=== PATIENT | female | born 2000 | race Caucasian/White ===

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

== ENCOUNTER 2020-01-10 16:52 | Inpatient (IN) | payer MEDICAID ==
[~2020-01-10] VITALS: Ht 167.6 cm; Wt 104.5 kg
[~2020-01-10 16:52] MED LIST changes: -ALL10TAB29 PO; +CETI-24 PO; +OLAN5TAB PO
[2020-01-10 17:39] LABS: HEMATOCRIT 36.8 % (36.0-47.0); MEAN CORPUSCULAR HEMOGLOBIN 29.4 pg (27.0-33.0); MEAN CORPUSCULAR HGB CONC 32.6 g/dl (32.0-36.5); MEAN CORPUSCULAR VOLUME 90.2 fl (80.0-96.0); PLATELET COUNT, AUTOMATED 231 10^3/uL (150-450); RED BLOOD COUNT 4.08 10^6/uL (4.00-5.40); WHITE BLOOD COUNT 7.1 10^3/uL (4.0-10.0)
[2020-01-10 18:03] LABS: AMPHETAMINES LEVEL URINE NEGATIVE (NEGATIVE); BARBITURATES URINE NEGATIVE (NEGATIVE); BENZODIAZEPINES URINE NEGATIVE (NEGATIVE); CANNABINOIDS URINE NEGATIVE (NEGATIVE); COCAINE METABOLITE URINE NEGATIVE (NEGATIVE); METHADONE URINE NEGATIVE (NEGATIVE); OPIATES URINE NEGATIVE (NEGATIVE); PHENCYCLIDINE URINE NEGATIVE (NEGATIVE)
[2020-01-10 18:12] LABS: HCG, SERUM QUALITATIVE NEGATIVE (NEGATIVE)
[2020-01-10 18:23] LABS: ACETAMINOPHEN LEVEL < 2.0 UG/ML (10.0-30.0); ALBUMIN 3.8 GM/DL (3.2-5.2); ALT/SGPT 61 U/L (12-78); BILIRUBIN,DIRECT 0.1 MG/DL (0.0-0.2); BILIRUBIN,TOTAL 0.4 MG/DL (0.2-1.0); BLOOD UREA NITROGEN 13 MG/DL (7-18); CALCIUM LEVEL 8.6 MG/DL (8.5-10.1); CARBON DIOXIDE LEVEL 26 MEQ/L (21-32); CHLORIDE LEVEL 108 MEQ/L (98-107); CREATININE FOR GFR 0.56 MG/DL (0.55-1.30); ETHYL ALCOHOL (ETHANOL) 0.004 % (0.000-0.010); GLUCOSE, FASTING 103 MG/DL (70-100); POTASSIUM SERUM 3.9 MEQ/L (3.5-5.1); SALICYLATE LEVEL < 1.7 MG/DL (5.0-30.0); SODIUM LEVEL 137 MEQ/L (136-145); THYROID STIMULATING HORMONE 0.842 uIU/ML (0.463-3.98); TOTAL PROTEIN 7.2 GM/DL (6.4-8.2)
[2020-01-10] MEDS ORDERED: OLAN5TAB PO (18:49)
[2020-01-10] MEDS ORDERED: LORazepam 2 MG TAB PO STA (19:38)
[2020-01-10] MEDS ORDERED: MOM 30ML SUSPENSION UDC PO PRN (20:45)
[2020-01-10] MEDS: ACETAMINOPHEN TAB 650MG DOSE (2X325MG) PO PRN (21:14)
[2020-01-10] MEDS: OLANZapine 5 MG TAB PO SCH (22:33)
[2020-01-10 22:35] VITALS: BP 124/58
[2020-01-10] MEDS: traZODone 50 MG TAB PO PRN (23:19)
[2020-01-10] MEDS: OLANZapine ORAL DISINTEGRATING TAB 5MG PO PRN (23:21)
[2020-01-11 06:22] VITALS: BP 132/72
[2020-01-11] MEDS: OLANZapine 5 MG TAB PO SCH (09:00)
--- NOTE | 2020-01-11 15:43 | HPEPDOC ---
[facility] Medical History & Physical Date of Admission Jan 11, 2020 Date of Service: Jan 11, 2020 History and Physical CHIEF COMPLAINT: Depression. HISTORY OF PRESENTING ILLNESS: 19-year-old female with history of bipolar, depression, antisocial personality, ineffective coping, malingering, multiple psychiatric admissions, ingestion of various chemicals and medications, morbid obesity, suicidal attempts admitted to inpatient mental health unit due to severe depression and suicidal ideation. she was just discharged from the hospital recently. Hospitalist was asked to assess for any medical issues. Currently denies any fever or chills, shortness of breath, chest pain, pressure or tightness, lightheadedness, dizziness. Denies any nausea or vomiting, abdominal pain, diarrhea, constipation, bright red blood per rectum, melena, black tarry stools. Denies dysuria, urgency, frequency, fever, chills, flank pain. PAST MEDICAL HISTORY: 1. Suicide attempts with ingestion of various chemicals and medications. 2. Borderline personality disorder. 3. Bipolar disorder. 4. Depression. 5. Morbid obesity. 6. Antisocial personality disorder. 7. Malingering. PAST SURGICAL HISTORY: None. ALLERGIES: To HALDOL and RISPERIDONE. HOME MEDICATIONS: Please see the chart. FAMILY HISTORY: Parents alive and well. SOCIAL HISTORY: Denies recreational drug use, alcohol, and smoking. REVIEW OF SYSTEMS: Per HPI. 12-point system otherwise negative. PHYSICAL EXAMINATION: Temperature 98, pulse 63, respiratory rate 16, blood pressure 122/58, 98% on room air. Generally awake, alert, and oriented times three, answering questions appropriately. No jugular venous distention (JVD). No thyromegaly. No cervical lymphadenopathy. Lungs are clear to auscultation. No wheezing, rales, or rhonchi. Heart: S1, S2, sinus rhythm. No murmurs, rubs, or gallops. Abdomen: Obese, soft, nontender, nondistended. Positive bowel sounds. Extremities: No cyanosis, clubbing, or pitting edema. ASSESSMENT AND PLAN: 19-year-old female with history of bipolar disorder, depression, suicide attempts by various ingestion of chemicals and substances admitted to the inpatient mental suicidal ideation and depression IMPRESSION: 1. Bipolar disorder. 2. Depression. 3. Antisocial personality. 4. Inappropriate coping with history of malingering. 5. History of suicide attempts by various chemical ingestions. 6. Morbid obesity. PLAN: Resumed on home meds managed by psychiatrist. No acute medical issues Thank you for the consult Vital Signs Vital Signs Date Time Temp Pulse Resp B/P (MAP) Pulse Ox O2 Delivery O2 Flow Rate FiO2 01/11/20 06:22 97.8 70 12 132/72 (92) Room Air 01/10/20 22:35 98 Laboratory Data Labs 24H Laboratory Tests 2 01/10/20 17:26: Nucleated Red Blood Cells % (auto) 0.0, Anion Gap 3L, Calcium Level 8.6, Total Bilirubin 0.4, Direct Bilirubin 0.1, Aspartate Amino Transf (AST/SGOT) 38H, Alanine Aminotransferase (ALT/SGPT) 61, Alkaline Phosphatase 108, Total Protein 7.2, Albumin 3.8, Albumin/Globulin Ratio 1.1L, Thyroid Stimulating Hormone (TSH) 0.842, Human Chorionic Gonadotropin, Qual NEGATIVE, Salicylates Level < 1.7L, Urine Opiates Screen NEGATIVE, Urine Methadone Screen NEGATIVE, Acetaminophen Level < 2.0L, Urine Barbiturates Screen NEGATIVE, Urine Phencyclidine Screen NEGATIVE, Urine Amphetamines Screen NEGATIVE, Urine Benzodiazepines Screen NEGATIVE, Urine Cocaine Metabolite Screen NEGATIVE, Urine Cannabinoids Screen NEGATIVE, Ethyl Alcohol Level 0.004 CBC/BMP Laboratory Tests 01/10/20 17:26 Home Medications Scheduled Olanzapine (Olanzapine) 5 Mg Tablet, 5 MG PO TID Allergies Coded Allergies: haloperidol (Verified Adverse Reaction, Intermediate, LOCKJAW, 01/03/20) Has required & received this med many time without EPS noted risperidone (Verified Adverse Reaction, Mild, PSORIASIS, 11/26/19) A-FIB/CHADSVASC A-FIB History Current/History of A-Fib/PAF?: No Current PO Anticoag Therapy: No ANABELLA العراقي MD Jan 11, 2020 15:43
[2020-01-11] MEDS: DIVALPROEX 250 MG TAB PO SCH ×3 (16:00→20:22)
[2020-01-11] MEDS: OLANZapine ORAL DISINTEGRATING TAB 5MG PO PRN ×2 (16:52→22:11)
--- NOTE | 2020-01-11 18:21 | MHHPEPDOC ---
General Legal Status: 9.39 Chief Complaint ". History of Present Illness HISTORY OF THE PRESENT ILLNESS: Patient is a 19 -year-old , female, valeria Ibarra was seen today for a psychiatric evaluation--the patient has had numerous psychiatric hospitalizations and in fact was just discharged from the inpatient psychiatric unit yesterday only to be readmitted within hours This visit was performed as a telehealth visit utilizing an interactive a/v telecommunications system or telephone that permitted real time communication between myself and the patient--permission/consent from patient/guardian was obtained Patient states that after her discharge from the unit yesterday which she felt was too precipitous she went to [facility] and was placed temporarily in a small apartment and she was very uncomfortable in being in--at that point she started to hear voices and became acutely suicidal--she then returned to our emergency room to be evaluated and it was decided upon consultation with the on-call psychiatrist that she be readmitted Today when I met with her we decided after talking about what brought her back to the hospital that we would start a mood stabilizing medication specifically Depakote--she stated that she had been on Depakote in the past but was unsure as to how long she had been on it and whether or not it was helpful--she does not remember any kind of allergic reaction to it She stated that she does not want any kind of neuroleptic cord dopamine blocking agent at this point and in that regard the order of Zyprexa was discontinued Her mental status today was that she was alert and oriented although she was agitated and emotionally labile irritable and angry She denied any immediate auditory or visual hallucinations She did not appear to have any delusional thinking Her speech was pressured Her mood was depressed and agitated Her affect was consistent with her mood We will start with Depakote 250 mg twice daily morning and night Diagnosis bipolar disorder and borderline personality disorder 30 minutes was spent with the patient and the evaluation Psychiatric Review of Systems Depression (2 or more weeks): depressed mood, feelings of worthlesness, difficulty concentrating, suicidal thoughts Cecile (4 or more days of): irritable/elevated mood, expansive mood, flight of ideas PTSD: history of trauma Anxiety: situational anxiety, stressor related anxiety Past Psychiatric History Previous Psychiatric Diagnosis: . Previous Psychiatric Admissions: . Suicide Attempts: . Psychiatric Follow-up: . Psychiatric medications: . Past Medical History Head Injury: No Seizures: No Hospitalizations: No Surgeries: No Family Medical/Psychiatric HX Psychiatric Disorders: No Addiction: No Suicide Attemps/Completions: No Social History Childhood: . Abuse/Trauma:. Current Living Situation: . Education: . Employment: . Social Support: . Legal: . Marital: . A-FIB/CHADSVASC A-FIB History Current/History of A-Fib/PAF?: No Current PO Anticoag Therapy: No Initial Treatment Plan 1. Patient was admitted on a [9.39] status. 2. Complete history was obtained. 3. With patients permission, family will be contacted and database will be expanded. 4. Patients medication regimen will be reviewed and changed accordingly. 5. Patient will be provided with protected environment. 6. Patient will be treated with individual, group, and milieu therapies. 7. Patient will receive supportive psych-education. 8. Discharge planning will commence immediately. 9. Outpatient follow-up treatment will be strongly recommended. 10. The initial treatment plan will focus initially on: * Depression. * Risk for suicide. ESTIMATED LENGTH OF STAY: - DAYS. TIME SPENT COUNSELING AND COORDINATING INITIAL CARE: minutes. Vital Signs Vital Signs Date Time Temp Pulse Resp B/P (MAP) Pulse Ox O2 Delivery O2 Flow Rate FiO2 01/11/20 06:22 97.8 70 12 132/72 (92) Room Air 01/10/20 22:35 98 Medications Scheduled Olanzapine (Olanzapine) 5 Mg Tablet, 5 MG PO TID, (Reported) Allergies Coded Allergies: haloperidol (Verified Adverse Reaction, Intermediate, LOCKJAW, 01/03/20) Has required & received this med many time without EPS noted risperidone (Verified Adverse Reaction, Mild, PSORIASIS, 11/26/19) Rigo Smith MD Jan 11, 2020 18:21
[2020-01-11] MEDS ORDERED: diphenhydrAMINE 50MG/ML VIAL (J1200) IM ONE (20:15)
[2020-01-11] MEDS ORDERED: OLANZapine INTRAMUSCULAR 10MG VIAL IM ONE (20:15)
[2020-01-11] MEDS: ACETAMINOPHEN TAB 650MG DOSE (2X325MG) PO PRN (20:52)
[2020-01-11] MEDS ORDERED: HALOPERIDOL 5MG/ML VIAL (J1630 PER 1) IM ONE (23:00)
[2020-01-11 23:44] VITALS: BP 128/76
[2020-01-12] MEDS: DIVALPROEX 250 MG TAB PO SCH (11:18)
[2020-01-12] MEDS: ACETAMINOPHEN TAB 650MG DOSE (2X325MG) PO PRN (12:50)
[2020-01-12] MEDS: DIVALPROEX 500MG *ER* TAB PO SCH ×3 (14:15→21:40)
--- NOTE | 2020-01-12 14:31 | MHIPNPDOC ---
[facility] Progress Note Progress Note DATE OF SERVICE: 01/12/20 roldan was seen today for her medical psychotherapy Patient was seen for a medical psychotherapy session in which the patient's treatment plan was reviewed, mental status exam performed, vital signs reviewed, current medical conditions reviewed, and treatment goals were reviewed This visit was performed as a telehealth visit utilizing an interactive a/v telecommunications system or telephone that permitted real time communication between myself and the patient--permission/consent from patient/guardian was obtained The patient had a difficult evening yesterday requiring additional as needed medication in order to remain in control and diminish or aggression Today she came into the session primarily to convey her unhappiness with the treatment setting here We talked about the importance of compliance with medication and decided together to increase the dose of the Depakote which is going to hopefully help her with her anger response--the medication will be increased to 500 mg extended release twice a day MENTAL STATUS EXAM Level of consciousness--patient was alert and oriented to time place person Appearance-normal posture, normal dress, no prominent physical abnormalities, alert, cooperative Behavior--like to good, no psychomotor agitation or retardation, no abnormal movements, no tremor Speech--normal rate and rhythm--normal volume Mood--euthymic Affect--normal range and consistent with mood--stable Thought processes--logical and linear , goal directed and coherent--no thought blocking or flight of ideas, no loose associations, no tangential thinking, no word salad, no thought blocking, no circumstantiality Thought content--no ideas of reference no auditory or visual hallucinations, no delusional thinking, no thoughts of derealization or depersonalization, no obsessive thinking, no expressed phobias, Cognition--patient was alert and able to focus-sustained appropriate mental attention-memory immediate and short-term memory intact-abstract thinking present, Insight---fair Judgment or the ability to anticipate consequences of behavior intact Patient denied any suicidal ideation or impulses Patient denied any homicidal impulses or ideation 20 minutes was spent with the patient and documentation No other changes in treatment plan Vital Signs Vital Signs Date Time Temp Pulse Resp B/P (MAP) Pulse Ox O2 Delivery O2 Flow Rate FiO2 01/11/20 23:44 98.2 90 16 128/76 (93) 100 Room Air Current Medications Current Medications Medications (Trade) Dose Ordered Sig/Brielle Route PRN Reason Start Time Stop Time Status Last Admin Dose Admin Acetaminophen (Tylenol Tab) 650 mg Q6HP PRN PO HEADACHE or DISCOMFORT 01/10/20 20:45 01/12/20 12:50 Al Hydrox/Mg Hydrox/Simethicone (Mylanta) 30 ml Q4HP PRN PO HEARTBURN/INDIGESTION 01/10/20 20:45 Divalproex Sodium (Depakote Er) 500 mg BID PO 01/12/20 09:00 01/12/20 14:22 Divalproex Sodium (Depakote) 250 mg TID PO 01/11/20 16:00 01/12/20 13:52 DC 01/11/20 20:22 Home Med (Med Rec Complete!) ASDIRECTED XX 01/10/20 19:00 01/10/20 18:51 DC Lorazepam (Ativan) 2 mg STAT STAT PO 01/10/20 19:38 01/10/20 19:39 DC 01/10/20 19:49 Magnesium Hydroxide (Milk Of Magnesia) 30 ml DAILYPRN PRN PO CONSTIPATION 01/10/20 20:45 Olanzapine (ZyPREXA ZYDIS) 5 mg Q4HP PRN PO AGITATION 01/10/20 20:45 01/11/20 22:11 Olanzapine (ZyPREXA) 5 mg TID PO 01/10/20 21:00 01/11/20 16:31 DC 01/10/20 22:33 Trazodone HCl (Desyrel) 50 mg QHSP PRN PO INSOMNIA 01/10/20 20:45 01/10/20 23:19 Allergies Coded Allergies: haloperidol (Verified Adverse Reaction, Intermediate, LOCKJAW, 01/03/20) Has required & received this med many time without EPS noted risperidone (Verified Adverse Reaction, Mild, PSORIASIS, 11/26/19) Rigo Smith MD Jan 12, 2020 14:31
[2020-01-12 18:09] VITALS: BP 143/80
[2020-01-12] MEDS ORDERED: LORazepam 2 MG/ML VIAL IM STA (20:07)
[2020-01-12] MEDS ORDERED: diphenhydrAMINE 50MG/ML VIAL (J1200) IM STA (20:07)
[2020-01-12] MEDS ORDERED: HALOPERIDOL 5MG/ML VIAL (J1630 PER 1) IM STA (20:07)
--- NOTE | 2020-01-12 20:18 | IPNPDOC ---
Text Note Date of Service The patient was seen on 01/12/20. NOTE TIME OF SERVICE approx 800PM PSYCH CERTIFICATION FACE TO FACE: yes PHYSICIAN ASSESSMENT: The patient was angry, yelling and swearing at staff and not following verbal instructions GEN: agitated / yelling REASON FOR RESTRAINT: The patient was a danger to the staff. DE-ESCALATION INTERVENTIONS ATTEMPTED BEFORE USE OF RESTRAINTS: verbal redirection MECHANICAL AND/OR CHEMICAL] RESTRAINTS USED: Both LENGTH OF TIME ORDERED IN RESTRAINTS: 4 hours WHEN TO DISCONTINUE RESTRAINTS: When the patient is no longer a threat to to herself or others Post evaluation of restraint due in 24 hours. VS,Fishbone, I+O VS, Fishbone, I+O Vital Signs Date Time Temp Pulse Resp B/P (MAP) Pulse Ox O2 Delivery O2 Flow Rate FiO2 01/12/20 18:09 98.3 96 18 143/80 (101) 01/11/20 23:44 100 Room Air STEFANY CONLEY MD Jan 12, 2020 20:18
[2020-01-12 21:00] VITALS: BP 138/55
[2020-01-12 21:15] VITALS: BP 133/63
[2020-01-12] MEDS: MAALOX 30 ML SUSP *UDC PO PRN (23:51)
[2020-01-12] MEDS: traZODone 50 MG TAB PO PRN (23:52)
[2020-01-13] MEDS: DIVALPROEX 500MG *ER* TAB PO SCH ×2 (09:00→21:00)
[2020-01-13 15:49] VITALS: BP 124/71
[2020-01-13] MEDS ORDERED: diphenhydrAMINE 50MG CAP PO ONE (20:30)
[2020-01-13] MEDS ORDERED: LORazepam 2 MG TAB PO ONE (20:30)
[2020-01-13] MEDS: OLANZapine ORAL DISINTEGRATING TAB 5MG PO PRN (22:11)
[2020-01-14] MEDS: DIVALPROEX 500MG *ER* TAB PO SCH ×2 (09:00→21:00)
--- NOTE | 2020-01-14 09:14 | MHIPN ---
DATE: 01/13/2020 The patient was not seen today because she actually refused to see me. (DICTATION ENDED HERE)
[2020-01-14] MEDS: OLANZapine ORAL DISINTEGRATING TAB 5MG PO PRN (16:42)
[2020-01-14] MEDS ORDERED: LORazepam 2 MG TAB PO ONE (19:45)
[2020-01-14] MEDS ORDERED: diphenhydrAMINE 50MG CAP PO ONE (19:45)
[2020-01-14] MEDS ORDERED: diphenhydrAMINE 50MG/ML VIAL (J1200) IM ONE (20:30)
[2020-01-14] MEDS ORDERED: HALOPERIDOL 5MG/ML VIAL (J1630 PER 1) IM ONE (20:30)
[2020-01-14] MEDS ORDERED: LORazepam 2 MG/ML VIAL IM ONE (20:30)
[2020-01-14 21:00] VITALS: BP_SYST 122; BP_SYST 134; BP_DIAS 61
[2020-01-14 21:15] VITALS: BP 124/61
--- NOTE | 2020-01-14 21:23 | IPNPDOC ---
Text Note Date of Service The patient was seen on 01/14/20. NOTE TIME OF SERVICE approx 758PM PSYCH CERTIFICATION FACE TO FACE: yes PHYSICIAN ASSESSMENT: The patient was angry, yelling at staff and not following verbal instructions REASON FOR RESTRAINT: The patient was a danger to the staff. DE-ESCALATION INTERVENTIONS ATTEMPTED BEFORE USE OF RESTRAINTS: verbal redirection MECHANICAL AND/OR CHEMICAL] RESTRAINTS USED: Both LENGTH OF TIME ORDERED IN RESTRAINTS: 4 hours WHEN TO DISCONTINUE RESTRAINTS: When the patient is no longer a threat to to herself or others Post evaluation of restraint due in 24 hours. VS,Fishbone, I+O VS, Fishbone, I+O Vital Signs Date Time Temp Pulse Resp B/P (MAP) Pulse Ox O2 Delivery O2 Flow Rate FiO2 01/14/20 21:15 98.4 83 14 124/61 (82) 97 Room Air STEFANY CONLEY MD Jan 14, 2020 21:23
[2020-01-14 21:35] VITALS: BP 134/61
[2020-01-14] MEDS: ACETAMINOPHEN TAB 650MG DOSE (2X325MG) PO PRN (23:23)
[2020-01-15] VITALS (7 sets, daily range): BP systolic 114–183; BP diastolic 57–115
[2020-01-15] MEDS ORDERED: LORazepam 2 MG/ML VIAL IM STA (01:13)
[2020-01-15] MEDS ORDERED: diphenhydrAMINE 50MG/ML VIAL (J1200) IM STA (01:13)
[2020-01-15] MEDS ORDERED: HALOPERIDOL 5MG/ML VIAL (J1630 PER 1) IM STA (01:13)
--- NOTE | 2020-01-15 01:21 | IPNPDOC ---
Text Note Date of Service The patient was seen on 01/15/20. NOTE TIME OF SERVICE approx 115AM PSYCH CERTIFICATION FACE TO FACE: yes PHYSICIAN ASSESSMENT: The patient was angry, yelling & swearing at staff and not following verbal instructions. REASON FOR RESTRAINT: The patient was a danger to the staff. DE-ESCALATION INTERVENTIONS ATTEMPTED BEFORE USE OF RESTRAINTS: verbal redirection MECHANICAL AND/OR CHEMICAL] RESTRAINTS USED: Both LENGTH OF TIME ORDERED IN RESTRAINTS: 4 hours WHEN TO DISCONTINUE RESTRAINTS: When the patient is no longer a threat to to herself or others Post evaluation of restraint due in 24 hours. VS,Fishbone, I+O VS, Fishbone, I+O Vital Signs Date Time Temp Pulse Resp B/P (MAP) Pulse Ox O2 Delivery O2 Flow Rate FiO2 01/14/20 21:35 98.5 74 14 134/61 100 Room Air STEFANY CONLEY MD Jan 15, 2020 01:21
[2020-01-15] MEDS: DIVALPROEX 500MG *ER* TAB PO SCH ×2 (09:00→19:58)
--- NOTE | 2020-01-15 09:28 | MHIPNPDOC ---
[facility] Progress Note Progress Note DATE OF SERVICE: 01/15/20 HPI: patient is attempted to be seen.However, She was asleep for a majority of the day and is generally unable to engage in any meaningful discussions. She gen altay has been behaviorally problematic and had shown disinterest in engaging. MEDICATIONS: Drug assessment could not be completed due to her being asleep and being uninterested. Objective Patient asleep Assessment F60.3 Borderline personality disorder F32.9 Major depressive disorder, single episode, unspecified Plan Consider alternatives and attempt to figure out a plan that will continue however difficult. Patient continues to refuse, her options at this time are quite grim as she has exhausted all forms of social support, and we are generally unable to create a significant plan for her. Continue to attempt to determine the most effective option. Vital Signs Vital Signs Date Time Temp Pulse Resp B/P (MAP) Pulse Ox O2 Delivery O2 Flow Rate FiO2 01/15/20 03:00 97.3 72 16 114/68 98 Room Air Current Medications Current Medications Medications (Trade) Dose Ordered Sig/Brielle Route PRN Reason Start Time Stop Time Status Last Admin Dose Admin Acetaminophen (Tylenol Tab) 650 mg Q6HP PRN PO HEADACHE or DISCOMFORT 01/10/20 20:45 01/14/20 23:23 Al Hydrox/Mg Hydrox/Simethicone (Mylanta) 30 ml Q4HP PRN PO HEARTBURN/INDIGESTION 01/10/20 20:45 01/12/20 23:51 Diphenhydramine HCl (Benadryl) 50 mg STAT STAT IM 01/12/20 20:07 01/12/20 20:09 DC 01/12/20 20:16 Diphenhydramine HCl (Benadryl) 50 mg STAT STAT IM 01/15/20 01:13 01/15/20 01:15 DC 01/15/20 01:18 Divalproex Sodium (Depakote Er) 500 mg BID PO 01/12/20 09:00 01/12/20 21:40 Divalproex Sodium (Depakote) 250 mg TID PO 01/11/20 16:00 01/12/20 13:52 DC 01/11/20 20:22 Haloperidol (Haldol) 10 mg STAT STAT IM 01/12/20 20:07 01/12/20 20:09 DC 01/12/20 20:16 Haloperidol (Haldol) 10 mg STAT STAT IM 01/15/20 01:13 01/15/20 01:14 DC 01/15/20 01:18 Home Med (Med Rec Complete!) ASDIRECTED XX 01/10/20 19:00 01/10/20 18:51 DC Lorazepam (Ativan) 2 mg STAT STAT IM 01/12/20 20:07 01/12/20 20:09 DC 01/12/20 20:16 Lorazepam (Ativan) 2 mg STAT STAT IM 01/15/20 01:13 01/15/20 01:15 DC 01/15/20 01:19 Lorazepam (Ativan) 2 mg STAT STAT PO 01/10/20 19:38 01/10/20 19:39 DC 01/10/20 19:49 Magnesium Hydroxide (Milk Of Magnesia) 30 ml DAILYPRN PRN PO CONSTIPATION 01/10/20 20:45 Olanzapine (ZyPREXA ZYDIS) 5 mg Q4HP PRN PO AGITATION 01/10/20 20:45 01/14/20 16:42 Olanzapine (ZyPREXA) 5 mg TID PO 01/10/20 21:00 01/11/20 16:31 DC 01/10/20 22:33 Trazodone HCl (Desyrel) 50 mg QHSP PRN PO INSOMNIA 01/10/20 20:45 01/12/20 23:52 Allergies Coded Allergies: haloperidol (Verified Adverse Reaction, Intermediate, LOCKJAW, 01/03/20) Has required & received this med many time without EPS noted risperidone (Verified Adverse Reaction, Mild, PSORIASIS, 11/26/19) FELIX BUTCHER DO Jan 15, 2020 09:28
--- NOTE | 2020-01-15 09:31 | MHIPNPDOC ---
[facility] Progress Note Progress Note DATE OF SERVICE: 01/15/20 HISTORY: . VITAL SIGNS: See below. NEW TEST RESULTS: . CURRENT MEDICATIONS: See below. MENTAL STATUS EXAMINATION: Patient is a -year old female, who is . Speech: Is . Language skills are . Thought processes including: . Thought content: . Abstract reasoning, and computation: . Description of assoc iations: . Description of abnormal or psychotic thoughts: . Judgment: . Insight: [very limited, good, fair. poor]. Orientation: . Recent and remote memory: . Attention span and concentration: . Language: . Fund of knowledge: . Mood: . Affect: . DIAGNOSES: 1. . 2. . 3. . ASSESSMENT: MANAGEMENT PLAN: . TIME SPENT: minutes. Vital Signs Vital Signs Date Time Temp Pulse Resp B/P (MAP) Pulse Ox O2 Delivery O2 Flow Rate FiO2 01/15/20 03:00 97.3 72 16 114/68 98 Room Air Current Medications Current Medications Medications (Trade) Dose Ordered Sig/Brielle Route PRN Reason Start Time Stop Time Status Last Admin Dose Admin Acetaminophen (Tylenol Tab) 650 mg Q6HP PRN PO HEADACHE or DISCOMFORT 01/10/20 20:45 01/14/20 23:23 Al Hydrox/Mg Hydrox/Simethicone (Mylanta) 30 ml Q4HP PRN PO HEARTBURN/INDIGESTION 01/10/20 20:45 01/12/20 23:51 Diphenhydramine HCl (Benadryl) 50 mg STAT STAT IM 01/12/20 20:07 01/12/20 20:09 DC 01/12/20 20:16 Diphenhydramine HCl (Benadryl) 50 mg STAT STAT IM 01/15/20 01:13 01/15/20 01:15 DC 01/15/20 01:18 Divalproex Sodium (Depakote Er) 500 mg BID PO 01/12/20 09:00 01/12/20 21:40 Divalproex Sodium (Depakote) 250 mg TID PO 01/11/20 16:00 01/12/20 13:52 DC 01/11/20 20:22 Haloperidol (Haldol) 10 mg STAT STAT IM 01/12/20 20:07 01/12/20 20:09 DC 01/12/20 20:16 Haloperidol (Haldol) 10 mg STAT STAT IM 01/15/20 01:13 01/15/20 01:14 DC 01/15/20 01:18 Home Med (Med Rec Complete!) ASDIRECTED XX 01/10/20 19:00 01/10/20 18:51 DC Lorazepam (Ativan) 2 mg STAT STAT IM 01/12/20 20:07 01/12/20 20:09 DC 01/12/20 20:16 Lorazepam (Ativan) 2 mg STAT STAT IM 01/15/20 01:13 01/15/20 01:15 DC 01/15/20 01:19 Lorazepam (Ativan) 2 mg STAT STAT PO 01/10/20 19:38 01/10/20 19:39 DC 01/10/20 19:49 Magnesium Hydroxide (Milk Of Magnesia) 30 ml DAILYPRN PRN PO CONSTIPATION 01/10/20 20:45 Olanzapine (ZyPREXA ZYDIS) 5 mg Q4HP PRN PO AGITATION 01/10/20 20:45 01/14/20 16:42 Olanzapine (ZyPREXA) 5 mg TID PO 01/10/20 21:00 01/11/20 16:31 DC 01/10/20 22:33 Trazodone HCl (Desyrel) 50 mg QHSP PRN PO INSOMNIA 01/10/20 20:45 01/12/20 23:52 Allergies Coded Allergies: haloperidol (Verified Adverse Reaction, Intermediate, LOCKJAW, 01/03/20) Has required & received this med many time without EPS noted risperidone (Verified Adverse Reaction, Mild, PSORIASIS, 11/26/19) FELIX BUTCHER DO Jan 15, 2020 09:31
--- NOTE | 2020-01-15 10:59 | MHIPN ---
DATE OF SERVICE: 01/14/2020 The patient is seen via telepsychiatry due to the current Coronavirus crisis. The patient basically tells me that "I just woke up and I want to get off one-to-one". She became upset because I told her that I was not prepared to take her off of stage I and so she just basically stated that she was not going to "waste my time" and she got up and left. MENTAL STATUS EXAMINATION: I am not able to really do a whole mental status exam on this patient because she just basically got up and left. DIAGNOSIS: Bipolar disorder. Borderline personality disorder. TREATMENT PLAN: We will continue to monitor the patient for continued elevation and stabilization of her mood and behavior.
[2020-01-15] MEDS: OLANZapine ORAL DISINTEGRATING TAB 5MG PO PRN (19:58)
[2020-01-15] MEDS: ACETAMINOPHEN TAB 650MG DOSE (2X325MG) PO PRN (19:59)
--- NOTE | 2020-01-15 20:38 | IPNPDOC ---
Text Note Date of Service The patient was seen on 01/15/20. NOTE Pt was c/o of ankle pain and inability to walk. On PE ankle is swollen and she c/o pain with passive flexion. #Right ankle pain r/o fx Plan: f/u xray of right ankle / ibuprofen PRN VS,Fishbone, I+O VS, Fishbone, I+O Vital Signs Date Time Temp Pulse Resp B/P (MAP) Pulse Ox O2 Delivery O2 Flow Rate FiO2 01/15/20 12:52 Room Air 01/15/20 03:00 97.3 72 16 114/68 98 STEFANY CONLEY MD Jan 15, 2020 20:37
[2020-01-15] MEDS: IBUPROFEN 800 MG TAB PO PRN (21:38)
[2020-01-16] MEDS: DIVALPROEX 500MG *ER* TAB PO SCH ×2 (09:10→21:00)
[2020-01-16] MEDS: IBUPROFEN 800 MG TAB PO PRN ×2 (09:15→23:33)
[2020-01-16] MEDS: ACETAMINOPHEN TAB 650MG DOSE (2X325MG) PO PRN ×2 (13:45→23:33)
[2020-01-16] MEDS ORDERED: PERCOCET 5MG/325MG TAB PO ONE (14:30)
[2020-01-16 16:40] VITALS: BP 134/82
--- NOTE | 2020-01-16 17:14 | IPNPDOC ---
Subjective Date Seen The patient was seen on 01/16/20. Subjective Chief Complaint/HPI patient was psychotic last night and was jumping from bed to bed and twisted her right ankle. Xray of the right ankle showed lateral malleolar fracture and longitudinal fracture of the distal fibula nondisplaced. Patient with severe pain . Ortho consulted. started on percocet for pain control. Objective Physical Examination General Exam: Positive: Alert, Cooperative, Moderate Distress (screaming, crying , using foul language) Eye Exam: Positive: PERRLA, Conjunctiva & lids normal, EOMI; Negative: Sclera icteric ENT Exam: Positive: Atraumatic, Mucous membr. moist/pink, Pharynx Normal Neck Exam: Positive: Supple; Negative: JVD, thyromegaly Chest Exam: Positive: Clear to auscultation, Normal air movement Heart Exam: Positive: Rate Normal, Regular Rhythm, Normal S1, Normal S2; Negative: Murmurs, Rubs Abdomen Exam: Positive: Normal bowel sounds, Soft; Negative: Tenderness, Hepatospenomegaly Extremity Exam: Positive: Tenderness (right ankle and fot), Swelling (right ankle and foot) Skin Exam: Positive: Nl turgor and temperature; Negative: Rash, Breakdown Neuro Exam: Positive: Normal Speech, Strength at 5/5 X4 ext, Normal Tone Assessment /Plan Assessment 19-year-old female with history of bipolar disorder, depression, suicide attempts by various ingestion of chemicals and substances, antisocial personality behavior, obesity, inappropriate coping, h/o malingering was admitted to the inpatient mental suicidal ideation and depression. She was having a psychotic episode last night jumping from bed to bed when she twisted her right ankle and sustained fracture. Right ankle fracture involving the lateral malleolus and distal fibula consulted Orthopedics No surgical intervention needed. will give Percocet for pain control. further management as per ortho. DVT prophylaxis if needed as per ortho Psych problems as per psychiatry. We will continue to follow this patient. Plan/VTE VTE Prophylaxis Ordered?: No VS, I&O, 24H, Fishbone Vital Signs/I&O Vital Signs Date Time Temp Pulse Resp B/P (MAP) Pulse Ox O2 Delivery O2 Flow Rate FiO2 01/16/20 16:40 98.5 93 20 134/82 (99) 01/15/20 19:20 98 Room Air AYALA DE LA CRUZ MD Jan 16, 2020 17:14
--- NOTE | 2020-01-16 18:55 | CR ---
DATE OF CONSULTATION: 01/16/2020 CHIEF COMPLAINT: Right ankle pain. HISTORY OF PRESENT ILLNESS: Yareli was admitted due to mental health issues last night, 01/15/2020. Upon admission, was complaining of ankle pain and x-ray was taken showing a nondisplaced distal fibula fracture. Orthopedics was consulted to apply a splint. Health survey was reviewed. Pertinent positives and negatives were noted. Physical exam revealed a well-developed, well-nourished in no acute distress, alert female. Inspection of the leg revealed fusiform edema about the ankle on the right, tenderness to palpation laterally, no medial ankle tenderness. The patient reported intact sensation to light touch through the foot with palpable distal pulses and brisk capillary refill. Calf was soft and nontender. There were no palpable cords. Images nondisplaced right distal fibula fracture. IMPRESSION: Nondisplaced right distal fibula fracture in an inpatient mental health patient. PLAN: The plan was to go ahead and apply a splint so that was accomplished using Ortho-Glass cast padding and Matthias wrap. The patient tolerated the application well and there were no complications. She is going to go to physical therapy for evaluation and training for crutch use. She is non-weightbearing to the right lower extremity and she is going to followup at the [facility] this week for application of the cast. Recommended pain control is 1000 mg of Tylenol up to three times a day as well as elevation above the level of the heart. For further details please see the medical record.
--- NOTE | 2020-01-16 20:35 | MHIPN ---
DATE: 01/16/2020 The patient today was very angry and agitated at me because she wanted to be discharged today. However, the patient continues to be very agitated and had to be given more medication of Haldol 10 mg, Ativan 2 mg, Benadryl 50 mg. Actually she has been doing this almost every night, and she has had to be placed in restraints at times, also. Therefore, I discussed with the patient that I do not think that she is stable, and I also discussed with her that every time we discharge her, she keeps coming back to the emergency room and so I feel that we really need to see stabilization from her, at least for a few days. MENTAL STATUS EXAM: This patient was alert and oriented times three. She was verbally spontaneous; actually she was pretty angry and yelling and mood is angry, affect is labile. She did not say anything that made me think she was psychotic. She did not voice any actual suicidal or homicidal thoughts today. Her concentration is poor. Insight and judgment poor. DIAGNOSES: Bipolar disorder. Borderline personality disorder. TREATMENT PLAN: At this point, we will continue to monitor the patient for her continued episodes of agitation and aggressive behavior and voicing of self-harm thoughts. The plan will be to discharge her when she does show that she is able to remain in control and exhibit some degree of mood stabilization and is no longer felt to be a danger to herself or others.
[2020-01-16] MEDS ORDERED: LORazepam 1 MG TAB PO ONE (21:30)
[2020-01-16] MEDS ORDERED: LORazepam 2 MG/ML VIAL IM STA (21:58)
[2020-01-16] MEDS ORDERED: HALOPERIDOL 5MG/ML VIAL (J1630 PER 1) IM STA (21:58)
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
[2020-01-16 23:00] VITALS: BP 131/65
[2020-01-17 06:49] VITALS: BP 132/75
[2020-01-17] MEDS: haloperidoL 5 MG TAB PO SCH ×2 (09:00→21:03)
[2020-01-17] MEDS: DIVALPROEX 500MG *ER* TAB PO SCH ×2 (09:00→21:04)
--- NOTE | 2020-01-17 09:36 | MHPR ---
General Date: Jan 17, 2020 Time: 10:30 Post-Restraint Evaluation THE OUTCOME OF THE RESTRAINT: positive EFFECTIVENESS OF THE RESTRAINT: Mechanical and/or chemical: [Positive]. ANY EVIDENCE THAT THE PATIENT WAS AFFECTED EMOTIONALLY: no ANY NEED FOR COUNSELING/ASSISTANCE: no CHANGES IN TREATMENT PLAN: change to haldol scheduled RECOMMENDATIONS FOR FUTURE INCIDENTS: attention seeking behavior should not be endulged FELIX BUTCHER DO Jan 17, 2020 09:36
--- NOTE | 2020-01-17 09:36 | MHIPNPDOC ---
[facility] Progress Note Progress Note DATE OF SERVICE: 01/17/20 Subjective Patient still resistant and having behavioral issues, doesn't want to engage in any meaningful discussion today and is highly attention seeking. Objective Behavior: Disshoveled. Uninterested. Laying in bed generally does not want ot speak. Affect: Irritable. Dysphoric. Speech: Normal rate. Normal volume. Cognition: Alert, Attentive, and Oriented to person, place, time. Judgement: Limited. Insight: Limited. Assessment F33.40 Major depressive disorder, recurrent, in remission, unspecified F60.3 Borderline personality disorder F60.2 Antisocial personality disorder Plan Continue to focus on behavioral disengagement to uncouple patients behavioral problems primarily focusing on negative reinforcement. Continue one-to-one sitter Patients allergy to Haldol is not likely an allergy Attempted to change medications due to previous restraint ordered. Vital Signs Vital Signs Date Time Temp Pulse Resp B/P (MAP) Pulse Ox O2 Delivery O2 Flow Rate FiO2 01/17/20 06:49 98.3 75 12 132/75 (94) Room Air 01/16/20 23:00 100 Current Medications Current Medications Medications (Trade) Dose Ordered Sig/Brielle Route PRN Reason Start Time Stop Time Status Last Admin Dose Admin Acetaminophen (Tylenol Tab) 650 mg Q6HP PRN PO HEADACHE or DISCOMFORT 01/10/20 20:45 01/16/20 23:33 Al Hydrox/Mg Hydrox/Simethicone (Mylanta) 30 ml Q4HP PRN PO HEARTBURN/INDIGESTION 01/10/20 20:45 01/12/20 23:51 Diphenhydramine HCl (Benadryl) 50 mg STAT STAT IM 01/12/20 20:07 01/12/20 20:09 DC 01/12/20 20:16 Diphenhydramine HCl (Benadryl) 50 mg STAT STAT IM 01/15/20 01:13 01/15/20 01:15 DC 01/15/20 01:18 Divalproex Sodium (Depakote Er) 500 mg BID PO 01/12/20 09:00 01/16/20 09:10 Divalproex Sodium (Depakote) 250 mg TID PO 01/11/20 16:00 01/12/20 13:52 DC 01/11/20 20:22 Haloperidol (Haldol) 7.5 mg STAT STAT IM 01/16/20 21:58 01/16/20 22:00 DC 01/16/20 22:06 Haloperidol (Haldol) 10 mg STAT STAT IM 01/12/20 20:07 01/12/20 20:09 DC 01/12/20 20:16 Haloperidol (Haldol) 10 mg STAT STAT IM 01/15/20 01:13 01/15/20 01:14 DC 01/15/20 01:18 Home Med (Med Rec Complete!) ASDIRECTED XX 01/10/20 19:00 01/10/20 18:51 DC Ibuprofen (Advil) 800 mg Q6HP PRN PO MODERATE PAIN (PS 5-7) 01/15/20 20:45 01/16/20 23:33 Lorazepam (Ativan) 1 mg STAT STAT IM 01/16/20 21:58 01/16/20 22:00 DC 01/16/20 22:06 Lorazepam (Ativan) 2 mg STAT STAT IM 01/12/20 20:07 01/12/20 20:09 DC 01/12/20 20:16 Lorazepam (Ativan) 2 mg STAT STAT IM 01/15/20 01:13 01/15/20 01:15 DC 01/15/20 01:19 Lorazepam (Ativan) 2 mg STAT STAT PO 01/10/20 19:38 01/10/20 19:39 DC 01/10/20 19:49 Magnesium Hydroxide (Milk Of Magnesia) 30 ml DAILYPRN PRN PO CONSTIPATION 01/10/20 20:45 Olanzapine (ZyPREXA ZYDIS) 5 mg Q4HP PRN PO AGITATION 01/10/20 20:45 01/15/20 19:58 Olanzapine (ZyPREXA) 5 mg TID PO 01/10/20 21:00 01/11/20 16:31 DC 01/10/20 22:33 Trazodone HCl (Desyrel) 50 mg QHSP PRN PO INSOMNIA 01/10/20 20:45 01/12/20 23:52 Allergies Coded Allergies: haloperidol (Verified Adverse Reaction, Intermediate, LOCKJAW, 01/03/20) Has required & received this med many time without EPS noted risperidone (Verified Adverse Reaction, Mild, PSORIASIS, 11/26/19) FELIX BUTCHER DO Jan 17, 2020 09:36
[2020-01-17] MEDS ORDERED: chlorproMAZINE INJ 50MG/2ML AMP (J3230) IM ONE (11:15)
[2020-01-17] MEDS ORDERED: chlorproMAZINE INJ 50MG/2ML AMP (J3230) IM STA (16:01)
[2020-01-17 16:10] VITALS: BP 135/77
[2020-01-17 16:25] VITALS: BP 159/70
[2020-01-17 16:40] VITALS: BP 148/67
[2020-01-17 16:55] VITALS: BP 142/83
[2020-01-17 17:10] VITALS: BP 152/90
[2020-01-17] MEDS: traZODone 50 MG TAB PO PRN (21:03)
[2020-01-17] MEDS: IBUPROFEN 800 MG TAB PO PRN (21:04)
[2020-01-17] MEDS ORDERED: zolPIDEM TARTRATE 5 MG TAB PO ONE (23:30)
[2020-01-17] MEDS: ACETAMINOPHEN TAB 650MG DOSE (2X325MG) PO PRN (23:39)
[2020-01-18] MEDS: haloperidoL 5 MG TAB PO SCH ×2 (09:00→20:36)
[2020-01-18] MEDS: DIVALPROEX 500MG *ER* TAB PO SCH ×2 (09:00→20:37)
[2020-01-18] MEDS: amLODIPine 5 MG TAB PO SCH (09:00)
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
--- NOTE | 2020-01-18 12:57 | IPNPDOC ---
Text Note Date of Service The patient was seen on 01/18/20. NOTE No acute medical issues at this point. Her ankle fracture has been casted by orthopedics. Razo control with ibuprofen and tylenol. Her blood pressure mildly elevated from yesterday possibly due to pain and her psych issues will make amlodipine 5 mg available if needed. Hospitalist will sign off. Please reconsult if needed. VS,Fishbone, I+O VS, Fishbone, I+O Vital Signs Date Time Temp Pulse Resp B/P (MAP) Pulse Ox O2 Delivery O2 Flow Rate FiO2 01/17/20 17:10 96.7 94 20 152/90 100 01/17/20 06:49 Room Air AYALA DE LA CRUZ MD Jan 18, 2020 12:57
[2020-01-18] MEDS: OLANZapine ORAL DISINTEGRATING TAB 5MG PO PRN (19:46)
[2020-01-18] MEDS ORDERED: LORazepam 2 MG TAB PO ONE (21:45)
[2020-01-18] MEDS ORDERED: diphenhydrAMINE 50MG CAP PO ONE (21:45)
[2020-01-18] MEDS: traZODone 50 MG TAB PO PRN (23:13)
[2020-01-19] MEDS: DIVALPROEX 500MG *ER* TAB PO SCH ×2 (09:00→21:00)
[2020-01-19] MEDS: haloperidoL 5 MG TAB PO SCH ×2 (09:00→21:00)
[2020-01-19] MEDS: amLODIPine 5 MG TAB PO SCH (09:00)
[2020-01-19] MEDS: IBUPROFEN 800 MG TAB PO PRN (11:29)
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
[2020-01-19] MEDS: ACETAMINOPHEN TAB 650MG DOSE (2X325MG) PO PRN (18:59)
[2020-01-19] MEDS ORDERED: chlorproMAZINE 25 MG TABLET PO ONE (20:30)
[2020-01-19 21:00] VITALS: BP 125/66
[2020-01-19 21:30] VITALS: BP 143/67
--- NOTE | 2020-01-20 06:54 | IPNPDOC ---
Text Note Date of Service The patient was seen on 01/19/20. NOTE PSYCH CERTIFICATION FACE TO FACE: yes PHYSICIAN ASSESSMENT: The patient was threatening staff and not following verbal instructions. REASON FOR RESTRAINT: The patient was a danger to the staff. DE-ESCALATION INTERVENTIONS ATTEMPTED BEFORE USE OF RESTRAINTS: verbal redirection MECHANICAL AND/OR CHEMICAL] RESTRAINTS USED: mechanical LENGTH OF TIME ORDERED IN RESTRAINTS: 4 hours WHEN TO DISCONTINUE RESTRAINTS: When the patient is no longer a threat to to herself or others Post evaluation of restraint due in 24 hours. VS,Fishbone, I+O VS, Fishbone, I+O Vital Signs Date Time Temp Pulse Resp B/P (MAP) Pulse Ox O2 Delivery O2 Flow Rate FiO2 01/19/20 21:30 98.6 83 18 143/67 98 Room Air STEFANY CONLEY MD Jan 20, 2020 06:54
[2020-01-20] MEDS: DIVALPROEX 500MG *ER* TAB PO SCH ×2 (09:00→20:40)
[2020-01-20] MEDS: amLODIPine 5 MG TAB PO SCH (09:00)
[2020-01-20] MEDS: haloperidoL 5 MG TAB PO SCH ×2 (09:00→20:40)
--- NOTE | 2020-01-20 12:22 | MHPR ---
General Date: Jan 20, 2020 Time: 12:21 Post-Restraint Evaluation THE OUTCOME OF THE RESTRAINT: patient was able to return to control. EFFECTIVENESS OF THE RESTRAINT: Mechanical and/or chemical: [Positive]. ANY EVIDENCE THAT THE PATIENT WAS AFFECTED EMOTIONALLY: no ANY NEED FOR COUNSELING/ASSISTANCE: no CHANGES IN TREATMENT PLAN: will continue to advocate consistent behavioral plan RECOMMENDATIONS FOR FUTURE INCIDENTS: premedication earlier in agitation to perhaps avoid her needing to be restrained FELIX BUTCHER DO Jan 20, 2020 12:22
[2020-01-20] MEDS: IBUPROFEN 800 MG TAB PO PRN ×2 (12:40→13:25)
[2020-01-20 16:29] VITALS: BP 140/70
[2020-01-20] MEDS: ACETAMINOPHEN TAB 650MG DOSE (2X325MG) PO PRN (16:55)
[2020-01-20] MEDS: chlorproMAZINE 25 MG TABLET PO PRN (19:37)
[2020-01-20] MEDS: traZODone 50 MG TAB PO PRN (21:48)
[2020-01-21] MEDS: amLODIPine 5 MG TAB PO SCH (09:00)
[2020-01-21] MEDS: haloperidoL 5 MG TAB PO SCH ×2 (10:58→20:59)
[2020-01-21] MEDS: DIVALPROEX 500MG *ER* TAB PO SCH ×2 (10:58→20:59)
[2020-01-21] MEDS ORDERED: chlorproMAZINE 25 MG TABLET PO SCH ×2 (15:00→21:00)
[2020-01-21] MEDS: chlorproMAZINE 25 MG TABLET PO PRN (15:08)
[2020-01-21 16:32] VITALS: BP 130/67
--- NOTE | 2020-01-21 19:37 | IPNPDOC ---
Text Note Date of Service The patient was seen on 01/21/20. NOTE PSYCH CERTIFICATION FACE TO FACE: yes PHYSICIAN ASSESSMENT: The patient was fighting with other residents and swinging her wheel chair at staff members REASON FOR RESTRAINT: The patient was a danger to the staff. DE-ESCALATION INTERVENTIONS ATTEMPTED BEFORE USE OF RESTRAINTS: verbal redirection MECHANICAL AND/OR CHEMICAL] RESTRAINTS USED: mechanical LENGTH OF TIME ORDERED IN RESTRAINTS: 4 hours WHEN TO DISCONTINUE RESTRAINTS: When the patient is no longer a threat to to herself or others Post evaluation of restraint due in 24 hours. VS,Fishbone, I+O VS, Fishbone, I+O Vital Signs Date Time Temp Pulse Resp B/P (MAP) Pulse Ox O2 Delivery O2 Flow Rate FiO2 01/21/20 16:32 98.1 94 20 130/67 (88) 01/19/20 21:30 98 Room Air STEFANY CONLEY MD Jan 21, 2020 19:37
[2020-01-21] MEDS ORDERED: HALOPERIDOL 5MG/ML VIAL (J1630 PER 1) IM STA ×2 (19:42→22:01)
[2020-01-21 20:30] VITALS: BP 132/70
[2020-01-21 20:45] VITALS: BP 130/79
[2020-01-21] MEDS: chlorproMAZINE 25 MG TABLET PO SCH (20:59)
--- NOTE | 2020-01-21 22:07 | IPNPDOC ---
Text Note Date of Service The patient was seen on 01/21/20. NOTE TIME OF SERVICE 0958PM PSYCH CERTIFICATION FACE TO FACE: yes PHYSICIAN ASSESSMENT: The patient was using utensils to cut herself. REASON FOR RESTRAINT: The patient was a danger to herself DE-ESCALATION INTERVENTIONS ATTEMPTED BEFORE USE OF RESTRAINTS: verbal redirection MECHANICAL AND/OR CHEMICAL] RESTRAINTS USED: mechanical & chemical LENGTH OF TIME ORDERED IN RESTRAINTS: 4 hours WHEN TO DISCONTINUE RESTRAINTS: When the patient is no longer a threat to to herself or others Post evaluation of restraint due in 24 hours. VS,Fishbone, I+O VS, Fishbone, I+O Vital Signs Date Time Temp Pulse Resp B/P (MAP) Pulse Ox O2 Delivery O2 Flow Rate FiO2 01/21/20 20:45 80 14 130/79 01/21/20 16:32 98.1 01/19/20 21:30 98 Room Air STEFANY CONLEY MD Jan 21, 2020 22:07
[2020-01-22] MEDS: DIVALPROEX 500MG *ER* TAB PO SCH ×2 (08:34→21:00)
[2020-01-22] MEDS: amLODIPine 5 MG TAB PO SCH (08:35)
[2020-01-22] MEDS: haloperidoL 5 MG TAB PO SCH ×2 (08:35→21:00)
[2020-01-22] MEDS: chlorproMAZINE 25 MG TABLET PO SCH (19:36)
--- NOTE | 2020-01-22 19:55 | MHIPNPDOC ---
[facility] Progress Note Progress Note DATE OF SERVICE: 01/22/20 HISTORY: As per ED records: "Reason for Referral Pt was brought to the ED by [facility] after she contacted them stating she was suicidal with plan to OD on her psych medications. Pt was just discharged from [facility] 3 hours ago... Chief Complaint pt states, "I just want to be heard." Pt reports being discharged from [facility] earlier today and is "feeling overwhelmed with her life." States she continues to struggle with her Father not wanting a relationship with her any more and feels other family members are "disowning me as well." Pt states, "I just want to end it all." Pt has a long hx of [facility] hospitalization and ED visits. Apparently, she was supposed to be discharged from [facility] yesterday, however she requested her discharge be delayed "because I wasn't ready." She continues to voice SI with plan to OD". VITAL SIGNS: See below. NEW TEST RESULTS: See below CURRENT MEDICATIONS: See below. MENTAL STATUS EXAMINATION: Patient is a 19 year old female, who is alert, dressed in hospital clothes, disheveled, ambulating through the Unit in a wheelchair Speech: slurred, slow, normal tone and volume Language skills are intact. Thought processes including: linear but not necessarily coherent Thought content: She reports angry and anxious thoughts, reports depressed thoughts, denies passive/active suicidal ideation at this time Description of abnormal or psychotic thoughts: Denies bizarre and grandiose delusions. He denies TAV hallucinations, she is not responding to internal stimuli Judgment: poor. Insight: poor. Orientation: x 3. Recent and remote memory: intact. Attention span and concentration: good. Language: no abnormalities observed. Fund of knowledge: below average. Mood: angry,sad, depressed. Affect: congruent with mood, labile. DIAGNOSES: F33.9 Major depressive disorder, recurrent, unspecified F60.3 Borderline personality disorder F60.2 Antisocial personality disorder ASSESSMENT: she was angry this afternoon because she is not able to leave [facility], because she is not being discharged. However, when I attempt to discuss with her that doing things that keep putting her at risk, like trying to tie a strap from her mask around the neck ( last night) or injure herself with a fork is just going to delay her discharge or make it quite impossible because she is not safe. This evening the Nursing staff contacted me to let me know that she is throwing things at staff and other patients, she is being dangerous to others too and for that reason she had to receive Thorazine 150 mgs IM because she kept refusing to take it PO MANAGEMENT PLAN: Will continue with current treatment plan TIME SPENT: 25 minutes. Vital Signs Vital Signs Date Time Temp Pulse Resp B/P (MAP) Pulse Ox O2 Delivery O2 Flow Rate FiO2 01/21/20 20:45 80 14 130/79 01/21/20 16:32 98.1 01/19/20 21:30 98 Room Air Current Medications Current Medications Medications (Trade) Dose Ordered Sig/Brielle Route PRN Reason Start Time Stop Time Status Last Admin Dose Admin Acetaminophen (Tylenol Tab) 650 mg Q6HP PRN PO HEADACHE or DISCOMFORT 01/10/20 20:45 01/20/20 16:55 Al Hydrox/Mg Hydrox/Simethicone (Mylanta) 30 ml Q4HP PRN PO HEARTBURN/INDIGESTION 01/10/20 20:45 01/12/20 23:51 Amlodipine Besylate (Norvasc) 5 mg DAILY PO 01/18/20 09:00 Chlorpromazine HCl (Thorazine) 100 mg STAT STAT IM 01/17/20 16:01 01/17/20 16:05 DC 01/17/20 16:08 Chlorpromazine HCl (Thorazine) 150 mg BID PO 01/21/20 21:00 01/21/20 15:00 DC Chlorpromazine HCl (Thorazine) 150 mg Q3H PRN PO AGITATION 01/20/20 19:30 01/21/20 15:08 Chlorpromazine HCl (Thorazine) 150 mg QHS PO 01/21/20 15:00 01/21/20 15:06 DC Chlorpromazine HCl (Thorazine) 150 mg QHS PO 01/21/20 21:00 01/21/20 20:59 Diphenhydramine HCl (Benadryl) 50 mg STAT STAT IM 01/12/20 20:07 01/12/20 20:09 DC 01/12/20 20:16 Diphenhydramine HCl (Benadryl) 50 mg STAT STAT IM 01/15/20 01:13 01/15/20 01:15 DC 01/15/20 01:18 Divalproex Sodium (Depakote Er) 500 mg BID PO 01/12/20 09:00 01/21/20 20:59 Divalproex Sodium (Depakote) 250 mg TID PO 01/11/20 16:00 01/12/20 13:52 DC 01/11/20 20:22 Haloperidol (Haldol) 5 mg BID PO 01/17/20 09:00 01/21/20 10:58 Haloperidol (Haldol) 7.5 mg STAT STAT IM 01/16/20 21:58 01/16/20 22:00 DC 01/16/20 22:06 Haloperidol (Haldol) 10 mg STAT STAT IM 01/21/20 19:42 01/21/20 19:44 DC 01/21/20 19:48 Haloperidol (Haldol) 10 mg STAT STAT IM 01/21/20 22:01 01/21/20 22:03 DC 01/21/20 22:08 Haloperidol (Haldol) 10 mg STAT STAT IM 01/12/20 20:07 01/12/20 20:09 DC 01/12/20 20:16 Haloperidol (Haldol) 10 mg STAT STAT IM 01/15/20 01:13 01/15/20 01:14 DC 01/15/20 01:18 Home Med (Med Rec Complete!) ASDIRECTED XX 01/10/20 19:00 01/10/20 18:51 DC Ibuprofen (Advil) 800 mg Q6HP PRN PO MODERATE PAIN (PS 5-7) 01/15/20 20:45 01/20/20 13:25 Lorazepam (Ativan) 1 mg STAT STAT IM 01/16/20 21:58 01/16/20 22:00 DC 01/16/20 22:06 Lorazepam (Ativan) 2 mg STAT STAT IM 01/12/20 20:07 01/12/20 20:09 DC 01/12/20 20:16 Lorazepam (Ativan) 2 mg STAT STAT IM 01/15/20 01:13 01/15/20 01:15 DC 01/15/20 01:19 Lorazepam (Ativan) 2 mg STAT STAT PO 01/10/20 19:38 01/10/20 19:39 DC 01/10/20 19:49 Magnesium Hydroxide (Milk Of Magnesia) 30 ml DAILYPRN PRN PO CONSTIPATION 01/10/20 20:45 Olanzapine (ZyPREXA ZYDIS) 5 mg Q4HP PRN PO AGITATION 01/10/20 20:45 01/21/20 14:58 DC 01/18/20 19:46 Olanzapine (ZyPREXA) 5 mg TID PO 01/10/20 21:00 01/11/20 16:31 DC 01/10/20 22:33 Trazodone HCl (Desyrel) 50 mg QHSP PRN PO INSOMNIA 01/10/20 20:45 01/20/20 21:48 Allergies Coded Allergies: haloperidol (Verified Adverse Reaction, Intermediate, LOCKJAW, 01/03/20) Has required & received this med many time without EPS noted risperidone (Verified Adverse Reaction, Mild, PSORIASIS, 11/26/19) DAVONTE OLIVEROS MD Jan 22, 2020 17:29
[2020-01-22] MEDS ORDERED: chlorproMAZINE INJ 50MG/2ML AMP (J3230) IM ONE (20:00)
[2020-01-22] MEDS ORDERED: diphenhydrAMINE 50MG/ML VIAL (J1200) IM ONE (21:26)
[2020-01-22] MEDS ORDERED: LORazepam 2 MG/ML VIAL IM ONE (21:26)
[2020-01-23] MEDS: amLODIPine 5 MG TAB PO SCH (09:00)
[2020-01-23] MEDS: haloperidoL 5 MG TAB PO SCH ×2 (09:00→21:00)
[2020-01-23] MEDS: DIVALPROEX 500MG *ER* TAB PO SCH ×2 (09:00→21:00)
[2020-01-23] MEDS: ACETAMINOPHEN TAB 650MG DOSE (2X325MG) PO PRN (16:28)
[2020-01-23] MEDS ORDERED: HALOPERIDOL 5MG/ML VIAL (J1630 PER 1) IM STA ×2 (19:38→20:13)
[2020-01-23] MEDS ORDERED: diphenhydrAMINE 50MG/ML VIAL (J1200) IM STA ×2 (19:38→20:13)
[2020-01-23] MEDS ORDERED: LORazepam 2 MG/ML VIAL IM STA ×2 (19:38→20:13)
--- NOTE | 2020-01-23 19:40 | MHIPNPDOC ---
[facility] Progress Note Progress Note DATE OF SERVICE: 01/23/20 HISTORY: As per ED records: "Reason for Referral Pt was brought to the ED by [facility] after she contacted them stating she was suicidal with plan to OD on her psych medications. Pt was just discharged from [facility] 3 hours ago... Chief Complaint pt states, "I just want to be heard." Pt reports being discharged from [facility] earlier today and is "feeling overwhelmed with her life." States she continues to struggle with her Father not wanting a relationship with her any more and feels other family members are "disowning me as well." Pt states, "I just want to end it all." Pt has a long hx of [facility] hospitalization and ED visits. Apparently, she was supposed to be discharged from [facility] yesterday, however she requested her discharge be delayed "because I wasn't ready." She continues to voice SI with plan to OD". VITAL SIGNS: See below. NEW TEST RESULTS: See below CURRENT MEDICATIONS: See below. MENTAL STATUS EXAMINATION: Patient is a 19 year old female, who is alert, dressed in hospital clothes, disheveled, ambulating through the Unit in a wheelchair Speech: slow, normal tone and volume, clear, spontaneous Language skills are intact. Thought processes including: linear but not necessarily coherent Thought content: Positive for cognitive distortions, anxious and depressive t houghts. She denies passive/active suicidal ideation at this time Description of abnormal or psychotic thoughts: Denies thought delusions, denies TAV hallucinations, she is not responding to internal stimuli. Judgment: poor. Insight: poor. Orientation: x 3. Recent and remote memory: intact. Attention span and concentration: good at times Language: no abnormalities observed. Fund of knowledge: below average. Mood: sad. Affect: congruent with mood, labile. DIAGNOSES: F33.9 Major depressive disorder, recurrent, unspecified F60.3 Borderline personality disorder F60.2 Antisocial personality disorder ASSESSMENT: She is less angry, less irritable today. she says she would like to be w/o a sitter and I explained that unfortunately due to her most recent behaviors like for example: Jumping on beds and falling injuring her foot, trying to tie a mask strap around her neck, trying to swallow a [employer] cap, injuring her arm with a fork only proves that she is unsafe to be left alone. She says she doesn't like to take Thorazine 150 mgs at night but I asked her if less amount of medication would calm her down. She said yes but I really doubt if because last night she still required an extra dose of Ativan and 50 mgs of Benadryl to calm down. Her insight, judgment and impusive behavior are still poor. Her mood is still labile, fluctuating, unstable. MANAGEMENT PLAN: Will continue with current treatment plan TIME SPENT: 25 minutes. Vital Signs Vital Signs Date Time Temp Pulse Resp B/P (MAP) Pulse Ox O2 Delivery O2 Flow Rate FiO2 01/21/20 20:45 80 14 130/79 01/21/20 16:32 98.1 01/19/20 21:30 98 Room Air Current Medications Current Medications Medications (Trade) Dose Ordered Sig/Brielle Route PRN Reason Start Time Stop Time Status Last Admin Dose Admin Acetaminophen (Tylenol Tab) 650 mg Q6HP PRN PO HEADACHE or DISCOMFORT 01/10/20 20:45 01/23/20 16:28 Al Hydrox/Mg Hydrox/Simethicone (Mylanta) 30 ml Q4HP PRN PO HEARTBURN/INDIGESTION 01/10/20 20:45 01/12/20 23:51 Amlodipine Besylate (Norvasc) 5 mg DAILY PO 01/18/20 09:00 Chlorpromazine HCl (Thorazine) 100 mg STAT STAT IM 01/17/20 16:01 01/17/20 16:05 DC 01/17/20 16:08 Chlorpromazine HCl (Thorazine) 150 mg BID PO 01/21/20 21:00 01/21/20 15:00 DC Chlorpromazine HCl (Thorazine) 150 mg Q3H PRN PO AGITATION 01/20/20 19:30 01/21/20 15:08 Chlorpromazine HCl (Thorazine) 150 mg QHS PO 01/21/20 15:00 01/21/20 15:06 DC Chlorpromazine HCl (Thorazine) 150 mg QHS PO 01/21/20 21:00 01/22/20 19:36 Diphenhydramine HCl (Benadryl) 50 mg STAT STAT IM 01/12/20 20:07 01/12/20 20:09 DC 01/12/20 20:16 Diphenhydramine HCl (Benadryl) 50 mg STAT STAT IM 01/15/20 01:13 01/15/20 01:15 DC 01/15/20 01:18 Divalproex Sodium (Depakote Er) 500 mg BID PO 01/12/20 09:00 01/21/20 20:59 Divalproex Sodium (Depakote) 250 mg TID PO 01/11/20 16:00 01/12/20 13:52 DC 01/11/20 20:22 Haloperidol (Haldol) 5 mg BID PO 01/17/20 09:00 01/21/20 10:58 Haloperidol (Haldol) 7.5 mg STAT STAT IM 01/16/20 21:58 01/16/20 22:00 DC 01/16/20 22:06 Haloperidol (Haldol) 10 mg STAT STAT IM 01/21/20 19:42 01/21/20 19:44 DC 01/21/20 19:48 Haloperidol (Haldol) 10 mg STAT STAT IM 01/21/20 22:01 01/21/20 22:03 DC 01/21/20 22:08 Haloperidol (Haldol) 10 mg STAT STAT IM 01/12/20 20:07 01/12/20 20:09 DC 01/12/20 20:16 Haloperidol (Haldol) 10 mg STAT STAT IM 01/15/20 01:13 01/15/20 01:14 DC 01/15/20 01:18 Home Med (Med Rec Complete!) ASDIRECTED XX 01/10/20 19:00 01/10/20 18:51 DC Ibuprofen (Advil) 800 mg Q6HP PRN PO MODERATE PAIN (PS 5-7) 01/15/20 20:45 01/20/20 13:25 Lorazepam (Ativan) 1 mg STAT STAT IM 01/16/20 21:58 01/16/20 22:00 DC 01/16/20 22:06 Lorazepam (Ativan) 2 mg STAT STAT IM 01/12/20 20:07 01/12/20 20:09 DC 01/12/20 20:16 Lorazepam (Ativan) 2 mg STAT STAT IM 01/15/20 01:13 01/15/20 01:15 DC 01/15/20 01:19 Lorazepam (Ativan) 2 mg STAT STAT PO 01/10/20 19:38 01/10/20 19:39 DC 01/10/20 19:49 Magnesium Hydroxide (Milk Of Magnesia) 30 ml DAILYPRN PRN PO CONSTIPATION 01/10/20 20:45 Olanzapine (ZyPREXA ZYDIS) 5 mg Q4HP PRN PO AGITATION 01/10/20 20:45 01/21/20 14:58 DC 01/18/20 19:46 Olanzapine (ZyPREXA) 5 mg TID PO 01/10/20 21:00 01/11/20 16:31 DC 01/10/20 22:33 Trazodone HCl (Desyrel) 50 mg QHSP PRN PO INSOMNIA 01/10/20 20:45 01/20/20 21:48 Allergies Coded Allergies: haloperidol (Verified Adverse Reaction, Intermediate, LOCKJAW, 01/03/20) Has required & received this med many time without EPS noted risperidone (Verified Adverse Reaction, Mild, PSORIASIS, 11/26/19) DAVONTE OLIVEROS MD Jan 23, 2020 19:40
[2020-01-23] MEDS: chlorproMAZINE 25 MG TABLET PO SCH (21:00)
--- NOTE | 2020-01-23 21:06 | IPNPDOC ---
Text Note Date of Service The patient was seen on 01/23/20. NOTE Code 25: Code 25 was called at approximately 7:40 this evening. I come down to evaluate patient and she was sitting on the floor and staff was talking her into sitting and to a wheelchair. After discussion, patient reported that she would be compl iant with taking medications and avoiding restraints. She willingly sat into wheelchair and was being wheeled to medication room. Psychiatry has provided medications; haloperidol 5 mg IM, diphenhydramine 50 mg IM, and lorazepam 2 mg IM. VS,Fishbone, I+O VS, Fishbone, I+O Vital Signs Date Time Temp Pulse Resp B/P (MAP) Pulse Ox O2 Delivery O2 Flow Rate FiO2 01/21/20 20:45 80 14 130/79 01/21/20 16:32 98.1 01/19/20 21:30 98 Room Air DANI HART MD Jan 23, 2020 21:06
[2020-01-23] MEDS ORDERED: chlorproMAZINE INJ 50MG/2ML AMP (J3230) IM STA (21:11)
[2020-01-24] MEDS: DIVALPROEX 500MG *ER* TAB PO SCH ×2 (09:00→21:44)
[2020-01-24] MEDS: amLODIPine 5 MG TAB PO SCH (09:00)
[2020-01-24] MEDS: haloperidoL 5 MG TAB PO SCH ×2 (09:00→21:44)
[2020-01-24 17:18] VITALS: BP 149/79
--- NOTE | 2020-01-24 21:08 | MHIPNPDOC ---
[facility] Progress Note Progress Note DATE OF SERVICE: 01/24/20 HISTORY: As per ED records: "Reason for Referral Pt was brought to the ED by [facility] after she contacted them stating she was suicidal with plan to OD on her psych medications. Pt was just discharged from [facility] 3 hours ago... Chief Complaint pt states, "I just want to be heard." Pt reports being discharged from [facility] earlier today and is "feeling overwhelmed with her life." States she continues to struggle with her Father not wanting a relationship with her any more and feels other family members are "disowning me as well." Pt states, "I just want to end it all." Pt has a long hx of [facility] hospitalization and ED visits. Apparently, she was supposed to be discharged from [facility] yesterday, however she requested her discharge be delayed "because I wasn't ready." She continues to voice SI with plan to OD". VITAL SIGNS: See below. NEW TEST RESULTS: See below CURRENT MEDICATIONS: See below. MENTAL STATUS EXAMINATION: Patient is a 19 year old female, who is alert, dressed in hospital clothes, disheveled, ambulating through the Unit in a wheelchair Speech: slow, normal tone and volume, clear, spontaneous Language skills are intact. Thought processes including: linear Thought content: Positive for depressive and angry thoughts. She denies passive/active suicidal ideation at this time Description of abnormal or psychotic thoughts: Denies thought delusions, denies TAV hallucinations, she is not responding to internal stimuli. Judgment: poor. Insight: poor. Orientation: x 3. Recent and remote memory: intact. Attention span and concentration: good at times, depending on the subject. If she is interested in a conversation she will be able to focus Language: no abnormalities observed. Fund of knowledge: below average. Mood: sad, mildly irritable. Affect: congruent with mood, labile. DIAGNOSES: F33.9 Major depressive disorder, recurrent, unspecified F60.3 Borderline personality disorder F60.2 Antisocial personality disorder ASSESSMENT: She told me today that she has been trying to apply her coping skills. She has continued to exhibit behavioral problems in the unit even when she has been told multiple times that if she doesn't want to go long-term she should try to modify her behavior but she continues to engage in impulsive, aggressive and dangerous acts against herself and against other people. Her insight and judgment are poor MANAGEMENT PLAN: Will continue with current treatment plan TIME SPENT: 25 minutes. Vital Signs Vital Signs Date Time Temp Pulse Resp B/P (MAP) Pulse Ox O2 Delivery O2 Flow Rate FiO2 01/24/20 17:18 97.4 93 18 149/79 (102) 01/19/20 21:30 98 Room Air Current Medications Current Medications Medications (Trade) Dose Ordered Sig/Brielle Route PRN Reason Start Time Stop Time Status Last Admin Dose Admin Acetaminophen (Tylenol Tab) 650 mg Q6HP PRN PO HEADACHE or DISCOMFORT 01/10/20 20:45 01/23/20 16:28 Al Hydrox/Mg Hydrox/Simethicone (Mylanta) 30 ml Q4HP PRN PO HEARTBURN/INDIGESTION 01/10/20 20:45 01/12/20 23:51 Amlodipine Besylate (Norvasc) 5 mg DAILY PO 01/18/20 09:00 Chlorpromazine HCl (Thorazine) 100 mg STAT STAT IM 01/17/20 16:01 01/17/20 16:05 DC 01/17/20 16:08 Chlorpromazine HCl (Thorazine) 150 mg BID PO 01/21/20 21:00 01/21/20 15:00 DC Chlorpromazine HCl (Thorazine) 150 mg Q3H PRN PO AGITATION 01/20/20 19:30 01/21/20 15:08 Chlorpromazine HCl (Thorazine) 150 mg QHS PO 01/21/20 15:00 01/21/20 15:06 DC Chlorpromazine HCl (Thorazine) 150 mg QHS PO 01/21/20 21:00 01/22/20 19:36 Chlorpromazine HCl (Thorazine) 150 mg STAT STAT IM 01/23/20 21:11 01/23/20 21:13 DC 01/23/20 21:36 Diphenhydramine HCl (Benadryl) 50 mg STAT STAT IM 01/23/20 19:38 01/23/20 19:41 DC 01/23/20 19:50 Diphenhydramine HCl (Benadryl) 50 mg STAT STAT IM 01/23/20 20:13 01/23/20 20:17 DC 01/23/20 20:29 Diphenhydramine HCl (Benadryl) 50 mg STAT STAT IM 01/12/20 20:07 01/12/20 20:09 DC 01/12/20 20:16 Diphenhydramine HCl (Benadryl) 50 mg STAT STAT IM 01/15/20 01:13 01/15/20 01:15 DC 01/15/20 01:18 Divalproex Sodium (Depakote Er) 500 mg BID PO 01/12/20 09:00 01/21/20 20:59 Divalproex Sodium (Depakote) 250 mg TID PO 01/11/20 16:00 01/12/20 13:52 DC 01/11/20 20:22 Haloperidol (Haldol) 5 mg BID PO 01/17/20 09:00 01/21/20 10:58 Haloperidol (Haldol) 5 mg STAT STAT IM 01/23/20 20:13 01/23/20 20:17 DC 01/23/20 20:45 Haloperidol (Haldol) 7.5 mg STAT STAT IM 01/16/20 21:58 01/16/20 22:00 DC 01/16/20 22:06 Haloperidol (Haldol) 10 mg STAT STAT IM 01/21/20 19:42 01/21/20 19:44 DC 01/21/20 19:48 Haloperidol (Haldol) 10 mg STAT STAT IM 01/21/20 22:01 01/21/20 22:03 DC 01/21/20 22:08 Haloperidol (Haldol) 10 mg STAT STAT IM 01/23/20 19:38 01/23/20 19:41 DC 01/23/20 19:49 Haloperidol (Haldol) 10 mg STAT STAT IM 01/12/20 20:07 01/12/20 20:09 DC 01/12/20 20:16 Haloperidol (Haldol) 10 mg STAT STAT IM 01/15/20 01:13 01/15/20 01:14 DC 01/15/20 01:18 Home Med (Med Rec Complete!) ASDIRECTED XX 01/10/20 19:00 01/10/20 18:51 DC Ibuprofen (Advil) 800 mg Q6HP PRN PO MODERATE PAIN (PS 5-7) 01/15/20 20:45 01/20/20 13:25 Lorazepam (Ativan) 1 mg STAT STAT IM 01/16/20 21:58 01/16/20 22:00 DC 01/16/20 22:06 Lorazepam (Ativan) 2 mg STAT STAT IM 01/23/20 19:38 01/23/20 19:41 DC 01/23/20 19:50 Lorazepam (Ativan) 2 mg STAT STAT IM 01/23/20 20:13 01/23/20 20:17 DC 01/23/20 20:31 Lorazepam (Ativan) 2 mg STAT STAT IM 01/12/20 20:07 01/12/20 20:09 DC 01/12/20 20:16 Lorazepam (Ativan) 2 mg STAT STAT IM 01/15/20 01:13 01/15/20 01:15 DC 01/15/20 01:19 Lorazepam (Ativan) 2 mg STAT STAT PO 01/10/20 19:38 01/10/20 19:39 DC 01/10/20 19:49 Magnesium Hydroxide (Milk Of Magnesia) 30 ml DAILYPRN PRN PO CONSTIPATION 01/10/20 20:45 Olanzapine (ZyPREXA ZYDIS) 5 mg Q4HP PRN PO AGITATION 01/10/20 20:45 01/21/20 14:58 DC 01/18/20 19:46 Olanzapine (ZyPREXA) 5 mg TID PO 01/10/20 21:00 01/11/20 16:31 DC 01/10/20 22:33 Trazodone HCl (Desyrel) 50 mg QHSP PRN PO INSOMNIA 01/10/20 20:45 01/20/20 21:48 Allergies Coded Allergies: haloperidol (Verified Adverse Reaction, Intermediate, LOCKJAW, 01/03/20) Has required & received this med many time without EPS noted risperidone (Verified Adverse Reaction, Mild, PSORIASIS, 11/26/19) DAVONTE OLIVEROS MD Jan 24, 2020 21:08
[2020-01-24] MEDS: chlorproMAZINE 25 MG TABLET PO SCH (21:44)
[2020-01-24] MEDS ORDERED: LORazepam 2 MG/ML VIAL IM STA (21:54)
--- NOTE | 2020-01-24 21:59 | IPNPDOC ---
Text Note Date of Service The patient was seen on 01/24/20. NOTE Code 25: Code 25 was called at approximately 9:45PM this evening. I came down to evaluate patient and she was in a wheelchair and about to be moved into bed with restraints. Patient was agitated but got into bed and was put into restraints by staff. Orders for restraints and medications have been provided by psychiatry. VS,Fishbone, I+O VS, Fishbone, I+O Vital Signs Date Time Temp Pulse Resp B/P (MAP) Pulse Ox O2 Delivery O2 Flow Rate FiO2 01/24/20 17:18 97.4 93 18 149/79 (102) 01/19/20 21:30 98 Room Air DANI HART MD Jan 24, 2020 21:59
[2020-01-24] MEDS ORDERED: HALOPERIDOL 5MG/ML VIAL (J1630 PER 1) IM STA (22:40)
[2020-01-25] MEDS: haloperidoL 5 MG TAB PO SCH ×2 (09:00→21:20)
[2020-01-25] MEDS: DIVALPROEX 500MG *ER* TAB PO SCH ×3 (09:00→23:05)
[2020-01-25] MEDS: amLODIPine 5 MG TAB PO SCH (09:00)
[2020-01-25] MEDS ORDERED: TUBERCULIN PPD 5 UNITS/0.1 ML ID ONE (15:30)
[2020-01-25 18:28] VITALS: BP 153/67
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
[2020-01-25] MEDS: DIVALPROEX 250MG *ER* TAB PO SCH (21:00)
[2020-01-25] MEDS: chlorproMAZINE 25 MG TABLET PO SCH ×2 (21:00→23:09)
[2020-01-26] MEDS: traZODone 50 MG TAB PO PRN (00:37)
[2020-01-26] MEDS: amLODIPine 5 MG TAB PO SCH (08:20)
[2020-01-26] MEDS: haloperidoL 5 MG TAB PO SCH ×3 (08:24→21:32)
[2020-01-26 18:07] VITALS: BP 135/83
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
[2020-01-26] MEDS: DIVALPROEX 500MG *ER* TAB PO SCH (21:32)
[2020-01-26] MEDS: DIVALPROEX 250MG *ER* TAB PO SCH (21:32)
[2020-01-26] MEDS: chlorproMAZINE 25 MG TABLET PO SCH (21:42)
[2020-01-27] MEDS ORDERED: diphenhydrAMINE 50MG/ML VIAL (J1200) IM ONE (00:30)
[2020-01-27] MEDS ORDERED: chlorproMAZINE INJ 50MG/2ML AMP (J3230) IM ONE (00:30)
[2020-01-27] MEDS: haloperidoL 5 MG TAB PO SCH ×2 (09:00→21:00)
[2020-01-27] MEDS: DIVALPROEX 500MG *ER* TAB PO SCH ×3 (09:00→22:28)
[2020-01-27] MEDS: amLODIPine 5 MG TAB PO SCH (09:00)
[2020-01-27 15:42] VITALS: BP 163/64
[2020-01-27] MEDS ORDERED: PPD DOCUMENTATION ENTRY MISC XX ONE (15:45)
[2020-01-27] MEDS ORDERED: HALOPERIDOL 5MG/ML VIAL (J1630 PER 1) IM STA (19:42)
[2020-01-27] MEDS ORDERED: LORazepam 2 MG/ML VIAL IM STA (19:42)
[2020-01-27] MEDS ORDERED: diphenhydrAMINE 50MG/ML VIAL (J1200) IM STA (19:42)
[2020-01-27 21:00] VITALS: BP 138/79
[2020-01-27] MEDS: DIVALPROEX 250MG *ER* TAB PO SCH ×2 (21:00→22:28)
[2020-01-27] MEDS: chlorproMAZINE 25 MG TABLET PO SCH (22:29)
[2020-01-28] MEDS: DIVALPROEX 500MG *ER* TAB PO SCH ×2 (08:56→21:00)
[2020-01-28] MEDS: haloperidoL 5 MG TAB PO SCH ×2 (08:57→21:00)
[2020-01-28] MEDS: amLODIPine 5 MG TAB PO SCH (08:57)
[2020-01-28 16:23] VITALS: BP 147/63
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
[2020-01-28] MEDS: chlorproMAZINE 25 MG TABLET PO SCH (21:00)
[2020-01-28] MEDS: DIVALPROEX 250MG *ER* TAB PO SCH (21:00)
[2020-01-28] MEDS ORDERED: diphenhydrAMINE 50MG/ML VIAL (J1200) IM STA (21:23)
[2020-01-28] MEDS ORDERED: LORazepam 2 MG/ML VIAL IM STA (21:23)
[2020-01-28] MEDS ORDERED: HALOPERIDOL 5MG/ML VIAL (J1630 PER 1) IM STA (21:23)
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
[2020-01-29] MEDS: amLODIPine 5 MG TAB PO SCH (09:00)
[2020-01-29] MEDS: haloperidoL 5 MG TAB PO SCH ×2 (09:00→20:30)
[2020-01-29] MEDS: DIVALPROEX 500MG *ER* TAB PO SCH ×2 (09:00→20:30)
--- NOTE | 2020-01-29 09:10 | MHPR ---
General Date: Jan 29, 2020 Time: 09:09 Post-Restraint Evaluation THE OUTCOME OF THE RESTRAINT: positive EFFECTIVENESS OF THE RESTRAINT: Mechanical and/or chemical: [Positive]. ANY EVIDENCE THAT THE PATIENT WAS AFFECTED EMOTIONALLY: no ANY NEED FOR COUNSELING/ASSISTANCE: no CHANGES IN TREATMENT PLAN: increase meds RECOMMENDATIONS FOR FUTURE INCIDENTS: n/a FELIX BUTCHER DO Jan 29, 2020 09:10
[2020-01-29] MEDS: MAALOX 30 ML SUSP *UDC PO PRN ×2 (14:50→22:47)
[2020-01-29 16:11] VITALS: BP 137/75
[2020-01-29 17:18] VITALS: BP 122/76
[2020-01-29] MEDS: DIVALPROEX 250MG *ER* TAB PO SCH (20:30)
[2020-01-29] MEDS: chlorproMAZINE 25 MG TABLET PO SCH (20:31)
--- NOTE | 2020-01-30 07:54 | MHIPNPDOC ---
[facility] Progress Note Progress Note DATE OF SERVICE: 01/30/20 HPI: Yareli presents today for status report after changing medication. After taking the medication, she did not code. Yareli does not want to use the whee lchair anymore, but wants to start walking. Additionally, an active area of checking is seeking placement for Yareli. MEDICATIONS: She is doing better on the medication Thorazine, however she does not notice anything different. Objective Behavior: Unengaged. Generally unmotivated. Talks very little. Judgement: Poor judgement. Insight: Poor insight. Assessment F33.9 Major depressive disorder, recurrent, unspecified F60.2 Antisocial personality disorder Plan Continue to seek placement, however, she is still behaviorally problematic. Continue Thorazine 150 mg, twice a day as it appears to have some benefits since the patient did not code. Increase dosage of Thorazine as she tolerates it. Vital Signs Vital Signs Date Time Temp Pulse Resp B/P (MAP) Pulse Ox O2 Delivery O2 Flow Rate FiO2 01/29/20 17:18 102 16 122/76 (91) 01/29/20 16:11 97.3 01/27/20 21:00 98 Room Air Current Medications Current Medications Medications (Trade) Dose Ordered Sig/Brielle Route PRN Reason Start Time Stop Time Status Last Admin Dose Admin Acetaminophen (Tylenol Tab) 650 mg Q6HP PRN PO HEADACHE or DISCOMFORT 01/10/20 20:45 01/23/20 16:28 Al Hydrox/Mg Hydrox/Simethicone (Mylanta) 30 ml Q4HP PRN PO HEARTBURN/INDIGESTION 01/10/20 20:45 01/29/20 22:47 Amlodipine Besylate (Norvasc) 5 mg DAILY PO 01/18/20 09:00 Chlorpromazine HCl (Thorazine) 100 mg STAT STAT IM 01/17/20 16:01 01/17/20 16:05 DC 01/17/20 16:08 Chlorpromazine HCl (Thorazine) 150 mg BID PO 01/21/20 21:00 01/21/20 15:00 DC Chlorpromazine HCl (Thorazine) 150 mg BID PO 01/29/20 21:00 01/29/20 20:31 Chlorpromazine HCl (Thorazine) 150 mg Q3H PRN PO AGITATION 01/20/20 19:30 01/21/20 15:08 Chlorpromazine HCl (Thorazine) 150 mg QHS PO 01/21/20 15:00 01/21/20 15:06 DC Chlorpromazine HCl (Thorazine) 150 mg QHS PO 01/21/20 21:00 01/29/20 09:11 DC 01/27/20 22:29 Chlorpromazine HCl (Thorazine) 150 mg STAT STAT IM 01/23/20 21:11 01/23/20 21:13 DC 01/23/20 21:36 Diphenhydramine HCl (Benadryl) 50 mg STAT STAT IM 01/23/20 19:38 01/23/20 19:41 DC 01/23/20 19:50 Diphenhydramine HCl (Benadryl) 50 mg STAT STAT IM 01/23/20 20:13 01/23/20 20:17 DC 01/23/20 20:29 Diphenhydramine HCl (Benadryl) 50 mg STAT STAT IM 01/27/20 19:42 01/27/20 19:45 DC 01/27/20 19:55 Diphenhydramine HCl (Benadryl) 50 mg STAT STAT IM 01/28/20 21:23 01/28/20 21:38 DC 01/28/20 21:41 Diphenhydramine HCl (Benadryl) 50 mg STAT STAT IM 01/12/20 20:07 01/12/20 20:09 DC 01/12/20 20:16 Diphenhydramine HCl (Benadryl) 50 mg STAT STAT IM 01/15/20 01:13 01/15/20 01:15 DC 01/15/20 01:18 Divalproex Sodium (Depakote Er) 250 mg QHS PO 01/25/20 21:00 01/29/20 20:30 Divalproex Sodium (Depakote Er) 500 mg BID PO 01/12/20 09:00 01/29/20 20:30 Divalproex Sodium (Depakote) 250 mg TID PO 01/11/20 16:00 01/12/20 13:52 DC 01/11/20 20:22 Haloperidol (Haldol) 5 mg BID PO 01/17/20 09:00 01/29/20 20:30 Haloperidol (Haldol) 5 mg STAT STAT IM 01/23/20 20:13 01/23/20 20:17 DC 01/23/20 20:45 Haloperidol (Haldol) 5 mg STAT STAT IM 01/24/20 22:40 01/24/20 22:42 DC 01/24/20 22:45 Haloperidol (Haldol) 7.5 mg STAT STAT IM 01/16/20 21:58 01/16/20 22:00 DC 01/16/20 22:06 Haloperidol (Haldol) 10 mg STAT STAT IM 01/21/20 19:42 01/21/20 19:44 DC 01/21/20 19:48 Haloperidol (Haldol) 10 mg STAT STAT IM 01/21/20 22:01 01/21/20 22:03 DC 01/21/20 22:08 Haloperidol (Haldol) 10 mg STAT STAT IM 01/23/20 19:38 01/23/20 19:41 DC 01/23/20 19:49 Haloperidol (Haldol) 10 mg STAT STAT IM 01/27/20 19:42 01/27/20 19:45 DC 01/27/20 19:55 Haloperidol (Haldol) 10 mg STAT STAT IM 01/28/20 21:23 01/28/20 21:38 DC 01/28/20 21:42 Haloperidol (Haldol) 10 mg STAT STAT IM 01/12/20 20:07 01/12/20 20:09 DC 01/12/20 20:16 Haloperidol (Haldol) 10 mg STAT STAT IM 01/15/20 01:13 01/15/20 01:14 DC 01/15/20 01:18 Home Med (Med Rec Complete!) ASDIRECTED XX 01/10/20 19:00 01/10/20 18:51 DC Ibuprofen (Advil) 800 mg Q6HP PRN PO MODERATE PAIN (PS 5-7) 01/15/20 20:45 01/20/20 13:25 Lorazepam (Ativan) 1 mg STAT STAT IM 01/16/20 21:58 01/16/20 22:00 DC 01/16/20 22:06 Lorazepam (Ativan) 2 mg STAT STAT IM 01/23/20 19:38 01/23/20 19:41 DC 01/23/20 19:50 Lorazepam (Ativan) 2 mg STAT STAT IM 01/23/20 20:13 01/23/20 20:17 DC 01/23/20 20:31 Lorazepam (Ativan) 2 mg STAT STAT IM 01/24/20 21:54 01/24/20 21:56 DC 01/24/20 21:58 Lorazepam (Ativan) 2 mg STAT STAT IM 01/27/20 19:42 01/27/20 19:45 DC 01/27/20 19:55 Lorazepam (Ativan) 2 mg STAT STAT IM 01/28/20 21:23 01/28/20 21:38 DC 01/28/20 21:41 Lorazepam (Ativan) 2 mg STAT STAT IM 01/12/20 20:07 01/12/20 20:09 DC 01/12/20 20:16 Lorazepam (Ativan) 2 mg STAT STAT IM 01/15/20 01:13 01/15/20 01:15 DC 01/15/20 01:19 Lorazepam (Ativan) 2 mg STAT STAT PO 01/10/20 19:38 01/10/20 19:39 DC 01/10/20 19:49 Magnesium Hydroxide (Milk Of Magnesia) 30 ml DAILYPRN PRN PO CONSTIPATION 01/10/20 20:45 Olanzapine (ZyPREXA ZYDIS) 5 mg Q4HP PRN PO AGITATION 01/10/20 20:45 01/21/20 14:58 DC 01/18/20 19:46 Olanzapine (ZyPREXA) 5 mg TID PO 01/10/20 21:00 01/11/20 16:31 DC 01/10/20 22:33 Trazodone HCl (Desyrel) 50 mg QHSP PRN PO INSOMNIA 01/10/20 20:45 01/26/20 00:37 Allergies Coded Allergies: haloperidol (Verified Adverse Reaction, Intermediate, LOCKJAW, 01/03/20) Has required & received this med many time without EPS noted risperidone (Verified Adverse Reaction, Mild, PSORIASIS, 11/26/19) FELIX BUTCHER DO Jan 30, 2020 07:54
[2020-01-30] MEDS: haloperidoL 5 MG TAB PO SCH ×2 (09:00→19:38)
[2020-01-30] MEDS: amLODIPine 5 MG TAB PO SCH (09:00)
[2020-01-30] MEDS: DIVALPROEX 500MG *ER* TAB PO SCH ×2 (09:00→19:37)
[2020-01-30] MEDS: chlorproMAZINE 25 MG TABLET PO SCH ×2 (09:00→19:38)
[2020-01-30 16:12] VITALS: BP 123/69
[2020-01-30] MEDS: DIVALPROEX 250MG *ER* TAB PO SCH (19:37)
[2020-01-30] MEDS ORDERED: LORazepam 2 MG/ML VIAL IM STA (20:44)
[2020-01-30 21:15] VITALS: BP 140/62
[2020-01-30] MEDS: traZODone 50 MG TAB PO PRN (21:33)
[2020-01-31] MEDS: haloperidoL 5 MG TAB PO SCH ×2 (09:00→22:13)
[2020-01-31] MEDS: DIVALPROEX 500MG *ER* TAB PO SCH ×2 (09:00→22:13)
[2020-01-31] MEDS: chlorproMAZINE 25 MG TABLET PO SCH ×2 (09:00→22:13)
[2020-01-31] MEDS: amLODIPine 5 MG TAB PO SCH (09:00)
--- NOTE | 2020-01-31 09:12 | MHIPNPDOC ---
[facility] Progress Note Progress Note DATE OF SERVICE: 01/31/20 Yareli presents today for mental health evaluation. She did not want to talk, and remained silent throughout the evaluation. Objective Behavior: Refused to talk. Simply stated I am not going to talk. Assessment F33.9 Major depressive disorder, recurrent, unspecified F60.2 Antisocial personality disorder Plan Continue Thorazine 150 mg, twice a day. Start Cogentin 0.5 mg, twice a day. Nursing staff reported EPS. Continue to seek placement. Vital Signs Vital Signs Date Time Temp Pulse Resp B/P (MAP) Pulse Ox O2 Delivery O2 Flow Rate FiO2 01/31/20 08:45 Room Air 01/30/20 21:15 98.5 78 15 140/62 99 Current Medications Current Medications Medications (Trade) Dose Ordered Sig/Brielle Route PRN Reason Start Time Stop Time Status Last Admin Dose Admin Acetaminophen (Tylenol Tab) 650 mg Q6HP PRN PO HEADACHE or DISCOMFORT 01/10/20 20:45 01/23/20 16:28 Al Hydrox/Mg Hydrox/Simethicone (Mylanta) 30 ml Q4HP PRN PO HEARTBURN/INDIGESTION 01/10/20 20:45 01/29/20 22:47 Amlodipine Besylate (Norvasc) 5 mg DAILY PO 01/18/20 09:00 Chlorpromazine HCl (Thorazine) 100 mg STAT STAT IM 01/17/20 16:01 01/17/20 16:05 DC 01/17/20 16:08 Chlorpromazine HCl (Thorazine) 150 mg BID PO 01/21/20 21:00 01/21/20 15:00 DC Chlorpromazine HCl (Thorazine) 150 mg BID PO 01/29/20 21:00 01/30/20 19:38 Chlorpromazine HCl (Thorazine) 150 mg Q3H PRN PO AGITATION 01/20/20 19:30 01/21/20 15:08 Chlorpromazine HCl (Thorazine) 150 mg QHS PO 01/21/20 15:00 01/21/20 15:06 DC Chlorpromazine HCl (Thorazine) 150 mg QHS PO 01/21/20 21:00 01/29/20 09:11 DC 01/27/20 22:29 Chlorpromazine HCl (Thorazine) 150 mg STAT STAT IM 01/23/20 21:11 01/23/20 21:13 DC 01/23/20 21:36 Diphenhydramine HCl (Benadryl) 50 mg STAT STAT IM 01/23/20 19:38 01/23/20 19:41 DC 01/23/20 19:50 Diphenhydramine HCl (Benadryl) 50 mg STAT STAT IM 01/23/20 20:13 01/23/20 20:17 DC 01/23/20 20:29 Diphenhydramine HCl (Benadryl) 50 mg STAT STAT IM 01/27/20 19:42 01/27/20 19:45 DC 01/27/20 19:55 Diphenhydramine HCl (Benadryl) 50 mg STAT STAT IM 01/28/20 21:23 01/28/20 21:38 DC 01/28/20 21:41 Diphenhydramine HCl (Benadryl) 50 mg STAT STAT IM 01/12/20 20:07 01/12/20 20:09 DC 01/12/20 20:16 Diphenhydramine HCl (Benadryl) 50 mg STAT STAT IM 01/15/20 01:13 01/15/20 01:15 DC 01/15/20 01:18 Divalproex Sodium (Depakote Er) 250 mg QHS PO 01/25/20 21:00 01/30/20 19:37 Divalproex Sodium (Depakote Er) 500 mg BID PO 01/12/20 09:00 01/30/20 19:37 Divalproex Sodium (Depakote) 250 mg TID PO 01/11/20 16:00 01/12/20 13:52 DC 01/11/20 20:22 Haloperidol (Haldol) 5 mg BID PO 01/17/20 09:00 01/30/20 19:38 Haloperidol (Haldol) 5 mg STAT STAT IM 01/23/20 20:13 01/23/20 20:17 DC 01/23/20 20:45 Haloperidol (Haldol) 5 mg STAT STAT IM 01/24/20 22:40 01/24/20 22:42 DC 01/24/20 22:45 Haloperidol (Haldol) 7.5 mg STAT STAT IM 01/16/20 21:58 01/16/20 22:00 DC 01/16/20 22:06 Haloperidol (Haldol) 10 mg STAT STAT IM 01/21/20 19:42 01/21/20 19:44 DC 01/21/20 19:48 Haloperidol (Haldol) 10 mg STAT STAT IM 01/21/20 22:01 01/21/20 22:03 DC 01/21/20 22:08 Haloperidol (Haldol) 10 mg STAT STAT IM 01/23/20 19:38 01/23/20 19:41 DC 01/23/20 19:49 Haloperidol (Haldol) 10 mg STAT STAT IM 01/27/20 19:42 01/27/20 19:45 DC 01/27/20 19:55 Haloperidol (Haldol) 10 mg STAT STAT IM 01/28/20 21:23 01/28/20 21:38 DC 01/28/20 21:42 Haloperidol (Haldol) 10 mg STAT STAT IM 01/12/20 20:07 01/12/20 20:09 DC 01/12/20 20:16 Haloperidol (Haldol) 10 mg STAT STAT IM 01/15/20 01:13 01/15/20 01:14 DC 01/15/20 01:18 Home Med (Med Rec Complete!) ASDIRECTED XX 01/10/20 19:00 01/10/20 18:51 DC Ibuprofen (Advil) 800 mg Q6HP PRN PO MODERATE PAIN (PS 5-7) 01/15/20 20:45 01/20/20 13:25 Lorazepam (Ativan) 1 mg STAT STAT IM 01/30/20 20:44 01/30/20 20:47 DC 01/30/20 21:03 Lorazepam (Ativan) 1 mg STAT STAT IM 01/16/20 21:58 01/16/20 22:00 DC 01/16/20 22:06 Lorazepam (Ativan) 2 mg STAT STAT IM 01/23/20 19:38 01/23/20 19:41 DC 01/23/20 19:50 Lorazepam (Ativan) 2 mg STAT STAT IM 01/23/20 20:13 01/23/20 20:17 DC 01/23/20 20:31 Lorazepam (Ativan) 2 mg STAT STAT IM 01/24/20 21:54 01/24/20 21:56 DC 01/24/20 21:58 Lorazepam (Ativan) 2 mg STAT STAT IM 01/27/20 19:42 01/27/20 19:45 DC 01/27/20 19:55 Lorazepam (Ativan) 2 mg STAT STAT IM 01/28/20 21:23 01/28/20 21:38 DC 01/28/20 21:41 Lorazepam (Ativan) 2 mg STAT STAT IM 01/12/20 20:07 01/12/20 20:09 DC 01/12/20 20:16 Lorazepam (Ativan) 2 mg STAT STAT IM 01/15/20 01:13 01/15/20 01:15 DC 01/15/20 01:19 Lorazepam (Ativan) 2 mg STAT STAT PO 01/10/20 19:38 01/10/20 19:39 DC 01/10/20 19:49 Magnesium Hydroxide (Milk Of Magnesia) 30 ml DAILYPRN PRN PO CONSTIPATION 01/10/20 20:45 Olanzapine (ZyPREXA ZYDIS) 5 mg Q4HP PRN PO AGITATION 01/10/20 20:45 01/21/20 14:58 DC 01/18/20 19:46 Olanzapine (ZyPREXA) 5 mg TID PO 01/10/20 21:00 01/11/20 16:31 DC 01/10/20 22:33 Trazodone HCl (Desyrel) 50 mg QHSP PRN PO INSOMNIA 01/10/20 20:45 01/30/20 21:33 Allergies Coded Allergies: haloperidol (Verified Adverse Reaction, Intermediate, LOCKJAW, 01/03/20) Has required & received this med many time without EPS noted risperidone (Verified Adverse Reaction, Mild, PSORIASIS, 11/26/19) FELIX BUTCHER DO Jan 31, 2020 09:12
[2020-01-31] MEDS ORDERED: BENZTROPINE 0.5 MG TAB PO PRN (11:00)
[2020-01-31] MEDS ORDERED: ONDANSETRON 4 MG TAB PO ONE (14:45)
[2020-01-31 15:27] LABS: HEMATOCRIT 38.2 % (36.0-47.0); HEMOGLOBIN 12.5 g/dl (12.0-15.5); MEAN CORPUSCULAR HEMOGLOBIN 29.5 pg (27.0-33.0); MEAN CORPUSCULAR HGB CONC 32.7 g/dl (32.0-36.5); MEAN CORPUSCULAR VOLUME 90.1 fl (80.0-96.0); PLATELET COUNT, AUTOMATED 222 10^3/uL (150-450); RED BLOOD COUNT 4.24 10^6/uL (4.00-5.40); WHITE BLOOD COUNT 5.7 10^3/uL (4.0-10.0)
[2020-01-31 15:59] LABS: ALBUMIN 3.9 GM/DL (3.2-5.2); ALT/SGPT 30 U/L (12-78); AMYLASE 37 U/L (25-115); BILIRUBIN,TOTAL 0.2 MG/DL (0.2-1.0); BLOOD UREA NITROGEN 14 MG/DL (7-18); CALCIUM LEVEL 8.9 MG/DL (8.5-10.1); CARBON DIOXIDE LEVEL 30 MEQ/L (21-32); CHLORIDE LEVEL 107 MEQ/L (98-107); CREATININE FOR GFR 0.63 MG/DL (0.55-1.30); GLUCOSE, FASTING 79 MG/DL (70-100); LIPASE 94 U/L (73-393); POTASSIUM SERUM 4.1 MEQ/L (3.5-5.1); SODIUM LEVEL 141 MEQ/L (136-145); TOTAL PROTEIN 7.5 GM/DL (6.4-8.2)
[2020-01-31] MEDS ORDERED: HALOPERIDOL 5MG/ML VIAL (J1630 PER 1) IM STA ×3 (19:55→21:01)
[2020-01-31] MEDS ORDERED: diphenhydrAMINE 50MG/ML VIAL (J1200) IM STA ×3 (19:55→21:01)
[2020-01-31] MEDS ORDERED: LORazepam 2 MG/ML VIAL IM STA ×3 (19:55→21:01)
[2020-01-31 21:30] VITALS: BP 128/69
[2020-01-31] MEDS: DIVALPROEX 250MG *ER* TAB PO SCH (22:13)
--- NOTE | 2020-02-01 07:59 | MHIPNPDOC ---
[facility] Progress Note Progress Note DATE OF SERVICE: 02/01/20 HPI: Yareli presents today for a follow up regarding her depression, reactive attachment disorder, and borderline/antisocial personality disorder. Received information from Addie and Dr. Domingo. Regarding particular feelings and suicidal thoughts, Yareli did not show much response. Patient interaction minimal - No ROS. MEDICATIONS: Years ago, Yareli did well with Abilify and Clonazepam. Objective Behavior: Patient makes little effort to engage, opens eyes and then turns over again. 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 Domingo at [place] suggests that a combination of Abilify and Clonazepam had performed superiorly when she was much younger, especially given their conceptualization was that she has reactive attachment disorder likely with some borderline antisocial features. Will ion exchange operator to 0.25 mg BID of Clonazepam and start Abilify 5 mg nightly. . She had coded yesterday and post restraint documentation is completed. Vital Signs Vital Signs Date Time Temp Pulse Resp B/P (MAP) Pulse Ox O2 Delivery O2 Flow Rate FiO2 01/31/20 21:30 97.5 72 18 128/69 100 Room Air Laboratory Data 24H Labs Laboratory Tests 2 01/31/20 15:12: Nucleated Red Blood Cells % (auto) 0.0, Anion Gap 4L, Calcium Level 8.9, Total Bilirubin 0.2, Aspartate Amino Transf (AST/SGOT) 17, Alanine Aminotransferase (ALT/SGPT) 30, Alkaline Phosphatase 121H, Total Protein 7.5, Albumin 3.9, Albumin/Globulin Ratio 1.1L, Amylase Level 37, Lipase 94 CBC/BMP Laboratory Tests 01/31/20 15:12 Current Medications Current Medications Medications (Trade) Dose Ordered Sig/Brielle Route PRN Reason Start Time Stop Time Status Last Admin Dose Admin Acetaminophen (Tylenol Tab) 650 mg Q6HP PRN PO HEADACHE or DISCOMFORT 01/10/20 20:45 01/23/20 16:28 Al Hydrox/Mg Hydrox/Simethicone (Mylanta) 30 ml Q4HP PRN PO HEARTBURN/INDIGESTION 01/10/20 20:45 01/29/20 22:47 Amlodipine Besylate (Norvasc) 5 mg DAILY PO 01/18/20 09:00 Benztropine Mesylate (Cogentin) 0.5 mg BIDP PRN PO EPS 01/31/20 11:00 Chlorpromazine HCl (Thorazine) 100 mg STAT STAT IM 01/17/20 16:01 01/17/20 16:05 DC 01/17/20 16:08 Chlorpromazine HCl (Thorazine) 150 mg BID PO 01/21/20 21:00 01/21/20 15:00 DC Chlorpromazine HCl (Thorazine) 150 mg BID PO 01/29/20 21:00 01/30/20 19:38 Chlorpromazine HCl (Thorazine) 150 mg Q3H PRN PO AGITATION 01/20/20 19:30 01/21/20 15:08 Chlorpromazine HCl (Thorazine) 150 mg QHS PO 01/21/20 15:00 01/21/20 15:06 DC Chlorpromazine HCl (Thorazine) 150 mg QHS PO 01/21/20 21:00 01/29/20 09:11 DC 01/27/20 22:29 Chlorpromazine HCl (Thorazine) 150 mg STAT STAT IM 01/23/20 21:11 01/23/20 21:13 DC 01/23/20 21:36 Diphenhydramine HCl (Benadryl) 50 mg STAT STAT IM 01/23/20 19:38 01/23/20 19:41 DC 01/23/20 19:50 Diphenhydramine HCl (Benadryl) 50 mg STAT STAT IM 01/23/20 20:13 01/23/20 20:17 DC 01/23/20 20:29 Diphenhydramine HCl (Benadryl) 50 mg STAT STAT IM 01/27/20 19:42 01/27/20 19:45 DC 01/27/20 19:55 Diphenhydramine HCl (Benadryl) 50 mg STAT STAT IM 01/28/20 21:23 01/28/20 21:38 DC 01/28/20 21:41 Diphenhydramine HCl (Benadryl) 50 mg STAT STAT IM 01/31/20 19:55 01/31/20 19:57 DC 01/31/20 20:15 Diphenhydramine HCl (Benadryl) 50 mg STAT STAT IM 01/31/20 20:26 01/31/20 20:28 DC 01/31/20 20:35 Diphenhydramine HCl (Benadryl) 50 mg STAT STAT IM 01/31/20 21:01 01/31/20 21:03 DC 01/31/20 21:18 Diphenhydramine HCl (Benadryl) 50 mg STAT STAT IM 01/12/20 20:07 01/12/20 20:09 DC 01/12/20 20:16 Diphenhydramine HCl (Benadryl) 50 mg STAT STAT IM 01/15/20 01:13 01/15/20 01:15 DC 01/15/20 01:18 Divalproex Sodium (Depakote Er) 250 mg QHS PO 01/25/20 21:00 01/30/20 19:37 Divalproex Sodium (Depakote Er) 500 mg BID PO 01/12/20 09:00 01/30/20 19:37 Divalproex Sodium (Depakote) 250 mg TID PO 01/11/20 16:00 01/12/20 13:52 DC 01/11/20 20:22 Haloperidol (Haldol) 5 mg BID PO 01/17/20 09:00 01/30/20 19:38 Haloperidol (Haldol) 5 mg STAT STAT IM 01/23/20 20:13 01/23/20 20:17 DC 01/23/20 20:45 Haloperidol (Haldol) 5 mg STAT STAT IM 01/24/20 22:40 01/24/20 22:42 DC 01/24/20 22:45 Haloperidol (Haldol) 5 mg STAT STAT IM 01/31/20 20:26 01/31/20 20:28 DC 01/31/20 20:36 Haloperidol (Haldol) 7.5 mg STAT STAT IM 01/16/20 21:58 01/16/20 22:00 DC 01/16/20 22:06 Haloperidol (Haldol) 10 mg STAT STAT IM 01/21/20 19:42 01/21/20 19:44 DC 01/21/20 19:48 Haloperidol (Haldol) 10 mg STAT STAT IM 01/21/20 22:01 01/21/20 22:03 DC 01/21/20 22:08 Haloperidol (Haldol) 10 mg STAT STAT IM 01/23/20 19:38 01/23/20 19:41 DC 01/23/20 19:49 Haloperidol (Haldol) 10 mg STAT STAT IM 01/27/20 19:42 01/27/20 19:45 DC 01/27/20 19:55 Haloperidol (Haldol) 10 mg STAT STAT IM 01/28/20 21:23 01/28/20 21:38 DC 01/28/20 21:42 Haloperidol (Haldol) 10 mg STAT STAT IM 01/31/20 19:55 01/31/20 19:57 DC 01/31/20 20:15 Haloperidol (Haldol) 10 mg STAT STAT IM 01/31/20 21:01 01/31/20 21:03 DC 01/31/20 21:17 Haloperidol (Haldol) 10 mg STAT STAT IM 01/12/20 20:07 01/12/20 20:09 DC 01/12/20 20:16 Haloperidol (Haldol) 10 mg STAT STAT IM 01/15/20 01:13 01/15/20 01:14 DC 01/15/20 01:18 Home Med (Med Rec Complete!) ASDIRECTED XX 01/10/20 19:00 01/10/20 18:51 DC Ibuprofen (Advil) 800 mg Q6HP PRN PO MODERATE PAIN (PS 5-7) 01/15/20 20:45 01/20/20 13:25 Lorazepam (Ativan) 1 mg STAT STAT IM 01/30/20 20:44 01/30/20 20:47 DC 01/30/20 21:03 Lorazepam (Ativan) 1 mg STAT STAT IM 01/16/20 21:58 01/16/20 22:00 DC 01/16/20 22:06 Lorazepam (Ativan) 2 mg STAT STAT IM 01/23/20 19:38 01/23/20 19:41 DC 01/23/20 19:50 Lorazepam (Ativan) 2 mg STAT STAT IM 01/23/20 20:13 01/23/20 20:17 DC 01/23/20 20:31 Lorazepam (Ativan) 2 mg STAT STAT IM 01/24/20 21:54 01/24/20 21:56 DC 01/24/20 21:58 Lorazepam (Ativan) 2 mg STAT STAT IM 01/27/20 19:42 01/27/20 19:45 DC 01/27/20 19:55 Lorazepam (Ativan) 2 mg STAT STAT IM 01/28/20 21:23 01/28/20 21:38 DC 01/28/20 21:41 Lorazepam (Ativan) 2 mg STAT STAT IM 01/31/20 19:55 01/31/20 19:57 DC 01/31/20 20:16 Lorazepam (Ativan) 2 mg STAT STAT IM 01/31/20 20:26 01/31/20 20:28 DC 01/31/20 20:36 Lorazepam (Ativan) 2 mg STAT STAT IM 01/31/20 21:01 01/31/20 21:03 DC 01/31/20 21:17 Lorazepam (Ativan) 2 mg STAT STAT IM 01/12/20 20:07 01/12/20 20:09 DC 01/12/20 20:16 Lorazepam (Ativan) 2 mg STAT STAT IM 01/15/20 01:13 01/15/20 01:15 DC 01/15/20 01:19 Lorazepam (Ativan) 2 mg STAT STAT PO 01/10/20 19:38 01/10/20 19:39 DC 01/10/20 19:49 Magnesium Hydroxide (Milk Of Magnesia) 30 ml DAILYPRN PRN PO CONSTIPATION 01/10/20 20:45 Olanzapine (ZyPREXA ZYDIS) 5 mg Q4HP PRN PO AGITATION 01/10/20 20:45 01/21/20 14:58 DC 01/18/20 19:46 Olanzapine (ZyPREXA) 5 mg TID PO 01/10/20 21:00 01/11/20 16:31 DC 01/10/20 22:33 Trazodone HCl (Desyrel) 50 mg QHSP PRN PO INSOMNIA 01/10/20 20:45 01/30/20 21:33 Allergies Coded Allergies: haloperidol (Verified Adverse Reaction, Intermediate, LOCKJAW, 01/03/20) Has required & received this med many time without EPS noted risperidone (Verified Adverse Reaction, Mild, PSORIASIS, 11/26/19) FELIX BUTCHER DO Feb 01, 2020 07:59
[2020-02-01] MEDS ORDERED: clonazePAM 0.5 MG TAB PO SCH (09:00)
[2020-02-01] MEDS: amLODIPine 5 MG TAB PO SCH (09:00)
[2020-02-01] MEDS: haloperidoL 5 MG TAB PO SCH (09:00)
[2020-02-01] MEDS ORDERED: PILL CUTTER 1 EACH XX PRN (10:00)
--- NOTE | 2020-02-01 11:33 | MHPR ---
General Date: Feb 01, 2020 Time: 11:33 Post-Restraint Evaluation THE OUTCOME OF THE RESTRAINT: positive EFFECTIVENESS OF THE RESTRAINT: Mechanical and/or chemical: [Positive]. ANY EVIDENCE THAT THE PATIENT WAS AFFECTED EMOTIONALLY: no ANY NEED FOR COUNSELING/ASSISTANCE: no CHANGES IN TREATMENT PLAN: coordinate with night staff RECOMMENDATIONS FOR FUTURE INCIDENTS: n/a FELIX BUTCHER DO Feb 01, 2020 11:33
[2020-02-03] MEDS ORDERED: chlorproMAZINE 25 MG TABLET ONE (11:00)
[2020-02-03] MEDS ORDERED: traZODone 50 MG TAB ONE (11:00)
[2020-02-03] MEDS ORDERED: clonazePAM 0.5 MG TAB ONE ×4 (11:00)
[2020-02-03] MEDS ORDERED: haloperidoL 5 MG TAB ONE (11:00)
[2020-02-04] MEDS ORDERED: clonazePAM 0.5 MG TAB ONE ×4 (08:24→10:10)
[2020-02-04] MEDS ORDERED: haloperidoL 5 MG TAB ONE ×2 (10:07→10:10)
[2020-02-04] MEDS ORDERED: OLANZapine ORAL DISINTEGRATING TAB 5MG ONE (10:10)
[2020-02-04] MEDS ORDERED: chlorproMAZINE 25 MG TABLET ONE (10:10)
[2020-02-04] MEDS ORDERED: OLANZapine ORAL DISINTEGRATING TAB 5MG As Ordered ONE (18:21)
[2020-02-05] MEDS ORDERED: clonazePAM 0.5 MG TAB ONE (01:32)
[2020-02-05] MEDS ORDERED: haloperidoL 5 MG TAB ONE (01:32)
[2020-02-05] MEDS ORDERED: MAALOX 30 ML SUSP *UDC ONE (01:32)
[2020-02-05] MEDS ORDERED: chlorproMAZINE 25 MG TABLET ONE ×2 (01:32→08:27)
[2020-02-05] MEDS ORDERED: diphenhydrAMINE 50MG/ML VIAL (J1200) ONE ×2 (08:27→11:46)
[2020-02-05] MEDS ORDERED: chlorproMAZINE INJ 50MG/2ML AMP (J3230) ONE (08:27)
[2020-02-05] MEDS ORDERED: traZODone 50 MG TAB ONE (08:27)
[2020-02-05] MEDS ORDERED: OLANZapine INTRAMUSCULAR 10MG VIAL ONE (11:46)
[2020-02-05] MEDS ORDERED: chlorproMAZINE INJ 50MG/2ML AMP (J3230) As Ordered ONE (21:07)
[2020-02-05] MEDS ORDERED: diphenhydrAMINE 50MG/ML VIAL (J1200) As Ordered ONE ×2 (23:45→23:57)
[2020-02-05] MEDS ORDERED: OLANZapine INTRAMUSCULAR 10MG VIAL As Ordered ONE (23:46)
[2020-02-06] MEDS ORDERED: clonazePAM 0.5 MG TAB ONE ×2 (10:39→20:51)
[2020-02-06] MEDS ORDERED: LORazepam 2 MG/ML VIAL As Ordered ONE (19:38)
[2020-02-06] MEDS ORDERED: chlorproMAZINE INJ 50MG/2ML AMP (J3230) As Ordered ONE (19:38)
[2020-02-06] MEDS ORDERED: BENZTROPINE 0.5 MG TAB ONE (20:51)
[2020-02-07] MEDS ORDERED: clonazePAM 0.5 MG TAB ONE (10:07)
[2020-02-07] MEDS ORDERED: haloperidoL 5 MG TAB ONE ×2 (10:07→22:11)
[2020-02-07] MEDS ORDERED: clonazePAM 0.5 MG TAB As Ordered ONE ×2 (10:07→22:11)
[2020-02-07] MEDS ORDERED: MAALOX 30 ML SUSP *UDC ONE ×2 (16:10→22:11)
[2020-02-07] MEDS ORDERED: traZODone 50 MG TAB ONE (22:11)
[2020-02-08] MEDS ORDERED: clonazePAM 0.5 MG TAB As Ordered ONE ×2 (16:04→22:35)
[2020-02-08] MEDS ORDERED: OLANZapine ORAL DISINTEGRATING TAB 5MG As Ordered ONE (22:35)
[2020-02-08] MEDS ORDERED: haloperidoL 5 MG TAB ONE (22:35)
[2020-02-09] MEDS ORDERED: haloperidoL 5 MG TAB ONE ×2 (10:25→20:00)
[2020-02-09] MEDS ORDERED: clonazePAM 0.5 MG TAB ONE ×2 (10:25→20:00)
[2020-02-09] MEDS ORDERED: traZODone 50 MG TAB ONE (20:00)
[2020-02-09] MEDS ORDERED: OLANZapine ORAL DISINTEGRATING TAB 5MG As Ordered ONE (20:05)
[2020-02-09] MEDS ORDERED: MAALOX 30 ML SUSP *UDC ONE (21:15)
[2020-02-09] MEDS ORDERED: chlorproMAZINE 25 MG TABLET ONE (21:15)
[2020-02-10] MEDS ORDERED: haloperidoL 5 MG TAB ONE ×3 (09:49→20:47)
[2020-02-10] MEDS ORDERED: clonazePAM 0.5 MG TAB ONE ×4 (09:49→20:47)
[2020-02-10] MEDS ORDERED: HALOPERIDOL 5MG/ML VIAL (J1630 PER 1) As Ordered ONE (19:16)
[2020-02-10] MEDS ORDERED: LORazepam 2 MG/ML VIAL As Ordered ONE (19:17)
[2020-02-10] MEDS ORDERED: diphenhydrAMINE 50MG/ML VIAL (J1200) As Ordered ONE (19:17)
[2020-02-10] MEDS ORDERED: traZODone 50 MG TAB ONE (20:38)
[2020-02-10] MEDS ORDERED: chlorproMAZINE 25 MG TABLET ONE ×2 (20:38→20:47)
[2020-02-11] MEDS ORDERED: MAALOX 30 ML SUSP *UDC ONE (21:57)
[2020-02-12] MEDS ORDERED: clonazePAM 0.5 MG TAB ONE ×2 (08:23→19:20)
[2020-02-12] MEDS ORDERED: haloperidoL 5 MG TAB ONE ×2 (08:23→19:20)
[2020-02-12] MEDS ORDERED: chlorproMAZINE 25 MG TABLET ONE (19:20)
[2020-02-12] MEDS ORDERED: traZODone 50 MG TAB ONE (21:47)
[2020-02-12] MEDS ORDERED: MAALOX 30 ML SUSP *UDC ONE (21:47)
[2020-02-13] MEDS ORDERED: OLANZapine ORAL DISINTEGRATING TAB 5MG As Ordered ONE (16:44)
[2020-02-13] MEDS ORDERED: haloperidoL 5 MG TAB ONE (22:27)
[2020-02-13] MEDS ORDERED: traZODone 50 MG TAB ONE (22:27)
[2020-02-13] MEDS ORDERED: clonazePAM 0.5 MG TAB ONE (22:27)
--- NOTE | 2020-04-17 07:38 | MHPR ---
DATE: 02/11/2020 Yesterday, the patient became very aggressive and she had to be both chemically restrained with Haldol 10 mg, Ativan 2 mg, Benadryl 50 mg intramuscular (IM), and she was also physically restrained. OUTCOME OF RESTRAINT: Good. EFFECTIVENESS OF RESTRAINT BOTH MECHANICAL AND CHEMICAL: Good. The patient was no longer aggressive and was cooperative once removed from restraint. EVIDENCE PATIENT WAS AFFECTIVE EMOTIONALLY: The patient was sleeping and refused to talk to me, but there was no evidence that there were any negative effects. CHANGES TO TREATMENT PLAN: There are no changes recommended. MTDD
--- NOTE | 2020-05-09 20:46 | MHDSPDOC ---
[facility] Discharge Summary Discharge Summary DATE OF ADMISSION: Jan 10, 2020 at 20:39 DATE OF DISCHARGE: Feb 14, 2020 at 10:10 DISCHARGE DIAGNOSES: F33.8 Other recurrent depressive disorders F60.2 Antisocial personality disorder F60.3 Borderline personality disorder CONSULTANTS INVOLVED:[ None (basic hospitalist screening)] REASON FOR ADMISSION & TREATMENT AND PROGRESS ON THE UNIT : Yareli presented to inpatient mental health unit after reporting suicidal tho ughts. She has primary issue of chronically behave problematic and would because agitated at night around specific staff members if not given attention. Yareli generally did well in the unit during the daytime. Multiple options including all terminal carman TLS and other related options were explored, and she was declined from all those. It became clear that her continuous stay was only harming her as she would code nearly every evening at the same time. After consideration for quite some time, she was discharged back to home as continued state was likely to result in further agitation needing further injections and other harm. MEDICATIONS: She was trying a number of different medications including Haldol and Thorazine which were ineffective. Yareli was eventually started on Klonopin 0.25 mg BID and Abilify 5 mg nightly. This had done well for her in the past per [facility]. Discharge patient with Abilify 5 mg nightly and Klonopin 0.25 mg BID small supply is given with several refills in order to prevent overdoses. Patient has a chronic risk factor of overdose, but she is denying suicidality at this time and generally is returned to her baseline. She was able to be stabilized enough that she would be able to not be an imminent risk and does not meet involuntary criteria at this time. She was upset about her housing situation. MEDICAL HISTORY: She has a long history of being admitted. DISCHARGE ASSESSMENT[improved] Legal status considerations: The patient at the time of discharge did not meet criteria for involuntary admission/extension due to having a baseline mental status exam, baseline insight into the situation, They are engaged in the discharge process, as well as being friendly and amenable in behavioral control and havent been engaging in any observed concerning behavior or ideation recently. They decline voluntary extension/admission at this time and must be discharged in good sid, as Im unable to make a case for holding the patient against their will. They may have historical risk factors of admissions and other interactions with psychiatry however, those are not modifiable from a clinical perspective. The patient will need to be discharged in good sid. MENTAL STATUS EXAMINATION ON DISCHARGE: Appearance: Well nourished. Appears to be stated age. Well groomed. Behavior: Engaged. Pleasant. Cooperative with good eye contact. Affect: Full range. Appropriate to context. Speech: Normal rate. Spontaneous and Fluid. Normal volume. Thought Content: No evidence of suicidal ideation. No evidence of delusions. No thoughts of self harm. No evidence of aggressive or homicidal ideation. Judgement: Limited. Insight: Limited. PLAN/FOLLOWUP ARRANGEMENTS: Follow up appointments made (PCP and MH in 5 days of D/C date) and safety plan completed. Safety Planning aspects completed prior to discharge [Medication supplies limited to 7 days with 4 refills to prevent accumulation to OD] [RN reviewed crisis hotline information and other aspects to empower patient to access care in interim before next appointment.] The amount of time spent in the coordination of care for this patient was approximately 30 minutes. Medications Scheduled Olanzapine (Olanzapine) 5 Mg Tablet, 5 MG PO TID, (Reported) Allergies Coded Allergies: haloperidol (Verified Adverse Reaction, Intermediate, LOCKJAW, 01/03/20) Has required & received this med many time without EPS noted risperidone (Verified Adverse Reaction, Mild, PSORIASIS, 11/26/19) FELIX BUTCHER DO May 09, 2020 20:46
== END 2020-02-14 10:10 | disposition home or self-care (01) | DRG 753 ==
LOC: M ED 16:52 → M ED INP 20:39 → M PSY 22:04
PROVIDERS: ADMIT Psychiatry & Neurology Psychiatry; ATTEND Psychiatry & Neurology Addiction Medicine
DX: F33.8 Other recurrent depressive disorders (principal); R45.851 Suicidal ideations; F60.2 Antisocial personality disorder; F60.3 Borderline personality disorder; S82.451A Displaced comminuted fracture of shaft of right fibula, initial encounter for closed fracture; Z88.8 Allergy status to other drugs, medicaments and biological substances; W17.89XA Other fall from one level to another, initial encounter; Y92.230 Patient room in hospital as the place of occurrence of the external cause

== ENCOUNTER 2020-02-14 18:55 | Inpatient (IN) | payer MEDICAID ==
[2020-03-15 12:46] LABS: BASO % 0.2 % (0.0-1.0); EOS % 0.2 % (0.0-3.0); HEMATOCRIT 39.7 % (36.0-47.0); LYMPH # 1.3 10^3/uL (1.5-5.0); MEAN CORPUSCULAR HEMOGLOBIN 29.5 pg (27.0-33.0); MEAN CORPUSCULAR HGB CONC 32.7 g/dl (32.0-36.5); MONO # 0.4 10^3/uL (0.0-0.8); MONO % 4.8 % (0.0-5.0); NEUTROPHILS # 6.5 10^3/uL (1.5-8.5); NEUTROPHILS % 78.6 % (36.0-66.0); PLATELET COUNT, AUTOMATED 224 10^3/uL (150-450); RED BLOOD COUNT 4.41 10^6/uL (4.00-5.40); WHITE BLOOD COUNT 8.3 10^3/uL (4.0-10.0)
[2020-03-30 11:31] LABS: HCG, SERUM QUALITATIVE NEGATIVE (NEGATIVE)
[2020-03-30 12:41] LABS: ACETAMINOPHEN LEVEL < 2.0 UG/ML (10.0-30.0); ALBUMIN 4.1 GM/DL (3.2-5.2); ALT/SGPT 50 U/L (12-78); AMPHETAMINES LEVEL URINE NEGATIVE (NEGATIVE); BARBITURATES URINE NEGATIVE (NEGATIVE); BENZODIAZEPINES URINE NEGATIVE (NEGATIVE); BILIRUBIN,DIRECT 0.1 MG/DL (0.0-0.2); BILIRUBIN,TOTAL 0.3 MG/DL (0.2-1.0); BLOOD UREA NITROGEN 15 MG/DL (7-18); CANNABINOIDS URINE NEGATIVE (NEGATIVE); CARBON DIOXIDE LEVEL 27 MEQ/L (21-32); CHLORIDE LEVEL 108 MEQ/L (98-107); COCAINE METABOLITE URINE NEGATIVE (NEGATIVE); CREATININE FOR GFR 0.74 MG/DL (0.55-1.30); ETHYL ALCOHOL (ETHANOL) < 0.003 % (0.000-0.010); GLUCOSE, FASTING 108 MG/DL (70-100); METHADONE URINE NEGATIVE (NEGATIVE); OPIATES URINE NEGATIVE (NEGATIVE); PHENCYCLIDINE URINE NEGATIVE (NEGATIVE); POTASSIUM SERUM 3.9 MEQ/L (3.5-5.1); SALICYLATE LEVEL < 1.7 MG/DL (5.0-30.0); SODIUM LEVEL 141 MEQ/L (136-145); TOTAL PROTEIN 7.6 GM/DL (6.4-8.2)
--- NOTE | 2020-05-09 20:46 | MHDSPDOC ---
[facility] Discharge Summary Discharge Summary DATE OF ADMISSION: Feb 14, 2020 at 23:55 DATE OF DISCHARGE: Feb 15, 2020 at 13:45 please see H&P for same-day discharge Medications Scheduled Olanzapine (Olanzapine) 5 Mg Tablet, 5 MG PO TID, (Reported) Allergies Coded Allergies: haloperidol (Verified Adverse Reaction, Intermediate, LOCKJAW, 01/03/20) Has required & received this med many time without EPS noted risperidone (Verified Adverse Reaction, Mild, PSORIASIS, 11/26/19) FELIX BUTCHER DO May 09, 2020 20:46
== END 2020-02-15 13:45 | disposition home or self-care (01) | DRG 753 ==
LOC: M ED 18:55 → M PSY 23:55
PROVIDERS: ADMIT Psychiatry & Neurology Addiction Medicine; ATTEND Psychiatry & Neurology Addiction Medicine
DX: F31.9 Bipolar disorder, unspecified (principal); F60.3 Borderline personality disorder; F43.10 Post-traumatic stress disorder, unspecified; F90.9 Attention-deficit hyperactivity disorder, unspecified type; Z88.8 Allergy status to other drugs, medicaments and biological substances

== ENCOUNTER 2020-06-17 14:37 | Inpatient (IN) | payer MEDICAID, OTHER ==
[~2020-06-17] VITALS: Ht 167.6 cm; Wt 125.9 kg
[~2020-06-17 14:37] MED LIST changes: +ESCI10TA16 PO; -ESCI10TA2 PO; -FLUP5TA PO; +FLUP5TAB13 PO; -LORA-436 PO; +LORA-930 PO
[2020-06-17] MEDS ORDERED: CHARCOAL ACTIVATED LIQUID 25 GM/120 ML BTL PO ONE (14:45)
[2020-06-17] MEDS ORDERED: NS 1,000 ML IV ONE (15:30)
[2020-06-17 15:42] LABS: BASO % 0.3 % (0.0-1.0); EOS % 0.3 % (0.0-3.0); HEMATOCRIT 38.4 % (36.0-47.0); HEMOGLOBIN 12.3 g/dl (12.0-15.5); LYMPH # 1.4 10^3/uL (1.5-5.0); LYMPH % 21.7 % (24.0-44.0); MEAN CORPUSCULAR HEMOGLOBIN 28.9 pg (27.0-33.0); MEAN CORPUSCULAR VOLUME 90.4 fl (80.0-96.0); MONO # 0.4 10^3/uL (0.0-0.8); NEUTROPHILS # 4.7 10^3/uL (1.5-8.5); NEUTROPHILS % 71.4 % (36.0-66.0); PLATELET COUNT, AUTOMATED 246 10^3/uL (150-450); RED BLOOD COUNT 4.25 10^6/uL (4.00-5.40); WHITE BLOOD COUNT 6.6 10^3/uL (4.0-10.0)
[2020-06-17 16:21] LABS: ACETAMINOPHEN LEVEL < 2.0 UG/ML (10.0-30.0); ALT/SGPT 57 U/L (12-78); BILIRUBIN,DIRECT 0.1 MG/DL (0.0-0.2); BILIRUBIN,TOTAL 0.3 MG/DL (0.2-1.0); BLOOD UREA NITROGEN 19 MG/DL (7-18); CALCIUM LEVEL 8.9 MG/DL (8.5-10.1); CARBON DIOXIDE LEVEL 26 MEQ/L (21-32); CHLORIDE LEVEL 109 MEQ/L (98-107); CPK CREATINE PHOSPHOKINASE 144 U/L (26-192); CREATININE FOR GFR 0.78 MG/DL (0.55-1.30); ETHYL ALCOHOL (ETHANOL) < 0.003 % (0.000-0.010); GLUCOSE, FASTING 87 MG/DL (70-100); HCG, SERUM QUALITATIVE NEGATIVE (NEGATIVE); POTASSIUM SERUM 3.8 MEQ/L (3.5-5.1); SALICYLATE LEVEL < 1.7 MG/DL (5.0-30.0); SODIUM LEVEL 139 MEQ/L (136-145); THYROID STIMULATING HORMONE 0.247 uIU/ML (0.463-3.98); TOTAL PROTEIN 7.2 GM/DL (6.4-8.2)
[2020-06-17] MEDS ORDERED: DIAZ5TAB PO (18:12)
[2020-06-17] MEDS ORDERED: TOPI100T9 PO (18:12)
[2020-06-17] MEDS ORDERED: FLUO40CA PO (18:12)
[2020-06-17] MEDS ORDERED: MIRT1TAB16 PO (18:12)
[2020-06-17] MEDS ORDERED: ARIP1TAB4 PO (18:12)
[2020-06-17] MEDS ORDERED: HYDR50TA70 PO (18:12)
[2020-06-17 19:10] LABS: AMPHETAMINES LEVEL URINE NEGATIVE (NEGATIVE); BARBITURATES URINE NEGATIVE (NEGATIVE); BENZODIAZEPINES URINE POSITIVE (NEGATIVE); CANNABINOIDS URINE NEGATIVE (NEGATIVE); COCAINE METABOLITE URINE NEGATIVE (NEGATIVE); METHADONE URINE NEGATIVE (NEGATIVE); OPIATES URINE NEGATIVE (NEGATIVE); PHENCYCLIDINE URINE NEGATIVE (NEGATIVE)
[2020-06-17 19:22] LABS: FREE T4 0.89 NG/DL (0.78-1.33)
[2020-06-17] MEDS ORDERED: MIRT-60 PO (21:17)
[2020-06-17 21:45] LABS: RSV AMPLIFICATION NEGATIVE (NEGATIVE)
[2020-06-17] MEDS ORDERED: MOM 30ML SUSPENSION UDC PO PRN (23:00)
[2020-06-18 00:12] VITALS: BP 134/59
--- NOTE | 2020-06-18 00:46 | ECGEPIP ---
[facility] - ED Test Date: 2020-06-17 Pat Name: SCOTTY OCAMPO Department: Room: - Gender: Female Parachute Crown Sewer: smooth : 2000 Requested By: BENJAMIN Cohen Order Number: [id number] Reading MD: Rell Herrera Measurements Intervals Mora Rate: 55 P: 48 MI: 165 QRS: 1 QRSD: 93 T: 31 QT: 394 QTc: 377 Interpretive Statements SINUS BRADYCARDIA WITH MARKED SINUS ARRHYTHMIA MINIMAL VOLTAGE CRITERIA FOR LVH, CONSIDER NORMAL VARIANT SIMILAR TO 12/23/19 Electronically Signed on 06-18-2020 0:45:41 EST by Rell Herrera
[2020-06-18] MEDS ORDERED: INFLUENZA QUADRIVALENT PF VACCINE 0.5ML SYRINGE IM ONE (09:00)
[2020-06-18] MEDS: FLUoxetine 20 MG CAP PO SCH (09:00)
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
--- NOTE | 2020-06-18 18:56 | IPNPDOC ---
Text Note Date of Service The patient was seen on 06/18/20. NOTE Patient refused to talk to me and she refused a physical examination. Please contact hospitalist service when patient will be willing to talk. VS,Fishbone, I+O VS, Fishbone, I+O Vital Signs Date Time Temp Pulse Resp B/P (MAP) Pulse Ox O2 Delivery O2 Flow Rate FiO2 06/18/20 00:12 97.9 71 17 134/59 (84) 99 Room Air I&O- Last 24 Hours up to 6 AM 06/18/20 06:00 Intake Total 1000 ml Balance 1000 ml REID MALCOLM DO Jun 18, 2020 18:56
[2020-06-18] MEDS ORDERED: ARIPiprazole 2 MG TAB PO SCH (21:00)
[2020-06-18] MEDS: TOPIRAMATE (TopAMAX) 100 MG TAB PO SCH (22:53)
[2020-06-19] MEDS: ACETAMINOPHEN TAB 650MG DOSE (2X325MG) PO PRN ×2 (00:26→14:54)
[2020-06-19 06:29] VITALS: BP 145/79
[2020-06-19] MEDS: MAALOX 30 ML SUSP *UDC PO PRN (07:40)
[2020-06-19] MEDS: TOPIRAMATE (TopAMAX) 100 MG TAB PO SCH ×2 (10:04→20:43)
[2020-06-19] MEDS: FLUoxetine 20 MG CAP PO SCH (10:04)
[2020-06-19] MEDS: OLANZapine ORAL DISINTEGRATING TAB 5MG PO PRN ×2 (10:05→16:37)
--- NOTE | 2020-06-19 12:48 | MHIPNPDOC ---
[facility] Progress Note Progress Note DATE OF SERVICE: 06/19/20 HISTORY: The patient is met with today, he has generally been quite intrusive and had difficulty being redirected at times, he continues to state that he "wa nts to work with us", he has notably had no agitation episodes today. He reports feeling upset that others refer to the name as their previous name. He reports no other issues and has been going to group, open to going to a residential facility VITAL SIGNS: See below. NEW TEST RESULTS: None. CURRENT MEDICATIONS: See below. MENTAL STATUS EXAMINATION: General: [Well dressed with good hygiene] Speech: [Spontaneous and fluid] Thought processes: [Linear and logical] Thought content: [Future orientated] Abstract reasoning, and computation: [Intact] Description of associations: [Intact] Description of abnormal or psychotic thoughts: Reports contention suicidal thoughts if he is to be discharged Judgment: Poor/limited Insight: Poor/limited Orientation: [Alert and orientated 3] Recent and remote memory: [Intact] Attention span and concentration: [Intact] Fund of knowledge: [Adequate] Mood: ["okay"] Affect: Elated mildly DIAGNOSES: 1. Unspecified impulse/conduct disorder. 2. Antisocial personality disorder/borderline personality disorder. 3. Bipolar disorder?. ASSESSMENT: The patient, who prefers to be called Rigo could do best at a residential facility, will need to likely appeal to the insurance plan, as it is rare that he is ever interested in this MANAGEMENT PLAN: We will discontinue Abilify as likely unhelpful continue Prozac, will consider Vraylar if the elation continues. TIME SPENT: 15 minutes. Vital Signs Vital Signs Date Time Temp Pulse Resp B/P (MAP) Pulse Ox O2 Delivery O2 Flow Rate FiO2 06/19/20 06:29 97.2 85 18 145/79 (101) 99 Room Air Current Medications Current Medications Medications (Trade) Dose Ordered Sig/Brielle Route PRN Reason Start Time Stop Time Status Last Admin Dose Admin Acetaminophen (Tylenol Tab) 650 mg Q6HP PRN PO HEADACHE or DISCOMFORT 06/17/20 23:00 06/19/20 00:26 Al Hydrox/Mg Hydrox/Simethicone (Mylanta) 30 ml Q4HP PRN PO HEARTBURN/INDIGESTION 06/17/20 23:00 12/9/20 07:40 Aripiprazole (AbiLIFY) 2 mg QHS PO 06/18/20 21:00 06/18/20 22:52 Fluoxetine HCl (PROzac) 40 mg QAM PO 06/18/20 09:00 06/19/20 10:04 Home Med (Med Rec Complete!) ASDIRECTED XX 06/17/20 21:30 06/17/20 21:18 DC Magnesium Hydroxide (Milk Of Magnesia) 30 ml DAILYPRN PRN PO CONSTIPATION 06/17/20 23:00 Olanzapine (ZyPREXA ZYDIS) 5 mg Q4HP PRN PO AGITATION 06/17/20 23:00 06/19/20 10:05 Topiramate (TopAMAX) 100 mg BID PO 06/18/20 21:00 06/19/20 10:04 Trazodone HCl (Desyrel) 50 mg QHSP PRN PO INSOMNIA 06/17/20 23:00 Allergies Coded Allergies: haloperidol (Verified Adverse Reaction, Intermediate, LOCKJAW, 01/03/20) Has required & received this med many time without EPS noted risperidone (Verified Adverse Reaction, Mild, PSORIASIS, 11/26/19) FELIX BUTCHER DO Jun 19, 2020 12:48
[2020-06-19] MEDS ORDERED: ChlorproMAZINE 100 MG TABLET PO ONE (21:00)
[2020-06-20 07:00] VITALS: BP 118/71
[2020-06-20] MEDS: TOPIRAMATE (TopAMAX) 100 MG TAB PO SCH ×2 (09:25→21:00)
[2020-06-20] MEDS: FLUoxetine 20 MG CAP PO SCH (09:25)
--- NOTE | 2020-06-20 15:35 | MHIPNPDOC ---
[facility] Progress Note Progress Note DATE OF SERVICE: 06/20/20 HISTORY: Patient is a 19 -year-old Single, Unemployed, Undomiciled, , Transgender who prefers the pronoun he/him, who reportedly had taken 62 Valium 5 mg pills as a suicidal attempt. The patient is well-known to this facility with 7 admissions to [facility] this year, including he had just been discharged from [facility] after a reported 3-month hospitalization. It was also reported that he had been discharged from that facility at 11:30 yesterday and he was in [facility] ED by 1400. She had been living in [place], [place] at [facility] residence but he signed himself out citing "they were either going to kick me out or I was going to sign myself out." Patient appears to have a history of Malingering, Bipolar d/o, Dpression, Anxiety, & Borderline PD with multiple admissions to [facility] & other facilities. Pt reports a hx of suicide attempts via hanging & OD and hx of cutting. On this occasion, his biggest concern is that he wants to be addressed as Buck "Thomas with an I", he states. He states, "I want to address this with you, because I am afraid of telling the staff because I get so much resistance from them." VITAL SIGNS: See below. NEW TEST RESULTS: CURRENT MEDICATIONS: See below. MENTAL STATUS EXAMINATION: Patient is a 19-year old female, who is admitted to [facility] on a 9.39 after taking a reported overdose of 60+ tablets of Valium General Appearance: unkempt, appears stated age, hospital scubs/clothing Build: overweight Demeanor: other (expansive, tangential and hyperverbal) Eye Contact: average Activity: other (mildly restless) Behavior: other Speech: rapid, reg/rate,rhythm,volume Mood: hypomanic Affect: full Thought Process: logical/linear, racing (mildly) Thought Content (Delusions): grandiose Thought Content (Other): none reported Thought Content (Aggressive): none reported Perception (Hallucinations): none reported Perception (Other): none reported Cognition (Impairment of): none reported Cognition(Intelligence Est.): borderline Oriented: Awake, Alert, Oriented times three Insight: fair Judgment: Fair Psychosis: Denies DIAGNOSES: Borderline personality disorder. Bipolar disorder. Obesity. Antisocial personality disorder ASSESSMENT: Patient states that he is "doing better" but reports that she is on a 1:1 sitter because he tied a shirt around his neck yesterday. He continues to be focused on staff not calling him by his proper bame and that this is increasing his gender dysphoria. He reports his depression 4/10 and anxiety is 4/10. He reports fleeting suicidal thoughts and states that he has "poor impulse control and therefore this is why he is admitted to psychiatry." MANAGEMENT PLAN: Continue all medications as ordered. Due to his level of impulsivity and impulsive behaviors, patient is on a 1:1 sitter to reduce his level of self-harm. Patient has very strong Borderline Traits and his impulsive and constant attention-seeking behaviors should be closely watched as patient demonstrates that she can be impetuous and reckless. TIME SPENT: 15 minutes. Vital Signs Vital Signs Date Time Temp Pulse Resp B/P (MAP) Pulse Ox O2 Delivery O2 Flow Rate FiO2 06/20/20 07:00 97.1 69 18 118/71 (87) 98 Room Air Current Medications Current Medications Medications (Trade) Dose Ordered Sig/Brielle Route PRN Reason Start Time Stop Time Status Last Admin Dose Admin Acetaminophen (Tylenol Tab) 650 mg Q6HP PRN PO HEADACHE or DISCOMFORT 06/17/20 23:00 06/19/20 14:54 Al Hydrox/Mg Hydrox/Simethicone (Mylanta) 30 ml Q4HP PRN PO HEARTBURN/INDIGESTION 06/17/20 23:00 06/19/20 07:40 Aripiprazole (AbiLIFY) 2 mg QHS PO 06/18/20 21:00 06/19/20 15:03 DC 06/18/20 22:52 Fluoxetine HCl (PROzac) 40 mg QAM PO 06/18/20 09:00 06/20/20 09:25 Home Med (Med Rec Complete!) ASDIRECTED XX 06/17/20 21:30 06/17/20 21:18 DC Magnesium Hydroxide (Milk Of Magnesia) 30 ml DAILYPRN PRN PO CONSTIPATION 06/17/20 23:00 Olanzapine (ZyPREXA ZYDIS) 5 mg Q4HP PRN PO AGITATION 06/17/20 23:00 06/19/20 16:37 Topiramate (TopAMAX) 100 mg BID PO 06/18/20 21:00 06/20/20 09:25 Trazodone HCl (Desyrel) 50 mg QHSP PRN PO INSOMNIA 06/17/20 23:00 Allergies Coded Allergies: haloperidol (Verified Adverse Reaction, Intermediate, LOCKJAW, 01/03/20) Has required & received this med many time without EPS noted risperidone (Verified Adverse Reaction, Mild, PSORIASIS, 11/26/19) DECLAN SAENZ NP Jun 20, 2020 15:35
[2020-06-20 16:30] VITALS: BP 140/65
[2020-06-21 06:36] VITALS: BP 131/60
[2020-06-21] MEDS: FLUoxetine 20 MG CAP PO SCH (09:00)
[2020-06-21] MEDS: TOPIRAMATE (TopAMAX) 100 MG TAB PO SCH ×2 (09:00→21:00)
--- NOTE | 2020-06-21 14:10 | MHIPNPDOC ---
[facility] Progress Note Progress Note DATE OF SERVICE: 06/21/20 HISTORY: Patient is a 19 -year-old Single, Unemployed, Undomiciled, , Transgender who prefers the pronoun he/him, who reportedly had taken 62 Valium 5 mg pills as a suicidal attempt. The patient is well-known to this facility with 7 admissions to [facility] this year, including he had just been discharged from [facility] after a reported 3-month hospitalization. It was also reported that he had been discharged from that facility at 11:30 yesterday and he was in [facility] ED by 1400. She had been living in [place], [place] at [facility] residence but he signed himself out citing "they were either going to kick me out or I was going to sign myself out." Patient appears to have a history of Malingering, Bipolar d/o, Dpression, Anxiety, & Borderline PD with multiple admissions to [facility] & other facilities. Pt reports a hx of suicide attempts via hanging & OD and hx of cutting. On this occasion, his biggest concern is that he wants to be addressed as Buck "Thomas with an I", he states. He states, "I want to address this with you, because I am afraid of telling the staff because I get so much resistance from them." VITAL SIGNS: See below. NEW TEST RESULTS: CURRENT MEDICATIONS: See below. MENTAL STATUS EXAMINATION: Patient is a 19-year old female, who is admitted to [facility] on a 9.39 after taking a reported overdose of 60+ tablets of Valium General Appearance: unkempt, appears stated age, hospital scrubs/clothing Build: overweight Demeanor: impulsive, hostile, demeaning Eye Contact: average Activity: (mildly restless) Behavior: child-like at times. Speech: rapid, reg/rate,rhythm,volume Mood: euthymic Affect: full Thought Process: logical/linear, racing (mildly) Thought Content (Delusions): grandiose Thought Content (Other): none reported Thought Content (Aggressive): none reported Perception (Hallucinations): none reported Perception (Other): none reported Cognition (Impairment of): none reported Cognition(Intelligence Est.): borderline Oriented: Awake, Alert, Oriented times three Insight: fair Judgment: Fair Psychosis: Denies DIAGNOSES: Borderline personality disorder. Bipolar disorder. Obesity. Antisocial personality disorder ASSESSMENT: Patient states that he is does not want to be interviewed today, "because I did all the talking and she didn't ask me anything" Staff reports that she is engaged in the milieu and attending groups. Behavior is in control today. No issues. MANAGEMENT PLAN: Continue all medications as ordered. Due to his level of impulsivity and impulsive behaviors, patient is on a 1:1 sitter to reduce his level of self-harm. Patient has very strong Borderline Traits and his impulsive and constant attention-seeking behaviors. TIME SPENT: 25 minutes. Vital Signs Vital Signs Date Time Temp Pulse Resp B/P (MAP) Pulse Ox O2 Delivery O2 Flow Rate FiO2 06/21/20 06:36 96.8 69 16 131/60 (83) 100 Room Air Current Medications Current Medications Medications (Trade) Dose Ordered Sig/Brielle Route PRN Reason Start Time Stop Time Status Last Admin Dose Admin Acetaminophen (Tylenol Tab) 650 mg Q6HP PRN PO HEADACHE or DISCOMFORT 06/17/20 23:00 06/19/20 14:54 Al Hydrox/Mg Hydrox/Simethicone (Mylanta) 30 ml Q4HP PRN PO HEARTBURN/INDIGESTION 06/17/20 23:00 06/19/20 07:40 Aripiprazole (AbiLIFY) 2 mg QHS PO 06/18/20 21:00 06/19/20 15:03 DC 06/18/20 22:52 Fluoxetine HCl (PROzac) 40 mg QAM PO 06/18/20 09:00 06/20/20 09:25 Home Med (Med Rec Complete!) ASDIRECTED XX 06/17/20 21:30 06/17/20 21:18 DC Magnesium Hydroxide (Milk Of Magnesia) 30 ml DAILYPRN PRN PO CONSTIPATION 06/17/20 23:00 Olanzapine (ZyPREXA ZYDIS) 5 mg Q4HP PRN PO AGITATION 06/17/20 23:00 06/19/20 16:37 Topiramate (TopAMAX) 100 mg BID PO 06/18/20 21:00 06/20/20 09:25 Trazodone HCl (Desyrel) 50 mg QHSP PRN PO INSOMNIA 06/17/20 23:00 Allergies Coded Allergies: haloperidol (Verified Adverse Reaction, Intermediate, LOCKJAW, 01/03/20) Has required & received this med many time without EPS noted risperidone (Verified Adverse Reaction, Mild, PSORIASIS, 11/26/19) DECLAN SAENZ NP Jun 21, 2020 14:10
[2020-06-22] MEDS: FLUoxetine 20 MG CAP PO SCH (08:58)
[2020-06-22] MEDS: TOPIRAMATE (TopAMAX) 100 MG TAB PO SCH ×2 (08:58→21:00)
[2020-06-22] MEDS: OLANZapine ORAL DISINTEGRATING TAB 5MG PO PRN (14:48)
[2020-06-23] MEDS: OLANZapine ORAL DISINTEGRATING TAB 5MG PO PRN ×3 (00:24→19:43)
[2020-06-23] MEDS: TOPIRAMATE (TopAMAX) 100 MG TAB PO SCH ×3 (09:00→21:00)
[2020-06-23] MEDS: FLUoxetine 20 MG CAP PO SCH ×2 (09:00→11:44)
--- NOTE | 2020-06-24 07:59 | MHIPN ---
[facility] PROGRESS NOTE DATE: 06/22/2020 The patient refused to see me and so I am not able to evaluate her.
--- NOTE | 2020-06-24 08:10 | MHIPNPDOC ---
[facility] Progress Note Progress Note DATE OF SERVICE: 06/24/20 HISTORY: Patient's met with today, still appears quite elated and generally giddy and a very strange way, he reports that he is still trying to cope with the aggressive patient on the unit is yelling, reassured patient that behavioral control is indicated. Discussed with patient about suicidal thoughts, reports he still has them and had tried to detach a shirt around his neck. The patient has been going to groups but generally remains fairly intrusive and fairly bizarre. VITAL SIGNS: See below. NEW TEST RESULTS: None. CURRENT MEDICATIONS: See below. MENTAL STATUS EXAMINATION: General: [Well dressed with good hygiene] Speech: [Spontaneous and fluid] Thought processes: [Linear and logical] Thought content: Focused on small issues Abstract reasoning, and computation: [Intact] Description of associations: [Intact] Description of abnormal or psychotic thoughts: Reports continued suicidal thoughts Judgment: Poor/limited Insight: Poor/limited Orientation: [Alert and orientated 3] Recent and remote memory: [Intact] Attention span and concentration: [Intact] Fund of knowledge: [Adequate] Mood: ["okay"] Affect: Elated and mildly giddy DIAGNOSES: 1. Unspecified impulse/conduct disorder. 2. Antisocial personality disorder/borderline personality disorder. 3. Bipolar disorder?. ASSESSMENT: The patient may be suffering from overall bipolar disorder unclear, however his presentation this time is consistent with a fairly unusual affect and some lability, will need to try an alternative agent has been tried on a vast multitude of medications MANAGEMENT PLAN: Start cariprazine 1.5 mg daily, continue Zyprexa as needed for agitation and anxiety TIME SPENT: 15 minutes. Vital Signs Vital Signs Date Time Temp Pulse Resp B/P (MAP) Pulse Ox O2 Delivery O2 Flow Rate FiO2 06/23/20 17:43 97.9 90 16 98 Room Air 06/21/20 06:36 131/60 (83) Current Medications Current Medications Medications (Trade) Dose Ordered Sig/Brielle Route PRN Reason Start Time Stop Time Status Last Admin Dose Admin Acetaminophen (Tylenol Tab) 650 mg Q6HP PRN PO HEADACHE or DISCOMFORT 06/17/20 23:00 06/19/20 14:54 Al Hydrox/Mg Hydrox/Simethicone (Mylanta) 30 ml Q4HP PRN PO HEARTBURN/INDIGESTION 06/17/20 23:00 06/19/20 07:40 Aripiprazole (AbiLIFY) 2 mg QHS PO 06/18/20 21:00 06/19/20 15:03 DC 06/18/20 22:52 Fluoxetine HCl (PROzac) 40 mg QAM PO 06/18/20 09:00 06/23/20 11:44 Home Med (Med Rec Complete!) ASDIRECTED XX 06/17/20 21:30 06/17/20 21:18 DC Magnesium Hydroxide (Milk Of Magnesia) 30 ml DAILYPRN PRN PO CONSTIPATION 06/17/20 23:00 06/21/20 23:03 Olanzapine (ZyPREXA ZYDIS) 5 mg Q4HP PRN PO AGITATION 06/17/20 23:00 06/23/20 19:43 Topiramate (TopAMAX) 100 mg BID PO 06/18/20 21:00 06/23/20 11:44 Trazodone HCl (Desyrel) 50 mg QHSP PRN PO INSOMNIA 06/17/20 23:00 Allergies Coded Allergies: haloperidol (Verified Adverse Reaction, Intermediate, LOCKJAW, 01/03/20) Has required & received this med many time without EPS noted risperidone (Verified Adverse Reaction, Mild, PSORIASIS, 11/26/19) FELIX BUTCHER DO Jun 24, 2020 08:10
--- NOTE | 2020-06-24 08:44 | MHIPN ---
[facility] PROGRESS NOTE DATE: 06/23/2020 The patient today tells me, "I could be better. I am very anxious today." The patient had pressured speech today. She says that she was up until 3:00 in the morning "and then I crashed." She says that she used to be on trazodone and that that helped her sleep so she wants me to start it up again. MENTAL STATUS EXAMINATION: This patient is alert and oriented times three, pleasant and cooperative, verbally spontaneous, actually speech is pressured today. There is no formal thought disorder noted. She says her mood is "anxious." Affect appropriate to mood. She is not psychotic. She does continue to have vague suicidal thoughts. Concentration is fair. Memory intact. Insight and judgment poor. DIAGNOSES: Bipolar disorder. Borderline personality disorder. Antisocial personality disorder. TREATMENT PLAN: At this point, the patient will continue to be monitored for her affective instability today, as I said her speech was pressured. We will continue one-to-one observation because she continues to have vague suicidal thoughts.
[2020-06-24] MEDS: FLUoxetine 20 MG CAP PO SCH (09:43)
[2020-06-24] MEDS: OLANZapine ORAL DISINTEGRATING TAB 5MG PO PRN ×2 (09:43→15:26)
[2020-06-24] MEDS: TOPIRAMATE (TopAMAX) 100 MG TAB PO SCH ×2 (09:43→22:54)
[2020-06-24] MEDS ORDERED: CARIPRAZINE 1.5MG CAPSULE (VRAYLAR) PO ONE (11:00)
--- NOTE | 2020-06-25 09:15 | MHIPNPDOC ---
[facility] Progress Note Progress Note DATE OF SERVICE: 06/25/20 HISTORY:The patient is met with today, he reports that he still has difficulty with mood variation and some depression, but although no agitation episodes. T here are some difficulty today as he asked for increased portions, and that there had been in order denying this, after extensive discussion it is decided that this is not appropriate at this time as there is not sufficient justification to continue it. The patient reports that they feel increasingly hungry, Thus making them more irritable. VITAL SIGNS: See below. NEW TEST RESULTS: None. CURRENT MEDICATIONS: See below. MENTAL STATUS EXAMINATION: General: [Well dressed with good hygiene] Speech: [Spontaneous and fluid] Thought processes: [Linear and logical] Thought content: Focused on small issues Abstract reasoning, and computation: [Intact] Description of associations: [Intact] Description of abnormal or psychotic thoughts: Reports continued suicidal thoughts Judgment: Poor/limited Insight: Poor/limited Orientation: [Alert and orientated 3] Recent and remote memory: [Intact] Attention span and concentration: [Intact] Fund of knowledge: [Adequate] Mood: ["okay"] Affect: Elated and mildly giddy DIAGNOSES: 1. Unspecified impulse/conduct disorder. 2. Antisocial personality disorder/borderline personality disorder. 3. Bipolar disorder?. ASSESSMENT: The patient is likely still having mood variation we will slowly titrate up the Vraylar, will continue to look for residential at this is likely a much better option and given the difficulties continue one-to-one sitter to prevent self-injurious behavior MANAGEMENT PLAN: continue cariprazine 1.5 mg daily TIME SPENT: 15 minutes. Vital Signs Vital Signs Date Time Temp Pulse Resp B/P (MAP) Pulse Ox O2 Delivery O2 Flow Rate FiO2 06/23/20 17:43 97.9 90 16 98 Room Air 06/21/20 06:36 131/60 (83) Current Medications Current Medications Medications (Trade) Dose Ordered Sig/Brielle Route PRN Reason Start Time Stop Time Status Last Admin Dose Admin Acetaminophen (Tylenol Tab) 650 mg Q6HP PRN PO HEADACHE or DISCOMFORT 06/17/20 23:00 06/19/20 14:54 Al Hydrox/Mg Hydrox/Simethicone (Mylanta) 30 ml Q4HP PRN PO HEARTBURN/INDIGESTION 06/17/20 23:00 06/19/20 07:40 Aripiprazole (AbiLIFY) 2 mg QHS PO 06/18/20 21:00 06/19/20 15:03 DC 06/18/20 22:52 Cariprazine (Vraylar) 1.5 mg DAILY PO 06/25/20 09:00 Fluoxetine HCl (PROzac) 40 mg QAM PO 06/18/20 09:00 06/24/20 09:50 DC 06/24/20 09:43 Home Med (Med Rec Complete!) ASDIRECTED XX 06/17/20 21:30 06/17/20 21:18 DC Magnesium Hydroxide (Milk Of Magnesia) 30 ml DAILYPRN PRN PO CONSTIPATION 06/17/20 23:00 06/21/20 23:03 Olanzapine (ZyPREXA ZYDIS) 5 mg Q4HP PRN PO AGITATION 06/17/20 23:00 06/24/20 15:26 Topiramate (TopAMAX) 100 mg BID PO 06/18/20 21:00 06/24/20 09:43 Trazodone HCl (Desyrel) 50 mg QHSP PRN PO INSOMNIA 06/17/20 23:00 Allergies Coded Allergies: haloperidol (Verified Adverse Reaction, Intermediate, LOCKJAW, 01/03/20) Has required & received this med many time without EPS noted risperidone (Verified Adverse Reaction, Mild, PSORIASIS, 11/26/19) FELIX BUTCHER DO Jun 25, 2020 09:15
[2020-06-25] MEDS: TOPIRAMATE (TopAMAX) 100 MG TAB PO SCH ×2 (10:22→21:00)
[2020-06-25] MEDS: CARIPRAZINE 1.5MG CAPSULE (VRAYLAR) PO SCH (10:22)
[2020-06-25] MEDS: OLANZapine ORAL DISINTEGRATING TAB 5MG PO PRN (16:51)
[2020-06-26] MEDS: OLANZapine ORAL DISINTEGRATING TAB 5MG PO PRN ×3 (00:49→20:06)
[2020-06-26] MEDS ORDERED: ChlorproMAZINE 100 MG TABLET PO ONE (01:15)
[2020-06-26] MEDS: CARIPRAZINE 1.5MG CAPSULE (VRAYLAR) PO SCH (10:14)
[2020-06-26] MEDS: TOPIRAMATE (TopAMAX) 100 MG TAB PO SCH ×2 (10:14→21:15)
--- NOTE | 2020-06-26 11:19 | MHIPNPDOC ---
[facility] Progress Note Progress Note DATE OF SERVICE: 06/26/20 HISTORY:The patient is met with, he reports that he is still feeling depressed at times and otherwise has little else to report, still intrusive has difficulty being redirected but no overt agitation and remains on a one-to-one sitter. He reports he still has difficulty coping but has been noticeably more pleasant and engaged, less agitated but still reports suicidal thoughts although quite vague at this time. VITAL SIGNS: See below. NEW TEST RESULTS: None. CURRENT MEDICATIONS: See below. MENTAL STATUS EXAMINATION: General: [Well dressed with good hygiene] Speech: [Spontaneous and fluid] Thought processes: [Linear and logical] Thought content: Focused on small issues Abstract reasoning, and computation: [Intact] Description of associations: [Intact] Description of abnormal or psychotic thoughts: Reports continued suicidal thoughts Judgment: Poor/limited Insight: Poor/limited Orientation: [Alert and orientated 3] Recent and remote memory: [Intact] Attention span and concentration: [Intact] Fund of knowledge: [Adequate] Mood: ["okay"] Affect: Elated and mildly giddy DIAGNOSES: 1. Unspecified impulse/conduct disorder. 2. Antisocial personality disorder/borderline personality disorder. 3. Bipolar disorder?. ASSESSMENT: The patient will still need increased Vraylar, residential is the most ideal will take some time to ascertain we will continue one-to-one sitter as self-injurious behavior continues MANAGEMENT PLAN: Increase Vraylar to 3 mg daily TIME SPENT: 15 minutes. Vital Signs Vital Signs Date Time Temp Pulse Resp B/P (MAP) Pulse Ox O2 Delivery O2 Flow Rate FiO2 06/23/20 17:43 97.9 90 16 98 Room Air 06/21/20 06:36 131/60 (83) Current Medications Current Medications Medications (Trade) Dose Ordered Sig/Brielle Route PRN Reason Start Time Stop Time Status Last Admin Dose Admin Acetaminophen (Tylenol Tab) 650 mg Q6HP PRN PO HEADACHE or DISCOMFORT 06/17/20 23:00 06/19/20 14:54 Al Hydrox/Mg Hydrox/Simethicone (Mylanta) 30 ml Q4HP PRN PO HEARTBURN/INDIGESTION 06/17/20 23:00 06/19/20 07:40 Aripiprazole (AbiLIFY) 2 mg QHS PO 06/18/20 21:00 06/19/20 15:03 DC 06/18/20 22:52 Cariprazine (Vraylar) 1.5 mg DAILY PO 06/25/20 09:00 06/26/20 10:14 Fluoxetine HCl (PROzac) 40 mg QAM PO 06/18/20 09:00 06/24/20 09:50 DC 06/24/20 09:43 Home Med (Med Rec Complete!) ASDIRECTED XX 06/17/20 21:30 06/17/20 21:18 DC Magnesium Hydroxide (Milk Of Magnesia) 30 ml DAILYPRN PRN PO CONSTIPATION 06/17/20 23:00 06/21/20 23:03 Olanzapine (ZyPREXA ZYDIS) 5 mg Q4HP PRN PO AGITATION 06/17/20 23:00 06/26/20 10:14 Topiramate (TopAMAX) 100 mg BID PO 06/18/20 21:00 06/26/20 10:14 Trazodone HCl (Desyrel) 50 mg QHSP PRN PO INSOMNIA 06/17/20 23:00 Allergies Coded Allergies: haloperidol (Verified Adverse Reaction, Intermediate, LOCKJAW, 01/03/20) Has required & received this med many time without EPS noted risperidone (Verified Adverse Reaction, Mild, PSORIASIS, 11/26/19) FELIX BUTCHER DO Jun 26, 2020 11:19
[2020-06-27] MEDS: TOPIRAMATE (TopAMAX) 100 MG TAB PO SCH ×2 (09:36→21:00)
[2020-06-27] MEDS: CARIPRAZINE 3MG CAPSULE (VRAYLAR) PO SCH (09:37)
--- NOTE | 2020-06-27 14:27 | MHIPNPDOC ---
[facility] Progress Note Progress Note DATE OF SERVICE: 06/27/20 HISTORY: The patient is met with today, he reports no changes on the medications, he describes that he doesn't seem to notice whether he is taking and are not. Still reports feeling depressed and suicidal nearly consistently. Still having difficulty with intrusive thoughts and actions, needing frequent redirection by nurses and frequently asking for multiple wheels of paper to the point of needing large amounts. The patient interacts at times but is frequently group restricted due to behavior but has not overtly coded or become aggressive. NEW TEST RESULTS: None. CURRENT MEDICATIONS: See below. MENTAL STATUS EXAMINATION: General: [Well dressed with good hygiene] Speech: [Spontaneous and fluid] Thought processes: [Linear and logical] Thought content: Focused on small issues, such as paper Abstract reasoning, and computation: [Intact] Description of associations: [Intact] Description of abnormal or psychotic thoughts: Reports continued suicidal thoughts Judgment: Poor/limited Insight: Poor/limited Orientation: [Alert and orientated 3] Recent and remote memory: [Intact] Attention span and concentration: [Intact] Fund of knowledge: [Adequate] Mood: ["okay"] Affect: Somewhat more flat DIAGNOSES: 1. Unspecified impulse/conduct disorder. 2. Antisocial personality disorder/borderline personality disorder. 3. Bipolar disorder?. ASSESSMENT: Will need continued increase on medication since not clear whether this will improve the situation, although residential still the ideal able take some time to ascertain whether the insurance company is open to this, the patient does not have the funds to pay for treatment by himself and will likely need help. MANAGEMENT PLAN: Continue Vraylar at 3 mg daily TIME SPENT: 15 minutes. Vital Signs Vital Signs Date Time Temp Pulse Resp B/P (MAP) Pulse Ox O2 Delivery O2 Flow Rate FiO2 06/23/20 17:43 97.9 90 16 98 Room Air 06/21/20 06:36 131/60 (83) Current Medications Current Medications Medications (Trade) Dose Ordered Sig/Brielle Route PRN Reason Start Time Stop Time Status Last Admin Dose Admin Acetaminophen (Tylenol Tab) 650 mg Q6HP PRN PO HEADACHE or DISCOMFORT 06/17/20 23:00 06/19/20 14:54 Al Hydrox/Mg Hydrox/Simethicone (Mylanta) 30 ml Q4HP PRN PO HEARTBURN/INDIGESTION 06/17/20 23:00 06/19/20 07:40 Aripiprazole (AbiLIFY) 2 mg QHS PO 06/18/20 21:00 06/19/20 15:03 DC 06/18/20 22:52 Cariprazine (Vraylar) 1.5 mg DAILY PO 06/25/20 09:00 06/26/20 14:08 DC 06/26/20 10:14 Cariprazine (Vraylar) 3 mg DAILY PO 06/27/20 09:00 06/27/20 09:37 Fluoxetine HCl (PROzac) 40 mg QAM PO 06/18/20 09:00 06/24/20 09:50 DC 06/24/20 09:43 Home Med (Med Rec Complete!) ASDIRECTED XX 06/17/20 21:30 06/17/20 21:18 DC Magnesium Hydroxide (Milk Of Magnesia) 30 ml DAILYPRN PRN PO CONSTIPATION 06/17/20 23:00 06/21/20 23:03 Olanzapine (ZyPREXA ZYDIS) 5 mg Q4HP PRN PO AGITATION 06/17/20 23:00 06/26/20 20:06 Topiramate (TopAMAX) 100 mg BID PO 06/18/20 21:00 06/27/20 09:36 Trazodone HCl (Desyrel) 50 mg QHSP PRN PO INSOMNIA 06/17/20 23:00 Allergies Coded Allergies: haloperidol (Verified Adverse Reaction, Intermediate, LOCKJAW, 01/03/20) Has required & received this med many time without EPS noted risperidone (Verified Adverse Reaction, Mild, PSORIASIS, 11/26/19) FELIX BUTCHER DO Jun 27, 2020 14:27
[2020-06-27] MEDS: OLANZapine ORAL DISINTEGRATING TAB 5MG PO PRN (17:42)
[2020-06-27] MEDS: MAALOX 30 ML SUSP *UDC PO PRN (21:43)
[2020-06-28 07:04] VITALS: BP 124/74
[2020-06-28] MEDS: CARIPRAZINE 3MG CAPSULE (VRAYLAR) PO SCH (08:54)
[2020-06-28] MEDS: OLANZapine ORAL DISINTEGRATING TAB 5MG PO PRN ×2 (08:54→21:49)
[2020-06-28] MEDS: TOPIRAMATE (TopAMAX) 100 MG TAB PO SCH ×2 (08:54→20:43)
--- NOTE | 2020-06-28 12:16 | MHIPNPDOC ---
[facility] Progress Note Progress Note DATE OF SERVICE: 06/28/20 HISTORY: The patient is met with today, he reports that he does not notice any effect from the Vraylar. Otherwise the describes that he is using his coping s kills, still has difficulty splitting with various staff members and requesting an extraordinary amount of paper. The difficulties remain on a one-to-one, but no self harming behavior recently, still describes suicidal thoughts without change NEW TEST RESULTS: None. CURRENT MEDICATIONS: See below. MENTAL STATUS EXAMINATION: General: [Well dressed with good hygiene] Speech: [Spontaneous and fluid] Thought processes: [Linear and logical] Thought content: Focused on small issues, such as paper Abstract reasoning, and computation: [Intact] Description of associations: [Intact] Description of abnormal or psychotic thoughts: Reports continued suicidal thoughts Judgment: Poor/limited Insight: Poor/limited Orientation: [Alert and orientated 3] Recent and remote memory: [Intact] Attention span and concentration: [Intact] Fund of knowledge: [Adequate] Mood: ["okay"] Affect: Somewhat more flat DIAGNOSES: 1. Unspecified impulse/conduct disorder. 2. Antisocial personality disorder/borderline personality disorder. 3. Bipolar disorder?. ASSESSMENT: Will need continued increase on medication since not clear whether this will improve the situation, although residential still the ideal able take some time to ascertain whether the insurance company is open to this, the patient does not have the funds to pay for treatment by himself and will likely need help. MANAGEMENT PLAN: Continue Vraylar at 3 mg daily TIME SPENT: 15 minutes. Vital Signs Vital Signs Date Time Temp Pulse Resp B/P (MAP) Pulse Ox O2 Delivery O2 Flow Rate FiO2 06/28/20 07:04 97.6 80 18 124/74 (91) 100 Room Air Current Medications Current Medications Medications (Trade) Dose Ordered Sig/Brielle Route PRN Reason Start Time Stop Time Status Last Admin Dose Admin Acetaminophen (Tylenol Tab) 650 mg Q6HP PRN PO HEADACHE or DISCOMFORT 06/17/20 23:00 06/19/20 14:54 Al Hydrox/Mg Hydrox/Simethicone (Mylanta) 30 ml Q4HP PRN PO HEARTBURN/INDIGESTION 06/17/20 23:00 06/27/20 21:43 Aripiprazole (AbiLIFY) 2 mg QHS PO 06/18/20 21:00 06/19/20 15:03 DC 06/18/20 22:52 Cariprazine (Vraylar) 1.5 mg DAILY PO 06/25/20 09:00 06/26/20 14:08 DC 06/26/20 10:14 Cariprazine (Vraylar) 3 mg DAILY PO 06/27/20 09:00 06/28/20 08:54 Fluoxetine HCl (PROzac) 40 mg QAM PO 06/18/20 09:00 06/24/20 09:50 DC 06/24/20 09:43 Home Med (Med Rec Complete!) ASDIRECTED XX 06/17/20 21:30 06/17/20 21:18 DC Magnesium Hydroxide (Milk Of Magnesia) 30 ml DAILYPRN PRN PO CONSTIPATION 06/17/20 23:00 06/21/20 23:03 Olanzapine (ZyPREXA ZYDIS) 5 mg Q4HP PRN PO AGITATION 06/17/20 23:00 06/27/20 16:36 DC 06/26/20 20:06 Olanzapine (ZyPREXA ZYDIS) 10 mg Q4HP PRN PO AGITATION 06/27/20 16:45 06/28/20 08:54 Topiramate (TopAMAX) 100 mg BID PO 06/18/20 21:00 06/28/20 08:54 Trazodone HCl (Desyrel) 50 mg QHSP PRN PO INSOMNIA 06/17/20 23:00 Allergies Coded Allergies: haloperidol (Verified Adverse Reaction, Intermediate, LOCKJAW, 01/03/20) Has required & received this med many time without EPS noted risperidone (Verified Adverse Reaction, Mild, PSORIASIS, 11/26/19) FELIX BUTCHER DO Jun 28, 2020 12:16
[2020-06-28] MEDS: MAALOX 30 ML SUSP *UDC PO PRN (21:09)
[2020-06-28] MEDS ORDERED: ChlorproMAZINE 100 MG TABLET PO ONE (22:15)
[2020-06-28] MEDS ORDERED: chlorproMAZINE 25 MG TABLET PO ONE (22:15)
[2020-06-29] MEDS: CETIRIZINE (ZyrTEC) 10 MG TAB PO SCH (12:35)
[2020-06-29] MEDS: CARIPRAZINE 3MG CAPSULE (VRAYLAR) PO SCH (12:36)
[2020-06-29] MEDS: TOPIRAMATE (TopAMAX) 100 MG TAB PO SCH ×2 (12:36→20:55)
[2020-06-29] MEDS: chlorproMAZINE 25 MG TABLET PO PRN (17:05)
[2020-06-29] MEDS: MAALOX 30 ML SUSP *UDC PO PRN (19:38)
[2020-06-29] MEDS: traZODone 50 MG TAB PO PRN (23:34)
[2020-06-30 06:46] VITALS: BP 137/98
[2020-06-30] MEDS: CETIRIZINE (ZyrTEC) 10 MG TAB PO SCH (09:33)
[2020-06-30] MEDS: TOPIRAMATE (TopAMAX) 100 MG TAB PO SCH ×2 (09:33→21:00)
[2020-06-30] MEDS: CARIPRAZINE 3MG CAPSULE (VRAYLAR) PO SCH (09:33)
[2020-06-30] MEDS: MAALOX 30 ML SUSP *UDC PO PRN (17:21)
[2020-07-01] MEDS: CARIPRAZINE 3MG CAPSULE (VRAYLAR) PO SCH (09:02)
[2020-07-01] MEDS: CETIRIZINE (ZyrTEC) 10 MG TAB PO SCH (09:02)
[2020-07-01] MEDS: TOPIRAMATE (TopAMAX) 100 MG TAB PO SCH ×2 (09:02→21:20)
--- NOTE | 2020-07-01 10:04 | MHIPNPDOC ---
[facility] Progress Note Progress Note DATE OF SERVICE: 07/01/20 HISTORY: The patient has met with today he had initially wanted to see about being discharged with a another patient that was leaving that day who had offered for him to stay with her. When discussed at that that the patient would need to stay for at least 24 hours and be off the sitter, the patient lasted less than 45 minutes before writing a note saying that he would kill himself within the next few hours. The patient was placed back on a one-to-one sitter and the discharge plan was discontinued. The patient still reports continued suicidal thoughts, but is very disruptive and has difficulty with going to staff up to 10 times a day for minor and medial things NEW TEST RESULTS: None. CURRENT MEDICATIONS: See below. MENTAL STATUS EXAMINATION: General: [Well dressed with good hygiene] Speech: [Spontaneous and fluid] Thought processes: [Linear and logical] Thought content: Focused on small issues, such as paper Abstract reasoning, and computation: [Intact] Description of associations: [Intact] Description of abnormal or psychotic thoughts: Reports continued suicidal thoughts Judgment: Poor/limited Insight: Poor/limited Orientation: [Alert and orientated 3] Recent and remote memory: [Intact] Attention span and concentration: [Intact] Fund of knowledge: [Adequate] Mood: ["okay"] Affect: Somewhat more flat DIAGNOSES: 1. Unspecified impulse/conduct disorder. 2. Antisocial personality disorder/borderline personality disorder. 3. Bipolar disorder?. ASSESSMENT: Will attempt to see if residential placement is an option, given the patient's multiple readmissions and incredible number of presentations I feel that I have a good case to make for residential, the medication does not appear to have made much of a improvement other than a lack of coding which appears to be more on the side of the patient MANAGEMENT PLAN: Continue Vraylar at 3 mg daily TIME SPENT: 15 minutes. Vital Signs Vital Signs Date Time Temp Pulse Resp B/P (MAP) Pulse Ox O2 Delivery O2 Flow Rate FiO2 06/30/20 06:46 98.2 92 20 137/98 (111) 99 Room Air Current Medications Current Medications Medications (Trade) Dose Ordered Sig/Brielle Route PRN Reason Start Time Stop Time Status Last Admin Dose Admin Acetaminophen (Tylenol Tab) 650 mg Q6HP PRN PO HEADACHE or DISCOMFORT 06/17/20 23:00 06/19/20 14:54 Al Hydrox/Mg Hydrox/Simethicone (Mylanta) 30 ml Q4HP PRN PO HEARTBURN/INDIGESTION 06/17/20 23:00 06/30/20 17:21 Aripiprazole (AbiLIFY) 2 mg QHS PO 06/18/20 21:00 06/19/20 15:03 DC 06/18/20 22:52 Cariprazine (Vraylar) 1.5 mg DAILY PO 06/25/20 09:00 06/26/20 14:08 DC 06/26/20 10:14 Cariprazine (Vraylar) 3 mg DAILY PO 06/27/20 09:00 07/01/20 09:02 Cetirizine HCl (ZyrTEC) 10 mg DAILY PO 06/29/20 09:00 07/01/20 09:02 Chlorpromazine HCl (Thorazine) 50 mg Q6HP PRN PO AGITATION/Anxiety 06/29/20 16:00 06/29/20 17:05 Fluoxetine HCl (PROzac) 40 mg QAM PO 06/18/20 09:00 06/24/20 09:50 DC 06/24/20 09:43 Home Med (Med Rec Complete!) ASDIRECTED XX 06/17/20 21:30 06/17/20 21:18 DC Magnesium Hydroxide (Milk Of Magnesia) 30 ml DAILYPRN PRN PO CONSTIPATION 06/17/20 23:00 06/21/20 23:03 Olanzapine (ZyPREXA ZYDIS) 5 mg Q4HP PRN PO AGITATION 06/17/20 23:00 06/27/20 16:36 DC 06/26/20 20:06 Olanzapine (ZyPREXA ZYDIS) 10 mg Q4HP PRN PO AGITATION 06/27/20 16:45 06/29/20 15:55 DC 06/28/20 21:49 Topiramate (TopAMAX) 100 mg BID PO 06/18/20 21:00 07/01/20 09:02 Trazodone HCl (Desyrel) 50 mg QHSP PRN PO INSOMNIA 06/17/20 23:00 06/29/20 23:34 Allergies Coded Allergies: haloperidol (Verified Adverse Reaction, Intermediate, LOCKJAW, 01/03/20) Has required & received this med many time without EPS noted risperidone (Verified Adverse Reaction, Mild, PSORIASIS, 11/26/19) FELIX BUTCHER DO Jul 01, 2020 10:04
[2020-07-02] MEDS: CARIPRAZINE 3MG CAPSULE (VRAYLAR) PO SCH (09:41)
[2020-07-02] MEDS: CETIRIZINE (ZyrTEC) 10 MG TAB PO SCH (09:41)
[2020-07-02] MEDS: TOPIRAMATE (TopAMAX) 100 MG TAB PO SCH ×3 (09:41→22:20)
--- NOTE | 2020-07-02 10:33 | MHIPNPDOC ---
[facility] Progress Note Progress Note DATE OF SERVICE: 07/02/20 HISTORY: The patient is met with today, highly disruptive and difficult to redirect, the patient primarily focuses on getting attention due to the lack of other patients in the low senses. The patient has talked with about the difficulty of his situation and need to reengage with treatment, as the patient does not follow with behavioral plans and generally threatened suicide if attention is not given, difficult to redirect generally stressing staff out to the maximum, the patient continues to have little insight into his situation. NEW TEST RESULTS: None. CURRENT MEDICATIONS: See below. MENTAL STATUS EXAMINATION: General: [Well dressed with good hygiene] Speech: [Spontaneous and fluid] Thought processes: [Linear and logical] Thought content: focused on small things Abstract reasoning, and computation: [Intact] Description of associations: [Intact] Description of abnormal or psychotic thoughts: Reports continued suicidal thoughts Judgment: Poor/limited Insight: Poor/limited Orientation: [Alert and orientated 3] Recent and remote memory: [Intact] Attention span and concentration: [Intact] Fund of knowledge: [Adequate] Mood: ["okay"] Affect: elated DIAGNOSES: 1. Unspecified impulse/conduct disorder. 2. Antisocial personality disorder/borderline personality disorder. 3. Bipolar disorder?. ASSESSMENT: Will attempt to impress upon the patient the need to continue to reengage treatment and take responsibility for his safety MANAGEMENT PLAN: Continue Vraylar at 3 mg daily TIME SPENT: 15 minutes. Vital Signs Vital Signs Date Time Temp Pulse Resp B/P (MAP) Pulse Ox O2 Delivery O2 Flow Rate FiO2 06/30/20 06:46 98.2 92 20 137/98 (111) 99 Room Air Current Medications Current Medications Medications (Trade) Dose Ordered Sig/Brielle Route PRN Reason Start Time Stop Time Status Last Admin Dose Admin Acetaminophen (Tylenol Tab) 650 mg Q6HP PRN PO HEADACHE or DISCOMFORT 06/17/20 23:00 06/19/20 14:54 Al Hydrox/Mg Hydrox/Simethicone (Mylanta) 30 ml Q4HP PRN PO HEARTBURN/INDIGESTION 06/17/20 23:00 06/30/20 17:21 Aripiprazole (AbiLIFY) 2 mg QHS PO 06/18/20 21:00 06/19/20 15:03 DC 06/18/20 22:52 Cariprazine (Vraylar) 1.5 mg DAILY PO 06/25/20 09:00 06/26/20 14:08 DC 06/26/20 10:14 Cariprazine (Vraylar) 3 mg DAILY PO 06/27/20 09:00 07/02/20 09:41 Cetirizine HCl (ZyrTEC) 10 mg DAILY PO 06/29/20 09:00 07/02/20 09:41 Chlorpromazine HCl (Thorazine) 50 mg Q6HP PRN PO AGITATION/Anxiety 06/29/20 16:00 06/29/20 17:05 Fluoxetine HCl (PROzac) 40 mg QAM PO 06/18/20 09:00 06/24/20 09:50 DC 06/24/20 09:43 Home Med (Med Rec Complete!) ASDIRECTED XX 06/17/20 21:30 06/17/20 21:18 DC Magnesium Hydroxide (Milk Of Magnesia) 30 ml DAILYPRN PRN PO CONSTIPATION 06/17/20 23:00 06/21/20 23:03 Olanzapine (ZyPREXA ZYDIS) 5 mg Q4HP PRN PO AGITATION 06/17/20 23:00 06/27/20 16:36 DC 06/26/20 20:06 Olanzapine (ZyPREXA ZYDIS) 10 mg Q4HP PRN PO AGITATION 06/27/20 16:45 06/29/20 15:55 DC 06/28/20 21:49 Topiramate (TopAMAX) 100 mg BID PO 06/18/20 21:00 07/02/20 09:41 Trazodone HCl (Desyrel) 50 mg QHSP PRN PO INSOMNIA 06/17/20 23:00 06/29/20 23:34 Allergies Coded Allergies: haloperidol (Verified Adverse Reaction, Intermediate, LOCKJAW, 01/03/20) Has required & received this med many time without EPS noted risperidone (Verified Adverse Reaction, Mild, PSORIASIS, 11/26/19) FELIX BUTCHER DO Jul 02, 2020 10:33
[2020-07-02] MEDS: chlorproMAZINE 25 MG TABLET PO PRN (13:09)
--- NOTE | 2020-07-03 09:29 | MHIPNPDOC ---
[facility] Progress Note Progress Note DATE OF SERVICE: 07/03/20 HISTORY: Attempted to be with patient mobile times, however has appeared to get into a game of yelping and running away from, and smiling then subsequently re questing to meet and repeating multiple times. The patient has had difficulty being redirected, with difficulty with behaviors. NEW TEST RESULTS: None. CURRENT MEDICATIONS: See below. MENTAL STATUS EXAMINATION: General: [Well dressed with good hygiene] Speech: [Spontaneous and fluid] Thought processes: [Linear and logical] Thought content: focused on small things Abstract reasoning, and computation: [Intact] Description of associations: [Intact] Description of abnormal or psychotic thoughts: Reports continued suicidal thoughts Judgment: Poor/limited Insight: Poor/limited Orientation: [Alert and orientated 3] Recent and remote memory: [Intact] Attention span and concentration: [Intact] Fund of knowledge: [Adequate] Mood: Elated Affect: elated DIAGNOSES: 1. Unspecified impulse/conduct disorder. 2. Antisocial personality disorder/borderline personality disorder. 3. Bipolar disorder?. ASSESSMENT: We'll continue observation, potential sending to long-term [facility] psychiatric MANAGEMENT PLAN: Continue Vraylar at 3 mg daily TIME SPENT: 15 minutes. Vital Signs Vital Signs Date Time Temp Pulse Resp B/P (MAP) Pulse Ox O2 Delivery O2 Flow Rate FiO2 06/30/20 06:46 98.2 92 20 137/98 (111) 99 Room Air Current Medications Current Medications Medications (Trade) Dose Ordered Sig/Brielle Route PRN Reason Start Time Stop Time Status Last Admin Dose Admin Acetaminophen (Tylenol Tab) 650 mg Q6HP PRN PO HEADACHE or DISCOMFORT 06/17/20 23:00 06/19/20 14:54 Al Hydrox/Mg Hydrox/Simethicone (Mylanta) 30 ml Q4HP PRN PO HEARTBURN/INDIGESTION 06/17/20 23:00 06/30/20 17:21 Aripiprazole (AbiLIFY) 2 mg QHS PO 06/18/20 21:00 06/19/20 15:03 DC 06/18/20 22:52 Cariprazine (Vraylar) 1.5 mg DAILY PO 06/25/20 09:00 06/26/20 14:08 DC 06/26/20 10:14 Cariprazine (Vraylar) 3 mg DAILY PO 06/27/20 09:00 07/02/20 09:41 Cetirizine HCl (ZyrTEC) 10 mg DAILY PO 06/29/20 09:00 07/02/20 09:41 Chlorpromazine HCl (Thorazine) 50 mg Q6HP PRN PO AGITATION/Anxiety 06/29/20 16:00 07/02/20 13:09 Fluoxetine HCl (PROzac) 40 mg QAM PO 06/18/20 09:00 06/24/20 09:50 DC 06/24/20 09:43 Home Med (Med Rec Complete!) ASDIRECTED XX 06/17/20 21:30 06/17/20 21:18 DC Magnesium Hydroxide (Milk Of Magnesia) 30 ml DAILYPRN PRN PO CONSTIPATION 06/17/20 23:00 06/21/20 23:03 Olanzapine (ZyPREXA ZYDIS) 5 mg Q4HP PRN PO AGITATION 06/17/20 23:00 06/27/20 16:36 DC 06/26/20 20:06 Olanzapine (ZyPREXA ZYDIS) 10 mg Q4HP PRN PO AGITATION 06/27/20 16:45 06/29/20 15:55 DC 06/28/20 21:49 Topiramate (TopAMAX) 100 mg BID PO 06/18/20 21:00 07/02/20 22:20 Trazodone HCl (Desyrel) 50 mg QHSP PRN PO INSOMNIA 06/17/20 23:00 06/29/20 23:34 Allergies Coded Allergies: haloperidol (Verified Adverse Reaction, Intermediate, LOCKJAW, 01/03/20) Has required & received this med many time without EPS noted risperidone (Verified Adverse Reaction, Mild, PSORIASIS, 11/26/19) FELIX BUTCHER DO Jul 03, 2020 09:29
[2020-07-03] MEDS: TOPIRAMATE (TopAMAX) 100 MG TAB PO SCH ×2 (10:50→20:16)
[2020-07-03] MEDS: CETIRIZINE (ZyrTEC) 10 MG TAB PO SCH (10:50)
[2020-07-03] MEDS: CARIPRAZINE 3MG CAPSULE (VRAYLAR) PO SCH (10:50)
[2020-07-03 16:30] VITALS: BP 133/60
[2020-07-04] MEDS: TOPIRAMATE (TopAMAX) 100 MG TAB PO SCH ×2 (08:27→20:58)
[2020-07-04] MEDS: CETIRIZINE (ZyrTEC) 10 MG TAB PO SCH (08:27)
[2020-07-04] MEDS: CARIPRAZINE 3MG CAPSULE (VRAYLAR) PO SCH (08:27)
--- NOTE | 2020-07-04 10:38 | MHIPNPDOC ---
[facility] Progress Note Progress Note DATE OF SERVICE: 07/04/20 HISTORY: Attempted to meet with patient today, however became agitated and behaviorally problematic, patient was warned that continued problematic behavior constituted her visit for today, she became upset and had to be redirected multiple times. She attempted some self-harm with very subjects and have her room strip, given the behavioral plan the patient had requested to meet however met with the nurse, patient otherwise didn't engage afterwards. NEW TEST RESULTS: None. CURRENT MEDICATIONS: See below. MENTAL STATUS EXAMINATION: General: Poor hygiene Speech: [Spontaneous and fluid] Thought processes: [Linear and logical] Thought content: focused on small things Abstract reasoning, and computation: [Intact] Description of associations: [Intact] Description of abnormal or psychotic thoughts: Reports continued suicidal thoughts Judgment: Poor/limited Insight: Poor/limited Orientation: [Alert and orientated 3] Recent and remote memory: [Intact] Attention span and concentration: [Intact] Fund of knowledge: [Adequate] Mood: Labile Affect: elated DIAGNOSES: 1. Unspecified impulse/conduct disorder. 2. Antisocial personality disorder/borderline personality disorder. 3. Bipolar disorder?. ASSESSMENT: We'll continue observation, behavioral plan is not to feed into patient's behaviors such as becoming upset and him getting more attention, the patient will likely do well at [facility] and will need to coordinate this potentially complex transfer MANAGEMENT PLAN: Continue Vraylar at 3 mg daily TIME SPENT: 15 minutes. Vital Signs Vital Signs Date Time Temp Pulse Resp B/P (MAP) Pulse Ox O2 Delivery O2 Flow Rate FiO2 07/03/20 16:30 98.0 83 15 133/60 (84) 100 Room Air Current Medications Current Medications Medications (Trade) Dose Ordered Sig/Brielle Route PRN Reason Start Time Stop Time Status Last Admin Dose Admin Acetaminophen (Tylenol Tab) 650 mg Q6HP PRN PO HEADACHE or DISCOMFORT 06/17/20 23:00 06/19/20 14:54 Al Hydrox/Mg Hydrox/Simethicone (Mylanta) 30 ml Q4HP PRN PO HEARTBURN/INDIGESTION 06/17/20 23:00 06/30/20 17:21 Aripiprazole (AbiLIFY) 2 mg QHS PO 06/18/20 21:00 06/19/20 15:03 DC 06/18/20 22:52 Cariprazine (Vraylar) 1.5 mg DAILY PO 06/25/20 09:00 06/26/20 14:08 DC 06/26/20 10:14 Cariprazine (Vraylar) 3 mg DAILY PO 06/27/20 09:00 07/04/20 08:27 Cetirizine HCl (ZyrTEC) 10 mg DAILY PO 06/29/20 09:00 07/04/20 08:27 Chlorpromazine HCl (Thorazine) 50 mg Q6HP PRN PO AGITATION/Anxiety 06/29/20 16:00 07/02/20 13:09 Fluoxetine HCl (PROzac) 40 mg QAM PO 06/18/20 09:00 06/24/20 09:50 DC 06/24/20 09:43 Home Med (Med Rec Complete!) ASDIRECTED XX 06/17/20 21:30 06/17/20 21:18 DC Magnesium Hydroxide (Milk Of Magnesia) 30 ml DAILYPRN PRN PO CONSTIPATION 06/17/20 23:00 06/21/20 23:03 Olanzapine (ZyPREXA ZYDIS) 5 mg Q4HP PRN PO AGITATION 06/17/20 23:00 06/27/20 16:36 DC 06/26/20 20:06 Olanzapine (ZyPREXA ZYDIS) 10 mg Q4HP PRN PO AGITATION 06/27/20 16:45 06/29/20 15:55 DC 06/28/20 21:49 Topiramate (TopAMAX) 100 mg BID PO 06/18/20 21:00 07/04/20 08:27 Trazodone HCl (Desyrel) 50 mg QHSP PRN PO INSOMNIA 06/17/20 23:00 06/29/20 23:34 Allergies Coded Allergies: haloperidol (Verified Adverse Reaction, Intermediate, LOCKJAW, 01/03/20) Has required & received this med many time without EPS noted risperidone (Verified Adverse Reaction, Mild, PSORIASIS, 11/26/19) FELIX BUTCHER DO Jul 04, 2020 10:37
[2020-07-04] MEDS: chlorproMAZINE 25 MG TABLET PO PRN ×2 (11:52→21:52)
[2020-07-05] MEDS: CETIRIZINE (ZyrTEC) 10 MG TAB PO SCH (09:25)
[2020-07-05] MEDS: CARIPRAZINE 3MG CAPSULE (VRAYLAR) PO SCH (09:25)
[2020-07-05] MEDS: TOPIRAMATE (TopAMAX) 100 MG TAB PO SCH ×2 (09:25→21:00)
[2020-07-06] MEDS: CARIPRAZINE 3MG CAPSULE (VRAYLAR) PO SCH (08:48)
[2020-07-06] MEDS: TOPIRAMATE (TopAMAX) 100 MG TAB PO SCH ×3 (08:48→21:56)
[2020-07-06] MEDS: CETIRIZINE (ZyrTEC) 10 MG TAB PO SCH (08:48)
--- NOTE | 2020-07-06 12:12 | IPN ---
PROGRESS NOTE DATE: 07/05/2020 I was asked to see the patient. She is on a one-on-one observation. She initially agreed, was irritable, and then declined to see me. She was also waiting for lunch at the time. She said she did not intend seeing the doctor on . Has had periods of agitation, as detailed in the staff notes. We will continue with current observation, including one-on-one observation.
--- NOTE | 2020-07-06 12:34 | IPN ---
PROGRESS NOTE DATE: 07/06/2020 SUBJECTIVE: Due to see her today, this is in the morning and she is, I am informed, fast asleep. Given that there has been visual disturbances, but less prominent, less acutely last evening and this morning, I will opt not wake her up to be seen. PLAN: Will continue with current observations including one-on-one observations and further recommendations will be made depending on the clinical picture. Will see her later if possible.
[2020-07-06] MEDS: MAALOX 30 ML SUSP *UDC PO PRN (20:22)
[2020-07-06] MEDS ORDERED: OLANZapine ORAL DISINTEGRATING TAB 5MG PO ONE (21:45)
[2020-07-07] MEDS: CARIPRAZINE 3MG CAPSULE (VRAYLAR) PO SCH (09:25)
[2020-07-07] MEDS: CETIRIZINE (ZyrTEC) 10 MG TAB PO SCH (09:25)
[2020-07-07] MEDS: TOPIRAMATE (TopAMAX) 100 MG TAB PO SCH ×2 (09:26→21:00)
--- NOTE | 2020-07-07 20:02 | MHIPN ---
[facility] PROGRESS NOTE DATE: 07/07/2020 VITAL SIGNS: Blood pressure 133/60, pulse 83, temperature 98. CHIEF COMPLAINT: Says feels okay. SUBJECTIVE: Seen for followup, in the presence of staff. Says feels okay, had been somewhat agitated last night. Says this morning has been okay. She is also a bit upset as to why there were staff members with me, when seeing her. The purpose of their presence was explained. Says had slept well last night, has been eating okay, was attending the activity group just before she was seeing me. She says she was made aware of an incident from the past, says that has impacted her here, she did not go into details, and suggests that she would wish to be transferred to another hospital. She also indicated that somebody here may be trying to obtain an order of protection against her. She says she feels uncomfortable, as a result. MENTAL STATUS EXAMINATION: She is neat, guarded, somewhat superficially cooperative. No agitation, no psychomotor retardation, but when walking down the corridor, towards her room, when I saw her with the other staff members, somewhat loud, inquiring as to why everything has to be "so dramatic." No thought disorder, denied any thoughts of harming herself or anyone else at present, no evidence of any psychosis. Cognition grossly intact. Judgment and insight remain compromised. ASSESSMENT: Bipolar disorder by history. Borderline personality disorder, with antisocial personality traits. There is the further complication of an impulsive conduct disorder. PLAN: Continue current care, including one-on-one observations. Given the patient's request, I would suggest that the transfer to another facility is explored, when feasible. Today is Wednesday, it is unlikely this will happen today, and staff is made aware of the patient's request, so relevant staff, as well as discharge planning, may be able to initiate this as soon as it is feasible. Further recommendations will be made depending on the clinical picture, when she sees the assigned clinician tomorrow.
[2020-07-07] MEDS ORDERED: OLANZapine ORAL DISINTEGRATING TAB 5MG PO ONE (22:00)
[2020-07-08] MEDS: TOPIRAMATE (TopAMAX) 100 MG TAB PO SCH ×3 (09:37→20:58)
[2020-07-08] MEDS: CETIRIZINE (ZyrTEC) 10 MG TAB PO SCH (09:37)
[2020-07-08] MEDS: CARIPRAZINE 3MG CAPSULE (VRAYLAR) PO SCH (09:37)
[2020-07-08] MEDS: MAALOX 30 ML SUSP *UDC PO PRN ×2 (10:13→22:19)
--- NOTE | 2020-07-08 10:24 | MHIPNPDOC ---
[facility] Progress Note Progress Note DATE OF SERVICE: 07/08/20 HISTORY: The patient is met with today, the patient continues to be fairly intrusive and generally bothersome throughout the day, through a barrage of continual questions, redirection appears ineffective. The patient generally continues to play games with the staff and generally engages in behavior in order to get attention. She generally hasn't been able to be redirected effectively and when met with she spends the majority of the time asking personal questions resisting redirection. The patient generally continues to ask about when she is being met with, and then when she is attempting that when she continues to ask about these questions of which have been deemed an appropriate and she continues to ask. She generally has been difficult to work with and interrupts the staff frequently, with very small questions framing them as "emergencies". NEW TEST RESULTS: None. CURRENT MEDICATIONS: See below. MENTAL STATUS EXAMINATION: General: Poor hygiene Speech: [Spontaneous and fluid] Thought processes: [Linear and logical] Thought content: focused on small things Abstract reasoning, and computation: [Intact] Description of associations: [Intact] Description of abnormal or psychotic thoughts: Inconsistent suicidal thoughts communicated to staff Judgment: Poor/limited Insight: Poor/limited Orientation: [Alert and orientated 3] Recent and remote memory: [Intact] Attention span and concentration: [Intact] Fund of knowledge: [Adequate] Mood: Labile Affect: elated DIAGNOSES: 1. Unspecified impulse/conduct disorder. 2. Antisocial personality disorder/borderline personality disorder. 3. Bipolar disorder?. ASSESSMENT: We'll continue with transfer to [facility] if able to, as this is one the few facilities that would accept them, the behavioral problems continue without much redirection in the one-to-one sitter will continue to be need to be present due to the self-harm behavior although moderate there likely more at risk to cause damage themselves accidentally MANAGEMENT PLAN: Continue Vraylar at 3 mg daily TIME SPENT: 15 minutes. Vital Signs Vital Signs Date Time Temp Pulse Resp B/P (MAP) Pulse Ox O2 Delivery O2 Flow Rate FiO2 07/03/20 16:30 98.0 83 15 133/60 (84) 100 Room Air Current Medications Current Medications Medications (Trade) Dose Ordered Sig/Brielle Route PRN Reason Start Time Stop Time Status Last Admin Dose Admin Acetaminophen (Tylenol Tab) 650 mg Q6HP PRN PO HEADACHE or DISCOMFORT 06/17/20 23:00 06/19/20 14:54 Al Hydrox/Mg Hydrox/Simethicone (Mylanta) 30 ml Q4HP PRN PO HEARTBURN/INDIGESTION 06/17/20 23:00 07/08/20 10:13 Aripiprazole (AbiLIFY) 2 mg QHS PO 06/18/20 21:00 06/19/20 15:03 DC 06/18/20 22:52 Cariprazine (Vraylar) 1.5 mg DAILY PO 06/25/20 09:00 06/26/20 14:08 DC 06/26/20 10:14 Cariprazine (Vraylar) 3 mg DAILY PO 06/27/20 09:00 07/08/20 09:37 Cetirizine HCl (ZyrTEC) 10 mg DAILY PO 06/29/20 09:00 07/08/20 09:37 Chlorpromazine HCl (Thorazine) 50 mg Q6HP PRN PO AGITATION/Anxiety 06/29/20 16:00 07/04/20 21:52 Fluoxetine HCl (PROzac) 40 mg QAM PO 06/18/20 09:00 06/24/20 09:50 DC 06/24/20 09:43 Home Med (Med Rec Complete!) ASDIRECTED XX 06/17/20 21:30 06/17/20 21:18 DC Magnesium Hydroxide (Milk Of Magnesia) 30 ml DAILYPRN PRN PO CONSTIPATION 06/17/20 23:00 06/21/20 23:03 Olanzapine (ZyPREXA ZYDIS) 5 mg Q4HP PRN PO AGITATION 06/17/20 23:00 06/27/20 16:36 DC 06/26/20 20:06 Olanzapine (ZyPREXA ZYDIS) 10 mg Q4HP PRN PO AGITATION 06/27/20 16:45 06/29/20 15:55 DC 06/28/20 21:49 Topiramate (TopAMAX) 100 mg BID PO 06/18/20 21:00 07/08/20 09:37 Trazodone HCl (Desyrel) 50 mg QHSP PRN PO INSOMNIA 06/17/20 23:00 06/29/20 23:34 Allergies Coded Allergies: haloperidol (Verified Adverse Reaction, Intermediate, LOCKJAW, 01/03/20) Has required & received this med many time without EPS noted risperidone (Verified Adverse Reaction, Mild, PSORIASIS, 11/26/19) FELIX BUTCHER DO Jul 08, 2020 10:24
[2020-07-08] MEDS ORDERED: ONDANSETRON 4 MG ORAL DISINTEGRATING TAB PO ONE (12:30)
[2020-07-08] MEDS ORDERED: OLANZapine ORAL DISINTEGRATING TAB 5MG PO ONE (13:00)
[2020-07-08 18:05] VITALS: BP 124/84
[2020-07-08] MEDS: chlorproMAZINE 25 MG TABLET PO PRN (20:45)
[2020-07-08] MEDS ORDERED: chlorproMAZINE 25 MG TABLET PO ONE (21:15)
--- NOTE | 2020-07-09 10:29 | MHIPNPDOC ---
[facility] Progress Note Progress Note DATE OF SERVICE: 07/09/20 HISTORY: The patient's met with multiple times a day, generally the patient is quite derogatory and insulting to her nurse, when met with the patient reported that they didn't want take the medication and would only take it from time to time, generally yelling and swearing for most part during the day whenever confronted about any difficulties. The patient is made little progress, they report that there is no specific reason why they don't take medication other than it want to. The patient still is on a one-to-one sitter and has difficulty maintaining safety, reporting suicidal thoughts to various individuals all denying them to others. The patient requires an extraordinary amount of redirection continually threatening staff to either report them or attack them whenever their needs are not immediately met NEW TEST RESULTS: None. CURRENT MEDICATIONS: See below. MENTAL STATUS EXAMINATION: General: Poor hygiene Speech: [Spontaneous and fluid] Thought processes: [Linear and logical] Thought content: focused on small things Abstract reasoning, and computation: [Intact] Description of associations: [Intact] Description of abnormal or psychotic thoughts: Inconsistent suicidal thoughts communicated to staff Judgment: Poor/limited Insight: Poor/limited Orientation: [Alert and orientated 3] Recent and remote memory: [Intact] Attention span and concentration: [Intact] Fund of knowledge: [Adequate] Mood: Labile Affect: elated DIAGNOSES: 1. Unspecified impulse/conduct disorder. 2. Antisocial personality disorder/borderline personality disorder. 3. Bipolar disorder?. ASSESSMENT: We'll continue with referral for [facility] psychiatric, but transfer will be complicated a sign on the left parietal be leaving the system after this week MANAGEMENT PLAN: Continue Vraylar at 3 mg daily, continue to offer although patient is pre-contemplative about change, we'll continue the one-to-one sitter for safety both for the patient and others TIME SPENT: 15 minutes. Vital Signs Vital Signs Date Time Temp Pulse Resp B/P (MAP) Pulse Ox O2 Delivery O2 Flow Rate FiO2 07/08/20 18:05 98.0 98 18 124/84 (97) 99 07/03/20 16:30 Room Air Current Medications Current Medications Medications (Trade) Dose Ordered Sig/Brielle Route PRN Reason Start Time Stop Time Status Last Admin Dose Admin Acetaminophen (Tylenol Tab) 650 mg Q6HP PRN PO HEADACHE or DISCOMFORT 12/7/20 23:00 06/19/20 14:54 Al Hydrox/Mg Hydrox/Simethicone (Mylanta) 30 ml Q4HP PRN PO HEARTBURN/INDIGESTION 06/17/20 23:00 07/08/20 22:19 Aripiprazole (AbiLIFY) 2 mg QHS PO 06/18/20 21:00 06/19/20 15:03 DC 06/18/20 22:52 Cariprazine (Vraylar) 1.5 mg DAILY PO 06/25/20 09:00 06/26/20 14:08 DC 06/26/20 10:14 Cariprazine (Vraylar) 3 mg DAILY PO 06/27/20 09:00 07/08/20 09:37 Cetirizine HCl (ZyrTEC) 10 mg DAILY PO 06/29/20 09:00 07/08/20 09:37 Chlorpromazine HCl (Thorazine) 50 mg Q6HP PRN PO AGITATION/Anxiety 06/29/20 16:00 07/08/20 20:45 Fluoxetine HCl (PROzac) 40 mg QAM PO 06/18/20 09:00 06/24/20 09:50 DC 06/24/20 09:43 Home Med (Med Rec Complete!) ASDIRECTED XX 06/17/20 21:30 06/17/20 21:18 DC Magnesium Hydroxide (Milk Of Magnesia) 30 ml DAILYPRN PRN PO CONSTIPATION 06/17/20 23:00 06/21/20 23:03 Olanzapine (ZyPREXA ZYDIS) 5 mg Q4HP PRN PO AGITATION 06/17/20 23:00 06/27/20 16:36 DC 06/26/20 20:06 Olanzapine (ZyPREXA ZYDIS) 10 mg Q4HP PRN PO AGITATION 06/27/20 16:45 06/29/20 15:55 DC 06/28/20 21:49 Topiramate (TopAMAX) 100 mg BID PO 06/18/20 21:00 07/08/20 20:58 Trazodone HCl (Desyrel) 50 mg QHSP PRN PO INSOMNIA 06/17/20 23:00 12/19/20 23:34 Allergies Coded Allergies: haloperidol (Verified Adverse Reaction, Intermediate, LOCKJAW, 01/03/20) Has required & received this med many time without EPS noted risperidone (Verified Adverse Reaction, Mild, PSORIASIS, 11/26/19) FELIX BUTCHER DO Jul 09, 2020 10:29
[2020-07-09] MEDS: TOPIRAMATE (TopAMAX) 100 MG TAB PO SCH ×2 (11:45→21:07)
[2020-07-09] MEDS: CETIRIZINE (ZyrTEC) 10 MG TAB PO SCH (11:45)
[2020-07-09] MEDS: CARIPRAZINE 3MG CAPSULE (VRAYLAR) PO SCH (11:45)
[2020-07-09] MEDS: ACETAMINOPHEN TAB 650MG DOSE (2X325MG) PO PRN ×2 (14:05→23:26)
[2020-07-09] MEDS ORDERED: OLANZapine ORAL DISINTEGRATING TAB 5MG PO ONE (23:15)
[2020-07-10] MEDS: TOPIRAMATE (TopAMAX) 100 MG TAB PO SCH ×2 (09:14→21:00)
[2020-07-10] MEDS: CARIPRAZINE 3MG CAPSULE (VRAYLAR) PO SCH (09:14)
[2020-07-10] MEDS: CETIRIZINE (ZyrTEC) 10 MG TAB PO SCH (09:14)
[2020-07-10] MEDS: chlorproMAZINE 25 MG TABLET PO PRN ×2 (10:13→19:13)
[2020-07-10] MEDS: ACETAMINOPHEN TAB 650MG DOSE (2X325MG) PO PRN ×2 (10:49→22:59)
--- NOTE | 2020-07-10 11:35 | MHIPNPDOC ---
[facility] Progress Note Progress Note DATE OF SERVICE: 07/10/20 HISTORY: The patient is met with multiple times throughout the day, still has fairly poor insight, with behavioral problems being upset whenever her straight even mildly. The patient takes multiple episodes to redirect, but did try some when necessary Thorazine which had been quite helpful, the patient felt improved in was more able to engage. Patient reports difficulty with stomach cramps and some protein with pain, she was thankful for some medications but generally becomes upset and irritable if she is not given a fairly extensive amount of attention and time. NEW TEST RESULTS: None. CURRENT MEDICATIONS: See below. MENTAL STATUS EXAMINATION: General: Poor hygiene Speech: [Spontaneous and fluid] Thought processes: [Linear and logical] Thought content: focused on small things Abstract reasoning, and computation: [Intact] Description of associations: [Intact] Description of abnormal or psychotic thoughts: Inconsistent suicidal thoughts communicated to staff Judgment: Poor/limited Insight: Poor/limited Orientation: [Alert and orientated 3] Recent and remote memory: [Intact] Attention span and concentration: [Intact] Fund of knowledge: [Adequate] Mood: Labile Affect: elated DIAGNOSES: 1. Unspecified impulse/conduct disorder. 2. Antisocial personality disorder/borderline personality disorder. 3. Bipolar disorder?. ASSESSMENT: We will continue to look at long-term, however there appears to been a opinion serve to us relating to a charge levied against her by reportedly a staff member, we'll see about lateral transfer as it creates a significant conflict interest MANAGEMENT PLAN: Continue Vraylar at 3 mg daily, encouraged the use of when necessary Thorazine as it appears to still have quite a bit of an affect on her grieving her greatly. TIME SPENT: 15 minutes. Vital Signs Vital Signs Date Time Temp Pulse Resp B/P (MAP) Pulse Ox O2 Delivery O2 Flow Rate FiO2 07/08/20 18:05 98.0 98 18 124/84 (97) 99 Current Medications Current Medications Medications (Trade) Dose Ordered Sig/Brielle Route PRN Reason Start Time Stop Time Status Last Admin Dose Admin Acetaminophen (Tylenol Tab) 650 mg Q6HP PRN PO HEADACHE or DISCOMFORT 06/17/20 23:00 07/10/20 10:49 Al Hydrox/Mg Hydrox/Simethicone (Mylanta) 30 ml Q4HP PRN PO HEARTBURN/INDIGESTION 06/17/20 23:00 12/28/20 22:19 Aripiprazole (AbiLIFY) 2 mg QHS PO 06/18/20 21:00 06/19/20 15:03 DC 06/18/20 22:52 Cariprazine (Vraylar) 1.5 mg DAILY PO 06/25/20 09:00 06/26/20 14:08 DC 06/26/20 10:14 Cariprazine (Vraylar) 3 mg DAILY PO 06/27/20 09:00 07/10/20 09:14 Cetirizine HCl (ZyrTEC) 10 mg DAILY PO 06/29/20 09:00 07/10/20 09:14 Chlorpromazine HCl (Thorazine) 50 mg Q6HP PRN PO AGITATION/Anxiety 06/29/20 16:00 07/10/20 10:13 Fluoxetine HCl (PROzac) 40 mg QAM PO 06/18/20 09:00 06/24/20 09:50 DC 06/24/20 09:43 Home Med (Med Rec Complete!) ASDIRECTED XX 06/17/20 21:30 06/17/20 21:18 DC Magnesium Hydroxide (Milk Of Magnesia) 30 ml DAILYPRN PRN PO CONSTIPATION 06/17/20 23:00 06/21/20 23:03 Olanzapine (ZyPREXA ZYDIS) 5 mg Q4HP PRN PO AGITATION 06/17/20 23:00 06/27/20 16:36 DC 06/26/20 20:06 Olanzapine (ZyPREXA ZYDIS) 10 mg Q4HP PRN PO AGITATION 06/27/20 16:45 06/29/20 15:55 DC 06/28/20 21:49 Topiramate (TopAMAX) 100 mg BID PO 06/18/20 21:00 07/10/20 09:14 Trazodone HCl (Desyrel) 50 mg QHSP PRN PO INSOMNIA 06/17/20 23:00 06/29/20 23:34 Allergies Coded Allergies: haloperidol (Verified Adverse Reaction, Intermediate, LOCKJAW, 01/03/20) Has required & received this med many time without EPS noted risperidone (Verified Adverse Reaction, Mild, PSORIASIS, 11/26/19) FELIX BUTCHER DO Jul 10, 2020 11:35
[2020-07-10] MEDS ORDERED: NAPROXEN 250 MG TAB PO PRN (14:00)
[2020-07-10] MEDS ORDERED: TUBERCULIN PPD 5 UNITS/0.1 ML ID ONE (14:00)
[2020-07-10] MEDS ORDERED: PPD DOCUMENTATION ENTRY MISC XX ONE (14:00)
--- NOTE | 2020-07-10 17:20 | REP ---
INDICATION: R foot pain COMPARISON: None. TECHNIQUE: AP, lateral, bilateral oblique views right foot. FINDINGS: The osseous structures and joint spaces are intact and normal. There is no evidence for acute fracture or dislocation. Surrounding soft tissues are unremarkable. No subcutaneous emphysema or radiodense foreign body. IMPRESSION: Normal right foot series. <Electronically signed by Al Manriquez > 07/10/20 [id number]
[2020-07-10 18:10] VITALS: BP 138/84
[2020-07-11] MEDS: CETIRIZINE (ZyrTEC) 10 MG TAB PO SCH (10:25)
[2020-07-11] MEDS: CARIPRAZINE 3MG CAPSULE (VRAYLAR) PO SCH (10:25)
[2020-07-11] MEDS: TOPIRAMATE (TopAMAX) 100 MG TAB PO SCH ×2 (10:25→19:35)
[2020-07-11] MEDS: chlorproMAZINE 25 MG TABLET PO PRN ×2 (10:28→19:36)
--- NOTE | 2020-07-11 10:58 | MHIPNPDOC ---
[facility] Progress Note Progress Note DATE OF SERVICE: 07/11/20 HISTORY:The patient is met with multiple times, primarily fixates on this provider, reports that they have tried the Thorazine and its helpful, with much less agitation. Earlier in the day the patient came much agitated and upset, at various small frustrations. As the evening went on the patient was more patient, it appears more common that the patient after taking some Thorazine becomes much more calm. The patient still has behavioral issues but they are much less intense and more controllable after they take the Thorazine, discussed this with them stating that medicine may be useful. The patient was rejected from [facility] for a lateral transfer as the patient requested due to the reported concerns of a charge against them. NEW TEST RESULTS: None. CURRENT MEDICATIONS: See below. MENTAL STATUS EXAMINATION: General: Poor hygiene Speech: [Spontaneous and fluid] Thought processes: [Linear and logical] Thought content: focused on small things Abstract reasoning, and computation: [Intact] Description of associations: [Intact] Description of abnormal or psychotic thoughts: Inconsistent suicidal thoughts communicated to staff Judgment: Poor/limited Insight: Poor/limited Orientation: [Alert and orientated 3] Recent and remote memory: [Intact] Attention span and concentration: [Intact] Fund of knowledge: [Adequate] Mood: Labile Affect: elated DIAGNOSES: 1. Unspecified impulse/conduct disorder. 2. Antisocial personality disorder/borderline personality disorder. 3. Bipolar disorder?. ASSESSMENT:Recommend to continue looked long-term treatment as readmission risk is fairly high MANAGEMENT PLAN: Continue Vraylar at 3 mg daily, Continuing to advocate the use of Thorazine as needed's TIME SPENT: 15 minutes. Vital Signs Vital Signs Date Time Temp Pulse Resp B/P (MAP) Pulse Ox O2 Delivery O2 Flow Rate FiO2 07/10/20 18:10 98.1 85 16 138/84 (102) 95 Room Air Current Medications Current Medications Medications (Trade) Dose Ordered Sig/Brielle Route PRN Reason Start Time Stop Time Status Last Admin Dose Admin Acetaminophen (Tylenol Tab) 650 mg Q6HP PRN PO HEADACHE or DISCOMFORT 06/17/20 23:00 07/10/20 22:59 Al Hydrox/Mg Hydrox/Simethicone (Mylanta) 30 ml Q4HP PRN PO HEARTBURN/INDIGESTION 06/17/20 23:00 07/08/20 22:19 Aripiprazole (AbiLIFY) 2 mg QHS PO 06/18/20 21:00 06/19/20 15:03 DC 06/18/20 22:52 Cariprazine (Vraylar) 1.5 mg DAILY PO 06/25/20 09:00 06/26/20 14:08 DC 06/26/20 10:14 Cariprazine (Vraylar) 3 mg DAILY PO 06/27/20 09:00 07/11/20 10:25 Cetirizine HCl (ZyrTEC) 10 mg DAILY PO 06/29/20 09:00 07/11/20 10:25 Chlorpromazine HCl (Thorazine) 50 mg Q6HP PRN PO AGITATION/Anxiety 06/29/20 16:00 07/11/20 10:28 Fluoxetine HCl (PROzac) 40 mg QAM PO 06/18/20 09:00 06/24/20 09:50 DC 06/24/20 09:43 Home Med (Med Rec Complete!) ASDIRECTED XX 06/17/20 21:30 06/17/20 21:18 DC Magnesium Hydroxide (Milk Of Magnesia) 30 ml DAILYPRN PRN PO CONSTIPATION 06/17/20 23:00 06/21/20 23:03 Naproxen (Naprosyn) 250 mg Q12HP PRN PO PAIN OR DISCOMFORT 07/10/20 14:00 07/10/20 14:12 Olanzapine (ZyPREXA ZYDIS) 5 mg Q4HP PRN PO AGITATION 06/17/20 23:00 06/27/20 16:36 DC 06/26/20 20:06 Olanzapine (ZyPREXA ZYDIS) 10 mg Q4HP PRN PO AGITATION 06/27/20 16:45 06/29/20 15:55 DC 06/28/20 21:49 Topiramate (TopAMAX) 100 mg BID PO 06/18/20 21:00 07/11/20 10:25 Trazodone HCl (Desyrel) 50 mg QHSP PRN PO INSOMNIA 06/17/20 23:00 06/29/20 23:34 Allergies Coded Allergies: haloperidol (Verified Adverse Reaction, Intermediate, LOCKJAW, 01/03/20) Has required & received this med many time without EPS noted risperidone (Verified Adverse Reaction, Mild, PSORIASIS, 11/26/19) FELIX BUTCHER DO Jul 11, 2020 10:58
--- NOTE | 2020-07-11 15:39 | HPEPDOC ---
[facility] Medical History & Physical Date of Admission Jun 17, 2020 Date of Service: Jul 11, 2020 History and Physical Chief complaint: Who presented to [facility] after experiencing suicidal thoughts History of present illness: Patient is 19-year-old female with no significant past medical history who presented to the emergency room after experiencing suicidal thoughts. Patient was admitted to the inpatient mental health unit under the care of psychiatry. Hospital services consulted initially, however, patient had refused to talk with the initial hospitalist. Patient was noted to experience right foot numbness and tingling on 07/10 and hospitalist service was called again for reevaluation. She reports that they have been able to ambulate without any difficulty. Of note, patient has been ambulating without any socks and walking around barefoot throughout the halls. Currently patient denies any chest pain, short of breath, palpitations, nausea, vomiting, abdominal pain consultation, diarrhea, or urinary discomfort. She has not experienced any fevers or chills. Reports her appetite is fairly normal. Past Medical History: Multiple suicidal attempts with chemicals and medications Borderline personality disorder Antisocial personality disorder Depression Bipolar disorder Morbid obesity Past Surgical History: No prior surgeries Allergies: See below Medications: See below Family History: - No history of malignancies Social History: - Denies the use of alcohol, tobacco or illicit drugs - Denies recent travel or sick contacts - Patient reports that she lives alone and is homeless - Occupation; on disability Review of Systems: 10 point review of systems complete, all negative otherwise stated in HPI Physical exam: - Vitals: BP [138/84], HR [85], RR [16], Sat [95%RA], Temp [98.1F] - General: Lying in bed, Speaking in full sentences, AAOx3 - HEENT: NC, AT, PERRLA - CVS: RRR, +S1S2 - Lungs: Fair air entry bilaterally, No appreciable wheezing / rales / rhonchi - Abdomen: Soft, Non-distended, Non-tender - Extremities: No lower extremity edema, No calf tenderness - Neuro: No focal motor or sensory deficit - Skin: Bilateral feet with multiple calluses on bases; no evidence of erythema / warmth / discharge / tenderness; capillary refill intact bilaterally, strength normal / sensation intact Labs: See below Imaging: XR Foot 07/10: Normal right foot series. EKG: See below Assessment and Plan: Foot pain / sensation change - Patient reported her foot felt weird - Patient has been hemodynamically stable and afebrile - Physical exam does not reveal any focal neurologic deficits; range of motion intact of right foot. Sensation intact - Physical without any evidence of cellulitis or infection - Imaging noted above - Patient has been advised to continue appropriate hygiene of her foot and to avoid walking around barefoot in the hallways Multiple suicidal attempts with chemicals and medications - Borderline personality disorder / Antisocial personality disorder / Depression / Bipolar disorder - Currently admitted to [facility], managed by psychiatry Morbid obesity - BMI of 44 - Complicating medical care DVT prophylaxis - Will c/w early ambulation Female cat breeder was present at the duration of his history and physical examination Thank you for this consultation; hospital service will now sign off; please re- consult as needed Vital Signs Vital Signs Date Time Temp Pulse Resp B/P (MAP) Pulse Ox O2 Delivery O2 Flow Rate FiO2 07/10/20 18:10 98.1 85 16 138/84 (102) 95 Room Air Home Medications Scheduled Aripiprazole (Aripiprazole) 2 Mg Tablet, 2 MG PO DAILY Diazepam (Diazepam) 5 Mg Tablet, 5 MG PO BID Fluoxetine Hcl (Fluoxetine HCl) 40 Mg Capsule, 40 MG PO DAILY Mirtazapine (Remeron) 30 Mg Tablet, 30 MG PO QHS Topiramate (Topiramate) 100 Mg Tablet, 100 MG PO BID Scheduled PRN Hydroxyzine HCl (Hydroxyzine HCl) 50 Mg Tablet, 50 MG PO BID PRN for ANXIETY Allergies Coded Allergies: haloperidol (Verified Adverse Reaction, Intermediate, LOCKJAW, 01/03/20) Has required & received this med many time without EPS noted risperidone (Verified Adverse Reaction, Mild, PSORIASIS, 11/26/19) DANI HART MD Jul 11, 2020 15:39
[2020-07-11 17:30] VITALS: BP 140/71
[2020-07-11] MEDS: OLANZapine ORAL DISINTEGRATING TAB 5MG PO PRN (23:14)
[2020-07-12] MEDS: TOPIRAMATE (TopAMAX) 100 MG TAB PO SCH ×2 (09:40→21:14)
[2020-07-12] MEDS: CETIRIZINE (ZyrTEC) 10 MG TAB PO SCH (09:40)
[2020-07-12] MEDS: CARIPRAZINE 3MG CAPSULE (VRAYLAR) PO SCH (09:40)
[2020-07-12] MEDS: ACETAMINOPHEN TAB 650MG DOSE (2X325MG) PO PRN (17:51)
[2020-07-12] MEDS: traZODone 50 MG TAB PO PRN (21:14)
[2020-07-13] MEDS: TOPIRAMATE (TopAMAX) 100 MG TAB PO SCH ×2 (09:02→20:44)
[2020-07-13] MEDS: CETIRIZINE (ZyrTEC) 10 MG TAB PO SCH (09:02)
[2020-07-13] MEDS: CARIPRAZINE 3MG CAPSULE (VRAYLAR) PO SCH (09:02)
[2020-07-13] MEDS: chlorproMAZINE 25 MG TABLET PO PRN (11:46)
[2020-07-13 18:00] VITALS: BP 154/87
[2020-07-14] MEDS: CARIPRAZINE 3MG CAPSULE (VRAYLAR) PO SCH (08:04)
[2020-07-14] MEDS: TOPIRAMATE (TopAMAX) 100 MG TAB PO SCH ×3 (08:04→21:34)
[2020-07-14] MEDS: CETIRIZINE (ZyrTEC) 10 MG TAB PO SCH (08:04)
[2020-07-14] MEDS: OLANZapine ORAL DISINTEGRATING TAB 5MG PO PRN ×2 (10:24→18:15)
[2020-07-14] MEDS: chlorproMAZINE 25 MG TABLET PO PRN ×2 (12:47→18:51)
--- NOTE | 2020-07-14 19:02 | MHIPNPDOC ---
[facility] Progress Note Progress Note DATE OF SERVICE: 07/14/20 HISTORY:As per Dr. Anguiano: "The patient is met with multiple times, primarily fixates on this provider, reports that they have tried the Thorazine and its he lpful, with much less agitation. Earlier in the day the patient came much agitated and upset, at various small frustrations. As the evening went on the patient was more patient, it appears more common that the patient after taking some Thorazine becomes much more calm. The patient still has behavioral issues but they are much less intense and more controllable after they take the Thorazine, discussed this with them stating that medicine may be useful. The patient was rejected from [facility] for a lateral transfer as the patient requested due to the reported concerns of a charge against them." NEW TEST RESULTS: None. CURRENT MEDICATIONS: See below. MENTAL STATUS EXAMINATION: General: Poor hygiene, disheveled Speech: Spontaneous and fluid Thought processes: Linear and coherent Thought content: focused on a problem she had with another patient Abstract reasoning, and computation: Intact Description of associations: Intact Description of abnormal or psychotic thoughts: She reports sh has not had suicidal thoughts for 5 days Judgment: Poor/limited Insight: Poor/limited Orientation: Alert and orientated 3 Recent and remote memory: Intact Attention span and concentration: Intact Fund of knowledge: Adequate Mood: Anxious, irritable Affect: congruent with mood DIAGNOSES: 1. Unspecified impulse/conduct disorder. 2. Antisocial personality disorder/borderline personality disorder. 3. Bipolar disorder?. ASSESSMENT:The patient got into an argument with another patient. She has reported to me that she feels OK, she is saying that she doesn't know why her peer reacted the way she did, she thinks she ( the other patient) was having a bad day. She says that she feels a little less depressed since she was started on Vraylar. MANAGEMENT PLAN: Continue with current treatment plan TIME SPENT: 15 minutes. Vital Signs Vital Signs Date Time Temp Pulse Resp B/P (MAP) Pulse Ox O2 Delivery O2 Flow Rate FiO2 07/14/20 07:57 Room Air 07/13/20 18:00 98.4 89 16 154/87 (109) 95 Current Medications Current Medications Medications (Trade) Dose Ordered Sig/Brielle Route PRN Reason Start Time Stop Time Status Last Admin Dose Admin Acetaminophen (Tylenol Tab) 650 mg Q6HP PRN PO HEADACHE or DISCOMFORT 06/17/20 23:00 07/12/20 17:51 Al Hydrox/Mg Hydrox/Simethicone (Mylanta) 30 ml Q4HP PRN PO HEARTBURN/INDIGESTION 06/17/20 23:00 07/08/20 22:19 Aripiprazole (AbiLIFY) 2 mg QHS PO 06/18/20 21:00 06/19/20 15:03 DC 06/18/20 22:52 Cariprazine (Vraylar) 1.5 mg DAILY PO 06/25/20 09:00 06/26/20 14:08 DC 06/26/20 10:14 Cariprazine (Vraylar) 3 mg DAILY PO 06/27/20 09:00 07/14/20 08:04 Cetirizine HCl (ZyrTEC) 10 mg DAILY PO 06/29/20 09:00 07/14/20 08:04 Chlorpromazine HCl (Thorazine) 50 mg Q6HP PRN PO AGITATION/Anxiety 06/29/20 16:00 07/14/20 12:47 Fluoxetine HCl (PROzac) 40 mg QAM PO 06/18/20 09:00 06/24/20 09:50 DC 06/24/20 09:43 Home Med (Med Rec Complete!) ASDIRECTED XX 06/17/20 21:30 06/17/20 21:18 DC Magnesium Hydroxide (Milk Of Magnesia) 30 ml DAILYPRN PRN PO CONSTIPATION 06/17/20 23:00 06/21/20 23:03 Naproxen (Naprosyn) 250 mg Q12HP PRN PO PAIN OR DISCOMFORT 07/10/20 14:00 07/10/20 14:12 Olanzapine (ZyPREXA ZYDIS) 5 mg Q4HP PRN PO AGITATION 06/17/20 23:00 06/27/20 16:36 DC 06/26/20 20:06 Olanzapine (ZyPREXA ZYDIS) 5 mg Q6HP PRN PO ANXIETY/AGITATION 07/11/20 12:00 07/14/20 18:15 Olanzapine (ZyPREXA ZYDIS) 10 mg Q4HP PRN PO AGITATION 06/27/20 16:45 06/29/20 15:55 DC 06/28/20 21:49 Topiramate (TopAMAX) 100 mg BID PO 06/18/20 21:00 07/14/20 08:04 Trazodone HCl (Desyrel) 50 mg QHSP PRN PO INSOMNIA 06/17/20 23:00 07/12/20 21:14 Allergies Coded Allergies: haloperidol (Verified Adverse Reaction, Intermediate, LOCKJAW, 01/03/20) Has required & received this med many time without EPS noted risperidone (Verified Adverse Reaction, Mild, PSORIASIS, 11/26/19) DAVONTE OLIVEROS MD Jul 14, 2020 19:02
[2020-07-15] MEDS: CETIRIZINE (ZyrTEC) 10 MG TAB PO SCH (08:13)
[2020-07-15] MEDS: CARIPRAZINE 3MG CAPSULE (VRAYLAR) PO SCH (08:13)
[2020-07-15] MEDS: TOPIRAMATE (TopAMAX) 100 MG TAB PO SCH ×2 (08:13→21:25)
[2020-07-15] MEDS: OLANZapine ORAL DISINTEGRATING TAB 5MG PO PRN (15:54)
[2020-07-15 17:57] VITALS: BP 158/90
[2020-07-16 06:06] VITALS: BP 135/80
[2020-07-16] MEDS: MAALOX 30 ML SUSP *UDC PO PRN ×2 (06:45→13:07)
[2020-07-16] MEDS: TOPIRAMATE (TopAMAX) 100 MG TAB PO SCH ×3 (09:00→21:33)
[2020-07-16] MEDS: CETIRIZINE (ZyrTEC) 10 MG TAB PO SCH (09:00)
[2020-07-16] MEDS: CARIPRAZINE 3MG CAPSULE (VRAYLAR) PO SCH (09:00)
--- NOTE | 2020-07-16 14:46 | MHIPNPDOC ---
[facility] Progress Note Progress Note DATE OF SERVICE: 07/15/20 CHIEF COMPLAINT: "I have issues with my behavior" HISTORY: This is a 19-year-old female who was invited to this meeting, she accepted the invitation. Chart was reviewed. Patient hasn't been very cooperative. She indicates that the her problems started since she was 4-year-old and went to a foster care at age 7, has been on and off homeless since 2019. Patient denies auditory and visual hallucination. She denies suicidal and homicidal ideation. Patient reports that she has been on the following medications: Topamax 100 mg twice a day. Vraylar 3 mg by mouth all daily. Zyrtec 10 mg by mouth or daily. Trazodone 50 mg by mouth at bedtime. Thorazine 50 mg by mouth for agitation has been given recently. As patient was in the interview, she did not want to continue the interview. OBJECTIVE: VITAL SIGNS: See below. NEW TEST RESULTS: See below. CURRENT MEDICATIONS: See below. MENTAL STATUS EXAMINATION: Patient is a 19-year old female, who is partially cooperative, she is overweight and disheveled. Speech: Is clear with normal tone and volume. Patient made good eye contact. Motor activity: No Psychomotor agitation. No psychomotor retardation. Mood: "I am not good." Affect: Blunted, irritable. Thought processes : Linear, logical , but circumstantial and tangential. Thought content: appropriate denies suicidal thoughts. Denies homicidal thoughts. No persecutory delusion, no paranoia. Perception: Denies auditory and visual hallucination. She does not appear to be responding to internal stimuli. Judgment: Poor. Insight:. poor. Orientation: Patient is oriented to time, place, person and situation. Immediate recall, Recent, and remote memory: are grossly intact . Attention span and concentration: Patient is able to attend and concentrate. ASSESSMENT: Assess 19-year-old or female with the signs and symptoms consistent with Posttraumatic Stress Disorder in partial remission DIAGNOSES: 1. Posttraumatic Stress Disorder in partial remission. 2. Borderline personality disorder. 3. Somatic complaints. TREATMENT PLAN: Continue the following medications: Topamax 100 mg twice a day. Vraylar 3 mg by mouth all daily. Zyrtec 10 mg by mouth or daily. Trazodone 50 mg by mouth at bedtime. Thorazine 50 mg by mouth for agitation has been given recently.. TIME SPENT: 30 minutes. Vital Signs Vital Signs Label Value Date Time Patient Temperature 98.3 degrees F 07/15/201756 Temperature Source Temporal 07/15/201756 Pulse 85 07/15/201756 Respiratory Rate 15 bpm 07/15/201756 Blood Pressure Assessment 158/90 (112) 07/15/201756 Bedside Pulse Oximetry 97 % 07/15/201756 Item Value Date Time Oxygen Delivery Method Room Air 07/15/20 175 Laboratory Data Microbiology Current Medications Medications (Trade) Dose Ordered Sig/Brielle Route PRN Reason Start Time Stop Time Status Last Admin Dose Admin Acetaminophen (Tylenol Tab) 650 mg Q6HP PRN PO HEADACHE or DISCOMFORT 06/17/20 23:00 07/17/20 08:58 650 MG Al Hydrox/Mg Hydrox/Simethicone (Mylanta) 30 ml Q4HP PRN PO HEARTBURN/INDIGESTION 06/17/20 23:00 07/16/20 13:07 30 ML Cariprazine (Vraylar) 3 mg DAILY PO 06/27/20 09:00 07/17/20 08:50 3 MG Cetirizine HCl (ZyrTEC) 10 mg DAILY PO 06/29/20 09:00 07/17/20 08:50 10 MG Chlorpromazine HCl (Thorazine) 50 mg Q6HP PRN PO AGITATION/Anxiety 06/29/20 16:00 07/14/20 18:51 50 MG Magnesium Hydroxide (Milk Of Magnesia) 30 ml DAILYPRN PRN PO CONSTIPATION 06/17/20 23:00 06/21/20 23:03 30 ML Naproxen (Naprosyn) 250 mg Q12HP PRN PO PAIN OR DISCOMFORT 07/10/20 14:00 07/10/20 14:12 250 MG Olanzapine (ZyPREXA ZYDIS) 5 mg Q6HP PRN PO ANXIETY/AGITATION 07/11/20 12:00 07/15/20 15:54 5 MG Topiramate (TopAMAX) 100 mg BID PO 06/18/20 21:00 07/17/20 08:57 100 MG Trazodone HCl (Desyrel) 50 mg QHSP PRN PO INSOMNIA 06/17/20 23:00 07/16/20 21:16 50 MG Current Medications Current Medications Medications (Trade) Dose Ordered Sig/Brielle Route PRN Reason Start Time Stop Time Status Last Admin Dose Admin Acetaminophen (Tylenol Tab) 650 mg Q6HP PRN PO HEADACHE or DISCOMFORT 06/17/20 23:00 07/12/20 17:51 Al Hydrox/Mg Hydrox/Simethicone (Mylanta) 30 ml Q4HP PRN PO HEARTBURN/INDIGESTION 06/17/20 23:00 07/16/20 13:07 Aripiprazole (AbiLIFY) 2 mg QHS PO 06/18/20 21:00 06/19/20 15:03 DC 06/18/20 22:52 Cariprazine (Vraylar) 1.5 mg DAILY PO 06/25/20 09:00 06/26/20 14:08 DC 06/26/20 10:14 Cariprazine (Vraylar) 3 mg DAILY PO 06/27/20 09:00 07/15/20 08:13 Cetirizine HCl (ZyrTEC) 10 mg DAILY PO 06/29/20 09:00 07/15/20 08:13 Chlorpromazine HCl (Thorazine) 50 mg Q6HP PRN PO AGITATION/Anxiety 06/29/20 16:00 07/14/20 18:51 Fluoxetine HCl (PROzac) 40 mg QAM PO 06/18/20 09:00 06/24/20 09:50 DC 06/24/20 09:43 Home Med (Med Rec Complete!) ASDIRECTED XX 06/17/20 21:30 06/17/20 21:18 DC Magnesium Hydroxide (Milk Of Magnesia) 30 ml DAILYPRN PRN PO CONSTIPATION 06/17/20 23:00 06/21/20 23:03 Naproxen (Naprosyn) 250 mg Q12HP PRN PO PAIN OR DISCOMFORT 07/10/20 14:00 07/10/20 14:12 Olanzapine (ZyPREXA ZYDIS) 5 mg Q4HP PRN PO AGITATION 06/17/20 23:00 06/27/20 16:36 DC 06/26/20 20:06 Olanzapine (ZyPREXA ZYDIS) 5 mg Q6HP PRN PO ANXIETY/AGITATION 07/11/20 12:00 07/15/20 15:54 Olanzapine (ZyPREXA ZYDIS) 10 mg Q4HP PRN PO AGITATION 06/27/20 16:45 06/29/20 15:55 DC 06/28/20 21:49 Topiramate (TopAMAX) 100 mg BID PO 06/18/20 21:00 07/15/20 21:25 Trazodone HCl (Desyrel) 50 mg QHSP PRN PO INSOMNIA 06/17/20 23:00 07/12/20 21:14 Allergies Coded Allergies: haloperidol (Verified Adverse Reaction, Intermediate, LOCKJAW, 01/03/20) Has required & received this med many time without EPS noted risperidone (Verified Adverse Reaction, Mild, PSORIASIS, 11/26/19) JAYLON CHRISTINE MD Jul 16, 2020 14:46
[2020-07-16] MEDS: traZODone 50 MG TAB PO PRN (21:16)
[2020-07-17] MEDS: CETIRIZINE (ZyrTEC) 10 MG TAB PO SCH (08:50)
[2020-07-17] MEDS: CARIPRAZINE 3MG CAPSULE (VRAYLAR) PO SCH (08:50)
[2020-07-17] MEDS: TOPIRAMATE (TopAMAX) 100 MG TAB PO SCH ×2 (08:57→20:38)
[2020-07-17] MEDS: ACETAMINOPHEN TAB 650MG DOSE (2X325MG) PO PRN (08:58)
[2020-07-17] MEDS: OLANZapine ORAL DISINTEGRATING TAB 5MG PO PRN (20:39)
[2020-07-17] MEDS: chlorproMAZINE 25 MG TABLET PO PRN (20:39)
[2020-07-18] MEDS: TOPIRAMATE (TopAMAX) 100 MG TAB PO SCH ×2 (09:00→21:19)
[2020-07-18] MEDS: CETIRIZINE (ZyrTEC) 10 MG TAB PO SCH (09:00)
[2020-07-18] MEDS: CARIPRAZINE 3MG CAPSULE (VRAYLAR) PO SCH (09:00)
[2020-07-18] MEDS: chlorproMAZINE 25 MG TABLET PO PRN (09:38)
[2020-07-18] MEDS: MAALOX 30 ML SUSP *UDC PO PRN (13:32)
[2020-07-19] MEDS: CARIPRAZINE 3MG CAPSULE (VRAYLAR) PO SCH (08:41)
[2020-07-19] MEDS: CETIRIZINE (ZyrTEC) 10 MG TAB PO SCH (08:41)
[2020-07-19] MEDS: TOPIRAMATE (TopAMAX) 100 MG TAB PO SCH ×2 (08:41→20:30)
[2020-07-19 17:51] VITALS: BP 145/95
[2020-07-19] MEDS: MAALOX 30 ML SUSP *UDC PO PRN (23:20)
[2020-07-20] MEDS: CETIRIZINE (ZyrTEC) 10 MG TAB PO SCH (08:18)
[2020-07-20] MEDS: CARIPRAZINE 3MG CAPSULE (VRAYLAR) PO SCH (08:18)
[2020-07-20] MEDS: TOPIRAMATE (TopAMAX) 100 MG TAB PO SCH ×2 (08:18→21:00)
[2020-07-20] MEDS: ACETAMINOPHEN TAB 650MG DOSE (2X325MG) PO PRN (10:29)
[2020-07-20] MEDS: OLANZapine ORAL DISINTEGRATING TAB 5MG PO PRN ×2 (10:29→18:28)
[2020-07-20 16:30] VITALS: BP 118/78
[2020-07-20 18:51] VITALS: BP 140/88
[2020-07-20] MEDS ORDERED: diphenhydrAMINE 50MG/ML VIAL (J1200) IM STA ×2 (20:45→22:56)
[2020-07-20] MEDS ORDERED: LORazepam 2 MG/ML VIAL IM STA ×2 (20:45→22:56)
[2020-07-20] MEDS ORDERED: HALOPERIDOL 5MG/ML VIAL (J1630 PER 1) IM STA ×2 (20:45→22:56)
[2020-07-20 21:30] VITALS: BP 138/85
[2020-07-20 23:45] VITALS: BP 135/76
[2020-07-21] MEDS: CARIPRAZINE 3MG CAPSULE (VRAYLAR) PO SCH (12:42)
[2020-07-21] MEDS: TOPIRAMATE (TopAMAX) 100 MG TAB PO SCH ×2 (12:42→21:05)
[2020-07-21] MEDS: OLANZapine ORAL DISINTEGRATING TAB 5MG PO PRN ×2 (12:42→18:15)
[2020-07-21] MEDS: CETIRIZINE (ZyrTEC) 10 MG TAB PO SCH (12:42)
[2020-07-21 16:12] VITALS: BP 135/85
[2020-07-22] MEDS: TOPIRAMATE (TopAMAX) 100 MG TAB PO SCH ×2 (09:22→21:32)
[2020-07-22] MEDS: CETIRIZINE (ZyrTEC) 10 MG TAB PO SCH (09:22)
[2020-07-22] MEDS: CARIPRAZINE 3MG CAPSULE (VRAYLAR) PO SCH (09:22)
--- NOTE | 2020-07-22 09:50 | REPVR ---
PROCEDURE INFORMATION: Exam: CT Head Without Contrast Exam date and time: 07/20/2020 2:04 AM Age: 19 years old Clinical indication: Injury or trauma; Fall; Concussion/head injury; Consciousness not specified TECHNIQUE: Imaging protocol: Computed tomography of the head without contrast. Radiation optimization: All CT scans at this facility use at least one of these dose optimization techniques: automated exposure control; mA and/or kV adjustment per patient size (includes targeted exams where dose is matched to clinical indication); or iterative reconstruction. COMPARISON: No relevant prior studies available. FINDINGS: Brain: Normal. No hemorrhage. Unremarkable white matter. No mass effect. Cerebral ventricles: No ventriculomegaly. Bones/joints: Unremarkable. No acute fracture. Paranasal sinuses: Visualized sinuses are unremarkable. No fluid levels. Mastoid air cells: Visualized mastoid air cells are well aerated. Soft tissues: Left parietal scalp soft tissue swelling. IMPRESSION: No acute intracranial abnormality. Electronically signed by: Juan Ryder On 07/20/2020 03:05:43 AM
--- NOTE | 2020-07-22 10:02 | MHIPN ---
[facility] PROGRESS NOTE DATE: 07/20/2020 The patient today tells me "I fell." She states that at 3 o'clock in the morning she fell, she is not sure how that happened, she does have a significant hematoma on the left side of her head and I was called at that time and we ordered a CT scan, the results are pending, and we did neurologic evaluations after that and they were all normal and she tells me she is doing okay physically today, has no complaints, and she actually tells me today she does not have any thoughts of harming herself. MENTAL STATUS EXAMINATION: She is alert and oriented times three. Eye contact is fair. Psychomotor activity is normal. There is no formal thought disorder. She says her mood today is "better." Affect is appropriate to mood. She is not psychotic, says has no thoughts of harming herself today and denies homicidal ideations. Concentration is fair. Memory is intact. Insight and judgment poor. DIAGNOSES: Unspecified impulse control disorder. Borderline personality disorder. Rule out bipolar disorder. TREATMENT PLAN: At this point, we will continue to monitor the patient for mood symptoms and frequent voicing of thoughts to harm herself. Today, she says she does not want to harm herself, but she has consistently been threatening self-harm which is why she is on a one-to-one observation level which we will continue. ROSSY
--- NOTE | 2020-07-22 11:41 | MHIPN ---
[facility] PROGRESS NOTE - POST RESTRAINT NOTE DATE: 07/21/2020 The patient became very aggressive and agitated, to the point where she was a danger to self and others. The patient did not respond to any re-direction by staff, so she was sedated with chemical restraints with Haldol 10 mg, Ativan 2 mg, Benadryl 50, and the dose had to be repeated one more time because she continued to be agitated. Also, the patient was placed in physical restraints. Today, the patient is evaluated and it seems that the restraint was effective. At this point, she seems to be in good behavioral control.
[2020-07-22] MEDS: OLANZapine ORAL DISINTEGRATING TAB 5MG PO PRN ×2 (14:28→23:24)
--- NOTE | 2020-07-22 19:27 | MHIPNPDOC ---
[facility] Progress Note Progress Note DATE OF SERVICE: 07/22/20 HISTORY:As per Dr. Anguiano: "The patient is met with multiple times, primarily fixates on this provider, reports that they have tried the Thorazine and its h elpful, with much less agitation. Earlier in the day the patient came much agitated and upset, at various small frustrations. As the evening went on the patient was more patient, it appears more common that the patient after taking some Thorazine becomes much more calm. The patient still has behavioral issues but they are much less intense and more controllable after they take the Thorazine, discussed this with them stating that medicine may be useful. The patient [facility] for [facility] transfer as the patient requested due to the reported concerns of a charge against them." Interval History: The patient reports feeling depressed and angry. She blames everybody for her mood. NEW TEST RESULTS: None. CURRENT MEDICATIONS: See below. MENTAL STATUS EXAMINATION: General: Poor hygiene, disheveled Speech: Spontaneous and fluid, rapid, loud, with normal tone Thought processes: Linear and coherent Thought content: angry/depressive thoughts. She admits suicidal thoughts and tells me she is going to tie her shirt around her neck. Grabs her shirt while she is telling me this and then, she let it go, once her Nurse and myself told her she had to let it go. Abstract reasoning, and computation: Intact Description of associations: Intact Description of abnormal or psychotic thoughts: She reports she continues to have suicidal ideation without a plan. she reported suicidal ideation at the time of the interview Judgment: Poor Insight: Poor Orientation: Alert and orientated 3 Recent and remote memory: Intact Attention span and concentration: Intact Fund of knowledge: Adequate Mood: Anxious, irritable, depressed Affect: congruent with mood DIAGNOSES: 1. Unspecified impulse/conduct disorder. 2. Antisocial personality disorder/borderline personality disorder. 3. Bipolar disorder?. ASSESSMENT: She is very irritable, she is angry and frustrated. She is not using her coping skills. She is still seeking attention and when she said she was going to tie her shirt around her neck, she got that piece of attention she is always seeking. She desperately want people to tell her not to do it. Yareli has been doing this for a long time. Unfortunately, even when she can be manipulative, she also could end up hurting herself because she is very impulsive. Will continue to monitor very closely, will take away anything in her room that could be used to hurt herself. Will continue on 1:1 MANAGEMENT PLAN: Continue with current treatment plan TIME SPENT: 15 minutes. Vital Signs Vital Signs Date Time Temp Pulse Resp B/P (MAP) Pulse Ox O2 Delivery O2 Flow Rate FiO2 07/21/20 16:12 98.3 94 18 135/85 (102) 07/20/20 23:45 Room Air 07/20/20 18:51 98 Current Medications Current Medications Medications (Trade) Dose Ordered Sig/Brielle Route PRN Reason Start Time Stop Time Status Last Admin Dose Admin Acetaminophen (Tylenol Tab) 650 mg Q6HP PRN PO HEADACHE or DISCOMFORT 06/17/20 23:00 07/20/20 10:29 Al Hydrox/Mg Hydrox/Simethicone (Mylanta) 30 ml Q4HP PRN PO HEARTBURN/INDIGESTION 06/17/20 23:00 07/19/20 23:20 Aripiprazole (AbiLIFY) 2 mg QHS PO 06/18/20 21:00 06/19/20 15:03 DC 06/18/20 22:52 Cariprazine (Vraylar) 1.5 mg DAILY PO 06/25/20 09:00 06/26/20 14:08 DC 06/26/20 10:14 Cariprazine (Vraylar) 3 mg DAILY PO 06/27/20 09:00 07/22/20 09:22 Cetirizine HCl (ZyrTEC) 10 mg DAILY PO 06/29/20 09:00 07/22/20 09:22 Chlorpromazine HCl (Thorazine) 50 mg Q6HP PRN PO AGITATION/Anxiety 06/29/20 16:00 07/18/20 09:38 Diphenhydramine HCl (Benadryl) 50 mg STAT STAT IM 07/20/20 20:45 07/20/20 20:48 DC 07/20/20 20:53 Diphenhydramine HCl (Benadryl) 50 mg STAT STAT IM 07/20/20 22:56 07/20/20 22:59 DC 07/20/20 23:10 Fluoxetine HCl (PROzac) 40 mg QAM PO 06/18/20 09:00 06/24/20 09:50 DC 06/24/20 09:43 Haloperidol (Haldol) 10 mg STAT STAT IM 07/20/20 20:45 07/20/20 20:48 DC 07/20/20 20:53 Haloperidol (Haldol) 10 mg STAT STAT IM 07/20/20 22:56 07/20/20 22:59 DC 07/20/20 23:10 Home Med (Med Rec Complete!) ASDIRECTED XX 06/17/20 21:30 06/17/20 21:18 DC Lorazepam (Ativan) 2 mg STAT STAT IM 07/20/20 20:45 07/20/20 20:48 DC 07/20/20 20:53 Lorazepam (Ativan) 2 mg STAT STAT IM 07/20/20 22:56 07/20/20 22:59 DC 07/20/20 23:11 Magnesium Hydroxide (Milk Of Magnesia) 30 ml DAILYPRN PRN PO CONSTIPATION 06/17/20 23:00 06/21/20 23:03 Naproxen (Naprosyn) 250 mg Q12HP PRN PO PAIN OR DISCOMFORT 07/10/20 14:00 07/10/20 14:12 Olanzapine (ZyPREXA ZYDIS) 5 mg Q4HP PRN PO AGITATION 06/17/20 23:00 06/27/20 16:36 DC 06/26/20 20:06 Olanzapine (ZyPREXA ZYDIS) 5 mg Q6HP PRN PO ANXIETY/AGITATION 07/11/20 12:00 07/22/20 14:28 Olanzapine (ZyPREXA ZYDIS) 10 mg Q4HP PRN PO AGITATION 06/27/20 16:45 06/29/20 15:55 DC 06/28/20 21:49 Topiramate (TopAMAX) 100 mg BID PO 06/18/20 21:00 07/22/20 09:22 Trazodone HCl (Desyrel) 50 mg QHSP PRN PO INSOMNIA 06/17/20 23:00 07/16/20 21:16 Allergies Coded Allergies: haloperidol (Verified Adverse Reaction, Intermediate, LOCKJAW, 01/03/20) Has required & received this med many time without EPS noted risperidone (Verified Adverse Reaction, Mild, PSORIASIS, 11/26/19) DAVONTE OLIVEROS MD Jul 22, 2020 18:03
[2020-07-22] MEDS: chlorproMAZINE 25 MG TABLET PO PRN (23:27)
[2020-07-22] MEDS: ACETAMINOPHEN TAB 650MG DOSE (2X325MG) PO PRN (23:56)
[2020-07-23] MEDS ORDERED: ChlorproMAZINE 100 MG TABLET PO ONE
[2020-07-23] MEDS: TOPIRAMATE (TopAMAX) 100 MG TAB PO SCH ×3 (09:00→19:56)
[2020-07-23] MEDS: CARIPRAZINE 3MG CAPSULE (VRAYLAR) PO SCH ×2 (09:00→12:08)
[2020-07-23] MEDS: CETIRIZINE (ZyrTEC) 10 MG TAB PO SCH ×2 (09:00→12:08)
--- NOTE | 2020-07-23 19:29 | MHIPNPDOC ---
[facility] Progress Note Progress Note DATE OF SERVICE: 07/23/20 HISTORY:As per Dr. Anguiano: "The patient is met with multiple times, primarily fixates on this provider, reports that they have tried the Thorazine and its h elpful, with much less agitation. Earlier in the day the patient came much agitated and upset, at various small frustrations. As the evening went on the patient was more patient, it appears more common that the patient after taking some Thorazine becomes much more calm. The patient still has behavioral issues but they are much less intense and more controllable after they take the Thorazine, discussed this with them stating that medicine may be useful. The patient was rejected from [facility] for a lateral transfer as the patient requested due to the reported concerns of a charge against them." Interval History: The patient reports feeling depressed and angry. She blames everybody for her mood. NEW TEST RESULTS: None. CURRENT MEDICATIONS: See below. MENTAL STATUS EXAMINATION: General: Poor hygiene, disheveled Speech: Spontaneous and fluid, rapid, loud, with normal tone Thought processes: Linear and coherent Thought content: angry/depressive thoughts. She denies suicidal ideation, denies homicidal ideation, denies thought delusions Abstract reasoning, and computation: Intact Description of associations: Intact Description of abnormal or psychotic thoughts: She is not delusional, she does not have any TAV hallucinations, she is not responding to internal stimuli Judgment: Poor Insight: Poor Orientation: Alert and orientated 3 Recent and remote memory: Intact Attention span and concentration: Intact Fund of knowledge: Adequate Mood: irritable, very angry Affect: congruent with mood DIAGNOSES: 1. Unspecified impulse/conduct disorder. 2. Antisocial personality disorder/borderline personality disorder. 3. Bipolar disorder?. ASSESSMENT: She is not engaging in any meaningful conversation. She tries to invalidate anything I say because she wants to be right all the time. She becomes loud and verbally abusive. She continues to be defiant about [facility] rules. MANAGEMENT PLAN: Continue with current treatment plan TIME SPENT: 15 minutes. Vital Signs Vital Signs Date Time Temp Pulse Resp B/P (MAP) Pulse Ox O2 Delivery O2 Flow Rate FiO2 07/21/20 16:12 98.3 94 18 135/85 (102) 07/20/20 23:45 Room Air 07/20/20 18:51 98 Current Medications Current Medications Medications (Trade) Dose Ordered Sig/Brielle Route PRN Reason Start Time Stop Time Status Last Admin Dose Admin Acetaminophen (Tylenol Tab) 650 mg Q6HP PRN PO HEADACHE or DISCOMFORT 06/17/20 23:00 07/22/20 23:56 Al Hydrox/Mg Hydrox/Simethicone (Mylanta) 30 ml Q4HP PRN PO HEARTBURN/INDIGESTION 06/17/20 23:00 07/19/20 23:20 Aripiprazole (AbiLIFY) 2 mg QHS PO 06/18/20 21:00 06/19/20 15:03 DC 06/18/20 22:52 Cariprazine (Vraylar) 1.5 mg DAILY PO 06/25/20 09:00 06/26/20 14:08 DC 06/26/20 10:14 Cariprazine (Vraylar) 3 mg DAILY PO 06/27/20 09:00 07/23/20 12:08 Cetirizine HCl (ZyrTEC) 10 mg DAILY PO 06/29/20 09:00 07/23/20 12:08 Chlorpromazine HCl (Thorazine) 50 mg Q6HP PRN PO AGITATION/Anxiety 06/29/20 16:00 07/22/20 23:27 Diphenhydramine HCl (Benadryl) 50 mg STAT STAT IM 07/20/20 20:45 07/20/20 20:48 DC 07/20/20 20:53 Diphenhydramine HCl (Benadryl) 50 mg STAT STAT IM 07/20/20 22:56 07/20/20 22:59 DC 07/20/20 23:10 Fluoxetine HCl (PROzac) 40 mg QAM PO 06/18/20 09:00 06/24/20 09:50 DC 06/24/20 09:43 Haloperidol (Haldol) 10 mg STAT STAT IM 07/20/20 20:45 07/20/20 20:48 DC 07/20/20 20:53 Haloperidol (Haldol) 10 mg STAT STAT IM 07/20/20 22:56 07/20/20 22:59 DC 07/20/20 23:10 Home Med (Med Rec Complete!) ASDIRECTED XX 06/17/20 21:30 06/17/20 21:18 DC Lorazepam (Ativan) 2 mg STAT STAT IM 07/20/20 20:45 07/20/20 20:48 DC 07/20/20 20:53 Lorazepam (Ativan) 2 mg STAT STAT IM 07/20/20 22:56 07/20/20 22:59 DC 07/20/20 23:11 Magnesium Hydroxide (Milk Of Magnesia) 30 ml DAILYPRN PRN PO CONSTIPATION 06/17/20 23:00 06/21/20 23:03 Naproxen (Naprosyn) 250 mg Q12HP PRN PO PAIN OR DISCOMFORT 07/10/20 14:00 07/10/20 14:12 Olanzapine (ZyPREXA ZYDIS) 5 mg Q4HP PRN PO AGITATION 06/17/20 23:00 06/27/20 16:36 DC 06/26/20 20:06 Olanzapine (ZyPREXA ZYDIS) 5 mg Q6HP PRN PO ANXIETY/AGITATION 07/11/20 12:00 07/22/20 23:24 Olanzapine (ZyPREXA ZYDIS) 10 mg Q4HP PRN PO AGITATION 06/27/20 16:45 06/29/20 15:55 DC 06/28/20 21:49 Topiramate (TopAMAX) 100 mg BID PO 06/18/20 21:00 07/23/20 12:08 Trazodone HCl (Desyrel) 50 mg QHSP PRN PO INSOMNIA 06/17/20 23:00 07/16/20 21:16 Allergies Coded Allergies: haloperidol (Verified Adverse Reaction, Intermediate, LOCKJAW, 01/03/20) Has required & received this med many time without EPS noted risperidone (Verified Adverse Reaction, Mild, PSORIASIS, 11/26/19) DAVONTE OLIVEROS MD Jul 23, 2020 18:15
[2020-07-23] MEDS: OLANZapine ORAL DISINTEGRATING TAB 5MG PO PRN (19:56)
[2020-07-24] MEDS: CETIRIZINE (ZyrTEC) 10 MG TAB PO SCH (09:58)
[2020-07-24] MEDS: TOPIRAMATE (TopAMAX) 100 MG TAB PO SCH ×2 (11:51→21:31)
[2020-07-24] MEDS: CARIPRAZINE 3MG CAPSULE (VRAYLAR) PO SCH (11:51)
--- NOTE | 2020-07-24 12:10 | MHIPN ---
[facility] PROGRESS NOTE DATE: 07/21/20 HISTORY OF PRESENT ILLNESS: The patient today is noted to be upset. She states that the reason why she was restrained yesterday was because people kept asking her if she wanted any medications to calm down and that that is why she became aggressive to the point where she needed to be physically and chemically restrained. She does continue to have self harm thoughts. MENTAL STATUS EXAM: This patient is alert and oriented times 3. Eye contact is fair. Psychomotor activity is normal. There is no formal thought disorder noted. Mood is angry. Affect is appropriate to mood. She is not psychotic. She is saying that she is still having self harm thoughts. She is not homicidal. Concentration is fair. Memory intact. Insight and judgment is poor. DIAGNOSES: 1. Unspecified impulse control disorder. 2. Borderline personality disorder. 3. Rule out bipolar disorder. TREATMENT PLAN: We will continue to monitor this patient for continued thoughts of self mutilating behavior and for continued episodes of aggressiveness, and we will continue to titrate medications as indicated.
--- NOTE | 2020-07-24 16:54 | MHIPNPDOC ---
[facility] Progress Note Progress Note DATE OF SERVICE: 07/24/20 DATE OF SERVICE: 07/23/20 HISTORY:As per Dr. Anguiano: "The patient is met with multiple times, primarily fixates on this provider, reports that they have tried the Thorazine and its helpful, with much less agitation. Earlier in the day the patient came much agitated and upset, at various small frustrations. As the evening went on the patient was more patient, it appears more common that the patient after taking some Thorazine becomes much more calm. The patient still has behavioral issues but they are much less intense and more controllable after they take the Thorazine, discussed this with them stating that medicine may be useful. The patient was rejected from [facility] for a lateral transfer as the patient requested due to the reported concerns of a charge against them." Interval History: The patient reports feeling depressed and angry. She blames everybody for her mood. NEW TEST RESULTS: None. CURRENT MEDICATIONS: See below. MENTAL STATUS EXAMINATION: General: Poor hygiene, disheveled Speech: Spontaneous and fluent, normal in r/t/v Thought processes: Linear and coherent Thought content: She denies suicidal ideation at this time, denies homicidal ideation at this time, denies thought delusions at this time Abstract reasoning, and computation: Intact Description of associations: Intact Description of abnormal or psychotic thoughts: She is not delusional, she does not have any TAV hallucinations, she is not responding to internal stimuli Judgment: limited Insight: Poor Orientation: Alert and orientated 3 Recent and remote memory: Intact Attention span and concentration: Intact Fund of knowledge: Adequate Mood: euthymic today Affect: congruent with mood DIAGNOSES: 1. Unspecified impulse/conduct disorder. 2. Antisocial personality disorder/borderline personality disorder. 3. Bipolar disorder?. ASSESSMENT: she is more stable today, she was not agitated, not suicidal, not homicidal at this time but unfortunately her mood shifts very fast. tomorrow, she says, she will have a response tomorrow, whether they accept her or not in there. TIME SPENT: 15 minutes. Vital Signs Vital Signs Date Time Temp Pulse Resp B/P (MAP) Pulse Ox O2 Delivery O2 Flow Rate FiO2 07/21/20 16:12 98.3 94 18 135/85 (102) 07/20/20 23:45 Room Air 07/20/20 18:51 98 Current Medications Current Medications Medications (Trade) Dose Ordered Sig/Brielle Route PRN Reason Start Time Stop Time Status Last Admin Dose Admin Acetaminophen (Tylenol Tab) 650 mg Q6HP PRN PO HEADACHE or DISCOMFORT 06/17/20 23:00 07/22/20 23:56 Al Hydrox/Mg Hydrox/Simethicone (Mylanta) 30 ml Q4HP PRN PO HEARTBURN/INDIGESTION 06/17/20 23:00 07/19/20 23:20 Aripiprazole (AbiLIFY) 2 mg QHS PO 06/18/20 21:00 06/19/20 15:03 DC 06/18/20 22:52 Cariprazine (Vraylar) 1.5 mg DAILY PO 06/25/20 09:00 06/26/20 14:08 DC 06/26/20 10:14 Cariprazine (Vraylar) 3 mg DAILY PO 06/27/20 09:00 07/24/20 11:51 Cetirizine HCl (ZyrTEC) 10 mg DAILY PO 06/29/20 09:00 07/24/20 09:58 Chlorpromazine HCl (Thorazine) 50 mg Q6HP PRN PO AGITATION/Anxiety 06/29/20 16:00 07/22/20 23:27 Diphenhydramine HCl (Benadryl) 50 mg STAT STAT IM 07/20/20 20:45 07/20/20 20:48 DC 07/20/20 20:53 Diphenhydramine HCl (Benadryl) 50 mg STAT STAT IM 07/20/20 22:56 07/20/20 22:59 DC 07/20/20 23:10 Fluoxetine HCl (PROzac) 40 mg QAM PO 06/18/20 09:00 06/24/20 09:50 DC 06/24/20 09:43 Haloperidol (Haldol) 10 mg STAT STAT IM 07/20/20 20:45 07/20/20 20:48 DC 07/20/20 20:53 Haloperidol (Haldol) 10 mg STAT STAT IM 07/20/20 22:56 07/20/20 22:59 DC 07/20/20 23:10 Home Med (Med Rec Complete!) ASDIRECTED XX 06/17/20 21:30 12/7/20 21:18 DC Lorazepam (Ativan) 2 mg STAT STAT IM 07/20/20 20:45 07/20/20 20:48 DC 07/20/20 20:53 Lorazepam (Ativan) 2 mg STAT STAT IM 07/20/20 22:56 07/20/20 22:59 DC 07/20/20 23:11 Magnesium Hydroxide (Milk Of Magnesia) 30 ml DAILYPRN PRN PO CONSTIPATION 06/17/20 23:00 06/21/20 23:03 Naproxen (Naprosyn) 250 mg Q12HP PRN PO PAIN OR DISCOMFORT 07/10/20 14:00 07/10/20 14:12 Olanzapine (ZyPREXA ZYDIS) 5 mg Q4HP PRN PO AGITATION 06/17/20 23:00 06/27/20 16:36 DC 06/26/20 20:06 Olanzapine (ZyPREXA ZYDIS) 5 mg Q6HP PRN PO ANXIETY/AGITATION 07/11/20 12:00 07/23/20 19:56 Olanzapine (ZyPREXA ZYDIS) 10 mg Q4HP PRN PO AGITATION 06/27/20 16:45 06/29/20 15:55 DC 06/28/20 21:49 Topiramate (TopAMAX) 100 mg BID PO 06/18/20 21:00 07/24/20 11:51 Trazodone HCl (Desyrel) 50 mg QHSP PRN PO INSOMNIA 06/17/20 23:00 07/16/20 21:16 Allergies Coded Allergies: haloperidol (Verified Adverse Reaction, Intermediate, LOCKJAW, 01/03/20) Has required & received this med many time without EPS noted risperidone (Verified Adverse Reaction, Mild, PSORIASIS, 11/26/19) DAVONTE OLIVEROS MD Jul 24, 2020 16:54
[2020-07-24] MEDS: OLANZapine ORAL DISINTEGRATING TAB 5MG PO PRN (18:16)
[2020-07-24] MEDS: MAALOX 30 ML SUSP *UDC PO PRN (23:46)
[2020-07-25] MEDS: CARIPRAZINE 3MG CAPSULE (VRAYLAR) PO SCH (09:48)
[2020-07-25] MEDS: TOPIRAMATE (TopAMAX) 100 MG TAB PO SCH ×3 (09:48→21:04)
[2020-07-25] MEDS: CETIRIZINE (ZyrTEC) 10 MG TAB PO SCH (09:48)
[2020-07-25] MEDS: ACETAMINOPHEN TAB 650MG DOSE (2X325MG) PO PRN (12:16)
[2020-07-25] MEDS: OLANZapine ORAL DISINTEGRATING TAB 5MG PO PRN ×2 (15:31→20:57)
--- NOTE | 2020-07-25 17:20 | MHIPNPDOC ---
[facility] Progress Note Progress Note DATE OF SERVICE: 07/25/20 HISTORY:As per Dr. Anguiano: "The patient is met with multiple times, primarily fixates on this provider, reports that they have tried the Thorazine and its h elpful, with much less agitation. Earlier in the day the patient came much agitated and upset, at various small frustrations. As the evening went on the patient was more patient, it appears more common that the patient after taking some Thorazine becomes much more calm. The patient still has behavioral issues but they are much less intense and more controllable after they take the Thorazine, discussed this with them stating that medicine may be useful. The patient was rejected from [facility] for a lateral transfer as the patient requested due to the reported concerns of a charge against them." Interval History: The patient continues to report feeling angry. She says she doesn't know what [facility] has decided regarding if she is accepted or not. She continues to report feeling upset for multiple reasons including as of why this teletypewriter operator doesn't evaluate her at 8:00 in the morning, so, that I won't interrupt her afternoon, to which I repplied that unfortunately I can't meet with her early in the morning because I have to be at the Outpatient clinic early in the morning. NEW TEST RESULTS: None. CURRENT MEDICATIONS: See below. MENTAL STATUS EXAMINATION: General: Poor hygiene, disheveled Speech: Spontaneous and fluent, normal in r/t/v most of the time but she can be loud when she gets upset. Thought processes: Linear and coherent Thought content: She denies suicidal ideation at this time, denies homicidal ideation at this time, denies thought delusions at this time Abstract reasoning, and computation: Intact Description of associations: Intact Description of abnormal or psychotic thoughts: She is not delusional, she does not have any TAV hallucinations, she is not responding to internal stimuli Judgment: Poor Insight: Poor Orientation: Alert and orientated 3 Recent and remote memory: Intact Attention span and concentration: Intact Fund of knowledge: Adequate Mood: labile, irritable Affect: congruent with mood DIAGNOSES: 1. Unspecified impulse/conduct disorder. 2. Antisocial personality disorder/borderline personality disorder. 3. Bipolar disorder?. ASSESSMENT:the patient continues to show no tolerance to frustration, she wants everything to be on her terms. she says that she feels frustrated because she is not moving from [facility], however, she doesn't want to accept that she is not applying her coping skills. She likes to think of herself as the victim of every type of situation because she learned the "leaned helplessness" since she was a very young girl without noticing that the time has gone by and that she is not the young girl that was helpless, she is a young woman that can contribute to change her life. Garth's thought process is immature for her age, she has a concrete type of thinking and she thinks that people are against her and that is rooted on the difficult childhood she had to endure,. no medication changes at this time. will discuss with [employer] if there's any possibility for her to be accepted at [facility]. TIME SPENT: 15 minutes. Vital Signs Vital Signs Date Time Temp Pulse Resp B/P (MAP) Pulse Ox O2 Delivery O2 Flow Rate FiO2 07/21/20 16:12 98.3 94 18 135/85 (102) 07/20/20 23:45 Room Air 07/20/20 18:51 98 Current Medications Current Medications Medications (Trade) Dose Ordered Sig/Brielle Route PRN Reason Start Time Stop Time Status Last Admin Dose Admin Acetaminophen (Tylenol Tab) 650 mg Q6HP PRN PO HEADACHE or DISCOMFORT 06/17/20 23:00 07/25/20 12:16 Al Hydrox/Mg Hydrox/Simethicone (Mylanta) 30 ml Q4HP PRN PO HEARTBURN/INDIGESTION 06/17/20 23:00 07/24/20 23:46 Aripiprazole (AbiLIFY) 2 mg QHS PO 06/18/20 21:00 06/19/20 15:03 DC 06/18/20 22:52 Cariprazine (Vraylar) 1.5 mg DAILY PO 06/25/20 09:00 06/26/20 14:08 DC 06/26/20 10:14 Cariprazine (Vraylar) 3 mg DAILY PO 06/27/20 09:00 07/25/20 09:48 Cetirizine HCl (ZyrTEC) 10 mg DAILY PO 06/29/20 09:00 07/25/20 09:48 Chlorpromazine HCl (Thorazine) 50 mg Q6HP PRN PO AGITATION/Anxiety 06/29/20 16:00 07/22/20 23:27 Diphenhydramine HCl (Benadryl) 50 mg STAT STAT IM 07/20/20 20:45 07/20/20 20:48 DC 07/20/20 20:53 Diphenhydramine HCl (Benadryl) 50 mg STAT STAT IM 07/20/20 22:56 07/20/20 22:59 DC 07/20/20 23:10 Fluoxetine HCl (PROzac) 40 mg QAM PO 06/18/20 09:00 06/24/20 09:50 DC 06/24/20 09:43 Haloperidol (Haldol) 10 mg STAT STAT IM 07/20/20 20:45 07/20/20 20:48 DC 07/20/20 20:53 Haloperidol (Haldol) 10 mg STAT STAT IM 07/20/20 22:56 07/20/20 22:59 DC 07/20/20 23:10 Home Med (Med Rec Complete!) ASDIRECTED XX 06/17/20 21:30 06/17/20 21:18 DC Lorazepam (Ativan) 2 mg STAT STAT IM 07/20/20 20:45 07/20/20 20:48 DC 07/20/20 20:53 Lorazepam (Ativan) 2 mg STAT STAT IM 07/20/20 22:56 07/20/20 22:59 DC 07/20/20 23:11 Magnesium Hydroxide (Milk Of Magnesia) 30 ml DAILYPRN PRN PO CONSTIPATION 06/17/20 23:00 06/21/20 23:03 Naproxen (Naprosyn) 250 mg Q12HP PRN PO PAIN OR DISCOMFORT 07/10/20 14:00 07/10/20 14:12 Olanzapine (ZyPREXA ZYDIS) 5 mg Q4HP PRN PO AGITATION 06/17/20 23:00 06/27/20 16:36 DC 06/26/20 20:06 Olanzapine (ZyPREXA ZYDIS) 5 mg Q6HP PRN PO ANXIETY/AGITATION 07/11/20 12:00 07/25/20 15:31 Olanzapine (ZyPREXA ZYDIS) 10 mg Q4HP PRN PO AGITATION 06/27/20 16:45 06/29/20 15:55 DC 06/28/20 21:49 Topiramate (TopAMAX) 100 mg BID PO 06/18/20 21:00 07/25/20 09:48 Trazodone HCl (Desyrel) 50 mg QHSP PRN PO INSOMNIA 06/17/20 23:00 07/16/20 21:16 Allergies Coded Allergies: haloperidol (Verified Adverse Reaction, Intermediate, LOCKJAW, 01/03/20) Has required & received this med many time without EPS noted risperidone (Verified Adverse Reaction, Mild, PSORIASIS, 11/26/19) DAVONTE OLIVEROS MD Jul 25, 2020 17:20
[2020-07-26] MEDS: TOPIRAMATE (TopAMAX) 100 MG TAB PO SCH ×2 (09:43→20:04)
[2020-07-26] MEDS: CARIPRAZINE 3MG CAPSULE (VRAYLAR) PO SCH (09:43)
[2020-07-26] MEDS: CETIRIZINE (ZyrTEC) 10 MG TAB PO SCH (09:43)
[2020-07-26] MEDS: OLANZapine ORAL DISINTEGRATING TAB 5MG PO PRN (19:41)
[2020-07-26] MEDS: chlorproMAZINE 25 MG TABLET PO PRN (20:02)
--- NOTE | 2020-07-26 20:08 | MHIPNPDOC ---
[facility] Progress Note Progress Note DATE OF SERVICE: 07/26/20 HISTORY: HISTORY:As per Dr. Anguiano: "The patient is met with multiple times, primarily fixates on this provider, reports that they have tried the Thorazine and its helpful, with much less agitation. Earlier in the day the patient came much agitated and upset, at various small frustrations. As the evening went on the patient was more patient, it appears more common that the patient after taking some Thorazine becomes much more calm. The patient still has behavioral issues but they are much less intense and more controllable after they take the Thorazine, discussed this with them stating that medicine may be useful. The patient was rejected from [facility] for a lateral transfer as the patient requested due to the reported concerns of a charge against them." INTERVAL HISTORY: This afternoon I requested Nurse Ruth Gomez to ask Yareli to join [facility] for her zoom meeting but she refused twice to come and meet with me. As I heard from staff members, she had been more calm today, interacting with peers and staff. She has remained on a 1:1 due to her constant suicidal threats tend to happen when she is extremely angry or frustrated. TIME SPENT: 0 minutes. Vital Signs Vital Signs Date Time Temp Pulse Resp B/P (MAP) Pulse Ox O2 Delivery O2 Flow Rate FiO2 07/21/20 16:12 98.3 94 18 135/85 (102) 07/20/20 23:45 Room Air 07/20/20 18:51 98 Current Medications Current Medications Medications (Trade) Dose Ordered Sig/Brielle Route PRN Reason Start Time Stop Time Status Last Admin Dose Admin Acetaminophen (Tylenol Tab) 650 mg Q6HP PRN PO HEADACHE or DISCOMFORT 06/17/20 23:00 07/25/20 12:16 Al Hydrox/Mg Hydrox/Simethicone (Mylanta) 30 ml Q4HP PRN PO HEARTBURN/INDIGESTION 06/17/20 23:00 07/24/20 23:46 Aripiprazole (AbiLIFY) 2 mg QHS PO 06/18/20 21:00 06/19/20 15:03 DC 06/18/20 22:52 Cariprazine (Vraylar) 1.5 mg DAILY PO 06/25/20 09:00 06/26/20 14:08 DC 06/26/20 10:14 Cariprazine (Vraylar) 3 mg DAILY PO 06/27/20 09:00 07/26/20 09:43 Cetirizine HCl (ZyrTEC) 10 mg DAILY PO 06/29/20 09:00 07/26/20 09:43 Chlorpromazine HCl (Thorazine) 50 mg Q6HP PRN PO AGITATION/Anxiety 06/29/20 16:00 07/22/20 23:27 Diphenhydramine HCl (Benadryl) 50 mg STAT STAT IM 07/20/20 20:45 07/20/20 20:48 DC 07/20/20 20:53 Diphenhydramine HCl (Benadryl) 50 mg STAT STAT IM 07/20/20 22:56 07/20/20 22:59 DC 07/20/20 23:10 Fluoxetine HCl (PROzac) 40 mg QAM PO 06/18/20 09:00 06/24/20 09:50 DC 06/24/20 09:43 Haloperidol (Haldol) 10 mg STAT STAT IM 07/20/20 20:45 07/20/20 20:48 DC 07/20/20 20:53 Haloperidol (Haldol) 10 mg STAT STAT IM 07/20/20 22:56 07/20/20 22:59 DC 07/20/20 23:10 Home Med (Med Rec Complete!) ASDIRECTED XX 06/17/20 21:30 06/17/20 21:18 DC Lorazepam (Ativan) 2 mg STAT STAT IM 07/20/20 20:45 07/20/20 20:48 DC 07/20/20 20:53 Lorazepam (Ativan) 2 mg STAT STAT IM 07/20/20 22:56 07/20/20 22:59 DC 07/20/20 23:11 Magnesium Hydroxide (Milk Of Magnesia) 30 ml DAILYPRN PRN PO CONSTIPATION 06/17/20 23:00 06/21/20 23:03 Naproxen (Naprosyn) 250 mg Q12HP PRN PO PAIN OR DISCOMFORT 07/10/20 14:00 07/10/20 14:12 Olanzapine (ZyPREXA ZYDIS) 5 mg Q4HP PRN PO AGITATION 06/17/20 23:00 06/27/20 16:36 DC 06/26/20 20:06 Olanzapine (ZyPREXA ZYDIS) 5 mg Q6HP PRN PO ANXIETY/AGITATION 07/11/20 12:00 07/26/20 19:41 Olanzapine (ZyPREXA ZYDIS) 10 mg Q4HP PRN PO AGITATION 06/27/20 16:45 06/29/20 15:55 DC 06/28/20 21:49 Topiramate (TopAMAX) 100 mg BID PO 06/18/20 21:00 07/26/20 09:43 Trazodone HCl (Desyrel) 50 mg QHSP PRN PO INSOMNIA 06/17/20 23:00 07/16/20 21:16 Allergies Coded Allergies: haloperidol (Verified Adverse Reaction, Intermediate, LOCKJAW, 01/03/20) Has required & received this med many time without EPS noted risperidone (Verified Adverse Reaction, Mild, PSORIASIS, 11/26/19) DAVONTE OLIVEROS MD Jul 26, 2020 20:08
[2020-07-27] MEDS: CETIRIZINE (ZyrTEC) 10 MG TAB PO SCH (09:00)
[2020-07-27] MEDS: TOPIRAMATE (TopAMAX) 100 MG TAB PO SCH ×2 (09:00→21:21)
[2020-07-27] MEDS: CARIPRAZINE 3MG CAPSULE (VRAYLAR) PO SCH (09:00)
[2020-07-27] MEDS: OLANZapine ORAL DISINTEGRATING TAB 5MG PO PRN (23:30)
[2020-07-28] MEDS: chlorproMAZINE 25 MG TABLET PO PRN (00:39)
[2020-07-28] MEDS: TOPIRAMATE (TopAMAX) 100 MG TAB PO SCH ×3 (09:00→21:10)
[2020-07-28] MEDS: CARIPRAZINE 3MG CAPSULE (VRAYLAR) PO SCH ×2 (09:00→12:09)
[2020-07-28] MEDS: CETIRIZINE (ZyrTEC) 10 MG TAB PO SCH ×2 (09:00→12:09)
[2020-07-28] MEDS: OLANZapine ORAL DISINTEGRATING TAB 5MG PO PRN ×2 (12:49→22:40)
--- NOTE | 2020-07-28 20:37 | WAPSY-ES ---
PSYCHIATRIC PSYCH OFFICE NOTE DATE: 07/27/2020 VITAL SIGNS: 165/85, pulse 94, temperature 98.3. This is a video assessment. She is seen in the presence of staff. CHIEF COMPLAINT: Says feels okay today. SUBJECTIVE: Seen for follow up. Indicates feels okay today and that things have been good for the most part. Denies feeling down pervasively, denies suicidal thoughts. Does say has refused her medicines, Vraylar, Zyrtec and Topamax. Initially indicated that she refused it because of she did not think that they were of any use, says has been requiring medicines as needed when agitated or upset and therefore did not feel that these ones worked. MENTAL STATUS EXAMINATION: She is neat, cooperative, though somewhat superficially so. She is coherent. There is no agitation. No psychomotor retardation. Affect reactive. Denies any thoughts of harming herself or anyone else. Currently, no evidence of psychosis. Cognition is grossly intact. Judgment and insight remain compromised. ASSESSMENT: There is some question of bipolar disorder, as well as antisocial/borderline personality disorder. PLAN: Continue current care and observation. She is aware that the medicines that has been offered, we suggest that she rethink her decision to stop taking them. Further recommendations will be made depending on the clinical picture. She has declined to see assigned psychiatrist yesterday.
[2020-07-29] MEDS: CETIRIZINE (ZyrTEC) 10 MG TAB PO SCH (09:52)
[2020-07-29] MEDS: TOPIRAMATE (TopAMAX) 100 MG TAB PO SCH ×2 (09:52→21:44)
[2020-07-29] MEDS: CARIPRAZINE 3MG CAPSULE (VRAYLAR) PO SCH (09:52)
[2020-07-29] MEDS: OLANZapine ORAL DISINTEGRATING TAB 5MG PO PRN ×2 (11:21→22:53)
--- NOTE | 2020-07-29 20:45 | MHIPNPDOC ---
[facility] Progress Note Progress Note DATE OF SERVICE: 07/29/20 HISTORY:As per Dr. Anguiano: "The patient is met with multiple times, primarily fixates on this provider, reports that they have tried the Thorazine and its h elpful, with much less agitation. Earlier in the day the patient came much agitated and upset, at various small frustrations. As the evening went on the patient was more patient, it appears more common that the patient after taking some Thorazine becomes much more calm. The patient still has behavioral issues but they are much less intense and more controllable after they take the Thorazine, discussed this with them stating that medicine may be useful. The patient was rejected from [facility] for a lateral transfer as the patient requested due to the reported concerns of a charge against them." Interval History: She says she got restrained from going to groups, she got her things taken away on Wednesday night. She reports she was feeling very frustrated because her brother is having serious substance abuse problems and their father is not helping him and then, because she was upset she decided to wrap her shrt around her neck and her things were taken away from her and group restricted too. She says she wants to know what to do and that other staff members have tld her she has to go by the behavioral plan. She says she will take her PRN medications if feeling frustrated and immediately after she will go to her room where she will try to apply her coping skills in order to remain in behavioral control NEW TEST RESULTS: None. CURRENT MEDICATIONS: See below. MENTAL STATUS EXAMINATION: General: Poor hygiene, disheveled Speech: Spontaneous and fluent, normal in r/t/v most of the time. It was rapid and pressured when we started talking but it went back to normal as we advanced in the interview Thought processes: Linear and coherent Thought content: She denies suicidal ideation at this time, denies homicidal ideation at this time, denies thought delusions at this time Abstract reasoning, and computation: Intact Description of associations: Intact Description of abnormal or psychotic thoughts: She is not delusional, she does not have any TAV hallucinations, she is not responding to internal stimuli Judgment: Poor Insight: Poor Orientation: Alert and orientated 3 Recent and remote memory: Intact Attention span and concentration: Intact Fund of knowledge: Adequate Mood: labile ( sad, tearful, anxious, irritable) Affect: congruent with mood DIAGNOSES: 1. Unspecified impulse/conduct disorder. 2. Antisocial personality disorder/borderline personality disorder. 3. Bipolar disorder?. ASSESSMENT: Please see above in Interval History. She has compromised to take her PRN medications as soon as she feels frustrated and immediately she will go to her room where she will try to apply her coping skills to calm down and remain in behavioral control. She will have to do this several times if she wants to be off the sitter and if she wants her things to be returned to her or if she wants to be able to participate in groups. TIME SPENT: 15 minutes. Current Medications Current Medications Medications (Trade) Dose Ordered Sig/Brielle Route PRN Reason Start Time Stop Time Status Last Admin Dose Admin Acetaminophen (Tylenol Tab) 650 mg Q6HP PRN PO HEADACHE or DISCOMFORT 06/17/20 23:00 07/25/20 12:16 Al Hydrox/Mg Hydrox/Simethicone (Mylanta) 30 ml Q4HP PRN PO HEARTBURN/INDIGESTION 06/17/20 23:00 07/24/20 23:46 Aripiprazole (AbiLIFY) 2 mg QHS PO 06/18/20 21:00 06/19/20 15:03 DC 06/18/20 22:52 Cariprazine (Vraylar) 1.5 mg DAILY PO 06/25/20 09:00 06/26/20 14:08 DC 06/26/20 10:14 Cariprazine (Vraylar) 3 mg DAILY PO 06/27/20 09:00 07/29/20 09:52 Cetirizine HCl (ZyrTEC) 10 mg DAILY PO 06/29/20 09:00 07/29/20 09:52 Chlorpromazine HCl (Thorazine) 50 mg Q6HP PRN PO AGITATION/Anxiety 06/29/20 16:00 07/28/20 00:39 Diphenhydramine HCl (Benadryl) 50 mg STAT STAT IM 07/20/20 20:45 07/20/20 20:48 DC 07/20/20 20:53 Diphenhydramine HCl (Benadryl) 50 mg STAT STAT IM 07/20/20 22:56 07/20/20 22:59 DC 07/20/20 23:10 Fluoxetine HCl (PROzac) 40 mg QAM PO 06/18/20 09:00 06/24/20 09:50 DC 06/24/20 09:43 Haloperidol (Haldol) 10 mg STAT STAT IM 07/20/20 20:45 07/20/20 20:48 DC 07/20/20 20:53 Haloperidol (Haldol) 10 mg STAT STAT IM 07/20/20 22:56 07/20/20 22:59 DC 07/20/20 23:10 Home Med (Med Rec Complete!) ASDIRECTED XX 06/17/20 21:30 06/17/20 21:18 DC Lorazepam (Ativan) 2 mg STAT STAT IM 07/20/20 20:45 07/20/20 20:48 DC 07/20/20 20:53 Lorazepam (Ativan) 2 mg STAT STAT IM 07/20/20 22:56 07/20/20 22:59 DC 07/20/20 23:11 Magnesium Hydroxide (Milk Of Magnesia) 30 ml DAILYPRN PRN PO CONSTIPATION 06/17/20 23:00 06/21/20 23:03 Miscellaneous (Unresolved Clarification Entry) SEE LABEL COMMENTS DAILY XX 07/28/20 09:00 07/28/20 15:45 DC Naproxen (Naprosyn) 250 mg Q12HP PRN PO PAIN OR DISCOMFORT 07/10/20 14:00 07/10/20 14:12 Olanzapine (ZyPREXA ZYDIS) 5 mg Q4HP PRN PO AGITATION 06/17/20 23:00 06/27/20 16:36 DC 06/26/20 20:06 Olanzapine (ZyPREXA ZYDIS) 5 mg Q6HP PRN PO ANXIETY/AGITATION 07/11/20 12:00 07/29/20 11:21 Olanzapine (ZyPREXA ZYDIS) 10 mg Q4HP PRN PO AGITATION 06/27/20 16:45 06/29/20 15:55 DC 06/28/20 21:49 Topiramate (TopAMAX) 100 mg BID PO 06/18/20 21:00 07/29/20 09:52 Trazodone HCl (Desyrel) 50 mg QHSP PRN PO INSOMNIA 06/17/20 23:00 07/16/20 21:16 Allergies Coded Allergies: haloperidol (Verified Adverse Reaction, Intermediate, LOCKJAW, 01/03/20) Has required & received this med many time without EPS noted risperidone (Verified Adverse Reaction, Mild, PSORIASIS, 11/26/19) DAVONTE OLIVEROS MD Jul 29, 2020 16:07
[2020-07-29] MEDS: chlorproMAZINE 25 MG TABLET PO PRN (22:53)
[2020-07-30] MEDS: CARIPRAZINE 3MG CAPSULE (VRAYLAR) PO SCH (09:00)
[2020-07-30] MEDS: TOPIRAMATE (TopAMAX) 100 MG TAB PO SCH ×2 (09:00→20:43)
[2020-07-30] MEDS: CETIRIZINE (ZyrTEC) 10 MG TAB PO SCH (09:00)
[2020-07-30] MEDS: chlorproMAZINE 25 MG TABLET PO PRN (15:26)
--- NOTE | 2020-07-30 16:51 | MHIPNPDOC ---
[facility] Progress Note Progress Note DATE OF SERVICE: 07/30/20 HISTORY:As per Dr. Anguiano: "The patient is met with multiple times, primarily fixates on this provider, reports that they have tried the Thorazine and its h elpful, with much less agitation. Earlier in the day the patient came much agitated and upset, at various small frustrations. As the evening went on the patient was more patient, it appears more common that the patient after taking some Thorazine becomes much more calm. The patient still has behavioral issues but they are much less intense and more controllable after they take the Thorazine, discussed this with them stating that medicine may be useful. The patient was rejected from [facility] for a lateral transfer as the patient requested due to the reported concerns of a charge against them." Interval History: she says she's tired of being at the Hospital, she says ( yells) that she wants to leave, she doesn't care if she goes out and has nowhere to go, she can always try to go to her father's house. She says she doesn't want to hear anything about her not being safe. She continues yelling. NEW TEST RESULTS: None. CURRENT MEDICATIONS: See below. MENTAL STATUS EXAMINATION: General: Poor hygiene, disheveled Speech: Extremely loud, rapid, at times pressured. Thought processes: Not rational, immature, concrete Thought content: She denies suicidal ideation at this time, denies homicidal ideation at this time, denies thought delusions at this time but she seems paranoid, she is extremely guarded, she is distrustful regarding staff members. Abstract reasoning, and computation: Unable to assess, she is extremely difficult to engage this afternoon, she is extremely agitated and angry Description of associations: Intact Description of abnormal or psychotic thoughts: She is not delusional, she does not have any TAV hallucinations, she is not responding to internal stimuli Judgment: Poor Insight: Poor Orientation: Alert and orientated 3 Recent and remote memory: Intact Attention span and concentration: Intact Fund of knowledge: Adequate Mood: very irritable, labile, angry Affect: congruent with mood DIAGNOSES: 1. Unspecified impulse/conduct disorder. 2. Antisocial personality disorder/borderline personality disorder. 3. Bipolar disorder?. ASSESSMENT: She wants to leave but she doesn't have control of her impulses, she continues to threaten suicide, she continues to yell at people, she has no tolerance to frustration. she can't be discharged like this but she doesn't want to hear this. She will continue on a 1:1 sitter due to her poor impulse control and her mood instability. TIME SPENT: 15 minutes. Current Medications Current Medications Medications (Trade) Dose Ordered Sig/Brielle Route PRN Reason Start Time Stop Time Status Last Admin Dose Admin Acetaminophen (Tylenol Tab) 650 mg Q6HP PRN PO HEADACHE or DISCOMFORT 06/17/20 23:00 07/25/20 12:16 Al Hydrox/Mg Hydrox/Simethicone (Mylanta) 30 ml Q4HP PRN PO HEARTBURN/INDIGESTION 06/17/20 23:00 07/24/20 23:46 Aripiprazole (AbiLIFY) 2 mg QHS PO 06/18/20 21:00 06/19/20 15:03 DC 06/18/20 22:52 Cariprazine (Vraylar) 1.5 mg DAILY PO 06/25/20 09:00 06/26/20 14:08 DC 06/26/20 10:14 Cariprazine (Vraylar) 3 mg DAILY PO 06/27/20 09:00 07/29/20 09:52 Cetirizine HCl (ZyrTEC) 10 mg DAILY PO 06/29/20 09:00 07/29/20 09:52 Chlorpromazine HCl (Thorazine) 50 mg Q6HP PRN PO AGITATION/Anxiety 06/29/20 16:00 07/29/20 22:53 Diphenhydramine HCl (Benadryl) 50 mg STAT STAT IM 07/20/20 20:45 07/20/20 20:48 DC 07/20/20 20:53 Diphenhydramine HCl (Benadryl) 50 mg STAT STAT IM 07/20/20 22:56 07/20/20 22:59 DC 07/20/20 23:10 Fluoxetine HCl (PROzac) 40 mg QAM PO 06/18/20 09:00 06/24/20 09:50 DC 06/24/20 09:43 Haloperidol (Haldol) 10 mg STAT STAT IM 07/20/20 20:45 07/20/20 20:48 DC 07/20/20 20:53 Haloperidol (Haldol) 10 mg STAT STAT IM 07/20/20 22:56 07/20/20 22:59 DC 07/20/20 23:10 Home Med (Med Rec Complete!) ASDIRECTED XX 06/17/20 21:30 06/17/20 21:18 DC Lorazepam (Ativan) 2 mg STAT STAT IM 07/20/20 20:45 07/20/20 20:48 DC 07/20/20 20:53 Lorazepam (Ativan) 2 mg STAT STAT IM 07/20/20 22:56 07/20/20 22:59 DC 07/20/20 23:11 Magnesium Hydroxide (Milk Of Magnesia) 30 ml DAILYPRN PRN PO CONSTIPATION 06/17/20 23:00 06/21/20 23:03 Miscellaneous (Unresolved Clarification Entry) SEE LABEL COMMENTS DAILY XX 07/28/20 09:00 07/28/20 15:45 DC Naproxen (Naprosyn) 250 mg Q12HP PRN PO PAIN OR DISCOMFORT 07/10/20 14:00 07/10/20 14:12 Olanzapine (ZyPREXA ZYDIS) 5 mg Q4HP PRN PO AGITATION 06/17/20 23:00 06/27/20 16:36 DC 06/26/20 20:06 Olanzapine (ZyPREXA ZYDIS) 5 mg Q6HP PRN PO ANXIETY/AGITATION 07/11/20 12:00 07/29/20 22:53 Olanzapine (ZyPREXA ZYDIS) 10 mg Q4HP PRN PO AGITATION 06/27/20 16:45 06/29/20 15:55 DC 06/28/20 21:49 Topiramate (TopAMAX) 100 mg BID PO 06/18/20 21:00 07/29/20 21:44 Trazodone HCl (Desyrel) 50 mg QHSP PRN PO INSOMNIA 06/17/20 23:00 07/16/20 21:16 Allergies Coded Allergies: haloperidol (Verified Adverse Reaction, Intermediate, LOCKJAW, 01/03/20) Has required & received this med many time without EPS noted risperidone (Verified Adverse Reaction, Mild, PSORIASIS, 11/26/19) DAVONTE OLIVEROS MD Jul 30, 2020 15:32
[2020-07-30] MEDS: OLANZapine ORAL DISINTEGRATING TAB 5MG PO PRN (19:57)
[2020-07-30] MEDS ORDERED: ChlorproMAZINE 100 MG TABLET PO STA (20:37)
[2020-07-31] MEDS: TOPIRAMATE (TopAMAX) 100 MG TAB PO SCH ×3 (09:00→20:23)
[2020-07-31] MEDS: CARIPRAZINE 3MG CAPSULE (VRAYLAR) PO SCH ×2 (09:00→10:21)
[2020-07-31] MEDS: CETIRIZINE (ZyrTEC) 10 MG TAB PO SCH ×2 (09:00→10:21)
[2020-07-31] MEDS ORDERED: LORazepam 2 MG/ML VIAL IM STA (14:16)
[2020-07-31] MEDS ORDERED: OLANZapine INTRAMUSCULAR 10MG VIAL IM ONE (14:30)
[2020-07-31 16:27] VITALS: BP 122/79
--- NOTE | 2020-07-31 18:46 | MHIPNPDOC ---
[facility] Progress Note Progress Note Subjective: Yareli is a 19 year old single, unemployed, undomiciled female with an extensive psychiatric history in terms of inpatient hospitalizations and self- injurious behavior, previously diagnosed with Borderline Personality disorder, Anxiety disorder and unspecified mood disorder who was brought back to the [facility] ED after reportedly ingesting 72 Valium 5 mg tablets. Ms. Hatch continues to present with very poor insight, judgement and impulse control while on the inpatient unit. Today, she had numerous labile outbursts at staff and at peers. She threatened to physically attack staff if she wasnt immediately discharged. Get me the f### out of here or I will f### you up!! Due to being an imminent danger to others, she received Zyprexa 10 mg IM stat and Ativan 2 mg IM stat, no manual hold required, with fair effect. She continues to remain on 1:1. She submitted a 72 hour letter earlier today, then rescinded and then later, impulsively, submitted another. Go to hell! Objective: Seen and evaluated, alert and oriented times three, very psychomotor agitated, intense eye contact, appears stated age, obese, gait WNL, very disheveled/poor hygiene; Speech is loud in volume, increased in production, fast in rate; Mood: Go to hell! Affect: labile, increased intensity; She denies any current passive or active suicidal ideation, intent or plan but she is very verbally/physically aggressive, endorsing homicidal ideation with intent and plan towards staff members; denies AH/VH/TH, insight, impulse control and judgment are very poor. A/P: Yareli is a 19 year old single, unemployed, undomiciled female with an extensive psychiatric history in terms of inpatient hospitalizations and self- injurious behavior, previously diagnosed with Borderline Personality disorder, Anxiety disorder and unspecified mood disorder who was brought back to the [facility] ED after reportedly ingesting 72 Valium 5 mg tablets. 1) Topamax was continued at 100 mg po twice daily for mood stabilization; Thorazine was added at 100 mg po twice daily for severe mood dysregulation and aggression. 2) Continue on 1:1 observation for safety of self/others 3) Continue to be followed up by Senior Marketing Specialist on unit to be optimize patients medical comorbidities and BMI. 4) Continue to work with discharge planners and treatment team for safest discharge plan available. 5) Due to her submitting 72 hour letter, unless she rescinds this letter, will very likely have to attend court for involuntary retention due to the level of her symptomatology and being a grave danger to self and others. 6) Continue to participate in community milieu and group programming on the unit. Vital Signs Vital Signs Date Time Temp Pulse Resp B/P (MAP) Pulse Ox O2 Delivery O2 Flow Rate FiO2 07/31/20 16:27 98.8 76 18 122/79 (93) 99 Room Air Current Medications Current Medications Medications (Trade) Dose Ordered Sig/Brielle Route PRN Reason Start Time Stop Time Status Last Admin Dose Admin Acetaminophen (Tylenol Tab) 650 mg Q6HP PRN PO HEADACHE or DISCOMFORT 06/17/20 23:00 07/25/20 12:16 Al Hydrox/Mg Hydrox/Simethicone (Mylanta) 30 ml Q4HP PRN PO HEARTBURN/INDIGESTION 06/17/20 23:00 07/24/20 23:46 Aripiprazole (AbiLIFY) 2 mg QHS PO 06/18/20 21:00 06/19/20 15:03 DC 06/18/20 22:52 Cariprazine (Vraylar) 1.5 mg DAILY PO 06/25/20 09:00 06/26/20 14:08 DC 06/26/20 10:14 Cariprazine (Vraylar) 3 mg DAILY PO 06/27/20 09:00 07/31/20 10:21 Cetirizine HCl (ZyrTEC) 10 mg DAILY PO 06/29/20 09:00 07/31/20 10:21 Chlorpromazine HCl (Thorazine) 50 mg Q6HP PRN PO AGITATION/Anxiety 06/29/20 16:00 07/30/20 15:26 Chlorpromazine HCl (Thorazine) 100 mg BID PO 07/31/20 21:00 Chlorpromazine HCl (Thorazine) 100 mg STAT STAT PO 07/30/20 20:37 07/30/20 20:39 DC 07/30/20 20:43 Diphenhydramine HCl (Benadryl) 50 mg STAT STAT IM 07/20/20 20:45 07/20/20 20:48 DC 07/20/20 20:53 Diphenhydramine HCl (Benadryl) 50 mg STAT STAT IM 07/20/20 22:56 07/20/20 22:59 DC 07/20/20 23:10 Fluoxetine HCl (PROzac) 40 mg QAM PO 06/18/20 09:00 06/24/20 09:50 DC 06/24/20 09:43 Haloperidol (Haldol) 10 mg STAT STAT IM 07/20/20 20:45 07/20/20 20:48 DC 07/20/20 20:53 Haloperidol (Haldol) 10 mg STAT STAT IM 07/20/20 22:56 07/20/20 22:59 DC 07/20/20 23:10 Home Med (Med Rec Complete!) ASDIRECTED XX 06/17/20 21:30 06/17/20 21:18 DC Lorazepam (Ativan) 2 mg STAT STAT IM 07/31/20 14:16 07/31/20 14:20 DC 07/31/20 14:27 Lorazepam (Ativan) 2 mg STAT STAT IM 07/20/20 20:45 07/20/20 20:48 DC 07/20/20 20:53 Lorazepam (Ativan) 2 mg STAT STAT IM 07/20/20 22:56 07/20/20 22:59 DC 07/20/20 23:11 Magnesium Hydroxide (Milk Of Magnesia) 30 ml DAILYPRN PRN PO CONSTIPATION 06/17/20 23:00 06/21/20 23:03 Miscellaneous (Unresolved Clarification Entry) SEE LABEL COMMENTS DAILY XX 07/28/20 09:00 07/28/20 15:45 DC Naproxen (Naprosyn) 250 mg Q12HP PRN PO PAIN OR DISCOMFORT 07/10/20 14:00 07/10/20 14:12 Olanzapine (ZyPREXA ZYDIS) 5 mg Q4HP PRN PO AGITATION 06/17/20 23:00 06/27/20 16:36 DC 06/26/20 20:06 Olanzapine (ZyPREXA ZYDIS) 5 mg Q6HP PRN PO ANXIETY/AGITATION 07/11/20 12:00 07/30/20 19:57 Olanzapine (ZyPREXA ZYDIS) 10 mg Q4HP PRN PO AGITATION 06/27/20 16:45 06/29/20 15:55 DC 06/28/20 21:49 Topiramate (TopAMAX) 100 mg BID PO 06/18/20 21:00 07/31/20 10:20 Trazodone HCl (Desyrel) 50 mg QHSP PRN PO INSOMNIA 06/17/20 23:00 07/16/20 21:16 Allergies Coded Allergies: haloperidol (Verified Adverse Reaction, Intermediate, LOCKJAW, 01/03/20) Has required & received this med many time without EPS noted risperidone (Verified Adverse Reaction, Mild, PSORIASIS, 11/26/19) SEA PEREZ MD Jul 31, 2020 18:46
[2020-07-31] MEDS: OLANZapine ORAL DISINTEGRATING TAB 5MG PO PRN (20:23)
[2020-07-31] MEDS: ChlorproMAZINE 100 MG TABLET PO SCH (20:23)
[2020-07-31] MEDS: traZODone 50 MG TAB PO PRN (20:23)
[2020-07-31] MEDS: chlorproMAZINE 25 MG TABLET PO PRN (20:23)
--- NOTE | 2020-08-01 09:16 | MHIPN ---
[facility] PROGRESS NOTE DATE: 07/28/2020 I am informed by staff that she is asleep, and did not wish to be woken up to see me. I understand from staff that she has been doing relatively well. We will continue current observations and care, and she will see the clinician tomorrow.
[2020-08-01] MEDS: CARIPRAZINE 3MG CAPSULE (VRAYLAR) PO SCH (14:24)
[2020-08-01] MEDS: CETIRIZINE (ZyrTEC) 10 MG TAB PO SCH (14:24)
[2020-08-01] MEDS: ChlorproMAZINE 100 MG TABLET PO SCH ×2 (14:24→21:00)
[2020-08-01] MEDS: TOPIRAMATE (TopAMAX) 100 MG TAB PO SCH ×2 (14:24→20:25)
[2020-08-01 17:58] VITALS: BP 140/69
--- NOTE | 2020-08-01 19:20 | MHIPNPDOC ---
[facility] Progress Note Progress Note Subjective: Yareli is a 19 year old single, unemployed, undomiciled female with an extensive psychiatric history in terms of inpatient hospitalizations and self- injurious behavior, previously diagnosed with Borderline Personality disorder, Anxiety disorder and unspecified mood disorder who was brought back to the [facility] ED after reportedly ingesting 72 Valium 5 mg tablets. Yareli continued to demonstrate very poor impulse dysregulation and judgment, today, while on 1:1, as she attempted to throw a chair at the 1:1, unprovoked and was very verbally aggressive. After some time, she did respond to some verbal de- escalation techniques and then did receive a Thorazine 50 mg tablet PO prn with fair/poor relief of symptoms. She remains unpredictable and hostile. Objective: Seen and evaluated, alert and oriented times three, very psychomotor agitated, intense eye contact, appears stated age, obese, gait WNL, very disheveled/poor hygiene; Speech is loud in volume, increased in production, fast in rate; Mood: F### all of you!! Affect: labile, increased intensity and range; She denies any current passive or active suicidal ideation, intent or plan but she is very verbally/physically aggressive, endorsing homicidal ideation with intent and plan towards staff members; denies AH/VH/TH, insight, impulse control and judgment are very poor. A/P: Yareli is a 19 year old single, unemployed, undomiciled female with an extensive psychiatric history in terms of inpatient hospitalizations and self- injurious behavior, previously diagnosed with Borderline Personality disorder, Anxiety disorder and unspecified mood disorder who was brought back to the [facility] ED after reportedly ingesting 72 Valium 5 mg tablets. 1) Topamax was continued at 100 mg po twice daily for mood stabilization; Thorazine was continued at 100 mg po twice daily for severe mood dysregulation and aggression, and will titrate further upwards tomorrow. 2) Continue on 1:1 observation for safety of self/others 3) Continue to be followed up by [employer] Sales Consultant on unit to be optimize patients medical comorbidities and BMI. 4) Continue to work with discharge planners and treatment team for safest discharge plan available. 5) Due to her submitting 72 hour letter, unless she rescinds this letter, will very likely have to attend court for involuntary retention due to the level of her symptomatology and being a grave danger to self and others. 6) Continue to participate in community milieu and group programming on the unit. Vital Signs Vital Signs Date Time Temp Pulse Resp B/P (MAP) Pulse Ox O2 Delivery O2 Flow Rate FiO2 08/01/20 17:58 98.2 94 16 140/69 (92) 100 07/31/20 16:27 Room Air Current Medications Current Medications Medications (Trade) Dose Ordered Sig/Brielle Route PRN Reason Start Time Stop Time Status Last Admin Dose Admin Acetaminophen (Tylenol Tab) 650 mg Q6HP PRN PO HEADACHE or DISCOMFORT 06/17/20 23:00 07/25/20 12:16 Al Hydrox/Mg Hydrox/Simethicone (Mylanta) 30 ml Q4HP PRN PO HEARTBURN/INDIGESTION 06/17/20 23:00 07/24/20 23:46 Aripiprazole (AbiLIFY) 2 mg QHS PO 06/18/20 21:00 06/19/20 15:03 DC 06/18/20 22:52 Cariprazine (Vraylar) 1.5 mg DAILY PO 06/25/20 09:00 06/26/20 14:08 DC 06/26/20 10:14 Cariprazine (Vraylar) 3 mg DAILY PO 06/27/20 09:00 08/01/20 14:24 Cetirizine HCl (ZyrTEC) 10 mg DAILY PO 06/29/20 09:00 08/01/20 14:24 Chlorpromazine HCl (Thorazine) 50 mg Q6HP PRN PO AGITATION/Anxiety 06/29/20 16:00 07/31/20 20:23 Chlorpromazine HCl (Thorazine) 100 mg BID PO 07/31/20 21:00 08/01/20 14:24 Chlorpromazine HCl (Thorazine) 100 mg STAT STAT PO 07/30/20 20:37 07/30/20 20:39 DC 07/30/20 20:43 Diphenhydramine HCl (Benadryl) 50 mg STAT STAT IM 07/20/20 20:45 07/20/20 20:48 DC 07/20/20 20:53 Diphenhydramine HCl (Benadryl) 50 mg STAT STAT IM 07/20/20 22:56 07/20/20 22:59 DC 07/20/20 23:10 Fluoxetine HCl (PROzac) 40 mg QAM PO 06/18/20 09:00 06/24/20 09:50 DC 06/24/20 09:43 Haloperidol (Haldol) 10 mg STAT STAT IM 07/20/20 20:45 07/20/20 20:48 DC 07/20/20 20:53 Haloperidol (Haldol) 10 mg STAT STAT IM 07/20/20 22:56 07/20/20 22:59 DC 07/20/20 23:10 Home Med (Med Rec Complete!) ASDIRECTED XX 06/17/20 21:30 06/17/20 21:18 DC Lorazepam (Ativan) 2 mg STAT STAT IM 07/31/20 14:16 07/31/20 14:20 DC 07/31/20 14:27 Lorazepam (Ativan) 2 mg STAT STAT IM 07/20/20 20:45 07/20/20 20:48 DC 07/20/20 20:53 Lorazepam (Ativan) 2 mg STAT STAT IM 07/20/20 22:56 07/20/20 22:59 DC 07/20/20 23:11 Magnesium Hydroxide (Milk Of Magnesia) 30 ml DAILYPRN PRN PO CONSTIPATION 06/17/20 23:00 06/21/20 23:03 Miscellaneous (Unresolved Clarification Entry) SEE LABEL COMMENTS DAILY XX 07/28/20 09:00 07/28/20 15:45 DC Naproxen (Naprosyn) 250 mg Q12HP PRN PO PAIN OR DISCOMFORT 07/10/20 14:00 07/10/20 14:12 Olanzapine (ZyPREXA ZYDIS) 5 mg Q4HP PRN PO AGITATION 06/17/20 23:00 06/27/20 16:36 DC 06/26/20 20:06 Olanzapine (ZyPREXA ZYDIS) 5 mg Q6HP PRN PO ANXIETY/AGITATION 07/11/20 12:00 07/31/20 20:23 Olanzapine (ZyPREXA ZYDIS) 10 mg Q4HP PRN PO AGITATION 06/27/20 16:45 06/29/20 15:55 DC 06/28/20 21:49 Topiramate (TopAMAX) 100 mg BID PO 06/18/20 21:00 08/01/20 14:24 Trazodone HCl (Desyrel) 50 mg QHSP PRN PO INSOMNIA 06/17/20 23:00 07/31/20 20:23 Allergies Coded Allergies: haloperidol (Verified Adverse Reaction, Intermediate, LOCKJAW, 01/03/20) Has required & received this med many time without EPS noted risperidone (Verified Adverse Reaction, Mild, PSORIASIS, 11/26/19) SEA PEREZ MD Aug 01, 2020 19:20
[2020-08-01] MEDS: OLANZapine ORAL DISINTEGRATING TAB 5MG PO PRN (19:27)
[2020-08-02 06:00] VITALS: BP 139/67
[2020-08-02] MEDS: ChlorproMAZINE 100 MG TABLET PO SCH ×3 (09:00→23:32)
[2020-08-02] MEDS: CARIPRAZINE 3MG CAPSULE (VRAYLAR) PO SCH (09:00)
[2020-08-02] MEDS: TOPIRAMATE (TopAMAX) 100 MG TAB PO SCH ×4 (09:00→23:32)
[2020-08-02] MEDS: CETIRIZINE (ZyrTEC) 10 MG TAB PO SCH (09:00)
--- NOTE | 2020-08-02 16:15 | MHIPNPDOC ---
[facility] Progress Note Progress Note Subjective: Yareli is a 19 year old single, unemployed, undomiciled female with an extensive psychiatric history in terms of inpatient hospitalizations and self- injurious behavior, previously diagnosed with Borderline Personality disorder, Anxiety disorder and unspecified mood disorder who was brought back to the [facility] ED after reportedly ingesting 72 Valium 5 mg tablets. Again, throughout today, she showed very poor frustration tolerance, throwing several plastic chairs around the community room. She attempted to blockade herself in her bedroom and was very verbally aggressive, again to her 1:1 staff and peers. She does not respond well to verbal redirection. She did agree to take a Thorazine 50 mg PO tablet prn with mild response. You all can burn in hell! Objective: Seen and evaluated, alert and oriented times three, very psychomotor agitated, intense eye contact, appears stated age, obese, gait WNL, very disheveled/poor hygiene; Speech is loud in volume, increased in production, fast in rate; Mood: Go to hell, jerk! Affect: labile, increased intensity and range; She denies any current passive or active suicidal ideation, intent or plan but she is very verbally/physically aggressive, endorsing homicidal ideation with intent and plan towards staff members; denies AH/VH/TH, insight, impulse control and judgment are very poor. A/P: Yareli is a 19 year old single, unemployed, undomiciled female with an extensive psychiatric history in terms of inpatient hospitalizations and self- injurious behavior, previously diagnosed with Borderline Personality disorder, Anxiety disorder and unspecified mood disorder who was brought back to the [facility] ED after reportedly ingesting 72 Valium 5 mg tablets. 1)Topamax was increased today to 200 mg po twice daily to better help alleviate symptoms of mood dysregulation; Thorazine was continued at 100 mg po twice daily for severe mood dysregulation and aggression, and will titrate further upwards tomorrow. 2) Continue on 1:1 observation for safety of self/others 3) Continue to be followed up by Ornamental Metal Fabricator Apprentice on unit to be optimize patients medical comorbidities and BMI. 4) Continue to work with discharge planners and treatment team for safest discharge plan available. 5) Due to her submitting 72 hour letter, unless she rescinds this letter, will very likely have to attend court for involuntary retention due to the level of her symptomatology and being a grave danger to self and others. 6) Continue to participate in community milieu and group programming on the unit. Total time spent: 45 minutes Vital Signs Vital Signs Date Time Temp Pulse Resp B/P (MAP) Pulse Ox O2 Delivery O2 Flow Rate FiO2 08/02/20 06:00 98.3 86 16 139/67 (91) 99 Room Air Current Medications Current Medications Medications (Trade) Dose Ordered Sig/Brielle Route PRN Reason Start Time Stop Time Status Last Admin Dose Admin Acetaminophen (Tylenol Tab) 650 mg Q6HP PRN PO HEADACHE or DISCOMFORT 06/17/20 23:00 07/25/20 12:16 Al Hydrox/Mg Hydrox/Simethicone (Mylanta) 30 ml Q4HP PRN PO HEARTBURN/INDIGESTION 06/17/20 23:00 07/24/20 23:46 Aripiprazole (AbiLIFY) 2 mg QHS PO 06/18/20 21:00 06/19/20 15:03 DC 06/18/20 22:52 Cariprazine (Vraylar) 1.5 mg DAILY PO 06/25/20 09:00 06/26/20 14:08 DC 06/26/20 10:14 Cariprazine (Vraylar) 3 mg DAILY PO 06/27/20 09:00 08/01/20 14:24 Cetirizine HCl (ZyrTEC) 10 mg DAILY PO 06/29/20 09:00 08/01/20 14:24 Chlorpromazine HCl (Thorazine) 50 mg Q6HP PRN PO AGITATION/Anxiety 06/29/20 16:00 07/31/20 20:23 Chlorpromazine HCl (Thorazine) 100 mg BID PO 07/31/20 21:00 08/01/20 14:24 Chlorpromazine HCl (Thorazine) 100 mg STAT STAT PO 07/30/20 20:37 07/30/20 20:39 DC 07/30/20 20:43 Diphenhydramine HCl (Benadryl) 50 mg STAT STAT IM 07/20/20 20:45 07/20/20 20:48 DC 07/20/20 20:53 Diphenhydramine HCl (Benadryl) 50 mg STAT STAT IM 07/20/20 22:56 07/20/20 22:59 DC 07/20/20 23:10 Fluoxetine HCl (PROzac) 40 mg QAM PO 06/18/20 09:00 06/24/20 09:50 DC 06/24/20 09:43 Haloperidol (Haldol) 10 mg STAT STAT IM 07/20/20 20:45 07/20/20 20:48 DC 07/20/20 20:53 Haloperidol (Haldol) 10 mg STAT STAT IM 07/20/20 22:56 07/20/20 22:59 DC 07/20/20 23:10 Home Med (Med Rec Complete!) ASDIRECTED XX 06/17/20 21:30 06/17/20 21:18 DC Lorazepam (Ativan) 2 mg STAT STAT IM 07/31/20 14:16 07/31/20 14:20 DC 07/31/20 14:27 Lorazepam (Ativan) 2 mg STAT STAT IM 07/20/20 20:45 07/20/20 20:48 DC 07/20/20 20:53 Lorazepam (Ativan) 2 mg STAT STAT IM 07/20/20 22:56 07/20/20 22:59 DC 07/20/20 23:11 Magnesium Hydroxide (Milk Of Magnesia) 30 ml DAILYPRN PRN PO CONSTIPATION 06/17/20 23:00 06/21/20 23:03 Miscellaneous (Unresolved Clarification Entry) SEE LABEL COMMENTS DAILY XX 07/28/20 09:00 07/28/20 15:45 DC Naproxen (Naprosyn) 250 mg Q12HP PRN PO PAIN OR DISCOMFORT 07/10/20 14:00 07/10/20 14:12 Olanzapine (ZyPREXA ZYDIS) 5 mg Q4HP PRN PO AGITATION 06/17/20 23:00 06/27/20 16:36 DC 06/26/20 20:06 Olanzapine (ZyPREXA ZYDIS) 5 mg Q6HP PRN PO ANXIETY/AGITATION 07/11/20 12:00 08/01/20 19:27 Olanzapine (ZyPREXA ZYDIS) 10 mg Q4HP PRN PO AGITATION 06/27/20 16:45 06/29/20 15:55 DC 06/28/20 21:49 Topiramate (TopAMAX) 100 mg BID PO 06/18/20 21:00 08/02/20 10:34 DC 08/01/20 20:25 Topiramate (TopAMAX) 200 mg BID PO 08/02/20 09:00 Trazodone HCl (Desyrel) 50 mg QHSP PRN PO INSOMNIA 06/17/20 23:00 07/31/20 20:23 Allergies Coded Allergies: haloperidol (Verified Adverse Reaction, Intermediate, LOCKJAW, 01/03/20) Has required & received this med many time without EPS noted risperidone (Verified Adverse Reaction, Mild, PSORIASIS, 11/26/19) SEA PEREZ MD Aug 02, 2020 16:15
[2020-08-03] MEDS: ChlorproMAZINE 100 MG TABLET PO SCH ×3 (09:00→20:38)
[2020-08-03] MEDS: CARIPRAZINE 3MG CAPSULE (VRAYLAR) PO SCH ×2 (09:00→10:02)
[2020-08-03] MEDS: TOPIRAMATE (TopAMAX) 100 MG TAB PO SCH ×3 (09:00→20:37)
[2020-08-03] MEDS: CETIRIZINE (ZyrTEC) 10 MG TAB PO SCH ×2 (09:00→10:02)
[2020-08-03] MEDS: OLANZapine ORAL DISINTEGRATING TAB 5MG PO PRN (19:41)
--- NOTE | 2020-08-03 22:30 | MHIPNPDOC ---
[facility] Progress Note Progress Note Subjective: Yareli is a 19 year old single, unemployed, undomiciled female with an extensive psychiatric history in terms of inpatient hospitalizations and self- injurious behavior, previously diagnosed with Borderline Personality disorder, Anxiety disorder and unspecified mood disorder who was brought back to the [facility] ED after reportedly ingesting 72 Valium 5 mg tablets. She displayed very poor impulse dysregulation again today, shouting at staff throughout the day, cursing very loudly, banging on doors and punching martin. All of you go to hell!! She continues to be very aggressive with her 1:1 sitter. She denies any side effects from med regimen. She does not wish to engage in the therapeutic milieu for the majority of the day. Objective: Seen and evaluated, alert and oriented times three, very psychomotor agitated, intense eye contact, appears stated age, obese, gait WNL, very disheveled/poor hygiene; Speech is loud in volume, increased in production, fast in rate; Mood: shut up bit##! Affect: labile/hostile, increased intensity and range; She denies any current passive or active suicidal ideation, intent or plan but she is very verbally/physically aggressive, endorsing homicidal ideation with intent and plan towards staff members; denies AH/VH/TH, insight, impulse control and judgment are very poor. Diagnoses: Unspecified mood disorder Unspecified anxiety disorder Borderline Personality disorder A/P: Yareli is a 19 year old single, unemployed, undomiciled female with an extensive psychiatric history in terms of inpatient hospitalizations and self- injurious behavior, previously diagnosed with Borderline Personality disorder, Anxiety disorder and unspecified mood disorder who was brought back to the [facility] ED after reportedly ingesting 72 Valium 5 mg tablets. 1)Topamax was continued at 200 mg po twice daily to better help alleviate symptoms of mood dysregulation; Thorazine was continued at 100 mg po twice daily for severe mood dysregulation and aggression, and will titrate further upwards tomorrow. 2) Continue on 1:1 observation for safety of self/others 3) Continue to be followed up by Neurology Manager on unit to be optimize patients medical comorbidities and BMI. 4) Continue to work with discharge planners and treatment team for safest discharge plan available. 5) Continue to participate in community milieu and group programming on the unit. Total time spent: 30 minutes Vital Signs Vital Signs Date Time Temp Pulse Resp B/P (MAP) Pulse Ox O2 Delivery O2 Flow Rate FiO2 08/02/20 06:00 98.3 86 16 139/67 (91) 99 Room Air Current Medications Current Medications Medications (Trade) Dose Ordered Sig/Brielle Route PRN Reason Start Time Stop Time Status Last Admin Dose Admin Acetaminophen (Tylenol Tab) 650 mg Q6HP PRN PO HEADACHE or DISCOMFORT 06/17/20 23:00 07/25/20 12:16 Al Hydrox/Mg Hydrox/Simethicone (Mylanta) 30 ml Q4HP PRN PO HEARTBURN/INDIGESTION 06/17/20 23:00 07/24/20 23:46 Aripiprazole (AbiLIFY) 2 mg QHS PO 06/18/20 21:00 06/19/20 15:03 DC 06/18/20 22:52 Cariprazine (Vraylar) 1.5 mg DAILY PO 06/25/20 09:00 06/26/20 14:08 DC 06/26/20 10:14 Cariprazine (Vraylar) 3 mg DAILY PO 06/27/20 09:00 08/03/20 10:02 Cetirizine HCl (ZyrTEC) 10 mg DAILY PO 06/29/20 09:00 08/03/20 10:02 Chlorpromazine HCl (Thorazine) 50 mg Q6HP PRN PO AGITATION/Anxiety 06/29/20 16:00 07/31/20 20:23 Chlorpromazine HCl (Thorazine) 100 mg BID PO 07/31/20 21:00 08/03/20 20:38 Chlorpromazine HCl (Thorazine) 100 mg STAT STAT PO 07/30/20 20:37 07/30/20 20:39 DC 07/30/20 20:43 Diphenhydramine HCl (Benadryl) 50 mg STAT STAT IM 07/20/20 20:45 07/20/20 20:48 DC 07/20/20 20:53 Diphenhydramine HCl (Benadryl) 50 mg STAT STAT IM 07/20/20 22:56 07/20/20 22:59 DC 07/20/20 23:10 Fluoxetine HCl (PROzac) 40 mg QAM PO 06/18/20 09:00 06/24/20 09:50 DC 06/24/20 09:43 Haloperidol (Haldol) 10 mg STAT STAT IM 07/20/20 20:45 07/20/20 20:48 DC 07/20/20 20:53 Haloperidol (Haldol) 10 mg STAT STAT IM 07/20/20 22:56 07/20/20 22:59 DC 07/20/20 23:10 Home Med (Med Rec Complete!) ASDIRECTED XX 06/17/20 21:30 06/17/20 21:18 DC Lorazepam (Ativan) 2 mg STAT STAT IM 07/31/20 14:16 07/31/20 14:20 DC 07/31/20 14:27 Lorazepam (Ativan) 2 mg STAT STAT IM 07/20/20 20:45 07/20/20 20:48 DC 07/20/20 20:53 Lorazepam (Ativan) 2 mg STAT STAT IM 07/20/20 22:56 07/20/20 22:59 DC 07/20/20 23:11 Magnesium Hydroxide (Milk Of Magnesia) 30 ml DAILYPRN PRN PO CONSTIPATION 06/17/20 23:00 06/21/20 23:03 Miscellaneous (Unresolved Clarification Entry) SEE LABEL COMMENTS DAILY XX 07/28/20 09:00 07/28/20 15:45 DC Naproxen (Naprosyn) 250 mg Q12HP PRN PO PAIN OR DISCOMFORT 07/10/20 14:00 07/10/20 14:12 Olanzapine (ZyPREXA ZYDIS) 5 mg Q4HP PRN PO AGITATION 06/17/20 23:00 06/27/20 16:36 DC 06/26/20 20:06 Olanzapine (ZyPREXA ZYDIS) 5 mg Q6HP PRN PO ANXIETY/AGITATION 07/11/20 12:00 08/03/20 19:41 Olanzapine (ZyPREXA ZYDIS) 10 mg Q4HP PRN PO AGITATION 06/27/20 16:45 06/29/20 15:55 DC 06/28/20 21:49 Topiramate (TopAMAX) 100 mg BID PO 06/18/20 21:00 08/02/20 10:34 DC 08/01/20 20:25 Topiramate (TopAMAX) 200 mg BID PO 08/02/20 09:00 08/03/20 20:37 Trazodone HCl (Desyrel) 50 mg QHSP PRN PO INSOMNIA 06/17/20 23:00 07/31/20 20:23 Allergies Coded Allergies: haloperidol (Verified Adverse Reaction, Intermediate, LOCKJAW, 01/03/20) Has required & received this med many time without EPS noted risperidone (Verified Adverse Reaction, Mild, PSORIASIS, 11/26/19) SEA PEREZ MD Aug 03, 2020 22:30
[2020-08-04] MEDS: CARIPRAZINE 3MG CAPSULE (VRAYLAR) PO SCH (10:13)
[2020-08-04] MEDS: ChlorproMAZINE 100 MG TABLET PO SCH ×2 (10:13→19:58)
[2020-08-04] MEDS: CETIRIZINE (ZyrTEC) 10 MG TAB PO SCH (10:13)
[2020-08-04] MEDS: TOPIRAMATE (TopAMAX) 100 MG TAB PO SCH ×2 (10:14→19:59)
[2020-08-04] MEDS: MAALOX 30 ML SUSP *UDC PO PRN (11:08)
--- NOTE | 2020-08-04 14:26 | MHIPNPDOC ---
[facility] Progress Note Progress Note Subjective: Yareli is a 19 year old single, unemployed, undomiciled female with an extensive psychiatric history in terms of inpatient hospitalizations and self- injurious behavior, previously diagnosed with Borderline Personality disorder, Anxiety disorder and unspecified mood disorder who was brought back to the [facility] ED after reportedly ingesting 72 Valium 5 mg tablets. Yesterday, she continued to display very poor impulse regulation; She continues to verbally castigate staff and peers. She used a plastic knife at lunch to cut herself superficially on her arm; No significant injury sustained; I just want to , I dont have to deal with any of you people! Sleep is poor with initial and middle insomnia. Endorsing passive SI. All of you can ! Objective: Seen and evaluated, alert and oriented times three, very psychomotor agitated, intense eye contact, appears stated age, obese, gait WNL, very disheveled/poor hygiene; Speech is loud in volume, increased in production, fast in rate; Mood: Bite me! Affect: labile, increased intensity and range; She denies any current passive or active suicidal ideation, intent or plan but she is very verbally/physically aggressive, endorsing homicidal ideation with intent and plan towards staff members; denies AH/VH/TH, insight, impulse control and judgment are very poor. Diagnosis: Borderline personality disorder Unspecified mood disorder A/P: Yareli is a 19 year old single, unemployed, undomiciled female with an extensive psychiatric history in terms of inpatient hospitalizations and self- injurious behavior, previously diagnosed with Borderline Personality disorder, Anxiety disorder and unspecified mood disorder who was brought back to the [facility] ED after reportedly ingesting 72 Valium 5 mg tablets. 1)Topamax was continued at 200 mg po twice daily to alleviate symptoms of mood dysregulation; Thorazine was increased to 200 mg po twice daily for severe mood dysregulation and aggression. 2) Continue on 1:1 observation for safety of self/others 3) Continue to be followed up by Filer Finish on unit to be optimize patients medical comorbidities and BMI. 4) Continue to work with discharge planners and treatment team for safest discharge plan available. 5) Continue to participate in community milieu and group programming on the unit. Total time spent: 30 minutes Vital Signs Vital Signs Date Time Temp Pulse Resp B/P (MAP) Pulse Ox O2 Delivery O2 Flow Rate FiO2 08/02/20 06:00 98.3 86 16 139/67 (91) 99 Room Air Current Medications Current Medications Medications (Trade) Dose Ordered Sig/Brielle Route PRN Reason Start Time Stop Time Status Last Admin Dose Admin Acetaminophen (Tylenol Tab) 650 mg Q6HP PRN PO HEADACHE or DISCOMFORT 06/17/20 23:00 07/25/20 12:16 Al Hydrox/Mg Hydrox/Simethicone (Mylanta) 30 ml Q4HP PRN PO HEARTBURN/INDIGESTION 06/17/20 23:00 08/04/20 11:08 Aripiprazole (AbiLIFY) 2 mg QHS PO 06/18/20 21:00 06/19/20 15:03 DC 06/18/20 22:52 Cariprazine (Vraylar) 1.5 mg DAILY PO 06/25/20 09:00 06/26/20 14:08 DC 06/26/20 10:14 Cariprazine (Vraylar) 3 mg DAILY PO 06/27/20 09:00 08/04/20 10:13 Cetirizine HCl (ZyrTEC) 10 mg DAILY PO 06/29/20 09:00 08/04/20 10:13 Chlorpromazine HCl (Thorazine) 50 mg Q6HP PRN PO AGITATION/Anxiety 06/29/20 16:00 07/31/20 20:23 Chlorpromazine HCl (Thorazine) 100 mg BID PO 07/31/20 21:00 08/04/20 12:12 DC 08/04/20 10:13 Chlorpromazine HCl (Thorazine) 100 mg STAT STAT PO 07/30/20 20:37 07/30/20 20:39 DC 07/30/20 20:43 Chlorpromazine HCl (Thorazine) 200 mg BID PO 08/04/20 21:00 Diphenhydramine HCl (Benadryl) 50 mg STAT STAT IM 07/20/20 20:45 07/20/20 20:48 DC 07/20/20 20:53 Diphenhydramine HCl (Benadryl) 50 mg STAT STAT IM 07/20/20 22:56 07/20/20 22:59 DC 07/20/20 23:10 Fluoxetine HCl (PROzac) 40 mg QAM PO 06/18/20 09:00 06/24/20 09:50 DC 06/24/20 09:43 Haloperidol (Haldol) 10 mg STAT STAT IM 07/20/20 20:45 07/20/20 20:48 DC 07/20/20 20:53 Haloperidol (Haldol) 10 mg STAT STAT IM 07/20/20 22:56 07/20/20 22:59 DC 07/20/20 23:10 Home Med (Med Rec Complete!) ASDIRECTED XX 06/17/20 21:30 06/17/20 21:18 DC Lorazepam (Ativan) 2 mg STAT STAT IM 07/31/20 14:16 07/31/20 14:20 DC 07/31/20 14:27 Lorazepam (Ativan) 2 mg STAT STAT IM 07/20/20 20:45 07/20/20 20:48 DC 07/20/20 20:53 Lorazepam (Ativan) 2 mg STAT STAT IM 07/20/20 22:56 07/20/20 22:59 DC 07/20/20 23:11 Magnesium Hydroxide (Milk Of Magnesia) 30 ml DAILYPRN PRN PO CONSTIPATION 06/17/20 23:00 06/21/20 23:03 Miscellaneous (Unresolved Clarification Entry) SEE LABEL COMMENTS DAILY XX 07/28/20 09:00 07/28/20 15:45 DC Naproxen (Naprosyn) 250 mg Q12HP PRN PO PAIN OR DISCOMFORT 07/10/20 14:00 07/10/20 14:12 Olanzapine (ZyPREXA ZYDIS) 5 mg Q4HP PRN PO AGITATION 06/17/20 23:00 06/27/20 16:36 DC 06/26/20 20:06 Olanzapine (ZyPREXA ZYDIS) 5 mg Q6HP PRN PO ANXIETY/AGITATION 07/11/20 12:00 08/03/20 19:41 Olanzapine (ZyPREXA ZYDIS) 10 mg Q4HP PRN PO AGITATION 06/27/20 16:45 06/29/20 15:55 DC 06/28/20 21:49 Topiramate (TopAMAX) 100 mg BID PO 06/18/20 21:00 08/02/20 10:34 DC 08/01/20 20:25 Topiramate (TopAMAX) 200 mg BID PO 08/02/20 09:00 08/04/20 10:14 Trazodone HCl (Desyrel) 50 mg QHSP PRN PO INSOMNIA 06/17/20 23:00 07/31/20 20:23 Allergies Coded Allergies: haloperidol (Verified Adverse Reaction, Intermediate, LOCKJAW, 01/03/20) Has required & received this med many time without EPS noted risperidone (Verified Adverse Reaction, Mild, PSORIASIS, 11/26/19) SEA PEREZ MD Aug 04, 2020 14:26
[2020-08-04] MEDS ORDERED: OLANZapine INTRAMUSCULAR 10MG VIAL IM STA (21:28)
[2020-08-04] MEDS ORDERED: LORazepam 2 MG/ML VIAL IM STA (21:28)
[2020-08-05] MEDS: CETIRIZINE (ZyrTEC) 10 MG TAB PO SCH (09:00)
[2020-08-05] MEDS: ChlorproMAZINE 100 MG TABLET PO SCH ×3 (09:00→22:14)
[2020-08-05] MEDS: CARIPRAZINE 3MG CAPSULE (VRAYLAR) PO SCH (09:00)
[2020-08-05] MEDS: TOPIRAMATE (TopAMAX) 100 MG TAB PO SCH ×2 (09:00→22:13)
[2020-08-05] MEDS: OLANZapine ORAL DISINTEGRATING TAB 5MG PO PRN ×2 (12:08→22:13)
--- NOTE | 2020-08-05 16:16 | MHIPNPDOC ---
[facility] Progress Note Progress Note DATE OF SERVICE: 08/05/20 Subjective: Yareli is a 19 year old single, unemployed, undomiciled female with an extensive psychiatric history in terms of inpatient hospitalizations and self- injurious behavior, previously diagnosed with Borderline Personality disorder, Anxiety disorder and unspecified mood disorder who was brought back to the [facility] ED after reportedly ingesting 72 Valium 5 mg tablets. She had a b mckinley day today, in terms of not having any severe episodes of behavioral dysregulation. She still was somewhat verbally aggressive but less so, compared to prior days. She is still endorsing racing thoughts and depressed/irritable mood. States that sleep is fair with initial insomnia. Appetite is good; she is attempting to participate in group programming on the unit; she did not have any episodes of self-injurious behavior. She remains on 1:1. Objective: Seen and evaluated, alert and oriented times three, very psychomotor agitated, intense eye contact, appears stated age, obese, gait WNL, very disheveled/poor hygiene; Speech is loud in volume, increased in production, fast in rate; Mood: feeling pissed off! Affect: labile, increased intensity and range; She denies any current passive or active suicidal ideation, intent or plan but she is very verbally/physically aggressive, endorsing homicidal ideation with intent and plan towards staff members; denies AH/VH/TH, insight, impulse control and judgment are very poor. Diagnosis: Borderline personality disorder Unspecified mood disorder A/P: Yareli is a 19 year old single, unemployed, undomiciled female with an extensive psychiatric history in terms of inpatient hospitalizations and self-in jurious behavior, previously diagnosed with Borderline Personality disorder, Anxiety disorder and unspecified mood disorder who was brought back to the [facility] ED after reportedly ingesting 72 Valium 5 mg tablets. 1)Topamax was continued at 200 mg po twice daily to alleviate symptoms of mood dysregulation; Thorazine was continued at 200 mg po twice daily for severe mood dysregulation and aggression. 2) Continue on 1:1 observation for safety of self/others 3) Continue to be followed up by Chief Resource Officer on unit to be optimize patients medical comorbidities and BMI. 4) Continue to work with discharge planners and treatment team for safest discharge plan available. 5) Continue to participate in community milieu and group programming on the unit. Vital Signs Vital Signs Date Time Temp Pulse Resp B/P (MAP) Pulse Ox O2 Delivery O2 Flow Rate FiO2 08/02/20 06:00 98.3 86 16 139/67 (91) 99 Room Air Current Medications Current Medications Medications (Trade) Dose Ordered Sig/Brielle Route PRN Reason Start Time Stop Time Status Last Admin Dose Admin Acetaminophen (Tylenol Tab) 650 mg Q6HP PRN PO HEADACHE or DISCOMFORT 06/17/20 23:00 07/25/20 12:16 Al Hydrox/Mg Hydrox/Simethicone (Mylanta) 30 ml Q4HP PRN PO HEARTBURN/INDIGESTION 06/17/20 23:00 08/04/20 11:08 Aripiprazole (AbiLIFY) 2 mg QHS PO 06/18/20 21:00 06/19/20 15:03 DC 06/18/20 22:52 Cariprazine (Vraylar) 1.5 mg DAILY PO 06/25/20 09:00 06/26/20 14:08 DC 06/26/20 10:14 Cariprazine (Vraylar) 3 mg DAILY PO 06/27/20 09:00 08/04/20 10:13 Cetirizine HCl (ZyrTEC) 10 mg DAILY PO 06/29/20 09:00 08/04/20 10:13 Chlorpromazine HCl (Thorazine) 50 mg Q6HP PRN PO AGITATION/Anxiety 06/29/20 16:00 07/31/20 20:23 Chlorpromazine HCl (Thorazine) 100 mg BID PO 07/31/20 21:00 08/04/20 12:12 DC 08/04/20 10:13 Chlorpromazine HCl (Thorazine) 100 mg STAT STAT PO 07/30/20 20:37 07/30/20 20:39 DC 07/30/20 20:43 Chlorpromazine HCl (Thorazine) 200 mg BID PO 08/04/20 21:00 08/04/20 19:58 Diphenhydramine HCl (Benadryl) 50 mg STAT STAT IM 07/20/20 20:45 07/20/20 20:48 DC 07/20/20 20:53 Diphenhydramine HCl (Benadryl) 50 mg STAT STAT IM 07/20/20 22:56 07/20/20 22:59 DC 07/20/20 23:10 Fluoxetine HCl (PROzac) 40 mg QAM PO 06/18/20 09:00 06/24/20 09:50 DC 06/24/20 09:43 Haloperidol (Haldol) 10 mg STAT STAT IM 07/20/20 20:45 07/20/20 20:48 DC 07/20/20 20:53 Haloperidol (Haldol) 10 mg STAT STAT IM 07/20/20 22:56 07/20/20 22:59 DC 07/20/20 23:10 Home Med (Med Rec Complete!) ASDIRECTED XX 06/17/20 21:30 06/17/20 21:18 DC Lorazepam (Ativan) 2 mg STAT STAT IM 07/31/20 14:16 07/31/20 14:20 DC 07/31/20 14:27 Lorazepam (Ativan) 2 mg STAT STAT IM 08/04/20 21:28 08/04/20 21:32 DC 08/04/20 21:59 Lorazepam (Ativan) 2 mg STAT STAT IM 07/20/20 20:45 07/20/20 20:48 DC 07/20/20 20:53 Lorazepam (Ativan) 2 mg STAT STAT IM 07/20/20 22:56 07/20/20 22:59 DC 07/20/20 23:11 Magnesium Hydroxide (Milk Of Magnesia) 30 ml DAILYPRN PRN PO CONSTIPATION 06/17/20 23:00 06/21/20 23:03 Miscellaneous (Unresolved Clarification Entry) SEE LABEL COMMENTS DAILY XX 07/28/20 09:00 07/28/20 15:45 DC Naproxen (Naprosyn) 250 mg Q12HP PRN PO PAIN OR DISCOMFORT 07/10/20 14:00 07/10/20 14:12 Olanzapine (ZyPREXA ZYDIS) 5 mg Q4HP PRN PO AGITATION 06/17/20 23:00 06/27/20 16:36 DC 06/26/20 20:06 Olanzapine (ZyPREXA ZYDIS) 5 mg Q6HP PRN PO ANXIETY/AGITATION 07/11/20 12:00 08/05/20 12:08 Olanzapine (ZyPREXA ZYDIS) 10 mg Q4HP PRN PO AGITATION 06/27/20 16:45 06/29/20 15:55 DC 06/28/20 21:49 Olanzapine (Zyprexa Intramuscular) 10 mg STAT STAT IM 08/04/20 21:28 08/04/20 21:31 DC 08/04/20 21:59 Topiramate (TopAMAX) 100 mg BID PO 06/18/20 21:00 08/02/20 10:34 DC 08/01/20 20:25 Topiramate (TopAMAX) 200 mg BID PO 08/02/20 09:00 08/04/20 19:59 Trazodone HCl (Desyrel) 50 mg QHSP PRN PO INSOMNIA 06/17/20 23:00 07/31/20 20:23 Allergies Coded Allergies: haloperidol (Verified Adverse Reaction, Intermediate, LOCKJAW, 01/03/20) Has required & received this med many time without EPS noted risperidone (Verified Adverse Reaction, Mild, PSORIASIS, 11/26/19) SEA PEREZ MD Aug 05, 2020 16:16
[2020-08-06] MEDS: TOPIRAMATE (TopAMAX) 100 MG TAB PO SCH ×2 (09:00→20:12)
[2020-08-06] MEDS: CARIPRAZINE 3MG CAPSULE (VRAYLAR) PO SCH (09:00)
[2020-08-06] MEDS: CETIRIZINE (ZyrTEC) 10 MG TAB PO SCH (09:00)
[2020-08-06] MEDS: ChlorproMAZINE 100 MG TABLET PO SCH ×2 (09:00→20:12)
[2020-08-06] MEDS: ACETAMINOPHEN TAB 650MG DOSE (2X325MG) PO PRN (21:40)
[2020-08-07] MEDS: TOPIRAMATE (TopAMAX) 100 MG TAB PO SCH ×2 (10:12→20:32)
[2020-08-07] MEDS: CARIPRAZINE 3MG CAPSULE (VRAYLAR) PO SCH (10:12)
[2020-08-07] MEDS: ChlorproMAZINE 100 MG TABLET PO SCH ×2 (10:12→20:32)
[2020-08-07] MEDS: CETIRIZINE (ZyrTEC) 10 MG TAB PO SCH (10:13)
[2020-08-07] MEDS ORDERED: chlorproMAZINE INJ 50MG/2ML AMP (J3230) IM STA (15:18)
[2020-08-07] MEDS ORDERED: diphenhydrAMINE 50MG/ML VIAL (J1200) IM STA (15:20)
[2020-08-07] MEDS ORDERED: LORazepam 2 MG/ML VIAL IM STA (15:21)
[2020-08-07 15:30] VITALS: BP 150/73
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
[2020-08-07] MEDS: ACETAMINOPHEN TAB 650MG DOSE (2X325MG) PO PRN (20:32)
[2020-08-08] MEDS: ChlorproMAZINE 100 MG TABLET PO SCH ×2 (09:00→21:00)
[2020-08-08] MEDS: CETIRIZINE (ZyrTEC) 10 MG TAB PO SCH (09:00)
[2020-08-08] MEDS: CARIPRAZINE 3MG CAPSULE (VRAYLAR) PO SCH (09:00)
[2020-08-08] MEDS: TOPIRAMATE (TopAMAX) 100 MG TAB PO SCH ×2 (09:00→21:00)
[2020-08-08] MEDS ORDERED: PILL CUTTER 1 EACH XX PRN (11:15)
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
[2020-08-08 16:20] VITALS: BP 122/70
[2020-08-08] MEDS ORDERED: LOPERAMIDE 2 MG CAPLET PO ONE (17:45)
[2020-08-08] MEDS ORDERED: LOPERAMIDE 2 MG CAPLET PO PRN (17:45)
[2020-08-08] MEDS ORDERED: ChlorproMAZINE 100 MG TABLET PO SCH (21:00)
[2020-08-09] MEDS: CETIRIZINE (ZyrTEC) 10 MG TAB PO SCH (09:00)
[2020-08-09] MEDS: ChlorproMAZINE 100 MG TABLET PO SCH ×2 (09:00→21:00)
[2020-08-09] MEDS: CARIPRAZINE 3MG CAPSULE (VRAYLAR) PO SCH (09:00)
[2020-08-09] MEDS: TOPIRAMATE (TopAMAX) 100 MG TAB PO SCH ×2 (09:00→21:55)
--- NOTE | 2020-08-09 19:15 | MHIPNPDOC ---
[facility] Progress Note Progress Note DATE OF SERVICE: 08/09/20 HISTORY: As per ED report: "Pt well known from prior psych admissions and incessant ED visits, reports she was at [facility] today and ingested Valium pills "in the bathroom" with intention of killing self. PT states "I was at my breaking point", adds that she was just discharged from [facility] earlier today and returned to [facility]. Pt states she had been staying in a Transitional living residence in [facility] "but I signed myself out", pt vague about why, states "I don't like rules and they were disrespecting me there". Pt states she is now homeless, appears disheveled/unkempt, states she is still feeling suicidal, denies HI/AH/VH, has outpt tx at [facility] but unknown if she has been compliant." VITAL SIGNS: See below. NEW TEST RESULTS: See below CURRENT MEDICATIONS: See below. MENTAL STATUS EXAMINATION: Patient is a 19-year old female, who is alert, disheveled, with poor hygiene, dressed in hospital clothes. Speech: Is normal in r/t/v, spontaneous and fluent. Language skills are intact. Thought processes including: linear and coherent at this time. Thought content: negative for suicidal or homicidal ideation, denies thought delusions at this time. Description of associations: intact Description of abnormal or psychotic thoughts: The patient denies feeling paranoid today, bizarre or grandiose delusions. She denies suicidal ideation at this time but report s she has SI "here and there", without a plan, without intent. Judgment: poor. Insight: poor. Orientation: x 3. Recent and remote memory: intact. Attention span and concentration: fair. Language: adequate. Fund of knowledge: average. Mood: euthymic at this time. Affect: congruent with mood. DIAGNOSES: 1. Unspecified impulse/conduct disorder. 2. Antisocial personality disorder/borderline personality disorder. 3. Unspecified mood disorder ASSESSMENT: Yareli was calm today when I assessed her using zoom due to coronavirus pandemic. She said that she is Ok even when she "apparently will have to be here for the next 60 days". She says that she "saw the papers" and by that, she means the Court documents that allow the [facility] to keep Yareli for other 60 days. She says she doesn't feel bad about that, she sort of expected it and she better adjusts to the idea. She mentions that she was not accepted by [facility] and she is not surprised, she says. Mentions that has been talking to her brother who, sometimes can be angry and make "nasty" comments to her. When he acts this way, she becomes upset and is more difficult for her to deal with her own problems. She mentions that now, she is opening up a lot, like she never di before, but she feels forced to do that because she had to remain at the Unit all this time. She says that today she is not feeling angry or irritable. She was able to CFS and she said that she will let her Nurse know if she feles unsafe but at this moment, she says, she feels safe at [facility]. She is not in danger to self or others at this time. MANAGEMENT PLAN: Will continue with current treatment plan TIME SPENT: 20 minutes. Vital Signs Vital Signs Date Time Temp Pulse Resp B/P (MAP) Pulse Ox O2 Delivery O2 Flow Rate FiO2 08/08/20 16:20 98.1 100 18 122/70 (87) 100 Room Air Current Medications Current Medications Medications (Trade) Dose Ordered Sig/Brielle Route PRN Reason Start Time Stop Time Status Last Admin Dose Admin Acetaminophen (Tylenol Tab) 650 mg Q6HP PRN PO HEADACHE or DISCOMFORT 06/17/20 23:00 08/07/20 20:32 Al Hydrox/Mg Hydrox/Simethicone (Mylanta) 30 ml Q4HP PRN PO HEARTBURN/INDIGESTION 06/17/20 23:00 08/04/20 11:08 Aripiprazole (AbiLIFY) 2 mg QHS PO 06/18/20 21:00 06/19/20 15:03 DC 06/18/20 22:52 Cariprazine (Vraylar) 1.5 mg DAILY PO 06/25/20 09:00 06/26/20 14:08 DC 06/26/20 10:14 Cariprazine (Vraylar) 3 mg DAILY PO 06/27/20 09:00 08/04/20 10:13 Cetirizine HCl (ZyrTEC) 10 mg DAILY PO 06/29/20 09:00 08/04/20 10:13 Chlorpromazine HCl (Thorazine) 50 mg Q6HP PRN PO AGITATION/Anxiety 06/29/20 16:00 07/31/20 20:23 Chlorpromazine HCl (Thorazine) 50 mg STAT STAT IM 08/07/20 15:18 08/07/20 15:21 DC 08/07/20 15:28 Chlorpromazine HCl (Thorazine) 100 mg BID PO 07/31/20 21:00 08/04/20 12:12 DC 08/04/20 10:13 Chlorpromazine HCl (Thorazine) 100 mg STAT STAT PO 07/30/20 20:37 07/30/20 20:39 DC 07/30/20 20:43 Chlorpromazine HCl (Thorazine) 200 mg BID PO 08/04/20 21:00 08/08/20 11:01 DC 08/07/20 20:32 Chlorpromazine HCl (Thorazine) 250 mg BID PO 08/08/20 21:00 Chlorpromazine HCl (Thorazine) 300 mg BID PO 08/08/20 21:00 08/08/20 11:04 DC Diphenhydramine HCl (Benadryl) 50 mg STAT STAT IM 08/07/20 15:20 08/07/20 15:22 DC 08/07/20 15:28 Diphenhydramine HCl (Benadryl) 50 mg STAT STAT IM 07/20/20 20:45 07/20/20 20:48 DC 07/20/20 20:53 Diphenhydramine HCl (Benadryl) 50 mg STAT STAT IM 07/20/20 22:56 07/20/20 22:59 DC 07/20/20 23:10 Fluoxetine HCl (PROzac) 40 mg QAM PO 06/18/20 09:00 06/24/20 09:50 DC 06/24/20 09:43 Haloperidol (Haldol) 10 mg STAT STAT IM 07/20/20 20:45 07/20/20 20:48 DC 07/20/20 20:53 Haloperidol (Haldol) 10 mg STAT STAT IM 07/20/20 22:56 07/20/20 22:59 DC 07/20/20 23:10 Home Med (Med Rec Complete!) ASDIRECTED XX 06/17/20 21:30 06/17/20 21:18 DC Loperamide HCl (Imodium) 2 mg ASDIRECTED PRN PO DIARRHEA 08/08/20 17:45 Lorazepam (Ativan) 2 mg STAT STAT IM 07/31/20 14:16 07/31/20 14:20 DC 07/31/20 14:27 Lorazepam (Ativan) 2 mg STAT STAT IM 08/04/20 21:28 08/04/20 21:32 DC 08/04/20 21:59 Lorazepam (Ativan) 2 mg STAT STAT IM 08/07/20 15:21 08/07/20 15:23 DC 08/07/20 15:28 Lorazepam (Ativan) 2 mg STAT STAT IM 07/20/20 20:45 07/20/20 20:48 DC 07/20/20 20:53 Lorazepam (Ativan) 2 mg STAT STAT IM 07/20/20 22:56 07/20/20 22:59 DC 07/20/20 23:11 Magnesium Hydroxide (Milk Of Magnesia) 30 ml DAILYPRN PRN PO CONSTIPATION 06/17/20 23:00 06/21/20 23:03 Miscellaneous (Unresolved Clarification Entry) SEE LABEL COMMENTS DAILY XX 07/28/20 09:00 07/28/20 15:45 DC Naproxen (Naprosyn) 250 mg Q12HP PRN PO PAIN OR DISCOMFORT 07/10/20 14:00 07/10/20 14:12 Olanzapine (ZyPREXA ZYDIS) 5 mg Q4HP PRN PO AGITATION 06/17/20 23:00 06/27/20 16:36 DC 06/26/20 20:06 Olanzapine (ZyPREXA ZYDIS) 5 mg Q6HP PRN PO ANXIETY/AGITATION 07/11/20 12:00 08/05/20 12:08 Olanzapine (ZyPREXA ZYDIS) 10 mg Q4HP PRN PO AGITATION 06/27/20 16:45 06/29/20 15:55 DC 06/28/20 21:49 Olanzapine (Zyprexa Intramuscular) 10 mg STAT STAT IM 08/04/20 21:28 08/04/20 21:31 DC 08/04/20 21:59 Topiramate (TopAMAX) 100 mg BID PO 06/18/20 21:00 08/02/20 10:34 DC 08/01/20 20:25 Topiramate (TopAMAX) 200 mg BID PO 08/02/20 09:00 08/08/20 21:00 Trazodone HCl (Desyrel) 50 mg QHSP PRN PO INSOMNIA 06/17/20 23:00 07/31/20 20:23 Allergies Coded Allergies: haloperidol (Verified Adverse Reaction, Intermediate, LOCKJAW, 01/03/20) Has required & received this med many time without EPS noted risperidone (Verified Adverse Reaction, Mild, PSORIASIS, 11/26/19) DAVONTE OLIVEROS MD Aug 09, 2020 19:06
[2020-08-10] MEDS: CARIPRAZINE 3MG CAPSULE (VRAYLAR) PO SCH (09:00)
[2020-08-10] MEDS: CETIRIZINE (ZyrTEC) 10 MG TAB PO SCH (09:00)
[2020-08-10] MEDS: ChlorproMAZINE 100 MG TABLET PO SCH ×2 (09:00→21:00)
[2020-08-10] MEDS: TOPIRAMATE (TopAMAX) 100 MG TAB PO SCH ×2 (09:00→21:00)
[2020-08-10] MEDS: OLANZapine ORAL DISINTEGRATING TAB 5MG PO PRN (12:31)
[2020-08-10] MEDS: LORazepam 1 MG TAB PO PRN (15:39)
--- NOTE | 2020-08-10 18:08 | MHIPNPDOC ---
[facility] Progress Note Progress Note DATE OF SERVICE: 08/10/20--- Patient was assessed using ZOOM due to Coronavirus pandemic HISTORY: As per ED report: "Pt well known from prior psych admissions and incessant ED visits, reports she was at [facility] today and ingested Valium pills "in the bathroom" with intention of killing self. PT states "I was at my breaking point", adds that she was just discharged from [facility] earlier today and returned to [facility] Pt sta marvin she had been staying in a Transitional living residence in [facility] "but I signed myself out", pt vague about why, states "I don't like rules and they were disrespecting me there". Pt states she is now homeless, appears disheveled/unkempt, states she is still feeling suicidal, denies HI/AH/VH, has outpt tx at [facility] but unknown if she has been compliant." VITAL SIGNS: See below. NEW TEST RESULTS: See below CURRENT MEDICATIONS: See below. MENTAL STATUS EXAMINATION: Patient is a 19-year old female, who is alert, disheveled, with poor hygiene, dressed in hospital clothes. Speech: Is normal in r/t/v, spontaneous and fluent. Language skills are intact. Thought processes including: linear and coherent at this time. Thought content: negative for suicidal or homicidal ideation, denies thought delusions at this time. Description of associations: intact Description of abnormal or psychotic thoughts: The patient reports feeling very anxious today and she admits that she was trying to put her shirt around her neck as she usually does, when she attempts to kill herself. Judgment: poor. Insight: poor. Orientation: x 3. Recent and remote memory: intact. Attention span and concentration: fair. Language: adequate. Fund of knowledge: average. Mood: anxious/sad/depressed. Affect: congruent with mood. DIAGNOSES: 1. Unspecified impulse/conduct disorder. 2. Antisocial personality disorder/borderline personality disorder. 3. Unspecified mood disorder ASSESSMENT: She says she thinks she is depressed, she says she fell asleep around midnight and woke up around 10 a.m. She felt nauseous this morning, she thinks she is anxious. She says she remembered about a past experience that made her feel anxious. Initially, she said she would talk about it and then she said she wouldn't, she said it was too painful. Her Nurse, Varsha Link said they had found her with a shirt wrapped around her neck, she says the trigger were the thoughts about the past experience. She received counseling about communicating with staff when she feels unsafe, this technical writer and editor provided support telling her that she is worthy and that we care about her and don't want her to hurt herself. Tried to give her hope. Yareli says that she has felt overwhelmed lately, she has reported talking to her brother (who has a substance abuse problem and anger problems) and feeling affected by it. MANAGEMENT PLAN: Will continue with current treatment plan TIME SPENT: 20 minutes. Vital Signs Vital Signs Date Time Temp Pulse Resp B/P (MAP) Pulse Ox O2 Delivery O2 Flow Rate FiO2 08/10/20 10:17 Room Air 08/10/20 06:45 14 08/08/20 16:20 98.1 100 122/70 (87) 100 Current Medications Current Medications Medications (Trade) Dose Ordered Sig/Brielle Route PRN Reason Start Time Stop Time Status Last Admin Dose Admin Acetaminophen (Tylenol Tab) 650 mg Q6HP PRN PO HEADACHE or DISCOMFORT 06/17/20 23:00 08/07/20 20:32 Al Hydrox/Mg Hydrox/Simethicone (Mylanta) 30 ml Q4HP PRN PO HEARTBURN/INDIGESTION 06/17/20 23:00 08/04/20 11:08 Aripiprazole (AbiLIFY) 2 mg QHS PO 06/18/20 21:00 06/19/20 15:03 DC 06/18/20 22:52 Cariprazine (Vraylar) 1.5 mg DAILY PO 06/25/20 09:00 06/26/20 14:08 DC 06/26/20 10:14 Cariprazine (Vraylar) 3 mg DAILY PO 06/27/20 09:00 08/04/20 10:13 Cetirizine HCl (ZyrTEC) 10 mg DAILY PO 06/29/20 09:00 08/04/20 10:13 Chlorpromazine HCl (Thorazine) 50 mg Q6HP PRN PO AGITATION/Anxiety 06/29/20 16:00 07/31/20 20:23 Chlorpromazine HCl (Thorazine) 50 mg STAT STAT IM 08/07/20 15:18 08/07/20 15:21 DC 08/07/20 15:28 Chlorpromazine HCl (Thorazine) 100 mg BID PO 07/31/20 21:00 08/04/20 12:12 DC 08/04/20 10:13 Chlorpromazine HCl (Thorazine) 100 mg STAT STAT PO 07/30/20 20:37 07/30/20 20:39 DC 07/30/20 20:43 Chlorpromazine HCl (Thorazine) 200 mg BID PO 08/04/20 21:00 08/08/20 11:01 DC 08/07/20 20:32 Chlorpromazine HCl (Thorazine) 250 mg BID PO 08/08/20 21:00 Chlorpromazine HCl (Thorazine) 300 mg BID PO 08/08/20 21:00 08/08/20 11:04 DC Diphenhydramine HCl (Benadryl) 50 mg STAT STAT IM 08/07/20 15:20 08/07/20 15:22 DC 08/07/20 15:28 Diphenhydramine HCl (Benadryl) 50 mg STAT STAT IM 07/20/20 20:45 07/20/20 20:48 DC 07/20/20 20:53 Diphenhydramine HCl (Benadryl) 50 mg STAT STAT IM 07/20/20 22:56 07/20/20 22:59 DC 07/20/20 23:10 Fluoxetine HCl (PROzac) 40 mg QAM PO 06/18/20 09:00 06/24/20 09:50 DC 06/24/20 09:43 Haloperidol (Haldol) 10 mg STAT STAT IM 07/20/20 20:45 07/20/20 20:48 DC 07/20/20 20:53 Haloperidol (Haldol) 10 mg STAT STAT IM 07/20/20 22:56 07/20/20 22:59 DC 07/20/20 23:10 Home Med (Med Rec Complete!) ASDIRECTED XX 06/17/20 21:30 06/17/20 21:18 DC Loperamide HCl (Imodium) 2 mg ASDIRECTED PRN PO DIARRHEA 08/08/20 17:45 Lorazepam (Ativan) 1 mg BIDP PRN PO ANXIETY 08/10/20 12:00 Lorazepam (Ativan) 2 mg STAT STAT IM 07/31/20 14:16 07/31/20 14:20 DC 07/31/20 14:27 Lorazepam (Ativan) 2 mg STAT STAT IM 08/04/20 21:28 08/04/20 21:32 DC 08/04/20 21:59 Lorazepam (Ativan) 2 mg STAT STAT IM 08/07/20 15:21 08/07/20 15:23 DC 08/07/20 15:28 Lorazepam (Ativan) 2 mg STAT STAT IM 07/20/20 20:45 07/20/20 20:48 DC 07/20/20 20:53 Lorazepam (Ativan) 2 mg STAT STAT IM 07/20/20 22:56 07/20/20 22:59 DC 07/20/20 23:11 Magnesium Hydroxide (Milk Of Magnesia) 30 ml DAILYPRN PRN PO CONSTIPATION 06/17/20 23:00 06/21/20 23:03 Miscellaneous (Unresolved Clarification Entry) SEE LABEL COMMENTS DAILY XX 07/28/20 09:00 07/28/20 15:45 DC Naproxen (Naprosyn) 250 mg Q12HP PRN PO PAIN OR DISCOMFORT 07/10/20 14:00 07/10/20 14:12 Olanzapine (ZyPREXA ZYDIS) 5 mg Q4HP PRN PO AGITATION 06/17/20 23:00 06/27/20 16:36 DC 06/26/20 20:06 Olanzapine (ZyPREXA ZYDIS) 5 mg Q6HP PRN PO ANXIETY/AGITATION 07/11/20 12:00 08/10/20 12:31 Olanzapine (ZyPREXA ZYDIS) 10 mg Q4HP PRN PO AGITATION 06/27/20 16:45 06/29/20 15:55 DC 06/28/20 21:49 Olanzapine (Zyprexa Intramuscular) 10 mg STAT STAT IM 08/04/20 21:28 08/04/20 21:31 DC 08/04/20 21:59 Topiramate (TopAMAX) 100 mg BID PO 06/18/20 21:00 08/02/20 10:34 DC 08/01/20 20:25 Topiramate (TopAMAX) 200 mg BID PO 08/02/20 09:00 08/09/20 21:55 Trazodone HCl (Desyrel) 50 mg QHSP PRN PO INSOMNIA 06/17/20 23:00 07/31/20 20:23 Allergies Coded Allergies: haloperidol (Verified Adverse Reaction, Intermediate, LOCKJAW, 01/03/20) Has required & received this med many time without EPS noted risperidone (Verified Adverse Reaction, Mild, PSORIASIS, 11/26/19) DAVONTE OLIVEROS MD Aug 10, 2020 13:37
[2020-08-10] MEDS ORDERED: HALOPERIDOL 5MG/ML VIAL (J1630 PER 1) IM STA (21:01)
[2020-08-10] MEDS ORDERED: diphenhydrAMINE 50MG/ML VIAL (J1200) IM STA (21:01)
[2020-08-10] MEDS ORDERED: LORazepam 2 MG/ML VIAL IM STA (21:01)
[2020-08-10 21:45] VITALS: BP 152/67
[2020-08-10 22:00] VITALS: BP 120/82
--- NOTE | 2020-08-10 22:02 | IPNPDOC ---
Text Note Date of Service The patient was seen on 08/10/20. NOTE TIME OF SERVICE 920PM PSYCH CERTIFICATION FACE TO FACE: yes PHYSICIAN ASSESSMENT: The patient was being verbally abusive to wards staff and threatened to hang herself with bedsheets Vital Signs Date Time Temp Pulse Resp B/P (MAP) Pulse Ox O2 Delivery O2 Flow Rate FiO2 08/10/20 21:45 96 18 152/67 100 Room Air 08/10/20 10:17 Room Air 08/10/20 06:45 14 GEN: irritable / yelling MSK: extremities in restraints REASON FOR RESTRAINT: The patient was a danger to the staff. DE-ESCALATION INTERVENTIONS ATTEMPTED BEFORE USE OF RESTRAINTS: verbal redirection [MECHANICAL AND/OR CHEMICAL] RESTRAINTS USED: Both LENGTH OF TIME ORDERED IN RESTRAINTS: 4 hours WHEN TO DISCONTINUE RESTRAINTS: When the patient is no longer a threat to herself or others Post evaluation of restraint due in 24 hours. VS,Fishbone, I+O VS, Fishbone, I+O Vital Signs Date Time Temp Pulse Resp B/P (MAP) Pulse Ox O2 Delivery O2 Flow Rate FiO2 08/10/20 21:45 96 18 152/67 100 Room Air 08/08/20 16:20 98.1 STEFANY CONLEY MD Aug 10, 2020 22:02
[2020-08-10 22:15] VITALS: BP 123/59
[2020-08-10 22:30] VITALS: BP 126/56
[2020-08-11] MEDS: CARIPRAZINE 3MG CAPSULE (VRAYLAR) PO SCH (09:00)
[2020-08-11] MEDS: ChlorproMAZINE 100 MG TABLET PO SCH ×2 (09:00→21:13)
[2020-08-11] MEDS: CETIRIZINE (ZyrTEC) 10 MG TAB PO SCH (09:00)
[2020-08-11] MEDS: TOPIRAMATE (TopAMAX) 100 MG TAB PO SCH ×2 (09:00→21:00)
--- NOTE | 2020-08-11 17:47 | MHIPNPDOC ---
[facility] Progress Note Progress Note DATE OF SERVICE: 08/11/20--- Patient was assessed using ZOOM due to Coronavirus pandemic HISTORY: As per ED report: "Pt well known from prior psych admissions and incessant ED visits, reports she was at [facility] today and ingested Valium pills "in the bathroom" with intention of killing self. PT states "I was at my breaking point", adds that she was just discharged from [facility] earlier today and returned to [facility]. Pt sta marvin she had been staying in a Transitional living residence in [facility] "but I signed myself out", pt vague about why, states "I don't like rules and they were disrespecting me there". Pt states she is now homeless, appears disheveled/unkempt, states she is still feeling suicidal, denies HI/AH/VH, has outpt tx at [facility] but unknown if she has been compliant." VITAL SIGNS: See below. NEW TEST RESULTS: See below CURRENT MEDICATIONS: See below. MENTAL STATUS EXAMINATION: Patient is a 19-year old female, who is alert, disheveled, with poor hygiene, dressed in hospital clothes. Speech: Is normal in r/t/v, spontaneous and fluent. Language skills are intact. Thought processes including: linear and coherent Thought content: negative for ac suicidal or homicidal ideation, denies thought delusions at this time but admits to have depressive thoughts Description of associations: intact Description of abnormal or psychotic thoughts: She says she is feeling depressed, denies SI/HI but reports attempting suicide last night Judgment: poor. Insight: poor. Orientation: x 3. Recent and remote memory: intact. Attention span and concentration: fair. Language: adequate. Fund of knowledge: average. Mood: sad/depressed. Affect: congruent with mood. DIAGNOSES: 1. Unspecified impulse/conduct disorder. 2. Antisocial personality disorder/borderline personality disorder. 3. Unspecified mood disorder ASSESSMENT: The patient was coded last night after she was trying to kill herself, apparently with her shirt, as she has threatened doing it in the past. She says she went "really deep into her dark thoughts" and that's why she did it,b ut she says she never planned on doing it, it was an impulsive action. Reports she is tired of taking medications, says she feels liek a drug addict, "popping pills". discussed with her medication compliance, encouraged her to take her pills and to apply her coping skills. She was not suicidal/homicidal or psychotic at this time. MANAGEMENT PLAN: Will continue with current treatment plan TIME SPENT: 20 minutes. Vital Signs Vital Signs Date Time Temp Pulse Resp B/P (MAP) Pulse Ox O2 Delivery O2 Flow Rate FiO2 08/11/20 08:01 Room Air 08/10/20 22:30 97.8 96 16 126/56 100 Current Medications Current Medications Medications (Trade) Dose Ordered Sig/Brielle Route PRN Reason Start Time Stop Time Status Last Admin Dose Admin Acetaminophen (Tylenol Tab) 650 mg Q6HP PRN PO HEADACHE or DISCOMFORT 06/17/20 23:00 08/07/20 20:32 Al Hydrox/Mg Hydrox/Simethicone (Mylanta) 30 ml Q4HP PRN PO HEARTBURN/INDIGESTION 06/17/20 23:00 08/04/20 11:08 Aripiprazole (AbiLIFY) 2 mg QHS PO 06/18/20 21:00 06/19/20 15:03 DC 06/18/20 22:52 Cariprazine (Vraylar) 1.5 mg DAILY PO 06/25/20 09:00 06/26/20 14:08 DC 06/26/20 10:14 Cariprazine (Vraylar) 3 mg DAILY PO 06/27/20 09:00 08/04/20 10:13 Cetirizine HCl (ZyrTEC) 10 mg DAILY PO 06/29/20 09:00 08/04/20 10:13 Chlorpromazine HCl (Thorazine) 50 mg Q6HP PRN PO AGITATION/Anxiety 06/29/20 16:00 07/31/20 20:23 Chlorpromazine HCl (Thorazine) 50 mg STAT STAT IM 08/07/20 15:18 08/07/20 15:21 DC 08/07/20 15:28 Chlorpromazine HCl (Thorazine) 100 mg BID PO 07/31/20 21:00 08/04/20 12:12 DC 08/04/20 10:13 Chlorpromazine HCl (Thorazine) 100 mg STAT STAT PO 07/30/20 20:37 07/30/20 20:39 DC 07/30/20 20:43 Chlorpromazine HCl (Thorazine) 200 mg BID PO 08/04/20 21:00 08/08/20 11:01 DC 08/07/20 20:32 Chlorpromazine HCl (Thorazine) 250 mg BID PO 08/08/20 21:00 Chlorpromazine HCl (Thorazine) 300 mg BID PO 08/08/20 21:00 08/08/20 11:04 DC Diphenhydramine HCl (Benadryl) 50 mg STAT STAT IM 08/07/20 15:20 08/07/20 15:22 DC 08/07/20 15:28 Diphenhydramine HCl (Benadryl) 50 mg STAT STAT IM 08/10/20 21:01 08/10/20 21:05 DC 08/10/20 21:20 Diphenhydramine HCl (Benadryl) 50 mg STAT STAT IM 07/20/20 20:45 07/20/20 20:48 DC 07/20/20 20:53 Diphenhydramine HCl (Benadryl) 50 mg STAT STAT IM 07/20/20 22:56 07/20/20 22:59 DC 07/20/20 23:10 Fluoxetine HCl (PROzac) 40 mg QAM PO 06/18/20 09:00 06/24/20 09:50 DC 06/24/20 09:43 Haloperidol (Haldol) 10 mg STAT STAT IM 08/10/20 21:01 08/10/20 21:05 DC 08/10/20 21:20 Haloperidol (Haldol) 10 mg STAT STAT IM 07/20/20 20:45 07/20/20 20:48 DC 07/20/20 20:53 Haloperidol (Haldol) 10 mg STAT STAT IM 07/20/20 22:56 07/20/20 22:59 DC 07/20/20 23:10 Home Med (Med Rec Complete!) ASDIRECTED XX 06/17/20 21:30 06/17/20 21:18 DC Loperamide HCl (Imodium) 2 mg ASDIRECTED PRN PO DIARRHEA 08/08/20 17:45 Lorazepam (Ativan) 1 mg BIDP PRN PO ANXIETY 08/10/20 12:00 08/10/20 15:39 Lorazepam (Ativan) 2 mg STAT STAT IM 07/31/20 14:16 07/31/20 14:20 DC 07/31/20 14:27 Lorazepam (Ativan) 2 mg STAT STAT IM 08/04/20 21:28 08/04/20 21:32 DC 08/04/20 21:59 Lorazepam (Ativan) 2 mg STAT STAT IM 08/07/20 15:21 08/07/20 15:23 DC 08/07/20 15:28 Lorazepam (Ativan) 2 mg STAT STAT IM 08/10/20 21:01 08/10/20 21:05 DC 08/10/20 21:21 Lorazepam (Ativan) 2 mg STAT STAT IM 07/20/20 20:45 07/20/20 20:48 DC 07/20/20 20:53 Lorazepam (Ativan) 2 mg STAT STAT IM 07/20/20 22:56 07/20/20 22:59 DC 07/20/20 23:11 Magnesium Hydroxide (Milk Of Magnesia) 30 ml DAILYPRN PRN PO CONSTIPATION 06/17/20 23:00 06/21/20 23:03 Miscellaneous (Unresolved Clarification Entry) SEE LABEL COMMENTS DAILY XX 07/28/20 09:00 07/28/20 15:45 DC Naproxen (Naprosyn) 250 mg Q12HP PRN PO PAIN OR DISCOMFORT 07/10/20 14:00 07/10/20 14:12 Olanzapine (ZyPREXA ZYDIS) 5 mg Q4HP PRN PO AGITATION 06/17/20 23:00 06/27/20 16:36 DC 06/26/20 20:06 Olanzapine (ZyPREXA ZYDIS) 5 mg Q6HP PRN PO ANXIETY/AGITATION 07/11/20 12:00 08/10/20 12:31 Olanzapine (ZyPREXA ZYDIS) 10 mg Q4HP PRN PO AGITATION 06/27/20 16:45 06/29/20 15:55 DC 06/28/20 21:49 Olanzapine (Zyprexa Intramuscular) 10 mg STAT STAT IM 08/04/20 21:28 08/04/20 21:31 DC 08/04/20 21:59 Topiramate (TopAMAX) 100 mg BID PO 06/18/20 21:00 08/02/20 10:34 DC 08/01/20 20:25 Topiramate (TopAMAX) 200 mg BID PO 08/02/20 09:00 08/09/20 21:55 Trazodone HCl (Desyrel) 50 mg QHSP PRN PO INSOMNIA 06/17/20 23:00 07/31/20 20:23 Allergies Coded Allergies: haloperidol (Verified Adverse Reaction, Intermediate, LOCKJAW, 01/03/20) Has required & received this med many time without EPS noted risperidone (Verified Adverse Reaction, Mild, PSORIASIS, 11/26/19) DAVONTE OLIVEROS MD Aug 11, 2020 15:16
[2020-08-11] MEDS: OLANZapine ORAL DISINTEGRATING TAB 5MG PO PRN (19:19)
[2020-08-11] MEDS: LORazepam 1 MG TAB PO PRN (21:14)
[2020-08-11] MEDS ORDERED: LORazepam 2 MG/ML VIAL IM STA ×2 (21:21→21:58)
[2020-08-11] MEDS ORDERED: diphenhydrAMINE 50MG/ML VIAL (J1200) IM STA ×2 (21:21→21:58)
[2020-08-11] MEDS ORDERED: HALOPERIDOL 5MG/ML VIAL (J1630 PER 1) IM STA ×2 (21:21→21:58)
[2020-08-11] MEDS ORDERED: HALOPERIDOL 5MG/ML VIAL (J1630 PER 1) As Ordered ONE (21:23)
[2020-08-11] MEDS ORDERED: diphenhydrAMINE 50MG/ML VIAL (J1200) As Ordered ONE (21:23)
[2020-08-11] MEDS ORDERED: LORazepam 2 MG/ML VIAL As Ordered ONE (21:24)
--- NOTE | 2020-08-11 21:45 | IPNPDOC ---
Text Note Date of Service The patient was seen on 08/11/20. NOTE TIME OF SERVICE 930PM PSYCH CERTIFICATION FACE TO FACE: yes PHYSICIAN ASSESSMENT: Per d/w nursing staff the patient was using forks to harm herself, was not following instructions and was yelling at and threatening staff therefore a code 25 was called. At the time of my encounter the patient yelled at me and said "I don't want to speak to you." Vitals pending patient's cooperation GEN: irritable / yelling MSK: extremities in restraints REASON FOR RESTRAINT: The patient was a danger to herself and staff. DE-ESCALATION INTERVENTIONS ATTEMPTED BEFORE USE OF RESTRAINTS: verbal redirection [MECHANICAL AND/OR CHEMICAL] RESTRAINTS USED: Both LENGTH OF TIME ORDERED IN RESTRAINTS: 4 hours WHEN TO DISCONTINUE RESTRAINTS: When the patient is no longer a threat to herself or others Post evaluation of restraint due in 24 hours. VS,Fishbone, I+O VS, Fishbone, I+O Vital Signs Date Time Temp Pulse Resp B/P (MAP) Pulse Ox O2 Delivery O2 Flow Rate FiO2 08/11/20 08:01 Room Air 08/10/20 22:30 97.8 96 16 126/56 100 STEFANY CONLEY MD Aug 11, 2020 21:45
[2020-08-12] MEDS: TOPIRAMATE (TopAMAX) 100 MG TAB PO SCH ×2 (12:27→20:29)
[2020-08-12] MEDS: CARIPRAZINE 3MG CAPSULE (VRAYLAR) PO SCH (12:27)
[2020-08-12] MEDS: CETIRIZINE (ZyrTEC) 10 MG TAB PO SCH (12:27)
[2020-08-12] MEDS: ChlorproMAZINE 100 MG TABLET PO SCH ×2 (12:27→20:29)
[2020-08-12] MEDS: OLANZapine ORAL DISINTEGRATING TAB 5MG PO PRN (20:11)
[2020-08-13] MEDS: CETIRIZINE (ZyrTEC) 10 MG TAB PO SCH ×2 (09:00→12:05)
[2020-08-13] MEDS: ChlorproMAZINE 100 MG TABLET PO SCH ×4 (09:00→20:38)
[2020-08-13] MEDS: TOPIRAMATE (TopAMAX) 100 MG TAB PO SCH ×3 (09:00→20:43)
[2020-08-13] MEDS ORDERED: ChlorproMAZINE 100 MG TABLET PO SCH ×2 (09:00→12:11)
[2020-08-13] MEDS: CARIPRAZINE 3MG CAPSULE (VRAYLAR) PO SCH ×2 (09:00→12:04)
[2020-08-13] MEDS: chlorproMAZINE 25 MG TABLET PO SCH ×2 (12:18→20:38)
[2020-08-14] MEDS: chlorproMAZINE 25 MG TABLET PO SCH ×3 (09:30→22:56)
[2020-08-14] MEDS: TOPIRAMATE (TopAMAX) 100 MG TAB PO SCH ×3 (09:30→22:56)
[2020-08-14] MEDS: CARIPRAZINE 3MG CAPSULE (VRAYLAR) PO SCH (09:30)
[2020-08-14] MEDS: CETIRIZINE (ZyrTEC) 10 MG TAB PO SCH (09:30)
[2020-08-14] MEDS: ChlorproMAZINE 100 MG TABLET PO SCH ×3 (09:30→22:56)
--- NOTE | 2020-08-14 21:18 | MHIPNPDOC ---
[facility] Progress Note Progress Note DATE OF SERVICE: 08/14/20 HISTORY: As per ED report: "Pt well known from prior psych admissions and incessant ED visits, reports she was at [facility] today and ingested Valium pills "in the bathroom" with intention of killing self. PT states "I was at my breaking point", adds that she was just discharged from [facility] earlier today and returned to [facility]. Pt states she had been staying in a Transitional living residence in [facility] "but I signed myself out", pt vague about why, states "I don't like rules and they were disrespecting me there". Pt states she is now homeless, appears disheveled/unkempt, states she is still feeling suicidal, denies HI/AH/VH, has outpt tx at [facility] but unknown if she has been compliant." VITAL SIGNS: See below. NEW TEST RESULTS: See below CURRENT MEDICATIONS: See below. MENTAL STATUS EXAMINATION: Patient is a 19-year old female, who is alert, disheveled, with poor hygiene, dressed in hospital clothes. Speech: Is normal in r/t/v, spontaneous and fluent. Language skills are intact. Thought processes including: linear and coherent Thought content: negative for ac suicidal or homicidal ideation, denies thought delusions at this time but admits to have depressive thoughts because she wants to be discharged or let out of being on a 1:1 sitter Description of associations: intact Description of abnormal or psychotic thoughts: She says she is feeling depressed, denies SI/HI , reports anxious thoughts Judgment: poor. Insight: poor. Orientation: x 3. Recent and remote memory: intact. Attention span and concentration: fair. Language: adequate. Fund of knowledge: average. Mood: sad, depressed, anxious Affect: congruent with mood. DIAGNOSES: 1. Unspecified impulse/conduct disorder. 2. Antisocial personality disorder/borderline personality disorder. 3. Unspecified mood disorder ASSESSMENT: the patient wants to be discharged, she says, but is not able to tell me how is she going to stay away from trying to hurt herself. She doesn't want to be on a 1:1 but just a couple of nights ago, she had to be restrained ( over the weekend0 because she kept wrapping her shirt around her neck. Is not possible to keep her without a sitter because she keeps making impulsive decisions and put herself at risk MANAGEMENT PLAN: Will continue with current treatment plan TIME SPENT: 20 minutes. Vital Signs Vital Signs Date Time Temp Pulse Resp B/P (MAP) Pulse Ox O2 Delivery O2 Flow Rate FiO2 08/11/20 22:00 08/10/20 22:30 97.8 96 16 126/56 100 Current Medications Current Medications Medications (Trade) Dose Ordered Sig/Brielle Route PRN Reason Start Time Stop Time Status Last Admin Dose Admin Acetaminophen (Tylenol Tab) 650 mg Q6HP PRN PO HEADACHE or DISCOMFORT 06/17/20 23:00 08/07/20 20:32 Al Hydrox/Mg Hydrox/Simethicone (Mylanta) 30 ml Q4HP PRN PO HEARTBURN/INDIGESTION 06/17/20 23:00 08/04/20 11:08 Aripiprazole (AbiLIFY) 2 mg QHS PO 06/18/20 21:00 06/19/20 15:03 DC 06/18/20 22:52 Cariprazine (Vraylar) 1.5 mg DAILY PO 06/25/20 09:00 06/26/20 14:08 DC 06/26/20 10:14 Cariprazine (Vraylar) 3 mg DAILY PO 06/27/20 09:00 08/14/20 09:30 Cetirizine HCl (ZyrTEC) 10 mg DAILY PO 06/29/20 09:00 08/14/20 09:30 Chlorpromazine HCl (Thorazine) 50 mg BID PO 08/13/20 09:00 08/14/20 09:30 Chlorpromazine HCl (Thorazine) 50 mg Q6HP PRN PO AGITATION/Anxiety 06/29/20 16:00 07/31/20 20:23 Chlorpromazine HCl (Thorazine) 50 mg STAT STAT IM 08/07/20 15:18 08/07/20 15:21 DC 08/07/20 15:28 Chlorpromazine HCl (Thorazine) 100 mg BID PO 07/31/20 21:00 08/04/20 12:12 DC 08/04/20 10:13 Chlorpromazine HCl (Thorazine) 100 mg STAT STAT PO 07/30/20 20:37 07/30/20 20:39 DC 07/30/20 20:43 Chlorpromazine HCl (Thorazine) 200 mg BID PO 08/04/20 21:00 08/08/20 11:01 DC 08/07/20 20:32 Chlorpromazine HCl (Thorazine) 200 mg BID PO 08/13/20 09:00 08/14/20 09:30 Chlorpromazine HCl (Thorazine) 200 mg BID PO 08/13/20 12:11 Cancel Chlorpromazine HCl (Thorazine) 250 mg BID PO 08/08/20 21:00 08/13/20 12:10 DC 08/11/20 21:13 Chlorpromazine HCl (Thorazine) 250 mg BID PO 08/13/20 09:00 Cancel Chlorpromazine HCl (Thorazine) 300 mg BID PO 08/08/20 21:00 08/08/20 11:04 DC Diphenhydramine HCl (Benadryl) 50 mg STAT STAT IM 08/07/20 15:20 08/07/20 15:22 DC 08/07/20 15:28 Diphenhydramine HCl (Benadryl) 50 mg STAT STAT IM 08/10/20 21:01 08/10/20 21:05 DC 08/10/20 21:20 Diphenhydramine HCl (Benadryl) 50 mg STAT STAT IM 08/11/20 21:21 08/11/20 21:25 DC 08/11/20 21:37 Diphenhydramine HCl (Benadryl) 50 mg STAT STAT IM 08/11/20 21:58 08/11/20 22:00 DC 08/11/20 22:04 Diphenhydramine HCl (Benadryl) 50 mg STAT STAT IM 07/20/20 20:45 07/20/20 20:48 DC 07/20/20 20:53 Diphenhydramine HCl (Benadryl) 50 mg STAT STAT IM 07/20/20 22:56 07/20/20 22:59 DC 07/20/20 23:10 Fluoxetine HCl (PROzac) 40 mg QAM PO 06/18/20 09:00 06/24/20 09:50 DC 06/24/20 09:43 Haloperidol (Haldol) 10 mg STAT STAT IM 08/10/20 21:01 08/10/20 21:05 DC 08/10/20 21:20 Haloperidol (Haldol) 10 mg STAT STAT IM 08/11/20 21:21 08/11/20 21:25 DC 08/11/20 21:37 Haloperidol (Haldol) 10 mg STAT STAT IM 08/11/20 21:58 08/11/20 22:00 DC 08/11/20 22:03 Haloperidol (Haldol) 10 mg STAT STAT IM 07/20/20 20:45 07/20/20 20:48 DC 07/20/20 20:53 Haloperidol (Haldol) 10 mg STAT STAT IM 07/20/20 22:56 07/20/20 22:59 DC 07/20/20 23:10 Home Med (Med Rec Complete!) ASDIRECTED XX 06/17/20 21:30 06/17/20 21:18 DC Loperamide HCl (Imodium) 2 mg ASDIRECTED PRN PO DIARRHEA 08/08/20 17:45 Lorazepam (Ativan) 1 mg BIDP PRN PO ANXIETY 08/10/20 12:00 08/11/20 21:14 Lorazepam (Ativan) 2 mg STAT STAT IM 07/31/20 14:16 07/31/20 14:20 DC 07/31/20 14:27 Lorazepam (Ativan) 2 mg STAT STAT IM 08/04/20 21:28 08/04/20 21:32 DC 08/04/20 21:59 Lorazepam (Ativan) 2 mg STAT STAT IM 08/07/20 15:21 08/07/20 15:23 DC 08/07/20 15:28 Lorazepam (Ativan) 2 mg STAT STAT IM 08/10/20 21:01 08/10/20 21:05 DC 08/10/20 21:21 Lorazepam (Ativan) 2 mg STAT STAT IM 08/11/20 21:21 08/11/20 21:25 DC 08/11/20 21:37 Lorazepam (Ativan) 2 mg STAT STAT IM 08/11/20 21:58 08/11/20 22:00 DC 08/11/20 22:04 Lorazepam (Ativan) 2 mg STAT STAT IM 07/20/20 20:45 07/20/20 20:48 DC 07/20/20 20:53 Lorazepam (Ativan) 2 mg STAT STAT IM 07/20/20 22:56 07/20/20 22:59 DC 07/20/20 23:11 Magnesium Hydroxide (Milk Of Magnesia) 30 ml DAILYPRN PRN PO CONSTIPATION 06/17/20 23:00 06/21/20 23:03 Miscellaneous (Unresolved Clarification Entry) SEE LABEL COMMENTS DAILY XX 07/28/20 09:00 07/28/20 15:45 DC Naproxen (Naprosyn) 250 mg Q12HP PRN PO PAIN OR DISCOMFORT 07/10/20 14:00 07/10/20 14:12 Olanzapine (ZyPREXA ZYDIS) 5 mg Q4HP PRN PO AGITATION 06/17/20 23:00 06/27/20 16:36 DC 06/26/20 20:06 Olanzapine (ZyPREXA ZYDIS) 5 mg Q6HP PRN PO ANXIETY/AGITATION 07/11/20 12:00 08/12/20 20:11 Olanzapine (ZyPREXA ZYDIS) 10 mg Q4HP PRN PO AGITATION 06/27/20 16:45 06/29/20 15:55 DC 06/28/20 21:49 Olanzapine (Zyprexa Intramuscular) 10 mg STAT STAT IM 08/04/20 21:28 08/04/20 21:31 DC 08/04/20 21:59 Topiramate (TopAMAX) 100 mg BID PO 06/18/20 21:00 08/02/20 10:34 DC 08/01/20 20:25 Topiramate (TopAMAX) 200 mg BID PO 08/02/20 09:00 08/14/20 09:30 Trazodone HCl (Desyrel) 50 mg QHSP PRN PO INSOMNIA 06/17/20 23:00 07/31/20 20:23 Allergies Coded Allergies: haloperidol (Verified Adverse Reaction, Intermediate, LOCKJAW, 01/03/20) Has required & received this med many time without EPS noted risperidone (Verified Adverse Reaction, Mild, PSORIASIS, 11/26/19) DAVONTE OLIVEROS MD Aug 14, 2020 21:18
[2020-08-14] MEDS ORDERED: LORazepam 2 MG/ML VIAL IM STA (21:19)
[2020-08-14] MEDS ORDERED: diphenhydrAMINE 50MG/ML VIAL (J1200) IM STA (21:19)
[2020-08-14] MEDS ORDERED: HALOPERIDOL 5MG/ML VIAL (J1630 PER 1) IM STA (21:19)
[2020-08-14 21:45] VITALS: BP 138/77
[2020-08-14 22:00] VITALS: BP 139/78
[2020-08-14 22:15] VITALS: BP 148/91
[2020-08-14 22:45] VITALS: BP 144/82
--- NOTE | 2020-08-15 08:19 | MHIPN ---
[facility] PROGRESS NOTE DATE: 08/12/2020 VITAL SIGNS: Blood pressure is 126/56, pulse is 96, temperature is 97.8. This is a meeting from a couple of days ago. I am assigned to her care for today, as the inpatient clinician is away. This is a video assessment, she is in seen in the presence of staff. CHIEF COMPLAINT: She says she feels okay. SUBJECTIVE: She is seen for follow-up. She indicates she feels okay, suggests has been sleeping all day today, says has just woken up, had dinner. She indicated she had been agitated the last couple of days, but she did not want to discuss it. MENTAL STATUS EXAM: Neat, superficially cooperative, somewhat guarded, no agitation. No psychomotor retardation, mild irritability. Affect is restrictive but reactive. No overt thoughts of harming herself or anyone else. Judgment and insight remain compromised. ASSESSMENT: Bipolar disorder by history. Borderline personality disorder with antisocial personality traits. An impulse control disorder is also suspected, although it may be amalgamated in the other features. PLAN: Continue current care, observations. Maintain current precautions. Further recommendations to be made depending on the clinical picture.
[2020-08-15] MEDS: TOPIRAMATE (TopAMAX) 100 MG TAB PO SCH ×2 (09:00→21:00)
[2020-08-15] MEDS: chlorproMAZINE 25 MG TABLET PO SCH ×2 (09:00→20:57)
[2020-08-15] MEDS: CETIRIZINE (ZyrTEC) 10 MG TAB PO SCH (09:00)
[2020-08-15] MEDS: CARIPRAZINE 3MG CAPSULE (VRAYLAR) PO SCH (09:00)
[2020-08-15] MEDS: ChlorproMAZINE 100 MG TABLET PO SCH ×2 (09:00→20:57)
[2020-08-15] MEDS: ACETAMINOPHEN TAB 650MG DOSE (2X325MG) PO PRN (19:33)
[2020-08-15] MEDS: MAALOX 30 ML SUSP *UDC PO PRN (22:28)
[2020-08-16] MEDS: TOPIRAMATE (TopAMAX) 100 MG TAB PO SCH ×2 (11:26→20:40)
[2020-08-16] MEDS: ChlorproMAZINE 100 MG TABLET PO SCH ×2 (11:26→20:39)
[2020-08-16] MEDS: CARIPRAZINE 3MG CAPSULE (VRAYLAR) PO SCH (11:26)
[2020-08-16] MEDS: chlorproMAZINE 25 MG TABLET PO SCH ×2 (11:26→20:39)
[2020-08-16] MEDS: CETIRIZINE (ZyrTEC) 10 MG TAB PO SCH (11:27)
[2020-08-16] MEDS: ACETAMINOPHEN TAB 650MG DOSE (2X325MG) PO PRN (19:32)
[2020-08-17] MEDS: ChlorproMAZINE 100 MG TABLET PO SCH ×2 (08:03→19:43)
[2020-08-17] MEDS: CETIRIZINE (ZyrTEC) 10 MG TAB PO SCH (08:03)
[2020-08-17] MEDS: chlorproMAZINE 25 MG TABLET PO SCH ×2 (08:03→19:42)
[2020-08-17] MEDS: CARIPRAZINE 3MG CAPSULE (VRAYLAR) PO SCH (08:04)
[2020-08-17] MEDS: TOPIRAMATE (TopAMAX) 100 MG TAB PO SCH ×2 (08:04→19:43)
[2020-08-17] MEDS: MAALOX 30 ML SUSP *UDC PO PRN (10:03)
[2020-08-17 16:38] VITALS: BP 132/74
[2020-08-17] MEDS: traZODone 50 MG TAB PO PRN (21:10)
[2020-08-18] MEDS: ChlorproMAZINE 100 MG TABLET PO SCH ×2 (09:31→20:40)
[2020-08-18] MEDS: chlorproMAZINE 25 MG TABLET PO SCH ×2 (09:31→20:40)
[2020-08-18] MEDS: CARIPRAZINE 3MG CAPSULE (VRAYLAR) PO SCH (09:32)
[2020-08-18] MEDS: TOPIRAMATE (TopAMAX) 100 MG TAB PO SCH ×2 (09:32→20:40)
[2020-08-18] MEDS: CETIRIZINE (ZyrTEC) 10 MG TAB PO SCH (09:32)
--- NOTE | 2020-08-18 09:32 | MHIPN ---
[facility] PROGRESS NOTE DATE: 08/17/2020 The patient today tells me that she is feeling pretty good. She has apparently not been voiding any self-harm thoughts and she has been keeping her room clean and behaving appropriately for the last 48 hours. MENTAL STATUS EXAMINATION: She is alert and oriented times three. Eye contact is fairly good. She is verbally spontaneous. There is no formal thought disorder noted. She says her mood is okay. Affect is appropriate though constricted. There is no suicidal or homicidal thoughts, she says she is having no self-harm thoughts. There do not appear to be any psychotic thoughts. Insight and judgment is fair. Concentration is good. Memory is intact. DIAGNOSES: Bipolar disorder by history. Borderline personality disorder with antisocial personality traits. Rule out impulse control disorder. TREATMENT PLAN: At this point, I have been advised by Dr. Sung, who had been seeing her for the past few days, that he had advised the patient that if she did well for 48 hours that he would recommend that she be taken off the one-to-one observation level. However, I am continuing to be concerned because the patient does not seem to be able to last off of a one-to-one observation level, she is always doing something and getting put back on a one-to-one right away, so I did advise the patient today that we will see how she behaves in another 24 hours and if she continues to remain in control that I will definitely take her off of the one-to-one tomorrow and she seemed to be accepting of that.
[2020-08-18] MEDS ORDERED: LORazepam 2 MG TAB PO STA (20:56)
[2020-08-18] MEDS ORDERED: diphenhydrAMINE 50MG CAP PO STA (20:56)
[2020-08-18] MEDS: MAALOX 30 ML SUSP *UDC PO PRN (21:45)
[2020-08-19] MEDS: CETIRIZINE (ZyrTEC) 10 MG TAB PO SCH (09:00)
[2020-08-19] MEDS: CARIPRAZINE 3MG CAPSULE (VRAYLAR) PO SCH (11:05)
[2020-08-19] MEDS: TOPIRAMATE (TopAMAX) 100 MG TAB PO SCH ×2 (11:05→21:09)
[2020-08-19] MEDS: chlorproMAZINE 25 MG TABLET PO SCH ×2 (11:05→21:09)
[2020-08-19] MEDS: ChlorproMAZINE 100 MG TABLET PO SCH ×2 (11:05→21:09)
--- NOTE | 2020-08-19 11:15 | CR ---
CONSULTATION DATE: 08/17/2020 CONSULTATION REQUESTED BY: Emily Kearns MD CHIEF COMPLAINT: Chest pain. HISTORY OF PRESENT ILLNESS: I was called by the nurse cancer registry manager for Yareli Hatch on mental health unit. She was having chest pain. I was called for evaluation. I ordered a stat EKG, the patient declined this. PHYSICAL EXAMINATION: Blood pressure 153/74, pulse 90, respiratory rate 14. She is resting comfortably, in no distress whatsoever. Lungs are clear. Heart regular rhythm. Chest wall is discretely tender to palpate along the left sternal border. Elevation of her arm above her head or palpation of the left sternal border reproduces her pain. IMPRESSION: Chest wall pain. PLAN: I would recommend a heating pad, but they are not available on the mental health unit. Reassurance and gentle stretching advised. Non-cardiac nature of pain discussed with patient to her reassurance.
--- NOTE | 2020-08-19 13:15 | MHIPN ---
[facility]IENT PROGRESS NOTE DATE: 08/18/20 HISTORY OF PRESENT ILLNESS: The patient today states that she has continued to do good. She has no complaints. She said her mood is better. She is denying any thoughts of harming herself or anybody else. MENTAL STATUS EXAM: Patient is alert and oriented times 3. Eye contact is fairly good. She is verbally spontaneous. There is no formal thought disorder noted. She says her mood is "better." Affect constricted, but appropriate to mood. She is not psychotic. She is denying suicidal or homicidal thoughts. She is denying any thoughts of wanting to harm herself. Concentration is fair. Memory is intact. Insight and judgment is poor. DIAGNOSES: 1. Bipolar disorder by history. 2. Borderline personality disorder with antisocial traits. 3. Rule out impulse control disorder. TREATMENT PLAN: This patient has now been free of any self harm thoughts for 3 days and so we will discontinue the 1:1 observation level and we will continue to monitor her for continued elevation and stabilization of her mood and resolution of any self harm or suicidal or homicidal thoughts. ROSSY
[2020-08-19] MEDS: traZODone 50 MG TAB PO PRN (21:41)
[2020-08-19] MEDS: LORazepam 1 MG TAB PO PRN (21:41)
[2020-08-20] MEDS: CETIRIZINE (ZyrTEC) 10 MG TAB PO SCH (09:21)
[2020-08-20] MEDS: CARIPRAZINE 3MG CAPSULE (VRAYLAR) PO SCH (09:21)
[2020-08-20] MEDS: ChlorproMAZINE 100 MG TABLET PO SCH (09:22)
[2020-08-20] MEDS: chlorproMAZINE 25 MG TABLET PO SCH (09:22)
[2020-08-20] MEDS: TOPIRAMATE (TopAMAX) 100 MG TAB PO SCH (09:22)
[2020-08-20] MEDS ORDERED: NAPR250T4 PO (12:34)
[2020-08-20] MEDS ORDERED: CHLO100T30 PO (12:34)
[2020-08-20] MEDS ORDERED: TOPA100T12 PO (12:34)
[2020-08-20] MEDS ORDERED: CHLOR25TA PO (12:34)
[2020-08-20] MEDS ORDERED: CETI10TA PO (12:34)
[2020-08-20] MEDS ORDERED: VRAY3CAP PO (12:34)
[2020-08-20] MEDS ORDERED: ATIV1TAB7 PO ×2 (12:34→13:28)
[2020-08-20] MEDS ORDERED: TRAZ-252 PO (12:34)
--- NOTE | 2020-08-20 20:58 | MHIPNPDOC ---
[facility] Progress Note Progress Note DATE OF SERVICE: 08/19/20 HISTORY: As per ED report: "Pt well known from prior psych admissions and incessant ED visits, reports [facility] and ingested Valium pills "in the bathroom" with intention of killing self. PT states "I was at my breaking point", adds that she was just discharged from [facility] earlier today and returned to [facility]. Pt states she had been staying in a Transitional living residence in [facility] "but I signed myself out", pt vague about why, states "I don't like rules and they were disrespecting me there". Pt states she is now homeless, appears disheveled/unkempt, states she is still feeling suicidal, denies HI/AH/VH, has outpt tx at [facility] but unknown if she has been compliant." VITAL SIGNS: See below. NEW TEST RESULTS: See below CURRENT MEDICATIONS: See below. MENTAL STATUS EXAMINATION: Patient is a 19-year old female, who is alert, disheveled, with poor hygiene, dressed in hospital clothes. Speech: Is normal in r/t/v, spontaneous and fluent. Language skills are intact. Thought processes including: linear and coherent Thought content: negative for suicidal or homicidal ideation. She denies thought delusions, she says she wants to be able to leave the Hospital but at the same time she says she feels anxious about that. Denies TAV hallucinations Description of associations: intact Description of abnormal or psychotic thoughts: She denies feeling depressed, denies SI/HI , reports anxious thoughts about leaving the Hospital Judgment: limited Insight: limited Orientation: x 3. Recent and remote memory: intact. Attention span and concentration: fair. Language: adequate. Fund of knowledge: average. Mood: anxious Affect: congruent with mood. DIAGNOSES: 1. Unspecified impulse/conduct disorder. 2. Antisocial personality disorder/borderline personality disorder. 3. Unspecified mood disorder ASSESSMENT: she's excited about the possibility of being discharged to [facility], if she continues to be in behavioral control. She has not had any incidents for 4 days and at this time she is future orientated, she wants to leave, she doesn't mind if she goes to a Hotel because she knows her needs, will be covered (food, room, medications and she will have a [employer] Eng[employer]ver). She says she is excited but at the same time she fears what she might find in the real world. I hope Yareli is able to keep in behavioral control because she has sabotaged discharges and referrals in the past. MANAGEMENT PLAN: She will be discharged tomorrow if she continues to be in behavioral control, not suicidal, not homicidal and not psychotic TIME SPENT: 20 minutes. Vital Signs Vital Signs Date Time Temp Pulse Resp B/P (MAP) Pulse Ox O2 Delivery O2 Flow Rate FiO2 08/17/20 16:38 97.7 98 14 132/74 (93) 98 Room Air Current Medications Current Medications Medications (Trade) Dose Ordered Sig/Brielle Route PRN Reason Start Time Stop Time Status Last Admin Dose Admin Acetaminophen (Tylenol Tab) 650 mg Q6HP PRN PO HEADACHE or DISCOMFORT 06/17/20 23:00 08/16/20 19:32 Al Hydrox/Mg Hydrox/Simethicone (Mylanta) 30 ml Q4HP PRN PO HEARTBURN/INDIGESTION 06/17/20 23:00 08/18/20 21:45 Aripiprazole (AbiLIFY) 2 mg QHS PO 06/18/20 21:00 06/19/20 15:03 DC 06/18/20 22:52 Cariprazine (Vraylar) 1.5 mg DAILY PO 06/25/20 09:00 06/26/20 14:08 DC 06/26/20 10:14 Cariprazine (Vraylar) 3 mg DAILY PO 06/27/20 09:00 08/19/20 11:05 Cetirizine HCl (ZyrTEC) 10 mg DAILY PO 06/29/20 09:00 08/18/20 09:32 Chlorpromazine HCl (Thorazine) 50 mg BID PO 08/13/20 09:00 08/19/20 11:05 Chlorpromazine HCl (Thorazine) 50 mg Q6HP PRN PO AGITATION/Anxiety 06/29/20 16:00 07/31/20 20:23 Chlorpromazine HCl (Thorazine) 50 mg STAT STAT IM 08/07/20 15:18 08/07/20 15:21 DC 08/07/20 15:28 Chlorpromazine HCl (Thorazine) 100 mg BID PO 07/31/20 21:00 08/04/20 12:12 DC 08/04/20 10:13 Chlorpromazine HCl (Thorazine) 100 mg STAT STAT PO 07/30/20 20:37 07/30/20 20:39 DC 07/30/20 20:43 Chlorpromazine HCl (Thorazine) 200 mg BID PO 08/04/20 21:00 08/08/20 11:01 DC 08/07/20 20:32 Chlorpromazine HCl (Thorazine) 200 mg BID PO 08/13/20 09:00 08/19/20 11:05 Chlorpromazine HCl (Thorazine) 200 mg BID PO 08/13/20 12:11 Cancel Chlorpromazine HCl (Thorazine) 250 mg BID PO 08/08/20 21:00 08/13/20 12:10 DC 08/11/20 21:13 Chlorpromazine HCl (Thorazine) 250 mg BID PO 08/13/20 09:00 Cancel Chlorpromazine HCl (Thorazine) 300 mg BID PO 08/08/20 21:00 08/08/20 11:04 DC Diphenhydramine HCl (Benadryl) 50 mg STAT STAT IM 08/07/20 15:20 08/07/20 15:22 DC 08/07/20 15:28 Diphenhydramine HCl (Benadryl) 50 mg STAT STAT IM 08/10/20 21:01 08/10/20 21:05 DC 08/10/20 21:20 Diphenhydramine HCl (Benadryl) 50 mg STAT STAT IM 08/11/20 21:21 08/11/20 21:25 DC 08/11/20 21:37 Diphenhydramine HCl (Benadryl) 50 mg STAT STAT IM 08/11/20 21:58 08/11/20 22:00 DC 08/11/20 22:04 Diphenhydramine HCl (Benadryl) 50 mg STAT STAT IM 07/20/20 20:45 07/20/20 20:48 DC 07/20/20 20:53 Diphenhydramine HCl (Benadryl) 50 mg STAT STAT IM 07/20/20 22:56 07/20/20 22:59 DC 07/20/20 23:10 Diphenhydramine HCl (Benadryl) 50 mg STAT STAT IM 08/14/20 21:19 08/14/20 21:22 DC 08/14/20 21:37 Diphenhydramine HCl (Benadryl) 50 mg STAT STAT PO 08/18/20 20:56 08/18/20 20:59 DC 08/18/20 21:02 Fluoxetine HCl (PROzac) 40 mg QAM PO 06/18/20 09:00 06/24/20 09:50 DC 06/24/20 09:43 Haloperidol (Haldol) 10 mg STAT STAT IM 08/10/20 21:01 08/10/20 21:05 DC 08/10/20 21:20 Haloperidol (Haldol) 10 mg STAT STAT IM 08/11/20 21:21 08/11/20 21:25 DC 08/11/20 21:37 Haloperidol (Haldol) 10 mg STAT STAT IM 08/11/20 21:58 08/11/20 22:00 DC 08/11/20 22:03 Haloperidol (Haldol) 10 mg STAT STAT IM 07/20/20 20:45 07/20/20 20:48 DC 07/20/20 20:53 Haloperidol (Haldol) 10 mg STAT STAT IM 07/20/20 22:56 07/20/20 22:59 DC 07/20/20 23:10 Haloperidol (Haldol) 10 mg STAT STAT IM 08/14/20 21:19 08/14/20 21:22 DC 08/14/20 21:36 Haloperidol (Haldol) 10 mg STAT STAT PO 08/18/20 20:56 08/18/20 20:59 DC 08/18/20 21:03 Home Med (Med Rec Complete!) ASDIRECTED XX 06/17/20 21:30 06/17/20 21:18 DC Loperamide HCl (Imodium) 2 mg ASDIRECTED PRN PO DIARRHEA 08/08/20 17:45 Lorazepam (Ativan) 1 mg BIDP PRN PO ANXIETY 08/10/20 12:00 08/11/20 21:14 Lorazepam (Ativan) 2 mg STAT STAT IM 07/31/20 14:16 07/31/20 14:20 DC 07/31/20 14:27 Lorazepam (Ativan) 2 mg STAT STAT IM 08/04/20 21:28 08/04/20 21:32 DC 08/04/20 21:59 Lorazepam (Ativan) 2 mg STAT STAT IM 08/07/20 15:21 08/07/20 15:23 DC 08/07/20 15:28 Lorazepam (Ativan) 2 mg STAT STAT IM 08/10/20 21:01 08/10/20 21:05 DC 08/10/20 21:21 Lorazepam (Ativan) 2 mg STAT STAT IM 08/11/20 21:21 08/11/20 21:25 DC 08/11/20 21:37 Lorazepam (Ativan) 2 mg STAT STAT IM 08/11/20 21:58 08/11/20 22:00 DC 08/11/20 22:04 Lorazepam (Ativan) 2 mg STAT STAT IM 07/20/20 20:45 07/20/20 20:48 DC 07/20/20 20:53 Lorazepam (Ativan) 2 mg STAT STAT IM 07/20/20 22:56 07/20/20 22:59 DC 07/20/20 23:11 Lorazepam (Ativan) 2 mg STAT STAT IM 08/14/20 21:19 08/14/20 21:22 DC 08/14/20 21:37 Lorazepam (Ativan) 2 mg STAT STAT PO 08/18/20 20:56 08/18/20 20:59 DC 08/18/20 21:02 Magnesium Hydroxide (Milk Of Magnesia) 30 ml DAILYPRN PRN PO CONSTIPATION 06/17/20 23:00 06/21/20 23:03 Miscellaneous (Unresolved Clarification Entry) SEE LABEL COMMENTS DAILY XX 07/28/20 09:00 07/28/20 15:45 DC Naproxen (Naprosyn) 250 mg Q12HP PRN PO PAIN OR DISCOMFORT 07/10/20 14:00 07/10/20 14:12 Olanzapine (ZyPREXA ZYDIS) 5 mg Q4HP PRN PO AGITATION 06/17/20 23:00 06/27/20 16:36 DC 06/26/20 20:06 Olanzapine (ZyPREXA ZYDIS) 5 mg Q6HP PRN PO ANXIETY/AGITATION 07/11/20 12:00 08/12/20 20:11 Olanzapine (ZyPREXA ZYDIS) 10 mg Q4HP PRN PO AGITATION 06/27/20 16:45 06/29/20 15:55 DC 06/28/20 21:49 Olanzapine (Zyprexa Intramuscular) 10 mg STAT STAT IM 08/04/20 21:28 08/04/20 21:31 DC 08/04/20 21:59 Topiramate (TopAMAX) 100 mg BID PO 06/18/20 21:00 08/02/20 10:34 DC 08/01/20 20:25 Topiramate (TopAMAX) 200 mg BID PO 08/02/20 09:00 08/19/20 11:05 Trazodone HCl (Desyrel) 50 mg QHSP PRN PO INSOMNIA 06/17/20 23:00 08/17/20 21:10 Allergies Coded Allergies: haloperidol (Verified Adverse Reaction, Intermediate, LOCKJAW, 01/03/20) Has required & received this med many time without EPS noted risperidone (Verified Adverse Reaction, Mild, PSORIASIS, 11/26/19) DAVONTE OLIVEROS MD Aug 19, 2020 14:46
--- NOTE | 2020-08-20 21:58 | MHDSPDOC ---
[facility] Discharge Summary Discharge Summary DATE OF ADMISSION: Jun 17, 2020 at 22:48 DATE OF DISCHARGE: 08/20/2020 DISCHARGE DIAGNOSES: 1. Unspecified impulse/conduct disorder. 2. Antisocial personality disorder/borderline personality disorder. 3. Unspecified mood disorder REASON FOR ADMISSION: As per ED report: "Reason for Referral Pt with intentional ingestion today of a reported 62 Valium pills. Chief Complaint Pt well known from prior psych admissions and incessant ED visits, reports she was at [facility] today and ingested Valium pills "in the bathroom" with intention of killing self. PT states "I was at my breaking point", adds that she was just discharged from [facility] earlier today and returned to [facility]. Pt states she had been staying in a Transitional living residence in [facility] "but I signed myself out", pt vague about why, states "I don't like rules and they were disrespecting me there". Pt states she is now homeless, appears disheveled/unkempt, states she is still feeling suicidal, denies HI/AH/VH, has outpt tx at [facility] but unknown if she has been compliant" CONSULTANTS INVOLVED: None TREATMENT AND PROGRESS ON THE UNIT : The patient has had multiple admissions to our hospital, always with very similar presentation. Yareli has been coded several times, almost always for the same reason, because when things don't go her way, she gets extremely upset and what she immediately thinks is about hurting herself. For that purpose, the tries to wrap her shirt around her neck, mostly, trying to manipulate the staff. she knows about coping skills but she doesn't apply them because when she acts this ways is mostly out of poor impulse control and poor judgement. She has been compliant with medications mostly all the time but there are days when she deides she's not going to take some of her medications. Unfortunately, she thinks that medications are sort of magical and she expects them to solve all her problems and take away all her negative emotions and when it doesn't happen, she decides she's going to stop taking them. At this time, Yareli has the possibility to leave [facility], she will get a Religious Leader, she will go to [facility] and from there, their staff will pick her up to take her to a Hotel. [facility]. She has been in behavioral control for 4 days, she has consistently denied SI/HI, she has taken her medications and has requested them when she has felt on edge. HOSPITAL COURSE: As above DISCHARGE ASSESSMENT: She is not suicidal, not homicidal, she is not psychotic at this time. She is goal directed, she's optimistic about leaving. She says she will apply her coping skills, she will color ( the Religious Leader will give her coloring books and crayons) and will listen to music, which is relaxing for her. MENTAL STATUS EXAMINATION ON DISCHARGE: Patient is a 19-year old female, who is alert, disheveled, with poor hygiene, dressed in hospital clothes. Speech: Is normal in r/t/v, spontaneous and fluent. Language skills are intact. Thought processes including: linear and coherent Thought content: negative for suicidal or homicidal ideation. She denies thought delusions, she says she wants to be able to leave the Hospital but at the same time she says she feels anxious about that. Denies TAV hallucinations Description of associations: intact Description of abnormal or psychotic thoughts: She denies feeling depressed, denies SI/HI , reports anxious thoughts about leaving the Hospital Judgment: limited Insight: limited Orientation: x 3. Recent and remote memory: intact. Attention span and concentration: fair. Language: adequate. Fund of knowledge: average. Mood: anxious Affect: congruent with mood. DIAGNOSES: 1. Unspecified impulse/conduct disorder. 2. Antisocial personality disorder/borderline personality disorder. 3. Unspecified mood disorder MEDICATIONS ON DISCHARGE: the patient was discharged on Vraylar 3 mgs PO daily, Chlorpromazine 200 mgs PO BID, Chlorpromazine 50 mgs PO BID, Trazodone 50 mgs PO QHS, Ativan 1 mg PO BID PRN for anxiety, Chlorpromazine 25 mgs PO Q6H PRN for anxiety. PLAN/FOLLOWUP ARRANGEMENTS: Follow Up Care Education Label * Mental Health Appt 1 * [facility] * Established With This Provider Yes * Therapist NANCI * Date Aug 23, 2020 * Time 10:00 * Address of Clinic or Practice [address] [place] [address] * Follow Up Care Education Label * Mental Health Appt 2 * [facility] * Established With This Provider Yes * Therapist AILYN * Date Sep 11, 2020 * Time 14:30 * Address of Clinic or Practice [address] * Follow Up Care Education Label * Medical * Additional information PATIENT REFUSED MEDICAL FOLLOW UP. The amount of time spent in the coordination of care for this patient was approximately minutes. Vital Signs/I&Os Vital Signs Date Time Temp Pulse Resp B/P (MAP) Pulse Ox O2 Delivery O2 Flow Rate FiO2 08/17/20 16:38 97.7 98 14 132/74 (93) 98 Room Air Medications Scheduled PRN Lorazepam (Ativan) 1 Mg Tablet, 1 MG PO BIDP PRN for ANXIETY, #14 Allergies Coded Allergies: haloperidol (Verified Adverse Reaction, Intermediate, LOCKJAW, 01/03/20) Has required & received this med many time without EPS noted risperidone (Verified Adverse Reaction, Mild, PSORIASIS, 11/26/19) DAVONTE OLIVEROS MD Aug 20, 2020 12:36
[2020-08-21] MEDS ORDERED: PATIENT COMMENT (05:29)
[2020-08-21] MEDS ORDERED: TOPI100T9 PO (05:29)
[2020-08-21] MEDS ORDERED: LORA1TAB4 PO (05:29)
[2020-08-21] MEDS ORDERED: CHLO100T30 PO (05:29)
[2020-08-21] MEDS ORDERED: CETI-24 PO (05:29)
[2020-08-21] MEDS ORDERED: NAPR250T4 PO (05:29)
[2020-08-21] MEDS ORDERED: TRAZ1TAB10 PO (05:29)
[2020-08-21] MEDS ORDERED: CHLO25TA38 PO (05:29)
[2020-08-21] MEDS ORDERED: VRAY3CAP PO (05:29)
--- NOTE | 2020-08-21 09:28 | MHIPN ---
[facility] PROGRESS NOTE DATE: 08/15/2020 This is a video assessment, she is seen in the presence of staff. CHIEF COMPLAINT: Says feels okay. SUBJECTIVE: Seen for followup, I am assigned to her care today. Says today has been a relatively good day, has not felt overly anxious, slept for about an hour or two, rather than most of the day, appetite has been fair. Denies that she has had thoughts of harming herself. Says was disappointed she was not taken off of a one-on-one observation, says was under the impression that that was what would be done if she remained on a "distant" one-on-one. Has remained on it, and got upset about it yesterday, and says was "coded." MENTAL STATUS EXAMINATION: She is neat, a bit more engaged today, no agitation, no psychomotor retardation. Affect is broader than when I saw her a couple of days ago (I was not assigned to her care yesterday). At present, denies any suicidal thoughts or intents, denies any homicidal ideas or intents, and there is no evidence of any psychosis. Cognition grossly intact, judgment possibly improved, insight fair, but compromised. PLAN: I would suggest continuing with current one-on-one observations, but that if she can maintain behavioral control for about 48 hours, without any "coding," or need for extra direction, would suggest considering a trial of her being off one-on-one observation. Staff is aware of this. Patient is made aware as well. Further recommendations will be made depending on the clinical picture. VITAL SIGNS: Blood pressure 144/82, pulse 68, temperature 98.
--- NOTE | 2020-08-21 15:18 | MHIPN ---
[facility] PROGRESS NOTE DATE: 08/16/2020 VITAL SIGNS: Blood pressure 144/82, pulse 68, temperature 98. CHIEF COMPLAINT: Says feels okay. SUBJECTIVE: Seen for followup, she is seen in the presence of staff, this is a video assessment, we are doing this because of the virus pandemic. Says had a good evening yesterday, and that she generally slept well, no major agitation. Says has had a relatively good day today, felt a bit anxious during the day when she says she tried reaching her family but nobody answered. Says the anxiety tended to settle down. MENTAL STATUS EXAMINATION: She is neat, she is cooperative, affect broader, no agitation, no psychomotor retardation, she is coherent. At present, denies any suicidal thoughts or intents, no homicidal ideas or intents, no overt psychotic features elicited. Cognition grossly intact. Judgment and insight remain compromised, though possibly somewhat improved. ASSESSMENT: Bipolar disorder versus "unspecified mood disorder." Borderline personality disorder. Has been doing better the last over 24 hours or so, almost 48, and there has been better behavioral control, has been on "distant" one-on-one observation. I would suggest continuing current care, and if behavioral control is maintained, would suggest that one-on-one observation is discontinued tomorrow, after consultation with the psychiatrist oracle drm consultant, Dr. Martin. The patient and staff are aware of this. Further recommendations will be made depending on the clinical picture.
== END 2020-08-20 14:02 | disposition home or self-care (01) | DRG 758 ==
LOC: M ED 14:37 → M ED INP 22:48 → M PSY 23:45
PROVIDERS: ADMIT Psychiatry & Neurology Addiction Medicine; ATTEND Psychiatry & Neurology Psychiatry
DX: F63.9 Impulse disorder, unspecified (principal); E66.01 Morbid (severe) obesity due to excess calories; Z78.1 Physical restraint status; F60.2 Antisocial personality disorder; Z20.822 Contact with and (suspected) exposure to COVID-19; Z79.899 Other long term (current) drug therapy; R07.89 Other chest pain; T42.4X2A Poisoning by benzodiazepines, intentional self-harm, initial encounter; F64.9 Gender identity disorder, unspecified; F60.3 Borderline personality disorder; Z88.8 Allergy status to other drugs, medicaments and biological substances; Z62.811 Personal history of psychological abuse in childhood; Z62.810 Personal history of physical and sexual abuse in childhood

== ENCOUNTER 2020-08-20 21:18 | Inpatient (IN) | payer OTHER ==
[~2020-08-20] VITALS: Ht 167.6 cm; Wt 268.0 kg
[~2020-08-20 21:18] MED LIST changes: +ARIP1TAB4 PO; +ATIV1TAB7 PO; +CETI10TA PO; +CHLO100T30 PO; +CHLOR25TA PO; +DIAZ5TAB PO; +FLUO40CA PO; +MIRT-60 PO; +MIRT1TAB16 PO; +NAPR250T4 PO; +TOPA100T12 PO; +TOPI100T9 PO; +VRAY3CAP PO
--- OUTSIDE RECORDS SUMMARY | 2020-08-20 21:31 | CCD | Summary of Care ---
Author Author [facility] Address Unknown Phone Unavailable Care Team Providers Care Wireworker Name Role Phone Cornelia Cifuentes NP PCP Encounter Details Care Team Description Date Type Department 07/11/2020 [facility] TRANSFER CE NTER Encounter [address] [place] [address] Allergies Comments Active Allergy Reactions Severity Noted Date "lock jaw" Haloperidol Other (See Medium 01/25/2019 Comments) Lock Jaw Risperidone And Related Other (See Medium 2018 Comments) documented as of this encounter (statuses as of 07/26/2020) Medications End Date Status Medication Sig Dispensed Refills Start Date 12/26/2020 Active DULoxetine HCl 30 MG Oral Take 1 7 capsule 3 Capsule Delayed Release capsule by 0 Particles (CYMBALTA) mouth daily documented as of this encounter (statuses as of 07/26/2020) Active Problems Problem Noted Date Homeless single person 12/26/2019 Non compliance with medical treatment 12/26/2019 PTSD (post-traumatic stress disorder) 09/25/2019 Gender identity disorder 09/05/2019 Overview: Female to male Borderline personality disorder 09/04/2019 Overview: 12/26/2019-consented to Abilify by mouth and Abilify Maintena Depression with suicidal ideation 06/19/2019 Suicidal ideation 06/19/2019 documented as of this encounter (statuses as of 07/26/2020) Resolved Problems Problem Noted Date Resolved Date Suicide attempt by drug ingestion 09/02/201912/10 documented as of this encounter (statuses as of 07/26/2020) Social History Date Tobacco Use Types Packs/Day Years Used Never Assessed Sex Assigned at Date Recorded Not on file Date Recorded COVID-19 Exposure Response 07/11/2020 2:51 PM EST In the last month, have you been in contact with No / Unsure someone who was confirmed or suspected to have Coronavirus / COVID-19? documented as of this encounter Last Filed Vital Signs Not on filedocumented in this encounter Plan of Treatment Health Maintenance Due Date Last Done Comments HPV Vaccines (1 - 2-dose 10/07/2011 series) HIV Screening 2013 Chlamydia Screening 2016 Influenza Vaccine 04/11/2020 09/17/2017, 03/30/2007, 06/04/2006, Additional history exists DTaP,Tdap,and Td Vaccines 05/06/2029 05/06/2019, (5 - Td) 02/10/2012, 03/21/2004, Additional history exists Pneumococcal Vaccine: 65+ 2065 Years (1 of 1 - PPSV23) HIB Vaccines Completed 09/05/2003, 03/30/2001, 2000 Hepatitis B Vaccines Completed 09/05/2003, 03/30/2001, 2000 IPV Vaccines Completed 06/16/2005, 09/05/2003, 03/30/2001, Additional history exists MMR Vaccines Completed 06/16/2005, 09/13/2003 Varicella Vaccines Completed 06/16/2005, 09/13/2003 Hepatitis A Vaccines Aged Out No longer eligibl e based on patient's age to complete this topic Pneumococcal Vaccine: Aged Out No longer eligib le based on patient's age to Pediatrics (0 to 5 Years) complete this topic and At-Risk Patients (6 to 64 Years) documented as of this encounter Results Not on filedocumented in this encounter Additional Health Concerns Last Indicated Resolved Time Infection Onset Date 07/11/2020 07/18/2020 9:56 PM EST COVID-19 Rule-Out 07/11/2020 documented as of this encounter
--- OUTSIDE RECORDS SUMMARY | 2020-08-20 21:31 | CCD ---
Author Author Yareli Sotomayor Organization Unknown Address [address] [address] Phone Care Team Providers Care Machinist General Name Role Phone Fariba Sotomayor PCP Allergies, Adverse Reactions, Alerts Concept Allergy Name Reaction Severity Onset Date Status Documentation Date Phone Number Npid Taxonomy Code Taxonomy Desc Author Last Name Author Fi rst Name Concept Type 169354 Risperdal unspecified Active 03/03/2019 RXNORM Problem List No Data in Section Medications Rx Norm Medication Route Route Concept Start Date Stop Date Dosage Aldair quency Duration Formula Strength Dosage Form Dosage Form Code Dosage Description Medication Id Account Npid Author First Name Author Last Name Taxonomy Code Taxonomy Desc Phone Number [id number] Celexa by mouth [id number] 10/02/2019 once a day 40 mg tablet [id number] Tammie Kent [id number] Psychiatric/Mental Health [id number] Social History Social History Element Description Concept Effective Date Smoking Status Unknown if ever smoked [id number] Immunizations No Data in Section Vital Signs No Data in Section Procedures Date Concept Id Description Targeted Site Concept Targeted Site Concept Type 06/24/2020 34952 Extended Individual Psychotherapy - 45 min CPT Patient has no history of implantable de vices Encounters Encounter Start Date End Date Encounter Type Description Diagnosis Di agnosis Desc Location Author First Name Author Last Name Npid Taxonomy Cod e Taxonomy Desc Phone Number Location Addr1 Location Addr2 Location City Location Sta te Location Zip [id number] 06/24/2020 06/24/2020 25235 Extended Individual Psych otherapy - [address] [facility] Fariba [phone] [id number] Actuarial Director [phone] [address] [place], [place] [address] [facility] [address] Plan of Treatment No Data in Section Lab Results No Data in Section Instructions No Data in Section Insurance Providers Insurance Id Policy Effective Date Policy Thru Date Company N sue [id number] 2020 [place] - MEDICA ID MANAGED
[2020-08-20] MEDS ORDERED: NS 1,000 ML IV ONE (22:00)
[2020-08-20 22:15] LABS: HEMATOCRIT 39.5 % (36.0-47.0); HEMOGLOBIN 12.7 g/dl (12.0-15.5); MEAN CORPUSCULAR HEMOGLOBIN 29.3 pg (27.0-33.0); MEAN CORPUSCULAR HGB CONC 32.2 g/dl (32.0-36.5); MEAN CORPUSCULAR VOLUME 91.2 fl (80.0-96.0); PLATELET COUNT, AUTOMATED 210 10^3/uL (150-450); RED BLOOD COUNT 4.33 10^6/uL (4.00-5.40); WHITE BLOOD COUNT 7.4 10^3/uL (4.0-10.0)
[2020-08-20 22:30] LABS: HCG, SERUM QUALITATIVE NEGATIVE (NEGATIVE)
[2020-08-20] MEDS ORDERED: CHARCOAL ACTIVATED LIQUID 25 GM/120 ML BTL PO ONE (22:30)
[2020-08-20 22:41] LABS: ACETAMINOPHEN LEVEL < 2.0 UG/ML (10.0-30.0); ALBUMIN 3.8 GM/DL (3.2-5.2); ALT/SGPT 51 U/L (12-78); BILIRUBIN,DIRECT 0.1 MG/DL (0.0-0.2); BILIRUBIN,TOTAL 0.2 MG/DL (0.2-1.0); BLOOD UREA NITROGEN 14 MG/DL (7-18); CALCIUM LEVEL 8.8 MG/DL (8.5-10.1); CARBON DIOXIDE LEVEL 24 MEQ/L (21-32); CHLORIDE LEVEL 109 MEQ/L (98-107); CREATININE FOR GFR 0.93 MG/DL (0.55-1.30); ETHYL ALCOHOL (ETHANOL) < 0.003 % (0.000-0.010); GLUCOSE, FASTING 95 MG/DL (70-100); POTASSIUM SERUM 4.1 MEQ/L (3.5-5.1); SALICYLATE LEVEL < 1.7 MG/DL (5.0-30.0); SODIUM LEVEL 141 MEQ/L (136-145); TOTAL PROTEIN 7.2 GM/DL (6.4-8.2)
[2020-08-20 22:44] LABS: RSV AMPLIFICATION NEGATIVE (NEGATIVE)
[2020-08-20 22:48] LABS: AMPHETAMINES LEVEL URINE NEGATIVE (NEGATIVE); BARBITURATES URINE NEGATIVE (NEGATIVE); BENZODIAZEPINES URINE NEGATIVE (NEGATIVE); CANNABINOIDS URINE NEGATIVE (NEGATIVE); COCAINE METABOLITE URINE NEGATIVE (NEGATIVE); METHADONE URINE NEGATIVE (NEGATIVE); OPIATES URINE NEGATIVE (NEGATIVE); PHENCYCLIDINE URINE NEGATIVE (NEGATIVE)
[2020-08-21] MEDS ORDERED: TOPI100T9 PO (05:29)
[2020-08-21] MEDS ORDERED: CHLO25TA38 PO (05:29)
[2020-08-21] MEDS ORDERED: PATIENT COMMENT (05:29)
[2020-08-21] MEDS ORDERED: NAPR250T4 PO (05:29)
[2020-08-21] MEDS ORDERED: TRAZ1TAB10 PO (05:29)
[2020-08-21] MEDS ORDERED: VRAY3CAP PO (05:29)
[2020-08-21] MEDS ORDERED: CHLO100T30 PO (05:29)
[2020-08-21] MEDS ORDERED: CETI-24 PO (05:29)
[2020-08-21] MEDS ORDERED: LORA1TAB4 PO (05:29)
[2020-08-21] MEDS ORDERED: MAALOX 30 ML SUSP *UDC PO PRN (06:45)
[2020-08-21] MEDS ORDERED: ACETAMINOPHEN TAB 650MG DOSE (2X325MG) PO PRN (06:45)
[2020-08-21] MEDS ORDERED: LORazepam 1 MG TAB PO PRN (06:45)
[2020-08-21] MEDS ORDERED: NAPROXEN 250 MG TAB PO PRN (06:45)
[2020-08-21] MEDS ORDERED: OLANZapine ORAL DISINTEGRATING TAB 5MG PO PRN (06:45)
[2020-08-21] MEDS ORDERED: MOM 30ML SUSPENSION UDC PO PRN (06:45)
[2020-08-21] MEDS ORDERED: traZODone 50 MG TAB PO PRN (06:45)
--- NOTE | 2020-08-21 07:16 | ECGEPIP ---
[facility] - ED Test Date: 2020-08-20 Pat Name: SCOTTY OCAMPO Department: Room: - Gender: Female Nozzleman: : 2000 Requested By: THERESA Sánchez Order Number: [id number] Reading MD: Rell Herrera Measurements Intervals [place] Rate: 97 P: 48 IL: 148 QRS: -11 QRSD: 100 T: 65 QT: 333 QTc: 424 Interpretive Statements SINUS RHYTHM POSSIBLE INCOMPLETE RIGHT BUNDLE BRANCH BLOCK MODERATE VOLTAGE CRITERIA FOR LVH, CONSIDER NORMAL VARIANT SIMILAR TO 06/17/20 Electronically Signed on 08-21-2020 7:15:33 EST by Rell Herrera
[2020-08-21] MEDS: CETIRIZINE (ZyrTEC) 10 MG TAB PO SCH (09:00)
[2020-08-21] MEDS: TOPIRAMATE (TopAMAX) 100 MG TAB PO SCH ×2 (09:00→22:00)
[2020-08-21] MEDS: CARIPRAZINE 3MG CAPSULE (VRAYLAR) PO SCH (09:00)
[2020-08-21] MEDS: chlorproMAZINE 25 MG TABLET PO SCH ×4 (09:00→22:00)
[2020-08-21 10:26] VITALS: BP 136/96
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
[2020-08-22 06:16] VITALS: BP 128/57
[2020-08-22] MEDS: chlorproMAZINE 25 MG TABLET PO SCH (07:49)
[2020-08-22] MEDS: TOPIRAMATE (TopAMAX) 100 MG TAB PO SCH (07:49)
[2020-08-22] MEDS: CARIPRAZINE 3MG CAPSULE (VRAYLAR) PO SCH (07:50)
[2020-08-22] MEDS: CETIRIZINE (ZyrTEC) 10 MG TAB PO SCH (07:50)
[2020-08-22] MEDS ORDERED: ChlorproMAZINE 100 MG TABLET PO SCH (09:00)
[2020-08-22] MEDS ORDERED: TRAZ1TAB10 PO (12:13)
[2020-08-22] MEDS ORDERED: CHLO25TA38 PO (12:13)
[2020-08-22] MEDS ORDERED: NAPR250T4 PO (12:13)
[2020-08-22] MEDS ORDERED: VRAY3CAP PO (12:13)
[2020-08-22] MEDS ORDERED: LORA1TAB4 PO (12:13)
[2020-08-22] MEDS ORDERED: TOPI100T9 PO (12:13)
[2020-08-22] MEDS ORDERED: CHLO100T30 PO (12:13)
--- NOTE | 2020-08-22 20:49 | MHDSPDOC ---
[facility] Discharge Summary Discharge Summary DATE OF ADMISSION: Aug 21, 2020 at 06:38 DATE OF DISCHARGE: Aug 21, 2020 DISCHARGE DIAGNOSES: 1. Unspecified impulse/conduct disorder. 2. Antisocial personality disorder/borderline personality disorder. 3. Unspecified mood disorder REASON FOR ADMISSION: As per ED report: " CHIEF COMPLAINT: she reported an overdose but her urine toxicology was negative. HISTORY OF PRESENT ILLNESS: Reason for Referral Pt was brought to the ED by police on a 9.41 after pt called crisis hotline & reported that she took an OD of her meds. Chief Complaint Pt states that she was hospitalized at [facility] from 06/17/20 until 08/20/20. She was DC to an apartment in [place], which was set up by her clinical case manager. She states that she took an OD of Ativan, Topamax, & Thorazine but does not know how many she took. She states that she immediately started "panicking & flipping out" & called the crisis hotline, who in turn called police & EMS. Pt states that the OD was a suicide attempt. She states that she was scared to be alone, but did not mention this to [facility] providers before DC because "I just wanted to get the hell out of there." Pt denies SI at this time, however, appears to be minimizing in order to be DC. Pt denies HI. Pt reports a hx of multiple suicide attempts via hanging & OD. Her last suicide attempt was 06/17/20. She has a hx of self-harm via cutting. When asked about depression & anxiety she states "yes & no." She has had multiple admissions to [facility] & various other facilities. She has OP tx at [facility] but has not been there in several months due to multiple bvey-no-duix admissions. Pt states that she was DC on Ativan, Vraylar, Topamax, Thorazine, & one other med that she cannot remember the name of. Pt denies any drug or alcohol use & her tox screen was negative." CONSULTANTS INVOLVED: None TREATMENT AND PROGRESS ON THE UNIT : Jhonatan has been in behavioral control since she was readmitted to [facility]. she has been compliant with taking her medications and has said, repeatedly that she wants to leave the Unit. This is the first thing she told me yesterday when I re assessed her, "I guess I came back because I screwed up". she said at the ED that she had overdosed on Thorazine, Topamax and Ativan but her urine toxicology was negative for benzodiazepines and she stated she had taken all her Ativan. She has constance denying SI, consistently. she has not exhibited any dangerous behavior while at [facility], she has not tried to hurt herself or kill herself. she has not attempted to kill or hurt other people. She has not been responding to internal stimuli and has denied TAV hallucinations. She has been observed to be anxious but she is not overwhelmed by anxiety, she is able to cope with it. she has denied panic attacks. Yareli has been admitted multiple times to [facility], she has sabotaged the opportunities she has had before, for example, when she was living at [facility]. 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 HOSPITAL COURSE: As above DISCHARGE ASSESSMENT: Yareli was not in danger to self or others at the time of her discharge. She was not psychotic, she was goal orientated, she wanted to leave the Unit, she wanted to go to her apartment and she knew that she was not going to able to get there today because the gomez was still lost. She was aware she had to go to a Hotel but it was only for tonight. MENTAL STATUS EXAMINATION ON DISCHARGE: General appearance: Patient is a 19-year old female, who is alert, dressed in personal clothes, cooperative Speech: Normal tone, volume, rhythm and rate. Spontaneous and fluent Thought processes: Linear and coherent. Thought content: Denies SI, denies HI, denies paranoid, grandiose, bizarre delu sions at this time Description of associations: intact Description of abnormal or psychotic thoughts: Denies TAV hallucinations, she is not responding to internal stimuli, denies bizarre, paranoid, grandiose thoughts. Judgment: improvin Insight: limited Orientation: x 3. Recent and remote memory: Intact Attention span and concentration: good. Fund of knowledge: below average. Mood: "I feel good" Affect: A little bit anxious, constricted MEDICATIONS ON DISCHARGE: Scheduled Cariprazine HCl (Vraylar) 3 Mg Capsule, 3 MG PO DAILY for mood, #7 Cetirizine HCl (Cetirizine HCl) 10 Mg Tablet, 10 MG PO DAILY, (Reported) Chlorpromazine HCl (Chlorpromazine HCl) 25 Mg Tablet, 50 MG PO BID for mood/psychosis, #14 TAKES WITH 200MG FOR 250MG TOTAL BID Chlorpromazine HCl (Chlorpromazine HCl) 100 Mg Tablet, 200 MG PO BID for mood/psychosis, #28 TAKES WITH 50MG FOR 250MG TOTAL BID Topiramate (Topiramate) 100 Mg Tablet, 200 MG PO BID for mood/migraines, #28 Scheduled PRN Lorazepam (Lorazepam) 1 Mg Tablet, 1 MG PO BID PRN for ANXIETY, #14 Naproxen (Naproxen) 250 Mg Tablet, 250 MG PO Q12H PRN for PAIN OR DISCOMFORT, #14 Trazodone HCl (Trazodone HCl) 50 Mg Tablet, 50 MG PO QHS PRN for INSOMNIA, #7 Miscellaneous Medications [Patient Comment] , (Reported) MED REC COMPLETED VIA PREVIOUS DISCHARGE PAPERWORK (08/20/20) Allergies Coded Allergies: haloperidol (Verified Adverse Reaction, Intermediate, LOCKJAW, 01/03/20) Has required & received this med many time without EPS noted risperidone (Verified Adverse Reaction, Mild, PSORIASIS, 11/26/19) PLAN/FOLLOWUP ARRANGEMENTS: Follow Up Care Education Label * Mental Health Appt 1 * [facility] * Established With This Provider Yes * Therapist NANCI * Date Aug 23, 2020 * Time 10:00 * Address of Clinic or Practice [address] * Follow Up Care Education Label * Mental Health Appt 2 * [facility] * Established With This Provider Yes * Therapist AILYN * Date Sep 11, 2020 * Time 14:30 * Address of Clinic or [facility] [address] * Follow Up Care Education Label * Medical * Additional information PATIENT REFUSED MEDICAL FOLLOW UP. The amount of time spent in the coordination of care for this patient was approximately 30 minutes. Vital Signs/I&Os Vital Signs Date Time Temp Pulse Resp B/P (MAP) Pulse Ox O2 Delivery O2 Flow Rate FiO2 08/22/20 06:16 98.1 115 20 128/57 (80) 100 Room Air Medications Scheduled Cariprazine HCl (Vraylar) 3 Mg Capsule, 3 MG PO DAILY for mood, #7 Cetirizine HCl (Cetirizine HCl) 10 Mg Tablet, 10 MG PO DAILY, (Reported) Chlorpromazine HCl (Chlorpromazine HCl) 25 Mg Tablet, 50 MG PO BID for mood/psychosis, #14 TAKES WITH 200MG FOR 250MG TOTAL BID Chlorpromazine HCl (Chlorpromazine HCl) 100 Mg Tablet, 200 MG PO BID for mood/psychosis, #28 TAKES WITH 50MG FOR 250MG TOTAL BID Topiramate (Topiramate) 100 Mg Tablet, 200 MG PO BID for mood/migraines, #28 Scheduled PRN Lorazepam (Lorazepam) 1 Mg Tablet, 1 MG PO BID PRN for ANXIETY, #14 Naproxen (Naproxen) 250 Mg Tablet, 250 MG PO Q12H PRN for PAIN OR DISCOMFORT, # 14 Trazodone HCl (Trazodone HCl) 50 Mg Tablet, 50 MG PO QHS PRN for INSOMNIA, #7 Miscellaneous Medications [Patient Comment] , (Reported) MED REC COMPLETED VIA PREVIOUS DISCHARGE PAPERWORK (08/20/20) Allergies Coded Allergies: haloperidol (Verified Adverse Reaction, Intermediate, LOCKJAW, 01/03/20) Has required & received this med many time without EPS noted risperidone (Verified Adverse Reaction, Mild, PSORIASIS, 11/26/19) DAVONTE OLIVEROS MD Aug 22, 2020 12:05
--- NOTE | 2020-08-24 00:23 | HPEPDOC ---
General Date of Admission Aug 21, 2020 at 06:38 Date of Service: Aug 22, 2020 Chief Complaint The patient is a 19-year-old female admitted with a reason for visit of PTSD. History of Present Illness 19-year-old female with history of bipolar, depression, antisocial personality, ineffective coping, malingering, multiple psychiatric admissions, ingestion of various chemicals and medications, morbid obesity, suicidal attempts, PTSD admitted to inpatient mental health unit for self reported an overdose but her urine toxicology was negative on arrival. She was discharged the day prior after a 2 month long stay and housing was set up by her case resolution specialist.She repo rted that she was feeling lonely and afraid at her new apartment and Overdosed on her prescription meds. I am seeing the patient for medical history and physical. SOes not have any physical complaints today. Home Medications Scheduled Cariprazine HCl (Vraylar) 3 Mg Capsule, 3 MG PO DAILY for mood Cetirizine HCl (Cetirizine HCl) 10 Mg Tablet, 10 MG PO DAILY, (Reported) Chlorpromazine HCl (Chlorpromazine HCl) 25 Mg Tablet, 50 MG PO BID for mood/psychosis TAKES WITH 200MG FOR 250MG TOTAL BID Chlorpromazine HCl (Chlorpromazine HCl) 100 Mg Tablet, 200 MG PO BID for mood/psychosis TAKES WITH 50MG FOR 250MG TOTAL BID Topiramate (Topiramate) 100 Mg Tablet, 200 MG PO BID for mood/migraines Scheduled PRN Lorazepam (Lorazepam) 1 Mg Tablet, 1 MG PO BID PRN for ANXIETY Naproxen (Naproxen) 250 Mg Tablet, 250 MG PO Q12H PRN for PAIN OR DISCOMFORT Trazodone HCl (Trazodone HCl) 50 Mg Tablet, 50 MG PO QHS PRN for INSOMNIA Miscellaneous Medications [Patient Comment] , (Reported) MED REC COMPLETED VIA PREVIOUS DISCHARGE PAPERWORK (08/20/20) Allergies Coded Allergies: haloperidol (Verified Adverse Reaction, Intermediate, LOCKJAW, 01/03/20) Has required & received this med many time without EPS noted risperidone (Verified Adverse Reaction, Mild, PSORIASIS, 11/26/19) Past Medical History Medical History PTSD Suicide attempts with ingestion of various chemicals and medications, hanging Borderline personality disorder. Bipolar disorder. Depression. Morbid obesity. Antisocial personality disorder. Malingering. ADHD Surgical History No surgeries Family History father and mother alive and well Social History * Smoker: Denies Alcohol: Denies Drugs: denies A-FIB/CHADSVASC A-FIB History Current/History of A-Fib/PAF?: No Age/Risk Factor Scoring CHADSVASC: CHADSVASC Response (Comments) Value Age Risk Factor Age < 65 years old 0 Gender Risk Factor Female 1 Hx of CHF No 0 Hx of HTN No 0 Hx of Stroke/TIA/or VTE No 0 Hx of Diabetes No 0 Hx of Vascular Disease No 0 Total 1 Review of Systems Constitutional: Denies: Chills, Fever, Night Sweats Eyes: Denies: Pain, Vision change ENT: Denies: Head Aches, Ear Pain, Dysphagia Skin: Denies: Rash, Lesions, Breakdown Pulmonary: Denies: Dyspnea, Cough Cardiovascular: Denies: Chest Pain, Palpitations, Orthopnea, Paroxysmal Noc. Dyspnea, Lt Headedness Gastrointestinal: Denies: Nausea, Vomiting, Abdominal Pain, Diarrhea Genitourinary: Denies: Dysuria, Frequency, Incontinence, Retention Hematologic: Denies: Bruising, Bleeding Excessively Musculoskeletal: Denies: Neck Pain, Back Pain, Joint Pain, Muscle Pain, Spasms Neurological: Denies: Weakness, Numbness, Change in speech, Confusion Psych: Reports: Mood Normal; Denies: Depression, Memory Issues Physical Examination General Exam: Positive: Alert, No Acute Distress Eye Exam: Positive: PERRLA, Conjunctiva & lids normal, EOMI; Negative: Sclera icteric ENT Exam: Positive: Atraumatic, Mucous membr. moist/pink, Pharynx Normal Neck Exam: Positive: Supple; Negative: JVD, thyromegaly Chest Exam: Positive: Clear to auscultation, Normal air movement Heart Exam: Positive: Rate Normal, Regular Rhythm, Normal S1, Normal S2; Negative: Murmurs, Rubs Telemetry: Positive: No significant arrhythmia Abdomen Exam: Positive: Normal bowel sounds, Soft; Negative: Tenderness, Hepatospenomegaly Extremity Exam: Positive: Normal pulses; Negative: Clubbing, Cyanosis, Edema Skin Exam: Positive: Nl turgor and temperature; Negative: Breakdown, Lesion Neuro Exam: Positive: Normal Gait, Normal Speech, Cranial Nerves 3-12 NL, Reflexes 2+ Psych Exam: Positive: Mental status NL, Mood NL, Oriented x 3 Vital Signs Vital Signs Date Time Temp Pulse Resp B/P (MAP) Pulse Ox O2 Delivery O2 Flow Rate FiO2 08/22/20 06:16 98.1 115 20 128/57 (80) 100 Room Air Assessment/Plan 19 year old female admitted to [facility] for PTSD and self reported OD on her prescription meds. Psychiatric issues as per [facility] No active medical issues at this time. Plan / VTE VTE Prophylaxis Ordered?: No AYALA DE LA CRUZ MD Aug 22, 2020 14:08
== END 2020-08-22 13:22 | disposition home or self-care (01) | DRG 758 ==
LOC: M ED 21:18 → M ED INP 08-21 06:38 → M PSY 08-21 10:18
PROVIDERS: ADMIT Family Medicine; ATTEND Psychiatry & Neurology Psychiatry
DX: F63.9 Impulse disorder, unspecified (principal); E66.01 Morbid (severe) obesity due to excess calories; F39 Unspecified mood [affective] disorder; F60.3 Borderline personality disorder; F60.2 Antisocial personality disorder; Z20.822 Contact with and (suspected) exposure to COVID-19; Z79.899 Other long term (current) drug therapy; Z88.8 Allergy status to other drugs, medicaments and biological substances; Z62.810 Personal history of physical and sexual abuse in childhood; Z62.811 Personal history of psychological abuse in childhood; Z91.5 Personal history of self-harm

== ENCOUNTER 2020-08-23 20:42 | Emergency (ER) | payer OTHER ==
[~2020-08-23] VITALS: Ht 167.6 cm; Wt 104.5 kg
[~2020-08-23 20:42] MED LIST changes: +CHLO25TA38 PO; +LORA1TAB4 PO; +PATIENT COMMENT
[2020-08-23 20:54] VITALS: BP 165/76
[2020-08-23 21:22] LABS: HEMATOCRIT 41.1 % (36.0-47.0); HEMOGLOBIN 13.5 g/dl (12.0-15.5); MEAN CORPUSCULAR HEMOGLOBIN 29.3 pg (27.0-33.0); MEAN CORPUSCULAR HGB CONC 32.8 g/dl (32.0-36.5); MEAN CORPUSCULAR VOLUME 89.3 fl (80.0-96.0); PLATELET COUNT, AUTOMATED 235 10^3/uL (150-450); WHITE BLOOD COUNT 7.7 10^3/uL (4.0-10.0)
[2020-08-23 21:44] LABS: HCG, SERUM QUALITATIVE NEGATIVE (NEGATIVE)
[2020-08-23 21:45] LABS: AMPHETAMINES LEVEL URINE NEGATIVE (NEGATIVE); BARBITURATES URINE NEGATIVE (NEGATIVE); BENZODIAZEPINES URINE NEGATIVE (NEGATIVE); CANNABINOIDS URINE NEGATIVE (NEGATIVE); COCAINE METABOLITE URINE NEGATIVE (NEGATIVE); METHADONE URINE NEGATIVE (NEGATIVE); OPIATES URINE NEGATIVE (NEGATIVE); PHENCYCLIDINE URINE NEGATIVE (NEGATIVE)
[2020-08-23 21:58] LABS: RSV AMPLIFICATION NEGATIVE (NEGATIVE)
[2020-08-23 22:02] LABS: ACETAMINOPHEN LEVEL < 2.0 UG/ML (10.0-30.0); ALBUMIN 4.1 GM/DL (3.2-5.2); ALT/SGPT 48 U/L (12-78); BILIRUBIN,DIRECT 0.1 MG/DL (0.0-0.2); BILIRUBIN,TOTAL 0.3 MG/DL (0.2-1.0); BLOOD UREA NITROGEN 14 MG/DL (7-18); CALCIUM LEVEL 8.7 MG/DL (8.5-10.1); CARBON DIOXIDE LEVEL 23 MEQ/L (21-32); CHLORIDE LEVEL 111 MEQ/L (98-107); CREATININE FOR GFR 0.74 MG/DL (0.55-1.30); ETHYL ALCOHOL (ETHANOL) < 0.003 % (0.000-0.010); GLUCOSE, FASTING 103 MG/DL (70-100); POTASSIUM SERUM 3.6 MEQ/L (3.5-5.1); SALICYLATE LEVEL < 1.7 MG/DL (5.0-30.0); SODIUM LEVEL 144 MEQ/L (136-145); TOTAL PROTEIN 7.9 GM/DL (6.4-8.2)
[2020-08-24] MEDS ORDERED: VRAY3CAP PO (19:50)
[2020-08-24] MEDS ORDERED: TOPI100T9 PO (19:50)
[2020-08-24] MEDS ORDERED: TRAZ-252 PO (19:50)
[2020-08-24] MEDS ORDERED: NAPR250T4 PO (19:50)
[2020-08-24] MEDS ORDERED: CHLO100T30 PO (19:50)
[2020-08-24] MEDS ORDERED: LORA1TAB4 PO (19:50)
[2020-08-24] MEDS ORDERED: CHLO25TA38 PO (19:50)
== END 2020-08-24 00:30 | disposition home or self-care (01) ==
LOC: M ED 20:42
DX: F60.3 Borderline personality disorder (principal); Z79.899 Other long term (current) drug therapy; Z88.8 Allergy status to other drugs, medicaments and biological substances

== ENCOUNTER 2020-08-24 15:52 | Inpatient (IN) | payer OTHER ==
[~2020-08-24] VITALS: Ht 167.6 cm; Wt 128.0 kg
[~2020-08-24 15:52] MED LIST changes: +NAPR-849 PO; -NAPR250T4 PO
--- OUTSIDE RECORDS SUMMARY | 2020-08-24 15:59 | CCD ---
Author Author Yareli Farley Organization Unknown Address [address] [place] [phone] Phone Care Team Providers Care Yam Curer Name Role Phone Zeyad Farley PCP Allergies, Adverse Reactions, Alerts Concept Allergy Name Reaction Severity Onset Date Status Documentation Date Phone Number Npid Taxonomy Code Taxonomy Desc Author Last Name Author Kassie rst Name Concept Type [id number] Risperdal unspecified Active 03/03/2019 RXNORM Problem List Concept Problem Description Status Start Date Created Date Resolv ed Date Snomed Code F60.3 Borderline Personality Disorder Active 08/23/19 21 F32.1 Major Depressive Disorder, Single episode, Moderate Active 08/23/2020 Medications Rx Norm Medication Route Route Concept Start Date Stop Date Dosage Aldair quency Duration Formula Strength Dosage Form Dosage Form Code Dosage Description Medication Id Account Npid Author First Name Author Last Name Taxonomy Code Taxonomy Desc Phone Number [id number] Celexa by mouth [id number] 10/02/2019 once a day 40 mg tablet [id number] Tammie Kent [id number] Psychiatric/Mental Health [id number] Social History Social History Element Description Concept Effective Date Smoking Status Unknown if ever smoked [id number] Immunizations No Data in Section Vital Signs No Data in Section Procedures Date Concept Id Description Targeted Site Concept Targeted Site Concept Type 08/23/2020 [id number] Psychiatric Diagnostic Evaluation (Non-Medical) CPT Patient has no history of implantable de vices Encounters Encounter Start Date End Date Encounter Type Description Diagnosis Di agnosis Desc Location Author First Name Author Last Name Npid Taxonomy Cod e Taxonomy Desc Phone Number Location Addr1 Location Addr2 Location [facility] Location [facility] [id number] 08/23/2020 08/23/2020 [id number] Psychiatric Pauly gnostic Evaluation (Non-Medical) F60.3 Borderline personality disorder [facility] Zeyad [phone] [id number] Practice Performance Manager [id number] [phone] [phone] Plan of Treatment No Data in Section Lab Results No Data in Section Instructions No Data in Section Insurance Providers Insurance Id Policy Effective Date Policy Thru Date [employer] Liliam rogers [id number] 2020 NESHA - MEDICA ID MANAGED
[2020-08-24 17:11] LABS: HEMOGLOBIN 14.4 g/dl (12.0-15.5); MEAN CORPUSCULAR HEMOGLOBIN 29.4 pg (27.0-33.0); MEAN CORPUSCULAR HGB CONC 32.7 g/dl (32.0-36.5); MEAN CORPUSCULAR VOLUME 89.8 fl (80.0-96.0); PLATELET COUNT, AUTOMATED 211 10^3/uL (150-450); WHITE BLOOD COUNT 9.3 10^3/uL (4.0-10.0)
[2020-08-24 17:35] LABS: AMPHETAMINES LEVEL URINE NEGATIVE (NEGATIVE); BARBITURATES URINE NEGATIVE (NEGATIVE); BENZODIAZEPINES URINE NEGATIVE (NEGATIVE); CANNABINOIDS URINE NEGATIVE (NEGATIVE); COCAINE METABOLITE URINE NEGATIVE (NEGATIVE); METHADONE URINE NEGATIVE (NEGATIVE); OPIATES URINE NEGATIVE (NEGATIVE); PHENCYCLIDINE URINE NEGATIVE (NEGATIVE)
[2020-08-24 17:53] LABS: ACETAMINOPHEN LEVEL < 2.0 UG/ML (10.0-30.0); ALBUMIN 4.3 GM/DL (3.2-5.2); ALT/SGPT 55 U/L (12-78); BILIRUBIN,DIRECT < 0.1 MG/DL (0.0-0.2); BILIRUBIN,TOTAL 0.3 MG/DL (0.2-1.0); BLOOD UREA NITROGEN 15 MG/DL (7-18); CALCIUM LEVEL 8.3 MG/DL (8.5-10.1); CARBON DIOXIDE LEVEL 19 MEQ/L (21-32); CHLORIDE LEVEL 112 MEQ/L (98-107); CREATININE FOR GFR 0.75 MG/DL (0.55-1.30); ETHYL ALCOHOL (ETHANOL) < 0.003 % (0.000-0.010); GLUCOSE, FASTING 94 MG/DL (70-100); POTASSIUM SERUM 4.1 MEQ/L (3.5-5.1); SALICYLATE LEVEL < 1.7 MG/DL (5.0-30.0); SODIUM LEVEL 143 MEQ/L (136-145); TOTAL PROTEIN 7.8 GM/DL (6.4-8.2)
[2020-08-24 18:11] LABS: HCG, SERUM QUALITATIVE NEGATIVE (NEGATIVE)
[2020-08-24] MEDS ORDERED: NITROFURANTOIN (MACROBID) 100 MG CAP PO ONE (18:30)
[2020-08-24] MEDS ORDERED: MOM 30ML SUSPENSION UDC PO PRN (19:15)
[2020-08-24] MEDS ORDERED: traZODone 50 MG TAB PO PRN (19:15)
[2020-08-24] MEDS ORDERED: CHLO100T30 PO (19:50)
[2020-08-24] MEDS ORDERED: LORA1TAB4 PO (19:50)
[2020-08-24] MEDS ORDERED: TOPI100T9 PO (19:50)
[2020-08-24] MEDS ORDERED: CHLO25TA38 PO (19:50)
[2020-08-24] MEDS ORDERED: VRAY3CAP PO (19:50)
[2020-08-24] MEDS ORDERED: TRAZ-252 PO (19:50)
[2020-08-24] MEDS ORDERED: NAPR-849 PO (19:50)
[2020-08-24 21:17] VITALS: BP 133/88
[2020-08-24] MEDS: ACETAMINOPHEN TAB 650MG DOSE (2X325MG) PO PRN (22:17)
[2020-08-25] MEDS: ACETAMINOPHEN TAB 650MG DOSE (2X325MG) PO PRN ×2 (13:04→19:19)
[2020-08-25 17:07] VITALS: BP 166/98
--- NOTE | 2020-08-25 17:20 | MHHPE ---
[facility] HISTORY AND PHYSICAL DATE OF ADMISSION: 08/24/2020 This is an assessment. It is being done on video initially, in the presence of staff. CHIEF COMPLAINT: Feels suicidal. SUBJECTIVE: She is 19 years old. She is single, has had several inpatient hospitalizations and was discharged from the inpatient unit about four days ago, this was after less than a day's stay and that itself was after she had been discharged earlier in the week after a lengthy stay. Please refer to previous summaries for details related to circumstances of recent hospitalizations, hospital course and recommendations. Says feels depressed and suicidal, was thinking of overdosing on her medicines or running in front of a car, says has been trying to consider doing that as she has been stressed, various factors, suggests it has something to do with her housing recently and that she would be in temporary accommodations, could stay at her father's place until about Wednesday (today is Wednesday) and after that, there is some uncertainty as to where she could go. Suggests would be homeless, but not quite sure if that is accurate. Says eventually wants to move in with her boyfriend together. He stays in a residential facility in [place]. She says they would wish to seek and apartment on their own. PAST PSYCHIATRIC HISTORY: Please refer to previous summaries. MENTAL STATUS EXAMINATION: She is neat, cooperative. No agitation. No psychomotor retardation. Coherent. No abnormal movements noted. Affect is reactive. Has suicidal thoughts with confirmed plans. No homicidal ideas or intents. No evidence of any psychosis at present. Cognition grossly intact. Judgment and insight impaired. ASSESSMENT: 1. Other specified bipolar related disorders. 2. Currently depressed. 3. History of borderline personality disorder, though it may be too early to diagnose her with that, given her age. 4. Poor social support. 5. Housing difficulties. PLAN: She is admitted to the inpatient psychiatry unit, placed on relevant precautions. She is to be seen by medicine. We will call them if consultation if needed, but she will get a routine evaluation from them. I would suggest that this evening the patient's current medication regimen, including the Thorazine ("promazine") 125 mg twice a day. Encourage participation in activities in the unit. Would suggest starting discharge planning as soon as possible to explore further, more stable housing. Further recommendations will be made depending on the clinical picture. I will see her later today in the unit to complete the assessment and further discuss the plan. She will be discharged with follow up when stable. I would anticipate a 3-5 day stay. Seen in the farooq a little later, the history, assessment and plan are discussed, mental status done, is a bit more anxious than when seen a little earlier. ROSSY
[2020-08-25] MEDS: chlorproMAZINE 25 MG TABLET PO SCH (19:51)
[2020-08-25] MEDS: TOPIRAMATE (TopAMAX) 100 MG TAB PO SCH (19:52)
[2020-08-25] MEDS: ChlorproMAZINE 100 MG TABLET PO SCH (19:52)
[2020-08-25] MEDS ORDERED: chlorproMAZINE INJ 50MG/2ML AMP (J3230) IM STA (23:13)
[2020-08-25] MEDS ORDERED: LORazepam 2 MG/ML VIAL IM STA (23:13)
[2020-08-25] MEDS ORDERED: LORazepam 2 MG/ML VIAL As Ordered ONE (23:19)
[2020-08-25] MEDS ORDERED: chlorproMAZINE INJ 50MG/2ML AMP (J3230) As Ordered ONE (23:19)
--- NOTE | 2020-08-25 23:19 | MHIR ---
General Date: Aug 25, 2020 Time Initiated: 22:55 Restraint Documentation Order/Evaluation FACE TO FACE: Yes. PHYSICIAN ASSESSMENT: Patient was walking down keith, kicking doors, threatening staff. REASON FOR RESTRAINT: Patient poses imminent danger of harming self or others: Aggressive physically and verbally. Self harm DE-ESCALATION INTERVENTIONS ATTEMPTED BEFORE USE OF RESTRAINTS: Verbal de- escalation, redirection, staff support. [MECHANICAL AND/OR CHEMICAL] RESTRAINTS USED: 4 point mechanical restraints. Thorazine 50mg IMand Ativan 1mg IM LENGTH OF TIME ORDERED IN RESTRAINTS: 240 minutes. WHEN TO DISCONTINUE RESTRAINTS: When the patient is no longer a threat to themselves or others. Post evaluation of restraint due in 24 hours. CHICA BOBBY DO Aug 25, 2020 23:19
--- NOTE | 2020-08-26 | HPEPDOC ---
General Date of Admission Aug 24, 2020 at 19:13 Date of Service: Aug 25, 2020 Chief Complaint The patient is a 19-year-old female admitted with a reason for visit of Bipolar Do. Source: Patient, RN/MD History of Present Illness 19 year old female was admitted for suicidal ideas. She has PMH of bipolar, depression, antisocial personality, ineffective coping, malingering, multiple psychiatric admissions, ingestion of various chemicals and medications, morbid obesity, suicidal attempts and PTSD. She has repeated admissions and is more in the hospital in the last year than outside. I last saw her 2 days ago. Today she denies any complaints. She is anxious about her housing situation. She complained of left ankle pain about 5/10 in intensity dull aching in nature no radiation. Home Medications Scheduled Cetirizine HCl (Cetirizine HCl) 10 Mg Tablet, 10 MG PO DAILY, (Reported) Chlorpromazine HCl (Chlorpromazine HCl) 25 Mg Tablet, 50 MG PO BID, (Reported) TAKE WITH 200MG FOR A TOTAL OF 250MG BID Chlorpromazine HCl (Chlorpromazine HCl) 100 Mg Tablet, 200 MG PO BID, (Reported) TAKE WITH 50MG FOR A TOTAL OF 250MG BID Topiramate (Topiramate) 100 Mg Tablet, 200 MG PO BID, (Reported) Trazodone HCl (Trazodone HCl) 50 Mg Tablet, 50 MG PO QHS, (Reported) Scheduled PRN Lorazepam (Lorazepam) 1 Mg Tablet, 1 MG PO BID PRN for ANXIETY/AGITATION, (Reported) Naproxen (Naproxen) 250 Mg Tablet, 250 MG PO BID PRN for PAIN, (Reported) Allergies Coded Allergies: haloperidol (Verified Adverse Reaction, Intermediate, LOCKJAW, 01/03/20) Has required & received this med many time without EPS noted risperidone (Verified Adverse Reaction, Mild, PSORIASIS, 11/26/19) Past Medical History Medical History PTSD Suicide attempts with ingestion of various chemicals and medications, hanging Borderline personality disorder. Bipolar disorder. Depression. Morbid obesity. Antisocial personality disorder. Malingering. ADHD Surgical History No surgical history Family History Father and mother alive and well Social History * Smoker: Denies Alcohol: Denies Drugs: denies A-FIB/CHADSVASC A-FIB History Current/History of A-Fib/PAF?: No Review of Systems Constitutional: Denies: Chills, Fever, Night Sweats Eyes: Denies: Pain, Vision change ENT: Denies: Head Aches, Ear Pain, Dysphagia Skin: Denies: Rash, Lesions, Breakdown Pulmonary: Denies: Dyspnea, Cough Cardiovascular: Denies: Chest Pain, Palpitations, Orthopnea, Paroxysmal Noc. Dyspnea, Lt Headedness Gastrointestinal: Denies: Nausea, Vomiting, Abdominal Pain, Diarrhea Genitourinary: Denies: Dysuria, Frequency, Incontinence, Retention Hematologic: Denies: Bruising, Bleeding Excessively Musculoskeletal: Reports: Foot Pain, Joint Pain; Denies: Neck Pain, Back Pain, Muscle Pain, Spasms Neurological: Denies: Weakness, Numbness, Change in speech, Confusion Psych: Reports: Mood Normal; Denies: Depression, Memory Issues Physical Examination General Exam: Positive: Alert, No Acute Distress Eye Exam: Positive: PERRLA, Conjunctiva & lids normal, EOMI; Negative: Sclera icteric ENT Exam: Positive: Atraumatic, Mucous membr. moist/pink, Pharynx Normal Neck Exam: Positive: Supple; Negative: JVD, thyromegaly Chest Exam: Positive: Clear to auscultation, Normal air movement Heart Exam: Positive: Rate Normal, Regular Rhythm, Normal S1, Normal S2; Negative: Murmurs, Rubs Telemetry: Positive: No significant arrhythmia Abdomen Exam: Positive: Normal bowel sounds, Soft; Negative: Tenderness, Hepatospenomegaly Extremity Exam: Positive: Tenderness (of the left foot); Negative: Clubbing, Cyanosis, Edema Skin Exam: Positive: Nl turgor and temperature; Negative: Breakdown, Lesion Neuro Exam: Positive: Normal Gait, Normal Speech, Cranial Nerves 3-12 NL, Reflexes 2+ Psych Exam: Positive: Mental status NL, Mood NL, Oriented x 3 Vital Signs Vital Signs Date Time Temp Pulse Resp B/P (MAP) Pulse Ox O2 Delivery O2 Flow Rate FiO2 08/25/20 17:07 98.3 98 18 166/98 (120) 99 Room Air Laboratory Data Microbiology Microbiology 08/24/20 Urine Culture, Received Pending Assessment/Plan 19 year old female was admitted for suicidal ideas. She has PMH of bipolar, depression, antisocial personality, ineffective coping, malingering, multiple psychiatric admissions, ingestion of various chemicals and medications, morbid obesity, suicidal attempts and PTSD. She complained of Left ankle pain. Left ankle pain she is able to bear weight though shows some preference to the right leg while walking. No swelling or redness, able to passively move the ankle. Will continue tylenol. If needed will add ibuprofen If continues to have trouble with weight bearing will get xray. UTI UA with WBC numerous. culture sent. Psychiatric issues continue as per psychiatry. Plan / VTE VTE Prophylaxis Ordered?: No (freely ambulatory) AYALA DE LA CRUZ MD Aug 26, 2020 00:00
[2020-08-26] MEDS: ChlorproMAZINE 100 MG TABLET PO SCH ×2 (09:33→20:37)
[2020-08-26] MEDS: chlorproMAZINE 25 MG TABLET PO SCH ×2 (09:33→20:37)
[2020-08-26] MEDS: TOPIRAMATE (TopAMAX) 100 MG TAB PO SCH ×2 (09:33→20:38)
--- NOTE | 2020-08-26 16:29 | MHPR ---
General Date: Aug 26, 2020 Time: 15:00 Post-Restraint Evaluation THE OUTCOME OF THE RESTRAINT: Posiitve, effective, patient was able to calm down last night after she came off from the restraints EFFECTIVENESS OF THE RESTRAINT: Mechanical and/or chemical: Positive ANY EVIDENCE THAT THE PATIENT WAS AFFECTED EMOTIONALLY: The patient receive support and guidance, she was not affected negatively by the restraints ANY NEED FOR COUNSELING/ASSISTANCE: She received support, re direction and guidance from staff members while she was on restraints and once she came off the restraints CHANGES IN TREATMENT PLAN: She will continue to receive her PRN's, she will continue to receive support, she will be encouraged to attend groups and apply coping skills, medication adjustments will be done if needed, she will be enc ouraged to speak to staff if feeling unsafe RECOMMENDATIONS FOR FUTURE INCIDENTS: Please read above. DAVONTE OLIVEROS MD Aug 26, 2020 16:29
--- NOTE | 2020-08-26 16:36 | MHIPNPDOC ---
[facility] Progress Note Progress Note DATE OF SERVICE: 08/26/20 HISTORY: As per ED report: "PT was admitted to [facility] from 06/2020 until 08/2020. She had a temporary apartment and within just a few hours she returned to ED alleging that she had overdosed (labs did not support). She was admitted and then d/c the next day but she had lost the apartment g[place] and it was decided she would not be allowed to stay at that apartment. PT returned to ED with SI (last night) but then she was able to work out with her father that she could stay with him over the weekend until she met with her nurse case manager in regards to an apartment they had been working on. Today PT was at her father's and she bagen to evaluate her life, the traumas daphne has experienced and her confusion as to what she will do with her life. She began to think of overdosing to kill herself so she came to ED requesting admission. On the way to ED PT stated that she struggled with not stepping in front of moving cars. PT cannot CFS at this time and states she does not care where she is admitted as long as she is admitted." VITAL SIGNS: See below. NEW TEST RESULTS: See below CURRENT MEDICATIONS: See below. MENTAL STATUS EXAMINATION: Patient is a 19 year old female, who is alert, dressed in hospital clothes, with good hygiene, poor eye contact Speech: Is loud, rambling at times, normal tone. Language skills are intact. Thought processes including: linear but not necessarily coherent. Thought content: positive for suicidal ideation, anxious, depressed and frustrating thoughts, denies homicidal ideation. Abstract reasoning, and computation: fair. Description of associations: not loose . Description of abnormal or psychotic thoughts: she denies TAV hallucinations, she is no responding to internal stimuli Judgment: poor Insight: poor. Orientation: x 3. Recent and remote memory: intact Attention span and concentration: fair. Language: adequate. Fund of knowledge: Mood: irritable/angry. Affect: congruent with mood. DIAGNOSES: 1. Other specified bipolar related disorders. 2. Currently depressed. 3. History of borderline personality disorder, though it may be too early to diagnose her with that, given her age. 4. Poor social support. 5. Housing difficulties. ASSESSMENT: Very irritable, frustrated, she says she feels suicidal, but she still thinks she can be discharged. This is an ongoing topic with Yareli, where she doesn't want to realize that if she says she is suicidal or shows any dangerous behavior, she can't be discharged. then, there's the issue about self sabotage, where she gets dischrged and she comes back to the [facility] Room a couple of hours later. At this tpoint, we will continue with the current treatment plan, I have requested her to go to her room and rest, if she can. She is very irritable and I'm trying to keep her from coding. She has been told that to, many of the [facility] are closed and we won't be able to do anything about her housing/living situation until tomorrow. MANAGEMENT PLAN: . TIME SPENT: 20 minutes. Vital Signs Vital Signs Date Time Temp Pulse Resp B/P (MAP) Pulse Ox O2 Delivery O2 Flow Rate FiO2 08/25/20 17:07 98.3 98 18 166/98 (120) 99 Room Air Current Medications Current Medications Medications (Trade) Dose Ordered Sig/Brielle Route PRN Reason Start Time Stop Time Status Last Admin Dose Admin Acetaminophen (Tylenol Tab) 650 mg Q6HP PRN PO HEADACHE or DISCOMFORT 08/24/20 19:15 08/25/20 19:19 Al Hydrox/Mg Hydrox/Simethicone (Mylanta) 30 ml Q4HP PRN PO HEARTBURN/INDIGESTION 08/24/20 19:15 Chlorpromazine HCl (Thorazine) 25 mg BID PO 08/25/20 21:00 08/26/20 09:33 Chlorpromazine HCl (Thorazine) 25 mg TID PRN PO anxiety/agitation 08/25/20 17:45 Chlorpromazine HCl (Thorazine) 50 mg STAT STAT IM 08/25/20 23:13 08/25/20 23:17 DC 08/25/20 23:26 Chlorpromazine HCl (Thorazine) 100 mg BID PO 08/25/20 21:00 08/26/20 09:33 Home Med (Med Rec Complete!) ASDIRECTED XX 08/24/20 20:00 08/24/20 19:54 DC Lorazepam (Ativan) 1 mg STAT STAT IM 08/25/20 23:13 2/14/21 23:17 DC 08/25/20 23:26 Magnesium Hydroxide (Milk Of Magnesia) 30 ml DAILYPRN PRN PO CONSTIPATION 08/24/20 19:15 Topiramate (TopAMAX) 200 mg BID PO 08/25/20 21:00 08/26/20 09:33 Trazodone HCl (Desyrel) 50 mg QHSP PRN PO INSOMNIA 08/24/20 19:15 Allergies Coded Allergies: haloperidol (Verified Adverse Reaction, Intermediate, LOCKJAW, 01/03/20) Has required & received this med many time without EPS noted risperidone (Verified Adverse Reaction, Mild, PSORIASIS, 11/26/19) DAVONTE OLIVEROS MD Aug 26, 2020 15:42
[2020-08-26] MEDS: CEFDINIR 300 MG CAP (OMNICEF) PO SCH (20:38)
[2020-08-26] MEDS ORDERED: chlorproMAZINE INJ 50MG/2ML AMP (J3230) IM STA (21:32)
[2020-08-26] MEDS ORDERED: LORazepam 2 MG/ML VIAL IM STA (21:32)
--- NOTE | 2020-08-26 21:41 | MHIR ---
General Date: Aug 26, 2020 Time Initiated: 21:30 Restraint Documentation Order/Evaluation FACE TO FACE: Yes. PHYSICIAN ASSESSMENT: Patient aggressive and was banging head against wall. REASON FOR RESTRAINT: Patient poses imminent danger of harming self or others: Self harm and disruptive. DE-ESCALATION INTERVENTIONS ATTEMPTED BEFORE USE OF RESTRAINTS: Verbal de- escalation and redirection [MECHANICAL AND/OR CHEMICAL] RESTRAINTS USED: Chemical restraints. Thorazine 50 mg IM and Lorazepam 1 mg IM LENGTH OF TIME ORDERED IN RESTRAINTS: No mechanical restraint used, N/A. WHEN TO DISCONTINUE RESTRAINTS: No mechanical restraint used, N/A. Post evaluation of restraint due in 24 hours. CHICA BOBBY DO Aug 26, 2020 21:41
[2020-08-27] MEDS: TOPIRAMATE (TopAMAX) 100 MG TAB PO SCH ×2 (09:00→20:38)
[2020-08-27] MEDS: ChlorproMAZINE 100 MG TABLET PO SCH ×2 (09:00→20:38)
[2020-08-27] MEDS: chlorproMAZINE 25 MG TABLET PO SCH ×2 (09:00→20:39)
[2020-08-27] MEDS: CEFDINIR 300 MG CAP (OMNICEF) PO SCH ×2 (09:16→20:38)
--- NOTE | 2020-08-27 13:49 | MHIPNPDOC ---
[facility] Progress Note Progress Note DATE OF SERVICE: 08/27/20 HISTORY: As per ED report: "PT was admitted to [facility] from 06/2020 until 08/2020. She had a temporary apartment and within just a few hours she returned to ED alleging that she had overdosed (labs did not support). She was admitted and then d/c the next day but she had lost the apartment [place] and it was decided she would not be allowed to stay at that apartment. PT returned to ED with SI (last night) but then she was able to work out with her father that she could stay with him over the weekend until she met with her manager of case management in regards to an apartment they had been working on. Today PT was at her father's and she bagen to evaluate her life, the traumas daphne has experienced and her confusion as to what she will do with her life. She began to think of overdosing to kill herself so she came to ED requesting admission. On the way to ED PT stated that she struggled with not stepping in front of moving cars. PT cannot CFS at this time and states she does not care where she is admitted as long as she is admitted." VITAL SIGNS: See below. NEW TEST RESULTS: See below CURRENT MEDICATIONS: See below. MENTAL STATUS EXAMINATION: Patient is a 19 year old female, who is alert, dressed in hospital clothes, with good hygiene, poor eye contact Speech: normal rate tone and volume Language skills are intact. Thought processes including: linear and goal oriented Thought content: denies suicidal ideation, denies homicidal ideation. feels depressed and anxious Abstract reasoning, and computation: fair. Description of associations: not loose . Description of abnormal or psychotic thoughts: she denies TAV hallucinations, she is no responding to internal stimuli Judgment: fair Insight: fair Orientation: x 3. Recent and remote memory: intact Attention span and concentration: fair. Language: adequate. Fund of knowledge: Mood: Euthymic. Affect: congruent with mood. DIAGNOSES: 1. Other specified bipolar related disorders. 2. Currently depressed. 3. History of borderline personality disorder, though it may be too early to diagnose her with that, given her age. 4. Poor social support. 5. Housing difficulties. ASSESSMENT: Patient states that she feels that she may be addicted to her drugs because she reports that she is often trying to take her medications at home, it is her coping. It was reported that yesterday she was trying to increase her behaviors possibly to be on 1:1 observation per Staff report. In today's session we explored her desire for wanting to be independent in her own apartment but that she has never been alone in an apartment more than a week. She states that she cannot cook and would probably not use a stove, can only use a microwave to prepare her meals. The patient has been in and out of children's home and RTFs most of her childhood and adolescent life. Patient is often child- like on the unit. At times, she is trying to annoy other patients, or disregarding their personal crises and making fun of the peer. At this time, she is observed to be staff splitting. We explored that being discharged, while she does not want to be in the hospital, she often feels scared to live on her own, never having been on her own and never having to rely on herself for a schedule or regimen that has been dependent on her to make without the structure of a children's home or residential treatment facility or inpatient psychiatric unit. MANAGEMENT PLAN: Continue all medications as ordered TIME SPENT:25 minutes. Vital Signs Vital Signs Date Time Temp Pulse Resp B/P (MAP) Pulse Ox O2 Delivery O2 Flow Rate FiO2 08/25/20 17:07 98.3 98 18 166/98 (120) 99 Room Air Current Medications Current Medications Medications (Trade) Dose Ordered Sig/Brielle Route PRN Reason Start Time Stop Time Status Last Admin Dose Admin Acetaminophen (Tylenol Tab) 650 mg Q6HP PRN PO HEADACHE or DISCOMFORT 08/24/20 19:15 08/25/20 19:19 Al Hydrox/Mg Hydrox/Simethicone (Mylanta) 30 ml Q4HP PRN PO HEARTBURN/INDIGESTION 08/24/20 19:15 Cefdinir (Omnicef) 300 mg BID PO 08/26/20 21:00 08/27/20 09:16 Chlorpromazine HCl (Thorazine) 25 mg BID PO 08/25/20 21:00 08/26/20 20:37 Chlorpromazine HCl (Thorazine) 25 mg TID PRN PO anxiety/agitation 08/25/20 17:45 Chlorpromazine HCl (Thorazine) 50 mg STAT STAT IM 08/25/20 23:13 08/25/20 23:17 DC 08/25/20 23:26 Chlorpromazine HCl (Thorazine) 50 mg STAT STAT IM 08/26/20 21:32 08/26/20 21:34 DC 08/26/20 21:51 Chlorpromazine HCl (Thorazine) 100 mg BID PO 08/25/20 21:00 08/26/20 20:37 Home Med (Med Rec Complete!) ASDIRECTED XX 08/24/20 20:00 08/24/20 19:54 DC Ibuprofen (Advil) 600 mg Q8HP PRN PO PAIN 08/26/20 19:00 Lorazepam (Ativan) 1 mg STAT STAT IM 08/25/20 23:13 08/25/20 23:17 DC 08/25/20 23:26 Lorazepam (Ativan) 1 mg STAT STAT IM 08/26/20 21:32 08/26/20 21:34 DC 08/26/20 21:51 Magnesium Hydroxide (Milk Of Magnesia) 30 ml DAILYPRN PRN PO CONSTIPATION 08/24/20 19:15 Topiramate (TopAMAX) 200 mg BID PO 08/25/20 21:00 08/26/20 20:38 Trazodone HCl (Desyrel) 50 mg QHSP PRN PO INSOMNIA 08/24/20 19:15 Allergies Coded Allergies: haloperidol (Verified Adverse Reaction, Intermediate, LOCKJAW, 01/03/20) Has required & received this med many time without EPS noted risperidone (Verified Adverse Reaction, Mild, PSORIASIS, 11/26/19) DECLAN SAENZ NP Aug 27, 2020 13:49
[2020-08-27 14:00] VITALS: BP 131/75
[2020-08-27] MEDS: MAALOX 30 ML SUSP *UDC PO PRN (19:29)
[2020-08-27] MEDS: chlorproMAZINE 25 MG TABLET PO PRN (20:40)
[2020-08-27] MEDS ORDERED: LORazepam 2 MG/ML VIAL IM STA ×2 (22:08→23:04)
[2020-08-27] MEDS ORDERED: HALOPERIDOL 5MG/ML VIAL (J1630 PER 1) IM STA ×2 (22:08→23:00)
[2020-08-27] MEDS ORDERED: diphenhydrAMINE 50MG/ML VIAL (J1200) IM STA ×2 (22:08→23:04)
[2020-08-27] MEDS ORDERED: HALOPERIDOL 5MG/ML VIAL (J1630 PER 1) As Ordered ONE (22:14)
[2020-08-27] MEDS ORDERED: diphenhydrAMINE 50MG/ML VIAL (J1200) As Ordered ONE (22:14)
[2020-08-27] MEDS ORDERED: LORazepam 2 MG/ML VIAL As Ordered ONE (22:15)
--- NOTE | 2020-08-27 22:27 | MHIR ---
General Date: Aug 27, 2020 Time Initiated: 22:20 Restraint Documentation Order/Evaluation FACE TO FACE: Yes PHYSICIAN ASSESSMENT: Patient was verbally aggressive, threatening staff and punching wall. She was also drink soap REASON FOR RESTRAINT: Patient poses imminent danger of harming self or others: Verbally aggressive and causing self harm. DE-ESCALATION INTERVENTIONS ATTEMPTED BEFORE USE OF RESTRAINTS: Verbal de- escalation and redirection [MECHANICAL AND/OR CHEMICAL] RESTRAINTS USED: Chemical restraint, Benadryl, Haldol, Ativan LENGTH OF TIME ORDERED IN RESTRAINTS: No mechanical restraint. N/A WHEN TO DISCONTINUE RESTRAINTS: No mechanical restraint. N/A Post evaluation of restraint due in 24 hours. CHICA BOBBY DO Aug 27, 2020 22:27
[2020-08-27] MEDS ORDERED: LORazepam 2 MG/ML VIAL IV STA (23:00)
[2020-08-27] MEDS ORDERED: diphenhydrAMINE 50MG/ML VIAL (J1200) IV STA (23:00)
[2020-08-27 23:05] VITALS: BP 143/75
[2020-08-27 23:15] VITALS: BP 139/69
--- NOTE | 2020-08-27 23:18 | MHIR ---
General Date: Aug 27, 2020 Time Initiated: 23:05 Restraint Documentation Order/Evaluation FACE TO FACE: Yes. PHYSICIAN ASSESSMENT: Would not follow instructions, ran around and threatened to hit staff REASON FOR RESTRAINT: Patient poses imminent danger of harming self or others: Imminent danger to staff and self DE-ESCALATION INTERVENTIONS ATTEMPTED BEFORE USE OF RESTRAINTS: Verbal de- escalation and redirection [MECHANICAL AND/OR CHEMICAL] RESTRAINTS USED: Mechanical restraint with 4 point and chemical restraint with Benadryl, Haldol, and Ativan LENGTH OF TIME ORDERED IN RESTRAINTS: 240 minutes. WHEN TO DISCONTINUE RESTRAINTS: When the patient is no longer a threat to themselves or others. Post evaluation of restraint due in 24 hours. CHICA BOBBY DO Aug 27, 2020 23:18
[2020-08-27 23:45] VITALS: BP 139/66
[2020-08-28] VITALS: BP 149/78
[2020-08-28 00:15] VITALS: BP 139/66
[2020-08-28 00:30] VITALS: BP 148/67
[2020-08-28] MEDS: chlorproMAZINE 25 MG TABLET PO SCH ×2 (12:23→20:16)
[2020-08-28] MEDS: ChlorproMAZINE 100 MG TABLET PO SCH ×2 (12:23→20:16)
[2020-08-28] MEDS: CEFDINIR 300 MG CAP (OMNICEF) PO SCH ×2 (12:23→20:16)
[2020-08-28] MEDS: TOPIRAMATE (TopAMAX) 100 MG TAB PO SCH ×2 (12:24→20:15)
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
[2020-08-28] MEDS: MAALOX 30 ML SUSP *UDC PO PRN (21:00)
[2020-08-29] MEDS: CEFDINIR 300 MG CAP (OMNICEF) PO SCH ×2 (08:52→20:09)
--- NOTE | 2020-08-29 09:37 | MHIPNPDOC ---
[facility] Progress Note Progress Note DATE OF SERVICE: 08/29/20 HISTORY: Marilu Sanchez was discussed with [employer] today. Her significant history of numerous placements and sabotage of those placements, has left her with few choices for living. The patient continues to say she wants to be discharged today, but her countless number of attempts by organizations to place her have all failed. The patient states that she gets nervous when she achieves these placements and sabotages them. He is clearly used to suffering and anxiety and ends up placing herself in those situations which she is more comfortable with. From a medication point of view. She has requested perhaps to change from Thorazine to Abilify, which we did today. It appears that her attempts at placement and therapy will continue to be met with destructive and self-destructive behaviors by this patient.. VITAL SIGNS: See below. NEW TEST RESULTS: None. CURRENT MEDICATIONS: See below. MENTAL STATUS EXAMINATION: Patient is a [age]-year old female, who is mood unstable and has developed personality style which has caused her to be unable to function in an unstructured atmosphere of any sort. She has apparently been rejected by numerous organizations who have tried to place her.. Speech: Is normal. Language skills are normal. Thought processes including: Focused on discharge. Thought content: Focused on discharge. Abstract reasoning, and computation: Able to abstract. Description of associations: A loose associations. Description of abnormal or psychotic thoughts:, No psychotic thoughts. Judgment: Poor Insight: Fair. Orientation: 3. Recent and remote memory: Intact. Attention span and concentration: Poor. Language:. No abnormalities. Fund of knowledge: Full. Mood: Irritable. Affect:, Anxious. DIAGNOSES: 1., Atypical mood disorder. 2.. Developing personality disorder. 3., Obesity. ASSESSMENT:, 19-year-old female who was enormously unstable MANAGEMENT PLAN:.Continued attempts at placement. Placement and changed to Abilify TIME SPENT: 45 minutes. Vital Signs Vital Signs Date Time Temp Pulse Resp B/P (MAP) Pulse Ox O2 Delivery O2 Flow Rate FiO2 08/28/20 00:30 98.0 80 17 148/67 98 Room Air Current Medications Current Medications Medications (Trade) Dose Ordered Sig/Brielle Route PRN Reason Start Time Stop Time Status Last Admin Dose Admin Acetaminophen (Tylenol Tab) 650 mg Q6HP PRN PO HEADACHE or DISCOMFORT 08/24/20 19:15 08/25/20 19:19 Al Hydrox/Mg Hydrox/Simethicone (Mylanta) 30 ml Q4HP PRN PO HEARTBURN/INDIGESTION 08/24/20 19:15 08/28/20 21:00 Aripiprazole (AbiLIFY) 10 mg BID PO 08/29/20 21:00 UNV Cefdinir (Omnicef) 300 mg BID PO 08/26/20 21:00 08/29/20 08:52 Chlorpromazine HCl (Thorazine) 25 mg BID PO 08/25/20 21:00 08/29/20 09:28 DC 08/28/20 20:16 Chlorpromazine HCl (Thorazine) 25 mg TID PRN PO anxiety/agitation 08/25/20 17:45 08/27/20 20:40 Chlorpromazine HCl (Thorazine) 50 mg STAT STAT IM 08/25/20 23:13 08/25/20 23:17 DC 08/25/20 23:26 Chlorpromazine HCl (Thorazine) 50 mg STAT STAT IM 08/26/20 21:32 08/26/20 21:34 DC 08/26/20 21:51 Chlorpromazine HCl (Thorazine) 100 mg BID PO 08/25/20 21:00 08/29/20 09:28 DC 08/28/20 20:16 Diphenhydramine HCl (Benadryl) 50 mg STAT STAT IM 08/27/20 22:08 08/27/20 22:13 DC 08/27/20 22:24 Diphenhydramine HCl (Benadryl) 50 mg STAT STAT IM 08/27/20 23:04 08/27/20 23:09 DC 08/27/20 23:14 Diphenhydramine HCl (Benadryl) 50 mg STAT STAT IV 08/27/20 23:00 08/27/20 23:09 DC Haloperidol (Haldol) 5 mg STAT STAT IM 08/27/20 23:00 08/27/20 23:03 DC 08/27/20 23:14 Haloperidol (Haldol) 10 mg STAT STAT IM 08/27/20 22:08 08/27/20 22:13 DC 08/27/20 22:25 Home Med (Med Rec Complete!) ASDIRECTED XX 08/24/20 20:00 08/24/20 19:54 DC Ibuprofen (Advil) 600 mg Q8HP PRN PO PAIN 08/26/20 19:00 Lorazepam (Ativan) 1 mg STAT STAT IM 08/25/20 23:13 08/25/20 23:17 DC 08/25/20 23:26 Lorazepam (Ativan) 1 mg STAT STAT IM 08/26/20 21:32 08/26/20 21:34 DC 08/26/20 21:51 Lorazepam (Ativan) 2 mg STAT STAT IM 08/27/20 22:08 08/27/20 22:13 DC 08/27/20 22:24 Lorazepam (Ativan) 2 mg STAT STAT IM 08/27/20 23:04 08/27/20 23:09 DC 08/27/20 23:14 Lorazepam (Ativan) 2 mg STAT STAT IV 08/27/20 23:00 08/27/20 23:09 DC Magnesium Hydroxide (Milk Of Magnesia) 30 ml DAILYPRN PRN PO CONSTIPATION 08/24/20 19:15 Topiramate (TopAMAX) 200 mg BID PO 08/25/20 21:00 08/28/20 20:15 Trazodone HCl (Desyrel) 50 mg QHSP PRN PO INSOMNIA 08/24/20 19:15 Allergies Coded Allergies: haloperidol (Verified Adverse Reaction, Intermediate, LOCKJAW, 01/03/20) Has required & received this med many time without EPS noted risperidone (Verified Adverse Reaction, Mild, PSORIASIS, 11/26/19) REBECA MAHONEY MD Aug 29, 2020 09:37
[2020-08-29] MEDS: TOPIRAMATE (TopAMAX) 100 MG TAB PO SCH ×2 (09:38→20:09)
[2020-08-29] MEDS: ARIPiprazole 10 MG TAB PO SCH ×2 (09:38→20:09)
[2020-08-29] MEDS: ACETAMINOPHEN TAB 650MG DOSE (2X325MG) PO PRN (15:19)
[2020-08-29 19:13] VITALS: BP 138/80
[2020-08-29] MEDS: IBUPROFEN 600MG TAB PO PRN (21:17)
[2020-08-29] MEDS ORDERED: diphenhydrAMINE 50MG CAP PO ONE (23:45)
[2020-08-30] MEDS: ARIPiprazole 10 MG TAB PO SCH ×2 (07:41→20:00)
[2020-08-30] MEDS: TOPIRAMATE (TopAMAX) 100 MG TAB PO SCH ×2 (07:41→20:00)
[2020-08-30] MEDS: CEFDINIR 300 MG CAP (OMNICEF) PO SCH ×2 (07:42→20:00)
[2020-08-30] MEDS: MAALOX 30 ML SUSP *UDC PO PRN (09:16)
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
[2020-08-31 06:53] VITALS: BP 128/58
[2020-08-31] MEDS: CEFDINIR 300 MG CAP (OMNICEF) PO SCH ×2 (08:18→21:11)
[2020-08-31] MEDS: ARIPiprazole 10 MG TAB PO SCH ×2 (08:18→21:13)
[2020-08-31] MEDS: TOPIRAMATE (TopAMAX) 100 MG TAB PO SCH ×2 (08:18→21:11)
[2020-08-31] MEDS: ACETAMINOPHEN TAB 650MG DOSE (2X325MG) PO PRN (22:01)
[2020-09-01] MEDS: TOPIRAMATE (TopAMAX) 100 MG TAB PO SCH ×2 (08:48→20:04)
[2020-09-01] MEDS: CEFDINIR 300 MG CAP (OMNICEF) PO SCH ×2 (08:48→20:03)
[2020-09-01] MEDS: ARIPiprazole 10 MG TAB PO SCH ×2 (08:48→20:03)
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
[2020-09-01] MEDS: CETIRIZINE (ZyrTEC) 10 MG TAB PO SCH (12:21)
[2020-09-01] MEDS: IBUPROFEN 600MG TAB PO PRN (12:23)
[2020-09-01 16:12] VITALS: BP 137/87
[2020-09-02 06:44] VITALS: BP 136/60
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
[2020-09-02] MEDS: CETIRIZINE (ZyrTEC) 10 MG TAB PO SCH (08:00)
[2020-09-02] MEDS: CEFDINIR 300 MG CAP (OMNICEF) PO SCH ×2 (08:00→19:41)
[2020-09-02] MEDS: TOPIRAMATE (TopAMAX) 100 MG TAB PO SCH ×2 (08:01→20:33)
[2020-09-02] MEDS: ARIPiprazole 10 MG TAB PO SCH ×2 (08:01→20:33)
[2020-09-02 18:01] VITALS: BP 128/61
[2020-09-02] MEDS: ACETAMINOPHEN TAB 650MG DOSE (2X325MG) PO PRN (19:42)
[2020-09-02] MEDS: MAALOX 30 ML SUSP *UDC PO PRN (23:32)
[2020-09-03 06:00] VITALS: BP 148/94
[2020-09-03] MEDS: ACETAMINOPHEN TAB 650MG DOSE (2X325MG) PO PRN (06:43)
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
[2020-09-03] MEDS: ARIPiprazole 10 MG TAB PO SCH ×2 (08:39→21:17)
[2020-09-03] MEDS: CEFDINIR 300 MG CAP (OMNICEF) PO SCH (08:39)
[2020-09-03] MEDS: TOPIRAMATE (TopAMAX) 100 MG TAB PO SCH ×2 (08:40→21:17)
[2020-09-03] MEDS: CETIRIZINE (ZyrTEC) 10 MG TAB PO SCH (08:40)
[2020-09-03 18:44] VITALS: BP 139/75
[2020-09-04] MEDS: ARIPiprazole 10 MG TAB PO SCH ×2 (07:56→20:02)
[2020-09-04] MEDS: CETIRIZINE (ZyrTEC) 10 MG TAB PO SCH (07:56)
[2020-09-04] MEDS: TOPIRAMATE (TopAMAX) 100 MG TAB PO SCH ×2 (07:56→20:02)
[2020-09-04] MEDS: ACETAMINOPHEN TAB 650MG DOSE (2X325MG) PO PRN (09:14)
[2020-09-04] MEDS: IBUPROFEN 600MG TAB PO PRN ×2 (14:05→22:24)
[2020-09-04 17:43] VITALS: BP 138/86
[2020-09-05 06:54] VITALS: BP 141/71
[2020-09-05] MEDS: TOPIRAMATE (TopAMAX) 100 MG TAB PO SCH ×2 (08:00→21:17)
[2020-09-05] MEDS: CETIRIZINE (ZyrTEC) 10 MG TAB PO SCH (08:00)
[2020-09-05] MEDS: ARIPiprazole 10 MG TAB PO SCH ×2 (08:00→21:17)
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
[2020-09-05] MEDS: ACETAMINOPHEN TAB 650MG DOSE (2X325MG) PO PRN (09:21)
[2020-09-05] MEDS: hydrOXYzine 25 MG TAB PO SCH ×2 (15:38→21:17)
[2020-09-05 19:02] VITALS: BP 145/73
[2020-09-06] MEDS: ACETAMINOPHEN TAB 650MG DOSE (2X325MG) PO PRN (06:13)
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
[2020-09-06] MEDS: CETIRIZINE (ZyrTEC) 10 MG TAB PO SCH (08:08)
[2020-09-06] MEDS: ARIPiprazole 10 MG TAB PO SCH ×2 (08:08→20:12)
[2020-09-06] MEDS: hydrOXYzine 25 MG TAB PO SCH ×3 (08:08→21:00)
[2020-09-06] MEDS: TOPIRAMATE (TopAMAX) 100 MG TAB PO SCH ×2 (08:09→20:12)
[2020-09-06] MEDS: IBUPROFEN 600MG TAB PO PRN (13:45)
[2020-09-06] MEDS: MAALOX 30 ML SUSP *UDC PO PRN (14:25)
[2020-09-06 17:21] VITALS: BP 144/86
[2020-09-06] MEDS ORDERED: ChlorproMAZINE 100 MG TABLET PO ONE (23:00)
[2020-09-07] MEDS: CETIRIZINE (ZyrTEC) 10 MG TAB PO SCH (09:02)
[2020-09-07] MEDS: TOPIRAMATE (TopAMAX) 100 MG TAB PO SCH ×2 (09:03→20:41)
[2020-09-07] MEDS: hydrOXYzine 50 MG TAB PO SCH ×3 (09:04→20:40)
[2020-09-07] MEDS: ARIPiprazole 10 MG TAB PO SCH ×5 (09:04→21:18)
--- NOTE | 2020-09-07 09:23 | MHIPNPDOC ---
[facility] Progress Note Progress Note DATE OF SERVICE: 09/07/20 HISTORY: 19-year-old female, numerous placement problems. Personality disorder and significant mood swings. Patient had interview yesterday, which was apparen tly successful and she is on a waiting list for placement. However, patient is unable to control her outbursts and moods and last night required prns in the middle of the night prognosis continues quite poorly for her to be able to stay in a placement that is slightly less restrictive than ours I increased her medication, specifically Abilify, but I am not impressed with its results. Patient continued explosiveness and inability to manage her moods and outbursts continues. VITAL SIGNS: See below. NEW TEST RESULTS: None. CURRENT MEDICATIONS: See below. MENTAL STATUS EXAMINATION: Patient is a. 19-year old female, who is explosive and unable to contain her outbursts and suicidal statements. Speech: Is. Normal Language skills are intact. Thought processes including: Swings between friendliness and explosiveness and irritability contain her frustrations. Thought content: As above. Abstract reasoning, and computation:, Can abstract but unable to use it. Description of associations:. No loose associations. Description of abnormal or psychotic thoughts:. No psychotic thought but unable to express any judgment and any conflictual situation. Judgment:, Poor. Insight:, Poor. Orientation: 3. Recent and remote memory: Intact. Attention span and concentration:. Poor. Language: Above. Fund of knowledge:. Full. Mood: Labile. Affect:, Changeable. DIAGNOSES: 1. Cyclothymic disorder. 2., Personality disorder. 3.P)TSD. ASSESSMENT: Patient has not been able to demonstrate any control over her outbursts for even half a day. Prognosis poor for placement MANAGEMENT PLAN: On the waiting list for placement continued to try to get patient to show some self-control. TIME SPENT:, 30 minutes. Vital Signs Vital Signs Date Time Temp Pulse Resp B/P (MAP) Pulse Ox O2 Delivery O2 Flow Rate FiO2 09/06/20 17:21 98.7 89 20 144/86 (105) 09/05/20 06:54 100 Room Air Current Medications Current Medications Medications (Trade) Dose Ordered Sig/Brielle Route PRN Reason Start Time Stop Time Status Last Admin Dose Admin Acetaminophen (Tylenol Tab) 650 mg Q6HP PRN PO HEADACHE or DISCOMFORT 08/24/20 19:15 09/06/20 06:13 Al Hydrox/Mg Hydrox/Simethicone (Mylanta) 30 ml Q4HP PRN PO HEARTBURN/INDIGESTION 08/24/20 19:15 09/06/20 14:25 Aripiprazole (AbiLIFY) 10 mg BID PO 08/29/20 09:00 09/07/20 06:57 DC 09/06/20 20:12 Aripiprazole (AbiLIFY) 10 mg TID PO 09/07/20 09:00 09/07/20 09:04 Cefdinir (Omnicef) 300 mg BID PO 08/26/20 21:00 09/03/20 13:13 DC 09/03/20 08:39 Cetirizine HCl (ZyrTEC) 10 mg DAILY PO 09/01/20 09:00 09/07/20 09:02 Chlorpromazine HCl (Thorazine) 25 mg BID PO 08/25/20 21:00 08/29/20 09:28 DC 08/28/20 20:16 Chlorpromazine HCl (Thorazine) 25 mg TID PRN PO anxiety/agitation 08/25/20 17:45 08/27/20 20:40 Chlorpromazine HCl (Thorazine) 50 mg STAT STAT IM 08/25/20 23:13 08/25/20 23:17 DC 08/25/20 23:26 Chlorpromazine HCl (Thorazine) 50 mg STAT STAT IM 08/26/20 21:32 08/26/20 21:34 DC 08/26/20 21:51 Chlorpromazine HCl (Thorazine) 100 mg BID PO 08/25/20 21:00 08/29/20 09:28 DC 08/28/20 20:16 Diphenhydramine HCl (Benadryl) 50 mg STAT STAT IM 08/27/20 22:08 08/27/20 22:13 DC 08/27/20 22:24 Diphenhydramine HCl (Benadryl) 50 mg STAT STAT IM 08/27/20 23:04 08/27/20 23:09 DC 08/27/20 23:14 Diphenhydramine HCl (Benadryl) 50 mg STAT STAT IV 08/27/20 23:00 08/27/20 23:09 DC Haloperidol (Haldol) 5 mg STAT STAT IM 08/27/20 23:00 08/27/20 23:03 DC 08/27/20 23:14 Haloperidol (Haldol) 10 mg STAT STAT IM 08/27/20 22:08 08/27/20 22:13 DC 08/27/20 22:25 Home Med (Med Rec Complete!) ASDIRECTED XX 08/24/20 20:00 08/24/20 19:54 DC Hydroxyzine HCl (Atarax) 25 mg TID PO 09/05/20 16:00 09/07/20 06:57 DC 09/06/20 08:08 Hydroxyzine HCl (Atarax) 50 mg TID PO 09/07/20 09:00 09/07/20 09:04 Ibuprofen (Advil) 600 mg Q8HP PRN PO PAIN 08/26/20 19:00 09/06/20 13:45 Lorazepam (Ativan) 1 mg STAT STAT IM 08/25/20 23:13 08/25/20 23:17 DC 08/25/20 23:26 Lorazepam (Ativan) 1 mg STAT STAT IM 08/26/20 21:32 08/26/20 21:34 DC 08/26/20 21:51 Lorazepam (Ativan) 2 mg STAT STAT IM 08/27/20 22:08 08/27/20 22:13 DC 08/27/20 22:24 Lorazepam (Ativan) 2 mg STAT STAT IM 08/27/20 23:04 08/27/20 23:09 DC 08/27/20 23:14 Lorazepam (Ativan) 2 mg STAT STAT IV 08/27/20 23:00 08/27/20 23:09 DC Magnesium Hydroxide (Milk Of Magnesia) 30 ml DAILYPRN PRN PO CONSTIPATION 08/24/20 19:15 Topiramate (TopAMAX) 200 mg BID PO 08/25/20 21:00 09/07/20 09:03 Trazodone HCl (Desyrel) 50 mg QHSP PRN PO INSOMNIA 08/24/20 19:15 08/31/20 21:59 Allergies Coded Allergies: haloperidol (Verified Adverse Reaction, Intermediate, EPIJAW, 01/03/20) Has required & received this med many time without EPS noted risperidone (Verified Adverse Reaction, Mild, PSORIASIS, 11/26/19) REBECA MAHONEY MD Sep 07, 2020 09:23
[2020-09-07] MEDS: ACETAMINOPHEN TAB 650MG DOSE (2X325MG) PO PRN (15:15)
[2020-09-07 16:34] VITALS: BP 122/64
[2020-09-08] MEDS: ACETAMINOPHEN TAB 650MG DOSE (2X325MG) PO PRN ×2 (05:36→12:08)
[2020-09-08 06:00] VITALS: BP 149/80
--- NOTE | 2020-09-08 08:21 | MHIPNPDOC ---
[facility] Progress Note Progress Note DATE OF SERVICE: 09/08/20 HISTORY: 19-year-old numerous admissions numerous placements, explosive, irritable, aggressive. VITAL SIGNS: See below. NEW TEST RESULTS: None. CURRENT MEDICATIONS: See below. MENTAL STATUS EXAMINATION: Patient is a 19-year old female, who is behaving on the unit without explosiven ess conflict or aggression. Second day in a row. Speech: Is, normal. Language skills are unremarkable. Thought processes including: In good mood and has not had any explosiveness si nce night before last. Thought content:, More reasonable. Abstract reasoning, and computation: Able to Abstract. Description of associations: No loose association. Description of abnormal or psychotic thoughts: No psychotic thought Judgment: Improved as of yesterday. Insight:. Very limited. Orientation: 3. Recent and remote memory: Intact. Attention span and concentration: Intact. Language:. No disturbance. Fund of knowledge: Reasonable. Mood: Improved. Affect:, Congruent. DIAGNOSES: 1. Atypical mood disorder. 2., Conduct and borderline traits. 3. None. ASSESSMENT: 2 days of improved control over her emotions MANAGEMENT PLAN: Continue medications. Continue behavioral management. TIME SPENT:, 30 minutes. Vital Signs Vital Signs Date Time Temp Pulse Resp B/P (MAP) Pulse Ox O2 Delivery O2 Flow Rate FiO2 09/07/20 16:34 98.1 92 20 122/64 (83) 09/05/20 06:54 100 Room Air Current Medications Current Medications Medications (Trade) Dose Ordered Sig/Brielle Route PRN Reason Start Time Stop Time Status Last Admin Dose Admin Acetaminophen (Tylenol Tab) 650 mg Q6HP PRN PO HEADACHE or DISCOMFORT 08/24/20 19:15 09/08/20 05:36 Al Hydrox/Mg Hydrox/Simethicone (Mylanta) 30 ml Q4HP PRN PO HEARTBURN/INDIGESTION 08/24/20 19:15 09/06/20 14:25 Aripiprazole (AbiLIFY) 10 mg BID PO 08/29/20 09:00 09/07/20 06:57 DC 09/06/20 20:12 Aripiprazole (AbiLIFY) 10 mg TID PO 09/07/20 09:00 09/07/20 21:18 Cefdinir (Omnicef) 300 mg BID PO 08/26/20 21:00 09/03/20 13:13 DC 09/03/20 08:39 Cetirizine HCl (ZyrTEC) 10 mg DAILY PO 09/01/20 09:00 09/07/20 09:02 Chlorpromazine HCl (Thorazine) 25 mg BID PO 08/25/20 21:00 08/29/20 09:28 DC 08/28/20 20:16 Chlorpromazine HCl (Thorazine) 25 mg TID PRN PO anxiety/agitation 08/25/20 17:45 08/27/20 20:40 Chlorpromazine HCl (Thorazine) 50 mg STAT STAT IM 08/25/20 23:13 08/25/20 23:17 DC 08/25/20 23:26 Chlorpromazine HCl (Thorazine) 50 mg STAT STAT IM 08/26/20 21:32 08/26/20 21:34 DC 08/26/20 21:51 Chlorpromazine HCl (Thorazine) 100 mg BID PO 08/25/20 21:00 08/29/20 09:28 DC 08/28/20 20:16 Diphenhydramine HCl (Benadryl) 50 mg STAT STAT IM 08/27/20 22:08 08/27/20 22:13 DC 08/27/20 22:24 Diphenhydramine HCl (Benadryl) 50 mg STAT STAT IM 08/27/20 23:04 08/27/20 23:09 DC 08/27/20 23:14 Diphenhydramine HCl (Benadryl) 50 mg STAT STAT IV 08/27/20 23:00 08/27/20 23:09 DC Haloperidol (Haldol) 5 mg STAT STAT IM 08/27/20 23:00 08/27/20 23:03 DC 08/27/20 23:14 Haloperidol (Haldol) 10 mg STAT STAT IM 08/27/20 22:08 08/27/20 22:13 DC 08/27/20 22:25 Home Med (Med Rec Complete!) ASDIRECTED XX 08/24/20 20:00 08/24/20 19:54 DC Hydroxyzine HCl (Atarax) 25 mg TID PO 09/05/20 16:00 09/07/20 06:57 DC 09/06/20 08:08 Hydroxyzine HCl (Atarax) 50 mg TID PO 09/07/20 09:00 09/07/20 20:40 Ibuprofen (Advil) 600 mg Q8HP PRN PO PAIN 08/26/20 19:00 09/06/20 13:45 Lorazepam (Ativan) 1 mg STAT STAT IM 08/25/20 23:13 08/25/20 23:17 DC 08/25/20 23:26 Lorazepam (Ativan) 1 mg STAT STAT IM 08/26/20 21:32 08/26/20 21:34 DC 08/26/20 21:51 Lorazepam (Ativan) 2 mg STAT STAT IM 08/27/20 22:08 08/27/20 22:13 DC 08/27/20 22:24 Lorazepam (Ativan) 2 mg STAT STAT IM 08/27/20 23:04 08/27/20 23:09 DC 08/27/20 23:14 Lorazepam (Ativan) 2 mg STAT STAT IV 08/27/20 23:00 08/27/20 23:09 DC Magnesium Hydroxide (Milk Of Magnesia) 30 ml DAILYPRN PRN PO CONSTIPATION 08/24/20 19:15 Topiramate (TopAMAX) 200 mg BID PO 08/25/20 21:00 09/07/20 20:41 Trazodone HCl (Desyrel) 50 mg QHSP PRN PO INSOMNIA 08/24/20 19:15 08/31/20 21:59 Allergies Coded Allergies: haloperidol (Verified Adverse Reaction, Intermediate, LOCKJAW, 01/03/20) Has required & received this med many time without EPS noted risperidone (Verified Adverse Reaction, Mild, PSORIASIS, 11/26/19) REBECA MAHONEY MD Sep 08, 2020 08:21
[2020-09-08] MEDS: ARIPiprazole 10 MG TAB PO SCH ×3 (08:45→20:07)
[2020-09-08] MEDS: hydrOXYzine 50 MG TAB PO SCH ×3 (08:45→20:07)
[2020-09-08] MEDS: CETIRIZINE (ZyrTEC) 10 MG TAB PO SCH (08:45)
[2020-09-08] MEDS: TOPIRAMATE (TopAMAX) 100 MG TAB PO SCH ×2 (08:46→20:08)
--- NOTE | 2020-09-08 12:18 | MHIPNPDOC ---
[facility] Progress Note Progress Note DATE OF SERVICE: 09/04/20 HISTORY: Note from 09/04/2020 19-year-old female awaiting placement. With continued explosiveness and emotional dysregulation. VITAL SIGNS: See below. NEW TEST RESULTS: None. CURRENT MEDICATIONS: See below. MENTAL STATUS EXAMINATION: Patient is a. 19-year old female, who is. Uncooperative, angry and disruptive awaiting interview. Speech: Is. Normal. Language skills are adequate. Thought processes including:. Explosively unable to moderate her emotions Thought content: Discharge and placement. Abstract reasoning, and computation: Minimal. Description of associations:. No loose association. Description of abnormal or psychotic thoughts:. No abnormal or psychotic thought but unable to modulate. Judgment: Poor. Insight:, Poor. Orientation: 3. Recent and remote memory: Intact. Attention span and concentration: Intact. Language: No disturbance. Fund of knowledge: Adequate. Mood: Labile. Affect:, Congruent. DIAGNOSES: 1. Atypical Mood disorder. 2., PTSD. 3.. Developing personality disorder. ASSESSMENT: As above MANAGEMENT PLAN: Concerns whether patient will be able to succeed in placement. TIME SPENT:, 30 minutes. Vital Signs Vital Signs Date Time Temp Pulse Resp B/P (MAP) Pulse Ox O2 Delivery O2 Flow Rate FiO2 09/08/20 06:00 09/05/20 06:54 Room Air Current Medications Current Medications Medications (Trade) Dose Ordered Sig/Brielle Route PRN Reason Start Time Stop Time Status Last Admin Dose Admin Acetaminophen (Tylenol Tab) 650 mg Q6HP PRN PO HEADACHE or DISCOMFORT 08/24/20 19:15 09/08/20 12:08 Al Hydrox/Mg Hydrox/Simethicone (Mylanta) 30 ml Q4HP PRN PO HEARTBURN/INDIGESTION 08/24/20 19:15 09/06/20 14:25 Aripiprazole (AbiLIFY) 10 mg BID PO 08/29/20 09:00 09/07/20 06:57 DC 09/06/20 20:12 Aripiprazole (AbiLIFY) 10 mg TID PO 09/07/20 09:00 09/08/20 08:45 Cefdinir (Omnicef) 300 mg BID PO 08/26/20 21:00 09/03/20 13:13 DC 09/03/20 08:39 Cetirizine HCl (ZyrTEC) 10 mg DAILY PO 09/01/20 09:00 09/08/20 08:45 Chlorpromazine HCl (Thorazine) 25 mg BID PO 08/25/20 21:00 08/29/20 09:28 DC 08/28/20 20:16 Chlorpromazine HCl (Thorazine) 25 mg TID PRN PO anxiety/agitation 08/25/20 17:45 08/27/20 20:40 Chlorpromazine HCl (Thorazine) 50 mg STAT STAT IM 08/25/20 23:13 08/25/20 23:17 DC 08/25/20 23:26 Chlorpromazine HCl (Thorazine) 50 mg STAT STAT IM 08/26/20 21:32 08/26/20 21:34 DC 08/26/20 21:51 Chlorpromazine HCl (Thorazine) 100 mg BID PO 08/25/20 21:00 08/29/20 09:28 DC 08/28/20 20:16 Diphenhydramine HCl (Benadryl) 50 mg STAT STAT IM 08/27/20 22:08 08/27/20 22:13 DC 08/27/20 22:24 Diphenhydramine HCl (Benadryl) 50 mg STAT STAT IM 08/27/20 23:04 08/27/20 23:09 DC 08/27/20 23:14 Diphenhydramine HCl (Benadryl) 50 mg STAT STAT IV 08/27/20 23:00 08/27/20 23:09 DC Haloperidol (Haldol) 5 mg STAT STAT IM 08/27/20 23:00 08/27/20 23:03 DC 08/27/20 23:14 Haloperidol (Haldol) 10 mg STAT STAT IM 08/27/20 22:08 08/27/20 22:13 DC 08/27/20 22:25 Home Med (Med Rec Complete!) ASDIRECTED XX 08/24/20 20:00 08/24/20 19:54 DC Hydroxyzine HCl (Atarax) 25 mg TID PO 09/05/20 16:00 09/07/20 06:57 DC 09/06/20 08:08 Hydroxyzine HCl (Atarax) 50 mg TID PO 09/07/20 09:00 09/08/20 08:45 Ibuprofen (Advil) 600 mg Q8HP PRN PO PAIN 08/26/20 19:00 09/06/20 13:45 Lorazepam (Ativan) 1 mg STAT STAT IM 08/25/20 23:13 08/25/20 23:17 DC 08/25/20 23:26 Lorazepam (Ativan) 1 mg STAT STAT IM 08/26/20 21:32 08/26/20 21:34 DC 08/26/20 21:51 Lorazepam (Ativan) 2 mg STAT STAT IM 08/27/20 22:08 08/27/20 22:13 DC 08/27/20 22:24 Lorazepam (Ativan) 2 mg STAT STAT IM 08/27/20 23:04 08/27/20 23:09 DC 08/27/20 23:14 Lorazepam (Ativan) 2 mg STAT STAT IV 08/27/20 23:00 08/27/20 23:09 DC Magnesium Hydroxide (Milk Of Magnesia) 30 ml DAILYPRN PRN PO CONSTIPATION 08/24/20 19:15 Topiramate (TopAMAX) 200 mg BID PO 08/25/20 21:00 09/08/20 08:46 Trazodone HCl (Desyrel) 50 mg QHSP PRN PO INSOMNIA 08/24/20 19:15 08/31/20 21:59 Allergies Coded Allergies: haloperidol (Verified Adverse Reaction, Intermediate, LOCKJAW, 01/03/20) Has required & received this med many time without EPS noted risperidone (Verified Adverse Reaction, Mild, PSORIASIS, 11/26/19) REBECA MAHONEY MD Sep 08, 2020 12:18
[2020-09-08] MEDS: chlorproMAZINE 25 MG TABLET PO PRN (21:39)
[2020-09-08] MEDS: MAALOX 30 ML SUSP *UDC PO PRN (23:02)
[2020-09-09] MEDS: hydrOXYzine 50 MG TAB PO SCH ×3 (10:04→20:56)
[2020-09-09] MEDS: CETIRIZINE (ZyrTEC) 10 MG TAB PO SCH (10:04)
[2020-09-09] MEDS: TOPIRAMATE (TopAMAX) 100 MG TAB PO SCH ×2 (10:04→20:55)
[2020-09-09] MEDS: ARIPiprazole 10 MG TAB PO SCH ×3 (10:04→20:56)
[2020-09-09] MEDS: MAALOX 30 ML SUSP *UDC PO PRN ×2 (12:52→19:46)
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
[2020-09-09] MEDS: ACETAMINOPHEN TAB 650MG DOSE (2X325MG) PO PRN (14:15)
[2020-09-09] MEDS: chlorproMAZINE 25 MG TABLET PO PRN (14:27)
[2020-09-09 16:17] VITALS: BP 133/70
[2020-09-10] MEDS: CETIRIZINE (ZyrTEC) 10 MG TAB PO SCH (09:49)
[2020-09-10] MEDS: hydrOXYzine 50 MG TAB PO SCH ×3 (09:49→21:23)
[2020-09-10] MEDS: TOPIRAMATE (TopAMAX) 100 MG TAB PO SCH ×2 (09:49→21:23)
[2020-09-10] MEDS: ARIPiprazole 10 MG TAB PO SCH ×3 (09:50→21:23)
[2020-09-10] MEDS: chlorproMAZINE 25 MG TABLET PO PRN (13:04)
--- NOTE | 2020-09-10 13:04 | MHIPNPDOC ---
[facility] Progress Note Progress Note DATE OF SERVICE: 09/10/20 HISTORY: 19-year-old female. Numerous placements, emotional dysregulation, presently well-behaved and in good mood. Awaiting continued more interviews for placement. No difficulties with medication. Decreased anxiety. VITAL SIGNS: See below. NEW TEST RESULTS: None. CURRENT MEDICATIONS: See below. MENTAL STATUS EXAMINATION: Patient is a 19-year old female, who is improved in mood and behavior. Speech: Is normal. Language skills are intact. Thought processes including: Looking forward to discharge. Thought content: As above. Abstract reasoning, and computation:. Poor abstract reasoning. Description of associations:, No loose association. Description of abnormal or psychotic thoughts:. No present psychotic thought. Judgment: Improved. Insight: Very limited. Orientation: 3. Recent and remote memory: Intact. Attention span and concentration: Intact. Language:. No disturbance. Fund of knowledge: full. Mood: Good. Affect: Bright. DIAGNOSES: 1. Cyclothymic disorder. 2., Borderline personality traits. 3., PTSD. ASSESSMENT:, As above MANAGEMENT PLAN:. Awaiting placement. No change in meds. TIME SPENT: 35 minutes. Vital Signs Vital Signs Date Time Temp Pulse Resp B/P (MAP) Pulse Ox O2 Delivery O2 Flow Rate FiO2 09/09/20 16:17 97.7 84 18 133/70 (91) 94 Room Air Current Medications Current Medications Medications (Trade) Dose Ordered Sig/Brielle Route PRN Reason Start Time Stop Time Status Last Admin Dose Admin Acetaminophen (Tylenol Tab) 650 mg Q6HP PRN PO HEADACHE or DISCOMFORT 08/24/20 19:15 09/09/20 14:15 Al Hydrox/Mg Hydrox/Simethicone (Mylanta) 30 ml Q4HP PRN PO HEARTBURN/INDIGESTION 08/24/20 19:15 09/09/20 19:46 Aripiprazole (AbiLIFY) 10 mg BID PO 08/29/20 09:00 09/07/20 06:57 DC 09/06/20 20:12 Aripiprazole (AbiLIFY) 10 mg TID PO 09/07/20 09:00 09/10/20 09:50 Cefdinir (Omnicef) 300 mg BID PO 08/26/20 21:00 09/03/20 13:13 DC 09/03/20 08:39 Cetirizine HCl (ZyrTEC) 10 mg DAILY PO 09/01/20 09:00 09/10/20 09:49 Chlorpromazine HCl (Thorazine) 25 mg BID PO 08/25/20 21:00 08/29/20 09:28 DC 08/28/20 20:16 Chlorpromazine HCl (Thorazine) 25 mg TID PRN PO anxiety/agitation 08/25/20 17:45 09/09/20 14:27 Chlorpromazine HCl (Thorazine) 50 mg STAT STAT IM 08/25/20 23:13 08/25/20 23:17 DC 08/25/20 23:26 Chlorpromazine HCl (Thorazine) 50 mg STAT STAT IM 08/26/20 21:32 08/26/20 21:34 DC 08/26/20 21:51 Chlorpromazine HCl (Thorazine) 100 mg BID PO 08/25/20 21:00 08/29/20 09:28 DC 08/28/20 20:16 Diphenhydramine HCl (Benadryl) 50 mg STAT STAT IM 08/27/20 22:08 08/27/20 22:13 DC 08/27/20 22:24 Diphenhydramine HCl (Benadryl) 50 mg STAT STAT IM 08/27/20 23:04 08/27/20 23:09 DC 08/27/20 23:14 Diphenhydramine HCl (Benadryl) 50 mg STAT STAT IV 08/27/20 23:00 08/27/20 23:09 DC Haloperidol (Haldol) 5 mg STAT STAT IM 08/27/20 23:00 08/27/20 23:03 DC 08/27/20 23:14 Haloperidol (Haldol) 10 mg STAT STAT IM 08/27/20 22:08 08/27/20 22:13 DC 08/27/20 22:25 Home Med (Med Rec Complete!) ASDIRECTED XX 08/24/20 20:00 08/24/20 19:54 DC Hydroxyzine HCl (Atarax) 25 mg TID PO 09/05/20 16:00 09/07/20 06:57 DC 09/06/20 08:08 Hydroxyzine HCl (Atarax) 50 mg TID PO 09/07/20 09:00 09/10/20 09:49 Ibuprofen (Advil) 600 mg Q8HP PRN PO PAIN 08/26/20 19:00 09/06/20 13:45 Lorazepam (Ativan) 1 mg STAT STAT IM 08/25/20 23:13 08/25/20 23:17 DC 08/25/20 23:26 Lorazepam (Ativan) 1 mg STAT STAT IM 08/26/20 21:32 08/26/20 21:34 DC 08/26/20 21:51 Lorazepam (Ativan) 2 mg STAT STAT IM 08/27/20 22:08 08/27/20 22:13 DC 08/27/20 22:24 Lorazepam (Ativan) 2 mg STAT STAT IM 08/27/20 23:04 08/27/20 23:09 DC 08/27/20 23:14 Lorazepam (Ativan) 2 mg STAT STAT IV 08/27/20 23:00 08/27/20 23:09 DC Magnesium Hydroxide (Milk Of Magnesia) 30 ml DAILYPRN PRN PO CONSTIPATION 08/24/20 19:15 Topiramate (TopAMAX) 200 mg BID PO 08/25/20 21:00 09/10/20 09:49 Trazodone HCl (Desyrel) 50 mg QHSP PRN PO INSOMNIA 08/24/20 19:15 08/31/20 21:59 Allergies Coded Allergies: haloperidol (Verified Adverse Reaction, Intermediate, LOCKJAW, 01/03/20) Has required & received this med many time without EPS noted risperidone (Verified Adverse Reaction, Mild, PSORIASIS, 11/26/19) REBECA MAHONEY MD Sep 10, 2020 13:04
[2020-09-10 16:41] VITALS: BP 132/76
[2020-09-11 06:21] VITALS: BP 161/75
[2020-09-11] MEDS: hydrOXYzine 50 MG TAB PO SCH ×3 (09:00→19:47)
[2020-09-11] MEDS: ARIPiprazole 10 MG TAB PO SCH ×3 (09:00→19:46)
[2020-09-11] MEDS: TOPIRAMATE (TopAMAX) 100 MG TAB PO SCH ×3 (09:00→19:46)
[2020-09-11] MEDS: CETIRIZINE (ZyrTEC) 10 MG TAB PO SCH ×2 (09:00→11:36)
[2020-09-11] MEDS ORDERED: PILL CUTTER 1 EACH XX PRN (10:30)
--- NOTE | 2020-09-11 13:18 | MHIPNPDOC ---
[facility] Progress Note Progress Note DATE OF SERVICE: 09/11/20 HISTORY: 19-year-old with numerous placements with explosive temper tantrums and poor problem solving skills. For 4 days. She has been well behaved and in good mood, but as of last night, she began again throwing tantrums, and locking herself in her room. I am increasing Vistaril to decrease anxiety VITAL SIGNS: See below. NEW TEST RESULTS:. none CURRENT MEDICATIONS: See below. MENTAL STATUS EXAMINATION: Patient is a-year old female, who is 19 years old with significant inability to manage any type of conflict with severe anxiety and numerous past placement failures. Speech: Is. No gross disturbance. Language skills no gross disturbance. Thought processes including: Inability to spend time with people, severe a nxiety. Thought content:. As above. Abstract reasoning, and computation: [place]. Description of associations:. No loose association. Description of abnormal or psychotic thoughts:. No psychotic thought. Judgment: Poor. Insight: Poor. Orientation: 3. Recent and remote memory: Intact. Attention span and concentration: Intact. Language:. No gross disturbance. Fund of knowledge: Reasonable. Mood: Labile. Affect: Variable. DIAGNOSES: 1. Anxiety. 2., Personality disorder. 3. None. ASSESSMENT: As above MANAGEMENT PLAN: Prognosis poor for placement, but placement efforts still being made. TIME SPENT: 45 minutes. Vital Signs Vital Signs Date Time Temp Pulse Resp B/P (MAP) Pulse Ox O2 Delivery O2 Flow Rate FiO2 09/11/20 06:21 97.5 113 18 161/75 (103) 100 Room Air Current Medications Current Medications Medications (Trade) Dose Ordered Sig/Brielle Route PRN Reason Start Time Stop Time Status Last Admin Dose Admin Acetaminophen (Tylenol Tab) 650 mg Q6HP PRN PO HEADACHE or DISCOMFORT 08/24/20 19:15 09/09/20 14:15 Al Hydrox/Mg Hydrox/Simethicone (Mylanta) 30 ml Q4HP PRN PO HEARTBURN/INDIGESTION 08/24/20 19:15 09/09/20 19:46 Aripiprazole (AbiLIFY) 10 mg BID PO 08/29/20 09:00 09/07/20 06:57 DC 09/06/20 20:12 Aripiprazole (AbiLIFY) 10 mg TID PO 09/07/20 09:00 09/10/20 21:23 Cefdinir (Omnicef) 300 mg BID PO 08/26/20 21:00 09/03/20 13:13 DC 09/03/20 08:39 Cetirizine HCl (ZyrTEC) 10 mg DAILY PO 09/01/20 09:00 09/11/20 11:36 Chlorpromazine HCl (Thorazine) 25 mg BID PO 08/25/20 21:00 08/29/20 09:28 DC 08/28/20 20:16 Chlorpromazine HCl (Thorazine) 25 mg TID PRN PO anxiety/agitation 08/25/20 17:45 09/10/20 13:04 Chlorpromazine HCl (Thorazine) 50 mg STAT STAT IM 08/25/20 23:13 08/25/20 23:17 DC 08/25/20 23:26 Chlorpromazine HCl (Thorazine) 50 mg STAT STAT IM 08/26/20 21:32 08/26/20 21:34 DC 08/26/20 21:51 Chlorpromazine HCl (Thorazine) 100 mg BID PO 08/25/20 21:00 08/29/20 09:28 DC 08/28/20 20:16 Diphenhydramine HCl (Benadryl) 50 mg STAT STAT IM 08/27/20 22:08 08/27/20 22:13 DC 08/27/20 22:24 Diphenhydramine HCl (Benadryl) 50 mg STAT STAT IM 08/27/20 23:04 08/27/20 23:09 DC 08/27/20 23:14 Diphenhydramine HCl (Benadryl) 50 mg STAT STAT IV 08/27/20 23:00 08/27/20 23:09 DC Haloperidol (Haldol) 5 mg STAT STAT IM 08/27/20 23:00 08/27/20 23:03 DC 08/27/20 23:14 Haloperidol (Haldol) 10 mg STAT STAT IM 08/27/20 22:08 08/27/20 22:13 DC 08/27/20 22:25 Home Med (Med Rec Complete!) ASDIRECTED XX 08/24/20 20:00 08/24/20 19:54 DC Hydroxyzine HCl (Atarax) 25 mg TID PO 09/05/20 16:00 09/07/20 06:57 DC 09/06/20 08:08 Hydroxyzine HCl (Atarax) 50 mg TID PO 09/07/20 09:00 09/11/20 10:26 DC 09/10/20 21:23 Hydroxyzine HCl (Atarax) 75 mg TID PO 09/11/20 16:00 Ibuprofen (Advil) 600 mg Q8HP PRN PO PAIN 08/26/20 19:00 09/06/20 13:45 Lorazepam (Ativan) 1 mg STAT STAT IM 08/25/20 23:13 08/25/20 23:17 DC 08/25/20 23:26 Lorazepam (Ativan) 1 mg STAT STAT IM 08/26/20 21:32 08/26/20 21:34 DC 08/26/20 21:51 Lorazepam (Ativan) 2 mg STAT STAT IM 08/27/20 22:08 08/27/20 22:13 DC 08/27/20 22:24 Lorazepam (Ativan) 2 mg STAT STAT IM 08/27/20 23:04 08/27/20 23:09 DC 08/27/20 23:14 Lorazepam (Ativan) 2 mg STAT STAT IV 08/27/20 23:00 08/27/20 23:09 DC Magnesium Hydroxide (Milk Of Magnesia) 30 ml DAILYPRN PRN PO CONSTIPATION 08/24/20 19:15 Topiramate (TopAMAX) 200 mg BID PO 08/25/20 21:00 09/11/20 11:36 Trazodone HCl (Desyrel) 50 mg QHSP PRN PO INSOMNIA 08/24/20 19:15 08/31/20 21:59 Allergies Coded Allergies: haloperidol (Verified Adverse Reaction, Intermediate, LOCKJAW, 01/03/20) Has required & received this med many time without EPS noted risperidone (Verified Adverse Reaction, Mild, PSORIASIS, 11/26/19) REBECA MAHONEY MD Sep 11, 2020 13:18
[2020-09-11] MEDS: chlorproMAZINE 25 MG TABLET PO PRN (21:24)
[2020-09-11] MEDS ORDERED: ChlorproMAZINE 100 MG TABLET PO ONE (21:40)
--- NOTE | 2020-09-12 08:13 | MHIPNPDOC ---
[facility] Progress Note Progress Note DATE OF SERVICE: 09/12/20 HISTORY: 19-year-old explosive mood unstable patient with poor to no relationship skills and inability to handle any conflictual situation or any situation where patient doesn't get what she asks for permission. Has been on Zyprexa and Depakote before, and I will start her again and try to see if I can achieve therapeutic doses, Abilify has been ineffective. We had 3-4 days. When patient was well behaved and in good mood, but they have disappeared. VITAL SIGNS: See below. NEW TEST RESULTS: None CURRENT MEDICATIONS: See below. MENTAL STATUS EXAMINATION: Patient is a. 19-year old female, who is. Disruptive explosive uncooperative. Speech: Is normal. Language skills are. No gross disturbance. Thought processes including: Continually changes. Patient is awaiting interviews for placements which have been extremely difficult to get an or fear is will fail based on patient's behavior. Thought content: Not getting her way. Abstract reasoning, and computation:. Poor abstraction. Description of associations:. No loose associations. Description of abnormal or psychotic thoughts: Thinking is abnormal and the patient is unable to control her moods or her behavior, but no psychosis is noted. Judgment: Poor Insight: Poor. Orientation: 3. Recent and remote memory:, Apparently intact. Attention span and concentration: Poor. Attention span. Language:. No gross disturbance. Fund of knowledge: Limited. Mood: Labile. Affect:, Congruent with lability. DIAGNOSES: 1. Cyclothymic disorder. 2., Personality disorder. 3. None. ASSESSMENT: As above MANAGEMENT PLAN:. Plan to change patient to Depakote and Zyprexa and achieve some type of therapeutic improvement. Abilify has failed. TIME SPENT: 35 minutes. Vital Signs Vital Signs Date Time Temp Pulse Resp B/P (MAP) Pulse Ox O2 Delivery O2 Flow Rate FiO2 09/11/20 06:21 97.5 113 18 161/75 (103) 100 Room Air Current Medications Current Medications Medications (Trade) Dose Ordered Sig/Brielle Route PRN Reason Start Time Stop Time Status Last Admin Dose Admin Acetaminophen (Tylenol Tab) 650 mg Q6HP PRN PO HEADACHE or DISCOMFORT 08/24/20 19:15 09/09/20 14:15 Al Hydrox/Mg Hydrox/Simethicone (Mylanta) 30 ml Q4HP PRN PO HEARTBURN/INDIGESTION 08/24/20 19:15 09/09/20 19:46 Aripiprazole (AbiLIFY) 10 mg BID PO 08/29/20 09:00 09/07/20 06:57 DC 09/06/20 20:12 Aripiprazole (AbiLIFY) 10 mg TID PO 09/07/20 09:00 09/11/20 19:46 Cefdinir (Omnicef) 300 mg BID PO 08/26/20 21:00 09/03/20 13:13 DC 09/03/20 08:39 Cetirizine HCl (ZyrTEC) 10 mg DAILY PO 09/01/20 09:00 09/11/20 11:36 Chlorpromazine HCl (Thorazine) 25 mg BID PO 08/25/20 21:00 08/29/20 09:28 DC 08/28/20 20:16 Chlorpromazine HCl (Thorazine) 25 mg TID PRN PO anxiety/agitation 08/25/20 17:45 09/11/20 21:24 Chlorpromazine HCl (Thorazine) 50 mg STAT STAT IM 08/25/20 23:13 08/25/20 23:17 DC 08/25/20 23:26 Chlorpromazine HCl (Thorazine) 50 mg STAT STAT IM 08/26/20 21:32 08/26/20 21:34 DC 08/26/20 21:51 Chlorpromazine HCl (Thorazine) 100 mg BID PO 08/25/20 21:00 08/29/20 09:28 DC 08/28/20 20:16 Diphenhydramine HCl (Benadryl) 50 mg STAT STAT IM 08/27/20 22:08 08/27/20 22:13 DC 08/27/20 22:24 Diphenhydramine HCl (Benadryl) 50 mg STAT STAT IM 08/27/20 23:04 08/27/20 23:09 DC 08/27/20 23:14 Diphenhydramine HCl (Benadryl) 50 mg STAT STAT IV 08/27/20 23:00 08/27/20 23:09 DC Haloperidol (Haldol) 5 mg STAT STAT IM 08/27/20 23:00 08/27/20 23:03 DC 08/27/20 23:14 Haloperidol (Haldol) 10 mg STAT STAT IM 08/27/20 22:08 08/27/20 22:13 DC 08/27/20 22:25 Home Med (Med Rec Complete!) ASDIRECTED XX 08/24/20 20:00 08/24/20 19:54 DC Hydroxyzine HCl (Atarax) 25 mg TID PO 09/05/20 16:00 09/07/20 06:57 DC 09/06/20 08:08 Hydroxyzine HCl (Atarax) 50 mg TID PO 09/07/20 09:00 09/11/20 10:26 DC 09/10/20 21:23 Hydroxyzine HCl (Atarax) 75 mg TID PO 09/11/20 16:00 09/11/20 19:47 Ibuprofen (Advil) 600 mg Q8HP PRN PO PAIN 08/26/20 19:00 09/06/20 13:45 Lorazepam (Ativan) 1 mg STAT STAT IM 08/25/20 23:13 08/25/20 23:17 DC 08/25/20 23:26 Lorazepam (Ativan) 1 mg STAT STAT IM 08/26/20 21:32 08/26/20 21:34 DC 08/26/20 21:51 Lorazepam (Ativan) 2 mg STAT STAT IM 08/27/20 22:08 08/27/20 22:13 DC 08/27/20 22:24 Lorazepam (Ativan) 2 mg STAT STAT IM 08/27/20 23:04 08/27/20 23:09 DC 08/27/20 23:14 Lorazepam (Ativan) 2 mg STAT STAT IV 08/27/20 23:00 08/27/20 23:09 DC Magnesium Hydroxide (Milk Of Magnesia) 30 ml DAILYPRN PRN PO CONSTIPATION 08/24/20 19:15 Topiramate (TopAMAX) 200 mg BID PO 08/25/20 21:00 09/11/20 19:46 Trazodone HCl (Desyrel) 50 mg QHSP PRN PO INSOMNIA 08/24/20 19:15 08/31/20 21:59 Allergies Coded Allergies: haloperidol (Verified Adverse Reaction, Intermediate, NEGRITA, 01/03/20) Has required & received this med many time without EPS noted risperidone (Verified Adverse Reaction, Mild, PSORIASIS, 11/26/19) REBECA MAHONEY MD Sep 12, 2020 08:13
[2020-09-12] MEDS: OLANZapine 10 MG TAB PO SCH ×3 (09:00→20:38)
[2020-09-12] MEDS: ARIPiprazole 10 MG TAB PO SCH ×3 (09:00→20:21)
[2020-09-12] MEDS: TOPIRAMATE (TopAMAX) 100 MG TAB PO SCH ×2 (09:00→20:22)
[2020-09-12] MEDS ORDERED: OLANZapine 2.5MG TABLET PO SCH (09:00)
[2020-09-12] MEDS: DIVALPROEX 250 MG TAB PO SCH ×3 (09:00→20:39)
[2020-09-12] MEDS: hydrOXYzine 50 MG TAB PO SCH ×3 (09:00→20:21)
[2020-09-12] MEDS: CETIRIZINE (ZyrTEC) 10 MG TAB PO SCH (09:00)
[2020-09-12 17:10] VITALS: BP 137/65
[2020-09-12] MEDS: ACETAMINOPHEN TAB 650MG DOSE (2X325MG) PO PRN (19:19)
[2020-09-12] MEDS: chlorproMAZINE 25 MG TABLET PO PRN (21:33)
[2020-09-12] MEDS: IBUPROFEN 600MG TAB PO PRN (23:04)
[2020-09-13] MEDS ORDERED: hydrOXYzine 25 MG TAB PO SCH (09:00)
[2020-09-13] MEDS: hydrOXYzine 25 MG TAB PO SCH ×2 (11:23→22:01)
[2020-09-13] MEDS: OLANZapine 10 MG TAB PO SCH ×2 (11:23→22:01)
[2020-09-13] MEDS: CETIRIZINE (ZyrTEC) 10 MG TAB PO SCH (11:23)
[2020-09-13] MEDS: DIVALPROEX 250 MG TAB PO SCH (11:24)
[2020-09-13] MEDS: TOPIRAMATE (TopAMAX) 100 MG TAB PO SCH ×2 (11:24→22:04)
--- NOTE | 2020-09-13 12:00 | MHIPNPDOC ---
[facility] Progress Note Progress Note DATE OF SERVICE: 09/13/20 HISTORY: 19-year-old with numerous outbursts numerous placements, personality disorder, with significant management problems. Patient today asked if her 3 farheen es a day doses could be reduced to twice a day VITAL SIGNS: See below. NEW TEST RESULTS:, None. CURRENT MEDICATIONS: See below. MENTAL STATUS EXAMINATION: Patient is a 19-year old female, who is. Presently, pleasant. Speech: Is, normal. Language skills are presently. Today normal. Thought processes including: Mostly concerned with requests that she makes and how she is being treated. Thought content: As above. Abstract reasoning, and computation:, Poor. Description of associations:, No loose association. Description of abnormal or psychotic thoughts:. No present psychotic thought. Judgment: Poor. Insight:, Poor. Orientation: 3. Recent and remote memory: Intact. Attention span and concentration: Intact. Language: No disturbance. Fund of knowledge: Reasonable. Mood: Euthymic. At the moment. Affect:, Pleasant at the moment. DIAGNOSES: 1. Cyclothymia. 2. Personality disorder. 3., PTSD. ASSESSMENT: As above MANAGEMENT PLAN:. Waiting for placement. TIME SPENT: 35 minutes. Vital Signs Vital Signs Date Time Temp Pulse Resp B/P (MAP) Pulse Ox O2 Delivery O2 Flow Rate FiO2 09/12/20 17:10 97.3 63 20 137/65 (89) 09/11/20 06:21 100 Room Air Current Medications Current Medications Medications (Trade) Dose Ordered Sig/Brielle Route PRN Reason Start Time Stop Time Status Last Admin Dose Admin Acetaminophen (Tylenol Tab) 650 mg Q6HP PRN PO HEADACHE or DISCOMFORT 08/24/20 19:15 09/12/20 19:19 Al Hydrox/Mg Hydrox/Simethicone (Mylanta) 30 ml Q4HP PRN PO HEARTBURN/INDIGESTION 08/24/20 19:15 09/09/20 19:46 Aripiprazole (AbiLIFY) 10 mg BID PO 08/29/20 09:00 09/07/20 06:57 DC 09/06/20 20:12 Aripiprazole (AbiLIFY) 10 mg TID PO 09/07/20 09:00 09/13/20 11:15 DC 09/12/20 20:21 Cefdinir (Omnicef) 300 mg BID PO 08/26/20 21:00 09/03/20 13:13 DC 09/03/20 08:39 Cetirizine HCl (ZyrTEC) 10 mg DAILY PO 09/01/20 09:00 09/11/20 11:36 Chlorpromazine HCl (Thorazine) 25 mg BID PO 08/25/20 21:00 08/29/20 09:28 DC 08/28/20 20:16 Chlorpromazine HCl (Thorazine) 25 mg TID PRN PO anxiety/agitation 08/25/20 17:45 09/12/20 21:33 Chlorpromazine HCl (Thorazine) 50 mg STAT STAT IM 08/25/20 23:13 08/25/20 23:17 DC 08/25/20 23:26 Chlorpromazine HCl (Thorazine) 50 mg STAT STAT IM 08/26/20 21:32 08/26/20 21:34 DC 08/26/20 21:51 Chlorpromazine HCl (Thorazine) 100 mg BID PO 08/25/20 21:00 08/29/20 09:28 DC 08/28/20 20:16 Diphenhydramine HCl (Benadryl) 50 mg STAT STAT IM 08/27/20 22:08 08/27/20 22:13 DC 08/27/20 22:24 Diphenhydramine HCl (Benadryl) 50 mg STAT STAT IM 08/27/20 23:04 08/27/20 23:09 DC 08/27/20 23:14 Diphenhydramine HCl (Benadryl) 50 mg STAT STAT IV 08/27/20 23:00 08/27/20 23:09 DC Divalproex Sodium (Depakote) 250 mg BID PO 09/12/20 09:00 09/12/20 20:39 Haloperidol (Haldol) 5 mg STAT STAT IM 08/27/20 23:00 08/27/20 23:03 DC 08/27/20 23:14 Haloperidol (Haldol) 10 mg STAT STAT IM 08/27/20 22:08 08/27/20 22:13 DC 08/27/20 22:25 Home Med (Med Rec Complete!) ASDIRECTED XX 08/24/20 20:00 08/24/20 19:54 DC Hydroxyzine HCl (Atarax) 25 mg TID PO 09/05/20 16:00 09/07/20 06:57 DC 09/06/20 08:08 Hydroxyzine HCl (Atarax) 50 mg TID PO 09/07/20 09:00 09/11/20 10:26 DC 09/10/20 21:23 Hydroxyzine HCl (Atarax) 75 mg BID PO 09/13/20 09:00 Hydroxyzine HCl (Atarax) 75 mg TID PO 09/11/20 16:00 09/13/20 11:11 DC 09/12/20 20:21 Hydroxyzine HCl (Atarax) 75 mg TID PO 09/13/20 09:00 09/13/20 11:16 DC Ibuprofen (Advil) 600 mg Q8HP PRN PO PAIN 08/26/20 19:00 09/12/20 23:04 Lorazepam (Ativan) 1 mg STAT STAT IM 08/25/20 23:13 08/25/20 23:17 DC 08/25/20 23:26 Lorazepam (Ativan) 1 mg STAT STAT IM 08/26/20 21:32 08/26/20 21:34 DC 08/26/20 21:51 Lorazepam (Ativan) 2 mg STAT STAT IM 08/27/20 22:08 08/27/20 22:13 DC 08/27/20 22:24 Lorazepam (Ativan) 2 mg STAT STAT IM 08/27/20 23:04 08/27/20 23:09 DC 08/27/20 23:14 Lorazepam (Ativan) 2 mg STAT STAT IV 08/27/20 23:00 08/27/20 23:09 DC Magnesium Hydroxide (Milk Of Magnesia) 30 ml DAILYPRN PRN PO CONSTIPATION 08/24/20 19:15 Olanzapine (ZyPREXA) 7.5 mg BID PO 09/12/20 09:00 09/12/20 08:05 DC Olanzapine (ZyPREXA) 10 mg BID PO 09/12/20 09:00 09/12/20 20:38 Topiramate (TopAMAX) 200 mg BID PO 08/25/20 21:00 09/12/20 20:22 Trazodone HCl (Desyrel) 50 mg QHSP PRN PO INSOMNIA 08/24/20 19:15 08/31/20 21:59 Allergies Coded Allergies: haloperidol (Verified Adverse Reaction, Intermediate, LOCKJAW, 01/03/20) Has required & received this med many time without EPS noted risperidone (Verified Adverse Reaction, Mild, PSORIASIS, 11/26/19) REBECA MAHONEY MD Sep 13, 2020 12:00
[2020-09-13] MEDS: ACETAMINOPHEN TAB 650MG DOSE (2X325MG) PO PRN (14:18)
[2020-09-13 16:37] VITALS: BP 134/75
[2020-09-13] MEDS: DIVALPROEX 500 MG TAB PO SCH (22:02)
[2020-09-14] MEDS: TOPIRAMATE (TopAMAX) 100 MG TAB PO SCH (08:03)
[2020-09-14] MEDS: hydrOXYzine 25 MG TAB PO SCH (08:03)
[2020-09-14] MEDS: OLANZapine 10 MG TAB PO SCH (08:03)
[2020-09-14] MEDS: DIVALPROEX 250 MG TAB PO SCH (08:04)
[2020-09-14] MEDS: CETIRIZINE (ZyrTEC) 10 MG TAB PO SCH (08:04)
[2020-09-14] MEDS: ACETAMINOPHEN TAB 650MG DOSE (2X325MG) PO PRN (15:43)
[2020-09-14] MEDS: IBUPROFEN 600MG TAB PO PRN (19:42)
[2020-09-15] MEDS: hydrOXYzine 25 MG TAB PO SCH ×3 (00:42→21:23)
[2020-09-15] MEDS: OLANZapine 10 MG TAB PO SCH ×3 (00:42→21:23)
[2020-09-15] MEDS: TOPIRAMATE (TopAMAX) 100 MG TAB PO SCH ×3 (00:42→21:24)
[2020-09-15] MEDS: ACETAMINOPHEN TAB 650MG DOSE (2X325MG) PO PRN ×2 (00:42→22:58)
[2020-09-15] MEDS: DIVALPROEX 500 MG TAB PO SCH ×2 (00:43→21:24)
[2020-09-15] MEDS: CETIRIZINE (ZyrTEC) 10 MG TAB PO SCH (07:40)
[2020-09-15] MEDS: DIVALPROEX 250 MG TAB PO SCH (07:41)
[2020-09-15] MEDS: chlorproMAZINE 25 MG TABLET PO PRN (19:27)
[2020-09-16] MEDS: DIVALPROEX 250 MG TAB PO SCH (07:36)
[2020-09-16] MEDS: OLANZapine 10 MG TAB PO SCH ×2 (07:36→21:06)
[2020-09-16] MEDS: hydrOXYzine 25 MG TAB PO SCH ×2 (07:36→21:05)
[2020-09-16] MEDS: CETIRIZINE (ZyrTEC) 10 MG TAB PO SCH (07:36)
[2020-09-16] MEDS: TOPIRAMATE (TopAMAX) 100 MG TAB PO SCH ×2 (07:37→21:06)
--- NOTE | 2020-09-16 14:14 | MHIPNPDOC ---
[facility] Progress Note Progress Note DATE OF SERVICE: 09/16/20 HISTORY: 19-year-old female, long history of admissions and failed placement. Behavioral issues and emotional dysregulation have dominated her case. VITAL SIGNS: See below. NEW TEST RESULTS: None. CURRENT MEDICATIONS: See below. MENTAL STATUS EXAMINATION: Patient is a. 19-year old female, who is. Behaving reasonably well today and during the weekend. Speech: Is. No gross disturbance. Language skills are. No gross disturbance. Thought processes including:. No gross disturbance. Thought content: Generally concerned with her privileges and conflict with staff. Abstract reasoning, and computation:. Poor abstract reasoning. Description of associations:, No loose association. Description of abnormal or psychotic thoughts:. No psychotic thought. Judgment: Poor. Insight:, Very limited. Orientation: 3. Recent and remote memory: Intact. Attention span and concentration: no disturbance. Language:. No gross disturbance. Fund of knowledge: Reasonable. Mood: Euthymic. Affect:, Congruent. DIAGNOSES: 1. Cyclothymic disorder. 2..Borderline Personality traits. . ASSESSMENT: As above MANAGEMENT PLAN:. Continue behavioral management. Continue use of mood stabilizers. TIME SPENT: 35 minutes. Vital Signs Vital Signs Date Time Temp Pulse Resp B/P (MAP) Pulse Ox O2 Delivery O2 Flow Rate FiO2 09/13/20 16:37 97.5 88 18 134/75 (94) 96 Room Air Current Medications Current Medications Medications (Trade) Dose Ordered Sig/Brielle Route PRN Reason Start Time Stop Time Status Last Admin Dose Admin Acetaminophen (Tylenol Tab) 650 mg Q6HP PRN PO HEADACHE or DISCOMFORT 08/24/20 19:15 09/15/20 22:58 Al Hydrox/Mg Hydrox/Simethicone (Mylanta) 30 ml Q4HP PRN PO HEARTBURN/INDIGESTION 08/24/20 19:15 09/09/20 19:46 Aripiprazole (AbiLIFY) 10 mg BID PO 08/29/20 09:00 09/07/20 06:57 DC 09/06/20 20:12 Aripiprazole (AbiLIFY) 10 mg TID PO 09/07/20 09:00 09/13/20 11:15 DC 09/12/20 20:21 Cefdinir (Omnicef) 300 mg BID PO 08/26/20 21:00 09/03/20 13:13 DC 09/03/20 08:39 Cetirizine HCl (ZyrTEC) 10 mg DAILY PO 09/01/20 09:00 09/16/20 07:36 Chlorpromazine HCl (Thorazine) 25 mg BID PO 08/25/20 21:00 08/29/20 09:28 DC 08/28/20 20:16 Chlorpromazine HCl (Thorazine) 25 mg TID PRN PO anxiety/agitation 08/25/20 17:45 09/15/20 19:27 Chlorpromazine HCl (Thorazine) 50 mg STAT STAT IM 08/25/20 23:13 08/25/20 23:17 DC 08/25/20 23:26 Chlorpromazine HCl (Thorazine) 50 mg STAT STAT IM 08/26/20 21:32 08/26/20 21:34 DC 08/26/20 21:51 Chlorpromazine HCl (Thorazine) 100 mg BID PO 08/25/20 21:00 08/29/20 09:28 DC 08/28/20 20:16 Diphenhydramine HCl (Benadryl) 50 mg STAT STAT IM 08/27/20 22:08 08/27/20 22:13 DC 08/27/20 22:24 Diphenhydramine HCl (Benadryl) 50 mg STAT STAT IM 08/27/20 23:04 08/27/20 23:09 DC 08/27/20 23:14 Diphenhydramine HCl (Benadryl) 50 mg STAT STAT IV 08/27/20 23:00 08/27/20 23:09 DC Divalproex Sodium (Depakote) 250 mg BID PO 09/12/20 09:00 09/13/20 12:00 DC 09/13/20 11:24 Divalproex Sodium (Depakote) 250 mg DAILY PO 09/14/20 09:00 09/16/20 07:36 Divalproex Sodium (Depakote) 500 mg QHS PO 09/13/20 21:00 09/15/20 21:24 Haloperidol (Haldol) 5 mg STAT STAT IM 08/27/20 23:00 08/27/20 23:03 DC 08/27/20 23:14 Haloperidol (Haldol) 10 mg STAT STAT IM 08/27/20 22:08 08/27/20 22:13 DC 08/27/20 22:25 Home Med (Med Rec Complete!) ASDIRECTED XX 08/24/20 20:00 08/24/20 19:54 DC Hydroxyzine HCl (Atarax) 25 mg TID PO 09/05/20 16:00 09/07/20 06:57 DC 09/06/20 08:08 Hydroxyzine HCl (Atarax) 50 mg TID PO 09/07/20 09:00 09/11/20 10:26 DC 09/10/20 21:23 Hydroxyzine HCl (Atarax) 75 mg BID PO 09/13/20 09:00 09/16/20 07:36 Hydroxyzine HCl (Atarax) 75 mg TID PO 09/11/20 16:00 09/13/20 11:11 DC 09/12/20 20:21 Hydroxyzine HCl (Atarax) 75 mg TID PO 09/13/20 09:00 09/13/20 11:16 DC Ibuprofen (Advil) 600 mg Q8HP PRN PO PAIN 08/26/20 19:00 09/14/20 19:42 Lorazepam (Ativan) 1 mg STAT STAT IM 08/25/20 23:13 08/25/20 23:17 DC 08/25/20 23:26 Lorazepam (Ativan) 1 mg STAT STAT IM 08/26/20 21:32 08/26/20 21:34 DC 08/26/20 21:51 Lorazepam (Ativan) 2 mg STAT STAT IM 08/27/20 22:08 08/27/20 22:13 DC 08/27/20 22:24 Lorazepam (Ativan) 2 mg STAT STAT IM 08/27/20 23:04 08/27/20 23:09 DC 08/27/20 23:14 Lorazepam (Ativan) 2 mg STAT STAT IV 08/27/20 23:00 08/27/20 23:09 DC Magnesium Hydroxide (Milk Of Magnesia) 30 ml DAILYPRN PRN PO CONSTIPATION 08/24/20 19:15 Olanzapine (ZyPREXA) 7.5 mg BID PO 09/12/20 09:00 09/12/20 08:05 DC Olanzapine (ZyPREXA) 10 mg BID PO 09/12/20 09:00 09/16/20 07:36 Topiramate (TopAMAX) 200 mg BID PO 08/25/20 21:00 09/16/20 07:37 Trazodone HCl (Desyrel) 50 mg QHSP PRN PO INSOMNIA 08/24/20 19:15 08/31/20 21:59 Allergies Coded Allergies: haloperidol (Verified Adverse Reaction, Intermediate, LOCKJAW, 01/03/20) Has required & received this med many time without EPS noted risperidone (Verified Adverse Reaction, Mild, PSORIASIS, 11/26/19) REBECA MAHONEY MD Sep 16, 2020 14:14
[2020-09-16] MEDS: DIVALPROEX 500 MG TAB PO SCH (21:06)
[2020-09-17] MEDS: OLANZapine 10 MG TAB PO SCH ×2 (09:26→20:31)
[2020-09-17] MEDS: CETIRIZINE (ZyrTEC) 10 MG TAB PO SCH (09:26)
[2020-09-17] MEDS: hydrOXYzine 25 MG TAB PO SCH ×2 (09:26→20:31)
[2020-09-17] MEDS: DIVALPROEX 250 MG TAB PO SCH (09:26)
[2020-09-17] MEDS: TOPIRAMATE (TopAMAX) 100 MG TAB PO SCH ×2 (09:26→20:31)
--- NOTE | 2020-09-17 11:48 | MHIPNPDOC ---
[facility] Progress Note Progress Note DATE OF SERVICE: 09/17/20 HISTORY: 19-year-old female, numerous admissions numerous discharges numerous placements. Placed a small mask cord around her neck last night and then went to sleep VITAL SIGNS: See below. NEW TEST RESULTS: None. CURRENT MEDICATIONS: See below. MENTAL STATUS EXAMINATION: Patient is a. 19-year old female, who is. Reasonably calm with no explosive episodes. Speech: Is, normal. Language skills are. No gross disturbance. Thought processes including:. No gross disturbance. Thought content: Continued focus on placement interviews. Abstract reasoning, and computation: Poor. Abstraction. Description of associations:. No loose associations. Description of abnormal or psychotic thoughts:. No psychotic thought. Judgment: Poor. Insight:, Poor. Orientation: 3. Recent and remote memory: Intact. Attention span and concentration: Intact. Language: No gross disturbance. Fund of knowledge: Reasonable. Mood:,Calm. Affect: Congruent. DIAGNOSES: 1. Cyclothymic disorder. 2.. Borderline personality traits . . ASSESSMENT: Continue patient on mood stabilizers and neuroleptics in attempt to get her to calm her outbursts MANAGEMENT PLAN: As above. TIME SPENT: 35 minutes. Vital Signs Vital Signs Date Time Temp Pulse Resp B/P (MAP) Pulse Ox O2 Delivery O2 Flow Rate FiO2 09/13/20 16:37 97.5 88 18 134/75 (94) 96 Room Air Current Medications Current Medications Medications (Trade) Dose Ordered Sig/Brielle Route PRN Reason Start Time Stop Time Status Last Admin Dose Admin Acetaminophen (Tylenol Tab) 650 mg Q6HP PRN PO HEADACHE or DISCOMFORT 08/24/20 19:15 09/15/20 22:58 Al Hydrox/Mg Hydrox/Simethicone (Mylanta) 30 ml Q4HP PRN PO HEARTBURN/INDIGESTION 08/24/20 19:15 09/09/20 19:46 Aripiprazole (AbiLIFY) 10 mg BID PO 08/29/20 09:00 09/07/20 06:57 DC 09/06/20 20:12 Aripiprazole (AbiLIFY) 10 mg TID PO 09/07/20 09:00 09/13/20 11:15 DC 09/12/20 20:21 Cefdinir (Omnicef) 300 mg BID PO 08/26/20 21:00 09/03/20 13:13 DC 09/03/20 08:39 Cetirizine HCl (ZyrTEC) 10 mg DAILY PO 09/01/20 09:00 09/17/20 09:26 Chlorpromazine HCl (Thorazine) 25 mg BID PO 08/25/20 21:00 08/29/20 09:28 DC 08/28/20 20:16 Chlorpromazine HCl (Thorazine) 25 mg TID PRN PO anxiety/agitation 08/25/20 17:45 09/15/20 19:27 Chlorpromazine HCl (Thorazine) 50 mg STAT STAT IM 08/25/20 23:13 08/25/20 23:17 DC 08/25/20 23:26 Chlorpromazine HCl (Thorazine) 50 mg STAT STAT IM 08/26/20 21:32 08/26/20 21:34 DC 08/26/20 21:51 Chlorpromazine HCl (Thorazine) 100 mg BID PO 08/25/20 21:00 08/29/20 09:28 DC 08/28/20 20:16 Diphenhydramine HCl (Benadryl) 50 mg STAT STAT IM 08/27/20 22:08 08/27/20 22:13 DC 08/27/20 22:24 Diphenhydramine HCl (Benadryl) 50 mg STAT STAT IM 08/27/20 23:04 08/27/20 23:09 DC 08/27/20 23:14 Diphenhydramine HCl (Benadryl) 50 mg STAT STAT IV 08/27/20 23:00 08/27/20 23:09 DC Divalproex Sodium (Depakote) 250 mg BID PO 09/12/20 09:00 09/13/20 12:00 DC 09/13/20 11:24 Divalproex Sodium (Depakote) 250 mg DAILY PO 09/14/20 09:00 09/17/20 09:26 Divalproex Sodium (Depakote) 500 mg QHS PO 09/13/20 21:00 09/16/20 21:06 Haloperidol (Haldol) 5 mg STAT STAT IM 08/27/20 23:00 08/27/20 23:03 DC 08/27/20 23:14 Haloperidol (Haldol) 10 mg STAT STAT IM 08/27/20 22:08 08/27/20 22:13 DC 08/27/20 22:25 Home Med (Med Rec Complete!) ASDIRECTED XX 08/24/20 20:00 08/24/20 19:54 DC Hydroxyzine HCl (Atarax) 25 mg TID PO 09/05/20 16:00 09/07/20 06:57 DC 09/06/20 08:08 Hydroxyzine HCl (Atarax) 50 mg TID PO 09/07/20 09:00 09/11/20 10:26 DC 09/10/20 21:23 Hydroxyzine HCl (Atarax) 75 mg BID PO 09/13/20 09:00 09/17/20 09:26 Hydroxyzine HCl (Atarax) 75 mg TID PO 09/11/20 16:00 09/13/20 11:11 DC 09/12/20 20:21 Hydroxyzine HCl (Atarax) 75 mg TID PO 09/13/20 09:00 09/13/20 11:16 DC Ibuprofen (Advil) 600 mg Q8HP PRN PO PAIN 08/26/20 19:00 09/14/20 19:42 Lorazepam (Ativan) 1 mg STAT STAT IM 08/25/20 23:13 08/25/20 23:17 DC 08/25/20 23:26 Lorazepam (Ativan) 1 mg STAT STAT IM 08/26/20 21:32 08/26/20 21:34 DC 08/26/20 21:51 Lorazepam (Ativan) 2 mg STAT STAT IM 08/27/20 22:08 08/27/20 22:13 DC 08/27/20 22:24 Lorazepam (Ativan) 2 mg STAT STAT IM 08/27/20 23:04 08/27/20 23:09 DC 08/27/20 23:14 Lorazepam (Ativan) 2 mg STAT STAT IV 08/27/20 23:00 08/27/20 23:09 DC Magnesium Hydroxide (Milk Of Magnesia) 30 ml DAILYPRN PRN PO CONSTIPATION 08/24/20 19:15 Olanzapine (ZyPREXA) 7.5 mg BID PO 09/12/20 09:00 09/12/20 08:05 DC Olanzapine (ZyPREXA) 10 mg BID PO 09/12/20 09:00 09/17/20 09:26 Topiramate (TopAMAX) 200 mg BID PO 08/25/20 21:00 09/17/20 09:26 Trazodone HCl (Desyrel) 50 mg QHSP PRN PO INSOMNIA 08/24/20 19:15 08/31/20 21:59 Allergies Coded Allergies: haloperidol (Verified Adverse Reaction, Intermediate, LOCKJAW, 01/03/20) Has required & received this med many time without EPS noted risperidone (Verified Adverse Reaction, Mild, PSORIASIS, 11/26/19) REBECA MAHONEY MD Sep 17, 2020 11:48
[2020-09-17 17:48] VITALS: BP 132/64
[2020-09-17] MEDS: ACETAMINOPHEN TAB 650MG DOSE (2X325MG) PO PRN (17:54)
[2020-09-17] MEDS: DIVALPROEX 500 MG TAB PO SCH (20:31)
[2020-09-18] MEDS: OLANZapine 10 MG TAB PO SCH ×2 (10:14→20:40)
[2020-09-18] MEDS: CETIRIZINE (ZyrTEC) 10 MG TAB PO SCH (10:14)
[2020-09-18] MEDS: DIVALPROEX 250 MG TAB PO SCH (10:14)
[2020-09-18] MEDS: TOPIRAMATE (TopAMAX) 100 MG TAB PO SCH ×2 (10:14→20:40)
[2020-09-18] MEDS: hydrOXYzine 25 MG TAB PO SCH ×2 (10:15→20:40)
--- NOTE | 2020-09-18 16:07 | MHIPNPDOC ---
[facility] Progress Note Progress Note DATE OF SERVICE: 09/18/20 HISTORY: Apparently misbehaved last night. It was not reported to me we are waiting for her placement. She is having no significant side effects to medication and her outbursts have decreased. VITAL SIGNS: See below. NEW TEST RESULTS: We will get Depakote level. CURRENT MEDICATIONS: See below. MENTAL STATUS EXAMINATION: Patient is a 19-year old female, who is, admitted after numerous admissions and placements failures. Speech: Is. No gross disturbance. Language skills are. No gross disturbance. Thought processes including:. No gross disturbance. Thought content:. No gross disturbance. Abstract reasoning, and computation: Poor. Abstraction poor. Reasoning. Description of associations: No loose associations. Description of abnormal or psychotic thoughts: Abnormal only in her inability to control her emotions and and to engage in rational thinking. Judgment:, Poor. Insight:, Poor. Orientation: 3. Recent and remote memory: Intact. Attention span and concentration: Intact. Language:. No gross disturbance. Fund of knowledge: Reasonable. Mood: Variable. Affect:, Generally bright. DIAGNOSES: 1. Conduct disorder, personality disorder. 2., Cyclothymic disorder. 3. None. ASSESSMENT: As above MANAGEMENT PLAN:, Awaiting placement. Prognosis continues guarded. TIME SPENT: 35 minutes. Vital Signs Vital Signs Date Time Temp Pulse Resp B/P (MAP) Pulse Ox O2 Delivery O2 Flow Rate FiO2 09/17/20 17:48 98.4 76 18 132/64 (86) 09/13/20 16:37 96 Room Air Current Medications Current Medications Medications (Trade) Dose Ordered Sig/Brielle Route PRN Reason Start Time Stop Time Status Last Admin Dose Admin Acetaminophen (Tylenol Tab) 650 mg Q6HP PRN PO HEADACHE or DISCOMFORT 08/24/20 19:15 09/17/20 17:54 Al Hydrox/Mg Hydrox/Simethicone (Mylanta) 30 ml Q4HP PRN PO HEARTBURN/INDIGESTION 08/24/20 19:15 09/09/20 19:46 Aripiprazole (AbiLIFY) 10 mg BID PO 08/29/20 09:00 09/07/20 06:57 DC 09/06/20 20:12 Aripiprazole (AbiLIFY) 10 mg TID PO 09/07/20 09:00 09/13/20 11:15 DC 09/12/20 20:21 Cefdinir (Omnicef) 300 mg BID PO 08/26/20 21:00 09/03/20 13:13 DC 09/03/20 08:39 Cetirizine HCl (ZyrTEC) 10 mg DAILY PO 09/01/20 09:00 09/18/20 10:14 Chlorpromazine HCl (Thorazine) 25 mg BID PO 08/25/20 21:00 08/29/20 09:28 DC 08/28/20 20:16 Chlorpromazine HCl (Thorazine) 25 mg TID PRN PO anxiety/agitation 08/25/20 17:45 09/15/20 19:27 Chlorpromazine HCl (Thorazine) 50 mg STAT STAT IM 08/25/20 23:13 08/25/20 23:17 DC 08/25/20 23:26 Chlorpromazine HCl (Thorazine) 50 mg STAT STAT IM 08/26/20 21:32 08/26/20 21:34 DC 08/26/20 21:51 Chlorpromazine HCl (Thorazine) 100 mg BID PO 08/25/20 21:00 08/29/20 09:28 DC 08/28/20 20:16 Diphenhydramine HCl (Benadryl) 50 mg STAT STAT IM 08/27/20 22:08 08/27/20 22:13 DC 08/27/20 22:24 Diphenhydramine HCl (Benadryl) 50 mg STAT STAT IM 08/27/20 23:04 08/27/20 23:09 DC 08/27/20 23:14 Diphenhydramine HCl (Benadryl) 50 mg STAT STAT IV 08/27/20 23:00 08/27/20 23:09 DC Divalproex Sodium (Depakote) 250 mg BID PO 09/12/20 09:00 09/13/20 12:00 DC 09/13/20 11:24 Divalproex Sodium (Depakote) 250 mg DAILY PO 09/14/20 09:00 09/18/20 10:14 Divalproex Sodium (Depakote) 500 mg QHS PO 09/13/20 21:00 09/17/20 20:31 Haloperidol (Haldol) 5 mg STAT STAT IM 08/27/20 23:00 08/27/20 23:03 DC 08/27/20 23:14 Haloperidol (Haldol) 10 mg STAT STAT IM 08/27/20 22:08 08/27/20 22:13 DC 08/27/20 22:25 Home Med (Med Rec Complete!) ASDIRECTED XX 08/24/20 20:00 08/24/20 19:54 DC Hydroxyzine HCl (Atarax) 25 mg TID PO 09/05/20 16:00 09/07/20 06:57 DC 09/06/20 08:08 Hydroxyzine HCl (Atarax) 50 mg TID PO 09/07/20 09:00 09/11/20 10:26 DC 09/10/20 21:23 Hydroxyzine HCl (Atarax) 75 mg BID PO 09/13/20 09:00 09/18/20 10:15 Hydroxyzine HCl (Atarax) 75 mg TID PO 09/11/20 16:00 09/13/20 11:11 DC 09/12/20 20:21 Hydroxyzine HCl (Atarax) 75 mg TID PO 09/13/20 09:00 09/13/20 11:16 DC Ibuprofen (Advil) 600 mg Q8HP PRN PO PAIN 08/26/20 19:00 09/14/20 19:42 Lorazepam (Ativan) 1 mg STAT STAT IM 08/25/20 23:13 08/25/20 23:17 DC 08/25/20 23:26 Lorazepam (Ativan) 1 mg STAT STAT IM 08/26/20 21:32 08/26/20 21:34 DC 08/26/20 21:51 Lorazepam (Ativan) 2 mg STAT STAT IM 08/27/20 22:08 08/27/20 22:13 DC 08/27/20 22:24 Lorazepam (Ativan) 2 mg STAT STAT IM 08/27/20 23:04 08/27/20 23:09 DC 08/27/20 23:14 Lorazepam (Ativan) 2 mg STAT STAT IV 08/27/20 23:00 08/27/20 23:09 DC Magnesium Hydroxide (Milk Of Magnesia) 30 ml DAILYPRN PRN PO CONSTIPATION 08/24/20 19:15 Olanzapine (ZyPREXA) 7.5 mg BID PO 09/12/20 09:00 09/12/20 08:05 DC Olanzapine (ZyPREXA) 10 mg BID PO 09/12/20 09:00 09/18/20 10:14 Topiramate (TopAMAX) 200 mg BID PO 08/25/20 21:00 09/18/20 10:14 Trazodone HCl (Desyrel) 50 mg QHSP PRN PO INSOMNIA 08/24/20 19:15 08/31/20 21:59 Allergies Coded Allergies: haloperidol (Verified Adverse Reaction, Intermediate, LOCKJAW, 01/03/20) Has required & received this med many time without EPS noted risperidone (Verified Adverse Reaction, Mild, PSORIASIS, 11/26/19) REBECA MAHONEY MD Sep 18, 2020 16:07
[2020-09-18 18:01] VITALS: BP 141/71
[2020-09-18] MEDS: MAALOX 30 ML SUSP *UDC PO PRN (19:21)
[2020-09-18] MEDS: DIVALPROEX 500 MG TAB PO SCH (20:40)
[2020-09-19] MEDS: CETIRIZINE (ZyrTEC) 10 MG TAB PO SCH (08:32)
[2020-09-19] MEDS: hydrOXYzine 25 MG TAB PO SCH ×2 (08:33→20:30)
[2020-09-19] MEDS: TOPIRAMATE (TopAMAX) 100 MG TAB PO SCH ×2 (08:33→20:30)
[2020-09-19] MEDS: DIVALPROEX 250 MG TAB PO SCH (08:33)
[2020-09-19] MEDS: OLANZapine 10 MG TAB PO SCH ×2 (08:34→20:30)
--- NOTE | 2020-09-19 10:27 | MHIPNPDOC ---
[facility] Progress Note Progress Note DATE OF SERVICE: 09/19/20 HISTORY: 19-year-old female, numerous admissions numerous placements numerous living situations consistently failed. VITAL SIGNS: See below. NEW TEST RESULTS: None. CURRENT MEDICATIONS: See below. MENTAL STATUS EXAMINATION: Patient is a. 19-year old female, who is. Anxious to hear about her placement. Speech: Is. No gross disturbance. Language skills are gross disturbance. Thought processes including:. No gross disturbance. Thought content:. No gross disturbance. Abstract reasoning, and computation:. Abstraction is poor. Description of associations:. No loose association. Description of abnormal or psychotic thoughts:. No psychotic thought. Judgment:poor Insight: Poor. Orientation: 3. No disturbance. Recent and remote memory:. No disturbance. Attention span and concentration: No disturbance. Language:no Disturbance. Fund of knowledge: Limited. Mood: Euthymic. Affect:, Congruent. DIAGNOSES: 1. Conduct disorder. 2., Borderline personality traits. 3.. Cyclothymia. ASSESSMENT: As above MANAGEMENT PLAN:. We wait for her placement based on her past history, Prognosis poor. TIME SPENT: 35 minutes. Vital Signs Vital Signs Date Time Temp Pulse Resp B/P (MAP) Pulse Ox O2 Delivery O2 Flow Rate FiO2 09/18/20 18:01 97.6 107 18 141/71 (94) 09/13/20 16:37 96 Room Air Current Medications Current Medications Medications (Trade) Dose Ordered Sig/Brielle Route PRN Reason Start Time Stop Time Status Last Admin Dose Admin Acetaminophen (Tylenol Tab) 650 mg Q6HP PRN PO HEADACHE or DISCOMFORT 08/24/20 19:15 09/17/20 17:54 Al Hydrox/Mg Hydrox/Simethicone (Mylanta) 30 ml Q4HP PRN PO HEARTBURN/INDIGESTION 08/24/20 19:15 09/18/20 19:21 Aripiprazole (AbiLIFY) 10 mg BID PO 08/29/20 09:00 09/07/20 06:57 DC 09/06/20 20:12 Aripiprazole (AbiLIFY) 10 mg TID PO 09/07/20 09:00 09/13/20 11:15 DC 09/12/20 20:21 Cefdinir (Omnicef) 300 mg BID PO 08/26/20 21:00 09/03/20 13:13 DC 09/03/20 08:39 Cetirizine HCl (ZyrTEC) 10 mg DAILY PO 09/01/20 09:00 09/19/20 08:32 Chlorpromazine HCl (Thorazine) 25 mg BID PO 08/25/20 21:00 08/29/20 09:28 DC 08/28/20 20:16 Chlorpromazine HCl (Thorazine) 25 mg TID PRN PO anxiety/agitation 08/25/20 17:45 09/15/20 19:27 Chlorpromazine HCl (Thorazine) 50 mg STAT STAT IM 08/25/20 23:13 08/25/20 23:17 DC 08/25/20 23:26 Chlorpromazine HCl (Thorazine) 50 mg STAT STAT IM 08/26/20 21:32 08/26/20 21:34 DC 08/26/20 21:51 Chlorpromazine HCl (Thorazine) 100 mg BID PO 08/25/20 21:00 08/29/20 09:28 DC 08/28/20 20:16 Diphenhydramine HCl (Benadryl) 50 mg STAT STAT IM 08/27/20 22:08 08/27/20 22:13 DC 08/27/20 22:24 Diphenhydramine HCl (Benadryl) 50 mg STAT STAT IM 08/27/20 23:04 08/27/20 23:09 DC 08/27/20 23:14 Diphenhydramine HCl (Benadryl) 50 mg STAT STAT IV 08/27/20 23:00 08/27/20 23:09 DC Divalproex Sodium (Depakote) 250 mg BID PO 09/12/20 09:00 09/13/20 12:00 DC 09/13/20 11:24 Divalproex Sodium (Depakote) 250 mg DAILY PO 09/14/20 09:00 09/19/20 08:33 Divalproex Sodium (Depakote) 500 mg QHS PO 09/13/20 21:00 09/18/20 20:40 Haloperidol (Haldol) 5 mg STAT STAT IM 08/27/20 23:00 08/27/20 23:03 DC 08/27/20 23:14 Haloperidol (Haldol) 10 mg STAT STAT IM 08/27/20 22:08 08/27/20 22:13 DC 08/27/20 22:25 Home Med (Med Rec Complete!) ASDIRECTED XX 08/24/20 20:00 08/24/20 19:54 DC Hydroxyzine HCl (Atarax) 25 mg TID PO 09/05/20 16:00 09/07/20 06:57 DC 09/06/20 08:08 Hydroxyzine HCl (Atarax) 50 mg TID PO 09/07/20 09:00 09/11/20 10:26 DC 09/10/20 21:23 Hydroxyzine HCl (Atarax) 75 mg BID PO 09/13/20 09:00 09/19/20 08:33 Hydroxyzine HCl (Atarax) 75 mg TID PO 09/11/20 16:00 09/13/20 11:11 DC 09/12/20 20:21 Hydroxyzine HCl (Atarax) 75 mg TID PO 09/13/20 09:00 09/13/20 11:16 DC Ibuprofen (Advil) 600 mg Q8HP PRN PO PAIN 08/26/20 19:00 09/14/20 19:42 Lorazepam (Ativan) 1 mg STAT STAT IM 08/25/20 23:13 08/25/20 23:17 DC 08/25/20 23:26 Lorazepam (Ativan) 1 mg STAT STAT IM 08/26/20 21:32 08/26/20 21:34 DC 08/26/20 21:51 Lorazepam (Ativan) 2 mg STAT STAT IM 08/27/20 22:08 08/27/20 22:13 DC 08/27/20 22:24 Lorazepam (Ativan) 2 mg STAT STAT IM 08/27/20 23:04 08/27/20 23:09 DC 08/27/20 23:14 Lorazepam (Ativan) 2 mg STAT STAT IV 08/27/20 23:00 08/27/20 23:09 DC Magnesium Hydroxide (Milk Of Magnesia) 30 ml DAILYPRN PRN PO CONSTIPATION 08/24/20 19:15 Olanzapine (ZyPREXA) 7.5 mg BID PO 09/12/20 09:00 09/12/20 08:05 DC Olanzapine (ZyPREXA) 10 mg BID PO 09/12/20 09:00 09/19/20 08:34 Topiramate (TopAMAX) 200 mg BID PO 08/25/20 21:00 09/19/20 08:33 Trazodone HCl (Desyrel) 50 mg QHSP PRN PO INSOMNIA 08/24/20 19:15 08/31/20 21:59 Allergies Coded Allergies: haloperidol (Verified Adverse Reaction, Intermediate, LOCKJAW, 01/03/20) Has required & received this med many time without EPS noted risperidone (Verified Adverse Reaction, Mild, PSORIASIS, 11/26/19) REBECA MAHONEY MD Sep 19, 2020 10:27
[2020-09-19 18:53] VITALS: BP 139/58
[2020-09-19] MEDS: DIVALPROEX 500 MG TAB PO SCH (20:30)
[2020-09-20] MEDS: hydrOXYzine 25 MG TAB PO SCH ×2 (08:30→20:56)
[2020-09-20] MEDS: CETIRIZINE (ZyrTEC) 10 MG TAB PO SCH (08:30)
[2020-09-20] MEDS: TOPIRAMATE (TopAMAX) 100 MG TAB PO SCH ×2 (08:31→20:56)
[2020-09-20] MEDS: DIVALPROEX 250 MG TAB PO SCH (08:31)
[2020-09-20] MEDS: OLANZapine 10 MG TAB PO SCH ×2 (08:31→20:55)
--- NOTE | 2020-09-20 16:27 | MHIPNPDOC ---
[facility] Progress Note Progress Note DATE OF SERVICE: 09/20/20 HISTORY: Behavior continues moderately good. The patient has abused various privileges and intermittently angry about her placement. VITAL SIGNS: See below. NEW TEST RESULTS:. Patient refused Depakote level and also didn't take her medication at certain times. CURRENT MEDICATIONS: See below. MENTAL STATUS EXAMINATION: Patient is a 19-year old female, who is continuing erratic behavior disturbed relationships, explosiveness at times and at times,. Speech: Is no gross disturbed. Language skills are. No gross disturbance. Thought processes including:. No gross disturbance but of course involves splitting. Thought content:. No gross disturbance. Abstract reasoning, and computation:, Poor reasoning. Description of associations: no loose associations. Description of abnormal or psychotic thoughts: Abnormal thinking is only in the patient's inability to be reasonable. Judgment:, Poor. Insight:, Poor. Orientation: 3. Recent and remote memory: Intact. Attention span and concentration:. Poor. Language:. No gross disturbance. Fund of knowledge: Reasonable Mood: Labile. Affect:, Variable. DIAGNOSES: 1. Conduct disorder. 2..Borderline Personality traits. 3. None. ASSESSMENT: As above MANAGEMENT PLAN: Treated patient with Depakote and Zyprexa. Patient takes it intermittently. TIME SPENT: 35 minutes. Vital Signs Vital Signs Date Time Temp Pulse Resp B/P (MAP) Pulse Ox O2 Delivery O2 Flow Rate FiO2 09/19/20 18:53 97.9 75 20 139/58 (85) Current Medications Current Medications Medications (Trade) Dose Ordered Sig/Brielle Route PRN Reason Start Time Stop Time Status Last Admin Dose Admin Acetaminophen (Tylenol Tab) 650 mg Q6HP PRN PO HEADACHE or DISCOMFORT 08/24/20 19:15 09/17/20 17:54 Al Hydrox/Mg Hydrox/Simethicone (Mylanta) 30 ml Q4HP PRN PO HEARTBURN/INDIGESTION 08/24/20 19:15 09/18/20 19:21 Aripiprazole (AbiLIFY) 10 mg BID PO 08/29/20 09:00 09/07/20 06:57 DC 09/06/20 20:12 Aripiprazole (AbiLIFY) 10 mg TID PO 09/07/20 09:00 09/13/20 11:15 DC 09/12/20 20:21 Cefdinir (Omnicef) 300 mg BID PO 08/26/20 21:00 09/03/20 13:13 DC 09/03/20 08:39 Cetirizine HCl (ZyrTEC) 10 mg DAILY PO 09/01/20 09:00 09/20/20 08:30 Chlorpromazine HCl (Thorazine) 25 mg BID PO 08/25/20 21:00 08/29/20 09:28 DC 08/28/20 20:16 Chlorpromazine HCl (Thorazine) 25 mg TID PRN PO anxiety/agitation 08/25/20 17:45 09/15/20 19:27 Chlorpromazine HCl (Thorazine) 50 mg STAT STAT IM 08/25/20 23:13 08/25/20 23:17 DC 08/25/20 23:26 Chlorpromazine HCl (Thorazine) 50 mg STAT STAT IM 08/26/20 21:32 08/26/20 21:34 DC 08/26/20 21:51 Chlorpromazine HCl (Thorazine) 100 mg BID PO 08/25/20 21:00 08/29/20 09:28 DC 08/28/20 20:16 Diphenhydramine HCl (Benadryl) 50 mg STAT STAT IM 08/27/20 22:08 08/27/20 22:13 DC 08/27/20 22:24 Diphenhydramine HCl (Benadryl) 50 mg STAT STAT IM 08/27/20 23:04 08/27/20 23:09 DC 08/27/20 23:14 Diphenhydramine HCl (Benadryl) 50 mg STAT STAT IV 08/27/20 23:00 08/27/20 23:09 DC Divalproex Sodium (Depakote) 250 mg BID PO 09/12/20 09:00 09/13/20 12:00 DC 09/13/20 11:24 Divalproex Sodium (Depakote) 250 mg DAILY PO 09/14/20 09:00 09/20/20 08:31 Divalproex Sodium (Depakote) 500 mg QHS PO 09/13/20 21:00 09/18/20 20:40 Haloperidol (Haldol) 5 mg STAT STAT IM 08/27/20 23:00 08/27/20 23:03 DC 08/27/20 23:14 Haloperidol (Haldol) 10 mg STAT STAT IM 08/27/20 22:08 08/27/20 22:13 DC 08/27/20 22:25 Home Med (Med Rec Complete!) ASDIRECTED XX 08/24/20 20:00 08/24/20 19:54 DC Hydroxyzine HCl (Atarax) 25 mg TID PO 09/05/20 16:00 09/07/20 06:57 DC 09/06/20 08:08 Hydroxyzine HCl (Atarax) 50 mg TID PO 09/07/20 09:00 09/11/20 10:26 DC 09/10/20 21:23 Hydroxyzine HCl (Atarax) 75 mg BID PO 09/13/20 09:00 09/20/20 08:30 Hydroxyzine HCl (Atarax) 75 mg TID PO 09/11/20 16:00 09/13/20 11:11 DC 09/12/20 20:21 Hydroxyzine HCl (Atarax) 75 mg TID PO 09/13/20 09:00 09/13/20 11:16 DC Ibuprofen (Advil) 600 mg Q8HP PRN PO PAIN 08/26/20 19:00 09/14/20 19:42 Lorazepam (Ativan) 1 mg STAT STAT IM 08/25/20 23:13 08/25/20 23:17 DC 08/25/20 23:26 Lorazepam (Ativan) 1 mg STAT STAT IM 08/26/20 21:32 08/26/20 21:34 DC 08/26/20 21:51 Lorazepam (Ativan) 2 mg STAT STAT IM 08/27/20 22:08 08/27/20 22:13 DC 08/27/20 22:24 Lorazepam (Ativan) 2 mg STAT STAT IM 08/27/20 23:04 08/27/20 23:09 DC 08/27/20 23:14 Lorazepam (Ativan) 2 mg STAT STAT IV 08/27/20 23:00 08/27/20 23:09 DC Magnesium Hydroxide (Milk Of Magnesia) 30 ml DAILYPRN PRN PO CONSTIPATION 08/24/20 19:15 Olanzapine (ZyPREXA) 7.5 mg BID PO 09/12/20 09:00 09/12/20 08:05 DC Olanzapine (ZyPREXA) 10 mg BID PO 09/12/20 09:00 09/20/20 08:31 Topiramate (TopAMAX) 200 mg BID PO 08/25/20 21:00 09/20/20 08:31 Trazodone HCl (Desyrel) 50 mg QHSP PRN PO INSOMNIA 08/24/20 19:15 08/31/20 21:59 Allergies Coded Allergies: haloperidol (Verified Adverse Reaction, Intermediate, LOCKJAW, 01/03/20) Has required & received this med many time without EPS noted risperidone (Verified Adverse Reaction, Mild, PSORIASIS, 11/26/19) REBECA MAHONEY MD Sep 20, 2020 16:27
[2020-09-20] MEDS: DIVALPROEX 500 MG TAB PO SCH (20:56)
[2020-09-21] MEDS: MAALOX 30 ML SUSP *UDC PO PRN (05:28)
[2020-09-21] MEDS: hydrOXYzine 25 MG TAB PO SCH ×2 (09:58→21:00)
[2020-09-21] MEDS: CETIRIZINE (ZyrTEC) 10 MG TAB PO SCH (09:58)
[2020-09-21] MEDS: TOPIRAMATE (TopAMAX) 100 MG TAB PO SCH ×2 (09:59→21:00)
[2020-09-21] MEDS: OLANZapine 10 MG TAB PO SCH ×2 (09:59→21:00)
[2020-09-21] MEDS: DIVALPROEX 250 MG TAB PO SCH (10:00)
--- NOTE | 2020-09-21 10:16 | MHIPNPDOC ---
[facility] Progress Note Progress Note DATE OF SERVICE: 09/21/20 HISTORY: 19-year-old with numerous admissions numerous discharges numerous placements. VITAL SIGNS: See below. NEW TEST RESULTS:. Awaiting Depakote level. Patient refused last Depakote level. CURRENT MEDICATIONS: See below. MENTAL STATUS EXAMINATION: Patient is a 19-year old female, who is. Somewhat less disruptive but still making destructive gestures. Speech: Is no gross disturbance. Language skills are. No gross disturbance. Thought processes including: Contradictory lack of accountability. Thought content: Blames others. No reasonable thinking. Abstract reasoning, and computation:, Poor reasoning. Description of associations:. No loose association. Description of abnormal or psychotic thoughts:. Normal thinking in that she lacks reasonable reasoned thinking. Judgment: Poor. Insight:, Poor. Orientation: 3. Recent and remote memory:. Intact. Attention span and concentration: Intact. Language:. No gross disturbance. Fund of knowledge: Reasonable. Mood: Labile. Affect: Variable. DIAGNOSES: 1. Conduct disorder. 2.Borderline. Personality traits. 3.. Cyclothymia. ASSESSMENT: As above MANAGEMENT PLAN:. Waiting placement. Patient will continue on Depakote, though sometimes she refuses doses. TIME SPENT: 30 minutes. Vital Signs Vital Signs Date Time Temp Pulse Resp B/P (MAP) Pulse Ox O2 Delivery O2 Flow Rate FiO2 09/19/20 18:53 97.9 75 20 139/58 (85) Current Medications Current Medications Medications (Trade) Dose Ordered Sig/Brielle Route PRN Reason Start Time Stop Time Status Last Admin Dose Admin Acetaminophen (Tylenol Tab) 650 mg Q6HP PRN PO HEADACHE or DISCOMFORT 08/24/20 19:15 09/17/20 17:54 Al Hydrox/Mg Hydrox/Simethicone (Mylanta) 30 ml Q4HP PRN PO HEARTBURN/INDIGESTION 08/24/20 19:15 09/21/20 05:28 Aripiprazole (AbiLIFY) 10 mg BID PO 08/29/20 09:00 09/07/20 06:57 DC 09/06/20 20:12 Aripiprazole (AbiLIFY) 10 mg TID PO 09/07/20 09:00 09/13/20 11:15 DC 09/12/20 20:21 Cefdinir (Omnicef) 300 mg BID PO 08/26/20 21:00 09/03/20 13:13 DC 09/03/20 08:39 Cetirizine HCl (ZyrTEC) 10 mg DAILY PO 09/01/20 09:00 09/20/20 08:30 Chlorpromazine HCl (Thorazine) 25 mg BID PO 08/25/20 21:00 08/29/20 09:28 DC 08/28/20 20:16 Chlorpromazine HCl (Thorazine) 25 mg TID PRN PO anxiety/agitation 08/25/20 17:45 09/15/20 19:27 Chlorpromazine HCl (Thorazine) 50 mg STAT STAT IM 08/25/20 23:13 08/25/20 23:17 DC 08/25/20 23:26 Chlorpromazine HCl (Thorazine) 50 mg STAT STAT IM 08/26/20 21:32 08/26/20 21:34 DC 08/26/20 21:51 Chlorpromazine HCl (Thorazine) 100 mg BID PO 08/25/20 21:00 08/29/20 09:28 DC 08/28/20 20:16 Diphenhydramine HCl (Benadryl) 50 mg STAT STAT IM 08/27/20 22:08 08/27/20 22:13 DC 08/27/20 22:24 Diphenhydramine HCl (Benadryl) 50 mg STAT STAT IM 08/27/20 23:04 08/27/20 23:09 DC 08/27/20 23:14 Diphenhydramine HCl (Benadryl) 50 mg STAT STAT IV 08/27/20 23:00 08/27/20 23:09 DC Divalproex Sodium (Depakote) 250 mg BID PO 09/12/20 09:00 09/13/20 12:00 DC 09/13/20 11:24 Divalproex Sodium (Depakote) 250 mg DAILY PO 09/14/20 09:00 09/20/20 08:31 Divalproex Sodium (Depakote) 500 mg QHS PO 09/13/20 21:00 09/20/20 20:56 Haloperidol (Haldol) 5 mg STAT STAT IM 08/27/20 23:00 08/27/20 23:03 DC 08/27/20 23:14 Haloperidol (Haldol) 10 mg STAT STAT IM 08/27/20 22:08 08/27/20 22:13 DC 08/27/20 22:25 Home Med (Med Rec Complete!) ASDIRECTED XX 08/24/20 20:00 08/24/20 19:54 DC Hydroxyzine HCl (Atarax) 25 mg TID PO 09/05/20 16:00 09/07/20 06:57 DC 09/06/20 08:08 Hydroxyzine HCl (Atarax) 50 mg TID PO 09/07/20 09:00 09/11/20 10:26 DC 09/10/20 21:23 Hydroxyzine HCl (Atarax) 75 mg BID PO 09/13/20 09:00 09/20/20 20:56 Hydroxyzine HCl (Atarax) 75 mg TID PO 09/11/20 16:00 09/13/20 11:11 DC 09/12/20 20:21 Hydroxyzine HCl (Atarax) 75 mg TID PO 09/13/20 09:00 09/13/20 11:16 DC Ibuprofen (Advil) 600 mg Q8HP PRN PO PAIN 08/26/20 19:00 09/14/20 19:42 Lorazepam (Ativan) 1 mg STAT STAT IM 08/25/20 23:13 08/25/20 23:17 DC 08/25/20 23:26 Lorazepam (Ativan) 1 mg STAT STAT IM 08/26/20 21:32 08/26/20 21:34 DC 08/26/20 21:51 Lorazepam (Ativan) 2 mg STAT STAT IM 08/27/20 22:08 08/27/20 22:13 DC 08/27/20 22:24 Lorazepam (Ativan) 2 mg STAT STAT IM 08/27/20 23:04 08/27/20 23:09 DC 08/27/20 23:14 Lorazepam (Ativan) 2 mg STAT STAT IV 08/27/20 23:00 08/27/20 23:09 DC Magnesium Hydroxide (Milk Of Magnesia) 30 ml DAILYPRN PRN PO CONSTIPATION 08/24/20 19:15 Olanzapine (ZyPREXA) 7.5 mg BID PO 09/12/20 09:00 09/12/20 08:05 DC Olanzapine (ZyPREXA) 10 mg BID PO 09/12/20 09:00 09/20/20 20:55 Topiramate (TopAMAX) 200 mg BID PO 08/25/20 21:00 09/20/20 20:56 Trazodone HCl (Desyrel) 50 mg QHSP PRN PO INSOMNIA 08/24/20 19:15 08/31/20 21:59 Allergies Coded Allergies: haloperidol (Verified Adverse Reaction, Intermediate, LOCKJAW, 01/03/20) Has required & received this med many time without EPS noted risperidone (Verified Adverse Reaction, Mild, PSORIASIS, 11/26/19) REBECA MAHONEY MD Sep 21, 2020 10:16
[2020-09-21] MEDS: DIVALPROEX 500 MG TAB PO SCH (21:00)
[2020-09-21] MEDS: ACETAMINOPHEN TAB 650MG DOSE (2X325MG) PO PRN (21:49)
[2020-09-21] MEDS: IBUPROFEN 600MG TAB PO PRN (23:53)
[2020-09-22 06:00] VITALS: BP 135/74
[2020-09-22] MEDS: TOPIRAMATE (TopAMAX) 100 MG TAB PO SCH ×2 (09:00→20:27)
[2020-09-22] MEDS: hydrOXYzine 25 MG TAB PO SCH ×2 (09:00→20:27)
[2020-09-22] MEDS: DIVALPROEX 250 MG TAB PO SCH (09:00)
[2020-09-22] MEDS: OLANZapine 10 MG TAB PO SCH ×2 (09:00→20:27)
[2020-09-22] MEDS: CETIRIZINE (ZyrTEC) 10 MG TAB PO SCH (09:00)
[2020-09-22] MEDS: IBUPROFEN 600MG TAB PO PRN (17:25)
[2020-09-22 18:07] VITALS: BP 141/82
[2020-09-22] MEDS: DIVALPROEX 500 MG TAB PO SCH (20:27)
[2020-09-22] MEDS: ACETAMINOPHEN TAB 650MG DOSE (2X325MG) PO PRN (21:37)
[2020-09-22] MEDS: MAALOX 30 ML SUSP *UDC PO PRN (21:55)
[2020-09-23] MEDS: OLANZapine 10 MG TAB PO SCH ×2 (09:20→22:16)
[2020-09-23] MEDS: hydrOXYzine 25 MG TAB PO SCH ×2 (09:20→22:16)
[2020-09-23] MEDS: CETIRIZINE (ZyrTEC) 10 MG TAB PO SCH (09:20)
[2020-09-23] MEDS: DIVALPROEX 250 MG TAB PO SCH (09:20)
[2020-09-23] MEDS: TOPIRAMATE (TopAMAX) 100 MG TAB PO SCH ×2 (09:21→22:17)
--- NOTE | 2020-09-23 14:14 | MHIPNPDOC ---
[facility] Progress Note Progress Note DATE OF SERVICE: 09/23/20 HISTORY: 19-year-old female, numerous placements numerous placement failures numerous admissions presently erratically taking her medications and refusing lab tests. Patient making numerous superficial self harm gestures which brings her into conflictual situations with staff. We are awaiting her placement. VITAL SIGNS: See below. NEW TEST RESULTS:. None. CURRENT MEDICATIONS: See below. MENTAL STATUS EXAMINATION: Patient is a 19-year old female, who is. Generally better behaved generally better mood, still makes superficial self-destructive gesture that don't seem very serious, but allow her to get involved in occasional conflicts, which she enjoys. Speech: Is. No gross disturbance. Language skills are. No gross disturbance. Thought processes including:. No gross disturbance. Thought content: Discharge ,her privileges. Abstract reasoning, and computation: Has ambulated abstract but poor reasoning. Description of associations: No loose association. Description of abnormal or psychotic thoughts:. No psychotic thought. Judgment: poor Insight: Limited. Orientation: 3. Recent and remote memory:. Intact. Attention span and concentration: Intact. Language: No gross disturbance. Fund of knowledge: Reasonable. Mood: Euthymic. Affect:, Bright. DIAGNOSES: 1. Borderline personality traits. 2.. Cyclothymia. 3. None. ASSESSMENT: As above MANAGEMENT PLAN:. Continue to encourage medication, which seems to have calmed her temper enormously despite her disagreement and await placement. TIME SPENT:, 30 minutes. Vital Signs Vital Signs Date Time Temp Pulse Resp B/P (MAP) Pulse Ox O2 Delivery O2 Flow Rate FiO2 09/22/20 18:07 97.8 88 16 141/82 (101) 97 Current Medications Current Medications Medications (Trade) Dose Ordered Sig/Brielle Route PRN Reason Start Time Stop Time Status Last Admin Dose Admin Acetaminophen (Tylenol Tab) 650 mg Q6HP PRN PO HEADACHE or DISCOMFORT 08/24/20 19:15 09/22/20 21:37 Al Hydrox/Mg Hydrox/Simethicone (Mylanta) 30 ml Q4HP PRN PO HEARTBURN/INDIGESTION 08/24/20 19:15 09/22/20 21:55 Aripiprazole (AbiLIFY) 10 mg BID PO 08/29/20 09:00 09/07/20 06:57 DC 09/06/20 20:12 Aripiprazole (AbiLIFY) 10 mg TID PO 09/07/20 09:00 09/13/20 11:15 DC 09/12/20 20:21 Cefdinir (Omnicef) 300 mg BID PO 08/26/20 21:00 09/03/20 13:13 DC 09/03/20 08:39 Cetirizine HCl (ZyrTEC) 10 mg DAILY PO 09/01/20 09:00 09/23/20 09:20 Chlorpromazine HCl (Thorazine) 25 mg BID PO 08/25/20 21:00 08/29/20 09:28 DC 08/28/20 20:16 Chlorpromazine HCl (Thorazine) 25 mg TID PRN PO anxiety/agitation 08/25/20 17:45 09/15/20 19:27 Chlorpromazine HCl (Thorazine) 50 mg STAT STAT IM 08/25/20 23:13 08/25/20 23:17 DC 08/25/20 23:26 Chlorpromazine HCl (Thorazine) 50 mg STAT STAT IM 08/26/20 21:32 08/26/20 21:34 DC 08/26/20 21:51 Chlorpromazine HCl (Thorazine) 100 mg BID PO 08/25/20 21:00 08/29/20 09:28 DC 08/28/20 20:16 Diphenhydramine HCl (Benadryl) 50 mg STAT STAT IM 08/27/20 22:08 08/27/20 22:13 DC 08/27/20 22:24 Diphenhydramine HCl (Benadryl) 50 mg STAT STAT IM 08/27/20 23:04 08/27/20 23:09 DC 08/27/20 23:14 Diphenhydramine HCl (Benadryl) 50 mg STAT STAT IV 08/27/20 23:00 08/27/20 23:09 DC Divalproex Sodium (Depakote) 250 mg BID PO 09/12/20 09:00 09/13/20 12:00 DC 09/13/20 11:24 Divalproex Sodium (Depakote) 250 mg DAILY PO 09/14/20 09:00 09/23/20 09:20 Divalproex Sodium (Depakote) 500 mg QHS PO 09/13/20 21:00 09/22/20 20:27 Haloperidol (Haldol) 5 mg STAT STAT IM 08/27/20 23:00 08/27/20 23:03 DC 08/27/20 23:14 Haloperidol (Haldol) 10 mg STAT STAT IM 08/27/20 22:08 08/27/20 22:13 DC 08/27/20 22:25 Home Med (Med Rec Complete!) ASDIRECTED XX 08/24/20 20:00 08/24/20 19:54 DC Hydroxyzine HCl (Atarax) 25 mg TID PO 09/05/20 16:00 09/07/20 06:57 DC 09/06/20 08:08 Hydroxyzine HCl (Atarax) 50 mg TID PO 09/07/20 09:00 09/11/20 10:26 DC 09/10/20 21:23 Hydroxyzine HCl (Atarax) 75 mg BID PO 09/13/20 09:00 09/23/20 09:20 Hydroxyzine HCl (Atarax) 75 mg TID PO 09/11/20 16:00 09/13/20 11:11 DC 09/12/20 20:21 Hydroxyzine HCl (Atarax) 75 mg TID PO 09/13/20 09:00 09/13/20 11:16 DC Ibuprofen (Advil) 600 mg Q8HP PRN PO PAIN 08/26/20 19:00 09/22/20 17:25 Lorazepam (Ativan) 1 mg STAT STAT IM 08/25/20 23:13 08/25/20 23:17 DC 08/25/20 23:26 Lorazepam (Ativan) 1 mg STAT STAT IM 08/26/20 21:32 08/26/20 21:34 DC 08/26/20 21:51 Lorazepam (Ativan) 2 mg STAT STAT IM 08/27/20 22:08 08/27/20 22:13 DC 08/27/20 22:24 Lorazepam (Ativan) 2 mg STAT STAT IM 08/27/20 23:04 08/27/20 23:09 DC 08/27/20 23:14 Lorazepam (Ativan) 2 mg STAT STAT IV 08/27/20 23:00 08/27/20 23:09 DC Magnesium Hydroxide (Milk Of Magnesia) 30 ml DAILYPRN PRN PO CONSTIPATION 08/24/20 19:15 Olanzapine (ZyPREXA) 7.5 mg BID PO 09/12/20 09:00 09/12/20 08:05 DC Olanzapine (ZyPREXA) 10 mg BID PO 09/12/20 09:00 09/23/20 09:20 Topiramate (TopAMAX) 200 mg BID PO 08/25/20 21:00 09/23/20 09:21 Trazodone HCl (Desyrel) 50 mg QHSP PRN PO INSOMNIA 08/24/20 19:15 08/31/20 21:59 Allergies Coded Allergies: haloperidol (Verified Adverse Reaction, Intermediate, LOCKJAW, 01/03/20) Has required & received this med many time without EPS noted risperidone (Verified Adverse Reaction, Mild, PSORIASIS, 11/26/19) REBECA MAHONEY MD Sep 23, 2020 14:14
[2020-09-23] MEDS: DIVALPROEX 500 MG TAB PO SCH (22:16)
[2020-09-24 06:41] VITALS: BP 98/51
[2020-09-24] MEDS: OLANZapine 10 MG TAB PO SCH ×2 (09:00→22:30)
[2020-09-24] MEDS: TOPIRAMATE (TopAMAX) 100 MG TAB PO SCH ×2 (09:00→22:30)
[2020-09-24] MEDS: DIVALPROEX 250 MG TAB PO SCH (09:00)
[2020-09-24] MEDS: hydrOXYzine 25 MG TAB PO SCH ×2 (09:00→22:30)
[2020-09-24] MEDS: CETIRIZINE (ZyrTEC) 10 MG TAB PO SCH (09:00)
--- NOTE | 2020-09-24 15:09 | MHIPNPDOC ---
[facility] Progress Note Progress Note DATE OF SERVICE: 09/24/20 HISTORY: 19-year-old and numerous placements, numerous hospitalizations, numerous placement failures, but behavioral outbursts have diminished significantly. VITAL SIGNS: See below. NEW TEST RESULTS:. Depakote level LXVII.2, patient has not been compliant with all doses. CURRENT MEDICATIONS: See below. MENTAL STATUS EXAMINATION: Patient is a 19-year old female, who is, awaiting placement with occasional sup erficial self-harm gestures. Speech: Is no gross disturbance. Language skills are. No gross disturbance. Thought processes including:, Easily offended easily upset. Thought content:, Waiting for placement. Abstract reasoning, and computation: Able to compute with poor reasoning skills. Description of associations:. No loose association. Description of abnormal or psychotic thoughts: No psychotic thought. Judgment: Poor. Insight:, Limited. Orientation: 3. Recent and remote memory: Intact. Attention span and concentration: Limited. Language:. No disturbance. Fund of knowledge: Reasonable. Mood: Labile. Affect:, Congruent. DIAGNOSES: 1. Cyclothymic disorder. 2. Borderline Personality traits. 3. None. ASSESSMENT: As above MANAGEMENT PLAN:. We continue to wait for placement. TIME SPENT: 20 minutes. Vital Signs Vital Signs Date Time Temp Pulse Resp B/P (MAP) Pulse Ox O2 Delivery O2 Flow Rate FiO2 09/24/20 06:41 96.1 87 18 98/51 (67) 100 Laboratory Data 24H Labs Laboratory Tests 2 09/24/20 06:50: Valproic Acid (Depakene) Level 67.2 Current Medications Current Medications Medications (Trade) Dose Ordered Sig/Brielle Route PRN Reason Start Time Stop Time Status Last Admin Dose Admin Acetaminophen (Tylenol Tab) 650 mg Q6HP PRN PO HEADACHE or DISCOMFORT 08/24/20 19:15 09/22/20 21:37 Al Hydrox/Mg Hydrox/Simethicone (Mylanta) 30 ml Q4HP PRN PO HEARTBURN/INDIGESTION 08/24/20 19:15 09/22/20 21:55 Aripiprazole (AbiLIFY) 10 mg BID PO 08/29/20 09:00 09/07/20 06:57 DC 09/06/20 20:12 Aripiprazole (AbiLIFY) 10 mg TID PO 09/07/20 09:00 09/13/20 11:15 DC 09/12/20 20:21 Cefdinir (Omnicef) 300 mg BID PO 08/26/20 21:00 09/03/20 13:13 DC 09/03/20 08:39 Cetirizine HCl (ZyrTEC) 10 mg DAILY PO 09/01/20 09:00 09/23/20 09:20 Chlorpromazine HCl (Thorazine) 25 mg BID PO 08/25/20 21:00 08/29/20 09:28 DC 08/28/20 20:16 Chlorpromazine HCl (Thorazine) 25 mg TID PRN PO anxiety/agitation 08/25/20 17:45 09/15/20 19:27 Chlorpromazine HCl (Thorazine) 50 mg STAT STAT IM 08/25/20 23:13 08/25/20 23:17 DC 08/25/20 23:26 Chlorpromazine HCl (Thorazine) 50 mg STAT STAT IM 08/26/20 21:32 08/26/20 21:34 DC 08/26/20 21:51 Chlorpromazine HCl (Thorazine) 100 mg BID PO 08/25/20 21:00 08/29/20 09:28 DC 08/28/20 20:16 Diphenhydramine HCl (Benadryl) 50 mg STAT STAT IM 08/27/20 22:08 08/27/20 22:13 DC 08/27/20 22:24 Diphenhydramine HCl (Benadryl) 50 mg STAT STAT IM 08/27/20 23:04 08/27/20 23:09 DC 08/27/20 23:14 Diphenhydramine HCl (Benadryl) 50 mg STAT STAT IV 08/27/20 23:00 08/27/20 23:09 DC Divalproex Sodium (Depakote) 250 mg BID PO 09/12/20 09:00 09/13/20 12:00 DC 09/13/20 11:24 Divalproex Sodium (Depakote) 250 mg DAILY PO 09/14/20 09:00 09/23/20 09:20 Divalproex Sodium (Depakote) 500 mg QHS PO 09/13/20 21:00 09/23/20 22:16 Haloperidol (Haldol) 5 mg STAT STAT IM 08/27/20 23:00 08/27/20 23:03 DC 08/27/20 23:14 Haloperidol (Haldol) 10 mg STAT STAT IM 08/27/20 22:08 08/27/20 22:13 DC 08/27/20 22:25 Home Med (Med Rec Complete!) ASDIRECTED XX 08/24/20 20:00 08/24/20 19:54 DC Hydroxyzine HCl (Atarax) 25 mg TID PO 09/05/20 16:00 09/07/20 06:57 DC 09/06/20 08:08 Hydroxyzine HCl (Atarax) 50 mg TID PO 09/07/20 09:00 09/11/20 10:26 DC 09/10/20 21:23 Hydroxyzine HCl (Atarax) 75 mg BID PO 09/13/20 09:00 09/23/20 22:16 Hydroxyzine HCl (Atarax) 75 mg TID PO 09/11/20 16:00 09/13/20 11:11 DC 09/12/20 20:21 Hydroxyzine HCl (Atarax) 75 mg TID PO 09/13/20 09:00 09/13/20 11:16 DC Ibuprofen (Advil) 600 mg Q8HP PRN PO PAIN 08/26/20 19:00 09/22/20 17:25 Lorazepam (Ativan) 1 mg STAT STAT IM 08/25/20 23:13 08/25/20 23:17 DC 08/25/20 23:26 Lorazepam (Ativan) 1 mg STAT STAT IM 08/26/20 21:32 08/26/20 21:34 DC 08/26/20 21:51 Lorazepam (Ativan) 2 mg STAT STAT IM 08/27/20 22:08 08/27/20 22:13 DC 08/27/20 22:24 Lorazepam (Ativan) 2 mg STAT STAT IM 08/27/20 23:04 08/27/20 23:09 DC 08/27/20 23:14 Lorazepam (Ativan) 2 mg STAT STAT IV 08/27/20 23:00 08/27/20 23:09 DC Magnesium Hydroxide (Milk Of Magnesia) 30 ml DAILYPRN PRN PO CONSTIPATION 08/24/20 19:15 Olanzapine (ZyPREXA) 7.5 mg BID PO 09/12/20 09:00 09/12/20 08:05 DC Olanzapine (ZyPREXA) 10 mg BID PO 09/12/20 09:00 09/23/20 22:16 Topiramate (TopAMAX) 200 mg BID PO 08/25/20 21:00 09/23/20 22:17 Trazodone HCl (Desyrel) 50 mg QHSP PRN PO INSOMNIA 08/24/20 19:15 08/31/20 21:59 Allergies Coded Allergies: haloperidol (Verified Adverse Reaction, Intermediate, LOCKJAW, 01/03/20) Has required & received this med many time without EPS noted risperidone (Verified Adverse Reaction, Mild, PSORIASIS, 11/26/19) REBECA MAHONEY MD Sep 24, 2020 15:09
[2020-09-24] MEDS: DIVALPROEX 500 MG TAB PO SCH (22:30)
[2020-09-25] MEDS: DIVALPROEX 250 MG TAB PO SCH (09:00)
[2020-09-25] MEDS: hydrOXYzine 25 MG TAB PO SCH ×2 (09:00→21:00)
[2020-09-25] MEDS: CETIRIZINE (ZyrTEC) 10 MG TAB PO SCH (09:00)
[2020-09-25] MEDS: TOPIRAMATE (TopAMAX) 100 MG TAB PO SCH ×2 (09:00→21:00)
[2020-09-25] MEDS: OLANZapine 10 MG TAB PO SCH ×2 (09:00→21:00)
--- NOTE | 2020-09-25 12:48 | MHIPNPDOC ---
[facility] Progress Note Progress Note DATE OF SERVICE: 09/25/20 HISTORY: 19-year-old female, numerous admissions numerous placements numerous failed placements continues self-harm acts. VITAL SIGNS: See below. NEW TEST RESULTS: None. CURRENT MEDICATIONS: See below. MENTAL STATUS EXAMINATION: Patient is a 19-year old female, who is, staying in her room all morning was not able to be examined, but by 12:30, was out in the ke[place] yelling at staff. Speech: Is. No gross disturbance. Language skills are. No gross disturbance. Thought processes including: Conflictual argumentative, poor reasoning. No self- control of emotion, poor relationships. Thought content: As above. Abstract reasoning, and computation:. Poor abstraction and poor computation. Description of associations:. No loose association. Description of abnormal or psychotic thoughts:. No psychotic thought much abnormal thought Judgment: Poor. Insight:poor. Orientation: 3. Recent and remote memory:, In tact. Attention span and concentration:, Poor. Language:. No gross disturbance. Fund of knowledge: Reasonable. Mood: Labile. Affect:, Congruent with lability. DIAGNOSES: 1. Cyclothymic disorder. 2., Borderline personality traits. 3. None. ASSESSMENT: As above. Patient continues noncompliant or at least erratically compliant with taking mood stabilizers MANAGEMENT PLAN: Waiting for placement. Continued behavioral management. TIME SPENT: 20 minutes. Vital Signs Vital Signs Date Time Temp Pulse Resp B/P (MAP) Pulse Ox O2 Delivery O2 Flow Rate FiO2 09/24/20 06:41 96.1 87 18 98/51 (67) 100 Current Medications Current Medications Medications (Trade) Dose Ordered Sig/Brielle Route PRN Reason Start Time Stop Time Status Last Admin Dose Admin Acetaminophen (Tylenol Tab) 650 mg Q6HP PRN PO HEADACHE or DISCOMFORT 08/24/20 19:15 09/22/20 21:37 Al Hydrox/Mg Hydrox/Simethicone (Mylanta) 30 ml Q4HP PRN PO HEARTBURN/INDIGESTION 08/24/20 19:15 09/22/20 21:55 Aripiprazole (AbiLIFY) 10 mg BID PO 08/29/20 09:00 09/07/20 06:57 DC 09/06/20 20:12 Aripiprazole (AbiLIFY) 10 mg TID PO 09/07/20 09:00 09/13/20 11:15 DC 09/12/20 20:21 Cefdinir (Omnicef) 300 mg BID PO 08/26/20 21:00 09/03/20 13:13 DC 09/03/20 08:39 Cetirizine HCl (ZyrTEC) 10 mg DAILY PO 09/01/20 09:00 09/23/20 09:20 Chlorpromazine HCl (Thorazine) 25 mg BID PO 08/25/20 21:00 08/29/20 09:28 DC 08/28/20 20:16 Chlorpromazine HCl (Thorazine) 25 mg TID PRN PO anxiety/agitation 08/25/20 17:45 09/15/20 19:27 Chlorpromazine HCl (Thorazine) 50 mg STAT STAT IM 08/25/20 23:13 08/25/20 23:17 DC 08/25/20 23:26 Chlorpromazine HCl (Thorazine) 50 mg STAT STAT IM 08/26/20 21:32 08/26/20 21:34 DC 08/26/20 21:51 Chlorpromazine HCl (Thorazine) 100 mg BID PO 08/25/20 21:00 08/29/20 09:28 DC 08/28/20 20:16 Diphenhydramine HCl (Benadryl) 50 mg STAT STAT IM 08/27/20 22:08 08/27/20 22:13 DC 08/27/20 22:24 Diphenhydramine HCl (Benadryl) 50 mg STAT STAT IM 08/27/20 23:04 08/27/20 23:09 DC 08/27/20 23:14 Diphenhydramine HCl (Benadryl) 50 mg STAT STAT IV 08/27/20 23:00 08/27/20 23:09 DC Divalproex Sodium (Depakote) 250 mg BID PO 09/12/20 09:00 09/13/20 12:00 DC 09/13/20 11:24 Divalproex Sodium (Depakote) 250 mg DAILY PO 09/14/20 09:00 09/23/20 09:20 Divalproex Sodium (Depakote) 500 mg QHS PO 09/13/20 21:00 09/23/20 22:16 Haloperidol (Haldol) 5 mg STAT STAT IM 08/27/20 23:00 08/27/20 23:03 DC 08/27/20 23:14 Haloperidol (Haldol) 10 mg STAT STAT IM 08/27/20 22:08 08/27/20 22:13 DC 08/27/20 22:25 Home Med (Med Rec Complete!) ASDIRECTED XX 08/24/20 20:00 08/24/20 19:54 DC Hydroxyzine HCl (Atarax) 25 mg TID PO 09/05/20 16:00 09/07/20 06:57 DC 09/06/20 08:08 Hydroxyzine HCl (Atarax) 50 mg TID PO 09/07/20 09:00 09/11/20 10:26 DC 09/10/20 21:23 Hydroxyzine HCl (Atarax) 75 mg BID PO 09/13/20 09:00 09/23/20 22:16 Hydroxyzine HCl (Atarax) 75 mg TID PO 09/11/20 16:00 09/13/20 11:11 DC 09/12/20 20:21 Hydroxyzine HCl (Atarax) 75 mg TID PO 09/13/20 09:00 09/13/20 11:16 DC Ibuprofen (Advil) 600 mg Q8HP PRN PO PAIN 08/26/20 19:00 09/22/20 17:25 Lorazepam (Ativan) 1 mg STAT STAT IM 08/25/20 23:13 08/25/20 23:17 DC 08/25/20 23:26 Lorazepam (Ativan) 1 mg STAT STAT IM 08/26/20 21:32 08/26/20 21:34 DC 08/26/20 21:51 Lorazepam (Ativan) 2 mg STAT STAT IM 08/27/20 22:08 08/27/20 22:13 DC 08/27/20 22:24 Lorazepam (Ativan) 2 mg STAT STAT IM 08/27/20 23:04 08/27/20 23:09 DC 08/27/20 23:14 Lorazepam (Ativan) 2 mg STAT STAT IV 08/27/20 23:00 08/27/20 23:09 DC Magnesium Hydroxide (Milk Of Magnesia) 30 ml DAILYPRN PRN PO CONSTIPATION 08/24/20 19:15 Olanzapine (ZyPREXA) 7.5 mg BID PO 09/12/20 09:00 09/12/20 08:05 DC Olanzapine (ZyPREXA) 10 mg BID PO 09/12/20 09:00 09/23/20 22:16 Topiramate (TopAMAX) 200 mg BID PO 08/25/20 21:00 09/23/20 22:17 Trazodone HCl (Desyrel) 50 mg QHSP PRN PO INSOMNIA 08/24/20 19:15 08/31/20 21:59 Allergies Coded Allergies: haloperidol (Verified Adverse Reaction, Intermediate, LOCKJAW, 01/03/20) Has required & received this med many time without EPS noted risperidone (Verified Adverse Reaction, Mild, PSORIASIS, 11/26/19) REBECA MAHONEY MD Sep 25, 2020 12:48
[2020-09-25] MEDS: DIVALPROEX 500 MG TAB PO SCH (21:00)
[2020-09-25] MEDS ORDERED: ChlorproMAZINE 100 MG TABLET PO ONE (22:20)
[2020-09-25] MEDS: chlorproMAZINE 25 MG TABLET PO PRN (22:25)
[2020-09-26] MEDS: CETIRIZINE (ZyrTEC) 10 MG TAB PO SCH (09:00)
[2020-09-26] MEDS: DIVALPROEX 250 MG TAB PO SCH (09:00)
[2020-09-26] MEDS: hydrOXYzine 25 MG TAB PO SCH ×2 (09:00→21:00)
[2020-09-26] MEDS: OLANZapine 5 MG TAB PO SCH ×2 (09:00→21:00)
[2020-09-26] MEDS: TOPIRAMATE (TopAMAX) 100 MG TAB PO SCH ×2 (09:00→21:00)
--- NOTE | 2020-09-26 09:18 | MHIPNPDOC ---
[facility] [place] Progress Note Progress Note DATE OF SERVICE: 09/26/20 HISTORY: 19-year-old female frequent admissions, frequent treatment failures, frequent placement failures, aggressive and self harming personality disorder do es profit from mood stabilizers and major tranquilizers, but noncompliant. VITAL SIGNS: See below. NEW TEST RESULTS: None. Previous Depakote level was of course low. CURRENT MEDICATIONS: See below. MENTAL STATUS EXAMINATION: Patient is a 19-year old female, who is. Continuing to be disruptive aggressive and loud on the unit, attempt to give her privileges while we're awaiting p lacement have again failed as patient behaves in a manner that always results in readmission. Speech: Is no gross disturbance. Language skills are. No gross disturbance. Thought processes including: Irrational with no lability at controlling her moods or behavior, some improvement was seen with mood stabilizers. The patient is noncompliant. Thought content: As above. Abstract reasoning, and computation:, Irrational thinking. Description of associations:, No loose associations. Description of abnormal or psychotic thoughts:. Abnormal thoughts as above. No psychotic thought. Judgment: Poor. Insight:, Limited. Orientation: 3. Recent and remote memory: Intact. Attention span and concentration:. Apparently intact. Language:. No gross disturbance. Fund of knowledge: Reasonable. Mood: Labile. Affect: Variable DIAGNOSES: 1. Cyclothymic disorder. 2., Borderline personality disorder. 3., Conduct disorder. ASSESSMENT:. As above MANAGEMENT PLAN: Placement being sought but prognosis continues poor. TIME SPENT: 20 minutes. Vital Signs Vital Signs Date Time Temp Pulse Resp B/P (MAP) Pulse Ox O2 Delivery O2 Flow Rate FiO2 09/24/20 06:41 96.1 87 18 98/51 (67) 100 Current Medications Current Medications Medications (Trade) Dose Ordered Sig/Brielle Route PRN Reason Start Time Stop Time Status Last Admin Dose Admin Acetaminophen (Tylenol Tab) 650 mg Q6HP PRN PO HEADACHE or DISCOMFORT 08/24/20 19:15 09/22/20 21:37 Al Hydrox/Mg Hydrox/Simethicone (Mylanta) 30 ml Q4HP PRN PO HEARTBURN/INDIGESTION 08/24/20 19:15 09/22/20 21:55 Aripiprazole (AbiLIFY) 10 mg BID PO 08/29/20 09:00 09/07/20 06:57 DC 2/26/21 20:12 Aripiprazole (AbiLIFY) 10 mg TID PO 09/07/20 09:00 09/13/20 11:15 DC 09/12/20 20:21 Cefdinir (Omnicef) 300 mg BID PO 08/26/20 21:00 09/03/20 13:13 DC 09/03/20 08:39 Cetirizine HCl (ZyrTEC) 10 mg DAILY PO 09/01/20 09:00 09/23/20 09:20 Chlorpromazine HCl (Thorazine) 25 mg BID PO 08/25/20 21:00 08/29/20 09:28 DC 08/28/20 20:16 Chlorpromazine HCl (Thorazine) 25 mg TID PRN PO anxiety/agitation 08/25/20 17:45 09/25/20 22:25 Chlorpromazine HCl (Thorazine) 50 mg STAT STAT IM 08/25/20 23:13 08/25/20 23:17 DC 08/25/20 23:26 Chlorpromazine HCl (Thorazine) 50 mg STAT STAT IM 08/26/20 21:32 08/26/20 21:34 DC 08/26/20 21:51 Chlorpromazine HCl (Thorazine) 100 mg BID PO 08/25/20 21:00 08/29/20 09:28 DC 08/28/20 20:16 Diphenhydramine HCl (Benadryl) 50 mg STAT STAT IM 08/27/20 22:08 08/27/20 22:13 DC 08/27/20 22:24 Diphenhydramine HCl (Benadryl) 50 mg STAT STAT IM 08/27/20 23:04 08/27/20 23:09 DC 08/27/20 23:14 Diphenhydramine HCl (Benadryl) 50 mg STAT STAT IV 08/27/20 23:00 08/27/20 23:09 DC Divalproex Sodium (Depakote) 250 mg BID PO 09/12/20 09:00 09/13/20 12:00 DC 09/13/20 11:24 Divalproex Sodium (Depakote) 250 mg DAILY PO 09/14/20 09:00 09/23/20 09:20 Divalproex Sodium (Depakote) 500 mg QHS PO 09/13/20 21:00 09/23/20 22:16 Haloperidol (Haldol) 5 mg STAT STAT IM 08/27/20 23:00 08/27/20 23:03 DC 08/27/20 23:14 Haloperidol (Haldol) 10 mg STAT STAT IM 08/27/20 22:08 08/27/20 22:13 DC 08/27/20 22:25 Home Med (Med Rec Complete!) ASDIRECTED XX 08/24/20 20:00 08/24/20 19:54 DC Hydroxyzine HCl (Atarax) 25 mg TID PO 09/05/20 16:00 09/07/20 06:57 DC 09/06/20 08:08 Hydroxyzine HCl (Atarax) 50 mg TID PO 09/07/20 09:00 09/11/20 10:26 DC 09/10/20 21:23 Hydroxyzine HCl (Atarax) 75 mg BID PO 09/13/20 09:00 09/23/20 22:16 Hydroxyzine HCl (Atarax) 75 mg TID PO 09/11/20 16:00 09/13/20 11:11 DC 09/12/20 20:21 Hydroxyzine HCl (Atarax) 75 mg TID PO 09/13/20 09:00 09/13/20 11:16 DC Ibuprofen (Advil) 600 mg Q8HP PRN PO PAIN 08/26/20 19:00 09/25/20 18:59 DC 09/22/20 17:25 Lorazepam (Ativan) 1 mg STAT STAT IM 08/25/20 23:13 08/25/20 23:17 DC 08/25/20 23:26 Lorazepam (Ativan) 1 mg STAT STAT IM 08/26/20 21:32 08/26/20 21:34 DC 08/26/20 21:51 Lorazepam (Ativan) 2 mg STAT STAT IM 08/27/20 22:08 08/27/20 22:13 DC 08/27/20 22:24 Lorazepam (Ativan) 2 mg STAT STAT IM 08/27/20 23:04 08/27/20 23:09 DC 08/27/20 23:14 Lorazepam (Ativan) 2 mg STAT STAT IV 08/27/20 23:00 08/27/20 23:09 DC Magnesium Hydroxide (Milk Of Magnesia) 30 ml DAILYPRN PRN PO CONSTIPATION 08/24/20 19:15 Olanzapine (ZyPREXA) 7.5 mg BID PO 09/12/20 09:00 09/12/20 08:05 DC Olanzapine (ZyPREXA) 10 mg BID PO 09/12/20 09:00 09/26/20 06:46 DC 09/23/20 22:16 Olanzapine (ZyPREXA) 15 mg BID PO 09/26/20 09:00 Topiramate (TopAMAX) 200 mg BID PO 08/25/20 21:00 09/23/20 22:17 Trazodone HCl (Desyrel) 50 mg QHSP PRN PO INSOMNIA 08/24/20 19:15 08/31/20 21:59 Allergies Coded Allergies: haloperidol (Verified Adverse Reaction, Intermediate, LOCKJAW, 01/03/20) Has required & received this med many time without EPS noted risperidone (Verified Adverse Reaction, Mild, PSORIASIS, 11/26/19) REBECA MAHONEY MD Sep 26, 2020 09:17
[2020-09-26] MEDS: DIVALPROEX 500 MG TAB PO SCH (21:00)
[2020-09-27] MEDS: chlorproMAZINE 25 MG TABLET PO PRN (00:28)
--- NOTE | 2020-09-27 08:33 | MHIPNPDOC ---
[facility] Progress Note Progress Note DATE OF SERVICE: 09/27/20 HISTORY: 19-year-old female with numerous admissions numerous placement failures numerous suicidal gestures, explosive, irritable, last night. Patient after t aking showers swallowed lotion and immediately told the nurse she was put on one-to-one. I have open discussion with mental health clinical pharmacy manager of possibility of treatment over objection. Placement of this patient seems a task that is bound to failure. Since patient has not been able to go a day without some self-harm activity. Despite her saying she wants to go to placement. She did a bit better and previous week with the Depakote added to her major tranquilizer, but patient was noncompliant with those meds VITAL SIGNS: See below. NEW TEST RESULTS: None. CURRENT MEDICATIONS: See below. MENTAL STATUS EXAMINATION: Patient is a. 19-year old female, who is. Mood labile and continually making gestures of self-harm., As well as, yelling and having other conflicts with staff and occasionally patients Language skills are. No gross disturbance. Thought processes including: Contradictory with poor reasoning and inability to control emotions. Thought content: As above. Abstract reasoning, and computation:. Poor abstract reasoning. Description of associations:, No loose associations. Description of abnormal or psychotic thoughts: No psychotic thought. Judgment: Poor. Insight:, Poor. Orientation: 3. Recent and remote memory: Intact. Attention span and concentration: Intact. Language:. No gross disturbance. Fund of knowledge: Reasonable. Mood: Labile. Affect:, Variable. DIAGNOSES: 1. Cyclothymic disorder. 2., Borderline personality. 3., Conduct disorder. ASSESSMENT: Patient seems unable to function on an inpatient basis or residential basis. Staff, discussion is considered treatment over objection, if patient continues to refuse medications MANAGEMENT PLAN: As above. TIME SPENT: 25 minutes. Vital Signs Vital Signs Date Time Temp Pulse Resp B/P (MAP) Pulse Ox O2 Delivery O2 Flow Rate FiO2 09/24/20 06:41 96.1 87 18 98/51 (67) 100 Current Medications Current Medications Medications (Trade) Dose Ordered Sig/Brielle Route PRN Reason Start Time Stop Time Status Last Admin Dose Admin Acetaminophen (Tylenol Tab) 650 mg Q6HP PRN PO HEADACHE or DISCOMFORT 08/24/20 19:15 09/22/20 21:37 Al Hydrox/Mg Hydrox/Simethicone (Mylanta) 30 ml Q4HP PRN PO HEARTBURN/INDIGESTION 08/24/20 19:15 09/22/20 21:55 Aripiprazole (AbiLIFY) 10 mg BID PO 08/29/20 09:00 09/07/20 06:57 DC 09/06/20 20:12 Aripiprazole (AbiLIFY) 10 mg TID PO 09/07/20 09:00 09/13/20 11:15 DC 09/12/20 20:21 Cefdinir (Omnicef) 300 mg BID PO 08/26/20 21:00 09/03/20 13:13 DC 09/03/20 08:39 Cetirizine HCl (ZyrTEC) 10 mg DAILY PO 09/01/20 09:00 09/23/20 09:20 Chlorpromazine HCl (Thorazine) 25 mg BID PO 08/25/20 21:00 08/29/20 09:28 DC 08/28/20 20:16 Chlorpromazine HCl (Thorazine) 25 mg TID PRN PO anxiety/agitation 08/25/20 17:45 09/27/20 00:28 Chlorpromazine HCl (Thorazine) 50 mg STAT STAT IM 08/25/20 23:13 08/25/20 23:17 DC 08/25/20 23:26 Chlorpromazine HCl (Thorazine) 50 mg STAT STAT IM 08/26/20 21:32 08/26/20 21:34 DC 08/26/20 21:51 Chlorpromazine HCl (Thorazine) 100 mg BID PO 08/25/20 21:00 08/29/20 09:28 DC 08/28/20 20:16 Diphenhydramine HCl (Benadryl) 50 mg STAT STAT IM 08/27/20 22:08 08/27/20 22:13 DC 08/27/20 22:24 Diphenhydramine HCl (Benadryl) 50 mg STAT STAT IM 08/27/20 23:04 08/27/20 23:09 DC 08/27/20 23:14 Diphenhydramine HCl (Benadryl) 50 mg STAT STAT IV 08/27/20 23:00 08/27/20 23:09 DC Divalproex Sodium (Depakote) 250 mg BID PO 09/12/20 09:00 09/13/20 12:00 DC 09/13/20 11:24 Divalproex Sodium (Depakote) 250 mg DAILY PO 09/14/20 09:00 09/23/20 09:20 Divalproex Sodium (Depakote) 500 mg QHS PO 09/13/20 21:00 09/23/20 22:16 Haloperidol (Haldol) 5 mg STAT STAT IM 08/27/20 23:00 08/27/20 23:03 DC 08/27/20 23:14 Haloperidol (Haldol) 10 mg STAT STAT IM 08/27/20 22:08 08/27/20 22:13 DC 08/27/20 22:25 Home Med (Med Rec Complete!) ASDIRECTED XX 08/24/20 20:00 08/24/20 19:54 DC Hydroxyzine HCl (Atarax) 25 mg TID PO 09/05/20 16:00 09/07/20 06:57 DC 09/06/20 08:08 Hydroxyzine HCl (Atarax) 50 mg TID PO 09/07/20 09:00 09/11/20 10:26 DC 09/10/20 21:23 Hydroxyzine HCl (Atarax) 75 mg BID PO 09/13/20 09:00 09/23/20 22:16 Hydroxyzine HCl (Atarax) 75 mg TID PO 09/11/20 16:00 09/13/20 11:11 DC 09/12/20 20:21 Hydroxyzine HCl (Atarax) 75 mg TID PO 09/13/20 09:00 09/13/20 11:16 DC Ibuprofen (Advil) 600 mg Q8HP PRN PO PAIN 08/26/20 19:00 09/25/20 18:59 DC 09/22/20 17:25 Lorazepam (Ativan) 1 mg STAT STAT IM 08/25/20 23:13 08/25/20 23:17 DC 08/25/20 23:26 Lorazepam (Ativan) 1 mg STAT STAT IM 08/26/20 21:32 08/26/20 21:34 DC 08/26/20 21:51 Lorazepam (Ativan) 2 mg STAT STAT IM 08/27/20 22:08 08/27/20 22:13 DC 08/27/20 22:24 Lorazepam (Ativan) 2 mg STAT STAT IM 08/27/20 23:04 08/27/20 23:09 DC 08/27/20 23:14 Lorazepam (Ativan) 2 mg STAT STAT IV 08/27/20 23:00 08/27/20 23:09 DC Magnesium Hydroxide (Milk Of Magnesia) 30 ml DAILYPRN PRN PO CONSTIPATION 08/24/20 19:15 Olanzapine (ZyPREXA) 7.5 mg BID PO 09/12/20 09:00 09/12/20 08:05 DC Olanzapine (ZyPREXA) 10 mg BID PO 09/12/20 09:00 09/26/20 06:46 DC 09/23/20 22:16 Olanzapine (ZyPREXA) 15 mg BID PO 09/26/20 09:00 Topiramate (TopAMAX) 200 mg BID PO 08/25/20 21:00 09/23/20 22:17 Trazodone HCl (Desyrel) 50 mg QHSP PRN PO INSOMNIA 08/24/20 19:15 08/31/20 21:59 Allergies Coded Allergies: haloperidol (Verified Adverse Reaction, Intermediate, LOCKJAW, 01/03/20) Has required & received this med many time without EPS noted risperidone (Verified Adverse Reaction, Mild, PSORIASIS, 11/26/19) REBECA MAHONEY MD Sep 27, 2020 08:33
[2020-09-27] MEDS: OLANZapine 5 MG TAB PO SCH ×2 (09:00→21:00)
[2020-09-27] MEDS: TOPIRAMATE (TopAMAX) 100 MG TAB PO SCH ×2 (09:00→21:00)
[2020-09-27] MEDS: hydrOXYzine 25 MG TAB PO SCH ×2 (09:00→21:00)
[2020-09-27] MEDS: DIVALPROEX 250 MG TAB PO SCH (09:00)
[2020-09-27] MEDS: CETIRIZINE (ZyrTEC) 10 MG TAB PO SCH (09:00)
[2020-09-27] MEDS: ACETAMINOPHEN TAB 650MG DOSE (2X325MG) PO PRN ×2 (13:51→23:59)
[2020-09-27 16:21] VITALS: BP 134/73
[2020-09-27] MEDS: DIVALPROEX 500 MG TAB PO SCH (21:00)
[2020-09-28] MEDS: hydrOXYzine 25 MG TAB PO SCH ×3 (00:26→19:40)
[2020-09-28] MEDS: TOPIRAMATE (TopAMAX) 100 MG TAB PO SCH ×3 (00:26→19:40)
[2020-09-28] MEDS: DIVALPROEX 500 MG TAB PO SCH ×2 (00:27→19:40)
[2020-09-28] MEDS: OLANZapine 5 MG TAB PO SCH ×3 (00:27→19:40)
[2020-09-28] MEDS: CETIRIZINE (ZyrTEC) 10 MG TAB PO SCH (09:00)
[2020-09-28] MEDS: DIVALPROEX 250 MG TAB PO SCH (09:00)
[2020-09-28 16:13] VITALS: BP 121/78
[2020-09-28] MEDS: chlorproMAZINE 25 MG TABLET PO PRN (19:41)
[2020-09-29] MEDS: hydrOXYzine 25 MG TAB PO SCH ×2 (09:00→20:07)
[2020-09-29] MEDS: OLANZapine 5 MG TAB PO SCH ×2 (09:00→21:00)
[2020-09-29] MEDS: TOPIRAMATE (TopAMAX) 100 MG TAB PO SCH ×2 (09:00→21:00)
[2020-09-29] MEDS: DIVALPROEX 250 MG TAB PO SCH (09:00)
[2020-09-29] MEDS: CETIRIZINE (ZyrTEC) 10 MG TAB PO SCH (09:00)
--- NOTE | 2020-09-29 11:53 | MHIPNPDOC ---
[facility] Progress Note Progress Note DATE OF SERVICE: 09/28/2020 HISTORY: 19-year-old numerous admissions numerous placements numerous failed placements numerous suicide gestures numerous explosive episodes with staff and patients. VITAL SIGNS: See below. NEW TEST RESULTS: None. CURRENT MEDICATIONS: See below. MENTAL STATUS EXAMINATION: Patient is a 19-year old female, who is daily episodes of explosiveness, argumentativeness, and frequent self harming gestures. Noncompliant with medication Erratically. Speech: Is no gross disturbance. Language skills are. No gross disturbance. Thought processes including: States she does not want to take medication because she feels she will always overdose on. Thought content: As above. Abstract reasoning, and computation:, Poor reasoning. Description of associations:. No loose association. Description of abnormal or psychotic thoughts:. No psychotic thoughts. Judgment:, Poor. Insight:, Poor. Orientation: 3. Recent and remote memory:. Intact. Attention span and concentration: Intact. Language:. No gross disturbance. Fund of knowledge: Reasonable. Mood: Labile. Affect: And variable. DIAGNOSES: 1. Cyclothymic disorder. 2., Borderline personality traits. 3.. Conduct disorder. ASSESSMENT:. As above MANAGEMENT PLAN: Although placement is planned. Prognosis based on patient's behavior is poor. TIME SPENT:, 25 minutes. Vital Signs Vital Signs Date Time Temp Pulse Resp B/P (MAP) Pulse Ox O2 Delivery O2 Flow Rate FiO2 09/28/20 16:13 97.5 92 18 121/78 (92) 100 Room Air Current Medications Current Medications Medications (Trade) Dose Ordered Sig/Brielle Route PRN Reason Start Time Stop Time Status Last Admin Dose Admin Acetaminophen (Tylenol Tab) 650 mg Q6HP PRN PO HEADACHE or DISCOMFORT 08/24/20 19:15 09/27/20 23:59 Al Hydrox/Mg Hydrox/Simethicone (Mylanta) 30 ml Q4HP PRN PO HEARTBURN/INDIGESTION 08/24/20 19:15 09/22/20 21:55 Aripiprazole (AbiLIFY) 10 mg BID PO 08/29/20 09:00 09/07/20 06:57 DC 09/06/20 20:12 Aripiprazole (AbiLIFY) 10 mg TID PO 09/07/20 09:00 09/13/20 11:15 DC 09/12/20 20:21 Cefdinir (Omnicef) 300 mg BID PO 08/26/20 21:00 09/03/20 13:13 DC 09/03/20 08:39 Cetirizine HCl (ZyrTEC) 10 mg DAILY PO 09/01/20 09:00 09/23/20 09:20 Chlorpromazine HCl (Thorazine) 25 mg BID PO 08/25/20 21:00 08/29/20 09:28 DC 08/28/20 20:16 Chlorpromazine HCl (Thorazine) 25 mg TID PRN PO anxiety/agitation 08/25/20 17:45 09/28/20 19:41 Chlorpromazine HCl (Thorazine) 50 mg STAT STAT IM 08/25/20 23:13 08/25/20 23:17 DC 08/25/20 23:26 Chlorpromazine HCl (Thorazine) 50 mg STAT STAT IM 08/26/20 21:32 08/26/20 21:34 DC 08/26/20 21:51 Chlorpromazine HCl (Thorazine) 100 mg BID PO 08/25/20 21:00 08/29/20 09:28 DC 08/28/20 20:16 Diphenhydramine HCl (Benadryl) 50 mg STAT STAT IM 08/27/20 22:08 08/27/20 22:13 DC 08/27/20 22:24 Diphenhydramine HCl (Benadryl) 50 mg STAT STAT IM 08/27/20 23:04 08/27/20 23:09 DC 08/27/20 23:14 Diphenhydramine HCl (Benadryl) 50 mg STAT STAT IV 08/27/20 23:00 08/27/20 23:09 DC Divalproex Sodium (Depakote) 250 mg BID PO 09/12/20 09:00 09/13/20 12:00 DC 09/13/20 11:24 Divalproex Sodium (Depakote) 250 mg DAILY PO 09/14/20 09:00 09/23/20 09:20 Divalproex Sodium (Depakote) 500 mg QHS PO 09/13/20 21:00 09/28/20 19:40 Haloperidol (Haldol) 5 mg STAT STAT IM 08/27/20 23:00 08/27/20 23:03 DC 08/27/20 23:14 Haloperidol (Haldol) 10 mg STAT STAT IM 08/27/20 22:08 08/27/20 22:13 DC 08/27/20 22:25 Home Med (Med Rec Complete!) ASDIRECTED XX 08/24/20 20:00 08/24/20 19:54 DC Hydroxyzine HCl (Atarax) 25 mg TID PO 09/05/20 16:00 09/07/20 06:57 DC 09/06/20 08:08 Hydroxyzine HCl (Atarax) 50 mg TID PO 09/07/20 09:00 09/11/20 10:26 DC 09/10/20 21:23 Hydroxyzine HCl (Atarax) 75 mg BID PO 09/13/20 09:00 09/28/20 19:40 Hydroxyzine HCl (Atarax) 75 mg TID PO 09/11/20 16:00 09/13/20 11:11 DC 09/12/20 20:21 Hydroxyzine HCl (Atarax) 75 mg TID PO 09/13/20 09:00 09/13/20 11:16 DC Ibuprofen (Advil) 600 mg Q8HP PRN PO PAIN 08/26/20 19:00 09/25/20 18:59 DC 09/22/20 17:25 Lorazepam (Ativan) 1 mg STAT STAT IM 08/25/20 23:13 08/25/20 23:17 DC 08/25/20 23:26 Lorazepam (Ativan) 1 mg STAT STAT IM 08/26/20 21:32 08/26/20 21:34 DC 08/26/20 21:51 Lorazepam (Ativan) 2 mg STAT STAT IM 08/27/20 22:08 08/27/20 22:13 DC 08/27/20 22:24 Lorazepam (Ativan) 2 mg STAT STAT IM 08/27/20 23:04 08/27/20 23:09 DC 08/27/20 23:14 Lorazepam (Ativan) 2 mg STAT STAT IV 08/27/20 23:00 08/27/20 23:09 DC Magnesium Hydroxide (Milk Of Magnesia) 30 ml DAILYPRN PRN PO CONSTIPATION 08/24/20 19:15 Olanzapine (ZyPREXA) 7.5 mg BID PO 09/12/20 09:00 09/12/20 08:05 DC Olanzapine (ZyPREXA) 10 mg BID PO 09/12/20 09:00 09/26/20 06:46 DC 09/23/20 22:16 Olanzapine (ZyPREXA) 15 mg BID PO 09/26/20 09:00 09/28/20 19:40 Topiramate (TopAMAX) 200 mg BID PO 08/25/20 21:00 09/28/20 19:40 Trazodone HCl (Desyrel) 50 mg QHSP PRN PO INSOMNIA 08/24/20 19:15 08/31/20 21:59 Allergies Coded Allergies: haloperidol (Verified Adverse Reaction, Intermediate, LOCKJAW, 01/03/20) Has required & received this med many time without EPS noted risperidone (Verified Adverse Reaction, Mild, PSORIASIS, 11/26/19) REBECA MAHONEY MD Sep 29, 2020 09:58
[2020-09-29] MEDS ORDERED: ChlorproMAZINE 100 MG TABLET PO ONE (20:00)
[2020-09-29] MEDS: chlorproMAZINE 25 MG TABLET PO PRN (20:07)
[2020-09-29] MEDS: DIVALPROEX 500 MG TAB PO SCH (21:00)
[2020-09-29] MEDS ORDERED: LORazepam 2 MG/ML VIAL IM STA (21:43)
[2020-09-29] MEDS ORDERED: diphenhydrAMINE 50MG/ML VIAL (J1200) IM STA (21:43)
[2020-09-29] MEDS ORDERED: HALOPERIDOL 5MG/ML VIAL (J1630 PER 1) IM STA (21:43)
--- NOTE | 2020-09-29 22:15 | IPNPDOC ---
Text Note Date of Service The patient was seen on 09/29/20. NOTE Time of service 9:41pm PSYCH CERTIFICATION FACE TO FACE: yes PHYSICIAN ASSESSMENT: The patient was agitated, swearing and yelling at staff and not following verbal instructions REASON FOR RESTRAINT: The patient was a danger to the staff. DE-ESCALATION INTERVENTIONS ATTEMPTED BEFORE USE OF RESTRAINTS: verbal redirection [MECHANICAL AND/OR CHEMICAL] RESTRAINTS USED: Both LENGTH OF TIME ORDERED IN RESTRAINTS: 4 hours WHEN TO DISCONTINUE RESTRAINTS: When the patient is no longer a threat to herself or others Post evaluation of restraint due in 24 hours. VS,Fishbone, I+O VS, Fishbone, I+O Vital Signs Date Time Temp Pulse Resp B/P (MAP) Pulse Ox O2 Delivery O2 Flow Rate FiO2 09/28/20 16:13 97.5 92 18 121/78 (92) 100 Room Air STEFANY CONLEY MD Sep 29, 2020 22:15
[2020-09-30] MEDS ORDERED: HALOPERIDOL DECANOATE 100 MG/ML VIAL (J1631) IM ONE (07:30)
[2020-09-30] MEDS: CETIRIZINE (ZyrTEC) 10 MG TAB PO SCH (09:00)
[2020-09-30] MEDS: TOPIRAMATE (TopAMAX) 100 MG TAB PO SCH ×2 (09:00→21:00)
[2020-09-30] MEDS: hydrOXYzine 25 MG TAB PO SCH ×2 (09:00→21:00)
--- NOTE | 2020-09-30 10:41 | MHIPNPDOC ---
[facility] Progress Note Progress Note DATE OF SERVICE: 09/30/20 HISTORY: Numerous overdose attempts, including soap toothpaste despite staff attempts to remove items last night. Patient required intramuscular injection for explosive behavior. Patient agreed last night to long-acting injection, and I have ordered Haldol to [place]. Weight 100 mg. VITAL SIGNS: See below. NEW TEST RESULTS: CURRENT MEDICATIONS: See below. MENTAL STATUS EXAMINATION: Patient is a 19-year old female, who is continuing to have frequent outbursts, and suicide gestures. Patient has a history of unsuccessful treatment frequent hospitalizations, frequent placement failures. Speech: Is no gross disturbance. Language skills are Yoly disturbance. Thought processes including: Unable to engage in consistent relationship easily offended and angered when not getting what she wants, even the smallest of situations. Thought content: As above. Abstract reasoning, and computation:. Poor abstraction. Description of associations:. No loose association. Description of abnormal or psychotic thoughts:. Thoughts are abnormal, but not psychotic. Judgment:, Poor. Insight:, Poor. Orientation: 3. Recent and remote memory: Intact. Attention span and concentration: Intact. Language:. No disturbance. Fund of knowledge: Reasonable. Mood: Labile. Affect:, Variable. DIAGNOSES: 1. Cyclothymic disorder. 2., Conduct disorder. 3..Borderline Personality traits. ASSESSMENT: Solution for this young lady may end up treatment over objection, b ut even if she is discharged and placed that will again resulted in recurrence when she stops her medication. At times the use of mood stabilizers and neuroleptics were shown to be of some use in decreasing her outbursts. The patient was noncompliant with medication. Patient was discussed with staff during the night and this morning and throughout the weekend MANAGEMENT PLAN: As above. TIME SPENT:, 30 minutes. Vital Signs Vital Signs Date Time Temp Pulse Resp B/P (MAP) Pulse Ox O2 Delivery O2 Flow Rate FiO2 09/28/20 16:13 97.5 92 18 121/78 (92) 100 Room Air Current Medications Current Medications Medications (Trade) Dose Ordered Sig/Brielle Route PRN Reason Start Time Stop Time Status Last Admin Dose Admin Acetaminophen (Tylenol Tab) 650 mg Q6HP PRN PO HEADACHE or DISCOMFORT 08/24/20 19:15 09/27/20 23:59 Al Hydrox/Mg Hydrox/Simethicone (Mylanta) 30 ml Q4HP PRN PO HEARTBURN/INDIGESTION 08/24/20 19:15 09/22/20 21:55 Aripiprazole (AbiLIFY) 10 mg BID PO 08/29/20 09:00 09/07/20 06:57 DC 09/06/20 20:12 Aripiprazole (AbiLIFY) 10 mg TID PO 09/07/20 09:00 09/13/20 11:15 DC 09/12/20 20:21 Cefdinir (Omnicef) 300 mg BID PO 08/26/20 21:00 09/03/20 13:13 DC 09/03/20 08:39 Cetirizine HCl (ZyrTEC) 10 mg DAILY PO 09/01/20 09:00 09/23/20 09:20 Chlorpromazine HCl (Thorazine) 25 mg BID PO 08/25/20 21:00 08/29/20 09:28 DC 08/28/20 20:16 Chlorpromazine HCl (Thorazine) 25 mg TID PRN PO anxiety/agitation 08/25/20 17:45 09/29/20 20:07 Chlorpromazine HCl (Thorazine) 50 mg STAT STAT IM 08/25/20 23:13 08/25/20 23:17 DC 08/25/20 23:26 Chlorpromazine HCl (Thorazine) 50 mg STAT STAT IM 08/26/20 21:32 08/26/20 21:34 DC 08/26/20 21:51 Chlorpromazine HCl (Thorazine) 100 mg BID PO 08/25/20 21:00 08/29/20 09:28 DC 08/28/20 20:16 Diphenhydramine HCl (Benadryl) 50 mg STAT STAT IM 08/27/20 22:08 08/27/20 22:13 DC 08/27/20 22:24 Diphenhydramine HCl (Benadryl) 50 mg STAT STAT IM 08/27/20 23:04 08/27/20 23:09 DC 08/27/20 23:14 Diphenhydramine HCl (Benadryl) 50 mg STAT STAT IV 08/27/20 23:00 08/27/20 23:09 DC Diphenhydramine HCl (Benadryl) 100 mg STAT STAT IM 3/21/21 21:43 09/29/20 21:46 DC 09/29/20 22:00 Divalproex Sodium (Depakote) 250 mg BID PO 09/12/20 09:00 09/13/20 12:00 DC 09/13/20 11:24 Divalproex Sodium (Depakote) 250 mg DAILY PO 09/14/20 09:00 09/30/20 07:25 DC 09/23/20 09:20 Divalproex Sodium (Depakote) 500 mg QHS PO 09/13/20 21:00 09/28/20 19:40 Haloperidol (Haldol) 5 mg STAT STAT IM 08/27/20 23:00 08/27/20 23:03 DC 08/27/20 23:14 Haloperidol (Haldol) 10 mg STAT STAT IM 08/27/20 22:08 08/27/20 22:13 DC 08/27/20 22:25 Haloperidol (Haldol) 15 mg STAT STAT IM 09/29/20 21:43 09/29/20 21:46 DC 09/29/20 22:00 Home Med (Med Rec Complete!) ASDIRECTED XX 08/24/20 20:00 08/24/20 19:54 DC Hydroxyzine HCl (Atarax) 25 mg TID PO 09/05/20 16:00 09/07/20 06:57 DC 09/06/20 08:08 Hydroxyzine HCl (Atarax) 50 mg TID PO 09/07/20 09:00 09/11/20 10:26 DC 09/10/20 21:23 Hydroxyzine HCl (Atarax) 75 mg BID PO 09/13/20 09:00 09/29/20 20:07 Hydroxyzine HCl (Atarax) 75 mg TID PO 09/11/20 16:00 09/13/20 11:11 DC 09/12/20 20:21 Hydroxyzine HCl (Atarax) 75 mg TID PO 09/13/20 09:00 09/13/20 11:16 DC Ibuprofen (Advil) 600 mg Q8HP PRN PO PAIN 08/26/20 19:00 09/25/20 18:59 DC 09/22/20 17:25 Lorazepam (Ativan) 1 mg STAT STAT IM 08/25/20 23:13 08/25/20 23:17 DC 08/25/20 23:26 Lorazepam (Ativan) 1 mg STAT STAT IM 08/26/20 21:32 08/26/20 21:34 DC 08/26/20 21:51 Lorazepam (Ativan) 2 mg STAT STAT IM 08/27/20 22:08 08/27/20 22:13 DC 08/27/20 22:24 Lorazepam (Ativan) 2 mg STAT STAT IM 08/27/20 23:04 08/27/20 23:09 DC 08/27/20 23:14 Lorazepam (Ativan) 2 mg STAT STAT IM 09/29/20 21:43 09/29/20 21:46 DC 09/29/20 22:00 Lorazepam (Ativan) 2 mg STAT STAT IV 08/27/20 23:00 08/27/20 23:09 DC Magnesium Hydroxide (Milk Of Magnesia) 30 ml DAILYPRN PRN PO CONSTIPATION 08/24/20 19:15 Olanzapine (ZyPREXA) 7.5 mg BID PO 09/12/20 09:00 09/12/20 08:05 DC Olanzapine (ZyPREXA) 10 mg BID PO 09/12/20 09:00 09/26/20 06:46 DC 09/23/20 22:16 Olanzapine (ZyPREXA) 15 mg BID PO 09/26/20 09:00 09/30/20 07:25 DC 09/28/20 19:40 Topiramate (TopAMAX) 200 mg BID PO 08/25/20 21:00 09/28/20 19:40 Trazodone HCl (Desyrel) 50 mg QHSP PRN PO INSOMNIA 08/24/20 19:15 08/31/20 21:59 Allergies Coded Allergies: haloperidol (Verified Adverse Reaction, Intermediate, LOCKJAW, 01/03/20) Has required & received this med many time without EPS noted risperidone (Verified Adverse Reaction, Mild, PSORIASIS, 11/26/19) REBECA MAHONEY MD Sep 30, 2020 10:41
[2020-09-30] MEDS ORDERED: QUEtiapine FUMARATE 50MG TAB PO SCH (17:15)
[2020-09-30] MEDS: DIVALPROEX 500 MG TAB PO SCH (21:00)
[2020-10-01] MEDS: CETIRIZINE (ZyrTEC) 10 MG TAB PO SCH (08:48)
--- NOTE | 2020-10-01 15:08 | MHIPNPDOC ---
[facility] Progress Note Progress Note DATE OF SERVICE: 10/01/20 HISTORY: Numerous overdose attempts, including soap toothpaste despite staff attempts to remove items last night. Patient required intramuscular injection fo r explosive behavior. Patient agreed last night to long-acting injection, and I have ordered Haldol Decanoate 100 mg. Patient has refused all oral and IM Medications. They have been discontinued. Patient continues to blame staff for her outbursts despite fact that she has collected forks to scratch herself, swallow soap, swallow toothpaste. VITAL SIGNS: See below. NEW TEST RESULTS: CURRENT MEDICATIONS: See below. MENTAL STATUS EXAMINATION: Patient is a 19-year old female, who is continuing to have frequent outbursts, and suicide gestures. Patient has a history of unsuccessful treatment frequent hospitalizations, frequent placement failures. Speech: Is no gross disturbance. Language skills are Yoly disturbance. Thought processes including: Unable to engage in consistent relationship easily offended and angered when not getting what she wants, even the smallest of situations. Thought content: As above. Abstract reasoning, and computation:. Poor abstraction. Description of associations:. No loose association. Description of abnormal or psychotic thoughts:. Thoughts are abnormal, but not psychotic. Judgment:, Poor. Insight:, Poor. Orientation: 3. Recent and remote memory: Intact. Attention span and concentration: Intact. Language:. No disturbance. Fund of knowledge: Reasonable. Mood: Labile. Affect:, Variable. DIAGNOSES: 1. Cyclothymic disorder. 2., Conduct disorder. 3..Borderline Personality traits. ASSESSMENT: Solution for this young lady may end up treatment over objection, but even if she is discharged and placed that will again resulted in recurrence when she stops her medication. At times the use of mood stabilizers and neuroleptics were shown to be of some use in decreasing her outbursts. The patient was noncompliant with medication. Patient was discussed with staff during the night and this morning and throughout the weekend MANAGEMENT PLAN: As above. TIME SPENT:, 30 minutes. Vital Signs Vital Signs Date Time Temp Pulse Resp B/P (MAP) Pulse Ox O2 Delivery O2 Flow Rate FiO2 09/28/20 16:13 97.5 92 18 121/78 (92) 100 Room Air Current Medications Current Medications Medications (Trade) Dose Ordered Sig/Brielle Route PRN Reason Start Time Stop Time Status Last Admin Dose Admin Acetaminophen (Tylenol Tab) 650 mg Q6HP PRN PO HEADACHE or DISCOMFORT 08/24/20 19:15 09/27/20 23:59 Al Hydrox/Mg Hydrox/Simethicone (Mylanta) 30 ml Q4HP PRN PO HEARTBURN/INDIGESTION 08/24/20 19:15 09/22/20 21:55 Aripiprazole (AbiLIFY) 10 mg BID PO 08/29/20 09:00 09/07/20 06:57 DC 09/06/20 20:12 Aripiprazole (AbiLIFY) 10 mg TID PO 09/07/20 09:00 09/13/20 11:15 DC 09/12/20 20:21 Cefdinir (Omnicef) 300 mg BID PO 08/26/20 21:00 09/03/20 13:13 DC 09/03/20 08:39 Cetirizine HCl (ZyrTEC) 10 mg DAILY PO 09/01/20 09:00 10/01/20 08:48 Chlorpromazine HCl (Thorazine) 25 mg BID PO 08/25/20 21:00 08/29/20 09:28 DC 08/28/20 20:16 Chlorpromazine HCl (Thorazine) 25 mg TID PRN PO anxiety/agitation 08/25/20 17:45 10/01/20 08:39 DC 09/29/20 20:07 Chlorpromazine HCl (Thorazine) 50 mg STAT STAT IM 08/25/20 23:13 08/25/20 23:17 DC 08/25/20 23:26 Chlorpromazine HCl (Thorazine) 50 mg STAT STAT IM 08/26/20 21:32 08/26/20 21:34 DC 08/26/20 21:51 Chlorpromazine HCl (Thorazine) 100 mg BID PO 08/25/20 21:00 08/29/20 09:28 DC 08/28/20 20:16 Diphenhydramine HCl (Benadryl) 50 mg STAT STAT IM 08/27/20 22:08 08/27/20 22:13 DC 08/27/20 22:24 Diphenhydramine HCl (Benadryl) 50 mg STAT STAT IM 08/27/20 23:04 08/27/20 23:09 DC 08/27/20 23:14 Diphenhydramine HCl (Benadryl) 50 mg STAT STAT IV 08/27/20 23:00 08/27/20 23:09 DC Diphenhydramine HCl (Benadryl) 100 mg STAT STAT IM 09/29/20 21:43 09/29/20 21:46 DC 09/29/20 22:00 Divalproex Sodium (Depakote) 250 mg BID PO 09/12/20 09:00 09/13/20 12:00 DC 09/13/20 11:24 Divalproex Sodium (Depakote) 250 mg DAILY PO 09/14/20 09:00 09/30/20 07:25 DC 09/23/20 09:20 Divalproex Sodium (Depakote) 500 mg QHS PO 09/13/20 21:00 10/01/20 08:39 DC 09/28/20 19:40 Haloperidol (Haldol) 5 mg STAT STAT IM 08/27/20 23:00 08/27/20 23:03 DC 08/27/20 23:14 Haloperidol (Haldol) 10 mg STAT STAT IM 08/27/20 22:08 08/27/20 22:13 DC 08/27/20 22:25 Haloperidol (Haldol) 15 mg STAT STAT IM 09/29/20 21:43 09/29/20 21:46 DC 09/29/20 22:00 Home Med (Med Rec Complete!) ASDIRECTED XX 08/24/20 20:00 08/24/20 19:54 DC Hydroxyzine HCl (Atarax) 25 mg TID PO 09/05/20 16:00 09/07/20 06:57 DC 09/06/20 08:08 Hydroxyzine HCl (Atarax) 50 mg TID PO 09/07/20 09:00 09/11/20 10:26 DC 09/10/20 21:23 Hydroxyzine HCl (Atarax) 75 mg BID PO 09/13/20 09:00 10/01/20 08:39 DC 09/29/20 20:07 Hydroxyzine HCl (Atarax) 75 mg TID PO 09/11/20 16:00 09/13/20 11:11 DC 09/12/20 20:21 Hydroxyzine HCl (Atarax) 75 mg TID PO 09/13/20 09:00 09/13/20 11:16 DC Ibuprofen (Advil) 600 mg Q8HP PRN PO PAIN 08/26/20 19:00 09/25/20 18:59 DC 09/22/20 17:25 Lorazepam (Ativan) 1 mg STAT STAT IM 08/25/20 23:13 08/25/20 23:17 DC 08/25/20 23:26 Lorazepam (Ativan) 1 mg STAT STAT IM 08/26/20 21:32 08/26/20 21:34 DC 08/26/20 21:51 Lorazepam (Ativan) 2 mg STAT STAT IM 08/27/20 22:08 08/27/20 22:13 DC 08/27/20 22:24 Lorazepam (Ativan) 2 mg STAT STAT IM 08/27/20 23:04 08/27/20 23:09 DC 08/27/20 23:14 Lorazepam (Ativan) 2 mg STAT STAT IM 09/29/20 21:43 09/29/20 21:46 DC 09/29/20 22:00 Lorazepam (Ativan) 2 mg STAT STAT IV 08/27/20 23:00 08/27/20 23:09 DC Magnesium Hydroxide (Milk Of Magnesia) 30 ml DAILYPRN PRN PO CONSTIPATION 08/24/20 19:15 Olanzapine (ZyPREXA) 7.5 mg BID PO 09/12/20 09:00 09/12/20 08:05 DC Olanzapine (ZyPREXA) 10 mg BID PO 09/12/20 09:00 09/26/20 06:46 DC 09/23/20 22:16 Olanzapine (ZyPREXA) 15 mg BID PO 09/26/20 09:00 09/30/20 07:25 DC 09/28/20 19:40 Quetiapine Fumarate (SEROquel) 50 mg BIDP PO 09/30/20 17:15 09/30/20 17:43 DC Quetiapine Fumarate (SEROquel) 50 mg BIDP PRN PO anxiety 09/30/20 17:40 Topiramate (TopAMAX) 200 mg BID PO 08/25/20 21:00 10/01/20 08:39 DC 09/28/20 19:40 Trazodone HCl (Desyrel) 50 mg QHSP PRN PO INSOMNIA 08/24/20 19:15 10/01/20 08:39 DC 08/31/20 21:59 Allergies Coded Allergies: haloperidol (Verified Adverse Reaction, Intermediate, LOCKJAW, 01/03/20) Has required & received this med many time without EPS noted risperidone (Verified Adverse Reaction, Mild, PSORIASIS, 11/26/19) REBECA MAHONEY MD Oct 01, 2020 15:08
[2020-10-02 00:04] VITALS: BP 135/75
--- NOTE | 2020-10-02 07:15 | MHIPNPDOC ---
[facility] Progress Note Progress Note DATE OF SERVICE: 10/02/20 HISTORY: Numerous overdose attempts, including soap toothpaste despite staff attempts to remove items last night. Patient required intramuscular injection for explosive behavior. Patient agreed last night to long-acting injection, and I have ordered Haldol Decanoate 100 mg. Patient has refused all oral and IM Medications. They have been discontinued. Patient continues to blame staff for her outbursts despite fact that she has collected forks to scratch herself, swallow soap, swallow toothpaste. Again swallowed lotion last night. Patient refusing all medications. The use of treatment over objection has been suggested. But if she is placed even that treatment would be of little to no use. VITAL SIGNS: See below. NEW TEST RESULTS: CURRENT MEDICATIONS: See below. MENTAL STATUS EXAMINATION: Patient is a 19-year old female, who is continuing to have frequent outbursts, and suicide gestures. Patient has a history of unsuccessful treatment frequent hospitalizations, frequent placement failures. Speech: Is no gross disturbance. Language skills are Yoly disturbance. Thought processes including: Unable to engage in consistent relationship easily offended and angered when not getting what she wants, even the smallest of situations. Thought content: As above. Abstract reasoning, and computation:. Poor abstraction. Description of associations:. No loose association. Description of abnormal or psychotic thoughts:. Thoughts are abnormal, but not psychotic. Judgment:, Poor. Insight:, Poor. Orientation: 3. Recent and remote memory: Intact. Attention span and concentration: Intact. Language:. No disturbance. Fund of knowledge: Reasonable. Mood: Labile. Affect:, Variable. DIAGNOSES: 1. Cyclothymic disorder. 2., Conduct disorder. 3..Borderline Personality traits. ASSESSMENT: Solution for this young lady may end up treatment over objection, but even if she is discharged and placed that will again resulted in recurrence when she stops her medication. At times the use of mood stabilizers and neuroleptics were shown to be of some use in decreasing her outbursts. The patient was noncompliant with medication. Patient was discussed with staff during the night and this morning and throughout the weekend and once again this morning. MANAGEMENT PLAN: As above. TIME SPENT:, 30 minutes. VITAL SIGNS: See below. NEW TEST RESULTS: none Vital Signs Vital Signs Date Time Temp Pulse Resp B/P (MAP) Pulse Ox O2 Delivery O2 Flow Rate FiO2 10/02/20 00:04 97.8 91 18 135/75 (95) 100 Room Air Current Medications Current Medications Medications (Trade) Dose Ordered Sig/Brielle Route PRN Reason Start Time Stop Time Status Last Admin Dose Admin Acetaminophen (Tylenol Tab) 650 mg Q6HP PRN PO HEADACHE or DISCOMFORT 08/24/20 19:15 09/27/20 23:59 Al Hydrox/Mg Hydrox/Simethicone (Mylanta) 30 ml Q4HP PRN PO HEARTBURN/INDIGESTION 08/24/20 19:15 09/22/20 21:55 Aripiprazole (AbiLIFY) 10 mg BID PO 08/29/20 09:00 09/07/20 06:57 DC 09/06/20 20:12 Aripiprazole (AbiLIFY) 10 mg TID PO 09/07/20 09:00 09/13/20 11:15 DC 09/12/20 20:21 Cefdinir (Omnicef) 300 mg BID PO 08/26/20 21:00 09/03/20 13:13 DC 09/03/20 08:39 Cetirizine HCl (ZyrTEC) 10 mg DAILY PO 09/01/20 09:00 10/01/20 08:48 Chlorpromazine HCl (Thorazine) 25 mg BID PO 08/25/20 21:00 08/29/20 09:28 DC 08/28/20 20:16 Chlorpromazine HCl (Thorazine) 25 mg TID PRN PO anxiety/agitation 08/25/20 17:45 10/01/20 08:39 DC 09/29/20 20:07 Chlorpromazine HCl (Thorazine) 50 mg STAT STAT IM 08/25/20 23:13 08/25/20 23:17 DC 08/25/20 23:26 Chlorpromazine HCl (Thorazine) 50 mg STAT STAT IM 08/26/20 21:32 08/26/20 21:34 DC 08/26/20 21:51 Chlorpromazine HCl (Thorazine) 100 mg BID PO 08/25/20 21:00 08/29/20 09:28 DC 08/28/20 20:16 Diphenhydramine HCl (Benadryl) 50 mg STAT STAT IM 08/27/20 22:08 08/27/20 22:13 DC 08/27/20 22:24 Diphenhydramine HCl (Benadryl) 50 mg STAT STAT IM 08/27/20 23:04 08/27/20 23:09 DC 08/27/20 23:14 Diphenhydramine HCl (Benadryl) 50 mg STAT STAT IV 08/27/20 23:00 08/27/20 23:09 DC Diphenhydramine HCl (Benadryl) 100 mg STAT STAT IM 09/29/20 21:43 09/29/20 21:46 DC 09/29/20 22:00 Divalproex Sodium (Depakote) 250 mg BID PO 09/12/20 09:00 09/13/20 12:00 DC 09/13/20 11:24 Divalproex Sodium (Depakote) 250 mg DAILY PO 09/14/20 09:00 09/30/20 07:25 DC 09/23/20 09:20 Divalproex Sodium (Depakote) 500 mg QHS PO 09/13/20 21:00 10/01/20 08:39 DC 09/28/20 19:40 Haloperidol (Haldol) 5 mg STAT STAT IM 08/27/20 23:00 08/27/20 23:03 DC 08/27/20 23:14 Haloperidol (Haldol) 10 mg STAT STAT IM 08/27/20 22:08 08/27/20 22:13 DC 08/27/20 22:25 Haloperidol (Haldol) 15 mg STAT STAT IM 09/29/20 21:43 09/29/20 21:46 DC 09/29/20 22:00 Home Med (Med Rec Complete!) ASDIRECTED XX 08/24/20 20:00 08/24/20 19:54 DC Hydroxyzine HCl (Atarax) 25 mg TID PO 09/05/20 16:00 09/07/20 06:57 DC 09/06/20 08:08 Hydroxyzine HCl (Atarax) 50 mg TID PO 09/07/20 09:00 09/11/20 10:26 DC 09/10/20 21:23 Hydroxyzine HCl (Atarax) 75 mg BID PO 09/13/20 09:00 10/01/20 08:39 DC 09/29/20 20:07 Hydroxyzine HCl (Atarax) 75 mg TID PO 09/11/20 16:00 09/13/20 11:11 DC 09/12/20 20:21 Hydroxyzine HCl (Atarax) 75 mg TID PO 09/13/20 09:00 09/13/20 11:16 DC Ibuprofen (Advil) 600 mg Q8HP PRN PO PAIN 08/26/20 19:00 09/25/20 18:59 DC 09/22/20 17:25 Lorazepam (Ativan) 1 mg STAT STAT IM 08/25/20 23:13 08/25/20 23:17 DC 08/25/20 23:26 Lorazepam (Ativan) 1 mg STAT STAT IM 08/26/20 21:32 08/26/20 21:34 DC 08/26/20 21:51 Lorazepam (Ativan) 2 mg STAT STAT IM 08/27/20 22:08 08/27/20 22:13 DC 08/27/20 22:24 Lorazepam (Ativan) 2 mg STAT STAT IM 08/27/20 23:04 08/27/20 23:09 DC 08/27/20 23:14 Lorazepam (Ativan) 2 mg STAT STAT IM 09/29/20 21:43 09/29/20 21:46 DC 09/29/20 22:00 Lorazepam (Ativan) 2 mg STAT STAT IV 08/27/20 23:00 08/27/20 23:09 DC Magnesium Hydroxide (Milk Of Magnesia) 30 ml DAILYPRN PRN PO CONSTIPATION 08/24/20 19:15 Olanzapine (ZyPREXA) 7.5 mg BID PO 09/12/20 09:00 09/12/20 08:05 DC Olanzapine (ZyPREXA) 10 mg BID PO 09/12/20 09:00 09/26/20 06:46 DC 09/23/20 22:16 Olanzapine (ZyPREXA) 15 mg BID PO 09/26/20 09:00 09/30/20 07:25 DC 09/28/20 19:40 Quetiapine Fumarate (SEROquel) 50 mg BIDP PO 09/30/20 17:15 09/30/20 17:43 DC Quetiapine Fumarate (SEROquel) 50 mg BIDP PRN PO anxiety 09/30/20 17:40 Topiramate (TopAMAX) 200 mg BID PO 08/25/20 21:00 10/01/20 08:39 DC 09/28/20 19:40 Trazodone HCl (Desyrel) 50 mg QHSP PRN PO INSOMNIA 08/24/20 19:15 10/01/20 08:39 DC 08/31/20 21:59 Allergies Coded Allergies: haloperidol (Verified Adverse Reaction, Intermediate, LOCKJAW, 01/03/20) Has required & received this med many time without EPS noted risperidone (Verified Adverse Reaction, Mild, PSORIASIS, 11/26/19) REBECA MAHONEY MD Oct 02, 2020 07:15
[2020-10-02] MEDS: CETIRIZINE (ZyrTEC) 10 MG TAB PO SCH (09:00)
[2020-10-02 13:00] VITALS: BP 129/76
--- NOTE | 2020-10-02 14:37 | IPNPDOC ---
Subjective Date Seen The patient was seen on 10/02/20. Subjective Chief Complaint/HPI I was notified by nurse that patient had ingested body lotion and shampoo. Patient currently has dyspepsia, but otherwise vitals have been stable. Contacted poison control. . Body lotion acts as a laxative. Main concern would be diarrhea and dehydration. Shampoo acts as an emetic. Main concern would be nausea/vomiting and dehydration. No need to monitor on telemetry at this time. Will order BMP to look for electrolyte abnormality or dehydration. Assessment /Plan Plan/VTE VTE Prophylaxis Ordered?: No (ambulation in [facility]) VS, I&O, 24H, Fishbone Vital Signs/I&O Vital Signs Date Time Temp Pulse Resp B/P (MAP) Pulse Ox O2 Delivery O2 Flow Rate FiO2 10/02/20 00:04 97.8 91 18 135/75 (95) 100 Room Air CHICA BOBBY DO Oct 02, 2020 14:37
[2020-10-02] MEDS ORDERED: ChlorproMAZINE 100 MG TABLET PO STA (14:54)
[2020-10-02 17:38] VITALS: BP 162/84
[2020-10-02 18:45] LABS: BLOOD UREA NITROGEN 15 MG/DL (7-18); CALCIUM LEVEL 9.1 MG/DL (8.5-10.1); CARBON DIOXIDE LEVEL 22 MEQ/L (21-32); CHLORIDE LEVEL 108 MEQ/L (98-107); CREATININE FOR GFR 0.62 MG/DL (0.55-1.30); GLUCOSE, FASTING 130 MG/DL (70-100); SODIUM LEVEL 140 MEQ/L (136-145)
--- NOTE | 2020-10-03 07:20 | MHIPNPDOC ---
[facility] Progress Note Progress Note DATE OF SERVICE: 10/03/20 HISTORY: Numerous overdose attempts, including soap toothpaste despite staff attempts to remove items last night. Patient required intramuscular injection for explosive behavior. Patient coded again yesterday required oral Thorazine. Spent rest of the afternoon telling staff. She would hurt herself. Placed on a one to one while awake. There were no episodes during the night Patient has refused all oral and IM Medications. They have been discontinued. Patient continues to blame staff for her outbursts despite fact that she has collected forks to scratch herself, swallow soap, swallow toothpaste. Patientrefusing all medications. They have been discontinued. The use of treatment over objection has been suggested. But if she is placed even that treatment would be of little to no use. VITAL SIGNS: See below. NEW TEST RESULTS: CURRENT MEDICATIONS: See below. MENTAL STATUS EXAMINATION: Patient is a 19-year old female, who is continuing to have frequent outbursts, and suicide gestures. Patient has a history of unsuccessful treatment frequent hospitalizations, frequent placement failures. Speech: Is no gross disturbance. Language skills are Yoly disturbance. Thought processes including: Unable to engage in consistent relationship easily offended and angered when not getting what she wants, even the smallest of situations. Thought content: As above. Abstract reasoning, and computation:. Poor abstraction. Description of associations:. No loose association. Description of abnormal or psychotic thoughts:. Thoughts are abnormal, but not psychotic. Judgment:, Poor. Insight:, Poor. Orientation: 3. Recent and remote memory: Intact. Attention span and concentration: Intact. Language:. No disturbance. Fund of knowledge: Reasonable. Mood: Labile. Affect:, Variable. DIAGNOSES: 1. Cyclothymic disorder. 2., Conduct disorder. 3..Borderline Personality traits. ASSESSMENT: Solution for this young lady may end up treatment over objection, but even if she is discharged and placed that will again resulted in recurrence when she stops her medication. At times the use of mood stabilizers and neuroleptics were shown to be of some use in decreasing her outbursts. The patient was noncompliant with medication. Patient was discussed with staff during the night and this morning and throughout the weekend and once again this morning. MANAGEMENT PLAN: As above. TIME SPENT:, 30 minutes. Vital Signs Vital Signs Date Time Temp Pulse Resp B/P (MAP) Pulse Ox O2 Delivery O2 Flow Rate FiO2 10/02/20 17:38 97.6 97 20 162/84 (110) 96 Room Air Laboratory Data 24H Labs Laboratory Tests 2 10/02/20 17:55: Anion Gap 10, Calcium Level 9.1 CBC/BMP Laboratory Tests 10/02/20 17:55 Current Medications Current Medications Medications (Trade) Dose Ordered Sig/Brielle Route PRN Reason Start Time Stop Time Status Last Admin Dose Admin Acetaminophen (Tylenol Tab) 650 mg Q6HP PRN PO HEADACHE or DISCOMFORT 08/24/20 19:15 09/27/20 23:59 Al Hydrox/Mg Hydrox/Simethicone (Mylanta) 30 ml Q4HP PRN PO HEARTBURN/INDIGESTION 08/24/20 19:15 09/22/20 21:55 Aripiprazole (AbiLIFY) 10 mg BID PO 08/29/20 09:00 09/07/20 06:57 DC 09/06/20 20:12 Aripiprazole (AbiLIFY) 10 mg TID PO 09/07/20 09:00 09/13/20 11:15 DC 09/12/20 20:21 Cefdinir (Omnicef) 300 mg BID PO 08/26/20 21:00 09/03/20 13:13 DC 09/03/20 08:39 Cetirizine HCl (ZyrTEC) 10 mg DAILY PO 09/01/20 09:00 10/01/20 08:48 Chlorpromazine HCl (Thorazine) 25 mg BID PO 08/25/20 21:00 08/29/20 09:28 DC 08/28/20 20:16 Chlorpromazine HCl (Thorazine) 25 mg TID PRN PO anxiety/agitation 08/25/20 17:45 10/01/20 08:39 DC 09/29/20 20:07 Chlorpromazine HCl (Thorazine) 50 mg STAT STAT IM 08/25/20 23:13 08/25/20 23:17 DC 08/25/20 23:26 Chlorpromazine HCl (Thorazine) 50 mg STAT STAT IM 08/26/20 21:32 08/26/20 21:34 DC 08/26/20 21:51 Chlorpromazine HCl (Thorazine) 100 mg BID PO 08/25/20 21:00 08/29/20 09:28 DC 08/28/20 20:16 Chlorpromazine HCl (Thorazine) 200 mg STAT STAT PO 10/02/20 14:54 10/02/20 14:56 DC 10/02/20 15:00 Diphenhydramine HCl (Benadryl) 50 mg STAT STAT IM 08/27/20 22:08 08/27/20 22:13 DC 08/27/20 22:24 Diphenhydramine HCl (Benadryl) 50 mg STAT STAT IM 08/27/20 23:04 08/27/20 23:09 DC 08/27/20 23:14 Diphenhydramine HCl (Benadryl) 50 mg STAT STAT IV 08/27/20 23:00 08/27/20 23:09 DC Diphenhydramine HCl (Benadryl) 100 mg STAT STAT IM 09/29/20 21:43 09/29/20 21:46 DC 09/29/20 22:00 Divalproex Sodium (Depakote) 250 mg BID PO 09/12/20 09:00 09/13/20 12:00 DC 09/13/20 11:24 Divalproex Sodium (Depakote) 250 mg DAILY PO 09/14/20 09:00 09/30/20 07:25 DC 09/23/20 09:20 Divalproex Sodium (Depakote) 500 mg QHS PO 09/13/20 21:00 10/01/20 08:39 DC 09/28/20 19:40 Haloperidol (Haldol) 5 mg STAT STAT IM 08/27/20 23:00 08/27/20 23:03 DC 08/27/20 23:14 Haloperidol (Haldol) 10 mg STAT STAT IM 08/27/20 22:08 08/27/20 22:13 DC 08/27/20 22:25 Haloperidol (Haldol) 15 mg STAT STAT IM 09/29/20 21:43 09/29/20 21:46 DC 09/29/20 22:00 Home Med (Med Rec Complete!) ASDIRECTED XX 08/24/20 20:00 08/24/20 19:54 DC Hydroxyzine HCl (Atarax) 25 mg TID PO 09/05/20 16:00 09/07/20 06:57 DC 09/06/20 08:08 Hydroxyzine HCl (Atarax) 50 mg TID PO 09/07/20 09:00 09/11/20 10:26 DC 09/10/20 21:23 Hydroxyzine HCl (Atarax) 75 mg BID PO 09/13/20 09:00 10/01/20 08:39 DC 09/29/20 20:07 Hydroxyzine HCl (Atarax) 75 mg TID PO 09/11/20 16:00 09/13/20 11:11 DC 09/12/20 20:21 Hydroxyzine HCl (Atarax) 75 mg TID PO 09/13/20 09:00 09/13/20 11:16 DC Ibuprofen (Advil) 600 mg Q8HP PRN PO PAIN 08/26/20 19:00 09/25/20 18:59 DC 09/22/20 17:25 Lorazepam (Ativan) 1 mg STAT STAT IM 08/25/20 23:13 08/25/20 23:17 DC 08/25/20 23:26 Lorazepam (Ativan) 1 mg STAT STAT IM 08/26/20 21:32 08/26/20 21:34 DC 08/26/20 21:51 Lorazepam (Ativan) 2 mg STAT STAT IM 08/27/20 22:08 08/27/20 22:13 DC 08/27/20 22:24 Lorazepam (Ativan) 2 mg STAT STAT IM 08/27/20 23:04 08/27/20 23:09 DC 08/27/20 23:14 Lorazepam (Ativan) 2 mg STAT STAT IM 09/29/20 21:43 09/29/20 21:46 DC 09/29/20 22:00 Lorazepam (Ativan) 2 mg STAT STAT IV 08/27/20 23:00 08/27/20 23:09 DC Magnesium Hydroxide (Milk Of Magnesia) 30 ml DAILYPRN PRN PO CONSTIPATION 08/24/20 19:15 Olanzapine (ZyPREXA) 7.5 mg BID PO 09/12/20 09:00 09/12/20 08:05 DC Olanzapine (ZyPREXA) 10 mg BID PO 09/12/20 09:00 09/26/20 06:46 DC 09/23/20 22:16 Olanzapine (ZyPREXA) 15 mg BID PO 09/26/20 09:00 09/30/20 07:25 DC 09/28/20 19:40 Quetiapine Fumarate (SEROquel) 50 mg BIDP PO 09/30/20 17:15 09/30/20 17:43 DC Quetiapine Fumarate (SEROquel) 50 mg BIDP PRN PO anxiety 09/30/20 17:40 Topiramate (TopAMAX) 200 mg BID PO 08/25/20 21:00 10/01/20 08:39 DC 09/28/20 19:40 Trazodone HCl (Desyrel) 50 mg QHSP PRN PO INSOMNIA 08/24/20 19:15 10/01/20 08:39 DC 08/31/20 21:59 Allergies Coded Allergies: haloperidol (Verified Adverse Reaction, Intermediate, LOCKJAW, 01/03/20) Has required & received this med many time without EPS noted risperidone (Verified Adverse Reaction, Mild, PSORIASIS, 11/26/19) REBECA MAHONEY MD Oct 03, 2020 07:20
[2020-10-03] MEDS: CETIRIZINE (ZyrTEC) 10 MG TAB PO SCH (09:00)
[2020-10-03] MEDS: MAALOX 30 ML SUSP *UDC PO PRN (13:13)
[2020-10-03 18:17] VITALS: BP 137/87
[2020-10-03] MEDS ORDERED: diphenhydrAMINE 50MG CAP PO STA ×2 (20:07→20:45)
[2020-10-03] MEDS ORDERED: LORazepam 2 MG TAB PO STA (20:07)
[2020-10-03] MEDS ORDERED: LORazepam 1 MG TAB PO STA (20:45)
[2020-10-03] MEDS ORDERED: diphenhydrAMINE 50MG/ML VIAL (J1200) IM STA (20:49)
[2020-10-03] MEDS ORDERED: LORazepam 2 MG/ML VIAL IM STA (20:49)
[2020-10-03] MEDS ORDERED: HALOPERIDOL 5MG/ML VIAL (J1630 PER 1) IM STA (20:49)
[2020-10-03] MEDS ORDERED: HALOPERIDOL 5MG/ML VIAL (J1630 PER 1) As Ordered ONE (20:53)
[2020-10-03] MEDS ORDERED: diphenhydrAMINE 50MG/ML VIAL (J1200) As Ordered ONE (20:54)
[2020-10-03] MEDS ORDERED: LORazepam 2 MG/ML VIAL As Ordered ONE (20:54)
--- NOTE | 2020-10-04 06:20 | MHIPNPDOC ---
[facility] Progress Note Progress Note DATE OF SERVICE: 10/04/20 HISTORY: Numerous overdose attempts, including soap toothpaste despite staff attempts to remove items last night. Patient required intramuscular injection for explosive behavior. Patient coded again yesterday required oral Thorazine. Spent rest of the afternoon telling staff. She would hurt herself. Placed on a one to one while awake. There were no episodes during the night Patient has refused all oral and IM Medications. They have been discontinued. Patient continues to blame staff for her outbursts despite fact that she has collected forks to scratch herself, swallow soap, swallow toothpaste. Patientrefusing all medications. They have been discontinued. Due to continued suicide gestures and outbursts pt was placed on room restriction. Despite this she found bottle tops she threatened to swallow and papers etc. She required prn medications. VITAL SIGNS: See below. NEW TEST RESULTS: CURRENT MEDICATIONS: See below. MENTAL STATUS EXAMINATION: Patient is a 19-year old female, who is continuing to have frequent outbursts, and suicide gestures. Patient has a history of unsuccessful treatment frequent hospitalizations, frequent placement failures. Speech: Is no gross disturbance. Language skills are Yoly disturbance. Thought processes including: Unable to engage in consistent relationship easily offended and angered when not getting what she wants, even the smallest of situations. Thought content: As above. Abstract reasoning, and computation:. Poor abstraction. Description of associations:. No loose association. Description of abnormal or psychotic thoughts:. Thoughts are abnormal, but not psychotic. Judgment:, Poor. Insight:, Poor. Orientation: 3. Recent and remote memory: Intact. Attention span and concentration: Intact. Language:. No disturbance. Fund of knowledge: Reasonable. Mood: Labile. Affect:, Variable. DIAGNOSES: 1. Cyclothymic disorder. 2., Conduct disorder. 3..Borderline Personality traits. ASSESSMENT: Solution for this young lady may end up treatment over objection, but even if she is discharged and placed that will again resulted in recurrence when she stops her medication. At times the use of mood stabilizers and neuroleptics were shown to be of some use in decreasing her outbursts. The patient was noncompliant with medication. Patient was discussed with staff during the night and this morning and throughout the weekend and once again this morning. Once again discussed this morning with staff. ASSESSMENT:as above MANAGEMENT PLAN:Consistent treatment to prevent pt from harming self. TIME SPENT: 25 minutes. Vital Signs Vital Signs Date Time Temp Pulse Resp B/P (MAP) Pulse Ox O2 Delivery O2 Flow Rate FiO2 10/03/20 18:17 98.3 85 16 137/87 (104) Room Air 10/02/20 17:38 96 Current Medications Current Medications Medications (Trade) Dose Ordered Sig/Brielle Route PRN Reason Start Time Stop Time Status Last Admin Dose Admin Acetaminophen (Tylenol Tab) 650 mg Q6HP PRN PO HEADACHE or DISCOMFORT 08/24/20 19:15 09/27/20 23:59 Al Hydrox/Mg Hydrox/Simethicone (Mylanta) 30 ml Q4HP PRN PO HEARTBURN/INDIGESTION 08/24/20 19:15 10/03/20 13:13 Aripiprazole (AbiLIFY) 10 mg BID PO 08/29/20 09:00 09/07/20 06:57 DC 09/06/20 20:12 Aripiprazole (AbiLIFY) 10 mg TID PO 09/07/20 09:00 09/13/20 11:15 DC 09/12/20 20:21 Cefdinir (Omnicef) 300 mg BID PO 08/26/20 21:00 09/03/20 13:13 DC 09/03/20 08:39 Cetirizine HCl (ZyrTEC) 10 mg DAILY PO 09/01/20 09:00 10/01/20 08:48 Chlorpromazine HCl (Thorazine) 25 mg BID PO 08/25/20 21:00 08/29/20 09:28 DC 08/28/20 20:16 Chlorpromazine HCl (Thorazine) 25 mg TID PRN PO anxiety/agitation 08/25/20 17:45 10/01/20 08:39 DC 09/29/20 20:07 Chlorpromazine HCl (Thorazine) 50 mg STAT STAT IM 08/25/20 23:13 08/25/20 23:17 DC 08/25/20 23:26 Chlorpromazine HCl (Thorazine) 50 mg STAT STAT IM 08/26/20 21:32 08/26/20 21:34 DC 08/26/20 21:51 Chlorpromazine HCl (Thorazine) 100 mg BID PO 08/25/20 21:00 08/29/20 09:28 DC 08/28/20 20:16 Chlorpromazine HCl (Thorazine) 200 mg STAT STAT PO 10/02/20 14:54 10/02/20 14:56 DC 10/02/20 15:00 Diphenhydramine HCl (Benadryl) 50 mg STAT STAT IM 08/27/20 22:08 08/27/20 22:13 DC 08/27/20 22:24 Diphenhydramine HCl (Benadryl) 50 mg STAT STAT IM 08/27/20 23:04 08/27/20 23:09 DC 08/27/20 23:14 Diphenhydramine HCl (Benadryl) 50 mg STAT STAT IM 10/03/20 20:49 10/03/20 20:52 DC 10/03/20 20:56 Diphenhydramine HCl (Benadryl) 50 mg STAT STAT IV 08/27/20 23:00 08/27/20 23:09 DC Diphenhydramine HCl (Benadryl) 50 mg STAT STAT PO 10/03/20 20:07 10/03/20 20:53 DC 10/03/20 20:13 Diphenhydramine HCl (Benadryl) 50 mg STAT STAT PO 10/03/20 20:45 10/03/20 20:46 Cancel Diphenhydramine HCl (Benadryl) 100 mg STAT STAT IM 09/29/20 21:43 09/29/20 21:46 DC 09/29/20 22:00 Divalproex Sodium (Depakote) 250 mg BID PO 09/12/20 09:00 09/13/20 12:00 DC 09/13/20 11:24 Divalproex Sodium (Depakote) 250 mg DAILY PO 09/14/20 09:00 09/30/20 07:25 DC 09/23/20 09:20 Divalproex Sodium (Depakote) 500 mg QHS PO 09/13/20 21:00 10/01/20 08:39 DC 09/28/20 19:40 Haloperidol (Haldol) 5 mg STAT STAT IM 08/27/20 23:00 08/27/20 23:03 DC 08/27/20 23:14 Haloperidol (Haldol) 10 mg STAT STAT IM 08/27/20 22:08 08/27/20 22:13 DC 08/27/20 22:25 Haloperidol (Haldol) 10 mg STAT STAT IM 10/03/20 20:49 10/03/20 20:52 DC 10/03/20 20:57 Haloperidol (Haldol) 10 mg STAT STAT PO 10/03/20 20:07 10/03/20 20:53 DC 10/03/20 20:12 Haloperidol (Haldol) 10 mg STAT STAT PO 10/03/20 20:45 10/03/20 20:46 Cancel Haloperidol (Haldol) 15 mg STAT STAT IM 09/29/20 21:43 09/29/20 21:46 DC 09/29/20 22:00 Home Med (Med Rec Complete!) ASDIRECTED XX 08/24/20 20:00 08/24/20 19:54 DC Hydroxyzine HCl (Atarax) 25 mg TID PO 09/05/20 16:00 09/07/20 06:57 DC 09/06/20 08:08 Hydroxyzine HCl (Atarax) 50 mg TID PO 09/07/20 09:00 09/11/20 10:26 DC 09/10/20 21:23 Hydroxyzine HCl (Atarax) 75 mg BID PO 09/13/20 09:00 10/01/20 08:39 DC 09/29/20 20:07 Hydroxyzine HCl (Atarax) 75 mg TID PO 09/11/20 16:00 09/13/20 11:11 DC 09/12/20 20:21 Hydroxyzine HCl (Atarax) 75 mg TID PO 09/13/20 09:00 09/13/20 11:16 DC Ibuprofen (Advil) 600 mg Q8HP PRN PO PAIN 08/26/20 19:00 09/25/20 18:59 DC 09/22/20 17:25 Lorazepam (Ativan) 1 mg STAT STAT IM 08/25/20 23:13 08/25/20 23:17 DC 08/25/20 23:26 Lorazepam (Ativan) 1 mg STAT STAT IM 08/26/20 21:32 08/26/20 21:34 DC 08/26/20 21:51 Lorazepam (Ativan) 1 mg STAT STAT IM 10/03/20 20:49 10/03/20 20:52 DC 10/03/20 20:56 Lorazepam (Ativan) 1 mg STAT STAT PO 10/03/20 20:45 10/03/20 20:46 Cancel Lorazepam (Ativan) 2 mg STAT STAT IM 08/27/20 22:08 08/27/20 22:13 DC 08/27/20 22:24 Lorazepam (Ativan) 2 mg STAT STAT IM 08/27/20 23:04 08/27/20 23:09 DC 08/27/20 23:14 Lorazepam (Ativan) 2 mg STAT STAT IM 09/29/20 21:43 09/29/20 21:46 DC 09/29/20 22:00 Lorazepam (Ativan) 2 mg STAT STAT IV 08/27/20 23:00 08/27/20 23:09 DC Lorazepam (Ativan) 2 mg STAT STAT PO 10/03/20 20:07 10/03/20 20:09 DC 10/03/20 20:12 Magnesium Hydroxide (Milk Of Magnesia) 30 ml DAILYPRN PRN PO CONSTIPATION 08/24/20 19:15 Olanzapine (ZyPREXA) 7.5 mg BID PO 09/12/20 09:00 09/12/20 08:05 DC Olanzapine (ZyPREXA) 10 mg BID PO 09/12/20 09:00 09/26/20 06:46 DC 09/23/20 22:16 Olanzapine (ZyPREXA) 15 mg BID PO 09/26/20 09:00 09/30/20 07:25 DC 09/28/20 19:40 Quetiapine Fumarate (SEROquel) 50 mg BIDP PO 09/30/20 17:15 09/30/20 17:43 DC Quetiapine Fumarate (SEROquel) 50 mg BIDP PRN PO anxiety 09/30/20 17:40 Topiramate (TopAMAX) 200 mg BID PO 08/25/20 21:00 10/01/20 08:39 DC 09/28/20 19:40 Trazodone HCl (Desyrel) 50 mg QHSP PRN PO INSOMNIA 08/24/20 19:15 10/01/20 08:39 DC 08/31/20 21:59 Allergies Coded Allergies: haloperidol (Verified Adverse Reaction, Intermediate, LOCKJAW, 01/03/20) Has required & received this med many time without EPS noted risperidone (Verified Adverse Reaction, Mild, PSORIASIS, 11/26/19) REBECA MAHONEY MD Oct 04, 2020 06:20
[2020-10-04] MEDS: CETIRIZINE (ZyrTEC) 10 MG TAB PO SCH (09:00)
[2020-10-04] MEDS ORDERED: HALOPERIDOL 5MG/ML VIAL (J1630 PER 1) IM STA ×2 (19:55→20:33)
[2020-10-04] MEDS ORDERED: LORazepam 2 MG/ML VIAL IM STA ×2 (19:55→20:33)
[2020-10-04] MEDS ORDERED: diphenhydrAMINE 50MG/ML VIAL (J1200) IM STA ×2 (19:55→20:33)
[2020-10-04 20:15] VITALS: BP 147/66
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
[2020-10-04 22:00] VITALS: BP 120/67
[2020-10-04 22:30] VITALS: BP 136/88
[2020-10-04 22:45] VITALS: BP 146/83
[2020-10-05] VITALS (11 sets, daily range): BP systolic 102–176; BP diastolic 52–85
[2020-10-05] MEDS: CETIRIZINE (ZyrTEC) 10 MG TAB PO SCH (09:00)
[2020-10-05] MEDS ORDERED: diphenhydrAMINE 50MG/ML VIAL (J1200) IM STA ×3 (17:07→21:19)
[2020-10-05] MEDS ORDERED: LORazepam 2 MG/ML VIAL IM STA ×3 (17:07→21:19)
[2020-10-05] MEDS ORDERED: HALOPERIDOL 5MG/ML VIAL (J1630 PER 1) IM STA ×3 (17:07→21:19)
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
[2020-10-06] VITALS: BP 149/73
[2020-10-06 00:15] VITALS: BP 120/53
[2020-10-06 00:30] VITALS: BP 117/56
[2020-10-06 00:45] VITALS: BP_SYST 120; BP_SYST 145; BP_DIAS 53; BP_DIAS 64
[2020-10-06 01:00] VITALS: BP 112/55
[2020-10-06 01:15] VITALS: BP 112/53
[2020-10-06] MEDS: CETIRIZINE (ZyrTEC) 10 MG TAB PO SCH (09:00)
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
[2020-10-06] MEDS: QUEtiapine FUMARATE 50MG TAB PO PRN (16:09)
[2020-10-06] MEDS ORDERED: QUEtiapine FUMARATE 50MG TAB PO ONE (20:00)
[2020-10-07] MEDS: CETIRIZINE (ZyrTEC) 10 MG TAB PO SCH (09:05)
[2020-10-07 16:31] VITALS: BP 132/60
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
[2020-10-07] MEDS: QUEtiapine FUMARATE 50MG TAB PO PRN (22:07)
[2020-10-07] MEDS ORDERED: chlorproMAZINE 25 MG TABLET PO ONE (22:40)
[2020-10-07] MEDS ORDERED: diphenhydrAMINE 25MG CAP PO ONE (22:40)
[2020-10-08] MEDS: CETIRIZINE (ZyrTEC) 10 MG TAB PO SCH ×2 (09:00→20:14)
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
[2020-10-08] MEDS: QUEtiapine FUMARATE 50MG TAB PO SCH ×2 (12:53→20:14)
[2020-10-08] MEDS: PROPRANOLOL 10 MG TAB PO SCH ×2 (12:55→20:14)
[2020-10-08 12:56] VITALS: BP 140/76
[2020-10-08] MEDS ORDERED: VANICREAM MOISTURIZING SKIN CREAM 113GM TUBE TOP PRN (19:40)
--- NOTE | 2020-10-08 19:49 | IPNPDOC ---
Date Seen The patient was seen on 10/08/20. Progress Note Called by RN for a pruritic and burning rash after showing. Patient was seen and examined at bedside. Patient states that she has had a pruritic and burning rash on her legs for the past 3 days, that worsens after showering. She does report a hx of seasonal allergies and take cetirizine once daily at this time. She has no hx of eczema, or asthma. She denies chest pain, shortness of breath, wheezing, cough, fevers or chills. Vitals reviewed, stable. BMP available from 10/02/20, BG 130, otherwise no acute abnormalities. CMP from 08/24/20, showing mild ALP elevation. 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 There is no sharp erythematous demarcation, or otherwise ulceration. Given association with showering, possibly cholinergic urticaria vs eczema. Will increase cetirizine dosing to 10 mg BID, add eucerin lotion. Option to add loratidine if additional cetirizine dosing is not helping. No CBC since 08/24/20. Will order CBC and CMP for AM. VS, I&O, 24H, Fishbone Vital Signs/I&O Vital Signs Date Time Temp Pulse Resp B/P (MAP) Pulse Ox O2 Delivery O2 Flow Rate FiO2 10/08/20 12:56 97.8 100 18 140/76 (97) 96 Room Air JASMYNE CONNOR MD Oct 08, 2020 19:49
[2020-10-09] MEDS: CETIRIZINE (ZyrTEC) 10 MG TAB PO SCH ×2 (09:00→21:14)
[2020-10-09] MEDS: QUEtiapine FUMARATE 50MG TAB PO SCH ×2 (09:00→21:14)
[2020-10-09] MEDS: PROPRANOLOL 10 MG TAB PO SCH ×2 (09:00→21:14)
--- NOTE | 2020-10-09 09:06 | MHIPN ---
[facility] PROGRESS NOTE DATE: 10/08/2020 SUBJECTIVE: "I feel better, and I want to be allowed to go to groups." OBJECTIVE: Patient has a long history of mental illness with multiple temper tantrums, behavioral problems, and several suicide attempts. Has been in and out of the hospitals, being refused by most hospitals. Has been in seclusion several times on the unit during this admission. Currently somewhat calmer. Her coping skills are helping her to some extent. MENTAL STATUS EXAMINATION: Casually dressed with clean clothes, cooperative. Makes good eye contact. Speech, rate, rhythm, volume are good. Mood is anxious. Affect is full range. Thought process linear, goal directed. Thought content: Denied any suicidal or homicidal ideas. Denied any delusions. Denied auditory or visual hallucinations. She is oriented to time, place, and person. Memory is intact. Insight and judgment are poor. VITAL SIGNS: Temperature 97.8, pulse 100, respirations 18, blood pressure is 140/76, pulse oximetry 96. MEDICATIONS: - quetiapine 50 mg twice a day - propranolol 10 mg twice a day for akathisia DIAGNOSES: 1. Bipolar 1 disorder, rule out cyclothymia. 2. Borderline personality disorder. PLAN: Continue current medications. Consider taking off one-to-one observation if patient complies with the direction. TIME SPENT: 25 minutes. ROSSY
--- NOTE | 2020-10-09 13:58 | MHIPNPDOC ---
[facility] Progress Note Progress Note DATE OF SERVICE: 10/09/20 SUBJECTIVE: "I feel better, and I want to be allowed to go to groups." OBJECTIVE: Patient has a long history of mental illness with multiple temper tantrums, behavioral problems, and several suicide attempts. Has been in and out of the hospitals, being refused by most hospitals. Has been in seclusion several times on the unit during this admission. Currently somewhat calmer. The coping skills are helping to some extent. Her 1:1 observation is taken off She is attending groups.Started taking medications. MENTAL STATUS EXAMINATION: Casually dressed with clean clothes, cooperative. Makes good eye contact. Speech, rate, rhythm, volume are good. Mood is anxious. Affect is full range. Thought process linear, goal directed. Thought content: Denied any suicidal or homicidal ideas. Denied any delusions. Denied auditory or visual hallucinations. She is oriented to time, place, and person. Memory is intact. Insight and judgment are poor. VITAL SIGNS: Temperature 97.8, pulse 100, respirations 18, blood pressure is 140/76, pulse oximetry 96. MEDICATIONS: - quetiapine 50 mg twice a day - propranolol 10 mg twice a day for akathisia DIAGNOSES: 1. Cyclothymia. 2. Borderline personality disorder. PLAN: Continue current medications. Consider taking off one-to-one observation if patient complies with the direction. TIME SPENT: 25 minutes. Vital Signs Vital Signs Date Time Temp Pulse Resp B/P (MAP) Pulse Ox O2 Delivery O2 Flow Rate FiO2 10/09/20 08:06 Room Air 10/08/20 12:56 97.8 100 18 140/76 (97) 96 Current Medications Current Medications Medications (Trade) Dose Ordered Sig/Brielle Route PRN Reason Start Time Stop Time Status Last Admin Dose Admin Acetaminophen (Tylenol Tab) 650 mg Q6HP PRN PO HEADACHE or DISCOMFORT 08/24/20 19:15 09/27/20 23:59 Al Hydrox/Mg Hydrox/Simethicone (Mylanta) 30 ml Q4HP PRN PO HEARTBURN/INDIGESTION 08/24/20 19:15 10/03/20 13:13 Aripiprazole (AbiLIFY) 10 mg BID PO 08/29/20 09:00 09/07/20 06:57 DC 09/06/20 20:12 Aripiprazole (AbiLIFY) 10 mg TID PO 09/07/20 09:00 09/13/20 11:15 DC 09/12/20 20:21 Cefdinir (Omnicef) 300 mg BID PO 08/26/20 21:00 09/03/20 13:13 DC 09/03/20 08:39 Cetirizine HCl (ZyrTEC) 10 mg BID PO 10/08/20 21:00 10/08/20 20:14 Cetirizine HCl (ZyrTEC) 10 mg DAILY PO 09/01/20 09:00 10/08/20 19:39 DC 10/07/20 09:05 Chlorpromazine HCl (Thorazine) 25 mg BID PO 08/25/20 21:00 08/29/20 09:28 DC 08/28/20 20:16 Chlorpromazine HCl (Thorazine) 25 mg TID PRN PO anxiety/agitation 08/25/20 17:45 10/01/20 08:39 DC 09/29/20 20:07 Chlorpromazine HCl (Thorazine) 50 mg STAT STAT IM 08/25/20 23:13 08/25/20 23:17 DC 08/25/20 23:26 Chlorpromazine HCl (Thorazine) 50 mg STAT STAT IM 08/26/20 21:32 08/26/20 21:34 DC 08/26/20 21:51 Chlorpromazine HCl (Thorazine) 100 mg BID PO 08/25/20 21:00 08/29/20 09:28 DC 08/28/20 20:16 Chlorpromazine HCl (Thorazine) 200 mg STAT STAT PO 10/02/20 14:54 10/02/20 14:56 DC 10/02/20 15:00 Diphenhydramine HCl (Benadryl) 50 mg STAT STAT IM 08/27/20 22:08 08/27/20 22:13 DC 08/27/20 22:24 Diphenhydramine HCl (Benadryl) 50 mg STAT STAT IM 08/27/20 23:04 08/27/20 23:09 DC 08/27/20 23:14 Diphenhydramine HCl (Benadryl) 50 mg STAT STAT IM 10/03/20 20:49 10/03/20 20:52 DC 10/03/20 20:56 Diphenhydramine HCl (Benadryl) 50 mg STAT STAT IM 10/04/20 19:55 10/04/20 19:57 DC 10/04/20 20:02 Diphenhydramine HCl (Benadryl) 50 mg STAT STAT IM 10/04/20 20:33 10/04/20 20:34 DC 10/04/20 20:40 Diphenhydramine HCl (Benadryl) 50 mg STAT STAT IM 10/05/20 17:07 10/05/20 17:13 DC 10/05/20 17:27 Diphenhydramine HCl (Benadryl) 50 mg STAT STAT IM 10/05/20 17:56 10/05/20 18:01 DC 10/05/20 18:18 Diphenhydramine HCl (Benadryl) 50 mg STAT STAT IM 10/05/20 21:19 10/05/20 21:21 DC 10/05/20 21:31 Diphenhydramine HCl (Benadryl) 50 mg STAT STAT IV 08/27/20 23:00 08/27/20 23:09 DC Diphenhydramine HCl (Benadryl) 50 mg STAT STAT PO 10/03/20 20:07 10/03/20 20:53 DC 10/03/20 20:13 Diphenhydramine HCl (Benadryl) 50 mg STAT STAT PO 10/03/20 20:45 10/03/20 20:46 Cancel Diphenhydramine HCl (Benadryl) 100 mg STAT STAT IM 09/29/20 21:43 09/29/20 21:46 DC 09/29/20 22:00 Divalproex Sodium (Depakote) 250 mg BID PO 09/12/20 09:00 09/13/20 12:00 DC 09/13/20 11:24 Divalproex Sodium (Depakote) 250 mg DAILY PO 09/14/20 09:00 09/30/20 07:25 DC 09/23/20 09:20 Divalproex Sodium (Depakote) 500 mg QHS PO 09/13/20 21:00 10/01/20 08:39 DC 09/28/20 19:40 Emollient Cream (Vanicream) PLEASE APPLY TO BOTH L... BIDP PRN TOP ITCHING/SWELLING 10/08/20 19:40 Haloperidol (Haldol) 5 mg STAT STAT IM 08/27/20 23:00 08/27/20 23:03 DC 08/27/20 23:14 Haloperidol (Haldol) 10 mg STAT STAT IM 08/27/20 22:08 08/27/20 22:13 DC 08/27/20 22:25 Haloperidol (Haldol) 10 mg STAT STAT IM 10/03/20 20:49 10/03/20 20:52 DC 10/03/20 20:57 Haloperidol (Haldol) 10 mg STAT STAT IM 10/04/20 19:55 10/04/20 19:57 DC 10/04/20 20:02 Haloperidol (Haldol) 10 mg STAT STAT IM 10/04/20 20:33 10/04/20 20:34 DC 10/04/20 20:40 Haloperidol (Haldol) 10 mg STAT STAT IM 10/05/20 17:07 10/05/20 17:13 DC 10/05/20 17:27 Haloperidol (Haldol) 10 mg STAT STAT IM 10/05/20 17:56 10/05/20 18:01 DC 10/05/20 18:18 Haloperidol (Haldol) 10 mg STAT STAT IM 10/05/20 21:19 10/05/20 21:21 DC 10/05/20 21:31 Haloperidol (Haldol) 10 mg STAT STAT PO 10/03/20 20:07 10/03/20 20:53 DC 10/03/20 20:12 Haloperidol (Haldol) 10 mg STAT STAT PO 10/03/20 20:45 10/03/20 20:46 Cancel Haloperidol (Haldol) 15 mg STAT STAT IM 09/29/20 21:43 09/29/20 21:46 DC 09/29/20 22:00 Home Med (Med Rec Complete!) ASDIRECTED XX 08/24/20 20:00 08/24/20 19:54 DC Hydroxyzine HCl (Atarax) 25 mg TID PO 09/05/20 16:00 09/07/20 06:57 DC 09/06/20 08:08 Hydroxyzine HCl (Atarax) 50 mg TID PO 09/07/20 09:00 09/11/20 10:26 DC 09/10/20 21:23 Hydroxyzine HCl (Atarax) 75 mg BID PO 09/13/20 09:00 10/01/20 08:39 DC 09/29/20 20:07 Hydroxyzine HCl (Atarax) 75 mg TID PO 09/11/20 16:00 09/13/20 11:11 DC 09/12/20 20:21 Hydroxyzine HCl (Atarax) 75 mg TID PO 09/13/20 09:00 09/13/20 11:16 DC Ibuprofen (Advil) 600 mg Q8HP PRN PO PAIN 08/26/20 19:00 09/25/20 18:59 DC 09/22/20 17:25 Lorazepam (Ativan) 1 mg STAT STAT IM 08/25/20 23:13 08/25/20 23:17 DC 08/25/20 23:26 Lorazepam (Ativan) 1 mg STAT STAT IM 08/26/20 21:32 08/26/20 21:34 DC 08/26/20 21:51 Lorazepam (Ativan) 1 mg STAT STAT IM 10/03/20 20:49 10/03/20 20:52 DC 10/03/20 20:56 Lorazepam (Ativan) 1 mg STAT STAT PO 10/03/20 20:45 10/03/20 20:46 Cancel Lorazepam (Ativan) 2 mg STAT STAT IM 08/27/20 22:08 08/27/20 22:13 DC 08/27/20 22:24 Lorazepam (Ativan) 2 mg STAT STAT IM 08/27/20 23:04 08/27/20 23:09 DC 08/27/20 23:14 Lorazepam (Ativan) 2 mg STAT STAT IM 09/29/20 21:43 09/29/20 21:46 DC 09/29/20 22:00 Lorazepam (Ativan) 2 mg STAT STAT IM 10/04/20 19:55 10/04/20 19:57 DC 10/04/20 20:02 Lorazepam (Ativan) 2 mg STAT STAT IM 10/04/20 20:33 10/04/20 20:34 DC 10/04/20 20:40 Lorazepam (Ativan) 2 mg STAT STAT IM 10/05/20 17:07 10/05/20 17:13 DC 10/05/20 17:27 Lorazepam (Ativan) 2 mg STAT STAT IM 10/05/20 17:56 10/05/20 18:01 DC 10/05/20 18:18 Lorazepam (Ativan) 2 mg STAT STAT IM 10/05/20 21:19 10/05/20 21:21 DC 10/05/20 21:31 Lorazepam (Ativan) 2 mg STAT STAT IV 08/27/20 23:00 08/27/20 23:09 DC Lorazepam (Ativan) 2 mg STAT STAT PO 10/03/20 20:07 10/03/20 20:09 DC 10/03/20 20:12 Magnesium Hydroxide (Milk Of Magnesia) 30 ml DAILYPRN PRN PO CONSTIPATION 08/24/20 19:15 Olanzapine (ZyPREXA) 7.5 mg BID PO 09/12/20 09:00 09/12/20 08:05 DC Olanzapine (ZyPREXA) 10 mg BID PO 09/12/20 09:00 09/26/20 06:46 DC 09/23/20 22:16 Olanzapine (ZyPREXA) 15 mg BID PO 09/26/20 09:00 09/30/20 07:25 DC 09/28/20 19:40 Propranolol HCl (Inderal) 10 mg BID PO 10/08/20 09:00 10/08/20 20:14 Quetiapine Fumarate (SEROquel) 50 mg BID PO 10/08/20 09:00 10/08/20 20:14 Quetiapine Fumarate (SEROquel) 50 mg BIDP PO 09/30/20 17:15 09/30/20 17:43 DC Quetiapine Fumarate (SEROquel) 50 mg BIDP PRN PO anxiety 09/30/20 17:40 10/08/20 12:19 DC 10/07/20 22:07 Topiramate (TopAMAX) 200 mg BID PO 08/25/20 21:00 10/01/20 08:39 DC 09/28/20 19:40 Trazodone HCl (Desyrel) 50 mg QHSP PRN PO INSOMNIA 08/24/20 19:15 10/01/20 08:39 DC 08/31/20 21:59 Allergies Coded Allergies: haloperidol (Verified Adverse Reaction, Intermediate, LOCKJAW, 01/03/20) Has required & received this med many time without EPS noted risperidone (Verified Adverse Reaction, Mild, PSORIASIS, 11/26/19) IVIS HOPPER MD Oct 09, 2020 13:58
[2020-10-09] MEDS: ACETAMINOPHEN TAB 650MG DOSE (2X325MG) PO PRN (15:24)
[2020-10-09 16:20] VITALS: BP 127/73
[2020-10-09 23:15] VITALS: BP 129/68
[2020-10-09] MEDS ORDERED: diphenhydrAMINE 25MG CAP PO ONE (23:30)
[2020-10-10 00:26] LABS: CK-MB VALUE MASS 2.3 NG/ML (<3.6); CPK CREATINE PHOSPHOKINASE 213 U/L (26-192); MB/CK RELATIVE INDEX 1.08 (< OR =4); TROPONIN I < 0.02 NG/ML (< 0.10)
[2020-10-10] MEDS: CETIRIZINE (ZyrTEC) 10 MG TAB PO SCH ×2 (08:00→21:22)
[2020-10-10] MEDS: PROPRANOLOL 10 MG TAB PO SCH ×2 (08:00→21:23)
[2020-10-10] MEDS: QUEtiapine FUMARATE 50MG TAB PO SCH ×2 (08:00→21:22)
[2020-10-10] MEDS ORDERED: NICOTINE 14 MG/24 HR TRANSDERMAL TD STA (11:31)
--- NOTE | 2020-10-10 11:51 | MHIPNPDOC ---
[facility] Progress Note Progress Note DATE OF SERVICE: 10/10/20 SUBJECTIVE: Pt reports she is doing better, Complained of chest pain yesterday, OBJECTIVE: Patient has a long history of mental illness with multiple temper tantrums, behavioral problems, and several suicide attempts. Has been in and out of the hospitals, being refused by most hospitals. Has been in seclusion several times on the unit during this admission. Currently somewhat calmer. The coping skills are helping to some extent. Her 1:1 observation is taken off She is attending groups.Started taking medications.Labs are normal Troponin I was in normal limits. MENTAL STATUS EXAMINATION: Casually dressed with clean clothes, cooperative. Makes good eye contact. Speech, rate, rhythm, volume are good. Mood is anxious. Affect is full range. Thought process linear, goal directed. Thought content: Denied any suicidal or homicidal ideas. Denied any delusions. Denied auditory or visual hallucinations. She is oriented to time, place, and person. Memory is intact. Insight and judgment are poor. VITAL SIGNS: Temperature 97.8, pulse 100, respirations 18, blood pressure is 140/76, pulse oximetry 96. MEDICATIONS: - quetiapine 50 mg twice a day - propranolol 10 mg twice a day for akathisia DIAGNOSES: 1. Cyclothymia. 2. Borderline personality disorder. PLAN: Continue current medications.Pt doing well, no restrictions necessary.Will be closely monitored. TIME SPENT: 25 minutes. VITAL SIGNS: See below. Vital Signs Vital Signs Date Time Temp Pulse Resp B/P (MAP) Pulse Ox O2 Delivery O2 Flow Rate FiO2 10/10/20 10:06 Room Air 10/10/20 08:00 71 124/79 10/09/20 23:15 98.1 18 97 Laboratory Data 24H Labs Laboratory Tests 2 10/09/20 23:48: Total Creatine Kinase 213H, Creatine Kinase MB 2.3, Creatine Kinase MB Relative Index 1.08, Troponin I < 0.02 Current Medications Current Medications Medications (Trade) Dose Ordered Sig/Brielle Route PRN Reason Start Time Stop Time Status Last Admin Dose Admin Acetaminophen (Tylenol Tab) 650 mg Q6HP PRN PO HEADACHE or DISCOMFORT 08/24/20 19:15 10/09/20 15:24 Al Hydrox/Mg Hydrox/Simethicone (Mylanta) 30 ml Q4HP PRN PO HEARTBURN/INDIGESTION 08/24/20 19:15 10/03/20 13:13 Aripiprazole (AbiLIFY) 10 mg BID PO 08/29/20 09:00 09/07/20 06:57 DC 09/06/20 20:12 Aripiprazole (AbiLIFY) 10 mg TID PO 09/07/20 09:00 09/13/20 11:15 DC 09/12/20 20:21 Cefdinir (Omnicef) 300 mg BID PO 08/26/20 21:00 09/03/20 13:13 DC 09/03/20 08:39 Cetirizine HCl (ZyrTEC) 10 mg BID PO 10/08/20 21:00 10/10/20 08:00 Cetirizine HCl (ZyrTEC) 10 mg DAILY PO 09/01/20 09:00 10/08/20 19:39 DC 10/07/20 09:05 Chlorpromazine HCl (Thorazine) 25 mg BID PO 08/25/20 21:00 08/29/20 09:28 DC 08/28/20 20:16 Chlorpromazine HCl (Thorazine) 25 mg TID PRN PO anxiety/agitation 08/25/20 17:45 10/01/20 08:39 DC 09/29/20 20:07 Chlorpromazine HCl (Thorazine) 50 mg STAT STAT IM 08/25/20 23:13 08/25/20 23:17 DC 08/25/20 23:26 Chlorpromazine HCl (Thorazine) 50 mg STAT STAT IM 08/26/20 21:32 08/26/20 21:34 DC 08/26/20 21:51 Chlorpromazine HCl (Thorazine) 100 mg BID PO 08/25/20 21:00 08/29/20 09:28 DC 08/28/20 20:16 Chlorpromazine HCl (Thorazine) 200 mg STAT STAT PO 10/02/20 14:54 10/02/20 14:56 DC 10/02/20 15:00 Diphenhydramine HCl (Benadryl) 50 mg STAT STAT IM 08/27/20 22:08 08/27/20 22:13 DC 08/27/20 22:24 Diphenhydramine HCl (Benadryl) 50 mg STAT STAT IM 08/27/20 23:04 08/27/20 23:09 DC 08/27/20 23:14 Diphenhydramine HCl (Benadryl) 50 mg STAT STAT IM 10/03/20 20:49 10/03/20 20:52 DC 10/03/20 20:56 Diphenhydramine HCl (Benadryl) 50 mg STAT STAT IM 10/04/20 19:55 10/04/20 19:57 DC 10/04/20 20:02 Diphenhydramine HCl (Benadryl) 50 mg STAT STAT IM 10/04/20 20:33 10/04/20 20:34 DC 10/04/20 20:40 Diphenhydramine HCl (Benadryl) 50 mg STAT STAT IM 10/05/20 17:07 10/05/20 17:13 DC 10/05/20 17:27 Diphenhydramine HCl (Benadryl) 50 mg STAT STAT IM 10/05/20 17:56 10/05/20 18:01 DC 10/05/20 18:18 Diphenhydramine HCl (Benadryl) 50 mg STAT STAT IM 10/05/20 21:19 10/05/20 21:21 DC 10/05/20 21:31 Diphenhydramine HCl (Benadryl) 50 mg STAT STAT IV 08/27/20 23:00 08/27/20 23:09 DC Diphenhydramine HCl (Benadryl) 50 mg STAT STAT PO 10/03/20 20:07 10/03/20 20:53 DC 10/03/20 20:13 Diphenhydramine HCl (Benadryl) 50 mg STAT STAT PO 10/03/20 20:45 10/03/20 20:46 Cancel Diphenhydramine HCl (Benadryl) 100 mg STAT STAT IM 09/29/20 21:43 09/29/20 21:46 DC 09/29/20 22:00 Divalproex Sodium (Depakote) 250 mg BID PO 09/12/20 09:00 09/13/20 12:00 DC 09/13/20 11:24 Divalproex Sodium (Depakote) 250 mg DAILY PO 09/14/20 09:00 09/30/20 07:25 DC 09/23/20 09:20 Divalproex Sodium (Depakote) 500 mg QHS PO 09/13/20 21:00 10/01/20 08:39 DC 09/28/20 19:40 Emollient Cream (Vanicream) PLEASE APPLY TO BOTH L... BIDP PRN TOP ITCHING/SWELLING 10/08/20 19:40 Haloperidol (Haldol) 5 mg STAT STAT IM 08/27/20 23:00 08/27/20 23:03 DC 08/27/20 23:14 Haloperidol (Haldol) 10 mg STAT STAT IM 08/27/20 22:08 08/27/20 22:13 DC 08/27/20 22:25 Haloperidol (Haldol) 10 mg STAT STAT IM 10/03/20 20:49 10/03/20 20:52 DC 10/03/20 20:57 Haloperidol (Haldol) 10 mg STAT STAT IM 10/04/20 19:55 10/04/20 19:57 DC 10/04/20 20:02 Haloperidol (Haldol) 10 mg STAT STAT IM 10/04/20 20:33 10/04/20 20:34 DC 10/04/20 20:40 Haloperidol (Haldol) 10 mg STAT STAT IM 10/05/20 17:07 10/05/20 17:13 DC 10/05/20 17:27 Haloperidol (Haldol) 10 mg STAT STAT IM 10/05/20 17:56 10/05/20 18:01 DC 10/05/20 18:18 Haloperidol (Haldol) 10 mg STAT STAT IM 10/05/20 21:19 10/05/20 21:21 DC 10/05/20 21:31 Haloperidol (Haldol) 10 mg STAT STAT PO 10/03/20 20:07 10/03/20 20:53 DC 10/03/20 20:12 Haloperidol (Haldol) 10 mg STAT STAT PO 10/03/20 20:45 10/03/20 20:46 Cancel Haloperidol (Haldol) 15 mg STAT STAT IM 09/29/20 21:43 09/29/20 21:46 DC 09/29/20 22:00 Home Med (Med Rec Complete!) ASDIRECTED XX 08/24/20 20:00 08/24/20 19:54 DC Hydroxyzine HCl (Atarax) 25 mg TID PO 09/05/20 16:00 09/07/20 06:57 DC 09/06/20 08:08 Hydroxyzine HCl (Atarax) 50 mg TID PO 09/07/20 09:00 09/11/20 10:26 DC 09/10/20 21:23 Hydroxyzine HCl (Atarax) 75 mg BID PO 09/13/20 09:00 10/01/20 08:39 DC 09/29/20 20:07 Hydroxyzine HCl (Atarax) 75 mg TID PO 09/11/20 16:00 09/13/20 11:11 DC 09/12/20 20:21 Hydroxyzine HCl (Atarax) 75 mg TID PO 09/13/20 09:00 09/13/20 11:16 DC Ibuprofen (Advil) 600 mg Q8HP PRN PO PAIN 08/26/20 19:00 09/25/20 18:59 DC 09/22/20 17:25 Lorazepam (Ativan) 1 mg STAT STAT IM 08/25/20 23:13 08/25/20 23:17 DC 08/25/20 23:26 Lorazepam (Ativan) 1 mg STAT STAT IM 08/26/20 21:32 08/26/20 21:34 DC 08/26/20 21:51 Lorazepam (Ativan) 1 mg STAT STAT IM 10/03/20 20:49 10/03/20 20:52 DC 10/03/20 20:56 Lorazepam (Ativan) 1 mg STAT STAT PO 10/03/20 20:45 10/03/20 20:46 Cancel Lorazepam (Ativan) 2 mg STAT STAT IM 08/27/20 22:08 08/27/20 22:13 DC 08/27/20 22:24 Lorazepam (Ativan) 2 mg STAT STAT IM 08/27/20 23:04 08/27/20 23:09 DC 08/27/20 23:14 Lorazepam (Ativan) 2 mg STAT STAT IM 09/29/20 21:43 09/29/20 21:46 DC 09/29/20 22:00 Lorazepam (Ativan) 2 mg STAT STAT IM 10/04/20 19:55 10/04/20 19:57 DC 10/04/20 20:02 Lorazepam (Ativan) 2 mg STAT STAT IM 10/04/20 20:33 10/04/20 20:34 DC 10/04/20 20:40 Lorazepam (Ativan) 2 mg STAT STAT IM 10/05/20 17:07 10/05/20 17:13 DC 10/05/20 17:27 Lorazepam (Ativan) 2 mg STAT STAT IM 10/05/20 17:56 10/05/20 18:01 DC 10/05/20 18:18 Lorazepam (Ativan) 2 mg STAT STAT IM 10/05/20 21:19 10/05/20 21:21 DC 10/05/20 21:31 Lorazepam (Ativan) 2 mg STAT STAT IV 08/27/20 23:00 08/27/20 23:09 DC Lorazepam (Ativan) 2 mg STAT STAT PO 10/03/20 20:07 10/03/20 20:09 DC 10/03/20 20:12 Magnesium Hydroxide (Milk Of Magnesia) 30 ml DAILYPRN PRN PO CONSTIPATION 08/24/20 19:15 Nicotine (Nicoderm Cq 14mg) 1 patch DAILY STAT TD 10/10/20 11:31 10/10/20 11:34 DC Olanzapine (ZyPREXA) 7.5 mg BID PO 09/12/20 09:00 09/12/20 08:05 DC Olanzapine (ZyPREXA) 10 mg BID PO 09/12/20 09:00 09/26/20 06:46 DC 09/23/20 22:16 Olanzapine (ZyPREXA) 15 mg BID PO 09/26/20 09:00 09/30/20 07:25 DC 09/28/20 19:40 Propranolol HCl (Inderal) 10 mg BID PO 10/08/20 09:00 10/10/20 08:00 Quetiapine Fumarate (SEROquel) 50 mg BID PO 10/08/20 09:00 10/10/20 08:00 Quetiapine Fumarate (SEROquel) 50 mg BIDP PO 09/30/20 17:15 09/30/20 17:43 DC Quetiapine Fumarate (SEROquel) 50 mg BIDP PRN PO anxiety 09/30/20 17:40 10/08/20 12:19 DC 10/07/20 22:07 Topiramate (TopAMAX) 200 mg BID PO 08/25/20 21:00 10/01/20 08:39 DC 09/28/20 19:40 Trazodone HCl (Desyrel) 50 mg QHSP PRN PO INSOMNIA 08/24/20 19:15 10/01/20 08:39 DC 08/31/20 21:59 Allergies Coded Allergies: haloperidol (Verified Adverse Reaction, Intermediate, LOCKJAW, 01/03/20) Has required & received this med many time without EPS noted risperidone (Verified Adverse Reaction, Mild, PSORIASIS, 11/26/19) IVIS HOPPER MD Oct 10, 2020 11:51
[2020-10-10] MEDS ORDERED: chlorproMAZINE INJ 50MG/2ML AMP (J3230) IM STA (23:54)
[2020-10-11] VITALS (10 sets, daily range): BP systolic 118–144; BP diastolic 56–73
--- NOTE | 2020-10-11 00:23 | MHIR ---
General Date: Oct 11, 2020 Time Initiated: 12:05 Restraint Documentation Order/Evaluation FACE TO FACE: [Yes]. PHYSICIAN ASSESSMENT: [Patient verbally and physically agressive towards staff and others.]. REASON FOR RESTRAINT: Patient poses imminent danger of harming self or others: [yelling profanities at staff, physically agrsesive]. DE-ESCALATION INTERVENTIONS ATTEMPTED BEFORE USE OF RESTRAINTS: [verbal redirection] [MECHANICAL AND/OR CHEMICAL] RESTRAINTS USED: [4 point physical restraints, 100mg im thorazine]. LENGTH OF TIME ORDERED IN RESTRAINTS: [240] minutes. WHEN TO DISCONTINUE RESTRAINTS: When the patient is no longer a threat to themselves or others]. Post evaluation of restraint due in 24 hours. LAURA CARROLL Oct 11, 2020 00:23
[2020-10-11] MEDS: QUEtiapine FUMARATE 50MG TAB PO SCH ×2 (10:03→21:00)
[2020-10-11] MEDS: PROPRANOLOL 10 MG TAB PO SCH ×2 (10:03→21:00)
[2020-10-11] MEDS: CETIRIZINE (ZyrTEC) 10 MG TAB PO SCH ×2 (10:03→21:00)
--- NOTE | 2020-10-11 14:01 | MHIPNPDOC ---
[facility] Progress Note Progress Note DATE OF SERVICE: 10/11/20 SUBJECTIVE: Pt showed again acting out behavior,She was coded yesterday night. OBJECTIVE: Patient has a long history of mental illness with multiple temper tantrums, behavioral problems, and several suicide attempts. Has been in and out of the hospitals, being refused by most hospitals. Has been in seclusion several times on the unit during this admission. Currently somewhat calmer. The coping skills are helping to some extent. Her 1:1 observation is taken off She is attending groups.Started taking medications.Labs are normal Troponin I was in normal limits. Today calmer and some what apologetic. MENTAL STATUS EXAMINATION: Casually dressed with clean clothes, cooperative. Makes good eye contact. Speech, rate, rhythm, volume are good. Mood is anxious. Affect is full range. Thought process linear, goal directed. Thought content: Denied any suicidal or homicidal ideas. Denied any delusions. Denied auditory or visual hallucinations. She is oriented to time, place, and person. Memory is intact. Insight and judgment are poor. MEDICATIONS: - quetiapine 50 mg twice a day - propranolol 10 mg twice a day for akathisia DIAGNOSES: 1. Cyclothymia. 2. Borderline personality disorder. PLAN: Continue current medications.Pt doing well, no restrictions necessary.Will be closely monitored. TIME SPENT: 25 minutes. Vital Signs Vital Signs Date Time Temp Pulse Resp B/P (MAP) Pulse Ox O2 Delivery O2 Flow Rate FiO2 10/11/20 10:03 98 122/77 10/11/20 01:45 14 100 Room Air 10/11/20 00:15 97.8 Current Medications Current Medications Medications (Trade) Dose Ordered Sig/Brielle Route PRN Reason Start Time Stop Time Status Last Admin Dose Admin Acetaminophen (Tylenol Tab) 650 mg Q6HP PRN PO HEADACHE or DISCOMFORT 08/24/20 19:15 10/09/20 15:24 Al Hydrox/Mg Hydrox/Simethicone (Mylanta) 30 ml Q4HP PRN PO HEARTBURN/INDIGESTION 08/24/20 19:15 10/03/20 13:13 Aripiprazole (AbiLIFY) 10 mg BID PO 08/29/20 09:00 09/07/20 06:57 DC 09/06/20 20:12 Aripiprazole (AbiLIFY) 10 mg TID PO 09/07/20 09:00 09/13/20 11:15 DC 09/12/20 20:21 Cefdinir (Omnicef) 300 mg BID PO 08/26/20 21:00 09/03/20 13:13 DC 09/03/20 08:39 Cetirizine HCl (ZyrTEC) 10 mg BID PO 10/08/20 21:00 10/11/20 10:03 Cetirizine HCl (ZyrTEC) 10 mg DAILY PO 09/01/20 09:00 10/08/20 19:39 DC 10/07/20 09:05 Chlorpromazine HCl (Thorazine) 25 mg BID PO 08/25/20 21:00 08/29/20 09:28 DC 08/28/20 20:16 Chlorpromazine HCl (Thorazine) 25 mg TID PRN PO anxiety/agitation 08/25/20 17:45 10/01/20 08:39 DC 09/29/20 20:07 Chlorpromazine HCl (Thorazine) 50 mg STAT STAT IM 08/25/20 23:13 08/25/20 23:17 DC 08/25/20 23:26 Chlorpromazine HCl (Thorazine) 50 mg STAT STAT IM 08/26/20 21:32 08/26/20 21:34 DC 08/26/20 21:51 Chlorpromazine HCl (Thorazine) 100 mg BID PO 08/25/20 21:00 08/29/20 09:28 DC 08/28/20 20:16 Chlorpromazine HCl (Thorazine) 100 mg STAT STAT IM 10/10/20 23:54 10/10/20 23:56 DC 10/11/20 00:01 Chlorpromazine HCl (Thorazine) 200 mg STAT STAT PO 10/02/20 14:54 10/02/20 14:56 DC 10/02/20 15:00 Diphenhydramine HCl (Benadryl) 50 mg STAT STAT IM 08/27/20 22:08 08/27/20 22:13 DC 08/27/20 22:24 Diphenhydramine HCl (Benadryl) 50 mg STAT STAT IM 08/27/20 23:04 08/27/20 23:09 DC 08/27/20 23:14 Diphenhydramine HCl (Benadryl) 50 mg STAT STAT IM 10/03/20 20:49 10/03/20 20:52 DC 10/03/20 20:56 Diphenhydramine HCl (Benadryl) 50 mg STAT STAT IM 10/04/20 19:55 10/04/20 19:57 DC 10/04/20 20:02 Diphenhydramine HCl (Benadryl) 50 mg STAT STAT IM 10/04/20 20:33 10/04/20 20:34 DC 10/04/20 20:40 Diphenhydramine HCl (Benadryl) 50 mg STAT STAT IM 10/05/20 17:07 10/05/20 17:13 DC 10/05/20 17:27 Diphenhydramine HCl (Benadryl) 50 mg STAT STAT IM 10/05/20 17:56 10/05/20 18:01 DC 10/05/20 18:18 Diphenhydramine HCl (Benadryl) 50 mg STAT STAT IM 10/05/20 21:19 10/05/20 21:21 DC 10/05/20 21:31 Diphenhydramine HCl (Benadryl) 50 mg STAT STAT IV 08/27/20 23:00 08/27/20 23:09 DC Diphenhydramine HCl (Benadryl) 50 mg STAT STAT PO 10/03/20 20:07 10/03/20 20:53 DC 10/03/20 20:13 Diphenhydramine HCl (Benadryl) 50 mg STAT STAT PO 10/03/20 20:45 10/03/20 20:46 Cancel Diphenhydramine HCl (Benadryl) 100 mg STAT STAT IM 09/29/20 21:43 09/29/20 21:46 DC 09/29/20 22:00 Divalproex Sodium (Depakote) 250 mg BID PO 09/12/20 09:00 09/13/20 12:00 DC 09/13/20 11:24 Divalproex Sodium (Depakote) 250 mg DAILY PO 09/14/20 09:00 09/30/20 07:25 DC 09/23/20 09:20 Divalproex Sodium (Depakote) 500 mg QHS PO 09/13/20 21:00 10/01/20 08:39 DC 09/28/20 19:40 Emollient Cream (Vanicream) PLEASE APPLY TO BOTH L... BIDP PRN TOP ITCHING/SWELLING 10/08/20 19:40 Haloperidol (Haldol) 5 mg STAT STAT IM 08/27/20 23:00 08/27/20 23:03 DC 08/27/20 23:14 Haloperidol (Haldol) 10 mg STAT STAT IM 08/27/20 22:08 08/27/20 22:13 DC 08/27/20 22:25 Haloperidol (Haldol) 10 mg STAT STAT IM 10/03/20 20:49 10/03/20 20:52 DC 10/03/20 20:57 Haloperidol (Haldol) 10 mg STAT STAT IM 10/04/20 19:55 10/04/20 19:57 DC 10/04/20 20:02 Haloperidol (Haldol) 10 mg STAT STAT IM 10/04/20 20:33 10/04/20 20:34 DC 10/04/20 20:40 Haloperidol (Haldol) 10 mg STAT STAT IM 10/05/20 17:07 10/05/20 17:13 DC 10/05/20 17:27 Haloperidol (Haldol) 10 mg STAT STAT IM 10/05/20 17:56 10/05/20 18:01 DC 10/05/20 18:18 Haloperidol (Haldol) 10 mg STAT STAT IM 10/05/20 21:19 10/05/20 21:21 DC 10/05/20 21:31 Haloperidol (Haldol) 10 mg STAT STAT PO 10/03/20 20:07 10/03/20 20:53 DC 10/03/20 20:12 Haloperidol (Haldol) 10 mg STAT STAT PO 10/03/20 20:45 10/03/20 20:46 Cancel Haloperidol (Haldol) 15 mg STAT STAT IM 09/29/20 21:43 09/29/20 21:46 DC 09/29/20 22:00 Home Med (Med Rec Complete!) ASDIRECTED XX 08/24/20 20:00 08/24/20 19:54 DC Hydroxyzine HCl (Atarax) 25 mg TID PO 09/05/20 16:00 09/07/20 06:57 DC 09/06/20 08:08 Hydroxyzine HCl (Atarax) 50 mg TID PO 09/07/20 09:00 09/11/20 10:26 DC 09/10/20 21:23 Hydroxyzine HCl (Atarax) 75 mg BID PO 09/13/20 09:00 10/01/20 08:39 DC 09/29/20 20:07 Hydroxyzine HCl (Atarax) 75 mg TID PO 09/11/20 16:00 09/13/20 11:11 DC 09/12/20 20:21 Hydroxyzine HCl (Atarax) 75 mg TID PO 09/13/20 09:00 09/13/20 11:16 DC Ibuprofen (Advil) 600 mg Q8HP PRN PO PAIN 08/26/20 19:00 09/25/20 18:59 DC 09/22/20 17:25 Lorazepam (Ativan) 1 mg STAT STAT IM 08/25/20 23:13 08/25/20 23:17 DC 08/25/20 23:26 Lorazepam (Ativan) 1 mg STAT STAT IM 08/26/20 21:32 08/26/20 21:34 DC 08/26/20 21:51 Lorazepam (Ativan) 1 mg STAT STAT IM 10/03/20 20:49 10/03/20 20:52 DC 10/03/20 20:56 Lorazepam (Ativan) 1 mg STAT STAT PO 10/03/20 20:45 10/03/20 20:46 Cancel Lorazepam (Ativan) 2 mg STAT STAT IM 08/27/20 22:08 08/27/20 22:13 DC 08/27/20 22:24 Lorazepam (Ativan) 2 mg STAT STAT IM 08/27/20 23:04 08/27/20 23:09 DC 08/27/20 23:14 Lorazepam (Ativan) 2 mg STAT STAT IM 09/29/20 21:43 09/29/20 21:46 DC 09/29/20 22:00 Lorazepam (Ativan) 2 mg STAT STAT IM 10/04/20 19:55 10/04/20 19:57 DC 10/04/20 20:02 Lorazepam (Ativan) 2 mg STAT STAT IM 10/04/20 20:33 10/04/20 20:34 DC 10/04/20 20:40 Lorazepam (Ativan) 2 mg STAT STAT IM 10/05/20 17:07 10/05/20 17:13 DC 10/05/20 17:27 Lorazepam (Ativan) 2 mg STAT STAT IM 10/05/20 17:56 10/05/20 18:01 DC 10/05/20 18:18 Lorazepam (Ativan) 2 mg STAT STAT IM 10/05/20 21:19 10/05/20 21:21 DC 10/05/20 21:31 Lorazepam (Ativan) 2 mg STAT STAT IV 08/27/20 23:00 08/27/20 23:09 DC Lorazepam (Ativan) 2 mg STAT STAT PO 10/03/20 20:07 10/03/20 20:09 DC 10/03/20 20:12 Magnesium Hydroxide (Milk Of Magnesia) 30 ml DAILYPRN PRN PO CONSTIPATION 08/24/20 19:15 Nicotine (Nicoderm Cq 14mg) 1 patch DAILY STAT TD 10/10/20 11:31 10/10/20 11:32 Cancel Olanzapine (ZyPREXA) 7.5 mg BID PO 09/12/20 09:00 09/12/20 08:05 DC Olanzapine (ZyPREXA) 10 mg BID PO 09/12/20 09:00 09/26/20 06:46 DC 09/23/20 22:16 Olanzapine (ZyPREXA) 15 mg BID PO 09/26/20 09:00 09/30/20 07:25 DC 09/28/20 19:40 Propranolol HCl (Inderal) 10 mg BID PO 10/08/20 09:00 10/11/20 10:03 Quetiapine Fumarate (SEROquel) 50 mg BID PO 10/08/20 09:00 10/11/20 10:03 Quetiapine Fumarate (SEROquel) 50 mg BIDP PO 09/30/20 17:15 09/30/20 17:43 DC Quetiapine Fumarate (SEROquel) 50 mg BIDP PRN PO anxiety 09/30/20 17:40 10/08/20 12:19 DC 10/07/20 22:07 Topiramate (TopAMAX) 200 mg BID PO 08/25/20 21:00 10/01/20 08:39 DC 09/28/20 19:40 Trazodone HCl (Desyrel) 50 mg QHSP PRN PO INSOMNIA 08/24/20 19:15 10/01/20 08:39 DC 08/31/20 21:59 Allergies Coded Allergies: haloperidol (Verified Adverse Reaction, Intermediate, LOCKJAW, 01/03/20) Has required & received this med many time without EPS noted risperidone (Verified Adverse Reaction, Mild, PSORIASIS, 11/26/19) IVIS HOPPER MD Oct 11, 2020 14:01
[2020-10-11] MEDS: MAALOX 30 ML SUSP *UDC PO PRN (21:45)
[2020-10-11] MEDS ORDERED: chlorproMAZINE INJ 50MG/2ML AMP (J3230) IM STA (23:22)
--- NOTE | 2020-10-11 23:30 | MHIR ---
General Date: Oct 11, 2020 Restraint Documentation Order/Evaluation FACE TO FACE: [Yes]. PHYSICIAN ASSESSMENT: [Patient physically and verbally aggressive. Threatening to drink hand soap.]. REASON FOR RESTRAINT: Patient poses imminent danger of harming self or others: [Yelling, screaming, trying to hit staff]. DE-ESCALATION INTERVENTIONS ATTEMPTED BEFORE USE OF RESTRAINTS: [Verbal redirection] [MECHANICAL AND/OR CHEMICAL] RESTRAINTS USED: [Both]. LENGTH OF TIME ORDERED IN RESTRAINTS: [240] minutes. WHEN TO DISCONTINUE RESTRAINTS: [When the patient is no longer a threat to themselves or others]. Post evaluation of restraint due in 24 hours. LAURA CARROLL Oct 11, 2020 23:30
--- NOTE | 2020-10-11 23:41 | IPNPDOC ---
Date Seen The patient was seen on 10/11/20. Progress Note Called by RN, concerned that patient ingest one and a half 4 oz bottles of hand lotion. Patient feels mild abdominal discomfort but otherwise feels well. I spoke to Poison Control, they are recommending adequate PO hydration and to expect possible diarrhea and abdominal cramping. They did not recommend lab work or tele monitoring. [facility] staff aware to keep lotions, shampoos and other chemicals out of patient's reach. Requested new set of vitals. VS, I&O, 24H, Fishbone Vital Signs/I&O Vital Signs Date Time Temp Pulse Resp B/P (MAP) Pulse Ox O2 Delivery O2 Flow Rate FiO2 10/11/20 21:00 80 10/11/20 10:03 122/77 10/11/20 01:45 14 100 Room Air 10/11/20 00:15 97.8 JASMYNE CONNOR MD Oct 11, 2020 23:41
[2020-10-12] VITALS: BP 135/66
[2020-10-12 00:15] VITALS: BP 116/58
[2020-10-12 00:30] VITALS: BP 127/59
[2020-10-12] MEDS ORDERED: LORazepam 2 MG/ML VIAL IM STA (00:51)
[2020-10-12 01:30] VITALS: BP 124/59
[2020-10-12] MEDS: CETIRIZINE (ZyrTEC) 10 MG TAB PO SCH ×2 (09:00→20:07)
[2020-10-12] MEDS: QUEtiapine FUMARATE 50MG TAB PO SCH ×2 (09:00→20:07)
[2020-10-12] MEDS: PROPRANOLOL 10 MG TAB PO SCH ×2 (09:00→20:07)
[2020-10-12 16:14] VITALS: BP 134/73
[2020-10-12] MEDS ORDERED: chlorproMAZINE 25 MG TABLET PO ONE (21:25)
[2020-10-13] MEDS: QUEtiapine FUMARATE 50MG TAB PO SCH ×2 (09:00→21:00)
[2020-10-13] MEDS: CETIRIZINE (ZyrTEC) 10 MG TAB PO SCH ×2 (09:00→21:00)
[2020-10-13] MEDS: PROPRANOLOL 10 MG TAB PO SCH ×2 (09:00→21:00)
[2020-10-13 16:15] VITALS: BP 138/80
[2020-10-13] MEDS: ACETAMINOPHEN TAB 650MG DOSE (2X325MG) PO PRN (16:46)
[2020-10-14] MEDS: PROPRANOLOL 10 MG TAB PO SCH ×3 (09:00→21:09)
[2020-10-14] MEDS: CETIRIZINE (ZyrTEC) 10 MG TAB PO SCH ×3 (09:00→21:07)
[2020-10-14] MEDS: QUEtiapine FUMARATE 50MG TAB PO SCH ×2 (12:51→21:09)
[2020-10-14 12:54] VITALS: BP 138/82
--- NOTE | 2020-10-14 16:45 | MHIPNPDOC ---
[facility] Progress Note Progress Note DATE OF SERVICE: 10/14/20 SUBJECTIVE: Pt showed again acting out behavior,She was coded three days ago .Now she is calmer,interacting well with the staff attending groups, She wanted her medication timings to be changed which is agreeable. OBJECTIVE: Patient has a long history of mental illness with multiple temper tantrums, behavioral problems, and several suicide attempts. Has been in and out of the hospitals, being refused by most hospitals. Has been in seclusion several times on the unit during this admission. Currently somewhat calmer. The coping skills are helping to some extent. Her 1:1 observation is taken off She is attending groups.Started taking medications.Labs are normal Troponin I was in normal limits. Today calmer and some what apologetic.Slept well MENTAL STATUS EXAMINATION: Casually dressed with clean clothes, cooperative. Makes good eye contact. Speech, rate, rhythm, volume are good. Mood is anxious. Affect is full range. Thought process linear, goal directed. Thought content: Denied any suicidal or homicidal ideas. Denied any delusions. Denied auditory or visual hallucinations. She is oriented to time, place, and person. Memory is intact. Insight and judgment are poor. MEDICATIONS: - quetiapine 50 mg twice a day - propranolol 10 mg twice a day for akathisia DIAGNOSES: 1. Cyclothymia. 2. Borderline personality disorder. PLAN: Continue current medications.Pt doing well, no restrictions necessary.Will be closely monitored. TIME SPENT: 25 minutes. Vital Signs Vital Signs Date Time Temp Pulse Resp B/P (MAP) Pulse Ox O2 Delivery O2 Flow Rate FiO2 10/14/20 12:54 97.1 106 18 138/82 (100) 94 Room Air Current Medications Current Medications Medications (Trade) Dose Ordered Sig/Brielle Route PRN Reason Start Time Stop Time Status Last Admin Dose Admin Acetaminophen (Tylenol Tab) 650 mg Q6HP PRN PO HEADACHE or DISCOMFORT 08/24/20 19:15 10/13/20 16:46 Al Hydrox/Mg Hydrox/Simethicone (Mylanta) 30 ml Q4HP PRN PO HEARTBURN/INDIGESTION 08/24/20 19:15 10/11/20 21:45 Aripiprazole (AbiLIFY) 10 mg BID PO 08/29/20 09:00 09/07/20 06:57 DC 09/06/20 20:12 Aripiprazole (AbiLIFY) 10 mg TID PO 09/07/20 09:00 09/13/20 11:15 DC 09/12/20 20:21 Cefdinir (Omnicef) 300 mg BID PO 08/26/20 21:00 09/03/20 13:13 DC 09/03/20 08:39 Cetirizine HCl (ZyrTEC) 10 mg BID PO 10/08/20 21:00 10/14/20 16:19 DC 10/14/20 12:52 Cetirizine HCl (ZyrTEC) 10 mg BID@1200,2100 PO 10/14/20 21:00 Cetirizine HCl (ZyrTEC) 10 mg DAILY PO 09/01/20 09:00 10/08/20 19:39 DC 10/07/20 09:05 Chlorpromazine HCl (Thorazine) 25 mg BID PO 08/25/20 21:00 08/29/20 09:28 DC 08/28/20 20:16 Chlorpromazine HCl (Thorazine) 25 mg TID PRN PO anxiety/agitation 08/25/20 17:45 10/01/20 08:39 DC 09/29/20 20:07 Chlorpromazine HCl (Thorazine) 50 mg STAT STAT IM 08/25/20 23:13 08/25/20 23:17 DC 08/25/20 23:26 Chlorpromazine HCl (Thorazine) 50 mg STAT STAT IM 08/26/20 21:32 08/26/20 21:34 DC 08/26/20 21:51 Chlorpromazine HCl (Thorazine) 100 mg BID PO 08/25/20 21:00 08/29/20 09:28 DC 08/28/20 20:16 Chlorpromazine HCl (Thorazine) 100 mg STAT STAT IM 10/10/20 23:54 10/10/20 23:56 DC 10/11/20 00:01 Chlorpromazine HCl (Thorazine) 100 mg STAT STAT IM 10/11/20 23:22 10/11/20 23:23 DC 10/11/20 23:27 Chlorpromazine HCl (Thorazine) 200 mg STAT STAT PO 10/02/20 14:54 10/02/20 14:56 DC 10/02/20 15:00 Diphenhydramine HCl (Benadryl) 50 mg STAT STAT IM 08/27/20 22:08 08/27/20 22:13 DC 08/27/20 22:24 Diphenhydramine HCl (Benadryl) 50 mg STAT STAT IM 08/27/20 23:04 08/27/20 23:09 DC 08/27/20 23:14 Diphenhydramine HCl (Benadryl) 50 mg STAT STAT IM 10/03/20 20:49 10/03/20 20:52 DC 10/03/20 20:56 Diphenhydramine HCl (Benadryl) 50 mg STAT STAT IM 10/04/20 19:55 10/04/20 19:57 DC 10/04/20 20:02 Diphenhydramine HCl (Benadryl) 50 mg STAT STAT IM 10/04/20 20:33 10/04/20 20:34 DC 10/04/20 20:40 Diphenhydramine HCl (Benadryl) 50 mg STAT STAT IM 10/05/20 17:07 10/05/20 17:13 DC 10/05/20 17:27 Diphenhydramine HCl (Benadryl) 50 mg STAT STAT IM 10/05/20 17:56 10/05/20 18:01 DC 10/05/20 18:18 Diphenhydramine HCl (Benadryl) 50 mg STAT STAT IM 10/05/20 21:19 10/05/20 21:21 DC 10/05/20 21:31 Diphenhydramine HCl (Benadryl) 50 mg STAT STAT IV 08/27/20 23:00 08/27/20 23:09 DC Diphenhydramine HCl (Benadryl) 50 mg STAT STAT PO 10/03/20 20:07 10/03/20 20:53 DC 10/03/20 20:13 Diphenhydramine HCl (Benadryl) 50 mg STAT STAT PO 10/03/20 20:45 10/03/20 20:46 Cancel Diphenhydramine HCl (Benadryl) 100 mg STAT STAT IM 09/29/20 21:43 09/29/20 21:46 DC 09/29/20 22:00 Divalproex Sodium (Depakote) 250 mg BID PO 09/12/20 09:00 09/13/20 12:00 DC 09/13/20 11:24 Divalproex Sodium (Depakote) 250 mg DAILY PO 09/14/20 09:00 09/30/20 07:25 DC 09/23/20 09:20 Divalproex Sodium (Depakote) 500 mg QHS PO 09/13/20 21:00 10/01/20 08:39 DC 09/28/20 19:40 Emollient Cream (Vanicream) PLEASE APPLY TO BOTH L... BIDP PRN TOP ITCHING/SWELLING 10/08/20 19:40 Haloperidol (Haldol) 5 mg STAT STAT IM 08/27/20 23:00 08/27/20 23:03 DC 08/27/20 23:14 Haloperidol (Haldol) 10 mg STAT STAT IM 08/27/20 22:08 08/27/20 22:13 DC 08/27/20 22:25 Haloperidol (Haldol) 10 mg STAT STAT IM 10/03/20 20:49 10/03/20 20:52 DC 10/03/20 20:57 Haloperidol (Haldol) 10 mg STAT STAT IM 10/04/20 19:55 10/04/20 19:57 DC 10/04/20 20:02 Haloperidol (Haldol) 10 mg STAT STAT IM 10/04/20 20:33 10/04/20 20:34 DC 10/04/20 20:40 Haloperidol (Haldol) 10 mg STAT STAT IM 10/05/20 17:07 10/05/20 17:13 DC 10/05/20 17:27 Haloperidol (Haldol) 10 mg STAT STAT IM 10/05/20 17:56 10/05/20 18:01 DC 10/05/20 18:18 Haloperidol (Haldol) 10 mg STAT STAT IM 10/05/20 21:19 10/05/20 21:21 DC 10/05/20 21:31 Haloperidol (Haldol) 10 mg STAT STAT PO 10/03/20 20:07 10/03/20 20:53 DC 10/03/20 20:12 Haloperidol (Haldol) 10 mg STAT STAT PO 10/03/20 20:45 10/03/20 20:46 Cancel Haloperidol (Haldol) 15 mg STAT STAT IM 09/29/20 21:43 09/29/20 21:46 DC 09/29/20 22:00 Home Med (Med Rec Complete!) ASDIRECTED XX 08/24/20 20:00 08/24/20 19:54 DC Hydroxyzine HCl (Atarax) 25 mg TID PO 09/05/20 16:00 09/07/20 06:57 DC 09/06/20 08:08 Hydroxyzine HCl (Atarax) 50 mg TID PO 09/07/20 09:00 09/11/20 10:26 DC 09/10/20 21:23 Hydroxyzine HCl (Atarax) 75 mg BID PO 09/13/20 09:00 10/01/20 08:39 DC 09/29/20 20:07 Hydroxyzine HCl (Atarax) 75 mg TID PO 09/11/20 16:00 09/13/20 11:11 DC 09/12/20 20:21 Hydroxyzine HCl (Atarax) 75 mg TID PO 09/13/20 09:00 09/13/20 11:16 DC Ibuprofen (Advil) 600 mg Q8HP PRN PO PAIN 08/26/20 19:00 09/25/20 18:59 DC 09/22/20 17:25 Lorazepam (Ativan) 1 mg STAT STAT IM 08/25/20 23:13 08/25/20 23:17 DC 08/25/20 23:26 Lorazepam (Ativan) 1 mg STAT STAT IM 08/26/20 21:32 08/26/20 21:34 DC 08/26/20 21:51 Lorazepam (Ativan) 1 mg STAT STAT IM 10/03/20 20:49 10/03/20 20:52 DC 10/03/20 20:56 Lorazepam (Ativan) 1 mg STAT STAT IM 10/12/20 00:51 10/12/20 00:53 DC 10/12/20 01:01 Lorazepam (Ativan) 1 mg STAT STAT PO 10/03/20 20:45 10/03/20 20:46 Cancel Lorazepam (Ativan) 2 mg STAT STAT IM 08/27/20 22:08 08/27/20 22:13 DC 08/27/20 22:24 Lorazepam (Ativan) 2 mg STAT STAT IM 08/27/20 23:04 08/27/20 23:09 DC 08/27/20 23:14 Lorazepam (Ativan) 2 mg STAT STAT IM 09/29/20 21:43 09/29/20 21:46 DC 09/29/20 22:00 Lorazepam (Ativan) 2 mg STAT STAT IM 10/04/20 19:55 10/04/20 19:57 DC 10/04/20 20:02 Lorazepam (Ativan) 2 mg STAT STAT IM 10/04/20 20:33 10/04/20 20:34 DC 10/04/20 20:40 Lorazepam (Ativan) 2 mg STAT STAT IM 10/05/20 17:07 10/05/20 17:13 DC 10/05/20 17:27 Lorazepam (Ativan) 2 mg STAT STAT IM 10/05/20 17:56 10/05/20 18:01 DC 10/05/20 18:18 Lorazepam (Ativan) 2 mg STAT STAT IM 10/05/20 21:19 10/05/20 21:21 DC 10/05/20 21:31 Lorazepam (Ativan) 2 mg STAT STAT IV 08/27/20 23:00 08/27/20 23:09 DC Lorazepam (Ativan) 2 mg STAT STAT PO 10/03/20 20:07 10/03/20 20:09 DC 10/03/20 20:12 Magnesium Hydroxide (Milk Of Magnesia) 30 ml DAILYPRN PRN PO CONSTIPATION 08/24/20 19:15 Nicotine (Nicoderm Cq 14mg) 1 patch DAILY STAT TD 10/10/20 11:31 10/10/20 11:32 Cancel Olanzapine (ZyPREXA) 7.5 mg BID PO 09/12/20 09:00 09/12/20 08:05 DC Olanzapine (ZyPREXA) 10 mg BID PO 09/12/20 09:00 09/26/20 06:46 DC 09/23/20 22:16 Olanzapine (ZyPREXA) 15 mg BID PO 09/26/20 09:00 09/30/20 07:25 DC 09/28/20 19:40 Propranolol HCl (Inderal) 10 mg BID PO 10/08/20 09:00 10/14/20 16:23 DC 10/14/20 12:49 Propranolol HCl (Inderal) 10 mg BID@1200,2100 PO 10/14/20 21:00 Quetiapine Fumarate (SEROquel) 50 mg BID PO 10/08/20 09:00 10/14/20 16:22 DC 10/14/20 12:51 Quetiapine Fumarate (SEROquel) 50 mg BID@1200,2100 PO 10/14/20 21:00 Quetiapine Fumarate (SEROquel) 50 mg BIDP PO 09/30/20 17:15 09/30/20 17:43 DC Quetiapine Fumarate (SEROquel) 50 mg BIDP PRN PO anxiety 09/30/20 17:40 10/08/20 12:19 DC 10/07/20 22:07 Topiramate (TopAMAX) 200 mg BID PO 08/25/20 21:00 10/01/20 08:39 DC 09/28/20 19:40 Trazodone HCl (Desyrel) 50 mg QHSP PRN PO INSOMNIA 08/24/20 19:15 10/01/20 08:39 DC 08/31/20 21:59 Allergies Coded Allergies: haloperidol (Verified Adverse Reaction, Intermediate, LOCKJAW, 01/03/20) Has required & received this med many time without EPS noted risperidone (Verified Adverse Reaction, Mild, PSORIASIS, 11/26/19) IVIS HOPPER MD Oct 14, 2020 16:45
[2020-10-14 18:45] VITALS: BP 128/66
[2020-10-15] MEDS ORDERED: QUEtiapine FUMARATE 50MG TAB PO ONE (00:35)
[2020-10-15] MEDS: ACETAMINOPHEN TAB 650MG DOSE (2X325MG) PO PRN ×2 (01:35→12:25)
[2020-10-15] MEDS ORDERED: ChlorproMAZINE 100 MG TABLET PO ONE ×2 (02:45→22:45)
[2020-10-15] MEDS: PROPRANOLOL 10 MG TAB PO SCH ×2 (12:26→21:28)
[2020-10-15] MEDS: CETIRIZINE (ZyrTEC) 10 MG TAB PO SCH ×2 (12:26→21:28)
[2020-10-15] MEDS: QUEtiapine FUMARATE 50MG TAB PO SCH ×2 (12:26→21:28)
--- NOTE | 2020-10-15 16:52 | MHIPNPDOC ---
[facility] Progress Note Progress Note DATE OF SERVICE: 10/15/20 SUBJECTIVE: Pt showed again acting out behavior,She was coded three days ago .Now she is calmer,interacting well with the staff attending groups, She wanted her medication timings to be changed which is agreeable.he reports she is doing well. OBJECTIVE: Patient has a long history of mental illness with multiple temper tantrums, behavioral problems, and several suicide attempts. Has been in and out of the hospitals, being refused by most hospitals. Has been in seclusion several times on the unit during this admission. Currently somewhat calmer. The coping skills are helping to some extent. Her 1:1 observation is taken off She is attending groups.Started taking medications.Labs are normal Troponin I was in normal limits. Today calmer and some what apologetic.Slept well . interacting well with the staff. MENTAL STATUS EXAMINATION: Casually dressed with clean clothes, cooperative. Makes good eye contact. Speech, rate, rhythm, volume are good. Mood is anxious. Affect is full range. Thought process linear, goal directed. Thought content: Denied any suicidal or homicidal ideas. Denied any delusions. Denied auditory or visual hallucinations. She is oriented to time, place, and person. Memory is intact. Insight and judgment are poor. MEDICATIONS: - quetiapine 50 mg twice a day - propranolol 10 mg twice a day for akathisia DIAGNOSES: 1. Cyclothymia. 2. Borderline personality disorder. PLAN: Continue current medications.Pt doing well, no restrictions necessary.Will be closely monitored. TIME SPENT: 25 minutes. HISTORY: . Vital Signs Vital Signs Date Time Temp Pulse Resp B/P (MAP) Pulse Ox O2 Delivery O2 Flow Rate FiO2 10/15/20 12:26 88 122/84 10/14/20 18:45 98.1 18 10/14/20 12:54 94 Room Air Current Medications Current Medications Medications (Trade) Dose Ordered Sig/Brielle Route PRN Reason Start Time Stop Time Status Last Admin Dose Admin Acetaminophen (Tylenol Tab) 650 mg Q6HP PRN PO HEADACHE or DISCOMFORT 08/24/20 19:15 10/15/20 12:25 Al Hydrox/Mg Hydrox/Simethicone (Mylanta) 30 ml Q4HP PRN PO HEARTBURN/INDIGESTION 08/24/20 19:15 10/11/20 21:45 Aripiprazole (AbiLIFY) 10 mg BID PO 08/29/20 09:00 09/07/20 06:57 DC 09/06/20 20:12 Aripiprazole (AbiLIFY) 10 mg TID PO 09/07/20 09:00 09/13/20 11:15 DC 09/12/20 20:21 Cefdinir (Omnicef) 300 mg BID PO 08/26/20 21:00 09/03/20 13:13 DC 09/03/20 08:39 Cetirizine HCl (ZyrTEC) 10 mg BID PO 10/08/20 21:00 10/14/20 16:19 DC 10/14/20 12:52 Cetirizine HCl (ZyrTEC) 10 mg BID@1200,2100 PO 10/14/20 21:00 10/15/20 12:26 Cetirizine HCl (ZyrTEC) 10 mg DAILY PO 09/01/20 09:00 10/08/20 19:39 DC 10/07/20 09:05 Chlorpromazine HCl (Thorazine) 25 mg BID PO 08/25/20 21:00 08/29/20 09:28 DC 08/28/20 20:16 Chlorpromazine HCl (Thorazine) 25 mg TID PRN PO anxiety/agitation 08/25/20 17:45 10/01/20 08:39 DC 09/29/20 20:07 Chlorpromazine HCl (Thorazine) 50 mg STAT STAT IM 08/25/20 23:13 08/25/20 23:17 DC 08/25/20 23:26 Chlorpromazine HCl (Thorazine) 50 mg STAT STAT IM 08/26/20 21:32 08/26/20 21:34 DC 08/26/20 21:51 Chlorpromazine HCl (Thorazine) 100 mg BID PO 08/25/20 21:00 08/29/20 09:28 DC 08/28/20 20:16 Chlorpromazine HCl (Thorazine) 100 mg STAT STAT IM 10/10/20 23:54 10/10/20 23:56 DC 10/11/20 00:01 Chlorpromazine HCl (Thorazine) 100 mg STAT STAT IM 10/11/20 23:22 10/11/20 23:23 DC 10/11/20 23:27 Chlorpromazine HCl (Thorazine) 200 mg STAT STAT PO 10/02/20 14:54 10/02/20 14:56 DC 10/02/20 15:00 Diphenhydramine HCl (Benadryl) 50 mg STAT STAT IM 08/27/20 22:08 08/27/20 22:13 DC 08/27/20 22:24 Diphenhydramine HCl (Benadryl) 50 mg STAT STAT IM 08/27/20 23:04 08/27/20 23:09 DC 08/27/20 23:14 Diphenhydramine HCl (Benadryl) 50 mg STAT STAT IM 10/03/20 20:49 10/03/20 20:52 DC 10/03/20 20:56 Diphenhydramine HCl (Benadryl) 50 mg STAT STAT IM 10/04/20 19:55 10/04/20 19:57 DC 10/04/20 20:02 Diphenhydramine HCl (Benadryl) 50 mg STAT STAT IM 10/04/20 20:33 10/04/20 20:34 DC 10/04/20 20:40 Diphenhydramine HCl (Benadryl) 50 mg STAT STAT IM 10/05/20 17:07 10/05/20 17:13 DC 10/05/20 17:27 Diphenhydramine HCl (Benadryl) 50 mg STAT STAT IM 10/05/20 17:56 10/05/20 18:01 DC 10/05/20 18:18 Diphenhydramine HCl (Benadryl) 50 mg STAT STAT IM 10/05/20 21:19 10/05/20 21:21 DC 10/05/20 21:31 Diphenhydramine HCl (Benadryl) 50 mg STAT STAT IV 08/27/20 23:00 08/27/20 23:09 DC Diphenhydramine HCl (Benadryl) 50 mg STAT STAT PO 10/03/20 20:07 10/03/20 20:53 DC 10/03/20 20:13 Diphenhydramine HCl (Benadryl) 50 mg STAT STAT PO 10/03/20 20:45 10/03/20 20:46 Cancel Diphenhydramine HCl (Benadryl) 100 mg STAT STAT IM 09/29/20 21:43 09/29/20 21:46 DC 09/29/20 22:00 Divalproex Sodium (Depakote) 250 mg BID PO 09/12/20 09:00 09/13/20 12:00 DC 09/13/20 11:24 Divalproex Sodium (Depakote) 250 mg DAILY PO 09/14/20 09:00 09/30/20 07:25 DC 09/23/20 09:20 Divalproex Sodium (Depakote) 500 mg QHS PO 09/13/20 21:00 10/01/20 08:39 DC 09/28/20 19:40 Emollient Cream (Vanicream) PLEASE APPLY TO BOTH L... BIDP PRN TOP ITCHING/SWELLING 10/08/20 19:40 Haloperidol (Haldol) 5 mg STAT STAT IM 08/27/20 23:00 08/27/20 23:03 DC 08/27/20 23:14 Haloperidol (Haldol) 10 mg STAT STAT IM 08/27/20 22:08 08/27/20 22:13 DC 08/27/20 22:25 Haloperidol (Haldol) 10 mg STAT STAT IM 10/03/20 20:49 10/03/20 20:52 DC 10/03/20 20:57 Haloperidol (Haldol) 10 mg STAT STAT IM 10/04/20 19:55 10/04/20 19:57 DC 10/04/20 20:02 Haloperidol (Haldol) 10 mg STAT STAT IM 10/04/20 20:33 10/04/20 20:34 DC 10/04/20 20:40 Haloperidol (Haldol) 10 mg STAT STAT IM 10/05/20 17:07 10/05/20 17:13 DC 10/05/20 17:27 Haloperidol (Haldol) 10 mg STAT STAT IM 10/05/20 17:56 10/05/20 18:01 DC 10/05/20 18:18 Haloperidol (Haldol) 10 mg STAT STAT IM 10/05/20 21:19 10/05/20 21:21 DC 10/05/20 21:31 Haloperidol (Haldol) 10 mg STAT STAT PO 10/03/20 20:07 10/03/20 20:53 DC 10/03/20 20:12 Haloperidol (Haldol) 10 mg STAT STAT PO 10/03/20 20:45 10/03/20 20:46 Cancel Haloperidol (Haldol) 15 mg STAT STAT IM 09/29/20 21:43 09/29/20 21:46 DC 09/29/20 22:00 Home Med (Med Rec Complete!) ASDIRECTED XX 08/24/20 20:00 08/24/20 19:54 DC Hydroxyzine HCl (Atarax) 25 mg TID PO 09/05/20 16:00 09/07/20 06:57 DC 09/06/20 08:08 Hydroxyzine HCl (Atarax) 50 mg TID PO 09/07/20 09:00 09/11/20 10:26 DC 09/10/20 21:23 Hydroxyzine HCl (Atarax) 75 mg BID PO 09/13/20 09:00 10/01/20 08:39 DC 09/29/20 20:07 Hydroxyzine HCl (Atarax) 75 mg TID PO 09/11/20 16:00 09/13/20 11:11 DC 09/12/20 20:21 Hydroxyzine HCl (Atarax) 75 mg TID PO 09/13/20 09:00 09/13/20 11:16 DC Ibuprofen (Advil) 600 mg Q8HP PRN PO PAIN 08/26/20 19:00 09/25/20 18:59 DC 09/22/20 17:25 Lorazepam (Ativan) 1 mg STAT STAT IM 08/25/20 23:13 08/25/20 23:17 DC 08/25/20 23:26 Lorazepam (Ativan) 1 mg STAT STAT IM 08/26/20 21:32 08/26/20 21:34 DC 08/26/20 21:51 Lorazepam (Ativan) 1 mg STAT STAT IM 10/03/20 20:49 10/03/20 20:52 DC 10/03/20 20:56 Lorazepam (Ativan) 1 mg STAT STAT IM 10/12/20 00:51 10/12/20 00:53 DC 10/12/20 01:01 Lorazepam (Ativan) 1 mg STAT STAT PO 10/03/20 20:45 10/03/20 20:46 Cancel Lorazepam (Ativan) 2 mg STAT STAT IM 08/27/20 22:08 08/27/20 22:13 DC 08/27/20 22:24 Lorazepam (Ativan) 2 mg STAT STAT IM 08/27/20 23:04 08/27/20 23:09 DC 08/27/20 23:14 Lorazepam (Ativan) 2 mg STAT STAT IM 09/29/20 21:43 09/29/20 21:46 DC 09/29/20 22:00 Lorazepam (Ativan) 2 mg STAT STAT IM 10/04/20 19:55 10/04/20 19:57 DC 10/04/20 20:02 Lorazepam (Ativan) 2 mg STAT STAT IM 10/04/20 20:33 10/04/20 20:34 DC 10/04/20 20:40 Lorazepam (Ativan) 2 mg STAT STAT IM 10/05/20 17:07 10/05/20 17:13 DC 10/05/20 17:27 Lorazepam (Ativan) 2 mg STAT STAT IM 10/05/20 17:56 10/05/20 18:01 DC 10/05/20 18:18 Lorazepam (Ativan) 2 mg STAT STAT IM 10/05/20 21:19 10/05/20 21:21 DC 10/05/20 21:31 Lorazepam (Ativan) 2 mg STAT STAT IV 08/27/20 23:00 08/27/20 23:09 DC Lorazepam (Ativan) 2 mg STAT STAT PO 10/03/20 20:07 10/03/20 20:09 DC 10/03/20 20:12 Magnesium Hydroxide (Milk Of Magnesia) 30 ml DAILYPRN PRN PO CONSTIPATION 08/24/20 19:15 Nicotine (Nicoderm Cq 14mg) 1 patch DAILY STAT TD 10/10/20 11:31 10/10/20 11:32 Cancel Olanzapine (ZyPREXA) 7.5 mg BID PO 09/12/20 09:00 09/12/20 08:05 DC Olanzapine (ZyPREXA) 10 mg BID PO 09/12/20 09:00 09/26/20 06:46 DC 09/23/20 22:16 Olanzapine (ZyPREXA) 15 mg BID PO 09/26/20 09:00 09/30/20 07:25 DC 09/28/20 19:40 Propranolol HCl (Inderal) 10 mg BID PO 10/08/20 09:00 10/14/20 16:23 DC 10/14/20 12:49 Propranolol HCl (Inderal) 10 mg BID@1200,2100 PO 10/14/20 21:00 10/15/20 12:26 Quetiapine Fumarate (SEROquel) 50 mg BID PO 10/08/20 09:00 10/14/20 16:22 DC 10/14/20 12:51 Quetiapine Fumarate (SEROquel) 50 mg BID@1200,2100 PO 10/14/20 21:00 10/15/20 12:26 Quetiapine Fumarate (SEROquel) 50 mg BIDP PO 09/30/20 17:15 09/30/20 17:43 DC Quetiapine Fumarate (SEROquel) 50 mg BIDP PRN PO anxiety 09/30/20 17:40 10/08/20 12:19 DC 10/07/20 22:07 Topiramate (TopAMAX) 200 mg BID PO 08/25/20 21:00 10/01/20 08:39 DC 09/28/20 19:40 Trazodone HCl (Desyrel) 50 mg QHSP PRN PO INSOMNIA 08/24/20 19:15 10/01/20 08:39 DC 08/31/20 21:59 Allergies Coded Allergies: haloperidol (Verified Adverse Reaction, Intermediate, LOCKJAW, 01/03/20) Has required & received this med many time without EPS noted risperidone (Verified Adverse Reaction, Mild, PSORIASIS, 11/26/19) IVIS HOPPER MD Oct 15, 2020 16:52
[2020-10-15 17:50] VITALS: BP 126/60
[2020-10-15] MEDS ORDERED: LORazepam 2 MG/ML VIAL IM STA (23:03)
[2020-10-15 23:30] VITALS: BP 131/63
[2020-10-15 23:45] VITALS: BP 133/60
[2020-10-16] VITALS (7 sets, daily range): BP systolic 114–132; BP diastolic 57–67
--- NOTE | 2020-10-16 04:20 | MHIR ---
General Date: Oct 15, 2020 Restraint Documentation Order/Evaluation PSYCH CERTIFICATION FACE TO FACE: yes PHYSICIAN ASSESSMENT: The patient was agitated, violent towards staff and not following verbal instructions GEN: irritable / yelling REASON FOR RESTRAINT: The patient was a danger to the staff. DE-ESCALATION INTERVENTIONS ATTEMPTED BEFORE USE OF RESTRAINTS: verbal redirection [MECHANICAL AND/OR CHEMICAL] RESTRAINTS USED: Both LENGTH OF TIME ORDERED IN RESTRAINTS: 4 hours WHEN TO DISCONTINUE RESTRAINTS: When the patient is no longer a threat to to herself or others Post evaluation of restraint due in 24 hours. SAMI HILARIO D.O. Oct 16, 2020 04:20
[2020-10-16] MEDS: CETIRIZINE (ZyrTEC) 10 MG TAB PO SCH ×2 (12:44→20:47)
[2020-10-16] MEDS: QUEtiapine FUMARATE 50MG TAB PO SCH ×2 (12:44→20:47)
[2020-10-16] MEDS: PROPRANOLOL 10 MG TAB PO SCH ×2 (12:44→20:48)
--- NOTE | 2020-10-16 14:59 | MHIPNPDOC ---
[facility] Progress Note Progress Note DATE OF SERVICE: 10/16/20 SUBJECTIVE: Pt showed again acting out behavior,She was coded and restrained yesterday .Now she is calmer,interacting well with the staff attending groups, She wanted her medication timings to be changed which is agreeable.Now she wants music privileges, which was denied. OBJECTIVE: Patient has a long history of mental illness with multiple temper tantrums, behavioral problems, and several suicide attempts. Has been in and out of the hospitals, being refused by most hospitals. Has been in seclusion several times on the unit during this admission. Currently somewhat calmer. The coping skills are helping to some extent. Her 1:1 observation is taken off She is attending groups.Started taking medications.Labs are normal Troponin I was in normal limits. Today calmer and some what apologetic.Slept well MENTAL STATUS EXAMINATION: Casually dressed with clean clothes, cooperative. Makes good eye contact. Speech, rate, rhythm, volume are good. Mood is anxious. Affect is full range. Thought process linear, goal directed. Thought content: Denied any suicidal or homicidal ideas. Denied any delusions. Denied auditory or visual hallucinations. She is oriented to time, place, and person. Memory is intact. Insight and judgment are poor. MEDICATIONS: - quetiapine 50 mg twice a day - propranolol 10 mg twice a day for akathisia DIAGNOSES: 1. Cyclothymia. 2. Borderline personality disorder. PLAN: Continue current medications.Pt doing well, no restrictions necessary.Will be closely monitored. TIME SPENT: 25 minutes. Vital Signs Vital Signs Date Time Temp Pulse Resp B/P (MAP) Pulse Ox O2 Delivery O2 Flow Rate FiO2 10/16/20 12:44 72 128/82 10/16/20 01:00 96.8 16 100 Room Air Current Medications Current Medications Medications (Trade) Dose Ordered Sig/Brielle Route PRN Reason Start Time Stop Time Status Last Admin Dose Admin Acetaminophen (Tylenol Tab) 650 mg Q6HP PRN PO HEADACHE or DISCOMFORT 08/24/20 19:15 10/15/20 12:25 Al Hydrox/Mg Hydrox/Simethicone (Mylanta) 30 ml Q4HP PRN PO HEARTBURN/INDIGESTION 08/24/20 19:15 10/11/20 21:45 Aripiprazole (AbiLIFY) 10 mg BID PO 08/29/20 09:00 09/07/20 06:57 DC 09/06/20 20:12 Aripiprazole (AbiLIFY) 10 mg TID PO 09/07/20 09:00 09/13/20 11:15 DC 09/12/20 20:21 Cefdinir (Omnicef) 300 mg BID PO 08/26/20 21:00 09/03/20 13:13 DC 09/03/20 08:39 Cetirizine HCl (ZyrTEC) 10 mg BID PO 10/08/20 21:00 10/14/20 16:19 DC 10/14/20 12:52 Cetirizine HCl (ZyrTEC) 10 mg BID@1200,2100 PO 10/14/20 21:00 10/16/20 12:44 Cetirizine HCl (ZyrTEC) 10 mg DAILY PO 09/01/20 09:00 10/08/20 19:39 DC 10/07/20 09:05 Chlorpromazine HCl (Thorazine) 25 mg BID PO 08/25/20 21:00 08/29/20 09:28 DC 08/28/20 20:16 Chlorpromazine HCl (Thorazine) 25 mg TID PRN PO anxiety/agitation 08/25/20 17:45 10/01/20 08:39 DC 09/29/20 20:07 Chlorpromazine HCl (Thorazine) 50 mg STAT STAT IM 08/25/20 23:13 08/25/20 23:17 DC 08/25/20 23:26 Chlorpromazine HCl (Thorazine) 50 mg STAT STAT IM 08/26/20 21:32 08/26/20 21:34 DC 08/26/20 21:51 Chlorpromazine HCl (Thorazine) 100 mg BID PO 08/25/20 21:00 08/29/20 09:28 DC 08/28/20 20:16 Chlorpromazine HCl (Thorazine) 100 mg STAT STAT IM 10/10/20 23:54 10/10/20 23:56 DC 10/11/20 00:01 Chlorpromazine HCl (Thorazine) 100 mg STAT STAT IM 10/11/20 23:22 10/11/20 23:23 DC 10/11/20 23:27 Chlorpromazine HCl (Thorazine) 200 mg STAT STAT PO 10/02/20 14:54 10/02/20 14:56 DC 10/02/20 15:00 Diphenhydramine HCl (Benadryl) 50 mg STAT STAT IM 08/27/20 22:08 08/27/20 22:13 DC 08/27/20 22:24 Diphenhydramine HCl (Benadryl) 50 mg STAT STAT IM 08/27/20 23:04 08/27/20 23:09 DC 08/27/20 23:14 Diphenhydramine HCl (Benadryl) 50 mg STAT STAT IM 10/03/20 20:49 10/03/20 20:52 DC 10/03/20 20:56 Diphenhydramine HCl (Benadryl) 50 mg STAT STAT IM 10/04/20 19:55 10/04/20 19:57 DC 10/04/20 20:02 Diphenhydramine HCl (Benadryl) 50 mg STAT STAT IM 10/04/20 20:33 10/04/20 20:34 DC 10/04/20 20:40 Diphenhydramine HCl (Benadryl) 50 mg STAT STAT IM 10/05/20 17:07 10/05/20 17:13 DC 10/05/20 17:27 Diphenhydramine HCl (Benadryl) 50 mg STAT STAT IM 10/05/20 17:56 10/05/20 18:01 DC 10/05/20 18:18 Diphenhydramine HCl (Benadryl) 50 mg STAT STAT IM 10/05/20 21:19 10/05/20 21:21 DC 10/05/20 21:31 Diphenhydramine HCl (Benadryl) 50 mg STAT STAT IV 08/27/20 23:00 08/27/20 23:09 DC Diphenhydramine HCl (Benadryl) 50 mg STAT STAT PO 10/03/20 20:07 10/03/20 20:53 DC 10/03/20 20:13 Diphenhydramine HCl (Benadryl) 50 mg STAT STAT PO 10/03/20 20:45 10/03/20 20:46 Cancel Diphenhydramine HCl (Benadryl) 100 mg STAT STAT IM 09/29/20 21:43 09/29/20 21:46 DC 09/29/20 22:00 Divalproex Sodium (Depakote) 250 mg BID PO 09/12/20 09:00 09/13/20 12:00 DC 09/13/20 11:24 Divalproex Sodium (Depakote) 250 mg DAILY PO 09/14/20 09:00 09/30/20 07:25 DC 09/23/20 09:20 Divalproex Sodium (Depakote) 500 mg QHS PO 09/13/20 21:00 10/01/20 08:39 DC 09/28/20 19:40 Emollient Cream (Vanicream) PLEASE APPLY TO BOTH L... BIDP PRN TOP ITCHING/SWELLING 10/08/20 19:40 Haloperidol (Haldol) 5 mg STAT STAT IM 08/27/20 23:00 08/27/20 23:03 DC 08/27/20 23:14 Haloperidol (Haldol) 10 mg STAT STAT IM 08/27/20 22:08 08/27/20 22:13 DC 08/27/20 22:25 Haloperidol (Haldol) 10 mg STAT STAT IM 10/03/20 20:49 10/03/20 20:52 DC 10/03/20 20:57 Haloperidol (Haldol) 10 mg STAT STAT IM 10/04/20 19:55 10/04/20 19:57 DC 10/04/20 20:02 Haloperidol (Haldol) 10 mg STAT STAT IM 10/04/20 20:33 10/04/20 20:34 DC 10/04/20 20:40 Haloperidol (Haldol) 10 mg STAT STAT IM 10/05/20 17:07 10/05/20 17:13 DC 10/05/20 17:27 Haloperidol (Haldol) 10 mg STAT STAT IM 10/05/20 17:56 10/05/20 18:01 DC 10/05/20 18:18 Haloperidol (Haldol) 10 mg STAT STAT IM 10/05/20 21:19 10/05/20 21:21 DC 10/05/20 21:31 Haloperidol (Haldol) 10 mg STAT STAT PO 10/03/20 20:07 10/03/20 20:53 DC 10/03/20 20:12 Haloperidol (Haldol) 10 mg STAT STAT PO 10/03/20 20:45 10/03/20 20:46 Cancel Haloperidol (Haldol) 15 mg STAT STAT IM 09/29/20 21:43 09/29/20 21:46 DC 09/29/20 22:00 Home Med (Med Rec Complete!) ASDIRECTED XX 08/24/20 20:00 08/24/20 19:54 DC Hydroxyzine HCl (Atarax) 25 mg TID PO 09/05/20 16:00 09/07/20 06:57 DC 09/06/20 08:08 Hydroxyzine HCl (Atarax) 50 mg TID PO 09/07/20 09:00 09/11/20 10:26 DC 09/10/20 21:23 Hydroxyzine HCl (Atarax) 75 mg BID PO 09/13/20 09:00 10/01/20 08:39 DC 09/29/20 20:07 Hydroxyzine HCl (Atarax) 75 mg TID PO 09/11/20 16:00 09/13/20 11:11 DC 09/12/20 20:21 Hydroxyzine HCl (Atarax) 75 mg TID PO 09/13/20 09:00 09/13/20 11:16 DC Ibuprofen (Advil) 600 mg Q8HP PRN PO PAIN 08/26/20 19:00 09/25/20 18:59 DC 09/22/20 17:25 Lorazepam (Ativan) 1 mg STAT STAT IM 08/25/20 23:13 08/25/20 23:17 DC 08/25/20 23:26 Lorazepam (Ativan) 1 mg STAT STAT IM 08/26/20 21:32 08/26/20 21:34 DC 08/26/20 21:51 Lorazepam (Ativan) 1 mg STAT STAT IM 10/03/20 20:49 10/03/20 20:52 DC 10/03/20 20:56 Lorazepam (Ativan) 1 mg STAT STAT IM 10/12/20 00:51 10/12/20 00:53 DC 10/12/20 01:01 Lorazepam (Ativan) 1 mg STAT STAT IM 10/15/20 23:03 10/15/20 23:06 DC 10/15/20 23:16 Lorazepam (Ativan) 1 mg STAT STAT PO 10/03/20 20:45 10/03/20 20:46 Cancel Lorazepam (Ativan) 2 mg STAT STAT IM 08/27/20 22:08 08/27/20 22:13 DC 08/27/20 22:24 Lorazepam (Ativan) 2 mg STAT STAT IM 08/27/20 23:04 08/27/20 23:09 DC 08/27/20 23:14 Lorazepam (Ativan) 2 mg STAT STAT IM 09/29/20 21:43 09/29/20 21:46 DC 09/29/20 22:00 Lorazepam (Ativan) 2 mg STAT STAT IM 10/04/20 19:55 10/04/20 19:57 DC 10/04/20 20:02 Lorazepam (Ativan) 2 mg STAT STAT IM 10/04/20 20:33 10/04/20 20:34 DC 10/04/20 20:40 Lorazepam (Ativan) 2 mg STAT STAT IM 10/05/20 17:07 10/05/20 17:13 DC 10/05/20 17:27 Lorazepam (Ativan) 2 mg STAT STAT IM 10/05/20 17:56 10/05/20 18:01 DC 10/05/20 18:18 Lorazepam (Ativan) 2 mg STAT STAT IM 10/05/20 21:19 10/05/20 21:21 DC 10/05/20 21:31 Lorazepam (Ativan) 2 mg STAT STAT IV 08/27/20 23:00 08/27/20 23:09 DC Lorazepam (Ativan) 2 mg STAT STAT PO 10/03/20 20:07 10/03/20 20:09 DC 10/03/20 20:12 Magnesium Hydroxide (Milk Of Magnesia) 30 ml DAILYPRN PRN PO CONSTIPATION 08/24/20 19:15 Nicotine (Nicoderm Cq 14mg) 1 patch DAILY STAT TD 10/10/20 11:31 10/10/20 11:32 Cancel Olanzapine (ZyPREXA) 7.5 mg BID PO 09/12/20 09:00 09/12/20 08:05 DC Olanzapine (ZyPREXA) 10 mg BID PO 09/12/20 09:00 09/26/20 06:46 DC 09/23/20 22:16 Olanzapine (ZyPREXA) 15 mg BID PO 09/26/20 09:00 09/30/20 07:25 DC 09/28/20 19:40 Propranolol HCl (Inderal) 10 mg BID PO 10/08/20 09:00 10/14/20 16:23 DC 10/14/20 12:49 Propranolol HCl (Inderal) 10 mg BID@1200,2100 PO 10/14/20 21:00 10/16/20 12:44 Quetiapine Fumarate (SEROquel) 50 mg BID PO 10/08/20 09:00 10/14/20 16:22 DC 10/14/20 12:51 Quetiapine Fumarate (SEROquel) 50 mg BID@1200,2100 PO 10/14/20 21:00 10/16/20 12:44 Quetiapine Fumarate (SEROquel) 50 mg BIDP PO 09/30/20 17:15 09/30/20 17:43 DC Quetiapine Fumarate (SEROquel) 50 mg BIDP PRN PO anxiety 09/30/20 17:40 10/08/20 12:19 DC 10/07/20 22:07 Topiramate (TopAMAX) 200 mg BID PO 08/25/20 21:00 10/01/20 08:39 DC 09/28/20 19:40 Trazodone HCl (Desyrel) 50 mg QHSP PRN PO INSOMNIA 08/24/20 19:15 10/01/20 08:39 DC 08/31/20 21:59 Allergies Coded Allergies: haloperidol (Verified Adverse Reaction, Intermediate, LOCKJAW, 01/03/20) Has required & received this med many time without EPS noted risperidone (Verified Adverse Reaction, Mild, PSORIASIS, 11/26/19) IVIS HOPPER MD Oct 16, 2020 14:58
[2020-10-16] MEDS: ACETAMINOPHEN TAB 650MG DOSE (2X325MG) PO PRN (20:48)
[2020-10-16] MEDS: IBUPROFEN 600MG TAB PO PRN (23:45)
[2020-10-17] MEDS: MAALOX 30 ML SUSP *UDC PO PRN (02:09)
[2020-10-17] MEDS ORDERED: OLANZapine ORAL DISINTEGRATING TAB 5MG PO ONE (03:20)
[2020-10-17] MEDS: ACETAMINOPHEN TAB 650MG DOSE (2X325MG) PO PRN ×3 (09:04→23:29)
[2020-10-17] MEDS: CETIRIZINE (ZyrTEC) 10 MG TAB PO SCH ×2 (10:52→22:23)
[2020-10-17] MEDS: QUEtiapine FUMARATE 50MG TAB PO SCH ×2 (10:52→22:20)
[2020-10-17] MEDS: PROPRANOLOL 10 MG TAB PO SCH ×2 (10:53→22:23)
--- NOTE | 2020-10-17 15:49 | MHIPNPDOC ---
[facility] Progress Note Progress Note DATE OF SERVICE: 10/17/20 SUBJECTIVE: Pt showed again acting out behavior,She was coded yesterday and was kept on physical restraints.Today was acting out ,using profanity. OBJECTIVE: Patient has a long history of mental illness with multiple temper tantrums, behavioral problems, and several suicide attempts. Has been in and out of the hospitals, being refused by most hospitals. Has been in seclusion several times on the unit during this admission. Has been acting out, and had to be medicated and restrained. MENTAL STATUS EXAMINATION: Casually dressed with clean clothes, uncooperative. Makes poor eye contact. Speech, rate, rhythm, volume are good. Mood is anxious. Affect is full range. Thought process linear, goal directed. . Insight and judgment are poor. MEDICATIONS: - quetiapine 50 mg twice a day - propranolol 10 mg twice a day for akathisia DIAGNOSES: 1. Cyclothymia. 2. Borderline personality disorder. PLAN: Continue current medications..Will be closely monitored. TIME SPENT: 25 minutes. HISTORY: . Vital Signs Vital Signs Date Time Temp Pulse Resp B/P (MAP) Pulse Ox O2 Delivery O2 Flow Rate FiO2 10/16/20 20:48 90 130/78 10/16/20 17:49 97.0 18 99 10/16/20 17:13 Room Air Current Medications Current Medications Medications (Trade) Dose Ordered Sig/Brielle Route PRN Reason Start Time Stop Time Status Last Admin Dose Admin Acetaminophen (Tylenol Tab) 650 mg Q6HP PRN PO HEADACHE or DISCOMFORT 08/24/20 19:15 10/17/20 09:04 Al Hydrox/Mg Hydrox/Simethicone (Mylanta) 30 ml Q4HP PRN PO HEARTBURN/INDIGESTION 08/24/20 19:15 10/17/20 02:09 Aripiprazole (AbiLIFY) 10 mg BID PO 08/29/20 09:00 09/07/20 06:57 DC 09/06/20 20:12 Aripiprazole (AbiLIFY) 10 mg TID PO 09/07/20 09:00 09/13/20 11:15 DC 09/12/20 20:21 Cefdinir (Omnicef) 300 mg BID PO 08/26/20 21:00 09/03/20 13:13 DC 09/03/20 08:39 Cetirizine HCl (ZyrTEC) 10 mg BID PO 10/08/20 21:00 10/14/20 16:19 DC 10/14/20 12:52 Cetirizine HCl (ZyrTEC) 10 mg BID@1200,2100 PO 10/14/20 21:00 10/17/20 10:52 Cetirizine HCl (ZyrTEC) 10 mg DAILY PO 09/01/20 09:00 10/08/20 19:39 DC 10/07/20 09:05 Chlorpromazine HCl (Thorazine) 25 mg BID PO 08/25/20 21:00 08/29/20 09:28 DC 08/28/20 20:16 Chlorpromazine HCl (Thorazine) 25 mg TID PRN PO anxiety/agitation 08/25/20 17:45 10/01/20 08:39 DC 09/29/20 20:07 Chlorpromazine HCl (Thorazine) 50 mg STAT STAT IM 08/25/20 23:13 08/25/20 23:17 DC 08/25/20 23:26 Chlorpromazine HCl (Thorazine) 50 mg STAT STAT IM 08/26/20 21:32 08/26/20 21:34 DC 08/26/20 21:51 Chlorpromazine HCl (Thorazine) 100 mg BID PO 08/25/20 21:00 08/29/20 09:28 DC 08/28/20 20:16 Chlorpromazine HCl (Thorazine) 100 mg STAT STAT IM 10/10/20 23:54 10/10/20 23:56 DC 10/11/20 00:01 Chlorpromazine HCl (Thorazine) 100 mg STAT STAT IM 10/11/20 23:22 10/11/20 23:23 DC 10/11/20 23:27 Chlorpromazine HCl (Thorazine) 200 mg STAT STAT PO 10/02/20 14:54 10/02/20 14:56 DC 10/02/20 15:00 Diphenhydramine HCl (Benadryl) 50 mg STAT STAT IM 08/27/20 22:08 08/27/20 22:13 DC 08/27/20 22:24 Diphenhydramine HCl (Benadryl) 50 mg STAT STAT IM 08/27/20 23:04 08/27/20 23:09 DC 08/27/20 23:14 Diphenhydramine HCl (Benadryl) 50 mg STAT STAT IM 10/03/20 20:49 10/03/20 20:52 DC 10/03/20 20:56 Diphenhydramine HCl (Benadryl) 50 mg STAT STAT IM 10/04/20 19:55 10/04/20 19:57 DC 10/04/20 20:02 Diphenhydramine HCl (Benadryl) 50 mg STAT STAT IM 10/04/20 20:33 10/04/20 20:34 DC 10/04/20 20:40 Diphenhydramine HCl (Benadryl) 50 mg STAT STAT IM 10/05/20 17:07 10/05/20 17:13 DC 10/05/20 17:27 Diphenhydramine HCl (Benadryl) 50 mg STAT STAT IM 10/05/20 17:56 10/05/20 18:01 DC 10/05/20 18:18 Diphenhydramine HCl (Benadryl) 50 mg STAT STAT IM 10/05/20 21:19 10/05/20 21:21 DC 10/05/20 21:31 Diphenhydramine HCl (Benadryl) 50 mg STAT STAT IV 08/27/20 23:00 08/27/20 23:09 DC Diphenhydramine HCl (Benadryl) 50 mg STAT STAT PO 10/03/20 20:07 10/03/20 20:53 DC 10/03/20 20:13 Diphenhydramine HCl (Benadryl) 50 mg STAT STAT PO 10/03/20 20:45 10/03/20 20:46 Cancel Diphenhydramine HCl (Benadryl) 100 mg STAT STAT IM 09/29/20 21:43 09/29/20 21:46 DC 09/29/20 22:00 Divalproex Sodium (Depakote) 250 mg BID PO 09/12/20 09:00 09/13/20 12:00 DC 09/13/20 11:24 Divalproex Sodium (Depakote) 250 mg DAILY PO 09/14/20 09:00 09/30/20 07:25 DC 09/23/20 09:20 Divalproex Sodium (Depakote) 500 mg QHS PO 09/13/20 21:00 10/01/20 08:39 DC 09/28/20 19:40 Emollient Cream (Vanicream) PLEASE APPLY TO BOTH L... BIDP PRN TOP ITCHING/SWELLING 10/08/20 19:40 Haloperidol (Haldol) 5 mg STAT STAT IM 08/27/20 23:00 08/27/20 23:03 DC 08/27/20 23:14 Haloperidol (Haldol) 10 mg STAT STAT IM 08/27/20 22:08 08/27/20 22:13 DC 08/27/20 22:25 Haloperidol (Haldol) 10 mg STAT STAT IM 10/03/20 20:49 10/03/20 20:52 DC 10/03/20 20:57 Haloperidol (Haldol) 10 mg STAT STAT IM 10/04/20 19:55 10/04/20 19:57 DC 10/04/20 20:02 Haloperidol (Haldol) 10 mg STAT STAT IM 10/04/20 20:33 10/04/20 20:34 DC 10/04/20 20:40 Haloperidol (Haldol) 10 mg STAT STAT IM 10/05/20 17:07 10/05/20 17:13 DC 10/05/20 17:27 Haloperidol (Haldol) 10 mg STAT STAT IM 10/05/20 17:56 10/05/20 18:01 DC 10/05/20 18:18 Haloperidol (Haldol) 10 mg STAT STAT IM 10/05/20 21:19 10/05/20 21:21 DC 10/05/20 21:31 Haloperidol (Haldol) 10 mg STAT STAT PO 10/03/20 20:07 10/03/20 20:53 DC 10/03/20 20:12 Haloperidol (Haldol) 10 mg STAT STAT PO 10/03/20 20:45 10/03/20 20:46 Cancel Haloperidol (Haldol) 15 mg STAT STAT IM 09/29/20 21:43 09/29/20 21:46 DC 09/29/20 22:00 Home Med (Med Rec Complete!) ASDIRECTED XX 08/24/20 20:00 08/24/20 19:54 DC Hydroxyzine HCl (Atarax) 25 mg TID PO 09/05/20 16:00 09/07/20 06:57 DC 09/06/20 08:08 Hydroxyzine HCl (Atarax) 50 mg TID PO 09/07/20 09:00 09/11/20 10:26 DC 09/10/20 21:23 Hydroxyzine HCl (Atarax) 75 mg BID PO 09/13/20 09:00 10/01/20 08:39 DC 09/29/20 20:07 Hydroxyzine HCl (Atarax) 75 mg TID PO 09/11/20 16:00 09/13/20 11:11 DC 09/12/20 20:21 Hydroxyzine HCl (Atarax) 75 mg TID PO 09/13/20 09:00 09/13/20 11:16 DC Ibuprofen (Advil) 600 mg Q6HP PRN PO MODERATE PAIN (PS 5-7) 10/16/20 23:40 10/16/20 23:45 Ibuprofen (Advil) 600 mg Q8HP PRN PO PAIN 08/26/20 19:00 09/25/20 18:59 DC 09/22/20 17:25 Lorazepam (Ativan) 1 mg STAT STAT IM 08/25/20 23:13 08/25/20 23:17 DC 08/25/20 23:26 Lorazepam (Ativan) 1 mg STAT STAT IM 08/26/20 21:32 08/26/20 21:34 DC 08/26/20 21:51 Lorazepam (Ativan) 1 mg STAT STAT IM 10/03/20 20:49 10/03/20 20:52 DC 10/03/20 20:56 Lorazepam (Ativan) 1 mg STAT STAT IM 10/12/20 00:51 10/12/20 00:53 DC 10/12/20 01:01 Lorazepam (Ativan) 1 mg STAT STAT IM 10/15/20 23:03 10/15/20 23:06 DC 10/15/20 23:16 Lorazepam (Ativan) 1 mg STAT STAT PO 10/03/20 20:45 10/03/20 20:46 Cancel Lorazepam (Ativan) 2 mg STAT STAT IM 08/27/20 22:08 08/27/20 22:13 DC 08/27/20 22:24 Lorazepam (Ativan) 2 mg STAT STAT IM 08/27/20 23:04 08/27/20 23:09 DC 08/27/20 23:14 Lorazepam (Ativan) 2 mg STAT STAT IM 09/29/20 21:43 09/29/20 21:46 DC 09/29/20 22:00 Lorazepam (Ativan) 2 mg STAT STAT IM 10/04/20 19:55 10/04/20 19:57 DC 10/04/20 20:02 Lorazepam (Ativan) 2 mg STAT STAT IM 10/04/20 20:33 10/04/20 20:34 DC 10/04/20 20:40 Lorazepam (Ativan) 2 mg STAT STAT IM 10/05/20 17:07 10/05/20 17:13 DC 10/05/20 17:27 Lorazepam (Ativan) 2 mg STAT STAT IM 10/05/20 17:56 10/05/20 18:01 DC 10/05/20 18:18 Lorazepam (Ativan) 2 mg STAT STAT IM 10/05/20 21:19 10/05/20 21:21 DC 10/05/20 21:31 Lorazepam (Ativan) 2 mg STAT STAT IV 08/27/20 23:00 08/27/20 23:09 DC Lorazepam (Ativan) 2 mg STAT STAT PO 10/03/20 20:07 10/03/20 20:09 DC 10/03/20 20:12 Magnesium Hydroxide (Milk Of Magnesia) 30 ml DAILYPRN PRN PO CONSTIPATION 08/24/20 19:15 Nicotine (Nicoderm Cq 14mg) 1 patch DAILY STAT TD 10/10/20 11:31 10/10/20 11:32 Cancel Olanzapine (ZyPREXA) 7.5 mg BID PO 09/12/20 09:00 09/12/20 08:05 DC Olanzapine (ZyPREXA) 10 mg BID PO 09/12/20 09:00 09/26/20 06:46 DC 09/23/20 22:16 Olanzapine (ZyPREXA) 15 mg BID PO 09/26/20 09:00 09/30/20 07:25 DC 09/28/20 19:40 Propranolol HCl (Inderal) 10 mg BID PO 10/08/20 09:00 10/14/20 16:23 DC 10/14/20 12:49 Propranolol HCl (Inderal) 10 mg BID@1200,2100 PO 10/14/20 21:00 10/17/20 10:53 Quetiapine Fumarate (SEROquel) 50 mg BID PO 10/08/20 09:00 10/14/20 16:22 DC 10/14/20 12:51 Quetiapine Fumarate (SEROquel) 50 mg BID@1200,2100 PO 10/14/20 21:00 10/17/20 10:52 Quetiapine Fumarate (SEROquel) 50 mg BIDP PO 09/30/20 17:15 09/30/20 17:43 DC Quetiapine Fumarate (SEROquel) 50 mg BIDP PRN PO anxiety 09/30/20 17:40 10/08/20 12:19 DC 10/07/20 22:07 Topiramate (TopAMAX) 200 mg BID PO 08/25/20 21:00 10/01/20 08:39 DC 09/28/20 19:40 Trazodone HCl (Desyrel) 50 mg QHSP PRN PO INSOMNIA 08/24/20 19:15 10/01/20 08:39 DC 08/31/20 21:59 Allergies Coded Allergies: haloperidol (Verified Adverse Reaction, Intermediate, LOCKJAW, 01/03/20) Has required & received this med many time without EPS noted risperidone (Verified Adverse Reaction, Mild, PSORIASIS, 11/26/19) IVIS HOPPER MD Oct 17, 2020 15:49
[2020-10-18] MEDS: ACETAMINOPHEN TAB 650MG DOSE (2X325MG) PO PRN ×2 (10:19→21:50)
[2020-10-18] MEDS: QUEtiapine FUMARATE 50MG TAB PO SCH ×2 (12:12→21:27)
[2020-10-18] MEDS: CETIRIZINE (ZyrTEC) 10 MG TAB PO SCH ×2 (12:12→21:27)
[2020-10-18] MEDS: PROPRANOLOL 10 MG TAB PO SCH ×2 (12:13→21:27)
--- NOTE | 2020-10-18 15:41 | MHIPNPDOC ---
[facility] Progress Note Progress Note DATE OF SERVICE: 10/18/20 SUBJECTIVE: Pt showed again acting out behavior,She was coded yesterday and was kept on physical restraints.Today was acting out ,using profanity. Continues to show acting out behavior. OBJECTIVE: Patient has a long history of mental illness with multiple temper tantrums, behavioral problems, and several suicide attempts. Has been in and out of the hospitals, being refused by most hospitals. Has been in seclusion several times on the unit during this admission. Has been acting out, and had to be medicated and restrained yesterday. MENTAL STATUS EXAMINATION: Casually dressed with clean clothes, uncooperative. Makes poor eye contact. Speech, rate, rhythm, volume are good. Mood is anxious. Affect is full range. Thought process linear, goal directed. . Insight and judgment are poor. MEDICATIONS: - quetiapine 50 mg twice a day - propranolol 10 mg twice a day for akathisia DIAGNOSES: 1. Cyclothymia. 2. Borderline personality disorder. PLAN: Continue current medications..Will be closely monitored. TIME SPENT: 25 minutes.HISTORY: . Vital Signs Vital Signs Date Time Temp Pulse Resp B/P (MAP) Pulse Ox O2 Delivery O2 Flow Rate FiO2 10/18/20 12:13 69 168/80 10/16/20 17:49 97.0 18 99 10/16/20 17:13 Room Air Current Medications Current Medications Medications (Trade) Dose Ordered Sig/Brielle Route PRN Reason Start Time Stop Time Status Last Admin Dose Admin Acetaminophen (Tylenol Tab) 650 mg Q6HP PRN PO HEADACHE or DISCOMFORT 08/24/20 19:15 10/18/20 10:19 Al Hydrox/Mg Hydrox/Simethicone (Mylanta) 30 ml Q4HP PRN PO HEARTBURN/INDIGESTION 08/24/20 19:15 10/17/20 02:09 Aripiprazole (AbiLIFY) 10 mg BID PO 08/29/20 09:00 09/07/20 06:57 DC 09/06/20 20:12 Aripiprazole (AbiLIFY) 10 mg TID PO 09/07/20 09:00 09/13/20 11:15 DC 09/12/20 20:21 Cefdinir (Omnicef) 300 mg BID PO 08/26/20 21:00 09/03/20 13:13 DC 09/03/20 08:39 Cetirizine HCl (ZyrTEC) 10 mg BID PO 10/08/20 21:00 10/14/20 16:19 DC 10/14/20 12:52 Cetirizine HCl (ZyrTEC) 10 mg BID@1200,2100 PO 10/14/20 21:00 10/18/20 12:12 Cetirizine HCl (ZyrTEC) 10 mg DAILY PO 09/01/20 09:00 10/08/20 19:39 DC 10/07/20 09:05 Chlorpromazine HCl (Thorazine) 25 mg BID PO 08/25/20 21:00 08/29/20 09:28 DC 08/28/20 20:16 Chlorpromazine HCl (Thorazine) 25 mg TID PRN PO anxiety/agitation 08/25/20 17:45 10/01/20 08:39 DC 09/29/20 20:07 Chlorpromazine HCl (Thorazine) 50 mg STAT STAT IM 08/25/20 23:13 08/25/20 23:17 DC 08/25/20 23:26 Chlorpromazine HCl (Thorazine) 50 mg STAT STAT IM 08/26/20 21:32 08/26/20 21:34 DC 08/26/20 21:51 Chlorpromazine HCl (Thorazine) 100 mg BID PO 08/25/20 21:00 08/29/20 09:28 DC 08/28/20 20:16 Chlorpromazine HCl (Thorazine) 100 mg STAT STAT IM 10/10/20 23:54 10/10/20 23:56 DC 10/11/20 00:01 Chlorpromazine HCl (Thorazine) 100 mg STAT STAT IM 10/11/20 23:22 10/11/20 23:23 DC 10/11/20 23:27 Chlorpromazine HCl (Thorazine) 200 mg STAT STAT PO 10/02/20 14:54 10/02/20 14:56 DC 10/02/20 15:00 Diphenhydramine HCl (Benadryl) 50 mg STAT STAT IM 08/27/20 22:08 08/27/20 22:13 DC 08/27/20 22:24 Diphenhydramine HCl (Benadryl) 50 mg STAT STAT IM 08/27/20 23:04 08/27/20 23:09 DC 08/27/20 23:14 Diphenhydramine HCl (Benadryl) 50 mg STAT STAT IM 10/03/20 20:49 10/03/20 20:52 DC 10/03/20 20:56 Diphenhydramine HCl (Benadryl) 50 mg STAT STAT IM 10/04/20 19:55 10/04/20 19:57 DC 10/04/20 20:02 Diphenhydramine HCl (Benadryl) 50 mg STAT STAT IM 10/04/20 20:33 10/04/20 20:34 DC 10/04/20 20:40 Diphenhydramine HCl (Benadryl) 50 mg STAT STAT IM 10/05/20 17:07 10/05/20 17:13 DC 10/05/20 17:27 Diphenhydramine HCl (Benadryl) 50 mg STAT STAT IM 10/05/20 17:56 10/05/20 18:01 DC 10/05/20 18:18 Diphenhydramine HCl (Benadryl) 50 mg STAT STAT IM 10/05/20 21:19 10/05/20 21:21 DC 10/05/20 21:31 Diphenhydramine HCl (Benadryl) 50 mg STAT STAT IV 08/27/20 23:00 08/27/20 23:09 DC Diphenhydramine HCl (Benadryl) 50 mg STAT STAT PO 10/03/20 20:07 10/03/20 20:53 DC 10/03/20 20:13 Diphenhydramine HCl (Benadryl) 50 mg STAT STAT PO 10/03/20 20:45 10/03/20 20:46 Cancel Diphenhydramine HCl (Benadryl) 100 mg STAT STAT IM 09/29/20 21:43 09/29/20 21:46 DC 09/29/20 22:00 Divalproex Sodium (Depakote) 250 mg BID PO 09/12/20 09:00 09/13/20 12:00 DC 09/13/20 11:24 Divalproex Sodium (Depakote) 250 mg DAILY PO 09/14/20 09:00 09/30/20 07:25 DC 09/23/20 09:20 Divalproex Sodium (Depakote) 500 mg QHS PO 09/13/20 21:00 10/01/20 08:39 DC 09/28/20 19:40 Emollient Cream (Vanicream) PLEASE APPLY TO BOTH L... BIDP PRN TOP ITCHING/SWELLING 10/08/20 19:40 Haloperidol (Haldol) 5 mg STAT STAT IM 08/27/20 23:00 08/27/20 23:03 DC 08/27/20 23:14 Haloperidol (Haldol) 10 mg STAT STAT IM 08/27/20 22:08 08/27/20 22:13 DC 08/27/20 22:25 Haloperidol (Haldol) 10 mg STAT STAT IM 10/03/20 20:49 10/03/20 20:52 DC 10/03/20 20:57 Haloperidol (Haldol) 10 mg STAT STAT IM 10/04/20 19:55 10/04/20 19:57 DC 10/04/20 20:02 Haloperidol (Haldol) 10 mg STAT STAT IM 10/04/20 20:33 10/04/20 20:34 DC 10/04/20 20:40 Haloperidol (Haldol) 10 mg STAT STAT IM 10/05/20 17:07 10/05/20 17:13 DC 10/05/20 17:27 Haloperidol (Haldol) 10 mg STAT STAT IM 10/05/20 17:56 10/05/20 18:01 DC 10/05/20 18:18 Haloperidol (Haldol) 10 mg STAT STAT IM 10/05/20 21:19 10/05/20 21:21 DC 10/05/20 21:31 Haloperidol (Haldol) 10 mg STAT STAT PO 10/03/20 20:07 10/03/20 20:53 DC 10/03/20 20:12 Haloperidol (Haldol) 10 mg STAT STAT PO 10/03/20 20:45 10/03/20 20:46 Cancel Haloperidol (Haldol) 15 mg STAT STAT IM 09/29/20 21:43 09/29/20 21:46 DC 09/29/20 22:00 Home Med (Med Rec Complete!) ASDIRECTED XX 08/24/20 20:00 08/24/20 19:54 DC Hydroxyzine HCl (Atarax) 25 mg TID PO 09/05/20 16:00 09/07/20 06:57 DC 09/06/20 08:08 Hydroxyzine HCl (Atarax) 50 mg TID PO 09/07/20 09:00 09/11/20 10:26 DC 09/10/20 21:23 Hydroxyzine HCl (Atarax) 75 mg BID PO 09/13/20 09:00 10/01/20 08:39 DC 09/29/20 20:07 Hydroxyzine HCl (Atarax) 75 mg TID PO 09/11/20 16:00 09/13/20 11:11 DC 09/12/20 20:21 Hydroxyzine HCl (Atarax) 75 mg TID PO 09/13/20 09:00 09/13/20 11:16 DC Ibuprofen (Advil) 600 mg Q6HP PRN PO MODERATE PAIN (PS 5-7) 10/16/20 23:40 10/16/20 23:45 Ibuprofen (Advil) 600 mg Q8HP PRN PO PAIN 08/26/20 19:00 09/25/20 18:59 DC 09/22/20 17:25 Lorazepam (Ativan) 1 mg STAT STAT IM 08/25/20 23:13 08/25/20 23:17 DC 08/25/20 23:26 Lorazepam (Ativan) 1 mg STAT STAT IM 08/26/20 21:32 08/26/20 21:34 DC 08/26/20 21:51 Lorazepam (Ativan) 1 mg STAT STAT IM 10/03/20 20:49 10/03/20 20:52 DC 10/03/20 20:56 Lorazepam (Ativan) 1 mg STAT STAT IM 10/12/20 00:51 10/12/20 00:53 DC 10/12/20 01:01 Lorazepam (Ativan) 1 mg STAT STAT IM 10/15/20 23:03 10/15/20 23:06 DC 10/15/20 23:16 Lorazepam (Ativan) 1 mg STAT STAT PO 10/03/20 20:45 10/03/20 20:46 Cancel Lorazepam (Ativan) 2 mg STAT STAT IM 08/27/20 22:08 08/27/20 22:13 DC 08/27/20 22:24 Lorazepam (Ativan) 2 mg STAT STAT IM 08/27/20 23:04 08/27/20 23:09 DC 08/27/20 23:14 Lorazepam (Ativan) 2 mg STAT STAT IM 09/29/20 21:43 09/29/20 21:46 DC 09/29/20 22:00 Lorazepam (Ativan) 2 mg STAT STAT IM 10/04/20 19:55 10/04/20 19:57 DC 10/04/20 20:02 Lorazepam (Ativan) 2 mg STAT STAT IM 10/04/20 20:33 10/04/20 20:34 DC 10/04/20 20:40 Lorazepam (Ativan) 2 mg STAT STAT IM 10/05/20 17:07 10/05/20 17:13 DC 10/05/20 17:27 Lorazepam (Ativan) 2 mg STAT STAT IM 10/05/20 17:56 10/05/20 18:01 DC 10/05/20 18:18 Lorazepam (Ativan) 2 mg STAT STAT IM 10/05/20 21:19 10/05/20 21:21 DC 10/05/20 21:31 Lorazepam (Ativan) 2 mg STAT STAT IV 08/27/20 23:00 08/27/20 23:09 DC Lorazepam (Ativan) 2 mg STAT STAT PO 10/03/20 20:07 10/03/20 20:09 DC 10/03/20 20:12 Magnesium Hydroxide (Milk Of Magnesia) 30 ml DAILYPRN PRN PO CONSTIPATION 08/24/20 19:15 Nicotine (Nicoderm Cq 14mg) 1 patch DAILY STAT TD 10/10/20 11:31 10/10/20 11:32 Cancel Olanzapine (ZyPREXA) 7.5 mg BID PO 09/12/20 09:00 09/12/20 08:05 DC Olanzapine (ZyPREXA) 10 mg BID PO 09/12/20 09:00 09/26/20 06:46 DC 09/23/20 22:16 Olanzapine (ZyPREXA) 15 mg BID PO 09/26/20 09:00 09/30/20 07:25 DC 09/28/20 19:40 Propranolol HCl (Inderal) 10 mg BID PO 10/08/20 09:00 10/14/20 16:23 DC 10/14/20 12:49 Propranolol HCl (Inderal) 10 mg BID@1200,2100 PO 10/14/20 21:00 10/18/20 12:13 Quetiapine Fumarate (SEROquel) 50 mg BID PO 10/08/20 09:00 10/14/20 16:22 DC 10/14/20 12:51 Quetiapine Fumarate (SEROquel) 50 mg BID@1200,2100 PO 10/14/20 21:00 10/18/20 12:12 Quetiapine Fumarate (SEROquel) 50 mg BIDP PO 09/30/20 17:15 09/30/20 17:43 DC Quetiapine Fumarate (SEROquel) 50 mg BIDP PRN PO anxiety 09/30/20 17:40 10/08/20 12:19 DC 10/07/20 22:07 Topiramate (TopAMAX) 200 mg BID PO 08/25/20 21:00 10/01/20 08:39 DC 09/28/20 19:40 Trazodone HCl (Desyrel) 50 mg QHSP PRN PO INSOMNIA 08/24/20 19:15 10/01/20 08:39 DC 08/31/20 21:59 Allergies Coded Allergies: haloperidol (Verified Adverse Reaction, Intermediate, LOCKJAW, 01/03/20) Has required & received this med many time without EPS noted risperidone (Verified Adverse Reaction, Mild, PSORIASIS, 11/26/19) IVIS HOPPER MD Oct 18, 2020 15:41
[2020-10-18 19:34] VITALS: BP 145/64
[2020-10-18] MEDS: OLANZapine ORAL DISINTEGRATING TAB 5MG PO PRN (23:19)
[2020-10-19] MEDS ORDERED: chlorproMAZINE 25 MG TABLET PO ONE (00:45)
[2020-10-19] MEDS: ACETAMINOPHEN TAB 650MG DOSE (2X325MG) PO PRN ×2 (04:39→15:13)
[2020-10-19 08:14] VITALS: BP 115/56
[2020-10-19] MEDS: CETIRIZINE (ZyrTEC) 10 MG TAB PO SCH ×2 (11:56→22:08)
[2020-10-19] MEDS: QUEtiapine FUMARATE 50MG TAB PO SCH ×2 (11:57→21:00)
[2020-10-19] MEDS: PROPRANOLOL 10 MG TAB PO SCH ×2 (11:57→22:11)
[2020-10-19 16:44] VITALS: BP 121/64
[2020-10-19] MEDS: OLANZapine ORAL DISINTEGRATING TAB 5MG PO PRN (19:50)
[2020-10-19] MEDS: ChlorproMAZINE 100 MG TABLET PO PRN (22:33)
[2020-10-20] MEDS: QUEtiapine FUMARATE 50MG TAB PO SCH ×2 (11:55→21:15)
[2020-10-20] MEDS: CETIRIZINE (ZyrTEC) 10 MG TAB PO SCH ×2 (11:55→21:15)
[2020-10-20] MEDS: PROPRANOLOL 10 MG TAB PO SCH ×2 (11:56→21:15)
[2020-10-20 19:04] VITALS: BP 146/74
[2020-10-20] MEDS: OLANZapine ORAL DISINTEGRATING TAB 5MG PO PRN (23:05)
[2020-10-21] MEDS: IBUPROFEN 600MG TAB PO PRN (09:33)
[2020-10-21] MEDS: QUEtiapine FUMARATE 50MG TAB PO SCH (11:34)
[2020-10-21] MEDS: CETIRIZINE (ZyrTEC) 10 MG TAB PO SCH ×2 (11:34→22:28)
[2020-10-21] MEDS: PROPRANOLOL 10 MG TAB PO SCH ×2 (11:34→22:28)
[2020-10-21 11:35] VITALS: BP 129/61
--- NOTE | 2020-10-21 13:57 | MHIPNPDOC ---
[facility] Progress Note Progress Note DATE OF SERVICE: 10/21/20 SUBJECTIVE: Pt showed again acting out behavior,She was coded yesterday and was kept on physical restraints.Today was acting out ,using profanity. Continues to show acting out behavior.Seen screaming,shouting, hostile attitude OBJECTIVE: Patient has a long history of mental illness with multiple temper tantrums, behavioral problems, and several suicide attempts. Has been in and out of the hospitals, being refused by most hospitals. Has been in seclusion several times on the unit during this admission. Has been acting out, and had to be medicated and restrained yesterday. Reported suicide attempt by tieing cloth around her neck.intermittently taking her medications MENTAL STATUS EXAMINATION: Casually dressed with clean clothes, uncooperative. Makes poor eye contact. Speech, rate, rhythm, volume are good. Mood is anxious. Affect is full range. Thought process linear, goal directed. . Insight and judgm ent are poor. MEDICATIONS: - quetiapine 50 mg twice a day - propranolol 10 mg twice a day for akathisia DIAGNOSES: 1. Cyclothymia. 2. Borderline personality disorder. PLAN: Continue current medications..Will be closely monitored. TIME SPENT: 25 minutes.HISTORY: . Vital Signs Vital Signs Date Time Temp Pulse Resp B/P (MAP) Pulse Ox O2 Delivery O2 Flow Rate FiO2 10/21/20 11:35 98.1 60 16 129/61 (83) 98 Room Air Current Medications Current Medications Medications (Trade) Dose Ordered Sig/Brielle Route PRN Reason Start Time Stop Time Status Last Admin Dose Admin Acetaminophen (Tylenol Tab) 650 mg Q6HP PRN PO HEADACHE or DISCOMFORT 08/24/20 19:15 10/19/20 15:13 Al Hydrox/Mg Hydrox/Simethicone (Mylanta) 30 ml Q4HP PRN PO HEARTBURN/INDIGESTION 08/24/20 19:15 10/17/20 02:09 Aripiprazole (AbiLIFY) 10 mg BID PO 08/29/20 09:00 09/07/20 06:57 DC 09/06/20 20:12 Aripiprazole (AbiLIFY) 10 mg TID PO 09/07/20 09:00 09/13/20 11:15 DC 09/12/20 20:21 Cefdinir (Omnicef) 300 mg BID PO 08/26/20 21:00 09/03/20 13:13 DC 09/03/20 08:39 Cetirizine HCl (ZyrTEC) 10 mg BID PO 10/08/20 21:00 10/14/20 16:19 DC 10/14/20 12:52 Cetirizine HCl (ZyrTEC) 10 mg BID@1200,2100 PO 10/14/20 21:00 10/21/20 11:34 Cetirizine HCl (ZyrTEC) 10 mg DAILY PO 09/01/20 09:00 10/08/20 19:39 DC 10/07/20 09:05 Chlorpromazine HCl (Thorazine) 25 mg BID PO 08/25/20 21:00 08/29/20 09:28 DC 08/28/20 20:16 Chlorpromazine HCl (Thorazine) 25 mg TID PRN PO anxiety/agitation 08/25/20 17:45 10/01/20 08:39 DC 09/29/20 20:07 Chlorpromazine HCl (Thorazine) 50 mg STAT STAT IM 08/25/20 23:13 08/25/20 23:17 DC 08/25/20 23:26 Chlorpromazine HCl (Thorazine) 50 mg STAT STAT IM 08/26/20 21:32 08/26/20 21:34 DC 08/26/20 21:51 Chlorpromazine HCl (Thorazine) 100 mg BID PO 08/25/20 21:00 08/29/20 09:28 DC 08/28/20 20:16 Chlorpromazine HCl (Thorazine) 100 mg QHSP PRN PO SLEEP 10/19/20 22:15 10/19/20 22:33 Chlorpromazine HCl (Thorazine) 100 mg STAT STAT IM 10/10/20 23:54 10/10/20 23:56 DC 10/11/20 00:01 Chlorpromazine HCl (Thorazine) 100 mg STAT STAT IM 10/11/20 23:22 10/11/20 23:23 DC 10/11/20 23:27 Chlorpromazine HCl (Thorazine) 200 mg STAT STAT PO 10/02/20 14:54 10/02/20 14:56 DC 10/02/20 15:00 Diphenhydramine HCl (Benadryl) 50 mg STAT STAT IM 08/27/20 22:08 08/27/20 22:13 DC 08/27/20 22:24 Diphenhydramine HCl (Benadryl) 50 mg STAT STAT IM 08/27/20 23:04 08/27/20 23:09 DC 08/27/20 23:14 Diphenhydramine HCl (Benadryl) 50 mg STAT STAT IM 10/03/20 20:49 10/03/20 20:52 DC 10/03/20 20:56 Diphenhydramine HCl (Benadryl) 50 mg STAT STAT IM 10/04/20 19:55 10/04/20 19:57 DC 10/04/20 20:02 Diphenhydramine HCl (Benadryl) 50 mg STAT STAT IM 10/04/20 20:33 10/04/20 20:34 DC 10/04/20 20:40 Diphenhydramine HCl (Benadryl) 50 mg STAT STAT IM 10/05/20 17:07 10/05/20 17:13 DC 10/05/20 17:27 Diphenhydramine HCl (Benadryl) 50 mg STAT STAT IM 10/05/20 17:56 10/05/20 18:01 DC 10/05/20 18:18 Diphenhydramine HCl (Benadryl) 50 mg STAT STAT IM 10/05/20 21:19 10/05/20 21:21 DC 10/05/20 21:31 Diphenhydramine HCl (Benadryl) 50 mg STAT STAT IV 08/27/20 23:00 08/27/20 23:09 DC Diphenhydramine HCl (Benadryl) 50 mg STAT STAT PO 10/03/20 20:07 10/03/20 20:53 DC 10/03/20 20:13 Diphenhydramine HCl (Benadryl) 50 mg STAT STAT PO 10/03/20 20:45 10/03/20 20:46 Cancel Diphenhydramine HCl (Benadryl) 100 mg STAT STAT IM 09/29/20 21:43 09/29/20 21:46 DC 09/29/20 22:00 Divalproex Sodium (Depakote) 250 mg BID PO 09/12/20 09:00 09/13/20 12:00 DC 09/13/20 11:24 Divalproex Sodium (Depakote) 250 mg DAILY PO 09/14/20 09:00 09/30/20 07:25 DC 09/23/20 09:20 Divalproex Sodium (Depakote) 500 mg QHS PO 09/13/20 21:00 10/01/20 08:39 DC 09/28/20 19:40 Emollient Cream (Vanicream) PLEASE APPLY TO BOTH L... BIDP PRN TOP ITCHING/SWELLING 10/08/20 19:40 Haloperidol (Haldol) 5 mg STAT STAT IM 08/27/20 23:00 08/27/20 23:03 DC 08/27/20 23:14 Haloperidol (Haldol) 10 mg STAT STAT IM 08/27/20 22:08 08/27/20 22:13 DC 08/27/20 22:25 Haloperidol (Haldol) 10 mg STAT STAT IM 10/03/20 20:49 10/03/20 20:52 DC 10/03/20 20:57 Haloperidol (Haldol) 10 mg STAT STAT IM 10/04/20 19:55 10/04/20 19:57 DC 10/04/20 20:02 Haloperidol (Haldol) 10 mg STAT STAT IM 10/04/20 20:33 10/04/20 20:34 DC 10/04/20 20:40 Haloperidol (Haldol) 10 mg STAT STAT IM 10/05/20 17:07 10/05/20 17:13 DC 10/05/20 17:27 Haloperidol (Haldol) 10 mg STAT STAT IM 10/05/20 17:56 10/05/20 18:01 DC 10/05/20 18:18 Haloperidol (Haldol) 10 mg STAT STAT IM 10/05/20 21:19 10/05/20 21:21 DC 10/05/20 21:31 Haloperidol (Haldol) 10 mg STAT STAT PO 10/03/20 20:07 10/03/20 20:53 DC 10/03/20 20:12 Haloperidol (Haldol) 10 mg STAT STAT PO 10/03/20 20:45 10/03/20 20:46 Cancel Haloperidol (Haldol) 15 mg STAT STAT IM 09/29/20 21:43 09/29/20 21:46 DC 09/29/20 22:00 Home Med (Med Rec Complete!) ASDIRECTED XX 08/24/20 20:00 08/24/20 19:54 DC Hydroxyzine HCl (Atarax) 25 mg TID PO 09/05/20 16:00 09/07/20 06:57 DC 09/06/20 08:08 Hydroxyzine HCl (Atarax) 50 mg TID PO 09/07/20 09:00 09/11/20 10:26 DC 09/10/20 21:23 Hydroxyzine HCl (Atarax) 75 mg BID PO 09/13/20 09:00 10/01/20 08:39 DC 09/29/20 20:07 Hydroxyzine HCl (Atarax) 75 mg TID PO 09/11/20 16:00 09/13/20 11:11 DC 09/12/20 20:21 Hydroxyzine HCl (Atarax) 75 mg TID PO 09/13/20 09:00 09/13/20 11:16 DC Ibuprofen (Advil) 600 mg Q6HP PRN PO MODERATE PAIN (PS 5-7) 10/16/20 23:40 10/21/20 09:33 Ibuprofen (Advil) 600 mg Q8HP PRN PO PAIN 08/26/20 19:00 09/25/20 18:59 DC 09/22/20 17:25 Lorazepam (Ativan) 1 mg STAT STAT IM 08/25/20 23:13 08/25/20 23:17 DC 08/25/20 23:26 Lorazepam (Ativan) 1 mg STAT STAT IM 08/26/20 21:32 08/26/20 21:34 DC 08/26/20 21:51 Lorazepam (Ativan) 1 mg STAT STAT IM 10/03/20 20:49 10/03/20 20:52 DC 10/03/20 20:56 Lorazepam (Ativan) 1 mg STAT STAT IM 10/12/20 00:51 10/12/20 00:53 DC 10/12/20 01:01 Lorazepam (Ativan) 1 mg STAT STAT IM 10/15/20 23:03 10/15/20 23:06 DC 10/15/20 23:16 Lorazepam (Ativan) 1 mg STAT STAT PO 10/03/20 20:45 10/03/20 20:46 Cancel Lorazepam (Ativan) 2 mg STAT STAT IM 08/27/20 22:08 08/27/20 22:13 DC 08/27/20 22:24 Lorazepam (Ativan) 2 mg STAT STAT IM 08/27/20 23:04 08/27/20 23:09 DC 08/27/20 23:14 Lorazepam (Ativan) 2 mg STAT STAT IM 09/29/20 21:43 09/29/20 21:46 DC 09/29/20 22:00 Lorazepam (Ativan) 2 mg STAT STAT IM 10/04/20 19:55 10/04/20 19:57 DC 10/04/20 20:02 Lorazepam (Ativan) 2 mg STAT STAT IM 10/04/20 20:33 10/04/20 20:34 DC 10/04/20 20:40 Lorazepam (Ativan) 2 mg STAT STAT IM 10/05/20 17:07 10/05/20 17:13 DC 10/05/20 17:27 Lorazepam (Ativan) 2 mg STAT STAT IM 10/05/20 17:56 10/05/20 18:01 DC 10/05/20 18:18 Lorazepam (Ativan) 2 mg STAT STAT IM 10/05/20 21:19 10/05/20 21:21 DC 10/05/20 21:31 Lorazepam (Ativan) 2 mg STAT STAT IV 08/27/20 23:00 08/27/20 23:09 DC Lorazepam (Ativan) 2 mg STAT STAT PO 10/03/20 20:07 10/03/20 20:09 DC 10/03/20 20:12 Magnesium Hydroxide (Milk Of Magnesia) 30 ml DAILYPRN PRN PO CONSTIPATION 08/24/20 19:15 Miscellaneous (Unresolved Clarification Entry) SEE LABEL COMMENTS DAILY XX 10/20/20 09:00 10/21/20 08:48 DC Nicotine (Nicoderm Cq 14mg) 1 patch DAILY STAT TD 10/10/20 11:31 10/10/20 11:32 Cancel Olanzapine (ZyPREXA ZYDIS) 5 mg Q6HP PRN PO ANXIETY/AGITATION 10/18/20 23:05 10/20/20 23:05 Olanzapine (ZyPREXA) 7.5 mg BID PO 09/12/20 09:00 09/12/20 08:05 DC Olanzapine (ZyPREXA) 10 mg BID PO 09/12/20 09:00 09/26/20 06:46 DC 09/23/20 22:16 Olanzapine (ZyPREXA) 15 mg BID PO 09/26/20 09:00 09/30/20 07:25 DC 09/28/20 19:40 Propranolol HCl (Inderal) 10 mg BID PO 10/08/20 09:00 10/14/20 16:23 DC 10/14/20 12:49 Propranolol HCl (Inderal) 10 mg BID@1200,2100 PO 10/14/20 21:00 10/21/20 11:34 Quetiapine Fumarate (SEROquel) 50 mg BID PO 10/08/20 09:00 10/14/20 16:22 DC 10/14/20 12:51 Quetiapine Fumarate (SEROquel) 50 mg BID@1200,2100 PO 10/14/20 21:00 10/21/20 11:34 Quetiapine Fumarate (SEROquel) 50 mg BIDP PO 09/30/20 17:15 09/30/20 17:43 DC Quetiapine Fumarate (SEROquel) 50 mg BIDP PRN PO anxiety 09/30/20 17:40 10/08/20 12:19 DC 10/07/20 22:07 Topiramate (TopAMAX) 200 mg BID PO 08/25/20 21:00 10/01/20 08:39 DC 09/28/20 19:40 Trazodone HCl (Desyrel) 50 mg QHSP PRN PO INSOMNIA 08/24/20 19:15 10/01/20 08:39 DC 08/31/20 21:59 Allergies Coded Allergies: haloperidol (Verified Adverse Reaction, Intermediate, LOCKJAW, 01/03/20) Has required & received this med many time without EPS noted risperidone (Verified Adverse Reaction, Mild, PSORIASIS, 11/26/19) IVIS HOPPER MD Oct 21, 2020 13:57
[2020-10-21] MEDS: OLANZapine ORAL DISINTEGRATING TAB 5MG PO PRN (19:42)
[2020-10-21] MEDS ORDERED: QUEtiapine FUMARATE 25 MG TAB PO SCH (21:00)
[2020-10-21] MEDS: ChlorproMAZINE 100 MG TABLET PO PRN (23:41)
[2020-10-22] MEDS ORDERED: QUEtiapine FUMARATE 50MG TAB PO SCH (09:00)
[2020-10-22] MEDS ORDERED: CETI10TA PO (11:17)
[2020-10-22] MEDS ORDERED: QUET25TA3 PO (11:17)
[2020-10-22] MEDS ORDERED: PROP10TA56 PO (11:17)
[2020-10-22] MEDS ORDERED: QUET50TA3 PO (11:17)
[2020-10-22 12:05] VITALS: BP 134/84
[2020-10-22] MEDS: PROPRANOLOL 10 MG TAB PO SCH (12:05)
[2020-10-22] MEDS: CETIRIZINE (ZyrTEC) 10 MG TAB PO SCH (12:05)
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
== END 2020-10-22 12:30 | disposition home or self-care (01) | DRG 753 ==
LOC: M ED 15:52 → M ED INP 19:13 → M PSY 21:10
PROVIDERS: ADMIT Psychiatry & Neurology Psychiatry; ATTEND Psychiatry & Neurology Psychiatry
DX: F34.0 Cyclothymic disorder (principal); Z78.1 Physical restraint status; R45.851 Suicidal ideations; F31.9 Bipolar disorder, unspecified; F60.2 Antisocial personality disorder; F60.3 Borderline personality disorder; F63.9 Impulse disorder, unspecified; F41.9 Anxiety disorder, unspecified; F43.10 Post-traumatic stress disorder, unspecified; F90.9 Attention-deficit hyperactivity disorder, unspecified type; E66.9 Obesity, unspecified; N39.0 Urinary tract infection, site not specified; M25.572 Pain in left ankle and joints of left foot; R10.13 Epigastric pain; Z62.810 Personal history of physical and sexual abuse in childhood; Z62.811 Personal history of psychological abuse in childhood; Z63.8 Other specified problems related to primary support group; Z79.899 Other long term (current) drug therapy; Z88.8 Allergy status to other drugs, medicaments and biological substances; Z68.53 Body mass index [BMI] pediatric, 85th percentile to less than 95th percentile for age; Z91.5 Personal history of self-harm; Z91.19 Patient's noncompliance with other medical treatment and regimen

== ENCOUNTER 2020-10-22 21:40 | Emergency (ER) | payer OTHER ==
[~2020-10-22] VITALS: Ht 167.6 cm; Wt 125.0 kg
[~2020-10-22 21:40] MED LIST changes: +PROP10TA56 PO; +QUET25TA3 PO; +QUET50TA3 PO
[2020-10-22] MEDS ORDERED: CHARCOAL ACTIVATED LIQUID 25 GM/120 ML BTL PO ONE ×2 (21:50)
[2020-10-22 22:49] LABS: AMPHETAMINES LEVEL URINE NEGATIVE (NEGATIVE); BARBITURATES URINE NEGATIVE (NEGATIVE); BENZODIAZEPINES URINE NEGATIVE (NEGATIVE); CANNABINOIDS URINE NEGATIVE (NEGATIVE); COCAINE METABOLITE URINE NEGATIVE (NEGATIVE); METHADONE URINE NEGATIVE (NEGATIVE); OPIATES URINE NEGATIVE (NEGATIVE); PHENCYCLIDINE URINE NEGATIVE (NEGATIVE)
[2020-10-22 23:03] LABS: HEMATOCRIT 39.1 % (36.0-47.0); HEMOGLOBIN 12.9 g/dl (12.0-15.5); MEAN CORPUSCULAR HEMOGLOBIN 29.9 pg (27.0-33.0); MEAN CORPUSCULAR VOLUME 90.5 fl (80.0-96.0); PLATELET COUNT, AUTOMATED 216 10^3/uL (150-450); RED BLOOD COUNT 4.32 10^6/uL (4.00-5.40); WHITE BLOOD COUNT 7.7 10^3/uL (4.0-10.0)
[2020-10-22 23:20] LABS: HCG, SERUM QUALITATIVE NEGATIVE (NEGATIVE)
[2020-10-22 23:34] LABS: ACETAMINOPHEN LEVEL < 2.0 UG/ML (10.0-30.0); ALBUMIN 4.1 GM/DL (3.2-5.2); ALT/SGPT 39 U/L (12-78); BILIRUBIN,DIRECT 0.2 MG/DL (0.0-0.2); BILIRUBIN,TOTAL 0.5 MG/DL (0.2-1.0); BLOOD UREA NITROGEN 12 MG/DL (7-18); CALCIUM LEVEL 9.2 MG/DL (8.5-10.1); CARBON DIOXIDE LEVEL 24 MEQ/L (21-32); CHLORIDE LEVEL 106 MEQ/L (98-107); CREATININE FOR GFR 0.59 MG/DL (0.55-1.30); ETHYL ALCOHOL (ETHANOL) < 0.003 % (0.000-0.010); GLUCOSE, FASTING 107 MG/DL (70-100); POTASSIUM SERUM 3.3 MEQ/L (3.5-5.1); SALICYLATE LEVEL < 1.7 MG/DL (5.0-30.0); SODIUM LEVEL 140 MEQ/L (136-145); TOTAL PROTEIN 7.3 GM/DL (6.4-8.2)
--- NOTE | 2020-10-23 08:08 | ECGEPIP ---
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
[2020-10-23 12:00] VITALS: BP 142/92
--- NOTE | 2020-10-23 12:18 | MHCR ---
[facility] CONSULTATION DATE: 10/23/2020 IDENTIFYING DATA: She is a 20-year-old female, homeless, who was discharged yesterday from inpatient mental health unit ([facility]). She was in the emergency room (ER) reporting that she overdosed on medications which were prescribed to her yesterday as a suicidal gesture. MENTAL STATUS EXAMINATION: Laying in her bed sleeping, though cooperative. Reluctant to talk. Reported, "I don't want to talk about anything." Patient has an appointment with the therapist today at 1:00 p.m. Patient currently is not willing to talk. Pharmacy reported that she has not filled her medication, so it is unlikely that she overdosed on the medication that she was prescribed. DIAGNOSES: 1. Cyclothymia. 2. Borderline personality disorder. PLAN: Discharge her back and send her to her therapist for followup. It was decided in the team, which consisted of the social media assistant from the unit, social media assistant in the ER, doctor in the ER and Ms. Maria Elena Mitchell, the director of inpatient service of psychiatry and all of us agreed that patient can be safely discharged home, because this is the pattern; multiple times comes to the emergency room trying to get into the inpatient unit and this is not a proper setting for her to stay and the best treatment option for her would be outpatient treatment with dialectical behavior therapy (DBT) or cognitive behavioral, which she will have as an outpatient, which was explained to her and patient was discharged.
== END 2020-10-23 12:00 | disposition home or self-care (01) ==
LOC: M ED 21:40
DX: F43.0 Acute stress reaction (principal); T50.902A Poisoning by unspecified drugs, medicaments and biological substances, intentional self-harm, initial encounter; F34.0 Cyclothymic disorder; F43.10 Post-traumatic stress disorder, unspecified; Z79.899 Other long term (current) drug therapy; Z88.8 Allergy status to other drugs, medicaments and biological substances

== ENCOUNTER 2020-10-23 16:48 | Emergency (ER) | payer OTHER ==
[~2020-10-23] VITALS: Ht 167.6 cm; Wt 100.0 kg
[2020-10-23 18:06] LABS: HEMATOCRIT 42.4 % (36.0-47.0); HEMOGLOBIN 13.8 g/dl (12.0-15.5); MEAN CORPUSCULAR HEMOGLOBIN 30.3 pg (27.0-33.0); MEAN CORPUSCULAR HGB CONC 32.5 g/dl (32.0-36.5); PLATELET COUNT, AUTOMATED 236 10^3/uL (150-450); RED BLOOD COUNT 4.56 10^6/uL (4.00-5.40); WHITE BLOOD COUNT 5.6 10^3/uL (4.0-10.0)
[2020-10-23 18:31] LABS: HCG, SERUM QUALITATIVE NEGATIVE (NEGATIVE)
[2020-10-23 18:48] LABS: ACETAMINOPHEN LEVEL < 2.0 UG/ML (10.0-30.0); ALBUMIN 4.2 GM/DL (3.2-5.2); ALT/SGPT 44 U/L (12-78); BILIRUBIN,DIRECT 0.2 MG/DL (0.0-0.2); BILIRUBIN,TOTAL 0.5 MG/DL (0.2-1.0); BLOOD UREA NITROGEN 15 MG/DL (7-18); CALCIUM LEVEL 9.9 MG/DL (8.5-10.1); CARBON DIOXIDE LEVEL 23 MEQ/L (21-32); CHLORIDE LEVEL 108 MEQ/L (98-107); CREATININE FOR GFR 0.71 MG/DL (0.55-1.30); ETHYL ALCOHOL (ETHANOL) < 0.003 % (0.000-0.010); GLUCOSE, FASTING 87 MG/DL (70-100); POTASSIUM SERUM 4.1 MEQ/L (3.5-5.1); SALICYLATE LEVEL < 1.7 MG/DL (5.0-30.0); SODIUM LEVEL 140 MEQ/L (136-145); THYROID STIMULATING HORMONE 0.747 uIU/ML (0.463-3.98); TOTAL PROTEIN 7.6 GM/DL (6.4-8.2)
[2020-10-23 19:34] LABS: AMPHETAMINES LEVEL URINE NEGATIVE (NEGATIVE); BARBITURATES URINE NEGATIVE (NEGATIVE); BENZODIAZEPINES URINE NEGATIVE (NEGATIVE); CANNABINOIDS URINE NEGATIVE (NEGATIVE); COCAINE METABOLITE URINE NEGATIVE (NEGATIVE); METHADONE URINE NEGATIVE (NEGATIVE); OPIATES URINE NEGATIVE (NEGATIVE); PHENCYCLIDINE URINE NEGATIVE (NEGATIVE)
--- NOTE | 2020-10-23 21:19 | MHCR ---
CONSULTATION DATE: 10/23/2020 SUBJECTIVE: She is in the E.R. Reportedly she overdosed on seven tablets of Trazodone 50 mg. She was discharged yesterday. Trazodone was not prescribed to her. She reports that it is her old medication left with her. However she reports she is fine now. She wants to go back home. The team of social workers, nurses and Liliane Mitchell the director, we all have decided on a treatment plan. She will be going to a residential facility for further treatment, possibly a DBT treatment. She was told about that today and she agreed to wait until then. MENTAL STATUS EXAMINATION: Casually dressed, cooperative. She is not agitated. Mood is anxious. Denied any auditory or visual hallucinations. Did not mention about any suicidal or homicidal ideas. Her insight and judgment are limited. DIAGNOSIS: 1. Cyclothymia. 2. Borderline personality disorder. PLAN: The plan is to discharge her home and inform her when accepted by the facility. The patient reports she is going to see her therapist next week. She wants to be complaint with her medications. VITAL SIGNS: Her vital signs are good. REVIEW OF SYSTEMS: She denied any chest pain, palpitations, denied any abdominal pain, dysuria. Denied any cough or shortness of breath. DISPOSITION: The patient will be discharged home ,she is not a danger to self or others. ROSSY
[2020-10-23 21:30] VITALS: BP 120/57
--- NOTE | 2020-10-24 10:15 | ECGEPIP ---
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
== END 2020-10-23 21:32 | disposition home or self-care (01) ==
LOC: EDBD 16:48 → M ED 16:48
DX: R45.851 Suicidal ideations (principal); F60.3 Borderline personality disorder; Z79.899 Other long term (current) drug therapy; Z88.8 Allergy status to other drugs, medicaments and biological substances

== ENCOUNTER 2020-10-23 23:54 | Emergency (ER) | payer OTHER ==
[~2020-10-23] VITALS: Ht 167.6 cm; Wt 100.0 kg
[2020-10-24 02:04] LABS: HEMATOCRIT 39.5 % (36.0-47.0); HEMOGLOBIN 12.8 g/dl (12.0-15.5); MEAN CORPUSCULAR HGB CONC 32.4 g/dl (32.0-36.5); MEAN CORPUSCULAR VOLUME 92.5 fl (80.0-96.0); PLATELET COUNT, AUTOMATED 236 10^3/uL (150-450); RED BLOOD COUNT 4.27 10^6/uL (4.00-5.40); WHITE BLOOD COUNT 7.5 10^3/uL (4.0-10.0)
[2020-10-24 02:38] LABS: HCG, SERUM QUALITATIVE NEGATIVE (NEGATIVE)
[2020-10-24 02:44] LABS: AMPHETAMINES LEVEL URINE NEGATIVE (NEGATIVE); BARBITURATES URINE NEGATIVE (NEGATIVE); BENZODIAZEPINES URINE NEGATIVE (NEGATIVE); CANNABINOIDS URINE NEGATIVE (NEGATIVE); COCAINE METABOLITE URINE NEGATIVE (NEGATIVE); METHADONE URINE NEGATIVE (NEGATIVE); OPIATES URINE NEGATIVE (NEGATIVE); PHENCYCLIDINE URINE NEGATIVE (NEGATIVE)
[2020-10-24 02:53] LABS: ACETAMINOPHEN LEVEL < 2.0 UG/ML (10.0-30.0); ALBUMIN 3.9 GM/DL (3.2-5.2); ALT/SGPT 41 U/L (12-78); BILIRUBIN,DIRECT 0.2 MG/DL (0.0-0.2); BILIRUBIN,TOTAL 0.4 MG/DL (0.2-1.0); BLOOD UREA NITROGEN 17 MG/DL (7-18); CALCIUM LEVEL 9.3 MG/DL (8.5-10.1); CARBON DIOXIDE LEVEL 22 MEQ/L (21-32); CHLORIDE LEVEL 108 MEQ/L (98-107); CREATININE FOR GFR 0.68 MG/DL (0.55-1.30); ETHYL ALCOHOL (ETHANOL) 0.003 % (0.000-0.010); GLUCOSE, FASTING 85 MG/DL (70-100); POTASSIUM SERUM 3.9 MEQ/L (3.5-5.1); SALICYLATE LEVEL < 1.7 MG/DL (5.0-30.0); SODIUM LEVEL 139 MEQ/L (136-145); TOTAL PROTEIN 7.1 GM/DL (6.4-8.2)
[2020-10-24] MEDS ORDERED: ACETAMINOPHEN TAB 650MG DOSE (2X325MG) PO ONE (12:10)
--- NOTE | 2020-10-24 17:37 | MHCR ---
[facility] CONSULTATION DATE: 10/24/2020 IDENTIFYING DATA: She is a 20-year-old female, recently discharged from inpatient mental health unit ([facility]). Has come back to the emergency room (ER) looking for admission. It is her pattern for the last several years. She has been kicked out of her hotel, and a vp digital marketing social media and crm is looking for a different place. Patient is agreeable to go.Pt has outpatient therapist reports she will be going to see the therapist next week. MENTAL STATUS EXAMINATION: She is in hospital gown, cooperative. Made good eye contact. Speech rate, rhythm, volume are good. Mood is somewhat anxious. Denied any suicidal or homicidal ideas. Perception: Denied any auditory or visual hallucinations. Insight and judgment are limited to fair. DIAGNOSES: 1. Cyclothymia. 2. Borderline personality disorder. PLAN: Discharge her to the hotel or long-term home when vp digital marketing social media and crm finds one. ROSSY
[2020-10-25] MEDS ORDERED: CETIRIZINE (ZyrTEC) 10 MG TAB PO ONE (13:35)
[2020-10-25 22:47] VITALS: BP 148/94
== END 2020-10-25 22:49 | disposition home or self-care (01) ==
LOC: M ED 23:54
DX: F60.3 Borderline personality disorder (principal); F34.0 Cyclothymic disorder; F43.10 Post-traumatic stress disorder, unspecified; F33.9 Major depressive disorder, recurrent, unspecified; F90.9 Attention-deficit hyperactivity disorder, unspecified type; Z88.8 Allergy status to other drugs, medicaments and biological substances; Z79.899 Other long term (current) drug therapy

== ENCOUNTER 2021-03-11 14:11 | Emergency (ER) | payer OTHER ==
[~2021-03-11] VITALS: Ht 167.6 cm; Wt 137.9 kg
[~2021-03-11 14:11] MED LIST changes: +OLAN1TAB16 PO; -OLAN5TAB PO; +QUET1TAB17 PO; -QUET25TA3 PO; -QUET50TA3 PO; +QUET50TA4 PO
[2021-03-11 15:56] LABS: HEMATOCRIT 37.9 % (36.0-47.0); HEMOGLOBIN 12.8 g/dl (12.0-15.5); MEAN CORPUSCULAR HEMOGLOBIN 30.3 pg (27.0-33.0); MEAN CORPUSCULAR HGB CONC 33.8 g/dl (32.0-36.5); MEAN CORPUSCULAR VOLUME 89.8 fl (80.0-96.0); PLATELET COUNT, AUTOMATED 267 10^3/uL (150-450); RED BLOOD COUNT 4.22 10^6/uL (4.00-5.40); WHITE BLOOD COUNT 6.9 10^3/uL (4.0-10.0)
[2021-03-11 16:04] LABS: AMPHETAMINES LEVEL URINE NEGATIVE (NEGATIVE); BARBITURATES URINE NEGATIVE (NEGATIVE); BENZODIAZEPINES URINE NEGATIVE (NEGATIVE); CANNABINOIDS URINE NEGATIVE (NEGATIVE); COCAINE METABOLITE URINE NEGATIVE (NEGATIVE); METHADONE URINE NEGATIVE (NEGATIVE); OPIATES URINE NEGATIVE (NEGATIVE); PHENCYCLIDINE URINE NEGATIVE (NEGATIVE)
[2021-03-11 16:12] LABS: HCG, SERUM QUALITATIVE NEGATIVE (NEGATIVE)
[2021-03-11 16:20] LABS: ACETAMINOPHEN LEVEL < 2.0 UG/ML (10.0-30.0); ALBUMIN 3.7 GM/DL (3.2-5.2); ALT/SGPT 49 U/L (12-78); BILIRUBIN,DIRECT < 0.1 MG/DL (0.0-0.2); BILIRUBIN,TOTAL 0.3 MG/DL (0.2-1.0); BLOOD UREA NITROGEN 13 MG/DL (7-18); CALCIUM LEVEL 8.8 MG/DL (8.5-10.1); CARBON DIOXIDE LEVEL 23 MEQ/L (21-32); CHLORIDE LEVEL 111 MEQ/L (98-107); CREATININE FOR GFR 0.66 MG/DL (0.55-1.30); ETHYL ALCOHOL (ETHANOL) < 0.003 % (0.000-0.010); GLUCOSE, FASTING 87 MG/DL (70-100); POTASSIUM SERUM 3.8 MEQ/L (3.5-5.1); SALICYLATE LEVEL 1.9 MG/DL (5.0-30.0); SODIUM LEVEL 140 MEQ/L (136-145)
[2021-03-11] MEDS ORDERED: MONT10TA10 PO (16:21)
[2021-03-11] MEDS ORDERED: PRAV20TA2 PO (16:21)
[2021-03-11] MEDS ORDERED: LORA-674 PO (16:21)
[2021-03-11] MEDS ORDERED: PRAZ2CAP PO (19:46)
[2021-03-11] MEDS ORDERED: SERT50TA29 PO (19:46)
[2021-03-11] MEDS ORDERED: LATU80TA PO (19:46)
[2021-03-11] MEDS ORDERED: PROP10TA56 PO (19:46)
[2021-03-11] MEDS ORDERED: NICO2GUM42 MT (22:06)
[2021-03-11] MEDS ORDERED: TOPI25TA10 PO (22:08)
[2021-03-11] MEDS ORDERED: HOME MED LIST COMPLETE! XX SCH ×2 (22:10)
[2021-03-11 22:43] LABS: RSV AMPLIFICATION NEGATIVE (NEGATIVE)
[2021-03-12] MEDS ORDERED: TOPIRAMATE (TopAMAX) 25 MG TAB PO ONE (08:20)
[2021-03-12] MEDS ORDERED: SERTRALINE HCL 50 MG TAB PO ONE (08:20)
[2021-03-12] MEDS ORDERED: LORATADINE 10 MG TAB PO ONE (08:20)
[2021-03-12] MEDS: PROPRANOLOL 10 MG TAB PO SCH ×2 (10:01→21:15)
[2021-03-12] MEDS: LURASIDONE HCL 40 MG TAB (LATUDA) PO SCH (10:01)
[2021-03-12] MEDS: MONTELUKAST 10 MG TAB PO SCH (10:01)
[2021-03-12] MEDS: PRAVASTATIN 20 MG TAB PO SCH (10:02)
[2021-03-12] MEDS ORDERED: NICOTINE POLACRILEX 2 MG GUM PO ONE ×2 (13:30→18:25)
--- NOTE | 2021-03-12 19:21 | ECGEPIP ---
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
[2021-03-12] MEDS ORDERED: PROPRANOLOL 10 MG TAB PO ONE (21:00)
[2021-03-13 08:41] VITALS: BP 137/77
[2021-03-13 08:57] VITALS: BP 137/77
[2021-03-13] MEDS: LURASIDONE HCL 40 MG TAB (LATUDA) PO SCH (08:57)
[2021-03-13] MEDS: MONTELUKAST 10 MG TAB PO SCH (08:57)
[2021-03-13] MEDS: PROPRANOLOL 10 MG TAB PO SCH (08:57)
[2021-03-13] MEDS: PRAVASTATIN 20 MG TAB PO SCH (08:57)
== END 2021-03-13 08:59 ==
LOC: M ED 14:11
DX: R45.851 Suicidal ideations (principal); F60.3 Borderline personality disorder; R00.1 Bradycardia, unspecified; F32.9 Major depressive disorder, single episode, unspecified; Z76.5 Malingerer [conscious simulation]; E66.9 Obesity, unspecified; Z79.899 Other long term (current) drug therapy

== ENCOUNTER 2021-03-20 14:21 | Emergency (ER) | payer OTHER ==
[~2021-03-20] VITALS: Ht 167.6 cm; Wt 104.5 kg
[~2021-03-20 14:21] MED LIST changes: +LATU80TA PO; +MONT10TA10 PO; +NICO2GUM42 MT; +PRAV20TA2 PO; +PRAZ2CAP PO; +SERT50TA29 PO; +TOPI25TA10 PO
[2021-03-20 17:12] LABS: HEMATOCRIT 38.3 % (36.0-47.0); HEMOGLOBIN 12.8 g/dl (12.0-15.5); MEAN CORPUSCULAR HEMOGLOBIN 29.9 pg (27.0-33.0); MEAN CORPUSCULAR HGB CONC 33.4 g/dl (32.0-36.5); MEAN CORPUSCULAR VOLUME 89.5 fl (80.0-96.0); PLATELET COUNT, AUTOMATED 264 10^3/uL (150-450); RED BLOOD COUNT 4.28 10^6/uL (4.00-5.40); WHITE BLOOD COUNT 9.2 10^3/uL (4.0-10.0)
[2021-03-20 17:24] LABS: AMPHETAMINES LEVEL URINE NEGATIVE (NEGATIVE); BARBITURATES URINE NEGATIVE (NEGATIVE); BENZODIAZEPINES URINE NEGATIVE (NEGATIVE); CANNABINOIDS URINE NEGATIVE (NEGATIVE); COCAINE METABOLITE URINE NEGATIVE (NEGATIVE); METHADONE URINE NEGATIVE (NEGATIVE); OPIATES URINE NEGATIVE (NEGATIVE); PHENCYCLIDINE URINE NEGATIVE (NEGATIVE)
[2021-03-20 17:27] LABS: HCG, SERUM QUALITATIVE NEGATIVE (NEGATIVE)
[2021-03-20 17:43] LABS: ACETAMINOPHEN LEVEL < 2.0 UG/ML (10.0-30.0); ALBUMIN 3.9 GM/DL (3.2-5.2); ALT/SGPT 59 U/L (12-78); BILIRUBIN,DIRECT 0.2 MG/DL (0.0-0.2); BILIRUBIN,TOTAL 0.5 MG/DL (0.2-1.0); BLOOD UREA NITROGEN 13 MG/DL (7-18); CARBON DIOXIDE LEVEL 24 MEQ/L (21-32); CHLORIDE LEVEL 106 MEQ/L (98-107); CREATININE FOR GFR 0.62 MG/DL (0.55-1.30); ETHYL ALCOHOL (ETHANOL) 0.003 % (0.000-0.010); GLUCOSE, FASTING 93 MG/DL (70-100); POTASSIUM SERUM 4.1 MEQ/L (3.5-5.1); SALICYLATE LEVEL < 1.7 MG/DL (5.0-30.0); SODIUM LEVEL 137 MEQ/L (136-145); TOTAL PROTEIN 7.5 GM/DL (6.4-8.2)
--- NOTE | 2021-03-20 20:56 | MHIPNPDOC ---
[facility] Progress Note Progress Note DATE OF SERVICE: 03/20/21 HISTORY: 20F, presented by [facility] for admission. Was brought to ER by police after walking out of her outpatient therapy session (first since discharge at previous hospitalization) with intent to kill herself by jumping from a bridge. Long history of suicide attempts, recent hospital discharge. Refuses to safety plan and continues to endorse SI while in the ER. Recommend admission to an inpatient mental health unit for safety and stabilization at this time. Vital Signs Vital Signs Date Time Temp Pulse Resp B/P (MAP) Pulse Ox O2 Delivery O2 Flow Rate FiO2 03/20/21 14:30 99.1 102 18 135/74 (94) 97 Room Air Laboratory Data 24H Labs Laboratory Tests 2 03/20/21 16:50: Nucleated Red Blood Cells % (auto) 0.0, Anion Gap 7L, Calcium Level 9.0, Total Bilirubin 0.5, Direct Bilirubin 0.2, Aspartate Amino Transf (AST/SGOT) 31, Alanine Aminotransferase (ALT/SGPT) 59, Alkaline Phosphatase 123H, Total Protein 7.5, Albumin 3.9, Albumin/Globulin Ratio 1.1L, Thyroid Stimulating Hormone (TSH) 1.160, Human Chorionic Gonadotropin, Qual NEGATIVE, Salicylates Level < 1.7L, Urine Opiates Screen NEGATIVE, Urine Methadone Screen NEGATIVE, Acetaminophen Level < 2.0L, Urine Barbiturates Screen NEGATIVE, Urine Phencyclidine Screen NEGATIVE, Urine Amphetamines Screen NEGATIVE, Urine Benzodiazepines Screen NEGA TIVE, Urine Cocaine Metabolite Screen NEGATIVE, Urine Cannabinoids Screen NEGATIVE, Ethyl Alcohol Level 0.003 03/20/21 20:10: CBC/BMP Laboratory Tests 03/20/21 16:50 Allergies Coded Allergies: haloperidol (Verified Adverse Reaction, Intermediate, LOCKJAW, 01/03/20) Has required & received this med many time without EPS noted risperidone (Verified Adverse Reaction, Mild, PSORIASIS, 11/26/19) REBECA NATION MD Mar 20, 2021 20:56
[2021-03-20 21:19] LABS: RSV AMPLIFICATION NEGATIVE (NEGATIVE)
[2021-03-20] MEDS ORDERED: LEXA5TAB13 PO (21:43)
[2021-03-20] MEDS ORDERED: TRAZ-186 PO (21:43)
[2021-03-20] MEDS ORDERED: ZYPR5TAB2 PO (21:43)
[2021-03-20] MEDS ORDERED: PATIENT COMMENT (21:44)
[2021-03-20] MEDS ORDERED: HOME MED LIST COMPLETE! XX SCH (21:45)
[2021-03-21 01:28] VITALS: BP 111/45
--- NOTE | 2021-03-21 07:13 | ECGEPIP ---
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
== END 2021-03-21 01:30 ==
LOC: M ED 14:21
DX: R45.851 Suicidal ideations (principal); F31.9 Bipolar disorder, unspecified; F43.10 Post-traumatic stress disorder, unspecified; F90.9 Attention-deficit hyperactivity disorder, unspecified type; F60.3 Borderline personality disorder; Z88.8 Allergy status to other drugs, medicaments and biological substances; Z79.899 Other long term (current) drug therapy

== ENCOUNTER 2021-03-30 07:07 | Emergency (ER) | payer OTHER ==
[~2021-03-30 07:07] MED LIST changes: -CITA10TA5; -CITA10TA5 PO; +CITA10TA7; +CITA10TA7 PO; -HALO5TA PO; +HALO5TAB33 PO; -LATU80TA PO; +LATU80TA2 PO; +LEXA5TAB13 PO; -MONT10TA10 PO; +MONT10TA97 PO; +ZYPR5TAB2 PO
[2021-03-30] MEDS ORDERED: ARIP10TA32 (07:34)
[2021-03-30 14:19] VITALS: BP 134/78
[2021-05-17] MEDS ORDERED: MONT10TA97 PO (19:16)
== END 2021-03-30 14:45 | disposition home or self-care (01) ==
LOC: M ED 07:07
DX: F43.21 Adjustment disorder with depressed mood (principal); F17.200 Nicotine dependence, unspecified, uncomplicated; F32.9 Major depressive disorder, single episode, unspecified; Z88.8 Allergy status to other drugs, medicaments and biological substances

== ENCOUNTER 2021-04-19 22:19 | Emergency (ER) | payer OTHER ==
[~2021-04-19] VITALS: Ht 167.6 cm; Wt 104.5 kg
[~2021-04-19 22:19] MED LIST changes: +ARIP10TA32; +CITA10TA5; +CITA10TA5 PO; -CITA10TA7; -CITA10TA7 PO; +HALO5TA PO; -HALO5TAB33 PO; +LATU80TA PO; -LATU80TA2 PO; +MONT10TA10 PO; -MONT10TA97 PO
[2021-04-19] MEDS ORDERED: HALOPERIDOL 5MG/ML VIAL (J1630 PER 1) IM ONE (23:05)
[2021-04-19] MEDS ORDERED: LORazepam 2 MG/ML VIAL IM ONE (23:05)
[2021-04-19] MEDS ORDERED: diphenhydrAMINE 50MG/ML VIAL (J1200) IM ONE (23:05)
[2021-04-19 23:43] LABS: HEMATOCRIT 34.7 % (36.0-47.0); HEMOGLOBIN 11.2 g/dl (12.0-15.5); MEAN CORPUSCULAR HEMOGLOBIN 29.3 pg (27.0-33.0); MEAN CORPUSCULAR HGB CONC 32.3 g/dl (32.0-36.5); MEAN CORPUSCULAR VOLUME 90.8 fl (80.0-96.0); PLATELET COUNT, AUTOMATED 256 10^3/uL (150-450); RED BLOOD COUNT 3.82 10^6/uL (4.00-5.40); WHITE BLOOD COUNT 8.5 10^3/uL (4.0-10.0)
[2021-04-20 00:20] LABS: AMPHETAMINES LEVEL URINE NEGATIVE (NEGATIVE); BARBITURATES URINE NEGATIVE (NEGATIVE); BENZODIAZEPINES URINE NEGATIVE (NEGATIVE); CANNABINOIDS URINE NEGATIVE (NEGATIVE); COCAINE METABOLITE URINE NEGATIVE (NEGATIVE); METHADONE URINE NEGATIVE (NEGATIVE); OPIATES URINE NEGATIVE (NEGATIVE); PHENCYCLIDINE URINE NEGATIVE (NEGATIVE)
[2021-04-20 00:20] LABS: HCG, SERUM QUALITATIVE NEGATIVE (NEGATIVE)
[2021-04-20 00:28] LABS: ACETAMINOPHEN LEVEL < 2.0 UG/ML (10.0-30.0); ALBUMIN 3.2 GM/DL (3.2-5.2); ALT/SGPT 40 U/L (12-78); BILIRUBIN,DIRECT < 0.1 MG/DL (0.0-0.2); BILIRUBIN,TOTAL 0.2 MG/DL (0.2-1.0); BLOOD UREA NITROGEN 15 MG/DL (7-18); CALCIUM LEVEL 8.1 MG/DL (8.5-10.1); CARBON DIOXIDE LEVEL 24 MEQ/L (21-32); CHLORIDE LEVEL 110 MEQ/L (98-107); CREATININE FOR GFR 0.78 MG/DL (0.55-1.30); GLUCOSE, FASTING 96 MG/DL (70-100); POTASSIUM SERUM 3.8 MEQ/L (3.5-5.1); SALICYLATE LEVEL < 1.7 MG/DL (5.0-30.0); SODIUM LEVEL 142 MEQ/L (136-145); TOTAL PROTEIN 7.1 GM/DL (6.4-8.2)
[2021-04-20 00:29] LABS: ETHYL ALCOHOL (ETHANOL) < 0.003 % (0.000-0.010)
[2021-04-20 13:17] VITALS: BP 115/61
== END 2021-04-20 14:41 | disposition home or self-care (01) ==
LOC: M ED 22:19
DX: F60.3 Borderline personality disorder (principal); Z88.8 Allergy status to other drugs, medicaments and biological substances; Z79.899 Other long term (current) drug therapy
CPT/HCPCS: 36415; 80048; 80076; 80143; 80307; 82077; 84443; 84703; 85027; 96372; 99285; J1200; J1630; J2060

== ENCOUNTER 2021-05-09 23:31 | Emergency (ER) | payer OTHER ==
[~2021-05-09] VITALS: Ht 167.6 cm; Wt 136.8 kg
--- OUTSIDE RECORDS SUMMARY | 2021-05-09 23:41 | CCD | Summary of Care ---
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 Name Role Phone Gilberto Castillo MD PCP Reason for Visit * Reason Comments Psychiatric Evaluation suicidal for 4 weeks * Auth/Cert Referred By Contact Referred To Contact Status Reason Specialty Diagnoses / Procedures Diagnoses Suicidal ideation Borderline personality disorder Encounter Details Care Team Description Date Type Department JakeogrecLeeroy hall MD [address] [place], [place] [id number] Gilberto Victor MD [address] [place] [id number] Deejay Pearson MD [address] [place] [phone] Suicidal ideation (Primary Dx) 04/05/[address] PSYCHIATRY INPA TIENT - Encounter 04/07/2021 [address] [place] [address] Allergies Comments Active Allergy Reactions Severity Noted Date "lock jaw" Haloperidol Other (See Medium 01/25/2019 Comments) Lock Jaw Risperidone And Related Other (See Medium 2018 Comments) documented as of this encounter (statuses as of 04/07/2021) Medications End Date Status Medication Sig Dispensed Refills Start Date 02/25/2022 Active Loratadine 10 MG Oral Take 1 tablet 30 tablet 0 Tablet (CLARITIN) by mouth 1 daily 02/24/2022 Active Montelukast Sodium 10 MG Take 1 tablet 30 tablet 0 Oral Tablet (SINGULAIR) by mouth 1 nightly 02/24/2022 Active Prazosin HCl 2 MG Oral Take 1 14 capsule 1 Capsule (MINIPRESS) capsule by 1 mouth nightly 02/24/2022 Active Propranolol HCl 10 MG Take 1 tablet 14 tablet 2 Oral Tablet (INDERAL) by mouth Two 1 Times Daily 02/25/2022 Active Topiramate 25 MG Oral Take 3 21 tablet 2 02/09 Tablet (TOPAMAX) tablets by 1 mouth daily Active Nicotine Polacrilex 2 MG Take 2 mg by 0 Mouth/Throat Gum mouth every 2 (NICORETTE) (two) hours as needed for Smoking cessation 04/24/2021 Active ARIPiprazole 10 MG Oral Take 1 tablet 30 tablet 0 Tablet (ABILIFY) by mouth 1 daily Active Abilify Maintena 400 MG INJECT 1 0 Intramuscular Prefilled APPLICATION 0 Syringe INTO THE MUSCLE ONCE A MONTH Active Sertraline HCl 50 MG Oral Take 50 mg 71 tablet 0 Tablet (ZOLOFT) for 2 days, 1 then increase to 100 mg on 04/10, and increase to 150 mg on 04/13. 04/07/2021 Discontinued (Reorder) Sertraline HCl 50 MG Oral Take 3 21 tablet 2 Tablet (ZOLOFT) tablets by 1 mouth daily documented as of this encounter (statuses as of 04/07/2021) Active Problems Problem Noted Date Major depressive disorder, recurrent 03/21/2021 Class 3 severe obesity due to excess calories without serious comorbidity 03/21/2021 with body mass index (BMI) of 45.0 to 4 9.9 in adult Homeless single person 12/26/2019 Non compliance with medical treatment 12/26/2019 PTSD (post-traumatic stress disorder) 09/25/2019 Gender identity disorder 09/05/2019 Overview: Formatting of this note might be differ ent from the original. Female to male Borderline personality disorder 09/04/2019 Overview: Formatting of this note might be differ ent from the original. 12/26/2019-consented to Abilify by mouth and Abilify Maintena Depression with suicidal ideation 06/19/2019 Suicidal ideation 06/19/2019 documented as of this encounter (statuses as of 04/07/2021) Resolved Problems Problem Noted Date Resolved Date Suicide attempt by drug ingestion 09/02/201912/10 documented as of this encounter (statuses as of 04/07/2021) Immunizations Name Administration Dates Next Due documented as of this encounter Social History Date Tobacco Use Types Packs/Day Years Used Started: 12/22/2020 Current Every Day Smoker Cigarettes 0.5 0.5 Smokeless Tobacco: Never Used Tobacco Cessation: Ready to Quit: Yes Comments Alcohol Use Standard Drinks/Week Not Currently 0 (1 standard drink = 0.6 o z pure alcohol) Alcohol Habits Answer Date Recorded How often do you have a drink containing alcohol? Never 04/05/2021 How many drinks containing alcohol do you have on No t asked a typical day when you are drinking? How often do you have six or more drinks on one Not asked occasion? Social Isolation Answer Date Recorded In a typical week, how many times do you talk on More than three times a week 04/05/2021 the phone with family, friends, or neig hbors? How often do you get together with friends or Never 04/05/2021 relatives? How often do you attend jewish or taoism Never 04/05/2021 services? Do you belong to any clubs or organizations such No 04/05/2021 as jewish groups, unions, fraternal or athletic groups, or school groups? How often do you attend meetings of the clubs or Never 04/05/2021 organizations you belong to? Are you now , , , , Separat ed 09/24/2019 never or living with a partner? Physical Activity Answer Date Recorded On average, how many days per week do you engage 7 days 04/05/2021 in moderate to strenuous exercise (like walking fast, running, jogging, dancing, swimmi ng, biking, or other activities that cause a light or heavy sweat)? On average, how many minutes do you engage in 60 min 04/05/2021 exercise at this level? Stress Answer Date Recorded Do you feel stress - tense, restless, nervous, or Very muc h 04/05/2021 anxious, or unable to sleep at night be cause your mind is troubled all the time - these d ays? Education Answer Date Recorded What is the highest level of school you have 11th grade 06/19/2019 completed or the highest degree you hav e received? Financial Resource Strain Answer Date Recorde d How hard is it for you to pay for the very basics Somewhat hard 04/05/2021 like food, housing, medical care, and h eating? Intimate Partner Violence Answer Date Recorde d Within the last year, have you been afraid of your No 04/05/2021 partner or ex-partner? Within the last year, have you been humiliated or No 04/05/2021 emotionally abused in other ways by you r partner or ex-partner? Within the last year, have you been kicked, hit, No 04/05/2021 slapped, or otherwise physically hurt b y your partner or ex-partner? Within the last year, have you been raped or No 04/05/2021 forced to have any kind of sexual activ ity by your partner or ex-partner? Food Insecurity Answer Date Recorded Within the past 12 months, you worried that your Sometimes true 04/05/2021 food would run out before you got money to buy more. Within the past 12 months, the food you bought Patient ref used 09/24/2019 just didn't last and you didn't have mo aimee to get more. Transportation Needs Answer Date Recorded In the past 12 months, has lack of transportation No 09/24/2019 kept you from medical appointments or f rom getting medications? In the past 12 months, has lack of transportation No 09/24/2019 kept you from meetings, work, or gettin g things needed for daily living? Sex Assigned at Date Recorded Not on file Date Recorded COVID-19 Exposure Response 04/05/2021 4:27 AM EDT In the last month, have you been in contact with No / Unsure someone who was confirmed or suspected to have Coronavirus / COVID-19? documented as of this encounter Last Filed Vital Signs Reading Time Taken Comments Vital Sign 121/78 04/05/2021 5:00 AM EDT Blood Pressure 80 04/05/2021 5:00 AM EDT Pulse 36.8 C (98.2 F) 04/05/2021 4:15 AM EDT Temperature 16 04/05/2021 4:15 AM EDT Respiratory Rate 98% 04/05/2021 5:00 AM EDT Oxygen Saturation - - Inhaled Oxygen Concentration 104.3 kg (230 lb) 04/05/2021 4:44 AM EDT verbalized Weight 167.6 cm (5' 6") 04/05/2021 4:44 AM EDT verbalized Height 37.12 04/05/2021 4:44 AM EDT Body Mass Index documented in this encounter Discharge Instructions * Appointments* Olivia Roca LMSW - 04/07/2021 9:57 AM EDT Replaced By [facility] [address] [phone] APPOINTMENT: April 08 at 2:00 PM * Discharge Instr - Outside Referral* Olivia Roca LMSW - 04/07/2021 10:04 AM EDT National Suicide Prevention Lifeline Phone: or 2 [phone]) [phone] | www.suicidepreventionlifeline.org Hours: 24 hours, 7 days a week National Suicide Hopeline Phone: 2-478-667-HOPE (8099) | 01/02 | www.[employer] [facility] 1. CPEP AVAILABLE 24 HOURS EVERY DAY [address] [place] [address] 2. CONTACT AVAILABLE 24 HOURS EVERY DAY Telephone Crisis Counseling Services 3. [facility] Helpline AVAILABLE 24 HOURS EVERY DAY Referral Services 4. Dial 2-1-1 for 24-hour information on community, social, or government servic es. CRISIS TEXTLINE 169205 Depression and Bipolar Support [place] ADULT SUPPORT GROUP MEETS EVERY Wednesday FROM 6:15PM TO 8:00PM The group meets at: [facility]? ([facility]) [address] [place] [address] Entrance and free parking at the rear of the building at [facility] | [email or web address]/ Depressive Disorders Support Group - [facility] [address] [place] [place], [place] Meets , 4:30 PM - 6 PM in the "Teen Room" [facility] (for community/group activities) [address] [place] [address] | | [email or web address] Walk-in. No membership required. [employer] / [facility] [place] [facility] Illness ([facility]) [address] [place] [address] or 3-605-858-CAITLINB (3168) | www.caitlin.org/ Hours: M F, 8 AM 4:30 PM Email: [facility] | Kentrell Avila, Library Services Assistant for Mental Health | [email or web address] [facility] | | Email: [email or web address] [address] | 1. [facility] [employer] [address] [place] [address] | 2. [facility] [address] [place] [address] | 3. Bridge Services [facility] works with individuals receiving other [facility] assist ance to: ? Provide community-based supports to adults who are struggling to manage or hitesh e progress in their pursuit of the quality of life they desire, and seek greater levels of wellness, independence, and personal satisfaction and success in their lives. ? Support people in the development of their recovery goals focusing on physical health, independence and coordination/instruction related to accessing transpor tation. ? Contact: Kentrell Avila, Associate Blankbook Forwarder-Mental Health Services | | Email: [email or web address] * Additional Instructions* Maria G Brandon MD - 04/07/2021 11:17 AM EDT Take Zoloft 50 mg for 2 days, and then increase to 100 mg on 04/10, and increase to 150 mg on 04/13. Continue to take other outpatient medications as prescribed. documented in this encounter Progress Notes * Katie Bird GN - 04/07/2021 12:10 PM EDT valve repairer reclamation Note: Pt to be discharged home via Medicaid cab. Pt received, jere d, and verbalized understanding of discharge paperwork, medication regimen, and follow up appointments. Pt belongings returned and accounted for and pt belongin gs retrieved from safe. Pt denied suicidal ideation prior to discharge. Pt to be escorted off unit by staff and pt safety maintained. * Katie Bird GN - 04/07/2021 12:08 PM EDT RN Shift Note: Pt irritable and aggressive at start of shift, swearing and confr ontational with MASTICATOR. Pt initially refused AM medications, but after a short time , emerged from room apologetic and requesting to take AM medications. Pt visible in the milieu throughout the morning, structuring time coloring. Pt not attendi ng groups. Pt looking forward to discharge today, stating "I don't benefit from being here." Pt needs some reminders to wear mask appropriately in the milieu. P t safety maintained through frequent fifteen minute checks. Will continue to mon itor. * Robyn Macias RN - 04/07/2021 3:43 AM EDT RN Shift Note: Pt appeared to sleep throughout the night. No safety concerns not ed. Safety maintained through 15 min checks. Will continue to monitor. * Scooby Grimes GN - 04/06/2021 11:15 PM EDT Psychiatric Inpatient Unit Post Restraint or Post Seclusion Debriefing Names of Staff present at this debriefing: Vicky Aldana, Noel Snow S. Pffeifer Patient included in debriefing:yes Family included in debriefing: no If not involved, why not? What led to the incident? Pt became agitated at peer R.T. for asking the television to be turned off. She was also agitated that the peer was listening to the headphones because she want ed to. Also, pt was agitated that peer Davon.W. was trying to explain the situation to a staff member. Interventions used prior to incident: Offered choices; offered to decrease stimulation; offered medication. If patient and/or family participated in the debriefing, what recommendations do they have? What was the patients response to the use of restraints or seclusion? Pt able to regain control of emotions and behavior and return to room without an y further incidents. Has the treatment plan been modified since the incident?yes Date of Seclusion or restraint: 04/06/2021 * Scooby Grimes GN - 04/06/2021 4:07 PM EDT RN note [id number]: Pt is agitated upon approach. He asked to speak with fiction and nonfiction writer prose because he was still experiencing thoughts of self-harm/SI. Pt attended group today and informed klever albert that it helped distract him from his thoughts. He can be seen in the milieu listening to music. Safety checks maintained q15 minutes. Will continue to monit or. 1650 - Pt was banging his head on the wall and scratching his arm. PRN Zyprexa a nd Atarax were offered, pt refused and began to scream and verbally assault othe r staff members. Public safety was called and pt continued to verbally assault a nd threaten staff members and security. He agreed to take PRN Atarax and Zyprexa PO at 1643. He agreed he would stop banging his head on the wall and scratching his arm. Security left. Safety checks maintained q15 minutes. Will continue to monitor. 1942: pt approached staff asking if he could go back to his room. He denied SI/H I/AVH at this time. Pt contracted for safety at this time as well. His room was unlocked at 1939. 2144: pt refused his nightly minipress. He can be seen in the dayroom coloring. 2251: Pt began to argue with peers and threaten to physically harm them, attempt ing to lunge himself at others. Staff was able to intervene but pt continued to yell and make threats to staff and patients. Security called. Pt was taken to [facility] room and began to yell and hit/scratch security and staff. The patient w as in seclusion at 2231 where he began banging on the door and yelling. The pt w as then told he would be restrained. He attempted to spit at security and nursin g staff while still flailing. He was placed on twice as tough restraints at 223 2 without seclusion. NPOD was notified and Zyprexa 10 mg IM was administered. Sa fety checks maintained q15 minutes. 2303: pt contracted not to harm others and stop his behavior. He was removed fro m twice as tough restraints at 2303. [id number]: pt slept in his room. * Candida Love RN - 04/06/2021 2:12 PM EDT RN Note [id number]: Remained in DR sarah. Took a snack. He banged his head on his door when he was first locked out per charge nurse.States he vomits every ti me he eats. Vomited x 1 about 1445. He was checked every 15 minute rounds. I nazia l continue to monitor. * Beth Rader NP - 04/06/2021 12:30 PM EDT Psychiatric Brief Inpatient Note Patient Yareli Hatch [address] PCP Gilberto Castillo MD History Chief Complaint: "I want to stay in my room" this is stupid". Associated Signs/Sxs: CABLE ASSEMBLER, depression, agitation, irritable, passive suicidal id eation without intent or plan. Interval: Initially upon arriving on unit Mak was noted to be sitting in day ro om coloring. This fiction and nonfiction writer prose was informed by staff that Mak had returned to his ro om and was refusing to come out. Mak was not able to safely de-escalate and se xiomara was called to facilitate him exiting his room. He went back to the day r oom and then again was found at the door of his room banging on the door and scr eaming. (See significant event note). After Mak took oral Zyprexa as needed agitation he was able to interact appropr iately with this fiction and nonfiction writer prose. He continues to endorse passive suicidal ideation but states that he feels he would be able to come to staff if feelings worsen. Reas onable safety plan reviewed that Mak would remain with lockout order for safety ; he expressed understanding. He was able to express insight that his previous outburst in the moment was absolutely inappropriate and states that he was react ing to his dissatisfaction about being locked out of his room. He was able to v oice that the lockout is required for safety purposes and he will make a better effort to comply. He denies HI/AVH when asked directly and again was able to vo ice a reasonable safety plan for passive SI. He endorses his sleep is fair and his appetite is good and denies any side effects from current medication regimen . Medical Review of Systems: 1. Constitutional Positive [] Negative [x] 2. Cardiovascular Positive [] Negative [x] 3. Respiratory Positive [] Negative [x] 4. Gastrointestinal Positive [] Negative [x] 5. Genitourinary Positive [] Negative [x] 6. Muscular Positive [] Negative [x] 7. Neurological Positive [] Negative [x] 8. Endocrine Positive [] Negative [x] 9. Allergies/Immune Positive [] Negative [x] Psychiatric Review of Systems: Psychosis: Patient does not have visual hallucinations, auditory hallucinations, olfactory hallucinations or tactile hallucinations. Depression: Patient has depressed mood, irritable mood, anhedonia, guilt/feeling s of worthlessness, decreased energy, decreased concentration, passive suicidal ideation (Without intent or plan when asked directly) and suicidal ideation. Melissa salazar exhibits psychomotor agitation. Patient does not have suicidal plan, suicid al intent, homicidal ideation, homicidal intent or homicidal target. Enoc: No symptoms of enoc. Post Traumatic Stress Disorder: Patient has PTSD. Patient reports a history of t rauma. Patient exhibits hypervigilance/increased arousal. Generalized Anxiety Disorder: Patient has muscle tension, fatigue and concentrat ion problems. Patient exhibits restlessness and irritability. Borderline Personality Disorder: Patient has chronic feelings of emptiness, diff iculty controlling anger and a pattern of unstable and intense interpersonal rel ationships. Patient exhibits recurrent suicidal behaviors, gestures or threats, transient, stress-related paranoid ideation, impulsivity that is potentially benjie f-damaging and inappropriate, intense rage. Patient makes efforts to avoid real or imagined abandonment. These symptoms have been present since early adulthood. Psychiatric Speciality Examination Medications/Side Effects: Denies side effects no outward obvious signs of side e ffects noted Results: Comments: Labs [x] Reviewed [] N/A not actionable General Appearance: Patient is a obese 20 y.o. adult who appears the stated age . He has fair hygiene. He is sitting in a chair.He is dressed in a hospital gown . Behavior: Attitude: Patient is uncooperative and hostile. Psychomotor: Patient has psychomotor agitation. Patient exhibits agitation and restlessness. Speech: Patient's speech is spontaneous. Speech quantity: voluble. Rate is petr l. Volume is loud. Mood: "Aggravated". Affect: Affect is dysphoric, angry, anxious, irritable, labile and congruent wit h stated mood. Patient appears to have full range. Thought Process: Thought process is coherent and preoccupied. Thought Content: Patient has active suicidal ideation passive suicidal ideation (Without intent or plan when asked directly). Patient does not express active ho micidal ideation and passive homicidal ideation. Perceptions: Patient is not internally preoccupied. Patient does not have audito ry hallucinations or visual hallucinations. Cognition: Patient is awake and alert. He is oriented to time, place and person. Insight: Poor Judgement: Poor Medical Decision Making Medications: Scheduled: multivitamin 1 tablet Oral Daily prazosin 1 mg Oral Nightly PRN: acetaminophen (TYLENOL) tablet, aluminum & magnesium hydroxide-simethicone, hydrOXYzine, ibuprofen, magnesium hydroxide, melatonin, nicotine, OLANZapine, OLANZapine, ondansetron Problem List Hospital * (Principal) Suicidal ideation Borderline personality disorder Non-Hospital Gender identity disorder Class 3 severe obesity due to excess calories without serious comorbidity with body mass index (BMI) of 45.0 to 49.9 in adult Relevant Medications aluminum & magnesium hydroxide-simethicone (MAALOX PLUS) 200-200-20 MG/5ML oral suspension 30 mL Depression with suicidal ideation Relevant Medications hydrOXYzine (ATARAX) tablet 50 mg PTSD (post-traumatic stress disorder) Relevant Medications hydrOXYzine (ATARAX) tablet 50 mg Homeless single person Non compliance with medical treatment Major depressive disorder, recurrent Relevant Medications hydrOXYzine (ATARAX) tablet 50 mg DSM: Borderline personality disorder MDD with Suicidal Ideation PTSD Gender Identity Disorder Plan: No medication changes, continue room lockout order for safety. * Zoe Elliott RN - 04/06/2021 11:18 AM EDT [id number] RN shift note: Pt is in the working phase of the nurse-pt relationship . Pt was in the dayroom coloring with this fiction and nonfiction writer prose. Pt came to the nurses's stati on to give her journal to this fiction and nonfiction writer prose and insisted staff should read her journal . The statement confirmed Pt was suicidal. Pt went to his room. Public safety wa s called and Pt's room was locked Per MD order. Pt received PO PRN Zyprexa 10 mg . Frequent checks maintained, will continue to monitor. * Olivia Nina RN - 04/06/2021 6:09 AM EDT [id number] Patient appears to be sleeping well throughout entirety of shift. Marina ent visible at intervals. No DTS/DTO behaviors observed or expressed. No PRN med ications given. No reported or observed issues or concerns. Patient safety maint ained with 15 minute safety checks, will continue to monitor, and will report an y changes. * Olivia Nina RN - 04/05/2021 11:18 PM EDT [id number] Patient pleasant and cooperative upon approach. Patient is visible in the milieu and is isolative to self. Patient engages with staff when approached. Patient i s visible at intervals. Patient denies SI/HI/AVH and contracts for safety. The p atient expressed no DTS/DTO behaviors. Patient identified listening to music, co domonique, and journaling as a coping strategy. The patient expressed comfort comin g to nurse with any issues or concerns. Patient is compliant with medications. T he patient received PRN ibuprofen 400mg at 1937 for headache rated At 6/10, whi ch was reduced to 5/10 on reassessment. He also received Zyprexa 10mg at 1943 santos huff MD orders for events described in previous RNs note. Patient is independent wi th ADL's and ambulation, and is on standard fall precautions. Patient safety jayde ntained with 15 minute safety checks, will continue to monitor. The patient was educated and encouraged to wear mask, and was not compliant. At 2100, the patien t addresses this RN and expresses SI without plan or intent. Patient continues t o contract for safety, however asks this RN to be placed on constant observation . After education and communication, the patient decided that journaling was an adequate method of reducing suicidal thoughts. * Candida Juan LPN - 04/05/2021 9:43 PM EDT Twistable crayons were taken out of patients belongings and given to patient as per RN Twistable crayons were removed from patients room. * Breonna Tate GN - 04/05/2021 12:42 PM EDT RN shift note : Pt is guarded and irritable upon approach. Pt refused AM medication, stating "I' m not taking that," and then rolled over in bed towards the wall. Pt educated an d encouraged to take medications as ordered. Pt became agitated when asked about doing blood work, with pt refusing and stating "I'm not doing more blood work! They took like 10 tubes yesterday!" Pt compliant with wearing a mask in the adalberto eu. Pt eating adequate amounts. Pt is attending groups and socializing with peer s in the milieu. Pt states he is experiencing suicidal ideation without intent w hile hospitalized, but states he would jump in front of a moving car. Pt utilizi ng music and art as coping mechanisms. Pt maintained on 15 minute safety checks. Will continue to monitor. 1899 - During safety rounds, pt was found sitting in front of his door banging h is head on the wall. Pt also had a sheet loosely around his neck. T/w went to se e pt, who was arguing with staff, stating "Get the fuck out of my room!" Pt's ro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 Enterovirus [facility] Influenza A Not Detected [facility] Clin Pathology Influenza B Not Detected [facility] Clin Pathology Parainfluenza Not Detected [facility] virus 1 [facility] Parainfluenza Not Detected [facility] virus 2 [facility] Parainfluenza Not Detected [facility] virus 3 [facility] Parainfluenza Not Detected [facility] virus 4 [facility] RSV Not Detected [facility] Clin Pathology Bordetella Not Detected [facility] pertussis [facility] Chlamydia Not Detected [facility] pneumoniae [facility] Mycoplasma Not Detected [facility] pneumoniae [facility] Bordetella Not Detected [facility] parapertussis [facility] Clin Pathology Specimen Nasopharyngeal Swab Performing Organization Address City/State/ZIP Code P yuri Number [facility] CLINICAL [address] [place], [place] 132[address] PATHOLOGY [facility] [address] [place], [place] [address] Clin Pathology * COVID-19 PCR (04/05/2021 1:30 AM EDT) Specimen Nasopharyngeal Swab [facility] Description CLINICAL PATHOLOGY SARS CoV-2 2019 nCoV Real-Time RT-PCR: 2019 nCoV Real-Messi e [facility] NOT DETECTED RT-PCR: NOT DETECTED [facility] Assay performed Test performed using [facility]. [facility] First COVID-19 UNKNOWN [facility] Test? CLINICAL PATHOLOGY Employed in UNKNOWN [facility] CLINICAL setting? PATHOLOGY Symptomatic for UNKNOWN [facility] COVID-19 as CLINICAL defined by CDC? PATHOLOGY Date of symptom UNKNOWN [facility] onset? CLINICAL ([id number]) PATHOLOGY Hospitalized UNKNOWN [facility] for COVID-19? CLINICAL PATHOLOGY Admitted to ICU UNKNOWN [facility] for COVID-19? CLINICAL PATHOLOGY Resident in a UNKNOWN [facility] CLINICAL (group) care PATHOLOGY setting? ? 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 aluminum & magnesium hydroxide-simethicone (MAALOX PLUS) 200-200-20 MG/5ML oral suspension 30 mL 30 mL, Oral, Every 4 hours PRN, Heartburn, Indigestion, Starting on 04/05/21 at 0625, For 30 days, MDD 4 04/07/2021 10:50 AM EDT 10 mg ARIPiprazole (ABILIFY) tablet 10 mg Given 10 mg, Oral, Daily Standard, First dos e on 04/07/21 at 1045, For 30 days 04/06/2021 4:43 PM EDT 50 mg hydrOXYzine (ATARAX) tablet 50 mg Given 50 mg, Oral, Every 6 hours PRN, Anxiety, Sleep, Starting on 04/05/21 at 0625, For 30 days 04/05/2021 7:38 PM EDT 400 mg ibuprofen (MOTRIN) tablet 400 mg Given 400 mg, Oral, Every 6 hours PRN, Moderate Pain (Pain Scale Score 4-6), Headaches, Starting on 04/05/21 at 1934, For 30 days, Take with food. magnesium hydroxide (MILK OF MAGNESIA) 400 MG/5ML oral suspension 30 mL 30 mL, Oral, Daily PRN, Constipation, Starting on 04/05/21 at 0625, For 30 days, If serum creatinine > 2 notify provider before administering. melatonin tablet 5 mg 5 mg, Oral, Nightly PRN, Sleep, Starting on 04/05/21 at 0625, For 30 days 04/07/2021 8:38 AM EDT 1 tablet multivitamin tablet 1 tablet Given 1 tablet, Oral, Daily Standard, First dose on 04/05/21 at 0800, For 30 day s 04/06/2021 2:31 PM EDT 2 mg nicotine (NICORETTE) lozenge 2 mg Given 2 mg, Mouth/Throat, Every 2 hours PRN , Smoking cessation, Starting on 04/05/21 at 0625, For 30 days, Should no t be chewed or swallowed; allow to dissolve slowly (~20-30 minutes) 2 mg Given 04/05/2021 10:22 AM EDT 04/06/2021 4:44 PM EDT 10 mg OLANZapine (ZYPREXA) tablet 10 mg Given 10 mg, Oral, Every 2 hours PRN, Agitation, MDD 20 mg, Starting on 04/05/21 at 1940, For 30 days 10 mg Given 04/06/2021 10:56 AM EDT 10 mg Given 04/05/2021 7:44 PM EDT ondansetron (ZOFRAN-ODT) disintegrating tablet 4 mg 4 mg, Oral, Every 6 hours PRN, Nausea , Starting on 04/05/21 at 0625, For 30 days, Dissolve on tongue. prazosin (MINIPRESS) capsule 1 mg 1 mg, Oral, Nightly, First dose on 04/05/21 at 2200, For 30 days, Check vital signs before administering 04/07/2021 10:50 AM EDT 50 mg sertraline (ZOLOFT) tablet 50 mg Given 50 mg, Oral, Daily Standard, First dos e on 04/07/21 at 1045, For 30 days Action Date Dose Rate Site Medication Order MAR Action 04/06/2021 10:43 PM EDT 10 mg OLANZapine (ZYPREXA) injection 10 mg Given 10 mg, Intramuscular, Once, On 04/06/21 at 2245, For 1 dose, Reconstitute 10 mg vial with 2.1 mL SWFI; resulting solution is ~5 mg/mL; Use within 1 hour following reconstitution. documented in this encounter Active and Recently Administered Medications Times are shown in EDT. 04/06/2021 04/07/2021 Medication Order 04/05/2021 1050 (Given - Provider: Cornelia Newell LPN) ARIPiprazole (ABILIFY) tablet 10 mg 10 mg, Oral, Daily Standard, First dos e on 04/07/21 at 1045, For 30 days 1046 (Not Given - Provider: Zoe jones RN - Reason: Patient/family refused) 0838 (Given - Provider: Cornelia Newell LPN) multivitamin tablet 1 tablet 0922 (Not Given - 1 tablet, Oral, Daily Standard, First Provider: Daniel Patel dose on 04/05/21 at 0800, For 30 days DARRON Tate - Reason: Patient/family refused) 2242 (Given - Provider: DARRON Weiss) OLANZapine (ZYPREXA) injection 10 mg (COMPLETED) 10 mg, Intramuscular, Once, On 04/06/21 at 2245, For 1 dose, Reconstitute 10 mg vial with 2.1 mL SWFI; resulting solution is ~5 mg/mL; Use within 1 hour following reconstitution. 2142 (Not Given - Provider: DARRON Weiss - Reason: Patient/family refused) 2199 (Due) prazosin (MINIPRESS) capsule 1 mg 2054 (Not Given - 1 mg, Oral, Nightly, First dose on Sat Provider: Erin Mays 04/05/21 at 2200, For 30 days, Check JOSE LUIS Nina - vital signs before administering Reason: Patient/family refused) 1050 (Given - Provider: Cornelia Newell LPN) sertraline (ZOLOFT) tablet 50 mg 50 mg, Oral, Daily Standard, First dos e on 04/07/21 at 1045, For 30 days 04/06/2021 04/07/2021 Medication Order 04/05/2021 acetaminophen (TYLENOL) tablet 650 mg 1022 (Given - 650 mg, Oral, Every 6 hours PRN, All Provider: Daniel Patel Levels of Pain (Pain Scale Score 1-10), DARRON Tate) Starting on 04/05/21 at 0625, For 30 days, Maximum daily dose of acetaminophen is 3,000 mg from all sources in 24 hrs. aluminum & magnesium hydroxide-simethicone (MAALOX PLUS) 200-200-20 MG/5ML oral suspension 30 mL 30 mL, Oral, Every 4 hours PRN, Heartburn, Indigestion, Starting on 04/05/21 at 0625, For 30 days, MDD 4 1643 (Given - Provider: DARRON Weiss) hydrOXYzine (ATARAX) tablet 50 mg 50 mg, Oral, Every 6 hours PRN, Anxiety, Sleep, Starting on 04/05/21 at 0625, For 30 days ibuprofen (MOTRIN) tablet 400 mg 1937 (Given - 400 mg, Oral, Every 6 hours PRN, Provider: Breonna Patel Moderate Pain (Pain Scale Score 4-6), DARRON Tate) Headaches, Starting on 04/05/21 at 1934, For 30 days, Take with food. magnesium hydroxide (MILK OF MAGNESIA) 400 MG/5ML oral suspension 30 mL 30 mL, Oral, Daily PRN, Constipation, Starting on 04/05/21 at 0625, For 30 days, If serum creatinine > 2 notify provider before administering. melatonin tablet 5 mg 5 mg, Oral, Nightly PRN, Sleep, Starting on 04/05/21 at 0625, For 30 days 1431 (Given - Provider: DARRON Stacy) nicotine (NICORETTE) lozenge 2 mg 1022 (Given - 2 mg, Mouth/Throat, Every 2 hours PRN, Provider: Davon Patel Smoking cessation, Starting on DARRON Park) 04/05/21 at 0625, For 30 days, Should no t be chewed or swallowed; allow to dissolve slowly (~20-30 minutes) 1056 (Given - Provider: Zoe Elliott RN)1644 (Given - Provider: DARRON Weiss) OLANZapine (ZYPREXA) tablet 10 mg 1943 (Given - 10 mg, Oral, Every 2 hours PRN, Provider: Olivia Coker, MDD 20 mg, Starting on Sat JOSE LUIS Nina) 04/05/21 at 1940, For 30 days ondansetron (ZOFRAN-ODT) disintegrating tablet 4 mg 4 mg, Oral, Every 6 hours PRN, Nausea , Starting on 04/05/21 at 0625, For 30 days, Dissolve on tongue. documented in this encounter Additional Health Concerns Last Indicated Resolved Time Infection Onset Date 04/05/2021 04/05/2021 2:50 AM EDT COVID-19 Rule-Out 04/05/2021 04/05/2021 04/05/2021 2:51 AM EDT Respiratory Rule-Out 04/05/2021 documented as of this encounter
--- OUTSIDE RECORDS SUMMARY | 2021-05-09 23:41 | CCD ---
Author Author Micheal Hernandez (Anthony) Organization [facility] Address Unknown Phone Unavailable Care Team Providers Care Meat Specialist Name Role Phone Shalini Hernandez PCP Unavailable Allergies, Adverse Reactions, Alerts Allergy Substance Code C odeSystem Reaction Severity Critic ality Status Start Date Moderate Medications Medication Medication Code Medication CodeSystem Start Date Stop Date Route Dose Status Fill Instructions RxNorm Problems Problem Name Code CodeSy stem Alternate Code Alternate CodeSystem Start Date End Date Status Narrative Depressive episode, unspecified [id number] SNOMED-CT 2017-05-17 Active Reactive attachment disorder of childhood 07620148 SNOMED-CT 2017-05-17 Active Recurrent depressive disorder, current episode severe without psychotic symptoms 58617248 SNOMED-CT 2019-11-08 Active Obesity, unspecified 423276231 SNOMED-CT 2017-05-17 Active Depressive episode, unspecified 14906186 SNOMED-CT 2017-05-17 Active Depressive episode, unspecified 71445207 SNOMED-CT 2017-05-17 Active Emotionally unstable personality disorder 51613647 SNOMED-CT 2019-11-09 Active Depressive episode, unspecified 36398427 SNOMED-CT 2017-05-17 Active Obesity, unspecified 251781861 SNOMED-CT 2017-05-17 Active Bipolar II disorder 09300022 SNOMED-CT 2019-11-09 Active Recurrent depressive disorder, current episode severe without psychotic symptoms 10919338 SNOMED-CT 2019-11-08 Active Bipolar II disorder 79998205 SNOMED-CT 2019-11-09 Active Reactive attachment disorder of childhood 95704803 SNOMED-CT 2017-05-17 Active Bipolar disorder, in partial remission, most recent episode depressed 83143399 SNOMED-CT 2017-05-17 Active Homelessness 574796966 SNOMED-CT 2021-01-02 Active Depressive episode, unspecified 99475954 SNOMED-CT 2017-05-17 Active Obesity, unspecified 508744426 SNOMED-CT 2017-05-17 Active Recurrent depressive disorder, current episode severe without psychotic symptoms 59433093 SNOMED-CT 2019-11-08 Active Emotionally unstable personality disorder SNOMED-CT 2019-11-09 Active Reactive attachment disorder of childhood 54081492 SNOMED-CT 2017-05-17 Active Homelessness 530919481 SNOMED-CT 2021-01-02 Active Obesity, unspecified 014379754 SNOMED-CT 2017-05-17 Active Bipolar disorder, in partial remission, most recent episode depressed 02842191 SNOMED-CT 2017-05-17 Active Reactive attachment disorder of childhood 15444799 SNOMED-CT 2017-05-17 Active Reactive attachment disorder of childhood 82422389 SNOMED-CT 2017-05-17 Active Bipolar disorder, in partial remission, most recent episode depressed 32970300 SNOMED-CT 2017-05-17 Active Reactive attachment disorder of childhood 10065555 SNOMED-CT 2017-05-17 Active Bipolar disorder, in partial remission, most recent episode depressed 66599408 SNOMED-CT 2017-05-17 Active Bipolar disorder, in partial remission, most recent episode depressed 03134991 SNOMED-CT 2017-05-17 Active Emotionally unstable personality disorder SNOMED-CT 2019-11-09 Active Bipolar II disorder 10835414 SNOMED-CT 2019-11-09 Active Bipolar disorder, in partial remission, most recent episode depressed 33196101 SNOMED-CT 2017-05-17 Active Obesity, unspecified 228606285 SNOMED-CT 2017-05-17 Active Obesity, unspecified 970672035 SNOMED-CT 2017-05-17 Active Emotionally unstable personality disorder SNOMED-CT 2019-11-09 Active Reactive attachment disorder of childhood 08178706 SNOMED-CT 2017-05-17 Active Recurrent depressive disorder, current episode severe without psychotic symptoms 27256574 SNOMED-CT 2019-11-08 Active Bipolar II disorder 52481372 SNOMED-CT 2019-11-09 Active Bipolar disorder, in partial remission, most recent episode depressed 65589061 SNOMED-CT 2017-05-17 Active Obesity, unspecified 226262221 SNOMED-CT 2017-05-17 Active Relevant diagnostic tests/laboratory data Narrative No Information Procedures Procedure Name Code Code System Target Site Date of Procedure Status Service Delivery Location Device Cod e Device Name Device UID SNOMED-CT () 2017-07-23 completed [address] [place] [address], [id number] SNOMED-CT () 2017-07-[address] [facility] [place], [place], [id number] SNOMED-CT () 2017-08-[address], [id number] SNOMED-CT () 2017-08-[address], [id number] SNOMED-CT () 2017-08-[address], [id number] SNOMED-CT () 2017-08-[address], [id number] SNOMED-CT () 2017-11-[address], [id number] [id number] SNOMED-CT () 2017-11-[address], [id number] SNOMED-CT () 2017-08-[address], [id number] SNOMED-CT () 2017-10-[address], [id number] SNOMED-CT () 2018-01-[address], [id number] SNOMED-CT () 2017-07-[address], [id number] SNOMED-CT () 2017-08-[address], [id number] SNOMED-CT () 2017-12-[address], [id number] SNOMED-CT () 2017-07-12 completed [address] [place] [address], [id number] SNOMED-CT () 2017-08-29 completed [facility] [address] [place], [place], [id number] SNOMED-CT () 2017-12-[address], [id number] SNOMED-CT () 2018-01-08 completed [address] [place] [address], [id number] SNOMED-CT () 2017-12-[address], [id number] SNOMED-CT () 2017-12-[address], [id number] SNOMED-CT () 2017-11-[address], [id number] SNOMED-CT () 2017-11-[address], [id number] SNOMED-CT () 2017-12-[address], [id number] SNOMED-CT () 2017-12-[address], [id number] SNOMED-CT () 2017-12-[address], [id number] SNOMED-CT () [address], [id number] SNOMED-CT () 2017-12-[address], [id number] SNOMED-CT () 2017-12-[address], [id number] [id number] SNOMED-CT () 2017-11-[address], [id number] SNOMED-CT () 2017-11-[address], [id number] SNOMED-CT () 2017-11-[address], [id number] SNOMED-CT () 2017-11-[address], [id number] SNOMED-CT () 2017-09-[address], [id number] SNOMED-CT () 2017-09-[address], [id number] SNOMED-CT () 2017-09-[address], [id number] SNOMED-CT () 2017-09-[address], [id number] SNOMED-CT () 2017-10-[address], [id number] SNOMED-CT () 2017-10-[address], [id number] SNOMED-CT () 2017-10-[address], [id number] SNOMED-CT () 2017-10-[address], [id number] [id number] SNOMED-CT () 2017-10-[address], [id number] SNOMED-CT () 2017-11-[address], [id number] SNOMED-CT () 2017-11-[address], [id number] [id number] SNOMED-CT () 2017-08-[address], [id number] [id number] SNOMED-CT () 2017-08-[address], [id number] [id number] SNOMED-CT () 2017-08-[address], [id number] [id number] SNOMED-CT () 2017-08-[address], [id number] SNOMED-CT () 2017-09-[address], [id number] SNOMED-CT () 2017-09-[address], [id number] [id number] SNOMED-CT () 2019-08-13 completed [address] [place], [place], [id number] SNOMED-CT () 2019-10-11 completed [address] [place], [place], [id number] SNOMED-CT () 2019-09-10 completed [address] [place], [place], [id number] SNOMED-CT () 2019-05-13 completed [address] [place], [place], [id number] SNOMED-CT () 2019-06-11 completed [address] [place], [place], [id number] SNOMED-CT () 2019-08-13 completed [address] [place], [place], [id number] SNOMED-CT () 2019-09-10 completed [address] [place], [place], [id number] [id number] SNOMED-CT () 2019-10-11 completed [address] [place], [place], [id number] [id number] SNOMED-CT () 2019-12-[address] [facility] [facility] [address] [place], [place], [id number] [id number] SNOMED-CT () 2021-03-13 completed [facility] [address] [place], [place], [id number] [id number] SNOMED-CT () 2021-04-12 completed [facility] [address] [place], [place], [id number] [id number] SNOMED-CT () 2019-05-12 completed [address] [place], [place], [id number] [id number] SNOMED-CT () 2019-12-[address] [facility] [address] [place], [place], [id number] [id number] SNOMED-CT () 2019-05-13 completed [address] [place], [place], [id number] SNOMED-CT () 2019-06-11 completed [address] [place], [place], [id number] [id number] SNOMED-CT () 2019-08-13 completed [address] [place], [place], [id number] [id number] SNOMED-CT () 2019-09-10 completed [address] [place], [place], [id number] [phone] SNOMED-CT () 2019-10-11 completed [address] [place], [place], [id number] [id number] SNOMED-CT () 2021-03-13 completed [facility] [address] [place], [place], [id number] [id number] SNOMED-CT () 2021-04-12 completed [facility] [address] [place], [place], [id number] SNOMED-CT () 2021-02-13 completed [facility] [address] [place], [place], [id number] [phone] SNOMED-CT () 2019-11-10 [address] [facility] [facility] [address] [place] [address], [id number] [phone] SNOMED-CT () 2019-07-12 completed [address] [place], [place], [id number] [phone] Encounters/Encounter Diagnoses Encounter Name Encounter Code Diagnosis Code Diagnosis Name Diagnosis CodeSystem Date of Diagnosis Service Delivery L ocation non-billable [id number] Depressive episode, unspecified SNOMED-CT 2021-[facility]-14 [facility] , , Vital Signs No Information Social History Element Description Description Start Date End Date Code CodeSystem AdditionalInfo SexAssignedAtBirth Female 2000 F AdministrativeGender Hospital Discharge Instructions * Reason For Referral Medical Equipment * FDA Assessments *
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
--- OUTSIDE RECORDS SUMMARY | 2021-05-09 23:41 | CCD ---
Author Author Yareli Farley Zeyad Organization Unknown Address [address] [address] Phone Care Team Providers Care Weatherization Coordinator Name Role Phone Zeyad Farley PCP Allergies, Adverse Reactions, Alerts Concept Allergy Name Reaction Severity Onset Date Status Documentation Date Phone Number Npid Taxonomy Code Taxonomy Desc Author Last Name Author Kassie rst Name Concept Type 914105 Risperdal unspecified Active 03/03/2019 RXNORM Problem List Concept Problem Description Status Start Date Created Date Resolv ed Date Snomed Code F32.1 Major Depressive Disorder, Single episode, Moderate Active 03/20/2021 F60.3 Borderline Personality Disorder Active 03/20/20 21 Medications Rx Norm Medication Route Route Concept Start Date Stop Date Dosage Aldair quency Duration Formula Strength Dosage Form Dosage Form Code Dosage Description Medication Id Account Npid Author First Name Author Last Name Taxonomy Code Taxonomy Desc Phone Number [id number] Celexa by mouth [id number] 10/02/2019 once a day 40 mg tablet [id number] Tammie Kent [id number] Psychiatric/Mental Health [id number] Social History Social History Element Description Concept Effective Date Smoking Status Unknown if ever smoked [id number] Immunizations No Data in Section Vital Signs No Data in Section Procedures Date Concept Id Description Targeted Site Concept Targeted Site Concept Type 03/20/2021 21800 Psychiatric Diagnostic Evaluation (Non-Medical) CPT Patient has no history of implantable de vices Encounters Encounter Start Date End Date Encounter Type Description Diagnosis Di agnosis Desc Location Author First Name Author Last Name Npid Taxonomy Cod e Taxonomy Desc Phone Number Location Addr1 Location Addr2 Location City Location [place] Location Zip [id number] 03/20/2021 03/20/2021 75136 Psychiatric Pauly gnostic Evaluation (Non-Medical) F32.1 Major depressive disorder, single episod e, moderate 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
--- OUTSIDE RECORDS SUMMARY | 2021-05-09 23:41 | CCD ---
Author Author Micheal Hernandez (Anthony) Organization [facility] Address Unknown Phone Unavailable Care Team Providers Care Security Tech Name Role Phone Shalini Hernandez PCP Unavailable Allergies, Adverse Reactions, Alerts Allergy Substance Code C odeSystem Reaction Severity Critic ality Status Start Date Moderate Medications Medication Medication Code Medication CodeSystem Start Date Stop Date Route Dose Status Fill Instructions RxNorm Problems Problem Name Code CodeSy stem Alternate Code Alternate CodeSystem Start Date End Date Status Narrative Depressive episode, unspecified [id number] [facility] 2017-05-17 Active Bipolar disorder, in partial remission, most recent episode depressed [id number] [facility] 2017-05-17 Active Reactive attachment disorder of childhood 09353849 [facility] 2017-05-17 Active Obesity, unspecified [id number] [facility] 2017-05-17 Active Bipolar II disorder 98726441 [facility] 2019-11-09 Active Bipolar disorder, in partial remission, most recent episode depressed 75000668 [facility] 2017-05-17 Active Bipolar II disorder 19505750 [facility] 2019-11-09 Active Bipolar disorder, in partial remission, most recent episode depressed 42327760 [facility] 2017-05-17 Active Recurrent depressive disorder, current episode severe without psychotic symptoms 12515463 [facility] 2019-11-08 Active Emotionally unstable personality disorder [facility] 2019-11-09 Active Depressive episode, unspecified 37876484 [facility] 2017-05-17 Active Bipolar II disorder 91360296 [facility] 2019-11-09 Active Emotionally unstable personality disorder [facility] 2019-11-09 Active Emotionally unstable personality disorder [facility] 2019-11-09 Active Reactive attachment disorder of childhood 17345833 [facility] 2017-05-17 Active Depressive episode, unspecified 67059464 [facility] 2017-05-17 Active Recurrent depressive disorder, current episode severe without psychotic symptoms 47344356 [facility] 2019-11-08 Active Bipolar disorder, in partial remission, most recent episode depressed 28443086 [facility] 2017-05-17 Active Reactive attachment disorder of childhood 62490163 [facility] 2017-05-17 Active Reactive attachment disorder of childhood 97269133 [facility] 2017-05-17 Active Obesity, unspecified 244786699 [facility] 2017-05-17 Active Bipolar disorder, in partial remission, most recent episode depressed 47943836 [facility] 2017-05-17 Active Homelessness 903133241 [facility] 2021-01-02 Active Obesity, unspecified 909807452 [facility] 2017-05-17 Active Reactive attachment disorder of childhood 99764023 [facility] 2017-05-17 Active Bipolar II disorder 16770208 [facility] 2019-11-09 Active Emotionally unstable personality disorder 79832653 [facility] 2019-11-09 Active Reactive attachment disorder of childhood 20327297 [facility] 2017-05-17 Active Obesity, unspecified 922061668 [facility] 2017-05-17 Active Depressive episode, unspecified 30914064 [facility] 2017-05-17 Active Obesity, unspecified 909751129 [facility] 2017-05-17 Active Bipolar disorder, in partial remission, most recent episode depressed 64611210 [facility] 2017-05-17 Active Reactive attachment disorder of childhood 58677711 [facility] 2017-05-17 Active Obesity, unspecified 427195925 [facility] 2017-05-17 Active Obesity, unspecified 967265937 [facility] 2017-05-17 Active Homelessness 460350927 [facility] 2021-01-02 Active Recurrent depressive disorder, current episode severe without psychotic symptoms 31011282 [facility] 2019-11-08 Active Recurrent depressive disorder, current episode severe without psychotic symptoms 39731119 [facility] 2019-11-08 Active Bipolar disorder, in partial remission, most recent episode depressed 72266232 [facility] 2017-05-17 Active Depressive episode, unspecified 91454345 [facility] 2017-05-17 Active Relevant diagnostic tests/laboratory data Narrative No Information Procedures Procedure Name Code Code System Target Site Date of Procedure Status Service Delivery Location Device Cod e Device Name Device UID SNOMED-CT () 2017-07-23 completed [address] [address] [place] [address], [id number] [facility] () 2017-07-30 completed [facility] [place], [place], [id number] [facility] () 2017-08-[address], [id number] [facility] () 2017-08-[address], [id number] [facility] () 2017-08-[address], [id number] [facility] () 2017-08-[address], [id number] [facility] () 2017-11-[address], [id number] [facility] () 2017-11-[address], [id number] [facility] () 2017-08-[address], [id number] [id number] [facility] () 2017-10-[address], [id number] [facility] () 2018-01-[address], [id number] [facility] () 2017-07-[address], 564857960 [id number] [facility] () 2017-08-[address], [id number] [facility]OM[facility] () 2017-12-[address], [id number] [id number] [facility]OM[facility] () 2017-07-12 completed [address] [address] [place] [address], [id number] SNOM[facility]-CT () 2017-08-29 completed [facility] [address] [place], [place], [id number] [facility]OM[facility] () 2017-12-[address], [id number] [facility]OM[facility] () 2018-01-08 completed [address] [address] [place] [address], [id number] [facility]OM[facility] () 2017-12-[address], [id number] [facility]OM[facility] () 2017-12-[address], [id number] [facility] () 2017-11-[address], [id number] [facility] () 2017-11-[address], [id number] [facility] () 2017-12-[address], [id number] [facility] () 2017-12-[address], [id number] [facility]OM[facility] () 2017-12-[address], [id number] SNOMED-CT () [address], [id number] [facility]OM[facility] () 2017-12-[address], [id number] [facility]OM[facility] () 2017-12-[address], [id number] [facility] () 2017-11-[address], [id number] [id number] [facility] () 2017-11-[address], [id number] [facility] () 2017-11-[address], [id number] [facility]OM[facility] () 2017-11-[address], [id number] [id number] [facility]OM[facility] () 2017-09-[address], [id number] [facility]OM[facility] () 2017-09-[address], [id number] [facility]OM[facility]-CT () 2017-09-[address], [id number] [id number] [facility]OM[facility] () 2017-09-[address], [id number] [facility]OM[facility] () 2017-10-[address], [id number] [facility]OM[facility] () 2017-10-[address], [id number] [facility]OM[facility] () 2017-10-[address], [id number] [facility]OM[facility]-CT () 2017-10-[address], [id number] [facility]OM[facility] () 2017-10-[address], [id number] [facility]OM[facility]-CT () 2017-11-[address], [id number] [facility]OM[facility] () 2017-11-[address], 299369591 [id number] [facility]OM[facility] () 2017-08-[address], [id number] [id number] [facility]OM[facility] () 2017-08-[address], 302190473 [id number] [facility]OM[facility] () 2017-08-[address], [id number] [id number] [facility]OM[facility] () 2017-08-[address], [id number] [id number] [facility]OM[facility]-CT () 2017-09-[address], [id number] SNOMED-CT () 2017-09-[address], [id number] SNOMED-CT () 2019-08-13 completed [address] [place], [place], [id number] SNOMED-CT () 2019-10-11 completed [address] [place], [place], [id number] [id number] SNOMED-CT () 2019-09-10 completed [address] [place], [place], [id number] SNOMED-CT () 2019-05-13 completed [address] [place], [id number] SNOMED-CT () 2019-06-11 completed [address] [place], [place], 579938[address] [id number] SNOMED-CT () 2019-08-13 completed [address] [place], [id number] SNOMED-CT () 2019-09-10 completed [address] [place], [id number] SNOMED-CT () 2019-10-11 completed [address] [place], [address] [id number] SNOMED-CT () 2019-12-[address] [facility] [facility] [address] [place], [place], [id number] SNOMED-CT () 2021-03-13 completed [facility] [address] [place], [place], [id number] SNOMED-CT () 2019-05-12 completed [address] [place], [place], [id number] [id number] SNOMED-CT () 2019-12-[address] [facility] [facility] [address] [place], [place], [id number] [id number] SNOMED-CT () 2019-05-13 completed [address] [place], 9[address] [id number] SNOM[facility]-CT () 2019-06-11 completed [address] [place], [address] [id number] SNOMED-CT () 2019-08-13 completed [address] [place], 3[address] [id number] SNOMED-CT () 2019-09-10 completed [address] [place], [id number] [id number] SNOMED-CT () 2019-10-11 completed [address] [place], [address] [id number] SNOMED-CT () 2021-03-13 completed [facility] [address] [place], [place], [id number] SNOMED-CT () 2021-02-13 completed [facility] [address] [place], [place], [id number] [id number] SNOMED-CT () 2019-11-10 [address] [facility] [address] [place] [address], [id number] [id number] SNOMED-CT () 2019-07-12 completed [address] [place], [place], [id number] [id number] Encounters/Encounter Diagnoses Encounter Name Encounter Code Diagnosis Code Diagnosis Name Diagnosis CodeSystem Date of Diagnosis Service Delivery L ocation non-billable 68970 13338 [id number] Depressive episode, unspecified [facility] , , Vital Signs No Information Social History Element Description Description Start Date End Date Code CodeSystem AdditionalInfo SexAssignedAtBirth Female 2000 [facility] Discharge Instructions * Reason For Referral Medical Equipment * FDA Assessments *
--- OUTSIDE RECORDS SUMMARY | 2021-05-09 23:41 | CCD | Summary of Care ---
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 GFRNONAA in the last 168 hours. No results found for: CKTOTAL, CKMB, CKMBINDEX, TROPONINI No results found for: LIPASE No results found for: AMYLASE No results found for: PTTNo results found for: INR, PROTIME Lab Results Component Value Date TSH 1.150 09/02/2019 ASSESSMENT: Mr. Yareli Hatch is a 20 y.o. year old adult who is here for Principal Problem: Suicidal ideation PLAN Suicidal ideation with worsening depression - Continue inpatient evaluation on 5W. Patient currently has no acute medical co ncerns or questions at this time. Obesity - BMI 48.55, diet and exercise modifications recommended. DVT Prophylaxis with ambulation. Dietary Orders (From admission, onward) Start Ordered 02/21/212017 Diet Adult; Regular DIET EFFECTIVE NOW Question Answer Comment Age Adult Diet Regular 02/21/212021 Code status: full code. ~~~ Ramirez Colby PA [facility] Medicine/Psychiatry [facility] 02/22/2021 Counseling and Coordination of Care: Time was a significant factor with this pat ient encounter. Total time spent with patient was 45 minutes. Magy Diop MD Associated attestation - Magy Diop MD - 02/23/2021 4:37 PM EDT I agree with the plan and course of action documented in this encounter Miscellaneous Notes * Safety Plan - Katerine Tao LCSW - 02/25/2021 11:39 AM EDT Images from the original note were not included. PATIENT SAFETY PLAN Preferred Name: Mak Hatch Legal Name: Yareli Hatch ( ) Level of Risk: Step 1. Warning Signs (thoughts, images, mood, situation, behavior) that a crisi s may be developin. Pacing (speed walking) 2. Talking faster 3. Swearing 4. Yelling 5. Slam doors Step 2. Internal Coping Strategies - Things that I can do to take my mind off my problems without contacting another person (relaxation technique, physical acti vity): 1. Music 2. Coloring 3. Journaling 4. Reading 5. Drawing Step 3. People and social settings that provide distraction: 1. Name: Ramila Pretty CM Place: community clinic Step 4. People whom I can ask for help: 1. Name: Regine Hinkle Phone #: [phone] Step 5. Professionals or agencies I can contact during a crisis: 1. Clinician Name: Grayson Zavala Phone #: 2. Clinician Name: Wendy Kent Phone #: 3. Local Urgent Care/ED: go to nearest emergency room or call 911 in an emergenc y 4. Suicide Prevention Lifeline Phone: [phone] ([phone]) - Available 24 hours everyday 5. Contact Hotline 01/02 in [facility]: - Available 24 hours everyday 6. Crisis Text Line: Provides free, 01/02 support by text. Text Cwd6 to 430368 7. Mobile Crisis Line, [employer], Step 6. Make the environment safe: 1. Keep anything I can harm myself with away from me The one thing that is most important to me and worth living for is: My support system and my future, and my biological father PLANNING FOR SPECIFIC CHANGES OR EVENTS (FORSEEABLE CHANGES) As I take the next steps toward feeling better, what are two events or changes t hat could make me feel overwhelmed, suicidal, or put me into crisis? 1. Being abandoned. What can you or someone else do if this happens? Support me, get the possible help Patient/Parent Signature: Print Name: Date: (parent signature only under 18) Safety Plan developed, reviewed, and copy given to the patient. Provider Signature: Print Name/Title: Date/Time: * Plan of Care - Katerine Tao LCSW - 02/25/2021 8:07 AM EDT Problem: Discharge Planing Goal: Inpatient or Outpatient Follow-up Outcome: Progressing Goal: Patient will identify current and/or prospective inpatient/outpatient pro viders Outcome: Progressing Note: Yareli identified psychiatrist and therapist as current inpatient/outpat ient providers and psychiatrist and therapist as prospective inpatient/outpatien t providers. * Assessment - Katerine Tao LCSW - 02/25/2021 7:57 AM EDT Social Work Psychosocial Assessment - Initial Patient Name: Mak Armas he/him/his Date of : 2000 County of Residence: [place] Admitting Dx: Suicidal ideation [R45.851] Admitting Provider: Magy Diop MD Referral Type: Psych Referral Source: 5W Admission Reason for Referral: Mental Health Issues Mental Health Issues; suicidal ideation Date: February 25, 2021 Emergency Contacts Name: patrick Prater Relationship: Other Address: Home: Work: Mobile: Primary Caregiver: self Informant(s): Patient Authorized to Consent: unknown Patient's Description of the Problem Patient reports wanting to get away from his housing program as he is unhappy th ere and this was his escape. Family's/Guardian's Description of the Problem Not assessed Precipitating Events Moving into his [facility] apartment where he did not feel he was getting enough servic es Family Constellation and Support System Yareli is Single. 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 Yes Currently in [facility] Housing Socioeconomic History Financial Resource Strain: Unknown Difficulty of Paying Living Expenses: Patient refused Food Insecurity: Unknown Worried About Running Out of Food in the Last Year: Patient refused Ran Out of Food in the Last Year: Patient refused Transportation Needs: No Transportation Needs Lack of Transportation (Medical): No Lack of Transportation (Non-Medical): No Education Not currently in school/taking classes Educational Assistance Special Services Barriers to Learning Learns Best By Doing, Hearing, Seeing Highest Level of Education Completed Communication 10th grade Employment Disability Financial Health Insurance: Payor: [employer]) / Plan: [employer]) MEDICAID MANAGED CARE / Product Type: *No [...] to music, coloring and reading Spiritual, Cultural, Nondenominational Patient denies Multidisciplinary Cultural Assessment 1. Where were you born?: [facility] 2. What languages are spoken in your home?: Canadian 3. What other languages do you speak?: Canadian 4. Are you able to read and write in Canadian?: Yes 6. Who do you rely on when you're ill?: Other 7. Would you like us to contact someone from your place of rastafarian or sid?: N o 8. Describe your usual diet: Regular 9. Are there times during the year when you change your diet in celebration of or other ethnic holidays?: No 10. Are [...] Substance Use Disorder or Dependency Patient denies Current Mental Health Symptoms (last two weeks) Mental Health History Yes, patient reports mental health history Psych treatment compliant? Yes Psych Diagnoses Diagnosis Age/Date of Dx Diagnosed By Treatment Setting Treatment History/Comme nts BPD/Depression Multiple admissions Patient is currently getting services from [facility] Yareli currently receives services from outpatient mental health. 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 Individual Strengths Individual Opportunities Stable income, insurance, good supports Medication compliance Family Strengths Family Opportunities No family ties Not assessed Clinical Impression/Assessment/Summary (addressing DSM-5 and CPT codes) SW met with patient with the treatment team to complete a psychosocial assessmen t. Patient is calm but suspicious of the treatment team and states that he might as well go home if we are not going to treat him. The team assured patient that we could help, medications were adjusted and patient was allowed to change from his paper gown to his own clothing. Patient is asking to be moved to a housing program in [facility] and SW will follow up with that request. Treatment Plan Stabilize on medications and group therapy Goals and Objectives Develop a plan to stay stable in the community Interventions Completed psychosocial assessment. Assessed for SW needs. Length of visit with patient: 40 minutes Signature: Katerine Tao Date: February 25, 2021 * Plan of Care - Darlene Burnham RN - 02/24/2021 5:50 PM EDT RN Shift Report: Report received at 0700 from previous RN. Patient has been visi ble throughout the shift though isolated to themself. He has approached the nurs e's station multiple times and begins to act out if they feel their needs are no t met immediately or are not getting enough attention. He wrote a letter stating that he was going to cheek their medications and overdose "within the next 72 h ours" - was told that mouth checks would be performed. He is hoping to be discha rged on Wednesday. Accepted all scheduled medications and remains on 15 minute c hecks per protocol. Educated and encouraged to wear a face mask and denies S/S C OVID-19. Will continue to monitor and provide for safety. Problem: Borderline Personality Disorder (BPD) Goal: Reduce or eliminate acting out behaviors Description: Patient will be free from anger outbursts, self-harm, sucidal threa ts, property destruction, and harm to others throughout hospitalization Outcome: Not Progressing Goal: Patient will comply with medication regimen Description: Patient will work with staff to learn about his medications; Outcome: Progressing Goal: Patient will verbalize 2 positive coping skills to help deal with negative thoughts and feelings Description: As evidenced by coping strategies, distraction techniques, relaxati on techniques, socialization, and skill acquisition Outcome: Not Progressing Goal: Patient will refrain from self-harm Description: Patient will complete a contract for safety and approach staff if f eeling unsafe Outcome: Progressing * Plan of Care - Christel Maria RN - 02/23/2021 3:56 PM EDT RN SHIFT NOTE: [phone] received report. Pt in dayroom. States preferred name a s "Mak". States mood as "fine". Affect labile. Thought process malingering. Den ies SI/ HI/ AVH. Denies pain. Around 1900 pt in dayroom yelling at peer and thre w a marker at her. Pt easily redirected, walked to room, security present. Pt co mmenting that she enjoys male presence and will "act up again, just to have secu rity called". Reinforced safety rules and expectations. This RN spoke with pt in depth re: safety, coping strategies, lifestyle, etc. Pt denies SI but states " I don't want to say that and be discharged too early" pt refused scheduled medic ations and vs. Safety maintained at all times, 15 min checks. Report will be gi geovany to oncoming RN. Problem: Borderline Personality Disorder (BPD) Goal: Reduce or eliminate acting out behaviors Description: Patient will be free from anger outbursts, self-harm, sucidal threa ts, property destruction, and harm to others throughout hospitalization Outcome: Progressing Goal: Patient will comply with medication regimen Description: Patient will work with staff to learn about his medications; Outcome: Progressing Goal: Patient will verbalize 2 positive coping skills to help deal with negative thoughts and feelings Description: As evidenced by coping strategies, distraction techniques, relaxati on techniques, socialization, and skill acquisition Outcome: Progressing Goal: Patient will refrain from self-harm Description: Patient will complete a contract for safety and approach staff if f eeling unsafe Outcome: Progressing * Plan of Care - Mildred Armando RN - 02/23/2021 11:18 AM EDT Problem: Psych Acuity Scoring Goal: Acuity Scoring Description: Acuity Scoring for Psych 02/23/2021 1115 by Mildred Armando RN Outcome: Not Progressing Flowsheets (Taken 02/23/2021 111) Medications: 11- Psychosocial Behavior and Safety Precautions: SI/HI without plan or intent History of psychosis, sexually acting out,impulsivity, hallucinations, or delus ions History of aggression, suicidality or self harm Frequent (15 min) checks Difficult to redirect Verbal or physical aggression/threats demonstrated in the last 24 hours Elopement risk Complicated Meds and IV's: IM meds over objection in the last 24 hours 02/23/2021 1114 by Mildred Armando RN Outcome: Not Progressing Problem: Borderline Personality Disorder (BPD) Goal: Reduce or eliminate acting out behaviors Description: Patient will be free from anger outbursts, self-harm, sucidal threa ts, property destruction, and harm to others throughout hospitalization 02/23/2021 1115 by Mildred Armando RN Outcome: Not Progressing 02/23/2021 1114 by Mildred Armando RN Outcome: Not Progressing Goal: Patient will comply with medication regimen Description: Patient will work with staff to learn about his medications; 02/23/2021 1115 by Mildred Armando RN Outcome: Not Progressing 02/23/2021 1114 by Mildred Armando RN Outcome: Not Progressing Goal: Patient will verbalize 2 positive coping skills to help deal with negative thoughts and feelings Description: As evidenced by coping strategies, distraction techniques, relaxati on techniques, socialization, and skill acquisition 02/23/2021 1115 by Mildred Armando RN Outcome: Not Progressing 02/23/2021 1114 by Mildred Armando RN Outcome: Not Progressing Goal: Patient will refrain from self-harm Description: Patient will complete a contract for safety and approach staff if f eeling unsafe 02/23/2021 111 by Mildred Armando RN Outcome: Not Progressing 02/23/2021 1114 by Mildred Armando RN Outcome: Not Progressing Goal: Patient will refrain from harming others or destroying property during hos pitalization Description: Patient will control urges and impulsive behviors 02/23/2021 1115 by Mildred Armando RN Outcome: Not Progressing 02/23/2021 1114 by Mildred Armando RN Outcome: Not Progressing * Plan of Care - Thi Sarah RN - 02/22/2021 4:23 PM EDT Problem: Borderline Personality Disorder (BPD) Goal: Patient will comply with medication regimen Description: Patient will work with staff to learn about his medications; Outcome: Progressing * Plan of Care - Ina Martinez RN - 02/22/2021 11:00 AM EDT Pt visible in the dayroom dressed in paper gowns. Would only respond to assessme nt questions by shrugging his shoulders. Pt did say tht he used to be "Romel" bu t now he is Mak. When asked about meds, pt responded, "I don't plan on taking m eds." Later pt approached window requesting meds. Did not want meds reviewed. Mo uth checks performed. Pt appears irritable, insolent, and oppositional defiant s tating, "I'm a stubborn bitch." He laughs and jokes at times and at other times banging noises coming from his room. Pt refused Atarax. Pt did try to hold door close later in shift. Responded to redirection and came out of room to dayroom. Pt says he is not suicidal and only said it because he does not want to be disc harged to [facility] or [place]. He can be rude, dismissive and at times talks down to staff but is redirectable. Remains in paper gowns without linen in the room a s pt has demonstrated impulsive behavior and fears discharge. Continue to monito r pt closely. * Plan of Care - Ruth Summers GN - 02/21/2021 8:08 PM EDT Psychiatric Treatment Plan Patient Yareli Hatch 2000 Admit Date 02/21/2021 Treatment Plan Treatment Plan (Active) Problem: Borderline Personality Disorder (BPD) Dates: Start: 02/21/21 Description: As evidenced by impulsivity, self-harm, attention seeking behavior s, ineffective coping skills, negative thoughts, and labile mood Goal: Reduce or eliminate acting out behaviors Dates: Start: 02/21/21 Expected End: 02/28/21 Description: Patient will be free from anger outbursts, self-harm, sucidal thre ats, property destruction, and harm to others throughout hospitalization Goal: Patient will comply with medication regimen Dates: Start: 02/21/21 Expected End: 02/28/21 Description: Patient will work with staff to learn about his medications; Intervention: Staff will offer medications as scheduled Frequency: Q Shift Dates: Start: 02/21/21 Description: Nurse on shift will document patient's acceptance and response to medications Intervention: Staff will identify the need for PRN medication Frequency: PRN Dates: Start: 02/21/21 Description: RN on shift will encourage patient to identify symptoms of increas ed agitation/irritability requiring medications Goal: Patient will verbalize 2 positive coping skills to help deal with negativ e thoughts and feelings Dates: Start: 02/21/21 Expected End: 02/28/21 Description: As evidenced by coping strategies, distraction techniques, relaxat ion techniques, socialization, and skill acquisition Intervention: Staff will provide 1:1 therapeutic communication and assess patie nts mood Frequency: Daily Dates: Start: 02/21/21 Description: RN, RT, or OT will monitor and record mood/behavior Intervention: Staff will encourage patient to attend groups Frequency: Daily Dates: Start: 02/21/21 Description: Patient should attend stress management group, relaxation group, c ommunication group, social work group, therapy group, and nursing group Goal: Patient will refrain from self-harm Dates: Start: 02/21/21 Expected End: 02/28/21 Description: Patient will complete a contract for safety and approach staff if feeling unsafe Intervention: Staff will encourage patient to verbalize feelings Frequency: Q Shift Dates: Start: 02/21/21 Description: RN will meet with patient to assess patient's safety and engage pa tient in a verbal contract for safety Intervention: Staff will maintain a safe and therapeutic milieu Frequency: Q Shift Dates: Start: 02/21/21 Description: Frequent or routine checks to maintain safety and monitor behavior Goal: Patient will refrain from harming others or destroying property during ho spitalization Dates: Start: 02/21/21 Expected End: 02/28/21 Description: Patient will control urges and impulsive behviors Intervention: Staff will encourage patient to verbalize feelings Frequency: Q Shift Dates: Start: 02/21/21 Description: RN will meet with patient to assess patient's safety and engage pa tient in a verbal contract for safety Intervention: Staff will be consistent with the patient and set limits regardin g acceptable behaviors, rules and responsibilities Frequency: Q Shift Dates: Start: 02/21/21 Intervention: Staff will assist patient with utilizing non-destructive ways to defuse anger Frequency: Q Shift Dates: Start: 02/21/21 Description: Staff will work with patient to learn how to verbally communicate feelings of anger, assist patient with identifying stressors, other techniques t o decrease agitation, and when PRN medications may be helpful Problem: Psych Acuity Scoring Dates: Start: 02/21/21 Goal: Acuity Scoring Dates: Start: 02/21/21 Description: Acuity Scoring for Psych Treatment Plan (Resolved) There are no resolved problems. Treatment Team: Attending Provider: Velasquez Keith MD; Registered Nurse: DARRON Solomon I have reviewed and agree that the above treatment plan is appropriate for Guille Hatch. Signature: Ruth Summers Date: February 21, 2021 8:08 PM documented in this encounter Plan of Treatment Order Schedule Name Type Priority Associated Diag noses Continuous for 30 Days for 30 Days start ing 02/21/2021 until 02/21/2021 Consult to Assisted PET Rehab Routine Therapy-Rehab/Psych Health Maintenance Due Date Last Done Comments [...] this topic documented as of this encounter Results Not on filedocumented in this encounter Visit Diagnoses Diagnosis Suicidal ideation - Primary documented in this encounter Administered Medications Action Date Dose Rate Site Medication Order MAR Action 02/25/2021 5:23 AM EDT 650 mg acetaminophen (TYLENOL) tablet 650 mg Given 650 mg, Oral, Every 6 hours PRN, All Levels of Pain (Pain Scale Score 1-10), Starting on Wed02/21/21 at 2018, For 30 days, Maximum daily dose of acetaminophen is 3,000 mg from all sources in 24 hrs. 650 mg Given 02/24/2021 7:58 PM EDT 650 mg Given 02/23/2021 11:37 PM EDT 02/25/2021 9:27 AM EDT 10 mg loratadine (CLARITIN) tablet 10 mg Given 10 mg, Oral, Daily Standard, First dos e on 02/22/21 at 0900, For 30 days 10 mg Given 02/24/2021 7:51 AM EDT 10 mg Given 02/23/2021 7:54 AM EDT 02/25/2021 9:27 AM EDT 80 mg lurasidone HCl (LATUDA) tablet 80 mg Given 80 mg, Oral, Daily Standard, First dos e on Wed02/22/21 at 0900, For 30 days, Administer with food. 80 mg Given 02/24/2021 7:51 AM EDT 80 mg Given 02/23/2021 7:54 AM EDT 02/24/2021 10:13 PM EDT 10 mg montelukast (SINGULAIR) tablet 10 mg Given 10 mg, Oral, Nightly, First dose on Wed02/21/21 at 2200, For 30 days 02/24/2021 10:54 AM EDT 2 mg nicotine (NICORETTE) lozenge 2 mg Given 2 mg, Mouth/Throat, Every 2 hours PRN , Smoking cessation, Starting on Wed02/21/21 at 2018, For 30 days, Should no t be chewed or swallowed; allow to dissolve slowly (~20-30 minutes) 2 mg Given 02/24/2021 6:35 AM EDT 2 mg Given 02/23/2021 6:25 PM EDT 02/24/2021 10:13 PM EDT 20 mg pravastatin (PRAVACHOL) tablet 20 mg Given 20 mg, Oral, Every evening, First dose on Wed02/21/21 at 2100, For 30 days 02/24/2021 10:13 PM EDT 2 mg prazosin (MINIPRESS) capsule 2 mg Given 2 mg, Oral, Nightly, First dose (after last modification) on Wed02/24/21 at 2200, For 27 doses, Check vital signs before administering 02/25/2021 9:27 AM EDT 10 mg propranolol (INDERAL) tablet 10 mg Given 10 mg, Oral, 2 Times Daily, First dose on Wed02/21/21 at 2100, For 30 days, Check vital signs before administering 10 mg Given 02/24/2021 10:13 PM EDT 10 mg Given 02/24/2021 7:51 AM EDT 02/25/2021 9:27 AM EDT 150 mg sertraline (ZOLOFT) tablet 150 mg Given 150 mg, Oral, Daily Standard, First dose on Wed02/22/21 at 0900, For 30 day s 150 mg Given 02/24/2021 7:51 AM EDT 150 mg Given 02/23/2021 7:54 AM EDT 02/25/2021 9:27 AM EDT 75 mg topiramate (TOPAMAX) tablet 75 mg Given 75 mg, Oral, Daily Standard, First dos e on Wed02/22/21 at 0900, For 30 days 75 mg Given 02/24/2021 7:51 AM EDT 75 mg Given 02/23/2021 7:54 AM EDT 02/23/2021 11:38 PM EDT 50 mg trazodone (DESYREL) tablet 50 mg Given 50 mg, Oral, Nightly PRN, Sleep, Starting on Wed02/21/21 at 2020, For 30 days Action Date Dose Rate Site Medication Order MAR Action 02/22/2021 4:53 PM EDT 400 mg ARIPiprazole ER (KATTY MAINTENA) Given extended-release injectable suspension 400 mg 400 mg, Intramuscular, Once, On Wed02/22/21 at 1545, For 1 dose chlorproMAZINE (THORAZINE) 50 MG/2ML injection Starting on Wed02/22/21 at 1723, For 1 dose, Chelsey Flores: stefany override 02/22/2021 5:30 PM EDT 50 mg chlorproMAZINE (THORAZINE) injection 50 Given mg 50 mg, Intramuscular, Once, On 02/22/21 at 1730, For 1 dose 02/23/2021 9:01 AM EDT 50 mg Right De ltoid chlorproMAZINE (THORAZINE) injection 50 Given mg 50 mg, Intramuscular, Once, On 02/23/21 at 0900, For 1 dose diphenhydrAMINE (BENADRYL) 50 MG/ML injection Starting on 02/22/21 at 1723, For 1 dose, Chelsey Flores: cabinet override 02/22/2021 5:29 PM EDT 50 mg diphenhydrAMINE (BENADRYL) injection 50 Given mg 50 mg, Intramuscular, Once, On 02/22/21 at 1730, For 1 dose 02/23/2021 9:01 AM EDT 50 mg Left Del toid diphenhydrAMINE (BENADRYL) injection 50 Given mg 50 mg, Intramuscular, Once, On 02/23/21 at 0900, For 1 dose documented in this encounter Active and Recently Administered Medications Times are shown in EDT. 02/24/2021 02/25/2021 Medication Order 02/23/2021 chlorproMAZINE (THORAZINE) injection 50 0901 (Given - mg (COMPLETED) Provider: Mildred 50 mg, Intramuscular, Once, On Sun Prabha, RN) 02/23/21 at 0900, For 1 dose diphenhydrAMINE (BENADRYL) injection 50 0901 (Given - mg (COMPLETED) Provider: Mildred 50 mg, Intramuscular, Once, On Sun Prabha, RN) 02/23/21 at 0900, For 1 dose 0751 (Given - Provider: Darlene Burnham , JOSE LUIS) 0927 (Given - Provider: Darlene Burnham , RN) loratadine (CLARITIN) tablet 10 mg 0754 (Given - 10 mg, Oral, Daily Standard, First dose Provider: Jorge nievesmimik on 02/22/21 at 0900, For 30 days Prabha, RN) 0751 (Given - Provider: Darlene Burnham , JOSE LUIS) 0927 (Given - Provider: Darlene Burnham , RN) lurasidone HCl (LATUDA) tablet 80 mg 0754 (Given - 80 mg, Oral, Daily Standard, First dose Provider: Jorge nievesmila on 02/22/21 at 0900, For 30 days, Prabha, RN) Administer with food. 2212 (Given - Provider: Ramiro Khalil) 2199 (Due) montelukast (SINGULAIR) tablet 10 mg 2035 (Not Given - 10 mg, Oral, Nightly, First dose on Wed Provider: Lorraine tharine 02/21/21 at 2200, For 30 days Jorge Maria RN - Reason: Patient/family refused) 2212 (Given - Provider: Ramiro Khalil) 2099 (Due) pravastatin (PRAVACHOL) tablet 20 mg 2035 (Not Given - 20 mg, Oral, Every evening, First dose Provider: Mai dixon on Wed02/21/21 at 2100, For 30 days Jorge Maria RN - Reason: Patient/family refused) 2212 (Given - Provider: Ramiro Khalil) 2199 (Due) prazosin (MINIPRESS) capsule 2 mg 2 mg, Oral, Nightly, First dose (after last modification) on Wed02/24/21 at 2200, For 27 doses, Check vital signs before administering 0751 (Given - Provider: Darlene Burnham RN)2212 (Given - Provider: Leeroy Dorantes RN) 926 (Given - Provider: Darlene Burnham RN)2099 (Due) propranolol (INDERAL) tablet 10 mg 757 (Given - 10 mg, Oral, 2 Times Daily, First dose Provider: Joey damon on Wed02/21/21 at 2100, For 30 days, Prabha, RN)2036 ( Not Check vital signs before administering Given - Provi víctor: Christel Maria RN - Reason: Patient/family refused) 075 (Given - Provider: Darlene Burnham RN) 09 (Given - Provider: Darlene Burnham RN) sertraline (ZOLOFT) tablet 150 mg 0754 (Given - 150 mg, Oral, Daily Standard, First Provider: Sean la dose on Wed02/22/21 at 0900, For 30 days Prabha, RN) 075 (Given - Provider: Darlene Burnham RN) 09 (Given - Provider: Darlene Burnham RN) topiramate (TOPAMAX) tablet 75 mg 0754 (Given - 75 mg, Oral, Daily Standard, First dose Provider: Jorge burt on Wed02/22/21 at 0900, For 30 days Prabha, RN) 02/24/2021 02/25/2021 Medication Order 02/23/2021 1958 (Given - Provider: Francia Carmen LPN) 0523 (Given - Provider: DARRON Solomon - Comment: headache) acetaminophen (TYLENOL) tablet 650 mg 1531 (Given - 650 mg, Oral, Every 6 hours PRN, All Provider: Mai dixon Levels of Pain (Pain Scale Score 1-10), Jorge Maria RN )2337 Starting on Wed02/21/21 at 2017, For 30 (Given - Pro vider: days, Maximum daily dose of Lorraine Peña, acetaminophen is 3,000 mg from all RN) sources in 24 hrs. hydrOXYzine (ATARAX) tablet 50 mg 50 mg, Oral, Every 6 hours PRN, Anxiety, Sleep, Starting on Wed02/21/21 at 2017, For 30 days magnesium hydroxide (MILK OF MAGNESIA) 400 MG/5ML oral suspension 30 mL 30 mL, Oral, Daily PRN, Constipation, Starting on Wed02/21/21 at 2017, For 30 days, If serum creatinine > 2 notify provider before administering. 0635 (Given - Provider: Kacie Ravi, JOSE LUIS )1054 (Given - Provider: Darlene Burnham, JOSE LUIS) nicotine (NICORETTE) lozenge 2 mg 1825 (Given - 2 mg, Mouth/Throat, Every 2 hours PRN, Provider: Nicole sood Smoking cessation, Starting on Wed Jorge Maria RN) 02/21/21 at 2017, For 30 days, Should no t be chewed or swallowed; allow to dissolve slowly (~20-30 minutes) trazodone (DESYREL) tablet 50 mg 2338 (Given - 50 mg, Oral, Nightly PRN, Sleep, Provider: Lorraine Bonilla Starting on Wed02/21/21 at 2020, For 30 JOSE LUIS Peña) days documented in this encounter
--- OUTSIDE RECORDS SUMMARY | 2021-05-09 23:48 | CCD ---
Author Author [facility] Organization [facility] Address Unknown Phone Unavailable Support Name Relationship Address Phone TULIO HUTCHISON Next Of Kin [address] [facility] [address] [place] [address] LIVING, TRANSITIONAL Next Of Kin [address] [place] [address] Unavailable N, PER PT ONE Next Of Kin [address] [facility] [address], [place] [address] WILMAR LOZA Next Of Kin [address] [place] [address] NO ONE, PATIENT PER Next Of Kin [address] [place] [address] JOAN WOODWARD Next Of Kin Unknown Unavailable Yamileth Aleman Next Of Kin [address] [place] [address] CONTACT, NO Next Of Kin Unknown NO, CONTACT Next Of Kin Unknown U Next Of Kin Unknown Unavailable TLS, RESIDENTS [facility] Next Of Kin [address] [place] [address] Camelia Martinez Next Of Kin [address] [place] [address] UN Next Of Kin Unknown Unavailable none to, list Next Of Kin [address] [facility] [address] [place] [address] ALIZA HATCH Next Of Kin [address] [place] [address] KAREN GODFREY Next Of Kin [address] [place] [address] TL, S Next Of Kin [address] [place] [address] PEPPER TORIBIO Next Of Kin Unknown UE Next Of Kin Unknown Unavailable STEPH PEPPER Next Of Kin [address] [place] [address] S Next Of Kin Unknown Unavailable Mainor HATCH Next Of Kin [address] [place] [address] ST Next Of Kin Unknown Unavailable Jorge HATCH Next Of Kin [address] [place] [address] Care Team Providers Care Brass Molder Name Role Phone LaBarge, Zeyad Unavailable SYSTEM IN, NOT IN PROVIDER Unavailable Unavailable William Bro Unavailable KYLIE العلي MD Unavailable Unavailable KYLIE العلي MD Unavailable Unavailable TARA CANELA MD Unavailable Unavailable TARA CANELA MD Unavailable Unavailable Fariba Sotomayor Unavailable WINNIE, A KENRICK PA Unavailable Unavailable WINNIE, A KENRICK PA Unavailable Unavailable WINNIE, A KENRICK PA Unavailable Unavailable WINNIE, A KENRICK PA Unavailable Unavailable WINNIE, A KENRICK PA Unavailable Unavailable WINNIE, A KENRICK PA Unavailable Unavailable WINNIE, A KENRICK PA Unavailable Unavailable WINNIE, A KENRICK PA Unavailable Unavailable WINNIE, A KENRICK PA Unavailable Unavailable WINNIE, A KENRICK PA Unavailable Unavailable WINNIE, A KENRICK PA Unavailable Unavailable WINNIE, A KENRICK PA Unavailable Unavailable WINNIE, A KENRICK PA Unavailable Unavailable WADE KELLEY MD Unavailable Unavailable WADE KELLEY MD Unavailable Unavailable WADE KELLEY MD Unavailable Unavailable WADE KELLEY MD Unavailable Unavailable WADE KELLEY MD Unavailable Unavailable WADE KELLEY MD Unavailable Unavailable WADE KELLEY MD Unavailable Unavailable WADE KELLEY MD Unavailable Unavailable WADE KELLEY MD Unavailable Unavailable WADE KELLEY MD Unavailable Unavailable WADE KELLEY MD Unavailable Unavailable WADE KELLEY MD Unavailable Unavailable AWDE KELLEY MD Unavailable Unavailable WADE KELLEY MD Unavailable Unavailable WADE KELLEY MD Unavailable Unavailable WADE KELLEY MD Unavailable Unavailable WADE KELLEY MD Unavailable Unavailable WADE KELLEY MD Unavailable Unavailable WADE KELLEY MD Unavailable Unavailable WADE KELLEY MD Unavailable Unavailable WADE KELLEY MD Unavailable Unavailable WADE KELLEY MD Unavailable Unavailable WADE KELLEY MD Unavailable Unavailable WADE KELLEY MD Unavailable Unavailable WADE KELLEY MD Unavailable Unavailable Dawn, R Leeroy PA Unavailable Dawn, R Leeroy PA Unavailable Dawn, R Leeroy PA Unavailable Dawn, R Leeroy PA Unavailable Dawn, R Leeroy PA Unavailable Dawn, R Leeroy PA Unavailable Dawn, R Leeroy PA Unavailable Dawn, R Leeroy PA Unavailable Dawn, R Leeroy PA Unavailable Dawn, R Leeroy PA Unavailable Dawn, R Leeroy PA Unavailable ALFREDMartita MD Unavailable Unavailable ALFRED, Martita YBARRA MD Unavailable Unavailable ALFRED, Martita YBARRA MD Unavailable Unavailable ALFRED, Martita YBARRA MD Unavailable Unavailable ALFRED, Martita YBARRA MD Unavailable Unavailable ALFRED, Martita YBARRA MD Unavailable Unavailable ALFRED, Martita YBARRA MD Unavailable Unavailable ALFRED, Martita YBARRA MD Unavailable Unavailable COLLEENBOGDAN MD Unavailable Unavailable COLLEENBOGDAN MD Unavailable Unavailable COLLEEN, BOGDAN SMITH Unavailable Unavailable COLLEEN, BOGDAN SMITH Unavailable Unavailable COLLEEN, BOGDAN SMITH Unavailable Unavailable Feuga, Santiago Unavailable Feuga, Santiago Unavailable Feuga, Santiago Unavailable Feuga, Santiago Unavailable Sohail GROVER MD Unavailable Unavailable ANSHUL STRAUSS MD Unavailable Unavailable ANSHUL STRAUSS MD Unavailable Unavailable ANSHUL STRAUSS MD Unavailable Unavailable ANSHUL STRAUSS MD Unavailable Unavailable ANSHUL STRAUSS MD Unavailable Unavailable ANSHUL STRAUSS MD Unavailable Unavailable NILOOEDUARDO CARTER MD Unavailable Unavailable EDUARDO JERRY MD Unavailable Unavailable NILOOEDUARDO CARTER MD Unavailable Unavailable NILOOBANEDUARDO MD Unavailable Unavailable NILEDUARDO PANDYA MD Unavailable Unavailable NIZARRamiro MD Unavailable Unavailable NIZARamiro Rubio MD Unavailable Unavailable NIZARamiro Rubio MD Unavailable Unavailable NIZARamiro Rubio MD Unavailable Unavailable NIZAR R AYAN SMITH Unavailable Unavailable NIZAR R AYAN SMITH Unavailable Unavailable NIZAR R AYAN SMITH Unavailable Unavailable NIZARamiro R AYAN SMITH Unavailable Unavailable NIZAR R YAAN SMITH Unavailable Unavailable NIZARamiro R AYAN SMITH Unavailable Unavailable NIZARamiro R AYAN MSITH Unavailable Unavailable ALBINZARamiro Rubio MD Unavailable Unavailable ALBINZARamiro Rubio MD Unavailable Unavailable Ramiro DIAMOND MD Unavailable Unavailable Ramiro DIAMOND MD Unavailable Unavailable Raimro DIAMOND MD Unavailable Unavailable Ramiro DIAMOND MD Unavailable Unavailable Ramiro DIAMOND MD Unavailable Unavailable Ramiro DIAMOND MD Unavailable Unavailable Sohail GROVER MD Unavailable Unavailable Sohail GROVER MD Unavailable Unavailable ManDivya baldwin SENIOR COMPUTER SPECIALIST Unavailable Unavailable Cortney, Vish SENIOR COMPUTER SPECIALIST Unavailable Cortney, Vish SENIOR COMPUTER SPECIALIST Unavailable Cortney, Vish SENIOR COMPUTER SPECIALIST Unavailable Mariam HICKS MD Unavailable Unavailable Mariam HICKS MD Unavailable Unavailable Mariam HICKS MD Unavailable Unavailable Mariam HICKS MD Unavailable Unavailable Mariam HICKS MD Unavailable Unavailable Mariam HICKS MD Unavailable Unavailable Mariam HICKS MD Unavailable Unavailable Mariam HICKS MD Unavailable Unavailable Mariam HICKS MD Unavailable Unavailable Mariam HICKS MD Unavailable Unavailable Mariam HICKS MD Unavailable Unavailable Mariam HICKS MD Unavailable Unavailable Mariam HICKS MD Unavailable Unavailable Mariam HICKS MD Unavailable Unavailable Mariam HICKS MD Unavailable Unavailable Mariam HICKS MD Unavailable Unavailable Gonzalo Hameed Unavailable CapogrGonzalo morejon Unavailable CapogrecGonzalo hall Unavailable Capogreco, D Eleroy Unavailable Capogreco, D Leeroy Unavailable Capogreco, D Leeroy Unavailable Capogreco, D Leeroy Unavailable WILLIAM BRO MD Unavailable Unavailable COLBY, BUDDHIST Unavailable Unavailable COLBY, BUDDHIST Unavailable Unavailable BOWMAN, BUDDHIST MD Unavailable Unavailable BOWMAN, BUDDHIST MD Unavailable Unavailable BOWMAN, BUDDHIST MD Unavailable Unavailable BOWMAN, BUDDHIST MD Unavailable Unavailable BOWMAN, BUDDHIST MD Unavailable Unavailable BOWMAN, BUDDHIST MD Unavailable Unavailable Pedro Keith Unavailable Pedro Keith Unavailable Janette Martinez MD Unavailable Unavailable Nicole Grant MD Unavailable Unavailable Rudy K Marky MD Unavailable Unavailable Rudy K Marky MD Unavailable Unavailable Rudy K Marky MD Unavailable Unavailable Rudy K Marky MD Unavailable Unavailable Rudy K Marky MD Unavailable Unavailable Grant K Marky MD Unavailable Unavailable Rudy K Marky MD Unavailable Unavailable Rudy K Marky MD Unavailable Unavailable Rudy K Marky MD Unavailable Unavailable Rudy K Marky MD Unavailable Unavailable Rudy K Marky MD Unavailable Unavailable Grant K Marky MD Unavailable Unavailable Rudy K Marky MD Unavailable Unavailable Rudy K Marky MD Unavailable Unavailable Rudy K Marky MD Unavailable Unavailable Rudy K Marky MD Unavailable Unavailable Nicole Kent PMH-SENIOR COMPUTER SPECIALIST Unavailable Unavailable Nicole Kent Tammie PMH-SENIOR COMPUTER SPECIALIST Unavailable Unavailable Nicole Kent Tammie PMH-SENIOR COMPUTER SPECIALIST Unavailable Unavailable Nicole Kent Tammie PMH-SENIOR COMPUTER SPECIALIST Unavailable Unavailable Nicole Kent PMH-SENIOR COMPUTER SPECIALIST Unavailable Unavailable Nicole Kent Tammie PMH-SENIOR COMPUTER SPECIALIST Unavailable Unavailable Donte, K Tammie PMH-SENIOR COMPUTER SPECIALIST Unavailable Unavailable Nicole Kent Tammie PMH-SENIOR COMPUTER SPECIALIST Unavailable Unavailable Maria De Jesus CABRERA Unavailable Unavailable NILS ARGUETA MD Unavailable Unavailable Ramiro Argueta MD Unavailable Unavailable Ramiro Argueta MD Unavailable Unavailable Ramiro Argueta MD Unavailable Unavailable Ramiro Argueta MD Unavailable Unavailable Ramiro Argueta MD Unavailable Unavailable Ramiro Argueta MD Unavailable Unavailable Ramiro Argueta MD Unavailable Unavailable Ramiro Argueta MD Unavailable Unavailable Ramiro Argueta MD Unavailable Unavailable Ramiro Argueta MD Unavailable Unavailable Gonzalo HAMEED . Unavailable Unavailable Liliam Negron NP Unavailable Unavailable MIO, YOLANDE MD Unavailable Unavailable MIO, YOLANDE MD Unavailable Unavailable MIO, YOLANDE MD Unavailable Unavailable MIO, YOLANDE MD Unavailable Unavailable MIO, YOLANDE MD Unavailable Unavailable MIO, YOLANDE MD Unavailable Unavailable MIO, YOLANDE MD Unavailable Unavailable MIO, YOLANDE MD Unavailable Unavailable MIO, YOLANDE MD Unavailable Unavailable MIO, YOLANDE MD Unavailable Unavailable MIO, YOLANDE MD Unavailable Unavailable MIO, YOLANDE MD Unavailable Unavailable MIO, YOLANDE MD Unavailable Unavailable MIO, YOLANDE MD Unavailable Unavailable MIO, YOLANDE MD Unavailable Unavailable MIO, YOLANDE MD Unavailable Unavailable MIO, YOLANDE MD Unavailable Unavailable MIO, YOLANDE MD Unavailable Unavailable MIO, YOLANDE MD Unavailable Unavailable MIO, YOLANDE MD Unavailable Unavailable MIO, YOLANDE MD Unavailable Unavailable MIO, YOLANDE MD Unavailable Unavailable MIO, YOLANDE MD Unavailable Unavailable MIO, YOLANDE MD Unavailable Unavailable MIO, YOLANDE MD Unavailable Unavailable Sohail Muñoz MD Unavailable Unavailable Sohail Muñoz MD Unavailable Unavailable Sohail Muñoz MD Unavailable Unavailable LULEJIAN, G FORTUNATO DO Unavailable Unavailable LULEJIAN, G FORTUNATO DO Unavailable Unavailable LULEJIAN, G FORTUNATO DO Unavailable Unavailable LULEJIAN, G FORTUNATO DO Unavailable Unavailable LULEJIAN, G FORTUNATO DO Unavailable Unavailable LULEJIAN, G FORTUNATO DO Unavailable Unavailable LULEJIAN, G FORTUNATO DO Unavailable Unavailable LULEJIAN, G FORTUNATO DO Unavailable Unavailable LULEJIAN, G FORTUNATO DO Unavailable Unavailable LULEJIAN, G FORTUNATO DO Unavailable Unavailable LULEJIAN, G FORTUNATO DO Unavailable Unavailable Colby, Anoop Unavailable Unavailable Colby, Anoop Unavailable Unavailable Colby, Anoop Unavailable Unavailable Megna, L Deejay PA-C Unavailable Unavailable Megna, L Deejay PA-C Unavailable Unavailable Megna, L Deejay PA-C Unavailable Unavailable Megna, L Deejay PA-C Unavailable Unavailable Megna, L Deejay PA-C Unavailable Unavailable Megna, L Deejay PA-C Unavailable Unavailable Megna, L Deejay PA-C Unavailable Unavailable Megna, L Deejay PA-C Unavailable Unavailable Megna, L Deejay PA-C Unavailable Unavailable Megna, L Deejay PA-C Unavailable Unavailable Megna, L Deejay PA-C Unavailable Unavailable Macario, F Zaki PA Unavailable Unavailable [place], F Zaki PA Unavailable Unavailable Macario, F Zaki PA Unavailable Unavailable [place], F Zaki PA Unavailable Unavailable Macario, F Zaki PA Unavailable Unavailable [place], F Zaki PA Unavailable Unavailable Macario, F Zaki PA Unavailable Unavailable [place], F Zaki PA Unavailable Unavailable Macario, F Zaki PA Unavailable Unavailable [place], F Zaki PA Unavailable Unavailable ZEGIL, D THERESA ASSOCIATE CHIEF NURSE Unavailable Unavailable ZEGIL, D THERESA ASSOCIATE CHIEF NURSE Unavailable Unavailable ZEGIL, D THERESA ASSOCIATE CHIEF NURSE Unavailable Unavailable AL-Silvio, Ramón MD Unavailable Unavailable AL-Silvio, Ramón MD Unavailable Unavailable AL-Silvio, Ramón MD Unavailable Unavailable AL-Silvio, Ramón MD Unavailable Unavailable AL-Silvio, Ramón MD Unavailable Unavailable AL-Silvio, Ramón MD Unavailable Unavailable AL-Silvio, Ramón MD Unavailable Unavailable RAJASEKARAN, PAKKAM MD Unavailable Unavailable RAJASEKARAN, PAKKAM MD Unavailable Unavailable RAJASEKARAN, PAKKAM MD Unavailable Unavailable RAJASEKARAN, PAKKAM MD Unavailable Unavailable RAJASEKARAN, PAKKAM MD Unavailable Unavailable RAJASEKARAN, PAKKAM MD Unavailable Unavailable RAJASEKARAN, PAKKAM MD Unavailable Unavailable NATALIE, P VELASQUEZ Unavailable Unavailable Janette Martinez MD Unavailable Unavailable Janette Martinez MD Unavailable Unavailable Ramiro Dawn Unavailable Unavailable LAUREEN LUIS Unavailable Unavailable Re-disclosure Warning The records that you are about to access may contain information from federally-assisted alcohol or drug abuse programs. If such information is present, then the following federally mandated warning applies: This information has been disclosed to you from records protected by federal confidentiality rules (42 CFR part 2). The federal rules prohibit you from making any further disclosure of this information unless further disclosure is expressly permitted by the written consent of the person to whom it pertains or as otherwise permitted by 42 CFR part 2. A general authorization for the release of medical or other information is NOT sufficient for this purpose. The Federal rules restrict any use of the information to criminally investigate or prosecute any alcohol or drug abuse patient.The records that you are about to access may contain highly sensitive health information, the redisclosure of which is protected by Article 27-F of the [facility] Public Health law. If you continue you may have access to information: Regarding HIV / AIDS; Provided by facilities licensed or operated by the [facility] Office of Mental Health; or Provided by the [facility] Office for People With Developmental Disabilities. If such information is present, then the following [facility] mandated warning applies: This information has been disclosed to you from confidential records which are protected by state law. State law prohibits you from making any further disclosure of this information without the specific written consent of the person to whom it pertains, or as otherwise permitted by law. Any unauthorized further disclosure in violation of state law may result in a fine or usp sentence or both. A general authorization for the release of medical or other information is NOT sufficient authorization for further disc losure. Allergies and Adverse Reactions Type Description Substance Reaction Status Data Source(s ) Drug allergy Drug allergy risperidone Unknown Reaction [facility] Drug allergy Drug allergy haloperidol (From Haldol) Unknown Reaction [facility] Propensity to adverse reactions to substance Risperdal Risperidone 1 MG Oral Tablet [Risperdal] Active [facility] ([facility]) Drug allergy risperidone risperidone [facility]AL [facility] haloperidol haloperidol AD[facility]AL [facility] SEASONAL ALLERGIES SEASONAL ALLERGIES [facility] ([facility]) No Allergies No Allergies [facility] ([facility]) No allergies to food No allergies to food [facility] ([facility]) NKDA NKDA [facility] ([facility]) Drug allergy haloperidol haloperidol [facility] Family History Family Member Name Family Member Gender Family Member Status Date o f Status Description Data Source(s) Unknown Male Condition Family Member ADD / ADHD S [facility] Encounters Encounter Providers Location Date Indications Data Source(s ) Inpatient Attender: BROOKLYN ONEILL MDAttender: ZEESHAN GROVER MDAdmitter: BROOKLYN ONEILL MD ER-3RD 05/06/2021 02:17:00 PM EDT - 05/08/2021 04:22:00 PM EDT [facility] Patient discharged. Emergency Attender: THERESA MERCHANTP ED-ED 04/12 07:56:00 PM EDT - 05/05/2021 11:21:[address] [facility] suicidal ideation Patient discharged. Inpatient Attender: BOGDAN ALMAGUER MDAtten víctor: DYLAN CABRERAAttender: BROOKLYN ONEILL MDAttender: KYLIE العلي MDAdmitter: BROOKLYN ONEILL MD ER-3RD 05/01/2021 04:51:00 PM EDT - 05/05/2021 11:59:00 AM EDT [facility] Patient discharged. Emergency Attender: Zaki OWENS ED-ED 01:54:00 AM EDT - 05/01/2021 09:45:[address] [facility] PSYCHIATRIC Patient discharged. Emergency Attender: Zaki OWENS ED-ED 11:28:00 PM EDT - 05/01/2021 01:25:[address] [facility] DEPRESSION Patient discharged. Emergency Attender: Angelica Martinez MDAttender: Angelica Martinez MD ED-ED 04/30/2021 07:03:00 PM EDT - 04/30/2021 10:30:00 PM EDT [facility] DEPRESSION Patient discharged. Inpatient Attender: BOGDAN ALMAGUER MDAtten víctor: BROOKLYN ONEILL MDAttender: Ramón Levy MDAdmitter: BROOKLYN ONEILL MD ER-3RD 04/27/20 04:51:00 AM EDT - 04/30/2021 02:30:00 PM EDT [facility] Patient discharged. Inpatient Attender: BROOKLYN ONEILL MDAttender: Ramón Levy MDAdmitter: BROOKLYN ONEILL MD ER-3RD 04/26/2021 02:30:00 AM EDT - 04/26/2021 03:15:00 PM EDT [facility] Patient discharged. Emergency Attender: LAUREEN LUIS ES1-CP2 021 01:05:00 PM EDT - 04/24/2021 04:29:00 PM EDT [facility] Patient discharged. Emergency Attender: Zaki OWENS ED-ED 08:53:00 PM EDT - 04/24/2021 11:08:00 AM EDT SUICIDAL THOUGHTS,ANXIETY [facility] SUICIDAL THOUGHTS,ANXIETY Patient discharged. Emergency Attender: Ramón Levy MD ER-ER 1 10:29:00 PM EDT - 04/21/2021 03:43:00 PM EDT [facility] Patient discharged. Emergency Attender: ZEESHAN GROVER MD ER-ER 03/2021 01:17:00 AM EDT - 04/19/2021 02:55:00 PM EDT [facility] Patient discharged. Emergency Attender: KENRICK ZHOU PAAttender: Zaki OWENS ED-ED 04/17/2021 01:21:00 AM EDT - 04/17/2021 01:48:00 PM EDT CONSUMED CLEANING AGENT [facility] CONSUMED CLEANING AGENT Patient discharged. [facility]billable [facility] 04/14/2021 12:00:00 AM EDT [facility]) Emergency Attender: Nils Argueta MD ER-ER 2020 08:28:00 PM EDT - 04/14/2021 04:43:00 PM EDT [facility] Patient discharged. Emergency Attender: [facility]ERESA BARAHONA [facility] ED-ED 08/2020 03:11:00 AM EDT - 04/13/2021 06:45:00 PM EDT THINKING OF SELF HARM [facility] THINKING OF SELF HARM Patient discharged. Inpatient Attender: BOGDAN ALMAGUER MDAtten víctor: ZEESHAN GROVER MDAdmitter: BOGDAN ALMAGUER MD ER-3RD 04/09/2021 12:50:00 PM EDT - 04/11/2021 10:46:00 AM EDT [facility] Patient discharged. Inpatient Attender: Deejay Pearson PA-cage tender: JOSE HICKS MDAttender: Leeroy Sharpttender: LEEROY HAMEED .Admitter: JOSE HICKS MDReferrer: JOSE HICKS MD [id number] 04/05/2021 12:00:00 AM EDT - 04/07/2021 12:21:00 PM EDT suicidal [facility] suicidal Patient discharged. Emergency Attender: LAUREEN LUIS ES1-CP2 021 11:17:00 PM EDT - 04/04/2021 01:56:00 PM EDT [facility] Patient discharged. Inpatient Attender: BOGDAN ALMAGUER MDAttjef víctor: BROOKLYN ONEILL MDAttender: Nils Argueta MDAdmitter: BROOKLYN ONEILL MD ER-3RD 04/01/2021 0 6:08:00 PM EDT - 04/03/2021 10:22:00 AM EDT [facility] Patient discharged. Emergency Attender: KENRICK ZHOU PAAttender: Zaki OWENS ED-ED 03/27/2021 10:08:00 PM EDT - 03/30/2021 06:15:00 AM EDT SUICIDAL THOUGHTS,ANXIETY [facility] SUICIDAL THOUGHTS,ANXIETY Patient discharged. Emergency Attender: Leeroy RUIZttender: Leeroy OWENS ED-ED 03/25/2021 08:09:00 PM EDT - 03/25/2021 11:25:00 PM EDT MENTAL HEALTH ISSUES [facility] MENTAL HEALTH ISSUES Patient discharged. Inpatient Attender: Velasquez Lemos er: VELASQUEZ KEITHAttender: TARAH BOWMAN MDAdmitter: TARAH BOWMAN MD [id number] 03/21/2021 02:54:00 AM EDT - 03/24/2021 12:21:00 PM EDT [facility] Patient discharged. Psychiatric Diagnostic Evaluation (Non-Medical) [facility] 03/20/2021 01:00:00 AM EDT - 03/20/2021 01:00:00 AM EDT [facility] Emergency Attender: THERESA BARAHONA [facility] ED-ED 03/2021 12:32:00 AM EDT - 03/20/2021 01:00:00 AM EDT MENTAL HEALTH ISSUES [facility] MENTAL HEALTH ISSUES Patient discharged. Attender: Zeyad LaBarge 03/20/2021 12:00:00 AM EDT [facility] Outpatient Attender: Darren Negron SENIOR COMPUTER SPECIALIST 03/17/2021 09:0 7:00 PM EDT Amb Documentation [facility] Amb Documentation Outpatient Attender: Darren Negron NPAdm itter: Divya Orozco NPConsultant: Divya Orozco NP 03/16/2021 09:50:00 PM EDT [facility] In[facility] Attender: Divya Orozco NPAdmitter: Divya gonzales SENIOR COMPUTER SPECIALIST 03/16/2021 09:50:00 PM EDT - 03/19/2021 11:43:00 AM EDT [facility] Patient discharged. Outpatient Attender: Vish Barr NPAd mitter: Divya Orozco NPConsultant: Divya Orozco NP 03/16/2021 09:50:00 PM EDT [facility] Out[facility] Attender: Divya Orozco NPA dmitter: Divya Orozco NPConsultant: Divya Orozco SENIOR COMPUTER SPECIALIST 03/16/2021 09:50:00 PM EDT Suicidal Ideations [facility] Suicidal Ideations Emergency Attender: Anoop Bowman ER-ER 03/16/20 05:07:00 AM EDT - 03/16/2021 07:30:00 PM EDT [facility] Patient discharged. Emergency Attender: Leeroy OEWNS ED-ED 021 11:49:00 PM EDT - 03/16/2021 01:34:00 AM EDT MEDICATION SWITCH FOR MENTAL HEALTH [facility] MEDICATION SWITCH FOR MENTAL HEALTH Patient discharged. IP PSYCH Attender: WADE KELLEY MD Attender: YOLANDE LIEBERMAN MDAttender: Marky Grant MDAdmitter: YOLANDE LIEBERMAN MDConsultant: William Gillonsultant: WILLIAM BRO MD [id number] 03/13/2021 11:02:00 AM EDT - 03/15/2021 01:22:00 PM EDT [facility] Patient discharged. non-billable [facility] 03/12/2021 12:00:00 AM EDT [facility] Emergency Attender: Leeroy Sykesender: KENRICK OWENS ED-ED 03/05/2021 06:28:00 PM EDT - 03/06/2021 01:47:00 PM EDT MENTAL HEALTH ISSUES [facility] MENTAL HEALTH ISSUES Patient discharged. Emergency Attender: Ramirez Muñoz MD ED-ED 03/03/20 12:40:00 AM EDT - 03/03/2021 09:59:[address] [facility] MENTAL HEALTH Patient discharged. Emergency Attender: Nils Argueta MD ER-ER 2020 02:30:00 AM EDT - 03/02/2021 11:27:00 AM EDT [facility] Patient discharged. Emergency Attender: Nisl Argueta MD ER-ER 2020 09:08:00 PM EDT - 03/01/2021 12:39:00 PM EDT [facility] Patient discharged. Outpatient [address] [id number]-Mobile Integration Team 02/27/2021 02:45:00 PM EDT [facility] ([facility]) Patient admitted. Inpatient Attender: AYAN Clifton nder: Velasquez KeithAttender: VELASQUEZ KEITHAdmitter: AYAN DIAMOND MDReferrer: [facility] SYSTEM IN [facility] 02/21/2021 12:14:00 PM EDT - 02/25/2021 11:39:00 AM EDT [facility] Patient discharged. Emergency Attender: Ramón Levy MD ER-ER 0 02/20/2021 10:45:00 PM EDT - 02/21/2021 11:44:00 PM EDT [facility] Patient discharged. Emergency Attender: Ramón Levy MD ER-ER 0 02/19/2021 02:28:00 AM EDT - 02/19/2021 10:15:00 AM EDT [facility] Patient discharged. Emergency Attender: Anoop Bowman ER-ER 02/18/20 03:10:00 AM EDT - 02/17/2021 01:54:00 PM EDT [facility] Patient discharged. Emergency Attender: Santiago RajanAttender: Anoop Hayward R-ER 02/15/2021 08:00:00 PM EDT - 02/16/2021 01:02:00 PM EDT [facility] Patient discharged. Emergency Attender: KENRICK OWENS ED-ED 02/14 09:21:00 PM EDT - 02/14/2021 11:01:00 PM EDT VOMITING,DIARRHEA [facility] VOMITING,DIARRHEA Patient discharged. Inpatient Attender: DYLAN Michelle er: BROOKLYN ONEILL MDAttender: AMADA MCLEAN MDAttender: KYLIE العلي MDAdmitter: AMADA MCLEAN MD ER-3RD 01/03/2021 11:03:00 AM EDT - 02/13/2021 11:40:00 AM EDT [facility] Patient discharged. Outpatient Attender: Tammie Kent [facility] 11/13/2020 09:30:00 AM EDT - 11/13/2020 09:30:00 AM EDT [facility] ([facility]) Attender: Tammie Kent [facility] 11/13/2020 12: 00:00 AM EDT [facility] ([facility]) Inpatient Attender: BROOKLYN ONEILL MDAttender: BOGDAN ALMAGUER MDAttender: KYLIE العلي MDAdmitter: BOGDAN ALMAGUER MD ER-3RD 10/31/2020 0 8:49:00 AM EDT - 01/01/2021 01:05:00 PM EDT [facility] Patient discharged. Outpatient [id number] 10/29/2020 09:35:00 PM EDT [facility] Inpatient Attender: ZEESHAN GROVER MD Attender: BROOKLYN ONEILL MDAttender: ANSHUL STRAUSS MDAdmitter: BROOKLYN ONEILL MD ER-3RD 10:58:00 AM EDT - 10/29/2020 12:50:00 PM EDT [facility] Patient discharged. Extended Individual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 oral tablet 1 tab daily5. prazosin 2 mg Oral cap 1 cap every day at bedtime6. propranolol 10 mg Oral tablet 1 tab 2 times per day7. sertraline 50 mg oral tablet 1 tab daily8. topiramate 75mg oral tablet daily- PMHx: ADHD; ANXIETY; BIPOLAR DISORDER; Depressive disorder; ptsd;- Immunization history: Flu vaccine is not up to date.- Social history: Smoking status: Patient states was never smoker of tobacco.ETOHstatus Denies use of ETOH.- Advance Directives:: None.ROS:06:43 Psych: Positive for suicide gesture. All other systems are negative.brExam:06:44 Psych: Behavior/mood is aggressive, uncooperative, Affect is animated,Oriented to brperson, place, Patient having thoughts of suicide. Megestrol drinking shampooisattempt for prxbnut55:44 Unable to obtain exam due to patient being uncooperative.Vital Signs:00:37 BP 137 / 84; Pulse 84; Resp 16; Temp 97.7; Pulse Ox 99% ; Weight 104.33kg; Height 5 tp2ft. 6 in. ; Pain 0/10;16:31 BP 122 / 83 (auto/); Pulse 77 MON; Resp 18; Pulse Ox 96% ;ef100:37 Body Mass Index 37.12 (104.33 kg, 167.64 cm)tp200:37 Pain Scale: Wydenpv0YDU:00:47 Patient medically screened.br06:44 Data reviewed: vital signs, nurses notes, EMS record, old medicalrecords, lab test brresult(s).11:37 ED course: Patient has refused to comply with staff, is verbally abusiveand sedisruptive, and is being physically restrained at this time. She has mejhjmay02 mg ofIM Geodon and will get 2 mg of IM Ativan..04/2600:38 Order name: Acetaminophen Level; Complete Time: 10:90ie016/2610:32 Interpretation: Within normal limits.se04/2600:38 Order name: CBC with diff; Complete Time: 10:74mi550/2610:32 Interpretation: Within normal limits.se04/2600:38 Order name: CMP; Complete Time: 10:43gk962/2610:33 Interpretation: Normal except: TP 8.0; ALTI 58.se04/2600:38 Order name: COVID-19 PROFILE+LAB; Complete Time: 10:96su890/2610:33 Interpretation: Within normal limits.se04/2600:38 Order name: ETOH; Complete Time: 10:33hv960/2610:33 Interpretation: Within normal limits.se04/2600:38 Order name: Wljtgxmlu749/2600:38 Order name: Salicylate Level; Complete Time: 10:08dq496/2610:33 Interpretation: Within normal limits.se04/2600:38 Order name: Triage - Drug Screen; Complete Time: 10:45hg815/2610:33 Interpretation: Normal except: BENZODIAZEPINES POS.se04/2600:38 Order name: UA; Complete Time: 10:77le123/2610:33 Interpretation: Within normal limits.:38 Order name: Urine HCG Qualitative; Complete Time: 10:97gi041/2610:33 Interpretation: Within normal limits.se04/2600:38 Order name: Diet - Mental Health Tray (call dietary); Complete Time:00:42 tp0:38 Order name: Belongings List; Complete Time: 13:57oy5850:38 Order name: Document Weight and Height for BMI; Complete Time: 00:22hz639:38 Order name: Mental Health Evaluation; Complete Time: 13::38 Order name: Mental Health Level 3; Complete Time: 13::38 Order name: VS q shift; Complete Time: 00:18ru3Uupzvwmrv Medications:09:23 Drug: Ondansetron 8 mg Route: PO;jl11:41 Fol low up: Response: Nausea is ijaerlyfrur981:29 Drug: Geodon 20 mg Route: IM; Site: left deltoid;ef113:48 Follow up: Response: Anxiety vyvlcddwlhz819:38 Drug: LORazepam 2 mg Route: IM; Site: right vastus lateralis;ef113:48 Follow up: Response: Anxiety relyrdrmucz4Dxsnnjoxzf:Dispatcher [employer] Kylie Fishman MD MD seHilborne, Erica, RN RN uc1OaAhtwiBertha Collier RN RN jlPutney, Taylor, RN RN uo7AyfsyutZeeshan browne MD MD br Name Value Range Interpretation Code Description Data Stephanie rce(s) Supporting Document(s) ID Date Data Source [id number] 05/06/2021 04:51:00 PM EDT [facility] [place] Nurse's NotesClaxton-Oron[facility] Medical Tootie terName: Yareli DuvallAge: 20 yrsSex: FemaleDOB: 2000MRN: [id number] Date: 05/06/2021Time: 00:32Account#: [id number] MD:Diagnosis: Major depressive disorder, recurrent, unspecified;Borderlinepersonality disorderPresentation:04/2600:34 Presenting complaint: Patient states: discharged from mental health floor05/05/21. zz2Whduh a bottle of shampoo. Went to [facility], [facility], police brought umesh. Ptstates she was not comfortable w/ her discharge from our MHU, she states shedidn'tfeel safe going home and isnt sure why she was discharged because she was stillactively suicidal. She states she was supposed stick w/ Dr Almaguer as her providerbutthey switched it to someone else. International Travel Fever No. CoronavirusScreening:Have you been diagnosed with COVID-19 in the past 30 days? no Are you currentlyonquarantine by Public Health? no Flu-like symptoms reported in the last 14 days:no.Have you had close contact with confirmed or suspected COVID-19 case? no Do youlive kaley setting where a large of amount of people live, such as residential, familycare,usp, etc? no. Have you traveled to a location with widespread or ongoingCOVID-19community spread or outside of [facility]? no Have you traveled internationallyor hadcontact with someone that has traveled and has been ill in the past 3 weeks? noHaveyou received the COVID vaccine? No. Communicable Disease Screen: Negative forfever>/=100 degrees Fahrenheit. Communicable disease screen is negative. CommunicationSpeaksEnglish? Yes, is preferred language.00:34 Acuity: Triage 8sa617:34 Acuity Assignment: Triage 3ey100:34 Method Of Arrival: Gapklzrn8Yhiyod Assessment:00:36 General: Appears in no apparent distress, Behavior is appropri ate forage, cooperative. ry4Ymeqkd Screening: (1)Signs/symptoms infection No. Pain: Denies pain. PSS-3 NowI'mgoing to ask you some questions that we ask everyone treated here, no matterwhatproblem they are here for. It is part of the hospital's policy and it helps usto makesure we are not missing anything important. Over the past 2 weeks, have youfelt down,depressed, or hopeless? Yes. Exhibiting depressed mood. Positive screen fordepression,MD provider aware of positive screening. Education provided. Over the past 2weeks,have had thoughts of killing yourself? Yes, with current ideation. ActiveSuicidalIdeation (SI). Positive screen for suicide risk. MD provider aware of positivescreening, suicide precautions implemented. ESS-6 ordered. In your lifetime,have youever attempted to kill yourself? Yes, Within the past 24 hours (includingtoday).Exhibits Lifetime Suicide Attempt (SA). Positive screen for suicide risk. MDprovideraware of positive screening, suicide precautions implemented. ESS-6 ordered.Derm: Skinis intact, Skin is pink, warm & dry. Neuro: Level of Consciousness is awake,alert,Oriented to person, place, time. Respiratory: Airway is patent Trachea midlineRespiratory effort is even, unlabored, Respiratory pattern is regular,symmetrical. GI:Denies diarrhea, nausea, vomiting.Historical:- Allergies: Haldol; Risperdal;- Home Meds:1. aripiprazole 400 mg intramuscular suspension,extended release syringe 400 fouxktb70 days2. ibuprofen 400 mg Oral tablet 1 tab every 6 hours as needed3. loratadine 10 mg oral tablet 1 tab daily4. montelukast 10 mg oral tablet 1 tab daily5. prazosin 2 mg Oral cap 1 cap every day at bedtime6. propranolol 10 mg Oral tablet 1 tab 2 times per day7. sertraline 50 mg oral tablet 1 tab daily8. topiramate 75mg oral tablet daily- PMHx: ADHD; ANXIETY; BIPOLAR DISORDER; Depressive disorder; ptsd;- Immunization history: Flu vaccine is not up to date.- Social history: Smoking status: Patient states was never smoker of tobacco.ETOHstatus Denies use of ETOH.- Advance Directives:: None.Screenin:42 Abuse screen: Denies threats or abuse. Denies injuries from another.Nutritional um4gzfwokxnu: No deficits noted. Offer of HIV testing: patient was previouslyofferedscreening. Fall Risk None identified.Assessment:00:42 Reassessment: No changes from previously documented assessment.tp211:05 General: pt repeatedly walking out of unit to doorway. does not walk outand easily klpredirected back in. PSA aware.11:29 Reassessment: attempted to elope; uncooperative and attempting to assaultstaff; code bl2cagodp called.11:39 Reassessment: screaming continuing to assault staff; placed in restrains.ef112:30 Reassessment: Patient states feeling better. Patient states symptoms haveimproved. klpreleased from restraints and walked to without incident.13:47 Reassessment: Patient appears in no apparent distress at this time.gv6Yzfqicluzsey:09:59 SAFE Act Report Not Completed. Intervention: Observation Level 3. Mentalhealth consult nhis initiated at 09:59.10:46 Referral Information: Evaluation referral is generated by a policeagency: [facility]. The patient was referred for evaluation because Pt states she drank abottle ofshampoo last night and that she was [facility] where she elopedand wasbrought here on a pickup order.11:02 Subjective: The patients chief complaint is Pt presents to the ED withState Police on ila pickup order due to the [facility], pt states she currently lives at [facility] and does not know if they will accept her back there. Pt states her"maybe"not being let back there is stressing her out. Pt admits at 1845 PM last nightshedrank a regular bottle of shampoo and conditioner (V05 Brand). Pt states shedrank someof each and washed it down with water. Pt states she didn't feel good and thathermouth was burning after she drank both the shampoo and conditioner. Pt statesshe didit as both an impulse and to kill herself. Pt states she was transported [facility] where she eloped three times. Pt states on the third time, [facility] and [place] to her apartment where the State Police had a pickup [facility]. Pt states she willingly went withpolice.Pt states she can not confirm or deny if she is having thoughts of self harm atthistime. Pt admits to SI, but is scared to admit to it fully because she does notwant era placed on a 1:1 on the mental health unit. Pt denies HI. Pt denieshallucinations.Pt she has not been sleeping well the last fe w days. Pt reports a history ofinpatienttreatment, last 04/2021. Pt states [facility] [place] [facility] and has herfirstintake appointment with them on Wednesday (05/09). Pt denies legal issues. Ptdeniesaccess to guns. Delusions are denied, Hallucinations are denied. Patient's moodisdepressed, Having thoughts of suicide. Denies suicidal plan.11:49 Patient reports history of anxiety, Bipolar Disorder, Depression, panicattacks, nhpost-traumatic stress disorder, self -mutilation, sleep disturbance, suicideattempt:Overdose in February 2020 Mental Health Admissions: multiple admissions, jasqIFWM49/2021 Current Outpatient Mental Health Services: Therapist / Agency:[facility]. Living Environment: Family / Home Support: Fair The patientcurrentlylives in a [facility] residence. The patient is single. Detox / Rehab Admissions:None.Current Outpt Alcohol or Substance Abuse Services: None.11:56 Patient presents to E mergency Department with the following symptomswithin the past 2 nhweeks: depressed mood, poor impulse control, suicidal ideation with attempt bydrinkingshampoo and conditioner. Objective: Patient is cooperative, Speech is normal.Affect isappropriate. Mental status exam: Patients appearance is unkempt, Patient'sbehavior isnormal, Speech is normal. Affect is appropriate. Mood is depressed. Perceptionisnormal. Appetite is normal. Memory is fair. Energy level is normal. Content ofthoughtis normal. Thought Process is intact. Cognitive level is Oriented toperson,place andtime. Insight / Judgment is poor. Rapport with interviewer is good. SuicidalIdeation:Vague. Homicidal Ideation: Denies.11:58 Narrative Pt was agitated with ED staff by screaming at them, andthreatening to elope il(which the pt did a few times prior). Pt was brought to an ED room where shecontinuedto be aggressive towards staff. Vanesa Ramos was called at approximately 1122AM. Pt wasoffered medication to calm down, the pt took the medication willingly. Pt thentook thedrapes in the ED room and started wrapping them around her neck. Pt alsowrapped otheritems around her neck (blankets). All other items were removed at this time. Ptbcecelia yell at staff again, even with much redirection from staff. Pt attempted toescapeher room. Pt went into restraints at this time. Pt received more medication tocalmdown. Staff tried reassuring her but she stated "I want to , just let medie. Ishould of jumped off the bridge when I eloped [facility]." Pt isstill inrestraints and calmed down at this time. Pt is being monitored by staff andvitals arebeing taken every 15 minutes.15:39 Notification to family of patient status is not currently needed orappropriate. nhConsultation: Psych MD informed of patient's status at 13:10, ED MD notified ofpatients status at 13:30, Mental Health CLINICAL EDUCATION ASSISTANT made aware of pt status at 13:15.Disposition: Medically cleared for disposition by Dr العلي. PsychiatricConsult isperformed by phone with Dr Oneill The patient is admitted to [facility].LegalStatus: Patient's legal status will be Emergency: 9.39. Commitment papers arecompleted. Pt has been provided with their legal status and rights. DSM-V DXAxis Idiagnosis: Major Depressive D/O [place] II diagnosis: Deferred [place] III diagnosis:None.[place] IV diagnosis: poor coping skills/poor impulse control. InsurancePre-Certification: Not Required. [facility] Admission Criteria: The patient has had asuicideattempt in the recent past. drinking shampoo and conditioner. The patient isexperiencing suicidal ideation. The patient requires continuous o bservationand/orcontrol to protect self, others or property. The patient's care requires amulti-modaltreatment plan under close supervision and coordination due to the complexityandseverity of the patient's symptoms. The patient requires administration andmonitoringof psychoactive medications by skilled medical providers due to the sideeffects of thepsychoactive medications or significant dosage adjustments. Transition of careto Ptwill be transported to [facility] with PSA and [facility].16:22 [place] Suicide Severity Rating Scale: Suicidal Ideation Rating 5;Intensity of oh3Iddgsgiof Rating 25; Suicidal Behavior Rating 0.Psych:00:37 Subjective: Patient's mood is sad, Delusions are denied, Hallucinationsare denied wf0Hhdzcq thoughts of suicide. Denies suicidal plan. Objective: Patient iscooperative,Speech is normal, Affect is flat. Interventions: Removed personal items andplaced inbag. Patient placed in hospital gown. Searched person for dangerous items.Urinecollected and sent for urine drug test. Belonging list filled out. ObservationLevelLevel 3 Sitter needed. Provider notified. Zeeshan Grover Charge nursenotified. Jovana Level 3 order placed.Vital Signs:00:37 BP 137 / 84; Pulse 84; Resp 16; Temp 97.7; Pulse Ox 99% ; Weight 104.33kg; Height 5 tp2ft. 6 in. ; Pain 0/10;16:31 BP 122 / 83 (auto/); Pulse 77 MON; Resp 18; Pulse Ox 96% ;ef100:37 Body Mass Index 37.12 (104.33 kg, 167.64 cm)tp200:37 Pain Scale: Xdtzchl1DI Course:00:33 Patient arrived in ED.tp200:34 Triage completed.tp200:42 Patient has correct armband on for positive identification. Placed ingown. Bed in low cj6okirbivc. Call light in reach. Sitter at bedside.00:42 No Physician assisted procedures completed.tp200:46 Zeeshan Grover MD is Attending Physician.br00:47 Breonna Marie RN is Primary Nurse.tp210:32 Attending Physician role handed off by Zeeshan Grover MDse10:32 Kylie العلي MD is Attending Physician.se13:47 Appears to be sleeping.ef113:57 Brooklyn Oneill MD is Hospitalizing Provider.seAdministered Medications:09:23 Drug: Ondansetron 8 mg Route: PO;jl11:41 Follow up: Response: Nausea is tumqlwjzldt868:29 Drug: Geodon 20 mg Route: IM; Site: left deltoid;ef113:48 Follow up: Response: Anxiety lskcbhkoubt996:38 Drug: LORazepam 2 mg Route: IM; Site: right vastus lateralis;ef113:48 Follow up: Response: Anxiety oqloyunojjv3Jkuqjrj:13:58 Decision to Hospitalize by Provider.se16:09 Disposition: Admitted to Mkdxrma287:09 Condition: stable, Provider notified of abnormal vital signs.16:09 Discharge instructions given to patient, Instructed on need for admit,Demonstratedunderstanding of instructions.16:09 Discharge Assessment: Patient verbalized understanding of dispositioninstructions.Patient has no functional deficits.16:51 Patient left the ED.ao2Dxxkbzzbcw:Елена Hugo, Kylie Sands RN, MD MD seHilborne, Erica RN JOSE LUIS wp3VuSqilsBertha Collier RN RN jlPutney, Taylor, RN RN tp2RZeeshan browne MD MD brHolmes, Marianna Brown, Pearl wa7Lhtctuwpsic: (The following items were deleted from the chart)00:49 00:34 Presenting complaint: Patient states: discharged from [facility] tp21. Drank a bottle of shampoo. Went to [facility]. tp211:05 10:46 Referral Information: Evaluation referral is generated by a policeagency: [facility]. The patient was referred for evaluation because Pt states she drank abottle ofshampoo last night and that [facility] where she elopedand wasbrought here on a pickup order nh11:48 11:02 Subjective: The patients chief complaint is Pt presents to the EDwith [facility] on a pickup order due to the pt drinking a bottle of shampoo and [facility]. During MHE, pt states she currently lives at [facility] in [place] and does not know if they will accept her back there. Ptstatesher "maybe" not being let back there is stressing her out. Pt admits at 1845 PMlastnight she drank a regular bottle of shampoo and conditioner. nh11:56 11:02 Subjective: The patients chief complaint is Pt presents to the EDwith [facility] on a pickup order due to the pt drinking a bottle of shampoo and [facility] [facility]. During MHE, pt states she currently lives at [facility] in [place] and does not know if they will accept her back there. Ptstatesher "maybe" not being let back there is stressing her out. Pt admits at 1845 PMlastnight she drank a regular bottle of shampoo and conditioner (V05 Brand). Ptstates shedrank some of each and washed it down with water. Pt states she didn't feelgood andthat her mouth was burning after she drank both the shampoo and conditioner. Ptstatesshe did it as both an impulse and to kill herself. Pt [facility] she [facility] times. Pt states on the third time,sheeloped back to [facility] and made it to her apartment where the [facility] Police had apickuporder to bring the pt to [facility] for a psych evaluation. Pt states shewillingly went with police. Pt states she can not confirm or deny if she ishavingthoughts of self harm at this time. Pt admits to SI, but is scared to admit toit fullybecause she does not want to be placed on a 1:1 on the mental health unit. PtdeniesHI. Pt denies hallucinations. Pt has a . nh Name Value Range Interpretation Code Description Data Stephanie rce(s) Supporting Document(s) ID Date Data Source [id number] 05/05/2021 10:14:[address] [facility] Name Value Range Interpretation Code Description Data Stephanie rce(s) Supporting Document(s) Ethanol Less than 10.0 Normal (applies to non-numeric r esults) [facility] ID Date Data Source [id number] 05/05/2021 09:47:[address] [facility] Name Value Range Interpretation Code Description Data Stephanie rce(s) Supporting Document(s) White Blood Count 3.5-10.5 Normal (applies to non-numeri c results) [facility] Red Blood Count 3.90-5.00 Normal (applies to non-numeric results) [facility] Hemoglobin 12.0-15.5 Normal (applies to non-numeric resul ts) [facility] Hematocrit 34.9-44.5 Normal (applies to non-numeric resul ts) [facility] Mean Corpuscular Volume 81.2-95.1 Normal (applies to non- numeric results) [facility] Mean Corpuscular Hgb 25.6-32.2 Normal (applies to non-num deena results) [facility] Mean Corpuscular Hgb Conc 32.0-36.0 Normal (applies to no n-numeric results) [facility] Red Cell Distribution Width 11.9-15.5 Normal (appli es to non-numeric results) [facility] Platelet Count 271 x10 3/uL 150-450 Normal (applies to non-numeric results) [facility] Mean Platelet Volume 9.4-12.4 Normal (applies to non-num deena results) [facility] Neutrophils% (Auto) 31.0-71.0 Normal (applies to non-nume frank results) [facility] Lymphocytes% (Auto) 20.0-55.0 Normal (applies to non-nume frank results) [facility] Monocytes% (Auto) 4.0-12.0 Normal (applies to non-numeri c results) [facility] Eosinophils% (Auto) 1.0-8.0 Below low normal [facility] Basophils% (Auto) 0.0-2.0 Normal (applies to non-numeri c results) [facility] Immature Granulocytes% (Auto) 0.0-2.0 Normal (alexander lies to non-numeric results) [facility] Neutrophils# (Auto) 1.50-6.20 Normal (applies to non-nume frank results) [facility] Lymphocytes# (Auto) 1.20-4.00 Normal (applies to non-nume frank results) [facility] Monocytes# (Auto) 0.00-0.90 Normal (applies to non-numeri c results) [facility] Eosinophils# (Auto) 0.00-0.50 Normal (applies to non-nume frank results) [facility] Basophils# (Auto) 0.00-0.20 Normal (applies to non-numeri c results) [facility] Immature Granulocytes# (Auto) 0.00-7.00 No rmal (applies to non-numeric results) [facility] ID Date Data Source [id number] 05/05/2021 10:17:[address] [facility] Name Value Range Interpretation Code Description Data Stephanie rce(s) Supporting Document(s) Sodium 138 mmol/L 136-145 Normal (applies to non-numeric resul ts) [facility] Potassium 3.5-5.1 Normal (applies to non-numeric resul ts) [facility] Chloride 102 mmol/L 98-107 Normal (applies to non-numeric resul ts) [facility] Carbon Dioxide CO2 21-32 Normal (applies to non-numer ic results) [facility] Anion Gap 5.0-16.0 Normal (applies to non-numeric resul ts) [facility] BUN 14 mg/dL 7-18 Normal (applies to non-numeric results) [facility] Creatinine,Serum 0.7-1.2 Normal (applies to non-numeric results) [facility] GFR >60 Normal (applies to non-numeric results) [facility] Glucose Level 97 mg/dL 60-99 Normal (applies to non-numeric re sults) [facility] Reference range is only applicable when patient is fasting Note the following drug interference: Sulfasalazine Sulfapyridine Can see falsely depressed Can see falsely elevated result with up to 17% results with up to 11% decrease in measurement increase in measurement Recommend patients be collected for this test prior to administration of either drug. Calcium 8.5-10.1 Normal (applies to non-numeric resul ts) [facility] Bilirubin,Total 0.1-1.9 Normal (applies to non-numeric results) [facility] SGOT(AST) 32 U/L 15-37 Normal (applies to non-numeric resul ts) [facility] Note the following drug interference: Sulfasalazine Sulfapyridine Can see falsely depressed Can see falsely elevated result with up to 10% results with up to 10% decrease in measurement increase in measurement Recommend patients be collected for this test prior to administration of either drug. SGPT(ALT) 62 U/L 12-78 Normal (applies to non-numeric resul ts) [facility] Note the following drug interference: Sulfasalazine Sulfapyridine Can see falsely depressed Can see falsely elevated result with up to 29% results with up to 10% decrease in measurement increase in measurement Recommend patients be collected for this test prior to administration of either drug. Alkaline Phosphatase 108 U/L 38-126 Normal (applies to non-num deena results) [facility] can increase Alkaline Phosp le vels up to 2 times the normal adult value. Normal values for children and adolescents are 2 to 3 times the normal adult value. Total Protein 6.0-8.2 Normal (applies to non-numeric re sults) [facility] Albumin Level 3.4-5.0 Normal (applies to non-numeric re sults) [facility] ID Date Data Source [id number] 05/05/2021 10:17:[address] [facility] Name Value Range Interpretation Code Description Data Stephanie rce(s) Supporting Document(s) Troponin I 0.000-0.056 Normal (applies to non-numeric resu lts) [facility] ID Date Data Source [id number] 05/05/2021 10:17:[address] [facility] Name Value Range Interpretation Code Description Data Stephanie rce(s) Supporting Document(s) Magnesium 1.8-2.4 Normal (applies to non-numeric resul ts) [facility] ID Date Data Source [id number] 05/05/2021 10:17:[address] [facility] Name Value Range Interpretation Code Description Data Stephanie rce(s) Supporting Document(s) Salicylate 2.8-20.0 Below low normal [facility] ID Date Data Source [id number] 05/05/2021 10:17:[address] [facility] Name Value Range Interpretation Code Description Data Stephanie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 syndrome coronavirus 2 (SARS-CoV-2) RNA Negative (qualifier value) [facility] This lab was ordered by [facility] and reported by . ID Date Data Source [id number] 04/23/2021 11:18:[address] [facility] Name Value Range Interpretation Code Description Data Stephanie rce(s) Supporting Document(s) SARS-CoV-2 RNA Negative Normal (applies to non-numeric r esults) [facility] Negative results should be treated as pr esumptive and, if inconsistent with clinical signs and symptoms or necessary for patient management, should be tested with different authorized or cleared molecular tests. Negative results do not preclude SARS-CoV-2 infection and should not be used as the sole basis for patient management decisions. Negative results should be considered in the context of a patient???s recent exposures, history and the presence of clinical signs and symptoms consistent with COVID-19. This test has not been FDA cleared or approved; this test has been authorized by FDA under an Emergency Use Authorization for use by laboratories certified under the Clinical Laboratory Improvement Amendments of 1988 (CLIA), 42 U.S.C. ???263a, to perform moderate complexity/high complexity tests and at the Point of Care (POC), i.e., in patient care settings operating under a CLIA Certificate of Waiver, Certificate of Compliance, or Certificate of Accreditation. Factsheets for healthcare providers: https://www.fda.gov/media/967744/download Factsheets for patients: https://www.fda.gov/media/650560/download The ID NOW Instrument is a rapid molecular in vitro diagnostic test utilizing an isothermal nucleic acid amplification technology intended for the qualitative detection of nucleic acid from the SARS-CoV-2 viral RNA. THIS IS A STATE REPORTABLE COMMUNICABLE DISEASE. Manual entry verified by Megan Murphy 04/23/21 1920 ID Date Data Source [id number] 04/23/2021 10:16:[address] [facility] Name Value Range Interpretation Code Description Data Stephanie rce(s) Supporting Document(s) Troponin I 0.000-0.056 Normal (applies to non-numeric resu lts) [facility] ID Date Data Source [id number] 04/23/2021 10:16:[address] [facility] Name Value Range Interpretation Code Description Data Stephanie rce(s) Supporting Document(s) Sodium 141 mmol/L 136-145 Normal (applies to non-numeric resul ts) [facility] Potassium 3.5-5.1 Normal (applies to non-numeric resul ts) [facility] Chloride 106 mmol/L 98-107 Normal (applies to non-numeric resul ts) [facility] Carbon Dioxide CO2 21-32 Normal (applies to non-numer ic results) [facility] Anion Gap 5.0-16.0 Normal (applies to non-numeric resul ts) [facility] BUN 18 mg/dL 7-18 Normal (applies to non-numeric results) [facility] Creatinine,Serum 0.7-1.2 Normal (applies to non-numeric results) [facility] GFR >60 Normal (applies to non-numeric results) [facility] Glucose Level 108 mg/dL 60-99 Above high normal [facility] Reference range is only applicable when patient is fasting Note the following drug interference: Sulfasalazine Sulfapyridine Can see falsely depressed Can see falsely elevated result with up to 17% results with up to 11% decrease in measurement increase in measurement Recommend patients be collected for this test prior to administration of either drug. Calcium 8.5-10.1 Normal (applies to non-numeric resul ts) [facility] Bilirubin,Total 0.1-1.9 Normal (applies to non-numeric results) [facility] SGOT(AST) 34 U/L 15-37 Normal (applies to non-numeric resul ts) [facility] Note the following drug interference: Sulfasalazine Sulfapyridine Can see falsely depressed Can see falsely elevated result with up to 10% results with up to 10% decrease in measurement increase in measurement Recommend patients be collected for this test prior to administration of either drug. SGPT(ALT) 57 U/L 12-78 Normal (applies to non-numeric resul ts) [facility] Note the following drug interference: Sulfasalazine Sulfapyridine Can see falsely depressed Can see falsely elevated result with up to 29% results with up to 10% decrease in measurement increase in measurement Recommend patients be collected for this test prior to administration of either drug. Alkaline Phosphatase 125 U/L 38-126 Normal (applies to non-num deena results) [facility] can increase Alkaline Phosp le vels up to 2 times the normal adult value. Normal values for children and adolescents are 2 to 3 times the normal adult value. Total Protein 6.0-8.2 Normal (applies to non-numeric re sults) [facility] Albumin Level 3.4-5.0 Normal (applies to non-numeric re sults) [facility] ID Date Data Source [id number] 04/23/2021 10:16:[address] [facility] Name Value Range Interpretation Code Description Data Stephanie rce(s) Supporting Document(s) Magnesium 1.8-2.4 Normal (applies to non-numeric resul ts) [facility] ID Date Data Source [id number] 04/23/2021 10:16:00 PM [facility] Name Value Range Interpretation Code Description Data Stephanie rce(s) Supporting Document(s) Salicylate 2.8-20.0 Below low normal [facility] ID Date Data Source [id number] 04/23/2021 10:16:00 PM [facility] Name Value Range Interpretation Code Description Data Stephanie rce(s) Supporting Document(s) Acetaminophen 10.0-30.0 Below low normal [facility] ID Date Data Source [id number] 04/23/2021 10:13:00 PM [facility] Name Value Range Interpretation Code Description Data Stephanie rce(s) Supporting Document(s) Ethanol Less than 10.0 Normal (applies to non-numeric r esults) [facility] ID Date Data Source [id number] 04/23/2021 09:42:[address] [facility] Name Value Range Interpretation Code Description Data Stephanie rce(s) Supporting Document(s) White Blood Count 3.5-10.5 Normal (applies to non-numeri c results) [facility] Red Blood Count 3.90-5.00 Normal (applies to non-numeric results) [facility] Hemoglobin 12.0-15.5 Normal (applies to non-numeric resul ts) [facility] Hematocrit 34.9-44.5 Normal (applies to non-numeric resul ts) [facility] Mean Corpuscular Volume 81.2-95.1 Normal (applies to non- numeric results) [facility] Mean Corpuscular Hgb 25.6-32.2 Normal (applies to non-num deena results) [facility] Mean Corpuscular Hgb Conc 32.0-36.0 Normal (applies to no n-numeric results) [facility] Red Cell Distribution Width 11.9-15.5 Normal (appli es to non-numeric results) [facility] Platelet Count 288 x10 3/uL 150-450 Normal (applies to non-numeric results) [facility] Mean Platelet Volume 9.4-12.4 Normal (applies to non-num deena results) [facility] Neutrophils% (Auto) 31.0-71.0 Normal (applies to non-nume frank results) [facility] Lymphocytes% (Auto) 20.0-55.0 Normal (applies to non-nume frank results) [facility] Monocytes% (Auto) 4.0-12.0 Normal (applies to non-numeri c results) [facility] Eosinophils% (Auto) 1.0-8.0 Normal (applies to non-nume frank results) [facility] Basophils% (Auto) 0.0-2.0 Normal (applies to non-numeri c results) [facility] Immature Granulocytes% (Auto) 0.0-2.0 Normal (alexander lies to non-numeric results) [facility] Neutrophils# (Auto) 1.50-6.20 Normal (applies to non-nume frank results) [facility] Lymphocytes# (Auto) 1.20-4.00 Normal (applies to non-nume frank results) [facility] Monocytes# (Auto) 0.00-0.90 Normal (applies to non-numeri c results) [facility] Eosinophils# (Auto) 0.00-0.50 Normal (applies to non-nume frank results) [facility] Basophils# (Auto) 0.00-0.20 Normal (applies to non-numeri c results) [facility] Immature Granulocytes# (Auto) 0.00-7.00 No rmal (applies to non-numeric results) [facility] ID Date Data Source [id number] 04/23/2021 09:58:[address] [facility] Name Value Range Interpretation Code Description Data Stephanie rce(s) Supporting Document(s) UDS Benzodiazepines Screen Negative Normal (applies to n on-numeric results) [facility] UDS Cocaine Screen Negative Normal (applies to non-numer ic results) [facility] UDS Ampetamine Screen Negative Normal (applies to non-nu meric results) [facility] UDS Cannabinoids Screen Negative Normal (applies to non- numeric results) [facility] UDS Opiates Screen Negative Normal (applies to non-numer ic results) [facility] UDS Barbiturates Screen Negative Normal (applies to non- numeric results) [facility] Threshold Levels Benzodiazepine 200 ng/mL Cocaine 300 ng/mL Amphetamines 1000 ng/mL Cannabinoids (THC) 50 ng/mL Opiates 300 ng/mL Barbiturates 200 ng/mL All positive findings are presumptive and unconfirmed. Confirmation of positive results are performed only at request of provider. Unconfirmed results must not be used for non-medical purposes (i.e. preemployment and legal purposes) ID Date Data Source [id number] 04/23/2021 09:52:[address] [facility] Collected By: Nurse Initials: LAKIA Time Collected: 2115 Collected By: Nurse Initials: JT Time Collected: 2115 Collected By: Nurse Initials: JT Time Collected: 2115 Name Value Range Interpretation Code Description Data [facility] rce(s) Supporting Document(s) Color,Urine Colorl-Dk Y Normal (applies to non-numeric res ults) [facility] Clarity,Urine Clear Normal (applies to non-numeric re sults) [facility] Specific [place],Urine 1.005-1.030 Normal (applies to non- numeric results) [facility] pH,Urine 5.0-8.0 Normal (applies to non-numeric resul ts) [facility] Protein,Urine Negative [facility] Glucose,Urine Negative Normal (applies to non-numeric re sults) [facility] Ketones,Urine Negative Normal (applies to non-numeric re sults) [facility] Blood,Urine Negative [facility] l Bilirubin,Urine Negative Normal (applies to non-numeric results) [facility] Urobilinogen,Urine 0.2-1.0 Normal (applies to non-numer ic results) [facility] Leukocyte Esterase,Urine Negative Normal (applies to non -numeric results) [facility] Nitrite,Urine Negative Normal (applies to non-numeric re sults) [facility] ID Date Data Source [id number] 04/23/2021 09:52:[address] [facility] Collected By: Nurse Initials: JT Time Collected: 2115 Collected By: Nurse Initials: JT Time Collected: 2115 Collected By: Nurse Initials: JT Time Collected: 2115 Name Value Range Interpretation Code Description Data [facility] rce(s) Supporting Document(s) RBC,Urine None Seen [facility] WBC,Urine None Seen [facility] Casts,Urine None Seen Normal (applies to non-numeric resu lts) [facility] Squamous Cells,Urine None Seen [facility] Amorphous Sediment,Urine None Seen [facility] Bacteria,Urine None [facility] ID Date Data Source [id number] 04/23/2021 09:52:[address] [facility] Collected By: Nurse Initials: JT Time Collected: 2115 Collected By: Nurse Initials: JT Time Collected: 2115 Collected By: Nurse Initials: JT Time Collected: 2115 Name Value Range Interpretation Code Description Data Stephanie rce(s) Supporting Document(s) HCG,Ur Negative Normal (applies to non-numeric results) [facility] ID Date Data Source [id number] 04/21/2021 02:53:00 PM EDT [address] CONSULTPATIENT NAME: YARELI HATCH MR#: [id number] PHYSICIAN:AUTHOR: Colleen SMITH,Bogdan DATE: #: ERPATIENT : 00See AddendumHistoryHistory of Presenting IllnessPatient is 20-year-old female, currently lives in [facility], single, pastpsych history of borderline personality disorder, bipolar disorderChief complaint: Suicidal ideationHistory of present illness: Patient was seen along with PA students. Accordingto information from PSA patient was presented last night. She was banging herhead and expressing suicidal ideation while she was at [facility] and that is when shewas brought into the hospital. During this course of assessment, patient waspleasant, expressing that she was upset and frustrated about her livingarrangement but she stated that she is open to go back there and stayed thereand she has couple of staff members that she can reach out to and she does notfeel suicidal at this point as well. She was also open to come back into thehospital if needed as well. She denied having any suicidal, homicidalideations, she was also reporting that she likes to use her coping skills suchas journaling, coloring, also she was talking about that if she needed help shewill reach out to a couple of staff member that she feels comfortable talkingto her as well. Patient had been admitted multiple times in the past, and thisis the behavior that patient has been exhibiting for quite some time as well.We also get a call from ER physician stating and getting upset regardingpatient recurrent coming to the emergency room as she was here during thisweekend and was discharged and then she came back as well. Discussed with themregarding patient current treatment plan and current AOT treatment as well.Mental status examination: Patient was alert, oriented with a place, person,appeared somewhat pleasant, her speech remains excited, mood was good, affectwas mostly mood congruent, thought process was mostly organized, thoughtcontent denied having any suicidal, homicidal ideations, denied having anyauditory visual hallucinations, denied delusions, attention concentrationlimited, insight and judgment appeared improved, stable gaitDiagnosis: Adjustment disorder with depressed mood, history of bipolar diso rder, borderline personality disorderPlan: Patient had been admitted multiple times into inpatient mental healthunit as well as being presented to emergency room for similar presentation aswell. However patient is denying having any recent suicidal thoughts, did notshow any aggressive or violent behavior during this assessment as well astalking about her coping skills and maintaining her safety outside with havingsupport such as reaching out to staff member at [facility] if she does not feel safe.ER physician seems to be frustrated with patient recurrent emergency room visitbut upon discussion with the patient patient denied having any such behaviorpertaining to her safety prior to coming to the hospital or any intent to harmherself prior to the hospital. She was also requesting to have her clotheschanged and going back to [facility] as she was under order of AOT. One of thefrustration we have seen with the patient at times patient does not like TLSliving arrangement and for that we consider to discuss with AOT treatmentcoordinator to find a suitable place for the patient and case managementservices to be involved as well. We did not find any criteria for inpatientmental health hospitalization based on the current assessment at this point.Past Psych/Medical HistoryAllergiesCoded Allergies:risperidone (08/04/19)ADDENDUM: Colleen SMITH,Bogdan on 04/21/21 at 1504Patient was also offered a voluntary admission to inpatient mental health unitfor further treatment or if she does not feel safe to return back to [facility].However patient declined and also recommended case management services toprovide her help to find a suitable place that patient likes.DATE SIGNED: 04/21/21 Electronically SignedTIME SIGNED: [id number] BOGDAN ALMAGUER MD Name Value Range Interpretation Code Description Data Stephanie rce(s) Supporting Document(s) ID Date Data Source [id number] 04/20/2021 11:19:00 PM EDT [facility] Name Value Range Interpretation Code Description Data Stephanie rce(s) Supporting Document(s) SALICYLATE < 1.7 mg/dL 0.0-20.0 [facility] ID Date Data Source [id number] 04/20/2021 11:19:00 PM [facility]T [facility] Name Value Range Interpretation Code Description Data Stephanie rce(s) Supporting Document(s) ACETAMINOPHEN < 2.0 ug/mL 0-30 [facility] ID Date Data Source [id number] 04/20/2021 11:19:00 PM EDT [facility] Name Value Range Interpretation Code Description Data Stephanie rce(s) Supporting Document(s) ETOH NONE DETECTED [facility] NONE DETECTED ID Date Data Source [id number] 04/20/2021 11:19:00 PM EDT [facility] Name Value Range Interpretation Code Description Data Stephanie rce(s) Supporting Document(s) GLU 100 mg/dL 70-110 [facility] Patients taking Sulfasalazine may have f alsely depressedGlucose levels. Patients taking Sulfapyridine may havefalsely elevated Glucose levels. Patients should be drawnfor Glucose before the initial administration of eitherdrug. BUN 16 mg/dL 7-23 [facility] CRE 0.657 mg/dL 0.500-1.300 [facility] GFR > 60 mL/min [facility] CHLORIDE 111 mmol/L 99-110 [facility] NA 142 mmol/L 136-147 [facility] POTASSIUM 3.9 mmol/L 3.5-5.1 [facility] TCO2 24 mmol/L 20-33 [facility] ANION GAP 10.9 10.0-20.0 [facility] CA 8.6 mg/dL 8.3-10.7 [facility] ALKALINE PHOS 118 U/L 45-117 [facility] TP 7.4 g/dL 6.0-7.8 [facility] ALB 3.4 g/dL 3.5-5.0 [facility] ESRD Dialysis patient Albumin reference range: 2.9-4.4 g/dL GL 4.0 g/dL 2.3-3.5 [facility] A/G 0.9 1.0-2.5 [facility] T. BILIRUBIN 0.3 mg/dL 0.1-1.1 [facility] [place] Total Bilirubin is n ot recommended forpatients undergoing treatment with eltrombopag (Promacta)due to the potential for falsely elevated results. ALTI 46 U/L 6-54 [facility] Patients taking Sulfasalazine and/or Sul fapyridine may havefalsely depressed ALT levels. Patients should be drawn forALT before the initial administration of either drug. AST 33 U/L 6-38 [facility] Patients taking Sulfasalazine and/or Sul fapyridine may havefalsely depressed AST levels. Patients should be drawn forAST before the initial administration of either drug. ID Date Data Source [id number] 04/20/2021 11:01:00 PM EDT [facility] [place] Name Value Range Interpretation Code Description Data Stephanie rce(s) Supporting Document(s) WBC 7.79 x10E3/uL 4.0-10.5 [facility] RBC 3.99 x10E6/uL 4.20-5.40 [facility] Hemoglobin 11.7 g/dL 12.0-16.0 [facility] Hematocrit 35.3 % 37.0-47.0 [facility] MCV 88.5 fL 81.0-99.0 [facility] MCH 29.3 pg 27.0-31.0 [facility] MCHC 33.1 g/dL 32.7-35.6 [facility] RDW 12.2 % 11.5-14.0 [facility] Platelet count 264 x10E3/uL 150-450 [facility] ital MPV 9.5 fl 6.9-9.5 [facility] Neutrophils 65.2 % 34-64 [facility] Lymphocytes 27.2 % 25-45 [facility] Monocytes 6.0 % 1.7-10.6 [facility] Eosinophils 1.0 % 0.4-7.0 [facility] Basophils 0.3 % 0.1-2.0 [facility] Imm. Gran. 0.3 % 0.1-2.0 [facility] Abs. Neutro. 5.08 x10E3/uL 1.2-7.6 [facility] Abs. Lymph. 2.12 x10E3/uL 1.0-3.5 [facility] Abs. Bryan. 0.47 x10E3/uL 0.1-1.0 N [facility] l Abs. Eosin. 0.08 x10E3/uL 0.1-0.7 [facility] Abs. Baso. 0.02 x10E3/uL 0.0-0.1 [facility] l Abs. Imm. Gran. 0.02 x10E3/uL 0.0-0.1 N [facility] spital ANRBC% 0 % 0 [facility] ID Date Data Source [id number] 04/20/2021 10:40:00 PM EDT [facility] Name Value Range Interpretation Code Description Data Stephanie rce(s) Supporting Document(s) LCOVID-19, [facility] NEGATIVE [facility] lab was ordered by [facility] and reported by [facility]. ID Date Data Source [id number] 04/20/2021 11:16:00 PM EDT [facility] [place] Name Value Range Interpretation Code Description Data Stephanie rce(s) Supporting Document(s) COVID-19, CORDELL NEGATIVE NEGATIVE [facility] Methodology: Isothermal Nucleic Acid Amp lification for thetargeted qualitative detection of SARS-CoV-2 viral nucleicacids. Negative results should be treated as presumptive and, ifinconsistent with clinical signs and symptoms or necessaryfor patient management, should be tested with differentauthorized or cleared molecular tests. Negative results donot preclude SARS-CoV-2 infection and should not be used asthe sole basis for patient management decisions. Negativeresults should be considered in the context of a patient'srecent exposures history and the presence of clinical signsand symptoms consistent with COVID-19.The ID NOW COVID-19 test is only for use under the Food andDrug Administration's Emergency Use Authorization. ID Date Data Source [id number] 04/21/2021 03:43:00 PM EDT [facility] Physician DocumentationClaxlexy-Naveen Hinkle edical CenterName: Yareli Domingo: 20 yrsSex: FemaleDOB: 2000MRN: [id number] Date: 04/20/2021Time: 22:29Account#: [id number] MD: NONE, - Per PatientED Physician Ab Pires Summary:04/21/21 15:00Discharge OrderedLocation: Home Self CareafProblem: an ongoing problemafSymptoms: are unchangedafCondition: StableafDiagnosis- Adjustment disorder, unspecifiedafFollowup:af- With: Private Physician- When: 1 week- Reason: Recheck today's complaintsDischarge Instructions:- ADJUSTMENT DISORDERaf- Discharge Summary [id number]:- Medication Reconciliationaf- Medication Reconciliation Form - 2nd CopyafHPI:04/1104:45 This 20 yrs old White Female presents to ER via Police with complaints ofPsych Problem.na104:45 The patient presents to the emergency department with depression, PT.BROUGHT TO ED BY zx3CSFU FOR MHE. APPARENTLY SHE WAS HITTING HER HEAD INTO A WALL & WAS THREATENINGTO TIESOMETHING AROUND HER NECK PER PATIENT .DENIES HI OR HALLUCINATIONS. Onset:Thesymptoms/episode began/occurred just prior to arrival. Associated signs andsymptoms:The patient has no apparent associated signs or symptoms. Severity of symptoms:Attheir worst the symptoms were moderate.Historical:- Allergies: Haldol; Risperdal;- Home Meds:1. aripiprazole 10 mg oral tablet 1 tab daily2. aripiprazole 400 mg intramuscular suspension,extended release syringe 400 teagywd28 days3. ibuprofen 400 mg Oral tablet 1 tab every 6 hours as needed4. loratadine 10 mg oral tablet 1 tab daily5. montelukast 10 mg oral tablet 1 tab daily6. prazosin 2 mg Oral ca p 1 cap every day at bedtime7. propranolol 10 mg Oral tablet 1 tab 2 times per day8. sertraline 50 mg oral tablet 1 tab take for 2 days9. topiramate 75mg oral tablet daily10. Zyprexa 5 mg Oral tablet 1 tab nightly- PMHx: ADHD; ANXIETY; BIPOLAR DISORDER; Depressive disorder; ptsd;- Immunization history: Flu vaccine is not up to date.- Social history: Smoking status: Vaping ETOH status Denies use of ETOH.- Advance Directives:: None.ROS:04:48 Psych: Negative for drug dependence, alcohol dependence, auditoryhallucinations, by4olkcpk hallucinations, homicidal ideation. All other systems are negative.Exam:04:49 Head/Face: Normocephalic, atraumatic. Eyes: Pupils equal round andreactive to light, [id number]-[id number] motions intact. Lids and lashes normal. Conjunctiva and scleraarenon-icteric and not injected. Cornea within normal limits. Periorbital areaswith noswelling, redness, or edema.04:49 Neck: Trachea midline, no thyromegaly or masses palpated, and nocervicallymphadenopathy. Supple, full range of motion without nuchal rigidity, orvertebralpoint tenderness. No Meningismus. Chest/axilla: Normal chest wall appearanceandmotion. Nontender with no deformity. No lesions are appreciated.C ardiovascular:Regular rate and rhythm with a normal S1 and S2. No gallops, murmurs, or rubs.NormalPMI, no JVD. No pulse deficits. Respiratory: Lungs have equal breath soundsbilaterally, clear to auscultation and percussion. No rales, rhonchi orwheezes noted.No increased work of breathing, no retractions or nasal flaring. Abdomen/GI:Soft,non-tender, with normal bowel sounds. No distension or tympany. No guardingorrebound. No evidence of tenderness throughout. Back: No spinal tenderness.Nocostovertebral tenderness. Full range of motion. Skin: Warm, dry with normalturgor.Normal color with no rashes, no lesions, and no evidence of cellulitis. MS/Extremity:Pulses equal, no cyanosis. Neurovascular intact. Full, normal range ofmotion. Neuro:Awake and alert, GCS 15, oriented to person, place, time, and situation.Cranialnerves II-XII grossly intact. Motor strength 5/5 in all extremities. Sensorygrosslyintact. Cerebellar exam normal.04:49 Constitutional: The patient appears alert, awake, non-diaphoretic,non-toxic.04:49 ENT: External ear(s): are unremarkable, Posterior pharynx: is normal.04:49 Psych: Behavior/mood is aggressive, angry, Oriented to person, place,time, Patienthaving thoughts of suicide. Delusions/hallucinations are not present.Vital Signs:04/1022:32 BP 128 / 84; Pulse 88; Resp 14; Temp 98.9; Pulse Ox 97% ; Weight 104.33kg; Height 5 ef1ft. 6 in. ;04/1115:40 BP 128 / 74; Pulse 75; Resp 16; Temp 97.7(T); Pulse Ox 95% on R/A; Pain0/10; jl15:81qf344/2:32 Body Mass Index 37.12 (104.33 kg, 167.64 cm)ef110/1115:40 Pain Scale: Jmcdwqk87:43 bxsumgsbkq8VPL:03:21 Patient medically screened.na104:50 Data reviewed: vital signs, nurses notes, lab test result(s).na1102:31 Order name: Acetaminophen Level; Complete Time: 03:92sw3152:31 Order name: CBC with diff; Complete Time: 03:57ss2242:32 Order name: CMP; Complete Time: 03:55ga2472:32 Order name: COVID-19 PROFILE+LAB; Complete Time: 03:68iv0972:32 Order name: ETOH; Complete Time: 03:88jt432/1022:32 Order name: Cizxhexcc1932:32 Order name: Salicylate Level; Complete Time: 03:35fi0882:32 Order name: Triage - Drug Oshtxeew519/1022:32 Order name: YXdm121/2:32 Order name: Urine HCG Qualitat oamay413/2:32 Order name: Diet - Mental Health Tray (call dietary); Complete Time:22:43 ef110/1022:32 Order name: Belongings List; Complete Time: 15:70jq2652:32 Order name: Document Weight and Height for BMI; Complete Time: 15:21yj4152:32 Order name: Mental Health Evaluation; Complete Time: 15:39zw757/1103:24 Order name: Medically Cleared for Eval by- Psychosocial, Ios Architect (.JAN)xj2Ihwxrwhzw Medications:15:42 Not Given (Patient Refused): ARIPiprazole 10 mg PO chlseh807:42 Not Given (Patient Refused): Loratadine 10 mg PO eskmbn213:42 Not Given (Patient Refused): Singulair Chewable Tablet 10 mg PO :42 Not Given (Patient Refused): Propranolol 10 mg PO :42 Not Given (Patient Refused): sertraline 50 mg PO fdkxix363:42 Not Given (Physician Discretion): Topiramate 75 mg PO vescif3Bzkgfuhmsu:Dispatcher [employer] Anshul Loving MD MD afAl-Hussein, Nabeel, MD MD na1Hilborne, Erica RN RN ef1 Name Value Range Interpretation Code Description Data Stephanie rce(s) Supporting Document(s) ID Date Data Source [id number] 04/21/2021 03:43:00 PM EDT [facility] Nurse's NotesClaxMount [facility] terName: Yareli DuvallAge: 20 yrsSex: FemaleDOB: 2000MRN: [id number] Date: 04/20/2021Time: 22:29Account#: [id number] MD: NONE, - Per PatientDiagnosis: Adjustment disorder, unspecifiedPresentation:04/1022:30 Presenting complaint: Patient states: the gallery assistant got me because i wasbanging my head and oo4aiernfgntf to tie something around my neck. International Travel Fever No.CoronavirusScreening: Have you received the COVID vaccine? Yes. Communicable DiseaseScreen:Negative for fever>/= 100 degrees Fahrenheit. Communicable disease screen isnegative.(-) rash or unusual skin lesion (-) travel/contact with traveler (-)respiratorysymptoms. Communication Speaks Cymro? Yes, is preferred language.22:30 Acuity: Triage 1yh085:30 Acuity Assignment: Triage 5tc696:30 Method Of Arrival: Gdbytwnf5Afdnrq Assessment:22:31 General: Appears in no apparent distress, Behavior is cooperative. SepsisScreening: ef1(1)Signs/symptoms infection Sepsis is not suspected. Pain: Denies pain. PSS-3Now I'mgoing to ask you some questions that we ask everyone treated here, no matterwhatproblem they are here for. It is part of the hospital's policy and it helps usto makesure we are not missing anything important. Over the past 2 weeks, have youfelt down,depressed, or hopeless? Yes. Exhibiting depressed mood. Positive screen fordepression,MD provider aware of positive screening. Education provided. Over the past 2weeks,have had thoughts of killing yourself? Yes, with current ideation. ActiveSuicidalIdeation (SI). Positive screen for suicide risk. MD provider aware of positivescreening, suicide precautions implemented. ESS-6 ordered. In your lifetime,have youever attempted to kill yourself? No.Historical:- Allergies: Haldol; Risperdal;- Home Meds:1. aripiprazole 10 mg oral tablet 1 tab daily2. aripiprazole 400 mg intramuscular suspension,extended release syringe 400 yqvhvgn70 days3. ibuprofen 400 mg Oral tablet 1 tab every 6 hours as needed4. loratadine 10 mg oral tablet 1 tab daily5. montelukast 10 mg oral tablet 1 tab daily6. prazosin 2 mg Oral cap 1 cap every day at bedtime7. propranolol 10 mg Oral tablet 1 tab 2 times per day8. sertraline 50 mg oral tablet 1 tab take for 2 days9. topiramate 75mg oral tablet daily10. Zyprexa 5 mg Oral tablet 1 tab nightly- PMHx: ADHD; ANXIETY; BIPOLAR DISORDER; Depressive disorder; ptsd;- Immunization history: Flu vaccine is not up to date.- Social history: Smoking status: Vaping ETOH status Denies use of ETOH.- Advance Directives:: None.Screenin:35 Abuse screen: Denies threats or abuse. Denies injuries from another.Nutritional ph1zisirfqgp: No deficits noted. Offer of HIV testing: patient was previouslyofferedscreening. Fall Risk None identified.Assessment:22:35 General: Appears in no apparent distress, obese, unkempt, Behavior isagitated. Neuro: lk9Yjmlv of Consciousness is awake, alert, obeys commands. Respiratory: Nodeficits noted.04/1100:40 Reassessment: Reassessment: pt continually yelling and arguing andthrowing chairs OPD fwmade aware - MD aware - pt has attempted to elope x3 pt continues to expressfeelingsof not being helped and that there is nothing that we can do for her here andthatthere is nothing that can make her happy here and that she needs to leave -safetymaintained and sitter present .06:52 Reassessment: Patient states symptoms have improved.fw10:17 Reassessment: Patient appears in no apparent distress at this time.ef111:50 Reassessment: Patient appears in no apparent distress at this time.patient is sleeping.jl13:07 Reassessment: Patient appears in no apparent distress at this time.patient is sleeping.jlPsychosocia l:13:46 SAFE Act Report Not Completed. Intervention: Observation Level 3. Mentalhealth consult em2is initiated at 13:46.13:54 Referral Information: Evaluation referral is generated by a policeagency: Police. The ou1xktqzus was referred for evaluation because Pt states "the gallery assistant got me becauseI wasbanging my head and threatened to tie something around my neck.".14:14 Subjective: The patients chief complaint is Pt presents to the ED withPolice due to em2the pt banging her head against the wall and threatening to tie somethingaround herneck at the [facility] facility. During MHE, pt denies SI/HI/ Pt denieshallucinations. Ptdenies self harm. Pt states she was just mad at [facility] facility due to being"pissed off"because she hates her current [facility] housing. Pt denies being verbally abusivetowardsstaff at [facility]. [facility] Pt states she would like to be discharged home as she is not suicidalandhomicidal. Pt has outpatient services at [facility]. Pt denies legal issues. Pt denies access toguns. PSAspoke with Nikky at [facility]. Nikky states the pt was banging her head in her roomand inthe hallway there at her residence. Nikky states the pt was verbally abusivetowardsstaff. Nikky states there needs to be a better plan for the pt as there seemsto be apattern of her going to the ED since she has been at [facility] since February 13 2021.Delusions are denied, Hallucinations are denied. Patient's mood is euthymic.14:22 Patient reports history of anxiety, Bipolar Disorder, Depression, Other:Borderline zi1Sdnpbkdggxm Disorder. Mental Health Admissions: [facility], [facility] Environment: Family / Home Support: Fair The patient currentlylives kaley [facility] residence. The patient is single. Detox / Rehab Admissions: None. CurrentOutptAlcohol or Substance Abuse Services: None.14:24 Patient presents to Emergency Department with the following symptomswithin the past 2 ps4gqllk: self-mutilation, suicidal statements/threats. Objective: Patient iscooperative,Speech is normal. Affect is appropriate. Patient has mutilated themselves bycuttingright arm and left arm Cuts on arms from wire in face mask at [facility] facility twodaysago. Mental status exam: Patients appearance is obese, Patient's behavior isnormal,Speech is normal. Affect is appropriate. Mood is euthymic. Perception isnormal.Appetite is normal. Memory is fair. Energy level is normal. Content of thoughtisnormal. Thought Process is intact. Cognitive level is Oriented to person,placeandtime. Insight / Judgment is poor. Rapport with interviewer is good. SuicidalIdeation:Denies. Homicidal Ideation: Denies. Notification to family of patient status isnotcurrently needed or appropriate. Consultation: Psych informed of patient'sstatus at14:15. Disposition: Medically cleared for disposition by Dr Elizabeth Anguiano.PsychiatricConsult is performed by phone with Dr Almaguer. DSM-V DX [place] I diagnosis:Adjustment D/OUnspecified [place] II diagnosis: Deferred [place] III diagnosis: None. [place] IVdiagnosis:poor coping skills. [place] Suicide Severity Rating Scale: Suicidal IdeationRating 0;Intensity of Ideations Rating 0; Suicidal Behavior Rating 0.14:35 Narrative Pt will be discharged back to [facility] per Dr. Almaguer with a diagnosisof Adjustment ow5Coafxswn. Pt can contract for safety. Pt denies SI/HI. Pt will follow up withtheiroutpatient provider, the [facility] and upcomingappointmentswill be verified and expedited. Pt has been provided with the PSA and Reachoutphonenumbers. Pt has been instructed to take medications as prescribed and return [facility] ED should problems continue or worsen. Per Dr. Almaguer, pt will complete 5copingskills/5 goals[address]15:[address] Almaguer spoke with ED Dr. Strauss. Dr. Almaguer states the ptcapable of ju7hjcibh to the ED whenever she feels suicidal and that she needs to. Dr. Alvarezuggestsinvolving Case Management and having [facility] make requests for other housingservices ifthe pt wishes not to live at [facility]. Dr. Almaguer states if the pt is suicidal andwants tostay, then the pt can be admitted voluntarily if she should choose to be..Psych:04/1022:35 Subjective: Patient's mood is.ef122:38 Subjective: Patient's mood is irritable, Having thoughts of suicide.Objective: Patient ef1is using poor eye contact, Speech is loud, Affect is flat. Interventions:Removedpersonal items and placed in bag. Patient placed in hospital gown. Searchedperson fordangerous items. Urine collected and sent for urine drug test. Belonging listfilledout. Observation Level Level 3 Sitter needed. Provider notified. Elton SMITHLevel 3 order placed.Vital Signs:22:32 BP 128 / 84; Pulse 88; Resp 14; Temp 98.9; Pulse Ox 97% ; Weight 104.33kg; Height 5 ef1ft. 6 in. ;04/1115:40 BP 128 / 74; Pulse 75; Resp 16; Temp 97.7(T); Pulse Ox 95% on R/A; Pain0/10; jl15:10us123/1022:32 Body Mass Index 37.12 (104.33 kg, 167.64 cm)ef110/1115:40 Pain Scale: Yxlnsqu03:43 jblegkujbo1QD Course:04/1022:29 Patient arrived in ED.ef122:29 NONE, - Per Patient is Private Physician.ef122:30 Triage completed.ef122:35 Patient has correct armband on for positive identification. Bed in lowposition. Sitter ef1at bedside. Verbal reassurance given. Pillow given.22:35 Labs drawn. Collected by lab. Nasal Swab.ef110/1103:21 Ramón Levy MD is Attending Physician.na106:52 Resting quietly.fw10:17 Appears to be sleeping.ef115:43 No Physician assisted procedures completed.jm0Ujwoychcjnus Medications:15:42 Not Given (Patient Refused): ARIPiprazole 10 mg PO bekrxc797:42 Not Given (Patient Refused): Loratadine 10 mg PO ctiowk097:42 Not Given (Patient Refused): Singulair Chewable Tablet 10 mg PO keclzi247:42 Not Given (Patient Refused): Propranolol 10 mg PO ambysc194:42 Not Given (Patient Refused): sertraline 50 mg PO komgce215:42 Not Given (Physician Discretion): Topiramate 75 mg PO jmhbal9Qyhtxfq:15:00 Discharge ordered by .af15:43 Disposition: Discharged to home ambulatory.ef115:43 Condition: stable, Provider notified of abnormal vital signs.15:43 Discharge instructions given to patient, Instructed on dischargeinstructions, followup and referral plans. Demonstrated understanding of instructions.15:43 Discharge Assessment: Patient verbalized understanding of dispositioninstructions.Patient able15:43 Patient left the ED.e d8Lpawkzzhdt:Anshul Strauss MD MD afAl-Hussein, Nabeel, MD MD na1Hilborne, Erica RN RN kv9KeGlrguBertha Collier RN RN jlWest, Fayeanne, RN RN fwMoyer, Elissa hw0Ibueeilpims: (The following items were deleted from the chart)00:50 00:40 Reassessment: fwfw14:22 13:54 Referral Information: Evaluation referral is generated by ox4gy459:41 14:35 Narrative Pt will be discharged back to [facility] per Dr. Almaguer. Pt cancontract for fw4dmzgfh. Pt denies SI/HI. Pt [facility] and upcoming appointments will be verifiedandexpedited. Pt has been provided with the PSA and Reachout phone numbers. Pt hasbeeninstructed to take medications as prescribed and return to the nearest EDshouldproblems continue or worsen. Per Dr. Almaguer, pt will complete 5 coping skills/5goals. em214:52 14:14 Subjective: The patients ch ief complaint is Pt presents to the EDwith Police due em2to the pt banging her head against the wall and threatening to tie somethingaround herneck at the [facility] facility. During MHE, pt denies SI/HI/ Pt denieshallucinations. Ptdenies self harm. Pt states she was just mad at [facility] facility due to being"pissed off"because she hates her current [facility] housing. Pt denies being verbally abusivetowardsstaff at [facility]. Pt denies threatening to tie something around her neck at [facility]. Pt states she would like to be discharged home as she is not suicidalandhomicidal. Pt [facility]. Pt denies legal issues. Pt denies access toguns..Delusions are denied, Hallucinations are denied. Patient's mood is euthymic.em2 Name Value Range Interpretation Code Description Data [facility](s) Supporting Document(s) ID Date Data Source [id number] 04/19/2021 03:01:00 AM EDT [facility] Name Value Range Interpretation Code Description Data [facility](s) Supporting Document(s) SALICYLATE < 1.7 mg/dL 0.0-20.0 [facility] ID Date Data Source [id number] 04/19/2021 03:01:00 AM [facility] Name Value Range Interpretation Code Description Data Stephanie rce(s) Supporting Document(s) ACETAMINOPHEN < 2.0 ug/mL 0-30 [facility] Data Source [id number] 04/19/2021 03:01:00 AM EDT [facility] Name Value Range Interpretation Code Description Data Stephanie rce(s) Supporting Document(s) ETOH NONE DETECTED [facility] NONE DETECTED ID Date Data Source [id number] 04/19/2021 03:01:00 AM EDT [facility] Name Value Range Interpretation Code Description Data Stephanie rce(s) Supporting Document(s) GLU 86 mg/dL 70-110 [facility] Patients taking Sulfasalazine may have f alsely depressedGlucose levels. Patients taking Sulfapyridine may havefalsely elevated Glucose levels. Patients should be drawnfor Glucose before the initial administration of eitherdrug. BUN 13 mg/dL 7-23 [facility] CRE 0.615 mg/dL 0.500-1.300 [facility] GFR > 60 mL/min [facility] CHLORIDE 113 mmol/L 99-110 [facility] NA 142 mmol/L 136-147 [facility] POTASSIUM 3.9 mmol/L 3.5-5.1 [facility] TCO2 24 mmol/L 20-33 [facility] ANION GAP 8.9 10.0-20.0 [facility] CA 8.6 mg/dL 8.3-10.7 [facility] ALKALINE PHOS 112 U/L 45-117 [facility] TP 7.3 g/dL 6.0-7.8 [facility] ALB 3.3 g/dL 3.5-5.0 [facility] ESRD Dialysis patient Albumin reference range: 2.9-4.4 g/dL GL 4.0 g/dL 2.3-3.5 [facility] A/G 0.8 1.0-2.5 [facility] T. BILIRUBIN 0.2 mg/dL 0.1-1.1 [facility] [place] Total Bilirubin is n ot recommended forpatients undergoing treatment with eltrombopag (Promacta)due to the potential for falsely elevated results. ALTI 41 U/L 6-54 [facility] Patients taking Sulfasalazine and/or Sul fapyridine may havefalsely depressed ALT levels. Patients should be drawn forALT before the initial administration of either drug. AST 26 U/L 6-38 [facility] Patients taking Sulfasalazine and/or Sul fapyridine may havefalsely depressed AST levels. Patients should be drawn forAST before the initial administration of either drug. ID Date Data Source [id number] 04/19/2021 02:32:00 AM EDT [facility] Name Value Range Interpretation Code Description Data Stephanie rce(s) Supporting Document(s) WBC 7.86 x10E3/uL 4.0-10.5 [facility] RBC 3.92 x10E6/uL 4.20-5.40 [facility] Hemoglobin 11.6 g/dL 12.0-16.0 [facility] Hematocrit 35.0 % 37.0-47.0 [facility] MCV 89.3 fL 81.0-99.0 [facility] MCH 29.6 pg 27.0-31.0 [facility] MCHC 33.1 g/dL 32.7-35.6 [facility] RDW 12.1 % 11.5-14.0 [facility] Platelet count 276 x10E3/uL 150-450 [facility] ital MPV 9.4 fl 6.9-9.5 [facility] Neutrophils 60.4 % 34-64 [facility] Lymphocytes 30.8 % 25-45 [facility] Monocytes 6.9 % 1.7-10.6 [facility] Eosinophils 1.1 % 0.4-7.0 [facility] Basophils 0.3 % 0.1-2.0 [facility] Imm. Gran. 0.5 % 0.1-2.0 [facility] Abs. Neutro. 4.75 x10E3/uL 1.2-7.6 [facility] Abs. Lymph. 2.42 x10E3/uL 1.0-3.5 [facility] Abs. Bryan. 0.54 x10E3/uL 0.1-1.0 [facility] Abs. Eosin. 0.09 x10E3/uL 0.1-0.7 [facility] Abs. Baso. 0.02 x10E3/uL 0.0-0.1 [facility] Abs. Imm. Gran. 0.04 x10E3/uL 0.0-0.1 [facility] spital ANRBC% 0 % 0 [facility] ID Date Data Source [id number] 04/19/2021 02:36:00 AM EDT [facility] Name Value Range Interpretation Code Description Data Stephanie rce(s) Supporting Document(s) PCP VISTA NEG NEGATIVE [facility] MINIMUM LEVEL OF DETECTION IS 25 ng/ml BENZODIAZEPINES NEG NEGATIVE [facility] MINIMUM LEVEL OF DETECTION IS 200 ng/ml COCAINE VISTA NEG NEGATIVE [facility] MINIMUM LEVEL OF DETECTION IS 300 ng/ml AMPHETAMINES NEG NEGATIVE [facility] MINIMUM LEVEL OF DETECTION IS 1000 ng/ml BARBITURATES NEG NEGATIVE [facility] CUTOFF CONCENTRATION IS 200 ng/ml CANNABINOIDS NEG NEGATIVE [facility] CUTOFF CONCENTRATION IS 50 ng/ml METHADONE VISTA NEG NEGATIVE [facility] MINIMUM LEVEL OF DETECTION IS 300 ng/ml OPIATE VISTA NEG NEGATIVE [facility] MINIMUM DETECTION LEVEL IS 300 ng/ml ID Date Data Source [id number] 04/19/2021 02:16:00 AM EDT [facility] Name Value Range Interpretation Code Description Data Stephanie rce(s) Supporting Document(s) HCG QUAL URINE Negative Negative [facility] ID Date Data Source [id number] 04/19/2021 02:16:00 AM EDT [facility] Name Value Range Interpretation Code Description Data Stephanie rce(s) Supporting Document(s) URINE COLOR Yellow [facility] UAPR Cloudy [facility] UGLU Negative NEGATIVE [facility] URINE BILIRUBIN Negative NEGATIVE [facility] UKET Negative NEGATIVE [facility] USG 1.029 1.010-1.025 [facility] UBLO Negative NEGATIVE [facility] UpH 5.5 5.0-8.0 [facility] UPRO Negative Negative [facility] UUB 1.0 mg/dL 0.2-1.0 [facility] UNIT Negative Negative [facility] ULEU Negative Negative [facility] ID Date Data Source [id number] 04/19/2021 01:30:00 AM EDT [facility] Name Value Range Interpretation Code Description Data Stephanie rce(s) Supporting Document(s) LCOVID-19, CORDELL NEGATIVE [facility] This lab was ordered by [facility] and reported by [facility]. ID Date Data Source [id number] 04/19/2021 02:30:00 AM EDT [facility] Name Value Range Interpretation Code Description Data Stephanie rce(s) Supporting Document(s) COVID-19, CORDELL NEGATIVE NEGATIVE [facility] Methodology: Isothermal Nucleic Acid Amp lification for thetargeted qualitative detection of SARS-CoV-2 viral nucleicacids. Negative results should be treated as presumptive and, ifinconsistent with clinical signs and symptoms or necessaryfor patient management, should be tested with differentauthorized or cleared molecular tests. Negative results donot preclude SARS-CoV-2 infection and should not be used asthe sole basis for patient management decisions. Negativeresults should be considered in the context of a patient'srecent exposures history and the presence of clinical signsand symptoms consistent with COVID-19.The ID NOW COVID-19 test is only for use under the Food andDrug Administration's Emergency Use Authorization. ID Date Data Source [id number] 04/19/2021 02:55:00 PM EDT [facility] Physician DocumentationClaxton-Naveen edical CenterName: Yareli DuvallAge: 20 yrsSex: FemaleDOB: 2000MRN: [id number] Date: 04/19/2021Time: 01:17Account#: [id number] MD: NONE, - Per PatientED Physician Rebekah Groverposition Summary:04/19/21 14:31Discharge OrderedLocation: Home Self CareafProblem: an ongoing problemafSymptoms: are unchangedafCondition: StableafDiagnosis- Bipolar disorder, unspecifiedafFollowup:af- With: Private Physician- When: 1 week- Reason: Recheck today's complaintsDischarge Instructions:- BIPOLAR DISORDERaf- Discharge Summary Lmucnta32Peeef:- Medication Reconciliationaf- Medication Reconciliation Form - 2nd CopyafHPI:04/907:14 This 20 yrs old White Female presents to ER via Police with complaints ofPsych Problem.br07:14 Obese 20-year-old female brought by PD for evaluation of self- harm.Please call to seen brpatient where she was seen slamming her head against the wall after attemptingto cutwrists w wire from [employer]. self endorses having [facility].Historical:- Allergies: Haldol; Risperdal;- Home Meds:1. aripiprazole 10 mg oral tablet 1 tab daily2. aripiprazole 400 mg intramuscular suspension,extended release syringe 400 xyutnfm75 days3. ibuprofen 400 mg Oral tablet 1 tab every 6 hours as needed4. loratadine 10 mg oral tablet 1 tab daily5. montelukast 10 mg oral tablet 1 tab daily6. prazosin 2 mg Oral capsule 1 cap every day at bedtime7. propranolol 10 mg Oral tablet 1 tab 2 times per day8. sertraline 50 mg oral tablet 1 tab take for 2 days9. topiramate 75mg oral tablet daily10. Zyprexa 5 mg Oral tablet 1 tab nightly- PMHx: ADHD; ANXIETY; BIPOLAR DISORDER; Depressive disorder; ptsd;- PSHx: None;- Immunization history: Flu vaccine is not up to date. Patient has never beenvaccinated.- Social history: Smoking status: Patient states former smoker of tobacco.Patient/guardian denies using street drugs, IV drugs, ETOH status Denies use ofETOH.- Advance Directives:: None.ROS:07:16 Skin: Positive for abrasion(s). Psych: Positive for anxiety, depression,suicide brgesture. All other systems are negative.Exam:07:16 Head/Face: Normocephalic, atraumatic. Eyes: Pupils equal round andreactive to light, brextra-ocular motions intact. Lids and lashes normal. Conjunctiva and scleraarenon-icteric and not injected. Cornea within normal limits. Periorbital areaswith noswelling, redness, or edema. ENT: Nares patent. No nasal discharge, no septalabnormalities noted. Tympanic membranes are normal and external auditorycanals areclear. Oropharynx with no redness, swelling, or masses, exudates, or evidenceofobstruction, uvula midline. Mucous membranes moist. Chest/axilla: Normalchest wallappearance and motion. Nontender with no deformity. No lesions areappreciated.Cardiovascular: Regular rate and rhythm with a normal S1 and S2. No gallops,murmurs,or rubs. Normal PMI, no JVD. No pulse deficits. Respiratory: Lungs haveequal breathsounds bilaterally, clear to auscultation and percussion. No rales, rhonchi orwheezesnoted. No increased work of breathing, no retractions or nasal flaring.Abdomen/GI:Soft, non-tender, with normal bowel sounds. No distension. No guarding orrebound.No evidence of tenderness throughout. MS/ Extremity: Pulses equal, nocyanosis.Neurovascular intact. Full, normal range of motion. Neuro: Awake and alert,GCS 15,oriented to person, place, time, and situation. Cranial nerves iii-XII grosslyintact.07:16 Skin: injury, abrasion(s), small abrasion noted.07:16 Psych: Behavior/mood is aggressive, Affect is animated, Oriented toperson, place,time, Patient having thoughts of suicide. Denies suicidal plan. Judgement /Insight isnormal. Delusions/hallucinations are not present.Vital Signs:01:24 BP 132 / 107; Pulse 91; Resp 20; Temp 98.3; Pulse Ox 98% on R/A; Jyfjxe358.33 kg; ha6Vrfkzb 5 ft. 6 in. ; Pain 0/10;14:44 BP 119 / 88; Pulse 88; Resp 16; Temp 98; Pulse Ox 98% ;kk201:24 Body Mass Index 37.12 (104.33 kg, 167.64 cm)kk301:24 Pain Scale: Tpffycb9STO:01:33 Patient medically screened.br07:17 Data reviewed: vital signs, nurses notes, old medical records, lab testresult(s). brTransition of care: After a detail discussion of the patient's case, care istransferred to Anshul Strauss MD. ED course: Obese 28-year-old withextensivepsychiatric history brought by PD for evaluation of intent for self-harm.Patient wasfound slamming hitting his wall and attempted to cut wrists with piece of wirefrommask. In ED patient seemed to be very verbally aggressive threatening physicalviolenceto staff and attempted to elope twice. Patient was restrained she becameextremelyviolent which necessitated use of chemical sedation that was unsuccessful giventheescalating physicality of the situation patient was placed in restraints.Patient wasthen placed in a monitored one-on-one setting and after time reached restraintswereremoved and patient has remained cooperative. Patient medically cleared waitingto beseen by PSA.04/901:37 Order name: Acetaminophen Level; Complete Time: 03::37 Order name: CBC with diff; Complete Time: 03::37 Order name: CMP; Complete Time: 03::37 Order name: COVID-19 PROFILE+LAB; Complete Time: 03::37 Order name: ETOH; Complete Time: 03::37 Order name: Oumeuvuam016/0901:37 Order name: Salicylate Level; Complete Time: 03::37 Order name: Triage - Drug Screen; Complete Time: 03::37 Order name: UA; Complete Time: 03::37 Order name: Urine HCG Qualitative; Complete Time: 03::37 Order name: Diet - Mental Health Tray (call dietary)kk:37 Order name: Belongings Forhdd152:37 Order name: Document Weight and Height for JEMnd772:37 Order name: Mental Health Mwkvcedkdome315/0901:37 Order name: Mental Health Level 0ye60604/901:37 Order name: VS q /0903:17 Order name: Consult Orders-Psychosocial, Ios Architect (.PSA)brDispensed Medications:03:37 Drug: B52 IM - (LORazepam 2 mg, diphenhydrAMINE 50 mg, HaloperidolLactate 5 mg) Route: cm4IM; Site: left vastus lateralis;Signatures:Dispatcher [employer] Anshul Loving MD MD afRoberts, Brandon, MD MD brKelly, Krista, RN RN gx4TpshdqdhkWnedy Severino RN RN cm4 Name Value Range Interpretation Code Description Data Stephanie rce(s) Supporting Document(s) ID Date Data Source [id number] 04/19/2021 02:55:00 PM EDT [facility] terName: Yareli DuvallAge: 20 yrsSex: FemaleDOB: 2000MRN: [id number] Date: 04/19/2021Time: 01:17Account#: [id number] MD: NONE, - Per PatientDiagnosis: Bipolar disorder, unspecifiedPresentation:04/901:18 Presenting complaint: Patient states: "Well, the gallery assistant came because I wasbanging my uh3rdak on the wall and I wasn't being suicidal.". Coronavirus Screening: Have youbeendiagnosed with COVID-19 in the past 30 days? no Are you currently on quarantinebyPublic Health? no Flu-like symptoms reported in the last 14 days: no. Have youhadclose contact with confirmed or suspected COVID-19 case? no Do you live in asettingwhere a large of amount of people live, such as residential, family care,usp, etc?yes. Have you traveled to a location with widespread or ongoing COVID-19communityspread or outside of [facility]? no Have you traveled internationally or hadcontact withsomeone that has traveled and has been ill in the past 3 weeks? no Have youreceivedthe COVID vaccine? Yes Sophia unknown. Communication Speaks Cymro? Yes, ispreferredlanguage. Language Line Services needed? No Are TDD needed? No. Best learningmethod:discussion. Learning barriers: none identified.01:18 Acuity: Triage 1ts620:18 Method Of Arrival: Gyuetmnu053:19 Acuity Assignment: Triage 1ne753:21 International Travel Fever No. Communicable Disease Screen: Negative forfever>/= 100 mu0csiblfx Fahrenheit. Communicable disease screen is negative. (-) rash orunusual skinlesion (-) travel/contact with traveler (-) respiratory symptoms.Triage Assessment:01:24 General: Appears unkempt, well nourished, Behavior is appropriate forage, cooperative, wv2Hytejs fever, chills. Sepsis Screening: (1)Signs/symptoms infection Sepsis isnotsuspected. Pain: Denies pain. PSS-3 Now I'm going to ask you some questionsthat we askeveryone treated here, no matter what problem they are here for. [facility] and it helps us to make sure we are not missing anythingimportant.Over the past 2 weeks, have you felt down, depressed, or hopeless? Yes.Exhibitingdepressed mood. Positive screen for depression, MD provider aware of positivescreening. Education provided. Over the past 2 weeks, have had thoughts ofkillingyourself? Yes, with no current ideation. Exhibiting Active Suicidal Ideation(SI).Positive screen for suicide risk. MD provider aware of positive screening,suicideprecautions implemented. ESS-6 ordered. In your lifetime, have you everattempted tokill yourself? Yes, Within the last month (but not today). Exhibits LifetimeSuicideAttempt (SA). Positive screen for suici de risk. MD provider aware of positivescreen,suicide precautions implemented. ESS-6 ordered. Derm: superficial scratchesnoted onright and left forearm. Neuro: Level of Consciousness is awake, alert, Orientedtoperson, place, time, Denies weakness dizziness. Respiratory: Airway is patentRespiratory effort is even, unlabored, Respiratory pattern is regular,symmetrical,Denies cough, shortness of breath labored breathing. GI: Reports normal bowelhabits,tolerance of fluids, tolerance of food, Denies nausea, pain, vomiting. :Deniesburning with urination, cramping discharge, inability to void, incontinence,painurinary frequency, urgency. Musculoskeletal: Circulation, motion, and sensationintact.Injury Description: superficial scratches noted on right and left forearm frompatientfrom metal wire and patient was banging head against wall.Historical:- Allergies: Haldol; Risperdal;- Home Meds:1. aripiprazole 10 mg oral tablet 1 tab daily2. aripiprazole 400 mg intramuscular suspension,extended release syringe 400 imxfnok55 days3. ibuprofen 400 mg Oral tablet 1 tab every 6 hours as needed4. loratadine 10 mg oral tablet 1 tab daily5. montelukast 10 mg oral tablet 1 tab daily6. prazosin 2 mg Oral capsule 1 cap every day at bedtime7. propranolol 10 mg Oral tablet 1 tab 2 times per day8. sertraline 50 mg oral tablet 1 tab take for 2 days9. topiramate 75mg oral tablet daily10. Zyprexa 5 mg Oral tablet 1 tab nightly- PMHx: ADHD; ANXIETY; BIPOLAR DISORDER; Depressive disorder; ptsd;- PSHx: None;- Immunization history: Flu vaccine is not up to date. Patient has never beenvaccinated.- Social history: Smoking st atus: Patient states former smoker of tobacco.Patient/guardian denies using street drugs, IV drugs, ETOH status Denies use ofETOH.- Advance Directives:: None.Screenin:40 Abuse screen: Denies threats or abuse. Denies injuries from another.Nutritional bm7xwydtvsdo: No deficits noted. Offer of HIV testing: patient was previouslyofferedscreening. Fall Risk None identified.Assessment:01:35 Reassessment: No changes from previously documented assessment.kk301:54 Reassessment: Patient refused to have labs drawn, explained mental healthprocess and kk3the steps necessary to be medically cleared, patient still refused, PSA and EDprovidermade aware.02:22 Reassessment: patient starts refusing blood work and screaming at staff.[employer]D called to [place] patient is known to be aggressive. Patient gets aggitated when thepolice gethere and continues to scream at staff, code carmen called. Patient agrees toget bloodwork done. .03:38 Reassessment: patient tries to elope twice, walking out to the ramp.Patient was wl8mmptqbigsm and followed out to the ramp, patient did come back inside bothtimes.Patient begins hitting her head off the wall and not cooperating with staff andyelling/ calling staff vulgar names. Patient has no self control at this timescreamingin the ER. Vanesa ramos called..03:52 Reassessment: Patient placed in 4 point restraints at 0342 due tocontinued lack of wq0ywva control.04:33 Reassessment: patient released from restraints at 0433.cm404:46 Reassessment: Patient appears in no apparent distress at this time.cm407:30 Reassessment: Patient appears in no apparent distress at this time. Nochanges from wm1ludpiaeqnu documented assessment. Patient sleeping.09:57 Reassessment: Patient appears in no apparent distress at this time. Nochanges from hx9relnbgzasi documented assessment. Patient sleeping. .Psychosocial:07:26 SAFE Act Report Not Completed. Intervention: Observation Level 3. Mentalhealth consult 8is initiated at 07:26. Referral Information: Evaluation referral is generatedby apolice agency: [facility]. The patient was referred for evaluation because hittinghead offthe wall.11:33 Subjective: The patients chief complaint is hitting head off wall. Ptpresents to the am11ED with [employer] after hitting her head off the wall at [facility]. Pt reports she waslightlyhitting her head off the wall. Pt reports that she had her headphones in so shedid nothear staff when they were asking her to stop. Pt states that because she didnot stopstaff at [facility] called the police on her to be brought in. Pt denies SI/HI. Ptdeniesaccess to guns. Pt reports suicide attempts in the past. Pt has been inpatientbeforenumerous times at numerous facilities last being three days ago at [facility]. Ptreportsthat she has been and eating and sleeping well. Pt reports [facility] Pt states that she does not feelshe needsinpatient services at this time. Pt reports she feels she would be safe to bedischarged home at this time back to [facility]. Delusions are denied, Hallucinationsaredenied. Patient's mood is depressed.12:00 Patient reports history of anxiety, Bipolar Disorder, Depression, self-mutilation, ri23Tepkny Health Admissions: multiple last yash ng at [facility] two days ago CurrentOutpatient Mental Health Services: Psychiatrist / Agency[facility].LivingEnvironment: Family / Home Support: good The patient currently lives in a [facility].12:04 Patient presents to Emergency Department with the following symptomswithin the past 2 ed76qwkye: Anger, anxiety, depressed mood, poor concentration, poor impulsecontrol,suicidal ideation with no plan.12:06 Objective: Patient is cooperative, Speech is normal. Affect isappropriate. Mental ny48imnont exam: Patients appearance is appropriate, Patient's behavior is normal,Speechis normal. Affect is appropriate. Mood is depressed. Perception is normal.Appetite isnormal. Memory is good. Energy level is normal. Content of thought is normal.ThoughtProcess is intact. Cognitive level is Oriented to person,place and time.Insight /Judgment is good. Rapport with interviewer is good. Suicidal Ideation: Denies.Homicidal Ideation: Denies.13:32 Consultation: Psych MD informed of patient's status at 13:33, ED MDnotified of ao04fwlmmiae status at 13:33. Disposition: Medically cleared for disposition by [facility].Psychiatric Consult is performed by phone with Dr Strauss The patient has asafedestination which is Pt will be discharged to [facility] per Dr. Canela. Pt cancontract forsafety and denies SI/HI. Pt will follow up with outpatient next week. Pt willtakemedications as prescribed. Pt provided contact information for JAN Mazariegos. Ptwill come to the ED if problems continue or worsen. DSM-V DX [place] I diagnosis:BipolarD/O, Unspecified [place] II diagnosis: Deferred [place] III diagnosis: None. [place] IVdiagnosis: poor impulse control. The patient is not a cashier self service gasoline ormilitarydependent. [place] Suicide Severity Rating Scale: Suicidal Ideation Rating 0;Intensity of Ideations Rating 0; Suici reji Behavior Rating 0.Psych:01:28 Subjective: Patient's mood is euphoric, Delusions are denied,Hallucinations are denied qt2Bzoytd thoughts of suicide. Denies suicidal plan. Objective: Patient iscooperative,Speech is normal, Affect is appropriate, Patient has mutilated themselves byscratchingself using a metal wire on right and left forearm. Interventions: Removedpersonalitems and placed in bag. Patient placed in hospital gown. Searched person fordangerousitems. Urine collected and sent for urine drug test. Belonging list filled out.Observation Level Level 3 Sitter needed. Provider notified. Zeeshan Grover MDCday [facility] hospital[facility] notified. Wendy Toby Level 3 order placed.Vital Signs:01:24 BP 132 / 107; Pulse 91; Resp 20; Temp 98.3; Pulse Ox 98% on R/A; Pihesv192.33 kg; gn8Yrubys 5 ft. 6 in. ; Pain 0/10;14:44 BP 119 / 88; Pulse 88; Resp 16; Temp 98; Pulse Ox 98% ;kk201:24 Body Mass Index 37.12 (104.33 kg, 167.64 cm)kk301:24 Pain Scale: Qsopgju0CH Course:01:17 Patient arrived in ED.kk301:18 NONE, - Per Patient is Private Physician.kk301:19 Triage completed.kk301:30 Ratna Barbosa, RN is Primary Nurse.kk301:33 Zeeshan Grover MD is Attending Physician.br01:35 Urine collected. Clean catch specimen. Nasal Swab Collected by Nurse.kk301:40 Patient has correct armband on for positive identification. Placed ingown. Bed in low hq0tishliam. Call light in reach. Side rails up X 1. Sitter at bedside.01:40 Verbal reassurance given. Pillow given. Head of bed elevated.kk304:46 No apparent distress. Resting quietly.cm407:32 Primary Nurse role handed off by Ratna Barbosa RNkk3Administered Medications:03:37 Drug: B52 IM - (LORazepam 2 mg, diphenhydrAMINE 50 mg, HaloperidolLactate 5 mg) Route: cm4IM; Site: left vastus lateralis;Outcome:14:31 Discharge ordered by .af14:54 Condition: stable.kk214:54 Discharge instructions given to patient, Instructed on dischargeinstructions, followup and referral plans. Demonstrated understanding of instructions.14:54 Discharge Assessment: Patient verbalized understanding of dispositioninstructions.Patient has no functional deficits.14:55 Patient left the ED.dp2Fbrtowdmmb:Anshul Strauss MD MD afKnight, Zakia, RN RN kr2Aptw, Zeeshan Kennedy MD MD brKelly, Krista, RN RN [id number], Usha carrollhg1BaoveynmtWendy quintana, RN RN kk5Ntlb, Olivia, RN RN sw2 Name Value Range Interpretation Code Description Data Stephanie rce(s) Supporting Document(s) ID Date Data Source [id number] 04/17/2021 10:05:00 AM EDT [facility] Name Value Range Interpretation Code Description Data Stephanie rce(s) Supporting Document(s) Respiratory specimen severe acute respir atory syndrome coronavirus 2 (SARS-CoV-2) RNA Negative (qualifier value) [facility] This lab was ordered by [facility] and reported by . ID Date Data Source [id number] 04/17/2021 10:35:[address] [facility] Name Value Range Interpretation Code Description Data Stephanie rce(s) Supporting Document(s) SARS-CoV-2 RNA Negative Normal (applies to non-numeric r esults) [facility] Negative results should be treated as pr esumptive and, if inconsistent with clinical signs and symptoms or necessary for patient management, should be tested with different authorized or cleared molecular tests. Negative results do not preclude SARS-CoV-2 infection and should not be used as the sole basis for patient management decisions. Negative results should be considered in the context of a patient???s recent exposures, history and the presence of clinical signs and symptoms consistent with COVID-19. This test has not been FDA cleared or approved; this test has been authorized by FDA under an Emergency Use Authorization for use by laboratories certified under the Clinical Laboratory Improvement Amendments of 1988 (CLIA), 42 U.S.C. ???263a, to perform moderate complexity/high complexity tests and at the Point of Care (POC), i.e., in patient care settings operating under a CLIA Certificate of Waiver, Certificate of Compliance, or Certificate of Accreditation. Factsheets for healthcare providers: https://www.fda.gov/media/938294/download Factsheets for patients: https://www.fda.gov/media/507824/download The ID NOW Instrument is a rapid molecular in vitro diagnostic test utilizing an isothermal nucleic acid amplification technology intended for the qualitative detection of nucleic acid from the SARS-CoV-2 viral RNA. THIS IS A STATE REPORTABLE COMMUNICABLE DISEASE. Manual entry verified by Megan Murphy 04/17/21 1034 ID Date Data Source [id number] 04/17/2021 10:56:[address] [facility] Name Value Range Interpretation Code Description Data Stephanie rce(s) Supporting Document(s) HCG,Ur Negative Normal (applies to non-numeric results) [facility] ID Date Data Source [id number] 04/17/2021 02:47:00 AM [facility] Name Value Range Interpretation Code Description Data Stephanie rce(s) Supporting Document(s) UDS Benzodiazepines Screen Negative Normal (applies to n on-numeric results) [facility] UDS Cocaine Screen Negative Normal (applies to non-numer ic results) [facility] UDS Ampetamine Screen Negative Normal (applies to non-nu meric results) [facility] UDS Cannabinoids Screen Negative Normal (applies to non- numeric results) [facility] UDS Opiates Screen Negative Normal (applies to non-numer ic results) [facility] UDS Barbiturates Screen Negative Normal (applies to non- numeric results) [facility] Threshold Levels Benzodiazepine 200 ng/mL Cocaine 300 ng/mL Amphetamines 1000 ng/mL Cannabinoids (THC) 50 ng/mL Opiates 300 ng/mL Barbiturates 200 ng/mL All positive findings are presumptive and unconfirmed. Confirmation of positive results are performed only at request of provider. Unconfirmed results must not be used for non-medical purposes (i.e. preemployment and legal purposes) ID Date Data Source [id number] 04/17/2021 02:46:00 AM [facility] Collected By: Nurse Initials: JT Time Collected: 214 Collected By: Nurse Initials: JT Time Collected: 214 Name Value Range Interpretation Code Description Data Stephanie rce(s) Supporting Document(s) Color,Urine Colorl-Dk Y Normal (applies to non-numeric res ults) [facility] Clarity,Urine Clear Normal (applies to non-numeric re sults) [facility] Specific [place],Urine 1.005-1.030 [facility] pH,Urine 5.0-8.0 Normal (applies to non-numeric resul ts) [facility] Protein,Urine Negative Normal (applies to non-numeric re sults) [facility] Glucose,Urine Negative Normal (applies to non-numeric re sults) [facility] Ketones,Urine Negative Normal (applies to non-numeric re sults) [facility] Blood,Urine Negative [facility] Bil[facility],Urine Negative [facility] pital Urobilinogen,Urine 0.2-1.0 Normal (applies to non-numer ic results) [facility] Leukocyte Esterase,Urine Negative [facility] Nitrite,Urine Negative Normal (applies to non-numeric re sults) [facility] ID Date Data Source [id number] 04/17/2021 02:46:00 AM [facility] Collected By: Nurse Initials: JT Time Collected: 214 Collected By: Nurse Initials: JT Time Collected: 214 Name Value Range Interpretation Code Description Data Stephanie rce(s) Supporting Document(s) RBC,Urine None Seen [facility] WBC,Urine None Seen [facility] Casts,Urine None Seen Normal (applies to non-numeric resu lts) [facility] Squamous Cells,Urine None Seen [facility] Amorphous Sediment,Urine None Seen [facility] Bacteria,Urine None Seen [facility] ID Date Data Source [id number] 04/17/2021 02:29:[address] [facility] Name Value Range Interpretation Code Description Data Stephanie rce(s) Supporting Document(s) Sodium 139 mmol/L 136-145 Normal (applies to non-numeric resul ts) [facility] Potassium 3.5-5.[address] [facility] spital Chloride 102 mmol/L 98-107 Normal (applies to non-numeric resul ts) [facility] Carbon Dioxide CO2 21-32 Normal (applies to non-numer ic results) [facility] Anion Gap 5.0-16.0 Normal (applies to non-numeric resul ts) [facility] BUN 12 mg/dL 7-18 Normal (applies to non-numeric results) [facility] Creatinine,Serum 0.7-1.2 Normal (applies to non-numeric results) [facility] GFR >60 Normal (applies to non-numeric results) [facility] Glucose Level 99 mg/dL 60-99 Normal (applies to non-numeric re sults) [facility] Reference range is only applicable when patient is fasting Note the following drug interference: Sulfasalazine Sulfapyridine Can see falsely depressed Can see falsely elevated result with up to 17% results with up to 11% decrease in measurement increase in measurement Recommend patients be collected for this test prior to administration of either drug. Calcium 8.5-10.1 Normal (applies to non-numeric resul ts) [facility] Bilirubin,Total 0.1-1.9 Normal (applies to non-numeric results) [facility] SGOT(AST) 26 U/L 15-37 Normal (applies to non-numeric resul ts) [facility] Note the following drug interference: Sulfasalazine Sulfapyridine Can see falsely depressed Can see falsely elevated result with up to 10% results with up to 10% decrease in measurement increase in measurement Recommend patients be collected for this test prior to administration of either drug. SGPT(ALT) 45 U/L 12-78 Normal (applies to non-numeric resul ts) [facility] Note the following drug interference: Sulfasalazine Sulfapyridine Can see falsely depressed Can see falsely elevated result with up to 29% results with up to 10% decrease in measurement increase in measurement Recommend patients be collected for this test prior to administration of either drug. Alkaline Phosphatase 133 U/L 38-126 Above high normal [facility] can increase Alkaline Phosp le vels up to 2 times the normal adult value. Normal values for children and adolescents are 2 to 3 times the normal adult value. Total Protein 6.0-8.2 Normal (applies to non-numeric re sults) [facility] Albumin Level 3.4-5.0 Normal (applies to non-numeric re sults) [facility] ID Date Data Source [id number] 04/17/2021 02:29:[address] [facility] Name Value Range Interpretation Code Description Data Stephanie rce(s) Supporting Document(s) Salicylate 2.8-20.0 Below low normal [facility] ID Date Data Source [id number] 04/17/2021 02:29:00 AM [facility] Name Value Range Interpretation Code Description Data Stephanie rce(s) Supporting Document(s) Troponin I 0.000-0.056 Normal (applies to non-numeric resu lts) [facility] ID Date Data Source [id number] 04/17/2021 02:29:00 AM [facility] Name Value Range Interpretation Code Description Data Stephanie rce(s) Supporting Document(s) Acetaminophen 10.0-30.0 Below low normal [facility] ID Date Data Source [id number] 04/17/2021 02:29:00 AM [facility] Name Value Range Interpretation Code Description Data Stephanie rce(s) Supporting Document(s) Magnesium 1.8-2.4 Normal (applies to non-numeric resul ts) [facility] ID Date Data Source [id number] 04/17/2021 02:28:[address] [facility] Name Value Range Interpretation Code Description Data Stephanie rce(s) Supporting Document(s) Ethanol Less than 10.0 Normal (applies to non-numeric r esults) [facility] ID Date Data Source [id number] 04/17/2021 02:07:[address] [facility] Name Value Range Interpretation Code Description Data Stephanie rce(s) Supporting Document(s) White Blood Count 3.5-10.5 Normal (applies to non-numeri c results) [facility] Red Blood Count 3.90-5.00 Normal (applies to non-numeric results) [facility] Hemoglobin 12.0-15.5 Normal (applies to non-numeric resul ts) [facility] Hematocrit 34.9-44.5 Normal (applies to non-numeric resul ts) [facility] Mean Corpuscular Volume 81.2-95.1 Normal (applies to non- numeric results) [facility] Mean Corpuscular Hgb 25.6-32.2 Normal (applies to non-num deena results) [facility] Mean Corpuscular Hgb Conc 32.0-36.0 Normal (applies to no n-numeric results) [facility] Red Cell Distribution Width 11.9-15.5 Normal (appli es to non-numeric results) [facility] Platelet Count 285 x10 3/uL 150-450 Normal (applies to non-numeric results) [facility] Mean Platelet Volume 9.4-12.4 Normal (applies to non-num deena results) [facility] Neutrophils% (Auto) 31.0-71.0 Normal (applies to non-nume frank results) [facility] Lymphocytes% (Auto) 20.0-55.0 Normal (applies to non-nume frank results) [facility] Monocytes% (Auto) 4.0-12.0 Normal (applies to non-numeri c results) [facility] Eosinophils% (Auto) 1.0-8.0 Normal (applies to non-nume frank results) [facility] Basophils% (Auto) 0.0-2.0 Normal (applies to non-numeri c results) [facility] Immature Granulocytes% (Auto) 0.0-2.0 Normal (alexander lies to non-numeric results) [facility] Neutrophils# (Auto) 1.50-6.20 Above high normal [facility] Lymphocytes# (Auto) 1.20-4.00 Normal (applies to non-nume frank results) [facility] Monocytes# (Auto) 0.00-0.90 Normal (applies to non-numeri c results) [facility] Eosinophils# (Auto) 0.00-0.50 Normal (applies to non-nume frank results) [facility] Basophils# (Auto) 0.00-0.20 Normal (applies to non-numeri c results) [facility] Immature Granulocytes# (Auto) 0.00-7.00 No rmal (applies to non-numeric results) [facility] ID Date Data Source [id number] 04/14/2021 03:02:00 PM EDT [address] CONSULTPATIENT NAME: YARELI HATCH MR#: [id number] PHYSICIAN:AUTHOR: Mai SMITH,P. DATE: RM#: ERPATIENT : 00HistoryAdditional NotesYareli is a 20-year-old single white female with the long history of mentalillness and multiple hospitalization pretty much in most of the psych hospitalin this area. She was recently discharged on Wednesday of last week from here andshe was sent to [facility] she claims she became suicidal after talking to her mother.Patient claims she is transgender. She is in process of becoming a man and shewants to change her name to a male's name such as Myron. Her mother did notlike that because it is the name of someone else in the family. They startedhaving argument back and forth. She started getting angry and became homicidaltowards her mother but denied any plan. She also claims this made her suicidal.So, then she was taken to [facility] in [facility]. While she was in the [facility],she claims she escaped from the hospital at which point a pickup order wasissued then she was brought to [facility] yesterday. I saw her today int ER.In my evaluation today which I conducted with Gloria, practice coordinator and2 students from [facility] I found her to be not hostile, which sheusually is. She gave me the story which I narrated as above. Then I asked herabout whether she has suicidal ideations she stated yes. Regarding the activeplan she stated she does not have an active plan right now, but they aresubject to change, such as she will hang herself, jump in front of the car, oroverdose. Those are the three means she suggested.Diagnosis:Bipolar disorder.Severe borderline personality disorder.Plan:Yareli is the frequent visitor to all the ER and the mental health unit int area demanding to be admitted for her chronic suicidal ideations.Unfortunately, this has been ongoing for her for many years. Currently shestates she is suicidal. We do not have a bed at our unit at this time so, willtransfer her to a comparable facility outside.Portions of this section were scribed by Shell Ariza on 04/14/21 at 1511Past Psych/Medical HistoryAllergiesCoded Allergies:risperidone (08/04/19)Portions of this section were scribed by Shell Ariza on 04/14/21 at 1511DATE SIGNED: 04/14/21 Electronically SignedTIME SIGNED: 1519 BROOK[place] ONEILL MD Name Value Range Interpretation Code Description Data Stephanie rce(s) Supporting Document(s) ID Date Data Source [id number] 04/13/2021 10:06:00 PM EDT [facility] Name Value Range Interpretation Code Description Data Stephanie rce(s) Supporting Document(s) WBC 11.79 x10E3/uL 4.0-10.5 [facility] RBC 4.27 x10E6/uL 4.20-5.40 [facility] Hemoglobin 12.5 g/dL 12.0-16.0 [facility] Hematocrit 37.7 % 37.0-47.0 [facility] MCV 88.3 fL 81.0-99.0 [facility] MCH 29.3 pg 27.0-31.0 [facility] MCHC 33.2 g/dL 32.7-35.6 [facility] RDW 12.4 % 11.5-14.0 [facility] Platelet count 262 x10E3/uL 150-450 [facility] ital MPV 10.3 fl 6.9-9.5 [facility] Neutrophils 75.6 % 34-64 [facility] Lymphocytes 17.2 % 25-45 [facility] Monocytes 5.9 % 1.7-10.6 [facility] Eosinophils 0.6 % 0.4-7.0 [facility] Basophils 0.3 % 0.1-2.0 [facility] Imm. Gran. 0.4 % 0.1-2.0 [facility] Abs. Neutro. 8.92 x10E3/uL 1.2-7.6 [facility] Abs. Lymph. 2.03 x10E3/uL 1.0-3.5 [facility] Abs. Bryan. 0.69 x10E3/uL 0.1-1.0 N [facility] Abs. Eosin. 0.07 x10E3/uL 0.1-0.7 [facility] Abs. Baso. 0.03 x10E3/uL 0.0-0.1 [facility] l Abs. Imm. Gran. 0.05 x10E3/uL 0.0-0.1 [facility] spital ANRBC% 0 % 0 [facility] ID Date Data Source [id number] 04/13/2021 09:38:00 PM EDT [facility] Name Value Range Interpretation Code Description Data Stephanie rce(s) Supporting Document(s) GLU 95 mg/dL 70-110 [facility] Patients taking Sulfasalazine may have f alsely depressedGlucose levels. Patients taking Sulfapyridine may havefalsely elevated Glucose levels. Patients should be drawnfor Glucose before the initial administration of eitherdrug. BUN 14 mg/dL 7-23 [facility] CRE 0.672 mg/dL 0.500-1.300 [facility] GFR > 60 mL/min [facility] CHLORIDE 110 mmol/L 99-110 [facility] NA 141 mmol/L 136-147 [facility] POTASSIUM 4.5 mmol/L 3.5-5.1 [facility] TCO2 23 mmol/L 20-33 [facility] ANION GAP 12.5 10.0-20.0 [facility] CA 8.6 mg/dL 8.3-10.7 [facility] ALKALINE PHOS 125 U/L 45-117 [facility] TP 8.0 g/dL 6.0-7.8 [facility] ALB 3.6 g/dL 3.5-5.0 [facility] ESRD Dialysis patient Albumin reference range: 2.9-4.4 g/dL GL 4.4 g/dL 2.3-3.5 [facility] A/G 0.8 1.0-2.5 [facility] T. BILIRUBIN 0.3 mg/dL 0.1-1.1 [facility] [place] Total Bilirubin is n ot recommended forpatients undergoing treatment with eltrombopag (Promacta)due to the potential for falsely elevated results. ALTI 51 U/L 6-54 [facility] Patients taking Sulfasalazine and/or Sul fapyridine may havefalsely depressed ALT levels. Patients should be drawn forALT before the initial administration of either drug. AST 32 U/L 6-38 [facility] Patients taking Sulfasalazine and/or Sul fapyridine may havefalsely depressed AST levels. Patients should be drawn forAST before the initial administration of either drug. ID Date Data Source [id number] 04/13/2021 09:38:00 PM EDT [facility] Name Value Range Interpretation Code Description Data Stephanie rce(s) Supporting Document(s) SALICYLATE < 1.7 mg/dL 0.0-20.0 [facility] ID Date Data Source [id number] 04/13/2021 09:38:00 PM EDT [facility] Name Value Range Interpretation Code Description Data Stephanie rce(s) Supporting Document(s) ACETAMINOPHEN < 2.0 ug/mL 0-30 [facility] ID Date Data Source [id number] 04/13/2021 09:38:00 PM EDT [facility] Name Value Range Interpretation Code Description Data Stephanie rce(s) Supporting Document(s) ETOH 0.007 g/dL NONE DETECTED [facility] ID Date Data Source [id number] 04/13/2021 08:47:00 PM EDT [facility] Name Value Range Interpretation Code Description Data Stephanie rce(s) Supporting Document(s) LCOVID-19, CORDELL NEGATIVE [facility] This lab was ordered by [facility] and reported by [facility]. ID Date Data Source [id number] 04/13/2021 09:21:00 PM EDT [facility] Name Value Range Interpretation Code Description Data Stephanie rce(s) Supporting Document(s) COVID-19, CORDELL NEGATIVE NEGATIVE [facility] Methodology: Isothermal Nucleic Acid Amp lification for thetargeted qualitative detection of SARS-CoV-2 viral nucleicacids. Negative results should be treated as presumptive and, ifinconsistent with clinical signs and symptoms or necessaryfor patient management, should be tested with differentauthorized or cleared molecular tests. Negative results donot preclude SARS-CoV-2 infection and should not be used asthe sole basis for patient management decisions. Negativeresults should be considered in the context of a patient'srecent exposures history and the presence of clinical signsand symptoms consistent with COVID-19.The ID NOW COVID-19 test is only for use under the Food andDrug Administration's Emergency Use Authorization. ID Date Data Source [id number] 04/13/2021 09:48:00 PM EDT [facility] Name Value Range Interpretation Code Description Data Stephanie rce(s) Supporting Document(s) PCP VISTA NEG NEGATIVE [facility] MINIMUM LEVEL OF DETECTION IS 25 ng/ml BENZODIAZEPINES NEG NEGATIVE [facility] MINIMUM LEVEL OF DETECTION IS 200 ng/ml COCAINE VISTA NEG NEGATIVE [facility] MINIMUM LEVEL OF DETECTION IS 300 ng/ml AMPHETAMINES NEG NEGATIVE [facility] MINIMUM LEVEL OF DETECTION IS 1000 ng/ml BARBITURATES NEG NEGATIVE [facility] CUTOFF CONCENTRATION IS 200 ng/ml CANNABINOIDS NEG NEGATIVE [facility] CUTOFF CONCENTRATION IS 50 ng/ml METHADONE VISTA NEG NEGATIVE N [facility] MINIMUM LEVEL OF DETECTION IS 300 ng/ml OPIATE VISTA NEG NEGATIVE [facility] MINIMUM DETECTION LEVEL IS 300 ng/ml ID Date Data Source [id number] 04/13/2021 09:38:00 PM EDT [facility] Name Value Range Interpretation Code Description Data Stephanie rce(s) Supporting Document(s) URINE COLOR Yellow [facility] UAPR Turbid [facility] UGLU Negative NEGATIVE [facility] URINE BILIRUBIN Negative NEGATIVE [facility] UKET Negative NEGATIVE [facility] USG 1.017 1.010-1.025 [facility] UBLO Negative NEGATIVE [facility] UpH 7.5 5.0-8.0 [facility] UPRO Negative Negative [facility] UUB 1.0 mg/dL 0.2-1.0 [facility] UNIT Negative Negative [facility] ULEU Trace Negative [facility] ID Date Data Source [id number] 04/13/2021 09:38:00 PM EDT [facility] Name Value Range Interpretation Code Description Data Stephanie rce(s) Supporting Document(s) URINE RBC 0-2 RBCs/HPF NONE SEEN [facility] URINE WBC 0-2 WBCs/HPF NONE SEEN [facility] URINE BACTERIA Few NONE SEEN [facility] URINE EPI. Many NONE SEEN [facility] URINE CRYSTAL MANY AMORPHOUS NONE SEEN [facility] pital ID Date Data Source [id number] 04/13/2021 09:38:00 PM EDT [facility] Name Value Range Interpretation Code Description Data Stephanie rce(s) Supporting Document(s) HCG QUAL URINE Negative Negative [facility] ID Date Data Source [id number] 04/14/2021 04:43:00 PM EDT [facility] Physician DocumentationClaxlexy-Naveen Hinkle edical CenterName: Yareli DuvallAge: 20 yrsSex: FemaleDOB: 2000MRN: [id number] Date: 04/13/2021Time: 20:28Account#: [id number] 1Private MD: NONE, - Per PatientED Physician Santiago RajanDisposition Summary:04/14/21 16:06Discharge OrderedLocation: Home Self Kjgrxg1Jxuwbah: auhsnfjin7Fjmjydsx: are yaitvlqjkxv1Tbiefgyrw: Jtfqirvq8Rddsfvcrn- Major depressive disorder, recurrent, oalbgwaafmjoc1Fbggzmqb:rf2- With: Private Physician- When: 2 - 3 days- Reason: Recheck today's complaints, Continuance of careDischarge Instructions:- Discharge Summary Mvnssbb64- XDNLWJOVPSix2Guukj:- Medication Reconciliationrf2- Medication Reconciliation Form - [address] [place], [place] [address]HPI:04/320:42 This 20 yrs old White Female presents to ER via Police with complaints ofPsych Problem.th420:42 Associated signs and symptoms: Pertinent negatives: abdominal pain, chestpain, fever, zg3yabueyym, nausea, shortness of breath, vomiting. [facility] Patient is well-known to the ER. She has been seenmany timesin the past for the same. She was last here on April 09 and was admitted atthattime. Patient [facility] last[facility] ideation. She reports that she escaped today and the policebrought herhere. She has no plan. She has attempted suicide in the past by overdose. Sheisfeeling depressed and anxious. Denies any homicidal ideation or hallucinations.She hasnot been taking her medications regularly. She denies any other problems or anyothercomplaints..Historical:- Allergies: Haldol; RISPERIDONE;- Home Meds:1. aripiprazole 10 mg oral tablet 1 tab daily2. aripiprazole 400 mg intramuscular suspension,extended release syringe 400 sxjawlf01 days3. ibuprofen 400 mg Oral tablet 1 tab every 6 hours as needed4. loratadine 10 mg oral tablet 1 tab daily5. montelukast 10 mg oral tablet 1 tab daily6. prazosin 2 mg Oral capsule 1 cap every day at bedtime7. propranolol 10 mg Oral tablet 1 tab 2 times per day8. sertraline 50 mg oral tablet 1 tab take for 2 days9. topiramate 75mg oral tablet daily10. Zyprexa 5 mg Oral tablet 1 tab nightly- PMHx: ADHD; ANXIETY; BIPOLAR DISORDER; Depressive d isorder; ptsd;- PSHx: None;- Immunization history: Flu vaccine is not up to date.- Social history: Smoking status: Patient uses tobacco products, current everydaysmoker. Patient/guardian denies using street drugs, IV drugs, ETOH statusDenies useof ETOH.- Advance Directives:: None.ROS:20:44 Constitutional: Negative for fever. Eyes: Negative for acute changes.ENT: Negative for wz8nrqpt discharge, rhinorrhea, sinus congestion. Neck: Negative for acutechanges.Cardiovascular: Negative for chest pain. Respiratory: Negative for shortness ofbreath.Abdomen/GI: Negative for abdominal pain, nausea, vomiting, d iarrhea. Back:Negative foracute changes. : Negative for acute changes. MS/extremity: Negative for acutechanges. Skin: Negative for acute changes. Neuro: Negative for headache,weakness.Psych: Positive for anxiety, depression, suicidal ideation, Negative forauditoryhallucinations, visual hallucinations, homicidal ideation, suicide gesture.Exam:20:44 Constitutional: This is a well developed, well nourished patient who isawake, alert, th4and in no acute distress. Head/Face: Normocephalic, atraumatic.20:44 Eyes: Periorbital structures: appear normal, Pupils: equal, round, andreactive tolight, Extrao cular movements: intact throughout.20:44 ENT: Mouth: Oral mucosa: moist, Voice: is normal.20:44 Neck: External neck: is normal, ROM/movement: is normal, is supple.20:44 Cardiovascular: Rate: normal, Rhythm: regular, Heart sounds: normal,normal S1and S2,no murmur.20:44 Respiratory: the patient does not display signs of respiratory distress,Respirations:normal, Breath sounds: are normal, clear throughout.20:44 Abdomen/GI: Bowel sounds: normal, Palpation: abdomen is soft andnon-tender, in allquadrants.20:44 Back: pain, is absent, ROM is normal.20:44 Musculoskeletal/extremity: Extremities: no acute changes.20:44 Skin: Appearance: Color: normal in color, Temperature: warm, Moisture:dry.20:44 Neuro: Orientation: is normal, Mentation: is normal.20:44 Psych: Behavior/mood is pleasant, cooperative, suicidal, depressed,Affect is calm,Oriented to person, place, time, Patient having thoughts of suicide. Deniessuicidalplan. Judgement / Insight is impaired. Delusions/hallucinations are notpresent.Vital Signs:20:32 BP 117 / 87; Pulse 84; Resp 18; Temp 98.1; Pulse Ox 97% ;kk223:48 Pain 3/10;jw523:50 Weight 149.69 kg; Height 5 ft. 6 in. ;jw510/0411:45 Pain 0/10;ef116:43 BP 132 / 57; Pulse 80; Resp 18; Temp 98.4; Pulse Ox 97% ; Pain 0/10;tlm10/0323:50 Body Mass Index 53.26 (149.69 kg, 167.64 cm)jw523:48 Pain Scale: Zjqbwyj564/0411:45 Pain Scale: Llesalq053:43 Pain Scale: AdulttlmMDM:04/320:34 Patient medically screened.th410/0406:41 Data reviewed: vital signs, nurses notes, lab test result(s). ED course:Patient ym0wwckzozh stable in the ER. Patient here for mental health evaluation as above.Case isendorsed to Dr. Rajan at change of shift pending PSA evaluation disposition.Patient ismedically clear and has been cooperative..07:32 Data reviewed: lab test result(s), CBC, drug level(s), acetaminophen,alcohol, pv5zthikfxmpe, electrolytes, hepatic panel, urinalysis, urine drug screen,COVID-19.Transition of care: Care assumed from Nils Argueta MD.16:06 ED course: Patient being recommended for discharge home by Dr. Patten with adiagnosis of ka8yvcwgkozuc.04/320:39 Order name: Acetaminophen Level; Complete Time: :13ho568:39 Order name: CBC with diff; Complete Time: 07:39ne995/0407:33 Interpretation: Abnormal: WBC 11.79; Mild leukocytosis.:39 Order name: CMP; Complete Time: 21:39fo0350:39 Order name: COVID-19 PROFILE+LAB; Complete Time: 21:89bv279/0320:39 Order name: ETOH; Complete Time: ::39 Order name: Glucose; Complete Time: 07:45fj168/0407:32 Interpretation: Within normal limits.rf0:39 Order name: Salicylate Level; Complete Time: 21:94wq4330:39 Order name: Triage - Drug Screen; Complete Time: 21:65fi005/0320:39 Order name: UA; Complete Time: 21:85sy185/0320:39 Order name: Urine HCG Qualitative; Complete Time: 21:45fw696:39 Order name: Diet - Mental Health Tray (call dietary); Complete Time:23:49 0:39 Order name: Belongings List; Complete Time: 05:91ea7120:39 Order name: Document Weight and Height for BMI; Complete Time: 23:0:39 Order name: Mental Health Evaluation; Complete Time: 23:0:39 Order name: Mental Health Level 3; Complete Time: 23:0:39 Order name: VS q shift; Complete Time: 23:1:49 Order name: Medically Cleared for Eval by-Psychosocial, Ios Architect (YE)ry5Nxcfmcebj Medications:04/322:16 Drug: Ibuprofen 600 mg [ibuprofen 600 mg tablet (1 tabs)] Route: PO;kk223:48 Follow up: Pain 09/18 Hbdqkzb747/0410:16 Drug: Propranolol 10 mg Route: PO;ef110:46 Follow up: Response: No adverse zljxlinfhu573:16 Drug: sertraline 50 mg Route: PO;ef110:46 Follow up: Response: No adverse bxqwknumwm707:16 Drug: Topiramate 75 mg Route: PO;ef110:45 Follow up: Response: No adverse kcxavjjcvw648:16 Drug: Loratadine 10 mg Route: PO;ef110:45 Follow up: Response: No adverse htgbvgyjwc725:17 Drug: ARIPiprazole 10 mg Route: PO;ef110:46 Follow up: Response: No adverse ogdkqcahtp386:45 Drug: Acetaminophen Tablet 650 mg Route: PO;ef111:45 Follow up: Pain 0/10 Tbklrxp1Vnzyoebsuh:Disp Zakia Buchanan RN RN py7WopzkglNils Argueta MD MD xq4JkbukFortunato humphrey RN RN mk2UaqtzyfyAmi arthur RN RN xq3Upahb, MD SARAH Henderson rf2 Name Value Range Interpretation Code Description Data Stephanie rce(s) Supporting Document(s) ID Date Data Source [id number] 04/14/2021 04:43:00 PM EDT [facility]ClGr[facility] terName: Yareli DuvallAge: 20 yrsSex: FemaleDOB: 2000MRN: [id number] Date: 04/13/2021Time: 20:28Account#: [id number] 1Priash MD: NONE, - Per PatientDiagnosis: Major depressive disorder, recurrent, unspecifiedPresentation:04/320:29 Presenting complaint: Patient states: Was at [facility] ideation. pn7Dbmteaw to this ED by [facility]. Patient reports that she escaped from the [facility]. International Travel Fever No. Coronavirus Screening: Have you beendiagnosed with COVID-19 in the past 30 days? no Are you currently on quarantinebyPublic Health? no Flu-like symptoms reported in the last 14 days: no. Have youhadclose contact with confirmed or suspected COVID-19 case? no Do you live in asettingwhere a large of amount of people live, such as residential, family care,usp, etc?yes. Have you traveled to a location with widespread or ongoing COVID-19communityspread or outside of [facility]? no Have you traveled internationally or hadcontact withsomeone that has traveled and has been ill in the past 3 weeks? no Have youreceivedthe COVID vaccine? Yes Sophia x 1 dose. Communicable Disease Screen: Negativeforfever>/= 100 degrees Fahrenheit. Communicable disease screen is negative. (-)rash orunusual skin lesion (-) travel/contact with traveler (-) respiratory symptoms.Communication Speaks Cymro? Yes, is preferred language.20:29 Acuity: Triage 8pk820:29 Method Of Arrival: Jkjdecjl360:30 Acuity Assignment: Triage 9lr2Buvucx Assessment:20:31 General: Appears in no apparent distress, Behavior is cooperative. Sepsi sScreening: kk2(1)Signs/symptoms infection No. Pain: Denies pain. PSS-3 Now I'm going to askyou somequestions that we ask everyone treated here, no matter what problem they arehere for.It is part of the hospital's policy and it helps us to make sure we are notmissinganything important. Over the past 2 weeks, have you felt down, depressed, orhopeless?Yes. Exhibiting depressed mood. Positive screen for depression, MD provideraware ofpositive screening. Education provided. Over the past 2 weeks, have hadthoughts ofkilling yourself? Yes, with current ideation. Active Suicidal Ideation (SI).Positivescreen for suicide risk. MD provider aware of positive screening, suicideprecautionsimplemented. ESS-6 ordered. In your lifetime, have you ever attempted to killyourself?Yes, Between 1 and 6 months ago. Exhibits Lifetime Suicide Attempt (SA).Positivescreen for suicide risk. MD provider aware, suicide precautions implemented.ESS-6ordered. Neuro: Level of Consciousness is awake, alert, Oriented to person,place,time. Cardiovascular: Chest pain is denied. Respiratory: No deficits noted.Historical:- Allergies: Haldol; RISPERIDONE;- Home Meds:1. aripiprazole 10 mg oral tablet 1 tab daily2. aripiprazole 400 mg intramuscular suspension,extended release syringe 400 dlqerso22 days3. ibuprofen 400 mg Oral tablet 1 tab every 6 hours as needed4. loratadine 10 mg oral tablet 1 tab daily5. montelukast 10 mg oral tablet 1 tab daily6. prazosin 2 mg Oral capsule 1 cap every day at bedtime7. propranolol 10 mg Oral tablet 1 tab 2 times per day8. sertraline 50 mg oral tablet 1 tab take for 2 days9. topiramate 75mg oral tablet daily10. Zyprexa 5 mg Oral tablet 1 tab nightly- PMHx: ADHD; ANXIETY; BIPOLAR DISORDER; Depressive disorder; ptsd;- PSHx: None;- Immunization history: Flu vaccine is not up to date.- Social history: Smoking status: Patient uses tobacco products, current everydaysmoker. Patient/guardian denies using street drugs, IV drugs, ETOH statusDenies useof ETOH.- Advance Directives:: None.Screenin:50 Abuse screen: Denies threats or abuse. Denies injuries from another.Nutritional bn8xvcwlqxjc: No deficits noted. Offer of HIV testing: patient was previouslyofferedscreening. Fall Risk None identified.Assessment:20:49 General: see triage assessment.kk222:23 Reassessment: patient hitting head on wall, states that we can't doanything to help kk2her because she can't cope without her music. Patient states she already triedcoloring, declined medication, declined any other help with coping. c/o pain inleftleg with no hx of injury. aware, ibuprofen ordered and given. .23:48 Reassessment: Patient appears in no apparent distress at this time.jw510/0401:37 Reassessment: Patient appears in no apparent distress at this time.jw503:19 Reassessment: Patient appears in no apparent distress at this time.jw505:09 Reassessment: Patient appears in no apparent distress at this time.jw507:21 Reassessment: No changes from previously documented assessment.ef108:16 Reassessment: Patient appears in no apparent distress at this time.ef110:17 Reassessment: Patient appears in no apparent distress at this time.xi3Epvrszprmhvg:04/322:01 Mental health consult is initiated at 22:01.sm822:12 SAFE Act Report Not Completed. Intervention: Observation Level 3.Referral Information: sz4Tttbllbohq referral is generated by a police agency: [facility]. The patient wasreferred forevaluation because suicidal ideations.22:23 Subjective: The patients chief complaint is Pt [facility] co8ggxggyskt. As PSA was going into her room pt was tapping her head off the wall.Pt wasdischarged from our unit on Wednesday (04/11), [facility]. [facility]. Patient remainssuicidalideations with no plan. Pt reports that she is also homicidal towards hermother. Shestates that she has no direct plan but states that if she could get her handson hershe would kill her anyway. Pt reports that she was going by the name Rigobutchanged it to Daisy Sanches. She states that she changed it on her facebook andher mothergot mad at her. She states that her mother got mad because two of her familymembersnames are Myron and the mother had told her that she is too immature whichcaused thept to feel homicidal towards her. Pt has a [facility]. She has a history of Anxiety, Bipolar, Depression, andBPD. Pt hasa history of reported suicide attempts by overdosing. Pt denies hallucinations.Pt doesnot present with any delusional thoughts. Delusions are denied, Hallucinationsaredenied. Patient's mood is depressed, Having thoughts of suicide. Deniessuicidal plan.homicide: denies plan. Homicidal thoughts directed towards mother.22:30 Narrative PSA spoke to Dulce at [facility] ([phone]). She states that itis "the same sm8old thing" as to why the pt is in the ED. She states that the pt was dischargedfromour unit then went to [facility] for suicidal ideations. She states that thept madeit back to them in scrubs and stated that she asked [facility] what wouldhappen if shewalked out which they told her that they would have to call the police. Policethenshowed up at [facility] and brought her to us.22:33 Patient reports history of anxiety, Bipolar Disorder, Depression, self-mutilation, pc6atalycm attempt: pt reports multiple by overdosing Mental Health Admissions:multipletimes at multiple facilities Current Outpatient Mental Health Services[facility] [place] Living Environment: Family / HomeSupport[facility]. The patient is single. Detox /RehabAdmissions: None. Current Outpt Alcohol or Substance Abuse Services: None.22:34 Patient presents to Emergency Department with the following symptomswithin the past 2 fs6zvosp: suicidal ideation with no plan. Patient presents to Emergency Departmentwiththe following symptoms within the past 2 weeks: Homicidal ideation towardmother.Objective: Objective: Patient is using poor eye contact, Speech is normal.Affect isflat. Mental status exam: Patients appearance is unkempt, Patient's behavior isSpeechis normal. Affect is flat. Mood is appropriate. Perception is normal. Appetiteisnormal. Memory is good. Energy level is normal. Content of thought is normal.ThoughtProcess is intact. Cognitive level is Oriented to person,place and time.Insight /Judgment is poor. Rapport with interviewer is good. Suicidal Ideation: Vague.HomicidalIdeation: Vague. towards her mother.22:44 Notification to family of patient status is not currently needed orappropriate. by8Xetiemlggpzw: Psych MD informed of patient's status at 22:30, ED MD notified ofpatients status at 22:46. Disposition: Medically cleared for disposition by Meet.Psychiatric Consult is performed by phone with Dr David Little The patientis to betransferred to bed availability facility. Legal Status: Patient's legal statuswi beDirectory of [facility] Services: 9.37. Commitment papers are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 swelling, or masses, exudates, or evidenceofobstruction, uvula midline. Mucous membranes moist. Cardiovascular: Regularrate andrhythm with a normal S1 and S2. No gallops, murmurs, or rubs. Normal PMI, noJVD. Nopulse deficits. Respiratory: Lungs have equal breath sounds bilaterally, cleartoauscultation and percussion. No rales, rhonchi or wheezes noted. No increasedwork ofbreathing, no retractions or nasal flaring. Abdomen/GI: Soft, non-tender, withnormalbowel sounds. No distension. No guarding or rebound. No evidence oftendernessthroughout. Skin: Warm, dry with normal turgor. Normal color with no rashes,nolesions, and no evidence of cellulitis. MS/ Extremity: Pulses equal, nocyanosis.Neurovascular intact. Full, normal range of motion. Neuro: Awake and alert,GCS 15,oriented to person, place, time, and situation. Cranial nerves iii-XII grosslyintact.07:20 Psych: Behavior/mood is pleasant, cooperative, Affect is calm, Orientedto person,place, time, Patient having thoughts of suicide. Plan for suicide is HangingVital Signs:03/2822:31 BP 128 / 73; Pulse 77; Resp 18; Temp 97.3; Pulse Ox 98% on R/A; Scovfv199.33 kg (R); sz6Hrbaai 5 ft. 6 in. ; Pain 0/10;03/2908:38 BP 123 / 77; Pulse 66; Resp 18; Temp 97(TE); Pulse Ox 98% on R/A;sw215:20 BP 126 / 70 (auto/); Pulse 70 MON; Pul se Ox 97% ;ef109/2821:31 Body Mass Index 37.12 (104.33 kg, 167.64 cm)kk309/2821:31 Pain Scale: Dtawrlc6CXP:03/2822:45 Patient medically screened.br6:53 Transition of care: Care assumed from Zeeshan Grover MD.rf206:54 Data reviewed: vital signs, nurses notes, lab test result(s), CBC, druglevel(s), fw6dtvwwgkvmxpjs, alcohol, salicylate, electrolytes, hepatic panel, urinalysis,urine drugscreen. ED course: Patient is medically cleared and pending PSA evaluation.03/2822:38 Order name: Acetaminophen Level; Complete Time: 06:00gl383:38 Order name: CBC with diff; Complete Time: 06:12hb7022821:38 Order name: CMP; Complete Time: 06::38 Order name: COVID-19 PROFILE+LAB; Complete Time: 08::38 Order name: ETOH; Complete Time: 06:36jk175:38 Order name: Glucose; Complete Time: ::53 Interpretation: Within normal limits.rf/2822:38 Order name: Salicylate Level; Complete Time: 06::38 Order name: Triage - Drug Screen; Complete Time: 06::38 Order name: UA; Complete Time: ::38 Order name: Urine HCG Qualitative; Complete Time: 06::38 Order name: Diet - Mental Health Tray (call dietary); Complete Time:00::38 Order name: Belongings List; Complete Time: 15::38 Order name: Document Weight and Height for BMI; Complete Time: 00::38 Order name: Mental Health Evaluation; Complete Time: ::38 Order name: Mental Health Level 3; Complete Time: ::38 Order name: VS q shift; Complete Time: 00::54 Order name: Medically Cleared for Eval by-Psychosocial, Ios Architect (.PSA);Complete Time: rf213:27Dispensed Medications:08:37 Drug: sertraline 50 mg [sertraline 50 mg tablet (1 tabs)] Route: PO;215:21 Follow up: Response: No adverse hjkdluqnzj458:37 Drug: Topiramate 75 mg [topiramate 25 mg tablet (3 tabs)] Route: PO;215:21 Follow up: Response: No adverse ytgxclbnxj538:38 Drug: ARIPiprazole 10 mg [aripiprazole 10 mg tablet (1 tabs)] Route: PO;215:22 Follow up: Response: No adverse :38 Drug: Loratadine 10 mg [loratadine 10 mg tablet (1 tabs)] Route: PO;215:21 Follow up: Response: No adverse itcijnpqyg688:38 Drug: Montelukast 10 mg Route: PO;215:21 Follow up: Response: No adverse :38 Drug: Propranolol 10 mg [propranolol 10 mg tablet (1 tabs)] Route: PO;215:21 Follow up: Response: No adverse roman asftrml8Exsjbohngn:Dispatcher Fortunato Stanley RN RN ii7IrnotonZeeshan Grover MD MD brKelly, Krista RN RN mp2BncfOlivia Barros RN RN zc0OdfutSantiago Rajan MD MD zd2RbovftecAmi arthur RN es3Kjfftgydilu: (The following items were deleted from the chart)01:16 04/08 22:33 Home Meds: Lexapro 10 mg Oral tablet 1 tab nightly; kk3kk3 Name Value Range Interpretation Code Description Data Stephanie rce(s) Supporting Document(s) ID Date Data Source [id number] 04/09/2021 04:09:00 PM EDT [facility]Name: Yareli DuvallAge: 20 yrsSex: FemaleDOB: 2000MRN: [id number] Date: 04/08/2021Time: 22:26Account#: [id number] Jitendra SMITH: NONE, - Per PatientDiagnosis: Major depressive disorder, recurrent, unspecifiedPresentation:03/2822:28 Presenting complaint: Patient states: "I am having suicidal thoughts andanxiety.". yg8Mjxctnflxyg Screening: Have you been diagnosed with COVID-19 in the past 30days? noAre you currently on quarantine by Public Health? no Flu-like symptoms reportedin thelast 14 days: no. Have you had close contact with confirmed or suspectedCOVID-19 case?no Do you live in a setting where a large of amount of people live, such [place], family care, usp, etc? no. Have you traveled to a location withwidespread orongoing COVID-19 community spread or outside of [facility]? no Have you traveledinternationally or had contact with someone that has traveled and has been illin thepast 3 weeks? no Have you received the COVID vaccine? Yes. Communication SpeaksEnglish? Yes, is preferred language. Language Line Services needed? No Are TDDneeded?No. Best learning method: discussion. Learning barriers: none identified.22:28 Acuity: Triage 4lu845:28 Method Of Arrival: Ctozamnx118:29 Presenting complaint: [facility][id number] from [facility] states patient madesuicidal cb9ihwyfmclcf and called police to be brought in.22:30 Acuity Assignment: Triage 4nw123:50 International Travel Fever No. Communicable Disease Screen: Negative forfever>/= 100 bl6loplxog Fahrenheit. Communicable disease screen is negative. (-) rash orunusual skinlesion (-) travel/contact with traveler (-) respiratory symptoms.Triage Assessment:22:34 General: Appears in no apparent distress, well nourished, well groomed,Behavior is xa9kpffmba, appropriate for age, cooperative, Denies fever, chills. General:patientstates she plans on commiting suicide by either jumping in front of a car orhangingherself. Sepsis Screening: (1)Signs/symptoms infection Sepsis is not suspected.Pain:Denies pain. PSS-3 Now I'm going to ask you some questions that we ask everyonetreatedhere, no matter what problem they are here for. It is part of the hospital'spolicy andit helps us to make sure we are not missing anything important. Over the past 2weeks,have you felt down, depressed, or hopeless? Yes. Exhibiting depressed mood.Positivescreen for depression, MD provider aware of positive screening. Educationprovided.Over the past 2 weeks, have had thoughts of killing yourself? Yes, with currentideation. Active Suicidal Ideation (SI). Positive screen for suicide risk. MDprovideraware of positive screening, suicide precautions implemented. ESS-6 ordered. Inyourlifetime, have you ever attempted to kill yourself? Yes, More than 6 monthsago.Provider notified. Derm: Skin is pink, warm & dry. Neuro: Level ofConsciousness isawake, alert, Oriented to person, place, time, Denies weakness blurred visiondizziness. Respiratory: Airway is patent Respiratory effort is even, unlabored,Respiratory pattern is regular, symmetrical, Denies cough, shortness of breathlaboredbreathing. GI: Reports normal bowel habits, tolerance of fluids, tolerance offood,Denies diarrhea, nausea, pain, vomiting. : Denies burning with urination,crampingdischarge, inability to void, incontinence, pain urinary frequency, urgency.Musculoskeletal: Circulation, motion, and sensation intact.ARNP:22:31 LMP 02/20212656gv3Gcvzzhfwlp:- Allergies: Haldol; Risperdal;- Home Meds:1. prazosin 2 mg Oral capsule 1 cap every day at bedtime2. Zyprexa 5 mg Oral tablet 1 tab nightly3. montelukast 10 mg oral tablet 1 tab daily4. topiramate 75mg oral tablet daily5. aripiprazole 10 mg oral tablet 1 tab daily6. aripiprazole 400 mg intramuscular suspension,extended release syringe 400 ycqlwbd13 days7. sertraline 50 mg oral tablet 1 tab take for 2 days8. sertraline 50 mg oral tablet 2 tabs take for 3 days9. propranolol 10 mg Oral tablet 1 tab 2 times per day10. loratadine 10 mg oral tablet 1 tab daily11. ibuprofen 400 mg Oral tablet 1 tab every 6 hours as needed- PMHx: ADHD; ANXIETY; BIPOLAR DISORDER; Depressive disorder; ptsd;- PSHx: None;- Immunization history: Flu vaccine is not up to date. Patient has never beenvaccinated.- Social history: Smoking status: Patient uses tobacco products, current everydaysmoker. Patient/guardian denies using street drugs, IV drugs, ETOH statusDenies useof ETOH.- Advance Directives:: None.Screenin03/2900:00 Abuse screen: Denies threats or abuse. Denies injuries from another.Nutritional xm0hvjgpvnzw: No deficits noted. Offer of HIV testing: patient was previouslyofferedscreening. Fall Risk None identified.Assessment:03/2822:37 Reassessment: see triage assessment by this insurance writer.kk323:59 Reassessment: Patient appears in no apparent distress at this time.jw509/2900:52 Reassessment: Patient appears in no apparent distress at this time.kk302:19 Reassessment: No changes from previously documented assessment.jw503:49 Reassessment: No changes from previously documented assessment.jw505:06 Reassessment: No changes from previously documented assessment.jw506:34 Reassessment: No changes from previously documented assessment.jw508:29 Reassessment: Patient appears in no apparent distress at this time. Nochanges from rh5wpfecpvgpe documented assessment. Sitter at bedside. .09:59 Reassessment: Patient appears in no apparent distress at this time. Nochanges from nu3rrpoxzokst documented assessment. Patient sleeping in bed. Sitter at bedside. .10:57 Reassessment: Patient appears in no apparent distress at this time. Nochanges from tv9kwxmabohmc documented assessment. Patient sleeping. Sitter at bedside. .Psychosocial:04:52 Narrative PSA spoke to Dulce at [facility] ([phone]) who states that thepatient was fd9yuop all day. She states that she was in the office hanging out like sheusually doeswhen she suddenly got up and went outside. Another staff went to check on herand askedwhat she was doing. Patient said that she called police and was waiting for aride. Shestates when the police arrived, she told the officers that she was suicidalwith theplan to jump in front of a car.05:01 Mental health consult is initiated at 05:01.sm805:08 SAFE Act Report Not Completed. Interventi on: Observation Level 3.Referral Information: gq5Tpzntrhxkz referral is generated by a police agency: [employer]. The patient wasreferred forevaluation because patient had voiced suicidal ideations.05:09 Subjective: The patients chief complaint is Pt presents to the ED by [employer].Patient jt9ynqqzqu feeling suicidal for "a while" now and had called the police herself.Shestates that she is still currently suicidal with the plan to jump in front of acar. Ptwas just discharged from out mental health unit on the . She has anexcessiveamounts of admissions for mental health at several facilities. She has ahistory ofAnxiety, Bipolar, Depression, and Borderline Personality Disorder. She reportsthatsometimes she misses her medications. Pt reports multiple suicide attempts byoverdose.Pt denies HI and hallucinations. Pt does not present with any delusionalthoughts.Delusions are denied, Hallucinations are denied. Patient's mood is depressed,Havingthoughts of suicide. Plan for suicide is to jump in front of a car.05:14 Patient reports history of anxiety, Bipolar Disorder, Depression, self-mutilation, vx1Glyfa: [employer]. Mental Health Admissions: several. pt was last at [facility] 04/01/21 anddischarged 04/03 Current Outpatient Mental Health Services[facility] [place] Living Environment: Family / Home Support: poorThepatient currently lives in a [facility] residence. The patient is single. Detox /RehabAdmissions: None. Current Outpt Alcohol or Substance Abuse Services: None.05:16 Patient presents to Emergency Department with the following symptomswithin the past 2 wg4lnkgy: suicidal ideation with plan for jump in front of a car. Objective:Patient iscooperative, Speech is normal. Affect is flat. Mental status exam: Patientsappearanceis unkempt, Patient's behavior is normal, Speech is normal. Affect is flat.Mood isdepressed. Perception is normal. Appetite is normal. Memory is good. Energylevel isnormal. Content of thought is normal. Thought Process is intact. Cognitivelevel isOriented to person,place and time. Insight / Judgment is poor. Rapport withintervieweris good. Suicidal Ideation: Plan is jump in front of a car. Homicidal Ideation:Denies.06:34 Notification to family of patient status is not currently needed orappropriate. yk4Fefvuevajquz: Psych MD informed of patient's status at 06:00, ED MD notified ofpatients status at 06:34. Disposition: Medically cleared for disposition by [facility].Psychiatric Consult is performed by phone with Dr David STEVENS. DSM-V DX [place] Idiagnosis:Depression, Unspecified. Insurance Pre-Certification: Not Required. IMHUAdmissionCriteria: The patient has had a suicide attempt in the recent past. The patientrequires continuous observation and/or control to protect self, others orproperty. Thepatient's care requires a multi-modal dieudonne tment plan under close supervisionandcoordination due to the complexity and severity of the patient's symptoms. Thepatientrequires administration and monitoring of psychoactive medications by skilledmedicalproviders due to the side effects of the psychoactive medications orsignificant dosageadjustments. Awaiting. The patient is not a cashier self service gasoline or militarydependent.[place] Suicide Severity Rating Scale: Suicidal Ideation Rating 5; IntensityofIdeations Rating 25; Suicidal Behavior Rating 0.Psych:00:00 Subjective: Patient's mood is elevated, Delusions are denied,Hallucinations are denied gt1Sqoujn thoughts of suicide. Denies suicidal plan. Objective: Patient iscooperative,Speech is normal, Affect is flat. Interventions: Removed personal items andplaced inbag. Patient placed in hospital gown. Searched person for dangerous items.Urinecollected and sent for urine drug test. Observation Level Level 3 Sitterneeded.Provider notified. Zeeshan Grover MD Charge nurse notified. Fortunato Mark RNLevel 3order placed.Vital Signs:03/2822:31 BP 128 / 73; Pulse 77; Resp 18; Temp 97.3; Pulse Ox 98% on R/A; Szxqvk008.33 kg (R); yo0Xiulle 5 ft. 6 in. ; Pain 0/10;03/2908:38 BP 123 / 77; Pulse 66; Resp 18; Temp 97(TE); Pulse Ox 98% on R/A;sw215:20 BP 126 / 70 (auto/); Pulse 70 MON; Pulse Ox 97% ;ef109/2822:31 Body Mass Index 37.12 (104.33 kg, 167.64 cm)kk309/2822:31 Pain Scale: Hsiduqk5OM Course:03/2822:27 Patient arrived in ED.kk322:27 NONE, - Per Patient is Private Physician.kk322:30 Triage completed.kk322:39 Ratna Barbosa, RN is Primary Nurse.kk322:45 Zeeshan Grover MD is Attending Physician.br23:59 Primary Nurse role handed off by Ratna Barbosa, NWwy042:59 Fortunato Mark, JOSE LUIS is Primary Nurse.jw509/2900:00 Patient has correct armband on for positive identification. Bed in lowposition. Sitter jw5at bedside.00:00 No Physician assisted procedures completed.jw502:19 Sitter at bedside.jw503:49 Sitter at bedside.jw505:06 Sitter at bedside.jw506:34 Sitter at bedside.jw506:50 Attending Physician role handed off by Zeeshan Grover, SRdd605:50 Santiago Rajan MD is Attending Physician.rf206:59 Attending Physician role handed off by Santiago Rajan MDbr06:59 Zeeshan Grover MD is Attending Physician.br07:22 Attending Physician role handed off by Zeeshan Grover, UTsa750:22 Santiago Rajan MD is Attending Physician.rf212:48 Brooklyn Oneill MD is Hospitalizing Provider.rf214:54 Primary Nurse role handed off by Fortunato Mark RNDGgt0Ttxyufhzsmlb Medications:08:37 Drug: sertraline 50 mg [sertraline 50 mg tablet (1 tabs)] Route: PO;sw215:21 Follow up: Response: No adverse nzwaerdejm839:37 Drug: Topiramate 75 mg [topiramate 25 mg tablet (3 tabs)] Route: PO;sw215:21 Follow up: Response: No adverse fezpdturqq275:38 Drug: ARIPiprazole 10 mg [aripiprazole 10 mg tablet (1 tabs)] Route: PO;sw215:22 Follow up: Response: No adverse :38 Drug: Loratadine 10 mg [loratadine 10 mg tablet (1 tabs)] Route: PO;sw215:21 Follow up: Response: No adverse omzjpkcsax139:38 Drug: Montelukast 10 mg Route: PO;sw215:21 Follow up: Response: No adverse fzsbkoqdit416:38 Drug: Propranolol 10 mg [propranolol 10 mg tablet (1 tabs)] Route: PO;sw215:21 Follow up: Response: No adverse sjacrhsyzd1Nfwqyab:12:49 Decision to Hospitalize by Provider.rf215:22 Disposition: Admitted to Psych accompanied by nurse, with chart.ef115:22 Condition: stable, Provider notified of abnormal vital signs.15:22 Discharge instructions given to patient, Instructed on need for admit,Demonstratedunderstanding of instructions.15:22 Discharge Assessment: Patient verbalized understanding of dispositioninstructions.Patient able16:09 Patient left the ED.ba2Mrtwiioynv:Fortunato Mark RN RN vy4FwohcjstAmi dang RN RN nq6JqkpzxcgzAgatha chapa RN RN rh7DsvhpwuZeeshan Grover MD MD brKelly, Krista RN RN zk8ApfhwjsdUsha8WeOlivia jurado RN JOSE LUIS oz9Ymqwk, MD SARAH Henderson vo5Qtgtaaxdmyv: (The following items were deleted from the chart)01:16 04/08 22:33 Home Meds: Lexapro 10 mg Oral tablet 1 tab nightly; co3ob868/2905:17 05:14 Patient reports history of anxiety, Bipolar Disorder, Depression,self sm8-mutilation, Other: [employer]. Mental Health Admissions: several. pt was last at [facility]04/[facility]21and discharged 04/03 Current Outpatient Mental Health Services: Psychiatrist /Agency:[facility]. Living Environment: Family / Home Support: poor [facility]. [facility] is [facility]. Detox / Rehab Admissions: None. CurrentOutptAlcohol or Substance Abuse S ervices: None. sm8 Name Value Range Interpretation Code Description Data Stephanie rce(s) Supporting Document(s) ID Date Data Source [id number] 04/08/2021 08:32:18 AM EDT [facility] Name Value Range Interpretation Code Description Data Stephanie rce(s) Supporting Document(s) ED Provider Note [facility] FLTXEe6oDpHWUfIe62/FYNsnEBEvu6FtPUclCHy7KChdTDBrO4RyJDW1aW0xFHO7QVpJScIjFsBiZKC2 [facility] [file] == ID Date Data Source [id number] 04/08/2021 08:24:44 AM EDT [facility] Name Value Range Interpretation Code Description Data Stephanie rce(s) Supporting Document(s) Discharge Summary [facility] KULAMh6uWbHVGeZg50/GNLsxQVGot5RrIGvtRCh5SRuyIMYbZ8VtLYB0eQ6iHRL8WFkTTqDqVcJfFDS6 lbm [file] xpjxIHR3Qx/peñaloza/EepMIgnxA5tRT3cO5v7bniLU4IF76UO3PrbRDSzkcqUxweMc2N89RgjBq6uwPiKbV4 [file] AgICAgICAgICAgICAgICAgICAgICAgICAgICAgICAgICAgICAgICAgICAgICAgICAgICAgICAgICAgIC AgICAgICAgICAgICAgICAgICAgICAgICAgICAgDQogICAgICAgICAgICAgICAgICAgICAgICAgICAgIC AgICAgICAgICAgICAgICAgICAgICAgICAgICAgICAg ICAgICAgICAgICAgICAgICAgICAgICAgICAgICAgICAgICAgICAgDQogICAgICAgICAgICAgICAgICAg ICAgICAgICAgICAgICAgICAgICAgICAgICAgICAgICAgICAgICAgICAgICAgICAgICAgICAgICAgICAg ICAgICAgICAgICAgICAgICAgICAgDQogICAgICAgIC AgICAgICAgICAgICAgICAgICAgICAgICAgICAgICAgICAgICAgICAgICAgICAgICAgICAgICAgICAgIC AgICAgICAgICAgICAgICAgICAgICAgICAgICAgICAgDQogICAgICAgICAgICAgICAgICAgICAgICAgIC AgICAgICAgICAgICAgICAgICAgICAgICAgICAgICAg ICAgICAgICAgICAgICAgICAgICAgICAgICAgICAgICAgICAgICAgICAgDQogICAgICAgICAgICAgICAg ICAgICAgICAgICAgICAgICAgICAgICAgICAgICAgICAgICAgICAgICAgICAgICAgICAgICAgICAgICAg ICAgICAgICAgICAgICAgICAgICAgICAgDQogICAgIC AgICAgICAgICAgICAgICAgICAgICAgICAgICAgICAgICAgICAgICAgICAgICAgICAgICAgICAgICAgIC AgICAgICAgICAgICAgICAgICAgICAgICAgICAgICAgICAgDQogICAgICAgICAgICAgICAgICAgICAgIC AgICAgICAgICAgICAgICAgICAgICAgICAgICAgICAg ICAgICAgICAgICAgICAgICAgICAgICAgICAgICAgICAgICAgICAgICAgICAgDQogICAgICAgICAgICAg ICAgICAgICAgICAgICAgICAgICAgICAgICAgICAgICAgICAgICAgICAgICAgICAgICAgICAgICAgICAg ICAgICAgICAgICAgICAgICAgICAgICAgICAgDQogIC AgICAgICAgICAgICAgICAgICAgICAgICAgICAgICAgICAgICAgICAgICAgICAgICAgICAgICAgICAgIC WtVQOsDIQsZFGjZNJeIZGtUECdMOLaZZEcDZFhVDNaSUBwUFNxKBw2N5phKOVmYMGvSG1dHLh2Yw2+DQ pOOnYzGYF0fuGaoS5JNH0xc7AcAAeiPJAoh5EjNIv5 VQ5ZLSIqTGmuJA0TKMcdqj5CCXWuSCBazNOUy9ijVhArJMK1JEAyFgbhPM7RVYMeH1ycxsZsEZTgHFAC YEyeCSGRHEppMLOREWVmVTHkNqNmZnHmJHVtQPSqYYVYMIM8WSAmEeKlZRUjNWZkSbPpGQGDPWTuWJDd NaDlURScFBGpKbgdVQWDPFF2NSYeEkZdPULqUUHzKA 1NFBBoY947heGkWXHLLw9+LNotqwTuHjcYFfZkCWOsl9ZfQWd4WO9HNMJrMaahz6QiDxCsGDAXDToeHD 1FJHO8OVKbMWPjNz8NOTSkK717uuOcFA8YFp7KAuNcUB0olu3TTvYyVBMvPjfHVxe7GDxnML3CtSLoOJ sKlUCjpCXrN9SrP8HcqRYlxLSrwCNJZH1bwqZSSL6j L30tORLZVURblUI4PmS4OiKnPwBwBXM5AoDoUP5jKSqmOK2LWJW9QDnyRUYaNBViP2rWMfErIVXhHFSc fZqmSE6BUqZoR5JwyyUefQM9VdTtZYIHMe4+SIqdboTnOikOWcD8GEGmc9JcMKo7NS7LALRoQBhcFI3L LQHmqO1xEHbkEW5GLcC0MPVwFYDJGsIoN41qpPXtTW j3B1FsVlJuXEKnAgjlWQIdICuiFjGmDBDkAeWeEEllSZ0+ID4+AIiwUB6IIZdxnlHaYJPwHz4GJFQpGH BzEQ4pRGHkYIIpQ4Q2bZrpPNLISfMdA2wsoohlEG6zZIGoI532wLczlcOfRWJdJDQnOy9WBLWgROO6YB OynBUtLvGwQJCYNYytWX5QyMYvUAH6oK2oHNaiSPAs RBDcN9iRNpOkjRenZP81gKggfkIcxHWpZLc+Ql1BIO2si5ZuZUe2fwLbENzgZLS9ANwuXOAaUPUnWPUq QIA0DYI1IHLTByGvIOXkSQMvJSqvVCVtVHOsjn8FHGHdDZO0QIucRAScRQLxKDOpHGpdMKTrALuxBrWr TMSjJJEkTG6JQwGnFLRpFOHoFPlbKJTyHJHvbu1PUG UoGTDdZFFaEpJfRIZtZKSbDAptCFKwCGS4OMLwYMWfRYXeXQ4NDmMiKFYrPPk6NBSfWZStPXJsjq3SPW OpMPSxThksYCXaIWAkXMIeUHxbUIIhQFQiVUK1QRJaICUzRH0QXsLtERYsISAgPTLpOLHxPPTtul4KGC HqJRMrRtM3EnYnCRXiJTGaEGokKZIlRSZnQJu0NIPm BHBvZX4SDpJnCQDtLVB1NkDvGUHxBXLuyv9STIBcHIKcGfQoSvFfQTGrHMAnEQqiVZZvKQJ8CaE9KQIf ETGjGR7UXxAwJMKuAFg9MsRaWMAhOUSjng1ECBZyWXDhKJF0XLAeLQQpZITaZGtgJKNcGNPvWRL3QPTl SOVmQK8ZJkXbGSRtRuBpYSBwQWNhRGQrwd6EGZEoEP DwIOF0HgZcSXAxKDAjMPgkVVVtZED3NsN6WGZvZPAdWH1ESaQyZYRjLxg4UKTzREHaBZRwbc9SJYNeHO XeFiWnAoEsCZOeWYUnUJlpNTHdGNPoWyJ8XWHiMUTzGO5RTvZnALJgGmN5KjNkSMDvDDJoze6LDXUbHQ LsBqJ9HvKdQMJaTCXxLDnkOFZqNMZkLxGsGSGvQZUk NK7EIsExTSNnEAI1DyocALNuQLNlmd7EDYIqBJO0PkE5FhWjYAAfWHIlLGqnAREfHPXlYyE5FISyCTPi KZ7SUkSsJRCmFKA3URrmJEQcZSUswr4GKDBuPQD5TLS0FQQlEZQlRXCiKOxwCSCoKGU4XpP0QCAbWINu BZ9NSxQqKXQyVAT2BNHdCTQhMYYuza9PTPJzYMB0BF h3EEHqOSOoWZJbKDwoRLZtJKP5IXPrOHUbSKZrJD5BLuBqKZClSTftMVOwSIDrXUXpya8FUOAtTQY1Wh U0CbQmMOQxGWAqJPihIWDpZCS7MkZdJSYzFQSyZW6PFsXgOSYyKHm5AYYsQMQtWYPzdq8EFYQuRBC4TS L2HvGqMYCdGKPiWLbfQRFjSYP0GlYaWTYzJIIqYY2S CrAoUECoEDv8RRsxBZKzLYMown3TOVOiXKH3JCZoGuAmAJWkLXHtYAyuXRQbZAFuAWluOUUsTBFiQU7O SdUjAEHqYEUbHMZoEKXqBSVefi4HAVMaYEY4PQO4EbZfXXWrLZVcONyhYDCdDPZvChI9LEWqKUPeLL8H LyLaWBFtYFO6ZOUnVPNyQRYzmi2JJSNxYJP1Wvz9DX FkIHHnDRUqLAmeHFIyTTU5MSy6YVUsRZQvYU1EEhNeXEZlBnM3KIWtUNXiOOFrpj7RHAMvAEN1YUllIK IsPBDcPASfJEjaTFLjODP6NSglGVVxLWLqSC0VTuHgTXPaNlFkTNQuVIAmCHMpsd7DIPPjYLI8VCw9Js FfVQZhKASdWOnrTWUxCXaaGpinVRPdBOEeUL4WXpVz YGFgVoZ0FEUnLWMvFEIchp5CMREiZWR4WBh2FdGeDOJgIIUvYVksAXLbIRzgSWk0IJMlWMMqYM9QZiGc CPXcIcCwMnSpGKGpSTAgyu9FIMMzLTR4Ojg7WWAsGDKrHICkPBsfKBJwKSpjJDI2TOYeQTMmAU4SMhLl LMIdZbJvAbBaDROgUQTeki0JtKRsnJbzrv0UCUwBFr 6PlMynCKJ6JUqwZy4xxBQ7PZAuRFRMFi0QzhVeXWYaFHHIRRtoRLGbVWHtVkN2PvPzZXKwXaMmQfe9KX Y0MCD3LNxgNTo6ZCzyKrU8DCHvGmgbCiC5AGUqCGChDapsUUTwQRe7RZHuHsYfAnK+DK9dIDw+Pg0Kc3 FoojP4isJfODg6SlL7MT2SNGHMX3QJTy== ID Date Data Source [id number] 04/08/2021 08:11:12 AM EDT [facility] Name Value Range Interpretation Code Description Data Stephanie rce(s) Supporting Document(s) Consultation [facility] KNDSLk1wTsIFMrVj33/XNKwoDKRog6MyRLqyXVe0TDveCGGgS1AgTIU8fP5yQLQ6RBbKOgDnEuYsCOF9 lbm [file] scKVwnsZ3/FbCMat0nZVnvAXccGwrPWOXRMMnE01NbDkUqNnqeCs15VcX8cjLlBgPIdayZ7wqTZk/KILN PACKER [file] ICAgICAgICAgICAgICAgICAgICAgICAgICAgICAgICAgICAgICAgICAgICAgICAgICAgICAgICAgICAg ICAgICAgICAgICAgICAgICAgDQogICAgICAgICAgIC AgICAgICAgICAgICAgICAgICAgICAgICAgICAgICAgICAgICAgICAgICAgICAgICAgICAgICAgICAgIC AgICAgICAgICAgICAgICAgICAgICAgICAgICAgDQogICAgICAgICAgICAgICAgICAgICAgICAgICAgIC AgICAgICAgICAgICAgICAgICAgICAgICAgICAgICAg ICAgICAgICAgICAgICAgICAgICAgICAgICAgICAgICAgICAgICAgDQogICAgICAgICAgICAgICAgICAg ICAgICAgICAgICAgICAgICAgICAgICAgICAgICAgICAgICAgICAgICAgICAgICAgICAgICAgICAgICAg ICAgICAgICAgICAgICAgICAgICAgDQogICAgICAgIC AgICAgICAgICAgICAgICAgICAgICAgICAgICAgICAgICAgICAgICAgICAgICAgICAgICAgICAgICAgIC AgICAgICAgICAgICAgICAgICAgICAgICAgICAgICAgDQogICAgICAgICAgICAgICAgICAgICAgICAgIC AgICAgICAgICAgICAgICAgICAgICAgICAgICAgICAg ICAgICAgICAgICAgICAgICAgICAgICAgICAgICAgICAgICAgICAgICAgDQogICAgICAgICAgICAgICAg ICAgICAgICAgICAgICAgICAgICAgICAgICAgICAgICAgICAgICAgICAgICAgICAgICAgICAgICAgICAg ICAgICAgICAgICAgICAgICAgICAgICAgDQogICAgIC AgICAgICAgICAgICAgICAgICAgICAgICAgICAgICAgICAgICAgICAgICAgICAgICAgICAgICAgICAgIC AgICAgICAgICAgICAgICAgICAgICAgICAgICAgICAgICAgDQogICAgICAgICAgICAgICAgICAgICAgIC AgICAgICAgICAgICAgICAgICAgICAgICAgICAgICAg ICAgICAgICAgICAgICAgICAgICAgICAgICAgICAgICAgICAgICAgICAgICAgDQogICAgICAgICAgICAg ICAgICAgICAgICAgICAgICAgICAgICAgICAgICAgICAgICAgICAgICAgICAgICAgICAgICAgICAgICAg BUFfXSFwZMXoOKTuKGXbVFNgGDAxUVDjINCbBJp7W3 ajRLStRBFyZA9wYWr3Xu6+MCtKIxVeFTP5vvGobP3JVR6sq4BxWStkJCJfk4ViBUz5OE2QSDVnVIggPT 0TFMvanz1LEPAqVMQwsYSUd4acKhFyKYW1ACUkOaasVO2KFSAzT1vnnfCcTHCzHBNAAIvlOKMDCKggIK XMATPjAHDfJoDbHoQbOFTkIQJjREENIBS1DUPvIhDo ZJAdRFFeQdTpUFQRZSGkNWRvYjAiWWItFZBhRhzwKLKPVH2ALhPkU3QsyD90RFIrMFl+Al4LSB3fg1Uh FUq3AyLeEY3rer8ECRsSSbIgQ2YdniT4SFY2ACNkAk3MIJPyVIMclJG9TRZoPLDDMoFxP3CtaI82XKNW Cj4+HCckmtEmTddVXwS6CLIhi0XkMZb1LR3ROGFqEA p8yEYbQ50bh2VwfQSbTknaN8kooPP0o7ZfPUEwEaAZRK8rUH9eIHKKOoCpdOF5WmQ4MdEkNvItUCQ7DO vmXA3fAKxqPN3TKPH8GFjhCGOqJIUeI2nUYaBgSZSgOVQjrHkgDK3SHoTcB1TcttGekFV3LzDlQAQITc 4+FEnhieVsTydZPwV9SWIlx6SuNGp8ER3RVTFzRTss IU6AXKIjiV8wLFrlET2DXaG6RPFwQOEUOkCdQ01rlQHiTJr8U4SiDgIjQRIbDbxnXINgGXjkUcMoBOKo WyBdDQogID4+ID4+TLegXV9KFVgbwnLrTTZaPc5VWTPxIALePX7wUPGwUCPeQ9R3qQgnBYNZKiReS5ou wlemMB1sZLWrC203uIrdpnEwBGQpLDKlIw5XRWIgMI B1YYFlzTGlTxWoAWQDIJuqXW7OzFNaTAA7rT5gILotDTPxXBChQ8gCOmDpfNnaIM80iFfdfpIiiIVxCZ o+Za6LBX6wu1YxSNk0vdYhKCeaEDA2IOhvZQTcGUEkFSCrXMZ5QPC6TRYTBmIcYFLjNUZaBQbzXEJgXN Zxfk1IKDJjQNB7BXHlRFUvCRMmYYTuUDqsCPEbXVc9 GBR8DPJzBMAiCK0OQgQxAXAtQSZfOComWNCbQBZqbj5DCWSxWPArFbuvWlSqPYAtYGEzIXiyWPBcCCG2 QRR7SSXzPVCsDH4ZMaSiFZOjOLd7YGVeFMOtNNHiqn9KABRgORUoAyzvKWMyACYmWUTkGNblSLLjEHWi OWr8NUPpSZObHV9MOfJlSFCuQSShKMBgQKUzMOJedd 0IMOFhEDTnIIJ2HKHfICPoVEPuIFuyTSStUQR4QrE8CCIhIADzAG4LGdBxJPGiUTKwDDRvDYXyULTowl 9XKGXoIYIvRmKuXuEfQKZlHWTjWPskADQgHUI2KmJ6FLFvFXBjWL6WLeCtWWLaLVo6RjVuQTMnZXVvzq 9VVYRzCOEhAYg5YyQlFFVlMSYsSKtdKZGlJQFnBBd4 APBuCYWbPE4SYlHeTNMlJhK1MwVrBXTkOSGpja6GROCsGPAtOWR9BuGoFVNpUYEvDTgkKEStMNY4IyR2 RKLqCRNqKM2SGgYkMCClQay8RoNxUWFbIFKffx8KYMNgZOCuMNdyHJKmJDOkZEUpUAgiLMXhPXLxOED9 KKHgLZWbCZ8XFhDeGEYlKbLvKrggTRWsRRIszy8KUO ThFKZqRsVfCFSpTQGvXIRdUOaaQXJxJXW7Gqx6NWCpAGCnDS9HUpEkQMClEii9OAJoOBZiJTIsrs6YOG PpSHSdGHg2NiPuVXRhYNAwJTirGVVpRTE5ZXDhQTSsGZLeEH7NJaHcNSXhEfxnVoGcZXPpCBObzn4DEA TqGBJ9FGK9HyVaDKLvMZOaLCwpWIKbLSYbYSi4WMPw IUUeCK8FKkZsZPAbVPN4HLJfGOOsFHHnww2CTTKjBUY9EON7ElOtSAToWSQoGEugKXCoLYBjRUN3FUTv HQScZA7WBeJjBTQlAZPqDeXrOFJmHNRycp5AGJQbRPS2Isb1ZJLjNXPxBRTfQKnkLPJbMDPsLCblFZDb TLFeBU0JYsCyKBToIEEsZPNtFKJtATVhfv1FBUOcDT U3KSY5LNYxBCCzNWDcUTxiVKSnVVU1SNM2YFHoJMZyAM9VLlDmREWgBBI8BclpQDKjVLJlbq8ZKYNjKY S6AZTvKNXzLAMoYXWePPtiWPVjZLA0JRC4MKUpQJHuVU3ZBqTxEUJyIct3DTTrYXAkQOPfyr8ZCAVmCY H4BINiEGSfPYThQZMaLFmpIJIrKDuwGNcrVHIeJORz XF5MCoCfFGInWuZtUdWcRKOvMTQnio1UYUSnENC3GVT2EVYcHRFfSUGiANpuQTMpPMx6EBs2ONJbYPJk VL0DZfYiYDViExHyOrEoWADnZCBjoj1ZJUAqYMG4ZeU1DmPaSKLlELQfSJloCDIzUXf0VOx5BXUaSQTw CN2WVeXxOGCgSxM7MsPlVAZkTIXuml0VHLAjFGW2Zv t7VOVeZMNjGVByGZfiXQGeDDf0PUR4DADfXKLcWG4FXzFuHFJvCWU9PtQgYOZxVPFdup1NIVRkPZX6FF u5KvCsPDSsDHYvUHgsCJMeNJv8ARM4VDUeJENyIH7LOmMiAQUvZAN7ZVfrANNtYGXguf4KJYGhBBL0Xf BoZTFaLBCxBRIhDWpgJHBdUAp3LyZ7VRLdYSGmIF3P EuVdGBLiEEc3WRfwLWWfQUCicu5ZOIQcPUI0Lvl6GUEhUNWkWXYqNYl5flKnuNKkCDp1ZP0YN1HiryXa CeAHLi6Bn715XHB1JOUaTs1OD0bkYm5aYAPbOMYBNy7FKVa3XTSdUBU2BMI8IECqWwNjHugpUTK8EAv8 MTVlODRmZjE+QSa7UEM8OBGmBdw2YtPaXtDkOPTdOU m5CUDkZYL3IBOrYJ6cECCFUo6+YJxndNBnbAezRQUIDgb0WPnuBSsfQJSNCb1C ID Date Data Source [id number] 04/07/2021 10:13:17 AM EDT [facility] Name Value Range Interpretation Code Description Data Stephanie rce(s) Supporting Document(s) Consultation [facility] WXPQCd0oVkHHFlIb56/EFQfrSENdq7MzUTcnGQg9CDiiLTJtY5EbSVR3sN5cAYE7TJfCWtNiQyHjCZD0 lbm [file] JPL1LoW2ZBG0VDg9D6TtUDUiOHKxIwCfHF5BMp8SEoX6CQV8nVTpZv3TIhA2CPuKQzHoFL7VIHm= ID Date Data Source [id number] 04/07/2021 08:19:33 AM EDT [facility] Name Value Range Interpretation Code Description Data Stephanie rce(s) Supporting Document(s) History and Physical [facility] RKVIEy4gQmJIXlXo35/ZGSfvNCTet3GqNBjwHYm0UGntJHAxI7FjGPR0tV4mKMC4PPjGJzPoEmPdKRK0 lbm NeXapOXvWlOYRqElgKLuAoWLshEiucdEFoRF1FpJA3EITwI25mXJLvANWsR7BfRIA7UGm+Zm4XQXBsqC EtDK6TWdpB2O2ca2jKRf9+wP2HRQ/otUFic/m2pL+ajaV5nFCROfRUnDcWsb53ipCjvbbgh0asozD4ME VT+uPEParftI7Qh9WnzXuxgP+TDPe138i9HpVL96Nv 3+ymUJ41PnK//IpcGkr70IJCJ5PNoyY7Qm0IU0P/A/5zG27gaP9VaykllrREJforxadAq5ErMgTLSuq/ qsEvSodhNpKBdwWodQH+KbQ4Stg3eWWFLOriJqRHCQNXPgJBjPqvhU5CLgqR75FbU4dWPD9jYXQjAU/7 pO270CNWLJsdxZf4y9n2HDSQkqAhtXGXHZPOvdTQA/ 2Yw92B+nlj/pWdsLdXOC2avnNm6sLTD7sIMaZamSpSjMfVeloi7+uvcGu/KeadNDB+aO1jimvErvt2ii pkw0f24R7TlVs+CUlhEfXJtnaOOUj4gC3L5ZHBy/1x0VfZNmOmANexQ5LPlId1tB7tkYyuq+SArf3QNH CYKjUutnCx6wz2zFieMxhitYpOgInU2RuE52JglbC2 p39wENCiP5WKUf2IM0zHCxuOfHxMkI/+Z02lRLcrseW/Hk+HV0L6+SSqnubSKyJriEniXbzZ8jyn0PNX Ui9YH16t7KxCf4omSRPqcG71QeAw7VqG74y3JkN7LT58EiT1mw3a/pLyzlDU96gbGDljzfvywwW/c/L+ Q/es131/plmxrI0xkUC9kojkbMrKHvQiZ8cIkz0uEg gwxQH3q+z/ggu1w4sVzShJeVwjfJ6IYhfcv0QzTve0LbFFvlt6+EgJrEyFqbmzTtwqex14pGFTOT6Fpd G5ZeE3vuNbtUabzEH4W12YSSCxePUHJNNkPO9D4soPLWDK2+B8aDCmRHUIRym+XFxF26wtsf1winprUJ YyY3abek0y5z1GecjddoQybdY3jdeoCtDYhiJkwgk0 [file] ICAgICAgICAgICAgICAgICAgICAgICAgICAgICAgICAgICAgICAgICAgICAgICAgICAgICAgICAgICAg ICAgICAgICAgICAgICAgICAgICAgICAgICAgICAgICAgICAgICANCiAgICAgICAgICAgICAgICAgICAg ICAgICAgICAgICAgICAgICAgICAgICAgICAgICAgIC AgICAgICAgICAgICAgICAgICAgICAgICAgICAgICAgICAgICAgICAgICAgICAgICANCiAgICAgICAgIC AgICAgICAgICAgICAgICAgICAgICAgICAgICAgICAgICAgICAgICAgICAgICAgICAgICAgICAgICAgIC AgICAgICAgICAgICAgICAgICAgICAgICAgICAgICAN CiAgICAgICAgICAgICAgICAgICAgICAgICAgICAgICAgICAgICAgICAgICAgICAgICAgICAgICAgICAg ICAgICAgICAgICAgICAgICAgICAgICAgICAgICAgICAgICAgICAgICANCiAgICAgICAgICAgICAgICAg ICAgICAgICAgICAgICAgICAgICAgICAgICAgICAgIC AgICAgICAgICAgICAgICAgICAgICAgICAgICAgICAgICAgICAgICAgICAgICAgICAgICANCiAgICAgIC AgICAgICAgICAgICAgICAgICAgICAgICAgICAgICAgICAgICAgICAgICAgICAgICAgICAgICAgICAgIC AgICAgICAgICAgICAgICAgICAgICAgICAgICAgICAg ICANCiAgICAgICAgICAgICAgICAgICAgICAgICAgICAgICAgICAgICAgICAgICAgICAgICAgICAgICAg ICAgICAgICAgICAgICAgICAgICAgICAgICAgICAgICAgICAgICAgICAgICANCiAgICAgICAgICAgICAg ICAgICAgICAgICAgICAgICAgICAgICAgICAgICAgIC AgICAgICAgICAgICAgICAgICAgICAgICAgICAgICAgICAgICAgICAgICAgICAgICAgICAgICANCiAgIC AgICAgICAgICAgICAgICAgICAgICAgICAgICAgICAgICAgICAgICAgICAgICAgICAgICAgICAgICAgIC AgICAgICAgICAgICAgICAgICAgICAgICAgICAgICAg ICAgICANCiAgICAgICAgICAgICAgICAgICAgICAgICAgICAgICAgICAgICAgICAgICAgICAgICAgICAg ICAgICAgICAgICAgICAgICAgICAgICAgICAgICAgICAgICAgICAgICAgICAgICANCjw/gCUpF3vrlGYe blZ5C7ebSw7ADk0TIZ5ld5ByLMCgEHocrzKhFknZDz HcTARfEcuWJqf4BRkpBH8JpFWtU2KxL7SlXXaeSH4NKTSfWKPlyQMmKHVlDTQxSkI2XRVmKFgyXG9VvY DfDZfwBWOmXJFqKhHpKLSgGLAwTZJkAHYoZMFZLRCqQNCoWaKfABEfVNXnEHyeQSNVDSR3CLMpZxRnJS KgXAToNiNpEFCUTEU5JIAwXeGnNqJxNIYmTN6GBFPt P981woQkWZKEVc4+BGhhhhKmZhpAGyEvHAJys4CyFIw6FX7RLXUhErdgt9WgGaVkZRAHLOcyXE8RKUD1 WPZ1JYEgDu7ITBAqN634lgJiGC4MQo5UGoJqIF4pbt1YTvKiQNOpLkqBXuq6MDrgIQ0CtGYrLTbBEdKe FpcpI3vjdUV7n7VmUWByAtFTYN5aLA7dTANJNdFfzM P8NfR1RoWsSmVrODI7XgqpWH8iUKipXU9DYFD3KTdpHAKwYIEeK9uWLmJkOCCvNZQqaQutQA4BTgWjO8 NwheWglPZ9SjXqNEDGWi8+PXetrvWvSdaMSfS4VSNqj4WvVYk3CZ6OOIUvJLgrEB8SVGMmiI5fUTxpYL 3BCpF7LOEmWYMLVeGlM12xtSIwDXv4H3LrPuLxFZXt RmlsZXMgPDwvTmFtZXMgWyBdDQogID4+ID4+EEhbDS0LXVezywMmREYhPm9UUESqBQHqMD0sETXiAMGa F5K5eIfcFKZJNoXyR0tlkoslMM5wBGHmR879vKnwxxXzAFSqWEZaMh3CNIYzAZA0QUBtiLBzFqOzKNCS LBvoJS8DwLFmJBX0gV6gIVoiSASrNZKfV7zRNaSqdO dxYB23dDrapkGytVUvIDz+Om8NCK2ow9HuVLr3blRyGCkvGFG7STciSFEsJAEjQZDgBBV3AVF4FTDZAg HvYIBcSYTiNKflOJBoPJJbki0DGNLkLTB1CxcuDzAeFNMaTDSmIFnfWRIuCCr8CME7IYEaYYAtIK3SCv JgJAGjJVMiCGhmWOHdGRMaut7YWSVlVDIjDuz9HiTk AJRvILYyQDwgTFKjUOS0SYjtCWInGHScTF0UYfTdWUVxKMh3FFZlDIVeBAKmuz6EDFAoIBUwJhlkVOCm AGVyMFDoJQyfQSOkZKVoCuBeLEUlRHIqKQ8EIyWpNXLwSVK6OUFmVGRtYCDaxl6OGGVxSCIqILA2CIHt PRCxFLJvRQyrOCNbIMR8OiZ0KAYsOFMgHD8LDlAeJN SyPRbeAnptVSPyTIQakr6GWHXaXNCoPvW1KIMiVNVqCPZaEYpaKTNjZRS0Mgk6LJUqSWGfLR7HUbYaNG UeNFb0BXBjVZZuUMBpmp5ZQOJbOFRaKqMwWTHzJEZwZZFaKKopERYfEZJxIcGsSSFwGGBlSL3EWnSnCI BrMxZ9RHWiLVZkNNEpoc3GYTBdWUZeTXZ2FdWnFKZz OQVoEBsmTHGdYTB7ZGO5LFOsLIInUI1BNzXuNOLdSovtRFYbJSVhUTDsbx6KAUNxQCFyYvV4VIRcWAPd WDYyRBkiYGTgRFSvEVGuXKIaCNZmZT7CSmDgIYHlPhR6HQAtRIOaVKFxaj2TSEFpWCChXgNnGFYjCDCw AUBkABsbUZGdZKI5Ekg3BWFnIHKzRI7DQfSsOJDpQo p3CFTeDGPbXUCqlz2ARNDuCJF2SNk5AMTjVRFfRFEgUZzlTOZqXKPfTIHxOYDqBDVqWS8VIvYkJCVyZC YvYGIbKQKfVVCmon9TRYSkNHU6InAtDeXyVXTkWJLrBKolKCBxVCKvZDK6ZGPxLTIsEY0IHqMjCOUzQB P8ZKFkINPnRDTfme3RQDHiZLY5PlK9FpQvLBHyKXQn CCjcEBUcSUUaVtMkUCDuFCAjMB4IPyAoWNLgGSG6MkGeCJSpEUBalb6HJLAaHIC4QUm1NmTjUZZaPSLw DTtfHOTvTBH6VNSfAMDtPSXvPC0ARxTwVPWwKCHyPMZlMZXgTGVdxq9KYDHlWXA4XqW1OuGwIJQnUGXz CEqaHZMkGAD1CLQzHSOzRIVfHU6KEkCcMPNbSJQ7AB GqBWYjKHOruh9MKTBqPGZ0TQO1NFLqEOYfDIYaINezRLDpSPQ2CROkMBCvDBTbOQ2ILmToMBMmVKf6Og DwLPHyBRFovp0BCSNmAEN9LZv5GLJlYGVpLVYlMUisDWSoJQS3PPD5OXXeQQMbLD2TIwYmXKVaMgR5If JgWHDvUVPopj5IYSUdCWG2MJH2IUHaQELfMNEhBEzn NAVoWQS1ARXqAKLhHIQlZC9PPnQiZJQgZzE4VRRzSSDwVEQshh0PWSJcPQC8VUw8NBTrGAUbVTDqYJyb NXQmJNZ2OYV6OOXeAWTzVP1FQgAiYNPfKfJwKCYhSLEiJNFhau6PSDVnKSX8QWInBECiBETwRUAvICyx NCWbCGe3Oml5QHRuWIXbNF2FIaXiICGuJaxkFVIiYS SkMATlyr1JLPPdNCJ9NxAcRPMkSRPbMDVsGXqjKHDbTHv4CMP5INMsMIMuDX3KZxWrNSUlWsp9JYRgEZ EvAHIcnt7KKARqZEC4MYT3AlDfOWXmUDHrYOggGUVhZOa2LoUfNPXePIKnAL4CPkCaYLXaRiv0DLOyVN UwHTBsey0IUBEfIRX1UIlcOhXhCYCyQQOlVXt1gfLy tZNkZFd9MS1WH9IxylFbGpXYWr7Ug994ZVH5WAMxYz3IF9mjAt0mNRCcOFHKZt9VACu3MxJzNIPkCkWp SqZxPZClLrg8ZhofOTY1MiM7CcS6ZNQ+CPc0J5S7YmWeIGEuT4T7YTMuCjnuUcF5FwatZEmoZcHwTq3m XSANCj4+KEersGTanBbiRKGRSvezYVjbVJifQOATWp0B ID Date Data Source [id number] 04/05/2021 08:52:29 AM EDT [facility] Name Value Range Interpretation Code Description Data Stephanie rce(s) Supporting Document(s) [facility] AMRVBm7wFeGYDyGam3JjLsGoCXNcYP7gjra8C0F2mANnM1MpyYMns1esT9NaJ5JiKDEvFGWGRJ7WvOIj jb2 [file] RwonxZJ725cao4Yv20s1jm5jO9Pp70IIhFXliZf+Elijah HxScHY77g5khyHqf0pSJhQb4jqkEmB5AXC8RT/JjakNx0BNLq+aY53K2lxId0SVDec3rmY/1wbvVuG+s ev4O5GgQnQpG9URPiicIduf15tDmj1I7VPW7LTL+p1Nh403H86Oj1O/Mua8Sdme84fg4A20rk1z14Vfk tqqH76N2i+cDt5SdPk9uMHlYHdb7E9uR1A8G1zd73c 0Yfc7hIqF2ma30fHbfsx/h8fAQm3h9xBeJW7y5zoIhjE0qkto/ODg3UsQnRbvuo79iLjTY6q/or5d5PO 0r0fPTudel1xgL4rLmIQzk+M3yXodG2c9TNv00juPF8x1oa0Avmis6npcjvD2d0kNifauoZoDSz1+1C1 acjKH0aJzx9xCASa6V8Uv2zGONmOhUCc/Yhgs8pkes lCbWZFh1fUeYKr61fHrZP2fKMpo2qfS+0eUNXz/SSavE9Y9l2d+4t6lc26J1VUCQhxpzWH/RBf80wGIk 8/Ld2y6jt6v0jHXdqkDZ0i1k6nCOE497VB9ct2+hYaB45zWu9uu/ftzOsMn9iVa/uriR5Qe1HtsPOkj3 8/RLZgdF7IvJj1jE2pDP1yKdWW7c8Lgzxk2NwjtDR0 7SBr+dEI4SzTyeoy+1p3mk4COkXBJ2kWzDRX4b1xkxxnIcqchVIh13miCPEm55ZJ291JidpeA0yI2gi6 NmcgupMtGG1kM7eDDcSLiwMfK66/SYD28+7TtzdEG8aEv6emGoMYmt1dVz2kS+dc63k00Bbqk70uS58r H54cSl5BQcxS7g+O7vBw0u1nHraVnxGfk8lPS4XCse 33p4i+XW41+e+G7N+M767ZOi1hoQyxw7s4b+HnXNyxu+Ei1+L2NoCE9sPe70SEZql9o5Kh/8Nf7kYQlF D5k85xxU2b2pm7XuIsHWug0l7VQy1Des6tDmsV543iPzYp01dkvuLkw/5TpsviXe/KCZN962DrppObbk Xaq0GGy3R9F6y0G2e6ulZtknjwIYzXmfsuibOfuvin JvHv4aEvDxBvFHDsGJEg6imN4l1m09AC+axcOLpy/j6ct4+dWGtNh5s5ejeKlYIr+91MJylXHvVhmXap Oug4KNF0x5zXeaGM4Z5whY3n4w8qStx0v+1BlPe/W1svaRGteUd26E2E+7zvzbx45kyAT307XFo51vO1 zL/SkU6pSxYfr0W0+1GvG1yGhMnShg6BlCu8egOZ50 2HWr9MIThfpuVtrWyjG9kk8k+YxhK49snfuo7mx/dQ9u5jtK1102yFk0rXe7yVw1kUnxeUtVrBxxZ8+4 vciP8oTLoM7Gqyv2qL8ec+2Z47Kcpbhi+G501fclyz+2J77b/YK6gMY5hgvtv4J2d+F/aX9bdS0VEJ7h OWel6hd9/S2IBxp6phg2jZ+4V2liaT/wfuL9/Lx3tb sKnu/0y1Yq09fJjyWtI12ZqH0783GJvra8lTIZ/QgHrghmpdIHChYy5wklnku/E/p3QL8mQv//uLq6g4 dLCJmEZRQcG5UHw5FkXcj/1/bHebS28lypYSKXcVSDs8+pvXbbO/Pzbe/BLro22oz/7u4yDRTOkf1v9/ Tp9wrx140x7/Cpn5nbi60ke6iaH3+fnb53+f9S78qX 2VT+zi9fl2c+/pJ3xhjK6m+2Nz+v1ujz+/549d9C5I9k2022202F1aknvIwck8P6+R77T00cr2c37D+L 6tazj4e7+X/K505yIp7Z6rfufhH+7c3Y2+3Fz+4v3nZ/8bYHfT/o9/AT53U07azzi+3Vc/uLk+3Pb5ue 72/EvUF9YMg+Plt+fn7b5/l50/AvDL76GqgiiebB5N v+fn/68/PVqB1F08P+n/V55sw10yK2YgqPe/zt31vQgt50d89xgn+/VvH3JT7RsD+ztFbYd0QxNCW/9Q mK56D+G+P5J+wLx8zkTAw5sfx6xqzWg+/5aVGgLcgA56SiV2jqi87oA/i9z3VQen/noO/j+/4fGSdkc3 IfbfS0pd5d6I7ferqNR+l7o++Hjxn79yp43kZiGtdB 22+eBPjnpkmAP2+XgXt44996A1J9/U5endNd+s922gn8DiF4ujF2s15xCE1vsdv+N/i23181MUFz96GM QTmcgUlImSjWLf3Ex1/vj9/EX73sn3wxr/nWALI1DJLz2WRAWP+0oECTvkpYyyg2fW92G7ERcJrw1193 VDD1M72k+/5I+/vsX51/eJ12mu3Tze/o+03lvPHqZj 5LE2hYU567SfCS3yobn1/mPKRoAxWhE17+mC9r2OESVMwh6N6b5pmij7E8y/69+H0uKAzf9AcvpRlH4/ k93/jms3L0EqnYoe8HtxaQx67Srua79l+T/Gp+JU6unjla3mO72txY0q/6PT1fe/HyMO6Z54kwb09x+e H2nXhp4b89O1/3Mp2Ui9/+WNb9fJ/ffMpr21Ltdyts 67O/39zxGdf+4wosn5MaN/Lp6vwda8/x+rpcg05JGIblb71qp9tzX3cewi/gu7t57nonz/748/HHn48v +n6/+PHHJ0/fy8uIjc4zmEp+lTGQ/Oc75YloMzGqtQ55jqiapppA8kf60peaxfc6+QIYphIVYw4hrn/0 ndQ3f94x0Vo4EeJyOKdGww/rrRcO+FX+Jl58gl+d/P mXj2f92hf9EjK/Ol+TiiVhx7ZyHsX4Zv/j1hEfyhes1X5ws9cP4//lj1Sye12Qqj3//Yz3AJ7c+v7Q90 Hfx/v+8qvvs3/2gzhCqyv5FsU0/Xu2SH5L+v2k8n/yZV6Ax99v+2quL8F3/Ps+++jqM3W3awlOLRQ1c0 seObo80RpNM1uuQ0/n3/sad5Fwf/BU2QmUV0EoC8Kh 4I9f/T3v/LpF6c65Jb++H/l5/L7P/vjjV3+fb2z8+NVu2R9//Lh6oRY36v+47Xh6vqU3c23e2A1h7x/V 71V2k6Vp9/ubbeDvs+Pwv34pp3+qgb/P+g2dp5hmm2hhus8/v900A9/n+9auc5Xr8487b7NBvX/0/Donald 7/O9z+pfG1GjmSfV4GurxfZPqv5huOa3mUR+Yqnn5y /xqrVAfTP4T77Vu/03kl/cHx2Bosvse/EoeO4Yj/pGgF/gP02x4V8E96z+X/T9pu/4Z81bJQYmV42r3G 0qA9G315AstlNBv2P8Drcy5pbJv50t8D48v8X0G2I0WY1hxp04Bf/8ugY7v17j2U4p2a40M/T4kVkXbx /ib5oe506rtlnnt7t8/9Ln5O3t511bv9q2W//GfPw5 Ur/BkLeNQ5X+pt9vqj+1l/KwRA4hDU8Ix+tRhJ6U74Yprqwdo735Q6hsG61I+eboQ2p3V9/Ii24Mf9g9 os2sS6Pzn93IqR4w/2h7Prps8fc8rsaMcp/3+5MyVA3dLJk4v/hVJL/K8eryq+S3NwfA+/zx+CS9QoRv pR+SX6FMp/Lp+gqAh1Hn+Sa/wudD3x/0Upi1x7jVac g5VmTjRw4fms9o1LjZ0Nh9/yApMyfdoocV7iuympUp1enls+QL0nm42TvJrnX+ZT9Ua7Rzi641FARqEW r6fO7gw/WMoIdkuaDn73y0sbedAN6wHr/9708g66g6kqsdYS+bxqtN4/Xh29qtMnoe8mtv+vce56/Peñaloza/ [file] 9fmJ/SczTRzusg1IesMu+1B9hif6L02vA5t+Brionna/J2iVo6VjsJuHcYCKeduBY/gZHdYND1myiRo87y3b Y/4zqc5QAvwXimctwXHsDu8qrUD71y3tR28f1m4Daj Uiec6MdhJjf5nr2a6EvKXitSQsA4Fx3CpoXR1QuH894hiwZ+b0+Dw/uK9O5pE7ay/k76iI23IlcGgJzS nz11TOnkdLv6uLdp/YdkH3MP6np6J4RY9dW6IzFn92bn51HxHL0pro2LbB7D5E/BfwLkcZhIs4nWjBdP VzA4eUkAUkq0bAJ9MmvwnEntfLirBUJ+C7pNb3NN0C d7u3niHpNy5TtShllwrJ0QmLCHwlJm32BDoSBMoCNyNrmAY+G2fyqz594b4iVKS2hoD+B0CzhuRLho5Q xARBUMo46dRnZ1w8ybaqxVQfFiX0t+i70/n2fKDVL/p8uHFOikY7O9WjFANT5f4wK6yhMit7Zz+maría/O [file] E6w9IKJlMIqcRN9pdqFdPBQaZwbiOb3umCB4WILrKvqLMk9Ll8UxlrK0nfCjJuX8WAR4MzQbPJ8O ID Date Data Source [id number] 04/05/2021 08:52:16 AM EDT [facility] Name Value Range Interpretation Code Description Data Stephanie rce(s) Supporting Document(s) [facility] IUTOQc4tCcNUKySbw3ZrFnLkLZFnCM1hwze6H3Y7cIWvU9OcdOWeg2qsT0VyO9RuXYUwTJMPYU8GaMWs jb2 [file] /u7//fg30n0Ur6g0lhpyQes6/X506i+tj8/ QWP9utmRwa+QdqKOfP+moHPrvPVvCfP+xskx5RIN8apJL2L0W7sTdCzBzmw55/g4jeQv6pveJQ50k/jK eai+p+ne90S4CaPwK7x8bhktezlGd41/K6GdWoLe/E9gqsalmWPttNgos8g7isD/1d7zw091s9i2l/u9 r3O/ppBC45t/ncbc51KglD4C0PxXO0LmnrbxU1o3eq nfer/0PnyACgt58HI/K53qv/U76HrQ/hIyos2pJX5t6iGhwSyTS7N3+bgzy7P25eQH6TpAc6/2ll77Y5 uQvc7fqq7vpoGeSuLi23yNvD/Em9mkTR7Hd6/BG6sNOlJzooMemiWWCBa3XP8MQIm/J12fdP+idNbXH2 /Wt3/EowP5zaMJ+yTvvi5Rd6u22xZh129lXF/8zvri nvaVQ3MibU/p+iIdf46Dii7sxISawc+ezp80hNlySnrd/P1ei68YhWTWwP/TPBme55GWR876mg0b173F wz/Zq19inu6O/cYBHzAVobqu35/9fCdIZERP72AQaazJ2Yv0RpC/gE9x7078p76CjF+uT/t+A76bh729 00f2wyDMe41/ja7b7/qo+89Dv/N63eO/67Ou++969p [file] dtQh6pRiNnJOQSN1Xko9ZnHIZwNBBQOa3+IsF1CIS1yLXlNal2UYUhYOokSLFUNd== ID Date Data Source [id number] 04/05/2021 02:07:06 AM EDT [facility] Name Value Range Interpretation Code Description Data Stephanie rce(s) Supporting Document(s) Color of Urine [facility] Clarity of Urine [facility] Specific gravity of Urine by Refractometry automated 1.016 1.003 -1.030 [facility] pH of Urine by Automated test strip 6.0 5.0-8.0 [facility] Protein [Mass/volume] in Urine by Automated test strip Neg [facility] Glucose [Mass/volume] in Urine by Automated test strip Neg [facility] Ketones [Mass/volume] in Urine by Automated test strip Neg [facility] Bilirubin.total [Presence] in Urine by Automated test strip Negative [facility] Hemoglobin [Presence] in Urine by Automated test strip Neg [facility] Leukocyte esterase [Presence] in Urine by Automated test strip Negative [facility] Nitrite [Presence] in Urine by Automated test strip [facility] Leukocytes [#/area] in Urine sediment by Automated count 2 /HPF 0 -5 [facility] Erythrocytes [#/area] in Urine sediment by Automated count 0-3 [facility] Bacteria [#/area] in Urine sediment by Automated count Non e [facility] Epithelial cells.squamous [#/area] in Urine sediment by Auto mated count 4 /HPF None [facility] Mucus [#/area] in Urine sediment by Microscopy low power field None [facility] ID Date Data Source [id number] 04/05/2021 02:27:17 AM EDT [facility] Name Value Range Interpretation Code Description Data Stephanie rce(s) Supporting Document(s) Amphetamine [Presence] in Urine by Screen method Negative [facility] Benzodiazepines [Presence] in Urine by Screen method Negat [facility] Cannabinoids [Presence] in Urine by Screen method Negative [facility] Benzoylecgonine [Presence] in Urine by Screen method Negat [facility] Methadone [Presence] in Urine by Screen method Negative [facility] Opiates [Presence] in Urine by Screen method Negative [facility] Oxycodone [Presence] in Urine by Screen method Negative [facility] Fentanyl+Norfentanyl [Presence] in Urine by Screen method Negative [facility] Service comment [facility] Results below the indicated cutoff (ng/m L), are reported as"Negative." Note: for medical purposes only; not valid for legalor employment testing. ID Date Data Source [id number] 04/05/2021 01:30:00 AM EDT [facility] Name Value Range Interpretation Code Description Data Stephanie rce(s) Supporting Document(s) SARS-CoV-2 RNA 2019 nCoV Real-Time RT-PCR: NOT DETECTED [facility] This lab was ordered by [facility] and reported by [facility]. ID Date Data Source [id number] 04/05/2021 09:15:34 AM EDT [facility] Name Value Range Interpretation Code Description Data Stephanie rce(s) Supporting Document(s) Hemoglobin A1c/Hemoglobin.total in Blood by HPLC 4.7 % 4.0-6.0 [facility] (NOTE)<5.7% Average risk of diabetes (ADA)5.7-6.4% Increased risk of diabetes(ADA)>/= 6.5% Diagnostic for diabetes(ADA) Glucose mean value [Mass/volume] in Blood Estimated fr om glycated hemoglobin 88 mg/dL <126 [facility] ID Date Data Source [id number] 04/05/2021 01:49:12 AM EDT [facility] Name Value Range Interpretation Code Description Data Stephanie rce(s) Supporting Document(s) Leukocytes [#/volume] in Blood by Automated count 7.5 10*3/uL 4.5-13 [facility] Erythrocytes [#/volume] in Blood by Automated count 4.28 10*6/uL 4.1- 5.3 [facility] Hemoglobin [Mass/volume] in Blood 12.6 g/dL 11.5-15.5 [facility] Hematocrit [Volume Fraction] of Blood by Automated count 37.6 % 3 6-45 [facility] Erythrocyte mean corpuscular volume [Entitic volume] by Auto mated count 87.8 fL 80-96 [facility] Erythrocyte mean corpuscular hemoglobin [Entitic mass] by Automated count 29.5 pg 27-33 [facility] Erythrocyte mean corpuscular hemoglobin concentration [Mass/volume] by Automated count 33.5 g/dL 32.0-36.0 [facility] distribution width [Ratio] by Automated count 12.9 % 11.5-14.5 [facility] Platelets [#/volume] in Blood by Automated count 245 10*3/uL 150-400 [facility] Differential cell count method - Blood [facility] Neutrophils/100 leukocytes in Blood by Automated count 55 % [facility] Lymphocytes/100 leukocytes in Blood by Automated count 36 % [facility] Monocytes/100 leukocytes in Blood by Automated count 7 % [facility] Eosinophils/100 leukocytes in Blood by Automated count 2 % [facility] Basophils/100 leukocytes in Blood by Automated count 0 % [facility] Neutrophils [#/volume] in Blood by Automated count 4.13 10*3/uL 1.8-7 .0 [facility] Lymphocytes [#/volume] in Blood by Automated count 2.70 10*3/uL 1.2-4 .0 [facility] Monocytes [#/volume] in Blood by Automated count 0.51 10*3/uL 0-0.8 [facility] Eosinophils [#/volume] in Blood by Automated count 0.11 10*3/uL 0-0.5 [facility] Basophils [#/volume] in Blood by Automated count 0.01 10*3/uL 0-0.2 [facility] Nucleated erythrocytes/100 leukocytes [Ratio] in Blood by Automated count 0 /100{WBCs} 0-0 [facility] ID Date Data Source [id number] 04/05/2021 01:58:23 AM EDT [facility] Name Value Range Interpretation Code Description Data Stephanie rce(s) Supporting Document(s) Prothrombin time (PT) 13.6 s 11.6-14.0 [facility] INR in Platelet poor plasma by Coagulation assay 1.09 [facility] Routine intensity oral anticoagulation I NR is typically 2.0-3.0. Target INR must be clinically individualized. ID Date Data Source [id number] 04/05/2021 02:22:57 AM [facility] Name Value Range Interpretation Code Description Data Stephanie rce(s) Supporting Document(s) Acetaminophen [Mass/volume] in Serum or Plasma 10.0-30.0 L [facility] ID Date Data Source [id number] 04/05/2021 02:22:57 AM [facility] Value Range Interpretation Code Description Data Stephanie rce(s) Supporting Document(s) Thyrotropin [Units/volume] in Serum or Plasma 2.870 u[IU]/mL 0.270-4. 200 [facility] ID Date Data Source [id number] 04/05/2021 02:22:57 AM [facility] Value Range Interpretation Code Description Data Stephanie rce(s) Supporting Document(s) Albumin [Mass/volume] in Serum or Plasma by Bromocresol green (BCG) dye binding method 4.2 g/dL 3.5-5.2 [facility] Bilirubin.total [Mass/volume] in Serum or Plasma 0.2 mg/dL <1.2 [facility] Calcium [Mass/volume] in Serum or Plasma 8.8 mg/dL 8.6-10.0 [facility] Chloride [Moles/volume] in Serum or Plasma 107 mmol/L 98-107 [facility] Creatinine [Mass/volume] in Serum or Plasma 0.59 mg/dL 0.50-0.90 [facility] Glucose [Mass/volume] in Serum or Plasma 91 mg/dL 70-140 [facility] Alkaline phosphatase [Enzymatic activity/volume] in Serum or Plasma 113 U/L 35-104 H [facility] Potassium [Moles/volume] in Serum or Plasma 4.0 mmol/L 3.4-5.1 [facility] Protein [Mass/volume] in Serum or Plasma 7.3 g/dL 6.4-8.3 [facility] Sodium [Moles/volume] in Serum or Plasma 140 mmol/L 136-145 [facility] Aspartate aminotransferase [Enzymatic activity/volume] in Serum or Plasma 29 U/L <32 [facility] Urea nitrogen [Mass/volume] in Serum or Plasma 13 mg/dL 6-20 [facility] Osmolality of Serum or Plasma by calculation 290 mosm/kg 275-300 [facility] Creatinine/Urea nitrogen [Mass Ratio] in Serum or Plasma 22 [facility] Bicarbonate [Moles/volume] in Serum 23 mmol/L 22-29 [facility] Alanine aminotransferase [Enzymatic activity/volume] in Seru m or Plasma 40 U/L <33 H [facility] Anion gap 3 in Serum or Plasma 10 mmol/L 8-15 [facility] Glomerular filtration rate/1.73 sq M pre dicted among non-blacks [Volume Rate/Area] in Serum or Plasma by Creatinine-based formula (MDRD) >6 0 [facility] Glomerular filtration rate/1.73 sq M pre dicted among blacks [Volume Rate/Area] in Serum or Plasma by Creatinine-based formula (MDRD) >60 [facility] ID Date Data Source [id number] 04/05/2021 02:22:57 AM EDT [facility] Value Range Interpretation Code Description Data Stephanie rce(s) Supporting Document(s) Ethanol [Mass/volume] in Serum or Plasma Negative [facility] ID Date Data Source [id number] 04/05/2021 02:22:57 AM [facility] Value Range Interpretation Code Description Data Stephanie rce(s) Supporting Document(s) Salicylates [Mass/volume] in Serum or Plasma 3.0-30.0 L [facility] ID Date Data Source [id number] 04/05/2021 08:42:04 AM [facility] Value Range Interpretation Code Description Data Stephanie rce(s) Supporting Document(s) Choriogonadotropin.beta subunit [Moles/volume] in Serum or Plasma <5 [facility] ID Date Data Source [id number] 04/05/2021 08:53:54 AM [facility] Value Range Interpretation Code Description Data Stephanie rce(s) Supporting Document(s) Cholesterol [Mass/volume] in Serum or Plasma 155 mg/dL <200 [facility] Triglyceride [Mass/volume] in Serum or Plasma 118 mg/dL <150 [facility] Cholesterol in HDL [Mass/volume] in Serum or Plasma 40 mg/dL >50 L [facility] Cholesterol in LDL [Mass/volume] in Serum or Plasma by calcu lation 91 mg/dL <100 [facility] Cholesterol in VLDL [Mass/volume] in Serum or Plasma by calc ulation 24 mg/dl 16-42 [facility] Cholesterol non HDL [Mass/volume] in Serum or Plasma 115 mg/dL <130 [facility] ID Date Data Source [id number] 04/05/2021 02:51:14 AM EDT [facility] Service Cmnt XXX-Imp : NoneRespiratory P CR Panel : PCR ResultsMicroorganism XXX Cult : See Labs Tab for 2019 nCoV RT-PCR resultsHAdV DNA QI CORDELL+non-probe : Not DetectedHCoV 229ERNA Nph QI CORDELL+non-probe : Not DetectedHCoV NIA4LKD Nph QI CORDELL+non-probe : Not GlbazsczHKgCFA28 RNA Nph QI CORDELL+non-probe : Not QobullhzVPsHVP52 RNA Upper resp QI CORDELL+probe : Not DetectedhMPV RNA Nph QINAA+non-probe : Not DetectedRV+EV RNA Nph QI CORDELL+non-probe : Not DetectedFLUAV RNA Nph QI CRODELL+ non-probe : Not DetectedFLUBV RNA Nph QI CORDELL+non-probe :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 -increased,depressed mood, non-compliance, poor impulse control, sleep disturbance -insomnia,suicidal ideation with plan for hanging, jumping off a structure, pills.Objective:Patient is cooperative, Speech is normal. Affect is appropriate. Mental statusexam: Patients appearance is unkempt, Patient's behavior is normal, Speech is rapid.Affectis appropriate. Mood is depressed. Perception is normal. Appetite ischaracterized bybinges. Memory is good. Energy level is normal. Content of thought isdepressive. .Thought Process is intact. Cognitive level is Oriented to person,place andtime.Insight / Judgment is poor. Rapport with interviewer is good. SuicidalIdeation: Planis hanging. jumping off a structure. pills. Homicidal Ideation: Denies.02:56 Narrative This insurance writer spoke with Dr. Mclean, Dr. Mclean recommendskeeping Pt in the ED hfat this time and presenting Pt to the psychiatrist on during the day.Consultation:Psych MD informed of patient's status at 02:56, ED MD notified of patientsstatus at02:56. Disposition: Medically cleared for disposition by Dr Argueta.PsychiatricConsult is performed by phone with Dr Mclean. The patient is not a servicemember ormilitary dependent. [place] Suicide Severity Rating Scale: Suicidal IdeationRating 3;Intensity of Ideations Rating 15; Suicidal Behavior Rating 0.07:39 Narrative PSA role handed off to this insurance writer at 0730 AM.hf07:53 Narrative PSA role handed off to this insurance writer at 0730 AM.em210:49 Narrative Pt is sleeping. Sitter is present. Safety is maintained .em212:43 Narrative Pt is sleeping. Sitter is present. Safety is maintained.em217:17 Legal Status: Patient's legal status will be Emergency: 9.39. DSM-V DXAxis I ml3emjdvidpt: Other Borderline Personality Disorder [place] II diagnosis: DeferredAxis IIIdiagnosis: None. [place] IV diagnosis: poor coping skills. InsurancePre-Certification:Not Required. [facility] dmission Criteria: The patient is experiencing suicidalideation.The patient requires continuous observation and/or control to protect self,others orproperty. The patient's care requires a multi-modal treatment plan under closesupervision and coordination due to the complexity and severity of thepatient'ssymptoms. The patient requires administration and monitoring of psychoactivemedications by skilled medical providers due to the side effects of thepsychoactivemedications or significant dosage adjustments.20:38 Narrative Pt eloped to the ED ramp outside prior to 1755 PM. Pt wasbrought back into em2the ED by ED Security. ED Staff and PSA attempted to talk with pt but she wouldnotreason and started yelling at the ED Doctor, Dr. Strauss. Pt states "I wantto killthat physician for wanting to medicate me." Pt repeated this multiple times.Staff heldher down. Pt willingly took a shot of medicine to calm down. Pt was laying downfor afew minutes and started to run over to the ED door again. Staff stopped her andbroughther to the hallway bed. Pt continued to elevate her voice at staff. Pt wasrestrainedand medicated.03/2118:11 Legal Status: Patient's legal status will be Emergency: 9.39. Commitmentpapers are pv9hodxtdvdg. Pt has been provided a copy of their legal status and rights. DSM- VDX AxisI diagnosis: Bipolar D/O, depressed Post Traumatic Stress Disorder. Transitionof careto Pt will be transported to [facility] with [facility] and [facility].Psych:03/1923:37 Subjective: Patient's mood is elevated, Delusions are denied,Hallucinations are denied us7Jjjsnl thoughts of suicide. Plan for suicide is to hang self or overdose.Objective:Patient is restless, Speech is rambling, Affect is appropriate. Interventions:Removedpersonal items and placed in bag. Patient placed in hospital gown. Searchedperson fordangerous items. Observation Level Level 3.Vital Signs:23:34 BP 104 / 79; Pulse 77; Resp 18; Temp 98.7; Pulse Ox 96% ; Weight 136.53kg; Height 5 jw5ft. 6 in. ;03/2118:40 BP 122 / 69; Pulse 79; Resp 17; Temp 98.4(TE); Pulse Ox 98% on R/A; Pain0/10; jl03/1923:34 Body Mass Index 48.58 (136.53 kg, 167.64 cm)jw5003/2118:40 Pain Scale: AdultjlED Course:03/1923:27 Patient arrived in ED.jw523:28 NONE, - Per Patient is Private Physician.jw523:30 Triage completed.jw523:42 Nils Argueta MD is Attending Physician.th423:44 Patient has correct armband on for positive identification. Bed in lowposition. Sitter jw5at bedside.23:45 No Physician assisted procedures completed.jw523:45 Labs drawn. (by ED staff). Nasal Swab Collected by Nurse.jw523:55 Fortunato Mark, RN is Primary Nurse.jw509:55 S itter at bedside.jw503:37 Sitter at bedside.jw505:23 Sitter at bedside.jw506:53 Sitter at bedside.jw519:17 Primary Nurse role handed off by Fortunato Mark RNjw5003/2100:29 Fortunato Mark RN is Primary Nurse.jw502:27 Sitter at bedside.jw504:17 Sitter at bedside.jw505:48 Sitter at bedside.jw507:17 Primary Nurse role handed off by Fortunato Mark, RNfbg07:33 Diet tray given.ef109:10 Attending Physician role handed off by Nils Argueta MDse09:10 Kylie العلي MD is Attending Physician.se10:33 Appears to be sleeping.ef118:32 Brooklyn Oneill MD is Hospitalizing Provider.seAdministered Medications::48 Drug: OLANZapine 10 mg [olanzapine 10 mg tablet (1 tabs)] Route: PO;jw504:30 Follow up: Response: No adverse reaction; No change in xqoxepwsawh461:08 Drug: Geodon 20 mg [ziprasidone 20 mg/mL (final concentration)intramuscular solution jw5(1 mL)] Route: IM; Site: left deltoid;07:13 Follow up: Response: No adverse vzkhovtiue602/2100:00 Drug: Geodon 20 mg [ziprasidone 20 mg/mL (final concentration)intramuscular solution tp2(1 mL)] Route: IM; Site: left deltoid;00:30 Follow up: Response: No adverse :00 Drug: LORazepam 2 mg [lorazepam 2 mg/mL injection solution (1 mL)] Route:IM; Site: vz1yezlr deltoid;00:30 Follow up: Response: No adverse bybhzbeadd540:00 Drug: diphenhydrAMINE 50 mg [diphenhydramine 50 mg/mL injection solution(1 mL)] Route: tp2IM; Site: right deltoid;00:30 Follow up: Response: No adverse lbwofuohhz196:22 Drug: LORazepam 2 mg [lorazepam 2 mg/mL injection solution (1 mL)] Route:IM; Site: jlright vastus lateralis;10:33 Follow up: Response: Anxiety pwzxyxlqmkb332:23 Drug: diphenhydrAMINE 50 mg [diphenhydramine 50 mg/mL injection solution(1 mL)] Route: jlIM; Site: right vastus lateralis;10:33 Follow up: Response: Anxiety prtuduxbcqb549:24 Drug: Geodon 20 mg [ziprasidone 20 mg/mL (final concentration)intramuscular solution jl(1 mL)] Route: IM; Site: right vastus lateralis;10:33 Follow up: Response: Anxiety rnwywfnvcju1Xttftkb:18:06 Disposition: Admitted to Ynhxfjp594:06 Condition: stable, Provider notified of abnormal vital signs.18:06 Discharge instructions given to patient, Instructed on need for admit,Demonstratedunderstanding of instructions.18:06 Discharge Assessment: Patient verbalized understanding of dispositioninstructions.Patient has no functional deficits.18:33 Decision to Hospitalize by Provider.se18:53 Patient left the ED.jlSignatures:Vincenzo Luis RN JOSE LUIS fbgGeneva General Hospitaldivina, MD MD Ladan Espinal Todd, MD MD no1Mbdme, JOSE LUIS Bucio RN ad4CitykijtAmi Medrano RN JOSE LUIS ju3CoWsqwpBertha Collier RN RN jlBreonna Marie, RN JOSE LUIS gt3RifouDanae dodd RN RN xl9LslfxPearl GruberVani Levine hfCorrections: (The following items were deleted from the chart)03/1923:42 23:34 BP 104 / 79; Pulse 77bpm; Resp 18bpm; Pulse Ox 96%; Temp 98.7F;104.33 kg; Height jw55 ft. 6 in.; BMI: 37.1; jw509/2003:50 03:24 Reassessment: after PSA informed patient that she would have towait till morning jw5and have the morning psychiatrist dec jacques if she would need to be admittedpatientbecame escalated pushing her way to the door, patient was able to be redirectedwithoutmuch effort. Patient very angry yelling "I know that Dylan is the one going tocomedown and see me and going to just discharge me like she always does! I justwant helpbecause I am suicidal and need help I should not have to fight this hard justbecauseof my history." . jw509/2105:46 05:42 Reassessment: Patient tried hanging herself off of the bed bysticking her head lr4dufffeo the guard rail, very aggressive and tried to hurt staff, called staff"dumbsluts" and told us to "go kill ourselves". MD Notified, placed in 4 pointrestraints.tp2 Name Value Range Interpretation Code Description [facility] Supporting Document(s) ID Date Data Source [id number] 03/28/2021 12:00:[address] [facility] Name Value Range Interpretation Code Description Data [facility] rce(s) Supporting Document(s) Sodium 139 mmol/L 136-145 Normal (applies to non-numeric resul ts) [facility] Potassium 3.5-5.[address] [facility] spital Chloride 105 mmol/L 98-107 Normal (applies to non-numeric resul ts) [facility] Carbon Dioxide CO2 21-32 Normal (applies to non-numer ic results) [facility] Anion Gap 5.0-16.0 Normal (applies to non-numeric resul ts) [facility] BUN 21 mg/dL 7-18 Above high normal [facility] ospital Creatinine,Serum 0.7-1.2 Normal (applies to non-numeric results) [facility] GFR >60 Normal (applies to non-numeric results) [facility] Glucose Level 137 mg/dL 60-99 Above high normal [facility] Reference range is only applicable when patient is fasting Note the following drug interference: Sulfasalazine Sulfapyridine Can see falsely depressed Can see falsely elevated result with up to 17% results with up to 11% decrease in measurement increase in measurement Recommend patients be collected for this test prior to administration of either drug. Calcium 8.5-10.[address] [facility] spital Bilirubin,Total 0.1-1.9 Normal (applies to non-numeric results) [facility] SGOT(AST) 20 U/L 15-37 Normal (applies to non-numeric resul ts) [facility] Note the following drug interference: Sulfasalazine Sulfapyridine Can see falsely depressed Can see falsely elevated result with up to 10% results with up to 10% decrease in measurement increase in measurement Recommend patients be collected for this test prior to administration of either drug. SGPT(ALT) 48 U/L 12-78 Normal (applies to non-numeric resul ts) [facility] Note the following drug interference: Sulfasalazine Sulfapyridine Can see falsely depressed Can see falsely elevated result with up to 29% results with up to 10% decrease in measurement increase in measurement Recommend patients be collected for this test prior to administration of either drug. Alkaline Phosphatase 114 U/L 38-126 Normal (applies to non-num deena results) [facility] can increase Alkaline Phosp le vels up to 2 times the normal adult value. Normal values for children and adolescents are 2 to 3 times the normal adult value. Total Protein 6.0-8.2 Normal (applies to non-numeric re sults) [facility] Albumin Level 3.4-5.0 Normal (applies to non-numeric re sults) [facility] ID Date Data Source [id number] 03/28/2021 12:00:[address] [facility] Name Value Range Interpretation Code Description Data Stephanie rce(s) Supporting Document(s) Troponin I 0.000-0.056 Normal (applies to non-numeric resu lts) [facility] ID Date Data Source [id number] 03/28/2021 12:00:[address] [facility] Name Value Range Interpretation Code Description Data Stephanie rce(s) Supporting Document(s) Magnesium 1.8-2.4 Normal (applies to non-numeric resul ts) [facility] ID Date Data Source [id number] 03/28/2021 12:00:[address] [facility] Name Value Range Interpretation Code Description Data Stephanie rce(s) Supporting Document(s) Salicylate 2.8-20.0 Below low normal [facility] ID Date Data Source [id number] 03/28/2021 12:00:[address] [facility] Name Value Range Interpretation Code Description Data Stephanie rce(s) Supporting Document(s) Acetaminophen 10.0-30.0 Below low normal [facility] ID Date Data Source [id number] [facility] Range Interpretation Code Description Data Stephanie rce(s) Supporting Document(s) Ethanol Less than 10.0 Normal (applies to non-numeric r esults) [facility] ID Date Data Source [id number] 03/27/2021 11:36:[address] [facility] Name Value Range Interpretation Code Description Data Stephanie rce(s) Supporting Document(s) White Blood Count 3.5-10.5 Normal (applies to non-numeri c results) [facility] Red Blood Count 3.90-5.00 Normal (applies to non-numeric results) [facility] Hemoglobin 12.0-15.5 Normal (applies to non-numeric resul ts) [facility] Hematocrit 34.9-44.5 Normal (applies to non-numeric resul ts) [facility] Mean Corpuscular Volume 81.2-95.1 Normal (applies to non- numeric results) [facility] Mean Corpuscular Hgb 25.6-32.2 Normal (applies to non-num deena results) [facility] Mean Corpuscular Hgb Conc 32.0-36.0 Normal (applies to no n-numeric results) [facility] Red Cell Distribution Width 11.9-15.5 Normal (appli es to non-numeric results) [facility] Platelet Count 254 x10 3/uL 150-450 Normal (applies to non-numeric results) [facility] Mean Platelet Volume 9.4-12.4 Normal (applies to non-num deena results) [facility] Neutrophils% (Auto) 31.0-71.0 Normal (applies to non-nume frank results) [facility] Lymphocytes% (Auto) 20.0-55.0 Normal (applies to non-nume frank results) [facility] Monocytes% (Auto) 4.0-12.0 Normal (applies to non-numeri c results) [facility] Eosinophils% (Auto) 1.0-8.0 Normal (applies to non-nume frank results) [facility] Basophils% (Auto) 0.0-2.0 Normal (applies to non-numeri c results) [facility] Immature Granulocytes% (Auto) 0.0-2.0 Normal (alexander lies to non-numeric results) [facility] Neutrophils# (Auto) 1.50-6.20 Normal (applies to non-nume frank results) [facility] Lymphocytes# (Auto) 1.20-4.00 Normal (applies to non-nume frank results) [facility] Monocytes# (Auto) 0.00-0.90 Normal (applies to non-numeri c results) [facility] Eosinophils# (Auto) 0.00-0.50 Normal (applies to non-nume frank results) [facility] Basophils# (Auto) 0.00-0.20 Normal (applies to non-numeri c results) [facility] Immature Granulocytes# (Auto) 0.00-7.00 No rmal (applies to non-numeric results) [facility] ID Date Data Source [id number] 03/28/2021 12:21:[address] [facility] First test? UNKNOWNEmployed in [facility]? UNKNOWNSymptomatic per CDC? UNKNOWNIf yes date of onset? 03/27/21Hospitalized? UNKNOWNICU? UNKNOWNResident in congregated care? ex residential, [facility] UNKNOWN? UNKNOWN Name Value Range Interpretation Code Description Data Stephanie rce(s) Supporting Document(s) SARS-CoV-2 RNA Negative Normal (applies to non-numeric r esults) [facility] Negative results should be treated as pr esumptive and, if inconsistent with clinical signs and symptoms or necessary for patient management, should be tested with different authorized or cleared molecular tests. Negative results do not preclude SARS-CoV-2 infection and should not be used as the sole basis for patient management decisions. Negative results should be considered in the context of a patient???s recent exposures, history and the presence of clinical signs and symptoms consistent with COVID-19. This test has not been FDA cleared or approved; this test has been authorized by FDA under an Emergency Use Authorization for use by laboratories certified under the Clinical Laboratory Improvement Amendments of 1988 (CLIA), 42 U.S.C. ???263a, to perform moderate complexity/high complexity tests and at the Point of Care (POC), i.e., in patient care settings operating under a CLIA Certificate of Waiver, Certificate of Compliance, or Certificate of Accreditation. Factsheets for healthcare providers: https://www.fda.gov/media/017859/download Factsheets for patients: https://www.fda.gov/media/027761/download The ID NOW Instrument is a rapid molecular in vitro diagnostic test utilizing an isothermal nucleic acid amplification technology intended for the qualitative detection of nucleic acid from the SARS-CoV-2 viral RNA. THIS IS A STATE REPORTABLE COMMUNICABLE DISEASE. Manual entry verified by Aysha Andrade 03/28/21 0020 ID Date Data Source [id number] 03/28/2021 12:05:[address] [facility] Name Value Range Interpretation Code Description Data Stephanie rce(s) Supporting Document(s) HCG,Ur Negative Normal (applies to non-numeric results) [facility] ID Date Data Source [id number] 03/27/2021 11:58:[address] [facility] Name Value Range Interpretation Code Description Data Stephanie rce(s) Supporting Document(s) UDS Benzodiazepines Screen Negative Normal (applies to n on-numeric results) [facility] UDS Cocaine Screen Negative Normal (applies to non-numer ic results) [facility] UDS Ampetamine Screen Negative Normal (applies to non-nu meric results) [facility] UDS Cannabinoids Screen Negative Normal (applies to non- numeric results) [facility] UDS Opiates Screen Negative Normal (applies to non-numer ic results) [facility] UDS Barbiturates Screen Negative Normal (applies to non- numeric results) [facility] Threshold Levels Benzodiazepine 200 ng/mL Cocaine 300 ng/mL Amphetamines 1000 ng/mL Cannabinoids (THC) 50 ng/mL Opiates 300 ng/mL Barbiturates 200 ng/mL All positive findings are presumptive and unconfirmed. Confirmation of positive results are performed only at request of provider. Unconfirmed results must not be used for non-medical purposes (i.e. preemployment and legal purposes) ID Date Data Source [id number] 03/27/2021 11:37:[address] [facility] Collected By: Nurse Name Value Range Interpretation Code Description Data Stephanie rce(s) Supporting Document(s) Color,Urine Colorl-Dk Y Normal (applies to non-numeric res ults) [facility] Clarity,Urine Clear Normal (applies to non-numeric re sults) [facility] Specific [place],Urine 1.005-1.030 Fritz [facility] pH,Urine 5.0-8.0 Normal (applies to non-numeric resul ts) [facility] Protein,Urine Negative Normal (applies to non-numeric re sults) [facility] Glucose,Urine Negative Normal (applies to non-numeric re sults) [facility] Ketones,Urine Negative Normal (applies to non-numeric re sults) [facility] Blood,Urine Negative Normal (applies to non-numeric resu lts) [facility] Bilirubin,Urine Negative Normal (applies to non-numeric results) [facility] Urobilinogen,Urine 0.2-1.0 Normal (applies to non-numer ic results) [facility] Leukocyte Esterase,Urine Negative Normal (applies to non -numeric results) [facility] Nitrite,Urine Negative Normal (applies to non-numeric re sults) [facility] ID Date Data Source [id number] 03/27/2021 10:35:00 [facility] Name Value Range Interpretation Code Description Data Stephanie rce(s) Supporting Document(s) Respiratory specimen severe acute respir atory syndrome coronavirus 2 (SARS-CoV-2) RNA Negative (qualifier value) [facility] and reported by . ID Date Data Source [id number] 03/25/2021 09:40:00 PM EDT [facility] Name Value Range Interpretation Code Description Data Stephanie rce(s) Supporting Document(s) Respiratory specimen severe acute respir atory syndrome coronavirus 2 (SARS-CoV-2) RNA Negative (qualifier value) [facility] and reported by . ID Date Data Source [id number] 03/25/2021 10:10:[address] [facility] Collected By: Nurse Initials: cs Time Collected: 2142 Collected By: Nurse Initials: cs Time Collected: 2142 Collected By: Nurse Initials: cs Time Collected: 2142 Name Value Range Interpretation Code Description Data Stephanie rce(s) Supporting Document(s) Color,Urine Colorl-Dk Y Normal (applies to non-numeric res ults) [facility] Clarity,Urine Clear Normal (applies to non-numeric re sults) [facility] Specific [place],Urine 1.005-1.030 [facility] pH,Urine 5.0-8.0 Normal (applies to non-numeric resul ts) [facility] Protein,Urine Negative [facility] Glucose,Urine Negative Normal (applies to non-numeric re sults) [facility] Ketones,Urine Negative Normal (applies to non-numeric re sults) [facility] Blood,Urine Negative Normal (applies to non-numeric resu lts) [facility] Bilirubin,Urine Negative [facility] pital Urobilinogen,Urine 0.2-1.0 Normal (applies to non-numer ic results) [facility] Leukocyte Esterase,Urine Negative Normal (applies to non -numeric results) [facility] Nitrite,Urine Negative Normal (applies to non-numeric re sults) [facility] ID Date Data Source [id number] 03/25/2021 10:10:[address] [facility] Collected By: Nurse Initials: cs Time Collected: 2142 Collected By: Nurse Initials: cs Time Collected: 2142 Collected By: Nurse Initials: cs Time Collected: 2142 Name Value Range Interpretation Code Description Data Stephanie rce(s) Supporting Document(s) RBC,Urine None Seen [facility] WBC,Urine None Seen [facility] Casts,Urine None Seen Normal (applies to non-numeric resu lts) [facility] Epithelial Cells,Urine None - Few Normal (applies to non-n umeric results) [facility] Squamous Cells,Urine None Seen [facility] Bacteria,Urine None [facility] ID Date Data Source [id number] [facility]: Nurse Initials: cs Time Collected: 2142 Collected By: Nurse Initials: cs Time Collected: 2142 Collected By: Nurse Initials: cs Time Collected: 2142 Name Value Range Interpretation Code Description Data Stephanie rce(s) Supporting Document(s) HCG,Ur Negative Normal (applies to non-numeric results) [facility] This is a Corrected Result --- 03/25/212206 --- Ur HCG previously reported as: Negative ID Date Data Source [id number] 03/25/2021 10:04:[address] [facility] Name Value Range Interpretation Code Description Data Stephanie rce(s) Supporting Document(s) SARS-CoV-2 RNA Negative Normal (applies to non-numeric r esults) [facility] Negative results should be treated as pr esumptive and, if inconsistent with clinical signs and symptoms or necessary for patient management, should be tested with different authorized or cleared molecular tests. Negative results do not preclude SARS-CoV-2 infection and should not be used as the sole basis for patient management decisions. Negative results should be considered in the context of a patient???s recent exposures, history and the presence of clinical signs and symptoms consistent with COVID-19. This test has not been FDA cleared or approved; this test has been authorized by FDA under an Emergency Use Authorization for use by laboratories certified under the Clinical Laboratory Improvement Amendments of 1988 (CLIA), 42 U.S.C. ???263a, to perform moderate complexity/high complexity tests and at the Point of Care (POC), i.e., in patient care settings operating under a CLIA Certificate of Waiver, Certificate of Compliance, or Certificate of Accreditation. Factsheets for healthcare providers: https://www.fda.gov/media/289876/download Factsheets for patients: https://www.fda.gov/media/187691/download The ID NOW Instrument is a rapid molecular in vitro diagnostic test utilizing an isothermal nucleic acid amplification technology intended for the qualitative detection of nucleic acid from the SARS-CoV-2 viral RNA. THIS IS A STATE REPORTABLE COMMUNICABLE DISEASE. Manual entry verified by Rachel Leslie 03/25/212202 ID Date Data Source [id number] 03/25/2021 10:04:[address] [facility] Name Value Range Interpretation Code Description Data Stephanie rce(s) Supporting Document(s) UDS Benzodiazepines Screen Negative Normal (applies to n on-numeric results) [facility] UDS Cocaine Screen Negative Normal (applies to non-numer ic results) [facility] UDS Ampetamine Screen Negative Normal (applies to non-nu meric results) [facility] UDS Cannabinoids Screen Negative Normal (applies to non- numeric results) [facility] UDS Opiates Screen Negative Normal (applies to non-numer ic results) [facility] UDS Barbiturates Screen Negative Normal (applies to non- numeric results) [facility] Threshold Levels Benzodiazepine 200 ng/mL Cocaine 300 ng/mL Amphetamines 1000 ng/mL Cannabinoids (THC) 50 ng/mL Opiates 300 ng/mL Barbiturates 200 ng/mL All positive findings are presumptive and unconfirmed. Confirmation of positive results are performed only at request of provider. Unconfirmed results must not be used for non-medical purposes (i.e. preemployment and legal purposes) ID Date Data Source [id number] 03/25/2021 09:47:[address] [facility] Name Value Range Interpretation Code Description Data Stephanie rce(s) Supporting Document(s) Ethanol Less than 10.0 Normal (applies to non-numeric r esults) [facility] ID Date Data Source [id number] 03/25/2021 09:17:[address] [facility] Name Value Range Interpretation Code Description Data Stephanie rce(s) Supporting Document(s) White Blood Count 3.5-10.5 Normal (applies to non-numeri c results) [facility] Red Blood Count 3.90-5.00 Normal (applies to non-numeric results) [facility] Hemoglobin 12.0-15.5 Normal (applies to non-numeric resul ts) [facility] Hematocrit 34.9-44.5 Normal (applies to non-numeric resul ts) [facility] Mean Corpuscular Volume 81.2-95.1 Normal (applies to non- numeric results) [facility] Mean Corpuscular Hgb 25.6-32.2 Normal (applies to non-num deena results) [facility] Mean Corpuscular Hgb Conc 32.0-36.0 Normal (applies to no n-numeric results) [facility] Red Cell Distribution Width 11.9-15.5 Normal (appli es to non-numeric results) [facility] Platelet Count 264 x10 3/uL 150-450 Normal (applies to non-numeric results) [facility] Mean Platelet Volume 9.4-12.4 Normal (applies to non-num deena results) [facility] Neutrophils% (Auto) 31.0-71.0 Normal (applies to non-nume frank results) [facility] Lymphocytes% (Auto) 20.0-55.0 Normal (applies to non-nume frank results) [facility] Monocytes% (Auto) 4.0-12.0 Normal (applies to non-numeri c results) [facility] Eosinophils% (Auto) 1.0-8.0 Normal (applies to non-nume frank results) [facility] Basophils% (Auto) 0.0-2.0 Normal (applies to non-numeri c results) [facility] Immature Granulocytes% (Auto) 0.0-2.0 Normal (alexander lies to non-numeric results) [facility] Neutrophils# (Auto) 1.50-6.20 Normal (applies to non-nume frank results) [facility] Lymphocytes# (Auto) 1.20-4.00 Normal (applies to non-nume frank results) [facility] Monocytes# (Auto) 0.00-0.90 Normal (applies to non-numeri c results) [facility] Eosinophils# (Auto) 0.00-0.50 Normal (applies to non-nume frank results) [facility] Basophils# (Auto) 0.00-0.20 Normal (applies to non-numeri c results) [facility] Immature Granulocytes# (Auto) 0.00-7.00 No rmal (applies to non-numeric results) [facility] ID Date Data Source [id number] 03/25/2021 09:55:[address] [facility] Name Value Range Interpretation Code Description Data Stephanie rce(s) Supporting Document(s) Sodium 141 mmol/L 136-145 Normal (applies to non-numeric resul ts) [facility] Potassium 3.5-5.1 Normal (applies to non-numeric resul ts) [facility] Chloride 106 mmol/L 98-107 Normal (applies to non-numeric resul ts) [facility] Carbon Dioxide CO2 21-32 Normal (applies to non-numer ic results) [facility] Anion Gap 5.0-16.0 Normal (applies to non-numeric resul ts) [facility] BUN 12 mg/dL 7-18 Normal (applies to non-numeric results) [facility] Creatinine,Serum 0.7-1.2 Normal (applies to non-numeric results) [facility] GFR >60 Normal (applies to non-numeric results) [facility] Glucose Level 96 mg/dL 60-99 Normal (applies to non-numeric re sults) [facility] Reference range is only applicable when patient is fasting Note the following drug interference: Sulfasalazine Sulfapyridine Can see falsely depressed Can see falsely elevated result with up to 17% results with up to 11% decrease in measurement increase in measurement Recommend patients be collected for this test prior to administration of either drug. Calcium 8.5-10.1 Normal (applies to non-numeric resul ts) [facility] Bilirubin,Total 0.1-1.9 Normal (applies to non-numeric results) [facility] SGOT(AST) 27 U/L 15-37 Normal (applies to non-numeric resul ts) [facility] Note the following drug interference: Sulfasalazine Sulfapyridine Can see falsely depressed Can see falsely elevated result with up to 10% results with up to 10% decrease in measurement increase in measurement Recommend patients be collected for this test prior to administration of either drug. SGPT(ALT) 52 U/L 12-78 Normal (applies to non-numeric resul ts) [facility] Note the following drug interference: Sulfasalazine Sulfapyridine Can see falsely depressed Can see falsely elevated result with up to 29% results with up to 10% decrease in measurement increase in measurement Recommend patients be collected for this test prior to administration of either drug. Alkaline Phosphatase 126 U/L 38-126 Normal (applies to non-num deena results) [facility] can increase Alkaline Phosp le vels up to 2 times the normal adult value. Normal values for children and adolescents are 2 to 3 times the normal adult value. Total Protein 6.0-8.2 Normal (applies to non-numeric re sults) [facility] Albumin Level 3.4-5.0 Normal (applies to non-numeric re sults) [facility] ID Date Data Source [id number] 03/25/2021 09:55:[address] [facility] Name Value Range Interpretation Code Description Data Stephanie rce(s) Supporting Document(s) Troponin I 0.000-0.056 Normal (applies to non-numeric resu lts) [facility] ID Date Data Source [id number] 03/25/2021 09:55:[address] [facility] Name Value Range Interpretation Code Description Data Stephanie rce(s) Supporting Document(s) Magnesium 1.8-2.4 Normal (applies to non-numeric resul ts) [facility] ID Date Data Source [id number] 03/25/2021 09:55:[address] [facility] Name Value Range Interpretation Code Description Data Stephanie rce(s) Supporting Document(s) Salicylate 2.8-20.0 Below low normal [facility] ID Date Data Source [id number] 03/25/2021 09:55:[address] [facility] Name Value Range Interpretation Code Description Data Stephanie rce(s) Supporting Document(s) Acetaminophen 10.0-30.0 Below low normal [facility] ID Date Data Source [id number] 03/25/2021 07:15:08 AM EDT [facility] Name Value Range Interpretation Code Description Data Stephanie rce(s) Supporting Document(s) Discharge Summary [facility] VTXQBr9gYcVSRpHz32/JBPvwOZVch8PuMIptDEr4OLjvOZKzY2WpUNR2hV8oXXF6DXkTPrWpVhHoSCY5 lbm [file] plFT1J8vofiPJlTEkSDUj++/senior materials scientist//pz0MepqUlCyyrXmLRqrYdi/hV3WI3Ire8CBZ/WOIEjGslPHMFZG6 [file] WGN1wPYySs0BBgKzGMGFQqHiOQ2CXSx= ID Date Data Source [id number] 03/24/2021 09:16:00 AM [facility]T [facility] Ex[facility] Number: [id number] Reported By: - SHIVAM OSCAR MD Signed By: SHIVAM OSCAR MD Name Value Range Interpretation Code Description Data Stephanie rce(s) Supporting Document(s) ID Date Data Source [id number] 03/21/2021 04:51:30 PM EDT [facility] Name Value Range Interpretation Code Description Data Stephanie rce(s) Supporting Document(s) History and Physical [facility] GCWHXv6vRpXWNjKf69/GIHhyHOWws1UrGWggRWm2NFobVVUlS5CnLZV1eK8zOPW7FHbCGeDoPlZdQQTo lbm [file] AgICAgICAgICAgICAgICAgICAgICAgICAgICAgICAgICAgICAgICAgICAgICAgICAgICAgICAgICAgIC GoVCCiTU0SREKoCFOiWGRnOMQzQYZkAEPeJRGbNFNc ICAgICAgICAgICAgICAgICAgICAgICAgICAgICAgICAgICAgICAgICAgICAgICAgICAgICAgICAgICAg SROpGSUjOVEzCMYnXOOgCX2KLWNxNIPtQMIeUTVtGUKkMJXnEVNlZRYsZFXwMQFePEPyUVJpGUWiLDSx ICAgICAgICAgICAgICAgICAgICAgICAgICAgICAgIC YcKTVhEUIkQSMdQODfBNGvMJSiSIGlSGDrJZ2BDHTbAKRhQCKwZRPuWVRkNWLfOAGoUVOkCNLyJSSmIV AgICAgICAgICAgICAgICAgICAgICAgICAgICAgICAgICAgICAgICAgICAgICAgICAgICAgICAgICAgIC UlHOPiLODcQF1RXISgXLXrGVPeANHlMQDmBGDfFBHx ICAgICAgICAgICAgICAgICAgICAgICAgICAgICAgICAgICAgICAgICAgICAgICAgICAgICAgICAgICAg NTYpGHLsRECdPHPmQYJtTWMiJX5OVNQwQBMnZPYrQFRsJHJeZDXiMKTgJZVeGPSjCUHeGUGyXUPzYDUf ICAgICAgICAgICAgICAgICAgICAgICAgICAgICAgIC KmFHObVTRlSSIiLIHqNBNzEXKwHGLeNZOiUJRcIF7XKOZaSPOlNAReLQEtYSPdGLKbVLCeEUPaOTYgHK AgICAgICAgICAgICAgICAgICAgICAgICAgICAgICAgICAgICAgICAgICAgICAgICAgICAgICAgICAgIC SiNLDgXZZcGWPbWJ3TCGYdOQVxUYXwIYWaDWVtAZMp ICAgICAgICAgICAgICAgICAgICAgICAgICAgICAgICAgICAgICAgICAgICAgICAgICAgICAgICAgICAg APKzIAMwNQTpZKScPOXpFGCfSKYyBM9OTXLgQTSeIFKpDHOlEFWnEVIfHFBcZHLdPRPvGECtDUHhKUYc ICAgICAgICAgICAgICAgICAgICAgICAgICAgICAgIC ZwUXNkSQBxKDCeSURtYKWcZZIrUQSoIROwMXVyIBPzBR8BTGWtENTaDVJiRPWaTCEiWPDoJKHvIVClDP AgICAgICAgICAgICAgICAgICAgICAgICAgICAgICAgICAgICAgICAgICAgICAgICAgICAgICAgICAgIC HoZWMjRMYpEKXwKNPxRO3PXG06eWLtm9P0HNOgQN4s dyc/Ce6GDIekogBgoAZeIP7WYbHbTL0pga9QZiBzYQ8iav9OUJyBShNpR6J4hRIcLBRyJCFAArQaF70s YVwtRr76YNlrISVmItJuKNv1Ov2BWzHrL8gbLLJhHyI1MCLiFxY6WQDfWeP3JBYxCwQnBPQzQJMdJEZo CFSFXG4QUcHiX1RwuB34PTOACh5+DQplbmRvYmoNCj I7XABhu6EcICn3UT4NVBWeOxrrb5AuQuggVQGSKQucWD5XOLN7UJE4ECHoKc2JWNDtV905acArIY1ZPt 7HYtVzYB4yil0ALvjbVBVhVxxWRrj5HLdmUG5ZvYFaXWeHYzViXgoqLMRtwTMVCPTiXQWngTzkROKvKI InDB6dZR2zTNMnGTSvBpI6PXWPLS0UEEReGEKjpJXh LYVmGILATT7TLZtdAXK5XQUrnjVvmBCjJIcvKN7NCOJdymZsZpWmCUGSDUh+Rt5LVF6ly3OlGUwkNQLd QI5wsi7DGGcQDgIrT1L7yECmA0M6KAhiXs1XBHXvZBZfRaYnPHVZOTdiWQ3GFP8uipR2OD8OvEWnMBYm HOCeoKAbWBl3X75rlWLuCJijIF5ZDHH+Dillon+Pg0KIC AgFEAvUIWrWjWuLACOHvPhV1BuY5GUk8JwL6ElYK85rGuhfzSuIXtvGD6TCD0wIJUjJMKEXO6JaLVhaI 7dvgEsWjCpSFIIKzSlX17xxRMbINYhABP0IGOnMc5PTPEnA7LbddWaiHgdkrAxLPWdXXQADV3ANXnwpe MyfQUlhZnpVE70rIwaCT0KCl8NCfYbTR5ppg0FtNJc Ol4PAVYkRZ2QFGVxSBMfZXYiPFV7RGKvDxEqDHgxSMHwUXHgFIY5MXLrSMNcTK9OUqInRAKiSjMsYEio MLZkLJSgwn9LJCQnPPEpKxZ3QYDcJLSwSXUyCRqgUHPiEHLdAVD8XZQaHKMtNN0DQwZsAVRxOAHtPTox HQAoUSJswc4FYRSuDFKxKfQyFTGdQZHnTHDhTGqeFQ RqWGJ6NVo6HGTyPHHyAF9RMiUuDFYnGGD0DZFxXZRyEXDihw6ZFPSnBUBxUNEsADInHDUcGAUfFPqlIC EqMAD8FbV9COHjBJZaYL1KCiMzBOCmRQR6HGGxMIIcHQZocy6IIXRlIYAtKdrfTORuRMSgFEFrPXazCD AjJEC6XDH4KOGvZGAiFV8ALnHnQHYmQMGbYFJwQASb NZIpbl6VNWDjZWSuSaRrLGFzTUBjYQBnDRtgUHFfEIN1CXg8MMMwKVMxOW9DXvGmQVRhDXU9QRNyGVSh WNInfp6KUKTxQUAzXqVhEGQgAOIwSMVpLSdmMCNnSWC3QALqPHPhUNGiLV1XOuYcXWLsJBufLyxaSLBg QGElxb5AJKHgDAYaDGj8BSQvPNDxQVQpNGtdRTRuRV J5MVz5GFVjVPFqEN1ETeCdEBAeLQofBxklMIWjCGSqce9GVAWbOXZaCSf9UTEiOKUqYLGoGMqiPFJnRG NqFLtlCNYeXXOmNY1CEpTbZGCaEeBdZEAqNPPoUSJpyh3HVEYnYYJsXQOkFTKcEYHiGBMcOGiqVWFzSF MsMvO5OGCmDHCzMY0BPcRtSQUiWoP6NBZnCNUdTKUu ly7JNKNyYGCyNzt9LSFnMIKpKJMhXAlnVXGjPTTyWTi0UUZgQXFhSE5RYvQgRQQkYtF1YOeqQQRqLOKm zc9FOHQqELJrVYYbMwOqJQOjNHYgDKzwBCQiWHA8Lsy0YDFyLEIrXZ7LCqRmWWSpOtJ4GABwIAXkMXYx sd6MIJUqQGYvEqWlQPLlUSJdVAHaIOivJXBkMZI8Kd j8ORVnANBmTZ9HEkCmGGGvYgV7HBBwGOEaAICrsz4PmRUnePmxps3MGRxWNs6BoAxhBTW3WFdkAy5fdB VpACDgTLZBEa9VrvWfCKDgYWTVECbcFSYwLUyaCdakBQFfStJ7EYTgLHBhQVQ6YbY4AutsPAC3KKZuMf N1UJLsHgDwRBQ8OjH3GvC4JeZvCnIjBpY5FXCzCYDu NWE+TR7rUYi+Lv4Ne1MfgcC5boOsFLlqZnK5IR7NUXFDG3ZRFi== ID Date Data Source [id number] 03/21/2021 04:41:32 PM EDT [facility] Name Value Range Interpretation Code Description Data Stephanie rce(s) Supporting Document(s) History and Physical [facility] TXIBIo2zYxSQDkKc41/NEDcjBELhk8HoQDfeWIs0YMurYNOaJ9TsLTK1lL6qDFY9PAhQAmMxYxIjYZYe lbm [file] thu5ZT/G28GexxoeVSF33SKjZ/ODV+powder hand+jPN8zaRXQ [file] JfRCY4DTjtNPRaE3G0M2A1LI9wFZJWBp4+RTjtdZGfqEjsFFRTFrK6IJW0RMxeKPAOJv5C ID Date Data Source [id number] 03/20/2021 08:10:00 PM EDT [facility] Name Value Range Interpretation Code Description Data Stephanie rce(s) Supporting Document(s) SARS coronavirus 2 RNA [Presence] in Res piratory specimen by [facility] with probe detection NEGATIVE [facility] This lab was ordered by [facility] a nd reported by [facility]. ID Date Data Source [id number] 03/19/2021 10:46:48 AM EDT [facility] Name Value Range Interpretation Code Description Data Stephanie rce(s) Supporting Document(s) Consults [facility] XMSNWk2iVjDGYwHq04/LSLskRAVsd6XtJOzuLNe4LUclGOZcK2FjIKG3jJ2cTMY3JDuIBeDgVsJqNQT6 lbm [file] ICAgICAgICAgICAgICAgICAgICAgICAgICAgICAgIC AgICAgICAgICAgICAgICAgICAgICAgICAgICAgICAgICAgICAgICAgICAgICAgICAgICAgDQogICAgIC AgICAgICAgICAgICAgICAgICAgICAgICAgICAgICAgICAgICAgICAgICAgICAgICAgICAgICAgICAgIC AgICAgICAgICAgICAgICAgICAgICAgICAgICAgICAg ICAgDQogICAgICAgICAgICAgICAgICAgICAgICAgICAgICAgICAgICAgICAgICAgICAgICAgICAgICAg ICAgICAgICAgICAgICAgICAgICAgICAgICAgICAgICAgICAgICAgICAgICAgDQogICAgICAgICAgICAg ICAgICAgICAgICAgICAgICAgICAgICAgICAgICAgIC AgICAgICAgICAgICAgICAgICAgICAgICAgICAgICAgICAgICAgICAgICAgICAgICAgICAgICAgDQogIC AgICAgICAgICAgICAgICAgICAgICAgICAgICAgICAgICAgICAgICAgICAgICAgICAgICAgICAgICAgIC AgICAgICAgICAgICAgICAgICAgICAgICAgICAgICAg ICAgICAgDQogICAgICAgICAgICAgICAgICAgICAgICAgICAgICAgICAgICAgICAgICAgICAgICAgICAg ICAgICAgICAgICAgICAgICAgICAgICAgICAgICAgICAgICAgICAgICAgICAgICAgDQogICAgICAgICAg ICAgICAgICAgICAgICAgICAgICAgICAgICAgICAgIC AgICAgICAgICAgICAgICAgICAgICAgICAgICAgICAgICAgICAgICAgICAgICAgICAgICAgICAgICAgDQ ogICAgICAgICAgICAgICAgICAgICAgICAgICAgICAgICAgICAgICAgICAgICAgICAgICAgICAgICAgIC AgICAgICAgICAgICAgICAgICAgICAgICAgICAgICAg ICAgICAgICAgDQogICAgICAgICAgICAgICAgICAgICAgICAgICAgICAgICAgICAgICAgICAgICAgICAg ICAgICAgICAgICAgICAgICAgICAgICAgICAgICAgICAgICAgICAgICAgICAgICAgICAgDQogICAgICAg ICAgICAgICAgICAgICAgICAgICAgICAgICAgICAgIC AgICAgICAgICAgICAgICAgICAgICAgICAgICAgICAgICAgICAgICAgICAgICAgICAgICAgICAgICAgIC BjSLk2Y9uzKCIsVKAlMZ1lGRt1Ih4+AEjPDoEaFSN1vrKkuE6IJX3wc1SfVChgWBIev4AhWFd6DW4WYE UlJAdtUM1ULRlwkv1JQDAuFBZuiHFZh9elTjNhSNS9 ODQiWroqES5ZTQOeL7wbzkKsWZQyRGMFVU8KYrPwX5WbkW54EZTXZp2+UIygmhXwFptPJiN3XQHbh4Qb APh5PC8OCAJsRuwov6UfEAnfACATVZdaVO3TPDK0TQB0WFAcOa4IZGGxX868mhClRT9PCz2ADtHkEJ8u ux3UNSusEKJkWayIYpe6YGjlIM3YvLEeEJeHm23kdJ m7wvIyrVWHEVvwVPMBPVFdtE0Pb7FeJLWWTLPMYGR6CYuuRz1qGYUpYRRwIcYmHSQCFW1NBCClPNVqdP CeVDVpNILMDV0XRGmfNRI3TyvjrpGtjHGcBNfcXR2KGHTzahSgUNaiHTMUZMu+Lb7GAO7vx5NkXYtkJF WcWI7adx2XFLiCHePpF9K2cPAeY9B3XUjlDp5OUEGy EJJgEXMtAPPUSOrjMQ3LLX2cwaP3DI6MoRWcWFTtYUIebIBbUIe9V44btGRyWKdnTS6HOKZ+Dillon+Pg0K PVBzYCXbOQSxNfPtMCHTIsGsA4VgO6RFk2BlN4MaGN94mFhqnsKyMYvcTQ2GJU7vHJCwKUZKLL2NbZNk wC3wsvNrPkAhALISJxCxJ22mzBToWXQrEEP4SZJoDe 9GKGTrF2QlkyWugUouiyZsHEXwTICGDZ7ZUHjvknJdrSOvlXtkAI43iZwfUZ4TVl7CEvPySG2nsq4EfK DnRh5XPNBqIN4RCQXoVBBzFJUcZDX2IMZmGsVaTCvaTHRfYVElALL2MFYwHECiCU2HCfXmKSTnIPOhPQ PzIIDcJHDqyz8PTYIkSZOwQvdvElIcZRDqDNMtCLil HSMjTYDkZXS3LXDnAEHjPS2DMxNpYXCjTJC6YQBxLIIoEWOwml9UJGBbDLZlUaM1SBHaHFTtQLKcTFle AWAbVMGsCBEuWIVqFFVlBY5AJqWdGFYsNEArEHVuKRHaVAWmdi0MAVBvSBRqGdY3XAXnBJInDQFyNSgs XQYsHVF0XqY1JGQeDYKmBO7MDiBrTRXzPAH0CUKjYQ AlKGWkng5OCZOiGMXhIJkmKgRaQZIiSVUoWPwyFQLfQDV4Tlo3DSCcEWKlAG4DPyQpJLBlIWI4HLWaVR AtSSAbjp4EULZbKZXqTdZ3JQXlMGRpSEAyUIflTEEcCAF9DPxcNSLwPCEcGG1OSvFnQDBuPIf2XaBmGO QbDUDtny7BDJMaDRIcTRUwOBDjWQZiFVJxDKxtHYOt DJJ3FNE1UUXxFWAgFQ1LGiIhYDsaOSHSIpc2BTmqV6y6JQSiZA3VP7Aqz6FqKKsfPCJHZPocKB0ellIr JGLbEs4QJ0mBObl8UcAwJhK5SLr9MNWdKQawRte4MqU5FLAqFGE5YDNdCI5iBZByUhPnDcj9CVj9SXJ5 A1WgJYf1FJSvQdHjCrX0INIjTmJmDB6JQl9XRvF5JJE5zEWqZf4VUND1LT8TZLZSW9HRXx== ID Date Data Source [id number] 03/16/2021 05:01:00 PM EDT [facility] Exam Number: [id number] OF EXAMINATIO N: 03/16/2021 15:29 EDTHISTORY: InjuryTECHNIQUE: Fall views of the left tib-fib were obtained.FINDINGS:There is no acute fracture or dislocation. The joint spaces are normalin appearance.IMPRESSION:There is no acute fracture or dislocation.Electronically signed in PS360 by: Cj Quiroga M.D. 03/16/2021 16:49EDT Reported By: Maria De Jesus QUIROGA M.D. Signed By: Noel QUIROGA M.D. Name Value Range Interpretation Code Description Data Stephanie rce(s) Supporting Document(s) ID Date Data Source [id number] 03/16/2021 07:16:00 AM EDT [facility] Name Value Range Interpretation Code Description Data Stephanie rce(s) Supporting Document(s) LCOVID-19, [facility]LL NEGATIVE [facility] was ordered by [facility] and reported by [facility]. ID Date Data Source [id number] 03/16/2021 08:04:00 AM EDT [facility] Name Value Range Interpretation Code Description Data Stephanie rce(s) Supporting Document(s) COVID-19, CORDELL NEGATIVE NEGATIVE N [facility] Methodology: Isothermal Nucleic Acid Amp lification for thetargeted qualitative detection of SARS-CoV-2 viral nucleicacids. Negative results should be treated as presumptive and, ifinconsistent with clinical signs and symptoms or necessaryfor patient management, should be tested with differentauthorized or cleared molecular tests. Negative results donot preclude SARS-CoV-2 infection and should not be used asthe sole basis for patient management decisions. Negativeresults should be considered in the context of a patient'srecent exposures history and the presence of clinical signsand symptoms consistent with COVID-19.The ID NOW COVID-19 test is only for use under the Food andDrug Administration's Emergency Use Authorization. ID Date Data Source [id number] 03/16/2021 07:54:00 AM EDT [facility] [place] Name Value Range Interpretation Code Description Data Stephanie rce(s) Supporting Document(s) ETOH NONE DETECTED [facility] NONE DETECTED ID Date Data Source [id number] 03/16/2021 07:54:00 AM EDT [facility] Name Value Range Interpretation Code Description Data [facility] rce(s) Supporting Document(s) GLU 98 mg/dL 70-110 [facility] Patients taking Sulfasalazine may have f alsely depressedGlucose levels. Patients taking Sulfapyridine may havefalsely elevated Glucose levels. Patients should be drawnfor Glucose before the initial administration of eitherdrug. BUN 15 mg/dL 7-23 [facility] CRE 0.644 mg/dL 0.500-1.300 [facility] GFR > 60 mL/min [facility] CHLORIDE 109 mmol/L 99-110 [facility] NA 137 mmol/L 136-147 [facility] POTASSIUM 3.7 mmol/L 3.5-5.1 [facility] TCO2 23 mmol/L 20-33 [facility] ANION GAP 8.7 10.0-20.0 L [facility] CA 8.5 mg/dL 8.3-10.7 [facility] ALKALINE PHOS 120 U/L 45-117 H [facility] TP 7.2 g/dL 6.0-7.8 [facility] ALB 3.6 g/dL 3.5-5.0 [facility] ESRD Dialysis patient Albumin reference range: 2.9-4.4 g/dL GL 3.6 g/dL 2.3-3.5 H [facility] A/G 1.0 1.0-2.5 [facility] T. BILIRUBIN 0.3 mg/dL 0.1-1.1 [facility] [place] Total Bilirubin is n ot recommended forpatients undergoing treatment with eltrombopag (Promacta)due to the potential for falsely elevated results. ALTI 51 U/L 6-54 [facility] Patients taking Sulfasalazine and/or Sul fapyridine may havefalsely depressed ALT levels. Patients should be drawn forALT before the initial administration of either drug. AST 27 U/L 6-38 [facility] Patients taking Sulfasalazine and/or Sul fapyridine may havefalsely depressed AST levels. Patients should be drawn forAST before the initial administration of either drug. ID Date Data Source [id number] 03/16/2021 07:30:00 AM EDT [facility] [place] Name Value Range Interpretation Code Description Data Stephanie rce(s) Supporting Document(s) WBC 9.75 x10E3/uL 4.0-10.5 [facility] RBC 4.13 x10E6/uL 4.20-5.40 [facility] Hemoglobin 12.2 g/dL 12.0-16.0 [facility] Hematocrit 36.4 % 37.0-47.0 [facility] MCV 88.1 fL 81.0-99.0 [facility] MCH 29.5 pg 27.0-31.0 [facility] MCHC 33.5 g/dL 32.7-35.6 [facility] RDW 12.1 % 11.5-14.0 [facility] Platelet count 263 x10E3/uL 150-450 [facility] ital MPV 9.9 fl 6.9-9.5 [facility] Neutrophils 70.3 % 34-64 H [facility] Lymphocytes 23.7 % 25-45 [facility] Monocytes 5.2 % 1.7-10.6 [facility] Eosinophils 0.3 % 0.4-7.0 [facility] Basophils 0.2 % 0.1-2.0 [facility] Imm. Gran. 0.3 % 0.1-2.0 [facility] Abs. Neutro. 6.85 x10E3/uL 1.2-7.6 [facility] Abs. Lymph. 2.31 x10E3/uL 1.0-3.5 [facility] Abs. [place]. 0.51 x10E3/uL 0.1-1.0 [facility] Abs. Eosin. 0.03 x10E3/uL 0.1-0.7 [facility] Abs. Baso. 0.02 x10E3/uL 0.0-0.1 [facility] Abs. Imm. Gran. 0.03 x10E3/uL 0.0-0.1 [facility] ANRBC% 0 % 0 [facility] ID Date Data Source [id number] 03/16/2021 07:54:00 AM EDT [facility] Name Value Range Interpretation Code Description Data Stephanie rce(s) Supporting Document(s) ACETAMINOPHEN < 2.0 ug/mL 0-30 [facility] ID Date Data Source [id number] 03/18/2021 09:43:00 AM EDT [facility] MIXED VIC GROWN NO PATHOGENS ISOLATED Name Value Range Interpretation Code Description Data Stephanie rce(s) Supporting Document(s) ID Date Data Source [id number] 03/16/2021 06:30:00 AM EDT [facility] Name Value Range Interpretation Code Description Data Stephanie rce(s) Supporting Document(s) PCP VISTA NEG NEGATIVE [facility] MINIMUM LEVEL OF DETECTION IS 25 ng/ml BENZODIAZEPINES NEG NEGATIVE [facility] MINIMUM LEVEL OF DETECTION IS 200 ng/ml COCAINE VISTA NEG NEGATIVE [facility] MINIMUM LEVEL OF DETECTION IS 300 ng/ml AMPHETAMINES NEG NEGATIVE [facility] MINIMUM LEVEL OF DETECTION IS 1000 ng/ml BARBITURATES NEG NEGATIVE [facility] CUTOFF CONCENTRATION IS 200 ng/ml CANNABINOIDS NEG NEGATIVE [facility] CUTOFF CONCENTRATION IS 50 ng/ml METHADONE VISTA NEG NEGATIVE [facility] MINIMUM LEVEL OF DETECTION IS 300 ng/ml OPIATE VISTA NEG NEGATIVE [facility] MINIMUM DETECTION LEVEL IS 300 ng/ml ID Date Data Source [id number] 03/16/2021 06:11:00 AM EDT [facility] [place] Name Value Range Interpretation Code Description Data Stephanie rce(s) Supporting Document(s) HCG QUAL URINE Negative Negative [facility] l ID Date Data Source [id number] 03/16/2021 06:11:00 AM EDT [facility] Name Value Range Interpretation Code Description Data Stephanie rce(s) Supporting Document(s) URINE COLOR Yellow [facility] UAPR Cloudy [facility] UGLU Negative NEGATIVE [facility] URINE BILIRUBIN Negative [facility]GATIVE [facility] UKET Negative NEGATIVE [facility] USG 1.028 1.010-1.025 [facility] UBLO Negative NEGATIVE [facility] UpH 5.0 5.0-8.0 [facility] UPRO 1+ Negative [facility] UUB 1.0 mg/dL 0.2-1.0 [facility] UNIT Negative Negative [facility] ULEU Negative Negative [facility] ID Date Data Source [id number] 03/16/2021 06:11:00 AM EDT [facility] Name Value Range Interpretation Code Description Data Stephanie rce(s) Supporting Document(s) URINE RBC 3-5 RBCs/HPF NONE SEEN [facility] URINE WBC 3-5 WBCs/HPF NONE SEEN [facility] URINE BACTERIA Moderate NONE SEEN [facility] l A URINE CULTURE HAS BEEN ADDED TO THIS S [facility] EPI. Moderate NONE SEEN [facility] UMUCUS Moderate NONE SEEN [facility] URINE CRYSTAL MOD. CALCIUM OXALATE NONE SEEN [facility] ID Date Data Source [id number] 03/16/2021 07:30:00 PM EDT [facility] Physician DocumentationClaxton-Naveen M edical CenterName: Yareli DuvallAge: 20 yrsSex: FemaleDOB: 2000MRN: [id number] Date: 03/16/2021Time: 05:07Account#: [id number] [id number] MD: NONE, - Per PatientED Physician Juan Bowmanposition Summary:03/16/21 17:35Transfer OrderedTransfer Location: Other Acute Care FacilityafReason: CapacityafCondition: StableafProblem: an ongoing problemafSymptoms: are unchangedafAccepting Physician: DR. SOFIA(03/16/21 19:30)cu6Wlmkihkqz- Major depressive disorder, recurrent, unspecifiedafForms:- Medication Reconciliationaf- Medication Reconciliation Form - 2nd CopyafHPI:03/506:55 This 20 yrs old White Female presents to ER via Police with complaints ofPsych Problem.dk206:55 Patient presents here stating she is upset because she got a call fromher boyfriend he vk1anho that he was dying and then that he was puking up blood. This apparentlywas a callfrom [employer]. No other history provided. Patient denies any acute pain orconstitutional sick symptoms. Patient denies active suicidal or homicidalideation.Patient denies currently hearing voices..Historical:- Allergies: Haldol; Risperdal;- Home Meds:1. prazosin 2 mg oral capsule every day at bedtime2. Lexapro 10 mg Oral tablet nightly3. Zyprexa 5 mg Oral tablet 1 tab nightly- PMHx: ADHD; ANXIETY; BIPOLAR DISORDER; Depressive disorder; ptsd;- PSHx: None;- Immunization history: Flu vaccine is not up to date.- Social history: Smoking status: Patient uses tobacco products, current everydaysmoker. Patient/guardian denies using street drugs, IV drugs, ETOH statusDenies useof ETOH.- Advance Directives:: None.ROS:06:52 Constitutional: Negative for fatigue, fever. Eyes: Negative forphotophobia, vision sd6edzl. ENT: Negative for difficulty swallowing, difficulty handling secretions.Neck:Negative for stiffn ess, bony tenderness. Cardiovascular: Negative for chestpain,palpitations. Respiratory: Negative for cough, shortness of breath. Abdomen/GI:Negative for vomiting, diarrhea. Back: Negative for decreased range of motion,acutechanges. MS/extremity: Negative for decreased range of motion, tenderness.Skin:Negative for hematoma, jaundice. Neuro: Negative for headache, loss ofconsciousness,seizure activity, syncope. Psych: Positive for anxiety, Negative for auditoryhallucinations, visual hallucinations.Exam:06:53 Constitutional: The patient appears in no acute distress, alert, awake,comfortable, dk2non- diaphoretic, non-toxic, well developed, agitated, anxious.06:53 Head/face: Exam is negative for contusion, deformity.06:53 Eyes: Exam is negative for hyphema, abnormalities of symmetry, size,shape and reactionof the pupils.06:53 ENT: Exam is negative for epistaxis, abnormal voice.06:53 Neck: Exam negative for meningismus, nuchal rigidity.06:53 Chest/axilla: Exam negative for crepitus, flail chest.06:53 Cardiovascular: Exam negative for JVD, tachycardia.06:53 Respiratory: Exam negative for respiratory distress, stridor, tachypnea.06:53 Abdomen/GI: Exam negative for distension, guarding.06:53 Back: Exam negative for CVA tenderness, vertebral tenderness.06:53 Musculoskeletal/extremity: Exam is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 ICAgICAgICAgICAgICAgICAgICAgICAgICAgICAgICAgICAgICAgICAgICAgICAgICAgICAgICAgICAg ICAgICAgICAgICAgICAgDQogICAgICAgICAgICAgICAgICAgICAgICAgICAgICAgICAgICAgICAgICAg ICAgICAgICAgICAgICAgICAgICAgICAgICAgICAgIC AgICAgICAgICAgICAgICAgICAgICAgICAgDQogICAgICAgICAgICAgICAgICAgICAgICAgICAgICAgIC AgICAgICAgICAgICAgICAgICAgICAgICAgICAgICAgICAgICAgICAgICAgICAgICAgICAgICAgICAgIC AgICAgICAgDQogICAgICAgICAgICAgICAgICAgICAg ICAgICAgICAgICAgICAgICAgICAgICAgICAgICAgICAgICAgICAgICAgICAgICAgICAgICAgICAgICAg ICAgICAgICAgICAgICAgICAgDQogICAgICAgICAgICAgICAgICAgICAgICAgICAgICAgICAgICAgICAg ICAgICAgICAgICAgICAgICAgICAgICAgICAgICAgIC AgICAgICAgICAgICAgICAgICAgICAgICAgICAgDQogICAgICAgICAgICAgICAgICAgICAgICAgICAgIC AgICAgICAgICAgICAgICAgICAgICAgICAgICAgICAgICAgICAgICAgICAgICAgICAgICAgICAgICAgIC AgICAgICAgICAgDQogICAgICAgICAgICAgICAgICAg ICAgICAgICAgICAgICAgICAgICAgICAgICAgICAgICAgICAgICAgICAgICAgICAgICAgICAgICAgICAg ICAgICAgICAgICAgICAgICAgICAgDQogICAgICAgICAgICAgICAgICAgICAgICAgICAgICAgICAgICAg ICAgICAgICAgICAgICAgICAgICAgICAgICAgICAgIC KsVHIgNWWaTVXoVPMaBYRhFHTaUVCwPCZoSCAcGORuKPa0R4tlHKFsHTVyZG4rJLw0Zi5+DQoNCmVuZH X1npQvsN9RGA4op9SaZBmoBTXao2FyQBh1JH1CBOTyMObnEI6FIOqajl8TGTImNDHysLPAu5llCwCuXH L2BBZyQlqyZZ4LJPTpQ7ayghPhCMSxCZBSYJ9TIyPu Q3JksV88YIRCSy2+DLgrkvJrMwzVHvV1KJVzp6VcXUb7EG9LRJVfZilbm5XoNZrxGQJWSDzyMV9ZWUX3 UZB5JVOwAr4HMDIjD954giFdVN5VLj7YVnHsPD7zsh8WAUduUMZrKizHNuw7FUuaLL7OhMCcPCwXw75j oQf0ifCyvEIBLRRvUO4sJ33hEUgfWU9NCII5RFtcVD 9fSLTyLGJuLpUqVJPZBQ3ZXQCjZUWpgZBzLGFvRLRMZP1WPIrdKMR7WtazasQitVFbKXsxIR9NXXHrxg QgMTcgMCBSDQo+Kp3XXN2yi1QlZUgvLTOeMU7cdm9LEEnCFcSrR9V9bZVuL5X3NTnkJl9SDYZiPAOzLG FsKVRHYNftPQ5CDO3zzbN5OY0VxHAcVGJwRLOpsWHq NHk1N61wwOPcIQvwNA5DVFV+Dillon+It2UEMZkBGRmQXXiBeYlGPISYcTmB9TaJ9DXn8RpH0BoGQ82pMrc kkMiHLhpMO3JVL3dNCQfVUNIPI7RkOThpF6hcyQhBgIxRKLFHmLgD03ekEIuCYJxYPE9ZNAzBj3WPXFw E3MmhyXdrHckxpJdATZwGXODHM3CSAtoyfAjyJLodZ doGQ39zYedRO6TBw6EUdXzIS6dyn8BcTFiRv4XYOXeSF5RZRVvSCWkAKDlMJD1MTBcTpJiOKunAFIfUJ TgVQY4OOXmVLReEE7WLzUwWMVtKPO5EUpwOPAbCQMcxr0HXXWnQEEjNcZ3IzPlMRXaBNNyLIsgYVCiJA UlTBX0TZRkTELhZC5YHeWrXXBbHQZxMDCnAQTnTVBe ec8ALVJfLOVaUSIjUQLmDEXxTYAjGFbgGKHsGMPfHgS2TDZpRCHqOK0VLdJjHAWePRP4PvcdHNJvBPFd sl0LTSYbPUTwWsh8HqWrZOQrHXJgLIthWDBrOHRhHiRaGWTyIMOcFA4EXiWdFCUfQJP7KLocMPAyMUEk oh5KDFUeNXTgAHO4XBEiBYHlJQIcZIhbYEAvMXW4VK Z9TVAiMIOtOI1HMzReWGQxZZMdYTnuTGPqGBPyfb6KVEPmRFBtBNHyZWJxCXZrQERqSJwxEVWkRZO0YL Y3HOUpFBCfLF4LNyTzZPSsWUicYCRaDIGiJDYbrr6BALOiDFMnSiW5WKVfUPXpIZXnBIqzBOJnDOW8FQ L9FYMaNQHhCI2WQfYqZVzwQRRSUbi4ZVnsV4x5VIJs IG0NN4Oie3XpRJigUQQCQOtmGR9qalTqQBWvJb1VS4aQWhx5LHPkYMMyGTT3XhfuMASaFhQzRomoNOEx DJM3J9XwZD6oLCD5W8W5HOOvVbjpU3L3VcMuU2UyGASkHIG1QYk6KUFkLnHnHS7QNm5DPwG7QHH7hORw Xz4MYjk7SC8GQSJCY6SMZx== ID Date Data Source [id number] 03/15/2021 10:14:33 AM EDT [facility] Name Value Range Interpretation Code Description Data Stephanie rce(s) Supporting Document(s) Care Plan [facility] PCRFMd2mWbNHGzGg95/PZMunRCVzp0AeSItyRBj2OBfbJKUcC3OvYGL3pZ1bNKS0XYlDEcJoNhZmFTK5 lbm RhYwwLZmJrPCUsXreHYkHxHOowLvsbwUYtWU2OfNQ9GBUgM96sXIKiKNTyI3RoOSFnNGj+Mf9GVKYhrL BqAC5WIfaZ8Ftnvrv7VF3nJC3Xc28vVdjZTIBNtVpLVsTyvsVsqV8enu9GDcGl8qNMlvq67BTJSmSc4U PLE0xsWZfOPYNwFtto2lhUPKZah5/HGPaHNHO0c/s1 tJS2nXeywvA3xyq6bUf3gE3EHcEhgoN+QvrVU1+/rKu3sE0Vr9UdSlOYq9RXhaWamYoDhKpfXkswjac+ jTL5lz0uZOTsvsSyYQhANdN6PFNk37jqkuHP+HyP8nLXO44J18LNnf+XtHo0oHSeqLiCWSBepbA6Z5wx gclbv+rznqo8Y6GSMVpJv3vEEUHYU0/wcyotiz1Tx5 [file] ICAgICAgICAgICAgICAgICAgICAgICAgICAgICAgIC AgICAgICAgICAgICAgICAgICAgICAgICAgICAgICAgICAgICAgICAgICAgICAgICAgDQogICAgICAgIC AgICAgICAgICAgICAgICAgICAgICAgICAgICAgICAgICAgICAgICAgICAgICAgICAgICAgICAgICAgIC AgICAgICAgICAgICAgICAgICAgICAgICAgICAgICAg DQogICAgICAgICAgICAgICAgICAgICAgICAgICAgICAgICAgICAgICAgICAgICAgICAgICAgICAgICAg ICAgICAgICAgICAgICAgICAgICAgICAgICAgICAgICAgICAgICAgICAgDQogICAgICAgICAgICAgICAg ICAgICAgICAgICAgICAgICAgICAgICAgICAgICAgIC AgICAgICAgICAgICAgICAgICAgICAgICAgICAgICAgICAgICAgICAgICAgICAgICAgICAgDQogICAgIC AgICAgICAgICAgICAgICAgICAgICAgICAgICAgICAgICAgICAgICAgICAgICAgICAgICAgICAgICAgIC AgICAgICAgICAgICAgICAgICAgICAgICAgICAgICAg ICAgDQogICAgICAgICAgICAgICAgICAgICAgICAgICAgICAgICAgICAgICAgICAgICAgICAgICAgICAg ICAgICAgICAgICAgICAgICAgICAgICAgICAgICAgICAgICAgICAgICAgICAgDQogICAgICAgICAgICAg ICAgICAgICAgICAgICAgICAgICAgICAgICAgICAgIC AgICAgICAgICAgICAgICAgICAgICAgICAgICAgICAgICAgICAgICAgICAgICAgICAgICAgICAgDQogIC AgICAgICAgICAgICAgICAgICAgICAgICAgICAgICAgICAgICAgICAgICAgICAgICAgICAgICAgICAgIC AgICAgICAgICAgICAgICAgICAgICAgICAgICAgICAg ICAgICAgDQogICAgICAgICAgICAgICAgICAgICAgICAgICAgICAgICAgICAgICAgICAgICAgICAgICAg ICAgICAgICAgICAgICAgICAgICAgICAgICAgICAgICAgICAgICAgICAgICAgICAgDQogICAgICAgICAg ICAgICAgICAgICAgICAgICAgICAgICAgICAgICAgIC AgICAgICAgICAgICAgICAgICAgICAgICAgICAgICAgICAgICAgICAgICAgICAgICAgICAgICAgICAgDQ w7R1qpJZOsQFAwPN7aSNd0Xq8+PLnPHnNmGNV0jhPdkJ5CVO0ij3UuYQgmDRKow4CsQEk1FQ3GPIZmLV nmMD9TMCrwkw3XQRGtNKHooBWJd5kiZfWrZWX2FLPl TktvJV6TIPRnR6jsylXaRHUfLSKLWC0LEtBmM7UpkX31QQMTVc6+QJktwwRyJakNCsB3RZArx1NqWYl2 MQ3IAMSsIckac0TlGdAvWUWLIZrkTJ1IDCV3HML4HDDlEl9XLGRyS416pcJbJD2EQm7SQnEwTR4msj8J IwCmPOTmUulGMtz4RRefCZ4MmVVbATnAFMEpBXQrNR 5rGwfzWTSxbVSeDRSVa5T0NNQhXJCEJZO1ZSotJM6zARCrBGIwBaO3CXXEFH5ZARVbBYYsxDVeKODhBS DICC0LYViyWCQ5PaghhwUpqHClWOheUE0AWZOrudVrJwIoAUIXJXk+Pi4UKP6ef2VtLHgsCoZaEV8dcp 8CGNjOXuLsP8T3vOQbW9N3XTvqLu7IXNSuYXPoZtYh QOLFVFksUL0GWC8tawL7CO1ZpEStTJUdDQJvvPKaKWp4M33pbPHoNGlvUZ6LGQS+Dillon+Bp7NKSLuJTTq WJPiGeDfHCZKJaTzT9AcU1FFz3EvM3KlKX84iHlsawPuMUytWO9PID0lDPQqMMVLBT9KsVTeeU4dblCb KMLxWLYWVmBfX11pxHNzDPWjBSD8PYCyBr9RTGUuF0 ImppMnmOziykIyCWSrKBUAHN0LAOpcscTxtNKinRgtQR41aWrtZG6NAk1DUgLuIR3uuh2ZzGKbWo7ZRS WbMY1EXVTiCIBkHBEfJVN3VYUgTjGpKMnzPDEbEMXvTUS2GITiGJJxQV2WSfScEARwBiSjWypnSRSvCB Onkr5KLAErPPBaIgc7BPOgXPByRUSkSZihFFNjQIFd XRP8QRKrKVUcWT4TVjEaPULcIGD4QtLfLOTgFAFwja8JCQNrFFHzZxLwZVBzCKFjGZAgQFgnNYZjIMVk JNq8ZKEzNXZdTG0DIlRtXSYbSDK7VQizPVNpYLIobc0BMYJaEWDaUws6BpRiWWTfWROkYHftOPOlAVX8 AJDgCMYaRCUjJK1AJmObDFOfFRPrNurmYQGbDAEvib 7UXONoGUNnSWCqJUOnVHLqESBwRNawETScXYE9VvceWFPsGJZiRK1KZmNbZZCtKIh1LBOvIIWbHIMjom 1IBTCyXNDwIYC6CGJmURGrZUTtWAjsIWExNTM0GJX1HCBpXPWjQS1PTiJhKXUzFNc2ZJXiIKYlEJMirv 8GBEEpUIJiBGShMxMbMSXuUUPsIQejIYLrYCE3RdZe GFEtMMXfZU0PLhPtYQMhPIk0XCzfRISvEZBfoe4UNXImZROnHCb2QEUgHAJaQEIjXSmnZJHcIDAaUNI1 UXJzQBHgVR9KBfAdQCUgXxZfQPgoLHYgTWDjiz8KAJZaODXqUBUdAEYzCPFpKQQnUEqpXVPrSEYvNAe4 UUJaFLNgFJ2IBgPaTJXsUzZcASehRITvEYXygs8LYG WzZZFzMdN0PNYoOBXaPHNdQEy9pgEvaNUdHAn1XU0BL4NtiaOsAurGNq9Yq790POM4KJFhPq7ZB4cfSk 7eHXOoYIHJDq6RHZo5RBB7AGGoQSlzQGE1ZUg2HYGeAuKcGEJsQyk0BBTlWbC+JArwCQY0YhM8GUMsDV AxTcfrX5C2LUOhJ3Y0XMF9LDClEN2cFRSTCn8+MTmrfBXmwTchZYLILoLoFZO3HSwwGVDOBb1Z ID Date Data Source [id number] 03/15/2021 05:49:27 AM EDT [facility] Name Value Range Interpretation Code Description Data Stephanie rce(s) Supporting Document(s) Nursing Note [facility] VQRZCx9lSyMZUgLa87/VBIfzNTBev3YrBOuhLSh3OUtnDGMxW9PgLFV0hF4xSKF4WMkMSbFyVyEbTAQ3 lbm [file] UAU6ATG3LlDjFZ9ZVt5XAfG6GEI8mXCwHe3GYeO4ZdAEZzOjAD9UPHh= ID Date Data Source [id number] 03/15/2021 12:37:56 AM EDT [facility] Name Value Range Interpretation Code Description Data Stephanie rce(s) Supporting Document(s) Nursing Note [facility] LDPBXy8lRiRDFkKl56/NIWkoLOWif1BhHOhlTAr6DZkuTCUmG0RzLLB2sG0cZHT0TPfZVjVsDfUkFUZ4 lbm [file] ICAgICAgICAgICAgICAgICAgICAgICAgICAgICAgIC AgICAgICAgICAgICAgICAgICAgICAgICAgICAgICAgICAgICAgICAgICAgICAgICANCiAgICAgICAgIC AgICAgICAgICAgICAgICAgICAgICAgICAgICAgICAgICAgICAgICAgICAgICAgICAgICAgICAgICAgIC AgICAgICAgICAgICAgICAgICAgICAgICAgICAgICAN CiAgICAgICAgICAgICAgICAgICAgICAgICAgICAgICAgICAgICAgICAgICAgICAgICAgICAgICAgICAg ICAgICAgICAgICAgICAgICAgICAgICAgICAgICAgICAgICAgICAgICANCiAgICAgICAgICAgICAgICAg ICAgICAgICAgICAgICAgICAgICAgICAgICAgICAgIC AgICAgICAgICAgICAgICAgICAgICAgICAgICAgICAgICAgICAgICAgICAgICAgICAgICANCiAgICAgIC AgICAgICAgICAgICAgICAgICAgICAgICAgICAgICAgICAgICAgICAgICAgICAgICAgICAgICAgICAgIC AgICAgICAgICAgICAgICAgICAgICAgICAgICAgICAg ICANCiAgICAgICAgICAgICAgICAgICAgICAgICAgICAgICAgICAgICAgICAgICAgICAgICAgICAgICAg ICAgICAgICAgICAgICAgICAgICAgICAgICAgICAgICAgICAgICAgICAgICANCiAgICAgICAgICAgICAg ICAgICAgICAgICAgICAgICAgICAgICAgICAgICAgIC AgICAgICAgICAgICAgICAgICAgICAgICAgICAgICAgICAgICAgICAgICAgICAgICAgICAgICANCiAgIC AgICAgICAgICAgICAgICAgICAgICAgICAgICAgICAgICAgICAgICAgICAgICAgICAgICAgICAgICAgIC AgICAgICAgICAgICAgICAgICAgICAgICAgICAgICAg ICAgICANCiAgICAgICAgICAgICAgICAgICAgICAgICAgICAgICAgICAgICAgICAgICAgICAgICAgICAg ICAgICAgICAgICAgICAgICAgICAgICAgICAgICAgICAgICAgICAgICAgICAgICANCiAgICAgICAgICAg ICAgICAgICAgICAgICAgICAgICAgICAgICAgICAgIC AgICAgICAgICAgICAgICAgICAgICAgICAgICAgICAgICAgICAgICAgICAgICAgICAgICAgICAgICANCj w/tFCwT7wunYNzfzD2R1qbHl2EVw8XYN3qo1KuZMBkPTqujpAvUlmDPmEzQFGmKyqGVgq3REzrTV9IaD GcB1IbM0OwSUqvXN5QRTXvPMPedVMhVUSnAFMbWgS7 EEQfKWhiHK2SdELkOApvVNWfEZPyZZ3WMDNdE836kaBpWO6FLm3BUwGmTL2boq1HRuYvVBWmBatSMox3 SIqgWJ6UbTAadMNaBZHqGYIDElOgJ4tlw9NaCvPiTMZKXKjoKK6Jv1DpxTPuALy+Yh0JVL3qi1DeZHqz XIXbMH9thz9BNDpZXkSwG7VhjVhgCR28poPvwdryVs 56HZRtwZBUBMVazkVFFTMkq9EtWSDGZEH7CLsvRj7yGWYsSNZlEuRjMDRMJW9VLPFgGWHykULjDVGzNX VDVM5XSEjrRVK5AtwhulMvlYLcIKxoMX6DRABrwxNrVqRqHPMSSTc+Lg2MES9si8GmVFypFaSpQC6fxw 7NYTeLCuBzK8V5hHVmD5M4FGqaRm0NBLFkDZWhXdAm AUKNEPyoZS5IVW1ewgB3TJ3XjGKpEKNmOXEewJKeETt2A90paXCoURvvZJ0KDBM+Dillon+Xx7ZNSCwNYAl YKCbYdBwPFLZZqRtU5YcR5HEq3XnW1TbDI94jJfbmkZeZUboGA6HBT8wOMKkWZXBOR0MwCIwpM1clhBw RZWuTEFBEaMdV65fjFUgLPAwBTMaAPNjNv3MPTQuQ8 XxhtVwyOwaxzJsXDVcCJYWYP3SSPmpplFuzCQnbVwtIP65wTlbVK4KVy6HWhWfUZ5eko0ZrLThOl1NCJ EtFh4SSYXrJQJxWQEvAKR9QZSpOaVtLDnbCIMyELKqQGB0HVOaHQWcSN6DIxMeIMJsMzH0LCHyDEIxYT Wkyx9MJENrUFTlHzF5FNUyRLAhZITrFHhqEGGbHTHn OIX9JAHpSEPgTX8HNvWgPGNtOWD6UisqTTXcWKNkgt2JSWUcUFDjQkR9NzGoROJlFVFhQFwnYPXeXYD7 VLMlVYJpBQYwXW9BBjQrZWKiCIEtADTzUSVwRJKlad0MYPLxEJUcEWJtAnMtJHHiBSVpZRmvQOIbTFY7 Fxi9OISaBWXwPC0BFlUzSETjPKN3FZVfVYDzDMQwhw 2UQPHgKNLwCMq6VXRoWUDiGALwWCseERLrFCV9DJF0OTVwZHAmXR7EEhDgMRNrGQv7LvQaGXAhNJBmbh 1NPYWtYPLpICDqTYEjNLGlCQIhYMmyZCJdAMZ4OMr5CGUwWLRtQG3KWlEgJRIvGHrfAnLcQUDvHCOock 6DATVqDPPuREh3HuSdEZRqHCJtQMspKPFdADXvMCYf NNGaAMBbDI7QJdTwXWZaJqSuElYyWHYhNRHikt4VBPQgXTHvNDOoEKIbMCOwSRYgBUthFRYiIFSaKFe4 TTLgKLDfZG8HUiDrGENpPkSaWhHdZNGdBVHoem8XKYRwKJIvDyy8PfIvZOQhQBRkKTfoMOEzGZCgJCZ0 KJVoNLPlWY5JKuDhVOKbQiU2RFhbNQAvOTOqed5FhJ QjwAqdgq8PQScUOj4SnHeeWIE9NQhqSi7afTKuTuPgJKCKSz8ZnlExUGEnWSNJUEllSPNgJBC2AoS9XB g9HSQiVAu6VrJ5RvZqHXYvVORdYWd6YaetDgV6ZuEiUSm0AOtrMIH3RRk0Ghy0CaLcLXUqReK8CjX4K8 M+MA1mYCz+Qq4Gj4XuoyT3fjRqQMimAeAjFe6BRMAIP5TAOc== ID Date Data Source [id number] 03/15/2021 12:37:46 AM EDT [facility] Name Value Range Interpretation Code Description Data Stephanie rce(s) Supporting Document(s) Care Plan [facility] ICMPWc8nUkPJOnCw11/OWGfnJSBik3ViFEbiECe7HBorCUJuM6YaUKY0nW7vLFQ3MYfSFyNzQrYvXEH2 lbm [file] ID Date Data Source [id number] 03/15/2021 12:36:31 AM EDT [facility] Name Value Range Interpretation Code Description Data Stephanie rce(s) Supporting Document(s) Nursing Note [facility] JGFTFw1cJuSMGwZx12/SDPspJZYne2UxXRnkCVd1NCugBPZxR1VfFEN1hR2oAMK3OLtTHvQzYuGrKBY0 lbm [file] 54Vuz/dPKdwFM/1rTjLd4W0zOZW1eNTxz2vsXY7Rzt7oarxOOvXc+cU/wYeh80/J83FowZge93zv+journeyman pipe welder dOaXV18SVEYQOUIeyw1oYwlf1OK5tsm18DTEg+mquIs7pUSdZOYhr/PsTwFPSoriaVlJ+xXP/paVzBMa jNtLngNENxvuFHnPYEdFzGZRGh6wZIoCcfnmdFRYeH uENNl9J1WGEe+Tw+BJ+2In8wb0ZKL9DEXzqQzdJM5jITobKK5zsXrGxUBuCW+/urSII/xxLtF9CvqIab IptfUXbEqkTJTstq0u4YWQKba1FFX9wxljNKwtljCuy87ESVtPJwpRFed+uJbXzF8e95i3su5ae3dBnj DbK3FAK/ucJroPRw/vpxidSO83mQXBjarcUeP7hEL8 f8ZBpauo3PaPKOpZbpxzdIunFqfIVBfWX5cVnMfdL0hGhsYxeOoTRQVOrpFnQNhA5YPtKFKLFoRQzViJ qQA0fGHE6CTkOpIZ8PjMJCjecSKIfVUBCtap/njIY1TXV+QBm06bVMt9VR6pDCoUhghVsWqcrf1Flli6 efQk61VcTWkt4G0Iu0Dxm0uppcx5M2C/UsJ6ieLZZ5 heXQRN35n0r5OKm/MweICGlAjWqaZuTSBqqWE8QcJ4fyYGnKoHbBG7ISocAqNIxHkMNNeZ4lgimC0FQa prvB2gHb0nuLu6YNvMPdLOUFsRGj/fgivlk9SVMqsYzDgXIks59s3Z9ijqjUwdnG3Ve3ScmGLv8pP2NA 8m+/htbV46zmStbO4t1+jnNiWAhcJxjxga7ccYYAki +UK31Ek4cxIa0Y6lKV8DYdQE0wake6vwEHoYo3Br1N6E2xS/JJc49OxS2zdCCp1PAgDH/Z3Cnq2EecW4 X5WBRtg+39t6koaqqVi7+t9wkHPSHJpuioodOcZZXVjHBYxzaPxQy9+MWYvpIenA0e/p0QAyFgPQ9e94 3Aqi3pi83xnZb75Cx2MnNK81yN2F8r41B4+mlCD5vw [file] Rufads4ImGWFqr0DBuLHx4oC37HmH+V94TnwmZ9Z1fwc9N+j9MgcNk2OQn58PSIMRnAq73ag74Y7+popcorn attendant [file] XyVOB4Zns4Ri3mRNPXLs3+MNjwaGGfeLmcWYNNWjS5AHV8NWibQDDWVk5V ID Date Data Source [id number] 03/14/2021 04:35:03 PM EDT [facility] Name Value Range Interpretation Code Description Data Stephanie rce(s) Supporting Document(s) Nursing Note [facility] NWAHIm6pWaOONbBg28/SQEwlTKMoh2DyCHbiFBf8CRcdEWGsP7ZaMCY3uU2qAJP4OTdGJdWzDfFoMEQt lbm [file] y0CA2ADFR0ZOBsUp7WTXRkIY9SIKGlPDTeFBFVWuGe MOYpDcEmSCGbGXLQFKfbLXEpH0BoSRS3CGWrEk6+VGwmLC4SH3FdTEE5BJy7PR0+STznOG6XdTZIX8Gr wLJwOBczM8ZMQA4FLGA5XY8UpWNjYQ1EcMJIP9AzvXGoJc0sEMXnl5NmGl9bX4JFJDIZDZJeNDkzZDec BRBgCYf4W5O1YRTuS9XCW279eSTdbXg3Lv3uN1LPEJ nIGwXjFFxoRQmxLXGfXJw3C0C8CNSqJ8OPE8YbOvKwynNuF5V+CuAlKDVYUA3GYQNWABv6T8B5fKPuR0 H4jTrJhJJ5XI7MPD2QvIDyjEJyb67+AgYHCyMvW8VGO4TSDS5NUKi5P5C8vWQmD5O5nVoJdEM4PL2KCH 6VnCpomXQdSv6wFSygOQP+Re5ZSx7NDaVyID6dci5Q YcKuILMaOawBNqg1Y3bunqx3rDYkHkV0L9M7IhE0nBVeRN6PY0U4tPLaOCD2GPPnmDR+Vy7Ge0MzSKIp IKs2E2pjMVRjIETsJcBdmK97W++8hmjxdHH2T3f4NKICuNGjpDhVobKfT2zZQLD5g2L2ZBm/Kv1QRNN1 wIj5nSSqHBVaWXq5fP1adTg8RxFnKO51WRZxGXsgoF 7eHji9O6Rra3FmYu3uBv7nnLNrFw6OOpEeQTR2svFaAkJYDwR2vHahkufuFTH9X7o1lUA7Ra51f5kfpv Kzc9MpUgC5GWwlXWBwVcLehbNxAIT4xhXleL1poqFyXp6UETEeGPkcsuKrFqPUPj9WThUkBT03JdswpM 1ldGE+DQogICAgICAgICAgICAgICAgICAgICAgICAg ICAgICAgICAgICAgICAgICAgICAgICAgICAgICAgICAgICAgICAgICAgICAgICAgICAgICAgICAgICAg ICAgICAgICAgICAgICAgDQogICAgICAgICAgICAgICAgICAgICAgICAgICAgICAgICAgICAgICAgICAg ICAgICAgICAgICAgICAgICAgICAgICAgICAgICAgIC AgICAgICAgICAgICAgICAgICAgICAgICAgDQogICAgICAgICAgICAgICAgICAgICAgICAgICAgICAgIC AgICAgICAgICAgICAgICAgICAgICAgICAgICAgICAgICAgICAgICAgICAgICAgICAgICAgICAgICAgIC AgICAgICAgDQogICAgICAgICAgICAgICAgICAgICAg ICAgICAgICAgICAgICAgICAgICAgICAgICAgICAgICAgICAgICAgICAgICAgICAgICAgICAgICAgICAg ICAgICAgICAgICAgICAgICAgDQogICAgICAgICAgICAgICAgICAgICAgICAgICAgICAgICAgICAgICAg ICAgICAgICAgICAgICAgICAgICAgICAgICAgICAgIC AgICAgICAgICAgICAgICAgICAgICAgICAgICAgDQogICAgICAgICAgICAgICAgICAgICAgICAgICAgIC AgICAgICAgICAgICAgICAgICAgICAgICAgICAgICAgICAgICAgICAgICAgICAgICAgICAgICAgICAgIC AgICAgICAgICAgDQogICAgICAgICAgICAgICAgICAg ICAgICAgICAgICAgICAgICAgICAgICAgICAgICAgICAgICAgICAgICAgICAgICAgICAgICAgICAgICAg ICAgICAgICAgICAgICAgICAgICAgDQogICAgICAgICAgICAgICAgICAgICAgICAgICAgICAgICAgICAg ICAgICAgICAgICAgICAgICAgICAgICAgICAgICAgIC AgICAgICAgICAgICAgICAgICAgICAgICAgICAgICAgDQogICAgICAgICAgICAgICAgICAgICAgICAgIC AgICAgICAgICAgICAgICAgICAgICAgICAgICAgICAgICAgICAgICAgICAgICAgICAgICAgICAgICAgIC AgICAgICAgICAgICAgDQogICAgICAgICAgICAgICAg ICAgICAgICAgICAgICAgICAgICAgICAgICAgICAgICAgICAgICAgICAgICAgICAgICAgICAgICAgICAg SNCoQIKxNJReJLQwPGSxGRFcKYNvTVRhEJj6W3liNHKkNNMyAQ7rGYo4Nz1+CMwSRzSyDSP1yyXqzQ9S FH4ar6SzGYujJXCqh2AnRMg3FQ8FODNrHRtzUW2NGO tykp4AJVCvDMGmaHNYr4eeLoJdSCA1MKYjUkpfTA9JAWMmX9eurgEnCQZgPGMREU3QIxDrX7SryJ98CD ENCj4+OYhfdsXjBdnBEoWrDAWal9LzKRu0ZG3LQRXePjuou8AgIdJgMKEVBHzqTL0IBMW8MRBjPWJaDa 6TLOXtJ077taCaAB7ZNn2SKdHvUW0pho4FBjUuMBNp FnhQRyi7FRebVH9AuLPhCMgMcGCdoO3nWN5xrFGkXjzxTKgxsxPjHdhngBAkq8tod1ccEUCKFMC4BWrv Zf9wZHEkMAL2BnP3PMIRVN9PWCGpIOVimOPbBSXwMAHPBQ1BDYqlDPQ0QfthmbSdoBPjDUxoHE3YAQLi bnQgMjIgMCBSDQo+Zx8MEV9rd5LsYAqaHYCzAB6wwd 1KNOkDUiEbD4K7sRRbY8Z3HPqhLo8ETWClREKiYmDdHTOOXQipCV1NIZ3khgV3FX7RmQLjITOxMZCtoF TfSMf4E77bvTZlNUixDS6DCNX+Dillon+Bm2STDCcHAXuTROiAvAnJXPPRpAnE9NbA8MWd1NgO9TiBI02iI ttxwXmCKzmLT0LWX9eSUYjZCMRTQ4JzWOquL7qcaSa DlQvBIISEaDjB67luNWbPSJxXWWoASSnDj3ZOFUnA7BbzeUumOvvunEvVXAuWYXERX8GIOqaqhRokYSn yDosBM60fAlnSE4FAf3LGxYuEU5gho9MiMDuGh8KPQPsWL1JIQZeJCLlSACrSKT5HQAaTiImFWqlQMLp XCYcOIP9ARCcQTThYN9CUwQhJODuTAn0OIxqWPPlKW Yhck5ORYXzOYNjMLhlYuFuBCBpKYRtQBmlFOIsXTZjNOZ6PIEbDGTlWP5WXaLgULPsWNP5PtRfLVBkFI Euxp0ZYLGkPZQmPVjtREJgLXOzZNZwGMzsHWZcAAEgVnbqOHHrQHBaBJ2XHoPuIPDxKZU5SJEgVSLeVY Kggt1GBSBrLNAtLqW6ICSnGIHmOKXbHGkbVTPxMQA3 MTH5GSExOAPuRU9STuUhSDTjFIBzWjBaUDRpXSHocp8TXGHnMUNbZDOeTxAfNAKcPXSxKXfgNTXlDBM6 UdU7AYGmSIRiNB6PWuToCPVwJBpwXRBcHCAwUZIwfo4BPGNrTINnVxL1NCBkGPRvXNTrPRxxAYNdGLF5 UHCcSLMiFWAvRT2LZfUrZPTnRPt8XfHmELGsCFJinj 8GKEFqYZPnHPCyBGWiUIAqLALkTGlkKSIeFJT9CLOwBBOvFAQnVN2GJoTiLHWmUSu5CsMdPFPpIDRrph 6MWUVcWHKoOND2SyLiWANiBOHcWJlzNQUvUKTuEIObJCEuFZVbSW4LXtNgOIRbOkE4XZQiJZWsSOLxit 8ONQWtIARmBET0UNVkIUEjVHZeNAu9vtDwjNHaTCe8 NA2QR2IaayEhRfLWGo3Hp524DLM2VIUxFn1KN7sqMz3xXGIoQEZWJx1KVTq4TcF1GzE5ROP0QiftRuf5 YThiZTRiMDMzYTNjYjUwYmI+AJjaOrEnTPl3NoCwASJjRhdbHOHtZECxXkAlA6EaYCNbHm7zWELZSn4+ QPdbeGOzdXgeNORHUfOyCwg9ZTqyZMSXVd3L ID Date Data Source [id number] 03/14/2021 11:53:06 AM EDT [facility] Name Value Range Interpretation Code Description Data Stephanie rce(s) Supporting Document(s) Nursing Note [facility] DMKUZm6dKmNWOsXz63/UBOvdTOSgs8OwCWojDJk9ZHwhSCTvB8MeXVO3cV1xXBH0RTrQJbXfAjEkLPYe lbm [file] E0RWQeQjN6ClSjBhDsYzVmRlGzWD6KQd3YHoY0CEJ4jPFqMm6JNvTlFNpFMbAhRX2SWRi= ID Date Data Source [id number] 03/14/2021 11:44:44 AM EDT [facility] Name Value Range Interpretation Code Description Data Stephanie rce(s) Supporting Document(s) Care Plan [facility] QLGYWh0iMfBCCmFi22/IACzfSDOwe4DbMFzxYQg4YPglZMSwV9DxEHI2dG6rMUY3BGsHBjQrOyLqSZHb lbm EtVggZXmBvTKJrLmqFPlTlGOihYlfxxVXzRN2XhVV3IPOpE44qCPYqHJUbB9FxXXo4NB1+TAvsWNA7bb AsxX0QXRQsYNti8jQIwj+w/6ZZMybIKYpaGwuG3mDZwrqEz4TKxaT4IM9xz2SW/kvSs7Ja24kT4hDGcP DDEdhaRobojpGB5l9skFBnASR/2oA6TeaVzDxMVnWm FmLVKxFCCwQzLCwWuFfJ/8lSesBPEMicGRhuNTmYOFvNwGFXJDDY8HzECuUqQnq1oTDzGXghl+4xAxcO uLyhUVu7sIwdfKnfUo4x2hD1rT8HQ8vqepKeTOpvsQLuY7VZVOPBZje2wJ8SuzYCsSVdLPauXNYfWM1f 9xCUIvfqo9noN1fC9bRiSUwfpsd7gIhVP30vmWzkOp ysPOK5btTqMwJ3ckid/KLOcirfqXanoK3moX0CPnQcrUH+gdAXmyxJ8u789J4ZBNU3brdj81jFW4Ngk7 rn4GtJrzxHSBszuQpcTJe9u0wArW2AOTjim77c++Qf0YoCo+mPcbrXEGbmDDeaV/rudy++HKzWI5DlZD6 [file] ICAgICAgICAgICAgICAgICAgICAgICAgICAgICAgIC AgICAgICAgICAgICAgICAgICAgICAgICAgICAgICAgICAgICAgICAgICAgICAgICAgICAgICAgICAgDQ ogICAgICAgICAgICAgICAgICAgICAgICAgICAgICAgICAgICAgICAgICAgICAgICAgICAgICAgICAgIC AgICAgICAgICAgICAgICAgICAgICAgICAgICAgICAg ICAgICAgICAgDQogICAgICAgICAgICAgICAgICAgICAgICAgICAgICAgICAgICAgICAgICAgICAgICAg ICAgICAgICAgICAgICAgICAgICAgICAgICAgICAgICAgICAgICAgICAgICAgICAgICAgDQogICAgICAg ICAgICAgICAgICAgICAgICAgICAgICAgICAgICAgIC AgICAgICAgICAgICAgICAgICAgICAgICAgICAgICAgICAgICAgICAgICAgICAgICAgICAgICAgICAgIC AgDQogICAgICAgICAgICAgICAgICAgICAgICAgICAgICAgICAgICAgICAgICAgICAgICAgICAgICAgIC AgICAgICAgICAgICAgICAgICAgICAgICAgICAgICAg ICAgICAgICAgICAgDQogICAgICAgICAgICAgICAgICAgICAgICAgICAgICAgICAgICAgICAgICAgICAg ICAgICAgICAgICAgICAgICAgICAgICAgICAgICAgICAgICAgICAgICAgICAgICAgICAgICAgDQogICAg ICAgICAgICAgICAgICAgICAgICAgICAgICAgICAgIC AgICAgICAgICAgICAgICAgICAgICAgICAgICAgICAgICAgICAgICAgICAgICAgICAgICAgICAgICAgIC AgICAgDQogICAgICAgICAgICAgICAgICAgICAgICAgICAgICAgICAgICAgICAgICAgICAgICAgICAgIC AgICAgICAgICAgICAgICAgICAgICAgICAgICAgICAg ICAgICAgICAgICAgICAgDQogICAgICAgICAgICAgICAgICAgICAgICAgICAgICAgICAgICAgICAgICAg ICAgICAgICAgICAgICAgICAgICAgICAgICAgICAgICAgICAgICAgICAgICAgICAgICAgICAgICAgDQog ICAgICAgICAgICAgICAgICAgICAgICAgICAgICAgIC AgICAgICAgICAgICAgICAgICAgICAgICAgICAgICAgICAgICAgICAgICAgICAgICAgICAgICAgICAgIC TlNGDvFNPkVEc0I0edYYChZECxFB0vXBa9Ap1+YSrEVhWqDHV5mnUcgC0YVC7ct9NhONyoBTXqj4RsPD w2IH2YEGYbFWtyWC2CAToyhm8MLAMjQDZiqGBNj5do KuTaSRM9DSVeRbjiFJ9YOYKzY6wxjiHjPEZdGROMXX0QTcDpG1GklN54FWTPZf2+DQplbmRvYmoNCjI1 QLSsr5SeHFt7AL8SIZQdUeooi7BnIyPsQVEVEBtpKW6XTSQ7GRL7LSOoRf2QQFMqU519vmHsZW5XDp9P HlAaLU5txg9VPxSyVXCdRuuYXir5YSmsLL9NwKQhBX eDTKNsNENsVX6jKgohFWxmjjEuYlrlpSQhs8fmh8cdIPTWGHA4IUpyGe2dYGLdOGNhZhG1WSVLOQ7QDV VzCVLdcYSkFGHhTETEHX6ILUdtMHD1MentdtPamJVjSBvvKQ7PDLNmkfDhWlLwXIOFEKf+Pe6IBF1mw1 AzLEvrIaHdFF1tzo1CASlIMnPaD8D3wJCxY1K9MJqr Ot7SCFQzNPAlEaLfFHQYDNqfXU9NUS6rpvJ6ZZ1ZoUWeFAUwXFRdeSOkEVt2Q67caKWsKFjvLJ1YHEY+ Dillon+Eq6YHWTfPROqIYEfTbIcJCJIHwHqW2OmG3ZUv9DbR2WiAT11kZdhayByDJybLE4CVP0jBHKiVARN GP1AaGBtkP0gyeDcRMDiZBBUMuAnA82raCKjAOMcUR Y2UQGkDk9AZNYcK4ZnyhXezYftdsQsQTVpCWOWSG8OSJvlxsIgxFNhaFesYT61uCmtEQ6VBu3NHrDdUF 2kvd2NrDCxSq7YBVSkPG1RHEUzBMFvYLQnYXS1MEUlLpJxMZraYMKyBZLsXWT4XLOaUCGqHU9JBoExJY LaQaNdEvUrOBEaHOYziw0MXGBuJUNlONl3PnOeGOAm WBSjZIucAASbNXWfKMR6KMUkFVXgLU8HMpMiVFVqDNYdYbQxJNFaAXAhpf9VLKFiQBRzJFTfNwSeZESt SGNuEQuwBLTjOUCoCih6VXEgYDDiWR9LCuHvEMYkYVZ2TEMpNSAmDHHgjy2GTRNsXYOuKlq5FGBtGQOu DYSjUYtcSQYhBIGpUnZ2GCAuFMZiTK4ETnYgQCFyOW P5NnPmSQRrRXHhpf2ODAPuNNXgXXSwBEAoROQrWLYeLEufMMAeIJX6XMQ5LGErBDCgCA3DNyCvJHIjQU T2YRGzZCUiTHFiiw8YGCGjMOGdStm6JjZrKWTmTMIsEFgoSJGkXUJ7OhRvAJNkBYLaZN4ASrTyOSCdVQ qnBoeuQMMsKLDwmp1KPZSaQZGwMAWsWDHrYJRaRJEj NKpsXCTvQBC8LUZ2XFEsFDZyGH4GEzUaENRuSOn5IMLiEMXlILCban4FCQJuNBCwYSA4TjMyJTDlZYBy DAhyUSYwRGA0HGEtGTQdOOCbWA6TAyExMMFqAjZwLBDnFIGnKNQjqq3SCMFyPBHaAWJjZtFpJKClYDVm OMxtDYQbTUBnTSe9VLXuUJItHI4PDlFoDDToIqP9DK QgTXWwRVPjno5BNSBvUSJqRlC4EJHkKXZuTGCdHHj5cqBwwYMmOSk7KO1FO5HetgOdKetVVa0Um317JK D3LDGhDo2QO8blXw0mWMSqNWFCAz4ROGi7FHS1OCVzOQG8PpI0HsEsTDkmYmX8GvynZnUxSRRhLjW+ID ppPPt3QMN3GFw6QoE3PDYjUQX4NykvDXJxGWNeVSWa PY7mHOCXXy3+FUexwFQuwBvgIHKOHjGtLiV2FArlWDFDDf1U ID Date Data Source [id number] 03/14/2021 11:35:44 AM EDT [facility] Name Value Range Interpretation Code Description Data Stephanie rce(s) Supporting Document(s) Nursing Note [facility] GPDEFa6pTwPPQiDx88/ONNkyXPYyk3TkUTkbQSz0LXhnJYFrP4PfHVF5jI4pXQK4PSxGOjIeGvKvAJJz lbm [file] PUhvXn0LKMOTD3VIBi== ID Date Data Source [id number] 03/14/2021 11:12:00 AM EDT [facility] Exam Number: [id number] Reported By: Maria De Jesus BARAJAS M.D. Signed By: Valeri BARAJAS M.D. Name Value Range Interpretation Code Description Data Stephanie rce(s) Supporting Document(s) ID Date Data Source [id number] 03/14/2021 10:21:29 AM EDT [facility] Name Value Range Interpretation Code Description Data Stephanie rce(s) Supporting Document(s) H&P [facility] ILRZDy1aScESBfLl86/IDNwaOLOop3MvBHggIIb9QDnhQHAyC7AaVWI1vB5xQNY2EHwAJoZsEtEhQKVv lbm [file] dLFyAa5YOXM7TlVUXfNaCU0VMVp= ID Date Data Source [id number] 03/14/2021 05:34:50 AM EDT [facility] Name Value Range Interpretation Code Description Data Stephanie rce(s) Supporting Document(s) Nursing Note [facility] GYYBJw4gGuAWCfJz24/BWBnsYYHun2RbGJukWCv0XDhcTOInW6FsYZD8pQ8oGQG4JFyKPxIjTeCiYRHo lbm [file] o= ID Date Data Source [id number] 03/14/2021 01:22:47 AM EDT [facility] Name Value Range Interpretation Code Description Data Stephanie rce(s) Supporting Document(s) Nursing Note [facility] MHLQNs5qXyCBAmBw27/KSKbwHKSwy8XcWYfnNIt2TDxcLAMtE3GiFMX2dU8iYLI3BZxTYgXyScQeWPYa lbm [file] Wa3MDgD0RIC4jWChRl4QJaNuDjIQLgMgID7XKIk= ID Date Data Source [id number] 03/13/2021 10:37:10 PM EDT [facility] Name Value Range Interpretation Code Description Data Stephanie rce(s) Supporting Document(s) Nursing Note [facility] PDFLDp3gWoCYLkDt85/FGXdjDJRoz0CcEXjxOBk1AOvyUBLxX3QoKPE4sB6bUTL6LEbQNfRtVjYhJFXh lbm [file] Im7LLfL4OLL9hLOmYm7JSlAfLEBPYaWxOP3SRJq= ID Date Data Source [id number] 03/13/2021 07:24:52 PM EDT [facility] Name Value Range Interpretation Code Description Data Stephanie rce(s) Supporting Document(s) Care Plan [facility] AISENd5oBiQKWlWn73/PTLamAYGgk3NsIMclFSy5OSrtVSWkN0FrLUR9zB8lYRQ7YJeLVyFtSsQqSDDk lbm [file] 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 acid 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 operator+9D9OT7//+ANXXxel8KYsnSoxzNL6gV3Z4y0noBttJvv+e8gLzAxPXUjdgMh3UQRkBThh06k5PIcf [file] RdNW90imwzpeeL9EbdjPiafAuoGSgszOOR5mUS41hOLb2uJhouMXrlL33g+WIrJ8shmuKUXM8M1T/Mohsen hDObZ5WRQMcGBtjVH8UT1sMcRqVPD3/tBniAMGBSTAtvVqqBvdlwucujuxGveLdSvcLEnXyBV88TqPMw 4fZBhPzVExxZ/LBZXnSN67ZBVKaLV8KNCjWRvhkOiN nG6ExxThutkeqVUvXwFwrYxLMCYZoixcxOTEbNhY2xjdqiRYTO9sb4iPVysHcgEnfHpJ5VHqV1n1mq3l QqcEuY0kNSxmvH2ePWUtGmIrWZyrSBP5hJN9gs8OQqBtpKFEfv9x+QD101UjlwqUageJUYgXfQ1Gvsjx kFO4IB4vRoIIEPRFVaWATffTpsE5uhjrHeBSh7VAnM GLokNJsCmJoCvDsEDkJJdt46XrL/tQl7JlhctMSwtXtSMjGSvqWikf6e+xGsa8vpSQvMes5W1s5aAdwO rF97aaYg8XFBZg5BLJ6kIsijBzQ9D4Ko8+oH8p5kRlcomeHrSOLIRjJLed0JHn2eQKNA/XJV0ZsruqvY GvoSVyXsOtIZXk9SqaXV3KpNMgnQnNAOqWA2xJH+[place] [file] DQo= ID Date Data Source [id number] 03/13/2021 06:53:54 PM EDT [facility] Name Value Range Interpretation Code Description Data Stephanie rce(s) Supporting Document(s) Nursing Note [facility] YHSEOw8dCiYWMoMc25/TPKouQFLwb8AaPCymAWi0PTvzEUDmH9UwEVO2fR0tNBH4TGbLUoSkGhZxMUXt lbm [file] AgICAgICAgICAgICAgICAgICAgICAgICAgICAgICAg ICAgICAgICAgICAgICAgICAgICAgICAgICAgICAgICAgICAgICAgICAgICAgICAgICAgICAgICAgICAg ICAgICAgICANCiAgICAgICAgICAgICAgICAgICAgICAgICAgICAgICAgICAgICAgICAgICAgICAgICAg ICAgICAgICAgICAgICAgICAgICAgICAgICAgICAgIC AgICAgICAgICAgICAgICAgICANCiAgICAgICAgICAgICAgICAgICAgICAgICAgICAgICAgICAgICAgIC AgICAgICAgICAgICAgICAgICAgICAgICAgICAgICAgICAgICAgICAgICAgICAgICAgICAgICAgICAgIC ANCiAgICAgICAgICAgICAgICAgICAgICAgICAgICAg ICAgICAgICAgICAgICAgICAgICAgICAgICAgICAgICAgICAgICAgICAgICAgICAgICAgICAgICAgICAg ICAgICAgICAgICANCiAgICAgICAgICAgICAgICAgICAgICAgICAgICAgICAgICAgICAgICAgICAgICAg ICAgICAgICAgICAgICAgICAgICAgICAgICAgICAgIC AgICAgICAgICAgICAgICAgICAgICANCiAgICAgICAgICAgICAgICAgICAgICAgICAgICAgICAgICAgIC AgICAgICAgICAgICAgICAgICAgICAgICAgICAgICAgICAgICAgICAgICAgICAgICAgICAgICAgICAgIC AgICANCiAgICAgICAgICAgICAgICAgICAgICAgICAg ICAgICAgICAgICAgICAgICAgICAgICAgICAgICAgICAgICAgICAgICAgICAgICAgICAgICAgICAgICAg ICAgICAgICAgICAgICANCiAgICAgICAgICAgICAgICAgICAgICAgICAgICAgICAgICAgICAgICAgICAg ICAgICAgICAgICAgICAgICAgICAgICAgICAgICAgIC AgICAgICAgICAgICAgICAgICAgICAgICANCiAgICAgICAgICAgICAgICAgICAgICAgICAgICAgICAgIC AgICAgICAgICAgICAgICAgICAgICAgICAgICAgICAgICAgICAgICAgICAgICAgICAgICAgICAgICAgIC AgICAgICANCiAgICAgICAgICAgICAgICAgICAgICAg ICAgICAgICAgICAgICAgICAgICAgICAgICAgICAgICAgICAgICAgICAgICAgICAgICAgICAgICAgICAg ICAgICAgICAgICAgICAgICANCjw/eCPeV5hedEXmndF3R2gwIq3ERu0HYS9sm3AvWUGqJXbmduZnGpcB BiWaITSwHvnNXhd9FIeqPR6ViLTvJ6UkE2JmOUdyRS 3JWXVlLNWzaMVkLGUkCUHeHdP5QAYoISvyFL3WvSUmKLliITHdYCLzHS8RMZLyH815oeOcUR2AGk8PJz CfFP3fxo9QOvQdXGGeGtoYSwf7CYjnJS7ScYHxeGFbZcPsXTTVUfFpX2aiu1KgWqGkFBQLFTvcWK9Sb3 VudCAxDQo+Ks9FRV5xf3WpGEaqHfDaQF4fbj6CUHfT TpFvS3OmrEolJK52afZhtdlzYm02PEZndNCAj4ZaYlVCC2O6PX2jHXTYTFX7TCycBa6uJNDjTCL0NcN6 LMDSQW4EFIDwXCYgnZEtFFKpEYNQGC7MQWqeRDU9WmlxktAieNKwPBkkNP7JOGKjxdZnPrBvPXJJXTz+ Dq1PGM0yb5ZmQXmjTAGnWM9cek3SYQuDNqBpN4B5aD NoX2O0JLasNw3YLHHtQWMsAbZoRMKBVKjqDK4CCO7okxB0NC0YkCVnTTQrDTNlsUHxITz4L41jeAOoNL mqKQ2OOXZ+Dillon+Cr8CJRFwTAMzMJThXgZvFLSWSlPxG3HrR4VPq3HvP0QnLR59dHouxxCfSNgoBN7HJU 7bVFAhSKODSX7RpFBwyI9qliDuTrVoOWJSQgWnQ44y gRAiATSkJEQpOWUkYv2YTZBaF1SoanUfkLnyxiAhJQJwRICRPW6DJVrlgiYdtLGkvHxiKW77dQlmVC9J Lw9SRsCaHK9qbz4QpGLpUc7BAHBqRI4PZSXdDZUiGTUnAGR6IOGdDuDhDGasSVQcLRBqWBS1ENZgSPCq EN2UOoDxVTNyNTe4PTnvVKPpQQIiqk3DHVYkZZGpWR KnRNZbTXJaXWNeEYizSVQcRBLrHCX9MBApGFFmWC6SLgIsFKWlPKBwMpcvKXHeLQSddx1TMEVrRUEcKj ZvUmHcDRGjUJNkUZnkXWCwDPSfKiecOPGkZWVpUH6LDfYuMPLpURB5GVVnPPDcBXLcbv8PJPLyJZIuUu V1McHoVPHgNINcHFxfIXMnRHB8ErA2YWYuOTKxKC2O RfQiVKEeVIQ8McRuJLMjOHAglv2SFVReNYYoKSHiAEIdAYWbXHXsELalEMElHUS0EtG4PPXjYFFkTR0W ThRdDEJaRCq3IPPdLMRmYWFlvl0EKLVfUVOsCwr6YVBnBXZvESMfDDvrNWCrCPQ1ZII3JJDiILVrVQ1D PqLmNLQkNEotIrKcXXPpZPHrit4MPNPuYRIbTXJpYa JgRYXfIZBtEKceEWZqZEZ9ERIhOYVvYXOhBG7BSvRdTZKeVGm3OfDrSOPpLWEqda9EJOFjYYYlDRq7KL PhEYFoYTFaVYsjFGSiTENsVVE8DBKvMINyWA1GFzTwHMPdXzS9JAVmMMAcJTHcsp1CMMPhXFRkXXR5TM IaZNXdQXZwDQo4jpCvnAGvDAd9WZ5RW2BrptOjRlTM Xb8Vp418SUB0ZMGhKd2JH9tjZm1bWQSsWNYKWp4LFNp1MicrAOXcB6B6WeQsQITqXIB4AyPbDeI3WOrz NTNlODk+MSlmVGP7EeNdVGlzJ3F4DtJ4IWP1DSBoDHCjY7H4V1B4NO2hDMXSNp6+DQpzdGFydHhyZWYN VfStHWl9QKzvBMVHMh9L ID Date Data Source [id number] 03/13/2021 05:56:16 PM EDT [facility] Name Value Range Interpretation Code Description Data Stephanie rce(s) Supporting Document(s) Nursing Note [facility] OQJXYm4fDjQTIsUi99/AKPdzEHPfb0ToXTcmDVz3NAbuSGPvC7HcEIW9pH3yFBB4CCtAEzGiUkKpVKUw lbm [file] breaker up/VbYra/24YrVW9ekqh5dyMMLiBHU5NNiUvh5h5q [file] BtLTbqTWK5M7QyYuS1HuXtVUQmJoJ+JP6qFNl+Sq1It6YibhH9nmOuZLizVUJ0Od6QVIDOU8UKOc== ID Date Data Source [id number] 03/13/2021 05:15:24 PM EDT [facility] Name Value Range Interpretation Code Description Data Stephanie rce(s) Supporting Document(s) Nursing Note [facility] MZMWJs3iWiLVWnNg74/SIEluWHUlm8CiCVxqMCy5QCccLQMkC5OjPKQ2cJ5uCVQ7BQcLEaAwDuBoHBZa lbm [file] BBW8JZQ4EbDyDI3YPu0MOeU1YTR8mKOoAp4RQiBmApsCXbXzZC4ERZa= ID Date Data Source [id number] 03/13/2021 05:01:36 PM EDT [facility] Name Value Range Interpretation Code Description Data Stephanie rce(s) Supporting Document(s) Nursing Note [facility] DHOMEe5gMaNQCyOj04/SSIvlCESvm2PkFUsbHRy6XYumTNEuS9SwZKD8aM7wXRV4BNiTZsFpDoScMNCb lbm [file] WyTW8ZQDf= ID Date Data Source [id number] 03/13/2021 02:53:46 PM EDT [facility] Name Value Range Interpretation Code Description Data Stephanie rce(s) Supporting Document(s) Nursing Note [facility] JWVDGf5rBoWJDeMj39/RJRzwBPNsd2TlNBglBCe8WTzyMFNdJ4EnEZG3kL9aCWF8UUrCYmAjVwXpLJGe lbm FdMlmAGhEnHIXxWjkURpXvOCguLdfopWEvWX4KyQM0GWCgY79vVFDfYVLsG3OkINX6FUH+Zj0ZDBZcrC ZwKA7DDzjO5A2Fsqd9Bk1uqa0Atk+lOYkJWBbb1fkmX4NyveKLvwp0oS9HFOX0Hjx2+Tzmn79Hsbmpmm V/ngYxopRNfKAQYNCNfqPRMzCm+e+aOFbjWJdX2r/1 l6Inzjf907wpbM4QLf+H7f4Ug+OWU2WY4IxM/5aAds58yoRTBiUeRFFbqsuSuI8GMV1Rxzz7UzvQSQjb M26nwltg56tSN0HnR8bcb1YvnGKJvnb7EUTTvP0CBLcg7qhXi2rjwAn2xyYbQf2RK6cO63reuzk5e9Wp PVpRSA6zV9cmsifiC2lmqg1MWuGSWI4xsCe98uMkCI KoDcCnw0huVOuGoi+RydERAvmOH8aUwQpJ+cmbZVCJPRCbeOGM4yGWFFRAbmsPfBFbOXJBn4t8gak8Ms B31MtbyS6lUdUhyb26aF6/6eOghQYceZnXolLpf8XokMRSJ/SYvP8saeA9c74MFYZ2NuuQ0goenWYcJS wQAjPdy0ucsv7lGM1Rq+d3voS5zSt4Wgex7xgsn5Vu Z8ODsbnSRA0e9Md3gSd9zPeQiptBzjE5eLcaq1QrU/P8ejX/+XsUndp//Nec/Dgc/Xlm58H1fPiIl3hW NtyOgRhOaDBOSvxIm6BmqY5pO5ySxCy/cR9tz4vte6hIeq8Insuom4G9sMLcJ4HjIVt1QKKN+Vfco1Cf xWQ2gzMGUijMdYMhQTF0K9Qe5E3DsiAon64MR9+hardy [file] ICAgICAgICAgICAgICAgICAgICAgICAgICAgICAgICAgICAgICAgICAgICAgICAgICAgICAgICAgICAg ICAgICAgICAgICAgICAgICAgICANCiAgICAgICAgIC AgICAgICAgICAgICAgICAgICAgICAgICAgICAgICAgICAgICAgICAgICAgICAgICAgICAgICAgICAgIC AgICAgICAgICAgICAgICAgICAgICAgICAgICAgICANCiAgICAgICAgICAgICAgICAgICAgICAgICAgIC AgICAgICAgICAgICAgICAgICAgICAgICAgICAgICAg ICAgICAgICAgICAgICAgICAgICAgICAgICAgICAgICAgICAgICAgICANCiAgICAgICAgICAgICAgICAg ICAgICAgICAgICAgICAgICAgICAgICAgICAgICAgICAgICAgICAgICAgICAgICAgICAgICAgICAgICAg ICAgICAgICAgICAgICAgICAgICAgICANCiAgICAgIC AgICAgICAgICAgICAgICAgICAgICAgICAgICAgICAgICAgICAgICAgICAgICAgICAgICAgICAgICAgIC AgICAgICAgICAgICAgICAgICAgICAgICAgICAgICAgICANCiAgICAgICAgICAgICAgICAgICAgICAgIC AgICAgICAgICAgICAgICAgICAgICAgICAgICAgICAg ICAgICAgICAgICAgICAgICAgICAgICAgICAgICAgICAgICAgICAgICAgICANCiAgICAgICAgICAgICAg ICAgICAgICAgICAgICAgICAgICAgICAgICAgICAgICAgICAgICAgICAgICAgICAgICAgICAgICAgICAg ICAgICAgICAgICAgICAgICAgICAgICAgICANCiAgIC AgICAgICAgICAgICAgICAgICAgICAgICAgICAgICAgICAgICAgICAgICAgICAgICAgICAgICAgICAgIC AgICAgICAgICAgICAgICAgICAgICAgICAgICAgICAgICAgICANCiAgICAgICAgICAgICAgICAgICAgIC AgICAgICAgICAgICAgICAgICAgICAgICAgICAgICAg ICAgICAgICAgICAgICAgICAgICAgICAgICAgICAgICAgICAgICAgICAgICAgICANCiAgICAgICAgICAg ICAgICAgICAgICAgICAgICAgICAgICAgICAgICAgICAgICAgICAgICAgICAgICAgICAgICAgICAgICAg ICAgICAgICAgICAgICAgICAgICAgICAgICAgICANCj w/qWMbI1ymiWUtkwF8S6abXx6DJh8STC7ls4UfLNPyBJgbqiAfVveLWaWnCTIbLjkPUgn3PLnqVW5FhT EiU4DbG5YyJPsfYW5RDVYdMEIuqOGtFRAsAHTuKyO9SGYvGZedWC3OsGYcSWhaKTKrHAXbCX2HBEFjB3 93mcBiTL6HLy8FIzPiCG3fbn5ZCzMzBEBfCocGOoq8 LYuqFP7WjOYfyUXfDJMoNTVRCzVlB4wwj7TzVeIcPACKMFvsCL8Sa6KgpIMeDQo+Fc2ZJI1fl1HgVXjy SPBuSY9tem8QVUvQEeFxQ2DsgUuhZD88jjBifrvzCw53UYLhaGRTg4QzLiSGE9D2SL2oTFCKFLF1ZWpa Xd3lOVCaHMDgKfN4XLYEXV0MEDKbRNFlmWXyIWEkTP SDFU3KLMlfNVT7VnondkNbsJUsNEdyJV6TYRBwumYdJuXjSHUSHNz+Lq5XAZ9ob2MqYSzxFhAaIC6dfw 7IMGtUJpAkM2Q6mHMkP7Y1MCnwKi9GVDTnTJPkRhEoXFOYPBogBT5TJF0masJ8WG9JdTGbGJDaTTMauX KyTYf0F92tjTUgHZavQU2YTGQ+Dillon+Rb2VELHoMILk TWNuNuWkWRHNMqCwM8VtK6MJy4KvA7GlAP88tUxlqpSnNMbbID9NRH5jVWLnJDAEHE4HcDCvxG7jaeDu OOHkBSKAIwZkA63dfXIgIWAdTSGfDDXmNd3FQLTgZ1JgxtGymRejtjDdDRDjGPWPNQ7ZPUrbnyVzoMQi rNnpIK33rXqpFN8OLx9RWfQxAW7kho5DdOXkXx1MBJ PlKt5TOQXoCFPhGGIwQST1PGSoTeAlDFmtFDQuXTOmTQI9XPCmYUTxUY0JGiUzXFOtPjHsVJLrOFJaGZ Urhu8WIQUnVKVuHnbkLAVoDGZjFQPiMTlrGCTtYOCvRVN8LUYiNZIlSH0DPcMzJYPdIUTkBfGsUSNuDI Ssxl4PHGRzDPNsQcCtTgDfESGiLVFfAYkkJZVlDER8 Bdi0OOWbFVZnPG8IAcMfNADnFYJ1ARUxYRXpTQEtvn0LUJEvJBLtNET8RRZrXMQoQHUhTMajFBFmWVF8 CmU3QFOkSQOsYY1ADkCfYDOqYGW8NsTqPFGzVVDrvz0BUTLuAGXjXuFsFOXrQOKwGIVuEZjmPRHfJEQ2 RkV8OBUjVXZrOU4QIrYnSLBhVTg5YlQeXWMgDKEeqo 7CLVSyTUHfLXh5TrFqQMQvOBBhKYhfQLNuDBZ1UACyXABiHVVjXQ6WVxRiPIZrFVwpJbicXQZlFBBpgy 9EGDCcAWRfLXLkHZKwMWUdBWLjSCkuGSYwCDZjDvb9IBMeFQPzGL1RYoTcZDLdHeN4PplwAQWhSGPddc 5LZUXdEFCuLMn2RsErNDHxCWLdNNdoCBJxAHFzWBRw OPMcMCHlCE4RTkNeDPSvUxG0VvkbLQAmUUPntr1KEOMaRSAlLzRkMzBoSFJbDIRlEZkiXXWbHLYwAUp5 AQTeDXDzSA9MVuQvRQPfYxUuDnNsZCIyFKUisr6BjOSwtZcuhc6DJDmKHh3LvHbfONR6XQkuWp8xzNZg ArXuMDWJOu5LpmHiMBDyVJLFTWxlRGWlENNjTUZqRK VwZeIzDvQvSlIhUwBmGUUdATDhZZC0OHD8XiO9ADFeIoLzHIGhDZPsH6LzNvU2HYS9KKJdJWHgKfunBV Y+EB5tAKn+An5Iq4TggbQ2dhEjQVulEuB2LK8NUYHPJ1FVLi== ID Date Data Source [id number] 03/13/2021 02:24:18 PM EDT [facility] Name Value Range Interpretation Code Description Data Stephanie rce(s) Supporting Document(s) Care Plan [facility] IGMYDs0bLwBUQqEv50/BYQbfGGZas9NzWKjaZUm8NIwwZGNfX4NhDSR5aW7sNMC0WQeFDvAcYeXlISEb m [file] o+3liHPKPuvZWi3I3xw+microwave technician/HIvLLltdtVtdirlIpEr2+4g8ap59onvOLUMTWgTfSdWnIDfogVcZeD5x [file] Fruit Harvester+jZW1zlJy4GCtbYp3Uuv1pUkj0r7qT/QcE2cle5b [file] AgICAgICAgICAgICAgICAgICAgICAgICAgICAgICAg ICAgICAgICAgICAgICAgICAgICAgICAgICAgICAgICAgICAgICAgICAgICANCiAgICAgICAgICAgICAg ICAgICAgICAgICAgICAgICAgICAgICAgICAgICAgICAgICAgICAgICAgICAgICAgICAgICAgICAgICAg ICAgICAgICAgICAgICAgICAgICAgICAgICANCiAgIC AgICAgICAgICAgICAgICAgICAgICAgICAgICAgICAgICAgICAgICAgICAgICAgICAgICAgICAgICAgIC AgICAgICAgICAgICAgICAgICAgICAgICAgICAgICAgICAgICANCiAgICAgICAgICAgICAgICAgICAgIC AgICAgICAgICAgICAgICAgICAgICAgICAgICAgICAg ICAgICAgICAgICAgICAgICAgICAgICAgICAgICAgICAgICAgICAgICAgICAgICANCiAgICAgICAgICAg ICAgICAgICAgICAgICAgICAgICAgICAgICAgICAgICAgICAgICAgICAgICAgICAgICAgICAgICAgICAg ICAgICAgICAgICAgICAgICAgICAgICAgICAgICANCi AgICAgICAgICAgICAgICAgICAgICAgICAgICAgICAgICAgICAgICAgICAgICAgICAgICAgICAgICAgIC AgICAgICAgICAgICAgICAgICAgICAgICAgICAgICAgICAgICAgICANCiAgICAgICAgICAgICAgICAgIC AgICAgICAgICAgICAgICAgICAgICAgICAgICAgICAg ICAgICAgICAgICAgICAgICAgICAgICAgICAgICAgICAgICAgICAgICAgICAgICAgICANCiAgICAgICAg ICAgICAgICAgICAgICAgICAgICAgICAgICAgICAgICAgICAgICAgICAgICAgICAgICAgICAgICAgICAg ICAgICAgICAgICAgICAgICAgICAgICAgICAgICAgIC ANCiAgICAgICAgICAgICAgICAgICAgICAgICAgICAgICAgICAgICAgICAgICAgICAgICAgICAgICAgIC AgICAgICAgICAgICAgICAgICAgICAgICAgICAgICAgICAgICAgICAgICANCiAgICAgICAgICAgICAgIC AgICAgICAgICAgICAgICAgICAgICAgICAgICAgICAg ICAgICAgICAgICAgICAgICAgICAgICAgICAgICAgICAgICAgICAgICAgICAgICAgICAgICANCjw/eHBh N3fheZVjjfL4Z3bkWa2VZi2NWM3ws8ZaLSWaARwlhaOpBymSJdJwETFpEldJAvx7IPpzLP5RfJJkP2Zv N6CxDUrnNR1WHDWjSRKpiJSsKRMsJGRhLrP1YGFhDI wqSH4SkBIaKRumTDPrOKJxXpQvIVFtHU3KHBInI533rhDcTb4YJc5GGjLzII4bfg2WLbcrFDIlSkoTQj u9YEtnDP5LpKXlzWQeKDMxGJRMRrWyK7wza4JrUygsPPBQWDorAG8Oc2EihGOdLHe+Yc3QKR3nr5FaGG qbFCYhCV6txj8OORoPMbBiY4CjpQpuGUBczwFjYZxa opEowZTKj5NtWkAPI4U7EC7uWHHNVHC0CAyqUg2nHTBmBOYcIcZwYIEBOK7CKMHuNGLkmWJfBEBpSGDG RY0WZJboHAE2LvwnotPxbEFgKHgpWB4OSYWcmsLyJqwpPEYTFDp+Ps4UUP6bx5DhTUejOTRuYF9vev7R FQuGRqYxO2X3tSYzQ3M0QFdkJl9OCYCdGPFsWpVzYW VRBMpyHP2GES0jpeO7QC4UlJXgNGPsTLRtgMOmTNd4D55reBKpDZqcSK2CXQT+Dillon+Hw7VETTlEHKlSR QlFiXvESSNTvOmN8ZdX7HDi9FtU1BvCF58qEmvhqRxOAmlMQ1YDR0bAHYiPKRCLP0LkNBwoH3lkpBlUx TfOPBIGxZdI31yxNVnHQVgJRE4YKMbSp4JBERvN6Uz irIdqZspbnRrWKNnSLACMV6YEXcilqUrfCLhnZegVX49zKtcIO2DSp9VYsNnWJ8ykt8JqHSqIy5KMNPq OI3DBTQqJEYtODVhEVF6MQXfVqVyWNfzHQUlUPIdTFE3QEWaWNIqGP7ENmBpCSNcTwV7YMgyVZRcYEAz ai1ITUVfLZImKUS7PCWtAEKtMYVyTGpyVLBcMVLbDT A3OBRjRYGyAQ2OXwPxQHNtPFL2JSvoRNQnBNFjno0EDSIvXKSnExmaJeWjHFVdRJItIYvkHEQmIQE4OL yaEAZiKAFgXU4TKlOxTFEhFEAuCTFbVTZcVRGpmx2QUUBnZHOtFHL5JRDrDJVoZRXqCZmdNXCkKCP3YR C8GBQbVHTeZC6IItEhWOQcERC0MMNvXPZjFFUdae3N IAKxCABvTtVaOFAyRBTsUNHsPVzmULBpHPC4Zzn6QPCmNDWwFH5HLvHtUBDbFFK1VRFoUYQrUQSbsa5R URHkPQKsXOUnBKHpEAPcLJPnTMrzPJUtPKQ8JsF8RATcESGbZS6WCgApUKIxNKy3XQIcFLKvKOIlav6G XMOdRMAxURC9YNDnNKHuMLQbTUpmFRSnXUEtUvRmRD AoKXJjVS3QDpWoDRScZpToOYErQBTuVFIddt1WGXKeEHJjFPC3HPCaPZVcXXRnYLdcBQTaIUEaUZF5UD FcQQDhGF0VSsEpJPEoCbG9BIicSTCnYQLrcz5IYFItVJCoJeV1ONOlWZPlAUReZWfkYOTzHOSxHUE0KJ LtTZUkJU5WZeBkCMNeSyLiMVWwQVAoMUXxzp3TWODn OOSzRAw8XZFaHXDlYPKmVJulPSXoVNZ0PMR9DAWvHXOeHJ8MXgLgMLRvWxU8ANFySGAeDVZypi8RbQMv cBjkip1KOLuTBk9SzRmlCYMmZZbjRb5mvSGxLBJmXBLYIt8IejOkLCFpVPJGQAexFHGuJCDfMnAlDJbc LrVyV6I9RNc9VBXmOlt8KuMlUye0Y4K4PdL6DGWtBD A8SEQgUHOjQYHePSdbSGKtSeP7WmFoADFuGnM+BY5yKYv+Za9Ql1JpnhH8wwOfDAxrCIUdMQ9FIIBFK4 YNCg== ID Date Data Source [id number] 03/13/2021 02:22:43 PM EDT [facility] Name Value Range Interpretation Code Description Data Stephanie rce(s) Supporting Document(s) Nursing Note [facility] IMERCe2nKuOZJqTx55/IOXtoCNQus7GdMOcjHQk9NGilMPUvS1UwFUQ3hA6pXIB4VPtMLoWeZlOcQGCj lbm [file] ID Date Data Source [id number] 03/13/2021 11:15:10 AM EDT [facility] Name Value Range Interpretation Code Description Data Stephanie rce(s) Supporting Document(s) ED Triage Notes [facility] YGOZWi0tTcPCFmJe55/BWNvvPFVbm7NtAEqkLWf0EXixFLHiS9KsZCV1xH9mRYA6LBwGLgEkLtAoIPPj lbm [file] AgICAgICAgICAgICAgICAgICAgICAgICAgICAgICAgICAgICAgICAgICAgICAgICAgICAgICAgICAgIC GiHLJjCEDyTWAiZTNrTCNgVPAjDPLeGDLcCFCsNMPjGYKyPO8FDUAoTLXrUWQzGSPnDOEiNDApQAOaVJ AgICAgICAgICAgICAgICAgICAgICAgICAgICAgICAg DPLbUJHnRFHiHNAhMHXqLFYxYWKfUUUeUZGyIGGjOZQoRSZjTKCrFFMtCCAbQP2RXTGtHTOfHBWhQAWv ICAgICAgICAgICAgICAgICAgICAgICAgICAgICAgICAgICAgICAgICAgICAgICAgICAgICAgICAgICAg CNByNOZpQJBdZFTpYSLdPTMiUSGwKJIzHZMcCG2TWE AgICAgICAgICAgICAgICAgICAgICAgICAgICAgICAgICAgICAgICAgICAgICAgICAgICAgICAgICAgIC QvNKRvAXWhMGQlUZByPIQmYVNaBJJjLBEkTHHbWWRcFWImWJZmPV5OWMYkDFJvPXFnXAIiUDTaHHOfAX AgICAgICAgICAgICAgICAgICAgICAgICAgICAgICAg OXBbZVFbNRObMEFtHURjSAHwCILhKAFwRJFmPWFgKYGwTYSvHAMjZHAsDUGkXJVdGB2DQUVfSBUkHBVf ICAgICAgICAgICAgICAgICAgICAgICAgICAgICAgICAgICAgICAgICAgICAgICAgICAgICAgICAgICAg ICAgICAgICAgICAgICAgICAgICAgICAgICAgICAgIA 0KICAgICAgICAgICAgICAgICAgICAgICAgICAgICAgICAgICAgICAgICAgICAgICAgICAgICAgICAgIC UbEEWwTHGbXGLeNTOuBLUvKTCoEHGhFAGoZAOcDXTrPZZuPVMyEPNaQW1IFWNiAREfQLXrWSGrIGVjBQ AgICAgICAgICAgICAgICAgICAgICAgICAgICAgICAg OONhKVOxFVMmNOLoOHDyGWNvTHZlNCUdBAHsWNXlWAQxHZYaMDRzZARmOTSvDFIoPKExMZ2HCXZtXBXe ICAgICAgICAgICAgICAgICAgICAgICAgICAgICAgICAgICAgICAgICAgICAgICAgICAgICAgICAgICAg ICAgICAgICAgICAgICAgICAgICAgICAgICAgICAgIC PlNV7GJEErPHTaZHItOLPjBVWbZZYlPKLlZAJaPRPsQEGuPHRhBPTdBNGbJMEePKToIBHlLPChOILeTZ CbWWTdESMcTTWqDCIzZQViWBNfLLTtEBVeAVXqHJXuNNFgVCPkAAJhEDEkYI1XTQ13yWQri7Q6GNMnBE 0ndyc/Hh1OAVwmxbYhoAZxNP5JFbOmMD8hme9EQdUf PL4ske3CDByUUlPlO6S3gDOlUIKeBYXFUxObB54zAFphAz65OKjpGWPfMyEuCCf0Qk4TIaTpN3cgQJHg NtY8RAYdGmCdQZcqZA0Pg6NxvULaEMf+Vb3RET0ch4ZnRYbbUyNdAA9wrv5FGYgHSyEcQ6BoebW5RQVs NRJqEp5BOBElNPLukXHwGaZzVRSGMaHdU3RnnJ33NU ENCj4+HTalfgBdMqgHFyNeVAAwl3NnKOs3SV2PIBEaYHu0xPZsRGJdFCOqVOhvPN6epKSpURH3EUHrqJ WlNQTlojS6vD64rOAiJHRGBCF4TUmcNm8aWUBoRIOoUvFhSMSTMV9XZCGwCOUvyPSiOXWhEVKIQW9VFP zlTSC5CyftvjLerAWzOBmtSG4TVEJbhbVbKlLqOEBT DQo+Yg6SIJ3ib0NsLHlvJSCuKU6hlx6SLLfMWrLzX3W2nSKsC0O7EVblCu0CCJRxMTQlSwSvQYGNVLgd AT7VWY0jirQ4FG5IbRPfWZYgLQXntYWgWXa5B19zrLOgSUhkHN9JOCO+Dillon+Yy7FSMWwUISdBQSyGoNe GDMBLvYqS8LaR2VGw4SjZ8XlPW35xYcxkgHrSDjuCX 9MPA7yJYVoDWKYZO0DiLHleY9navLrIbNcDJSSFiTiV72qiDEmQQXwYDOsCMUuTz5MSGHsO2OpouWujT kpbrBqGEUgMTDYXT1RSDfqqfLznAMibAbuDP18rUibGG1JUq4JKpBqXT3kuw6HcINzSk7QOQIuND2ESH GiGMEyHFYbIKN2NPMbOfVzNCxvUJOgNCBqDCZ4DEZf FABbWD2GJbStNNKzIMh7DsicOYVaSEEqob5OUNHmASPhFIWeDQEsLOEwYSJoBAknIZZdLRUmJOV8ZLZf JHMrWV3FVcUvTXMwEJSuCPijMYJfLCQxmg6WLEVfXBFsSTYhBnXsLHQqZBMjKWpeBJRyNDJbNJFdTYKm WFYnYE7HNpVqYEFyFHS3JkRpXRDvBPZeig1AVBZlNM UjIzw3JtYdNADdAYGeHMhwNEPgMNFvPUO6DLGiWIArFB4JFyAxWQMxZHXzPKVdVRRsPHEbyp4UMTGwJP IsEXI0HHQzGPXdVDEvXEveFWAkGIV4FiF6PRBxPABnWT0AByIfJHOdSZA2CDRiPGPnTDTbdy7FIXKvIK AlZjV2DNDtDLBrWEOmBJgrPJVvOKN3Naz7PWLkCOPg IC6LXzYjKZJkTHn4CXDuTRSwHBQrwj8GSDMsJSNmZYM1GcLoCSCnPZXeFTucFYTpJYI6ChyuIWAsKIPk YN1QIaZvAJZyVAt5KKQiHWIbAIRtii7DLZWmDOFlZZF7USRaKVKdGSFxEWpxTCUqETBhPpf2ATNyFUQq LR1XTpQkSXWpKeB3KuCsTRVkBAFrhz9UFGYnTJHhDA fvHWJaQEHgFOYjLDf9ppRnoRYbRJz9YS0EQ9SrcvVeQpCBCx6Vp532EZX9LFVdAf4NL4dpNh1uBZPlAN YDTd0UGTv2EkbzFHEwBSNjFkZoKRDsL8L4JtO9PHO9VAFwUXR0EyF+HNm5WXG2BzCgAMPxGeSvNTGzAF ulVKm1BzdeUZJdRMM4Eq4vGGPGRv4+DHzdiAHafZqmKVHSSgZsACJ3DEdcXAWTKs1H ID Date Data Source [id number] 03/11/2021 08:16:00 PM EDT [facility] Name Value Range Interpretation Code Description Data Stephanie rce(s) Supporting Document(s) SARS coronavirus 2 RNA [Presence] in Res piratory specimen by CORDELL with probe detection NEGATIVE [facility] This lab was ordered by [facility] a nd reported by [facility]. ID Date Data Source [id number] 03/05/2021 09:30:00 PM EDT [facility] Name Value Range Interpretation Code Description Data Stephanie rce(s) Supporting Document(s) Respiratory specimen severe acute respir atory syndrome coronavirus 2 (SARS-CoV-2) RNA Negative (qualifier value) [facility] This lab was ordered by [facility] and reported by . ID Date Data Source [id number] 03/05/2021 10:26:[address] [facility] First test? UNKNOWNEmployed in healthca re? UNKNOWNSymptomatic per [facility]? UNKNOWNIf yes date of onset? 03/05/21Hospitalized? UNKNOWNICU? UNKNOWNResident in congregated care? ex residential, [facility] YES? UNKNOWN Name Value Range Interpretation Code Description Data Stephanie rce(s) Supporting Document(s) SARS-CoV-2 RNA Negative Normal (applies to non-numeric r esults) [facility] Negative results should be treated as pr esumptive and, if inconsistent with clinical signs and symptoms or necessary for patient management, should be tested with different authorized or cleared molecular tests. Negative results do not preclude SARS-CoV-2 infection and should not be used as the sole basis for patient management decisions. Negative results should be considered in the context of a patient???s recent exposures, history and the presence of clinical signs and symptoms consistent with COVID-19. This test has not been FDA cleared or approved; this test has been authorized by FDA under an Emergency Use Authorization for use by laboratories certified under the Clinical Laboratory Improvement Amendments of 1988 (CLIA), 42 U.S.C. ???263a, to perform moderate complexity/high complexity tests and at the Point of Care (POC), i.e., in patient care settings operating under a CLIA Certificate of Waiver, Certificate of Compliance, or Certificate of Accreditation. Factsheets for healthcare providers: https://www.fda.gov/media/849723/download Factsheets for patients: https://www.fda.gov/media/185454/download The ID NOW Instrument is a rapid molecular in vitro diagnostic test utilizing an isothermal nucleic acid amplification technology intended for the qualitative detection of nucleic acid from the SARS-CoV-2 viral RNA. THIS IS A STATE REPORTABLE COMMUNICABLE DISEASE. Manual entry verified by Aysha Andrade 03/05/212224 ID Date Data Source [id number] 03/05/2021 10:15:[address] [facility] Name Value Range Interpretation Code Description Data Stephanie rce(s) Supporting Document(s) Troponin I 0.000-0.056 Normal (applies to non-numeric resu lts) [facility] ID Date Data Source [id number] 03/05/2021 10:15:[address] [facility] Name Value Range Interpretation Code Description Data Stephanie rce(s) Supporting Document(s) Acetaminophen 10.0-30.0 Below low normal [facility] ID Date Data Source [id number] 03/05/2021 10:15:[address] [facility] Name Value Range Interpretation Code Description Data Stephanie rce(s) Supporting Document(s) Magnesium 1.8-2.4 Normal (applies to non-numeric resul ts) [facility] ID Date Data Source [id number] 03/05/2021 10:15:[address] [facility] Name Value Range Interpretation Code Description Data Stephanie rce(s) Supporting Document(s) Sodium 142 mmol/L 136-145 Normal (applies to non-numeric resul ts) [facility] Potassium 3.5-5.1 Normal (applies to non-numeric resul ts) [facility] Chloride 107 mmol/L 98-107 Normal (applies to non-numeric resul ts) [facility] Carbon Dioxide CO2 21-32 Normal (applies to non-numer ic results) [facility] Anion Gap 5.0-16.0 Normal (applies to non-numeric resul ts) [facility] BUN 17 mg/dL 7-18 Normal (applies to non-numeric results) [facility] Creatinine,Serum 0.7-1.2 Normal (applies to non-numeric results) [facility] GFR >60 Normal (applies to non-numeric results) [facility] Glucose Level 93 mg/dL 60-99 Normal (applies to non-numeric re sults) [facility] Reference range is only applicable when patient is fasting Note the following drug interference: Sulfasalazine Sulfapyridine Can see falsely depressed Can see falsely elevated result with up to 17% results with up to 11% decrease in measurement increase in measurement Recommend patients be collected for this test prior to administration of either drug. Calcium 8.5-10.1 Normal (applies to non-numeric resul ts) [facility] Bilirubin,Total 0.1-1.9 Normal (applies to non-numeric results) [facility] SGOT(AST) 21 U/L 15-37 Normal (applies to non-numeric resul ts) [facility] Note the following drug interference: Sulfasalazine Sulfapyridine Can see falsely depressed Can see falsely elevated result with up to 10% results with up to 10% decrease in measurement increase in measurement Recommend patients be collected for this test prior to administration of either drug. SGPT(ALT) 43 U/L 12-78 Normal (applies to non-numeric resul ts) [facility] Note the following drug interference: Sulfasalazine Sulfapyridine Can see falsely depressed Can see falsely elevated result with up to 29% results with up to 10% decrease in measurement increase in measurement Recommend patients be collected for this test prior to administration of either drug. Alkaline Phosphatase 113 U/L 38-126 Normal (applies to non-num deena results) [facility] can increase Alkaline Phosp le vels up to 2 times the normal adult value. Normal values for children and adolescents are 2 to 3 times the normal adult value. Total Protein 6.0-8.2 Normal (applies to non-numeric re sults) [facility] Albumin Level 3.4-5.0 Normal (applies to non-numeric re sults) [facility] ID Date Data Source [id number] 03/05/2021 10:15:00 PM [facility] Name Value Range Interpretation Code Description Data Stephanie rce(s) Supporting Document(s) Salicylate 2.8-20.0 Below low normal [facility] ID Date Data Source [id number] 03/05/2021 10:14:[address] [facility] Name Value Range Interpretation Code Description Data Stephanie rce(s) Supporting Document(s) Ethanol Less than 10.0 Normal (applies to non-numeric r esults) [facility] ID Date Data Source [id number] 03/05/2021 09:36:00 PM [facility] Name Value Range Interpretation Code Description Data Stephanie rce(s) Supporting Document(s) White Blood Count 3.5-10.5 Above high normal [facility] Red Blood Count 3.90-5.00 Normal (applies to non-numeric results) [facility] Hemoglobin 12.0-15.5 Normal (applies to non-numeric resul ts) [facility] Hematocrit 34.9-44.5 Normal (applies to non-numeric resul ts) [facility] Mean Corpuscular Volume 81.2-95.1 Normal (applies to non- numeric results) [facility] Mean Corpuscular Hgb 25.6-32.2 Normal (applies to non-num deena results) [facility] Mean Corpuscular Hgb Conc 32.0-36.0 Normal (applies to no n-numeric results) [facility] Red Cell Distribution Width 11.9-15.5 Normal (appli es to non-numeric results) [facility] Platelet Count 258 x10 3/uL 150-450 Normal (applies to non-numeric results) [facility] Mean Platelet Volume 9.4-12.4 Normal (applies to non-num deena results) [facility] Neutrophils% (Auto) 31.0-71.0 Normal (applies to non-nume frank results) [facility] Lymphocytes% (Auto) 20.0-55.0 Normal (applies to non-nume frank results) [facility] Monocytes% (Auto) 4.0-12.0 Normal (applies to non-numeri c results) [facility] Eosinophils% (Auto) 1.0-8.0 Below low normal [facility] Basophils% (Auto) 0.0-2.0 Normal (applies to non-numeri c results) [facility] Immature Granulocytes% (Auto) 0.0-2.0 Normal (alexander lies to non-numeric results) [facility] Neutrophils# (Auto) 1.50-6.20 Above high normal [facility] Lymphocytes# (Auto) 1.20-4.00 Normal (applies to non-nume frank results) [facility] Monocytes# (Auto) 0.00-0.90 Normal (applies to non-numeri c results) [facility] Eosinophils# (Auto) 0.00-0.50 Normal (applies to non-nume frank results) [facility] Basophils# (Auto) 0.00-0.20 Normal (applies to non-numeri c results) [facility] Immature Granulocytes# (Auto) 0.00-7.00 No rmal (applies to non-numeric results) [facility] ID Date Data Source [id number] 03/05/2021 10:00:00 PM [facility] Collected By: Nurse Initials: ayleen Barry me Collected: 1999 Collected By: Nurse Initials: ayleen Barry me Collected: 1999 Collected By: Nurse Initials: ayleen Barry me Collected: 1999 Name Value Range Interpretation Code Description Data [facility] rce(s) Supporting Document(s) RBC,Urine None Seen [facility] WBC,Urine None Seen [facility] Squamous Cells,Urine None Seen [facility] Amorphous Sediment,Urine None Seen [facility] Bacteria,Urine None [facility] ID Date Data Source [id number] 03/05/2021 10:00:00 PM [facility] Collected By: Nurse Initials: ayleen Barry me Collected: 1999 Collected By: Nurse Initials: ayleen Barry me Collected: 1999 Collected By: Nurse Initials: ayleen Barry me Collected: 1999 Name Value Range Interpretation Code Description Data Stephanie rce(s) Supporting Document(s) Color,Urine Colorl-Dk Y Normal (applies to non-numeric res ults) [facility] Clarity,Urine Clear Normal (applies to non-numeric re sults) [facility] Specific [place],Urine 1.005-1.030 [facility] pH,Urine 5.0-8.0 Normal (applies to non-numeric resul ts) [facility] Protein,Urine Negative [facility] Glucose,Urine Negative Normal (applies to non-numeric re sults) [facility] Ketones,Urine Negative Normal (applies to non-numeric re sults) [facility] Blood,Urine Negative Normal (applies to non-numeric resu lts) [facility] Bilirubin,Urine Negative Normal (applies to non-numeric results) [facility] Urobilinogen,Urine 0.2-1.0 Normal (applies to non-numer ic results) [facility] Leukocyte Esterase,Urine Negative Normal (applies to non -numeric results) [facility] Nitrite,Urine Negative Normal (applies to non-numeric re sults) [facility] ID Date Data Source [id number] 03/05/2021 10:00:[address] [facility] Collected By: Nurse Initials: ayleen Barry me Collected: 1999 Collected By: Nurse Initials: ayleen Barry me Collected: 1999 Collected By: Nurse Initials: ayleen Barry me Collected: 1999 Name Value Range Interpretation Code Description Data Stephanie rce(s) Supporting Document(s) HCG,Ur Negative Normal (applies to non-numeric results) [facility] ID Date Data Source [id number] 03/05/2021 08:25:[address] [facility] Name Value Range Interpretation Code Description Data Stephanie rce(s) Supporting Document(s) UDS Benzodiazepines Screen Negative Normal (applies to n on-numeric results) [facility] UDS Cocaine Screen Negative Normal (applies to non-numer ic results) [facility] UDS Ampetamine Screen Negative Normal (applies to non-nu meric results) [facility] UDS Cannabinoids Screen Negative Normal (applies to non- numeric results) [facility] UDS Opiates Screen Negative Normal (applies to non-numer ic results) [facility] UDS Barbiturates Screen Negative Normal (applies to non- numeric results) [facility] Threshold Levels Benzodiazepine 200 ng/mL Cocaine 300 ng/mL Amphetamines 1000 ng/mL Cannabinoids (THC) 50 ng/mL Opiates 300 ng/mL Barbiturates 200 ng/mL All positive findings are presumptive and unconfirmed. Confirmation of positive results are performed only at request of provider. Unconfirmed results must not be used for non-medical purposes (i.e. preemployment and legal purposes) ID Date Data Source [id number] 03/04/2021 03:33:00 PM EDT [facility] Exam Number: [id number] Reported By: - JEREMIAH PEOPLES MD Signed By: JEREMIAH PEOPLES MD Name Value Range Interpretation Code Description Data Stephanie rce(s) Supporting Document(s) ID Date Data Source [id number] 03/03/2021 08:53:00 PM [facility] Name Value Range Interpretation Code Description Data Stephanie rce(s) Supporting Document(s) XQUV-GlM-1-result [employer] XPERT XPRESS SARS-CO V-2 REALTIME PCR ASSAY HAS EMERGENCY USE AUTHORIZATION (EUA) FROM THE FDA. [facility] This lab was ordered by [facility] and reported by [facility]. ID Date Data Source [id number] 03/03/2021 02:50:00 AM EDT [facility] Name Value Range Interpretation Code Description Data Stephanie rce(s) Supporting Document(s) Respiratory specimen severe acute respir atory syndrome coronavirus 2 (SARS-CoV-2) RNA Negative (qualifier value) [facility] This lab was ordered by [facility] and reported by . ID Date Data Source [id number] 03/03/2021 03:11:[address] [facility] First test? UNKNOWNEmployed in healthca re? UNKNOWNSymptomatic per CDC? UNKNOWNHospitalized? UNKNOWNICU? UNKNOWNResident in congregated care? ex residential, [facility] UNKNOWN? UNKNOWN Name Value Range Interpretation Code Description Data Stephanie rce(s) Supporting Document(s) SARS-CoV-2 RNA Negative Normal (applies to non-numeric r esults) [facility] Negative results should be treated as pr esumptive and, if inconsistent with clinical signs and symptoms or necessary for patient management, should be tested with different authorized or cleared molecular tests. Negative results do not preclude SARS-CoV-2 infection and should not be used as the sole basis for patient management decisions. Negative results should be considered in the context of a patient???s recent exposures, history and the presence of clinical signs and symptoms consistent with COVID-19. This test has not been FDA cleared or approved; this test has been authorized by FDA under an Emergency Use Authorization for use by laboratories certified under the Clinical Laboratory Improvement Amendments of 1988 (CLIA), 42 U.S.C. ???263a, to perform moderate complexity/high complexity tests and at the Point of Care (POC), i.e., in patient care settings operating under a CLIA Certificate of Waiver, Certificate of Compliance, or Certificate of Accreditation. Factsheets for healthcare providers: https://www.fda.gov/media/338107/download Factsheets for patients: https://www.fda.gov/media/546720/download The ID NOW Instrument is a rapid molecular in vitro diagnostic test utilizing an isothermal nucleic acid amplification technology intended for the qualitative detection of nucleic acid from the SARS-CoV-2 viral RNA. THIS IS A STATE REPORTABLE COMMUNICABLE DISEASE. Manual entry verified by Marion Thompson 03/03/21310 ID Date Data Source [id number] 03/03/2021 02:26:[address] [facility] Name Value Range Interpretation Code Description Data Stephanie rce(s) Supporting Document(s) UDS Benzodiazepines Screen Negative Normal (applies to n on-numeric results) [facility] UDS Cocaine Screen Negative Normal (applies to non-numer ic results) [facility] UDS Ampetamine Screen Negative Normal (applies to non-nu meric results) [facility] UDS Cannabinoids Screen Negative Normal (applies to non- numeric results) [facility] UDS Opiates Screen Negative Normal (applies to non-numer ic results) [facility] UDS Barbiturates Screen Negative Normal (applies to non- numeric results) [facility] Threshold Levels Benzodiazepine 200 ng/mL Cocaine 300 ng/mL Amphetamines 1000 ng/mL Cannabinoids (THC) 50 ng/mL Opiates 300 ng/mL Barbiturates 200 ng/mL All positive findings are presumptive and unconfirmed. Confirmation of positive results are performed only at request of provider. Unconfirmed results must not be used for non-medical purposes (i.e. preemployment and legal purposes) ID Date Data Source [id number] 03/03/2021 02:21:[address] [facility] Collected By: Nurse Initials: [place] Time Collected: 157 Collected By: Nurse Initials: [place] Time Collected: 157 Name Value Range Interpretation Code Description Data Stephanie rce(s) Supporting Document(s) Color,Urine Colorl-Dk Y Normal (applies to non-numeric res ults) [facility] Clarity,Urine Clear Normal (applies to non-numeric re sults) [facility] Specific [place],Urine 1.005-1.030 [facility] pH,Urine 5.0-8.0 Normal (applies to non-numeric resul ts) [facility] Protein,Urine Negative Normal (applies to non-numeric re sults) [facility] Glucose,Urine Negative Normal (applies to non-numeric re sults) [facility] Ketones,Urine Negative Normal (applies to non-numeric re sults) [facility] Blood,Urine Negative Normal (applies to non-numeric resu lts) [facility] Bilirubin,Urine Negative Normal (applies to non-numeric results) [facility] Urobilinogen,Urine 0.2-1.0 Normal (applies to non-numer ic results) [facility] Leukocyte Esterase,Urine Negative Normal (applies to non -numeric results) [facility] Nitrite,Urine Negative Normal (applies to non-numeric re sults) [facility] ID Date Data Source [id number] 03/03/2021 02:21:[address] [facility] Collected By: Nurse Initials: NH Time Collected: 157 Collected By: Nurse Initials: NH Time Collected: 157 Name Value Range Interpretation Code Description Data Stephanie rce(s) Supporting Document(s) HCG,Ur Negative Normal (applies to non-numeric results) [facility] ID Date Data Source [id number] 03/03[facility]21 [facility] Name Value Range Interpretation Code Description Data Stephanie rce(s) Supporting Document(s) D-Dimer,Quant 0.19-0.50 Normal (applies to non-numeric re sults) [facility] The negative predictive value for DVT or PE is at 98% when the result is below the cut off value of 0.50 mg/L FEU. Increases in D-Dimer concentration observed with thromboembolic events can be variable due to localization, size, and age of thrombus. Therefore, a thromboembolic event cannot be diagnosed with certainty on the basis of the reference range. D-Dimers may also be elevated for a variety of disorders including: advanced age, , coronary disease, cancer, liver disease, infection, inflammation, hematoma, DIC, trauma, post surgery, diabetes, thrombolytic therapy, stress, and general hospitialization. D-Dimer levels may be decreased in patients on anticoagulant therapy. ID Date Data Source [id number] 03/03/2021 01:55:[address] [facility] Name Value Range Interpretation Code Description Data Stephanie rce(s) Supporting Document(s) Ethanol Less than 10.0 Normal (applies to non-numeric r esults) [facility] ID Date Data Source [id number] 03/03/2021 01:55:00 AM [facility] Name Value Range Interpretation Code Description Data Stephanie rce(s) Supporting Document(s) Acetaminophen 10.0-30.0 Below low normal [facility] ID Date Data Source [id number] 03/03/2021 01:55:00 AM [facility] Name Value Range Interpretation Code Description Data Stephanie rce(s) Supporting Document(s) Sodium 143 mmol/L 136-145 Normal (applies to non-numeric resul ts) [facility] Potassium 3.5-5.1 Normal (applies to non-numeric resul ts) [facility] Chloride 107 mmol/L 98-107 Normal (applies to non-numeric resul ts) [facility] Carbon Dioxide CO2 21-32 Normal (applies to non-numer ic results) [facility] Anion Gap 5.0-16.0 Normal (applies to non-numeric resul ts) [facility] BUN 20 mg/dL 7-18 Above high normal [facility] Creatinine,Serum 0.7-1.2 Normal (applies to non-numeric results) [facility] GFR >60 Normal (applies to non-numeric results) [facility] Glucose Level 101 mg/dL 60-99 Above high normal [facility] Reference range is only applicable when patient is fasting Note the following drug interference: Sulfasalazine Sulfapyridine Can see falsely depressed Can see falsely elevated result with up to 17% results with up to 11% decrease in measurement increase in measurement Recommend patients be collected for this test prior to administration of either drug. Calcium 8.5-10.1 Normal (applies to non-numeric resul ts) [facility] Bilirubin,Total 0.1-1.9 Normal (applies to non-numeric results) [facility] SGOT(AST) 22 U/L 15-37 Normal (applies to non-numeric resul ts) [facility] Note the following drug interference: Sulfasalazine Sulfapyridine Can see falsely depressed Can see falsely elevated result with up to 10% results with up to 10% decrease in measurement increase in measurement Recommend patients be collected for this test prior to administration of either drug. SGPT(ALT) 44 U/L 12-78 Normal (applies to non-numeric resul ts) [facility] Note the following drug interference: Sulfasalazine Sulfapyridine Can see falsely depressed Can see falsely elevated result with up to 29% results with up to 10% decrease in measurement increase in measurement Recommend patients be collected for this test prior to administration of either drug. Alkaline Phosphatase 116 U/L 38-126 Normal (applies to non-num deena results) [facility] can increase Alkaline Phosp le vels up to 2 times the normal adult value. Normal values for children and adolescents are 2 to 3 times the normal adult value. Total Protein 6.0-8.2 Normal (applies to non-numeric re sults) [facility] Albumin Level 3.4-5.0 Normal (applies to non-numeric re sults) [facility] ID Date Data Source [id number] 03/03/2021 01:55:[address] [facility] Name Value Range Interpretation Code Description Data Stephanie rce(s) Supporting Document(s) Salicylate 2.8-20.0 Below low normal [facility] ID Date Data Source [id number] 03/03/2021 01:55:[address] [facility] Name Value Range Interpretation Code Description Data Stephanie rce(s) Supporting Document(s) Magnesium 1.8-2.4 Normal (applies to non-numeric resul ts) [facility] ID Date Data Source [id number] 03/03/2021 01:55:[address] [facility] Name Value Range Interpretation Code Description Data Stephanie rce(s) Supporting Document(s) Troponin I 0.000-0.056 Normal (applies to non-numeric resu lts) [facility] ID Date Data Source [id number] 03/03/2021 01:19:[address] [facility] Name Value Range Interpretation Code Description Data Stephanie rce(s) Supporting Document(s) White Blood Count 3.5-10.5 Above high normal [facility] Red Blood Count 3.90-5.00 Normal (applies to non-numeric results) [facility] Hemoglobin 12.0-15.5 Normal (applies to non-numeric resul ts) [facility] Hematocrit 34.9-44.5 Normal (applies to non-numeric resul ts) [facility] Mean Corpuscular Volume 81.2-95.1 Normal (applies to non- numeric results) [facility] Mean Corpuscular Hgb 25.6-32.2 Normal (applies to non-num deena results) [facility] Mean Corpuscular Hgb Conc 32.0-36.0 Normal (applies to no n-numeric results) [facility] Red Cell Distribution Width 11.9-15.5 Normal (appli es to non-numeric results) [facility] Platelet Count 274 x10 3/uL 150-450 Normal (applies to non-numeric results) [facility] Mean Platelet Volume 9.4-12.4 Below low normal [facility] Neutrophils% (Auto) 31.0-71.0 Normal (applies to non-nume frank results) [facility] Lymphocytes% (Auto) 20.0-55.0 Normal (applies to non-nume frank results) [facility] Monocytes% (Auto) 4.0-12.0 Normal (applies to non-numeri c results) [facility] Eosinophils% (Auto) 1.0-8.0 Below low normal [facility] Basophils% (Auto) 0.0-2.0 Normal (applies to non-numeri c results) [facility] Immature Granulocytes% (Auto) 0.0-2.0 Normal (alexander lies to non-numeric results) [facility] Neutrophils# (Auto) 1.50-6.20 Above high normal [facility] Lymphocytes# (Auto) 1.20-4.00 Normal (applies to non-nume frank results) [facility] Monocytes# (Auto) 0.00-0.90 Normal (applies to non-numeri c results) [facility] Eosinophils# (Auto) 0.00-0.50 Normal (applies to non-nume frank results) [facility] Basophils# (Auto) 0.00-0.20 Normal (applies to non-numeri c results) [facility] Immature Granulocytes# (Auto) 0.00-7.00 No rmal (applies to non-numeric results) [facility] ID Date Data Source [id number] 03/02/2021 11:08:00 AM EDT [address] CONSULTPATIENT NAME: YARELI HATCH MR#: [id number] PHYSICIAN:AUTHOR: Colleen SMITHBogdan DATE: #: ERPATIENT : 00HistoryHistory of Presenting IllnessPatient is 20-year-old female, currently single, lives at [facility], pastpsych history of borderline personality disorder, depression disorder andschizoaffective disorderChief complaint: Patient presented with suicidal ideationHistory of present illness: Patient was seen along with nurse practitionerduring this course of assessment. Patient was expressing that she came intohospital because [facility] people they do not know how to do their job and to calmher down. She was somewhat upset and that is the reason she said that she wassuicidal but she is no longer suicidal. And she wanted to be discharged backto [facility]. However upon asking how she is going to deal with the situationoutside where patient stated that she feels comfortable talking and having ameeting with [facility] staff tomorrow and try to solve the situation as well. Shestated that she was not suicidal, she wants to go back to [facility] and get some rest, she was also stating that she will do her coping skills try to use skillssuch as walking, coloring. Patient denied having any medical issues, she wasalso expressed that she knows that she was just discharged from the hospitaland she would only come back into the hospital if needed. She also stated thatshe does not feel inpatient mental health unit admission would be helpful toher and she does not feel comfortable going to any other place as well. Shewas also denying having any homicidal ideations or any auditory visualhallucinations. She was also behaving in the emergency room as well.Mental status examination: Patient was alert, oriented with time place person,cooperative, somewhat anxious, her speech remains soft, mood is okay, affectwas constricted, thought process was mostly organized, thought content deniedhaving any suicidal, homicidal ideations, denied having any auditory visualhallucinations, denied delusions, attention concentration fair, insight andjudgment appeared fair.Diagnosis: Borderline personality disorder, adjustment disorder, depressiondisorder, schizoaffective disorderPlan: After evaluating patient back to back in emergency room, this timepatient expressed that she was here because she did not go along with [facility] staffand that is the reason she came back into hospital. However she is statingthat she does not feel suicidal, she denied having any plan and she stated thatshe is said certain things in order to be admitted into the hospital but she nolonger feel that she needs to stay into the inpatient mental health unit atthis point. Patient was also talking about her coping skills, open to write 5goals 5 coping skills as well as stating that she is currently activelyinvolved in her care with talking to [facility] staff tomorrow for working out certainsituation among them as well. We no longer had criteria for inpatient mentalhealth hospitalization at this point and patient does not feel comfortablestaying voluntarily into inpatient mental hea patient not th unit. Patient hashistory of impulsive behavior in the past however patient is not posing anythreat to harm herself or others. To take her medication outside and willingto see therapist and psychiatrist outside.Past Psych/Medical HistoryAllergiesCoded Allergies:haloperidol (From HALDOL) (06/15/20)risperidone (08/04/19)DATE SIGNED: 03/02/21 Electronically SignedTIME SIGNED: 1113 BOGDAN ALMAGUER MD Name Value Range Interpretation Code Description Data Stephanie rce(s) Supporting Document(s) ID Date Data Source [id number] 03/02/2021 04:06:00 AM EDT [facility] Name Value Range Interpretation Code Description Data Stephanie rce(s) Supporting Document(s) SALICYLATE < 1.7 mg/dL 0.0-20.0 [facility] ID Date Data Source [id number] 03/02/2021 04:06:00 AM EDT [facility] Name Value Range Interpretation Code Description Data Stephanie rce(s) Supporting Document(s) ACETAMINOPHEN < 2.0 ug/mL 0-30 [facility] Data Source [id number] 03/02/2021 04:06:00 AM EDT [facility] Name Value Range Interpretation Code Description Data Stephanie rce(s) Supporting Document(s) ETOH NONE DETECTED N [facility] NONE DETECTED ID Date Data Source [id number] 03/02/2021 04:06:00 AM EDT [facility] Name Value Range Interpretation Code Description Data Stephanie rce(s) Supporting Document(s) GLU 120 mg/dL 70-110 [facility] Patients taking Sulfasalazine may have f alsely depressedGlucose levels. Patients taking Sulfapyridine may havefalsely elevated Glucose levels. Patients should be drawnfor Glucose before the initial administration of eitherdrug. BUN 16 mg/dL 7-23 [facility] CRE 0.685 mg/dL 0.500-1.300 [facility] GFR > 60 mL/min [facility] CHLORIDE 111 mmol/L 99-110 [facility] NA 141 mmol/L 136-147 [facility] POTASSIUM 3.6 mmol/L 3.5-5.1 [facility] TCO2 18 mmol/L 20-33 [facility] ANION GAP 15.6 10.0-20.0 [facility] CA 8.5 mg/dL 8.3-10.7 [facility] ALKALINE PHOS 118 U/L 45-117 [facility] TP 7.5 g/dL 6.0-7.8 [facility] ALB 3.7 g/dL 3.5-5.0 [facility] ESRD Dialysis patient Albumin reference range: 2.9-4.4 g/dL GL 3.8 g/dL 2.3-3.5 [facility] A/G 1.0 1.0-2.5 [facility] T. BILIRUBIN 0.2 mg/dL 0.1-1.1 [facility] [place] Total Bilirubin is n ot recommended forpatients undergoing treatment with eltrombopag (Promacta)due to the potential for falsely elevated results. ALTI 43 U/L 6-54 [facility] Patients taking Sulfasalazine and/or Sul fapyridine may havefalsely depressed ALT levels. Patients should be drawn forALT before the initial administration of either drug. AST 21 U/L 6-38 [facility] Patients taking Sulfasalazine and/or Sul fapyridine may havefalsely depressed AST levels. Patients should be drawn forAST before the initial administration of either drug. ID Date Data Source [id number] 03/02/2021 03:12:00 AM EDT [facility] Name Value Range Interpretation Code Description Data Stephanie rce(s) Supporting Document(s) WBC 9.90 x10E3/uL 4.0-10.5 [facility] RBC 4.15 x10E6/uL 4.20-5.40 [facility] Hemoglobin 12.4 g/dL 12.0-16.0 [facility] Hematocrit 37.0 % 37.0-47.0 [facility] MCV 89.2 fL 81.0-99.0 [facility] MCH 29.9 pg 27.0-31.0 [facility] MCHC 33.5 g/dL 32.7-35.6 [facility] RDW 12.4 % 11.5-14.0 [facility] Platelet count 243 x10E3/uL 150-450 [facility] ital MPV 9.9 fl 6.9-9.5 [facility] Neutrophils 61.6 % 34-64 [facility] Lymphocytes 29.1 % 25-45 [facility] Monocytes 7.2 % 1.7-10.6 [facility] Eosinophils 1.3 % 0.4-7.0 [facility] Basophils 0.3 % 0.1-2.0 [facility] Imm. Gran. 0.5 % 0.1-2.0 [facility] Abs. Neutro. 6.10 x10E3/uL 1.2-7.6 [facility] Abs. Lymph. 2.88 x10E3/uL 1.0-3.5 [facility] al Abs. Bryan. 0.71 x10E3/uL 0.1-1.0 [facility] l Abs. Eosin. 0.13 x10E3/uL 0.1-0.7 [facility] al Abs. Baso. 0.03 x10E3/uL 0.0-0.1 N [facility] l Abs. Imm. Gran. 0.05 x10E3/uL 0.0-0.1 [facility] ANRBC% 0 % 0 [facility] ID Date Data Source [id number] 03/02/2021 03:28:00 AM EDT [facility] Name Value Range Interpretation Code Description Data Stephanie rce(s) Supporting Document(s) PCP VISTA NEG NEGATIVE [facility] MINIMUM LEVEL OF DETECTION IS 25 ng/ml BENZODIAZEPINES NEG NEGATIVE [facility] al MINIMUM LEVEL OF DETECTION IS 200 ng/ml COCAINE VISTA NEG NEGATIVE [facility] MINIMUM LEVEL OF DETECTION IS 300 ng/ml AMPHETAMINES NEG NEGATIVE [facility] al MINIMUM LEVEL OF DETECTION IS 1000 ng/ml BARBITURATES NEG NEGATIVE [facility] al CUTOFF CONCENTRATION IS 200 ng/ml CANNABINOIDS NEG NEGATIVE [facility] al CUTOFF CONCENTRATION IS 50 ng/ml METHADONE VISTA NEG NEGATIVE [facility] al MINIMUM LEVEL OF DETECTION IS 300 ng/ml OPIATE VISTA NEG NEGATIVE [facility] MINIMUM DETECTION LEVEL IS 300 ng/ml ID Date Data Source [id number] 03/02/2021 03:15:00 AM EDT [facility] Name Value Range Interpretation Code Description Data Stephanie rce(s) Supporting Document(s) HCG QUAL URINE [facility] ID Date Data Source [id number] 03/02/2021 03:15:00 AM EDT [facility] Name Value Range Interpretation Code Description Data Stephanie rce(s) Supporting Document(s) URINE COLOR Yellow [facility] UAPR Cloudy [facility] UGLU Negative NEGATIVE [facility] URINE BILIRUBIN [facility] UKET Trace NEGATIVE [facility] USG 1.028 1.010-1.025 [facility] UBLO Negative NEGATIVE [facility] UpH 5.0 5.0-8.0 [facility] UPRO Negative Negative [facility] UUB 1.0 mg/dL 0.2-1.0 [facility] UNIT Negative Negative [facility] ULEU Negative Negative [facility] ID Date Data Source [id number] 03/02/2021 11:27:00 AM EDT [facility] Physician DocumentationClaxSaud Hinkle edical CenterName: Yareli DuvallAge: 20 yrsSex: FemaleDOB: 2000MRN: [id number] Date: 03/02/2021Time: 02:30Account#: [id number] MD: NONE, - Per PatientED Physician Nils ArguetaDiszach Summary:03/02/21 11:12Discharge OrderedLocation: Home Self Care afProblem: an ongoing problem afSymptoms: are unchanged afCondition: Stable afDiagnosis- Adjustment disorder, unspecified afFollowup: af- With: Private Physician- When: 1 week- Reason: Recheck today's complaintsDischarge Instructions:- ADJUSTMENT DISORDER af- Discharge Summary Sheet [id number]:- Medication Reconciliation af- Medication Reconciliation Form - 2nd Copy afHPI:02/2202:50 This 20 yrs old White Female presents to ER via Police with [id number] of Psych Problem.02:50 Associated signs and symptoms: Pertinent negatives: abdominal pain, xe5qrwas pain, fever, headache, nausea, shortness of breath, vomiting.Patient returns to the ER for mental he alth evaluation. Patient waslast in the ER for mental health yesterday and was discharged.Patient planes of PTSD tonight. Reports suicidal ideation but deniesany specific plan. She has attempted suicide in the past by overdose.She is feeling depressed and anxious. Denies any homicidal ideationor hallucination. She reports that she has been taking hermedications. She denies any other problems or any other complaints..ARNP:02:35 LMP N/A - Irregular menses [id number]:- Allergies: Haldol; Risperdal;- Home Meds:1. ibuprofen 400 mg Oral tab 1 tab prn for headaches2. Latuda 80 mg oral tab 1 tab once daily3. loratadine 10 mg oral TbDi once daily4. lurasidone 80 mg oral tab 20:005. montelukast 10 mg oral tab 1 tab once daily6. pravastatin 20 mg oral tab 1 tab nightly7. prazosin 1 mg Oral cap nightly8. propranolol 10 mg Oral tab 1 tab twice per day9. sertraline 150mg oral tab once daily10. topiramate 75mg oral tab once daily11. trazodone 50 mg Oral tab 1 tab prn insomnia- PMHx: ADHD; ANXIETY; BIPOLAR DISORDER; Depressive disorder; PsychHx; ptsd;- Immunization history: Flu vaccine is not up to date.- Social history: Smoking status: Patient uses tobacco products,current every day smoker. ETOH status Denies use of ETOH.- Advance Directives:: None.ROS:02:51 Constitutional: Negative for fever. Eyes: Negative for acute changes. th4ENT: Negative for nasal discharge, rhinorrhea, sinus congestion.Neck: Negative for acute changes. Cardiovascular: Negative for chestpain. Respiratory: Negative for shortness of breath. Abdomen/GI:Negative for abdominal pain, nausea, vomiting, diarrhea. Back:Negative for acute changes. : Negative for acute changes.MS/extremity: Negative for acute changes. Skin: Negative for acutechanges. Neuro: Negative for headache, weakness. Psych: Positive foranxiety, depression, suicidal ideation, Negative for auditoryhallucinations, visual hallucinations, homicidal ideation, suicidegesture.Exam:02:52 Constitutional: This is a well developed, well nourished patient who th4is awake, alert, and in no acute distress. Head/Face: Normocephalic,atraumatic.02:52 Eyes: Periorbital structures: appear normal, Pupils: equal, round,and reactive to light, Extraocular movements: intact throughout.02:52 ENT: Mouth: Oral mucosa: moist, Voice: is normal.02:52 Neck: External neck: is normal, ROM/movement: is normal, is supple.02:52 Cardiovascular: Rate: normal, Rhythm: regular, Heart sounds: normal,normal S1and S2, no murmur.02:52 Respiratory: the patient does not display signs of respiratorydistress, Respirations: normal, Breath sounds: are normal, clearthroughout.02:52 Abdomen/GI: Bowel sounds: normal, Palpation: abdomen is soft andnon-tender, in all quadrants.02:52 Back: pain, is absent, ROM is normal.02:52 Musculoskeletal/extremity: Extremities: no acute changes.02:52 Skin: Appearance: Color: normal in color, Temperature: warm,Moisture: dry.02:52 Neuro: Orientation: is normal, Mentation: is normal, Cranial nerves:CN II- XII are normal as tested, Gait: is steady, at a normal pace,without difficulty.02:52 Psych: Behavior/mood is cooperative, depressed, Affect is calm,Oriented to person, place, time, Patient having thoughts of suicide.Denies suicidal plan. Judgement / Insight is impaired.Delusions/hallucinations are not present.Vital Signs:02:35 BP 117 / 59; Pulse 92; Resp 18; Temp 97.7; Pulse Ox 96% ; Weight yd6470.33 kg; Height 5 ft. 7 in. (170.18 cm);11:27 BP 124 / 76; Pulse 88; Resp 20; Temp 98; Pulse Ox 98% on R/A; fbg02:35 Body Mass Index 36.02 (104.33 kg, 170.18 cm) jw5MDM:02:40 Patient medically screened. th406:41 Data reviewed: vital signs, nurses notes, lab test result(s). ED [id number]: Patient remained stable in the ER. Patient here for mentalhealth evaluation as above. Case is endorsed to Dr. Rica oliver of shift pending PSA evaluation and disposition. Patient ismedically clear and has been cooperative..02/2202: Order name: Acetaminophen Level; Complete Time: : Order name: CBC with diff; Complete Time: : Order name: CMP; Complete Time: Order name: ETOH; Complete Time: Order name: Glucose : Order name: Salicylate Level; Complete Time: : Order name: Triage - Drug Screen; Complete Time: Order name: UA; Complete Time: Order name: Urine HCG Qualitative; Complete Time: : Order name: Diet - Mental Health Tray (call dietary); Complete Time: [id number]:[id number] Order name: Belongings List :38 Order name: Document Weight and Height for BMI; Complete Time: :: Order name: Mental Health Evaluation : Order name: Mental Health Level 3; Complete Time: : Order name: VS q shift; Complete Time: :28 Order name: Medically Cleared for Eval by-Psychosocial, [employer] th4(.PSA); Complete Time: 07:27Dispensed Medications:No medications were administeredSignatures:Dispatcher [employer] Anshul Loving MD MD afHowland, Todd, MD MD [id number] Mark RN RN [id number] mccallum RN RN [id number] Name Value Range Interpretation Code Description Data Stephanie rce(s) Supporting Document(s) ID Date Data Source [id number] 03/02/2021 11:27:00 AM EDT [facility] Nurse's NotesClaxRockland Psychiatric Center Medical Tootie terName: Yareli Mejiage: 20 yrsSex: FemaleDOB: 2000MRN: [id number] Date: 03/02/2021Time: 02:30Account#: [id number] MD: NONE, - Per PatientDiagnosis: Adjustment disorder, unspecifiedPresentation:02/2202:32 Presenting complaint: Patient brought in by [employer] officer Noel Huerta for [address] health evaluation for suicidal thoughts. International TravelFever No. Coronavirus Screening: Have you been diagnosed withCOVID-19 in the past 30 days? no Are [facility]? no Flu-like symptoms reported in the last 14 days: no.Have you had close contact with confirmed or suspected COVID-19 case?no Do you live in a setting where a large of amount of people live,such as residential, family care, usp, etc? no. Have you traveledto a location with widespread or ongoing COVID-19 community spread [facility]? no Have you traveled internationally or hadcontact with someone that has traveled and has been ill in the past 3weeks? no Have you received the COVID vaccine? Yes. CommunicableDisease Screen: Negative for fever>/= 100 degrees Fahrenheit.Communicable disease screen is negative. (-) rash or unusual skinlesion (-) travel/contact with traveler (-) respiratory symptoms.Communication Speaks Cymro? Yes, is preferred language.02:32 Acuity: Triage 2 jw502:32 Method Of Arrival: Police jw502:34 Acuity Assignment: Triage 2 zk8Qsdour Assessment:02:34 Sepsis Screening: (1)Signs/symptoms infection Sepsis is not fm9azjobvduo. Pain: Denies pain. PSS-3 Now I'm going to ask you somequestions that we ask everyone treated here, no matter what problemthey are here for. It is part of the hospital's policy and it helpsus to make sure we are not missing anything important. Over the past2 weeks, have you felt down, depressed, or hopeless? Yes. Exhibitingdepressed mood. Positive sc reen for depression, MD provider aware ofpositive screening. Education provided. Over the past 2 weeks, havehad thoughts of killing yourself? Yes, with no current ideation.Exhibiting Active Suicidal Ideation (SI). Positive screen for suiciderisk. MD provider aware of positive screening, suicide precautionsimplemented. ESS-6 ordered. In your lifetime, have you ever attemptedto kill yourself? Yes, Between 1 and 6 months ago. Exhibits LifetimeSuicide Attempt (SA). Positive screen for suicide risk. MD provideraware, suicide precautions implemented. ESS-6 ordered. Derm: Nodeficits noted. EENT: No deficits noted. Neuro: Level ofConsciousness is awake, alert, Oriented to person, place, time.Cardiovascular: No deficits noted. Respiratory: No deficits noted.GI: No deficits noted. : No deficits noted. Musculoskeletal: Nodeficits noted.ARNP:02:35 LMP N/A - Irregular menses uh7Wamjhxyftt:- Allergies: Haldol; Risperdal;- Home Meds:1. ibuprofen 400 mg Oral tab 1 tab prn for headaches2. Latuda 80 mg oral tab 1 tab once daily3. loratadine 10 mg oral TbDi once daily4. lurasidone 80 mg oral tab 20:005. montelukast 10 mg oral tab 1 tab once daily6. pravastatin 20 mg oral tab 1 tab nightly7. prazosin 1 mg Oral cap nightly8. propranolol 10 mg Oral tab 1 tab twice per day9. sertraline 150mg oral tab once daily10. topiramate 75mg oral tab once daily11. trazodone 50 mg Oral tab 1 tab prn insomnia- PMHx: ADHD; ANXIETY; BIPOLAR DISORDER; Depressive disorder; PsychHx; ptsd;- Immunization history: Flu vaccine is not up to date.- Social history: Smoking status: Patient uses tobacco products,current every day smoker. ETOH status Denies use of ETOH.- Advance Directives:: None.Screenin:50 Abuse screen: Denies threats or abuse. Denies injuries from another. iv4Pjkrvozqfls screening: No deficits noted. Offer of HIV testing:patient was previously offered screening. Fall Risk None identified.Assessment:02:50 Derm: Skin is pink, warm & dry. kk302:50 Pain: Denies pain. General: Appears unkempt, well nourished, Behavior kk3is cooperative. Neuro: Level of Consciousness is awake, alert,Oriented to person, place, time, Denies weakness dizziness.Respiratory: Airway is patent Respiratory effort is even, unlabored,Respiratory pattern is regular, symmetrical. GI: Denies nausea, pain,vomiting. Musculoskeletal: Circulation, motion, and sensation intact.04:49 Reassessment: Patient appears in no apparent distress at this time. jk4Htiuthf is asleep.06:12 Reassessment: Patient appears in no apparent distress at this time. ok2Iidxsvrqsuhi:10:54 SAFE Act Report Not Completed. Intervention: Observation Level 3. dy7Ypgqhr health consult is initiated at 10:10. Referral Information:Evaluation referral is generated by the patient himself / herself.The patient was referred for evaluation because Suicidal Ideation.10:57 Subjective: The patients chief complaint is SI. Patient is a 20 y/o sl8cpguw female who was discharged from the inpatient MHU within 10hours of returning to the ED with SI complaints. Pt. was re-evaluatedby Dr. Almaguer in the ed was was able to contract for safety. Pt isbeing discharged per Dr. Almaguer who believes patient is not a danger toself or others at this time.. Patient reports history of anxiety,Bipolar Disorder, Depression, Mental Health Admissions: multiple.Current Outpatient Mental Health Services: Psychiatrist / Agency: [facility] Walk-In appointment in [place] on Wednesday.. LivingEnvironment:. Patient presents to Emergency Department with thefollowing symptoms within the past 2 weeks: Agitation. Objective:Patient is agitated, Speech is pressured, Affect is labile. Mentalstatus exam: Patients appearance is obese, Patient's behavior isagitated, Speech is pressured. Affect is labile. Mood is irritable.Perception is normal. Appetite is normal. Memory is good. Energylevel is normal. Content of thought is normal. Thought Process isintact. Cognitive level is Oriented to person,place and time. Insight/ Judgment is good. Rapport with interviewer is good. SuicidalIdeation: Denies. Homicidal Ideation: Denies. Notification to familyof patient status is not currently needed or appropriate.Consultation: Psych MD informed of patient's status at 10:10, ED MDnotified of patients status at 11:05, Mental Health CLINICAL EDUCATION ASSISTANT made awareof pt status at 11:05. Disposition: The patient has a safedestination which is Patient is being discharged back to [facility]. DSM-V DX [place] I diagnosis: Adjustment D/O w mixedemotion, conduct. The patient is not a cashier self service gasoline or militarydependent. [place] Suicide Severity Rating Scale: Suicidal IdeationRating 0; Intensity of Ideations Rating 0; Suicidal Behavior Rating 0.Psych:02:37 Subjective: Patient's mood is sad, Delusions are denied, es1Exzfuctmhfpwnr are denied Having thoughts of suicide. Denies suicidalplan. Objective: Patient is cooperative, Speech is normal, Affect isappropriate. Interventions: Removed personal items and placed in bag.Patient placed in hospital gown. Observation Level Level 3 Sitterneeded. Provider notified. Nils Argueta MD Charge nurse notified.Fortunato Mark RN Level 3 order placed.Vital Signs:02:35 BP 117 / 59; Pulse 92; Resp 18; Temp 97.7; Pulse Ox 96% ; Weight lb8445.33 kg; Height 5 ft. 7 in. (170.18 cm);11:27 BP 124 / 76; Pulse 88; Resp 20; Temp 98; Pulse Ox 98% on R/A; fbg02:35 Body Mass Index 36.02 (104.33 kg, 170.18 cm) jw5ED Course:02:31 Patient arrived in ED. jw502:32 NONE, - Per Patient is Private Physician. jw502:34 Triage completed. jw502:40 Nils Argueta MD is Attending Physician. th402:50 No apparent distress. Pt. is pacing. kk302:50 Patient has correct armband on for positive identification. Placed in uo7jmdx. Bed in low position. Side rails up X 1. Sitter at bedside.Verbal reassurance given. Pillow given. Head of bed elevated.02:55 Labs drawn. Collected by lab. kk303:45 No apparent distress. Resting quietly. kk303:45 Sitter at bedside. kk303:56 Ratna Barbosa, RN is Primary Nurse. kk304:49 No apparent distress. Appears to be sleeping. kk304:49 Sitter at bedside. kk305:47 No apparent distress. Appears to be sleeping. kk305:47 Sitter at bedside. kk307:20 Report given to Vincenzo Luis RN. kk307:25 Primary Nurse role handed off by Ratna Barbosa RN kk307:45 Diet: Patient given regular meal. fbg09:36 Appears to be sleeping. fbg10:33 Appears angry. Awaiting disposition. fbg11:27 No Physician assisted procedures completed. fbgAdministered Medications:No medications were administeredOutcome:11:12 Discharge ordered by MD. af11:27 Disposition: Discharged to home ambulatory. fbg11:27 Condition: posuiindl28:27 Discharge instructions given to patient, Instructed on dischargeinstructions, follow up and referral plans. medication usage.11:27 Discharge Assessment: Patient awake, alert and oriented x 3. Nocognitive and/or functional deficits noted. Patient verbalizedunderstanding of disposition instructions. Patient verbalizedunderstanding of disposition instructions. Patient has no functionaldeficits.11:27 Patient left the ED. fbgSignatures:Vincenzo Luis, JOSE LUIS RN fbgFedoroAnshul casillas MD MD afStickles, Robert, PSA PSA [id number] Argueta MD MD [id number] humphrey RN RN [id number] Barbosa, JOSE LUIS RN [id number]: (The following items were deleted from the chart)11:06 10:54 Referral Information: Evaluation referral is generated by the fv6wyzfeyq himself / herself. rs2 Name Value Range Interpretation Code Description Data Stephanie rce(s) Supporting Document(s) ID Date Data Source [id number] 03/01/2021 11:36:00 AM EDT [address] CONSULTPATIENT NAME: YARELI HATCH MR#: [id number] PHYSICIAN:AUTHOR: Kary Gray NP DATE: RM#: ERPATIENT : 00HistoryHistory of Presenting IllnessPatient is 20-year-old female, currently lives at [facility], past psychhistory of mood disorder, borderline personality disorderChief complaint: Patient was brought into the hospital after reporting havingsuicidal ideationHistory of present illness: Patient was seen along with nurse practitionerduring this course of assessment. Patient was sitting outside emergency roomdoor, stating that she has been feeling fine and she wants to be discharged,she is no longer feeling suicidal and she was also stating that she wassomewhat upset yesterday after talking to her brother and he was not treatingher well so that is the reason she became suicidal but she does not feelsuicidal now, she stated that her plan when she goes out she is not going totalk to her brother, she stated that she has a friend from [place] that she talksand that friend treats her really well at this point. She [facility] to go back [facility], stating that she wants to enjoy beautiful weather outside and she alsolikes to eat good food as well. She denied having any concern about her safetyor others, she is open to write 5 goals 5 coping skills and also expressed thatif she feels suicidal outside she will come back into the hospital for furtherhelp if needed.Mental status examination: Patient was alert, oriented with time place person,cooperative, somewhat pleasant, her speech remain normal in rate rhythm andtone, mood is good, affect was mood congruent, thought process was mostlyorganized, thought content denied having any suicidal, homicidal ideations,denied having any auditory visual hallucinations, denied delusions, attentionconcentration improved, insight and judgment appeared fairDiagnosis: Depression disorder unspecified, borderline personality disorder,history of schizoaffective disorder and major depressive disorderPlan: Since patient denied having any suicidal ideation, she also talked abouther goals outside, she expressed to maintain her safety outside by beingwilling to reaching out for further help for coming back into the hospital. Wedo not have any further criteria for inpatient hospitalization and we aredischarging the patient at this point. Continue current psychotropicmedication as well as recommended to follow-up with her outpatient providers.Past Psych/Medical HistoryAllergiesCoded Allergies:haloperidol (From HALDOL) (06/15/20)risperidone (08/04/19)DATE SIGNED: 03/01/21 Electronically SignedTIME SIGNED: 1139 KARY CHRISTOPHER GRAY Name Value Range Interpretation Code Description Data Stephanie rce(s) Supporting Document(s) ID Date Data Source [id number] 03/01/2021 08:18:00 AM EDT [facility] Name Value Range Interpretation Code Description Data Stephanie rce(s) Supporting Document(s) LCOVID-19, CORDELL NEGATIVE [facility] This lab was ordered by [facility] and reported by [facility]. ID Date Data Source [id number] 03/01/2021 08:55:00 AM EDT [facility] Name Value Range Interpretation Code Description Data Stephanie rce(s) Supporting Document(s) COVID-19, CORDELL NEGATIVE NEGATIVE [facility] Methodology: Isothermal Nucleic Acid Amp lification for thetargeted qualitative detection of SARS-CoV-2 viral nucleicacids. Negative results should be treated as presumptive and, ifinconsistent with clinical signs and symptoms or necessaryfor patient management, should be tested with differentauthorized or cleared molecular tests. Negative results donot preclude SARS-CoV-2 infection and should not be used asthe sole basis for patient management decisions. Negativeresults should be considered in the context of a patient'srecent exposures history and the presence of clinical signsand symptoms consistent with COVID-19.The ID NOW COVID-19 test is only for use under the Food andDrug Administration's Emergency Use Authorization. ID Date Data Source [id number] 02/28/2021 10:15:00 PM EDT [facility] Name Value Range Interpretation Code Description Data Stephanie rce(s) Supporting Document(s) PCP VISTA NEG NEGATIVE [facility] MINIMUM LEVEL OF DETECTION IS 25 ng/ml BENZODIAZEPINES [facility] LEV[facility] OF DETECTION IS 200 ng/ml COCAINE VISTA NEG NEGATIVE [facility] MINIMUM LEVEL OF DETECTION IS 300 ng/ml AMPHETAMINES [facility]G [facility]GAT[facility] MINIMUM LEVEL OF DETECTION IS 1000 ng/ml BARBITURATES NEG NEGATIVE [facility] CUTOFF CONCENTRATION IS 200 ng/ml CANNABINOIDS NEG NEGATIVE [facility] CUTOFF CONCENTRATION IS 50 ng/ml METHADONE VISTA NEG NEGATIVE [facility] MINIMUM LEVEL OF DETECTION IS 300 ng/ml OPIATE VISTA NEG NEGATIVE [facility] MINIMUM DETECTION LEVEL IS 300 ng/ml ID Date Data Source [id number] 02/28/2021 09:59:00 PM EDT [facility] Name Value Range Interpretation Code Description Data Stephanie rce(s) Supporting Document(s) URINE COLOR Yellow [facility] UAPR Clear [facility] UGLU Negative NEGATIVE [facility] URINE BILIRUBIN [facility] UKET Trace NEGATIVE [facility] USG 1.028 1.010-1.025 [facility] UBLO Negative NEGATIVE [facility] UpH 6.0 5.0-8.0 [facility] UPRO Negative Negative [facility] UUB 1.0 mg/dL 0.2-1.0 [facility] UNIT Negative Negative [facility] ULEU Negative Negative [facility] ID Date Data Source [id number] 02/28/2021 09:59:00 PM EDT [facility] Name Value Range Interpretation Code Description Data Stephanie rce(s) Supporting Document(s) HCG QUAL [facility]INE Negative [facility] ID Date Data Source [id number] 02/28/2021 10:15:00 PM EDT [facility] Name Value Range Interpretation Code Description Data Stephanie rce(s) Supporting Document(s) SALICYLATE < 1.7 mg/dL 0.0-20.0 [facility] ID Date Data Source [id number] 02/28/2021 10:15:00 PM EDT [facility] Name Value Range Interpretation Code Description Data Stephanie rce(s) Supporting Document(s) ACETAMINOPHEN < 2.0 ug/mL 0-30 [facility] ID Date Data Source [id number] 02/28/2021 10:15:00 PM EDT [facility] Name Value Range Interpretation Code Description Data Stephanie rce(s) Supporting Document(s) ETOH NONE DETECTED [facility] NONE DETECTED ID Date Data Source [id number] 02/28/2021 10:15:00 PM EDT [facility] Name Value Range Interpretation Code Description Data Stephanie rce(s) Supporting Document(s) GLU 98 mg/dL 70-110 [facility] Patients taking Sulfasalazine may have f alsely depressedGlucose levels. Patients taking Sulfapyridine may havefalsely elevated Glucose levels. Patients should be drawnfor Glucose before the initial administration of eitherdrug. BUN 14 mg/dL 7-23 [facility] CRE 0.645 mg/dL 0.500-1.300 [facility] GFR > 60 mL/min [facility] CHLORIDE 109 mmol/L 99-110 [facility] NA 140 mmol/L 136-147 [facility] POTASSIUM 3.6 mmol/L 3.5-5.1 [facility] TCO2 22 mmol/L 20-33 [facility] ANION GAP 12.6 10.0-20.0 [facility] CA 8.6 mg/dL 8.3-10.7 [facility] ALKALINE PHOS 114 U/L 45-117 [facility] TP 7.3 g/dL 6.0-7.8 [facility] ALB 3.6 g/dL 3.5-5.0 [facility] ESRD Dialysis patient Albumin reference range: 2.9-4.4 g/dL GL 3.7 g/dL 2.3-3.5 [facility] A/G 1.0 1.0-2.5 [facility] T. BILIRUBIN 0.3 mg/dL 0.1-1.1 [facility] [place] Total Bilirubin is n ot recommended forpatients undergoing treatment with eltrombopag (Promacta)due to the potential for falsely elevated results. ALTI 44 U/L 6-54 [facility] Patients taking Sulfasalazine and/or Sul fapyridine may havefalsely depressed ALT levels. Patients should be drawn forALT before the initial administration of either drug. AST 18 U/L 6-38 [facility] Patients taking Sulfasalazine and/or Sul fapyridine may havefalsely depressed AST levels. Patients should be drawn forAST before the initial administration of either drug. ID Date Data Source [id number] 02/28/2021 10:03:00 PM EDT [facility] Name Value Range Interpretation Code Description Data Stephanie rce(s) Supporting Document(s) WBC 10.31 x10E3/uL 4.0-10.5 N [facility] l RBC 4.19 x10E6/uL 4.20-5.40 L [facility] Hemoglobin 12.3 g/dL 12.0-16.0 [facility] Hematocrit 37.1 % 37.0-47.0 [facility] MCV 88.5 fL 81.0-99.0 N [facility] MCH 29.4 pg 27.0-31.0 [facility] MCHC 33.2 g/dL 32.7-35.6 [facility] RDW 12.2 % 11.5-14.0 [facility] Platelet count 274 x10E3/uL 150-450 N [facility] ital MPV 9.7 fl 6.9-9.5 H [facility] Neutrophils 60.8 % 34-64 N [facility] Lymphocytes 29.1 % 25-45 N [facility] Monocytes 8.0 % 1.7-10.6 N [facility] Eosinophils 1.4 % 0.4-7.0 [facility] Basophils 0.2 % 0.1-2.0 [facility] Imm. Gran. 0.5 % 0.1-2.0 [facility] Abs. Neutro. 6.28 x10E3/uL 1.2-7.6 [facility] Abs. Lymph. 3.00 x10E3/uL 1.0-3.5 [facility] Abs. [place]. 0.82 x10E3/uL 0.1-1.0 [facility] Abs. Eosin. 0.14 x10E3/uL 0.1-0.7 [facility] Abs. Baso. 0.02 x10E3/uL 0.0-0.1 [facility] Abs. Imm. Gran. 0.05 x10E3/uL 0.0-0.1 N [facility] car[facility]% 0 % 0 N [facility] ID Date Data Source [id number] 03/01/2021 12:39:00 PM EDT [facility] Physician DocumentationClaxlexy-Naveen Hinkle edical CenterName: Yareli AdamelAge: 20 yrsSex: FemaleDOB: 2000MRN: [id number] Date: 02/28/2021Time: 21:08Account#: [id number] MD: NONE, - Per PatientED Physician Nils ArguetaDiszach Summary:03/01/21 11:57Discharge OrderedLocation: Home Self Care afProblem: an ongoing problem afSymptoms: are unchanged afCondition: Stable afDiagnosis- Bipolar disorder, unspecified afFollowup: af- With: Private Physician- When: 1 week- Reason: Recheck today's complaintsDischarge Instructions:- BIPOLAR DISORDER af- Discharge Summary Sheet [id number]:- Medication Reconciliation af- Medication Reconciliation Form - 2nd Copy afHPI:02/2021:26 This 20 yrs old White Female presents to ER via Police with qo9eslhzgjcki of Psych Problem.21:26 Associated signs and symptoms: Pertinent negatives: abdominal pain, en8wklko pain, fever, headache, nausea, shortness of breath, vomiting.Patient is brought in by police for mental health evaluation. Patientreports suicidal ideation with a plan to jump into traffic. She hasattempted suicide in the past by overdose. She is feeling anxious anddepressed. Denies any homicidal ideation or hallucinations. Shereports that she has been taking her medications. She was last in the for mental health evaluation on February 21 and was transferred forinpatient care at that time. She denies any other problems or anyother complaints..Historical:- Allergies: Haldol; Risperdal;- Home Meds:1. ibuprofen 400 mg Oral tab 1 tab prn for headaches2. Latuda 80 mg oral tab 1 tab once daily3. loratadine 10 mg oral TbDi once daily4. lurasidone 80 mg oral tab 20:005. montelukast 10 mg oral tab 1 tab once daily6. pravastatin 20 mg oral tab 1 tab nightly7. prazosin 1 mg Oral cap nightly8. propranolol 10 mg Oral tab 1 tab twice per day9. sertraline 150mg oral tab once daily10. topiramate 75mg oral tab once daily11. trazodone 50 mg Oral tab 1 tab prn insomnia- PMHx: ADHD; ANXIETY; BIPOLAR DISORDER; Depressive disorder; PsychHx; ptsd;- Immunization history: Flu vaccine is not up to date.- Social history: Smoking status: Patient uses tobacco products,current every day smoker. ETOH status Denies use of ETOH.- Advance Directives:: None.ROS:21:27 Constitutional: Negative for fever. Eyes: Negative for acute changes. th4ENT: Negative for nasal discharge, rhinorrhea, sinus congestion.Neck: Negative for a cute changes. Cardiovascular: Negative for chestpain. Respiratory: Negative for shortness of breath. Abdomen/GI:Negative for abdominal pain, nausea, vomiting, diarrhea. Back:Negative for acute changes. : Negative for acute changes.MS/extremity: Negative for acute changes. Skin: Negative for acutechanges. Neuro: Negative for headache, weakness. Psych: Positive foranxiety, depression, suicidal ideation, Negative for auditoryhallucinations, visual hallucinations, homicidal ideation, suicidegesture.Exam:21:28 Constitutional: This is a well developed, well nourished patient who th4is awake, alert, and in no acute distress. Head/Face: Normocephalic,atraumatic.21:28 Eyes: Periorbital structures: appear normal, Pupils: equal, round,and reactive to light, Extraocular movements: intact throughout.21:28 ENT: Mouth: Oral mucosa: moist, Voice: is normal.21:28 Neck: External neck: is normal, ROM/movement: is normal, is supple.21:28 Cardiovascular: Rate: normal, Rhythm: regular, Heart sounds: normal,normal S1and S2, no murmur.21:28 Respiratory: the patient does not display signs of respiratorydistress, Respirations: normal, Breath sounds: are normal, clearthroughout.21:28 Abdomen/GI: Bowel sounds: normal, Palpation: abdomen is soft andnon-tender, in all quadrants.21:28 Back: pain, is absent, ROM is normal.21:28 Musculoskeletal/extremity: Extremities: no acute changes.21:28 Skin: Appearance: Color: normal in color, Temperature: warm,Moisture: dry.21:28 Neuro: Orientation: is normal, Mentation: is normal, Cranial nerves:CN II- XII are normal as tested.21:28 Psych: Behavior/mood is pleasant, cooperative, suicidal, depressed,Affect is flat, Oriented to person, place, time, Patient havingthoughts of suicide. Plan for suicide is Jump into traffic Judgement/ Insight is impaired. Delusions/hallucinations are not present.Vital Signs:21:15 BP 126 / 70; Pulse 85; Resp 18; Temp 97.8; Pulse Ox 97% ; Weight mw2626.95 kg; Height 5 ft. 6 in. (167.64 cm);22:59 BP 120 / 64; Pulse 75; Resp 16; Pulse Ox 97% ; jw508/2111:37 ml:15 Body Mass Index 38.41 (107.95 kg, 167.64 cm) jw512:37 refused vitals ml4MDM:02/2021:11 Patient medically screened. th:53 Data reviewed: vital signs, nurses notes, lab test result(s). ED ux7wtajbh: Patient remained stable in the ER. Patient here for mentalhealth evaluation as above. Case is endorsed to Dr. Rica oliver of shift pending PSA evaluation disposition. Patient ismedically clear and has been cooperative..02/2021:18 Order name: Acetaminophen Level; Complete Time: 22:15 :18 Order name: CBC with diff; Complete Time: 22:15 jw:18 Order name: CMP; Complete Time: 22:15 jw:18 Order name: ETOH; Complete Time: 22:15 jw508:18 Order name: Glucose jw:18 Order name: Salicylate Level; Complete Time: 22:15 jw508:18 Order name: Triage - Drug Screen; Complete Time: 22:15 jw:18 Order name: UA; Complete Time: 22:15 jw:18 Order name: Urine HCG Qualitative; Complete Time: 22:15 jw:17 Order name: COVID-19 PROFILE+LAB; Complete Time: 12:00 :18 Order name: Diet - Mental Health Tray (call dietary); Complete Time: jw523::18 Order name: Belongings List :18 Order name: Document Weight and Height for BMI; Complete Time: 23:00 :18 Order name: Mental Health Evaluation; Complete Time: 00:43 :18 Order name: Mental Health Level 3; Complete Time: 23::18 Order name: VS q shift; Complete Time: 23::16 Order name: Medically Cleared for Eval by- Psychosocial, Ios Architect th4(.PSA); Complete Time: ::17 Order name: EKG in Patient's Room; Complete Time: ::17 Order name: EKG.; Complete Time: : fbgDispensed Medications:02/2023:22 Drug: Latuda 80 mg Route: PO; sc308:22 Follow up: Response: No adverse reaction sc:22 Drug: Prazosin 1 mg Route: PO; sc308:43 Follow up: Response: No adverse reaction sc:22 Drug: Propranolol 10 mg Route: PO; sc308:22 Follow up: Response: No adverse reaction sc:22 Drug: pravastatin Sodium 20 mg Route: PO; sc308:32 Follow up: Response: No adverse reaction sc307:06 Drug: Acetaminophen 650 mg [acetaminophen 325 mg tablet (2 tabs)] bk0Wssvk: PO;09:45 Drug: Propranolol 10 mg [propranolol 10 mg tablet (1 tabs)] Route: PO;fbg09:46 Drug: sertraline 150 mg [sertraline 50 mg tablet (3 tabs)] Route: PO; fbg09:46 Drug: Topiramate 75 mg [topiramate 25 mg tablet (3 tabs)] Route: PO; fbgSignatures:Dispatcher [employer] Vincenzo Acosta RN RN fbgFedorowiAnshul bull MD MD afHowland, Todd, MD MD [id number] humphrey RN RN [id number] RN RN sc3 Name Value Range Interpretation Code Description Data Stephanie rce(s) Supporting Document(s) ID Date Data Source [id number] 03/01/2021 12:39:00 PM EDT [facility] Tootie terName: Yareli AdamelAge: 20 yrsSex: FemaleDOB: 2000MRN: [id number] Date: 02/28/2021Time: 21:08Account#: [id number] 3Private MD: NONE, - Per PatientDiagnosis: Bipolar disorder, unspecifiedPresentation:02/2021:09 Presenting complaint: Patient brought in by [employer] Noel Huerta after doing jw5a wellness check and patient reporting to be suicidal wanting to jumpinto traffic. International Travel Fever No. Coronavirus Screening:Have you been diagnosed with COVID-19 in the past 30 days? no Are youcurrently on quarantine by Public Health? no Flu-like symptomsreported in the last 14 days: no. Have you had close contact withconfirmed or suspected COVID-19 case? no Do you live in a settingwhere a large of amount of people live, such as residential, familycare, usp, etc? no. Have you traveled to a location with widespreador ongoing COVID-19 community spread or outside of [facility]? no Haveyou traveled internationally or had contact with someone that hastraveled and has been ill in the past 3 weeks? no Have you receivedthe COVID vaccine? Yes. Communicable Disease Screen: Negative forfever>/= 100 degrees Fahrenheit. Communicable disease screen isnegative. (-) rash or unusual skin lesion (-) travel/contact withtraveler (-) respiratory symptoms. Communication Speaks Cymro? Yes,is preferred language.21:09 Acuity: Triage 2 jw521:09 Method Of Arrival: Police jw521:11 Acuity Assignment: Triage 2 [id number] Assessment:21:14 General: Appears in no apparent distress, Behavior is cooperative. [id number] Screening: (1)Signs/symptoms infection Sepsis is notsuspected. Pain: Denies pain. PSS-3 Now I'm going to ask you somequestions that we ask everyone treated here, no matter what problemthey are here for. It is part of the hospital's policy and it helpsus to make sure we are not missing anything important. Over the past2 weeks, have you felt down, depressed, or hopeless? Yes. Exhibitingdepressed mood. Positive screen for depression, MD provider aware ofpositive screening. Education provided. Over the past 2 weeks, havehad thoughts of killing yourself? Yes, with current ideation. ActiveSuicidal Ideation (SI). Positive screen for suicide risk. MD provideraware of positive screening, suicide precautions implemented. ESS-6ordered. In your lifetime, have you ever attempted to kill yourself?Yes, Within the last month (but not today). Exhibits Lifetime SuicideAttempt (SA). Positive screen for suicide risk. MD provider aware ofpositive screen, suicide precautions implemented. ESS-6 ordered.Derm: No deficits noted.Historical:- Allergies: Haldol; Risperdal;- Home Meds:1. ibuprofen 400 mg Oral tab 1 tab prn for headaches2. Latuda 80 mg oral tab 1 tab once daily3. loratadine 10 mg oral TbDi once daily4. lurasidone 80 mg oral tab 20:005. montelukast 10 mg oral tab 1 tab once daily6. pravastatin 20 mg oral tab 1 tab nightly7. prazosin 1 mg Oral cap nightly8. propranolol 10 mg Oral tab 1 tab twice per day9. sertraline 150mg oral tab once daily10. topiramate 75mg oral tab once daily11. trazodone 50 mg Oral tab 1 tab prn insomnia- PMHx: ADHD; ANXIETY; BIPOLAR DISORDER; Depressive disorder; PsychHx; ptsd;- Immunization history: Flu vaccine is not up to date.- Social history: Smoking status: Patient uses tobacco products,current every day smoker. ETOH status Denies use of ETOH.- Advance Directives:: None.Screenin:59 Abuse screen: Denies threats or abuse. Denies injuries from another. [id number] screening: No deficits noted. Offer of HIV testing:patient was previously offered screening. Fall Risk None identified.Assessment:22:58 Reassessment: Patient appears in no apparent distress at this time. jw508/2111:36 Reassessment: No changes from previously documented assessment. im0Pmcztiwtvvid:02/2022:21 SAFE Act Report Not Completed. Intervention: Observation Level 3. nhReferral Information: Evaluation referral is generated by a policeagency: [employer]. The patient was referred for evaluation because suicidalideations.02/2104:34 Mental health consult is initiated at 04:34. nh04:53 Subjective: The patients chief complaint is Pt reports to the ED by [place] with suicidal ideations with a plan to jump into traffic. Ptstates that she has continuously felt suicidal for as long as she canremember. Pt denies HI. Pt has an unknown amount of suicide attempts.Pt has a history of self harm but states that she has not done sorecently. Pt states that she was inpatient at [facility] from02/21/21-02/25/21. Pt states that she is [facility] to [facility] and she has anappointment next week but doesn't know who it is with yet. Pt has ahistory of anxiety, depression, and bipolar disorder. Pt states thatshe is taking her medications as prescribed. Pt denies using drugs oralcohol. Pt denies past rehab treatment. Pt reports a family historyof mental health illness. Pt states that she doesn't currently have ajob. Pt denies hallucinations. Pt denies access to guns. Pt statesthat she has court in [place] 18. Pt does not presentwith delusional thoughts. Delusions are denied, Hallucinations aredenied. Patient's mood is depressed, Having thoughts of suicide. Planfor suicide is jumping into trffic. Patient reports history ofanxiety, Bipolar Disorder, Depression, self - mutilation, suicideattempt: many Mental Health Admissions: 02/21-02/25/2021 [facility] Outpatient Mental Health Services: Psychiatrist / Agency:[facility]. Living Environment: Family /Home Support: poor The patient currently lives in a [place] residence.The patient is single. Detox / Rehab Admissions: None. Current OutptAlcohol or Substance Abuse Services: None. Family History, Mentalillness. Patient presents to Emergency Department with the followingsymptoms within the past 2 weeks: anxiety, depressed mood, feelingsof helplessness/hopelessness, poor concentration, poor impulsecontrol, self-mutilation, sleep disturbance - insomnia, suicidalideation with plan for jumping into traffic. Objective: Patient iscooperative, Speech is normal. Affect is flat. Mental status exam:Patients appearance is obese, unkempt, Patient's behavior is normal,Speech is normal. Affect is flat. Mood is depressed. Perception isnormal. Appetite is normal. Memory is fair. Energy level is : tireseasily. Content of thought is depressive. . Thought Process isintact. Cognitive level is Oriented to person,place and time. Insight/ Judgment is poor. Rapport with interviewer is good. SuicidalIdeation: Plan is jumping into traffic. Homicidal Ideation: Denies.11:53 Consultation: Psych MD informed of patient's status at 11:53, ED [id number] of patients status at 11:53. Disposition: Medically clearedfor disposition by Dr Argueta. Psychiatric Consult is performed byphone with Dr Almaguer The patient has a safe destination which is Ptwill be discharged home per Dr. Almaguer. Pt can contract for safety anddenies SI/HI. Pt will follow up with [facility]. Pt provided contactinformation for PSA and [employer]. Pt will come to the ED if problemscontinue or worsen. DSM-V DX [place] I diagnosis: Bipolar D/O, depressedAxis II diagnosis: Deferred [place] III diagnosis: None. [place] IVdiagnosis: poor impulse control. The patient is not a service memberor dependent. [place] Suicide Severity Rating Scale:Suicidal Ideation Rating 0; Intensity of Ideations Rating 0; SuicidalBehavior Rating 0.Psych:02/2021:18 Subjective: Patient's mood is irritable, Delusions are denied, sw9Vjhucmdsmipohy are denied Having thoughts of suicide. Plan forsuicide is to jump into traffic. Objective: Patient is irritable,using poor eye contact, Speech is normal, Affect is. Interventions:Removed personal items and placed in bag. Patient placed in hospitalgown. Searched person for dangerous items. Observation Level Level 3Sitter needed. Provider notified. Nils Argueta MD Charge nursenotified. Fortunato Mark RN Level 3 order placed.Vital Signs:21:15 BP 126 / 70; Pulse 85; Resp 18; Temp 97.8; Pulse Ox 97% ; Weight il4140.95 kg; Height 5 ft. 6 in. (167.64 cm);22:59 BP 120 / 64; Pulse 75; Resp 16; Pulse Ox 97% ; jw508/2112:37 ml408/2020:15 Body Mass Index 38.41 (107.95 kg, 167.64 cm) jw512:37 refused vitals ml4ED Course:02/2021:09 Patient arrived in ED. jw521:09 NONE, - Per Patient is Private Physician. jw521:11 Triage completed. jw521:11 Nils Argueta MD is Attending Physician. th422:59 Patient has correct armband on for positive identification. Bed in jw5low position. Sitter at bedside.22:59 No Physician assisted procedures completed. jw523:21 Geno Meléndez, JOSE LUIS is Primary Nurse. sc308/2101:00 Sitter at bedside. sc302:00 No apparent distress. Appears to be sleeping. sc303:00 Sitter at bedside. sc304:00 No apparent distress. Appears to be sleeping. sc305:00 No apparent distress. Appears to be sleeping. sc305:00 Sitter at bedside. sc306:51 Sitter at bedside. sc306:52 No apparent distress. Appears to be sleeping. sc307:45 Diet: Patient given regular meal. fbg08:25 EKG done. (by ED staff). Reviewed by Anshul Strauss MD. jab10:19 Verbal reassurance given. Pillow given. Head of bed elevated. fbgAdministered Medications:02/2023:22 Drug: Latuda 80 mg Route: PO; sc308:22 Follow up: Response: No adverse reaction sc: Drug: Prazosin 1 mg Route: PO; sc308:43 Follow up: Response: No adverse reaction sc: Drug: Propranolol 10 mg Route: PO; sc:22 Follow up: Response: No adverse reaction sc:22 Drug: pravastatin Sodium 20 mg Route: PO; sc308/2100:32 Follow up: Response: No adverse reaction sc307:06 Drug: Acetaminophen 650 mg [acetaminophen 325 mg tablet (2 tabs)] hc2Zzltq: PO;09:45 Drug: Propranolol 10 mg [propranolol 10 mg tablet (1 tabs)] Route: PO;fbg09:46 Drug: sertraline 150 mg [sertraline 50 mg tablet (3 tabs)] Route: PO; fbg09:46 Drug: Topiramate 75 mg [topiramate 25 mg tablet (3 tabs)] Route: PO; fbgOutcome:11:57 Discharge ordered by . af12:37 Condition: stable. ml412:37 Discharge instructions given to patient, Instructed on dischargeinstructions, follow up and referral plans. Demonstratedunderstanding of instructions.12:37 Demonstrated understanding of after discussing with Dr Almaguer patientwas able to write out five goals and five coping skills, pt deniescurrent suicidal ideation and felt ready to go home12:37 Discharge Assessment: Patient verbalized understanding of dispositioninstructions. Patient has no functional deficits.12:39 Patient left the ED. yx2Vufuknfivn:Vincenzo Luis, RN RN fbgBrown, QUIN Bucio Arthur, MD MD afHowland, Todd, MD MD [id number] humphrey, RN RN yc6Yzvz, Marianna Osullivan McKenzie, RN RN [id number], Geno RN RN sc3 Name Value Range Interpretation Code Description Data Stephanie e(s) Supporting Document(s) ID Date Data Source [id number] 02/26/2021 08:59:13 AM EDT [facility] Name Value Range Interpretation Code Description Data [facility] Document(s) Discharge Summary [facility] SIVNXr6vLbYAMrAf35/RCXzpOFLbx2SwDFheSIu3ZXmdWNEmA1WbYJZ8hT1tVTJ8EZxUJcSxThRfLLK2 lbm [file] ICAgICAgICAgICAgICAgICAgICAgICAgICAgICAgIC AgICAgICAgICAgICAgICAgICAgICAgICAgICAgICAgDQogICAgICAgICAgICAgICAgICAgICAgICAgIC AgICAgICAgICAgICAgICAgICAgICAgICAgICAgICAgICAgICAgICAgICAgICAgICAgICAgICAgICAgIC AgICAgICAgICAgICAgDQogICAgICAgICAgICAgICAg ICAgICAgICAgICAgICAgICAgICAgICAgICAgICAgICAgICAgICAgICAgICAgICAgICAgICAgICAgICAg ICAgICAgICAgICAgICAgICAgICAgICAgDQogICAgICAgICAgICAgICAgICAgICAgICAgICAgICAgICAg ICAgICAgICAgICAgICAgICAgICAgICAgICAgICAgIC AgICAgICAgICAgICAgICAgICAgICAgICAgICAgICAgICAgDQogICAgICAgICAgICAgICAgICAgICAgIC AgICAgICAgICAgICAgICAgICAgICAgICAgICAgICAgICAgICAgICAgICAgICAgICAgICAgICAgICAgIC AgICAgICAgICAgICAgICAgDQogICAgICAgICAgICAg ICAgICAgICAgICAgICAgICAgICAgICAgICAgICAgICAgICAgICAgICAgICAgICAgICAgICAgICAgICAg ICAgICAgICAgICAgICAgICAgICAgICAgICAgDQogICAgICAgICAgICAgICAgICAgICAgICAgICAgICAg ICAgICAgICAgICAgICAgICAgICAgICAgICAgICAgIC AgICAgICAgICAgICAgICAgICAgICAgICAgICAgICAgICAgICAgDQogICAgICAgICAgICAgICAgICAgIC AgICAgICAgICAgICAgICAgICAgICAgICAgICAgICAgICAgICAgICAgICAgICAgICAgICAgICAgICAgIC AgICAgICAgICAgICAgICAgICAgDQogICAgICAgICAg ICAgICAgICAgICAgICAgICAgICAgICAgICAgICAgICAgICAgICAgICAgICAgICAgICAgICAgICAgICAg ICAgICAgICAgICAgICAgICAgICAgICAgICAgICAgDQogICAgICAgICAgICAgICAgICAgICAgICAgICAg ICAgICAgICAgICAgICAgICAgICAgICAgICAgICAgIC TpLOMbZZZrGCJdGCWdUENqEOJqUOUxIFIrLKEqYXOzIVUsEOLkPLOyWMg9X8ckAYSqLFLgKG3cFDf3Ct 8+NNaTCiRkKFI1vfTueP8CEA6ck2YnGXtdPUVva7TtTAz7BN5VDMFhKRkyLZ2LCShqzf4PQPJxHFBvmV IKb7mkDeJfVNF9KUIuTzlxNI1UEPDmX1blkiUqMMMw ADCINSjsKVMMUCleUFKKXQLcUZRgJlIgNnEvAXVqHDMhYHFLMLH0PMRqPmEmBRLrKBNuJgPiRBODJTZm PQWuJtUjWWslBZ0Jx8IytDZhJS7QIo2AIoVyNF2lxg8WVFUfMKJpYehLFwd3KLyhZN7JmWBqzXR4VVXi SVMTPpLuC3wfw0KuLRTkXDCVTGfaVU5Tl2UklJNxLL o+Gj3GSS2zi6DbEHr3KZVkHN6yxt7FXJcDCvOlH1BoaYicYXLoz1VxLUSeUHGIfW8yTLC6ETY9RMuicI SzjiYqMQOYFRSrpBeiptadZCNlJOYuDT9oNd2wOJQgZWPtErH7IDZBND4DZIRmWLHdiBQvPSLuSJDNSW 8ZBYczSEV8ACCcrvZhrHMdNDdgHF4OCAEuxnRxFAJq MCBSDQo+My2PZL2hs0BgCAv7PdRdXS3xek9ZLGfCKmTjO4Z4nMMuT7R8PUgiTj4PVPLlUHHaWXLrRJAZ ODwkFK5TBB4bscA2HX1KfFSrVQVgFFAgrSLwMZu7A01kaERaAMotNM9DJGH+Dillon+Tk6UFGSsMJKkMPQi IlIvWZEWVaFxI6XeD6LXw8AkX1PcUS23tLurfdZtOV odIU5KUV6aOIWkGBSXHO4OiYHtfP9loqZ6SNEpVVPHKeZsR27edZNqHRNqYCJrZQZtGn0MRYQxV1Ffus CmvNwqejFhOKUgWCIIWW3DMZbfzjUqmVSxfXlxAA30zCrzDX7AHk3CXzSjNA1hrp9GiVZdDc2VQNQ9Ip 4VZDZzRPTfGCTqERU4YFQlPgNcUXqyQQMiRJKhZFL6 XPZmADYfOW7IFuBdMUHzQzRdXqhhWDQqKMOypw9UBBZsONZ5Qev9DvBsKYXvBUAtUVrcUEZgZANjKQN2 XILzRSGbXL9GZxLkQZKvICP4BqemLGQsRUZowo7UOVPuLVVcHJp3ACOmJJGgTFOnRFwdYDDzVJC9Tnt6 GCHfOVTpWS4FUhWrICBwNLq4OTWbOZPyYREuca9TCD BwMUXuWnj3WBZxQPYeFLZdNUlkCMIxSRZhNUXwVSNkRZKhQK0CPwSbKWCyUEZ5HZaaPKLhNISsur3YLQ EoGCYvLRxtKgTgVVNkIQDwMZvbYDEcMUPdUKP6UCJgSYUfVR6DCrUlUYApVxLoLJQkOCIoRHAaer6UTE AhIJCyHeqcSYGpSJPkMRFgABphEBBnPNL8UNR3DBMn JXLhMJ8KCrSdCUMqUtm9RETdWLZdZYIpkv9FYWDwLTYjRsj5GOQpXGLfXNEnYTvfMPMfRNAgVKmkQKPc SEVtGP1JPqEfMHLfAvT3WKKlCLMhLIRlvu6NOXTmYRQwUGMbKYXkHZDmOOEpVEnbOGGhWND8LPF9JFBl MWOpHS2RPqVnJOJbKdC5LZTmMQNgFSYhht1LTSImJK EyZmRgNYGkLQBxEISgTKbuWUVcWGJ7PLwuXKFrFQAtHR0QUqFoTITvEdl2IxyqTSObYBTlob1GLJAkYO HiPwi2IMBeEVQiXXNcZAjzSTWaKOI7NJAxLAHjGFIqDC3EXvYcJWOtWvrmRBMrQEIfGMHavn4UUYLgHQ AzOTMwMCAwMDAwMCBuDQowMDAwMDQwMjYwIDAwMDAw DQ5GXxWbUDRoXFX9PWtlFXCpENRhcf9ZFWFwEUL0WLO9LZWhUZEhWAVoTDuyNSAgQTTnNoNvTWZnGKMz YY3JUiIsYKWyYDV3XVFfAFFyRGMptu2KGKOqBQI6YAq4BPHvAAOxVDOuBRsmFLHcFGUjUGCnCDGgOVXe TI8JNaCbDWWtMTWgLgEaYLUeKCCtwd2TKIFdPBD9Al P3NyYbWGCgGXXzRXghMPJjBHW3HrBgUWWsLGQfCY1VWiUqCFWoZVAcUrPaMKCeMOAzbh2SZCClFGU8OO V3JLLfHMJvQQStYWoyIFUdMNO6FEU4KVVbGHKrXZ9BRgNfUFBhVIV6YYGmWXDmAJAhxd3ICCImMDN8IC GjKWYqJCEvPGMrZZuaMJBuWCGdNRRbJFQyHIWyBR4V HfSnRYWcEdPiGFxqNXTtKOYbnx5WOUKlPFE5HKW1HLFaYQJxXFPaOSptMYUmGBHbHEN5ESUvCMGhGZ8X RiWyJHNlSaZ5UTbdUDVlGHUpjn2JBNIbQUG4PBd6MVEzLMAwSOIiTOmoUFJaDEWbFSC4CQPfHDGzVW2L CzBvEXFmXzA0YeKcCKDxKATpbe6FGLFsRUM6ZTNrKp FlONSiYLPlSYzkFFPsGCY4LIr8JWNpVTJtGH2YArAyPZYvZrMbINQjBULmSNBhbu3AfRLwxFhldt9AIZ uFJq3DrNxlUQZ1SNpyHv8wvWL5UaGkJBLKFi5IbhGyYPCzFQMUWHdjLDIfEWT4TdErEbKdJIYtPpR5D8 WsBWqlKqFmBAZmAHWxObNwPoS3Qax8E0YlDaX7OHJp CZTkTDIyLJTzDbZ1FHSzHRSqPWB+QO0jXXr+Dt0Dm6HzztH9cuIuYCr8MOV4Op2QHJEIK5QKEw== ID Date Data Source [id number] 02/23/2021 04:37:10 PM EDT [facility] Name Value Range Interpretation Code Description Data Stephanie [facility](s) Supporting Document(s) History and Physical [facility] UBEKNu5tYiBWPpYj58/VQOfoKSTwe0IhEFppNXv4YYcfQMIrP2AyRAG2qT1gVFX5RKfVTjKxSeFxAQY2 lbm [file] JO6Dv+mq1etZsOGvO0AAfbxECUhlGBB+4ODkCev/[place] [file] AgICAgICAgICAgICAgICAgICAgICAgICAgICAgICAgICAgICAgICAgICAgICAgICAgICAgICAgICAgIC AgICAgICAgICAgICAgICAgICAgICAgICAgICAgICAg DQogICAgICAgICAgICAgICAgICAgICAgICAgICAgICAgICAgICAgICAgICAgICAgICAgICAgICAgICAg ICAgICAgICAgICAgICAgICAgICAgICAgICAgICAgICAgICAgICAgICAgDQogICAgICAgICAgICAgICAg ICAgICAgICAgICAgICAgICAgICAgICAgICAgICAgIC AgICAgICAgICAgICAgICAgICAgICAgICAgICAgICAgICAgICAgICAgICAgICAgICAgICAgDQogICAgIC AgICAgICAgICAgICAgICAgICAgICAgICAgICAgICAgICAgICAgICAgICAgICAgICAgICAgICAgICAgIC AgICAgICAgICAgICAgICAgICAgICAgICAgICAgICAg ICAgDQogICAgICAgICAgICAgICAgICAgICAgICAgICAgICAgICAgICAgICAgICAgICAgICAgICAgICAg ICAgICAgICAgICAgICAgICAgICAgICAgICAgICAgICAgICAgICAgICAgICAgDQogICAgICAgICAgICAg ICAgICAgICAgICAgICAgICAgICAgICAgICAgICAgIC AgICAgICAgICAgICAgICAgICAgICAgICAgICAgICAgICAgICAgICAgICAgICAgICAgICAgICAgDQogIC AgICAgICAgICAgICAgICAgICAgICAgICAgICAgICAgICAgICAgICAgICAgICAgICAgICAgICAgICAgIC AgICAgICAgICAgICAgICAgICAgICAgICAgICAgICAg ICAgICAgDQogICAgICAgICAgICAgICAgICAgICAgICAgICAgICAgICAgICAgICAgICAgICAgICAgICAg ICAgICAgICAgICAgICAgICAgICAgICAgICAgICAgICAgICAgICAgICAgICAgICAgDQogICAgICAgICAg ICAgICAgICAgICAgICAgICAgICAgICAgICAgICAgIC AgICAgICAgICAgICAgICAgICAgICAgICAgICAgICAgICAgICAgICAgICAgICAgICAgICAgICAgICAgDQ ogICAgICAgICAgICAgICAgICAgICAgICAgICAgICAgICAgICAgICAgICAgICAgICAgICAgICAgICAgIC AgICAgICAgICAgICAgICAgICAgICAgICAgICAgICAg EQVrYSMoLWBaMPl3V8kvLSXgDNZyCN0tPEp6Hs9+TJeATbFtBRV3gvQvvD2BAP7fm4WwZLodHRLkh1Nk LTi3PG6OCWHqMFiaCG7WDLkdag6FKIXgMPSsaQIYl4clLwEyGQS6XYYtAqijKV0WZLXbE8qzklVjRANp KTTJPBekRWGTZRiiMSXSHWXoQSZkBaEvAFzrYT5Gi6 QvwLC7MPe+Au7JSC7xk3ChUYinQYVmAT4thx6CWMfMTrCwY9AkjbK9CSI5EQUgTu2GUXVsSBWsbRVnGJ LkJUFHDaFwB1FnoB20YORNNk1+TLrwvpCaUtdVFxB8BZKyl2SvVAg4JC1TRBIkVUw3zVVbIKGZZNE6AI PpWQ9kTCFVrQDfTCIbAPESBFF5IMgmEKWaJeHiBPHd OKhvLfOCDUcROiWfN1Msx1DfHaM0CMElPkLpJSzaXOHxLrG5CP30eIyyZQ0UNSEtSMHqSV60HAZ8CRHy Ed8YBf5NSeUgPR5wno5IXhKaOXIzWhlCHny8WVnsLJ1KmSNvJ0WffSBlz3dFGjSxE1EWCNUaMEPqJh3B OFPqSfQmQFBwMCsnLA1dSSYgDKDKfZfdgkS0YT9YKE 2bwiJmHR3ZBqJnKz5lLq3TBdByW9BuD5GpDWTwEDBDPGnyNG2CFFhtCF7aTT8Nm7UAwNBjgQ5ogx0EYQ YbCPFgTbysug6UJszbS8K1iOlxWHRzCgBzWILBBRjkRM6RYTFwLAB3VWDeKtXgHQPJKsNrN32xTS6VA9 Nce01cIgP1WHJnRcCkFRjrIP12dDmoomEjrPRqdDju XW5VXd1+ZObnmeVgLleFTixuLWTWBtOaZegXMoIuMLArIFNkYXVvYoB8VzBrHx8JQKYnDXJkAQCfKqAo WMSzBKVjDZnjYSPsTCOxEWTiKTGdDENqFW5XRdVcNZLoDsK4TqrqQUGdHVQpyg1MOOVkUUQeOSU3SwZq DWUyPIVsMOwtQATtAKFzBZraMHLlOMFnWF0LUmZdIM NnJZNqKNmxVHAiCMYcno0MQAAhHLOaMFu9JSNuWXPhLWEsRWdpBUEnLAF8EPkyLFNlTSUgSJ1CIfLbUX XvFZo6UpVxIOJcRVGjtz7ZINJdVWPjZNf6KKZkDFCnICLfZZhlJEPkKNOjXIT6JZBiHDPzFA4CVyIaEQ TxQOYsRwNkCPMgDGPayo8ECDGxGROsGkV7DXJdIXQh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 Detox / Rehab Admissions:None. Current Outpt Alcohol or Substance Abuse Services: None.09:21 Patient presents to Emergency Department with the following symptoms kfwithin the past 2 weeks: Agitation, Anger, anxiety, depressed mood,labile mood, poor impulse control, sleep disturbance - insomnia,suicidal ideation with no plan.09:21 Objective: Patient is cooperative, Speech is normal. Affect is kfappropriate. Mental status exam: Patients appearance is appropriate,Patient's behavior is normal, Speech is normal. Affect isappropriate. Mood is appropriate. Perception is normal. Appetite isnormal. Memory is good. Energy level is normal. Content of thought isnormal. Thought Process is intact. Cognitive level is Oriented toperson,place and time. Insight / Judgment is fair. Rapport withinterviewer is good. Suicidal Ideation: Vague. Homicidal Ideation:Denies.09:50 Consultation: Psych MD informed of patient's status at 09:45, ED MD kfnotified of patients status at 09:53. Disposition: Medically clearedfor disposition by Dr Levy. Psychiatric Consult is performed byphone with Dr Oneill\\ The patient is admitted to [facility] once abed becomes available or to transfer to another facility.09:53 Legal Status: Patient's legal status will be Director of [facility] kfServices: 9.37. DSM-V DX [place] I diagnosis: Bipolar D/O, depressedAxis II diagnosis: Deferred [place] III diagnosis: None. [place] IVdiagnosis: poor coping. [facility] Admission Criteria: The patient requirescontinuous observation and/or control to protect self, others orproperty. The patient's care requires a multi-modal treatment planunder close supervision and coordination due to the complexity andseverity of the patient's symptoms. The patient requiresadministration and monitoring of psychoactive medications by skilledmedical providers due to the side effects of the psychoactivemedications or significant dosage adjustments. Awaiting referralhospital acceptance. The patient is not a cashier self service gasoline or militarydependent. [place] Suicide Severity Rating Scale: Suicidal IdeationRating 5; Intensity of Ideations Rating 25; Suicidal Behavior Rating1.16:43 Narrative Pt has been accepted for transfer to [facility]. kfDoctor to doctor have been completed by transferring physician and receiving physician Dr. Keith. RN to RN completed priorto transfer. Transportation arranged through [employer] for 17:00.Psych:02/1222:52 Subjective: Delusions are denied, Hallucinations are denied Having fr8yakurccl of suicide. Denies suicidal plan. Objective: Patient iscooperative, Speech is normal, Affect is appropriate, Patient hasmutilated themselves by pat ient has scabbed over self inflicted wouldon left wrist states she did that 3 days ago. Interventions: Removedpersonal items and placed in bag. Patient placed in hospital gown.Searched person for dangerous items. Urine collected and sent forurine drug test. Observation Level Level 3 Sitter needed. Providernotified. Fortunato Bhat [facility] Level 3 order placed.22:59 Interventions: Belonging list filled out. aj5Ufyir Signs:22:48 BP 123 / 67; Pulse 80; Resp 18; Temp 97.5; Pulse Ox 97% on R/A; qe1Yrpoao 104.33 kg (R); Height 5 ft. 6 in. (167.64 cm) (R); Pain 0/10;02/1309:40 BP 124 / 56; Pulse 74; Resp 18; Temp 97.8; Pulse Ox 97% ; Pain 0/10; wd117:22 BP 137 / 64; Pulse 67; Resp 16; Temp 98; Pulse Ox 97% ; ef108/1222:48 Body Mass Index 37.12 (104.33 kg, 167.64 cm) cm4ED Course:02/1222:45 Patient arrived in ED. cm422:46 Triage completed. cm422:54 Patient has correct armband on for positive identification. Placed in bq7wuir. Bed in low position. Sitter at bedside. Verbal reassurancegiven. Pillow given.02/1300:52 No apparent distress. Resting quietly. kk300:52 Sitter at bedside. kk301:11 Loida Hansen, JOSE LUIS is Primary Nurse. fw01:35 No apparent distress. Appears to be sleeping. kk301:45 Sitter at bedside. kk302:25 Ramón Levy MD is Attending Physician. na102:30 No apparent distress. Appears to be sleeping. kk302:30 Sitter at bedside. kk303:26 Sitter at bedside. kk303:27 No apparent distress. Appears to be sleeping. kk304:39 No apparent distress. Resting quietly. kk304:39 Sitter at bedside. kk305:55 No apparent distress. Appears to be sleeping. kk305:55 Sitter at bedside. kk306:31 No apparent distress. Appears to be sleeping. cm408:02 No apparent distress. Resting quietly. wd108:02 Sitter at bedside. Diet tray given. wd109:41 No apparent distress. Resting quietly. wd109:41 Sitter at bedside. wd111:06 No apparent distress. Resting quietly. wd111:06 Sitter at bedside. Diet tray ordered. wd111:57 Diet tray given. ef112:59 Attending Physician role handed off by Ramón Levy MD se12:59 Kylie العلي MD is Attending Physician. se13:19 EKG done. (by ED staff). Reviewed by Kylie العلي MD. c13:54 No Physician assisted procedures completed. ef1 Administered Medications:09:41 Drug: Loratadine 10 mg Route: PO; wd109:41 Drug: Singulair 10 mg Route: PO; wd112:05 Follow up: Response: No adverse reaction ef109:41 Drug: Propranolol 10 mg Route: PO; wd112:05 Follow up: Response: No adverse reaction ef109:41 Drug: sertraline 150 mg Route: PO; wd112:04 Follow up: Response: No adverse reaction ef109:41 Drug: Topiramate 75 mg Route: PO; wd112:04 Follow up: Response: No adverse reaction ef109:42 Drug: Latuda 80 mg Route: PO; sq0Iixunya:13:10 ER care complete transfer ordered by . se13:54 Disposition: Transferred by ambulance: to [facility] ef113:54 Condition: stable, Provider notified of abnormal vital signs.13:54 Discharge instructions given to patient, Instructed on need christopher, Demonstrated understanding of instructions.13:54 Discharge Assessment: Patient verbalized understanding of dispositioninstructions. Patient has no functional deficits.16:27 Disposition: Report called to Chelsey AMAYA ef117:23 Patient left the ED. bb3Hwaqonoljd:Kylie العلي MD MD seDow, Wendy, RN RN ud7Jo-VchtnbwRamón Anguiano MD MD na1Zakia [place], PSA PSA Ami Sow, RN RN sz1RoxafRatna mccallum, RN RN gi3EfvkahvkUsha vp8ZmdjujhyiWendy Severino RN RN or9VmaoLoida Hansen RN JOSE LUIS fwEdd Sotomayor cCorrections: (The following items were deleted from the chart)03:07 02:42 Mental health consult is initiated at 02:42. sm8 sm809:20 09:10 Subjective: The patients chief complaint is SI; Depression. PT kfpresents to the ED with [employer] police due to the pt verbalizingthat she was experiencing SI. Pt continues to express having thoughtsof suicide with no current plant. kf Name Value Range Interpretation Code Description Data Stephanie rce(s) Supporting Document(s) ID Date Data Source [id number] 02/19/2021 09:17:00 AM EDT [address] HEALTH CONSULTPATIENT NAME: YARELI HATCH MR#: [id number] PHYSICIAN:AUTHOR: Dylan Aquino DATE: #: ERPATIENT : 00HistoryReason for consultTo determine possible psychiatric inpatient admissionPast Psych/Medical HistoryAllergiesCoded Allergies:haloperidol (From HALDOL) (06/15/20)risperidone (08/04/19)ExamVital EwypeYerh-lo-cgpn consult:Patient was seen by myself and the clinical coordinator Alexa Whitley in theemergency department this a.m. Patient presented as happy and content.Patient stated that she came to the emergency department as she was having somesuicidal thoughts, denied having a plan, and was having some vague homicidalideations towards her mother. While speaking with Alexa and myself patientwas smiling and giggling. Patient however was malodorous which sheacknowledges and did request to have a shower. Patient stated that she justrecently burned herself and upon examination of her arms after she pointed outwhere she said she burned herself there appeared to be no evidence of mccloud,s uch as blistering of the skin broken skin etc. Patient was asked as to whatshe would like to do. She then said it depends on what you guys are going todo. She was explained that we cannot give her our plan of action unless weknow what she is feeling, thinking, and her intentions. After discussing bothadmission and discharge potential/plan patient stated she was not suicidal andwished to be discharged back to [facility] where her home is. Patient did inquire atone point during the consult if [facility] was going to discharge her from theirservices. Patient was reassured this was not going to occur and that in factthe staff stated to us that she has been in the hospital more than she has beenat the residence. Staff from [facility] informed Alexa salesisabel that Yareli spendsmost of her time in her room and does not engage with the staff or peers withinthe home. It was also reported that Yareli is usually in her room and thenceciy will see her as she is walking out the door and getting into a police carwhich she has called to bring her to the hospital. This information obtainedfrom staff at [facility] was reiterated to Marilu and she agreed with thisstatement. She agreed that she would go back to [facility] and try to engage withstaff and get to know them and allow them to get to know her. Patient didstate that she was nervous of doing this and that is why she keeps coming backto the hospital.Patient denies having any active homicidal ideations at the time of the consulttowards her mother or anybody else. Patient denies having any active suicidalideations, denies having any active plans of suicide, and denies any intent orurge to harm herself or end her life. Patient stated [facility] and attempt to work with the staff and be more open to accepting theirhelp. Patient denies feeling depressed or hopeless. Patient presented as goaloriented and ready to go back to the [facility] environment.Plan:Patient will be discharged back to her residential setting of [facility]. [facility] hasbeen made aware of this and there is staff along with staff from mental healthdiscussed and agreed with this discharge plan. Patient has been encouragedthat if she was to become suicidal again or having thoughts or urges to harmothers that she is to come back to the emergency department for evaluation;patient agreed with this discharge plan. No medication adjustments areindicated at this time.Mental Status ExaminationSpeech normalThought Process no impairment, logicalThought Content normal, DENIES SUICIDAL/HOMICIDAL IDEATIONSAssociations intactAbnormal or Psychotic Thoughts no impairmentPatient's Judgement fairInsight fairReality Testing intactDecision Making Capacity intactMental StatusOrientation time, place, personConcentration normalFund of Knowledge: awareness of current eventsMood calmAffect appropriateData ReviewLaboratory DataRecent LabsTest Result Date TimeChemistrySodium (136 - 147 mmol/L) 142 02/19 0241Potassium (3.5 - 5.1 mmol/L) 4.1 02/19 0241Chloride (99 - 110 mmol/L) 110 02/19 0241Serum Bicarbonate (20 - 33 mmol/L) 24 02/19 0241Anion Gap (10.0 - 20.0) 12.1 02/19 0241BUN (7 - 23 mg/dL) 18 02/19 0241Creatinine (0.500 - 1.300 mg/dL) 0.698 02/19 0241Estimated GFR/1.73 m2 (mL/min) > 60 02/19 0241Glucose (70 - 110 mg/dL) 108 / 0241Calcium (8.3 - 10.7 mg/dL) 8.4 02/19 0241Total Bilirubin (0.1 - 1.1 mg/dL) 0.3 / 0241AST (6 - 38 U/L) 19 02/19 0241ALT (6 - 54 U/L) 41 02/19 0241Alkaline Phosphatase (45 - 117 U/L) 118 H 02/19 0241Total Protein (6.0 - 7.8 g/dL) 7.4 08/ 0241Albumin (3.5 - 5.0 g/dL) 3.6 08/ 0241Globulin (2.3 - 3.5 g/dL) 3.8 H 08/ 0241Albumin/Globulin Ratio (1.0 - 2.5) 0.9 L / 0241HematologyWBC (4.0 - 10.5 x10E3/uL) 8.83 08/ 0241RBC (4.20 - 5.40 x10E6/uL) 4.16 L 08/ 0241Hgb (12.0 - 16.0 g/dL) 12.4 08/ 0241Hct (37.0 - 47.0 %) 37.6 08/ 0241MCV (81.0 - 99.0 fL) 90.4 08/ 0241MCH (27.0 - 31.0 pg) 29.8 08/ 0241MCHC (32.7 - 35.6 g/dL) 33.0 08/ 0241RDW (11.5 - 14.0 %) 12.2 08/ 0241Plt Count (150 - 450 x10E3/uL) 227 08/ 0241MPV (6.9 - 9.5 fl) 9.3 / 0241Immature Gran % (Auto) (0.1 - 2.0 %) 0.3 / 0241Neut % (Auto) (34 - 64 %) 58.2 / 0241Lymph % (Auto) (25 - 45 %) 32.5 08/ 0241Mono % (Auto) (1.7 - 10.6 %) 6.9 08/ 0241Eos % (Auto) (0.4 - 7.0 %) 1.9 / 0241Baso % (Auto) (0.1 - 2.0 %) 0.2 / 0241Abs Immat Gran (auto) (0.0 - 0.1 x10E3/uL) 0.03 08/ 0241Absolute Neuts (auto) (1.2 - 7.6 x10E3/uL) 5.13 / 0241Absolute Lymphs (auto) (1.0 - 3.5 x10E3/uL) 2.87 02/19 0241Absolute Monos (auto) (0.1 - 1.0 x10E3/uL) 0.61 02/19 0241Absolute Eos (auto) (0.1 - 0.7 x10E3/uL) 0.17 02/19 0241Absolute Basos (auto) (0.0 - 0.1 x10E3/uL) 0.02 02/19 0241Nucleated RBC % (auto) (0 %) 0 02/19 241ToxicologySalicylates (0.0 - 20.0 mg/dL) < 1.7 02/19 241Opiates Screen (NEGATIVE) NEG 02/19 0455Methadone Screen (NEGATIVE) NEG 02/195Acetaminophen (0 - 30 ug/mL) < 2.0 02/19arbiturate Screen (NEGATIVE) NEG 02/19 0455Phencyclidine Screen (NEGATIVE) NEG 02/19 0455Amphetamines Screen (NEGATIVE) NEG 02/19 0455Benzodiazepines (NEGATIVE) NEG 02/19 0455Cocaine Screen (NEGATIVE) NEG 02/19 0455Cannabinoids (NEGATIVE) NEG 02/19 455Ethyl Alcohol (NONE DETECTED g/dL) 02/19 241UrinesUrine Color Yellow 02/19 455Urine Appearance Turbid 02/19 455Urine pH (5.0 - 8.0) 5.5 02/19 455Ur Specific [place] (1.010 - 1.025) 1.030 H 02/19 455Urine Protein (Negative) Negative 02/19 455Urine Ketones (NEGATIVE) Negative 02/19 455Urine Blood (NEGATIVE) Non-hemolyzed Trace 02/19 455Urine Nitrite (Negative) Negative 02/19 455Ur Bilirubin Confirm (NEGATIVE) Negative 02/19 455Urine Urobilinogen (0.2 - 1.0 mg/dL) 1.0 02/19 455Urine Leukocytes (Negative) Negative 02/19 455Urine Glucose (NEGATIVE) Negative 02/19 455Urine HCG, Qual (Negative) Negative 02/19ssessment/PlanDiagnosis1. Bipolar disorderCoordination of care provided with nursing staff, treatment team, social work,physician'sDATE SIGNED: 02/19/21 Electronically SignedTIME SIGNED: 1157 DYLAN CABRERA Name Value Range Interpretation Code Description Data Stephanie rce(s) Supporting Document(s) ID Date Data Source [id number] 02/19/2021 05:49:00 AM EDT [facility] Name Value Range Interpretation Code Description Data Stephanie rce(s) Supporting Document(s) PCP VISTA NEG NEGATIVE [facility] MINIMUM LEVEL OF DETECTION IS 25 ng/ml BENZODIAZEPINES NEG NEGATIVE [facility] MINIMUM LEVEL OF DETECTION IS 200 ng/ml COCAINE VISTA NEG NEGATIVE [facility] MINIMUM LEVEL OF DETECTION IS 300 ng/ml AMPHETAMINES NEG NEGATIVE [facility] MINIMUM LEVEL OF DETECTION IS 1000 ng/ml BARBITURATES NEG NEGATIVE [facility] CUTOFF CONCENTRATION IS 200 ng/ml CANNABINOIDS NEG NEGATIVE [facility] CUTOFF CONCENTRATION IS 50 ng/ml METHADONE VISTA NEG NEGATIVE [facility] MINIMUM LEVEL OF DETECTION IS 300 ng/ml OPIATE VISTA NEG NEGATIVE [facility] MINIMUM DETECTION LEVEL IS 300 ng/ml ID Date Data Source [id number] 02/19/2021 05:07:00 AM EDT [facility] Name Value Range Interpretation Code Description Data Stephanie rce(s) Supporting Document(s) HCG QUAL [facility]INE [facility] Date Data Source [id number] 02/19/2021 05:07:00 AM EDT [facility] Name Value Range Interpretation Code Description Data Stephanie rce(s) Supporting Document(s) URINE COLOR Yellow [facility] UAPR Turbid [facility] UGLU Negative NEGATIVE [facility] URINE BILIRUBIN Negative NEGATIVE [facility] UKET Negative NEGATIVE [facility] USG 1.030 1.010-1.025 [facility] UBLO Non-hemolyzed Trace NEGATIVE [facility] spital UpH 5.5 5.0-8.0 [facility] UPRO Negative Negative [facility] UUB 1.0 mg/dL 0.2-1.0 [facility] UNIT Negative Negative [facility] ULEU Negative Negative [facility] ID Date Data Source [id number] 02/19/2021 03:08:00 AM EDT [facility] Name Value Range Interpretation Code Description Data Stephanie rce(s) Supporting Document(s) SALICYLATE < 1.7 mg/dL 0.0-20.0 [facility] ID Date Data Source [id number] 02/19/2021 03:08:00 AM EDT [facility] Name Value Range Interpretation Code Description Data Stephanie rce(s) Supporting Document(s) ACETAMINOPHEN < 2.0 ug/mL 0-30 [facility] ID Date Data Source [id number] 02/19/2021 03:08:00 AM EDT [facility] Name Value Range Interpretation Code Description Data Stephanie rce(s) Supporting Document(s) ETOH NONE DETECTED [facility] NONE DETECTED ID Date Data Source [id number] 02/19/2021 03:08:00 AM EDT [facility] Name Value Range Interpretation Code Description Data Stephanie rce(s) Supporting Document(s) GLU 108 mg/dL 70-110 [facility] Patients taking Sulfasalazine may have f alsely depressedGlucose levels. Patients taking Sulfapyridine may havefalsely elevated Glucose levels. Patients should be drawnfor Glucose before the initial administration of eitherdrug. BUN 18 mg/dL 7-23 [facility] CRE 0.698 mg/dL 0.500-1.300 [facility] GFR > 60 mL/min [facility] CHLORIDE 110 mmol/L 99-110 [facility] NA 142 mmol/L 136-147 [facility] POTASSIUM 4.1 mmol/L 3.5-5.1 [facility] TCO2 24 mmol/L 20-33 [facility] ANION GAP 12.1 10.0-20.0 [facility] CA 8.4 mg/dL 8.3-10.7 [facility] ALKALINE PHOS 118 U/L 45-117 [facility] TP 7.4 g/dL 6.0-7.8 [facility] ALB 3.6 g/dL 3.5-5.0 [facility] ESRD Dialysis patient Albumin reference range: 2.9-4.4 g/dL GL 3.8 g/dL 2.3-3.5 [facility] A/G 0.9 1.0-2.5 [facility] T. BILIRUBIN 0.3 mg/dL 0.1-1.1 [facility] [place] Total Bilirubin is n ot recommended forpatients undergoing treatment with eltrombopag (Promacta)due to the potential for falsely elevated results. ALTI 41 U/L 6-54 [facility] Patients taking Sulfasalazine and/or Sul fapyridine may havefalsely depressed ALT levels. Patients should be drawn forALT before the initial administration of either drug. AST 19 U/L 6-38 [facility] Patients taking Sulfasalazine and/or Sul fapyridine may havefalsely depressed AST levels. Patients should be drawn forAST before the initial administration of either drug. ID Date Data Source [id number] 02/19/2021 02:51:00 AM [facility] Name Value Range Interpretation Code Description Data Stephanie rce(s) Supporting Document(s) WBC 8.83 x10E3/uL 4.0-10.5 [facility] RBC 4.16 x10E6/uL 4.20-5.40 [facility] Hemoglobin 12.4 g/dL 12.0-16.0 [facility] Hematocrit 37.6 % 37.0-47.0 [facility] MCV 90.4 fL 81.0-99.0 [facility] MCH 29.8 pg 27.0-31.0 [facility] MCHC 33.0 g/dL 32.7-35.6 [facility] RDW 12.2 % 11.5-14.0 [facility] Platelet count 227 x10E3/uL 150-450 [facility] ital MPV 9.3 fl 6.9-9.5 [facility] Neutrophils 58.2 % 34-64 [facility] Lymphocytes 32.5 % 25-45 [facility] Monocytes 6.9 % 1.7-10.6 [facility] Eosinophils 1.9 % 0.4-7.0 [facility] Basophils 0.2 % 0.1-2.0 [facility] Imm. Gran. 0.3 % 0.1-2.0 [facility] Abs. Neutro. 5.13 x10E3/uL 1.2-7.6 [facility] Abs. Lymph. 2.87 x10E3/uL 1.0-3.5 [facility] Abs. [place]. 0.61 x10E3/uL 0.1-1.0 [facility] Abs. Eosin. 0.17 x10E3/uL 0.1-0.7 [facility] Abs. Baso. 0.02 x10E3/uL 0.0-0.1 [facility] Abs. Imm. Gran. 0.03 x10E3/uL 0.0-0.1 N [facility] spital ANRBC% 0 % 0 [facility] ID Date Data Source [id number] 02/19/2021 10:15:00 AM EDT [facility] Physician DocumentationClaxlexy-Naveen Hinkle edical CenterName: Yareli DuvallAge: 20 yrsSex: FemaleDOB: 2000MRN: [id number] Date: 02/19/2021Time: 02:28Account#: [id number] MD: NONE, - Per PatientED Physician Richie العليposition Summary:02/19/21 09:20Discharge OrderedLocation: Home Self Care seProblem: an ongoing problem seSymptoms: are unchanged seCondition: Stable seDiagnosis- Bipolar disorder, unspecified seFollowup: se- With: Private Physician- When: as instructed- Reason: Recheck today's complaints, Continuance of careDischarge Instructions:- BIPOLAR DISORDER se- Discharge Summary Sheet [id number]:- Medication Reconciliation se- Medication Reconciliation Form - 2nd Copy seHPI:02/1104:51 This 20 yrs old White Female presents to ER via Police with bl6kybofeizte of Psych Problem.04:51 The patient presents to the emergency department with PT[facility]. PT. HAS BEEN DEPRESSED & HAS SI WITH PLAN TO SELFHARM OR DROWN SELF, SHE HAS SMALL SUPERFICIAL SKIN BURN LT. 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 Onset: The symptoms/episode began/occurred just priorto arrival. Past psychiatric history: Prior diagnosis: bipolardisorder. Associated signs and symptoms: The patient has no apparentassociated signs or symptoms. Severity of symptoms: At their worstthe symptoms were moderate.ARNP:02:34 LMP N/A - Irregular menses ki9Rspnkwzpkq:- Allergies: Haldol; Risperdal;- Home Meds:1. ibuprofen 400 mg Oral tab 1 tab prn for headaches2. Latuda 80 mg oral tab 1 tab once daily3. lurasidone 80 mg oral tab 20:004. montelukast 10 mg oral tab 1 tab once daily5. pravastatin 20 mg oral tab 1 tab nightly6. prazosin 1 mg Oral cap nightly7. propranolol 10 mg Oral tab 1 tab twice per day8. sertraline 150mg oral tab once daily9. topiramate 75mg oral tab once daily10. trazodone 50 mg Oral tab 1 tab prn insomnia- PMHx: ADHD; ANXIETY; BIPOLAR DISORDER; Depressive disorder; PsychHx; ptsd;- PSHx: None;- Immunization history: Flu vaccine is not up to date.- Social history: Smoking status: Patient uses tobacco products,current every day smoker. ETOH status Denies use of ETOH.- Advance Directives:: None.ROS:04:54 Psych: Positive for depression, homicidal ideation, suicidal rn3zbcxoptq, Negative for drug dependence, alcohol dependence, auditoryhallucinations, visual hallucinations. All other systems are negative.Exam:04:55 Constitutional: This is a well developed, well nourished patient who na1is awake, alert, and in no acute distress. Head/Face: Normocephalic,atraumatic. Eyes: Pupils equal round and reactive to light,extra- ocular motions intact. Lids and lashes normal. Conjunctivaand sclera are non- icteric and not injected. Cornea within normallimits. Periorbital areas with no swelling, redness, or edema. Neck:Trachea midline, no thyromegaly or masses palpated, and no cervicallymphadenopathy. Supple, full range of motion without nuchalrigidity, or vertebral point tenderness. No Meningismus.Chest/axilla: Normal chest wall appearance and motion. Nontenderwith no deformity. No lesions are appreciated. Cardiovascular:Regular rate and rhythm with a normal S1 and S2. No gallops,murmurs, or rubs. Normal PMI, no JVD. No pulse deficits.Respiratory: Lungs have equal breath sounds bilaterally, clear toauscultation and percussion. No rales, rhonchi or wheezes noted. Noincreased work of breathing, no retractions or nasal flaring.Abdomen/GI: Soft, non- tender, with normal bowel sounds. Nodistension or tympany. No guarding or rebound. No evidence oftenderness throughout. Back: No spinal tenderness. Nocostovertebral tenderness. Full range of motion. MS/ Extremity:Pulses equal, no cyanosis. Neurovascular intact. Full, normal rangeof motion. Neuro: Awake and alert, GCS 15, oriented to person,place, time, and situation. Cranial nerves II-XII grossly intact.Motor strength 5/5 in all extremities. Sensory gr ossly intact.Cerebellar exam normal.04:55 Skin: SUPERFICIAL 4 X 2 CM FIRST DEGREE SKIN BURN WITH NO BLISTERS OROPENED WOUNDS, NO CELLULITIS..04:55 Psych: Behavior/mood is cooperative, depressed, Affect is flat,Oriented to person, place, time, Patient having thoughts of suicide.Patient having thoughts of homicide. Delusions/hallucinations are notpresent.Vital Signs:02:34 BP 115 / 75; Pulse 72; Resp 18; Temp 97.8; Pulse Ox 98% ; Weight ct6121.33 kg; Height 5 ft. 6 in. (167.64 cm);09:45 BP 131 / 84; Pulse 72; Resp 20; Temp 97.9; Pulse Ox 97% ; Pain 0/10; ef102:34 Body Mass Index 37.12 (104.33 kg, 167.64 cm) jw5GAM:02/1004:54 Data reviewed: vital signs, nurses notes, lab test result(s). na108/1103:30 Patient medically screened. na108/1102:37 Order name: Acetaminophen Level; Complete Time: 04:50 jw508/2:37 Order name: CBC with diff; Complete Time: 04:50 jw5082:37 Order name: CMP; Complete Time: 04:50 :37 Order name: ETOH; Complete Time: 04:50 :37 Order name: Glucose :37 Order name: Salicylate Level; Complete Time: 04:50 :37 Order name: Triage - Drug Screen; Complete Time: 09:20 :20 Interpretation: Within normal limits. :37 Order name: UA; Complete Time: 09:21 :21 Interpretation: Normal except: USG 1.030. :37 Order name: Urine HCG Qualitative; Complete Time: 09:: Interpretation: Within normal limits. :37 Order name: Diet - Mental Health Tray (call dietary); Complete Time: jw507::37 Order name: Belongings List; Complete Time: 09:45 :37 Order name: Document Weight and Height for BMI; Complete Time: 07::37 Order name: Mental Health Evaluation; Complete Time: 09:45 :37 Order name: Mental Health Level 3; Complete Time: 07::37 Order name: VS q shift; Complete Time: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 has traveled and has been ill in the past 3weeks? no Have you received the COVID vaccine? Yes. Ebola ScreeningInternational Travel No. Communicable Disease Screen: Negative forfever>/= 100 degrees Fahrenheit. Communicable disease screen isnegative. (-) rash or unusual skin lesion (-) travel/contact withtraveler (-) respiratory symptoms. Communication Speaks Cymro? Yes,is preferred language.03:14 Acuity: Triage 2 cm403:14 Method Of Arrival: Private Vehicle cm403:15 Acuity Assignment: Triage 2 tp0Xsjgkd Assessment:03:15 General: Appears in no apparent distress, Behavior is cooperative. ry2Lejnvw Screening: (1)Signs/symptoms infection No. Pain: Denies pain.PSS-3 Now I'm going to ask you some questions that we ask everyonetreated here, no matter what problem they are here for. It is part ofthe hospital's policy and it helps us to make sure we are not missinganything important. Over the past 2 weeks, have you felt down,depressed, or hopeless? Yes. Exhibiting depressed mood. Positivescreen for depression, provider aware of positive screening.Education provided. Over the past 2 weeks, have had thoughts ofkilling yourself? Yes, with current ideation. Active SuicidalIdeation (SI). Positive screen for suicide risk. MD provider aware ofpositive screening, suicide precautions implemented. ESS-6 ordered.In your lifetime, have you ever attempted to kill yourself? Yes,Between 1 and 6 months ago. Exhibits Lifetime Suicide Attempt (SA).Positive screen for suicide risk. MD provider aware, suicideprecautions implemented. ESS-6 ordered. Neuro: Level of Consciousnessis awake, alert. Respiratory: Airway is patent Respiratory effort iseven, Respiratory pattern is regular. Musculoskeletal: No deficitsnoted.Historical:- Allergies: Haldol; Risperdal;- Home Meds:1. ibuprofen 400 mg Oral tab 1 tab prn for headaches2. loratadine 10 mg oral TbDi once daily3. lurasidone 80 mg oral tab 20:004. prazosin 1 mg Oral cap nightly5. montelukast 10 mg oral tab 1 tab once daily6. pravastatin 20 mg oral tab 1 tab nightly7. propranolol 10 mg Oral tab 1 tab twice per day8. sertraline 150mg oral tab once daily9. topiramate 75mg oral tab once daily10. trazodone 50 mg Oral tab 1 tab prn gkkfvmge06. Latuda 80 mg oral tab 1 tab once daily- PMHx: ADHD; ANXIETY; BIPOLAR DISORDER; Depressive disorder; PsychHx; ptsd;- PSHx: None;- Immunization history: Flu vaccine is up to date.- Social history: Smoking status: Patient uses tobacco products,current every day smoker. ETOH status Denies use of ETOH.- Advance Directives:: None.Screenin:17 Abuse screen: Denies threats or abuse. Denies injuries from another. ei8Rrbjmxgrxel screening: No deficits noted. Offer of HIV testing:patient was previously offered screening. Fall Risk None identified.Assessment:03:17 Reassessment: No changes from previously documented assessment. cm405:30 Reassessment: Patient appears in no apparent distress at this time. kk306:18 Reassessment: Patient appears in no apparent distress at this time. kk307:34 Reassessment: Appears manic with conversation and behavior, Ativan elissa hanna at bedside.Psychosocial:12:17 SAFE Act Report Not Completed. Intervention: Observation Level 3. kfMental health consult is initiated at 11:45. Referral Information:Evaluation referral is generated by a police agency: [place].The patient was referred for evaluation because pt had SI at thattime.12:18 Subjective: The patients chief complaint is SI; depression. Pt kfpresents to the ED with police. Pt called police herself as she hadbeen experiencing SI. Pt states that she initially called reachout,and they encouraged her to go to talk to [facility] staff with theseconcerns. Pt states that she could not find staff, so she calledpolice instead. Upon arrival, pt voiced having SI with the plan todrown herself. Pt now denies any suicidal ideations. PT states thatshe felt that she was having SI because her brother was bullying herover the phone. Pt states that because of this, she now has domesticviolence consult arranged for Wednesday. PT also expresses having anappointment with the [facility] on the as well. Pt describes utilizingcoping skills such as listening to music, coloring, and journalingwhen she is feeling depressed and suicidal. PT denies HI. Pt denieshallucinations and does not express delusional thoughts. PT deniesaccess to guns. Delusions are denied, Hallucinations are denied.Patient's mood is depressed.12:24 Patient reports history of anxiety, Bipolar Disorder, Depression, kfsuicide attempt: several attempts, most recently as an overdose on12/2020 Mental Health Admissions: several psychiatric admissions, ptwas [facility] in February 2021 CurrentOutpatient Mental Health Services: [facility]. Living Environment: Family /Home Support: Good The patient currently lives in a [facility] residence.The patient is single.12:26 Patient presents to Emergency Department with the following symptoms kfwithin the past 2 weeks: anxiety, depressed mood, labile mood, poorimpulse control, suicidal ideation with no plan.12:32 Objective: Patient is cooperative, Speech is normal. Affect is kfappropriate. Mental status exam: Patients appearance is obese,Patient's behavior is normal, Speech is normal. Affect isappropriate. Mood is appropriate. Perception is normal. Appetite isnormal. Memory is good. Energy level is normal. Content of thought isnormal. Thought Process is intact. Cognitive level is Oriented toperson,place and time. Insight / Judgment is fair. Rapport withinterviewer is good. Suicidal Ideation: None present. Denies.Homicidal Ideation: Denies.12:32 Notification to family of patient status is not currently needed or kfappropriate. Consultation: Psych MD informed of patient's status at11:50, ED MD notified of patients status at 12:33. Disposition:Medically cleared for disposition by Dr Bowman. Psychiatric Consultis performed by phone with Dr Almaguer The patient has a safe destinationwhich is PT will be discharged home to [facility]. [facility] Pt denies SI/HI. Pt will continue treatment through [facility] andupcoming appointments will be verified and expedited as needed. Pthas been provided with PSA and Reachout numbers and has beeninstructed to return to the nearest ED should problems continue orworsen.12:34 DSM-V DX [place] I diagnosis: Adjustment D/O Unspecified [place] II kfdiagnosis: Deferred [place] III diagnosis: None. [place] IV diagnosis: poorcoping. [place] Suicide Severity Rating Scale: Suicidal IdeationRating 3; Intensity of Ideations Rating 13; Suicidal Behavior Rating1.Psych:03:18 Subjective: Delusions are denied, Hallucinations are denied Having hj5mfemxlgv of suicide. Plan for suicide is to drown herself. Objective:Patient is cooperative, Speech is normal, Affect is appropriate.13:54 Interventions: Observation Level Level 2. fbgVital Signs:03:16 BP 117 / 96; Pulse 76; Resp 18; Temp 97.6; Pulse Ox 98% on R/A; px0Raadri 104.33 kg (R); Height 5 ft. 6 in. (167.64 cm) (R); Pain 0/10;10:26 BP 119 / 73; Pulse 74; Resp 17; Temp 98.0(O); Pulse Ox 97% on R/A; jlPain 0/10;13:53 BP 130 / 77; Pulse 76; Resp 16; Temp 97.8; Pulse Ox 96% on R/A; fbg03:16 Body Mass Index 37.12 (104.33 kg, 167.64 cm) kp6Qptxugv Coma Score:03:47 Eye Response: spontaneous(4). Verbal Response: oriented(5). Motor oi7Iguquzpm: obeys commands(6). Total: 15.ED Course:03:11 Patient arrived in ED. cm403:12 Anoop Bowman MD is Attending Physician. dk203:15 Triage completed. cm403:18 Patient has correct armband on for positive identification. Placed in sz4gebn. Bed in low position. Verbal reassurance given. Pillow given.03:20 Sitter at bedside. kk303:55 No apparent distress. Resting quietly. kk304:18 Valuables inventory done. mf304:18 Warm blanke t given. mf304:45 Sitter at bedside. kk304:49 No apparent distress. Appears to be sleeping. kk305:30 No apparent distress. Resting quietly. kk305:30 Sitter at bedside. kk306:18 No apparent distress. Appears to be sleeping. kk306:18 Sitter at bedside. kk307:35 No Physician assisted procedures completed. zs10:25 Bertha Garrison RN is Primary Nurse. jlAdministered Medications:07:32 Drug: Acetaminophen 975 mg [acetaminophen 325 mg tablet (3 tabs)] zsRoute: PO;10:27 Drug: sertraline 150 mg [sertraline 50 mg tablet (3 tabs)] Route: PO; jl10:27 Drug: Topiramate 75 mg Route: PO; jl10:27 Drug: Latuda 80 mg Route: PO; jl10:29 Drug: Propranolol 10 mg [propranolol 10 mg tablet (1 tabs)] Route: PO;jlOutcome:12:48 Discharge ordered by . af13:53 Disposition: Discharged to home ambulatory. fbg13:53 Condition: zzwbmeci83:53 Discharge instructions given to patient, Instructed on dischargeinstructions, follow up and referral plans. medication usage,Demonstrated understanding of instructions, medications.13:53 Discharge Assessment: Patient awake, alert and oriented x 3. Nocognitive and/or functional deficits noted. Patient verbalizedunderstanding of disposition instructions. Patient verbalizedunderstanding of disposition instructions. Patient has no functionaldeficits.13:54 Patient left the ED. fbgSignatures:Vincenzo Luis RN RN fbgFedorowicz, Arthur, MD MD afShantie, Zachary, RN RN zsZakia Cleveland, PSA PSA kfBertha Garrison RN RN jlKennedy, Derek, MD MD dk2Kelly, Ratna, RN RN gd6ImhdibtqqWendy Severino RN RN xt9EaqrbiMarilu Franklin ESA ESA dz8Gpwtjegqqpg: (The following items were deleted from the chart)10:15 03:16 Home Meds: Latuda 60 mg oral tab 1 tab Twice Daily; cm4 jl10:15 10:12 Home Meds: Zoloft 150MG Oral tab once daily; jl jl12:24 12:18 Subjective: The patients chief complaint is SI; depression. Pt kfpresents to the ED with police. Pt called police herself as she hadbeen experiencing SI. Pt states that she initially called reachout,and they encouraged her to go to talk to [facility] staff with theseconcerns. Pt states that she could not find staff, so she calledpolice instead. Upon arrival, pt voiced having SI with the plan todrown herself. Pt now denies any suicidal ideations. PT states thatshe felt that she was having SI because her brother was bullying herover the phone. Pt states that because of this, she now has domesticviolence consult arranged. She. kf12:26 12:24 Patient reports history of anxiety, Bipolar Disorder, kfDepression, kf Name Value Range Interpretation Code Description Data Stephanie rce(s) Supporting Document(s) ID Date Data Source [id number] 02/15/2021 09:17:00 PM EDT [facility] Name Value Range Interpretation Code Description Data Stephanie rce(s) Supporting Document(s) SALICYLATE < 1.7 mg/dL 0.0-20.0 [facility] ID Date Data Source [id number] 02/15/2021 09:17:00 PM EDT [facility] Name Value Range Interpretation Code Description Data Stephanie rce(s) Supporting Document(s) ETOH NONE DETECTED [facility] NONE DETECTED ID Date Data Source [id number] 02/15/2021 09:17:00 PM EDT [facility] [place] Name Value Range Interpretation Code Description Data Stephanie rce(s) Supporting Document(s) ACETAMINOPHEN < 2.0 ug/mL 0-30 [facility] Data Source [id number] 02/15/2021 09:17:00 PM [facility] Name Value Range Interpretation Code Description Data Stephanie rce(s) Supporting Document(s) GLU 91 mg/dL 70-110 [facility] Patients taking Sulfasalazine may have f alsely depressedGlucose levels. Patients taking Sulfapyridine may havefalsely elevated Glucose levels. Patients should be drawnfor Glucose before the initial administration of eitherdrug. BUN 17 mg/dL 7-23 [facility] CRE 0.697 mg/dL 0.500-1.300 [facility] GFR > 60 mL/min [facility] CHLORIDE 110 mmol/L 99-110 [facility] NA 144 mmol/L 136-147 [facility] POTASSIUM 4.2 mmol/L 3.5-5.1 [facility] TCO2 26 mmol/L 20-33 [facility] ANION GAP 12.2 10.0-20.0 [facility] CA 8.8 mg/dL 8.3-10.7 [facility] ALKALINE PHOS 124 U/L 45-117 [facility] TP 7.3 g/dL 6.0-7.8 [facility] ALB 3.8 g/dL 3.5-5.0 [facility] ESRD Dialysis patient Albumin reference range: 2.9-4.4 g/dL GL 3.5 g/dL 2.3-3.5 [facility] A/G 1.1 1.0-2.5 [facility] T. BILIRUBIN 0.3 mg/dL 0.1-1.1 [facility] [place] Total Bilirubin is n ot recommended forpatients undergoing treatment with eltrombopag (Promacta)due to the potential for falsely elevated results. ALTI 48 U/L 6-54 [facility] Patients taking Sulfasalazine and/or Sul fapyridine may havefalsely depressed ALT levels. Patients should be drawn forALT before the initial administration of either drug. AST 25 U/L 6-38 [facility] Patients taking Sulfasalazine and/or Sul fapyridine may havefalsely depressed AST levels. Patients should be drawn forAST before the initial administration of either drug. ID Date Data Source [id number] 02/15/2021 09:00:00 PM EDT [facility] Name Value Range Interpretation Code Description Data Stephanie rce(s) Supporting Document(s) WBC 11.28 x10E3/uL 4.0-10.5 [facility] RBC 4.17 x10E6/uL 4.20-5.40 [facility] Hemoglobin 12.4 g/dL 12.0-16.0 [facility] Hematocrit 37.9 % 37.0-47.0 [facility] MCV 90.9 fL 81.0-99.0 [facility] MCH 29.7 pg 27.0-31.0 [facility] MCHC 32.7 g/dL 32.7-35.6 [facility] RDW 12.4 % 11.5-14.0 [facility] Platelet count 258 x10E3/uL 150-450 [facility] ital MPV 9.8 fl 6.9-9.5 [facility] Neutrophils 56.1 % 34-64 [facility] Lymphocytes 33.3 % 25-45 [facility] Monocytes 8.0 % 1.7-10.6 [facility] Eosinophils 1.7 % 0.4-7.0 [facility] Basophils 0.5 % 0.1-2.0 [facility] Imm. Gran. 0.4 % 0.1-2.0 [facility] Abs. Neutro. 6.32 x10E3/uL 1.2-7.6 [facility] Abs. Lymph. 3.76 x10E3/uL 1.0-3.5 [facility] Abs. [place]. 0.90 x10E3/uL 0.1-1.0 [facility] Abs. Eosin. 0.19 x10E3/uL 0.1-0.7 [facility] Abs. Baso. 0.06 x10E3/uL 0.0-0.1 [facility] Abs. Imm. Gran. 0.05 x10E3/uL 0.0-0.1 [facility] spital ANRBC% 0 % 0 [facility] ID Date Data Source [id number] 02/15/2021 09:30:00 PM EDT [facility] Name Value Range Interpretation Code Description Data Stephanie rce(s) Supporting Document(s) PCP VISTA NEG NEGATIVE [facility] MINIMUM LEVEL OF DETECTION IS 25 ng/ml BENZODIAZEPINES NEG NEGATIVE [facility] al MINIMUM LEVEL OF DETECTION IS 200 ng/ml COCAINE VISTA NEG NEGATIVE [facility] MINIMUM LEVEL OF DETECTION IS 300 ng/ml AMPHETAMINES NEG NEGATIVE [facility] al MINIMUM LEVEL OF DETECTION IS 1000 ng/ml BARBITURATES NEG NEGATIVE [facility] CUTOFF CONCENTRATION IS 200 ng/ml CANNABINOIDS NEG NEGATIVE [facility] CUTOFF CONCENTRATION IS 50 ng/ml METHADONE VISTA [facility]G [facility]GAT[facility] MINIMUM LEVEL OF DETECTION IS 300 ng/ml OPIATE VISTA NEG NEGATIVE [facility] MINIMUM DETECTION LEVEL IS 300 ng/ml ID Date Data Source [id number] 02/15/2021 09:21:00 PM EDT [facility] [place] Name Value Range Interpretation Code Description Data Stephanie rce(s) Supporting Document(s) URINE COLOR Yellow [facility] UAPR Turbid [facility] UGLU Negative NEGATIVE [facility] URINE BILIRUBIN [facility] UKET Negative NEGATIVE [facility] USG 1.022 1.010-1.025 [facility] UBLO Negative NEGATIVE [facility] UpH 7.5 5.0-8.0 [facility] UPRO Negative Negative [facility] UUB 1.0 mg/dL 0.2-1.0 [facility] UNIT Negative Negative [facility] ULEU Trace Negative [facility] ID Date Data Source [id number] 02/15/2021 09:21:00 PM EDT [facility] [place] Name Value Range Interpretation Code Description Data Stephanie rce(s) Supporting Document(s) URINE RBC 0-2 RBCs/HPF NONE SEEN [facility] URINE WBC 3-5 WBCs/HPF NONE SEEN N [facility] URINE BACTERIA Few NONE [facility]EN [facility] URINE EPI. Few NONE SEEN [facility] URINE CRYSTAL MANY AMORPHOUS NONE SEEN N [facility] pital ID Date Data Source [id number] 02/16/2021 01:02:00 PM EDT [facility] Physician DocumentationClaxton-Naveen Hinkle edical CenterName: Yareli PatelvallAge: 20 yrsSex: FemaleDOB: 2000MRN: [id number] Date: 02/15/2021Time: 20:00Account#: [id number] MD:ED Physician Zhao Rajan Summary:02/16/21 12:01Discharge OrderedLocation: Home Self Care ws9Lepdqni: chronic og1Gcopuzps: are unchanged ch9Oajgezrjy: Stable ob3Xjcqeqssp- Major depressive disorder, recurrent, unspecified nx4Ibgnlfyl: rf2- With: Emergency Department- When: As needed- Reason: Staple/Suture removalFollowup: rf2- With: Private Physician- When: 2 - 3 days- Reason: Recheck today's complaints, Continuance of careDischarge Instructions:- Discharge Summary Sheet am11- DEPRESSION yk6Pvfof:- Medication Reconciliation rf2- Medication Reconciliation Form - 2nd Copy rf2HPI:02/721:27 This 20 yrs old White Female presents to ER via Police with aw6mwrjubelcd of Psych Problem.21:27 Patient brought in for mental health evaluation. Apparently the qn2prfegda made concerning commentary about suicidal ideation includingplan to drown herself in her bathtub. Patient initially in pleasantdisposition upon arrival, actually notes multiple members of staff byname. She becomes frustrated within 15 minutes of being here andbegins banging on the wall, will not answer many of my questionsdirectly, continually yelling at other members of staff to payattention to her. She denies any acute pain or trauma, deniesconstitutional sick symptoms. As I continue to asked more questions,she begins to ask members of staff if they can fight tonight. Again,she is initially in pleasant disposition and then becomes immediatelyupset if members of staff did not answer her right away, continuallysaying that she wants to fight everybody.Historical:- Allergies: Haldol; Risperdal;- Home Meds:1. propranolol 10 mg Oral tab 1 tab twice per day2. sertraline 150mg oral tab once daily3. topiramate 75mg oral tab once daily4. trazodone 50 mg Oral tab 1 tab prn insomnia5. prazosin 1 mg Oral cap nightly6. Latuda 60 mg oral tab 1 tab twice daily7. loratadine 10 mg oral TbDi once daily8. montelukast 10 mg oral tab 1 tab once daily9. pravastatin 20 mg oral tab 1 tab luzmgbg19. ibuprofen 400 mg Oral tab 1 tab prn for nolgrnayx05. lurasidone 80 mg oral tab 20:00- PMHx: ANXIETY; ADHD; BIPOLAR DISORDER; Depressive disorder; PsychHx; ptsd;- PSHx: None;- Immunization history: Flu vaccine is not up to date.- Social history: Smoking status: Patient uses tobacco products,current every day smoker. ETOH status Denies use of ETOH.- Advance Directives:: None.ROS:21:22 Constitutional: Negative for chills, fever. Eyes: Negative for hh8sahjxizrpja, vision loss. ENT: Negative for difficulty swallowing,difficulty handling secretions. Neck: Negative for stiffness, bonytenderness. Cardiovascular: Negative for chest pain, palpitations.Respiratory: Negative for cough, shortness of breath. Abdomen/GI:Negative for vomiting, diarrhea. Back: Negative for decreased rangeof motion, acute changes. MS/extremity: Negative for decreased rangeof motion, tenderness. Skin: Negative for hematoma, jaundice. Neuro:Negative for headache, loss of consciousness, seizure activity,syncope. Psych: Positive for anxiety, depression.Exam:21:23 Constitutional: The patient appears in no acute distress, alert, kd0tlmri, comfortable, non-diaphoretic, non-toxic, well developed,restless.21:23 Head/face: Exam is negative for contusion, deformity.21:23 Eyes: Exam is negative for hyphema, abnormalities of symmetry, size,shape and reaction of the pupils.21:23 ENT: Exam is negative for epistaxis, abnormal voice.21:23 Neck: Exam negative for meningismus, nuchal rigidity.21:23 Chest/axilla: Exam negative for crepitus, flail chest.21:23 Cardiovascular: Exam negative for JVD, tachycardia.21:23 Respiratory: Exam negative for respiratory distress, stridor,tachypnea.21:23 Abdomen/GI: Exam negative for distension, guarding.21:23 Back: Exam negative for CVA tenderness, vertebral tenderness.21:23 Musculoskeletal/extremity: Exam is negative for pelvic instability,perfusion abnormalities.21:23 Skin: Exam negative for cyanosis, pallor.21:23 Neuro: Exam negative for focal neuro deficits, confusion, dysarthria,weakness.21:23 Psych: Behavior/mood is anxious, aggressive, uncooperative, Affect isanimated, Oriented to person, place, Denies active suicidal orhomicidal ideation but does continually state that she is crazy andbecomes despondent and sad and yelling making threatening comments tostaff.Vital Signs:20:04 BP 126 / 84; Pulse 74; Resp 18; Temp 98.3; Pulse Ox 96 % on R/A; aa9Bdrlxw 104.33 kg (R); Height 5 ft. 6 in. (167.64 cm) (R); Pain 0/10;02/808:54 BP 119 / 82; Pulse 74; Resp 16; Temp 97.7(TE); Pulse Ox 97% ; pj13:00 BP 119 / 76; Pulse 90; Resp 18; Temp 98.8; Pulse Ox 96% on R/A; Pain blk0/10;02/720:04 Body Mass Index 37.12 (104.33 kg, 167.64 cm) dx2Xusoxnc Coma Score:02/721:23 Eye Response: spontaneous(4). Verbal Response: oriented(5). Motor eb4Ygpmxmtj: obeys commands(6). Total: 15.MDM:20:12 Patient medically screened. dk221:29 Data reviewed: nurses notes. ED course: Patient resented for bd5bylzcarcf evaluation with stated suicidal commentary, does not appearto need acute medical intervention but the patient soon upon arrivalis becoming impending threat to self or others with concerningcommentary and agitation episodes. Geodon was ordered and patienttook voluntarily as we are awaiting laboratory studies to becompleted and mental health evaluation.02/16 01:05 ED course: Patient was noted to make any concerning gesture, pulling dk2a sheet around her neck. Staff was able to enter the room immediatelyand no damage occurred but this clearly was concerning so the patientwas observed in a direct one-to-one fashion until medications allowthe patient to rest comfortably.07:12 Data reviewed: lab test result(s), CBC, drug level(s), acetaminophen, fg6cfioblh , salicylate, electrolytes, hepatic panel, urinalysis, urinedrug screen.07:13 Transition of care: Care assumed from Anoop Bowman MD. ED course: tb9Fzqximd signed out by Dr. Bowman. Briefly, she is a 20-year-old withPMH of bipolar disorder, ADHD, anxiety, and depression who presentedfor SI. Patient became agitated and had to be medically sedated withGeodon. Labs are unremarkable; patient is medically cleared at thistime and pending PSA evaluation.12:01 ED course: Patient being recommended for discharge home to [facility] per rf2DrRoge Canela with a diagnosis of depression.02/720:05 Order name: Acetaminophen Level; Complete Time: 21:30 cm408/0720:05 Order name: CBC with diff; Complete Time: 21:30 cm408/0720:05 Order name: CMP; Complete Time: 21:30 cm408/0720:05 Order name: ETOH; Complete Time: 21:30 cm408/0720:05 Order name: Glucose; Complete Time: 07:11 cm408/0807:11 Interpretation: Within normal limits. rf/20:05 Order name: Salicylate Level; Complete Time: 21:30 cm408/0720:05 Order name: Triage - Drug Screen; Complete Time: 21:30 cm408/0720:05 Order name: UA; Complete Time: 21:30 cm408/0720:05 Order name: Diet - Mental Health Tray (call dietary); Complete Time: cm412:210/0720:05 Order name: Belongings List; Complete Time: 12:21 cm408/0720:05 Order name: Document Weight and Height for BMI; Complete Time: 12:21 cm408/0720:05 Order name: Mental Health Evaluation; Complete Time: 12:21 cm40820:05 Order name: Mental Health Level 4; Complete Time: 12:20 cm20:05 Order name: VS q shift; Complete Time: 12:21 cm:31 Order name: Medically Cleared for Eval by-Psychosocial, Ios Architect Raisa); Complete Time: 11:17Dispensed Medications:02/721:38 Drug: Geodon 20 mg [ziprasidone 20 m g/mL (final concentration) my7okidfsmajngzj solution (1 mL)] Route: IM; Site: left deltoid;22:08 Follow up: Response: No adverse reaction; Anxiety decreased cm06:02 Drug: Acetaminophen 650 mg [acetaminophen 325 mg tablet (2 tabs)] tt5Jsjdi: PO;09:24 Not Given (Other Intervention Used): Nicotine 2 mg Buccal once jl09:34 Drug: Nicotine 1 patches [nicotine 21 mg/24 hr daily transdermal jlpatch (1 patches)] Route: Transdermal; Site: left upper arm;10:52 Not Given (Patient Refused): sertraline 150 mg PO once jl10:52 Not Given (Patient Refused): Topiramate 75 mg PO once jlSignatures:Dispatcher [employer] Bertha Huertas RN RN jlJudware, Peggy, RN Anoop Rodriguez MD MD wk8TnuvincebWendy Severino RN JOSE LUIS [id number] Barros RN JOSE LUIS to6TcvuzSantiago betts MD MD [id number]: (The following items were deleted from the chart)10:12 02/15 20:04 Home Meds: Inderal LA 10 mg Oral once daily; 4 :02/15 20:04 Home Meds: loratadine 10 mg oral tab 1 tab once daily; li6cp94:02/15 20:04 Home Meds: lurasidone 60 mg oral tab twice a day; 4 :02/15 20:04 Home Meds: sertraline 50 mg oral tab 1 tab once daily; fl6fa29/0810: 10:00 Allergies: Propranolol; jl jl10:18 10:16 Allergies: lurasidone; jl jl12:22 07:13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 she becameexplosive. At no point did she accept responsibility for her behavior and lorraine is the one that is in control of her behavior. Patient was then asked ifshe does this in an attempt to avoid meeting with a new intensive case managerin which she does not now and when asked this to look at the floor it began togiggle. Was explained to Umm that it has been noted by the treatment teamthat when she feels uncomfortable talking about something or seems to not feelthat she is in control she attempts to derail the conversation and startsgiggling or trying to avoid the topic. After talking about this she did agreethat this is what she does and that she is nervous about meeting somebody newand it was explained to her that this is a normal feeling and that staff arewilling to sit with her to give her a sense of security when meeting thisperson. After explaining this to her she seemed more at ease and was morereceptive to what was being said in the meeting. She did ask about her lifeskills and if she was able to do them due to yesterday and it was explained toher that due to being able to bring herself under control and utilize hercoping skills that engaging in life skills today would be an option. She wasprovided with 2 options and she was excited that cooking was one of them whichshe chose. Patient denies having any current suicidal/homicidal ideations.Patient denies having any medical/physical complaints at this time.Mental status exam: Patient is alert and oriented to person, place, time.Patient is easily distracted when engaging in a topic of conversation that shefeels uncomfortable with. Patient's concentration varies depending on topicand environment. Patient speech is pressured and loud at times. Patient'smood and affect are labile, thought process is circumstantial and superficiallyorganized with some illogic thinking. Patient's thought content is free ofhomicidal and suicidal ideations. Patient does not appear to be experiencingany internal stimulation, does not appear to be experiencing any type ofhallucinations, does not project any paranoia or delusions. Patient denieshearing any voices or seeing things others do not. Patient's insight andjudgment are poor and decision-making capacity is questionable.Plan: Continue with current treatment plan and medication regimen. Continue towork with staff and Yareli on behavior plan and make adjustments asindicated. Nursing and staff will continue to provide a safe environment andmonitor for unsafe behaviors. Continue to monitor for side effects frommedication use. Continue to encourage patient to use coping skills and toreach out to staff when having difficulty. Continue to await bed availabilityat [facility].ObjectiveVital SignsVital Signs-LastResult Date TimeB/P 118/74 02/07 0818Pulse Ox 98 02/06 1154Temp 97.0 02/06 1154Pulse 81 02/06 1154Resp 15 02/06 1154Current MedicationsTopiramate (Topamax) 75 MG DAILY PONicotine (Nicorette) 2 MG Q2HPRN PRN POLoratadine (Claritin) 10 MG DAILY POAl Hydrox/Mg Hydrox/Simethicone (Maalox) 15 ML QIDPRN PRN POPropranolol HCl (Inderal) 10 MG BID POAcetaminophen (Tylenol) 650 MG Q4HPRN PRN POAcetaminophen (Tylenol) 650 MG Q4HPRN PRN POHydroxyzine (Atarax, Vistaril) 25 MG Q4HPRN PRN POMagnesium Hydroxide (Mom) 10 ML QHSPRN PRN POTrazodone HCl (Desyrel) 50 MG QHSPRN PRN POMontelukast Sodium (Singulair) 10 MG DAILY POSertraline HCl (Zoloft) 150 MG DAILY POIbuprofen (Motrin) 600 MG TIDPRN PRN POLurasidone HCl (Latuda) 80 MG 2000 POLurasidone HCl (Latuda) 80 MG DAILY POExaminationMusculoskeletalMuscle Strength & Tone normalGait normalStation normalAssessment/PlanDiagnosis1. Suicide attemptStatus Acute2. Major depressive disorderStatus Chronic3. Bipolar affective disorderStatus Chronic4. Borderline personality disorderStatus Chronic5. Obesity, morbidStatus Chronic6. Suicidal ideationCoordination of care provided with nursing staff, treatment teamRisk/benefits discussed expected therapeutic effe, side effectsJustification for continued stay danger to self/others, behavior intolerableAdditional NotesPatient continues to be impulsive and act unpredictable which can place herselfand others in danger.DATE SIGNED: 02/07/21 Electronically SignedTIME SIGNED: 1254 DYLAN CABRERA Name Value Range Interpretation Code Description Data Stephanie rce(s) Supporting Document(s) ID Date Data Source [id number] 02/06/2021 01:15:00 PM EDT [facility] HEALTH PROGRESS NOTEPATIENT NAME: YARELI HATCH CATSALVADOR PHYSICIAN: BROOKLYN ONEILL MDAUTHOR: Lana Aquino. DATE: 01/03/21 MR#: [id number] NOTE DATE: 02/06/21 RM#: [id number] TIME: 1323 is a 20-year-old white female.CC/Hx Present Illness"I overdosed"Events Since Last EntryPatient presented to teaming this a.m. as bright and cheerful. Present for themeeting was this insurance writer, the charge nurse, and her treatment coordinatorAlicia. Patient was very talkative today and in and up be mood. Conversationtoday focused on her life skills and as the conversation moved forward sheinquired as to what life skills truly were; this was explained to her but whiledoing so she appeared to be very intimidated. She was provided with 2 lifeskills to choose from today and she chose to focus on her hygiene. Patient didstates she has been taking her medications and that the increase in Topamax hasnot caused any ill side effect that she can tell. Patient states that shecontinues to toss and turn during the night and it was mentioned to her thatthis is not usually been brought up by staff but that she has been documentedto be sleeping well throughout the night. Patient's appetite remains good.When asked if she was having any thoughts of suicide today she stated "not yet" and that she was not currently thinking of harming others. Patient deniesexperiencing any physical/medical problems at this time. Patient states she isattending activities, has been on the phone several times in the last 24 hourswhich has not caused any appropriate behaviors, and that she is engaging withher peers with no conflicts. When topics of uncomfortable nature were broughtup such as her hygiene or womanhood needs she began to giggle inappropriatelyand stated that this topic makes her feel uncomfortable because she does notknow much about it. It was explained to her that this is generally taughtwhile children are adolescents and that she did not have a normal upbringingdue to being in and out of psychiatric hospitals throughout her childhood. Heaccepted this explanation and did appear to be engaged when talking with her ontopics that she says made her feel uncomfortable.Mental status exam: Patient is alert and oriented to person, place, time.Patient was easily distracted today when a change of topics came about and herability to concentrate fluctuated throughout the meeting. Patient's mood wasokay and affect was overly bright. Patient's thoughts were superficiallyorganized and circumstantial. Patient does not appear to be responding tointernal stimuli, does not appear to be experiencing any types ofhallucinations, does not express any paranoia or delusions. Patient's insight,judgment, and decision-making capacity remain impaired.Plan: Continue with current medication regimen and treatment plan. Continue tomake alterations to behavior plan as indicated. Continue to follow behaviorplanned that is outlined for her. Continue to monitor for side effects ofmedications. Continue to provide a safe environment and monitor for unsafebehaviors in conjunction with nursing staff. Continue to [facility] at [facility].ObjectiveVital SignsVital Signs-LastResult Date TimePulse Ox 98 02/06 1154B/P 119/78 02/06 1154Temp 97.0 02/06 1154Pulse 81 02/06 1154Resp 15 02/06 1154ExaminationMusculoskeletalMuscle Strength & Tone normalGait normalStation normalAssessment/PlanDiagnosis1. Suicide attemptStatus Acute2. Major depressive disorderStatus Chronic3. Bipolar affective disorderStatus Chronic4. Borderline personality disorderStatus Chronic5. Obesity, morbidStatus Chronic6. Suicidal ideationCoordination of care provided with nursing staff, treatment teamRisk/benefits discussed expected therapeutic effe, side effectsJustification for continued stay danger to self/others, unpredictable &impulsivity in regards to her behaviorDATE SIGNED: 02/06/21 Electronically SignedTIME SIGNED: 1323 DYLAN CABRERA Name Value Range Interpretation Code Description Data Stephanie rce(s) Supporting Document(s) ID Date Data Source [id number] 02/05/2021 01:16:00 PM EDT [place] [id number] HEALTH PROGRESS NOTEPATIENT NAME: YARELI HATCH PHYSICIAN: BROOKLYN ONEILL MDAUTHOR: Gema WHITE,DylanADM. DATE: 01/03/21 MR#: [id number] NOTE DATE: 02/05/21 RM#: 308EVALUATION TIME: 1325 is a 20-year-old white female.CC/Hx Present Illness"I overdosed"Events Since Last EntryMickayla presented today as unkempt and somewhat disheveled. Patient enteredas irritable and angry. Present for the meeting was this insurance writer, Madelin hertreatment coordinator, and the charge nurse. Patient stated she did not wishto talk to us as to why. Patient was given her behavior plan and asked to readaloud which she did. When asked if she had a full understanding of it deedee stated "I don't care". After review of the behavior plan with herand explanation to areas of question by her she signed the behavior plan. Mary voiced complaints that people focus especially staff on her negativebehavior and not her positive and when we apologized for this behavior sheappeared confused but accepted the apology. Continue to attempt to instigatean argument between the treatment team and herself however she was unsuccessfulin doing so but she was able to remain calm and not act out. Patient did stateone point that she was becoming frustrated and wanted to stand up and slammedthe door but knew if she did she would not be able to have her one-on-one timewith her practice coordinator today and that she would lose all herprivileges. The treatment team did agree with her statement and said that mandie was in control of her behaviors and that if she wished to stand up andslammed the door that she was in control and she was in charge. Patientultimately turned the meeting around and was brighter and more engageable atthe end of the meeting. Patient did bring up the topic of her medication andstated she would like to see her Topamax increased. Patient deniesexperiencing any ill side effects from her other medications. Patient statesthat she is sleeping okay and that her appetite has been good. Patient denieshaving any thoughts of suicide currently and also denies having any thoughts/urges to harm others. Does also deny experiencing any physical/medicalproblems/complaints at this time.Mental status exam: She was alert and oriented to person, place, time. Patientwas engageable but was easily distracted at times. Patient speech was loud andpressured at times. Patient's mood was labile as was her affect. Patient'sthought process was superficially organized and loose. Patient does not appearto be responding to internal stimuli, does not appear to be experiencing anyform of hallucinations, does not express any paranoia or delusions. Patient'sinsight/judgment remain impaired and decision-making capacity is also impaired.Plan: Continue with current treatment regimen. Increase Topamax to 75 mgdaily. Continue to monitor for any ill side effects from medication use.Continue to provide a safe environment and monitor for unsafe behaviors inconjunction with nursing staff. Continue to work with her on her behavior planand make durations as indicated. Continue to await bed availability at [facility].ObjectiveVital SignsVital Signs-LastResult Date TimePulse Ox 98 02/05 1046B/P 127/79 02/05 1046Temp 97.3 02/05 1046Pulse 75 02/05 1046Resp 16 02/05 1046Current MedicationsTopiramate (Topamax) 75 MG DAILY PONicotine (Nicorette) 2 MG Q2HPRN PRN POLoratadine (Claritin) 10 MG DAILY POAl Hydrox/Mg Hydrox/Simethicone (Maalox) 15 ML QIDPRN PRN POPropranolol HCl (Inderal) 10 MG BID POAcetaminophen (Tylenol) 650 MG Q4HPRN PRN POAcetaminophen (Tylenol) 650 MG Q4HPRN PRN POHydroxyzine (Atarax, Vistaril) 25 MG Q4HPRN PRN POMagnesium Hydroxide (Mom) 10 ML QHSPRN PRN POTrazodone HCl (Desyrel) 50 MG QHSPRN PRN POMontelukast Sodium (Singulair) 10 MG DAILY POSertraline HCl (Zoloft) 150 MG DAILY POIbuprofen (Motrin) 600 MG TIDPRN PRN POLurasidone HCl (Latuda) 80 MG 2000 POLurasidone HCl (Latuda) 80 MG DAILY POExaminationMusculoskeletalMuscle Strength & Tone normalGait normalStation normalAssessment/PlanDiagnosis1. Suicide attemptStatus Acute2. Major depressive disorderStatus Chronic3. Bipolar affective disorderStatus Chronic4. Borderline personality disorderStatus Chronic5. Obesity, morbidStatus Chronic6. Suicidal ideationCoordination of care provided w radha nursing staff, treatment teamRisk/benefits discussed expected therapeutic effe, side effectsJustification for continued stay danger to self/others, behavior intolerableDATE SIGNED: 02/05/21 Electronically SignedTIME SIGNED: 1325 DYLAN CABRERA Name Value Range Interpretation Code Description Data Stephanie rce(s) Supporting Document(s) ID Date Data Source [id number] 02/04/2021 10:40:00 AM EDT [address] HEALTH PROGRESS NOTEPATIENT NAME: YARELI HATCH PHYSICIAN: BROOKLYN ONEILL MDAUTHOR: Gema WHITE,Lana. DATE: 01/03/21 MR#: [id number] NOTE DATE: 02/04/21 RM#: [id number] TIME: 1058 is a 20-year-old white female.CC/Hx Present Illness"I overdosed"Events Since Last EntryPatient met with her treatment team today, present for the meeting was myself,the charge nurse, and her practice coordinator Madelin. Patient presented verybright and cheerful. Patient was asked what she would like to do today.Patient stated she would like to come off a one-to-one observation and was ableto list the reasons why such as no longer being suicidal and no longer wantingto harm herself. As per her treatment plan and behavior plan it was explainedto her that after coming off the one-to-one observation on day 1 she was ableto attend activities and groups, day 2 she would gain her phone privileges back, and on the third day as long as all behaviors have been appropriate and freeof self-harm or aggressive behavior she would be able to obtain all herprivileges back such as her life skills training. Patient verbalizes completeunderstanding and agreed to these terms. Throughout the meeting patient wasvery cooperative and polite. Patient yesterday did ask for an increase in herLatuda, this was looked into and currently she is receiving the maximum dailydose of 160 milligrams daily. She then inquired if her Topamax was able to beincreased as this seems to have been improving her headaches which she stillcontinues to get once in a while and also she believes it has been helping withher reduced diet and calorie intake as well since her weight has remainedrelatively unchanged since beginning the medication. He was informed thiscould be possible but then she stated she wants to think about it and she wasgiven this opportunity to do so as well. Patient states she is notexperiencing any ill side effects at this time from her medications. Patientdenies having any suicidal ideations, urges to harm herself, or plan to hurtherself. Patient also denies having any urges to harm others. She was notedto be more agreeable and cooperative throughout the meeting.Mental status exam: Patient was alert and oriented to person, place, time.Patient was fully engaged and better able to concentrate today. Patient's moodappeared to be somewhat euphoric and affect was bright. Eye contact was fa ir.Patient's thoughts were superficially organized and circumstantial at times.Patient does not appear to be responding to internal stimuli, does not appearto be experiencing any form of hallucinations, does not express any paranoia ordelusions. Patient's insight and judgment are fair and decision- makingcapacity is intact.Plan: Continue with current treatment plan, behavioral plan, and medicationregimen. Continue to monitor for any ill side effects from medication use.Continue to provide a safe environment monitoring of unsafe behaviors bystaffing. Continue to work closely with the charge nurse to provide continuityof care with the patient. Continue to await bed availability at [facility]. Possiblyincrease her Topamax to 75 mg daily but this will be decided tomorrow. Patientcurrently denies any physical/medical problems/complaints at this time.ObjectiveExaminationMusculoskeletalMuscle Strength & Tone normalGait normalStation normalResultsResults Ordered/ReviewedLab Tests reviewedAssessment/PlanDiagnosis1. Suicide attemptStatus Acute2. Major depressive disorderStatus Chronic3. Bipolar affective disorderStatus Chronic4. Borderline personality disorderStatus Chronic5. Obesity, morbidStatus Chronic6. Suicidal ideationCoordination of care provided with nursing staff, treatment teamRisk/benefits discussed expected therapeutic effe, side effectsDATE SIGNED: 02/04/21 Electronically SignedTIME SIGNED: 1058 DYLAN CABRERA Name Value Range Interpretation Code Description Data Stephanie rce(s) Supporting Document(s) ID Date Data Source [id number] 02/03/2021 10:04:00 AM EDT [place] [id number] HEALTH PROGRESS NOTEPATIENT NAME: DAMARIS,YARELI YA PHYSICIAN: BROOKLYN ONEILL MDAUTHOR: Lana Aquino. DATE: 01/03/21 MR#: [id number] NOTE DATE: 02/03/21 RM#: [id number] TIME: 1013 is a 20-year-old white female.CC/Hx Present Illness"I overdosed"Events Since Last EntryPatient presented this a.m. for teaming as angry, irritable and slumped in achair with her head arms crossed across her chest while looking at the floorwith this insurance writer, her practice coordinator, and the charge nurse present. Itwas asked what she would like to talk about and she stated "nobody listens tome anyways". The patient was given a moment to begin the conversation howevershe sat there slumped over in her chair with her arms crossed looking at thefloor therefore she was asked about this weekend and she became upset andargumentative stating "why do you always bring up the bad stuff". Patientbegan to raise her voice and become extremely argumentative and when she wasredirected stating that this was not going to be accepted she then was able tocalm herself and began talking in an appropriate voice and was more engageable.Patient stated she apologizes for her outburst as she has not slept well overthe course of the past few nights dating that each time she turned she wakesup. Patient also in quired about having her Latuda increased in dosage.Patient states her Topamax appears to be working as she has not had anyheadaches the last few days. As the meeting went on she became moreargumentative again and stated that again nobody listens to her. When askedabout what she means by that she stated "I am suicidal and you are doingnothing about it". She was asked what she would like to do and she sat quietfor several minutes and she was pressed again for an answer and she said "Iwant to be on a one-to-one". It was explained to the patient as what was goingto happen while she was on a one-to-one such as sitting in the dining areawhere she can be visually monitored by staff and her one-to-one at all timesduring the day. She would not be able to participate in activities, she wouldnot be able to use the telephone, she would lose all of her privileges such asmeeting with her practice coordinator for one-on-one activity in the afternoonand she verbalized an understanding to this. It was also explained to her thatat no point can she come back on the treatment team stating that we are doingthis as a punishment and again she verbalized an understanding of this. Inteaming it was noted the patient's hygiene was poor, she was disheveled, andunkempt. She was extremely labile and disorganized.Mental status exam: Patient was alert and oriented to person, place, time.Patient was easily distracted and not fully engaged. Patient speech waspressured and rapid at times. Patient's mood was labile and affect wasblunted. Patient's thought process was superficially organized andcircumstantial. Patient does not appear to be responding to internal stimuli,patient does not appear to be experiencing any type of hallucination, patientdoes not exhibit any paranoia and the patient does not stress any delusions.Patient's insight is poor, judgment is impaired, and decision-making capacityis not intact.Plan: Patient's medications are going to be reviewed and if possible revisionsare going to be made with patient's approval. Is now currently on a level forobservation due to suicidal ideations and patient's inability to contract forsafety and verbalizing intent to harm self. Continue with current behaviorplan and implementation of any revisions to improve continuity of care.Continue to await bed availability at [facility] for appropriate housing.ObjectiveVital SignsVital Signs-LastResult Date TimeB/P 115/60 02/03 0908Temp 96.0 02/03 0631Pulse Ox 98 02/02 1109Pulse 94 02/02 1109Resp 16 02/02 1109ExaminationMusculoskeletalMuscle Strength & Tone normalGait normalStation normalResultsResults Ordered/ReviewedLab Tests orderedAssessment/PlanDiagnosis1. Suicide attemptStatus Acute2. Major depressive disorderStatus Chronic3. Bipolar affective disorderStatus Chronic4. Borderline personality disorderStatus Chronic5. Obesity, morbidStatus Chronic6. Suicidal ideationCoordination of care provided with nursing staff, treatment teamRisk/benefits discussed expected therapeutic effe, side effectsJustification for continued stay danger to self/others, behavior intolerableDATE SIGNED: 02/03/21 Electronically SignedTIME SIGNED: 1013 DYLAN CABRERA Name Value Range Interpretation Code Description Data Stephanie rce(s) Supporting Document(s) ID Date Data Source [id number] 01/31/2021 10:20:00 AM EDT [address] HEALTH PROGRESS NOTEPATIENT NAME: YARELI HATCH PHYSICIAN: BROOKLYN ONEILL MDAUTHOR: Lana Aquino. DATE: 01/03/21 MR#: [id number] NOTE DATE: 01/31/21 RM#: [id number] TIME: 1033 is a 20-year-old white female.CC/Hx Present Illness"I overdosed"Events Since Last EntryEntered the room for treatment team this a.m. angry and irritable stating "I donot want to fing see you (referring to this insurance writer) or anyone for thatmatter. I do not want to talk about what happened yesterday, you put me in magdalena mood yesterday, and you are the reason why I went into restraints".Patient then stated she will give the team 5 minutes to discuss what they wantbut that she does not wish to listen nor will she be cooperative. The momentthe team attempted to debrief from yest erday's events the patient stood upstormed towards the door and then very quietly shut the door. A few momentslater patient knocked on the door and opened and asked if she could come in andtalk. She came in and apologized for her actions. Stating that she is just kaley bad mood and that she was sorry for her words and actions. Patient did admitto having a bad phone call last evening, the charge nurse who was present didstate that she was able to approach staff and appropriately ask for as neededand use her coping skills to calm herself with no further episodes. Patientstates that she called the police on her brother last evening reporting that heis harassing her and she states she no longer will be calling or talking tomnm.Patient was seen yesterday by Renan Spangler the [facility] for complaints of a sorethroat and other related symptoms. Patient did have a culture done to test forstrep throat which was negative. Renan Spangler believes her symptoms are relatedto allergies and recommended montelukast to her medication regimen. Todaypatient denies having any symptoms that she was experiencing in previous days.Patient denies experiencing any ill side effects from her current medicationregimen and denies any other physical/medical complaints at this time.Patient states she slept fine last evening and that her appetite has been good.Patient stated she does have thoughts of suicide and if given the opportunityshe would engage in self-harm. The treatment team and charge nurse providedher with support and alternatives that she could implement when feeling theurge to self-harm. Patient did state that she was able to come to staff if shefelt the urge to engage and self harming behaviors. She currently states thatshe does not have the urge to self- harm or any intentions on doing so. Patientdenies any suicidal ideations.During the meeting patient did present as disheveled, unkempt and verymalodorous. Personal hygiene was discussed and she would like this to be ascale that she learns so she can better care for her hygiene. Her behaviorplan was also discussed with her and she was very quiet and nonreactive duringthis discussion.Mental status exam: Patient was alert and oriented to person, place, time.Patient was disengaged at the start of the meeting but at the end of themeeting was more engaged and amendable to her treatment plan and behavior plan.Patient's thoughts were superficially organized, coherent, but random attimes. Patient's thought content is logical, positive for fleeting thoughts ofsuicide and free of homicidal ideation. Patient does not appear to beexperiencing any internal stimulation, does not appear to be experiencing anytype of hallucination, does not appear to be paranoid and does not demonstrateany delusions. Patient's mood and affect are labile and eye contact isintermittent. Patient's ability to concentrate is impaired, her insight andjudgment are also impaired, and decision-making capacity is impaired.Plan: Continue with current medication regimen and recommendation from Krys. Continue with current treatment plan and behavior plan. Continue towork with nursing staff to provide a safe environment and monitoring of unsafebehaviors. Continue to work on life skills, encouragement of appropriatebehaviors, and consistency of behavior plan. Continue to await bedavailability at [facility].ObjectiveExaminationMusculoskeletalMuscle Strength & Tone normalGait norm alStation normalResultsResults Ordered/ReviewedLab Tests orderedAssessment/PlanDiagnosis1. Suicide attemptStatus Acute2. Major depressive disorderStatus Chronic3. Bipolar affective disorderStatus Chronic4. Borderline personality disorderStatus Chronic5. Obesity, morbidStatus ChronicCoordination of care provided with nursing staff, treatment teamRisk/benefits discussed contraindictions, expected therapeutic effe, sideeffects, weight gain/lossDATE SIGNED: 01/31/21 Electronically SignedTIME SIGNED: 1033 DYLAN CABRERA Name Value Range Interpretation Code Description Data Stephanie rce(s) Supporting Document(s) ID Date Data Source [id number] 01/30/2021 04:15:00 PM EDT [facility] [address] [id number] NOTE FOLLOW UPPATIENT NAME: YARELI HATCH PHYSICIAN: BROOKLYN ONEILL MDAUTHOR: Jacque Chowdhury. DATE: 01/03/21 MR#: [id number] NOTE DATE: 01/30/21 RM#: [id number] TIME: 1620 : 00Progress Note Follow UpSummaryPatient had complaints of some congestion, sore throat, FRITZ. This going on forfour days. Strep test pending.PEA+Ox3, cooperativeENT: Ear, small cerumen, TM pearly B/LNose pink muc ous membranes, no discharge.pharynx, pink, no exudates, no erythemaLCTA B/LRRR? allergic Rhinitis?Add montelukast. Monitor.Any questions or concerns please contact our service.Total time spent 10mDATE SIGNED: 01/30/21 Electronically SignedTIME SIGNED: 1620 THERESA PARSAD SPANGLER Name Value Range Interpretation Code Description Data Stephanie rce(s) Supporting Document(s) ID Date Data Source [id number] 01/30/2021 10:42:00 AM EDT [address] HEALTH PROGRESS NOTEPATIENT NAME: YARELI HATCH PHYSICIAN: BROOKLYN ONEILL MDAUTHOR: Lana Aquino. DATE: 01/03/21 MR#: [id number] NOTE DATE: 01/30/21 RM#: [id number] TIME: 1121 is a 20-year-old white female.CC/Hx Present Illness"I overdosed"Events Since Last EntryPatient presented today to teaming as irritable and angry. Present for teamingtoday was the charge nurse, myself, and the practice coordinator. Patientstated she was not feeling well and that staff were not doing anything about itand then in the next sentence stated that the hospitalist was taking his "sweettime "to come and see me even though I am sick. Patient was informed that sheneeded to respect others personal space. Patient was informed that she needsto maintain a distance of 6 feet from others due to policy and regulations.After this was informed to her she said "go on" while moving her hands forwardand rolling her eyes. Patient was also asked why she engaged in asked thattrigger her behaviors, such as calling her father last night. Patient becameargumentative and stated "oh great now uretic my phone privileges away", shewas informed this was not what was going to be said and that she needs to stopinterrupting before others can complete what they are saying. Patient thenrolled her eyes and said "go on". As the meeting continued patient became moreand more argumentative and defensive. Patient was informed if she continued toescalate that she would be asked to leave. She was able to collect herself andwhen her behavior plans were discussed with her she began rolling her eyes,saying "what ever ", and then continue to interrupt. The meeting was goingnowhere quickly and her level of agitation and aggression were beginning toescalate, so she was asked to leave the room but that if she had any furtherquestions or concerns that she could bring them to the attention of the chargenurse as that is her salesperson toy trains and accessories as outlined by her behavior plan. Patientstated "then I guess I will just build everything up inside and just explode".At that point she stood from her chair aggressively walked towards the door andstated "I guess I will flip out" and slammed the door very hard. Patient wasthen approached by staff and she continued to be aggressive and assaultive inher posturing and words. As we have discussed before with her she knows thatif she is to engage in aggressive acts that she will be placed in four-pointrestraints until she is able to maintain control. Patient at that point wasthen placed into four-point restraints, a vanesa ramos was called, and patientafter placement into four-point restraints and at this current time is yelling,screaming obscene comments to staff, and attempting to bite the r estraints off.She is currently being monitored as per policy by staff and her safety isbeing maintained.Mental status exam: Patient is alert and oriented to person, place, time.Patient is easily distracted, unable to focus and concentrate, and isdeflecting her behavior. His thoughts are illogical, disorganized, and loose.Content is free of suicidal/homicidal ideations. Patient does not appear to beresponding to internal stimuli, does not appear to be experiencing any type ofhallucination, does not project any paranoia and does not express anydelusions. Patient's insight and judgment are lacking. Decision-makingcapacity is impaired.Plan: Continue with current treatment plan and medication regimen. Monitorvital signs and for any ill side effects from medications. Continue to workwith behavior plan and implementation. Continue with life skills training.Continue to provide a safe environment, monitor for safety, and await bedavailability at [facility] as per her AOT.ObjectiveExaminationMusculoskeletalMuscle Strength & Tone normalGait normalStation normalResultsLaboratory DataRecent Labs-72 hours01/2009342684BjfglccuxCvovcu (136 - 147 mmol/L) 141Potassium (3.5 - 5.1 mmol/L) 3.9Chloride (99 - 110 mmol/L) 109Serum Bicarbonate (20 - 33 mmol/L) 24Anion Gap (10.0 - 20.0) 11.9BUN (7 - 23 mg/dL) 22Creatinine (0.500 - 1.300 mg/dL) 0.589Estimated GFR/1.73 m2 (mL/min) > 60Glucose (70 - 110 mg/dL) 103Calcium (8.3 - 10.7 mg/dL) 8.9Total Bilirubin (0.1 - 1.1 mg/dL) 0.6AST (6 - 38 U/L) 22ALT (6 - 54 U/L) 43Alkaline Phosphatase (45 - 117 U/L) 113Creatine Kinase (17 - 150 U/L) 139Total Protein (6.0 - 7.8 g/dL) 7.6Albumin (3.5 - 5.0 g/dL) 3.8Globulin (2.3 - 3.5 g/dL) 3.8 HAlbumin/Globulin Ratio (1.0 - 2.5) 1.0HematologyWBC (4.0 - 10.5 x10E3/uL) 5.96RBC (4.20 - 5.40 x10E6/uL) 4.47Hgb (12.0 - 16.0 g/dL) 13.4Hct (37.0 - 47.0 %) 39.5MCV (81.0 - 99.0 fL) 88.4MCH (27.0 - 31.0 pg) 30.0MCHC (32.7 - 35.6 g/dL) 33.9RDW (11.5 - 14.0 %) 12.0Plt Count (150 - 450 x10E3/uL) 256MPV (6.9 - 9.5 fl) 9.5Immature Gran % (Auto) (0.1 - 2.0 %) 0.5Neut % (Auto) (34 - 64 %) 55.0Lymph % (Auto) (25 - 45 %) 35.9Mono % (Auto) (1.7 - 10.6 %) 6.5Eos % (Auto) (0.4 - 7.0 %) 1.8Baso % (Auto) (0.1 - 2.0 %) 0.3Abs Immat Gran (auto) (0.0 - 0.1 x10E3/uL) 0.03Absolute Neuts (auto) (1.2 - 7.6 x10E3/uL) 3.27Absolute Lymphs (auto ) (1.0 - 3.5 x10E3/uL) 2.14Absolute Monos (auto) (0.1 - 1.0 x10E3/uL) 0.39Absolute Eos (auto) (0.1 - 0.7 x10E3/uL) 0.11Absolute Basos (auto) (0.0 - 0.1 x10E3/uL) 0.02Nucleated RBC % (auto) (0 %) 0Results Ordered/ReviewedLab Tests orderedAssessment/PlanDiagnosis1. Suicide attemptStatus Acute2. Major depressive disorderStatus Chronic3. Bipolar affective disorderStatus Chronic4. Borderline personality disorderStatus Chronic5. Obesity, morbidStatus ChronicCoordination of care provided with nursing staff, treatment teamRisk/benefits discussed contraindictions, expected therapeutic effe, sideeffects, weight gain/lossJustification for continued stay danger to self/others, behavior intolerableDATE SIGNED: 01/30/21 Electronically SignedTIME SIGNED: 1121 DYLAN CABRERA Name Value Range Interpretation Code Description Data Stephanie rce(s) Supporting Document(s) ID Date Data Source [id number] 01/30/2021 10:48:00 PM EDT [facility] [address] [id number] NAME: YARELI HATCH.#: [id number] PHYSICIAN: BROOKLYN ONEILL MD ADM. DATE: 01/03/21PROGRESS NOTE DATE: 01/30/21 .#: 308ACCOUNT #: [id number] NOTEIDENTIFICATION: A 20-year-old female with borderline personality disorder.VITAL SIGNS: Temperature of 96.9, pulse of 58, respirations 16, bloodpressure 122/77.SUBJECTIVE: This is a note for a 4-point restraint. The patient was in ameeting and started yelling and screaming and slammed the door, threateningthe staff. She was not able to be redirected. The patient became moreaggressive to the staff and required 4-point restraint.At the time of this dictation, she is in 4-point restraint. She is stable butstill yelling and screaming. She did not require medication at this point.MENTAL STATUS EXAMINATION: The patient was aggressive, violent, did notanswer any of my questions. She yelled at me. Judgment and insight arequestionable at this point.DIAGNOSIS: Borderline personality disorder.PLAN: She will be in 4 points for an hour.Date Dictated: 01/30/2021 10:21:59Date Transcribed: 01/30/2021 21:48:49JJose/Arti #: [id number]: 01/30/21 1021 Electronically SignedTRANS:01/30/21 2248 FILI CANELA MDTRANS BY:IATDATE SIGNED:01/31/21REPORT COPY TO: Name Value Range Interpretation Code Description Data Stephanie rce(s) Supporting Document(s) ID Date Data Source [id number] 01/31/2021 12:29:00 PM EDT [facility] Does the pt. have a limb restriction? NR estricted limb verified YNO BETA HEMOLYTIC STREPTOCOCCUS ISOLATEDNO PATHOGENS ISOLATED Name Value Range Interpretation Code Description Data Stephanie rce(s) Supporting Document(s) ID Date Data Source [id number] 01/29/2021 10:54:00 AM EDT [facility] [address] HEALTH PROGRESS NOTEPATIENT NAME: YARELI HATCH PHYSICIAN: BROOKLYN ONEILL MDAUTHOR: Colleen SMITH,DhruvADM. DATE: 01/03/21 MR#: [id number] NOTE DATE: 01/29/21 RM#: 308EVALUATION TIME: 1058 is a 20-year-old white female.CC/Hx Present Illness"I overdosed"Events Since Last EntryPatient reported feeling somewhat upset and stating that people outside such jenn family were not treating well and this time when she goes outside she wouldnot talk to them. She was also focused on DSS however when we discussed withher about her coping skill and concern about previous recurrent hospitalizationpatient was upset and focused on her providers as well. Patient was updatedabout t AOT treatment plan with possible opening in [facility] for safedischarge plan. Patient also shows poor impulsivity and for that we considerto further increase Zoloft medication. Earlier patient was seen somewhatpleasant in activities room.Mental status examination: Patient was alert, oriented with a place, person,appeared distracted, still remain anxious, poor impulsivity, attentionconcentration limited, affect was somewhat elevated, mood was upset, thoughtprocess was circumstantial, thought content denied having any suicidal,homicidal ideations, denied having any auditory visual hallucinations,attention concentration limited, insight and judgment appear limitedPlan: Consider to continue current treatment plan with monitoring for patientsafety and we will further increase Zoloft medication 150 mg for underlyingimpulsivity and mood symptoms as well. However patient was discharged numerousoccasion and needing further stabilization through AOT treatment at this pointand we are waiting for [facility] opening outside as well. Patient has poor oral lackof family support outside.ObjectiveVital SignsVital Signs-LastResult Date TimeB/P 136/77 01/29 0909Temp 98.1 01/29 0702Pulse Ox 99 01/28 1140Pulse 71 01/28 1140Resp 16 01/28 1140Current MedicationsSertraline HCl (Zoloft) 150 MG DAILY POTopiramate (Topamax) 50 MG DAILY POIbuprofen (Motrin) 600 MG TIDPRN PRN POLurasidone HCl (Latuda) 80 MG 2000 POLurasidone HCl (Latuda) 80 MG DAILY PONicotine (Nicorette) 2 MG Q2HPRN PRN POPropranolol HCl (Inderal) 10 MG BID POAcetaminophen (Tylenol) 650 MG Q4HPRN PRN POAcetaminophen (Tylenol) 650 MG Q4HPRN PRN POAl Hydrox/Mg Hydrox/Simethicone (Maalox) 15 ML QIDPRN PRN POHydroxyzine (Atarax) 50 MG Q4HPRN PRN POMagnesium Hydroxide (Mom) 10 ML QHSPRN PRN POTrazodone HCl (Desyrel) 50 MG QHSPRN PRN POTuberculin PPD (Mantoux) 5 UNIT ONCE PRN IDLoratadine (Claritin) 10 MG DAILY POExaminationMusculoskeletalMuscle Strength & Tone normalGait normalStation normalResultsResults Ordered/ReviewedLab Tests ordered, patient refused am labs; has agreed to have themcompleted. Awaiting for lab to come and draw her labs at time of this dictationAssessment/PlanDiagnosis1. Suicide attemptStatus Acute2. Major depressive disorderStatus Chronic3. Bipolar affective disorderStatus Chronic4. Borderline personality disorderStatus Chronic5. Obesity, morbidStatus ChronicCoordination of care provided with nursing staff, treatment teamRisk/benefits discussed contraindictions, expected therapeutic effe, sideeffects, weight gain/lossJustification for continued stay danger to self/othersDATE SIGNED: 01/29/21 Electronically SignedTIME SIGNED: 1058 BOGDAN ALMAGUER MD Name Value Range Interpretation Code Description Data Stephanie rce(s) Supporting Document(s) ID Date Data Source [id number] 01/28/2021 10:27:00 AM EDT [facility] REFUSED Name Value Range Interpretation Code Description Data Stephanie rce(s) Supporting Document(s) CKI 139 U/L 17-150 [facility] ID Date Data Source [id number] 01/28/2021 10:27:00 AM EDT [facility] RE[facility] Name Value Range Interpretation Code Description Data Stephanie rce(s) Supporting Document(s) GLU 103 mg/dL 70-110 [facility] Patients taking Sulfasalazine may have f alsely depressedGlucose levels. Patients taking Sulfapyridine may havefalsely elevated Glucose levels. Patients should be drawnfor Glucose before the initial administration of eitherdrug. BUN 22 mg/dL 7-23 [facility] CRE 0.589 mg/dL 0.500-1.300 [facility] GFR > 60 mL/min [facility] CHLORIDE 109 mmol/L 99-110 [facility] NA 141 mmol/L 136-147 [facility] POTASSIUM 3.9 mmol/L 3.5-5.1 [facility] TCO2 24 mmol/L 20-33 [facility] ANION GAP 11.9 10.0-20.0 [facility] CA 8.9 mg/dL 8.3-10.7 [facility] ALKALINE PHOS 113 U/L 45-117 [facility] TP 7.6 g/dL 6.0-7.8 [facility] ALB 3.8 g/dL 3.5-5.0 [facility] ESRD Dialysis patient Albumin reference range: 2.9-4.4 g/dL GL 3.8 g/dL 2.3-3.5 [facility] A/G 1.0 1.0-2.5 [facility] T. BILIRUBIN 0.6 mg/dL 0.1-1.1 [facility] [place] Total Bilirubin is n ot recommended forpatients undergoing treatment with eltrombopag (Promacta)due to the potential for falsely elevated results. ALTI 43 U/L 6-54 [facility] Patients taking Sulfasalazine and/or Sul fapyridine may havefalsely depressed ALT levels. Patients should be drawn forALT before the initial administration of either drug. AST 22 U/L 6-38 [facility] Patients taking Sulfasalazine and/or Sul fapyridine may havefalsely depressed AST levels. Patients should be drawn forAST before the initial administration of either drug. ID Date Data Source [id number] 01/28/2021 10:22:00 AM EDT [facility] Name Value Range Interpretation Code Description Data Stephanie rce(s) Supporting Document(s) WBC 5.96 x10E3/uL 4.0-10.5 [facility] RBC 4.47 x10E6/uL 4.20-5.40 [facility] Hemoglobin 13.4 g/dL 12.0-16.0 [facility] Hematocrit 39.5 % 37.0-47.0 [facility] MCV 88.4 fL 81.0-99.0 [facility] MCH 30.0 pg 27.0-31.0 [facility] MCHC 33.9 g/dL 32.7-35.6 [facility] RDW 12.0 % 11.5-14.0 [facility] Platelet count 256 x10E3/uL 150-450 [facility] ital MPV 9.5 fl 6.9-9.5 [facility] Neutrophils 55.0 % 34-64 [facility] Lymphocytes 35.9 % 25-45 [facility] Monocytes 6.5 % 1.7-10.6 [facility] Eosinophils 1.8 % 0.4-7.0 [facility] Basophils 0.3 % 0.1-2.0 [facility] Imm. Gran. 0.5 % 0.1-2.0 [facility] Abs. Neutro. 3.27 x10E3/uL 1.2-7.6 [facility] Abs. Lymph. 2.14 x10E3/uL 1.0-3.5 [facility] Abs. Bryan. 0.39 x10E3/uL 0.1-1.0 [facility] Abs. Eosin. 0.11 x10E3/uL 0.1-0.7 [facility] Abs. Baso. 0.02 x10E3/uL 0.0-0.1 [facility] Abs. Imm. Gran. 0.03 x10E3/uL 0.0-0.1 [facility] spital ANRBC% 0 % 0 [facility] ID Date Data Source [id number] 01/28/2021 09:45:00 AM EDT [facility] [address] HEALTH PROGRESS NOTEPATIENT NAME: YARELI HATCH PHYSICIAN: BROOKLYN ONEILL MDAUTHOR: Lana Aquino. DATE: 01/03/21 MR#: [id number] NOTE DATE: 01/28/21 RM#: 308EVALUATION TIME: 954 is a 20-year-old white female.CC/Hx Present Illness"I overdosed"Events Since Last EntryPatient met with team today as unkempt and malodorous despite her claim to haveshowered this a.m. Patient presented overly bright and euphoric. She statedher mood was related to no longer wanting to feel how she did this weekendleading up to her restraints. Patient stated she had a good day yesterday butthat she did sleep most of the day. Patient stated her night was "okay" andthat she did wake up many times throughout the night but just remained in bed.Patient stated she is trying to st ay out of the "drama" on the unit. She wasverbally praised by staff regarding her appropriate behavior yesterday and thisa.m. We discussed attempting to learn some life skills today. Patient statedcecil was embarrassed to say what she wished to learn; with prompting andencouragement she informed staff she would like to learn how to cook somesimple items. She was told this could be arranged but only if she coulddemonstrate she was in control of her behavior and focused on the task at handand not acting out or demonstrating unsafe behaviors. Patient stated she wasexcited to learn how to cook something simple like easy Mac. Patient statedcecil was eating well. Patient did refuse to have her lab work done this a.m.and when this was discussed she stated "I am fine" in the clinical reasons whythe lab work has been ordered was again explained to her. Patient didreluctantly agreed to have her lab work completed. The charge nurse who waspresent during the meeting said she would call the lab and have them come backup to draw her labs. Patient states she has been compliant with hermedications but did state the last few mornings she has been experiencing someintense headaches. We discussed the benefits of increasing her Topamax and sheagreed to this. She denies experiencing any ill side effects from hermedications. She currently denies any thoughts of suicide and/or thoughts ofwanting to harm others.Mental status exam: Patient was alert and oriented to person, place, time.Patient was engaged and better able to concentrate today. Patient's speech wasrapid and pressured. Patient's mood was euphoric and affect was overly bright.Patient's thoughts were superficially organized and loose. She did not appearto be responding to internal stimuli, does not appear to be experiencing anyform of hallucinations, and does not demonstrate any paranoia or delusions.Patient's insight and judgment continue to be poor. Decision-making capacityis also impaired.Plan: Continue with current medication regimen with an increase in Topamax to50 mg from 25 mg daily. Continue with current treatment plan. Provide a safeenvironment and monitor for unsafe behaviors. Continue to engage patient andlife skills training. Monitor for side effects of medications. Patient deniesany physical/medical problems at this time. Continue to await bed availabilityat [facility] for housing.ObjectiveVital SignsVital Signs-LastResult Date TimeB/P 97/53 01/28 0939Temp 98.1 01/27 1100Pulse Ox 98 01/26 1100Pulse 77 01/26 1100Resp 16 01/26 1100ExaminationMusculoskeletalMuscle Strength & Tone normalGait normalStation normalResultsResults Ordered/ReviewedLab Tests ordered, patient refused am labs; has agreed to have themcompleted. Awaiting for lab to come and draw her labs at time of this dictationAssessment/PlanDiagnosis1. Suicide attemptStatus Acute2. Major depressive disorderStatus Chronic3. Bipolar affective disorderStatus Chronic4. Borderline personality disorderStatus Chronic5. Obesity, morbidStatus ChronicCoordination of care provided with nursing staff, treatment teamRisk/benefits discussed contraindictions, expected therapeutic effe, sideeffects, weight gain/lossJustification for continued stay danger to self/others, behavior intolerableDATE SIGNED: 01/28/21 Electronically SignedTIME SIGNED: 954 DYLAN CABRERA Name Value Range Interpretation Code Description Data Stephanie rce(s) Supporting Document(s) ID Date Data Source [id number] 01/27/2021 10:15:00 AM EDT [place] [id number] HEALTH PROGRESS NOTEPATIENT NAME: DAMARISYARELI YA PHYSICIAN: BROOKLYN ONEILL MDAUTHOR: Lana Aquino. DATE: 01/03/21 MR#: [id number] NOTE DATE: 01/27/21 RM#: [id number] TIME: 1114 is a 20-year-old white female.CC/Hx Present Illness"I overdosed"Events Since Last EntryPatient met with team today and presented as disheveled, unkempt, andmalodorous. Present were myself, practice coordinator, and charge nurse.Weekend events were discussed. Patient stated she had a good day on Wednesdayand that on Wednesday "not so good". Patient was in four-point restraints 4 timesyesterday for aggressive and self-injurious behaviors. When this was broughtto her attention to be discussed she dismissed this topic and focused herattention on being "tired". When we attempted to discuss her behaviors, eachtime she avoided the topic and would not comment or discuss it. Patient statesthat she is suicidal and because of this she cannot be discharged anywhere. Asnight patient went to her roommate and took her bed linen and attempted tostrangle herself again with this however staff were present and she was notable to follow through. She became aggressive and assaul tive and was placed infour-point restraints. Patient continues to have in order to not have her ownpersonal bed sheets due to this impulsive behavior. And this was brought up toher she avoided the topic and refused to discuss it any further. Patient didnot have good eye contact during the meeting. Patient was focused on havingmore one-on-one attention with her practice coordinator. She was told due toher behaviors over the weekend and this morning, which were her refusing to getout of bed and cooperate with the mornings routine, she was told that as perher discussed behavior plan her 30 minutes would be pushed back to 15 minutes.Patient appeared agitated and angry at this. She was reminded that herbehaviors, which she is in control of, predict her privileges. She was not asengaged in the meeting as she has been previously. She was resistive todiscussing her behaviors and [facility] planning [facility]Mental status exam: Patient was alert and oriented to person, place, time.Patient was easily distracted and unengaged. Her speech was pressured and loudat times. Her mood was angry and affect was anxious. Thought process wasdisorganized and circumstantial. There was no note of internal stimulation, noevidence of hallucinations, and she did not project any paranoia or delusions.Patient states that she has suicidal thoughts but would not divulge a plan orif she had any intent. Patient denies having any homicidal ideations. Herinsight and judgment are poor. Decision-making capacity is impaired.Plan:Continue with current treatment plan and medication regimen. Continue toprovide a safe environment, monitored for side effects from medications andmanage behaviors associated with inappropriate acts. Continue with behaviorplan, teaching life skills, and encouragement of appropriate behaviors. Labswill be ordered to compare her prior labs due to the multiple PRN s she hasbeen receiving. Still awaiting bed availability at [facility] for housing as per [facility]. She currently denies any physical/medical complaints.ObjectiveVital SignsVital Signs-LastResult Date TimeB/P 119/67 01/27 0938Pulse Ox 98 01/26 1100Temp 97.4 01/26 1100Pulse 77 01/26 1100Resp 16 01/26 1100ExaminationMusculoskeletalMuscle Strength & Tone normalGait normalStation normalResultsResults Ordered/ReviewedLab Tests orderedAssessment/PlanDiagnosis1. Suicide attemptStatus Acute2. Major depressive disorderStatus Chronic3. Bipolar affective disorderStatus Chronic4. Borderline personality disorderStatus Chronic5. Obesity, morbidStatus ChronicCoordination of care provided with nursing staff, treatment teamRisk/benefits discussed contraindictions, expected therapeutic effe, sideeffectsJustification for continued stay danger to self/others, behavior intolerableDATE SIGNED: 01/27/21 Electronically SignedTIME SIGNED: 1114 DYLAN CABRERA Name Value Range Interpretation Code Description Data Stephanie rce(s) Supporting Document(s) ID Date Data Source [id number] 02/03/2021 11:47:00 AM EDT [address] HEALTH PROGRESS NOTEPATIENT NAME: YARELI HATCH CATTENGIOVANNY PHYSICIAN: BROOKLYN ONEILL MDAUTHOR: Ana Win. DATE: 01/03/21 MR#: [id number] NOTE DATE: 01/26/21 RM#: [id number] TIME: 1154 is a 20-year-old white female.CC/Hx Present Illness"I overdosed"Events Since Last EntryDuring this course, Yareli asked if she could be seen to talk. She is in agood mood. She complains that staff isn't listening to her, even when sheshould them the keisha she made on her right forearm. She said this was fromharming herself with a puzzle piece. She asks to be on a 1:1 because she doesn't no how to use coping skills but instead is reminded of coping skills she hasused in the past and she agrees to try these. Yareli said she has been upsetbecause her brother has been mean to her on the phone. She also states herboyfriend broke up with her but it was only a prank. She is calm andappropriate during this meeting.Review of SystemsSkinReports: abrasion (applied ointment/dressing).ObjectiveVital SignsVital Signs-LastResult Date TimePulse Ox 98 02/03 1020B/P 112/80 02/03 1020Temp 97.1 02/03 1020Pulse 75 02/03 1020Resp 15 02/03 1020Current MedicationsNicotine (Nicorette) 2 MG Q2HPRN PRN POLoratadine (Claritin) 10 MG DAILY POAl Hydrox/Mg Hydrox/Simethicone (Maalox) 15 ML QIDPRN PRN POPropranolol HCl (Inderal) 10 MG BID POAcetaminophen (Tylenol) 650 MG Q4HPRN PRN POAcetaminophen (Tylenol) 650 MG Q4HPRN PRN POHydroxyzine (Atarax, Vistaril) 25 MG Q4HPRN PRN POMagnesium Hydroxide (Mom) 10 ML QHSPRN PRN POTrazodone HCl (Desyrel) 50 MG QHSPRN PRN POMontelukast Sodium (Singulair) 10 MG DAILY POSertraline HCl (Zoloft) 150 MG DAILY POTopiramate (Topamax) 50 MG DAILY POIbuprofen (Motrin) 600 MG TIDPRN PRN POLurasidone HCl (Latuda) 80 MG 2000 POLurasidone HCl (Latuda) 80 MG DAILY PONicotine (Nicorette) 2 MG Q2HPRN PRN POExaminationMusculoskeletalMuscle Strength & Tone normalGait normalStation normalMental Status ExaminationSpeech normalThought Process illogicalThought Content abnormalAssociations tangentialAbnormal or Psychotic Thoughts somaticPatient's Judgement poorInsight poorReality Testing compromisedDecision Making Capacity compromisedMental StatusOrientation time, place, person, nameRecent & Remote Memory intactMood calmAffect appropriateResultsResults Ordered/ReviewedLab Tests reviewedAssessment/PlanDiagnosis1. Suicide attemptStatus Acute2. Major depressive disorderStatus Chronic3. Bipolar affective disorderStatus Chronic4. Borderline personality disorderStatus Chronic5. Obesity, morbidStatus Chronic6. Suicidal ideationCoordination of care provided with nursing staff, treatment teamRisk/benefits discussed expected therapeutic effe, side effectsJustification for continued stay danger to self/othersDATE SIGNED: 02/03/21 Electronically SignedTIME SIGNED: 1154 FRANTZ GIORDANO Name Value Range Interpretation Code Description Data Stephanie rce(s) Supporting Document(s) ID Date Data Source [id number] 01/24/2021 09:36:00 AM EDT [place] [id number] HEALTH PROGRESS NOTEPATIENT NAME: YARELI HATCH PHYSICIAN: BROOKLYN ONEILL MDAUTHOR: Lana Aquino. DATE: 01/03/21 MR#: [id number] NOTE DATE: 01/24/21 #: 308EVALUATION TIME: 951 is a 20-year-old white female.CC/Hx Present Illness"I overdosed"Events Since Last EntryPatient presented as unkempt, disheveled and malodorous today. We discussedMarilu's good behaviors from yesterday and we also discussed boundaries todayin regards to staff and her practice coordinator. Patient became upset whenwe discussed boundaries and limits that need to be put into place on theexcessive amount of interruptions she provides daily to both staffing and hertreatment coordinator. She became argumentative and admits read andmisinterpreted what was being said to her and turned what ever was said aroundto make her the victim. These behaviors have been pointed out to her and whenthey were her irritability increased as did her aggressive tone in her voice.Adrienne did receive a as needed this a.m. prior to meeting with team. She statedit was because given "I am sick of being bullied and nobody doing anythingabout it". Charge nurse was present for the meeting and corrected herstatement by stating that every time yesterday and this morning she broughtbullying to her attention she addressed this concern. At 1 point during themeeting patient interrupted what ever the other person was saying to interjecther objections and distorted interpretations of what was actually being said.Behavior plan was discussed with her again and she says that she does not agreewith having a behavior plan nor does she believe she needs one. Brought up herhousing [facility] and states that she refuses to go there and that she will only gothere if made to and that as soon as she gets there she will fail and return.Was unable to concentrate and stay focused. Her mood continued to escalateduring the meeting to the point where she was asked to leave as it was nolonger therapeutic for her to engage in this behavior. She stood up and leftthe meeting saying something under her breath that was not audible to myself,the practice coordinator or the charge nurse.Mental status exam: Patient was alert and oriented to person, place, time. Shewas easily distracted throughout the meeting and unable to focus andconcentrate on one topic. Her thought process was highly disorganized andcircumstantial. There is no note of internal stimulation, hallucinations orparanoia. Content is free of suicidal and homicidal ideations. Insight andjudgment are poor. Decision making capacity is impaired.Plan: Continue with current medication regimen. Monitor for side effects tomedications. Provide a safe environment in coordination with nursing staff.Continue to await bed availability at [facility]. Patient currently d enies anymedical/physical complaints.ObjectiveVital SignsVital Signs-LastResult Date TimeB/P 112/78 01/24 0813Temp 96.1 01/24 0714Pulse Ox 98 01/23 1124Pulse 93 01/23 1124Resp 16 01/23 1124ExaminationMusculoskeletalMuscle Strength & Tone normalGait normalStation normalResultsResults Ordered/ReviewedLab Tests patient continues to refuse her lab workAssessment/PlanDiagnosis1. Suicide attemptStatus Acute2. Major depressive disorderStatus Chronic3. Bipolar affective disorderStatus Chronic4. Borderline personality disorderStatus Chronic5. Obesity, morbidStatus ChronicCoordination of care provided with nursing staff, treatment teamRisk/benefits discussed contraindictions, expected therapeutic effe, sideeffectsJustification for continued stay danger to self/others, behavior intolerableDATE SIGNED: 01/24/21 Electronically SignedTIME SIGNED: 951 DYLAN CABRERA Name Value Range Interpretation Code Description Data Stephanie rce(s) Supporting Document(s) ID Date Data Source [id number] 01/23/2021 09:20:00 AM EDT [address] HEALTH PROGRESS NOTEPATIENT NAME: YARELI HATCH PHYSICIAN: BROOKLYN ONEILL MDAUTHOR: Dylan AquinoADM. DATE: 01/03/21 MR#: [id number] NOTE DATE: 01/23/21 RM#: 308EVALUATION TIME: 935 is a 20-year-old white female.CC/Hx Present Illness"I overdosed"Events Since Last EntryPresented today as cooperative and pleasant. In the meeting today the chargenurse was present, myself, and her practice coordinator Madelin. We discussedthe events yesterday that led her to asking for a as needed of medication.Patient stated the stimuli on the unit contributed to her and the frictionbetween her and several of her peers is what she states led to her asking for aas needed. Patient stated she asked for the as needed before she "flipped out". Patient also wrote a letter inputted underneath the practice coordinator'sdoor and inquired about this. This was discussed with her and she was informedthis was a good demonstration of how to use her coping skills. We discussedher behavior plan, how it was going to be developed, and what things she canexpect in it. We continue to discuss life skills. Yesterday she approachedstaff and inquired on how to use a sanitary napkin appropriately. She iscurrently on her menses and was noted to be bleeding through her clothing andassessing as to why it was determined it was due to her lack of knowledge onhow to properly care for herself in that manner. She was taught on how toproperly cleanse herself, how to properly manage her menses. And how toproperly use sanitary napkins. We discussed this today during teaming andaside from being embarrassed she did express gratitude. States she is nervousto accept the help into engage in the various life skills we talked about butthat she did state she is willing to try. She states she s lept well last nightand that she is eating appropriately and properly to maintain her diet. We diddiscuss how to overcome her feelings of anger and frustration she has towards afew of her peers and the different coping skills that she can use. He statesshe has been taking her medications and that she is not experiencing any illside effects from them. She denies any physical and/or medical complaints.Mental status exam: Patient was alert and oriented to person, place, time.Patient appeared to be engaged but was easily distracted when focusing oncoping skills and life skills. Patient's speech was pressured and loud. Hermood was euphoric and affect was overly bright. Her thoughts weresuperficially organized and circumstantial. There is no note of hallucinations, paranoia, or responding to internal stimuli. Patient denies any suicidal and/or homicidal ideations. Patient's insight and judgment are questionable.Decision-making capacity is compromised.Plan: Continue with current medication regimen. Monitor for side effects ofpsychotropic medication use. Monitor weight. Continue working on behaviorplan and working with staff to implement and coordinate her plan of care.Continuing to await bed availability at [facility].ObjectiveVital SignsVital Signs-LastResult Date TimeB/P 118/78 01/23 0818Temp 96.5 01/23 0641Pulse Ox 98 01/22 1139Pulse 73 01/22 1139Resp 16 01/22 1139ExaminationMusculoskeletalMuscle Strength & Tone normalGait normalStation normalResultsResults Ordered/ReviewedLab Tests patient continues to refuse her lab workAssessment/PlanDiagnosis1. Suicide attemptStatus Acute2. Major depressive disorderStatus Chronic3. Bipolar affective disorderStatus Chronic4. Borderline personality disorderStatus Chronic5. Obesity, morbidStatus ChronicCoordination of care provided with nursing staff, treatment teamRisk/benefits discussed contraindictions, expected therapeutic effe, sideeffects, weight gain/lossJustification for continued stay danger to self/others, behavior intolerableDATE SIGNED: 01/23/21 Electronically SignedTIME SIGNED: 935 DYLAN CABRERA Name Value Range Interpretation Code Description Data Stephanie rce(s) Supporting Document(s) ID Date Data Source [id number] 01/22/2021 11:07:00 AM EDT [address] HEALTH PROGRESS NOTEPATIENT NAME: YARELI HATCH PHYSICIAN: BROOKLYN ONEILL MDAUTHOR: Dylan AquinoADM. DATE: 01/03/21 MR#: [id number] NOTE DATE: 01/22/21 RM#: 308EVALUATION TIME: 1116 is a 20-year-old white female.CC/Hx Present Illness"I overdosed"Events Since Last EntryWith patient on the unit today as it was not safe to meet with her in a closesetting due to her impulsive and dangerous behaviors from earlier this morning.Patient was in four-point restraints this a.m. due to violent acts towardsstaff, herself, and verbal threats to harm others. Discussed the use of four-point restraints with her and she was unable to accept responsibility for herown behaviors stating "it was not my fault I why I went into restraints. It isbecause it is my brothers birthday." Patient was tearful at times whenspeaking during the meeting again deflecting any responsibility for her ownactions. Charge nurse sat in on this meeting as well in an attempt to promoteconsistency. Behavior plan was discussed with patient as well and she appearedto be on board with it. Patient took all a.m. medications as well as lastnight's medications. Patient also had 2 phone calls last night which ended inher acting out and being placed into four-point restraints. This was alsodiscussed with her and she again did not accept responsibility for her actions,rather, she said it was "staff's fault".Mental status exam: She was alert and oriented to person place and time.Patient's concentration is poor and she is easily distracted. Patient's moodand affect is labile, thought process is superficially disorganized and thereis some circumstantiality. Patient is not experiencing any form ofhallucinations, is not responding to internal stimuli, and denies hearing anyvoices. Thought content is free of homicidal and suicidal ideations. Patient's insight and judgment is poor. Decision making capacityi is impairedPlan: Continue with current medication regimen. Work with the treatment teamand nursing staff in the development of a behavior plan. Monitor for safetyfor both patient and staff. Continue to await for bed availability at [facility].Patient denies any physical and/or medical concerns at this time.ObjectiveVital SignsVital Signs-LastResult Date TimeB/P 118/78 01/22 0947Temp 97.3 01/22 0631Pulse Ox 98 01/21 1214Pulse 82 01/21 1214Resp 16 01/21 1214ExaminationMusculoskeletalMuscle Strength & Tone normalGait normalStation normalResultsResults Ordered/ReviewedLab Tests patient continues to refuse her lab workAssessment/PlanDiagnosis1. Suicide attemptStatus Acute2. Major depressive disorderStatus Chronic3. Bipolar affective disorderStatus Chronic4. Borderline personality disorderStatus Chronic5. Obesity, morbidStatus ChronicCoordination of care provided with nursing staff, treatment teamRisk/benefits discussed contraindictions, expected therapeutic effe, sideeffectsJustification for continued stay danger to self/othersDATE SIGNED: 01/22/21 Electronically SignedTIME SIGNED: 1116 DYLAN CABRERA Name Value Range Interpretation Code Description Data Stephanie rce(s) Supporting Document(s) ID Date Data Source [id number] 01/21/2021 08:25:00 AM EDT [address] HEALTH PROGRESS NOTEPATIENT NAME: YARELI HACTH CATSALVADOR PHYSICIAN: BROOKLYN ONEILL MDAUTHOR: Lana Aquino. DATE: 01/03/21 MR#: [id number] NOTE DATE: 01/21/21 RM#: [id number] TIME: 1000 is a 20-year-old white female.CC/Hx Present Illness"I overdosed"Events Since Last EntryLast night patient became upset after two phone calls with her brother. Patientrequested an injection and received geodon and ativan. She then, shortlythereafter, barricaded herself in her room and engaged in self injurious actsagainst herself. She had concealed a sport on her person and reopened anabrasion on her forearm from a previous day. This was discussed with her thismorning and she accepted no responsibility for her actions rather she skirtedaround the topic to avoid discussion. Talked about talking with her brotherlast evening and how this upset her despite her anger and feelings offrustration she continued to reach out to him which fueled her drama. Hecontinued to derail the conversation focused on her behaviors last evening butafter several attempts we were able to discuss last evening's events. Sheadmits to acting impulsively but states it was because of her brother. Shesaid that if her brother was not "mean" then she would have been "fine". Shetalked nonstop for several minutes regarding contacting her adoptive parentsand seeking out a relationship with them. We discussed the pros and cons ofdoing so told her it was ultimately her decision however she was asked to thinkabout how she would react if the outcome she was looking for was not to happen.She was informed of being placed on finger foods only and she accepted thispropria and stated she understood the rationale. She was cooperative andpleasant during the meeting. She was appropriately dressed and hygiene wasadequate. During the entire meeting she was focused on establishing arelationship with her adoptive parents.Mental status exam: Patient was alert and oriented to person place and time.Concentration is fair, speech is pressured and hyperverbal, mood is elatedaffect is overly bright, thought process is logical and circumstantial. Thereis no note of hallucinations, delusions, and s he does not appear to beresponding to internal stimuli. She denies any suicidal ideations and/or urgesto harm others. Patient's insight is limited judgment is poor, decision makingcapacity is compromised.Plan: Continue with current medications, development of life skills, monitoringof side effects from medications, and maintaining safety. Patient is now onfinger foods and if she continues to obtain objects during mealtime that canimpede her safety she may need to be placed on a level 1 observation duringmealtimes. Continue to wait for an open bed at [facility] for housing.ObjectiveVital SignsVital Signs-LastResult Date TimeB/P 126/80 01/21 0821Pulse Ox 97 01/20 1100Temp 97.5 01/20 1100Pulse 81 01/20 1100Resp 15 01/20 1100ExaminationMusculoskeletalMuscle Strength & Tone normalGait normalStation normalResultsResults Ordered/ReviewedLab Tests patient continues to refuse her lab workAssessment/PlanDiagnosis1. Suicide attemptStatus Acute2. Major depressive disorderStatus Chronic3. Bipolar affective disorderStatus Chronic4. Borderline personality disorderStatus Chronic5. Obesity, morbidStatus ChronicCoordination of care provided with nursing staff, treatment teamRisk/benefits discussed contraindictions, expected therapeutic effe, sideeffectsJustification for continued stay danger to self/others, behavior intolerableDATE SIGNED: 01/21/21 Electronically SignedTIME SIGNED: 1000 DYLAN CABRERA Name Value Range Interpretation Code Description Data Stephanie rce(s) Supporting Document(s) ID Date Data Source [id number] 01/20/2021 11:20:00 AM EDT [address] [id number] [facility] PROGRESS NOTEPATIENT NAME: YARELI HATCH PHYSICIAN: BROOKLYN ONEILL MDAUTHOR: Gema WHITE,DylanADM. DATE: 01/03/21 MR#: [id number] NOTE DATE: 01/20/21 RM#: 3RDOVERFLEVALUATION TIME: 1255 is a 20-year-old white female.CC/Hx Present Illness"I overdosed"Events Since Last EntryMet with team today and was cooperative and alert. During the meeting patientwas giggling and laughing when asked questions. Patient does admit toreceiving a PRN yesterday but states it was due to her request but would not goon as to why she requested the PRN. Patient stated she had a spork on herperson as a joke to see if anybody would notice. [facility] barge done and found her with this itemshe said she had no intent to use it as a means to harm herself but thisremains questionable due to her impulsivity. She does admit to using a pieceof a puzzle against her skin to a brace that but states she did this becauseshe was frustrated and when asked what she was frustrated about she said shedid not wish to get into it. She was asked about her relationship with a malepeer on the unit and she said they were friends anymore and that she no longerwanted to talk about it. During the meeting she was nonchalant, would notdirectly answer questions and less repeatedly asked and then asked why she wasnot answering the question. Asked about her medications she said that shewishes to keep them as they are. She denies experiencing any side effects tothese medications. He says she is sleeping and eating well. When asked if shehad any thoughts of harming herself she laughed and giggled and stated I do notknow. He was asked if she had any plans or intent on hurting herself and shesaid she did not. She denies hearing any voices. [facility] bed [facility].Mental status exam: Patient was alert and oriented to person, place, time.Patient was cooperative but reluctant with her responses to questions. Patientwas not able to demonstrate any insight into the reasons why she acted in self-injurious behaviors this weekend and she continues to demonstrate poorjudgment. She was easily distracted during the meeting, her speech waspressured and rapid. Her mood was anxious and her affect was overly brightwith intense eye contact. Her thoughts were superficially organized a ndcircumstantial. Unsure of thought content due to her impulsivity self-harm andsuicidal ideations should be suspected. She does not appear to be respondingto any internal stimulation, does not appear to be experiencing any form ofhallucinations, and is free of paranoia and delusions. Her ability to makedecisions is impaired.Plan: Continue with current treatment plan and instillation of life skills.Continue with current medications, monitoring for side effects, and monitoringfor safety. Continue to await bed [facility]. Lab work will again be ordered and patient will be encouraged toparticipate in the lab work with education provided as to why the order for labwork. Patient currently denies any physical or medical problems at this time.ObjectiveVital SignsVital Signs-LastResult Date TimePulse Ox 97 01/20 1100B/P 118/56 01/20 1100Temp 97.5 01/20 1100Pulse 81 01/20 1100Resp 15 01/20 1100ExaminationMusculoskeletalMuscle Strength & Tone normalGait normalStation normalResultsResults Ordered/ReviewedLab Tests ordered, patient continues to refuse her lab workAssessment/PlanDiagnosis1. Suicide attemptStatus Acute2. Major depressive disorderStatus Chronic3. Bipolar affective disorderStatus Chronic4. Borderline personality disorderStatus Chronic5. Obesity, morbidStatus ChronicCoordination of care provided with nursing staff, treatment teamRisk/benefits discussed contraindictions, expected therapeutic effe, sideeffects, weight gain/lossJustification for continued stay danger to self/others, behavior intolerableDATE SIGNED: 01/20/21 Electronically SignedTIME SIGNED: 4045 DYLAN CABRERA Name Value Range Interpretation Code Description Data Stephanie rce(s) Supporting Document(s) ID Date Data Source [id number] 01/18/2021 09:57:00 AM EDT [facility] Name Value Range Interpretation Code Description Data Stephanie rce(s) Supporting Document(s) CHOL 182 mg/dL 100-200 [facility] TRIG 118 mg/dL 30-190 [facility] HDL 52 mg/dL 35-80 [facility] LDL DIRECT 111 mg/dL 0-100 [facility] VLDL 19 mg/dL 0-100 [facility] ID Date Data Source [id number] 01/18/2021 09:57:00 AM EDT [facility] Name Value Range Interpretation Code Description Data Stephanie rce(s) Supporting Document(s) GLU 113 mg/dL 70-110 [facility] Patients taking Sulfasalazine may have f alsely depressedGlucose levels. Patients taking Sulfapyridine may havefalsely elevated Glucose levels. Patients should be drawnfor Glucose before the initial administration of eitherdrug. BUN 17 mg/dL 7-23 [facility] CRE 0.741 mg/dL 0.500-1.300 [facility] GFR > 60 mL/min [facility] CHLORIDE 107 mmol/L 99-110 [facility] NA 142 mmol/L 136-147 [facility] POTASSIUM 4.4 mmol/L 3.5-5.1 [facility] TCO2 30 mmol/L 20-33 [facility] ANION GAP 9.4 10.0-20.0 [facility] CA 9.2 mg/dL 8.3-10.7 [facility] ALKALINE PHOS 111 U/L 45-117 [facility] TP 7.3 g/dL 6.0-7.8 [facility] ALB 3.9 g/dL 3.5-5.0 [facility] ESRD Dialysis patient Albumin reference range: 2.9-4.4 g/dL GL 3.4 g/dL 2.3-3.5 [facility] A/G 1.1 1.0-2.5 [facility] T. BILIRUBIN 0.5 mg/dL 0.1-1.1 [facility] Total Bilirubin is n ot recommended forpatients undergoing treatment with eltrombopag (Promacta)due to the potential for falsely elevated results. ALTI 57 U/L 6-54 [facility] Patients taking Sulfasalazine and/or Sul fapyridine may havefalsely depressed ALT levels. Patients should be drawn forALT before the initial administration of either drug. AST 31 U/L 6-38 [facility] Patients taking Sulfasalazine and/or Sul fapyridine may havefalsely depressed AST levels. Patients should be drawn forAST before the initial administration of either drug. ID Date Data Source [id number] 01/17/2021 10:24:00 AM EDT [address] PROGRESS NOTEPATIENT NAME: YARELI HATCH [facility] PHYSICIAN: BROOKLYN ONEILL MDAUTHOR: Gema WHITE,Lana. DATE: 01/03/21 MR#: [id number] NOTE DATE: 01/17/21 RM#: [id number] TIME: 1036 is a 20-year-old white female.CC/Hx Present Illness"I overdosed"Events Since Last EntryAgain today the patient presented upon entering treatment team meeting with dayton stanley. He states she feels good today and that she hada good night sleep and a good day yesterday as well. She brought up changingher medications from Latuda to Abilify and when asked why she said she is notsure but that thought may be it would be better for her. The pros and cons ofa medication change were discussed with her and she was given the choice toeither stay on her Latuda or to change to Abilify. After further discussion hevoluntarily made the choice to stay on her Latuda. She denies having aheadache yesterday. She denies experiencing any ill side effects from herpsychotropic medications and she also denies having any physical complaints.He said she spoke with her intensive case management assistant yesterday, Eve and theycompleted the enrollment paperwork required the intensive case managementprogram. She also said she spoke with Lorraine [facility] bed [facility] andaccording to the director of the [facility] program there is still no open beds.Marilu reacted appropriately when she was informed that she needs to attendto her hygiene; she agreed with team she was in need of a shower. She didbecome upset but was redirectable when asking about lab work. It was explainedto her the rationale for the lab work however with a smirk on her face she saidshe will again refuse; she was told it was well within her right to refuse labwork however will still be ordered so she can be properly monitored by hertreatment team.Mental status examPatient was oriented to person place and time, she was engaged throughout themeeting, her speech remains pressured and rapid at times. Her mood waseuphoric and her affect was bright, eye contact was good, her thoughts weresuperficially organized and circumstantial. There was no evidence ofhallucinations of any type and there was no evidence of delusions. She denieshaving any suicidal thoughts at this time and she also denies having anythoughts or urges to harm others. Her insight and judgment remain impaired asdoes her ability to make appropriate decisions for her wellbeing.PlanContinue with treatment plan and with skills training. Continue with creationof behavior plan with staff's input. Liver function test will be ordered.Continue with current Magic medication regimen monitor for side effects ofpsychotropic medications, purpuric effective medication and continue withmaintaining a safe and appropriate environment. She denies any medicalcomplaints at this current time.ObjectiveVital SignsVital Signs-LastResult Date TimeB/P 135/90 01/17 0936Pulse Ox 99 01/16 1100Temp 97.5 01/16 1100Pulse 76 01/16 1100Resp 18 01/16 1100ExaminationMusculoskeletalMuscle Strength & Tone normalGait normalStation normalResultsResults Ordered/ReviewedLab Tests orderedAssessment/PlanDiagnosis1. Suicide attemptStatus Acute2. Major depressive disorderStatus Chronic3. Bipolar affective disorderStatus Chronic4. Borderline personality disorderStatus Chronic5. Obesity, morbidStatus ChronicCoordination of care provided with nursing staff, treatment teamRisk/benefits discussed contraindictions, expected therapeutic effe, sideeffects, weight gain/lossJustification for continued stay danger to self/others, behavior intolerableDATE SIGNED: 01/17/21 Electronically SignedTIME SIGNED: 1036 DYLAN CABRERA Name Value Range Interpretation Code Description Data Stephanie rce(s) Supporting Document(s) ID Date Data Source [id number] 01/16/2021 01:40:00 PM EDT [address] HEALTH PROGRESS NOTEPATIENT NAME: YARELI HATCH PHYSICIAN: BROOKLYN ONEILL MDAUTHOR: Lana Aquino. DATE: 01/03/21 MR#: [id number] NOTE DATE: 01/16/21 RM#: 3RDOVERFLEVALUATION TIME: 1413 is a 20-year-old white female.CC/Hx Present Illness"I overdosed"Events Since Last EntryPatient presented to teaming today in hospital scrubs, unkempt in appearance,and extremely malodorous. Patient was overly bright and cheerful and whenasked about her mood she shrugged her shoulders and related to sleeping welllast night. Occasions were discussed and she said she was not currentlyexperiencing any ill side effects from her medications nor did she offer orhave any physical complaints or medical problems. She was informed of abehavior plan that is currently in the planning stages and she said when thisis done she has no intentions on reading, signing it, or knowing what it says.He then said she does not feel her medications are doing any good for her toher mood behaviors are not good. She was then directed back to her initialpresentation upon entering teaming which was bright and cheerful and thisirritated her. She was also told it was okay that if she did not wish to signor be aware of the contents in her treatment plan but that it was still goingto be developed and implemented as this will address her complaint of staffinconsistencies on how all staff react differently to her behaviors. Patientbecame argumentative, anxious and irritable and left the meeting. Shortly afterthe meeting she approached Gloira her practice coordinator asking to be put onthe Abilify injection because she does not feel the Latuda is working for her.ObjectiveVital SignsVital Signs-LastResult Date TimePulse Ox 99 01/16 1100B/P 116/79 01/16 1100Temp 97.5 01/16 1100Pulse 76 01/16 1100Resp 18 01/16 1100Current MedicationsLurasidone HCl (Latuda) 80 MG QHS POTopiramate (Topamax) 25 MG DAILY POLurasidone HCl (Latuda) 80 MG DAILY PONicotine (Nicorette) 2 MG Q2HPRN PRN POPropranolol HCl (Inderal) 10 MG BID POAcetaminophen (Tylenol) 650 MG Q4HPRN PRN POAcetaminophen (Tylenol) 650 MG Q4HPRN PRN POAl Hydrox/Mg Hydrox/Simethicone (Maalox) 15 ML QIDPRN PRN POHydroxyzine (Atarax) 50 MG Q4HPRN PRN POMagnesium Hydroxide (Mom) 10 ML QHSPRN PRN POTrazodone HCl (Desyrel) 50 MG QHSPRN PRN POTuberculin PPD (Mantoux) 5 UNIT ONCE PRN IDSertraline HCl (Zoloft) 100 MG DAILY POLoratadine (Claritin) 10 MG DAILY POExaminationMusculoskeletalMuscle Strength & Tone normalGait normalStation normalMental Status ExaminationSpeech pressured, loudThought Process superficially organizedThought Content normalAssociations circumstantialAbnormal or Psychotic Thoughts no impairmentPatient's Judgement limitedInsight limitedReality Testing intactDecision Making Capacity compromisedMental StatusOrientation time, place, personRecent & Remote Memory intactConcentration poorFund of Knowledge: awareness of current eventsMood irritable, anxiousAffect labileAdditional notesPlan: Continue with current treatment plan, continue with skills development,development of a behavioral plan, and coordination of staff and treatment teamto ensure and maintain safety. Await bed availability at [facility] as in accordancewith her AOT. Monitor for side-effects of medications and explore futher withpatient regarding her request of Abilify.ResultsResults Ordered/ReviewedLab Tests patient refused am lab work (pt continues to refuse labs)Assessment/PlanDiagnosis1. Suicide attemptStatus Acute2. Major depressive disorderStatus Chronic3. Bipolar affective disorderStatus Chronic4. Borderline personality disorderStatus Chronic5. Obesity, morbidStatus ChronicCoordination of care provided with nursing staff, treatment teamRisk/benefits discussed side effects, weight gain/lossJustification for continued stay danger to self/others, behavior intolerable,unable to care for self independently in unsupervised setting/environmentDATE SIGNED: 01/16/21 Electronically SignedTIME SIGNED: 1413 DYLAN CABRERA Name Value Range Interpretation Code Description Data Stephanie rce(s) Supporting Document(s) ID Date Data Source [id number] 01/16/2021 10:03:00 AM EDT [facility] Exam Number: [id number] Reported By: - JEREMIAH PEOPLES MD Signed By: JEREMIAH PEOPLES MD Name Value Range Interpretation Code Description Data Stephanie rce(s) Supporting Document(s) ID Date Data Source [id number] 01/15/2021 11:23:00 AM EDT [address] HEALTH PROGRESS NOTEPATIENT NAME: YARELI HATCH PHYSICIAN: BROOKLYN ONEILL MDAUTHOR: Lana Aquino. DATE: 01/03/21 MR#: [id number] NOTE DATE: 01/15/21 RM#: 3RDOVERFLEVALUATION TIME: 1136 is a 20-year-old white female.CC/Hx Present Illness"I overdosed"Events Since Last EntryYareli met with her treatment team today and as she walked in, before eveningclosing the door, she said what do you want now with a smirk on her face. Shesaid she refused to have her lab work this am stating I can refuse, I willrefuse and you can t make me ; this statement the team verbally agreed with.The rational for the lab work was explained to her and she said she understoodboth the risks and benefits of having the lab work done and again she wasencouraged to have her lab work done. She also said she did not take hermedications this am as of that time when asked but did say she was not sure ifshe was going to take them or not depends on how I feel at that moment becauseI don t think I need any medications. They are what make me unstable ; sincethis she has taken her medications as scheduled/prescribed including her newlyprescribed Topamax. She said she knows if she refuses the medications that willkeep her from being discharged however it was explained to her that her recentacts of aggression, impulsivity, and violence are the behaviors that are notconducive of discharge however she would not accept this as being the case.When asked about her episode of restraints last night why do you have to bringthat up? Every time I go into restraints or act out you have to bring it up?The rational for this was given to her however she again did not have a verbalresponse to this but rather a smirk and eye roll. She was asked about beingsuicidal and at that moment she began to giggle I have to take a moment beforeI respond . She said being suicidal will depend on how you treat me, what yousay to me and how I feel after I leave this meeting . She was informed that shehas control over her thoughts and her behaviors and how she responds to theseurges and thoughts is up to her and that if something is said to her that isupsetting that she needs to communicate this to us because if she does not thanhow would we know.. She was asked about the incident of wrapping a sheet aroundher neck last night I don t want to talk about it . It was explained to herthat her behaviors are what triggers the response she gets from other people.She was told it was our duty to look at her behaviors and to find a way to keepher safe and that by only allowing blankets to be used by her and not sheet,this may be more difficult for her to tie it around her neck. She expressedthis was an act of punishment and that no one else has taken the sheets awayfrom her and that we are just taking everything away as a means to punish her.She again was asked about thoughts of suicide and/or urges to harm herself butcecil did not provide a verbal response; sat in the chair with her arms foldedacross her chest with a smirk on her face. She denies having any medicalproblems at this time and also denied having any other physical complaint.ObjectiveVital SignsVital Signs-LastResult Date TimeB/P 139/87 01/15 0915Pulse Ox 97 01/14 1206Temp 97.6 01/14 1206Pulse 85 01/14 1206Resp 16 01/14 1206Current MedicationsLurasidone HCl (Latuda) 80 MG QHS POTopiramate (Topamax) 25 MG DAILY POLurasidone HCl (Latuda) 80 MG DAILY PONicotine (Nicorette) 2 MG Q2HPRN PRN POPropranolol HCl (Inderal) 10 MG BID POAcetaminophen (Tylenol) 650 MG Q4HPRN PRN POAcetaminophen (Tylenol) 650 MG Q4HPRN PRN POAl Hydrox/Mg Hydrox/Simethicone (Maalox) 15 ML QIDPRN PRN POHydroxyzine (Atarax) 50 MG Q4HPRN PRN POMagnesium Hydroxide (Mom) 10 ML QHSPRN PRN POTrazodone HCl (Desyrel) 50 MG QHSPRN PRN POTuberculin PPD (Mantoux) 5 UNIT ONCE PRN IDSertraline HCl (Zoloft) 100 MG DAILY POLoratadine (Claritin) 10 MG DAILY POExaminationMusculoskeletalMuscle Strength & Tone normalGait normalStation normalMental Status ExaminationSpeech hyperverbal, pressured, loudThought Process illogical, disorganizedThought Content normal (ideas of influence)Associations tangential, circumstantialAbnormal or Psychotic Thoughts suicidal urgesPatient's Judgement poorInsight poorReality Testing intactDecision Making Capacity compromisedMental StatusOrientation time, place, person, nameRecent & Remote Memory intactConcentration impairedFund of Knowledge: awareness of current eventsMood irritable, anxiousAffect inappropriateResultsResults Ordered/ReviewedLab Tests patient refused am lab workAssessment/PlanDiagnosis1. Suicide attemptStatus Acute2. Major depressive disorderStatus Chronic3. Bipolar affective disorderStatus Chronic4. Borderline personality disorderStatus Chronic5. Obesity, morbidStatus ChronicCoordination of care provided with nursing staffRisk/benefits discussed side effectsJustification for continued stay danger to self/others, behavior intolerableAdditional NotesPlan: continue with current treatment plan, medication management, attempts atskills training, and monitoring of side- effects. Continue to [facility] as per her AOTDATE SIGNED: 01/15/21 Electronically SignedTIME SIGNED: 1136 DYLAN CABRERA Name Value Range Interpretation Code Description Data Stephanie rce(s) Supporting Document(s) ID Date Data Source [id number] 01/14/2021 03:17:00 PM EDT [address] HEALTH PROGRESS NOTEPATIENT NAME: YARELI HATCH PHYSICIAN: BROOKLYN ONEILL MDAUTHOR: Lana Aquino. DATE: 01/03/21 MR#: [id number] NOTE DATE: 01/14/21 RM#: 320EVALUATION TIME: 1523 is a 20-year-old white female.CC/Hx Present Illness"I overdosed"Events Since Last EntryYareli met with team today as unkempt and malodorous. When this was broughtto her attention she became defensive and attempted to blame her peers andstaff for her inadequate hygiene they do not let me shower in the morning .She did not accept responsibility for her acting out behaviors this weekend,the need for multiple PRN s and being placed into restraints. She said it wasdue to her peers and due to staff being mean why she was placed in restraintsand given a chemical restraint. Her medications were reviewed and it was notedthat she was started on Geodon and Benadryl this weekend and that she has notbeen taking it. She said she does not like the way Benadryl makes her feel andthat in the past Geodon has had no effect on her and that she does not want totake it. She then asked what we can do to help her mood swings and so it wassuggested and she agreed to an increase in dose of her Latuda at [facility]. She alsocomplained of having a headache on and off for the last month and that she wascurrently experiencing one while we were talking. She denied these headachescausing her any other physical symptoms. During the meeting she wasargumentative, defensive and easily agitated. She did deny having any thoughtsof suicide and thoughts of wanting to harm others. She is sleeping and eatingwell.ObjectiveVital SignsVital Signs-LastResult Date TimePulse Ox 97 01/14 1206B/P 103/66 01/14 1206Temp 97.6 01/14 1206Pulse 85 01/14 1206Resp 16 01/14 1206Mental Status ExaminationSpeech hyperverbal, pressured, loudThought Process illogical, disorganizedThought Content abnormalAssociations circumstantialAbnormal or Psychotic Thoughts somaticPatient's Judgement poorInsight poorReality Testing compromisedDecision Making Capacity compromisedMental StatusOrientation time, place, person, nameRecent & Remote Memory intactConcentration poorFund of Knowledge: awareness of current eventsMood irritableAffect labileResultsResults Ordered/ReviewedLab Tests ordered, Hepatic profile, CMPAssessment/PlanDiagnosis1. Suicide attemptStatus Acute2. Major depressive disorderStatus Chronic3. Bipolar affective disorderStatus Chronic4. Borderline personality disorderStatus Chronic5. Obesity, morbidStatus ChronicCoordination of care provided with nursing staffRisk/benefits discussed side effectsJustification for continued stay danger to self/others, unable to care for selfindependently in the communityAdditional NotesPlan: continue with current treatment plan; increase Latuda to 80mg at nightand start topamax 25mg daily as an attempt to lessen frequency of headaches.Working housing with accordance to her AOT and with safe discharge planningDATE SIGNED: 01/14/21 Electronically SignedTIME SIGNED: 1523 DYLAN CABRERA Name Value Range Interpretation Code Description Data Stephanie rce(s) Supporting Document(s) ID Date Data Source [id number] 01/11/2021 10:27:00 AM EDT [place] [address] [place] [address]LQMBPG HEALTH PROGRESS NOTEPATIENT NAME: YARELI HATCH PHYSICIAN: BROOKLYN ONEILL MDAUTHOR: Alfred SMITH,[facility]. DATE: 01/03/21 MR#: [id number] NOTE DATE: 01/11/21 RM#: 320EVALUATION TIME: 1038 is a 20-year-old white female.CC/Hx Present Illness"I overdosed"Events Since Last EntryPatient asked to meet with Dr. Mclean. Patient stated that she was havingsuicidal ideations this morning, after having an altercation with anotherpatient on the unit. Patient states that herself and other patient argued, andpatient was told to go kill herself, which made her SI worse. Patient givenZydis 10mg to treat agitation. Patient states her sleep and appetite arenormal.ObjectiveVital SignsVital Signs- LastResult Date TimeB/P 122/90 01/11 1008Temp 98.1 01/11 0729Pulse Ox 96 01/09 1239Pulse 65 01/09 1239Resp 16 01/09 1239Mental Status ExaminationSpeech pressuredThought Process illogicalThought Content abnormalAssociations tangentialAbnormal or Psychotic Thoughts suicidalPatient's Judgement poorInsight poorReality Testing compromisedDecision Making Capacity compromisedMental StatusOrientation time, place, personRecent & Remote Memory intactConcentration impairedFund of Knowledge: awareness of current eventsMood depressed, anxiousAffect labileAssessment/PlanDiagnosis1. Suicide attemptStatus Acute2. Major depressive disorderStatus Chronic3. Bipolar affective disorderStatus ChronicA&PPlan: Patient is not showing any significant improvement. She becomesagitated and angry easily, and has impulse control problems. She has someparanoid ideations, she states she is having suicidal ideations, but nohomicidal ideations. She will continue to recieve individual counseling, andgroup therapy. She will participate in unit acitivites when offered. Nochanges in medications at this time. Staff will closely monitor patientsprogress.4. Borderline personality disorderStatus Chronic5. Obesity, morbidStatus ChronicCoordination of care provided with nursing staffRisk/benefits discussed side effectsJustification for continued stay danger to self/othersDATE SIGNED: 01/11/21 Electronically SignedTIME SIGNED: 1038 AMADA MCLEAN MD Name Value Range Interpretation Code Description Data Stephanie rce(s) Supporting Document(s) ID Date Data Source [id number] 01/10/2021 11:17:00 AM EDT [address] HEALTH PROGRESS NOTEPATIENT NAME: DENISSE HATCHYLA [facility] PHYSICIAN: BROOKLYN ONEILL MDAUTHOR: Lana Aquino. DATE: 01/03/21 MR#: [id number] NOTE DATE: 01/10/21 RM#: 320EVALUATION TIME: 1121 is a 20-year-old white female.CC/Hx Present Illness"I overdosed"Events Since Last EntryYareli met with her treatment team today and we discussed the events of lastevening. She said I don t know when asked what happened and why she put apillowcase around her neck. She began to be tearful and would not provide aresponse when asked if it was because we spoke about discharge and the lifeskills she needs to acquire in order to maintain community living. She did notengage much in teaming today as the questions were asked about her behaviors oflast night nor did she accept responsibility for them. She did state she wasthinking about her family just prior to engaging in this act and eluded this tobeing the trigger. She was asked if she put the pillowcase around her neck inan attempt to end her life but she did not response and kept her eyes downwhile she fidgeted with her fingers. She presented malodorous and personalhygiene was discussed with her which evoked more of response and where sheengaged in eye contact. She admitted to not showering this am and said sheplanned to this evening. She was asked why she did not come to her treatmentcoordinators door this am like she usually does each morning and at that timeshe looked at the floor and gave a shrug of the shoulders for a response. Shedid not appear to be motivated for treatment this am as she did not activelyengage. She did admit to waking up a lot last night but would not elaborate asto why when asked. She did take her am medications and denies experiencing anyside effects from the increase in dose of her Latuda.ObjectiveVi florina SignsVital Signs-LastResult Date TimeB/P 128/76 01/10 0844Temp 97.3 01/10 0744Pulse Ox 96 01/09 1239Pulse 65 01/09 1239Resp 16 01/09 1239Mental Status ExaminationSpeech slow, soft spokenThought Process blockingThought Content normalAssociations looseAbnormal or Psychotic Thoughts no impairmentPatient's Judgement poorInsight poorReality Testing intactDecision Making Capacity compromisedMental StatusOrientation time, place, personRecent & Remote Memory intactConcentration poorFund of Knowledge: awareness of current eventsMood depressedAffect flatAdditional notesPlan:Continue with use of psychotropic medications, AOT and housing placementAssessment/PlanDiagnosis1. Suicide attemptStatus Acute2. Major depressive disorderStatus Chronic3. Bipolar affective disorderStatus Chronic4. Borderline personality disorderStatus Chronic5. Obesity, morbidStatus ChronicCoordination of care provided with nursing staffRisk/benefits discussed side effectsDATE SIGNED: 01/10/21 Electronically SignedTIME SIGNED: 1121 DYLAN CABRERA Name Value Range Interpretation Code Description Data Stephanie rce(s) Supporting Document(s) ID Date Data Source [id number] 01/09/2021 03:23:00 PM EDT [place] [id number] HEALTH PROGRESS NOTEPATIENT NAME: YARELI HATCH PHYSICIAN: BROOKLYN ONEILL MDAUTHOR: Gema WHITE,DylanADM. DATE: 01/03/21 MR#: [id number] NOTE DATE: 01/09/21 RM#: 320EVALUATION TIME: 1527 is a 20-year-old white female.CC/Hx Present Illness"I overdosed"Events Since Last EntryMickayla met with treatment team today and she presented overly bright. Shetalked about her bath last night that she took with staff in the [facility]pool[facility]. She expressed excitement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 negative. Judgment and insight remains impaired. She is unwilling toengage in any form of therapy today.Portions of this section were scribed by Shell Ariza on 12/05/20 at 1638Assessment/PlanDiagnosis1. Suicide attemptStatus Acute2. Obesity, morbid3. Bipolar affective disorder4. Borderline personality disorderCoordination of care provided with nursing staff, treatment teamRisk/benefits discussed side effectsAdditional NotesPlan:Patient needs further hospitalization. With her negative mood as well as herhostility she certainly is not save for discharge. Her meeting with [facility] hasbeen postponed until next week. At this point we do not have any viabledischarge options. She has no where to go. Pretty much all the supportivehousing options have told us no to her placement.Portions of this section were scribed by Shell Ariza on 12/05/20 at 1638DATE SIGNED: 12/05/20 Electronically SignedTIME SIGNED: 1645 BROOKLYN ONEILL MD Name Value Range Interpretation Code Description Data Stephanie rce(s) Supporting Document(s) ID Date Data Source [id number] 12/04/2020 03:07:00 PM EDT [address] HEALTH PROGRESS NOTEPATIENT NAME: YARELI HATCH PHYSICIAN: BROOKLYN ONEILL MDAUTHOR: Mai SMITH,P.ADM. DATE: 10/31/20 MR#: [id number] NOTE DATE: 12/04/20 RM#: 310EVALUATION TIME: 1508 is 20-year-old female, currently single, past psych historyof bipolar disorder, poor impulse control and borderline personality disorderChief complaint concern about her ability to maintain safety and possiblesuicidal thoughtsEvents Since Last EntryYareli was seen today along with the practice coordinator, Gloria, and a PAstudent from [facility]. She refused to see me today. I was informedthat she was lying on the floor and refused to get up and come to the office.Portions of this section were scribed by Shell Ariza on 12/04/20 at 1528ObjectiveVital SignsVital Signs-LastResult Date TimePulse Ox 100 12/04 1124B/P 122/84 12/04 1124Temp 97.6 12/04 1124Pulse 89 12/04 1124Resp 16 12/04 1124Current MedicationsLoratadine (Claritin) 10 MG DAILY PONicotine (Nicorette) 2 MG Q2HPRN PRN POAcetaminophen (Tylenol) 650 MG Q6HPRN PRN POAcetaminophen (Tylenol) 650 MG Q6HPRN PRN POAl Hydrox/Mg Hydrox/Simethicone (Maalox) 30 ML QIDPRN PRN POHydroxyzine (Atarax) 50 MG Q4HPRN PRN POMagnesium Hydroxide (Mom) 10 ML QHSPRN PRN POTrazodone HCl (Desyrel) 50 MG QHSPRN PRN POOlanzapine (Zydis (Zyprexa)) 15 MG DAILY SLPropranolol HCl (Inderal) 10 MG BID POArtificial Tears (Artificial Tears) INSTILL 1 DROP IN BOTH EYESTIDPRN PRN BOTHEYESChlorpromazine HCl (Chlorpromazine HCl) 300 MG 1300,2000 POBenztropine Mesylate (Cogentin) 1 MG DAILY POBenzocaine/Pectin/Carboxymethylcell (Cepastat) 1 JHOAN Q2HPRN PRN POExaminationMusculoskeletalGait normalAdditional notesMental status:I could not do a complete mental status as she refused to come to the office. Iwas not able to complete the mental status evaluation.Portions of this section were scribed by Shell Ariza on 12/04/20 at 1528Assessment/PlanDiagnosis1. Suicide attemptStatus Acute2. Obesity, morbid3. Bipolar affective disorder4. Borderline personality disorderCoordination of care provided with nursing staff, treatment teamRisk/benefits discussed side effectsAdditional NotesPlan:We are still planning on meeting with [facility] regarding her.Portions of this section were scribed by hSell Ariza on 12/04/20 at 1528DATE SIGNED: 12/04/20 Electronically SignedTIME SIGNED: 1531 BROOKLYN ONEILL MD Name Value Range Interpretation Code Description Data Stephanie rce(s) Supporting Document(s) ID Date Data Source [id number] 12/03/2020 01:41:00 PM EDT [place] [id number] HEALTH PROGRESS NOTEPATIENT NAME: YARELI HATCH PHYSICIAN: BROOKLYN ONEILL MDAUTHOR: Mai SMITH,P.ADM. DATE: 10/31/20 MR#: [id number] NOTE DATE: 12/03/20 RM#: [id number] TIME: 1346 is 20-year-old female, currently single, past psych historyof bipolar disorder, poor impulse control and borderline personality disorderChief complaint concern about her ability to maintain safety and possiblesuicidal thoughtsEvents Since Last EntryYareli was seen today along with the practice coordinator, Gloria. She isvery angry and agitated. I was reported by the staff members that she wasasking for more chicken nuggets in lunch. When I asked the patient about it,she got angry and stated that she does not want to talk about it. I advised thepatient that Zyprexa has a side effect of weight gain and that could be thereason that she is feeling more hungry. Therefore, we can switch her to Invega.Patient continued saying "I have told you I do not want to talk about it, andyou are still bringing it up". Patient refuses to be switched on Invega. Shestated she was stress eating. Patient was not cooperative during the session.Portions of this section were scribed by Shell Ariza on 12/03/20 at 1449ObjectiveVital SignsVital Signs-LastResult Date TimePulse Ox 98 12/03 1106B/P 126/85 12/03 1106Temp 97.4 12/03 1106Pulse 85 12/03 1106Resp 16 12/03 1106Current MedicationsLoratadine (Claritin) 10 MG DAILY PONicotine (Nicorette) 2 MG Q2HPRN PRN POAcetaminophen (Tylenol) 650 MG Q6HPRN PRN POAcetaminophen (Tylenol) 650 MG Q6HPRN PRN POAl Hydrox/Mg Hydrox/Simethicone (Maalox) 30 ML QIDPRN PRN POHydroxyzine (Atarax) 50 MG Q4HPRN PRN POMagnesium Hydroxide (Mom) 10 ML QHSPRN PRN POTrazodone HCl (Desyrel) 50 MG QHSPRN PRN POOlanzapine (Zydis (Zyprexa)) 15 MG DAILY SLPropranolol HCl (Inderal) 10 MG BID POArtificial Tears (Artificial Tears) INSTILL 1 DROP IN BOTH EYESTIDPRN PRN BOTHEYESChlorpromazine HCl (Chlorpromazine HCl) 300 MG 1300,2000 POBenztropine Mesylate (Cogentin) 1 MG DAILY POBenzocaine/Pectin/Carboxymethylcell (Cepastat) 1 JHOAN Q2HPRN PRN POExami nationMusculoskeletalGait normalAdditional notesMental status:Yareli is not cooperative. She appeared angry. She is irritable. She did notwant to talk about anything particularly about her eating or anything relatedto her medications. Judgment and insight is impaired. Continues to haveproblems with impulsiveness. She remains hostile, angry. She is not at allcooperative today to proceed with the rest of the mental status.Portions of this section were scribed by Shell Ariza on 12/03/20 at 1451Assessment/PlanDiagnosis1. Suicide attemptStatus Acute2. Obesity, morbid3. Bipolar affective disorder4. Borderline personality disorderCoordination of care provided with nursing staff, treatment teamRisk/benefits discussed side effectsAdditional NotesPlan:I wanted to talk to her about switching her from Zyprexa to Invega Sustena,specifically because she has gained a lot of weight on Zyprexa. I have beengetting reports that she has been eating a lot, but she was not willing toengage in the conversation. So, I am unable to switch her medication.Portions of this section were scribed by Shell Ariza on 12/03/20 at 1451DATE SIGNED: 12/03/20 Electronically SignedTIME SIGNED: 1458 BROOKLYN ONEILL MD Name Value Range Interpretation Code Description Data Stephanie rce(s) Supporting Document(s) ID Date Data Source [id number] 12/03/2020 02:56:[address] [facility] [place], [place] [address] [facility] PROGRESS NOTEPATIENT NAME: YARELI HATCH PHYSICIAN: BROOKLYN ONEILL MDAUTHOR: Mai SMITH,P.ADM. DATE: 10/31/20 MR#: [id number] NOTE DATE: 12/02/20 RM#: 310EVALUATION TIME: 1458 is 20-year-old female, currently single, past psych historyof bipolar disorder, poor impulse control and borderline personality disorderChief complaint concern about her ability to maintain safety and possiblesuicidal thoughtsEvents Since Last EntryYareli Was seen today along with the practice coordinator, Gloria, and a PAstudent from [facility]. She was in better mood. She was spontaneous.She was not expressing any hostility or anger. We talked about differentmedication option, reviewed her medications and side effects, benefits v/srisks.Portions of this section were scribed by Shell Ariza on 12/03/20 at 1456ObjectiveVital SignsVital Signs-LastResult Date TimePulse Ox 98 12/03 1106B/P 126/85 12/03 1106Temp 97.4 12/03 1106Pulse 85 12/03 1106Resp 16 12/03 1106Current MedicationsLoratadine (Claritin) 10 MG DAILY PONicotine (Nicorette) 2 MG Q2HPRN PRN POAcetaminophen (Tylenol) 650 MG Q6HPRN PRN POAcetaminophen (Tylenol) 650 MG Q6HPRN PRN POAl Hydrox/Mg Hydrox/Simethicone (Maalox) 30 ML QIDPRN PRN POHydroxyzine (Atarax) 50 MG Q4HPRN PRN POMagnesium Hydroxide (Mom) 10 ML QHSPRN PRN POTrazodone HCl (Desyrel) 50 MG QHSPRN PRN POOlanzapine (Zydis (Zyprexa)) 15 MG DAILY SLPropranolol HCl (Inderal) 10 MG BID POArtificial Tears (Artificial Tears) INSTILL 1 DROP IN BOTH EYESTIDPRN PRN BOTHEYESChlorpromazine HCl (Chlorpromazine HCl) 300 MG 1300,2000 POBenztropine Mesylate (Cogentin) 1 MG DAILY POBenzocaine/Pectin/Carboxymethylcell (Cepastat) 1 JHOAN Q2HPRN PRN POExaminationMusculoskeletalGait normalAdditional notesMental status:Yareli is more spontaneous, pleasant, and cooperative. The patient denies anySI/HI ideation. Judgment and insight is fair. Denied hallucinations ordelusional thinking.Portions of this section were scribed by Shell Ariza on 12/03/20 at 1456Assessment/PlanDiagnosis1. Suicide attemptStatus Acute2. Obesity, morbid3. Bipolar affective disorder4. Borderline personality disorderCoordination of care provided with nursing staff, treatment teamRisk/benefits discussed side effectsAdditional NotesPlan:We have a meeting schedule for her to meet with [facility] as well as Lorraine Hoganregarding her as the placement continues to be a problem.Portions of this section were scribed by Shell Ariza on 12/03/20 at 1456DATE SIGNED: 12/04/20 Electronically SignedTIME SIGNED: 1533 BROOKLYN ONEILL MD Name Value Range Interpretation Code Description Data Stephanie rce(s) Supporting Document(s) ID Date Data Source [id number] 11/29/2020 04:02:00 PM EDT [place] [id number] HEALTH PROGRESS NOTEPATIENT NAME: YARELI HATCH CATTENGIOVANNY PHYSICIAN: BROOKLYN ONEILL MDAUTHOR: Mai SMITH,P.ADM. DATE: 10/31/20 MR#: [id number] NOTE DATE: 11/29/20 RM#: 310EVALUATION TIME: 1602 is 20-year-old female, currently single, past psych historyof bipolar disorder, poor impulse control and borderline personality disorderChief complaint concern about her ability to maintain safety and possiblesuicidal thoughtsEvents Since Last EntryYareli was seen today along with the practice coordinator, Gloria. She didnot allow the students to be present during the session. She seems depressed.She handed a suicide note to Gloria stating that "she is going to end it all".When asked about the note patient stated she is feeling that she has beendealing with the same cycle again and again and it is pointless so, it isbetter to end it all. As precaution treatment team told her that she needs tosit in front of the nurse station and will not be allowed to attend activitiesfor the time being. Patient got angry and refused to agree on the plan. Shestates, "If you are going to tell me to sit in front of the nurse station forwhole weekend and will not allow me to attend activities I will be pissed".Patient also states, "if you are going to make me sit there, I will flip outthe chairs". She states she does not feel that she can share her feelings.Patient continues to be irritated. She continues to use foul language duringthe session to express her irritation and anger. Patient did not show anyinsight. She refuses to agree to any treatment plan. Medications were discussedduring the session. She is not on any anti- depressants. When patient was askedwhether she was on any antidepressants in the past she stated, "I do not careabout on which medications I was on or I am currently on". When asked whethershe is willing to be started on any antidepressant she states, "my opinion doesnot matter, you are always going to shut down". She then refuses to add anymedication in her treatment regimen. Patient states the medications does nothelp her. Patient continues to be argumentative during the session. Patientrefuses to sit in front of the nurse station for whole weekend. She states "youcannot stop me for anything I want to do. I am not going to listen to anybody".She states, "I am suicidal but can contract for my safety". Patient wascounseled that she needs to give this in writing and need to show in heractions. Patient was agitated and said, "this place is ridiculous", and leftthe room followed by slamming the door.Portions of this section were scribed by Shell Ariza on 11/29/20 at 1602ObjectiveExaminationMusculoskeletalGait normalAdditional notesMental status:Yareli was agitated and became confrontational. She was focused on escalatingthe situation so that I will end up on one to one. I did not put her on one toone as I felt it is not necessary. She does not show any good judgment orinsight. She contracts for safety for now. Overall, she is not making progress.She continues to remain to be a danger to herself. Her mood is irritable anddepressed, and affect is flat.Portions of this section were scribed by Shell Ariza on 11/29/20 at 1606Assessment/PlanDiagnosis1. Suicide attemptStatus Acute2. Obesity, morbid3. Bipolar affective disorder4. Borderline personality disorderCoordination of care provided with nursing staff, treatment teamRisk/benefits discussed side effectsAdditional NotesPlan:Will keep her on current medications. She did not want to be onantidepressants. I did not put her on one-to-one precaution as that tends to becounter productive for her as she tends to enjoy the attention of one to one.So, I have made some arrangements like she will spend some time in the hospitaland then some time at home. We are still experiencing placement problem for herbecause of her complicated history.Portions of this section were scribed by Shell Ariza on 11/29/20 at 1606DATE SIGNED: 11/29/20 Electronically SignedTIME SIGNED: 1611 BROOKLYN ONEILL MD Name Value Range Interpretation Code Description Data Stephanie rce(s) Supporting Document(s) ID Date Data Source [id number] 11/28/2020 04:08:00 PM EDT [facility] [id number] NOTEPATIENT NAME: YARELI HATCH CATTENDING PHYSICIAN: BROOKLYN ONEILL MDAUTHOR: Mai SMITH,P.ADM. DATE: 10/31/20 MR#: [id number] NOTE DATE: 11/28/20 RM#: 310EVALUATION TIME: 1624 is 20-year-old female, currently single, past psych historyof bipolar disorder, poor impulse control and borderline personality disorderChief complaint concern about her ability to maintain safety and possiblesuicidal thoughtsEvents Since Last EntryYareli was seen today along with the practice coordinator, Gloria, she didnot allow the student to present today. I have addressed her with several thing; 1st one was about recommendations of managed care reviewers. They made threerecommendation to start her on either Latuda or Depakote or Lamictal. Iexplained to her about each one of them individually, reasons for themedication; what are the possible benefits and risk of medications,particularly about Depakote and Lamictal since both can cause adverse sideeffects to a young woman of a childbearing age. Yareli became verballyabusive and started telling me that I am not a medical doctor and I do not haveto talk to her about these things. I explained to her that any psychiatrist hasto be a medical doctor 1st before they became a psychiatrist and it is my legaland ethical duty to inform her of all the available options for mood stabilizeras well as benefits and risks of those medi cations, specifically as it appliedto young women. I have also informed her that Ji Ng declined her forfamily care. As Ji felt she would not be a good fit to family care. Sheproceeded to tell us that she knew what is going to happen and that we wastedher time. She claims that we are not moving fast enough to find a right placefor her. Gloria also told her about the number of referrals she has made.Additionally, patient told me she did not want to be on Latuda because she hasbeen on it before and that did not help her. Also, she said the same thingabout Depakote. She also refused to consider Lamictal. So, I am not able tostart her on any of the 3 medications mentioned above.Portions of this section were scribed by Shell Ariza on 11/28/20 at 1622ObjectiveVital SignsVital Signs-LastResult Date TimePulse Ox 97 11/28 1037B/P 118/78 11/28 1037Temp 95.6 11/28 1037Pulse 109 11/28 1037Resp 16 11/28 1037Current MedicationsOlanzapine (Zydis (Zyprexa)) 15 MG DAILY SLPropranolol HCl (Inderal) 10 MG BID POArtificial Tears (Artificial Tears) INSTILL 1 DROP IN BOTH EYESTIDPRN PRN BOTHEYESChlorpromazine HCl (Chlorpromazine HCl) 300 MG 1300,2000 POBenztropine Mesylate (Cogentin) 1 MG DAILY POBenzocaine/Pectin/Carboxymethylcell (Cepastat) 1 JHOAN Q2HPRN PRN PONicotine (Nicorette) 2 MG Q2HPRN PRN POLoratadine (Claritin) 10 MG DAILY POAcetaminophen (Tylenol) 650 MG Q4HPRN PRN POAcetaminophen (Tylenol) 650 MG Q4HPRN PRN POAl Hydrox/Mg Hydrox/Simethicone (Maalox) 15 ML QIDPRN PRN POHydroxyzine (Atarax) 50 MG Q4HPRN PRN POMagnesium Hydroxide (Mom) 10 ML QHSPRN PRN POTrazodone HCl (Desyrel) 50 MG QHSPRN PRN POExaminationMusculoskeletalGait normalAdditional notesMicadrienne continues to be hostile. She takes on very self-defeating attitude.She also unconsciously wants us to feel the same disappointment she is feeling.No change in her depression of hostility, or verbal aggression, or verbalabusiveness. Given her mental status I do not think she is considered safe,potential for suicidal attempt present.Portions of this section were scribed by Shell Ariza on 11/28/20 at 1622Assessment/PlanDiagnosis1. Suicide attemptStatus Acute2. Obesity, morbid3. Bipolar affective disorder4. Borderline personality disorderCoordination of care provided with nursing staff, treatment teamRisk/benefits discussed side effectsAdditional NotesPlan:We are continuing to pursue all the options such as sending out more referrals.Will also ask Regine and Lorraine to arrange a meeting with [facility] to discuss aboutany other option available for her. patient has refused for any medicationchanges.Portions of this section were scribed by Shell Ariza on 11/28/20 at 1622DATE SIGNED: 11/28/20 Electronically SignedTIME SIGNED: 3356 BROOKLYN ONEILL MD Name Value Range Interpretation Code Description Data Stephanie rce(s) Supporting Document(s) ID Date Data Source [id number] 11/27/2020 03:38:[address] [facility] [place], [place] [address]WPDBUW HEALTH PROGRESS NOTEPATIENT NAME: YARELI HATCH CATTENDING PHYSICIAN: BROOKLYN ONEILL MDAUTHOR: Mai SMITH,P.ADM. DATE: 10/31/20 MR#: [id number] NOTE DATE: 11/27/20 RM#: 310EVALUATION TIME: 1539 is 20-year-old female, currently single, past psych historyof bipolar disorder, poor impulse control and borderline personality disorderChief complaint concern about her ability to maintain safety and possiblesuicidal thoughtsEvents Since Last EntryYareli was seen today along with the practice coordinator, Gloria, and a PAstudent from [facility]. She is doing well. I was informed by thestaff members that she is not taking shower every day as a result having bodyodor. Patient stated she does not have any problem with routine, and she statedpeople are "asshole" and that is why they are complaining about such stuff. Perpatient, her screening for family care went well, but I was informed that shedid her best in her behavior to get rejected. The patient gets agitated whenthe discussion about any discharge plan comes up. She is still the same. Therehas been no improvement in her insight or self-esteem. She still feels helplessand states, "I do not care". The patient continues to be irritated and usesfoul language during the session. Yareli go on misinterpreting whatever I sayto her and sabotage every treatment plan. Patient made a statement "I do notlisten to my mother or father why should I listen to any stupid psychiatrist".There is no improvement.Portions of this section were scribed by Shell Ariza on 11/27/20 at 1538ObjectiveVital SignsVital Signs-LastResult Date TimePulse Ox 99 11/27 1134B/P 121/81 11/27 1134Temp 97.8 11/27 1134Pulse 98 11/27 1134Resp 15 11/27 1134Current MedicationsOlanzapine (Zydis (Zyprexa)) 15 MG DAILY SLPropranolol HCl (Inderal) 10 MG BID POArtificial Tears (Artificial Tears) INSTILL 1 DROP IN BOTH EYESTIDPRN PRN BOTHEYESChlorpromazine HCl (Chlorpromazine HCl) 300 MG 1300,2000 POBenztropine Mesylate (Cogentin) 1 MG DAILY POBenzocaine/Pectin/Carboxymethylcell (Cepastat) 1 JHOAN Q2HPRN PRN PONicotine (Nicorette) 2 MG Q2HPRN PRN POLoratadine (Claritin) 10 MG DAILY POAcetaminophen (Tylenol) 650 MG Q4HPRN PRN POAcetaminophen (Tylenol) 650 MG Q4HPRN PRN POAl Hydrox/Mg Hydrox/Simethicone (Maalox) 15 ML QIDPRN PRN POHydroxyzine (Atarax) 50 MG Q4HPRN PRN POMagnesium Hydroxide (Mom) 10 ML QHSPRN PRN POTrazodone HCl (Desyrel) 50 MG QHSPRN PRN POExaminationMusculoskeletalGait normalAdditional notesMental status:Yareli gets agitated easily. She continues to sabotage any discharge effortsdue to lack of judgment and insight. She appears depressed. Suicidal ideationscannot be ruled out. No evidence of hallucinations or delusions.Portions of this section were scribed by Shell Ariza on 11/27/20 at 1648Assessment/PlanDiagnosis1. Suicide attemptStatus Acute2. Obesity, morbid3. Bipolar affective disorder4. Borderline personality disorderCoordination of care provided with nursing staff, treatment teamRisk/benefits discussed side effectsAdditional NotesPlan:She is not making progress. She has been referred to every single institutionfor supportive housing in 5 or 6 counites nearby. Unfortunately, they all haveexperience with her. It is unlikely they will accept her. Patient insists thatI need to refer her to [facility]. But my concern is such things do not work becauseshe ends up coming back here day or 2 later. Will continue to work with OMSuerding her and look for more resources.Portions of t his section were scribed by Shell Ariza on 11/27/20 at 1648DATE SIGNED: 11/27/20 Electronically SignedTIME SIGNED: 1650 BROOKLYN ONEILL MD Name Value Range Interpretation Code Description Data Stephanie rce(s) Supporting Document(s) ID Date Data Source [id number] 11/26/2020 02:11:00 PM EDT [address] [address]FUBTEB HEALTH PROGRESS NOTEPATIENT NAME: YARELI HATCH PHYSICIAN: BROOKLYN ONEILL MDAUTHOR: Mai SMITH,P.ADM. DATE: 10/31/20 MR#: [id number] NOTE DATE: 11/26/20 RM#: 310EVALUATION TIME: 1411 is 20-year-old female, currently single, past psych historyof bipolar disorder, poor impulse control and borderline personality disorderChief complaint concern about her ability to maintain safety and possiblesuicidal thoughtsEvents Since Last EntryYareli was seen today along with the practice coordinator, Gloria, and a PAstudent from [facility]. She was irritated and angry today. She statedthat she is irritated because the nurses do not know how to give medications,and no one is giving answers to her questions which she has been asking for amonth. The patient was argumentative and was expressing her anger for beinghospitalized for so long. She stated, "I have been asking for the discharge fora month now, but you guys are too lazy to do the paperwork". The patient showedher irritation during the whole session. She used foul languages and statedthat we are "monsters". She also made a statement, "I came here with lesssuicidal ideations, but as long as I stay here, I am becoming more suicidal,and I am forced to live". The patient does not show any improvement. She doesnot show any self- esteem. She continues to state that it is pointless to carefor her because she does not care about anything and we are just wasting hertime. She was counselled that she has a difficulty looking at herself and shehas a habit of sabotaging any improvement or a treatment plan. The patient getagitated and stated, "you can assume what you want to, but you are wrong, asyou do not know anything about me". When patient was asked to talk aboutherself and her life, she refused to answer. Patient was recommended anincrease in her medications. She refused and stated that we just want toincrease the dose of her medications so that we do not have to listen to her.She states she does not need any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 (Chlorpromazine HCl) 300 MG 1300,2000 POBenztropine Mesylate (Cogentin) 1 MG DAILY POBenzocaine/Pectin/Carboxymethylcell (Cepastat) 1 JHOAN Q2HPRN PRN PONicotine (Nicorette) 2 MG Q2HPRN PRN POLoratadine (Claritin) 10 MG DAILY POAcetaminophen (Tylenol) 650 MG Q4HPRN PRN POAcetaminophen (Tylenol) 650 MG Q4HPRN PRN POAl Hydrox/Mg Hydrox/Simethicone (Maalox) 15 ML QIDPRN PRN POHydroxyzine (Atarax) 50 MG Q4HPRN PRN POMagnesium Hydroxide (Mom) 10 ML QHSPRN PRN POTrazodone HCl (Desyrel) 50 MG QHSPRN PRN POExaminationMusculoskeletalGait normalAdditional notesMental status:She was seen today. She denied suicidal ideations, but unfortunately, hermental status is so unpredictable that it can change from moment to moment. Inthe morning she stated she is not suicidal, but then when she gets upset, sheput in a court hearing to be discharge because she got upset about something.Portions of this section were scribed by Shell Ariza on 11/18/20 at 1626Assessment/PlanDiagnosis1. Suicide attemptStatus Acute2. Obesity, morbid3. Bipolar affective disorder4. Borderline personality disorderAdditional NotesPlan:I am not in an agreement with discharge. First reason for that is she has noplace to go. She has been declined by every agency [facility] with opening to[facility]. I am in the process of working with the AOT coordinator to arrange forgetting the AOT done for her. We really do not have anywhere to send here.Given the fact she was on restraints over the weekend and is on aor-cq-juwmaajocxudtu because she put a pillow over her neck to strangle herself. I donot recommend discharge for her. I will explain to her my reasons for notdischarging her. We do not have a safe discharge plan for her. Neither does shehas place to live. Her Zydus has been increased to 10 mg daily.Portions of this section were scribed by Shell Ariza on 11/18/20 at 1626DATE SIGNED: 11/18/20 Electronically SignedTIME SIGNED: 173 BROOKLYN ONEILL MD Name Value Range Interpretation Code Description Data Stephanie rce(s) Supporting Document(s) ID Date Data Source [id number] 11/17/2020 11:21:00 PM EDT [facility] [address]IEKOETAK NOTE FOLLOW UPPATIENT NAME: YARELI HATCH CATSALVADOR PHYSICIAN: BROOKLYN ONEILL MDAUTHOR: Dori SMITH,[facility] DATE: 10/31/20 MR#: [id number] NOTE DATE: 11/17/20 RM#: 310EVALUATION TIME: 2324 : 00Progress Note Follow UpSummaryI was called to evaluate patient as patient while sleeping put her sheetsaround her neck. I came to evaluate patient, patient refusing to be examinedby me. She is also refusing to get vitals taken. Patient was sleepingcomfortably in bed. I urged her to let me examine her but upon several trialspatient still refused. Mental health staff already completed an incidentreport. Patient has a one-to-one sitter with her at the moment for continualobservation.DATE SIGNED: 11/17/20 Electronically SignedTIME SIGNED: 2323 NEIL YUSUF MD Name Value Range Interpretation Code Description Data Stephanie rce(s) Supporting Document(s) ID Date Data Source [id number] 11/15/2020 02:15:00 PM EDT [place] [id number] HEALTH PROGRESS NOTEPATIENT NAME: DAMARISYARELI CAPELLAN PHYSICIAN: BROOKLYN OENILL, MDAUTHOR: Mai SMITH,P.ADM. DATE: 10/31/20 MR#: [id number] NOTE DATE: 11/15/20 RM#: 310EVALUATION TIME: 1416 is 20-year-old female, currently single, past psych historyof bipolar disorder, poor impulse control and borderline personality disorderChief complaint concern about her ability to maintain safety and possiblesuicidal thoughtsEvents Since Last EntryYareli was seen today along with the practice coordinator, [facility]. She is in a better mood today. She was smiling. Shebrought a notebook with her. She wanted me and Cata to read the contents. Shesaid she wrote about her feelings; how staff and other patients are reacting toher "coming out". What she meant was in 2019 she expressed her desire to be atransgender meaning she wanted to be a male. She also talked about herbiological mother disowning her because she told her she wants to be a male .She felt very rejected by the mother, but not by others.Portions of this section were scribed by Shell Ariza on 11/15/20 at 1415ObjectiveVital SignsVital Signs-LastResult Date TimePulse Ox 98 11/15 1114B/P 119/81 11/15 1114Temp 97.8 11/15 1114Pulse 89 11/15 1114Resp 18 11/15 1114Current MedicationsPropranolol HCl (Inderal) 10 MG 2000 POChlorpromazine HCl (Chlorpromazine HCl) 300 MG 1300,2000 POOlanzapine (Zydis (Zyprexa)) 5 MG DAILY SLBenztropine Mesylate (Cogentin) 1 MG DAILY POBenzocaine/Pectin/Carboxymethylcell (Cepastat) 1 JHOAN Q2HPRN PRN PONicotine (Nicorette) 2 MG Q2HPRN PRN POLoratadine (Claritin) 10 MG DAILY POAcetaminophen (Tylenol) 650 MG Q4HPRN PRN POAcetaminophen (Tylenol) 650 MG Q4HPRN PRN POAl Hydrox/Mg Hydrox/Simethicone (Maalox) 15 ML QIDPRN PRN POHydroxyzine (Atarax) 50 MG Q4HPRN PRN POMagnesium Hydroxide (Mom) 10 ML QHSPRN PRN POTrazodone HCl (Desyrel) 50 MG QHSPRN PRN POExaminationMusculoskeletalGait normalAdditional notesMental status:Yareli is in a better mood today, not showing any agitation, hostility, oranimosity. Judgment is still poor, but the insight is fair. She also statedlast time she put a pillow cover around her neck.Portions of this section were scribed by Shell Ariza on 11/15/20 at 1415Assessment/PlanDiagnosis1. Suicide attemptStatus Acute2. Obesity, morbid3. Bipolar affective disorder4. Borderline personality disorderAdditional NotesPlan:Continue present treatment plan. we are awaiting information from [facility] for placement effortsPortions of this section were scribed by Shell Ariza on 11/15/20 at 1415DATE SIGNED: 11/15/20 Electronically SignedTIME SIGNED: 1417 BROOKLYN ONEILL MD Name Value Range Interpretation Code Description Data Stephanie rce(s) Supporting Document(s) ID Date Data Source [id number] 11/14/2020 07:41:00 PM EDT [address] HEALTH PROGRESS NOTEPATIENT NAME: YARELI HATCH CATSALVADOR PHYSICIAN: BROOKLYN ONEILL MDAUTHOR: Mai SMITH,P.ADM. DATE: 10/31/20 MR#: [id number] NOTE DATE: 11/14/20 RM#: 310EVALUATION TIME: 1948 is 20-year-old female, currently single, past psych historyof bipolar disorder, poor impulse control and borderline personality disorderChief complaint concern about her ability to maintain safety and possiblesuicidal thoughtsEvents Since Last EntryYareli was seen today with practice coordinator Cata and a PA student. Sheseems to be in better mood today without any hostility or irritableness. Sheasked the same question, what is happening to her AOT. We advised her that theAOT is being pursued and Lorraine is checking with [facility] and she will get back tous. Ever since Zyprexa has been added her mood has improved. She wants to gothe community residence in [place]. The problem remains the uncertainty aboutwhen the bed will become available and whether she can go through the AOTprocess. She seems to be satisfied with the answer.Portions of this section were scribed by Shell Ariza on 11/14/20 at 194ObjectiveVital SignsVital Signs-LastResult Date TimeB/P 121/81 11/14 1849Pulse Ox 100 11/14 1115Temp 97.2 11/14 1115Pulse 80 11/14 1115Resp 16 11/14 1115Current MedicationsPropranolol HCl (Inderal) 10 MG 2000 POChlorpromazine HCl (Chlorpromazine HCl) 300 MG 1300,1999 POOlanzapine (Zydis (Zyprexa)) 5 MG DAILY SLBenztropine Mesylate (Cogentin) 1 MG DAILY POBenzocaine/Pectin/Carboxymethylcell (Cepastat) 1 JHOAN Q2HPRN PRN PONicotine (Nicorette) 2 MG Q2HPRN PRN POLoratadine (Claritin) 10 MG DAILY POAcetaminophen (Tylenol) 650 MG Q4HPRN PRN POAcetaminophen (Tylenol) 650 MG Q4HPRN PRN POAl Hydrox/Mg Hydrox/Simethicone (Maalox) 15 ML QIDPRN PRN POHydroxyzine (Atarax) 50 MG Q4HPRN PRN POMagnesium Hydroxide (Mom) 10 ML QHSPRN PRN POTrazodone HCl (Desyrel) 50 MG QHSPRN PRN POExaminationMusculoskeletalGait normalAdditional notesMental status:She is in a better mood. Affect appropriate. The patient denies any SI/HIideation. Insight is poor and judgment is fair. Reality testing is intact.Portions of this section were scribed by Shell Ariza on 11/14/20 at 1941Assessment/PlanDiagnosis1. Suicide attemptStatus Acute2. Obesity, morbid3. Bipolar affective disorder4. Borderline personality disorderAdditional NotesPlan:Will continue to pursue AOT as well as with [facility].Portions of this section were scribed by Shell Ariza on 11/14/20 at 1941DATE SIGNED: 11/14/20 Electronically SignedTIME SIGNED: 1948 BROOKLYN ONEILL MD Name Value Range Interpretation Code Description Data Stephanie rce(s) Supporting Document(s) ID Date Data Source [id number] 11/13/2020 04:22:00 PM EDT [place] [address]MENTAL HEALTH PROGRESS NOTEPATIENT NAME: YARELI HATCH CATTENGIOVANNY PHYSICIAN: BROOKLYN ONEILL MDAUTHOR: Mai SMITH,P.ADM. DATE: 10/31/20 MR#: [id number] NOTE DATE: 11/13/20 RM#: 310EVALUATION TIME: 1625 is 20-year-old female, currently single, past psych historyof bipolar disorder, poor impulse control and borderline personality disorderChief complaint concern about her ability to maintain safety and possiblesuicidal thoughtsEvents Since Last EntryMicadrienne was seen today with the practice coordinator. She continues to notshow any insight. For example, she was focused on staff not calling herAnthony. It appears she is looking for verbal conflict. She wants to escalatethem to a major conflict. She tries very hard in more chaos and confusion,tries hard not to show any insight or to look into her behaviors, tends toblame others, does not want to take responsibility for her actions. She tendsto sabotage all improvement and remains self-destructive.Portions of this section were scribed by Shell Ariza on 11/13/20 at 1622ObjectiveExaminationMusculoskeletalGait normalAdditional notesMental status:She continues to show verbal aggression as well as verbal abuse. Shows noinsight or impulse control. Judgment and insight is poor. The patient deniesany SI/HI ideation.Portions of this section were scribed by Shell Ariza on 11/13/20 at 1622Assessment/PlanDiagnosis1. Suicide attemptStatus Acute2. Obesity, morbid3. Bipolar affective disorder4. Borderline personality disorderAdditional NotesPlan:She is awaiting an opening in a community residence in [place]. Her Thorazinehas been changed to 300 mg 1PM and 8PM. She was in restrains last evening. Willwork on behavioral modification treatment plan. She is not cognizing well whatshe needs to do.Portions of this section were scribed by Shell Ariza on 11/13/20 at 1622DATE SIGNED: 11/13/20 Electronically SignedTIME SIGNED: 1624 BROOKLYN ONEILL MD Name Value Range Interpretation Code Description Data Stephanie rce(s) Supporting Document(s) ID Date Data Source [id number] 11/12/2020 08:02:00 PM EDT [facility] [place] [place] [address] PROGRESS NOTEPATIENT NAME: YARELI HATCH PHYSICIAN: BROOKLYN ONEILL MDAUTHOR: Mai SMITH,P.ADM. DATE: 10/31/20 MR#: [id number] NOTE DATE: 11/12/20 RM#: [id number] TIME: 2007 is 20-year-old female, currently single, past psych historyof bipolar disorder, poor impulse control and borderline personality disorderChief complaint concern about her ability to maintain safety and possiblesuicidal thoughtsEvents Since Last EntryMickayla told me that she is transitioning to a male, so she wants to be calledAnthony. She was seen with Gloria. She continued to express concerned that thenurses are not called her Rigo as per her concern and address her Yareli.She continued to express her frustration and anger. I explained to her that mary needs to express her intention to people whenever they address Ardenaymik and that she needs to tell them they need to call her Rigo and notrespond to people when they call her Yareli. She continued to expressfrustration in not getting things done in her way. Her coping skills are poor.Her impulse control is poor.Portions of this section were scribed by Shell Ariza on 11/12/20 at 2002ObjectiveVital SignsVital Signs-LastResult Date TimeB/P 125/79 11/12 1915Pulse Ox 99 11/12 1658Temp 97.7 11/12 1658Pulse 86 11/12 1658Resp 17 11/12 1658Current MedicationsChlorpromazine HCl (C hlorpromazine HCl) 200 MG TID POOlanzapine (Zydis (Zyprexa)) 5 MG DAILY SLBenztropine Mesylate (Cogentin) 1 MG DAILY POBenzocaine/Pectin/Carboxymethylcell (Cepastat) 1 JHOAN Q2HPRN PRN POChlorpromazine HCl (Chlorpromazine HCl) 200 MG QHS POPropranolol HCl (Inderal) 10 MG QHS PONicotine (Nicorette) 2 MG Q2HPRN PRN POLoratadine (Claritin) 10 MG DAILY POAcetaminophen (Tylenol) 650 MG Q4HPRN PRN POAcetaminophen (Tylenol) 650 MG Q4HPRN PRN POAl Hydrox/Mg Hydrox/Simethicone (Maalox) 15 ML QIDPRN PRN POHydroxyzine (Atarax) 50 MG Q4HPRN PRN POMagnesium Hydroxide (Mom) 10 ML QHSPRN PRN POTrazodone HCl (Desyrel) 50 MG QHSPRN PRN POExaminationMusculoskeletalGait normalAdditional notesMental status:Yareli Sierra continues to show continues to show poor impulse control.Has no insight. Shows poor judgment. frequently loses control and engagesherself in self-destructive behaviors. Her introspective skill are poor.Continues to post a threat herself and on others by throwing a chair.Portions of this section were scribed by Shell Ariza on 11/12/20 at 2002Assessment/PlanDiagnosis1. Suicide attemptStatus Acute2. Obesity, morbid3. Bipolar affective disorder4. Borderline personality disorderAdditional NotesPlan:Continues to need further hospitalization. We are also working with Lorraine hayKARLA about the benefits of AOT for her. [facility] [place] Will also work on her coping skill building.Portions of this section were scribed by Shell Ariza on 11/12/20 at 2002DATE SIGNED: 11/12/20 Electronically SignedTIME SIGNED: 2008 BROOKLYN ONEILL MD Name Value Range Interpretation Code Description Data Stephanie rce(s) Supporting Document(s) ID Date Data Source [id number] 11/12/2020 04:37:00 PM EDT [facility] [address] [id number] NOTE FOLLOW UPPATIENT NAME: YARELI HATCH PHYSICIAN: BROOKLYN ONEILL MDAUTHOR: Jacque Chowdhury. DATE: 10/31/20 MR#: [id number] NOTE DATE: 11/12/20 RM#: 310EVALUATION TIME: 1641 : 00Progress Note Follow UpSummaryWas asked to evaluate the patient by nursing staff as the patient had asubjective complaint of swallowing trouble as well as shortness of breath. Shereports this started after COVID vaccination. On physical exam the patient isclearly not short of breath and speaking in full sentences with no difficultywhatsoever. Examination of the oropharynx shows no swelling and the airway isentirely patent and the uvula is midline. The patient has no evidence of rashor itching. At this point the patient has no physical evidence of allergicreaction. She should be monitored closely for any wheezing, shortness ofbreath, itching, or rash. Certainly allergic reactions can take place aftervaccination. She may have the beginning of symptoms of an allergic reactionhowever physical exam reveals no evidence at this time. She is known formalingering, however, her subjective complaint should not be dismissed at thistime. Should any serious allergic reaction be evident at any time she shoul dgo to the emergency department for evaluation and treatment.Physical examOropharynx patent mucous membranes pink no swellingNo wheezing or stridor evidentNo rash or lesions.No itching or scratching notedSpeaks in full sentences.PlanMonitor. ED for any significant allergic reaction signs. Otherwise for anyitching or mild reaction Benadryl can be given and I will order this.DATE SIGNED: 11/12/20 Electronically SignedTIME SIGNED: 1642 THERESA SPANGLER Name Value Range Interpretation Code Description Data Stephanie e(s) Supporting Document(s) ID Date Data Source [id number] 11/11/2020 07:43:00 AM EDT [facility] Exam Number: [id number] Reported By: Maria De Jesus KIM M.D. Signed By: Rakan KIM M.D. Name Value Range Interpretation Code Description Data Stephanie rce(s) Supporting Document(s) ID Date Data Source [id number] 11/10/2020 11:20:00 AM EDT [facility] [address] HEALTH PROGRESS NOTEPATIENT NAME: YARELI HATCH PHYSICIAN: BROOKLYN ONEILL MDAUTHOR: Colleen SMITH,DhruvADM. DATE: 10/31/20 MR#: [id number] NOTE DATE: 11/10/20 RM#: 310EVALUATION TIME: 1121 is 20-year-old female, currently single, past psych historyof bipolar disorder, poor impulse control and borderline personality disorderChief complaint concern about her ability to maintain safety and possiblesuicidal thoughtsEvents Since Last EntryPatient refused to come for evaluation, mostly observed sleeping in her room,patient was seen with mental health worker, patient stated that she has beenfine and she does not want to talk to us at this point, denied having anyconcern about her safety and others and denied having any medical issues.Mental status examination: Patient was alert, arousable, her speech remainedloud, poor eye contact, appeared oriented with a place, person, mood was okay,affect was constricted, thought process was unable to assess much due toprovided limited information, thought content denied having any suicidal,homicidal ideations, unable to assess further information, insight and judgmentappeared impaired, and attention concentration unable to assessPlan: Consider to continue current treatment plan, patient was continuing oncurrent psychotropic medication as recommended by primary team, at this pointwe recommended avoiding as needed medication to medication side effect, nomedical issues reported at this point. Patient was encouraged to talk to uslater on if she feels so.ObjectiveVital SignsVital Signs-LastResult Date TimeTemp 96.6 11/10 0732B/P 123/76 11/09 1917Pulse 89 11/09 1223Pulse Ox 98 11/09 1102Resp 16 11/09 1102Current MedicationsChlorpromazine HCl (Chlorpromazine HCl) 200 MG QHS POPropranolol HCl (Inderal) 10 MG QHS PONicotine (Nicorette) 2 MG Q2HPRN PRN POLoratadine (Claritin) 10 MG DAILY POChlorpromazine HCl (Chlorpromazine HCl) 200 MG BID POAcetaminophen (Tylenol) 650 MG Q4HPRN PRN POAcetaminophen (Tylenol) 650 MG Q4HPRN PRN POAl Hydrox/Mg Hydrox/Simethicone (Maalox) 15 ML QIDPRN PRN POHydroxyzine (Atarax) 50 MG Q4HPRN PRN POMagnesium Hydroxide (Mom) 10 ML QHSPRN PRN POTrazodone HCl (Desyrel) 50 MG QHSPRN PRN POExaminationMusculoskeletalGait normalAssessment/PlanDiagnosis1. Suicide attemptStatus Acute2. Obesity, morbid3. Bipolar affective disorder4. Borderline personality disorderDATE SIGNED: 11/10/20 Electronically SignedTIME SIGNED: 112 BOGDAN ALMAGUER MD Name Value Range Interpretation Code Description Data Stephanie rce(s) Supporting Document(s) ID Date Data Source [id number] 11/09/2020 11:20:00 AM EDT [address] HEALTH PROGRESS NOTEPATIENT NAME: YARELI HATCH PHYSICIAN: BROOKLYN ONEILL MDAUTHOR: Colleen SMITH,DhruvADM. DATE: 10/31/20 MR#: [id number] NOTE DATE: 11/09/20 RM#: 310EVALUATION TIME: 1121 Since Last EntryPatient is 20-year-old female, currently single, past psych historyof bipolar disorder, poor impulse control and borderline personality disorderChief complaint concern about her ability to maintain safety and possiblesuicidal thoughtsHistory of present illness: Patient was seen in the day room where she washallucinating using and playing cards, denied having any concern at this pointand reporting feeling better, unable to assess much information due to limitedcooperation at this point.Mental status examination: Patient was alert, oriented with a place, person,appeared somewhat inattentive, her speech remain slightly loud, mood was okay,affect was constricted, thought process was mostly superficially organized,thought content unable to assess much information, attention concentrationlimited, insight and judgment appear limitedPlan: Consider to continue current treatment plan, no medication changes,currently working on safe discharge plan. No physical distress notedObjectiveVital SignsVital Signs- LastResult Date TimePulse Ox 98 11/09 1102B/P 112/68 11/09 1102Temp 97.3 05/01 1102Pulse 119 11/09 1102Resp 16 11/09 1102Current MedicationsChlorpromazine HCl (Chlorpromazine HCl) 200 MG QHS POPropranolol HCl (Inderal) 10 MG QHS PONicotine (Nicorette) 2 MG Q2HPRN PRN POLoratadine (Claritin) 10 MG DAILY POChlorpromazine HCl (C hlorpromazine HCl) 200 MG BID POAcetaminophen (Tylenol) 650 MG Q4HPRN PRN POAcetaminophen (Tylenol) 650 MG Q4HPRN PRN POAl Hydrox/Mg Hydrox/Simethicone (Maalox) 15 ML QIDPRN PRN POHydroxyzine (Atarax) 50 MG Q4HPRN PRN POMagnesium Hydroxide (Mom) 10 ML QHSPRN PRN POTrazodone HCl (Desyrel) 50 MG QHSPRN PRN POExaminationMusculoskeletalGait normalAssessment/PlanDiagnosis1. Major depressive disorderStatus Acute2. Suicide attemptStatus Acute3. Obesity, morbidDATE SIGNED: 11/09/20 Electronically SignedTIME SIGNED: 1122 BOGDAN ALMAGUER MD Name Value Range Interpretation Code Description Data Stephanie rce(s) Supporting Document(s) ID Date Data Source [id number] 11/08/2020 01:30:00 PM EDT [address] HEALTH PROGRESS NOTEPATIENT NAME: YARELI HATCH CATTENGIOVANNY PHYSICIAN: BROOKLYN ONEILL MDAUTHOR: Mai SMITH,P.ADM. DATE: 10/31/20 MR#: [id number] NOTE DATE: 11/08/20 RM#: 310EVALUATION TIME: 1334 Since Last EntryYareli was seen today along with the practice coordinator, Gloria, and a [facility]student [facility]. She apologized for not coming to the officefor session yesterday. She inquired about her discharge. Umm states she isdoing well and thinks she is ready for the discharge with DSS. I informed thepatient that we are working on AOT for her. She was not cooperative. Isuggested that patient that she is not ready for the discharge yet. Patient gotupset. She denies any suicidal thoughts or delusions. She states, My insuranceis not going to pay for my hospitalization, and you are keeping me here evenwhen I am not suicidal . Umm was focused on the discharge during thesession. She refused to understand that discharging her with DSS is not a gooddischarge plan. Patient was resistant to leave the office when told that thesession is over. She was then escorted out of the office.I explained to Yareli that we do not have safe discharge plan for her, hence,I cannot consider discharging her.Portions of this section were scribed by Shell Ariza on 11/08/20 at 1558ObjectiveVital SignsVital Signs-LastResult Date TimePulse Ox 96 11/08 1100B/P 123/80 11/08 1100Temp 97.0 11/08 1100Pulse 98 11/08 1100Resp 16 11/08 1100Current MedicationsChlorpromazine HCl (Chlorpromazine HCl) 200 MG QHS POPropranolol HCl (Inderal) 10 MG QHS PONicotine (Nicorette) 2 MG Q2HPRN PRN POLoratadine (Claritin) 10 MG DAILY POChlorpromazine HCl (Chlorpromazine HCl) 200 MG BID POAcetaminophen (Tylenol) 650 MG Q4HPRN PRN POAcetaminophen (Tylenol) 650 MG Q4HPRN PRN POAl Hydrox/Mg Hydrox/Simethicone (Maalox) 15 ML QIDPRN PRN POHydroxyzine (Atarax) 50 MG Q4HPRN PRN POMagnesium Hydroxide (Mom) 10 ML QHSPRN PRN POTrazodone HCl (Desyrel) 50 MG QHSPRN PRN POExaminationMusculoskeletalGait normalMental Status ExaminationSpeech productiveThought Process superficially organizedThought Content abnormalAssociations intactAbnormal or Psychotic Thoughts no impairmentPatient's Judgement poorInsight poorReality Testing intactDecision Making Capacity poorMental StatusOrientation time (x3)Recent & Remote Memory intactConcentration normalMood irritableAffect bluntedPortions of this section were scribed by Shell Ariza on 11/08/20 at 1558Assessment/PlanDiagnosis1. Major depressive disorderStatus Acute2. Suicide a ttemptStatus Acute3. Obesity, morbidAdditional NotesPlan:Patient was quite agitated today. I authorized PRN injection for her. Herbehavior clearly indicates she lacks any impulse control and not thinkingcompletely. Lorraine was discussing with [facility] about further treatment options forher as Lorraine is not sure she meets the criteria for AOT. Since we do not havea safe discharge plan for her, I cannot consider discharging her.Portions of this section were scribed by Shell Ariza on 11/08/20 at 1558DATE SIGNED: 11/08/20 Electronically SignedTIME SIGNED: 1602 BROOKLYN ONEILL MD Name Value Range Interpretation Code Description Data Stephanie rce(s) Supporting Document(s) ID Date Data Source [id number] 11/07/2020 03:12:00 PM EDT [address] HEALTH PROGRESS NOTEPATIENT NAME: YARELI HATCH CATTENGIOVANNY PHYSICIAN: BROOKLYN ONEILL MDAUTHOR: Mai SMITH,P.ADM. DATE: 10/31/20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 ng/ml COCAINE VISTA NEG NEGATIVE [facility] MINIMUM LEVEL OF DETECTION IS 300 ng/ml AMPHETAMINES NEG NEGATIVE [facility] MINIMUM LEVEL OF DETECTION IS 1000 ng/ml BARBITURATES NEG NEGATIVE [facility] CUTOFF CONCENTRATION IS 200 ng/ml CANNABINOIDS NEG NEGATIVE [facility] CUTOFF CONCENTRATION IS 50 ng/ml METHADONE VISTA NEG NEGATIVE [facility] MINIMUM LEVEL OF DETECTION IS 300 ng/ml OPIATE VISTA NEG NEGATIVE [facility] MINIMUM DETECTION LEVEL IS 300 ng/ml ID Date Data Source [id number] 10/29/2020 05:57:00 PM EDT [facility] Name Value Range Interpretation Code Description Data Stephanie rce(s) Supporting Document(s) URINE COLOR Yellow [facility] UAPR Turbid [facility] UGLU Negative NEGATIVE [facility] URINE BILIRUBIN [facility]GATIVE [facility] UKET Negative NEGATIVE [facility] USG 1.024 1.010-1.025 [facility] UBLO Negative NEGATIVE [facility] UpH 7.0 5.0-8.0 [facility] UPRO Negative Negative [facility] UUB 1.0 mg/dL 0.2-1.0 [facility] UNIT Negative Negative [facility] ULEU Negative Negative [facility] ID Date Data Source [id number] 10/31/2020 10:31:00 AM EDT [facility] Physician DocumentationClaxlexy-Naveen Hinkle edical CenterName: Yareli DuvallAge: 20 yrsSex: FemaleDOB: 2000MRN: [id number] Date: 10/29/2020Time: 17:31Account#: [id number] MD:ED Physician Alissa العلي Summary:10/31/20 08:52Hospitalization OrderedHospitalization Status: Inpatient Admission seProvider: Colleen, Bogdan seLocation: Mental Health Unit seCondition: Stable seProblem: an acute exacerbation seSymptoms: have worsened seRoom Assignment: seDiagnosis- Major depressive disorder, recurrent, unspecified seAdditional Information- Admission Type: Inpatient Status. seForms:- Medication Reconciliation se- SBAR se- Medication Reconciliation Form - 2nd Copy seHPI:10/2018:29 This 20 yrs old White Female presents to ER via [facility] mp9qast complaints of Psych Problem.19:29 Patient comes the ER today for mental health evaluation. Patient was hc1dxbp in the ER for mental health on October 26. She was admitted atthat time. Patient reports she is feeling depressed and anxious. Sheis feeling suicidal with a plan to overdose or hang herself. She hasattempted suicide in the past by overdose. No homicidal lesion orhallucinations. She has not been taking her medications. She deniesany other problems or any other complaints..Historical:- Allergies: Haldol; Risperdal;- Home Meds:1. chlorpromazine 100 mg Oral tab 2 tabs twice a day as needed2. Desyrel 50 mg Oral tab nightly3. naproxen 500 mg Oral tab twice a day as needed4. inderal 10mg twice a day5. cetirizine 10 mg oral tab 1 tab once daily6. quetiapine 50 mg oral Tb24 twice a day7. Seroquel 25 mg Oral tab nightly- PMHx: ADHD; ANXIETY; BIPOLAR DISORDER; Depressive disorder; PsychHx; ptsd;- Immunization history: Flu vaccine is not up to date.- Social history: Smoking status: Patient states was never smoker oftobaAeroposto. ETOH status Denies use of ETOH.- Advance Directives:: None.ROS:19:30 Constitutional: Negative for fever. Eyes: Negative for acute changes. th4ENT: Negative for nasal discharge, rhinorrhea, sinus congestion.Neck: Negative for acute changes. Cardiovascular: Negative for chestpain. Respiratory: Negative for shortness of breath. Abdomen/GI:Negative for abdominal pain, nausea, vomiting, diarrhea. Back:Negative for acute changes. : Negative for urinary symptoms.MS/extremity: Negative for acute changes. Skin: Negative for rash.Neuro: Negative for headache, weakness. Psych: Positive for anxiety,depression, suicidal ideation, Negative for auditory hallucinations,visual hallucinations, homicidal ideation, suicide gesture.Exam:19:30 Constitutional: This is a well developed, well nourished patient who th4is awake, alert, and in no acute distress. Head/Face: Normocephalic,atraumatic.19:30 Eyes: Periorbital structures: appear normal, Pupils: equal, round,and reactive to light, Extraocular movements: intact throughout.19:30 ENT: Mouth: Oral mucosa: moist, Voice: is normal.19:30 Neck: External neck: is normal, ROM/movement: is normal, is supple.19:30 Cardiovascular: Rate: normal, Rhythm: regular, Heart sounds: normal,normal S1and S2, no murmur.19:30 Respiratory: the patient does not display signs of respiratorydistress, Respirations: normal, Breath sounds: are normal, clearthroughout.19:30 Abdomen/GI: Bowel sounds: normal, Palpation: abdomen is soft andnon-tender, in all quadrants.19:30 Back: pain, is absent, ROM is normal .19:30 Musculoskeletal/extremity: Extremities: no acute changes.19:30 Skin: Appearance: Color: normal in color, Temperature: warm,Moisture: dry.19:30 Neuro: Orientation: is normal, Mentation: is normal, Cranial nerves:CN II- XII are normal as tested.19:30 Psych: Behavior/mood is pleasant, cooperative, suicidal, depressed,Affect is calm, Oriented to person, place, time, Patient havingthoughts of suicide. Plan for suicide is Overdose or hangingJudgement / Insight is impaired. Delusions/hallucinations are notpresent.Vital Signs:17:33 BP 135 / 86; Pulse 100; Resp 18; Temp 98.5; Pulse Ox 97% ; Pain 0/10; tlm23:02 BP 130 / 89; Pulse 86; Resp 17; Temp 98.6; Pulse Ox 94% ; tp204/2104:39 BP 134 / 67 (auto/); Pulse 82 MON; Pulse Ox 99% ; tp204:46 BP 127 / 71 (auto/); Pulse 73 MON; Pulse Ox 100% ; tp205:01 BP 145 / 84 (auto/); Pulse 89 MON; Pulse Ox 98% ; tp205:25 BP 114 / 56 (auto/); Pulse 89 MON; Pulse Ox 98% ; tp205:31 BP 118 / 61 (auto/); Pulse 83 MON; Pulse Ox 97% ; tp208:48 BP 121 / 78; Pulse 94; Resp 14; Temp 98.0; Pulse Ox 97% ; Pain 0/10; tlm19:26 BP 144 / 79; Pulse 84; Resp 17; Temp 98.3; Pulse Ox 96% ; kk204/2210:30 klp10:30 pt refused admission vitals klpMDM:10/2018:22 Patient medically screened. th422:27 ECG:. th404/2104:46 ED course: Patient exhibiting self-injurious behavior in the ER not lu5jgqyowzcvq to verbal de-escalation requiring chemical sedation. Averbal order was given for B-52 while I was busy with another issue.When I went to put the order in the computer, Haldol allergy poppedup however the medication was already given by the nurse. Patientclosely monitored for any evidence of allergic reaction..06:46 Data reviewed: vital signs, nurses notes, lab test result(s). ED yx8yagznl: Care is endorsed to Dr. العلي at change of shift pendingPSA evaluation and disposition. Patient is medically clear..20:46 ED course: Patient with some noted agitation to the point where she dk2was causing self injury, manually scratching herself. No injuries tothe point of requiring sutures or other repair but patient isbecoming a danger to herself. We initially attempted intramuscularAtivan and Benadryl with minimal effect. An additional dose of Ativan4 mg was given after 1 hour with the patient continuing to showagitation, will be monitored for need for further restraints or ifmedications provide some relief.10/2203:38 ED course: Patient continued to note aggressive behavior and started zx2bdnwfz verbal threats to staff including threatening to elope andhurt members of staff. After initial mechanical restraints wereremained as the patient did not improve, she regressed to this pointof concerned so the restraints were once again required. Roman meade Geodon 20 mg by IM this time with better effect, seen restingcomfortably on most recent assessment.10/2016:35 Order name: Acetaminophen Level; Complete Time: 19:28 :35 Order name: CBC with diff; Complete Time: 19:28 :35 Order name: CMP; Complete Time: 19:28 :35 Order name: ETOH; Complete Time: 19:28 :35 Order name: Salicylate Level; Complete Time: 19:28 :35 Order name: Serum HCG Qualitative; Complete Time: 19:28 :35 Order name: Triage - Drug Screen; Complete Time: 19:28 :35 Order name: UA; Complete Time: 19:28 :02 Order name: EKG in Patient's Room tp:26 Order name: COVID-19 PROF; Complete Time: 04:79JKEX51:35 Order name: Diet - Mental Health Tray (call dietary); Complete Time: tl::35 Order name: Belongings List; Complete Time: 09:37 :35 Order name: Document Weight and Height for BMI; Complete Time: 09:37 :35 Order name: Mental Health Level 3; Complete Time: 09:37 :35 Order name: VS q shift; Complete Time: 21:08 :29 Order name: Medically Cleared for Eval by-Psychosocial, Ios Architect th4(.PSA); Complete Time: 20::02 Order name: EKG.; Complete Time: 22:08 :24 Order name: Mental Health Level 4; Complete Time: 09:2 9 :54 Order name: Restrain Patient; Complete Time: 21:54 ve5Kytgamthn Medications:10/2018:54 Drug: Seroquel - QUEtiapine 25 mg [quetiapine 25 mg tablet (1 tabs)] uq0Jpifi: PO;22:08 Follow up: Response: No adverse reaction tp204/2104:38 Drug: B52 IM - (LORazepam 2 mg, diphenhydrAMINE 50 mg, Haloperidol sv2Pxwgnvz 5 mg) Route: IM; Site: right vastus lateralis;05:25 Follow up: Response: No adverse reaction; No change in condition tp208:18 Drug: Ondansetron 8 mg [ondansetron HCl 4 mg tablet (2 tabs)] Route: tlmPO;12:41 Not Given (Patient Refused): Propranolol 10 mg PO once wd112:41 Not Given (Patient Refused): cetirizine 10 mg PO once wd112:41 Not Given (Patient Refused): SEROquel 50 mg PO once wd119:50 Drug: LORazepam 2 mg [lorazepam 2 mg/mL injection solution (1 mL)] jw5{Note: given for severe anxiety.} Route: IM; Site: right deltoid;20:24 Follow up: Response: No adverse reaction; No change in condition jw519:50 Drug: diphenhydrAMINE 50 mg [diphenhydramine 50 mg/mL injection tl9ckjzngrd (1 mL)] {Note: given for severe anxiety.} Route: IM; Site:right deltoid;20:25 Follow up: Response: No adverse reaction; No change in condition jw520:41 Drug: LORazepam 4 mg [lorazepam 2 mg/mL injection solution (2 mL)] jw5{Note: given for severe anxiety.} Route: IM; Site: left deltoid;21:14 Follow up: Response: No adverse reaction; Anxiety decreased jw504/2200:32 CANCELLED (Duplicate Order): LORazepam 4 mg IM once dk200:40 Drug: Geodon 20 mg [ziprasidone 20 mg/mL (final concentration) oa5hlzidovooxaad solution (1 mL)] Route: IM; Site: right deltoid;01:10 Follow up: Response: No adverse reaction; Anxiety decreased jw508:59 Not Given (Patient Refused): cetirizine 10 mg PO once klp08:59 Not Given (Patient Refused): SEROquel 50 mg PO once klp09:00 Not Given (Patient Refused): chlorproMAZINE 200 mg PO once klp09:00 Not Given (Patient Refused): Propranolol 10 mg PO once klpEC10/2021:27 Rate is 75 beats/min. Rhythm is regular, Normal Sinus Rhythm. QRS gs1Ugyu is Normal. NV interval is normal. QRS interval is normal. QTinterval is normal. No Q waves. T waves are Normal. No ST changesnoted. Clinical impression: Normal ECG. Interpreted by me.Signatures:Dispatcher [employer] Елена Boogie RN RN klpMartin, Tisa, RN RN tlmElliott, Suzanne, MD MD seHowland, Todd, MD MD ea2HrwjyFortunato Mark RN RN xh6NnkirqBreonna Marie RN RN bx8JnvschcAnoop Bowman MD MD dk2Dow, Wendy RN ef8Tdwxxpwxpkk: (The following items were deleted from the chart)10/2110:57 11:56 COVID-19 PROFILE+LAB ordered. UBLQBVLH91/2200:32 00:10 LORazepam 4 mg IM once ordered. dk2 dk2 Name Value Range Interpretation Code Description Data Stephanie rce(s) Supporting Document(s) ID Date Data Source [id number] 10/31/2020 10:31:00 AM EDT [facility] terName: Yareli DuvallAge: 20 yrsSex: FemaleDOB: 2000MRN: [id number] Date: 10/29/2020Time: 17:31Account#: [id number] Willow SMITH:Diagnosis: Major depressive disorder, recurrent, unspecifiedPresentation:10/2016:31 Presenting complaint: Patient states: "suicidal thought with plan and tlmanxiety:". Coronavirus Screening: Have you been diagnosed withCOVID-19 in the past 30 days? no [facility]? no Flu-like symptoms reported in the last 14 days: no.Have you had close contact with confirmed or suspected COVID-19 case?no Do you live in a setting where a large of amount of people live,such as residential, family care, usp, etc? no. Have you traveledto a location with widespread or ongoing COVID-19 community spread [facility]? no Have you traveled internationally or hadcontact with someone that has traveled and has been ill in the past 3weeks? no Have you received the COVID vaccine? No. CommunicationSpeaks Cymro? Yes, is preferred language. Communicable DiseaseScreen: Negative for fever>/= 100 degrees Fahrenheit. Communicabledisease screen is negative. (-) rash or unusual skin lesion (-)travel/contact with traveler (-) respiratory symptoms.17:31 Acuity: Triage 2 tlm17:31 Method Of Arrival: Walked to Hospital tlm17:32 Acuity Assignment: Triage 2 tlmTriage Assessment:17:33 General: Appears in no apparent distress, well nourished, well tlmgroomed, Behavior is cooperative. Sepsis Screening: (1)Signs/symptomsinfection No. Pain: Denies pain. PSS-3 Now I'm going to ask you somequestions that we ask everyone treated here, no matter what problemthey are here for. It is part of the hospital's policy and it helpsus to make sure we are not missing anything important. Over the past2 weeks, have you felt down, depressed, or hopeless? Yes. Exhibitingdepressed mood. Positive screen for depression, MD provider aware ofpositive screening. Education provided. Over the past 2 weeks, havehad thoughts of killing yourself? Yes, with current ideation. ActiveSuicidal Ideation (SI). Positive screen for suicide risk. MD provideraware of positive screening, suicide precautions implemented. ESS-6ordered.Historical:- Allergies: Haldol; Risperdal;- Home Meds:1. chlorproma zine 100 mg Oral tab 2 tabs twice a day as needed2. Desyrel 50 mg Oral tab nightly3. naproxen 500 mg Oral tab twice a day as needed4. inderal 10mg twice a day5. cetirizine 10 mg oral tab 1 tab once daily6. quetiapine 50 mg oral Tb24 twice a day7. Seroquel 25 mg Oral tab nightly- PMHx: ADHD; ANXIETY; BIPOLAR DISORDER; Depressive disorder; PsychHx; ptsd;- Immunization history: Flu vaccine is not up to date.- Social history: Smoking status: Patient states was never smoker oftobaAeroposto. ETOH status Denies use of ETOH.- Advance Directives:: None.Screenin:00 Abuse screen: Denies threats or abuse. Denies injuries from another. tlmNutritional screening: No deficits noted. Offer of HIV testing:patient was previously offered screening. Fall Risk No fall in past12 months (0 pts).Assessment:18:00 Pain: Denies pain. Sepsis Screening: Sepsis is not suspected at this tlmtime. Derm: Skin is normal. General: Appears in no apparent distress,obese, well nourished, well groomed, Behavior is crying. Neuro: Levelof Consciousness is awake, alert. Respiratory: Airway is patentRespiratory effort is even, Respiratory pattern is regular.Musculoskeletal: Range of motion intact in all extremities.21:53 Reassessment: Patient appears in no apparent distress at this time. tp204/2100:03 Reassessment: Patient appears in no apparent distress at this time. tp202:10 Reassessment: Patient appears in no apparent distress at this time. tp202:37 Reassessment: MHW reported that the patient found a paper clip xr4anlzdgdnmy on a "window"- she would not give it to the sitter- hetook it from her hand. She then got up from her bed and is pacing inhallway. MHW and PSA w/ patient keeping her in her room. She ismd jerry made aware. PSA and I stripped room and removed allbelongings and looked under bed and mattress to ensure there were nomore items that pt was hiding from us.04:09 Reassessment: Patient appears in no apparent distress at this time. tp204:48 Reassessment: MHW and PSA reported that patient had been "digging and lx3iwfixydldc herself" and despite constant redirection, MHW had tomanually hold wrists down to prevent her from doing this. She doeshave bilateral superficial scratches to her wrists w/o bleeding. R17tequjqvz ordered and given.05:26 Reassessment: insurance writer was called back to room by psa- pt was still ag8hwhitqxiut to dig at herself. She was verbally redirected. I spoke w/her also and she's currently resting with hands visible. MHW atbedside.06:06 Reassessment: Patient appears in no apparent distress at this time. tp208:19 Reassessment: Patient appears in no apparent d istress at this time. tlm08:43 General: attempted to give patient her daily medications she refused tlmat this time.10:32 Reassessment: Patient appears in no apparent distress at this time. tlm19:45 General: Called to patients room due to patient harming self by rm2klwlubdfar self with her fingernails several attempts made to getpatient to stop, patient asked why she was doing this and she replied"because I'm depressed and anxious" patient offered medication tohelp with her severe anxiety and she accepted MD made aware ofsituation and order recieved..20:39 Reassessment: Patient continues to try to hurt self and report severe ax6gznmcvx MD called to bedside to assess the situation and additionalmedications ordered..21:55 Reassessment: Despite all other interventions patient continues to jw5try to harm self MD notified and order received to place patient intorestraints at this time for safety.22:48 Reassessment: Patient appears in no apparent distress at this time. yz4Pusrfjq released from restraints at 2245, patient reports that theyunderstand that self harm is not permitted and that they will not beallowed to harm themselves or others while here..23:51 Reassessment: Patient appears in no apparent distress at this time. jw504/2200:20 Reassessment: Patient has started to again try to cause self harm now jw5not only trying to use her fingernails but also trying to find thingson the bed to take off, so at this time the bed has been removed fromthe room and the mattress placed on the floor for safety, patientalso has stepped toward the door gesturing and saying that "I amleaving" patient did not go as far as moving towards staff and diddecide to lay back down after several minutes of staring and sizingup staff..00:43 Reassessment: Patient continued to escalate and did try to force her jw5way past staff to leave became aggressive yelling and threatening MDwas continually updated on the situation and order was received tomedicate and restrain patient.01:28 Reassessment: Patient appears in no apparent distress at this time. jw503:12 Reassessment: Patient appears in no apparent distress at this time. jw504:57 Reassessment: Patient appears in no apparent distress at this time. jw506:24 Reassessment: Patient appears in no apparent distress at this time. jw509:19 General: Appears uncomfortable, irritable. . Behavior is cooperative. klp09:26 Reassessment: Patient states feeling better. Patient states symptoms klphave improved. resting on stretcher. quieter.Psychosocial:10/2019:56 SAFE Act Report Not Completed. Intervention: Observation Level 3. [address] consult is initiated at 20:30. Referral Information:Evaluation referral is generated by the patient himself / herself.The patient was referred for evaluation because expresses suici dalideations with the plan to hang her self or to overdose.20:57 Subjective: The patients chief complaint is Pt presents to the ED as sm8a walk in due to suicidal ideations. Pt was discharged from [facility] three hours before arriving to the ED. She was admitted10/26/20. She states that she had expressed suicidal ideations beforebeing discharged. Pt was tearful. She states that she has a plan toeither hang her self or to overdose. Pt reports a history of suicideattempts, she has attempted by overdosing multiple times. Last timeshe had overdosed was about two weeks ago. Pt reports not being ableto contract for safety at this time and wishes for inpatient mentalhealth treatment. Pt has a long history of inpatient mental health.She has been admitted at [facility], [facility], [facility], and [facility].Pt has a history of Bipolar, Major Depressive, Anxiety. She statesthat she does not take her medications constantly which continuedwhile she was inpatient. Pt reports that she is set up [facility]. She will be seeing [facility] for a counselor andshe has not been yet up with a psychiatrist yet. Pt maintains SIwhile in the ED. Pt denies HI. Pt denies hallucinations. Pt does notpresent with any delusional thoughts. Delusions are denied,Hallucinations are denied. Patient's mood is depressed, Havingthoughts of suicide. Plan for suicide is to overdose or hang her self.21:03 Patient reports history of anxiety, Bipolar Disorder, Depression, ty7uhwihfh attempt: multiple by overdose Other: Borderline PersonalityDisorder. Mental Health Admissions: multiple admissions. Last was [facility] [place] 10/26/20 and was discharged today Current Outpatient MentalHealth Services: Therapist / Agency: [facility]. Living Environment:Family / Home Support: poor The patient currently lives with his /her significant other, Wilmar Loza. The patient is single. Detox /Rehab Admissions: None. Current Outpt Alcohol or Substance AbuseServices: None. Patient presents to Emergency Department with thefollowing symptoms within the past 2 weeks: depressed mood,non-compliance, suicidal ideation with plan for hanging, pills.Objective: Patient is cooperative, using poor eye contact, Speech isnormal. Affect is Tearful. Mental status exam: Patients appearance isappropriate, Patient's behavior is normal, Speech is normal. Affectis flat. Mood is depressed. Perception is normal. Appetite is normal.Memory is good. Energy level is normal. Content of thought is normal.Thought Process is intact. Cognitive level is Oriented toperson,place and time. Insight / Judgment is poor. Rapport withinterviewer is good. Suicidal Idea tion: Plan is hanging. pills.Homicidal Ideation: Denies.21:17 Notification to family of patient status is not currently needed or td4svuhdwuiljj. Consultation: Psych MD informed of patient's status at21:00, ED MD notified of patients status at 21:17. Disposition:Medically cleared for disposition by Dr Argueta. Psychiatric Consultis performed by phone with Dr Almaguer The patient is to be transferredto bed available facility. Legal Status: Patient's legal status [facility]: . Commitment papers arecompleted. DSM-V DX [place] diagnosis: Depression, Unspecified.Insurance Pre-Certification: Not Required. [facility] Admission Criteria:The patient is experiencing suicidal ideation. The patient requirescontinuous observation and/or control to protect self, others orproperty. The patient's care requires a multi-modal treatment planunder close supervision and coordination due to the complexity andseverity of the patient's symptoms. The patient requiresadministration and monitoring of psychoactive medications by skilledmedical providers due to the side effects of the psychoactivemedications or significant dosage adjustments. Awaiting referralhospital acceptance. The patient is not a cashier self service gasoline or militarydependent. [place] Suicide Severity Rating Scale: Suicidal IdeationRating 5; Intensity of Ideations Rating 25; Suicidal Behavior Rating1.10/2100:37 Narrative Pt was using her sheet and pillow case to wrap around her tk4qalc. Blankets and pillow case were removed. Pt was spoken to aboutthis which she laughed. Pt threatened to leave but was redirected. Ptis currently sitting in the chair in her room watching TV. Sitter andPSA are present. Safety is maintained.02:41 Narrative Pt is awake. Socks have been removed due to pt taking them sm8off and trying them together to wrap around her neck.03:09 Narrative Pt digging at left arm. She has been redirected multiple qq6zdwur by PSA and sitter. Security is present. Pt is now currentlywaiting TV with both hands visible.03:58 Narrative Pt is laying down, watching TV. Sitter is present. Safety sm8is maintained.04:43 Narrative Pt started digging at her arm again. PSA and sitter had dn8mjzgbgoae to redirect the pt with no success. Nurse and MD was madeberry. B52 was given. Pt has a keisha on her left wrist and a smallermark on her right wrist. Both have been looked at by nurse.19:21 Narrative PSA role handed off to this insurance writer at 1900. sm804/2201:04 Narrative Since shift change at 1930 pt has been digging herself, eu1lkbbscmvzou to leave, yelling and swearing, she has kicked the wallsand door. Pt was put in restraints twice. While in restraints ptwould threaten staff members and kept trying to get out of them. Pthas been very difficult to redirect. PSA, 3 ED sitters, Nurse as allbe in the room at tempting to talk to the pt and redirect. MD hasattempted to speak to her with no success. Pt has been givenmedications to help relax. Pt is currently sleeping. Sitter ispresent, taking vitals. Safety is maintained.04:06 Narrative PSA is sleeping. Sitter is present. Safety maintained. sm807:23 Narrative PSA role handed off to this insurance writer at 7:30 AM. kf09:33 Disposition: The patient is admitted to [facility] Patient report is kfgiven to Dylan Cabrera RN. Legal Status: Patient's legal status willbe Emergency: 9.39. Commitment papers are completed. PT has beenprovided with a copy of her legal status and rights.Psych:10/2017:02 Subjective: Patient's mood is euphoric, Delusions are denied, tlmHallucinations are denied Having thoughts of suicide. Plan forsuicide is to overdose on drugs, pt just discharged hours ago fromupstairs she reports she told them she didn't feel ready to go home.Objective: Patient is cooperative, Speech is normal, Affect isappropriate. Interventions: Removed personal items and placed in bag.Patient placed in hospital gown. Searched person for dangerous items.Urine collected and sent for urine drug test. Belonging list filledout. Observation Level Level 3 Charge nurse notified. Genie Glez Level 3 order placed.10/2103:38 Interventions: Observation Level Level 4 Sitter needed. Provider jh7Pdmoymtv Nils Argueta MD Charge Nurse notified Breonna Marie Level 4order placed.Vital Signs:10/2016:33 BP 135 / 86; Pulse 100; Resp 18; Temp 98.5; Pulse Ox 97% ; Pain 0/10; tlm23:02 BP 130 / 89; Pulse 86; Resp 17; Temp 98.6; Pulse Ox 94% ; tp204/2104:39 BP 134 / 67 (auto/); Pulse 82 MON; Pulse Ox 99% ; tp204:46 BP 127 / 71 (auto/); Pulse 73 MON; Pulse Ox 100% ; tp205:01 BP 145 / 84 (auto/); Pulse 89 MON; Pulse Ox 98% ; tp205:25 BP 114 / 56 (auto/); Pulse 89 MON; Pulse Ox 98% ; tp205:31 BP 118 / 61 (auto/); Pulse 83 MON; Pulse Ox 97% ; tp208:48 BP 121 / 78; Pulse 94; Resp 14; Temp 98.0; Pulse Ox 97% ; Pain 0/10; tlm19:26 BP 144 / 79; Pulse 84; Resp 17; Temp 98.3; Pulse Ox 96% ; kk204/2210:30 klp10:30 pt refused admission vitals klpED Course:10/2016:31 Patient arrived in ED. tlm17:32 Triage completed. tlm18:01 Patient has correct armband on for positive identification. [facility] Bed in low position. Call light in reach.18:01 No Physician assisted procedures completed. Labs drawn. Collected by tlmlab. Urine collected. Clean catch specimen.19:13 No apparent distress. Psychosocial Ios Architect. tlm19:13 Sitter at bedside. tlm19:22 Nils Argueta MD is Attending Physician. :18 Notified ED physician of other sea captain pt vomited would like tlmsomething, new orders received.08:19 No apparent distress. Awaiting disposition. tlm08:19 Sitter at bedside. Diet: Patient given regular meal. Vomited tlmfood/fluids.10:32 Appears to be sleeping. Awaiting disposition. tlm10:32 Sitter at bedside. tlm12:15 pt irritable refused offered am meds. wd112:15 Sitter at bedside. Diet tray given. wd112:43 Sitter at bedside. wd113:30 Sitter at bedside. wd114:41 No apparent distress. Resting quietly. wd119:00 Sitter at bedside. jw520:57 Fortunato Mark, RN is Primary Nurse. jw520:58 Sitter at bedside. jw522:49 Sitter at bedside. jw523:55 Sitter at bedside. jw504/2201:29 Sitter at bedside. jw503:12 Sitter at bedside. jw504:57 Sitter at bedside. jw506:24 Sitter at bedside. jw507:08 Primary Nurse role handed off by Fortunato Mark, JOSE LUIS klp07:08 Елена Hugo, JOSE LUIS is Primary Nurse. klp07:08 No apparent distress. Appears to be sleeping. klp07:08 Report received from Fortunato Mark RN. klp07:54 No apparent distress. Appears to be sleeping. klp07:54 Diet: Patient given regular meal. klp08:41 No apparent distress. Appears to be sleeping. klp08:51 Attending Physician role handed off by Nils Argueta MD se08:51 Kylie العلي MD is Attending Physician. se08:52 Bogdan Almaguer MD is Hospitalizing Provider. se09:01 Appears agitated. Pt. is pacing. klp09:14 Notified ED physician of other pt's refusal of morning meds. no new klporders at present.Administered Medications:10/2018:54 Drug: Seroquel - QUEtiapine 25 mg [quetiapine 25 mg tablet (1 tabs)] ce8Czryz: PO;22:08 Follow up: Response: No adverse reaction tp204/2104:38 Drug: B52 IM - (LORazepam 2 mg, diphenhydrAMINE 50 mg, Haloperidol bt6Ualowvh 5 mg) Route: IM; Site: right vastus lateralis;05:25 Follow up: Response: No adverse reaction; No change in condition tp208:18 Drug: Ondansetron 8 mg [ondansetron HCl 4 mg tablet (2 tabs)] Route: tlmPO;12:41 Not Given (Patient Refused): Propranolol 10 mg PO once wd112:41 Not Given (Patient Refused): cetirizine 10 mg PO once wd112:41 Not Given (Patient Refused): SEROquel 50 mg PO once wd119:50 Drug: LORazepam 2 mg [lorazepam 2 mg/mL injection solution (1 mL)] jw5{Note: given for severe anxiety.} Route: IM; Site: right deltoid;20:24 Follow up: Response: No adverse reaction; No change in condition jw519:50 Drug: diphenhydrAMINE 50 mg [diphenhydramine 50 mg/mL injection ce1lejahail (1 mL)] {Note: given for severe anxiety.} Route: IM; Site:right deltoid;20:25 Follow up: Response: No adverse reaction; No change in condition jw520:41 Drug: LORazepam 4 mg [lorazepam 2 mg/mL injection solution (2 mL)] jw5{Note: given for severe anxiety.} Route: IM; Site: left deltoid;21:14 Follow up: Response: No adverse reaction; Anxiety decreased jw504/2200:32 CANCELLED (Duplicate Order): LORazepam 4 mg IM once dk200:40 Drug: Geodon 20 mg [ziprasidone 20 mg/mL (final concentration) of9vlhrnstcrpjsh solution (1 mL)] Route: IM; Site: right deltoid;01:10 Follow up: Response: No adverse reaction; Anxiety decreased jw508:59 Not Given (Patient Refused): cet irizine 10 mg PO once klp08:59 Not Given (Patient Refused): SEROquel 50 mg PO once klp09:00 Not Given (Patient Refused): chlorproMAZINE 200 mg PO once klp09:00 Not Given (Patient Refused): Propranolol 10 mg PO once klpOutcome:08:52 Decision to Hospitalize by Provider. se10:30 Disposition: Admitted to Psych accompanied by dena, with chart, Other klpand [employer] officers x 210:30 Condition: stable.10:30 Instructed on need for admit.10:30 Discharge Assessment: Patient awake, alert and oriented x 3. Nocognitive and/or functional deficits noted. Patient verbalizedunderstanding of disposition instructions. Patient angry andinitially uncooperative Patient has no functional deficits.10:31 Patient left the ED. klpSignatures:Елена Hugo, RN Magaly Groves RN RN tlmElliott, Suzanne, MD MD seDow, Wendy, RN RN wd1Zakia Cortez, RN Zakia Moreno PSA PSA kfHowland, Todd, MD MD bm2KtzoxFortunato Mark RN RN zu9HfwngfBreonna Marie RN RN tp2Usha Adams8Anoop Bowman MD mx4Kmdwftoejma: (The following items were deleted from the chart)10/2101:44 01:37 Narrative Pt was using her sheet and pillow case to wrap around sm8her neck. Blankets and pillow case were removed. Pt was spoken toabout this which she laughed. Pt threatened to leave but wasredirected. Pt is currently sitting in the chair in her room watchingTV. Sitter is present. Safety is maintained. sm803:54 10/29 21:03 Patient reports history of anxiety, Bipolar Disorder, nv7Iwxofjsmcl, suicide attempt: multiple by overdose Mental HealthAdmissions: multiple admissions. Last was at [facility] 10/26/20 and wasdischarged today Current Outpati ent Mental Health Services: Therapist/ Agency: [facility]. Living Environment: Family / Home Support:poor The patient currently lives with his / her significant other,Wilmar Loza. The patient is single. Detox / Rehab Admissions: None.Current Outpt Alcohol or Substance Abuse Services: None. sm804/2104:55 04:48 Reassessment: MHW and PSA reported that patient had been tp2"digging and scratching herself" and despite constant intervention,MHW had to manually hold wrists down to prevent her from doing this.She does have bilateral superficial scratches to her wrists w/obleeding. B52 verbally ordered and given. tp223:55 22:48 Reassessment: Patient appears in no apparent distress at this sc6eadm. jw5 Name Value Range Interpretation Code Description Data Stephanie rce(s) Supporting Document(s) ID Date Data Source [id number] 10/28/2020 08:29:00 PM [place]T [place] [address]PATIENT NAME: YARELI HATCH#: [id number] PHYSICIAN: BROOKLYN ONEILL MDACCOUNT #: [id number] ADM. DATE: 10/26/20PATIENT : 00 DISCH. DATE: [50}DISCHARGE SUMMARYMHU discharge planNicotine Replacement TherapySmoking Status Never smokerPrescribed at discharge Rx not offered at DCReason not offered not a smokerAlcohol/Drug DisorderAlcohol or Drug Disorder neither disorderPersonal Care InstructionsDischarge Activity: Resume normal activityDi scharge diet: RegulariStopEND ENDDICT: 10/28/202028 Electronically SignedTRANS:10/28/202028 BROOKLYN ONEILL MDTRANS BY:DATE SIGNED:10/28/20TIME SIGNED: 2030REPORT COPY TO: Name Value Range Interpretation Code Description Data Stephanie rce(s) Supporting Document(s) ID Date Data Source [id number] 10/28/2020 06:30:00 PM EDT [place] [id number] HEALTH PROGRESS NOTEPATIENT NAME: YARELI HATCH PHYSICIAN: BROOKLYN ONEILL MDAUTHOR: Mai SMITH,P.ADM. DATE: 10/26/20 MR#: [id number] NOTE DATE: 10/28/20 RM#: [id number] TIME: 183 , , female patient.CC/Hx Present IllnessPt states, "I was and I am feeling suicidal since last week". [facility] and [facility]'t [facility] her so she came to [facility] with a friend and walked herself to the ED for an evaluation.Events Since Last EntryPatient was seen today to assess her improvement. The patient denies any SI/HI.She talked about her friend in [place] with whom she wants to live withuntil residence in [facility] opens .Portions of this section were scribed by Shell Ariza on 10/28/20 at 1832ObjectiveVital SignsVital Signs-LastResult Date TimePulse Ox 98 10/28 1140B/P 122/83 10/28 1140Temp 97.5 10/28 1140Pulse 65 10/28 1140Resp 14 10/28 1140Current MedicationsMiscellaneous Read OWLA27G NAQuetiapine Fumarate (Seroquel) 25 MG 2000 POChlorpromazine HCl (Chlorpromazine HCl) 100 MG BIDPRN PRN PONaproxen (Naprosyn) 500 MG BIDPRN PRN POQuetiapine Fumarate (Seroquel XR) 50 MG BID POLoratadine (Claritin) 10 MG DAILY POPropranolol HCl (Inderal) 10 MG BID POAcetaminophen (Tylenol) 650 MG Q4HPRN PRN POAcetaminophen (Tylenol) 650 MG Q4HPRN PRN POAl Hydrox/Mg Hydrox/Simethicone (Maalox) 15 ML QIDPRN PRN POHydroxyzine (Atarax) 50 MG Q4HPRN PRN POMagnesium Hydroxide (Mom) 10 ML QHSPRN PRN POTrazodone HCl (Desyrel) 50 MG QHSPRN PRN POExaminationMusculoskeletalMuscle Strength & Tone normalGait normalStation normalAdditional notesPatient was seen today. She is cooperative. She answered all my questions.Showed some insight. She denied any suicidal ideations or homicidal ideations.No acute psychotic symptoms. No evidence of hallucinations or delusionalthinking. Judgment and insight fair. She is oriented to time place and person.Portions of this section were scribed by Shell Ariza on 10/28/20 at 1830Assessment/PlanDiagnosis1. Major depressive disorderStatus Acute2. Suicide attemptStatus Acute3. Bipolar affective disorder4. Borderline personality disorder5. Suicidal ideationCoordination of care provided with nursing staff, treatment team, social work,physician's, familyRisk/benefits discussed expected therapeutic effe, side effectsAdditional NotesPlan:Patient will be discharged tomorrow with services in [place].Portions of this section were scribed by Shell Ariza on 10/28/20 at 1830DATE SIGNED: 10/28/20 Electronically SignedTIME SIGNED: 1831 BROOKLYN ONEILL MD Name Value Range Interpretation Code Description Data Stephanie rce(s) Supporting Document(s) ID Date Data Source [id number] 10/28/2020 05:10:00 PM EDT [address] DISCHARGE SUMMARYPATIENT NAME: YARELI HATCH MR#: [id number] PHYSICIAN: BROOKLYN ONEILL MDAUTHOR: Mai SMITH,P. DATE: 10/26/20 #: [id number] DATE:CsopqcbQcvllogxmztkrb64-ssvb-bym, , female patient.Chief ComplaintPt states, "I was and I am feeling suicidal since last week". [facility] and [facility]'t admit her so she came to [place] tosta with a friend and walked herself to the ED for an evaluation.Reason for AdmissionIncreased depression and feeling suicidal. SIB, by scratching forearms with apencil when in-patient at [facility] in Aug.History of Presenting IllnessYareli is friendly, polite and cooperative today. Reports she feels saferwhen she is here in-patient. Has not been taking medications since her d/c from in October. She didn't f/u with her out-patient services and didn'tpick up her prescribed meds from the pharmacy. She reports she notices nodifference on or off her medications.Portions of this section were scribed by Shell Ariza on 10/28/20 at 1710Pa Psych/Medical HistoryPsychiatric HistoryLong history with diagnosis of bipolar disorder, Schizoaffective disorder, andcluster B personality disorder. The patient has a history of overdosing andhistory of poor impulse control with aggression. The patient has the criteriafor borderline personality.Medical HistoryDeniesDrugs/Alcohol/Tobacco HistoryDeniesHome MedicationsSee Home Med ication ListAllergiesCoded Allergies:haloperidol (From HALDOL) (06/15/20)risperidone (08/04/19)Family HistoryFamily history of mental health and substance use.Social HistoryHas been staying with a friend in [place] that she met while in the [facility].Abuse HistoryAdmits but doesn't discuss today.Legal HistoryCharged for disorderly conduct and harrassement but hasn't been to court yet.This involved staff during a restraint at [facility].Portions of this section were scribed by Shell Ariza on 10/28/20 at 1710[facility] and then today. She talked about her multiple overdosesand that [facility] did not want to hospitalize her. So, [facility] and showed up to our ER. Subsequently, admitted here. It also appears shehas a friend whom she met while she was here. I don t think her insight andjudgment has improved. She has the tendency for behavioral disturbances as wellas acting out due to her personality disorder. This hospitalization will focuson stabilizing her, so that she can be discharged to appropriate outpatientcommunity resources.Portions of this section were scribed by Shell Ariza on 10/28/20 at 1803Patient's Discharge ConditionVital SignsVital Signs-LastResult Date TimePulse Ox 98 10/28 1140B/P 122/83 10/28 1140Temp 97.5 10/28 1140Pulse 65 10/28 1140Resp 14 10/28 1140Patient's Discharge ConditionDischarge Date 10/29/20Discharge Conditon stableDischarge DispositionTo her home.ExaminationMusculoskeletalMuscle Strength & Tone normalGait normalStation normalAdditional NotesPatient was seen today. She is cooperative. She answered all my questions.Showed some insight. She denied any suicidal ideations or homicidal ideations.No acute psychotic symptoms. No evidence of hallucinations or delusionalthinking. Judgment and insight fair. She is oriented to time place and person.Portions of this section were scribed by Shell Ariza on 10/28/20 at 1803Patient/Family InstructionsAdditonal NotesDischarge diagnosis:Bipolar disorderCluster B personality disorderBorderline personality disorder.Plan:Yareli is very well known to us. She has a long history of dependency ofinstitutions and mostly behavioral disturbances, lot of acting out and creatingattention seeking drama to focus on herself. She has a history of not willingto look at herself and her behaviors or willingness to change. I don t believekeeping her here more than a few days will be any therapeutic for her. Shestates she has a friend in [place] and then wait until residence [facility].Portions of this section were scribed by Shell Ariza on 10/28/20 at 1803DATE SIGNED: 10/28/20 Electronically SignedTIME SIGNED: 1808 BROOKLYN ONEILL MD Name Value Range Interpretation Code Description Data Stephanie rce(s) Supporting Document(s) ID Date Data Source [id number] 10/27/2020 10:23:00 AM EDT [address] PSYCHIATRIC ASSESSMENTPATIENT NAME: YARELI HATCH MR#: [id number] PHYSICIAN: BROOKLYN ONEILL MDAUTHOR: Frantz Win DATE: 10/26/20 RM#: [id number], , female patient.Chief ComplaintPt states, "I was and I am feeling suicidal since last week". Reports she went[facility] last week and they didn't admit her so she came to [place] tosta with a friend and walked herself to the ED for an evaluation.Reason for AdmissionIncreased depression and feeling suicidal. SIB, by scratching forearms with apencil when in-patient at [facility] in Aug.History of Presenting IllnessYareli is friendly, polite and cooperative today. Reports she feels saferwhen she is here in-patient. [facility] She didn't f/u with her out-patient services and didn'tpick up her prescribed meds from the pharmacy. She reports she notices nodifference on or off her medications.Past Psych/Medical HistoryPsychiatric HistorySignificant psych historyMedical HistoryDeniesDrugs/Alcohol/Tobacco HistoryDeniesHome MedicationsSee Home Medication ListAllergiesCoded Allergies:haloperidol (From HALDOL) (06/15/20)risperidone (08/04/19)Family HistoryFamily history of mental health and substance use.Social HistoryHas been staying with a friend in [place] that she met while in the [facility].Abuse HistoryAdmits but doesn't discuss today.Legal HistoryCharged for disorderly conduct and harrassement but hasn't been to court yet.This involved staff during a restraint at [facility].ExamVital SignsVital Signs-LastResult Date TimePulse Ox 100 10/27 1017B/P 133/82 10/27 1017Temp 97.7 10/27 1017Pulse 90 10/27 1017Resp 17 10/27 1017ExaminationMusculoskeletalMuscle Strength & Tone normalGait normalStation normalMental Status ExaminationSpeech normalThought Process logicalThought Content normalAssociations tangentialAbnormal or Psychotic Thoughts suicidalPatient's Judgement poorInsight fairReality Testing intactDecision Making Capacity compromisedMental StatusOrientation time, place, person, name, situationRecent & Remote Memory intactConcentration impaired ("All over the place")Fund of Knowledge: awareness of current events, past history, vocabularyMood calmAffect appropriateData ReviewLaboratory DataRecent LabsTest Result Date TimeChemistrySodium (136 - 147 mmol/L) 143 10/26 0723Potassium (3.5 - 5.1 mmol/L) 3.6 10/26 0723Chloride (99 - 110 mmol/L) 111 H 10/26 0723Serum Bicarbonate (20 - 33 mmol/L) 23 10/26 0723Anion Gap (10.0 - 20.0) 12.6 10/26 0723BUN (7 - 23 mg/dL) 19 10/26 0723Creatinine (0.500 - 1.300 mg/dL) 0.729 10/26 0723Estimated GFR/1.73 m2 (mL/min) > 60 10/26 0723Glucose (70 - 110 mg/dL) 106 10/26 0723Calcium (8.3 - 10.7 mg/dL) 8.9 10/26 0723Total Bilirubin (0.1 - 1.1 mg/dL) 0.3 10/26 0723AST (6 - 38 U/L) 15 10/26 0723ALT (6 - 54 U/L) 41 10/26 0723Alkaline Phosphatase (45 - 117 U/L) 112 10/26 0723Total Protein (6.0 - 7.8 g/dL) 7.4 10/26 0723Albumin (3.5 - 5.0 g/dL) 4.0 10/26 0723Globulin (2.3 - 3.5 g/dL) 3.4 10/26 0723Albumin/Globulin Ratio (1.0 - 2.5) 1.2 10/26 0723HematologyWBC (4.0 - 10.5 x10E3/uL) 8.10 10/26 0732RBC (4.20 - 5.40 x10E6/uL) 4.37 10/26 0732Hgb (12.0 - 16.0 g/dL) 13.2 10/26 0732Hct (37.0 - 47.0 %) 39.2 10/26 0732MCV (81.0 - 99.0 fL) 89.7 10/26 0732MCH (27.0 - 31.0 pg) 30.2 10/26 0732MCHC (32.7 - 35.6 g/dL) 33.7 10/26 0732RDW (11.5 - 14.0 %) 11.9 10/26 0732Plt Count (150 - 450 x10E3/uL) 204 10/26 0732MPV (6.9 - 9.5 fl) 9.6 H 10/26 0732Immature Gran % (Auto) (0.1 - 2.0 %) 0.5 10/26 0732Neut % (Auto) (34 - 64 %) 67.3 H 10/26 0732Lymph % (Auto) (25 - 45 %) 23.3 L 10/26 0732Mono % (Auto) (1.7 - 10.6 %) 7.3 10/26 0732Eos % (Auto) (0.4 - 7.0 %) 1.5 10/26 0732Baso % (Auto) (0.1 - 2.0 %) 0.1 10/26 0732Abs Immat Gran (auto) (0.0 - 0.1 x10E3/uL) 0.04 10/26 0732Absolute Neuts (auto) (1.2 - 7.6 x10E3/uL) 5.45 10/26 0732Absolute Lymphs (auto) (1.0 - 3.5 x10E3/uL) 1.89 10/26 0732Absolute Monos (auto) (0.1 - 1.0 x10E3/uL) 0.59 10/26 0732Absolute Eos (auto) (0.1 - 0.7 x10E3/uL) 0.12 10/26 0732Absolute Basos (auto) (0.0 - 0.1 x10E3/uL) 0.01 10/26 0732Nucleated RBC % (auto) (0 %) 0 10/26 0732SerologyCOVID-19 (CORDELL) (NEGATIVE) NEGATIVE 10/26 1040ToxicologySalicylates (0.0 - 20.0 mg/dL) < 1.7 10/26 0723Opiates Screen (NEGATIVE) NEG 10/26 0708Methadone Screen (NEGATIVE) NEG 10/26 0708Acetaminophen (0 - 30 ug/mL) < 2.0 10/26 722Barbiturate Screen (NEGATIVE) NEG 10/26 0708Phencyclidine Screen (NEGATIVE) NEG 10/26 0708Amphetamines Screen (NEGATIVE) NEG 10/26 0708Benzodiazepines (NEGATIVE) NEG 10/26 0708Cocaine Screen (NEGATIVE) NEG 10/26 0708Cannabinoids (NEGATIVE) NEG 10/26 0708Ethyl Alcohol (NONE DETECTED g/dL) 0.004 H 10/26 0723UrinesUrine Color Yellow 10/26 07Urine Appearance Cloudy 10/26 07Urine pH (5.0 - 8.0) 6.0 10/26 07Ur Specific [place] (1.010 - 1.025) 1.027 H 10/26 07Urine Protein (Negative) Negative 10/26 07Urine Ketones (NEGATIVE) Negative 10/26 07Urine Blood (NEGATIVE) Negative 10/26 07Urine Nitrite (Negative) Negative 10/26 07Ur Bilirubin Confirm (NEGATIVE) Negative 10/26 07Urine Urobilinogen (0.2 - 1.0 mg/dL) 0.2 10/27 707Urine Leukocytes (Negative) Negative 10/26 07Urine Glucose (NEGATIVE) Negative 10/27 707Urine HCG, Qual (Negative) Negative 10/27 707Assessment/PlanDiagnosis1. Major depressive disorderStatus Acute2. Suicide attemptStatus Acute3. Bipolar affective disorder4. Borderline personality disorder5. Suicidal ideationCoordination of care provided with nursing staff, treatment team, social work,physician's, familyRisk/benefits discussed expected therapeutic effe, side effectsJustification for continued stay danger to self/othersDATE SIGNED: 10/27/20 Electronically SignedTIME SIGNED: Alexandria GIORDANO Name Value Range Interpretation Code Description Data Stephanie rce(s) Supporting Document(s) ID Date Data Source [id number] 10/26/2020 05:21:00 PM EDT [address] [id number] AND PHYSICALPATIENT NAME: YARELI HATCH MR#: [id number] PHYSICIAN: BROOKLYN ONEILL MDAUTHOR: Eliana Ruelas DO DATE: 10/26/20 RM#: [id number] & PHYSICAL DATE: 10/26/20 : 00EVALUATION TIME: 1731HistoryChief Complaint/Admit ReasonSuicidal ideationHistory of Presenting IllnessPatient is a 20 years old [facility]. According to the patient, patient doesnot have any medical conditions appear patient is not on any medication athome. Patient has a suicidal ideation of overdosing medication. Howeverpatient is not sure what medication she wanted to use. Patient denies any acutecomplaints.Past Medical/Surgical HistoryPast Medical/Surgical HistoryMedical ProblemsAbdominal painAllergic rhinitisBipolar affective disorderBipolar disorderBipolar disorder, manicBorderline personality disorderMajor depressive disorder (Acute)Right ankle painSuicidal ideationSuicide attempt (Acute)URI (upper respiratory infection)Reconciled Home Med ListSee Reconciled Home Medication ListAllergiesCoded Allergies:haloperidol (From HALDOL) (06/15/20)risperidone (08/04/19)Family history Patient was Adopted. Patient does not know much about herbiological parents.Social History no tobacco use, no alcohol use, no recreational drug useReview of SystemsConstitutionalDenies: Pain, Fever, Chills, Generalized weakness.SkinReports: laceration (Superficial. B distal UE. ).RespiratoryDenies: dyspnea, non-productive cough, wheezing.CardiovascularDenies: chest pain, edema, palpitations.GenitorurinaryDenies: dysuria, flank pain, frequency, urgency.MusculoskeletalDenies: extremity pain, extremity swelling, joint pain, joint swelling.EndocrineDenies: diabetic.NeurologicalDenies: dizziness, focal weakness, gait problem, headache, numbness.PsychReports: stress, suicidal ideation.ExamVital SignsVital Signs-24 HRS04/17 04/267637 1245Temp 97.8Pulse 116Resp 22B/P 131/82 134/79B/P MeanPulse Ox 96O2 DeliveryO2 Flow VhzhGhB7Nemnglri ExaminationGeneral Appearance no acute distress, afebrile, alert, awake, conversant, facesymmetricalHead atraumatic, normocephalicNeck no swelling, suppleCardiovascular regular rate, no murmur, normal capillary refill, Positive S1and L9Lmqelzafheu clear to auscultation, no distress, aerating well, symmetricexpansionAbdomen soft, non-tender, normal bowel sounds, no guarding, no reboundUrinary no bladder distention, no flank painExtremities no cyanosis, no edemaMuscoskeletal full range of motion, normal inspection, no veronica arthritis, nojoint erythemaNeurological alert, normal cerebellar functio, normal gait, normal speech, nomotor deficits, no sensory deficits, CNII-XXII grossly intactSkin AssessmentSkin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 sent to different [facility] such [facility], [facility] as well. Later on patient was accepted for [facility] which patientagreed and willing to go for that as well. Patient denied having any suicidal,homicidal ideation lately, expressing and maintaining safe behavior and she wasalso open for her discharge plan as well. She reported being excited aboutbeing discharged from here after long time, she also stated that she likes tolisten to music outside, we have educated about her diet and recent weight gainbut patient stated that she would like to eat some fast food outside and alsolike to drink some energy drinks as well. She also stated that she is alsolooking forward to fill out some paperwork at [facility] as well. She alsoappreciated the service that she received here, also open to come back into thehospital if needed if she is not feeling safe outside. Patient willing to seetherapist and psychiatrist as well as primary care physician outside as well.We no longer have criteria for inpatient hospitalization at this point andconsidering discharging patient today. Patient denied having any substancesissues at this point.Mental status examination: Patient was alert, oriented with time place person,cooperative, slightly anxious, her speech remained soft, stable gait, her moodis slight anxious, affect was slightly constricted but mood loosely moodcongruent, thought process was mostly organized, thought content denied havingany suicidal, homicidal ideations, denied having any auditory visualhallucinations, denied delusions, attention concentration limited, insight andjudgment appeared improvedDiagnosis: Bipolar type I disorder, rule out borderline personality disorder,poor impulse control disorderPatient's Discharge ConditionVital SignsVital Signs-LastResult Date TimePulse Ox 98 05/16 1231B/P 109/70 05/16 1231Temp 97.1 05/16 1231Pulse 68 05/16 1231Resp 16 05/16 1231ExaminationMusculoskeletalGait normalStation normalPatient/Family InstructionsPrescriptionsStop taking the following medications:ARIPIPRAZOLE* (Aripiprazole*) 5MG TABLET5 MILLIGRAM Orally DAILYStart taking the following new medications:Loratadine* (Claritin*) 10 MG [id number] MILLIGRAM Orally DAILYQty = 14Refills = 1TOPIRAMATE (TOPAMAX) 25 MG [id number] MILLIGRAM Orally TWICE DAILYQty = 20Refills = 1Fluoxetine* (Prozac*) 20 MG GDYJYUT00 MILLIGRAM Orally DAILYQty = 20Refills = 1HydrOXYzine (Atarax*) 50 MG CMEWCRD86 MILLIGRAM Orally TWICE DAILY as needed for AnxietyQty = 20Refills = 1ARIPIPRAZOLE (ABILIFY MAINTENA) 400 MG SUSER.SOZV273 MILLIGRAM Intramuscularly F28IVkg = 1No RefillsInstruction s:Last IM injection received on May 03, 2020Discharge Activity: As toleratedDischarge diet: Low Fat/Low CholesterolFollow-upFollow up with your Primary care physicianFollow-up with therapist and psychiatrist as recommendedAlso recommended outpatient chemical dependencyReferralsOrdered ReferralsOphthalmology 07/23/20[facility] ([phone])located at [address] in [place] July 23 at 11:30 am.Internal Medicine 06/03/20[facility][phone][facility] located at [address] [place] [address] in [place] on June 03 at 2:00 pm with Liliana Nunez.[facility] [place] [address] In person appointment at [facility] ([phone]) locatedat [address] in [place] on May 23 at 2:00 pm with Marshal will need to attend thisappointment in order to receive herAbilify Maintenna injection on 05/31.[facility] [place] [address] In person appointment at [facility] ([phone])located at [address] in [place] onMay 29 at 11:00 amwith Ruth. Downs will need to attendthis appointment in order to receive herAbilify Maintenna injection on 05/31.DATE SIGNED: 05/16/20 Electronically SignedTIME SIGNED: 1326 BOGDAN ALMAGUER MD Name Value Range Interpretation Code Description Data Stephanie rce(s) Supporting Document(s) ID Date Data Source [id number] 05/16/2020 09:41:00 AM EST Joe heaton [facility] [place] [address] [id number] NAME: DAMARISYARELI#: [id number] PHYSICIAN: BOGDAN ALMAGUER MDACOXHEALTH #: [id number] ADM. DATE: 02/15/20PATIENT : 00 DISCH. DATE: [50}DISCHARGE SUMMARYMHU discharge planNicotine Replacement TherapySmoking Status Never smokerPrescribed at discharge Rx not offered at [facility]lcohol/Drug DisorderAlcohol or Drug Disorder counseling prescribedPersonal Care InstructionsDischarge Activity: As toleratedDischarge diet: Low Fat/Low CholesterolFollow Up CareFollow Up:Follow up with your Primary care physicianFollow-up with therapist and psychiatrist as recommendedAlso recommended outpatient chemical dependencyPriority ItemsUrgent/Important items t hat need to be addressed at primary care follow-upappointmentDischarge InformationDISCHARGE INFORMATION* Thank you for [facility] and allowing us toserve you* Our Goal is to provide the highest quality of care.* This discharge information is to help you better understand your diagnosisand medication* Avoid taking vmlt-uch-wgqnnqg medicines unless approved by your physician.* Take your medications as prescribed. DO NOT stop any medications unlessapproved first* Weigh yourself daily. Report any gain of 5 lbs in a week* 24 Hour Crisis HOTLINE available: Call Reachout at * Chem. Dependency: Walk in Clinics [place] ([phone]) and [place] ([phone]) anytime Wednesday thru Wednesday 8 to 10am. [place] ([phone]) anytimeMond thru Wednesday 8 to 10am. [place] ([phone]) Wednesday or Wednesday from 8to 10am (Bring $30 to First Appt) SMOKIN G CESSATION* Smoking is dangerous to your health. It delays the healing process, andworks against your medications. Not smoking will improve your health* Our hospital participates with the Opt-to-Quit program. You will be contactedafter discharge by the [facility] Smoker's Quitline for support with tobaccocessation. You have the option once contacted to refuse this service.* You can also go online to www.[employer]. Free nicotine replacementsare available ___Attention* You should contact your follow up Physician as it is important that you lethim or her check you and report any new or remaining problems. If yourcondition worsens, follow up with your provider or visit our EmergencyDepartment. If you received pain medication, anxiety medications, musclerelaxants, or any medication that causes drowsiness, you cannot operatemachinery, power tools, or drive.Safe ActSafe Act Completed NoiStopiStop completed NoEND ENDDICT: 05/16/20940 Electronically SignedTRANS:05/16/20940 BOGDAN ALMAGUER MDTRANS BY:DATE SIGNED:05/16/20TIME SIGNED: 941REPORT COPY TO: Name Value Range Interpretation Code Description Data Stephanie rce(s) Supporting Document(s) ID Date Data Source [id number] 05/15/2020 01:17:[address] HEALTH PROGRESS NOTEPATIENT NAME: YARELI HATCH [facility] PHYSICIAN: BOGDAN ALMAGUER MDAUTHOR: Colleen SMITH,DhruvADM. DATE: 02/15/20 MR#: [id number] NOTE DATE: 05/15/20 RM#: [id number] TIME: 1319 is 19-year-old female, currently single, lives in a motel,past psych history of bipolar disorderCC/Hx Present IllnessThe patient was referred for evaluation because pt having suicidal ideations.Events Since Last EntryPatient reporting having better mood, she was also stating that she wassomewhat upset regarding another patient calling her that she was stinking andthat has hurt her feeling as well. Patient was otherwise stating that she hasbeen optimistic about her discharge plan, denied having any suicidal, homicidalideations and she was also focused on drinking some energy drink outside thatshe has been craving.Mental status examination: Patient was alert, oriented with time place person,cooperative, appears slightly pressured speech, her mood is okay, affect was smostly mood congruent, thought process was mostly organized somewhatcircumstantial at times, thought content denied having any suicidal, homicidalideations, denied having any auditory visual hallucinations, attentionconcentration limited, insight and judgment appeared improvedPlan: Consider to continue current treatment plan, patient shows improvement inher mood and behavior at this point possible working on safe discharge plan onFriday.ObjectiveVital SignsVital Signs-LastResult Date TimePulse Ox 98 05/15 1148B/P 119/57 05/15 1148Temp 97.7 05/15 1148Pulse 65 05/15 1148Resp 16 05/15 1148Current MedicationsAcetaminophen (Tylenol) 650 MG Q4HPRN PRN POAl Hydrox/Mg Hydrox/Simethicone (Maalox) 30 ML Q4HPRN PRN POHydroxyzine (Atarax) 50 MG Q4HPRN PRN POMagnesium Hydroxide (Mom) 10 ML QHSPRN PRN POTrazodone HCl (Desyrel) 50 MG QHSPRN PRN POLoratadine (Claritin) 10 MG DAILY POTopiramate (Topamax) 50 MG BID POIbuprofen (Motrin) 600 MG Q6HPRN PRN POFluoxetine HCl (Prozac) 20 MG DAILY POLoperamide HCl (Imodium) 2 MG Q2HPRN PRN POSimethicone (Mylicon) 120 MG QIDPRN PRN POExaminationMusculoskeletalGait normalStation normalResultsResults Ordered/ReviewedLab Tests reviewedAssessment/PlanDiagnosis1. Major depressive disorderStatus Acute2. Bipolar affective disorder3. Borderline personality disorderCoordination of care provided with nursing staff, treatment team, social work,physician's, familyRisk/benefits discussed side effectsJustification for continued stay danger to self/othersDATE SIGNED: 05/15/20 Electronically SignedTIME SIGNED: 1319 BOGDAN ALMAGUER MD Name Value Range Interpretation Code Description Data Stephanie rce(s) Supporting Document(s) ID Date Data Source [id number] 05/14/2020 11:49:[address] HEALTH PROGRESS NOTEPATIENT NAME: YARELI HATCH PHYSICIAN: BOGDAN ALMAGUER MDAUTHOR: Colleen SMITH,DhruvADM. DATE: 02/15/20 MR#: [id number] NOTE DATE: 05/14/20 RM#: [id number] TIME: 1151 is 19-year-old female, currently single, lives in a motel,past psych history of bipolar disorderCC/Hx Present IllnessThe patient was referred for evaluation because pt having suicidal ideations.Events Since Last EntryPatient reporting feeling somewhat better, she is mostly focused on herdischarge plan and she is about to be discharged this prior to going to [facility]. Patient denied having any suicidal, homicidal ideation, discussed withthe patient about maintaining her safety which patient agreed and alsodiscussed about healthy diet as well as exercise as well.Mental status examination: Patient was alert, oriented with a place, person,appeared less anxious, less distracted, somewhat excited, her speech remainedslightly pressured, mood was better, affect was constricted, thought processwas mostly organized, thought content denied having any suicidal, homicidalideations, denied having any auditory visual hallucinations, denied delusions,attention concentration fair, insight and judgment appeared limited/improvedPlan: Consider to continue current treatment plan, monitoring for patientsafety, discussed with the patient about safe discharge plan and possibledischarge soon.ObjectiveVital SignsVital Signs- LastResult Date TimeTemp 96.9 05/14 0634Pulse Ox 98 05/13 1254B/P 147/91 05/13 1254Pulse 77 05/13 1254Resp 14 05/13 1254Current MedicationsAcetaminophen (Tylenol) 650 MG Q4HPRN PRN POAl Hydrox/Mg Hydrox/Simethicone (Maalox) 30 ML Q4HPRN PRN POHydroxyzine (Atarax) 50 MG Q4HPRN PRN POMagnesium Hydroxide (Mom) 10 ML QHSPRN PRN POTrazodone HCl (Desyrel) 50 MG QHSPRN PRN POLoratadine (Claritin) 10 MG DAILY POTopiramate (Topamax) 50 MG BID POIbuprofen (Motrin) 600 MG Q6HPRN PRN POFluoxetine HCl (Prozac) 20 MG DAILY POLoperamide HCl (Imodium) 2 MG Q2HPRN PRN POSimethicone (Mylicon) 120 MG QIDPRN PRN POExaminationMusculoskeletalGait normalStation normalResultsResults Ordered/ReviewedLab Tests reviewedAssessment/PlanDiagnosis1. Major depressive disorderStatus Acute2. Bipolar affective disorder3. Borderline personality disorderCoordination of care provided with nursing staff, treatment team, social work,physician's, familyRisk/benefits discussed side effectsJustification for continued stay danger to self/othersDATE SIGNED: 05/14/20 Electronically SignedTIME SIGNED: 1151 BOGDAN ALMAGUER MD Name Value Range Interpretation Code Description Data Stephanie rce(s) Supporting Document(s) ID Date Data Source [id number] 05/13/2020 01:19:[address] HEALTH PROGRESS NOTEPATIENT NAME: YARELI HATCH [facility] PH[facility]ICIAN: BOGDAN ALMAGUER MDAUTHOR: Colleen SMITH,DhruvADM. DATE: 02/15/20 MR#: [id number] NOTE DATE: 05/13/20 RM#: [id number] TIME: 1322 is 19-year-old female, currently single, lives in a motel,past psych history of bipolar disorderCC/Hx Present IllnessThe patient was referred for evaluation because pt having suicidal ideations.Events Since Last EntryPatient reporting feeling okay initially but later on, patient was educatedabout recent weight gain as well as educated about diet changes and cuttingdown double portion diet due to health concerns, patient was somewhat upset andlater on getting irritable as well. Patient denied having any suicidal,homicidal ideations, denied having any psychotic symptoms as well.Mental status exami nation: Patient was alert, oriented with a place, person,appeared somewhat irritable, pressured rapid speech, affect was somewhatelevated, thought process was somewhat circumstantial, thought content deniedhaving any suicidal, homicidal ideations, denied having any auditory visualhallucinations, denied delusions, attention concentration limited, insight andjudgment appear limitedPlan: Consider to continue current treatment plan, no medication changes,discussed with the patient about healthy diet as well as exercise and relatedhealth benefits as well. Discussed with the patient about working on sa fedischarge plan which patient agreed at this point, and also patient expressedto maintain her safety on the unit as well.ObjectiveVital SignsVital Signs-LastResult Date TimePulse Ox 98 05/13 1254B/P 147/91 05/13 1254Temp 97.5 05/13 1254Pulse 77 05/13 1254Resp 14 05/13 1254Current MedicationsLoratadine (Claritin) 10 MG DAILY POTopiramate (Topamax) 50 MG BID POIbuprofen (Motrin) 600 MG Q6HPRN PRN POFluoxetine HCl (Prozac) 20 MG DAILY POLoperamide HCl (Imodium) 2 MG Q2HPRN PRN POSimethicone (Mylicon) 120 MG QIDPRN PRN POAcetami nophen (Tylenol) 650 MG Q4HPRN PRN POAcetaminophen (Tylenol) 650 MG Q4HPRN PRN POAl Hydrox/Mg Hydrox/Simethicone (Maalox) 15 ML QIDPRN PRN POHydroxyzine (Atarax) 50 MG Q4HPRN PRN POMagnesium Hydroxide (Mom) 10 ML QHSPRN PRN POTrazodone HCl (Desyrel) 50 MG QHSPRN PRN POExaminationMusculoskeletalGait normalStation normalResultsLaboratory DataRecent Labs-24 hours11/[id number]-91 (CORDELL) PendingResults Ordered/ReviewedLab Tests reviewedAssessment/PlanDiagnosis1. Major depressive disorderStatus Acute2. Bipolar affective disorder3. Borderline personality disor derCoordination of care provided with nursing staff, treatment team, social work,physician's, familyRisk/benefits discussed side effectsJustification for continued stay danger to self/othersDATE SIGNED: 05/13/20 Electronically SignedTIME SIGNED: 1322 BOGDAN ALMAGUER MD Name Value Range Interpretation Code Description Data Stephanie rce(s) Supporting Document(s) ID Date Data Source [id number] 05/13/2020 11:14:00 AM EST [facility] Name Value Range Interpretation Code Description Data Stephanie rce(s) Supporting Document(s) SARS coronavirus 2 RNA [facility] This lab was ordered by [place] [facility] [facility] and reported by [facility]. ID Date Data Source [id number] 05/14/2020 04:07:00 PM EST [facility] [place] Performed at: RN - [facility] [address] [id number] Director: Samira Cortez MD, Phone: [phone] Name Value Range Interpretation Code Description Data Stephanie rce(s) Supporting Document(s) SARS-CoV-2, [facility] Not Detected Not Detected [facility] This nucleic acid amplification test was developed and itsperformance characteristics determined by [facility]. Nucleic acid amplification tests include PCRand TMA. This test has not been FDA cleared or approved.This test has been authorized by FDA under an Emergency UseAuthorization (EUA). This test is only authorized forthe duration of time the declaration that circumstancesexist justifying the authorization of the emergency use ofin vitro diagnostic tests for detection of SARS-CoV-2 virusand/or diagnosis of COVID-19 infection under cuwbqdl580(b)(1) of the Act, 21 U.S.C. 360bbb-3(b) (1), unless theauthorization is terminated or revoked sooner.When diagnostic testing is negative, the possibility of afalse negative result should be considered in the contextof a patient's recent exposures and the presence ofclinical signs and symptoms consistent with COVID-19. Anindividual without symptoms of COVID-19 and who is notshedding SARS-CoV-2 virus would expect to have a negative(not detected) result in this assay.Methodology: Nucleic Acid Amplification (CORDELL) ID Date Data Source [id number] 05/10/2020 11:10:00 AM EDT [address] PROGRESS NOTEPATIENT NAME: [facility]ATCH [facility] PH[facility]ICIAN: BOGDAN ALMAGUER MDAUTHOR: Colleen SMITH,Sarahy. DATE: 02/15/20 MR#: [id number] NOTE DATE: 05/10/20 RM#: [id number] TIME: 1113 is 19-year-old female, currently single, lives in a motel,past psych history of bipolar disorderCC/Hx Present IllnessThe patient was referred for evaluation because pt having suicidal ideations.Events Since Last EntryPatient reporting feeling somewhat better, expressing that she did not have anyconcern about her safety or others at this point, patient also stated that shemaintain safe behavior on the unit, she was also talking about her anxiety andcoping skills which we discussed with the patient and patient stated that sheis open to use her coping skills as well. Denied having any medical issues andpatient was also educated about her lab results as well.Mental status examination: Patient was alert, oriented with a place, person,appeared less anxious, less distracted, her speech remained somewhat pressured,mood is okay, affect was constricted, thought process was mostly superficiallyorganized, thought content denied having any suicidal, homicidal ideations,denied having any auditory visual h allucinations, denied delusions, attentionconcentration limited, insight and judgment appeared limited as wellPlan: Consider to continue current treatment plan, no medication changes, atthis point discussed with the patient about healthy diet and patient expressedmaintain safe behavior on the unit as well.ObjectiveVital SignsVital Signs-LastResult Date TimeTemp 97.5 05/10 0723Pulse Ox 99 05/09 1233B/P 121/78 05/09 1233Pulse 77 05/09 1233Resp 17 05/09 1233Current MedicationsLoratadine (Claritin) 10 MG DAILY POTopiramate (Topamax) 50 MG BID POIbuprofen (Motrin) 600 MG Q6HPRN PRN POFluoxetine HCl (Prozac) 20 MG DAILY POLoperamide HCl (Imodium) 2 MG Q2HPRN PRN POSimethicone (Mylicon) 120 MG QIDPRN PRN POAcetaminophen (Tylenol) 650 MG Q4HPRN PRN POAcetaminophen (Tylenol) 650 MG Q4HPRN PRN POAl Hydrox/Mg Hydrox/Simethicone (Maalox) 15 ML QIDPRN PRN POHydroxyzine (Atarax) 50 MG Q4HPRN PRN POMagnesium Hydroxide (Mom) 10 ML QHSPRN PRN POTrazodone HCl (Desyrel) 50 MG QHSPRN PRN POExaminationMusculoskeletalGait normalStation normalResultsLaboratory DataRecent Labs-24 hours10/349518AhkhkbwshSrplao (136 - 147 mmol/L) 141Potassium (3.5 - 5.1 mmol/L) 4.5Chloride (99 - 110 mmol/L) 109Serum Bicarbonate (20 - 33 mmol/L) 26Anion Gap (10.0 - 20.0) 10.5BUN (7 - 23 mg/dL) 12Creatinine (0.500 - 1.300 mg/dL) 0.502Glucose (70 - 110 mg/dL) 80Calcium (8.3 - 10.7 mg/dL) 9.1Total Bilirubin (0.1 - 1.1 mg/dL) 0.4AST (6 - 38 U/L) 30ALT (6 - 54 U/L) 57 HAlkaline Phosphatase (82 - 169 U/L) 142Total Protein (6.0 - 7.8 g/dL) 7.7Albumin (3.5 - 5.0 g/dL) 4.0Globulin (2.3 - 3.5 g/dL) 3.7 HAlbumin/Globulin Ratio (1.0 - 2.5) 1.1HematologyWBC (4.0 - 10.5 x10E3/uL) 7.62RBC (4.20 - 5.40 x10E6/uL) 4.40Hgb (12.0 - 16.0 g/dL) 12.7Hct (37.0 - 47.0 %) 38.7MCV (81.0 - 99.0 fL) 88.0MCH (27.0 - 31.0 pg) 28.9MCHC (32.7 - 35.6 g/dL) 32.8RDW (11.5 - 14.0 %) 12.7Plt Count (150 - 450 x10E3/uL) 254MPV (6.9 - 9.5 fl) 9.9 HImmature Gran % (Auto) (0.1 - 2.0 %) 0.4Neut % (Auto) (34 - 64 %) 58.1Lymph % (Auto) (25 - 45 %) 34.1Mono % (Auto) (1.7 - 10.6 %) 6.4Eos % (Auto) (0.4 - 7.0 %) 0.9Baso % (Auto) (0.1 - 2.0 %) 0.1Abs Immat Gran (auto) (0.0 - 0.1 x10E3/uL) 0.03Absolute Neuts (auto) (1.2 - 7.6 x10E3/uL) 4.42Absolute Lymphs (auto) (1.0 - 3.5 x10E3/uL) 2.60Absolute Monos (auto) (0.1 - 1.0 x10E3/uL) 0.49Absolute Eos (auto) (0.1 - 0.7 x10E3/uL) 0.07 LAbsolute Basos (auto) (0.0 - 0.1 x10E3/uL) 0.01Nucleated RBC % (auto) (0 %) 0Results Ordered/ReviewedLab Tests reviewedAssessment/PlanDiagnosis1. Major depressive disorderStatus Acute2. Bipolar affective disorder3. Borderline personality disorderCoordination of care provided with nursing staff, treatment team, social work,physician's, familyRisk/benefits discussed side effectsJustification for continued stay danger to self/othersDATE SIGNED: 05/10/20 Electronically SignedTIME SIGNED: 1112 BOGDAN ALMAGUER MD Name Value Range Interpretation Code Description Data Stephanie rce(s) Supporting Document(s) ID Date Data Source [id number] 05/09/2020 05:28:00 PM EDT [facility] Name Value Range Interpretation Code Description Data Stephanie rce(s) Supporting Document(s) GLU 80 mg/dL 70-110 [facility] Patients taking Sulfasalazine may have f alsely depressedGlucose levels. Patients taking Sulfapyridine may havefalsely elevated Glucose levels. Patients should be drawnfor Glucose before the initial administration of eitherdrug. BUN 12 mg/dL 7-23 [facility] CRE 0.502 mg/dL 0.500-1.300 [facility] CHLORIDE 109 mmol/L 99-110 [facility] NA 141 mmol/L 136-147 [facility] POTASSIUM 4.5 mmol/L 3.5-5.1 [facility] TCO2 26 mmol/L 20-33 [facility] ANION GAP 10.5 10.0-20.0 [facility] CA 9.1 mg/dL 8.3-10.7 [facility] ALKALINE PHOS 142 U/L 82-169 [facility] TP 7.7 g/dL 6.0-7.8 [facility] ALB 4.0 g/dL 3.5-5.0 [facility] ESRD Dialysis patient Albumin reference range: 2.9-4.4 g/dL GL 3.7 g/dL 2.3-3.5 [facility] A/G 1.1 1.0-2.5 [facility] T. BILIRUBIN 0.4 mg/dL 0.1-1.1 [facility] [place] Total Bilirubin is n ot recommended forpatients undergoing treatment with eltrombopag (Promacta)due to the potential for falsely elevated results. ALTI 57 U/L 6-54 [facility] Patients taking Sulfasalazine and/or Sul fapyridine may havefalsely depressed ALT levels. Patients should be drawn forALT before the initial administration of either drug. AST 30 U/L 6-38 [facility] Patients taking Sulfasalazine and/or Sul fapyridine may havefalsely depressed AST levels. Patients should be drawn forAST before the initial administration of either drug. ID Date Data Source [id number] 05/09/2020 05:00:00 PM EDT [facility] Name Value Range Interpretation Code Description Data Stephanie rce(s) Supporting Document(s) WBC 7.62 x10E3/uL 4.0-10.5 [facility] RBC 4.40 x10E6/uL 4.20-5.40 [facility] Hemoglobin 12.7 g/dL 12.0-16.0 [facility] Hematocrit 38.7 % 37.0-47.0 [facility] MCV 88.0 fL 81.0-99.0 [facility] MCH 28.9 pg 27.0-31.0 [facility] MCHC 32.8 g/dL 32.7-35.6 [facility] RDW 12.7 % 11.5-14.0 [facility] Platelet count 254 x10E3/uL 150-450 [facility] ital MPV 9.9 fl 6.9-9.5 [facility] Neutrophils 58.1 % 34-64 [facility] Lymphocytes 34.1 % 25-45 [facility] Monocytes 6.4 % 1.7-10.6 [facility] Eosinophils 0.9 % 0.4-7.0 [facility] Basophils 0.1 % 0.1-2.0 [facility] Imm. Gran. 0.4 % 0.1-2.0 [facility] Abs. Neutro. 4.42 x10E3/uL 1.2-7.6 [facility] [place] Abs. Lymph. 2.60 x10E3/uL 1.0-3.5 [facility] Abs. Bryan. 0.49 x10E3/uL 0.1-1.0 [facility] Abs. Eosin. 0.07 x10E3/uL 0.1-0.7 [facility] Abs. Baso. 0.01 x10E3/uL 0.0-0.1 [facility] Abs. Imm. Gran. 0.03 x10E3/uL 0.0-0.1 [facility] ANRBC% 0 % 0 [facility] ID Date Data Source [id number] 05/09/2020 01:04:00 PM EDT [facility] [address] HEALTH PROGRESS NOTEPATIENT NAME: YARELI HATCH PHYSICIAN: BOGDAN ALMAGUER, MDAUTHOR: Colleen SMITH,DhruvADM. DATE: 02/15/20 MR#: [id number] NOTE DATE: 05/09/20 RM#: [id number] TIME: 1307 is 19-year-old female, currently single, lives in a motel,past psych history of bipolar disorderCC/Hx Present IllnessThe patient was referred for evaluation because pt having suicidal ideations.Events Since Last EntryPatient reporting that she was feeling anxious, and according to the reportinformation that patient drank some shampoo yesterday as well. Patient waseducated about maintaining her safety and others, upon asking the reasonpatient stated that she was anxious and she was kind of very overwhelmed andworried about that as well. Discussed with the patient about poison controlrecommendation about clear diet for the next day or so as well as having somelabs work done as well which patient does not feel comfortable at this pointand refused as well. Patient was also stating that she was kind of anxiousregarding her discharge plan and discharge placement as well. Patient deniedhaving any direct suicidal, homicidal ideation and expressed to maintain safebehavior on the unit. Discussed with the patient regarding clear dietrecommendation which patient seems to be somewhat upset later on as well.Mental status examination: Patient was alert, oriented with a place, person,appeared anxious, distracted, her speech remain somewhat pressured, mood isanxious, affect was constricted, thought process was mostly organized, thoughtcontent denied having any current suicidal, homicidal ideation, denied havingany auditory visual hallucination, denied having any delusions, attentionconcentration limited, insight and judgment appeared limited/impaired, stablegaitPlan: Consider to continue current treatment plan and will follow therecommendation from poison control regarding clear diet as well as checkingpatient lab results as well. Also continuing current psychotropic medicationand also recommended with staff regarding restricting certain contraband thatpatient would have access to due to concern about her impulsive behavior attimes.ObjectiveVital SignsVital Signs-LastResult Date TimePulse Ox 99 05/09 1233B/P 121/78 05/09 1233Temp 97.7 05/09 1233Pulse 77 05/09 1233Resp 17 05/09 1233Current MedicationsLoratadine (Claritin) 10 MG DAILY POTopiramate (Topamax) 50 MG BID POIbuprofen (Motrin) 600 MG Q6HPRN PRN POFluoxetine HCl (Prozac) 20 MG DAILY POLoperamide HCl (Imodium) 2 MG Q2HPRN PRN POSimethicone (Mylicon) 120 MG QIDPRN PRN POAcetaminophen (Tylenol) 650 MG Q4HPRN PRN POAcetaminophen (Tylenol) 650 MG Q4HPRN PRN POAl Hydrox/Mg Hydrox/Simethicone (Maalox) 15 ML QIDPRN PRN POHydroxyzine (Atarax) 50 MG Q4HPRN PRN POMagnesium Hydroxide (Mom) 10 ML QHSPRN PRN POTrazodone HCl (Desyrel) 50 MG QHSPRN PRN POExaminationMusculoskeletalGait normalStation normalResultsResults Ordered/Rev iewedLab Tests reviewedAssessment/PlanDiagnosis1. Major depressive disorderStatus Acute2. Bipolar affective disorder3. Borderline personality disorderCoordination of care provided with nursing staff, treatment team, social work,physician's, familyRisk/benefits discussed side effectsJustification for continued stay danger to self/othersDATE SIGNED: 05/09/20 Electronically SignedTIME SIGNED: 5706 BOGDAN ALMAGUER MD Name Value Range Interpretation Code Description Data Stephanie rce(s) Supporting Document(s) ID Date Data Source [id number] 05/08/2020 12:46:00 PM EDT [place] [address]MENT[facility] PROGRESS NOTEPATIENT NAME: YARELI HATCH PHYSICIAN: BOGDAN ALMAGUER MDAUTHOR: Colleen SMITH,DhruvADM. DATE: 02/15/20 MR#: [id number] NOTE DATE: 05/08/20 RM#: [id number] TIME: 1248 is 19-year-old female, currently single, lives in a motel,past psych history of bipolar disorderCC/Hx Present IllnessThe patient was referred for evaluation because pt having suicidal ideations.Events Since Last EntryPatient reporting feeling somewhat better, denies having any medical issues,also compliant with her treatment plan, she stated that she is somewhat anxiousregarding being discharged outside to [facility] where she does not know anyoneas well. But she would do wanted to get discharged from here as well. Deniedhaving any suicidal, homicidal ideations.Mental status examination: Patie nt was alert, oriented with a place, person,appeared somewhat distracted, anxious slightly labile, her speech remainsomewhat softer, mood is anxious, affect was slightly labile, thought processwas somewhat circumstantial, thought content denied having any suicidal,homicidal ideations, denied having any auditory visual hallucinations, denieddelusions, attention concentration limited, insight and judgment appearedimprovedPlan: Consider to continue current treatment plan, monitoring for patientsafety, discussed with the patient regarding safe discharge plan and possibledischarge to [facility], patient seems com pliant with her treatment plan.ObjectiveVital SignsVital Signs-LastResult Date TimeTemp 95.2 05/08 0740Pulse Ox 99 05/07 1302B/P 120/69 05/07 1302Pulse 83 05/07 1302Resp 19 05/07 1302Current MedicationsLoratadine (Claritin) 10 MG DAILY POTopiramate (Topamax) 50 MG BID POIbuprofen (Motrin) 600 MG Q6HPRN PRN POFluoxetine HCl (Prozac) 20 MG DAILY POLoperamide HCl (Imodium) 2 MG Q2HPRN PRN POSimethicone (Mylicon) 120 MG QIDPRN PRN POAcetaminophen (Tylenol) 650 MG Q4HPRN PRN POAcetaminophen (Tylenol) 650 MG Q4HPRN PRN POAl Hydrox/Mg Hydrox/Simethicone (Maalox) 15 ML QIDPRN PRN POHydroxyzine (Atarax) 50 MG Q4HPRN PRN POMagnesium Hydroxide (Mom) 10 ML QHSPRN PRN POTrazodone HCl (Desyrel) 50 MG QHSPRN PRN POExaminationMusculoskeletalGait normalStation normalResultsResults Ordered/ReviewedLab Tests reviewedAssessment/PlanDiagnosis1. Major depressive disorderStatus Acute2. Bipolar affective disorder3. Borderline personality disorderCoordination of care provided with nursing staff, treatment team, social work,physician's, familyRisk/benefits discussed side effectsJustification for continued stay danger to self/othersDATE SIGNED: 05/08/20 Electronically SignedTIME SIGNED: 1248 BOGDAN ALMAGUER MD Name Value Range Interpretation Code Description Data Stephanie rce(s) Supporting Document(s) ID Date Data Source [id number] 05/07/2020 01:49:00 PM EDT [address] HEALTH PROGRESS NOTEPATIENT NAME: YARELI HATCH PHYSICIAN: BOGDAN ALMAGUER MDAUTHOR: Colleen SMITH,DhruvADM. DATE: 02/15/20 MR#: [id number] NOTE DATE: 05/07/20 RM#: [id number] TIME: 1351 is 19-year-old female, currently single, lives in a motel,past psych history of bipolar disorderCC/Hx Present IllnessThe patient was referred for evaluation because pt having suicidal ideations.Events Since Last EntryPatient reporting feeling better, expressing that she feels much moreoptimistic and comfortable about her discharge plan leaving next week as well.She also expressed to maintain safe behavior on the unit and stating that sheis excited so that she will continue taking her medication and denied havingany medical issues as well.Mental status examination: Patient was alert, oriented with place and person,appeared less anxious, less distracted, somewhat pleasant, her speech remainslightly pressured, mood is better, affect was less constricted, thoughtprocess was mostly organized superficially, thought content denied having anysuicidal, homicidal ideations, denied having any auditory visual hallucinations, denied delusions, attention concentration limited, insight and judgmentappeared somewhat improved, limited impulse control activityPlan: Consider to continue current treatment plan, patient will be safelydischarged to [facility] next week as patient appears at her baseline, denies havingany concern about medication side effect interaction, shows improvement withher mood and behavior at this point as well.ObjectiveVital SignsVital Signs-LastResult Date TimePulse Ox 99 05/07 1302B/P 120/69 05/07 1302Temp 98.1 05/07 1302Pulse 83 05/07 1302Resp 19 05/07 1302Current MedicationsLoratadine (Claritin) 10 MG DAILY POTopiramate (Topamax) 50 MG BID POIbuprofen (Motrin) 600 MG Q6HPRN PRN POFluoxetine HCl (Prozac) 20 MG DAILY POLoperamide HCl (Imodium) 2 MG Q2HPRN PRN POSimethicone (Mylicon) 120 MG QIDPRN PRN POAcetaminophen (Tylenol) 650 MG Q4HPRN PRN POAcetaminophen (Tylenol) 650 MG Q4HPRN PRN POAl Hydrox/Mg Hydrox/Simethicone (Maalox) 15 ML QIDPRN PRN POHydroxyzine (Atarax) 50 MG Q4HPRN PRN POMagnesium Hydroxide (Mom) 10 ML QHSPRN PRN POTrazodone HCl (Desyrel) 50 MG QHSPRN PRN POExaminationMusculoskeletalGait normalStation normalResultsResults Ordered/ReviewedLab Tests reviewedAssessment/PlanDiagnosis1. Major depressive disorderStatus Acute2. Bipolar affective disorder3. Borderline personality disorderCoordination of care provided with nursing staff, treatment team, social work,physician's, familyRisk/benefits discussed side effectsJustification for continued stay danger to self/othersDATE SIGNED: 05/07/20 Electronically SignedTIME SIGNED: 1351 BOGDAN ALMAGUER MD Name Value Range Interpretation Code Description Data Stephanie rce(s) Supporting Document(s) ID Date Data Source [id number] 05/06/2020 01:32:00 PM EDT [place] [id number] HEALTH PROGRESS NOTEPATIENT NAME: DAMARISYARELI CAPELLAN PHYSICIAN: BOGDAN ALMAGUER MDAUTHOR: Colleen SMITH,DhruvADM. DATE: 02/15/20 MR#: [id number] NOTE DATE: 05/06/20 RM#: [id number] TIME: 1335 is 19-year-old female, currently single, lives in a motel,past psych history of bipolar disorderCC/Hx Present IllnessThe patient was referred for evaluation because pt having suicidal ideations.Events Since Last EntryPatient was seen along with sitter as well as practice coordinator on otherside, patient was resting comfortable, discussed with the patient regardingrecent incident which patient stated that she was feeling okay but she was kindof getting bored and feeling depressed by staying at this place as well. Shealso expressed to maintain safe behavior on the unit however we discussed withthe patient about recent suicidal ideation where she reported and showed someunsafe behavior which patient stated that she was just upset due to being hereas well. Discussed with the patient about safe discharge plan that patientwill be accepted ATLS which patient open to go as well. Patient also statedthat she will reach out to the staff if needed and at this point discussed withthe patient about still monitoring for her safety continuing one-to-one whichpatient agreed as well.Mental status examination: Patient was alert, oriented with a place, person,appeared somewhat distracted, anxious, her speech remained pressured., Moodwas irritable, affect was constricted, thought process was superficiallyorganized, thought content denied having any suicidal, homicidal ideations atthis point, denied having any auditory visual hallucinations, attentionconcentration limited, insight and judgment appeared limited as wellPlan: Consider to continue current treatment plan, working on safe dischargeplan, at this point we discussed with the patient about continuing Topamaxmedication which patient agreed for for mood stabilization that she was on itbefore but did not want to continue taking it as well. Patient is currentlyplaced on one-to-one due to recent suicidal ideation but patient expressed tomaintain safe behavior and the patient does so we will continue to monitor herleast restrictive way and possible taken off from one-to-one.ObjectiveVital SignsVital Signs-LastResult Date TimeTemp 97.3 05/06 0636Pulse Ox 96 05/06 0012B/P 114/74 05/06 0012Pulse 66 05/06 0012Resp 17 05/06 0012Current MedicationsLoratadine (Claritin) 10 MG DAILY POIbuprofen (Motrin) 600 MG Q6HPRN PRN POFluoxetine HCl (Prozac) 20 MG DAILY POLoperamide HCl (Imodium) 2 MG Q2HPRN PRN POSimethicone (Mylicon) 120 MG QIDPRN PRN POAcetaminophen (Tylenol) 650 MG Q4HPRN PRN POAcetaminophen (Tylenol) 650 MG Q4HPRN PRN POAl Hydrox/Mg Hydrox/Simethicone (Maalox) 15 ML QIDPRN PRN POHydroxyzine (Atarax) 50 MG Q4HPRN PRN POMagnesium Hydroxide (Mom) 10 ML QHSPRN PRN POTrazodone HCl (Desyrel) 50 MG QHSPRN PRN POExaminationMusculoskeletalGait normalStation normalResultsResults Ordered/ReviewedLab Tests reviewedAssessment/PlanDiagnosis1. Major depressive disorderStatus Acute2. Bipolar affective disorder3. Borderline personality disorderCoordination of care provided with nursing staff, treatment team, social work,physician's, familyRisk/benefits discussed side effectsJustification for continued stay danger to self/othersDATE SIGNED: 05/06/20 Electronically SignedTIME SIGNED: 1335 BOGDAN ALMAGUER MD Name Value Range Interpretation Code Description Data Stephanie rce(s) Supporting Document(s) ID Date Data Source [id number] 05/05/2020 11:49:00 PM EDT Joe Stella heaton [facility] [place], [place] [id number] NOTE FOLLOW UPPATIENT NAME: YARELI HATCH PHYSICIAN: BOGDAN ALMAGUER MDAUTHOR: Lea Yusuf MD. DATE: 02/15/20 MR#: [id number] NOTE DATE: 05/05/20 RM#: [id number] TIME: 13 : 00Progress Note Follow UpSummaryNurse called to report the patient has mixed baby powder with water in an 8ounce cup and drank it. I went to evaluate patient at the mental health unitpatient denies any abdominal pain, nausea vomiting or diarrhea. Poison controlwas called and they recommended observation. Patient denies any chest painshortness of breath, dizziness or lightheadedness.Vitals: BP: 114/74, HR: 66, RR: 17, Temp: 97.7, o2 sat: 96% on room airPhysical exam:General: No acute distress resting comfortably in bed.HEENT: Neck is supple no JVD.Lungs: Clear to auscultation bilaterally no wheezes rales or rhonchi.Abdomen is soft, nontender, nondistende, positive bowel sounds, no guarding orrebound tenderness.Heart: Normal S1-S2, regular rate rhythm, no murmurs rubs or gallops.Extremities: No cyanosis no clubbing no edema.Plan:Per poison control recommendations patient should be observed. She does nothave any abdominal pain, nausea or vomiting. We will continue to observepatient at the mental health unit. If patient's condition deteriorates patientwill be transferred to the inpatient [facility] for further management.DATE SIGNED: 05/06/20 Electronically SignedTIME SIGNED: 13 NEIL YUSUF MD Name Value Range Interpretation Code Description Data Stephanie rce(s) Supporting Document(s) ID Date Data Source [id number] 05/05/2020 02:12:00 AM EDT Joereal heaton Name Value Range Interpretation Code Description Data Stephanie rce(s) Supporting Document(s) MAGNESIUM 2.2 mg/dL 1.6-2.6 [facility] ID Date Data Source [id number] 05/05/2020 02:12:00 AM EDT [facility] [place] Name Value Range Interpretation Code Description Data Stephanie rce(s) Supporting Document(s) ALLEN 4.5 mg/dL 2.5-4.5 [facility] ID Date Data Source [id number] 05/05/2020 02:12:00 AM EDT [facility] [place] Name Value Range Interpretation Code Description Data Stephanie rce(s) Supporting Document(s) GLU 97 mg/dL 70-110 [facility] Patients taking Sulfasalazine may have f alsely depressedGlucose levels. Patients taking Sulfapyridine may havefalsely elevated Glucose levels. Patients should be drawnfor Glucose before the initial administration of eitherdrug. BUN 18 mg/dL 7-23 [facility] CRE 0.571 mg/dL 0.500-1.300 [facility] CHLORIDE 109 mmol/L 99-110 [facility] NA 142 mmol/L 136-147 [facility] POTASSIUM 4.3 mmol/L 3.5-5.1 [facility] TCO2 27 mmol/L 20-33 [facility] ANION GAP 10.3 10.0-20.0 [facility] CA 8.7 mg/dL 8.3-10.7 [facility] ALKALINE PHOS 126 U/L 82-169 [facility] TP 7.1 g/dL 6.0-7.8 [facility] ALB 3.6 g/dL 3.5-5.0 [facility] ESRD Dialysis patient Albumin reference range: 2.9-4.4 g/dL GL 3.5 g/dL 2.3-3.5 [facility] A/G 1.0 1.0-2.5 [facility] T. BILIRUBIN 0.3 mg/dL 0.1-1.1 [facility] [place] Total Bilirubin is n ot recommended forpatients undergoing treatment with eltrombopag (Promacta)due to the potential for falsely elevated results. ALTI 47 U/L 6-54 [facility] Patients taking Sulfasalazine and/or Sul fapyridine may havefalsely depressed ALT levels. Patients should be drawn forALT before the initial administration of either drug. AST 18 U/L 6-38 [facility] Patients taking Sulfasalazine and/or Sul fapyridine may havefalsely depressed AST levels. Patients should be drawn forAST before the initial administration of either drug. ID Date Data Source [id number] 05/05/2020 01:52:00 AM EDT [facility] [place] Name Value Range Interpretation Code Description Data Stephanie rce(s) Supporting Document(s) WBC 8.06 x10E3/uL 4.0-10.5 [facility] RBC 4.09 x10E6/uL 4.20-5.40 [facility] Hemoglobin 11.8 g/dL 12.0-16.0 [facility] Hematocrit 36.6 % 37.0-47.0 [facility] MCV 89.5 fL 81.0-99.0 [facility] MCH 28.9 pg 27.0-31.0 [facility] MCHC 32.2 g/dL 32.7-35.6 [facility] RDW 12.6 % 11.5-14.0 [facility] Platelet count 226 x10E3/uL 150-450 [facility] ital MPV 9.6 fl 6.9-9.5 [facility] Neutrophils 51.7 % 34-64 [facility] Lymphocytes 38.1 % 25-45 [facility] Monocytes 8.4 % 1.7-10.6 [facility] Eosinophils 1.1 % 0.4-7.0 [facility] Basophils 0.2 % 0.1-2.0 [facility] Imm. Gran. 0.5 % 0.1-2.0 [facility] Abs. Neutro. 4.16 x10E3/uL 1.2-7.6 [facility] [place] Abs. Lymph. 3.07 x10E3/uL 1.0-3.5 [facility] Abs. [place]. 0.68 x10E3/uL 0.1-1.0 [facility] Abs. Eosin. 0.09 x10E3/uL 0.1-0.7 [facility] Abs. Baso. 0.02 x10E3/uL 0.0-0.1 [facility] Abs. Imm. Gran. 0.04 x10E3/uL 0.0-0.1 [facility] ANRBC% 0 % 0 [facility] ID Date Data Source [id number] 05/05/2020 12:57:00 AM EDT [address] [id number] NOTE FOLLOW UPPATIENT NAME: YARELI HATCH PHYSICIAN: BOGDAN ALMAGUER MDAUTHOR: Dori SMITH,[facility] DATE: 02/15/20 MR#: [id number] NOTE DATE: 05/05/20 RM#: [id number] TIME: 0117 : 00Progress Note Follow UpSummaryMHU nurse called to evaluate patient as patient has strong hair conditioner. Ptis being treated for bipolar disorder in the mental health unit. Nurses reportpatient has been suicidal. Patient drank about 2/3 of the 59 cc bottle of hairconditioner. Patient reports she immediately vomited mostly if not all of thecondition immediately after drinking it. Patient has some nausea and vomitingafterwards. Poison control was contacted by the mental health unit. Perpoison control recommendations patient should be observed at the mental healthunit and there might be some nausea, vomiting and stomach upset as the mainside effects. Patient denied any chest pain, shortness of breath, dizziness orlightheadedness. She endorses some mild abdominal discomfort otherwise has noother symptomsVital signsBP: 118/82Heart rate: 79Temperature: 97.6Respiratory rate: 17O2 saturation: 100% on room air.Physical exam:General: Patient resting comfortably in bed, alert and oriented x3.HEENT: Head is normocephalic atraumatic.Lungs: Clear to auscultation bilaterally no wheezes rales or rhonchi.Heart: Normal S1-S2 regular rate rhythm no murmurs rubs or gallopsAbdomen: Soft, very mildly diffusely tender, nondi stended, positive bowelsoundsPlan:-We will observe patient in the mental health unit. Advised patient andnursing staff to report and notify us of any worsening abdominal pain, nauseaor vomiting or deterioration of patient's condition. Patient is currentlyalert and oriented x3, in no acute distress. Resting comfortably.-We will check CBC, CMP, mag and phosphorus.DATE SIGNED: 05/05/20 Electronically SignedTIME SIGNED: 0117 NEIL YUSUF MD Name Value Range Interpretation Code Description Data Stephanie rce(s) Supporting Document(s) ID Date Data Source [id number] 05/03/2020 01:24:00 PM EDT [place] [id number] HEALTH PROGRESS NOTEPATIENT NAME: YARELI HATCH PHYSICIAN: BOGDAN ALMAGUER MDAUTHOR: Colleen SMITH,DhruvADM. DATE: 02/15/20 MR#: [id number] NOTE DATE: 05/03/20 RM#: [id number] TIME: 1325 is 19-year-old female, currently single, lives in a motel,past psych history of bipolar disorderCC/Hx Present IllnessThe patient was referred for evaluation because pt having suicidal ideations.Events Since Last EntryPatient reporting feeling somewhat better, stating that she is somewhat doesnot want to take Topamax medication that does not seem to be working well andwe educated her about medication risk, alternatives and benefits as well.Patient denies having any suicidal, homicidal ideation, expressing to maintainsafe behavior on the unit, denies having any medical issues as well.Mental status examination: Patient was alert, oriented with time place person,cooperative, her speech remain somewhat louder, mood is better, affect was moodcongruent, thought process was mostly organized, thought content denied havingany suicidal, homicidal ideation, denied having any auditory visualhallucination, denied delusions, attention concentration limited, insight andjudgment appear limited as wellPlan: Consider to continue current treatment plan, discussed with the patientabout current medication treatment plan as well patient does not want to takeher Topamax medication which we will consider to discontinue at this point aswell patient is also due for Abilify Maintena which patient willing to try andcontinue with the medication and no concern about her safety reported at thispoint.ObjectiveVital SignsVital Signs-LastResult Date TimeTemp 98.1 05/03 0615Pulse Ox 99 05/01 1104B/P 123/63 05/01 1104Pulse 58 05/01 1104Resp 15 05/01 1104Current MedicationsIbuprofen (Motrin) 600 MG Q6HPRN PRN POFluoxetine HCl (Prozac) 20 MG DAILY POLoperamide HCl (Imodium) 2 MG Q2HPRN PRN POSimethicone (Mylicon) 120 MG QIDPRN PRN POAcetaminophen (Tylenol) 650 MG Q4HPRN PRN POAcetaminophen (Tylenol) 650 MG Q4HPRN PRN POAl Hydrox/Mg Hydrox/Simethicone (Maalox) 15 ML QIDPRN PRN POHydroxyzine (Atarax) 50 MG Q4HPRN PRN POMagnesium Hydroxide (Mom) 10 ML QHSPRN PRN POTrazodone HCl (Desyrel) 50 MG QHSPRN PRN POLoratadine (Claritin) 10 MG DAILY POPatient Own Medication (PT'S OWN MED) 400 DOSE Q28D IMExaminationMuscu loskeletalGait normalStation normalResultsResults Ordered/ReviewedLab Tests reviewedAssessment/PlanDiagnosis1. Major depressive disorderStatus Acute2. Bipolar affective disorder3. Borderline personality disorderCoordination of care provided with nursing staff, treatment team, social work,physician's, familyRisk/benefits discussed side effectsDATE SIGNED: 05/03/20 Electronically SignedTIME SIGNED: 1325 BOGDAN ALMAGUER MD Name Value Range Interpretation Code Description Data Stephanie rce(s) Supporting Document(s) ID Date Data Source [id number] 05/02/2020 01:53:00 PM EDT [place] [id number] HEALTH PROGRESS NOTEPATIENT NAME: YARELI HATCH PHYSICIAN: BOGDAN ALMAGUER MDAUTHOR: Colleen SMITH,DhdaphnievAPUJA. DATE: 02/15/20 MR#: [id number] NOTE DATE: 05/02/20 RM#: [id number] TIME: 1355 is 19-year-old female, currently single, lives in a motel,past psych history of bipolar disorderCC/Hx Present IllnessThe patient was referred for evaluation because pt having suicidal ideations.Events Since Last EntryPatient reporting feeling somewhat depressed, stating that she feelsoverwhelmed and she is still having difficulty with her mood as well. Statingthat her medication seems to be working well, discussed with the patient aboutincreasing Topamax medication which patient agreed, patient denies having anyhomicidal ideations, denies having any medical issues as well.Mental status examination: Patient was alert, oriented with a place, person,still appear distracted, somewhat overwhelmed, her speech remain somewhatpressured, mood was depressed, affect was mood noncongruent, thought processwas circumstantial, thought content denied having any direct suicidal,homicidal ideations, denied having any auditory visual hallucinations,attention concentration limited, insight and judgment appear limitedPlan: Consider to continue current treatment plan, discussed with the [facility]reg[facility] as well as increasing further Topamax medication 100 mgtwice daily for underlying mood stabilization as well. Monitoring for hersafety and working on safe discharge plan. Patient expressed willingness toreach out for further help.ObjectiveVital SignsVital Signs- LastResult Date TimeTemp 97.5 05/02 1138Pulse Ox 99 05/01 1104B/P 123/63 05/01 1104Pulse 58 05/01 1104Resp 15 05/01 1104Current MedicationsTopiramate (Topamax) 100 MG BID POIbuprofen (Motr in) 600 MG Q6HPRN PRN POFluoxetine HCl (Prozac) 20 MG DAILY POLoperamide HCl (Imodium) 2 MG Q2HPRN PRN POSimethicone (Mylicon) 120 MG QIDPRN PRN POAcetaminophen (Tylenol) 650 MG Q4HPRN PRN POAcetaminophen (Tylenol) 650 MG Q4HPRN PRN POAl Hydrox/Mg Hydrox/Simethicone (Maalox) 15 ML QIDPRN PRN POHydroxyzine (Atarax) 50 MG Q4HPRN PRN POMagnesium Hydroxide (Mom) 10 ML QHSPRN PRN POTrazodone HCl (Desyrel) 50 MG QHSPRN PRN POLoratadine (Claritin) 10 MG DAILY POPatient Own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 time.ObjectiveVital SignsVital Signs-LastResult Date TimeTemp 98.2 04/22 0616Pulse Ox 99 04/20 1737B/P 124/80 04/20 1737Pulse 41 04/20 1737Resp 16 04/20 1737Current MedicationsLoperamide HCl (Imodium) 2 MG Q2HPRN PRN POSimethicone (Mylicon) 120 MG QIDPRN PRN POAcetaminophen (Tylenol) 650 MG Q4HPRN PRN POAcetaminophen (Tylenol) 650 MG Q4HPRN PRN POAl Hydrox/Mg Hydrox/Simethicone (Maalox) 15 ML QIDPRN PRN POHydroxyzine (Atarax) 50 MG Q4HPRN PRN POMagnesium Hydroxide (Mom) 10 ML QHSPRN PRN POTrazodone HCl (Desyrel) 50 MG QHSPRN PRN POFluoxetine HCl (Prozac) 20 MG DAILY POTopiramate (Topamax) 50 MG BID POLoratadine (Claritin) 10 MG DAILY POPatient Own Medication (PT'S OWN MED) 400 DOSE Q28D IMBenzocaine/Pectin/Carboxymethylcell (Cepastat) 1 JHOAN Q2HPRN PRN POClotrimazole (Clotrimazole) 0 DIRECTED TOPNasal Lubricant (Saline Nasal [place]) 0 Q3HPRN PRN NASALExaminationMusculoskeletalGait normalStation normalMental Status ExaminationSpeech hyperverbal, loudThought Process illogicalThought Content abnormalAssociations tangentialAbnormal or Psychotic Thoughts suicidal, homocidalPatient's Judgement poorInsight poorReality Testing compromisedDecision Making Capacity compromisedMental StatusOrientation time, place, person, name, situationRecent & Remote Memory intactConcentration impairedFund of Knowledge: awareness of current events, past history, vocabularyMood euphoric, elated, irritable, anxious, Labile mood, laughing and smilingone minute, then irritable and angry.Affect broad, expansive, labileResultsResults Ordered/ReviewedLab Tests reviewedAssessment/PlanDiagnosis1. Major depressive disorderStatus Acute2. Bipolar affective disorder3. Borderline personality disorderCoordination of care provided with nursing staff, treatment team, social work,physician's, familyRisk/benefits discussed side effectsJustification for continued stay danger to self/others, behavior intolerableDATE SIGNED: 04/22/20 Electronically SignedTIME SIGNED: 1310 FRANTZ GIORDANO Name Value Range Interpretation Code Description Data Stephanie rce(s) Supporting Document(s) ID Date Data Source [id number] 04/19/2020 01:13:00 PM EDT [address] HEALTH PROGRESS NOTEPATIENT NAME: YARELI HATCH PHYSICIAN: BOGDAN ALMAGUER, MDAUTHOR: Colleen SMITH,DhruvAPUJA. DATE: 02/15/20 MR#: [id number] NOTE DATE: 04/19/20 RM#: [id number] TIME: 1315 is 19-year-old female, currently single, lives in a motel,past psych history of bipolar disorderCC/Hx Present IllnessThe patient was referred for evaluation because pt having suicidal ideations.Events Since Last EntryPatient reporting feeling okay, she stated that she has a borderlinepersonality disorder, she is somewhat upset and depressed about being here butshe stated that she does not have any other place outside and she does not feelcomfortable going to the motel place, she is not suicidal, and she will do muchbetter when she get discharged from here. She expressed to maintain safebehavior and willing to continue taking her medication at this point as well.Mental status examination: Patient was alert, oriented with a place, person,appeared somewhat distracted, somewhat elevated mood, speech was pressured,affect was mood non- congruent, thought process was circumstantial, thoughtcontent denied having any suicidal, homicidal ideations, denied having anyauditory visual hallucinations, denied delusions, attention concentrationlimited, insight and judgment appeared limited, stable gaitPlan: Consider to continue current treatment plan, no medication changes,working on safe discharge plan if needed we will consider to AOT for furthertreatment and safe discharge plan.ObjectiveVital SignsVital Signs-LastResult Date TimeTemp 97.4 04/19 0719Pulse Ox 99 04/18 1153B/P 112/71 04/18 1153Pulse 75 04/18 1153Resp 20 04/18 1153Current MedicationsLoperamide HCl (Imodium) 2 MG Q2HPRN PRN POSimethicone (Mylicon) 120 MG QIDPRN PRN POAcetaminophen (Tylenol) 650 MG Q4HPRN PRN POAcetaminophen (Tylenol) 650 MG Q4HPRN PRN POAl Hydrox/Mg Hydrox/Simethicone (Maalox) 15 ML QIDPRN PRN POHydroxyzine (Atarax) 50 MG Q4HPRN PRN POMagnesium Hydroxide (Mom) 10 ML QHSPRN PRN POTrazodone HCl (Desyrel) 50 MG QHSPRN PRN POFluoxetine HCl (Prozac) 20 MG DAILY POTopiramate (Topamax) 50 MG BID POLoratadine (Claritin) 10 MG DAILY POPatient Own Medication (PT'S OWN MED) 400 DOSE Q28D IMBenzocaine/Pectin/Carboxymethylcell (Cepastat) 1 JHOAN Q2HPRN PRN POClotrimazole (Clotrimazole) 0 DIRECTED TOPNasal Lubricant (Saline Nasal [place]) 0 Q3HPRN PRN NASALExaminationMusculoskeletalGait normalStation normalResultsResults Ordered/ReviewedLab Tests reviewedAssessment/PlanDiagnosis1. Major depressive disorderStatus Acute2. Suicide attemptStatus Acute3. Bipolar affective disorderCoordination of care provided with nursing staff, treatment teamRisk/benefits discussed side effectsDATE SIGNED: 04/19/20 Electronically SignedTIME SIGNED: 1315 BOGDAN ALMAGUER MD Name Value Range Interpretation Code Description Data Stephanie rce(s) Supporting Document(s) ID Date Data Source [id number] 04/18/2020 12:59:00 PM EDT [address] HEALTH PROGRESS NOTEPATIENT NAME: YARELI HATCHDING PHYSICIAN: BOGDAN ALMAGUER MDAUTHOR: Colleen SMITH,DhruvADM. DATE: 02/15/20 MR#: [id number] NOTE DATE: 04/18/20 RM#: [id number] TIME: 1301 is 19-year-old female, currently single, lives in a motel,past psych history of bipolar disorderCC/Hx Present IllnessThe patient was referred for evaluation because pt having suicidal ideations.Events Since Last EntryPatient reporting having better mood, stating that she has been taking hermedication, she was also stating that the friend that she has been staying intouch with he is also homeless so she does not have any safe plan for dischargeat this point as well. She stated that she has been currently working on herdischarge plan as well. Denied having any concern about his safety or othersand expressed to maintain safe behavior on the unit as well. Patient was alsoobserved pleasant somewhat during this course of assessment.Mental status examination: Patient was alert, oriented with a place, person,appeared somewhat pleasant, excited, her speech remained slightly pressured,mood is better, affect was elevated, thought process was somewhatcircumstantial, thought content denied having any suicidal, homicidal ideations, denied having any auditory visual hallucinations, denied delusions, attentionconcentration limited, insight and judgment appear limited, stable gaitPlan: Consider to continue current treatment plan, no concern about her safetyreported, currently working on safe discharge plan, TLS referral being sent atthis point as well.ObjectiveVital SignsVital Signs-LastResult Date Ti mePulse Ox 99 04/18 1153B/P 112/71 04/18 1153Temp 97.5 04/18 1153Pulse 75 04/18 1153Resp 20 04/18 1153Current MedicationsLoperamide HCl (Imodium) 2 MG Q2HPRN PRN POSimethicone (Mylicon) 120 MG QIDPRN PRN POAcetaminophen (Tylenol) 650 MG Q4HPRN PRN POAcetaminophen (Tylenol) 650 MG Q4HPRN PRN POAl Hydrox/Mg Hydrox/Simethicone (Maalox) 15 ML QIDPRN PRN POHydroxyzine (Atarax) 50 MG Q4HPRN PRN POMagnesium Hydroxide (Mom) 10 ML QHSPRN PRN POTrazodone HCl (Desyrel) 50 MG QHSPRN PRN POFluoxetine HCl (Prozac) 20 MG DAILY POTopiramate (Topamax) 50 MG BID POLoratadine (Claritin) 10 MG DAILY POPatient Own Medication (PT'S OWN MED) 400 DOSE Q28D IMBenzocaine/Pectin/Carboxymethylcell (Cepastat) 1 JHOAN Q2HPRN PRN POClotrimazole (Clotrimazole) 0 DIRECTED TOPNasal Lubricant (Saline Nasal [place]) 0 Q3HPRN PRN NASALExaminationMusculoskeletalGait normalStation normalResultsLaboratory DataRecent Labs-24 hours04/17 1822ChemistrySodium (136 - 147 mmol/L) 141Potassium (3.5 - 5.1 mmol/L) 3.9Chloride (99 - 110 mmol/L) 109Serum Bicarbonate (20 - 33 mmol/L) 24Anion Gap (10.0 - 20.0) 11.9BUN (7 - 23 mg/dL) 17Creatinine (0.500 - 1.300 mg/dL) 0.692Glucose (70 - 110 mg/dL) 113 HHemoglobin A1c (3.8 - 5.6 %) 4.70Calcium (8.3 - 10.7 mg/dL) 9.1Total Bilirubin (0.1 - 1.1 mg/dL) 0.3AST (6 - 38 U/L) 26ALT (6 - 54 U/L) 45Alkaline Phosphatase (82 - 169 U/L) 148Total Protein (6.0 - 7.8 g/dL) 8.0 HAlbumin (3.5 - 5.0 g/dL) 4.3Globulin (2.3 - 3.5 g/dL) 3.7 HAlbumin/Globulin Ratio (1.0 - 2.5) 1.2Lipase (73 - 393 U/L) 60.0 LHematologyWBC (4.0 - 10.5 x10E3/uL) 6.99RBC (4.20 - 5.40 x10E6/uL) 4.51Hgb (12.0 - 16.0 g/dL) 13.0Hct (37.0 - 47.0 %) 39.4MCV (81.0 - 99.0 fL) 87.4MCH (27.0 - 31.0 pg) 28.8MCHC (32.7 - 35.6 g/dL) 33.0RDW (11.5 - 14.0 %) 12.7Plt Count (150 - 450 x10E3/uL) 260MPV (6.9 - 9.5 fl) 9.5Immature Gran % (Auto) (0.1 - 2.0 %) 0.3Neut % (Auto) (34 - 64 %) 53.5Lymph % (Auto) (25 - 45 %) 38.1Mono % (Auto) (1.7 - 10.6 %) 6.9Eos % (Auto) (0.4 - 7.0 %) 0.9Baso % (Auto) (0.1 - 2.0 %) 0.3Abs Immat Gran (auto) (0.0 - 0.1 x10E3/uL) 0.02Absolute Neuts (auto) (1.2 - 7.6 x10E3/uL) 3.75Absolute Lymphs (auto) (1.0 - 3.5 x10E3/uL) 2.66Absolute Monos (auto) (0.1 - 1.0 x10E3/uL) 0.48Absolute Eos (auto) (0.1 - 0.7 x10E3/uL) 0.06 LAbsolute Basos (auto) (0.0 - 0.1 x10E3/uL) 0.02Nucleated RBC % (auto) (0 %) 0Results Ordered/ReviewedLab Tests reviewedAssessment/PlanDiagnosis1. Major depressive disorderStatus Acute2. Suicide attemptStatus Acute3. Bipolar affective disorderCoordination of care provided with nursing staff, treatment teamRisk/benefits discussed side effectsJustification for continued stay behavior intolerableDATE SIGNED: 04/18/20 Electronically SignedTIME SIGNED: 1300 BOGDAN ALMAGUER MD Name Value Range Interpretation Code Description Data Stephanie rce(s) Supporting Document(s) ID Date Data Source [id number] 04/17/2020 07:50:00 PM [facility]T [facility] [place] Name Value Range Interpretation Code Description Data Stephanie rce(s) Supporting Document(s) LIP 60.0 U/L 73-393 L [facility] ID Date Data Source [id number] 04/17/2020 07:50:00 PM EDT [facility] Name Value Range Interpretation Code Description Data Stephanie rce(s) Supporting Document(s) GLU 113 mg/dL 70-110 H [facility] Patients taking Sulfasalazine may have f alsely depressedGlucose levels. Patients taking Sulfapyridine may havefalsely elevated Glucose levels. Patients should be drawnfor Glucose before the initial administration of eitherdrug. BUN 17 mg/dL 7-23 [facility] CRE 0.692 mg/dL 0.500-1.300 [facility] CHLORIDE 109 mmol/L 99-110 [facility] NA 141 mmol/L 136-147 [facility] POTASSIUM 3.9 mmol/L 3.5-5.1 [facility] TCO2 24 mmol/L 20-33 [facility] ANION GAP 11.9 10.0-20.0 [facility] CA 9.1 mg/dL 8.3-10.7 [facility] ALKALINE PHOS 148 U/L 82-169 [facility] TP 8.0 g/dL 6.0-7.8 H [facility] ALB 4.3 g/dL 3.5-5.0 [facility] ESRD Dialysis patient Albumin reference range: 2.9-4.4 g/dL GL 3.7 g/dL 2.3-3.5 H [facility] A/G 1.2 1.0-2.5 [facility] T. BILIRUBIN 0.3 mg/dL 0.1-1.1 [facility] [place] Total Bilirubin is n ot recommended forpatients undergoing treatment with eltrombopag (Promacta)due to the potential for falsely elevated results. ALTI 45 U/L 6-54 [facility] Patients taking Sulfasalazine and/or Sul fapyridine may havefalsely depressed ALT levels. Patients should be drawn forALT before the initial administration of either drug. AST 26 U/L 6-38 [facility] Patients taking Sulfasalazine and/or Sul fapyridine may havefalsely depressed AST levels. Patients should be drawn forAST before the initial administration of either drug. ID Date Data Source [id number] 04/17/2020 07:17:00 PM EDT [facility] [place] Name Value Range Interpretation Code Description Data Stephanie rce(s) Supporting Document(s) HbA1C 4.70 % 3.8-5.6 [facility] Suggested Diagnosis HbA1c% Diabet ic >/= 6.5Prediabetes 5.7%-6.4%Normal < 5.7% ID Date Data Source [id number] 04/17/2020 06:39:00 PM EDT [facility] Name Value Range Interpretation Code Description Data Stephanie e(s) Supporting Document(s) WBC 6.99 x10E3/uL 4.0-10.5 [facility] RBC 4.51 x10E6/uL 4.20-5.40 [facility] Hemoglobin 13.0 g/dL 12.0-16.0 [facility] Hematocrit 39.4 % 37.0-47.0 [facility] MCV 87.4 fL 81.0-99.0 [facility] MCH 28.8 pg 27.0-31.0 [facility] MCHC 33.0 g/dL 32.7-35.6 [facility] RDW 12.7 % 11.5-14.0 [facility] Platelet count 260 x10E3/uL 150-450 [facility] ital MPV 9.5 fl 6.9-9.5 [facility] Neutrophils 53.5 % 34-64 [facility] Lymphocytes 38.1 % 25-45 [facility] Monocytes 6.9 % 1.7-10.6 [facility] Eosinophils 0.9 % 0.4-7.0 [facility] Basophils 0.3 % 0.1-2.0 [facility] Imm. Gran. 0.3 % 0.1-2.0 [facility] Abs. Neutro. 3.75 x10E3/uL 1.2-7.6 [facility] [place] Abs. Lymph. 2.66 x10E3/uL 1.0-3.5 [facility] Abs. Bryan. 0.48 x10E3/uL 0.1-1.0 [facility] Abs. Eosin. 0.06 x10E3/uL 0.1-0.7 [facility] Abs. Baso. 0.02 x10E3/uL 0.0-0.1 [facility] Abs. Imm. Gran. 0.02 x10E3/uL 0.0-0.1 [facility] ANRBC% 0 % 0 [facility] ID Date Data Source [id number] 04/17/2020 05:59:00 PM EDT [facility] [place] [address] [address] [id number] REPORTPATIENT NAME: YARELI HATCH MR#: [id number] PHYSICIAN: ANGELA VELAZQUEZONSULTING PHYSICIAN: Theresa Chowdhury DATE: 02/15/20 RM#: [id number] DATE: 04/17/20 : 00EVALUATION TIME: 1803HistoryReason for consultABD PainRequested byDr. ModiChief Complaint/Admit ReasonSuicidial thoughts, anxiety and depressionHistory of Presenting IllnessConsult for abdominal pain. Patient reports daily abdominal pain going on "forsome time". She reports N/V but not witnessed by nursing. She reports no feveror chills or focal pain in her abdomen. No history of IBS or functional GIillness. U/S was done yesterday showing FLD but no acute disease. She is quiteobese and has been eating extremely large portions per nursing staff. I willget basic lab work including a1c (gastroparesis), CBC, CMP, lipase. Her abdomenexam is very benign. This seems to be more eating habit related then a organicproblem but will wait for lab results.ROS difficult given her personality and anxiety, as above o/w negative.Past Medical/Surgical HistoryPast Medical/Surgical HistoryMedical ProblemsAbdominal painAllergic rhinitisBipolar affective disorderBipolar disorderBipolar disorder, manicBorderline personality disorderMajor depressive disorder (Acute)Right ankle painSuicide attempt (Acute)URI (upper respiratory infection)Reconciled Home Med ListPSH denies.AllergiesCoded Allergies:risperidone (08/04/19)Family history " no problems" limited by mental statusSocial History no tobacco use, no alcohol use, no recreational drug useReview of SystemsSystems reviewed and negative Constitutional, Integumentary, Eyes, ENT,Respiratory, Cardiovascular, , Musculoskeletal, Mario, Endocrine, Neurology,Psych, Allergy/ImmunologyGastrointestinalReports: abdominal pain.ExamVital SignsVital Signs-LastResult Date TimeTemp 97.4 04/17 0723Pulse Ox 98 04/16 1100B/P 121/82 04/16 1100Pulse 81 04/16 1100Resp 18 04/16 1100Physical ExaminationGeneral Appearance no acute distress, afebrile, alert, awakeHead atraumatic, normocephalicENT moist mucosal membranesCardiovascular regular rate, no murmurRespiratory clear to auscultation, no distressAbdomen soft, non-tender, no distention, obese. no rebound no gaurding duringdeep palpation.Abdominal quadrantsall normal bowel soundsExtremities no clubbing, no cyanosis, no edema, normal pulsesMuscoskeletal full range of motion, normal inspectionNeurological alert, oriented x 3, normal cerebellar functio, normal gait,normal speech, no motor deficits, no sensory deficitsSkin AssessmentSkin dry, intactLymphatic no lymphadenopathyPsych/Mental Status abnormal judgement, abnormal insight, anxiousData ReviewLaboratory Datapending.ImagingEXAM# TYPE/EXAM [id number] US/U/S COMPLETE UPPER ABDOMENDATE OF EXAMINATION: 04/17/2020 8:00 EDTU/S COMPLETE UPPER ABDOMENCOMPARED TO: No priorsHISTORY: PainReal-time ultrasound imaging was performed utilizing B-mode/busch scaleand color Doppler imaging where applicable.Mild fatty infiltration of liver with mild hepatomegaly at 17.4 cm isnoted. There is no intra or extrahepatic biliary dilation. Thegallbladder appears normal, revealing no signs of gallstones orgallbladder wall thickening. The common bile duct measures 2 mm. Theright kidney measures 12 cm and the left kidney measures 13 cmlongitudinally. Both kidneys display normal homogeneous echotexturethroughout and show no hydronephrosis. The visualized portions of thepancreas, the abdominal aorta and IVC are normal in appearance.IMPRESSION:Splenomegaly with spleen measuring 15 cm in its craniocaudaddimension.Mild fatty infiltration of liver.Asse ssment/PlanDiagnosis/Problem1. Major depressive disorderStatus Acute2. Suicide attemptStatus Acute3. Bipolar affective disorderA&Pabove to behest of psychiatry.4. Abdominal painA&PLikely habit related over eating w/ bloating and discomfort. Awaiting labs. U/Sunrevealing save FLD expected for her size and weight.Additional NotesTotal time spent 25mWill follow up results in am. Abnormals will be called to night service d/wnursing staff.Resuscitation status Full codePlan discussed with patientCase discussed with case management assistant, nursing staffDATE SIGNED: 04/17/20 Electronically SignedTIME SIGNED: 1806 THERESA PRASAD SPANGLER Name Value Range Interpretation Code Description Data Stephanie rce(s) Supporting Document(s) ID Date Data Source [id number] 04/17/2020 01:29:00 PM EDT [address] HEALTH PROGRESS NOTEPATIENT NAME: YARELI HATCH PHYSICIAN: BOGDAN ALMAGUER MDAUTHOR: Colleen SMITH,Sarahy. DATE: 02/15/20 MR#: [id number] NOTE DATE: 04/17/20 RM#: [id number] TIME: 1331 is 19-year-old female, currently single, lives in a motel,past psych history of bipolar disorderCC/Hx Present IllnessThe patient was referred for evaluation because pt having suicidal ideations.Events Since Last EntryPatient reporting having better mood, stating that she feels comfortable aboutcontinuing current medication, she stated that she continue Prozac medicationas well as Topamax medication as well. She denied having any suicidal,homicidal ideation, stating that she is in pleasant mood and expressed andwanting to maintain her safety as well. Later on patient stated that she isopen to go to her friend's place and she just wanted to have his number from[place] which we discussed with the patient about providing the resources toget that number as well.Mental status examination: Patient was alert, oriented with a place, person,appeared somewhat pleasant, speech remains slightly elevated, mood was better,affect was slightly elevated, thought process was mostly organized, thoughtcontent denied having any suicidal, homicidal ideations, denied having anyauditory visual hallucinations, denied delusions, attention concentrationlimited, insight and judgment appeared limited/improved as wellPlan: Consider to continue current treatment plan, monitoring for patientsafety, discussed with the patient regarding safe discharge plan and continuingcurrent medication which patient agreed as well. Denied having any suicidalthoughts.ObjectiveVital SignsVital Signs-LastResult Date TimeTemp 97.4 04/17 0723Pulse Ox 98 04/16 1100B/P 121/82 04/16 1100Pulse 81 04/16 1100Resp 18 04/16 1100Current MedicationsLoperamide HCl (Imodium) 2 MG Q2HPRN PRN POSimethicone (Mylicon) 120 MG QIDPRN PRN POAcetaminophen (Tylenol) 650 MG Q4HPRN PRN POAcetaminophen (Tylenol) 650 MG Q4HPRN PRN POAl Hydrox/Mg Hydrox/Simethicone (Maalox) 15 ML QIDPRN PRN POHydroxyzine (Atarax) 50 MG Q4HPRN PRN POMagnesium Hydroxide (Mom) 10 ML QHSPRN PRN POTrazodone HCl (Desyrel) 50 MG QHSPRN PRN POFluoxetine HCl (Prozac) 20 MG DAILY POTopiramate (Topamax) 50 MG BID POLoratadine (Claritin) 10 MG DAILY POPatient Own Medication (PT'S OWN MED) 400 DOSE Q28D IMBenzocaine/Pectin/Carboxymethylcell (Cepastat) 1 JHOAN Q2HPRN PRN POClotrimazole (Clotrimazole) 0 DIRECTED TOPNasal Lubricant (Saline Nasal [place]) 0 Q3HPRN PRN NASALExaminationMusculoskeletalGait normalStation normalResultsResults Ordered/ReviewedLab Tests reviewedAssessment/PlanDiagnosis1. Bipolar disorder, manicCoordination of care provided with nursing staff, treatment teamRisk/benefits discussed side effectsJustification for continued stay danger to self/others, behavior intolerableDATE SIGNED: 04/17/20 Electronically SignedTIME SIGNED: 1330 BOGDAN ALMAGUER MD Name Value Range Interpretation Code Description Data Stephanie rce(s) Supporting Document(s) ID Date Data Source [id number] 04/17/2020 01:00:00 PM EDT [facility] Exam Number: [id number] OF EXAMINATIO N: 04/17/2020 8:00 EDTU/S COMPLETE UPPER ABDOMENCOMPARED TO: No priorsHISTORY: PainReal-time ultrasound imaging was performed utilizing B-mode/busch scaleand color Doppler imaging where applicable.Mild fatty infiltration of liver with mild hepatomegaly at 17.4 cm isnoted. There is no intra or extrahepatic biliary dilation. Thegallbladder appears normal, revealing no signs of gallstones orgallbladder wall thickening. The common bile duct measures 2 mm. Theright kidney measures 12 cm and the left kidney measures 13 cmlongitudinally. Both kidneys display normal homogeneous echotexturethroughout and show no hydronephrosis. The visualized portions of thepancreas, the abdominal aorta and IVC are normal in appearance.IMPRESSION:Splenomegaly with spleen measuring 15 cm in its craniocaudaddimension.Mild fatty infiltration of liver.Electronically signed in PS360 by: Brennan Christian M.D. 04/17/202012:53 EDT Reported By: Maria De Jesus CHRISTIAN M.D. Signed By: Corrie CHRISTIAN M.D. Name Value Range Interpretation Code Description Data Stephanie rce(s) Supporting Document(s) ID Date Data Source [id number] 04/16/2020 01:31:00 PM EDT [facility] [address] HEALTH PROGRESS NOTEPATIENT NAME: YARELI HATCH CATTENGIOVANNY PHYSICIAN: BOGDAN ALMAGUER MDAUTHOR: Colleen SMITH,DhruvADM. DATE: 02/15/20 MR#: [id number] NOTE DATE: 04/16/20 RM#: [id number] TIME: 1336 is 19-year-old female, currently single, lives in a motel,past psych history of bipolar disorderCC/Hx Present IllnessThe patient was referred for evaluation because pt having suicidal ideations.Events Since Last EntryPatient reporting that her mood is still down, still experiencing somedepression, reporting that she has been doing okay otherwise, she alsoexpressed to maintain safe behavior on the unit and she also open to continuetaking her medication as well. Discussed with the patient about needed recentProzac medication and related effect on her mood as well. Patient denieshaving any medical issues as well.Mental status examination: Patient was alert, oriented with a place, person,appeared somewhat distracted, slightly anxious, her speech remained softer,mood is okay, affect was constricted, thought process was superficiallyorganized, thought content denied having any suicidal, homicidal ideations,denied having any auditory disease, denied having any delusions, attentionconcentration limited, insight and judgment appeared limited as well, stablegaitPlan: Consider to continue current treatment plan, no medication changes, atthis point we are monitoring for her safety, also working on safe dischargeplan and we have also sent a referral to a [facility] for further stabilization if incase patient not doing well down the road.ObjectiveVital SignsVital Signs-LastResult Date TimePulse Ox 98 04/16 1100B/P 121/82 04/16 1100Temp 97.3 04/16 1100Pulse 81 04/16 1100Resp 18 04/16 1100Current MedicationsLoperamide HCl (Imodium) 2 MG Q2HPRN PRN POSimethicone (Mylicon) 120 MG QIDPRN PRN POAcetaminophen (Tylenol) 650 MG Q4HPRN PRN POAcetaminophen (Tylenol) 650 MG Q4HPRN PRN POAl Hydrox/Mg Hydrox/Simethicone (Maalox) 15 ML QIDPRN PRN POHydroxyzine (Atarax) 50 MG Q4HPRN PRN POMagnesium Hydroxide (Mom) 10 ML QHSPRN PRN POTrazodone HCl (Desyrel) 50 MG QHSPRN PRN POFluoxetine HCl (Prozac) 20 MG DAILY POTopiramate (Topamax) 50 MG BID POLoratadine (Claritin) 10 MG DAILY POPatient Own Medication (PT'S OWN MED) 400 DOSE Q28D IMBenzocaine/Pectin/Carboxymethylcell (Cepastat) 1 JHOAN Q2HPRN PRN POClotrimazole (Clotrimazole) 0 DIRECTED TOPNasal Lubricant (Saline Nasal [place]) 0 Q3HPRN PRN NASALIbuprofen (Motrin) 600 MG Q6HPRN PRN POExaminationMusculoskeletalGait normalStation normalResultsResults Ordered/ReviewedLab Tests reviewedAssessment/PlanDiagnosis1. Bipolar disorder, manicCoordination of care provided with nursing staff, treatment teamRisk/benefits discussed side eff ectsJustification for continued stay danger to self/othersDATE SIGNED: 04/16/20 Electronically SignedTIME SIGNED: 1336 BOGDAN ALMAGUER MD Name Value Range Interpretation Code Description Data Stephanie rce(s) Supporting Document(s) ID Date Data Source [id number] 04/15/2020 11:11:00 AM EDT [address] HEALTH PROGRESS NOTEPATIENT NAME: YARELI HATCH PHYSICIAN: BOGDAN ALMAGUER MDAUTHOR: Colleen SMITH,DhruvADM. DATE: 02/15/20 MR#: [id number] NOTE DATE: 04/15/20 RM#: [id number] TIME: 1114 is 19-year-old female, currently single, lives in a motel,past psych history of bipolar disorderCC/Hx Present IllnessThe patient was referred for evaluation because pt having suicidal ideations.Events Since Last EntryPatient reporting feeling somewhat okay, she was also apologizing for herreaction and behavior which we discussed with the patient about continueworking on her coping skills as well. Patient talked about some of her copingskills such as painting, journaling and listening music u as well. Patientalso talked about p continuing current medication as well. She also expressedthat she will maintain safe behavior on the unit which we encouraged thepatient as well. Patient denies having any medical issues at this point,working on safe discharge plan as well.Mental status examination: Patient was alert, oriented with a place, person,appeared somewhat anxious, somewhat emotional, her speech remain slightlypressured, mood is okay, affect was constricted, thought process wassuperficially organized, thought content denied having any suicidal, homicidalideations, denied having any auditory visual hallucinations, attentionconcentration limited, insight and judgment appear limited, stable gaitPlan: Consider to continue current treatment plan, at this point we took heroff from one-to-one close observation as patient denies having any currentsuicidal thoughts and expressing to maintain safe behavior on the unit as well.Patient also discussed regarding using her coping skills and reaching out tot nurses and staff as well. Encouraged her to take current psychotropicmedication and strongly recommended Prozac medication for underlying impulsecontrol as well as mood symptoms as well.ObjectiveVital SignsVital Signs-LastResult Date TimeTemp 97.1 04/15 0647Pulse Ox 100 04/13 1 100B/P 129/62 04/13 1100Pulse 91 04/13 1100Resp 15 04/13 1100Current MedicationsAcetaminophen (Tylenol) 650 MG Q4HPRN PRN POAcetaminophen (Tylenol) 650 MG Q4HPRN PRN POAl Hydrox/Mg Hydrox/Simethicone (Maalox) 15 ML QIDPRN PRN POHydroxyzine (Atarax) 50 MG Q4HPRN PRN POMagnesium Hydroxide (Mom) 10 ML QHSPRN PRN POTrazodone HCl (Desyrel) 50 MG QHSPRN PRN POFluoxetine HCl (Prozac) 20 MG DAILY POTopiramate (Topamax) 50 MG BID POLoratadine (Claritin) 10 MG DAILY POPatient Own Medication (PT'S OWN MED) 400 DOSE Q28D IMBen zocaine/Pectin/Carboxymethylcell (Cepastat) 1 JHOAN Q2HPRN PRN POClotrimazole (Clotrimazole) 0 DIRECTED TOPNasal Lubricant (Saline Nasal [place]) 0 Q3HPRN PRN NASALIbuprofen (Motrin) 600 MG Q6HPRN PRN POExaminationMusculoskeletalGait normalStation normalResultsResults Ordered/ReviewedLab Tests reviewedAssessment/PlanDiagnosis1. Bipolar disorder, manicCoordination of care provided with nursing staff, treatment teamRisk/benefits discussed side effectsDATE SIGNED: 04/15/20 Electronically SignedTIME SIGNED: 1114 BOGDAN ALMAGUER MD Name Value Range Interpretation Code Description Data Stephanie rce(s) Supporting Document(s) ID Date Data Source [id number] 04/14/2020 12:01:00 PM EDT [address] HEALTH PROGRESS NOTEPATIENT NAME: YARELI HATCH PHYSICIAN: BOGDAN ALMAGUER MDAUTHOR: Colleen SMITH,DhruvADM. DATE: 02/15/20 MR#: [id number] NOTE DATE: 04/14/20 RM#: [id number] TIME: 1203 is 19-year-old female, currently single, lives in a motel,past psych history of bipolar disorderCC/Hx Present IllnessThe patient was referred for evaluation because pt having suicidal ideations.Events Since Last EntryPatient was seen on other side where she was sleeping, currently she is on one-to-one due to recent suicidal ideation and unsafe gesture reported yesterdayand patient's ability to maintain her safety and others as well. Patient alsowoke up later on reporting feeling okay, she understands maintaining her safetyat this point, discussed with the patient about current treatment plan as welland discussed with the nurses and staff regarding monitoring her safety due torecent concern about her ability to maintain safety. Denied having anyauditory visual hallucinations.Mental status examination: Patient was alert, oriented with a place, person,she was sleeping but later on arousable, denied having any direct suicidal,homicidal ideations, attention concentration limited, insight and maximo gmentappeared impaired, poor impulse control, denied having any auditory visualhallucination, affect was constrictedPlan: Consider to continue current treatment plan, patient received AbilifyMaintena injection for better compliance, currently monitoring for her safety,continue one-to-one due to recent safety concern due to patient unsafe gestureand suicidal ideation reported.ObjectiveVital SignsVital Signs-LastResult Date TimePulse Ox 100 04/13 1100B/P 129/62 04/13 1100Temp 97.7 04/13 1100Pulse 91 04/13 1100Resp 15 04/13 1100Current MedicationsAcetaminophen (T ylenol) 650 MG Q4HPRN PRN POAcetaminophen (Tylenol) 650 MG Q4HPRN PRN POAl Hydrox/Mg Hydrox/Simethicone (Maalox) 15 ML QIDPRN PRN POHydroxyzine (Atarax) 50 MG Q4HPRN PRN POMagnesium Hydroxide (Mom) 10 ML QHSPRN PRN POTrazodone HCl (Desyrel) 50 MG QHSPRN PRN POFluoxetine HCl (Prozac) 20 MG DAILY POTopiramate (Topamax) 50 MG BID POLoratadine (Claritin) 10 MG DAILY POPatient Own Medication (PT'S OWN MED) 400 DOSE Q28D IMBenzocaine/Pectin/Carboxymethylcell (Cepastat) 1 JHOAN Q2HPRN PRN POClotrimazole (Clotrimazole) 0 DIRECTED TOPNasal Lubricant (Saline Nasal [place]) 0 Q3HPRN PRN NASALIbuprofen (Motrin) 600 MG Q6HPRN PRN POAcetaminophen (Tylenol) 650 MG Q4HPRN PRN POAcetaminophen (Tylenol) 650 MG Q4HPRN PRN POAl Hydrox/Mg Hydrox/Simethicone (Maalox) 15 ML QIDPRN PRN POHydroxyzine (Atarax) 50 MG Q4HPRN PRN POMagnesium Hydroxide (Mom) 10 ML QHSPRN PRN POTrazodone HCl (Desyrel) 50 MG QHSPRN PRN POExaminationMusculoskeletalGait normalStation normalResultsResults Ordered/ReviewedLab Tests reviewedAssessment/PlanDiagnosis1. Bipolar disorder, manicCoordination of care provided with nursing staff, treatment teamRisk/benefits discussed side effectsDATE SIGNED: 04/14/20 Electronically SignedTIME SIGNED: 1203 BOGDAN ALMAGUER MD Name Value Range Interpretation Code Description Data Stephanie rce(s) Supporting Document(s) ID Date Data Source [id number] 04/12/2020 11:39:00 AM EDT [place] [id number] HEALTH PROGRESS NOTEPATIENT NAME: YARELI HATCH CATTENGIOVANNY PHYSICIAN: BOGDAN ALMAGUER MDAUTHOR: Colleen SMITH,DhruvADM. DATE: 02/15/20 MR#: [id number] NOTE DATE: 04/12/20 RM#: [id number] TIME: 1141 is 19-year-old female, currently single, lives in a motel,past psych history of bipolar disorderCC/Hx Present IllnessThe patient was referred for evaluation because pt having suicidal ideations.Events Since Last EntryPatient reporting feeling somewhat okay, she stated that at this point shefeels comfortable [facility] back [facility] as well as, discussed with the patientabout [facility] as well due to ongoing mood symptoms as well as recentsuicidal and unsafe behavior as well. Discussed with the patient aboutmedication risk, alternatives and benefits, patient stated that she does notfeel comfortable taking Topamax medication and we discontinued or lowered downat this point as well. Patient expressed to maintain safe behavior on theunit.Mental status examination: Patient was alert, oriented with a place, person,appeared somewhat distracted, poor impulse control, her speech remainedsomewhat pressured rapid, mood was okay, affect was elevated, thought processwas mostly circumstantial, thought content denied having any suicidal,homicidal ideations, denied having any auditory visual hallucinations, denieddelusions, attention concentration limited, insight and judgment appearedlimited as wellPlan: Consider to continue current treatment plan, monitoring for patientsafety, discussed with the patient regarding her ability to maintain her safetyand others as well, discussed with the behavioral plan as well and also patientwanting to have her Topamax medication to be cut down or discontinued which wediscussed about withdrawal potential and cutting down medication from 100 mg to50 mg twice a day at this point as well. Patient has received Abilify Maintenainjection as well.ObjectiveVital SignsVital Signs-LastResult Date TimeTemp 97.3 04/12 0630Pulse Ox 98 04/11 1100B/P 133/77 04/11 1100Pulse 79 04/11 1100Resp 18 04/11 1100Current MedicationsTopiramate (Topamax) 50 MG BID POLoratadine (Claritin) 10 MG DAILY POPatient Own Medication (PT'S OWN MED) 400 DOSE Q28D IMBenzocaine/Pectin/Carboxymethylcell (Cepastat) 1 JHOAN Q2HPRN PRN POClotrimazole (Clotrimazole) 0 DIRECTED TOPNasal Lubricant (Saline Nasal [place]) 0 Q3HPRN PRN NASALIbuprofen (Motrin) 600 MG Q6HPRN PRN POAcetaminophen (Tylenol) 650 MG Q4HPRN PRN POAcetaminophen (Tylenol) 650 MG Q4HPRN PRN POAl Hydrox/Mg Hydrox/Simethicone (Maalox) 15 ML Q IDPRN PRN POHydroxyzine (Atarax) 50 MG Q4HPRN PRN POMagnesium Hydroxide (Mom) 10 ML QHSPRN PRN POTrazodone HCl (Desyrel) 50 MG QHSPRN PRN POExaminationMusculoskeletalGait normalStation normalResultsResults Ordered/ReviewedLab Tests reviewedAssessment/PlanDiagnosis1. Bipolar disorder, manicCoordination of care provided with nursing staff, treatment teamRisk/benefits discussed side effectsDATE SIGNED: 04/12/20 Electronically SignedTIME SIGNED: 1141 BOGDAN ALMAGUER MD Name Value Range Interpretation Code Description Data Stephanie rce(s) Supporting Document(s) ID Date Data Source [id number] 04/11/2020 01:20:00 PM EDT [address] HEALTH PROGRESS NOTEPATIENT NAME: YARELI HATCH PHYSICIAN: BOGDAN ALMAGUER MDAUTHOR: Colleen SMITH,DhruvADM. DATE: 02/15/20 MR#: [id number] NOTE DATE: 04/11/20 RM#: [id number] TIME: 1323 is 19-year-old female, currently single, lives in a motel,past psych history of bipolar disorderCC/Hx Present IllnessThe patient was referred for evaluation because pt having suicidal ideations.Events Since Last EntryPatient still appeared somewhat irritable and at times expressing labile moodas well. There was also concern reported by staff regarding patient recentaggravating behavior on the unit but she was trying to take away stuff fromother patients such as food and there activities book as well. There weretimes patient has been involved in verbal altercation along with at timesobserved threatening as well as showing unsafe behavior towards other patientas well. We discussed with the patient about behavioral contract that shewould be encourage to maintain safe behavior and limiting her stimulation onthe unit which has been a major problem as well. We also discussed with thepatient about long-term psychiatric care due to significant ongoing mentalhealth issues which patient appeared upset regarding that as well. No medicalissues reported. Discussed with the patient about expressing safe behavior onthe unit.Mental status examination: Patient was alert, oriented with a place, person,appeared irritable, somewhat upset, her speech remained pressured rapid, attimes using cursing words, affect was elevated, thought process wascircumstantial, thought content denied direct suicidal, homicidal ideations,somewhat delusional thoughts observed, attention concentration limited, deniedhaving any auditory visual hallucinations, insight and judgment appearedimpairedPlan: Consider to continue current treatment plan at this point we discussedwith the patient regarding [facility] transfer for further stabilization due tosignificant ongoing mental health symptoms as well as patient's ability tomaintain her safety and others. Also working on safe discharge plan outside,educated her about behavioral contract and expressed to maintain her safety aswell. Recommended continuing Topamax medication and p atient also receivedAbilify Maintena injection as well.ObjectiveVital SignsVital Signs-LastResult Date TimePulse Ox 98 04/11 1100B/P 133/77 04/11 1100Temp 97.4 04/11 1100Pulse 79 04/11 1100Resp 18 04/11 1100Current MedicationsTopiramate (Topamax) 100 MG BID POLoratadine (Claritin) 10 MG DAILY POPatient Own Medication (PT'S OWN MED) 400 DOSE Q28D IMBenzocaine/Pectin/Carboxymethylcell (Cepastat) 1 JHOAN Q2HPRN PRN POClotrimazole (Clotrimazole) 0 DIRECTED TOPNasal Lubricant (Saline Nasal [place]) 0 Q3HPRN PRN NASALIbuprofen (Motrin) 600 MG Q6HPRN PRN POAcetaminophen (Tylenol) 650 MG Q4HPRN PRN POAcetaminophen (Tylenol) 650 MG Q4HPRN PRN POAl Hydrox/Mg Hydrox/Simethicone (Maalox) 15 ML QIDPRN PRN POHydroxyzine (Atarax) 50 MG Q4HPRN PRN POMagnesium Hydroxide (Mom) 10 ML QHSPRN PRN POTrazodone HCl (Desyrel) 50 MG QHSPRN PRN POExaminationMusculoskeletalGait normalStation normalResultsResults Ordered/ReviewedLab Tests reviewedAssessment/PlanDiagnosis1. Bipolar disorder, manicCoordination of care provided with nursing staff, treatment teamRisk/benefits discussed side effectsDATE SIGNED: 04/11/20 Electronically SignedTIME SIGNED: 1323 BOGDAN ALMAGUER MD Name Value Range Interpretation Code Description Data Stephanie rce(s) Supporting Document(s) ID Date Data Source [id number] 04/10/2020 01:13:00 PM EDT [place] [id number] HEALTH PROGRESS NOTEPATIENT NAME: YARELI HATCH PHYSICIAN: BOGDAN ALMAGUER MDAUTHOR: Colleen SMITH,DhruvADM. DATE: 02/15/20 MR#: [id number] NOTE DATE: 04/10/20 RM#: [id number] TIME: 1317 is 19-year-old female, currently single, lives in a motel,past psych history of bipolar disorderCC/Hx Present IllnessThe patient was referred for evaluation because pt having suicidal ideations.Events Since Last EntryPatient reporting emotionally upset, and also showing poor insight regardingher treatment plan as well. Information from yesterday evening noted thatpatient was significantly irritable, agitated and i also tried to break thewindow and needing as needed medication for her safety as well. Lately patientbehavior has been going up and down with her ability to maintain safety aswell. Patient still expressing unstable mood with reporting some suicidalideation and does not feel comfortable about her discharge plan at this pointas well. We will try to discuss with the patient about behavioral contract aswell as 6-month retention for safe discharge plan as well.Mental status examination: Patient was alert, oriented with a place, person,still appeared irritable, elevated mood, her spee ch remained pressured rapid,thought process was mostly circumstantial and loose, thought content deniedhaving any homicidal ideation, still concerned about her ability to maintainsafety, denied having any auditory visual hallucinations, attentionconcentration limited, insight and judgment appeared impaired and poor impulsecontrol as well. Also observed borderline but below averageintellectualization.Plan: Consider to continue current treatment plan, patient is recommended [facility] in 6 months retention due to ongoing concern about her ability to maintainsafety, at the same time for a safe discharge plan we will also monitor herclosely and discussed with her regarding behavioral contract. No medicationchanges as patient is received Abilify Maintena injection and also gettingTopamax medication as well.ObjectiveVital SignsVital Signs-LastResult Date TimeTemp 97.0 04/10 0632B/P 124/83 04/08 1044Pulse 99 04/08 1044Resp 18 04/08 1044Pulse Ox 99 04/07 1500Current MedicationsLoratadine (Claritin) 10 MG DAILY POTopiramate (Topamax) 50 MG BID POPatient Own Medication (PT'S OWN MED) 400 DOSE Q28D IMBenzocaine/Pectin/Carboxymethylcell (Cepastat) 1 JHOAN Q2HPRN PRN POClotrimazole (Clotrimazole) 0 DIRECTED TOPNasal Lubricant (Saline Nasal [place]) 0 Q3HPRN PRN NASALIbuprofen (Motrin) 600 MG Q6HPRN PRN POAcetaminophen (Tylenol) 650 MG Q4HPRN PRN POAcetaminophen (Tylenol) 650 MG Q4HPRN PRN POAl Hydrox/Mg Hydrox/Simethicone (Maalox) 15 ML QIDPRN PRN POHydroxyzine (Atarax) 50 MG Q4HPRN PRN POMagnesium Hydroxide (Mom) 10 ML QHSPRN PRN POTrazodone HCl (Desyrel) 50 MG QHSPRN PRN POExaminationMusculoskeletalGait normalStation normalResultsResults Ordered/ReviewedLab Tests reviewedAssessment /PlanDiagnosis1. Bipolar disorder, manicCoordination of care provided with nursing staff, treatment teamRisk/benefits discussed side effectsDATE SIGNED: 04/10/20 Electronically SignedTIME SIGNED: 1317 BOGDAN ALMAGUER MD Name Value Range Interpretation Code Description Data Stephanie rce(s) Supporting Document(s) ID Date Data Source [id number] 04/09/2020 01:48:00 PM EDT [address] HEALTH PROGRESS NOTEPATIENT NAME: YARELI HATCH PHYSICIAN: BOGDAN ALMAGUER MDAUTHOR: Colleen SMITH,DhruvADM. DATE: 02/15/20 MR#: [id number] NOTE DATE: 04/09/20 RM#: [id number] TIME: 1353 is 19-year-old female, currently single, lives in a [facility],past psych history of bipolar disorderCC/Hx Present IllnessThe patient was referred for evaluation because pt having suicidal ideations.Events Since Last EntryPatient was somewhat upset later on expressing that she wanted to stay here andshe does not feel comfortable going to [facility] she came from as well. Wediscussed with the patient about other options and other possibility regardinga different place to stay and also discussed with the patient about thereferral being sent and so far she has not been accepted to any other place aswell. Patient was also offered DSS option as well as other motives whichpatient does not feel comfortable going to, patient was also stating that shewould like to stay here as she is currently suicidal and and not doing well.Some of the patient concerns appear to be behavioral and needing chronic long-term behavioral treatment which would be beneficial which we will try todiscuss with the patient as well. Patient later on worked out from theevaluation getting upset and irritable as well. Currently denying having anymedical issues.Mental status examination: Patient was alert, oriented with a place, person,appeared irritable, somewhat impulsive, her speech remained pressured and rapid, mood was irritable, affect was elevated, thought process was mostly organized, thought content some questionable suicidal ideation reported without any plan, homicidal ideations, denied delusions, attention and concentration limited,insight and judgment appeared limited as wellPlan: Consider to continue current treatment plan, at this point patient willbe offered voluntary hospitalization and some of the patient behavior and thesymptoms related to underlying chronic personality disorder and needing furtherlong-term behavioral treatment as well. Offered all available options as wellas patient seems to have some sort [facility] Offered patient all available options which [facility] seems to be refusingand some of other places patient was not accepted due to prior history as well.At this point [facility] also involved, also planning to add voluntaryhospitalization and providing all [facility] Discussed with the patient about maintaining her safety and controllingher behavior and try to assess her every possible way.ObjectiveVital SignsVital Signs-LastResult Date TimeTemp 96.5 04/09 0745B/P 124/83 04/08 1044Pulse 99 04/08 1044Resp 18 04/08 1044Pulse Ox 99 04/07 1500Current MedicationsLoratadine (Claritin) 10 MG DAILY POTopiramate (Topamax) 50 MG BID POPatient Own Medication (PT'S OWN MED) 400 DOSE Q28D IMBenzocaine/Pectin/Carboxymethylcell (Cepastat) 1 JHOAN Q2HPRN PRN POClotrimazole (Clotrimazole) 0 DIRECTED TOPNasal Lubricant (Saline Nasal [place]) 0 Q3HPRN PRN NASALIbuprofen (Motrin) 600 MG Q6HPRN PRN POAcetaminophen (Tylenol) 650 MG Q4HPRN PRN PO Acetaminophen (Tylenol) 650 MG Q4HPRN PRN POAl Hydrox/Mg Hydrox/Simethicone (Maalox) 15 ML QIDPRN PRN POHydroxyzine (Atarax) 50 MG Q4HPRN PRN POMagnesium Hydroxide (Mom) 10 ML QHSPRN PRN POTrazodone HCl (Desyrel) 50 MG QHSPRN PRN POExaminationMusculoskeletalGait normalStation normalResultsResults Ordered/ReviewedLab Tests reviewedAssessment/PlanDiagnosis1. Bipolar disorder, manicCoordination of care provided with nursing staff, treatment teamRisk/benefits discussed side effectsDATE SIGNED: 04/09/20 Electronically SignedTIME SIGNED: 1353 BOGDAN ALMAGUER MD Name Value Range Interpretation Code Description Data Stephanie rce(s) Supporting Document(s) ID Date Data Source [id number] 04/08/2020 03:04:00 PM EDT [address] HEALTH PROGRESS NOTEPATIENT NAME: YARELI HATCH PHYSICIAN: BOGDAN ALMAGUER MDAUTHOR: Colleen SMITH,DhruvADM. DATE: 02/15/20 MR#: [id number] NOTE DATE: 04/08/20 RM#: [id number] TIME: 1506 is 19-year-old female, currently single, lives in a motel,past psych history of bipolar disorderCC/Hx Present IllnessThe patient was referred for evaluation because pt having suicidal ideations.Events Since Last EntryAccording to information obtained, patient remained significantly irritable,agitated, also threatening on the unit as well as there was concern about herability to maintain safety and others as well. There was chemical restraint aswell as mechanical restraint issued due to patient ability to maintain safetyas well. Discussed with the patient about maintaining safe behavior whichpatient did not feel comfortable providing us answer regarding as well.Patient denied having any physical distress while patient was seen in restraint, and patient was mostly focused on other people as well as other patients andthe staff member as well.Mental status examination: Patient was alert, oriented with a place, person,appeared irritable, somewhat agitated, her speech remained pressured rapid,mood was irritable, affect was elevated, thought process was somewhatcircumstantial, thought content denied having any auditory visualhallucinations, concerned about patient's ability to maintain her safety andothers, attention concentration poor, insight and judgment appeared impairedPlan: Consider to continue current treatment plan, at this point patient isplaced on Abilify Maintena injection and discontinued most of all othermedications due to concern about patient compliance issue as well as mostly thepatient symptoms associated with her underlying behavioral disorder as well.Recommended working on safe discharge planning possible safe discharge soon.ObjectiveVital SignsVital Signs-LastResult Date TimeB/P 124/83 04/08 1044Temp 98.7 04/08 1044Pulse 99 04/08 1044Resp 18 04/08 1044Pulse Ox 99 04/07 1500Current MedicationsLoratadine (Claritin) 10 MG DAILY POTopiramate (Topamax) 50 MG BID POPatient Own Medication (PT'S OWN MED) 400 DOSE Q28D IMBenzocaine/Pectin/Carboxymethylcell (Cepastat) 1 JHOAN Q2HPRN PRN POClotrimazole (Clotrimazole) 0 DIRECTED TOPNasal Lubricant (Saline Nasal [place]) 0 Q3HPRN PRN NASALIbuprofen (Motrin) 600 MG Q6HPRN PRN POAcetaminophen (Tylenol) 650 MG Q4HPRN PRN POAcetaminophen (Tylenol) 650 MG Q4HPRN PRN POAl Hydrox/Mg Hydrox/Simethicone (Maalox) 15 ML QIDPRN PRN POHydroxyzine (Atarax) 50 MG Q4HPRN PRN POMagnesium Hydroxide (Mom) 10 ML QHSPRN PRN POTrazodone HCl (Desyrel) 50 MG QHSPRN PRN POExaminationMusculoskeletalGait normalStation normalResultsResults Ordered/ReviewedLab Tests reviewedAssessment/PlanDiagnosis1. Bipolar disorder, manicCoordination of care provided with nursing staff, treatment teamRisk/benefits discussed side effectsDATE SIGNED: 04/08/20 Electronically SignedTIME SIGNED: 1506 BOGDAN ALMAGUER MD Name Value Range Interpretation Code Description Data Stephanie rce(s) Supporting Document(s) ID Date Data Source [id number] 04/05/2020 02:20:00 PM EDT [address] HEALTH PROGRESS NOTEPATIENT NAME: YARELI HATCH [facility] PH[facility]ICIAN: BOGDAN ALMAGUER MDAUTHOR: Pasquale WHITE,Ana. DATE: 02/15/20 MR#: [id number] NOTE DATE: 04/05/20 RM#: [id number] TIME: 1427 is 19-year-old female, currently single, lives in a motel,past psych history of bipolar disorderCC/Hx Present IllnessThe patient was referred for evaluation because pt having suicidal ideations.Events Since Last EntryI saw Ely on the day unit this morning. Was talking to a peer when sheinterrupted. I told her I would be with her shortly and she responded you aremad at me aren't you. I asked her why I would be mad at her and she saidbecause of her negative behaviors. I told her I would meet with her later shewas accepting of same. A few moments later as I was speaking to another peerYareli interrupted. The peer asked Yareli if she would wait until herconversation was finished. Yareli responded "fine you don't have to bebitchy about it." Yareli is smiling, loud, and intrusive with staff andpeers. I did not end up seeing her again during the shift as she was on thenight unit.ObjectiveVital SignsVital Signs-LastResult Date TimeTemp 97.1 04/05 0649Pulse Ox 98 04/04 1100B/P 130/88 04/04 1100Pulse 98 04/04 1100Resp 16 04/04 1100Current MedicationsTopiramate (Topamax) 50 MG BID POPatient Own Medication (PT'S OWN MED) 400 DOSE Q28D IMBenzocaine/Pectin/Carboxymethylcell (Cepastat) 1 JHOAN Q2HPRN PRN POClotrimazole (Clotrimazole) 0 DIRECTED TOPNasal Lubricant (Saline Nasal [place]) 0 Q3HPRN PRN NASALIbuprofen (Motrin) 600 MG Q6HPRN PRN POAcetaminophen (Tylenol) 650 MG Q4HPRN PRN POAcetaminophen (Tylenol) 650 MG Q4HPRN PRN POAl Hydrox/Mg Hydrox/Simethicone (Maalox) 15 ML QIDPRN PRN POHydroxyzine (Atarax) 50 MG Q4HPRN PRN POMagnesium Hydroxide (Mom) 10 ML QHSPRN PRN POTrazodone HCl (Desyrel) 50 MG QHSPRN PRN POExaminationMusculoskeletalGait normalSta tion normalMental Status ExaminationSpeech loudThought Process illogicalThought Content abnormalAssociations circumstantialAbnormal or Psychotic Thoughts no impairmentPatient's Judgement poorInsight poorReality Testing compromisedDecision Making Capacity compromisedMental StatusOrientation time, place, personRecent & Remote Memory intactFund of Knowledge: awareness of current events, past historyMood euphoric (inappropriately happy)Affect broad, expansiveResultsResults Ordered/ReviewedLab Tests reviewedAssessment/PlanDiagnosis1. Bipolar disorder, manicCoordination of care provided with nursing staff, treatment teamRisk/benefits discussed side effectsJustification for continued stay behavior intolerableDATE SIGNED: 04/05/20 Electronically SignedTIME SIGNED: 1427 FRANTZ GIORDANO Name Value Range Interpretation Code Description Data Stephanie rce(s) Supporting Document(s) ID Date Data Source [id number] 04/05/2020 01:38:00 PM EDT [address] [address] PROGRESS NOTEPATIENT NAME: YARELI HATCH PHYSICIAN: BOGDAN ALMAGUER MDAUTHOR: Colleen SMITH,Sarahy. DATE: 02/15/20 MR#: [id number] NOTE DATE: 04/05/20 RM#: [id number] TIME: 1342 is 19-year-old female, currently single, lives in a motel,past psych history of bipolar disorderCC/Hx Present IllnessThe patient was referred for evaluation because pt having suicidal ideations.Events Since Last EntryPatient remains significantly irritable, and also threatening to distrupt theunit as well as appeared significantly agitated and irritable later on as well.She was also observed threatening staff as well most of the patient behaviorappeared underlying behavioral issues as well as threatening to fulfill herdemands which were tried to addressed with verbal and nonescalating way butdoes attempt failed. According to information obtained while patient wasplaced under seclusion for her safety or others patient was also banging herhead and mechanical restraint was issued due to concern about patient's abilityto maintain safety. Patient was updated about the treatment plan and earlierwhen patient was feeling better we discussed with the patient about importanceof long-term compliance with injectable medication which patient agreed andpatient received Abilify Maintena injection today and discontinued all othermedication during this course of treatment.Mental status examination: Patient was alert, oriented with a place, person,significantly irritability and agitated behavior observed, her speech remainedloud and pressured, mood remained irritable, affect was elevated, thoughtprocess was somewhat circumstantial and loose, thought content concern abouther ability to maintain safety and others, insight and judgment appearedimpaired, did not report any auditory visual hallucination.Radha n: Consider to continue current treatment plan, at this point AbilifyMaintena injection that patient was on it before for better compliance wasinitiated and we are also working on safe discharge plan as well.ObjectiveVital SignsVital Signs-LastResult Date TimeTemp 97.1 04/05 0649Pulse Ox 98 04/04 1100B/P 130/88 04/04 1100Pulse 98 04/04 1100Resp 16 04/04 1100Current MedicationsTopiramate (Topamax) 50 MG BID POPatient Own Medication (PT'S OWN MED) 400 DOSE Q28D IMBenzocaine/Pectin/Carboxymethylcell (Cepastat) 1 JHOAN Q2HPRN PRN POClotrimazole (Clotrimazole) 0 DIRECTED TOPNasal Lubricant (Saline Nasal [place]) 0 Q3HPRN PRN NASALIbuprofen (Motrin) 600 MG Q6HPRN PRN POAcetaminophen (Tylenol) 650 MG Q4HPRN PRN POAcetaminophen (Tylenol) 650 MG Q4HPRN PRN POAl Hydrox/Mg Hydrox/Simethicone (Maalox) 15 ML QIDPRN PRN POHydroxyzine (Atarax) 50 MG Q4HPRN PRN POMagnesium Hydroxide (Mom) 10 ML QHSPRN PRN POTrazodone HCl (Desyrel) 50 MG QHSPRN PRN POExaminationMusculoskeletalGait normalAssessment/PlanDiagnosis1. Bipolar disorder, manicCoordination of care provided with nursing staff, treatment teamR isk/benefits discussed side effectsDATE SIGNED: 04/05/20 Electronically SignedTIME SIGNED: 1342 BOGDAN ALMAGUER MD Name Value Range Interpretation Code Description Data Stephanie rce(s) Supporting Document(s) ID Date Data Source [id number] 04/04/2020 01:16:00 PM EDT [address] HEALTH PROGRESS NOTEPATIENT NAME: DAMARISYARELI CAPELLAN PHYSICIAN: BOGDAN ALMAGUER MDAUTHOR: Colleen SMITH,DhruvADM. DATE: 02/15/20 MR#: [id number] NOTE DATE: 04/04/20 RM#: [id number] TIME: 1321 is 19-year-old female, currently single, lives in a motel,past psych history of bipolar disorderCC/Hx Present IllnessThe patient was referred for evaluation because pt having suicidal ideations.Events Since Last EntryPatient reported earlier to the practice coordinator regarding that she haddifficulty with her mood and yesterday she was trying to self-harm and she wasalso observed by 1 of the staff member and he did not interrupt her or didanything to prevent her to self-harm and that something she was upset about.Due to patient concern regarding her ability to maintain her safety, wediscussed with the patient and try to increase the level of observation tolevel 3 for her safety which patient was upset later on. Patient startedgetting aggressive, as well as verbally and physical as well as threateninggesture as well. There was concern about patient ability to maintain hersafety and others and code orange was issued. Try to redirect verbally butthat attempt was felt and chemical restraint was initiated after discussingwith the patient but avoided any physical restraint or any seclusion. Later ondiscussed with the patient about her ability to maintain safety and otherswhich patient stated that she would never attempt to harm herself and she justwanted to let us inform over the staff member but she is not serious in threatto harm herself or others as well. She expressed to maintain safe behavior onthe unit and willing to reach out for further help as well.Mental status examination: Patient was alert, oriented with place and person,appeared aggressive, irritable, her speech remained loud and pressured andusing cursing and threatening words, her mood remain elevated significantly,thought process loose and tangential, thought content concern about her abilityto maintain safety and others, and later on denied direct suicidal, homicidalideations, denied having any auditory visual hallucinations, still remainssomewhat delusional, attention concentration limited, insight and judgmentappeared limited, poor impulsivity.Plan: Consider to continue current treatment plan at this point discussed withthe patient about her ability to maintain safety and others which patientassured and try to continue close observation, at the same time we willconsider to have [facility] for better compliance and plan to discontinueall other medication as well. Also working on safe discharge plan in place aswell. It appears that the patient needs appear to be more long-term due to herbehavioral issue and needing long- term psychotherapy as well.ObjectiveVital SignsVital Signs-LastResult Date Time Pulse Ox 98 04/04 1100B/P 130/88 04/04 1100Temp 97.7 04/04 1100Pulse 98 04/04 1100Resp 16 04/04 1100Current MedicationsSertraline HCl (Zoloft) 25 MG DAILY POAripiprazole (Aripiprazole) 5 MG DAILY POBenzocaine/Pectin/Carboxymethylcell (Cepastat) 1 JHOAN Q2HPRN PRN POClotrimazole (Clotrimazole) 0 DIRECTED TOPNasal Lubricant (Saline Nasal [place]) 0 Q3HPRN PRN NASALClonidine (Catapres) 0.1 MG QHS POTopiramate (Topamax) 100 MG BID POIbuprofen (Motrin) 600 MG Q6HPRN PRN POAcetaminophen (Tylenol) 650 MG Q4HPRN PRN POAcetaminophen (Tylenol) 650 MG Q4HPRN PRN POAl Hydrox/Mg Hydrox/Simethicone (Maalox) 15 ML QIDPRN PRN POHydroxyzine (Atarax) 50 MG Q4HPRN PRN POMagnesium Hydroxide (Mom) 10 ML QHSPRN PRN POTrazodone HCl (Desyrel) 50 MG QHSPRN PRN POOlanzapine (Zydis (Zyprexa)) 10 MG BID PRN SLPrazosin HCl (Minipress) 1 MG QHS POLoratadine (Claritin) 10 MG DAILY POExaminationMusculoskeletalGait normalAssessment/PlanDiagnosis1. Bipolar disorder, manicCoordination of care provided with nursing staff, treatment teamRisk/benefits discussed side effectsDATE SIGNED: 04/04/20 Electronically SignedTIME SIGNED: 1321 BOGDAN ALMAGUER MD Name Value Range Interpretation Code Description Data Stephanie rce(s) Supporting Document(s) ID Date Data Source [id number] 04/04/2020 11:16:00 AM EDT [address] HEALTH PROGRESS NOTEPATIENT NAME: YARELI HATCH PHYSICIAN: BOGDAN ALMAGUER MDAUTHOR: Ana Win. DATE: 02/15/20 MR#: [id number] NOTE DATE: 04/04/20 RM#: [id number] TIME: 1120 AddendumSubjectiveIdentificationPatient is 19-year-old female, currently single, lives in a [facility],past psych history of bipolar disorderCC/Hx Present IllnessThe patient was referred for evaluation because pt having joshi icidal ideations.Events Since Last EntryI spoke to Marilu this morning as I was walking through the day unit. Shewas loud and smiling asking when I would meet with her today. I told her Iwould meet with her as soon as Arin was available to sit with us. She washappy with the same.ObjectiveVital SignsVital Signs-LastResult Date TimeTemp 96.0 04/04 0707Pulse Ox 98 04/03 1100B/P 129/67 04/03 1100Pulse 93 04/03 1100Resp 16 04/03 1100Current MedicationsSertraline HCl (Zoloft) 25 MG DAILY POAripiprazole (Aripiprazole) 5 MG DAILY POBenzocaine/Pe ctin/Carboxymethylcell (Cepastat) 1 JHOAN Q2HPRN PRN POClotrimazole (Clotrimazole) 0 DIRECTED TOPNasal Lubricant (Saline Nasal [place]) 0 Q3HPRN PRN NASALClonidine (Catapres) 0.1 MG QHS POTopiramate (Topamax) 100 MG BID POIbuprofen (Motrin) 600 MG Q6HPRN PRN POAcetaminophen (Tylenol) 650 MG Q4HPRN PRN POAcetaminophen (Tylenol) 650 MG Q4HPRN PRN POAl Hydrox/Mg Hydrox/Simethicone (Maalox) 15 ML QIDPRN PRN POHydroxyzine (Atarax) 50 MG Q4HPRN PRN POMagnesium Hydroxide (Mom) 10 ML QHSPRN PRN POTrazodone HCl (Desyrel) 50 MG QHSPRN PRN POOlanzapine (Zydis (Zyprexa)) 10 MG BID PRN SLPrazosin HCl (Minipress) 1 MG QHS POLoratadine (Claritin) 10 MG DAILY POExaminationMusculoskeletalGait normalMental Status ExaminationSpeech loudPatient's Judgement poorInsight poorReality Testing compromisedDecision Making Capacity compromisedMental StatusFund of Knowledge: awareness of current events, past historyMood euphoric, elatedAffect broad, expansiveAssessment/PlanDiagnosis1. Bipolar disorder, manicCoordination of care provided with nursing staff, treatment teamRisk/benefits discussed side effectsADDENDUM: Pasquale WHITE,Frantz on 04/04/20 at 1120Shortly after seeing Yareli on the day unit, she began yelling for unknownreason. There was a code orange called and we responded on the night unit infront of Yareli's room. She reported feeling angry, was yelling a staff, butwas also smirking. She accepted a prn for aggitation and she began to calm. Fausto meet with her later today if she consents and her behavior is safe andappropriate.DATE SIGNED: 04/04/20 Electronically SignedTIME SIGNED: 1120 FRANTZ - MAXIMILIAN-C GIORDANO Name Value Range Interpretation Code Description Data Stephanie rce(s) Supporting Document(s) ID Date Data Source [id number] 04/03/2020 01:35:00 PM EDT [address] HEALTH PROGRESS NOTEPATIENT NAME: YARELI HATCH PHYSICIAN: BOGDAN ALMAGUER, MDAUTHOR: Colleen SMITH,DhruvADM. DATE: 02/15/20 MR#: [id number] NOTE DATE: 04/03/20 RM#: [id number] TIME: 1338 is 19-year-old female, currently single, lives in a motel,past psych history of bipolar disorderCC/Hx Present IllnessThe patient was referred for evaluation because pt having suicidal ideations.Events Since Last EntryPatient reporting that she is not compliant with current treatment plan, shefeels that current medication does not seem to be working well, discussed withthe patient about injectable medication option as well. Currently patient isalso waiting for safe place for her discharge as well, at times patient stillshowing limited or poor insight about her safe discharge plan as well. Patientalso stating that she does not feel comfortable [facility] addict[facility] and she would prefer to stay here for furthertreatment as well.Mental status examination: Patient was alert, oriented with a place, person,appeared distracted, somewhat elevated mood, affect was possible euphoric,thought process was superficially organized, some circumstantiality there,thought pressured speech, attention concentration limited, insight and judgmentappeared limited: Denied having any direct suicidal, homicidal ideations aswell.Plan: Consider to continue current treatment plan, monitoring for patientsafety, discussed with the patient regarding Abilify Maintena injection forbetter compliance which patient later on agreed with, but will initiate hisdose of Abilify medication at this point as well and working on safe dischargeplan.ObjectiveVital SignsVital Signs-LastResult Date TimePulse Ox 98 04/03 1100B/P 129/67 04/03 1100Temp 97.4 04/03 1100Pulse 93 04/03 1100Resp 16 04/03 1100Current MedicationsSertraline HCl (Zoloft) 25 MG DAILY POSertraline HCl (Zoloft) 75 MG DAILY POBenzocaine/Pectin/Carboxymethylcell (Cepastat) 1 JHOAN Q2HPRN PRN POClotrimazole (Clotrimazole) 0 DIRECTED TOPNasal Lubricant (Saline Nasal [place]) 0 Q3HPRN PRN NASALClonidine (Catapres) 0.1 MG QHS POTopiramate (Topamax) 100 MG BID POIbuprofen (Motrin) 600 MG Q6HPRN PRN POAcetaminophen (Tylenol) 650 MG Q4HPRN PRN POAcetaminophen (Tylenol) 650 MG Q4HPRN PRN POAl Hydrox/Mg Hydrox/Simethicone (Maalox) 15 ML QIDPRN PRN POHydroxyzine (Atarax) 50 MG Q4HPRN PRN POMagnesium Hydroxide (Mom) 10 ML QHSPRN PRN POTrazodone HCl (Desyrel) 50 MG QHSPRN PRN POOlanzapine (Zydis (Zyprexa)) 10 MG BID PRN SLPrazosin HCl (Minipress) 1 MG QHS POLoratadine (Claritin) 10 MG DAILY POAssessment/PlanDiagnosis1. Bipolar disorder, manicCoordination of care provided with nursing staff, treatment teamRisk/benefits discussed side effectsDATE SIGNED: 04/03/20 Electronically SignedTIME SIGNED: 1337 BOGADN ALMAGUER MD Name Value Range Interpretation Code Description Data Stephanie rce(s) Supporting Document(s) ID Date Data Source [id number] 04/02/2020 11:54:00 AM EDT [address] PROGRESS NOTEPATIENT NAME: YARELI HATCH PHYSICIAN: BOGDAN ALMAGUER MDAUTHOR: Ana Win. DATE: 02/15/20 MR#: [id number] NOTE DATE: 04/02/20 #: [id number] TIME: 1637 is 19-year-old female, currently single, lives in a motel,past psych history of bipolar disorderCC/Hx Present IllnessThe patient was referred for evaluation because pt having suicidal ideations.Events Since Last EntryYareli met with me in Cata s office this morning and Dylan RN was alsopresent. Yareli came into the office and stood with arms crossed stating Ihave a problem with her as gestured toward Dylan. Yareli didn t want toaccept that we discovered she didn t tell the truth about staff waking her upand making her leave her room yesterday when the new admission was put in thesame room. She admitted to walking out of the room on her own accord. Wediscussed that Yareli has a problem with any staff when they don t give her 1:1 time and attempt to set boundaries with her. We told her we wanted to workwith her to help her develop an appropriate treatment plan and to that Jazlyn she was leaving and walked out, slamming the door.MSE: Yareli walters affect is blunted and her mood is irritable. She appearsunkempt and unshowered with dandruff or dry skin flakes on her shirt. She ismalodorous as well. Yareli s tone is angry and her volume is loud. Sheoften interrupts and her mannerisms suggest she is tense and unhappy. Nahun insight and judgment are poor as she refuses to speak with us in regards toher future.PLAN: Yareli will continue with inpatient hospitalization until anappropriate discharge placement has been determined. [facility] [place] [facility] [place] Continue to educate and encourage her to comply with medicationsdespite her refusal. Staff will continue to set boundaries and limits withYareli and give her opportunities to practice her coping skills.Assessment/PlanDiagnosis1. Bipolar disorder, manicCoordination of care provided with nursing staff, treatment teamRisk/benefits discussed side effectsDATE SIGNED: 04/02/20 Electronically SignedTIME SIGNED: 1637 FRANTZ GIORDANO Name Value Range Interpretation Code Description Data Stephanie rce(s) Supporting Document(s) ID Date Data Source [id number] 04/03/2020 07:41:00 AM EDT [place], [place] [address]PATIENT NAME: DAMARIS,YARELI Jensen#: [id number] PHYSICIAN: BOGDAN ALMAGUER MD ADM. DATE: 02/15/20PROGRESS NOTE DATE: 04/02/20 RM.#: [id number] #: [id number] NOTEIDENTIFICATION: A 19-year-old female with schizoaffective disorder,borderline personality disorder.VITAL SIGNS: Temperature of 97, pulse of 105, respirations 16, blood /83.SUBJECTIVE: The patient came to the interview room. She does not want totalk to me. She answered yes/no. When I asked if she has anything to discusswith me, she did not answer and she requests discharge from the office andstates she wants to go, she can go, she left the office.MENTAL STATUS EXAMINATION: The patient was uncooperative, guarded, behaviorproblems. Denies suicidal or homicidal ideations at this point, but she isunpredictable. Cognitive part of the test unable to explore.DIAGNOSES: Schizoaffective disorder, borderline personality disorder.PLAN: Continue with the supervision and medication.Date Dictated: 04/02/2020 11:24:04Date Transcribed: 04/03/2020 06:41:37JV/RAVJob #: [id number]: 04/02/20 1124 Electronically SignedTRANS:04/03/20 0741 FILI CANELA MDTRANS BY:IATDATE SIGNED:04/03/20REPORT COPY TO: Name Value Range Interpretation Code Description Data Stephanie rce(s) Supporting Document(s) ID Date Data Source [id number] 04/01/2020 02:07:00 PM EDT [place] [id number] PROGRESS NOTEPATIENT NAME: YARELI HATCH CATTENGIOVANNY PHYSICIAN: BOGDAN ALMAGUER MDAUTHOR: Frantz WinADM. DATE: 02/15/20 MR#: [id number] NOTE DATE: 04/01/20 RM#: [id number] TIME: 1410 is 19-year-old female, currently single, lives in a motel,past psych history of bipolar disorderCC/Hx Present IllnessThe patient was referred for evaluation because pt having suicidal ideations.Events Since Last EntryCata and I met with Yareli today. I wanted to introduce myself to her anddevelop a rapport. During the visit, she mentioned she remembered me from aprior hospitalization at another facility. Yareli stated she is notinterested in taking her medications. She stated she refused her morningmedications and most of her bedtime medications last night. She said she hadno further questions or comments at this time but did state she would like aroom of her own. She later asked many staff members if she could have her ownroom and that roommates give her PTSD. After discussing the options, it wasdecided Yareli would stay in the room she is in with a roommate. She wasoffered an increase in Prazosin from 1mg to 2mg but refused. Marilu said herrights were being violated, and that she would notify the staff attorney because sheis transgender. Yareli disclosed that she was bullied on Facebook due to hercoming out about being transgender. Yareli was allowed to vent about herfrustrations, and encouraged to use coping skills to deal with her emotions.Landy then left Cata's office, stating we would be hearing from someone.MSE: Patient was alert, oriented with person, place, and time. She appearedirritated, and anxious. Yareli denied having suicidal ideations and statedshe felt safe.Plan: Continue current treatment plan, working on safe discharge plan, possiblyto [facility].Assessment/PlanDiagnosis1. Bipolar disorder, manicCoordination of care provided with nursing staff, treatment teamRisk/benefits discussed side effectsDATE SIGNED: 04/01/20 Electronically SignedTIME SIGNED: 1409 FRANTZ GIORDANO Name Value Range Interpretation Code Description Data Stephanie rce(s) Supporting Document(s) ID Date Data Source [id number] 04/02/2020 03:13:00 AM EDT [place] [id number] NAME: YARELI HATCH#: [id number] PHYSICIAN: BOGDAN ALMAGUER MD ADM. DATE: 02/15/20PROGRESS NOTE DATE: 04/01/20 .#: 318ACCOUNT #: [id number] NOTEIDENTIFICATION: A 19-year-old female with schizoaffective disorder, cluster Bpersonality disorder.VITAL SIGNS: Temperature of 97.3, pulse of 98, blood pressure 96/61.SUBJECTIVE: The patient came to the interview room. She stated that she doesnot want to talk to me, that she wants to talk with the nurse and she becamemore agitated. The patient does not want to give us any information. Shestated that if she talks to me, I am going to put her on one-on-one, so wehave to be careful and maybe that she means she has suicidal ideation. Thepatient walked out of the office and slammed the door.MENTAL STATUS EXAMINATION: Patient is uncooperative. Denies any suicidalideation, but we have to be careful as she did not answer all the questions.Judgment and insight are poor. Reality testing is compromised.DIAGNOSES: Schizoaffective disorder and borderline personality disorder.PLAN: Continue with the medication. Continue with safety precautions.Date Dictated: 04/01/2020 10:44:46Date Transcribed: 04/02/2020 02:13:19JV/GBJob #: [id number]: 04/01/20 1044 Electronically SignedTRANS:04/02/20 0313 FILI CANELA MDTRANS BY:IATDATE SIGNED:04/02/20REPORT COPY TO: Name Value Range Interpretation Code Description Data Stephanie rce(s) Supporting Document(s) ID Date Data Source [id number] 03/29/2020 11:29:00 AM EDT [address] [address] PROGRESS NOTEPATIENT NAME: YARELI HATCH CATTENDING PHYSICIAN: BOGDAN ALMAGUER MDAUTHOR: Colleen SMITH,DhruvADM. DATE: 02/15/20 MR#: [id number] NOTE DATE: 03/29/20 RM#: [id number] TIME: 1131 is 19-year-old female, currently [place], [facility], past psych history of bipolar disorderCC/Hx Present IllnessThe patient was referred for evaluation because pt having suicidal ideations.Events Since Last EntryPatient reporting feeling somewhat emotionally upset regarding stating that shewas thinking about her father and the way that he treated her as well. She wassomewhat emotionally upset regarding that as well. But she stated that shedoes not think that she needed medication she thinks that she can able to yaneli by using her coping skills such as listening to music, coloring and journaling as well.Mental status examination: Patient was alert, oriented with a place, person,appeared somewhat anxious, distracted, her speech remained somewhat soft in ahesitant manner, mood was anxious, affect was constricted, thought process wassuperficially organized, thought content denied having any suicidal, homicidalideations, denied having any auditory visual hallucinations, attentionconcentration limited, insight and judgment appeared limited as well.Plan: Consider to continue current treatment plan, working on safe dischargeplan, currently waiting on supportive environment, [facility] been involved aswell.ObjectiveVital SignsVital Signs-LastResult Date TimeTemp 98.9 03/29 0647Pulse Ox 99 03/28 1100B/P 96/61 03/28 1100Pulse 98 03/28 1100Resp 16 03/28 1100Current MedicationsSertraline HCl (Zoloft) 75 MG DAILY POBenzocaine/Pectin/Carboxymethylcell (Cepastat) 1 JHOAN Q2HPRN PRN POClotrimazole (Clotrimazole) 0 DIRECTED TOPNasal Lubricant (Saline Nasal [place]) 0 Q3HPRN PRN NASALClonidine (Catapres) 0.1 MG QHS POTopiramate (Topamax) 100 MG BID POIbuprofen (Motrin) 600 MG Q6HPRN PRN POAcetaminophen (Tylenol) 650 MG Q4HPRN PRN POAcetaminophen (Tylenol) 650 MG Q4HPRN PRN POAl Hydrox/Mg Hydrox/Simethicone (Maalox) 15 ML QIDPRN PRN POHydroxyzine (Atarax) 50 MG Q4HPRN PRN POMagnesium Hydroxide (Mom) 10 ML QHSPRN PRN POTrazodone HCl (Desyrel) 50 MG QHSPRN PRN POOlanzapine (Zydis (Zyprexa)) 10 MG BID PRN SLPrazosin HCl (Minipress) 1 MG QHS POLoratadine (Claritin) 10 MG DAILY POAssessment/PlanDiagnosis1. Bipolar disorder, manicCoordination of care provided with nursing staff, treatment teamRisk/benefits discussed side effectsDATE SIGNED: 03/29/20 Electronically SignedTIME SIGNED: 1131 BOGDAN ALMAGUER MD Name Value Range Interpretation Code Description Data Stephanie rce(s) Supporting Document(s) ID Date Data Source [id number] 03/28/2020 12:37:00 PM EDT [address] PROGRESS NOTEPATIENT NAME: YARELI HATCH PHYSICIAN: BOGDAN ALMAGUER MDAUTHOR: Colleen SMITH,DhruvADM. DATE: 02/15/20 MR#: [id number] NOTE DATE: 03/28/20 RM#: [id number] TIME: 1238 is 19-year-old female, currently single, well [facility], past psych history of bipolar disorderCC/Hx Present IllnessThe patient was referred for evaluation because pt having suicidal ideations.Events Since Last EntryPatient reporting feeling okay, she is still somewhat anxious and worried abouther safe discharge plan of placement outside, she was also stating that she iscurrently trying to reach out to some friends but she would not have luck withgoing or finding a place for herself as well. Denied having any suicidal,homicidal ideations as well.Mental status examination: Patient was barrett rt, oriented with a place, person,appeared distracted, somewhat less anxious, less irritable, her speech remainedslightly pressured, mood was okay, affect was constricted, thought process wassuperficially organized, thought content denied having any suicidal, homicidalideations, denied having any auditory visual hallucinations, attentionconcentration limited, insight and judgment appeared limitedPlan: Consider to continue current treatment plan at this point, monitoring forpatient safety, no medication changes and working on safe discharge plan.ObjectiveVital SignsVital Signs-LastResult Date TimePulse Ox 99 03/28 1100B/P 96/61 03/28 1100Temp 96.6 03/28 1100Pulse 98 03/28 1100Resp 16 03/28 1100Current MedicationsSertraline HCl (Zoloft) 75 MG DAILY POBenzocaine/Pectin/Carboxymethylcell (Cepastat) 1 JHOAN Q2HPRN PRN POClotrimazole (Clotrimazole) 0 DIRECTED TOPNasal Lubricant (Saline Nasal [place]) 0 Q3HPRN PRN NASALClonidine (Catapres) 0.1 MG QHS POTopiramate (Topamax) 100 MG BID POIbuprofen (Motrin) 600 MG Q6HPRN PRN POAcetaminophen (Tylenol) 650 MG Q4HPRN PRN POAcetaminophen (Tylenol) 650 MG Q4HPRN PRN POAl Hydrox/Mg Hydrox/Simethicone (Maalox) 15 ML QIDPRN PRN POHydroxyzine (Atarax) 50 MG Q4HPRN PRN POMagnesium Hydroxide (Mom) 10 ML QHSPRN PRN POTrazodone HCl (Desyrel) 50 MG QHSPRN PRN POOlanzapine (Zydis (Zyprexa)) 10 MG BID PRN SLPrazosin HCl (Minipress) 1 MG QHS POLoratadine (Claritin) 10 MG DAILY POAssessment/PlanDiagnosis1. Bipolar disorder, manicCoordination of care provided with nursing staff, treatment teamRisk/benefits discussed side effectsDATE SIGNED: 03/28/20 Electronically SignedTIME SIGNED: 1238 BOGDAN ALMAGUER MD Name Value Range Interpretation Code Description Data Stephanie rce(s) Supporting Document(s) ID Date Data Source [id number] 03/27/2020 01:16:[address] [facility] [place], [place] [address] PROGRESS NOTEPATIENT NAME: YARELI HATCH PHYSICIAN: BOGDAN ALMAGUER, MDAUTHOR: Colleen SMITH,Sarahy. DATE: 02/15/20 MR#: [id number] NOTE DATE: 03/27/20 RM#: [id number] TIME: 1318 is 19-year-old female, currently single, well lives in [facility], past psych history of bipolar disorderCC/Hx Present IllnessThe patient was referred for evaluation because pt having suicidal ideations.Events Since Last EntryPatient reporting that she has been feeling depressed and she was not sureabout her safety earlier, discussed with the patient about maintaining hersafety and increasing level of observation to level 3 which patient laterstating that now her mind has been much more clear and she feels comfortableabout maintaining her safety and willing to reach out for further help ifneeded as well. Mostly patient mood remains somewhat pleasant even thoughwhile talking about feeling depressed, and denied having any homicidalideations or any auditory visual hallucinations. Patient does not fe elcomfortable having any medication changes any further at this point as well.Mental status examination: Patient was alert, oriented with a place, person,appeared distracted, somewhat pleasant, her speech remain somewhat pressuredand loud, mood was depressed, affect was mood incongruent, thought process wassomewhat circumstantial, thought content denied having any homicidal ideations,earlier reported nonspecific suicidal ideation, denied having any plan, deniedhaving any auditory visual hallucinations, attention concentration limited,insight and judgment appeared limited,Plan: Consider to continue current treatment plan, discussed with the patientabout medication changes which patient does not feel comfortable, continuingcurrent medication as recommended, we increase level of observation due torecent concern about her safety which patient expressed that she will maintainher safety and willing to reach out for further help as well. We alsodiscussed with the nurses about the treatment plan as well and monitoring forher safety at this point as well.ObjectiveVital SignsVital Signs-LastResult Date TimeTemp 98.1 03/27 0656B/P 119/72 03/25 2048Pulse 86 09/14 2048Pulse Ox 100 03/25 1200Resp 20 03/25 1200Current MedicationsSertraline HCl (Zoloft) 75 MG DAILY POBenzocaine/Pectin/Carboxymethylcell (Cepastat) 1 JHOAN Q2HPRN PRN POClotrimazole (Clotrimazole) 0 DIRECTED TOPNasal Lubricant (Saline Nasal [place]) 0 Q3HPRN PRN NASALClonidine (Catapres) 0.1 MG QHS POTopiramate (Topamax) 100 MG BID POIbuprofen (Motrin) 600 MG Q6HPRN PRN POAcetaminophen (Tylenol) 650 MG Q4HPRN PRN POAcetaminophen (Tylenol) 650 MG Q4HPRN PRN POAl Hydrox/Mg Hydrox/Simethicone (Maalox) 15 ML QIDPRN PRN POHydroxyzine (Atarax) 50 MG Q4HPRN PRN POMagnesium Hydroxide (Mom) 10 ML QHSPRN PRN POTrazodone HCl (Desyrel) 50 MG QHSPRN PRN POOlanzapine (Zydis (Zyprexa)) 10 MG BID PRN SLPrazosin HCl (Minipress) 1 MG QHS POLoratadine (Claritin) 10 MG DAILY POAssessment/PlanDiagnosis1. Bipolar disorder, manicCoordination of care provided with nursing staff, treatment teamRisk/benefits discussed side effe ctsDATE SIGNED: 03/27/20 Electronically SignedTIME SIGNED: 1318 BOGDAN ALMAGUER MD Name Value Range Interpretation Code Description Data Stephanie rce(s) Supporting Document(s) ID Date Data Source [id number] 03/26/2020 02:18:00 PM EDT [address] PROGRESS NOTEPATIENT NAME: YARELI HATCH PHYSICIAN: BOGDAN ALMAGUER MDAUTHOR: Colleen SMITH,DhruvADM. DATE: 02/15/20 MR#: [id number] NOTE DATE: 03/26/20 RM#: [id number] TIME: 1419 is 19-year-old female, currently single, well lives in [facility], past psych history of bipolar disorderCC/Hx Present IllnessThe patient was referred for evaluation because pt having suicidal ideations.Events Since Last EntryPatient reported feeling okay but she stated that she wrote it down somethingthat she would like to be under the ground, discussed with the patient aboutwhether she wanted to hurt herself which patient denied and patient expressedwilling to reach out to the nurses and staff if needed as well. She alsostating that current medication that she has been continuing as well. Alsod iscussed with the patient about working on safe discharge plan as well.Mental status examination: Patient was alert, oriented with a place, person,appeared distracted, somewhat anxious, slightly irritable, her speech remainedpressured rapid mood was okay, affect was constricted, thought process wascircumstantial, thought content denied having any suicidal, homicidal ideations, denied having any auditory visual hallucinations, attention concentrationlimited, insight and judgment appeared limited as wellPlan: Consider to continue current treatment plan, monitoring for patientsafety, working on safe discharge plan.ObjectiveVital SignsVital Signs-LastResult Date TimeTemp 98.3 03/26 0642B/P 119/72 03/25 2048Pulse 86 03/25 2048Pulse Ox 100 03/25 1200Resp 20 03/25 1200Current MedicationsBenzocaine/Pectin/Carboxymethylcell (Cepastat) 1 JHOAN Q2HPRN PRN POClotrimazole (Clotrimazole) 0 DIRECTED TOPNasal Lubricant (Saline Nasal [place]) 0 Q3HPRN PRN NASALClonidine (Catapres) 0.1 MG QHS POTopiramate (Topamax) 100 MG BID POIbuprofen (Motrin) 600 MG Q6HPRN PRN POAcetaminophen (Tylenol) 650 MG Q4HPRN PRN POAcetaminophen (Tylenol ) 650 MG Q4HPRN PRN POAl Hydrox/Mg Hydrox/Simethicone (Maalox) 15 ML QIDPRN PRN POHydroxyzine (Atarax) 50 MG Q4HPRN PRN POMagnesium Hydroxide (Mom) 10 ML QHSPRN PRN POTrazodone HCl (Desyrel) 50 MG QHSPRN PRN POOlanzapine (Zydis (Zyprexa)) 10 MG BID PRN SLPrazosin HCl (Minipress) 1 MG QHS POLoratadine (Claritin) 10 MG DAILY POSertraline HCl (Zoloft) 50 MG DAILY POAssessment/PlanDiagnosis1. Bipolar disorder, manicCoordination of care provided with nursing staff, treatment teamRisk/benefits discussed side effectsDATE SIGNED: 03/26/20 Electronically SignedTIME SIGNED: 141 BOGDAN ALMAGUER MD Name Value Range Interpretation Code Description Data Stephanie rce(s) Supporting Document(s) ID Date Data Source [id number] 03/25/2020 01:50:00 PM EDT [address] HEALTH PROGRESS NOTEPATIENT NAME: YARELI HATCH PHYSICIAN: BOGDAN ALMAGUER MDAUTHOR: Colleen SMITH,DhruvADM. DATE: 02/15/20 MR#: [id number] NOTE DATE: 03/25/20 RM#: [id number] TIME: 1352 is 19-year-old female, currently single, well lives in [facility], past psych history of bipolar disorderCC/Hx Present IllnessThe patient was referred for evaluation because pt having suicidal ideations.Events Since Last EntryPatient reporting feeling somewhat okay, expressing that she has been feelingfine and she is open to continue taking her medication as well. Still waitingfor safe discharge plan as well, [facility] is involved, denied having any medicationside effect at this point as well.Mental status examination: Patient was alert, oriented with a place, person,appeared somewhat less anxious, less d istracted, her speech remained somewhatpressured, mood was okay, affect was slightly elevated, thought process wassomewhat circumstantial, thought content denied having any suicidal, homicidalideation, denied having any auditory visual hallucinations, attentionconcentration limited, insight and judgment appeared limited as well.Plan: Consider to continue current treatment plan, no medication changes,patient shows some improvement at this point, plan for discharge soon.ObjectiveVital SignsVital Signs-LastResult Date TimePulse Ox 100 03/25 1200B/P 109/55 03/25 1200Temp 96.3 03/25 1200Pulse 71 03/25 1200Resp 20 03/25 1200Current MedicationsClotrimazole (Clotrimazole) 0 DIRECTED TOPNasal Lubricant (Saline Nasal [place]) 0 Q3HPRN PRN NASALClonidine (Catapres) 0.1 MG QHS POTopiramate (Topamax) 100 MG BID POIbuprofen (Motrin) 600 MG Q6HPRN PRN POAcetaminophen (Tylenol) 650 MG Q4HPRN PRN POAcetaminophen (Tylenol) 650 MG Q4HPRN PRN POAl Hydrox/Mg Hydrox/Simethicone (Maalox) 15 ML QIDPRN PRN POHydroxyzine (Atarax) 50 MG Q4HPRN PRN POMagnesium Hydroxide (Mom) 10 ML QHSPRN PRN POTrazodone HCl (Desyrel) 50 MG QHSPRN PRN POOlanzapine (Zydis (Zyprexa)) 10 MG BID PRN SLPrazosin HCl (Minipress) 1 MG QHS POLoratadine (Claritin) 10 MG DAILY POSertraline HCl (Zoloft) 50 MG DAILY POBenzocaine/Pectin/Carboxymethylcell (Cepastat) 1 JHOAN Q2HPRN PRN POAssessment/PlanDiagnosis1. Bipolar disorder, manicCoordination of care provided with nursing staff, treatment teamRisk/benefits discussed side effectsDATE SIGNED: 03/25/20 Electronically SignedTIME SIGNED: 1352 BOGDAN ALMAGUER MD Name Value Range Interpretation Code Description Data Stephanie rce(s) Supporting Document(s) ID Date Data Source [id number] 03/22/2020 01:42:00 PM EDT [address] HEALTH PROGRESS NOTEPATIENT NAME: YARELI HATCH PHYSICIAN: BOGDAN ALMAGUER MDAUTHOR: Colleen SMITH,DhruvADM. DATE: 02/15/20 MR#: [id number] NOTE DATE: 03/22/20 #: [id number] TIME: 1344 is 19-year-old female, currently single, well lives in [facility], past psych history of bipolar disorderCC/Hx Present IllnessThe patient was referred for evaluation because pt having suicidal ideations.Events Since Last EntryPatient reported feeling okay, she also stated that she will behave with otherpeople as well, still currently waiting for a safe discharge plan, deniedhaving any medical issues, she stated that she would try to take clonidinemedication as well. Denied having any medication side effect as well.Mental status examination: Patient was alert, oriented with a place, person,appeared somewhat distracted, somewhat elevated mood, her speech remainedpressured and rapid, thought process was somewhat circumstantial, thoughtcontent denied having any suicidal, homicidal ideations, denied having anyauditory visual hallucinations, attention concentration limited, insight andjudgment appeared limited as wellPlan: Consider to continue current treatment plan, monitoring for patientsafety at this point, discussed with the patient regarding continuing currentmedication and working on safe discharge plan, according to informationobtained omh involved about safe discharge plan as well.ObjectiveVital SignsVital Signs-LastResult Date TimeTemp 97.4 03/22 0739Pulse Ox 98 03/20 1726B/P 120/71 03/20 1726Pulse 86 03/20 1726Resp 16 03/20 1726Current MedicationsClonidine (Catapres) 0.1 MG QHS POTopiramate (Topamax) 100 MG BID POIbuprofen (Motrin) 600 MG Q6HPRN PRN POAcetaminophen (Tylenol) 650 MG Q4HPRN PRN POAcetaminophen (Tylenol) 650 MG Q4HPRN PRN POAl Hydrox/Mg Hydrox/Simethicone (Maalox) 15 ML QIDPRN PRN POHydroxyzine (Atarax) 50 MG Q4HPRN PRN POMagnesium Hydroxide (Mom) 10 ML QHSPRN PRN POTrazodone HCl (Desyrel) 50 MG QHSPRN PRN POOlanzapine (Zydis (Zyprexa)) 10 MG BID PRN SLPrazosin HCl (Minipress) 1 MG QHS POLoratadine (Claritin) 10 MG DAILY POSertraline HCl (Zoloft) 50 MG DAILY POBenzocaine/Pectin/Carboxymethylcell (Cepastat) 1 JHOAN Q2HPRN PRN POAssessment/PlanDiagnosis1. Bipolar disorder, manicCoordination of care provided with nursing staff, treatment teamRisk/benefits discussed side effectsDATE SIGNED: 03/22/20 Electronically SignedTIME SIGNED: 1344 BOGDAN ALMAGUER MD Name Value Range Interpretation Code Description Data Stephanie rce(s) Supporting Document(s) ID Date Data Source [id number] 03/21/2020 01:39:00 PM EDT [address] HEALTH PROGRESS NOTEPATIENT NAME: YARELI HATCH PHYSICIAN: BOGDAN ALMAGUER MDAUTHOR: Colleen SMITH,DhruvADM. DATE: 02/15/20 MR#: [id number] NOTE DATE: 03/21/20 RM#: [id number] TIME: 1341 is 19-year-old female, currently single, well lives in [facility], past psych history of bipolar disorderCC/Hx Present IllnessThe patient was referred for evaluation because pt having suicidal ideations.Events Since Last EntryPatient was seen on other side with practice coordinator, patient reportedfeeling okay, but she stated that she would be okay but she was also statingthat there are people sometimes annoys her and causes problem on the unit forher as well. She denied having any medical issues, expressed to maintain safebehavior on the unit as well.Mental status examination: Patient was alert, oriented with a place, person,appeared less irritable, less distracted, speech remained somewhat pressuredrapid, mood was okay, affect was constricted, thought process was superficiallyorganized, thought content denied having any suicidal, homicidal ideation,denied having any auditory visual hallucinations, attention concentrationlimited, insight and judgment appeared limited as wellPlan: Consider to continue current treatment plan, discussed with the patientabout adding clonidine medication for underlying impulse control behavior aswell. At this point we are adding only at the nighttime for medication sideeffects such as sedation and drowsiness which we discussed with the patient aswell. Monitoring for her safety and working on safe discharge plan.ObjectiveVital SignsVital Signs-LastResult Date TimeTemp 98.2 03/21 0657Pulse Ox 98 03/20 1726B/P 120/71 03/20 1726Pulse 86 03/20 1726Resp 16 03/20 1726Current MedicationsTopiramate (Topamax) 100 MG BID POIbuprofen (Motrin) 600 MG Q6HPRN PRN POAcetaminophen (Tylenol) 650 MG Q4HPRN PRN POAcetaminophen (Tylenol) 650 MG Q4HPRN PRN POAl Hydrox/Mg Hydrox/Simethicone (Maalox) 15 ML QIDPRN PRN POHydroxyzine (Atarax) 50 MG Q4HPRN PRN POMagnesium Hydroxide (Mom) 10 ML QHSPRN PRN POTrazodone HCl (Desyrel) 50 MG QHSPRN PRN POOlanzapine (Zydis (Zyprexa)) 10 MG BID PRN SLPrazosin HCl (Minipress) 1 MG QHS POLoratadine (Claritin) 10 MG DAILY POSertraline HCl (Zoloft) 50 MG DAILY POBenzocaine/Pectin/Carboxymethylcell (Cepastat) 1 JHOAN Q2HPRN PRN POAssessment/PlanDiagnosis1. Bipolar disorder, manicCoordination of care provided with nursing staff, treatment teamRisk/benefits discussed side effectsDATE SIGNED: 03/21/20 Electronically SignedTIME SIGNED: 1341 BOGDAN ALMAGUER MD Name Value Range Interpretation Code Description Data Stephanie rce(s) Supporting Document(s) ID Date Data Source [id number] 03/20/2020 01:45:00 PM EDT [place] [id number] PROGRESS NOTEPATIENT NAME: YARELI HATCH PHYSICIAN: BOGDAN ALMAGUER MDAUTHOR: Colleen SMITH,DhdahpnievAPUJA. DATE: 02/15/20 MR#: [id number] NOTE DATE: 03/20/20 RM#: [id number] TIME: 1348 is 19-year-old female, currently single, well lives in [facility], past psych history of bipolar disorderCC/Hx Present IllnessThe patient was referred for evaluation because pt having suicidal ideations.Events Since Last EntryPatient remained irritable, patient also stated that she does not feelcomfortable taking any psychotropic medication. She was also stating that shedoes not feel comfortable returning back to [facility] or any DSS place or any otherplace other than the place that she was screaming and even though if it takesvery bit longer for her as well. Later on patient was observed irritable,r egarding issue with staff member and appeared irritable, agitated, also usingabusive and threatening words with later on observed patient trying to flip orthrows the chairs over and concern regarding patient's ability to maintain hersafety and others. Try to verbally redirect the patient but later on patientneeded medication as well.Mental status examination: Patient was alert, oriented with a place, person,appeared irritable, somewhat agitated, speech remained pressured and rapid,mood was irritable, affect was elevated, thought process was l circumstantial,thought content denied having any direct suicidal or homicidal ideation butconcern about her ability to maintain safety and others due to recent impulsiveas well as agitated behavior, attention concentration limited, denied havingany auditory visual hallucinations or delusions, insight and judgment appearedimpairedPlan: Consider to continue current treatment plan, we recommended patientcontinuing psychotropic medication which patient seems to be refusing at timesand not compliant at times as well. Currently monitoring for her safety,working on safe discharge plan.ObjectiveVital SignsVital Signs- LastResult Date TimeTemp 96.2 03/20 0752Pulse Ox 99 03/18 1100B/P 126/71 03/18 1100Pulse 82 03/18 1100Resp 17 03/18 1100Current MedicationsTopiramate (Topamax) 100 MG BID POIbuprofen (Motrin) 600 MG Q6HPRN PRN POAcetaminophen (Tylenol) 650 MG Q4HPRN PRN POAcetaminophen (Tylenol) 650 MG Q4HPRN PRN POAl Hydrox/Mg Hydrox/Simethicone (Maalox) 15 ML QIDPRN PRN POHydroxyzine (Atarax) 50 MG Q4HPRN PRN POMagnesium Hydroxide (Mom) 10 ML QHSPRN PRN POTrazodone HCl (Desyrel) 50 MG QHSPRN PRN POOlanzapine (Zydis (Zyprexa)) 10 MG BID PRN SLPrazosin HCl (Minipress) 1 MG QHS POLoratadine (Claritin) 10 MG DAILY POSertraline HCl (Zoloft) 50 MG DAILY POBenzocaine/Pectin/Carboxymethylcell (Cepastat) 1 JHOAN Q2HPRN PRN POAssessment/PlanDiagnosis1. Bipolar disorder, manicCoordination of care provided with nursing staff, treatment teamRisk/benefits discussed side effectsDATE SIGNED: 03/20/20 Electronically SignedTIME SIGNED: 1348 BOGDAN ALMAGUER MD Name Value Range Interpretation Code Description Data Stephanie rce(s) Supporting Document(s) ID Date Data Source [id number] 03/20/2020 02:30:00 AM EDT [place], [place] [address]PATIENT NAME: YARELI HATCH#: [id number] PHYSICIAN: BOGDAN ALMAGUER MD ADM. DATE: 02/15/20PROGRESS NOTE DATE: 03/19/20 .#: 318ACCOUNT #: [id number] NOTEIDENTIFICATION: A 19-year-old female with schizoaffective disorder.VITAL SIGNS: Temperature of 98.4, pulse of 82, respirations 17, bloodpressure 126/71.SUBJECTIVE: The patient is in seclusion. This morning, she started gettingagitated and aggressive. She had a chair, trying to throw the chair to wardsanother client. She needs a lot of redirection and she was in restraints. Attime of this dictation, she is more calm and cooperative. She cannot explainwhy she was acting that way.DIAGNOSES: Schizoaffective disorder.PLAN: Continue with the medication.Date Dictated: 03/19/2020 10:55:33Date Transcribed: 03/20/2020 01:30:40LEIGH/Shena #: [id number]: 03/19/20 1055 Electronically SignedTRANS:03/20/20 0230 FILI CANELA MDTRANS BY:KIERRA SIGNED:03/20/20REPORT COPY TO: Name Value Range Interpretation Code Description Data Stephanie rce(s) Supporting Document(s) ID Date Data Source [id number] 03/18/2020 02:02:00 PM EDT [place] [id number] PROGRESS NOTEPATIENT NAME: DENISSE HATCHYLA FELTON PHYSICIAN: BOGDAN ALMAGUER MDAUTHOR: Mai SMITH,P.ADM. DATE: 02/15/20 MR#: [id number] NOTE DATE: 03/18/20 RM#: [id number] TIME: 1407 is 19-year-old female, currently single, well lives in [facility], past psych history of bipolar disorderCC/Hx Present IllnessThe patient was referred for evaluation because pt having suicidal ideations.Additional notesMicadrienne was seen today. She appears to be smiling and in a good mood butinsisted she is not in a good mood. She doesn't seem to be taking care ofherself well. Her hair was not taken care of. She is irritable and labile andhas been receiving chemical restraints almost on a daily basis. She was also in4 point restraints.Portions of this section were scribed by Colby Arroyo on 03/18/20 at 1402Assessment/PlanDiagnosis1. Bipolar disorder, manicCoordination of care provided with nursing staff, treatment teamRisk/benefits discussed side effectsAdditional NotesPlan: Continue hospitali zation and treatment plan per Dr. Almaguer.Portions of this section were scribed by Colby Arroyo on 03/18/20 at 1402DATE SIGNED: 03/20/20 Electronically SignedTIME SIGNED: 1111 BROOKLYN ONEILL MD Name Value Range Interpretation Code Description Data Stpehanie rce(s) Supporting Document(s) ID Date Data Source [id number] 03/15/2020 12:49:[address] [facility] [place] [id number] PROGRESS NOTEPATIENT NAME: YARELI HATCH F[place] PHYSICIAN: BOGDAN ALMAGUER, MDAUTHOR: Colleen SMITH,DhruvAPUJA. DATE: 02/15/20 MR#: [id number] NOTE DATE: 03/15/20 RM#: [id number] TIME: 1250 is 19-year-old female, currently single, well lives in [facility], past psych history of bipolar disorderCC/Hx Present IllnessThe patient was referred for evaluation because pt having suicidal ideations.Events Since Last EntryPatient reporting feeling okay, she was stating that she likes that she refusedto take medications as well. Patient still remains somewhat elevated mood,still focused on her safe discharge plan which we discussed with the patientabout couple of other options which patient does not feel comfortable goingwith at this point as well. Denied having any suicidal, homicidal ideatio ns,educated about maintaining her safety as well. Patient still shows significantpoor insight and poor impulse control as well.Mental status examination: Patient was alert, oriented with a place, person,appeared somewhat irritable, affect was elevated, thought process was mostlytangential, poor impulse control, thought content denied having any directsuicidal, homicidal ideation, denied having any auditory visual hallucination,denied delusions, attention concentration poor, insight and judgment appearedimpairedPlan: Consider to continue current treatment plan, currently working on safedischarge plan at this point monitoring for patient safety as well.ObjectiveVital SignsVital Signs-LastResult Date TimeTemp 96.5 03/15 0634Pulse Ox 99 03/14 1756B/P 90/60 03/14 1756Pulse 97 03/14 1756Resp 15 03/14 1756Current MedicationsTopiramate (Topamax) 75 MG BID POOlanzapine (Zydis (Zyprexa)) 10 MG BID PRN SLPrazosin HCl (Minipress) 1 MG QHS POLoratadine (Claritin) 10 MG DAILY POSertraline HCl (Zoloft) 50 MG DAILY POBenzocaine/Pectin/Carboxymethylcell (Cepastat) 1 JHOAN Q2HPRN PRN POIbuprofen (Motrin) 600 MG Q6HPRN PRN POAcetaminophen (Tylenol) 650 MG Q4HPRN PRN POAcetaminophen (Tylenol) 650 MG Q4HPRN PRN POAl Hydrox/Mg Hydrox/Simethicone (Maalox) 15 ML QIDPRN PRN POHydroxyzine (Atarax) 50 MG Q4HPRN PRN POMagnesium Hydroxide (Mom) 10 ML QHSPRN PRN POTrazodone HCl (Desyrel) 50 MG QHSPRN PRN POTuberculin PPD (Mantoux) 5 UNIT ONCE PRN IDAssessment/PlanDiagnosis1. Bipolar disorder, manicCoordination of care provided with nursing staff, treatment teamRisk/benefits discussed side effectsDATE SIGNED: 03/15/20 Electronically SignedTIME SIGNED: 1250 BOGDAN ALMAGUER MD Name Value Range Interpretation Code Description Data Stephanie rce(s) Supporting Document(s) ID Date Data Source [id number] 03/14/2020 01:23:00 PM EDT [address] PROGRESS NOTEPATIENT NAME: YARELI HATCH PHYSICIAN: BOGDAN ALMAGUER MDAUTHOR: Colleen SMITH,DhruvADM. DATE: 02/15/20 MR#: [id number] NOTE DATE: 03/14/20 RM#: [id number] TIME: 1325 is 19-year-old female, currently single, well lives in [facility], past psych history of bipolar disorderCC/Hx Present IllnessThe patient was referred for evaluation because pt having suicidal ideations.Events Since Last EntryPatient still remains somewhat irritable, mostly focused on her discharge koko well, patient was offered all other options regarding returning back [place] or DSS which patient does not feel comfortable as well. At times patientstated that she takes her medication but she needed something more that couldhelp as well. She also does not feel well student to be present during t hisconversation as well and we stopped student to be part of her examination aswell. Still working on safe discharge plan, denied having any direct suicidal,homicidal ideations.Mental status examination: Patient was alert, oriented with a place, person,still appeared somewhat irritable, distracted, elevated mood, her speechremained pressured rapid, mood was somewhat euphoric, affect was elevated,thought process was circumstantial and loose, thought content denied having anysuicidal, homicidal ideation, still remained somewhat delusional, attentionconcentration poor, denied auditory visual hallucination, also shows poorimpulse control, insight and judgment appeared impairedPlan: Consider to continue current treatment plan, discussed with the patientabout continuing current medication and further increasing Topamax medicationfor underlying mood stabilization as well. Still having some difficulty withcontrolling her mood as well. Patient shows irritability and agitation attimes as well, monitoring for her safety and working on safe discharge plan.No medical issues reported.ObjectiveVital SignsVital Signs-LastResult Date TimeTemp 96.3 03/14 0651Pulse Ox 98 03/13 194B/P 129/77 03/13 1949Pulse 86 03/13 194Resp 17 03/13 1949Assessment/PlanDiagnosis1. Bipolar disorder, manicCoordination of care provided with nursing staff, treatment teamRisk/benefits discussed side effectsDATE SIGNED: 03/14/20 Electronically SignedTIME SIGNED: 1325 BOGDAN ALMAGUER MD Name Value Range Interpretation Code Description Data Stephanie rce(s) Supporting Document(s) ID Date Data Source [id number] 03/13/2020 01:28:00 PM EDT [address] HEALTH PROGRESS NOTEPATIENT NAME: YARELI HATCH PHYSICIAN: BOGDAN ALMAGUER MDAUTHOR: Colleen SMITH,DhruvADM. DATE: 02/15/20 MR#: [id number] NOTE DATE: 03/13/20 RM#: [id number] TIME: 1329 is 19-year-old female, currently single, well lives in [facility], past psych history of bipolar disorderCC/Hx Present IllnessThe patient was referred for evaluation because pt having suicidal ideations.Events Since Last EntryPatient was seen on other side with medical staff as well, patient was sleeping, did not make much eye contact, does not feel comfortable talking to us andunable to assess much information during this assessment.Mental status examination: Patient was sleeping, unable to assess muchinformation due to lack of cooperation even though we try to talk to her aswell. Patient seems to be ignoring upon asking her name as well. Insight andjudgment appeared impairedPlan: Consider to continue current treatment plan, monitoring for her safety,discussed with the staff regarding reaching us out to patient wanted to be seenagain or have any question as well. Still working on safe discharge plan.ObjectiveVital SignsVital Signs-LastResult Date TimeTemp 98.1 03/13 0635Pulse Ox 98 03/11 1532B/P 130/74 03/11 1532Pulse 88 03/11 1532Resp 20 03/11 1532Current MedicationsPrazosin HCl (Minipress) 1 MG QHS POOlanzapine (Zydis (Zyprexa)) 10 MG BID SLTopiramate (Topamax) 50 MG BID POLoratadine (Claritin) 10 MG DAILY POSertraline HCl (Zoloft) 50 MG DAILY POBenzocaine/Pectin/Carboxymethylcell (Cepastat) 1 JHOAN Q2HPRN PRN PO Ibuprofen (Motrin) 600 MG Q6HPRN PRN POAcetaminophen (Tylenol) 650 MG Q4HPRN PRN POAcetaminophen (Tylenol) 650 MG Q4HPRN PRN POAl Hydrox/Mg Hydrox/Simethicone (Maalox) 15 ML QIDPRN PRN POHydroxyzine (Atarax) 50 MG Q4HPRN PRN POMagnesium Hydroxide (Mom) 10 ML QHSPRN PRN POTrazodone HCl (Desyrel) 50 MG QHSPRN PRN POTuberculin PPD (Mantoux) 5 UNIT ONCE PRN IDAssessment/PlanDiagnosis1. Bipolar disorder, manicCoordination of care provided with nursing staff, treatment teamRisk/benefits discussed side effectsDATE SIGNED: 03/13/20 Electronically SignedTIME SIGNED: 1329 BOGDAN ALMAGUER MD Name Value Range Interpretation Code Description Data Stephanie rce(s) Supporting Document(s) ID Date Data Source [id number] 03/12/2020 01:51:00 PM EDT [address] [id number] [facility] PROGRESS NOTEPATIENT NAME: YARELI HATCH PHYSICIAN: BOGDAN ALMAGUER, MDAUTHOR: Colleen SMITH,Sarahy. DATE: 02/15/20 MR#: [id number] NOTE DATE: 03/12/20 RM#: [id number] TIME: 1356 is 19-year-old female, currently single, well lives in [facility], past psych history of bipolar disorderCC/Hx Present IllnessThe patient was referred for evaluation because pt having suicidal ideations.Events Since Last EntryPatient remained somewhat paranoid about student as well, she stated that shehas been doing okay, she still does not feel comfortable taking certainmedication as well. Patient is also focused on her discharge plan which weeducated her about possible being accepted in supportive environment whichpatient agreed as well. Denied having any medication side effect, patientexpressed to maintain safe behavior on the unit.Mental status examination: Patient was alert, oriented with a place, person,appeared distracted, still limited impulse control, her speech remainedpressured and rap id, mood was okay, affect was slightly elevated, thoughtprocess was circumstantial, thought content denied having any suicidal,homicidal ideations, denied having any auditory visual hallucinations, denieddelusions, attention concentration limited, insight and judgment appearedimpairedPlan: Consider to continue current treatment plan, currently waiting for a safedischarge plan, expressed maintain safe behavior on the unit. And working onsafe discharge plan.ObjectiveVital SignsVital Signs-LastResult Date TimeTemp 97.8 03/12 0652Pulse Ox 98 03/11 1532B/P 130/74 03/11 1532Pulse 88 03/11 1532Resp 20 03/11 1532Current MedicationsPrazosin HCl (Minipress) 1 MG QHS POQuetiapine Fumarate (Seroquel) 150 MG QHS POTopiramate (Topamax) 50 MG BID POLoratadine (Claritin) 10 MG DAILY POSertraline HCl (Zoloft) 50 MG DAILY POBenzocaine/Pectin/Carboxymethylcell (Cepastat) 1 JHOAN Q2HPRN PRN POIbuprofen (Motrin) 600 MG Q6HPRN PRN POAcetaminophen (Tylenol) 650 MG Q4HPRN PRN POAcetaminophen (Tylenol) 650 MG Q4HPRN PRN POAl Hydrox/Mg Hydrox/Simethicone (Maalox) 15 ML QIDPRN PRN POHydroxyzine (Atarax) 50 MG Q4HPRN PRN POMagnesium Hydroxide (Mom) 10 ML QHSPRN PRN POTrazodone HCl (Desyrel) 50 MG QHSPRN PRN POTuberculin PPD (Mantoux) 5 UNIT ONCE PRN IDAssessment/PlanDiagnosis1. Bipolar disorder, manicCoordination of care provided with nursing staff, treatment teamRisk/benefits discussed side effectsDATE SIGNED: 03/12/20 Electronically SignedTIME SIGNED: 135 BOGDAN ALMAGUER MD Name Value Range Interpretation Code Description Data Stephanie rce(s) Supporting Document(s) ID Date Data Source [id number] 03/11/2020 01:30:00 PM EDT [address] PROGRESS NOTEPATIENT NAME: YARELI HATCH PHYSICIAN: BOGDAN ALMAGUER MDAUTHOR: Colleen SMITH,DhruvADM. DATE: 02/15/20 MR#: [id number] NOTE DATE: 03/11/20 RM#: [id number] TIME: 1332 is 19-year-old female, currently single, [facility], past psych history of bipolar disorderCC/Hx Present IllnessThe patient was referred for evaluation because pt having suicidal ideations.Events Since Last EntryPatient remain somewhat optimistic regarding her discharge plan as well. Butpatient stated that she does not feel comfortable taking Seroquel medicationeven though she was also having racing thoughts and at times appeared elevatedmood as well. She denied having any other medication side effect, reportingthat she has been doing fine, expressed to maintain safe behavior on the unitat times patient shows poor impulse control as well.Mental status examination: Patient was alert, oriented with a place, person,appeared elevated mood, her speech remained pressured and rapid, affect wassomewhat euphoric, thought process was mostly circumstantial, at times alsoobserved, thought content denied having any suicidal, homicidal ideations,denied having any auditory visual hallucinations, denied delusions, attentionconcentration limited, insight and judgment appeared limited, poor impulsecontrol at timesPlan: Consider to continue current treatment plan, monitoring for patientsafety, we discussed with the patient about continuing Seroquel medicationwhich patient does not feel comfortable taking the medication at this point,currently working on safe discharge plan.ObjectiveVital SignsVital Signs- LastResult Date TimeTemp 97.5 03/11 0713Pulse Ox 98 03/10 1859B/P 101/71 03/10 1859Pulse 91 03/10 1859Resp 17 03/10 1859Assessment/PlanDiagnosis1. Bipolar disorder, manicCoordination of care provided with nursing staff, treatment teamRisk/benefits discussed side effectsDATE SIGNED: 03/11/20 Electronically SignedTIME SIGNED: 1332 BOGDAN ALMAGUER MD Name Value Range Interpretation Code Description Data Stephanie rce(s) Supporting Document(s) ID Date Data Source [id number] 03/10/2020 11:31:00 AM EDT [address] HEALTH PROGRESS NOTEPATIENT NAME: YARELI HATCH PHYSICIAN: BOGDAN ALMAGUER MDAUTHOR: Alfred SMITH,MuhammadADM. DATE: 02/15/20 MR#: [id number] NOTE DATE: 03/10/20 RM#: [id number] TIME: 1135 is 19-year-old female, currently single, well lives in [facility], past psych history of bipolar disorderCC/Hx Present IllnessThe patient was referred for evaluation because pt having suicidal ideations.Events Since Last EntryPatient states that she is doing okay today. She states her sleep was okay andher appetite is good. Patient discussed her difficulty with anger management,and she was encouraged to let the staff know when she is finding it difficultto control her anger. She reports some suicidal ideations at this time butstated she does not have any plans at this time. She denies any HI at thistime.Portions of this section were scribed by Colby Arroyo on 03/10/20 at 1131ObjectiveVital SignsVital Signs-LastResult Date TimeTemp 99.2 03/10 1006Pulse Ox 97 03/09 1857B/P 133/72 03/09 1857Pulse 101 03/09 1857Resp 16 03/09 1857Mental Status ExaminationSpeech normalThought Process superficially organizedThought Content normalAssociations circumstantialAbnormal or Psychotic Thoughts no impairmentPatient's Judgement poorInsight poorReality Testing intactDecision Making Capacity compromisedMental StatusOrientation time, place, person, name, situationRecent & Remote Memory intactConcentration normalFund of Knowledge: awareness of current events, past history, vocabularyMood irritable, depressedAffect dysphoricPortions of this section were scribed by Colby Arroyo on 03/10/20 at 1131Assessment/PlanDiagnosis1. Bipolar disorder, manicCoordination of care provided with nursing staff, treatment teamRisk/benefits discussed side effectsJustification for continued stay danger to self/othersAdditional NotesPlan: No changes in medications at this time. Patient is showing improvements.Portions of this section were scribed by Colby Arroyo on 03/10/20 at 1131DATE SIGNED: 03/10/20 Electronically SignedTIME SIGNED: 1155 AMADA MCLEAN MD Name Value Range Interpretation Code Description Data Stephanie rce(s) Supporting Document(s) Procedure Social History Code Duration Value Status Description Data Source(s ) Alcohol intake 04/05/2021 12:00:00 AM EDT Ex-drinker (finding) comp leted Ex- drinker (finding) [facility] Tobacco use and exposure 04/05/2021 12:00:00 AM EDT Never used co mpleted Never used [facility] Cigarette pack-years 04/05/2021 12:00:00 AM EDT UNK completed [facility] Cigarettes smoked current (pack per day) - Reported 04/05/20 12:00:00 AM EDT UNK completed [facility] Smoking 04/05/2021 12:00:00 AM EDT Current every day smoker co mpleted Current every day smoker [facility] Smoking 03/20/2021 12:00:00 AM EDT Unknown if ever smoked comp leted Unknown if ever smoked [facility] Alcohol intake 03/13/2021 12:00:00 AM EDT Ex-drinker (finding) comp leted Ex- drinker (finding) [facility] Tobacco use and exposure 03/13/2021 12:00:00 AM EDT Never used co mpleted Never used [facility] Cigarettes smoked current (pack per day) - Reported 03/13/20 12:00:00 AM EDT UNK completed [facility] Smoking 03/13/2021 12:00:00 AM EDT Current every day smoker co mpleted Current every day smoker [facility] Alcohol intake 02/21/2021 12:00:00 AM EDT Ex-drinker (finding) comp leted Ex- drinker (finding) [facility] 12/22/2020 12:00:00 AM EDT Cigarette Smoker completed Cig arette Smoker [facility] 12/22/2020 12:00:00 AM EDT Current every day smoker co mpleted Current every day smoker [facility] Smoking 11/13/2020 12:00:00 AM EDT Unknown if ever smoked comp leted Unknown if ever smoked [facility] Smoking 08/27/2020 12:00:00 AM EST Unknown if ever smoked comp leted Unknown if ever smoked [facility] Smoking 08/23/2020 12:00:00 AM EST Unknown if ever smoked comp leted Unknown if ever smoked [facility] Smoking 06/24/2020 12:00:00 AM EST Unknown if ever smoked comp leted Unknown if ever smoked [facility] ([facility] Vital Signs ID Date Data Source UNK Name Value Range Interpretation Code Description Data Source(s) Systolic blood pressure 129 mm[Hg] 129 mm[Hg] [facility] Diastolic blood pressure 90 mm[Hg] 90 mm[Hg] [facility] Heart rate 72 /min 72 /min [facility] Respiratory rate 16 /min 16 /min [facility] Oxygen saturation in Arterial blood by Pulse oximetry 95 % 95 % [facility] Body temperature 36.89 Patricia 36.89 Patricia [facility] Body weight 137.077 kg 137.077 kg [facility] Body mass index (BMI) [Ratio] 48.78 kg/m2 48.78 kg/m2 [facility] Body height 167.6 cm 167.6 cm [facility] ID Date Data Source [id number] 05/08/2021 04:22:00 PM [facility]T [facility] Name Value Range Interpretation Code Description Data Source(s) WEIGHT 104.545 kilos 104.545 kilos [facility] HEIGHT 167.64 centimeters 167.64 centimeter [facility] ID Date Data Source [id number] 05/05/2021 08:15:[address] [facility] Name Value Range Interpretation Code Description Data Source(s) Weight Measurement Method [address] [facility] Weight 3680 3680 [facility] Temperature Source 7 7 [facility] Temperature [address] [facility] Respiratory Effort 1 1 [facility] Respiratory Rate 18 18 [facility] Pulse Assessment Method 4 4 G [facility] Pulse Rate 66 66 [facility] pital Height 66 66 [facility] Blood Pressure 128/55 128/55 [facility] ID Date Data Source [id number] 05/07/2021 09:44:00 AM EDT [facility] Name Value Range Interpretation Code Description Data Source(s) WEIGHT 104 kilos 104 [facility]ilos [facility] HEIGHT 167.64 centimeters 167.64 centimeter [facility] ID Date Data Source [id number] 05/01/2021 09:46:[address] [facility] Name Value Range Interpretation Code Description Data Source(s) Weight Measurement Method [address] [facility] Weight 3668.492 3668.492 [facility] pital Temperature 98.[address] [facility] Respiratory Rate 16 16 [facility] Pulse Assessment Method 4 4 [facility] P[facility] 68 68 [facility] pital Height 66 66 [facility] pital Blood Pressure 113/59 113/59 [facility] Weight Measurement Method [address] [facility] Weight 3668.492 3668.492 [facility] pital Height 66 66 [facility] pital ID Date Data Source [id number] 05/01/2021 01:52:[address] [facility] Name Value Range Interpretation Code Description Data Source(s) Weight Measurement Method [address] [facility] Weight 3679.991 3679.991 [facility] pital Respiratory Effort 1 1 [facility] Respiratory Rate 18 18 [facility] Height 66 66 [facility] pital Weight Measurement Method [address] [facility] Weight 3679.991 3679.991 [facility] pital Respiratory Effort 1 1 [facility] Respiratory Rate 18 18 [facility] Height 66 66 [facility] pital ID Date Data Source [id number] 05/07/2021 10:54:[address] [facility] Name Value Range Interpretation Code Description Data Source(s) Weight Measurement Method [address] [facility] Weight 3680 3680 [facility] pital Temperature Source 7 7 [facility] Temperature 98.[address] [facility] Respiratory Effort 1 1 [facility] Respiratory Rate 18 18 [facility] Pulse Assessment Method 4 4 G [facility] Pulse Rate 103 103 [facility] pital Height 66 66 [facility] pital Blood Pressure 162/60 162/60 [facility] ID Date Data Source [id number] 05/02/2021 08:03:00 AM EDT [facility] Name Value Range Interpretation Code Description Data Source(s) WEIGHT 150 kilos 150 kilos [facility] HEIGHT 172.72 centimeters 172.72 centimeter [facility] ID Date Data Source [id number] 05/01/2021 11:21:00 AM EDT [facility] Name Value Range Interpretation Code Description Data Source(s) WEIGHT 136.6 kilos 136.6 kilos [facility] HEIGHT 167.64 centimeters 167.64 centimeter [facility] WEIGHT 303 kilos 303 [facility]ilos [facility] 167.64 centimeters 167.64 centimeter [facility] ID Date Data Source [id number] 04/24/2021 11:09:[address] [facility] Name Value Range Interpretation Code Description Data Source(s) Weight Measurement Method [address] [facility] Weight 3680 3680 [facility] pital Temperature Source 7 7 [facility] Temperature [address] [facility] Respiratory Effort 1 1 [facility] Respiratory Rate 18 18 [facility] Pulse Assessment Method 4 4 G [facility] Pulse Rate 88 88 [facility] pital Height 66 66 [facility] pital Blood Pressure 147/57 147/57 [facility] ID Date Data Source [id number] 04/28/2021 04:53:[address] [facility] Name Value Range Interpretation Code Description Data Source(s) Weight Measurement Method [address] [facility] Weight 3679.074 3679.074 [facility] pital Temperature Source 7 7 [facility] Temperature 98.[address] [facility] Respiratory Effort 1 1 [facility] Respiratory Rate 16 16 [facility] Pulse Assessment Method 4 4 G [facility] Pulse Rate 80 80 [facility] pital Height 66 66 [facility] pital Blood Pressure 132/72 132/72 [facility] ID Date Data Source [id number] 04/16/2021 12:24:[address] [facility] Name Value Range Interpretation Code Description Data Source(s) Weight Measurement Method [address] [facility] Weight 3680 3680 [facility] pital Temperature Source 7 7 [facility] Temperature 98.1 98.1 [facility] Respiratory Effort 1 1 [facility] Respiratory Rate 16 16 [facility] Pulse Assessment Method 4 4 G [facility] Pulse Rate 98 98 [facility] pital Height 66 66 [facility] pital Blood Pressure 111/58 111/58 [facility] Weight Measurement Method [address] [facility] Weight 3680 3680 [facility] pital Temperature Source 7 7 [facility] Temperature [address] [facility] spital Respiratory Effort 1 1 [facility] Respiratory Rate 16 16 [facility] Pulse Assessment Method 4 4 G [facility] Pulse Rate 98 98 [facility] pital Height 66 66 [facility] pital Blood Pressure 111/58 111/58 [facility] ID Date Data Source [id number] 04/19/2021 01:44:00 AM EDT [facility] Name Value Range Interpretation Code Description Data Source(s) WEIGHT 105 kilos 105 kilos [facility] HEIGHT 167.64 centimeters 167.64 centimeter [facility] ID Date Data Source [id number] 04/19/2021 01:44:00 AM EDT [facility] Name Value Range Interpretation Code Description Data Source(s) WEIGHT 131 kilos 131 kilos [facility] HEIGHT 170.18 centimeters 170.18 centimeter [facility] ID Date Data Source [id number] 04/02/2021 02:35:00 PM [facility] Name Value Range Interpretation Code Description Data Source(s) Weight Measurement Method [address] [facility] Weight 3520 3520 [facility] pital Temperature Source 7 7 [facility] Temperature 97.4 97.4 [facility] Res[facility] Effort 1 1 [facility] Respiratory Rate 18 18 [facility] Pulse Assessment Method 4 4 G [facility] Pulse Rate 94 94 [facility] pital Height 66 66 [facility] pital Blood Pressure 136/75 136/75 [facility] Weight Measurement Method [address] [facility] Weight 3520 3520 [facility] pital Temperature Source 1 1 [facility] 98.5 98.5 [facility] Respiratory Effort 1 1 [facility] Respiratory Rate 16 16 [facility] Pulse Assessment Method 4 4 G [facility] Pulse Rate 86 86 [facility] pital Height 66 66 [facility] pital Blood Pressure 131/98 131/98 [facility] Weight Measurement Method [address] [facility] Weight 3520 3520 [facility] pital Temperature Source 1 1 [facility] Temperature 98.5 98.5 [facility] Res[facility] Effort 1 1 [facility] Respiratory Rate 18 18 [facility] Pulse Assessment Method 4 4 G [facility] Pulse Rate 108 108 [facility] pital Height 66 66 [facility] pital Blood Pressure 131/92 131/92 [facility] ID Date Data Source [id number] 05/09/2021 04:32:00 PM EDT [place] [facility] Name Value Range Interpretation Code Description Data Source(s) Weight Measurement Method [address] [facility] Weight 3680 3680 [facility] pital Temperature Source 7 7 [facility] Temperature [address] [facility] spital Respiratory Effort 1 1 [facility] Respiratory Rate 18 18 [facility] Pulse Assessment Method 4 4 G [facility]ulse Rate 102 102 [facility] pital Height 66 66 [facility] pital Blood Pressure 141/79 141/79 [facility] Weight Measurement Method [address] [facility] Weight 3680 3680 [facility] pital Temperature Source 7 7 [facility] Temperature 98 [facility]ort 1 1 [facility] Respiratory Rate 16 16 [facility] Pulse Assessment Method 4 4 G [facility] Pulse Rate 122 122 [facility] pital Height 66 66 [facility] pital Blood Pressure 149/85 149/85 [facility] ID Date Data Source [id number] 03/25/2021 07:15:08 AM EDT [facility] Name Value Range Interpretation Code Description Data Source(s) TRANSFER FROM [facility] ID Date Data Source [id number] 05/09/2021 04:49:00 PM EDT [place] [facility] Name Value Range Interpretation Code Description Data Source(s) Weight Measurement Method [address] [facility] Weight 3680 3680 [facility] pital Temperature Source 7 7 [facility] Temperature 97.3 97.3 [facility] Respiratory Rate 18 18 [facility] Pulse Rate 106 106 [facility] Height 66 66 [facility] pital Blood Pressure 122/83 122/83 [facility] Weight Measurement Method [address] [facility] Weight 3680 3680 [facility] pital Temperature Source 7 7 [facility] Temperature 97.3 97.3 [facility] Respiratory Rate 18 18 [facility] Pulse Rate 106 106 [facility] pital Height 66 66 [facility] Blood Pressure 122/83 122/83 [facility] ID Date Data Source [id number] 03/19/2021 08:59:00 AM EDT [facility] Name Value Range Interpretation Code Description Data Source(s) Weight Measurement Method [address] [facility] Weight 3680 3680 [facility] pital Temperature Source 7 7 [facility] Temperature 99.8 99.8 [facility] Respiratory Effort 1 1 [facility] Respiratory Rate 18 18 [facility] Pulse Rate 117 117 [facility] Height 66 66 [facility] pital Blood Pressure 142/72 142/72 [facility] Weight Measurement Method [address] [facility] Weight 3680 3680 [facility] pital Temperature Source 7 7 [facility] Temperature 99.8 99.8 [facility] Respiratory Effort 1 1 [facility] Respiratory Rate 18 18 [facility] Pulse Rate 117 [facility] Height 66 66 [facility] pital Blood Pressure 142/72 142/72 [facility] ID Date Data Source [id number] 05/09/2021 02:14:00 PM EDT [facility] Name Value Range Interpretation Code Description Data Source(s) Weight Measurement Method [address] [facility] Weight 3680 3680 [facility] pital Temperature Source 7 7 [facility] Temperature [address] [facility] spital Respiratory Rate 16 16 [facility] Pulse Assessment Method 4 4 G [facility] Pulse Rate 68 68 [facility] pital Height 66 66 [facility] pital Blood Pressure 113/59 113/59 [facility] Weight Measurement Method [address] [facility] Weight 3680 3680 [facility] pital Temperature Source 7 7 [facility] Temperature [address] [facility] spital Respiratory Rate 20 20 [facility] Pulse Rate 110 110 [facility] pital Height 66 66 [facility] pital Blood Pressure 135/70 135/70 [facility] ID Date Data Source [id number] 03/06/2021 10:34:00 PM EDT [facility] Name Value Range Interpretation Code Description Data Source(s) Weight Measurement Method [address] [facility] Weight 3680 3680 [facility] pital Temperature Source 7 7 [facility] Temperature 98.4 98.4 [facility] Respiratory Effort 1 1 [facility] Respiratory Rate 16 16 [facility] Pulse Assessment Method 4 4 G [facility] Pulse Rate 78 78 [facility] pital Height 66 66 [facility] pital Blood Pressure 129/88 129/88 [facility] Weight Measurement Method [address] [facility] Weight 8113.011 8113.011 [facility] pital Temperature Source 7 7 [facility] Temperature 98.4 98.4 [facility] Respiratory Effort 1 1 [facility] Respiratory Rate 18 18 [facility] Pulse Assessment Method 4 4 G [facility] Pulse Rate 109 109 [facility] pital Height 66 66 [facility] pital Blood Pressure 145/74 145/74 [facility] ID Date Data Source [id number] 02/26/2021 08:59:13 AM EDT [facility] Name Value Range Interpretation Code Description Data Source(s) TRANSFER FROM [facility] ID Date Data Source [id number] 05/09/2021 08:17:[address] [facility] spital Name Value Range Interpretation Code Description Data Source(s) Weight Measurement Method [address] [facility] Weight 3680 3680 [facility] pital Temperature Source 7 7 [facility] Temperature [address] [facility] spital Respiratory Effort 1 1 [facility] Respiratory Rate 20 20 [facility] Pulse Assessment Method 4 4 G [facility] Pulse Rate 108 108 [facility] pital Height 66 66 [facility] pital Blood Pressure 124/58 124/58 [facility] Weight Measurement Method [address] [facility] Weight 3680 3680 [facility] pital Temperature Source 7 7 [facility] Temperature [address] [facility] spital Respiratory Effort 1 1 [facility] Respiratory Rate 18 18 [facility] Pulse Assessment Method 4 4 G [facility] Pulse Rate 94 94 [facility] pital Height 66 66 [facility] pital Blood Pressure 126/81 126/81 [facility] Weight Measurement Method [address] [facility] Weight 3680 3680 [facility] pital Temperature Source 7 7 [facility] Temperature [address] [facility] spital Respiratory Effort 1 1 [facility] Respiratory Rate 18 18 [facility] Pulse Assessment Method 4 4 G [facility] Pulse Rate 94 94 [facility] pital Height 66 66 [facility] pital Blood Pressure 126/81 126/81 [facility] ID Date Data Source [id number] 04/19/2021 01:44:00 AM EDT [facility] Name Value Range Interpretation Code Description Data Source(s) WEIGHT 136.6 kilos 136.6 kilos [facility] HEIGHT 170.18 centimeters 170.18 centimeter s [facility] WEIGHT 137.7 kilos 137.7 kilos [facility] HEIGHT 170.18 centimeters 170.18 centimeter s [facility] WEIGHT 137.2 kilos 137.2 kilos [facility] HEIGHT 170.18 centimeters 170.18 centimeter s [facility] WEIGHT 137.2 kilos 137.2 kilos [facility] HEIGHT 152.4 centimeters 152.4 centimeters [facility] WEIGHT 137.2 kilos 137.2 kilos [facility] HEIGHT 170.18 centimeters 170.18 centimeter s [facility] WEIGHT 134.5 kilos 134.5 kilos [facility] HEIGHT 170.18 centimeters 170.18 centimeter s [facility] ID Date Data Source [id number] 04/19/2021 01:44:00 AM EDT [facility] Name Value Range Interpretation Code Description Data Source(s) WEIGHT 136.3 kilos 136.3 kilos [facility] HEIGHT 152.4 centimeters 152.4 centimeters [facility] WEIGHT 136.3 kilos 136.3 kilos [facility] HEIGHT 170.18 centimeters 170.18 centimeter s [facility] WEIGHT 136.8 kilos 136.8 kilos [facility] HEIGHT 170.18 centimeters 170.18 centimeter s [facility] WEIGHT 131.5 kilos 131.5 kilos [facility] HEIGHT 170.18 centimeters 170.18 centimeter s [facility] WEIGHT 128.8 kilos 128.8 kilos [facility] HEIGHT 170.18 centimeters 170.18 centimeter s [facility] WEIGHT 126.8 kilos 126.8 kilos [facility] HEIGHT 170.18 centimeters 170.18 centimeter s [facility] WEIGHT 124 kilos 124 kilos [facility] HEIGHT 170.18 centimeters 170.18 [facility]imeter [facility] ID Date Data Source [id number] 10/29/2020 09:38:25 PM EDT [facility] Name Value Range Interpretation Code Description Data Source(s) PREFERRED NAME Romel Urena [facility] TRANSFER FROM [facility] ID Date Data Source [id number] 04/19/2021 01:44:00 AM EDT [facility] Name Value Range Interpretation Code Description Data Source(s) WEIGHT 124 kilos 124 kilos [facility] HEIGHT 167.64 centimeters 167.64 centimeter s [facility] ID Date Data Source [id number] 07/18/2020 09:56:40 PM EST [facility] Name Value Range Interpretation Code Description Data Source(s) PREFERRED NAME Romel Romel [facility] Hospital TRANSFER FROM [facility] ID Date Data Source [id number] 04/19/2021 01:43:00 AM EDT [facility] Name Value Range Interpretation Code Description Data Source(s) WEIGHT 122.8 kilos 122.8 kilos [facility] HEIGHT 167.64 centimeters 167.64 centimeter [facility] WEIGHT 100 kilos 100 kilos [facility] HEIGHT 167.64 centimeters 167.64 centimeter s [facility] ID Date Data Source [id number] 04/19/2021 01:43:00 AM EDT [facility] Name Value Range Interpretation Code Description Data Source(s) WEIGHT 124.2 kilos 124.2 kilos [facility] HEIGHT 167.64 centimeters 167.64 centimeter [facility] WEIGHT 123.4 kilos 123.4 kilos [facility] HEIGHT 167.64 centimeters 167.64 centimeter [facility] WEIGHT 123.9 kilos 123.9 kilos [facility] HEIGHT 167.64 centimeters 167.64 centimeter [facility] WEIGHT 123.9 kilos 123.9 kilos [facility] HEIGHT 152.4 centimeters 152.4 centimeters [facility] WEIGHT 119.6 kilos 119.6 kilos [facility] HEIGHT 167.64 centimeters 167.64 centimeter s [facility] WEIGHT 118.2 kilos 118.2 kilos [facility] HEIGHT 167.64 centimeters 167.64 centimeter [facility] WEIGHT 112.6 kilos 112.6 kilos [facility] HEIGHT 167.64 centimeters 167.64 centimeter s [facility] WEIGHT 100 kilos 100 kilos [facility] HEIGHT 167.64 centimeters 167.64 centimeter [facility] ID Date Data Source [id number] 04/19/2021 01:43:00 AM EDT [facility] Name Value Range Interpretation Code Description Data Source(s) WEIGHT 100 kilos 100 kilos [facility] HEIGHT 167.64 centimeters 167.64 centimeter [facility] ID Date Data Source [id number] 04/19/2021 01:43:00 AM EDT [facility] Name Value Range Interpretation Code Description Data Source(s) WEIGHT 110 kilos 110 kilos [facility] HEIGHT 167.64 centimeters 167.64 centimeter [facility] WEIGHT 100 kilos 100 kilos [facility] HEIGHT 167.64 centimeters 167.64 centimeter [facility] ID Date Data Source [id number] 04/19/2021 01:43:00 AM EDT [facility] Name Value Range Interpretation Code Description Data Source(s) WEIGHT 104.4 kilos 104.4 kilos [facility] HEIGHT 152.4 centimeters 152.4 centimeters [facility] WEIGHT 100 kilos 100 kilos [facility] HEIGHT 167.64 centimeters 167.64 centimeter [facility] Patient Treatment Plan of Care Planned Activity Planned Date Details Description Data Source (s) Sertraline 50 MG Oral Tablet 04/07/2021 12:00:00 AM [facility] Prazosin 1 MG Oral Capsule 04/05/2021 10:00:00 PM [facility] Ondansetron 4 MG Disintegrating Oral Tablet 04/05/2021 06:25:36 AM [facility] Magnesium Hydroxide 80 MG/ML Oral Suspension 04/05/2021 06:25:35 AM [facility] Aluminum Hydroxide 40 MG/ML / Magnesium Hydroxide 40 MG/ML / Simethicone 4 MG/ML Oral Suspension 04/05/2021 06:25:35 AM EDT [facility] Melatonin 5 MG Oral Tablet 04/05/2021 06:25:23 AM [facility] aripiprazole 10 MG Oral Tablet 03/25/2021 12:00:00 AM [facility] Escitalopram 5 MG Oral Tablet 03/15/2021 12:00:00 AM [facility] Prazosin 2 MG Oral Capsule 03/15/2021 12:00:00 AM [facility] topiramate 25 MG Oral Tablet 02/26/2021 12:00:00 AM [facility] Sertraline 50 MG Oral Tablet 02/26/2021 12:00:00 AM [facility] Loratadine 10 MG Oral Tablet 02/26/2021 12:00:00 AM [facility] Lurasidone Hydrochloride 80 MG Oral Tablet 02/26/2021 12:00:00 AM [facility] topiramate 25 MG Oral Tablet 02/26/2021 12:00:00 AM [facility] Sertraline 50 MG Oral Tablet 02/26/2021 12:00:00 AM [facility] Lurasidone Hydrochloride 80 MG Oral Tablet 02/26/2021 12:00:00 AM [facility] Loratadine 10 MG Oral Tablet 02/26/2021 12:00:00 AM [facility] Propranolol Hydrochloride 10 MG Oral Tablet 02/25/2021 12:00:00 AM [facility] Prazosin 2 MG Oral Capsule 02/25/2021 12:00:00 AM [facility] montelukast 10 MG Oral Tablet 02/25/2021 12:00:00 AM [facility] Trazodone Hydrochloride 50 MG Oral Tablet 02/25/2021 12:00:00 AM [facility] Pravastatin Sodium 20 MG Oral Tablet 02/25/2021 12:00:00 AM [facility] Trazodone Hydrochloride 50 MG Oral Tablet 02/25/2021 12:00:00 AM [facility] Propranolol Hydrochloride 10 MG Oral Tablet 02/25/2021 12:00:00 AM [facility] Prazosin 2 MG Oral Capsule 02/25/2021 12:00:00 AM [facility] Pravastatin Sodium 20 MG Oral Tablet 02/25/2021 12:00:00 AM [facility] montelukast 10 MG Oral Tablet 02/25/2021 12:00:00 AM [facility] chlorproMAZINE (THORAZINE) 50 MG/2ML injection 02/22/2021 05:23:23 PM [facility] diphenhydrAMINE (BENADRYL) 50 MG/ML injection 02/22/2021 05:23:16 P M [facility] Hydroxyzine Hydrochloride 50 MG Oral Tablet 02/21/2021 08:18:25 PM [facility] Magnesium Hydroxide 80 MG/ML Oral Suspension 02/21/2021 08:18:18 PM [facility] 2 ML aripiprazole 200 MG/ML Prefilled Syringe [Abilify ] 06/18/2020 12:00:00 AM [facility] duloxetine 30 MG Delayed Release Oral Capsule 12/28/2019 12:00:00 A M [facility] Sertraline 50 MG Oral Tablet [facility] Propranolol Hydrochloride 10 MG Oral Tablet [facility] Prazosin 1 MG Oral Capsule [facility] Ondansetron 4 MG Oral Tablet [facility] Citalopram 20 MG Oral Tablet [facility]
[2021-05-10 01:14] LABS: HEMATOCRIT 36.1 % (36.0-47.0); HEMOGLOBIN 11.7 g/dl (12.0-15.5); MEAN CORPUSCULAR HEMOGLOBIN 29.3 pg (27.0-33.0); MEAN CORPUSCULAR HGB CONC 32.4 g/dl (32.0-36.5); MEAN CORPUSCULAR VOLUME 90.3 fl (80.0-96.0); PLATELET COUNT, AUTOMATED 245 10^3/uL (150-450); WHITE BLOOD COUNT 8.7 10^3/uL (4.0-10.0)
[2021-05-10 01:38] LABS: AMPHETAMINES LEVEL URINE NEGATIVE (NEGATIVE); BARBITURATES URINE NEGATIVE (NEGATIVE); BENZODIAZEPINES URINE POSITIVE (NEGATIVE); CANNABINOIDS URINE NEGATIVE (NEGATIVE); COCAINE METABOLITE URINE NEGATIVE (NEGATIVE); METHADONE URINE NEGATIVE (NEGATIVE); OPIATES URINE NEGATIVE (NEGATIVE); PHENCYCLIDINE URINE NEGATIVE (NEGATIVE)
[2021-05-10 01:45] LABS: HCG, SERUM QUALITATIVE NEGATIVE (NEGATIVE)
[2021-05-10 01:46] LABS: ACETAMINOPHEN LEVEL < 2.0 UG/ML (10.0-30.0); ALBUMIN 3.7 GM/DL (3.2-5.2); ALT/SGPT 47 U/L (12-78); BILIRUBIN,DIRECT < 0.1 MG/DL (0.0-0.2); BILIRUBIN,TOTAL 0.3 MG/DL (0.2-1.0); BLOOD UREA NITROGEN 17 MG/DL (7-18); CALCIUM LEVEL 8.8 MG/DL (8.5-10.1); CARBON DIOXIDE LEVEL 25 MEQ/L (21-32); CHLORIDE LEVEL 110 MEQ/L (98-107); CREATININE FOR GFR 0.84 MG/DL (0.55-1.30); ETHYL ALCOHOL (ETHANOL) < 0.003 % (0.000-0.010); GLUCOSE, FASTING 97 MG/DL (70-100); POTASSIUM SERUM 3.9 MEQ/L (3.5-5.1); SALICYLATE LEVEL < 1.7 MG/DL (5.0-30.0); SODIUM LEVEL 139 MEQ/L (136-145); THYROID STIMULATING HORMONE 0.942 uIU/ML (0.463-3.98)
[2021-05-10 12:21] VITALS: BP 135/63
== END 2021-05-10 13:08 | disposition home or self-care (01) ==
LOC: M ED 23:31
DX: F43.0 Acute stress reaction (principal); F31.9 Bipolar disorder, unspecified; Z88.8 Allergy status to other drugs, medicaments and biological substances; Z79.899 Other long term (current) drug therapy

== ENCOUNTER 2021-05-12 02:26 | Emergency (ER) | payer OTHER ==
[~2021-05-12] VITALS: Ht 167.6 cm; Wt 137.8 kg
[2021-05-12 02:27] VITALS: BP 135/95
--- OUTSIDE RECORDS SUMMARY | 2021-05-12 02:40 | CCD ---
Author Author [facility] Address Unknown Phone Unavailable Support Name Relationship Address Phone TULIO HUTCHISON Next Of Kin [address] [facility] [address] [place] [address] LIVING, TRANSITIONAL Next Of Kin [address] [place] [address] Unavailable N, PER PT ONE Next Of Kin 18 [facility] [address] [address] WILMAR LOZA Next Of Kin [address] [place] [address] NO ONE, PATIENT PER Next Of Kin [address] [place] [address] JOAN WOODWARD Next Of Kin Unknown Unavailable Yamileth Aleman Next Of Kin [address] [place] [address] CONTACT, NO Next Of Kin Unknown NO, CONTACT Next Of Kin Unknown U Next Of Kin Unknown Unavailable TLS, RESIDENTS [facility] Next Of Kin [address] [place] [address] Camelia Martinez Next Of Kin [address] [place] [address] UN Next Of Kin Unknown Unavailable none to, list Next Of Kin [address] [facility] [address] [place] [address] ALIZA HATCH Next Of Kin [address] [place] [address] KAREN GODFREY Next Of Kin [address] [place] [address] TL, S Next Of Kin [address] [place] [address] PEPPER TORIBIO Next Of Kin Unknown UE Next Of Kin Unknown Unavailable STEPH PEPPER Next Of Kin [address] [place] [address] S Next Of Kin Unknown Unavailable Mainor HATCH Next Of Kin [address] [place] [address] ST Next Of Kin Unknown Unavailable Jorge HATCH Next Of Kin [address] [place] [address] Care Team Providers Care Forestry Foreman Name Role Phone LaBarge, Zeyad Unavailable SYSTEM [...] Unavailable WADE KELLEY MD Unavailable Unavailable WADE KELLYE MD Unavailable Unavailable WADE KELLEY MD Unavailable [...] Unavailable Unavailable COLLEEN, BOGDAN SMITH Unavailable Unavailable COLLEENBOGDAN MD Unavailable Unavailable COLLEEN, BOGDAN SMITH Unavailable Unavailable Feuga, Santiago Unavailable Feuga, Santiago Unavailable Feuga, Santiago Unavailable Feuga, Santiago Unavailable Sohail GROVER MD Unavailable Unavailable ANSHUL STRAUSS MD Unavailable Unavailable ANSHUL STRAUSS MD Unavailable Unavailable ANSHUL STRAUSS MD Unavailable Unavailable ANSHUL STRAUSS MD Unavailable Unavailable ANSHUL STRAUSS MD Unavailable Unavailable ANSHUL STRAUSS MD Unavailable Unavailable NILEDUARDO PANDYA MD Unavailable Unavailable EDUARDO JERRY MD Unavailable Unavailable EDUARDO JERRY MD Unavailable Unavailable EDUARDO JERRY MD Unavailable Unavailable EDUARDO JERRY MD Unavailable Unavailable NIZARRamiro MD Unavailable Unavailable NIZARamiro Rubio MD Unavailable Unavailable NIZARamiro Rubio MD Unavailable Unavailable NIZARamiro Rubio MD Unavailable Unavailable NIZARamiro R AYAN SMITH Unavailable Unavailable NIZARamiro R AYAN SMITH Unavailable Unavailable NIZAR R AYAN SMITH Unavailable Unavailable NIZARamiro R AYAN SMITH Unavailable Unavailable NIZAR R AYAN SMITH Unavailable Unavailable NIZARamiro R AYAN SMITH Unavailable Unavailable NIZARamiro R AYAN SMITH Unavailable Unavailable ALBINZARamiro Rubio MD Unavailable Unavailable ALBINZARamiro Rubio MD Unavailable Unavailable Ramiro DIAMOND MD Unavailable Unavailable Ramiro DIAMOND MD Unavailable Unavailable Ramiro DIAMOND MD Unavailable Unavailable Ramiro DIAMOND MD Unavailable Unavailable Ramiro DIAMOND MD Unavailable Unavailable Ramiro DIAMOND MD Unavailable Unavailable Sohail GROVER MD Unavailable Unavailable Sohail GROVER MD Unavailable Unavailable Divya Orozco STREET LIGHT SERVICER SUPERVISOR Unavailable Unavailable Cortney, Vish STREET LIGHT SERVICER SUPERVISOR Unavailable Cortney, Vish STREET LIGHT SERVICER SUPERVISOR Unavailable Cortney, Vish STREET LIGHT SERVICER SUPERVISOR Unavailable Mariam HICKS MD Unavailable Unavailable Mariam [...] HICKS MD Unavailable Unavailable Gonzalo Hameed Unavailable Gonzalo Hameed Unavailable Gonzalo Hameed Unavailable Capogreco, D Leeroy Unavailable Capogreco, D Leeroy Unavailable Capogreco, D Leeroy Unavailable Capogreco, D Leeroy Unavailable WILLIAM BRO MD Unavailable Unavailable COLBY, PROTESTANT Unavailable Unavailable BOWMAN, PROTESTANT MD Unavailable Unavailable BOWMAN, PROTESTANT MD Unavailable Unavailable BOWMAN, PROTESTANT MD Unavailable Unavailable BOWMAN, PROTESTANT MD Unavailable Unavailable BOWMAN, PROTESTANT MD Unavailable Unavailable BOWMAN, PROTESTANT MD Unavailable Unavailable BOWMAN, PROTESTANT MD Unavailable Unavailable Pedro Keith Unavailable Pedro Keith Unavailable Janette Martinez MD Unavailable Unavailable Nicole Grant MD Unavailable Unavailable Nicole Grant MD Unavailable [...] K Marky MD Unavailable Unavailable Nicole Kent [facility]-ST[facility] LIGHT SERVICER SUPERVISOR Unavailable Unavailable Nicole Kent [facility] LIGHT SERVICER SUPERVISOR Unavailable Unavailable Nicole Kent Tammie [facility]RE[address] LIGHT SERVICER SUPERVISOR Unavailable Unavailable Nicole Kent [facility] LIGHT SERVICER SUPERVISOR Unavailable Unavailable Nicole Kent [facility] LIGHT SERVICER SUPERVISOR Unavailable Unavailable DonteNicole rai PMH-STREET LIGHT SERVICER SUPERVISOR Unavailable Unavailable Nicole Kent Tammie PMH-STRE[address] LIGHT SERVICER SUPERVISOR Unavailable Unavailable Nicole Kent Tammie [facility]RE[facility] LIGHT SERVICER SUPERVISOR Unavailable Unavailable Maria De Jesus CABRERA Unavailable [...] Gonzalo HAMEED . Unavailable Unavailable Liliam Negron STREET LIGHT SERVICER SUPERVISOR Unavailable Unavailable Sohail Muñoz MD Unavailable Unavailable Sohail Muñoz MD Unavailable Unavailable Sohail Muñoz MD Unavailable Unavailable MIO, YOLANDE MD Unavailable [...] Unavailable Unavailable MIO, YOLANDE MD Unavailable Unavailable LULEJIAN, G FORTUNATO DO [...] Unavailable Megna, L Deejay PA-C Unavailable Unavailable [place], F Zaki PA Unavailable Unavailable Macario, F Zaki PA Unavailable Unavailable [place], F Zaki PA Unavailable Unavailable Macario, F Zaki PA Unavailable Unavailable Macario, F Zaki PA Unavailable Unavailable Macario, F Zaki PA Unavailable Unavailable [place], F Zaki PA Unavailable Unavailable [place], F Zaki PA Unavailable Unavailable [place], F Zaki PA Unavailable Unavailable [place], F Zaki PA Unavailable Unavailable ZEGIL, D THERESA CONSTRUCTION CONTROLLER Unavailable Unavailable ZEGIL, D THERESA CONSTRUCTION CONTROLLER Unavailable Unavailable ZEGIL, D THERESA CONSTRUCTION CONTROLLER Unavailable Unavailable AL-Silvio, Ramón MD Unavailable Unavailable [...] Unavailable Unavailable RAJASEKARAN, PAKKAM MD Unavailable Unavailable Pedro KEITHIN Unavailable Unavailable Janette Martinez MD Unavailable Unavailable [...] is protected by Article 27-F of the [facility] Public Health law. If you continue you may have access to information: Regarding HIV / AIDS; Provided by facilities licensed or operated by the [facility] Office of Mental Health; or Provided by the [facility] Office for People With Developmental Disabilities. If such information is present, then the following [facility] mandated warning applies: This information has been [...] law may result in a fine or fci sentence or both. A general authorization for the release of medical or other information is NOT sufficient authorization for further disc losure. Allergies and Adverse Reactions Type Description Substance Reaction Status Data Source(s ) Drug allergy Drug allergy risperidone Unknown Reaction [facility] Drug allergy Drug allergy haloperidol (From Haldol) Unknown Reaction [facility] Propensity to adverse reactions to substance Risperdal Risperidone 1 MG Oral Tablet [Risperdal] Active [facility] Drug allergy risperidone risperidone ADDITIONAL [facility]PECIFIED [facility] Drug allergy haloperidol haloperidol ADDITIONAL UNSPECIFIED [facility] SEASONAL ALLERGIES SEASONAL ALLERGIES [facility] ([facility]) No Allergies No Allergies [facility] ([facility]) No allergies to food No allergies to food [facility] ([facility]) NKDA NKDA [facility] ([facility]) Drug allergy haloperidol [facility]ol [facility] Family History Family Member Name Family Member Gender Family Member Status Date o f Status Description Data Source(s) Unknown Male Condition Family Member ADD / ADHD S [facility] Encounters Encounter Providers Location Date Indications Data Source(s ) Inpatient Attender: BROOKLYN ONEILL MDAttender: ZEESHAN GROVER MDAdmitter: BROOKLYN ONEILL MD ER-3RD 05/06/2021 02:17:00 PM EDT - 05/08/2021 04:22:00 PM EDT [facility] Patient discharged. Emergency Attender: THERESA BARAHONA [facility] ED-ED 04/12 07:56:00 PM EDT - 05/05/2021 11:21:00 PM EDT suicidal ideation [facility] suicidal ideation Patient discharged. Inpatient Attender: BOGDAN ALMAGUER MDAtten víctor: DYLAN CABRERAAttender: BROOKLYN ONEILL MDAttender: KYLIE العلي MDAdmitter: BROOKLYN ONEILL MD ER-3RD 05/01/2021 04:51:00 PM EDT - 05/05/2021 11:59:00 AM EDT [facility] Patient discharged. Emergency Attender: Zaki OWENS ED-ED 01:54:00 AM EDT - 05/01/2021 09:45:00 AM EDT PSYCHIATRIC [facility] PSYCHIATRIC Patient discharged. Emergency Attender: Zaki OWENS ED-ED 11:28:00 PM EDT - 05/01/2021 01:25:00 AM EDT DEPRESSION [facility] DEPRESSION Patient discharged. Emergency Attender: Angelica Martinez MDAttender: Angelica Martinez MD ED-ED 04/30/2021 07:03:00 PM EDT - 04/30/2021 10:30:00 PM EDT [facility] DEPRESSION Patient discharged. Inpatient Attender: BOGDAN ALMAGUER MDAtten víctor: BROOKLYN ONEILL MDAttender: Ramón Levy MDAdmitter: BROOKLYN ONEILL MD ER-3RD 04/27/20 04:51:00 AM EDT - 04/30/2021 02:30:00 PM EDT [facility] Patient discharged. Inpatient Attender: BROOKLYN ONEILL MDAttender: Ramón Levy MDAdmitter: BROOKLYN ONEILL MD ER-3RD 04/26/2021 02:30:00 AM EDT - 04/26/2021 03:15:00 PM EDT [facility] Patient discharged. Emergency Attender: LAUREEN LUIS [id number] 021 01:05:00 PM EDT - 04/24/2021 04:29:00 PM EDT [facility] Patient discharged. Emergency Attender: Zaki OWENS ED-ED 08:53:00 PM EDT - 04/24/2021 11:08:00 AM EDT SUICIDAL THOUGHTS,ANXIETY [facility] SUICIDAL THOUGHTS,ANXIETY Patient discharged. Emergency Attender: Ramón Levy MD ER-ER 1 10:29:00 PM EDT - 04/21/2021 03:43:00 PM EDT [facility] Patient discharged. Emergency Attender: ZEESHAN GROVER MD ER-ER 03/2021 01:17:00 AM EDT - 04/19/2021 02:55:00 PM EDT [facility] Patient discharged. Emergency Attender: KENRICK ZHOU PAAttender: Zaki OWENS ED-ED 04/17/2021 01:21:00 AM EDT - 04/17/2021 01:48:00 PM EDT CONSUMED CLEANING AGENT [facility] CONSUMED CLEANING AGENT Patient discharged. [facility]-billable [facility] 04/14/2021 12:00:00 AM EDT [facility]) Emergency Attender: Nils Argueta MD ER-ER 2020 08:28:00 PM EDT - 04/14/2021 04:43:00 PM EDT [facility] Patient discharged. Emergency Attender: THERESA [facility] ED-ED 08/2020 03:11:00 AM EDT - 04/13/2021 06:45:00 PM EDT THINKING OF SELF HARM [facility] THINKING OF SELF HARM Patient discharged. Inpatient Attender: BOGDAN ALMAGUER MDAtten víctor: ZEESHAN GROVER MDAdmitter: BOGDAN ALMAGUER MD ER-3RD 04/09/2021 12:50:00 PM EDT - 04/11/2021 10:46:00 AM EDT [facility] Patient discharged. Inpatient Attender: Deejay OWENS-stitch bonding machine tender helper: JOSE HICKS MDAttender: Leeroy Sharpttender: LEEROY HAMEED .Admitter: JOSE HICKS MDReferrer: JOSE HICKS MD [id number] 04/05/2021 12:00:00 AM EDT - 04/07/2021 12:21:00 PM EDT [facility] suicidal Patient discharged. Emergency Attender: LAUREENDeann LUIS ES1-CP2 021 11:17:00 PM EDT - 04/04/2021 01:56:00 PM EDT [facility] Patient discharged. Inpatient Attender: BOGDAN Hassan víctor: BROOKLYN ONEILL MDAttender: Nils Argueta MDAdmitter: BROOKLYN ONEILL MD ER-3RD 04/01/2021 0 6:08:00 PM EDT - 04/03/2021 10:22:00 AM EDT [facility] Patient discharged. Emergency Attender: KENRICK ZHOU PAAttender: Zaki OWENS ED-ED 03/27/2021 10:08:00 PM EDT - 03/30/2021 06:15:00 AM EDT SUICIDAL THOUGHTS,ANXIETY [facility] SUICIDAL THOUGHTS,ANXIETY Patient discharged. Emergency Attender: Leeroy RUIZttender: Leeroy OWENS ED-ED 03/25/2021 08:09:00 PM EDT - 03/25/2021 11:25:00 PM EDT MENTAL HEALTH ISSUES [facility] MENTAL HEALTH ISSUES Patient discharged. Inpatient Attender: Velasquez Lemos er: VELASQUEZ Richmondender: TARAH BOWMAN MDAdmitter: TARAH BOWMAN MD [id number] 03/21/2021 02:54:00 AM EDT - 03/24/2021 12:21:00 PM EDT [facility] Patient discharged. Psychiatric Diagnostic Evaluation (Non-Medical) [facility] 03/20/2021 01:00:00 AM EDT - 03/20/2021 01:00:00 AM EDT [facility] ([facility]) Emergency Attender: THERESA BARHAONA [facility] ED-ED 03/2021 12:32:00 AM EDT - 03/20/2021 01:00:00 AM EDT MENTAL HEALTH ISSUES [facility] MENTAL HEALTH ISSUES Patient discharged. Attender: Zeyad LaBarge 03/20/2021 12:00:00 AM EDT [facility] ([facility] Outpatient Attender: Darren Negron STREET LIGHT SERVICER SUPERVISOR 03/17/2021 09:0 7:00 PM EDT [facility] Outpatient Attender: Darren Negron NPAdm itter: Divya Orozco NPConsultant: Divya Orozco NP 03/16/2021 09:50:00 PM EDT [facility] Su[facility] Ideations Inpatient Attender: Divya Orozco NPAdmitter: Divya gonzales STREET LIGHT SERVICER SUPERVISOR 03/16/2021 09:50:00 PM EDT - 03/19/2021 11:43:00 AM EDT [facility] Patient discharged. Outpatient Attender: Vish Barr NPAd mitter: Divya Orozco NPConsultant: Divya Orozco NP 03/16/2021 09:50:00 PM EDT Suicidal Ideations [facility] Suicidal Ideations Outpatient Attender: Divya Orozco NPA dmitter: Divya Orozco NPConsultant: Divya Orozco NP 03/16/2021 09:50:00 PM EDT Suicidal Ideations [facility] Suicidal Ideations Emergency Attender: Anoop Bowman ER-ER 03/16/20 05:07:00 AM EDT - 03/16/2021 07:30:00 PM EDT [facility] Patient discharged. Emergency Attender: Leeroy OWENS ED-ED 021 11:49:00 PM EDT - 03/16/2021 01:34:00 AM EDT MEDICATION SWITCH FOR MENTAL HEALTH [facility] MEDICATION SWITCH FOR MENTAL HEALTH Patient discharged. IP PSYCH Attender: WADE KELLEY MD Attender: YOLANDE LIEBERMAN MDAttender: Marky Grant MDAdmitter: YOLANDE LIEBERMAN MDConsultant: William CoeirConsultant: WILLIAM BRO MD 2E-2A 03/13/2021 11:02:00 AM EDT - 03/15/2021 01:22:00 PM EDT [facility] Patient discharged. non-billable [facility] 03/12/2021 12:00:00 AM EDT [facility] ([facility]) Emergency Attender: Leeroy Sykesender: KENRICK OWENS ED-ED 03/05/2021 06:28:00 PM EDT - 03/06/2021 01:47:00 PM EDT MENTAL HEALTH ISSUES [facility] MENTAL HEALTH ISSUES Patient discharged. Emergency Attender: Ramirez Muñoz MD ED-ED 03/03/20 12:40:00 AM EDT - 03/03/2021 09:59:00 AM EDT MENTAL HEALTH [facility] MENTAL HEALTH Patient discharged. Emergency Attender: Nils Argueta MD ER-ER 2020 02:30:00 AM EDT - 03/02/2021 11:27:00 AM EDT [facility] Patient discharged. Emergency Attender: Nils Argueta MD ER-ER 2020 09:08:00 PM EDT - 03/01/2021 12:39:00 PM EDT [facility] Patient discharged. Outpatient [address] [id number] Integration Team 02/27/2021 02:45:00 PM EDT [facility] ([facility]) Patient admitted. Inpatient Attender: AYAN Clifton nder: Velasquez KeithAttender: VELASQUEZ KEITHAdmitter: AYAN DIAMOND MDReferrer: PROVIDER SYSTEM IN [facility] 02/21/2021 12:14:00 PM EDT - 02/25/2021 11:39:00 AM EDT [facility] Patient discharged. Emergency Attender: Ramón Levy MD ER-ER 0 02/20/2021 10:45:00 PM EDT - 02/21/2021 11:44:00 PM EDT [facility] Patient discharged. Emergency Attender: Ramón Levy MD ER-ER 0 02/19/2021 02:28:00 AM EDT - 02/19/2021 10:15:00 AM EDT [facility] Patient discharged. Emergency Attender: Anoop Bowman ER-ER 08/09/20 21 03:10:00 AM EDT - 02/17/2021 01:54:00 PM EDT [facility] Patient discharged. Emergency Attender: Santiago RajanAttender: Anoop Hayward R-ER 02/15/2021 08:00:00 PM EDT - 02/16/2021 01:02:00 PM EDT [facility] Patient discharged. Emergency Attender: KENRICK ZHOU IN ED-ED 02/14 09:21:00 PM EDT - 02/14/2021 11:01:00 PM EDT VOMITING,DIARRHEA [facility] VOMITING,DIARRHEA Patient discharged. Inpatient Attender: DYLAN Michelle er: BROOKLYN ONEILL MDAttender: AMADA MCLEAN MDAttender: KYLIE العلي MDAdmitter: AMADA MCLEAN MD ER-3RD 01/03/2021 11:03:00 AM EDT - 02/13/2021 11:40:00 AM EDT [facility] Patient discharged. Outpatient Attender: Tammie Kent [facility] LIGHT SERVICER SUPERVISOR [facility] deann [facility] 11/13/2020 09:30:00 AM EDT - 11/13/2020 09:30:00 AM EDT [facility] ([facility]) Attender: Tammie Kent [facility] LIGHT SERVICER SUPERVISOR 11/13/2020 12: 00:00 AM EDT [facility] Inpatient Attender: BROOKLYN ONEILL MDAttender: BOGDAN ALMAGUER MDAttender: KYLIE العلي MDAdmitter: BOGDAN ALMAGUER MD ER-3RD 10/31/2020 0 8:49:00 AM EDT - 01/01/2021 01:05:00 PM EDT [facility] Patient discharged. Outpatient [id number] 10/29/2020 09:35:00 PM EDT [facility] Psych Inpatient Attender: EZESHAN GROVER MD Attender: BROOKLYN ONEILL MDAttender: ANSHUL STRAUSS MDAdmitter: BROOKLYN ONEILL MD ER-3RD 10:58:00 AM EDT - 10/29/2020 12:50:00 PM EDT [facility] Patient discharged. Extended Individual Psychotherapy - 45 min Attender: Ingrid salazar [facility] 08/27/2020 11:00:00 AM EST - 08/27/2020 11:00:00 AM EST [facility] ([facility]) Attender: [facility] 08/27/2020 12:00:00 AM EST [facility] ([facility]) Psychiatric Diagnostic Evaluation (Non-Medical) Attender: Rosa larios [facility] 08/23/2020 10:00:00 AM EST - 08/23/2020 10:00:00 AM EST [facility] ([facility]) Attender: [facility] 08/23/2020 12:00:00 AM EST [facility] ([facility]) Outpatient Referrer: FORTUNATO BUTCHER DO 07/11/2020 02 :52:00 PM EST suicide attempt, borderline personality disorder, depression [facility] suicide attempt, borderline personality disorder, depression Extended Individual Psychotherapy - 45 min Attender: Jessica Sotomayor [facility] 06/24/2020 11:00:00 AM EST - 06/24/2020 11:00:00 AM EST [facility] ([facility]) Attender: Fariba Sotomayor 06/24/2020 12:00:00 AM EST [facility] ([facility]) Inpatient Attender: FILI CANELA MDAt tender: Nils Argueta MDAttender: NILS ARGUETA MDAdmitter: FILI CANELA MD ER-3RD 06/15/2020 04:05: 00 AM EST - 06/17/2020 01:23:00 [facility] Patient [facility] Inpatient Attender: BOGDAN ALMAGUER MDAtten víctor: BROOKLYN ONEILL MDAttender: KYLIE العلي MDAdmitter: BROOKLYN ONEILL MD ER-3RD 12/2019 09:22:00 PM EDT - 05/17/2020 08:58:00 AM [facility] Patient discharged. Inpatient Attender: EDUARDO Salazar MDAttender: BOGDAN ALMAGUER MDAttender: AMADA MCLEAN MDAdmitter: AMADA MCLEAN MD ER-3RD 020 10:06:00 PM EDT - 12/13/2019 10:30:00 AM EDT [facility] Patient discharged. Inpatient Attender: BOGDAN ALMAGUER MDAtten víctor: FILI CANELA MDAttender: Ramón CHARLESMaria De Jesus Silvio MDAdmitter: BOGDAN ALMAGUER MD ER-3RD 11/02/2019 10:24:00 AM EDT - 11/08/2019 12:07:00 PM EDT [facility] Patient discharged. Inpatient Attender: BOGDAN ALMAGUER MDAtten víctor: BROOKLYN ONEILL MDAttender: AMADA MCLEAN MDAttender: ANSHUL STRAUSS MDAdmitter: AMADA MCLEAN MD ER-3RD 08/04/2019 06:28:00 PM EST - 08/11/2019 11:25:00 AM [facility] Patient [facility] Emergency Attender: ANSHUL STRAUSS MD ER-ER 1 07/13/2017 06:59:00 PM EDT - 05/18/2018 06:04:00 PM [facility] Emergency Attender: EDUARDO JERRY MD ER-ER 04/12/2018 05:21:00 PM EDT - 04/16/2018 06:48:00 PM EDT [facility] Immunizations Vaccine Date Status Description Data Source(s) COVID-19 VACCINE Sophia 11/12/2020 12:00:00 AM EDT completed DESIIS Vaccine Series Complete: YESThis Data wa s Submitted to [facility] Via [employer]. Medications Medication Brand Name Start Date Product Form Dose Route Admi nistrative Instructions Pharmacy Instructions Status Indications Reaction Description Data Source(s) Sertraline 50 MG Oral Tablet sertraline (ZOLOFT) table t 50 mg sertraline (ZOLOFT) tablet 50 mg 04/07/2021 10:45:00 AM EDT 50 mg Oral active 50 mg, Oral, Daily Standard, First dose on Wed04/07/21 at 1045, For 30 days [facility] Medication administered onsite aripiprazole 5 MG Oral Tablet ARIPiprazole (ABILIFY) t ablet 10 mg ARIPiprazole (ABILIFY) tablet 10 mg 04/07/2021 10:45:00 AM EDT 10 mg Oral active 10 mg, Oral, Daily Standard, First dose on 04/07/21 at 1045, For 30 days [facility] Medication administered onsite Sertraline 50 MG Oral Tablet Sertraline HCl 50 MG Oral Tablet (ZOLOFT) Sertraline HCl 50 MG Oral Tablet (ZOLOFT) 04/07/2021 12:00:00 AM EDT active Take 50 mg for 2 day s, then increase to 100 mg on 04/10, and increase to 150 mg on 04/13. [facility] olanzapine 5 MG/ML Injectable Solution OLANZapine (ZYP REXA) injection 10 mg OLANZapine (ZYPREXA) injection 10 mg 04/06/2021 10:45:00 PM EDT 10 mg Intramuscular completed 10 mg, Intr amuscular, Once, On 04/06/21 at 2245, For 1 dose
Reconstitute 10 mg vial with 2.1 mL SWFI; resulting solution is ~5 mg/mL; Use within 1 hour following reconstitution.
[facility] Medication administered onsite Prazosin 1 MG Oral Capsule prazosin (MINIPRESS) capsul e 1 mg prazosin (MINIPRESS) capsule 1 mg 04/05/2021 10:00:00 PM EDT 1 mg Oral active 1 mg, Oral, Nightly, First dose on 04/05/21 at 2200, For 30 days
Check vital signs before administering
[facility] Medication administered onsite olanzapine 10 MG Oral Tablet OLANZapine (ZYPREXA) tabl et 10 mg OLANZapine (ZYPREXA) tablet 10 mg 04/05/2021 07:40:57 PM EDT 10 mg Oral active 10 mg, Oral, Every 2 hours PRN, Agitation, MDD 20 mg, Starting on 04/05/21 at 1940, For 30 days [facility] Medication administered onsite Ibuprofen 400 MG Oral Tablet ibuprofen (MOTRIN) tablet 400 mg ibuprofen (MOTRIN) tablet 400 mg 04/05/2021 07:34:02 PM EDT 400 mg Oral act shea 400 mg, Oral, Every 6 hours PRN, Moderate Pain (Pain Scale Score 4-6), Headaches, Starting on 04/05/21 at 1934, For 30 days
Take with food.
[facility] Medication administered onsite multivitamin tablet 1 tablet [id number] 04/05/2021 08:00:00 AM EDT 1 {tbl} Oral active 1 tablet, Oral , Daily Standard, First dose on 04/05/21 at 0800, For 30 days [facility] Medication administered onsite Nicotine 2 MG Oral Lozenge nicotine (NICORETTE) lozeng e 2 mg nicotine (NICORETTE) lozenge 2 mg 04/05/2021 06:25:36 AM EDT 2 mg Mouth/Th roat active 2 mg, Mouth/Throat, Every 2 hours PRN, Smoking cessation, Starting on 04/05/21 at 0625, For 30 days
Should not be chewed or swallowed; allow to dissolve slowly (~20-30 minutes)
[facility] Medication administered onsite Ondansetron 4 MG Disintegrating Oral Tab let ondansetron (ZOFRAN-ODT) disintegrating tablet 4 mg ondansetron (ZOFRAN-ODT) disintegrating tablet 4 mg 04/05/2021 06:25:36 AM EDT 4 mg Oral active 4 mg, Oral, Every 6 hours PRN, Nausea, Starting on 04/05/21 at 0625, For 30 days
Dissolve on tongue.
[facility] Medication administered onsite Magnesium Hydroxide 80 [...] creatinine > 2 notify provider before administering.
[facility] Medication administered onsite Acetaminophen 325 MG [...] mg from all sources in 24 hrs.
[facility] Medication administered onsite Hydroxyzine Hydrochloride 50 MG Oral Tablet hydrOXYzin e (ATARAX) tablet 50 mg hydrOXYzine (ATARAX) tablet 50 mg 04/05/2021 06:25:35 AM EDT 50 mg Oral active 50 mg, Oral, Every 6 hours PRN, Anxiety, Sleep, Starting on 04/05/21 at 0625, For 30 days [facility] Medication administered onsite Aluminum Hydroxide 40 [...] at 0625, For 30 days
MDD 4
[facility] Medication administered onsite Melatonin 5 MG Oral Tablet melatonin tablet 5 mg melatonin t ablet 5 mg 04/05/2021 06:25:23 AM EDT 5 mg Oral active 5 mg, Oral, Nightly PRN, Sleep, Starting on 04/05/21 at 0625, For 30 days [facility] Medication administered onsite aripiprazole 10 MG Oral Tablet ARIPiprazole 10 MG Oral Tablet (ABILIFY) ARIPiprazole 10 MG Oral Tablet (ABILIFY) 03/25/2021 12:00:00 AM EDT 10 mg Oral active Take 1 tablet by mary kay th daily [facility] Escitalopram 5 MG Oral Tablet escitalopram oxalate (LE XAPRO) 5 mg tablet escitalopram oxalate (LEXAPRO) 5 mg tablet 03/15/2021 12:00:00 AM EDT 5 mg oral active anxiety with depression T carmela 1 tablet (5 mg total) by mouth 1 (one) time each day with dinner. [facility] anxiety with depression Prazosin 2 MG Oral Capsule prazosin (MINIPRESS) 2 mg c apsule prazosin (MINIPRESS) 2 mg capsule 03/15/2021 12:00:00 AM EDT 2 mg oral active post traumatic stress disorder Take 1 capsule (2 mg total) by mouth 1 (one) time each day at night. [facility] post traumatic stress disorder Lurasidone Hydrochloride 80 MG Oral Tabl et Lurasidone HCl 80 MG Oral Tablet (LATUDA) Lurasidone HCl 80 MG Oral Tablet (LATUDA) 02/26/2021 12:00:00 AM EDT 80 mg Oral active Take 1 tablet by mouth [facility] Loratadine 10 MG Oral Tablet Loratadine 10 MG Oral Tab let (CLARITIN) Loratadine 10 MG Oral Tablet (CLARITIN) 02/26/2021 12:00:00 AM EDT 10 mg Oral active Take 1 tablet by mouth daily [facility] Lurasidone Hydrochloride 80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 3:03 AM EDT</td><td></td><td></td> 04/05/2021 03:03:00 AM [facility] EKG 12-LEAD - CMAXX REPORT <td>EKG 12-LEAD - CMAXX REPORT</td><td></td><td>04/05/2021 3:02 AM EDT</td><td></td><td></td> 04/05/2021 03:02:26 AM [facility] EKG 12-LEAD - CMAXX REPORT <td>EKG 12-LEAD - CMAXX REPORT</td><td></td><td>04/05/2021 3:02 AM EDT</td><td></td><td></td> 04/05/2021 03:02:26 AM [facility] EKG 12-LEAD <td>EKG 12-LEAD</td><td>STAT </td><td>04/05/2021 3:02 AM EDT</td><td></td><td> </td> 04/05/2021 03:02:26 AM [facility] DRUGS OF ABUSE, URINE <td>DRUGS OF ABUSE, URINE</t d><td>STAT</td><td>04/05/2021 1:32 AM EDT</td><td></td><td> </td> 04/05/2021 01:32:00 AM [facility] URNLS DIP STICK/TABLET REAGENT AUTO MICROSCOPY <td>URI NALYSIS WITH MICROSCOPIC</td><td>STAT</td><td>04/05/2021 1:32 AM EDT</td><td></td><td> </td> 04/05/2021 01:32:00 AM [facility] RESPIRATORY PATHOGEN PANEL <td>RESPIRATORY PATHOGEN PANEL</td><td>Routine</td><td>04/05/2021 1:30 AM EDT</td><td></td><td> </td> 04/05/2021 01:30:00 AM [facility] COVID-19 PCR <td>COVID-19 PCR</td><td>Rou talat</td><td>04/05/2021 1:30 AM EDT</td><td></td><td> </td> 04/05/2021 01:30:00 AM [facility] GONADOTROPIN CHORIONIC QUANTITATIVE <td>BETA HCG, QUANT</td><td>Routine</td><td>04/05/2021 1:30 AM EDT</td><td></td><td> </td> 04/05/2021 01:30:00 AM [facility] ACETAMINOPHEN, RANDOM <td>ACETAMINOPHEN, RANDOM</t d><td>STAT</td><td>04/05/2021 1:30 AM EDT</td><td></td><td> </td> 04/05/2021 01:30:00 AM [facility] ETHYL ALCOHOL LEVEL <td>ETHYL ALCOHOL LEVEL</td> <td>STAT</td><td>04/05/2021 1:30 AM EDT</td><td></td><td> </td> 04/05/2021 01:30:00 AM [facility] PROTHROMBIN TIME <td>PROTIME INR</td><td>STAT </td><td>04/05/2021 1:30 AM EDT</td><td></td><td> </td> 04/05/2021 01:30:00 AM [facility] BLOOD COUNT COMPLETE AUTO&AUTO DIFRNTL WBC COUNT <td>C BC AND DIFFERENTIAL</td><td>Routine</td><td>04/05/2021 1:30 AM EDT</td><td></td><td> </td> 04/05/2021 01:30:00 AM [facility] THYROID STIMULATING HORMONE TSH <td>TSH</td><td>Routin e</td><td>04/05/2021 1:30 AM EDT</td><td></td><td> </td> 04/05/2021 01:30:00 AM [facility] HEMOGLOBIN GLYCOSYLATED A1C <td>HEMOGLOBIN A1C</td><td>Routine</td><td>04/05/2021 1:30 AM EDT</td><td></td><td> </td> 04/05/2021 01:30:00 AM [facility] SALICYLATE LEVEL <td>SALICYLATE LEVEL</td><td >STAT</td><td>04/05/2021 1:30 AM EDT</td><td></td><td> </td> 04/05/2021 01:30:00 AM [facility] LIPID PANEL <td>LIPID PANEL</td><td>Rout ine</td><td>04/05/2021 1:30 AM EDT</td><td></td><td> </td> 04/05/2021 01:30:00 AM [facility] COMPREHENSIVE METABOLIC PANEL <td>COMPREHENSIVE METABO LIC PANEL</td><td>STAT</td><td>04/05/2021 1:30 AM EDT</td><td></td><td> </td> 04/05/2021 01:30:00 AM [facility] Non-covered item or service NON-COVERED ITEM OR SERVICE 03/12 12:00:00 AM [facility] ECG ROUTINE ECG W/LEAST 12 LDS TRCG ONLY W/O I&R ELECTROCARD IOGRAM TRACING 03/27/2021 12:00:00 AM [facility] [address]64 SARS-COV-2 COVID-19 AMP PRB 03/27/2021 12:00:00 AM [facility] URNLS DIP STICK/TABLET RGNT AUTO W/O MICROSCOPY URINALYSIS A UTO W/O SCOPE 03/27/2021 12:00:00 AM [facility] COLLECTION VENOUS BLOOD VENIPUNCTURE ROUTINE VENIPUNCTURE 12:00:00 AM [facility] BLOOD COUNT COMPLETE AUTO&AUTO DIFRNTL WBC COUNT COMPLETE CB C W/AUTO DIFF WBC 03/27/2021 12:00:00 AM [facility] 09135 DRUG SCREEN QUANTALCOHOLS 03/27/2021 12:00:00 AM [facility] 30260 DRUG TEST PRSMV DIR OPT OBS 03/27/2021 12:00:00 AM [facility] MAGNESIUM ASSAY OF MAGNESIUM 03/27/2021 12:00:00 AM [facility] 11863 ANALGESICS NON-OPIOID 1 OR 2 03/27/2021 12:00:00 AM ED [facility] URINE TEST VISUAL COLOR CMPRSN METHS URINE PREGNAN CY TEST 03/27/2021 12:00:00 AM [facility] TROPONIN QUANTITATIVE ASSAY OF TROPONIN QUANT 03/27/2021 12:00:00 A M [facility] COMPREHENSIVE METABOLIC PANEL COMPREHEN METABOLIC PANEL 03/12 12:00:00 AM [facility] Infusion, normal saline solution , 1000 cc 03/27[facility] HIGH SEVERITY&THREAT FUNCJ EMERGENCY DE PT VISIT 03/27/2021 12:00:00 AM [facility] URINALYSIS MICROSCOPIC ONLY MICROSCOPIC EXAM OF URINE 2020 12:00:00 AM [facility] EMERGENCY DEPARTMENT VISIT LOW/MODER SEVERITY EMERGENCY DEPT VISIT 03/20/2021 12:00:00 AM [facility] Psychiatric Diagnostic Evaluation (Non-Medical) 03/20/2021 12:00:00 AM EDT - 03/20/2021 12:00:00 AM EDT [facility] ([facility]) Psychiatric Diagnostic Evaluation (Non-Medical) 2020 12:00:00 AM EDT [facility] ([facility]) EMERGENCY DEPARTMENT VISIT MODERATE SEVERITY EMERGENCY DEPT VISIT 03/15/2021 12:00:00 AM [facility] Injection, ketorolac tromethamine, per 15 mg 12:00:00 AM [facility] THERAPEUTIC PROPHYLACTIC/DX INJECTION SUBQ/IM THER/PROPH/PAULY G INJ SC/IM 03/06/2021 12:00:00 AM [facility] FIBRIN DGRADJ PRODUCTS D-DIMER QUANTITATIVE FIBRIN DEGRADATI ON QUANT 03/03/2021 12:00:00 AM [facility] AMYLASE ASSAY OF AMYLASE 02/14/2021 12:00:00 AM [facility] LIPASE ASSAY OF LIPASE 02/14/2021 12:00:00 AM EDT [facility] OFFICE OUTPATIENT VISIT 15 MINUTES 11/13 12:00:00 AM EDT - 11/13/2020 12:00:00 AM EDT [facility] ([facility]) OFFICE OUTPATIENT VISIT 15 MINUTES 11/13/2020 12:00:00 AM EDT [facility] ([facility]) INTRODUCE COVID19 VACC IN MUSCLE, PERC, NEW TECH 6 11/12/2020 12:00:00 AM EDT [facility] Extended Individual Psychotherapy - 45 min 08/27/2020 12:00:00 AM EST - 08/27/2020 12:00:00 AM EST [facility] ([facility]) Extended Individual Psychotherapy - 45 min 12:00:00 AM EST [facility] ([facility]) Psychiatric Diagnostic Evaluation (Non-Medical) 08/23/2020 12:00:00 AM EST - 08/23/2020 12:00:00 AM EST [facility] ([facility]) Psychiatric Diagnostic Evaluation (Non-Medical) 2020 12:00:00 AM EST [facility] ([facility]) Extended Individual Psychotherapy - 45 min 06/24/2020 12:00:00 AM EST - 06/24/2020 12:00:00 AM EST [facility] ([facility]) Extended Individual Psychotherapy - 45 min 0 12:00:00 AM EST [facility] ([facility]) Results ID Date Data Source [id number] 05/08/2021 12:28:00 PM EDT [facility] [address] [id number] NAME: YARELI HATCH#: [id number] PHYSICIAN: HUBER MEDINA #: [id number] ADM. DATE: 05/06/21PATIENT : 00 DISCH. DATE: [50}DISCHARGE SUMMARYMHU discharge planNicotine Replacement TherapySmoking Status Current some day smokeriStopEND ENDDICT: 05/08/21 1228 Electronically SignedTRANS:05/08/21 1228 DYLAN CABRERATRANS BY:DATE SIGNED:05/08/21TIME SIGNED: 1228REPORT COPY TO: Name Value Range Interpretation Code Description Data Stephanie rce(s) Supporting Document(s) ID Date Data Source [id number] 05/08/2021 12:14:00 PM EDT [facility] DISCHARGE SUMMARYPATIENT NAME: YARELI HATCH MR#: [id number] PHYSICIAN: BROOKLYN ONEILL MDAUTHOR: Dylan Aquino DATE: 05/06/21 RM#: [id number] DATE:BjwwdugCltcedrkcthkgm96-wtbw-mhu single white femaleChief Complaint"I was impulsive and did something stupid"Reason for AdmissionUnsafe behaviors with a history of poor impulse control and suicidal ideations.Patient was unable to contract for safety prior to admissionHistory of Presenting Ozwkjfb91-kgzc-erz female who was admitted to mental health on an involuntary statusafter ingesting a bottle of shampoo. Patient was brought here by police aftershe eloped numerous times from [facility]. [facility] patient stated she was discharged [...] to her that she is on an [facility] list [facility] as her place of residence. Patient was also again reminded ofthe vast amount of services she has available to her in the community such asthe [facility], case management, counselors and therapists. When [...] female who lives in a supportive housing facility,[facility]. Patient was never graduated from high school [...] second degree and chargesof disorderly conductHospital CourseHospital Aalmuc81-zjva-vnh female was admitted to mental health on [...] not experience any ill side effects from medications.[facility] staff did reach out to the treatment team requesting a meeting prior todischarge with Marilu regarding her frequent hospitalizations and what safetyplans can be put into place to prevent her from coming back. The safety planwas worked out with Madelin Michel the wastewater treatment plant instructor, and [facility]. At time of discharge patient continues to [...] by opening up to the staff at [facility] shefeels this would be an effective plan [...] is also confirmed by the staff from [facility].Patient's Discharge ConditionVital SignsVital Signs-LastResult Date TimeB/P 132/78 05/08 0822Pulse Ox 99 05/07 1234Temp 97.7 05/07 1234Pulse 63 05/07 1234Resp 16 05/07 1234Patient's Discharge ConditionDischarge Date 05/08/21Discharge Conditon stableDischarge DispositionPatient is to be discharged back to her [facility]ExaminationMusculoskeletalMuscle Strength & Tone normalGait normalStation normalMental Status [...] rce(s) Supporting Document(s) ID Date Data Source [id number] 05/07/2021 05:08:00 PM EDT [address] [id number] HEALTH HISTORY AND PHYSICALPATIENT NAME: YARELI HATCH MR#: [id number] PHYSICIAN: BROOKLYN ONEILL MDAUTHOR: Ericka Dean MD DATE: 05/06/21 RM#: [id number] Complaint/Admit ReasonIngested shampoo/conditioner to end her lifeHistory of Presenting IllnessHISTORY IS LIMITED THE PT REFUSED TO BE SEEN BY THE MEDICINE 41 yo F who presents to the hospital with police because she ingested shampooand conditoner in an effort to end her life. [facility] and told staff she did [...] seen by the medicine serviceExamVital SignsVital Signs-24 [id number] [id number] 1234Temp 97.5 97.7Pulse 77 63Resp 16 16B/P 128/83 123/78 136/84 115/75B/P MeanPulse Ox 96 99O2 DeliveryO2 Flow OycwByT1Wkgi ReviewLaboratory DataRecent Labs-48 hours05/[id number] 0051ChemistrySodium (136 - 147 mmol/L) 139Potassium (3.5 [...] TurbidUrine pH (5.0 - 8.0) 8.0Ur Specific [place] (1.010 - 1.025) 1.022Urine Protein (Negative) TraceUrine [...] psych serviceDATE SIGNED: 05/07/21 Electronically SignedTIME SIGNED: [id number] ERICKA DEAN MD Name Value Range Interpretation Code Description Data Stephanie rce(s) Supporting Document(s) ID Date Data Source [id number] 05/07/2021 12:49:00 PM EDT [address] PSYCHIATRIC ASSESSMENTPATIENT NAME: YARELI HATCH MR#: [id number] PHYSICIAN: BROOKLYN ONEILL MDAUTHOR: Dylan Aquino DATE: 05/06/21 RM#: [id number] single white femaleChief Complaint"I was impulsive and did something stupid"Reason for AdmissionUnsafe behaviors with a history of poor impulse control and suicidal ideations.Patient was unable to contract for safety prior to admissionHistory of Presenting Qespxgv27-rbuz-mly female who was admitted to mental health on an involuntary statusafter ingesting a bottle of shampoo. Patient was brought here by police aftershe eloped numerous times from [facility]. Upon arrival [facility] patient stated she was discharged [...] time of the ingestion of the substances andshe stated "I do not know&quot ;. When [...] to her that she is on an [facility] list [facility] as her place of [...] female who lives in a supportive housing facility,[facility]. Patient was never graduated from high school [...] 05/07 1234Pulse 63 05/07 1234Resp 16 05/07 1234ExaminationMu sculoskeletalMuscle Strength & Tone normalGait normalStation normalMental [...] 0051Creatinine (0.500 - 1.300 mg/dL) 0.661 05/06 005stimated GFR/1.73 m2 (mL/min) > 60 05/06 005Glucose (70 - 110 mg/dL) 99 05/06 005alcium (8.3 - 10.7 mg/dL) 9.3 05/06 005Total Bilirubin (0.1 - 1.1 mg/dL) 0.4 05/06 0051AST (6 - 38 U/L) 32 05/06 0051ALT (6 - 54 U/L) 58 H 05/06 0051Alkaline Phosphatase (45 - 117 U/L) 110 05/06 005Total Protein (6.0 - 7.8 g/dL) 8.0 H 05/06 0051Albumin (3.5 - 5.0 g/dL) 4.0 05/06 005Globulin (2.3 - 3.5 g/dL) 4.0 H 05/06 0051Albumin/Globulin Ratio (1.0 - 2.5) 1.0 05/06 005HematologyWBC (4.0 - 10.5 x10E3/uL) 8.31 05/06 0051RBC (4.20 - 5.40 x10E6/uL) 4.31 05/06 005Hgb (12.0 - 16.0 g/dL) 12.7 05/06 51Hct (37.0 - 47.0 %) 38.3 05/06 51MCV (81.0 - 99.0 fL) 88.9 05/06 005MCH (27.0 - 31.0 pg) 29.5 05/06 005MCHC (32.7 - 35.6 g/dL) 33.2 05/06 0051RDW (11.5 - 14.0 %) 12.5 05/06 0051Plt Count ( 150 - 450 x10E3/uL) 274 05/06 005MPV (6.9 - 9.5 fl) 9.8 H 05/06 005Immature Gran % (Auto) (0.1 - 2.0 %) 0.4 05/06 0051Neut % (Auto) (34 - 64 %) 69.5 H 05/06 0051Lymph % (Auto) (25 - 45 %) 23.2 L 05/06 0051Mono % (Auto) (1.7 - 10.6 %) 6.0 05/06 0051Eos % (Auto) (0.4 - 7.0 %) 0.5 05/06 0051Baso % (Auto) (0.1 - 2.0 %) 0.4 05/06 0051Abs Immat Gran (auto) (0.0 - 0.1 x10E3/uL) 0.03 05/06 005bsolute Neuts (auto) (1.2 - 7.6 x10E3/uL) 5.78 05/06 005bsolute Lymphs (auto) (1.0 - 3.5 x10E3/uL) 1.93 05/06 005bsolute Monos (auto) (0.1 - 1.0 x10E3/uL) 0.50 05/06 005bsolute Eos (auto) (0.1 - 0.7 x10E3/uL) 0.04 L 05/06 005bsolute Basos (auto) (0.0 - 0.1 x10E3/uL) 0.03 05/06 005Nucleated RBC % (auto) (0 %) 0 05/06 005erologyCOVID-19 ([facility]) (NEGATIVE) NEGATIVE 05/06 41ToxicologySalicylates (0.0 - 20.0 mg/dL) < 1.7 05/06 51Opiates Screen (NEGATIVE) NEG 05/06 0041Methadone Screen (NEGATIVE) NEG 05/06 004cetaminophen (0 - 30 ug/mL) < 2.0 05/06arbiturate Screen (NEGATIVE) NEG 05/06 0041Phencyclidine Screen (NEGATIVE) NEG 05/06 0041Amphetamines Screen (NEGATIVE) NEG 05/06 004enzodiazepines (NEGATIVE) POS H 05/06 0041Cocaine Screen (NEGATIVE) NEG 05/06 0041Cannabinoids (NEGATIVE) NEG 05/06 004thyl Alcohol (NONE DETECTED g/dL) 05/06 51UrinesUrine Color Y ellow 05/06 41Urine Appearance Turbid 05/06 41Urine pH (5.0 - 8.0) 8.0 05/06 41Ur Specific [place] (1.010 - 1.025) 1.022 05/06 41Urine Protein (Negative) Trace 05/06 41Urine Ketones (NEGATIVE) Negative 05/06 Blood (NEGATIVE) Negative 05/06 41Urine Nitrite (Negative) Negative 05/06 Bilirubin Confirm (NEGATIVE) Negative 05/06 41Urine Urobilinogen (0.2 - 1.0 mg/dL) 1.0 05/06 Leukocytes (Negative) Negative 05/06 41Urine Glucose (NEGATIVE) Negative 05/06 41Urine HCG, Qual (Negative) Negative 05/06dditional NotesPlan:Patient will be placed on a level 3 observation for continued monitoring forsafety as she recently said she has no thoughts of wanting to harm herself andwas able to state she felt safe. [facility] next [...] medicationuse and the medications efficacy. Madelin, the wastewater treatment plant instructor will be incontact with [facility] and [facility] team Assessment/PlanDiagnosis1. Major depressive disorderStatus [...] renner(s) Supporting Document(s) ID Date Data Source [id number] 05/06/2021 01:31:00 AM EDT [facility] [place] Name Value Range Interpretation Code Description Data Stephanie rce(s) Supporting Document(s) ACETAMINOPHEN < 2.0 ug/mL 0-30 [facility] Data Source [id number] 05/06/2021 01:31:00 AM EDT [facility] Name Value Range Interpretation Code Description Data Stephanie rce(s) Supporting Document(s) SALICYLATE < 1.7 mg/dL 0.0-20.0 [facility] ID Date Data Source [id number] 05/06/2021 01:31:00 AM EDT [facility] Name Value Range Interpretation Code Description Data Stephanie rce(s) Supporting Document(s) ETOH NONE DETECTED [facility] NONE DETECTED ID Date Data Source [id number] 05/06/2021 01:31:00 AM EDT [facility] Name Value Range Interpretation Code Description Data Stephanie rce(s) Supporting Document(s) GLU 99 mg/dL 70-110 [facility] Patients taking Sulfasalazine may have f alsely depressedGlucose levels. Patients taking Sulfapyridine may havefalsely elevated Glucose levels. Patients should be drawnfor Glucose before the initial administration of eitherdrug. BUN 13 mg/dL 7-23 [facility] CRE 0.661 mg/dL 0.500-1.300 [facility] GFR > 60 mL/min [facility] CHLORIDE 109 mmol/L 99-110 [facility] NA 139 mmol/L 136-147 [facility] POTASSIUM 3.9 mmol/L 3.5-5.1 [facility] TCO2 25 mmol/L 20-33 [facility] ANION GAP 8.9 10.0-20.0 L [facility] CA 9.3 mg/dL 8.3-10.7 [facility] ALKALINE PHOS 110 U/L 45-117 [facility] TP 8.0 g/dL 6.0-7.8 H [facility] ALB 4.0 g/dL 3.5-5.0 [facility] ESRD Dialysis patient Albumin reference range: 2.9-4.4 g/dL GL 4.0 g/dL 2.3-3.5 H [facility] A/G 1.0 1.0-2.5 [facility] T. BILIRUBIN 0.4 mg/dL 0.1-1.1 [facility] [employer] Total Bilirubin is n ot recommended forpatients undergoing treatment with eltrombopag (Promacta)due to the potential for falsely elevated results. ALTI 58 U/L 6-54 H [facility] Patients taking Sulfasalazine and/or Sul fapyridine may havefalsely depressed ALT levels. Patients should be drawn forALT before the initial administration of either drug. AST 32 U/L 6-38 N [facility] Patients taking Sulfasalazine and/or Sul fapyridine may havefalsely depressed AST levels. Patients should be drawn forAST before the initial administration of either drug. ID Date Data Source [id number] 05/06/2021 01:10:00 AM EDT [facility] [place] Name Value Range Interpretation Code Description Data Stephanie rce(s) Supporting Document(s) WBC 8.31 x10E3/uL 4.0-10.5 [facility] RBC 4.31 x10E6/uL 4.20-5.40 [facility] Hemoglobin 12.7 g/dL 12.0-16.0 [facility] Hematocrit 38.3 % 37.0-47.0 [facility] MCV 88.9 fL 81.0-99.0 [facility] MCH 29.5 pg 27.0-31.0 [facility] MCHC 33.2 g/dL 32.7-35.6 [facility] RDW 12.5 % 11.5-14.0 [facility] Platelet count 274 x10E3/uL 150-450 [facility] ital MPV 9.8 fl 6.9-9.5 H [facility] Neutrophils 69.5 % 34-64 H [facility] Lymphocytes 23.2 % 25-45 L [facility] Monocytes 6.0 % 1.7-10.6 [facility] Eosinophils 0.5 % 0.4-7.0 [facility] Basophils 0.4 % 0.1-2.0 [facility] Imm. Gran. 0.4 % 0.1-2.0 [facility] Abs. Neutro. 5.78 x10E3/uL 1.2-7.6 N [facility] [place] Abs. Lymph. 1.93 x10E3/uL 1.0-3.5 N [facility] Abs. Levy. 0.50 x10E3/uL 0.1-1.0 [facility] Abs. Eosin. 0.04 x10E3/uL 0.1-0.7 [facility] Abs. Baso. 0.03 x10E3/uL 0.0-0.1 [facility] Abs. Imm. Gran. 0.03 x10E3/uL 0.0-0.1 N [facility] ANRBC% 0 % 0 [facility] ID Date Data Source [id number] 05/06/2021 12:41:00 AM EDT [facility] Name Value Range Interpretation Code Description Data Stephanie rce(s) Supporting Document(s) LCOVID-19, [facility] NEGATIVE [facility] This lab was ordered by [facility] and reported by [facility]. ID Date Data Source [id number] 05/06/2021 01:27:00 AM EDT [facility] Name Value Range Interpretation Code Description Data Stephanie rce(s) Supporting Document(s) PCP VISTA NEG NEGATIVE [facility] MINIMUM LEVEL OF DETECTION IS 25 ng/ml BENZODIAZEPINES POS NEGATIVE [facility] POSITIVE RESULTS UNCONFIRMEDMINIMUM LEVE L OF DETECTION IS 200 ng/ml COCAINE VISTA NEG NEGATIVE [facility] MINIMUM LEVEL OF DETECTION IS 300 ng/ml AMPHETAMINES NEG NEGATIVE [facility] MINIMUM LEVEL OF DETECTION IS 1000 ng/ml BARBITURATES NEG NEGATIVE [facility] CUTOFF CONCENTRATION IS 200 ng/ml CANNABINOIDS NEG NEGATIVE [facility] CUTOFF CONCENTRATION IS 50 ng/ml METHADONE [facility]IST[facility] MINIMUM LEVEL OF DETECTION IS 300 ng/ml OPIATE VISTA NEG NEGATIVE [facility] MINIMUM DETECTION LEVEL IS 300 ng/ml ID Date Data Source [id number] 05/06/2021 01:25:00 AM EDT [facility] [place] Name Value Range Interpretation Code Description Data Stephanie rce(s) Supporting Document(s) COVID-19, CORDELL NEGATIVE NEGATIVE [facility] Methodology: Isothermal Nucleic Acid Amp lification for [...] Emergency Use Authorization. ID Date Data Source [id number] 05/06/2021 01:11:00 AM EDT [facility] Name Value Range Interpretation Code Description Data Stephanie rce(s) Supporting Document(s) HCG QUAL URINE Negative Negative [facility] ID Date Data Source [id number] 05/06/2021 01:11:00 AM EDT [facility] Name Value Range Interpretation Code Description Data Stephanie rce(s) Supporting Document(s) URINE COLOR Yellow [facility] UAPR Turbid [facility] UGLU Negative NEGATIVE [facility] URINE BILIRUBIN [facility] Negative NEGAT[facility] USG 1.022 1.010-1.025 [facility] UBLO Negative NEGATIVE [facility] UpH 8.0 5.0-8.0 [facility] UPRO Trace Negative [facility] UUB 1.0 mg/dL 0.2-1.0 [facility] UNIT Negative Negative [facility] ULEU Negative Negative [facility] ID Date Data Source [id number] 05/06/2021 04:51:00 PM EDT [facility] [place] Physician DocumentationClLeticia Hinkle edical CenterName: Yareli DuvallAge: 20 yrsSex: FemaleDOB: 2000MRN: [id number] Date: 05/06/2021Time: 00:32Account#: [id number] 5BPrivate MD:ED Physician Richie العليposition Summary:05/06/21 13:58Hospitalization OrderedHospitalization Status: Inpatient AdmissionseProvider: Anitra [...] 400 mg intramuscular suspension,extended release syringe 400 wjvarwx13 days2. ibuprofen 400 mg Oral tablet 1 [...] thoughts of suicide. Megestrol drinking shampooisattempt for iahoeat88:44 Unable to obtain exam due to patient being uncooperative.Vital Signs:00:37 BP 137 / 84; Pulse 84; Resp 16; Temp 97.7; Pulse Ox 99% ; Weight 104.33kg; Height 5 tp2ft. 6 in. ; Pain 0/10;16:31 BP 122 / 83 (auto/); Pulse 77 MON; Resp 18; Pulse Ox 96% ;ef100:37 Body Mass Index 37.12 (104.33 kg, 167.64 cm)tp200:37 Pain Scale: Flimcbx2PYX:00:47 Patient medically screened.br06:44 Data reviewed: vital signs, nurses notes, EMS record, old medicalrecords, lab test brresult(s).11:37 ED course: Patient has refused to comply with staff, is verbally abusiveand sedisruptive, and is being physically restrained at this time. She has glqrljdy37 mg ofIM Geodon and will get 2 mg of IM Ativan..04/2600:38 Order name: Acetaminophen Level; Complete Time: 10:88mv809/2610:32 Interpretation: Within normal limits.se04/2600:38 Order name: CBC with diff; Complete Time: 10:47pt7540:32 Interpretation: Within normal limits.se04/2600:38 Order name: CMP; Complete Time: 10:88ro491/0:33 Interpretation: Normal except: TP 8.0; ALTI 58.se0:38 Order name: COVID-19 PROFILE+LAB; Complete Time: 10:32fg7170:33 Interpretation: Within normal limits.se04/2600:38 Order name: ETOH; Complete Time: 10:94ut641/2610:33 Interpretation: Within normal limits.se0:38 Order name: Khtzsiuqg748/2600:38 Order name: Salicylate Level; Complete Time: 10:92bz435/2610:33 Interpretation: Within normal limits.se0:38 Order name: Triage - Drug Screen; Complete Time: 10:50sm980/2610:33 Interpretation: Normal except: BENZODIAZEPINES POS.se0:38 Order name: UA; Complete Time: 10:45rz206/0:33 Interpretation: Within normal limits.se10/2600:38 Order name: Urine HCG Qualitative; Complete Time: 10:84yv641/2610:33 Interpretation: Within normal limits.se0:38 Order name: Diet - Mental Health Tray (call dietary); Complete Time:00:42 tp0:38 Order name: Belongings List; Complete Time: 13:37kh461/2600:38 Order name: Document Weight and Height for BMI; Complete Time: 00:19mn484:38 Order name: Mental Health Evaluation; Complete Time: 13:34vv539:38 Order name: Mental Health Level 3; Complete Time: 13:79uf075:38 Order name: VS q shift; Complete Time: 00:63bh8Qwdgklxup Medications:09:23 Drug: Ondansetron 8 mg Route: PO;jl11:41 Fol low up: Response: Nausea is hrpxunskqyc557:29 Drug: Geodon 20 mg Route: IM; Site: left deltoid;ef113:48 Follow up: Response: Anxiety ltcviqydgfj196:38 Drug: LORazepam 2 mg Route: IM; Site: right vastus lateralis;ef113:48 Follow up: Response: Anxiety vxwqfavakcc6Pcuiuutgbb:Dispatcher [employer] Kylie Fishman MD MD seHilborne, Erica, RN RN dn8IeBvisiBertha Collier RN RN jlPutney, Taylor, RN RN ki1AubppvbZeeshan browne MD MD br Name Value Range Interpretation Code Description Data Stephanie rce(s) Supporting Document(s) ID Date Data Source [id number] 05/06/2021 04:51:00 PM EDT [facility] [place] Nurse's NotesClaxton-Cristina Medical Tootie terName: Yareli DuvallAge: 20 yrsSex: FemaleDOB: 2000MRN: [id number] Date: 05/06/2021Time: 00:32Account#: [id number] 5BPrivate SMITH:Diagnosis: Major depressive disorder, recurrent, unspecified;Borderlinepersonality disorderPresentation:04/2600:34 Presenting complaint: Patient states: discharged from mental health floor05/05/21. fb1Eyvpq a bottle of shampoo. Went to [facility], police brought pthere. Ptstates she was not comfortable w/ her [...] of amount of people live, such as care home, familycare,fci, etc? no. Have you traveled to a location with widespread or ongoingCOVID-19community spread or outside of [facility]? no Have you traveled internationallyor hadcontact with someone that has traveled and has been ill in the past 3 weeks? noHaveyou received the COVID vaccine? No. Communicable Disease Screen: Negative forfever>/=100 degrees Fahrenheit. Communicable disease screen is negative. CommunicationSpeaksEnglish? Yes, is preferred language.00:34 Acuity: Triage 5nc535:34 Acuity Assignment: Triage 9bc901:34 Method Of Arrival: Dafgcgms3Zknfdg Assessment:00:36 General: Appears in no apparent distress, Behavior is appropri ate forage,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 changed:Old:Aripiprazole (Abilify Maintena) 400 MG SUSER.DEV688 MILLIGRAM Intramuscularly F32RCqh = 1New:Aripiprazole (Abilify Maintena) 400 MG SUSER.IWC335 MILLIGRAM Intramuscularly H67MSyu = 1Instructions:last im inj received 04/30/21Discharge Activity: As toleratedDischarge diet: RegularFollow- upFollow up with your Primary care physicianFollow-up with therapist and psychiatrist as recommendedAlso recommended outpatient chemical dependencyReferralsOrdered ReferralsSELECT [facility] [place] [address] Video appointment through [facility] (#[phone]) onTMay 01 at 4:00 pm withAustin.[facility] [place] [address] Video appointment through [facility] (#[phone]) May 27 at 9:30 [address] Giles.DATE SIGNED: 05/01/21 Electronically SignedTIME SIGNED: 150 BOGDAN ALMAGUER MD Name Value Range Interpretation Code Description Data Stephanie rce(s) Supporting Document(s) ID Date Data Source [id number] 05/01/2021 02:17:00 PM EDT [address] PSYCHIATRIC ASSESSMENTPATIENT NAME: YARELI HATCH MR#: [id number] PHYSICIAN: BROOKLYN ONEILL MDAUTHOR: Surendra SMITH,P. 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 Patient reported that shewas discharged from [facility] on 04/30[facility]21 and found out that her cousin hadpassed away from an overdose. Patient reported she brought herself [facility] for suicidal ideations. She [facility]. She also stated she was [...] 04/30/2021. Patient spent most of her childhood [facility]. She has a history of suicide attemptsthrough [...] her GED. Patient has never worked in [employer]. Patient currently lives at [facility] living facility and is on an AOT.Patient [...] rce(s) Supporting Document(s) ID Date Data Source [id number] 05/01/2021 06:20:00 PM EDT [facility] Physician DocumentationClaxton-Cristina M edical CenterName: Yareli DuvallAge: 20 yrsSex: FemaleDOB: 2000MRN: [id number] Date: 05/01/2021Time: 10:40Account#: [id number] [id number] MD: NONE, - Per PatientED Physician Misti العليisposition Summary:05/01/21 16:49Hospitalization OrderedHospitalization Status: Inpatient AdmissionseProvider: Raffi OneillMyrnaocation: Mental [...] suicidal ideation. Justrecentlydischarged and evidently went into [facility] with a chief complaint ofsuicidalideation. She evidently [...] 400 mg intramuscular suspension,extended release syringe 400 rdjwizz66 days8. sertraline 50 mg oral tablet 1 [...] Temp 96.7(T); Pulse Ox 98% on R/A; Sbbhjm301.33 kg; klpHeight 5 ft. 6 in. ; Pain 0/10;18:19 BP 145 / 91; Pulse 96; Resp 17; Temp 97.3; Pulse Ox 96% ; Pain 0/10;wd110:42 Body Mass Index 37.12 (104.33 kg, 167.64 cm)klp10:42 Pain Scale: Ukpggehi06:19 Pain Scale: Goabcmn7RFC:11:28 Patient medically screened.se15:35 Data reviewed: vital signs, nurses notes, diagnostic data from outsidefacility, old semedical records. ED course: Outside studies were reviewed. The case wasdiscussed withJAN Buckley as well as Dr. Patten..04/2110:48 Order name: VS q shift; Complete Time: 16:91osv97/2110:48 Order name: Observation Level 3; Complete Time: 12:40mte91/2111:28 Order name: Medically Cleared for Eval by- Psychosocial, Sub Prior (YE);Complete Time: se17::40 Order name: Observation Level 4; Complete Time: 12:40klpDispensed Medications:No medications were administeredSignatures:Елена Hugo RN RN klpElliott, Suzanne, MD MD seCorrections: (The following items were deleted from the chart)11:01 10:59 Home Meds: inderal 10 mg twice a day; ykhazo97:58 11:30 Musculoskeletal/extremity: AT, PITT. sese Name Value Range Interpretation Code Description Data Stephanie rce(s) Supporting Document(s) ID Date Data Source [id number] 05/01/2021 06:20:00 PM EDT [facility] terName: Yareli DuvallAge: 20 yrsSex: FemaleDOB: 2000MRN: [id number] Date: 05/01/2021Time: 10:40Account#: [id number] MD: NONE, - Per PatientDiagnosis: Major depressive disorder, recurrent, unspecifiedPresentation:04/2110:40 Presenting complaint: EMS states: transferred from [facility] for psycheval suicidal klpideations. International Travel Fever No. Coronavirus Screening: Have you beendiagnosed with COVID-19 in the past 30 days? no Are you currently on quarantinebyPublic Health? no Flu-like symptoms reported in the last 14 days: no. Have youhadclose contact with confirmed or suspected COVID-19 case? no Do you live in asettingwhere a large of amount of people live, such as care home, family care,fci, etc?no. Have you traveled to a location with widespread or ongoing COVID-19communityspread or outside of [facility]? no Have you traveled internationally or hadcontact withsomeone that has traveled and has been ill in the past 3 weeks? no Have youreceivedthe COVID vaccine? Yes. Communicable Disease Screen: Negative for fever>/= 100degreesFahrenheit. Communicable disease screen is negative. (-) rash or unusual skinlesion.Communication Speaks Indian? Yes, is preferred language.10:40 Acuity: Triage 2klp10:40 Method Of Arrival: Ambulance: [place] Fuazwadcr56:41 Acuity Assignment: Triage 2klpTriage Assessment:10:42 General: Appears [...] 400 mg intramuscular suspension,extended release syringe 400 ijpjkaj24 days8. sertraline 50 mg oral tablet 1 tab daily- PMHx: ADHD; ANXIETY; BIPOLAR DISORDER; Depressive disorder; ptsd;- Immunization history: Flu vaccine is not up to date.- Social history: Smoking status: Vaping ETOH status Denies use of ETOH.- Advance Directives:: None.Screenin:52 Abuse screen: Denies threats or abuse. Nutritional screening: No deficitsnoted. [facility]: patient was previously offered screening. [...] around her neck. upset afterspeaking to father klThreatMetrix phone. sheet removed and pt placed on 1:1.15:37 Reassessment: Patient appears in no apparent distress at this time.kg1Ovjtoifkiopm:11:03 SAFE Act Report Not Completed. Intervention: Observation Level 3. Mentalhealth consult am11is initiated at 11:03. Referral Information: Evaluation referral is [facility]. The patient was referred for evaluation because suicidalideationswith a plan to strange self or overdose.11:25 Subjective: The patients chief complaint is suicidal ideations. Ptpresents to the ED am11as a transfer from [facility] for suicidal ideations. Pt reports [facility] and found out that her cousin had passedaway froman overdose. Pt reports she brought herself to [facility] for suicidalideations. Pt states she eloped [...] being yesterday. [facility] Pt reports she is currently suicidal with a plan tooverdose orstrangle herself. Pt denies drug or alcohol use. Pt reports pending harassmentanddisorderly conduct charges. Pt denies access to guns. . Delusions are denied,Hallucinations are denied. Patient's mood is depressed, Having thoughts ofsuicide.Plan for suicide is strangle self or overdose.11:37 Patient reports history of anxiety, Bipolar Disorder, Depression, panicattacks, xn06unrb-odkdrdqdi stress disorder, self -mutilation, sleep disturbance, suicideattempt:overdose in February 2020 Mental Health Admissions: multiple last discharged DEHKFGM64/20/21 Current Outpatient Mental Health Services: Therapist / Agency: [facility]. Living Environment: Family / Home Support:poor Thepatient currently lives in a [facility].11:57 Patient presents to Emergency Department with the following symptomswithin the past 2 nd25fkqtp: anxiety, depressed mood.12:11 Patient presents to Emergency Department with the following symptomswithin the past 2 ox57xbgvs: excessive guilt, feelings of helplessness/hopelessness, poor impulsecontrol,self-mutilation, sleep disturbance - insomnia, suicidal ideation with plan forpills,strangling se lf.12:12 Objective: Patient is cooperative, Speech is normal. Affect is Tearful.Mental status me04ozuv: Patients appearance is appropriate, Patient's behavior is [...] patient's status at 13:12, ED MDnotified of pm49vdnqfaiw status at 13:12. Disposition: Medically cleared for disposition by Rajiv.Psychiatric Consult is performed by phone with Dr Beckham The [facility]admittedto [facility] but pt would prefer to be inpatient at a different facility at thistime. LegalStatus: Patient's legal status will be [facility] Services: 37.DSM-V DXAxis I diagnosis: Bipolar D/O, depressed [place] II diagnosis: Deferred [place] IIIdiagnosis: None. [place] IV diagnosis: poor impulse control. 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 [place] SuicideSeverityRating Scale: Suicidal Ideation Rating 5; Intensity [...] Temp 96.7(T); Pulse Ox 98% on R/A; Iqpbwa830.33 kg; klpHeight 5 ft. 6 in. ; Pain 0/10;18:19 BP 145 / 91; Pulse 96; Resp 17; Temp 97.3; Pulse Ox 96% ; Pain 0/10;wd110:42 Body Mass Index 37.12 (104.33 kg, 167.64 cm)klp10:42 Pain Scale: Tzooroni94:19 Pain Scale: Tdafftz4EW Course:10:40 Patient arrived in ED.klp10:40 NONE, - [...] to Hospitalize by Provider.se17:13 Disposition: Admitted to Cvxcdeg751:13 Condition: stable, Provider notified of abnormal vital signs.17:13 Discharge instructions given to patient, Instructed on need for admit.17:13 Discharge Assessment: Patient verbalized understanding of dispositioninstructions.Patient has no functional deficits.18:20 Patient left the ED.mj1Qynyowmigu:Елена Hugo, RN Kylie Sands MD MD seDow, Wendy RN RN en8FnfdhlyfAmi Medrano RN JOSE LUIS jeromekn9KjesIna Jack pw95Eqeydyhoska: (The following items were deleted from the chart)11:01 10:59 Home Meds: inderal 10 mg twice a day; dafhnr45:12 11:57 Patient presents to Emergency Department with the followingsymptoms within the sy13qsrp 2 weeks: anxiety, depressed mood, am11 Name Value Range Interpretation Code Description Data Stephanie rce(s) Supporting Document(s) ID Date Data Source [id number] 05/01/2021 02:32:00 AM EDT [facility] Name Value Range Interpretation Code Description Data Stephanie rce(s) Supporting Document(s) UDS Benzodiazepines Screen Negative Normal (applies to n on-numeric results) [facility] UDS Cocaine Screen Negative Normal (applies to non-numer ic results) [facility] UDS Ampetamine Screen Negative Normal (applies to non-nu meric results) [facility] UDS Cannabinoids Screen Negative Normal (applies to non- numeric results) [facility] UDS Opiates Screen Negative Normal (applies to non-numer ic results) [facility] UDS Barbiturates Screen Negative Normal (applies to non- numeric results) [facility] Threshold Levels Benzodiazepine 200 ng/mL Cocaine 300 ng/mL Amphetamines 1000 ng/mL Cannabinoids (THC) 50 ng/mL Opiates 300 ng/mL Barbiturates 200 ng/mL All positive findings are presumptive and unconfirmed. Confirmation of positive results are performed only at request of provider. Unconfirmed results must not be used for non-medical purposes (i.e. preemployment and legal purposes) ID Date Data Source [id number] 05/01/2021 02:40:00 AM EDT [facility] Name Value Range Interpretation Code Description Data Stephanie rce(s) Supporting Document(s) Salicylate 2.8-20.0 Below low normal [facility] ID Date Data Source [id number] 05/01/2021 02:40:00 AM EDT [facility] Name Value Range Interpretation Code Description Data Stephanie rce(s) Supporting Document(s) Acetaminophen 10.0-30.0 Below low normal [facility] ID Date Data Source [id number] 05/01/2021 02:40:00 AM EDT [facility] Name Value Range Interpretation Code Description Data Stephanie rce(s) Supporting Document(s) Ethanol Less than 10.0 Normal (applies to non-numeric r esults) [facility] ID Date Data Source [id number] 05/01/2021 12:44:00 AM EDT [facility] Name Value Range Interpretation Code Description Data Stephanie rce(s) Supporting Document(s) UDS Benzodiazepines Screen Negative Normal (applies to n on-numeric results) [facility] UDS Cocaine Screen Negative Normal (applies to non-numer ic results) [facility] UDS Ampetamine Screen Negative Normal (applies to non-nu meric results) [facility] UDS Cannabinoids Screen Negative Normal (applies to non- numeric results) [facility] UDS Opiates Screen Negative Normal (applies to non-numer ic results) [facility] UDS Barbiturates Screen Negative Normal (applies to non- numeric results) [facility] Threshold Levels Benzodiazepine 200 ng/mL Cocaine 300 ng/mL Amphetamines 1000 ng/mL Cannabinoids (THC) 50 ng/mL Opiates 300 ng/mL Barbiturates 200 ng/mL All positive findings are presumptive and unconfirmed. Confirmation of positive results are performed only at request of provider. Unconfirmed results must not be used for non-medical purposes (i.e. preemployment and legal purposes) ID Date Data Source [id number] 05/01/2021 12:54:00 AM T [facility] Name Value Range Interpretation Code Description Data Stephanie rce(s) Supporting Document(s) Ethanol Less than 10.0 Normal (applies to non-numeric r esults) [facility] ID Date Data Source [id number] 05/01/2021 12:56:00 AM [facility] Name Value Range Interpretation Code Description Data Stephanie rce(s) Supporting Document(s) Salicylate 2.8-20.0 Below low normal [facility] ID Date Data Source [id number] 05/01/2021 12:56:00 AM [facility] Name Value Range Interpretation Code Description Data Stephanie rce(s) Supporting Document(s) Acetaminophen 10.0-30.0 Below low normal [facility] ID Date Data Source [id number] [facility]21 [facility]:38[facility] Value Range Interpretation Code Description Data Stephanie rce(s) Supporting Document(s) UDS Benzodiazepines Screen Negative Normal (applies to n on-numeric results) [facility] UDS Cocaine Screen Negative Normal (applies to non-numer ic results) [facility] UDS Ampetamine Screen Negative Normal (applies to non-nu meric results) [facility] UDS Cannabinoids Screen Negative Normal (applies to non- numeric results) [facility] UDS Opiates Screen Negative Normal (applies to non-numer ic results) [facility] UDS Barbiturates Screen Negative Normal (applies to non- numeric results) [facility] [facility] Threshold Levels Benzodiazepine 200 ng/mL Cocaine 300 ng/mL Amphetamines 1000 ng/mL Cannabinoids (THC) 50 ng/mL Opiates 300 ng/mL Barbiturates 200 ng/mL All positive findings are presumptive and unconfirmed. Confirmation of positive results are performed only at request of provider. Unconfirmed results must not be used for non-medical purposes (i.e. preemployment and legal purposes) ID Date Data Source [id number] 04/30/2021 09:22:00 PM EDT [facility] Collected By: Nurse Initials: LAKIA Time Collected: 2039 Name Value Range Interpretation Code Description Data Stephanie rce(s) Supporting Document(s) Color,Urine Colorl-Dk Y Normal (applies to non-numeric res ults) [facility] Clarity,Urine Clear Normal (applies to non-numeric re sults) [facility] Specific [place],Urine 1.005-1.030 Normal (applies to non- numeric results) [facility] pH,Urine 5.0-8.0 Normal (applies to non-numeric resul ts) [facility] Protein,Urine Negative Normal (applies to non-numeric re sults) [facility] Glucose,Urine Negative Normal (applies to non-numeric re sults) [facility] Ketones,Urine Negative Normal (applies to non-numeric re sults) [facility] Blood,Urine Negative Normal (applies to non-numeric resu lts) [facility] Bilirubin,Urine Negative Normal (applies to non-numeric results) [facility] Urobilinogen,Urine 0.2-1.0 Normal (applies to non-numer ic results) [facility] Leukocyte Esterase,Urine Negative Normal (applies to non -numeric results) [facility] Nitrite,Urine Negative Normal (applies to non-numeric re sults) [facility] ID Date Data Source [id number] 04/30/2021 09:16:00 PM EDT [facility] Name Value Range Interpretation Code Description Data Stephanie rce(s) Supporting Document(s) Sodium 138 mmol/L 136-145 Normal (applies to non-numeric resul ts) [facility] Potassium 3.5-5.1 Normal (applies to non-numeric resul ts) [facility] Chloride 101 mmol/L 98-107 Normal (applies to non-numeric resul ts) [facility] Carbon Dioxide CO2 21-32 Normal (applies to non-numer ic results) [facility] Anion Gap 5.0-16.0 Normal (applies to non-numeric resul ts) [facility] BUN 18 mg/dL 7-18 Normal (applies to non-numeric results) [facility] Creatinine,Serum 0.7-1.2 Below low normal [facility] GFR >60 Normal (applies to non-numeric results) [facility] Glucose Level 93 mg/dL 60-99 Normal (applies to non-numeric re sults) [facility] Reference range is only applicable when patient is fasting Note the following drug interference: Sulfasalazine Sulfapyridine Can see falsely depressed Can see falsely elevated result with up to 17% results with up to 11% decrease in measurement increase in measurement Recommend patients be collected for this test prior to administration of either drug. Calcium 8.5-10.1 Normal (applies to non-numeric resul ts) [facility] Bilirubin,Total 0.1-1.9 Normal (applies to non-numeric results) [facility] SGOT(AST) 33 U/L 15-37 Normal (applies to non-numeric resul ts) [facility] Note the following drug interference: Sulfasalazine Sulfapyridine Can see falsely depressed Can see falsely elevated result with up to 10% results with up to 10% decrease in measurement increase in measurement Recommend patients be collected for this test prior to administration of either drug. SGPT(ALT) 61 U/L 12-78 Normal (applies to non-numeric resul ts) [facility] Note the following drug interference: Sulfasalazine Sulfapyridine Can see falsely depressed Can see falsely elevated result with up to 29% results with up to 10% decrease in measurement increase in measurement Recommend patients be collected for this test prior to administration of either drug. Alkaline Phosphatase 121 U/L 38-126 Normal (applies to non-num deena results) [facility] can increase Alkaline Phosp le vels up to 2 times the normal adult value. Normal values for children and adolescents are 2 to 3 times the normal adult value. Total Protein 6.0-8.2 Normal (applies to non-numeric re sults) [facility] Albumin Level 3.4-5.0 Normal (applies to non-numeric re sults) [facility] ID Date Data Source [id number] 04/30/2021 09:16:00 PM [facility] Value Range Interpretation Code Description Data Stephanie rce(s) Supporting Document(s) Acetaminophen 10.0-30.0 Below low normal [facility] ID Date Data Source [id number] 04/30/2021 09:16:00 PM [facility] Name Value Range Interpretation Code Description Data Stephanie rce(s) Supporting Document(s) Salicylate 2.8-20.0 Below low normal [facility] ID Date Data Source [id number] 04/30/2021 09:16:00 PM [facility] Value Range Interpretation Code Description Data Stephanie rce(s) Supporting Document(s) Troponin I 0.000-0.056 Normal (applies to non-numeric resu lts) [facility] ID Date Data Source [id number] 04/30/2021 09:16:00 PM [facility] Name Value Range Interpretation Code Description Data Stephanie rce(s) Supporting Document(s) Magnesium 1.8-2.4 Normal (applies to non-numeric resul ts) [facility] ID Date Data Source [id number] 04/30/2021 09:07:00 PM [facility] Name Value Range Interpretation Code Description Data Stephanie rce(s) Supporting Document(s) Ethanol Less than 10.0 Normal (applies to non-numeric r esults) [facility] ID Date Data Source [id number] 04/30/2021 09:06:[address] [facility] Name Value Range Interpretation Code Description Data Stephanie rce(s) Supporting Document(s) Beta HCG,Screen Negative Normal (applies to non-numeric results) [facility] ID Date Data Source [id number] 04/30/2021 08:40:00 PM EDT [facility] Name Value Range Interpretation Code Description Data Stephanie rce(s) Supporting Document(s) White Blood Count 3.5-10.5 Normal (applies to non-numeri c results) [facility] Red Blood Count 3.90-5.00 Normal (applies to non-numeric results) [facility] Hemoglobin 12.0-15.5 Normal (applies to non-numeric resul ts) [facility] Hematocrit 34.9-44.5 Normal (applies to non-numeric resul ts) [facility] Mean Corpuscular Volume 81.2-95.1 Normal (applies to non- numeric results) [facility] Mean Corpuscular Hgb 25.6-32.2 Normal (applies to non-num deena results) [facility] Mean Corpuscular Hgb Conc 32.0-36.0 Normal (applies to no n-numeric results) [facility] Red Cell Distribution Width 11.9-15.5 Normal (appli es to non-numeric results) [facility] Platelet Count 282 x10 3/uL 150-450 Normal (applies to non-numeric results) [facility] Mean Platelet Volume 9.4-12.4 Normal (applies to non-num deena results) [facility] Neutrophils% (Auto) 31.0-71.0 Normal (applies to non-nume frank results) [facility] Lymphocytes% (Auto) 20.0-55.0 Normal (applies to non-nume frank results) [facility] Monocytes% (Auto) 4.0-12.0 Normal (applies to non-numeri c results) [facility] Eosinophils% (Auto) 1.0-8.0 Normal (applies to non-nume frank results) [facility] Basophils% (Auto) 0.0-2.0 Normal (applies to non-numeri c results) [facility] Immature Granulocytes% (Auto) 0.0-2.0 Normal (alexander lies to non-numeric results) [facility] Neutrophils# (Auto) 1.50-6.20 Above high normal [facility] Lymphocytes# (Auto) 1.20-4.00 Normal (applies to non-nume frank results) [facility] Monocytes# (Auto) 0.00-0.90 Normal (applies to non-numeri c results) [facility] Eosinophils# (Auto) 0.00-0.50 Normal (applies to non-nume frank results) [facility] Basophils# (Auto) 0.00-0.20 Normal (applies to non-numeri c results) [facility] Immature Granulocytes# (Auto) 0.00-7.00 No rmal (applies to non-numeric results) [facility] ID Date Data Source [id number] 04/30/2021 08:25:00 PM EDT [facility] Name Value Range Interpretation Code Description Data Stephanie rce(s) Supporting Document(s) Respiratory specimen severe acute respir atory syndrome coronavirus 2 (SARS-CoV-2) RNA Negative (qualifier value) [facility] This lab was ordered by [facility] [place] and reported by . ID Date Data Source [id number] 04/30/2021 08:58:00 PM EDT [facility] First test? UNKNOWNEmployed in healthca re? UNKNOWNSymptomatic per CDC? UNKNOWNHospitalized? UNKNOWNICU? UNKNOWNResident in congregated care? ex care home, [facility] UNKNOWN? UNKNOWN Name Value Range Interpretation Code Description Data Stephanie rce(s) Supporting Document(s) SARS-CoV-2 RNA Negative Normal (applies to non-numeric r esults) [facility] Negative results should be treated as [...] Certificate of Accreditation. Factsheets for healthcare providers: https://www.fda.gov/media/064356/download Factsheets for patients: https://www.fda.gov/media/316593/download The ID NOW Instrument is a rapid molecular in vitro diagnostic test utilizing an isothermal nucleic acid amplification technology intended for the qualitative detection of nucleic acid from the SARS-CoV-2 viral RNA. THIS IS A STATE REPORTABLE COMMUNICABLE DISEASE. Manual entry verified by Marion Thompson 04/30/212056 ID Date Data Source [id number] 04/30/2021 11:10:00 AM EDT [place] [id number] HEALTH PROGRESS NOTEPATIENT NAME: [facility] PH[facility]IAN: BOGDAN ALMAGUER MDAUTHOR: Lana Aquino. 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 [...] her mental health, be more open about howshmainor is feeling regarding her emotions, to stay [...] SIGNED: 04/30/21 Electronically SignedTIME SIGNED: 1116 DYLAN CABRERA Name Value Range Interpretation Code Description Data Stephanie rce(s) Supporting Document(s) ID Date Data Source [id number] 04/29/2021 03:34:00 PM EDT [address] [id number] NAME: YARELI HATCH#: [id number] PHYSICIAN: BOGDAN ALMAGUER MDACHICO #: [id number] ADM. DATE: 04/27/21PATIENT : 00 DISCH. DATE: [...] follow-upappointmentDischarge InformationDISCHARGE INFORMATION* Thank you [facility] and allowing us toserve you* Our Goal is to provide the highest quality of care.* This discharge information is to help you better understand your diagnosisand medication*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 DAILYDays = 30 Qty = 30Aripiprazole* (Abilify*) 10 MG IXPUBK07 MILLIGRAM Orally DAILYPRAZOSIN HCL (PRAZOSIN HCL) 2 MG CAPSULE2 MILLIGRAM Orally AT BEDTIMEAripiprazole (Abilify Maintena) 400 MG SUSER.LEV014 MILLIGRAM Intramuscularly J23NHry = 1Instructions:last im inj received 04/03/21Olanzapine* (Zyprexa*) 5 MG TABLET5 MILLIGRAM Orally 2100Qty = 30Discharge Activity: Resume normal activityDischarge diet: RegularAdditonal NotesDischarge summary:Major depressive disorderBorderline personality disorderObesity, morbidBipolar disorderPortions of this section were scribed by Shell Ariza on 04/26/21 at 1505DATE SIGNED: 04/26/21 Electronically SignedTIME SIGNED: 152 BROOKLYN ONEILL MD Name Value Range Interpretation Code Description Data Stephanie rce(s) Supporting Document(s) ID Date Data Source [id number] 04/26/2021 02:33:00 PM EDT [address] [id number] NAME: YARELI HATCH#: [id number] PHYSICIAN: BROOKLYN ONEILL MDACHICO #: [id number] ADM. DATE: 04/26/21PATIENT : 00 DISCH. DATE: [...] rce(s) Supporting Document(s) ID Date Data Source [id number] 04/26/2021 11:55:00 AM EDT [address] PSYCHIATRIC ASSESSMENTPATIENT NAME: YARELI HATCH MR#: [id number] PHYSICIAN: BROOKLYN ONEILL MDAUTHOR: Dylan Aquino DATE: 04/26/21 RM#: [id number]-nme morbidly obese femaleChief Complaint"I was suicidal"Reason for [...] recent of her aunt who lives in [place]. Patientstates she was currently feeling helpless and [...] to not being at her apartment at [facility] much and admits is due tohaving lack of relationships with her peers there and states that staff do nothelp or interact with her. Patient does admit to not following up with [facility] health appointment stating it was reasons related [...] her GED. Patient has never worked in [employer]. Patient currently lives at [facility] living facility [...] 04/25 2345Glucose (70 - 110 mg/dL) 89 10/ 2345Calcium (8.3 - 10.7 mg/dL) 9.5 10/15 2345Total Bilirubin (0.1 - 1.1 mg/dL) 0.3 10/ 2345AST (6 - 38 U/L) 38 / 234 5ALT (6 - 54 U/L) 64 H / 2345Alkaline Phosphatase (45 - 117 U/L) 118 H 10/ 2345Total Protein (6.0 - 7.8 g/dL) 8.7 H 10/ 2345Albumin (3.5 - 5.0 g/dL) 4.0 10/15 2345Globulin (2.3 - 3.5 g/dL) 4.7 H 10/ 2345Albumin/Globulin Ratio (1.0 - 2.5) 0.9 L 04/25 2345HematologyWBC (4.0 - 10.5 x10E3/uL) 9.84 04/25 2345RBC (4.20 - 5.40 x10E6/uL) 4.48 / 2345Hgb (12.0 - 16.0 g/dL) 13.0 / 2345Hct (37.0 - 47.0 %) 40.4 04/25 2345MCV (81.0 - 99.0 fL) 90.2 04/25 2345MCH (27.0 - 31.0 pg) 29.0 04/25 2345MCHC (32.7 - 35.6 g/dL) 32.2 L 04/25 2345RDW (11.5 - 14.0 %) 12.3 04/25 2345Plt Count (150 - 450 x10E3/uL) 291 / 2345MPV (6.9 - 9.5 fl) 10.1 H 04/25 2345Immature Gran % (Auto) (0.1 - 2.0 %) 0.4 / 2345Neut % (Auto) (34 - 64 %) 59.9 / 2345Lymph % (Auto) (25 - 45 %) 31.9 04/25 2345Mono % (Auto) (1.7 - 10.6 %) 6.6 04/255Eos % (Auto) (0.4 - 7.0 %) 1.0 04/25 234aso % (Auto) (0.1 - 2.0 %) 0.2 04/25 234bs Immat Gran (auto) (0.0 - 0.1 x10E3/uL) 0.04 04/25 234bsolute Neuts (auto) (1.2 - 7.6 x10E3/uL) 5.89 04/25 234bsolute Lymphs (auto) (1.0 - 3.5 x10E3/uL) 3.14 04/25 234bsolute Monos (auto) (0.1 - 1.0 x10E3/uL) 0.65 04/25 234bsolute Eos (auto) (0.1 - 0.7 x10E3/uL) 0.10 04/25bsolute Basos (auto) (0.0 - 0.1 x10E3/uL) 0.02 04/25 2345Nucleated RBC % (auto) (0 %) 0 04/25 2345SerologyCOVID-19 (CORDELL) (NEGATIVE) NEGATIVE 04/25 2305ToxicologySalicylates (0.0 - 20.0 mg/dL) < 1.7 04/25 2345Opiates Screen (NEGATIVE) NEG 04/26 0000Methadone Screen (NEGATIVE) NEG 04/26 0000Acetaminophen (0 - 30 ug/mL) < 2.0 04/25arbiturate Screen (NEGATIVE) NEG 04/26 0000Phencyclidine Screen (NEGATIVE) NEG 04/26 0000Amphetamines Screen (NEGATIVE) NEG 04/26 0000B enzodiazepines (NEGATIVE) NEG 04/26 0000Cocaine Screen (NEGATIVE) NEG 04/26 0000Cannabinoids (NEGATIVE) NEG 04/26 0000Ethyl Alcohol (NONE DETECTED g/dL) 04/25 2345UrinesUrine Color Yellow 04/26Urine Appearance Cloudy 04/26Urine pH (5.0 - 8.0) 6.0 04/26 0000Ur Specific [place] (1.010 - 1.025) 1.027 H 04/26 0000Urine Protein (Negative) Trace 04/26 0000Urine Ketones (NEGATIVE) Negative 10/16 0000Urine Blood (NEGATIVE) 2+ /16 0000Urine Nitrite (Negative) Negative /16 0000Ur Bilirubin Confirm (NEGATIVE) Negative 04/26 0000Urine Urobilinogen (0.2 - 1.0 mg/dL) 1.0 /16 0000Urine Leukocytes (Negative) Trace / 0000Urine RBC (NONE SEEN) 3-5 RBCs/HPF 10/16 0000Urine WBC (NONE SEEN) 3-5 WBCs/HPF /16 0000Urine Crystals (NONE SEEN) FEW AMORPHOUS /16 0000Urine Bacteria (NONE SEEN) Few 10/16 0000Urine Mucus (NONE SEEN) Few /16 0000Urine Glucose (NEGATIVE) Negative / 0000Urine HCG, Qual (Negative) Negative 04/26 0000Additional NotesPlan:Patient will be evaluated by Dr. Oneill. If patient is able to maintainsafety and exhibit safe and appropriate behavior she can be discharged back toT. If it is determined that she is [...] rce(s) Supporting Document(s) ID Date Data Source [id number] 04/26/2021 01:09:00 AM EDT [facility] Name Value Range Interpretation Code Description Data Stephanie rce(s) Supporting Document(s) PCP VISTA NEG NEGATIVE [facility] MINIMUM LEVEL OF DETECTION IS 25 ng/ml BENZODIAZEPINES [facility] LEVEL OF DETECTION IS 200 ng/ml COCAINE VISTA NEG NEGATIVE [facility] MINIMUM LEVEL OF DETECTION IS 300 ng/ml AMPHETAMINES NEG NEGATIVE [facility] MINIMUM LEVEL OF DETECTION IS 1000 ng/ml BARBITURATES NEG [facility]GATIVE [facility] CUTOFF CONCENTRATION IS 200 ng/ml CANNABINOIDS NEG NEGATIVE [facility] CUTOFF CONCENTRATION IS 50 ng/ml METHADONE VISTA NEG NEGATIVE [facility] al MINIMUM LEVEL OF DETECTION IS 300 ng/ml OPIATE VISTA NEG NEGATIVE [facility] MINIMUM DETECTION LEVEL IS 300 ng/ml ID Date Data Source [id number] 04/26/2021 12:51:00 AM EDT [facility] Name Value Range Interpretation Code Description Data Stephanie rce(s) Supporting Document(s) HCG QUAL URINE Negative Negative [facility] l ID Date Data Source [id number] 04/26/2021 12:51:00 AM EDT [facility] Name Value Range Interpretation Code Description Data Stephanie rce(s) Supporting Document(s) URINE COLOR Yellow [facility] UAPR Cloudy [facility] UGLU Negative NEGATIVE [facility] URINE BILIRUBIN Negative NEGATIVE [facility] al UKET Negative NEGATIVE [facility] USG 1.027 1.010-1.025 [facility] UBLO 2+ NEGATIVE [facility] UpH 6.0 5.0-8.0 [facility] UPRO Trace Negative [facility] UUB 1.0 mg/dL 0.2-1.0 [facility] UNIT Negative Negative [facility] ULEU Trace Negative [facility] ID Date Data Source [id number] 04/26/2021 12:51:00 AM EDT [facility] Name Value Range Interpretation Code Description Data Stephanie rce(s) Supporting Document(s) URINE RBC 3-5 RBCs/HPF NONE SEEN [facility] URINE WBC 3-5 WBCs/HPF NONE SEEN [facility] URINE BACTERIA Few NONE SEEN [facility] l URINE EPI. Moderate NONE SEEN [facility] UMUCUS Few NONE SEEN [facility] URINE CRYSTAL FEW AMORPHOUS NONE SEEN [facility] ital ID Date Data Source [id number] 04/26/2021 12:22:00 AM EDT [facility] Name Value Range Interpretation Code Description Data Stephanie rce(s) Supporting Document(s) SALICYLATE < 1.7 mg/dL 0.0-20.0 [facility] ID Date Data Source [id number] 04/26/2021 12:22:00 AM EDT [facility] Name Value Range Interpretation Code Description Data Stephanie rce(s) Supporting Document(s) ACETAMINOPHEN < 2.0 ug/mL 0-30 [facility] Data Source [id number] 04/26/2021 12:22:00 AM EDT [facility] Name Value Range Interpretation Code Description Data Stephanie rce(s) Supporting Document(s) ETOH NONE DETECTED [facility] NONE DETECTED ID Date Data Source [id number] 04/26/2021 12:22:00 AM EDT [facility] Name Value Range Interpretation Code Description Data Stephanie rce(s) Supporting Document(s) GLU 89 mg/dL 70-110 [facility] Patients taking Sulfasalazine may have f alsely depressedGlucose levels. Patients taking Sulfapyridine may havefalsely elevated Glucose levels. Patients should be drawnfor Glucose before the initial administration of eitherdrug. BUN 16 mg/dL 7-23 [facility] CRE 0.660 mg/dL 0.500-1.300 [facility] GFR > 60 mL/min [facility] CHLORIDE 107 mmol/L 99-110 [facility] NA 138 mmol/L 136-147 [facility] POTASSIUM 4.0 mmol/L 3.5-5.1 [facility] TCO2 25 mmol/L 20-33 [facility] ANION GAP 10.0 10.0-20.0 [facility] CA 9.5 mg/dL 8.3-10.7 [facility] ALKALINE PHOS 118 U/L 45-117 [facility] TP 8.7 g/dL 6.0-7.8 [facility] ALB 4.0 g/dL 3.5-5.0 [facility] ESRD Dialysis patient Albumin reference range: 2.9-4.4 g/dL GL 4.7 g/dL 2.3-3.5 [facility] A/G 0.9 1.0-2.5 [facility] T. BILIRUBIN 0.3 mg/dL 0.1-1.1 [facility] [employer] [place] Total Bilirubin is n ot recommended forpatients undergoing treatment with eltrombopag (Promacta)due to the potential for falsely elevated results. ALTI 64 U/L 6-54 [facility] Patients taking Sulfasalazine and/or Sul fapyridine may havefalsely depressed ALT levels. Patients should be drawn forALT before the initial administration of either drug. AST 38 U/L 6-38 [facility] Patients taking Sulfasalazine and/or Sul fapyridine may havefalsely depressed AST levels. Patients should be drawn forAST before the initial administration of either drug. ID Date Data Source [id number] 04/26/2021 12:07:00 AM EDT [facility] [place] Name Value Range Interpretation Code Description Data Stephanie rce(s) Supporting Document(s) WBC 9.84 x10E3/uL 4.0-10.5 [facility] RBC 4.48 x10E6/uL 4.20-5.40 [facility] Hemoglobin 13.0 g/dL 12.0-16.0 [facility] Hematocrit 40.4 % 37.0-47.0 [facility] MCV 90.2 fL 81.0-99.0 [facility] MCH 29.0 pg 27.0-31.0 [facility] MCHC 32.2 g/dL 32.7-35.6 [facility] RDW 12.3 % 11.5-14.0 [facility] Platelet count 291 x10E3/uL 150-450 [facility] ital MPV 10.1 fl 6.9-9.5 [facility] Neutrophils 59.9 % 34-64 [facility] Lymphocytes 31.9 % 25-45 [facility] Monocytes 6.6 % 1.7-10.6 [facility] Eosinophils 1.0 % 0.4-7.0 N [facility] Basophils 0.2 % 0.1-2.0 [facility] Imm. Gran. 0.4 % 0.1-2.0 [facility] Abs. Neutro. 5.89 x10E3/uL 1.2-7.6 [facility] Abs. Lymph. 3.14 x10E3/uL 1.0-3.5 [facility] Abs. Levy. 0.65 x10E3/uL 0.1-1.0 [facility] Abs. Eosin. 0.10 x10E3/uL 0.1-0.7 [facility] Abs. Baso. 0.02 x10E3/uL 0.0-0.1 [facility] Abs. Imm. Gran. 0.04 x10E3/uL 0.0-0.1 [facility] spital ANRBC% 0 % 0 [facility] ID Date Data Source [id number] 04/26/2021 05:06:00 AM EDT [facility] Physician DocumentationClaxton-Cristina Hinkle edical CenterName: Yareli DuvallAge: 20 yrsSex: FemaleDOB: 2000MRN: [id number] Date: 04/25/2021Time: 23:15Account#: [id number] MD: NONE, - Per PatientED Physician Catalino Piresposition Summary:04/26/21 03:21Hospitalization OrderedHospitalization Status: Inpatient Yadrpjaubsq7Yobypujo: Wisam Oneilla1Location: Mental Health Vcvfxv0Slacurtzw: Eleswetr9Dcndgyw: an ongoing opdpvztxo4Oxqfgwao: are mqshdhszofy3Qoks Assignment:yn6Vyyhhrnly- Schizoaffective disorder, msjsexwtmyvyr3Lqxaiebkug Information- Admission Type: Inpatient Status.xh0Glgdc:- Medication Reconciliationna1- SBARna1- Medication Reconciliation Form - 2nd Copyna1- Psych. GZFYmo8ICV:04/1603:21 This 20 yrs old White Female presents [...] 400 mg intramuscular suspension,extended release syringe 400 fsujfga24 days3. ibuprofen 400 mg Oral tablet 1 [...] for drug dependence, alcohol de pendence, auditoryhallucinations, ac9elkvtn hallucinations, homicidal ideation. All other systems are negative.Exam:03:22 Head/Face: Normocephalic, atraumatic. Eyes: Pupils equal round andreactive to light, nc9thitj-qncdwz motions intact. Lids and lashes normal. Conjunctiva [...] ATION & CHF, RESP. FAILURE WITHHYPOXEMIA & cg5LNLDJMOFLLP. PT. HAD 500 ML. 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 IN ED, SOLUMDEROL 80 MG IV, HE IS FEELING BETTER, IN MILD RESP.DISTRESS.PLAN TO ADMIT TO HOSPITALIST SERVICE--DR. SERRANO. PT. AGREABLE WITHADMISSION..04/1523: Order name: Acetaminophen Level; Complete Time: ::33 Order name: C BC with diff; Complete Time: ::33 Order name: CMP; Complete Time: :: Order name: COVID-19 PROFILE+LAB; Complete Time: :: Order name: ETOH; Complete Time: :: Order name: Etzutvdea725/1523: Order name: Salicylate Level; Complete Time: :: Order name: Triage - Drug Screen; Complete Time: ::33 Order name: UA; Complete Time: :: Order name: Urine HCG Qualitative; Complete Time: ::33 Order name: Diet - Mental Health Tray (call dietary); Complete Time:::33 Order name: Belongings Rzkkuh083:33 Order name: Document Weight and Height for BMI; Complete Time: 02::33 Order name: Mental Health Evaluation; Complete Time: 02::33 Order name: Mental Health Level 3; Complete Time: 02::33 Order name: VS q shift; Complete Time: 02:1:12 Order name: Medically Cleared for Eval by-Psychosocial, Sub Prior (.PSA);Complete Time: :42Dispensed Medications:No medications were administeredSignatures:Dispatcher [employer] Ramón Beverly MD MD lt4ZcfmgFortunato humphrey RN RN jw5 Name Value Range Interpretation Code Description Data Stephanie rce(s) Supporting Document(s) ID Date Data Source [id number] 04/26/2021 05:06:00 AM EDT [facility] Tootie terName: Yareli Mejiage: 20 yrsSex: FemaleDOB: 2000MRN: [id number] Date: 04/25/2021Time: 23:15Account#: [id number] [id number] MD: NONE, - Per PatientDiagnosis: Schizoaffective disorder, unspecifiedPresentation:04/1523:17 Presenting complaint: Patient brought by [employer] officer [facility]5evaluation due to suicidal threats brought on by [...] a large of amount ofpeoplelive, such as care home, family care, fci, etc? no. Have you traveled to [facility] widespread or ongoing COVID-19 community spread or outside of [facility]? noHaveyou traveled internationally or had contact with someone that has traveled andhas beenill in the past 3 weeks? no Have you received the COVID vaccine? Yes.CommunicableDisease Screen: Negative for fever>/= 100 degrees Fahrenheit. Communicablediseasescreen is negative. (-) rash or unusual skin lesion (-) travel/contact withtraveler(-) respiratory symptoms. Communication Speaks Indian? Yes, is preferredlanguage.23:17 Acuity: Triage 5wt478:17 Method Of Arrival: Zbuizsap002:19 Acuity Assignment: Triage 2bj2Znogpq Assessment:23:21 General: Appears in no apparent distress, Behavior is anxious,cooperative. Sepsis ak8Zycstvoyk: (1)Signs/symptoms infection No. Pain: Denies pain. PSS-3 [...] 400 mg intramuscular suspension,extended release syringe 400 zoixarw12 days3. ibuprofen 400 mg Oral tablet 1 [...] threats or abuse. Denies injuries from another.Nutritional vt5bvkwahaib: No deficits noted. Offer of HIV testing: patient was previouslyofferedscreening. Fall Risk None identified.Assessment:00:59 Reassessment: see triage.jw501:05 Reassessment: Patient went to bathroom then walked out the ER doors andonto the ER ha7mknq refused to come inside, [employer] called and patient walked back in with patientplacedin restraints as per MD order without incident Patient remained in site at alltimes..02:00 Reassessment: Patient appears in no apparent distress at this time.Patient calm and bw5qlgtprglfrn at this time.02:15 Reassessment: Patient removed from restraints without incident.jw504:32 Reassessment: Patient appears in no apparent distress at this time.za0Efynfzkgzwrx:00:54 SAFE Act Report Not Completed. Intervention: Observation [...] removed. Pt reports that her aunt in [place] just .Shestarted crying saying that she is suicidal and wants help but feels no one willhelpher. Pt reports that she has the plans to either overdose or hang herself. Ptreportsthat she feels that she needs extermination inspector treatment because she feels nothingelse isworking. Pt has a long history of [facility] Pt was last inpatient at [facility] was April 09, 2021. Pthas adiagnosis of Anxiety, Depression, Borderline Personality Disorder. Pt denies HIandhallucinations. Delusions are denied, Hallucinations are denied. Patient's moodisdepressed, Having thoughts of suicide. Plan for suicide is overdose or hangself.01:05 Narrative PSA spoke to Zohra at [facility] [phone] who states that the pttells them oe2scmj she is suicidal every day and she does not understand what is going on.She statesthat this is an every day thing with going to a hospital and gets gettingdischarged.She states that they are lost of what to do at this point and feel that [facility]treatment center.01:13 Patient reports history of anxiety, Bipolar Disorder, Depression, self-mutilation, pw7Bdfbq: BPD. Mental Health Admissions: multiple at multiple facilities last [facility] was04/09/21 Current Outpatient Mental Health Ser vices: Therapist / Agency:Grayson/Zev at [facility]. Living Environment: Family / Home Support: fair Thepatientcurrently lives in a [facility] apartment. The patient is single. Detox / [...] from mask, staff took it from pt. Shewent to the xe8myklvkin then left the ED on the ramp, refusing to come inside. [employer]PD was called.Pt wasput in 4 point restraints.02:40 Transfer plan is communicated to Zohra at [facility]. Consultation: Psych MDinformed of wq7kolkicf's status at 02:00, ED MD notified of patients status at 02:40, MentalHealth ERRN made aware of pt status at 02:15. Disposition: Medically cleared fordisposition byDr Levy. Psychiatric Consult is performed by phone with Dr Dylan Clark NPThepatient is admitted to [facility] M[facility] Patient report is given to Comfort AMAYA. LegalStatus:Patient's legal status will be Emergency: 9.39. Commitment papers arecompleted. pt hasbeen provided with the copy of her legal status and rights. DSM-V DX [place] Idiagnosis:Schizoaffective D/O. Insurance Pre-Certification: Not Required. [facility] AdmissionCriteria: The patient is experiencing suicidal ideation. The patient requirescontinuous observation and/or control to protect self, others or property. Thepatient's care requires a multi-modal treatment plan under close supervisionandcoordination due to the complexity and severity of the patient's symptoms. Thepatientrequires administration and monitoring of psychoactive medications by skilledmedicalproviders due to the side effects of the psychoactive medications orsignificant dosageadjustments. Awaiting transfer to [facility]. Transition of care to pt will beescorted byPSA and security. 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 Plan for suicide is hang self or OD. Objective:Patient iscooperative, Speech is normal, Affect is appropriate. Interventions: Removedpersonalitems and placed in bag. Patient placed in hospital gown. Searched person fordangerousitems. Observation Level Level 3 Sitter needed. Provider notified. [facility] [place] [facility] [place] nurse notified. Fortunato Mark RN Level 3 order placed.Vital Signs:23:21 Pulse 72; Resp 18; Temp 97.8; Pulse Ox 97% ; Weight 104.33 kg; Height 5ft. 6 in. ; jw510/1605:05 BP 128 / 78; Pulse 72; Resp 18; Temp 97.1; Pulse Ox 97% ;jw51/1523:21 Body Mass Index 37.12 (104.33 kg, 167.64 cm)jw5ED Course:04/1523:16 Patient arrived in ED.jw523:17 NONE, - Per Patient is Private Physician.jw523:19 Triage completed.jw51/1600:59 Fortunato Mark, RN is Primary Nurse.jw501:00 Patient has correct armband on for positive identification. Placed ingown. Sitter at mo0rnwqqga.01:00 No Physician assisted procedures completed.jw501:09 Ramón Levy MD is Attending Physician.na102:00 Sitter at bedside.jw503:20 Brooklyn Oneill MD is Hospitalizing Provider.na104:33 Sitter at bedside.am0Kcvfgaxjusxk Medications:No medications were administeredOutcome:03:21 Decision to Hospitalize by Provider.na105:05 Disposition: Admitted to Psych with chart.jw505:05 Condition: ywwbypnvk84:05 Instructed on need for admit.05:05 Discharge Assessment: Patient verbalized understanding of dispositioninstructions.Patient has no functional deficits.05:06 Patient left the ED.gv5Zfdzdugiwl:Ramón Levy MD MD nv4ElfshFortunato humphrey RN RN hu0UxvepsuqUsha Adams ex9Izsderiegjl: (The following items were deleted from the chart)01:01 00:54 Subjective: The patients chief complaint is Pt presents to the EDas a walk in rb4iqoi [employer] for suicidal ideations. Pt had left ED and went on ramp. OPD wascalled tohelp talk to the pt. Pt did agree to come back inside. Pt took her sheet andwrapped itaround her neck. Sheet was removed. Pt reports that her aunt in [place] justpassedaway. She started crying saying that she is suicidal and wants help but feelsno onewill help her. Pt reports that she has the plans to either overdose or hangherself. Ptreports that she feels that she needs extermination inspector treatment because she feelsnothingelse is wo rking. Pt has a long history of being inpatient for mental health atmultipledifferent facilities. Pt was last inpatient at [facility] . sm802:44 01:15 Narrative Pt walked to bathroom then left ED on ramp. [place]. [place] [id number] Name Value Range Interpretation Code Description Data Stephanie rce(s) Supporting Document(s) ID Date Data Source [id number] 04/25/2021 11:05:00 PM EDT [facility] Name Value Range Interpretation Code Description Data Stephanie rce(s) Supporting Document(s) LCOVID-19, CORDELL NEGATIVE [facility] This lab was ordered by [facility] and reported by [facility]. ID Date Data Source [id number] 04/26/2021 12:17:00 AM EDT [facility] Name Value Range Interpretation Code Description Data Stephanie rce(s) Supporting Document(s) COVID-19, CORDELL NEGATIVE NEGATIVE [facility] Methodology: Isothermal Nucleic Acid Amp [...] Emergency Use Authorization. ID Date Data Source [id number] 04/24/2021 03:18:28 PM EDT [facility] NT INFORMATIONPatient MRN Name Date of Age Gend*PT [id number] [place] dwyera 00 20 years M CPEPPT Location Admission Date/Time Visit ID Attending ProviderNONE 04/24/21 1315 --- Laureen Luis MD([id number]) EPI ID CSN Admitting Provider [id number] Attestation signed by Laureen Luis MD at 04/24/2021 3:18 PMInitial time of commencing Psychiatrist uwta-ul-azef encounter with patient:04/24/21 1440 : Laureen Luis MDI have examined the patient, xqhw-ko-nuqf, and have personally participated inperforming a psychiatric [...] treatment plan with the patient and team [facility] PSYCHIATRIC ASSESSMENTPatient Name: Yareli Galindo at [facility]: 04/24/[address] 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 [place]/o [place]. Lives in transitional living. Was [facility] ago. Presents often to [place] for SI per ED staff.Current StressorsCurrent Stressors: Pyschiatric SymptomsHistory of Present IllnessThe patient is a 20-year-old transgender individual (biological female,identifies as male gender, prefers he/him pronouns, preferred name "Daisy"). Thepatient was transferred to [facility] reports of vague suicidal ideation/passive wish [...] back to the ER until they place margarette an new custodial". Thus, these "suicidal statements" appear to be made huyen conditional basis if new housing is secured. Patient is fully connected withoutpatient mental health treatment providers, and an AOT order in [facility] (AOT coordinator is Laureen Alarcon ([phone]) and case folder Taye ([phone]). [facility] also [facility], Mr. Grayson Farley. Has a psychiatricprescriber but patient cannot recall the prescribers name, reports compliancewith medication. Patient resides in a supervised housing program, staffadministers medications at scheduled intervals. Patient denies use of illicitdrugs and does not drink alcohol (UDS obtained at [facility] EDn egative). Patient does add that there is another stressor of pending legalcharges from reportedly assaulting a nurse, resulting in harassment charge, [facility]. Patient has been calm and cooperative at [facility],exhibits strong features of personality disorder [...] to be approved by patient's AOT coordinator, HAMIDA consultordered. However, it has been thoroughly explained to the patient that if a bedis not available at a respite facility today, [facility] as he does not currently meet criteria forinpatient psychiatric hospitalization. [facility] that he will likely represent to another ED (not for any acuteproblem, cites housing as primary stressor). Social work consult has beenordered, case discussed with CPEP team including RN, social services and .Treatment plan goals to be addressed and resolved with social services, see notes.Addendum: I spoke with patient's AOT coordinator Ms. Lorraine Alarcon. Susanxplains that patient is a former [facility] resident, now she is a [facility] resident as she lives in this transitional living facilitywith 01/02 staff in this [facility]. [facility]. [facility] ([place] [place]) [facility] ([place], [place]). Laureen is aware that [facility] is [facility], Lorraine states that this is fine if the respite facility is [facility], Medicaid transportation will bring her back to her communityresidence in [facility] when needed. Ms. Alarcon would like to beupdated when a final disposition is made, she can be reached at [phone].Patient InfoHistory provided by: patient, medical recordsLanguage route carrier used?: NoHPI: Mental Health ProblemPresenting Symptoms: anxiety (Made vague suicidal statements conditional on ifshe is discharged back to her community residence or not, states she would notbe suicidal if she stays in the hospital or goes to a respite facility, no planor intent to harm self or others, no psychosis)Patient accompanied by: (Sent from [facility] ED)Degree of incapacity (severity) : mildTiming: rareProgression: improvingChronicity: chronicContext : Current interpersonal stressorTreatment compliance: all of the timeRelieved by: antipsychotics, mood stabilizersIneffective Treatments: none triedAssociated symptoms: irritabilityRisk factors: (borderline personality disorder)Care Coordination/CollateralObtained, see above.HistoryPast Psychiatric HistoryOutside Treatment HistoryTreatment History Location Date of Last Tx Type of Tx Tx Reason/Dx Tx Length of Stay Tx helpful?Drug/Alcohol Rehab? Records Requested? Comments [facility] March 2019 Inpatient Suicidal thoughts 24 hours No [facility] 2017 Inpatient Suicidal thoughts 1 year [facility] 2007 Inpatient SI a few months [facility] April [...] Memory: IntactInsight: GoodJudgment: Good (Adequate)Orientation: Appropriately Oriented h7Jcvsidin Toward Examiner: CooperativeAssociations: No loosening evidentFund of [...] end yourlife)? 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 reported to security chief museum that she "drank some mouthwash" 3weeks ago [...] to the hospital because he dislikes his custodial, wants usto get a new custodial for him, future and goal oriented, no [...] plan goals to beaddressed and resolved with social services, see notesPlan/Assessment #2: No medication changes, c ontinue home medication regimen asprescribedPlan/Assessment #3: Chart reviewed, outpatient treatment team to be contacted byEP social services (social work consult ordered)General Treatment Plan - GOAL: The patient will have stabilization of presentingsymptoms in order to progress towards discharge from [facility] and have identifiedthe resources available until outpatient follow up.OBJECTIVE: The patient will be assisted with support resources post discharge:While at [facility], the RN or transfer worker will have a one on one conversation withthe patient to verbally identify their individual supports post discharge.,While at [facility], the RN or Solid Waste Disposal Manager will have a one on one conversation withthe patient to verbally identify whom to contact for collateral information andobtain patient consent in writing., While at [facility], the RN or Solid Waste Disposal Manager willhave a one on one conversation with the patient to verbally identify what followup resources will be most beneficial to the patient., While at [facility], the RN orSocial Worker will have a one on one conversation with the patient to verballyidentify any of their perceived and/or actual barriers to post discharge care.,While at [facility], the RN or Solid Waste Disposal Manager will have a one on one conversation withthe patient to verbally explain the Mobile Crisis Outreach Team and encouragepatient to follow up with an appointment.Anxiety Treatment Plan - GOAL: The patient will have stabilization ofpresenting symptoms in order to progress towards discharge from [facility] and haveidentified the resources available until outpatient follow up.OBJECTIVE: The patient will have reduced overall frequency, intensity, andduration of anxiety so that activities of daily living are not impaired while atCP.: While at [facility], the RN or transfer worker will have a one on oneconversation with the patient to verbally identify their triggers for anxiety.,While at [facility], the RN or Solid Waste Disposal Manager will have a one on one conversation [...] No changes [] No side effectsBilling Code: [id number] signed byLonnie Villegas Dlckjhjbjsvw36/14/21 1459Lonnie Villegas Snaskzvcrrnt02/14/21 1500 Name Value Range Interpretation Code Description Data Stephanie rce(s) Supporting Document(s) ID Date Data Source [id number] 04/23/2021 10:55:00 PM EDT [facility] Name Value Range Interpretation Code Description Data Stephanie rce(s) Supporting Document(s) Respiratory specimen severe acute respir atory syndrome coronavirus 2 (SARS-CoV-2) RNA Negative (qualifier value) [facility] This lab was ordered by [facility] and reported by . ID Date Data Source [id number] 04/23/2021 11:18:00 PM EDT [facility] Name Value Range Interpretation Code Description Data Stephanie rce(s) Supporting Document(s) SARS-CoV-2 RNA Negative Normal (applies to non-numeric r esults) [facility] Negative results should be treated as [...] Certificate of Accreditation. Factsheets for healthcare providers: https://www.fda.gov/media/947982/download Factsheets for patients: https://www.fda.gov/media/031533/download The ID NOW Instrument is a rapid molecular in vitro diagnostic test utilizing an isothermal nucleic acid amplification technology intended for the qualitative detection of nucleic acid from the SARS-CoV-2 viral RNA. THIS IS A STATE REPORTABLE COMMUNICABLE DISEASE. Manual entry verified by Megan Murphy 04/23/21 2317 ID Date Data Source [id number] 04/23/2021 10:16:00 PM EDT [facility] Name Value Range Interpretation Code Description Data Stephanie rce(s) Supporting Document(s) Troponin I 0.000-0.056 Normal (applies to non-numeric resu lts) [facility] ID Date Data Source [id number] 04/23/2021 10:16:00 PM EDT [facility] Name Value Range Interpretation Code Description Data Stephanie rce(s) Supporting Document(s) Sodium 141 mmol/L 136-145 Normal (applies to non-numeric resul ts) [facility] Potassium 3.5-5.1 Normal (applies to non-numeric resul ts) [facility] Chloride 106 mmol/L 98-107 Normal (applies to non-numeric resul ts) [facility] Carbon Dioxide CO2 21-32 Normal (applies to non-numer ic results) [facility] Anion Gap 5.0-16.0 Normal (applies to non-numeric resul ts) [facility] BUN 18 mg/dL 7-18 Normal (applies to non-numeric results) [facility] Creatinine,Serum 0.7-1.2 Normal (applies to non-numeric results) [facility] GFR >60 Normal (applies to non-numeric results) [facility] Glucose Level 108 mg/dL 60-99 Above high normal [facility] Reference range is only applicable when patient is fasting Note the following drug interference: Sulfasalazine Sulfapyridine Can see falsely depressed Can see falsely elevated result with up to 17% results with up to 11% decrease in measurement increase in measurement Recommend patients be collected for this test prior to administration of either drug. Calcium 8.5-10.1 Normal (applies to non-numeric resul ts) [facility] Bilirubin,Total 0.1-1.9 Normal (applies to non-numeric results) [facility] SGOT(AST) 34 U/L 15-37 Normal (applies to non-numeric resul ts) [facility] Note the following drug interference: Sulfasalazine Sulfapyridine Can see falsely depressed Can see falsely elevated result with up to 10% results with up to 10% decrease in measurement increase in measurement Recommend patients be collected for this test prior to administration of either drug. SGPT(ALT) 57 U/L 12-78 Normal (applies to non-numeric resul ts) [facility] Note the following drug interference: Sulfasalazine Sulfapyridine Can see falsely depressed Can see falsely elevated result with up to 29% results with up to 10% decrease in measurement increase in measurement Recommend patients be collected for this test prior to administration of either drug. Alkaline Phosphatase 125 U/L 38-126 Normal (applies to non-num deena results) [facility] can increase Alkaline Phosp le vels up to 2 times the normal adult value. Normal values for children and adolescents are 2 to 3 times the normal adult value. Total Protein 6.0-8.2 Normal (applies to non-numeric re sults) [facility] Albumin Level 3.4-5.0 Normal (applies to non-numeric re sults) [facility] ID Date Data Source [id number] 04/23/2021 10:16:00 PM EDT [facility] Name Value Range Interpretation Code Description Data Stephanie rce(s) Supporting Document(s) Magnesium 1.8-2.4 Normal (applies to non-numeric resul ts) [facility] ID Date Data Source [id number] 04/23/2021 10:16:00 PM EDT [facility] Name Value Range Interpretation Code Description Data Stephanie rce(s) Supporting Document(s) Salicylate 2.8-20.0 Below low normal [facility] ospital ID Date Data Source [id number] 04/23/2021 10:16:00 PM EDT [facility] Name Value Range Interpretation Code Description Data Stephanie rce(s) Supporting Document(s) Acetaminophen 10.0-30.0 Below low normal [facility] ID Date Data Source [id number] 04/23/2021 10:13:00 PM EDT [facility] Name Value Range Interpretation Code Description Data Stephanie rce(s) Supporting Document(s) Ethanol Less than 10.0 Normal (applies to non-numeric r esults) [facility] ID Date Data Source [id number] 04/23/2021 09:42:00 PM EDT [facility] Name Value Range Interpretation Code Description Data Stephanie rce(s) Supporting Document(s) White Blood Count 3.5-10.5 Normal (applies to non-numeri c results) [facility] Red Blood Count 3.90-5.00 Normal (applies to non-numeric results) [facility] Hemoglobin 12.0-15.5 Normal (applies to non-numeric resul ts) [facility] Hematocrit 34.9-44.5 Normal (applies to non-numeric resul ts) [facility] Mean Corpuscular Volume 81.2-95.1 Normal (applies to non- numeric results) [facility] Mean Corpuscular Hgb 25.6-32.2 Normal (applies to non-num deena results) [facility] Mean Corpuscular Hgb Conc 32.0-36.0 Normal (applies to no n-numeric results) [facility] Red Cell Distribution Width 11.9-15.5 Normal (appli es to non-numeric results) [facility] Platelet Count 288 x10 3/uL 150-450 Normal (applies to non-numeric results) [facility] Mean Platelet Volume 9.4-12.4 Normal (applies to non-num deena results) [facility] Neutrophils% (Auto) 31.0-71.0 Normal (applies to non-nume frank results) [facility] Lymphocytes% (Auto) 20.0-55.0 Normal (applies to non-nume frank results) [facility] Monocytes% (Auto) 4.0-12.0 Normal (applies to non-numeri c results) [facility] Eosinophils% (Auto) 1.0-8.0 Normal (applies to non-nume frank results) [facility] Basophils% (Auto) 0.0-2.0 Normal (applies to non-numeri c results) [facility] Immature Granulocytes% (Auto) 0.0-2.0 Normal (alexander lies to non-numeric results) [facility] Neutrophils# (Auto) 1.50-6.20 Normal (applies to non-nume frank results) [facility] Lymphocytes# (Auto) 1.20-4.00 Normal (applies to non-nume frank results) [facility] Monocytes# (Auto) 0.00-0.90 Normal (applies to non-numeri c results) [facility] Eosinophils# (Auto) 0.00-0.50 Normal (applies to non-nume frank results) [facility] Basophils# (Auto) 0.00-0.20 Normal (applies to non-numeri c results) [facility] Immature Granulocytes# (Auto) 0.00-7.00 No rmal (applies to non-numeric results) [facility] ID Date Data Source [id number] 04/23/2021 09:58:00 PM EDT [facility] Name Value Range Interpretation Code Description Data Stephanie rce(s) Supporting Document(s) UDS Benzodiazepines Screen Negative Normal (applies to n on-numeric results) [facility] UDS Cocaine Screen Negative Normal (applies to non-numer ic results) [facility] UDS Ampetamine Screen Negative Normal (applies to non-nu meric results) [facility] UDS Cannabinoids Screen Negative Normal (applies to non- numeric results) [facility] UDS Opiates Screen Negative Normal (applies to non-numer ic results) [facility] UDS Barbiturates Screen Negative Normal (applies to non- numeric results) [facility] Threshold Levels Benzodiazepine 200 ng/mL Cocaine 300 ng/mL Amphetamines 1000 ng/mL Cannabinoids (THC) 50 ng/mL Opiates 300 ng/mL Barbiturates 200 ng/mL All positive findings are presumptive and unconfirmed. Confirmation of positive results are performed only at request of provider. Unconfirmed results must not be used for non-medical purposes (i.e. preemployment and legal purposes) ID Date Data Source [id number] 04/23/2021 09:52:00 PM [facility] Collected By: Nurse Initials: JT Time Collected: 2115 Collected By: Nurse Initials: JT Time Collected: 2115 Collected By: Nurse Initials: JT Time Collected: 2115 Name Value Range Interpretation Code Description Data Stephanie rce(s) Supporting Document(s) Color,Urine Colorl-Dk Y Normal (applies to non-numeric res ults) [facility] Clarity,Urine Clear Normal (applies to non-numeric re sults) [facility] Specific [place],Urine 1.005-1.030 Normal (applies to non- numeric results) [facility] pH,Urine 5.0-8.0 Normal (applies to non-numeric resul ts) [facility] Protein,Urine Negative [facility] [place] Glucose,Urine Negative Normal (applies to non-numeric re sults) [facility] Ketones,Urine Negative Normal (applies to non-numeric re sults) [facility] Blood,Urine Negative [facility] l Bilirubin,Urine Negative Normal (applies to non-numeric results) [facility] Urobilinogen,Urine 0.2-1.0 Normal (applies to non-numer ic results) [facility] Leukocyte Esterase,Urine Negative Normal (applies to non -numeric results) [facility] Nitrite,Urine Negative Normal (applies to non-numeric re sults) [facility] ID Date Data Source [id number] 04/23/2021 09:52:00 PM [facility] Collected By: Nurse Initials: JT Time Collected: 2115 Collected By: Nurse Initials: JT Time Collected: 2115 Collected By: Nurse Initials: JT Time Collected: 2115 Name Value Range Interpretation Code Description Data Stephanie rce(s) Supporting Document(s) RBC,Urine None Seen [facility] WBC,Urine None Seen [facility] Casts,Urine None Seen Normal (applies to non-numeric resu lts) [facility] Squamous Cells,Urine None Seen [facility] Amorphous Sediment,Urine None Seen [facility] Bacteria,Urine None Seen [facility] ital ID Date Data Source [id number] 04/23/2021 09:52:00 PM EDT [facility] Collected By: Nurse Initials: JT Time Collected: 2115 Collected By: Nurse Initials: JT Time Collected: 2115 Collected By: Nurse Initials: JT Time Collected: 2115 Name Value Range Interpretation Code Description Data Stephanie rce(s) Supporting Document(s) HCG,Ur Negative Normal (applies to non-numeric results) [facility] ID Date Data Source [id number] 04/21/2021 02:53:00 PM EDT [address] CONSULTPATIENT NAME: YARELI HATCH MR#: [id number] PHYSICIAN:[facility] DATE: #: ERPATIENT : 00See AddendumHistoryHistory of Presenting IllnessPatient is 20-year-old female, currently lives in [facility], single, pastpsych history of borderline personality disorder, bipolar disorderChief complaint: Suicidal ideationHistory of present illness: Patient was seen along with PA students. Accordingto information from PSA patient was presented last night. She was banging herhead and expressing suicidal ideation while she was at [facility] and that is when shewas brought into [...] as reaching out to staff member at [facility] if she does not feel safe.ER physician seems to be frustrated with patient recurrent emergency room visitbut upon discussion with the patient patient denied having any such behaviorpertaining to her safety prior to coming to the hospital or any intent to harmherself prior to the hospital. She was also requesting to have her clotheschanged and going back to [facility] as she was under order of [facility]. [...] this point.Past Psych/Medical HistoryAllergiesCoded Allergies:risperidone (08/04/19)ADDENDUM: Colleen SMITH,[facility] on 04/21/21 at 1504Patient was also offered a voluntary admission to inpatient mental health unitfor further treatment or if she does not feel safe to return back to [facility].However patient declined and also recommended case management services toprovide her help to find a suitable place that patient likes.DATE SIGNED: 04/21/21 Electronically SignedTIME SIGNED: [id number] BOGDAN ALMAGUER MD Name Value Range Interpretation Code Description Data Stephanie rce(s) Supporting Document(s) ID Date Data Source [id number] 04/20/2021 11:19:00 PM EDT [facility] [place] Name Value Range Interpretation Code Description Data Stephanie rce(s) Supporting Document(s) SALICYLATE < 1.7 mg/dL 0.0-20.0 [facility] ID Date Data Source [id number] 04/20/2021 11:19:00 PM EDT [facility] [place] Name Value Range Interpretation Code Description Data Stephanie rce(s) Supporting Document(s) ACETAMINOPHEN < 2.0 ug/mL 0-30 [facility] Date Data Source [id number] 04/20/2021 11:19:00 PM EDT [facility] [place] Name Value Range Interpretation Code Description Data Stephanie rce(s) Supporting Document(s) ETOH NONE DETECTED N [facility] NONE DETECTED ID Date Data Source [id number] 04/20/2021 11:19:00 PM EDT [facility] [place] Name Value Range Interpretation Code Description Data Stephanie rce(s) Supporting Document(s) GLU 100 mg/dL 70-110 [facility] Patients taking Sulfasalazine may have f alsely depressedGlucose levels. Patients taking Sulfapyridine may havefalsely elevated Glucose levels. Patients should be drawnfor Glucose before the initial administration of eitherdrug. BUN 16 mg/dL 7-23 [facility] CRE 0.657 mg/dL 0.500-1.300 [facility] GFR > 60 mL/min [facility] CHLORIDE 111 mmol/L 99-110 [facility] NA 142 mmol/L 136-147 [facility] POTASSIUM 3.9 mmol/L 3.5-5.1 [facility] TCO2 24 mmol/L 20-33 [facility] ANION GAP 10.9 10.0-20.0 [facility] CA 8.6 mg/dL 8.3-10.7 [facility] ALKALINE PHOS 118 U/L 45-117 [facility] TP 7.4 g/dL 6.0-7.8 [facility] ALB 3.4 g/dL 3.5-5.0 [facility] ESRD Dialysis patient Albumin reference range: 2.9-4.4 g/dL GL 4.0 g/dL 2.3-3.5 H [facility] A/G 0.9 1.0-2.5 [facility] T. BILIRUBIN 0.3 mg/dL 0.1-1.1 [facility] The [employer] [place] Total Bilirubin is n ot recommended forpatients undergoing treatment with eltrombopag (Promacta)due to the potential for falsely elevated results. ALTI 46 U/L 6-54 [facility] Patients taking Sulfasalazine and/or Sul fapyridine may havefalsely depressed ALT levels. Patients should be drawn forALT before the initial administration of either drug. AST 33 U/L 6-38 [facility] Patients taking Sulfasalazine and/or Sul fapyridine may havefalsely depressed AST levels. Patients should be drawn forAST before the initial administration of either drug. ID Date Data Source [id number] 04/20/2021 11:01:00 PM EDT [facility] [place] Name Value Range Interpretation Code Description Data Stephanie rce(s) Supporting Document(s) WBC 7.79 x10E3/uL 4.0-10.5 [facility] RBC 3.99 x10E6/uL 4.20-5.40 [facility] Hemoglobin 11.7 g/dL 12.0-16.0 [facility] Hematocrit 35.3 % 37.0-47.0 [facility] MCV 88.5 fL 81.0-99.0 [facility] MCH 29.3 pg 27.0-31.0 [facility] MCHC 33.1 g/dL 32.7-35.6 [facility] RDW 12.2 % 11.5-14.0 [facility] Platelet count 264 x10E3/uL 150-450 [facility] ital MPV 9.5 fl 6.9-9.5 [facility] Neutrophils 65.2 % 34-64 [facility] Lymphocytes 27.2 % 25-45 [facility] Monocytes 6.0 % 1.7-10.6 N [facility] Eosinophils 1.0 % 0.4-7.0 [facility] Basophils 0.3 % 0.1-2.0 [facility] Imm. Gran. 0.3 % 0.1-2.0 [facility] Abs. Neutro. 5.08 x10E3/uL 1.2-7.6 [facility] [place] Abs. Lymph. 2.12 x10E3/uL 1.0-3.5 [facility] Abs. Levy. 0.47 x10E3/uL 0.1-1.0 [facility] Abs. Eosin. 0.08 x10E3/uL 0.1-0.7 [facility] Abs. Baso. 0.02 x10E3/uL 0.0-0.1 N [facility] l Abs. Imm. Gran. 0.02 x10E3/uL 0.0-0.1 [facility] spital ANRBC% 0 % 0 [facility] ID Date Data Source [id number] 04/20/2021 10:40:00 PM EDT [facility] Name Value Range Interpretation Code Description Data Stephanie rce(s) Supporting Document(s) LCOVID-19, CORDELL NEGATIVE [facility] This lab was ordered by [facility] and reported by [facility]. ID Date Data Source [id number] 04/20/2021 11:16:00 PM EDT [facility] Name Value Range Interpretation Code Description Data Stephanie rce(s) Supporting Document(s) COVID-19, CORDELL NEGATIVE NEGATIVE [facility] Methodology: Isothermal Nucleic Acid Amp lification for [...] Emergency Use Authorization. ID Date Data Source [id number] 04/21/2021 03:43:00 PM EDT [facility] [place] Physician DocumentationClaxlexy-Cristina Hinkle edical CenterName: Yareli AdamelAge: 20 yrsSex: FemaleDOB: 2000MRN: [id number] Date: 04/20/2021Time: 22:29Account#: [id number] MD: NONE, - Per PatientED Physician Ab Pires Summary:04/21/21 15:00Discharge OrderedLocation: Home Self CareafProblem: an ongoing problemafSymptoms: are unchangedafCondition: StableafDiagnosis- Adjustment disorder, unspecifiedafFollowup:af- With: Private Physician- When: 1 week- Reason: Recheck today's complaintsDischarge Instructions:- ADJUSTMENT DISORDERaf- Discharge Summary Xeqciol2Jovgi:- Medication Reconciliationaf- Medication Reconciliation Form - 2nd CopyafHPI:04/1104:45 This 20 yrs old White Female presents to ER via Police with complaints ofPsych Problem.na104:45 The patient presents to the emergency department with depression, PT.BROUGHT TO ED BY ni3LQBD FOR MHE. APPARENTLY SHE WAS HITTING HER [...] 400 mg intramuscular suspension,extended release syringe 400 wwitvos71 days3. ibuprofen 400 mg Oral tablet 1 [...] Negative for drug dependence, alcohol dependence, auditoryhallucinations, as8euqxop hallucinations, homicidal ideation. All other systems are negative.Exam:04:49 Head/Face: Normocephalic, atraumatic. Eyes: Pupils equal round andreactive to light, bw7uibyz-hqvwok motions intact. Lids and lashes normal. Conjunctiva [...] 97.7(T); Pulse Ox 95% on R/A; Pain0/10; jl15:41lh323/2:32 Body Mass Index 37.12 (104.33 kg, 167.64 cm)ef110/1115:40 Pain Scale: Hvnhstv99:43 pzfpadgeol3YWV:03:21 Patient medically screened.na104:50 Data reviewed: vital signs, nurses notes, lab test result(s).na1102:31 Order name: Acetaminophen Level; Complete Time: 03:2:31 Order name: CBC with diff; Complete Time: 03::32 Order name: CMP; Complete Time: 03:2:32 Order name: COVID-19 PROFILE+LAB; Complete Time: 03:2:32 Order name: ETOH; Complete Time: 03:73ts305/1022:32 Order name: Puiobjjzm5762:32 Order name: Salicylate Level; Complete Time: 03:2:32 Order name: Triage - Drug Xsklpoul616/1022:32 Order name: ENfv3702:32 Order name: Urine HCG [place] drexz642/1022:32 Order name: Diet - Mental Health Tray (call dietary); Complete Time:22:43 2:32 Order name: Belongings List; Complete Time: 15::32 Order name: Document Weight and Height for BMI; Complete Time: 15:2:32 Order name: Mental Health Evaluation; Complete Time: 15:3:24 Order name: Medically Cleared for Eval by- Psychosocial, Sub Prior (YE)zi3Trokwdokw Medications:15:42 Not Given (Patient Refused): ARIPiprazole 10 mg PO vatapt028:42 Not Given (Patient Refused): Loratadine 10 mg PO nfryan203:42 Not Given (Patient Refused): Singulair Chewable Tablet 10 mg PO ngcevf959:42 Not Given (Patient Refused): Propranolol 10 mg PO byypwr009:42 Not Given (Patient Refused): sertraline 50 mg PO vukjtw155:42 Not Given (Physician Discretion): Topiramate 75 mg PO jsxezt2Oexmtvpita:Dispatcher [employer] Anshul Loving MD MD afAl-Hussein, Nabeel, MD MD na1Hilborne, Erica, RN RN ef1 Name Value Range Interpretation Code Description Data Stephanie rce(s) Supporting Document(s) ID Date Data Source [id number] 04/21/2021 03:43:00 PM EDT [facility] [place] Nurse's NotesClaxton-Washtucna Medical Tootie terName: Yareli DuvallAge: 20 yrsSex: FemaleDOB: 2000MRN: [id number] Date: 04/20/2021Time: 22:29Account#: [id number] MD: NONE, - Per PatientDiagnosis: Adjustment disorder, unspecifiedPresentation:04/1022:30 Presenting complaint: Patient states: the molder machine got me because i wasbanging my head and ub0yadckguglj to tie something around my neck. International Travel Fever No.CoronavirusScreening: Have you received the COVID vaccine? Yes. Communicable DiseaseScreen:Negative for fever>/= 100 degrees Fahrenheit. Communicable disease screen isnegative.(-) rash or unusual skin lesion (-) travel/contact with traveler (-)respiratorysymptoms. Communication Speaks Indian? Yes, is preferred language.22:30 Acuity: Triage 4od254:30 Acuity Assignment: Triage 2au245:30 Method Of Arrival: Jkklecjf2Bkutyu Assessment:22:31 General: Appears in no apparent distress, [...] threats or abuse. Denies injuries from another.Nutritional yb2vqtkmlqgt: No deficits noted. Offer of HIV testing: patient was previouslyofferedscreening. Fall Risk None identified.Assessment:22:35 General: Appears in no apparent distress, obese, unkempt, Behavior isagitated. Neuro: be0Kstmp of Consciousness is awake, alert, obeys commands. Respiratory: Nodeficits noted.04/1100:40 Reassessment: Reassessment: pt continually yelling and arguing andthrowing chairs [employer] fwmagisella aware - MD aware - pt has [...] is generated by a policeagency: Police. The on8djqaeby was referred for evaluation because Pt states "the molder machine got me becauseI wasbanging my head and threatened to tie something around my neck.".14:14 Subjective: The patients chief complaint is Pt presents to the ED withPolice due to em2the pt banging her head against the wall and threatening to tie somethingaround herneck at the [facility] facility. During MHE, pt denies SI/HI/ Pt denieshallucinations. Ptdenies self harm. Pt states she was just mad at [facility] facility due to being"pissed off"because she hates her current [facility] housing. Pt denies being verbally abusivetowardsstaff at [facility]. Pt denies threatening to tie something around her neck at [facility]. Pt states she would like to be discharged home as she is not suicidalandhomicidal. Pt has outpatient services at [facility] counselor [place]. Pt denies legal issues. Pt denies access toguns. PSAspoke with Nikky at [facility]. Nikky states the pt was banging her head in her roomand inthe hallway there at her residence. Nikky states the pt was verbally abusivetowardsstaff. Nikky states there needs to be a better plan for the pt as there seemsto be apattern of her going to the ED since she has been at [facility] since February 13 2021.Delusions are denied, Hallucinations are denied. Patient's mood is euthymic.14:22 Patient reports history of anxiety, Bipolar Disorder, Depression, Other:Borderline ty3Fvjlkhzeaud Disorder. Mental Health Admissions: [facility], [facility]ist / Agency: [facility] Living Environment: Family / Home Support: Fair The patient currentlylives kaley [facility] residence. The patient is single. Detox / Rehab Admissions: None. CurrentOutptAlcohol or Substance Abuse Services: None.14:24 Patient presents to Emergency Department with the following symptomswithin the past 2 tq9mciqo: self-mutilation, suicidal statements/threats. Objective: Patient iscooperative,Speech is normal. Affect is appropriate. Patient has mutilated themselves bycuttingright arm and left arm Cuts on arms from wire in face mask at [facility] facility tw[place]ago. Mental status exam: Patients appearance [...] by phone with Dr Almaguer. DSM-V DX [place] I diagnosis:Adjustment D/OUnspecified [place] II diagnosis: Deferred [place] III diagnosis: None. [place] IVdiagnosis:poor coping skills. [place] Suicide Severity Rating Scale: Suicidal IdeationRating 0;Intensity of Ideations Rating 0; Suicidal Behavior Rating 0.14:35 Narrative Pt will be discharged back to [facility] per Dr. Almaguer with a diagnosisof Adjustment lh2Mogfcxmn. Pt can contract for safety. Pt denies SI/HI. Pt will follow up [facility]theiroutpatient provider, [facility] and upcomingappointmentswill be verified and expedited. Pt has been provided with the PSA and [employer]. Pt has been instructed to take medications as prescribed and return [facility] ED should problems continue or worsen. Per Dr. Almaguer, pt will complete 5copingskills/5 goals[address]15:[address] Almaguer spoke with ED Dr. Strauss. Dr. Almaguer states the ptcapable of wz4qgirgz to the ED whenever she feels suicidal and that she needs to. Dr. Alvarezuggestsinvolving Case Management and having [facility] make requests for other housingservices ifthe pt wishes not to live at [facility]. Dr. Almaguer states if the pt is [...] 97.7(T); Pulse Ox 95% on R/A; Pain0/10; jl15:95ej236/1022:32 Body Mass Index 37.12 (104.33 kg, 167.64 cm)ef110/1115:40 Pain Scale: Wcooecp76:43 njfxruhbay6SU Course:04/1022:29 Patient arrived in ED.ef122:29 NONE, - Per Patient is Private Physician.ef122:30 Triage completed.ef122:35 Patient has correct armband on for positive identification. Bed in lowposition. Sitter ef1at bedside. Verbal reassurance given. Pillow given.22:35 Labs drawn. Collected by lab. Nasal Swab.ef1101103:21 Ramón Levy MD is Attending Physician.na106:52 Resting quietly.fw10:17 Appears to be sleeping.ef115:43 No Physician assisted procedures completed.lh3Hzyduxyfaufg Medications:15:42 Not Given (Patient Refused): ARIPiprazole 10 mg PO sdwywf688:42 Not Given (Patient Refused): Loratadine 10 mg PO :42 Not Given (Patient Refused): Singulair Chewable Tablet 10 mg PO mnikpv830:42 Not Given (Patient Refused): Propranolol 10 mg PO qxclav086:42 Not Given (Patient Refused): sertraline 50 mg PO :42 Not Given (Physician Discretion): Topiramate 75 mg PO eayelk9Ifubovb:15:00 Discharge ordered by .af15:43 Disposition: Discharged to home ambulatory.ef115:43 Condition: stable, Provider notified of abnormal vital signs.15:43 Discharge instructions given to patient, Instructed on dischargeinstructions, followup and referral plans. Demonstrated understanding of instructions.15:43 Discharge Assessment: Patient verbalized understanding of dispositioninstructions.Patient able15:43 Patient left the ED.e i5Utqevwoohi:Anshul Strauss MD MD afAl-Hussein, Nabeel, MD MD na1Hilborne, Erica RN RN wv1EhXtmvo, BerthaJOSE LUIS RN, Fayeanne, RN RN fwMoyer, Elissa wc3Gnvczdswyqn: (The following items were deleted from the chart)00:50 00:40 [facility] 13:54 Referral Information: Evaluation referral is generated by ga7pe245:41 14:35 Narrative Pt will be discharged back to [facility] per Dr. Almaguer. Pt cancontract for ry0aqqmow. Pt denies SI/HI. [facility] and upcoming appointments will be verifiedandexpedited. Pt [...] threatening to tie somethingaround herneck at the [facility] facility. During MHE, pt denies SI/HI/ Pt denieshallucinations. Ptdenies self harm. Pt states she was just mad at [facility] facility due to being"pissed off"because she hates her current [facility] housing. Pt denies being verbally abusivetowardsstaff at [facility]. [facility]. Pt states she would like to be discharged home as she is not suicidalandhomicidal. Pt has outpatient services at [facility] health counselor [place]. Pt denies legal issues. Pt denies access toguns..Delusions are denied, Hallucinations are denied. Patient's mood is euthymic.em2 Name Value Range Interpretation Code Description Data Stephanie rce(s) Supporting Document(s) ID Date Data Source [id number] 04/19/2021 03:01:00 AM EDT [facility] Name Value Range Interpretation Code Description Data Stephanie rce(s) Supporting Document(s) SALICYLATE < 1.7 mg/dL 0.0-20.0 [facility] ID Date Data Source [id number] 04/19/2021 03:01:00 AM EDT [facility] Name Value Range Interpretation Code Description Data Stephanie rce(s) Supporting Document(s) ACETAMINOPHEN < 2.0 ug/mL 0-[facility] Data Source [id number] 04/19/2021 03:01:00 AM EDT [facility] Name Value Range Interpretation Code Description Data Stephanie rce(s) Supporting Document(s) ETOH NONE DETECTED [facility] NONE DETECTED ID Date Data Source [id number] 04/19/2021 03:01:00 AM EDT [facility] Name Value Range Interpretation Code Description Data Stephanie rce(s) Supporting Document(s) GLU 86 mg/dL 70-110 [facility] Patients taking Sulfasalazine may have f alsely depressedGlucose levels. Patients taking Sulfapyridine may havefalsely elevated Glucose levels. Patients should be drawnfor Glucose before the initial administration of eitherdrug. BUN 13 mg/dL 7-23 [facility] CRE 0.615 mg/dL 0.500-1.300 [facility] GFR > 60 mL/min [facility] CHLORIDE 113 mmol/L 99-110 [facility] NA 142 mmol/L 136-147 [facility] POTASSIUM 3.9 mmol/L 3.5-5.1 [facility] TCO2 24 mmol/L 20-33 [facility] ANION GAP 8.9 10.0-20.0 [facility] CA 8.6 mg/dL 8.3-10.7 [facility] ALKALINE PHOS 112 U/L 45-117 [facility] TP 7.3 g/dL 6.0-7.8 [facility] ALB 3.3 g/dL 3.5-5.0 [facility] ESRD Dialysis patient Albumin reference range: 2.9-4.4 g/dL GL 4.0 g/dL 2.3-3.5 H [facility] A/G 0.8 1.0-2.5 L [facility] T. BILIRUBIN 0.2 mg/dL 0.1-1.1 [facility] The [employer] [place] Total Bilirubin is n ot recommended forpatients undergoing treatment with eltrombopag (Promacta)due to the potential for falsely elevated results. ALTI 41 U/L 6-54 [facility] Patients taking Sulfasalazine and/or Sul fapyridine may havefalsely depressed ALT levels. Patients should be drawn forALT before the initial administration of either drug. AST 26 U/L 6-38 [facility] Patients taking Sulfasalazine and/or Sul fapyridine may havefalsely depressed AST levels. Patients should be drawn forAST before the initial administration of either drug. ID Date Data Source [id number] 04/19/2021 02:32:00 AM EDT [facility] [place] Name Value Range Interpretation Code Description Data Stephanie rce(s) Supporting Document(s) WBC 7.86 x10E3/uL 4.0-10.5 [facility] RBC 3.92 x10E6/uL 4.20-5.40 L [facility] Hemoglobin 11.6 g/dL 12.0-16.0 [facility] Hematocrit 35.0 % 37.0-47.0 [facility] MCV 89.3 fL 81.0-99.0 [facility] MCH 29.6 pg 27.0-31.0 [facility] MCHC 33.1 g/dL 32.7-35.6 [facility] RDW 12.1 % 11.5-14.0 [facility] Platelet count 276 x10E3/uL 150-450 [facility] ital MPV 9.4 fl 6.9-9.5 [facility] Neutrophils 60.4 % 34-64 [facility] Lymphocytes 30.8 % 25-45 [facility] Monocytes 6.9 % 1.7-10.6 [facility] Eosinophils 1.1 % 0.4-7.0 [facility] Basophils 0.3 % 0.1-2.0 [facility] Imm. Gran. 0.5 % 0.1-2.0 N [facility] Abs. Neutro. 4.75 x10E3/uL 1.2-7.6 [facility] Abs. Lymph. 2.42 x10E3/uL 1.0-3.5 [facility] Abs. Levy. 0.54 x10E3/uL 0.1-1.0 [facility] Abs. Eosin. 0.09 x10E3/uL 0.1-0.7 [facility] Abs. Baso. 0.02 x10E3/uL 0.0-0.1 [facility] Abs. Imm. Gran. 0.04 x10E3/uL 0.0-0.1 N [facility] spital ANRBC% 0 % 0 [facility] ID Date Data Source [id number] 04/19/2021 02:36:00 AM EDT [facility] Name Value Range Interpretation Code Description Data Stephanie rce(s) Supporting Document(s) PCP VISTA NEG NEGATIVE [facility] MINIMUM LEVEL OF DETECTION IS 25 ng/ml BENZODIAZEPINES NEG NEGATIVE [facility] MINIMUM LEVEL OF DETECTION IS 200 ng/ml COCAINE VISTA NEG NEGATIVE [facility] MINIMUM LEVEL OF DETECTION IS 300 ng/ml AMPHETAMINES NEG NEGATIVE [facility] MINIMUM LEVEL OF DETECTION IS 1000 ng/ml [facility]BITUR[facility]IVE [facility] CUTOFF CONCENTRATION IS 200 ng/ml CANNABINOIDS NEG NEGATIVE [facility] CUTOFF CONCENTRATION IS 50 ng/ml METHADONE VISTA NEG NEGATIVE [facility] MINIMUM LEVEL OF DETECTION IS 300 ng/ml OPIATE VISTA NEG NEGATIVE [facility] MINIMUM DETECTION LEVEL IS 300 ng/ml ID Date Data Source [id number] 04/19/2021 02:16:00 AM EDT [facility] Name Value Range Interpretation Code Description Data Stephanie rce(s) Supporting Document(s) HCG QUAL URINE Negative Negative [facility] ID Date Data Source [id number] 04/19/2021 02:16:00 AM EDT [facility] Name Value Range Interpretation Code Description Data Stephanie rce(s) Supporting Document(s) URINE COLOR Yellow N [facility] UAPR Cloudy N [facility] UGLU Negative NEGATIVE N [facility] URINE BILIRUBIN Negative NEGATIVE N [facility] UKET Negative NEGATIVE [facility] USG 1.029 1.010-1.025 H [facility] UBLO Negative NEGATIVE [facility] UpH 5.5 5.0-8.0 [facility] UPRO Negative Negative [facility] UUB 1.0 mg/dL 0.2-1.0 [facility] UNIT Negative Negative [facility] ULEU Negative Negative [facility] ID Date Data Source [id number] 04/19/2021 01:30:00 AM EDT [facility] Name Value Range Interpretation Code Description Data Stephanie rce(s) Supporting Document(s) LCOVID-19, CORDELL NEGATIVE [facility] This lab was ordered by [facility] and reported by [facility]. ID Date Data Source [id number] 04/19/2021 02:30:00 AM EDT [facility] Name Value Range Interpretation Code Description Data Stephanie rce(s) Supporting Document(s) COVID-19, CORDELL NEGATIVE NEGATIVE [facility] Methodology: Isothermal Nucleic Acid Amp lification for [...] Emergency Use Authorization. ID Date Data Source [id number] 04/19/2021 02:55:00 PM EDT [facility] Physician DocumentationClLeticia edical CenterName: Yareli DuvallAge: 20 yrsSex: FemaleDOB: 2000MRN: [id number] Date: 04/19/2021Time: 01:17Account#: [id number] MD: NONE, - Per PatientED Physician Chetan Grover Summary:04/19/21 14:31Discharge OrderedLocation: Home Self CareafProblem: an ongoing problemafSymptoms: are unchangedafCondition: StableafDiagnosis- Bipolar disorder, unspecifiedafFollowup:af- With: Private Physician- When: 1 week- Reason: Recheck today's complaintsDischarge Instructions:- BIPOLAR DISORDERaf- Discharge Summary Ukoqlyd99Zfieu:- Medication Reconciliationaf- Medication Reconciliation Form - 2nd CopyafHPI:04/907:14 This 20 yrs old White Female presents to ER via Police with complaints ofPsych Problem.br07:14 Obese 20-year-old female brought by PD for evaluation of self- harm.Please call to seen brpatient where she was seen slamming her head against the wall after attemptingto cutwrists w wire from [employer] mask. [facility]Historical:- Allergies: Haldol; Risperdal;- Home Meds:1. aripiprazole 10 mg oral tablet 1 tab daily2. aripiprazole 400 mg intramuscular suspension,extended release syringe 400 oqszfng92 days3. ibuprofen 400 mg Oral tablet 1 [...] Temp 98.3; Pulse Ox 98% on R/A; Ptxmwc437.33 kg; jw7Ayfotj 5 ft. 6 in. ; Pain 0/10;14:44 BP 119 / 88; Pulse 88; Resp 16; Temp 98; Pulse Ox 98% ;kk201:24 Body Mass Index 37.12 (104.33 kg, 167.64 cm)kk301:24 Pain Scale: Ldijobf5BNL:01:33 Patient medically screened.br07:17 Data reviewed: vital signs, [...] name: ETOH; Complete Time: 03::37 Order name: Qmxaphqcl764/0901:37 Order name: Salicylate Level; Complete Time: 03::37 Order name: Triage - Drug Screen; Complete Time: 03::37 Order name: UA; Complete Time: 03::37 Order name: Urine HCG Qualitative; Complete Time: 03::37 Order name: Diet - Mental Health Tray (call dietary):37 Order name: Belongings Jnixub449:37 Order name: Document Weight and Height for QGNur859/0901:37 Order name: Mental Health Zxooupooczzk869/0901:37 Order name: Mental Health Level 7si806:37 Order name: VS q bvqomwj092/0903:17 Order name: Consult Orders-Psychosocial, Sub Prior (.PSA)brDispensed Medications:03:37 Drug: B52 IM - (LORazepam 2 mg, diphenhydrAMINE 50 mg, HaloperidolLactate 5 mg) Route: cm4IM; Site: left vastus lateralis;Signatures:Dispatcher [employer] Anshul Loving MD MD afRoberts, Brandon, MD MD brKelly, Krista RN RN zv5WvpofrzbwWendy quintana RN RN cm4 Name Value Range Interpretation Code Description Data Stephanie rce(s) Supporting Document(s) ID Date Data Source [id number] 04/19/2021 02:55:00 PM EDT [facility] Nurse's NotesClaxMaria [facility] terName: Yareli DuvallAge: 20 yrsSex: FemaleDOB: 2000MRN: [id number] Date: 04/19/2021Time: 01:17Account#: [id number] 1Private MD: NONE, - Per PatientDiagnosis: Bipolar disorder, unspecifiedPresentation:04/901:18 Presenting complaint: Patient states: "Well, the molder machine came because I wasbanging my kx7zmvj on the wall and I wasn't being suicidal.". Coronavirus Screening: Have youbeendiagnosed with COVID-19 in the past 30 days? no Are you currently on quarantinebyPublic Health? no Flu-like symptoms reported in the last 14 days: no. Have youhadclose contact with confirmed or suspected COVID-19 case? no Do you live in asettingwhere a large of amount of people live, such as care home, family care,fci, etc?yes. Have you traveled to a location with widespread or ongoing COVID-19communityspread or outside of [facility]? no Have you traveled internationally or hadcontact withsomeone that has traveled and has been ill in the past 3 weeks? no Have youreceivedthe COVID vaccine? Yes Sophia unknown. Communication Speaks Indian? Yes, ispreferredlanguage. Language Line Services needed? No Are TDD needed? No. Best learningmethod:discussion. Learning barriers: none identified.01:18 Acuity: Triage 8ma263:18 Method Of Arrival: Zktoouds095:19 Acuity Assignment: Triage 5es271:21 International Travel Fever No. Communicable Disease Screen: Negative forfever>/= 100 wp7dwybcto Fahrenheit. Communicable disease screen is negative. (-) rash orunusual skinlesion (-) travel/contact with traveler (-) respiratory symptoms.Triage Assessment:01:24 General: Appears unkempt, well nourished, Behavior is appropriate forage, cooperative, du6Yecyvh fever, chills. Sepsis Screening: (1)Signs/symptoms infection Sepsis isnotsuspected. Pain: Denies pain. PSS-3 Now I'm going to ask you some questionsthat we askeveryone treated here, no matter what problem they are here for. [facility] is [facility] and it helps us to [...] 400 mg intramuscular suspension,extended release syringe 400 usyklhz27 days3. ibuprofen 400 mg Oral tablet 1 [...] threats or abuse. Denies injuries from another.Nutritional qr1jnllxafxv: No deficits noted. Offer of HIV testing: patient was previouslyofferedscreening. Fall Risk None identified.Assessment:01:35 Reassessment: No changes from previously documented assessment.kk301:54 Reassessment: Patient refused to have labs drawn, explained mental healthprocess and kk3the steps necessary to be medically cleared, patient still refused, PSA and EDprovidermade aware.02:22 Reassessment: patient starts refusing blood work and screaming at staff.OPD called to rp7mgcjscm, patient is known to be aggressive. Patient gets aggitated when thepolice gethere and continues to scream at staff, code orange called. Patient agrees toget bloodwork done. .03:38 Reassessment: patient tries to elope twice, walking out to the ramp.Patient was as3xviwbofleo and followed out to the ramp, patient did come back inside bothtimes.Patient begins hitting her head off the wall and not cooperating with staff andyelling/ calling staff vulgar names. Patient has no self control at this timescreamingin the ER. Vanesa ramos called..03:52 Reassessment: Patient placed in 4 point restraints at 0342 due tocontinued lack of gv5qxgp control.04:33 Reassessment: patient released from restraints at 0433.cm404:46 Reassessment: Patient appears in no apparent distress at this time.cm407:30 Reassessment: Patient appears in no apparent distress at this time. Nochanges from pz9hszictqjbh documented assessment. Patient sleeping.09:57 Reassessment: Patient appears in no apparent distress at this time. Nochanges from lr6yeuluvxqlf documented assessment. Patient sleeping. .Psychosocial:07:26 SAFE Act [...] facilities last being three days ago at [facility]. Ptreportsthat she has been and eating and sleeping well. Pt [facility] Pt states that she does not feelshe needsinpatient services at this time. Pt reports she feels she would be safe to bedischarged home at this time back to [facility]. Delusions are denied, Hallucinationsaredenied. Patient's mood is depressed.12:00 Patient reports history of anxiety, Bipolar Disorder, Depression, self-mutilation, uw74Pxwbmb Health Admissions: multiple last yash ng at [facility] two days ago CurrentOutpatient Mental Health Services: [facility]iatrist / [facility].LivingEnvironment: Family / Home Support: good The patient currently lives in a TLSapartment.12:04 Patient presents to Emergency Department with the following symptomswithin the past 2 to68lpmxe: Anger, anxiety, depressed mood, poor concentration, poor impulsecontrol,suicidal ideation with no plan.12:06 Objective: Patient is cooperative, Speech is normal. Affect isappropriate. Mental ok31gmseor exam: Patients appearance is appropriate, Patient's behavior [...] patient's status at 13:33, ED MDnotified of ch32qdbugppv status at 13:33. Disposition: Medically cleared for disposition by [facility].Psychiatric Consult is performed by phone with Dr Strauss The patient has asafedestination which is Pt will be discharged to [facility] per Dr. Canela. Pt cancontract forsafety and denies SI/HI. Pt will follow up with outpatient next week. Pt willtakemedications as prescribed. Pt provided contact information for JAN Delilah. Ptwill come to the ED if problems continue or worsen. DSM-V DX [place] I diagnosis:BipolarD/O, Unspecified [place] II diagnosis: Deferred [place] III diagnosis: None. [place] IVdiagnosis: poor impulse control. The patient is not a dining service worker ormilitarydependent. [place] Suicide Severity Rating Scale: Suicidal Ideation Rating 0;Intensity of Ideations Rating 0; Suici reji Behavior Rating 0.Psych:01:28 Subjective: Patient's mood is euphoric, Delusions are denied,Hallucinations are denied pd8Accewh thoughts of suicide. Denies suicidal plan. Objective: Patient iscooperative,Speech is normal, Affect is appropriate, Patient has mutilated themselves byscratchingself using a metal wire on right and left forearm. Interventions: Removedpersonalitems and placed in bag. Patient placed in hospital gown. Searched person fordangerousitems. Urine collected and sent for urine drug test. Belonging list filled out.Observation Level Level 3 Sitter needed. Provider notified. Zeeshan Grover MDChargenurse notified. Wendy Luis Level 3 order placed.Vital Signs:01:24 BP 132 / 107; Pulse 91; Resp 20; Temp 98.3; Pulse Ox 98% on R/A; Gwzaxv741.33 kg; jo1Hzomee 5 ft. 6 in. ; Pain 0/10;14:44 BP 119 / 88; Pulse 88; Resp 16; Temp 98; Pulse Ox 98% ;kk201:24 Body Mass Index 37.12 (104.33 kg, 167.64 cm)kk301:24 Pain Scale: Xgulxgd1UM Course:01:17 Patient arrived in ED.kk301:18 NONE, - Per Patient is Private Physician.kk301:19 Triage completed.kk301:30 Ratna Barbosa RN is Primary Nurse.kk301:33 Zeeshan Grover MD is Attending Physician.br01:35 Urine collected. Clean catch specimen. Nasal Swab Collected by Nurse.kk301:40 Patient has correct armband on for positive identification. Placed ingown. Bed in low ek8dlbeztlh. Call light in reach. Side rails up [...] has no functional deficits.14:55 Patient left the ED.zm8Cycrfizhun:Anshul Strauss MD MD afKnight, Zakia, RN RN ii7Jory, Zeeshan Kennedy MD MD brKelly, Krista, RN RN ue6Zmiquzqy, Usha carrollcd7TkkinvltqWendy quintana, RN RN pb0Xswl, Olivia, RN RN sw2 Name Value Range Interpretation Code Description Data Stephanie rce(s) Supporting Document(s) ID Date Data Source [id number] 04/17/2021 10:05:00 AM EDT [facility] Name Value Range Interpretation Code Description Data Stephanie rce(s) Supporting Document(s) Respiratory specimen severe acute respir atory syndrome coronavirus 2 (SARS-CoV-2) RNA Negative (qualifier value) [facility] This lab was ordered by [facility] and reported by . ID Date Data Source [id number] 04/17/2021 10:35:00 AM EDT [facility] Name Value Range Interpretation Code Description Data Stephanie rce(s) Supporting Document(s) SARS-CoV-2 RNA Negative Normal (applies to non-numeric r esults) [facility] Negative results should be treated as [...] Certificate of Accreditation. Factsheets for healthcare providers: https://www.fda.gov/media/818168/download Factsheets for patients: https://www.fda.gov/media/915806/download The ID NOW Instrument is a rapid molecular in vitro diagnostic test utilizing an isothermal nucleic acid amplification technology intended for the qualitative detection of nucleic acid from the SARS-CoV-2 viral RNA. THIS IS A STATE REPORTABLE COMMUNICABLE DISEASE. Manual entry verified by Megan Murphy 04/17/21 1034 ID Date Data Source [id number] 04/17/2021 10:56:00 AM EDT [facility] Name Value Range Interpretation Code Description Data Stephanie rce(s) Supporting Document(s) HCG,Ur Negative Normal (applies to non-numeric results) [facility] ID Date Data Source [id number] 04/17/2021 02:47:00 AM EDT [facility] Name Value Range Interpretation Code Description Data Stephanie rce(s) Supporting Document(s) UDS Benzodiazepines Screen Negative Normal (applies to n on-numeric results) [facility] UDS Cocaine Screen Negative Normal (applies to non-numer ic results) [facility] UDS Ampetamine Screen Negative Normal (applies to non-nu meric results) [facility] UDS Cannabinoids Screen Negative Normal (applies to non- numeric results) [facility] UDS Opiates Screen Negative Normal (applies to non-numer ic results) [facility] UDS Barbiturates Screen Negative Normal (applies to non- numeric results) [facility] Threshold Levels Benzodiazepine 200 ng/mL Cocaine 300 ng/mL Amphetamines 1000 ng/mL Cannabinoids (THC) 50 ng/mL Opiates 300 ng/mL Barbiturates 200 ng/mL All positive findings are presumptive and unconfirmed. Confirmation of positive results are performed only at request of provider. Unconfirmed results must not be used for non-medical purposes (i.e. preemployment and legal purposes) ID Date Data Source [id number] 04/17/2021 02:46:00 AM EDT [facility] Collected By: Nurse Initials: JT Time Collected: 214 Collected By: Nurse Initials: JT Time Collected: 214 Name Value Range Interpretation Code Description Data Stephanie rce(s) Supporting Document(s) Color,Urine Colorl-Dk Y Normal (applies to non-numeric res ults) [facility] Clarity,Urine Clear Normal (applies to non-numeric re sults) [facility] Specific [place],Urine 1.005-1.030 [facility] pH,Urine 5.0-8.0 Normal (applies to non-numeric resul ts) [facility] Protein,Urine Negative Normal (applies to non-numeric re sults) [facility] Glucose,Urine Negative Normal (applies to non-numeric re sults) [facility] Ketones,Urine Negative Normal (applies to non-numeric re sults) [facility] Blood,Urine Negative [facility] Bilirubin,Urine Negative [facility] pital Urobilinogen,Urine 0.2-1.0 Normal (applies to non-numer ic results) [facility] Leukocyte Esterase,Urine Negative [facility] Nitrite,Urine Negative Normal (applies to non-numeric re sults) [facility] ID Date Data Source [id number] [facility] By: Nurse Initials: JT Time Collected: 214 Collected By: Nurse Initials: JT Time Collected: 214 Name Value Range Interpretation Code Description Data Stephanie rce(s) Supporting Document(s) RBC,Urine None Seen [facility] WBC,Urine None Seen [facility] Casts,Urine None Seen Normal (applies to non-numeric resu lts) [facility] Squamous Cells,Urine None Seen [facility] Amorphous Sediment,Urine None Seen [facility] Bacteria,Urine None Seen [facility] ital ID Date Data Source [id number] 04/17/2021 02:29:00 AM EDT [facility] Name Value Range Interpretation Code Description Data Stephanie rce(s) Supporting Document(s) Sodium 139 mmol/L 136-145 Normal (applies to non-numeric resul ts) [facility] Potassium 3.5-5.1 Below low normal [facility] spital Chloride 102 mmol/L 98-107 Normal (applies to non-numeric resul ts) [facility] Carbon Dioxide CO2 21-32 Normal (applies to non-numer ic results) [facility] Anion Gap 5.0-16.0 Normal (applies to non-numeric resul ts) [facility] BUN 12 mg/dL 7-18 Normal (applies to non-numeric results) [facility] Creatinine,Serum 0.7-1.2 Normal (applies to non-numeric results) [facility] GFR >60 Normal (applies to non-numeric results) [facility] Glucose Level 99 mg/dL 60-99 Normal (applies to non-numeric re sults) [facility] Reference range is only applicable when patient is fasting Note the following drug interference: Sulfasalazine Sulfapyridine Can see falsely depressed Can see falsely elevated result with up to 17% results with up to 11% decrease in measurement increase in measurement Recommend patients be collected for this test prior to administration of either drug. Calcium 8.5-10.1 Normal (applies to non-numeric resul ts) [facility] Bilirubin,Total 0.1-1.9 Normal (applies to non-numeric results) [facility] SGOT(AST) 26 U/L 15-37 Normal (applies to non-numeric resul ts) [facility] Note the following drug interference: Sulfasalazine Sulfapyridine Can see falsely depressed Can see falsely elevated result with up to 10% results with up to 10% decrease in measurement increase in measurement Recommend patients be collected for this test prior to administration of either drug. SGPT(ALT) 45 U/L 12-78 Normal (applies to non-numeric resul ts) [facility] Note the following drug interference: Sulfasalazine Sulfapyridine Can see falsely depressed Can see falsely elevated result with up to 29% results with up to 10% decrease in measurement increase in measurement Recommend patients be collected for this test prior to administration of either drug. Alkaline Phosphatase 133 U/L 38-126 Above high normal [facility] can increase Alkaline Phosp le vels up to 2 times the normal adult value. Normal values for children and adolescents are 2 to 3 times the normal adult value. Total Protein 6.0-8.2 Normal (applies to non-numeric re sults) [facility] Albumin Level 3.4-5.0 Normal (applies to non-numeric re sults) [facility] ID Date Data Source [id number] 04/17/2021 02:29:00 AM EDT [facility] Name Value Range Interpretation Code Description Data Stephanie rce(s) Supporting Document(s) Salicylate 2.8-20.0 Below low normal [facility] ID Date Data Source [id number] 04/17/2021 02:29:00 AM EDT [facility] Name Value Range Interpretation Code Description Data Stephanie rce(s) Supporting Document(s) Troponin I 0.000-0.056 Normal (applies to non-numeric resu lts) [facility] ID Date Data Source [id number] 04/17/2021 02:29:00 AM EDT [facility] Name Value Range Interpretation Code Description Data Stephanie rce(s) Supporting Document(s) Acetaminophen 10.0-30.0 Below low normal [facility] ID Date Data Source [id number] 04/17/2021 02:29:00 AM EDT [facility] Name Value Range Interpretation Code Description Data Stephanie rce(s) Supporting Document(s) Magnesium 1.8-2.4 Normal (applies to non-numeric resul ts) [facility] ID Date Data Source [id number] 04/17/2021 02:28:00 AM EDT [facility] Name Value Range Interpretation Code Description Data Stephanie rce(s) Supporting Document(s) Ethanol Less than 10.0 Normal (applies to non-numeric r esults) [facility] ID Date Data Source [id number] 04/17/2021 02:07:00 AM EDT [facility] Name Value Range Interpretation Code Description Data Stephanie rce(s) Supporting Document(s) White Blood Count 3.5-10.5 Normal (applies to non-numeri c results) [facility] Red Blood Count 3.90-5.00 Normal (applies to non-numeric results) [facility] Hemoglobin 12.0-15.5 Normal (applies to non-numeric resul ts) [facility] Hematocrit 34.9-44.5 Normal (applies to non-numeric resul ts) [facility] Mean Corpuscular Volume 81.2-95.1 Normal (applies to non- numeric results) [facility] Mean Corpuscular Hgb 25.6-32.2 Normal (applies to non-num deena results) [facility] Mean Corpuscular Hgb Conc 32.0-36.0 Normal (applies to no n-numeric results) [facility] Red Cell Distribution Width 11.9-15.5 Normal (appli es to non-numeric results) [facility] Platelet Count 285 x10 3/uL 150-450 Normal (applies to non-numeric results) [facility] Mean Platelet Volume 9.4-12.4 Normal (applies to non-num deena results) [facility] Neutrophils% (Auto) 31.0-71.0 Normal (applies to non-nume frank results) [facility] Lymphocytes% (Auto) 20.0-55.0 Normal (applies to non-nume frank results) [facility] Monocytes% (Auto) 4.0-12.0 Normal (applies to non-numeri c results) [facility] Eosinophils% (Auto) 1.0-8.0 Normal (applies to non-nume frank results) [facility] Basophils% (Auto) 0.0-2.0 Normal (applies to non-numeri c results) [facility] Immature Granulocytes% (Auto) 0.0-2.0 Normal (alexander lies to non-numeric results) [facility] Neutrophils# (Auto) 1.50-6.20 Above high normal [facility] Lymphocytes# (Auto) 1.20-4.00 Normal (applies to non-nume frank results) [facility] Monocytes# (Auto) 0.00-0.90 Normal (applies to non-numeri c results) [facility] Eosinophils# (Auto) 0.00-0.50 Normal (applies to non-nume frank results) [facility] Basophils# (Auto) 0.00-0.20 Normal (applies to non-numeri c results) [facility] Immature Granulocytes# (Auto) 0.00-7.00 No rmal (applies to non-numeric results) [facility] ID Date Data Source [id number] 04/14/2021 03:02:00 PM EDT [address] CONSULTPATIENT NAME: YARELI HATCH MR#: [id number] PHYSICIAN:AUTHOR: Surendra SMITH,P. DATE: RM#: ERPATIENT : 00HistoryAdditional NotesYareli [...] her suicidal.So, then she was taken to [facility] in [facility]. While she was in the [facility],she claims she escaped from the hospital at which point a pickup order wasissued then she was brought to [facility] yesterday. I saw her today int ER.In my evaluation today which I conducted with Gloria, wastewater treatment plant instructor and2 students from [employer] I found her to be not hostile, [...] at 1511DATE SIGNED: 04/14/21 Electronically SignedTIME SIGNED: [address] MD Name Value Range Interpretation Code Description Data Stephanie rce(s) Supporting Document(s) ID Date Data Source [id number] 04/13/2021 10:06:00 PM EDT [facility] Name Value Range Interpretation Code Description Data Stephanie rce(s) Supporting Document(s) WBC 11.79 x10E3/uL 4.0-10.5 [facility] RBC 4.27 x10E6/uL 4.20-5.40 [facility] Hemoglobin 12.5 g/dL 12.0-16.0 [facility] Hematocrit 37.7 % 37.0-47.0 [facility] MCV 88.3 fL 81.0-99.0 [facility] MCH 29.3 pg 27.0-31.0 [facility] MCHC 33.2 g/dL 32.7-35.6 [facility] RDW 12.4 % 11.5-14.0 [facility] Platelet count 262 x10E3/uL 150-450 N [facility] ital MPV 10.3 fl 6.9-9.5 [facility] Neutrophils 75.6 % 34-64 [facility] Lymphocytes 17.2 % 25-45 [facility] Monocytes 5.9 % 1.7-10.6 [facility] Eosinophils 0.6 % 0.4-7.0 [facility] Basophils 0.3 % 0.1-2.0 [facility] Imm. Gran. 0.4 % 0.1-2.0 [facility] Abs. Neutro. 8.92 x10E3/uL 1.2-7.6 [facility] Abs. Lymph. 2.03 x10E3/uL 1.0-3.5 [facility] Abs. Levy. 0.69 x10E3/uL 0.1-1.0 [facility] Abs. Eosin. 0.07 x10E3/uL 0.1-0.7 [facility] Abs. Baso. 0.03 x10E3/uL 0.0-0.1 [facility] Abs. Imm. Gran. 0.05 x10E3/uL 0.0-0.1 [facility] spital ANRBC% 0 % 0 [facility] ID Date Data Source [id number] 04/13/2021 09:38:00 PM EDT [facility] Name Value Range Interpretation Code Description Data Stephanie rce(s) Supporting Document(s) GLU 95 mg/dL 70-110 [facility] Patients taking Sulfasalazine may have f alsely depressedGlucose levels. Patients taking Sulfapyridine may havefalsely elevated Glucose levels. Patients should be drawnfor Glucose before the initial administration of eitherdrug. BUN 14 mg/dL 7-23 [facility] CRE 0.672 mg/dL 0.500-1.300 [facility] GFR > 60 mL/min [facility] CHLORIDE 110 mmol/L 99-110 [facility] NA 141 mmol/L 136-147 [facility] POTASSIUM 4.5 mmol/L 3.5-5.1 [facility] TCO2 23 mmol/L 20-33 [facility] ANION GAP 12.5 10.0-20.0 [facility] CA 8.6 mg/dL 8.3-10.7 [facility] ALKALINE PHOS 125 U/L 45-117 [facility] TP 8.0 g/dL 6.0-7.8 [facility] ALB 3.6 g/dL 3.5-5.0 [facility] ESRD Dialysis patient Albumin reference range: 2.9-4.4 g/dL GL 4.4 g/dL 2.3-3.5 H [facility] A/G 0.8 1.0-2.5 [facility] T. BILIRUBIN 0.3 mg/dL 0.1-1.1 [facility] The [employer] [place] Total Bilirubin is n ot recommended forpatients undergoing treatment with eltrombopag (Promacta)due to the potential for falsely elevated results. ALTI 51 U/L 6-54 [facility] Patients taking Sulfasalazine and/or Sul fapyridine may havefalsely depressed ALT levels. Patients should be drawn forALT before the initial administration of either drug. AST 32 U/L 6-38 [facility] Patients taking Sulfasalazine and/or Sul fapyridine may havefalsely depressed AST levels. Patients should be drawn forAST before the initial administration of either drug. ID Date Data Source [id number] 04/13/2021 09:38:00 PM EDT [facility] Name Value Range Interpretation Code Description Data Stephanie rce(s) Supporting Document(s) SALICYLATE < 1.7 mg/dL 0.0-20.0 [facility] ID Date Data Source [id number] 04/13/2021 09:38:00 PM EDT [facility] Name Value Range Interpretation Code Description Data Stephanie rce(s) Supporting Document(s) ACETAMINOPHEN < 2.0 ug/mL 0-30 [facility] Date Data Source [id number] 04/13/2021 09:38:00 PM EDT [facility] Name Value Range Interpretation Code Description Data Stephanie rce(s) Supporting Document(s) ETOH 0.007 g/dL NONE DETECTED [facility] ID Date Data Source [id number] 04/13/2021 08:47:00 PM EDT [facility] Name Value Range Interpretation Code Description Data Stephanie rce(s) Supporting Document(s) LCOVID-19, CORDELL NEGATIVE [facility] This lab was ordered by [facility] and reported by [facility]. ID Date Data Source [id number] 04/13/2021 09:21:00 PM EDT [facility] Name Value Range Interpretation Code Description Data Stephanie rce(s) Supporting Document(s) COVID-19, CORDELL NEGATIVE NEGATIVE [facility] Methodology: Isothermal Nucleic Acid Amp lification for [...] Emergency Use Authorization. ID Date Data Source [id number] 04/13/2021 09:48:00 PM EDT [facility] Name Value Range Interpretation Code Description Data Stephanie rce(s) Supporting Document(s) PCP VISTA NEG NEGATIVE [facility] MINIMUM LEVEL OF DETECTION IS 25 ng/ml BENZODIAZEPINES NEG NEGATIVE [facility] al MINIMUM LEVEL OF DETECTION IS 200 ng/ml COCAINE VISTA NEG NEGATIVE [facility] MINIMUM LEVEL OF DETECTION IS 300 ng/ml AMPHETAMINES NEG NEGATIVE [facility] al MINIMUM LEVEL OF DETECTION IS 1000 ng/ml BARBITURATES NEG NEGATIVE [facility] al CUTOFF CONCENTRATION IS 200 ng/ml CANNABINOIDS NEG NEGATIVE [facility] al CUTOFF CONCENTRATION IS 50 ng/ml METHADONE VISTA NEG NEGATIVE [facility] al MINIMUM LEVEL OF DETECTION IS 300 ng/ml OPIATE VISTA NEG NEGATIVE [facility] MINIMUM DETECTION LEVEL IS 300 ng/ml ID Date Data Source [id number] 04/13/2021 09:38:00 PM EDT [facility] Name Value Range Interpretation Code Description Data Stephanie rce(s) Supporting Document(s) URINE COLOR Yellow [facility] UAPR Turbid [facility] UGLU Negative NEGATIVE [facility] URINE BILIRUBIN Negative NEGATIVE [facility] al UKET Negative NEGATIVE [facility] USG 1.017 1.010-1.025 [facility] UBLO Negative NEGATIVE [facility] UpH 7.5 5.0-8.0 [facility] UPRO Negative Negative [facility] UUB 1.0 mg/dL 0.2-1.0 [facility] UNIT Negative Negative [facility] ULEU Trace Negative [facility] ID Date Data Source [id number] 04/13/2021 09:38:00 PM EDT [facility] Name Value Range Interpretation Code Description Data Stephanie rce(s) Supporting Document(s) URINE RBC 0-2 RBCs/HPF NONE SEEN [facility] URINE WBC 0-2 WBCs/HPF NONE SEEN [facility] URINE BACTERIA Few NONE SEEN [facility] URINE EPI. Many NONE SEEN [facility] URINE CRYSTAL MANY AMORPHOUS NONE SEEN [facility] pital ID Date Data Source [id number] 04/13/2021 09:38:00 PM EDT [facility] Name Value Range Interpretation Code Description Data Stephanie rce(s) Supporting Document(s) HCG QUAL URINE Negative Negative [facility] l ID Date Data Source [id number] 04/14/2021 04:43:00 PM EDT [facility] Physician DocumentationClaxlexy-Cristina Arin edical CenterName: Yareli Mejiage: 20 yrsSex: FemaleDOB: 2000MRN: [id number] Date: 04/13/2021Time: 20:28Account#: [id number] 1Private MD: NONE, - Per PatientED Physician Santiago RajanDisposition Summary:04/14/21 16:06Discharge OrderedLocation: Home Self Zfgies7Ligsina: kywowkrpq0Lycixrfo: are drhomnybxgx4Myvkaaxmr: Krzsbxdd8Wgohegobw- Major depressive disorder, recurrent, ztzgcbeymbzsz7Alouqbwf:rf2- With: Private Physician- When: 2 - 3 days- Reason: Recheck today's complaints, Continuance of careDischarge Instructions:- Discharge Summary Theqqzl60- JQQUHAQQGCww8Qxorm:- Medication Reconciliationrf2- Medication Reconciliation Form - [address] [place], [place] [address]HPI:04/320:42 This 20 yrs old White Female presents to ER via Police with complaints ofPsych Problem.th420:42 Associated signs and symptoms: Pertinent negatives: abdominal pain, chestpain, fever, wq1fbcloiol, nausea, shortness of breath, vomiting. Patient is [facility]. Patient is well-known to the ER. She has been seenmany timesin the past for the same. She was last here on April 09 and was admitted atthattime. Patient reports that [facility] ideation. She [...] 400 mg intramuscular suspension,extended release syringe 400 xvwsocs66 days3. ibuprofen 400 mg Oral tablet 1 [...] Eyes: Negative for acute changes.ENT: Negative for eg7ggbvr discharge, rhinorrhea, sinus congestion. Neck: Negative for [...] 53.26 (149.69 kg, 167.64 cm)jw523:48 Pain Scale: Fcsocue184/0411:45 Pain Scale: Pjgnhcq409:43 Pain Scale: AdulttlmMDM:04/320:34 Patient medically screened.th410/0406:41 Data reviewed: vital signs, nurses notes, lab test result(s). ED course:Patient wy0emkjznau stable in the ER. Patient here for mental health evaluation as above.Case isendorsed to Dr. Rajan at change of shift pending PSA evaluation disposition.Patient ismedically clear and has been cooperative..07:32 Data reviewed: lab test result(s), CBC, drug level(s), acetaminophen,alcohol, rd3zasebwbysb, electrolytes, hepatic panel, urinalysis, urine drug screen,COVID-19.Transition of care: Care assumed from Nils Argueta MD.16:06 ED course: Patient being recommended for discharge home by Dr. Patten with adiagnosis of su8eskbgrkmps.04/320:39 Order name: Acetaminophen Level; Complete Time: 21:49hz628/0320:39 Order name: CBC with diff; Complete Time: 07:87qr037/0407:33 Interpretation: Abnormal: WBC 11.79; Mild leukocytosis.rf0:39 Order name: CMP; Complete Time: 21:62zu4930:39 Order name: COVID-19 PROFILE+LAB; Complete Time: 21:71lw462:39 Order name: ETOH; Complete Time: 21:55de419:39 Order name: Glucose; Complete Time: 07:41dq586/0407:32 Interpretation: Within normal limits.rf0:39 Order name: Salicylate Level; Complete Time: ::39 Order name: Triage - Drug Screen; Complete Time: ::39 Order name: UA; Complete Time: 21:33nz3160:39 Order name: Urine HCG Qualitative; Complete Time: :47ix932:39 Order name: Diet - Mental Health Tray (call dietary); Complete Time:23:49 0:39 Order name: Belongings List; Complete Time: 05:15yh530:39 Order name: Document Weight and Height for BMI; Complete Time: 23:67xx4730:39 Order name: Mental Health Evaluation; Complete Time: 23:09kd1860:39 Order name: Mental Health Level 3; Complete Time: 23:0:39 Order name: VS q shift; Complete Time: 23:1:49 Order name: Medically Cleared for Eval by-Psychosocial, Sub Prior (.PSA)lp5Jbmutjttq Medications:04/322:16 Drug: Ibuprofen 600 mg [ibuprofen 600 mg tablet (1 tabs)] Route: PO;kk223:48 Follow up: Pain 09/18 Kjxleil384/0410:16 Drug: Propranolol 10 mg Route: PO;ef110:46 Follow up: Response: No adverse jrwpzixawo457:16 Drug: sertraline 50 mg Route: PO;ef110:46 Follow up: Response: No adverse gpxilxamgy333:16 Drug: Topiramate 75 mg Route: PO;ef110:45 Follow up: Response: No adverse vdhkpizkgv601:16 Drug: Loratadine 10 mg Route: PO;ef110:45 Follow up: Response: No adverse kixthencok190:17 Drug: ARIPiprazole 10 mg Route: PO;ef110:46 Follow up: Response: No adverse kbvittqytr559:45 Drug: Acetaminophen Tablet 650 mg Route: PO;ef111:45 Follow up: Pain 0/10 Jgubrwn9Xcbaetvthw:Disp Zakia Buchanan RN RN pb6YhukwxyNils bnasal MD MD ay5SiybvFortunato RN RN qf1CvbnszoeAmi dang RN RN ze5Vjlxd, MD SARAH Henderson rf2 Name Value Range Interpretation Code Description Data Stephanie rce(s) Supporting Document(s) ID Date Data Source [id number] 04/14/2021 04:43:00 PM EDT [facility] Nurse's NotesClaxMaria [facility] terName: Yareli DuvallAge: 20 yrsSex: FemaleDOB: 2000MRN: [id number] Date: 04/13/2021Time: 20:28Account#: [id number] 1Private MD: NONE, - Per PatientDiagnosis: Major depressive disorder, recurrent, unspecifiedPresentation:04/320:29 Presenting complaint: Patient states: Was at [facility]. gy7Hykdimt to this ED by [facility]. Patient reports that she escaped from the [facility]. International Travel Fever No. Coronavirus Screening: Have you beendiagnosed with COVID-19 in the past 30 days? no Are you currently on [facility]? no Flu-like symptoms reported in the last 14 days: no. Have youhadclose contact with confirmed or suspected COVID-19 case? no Do you live in asettingwhere a large of amount of people live, such as care home, family care,fci, etc?yes. Have you traveled to a location with widespread or ongoing COVID-19communityspread or outside of [facility]? no Have you traveled internationally or hadcontact withsomeone that has traveled and has been ill in the past 3 weeks? no Have youreceivedthe COVID vaccine? Yes Sophia x 1 dose. Communicable Disease Screen: Negativeforfever>/= 100 degrees Fahrenheit. Communicable disease screen is negative. (-)rash orunusual skin lesion (-) travel/contact with traveler (-) respiratory symptoms.Communication Speaks Indian? Yes, is preferred language.20:29 Acuity: Triage 2bs902:29 Method Of Arrival: Doscxrca148:30 Acuity Assignment: Triage 2yw7Hbpvqz Assessment:20:31 General: Appears in no apparent distress, [...] 400 mg intramuscular suspension,extended release syringe 400 hpggxzu97 days3. ibuprofen 400 mg Oral tablet 1 [...] threats or abuse. Denies injuries from another.Nutritional ay8tiwqnazla: No deficits noted. Offer of HIV testing: [...] appears in no apparent distress at this time.zm6Qlnjwmqmnfmv:04/322:01 Mental health consult is initiated at 22:01.sm822:12 SAFE Act Report Not Completed. Intervention: Observation Level 3.Referral Information: nv3Ixvcrvsfzr referral is generated by a police agency: [employer]. The patient wasreferred forevaluation because suicidal ideations.22:23 Subjective: The patients chief complaint is [place] cz[place]. As PSA was going into her room pt was tapping her head off the wall.Pt wasdischarged from our unit on Wednesday (04/11), she then went to [facility] late Wednesday night. Pt had walked out of [facility] and made [facility]back [facility] and [facility] [...] has a long history of mental healthtreatment [facility] facilities. She has a history of Anxiety, Bipolar, Depression, andBPD. Pt hasa history of reported suicide attempts by overdosing. Pt denies hallucinations.Pt doesnot present with any delusional thoughts. Delusions are denied, Hallucinationsaredenied. Patient's mood is depressed, Having thoughts of suicide. Deniessuicidal plan.homicide: denies plan. Homicidal thoughts directed towards mother.22:30 Narrative PSA spoke to Dulce at [facility] ([phone]). She states that itis "the same sm8old thing" as to why the pt is in the ED. She states that the pt was dischargedfromour unit then went to [facility] for suicidal ideations. She states that thept madeit back to them in scrubs and stated that she asked [facility] what wouldhappen if shewalked out which they told her that they would have to call the police. Policethenshowed up at [facility] and brought her to us.22:33 Patient reports history of anxiety, Bipolar Disorder, Depression, self-mutilation, hj2jjdfhzz attempt: pt reports multiple by overdosing Mental Health Admissions:multipletimes at multiple facilities Current Outpatient Mental Health Services:[facility]iat[facility] [place]. Living Environment: Family / HomeSupport: [facility]The patient currently lives in a [facility] apartment. The patient is single. Detox /RehabAdmissions: None. Current Outpt Alcohol or Substance Abuse Services: None.22:34 Patient presents to Emergency Department with the following symptomswithin the past 2 pw5wqfvx: suicidal ideation with no plan. Patient presents [...] patient status is not currently needed orappropriate. ud2Relpggskkwhk: Psych MD informed of patient's status at 22:30, ED MD notified ofpatients status at 22:46. Disposition: Medically cleared for disposition by Meet.Psychiatric Consult is performed by phone with Dr David Little The patientis to betransferred to bed availability facility. Legal Status: Patient's legal statuswi beDirectory of Community Services: 37. Commitment papers are completed. DSM-VDX [place] Idiagnosis: Depression, Unspecified. Insurance Pre-Certification: Not Required.IMHUAdmission [...] Awaiting referral hospitalacceptance.The patient is not a dining service worker or dependent. [place]elle SuicideSeverityRating Scale: Suicidal Ideation Rating 2; Intensity of Ideations Rating 23;SuicidalBehavior Rating 0.04/416:02 Narrative Pt will be discharged home per Dr. Patten. Pt can [facility] and denies am11SI/HI. Pt will follow up with outpatient services. Pt provided contactinformation forPSA and [employer]. Pt will come to the ED if problems continue or worsen.Psych:04/320:50 Subjective: Delusions are denied, Hallucinations are denied Havingthoughts of suicide. fu1Guahya suicidal plan. Objective: Patient is cooperative, Speech [...] 53.26 (149.69 kg, 167.64 cm)jw523:48 Pain Scale: Shceghr308/0411:45 Pain Scale: Rydmqfd294:43 Pain Scale: AdulttlmED Course:04/320:29 Patient arrived in ED.kk220:29 NONE, - Per Patient is Private Physician.kk220:30 Triage completed.kk220:33 Arm band placed on Patient placed in exam room Patient notified of waittime. kk220:34 Nils Argueta MD is Attending Physician.th420:50 Patient has correct armband on for positive identification. Bed in lowposition. Sitter kk2at bedside.20:50 No Physician ass isted procedures completed.kk223:48 Fortunato Mark, RN is Primary Nurse.jw523:48 Sitter at bedside.jw510/0401:38 Sitter at bedside.jw503:19 Sitter at bedside.jw505:10 Sitter at bedside.jw507:09 Primary Nurse role handed off by Fortunato Mrak, RNtlm07:21 Verbal reassurance given. Pillow given.ef107:32 Attending Physician role handed off by Nils Argueta, CZab613:32 Santiago Rajan MD is Attending Physician.rf208:16 Diet tray given.cn1Xlibynavkxxv Medications:04/322:16 Drug: Ibuprofen 600 mg [ibuprofen 600 mg tablet (1 tabs)] Route: PO;kk223:48 Follow up: Pain 3/10 Zpwkzrw061/0410:16 Drug: Propranolol 10 mg Route: PO;ef110:46 Follow up: Response: No adverse :16 Drug: sertraline 50 mg Route: PO;ef110:46 Follow up: Response: No adverse acovuoksai679:16 Drug: Topiramate 75 mg Route: PO;ef110:45 Follow up: Response: No adverse wtdwqbyhha143:16 Drug: Loratadine 10 mg Route: PO;ef110:45 Follow up: Response: No adverse koyqvexiws053:17 Drug: ARIPiprazole 10 mg Route: PO;ef110:46 Follow up: Response: No adverse hiueaoaqvn778:45 Drug: Acetaminophen Tablet 650 mg Route: PO;ef111:45 Follow up: Pain 0/10 Azsuwqn6Qgeymli:16:06 Discharge ordered by .rf216:43 Condition: stable.tlm16:43 Discharge inst ructions given to patient, Instructed on dischargeinstructions, followup and referral plans. Demonstrated understanding of instructions.16:43 Discharge Assessment: Patient awake, alert and oriented x 3. Nocognitive and/orfunctional deficits noted. Patient verbalized understanding of dispositioninstructions. Patient verbalized understanding of disposition instructions.Patient hasno functional deficits.16:43 Patient left the ED.tlmSignatures:Magaly Gray RN RN tlZakia Brito RN RN eo3JktlogyNils bansal MD MD gt7KjwhhFortunato humphrey RN RN pf2MvlvtmlaAmi dang, RN JOSE LUIS nx1TvdeIna Jack am11Measheaw, Usha oj9PuradSantiago MD MD nx6Jgjdtoaryqi: (The following items were deleted from the chart)04/322:23 22:12 Referral Information: Evaluation referral is generated by a policeagency: [employer]. sm8The patient was r eferred for evaluation because Pt presents to the ED sm822:36 22:33 Patient reports history of anxiety, Bipolar Disorder, Depression,self sm8- mutilation, suicide attempt: pt reports multiple by overdosing Mental HealthAdmissions: multiple times at multiple facilities Current Outpatient MentalHealthServices: sm822:50 22:12 Referral Information: Evaluation referral is generated by a policeagency: [employer]. sm8The patient was referred for evaluation because suicidal ideations sm822:50 22:23 Subjective: The patients chief complaint is Pt presents to the EDby [employer] for og2mlqjfpbw ideations. A s PSA was going into her room pt was tapping her head offthewall. Pt was discharged from our unit on Wednesday (04/11), [facility]. Pt had [facility] out of [facility] back to [facility] where the police picked her up and [...] Name Value Range Interpretation Code Description Data [facility] Supporting Document(s) ID Date Data Source [id number] 04/12/2021 04:52:00 AM EDT [facility] Name Value Range Interpretation Code Description Data Stephanie rce(s) Supporting Document(s) Sodium 138 mmol/L 136-145 Normal (applies to non-numeric resul ts) [facility] Potassium 3.5-5.1 Normal (applies to non-numeric resul ts) [facility] Chloride 102 mmol/L 98-107 Normal (applies to non-numeric resul ts) [facility] Carbon Dioxide CO2 21-32 Normal (applies to non-numer ic results) [facility] Anion Gap 5.0-16.0 Normal (applies to non-numeric resul ts) [facility] BUN 13 mg/dL 7-18 Normal (applies to non-numeric results) [facility] Creatinine,Serum 0.7-1.2 Normal (applies to non-numeric results) [facility] GFR >60 Normal (applies to non-numeric results) [facility] Glucose Level 97 mg/dL 60-99 Normal (applies to non-numeric re sults) [facility] Reference range is only applicable when patient is fasting Note the following drug interference: Sulfasalazine Sulfapyridine Can see falsely depressed Can see falsely elevated result with up to 17% results with up to 11% decrease in measurement increase in measurement Recommend patients be collected for this test prior to administration of either drug. Calcium 8.5-10.1 Normal (applies to non-numeric resul ts) [facility] Bilirubin,Total 0.1-1.9 Normal (applies to non-numeric results) [facility] SGOT(AST) 30 U/L 15-37 Normal (applies to non-numeric resul ts) [facility] Note the following drug interference: Sulfasalazine Sulfapyridine Can see falsely depressed Can see falsely elevated result with up to 10% results with up to 10% decrease in measurement increase in measurement Recommend patients be collected for this test prior to administration of either drug. SGPT(ALT) 54 U/L 12-78 Normal (applies to non-numeric resul ts) [facility] Note the following drug interference: Sulfasalazine Sulfapyridine Can see falsely depressed Can see falsely elevated result with up to 29% results with up to 10% decrease in measurement increase in measurement Recommend patients be collected for this test prior to administration of either drug. Alkaline Phosphatase 130 U/L 38-126 Above high normal [facility] can increase Alkaline Phosp le vels up to 2 times the normal adult value. Normal values for children and adolescents are 2 to 3 times the normal adult value. Total Protein 6.0-8.2 Above high normal [facility] Albumin Level 3.4-5.0 Normal (applies to non-numeric re sults) [facility] ID Date Data Source [id number] 04/12/2021 04:52:00 AM EDT [facility] Name Value Range Interpretation Code Description Data Stephanie rce(s) Supporting Document(s) Acetaminophen 10.0-30.0 Below low normal [facility] ID Date Data Source [id number] 04/12/2021 04:52:00 AM EDT [facility] Name Value Range Interpretation Code Description Data Stephanie rce(s) Supporting Document(s) Magnesium 1.8-2.4 Normal (applies to non-numeric resul ts) [facility] ID Date Data Source [id number] 04/12/2021 04:52:00 AM EDT [facility] Name Value Range Interpretation Code Description Data Stephanie rce(s) Supporting Document(s) Troponin I 0.000-0.056 Normal (applies to non-numeric resu lts) [facility] ID Date Data Source [id number] 04/12/2021 04:52:00 AM EDT [facility] Name Value Range Interpretation Code Description Data Stephanie rce(s) Supporting Document(s) Salicylate 2.8-20.0 Below low normal [facility] ID Date Data Source [id number] 04/12/2021 04:51:00 AM EDT [facility] Name Value Range Interpretation Code Description Data Stephanie rce(s) Supporting Document(s) Ethanol Less than 10.0 Normal (applies to non-numeric r esults) [facility] ID Date Data Source [id number] 04/12/2021 04:23:00 AM EDT [facility] Name Value Range Interpretation Code Description Data Stephanie rce(s) Supporting Document(s) White Blood Count 3.5-10.5 Normal (applies to non-numeri c results) [facility] Red Blood Count 3.90-5.00 Normal (applies to non-numeric results) [facility] Hemoglobin 12.0-15.5 Normal (applies to non-numeric resul ts) [facility] Hematocrit 34.9-44.5 Normal (applies to non-numeric resul ts) [facility] Mean Corpuscular Volume 81.2-95.1 Normal (applies to non- numeric results) [facility] Mean Corpuscular Hgb 25.6-32.2 Normal (applies to non-num deena results) [facility] Mean Corpuscular Hgb Conc 32.0-36.0 Normal (applies to no n-numeric results) [facility] Red Cell Distribution Width 11.9-15.5 Normal (appli es to non-numeric results) [facility] Platelet Count 306 x10 3/uL 150-450 Normal (applies to non-numeric results) [facility] Mean Platelet Volume 9.4-12.4 Normal (applies to non-num deena results) [facility] Neutrophils% (Auto) 31.0-71.0 Normal (applies to non-nume frank results) [facility] Lymphocytes% (Auto) 20.0-55.0 Normal (applies to non-nume frank results) [facility] Monocytes% (Auto) 4.0-12.0 Normal (applies to non-numeri c results) [facility] Eosinophils% (Auto) 1.0-8.0 Normal (applies to non-nume frank results) [facility] Basophils% (Auto) 0.0-2.0 Normal (applies to non-numeri c results) [facility] Immature Granulocytes% (Auto) 0.0-2.0 Normal (alexander lies to non-numeric results) [facility] Neutrophils# (Auto) 1.50-6.20 Above high normal [facility] Lymphocytes# (Auto) 1.20-4.00 Normal (applies to non-nume frank results) [facility] Monocytes# (Auto) 0.00-0.90 Normal (applies to non-numeri c results) [facility] Eosinophils# (Auto) 0.00-0.50 Normal (applies to non-nume frank results) [facility] Basophils# (Auto) 0.00-0.20 Normal (applies to non-numeri c results) [facility] Immature Granulocytes# (Auto) 0.00-7.00 No rmal (applies to non-numeric results) [facility] ID Date Data Source [id number] 04/12/2021 03:50:00 AM EDT [facility] Name Value Range Interpretation Code Description Data Stephanie rce(s) Supporting Document(s) Respiratory specimen severe acute respir atory syndrome coronavirus 2 (SARS-CoV-2) RNA Not Detected [facility] This lab was ordered by [facility] [place] and reported by . ID Date Data Source [id number] 04/12/2021 05:08:00 AM EDT [facility] Name Value Range Interpretation Code Description Data Stephanie rce(s) Supporting Document(s) RP Internal Control Passed Normal (applies to non-nume frank results) [facility] Adenovirus None Detect Normal (applies to non-numeric resu lts) [facility] Coronavirus 229E None Detect Normal (applies to non-numeri c results) [facility] Coronavirus HKU1 None Detect Normal (applies to non-numeri c results) [facility] Coronavirus NL63 None Detect Normal (applies to non-numeri c results) [facility] Coronavirus OC43 None Detect Normal (applies to non-numeri c results) [facility] SARS-CoV-2 Not Detect Normal (applies to non-numeric resul ts) [facility] Negative results do not preclude SARS-Co V-2 infection and should not be used as the sole basis for treatment or other patient management decisions. Negative results must be combined with clinical observations, patient history, and epidemiological information. Testing was performed using the [employer] real-time nested multiplexed PCR Respiratory Panel 2.1 [...] Detect Normal (applies to non-n umeric results) [facility] Rhino/Enterovirus None Detect Normal (applies to non-numer ic results) [facility] Influenza A None Detect Normal (applies to non-numeric res ults) [facility] Influenza B None Detect Normal (applies to non-numeric res ults) [facility] Parainfluenza Virus 1 None Detect Normal (applies to non-n umeric results) [facility] Parainfluenza Virus 2 None Detect Normal (applies to non-n umeric results) [facility] Parainfluenza Virus 3 None Detect Normal (applies to non-n umeric results) [facility] Parainfluenza Virus 4 None Detect Normal (applies to non-n umeric results) [facility] Respiratory Syncytial Virus None Detect Norm al (applies to non-numeric results) [facility] Bordetella Parapertussis None Detect Normal (applies to non-numeric results) [facility] Bordetella Pertussis None Detect Normal (applies to non-nu meric results) [facility] Chlamydia Pneumoniae None Detect Normal (applies to non-nu meric results) [facility] Mycoplasma Pneumoniae None Detect Normal (applies to non-n umeric results) [facility] Methodology: Multiplexed PCR Refer ence Range: None detected ID Date Data Source [id number] 04/12/2021 04:42:00 AM EDT [facility] Collected By: Nurse Initials: cs Time Collected: 324 Collected By: Nurse Initials: cs Time Collected: 324 Name Value Range Interpretation Code Description Data Stephanie rce(s) Supporting Document(s) Color,Urine Colorl-Dk Y Normal (applies to non-numeric res ults) [facility] Clarity,Urine Clear [facility] Specific [place],Urine 1.005-1.030 Normal (applies to non- numeric results) [facility] pH,Urine 5.0-8.0 Normal (applies to non-numeric resul ts) [facility] Protein,Urine Negative [facility] [place] Glucose,Urine Negative Normal (applies to non-numeric re sults) [facility] Ketones,Urine Negative [facility] [place] Blood,Urine Negative Normal (applies to non-numeric resu lts) [facility] Bilirubin,Urine Negative Normal (applies to non-numeric results) [facility] Urobilinogen,Urine 0.2-1.0 Normal (applies to non-numer ic results) [facility] Leukocyte Esterase,Urine Negative Normal (applies to non -numeric results) [facility] Nitrite,Urine Negative Normal (applies to non-numeric re sults) [facility] ID Date Data Source [id number] 04/12/2021 04:42:00 AM EDT [facility] Collected By: Nurse Initials: cs Time Collected: 324 Collected By: Nurse Initials: cs Time Collected: 324 Name Value Range Interpretation Code Description Data Stephanie rce(s) Supporting Document(s) RBC,Urine None Seen Normal (applies to non-numeric resul ts) [facility] WBC,Urine None Seen [facility] Casts,Urine None Seen Normal (applies to non-numeric resu lts) [facility] Squamous Cells,Urine None Seen [facility] Amorphous Sediment,Urine None Seen [facility] Bacteria,Urine None Seen [facility] ital ID Date Data Source [id number] 04/12/2021 04:32:00 AM EDT [facility] Name Value Range Interpretation Code Description Data Stephanie rce(s) Supporting Document(s) UDS Benzodiazepines Screen Negative Normal (applies to n on-numeric results) [facility] UDS Cocaine Screen Negative Normal (applies to non-numer ic results) [facility] UDS Ampetamine Screen Negative Normal (applies to non-nu meric results) [facility] UDS Cannabinoids Screen Negative Normal (applies to non- numeric results) [facility] UDS Opiates Screen Negative Normal (applies to non-numer ic results) [facility] UDS Barbiturates Screen Negative Normal (applies to non- numeric results) [facility] Threshold Levels Benzodiazepine 200 ng/mL Cocaine 300 ng/mL Amphetamines 1000 ng/mL Cannabinoids (THC) 50 ng/mL Opiates 300 ng/mL Barbiturates 200 ng/mL All positive findings are presumptive and unconfirmed. Confirmation of positive results are performed only at request of provider. Unconfirmed results must not be used for non-medical purposes (i.e. preemployment and legal purposes) ID Date Data Source [id number] 04/11/2021 01:49:00 PM EDT [address] DISCHARGE SUMMARYPATIENT NAME: YARELI HATCH MR#: [id number] PHYSICIAN: BOGDAN ALMAGUER MDAUTHOR: Colleen SMITH,Bogdan DATE: 04/09/21 #: [id number] DATE: 04/11/21HistoryIdentificationThis is a 16-ndnib-kzk white female.Chief Complaint"I am having suicidal thoughts and anxiety."Reason for AdmissionPatient is well known to us. She presented to the ER with the complaint ofincreased suicidal ideations after an argument with her significant other. Shehas a history of suicidal ideations and multiple inpatient treatment. Patientcannot contract for safety. Hence, she was hospitalized.History of Presenting IllnessPatient was seen today along with the wastewater treatment plant instructor, Gloria, and a PAstudent from [employer]. She presented to the ER with [facility] due to patient contacting them stating [...] hasn't beensleeping for 3 weeks.Patient was at [facility] since and transferred to [facility] and discharged. She states that [place] [facility] [place] and has been trying to be admitted to several hospitalsthere. Stated she cannot contract for safety and thus requested an inpatienttreatment. She reported increased stress due to not feeling safe at her [place]residence due to another resident, increased family conflict due to beingtransgender and ex being in [facility]. She also reported that she was notfollowing the rule of [facility]. She is not diligent with medications.Past Psych/Medical HistoryPsychiatric HistoryShe has long history of psychiatric problem including bipolar disorder, ADHD,anxiety, and depression with numerous hospitalizations. She has attemptedsuicide multiple times by overdose and by cutting herself. She was dischargedjust one day before her last hospitalization. [facility] [place]. She is on AOT since 01/09/21.Medical HistoryDenies [...] she would prefer to bedischarged back to [facility] as she is no longer feeling suicidal. [...] phone she has to phone someone is Yo and 1 is iPhone, she is talking about coloring as well as eating foodand to start her coping skill as well. She also stated [facility] and she would come back into thehospital if needed as well. She also denies [...] 240Continue taking these medications:IBUPROFEN (IBUPROFEN) 400 MG [id number] MILLIGRAM Orally EVERY 6 HOURS NEEDED as needed for HeadacheQty = 21Loratadine* (Claritin*) 10 MG EXWLJZ70 MILLIGRAM Orally DAILYDays = 30 Qty = 30PROPRANOLOL HCL (Inderal*) 10 MG NLQTYY15 MILLIGRAM Orally TWICE DAILYDays = 30 Qty = 60TOPIRAMATE (TOPAMAX) 25 MG EGWNPZ52 MILLIGRAM Orally DAILYDays = 60 Qty = 30SERTRALINE (Zoloft*) 50 MG [id number] MILLIGRAM Orally DAILYDays = 30 Qty = 30MONTELUKAST SODIUM (MONTELUKAST) 10 MG HIXEIQ67 MILLIGRAM Orally DAILYDays = 30 Qty = 30Aripiprazole* (Abilify*) 10 MG SKBCOV94 MILLIGRAM Orally DAILYPRAZOSIN HCL (PRAZOSIN HCL) 2 MG CAPSULE2 MILLIGRAM Orally AT BEDTIMEOlanzapine* (Zyprexa*) 5 MG TABLET5 MILLIGRAM Orally AT BEDTIMEAripiprazole (Abilify Maintena) 400 MG SUSER.AKT740 MILLIGRAM Intramuscularly U67VOki = 1Instructions:last im inj received 04/03/21Discharge Activity: As toleratedDischarge diet: RegularFollow-upFollow up with your Primary care physicianFollow up with therapiest and psychiatristrecommended outpt chemical dependencyReferralsOrdered ReferralsM[facility] [place] [address] [phone]) on April 15 at9:[address] Giles.[facility] [place] [address] [facility](#[phone][facility] on April 18 at2:00 pm with Grayson.DATE SIGNED: 04/11/21 Electronically Melania dTIME SIGNED: 1353 BOGDAN ALMAGUER MD Name Value Range Interpretation Code Description Data Stephanie rce(s) Supporting Document(s) ID Date Data Source [id number] 04/11/2021 09:25:00 AM EDT [facility] [id number] NAME: YARELI HATCH#: [id number] PHYSICIAN: HUBER VELAZQUEZ #: [id number] ADM. DATE: 04/09/21PATIENT : 00 DISCH. DATE: [50}DISCHARGE SUMMARYMHU discharge planNicotine Replacement TherapySmoking Status Current some day smokerPrescribed at discharge Rx offered, pt refusedAlcohol/Drug DisorderAlcohol or Drug Disorder counseling prescribedPersonal Care InstructionsDischarge Activity: As toleratedDischarge diet: RegularFollow Up CareFollow Up:Follow up with your Primary care physicianFollow up with therapiest and psychiatristrecommended outpt chemical dependencyPriority ItemsUrgent/Important items that need to be addressed at [facility] care follow-upappointmentDischarge InformationDISCHARGE INFORMATION* Thank you for choosing [facility] and allowing us toserve you* Our Goal is to provide the highest quality of care.* This discharge information is to help you better understand your diagnosisand medication* Avoid taking udcd-tng-yxmiyjj medicines unless approved by your physician.* Take your medications as prescribed. DO NOT stop any medications unlessapproved first* Weigh yourself daily. Report any gain of 5 lbs in a week* 24 Hour Crisis HOTLINE available: Call Reachout at [phone]* Chem. Dependency: Walk in Clinics [place] ([phone]) and [place] ([phone]) anytime Wednesday thru Wednesday 8 to 10am. [place] ([phone]) anytimeWednesday thru Wednesday 8 to 10am. [facility] ([phone]) Wednesday or Wednesday from 8to 10am (Bring $30 to [facility]) SMOKIN G CESSATION* Smoking is dangerous to your health. It delays the healing process, andworks against your medications. Not smoking will improve your health* Our hospital participates with the Opt-to-Quit program. You will be contactedafter discharge by the [facility] Smoker's Quitline for support with tobaccocessation. You have the option once contacted to refuse this service.* You can also go online to www.[employer]. Free nicotine replacementsare available Attention* You should [...] rce(s) Supporting Document(s) ID Date Data Source [id number] 04/10/2021 01:59:00 PM EDT [address] HEALTH PROGRESS NOTEPATIENT NAME: YARELI HATCH PHYSICIAN: BOGDAN ALMAGUER MDAUTHOR: Colleen SMITH,DhruvADM. DATE: 04/09/21 MR#: [id number] NOTE DATE: 04/10/21 RM#: [id number] TIME: 1402 is a 08-cognd-srw white female.CC/Hx Present Illness"I am having suicidal thoughts and anxiety."Events Since Last EntryPatient reported that she has been feeling better, she stated that she wouldlike to go back to [facility], she stated that she was dealing with [...] rce(s) Supporting Document(s) ID Date Data Source [id number] 04/10/2021 07:18:00 AM EDT [address] HEALTH HISTORY AND PHYSICALPATIENT NAME: YARELI HATCH MR#: [id number] PHYSICIAN: BOGDAN ALMAGUER MDAUTHOR: Evi SMITH,S. DATE: 04/09/21 #: 3RDHistoryChief Complaint/Admit Reason"I am having suicidal thoughts [...] Home Medication ListAllergiesCoded Allergies:risperidone (08/04/19)ExamVital SignsVital Signs-24 HRS09/123295Mtyb 98.8Pulse 80Resp 18B/P 122/65B/P MeanPulse Ox 99O2 DeliveryO2 Flow LfqcFjO5Hvruclyxoj/PlanDiagnosis/Problem1. Major depressive disorderStatus Chronic2. Suicide attemptStatus Acute3. Bipolar affective disorderStatus Chronic4. Bipolar disorder5. Borderline personality disorderStatus Chronic6. Obesity, morbidStatus ChronicDATE SIGNED: 04/10/21 Deann garcia SignedTIME SIGNED: 0732 DORI KENNEDY MD Name Value Range Interpretation Code Description Data Stephanie rce(s) Supporting Document(s) ID Date Data Source [id number] 04/09/2021 04:05:00 PM EDT [facility] PSYCHIATRIC ASSESSMENTPATIENT NAME: YARELI HATCH MR#: [id number] PHYSICIAN: BOGDAN ALMAGUER MDAUTHOR: Surendra SMITHP. DATE: 04/09/21 #: 3RDHistoryIdentificationThis is a 89-tvfgr-bsc white female.Chief Complaint"I am having suicidal thoughts and anxiety."Reason for AdmissionPatient is well known to us. She presented to the ER with the complaint ofincreased suicidal ideations after an argument with her significant other. Shehas a history of suicidal ideations and multiple inpatient treatment. Patientcannot contract for safety. Hence, she was hospitalized.History of Presenting IllnessPatient was seen today along with the wastewater treatment plant instructor, Gloria, and a PAstudent from [employer]. She presented to the ER with [facility] due to patient contacting them stating [...] hasn't beensleeping for 3 weeks.Patient was at [facility] since and transferred to [facility] and discharged. She states that she was [place] and[place] and has been trying to be admitted to several hospitalsthere. Stated she cannot contract for safety and thus requested an inpatienttreatment. She reported increased stress due to not feeling safe at her [place]residence due to another resident, increased family conflict due to beingtransgender and ex being in [facility]. She also reported that she was notfollowing the rule of [facility]. She is not diligent with medications.Portions of this section were scribed by Shell Ariza on 04/09/21 at 1638Past Psych/Medical HistoryPsychiatric HistoryShe has long history of psychiatric problem including bipolar disorder, ADHD,anxiety, and depression with numerous hospitalizations. She has attemptedsuicide multiple times by overdose and by cutting herself. She was dischargedjust one day before her last hospitalization. [facility] [place]. She is on AOT since 01/09/21.Medical HistoryDenies [...] rce(s) Supporting Document(s) ID Date Data Source [id number] 04/09/2021 07:55:00 AM EDT [facility] Name Value Range Interpretation Code Description Data Stephanie rce(s) Supporting Document(s) LCOVID-19, CORDELL NEGATIVE [facility] This lab was ordered by [facility] and reported by [facility]. ID Date Data Source [id number] 04/09/2021 08:19:00 AM EDT [facility] Name Value Range Interpretation Code Description Data Stephanie rce(s) Supporting Document(s) COVID-19, CORDELL NEGATIVE NEGATIVE [facility] Methodology: Isothermal Nucleic Acid Amp [...] Emergency Use Authorization. ID Date Data Source [id number] 04/08/2021 11:32:00 PM EDT [facility] Name Value Range Interpretation Code Description Data Stephanie rce(s) Supporting Document(s) SALICYLATE < 1.7 mg/dL 0.0-20.0 N [facility] ID Date Data Source [id number] 04/08/2021 11:32:00 PM EDT [facility] Name Value Range Interpretation Code Description Data Stephanie rce(s) Supporting Document(s) ACETAMINOPHEN < 2.0 ug/mL 0-30 [facility] Date Data Source [id number] 04/08/2021 11:32:00 PM EDT [facility] Name Value Range Interpretation Code Description Data Stephanie rce(s) Supporting Document(s) ETOH 0.004 g/dL NONE DETECTED H [facility] ID Date Data Source [id number] 04/08/2021 11:32:00 PM EDT [facility] [place] Name Value Range Interpretation Code Description Data Stephanie rce(s) Supporting Document(s) GLU 100 mg/dL 70-110 [facility] Patients taking Sulfasalazine may have f alsely depressedGlucose levels. Patients taking Sulfapyridine may havefalsely elevated Glucose levels. Patients should be drawnfor Glucose before the initial administration of eitherdrug. BUN 12 mg/dL 7-23 [facility] CRE 0.644 mg/dL 0.500-1.300 [facility] GFR > 60 mL/min [facility] CHLORIDE 111 mmol/L 99-110 [facility] NA 142 mmol/L 136-147 [facility] POTASSIUM 3.9 mmol/L 3.5-5.1 [facility] TCO2 28 mmol/L 20-33 [facility] ANION GAP 6.9 10.0-20.0 [facility] CA 8.4 mg/dL 8.3-10.7 [facility] ALKALINE PHOS 124 U/L 45-117 [facility] TP 7.4 g/dL 6.0-7.8 [facility] ALB 3.5 g/dL 3.5-5.0 [facility] ESRD Dialysis patient Albumin reference range: 2.9-4.4 g/dL GL 3.9 g/dL 2.3-3.5 [facility] A/G 0.9 1.0-2.5 [facility] T. BILIRUBIN 0.2 mg/dL 0.1-1.1 [facility] The [employer] [place] Total Bilirubin is n ot recommended forpatients undergoing treatment with eltrombopag (Promacta)due to the potential for falsely elevated results. ALTI 55 U/L 6-54 [facility] Patients taking Sulfasalazine and/or Sul fapyridine may havefalsely depressed ALT levels. Patients should be drawn forALT before the initial administration of either drug. AST 31 U/L 6-38 [facility] Patients taking Sulfasalazine and/or Sul fapyridine may havefalsely depressed AST levels. Patients should be drawn forAST before the initial administration of either drug. ID Date Data Source [id number] 04/08/2021 11:05:00 PM EDT [facility] Name Value Range Interpretation Code Description Data Stephanie rce(s) Supporting Document(s) WBC 8.86 x10E3/uL 4.0-10.5 [facility] RBC 4.27 x10E6/uL 4.20-5.40 [facility] Hemoglobin 12.5 g/dL 12.0-16.0 [facility] Hematocrit 38.3 % 37.0-47.0 [facility] MCV 89.7 fL 81.0-99.0 [facility] MCH 29.3 pg 27.0-31.0 [facility] MCHC 32.6 g/dL 32.7-35.6 [facility] RDW 12.1 % 11.5-14.0 [facility] Platelet count 266 x10E3/uL 150-450 [facility] ital MPV 9.6 fl 6.9-9.5 [facility] Neutrophils 57.4 % 34-64 [facility] Lymphocytes 32.3 % 25-45 [facility] Monocytes 7.8 % 1.7-10.6 [facility] Eosinophils 1.7 % 0.4-7.0 [facility] Basophils 0.3 % 0.1-2.0 [facility] Imm. Gran. 0.5 % 0.1-2.0 [facility] Abs. Neutro. 5.09 x10E3/uL 1.2-7.6 [facility] Lymph. 2.86 x10E3/uL 1.0-3.5 [facility] Abs. Levy. 0.69 x10E3/uL 0.1-1.0 [facility] Abs. Eosin. 0.15 x10E3/uL 0.1-0.7 [facility] Baso. 0.03 x10E3/uL 0.0-0.1 [facility] Abs. Imm. Gran. 0.04 x10E3/uL 0.0-0.1 [facility] spital ANRBC% 0 % 0 [facility] ID Date Data Source [id number] 04/08/2021 11:56:00 PM EDT [facility] [place] Name Value Range Interpretation Code Description Data Stephanie rce(s) Supporting Document(s) PCP VISTA NEG NEGATIVE [facility] MINIMUM LEVEL OF DETECTION IS 25 ng/ml BENZODIAZEPINES NEG NEGATIVE [facility] al MINIMUM LEVEL OF DETECTION IS 200 ng/ml COCAINE VISTA NEG NEGATIVE [facility] MINIMUM LEVEL OF DETECTION IS 300 ng/ml AMPHETAMINES NEG NEGATIVE [facility] al MINIMUM LEVEL OF DETECTION IS 1000 ng/ml BARBITURATES NEG NEGATIVE [facility] al CUTOFF CONCENTRATION IS 200 ng/ml CANNABINOIDS NEG NEGATIVE [facility] al CUTOFF CONCENTRATION IS 50 ng/ml METHADONE VISTA NEG NEGATIVE [facility] al MINIMUM LEVEL OF DETECTION IS 300 ng/ml OPIATE VISTA NEG NEGATIVE [facility] MINIMUM DETECTION LEVEL IS 300 ng/ml ID Date Data Source [id number] 04/08/2021 11:30:00 PM EDT [facility] Name Value Range Interpretation Code Description Data Stephanie rce(s) Supporting Document(s) URINE COLOR Yellow [facility] UAPR Turbid [facility] UGLU Negative NEGATIVE [facility] URINE BILIRUBIN Negative [facility] UKET Negative NEGATIVE [facility] USG 1.021 1.010-1.025 [facility] UBLO Negative NEGATIVE [facility] UpH 8.5 5.0-8.0 [facility] UPRO Trace Negative [facility] UUB 1.0 mg/dL 0.2-1.0 [facility] UNIT Negative Negative [facility] ULEU Trace Negative [facility] ID Date Data Source [id number] 04/08/2021 11:30:00 PM EDT [facility] [place] Name Value Range Interpretation Code Description Data Stephanie rce(s) Supporting Document(s) URINE RBC 0-2 RBCs/HPF NONE SEEN [facility] URINE WBC 3-5 WBCs/HPF NONE SEEN [facility] URINE BACTERIA Few N[facility] URINE EPI. Many NONE SEEN N [facility] URINE CRYSTAL MANY AMORPHOUS NONE SEEN [facility] ID Date Data Source [id number] 04/08/2021 11:30:00 PM EDT [facility] [place] Name Value Range Interpretation Code Description Data Stephanie rce(s) Supporting Document(s) HCG QUAL URINE Negative Negative [facility] ID Date Data Source [id number] 04/09/2021 04:09:00 PM EDT [facility] [place] Physician DocumentationClaxton-Cristina Hinkle edical CenterName: Yareli DuvallAge: 20 yrsSex: FemaleDOB: 2000MRN: [id number] Date: 04/08/2021Time: 22:26Account#: [id number] Kasx2Qblmgnn MD: NONE, - Per PatientED Physician Zhao Rajan Summary:04/09/21 12:49Hospitalization OrderedHospitalization Status: Inpatient Oqkevdtwore2Ipyziooi: Anjel Oneillmrf2Location: Mental Health Nqtere4Cxueblart: Cirxnrfa3Iksshky: an acute wsoppezfjvmwcp2Eimxyaoz: are hiaedjplggw2Olty Assignment:fu5Nushygjep- Major depressive disorder, recurrent, erwpvolqvplwh4Fzjhftonij Information- Admission Type: Inpatient Status.ik5Zivnv:- Medication Reconciliationrf2- SBARrf2- Medication Reconciliation Form - 2nd Copyrf2- Psych. PFAJou5DUV:03/2906:59 This 20 yrs old White Female presents to ER via Police with complaints ofPsych Problem.br07:19 20-year-old female with extensive psychiatric history of bipolar ADHDanxiety brdepression presents complaints of increasing suicidal ideation after argumentwithsignificant other. Patient states that she has plan to harm herself by hanging.In EDpatient seemed to be comfortable and cooperative.IT ARCHITECT:03/2822:31 LMP 02/[id number]:- Allergies: Haldol; Risperdal;- Home Meds:1. prazosin 2 mg Oral capsule 1 cap every day at bedtime2. Zyprexa 5 mg Oral tablet 1 tab nightly3. montelukast 10 mg oral tablet 1 tab daily4. topiramate 75mg oral tablet daily5. aripiprazole 10 mg oral tablet 1 tab daily6. aripiprazole 400 mg intramuscular suspension,extended release syringe 400 glssniz98 days7. sertraline 50 mg oral tablet 1 [...] Temp 97.3; Pulse Ox 98% on R/A; Zinmcs594.33 kg (R); kx7Cpxhai 5 ft. 6 in. ; Pain 0/10;03/2908:38 BP 123 / 77; Pulse 66; Resp 18; Temp 97(TE); Pulse Ox 98% on R/A;sw215:20 BP 126 / 70 (auto/); Pulse 70 MON; Pul se Ox 97% ;ef109/2:31 Body Mass Index 37.12 (104.33 kg, 167.64 cm)kk309/2:31 Pain Scale: Ncopicp9PWU:03/2822:45 Patient medically screened.br09/2906:53 Transition of care: Care assumed from Zeeshan Grover MD.rf206:54 Data reviewed: vital signs, nurses notes, lab test result(s), CBC, druglevel(s), kd2cdoognivsczpu, alcohol, salicylate, electrolytes, hepatic panel, urinalysis,urine drugscreen. ED course: Patient is medically cleared and pending PSA evaluation.03/2822:38 Order name: Acetaminophen Level; Complete Time: 06::38 Order name: CBC with diff; Complete Time: :2821:38 Order name: CMP; Complete Time: ::38 Order name: COVID-19 PROFILE+LAB; Complete Time: 08::38 Order name: ETOH; Complete Time: 06::38 Order name: Glucose; Complete Time: 06::53 Interpretation: Within normal limits.rf:38 Order name: Salicylate Level; Complete Time: 06::38 Order name: Triage - Drug Screen; Complete Time: 06::38 Order name: UA; Complete Time: 06::38 Order name: Urine HCG Qualitative; Complete Time: 06::38 Order name: Diet - Mental Health Tray (call dietary); Complete Time:00::38 Order name: Belongings List; Complete Time: 15::38 Order name: Document Weight and Height for BMI; Complete Time: 00::38 Order name: Mental Health Evaluation; Complete Time: 06::38 Order name: Mental Health Level 3; Complete Time: 00::38 Order name: VS q shift; Complete Time: 00::54 Order name: Medically Cleared for Eval by-Psychosocial, Sub Prior (.PSA);Complete Time: rf213:27Dispensed Medications:08:37 Drug: sertraline 50 mg [sertraline 50 mg tablet (1 tabs)] Route: PO;sw215:21 Follow up: Response: No adverse xtgfxrbmfy700:37 Drug: Topiramate 75 mg [topiramate 25 mg tablet (3 tabs)] Route: PO;sw215:21 Follow up: Response: No adverse :38 Drug: ARIPiprazole 10 mg [aripiprazole 10 mg tablet (1 tabs)] Route: PO;215:22 Follow up: Response: No adverse aezixrsraj619:38 Drug: Loratadine 10 mg [loratadine 10 mg tablet (1 tabs)] Route: PO;sw215:21 Follow up: Response: No adverse wkihjdxsfu752:38 Drug: Montelukast 10 mg Route: PO;215:21 Follow up: Response: No adverse iujcrbtdbu591:38 Drug: Propranolol 10 mg [propranolol 10 mg tablet (1 tabs)] Route: PO;sw215:21 Follow up: Response: No adverse roman qsvzbov4Tlroslzlio:Dispatcher [employer] Fortunato Burrell RN RN ve4BlkcafoZeeshan armstrong MD MD brKelly, Krista RN RN gs4Cskr, JOSE LUIS Baker RN on2SnzflSantiago betts MD MD zv6NsdrlyroAmi dang RN gy4Gtyexqilsep: (The following items were deleted from the chart)01:16 04/08 22:33 Home Meds: Lexapro 10 mg Oral tablet 1 tab nightly; kk3kk3 Name Value Range Interpretation Code Description Data Stephanie rce(s) Supporting Document(s) ID Date Data Source [id number] 04/09/2021 04:09:00 PM EDT [facility] [place] Nurse's NotesClaxMaria [facility] terName: Yareli DuvallAge: 20 yrsSex: FemaleDOB: 2000MRN: [id number] Date: 04/08/2021Time: 22:26Account#: [id number] Jitendra MD: NONE, - Per PatientDiagnosis: Major depressive disorder, recurrent, unspecifiedPresentation:03/2822:28 Presenting complaint: Patient states: "I am having suicidal thoughts andanxiety.". fh1Ilrrbdzlpgm Screening: Have you been diagnosed with COVID-19 in the past 30days? noAre you currently on quarantine by Public Health? no Flu-like symptoms reportedin thelast 14 days: no. Have you had close contact with confirmed or suspectedCOVID-19 case?no Do you live in a setting where a large of amount of people live, such [facility], family care, [facility], etc? no. Have you traveled to a location withwidespread orongoing COVID-19 community spread or outside of [facility]? no Have you traveledinternationally or had contact with someone that has traveled and has been illin thepast 3 weeks? no Have you received the COVID vaccine? Yes. Communication SpeaksEnglish? Yes, is preferred language. Language Line Services needed? No Are TDDneeded?No. Best learning method: discussion. Learning barriers: none identified.22:28 Acuity: Triage 0gt508:28 Method Of Arrival: Pxlszajk284:29 Presenting complaint: Badge #[id number] from [facility] states patient madesuicidal se2dhthqkkaaf and called police to be brought in.22:30 Acuity Assignment: Triage 7al377:50 International Travel Fever No. Communicable Disease Screen: Negative forfever>/= 100 yk2xopcsdx Fahrenheit. Communicable disease screen is negative. (-) rash orunusual skinlesion (-) travel/contact with traveler (-) respiratory symptoms.Triage Assessment:22:34 General: Appears in no apparent distress, well nourished, well groomed,Behavior is rg6iqblcqk, appropriate for age, cooperative, Denies fever, chills. [...] urinary frequency, urgency.Musculoskeletal: Circulation, motion, and sensation intact.IT ARCHITECT:22:31 LMP 02/20218965zk8Vwopxmhhxh:- Allergies: Haldol; Risperdal;- Home Meds:1. prazosin 2 mg Oral capsule 1 cap every day at bedtime2. Zyprexa 5 mg Oral tablet 1 tab nightly3. montelukast 10 mg oral tablet 1 tab daily4. topiramate 75mg oral tablet daily5. aripiprazole 10 mg oral tablet 1 tab daily6. aripiprazole 400 mg intramuscular suspension,extended release syringe 400 tpunsia06 days7. sertraline 50 mg oral tablet 1 [...] threats or abuse. Denies injuries from another.Nutritional yn3uopfgrewa: No deficits noted. Offer of HIV testing: patient was previouslyofferedscreening. Fall Risk None identified.Assessment:03/2822:37 Reassessment: see triage assessment by this policy writer.kk323:59 Reassessment: Patient appears in no apparent distress at this time.jw509/2900:52 Reassessment: Patient appears in no apparent distress at this time.kk302:19 Reassessment: No changes from previously documented assessment.jw503:49 Reassessment: No changes from previously documented assessment.jw505:06 Reassessment: No changes from previously documented assessment.jw506:34 Reassessment: No changes from previously documented assessment.jw508:29 Reassessment: Patient appears in no apparent distress at this time. Nochanges from ob9npgzcpukkt documented assessment. Sitter at bedside. .09:59 Reassessment: Patient appears in no apparent distress at this time. Nochanges from qx9qxbvoltxyq documented assessment. Patient sleeping in bed. Sitter at bedside. .10:57 Reassessment: Patient appears in no apparent distress at this time. Nochanges from kb3xfuhhycnjp documented assessment. Patient sleeping. Sitter at bedside. .Psychosocial:04:52 Narrative PSA spoke to Dulce at [facility] ([phone]) who states that thepatient was ph2ugql all day. She states that she was [...] Completed. Interventi on: Observation Level 3.Referral Information: qy9Dacgvqzjjy referral is generated by a police agency: [employer]. The patient wasreferred forevaluation because patient had voiced suicidal ideations.05:09 Subjective: The patients chief complaint is Pt presents to the ED by [employer].Patient xd0fwkctad feeling suicidal for "a while" now and [...] history of anxiety, Bipolar Disorder, Depression, self-mutilation, cy6Wqxnm: [employer]. Mental Health Admissions: several. pt was last at [facility] 04/01/21 anddischarged 04/03 Current Outpatient Mental Health Services: [facility] [place] Living Environment: Family / Home Support: poorThepatient currently lives in a [facility] residence. The patient is single. Detox /RehabAdmissions: None. Current Outpt Alcohol or Substance Abuse Services: None.05:16 Patient presents to Emergency Department with the following symptomswithin the past 2 yw5cfgwv: suicidal ideation with plan for jump in [...] patient status is not currently needed orappropriate. yq4Qvisgzsnmkkh: Psych MD informed of patient's status at 06:00, ED MD notified ofpatients status at 06:34. Disposition: Medically cleared for disposition by [facility].Psychiatric Consult is performed by phone with Dr David STEVENS. DSM-V DX [place] Idiagnosis:Depression, Unspecified. Insurance Pre-Certification: Not Required. IMHUAdmissionCriteria: [...] dosageadjustments. Awaiting. The patient is not a dining service worker or militarydependent.[place] Suicide Severity Rating Scale: Suicidal Ideation Rating 5; IntensityofIdeations Rating 25; Suicidal Behavior Rating 0.Psych:00:00 Subjective: Patient's mood is elevated, Delusions are denied,Hallucinations are denied fa4Mpfifm thoughts of suicide. Denies suicidal plan. Objective: [...] Temp 97.3; Pulse Ox 98% on R/A; Zyurpq151.33 kg (R); ev3Hgufrv 5 ft. 6 in. ; Pain 0/10;03/2908:38 BP 123 / 77; Pulse 66; Resp 18; Temp 97(TE); Pulse Ox 98% on R/A;sw215:20 BP 126 / 70 (auto/); Pulse 70 MON; Pulse Ox 97% ;ef109/2822:31 Body Mass Index 37.12 (104.33 kg, 167.64 cm)kk309/2822:31 Pain Scale: Humgflh2VO Course:03/2822:27 Patient arrived in ED.kk322:27 NONE, - Per Patient is Private Physician.kk322:30 Triage completed.kk322:39 Ratna Barbosa, JOSE LUIS is Primary Nurse.kk322:45 Zeeshan Grover MD is Attending Physician.br23:59 Primary Nurse role handed off by Ratna Barbosa RNjw523:59 Fortunato Mark RN is Primary Nurse.jw509/2900:00 Patient has correct armband on for positive identification. Bed in lowposition. Sitter jw5at bedside.00:00 No Physician assisted procedures completed.jw502:19 Sitter at bedside.jw503:49 Sitter at bedside.jw505:06 Sitter at bedside.jw506:34 Sitter at bedside.jw506:50 Attending Physician role handed off by Zeesahn Grover, DGme339:50 Santiago Rajan MD is Attending Physician.rf206:59 Attending Physician role handed off by Santiago Rajan MDbr06:59 Zeeshan Grover MD is Attending Physician.br07:22 Attending Physician role handed off by Zeeshan Grover MDrf207:22 Santiago Rajan MD is Attending Physician.rf212:48 Brooklyn Oneill MD is Hospitalizing Provider.rf214:54 Primary Nurse role handed off by Fortunato Mark RNOSjv3Nowonvjuiiee Medications:08:37 Drug: sertraline 50 mg [sertraline 50 mg tablet (1 tabs)] Route: PO;sw215:21 Follow up: Response: No adverse :37 Drug: Topiramate 75 mg [topiramate 25 mg tablet (3 tabs)] Route: PO;sw215:21 Follow up: Response: No adverse koeqroddol566:38 Drug: ARIPiprazole 10 mg [aripiprazole 10 mg tablet (1 tabs)] Route: PO;sw215:22 Follow up: Response: No adverse snzorlpimx369:38 Drug: Loratadine 10 mg [loratadine 10 mg tablet (1 tabs)] Route: PO;sw215:21 Follow up: Response: No adverse drfcciopsb892:38 Drug: Montelukast 10 mg Route: PO;sw215:21 Follow up: Response: No adverse esbqgkfynk786:38 Drug: Propranolol 10 mg [propranolol 10 mg tablet (1 tabs)] Route: PO;sw215:21 Follow up: Response: No adverse ormctmkeow0Jpepboq:12:49 Decision to Hospitalize by Provider.rf215:22 Disposition: Admitted to Psych accompanied by nurse, with chart.ef115:22 Condition: stable, Provider notified of abnormal vital signs.15:22 Discharge instructions given to patient, Instructed on need for admit,Demonstratedunderstanding of instructions.15:22 Discharge Assessment: Patient verbalized understanding of dispositioninstructions.Patient able16:09 Patient left the ED.dx0Hllqlghdon:Fortunato Mark, RN RN cn7QxqushsfAmi arthur RN RN jt1IwekmhjpqAgatha chapa RN RN gs0AazunzkZeeshan Grover MD MD brKelly, Krista, RN RN nc3LidsxqtzUsha alberto8WeOlivia jurado RN RN ig7XsiisSantiago betts MD MD yk4Tujgmcqhmzh: (The following items were deleted from the chart)01:16 04/08 22:33 Home Meds: Lexapro 10 mg Oral tablet 1 tab nightly; li8mh079/2905:17 05:14 Patient reports history of anxiety, Bipolar Disorder, Depression,self sm8-mutilation, Other: [employer]. Mental Health Admissions: several. pt was last at [facility]04/01/21and discharged 04/03 Current Outpatient Mental Health Services: Psychiatrist /Agency:[facility]. Living Environment: Family / Home Support: poor [facility]. The [facility] is [facility]. Detox / Rehab Admissions: None. CurrentOutptAlcohol or Substance Abuse S ervices: None. sm8 Name Value Range Interpretation Code Description [facility] Document(s) ID Date Data Source [id number] 04/08/2021 08:32:18 AM EDT [facility] Name Value Range Interpretation Code Description Data Stephanie rce(s) Supporting Document(s) ED Provider Note [facility] STYEXn7iSiUEGaRm10/LKRssJWAwg8EoJJgvDXe9JIdfSELkE6RlHXX0yA6yIEV6JNqDLyMxJtMfXTI4 [facility] [file] == ID Date Data Source [id number] 04/08/2021 08:24:44 AM EDT [facility] Name Value Range Interpretation Code Description Data Stephanie rce(s) Supporting Document(s) Discharge Summary [facility] BHTCUd8oShFSLvDk09/OVNwbLLVsv9VnURgsUAp0KQhwIBKsR8ZlTYE7dE9mYCF3EPvQKzLcHdHvOFD9 lbm [file] irwwWTI4Ut/peñaloza/UzhIAmyeQ8fEB0jP8a6pdgSA2EE45HK8LpmQKOcfysNhqjSh9N93TeiBt3qwIqRmB2 [file] AgICAgICAgICAgICAgICAgICAgICAgICAgICAgICAgICAgICAgICAgICAgICAgICAgICAgICAgICAgIC AgICAgICAgICAgICAgICAgICAgICAgICAgICAgDQogICAgICAgICAgICAgICAgICAgICAgICAgICAgIC AgICAgICAgICAgICAgICAgICAgICAgICAgICAgICAg ICAgICAgICAgICAgICAgICAgICAgICAgICAgICAgICAgICAgICAgDQogICAgICAgICAgICAgICAgICAg ICAgICAgICAgICAgICAgICAgICAgICAgICAgICAgICAgICAgICAgICAgICAgICAgICAgICAgICAgICAg ICAgICAgICAgICAgICAgICAgICAgDQogICAgICAgIC AgICAgICAgICAgICAgICAgICAgICAgICAgICAgICAgICAgICAgICAgICAgICAgICAgICAgICAgICAgIC AgICAgICAgICAgICAgICAgICAgICAgICAgICAgICAgDQogICAgICAgICAgICAgICAgICAgICAgICAgIC AgICAgICAgICAgICAgICAgICAgICAgICAgICAgICAg ICAgICAgICAgICAgICAgICAgICAgICAgICAgICAgICAgICAgICAgICAgDQogICAgICAgICAgICAgICAg ICAgICAgICAgICAgICAgICAgICAgICAgICAgICAgICAgICAgICAgICAgICAgICAgICAgICAgICAgICAg ICAgICAgICAgICAgICAgICAgICAgICAgDQogICAgIC AgICAgICAgICAgICAgICAgICAgICAgICAgICAgICAgICAgICAgICAgICAgICAgICAgICAgICAgICAgIC AgICAgICAgICAgICAgICAgICAgICAgICAgICAgICAgICAgDQogICAgICAgICAgICAgICAgICAgICAgIC AgICAgICAgICAgICAgICAgICAgICAgICAgICAgICAg ICAgICAgICAgICAgICAgICAgICAgICAgICAgICAgICAgICAgICAgICAgICAgDQogICAgICAgICAgICAg ICAgICAgICAgICAgICAgICAgICAgICAgICAgICAgICAgICAgICAgICAgICAgICAgICAgICAgICAgICAg ICAgICAgICAgICAgICAgICAgICAgICAgICAgDQogIC AgICAgICAgICAgICAgICAgICAgICAgICAgICAgICAgICAgICAgICAgICAgICAgICAgICAgICAgICAgIC NqYNWkZEAzIKTcZRSvYFTjAKFuQLHdGBJpRXCgHLCqFYYcVMWgXVo2V7xzVPFnPPIvKG5iCUv4Kj6+DQ ySFxIhRFL8ejOcdM7GTO7ep0CvTJbtQLKum5GcAPo6 NC3SUHWpRNerPV6YUImxmq9LAMEkDFHdcNWHj9mfQyByIEM3QCLuHvlqNV4IZKZeH5xifkRdRIVmJWHQ GKvnBCMFXGdsLRUMPQGsBBKwHfMiWeAlJFPoNZNgPIYOXPL6QBGrUbXaYWEeALTgWeWfSFTOZDVeKPHw EhXuDTSoUPPkOysqIGAUFGV7KLErLcLuKWLoCVNcIA 7XVHIeR045apGnVPSWDq2+DBosbiObTdqGEqCxGPNqu5ZlCQe5ZF4GRUYzAouwa5DaGhSfFNFXRWvsWT 5WCLH0XMUcVVUtHv1RWGXqM072ioYbEY1IEb2LLdXtOG8ihc6DGeYmAFToFvbFDix2QPzjET5HaWKqMH pKeYNimQJuA6SqX0EurNEbtCUueGYCIB6fgcATUQ6x S40aIVZBYXYapRZ0NhT7UdSwBqVaUBM5GeBiHH6iHCllJG0VRDX3GTqqROZzDAKmY0qDKtCgONUyGQWn lPmrIG4VRlPkL3JrarQlrUO9WxBnPITKZc8+BHznjkLmSjuTTdI6QVQwv6XgZGp3QU1FPIHpEJpvJA1T IBAjdM1dGAnuGT0ULkM3OMVdEGJZZyFsB69ddDFqGU g3P7ZcLjGpCJMuLhnrCGDmZSnwTiLgTVKnZpFgYRrsDP5+ID4+OUhgNT8WCLucjyAwYVBgXu7YWSJjIE JrCF1wIBUnRWEeN2C4rQjpTBNPSwYdX0clmfgfGB7xGHQtP900hHitxlCtWSCjNQNkVc3RMJEfUCA6GO NzcFMxHvUkFMLJGTbwYL8ObODrETU1xD5qIQthHZPc AZKfM2yZYkGkaQchHY17wDjlvdEjdHSaYSv+Bn8LLW5zx0RtBTt4bgIlESfoHIA5SOrrASRdXEGdBPAj BLI8WFE1XGBXIiJsBWGeFPExGFmgYBSqUYXijq9HWAMtUAH4ENqzASWaEPJqAGDpJXneOSWhMAhbZyOh ZZHiGPDlVS2GOlVtZLRxDTVdGBdyCOVbQOSkdi5VDT SzJMZvAHKjGfBvJGDtJWMxULqjSVOzQIX0OUYjQPTiNURaSY8PAaNvBGLeNSq4BQVxVOTmZWGenm8RZX JoUULwYqkcDHIuRGXmDMYhNHqcGOIjKKDhQYE9JCRqIMQdGJ6RZvQfSAEhGKXxGTSfKPUvWHKdpv3RVV MaRLZkObL1XoXoRLNaSQEzGJezHGMlGVRxDWs6TGDi SCXmLD4SImKhXPOkJAP9LfGiMSUuTBUrar1RQLEhBTFxWmThMtNqLUQmVCPhTSvvMDLbVQL3WvB5ZDGw EEJvOB2GByVrGKFxVJf7QlWbKFBkNWMxyr6DTRPpQZPjPEH5YDMbNBTwVKAmNKfaROYwKSAzWRW8MRHp JCZqMP8SZcPoFNEnTbMgKPViLRKcIWAfag8IJFSsTJ VdBDO5TpKfMTDtBBFiGNebYHZyUZQ1CaP6LCWeOTKbGX3NKuMkRKXySze9HOBfEOBiBCWeed0DPEGmWH OeCpQmFgUnSYTnKQWxGVbnAGZvOHOcYvC0OSWeSQSlKX8JRsXuKNUfNoV0OlEmNBYtNDZtkk1XRTDrET XhCwY7EcEoDTCgHSXcDGyfAILaDCJnVlPrFHNkYKUe PE1DJwZsYVIrORS6EbdsULEhJDQtco4RWLHoOBQ3EtZ5NuJkHRBvKDPvHSwvXIJgGEXvSzW1OTZqBUYc PO0BBjSyZSDzFKT2YHhxKNPmVVRilq6OECXyCPB4ZCY3GYRrTUEjTFOuOEfwUTYgUMK3NxQ0XQRpLUUq NL5BJaEuFTVeEEK6UUSyQQKyARRfgg1DTGHmPGE3BW v5DNZiBLXdGOEiEAwcUXUjTLH6VPGhFSIxOSGnJC5DMmEdZKJjFPecSVOgIDMqILHdyt0FVMMzNYY7Ip X1FtImRCGnRPOhHBbrQKOuNSX1SeNvNGQkQKGsUD7RAuRuTYKxUJj4FFDnUSMgCPLlvk4UDDRyLXB0MB U4EkAgWNJbFYHgFEhoEQTiVLW2RmSlBQHfMVEbRM1F MvRsNFHmZKg0NTqlOCVoDBWbro9JLGXnSHW9EKCkCiPlGMGkMJNxULceTZLjRBYpFKmrPIRlEUZtYV0F YrRnCCWbILFyLTYvMIDfTLXewj9ERLFaYPM0HOQ3KpFeCEZnSMGfAMiaEHWbABPoZpD3DJWtDXRdXL2M BlFlKJPxHWR6PYSqHOVlSJUqno5BATLaGUL3Ejo7XY KhYAPlDPSdPPexZXRdPIX1SSa8STVuVQKkXG3ZHjZrUDNzZjN8OHIhHEAqBXWzyj4HIJErYXV7AKeqZZ ZeYGQyKAFfJIgiHLSlFWQ4JCgjOFIxLBDyPE8LEeCcIKQeJfHtXQCpZFNbQOJwcs8CVRMxMZC1QCv6Ao ZxRNZdWHJmJQoxGRLxJWqsNyscPVVqCZJbRS8AJhOe RLPlVfU7CDTpWFEnEIMcvg0TZDGvQES3IKu3HqEbSBCeFMMyNBaxPBYgGBxmDNe9QFXeRDZeBT4JGtFw RBJzKlKtHpTfPRHaTIHydg5DZXNeYGD5Ifv9ZHLkTGCsRQIzCQloKRJaPCazJCT8QVQmXGTdJS1TSfJo NJHoKoTiQjGhWVZkVUBzqp3SyRKrgCpxst6GPNzLJw 6HsNapCZB4GOjoIf1nqCD7ZCStLRTJGr9XiiWqTAIgSNEOHHyiPTCiWQNeGjF4GdEnYJSnAqLbBya1IK J5XWJ8CIqqYZk9EBxtZaC9WZDgHlocSqR8QSMoZIYwDfjvHTXtFVn6LBEjNzDxYtG+GM1dHXk+Pg0Kc3 GlsiI7goSwPVl5YiF5CE3BZNHVM6CAQm== ID Date Data Source [id number] 04/08/2021 08:11:12 AM EDT [facility] Name Value Range Interpretation Code Description Data Stephanie rce(s) Supporting Document(s) Consultation [place] 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 [file] ICAgICAgICAgICAgICAgICAgICAgICAgICAgICAgICAgICAgICAgICAgICAgICAgICAgICAgICAgICAg ICAgICAgICAgICAgICAgICAgDQogICAgICAgICAgIC AgICAgICAgICAgICAgICAgICAgICAgICAgICAgICAgICAgICAgICAgICAgICAgICAgICAgICAgICAgIC AgICAgICAgICAgICAgICAgICAgICAgICAgICAgDQogICAgICAgICAgICAgICAgICAgICAgICAgICAgIC AgICAgICAgICAgICAgICAgICAgICAgICAgICAgICAg ICAgICAgICAgICAgICAgICAgICAgICAgICAgICAgICAgICAgICAgDQogICAgICAgICAgICAgICAgICAg ICAgICAgICAgICAgICAgICAgICAgICAgICAgICAgICAgICAgICAgICAgICAgICAgICAgICAgICAgICAg ICAgICAgICAgICAgICAgICAgICAgDQogICAgICAgIC AgICAgICAgICAgICAgICAgICAgICAgICAgICAgICAgICAgICAgICAgICAgICAgICAgICAgICAgICAgIC AgICAgICAgICAgICAgICAgICAgICAgICAgICAgICAgDQogICAgICAgICAgICAgICAgICAgICAgICAgIC AgICAgICAgICAgICAgICAgICAgICAgICAgICAgICAg ICAgICAgICAgICAgICAgICAgICAgICAgICAgICAgICAgICAgICAgICAgDQogICAgICAgICAgICAgICAg ICAgICAgICAgICAgICAgICAgICAgICAgICAgICAgICAgICAgICAgICAgICAgICAgICAgICAgICAgICAg ICAgICAgICAgICAgICAgICAgICAgICAgDQogICAgIC AgICAgICAgICAgICAgICAgICAgICAgICAgICAgICAgICAgICAgICAgICAgICAgICAgICAgICAgICAgIC AgICAgICAgICAgICAgICAgICAgICAgICAgICAgICAgICAgDQogICAgICAgICAgICAgICAgICAgICAgIC AgICAgICAgICAgICAgICAgICAgICAgICAgICAgICAg ICAgICAgICAgICAgICAgICAgICAgICAgICAgICAgICAgICAgICAgICAgICAgDQogICAgICAgICAgICAg ICAgICAgICAgICAgICAgICAgICAgICAgICAgICAgICAgICAgICAgICAgICAgICAgICAgICAgICAgICAg ZBOcLTKlDKXxVMVfIZIvUSBjFWHsPCRwEMGjPPp7X4 hfBHDnLKAwHR3kWTz4Ph4+LAhOMtVtIID6daYgnL6IZI0fm1TmLVlmKIBbi1FnRPs9PU3JDMTqVWzcTW 3JMMrrjt7DKFOpXGEsfHUAy4eiDfJpIRM9INWfMwfkUE1TCUZjK7hepxYnYHCwJAZXRGvnRGLVICzxRY XQADSdSGWfHlFpTfFjKYAxUHTwCFNANEY8UZLmCeWq DCBgAAFaAlWvEXEBZOZpPHSxFeRiGQTcXKXbFlbbRZOVCH7JAoBnM4OsrR60LMTqRTi+Qw2FZK7vw4Jo QDv0JpRsAZ8lvf4FQEnQBrUwK2ZiucW8LSC7ZPOkWm8YINBtBZNcjQP6AJVzGTGYOtZeE1WzwS04KTFM Cj4+UUwmbvHvUbkVEuZ6BLRci3RvIWw7JP9ZVRTrKK u8aVXmK47ex1KihQMaBnkqS0vavVA6a2RqZARmGoTZIT2bEG0lFKCZAhJzpTS1LvV8DzCpEyOxMAS8CD avDS7vUFycLO3PFKU3XTzdUVBtQUBsQ2iRPaSrKPYzOBVrlNnmGT6KIkHlP7BpjxQhdUA6XaKcEQBDCl 4+SCncoiBkMbzAUbN3KYPnv0DiTNz5PV9XKINeLSvb LX1CEYLqsA5xIMbxEG8QUpP6HAXtWRCZObHpF45dsXPtDDr1F1XaIyLwQNEnNtpsVPEqZYeeJiIvIOVv WyBdDQogID4+ID4+VMstZW7UXFszqhHpEFGkEo0FPOCpKXEyKA3jVCBhIMJxY6W9jIawNPZROxRyZ3wi anbpVU0kJKKjM374hQllanToZWIuGLAhJu8QLPArIE Q3RLUeqONtWgZzNDGWANkcBU8SzFBfZDL1lF4yBKnsEHGrIKNqL5nYLhIcyGhdEO18mWcwpqKmbYKrNZ o+Bs0IOM0ik5WgTJj1jdQqUYgpMWJ1LMlwNXWeOYNpZMSbJHO2ISB2CMZZYgWxICAfTHVeFMwbCCOmDH Udtg6EYGDrBHP3HMIoEFEaKGMuUUWgSRdiKUXtZQr4 RRT0HPPmBVNgGR7CUsPmVPUnSIEtZAclPJKjQJSwim0YMPVvABHtLpbvAaGyNLDpJCCxVRkuPDAbKTY3 CVF5IROkHMWmAS5WLkJkKYFaGXl8KTEgJDDfLDDjue4MPVEcZFEpXjrqJVBoXMYwRZMpLIqnJMZeEHXu WAh5FPDpKYUnZU7SWkRnPDVtHEBoNYFyNYNbNRAtrm 0LORKwMLOeKCP2ZHWiUNWrZIYlPNdsLVRqYWY1PcB8GQRvCXMkPU5WFwKpMYPeVGJgSVSySXDgMUGuvg 9AICVsAFNiPgEwKwTrGSKyHAUgMRyiHLTlGBG7NbF7NKTvZVUfGA6TDwLtMZJmIVq2KmKjPYSsNHEgoa 6LEKDkRBAeJXp8NzDyCQLcGUTkGOinEJLnHPSmRRv8 ZTOcZKOzVB4HDdByASWxZkN8FmBqXTTtLSWmqf2SDUDtMOOgXUV4GjLyXMGdPZOdPPkePISpEBJ5EzY4 SYJqPDXuWQ4BUdAqXCRrBml4XiFgLEAqDDPhco9GPMCrIAPxZIyaJRQuFEZpAGVtDZxqHXIlFWJmQJJ1 VUDyMVHgZC2XBrLmRTCePsPiGxiyPBLqXHNygz7TIP TdFRWeBqKrILKuRGVpYQTrIOysEXNkHQO4Mwz1UPKlMPEnFU2FPzMaEBQqXpp6QLLfYYMfXCMbaz5IDB KvLGYvDXy9YfNnZBIbUHIqHPgvUHStIPV5YSZcBLYcAVOqWE9GHbBcAQRoKikcCzCaCEUuVPJyxl5NXF HeWAY9MAK4TlJnLREuUIOoMGlvJCQcODEmCNc9JBIa TBGgGJ0RJfWdSIGtQOC0GUKjBFTiXXVefs2MRAUmIVT7IRJ9BgRjZOAkSUPnYUauRJDiZXZcUJH7TXSk CPPeUZ1FIoNdKJToBMWgXpVtDKMiZNOitk4HHDXtITM1Jvk3OVOuFHVkXLGsGOqdNYBdEMGzXBcuGBYx QDNzMH3YNzSjEZTlRONmILZhRCIjVKUdbb3HDGBdNY V2IOA6CBHuIUJhZXEeJQqyQGTrEXX9AOH5HQUqSTKcSW6PVbJoSQAvFHP6VwrbMLQiVYHqqz5LRQMtEM K6KOKqXHNkGDUaJINcQMifDFQdKCP8NEF2DCNpIYBpNR2NIeIbCQEvIyh5ELSqJGUbWOEpvm2KGEJpET V9IRUeUHJoUCMcKHMlDRqgRLDyGOmcWImiMRViSMNw PK7COmRvTOTbClXfEdOhLAZiNTTypp1GUGYgKTV5DTT1NSOtLAKcGUUjYHnoHGLpWWy7HYw4UCLqVBUs VN3XEyNgIDAxYfRsTeRfBVQmPQPmay6BPGKbRGW1HkM6FiSmLPVxRPCmRAnzRHIoZHi4EDh3OKFqVWRi NN4AItRmXGQfXwI2ClPqOLXrDLBemt7MNAEwMCF9Jb s0BGGzKQQxMPNdQHopPVDuDAy2UVX5OVIaFMSiIR5BJhXjIDBwHXL9VdVcMQKwDUXxdz2XEHByLWA8VF v6PeYtOBFfJBXbBPddAGYaYZh7JJR9WTCdJEEhOS3TYhDmMLQtPHA3IZseQREsMFJxrg5RHSPlWDM7Tw IdWWNtQRHrIJSzPHqxRBGmSAr1BoP9WQKnYZAoSM5P FcOzCUSiPWi2ZLbuCTXwEEDftb7WEQGhRRE2Dxf5KOGpUBTwQAMjRMv8vcFqgNCzONd2NJ3UP0PafoHh MgCLSg7Xj367VAF1VNZiLh7XJ5bzWm1pLPByRVJPJn7FUAm1LSTmFUQ4DQH7BWJiVqHhAdoiVHV3AIz4 MTVlODRmZjE+XBw7VBJ7DRReTof9GhWfMaWjBUSaDX f7STNcGBC1DCKxXQ6oFKEYRl9+LSqwvDPfcMgmTFTFKbl4BJbzDAmgUQMODq3Q ID Date Data Source [id number] 04/07/2021 10:13:17 AM EDT [facility] Name Value Range Interpretation Code Description Data Stephanie rce(s) Supporting Document(s) Consultation [facility] KBVMOf1tGqYMMgSr90/VSToyCAFwi6SrVLdzTUs3EKjpFCIyD2RvHDR4zD9vXDZ6MLrOLpSsMrEmSFK8 lbm [file] MYJ3VrI2BGQ1FJh0U5CyYECdMFFhQeFlPG6UIs9FMhG4RVE6mHYuVr7DFaW7PEyFLiDwKA7CTDt= ID Date Data Source [id number] 04/07/2021 08:19:33 AM EDT [facility] Name Value Range Interpretation Code Description Data Stephanie rce(s) Supporting Document(s) History and Physical [facility] UITOLk3tWdYTTaZx74/FHErzOXUkc9EfYGxrWPv3GKixSQQuZ2IsRTZ4hL4xOYE8QGjMKgEnFwWdOGJ3 lbm PyMqlODkSaTVEbRioZPpLpHGntDbhnnJVbUK8VcLO3SJDsL64nKTMsYAIfF4VmNTV5ILp+Xr0NDBPmmC FpFT7TIfeJ8S2am6nVOn0+wP2HRQ/otUFic/m2pL+gbaO0zJJZHiAZhRhFgr33dwFdznnph8tkxpB8XM VT+eWQToaaoX7Iz2PpaHoakY+BGDa750t0ExJF68Lq 3+nxMA25WhV//CvhFei33UEWM2ZGieI6Wo0CM4L/A/1hB50yjH9IknukbkWIQyhtcwpLg0AcLkYROle/ qsEvSodhNpKBdwWodQH+QuN3Fvr3dBRJWXuyLlHRHGDKDoYCmWsuuP0NKnhF23RgK1pZYW7mDESjPT/7 rF271SNREFdsjPi9p0e1ZPGNsnHwpGVSGSHBuvRDG/ 2Yw92B+nlj/zCdsAfOZE4aauIa1cZJY3fQNlTqnWeWxMaEynrp9+uvcGu/KeadNDB+tJ7spqpPuer7xe zgr5c23K6VaPp+OZpmWaSRvxzUBUu7cT1N1SCUc/6b3GpGEmEpGAwbY1WJnCj1qL4rqVojp+HTda4MSV QTAdHzwqOe7ba6hVfdZdtswVtWnZbB4IaZ26AxvpK7 t70gWZGlM0ITSq4PL0aGDzpQmZtRiH/+V97yZWwuaaL/Hk+HV0L6+CXfbxgZZuPqvHxsQxnX3oal9ZBQ Mt2MJ12k1UvVt8bwIOLgwZ34VdGa4QoU44x3OeP5QM60ZrO8ij3w/yRvrfJS77aaBTuvhpdxnjY/c/L+ Q/es131/bwcjyV3lyTB4baqrmBtONxGhP3mAcg3tPg gvpFO5p+z/vav4d7uEwSgLnVbrnE1QQxuau0IuXbl0DaBEoar3+CoDkIuGxbkmJpjfkf50mOPMJX7Ftw N4PyF0ovGllOxxsNY4U37YSSGgwSVVUFIgCJ0I0rcRLBTW1+I0lSEnNXMFDuo+WYkH63zavz5igsjsWV KgK2agys1x8x8CbjtlwqKtahE9yrjjNzLYcfCfnxu0 [file] ICAgICAgICAgICAgICAgICAgICAgICAgICAgICAgICAgICAgICAgICAgICAgICAgICAgICAgICAgICAg ICAgICAgICAgICAgICAgICAgICAgICAgICAgICAgICAgICAgICANCiAgICAgICAgICAgICAgICAgICAg ICAgICAgICAgICAgICAgICAgICAgICAgICAgICAgIC AgICAgICAgICAgICAgICAgICAgICAgICAgICAgICAgICAgICAgICAgICAgICAgICANCiAgICAgICAgIC AgICAgICAgICAgICAgICAgICAgICAgICAgICAgICAgICAgICAgICAgICAgICAgICAgICAgICAgICAgIC AgICAgICAgICAgICAgICAgICAgICAgICAgICAgICAN CiAgICAgICAgICAgICAgICAgICAgICAgICAgICAgICAgICAgICAgICAgICAgICAgICAgICAgICAgICAg ICAgICAgICAgICAgICAgICAgICAgICAgICAgICAgICAgICAgICAgICANCiAgICAgICAgICAgICAgICAg ICAgICAgICAgICAgICAgICAgICAgICAgICAgICAgIC AgICAgICAgICAgICAgICAgICAgICAgICAgICAgICAgICAgICAgICAgICAgICAgICAgICANCiAgICAgIC AgICAgICAgICAgICAgICAgICAgICAgICAgICAgICAgICAgICAgICAgICAgICAgICAgICAgICAgICAgIC AgICAgICAgICAgICAgICAgICAgICAgICAgICAgICAg ICANCiAgICAgICAgICAgICAgICAgICAgICAgICAgICAgICAgICAgICAgICAgICAgICAgICAgICAgICAg ICAgICAgICAgICAgICAgICAgICAgICAgICAgICAgICAgICAgICAgICAgICANCiAgICAgICAgICAgICAg ICAgICAgICAgICAgICAgICAgICAgICAgICAgICAgIC AgICAgICAgICAgICAgICAgICAgICAgICAgICAgICAgICAgICAgICAgICAgICAgICAgICAgICANCiAgIC AgICAgICAgICAgICAgICAgICAgICAgICAgICAgICAgICAgICAgICAgICAgICAgICAgICAgICAgICAgIC AgICAgICAgICAgICAgICAgICAgICAgICAgICAgICAg ICAgICANCiAgICAgICAgICAgICAgICAgICAgICAgICAgICAgICAgICAgICAgICAgICAgICAgICAgICAg ICAgICAgICAgICAgICAgICAgICAgICAgICAgICAgICAgICAgICAgICAgICAgICANCjw/kPAfE0cdnATq zbE2W9svTz5SGo8LAB0rm3OaHLLgQQnhckUwEgeRPp KlQGCbEpmGZom6STinIY1PaKEqQ0GiI9IuRFdvBR1RUNQtOMVbmWWbANLnHGLiCcS4LNHjXOpySA5KeX PvCByxMBKlCYTmAiPzMJOdDKFnQEQyDAUaLXUPVQElLKCnTfLiJLVjASJxQKtnWDVHUWE4AVCbWvAlHE GeZESgXpBoBHPPEIZ8TLZvRwGbEyNiGJEnGQ9QCDDm Y926waMdKYRJEe3+ZOosfmFxMvuSZyAkGMYbj0BxHRd6VU7DXSGhPfrpy9BlOhTtURZOIFhpPU2TSNP7 BET5IEBmPa4MOTLwT973chZqPN7AFi2AGoEwXC1zpr5GFtJaPCXtJelZXwi1YXqySK9JjYRwQNsSCqBc SrkqK1yhaRL6h1CsTFRlRfDFUF5oZN4wBLFIHfRyhO W0UfD1VoRgKaQcPSO7LmhgQS4rQSgzLD9QSSF2IVxjIYSkVYCeO3tWVtViNYUxCQPkuFdaXW9NOrZjD6 LnmoCpzDG1LgZgPZBVQu0+LOeyhbYfNkjFUkQ5QTVrj5EoYEx2XO9XNMOnVTskJU3RJLLwlI7hNOagFV 4BOkW5STAzAWOUYoFsB66ynMFuZZy2D9DrCaTkNUUe RmlsZXMgPDwvTmFtZXMgWyBdDQogID4+ID4+VWmhCT8QRXkirkFkSOIeJb2KKXVhFKMtKF5nUWSbTBTw W2X7hIxmJFNBJxDaY6pdyhsqAY1yZWEeN292kDvkcqZtFNMvTDIxBi5FIPTvYXR9JGBwlXHrRpTnOXFU EFcvIP2ZiCTvXZS8eC0uNRdhFWJzNFJuA2qQAtYsaI rgCO58oCnyzrBhvIOpBPu+Sl3XUE0ca4KeIUq4bcQoYSbiARQ2ADgdBOJaISWlYMLaEUL6HZP0EMYJNo OuVPQwAHKiBUbqBNLyEHFypr6PQUQnIYW8OffsAmGgSJYvOHAkRJciHLEaFSz9BLH3VQXsUHOcMJ2NTf ArJUNeWDZhXZgrHNOjWQYkaf7CMTDpELLqRah3VfWo MNZmEKZiWPyvLREvAAH5LRxnYKEoKDAeBP9UFtYwHZDuAHj0JLCuXIRlTOFsfv5BRRYzSZTkLhabVERt XPRxFFZcGBfwDUOoIOStKjIxXQZvJQHnAS1AKeTxBSYiSZN0FSBoWGNzCVJacv0DFUMcEGJwRNV5EGPw YVRaHLWmLOgcVQItIKS1OlR2QAVcIAEmGX0ACjVxZO HxBEqvSfreMGDjTBNsjw4STLNxKENaQaW9TNUoZTBlBQAwCUlwDJIhPVB3Sag2ZFQgJFCdEL1ZJlBaQQ HbOPu6EOUgFREzLUTywr1QHEHwTAUxPjIoEMEdAWSxJSTcCPzaKTFcZNIwIjQuJRMfCSHmMF7HByNyKW LgDaM7EIOpRPHeKQSwys2WRWIuFULtPGO5GqWsONRe CCQoNCvpNHWqWYO9XBM3LSYrCWJzML6QQmHoYYVaLxlkLTRuVMLjXMYaqu6ZZJXuVFFjCnE5JICnAJZa PJOzEKqrUSHiPDUsQLJxOUKoZJEbND7OCiMrDWPmZgE1EQFbXGErOMYraw3GDGYgNUUvWrAbLPIeRPIf OMQbJRikNQQyZWF6Xbi7FAZiHCLtOR0PJxVtBZKkKp r0BVLsTIBeJRBdnx6IDNSbLFF3FAw8EOHuFTRjQWGjBZlmZPSsGACmOLNnSAPfXUYvTZ3GFkSwVXQtJO RgXZPfIAZzOYGlrw0PTCLbIQH1CcWfSzViTWGwBEEtJCtnQQTpMFJwBWU5RHFwGVSkAN7RYfZmGTAeOJ V1AVRjWLExAFLnca9REVXwEMT8CiL1FfGsVCAkKCOl HLytVHDrVAQfJjIdQSIoTXXhUN5HDrLgSZOeMBO9TkUlBJPcZBTqjd1TEOSoQFS5VEp7ItNtHEMzBKXw LUtsTWWiRYA3YBVxDNMnEUCgBF5LCfWmPAPoUWYlRXCzJLHfTBHkqk5ISKHnOKD8MgK0NuKxVZVnBYZz QUkuVGVnQCU2ZOAeQVHyZBIrBQ1OPkBlMUTkXYU9ZX CeLYLtYLMvor5SNOJxDWC3LGS4HXTfTWFpCBJzNJrgLDDkPPP1BTDbDXTaXHUtAZ8GXcVmVSRwKDl7Bo HsTRViUWPuyl7BKIYvUTG8ZMs1AJNjBKZkTKMhUOveCDBqKSL9DBZ6LABbPMKaZF0CHlLsSJVuZpR4Dv VfJIOkIXZlpm4QONIeQXU9NLD1KVNtBNArZZGlHXwh AXViEWA7CDFqHUIaNUEjNX5LFaSeJNAyGeO7AEEuCNZbDDFocm6DACFzLKK1ZJc7XCWiHMOzVUAxGGav TWZaIDK7DGS9CAMiVVJhPW7SVqRxWCNdOmDnQBOjRYZxVKIhzk8ZQJQsJIP6NQAwUATvFPDxCMJrGYiq KHOcVDn6Yje4KNClPJRlTL0NUaUbKGPbYpubYOLgNH KnYETixo9OSCLeBGR6GsJfCLWzDPOoCVHxLXtoIKBkAYa9VUC2PZPbJMEsHG6ETyEjNWCpDls4QJMmJI XvYILazj5XOWEeLJJ3WWG8VxTlNFXaPNGtHMbmHRSgYKo3FsKpOPAtUFDwTB3MQeQpJFQlLav8ZPJvBY QkPMRjvw4ELEMaTXY8EXgcRcYuVVWxRAMrVZy6ztDi ePIxXCw0OU4MG7MksoYfGgCFXv6Ft847LXV7TCHqYb4GR9qoDw2cKOLcERAWQt4GGWk7SuKvBFYqZzJo VbCsSAIxHyt2ZjnkEQF4NsM7YaB2QSB+YJg1A8J9WyHcOVFzV9O3YICnEmcrAjB3YblgKXuzHmNzBu5w XSANCj4+TAyfcSXxwNziOTHHRuzrWQyoZGcgDQPAAg8U ID Date Data Source [id number] 04/05/2021 08:52:29 AM EDT [facility] Name Value Range Interpretation Code Description Data Stephanie rce(s) Supporting Document(s) [facility] HPTMBw5lDkSNNtJck3UmWsDxENRkSB2sxpi8O2K1uFQkA4RerWEgd1niI6DhN7QkLTPzDJJVHL4SiCZp jb2 [file] LftwcIZ113prd9Fm07w7qz7oF3Rp13IRnQBccGt+Elijah GkLkTK39e8jjzVqa0iXZtMk9adfFqL4GLL2XM/RvadZv1LXKv+xN35X4odMi4MXYjr3bfA/1wbvVuG+s uh3R1EqIoDqG8HGVzdyJbjb21eUbw7J5BVQ6AIN+q3Xr418A06Ux0Q/Btd5Hrxd17ds3V65ez4i67Xyt bmpM97Q4i+gBk0OpNo2iJGlTYqy3X2zI8N8L2co73l 0Fdd9bDkB2bo01dUylum/a5iUXm8g9xNcNB5v6jvIfxN5csdp/EWv7JmWmFakyg20eYiPL2p/eq5s6UY 6t1qORvhdm8zjU0jGkVBwl+W4bGdqE6n6QDd11wpNI1t7rq9Ddvlq3kllurC0e2xTteklnXwCWe2+1C1 oafNK8xIsr5uMDCh9E4Xg5hKYNcKuNIr/Pqds7fhfx sTrFJDf0gAhMVu01vPwTX8qFXcy1kiO+0eUNXz/PWahB9G4l1x+7m6yu91P7TUPNnyppZX/KPg89sGFt 8/Zb8l4mx1x4lYQpnaGG1d5u5hRHI560JM9yy6+aSpR84gPo4dn/suxPyIa6zAp/lbmS3Pq3GvrTBoz3 8/FQEypF3IpXg7pN6uYN2oOgWS4a1Cqapp2BzqcWK1 7SBr+vPD0PtLworr+3k7dn8VSfUXF4gXtVDX3j3bpsjnCsjsuMKz00skSFCn63GG074UxcqvN1sL9mr6 LveojiVzVF2pP8sOYfLXvjAlB39/SYD28+4BctaBQ6bWq0bsSqJObm0uCj0nB+ib46f39Mure74wW96a M99hHa2QGqyN4m+R2yXv1x0kHunQghEul2lDB0DWsr 33p4i+XW41+e+G7N+P727VXs0kqYouj7c1k+HnXNyxu+Ei1+D2AqZB5mHu68XJZux4m0Eb/5Gk4oMFjO R9r28mzS2s6kd5MtUrWBag1x6CHc6Jii1wHywF327xPpDa70munzKeq/5TpsviXe/QSQV820OhelWctq Adz7KHg2T2H0v2N1n2ffQbrcynMXoJnydshkXqcfrb MwZc9nZoLnChKHEwPXZn2xmF3c9e03IV+axcOLpy/j6ct4+mPQkRu2e6nbnLkDGw+91MJylXHvVhmXap Yco2GWQ1a9cOogIQ8K5xwH4m7m9wWhd3s+1BlPe/L9vbmMBgnLx21H3L+8nijpv39gdTD815DQo23bU7 zL/NvS3hRqZvg9O5+7BvX4tIkUsCtl3LzIq5orVI47 9RWi8MQLouybMryFarR2vl1u+RelW21htjpj4vl/kZ9v9llG7503mUa6tFg6cIw3bPtogQtUiChlI3+4 foiR3sLCqN1Cljl6pF3qc+1N63Jmqxgh+G264blnru+2J77b/GT5oXN0aqkon7A0z+F/rX9tnJ2USF2n YKmb5qk8/I1HVtv2ony2wL+1Y0zhiB/wfuL9/Lx3tb sKnu/5o9Fx97gIkcKdW91FvJ3668AYnpx0vGAY/CuYqjvbwrAKImMb7wexzou/E/f4VX6cZd//uLq6g4 zTSKgPTAJzY2PNg3DuKnd/1/zManW77iiuCLIUwIDFn0+pvXbbO/Pzbe/PFyg07rc/1r0yYBWVrm3a0/ Ij8bba225f4/Mko0fwq35ia9bxN1+fnb53+j2N81mU 2VT+dl5ig8t+/qQ8rhzK7b+2Nz+v1ujz+/519m0Q8C9u7875606O3nuqeJhlk7V0+A80Y35kt2x32C+L 9mixf2f9+X/C909eGk1O1iflygB+7c3Y2+3Fz+4v3nZ/8bYHfT/o9/PT45D91njfk+3Vc/uLk+3Pb5ue 72/OdKJ1UJm+Plt+fn7b5/l50/XkPP14EewiizvL7X v+fn/68/WWrS7M57Z+n/M34tt96bV4YqyGg/ra62cAqb16x91atk+/QdT8CI7JhW+xzBmVc2XcBYC/9Q mK56D+G+P5J+sNb3zmLAs8dkl9bihZm+/2sJRpSroJ52ZsX0sbr46kZ/i6z7MMgp/noO/j+/1uVXypz5 OnvqU0sy7y4H7xhfmSO+l7o++Zfzh21rn74qSpNviG 22+eBPjnpkmAP2+MpEj76836X8N7/S0dugHp+s535kc8FwV8aqM9j51vFC6uruy+N/r15870HKDt07TF JUxnnUgQbKfGMr3Wn4/vj9/WZ25og2acu/pZQSL5WYRb7WMTXC+4lWGYybuJbvk2kT42A5RKrBmy7541 GWE1S45u+/5I+/vsX51/iJ17ur4Vfh/o+03lvPHqZj 2TZ3wJZ090HeEY5dsog3/sTGHoDaErS06+sO4x1XRNSEja2M7s8mfou9X4q/69+B7lPSis3MboaTyG0/ k93/dqk3Y7FhzQgk9CnjcXe48Pgmk51q+T/Gp+YK6sjieh9gS69kaC1a/6PT1fe/FcZY5T37vmj74u+e M4wDyo4g00U6/3Aj4Za6/+WNb9fJ/tlYmj00Czdslk 67O/39zxGdf+4ilzp3TeV/Wi0zanc5/x+hyog18CSAgfs65rj8qvW4jjvv/wa4l43lmge/748/HHn48v +n6/+PHHJ0/lq7mCsv8lwLm+lTGQ/Nr40TfhZkOjxQ12doejsozC7qu37garrca4+TXDvyRLUl9lme/0 zbT8y39y3Hz6GrGrYXzOeq/rrRcO+FX+Jl58gl+d/P eVd5f73wu7DdR/Ol+YagRmw9UiCkN3Dp/v4mIgxrom5G3br4eB9//ib8Fda50Mjp5//Zi4NA1k+v7Q90 Hfx/v+8qvvs3/7wtyRncw1YdF8/Cx6HY5A+v2k8n/cIG0Zk71h+8igK9H9/Ps+++deG3Q4ngnSOXY8d6 wvWrs46IeSZ0nbQ5/n3/ghm9Obw/KZ1QrWE3OmT6Xt 4I9f/T3v/XvJ5t93Tz++H/l5/L7P/vjjV3+fb2z8+NVu2R9//Sn4lEF35b+07Fv6rhL3o69e7G2c7q/V 84J3d6Hl8/ubbeDvs+Suh07jk0+qgb/P+o2kl1acw6okyt6/v900A9/n+8dss8Lw3401w1YSdV/0/Donald 7/O9z+nzV9NhkYqP0LpgpmQJsy0mqSq2gRE+Yqnn5y /kkzBPqWO5A28Ua/03kl/xWc9Thtion/YwyJ9Lv/pGgF/pG08r6F6U30r+X/T9pu/0I97vYMZzF63a5D 9oI1G311WshtUUn9C1Yvmr2sbFe49v5P70o3S9D1O4KO8wkn18Js/6qsA9k36u7Z1a0j60Z/X2wQkFdx /sh9do894uhpuij2n2/6Vw3B2x704hl8p4B//GfPw5 Ur/JsAmOC3K+pt9vqj+1l/AnZT6rXX3Xb+gCpC1H50Ikjgqxn657X7qgY82H+vjmA2r1F7/Gt81Ae6z8 hd7cJ3Qmx65ObK4v/6b9Ykir3vn5lfvChf/3+8PkEW2kNHh7b/hVJL/K8eryq+S3NwfA+/zx+SY3YvBx pR+SX6FMp/Lp+ikEg6Ox+Sa/wudD3x/3Jyl0g6qOih n0ZeGjVv6zqd4i5ToK5Mr4/kUaIovwavfV6jiiccHb6hbfk+AP2cg51LmDshL+TY9Np6Ggy898FEKwPT m8xF9pv/QAcMsqglZg45h6ceozDB3xDq/6092k95j0fjbiNN+bxqtN4/In24thCagy9npj+vce56/Peñaloza/ [file] 9fmJ/RozPMcjrz9RglZw+0L1doq8J87sU6k+Brionna/B2zYo1OmlLmHhBZYzvjON/rKHiXRR5daxZw94t5v Y/7mbg9JUxrUwkfisGElRe3fhTH77t8rN40d4l5Ywj Njsp7LmuAtp9df9f4AgLMiySRkY3Gp1GmyTG0IyP272ynwL+b0+Dw/oU4U7sC9iq/c42zG27AnoYcCdZ jp68CNyirEo3oJuj/TzsB1PX6zz8S2LL1lB7RdIl20zc79EzKD0ijh6CgA1N3Z/SibIvqXrYu7gToLrE ZjL5xJnPDvg8aGR4XqvijKlgkTijHPB+N1cGm7UX2O m1h7nyQeBe1OhOcgzbmK1JvTCTadRt27VLwIPTtTDfVteAB+X0ghxi113l3pUTL2wyO+A1DfnmHVec3Q uTMSEYz36gUkV8u9riojrHXzUkJ8b+i70/a1bUCAQ/g8oIFMwqD6M2JdETMU1w6uN8tmPsp5Wg+maría/O [file] A4c3SGGuTFtyKY7xsqOkZGYwWhwzWr7kfNC0CNWuUptKDj3Fn9ZoirG9ngZwZtA6MTW2LpDhUI0E ID Date Data Source [id number] 04/05/2021 08:52:16 AM EDT [facility] Name Value Range Interpretation Code Description Data Stephanie rce(s) Supporting Document(s) [facility] ZWGCCv4aXdQNPjJue6EyOdKnXAKjQB4ttff4N3N5rJJxE9WglGNtn1riW5WoB0ThJGDlADUCTE7DzLYj jb2 [file] /u7//lh55z4Sl3w8bvvcVel4/X506i+tj8/ VCG8esnEze+QdqKOfP+moHPrvPVvCfP+flyq1OPD8uoXT9S6C3oIxIwPwoa92/y6fyKt0cwoGD09c/jK eai+p+aq85A5GxLiG8g0mlckpssIf89/S6DdDiOx/G5xxxwhcLKlmOegl5t2wkV/9c9vv306a8l9v/u9 r3O/vbKV02r/sjuz91EsbP3J8OoPE2FgxuczM0r1iu nfer/6QvpOWeu31SB/K53qv/U76HrQ/wYkic4dIH4w3kQdaOhME4Z5+nohw6Q14zXP8LqPa0/7bb53U7 bFsh6tcr0vqmOsLlLu81hUaY/Py1clKD4Bh1/FX3bFChCrcyVottJDZVh0TB7PGNe/J12fdP+idNbXH2 /Wt3/PrjW7fxAV+hOihx5Zx7g80zPv676eXT/8zvri uiuTE7JbyW/p+zSmf48Ery8hkLJkag+sdq10gQhbCprq/B3dl29BmGFWcC/ILZvf51GFM790ec7d922Q wz/Sg70xwa1R/mAJXoSOuady75/2tOuVPLHK83BEwtiL4To5JqB/aA5d7301u47CvC+uT/t+M66ts315 03f9plGUl28/ja7b7/qo+89Dv/N63eO/67Ou++969p [file] ttTa2tFzKcEDCCB6Ujg2NzFKIxTMBBCi1+ZmZ9NBB0cNVtLxv7JGEsBFiiVMNMRm== ID Date Data Source [id number] 04/05/2021 02:07:06 AM EDT [facility] Name Value Range Interpretation Code Description Data Stephanie rce(s) Supporting Document(s) Color of Urine [facility] Clarity of Urine [facility] Specific gravity of Urine by Refractometry automated 1.016 1.003 -1.030 [facility] pH of Urine by Automated test strip 6.0 5.0-8.0 [facility] Protein [Mass/volume] in Urine by Automated test strip Neg [facility] Glucose [Mass/volume] in Urine by Automated test strip Neg [facility] Ketones [Mass/volume] in Urine by Automated test strip Neg [facility] Bilirubin.total [Presence] in Urine by Automated test strip Negative [facility] Hemoglobin [Presence] in Urine by Automated test strip Neg [facility] Leukocyte esterase [Presence] in Urine by Automated test strip Negative A [facility] Nitrite [Presence] in Urine by Automated test strip Negati ve [facility] Leukocytes [#/area] in Urine sediment by Automated count 2 /HPF 0 -5 [facility] Erythrocytes [#/area] in Urine sediment by Automated count 0-3 [facility] Bacteria [#/area] in Urine sediment by Automated count Non e [facility] Epithelial cells.squamous [#/area] in Urine sediment by Auto mated count 4 /HPF None [facility] Mucus [#/area] in Urine sediment by Microscopy low power field None [facility] ID Date Data Source [id number] 04/05/2021 02:27:17 AM EDT [facility] Name Value Range Interpretation Code Description Data Stephanie rce(s) Supporting Document(s) Amphetamine [Presence] in Urine by Screen method Negative [facility] Benzodiazepines [Presence] in Urine by Screen method Negat [facility] Cannabinoids [Presence] in Urine by Screen method Negative [facility] Benzoylecgonine [Presence] in Urine by Screen method [facility] Methadone [Presence] in Urine by Screen method Negative [facility] Opiates [Presence] in Urine by Screen method Negative [facility] Oxycodone [Presence] in Urine by Screen method Negative [facility] Fentanyl+Norfentanyl [Presence] in Urine by Screen method [facility] Service comment [facility] Results below the indicated cutoff (ng/m L), are reported as"Negative." Note: for medical purposes only; not valid for legalor employment testing. ID Date Data Source [id number] 04/05/2021 01:30:00 AM EDT [facility] Name Value Range Interpretation Code Description Data Stephanie rce(s) Supporting Document(s) SARS-CoV-2 RNA 2019 nCoV Real-Time RT-PCR: NOT DETECTED [facility] This lab was ordered by [facility] and reported by [facility]. ID Date Data Source [id number] 04/05/2021 09:15:34 AM EDT [facility] Name Value Range Interpretation Code Description Data Stephanie rce(s) Supporting Document(s) Hemoglobin A1c/Hemoglobin.total in Blood by HPLC 4.7 % 4.0-6.0 [facility] (NOTE)<5.7% Average risk of diabetes (ADA)5.7-6.4% Increased risk of diabetes(ADA)>/= 6.5% Diagnostic for diabetes(ADA) Glucose mean value [Mass/volume] in Blood Estimated fr om glycated hemoglobin 88 mg/dL <126 [facility] ID Date Data Source [id number] 04/05/2021 01:49:12 AM EDT [facility] Name Value Range Interpretation Code Description Data Stephanie rce(s) Supporting Document(s) Leukocytes [#/volume] in Blood by Automated count 7.5 10*3/uL 4.5-13 [facility] Erythrocytes [#/volume] in Blood by Automated count 4.28 10*6/uL 4.1- 5.3 [facility] Hemoglobin [Mass/volume] in Blood 12.6 g/dL 11.5-15.5 [facility] Hematocrit [Volume Fraction] of Blood by Automated count 37.6 % 3 6-45 [facility] Erythrocyte mean corpuscular volume [Entitic volume] by Auto mated count 87.8 fL 80-96 [facility] Erythrocyte mean corpuscular hemoglobin [Entitic mass] by Automated count 29.5 pg 27-33 [facility] Erythrocyte mean corpuscular hemoglobin concentration [Mass/volume] [facility] 33.5 g/dL [facility].0[facility] distribution width [Ratio] by Automated count 12.9 % 11.5-14.5 [facility] Platelets [#/volume] in Blood by Automated count 245 10*3/uL 150-400 [facility] Differential cell count method - Blood [facility] Neutrophils/100 leukocytes in Blood by Automated count 55 % [facility] Lymphocytes/100 leukocytes in Blood by Automated count 36 % [facility] Monocytes/100 leukocytes in Blood by Automated count 7 % [facility] Eosinophils/100 leukocytes in Blood by Automated count 2 % [facility] Basophils/100 leukocytes in Blood by Automated count 0 % [facility] Neutrophils [#/volume] in Blood by Automated count 4.13 10*3/uL 1.8-7 .0 [facility] Lymphocytes [#/volume] in Blood by Automated count 2.70 10*3/uL 1.2-4 .0 [facility] Monocytes [#/volume] in Blood by Automated count 0.51 10*3/uL 0-0.8 [facility] Eosinophils [#/volume] in Blood by Automated count 0.11 10*3/uL 0-0.5 [facility] Basophils [#/volume] in Blood by Automated count 0.01 10*3/uL 0-0.2 [facility] Nucleated erythrocytes/100 leukocytes [Ratio] in Blood by Automated count 0 /100{WBCs} 0-0 [facility] ID Date Data Source [id number] 04/05/2021 01:58:23 AM [facility] Value Range Interpretation Code Description Data Stephanie rce(s) Supporting Document(s) Prothrombin time (PT) 13.6 s 11.6-14.0 [facility] INR in Platelet poor plasma by Coagulation assay 1.09 [facility] Routine intensity oral anticoagulation I NR is typically 2.0-3.0. Target INR must be clinically individualized. ID Date Data Source [id number] 04/05/2021 02:22:57 AM [facility] Value Range Interpretation Code Description Data Stephanie rce(s) Supporting Document(s) Acetaminophen [Mass/volume] in Serum or Plasma 10.0-30.0 L [facility] ID Date Data Source [id number] 04/05/2021 02:22:57 AM [facility] Value Range Interpretation Code Description Data Stephanie rce(s) Supporting Document(s) Thyrotropin [Units/volume] in Serum or Plasma 2.870 u[IU]/mL 0.270-4. 200 [facility] ID Date Data Source [id number] 04/05/2021 02:22:57 AM [facility] Value Range Interpretation Code Description Data Stephanie rce(s) Supporting Document(s) Albumin [Mass/volume] in Serum or Plasma by Bromocresol green (BCG) dye binding method 4.2 g/dL 3.5[facility]5.2 [facility] Bilirubin.total [Mass/volume] in Serum or Plasma 0.2 mg/dL <1.2 [facility] Calcium [Mass/volume] in Serum or Plasma 8.8 mg/dL 8.6-10.0 [facility] Chloride [Moles/volume] in Serum or Plasma 107 mmol/L 98-107 [facility] Creatinine [Mass/volume] in Serum or Plasma 0.59 mg/dL 0.50-0.90 [facility] Glucose [Mass/volume] in Serum or Plasma 91 mg/dL 70-140 [facility] Alkaline phosphatase [Enzymatic activity/volume] in Serum or Plasma 113 U/L 35-104 H [facility] Potassium [Moles/volume] in Serum or Plasma 4.0 mmol/L 3.4-5.1 [facility] Protein [Mass/volume] in Serum or Plasma 7.3 g/dL 6.4-8.3 [facility] Sodium [Moles/volume] in Serum or Plasma 140 mmol/L 136-145 [facility] Aspartate aminotransferase [Enzymatic activity/volume] in Serum or Plasma 29 U/L <32 [facility] Urea nitrogen [Mass/volume] in Serum or Plasma 13 mg/dL 6-20 [facility] Osmolality of Serum or Plasma by calculation 290 mosm/kg 275-300 [facility] Creatinine/Urea nitrogen [Mass Ratio] in Serum or Plasma 22 [facility] Bicarbonate [Moles/volume] in Serum 23 mmol/L 22-29 [facility] Alanine aminotransferase [Enzymatic activity/volume] in Seru m or Plasma 40 U/L <33 H [facility] Anion gap 3 in Serum or Plasma 10 mmol/L 8-15 [facility] Glomerular filtration rate/1.73 sq M pre dicted among non-blacks [Volume Rate/Area] in Serum or Plasma by Creatinine-based formula (MDRD) >6 0 [facility] Glomerular filtration rate/1.73 sq M pre dicted among blacks [Volume Rate/Area] in Serum or Plasma by Creatinine-based formula (MDRD) >60 [facility] ID Date Data Source [id number] 04/05/2021 02:22:57 AM EDT [facility] Value Range Interpretation Code Description Data Stephanie rce(s) Supporting Document(s) Ethanol [Mass/volume] in Serum or Plasma Negative [facility] ID Date Data Source [id number] 04/05/2021 02:22:57 AM EDT [facility] Value Range Interpretation Code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 [facility] and reported by [facility]. ID Date Data Source [id number] 03/31/2021 12:12:00 AM EDT [facility] Name Value Range Interpretation Code Description Data Stephanie rce(s) Supporting Document(s) COVID-19, CORDELL NEGATIVE NEGATIVE [facility] Methodology: Isothermal Nucleic Acid Amp lification for [...] Emergency Use Authorization. ID Date Data Source [id number] 03/31/2021 12:33:00 AM EDT [facility] Name Value Range Interpretation Code Description Data Stephanie rce(s) Supporting Document(s) PCP VISTA NEG NEGATIVE [facility] MINIMUM LEVEL OF DETECTION IS 25 ng/ml BENZODIAZEPINES NEG NEGATIVE [facility] MINIMUM LEVEL OF DETECTION IS 200 ng/ml COCAINE VISTA NEG NEGATIVE [facility] MINIMUM LEVEL OF DETECTION IS 300 ng/ml AMPHETAMINES NEG NEGATIVE [facility] al MINIMUM LEVEL OF DETECTION IS 1000 ng/ml BARBITURATES NEG NEGATIVE [facility] CUTOFF CONCENTRATION IS 200 ng/ml CANNABINOIDS NEG NEGATIVE [facility] al CUTOFF CONCENTRATION IS 50 ng/ml METHADONE VISTA NEG NEGATIVE [facility] MINIMUM LEVEL OF DETECTION IS 300 ng/ml OPIATE VISTA NEG NEGATIVE [facility] MINIMUM DETECTION LEVEL IS 300 ng/ml ID Date Data Source [id number] 03/31/2021 12:13:00 AM EDT [facility] [place] Name Value Range Interpretation Code Description Data Stephanie rce(s) Supporting Document(s) URINE RBC None Seen NONE SEEN [facility] URINE WBC 0-2 WBCs/HPF NONE SEEN [facility] URINE BACTERIA Few NONE SEEN [facility] URINE EPI. Moderate NONE SEEN [facility] ID Date Data Source [id number] 03/31/2021 12:13:00 AM EDT [facility] Name Value Range Interpretation Code Description Data Stephanie rce(s) Supporting Document(s) URINE COLOR Yellow [facility] UAPR Cloudy [facility] UGLU Negative NEGATIVE [facility] URINE BILIRUBIN [facility] UK[facility] Negative NEGATIVE [facility] USG 1.031 1.010-1.025 [facility] UBLO Negative NEGATIVE [facility] UpH 6.0 5.0-8.0 [facility] UPRO Trace Negative [facility] UUB 1.0 mg/dL 0.2-1.0 [facility] UNIT Negative Negative [facility] ULEU Trace Negative [facility] ID Date Data Source [id number] 03/31/2021 12:13:00 AM EDT [facility] Name Value Range Interpretation Code Description Data Stephanie rce(s) Supporting Document(s) HCG QUAL URINE Negative [facility] ID Date Data Source [id number] 04/01/2021 06:53:00 PM EDT [facility] Physician DocumentationClaxton-Washtucna M edical CenterName: Yareli DuvallAge: 20 yrsSex: FemaleDOB: 2000MRN: [id number] Date: 03/30/2021Time: 23:26Account#: [id number] 1Private MD: NONE, - Per PatientED Physician Richie العليposition Summary:04/01/21 18:33Hospitalization OrderedHospitalization Status: Inpatient AdmissionseProvider: Anitra Oneillocation: Mental [...] symptoms: Pertinent negatives: abdominal pain, chestpain, fever, ke1vbgwbjxj, nausea, shortness of breath, vomiting. Patient is brought in [facility] evaluation. Patient reports suicidal ideation with a [...] Eyes: Negative for acute changes.ENT: Negative for nj1qicgp discharge, rhinorrhea, sinus congestion. Neck: Negative for [...] 98.4(TE); Pulse Ox 98% on R/A; Pain0/10; :34 Body Mass Index 48.58 (136.53 kg, 167.64 cm)jw50/8:40 Pain Scale: AdultjlMDM:03/1923:42 Patient medically screened.:57 Data reviewed: vital signs, nurses notes, lab test result(s). ED course:Patient here th4for mental health evaluation as above. Care is endorsed to Dr. Rica flores pending PSA evaluation disposition. Patient is medically [...] name: ETOH; Complete Time: 00::38 Order name: Pysgyrbwr775/1923:38 Order name: Salicylate Level; Complete Time: 00::38 Order name: Triage - Drug Screen; Complete Time: ::12 Interpretation: Within normal limits.:38 Order name: UA; [...] Order name: Medically Cleared for Eval by-Psychosocial, Sub Prior (.PSA):02 Order name: Mental Health Level 4; Complete Time: 05:0 5ej4Rrhvanssu Medications:03/2003:48 Drug: OLANZapine 10 mg [olanzapine 10 mg tablet (1 tabs)] Route: PO;jw504:30 Follow up: Response: No adverse reaction; No change in ypeiqiwgpgg562:08 Drug: Geodon 20 mg [ziprasidone 20 mg/mL (final concentration)intramuscular solution jw5(1 mL)] Route: IM; Site: left deltoid;07:13 Follow up: Response: No adverse mimrvedjcg708/2100:00 Drug: Geodon 20 mg [ziprasidone 20 mg/mL (final concentration)intramuscular solution tp2(1 mL)] Route: IM; Site: left deltoid;00:30 Follow up: Response: No adverse vnuwxmebcq501:00 Drug: LORazepam 2 mg [lorazepam 2 mg/mL injection solution (1 mL)] Route:IM; Site: qd7ulcad deltoid;00:30 Follow up: Response: No adverse espmzkfbnq104:00 Drug: diphenhydrAMINE 50 mg [diphenhydramine 50 mg/mL injection solution(1 mL)] Route: tp2IM; Site: right deltoid;00:30 Follow up: Response: No adverse pntzcxnmyl260:22 Drug: LORazepam 2 mg [lorazepam 2 mg/mL injection solution (1 mL)] Route:IM; Site: jlright vastus lateralis;10:33 Follow up: Response: Anxiety rxlymnunvuh951:23 Drug: diphenhydrAMINE 50 mg [diphenhydramine 50 mg/mL injection solution(1 mL)] Route: jlIM; Site: right vastus lateralis;10:33 Follow up: Response: Anxiety utrinlitivy385:24 Drug: Geodon 20 mg [ziprasidone 20 mg/mL (final concentration)intramuscular solution jl(1 mL)] Route: IM; Site: right vastus lateralis;10:33 Follow up: Response: Anxiety iqyijlbcqii4Jqftzelwmh:Dispatcher [employer] Kylie Fishman MD MD seHowland, Todd, MD MD rn2TxhlbFortunato humphrey RN RN gz7LgQfiuzBertha Garrison RN RN jlBreonna Marie RN RN nm9VfwjtscwAmi dang RN ef1 Name Value Range Interpretation Code Description Data Stephanie rce(s) Supporting Document(s) ID Date Data Source [id number] 04/01/2021 06:53:00 PM EDT [facility] Nurse's NotesClaxNYC [facility] Tootie terName: Yareli Mejiage: 20 yrsSex: FemaleDOB: 2000MRN: [id number] Date: 03/30/2021Time: 23:26Account#: [id number] 1Polga SMITH: NONE, - Per PatientDiagnosis: Free text-PTSD, bipolar with depressionPresentation:03/1923:28 Presenting complaint: Patient brought in by [employer] officer [facility]5evaluation due to patient calling reporting suicidal thoughts with plan to hangself oroverdose. International Travel Fever No. Coronavirus Screening: Have you beendiagnosedwith COVID-19 in the past 30 days? no Are you currently [facility]no Flu-like symptoms reported in the last 14 days: no. Have you had closecontact withconfirmed or suspected COVID-19 case? no Do you live in a setting where a largeofamount of people live, such as care home, family care, fci, etc? no. Haveyoutraveled to a location with widespread or ongoing COVID-19 community spread [facility]? no Have you traveled internationally or h ad contact with someonethat hastraveled and has been ill in the past 3 weeks? no Have you received the COVIDvaccine?Yes. Communicable Disease Screen: Negative for fever>/= 100 degrees Fahrenheit.Communicable disease screen is negative. (-) rash or unusual skin lesion (-)travel/contact with traveler (-) respiratory symptoms. Communication SpeaksEnglish?Yes, is preferred language.23:28 Acuity: Triage 5fx468:28 Method Of Arrival: Mmrwsadh887:30 Acuity Assignment: Triage 0lj7Iwebsz Assessment:23:33 General: Appears in no apparent distress, [...] threats or abuse. Denies injuries from another.Nutritional ap7yxjyqaimf: No deficits noted. Offer of HIV testing: patient was previouslyofferedscreening. Fall Risk None identified.Assessment:23:44 Reassessment: see triage.jw509/2000:54 Reassessment: No changes from previously documented assessment.jw503:24 Reassessment: after PSA informed patient that she would have to wait tillmorning and sy9zist the morning psychiatrist decide if she would [...] 10 mg po to helpwith anxiety MD stricklandrc5oiiejjdh and order received and medication given .05:02 Reassessment: Patient was using a marker to color as a coping strategyand took marker qn3nvucr and cut left forearm with part of [...] try to push way throughER door several sb2vsesrvzr made to keep patient turned around, patient [...] and joking with staff in a bright mood.aq2Umtdcsygqckm:03/2002:34 SAFE Act Report Not Completed. Intervention: Observation Level 3. Mentalhealth consult hfis initiated at 01:50. Referral Information: Evaluation referral is generatedby apolice agency: [facility]. The patient was referred for evaluationbecausesuicidal i deation with a plan. Subjective: The patients chief complaint is Ptpresentsto the ED with [place] [employer] due to Pt contacting them stating that she issuicidalwith a plan. Pt reports increased depression and being suicidal with a plan tohangself, overdose or jump off a bridge. Pt reports that she was at [facility] and transferred to [facility] yesterday and discharged. Ptreports reyshmainor is still feeling suicidal and was unable to contract for safety so doesn'tknow whythey discharged her. Pt reports increased stress due to; not feeling safe ather TLSresidence due to another resident, increased family conflict due to beingtransgenderand an ex being in [place]. Pt states that she has not been following the rulesat TLS.Pt denies HI. Pt denies any recent suicide attempts, last being February 2020 byoverdose. Pt does have an extensive history of suicide attempts, reporting 10+.Ptreports self harm by scraping her arm with a knife three weeks ago. [facility] [place]. Pt reportsthat cecilhas been eating more due to increased stress [...] overdose 02/2020 Mental HealthAdmissions:multiple, last being at [place] 03/16/21 Current Outpatient Mental HealthServices:Psychiatrist / Agency: eulalia ([facility] in [place]). Therapist /Agency:Grayson Farley ([facility] in [place]). Living Environment: The patientcurrently lives in a [facility] residence. Patient presents to Emergency Departmentwith thefollowing [...] structure. pills. Homicidal Ideation: Denies.02:56 Narrative This policy writer spoke with Dr. Mclean, Dr. Mclean recommendskeeping Pt in the ED hfat this time and presenting Pt to the psychiatrist on during the day.Consultation:Psych MD informed of patient's status at 02:56, ED MD notified of patientsstatus at02:56. Disposition: Medically cleared for disposition by Dr Argueta.PsychiatricConsult is performed by phone with Dr Mclean. The patient is not a servicemember ormilitary dependent. [place] Suicide Severity Rating Scale: Suicidal IdeationRating 3;Intensity of Ideations Rating 15; Suicidal Behavior Rating 0.07:39 Narrative PSA role handed off to this policy writer at 0730 AM.hf07:53 Narrative PSA role handed off to this policy writer at 0730 AM.em210:49 Narrative Pt is sleeping. Sitter is present. Safety is maintained .em212:43 Narrative Pt is sleeping. Sitter is present. Safety is maintained.em217:17 Legal Status: Patient's legal status will be Emergency: 9.39. DSM-V DXAxis I cl6isgcwluuo: Other Borderline Personality Disorder [place] II diagnosis: DeferredAxis IIIdiagnosis: None. [place] IV diagnosis: poor coping skills. InsurancePre-Certification:Not Required. [facility] A dmission Criteria: The patient is experiencing suicidalideation.The [...] status will be Emergency: 9.39. Commitmentpapers are gz3jnvtwgtpl. Pt has been provided a copy of their legal status and rights. DSM- VDX AxisI diagnosis: Bipolar D/O, depressed Post Traumatic Stress Disorder. Transitionof careto Pt will be [facility] to [facility] with PSA and [facility].Psych:03/1923:37 Subjective: Patient's mood is elevated, Delusions are denied,Hallucinations are denied sa4Llxhvx thoughts of suicide. Plan for suicide is [...] 98.4(TE); Pulse Ox 98% on R/A; Pain0/10; :34 Body Mass Index 48.58 (136.53 kg, 167.64 cm)jw509/2118:40 Pain Scale: AdultjlED Course:03/1923:27 Patient arrived in ED.jw523:28 NONE, - Per Patient is Private Physician.jw523:30 Triage completed.jw523:42 Nils Argueta MD is Attending Physician.th423:44 Patient has correct armband on for positive identification. Bed in lowposition. Sitter jw5at bedside.23:45 No Physician assisted procedures completed.jw523:45 Labs drawn. (by ED staff). Nasal Swab Collected by Nurse.jw523:55 Fortunato Mark, RN is Primary Nurse.jw509/2000:55 S itter at bedside.jw503:37 Sitter at bedside.jw505:23 Sitter at bedside.jw506:53 Sitter at bedside.jw519:17 Primary Nurse role handed off by Fortunato Mark RNjw509/2099:29 Fortunato Mark, RN is Primary Nurse.jw502:27 Sitter at bedside.jw504:17 [...] Response: No adverse reaction; No change in engwplpjajo800:08 Drug: Geodon 20 mg [ziprasidone 20 mg/mL (final concentration)intramuscular solution jw5(1 mL)] Route: IM; Site: left deltoid;07:13 Follow up: Response: No adverse tvipvjvzfz948/2100:00 Drug: Geodon 20 mg [ziprasidone 20 mg/mL (final concentration)intramuscular solution tp2(1 mL)] Route: IM; Site: left deltoid;00:30 Follow up: Response: No adverse xiyddlxjqj343:00 Drug: LORazepam 2 mg [lorazepam 2 mg/mL injection solution (1 mL)] Route:IM; Site: xh1bhatz deltoid;00:30 Follow up: Response: No adverse xvnmdhvfil876:00 Drug: diphenhydrAMINE 50 mg [diphenhydramine 50 mg/mL injection solution(1 mL)] Route: tp2IM; Site: right deltoid;00:30 Follow up: Response: No adverse ntdhxlurct045:22 Drug: LORazepam 2 mg [lorazepam 2 mg/mL injection solution (1 mL)] Route:IM; Site: jlright vastus lateralis;10:33 Follow up: Response: Anxiety zkkyiezivje900:23 Drug: diphenhydrAMINE 50 mg [diphenhydramine 50 mg/mL injection solution(1 mL)] Route: jlIM; Site: right vastus lateralis;10:33 Follow up: Response: Anxiety kxfwekvyrnd046:24 Drug: Geodon 20 mg [ziprasidone 20 mg/mL (final concentration)intramuscular solution jl(1 mL)] Route: IM; Site: right vastus lateralis;10:33 Follow up: Response: Anxiety txycetzhggp0Ltjcjot:18:06 Disposition: Admitted to Mjhinvu366:06 Condition: stable, Provider notified of abnormal vital signs.18:06 Discharge instructions given to patient, Instructed on need for admit,Demonstratedunderstanding of instructions.18:06 Discharge Assessment: Patient verbalized understanding of dispositioninstructions.Patient has no functional deficits.18:33 Decision to Hospitalize by Provider.se18:53 Patient left the ED.jlSignatures:Vincenzo Luis RN RN fbgElliott, Suzanne, MD MD seHowland, Todd, MD MD xb5VmisvFortunato Mark RN RN el8NkpaclwoAmi Medrano RN RN us1EkQsqzdBertha Collier RN RN jlPutney, Taylor, RN JOSE LUIS zg2DiwnzDanae Ordoñez RN RN ml4Moyer, Elissa em2Fye, Hayley hfCorrections: (The following items were deleted from the chart)03/1923:42 23:34 BP 104 / 79; Pulse 77bpm; Resp 18bpm; Pulse Ox 96%; Temp 98.7F;104.33 kg; Height jw55 ft. 6 in.; BMI: 37.1; jw509:50 03:24 Reassessment: after PSA informed patient that [...] off of the bed bysticking her head ab6tbueloz the guard rail, very aggressive and tried to hurt staff, called staff"dumbsluts" and told us to "go kill ourselves". MD Notified, placed in 4 pointrestraints.tp2 Name Value Range Interpretation Code Description Data [facility](s) Supporting Document(s) ID Date Data Source [id number] 03/28/2021 12:00:00 AM EDT [facility] Name Value Range Interpretation Code Description Data [facility]s) Sodium 139 mmol/L 136-145 Normal (applies to non-numeric resul ts) [facility] Potassium 3.5-5.1 Below low normal [facility] spital Chloride 105 mmol/L 98-107 Normal (applies to non-numeric resul ts) [facility] Carbon Dioxide CO2 21-32 Normal (applies to non-numer ic results) [facility] Anion Gap 5.0-16.0 Normal (applies to non-numeric resul ts) [facility] BUN 21 mg/dL 7-18 Above high normal [facility] ospital Creatinine,Serum 0.7-1.2 Normal (applies to non-numeric results) [facility] GFR >60 Normal (applies to non-numeric results) [facility] Glucose Level 137 mg/dL 60-99 Above high normal [facility] Reference range is only applicable when patient is fasting Note the following drug interference: Sulfasalazine Sulfapyridine Can see falsely depressed Can see falsely elevated result with up to 17% results with up to 11% decrease in measurement increase in measurement Recommend patients be collected for this test prior to administration of either drug. Calcium 8.5-10.1 Below low normal [facility] spital Bilirubin,Total 0.1-1.9 Normal (applies to non-numeric results) [facility] SGOT(AST) 20 U/L 15-37 Normal (applies to non-numeric resul ts) [facility] Note the following drug interference: Sulfasalazine Sulfapyridine Can see falsely depressed Can see falsely elevated result with up to 10% results with up to 10% decrease in measurement increase in measurement Recommend patients be collected for this test prior to administration of either drug. SGPT(ALT) 48 U/L 12-78 Normal (applies to non-numeric resul ts) [facility] Note the following drug interference: Sulfasalazine Sulfapyridine Can see falsely depressed Can see falsely elevated result with up to 29% results with up to 10% decrease in measurement increase in measurement Recommend patients be collected for this test prior to administration of either drug. Alkaline Phosphatase 114 U/L 38-126 Normal (applies to non-num deena results) [facility] can increase Alkaline Phosp le vels up to 2 times the normal adult value. Normal values for children and adolescents are 2 to 3 times the normal adult value. Total Protein 6.0-8.2 Normal (applies to non-numeric re sults) [facility] Albumin Level 3.4-5.0 Normal (applies to non-numeric re sults) [facility] ID Date Data Source [id number] 03/28/2021 12:00:00 AM EDT [facility] Name Value Range Interpretation Code Description Data Stephanie rce(s) Supporting Document(s) Troponin I 0.000-0.056 Normal (applies to non-numeric resu lts) [facility] ID Date Data Source [id number] 03/28/2021 12:00:00 AM EDT [facility] Name Value Range Interpretation Code Description Data Stephanie rce(s) Supporting Document(s) Magnesium 1.8-2.4 Normal (applies to non-numeric resul ts) [facility] ID Date Data Source [id number] 03/28/2021 12:00:00 AM EDT [facility] Name Value Range Interpretation Code Description Data Stephanie rce(s) Supporting Document(s) Salicylate 2.8-20.0 Below low normal [facility] ID Date Data Source [id number] 03/28/2021 12:00:00 AM EDT [facility] Name Value Range Interpretation Code Description Data Stephanie rce(s) Supporting Document(s) Acetaminophen 10.0-30.0 Below low normal [facility] ID Date Data Source [id number] 03/27/2021 11:58:00 PM EDT [facility] Name Value Range Interpretation Code Description Data Stephanie rce(s) Supporting Document(s) Ethanol Less than 10.0 Normal (applies to non-numeric r esults) [facility] ID Date Data Source [id number] 03/27/2021 11:36:00 PM EDT [facility] Name Value Range Interpretation Code Description Data Stephanie rce(s) Supporting Document(s) White Blood Count 3.5-10.5 Normal (applies to non-numeri c results) [facility] Red Blood Count 3.90-5.00 Normal (applies to non-numeric results) [facility] Hemoglobin 12.0-15.5 Normal (applies to non-numeric resul ts) [facility] Hematocrit 34.9-44.5 Normal (applies to non-numeric resul ts) [facility] Mean Corpuscular Volume 81.2-95.1 Normal (applies to non- numeric results) [facility] Mean Corpuscular Hgb 25.6-32.2 Normal (applies to non-num deena results) [facility] Mean Corpuscular Hgb Conc 32.0-36.0 Normal (applies to no n-numeric results) [facility] Red Cell Distribution Width 11.9-15.5 Normal (appli es to non-numeric results) [facility] Platelet Count 254 x10 3/uL 150-450 Normal (applies to non-numeric results) [facility] Mean Platelet Volume 9.4-12.4 Normal (applies to non-num deena results) [facility] Neutrophils% (Auto) 31.0-71.0 Normal (applies to non-nume frank results) [facility] Lymphocytes% (Auto) 20.0-55.0 Normal (applies to non-nume frank results) [facility] Monocytes% (Auto) 4.0-12.0 Normal (applies to non-numeri c results) [facility] Eosinophils% (Auto) 1.0-8.0 Normal (applies to non-nume frank results) [facility] Basophils% (Auto) 0.0-2.0 Normal (applies to non-numeri c results) [facility] Immature Granulocytes% (Auto) 0.0-2.0 Normal (alexander lies to non-numeric results) [facility] Neutrophils# (Auto) 1.50-6.20 Normal (applies to non-nume frank results) [facility] Lymphocytes# (Auto) 1.20-4.00 Normal (applies to non-nume frank results) [facility] Monocytes# (Auto) 0.00-0.90 Normal (applies to non-numeri c results) [facility] Eosinophils# (Auto) 0.00-0.50 Normal (applies to non-nume frank results) [facility] Basophils# (Auto) 0.00-0.20 Normal (applies to non-numeri c results) [facility] Immature Granulocytes# (Auto) 0.00-7.00 No rmal (applies to non-numeric results) [facility] ID Date Data Source [id number] 03/28/2021 12:21:00 AM EDT [facility] First test? UNKNOWNEmployed in [facility] re? UNKNOWNSymptomatic per CDC? UNKNOWNIf yes date of onset? 03/27/21Hospitalized? UNKNOWNICU? UNKNOWNResident in congregated care? ex care home, [facility] UNKNOWN? UNKNOWN Name Value Range Interpretation Code Description Data Stephanie rce(s) Supporting Document(s) SARS-CoV-2 RNA Negative Normal (applies to non-numeric r esults) [facility] Negative results should be treated as [...] Certificate of Accreditation. Factsheets for healthcare providers: https://www.fda.gov/media/403941/download Factsheets for patients: https://www.fda.gov/media/188412/download The ID NOW Instrument is a rapid molecular in vitro diagnostic test utilizing an isothermal nucleic acid amplification technology intended for the qualitative detection of nucleic acid from the SARS-CoV-2 viral RNA. THIS IS A STATE REPORTABLE COMMUNICABLE DISEASE. Manual entry verified by Aysha Andrade 03/28/21 0020 ID Date Data Source [id number] 03/28/2021 12:05:00 AM EDT [facility] Name Value Range Interpretation Code Description Data Stephanie rce(s) Supporting Document(s) HCG,Ur Negative Normal (applies to non-numeric results) [facility] ID Date Data Source [id number] 03/27/2021 11:58:00 PM EDT [facility] Name Value Range Interpretation Code Description Data Stephanie rce(s) Supporting Document(s) UDS Benzodiazepines Screen Negative Normal (applies to n on-numeric results) [facility] UDS Cocaine Screen Negative Normal (applies to non-numer ic results) [facility] UDS Ampetamine Screen Negative Normal (applies to non-nu meric results) [facility] UDS Cannabinoids Screen Negative Normal (applies to non- numeric results) [facility] UDS Opiates Screen Negative Normal (applies to non-numer ic results) [facility] UDS Barbiturates Screen Negative Normal (applies to non- numeric results) [facility] Threshold Levels Benzodiazepine 200 ng/mL Cocaine 300 ng/mL Amphetamines 1000 ng/mL Cannabinoids (THC) 50 ng/mL Opiates 300 ng/mL Barbiturates 200 ng/mL All positive findings are presumptive and unconfirmed. Confirmation of positive results are performed only at request of provider. Unconfirmed results must not be used for non-medical purposes (i.e. preemployment and legal purposes) ID Date Data Source [id number] 03/27/2021 11:37:00 PM [facility] Collected By: Nurse Name Value Range Interpretation Code Description Data Stephanie rce(s) Supporting Document(s) Color,Urine Colorl-Dk Y Normal (applies to non-numeric res ults) [facility] Clarity,Urine Clear Normal (applies to non-numeric re sults) [facility] Specific [place],Urine 1.005-1.030 [facility] pH,Urine 5.0-8.0 Normal (applies to non-numeric resul ts) [facility] Protein,Urine Negative Normal (applies to non-numeric re sults) [facility] Glucose,Urine Negative Normal (applies to non-numeric re sults) [facility] Ketones,Urine Negative Normal (applies to non-numeric re sults) [facility] Blood,Urine Negative Normal (applies to non-numeric resu lts) [facility] Bilirubin,Urine Negative Normal (applies to non-numeric results) [facility] Urobilinogen,Urine 0.2-1.0 Normal (applies to non-numer ic results) [facility] Leukocyte Esterase,Urine Negative Normal (applies to non -numeric results) [facility] Nitrite,Urine Negative Normal (applies to non-numeric re sults) [facility] ID Date Data Source [id number] 03/27/2021 10:35:00 PM EDT [facility] Name Value Range Interpretation Code Description Data Stephanie rce(s) Supporting Document(s) Respiratory specimen severe acute respir atory syndrome coronavirus 2 (SARS-CoV-2) RNA Negative (qualifier value) [facility] This lab [facility] and reported by . ID Date Data Source [id number] 03/25/2021 09:40:00 PM EDT [facility] Name Value Range Interpretation Code Description Data Stephaine rce(s) Supporting Document(s) Respiratory specimen severe acute respir atory syndrome coronavirus 2 (SARS-CoV-2) RNA Negative (qualifier value) [facility] This lab was ordered by Cholo heaton and reported by . ID Date Data Source [id number] 03/25/2021 10:10:00 PM EDT [facility] Collected By: Nurse Initials: cs Time Collected: 2142 Collected By: Nurse Initials: cs Time Collected: 2142 Collected By: Nurse Initials: cs Time Collected: 2142 Name Value Range Interpretation Code Description Data Stephanie rce(s) Supporting Document(s) Color,Urine Colorl-Dk Y Normal (applies to non-numeric res ults) [facility] Clarity,Urine Clear Normal (applies to non-numeric re sults) [facility] Specific [place],Urine 1.005-1.030 [facility] pH,Urine 5.0-8.0 Normal (applies to non-numeric resul ts) [facility] Protein,Urine Negative [facility] Glucose,Urine Negative Normal (applies to non-numeric re sults) [facility] Ketones,Urine Negative Normal (applies to non-numeric re sults) [facility] Blood,Urine Negative Normal (applies to non-numeric resu lts) [facility] Bilirubin,Urine Negative [facility] pital Urobilinogen,Urine 0.2-1.0 Normal (applies to non-numer ic results) [facility] Leukocyte Esterase,Urine Negative Normal (applies to non -numeric results) [facility] Nitrite,Urine Negative Normal (applies to non-numeric re sults) [facility] ID Date Data Source [id number] [facility]: [facility] Initials: cs Time Collected: 2142 Collected By: Nurse Initials: cs Time Collected: 2142 Collected By: Nurse Initials: cs Time Collected: 2142 Name Value Range Interpretation Code Description Data Stephanie rce(s) Supporting Document(s) RBC,Urine None Seen [facility] WBC,Urine None Seen [facility] Casts,Urine None Seen Normal (applies to non-numeric resu lts) [facility] Epithelial Cells,Urine None - Few Normal (applies to non-n umeric results) [facility] Squamous Cells,Urine None Seen [facility] Bacteria,Urine None Seen [facility] ital ID Date Data Source [id number] 03/[facility]21 [facility]10[facility]lected By: Nurse Initials: cs Time Collected: 2142 Collected By: Nurse Initials: cs Time Collected: 2142 Collected By: Nurse Initials: cs Time Collected: 2142 Name Value Range Interpretation Code Description Data Stephanie rce(s) Supporting Document(s) HCG,Ur Negative Normal (applies to non-numeric results) [facility] This is a Corrected Result --- 03/25/212206 --- Ur HCG previously reported as: Negative ID Date Data Source [id number] 03/25/2021 10:04:00 PM EDT [facility] Name Value Range Interpretation Code Description Data Stephanie rce(s) Supporting Document(s) SARS-CoV-2 RNA Negative Normal (applies to non-numeric r esults) [facility] Negative results should be treated as [...] Certificate of Accreditation. Factsheets for healthcare providers: https://www.fda.gov/media/631124/download Factsheets for patients: https://www.fda.gov/media/624558/download The ID NOW Instrument is a rapid molecular in vitro diagnostic test utilizing an isothermal nucleic acid amplification technology intended for the qualitative detection of nucleic acid from the SARS-CoV-2 viral RNA. THIS IS A STATE REPORTABLE COMMUNICABLE DISEASE. Manual entry verified by Rachel Leslie 03/25/212202 ID Date Data Source [id number] 03/25/2021 10:04:00 PM EDT [facility] Name Value Range Interpretation Code Description Data Stephanie rce(s) Supporting Document(s) UDS Benzodiazepines Screen Negative Normal (applies to n on-numeric results) [facility] UDS Cocaine Screen Negative Normal (applies to non-numer ic results) [facility] UDS Ampetamine Screen Negative Normal (applies to non-nu meric results) [facility] UDS Cannabinoids Screen Negative Normal (applies to non- numeric results) [facility] UDS Opiates Screen Negative Normal (applies to non-numer ic results) [facility] UDS Barbiturates Screen Negative Normal (applies to non- numeric results) [facility] Threshold Levels Benzodiazepine 200 ng/mL Cocaine 300 ng/mL Amphetamines 1000 ng/mL Cannabinoids (THC) 50 ng/mL Opiates 300 ng/mL Barbiturates 200 ng/mL All positive findings are presumptive and unconfirmed. Confirmation of positive results are performed only at request of provider. Unconfirmed results must not be used for non-medical purposes (i.e. preemployment and legal purposes) ID Date Data Source [id number] 03/25/2021 09:47:00 PM EDT [facility] Name Value Range Interpretation Code Description Data Stephanie rce(s) Supporting Document(s) Ethanol Less than 10.0 Normal (applies to non-numeric r esults) [facility] ID Date Data Source [id number] 03/25/2021 09:17:00 PM EDT [facility] Name Value Range Interpretation Code Description Data Stephanie rce(s) Supporting Document(s) White Blood Count 3.5-10.5 Normal (applies to non-numeri c results) [facility] Red Blood Count 3.90-5.00 Normal (applies to non-numeric results) [facility] Hemoglobin 12.0-15.5 Normal (applies to non-numeric resul ts) [facility] Hematocrit 34.9-44.5 Normal (applies to non-numeric resul ts) [facility] Mean Corpuscular Volume 81.2-95.1 Normal (applies to non- numeric results) [facility] Mean Corpuscular Hgb 25.6-32.2 Normal (applies to non-num deena results) [facility] Mean Corpuscular Hgb Conc 32.0-36.0 Normal (applies to no n-numeric results) [facility] Red Cell Distribution Width 11.9-15.5 Normal (appli es to non-numeric results) [facility] Platelet Count 264 x10 3/uL 150-450 Normal (applies to non-numeric results) [facility] Mean Platelet Volume 9.4-12.4 Normal (applies to non-num deena results) [facility] Neutrophils% (Auto) 31.0-71.0 Normal (applies to non-nume frank results) [facility] Lymphocytes% (Auto) 20.0-55.0 Normal (applies to non-nume frank results) [facility] Monocytes% (Auto) 4.0-12.0 Normal (applies to non-numeri c results) [facility] Eosinophils% (Auto) 1.0-8.0 Normal (applies to non-nume frank results) [facility] Basophils% (Auto) 0.0-2.0 Normal (applies to non-numeri c results) [facility] Immature Granulocytes% (Auto) 0.0-2.0 Normal (alexander lies to non-numeric results) [facility] Neutrophils# (Auto) 1.50-6.20 Normal (applies to non-nume frank results) [facility] Lymphocytes# (Auto) 1.20-4.00 Normal (applies to non-nume frank results) [facility] Monocytes# (Auto) 0.00-0.90 Normal (applies to non-numeri c results) [facility] Eosinophils# (Auto) 0.00-0.50 Normal (applies to non-nume frank results) [facility] Basophils# (Auto) 0.00-0.20 Normal (applies to non-numeri c results) [facility] Immature Granulocytes# (Auto) 0.00-7.00 No rmal (applies to non-numeric results) [facility] ID Date Data Source [id number] 03/25/2021 09:55:00 PM EDT [facility] Name Value Range Interpretation Code Description Data Stephanie rce(s) Supporting Document(s) Sodium 141 mmol/L 136-145 Normal (applies to non-numeric resul ts) [facility] Potassium 3.5-5.1 Normal (applies to non-numeric resul ts) [facility] Chloride 106 mmol/L 98-107 Normal (applies to non-numeric resul ts) [facility] Carbon Dioxide CO2 21-32 Normal (applies to non-numer ic results) [facility] Anion Gap 5.0-16.0 Normal (applies to non-numeric resul ts) [facility] BUN 12 mg/dL 7-18 Normal (applies to non-numeric results) [facility] Creatinine,Serum 0.7-1.2 Normal (applies to non-numeric results) [facility] GFR >60 Normal (applies to non-numeric results) [facility] Glucose Level 96 mg/dL 60-99 Normal (applies to non-numeric re sults) [facility] Reference range is only applicable when patient is fasting Note the following drug interference: Sulfasalazine Sulfapyridine Can see falsely depressed Can see falsely elevated result with up to 17% results with up to 11% decrease in measurement increase in measurement Recommend patients be collected for this test prior to administration of either drug. Calcium 8.5-10.1 Normal (applies to non-numeric resul ts) [facility] Bilirubin,Total 0.1-1.9 Normal (applies to non-numeric results) [facility] SGOT(AST) 27 U/L 15-37 Normal (applies to non-numeric resul ts) [facility] Note the following drug interference: Sulfasalazine Sulfapyridine Can see falsely depressed Can see falsely elevated result with up to 10% results with up to 10% decrease in measurement increase in measurement Recommend patients be collected for this test prior to administration of either drug. SGPT(ALT) 52 U/L 12-78 Normal (applies to non-numeric resul ts) [facility] Note the following drug interference: Sulfasalazine Sulfapyridine Can see falsely depressed Can see falsely elevated result with up to 29% results with up to 10% decrease in measurement increase in measurement Recommend patients be collected for this test prior to administration of either drug. Alkaline Phosphatase 126 U/L 38-126 Normal (applies to non-num deena results) [facility] can increase Alkaline Phosp le vels up to 2 times the normal adult value. Normal values for children and adolescents are 2 to 3 times the normal adult value. Total Protein 6.0-8.2 Normal (applies to non-numeric re sults) [facility] Albumin Level 3.4-5.0 Normal (applies to non-numeric re sults) [facility] ID Date Data Source [id number] 03/25/2021 09:55:00 PM EDT [facility] Name Value Range Interpretation Code Description Data Stephanie rce(s) Supporting Document(s) Troponin I 0.000-0.056 Normal (applies to non-numeric resu lts) [facility] ID Date Data Source [id number] 03/25/2021 09:55:00 PM EDT [facility] Name Value Range Interpretation Code Description Data Stephanie rce(s) Supporting Document(s) Magnesium 1.8-2.4 Normal (applies to non-numeric resul ts) [facility] ID Date Data Source [id number] 03/25/2021 09:55:00 PM EDT [facility] Name Value Range Interpretation Code Description Data Stephanie rce(s) Supporting Document(s) Salicylate 2.8-20.0 Below low normal [facility] ID Date Data Source [id number] 03/25/2021 09:55:00 PM EDT [facility] Name Value Range Interpretation Code Description Data Stephanie rce(s) Supporting Document(s) Acetaminophen 10.0-30.[address] [facility] ID Date Data Source [id number] 03/25/2021 07:15:08 AM EDT [facility] Name Value Range Interpretation Code Description Data Stephanie rce(s) Supporting Document(s) Discharge Summary [facility] BBIQOp8kQzDTGuJw47/MUOxtPLXtb0ZmLQvbOSu0MKerWTVlW0AgVOE5pF7iWCL4WHbMFiDdUaEbSZX6 lbm [file] uoQF2U1jevgONiJCtTMIn++/stringed instrument tuner//vp7CazmTbGoihEeFZdeGsh/rI2GK9Zsq9PPN/WOIEjGslPHMFZG6 [file] ICAgICAgICAgICAgICAgICAgICAgICAgICAgICAgICAgICAgICAgICAgICAgICAgICAgICAgICAgICAg SYLdKXKuTSRvYLXaUG1OYHKaJDMqVIVoPHTwBISlCE AgICAgICAgICAgICAgICAgICAgICAgICAgICAgICAgICAgICAgICAgICAgICAgICAgICAgICAgICAgIC JcCICbPWPyZHKlKUWvIJKnXBXbLSArXB3XARIwICLjHQWuVDHrZANbFZBaIEYrBUDeSUEhJOYuAXBsDZ AgICAgICAgICAgICAgICAgICAgICAgICAgICAgICAg SXCjOHHyYODdTEXvLPBpJGQvVDRcDYObSQLyUYCrPFZgND3PWKJsONNjLVEcBWRpTOHfNSVcDSSwOFAq ICAgICAgICAgICAgICAgICAgICAgICAgICAgICAgICAgICAgICAgICAgICAgICAgICAgICAgICAgICAg WCNcIHPoQLWiWAStNRKbJA1ICYVbTVXkMBJmYNYhRX AgICAgICAgICAgICAgICAgICAgICAgICAgICAgICAgICAgICAgICAgICAgICAgICAgICAgICAgICAgIC XdGUAoBMBuNIGzCREmISXwFIIcMOIrLOVoPF3MITNrAVUgBHYzJOScFHBxIAKoOIPkJHUuUIDjJLIbVY AgICAgICAgICAgICAgICAgICAgICAgICAgICAgICAg JQVaPKKtZZKeRGUkRVByWTYtUDLjMQKyVERjFUEaTYQdYXXwPD7DKOVaVTYbPEDgJPNkCOAwYXQiJMAe ICAgICAgICAgICAgICAgICAgICAgICAgICAgICAgICAgICAgICAgICAgICAgICAgICAgICAgICAgICAg AIGtYTGnPPNmDTMiNMArWUYmUY7ODOCuGNDfVWHhMD AgICAgICAgICAgICAgICAgICAgICAgICAgICAgICAgICAgICAgICAgICAgICAgICAgICAgICAgICAgIC MqSTRhMZYwGTGfNBOnMWOvMPBpWRYwDTWtMCKkPL0RSHEgMILoGAPaCUTtPFUeRZQuBZPdNGWwBHKsMX AgICAgICAgICAgICAgICAgICAgICAgICAgICAgICAg FPHgXKTvRZXrENUmAFZzJTSyNSFcKMLbBARtCVNqPQRlMNWzRAFgSY5VQHNtTCUzRHNlUPCdCNLbWPPk ICAgICAgICAgICAgICAgICAgICAgICAgICAgICAgICAgICAgICAgICAgICAgICAgICAgICAgICAgICAg OXSaEVRiYYRkXHRsBLUlNOEqSIGvAS8VBY02bIApw1 N5UKHxYY2nhfq/Hg2FTZtcxcJrlSJuTC0AJeVaRC3xdg1WRtDlUN4xgr3SECzERjUaG8L0gLKvFRWkHY CRXmSzW30yGLtsMi42BXdzTEQhXtJzSIp2Su6GTtCeN6zkBICfByE1SWYwTnF4MVNzKyW7LITgUkQkUS GmGHIhRCNvBPFSCXV4IZHxBqZvGuUjQFWaRGjmKZAI VUIvGOGtSwWzNaYdNFTaAoMeKAFWJHC4CRYdKeMtGBOtJEAdLC0UZGKvP792wsNyUBEEAr5+DQplbmRv VpiHCdOfAMIac5BrMLk7JR1NHSOcFhgiw7WgEvTeGTHETAxiYE0NQMV4ITYaFQPfLh8WQMSaX390knJy IM6IZs0BZeEiLP9sru7CBkUvDKSyWkjQRnm4TOmrWO 7SvIRzTMzGkZCqgVAfQ3YdP4VkxJVvpRDsjJDJLNFrNBagZ2CxCFtbFS9zWS6KDSY6VHcfWGTsFuCnTP CcHBs3WLYTWLeMMmNkM2Jkt5UmXiE0PBYlYcGiTBqmIDQyFhD2AJ82pVdwGS4DLNWeMERbPA91UIBrIS HtZh6NUp8HGnTqHQ6vuj6LRxQlJOVdGvxYEyy1PJyf EW8VhTNvY3SftJMuz6tDIgJfB5LNNQV9ZYOoEq3OCHHoCgAcPKZzSRgpLL1oPIQaYODVuRdwhbE2EQ5C EZ6proVgFP3QEiPgWx6lKs4DAhYxN6JlP2RnJOKoAUQDDAhhVE4HNPmlUK2wMQ1Ch2CZtDYjtX4twf1W IHCtTNTjThaczf0LWavaA6G9qYwxESUzUvKaZYRQAG jiEM9WHVChAVX2LXL9OJRfMBOMQpGrQ52gDR0LR9Ucs07bRdO2DDFnOyEoWXxwFI26aOjucoHdiFAwtO nuEZ4KRk1+ERonouIoOgjBHwqhFRKMRwBsWwXRKvVjKGKsBPMuHAPqLtG4XjMfFd5YNNWfMKSfLKVsHa FhHMDoNDTxDAdxDJZhETbqOLH9KCNlKYAmID7MUvKl VUDqOcF3IvGgLEYhNGMhfn4ZRILlSCSpXWJ2XaLlDVCxBMVlEZtbATGbRJV7OaM6EWVrAOQbSI7ZReXr BKUaWXZ0SuzgAEKrGZYxzd9FXMUrFUTxCHB7ImWzYGZqWCFkPYqgUUJwSDX1MhI6SKPdZVTqIE3HNbSt AACjIUP4KSarVDYbJPXxkg6SMFFaMLJuJgpqUvHlAX JcZMCqWEvqRYLpKMO1MCxfELHvNTOoWQ9VUeIaKHSzPUarJBfpPBZfXJUlvx9JZIOiBPBkGNHfYdAmFN CfMBFsROwrDFSiDJIxWiHpSDCqZWDbJR3NKbNdIUFwQuS9BiYgHRYmIGEped8UEPByMBIfSRV2OpUtOW GiMMGoKReuDAYtHJI9Mab3CRAxKNVnBC8UGwCsSWSh Upl9NEFmWCPaDSFmvj1UBDQtAEMxZJc7OmLqAHBiQQCeZOiyBCMsWASaCOk0YMLzFKJlET7HMuIhFHGd XaR5DlZtPHAsACGycb2AKWDjDAQnHUa6XLWoJPTiKOYoVThpBURjNXW6Fuu5DXCvGREhXG5VSwBkZTVr Zup1DRQuMMIaQTCzwq6NGXFjVEG2Bgm8ZRRsJHHlBL NtWQsiVFJxYMXgWXA9GMXpIGVfZZ5EDeXlRYZzGUM4XgXaBZReRWGxqe4HZYYiFLJ5SnTnXaIxWQDmJY MsDSvgMBRvUNB4NCwoZVJhYVVaBA6VTaKhGMLaVLhaOejsEFJtKNAadw4ZAIGvHII9QOKdTEAwGLEuUY OpOUvaOGDfIXX5PHL7LRMbQSOcVD8PCiYxUIBkNAl6 GIalDBViGMQufg3JPDHlPDD0SUW9CjRgTNTeJWWdXFakAHHxDUHiJVv7DNTqRQWoBY6LXqSjLQLxWGTp TdwkZNThEOXumx6QLAHvOBP1JpWbGaDsZPMeFHUtAEjiNRFdQSWaPiG5XBOzHCQxUA7YAuLeLHVpMEC2 YRwaDHCbDLBpgj5EDXCvXOG7WvO0WwBpNVNpLDSqGX fmDACmOJJxVIq5GHMkPBFkSC4BRfGmUJStNHU8OsCuZNTwKDDxvq0MGCZmCUP3LOzxNJCwMGYjHYGmAO hfIBMwQKO5QGO3RUWlFRGsTV8VBtLyVRAgNNGmXlTgKIVsJOWiwm0FJDXbLJB8SnEuOPQsDONbGVVdFK wbTOCzWOK0ZQE9XNDiQRXtXU9HFuLmMYLkAgddNpXx IYVeSDRuov7BHWZlWOM0LfI0DHDnLSZzYMAxNRngWCSyZOA3MSYyDHHlNPIiQR6TQtQkKRYfUjOlIoft CCQfRUWzsj0MCDYvMEF6KnH9MATfJQWcCQEoQShdTHDlFDkxNDL9LKVvDRBmXF5XDcWqMFKxViThPiJf TUUgBXTbvn0CDHIeLEA1BqVyByVuNXXbJGMhRMlwKB ZkIUunHNZ2UJArSFTmIU7HIxSiTWWaPeF2QdYnZFMhOAHkly7RGRKtELB2SodjHoRbLGUjVIGlMMimMZ RwTFt8AecaXXIeLQDwEY3OMtErXUBqDtH6YFUwDHRuXOYyqz9INMShWWW5YPq0XLDzAAFtODBiFOtyNB ZjECm1TCG4GGQuFTJsNH1IXqBtEObsRFEJZhv8KUil A1t7CDT9Oy9WT8Rzj3YbNyWzEYJPSYtwIM9hxtPgCSNlZp5VW8kAMuejDTNgDmooGhg6SsXwEkYgAcY2 BUoxSZCaTbT9YsGjBa7rNMMbOGXfGPCyPXH5I2EoZXVpPpp2MIR4KdDrWDfrIUV7LsIzNR8JWt1GNuU1 WQK4nUNvBp8YAgKhWXSDNrDkHG2MTTt= ID Date Data Source [id number] 03/24/2021 09:16:00 AM EDT [facility]: [id number] Reported By: - SHIVAM OSCAR MD Signed By: SHIVAM OSCAR MD Name Value Range Interpretation Code Description Data Stephanie rce(s) Supporting Document(s) ID Date Data Source [id number] 03/21/2021 04:51:30 PM EDT [facility] Name Value Range Interpretation Code Description Data Stephanie rce(s) Supporting Document(s) History and Physical [facility] TVDAUo8xJsKCJnUt21/TPZyqCCGzy3YdCHqhQIu6AXjsXDCgS6JcYSH8xM3kTIA3XKtRCtAyUoVaMISw lbm [file] AgICAgICAgICAgICAgICAgICAgICAgICAgICAgICAgICAgICAgICAgICAgICAgICAgICAgICAgICAgIC TzZBIjOT7CBQCtRTLdKRLtRIHcGLDiHJIwICVvGCSt ICAgICAgICAgICAgICAgICAgICAgICAgICAgICAgICAgICAgICAgICAgICAgICAgICAgICAgICAgICAg KWJwTQYwDVGkNFNeHUCaDL0GCCMuVGPuXGKbFVNaFGJpINQoAUWaAPEtEHMrYJMyTZJgVERlPXMeCOMe ICAgICAgICAgICAgICAgICAgICAgICAgICAgICAgIC MmYQFkMBZnUSBnCLAeODMzHJJfGTQvOOBbGC1BRVJhELKcOQWhWZTuBYHqUCAjQWGeNMTuEXFzWWZtIA AgICAgICAgICAgICAgICAgICAgICAgICAgICAgICAgICAgICAgICAgICAgICAgICAgICAgICAgICAgIC DrMCXyRTQdLG8SLIPbMRByMJJuEHLkCWRtTGKzTTEx ICAgICAgICAgICAgICAgICAgICAgICAgICAgICAgICAgICAgICAgICAgICAgICAgICAgICAgICAgICAg QBSyKVMeVIGcNSAdGZZuAOOlQE7YRMDuWIYgJHEwNCKjSNDuRYShHCMwENLdAMUtBECkDJIwOHDsRXEm ICAgICAgICAgICAgICAgICAgICAgICAgICAgICAgIC YtIDFcANFoVCRaLNOiPYRiWXTuPSBfUTMhEMXhGN5OZMHcCDSqOTFpTTShOZWqKNVwUYIbVFWsQAIoWL AgICAgICAgICAgICAgICAgICAgICAgICAgICAgICAgICAgICAgICAgICAgICAgICAgICAgICAgICAgIC QjVSHnKKQlMZKwSJ7MTAKtEBTlVXFmCRYpQXFgOVWr ICAgICAgICAgICAgICAgICAgICAgICAgICAgICAgICAgICAgICAgICAgICAgICAgICAgICAgICAgICAg MIRcPYVeDSFrKFWzZJZyJMMiPRUyVI3VMFWwDGMdNYVnPQEgKVJkWCUlFERvIKEpRNJpAKAeOFEkJNQm ICAgICAgICAgICAgICAgICAgICAgICAgICAgICAgIC KcPTSmBPQuEAFsMNBhEXMmJUVqEFXuCZHuDMUpUPAnZI4GMKHkIFXwVUYfUMRdUODrOLZjEPIrSFQwEH AgICAgICAgICAgICAgICAgICAgICAgICAgICAgICAgICAgICAgICAgICAgICAgICAgICAgICAgICAgIC QyWJOwRLBiRDSqZBOjDB5HIA90xAYlh6X9YWHoFO0w dyc/On4DEByatsDjxQFnGE4ABmSbRZ2lvi9YSsWxEW3kwo7XYAzHDeMeY4B1gSIlRMNvAAJLRfHxV53a STayYg48LDcyHKCbIcWfVCh3Wq6TVhOkI0mgYUWzXwD0JBFpFdW5LFDfMqB6FXTcTnSbDGQvUULdBZJc NTGOCC4PCtRxB2OwkB63ZTJJEq9+DQplbmRvYmoNCj N1AGVfp4FpLCr0GY6ZHXWaYvpzt1QtCrciHDZJVMabUJ4PKWT1PBO4DUDiIh8JWFQdZ638gsMkSA8VAq 3BRmMxLL4zjq8KHcnyRAOrDapIAab0JHpwCQ8KsTHeNGxEIuImKwnkJBQarCBTHAMzZRAaqWwuIRJvLH GjRU0zYW6kDDWyGPKdVfL6ADTUXV4MOSUoJAJxbLDh AMZzIPXOQT5JICggLGN2JHWbkmHbjUWdJKysDH1EESMynwYvLaIbPLDNFRt+Mr7QFF2wf5XsJJkiUWFo CE6ngd4DNStEDtVpB5A1iNVbY1Z3MDjlTv3ZSNTzJBEwEhFtLCRGGPgwBF8SGL6qpnH0WY5IpWNqNZSt VLSttQDyVYs5A58tiLZjUFogNN5EGFS+Dillon+Pg0KIC CzRPIcYJKwMkJiSMXJRqMbY1ToS8JFq4UyY5MqLU83jVadqiQsSOktZQ4DNF5zFFMuSOUZEI8IwHGpkA 0tinPoVfYoJKYUUvOhY62jeXTnHUHrZYH8PAXyXw6NJMKlM5IoreNbmTtwvjBgKADtXVBVDF3IFWwvbm GcwPYqgRcmBL76xYutVZ9HEc4PKiQlUQ5mex8VjTJr Gv4OWDGmXO9YXXGfFHLySAKiIDO0GVWiOyGkAIppMJQkSWAxDPY2HXFvHRLjQQ4IXxHxVUPtAtHaRUnz JPYeHUBfvv7UEMQxOVLpQwQ0COHtDPOaCGJhHScyLJQsDIVgLQT5UOJrNENpCT1SZoPrCIUzDSTkGBwl VEXsCCLhux8LAAKtEUMyRkMyYPLvIPQfQCHqPXqtKH XqICD3AMx1IHGbKHIfNY1COrOuOGIwLNE5SHNgOXTuEOWqhe4CXNYuZYGmSUUaUUWpWCYhTWPgXVwqWX LjNJM0YbJ5NGLfMCTyZO5AKjNnCHTrEIU3HAGwRQQzECCval7POYVzOAVzIwjyGEMlHOVvCQKfDWdiTF UjYBK1NCN2NHAaBFOzCJ9KFmBtVLYoAMJzTPExKEBr YWQica6RJNHaVIHeIxMeLSRnWRYpHUQsZLgdYVPyISR8WPn2GJRuJNYdGI4JEhTwPHJaUHU2HYQnOBWi WURdxt5BWTUbWWKpPnSmSXNwFURiTNIwFYfgIBAnQEH5CTAbKRRxDQYzIZ8LSrIyZFZqBXltRlupNCMi EYUvfo1FWDPxEMXvRDn5YTWjXVLvVRZvTNngQHNjTH N9JIr9AENrABGdQW4OZwFyRJBfCBbhOshqPCCuYBIhuc4XTJDeXTSrZOd2XZNtKYTmYAZaLAwuQGRfOD UdFXwtDENaQWOoZT4WSnOlPMNnLpOtFCYoKIAyKVHbpp0LBMYbENLbCZNfTAVxWPBuAGPbCDxcAUPkMA NgSfX6HKEnFYPcSR0QIjQyNYUrFaR2IKPjGMMdIIGa kb7OFEHpQBKhMkq6WLGkLLCpWMYbKFkuNGSyHSSmCLe8DAHhQQTzRM8YBmNbVKRmPbF8LUbaXJWoMAJr sw1CTQScBEWsFWMnTaDlXNAjRFIjGGaiUDNaIGS2Pzu3OBGiYTGaIX7NXsRjURXhEwQ1DIAnYONlGFWb vw9EIGJcGYBxIxXuKIMiDSXiNMLlVJkeGOTjEAH1Bq c7WXIwRBCnWF1YCgQbAXVoMoN0MXUzOVVbQEPpmk9CsXVzkXsusc4YUAkGAf0QiEziHEG4YIpzIo9syI GbIWTrZSTRCb5KbcPdSJQzVLCUFUptJDLfQZpmFezvBRBmBgP1RVUaBLEtBNT7TbK1RhspNAR4XZSuYm Q6BHQfRnXeSCN7DqN8BdQ0TuUlAnDfOlU9OVWcSAZt NWE+ZY6fUEq+Ps6Ek3MgviL0wkFnSNifOoC9EE5IWCRJU8SDXh== ID Date Data Source [id number] 03/21/2021 04:41:32 PM EDT [facility] Name Value Range Interpretation Code Description Data Stephanie e(s) Supporting Document(s) History and Physical [facility] OAXXWj4pIrVWBiYy34/ZYUhjZXUdz4TsWWgrFZj6WIscUEBeI2JeBEL8nW7sRGR4HCmJJtYjVrBrDCXv lbm [file] thu5ZT/C25OpzmxpVPO84QRzB/ODV+parlor chaperone+mDK5jyDJI [file] E+DQogICAgICAgICAgICAgICAgICAgICAgICAgICAgICAgICAgICAgICAgICAgICAgICAgICAgICAgIC AgICAgICAgICAgICAgICAgICAgICAgICAgICAgICAg ICAgICAgICAgICAgDQogICAgICAgICAgICAgICAgICAgICAgICAgICAgICAgICAgICAgICAgICAgICAg ICAgICAgICAgICAgICAgICAgICAgICAgICAgICAgICAgICAgICAgICAgICAgICAgICAgICAgDQogICAg ICAgICAgICAgICAgICAgICAgICAgICAgICAgICAgIC AgICAgICAgICAgICAgICAgICAgICAgICAgICAgICAgICAgICAgICAgICAgICAgICAgICAgICAgICAgIC AgICAgDQogICAgICAgICAgICAgICAgICAgICAgICAgICAgICAgICAgICAgICAgICAgICAgICAgICAgIC AgICAgICAgICAgICAgICAgICAgICAgICAgICAgICAg ICAgICAgICAgICAgICAgDQogICAgICAgICAgICAgICAgICAgICAgICAgICAgICAgICAgICAgICAgICAg ICAgICAgICAgICAgICAgICAgICAgICAgICAgICAgICAgICAgICAgICAgICAgICAgICAgICAgICAgDQog ICAgICAgICAgICAgICAgICAgICAgICAgICAgICAgIC AgICAgICAgICAgICAgICAgICAgICAgICAgICAgICAgICAgICAgICAgICAgICAgICAgICAgICAgICAgIC AgICAgICAgDQogICAgICAgICAgICAgICAgICAgICAgICAgICAgICAgICAgICAgICAgICAgICAgICAgIC AgICAgICAgICAgICAgICAgICAgICAgICAgICAgICAg ICAgICAgICAgICAgICAgICAgDQogICAgICAgICAgICAgICAgICAgICAgICAgICAgICAgICAgICAgICAg ICAgICAgICAgICAgICAgICAgICAgICAgICAgICAgICAgICAgICAgICAgICAgICAgICAgICAgICAgICAg DQogICAgICAgICAgICAgICAgICAgICAgICAgICAgIC AgICAgICAgICAgICAgICAgICAgICAgICAgICAgICAgICAgICAgICAgICAgICAgICAgICAgICAgICAgIC AgICAgICAgICAgDQogICAgICAgICAgICAgICAgICAgICAgICAgICAgICAgICAgICAgICAgICAgICAgIC AgICAgICAgICAgICAgICAgICAgICAgICAgICAgICAg QBNfQULoEHUvMBXdTPKiRSPnCMGvKBf8M0kdHMQsKQDdMZ9hFEw7Xr3+YFlDXzZePIU0rnYmoI0HOJ4o m8NtHOrtTFVif1MtGJo3JK6GRWNeYPauOQ5LNWhoaz1NFOMwFOPckUWPs3anYwDvYNL3MCCkWfuvXY5T MUSqY8runaUaZRKoOUSJGGgqWUDBKHjuIDKIEVArKV NcYwNjZjMvVMAvZFHkVGXSKIY5COGlLiKxKGHnKGYtBjWpJSKGMEE1LAWgMbYkXEqwIM3Vn0DamIAjTT 3TGn2TYmJnXI3aus3YSTNrXVRaPzsAEif5QEehXS8XvVOevYI4DKMzOTVOKbBmI8umf9NiYWYjNNILOW lxVK3Kw2RhsRYtOVw+Nd5UZY9za2LtQDc3TZJoSE5i ge4NJRlHLxVqT1KjoVbtEVfhMWOnlVUZq4gmswKZOM5psHJdUJB0ZKroWEDuPaUaBCTgEaiyUANMWWgY OgTwY5Shw8TzPvY2HUTiQsIoWUkjIPQaWcB2HW68pHrcAA3YMDQoCKHoBY00CNWlPLPuXb8FMb8AIpRz SQ3ebg8EKsCeXRDoAjgKSsl5INzcSP4SePArPM2Yke 7ekKJfE8CyqThcCSUrVCerpzYeJm8wRIDjPQjhWEZmHN3zK8ojG3tqT2MiVBZTVtOlH1JxH5ZcVmLwIC QcKsDfGAZrDDG1AOLZXgQeP7EcXUniVgIaSCRDGX8YNegjARAlG7YSHKuRMY4UU2ySZ3GPIV3GQBnKHu rWPoSKC5BOU5WRR21GImVgSP4+QQ2EZj7REeWaDL4v rv2AVFDeFNCsPrkGEqv8IIqlRK6KrUUgA0EuhEXdo0xOZnCfG4HYIFK9BERdBc2HKEAyJgCqTKXhHYqg GR0uHDVaDMMZjGcxbeE8SR5DHO2rekJqIL9HIxGcCl7wKz4YAiZcJ7JcZ1GdIAUyASHRYXkgCS5XWUus SD9tTQ4No0NPcRDofP9ikd9LEQKdXLUaBcnsuw7SAw udJ3R8uYszKCDsDQPmKFTSOMtvYK6MBNAuMFU3RWI1HXVaGUIHOsPlF37uDZ1XS4Jma22nBiA0YGFfYr UzMAjyGD36cJpcllWxcYXfgNezFS8ZVy6+DQplbmRvYmoNCnhyZWYNCjAgNTMNCjAwMDAwMDAwMDAgNj C7UiUhEg8UAWTnAMPfVBMdYmCaXWFhRTJbUWrlXZUn XRP6VhU8FXIoEVHtTU0CFfPyDIGhYObeWYZrCCDnPUHrri2PVFNnNVTzEIN6JzYzHDJmHIMzTRdeCOYr CIV5WwO7JIAsHSLhUJ1ZJtOsDTIsFHY6YYKjGAWbMMXncd0OJIHvDBEhJla0VYTjVCHkLDCpBVreLEIr MDK1FUe5FCAlROPeCW9GBgIvJEWhRTM1RayvCPHiAB Atab6ARDYfZGZpRKf1REGcHVDlIASlGOkoPPOjXGQ0FjG5FRTySQDoPY6RNfMqVJZgQBU1DbTsGERiUC Utls7QQGVnLUArNjB1UlXtUBInCBHpDTbbOWFyUXX9NpT9OARzNXOdZJ3JNrNuKEWqTvK1BbFxKTJlLN Mvlx5NNAKpUDFeIJO6WOMfEXKzTPDjJAmnMUVoDUC0 NcT5WMLnHICxGV9MSvGiUZXuJiU1YpOxGAJbQCZmqx7BXJDoMFPqTCIyUjFlJQKvBLPkHQugJDWnKDT9 CrW0TPGgLOBzYG5ZMpKdIOOwBxI3DvVqPUMuVQPpwo1XCHPvYQM7VFQsWPWiMACqGDWxIBviVRDkEZDq SFr4CDJzFOCjTG7EXiGlKGPaSiVuSUVfYMMnFMGvmj 0OCQBvYOLfDWYnUNGnADLeRMCxTLerUEKmXVM2GKL9XIAtXOPbEV3UIlDrNFDiSzYkBpOlEMIvRRHmmi 5SLFDzWRKuHYV2DEJkGAHuWXSrZSgxFAYiRET5VNO5FLTgATXlUL7PLzBjNRCnJlC2WYLsMRBvAKNccf 6LJLRvGPGgVpg0ULGeBCRsAQGhQXwqUDKuVVE0TBR6 AIWzKJDbKA5NHiXqGZByFrecCLJgEFCyQKPucj0XKYQlXCQtNQJrLLFvDVMwUCLxXNziIVHgFCT4ZAk7 LCVoPUFeQI2GIsXaRBGsSqf7ZAYlSCYyVPLfdu0CSNZmNCUeBKS8PzXcANKmQYFaRZnpXVJwLLKtDHEv VTGdHRHwJX2BFxIjXWRlCNW0RxOuKWRaPMDpcd8LJI KlUCT5XUc1CDApBKKbNKQzWGqcVVVxSNQ2RDDrASLjUBQuFI4UOiRvPYIfULMiNoFnZGTtCJXapg2SAQ FcBQV5HuJ8UWTaBPYuVQMsNVhrTFHgHAQ8EHx4XJAwOOMfMD9ZZqEoXLKvLOJ9SLmiQHKsQAJgir0RHV AnFAD0Uyf4XCEeORPsCYGnZLwoLNIpBFM3UPy0VWQa VIBuOH0JBjQmFBNzNYlbNYLpVZStHCPqyc8WELQqWZF4UslzIRXrUOSsHLFpDLupLRJiYUC3FeUlDGNa EPKtRE5MWiHpUGHjPInhWWWqNUJyNLKuqm2YJOTlQKK6KZU4IKIbUNOaNSDjUHy8btGzjLJbJIh5OV5H X2RohxDiDRNZXc8Kp745WGFwEKFsOb0XG1qlRx6zYJ PdQXLJDf2GCBy8B0IcSPPqDsQiIMmgMVYfTTguOaw6TsN5WymfJIzlQSV+AJp9JIT1BdD7LHYtCCUvJV LyPPC2QHruVFTkG6Y3N9Q2AB4xNGKZHb1+GFxaaOBijJwmBMVCEmL5OHY7SXmgACLDPe2U ID Date Data Source [id number] 03/20/2021 08:10:00 PM EDT [facility] Name Value Range Interpretation Code Description Data Stephanie rce(s) Supporting Document(s) SARS coronavirus 2 RNA [Presence] in Res piratory specimen by CORDELL with probe detection NEGATIVE [facility] This lab was ordered by [facility] a nd reported by [facility]. ID Date Data Source [id number] 03/19/2021 10:46:48 AM EDT [facility] Name Value Range Interpretation Code Description Data Stephanie rce(s) Supporting Document(s) Consults [facility] USKLDz9nEsECYeNs58/WDOreRXZuf0MmNJeeCKu0CFnvHZScS1YeDRX2xB1wAZO4HOrTDzXxAyNaFBC2 lbm [file] ICAgICAgICAgICAgICAgICAgICAgICAgICAgICAgIC AgICAgICAgICAgICAgICAgICAgICAgICAgICAgICAgICAgICAgICAgICAgICAgICAgICAgDQogICAgIC AgICAgICAgICAgICAgICAgICAgICAgICAgICAgICAgICAgICAgICAgICAgICAgICAgICAgICAgICAgIC AgICAgICAgICAgICAgICAgICAgICAgICAgICAgICAg ICAgDQogICAgICAgICAgICAgICAgICAgICAgICAgICAgICAgICAgICAgICAgICAgICAgICAgICAgICAg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 OKMxVCLfTFZjNWFlAZReQQWvILPrDUOnGGIuEMXqEW7OLMViBVEnFEDpWDBhLDJhBLXxLHRdFZMeSUFs ICAgICAgICAgICAgICAgICAgICAgICAgICAgICAgICAgICAgICAgICAgICAgICAgICAgICAgICAgICAg IPUlJLBoLMRoIRAbBI7UNLAzGHOhXNAxZWFjUSErFM AgICAgICAgICAgICAgICAgICAgICAgICAgICAgICAgICAgICAgICAgICAgICAgICAgICAgICAgICAgIC SaKVFdUFOmTMVbFWZqMOUrGFQyBUMxGB4PEUWmVPKpXDXvQFBsKRHcNITfAIQpRBTwRMIySLFjWPSxXO AgICAgICAgICAgICAgICAgICAgICAgICAgICAgICAg GGIhARZlYTQzIAAzCGUcBBOtZDYaNIVvDTEpNJAwAMQqKU2DIKUaQJRiBUGqMBEhMNGeTVZbSCHaHIMs ICAgICAgICAgICAgICAgICAgICAgICAgICAgICAgICAgICAgICAgICAgICAgICAgICAgICAgICAgICAg LWWaPCRdOOMqBYXwLYYqBI0TTKDwOFPqETSmNPUwSM AgICAgICAgICAgICAgICAgICAgICAgICAgICAgICAgICAgICAgICAgICAgICAgICAgICAgICAgICAgIC OkAFRcGBQlDMOcRIBcDOOoHKIpBOCxBTMnSO9CHSIsNQAiHGJvCCTbPNCoYOFsJVCmFRZwSIZxDGMvEX AgICAgICAgICAgICAgICAgICAgICAgICAgICAgICAg FAWfLFEiKXSrBTRrYQJwUFWhMUXbUFMhYTFgSWGdZOTqWFWsKT5KZWKuJTWlWZBhTVGwMYIkKFMrCVXk ICAgICAgICAgICAgICAgICAgICAgICAgICAgICAgICAgICAgICAgICAgICAgICAgICAgICAgICAgICAg ACWcHJRkXROuATRuSRZgGGYwDX5HRRTdXFVbJRKeEA AgICAgICAgICAgICAgICAgICAgICAgICAgICAgICAgICAgICAgICAgICAgICAgICAgICAgICAgICAgIC YyVDQkQPChVBQzEASjRZOnZFKlWAChRXFsEJHyCL4AMV91yTWxj2O6AKUoVI4vocb/Vm6TUDhbvfZpgB LjWD6QAgLaTK8dxb3NLnWbXE0krb2EHUiNBoSwY1M2 oQHoHWPjZPUXRpRdJ51qASmvMj23EYboMKYqQfJqNQr8On8DGhCoF9vxDBMjFgM3DMHnLzOnHNwoDC5J d2HtjAGaTZm+Zf4VGQ1gl8FuDCtkTPCsAP1fxi7ZBYfGBiKfZ8XwhxV3DIZ2JFZiIb6JXDUmKBJekUSy ONZwESNVRtRkJ3NipB26KSTWJn5+DQplbmRvYmoNCj S6DBNxx4AoZPu4WQ8JMIKkKNo8bTTrQzNqb7zbTaWMy9CwCJI1KHUlYzwsKYGbbEjvgA3gKVKFIZY7WQ ejVE5tFNOiUFViEtZcBQMKPU5SGPRaMHDzoLLyAYIdQLUOFP0CAGzkKIZ7KrshkhWksUEqHGbjJV8XLM JlbnQgMjQgMCBSDQo+Zj5GWK5eb1IiBVxuUqCsOL9f jt0RRNeBQsRvJ8T3yWKsN9E2SCzbIl7GKQHkGNXePhMgMQZXQPiwBQ1DFN0txlW4KV8PxTKgWEJuPEZo iYNiQQm0D79dfQHnEWvdND5EJRQ+Dillon+Ko8PYJBjBEKjGWLbNkEmCSWYLqYvE6UxH2CHx7PcG9PlSE37 vDqwmdRkWXwvWX0XPA1pTXQyDMHXND1YtNSshD6tbh LhBUXqTDEEOlBoJ43ixSPsQQYvWWEuZQMoYb3XCFIeT9OwpkXasUycphMkRTNnXCMDYY5MNSfcniVejM XutBrjME75xYsbKZ6YFq5BMuJnDX8xoi5VlVVoOy0ZCACeYy1KDJOePHXlQIVeDHW9RJTwHaObTUkhYW QcUGUwEUV9CAAlHHMrKN0DGuTzGBGeLlVfVdFhXZPw GKLjqm6HKAYrFOObKHr8QJObFNWrUVJaWKefQJBzMPTgHAO9HDOtSFZqEK3MDdOuSZKyBIUjQZOvEQBq PZLmma0HFWXkSORhJaCpCqZwWBPoLVLsBWdeCQYuUMUwUYW4NDXrSQQeYE6TYdVuHGGnVDOdWaJjVNEz ZZLbgr6FENYzLPQuEhQ9VFVjNICqVZElHLxcKVAeIS Z7YTE2XOJnEICxIH1WTvWnFYAxDPF4PXAfHYMgXKEdab3QRCGjTREiPSp1DHVsGHQzZCJkPEjrDFEfJE O1HuA1RHXzPEKtPU3DFiJcWJIeUIl8VZPeFDQgHNTuuw0EOIZlMPPtClv0YuMxHLVuZRYhZIgeKGFiNU Z8NQLdRKGjYCCoAC0ZEiBfCCRpLQejVKrkJYMaYVFt ai3UZCBzQVTtXLX7GDRgZHMqSYNmJCnbQWRrJIQ1Eyn0HKFzOCFlLQ4LLwOuISJnLWr5FHppCKLeDVVz ys8URTKjTTCyPRr5KmGbIZDqTXBhOQkhSPSzLKUkDDQiMALmMWPcZB0NIvCwLHNjUpI9REheKVBjWUXw nz6RKRWcOGFyDPx5LlJhVQUdRPBrITxfZOSgVHIyQX P0BNDhMGKrQC1JEsIeSFUkQhMgPVPtZHAuFHBlsi1OaRBeaCebtb7ICZyHGv0CoNubYIV5KOrxJc8fuA IkCtLuAUVSJh6YtuBuIHWoLGKLONsaKKSyYEM5CDJqVOA3WvJuD0HvTlLfF5XoPdNyJFOjNVX2HKT9Mb A9Vog0DyZnWZM0SaZ6SsRfIYLyYoFtDAPcAAB9Hua2 NDg+YM3gVXo+Ou4Ti7RzqhW1tvHgXXavBeY6Bd8ZKQREY9ZWHq== ID Date Data Source [id number] 03/15/2021 12:37:15 PM EDT [facility] Name Value Range Interpretation Code Description Data Stephanie rce(s) Supporting Document(s) Care Plan [facility] JRQFTd2gMuPOWyPc30/MNLcuQZGrj0ReWSlzUWc2OTdhHTGhH2BcTOW2eP6vHDT5PYnREuEtCbHxYYQ2 lbm [file] QWjkORS5KpFvGELoJZM4Y8Q8Lr9yEIQETj3+QLpuoPYffEtiTZBLDaL6DtW9XRenATNHMr1F ID Date Data Source [id number] 03/15/2021 12:11:43 PM EDT [facility] Name Value Range Interpretation Code Description Data Stephanie rce(s) Supporting Document(s) Consults [facility] IVTVMy3eGtOCJjPb78/ZNBneQENtl9IxMTihAGk3DVnsATWxE9AmVRE3zH3iRAQ5EPaUKtXmNvIbYMA2 lbm [file] ICAgICAgICAgICAgICAgICAgICAgICAgICAgICAgIC AgICAgICAgICAgICAgICAgICAgICAgDQogICAgICAgICAgICAgICAgICAgICAgICAgICAgICAgICAgIC AgICAgICAgICAgICAgICAgICAgICAgICAgICAgICAgICAgICAgICAgICAgICAgICAgICAgICAgICAgIC AgICAgDQogICAgICAgICAgICAgICAgICAgICAgICAg ICAgICAgICAgICAgICAgICAgICAgICAgICAgICAgICAgICAgICAgICAgICAgICAgICAgICAgICAgICAg ICAgICAgICAgICAgICAgDQogICAgICAgICAgICAgICAgICAgICAgICAgICAgICAgICAgICAgICAgICAg ICAgICAgICAgICAgICAgICAgICAgICAgICAgICAgIC AgICAgICAgICAgICAgICAgICAgICAgICAgDQogICAgICAgICAgICAgICAgICAgICAgICAgICAgICAgIC AgICAgICAgICAgICAgICAgICAgICAgICAgICAgICAgICAgICAgICAgICAgICAgICAgICAgICAgICAgIC AgICAgICAgDQogICAgICAgICAgICAgICAgICAgICAg ICAgICAgICAgICAgICAgICAgICAgICAgICAgICAgICAgICAgICAgICAgICAgICAgICAgICAgICAgICAg ICAgICAgICAgICAgICAgICAgDQogICAgICAgICAgICAgICAgICAgICAgICAgICAgICAgICAgICAgICAg ICAgICAgICAgICAgICAgICAgICAgICAgICAgICAgIC AgICAgICAgICAgICAgICAgICAgICAgICAgICAgDQogICAgICAgICAgICAgICAgICAgICAgICAgICAgIC AgICAgICAgICAgICAgICAgICAgICAgICAgICAgICAgICAgICAgICAgICAgICAgICAgICAgICAgICAgIC AgICAgICAgICAgDQogICAgICAgICAgICAgICAgICAg ICAgICAgICAgICAgICAgICAgICAgICAgICAgICAgICAgICAgICAgICAgICAgICAgICAgICAgICAgICAg ICAgICAgICAgICAgICAgICAgICAgDQogICAgICAgICAgICAgICAgICAgICAgICAgICAgICAgICAgICAg ICAgICAgICAgICAgICAgICAgICAgICAgICAgICAgIC VoNGWaCVJlPUSuSNVuWSCqOWKaRPOwKOBhSIRxDTSoNLd9T6chBRJfNGWhRO5zCDn9Qg2+DQoNCmVuZH M5ckAcsV4DUM6ms2WdMKkmSFBjp9VzGQb7EB5SMAMhMBndOU0JDJtjkm4GKSKqSYJxkJINh7juLlNyCW H3SXQdMocdOT3KWYZdT6etrpQyWJDgAOUTYB1IIvKd X5BkvQ70JPQKAj9+EIvmsaQcHrfQMoR5VJSvk1CeBHr5LA2FJJIdRfmrg3RbXPnjRTONPJtqCV1EMTW1 EOQ3GLFrEg8BCMUkC088agWjOA8NIj2MUaAvHW2qad8RUPbsDLQlMvyMVxh4MSakTO6SjJUkOLxFi06v hSv1ziHitKTYGRQiNB7aG18gVCujXD3GEJF8UJzdQD 3iVUAbCJCiErXfAOFYRZ8CFLTuKPPdiICrULBuGDKVJW3EFBhqZZT9OjtvpqDihBDkAAfdSZ8NDQWije QgMTcgMCBSDQo+Es5EHW8ke9MbGQcyTAKrWJ7yte8NTPmESuKnY3C8uURaD1A0RTxqTb9ADBQrXSOnJP KfUJCAZCgtPB8CTD7ralV9SK1YwSPmPNKvAZTclTSd RBw7R90ukWFbUMgxNV6KRVP+Dillon+Em7YBMEtNPMhALYoDuScRRRZWfCbB9RlE1ACt2FoL7NoWV47xDud vxIwKWhiNV3VZE2gUXWiQSHADF7IoUYjoU8oqpFpPvPcCQNHOwSgI24tsTFqDFUjDKH0IPZyEh8CBHQm T9HatnHyeBghyjLtLIXhCSZWUK0BVZsjpeFyaVMefU brBF69yXckCP1EAq4RSqUiCV6wac8PcIKsZy0MXFRfTF9HJGEwZIKnAXUnURP9SVWqCxIfAKgrNKPzXV EnMBS9LLGrREZkXG3EVsKsQSRqKFV6HCbrFYFnLZIlwj4HQKIwKGRkOjK2ErTbDEDdPQAkVMjzKPFhAW EgQAH5PQQkLMDrWS6IYzEtIQUpJTXsACOeDSYyDISm fv1GPQQlMOAcMVSbDVBrFAHePKRrZGejSKEeUFDxDjZ9WUTuYXXkZO4KIhGiINQqJOT2PsnkSHByQBRy wv7ORSGcDHGkHit9UwIxQXCkOLZmDLapQRNwQZYmNoUkBDRnMWYvRI9WCdBzOCIpEFY6NLjiWEOvXAVj mg5QIZGtVNTdEZS9EXBdRMZlCIQgLLbbJUVpWFK0GI J3JFGeOXPuRI0SUqAaEQGuNTHaQTxbBLDlXNBwrc1KZIVuKIGeVVUvEIOoDCRdXKRxPFxgOGExHCF5ZD Y6NSOmQCZsVA2TGpMrVGCmMNrxNYDrCXUkHCVojk0XSGJdSVIqWmT8SKGmUQYgXESrEUrjWWCeRLY3IE T0PCHsQSHrUR0GEtKlJSlhUPCPQqb9SHbpZ4b8QTYu ED5DH9Hwv3VgEYqeWKMHFZnjUZ2lpvQtMVSnGa7RC9oSQrv6SHPcJZOaPLQ4OitwZTQoNeWdZmtrFCIx BIT2A5JxPS8cWJZ9F4N3TVOlZyjoV9Y2LvPuJ0CqXJOlNJD4USd4HBRkSfGbLD8WRp3ZIrZ8TTV6jPKf Fe2NYfa0BT7CJBUJE8JDZg== ID Date Data Source [id number] 03/15/2021 10:14:33 AM EDT [facility] Name Value Range Interpretation Code Description Data Stephanie rce(s) Supporting Document(s) Care Plan [facility] AITYTx3zKdHMXkAh59/BYKuqNOJij3FgLUcfXWm4BOtsNXVrI8XeYKJ7wM7eWAX9IXzEGxFzDnZdKQV9 lbm BsSqzDNcEnIGCnVofCNyLnGRjwNpcrjGOtCD9ZcBW0XDGuP45nRJMjRDVqR6IgBUOyZOw+Bu1DRGJxyZ YeAW3UVduU8Mzbqid4OB6hKN3Ao49fIcdJRKZKaMmBRgEskyHqeR2uqu7GTqMe3gLOgsp91KGJIpId6M JJZ5hoJKiVRGTmHyei2cmEOHLdy2/VCIrXPAF9p/s1 uFC3lYifrwM3stv2xMx5aR8SSvKzykB+QvrVU1+/fZn6fX5Vf1PoWtBEv4FPzqJmqCmPlFglXulnbop+ sEN1uh0cTIBonsSvQIwLIaY9FTPj19cpmoZF+HiA8cKID36E28MDej+UfXs4fSSnrVxAXQBijpG2L0av gclbv+qejwm6N6CFIJcDu3zMIEHZD5/oztlyig2Jj9 [file] ICAgICAgICAgICAgICAgICAgICAgICAgICAgICAgIC AgICAgICAgICAgICAgICAgICAgICAgICAgICAgICAgICAgICAgICAgICAgICAgICAgDQogICAgICAgIC AgICAgICAgICAgICAgICAgICAgICAgICAgICAgICAgICAgICAgICAgICAgICAgICAgICAgICAgICAgIC AgICAgICAgICAgICAgICAgICAgICAgICAgICAgICAg DQogICAgICAgICAgICAgICAgICAgICAgICAgICAgICAgICAgICAgICAgICAgICAgICAgICAgICAgICAg ICAgICAgICAgICAgICAgICAgICAgICAgICAgICAgICAgICAgICAgICAgDQogICAgICAgICAgICAgICAg ICAgICAgICAgICAgICAgICAgICAgICAgICAgICAgIC AgICAgICAgICAgICAgICAgICAgICAgICAgICAgICAgICAgICAgICAgICAgICAgICAgICAgDQogICAgIC AgICAgICAgICAgICAgICAgICAgICAgICAgICAgICAgICAgICAgICAgICAgICAgICAgICAgICAgICAgIC AgICAgICAgICAgICAgICAgICAgICAgICAgICAgICAg ICAgDQogICAgICAgICAgICAgICAgICAgICAgICAgICAgICAgICAgICAgICAgICAgICAgICAgICAgICAg ICAgICAgICAgICAgICAgICAgICAgICAgICAgICAgICAgICAgICAgICAgICAgDQogICAgICAgICAgICAg ICAgICAgICAgICAgICAgICAgICAgICAgICAgICAgIC AgICAgICAgICAgICAgICAgICAgICAgICAgICAgICAgICAgICAgICAgICAgICAgICAgICAgICAgDQogIC AgICAgICAgICAgICAgICAgICAgICAgICAgICAgICAgICAgICAgICAgICAgICAgICAgICAgICAgICAgIC AgICAgICAgICAgICAgICAgICAgICAgICAgICAgICAg ICAgICAgDQogICAgICAgICAgICAgICAgICAgICAgICAgICAgICAgICAgICAgICAgICAgICAgICAgICAg ICAgICAgICAgICAgICAgICAgICAgICAgICAgICAgICAgICAgICAgICAgICAgICAgDQogICAgICAgICAg ICAgICAgICAgICAgICAgICAgICAgICAgICAgICAgIC AgICAgICAgICAgICAgICAgICAgICAgICAgICAgICAgICAgICAgICAgICAgICAgICAgICAgICAgICAgDQ k3I1zxKZExPPPmWC7iFNn1Qq3+VWtMPxFqQTC8pxQxlV1VZZ2xt9DgDCmaGAFck4YnYKx7UG4VFUDhXL qtQF5ZGIukkp7FDUXnZLFkjQXOr6nwZfAmTSL6UTPh BilgIK7HISTdC3milkEtIFXsFYOQTM3RDnZfI5UmjC60GSQABc1+PXreouIrAbsEBcH5UDDsj5QiSHe0 TX3XQDReZeyfs0WtDmPaYCXVUBcwAH1GSOT4ZBS6TYWmFs7OPXVdP477rcBmAY9ESi0RPzYnCV3udw3M JxSrDEWhWylJPez5IFwyRR6XzJKkTQuCVSReLXCpMP 5mTgqyYVHvhPMaDGAMy9A3QZUoIWRYKCL7VGuzPZ3rZHVcBOZqIpV9HMSGDU5QDFVsMVFyiTTfEOIjLR CFBW9GZNxzEOY3AzxvnlOjiRFwJRebOG1KPTJfboVhTlSwQYFKRId+Of5TGA0ur2XwSHdrNhKbND2msi 8FLEeWRfRlL5P3gAQoD3T0YGdlBw8OZUJqDPTrFmYh JNGLSTdjDG3RME7omsW1LN1DpGSmAEZzETVroZCmCNq6Q50uvMAeMYyhPH0BLQA+Dillon+Td8QFSFwGXTf ZNMbQjOjMQCCChNbW9MrV1LRu7CrF0KrLQ79pJpjfzHiFLqlYH6RSZ1mIOLrDDDMVT6JlKHkyW7ezcFd NUUoWBQEQwMdP92siHQhKWYaDRK0PZEsQv5JXQYkY5 YbvdVdzCidryRnQSNrPGUUII4TLDqgdsPpgSFtsGzhWP90bZkoVM8GWm9AWfNhPF0mri1WgYRfDh8AZA WfFD8HIJJoHBOgYPEyALN2MGWzMvIiGThfPEYdIVMnTUR8KKMcXASiPI4HTdTiLQHiGqVoJrzgSFKtJN Kwhb5MVVUjLLPhJcl4VJGvIXQhOAAvZIckFLZrFIWy ABF6DNIfMITyIW9SJaKaHQDsSKE4PyRiRLLhDHMheq4IYAPjAXAtJvSfIJSlIALgABCzIPoiOYFiSNRq JZs6NGIlEHDhCJ6IGjQnPOVqUKD8FZysTAPcYDLabs9TWNEzDPMpWhy1OvKuAKBhRAMlAUrlMHKdQFJ3 DTNbOKKxDNCjMB1BNtYvTEQqZWRwDeyxQZUdNKHmls 6UCAHbGZHgMGVvPOPqJCFnECWuOOqlVXMsUTA0ElinESFhUORoEK8NLxEsJQIoUPm9DNEbPJLeLCJzvg 9FZUHeSGBpAHY4VJNqWEWxOFUwUKvbXNKrQUW7OSU0ZAKzIQZuPZ9ESyJuSJJhTOq1AJKbVXMuHOMnhk 7GZLGlHDViEQHpIoBjONEpAUKvHGowLDAuCUC2VgYp HBXqRQZhSJ8JIjZdTGRmFLf7ZJvyDWFnUCHsev7HQIPmUTDwQHm5WVAwKZXiMCBrAJvcNPHxFTSyPDF8 QHNeJREvWI8CYkXrRMYiRwVbXJziVUHcKOOgvp4KMSBoEUZbQGZmKEGgPFLdIIPdVZwcVLAdOJGcHXl7 MGNfNTPwDU1THdYkCBVkUiKoSWzmEZTuHJXlmx3MDL EpMBMhImP4KHNgBNUtBECxVKb0ihSkxBGcWVn5PS2VT9MccvThZgsTBf7Zn241UJN6IQKhTo6RG0foVj 3bTYUeCIDGSj8XCSd9UWL3NKCeIHtnLLZ0QRu8QXDqCbPhGNQsGjj4XQRnLqI+IQolOQR3FrR3QCPuXZ FeVaheU1S1QTOaR0M6FOS2CEQhVC8rOKHTLa1+YFqbqDOsxLadSAFCIaQyGSW1EHogEJHPUv1C ID Date Data Source [id number] 03/15/2021 05:49:27 AM EDT [facility] Name Value Range Interpretation Code Description Data Stephanie rce(s) Supporting Document(s) Nursing Note [facility] JQVEDw0cVjNBMgKp60/YMFvpKETwe8UcAEnxCOz3ZSoeZVIzP6GdWJD5yK0zLGA2LEsNIoQxFnXsGPF0 lbm [file] QWK1ZAK4CzSaSX6RVl5FDxT7QMM3hAAqMh4XZwU6LeHZDrYtXM1FXOj= ID Date Data Source [id number] 03/15/2021 12:37:56 AM EDT [facility] Name Value Range Interpretation Code Description Data Stephanie rce(s) Supporting Document(s) Nursing Note [facility] ODJOJl4fLaIOQeWl74/ANIyzBUOyk9EzIQihTJc7DEueDUUgS2SnJUQ9kI0zAAO8AYvLEhFmBkFtMVY6 lbm [file] ICAgICAgICAgICAgICAgICAgICAgICAgICAgICAgIC AgICAgICAgICAgICAgICAgICAgICAgICAgICAgICAgICAgICAgICAgICAgICAgICANCiAgICAgICAgIC AgICAgICAgICAgICAgICAgICAgICAgICAgICAgICAgICAgICAgICAgICAgICAgICAgICAgICAgICAgIC AgICAgICAgICAgICAgICAgICAgICAgICAgICAgICAN CiAgICAgICAgICAgICAgICAgICAgICAgICAgICAgICAgICAgICAgICAgICAgICAgICAgICAgICAgICAg ICAgICAgICAgICAgICAgICAgICAgICAgICAgICAgICAgICAgICAgICANCiAgICAgICAgICAgICAgICAg ICAgICAgICAgICAgICAgICAgICAgICAgICAgICAgIC AgICAgICAgICAgICAgICAgICAgICAgICAgICAgICAgICAgICAgICAgICAgICAgICAgICANCiAgICAgIC AgICAgICAgICAgICAgICAgICAgICAgICAgICAgICAgICAgICAgICAgICAgICAgICAgICAgICAgICAgIC AgICAgICAgICAgICAgICAgICAgICAgICAgICAgICAg ICANCiAgICAgICAgICAgICAgICAgICAgICAgICAgICAgICAgICAgICAgICAgICAgICAgICAgICAgICAg ICAgICAgICAgICAgICAgICAgICAgICAgICAgICAgICAgICAgICAgICAgICANCiAgICAgICAgICAgICAg ICAgICAgICAgICAgICAgICAgICAgICAgICAgICAgIC AgICAgICAgICAgICAgICAgICAgICAgICAgICAgICAgICAgICAgICAgICAgICAgICAgICAgICANCiAgIC AgICAgICAgICAgICAgICAgICAgICAgICAgICAgICAgICAgICAgICAgICAgICAgICAgICAgICAgICAgIC AgICAgICAgICAgICAgICAgICAgICAgICAgICAgICAg ICAgICANCiAgICAgICAgICAgICAgICAgICAgICAgICAgICAgICAgICAgICAgICAgICAgICAgICAgICAg ICAgICAgICAgICAgICAgICAgICAgICAgICAgICAgICAgICAgICAgICAgICAgICANCiAgICAgICAgICAg ICAgICAgICAgICAgICAgICAgICAgICAgICAgICAgIC AgICAgICAgICAgICAgICAgICAgICAgICAgICAgICAgICAgICAgICAgICAgICAgICAgICAgICAgICANCj w/bDRbP0jjcNTwdhR6L1cnHo8OMg7AOX7em9LsKDOoOCcehsInLmzNKhJcIINdMzrPJvg1OEdwOV4JlG JrX5RuO6OaOHxaCB9NAMMfOFTxxBFiZSZuSXBaUrR1 EOOcOKbhSN0VkZAgYLssZSLsZLKgYW2KCKAmH933xmCnRH3EJb5UJfNlFC0ocj1NYnWvVOYoVvrNSfn6 AYhsAP8XoJFkcJHyGRKhLAXOXiZuL2smh4DpOgYhYMLSCOzjWO3In8BwiZCwIAh+Fz4CVA8gk5CnXKja FZWxBD2yda1PXNhMTdEnQ1BfoLemQL21zsKyprogHe 36LCOljVQAIDXoexWIZHEsg5UyTLJHULO7YDvrWj0lIIJnPNVeVvSeNHVQYV3PHLNvTDMzaMVoECZmNE WCHA8WRFlgSMA8TmkiduZmqIYuJSrjCA2DGXVlleLrKcSiJFBERWo+Nq8XDX3mj8FgSAaiBqLzXB0pyp 5OJPoVIiIlW7Q2bCXhA8I9GEvgRy8SJSGhFZAkSrRn RFFSUQsxFX8BMS5wgfU1CW6CmFErOGKlENQisGMlNLf2O96bfKFjNBwtMV9GSEZ+Dillon+Xp6ELYXgKTPl YUYuHxQxTOZJJgQnY7WbD8PCy3SwB9UqBI67qBcuwoQeYWtnXA9ULB1jRBOzJKYTAC4AfQUpkY9iwmWy RUXkBTBJXyGmV52vqJUzBZYyIBNjQYVcMq1CVFViS9 LdvrJflNifvbHaLPHvAJAOQL5TNOcucyGqoFRyyWaqJU49nVgmFW8HJs7KIqXcWT0ekn5IqXLkCh9AOV KxKi6ORRWcRKKfFWWrRGT3FFJiZjQrUImlCKYvDWCaAKP9AIHiMRQgAU7JFtDiFAFhGjL7MAAfBKIcGQ Jcow0DNMXnMXQqMeO1GJZrPJSwRRDkRXijKFYaUENx ZFT1XRYnXDYpGW5EAzEqBHBlXAP3WbodYPAyHBKbio5WFNRsNXPqUnI9PySlXJZhMSQaWMevWVGxJKB8 ZDCiYPAkPLVrQT4SMnVeHDTeKOWkTJTgWWVoTCDhrj1PGMAuTHNyBEFwEfIoKWBwZIQyWFhlSSDuBDP2 Wyk4LNCqMFSkVB1MXeVcLQPnUTY8YDEzEOCxQIOpxs 0ZEZBqSZTuTSm9IKZyKNUtOKKfMEalNUGdJSH9IGP7GGBpNFLdEN4YXcLkIOEaGHn5XzMvZDBvVTUrdd 2KTBXbVQUyHCZpSUHaQTTlQLQuKXddWMEiQGH7PYz0TZKoCOLiQF8DVxFxGZUiEYduCpMjTKOvQQKfuf 3NIACfMQTpJXt4CzZrYLDrPVEiFLxeZNGtJDVgBUZs MEJxCBDvOU4SNuPbEKRgSdBwVtVuAVDkGMTsiq5XRVVeWTEkFCUuRVJoJSJcIYAcEUmvPGSaAHOsMQz1 IFRxOCUzOG1XWqZrOJOfGrLrBvBgPTCrXAGkzs2LIAQvQMAfLdj5McUjUCLsVXIiVVtjKDZlHSGeOZZ0 AOUaOZLkIU1YUkRcBWPuXfX1JSbdCBFjOCJwsg9HbL GdaThdzw3AKGfLUa6VxZuwSJC5KHlpZb7ubVEsVaZrMYQFSd6AetEyREOkRBZYFEirMEUbKZA4WqL0BO o7XGCxWMb1HyG9JhNuEAZdLZCoTAo0NeoiSrU9QsKeCEo6ANisJOP2MGa1Isk3GwEdDLAqQkX5UgG4L5 M+YD3bHJk+Xu7Ma2UdyaU2jkKpLEidElQiHz3ZLBNKR7DFNo== ID Date Data Source [id number] 03/15/2021 12:37:46 AM EDT [facility] Name Value Range Interpretation Code Description Data Stephanie rce(s) Supporting Document(s) Care Plan [facility] JKHOVp8wAsOQUhZd07/HWHjxQVEbr8ZmJPjgUSy1EScfTWVtF9MbSOX1uG0uBYT6KRdBYzWnCbWqKRE8 lbm [file] ID Date Data Source [id number] 03/15/2021 12:36:31 AM EDT [facility] Name Value Range Interpretation Code Description Data Stephanie rce(s) Supporting Document(s) Nursing Note [facility] HUBALl1bNuXSAlFj17/OLRrdPOHuf0NmWCzhZZl6NHzeGABbT4LpPKX0wZ7uYWL8YLrUMzYcEmBnEZN1 lbm [file] 6 dealer qPzAT59WYNYFKBVtok0nNfmw2KB6aob98OOZy+lvrQz0qQSgONLfp/PsTwFPSoriaVlJ+xXP/paVzBMa wYdJkhCWYmqvVEuFZHnTnTLTDk2bXKbJlcfwuWMJsF vRLUe9L9DLXj+Tw+BJ+2Ft3ry0VOR2SLLmdXvsKO9jUXrkBD8xtEnIqEViYM+/urSII/saSiN0CcaZbm AkwoMExZcyVTHuck3u0FKSRfi4GKE7dcktFRolqnCpy69JNAvKEliVIct+gNlWaS1j75q1rz8nk8mDbr DlF5RIO/ucJroPRw/wpiuqDC21fIWPtxjhSxL8qUT0 v3OTuzjh7KmEFNiIiixaeUnfYteLSNmCQ1lNcWeuR1bHowUggTqHVBFSrdUrYZzK7OReSIVZZrHDsRhD nEG5hZBI9UHpKbVA8OqWVMutmDISzFRSLvoj/csYI8KNO+TCt80aXIc7MZ3qAGdQkdhAsMqeeg8Srrn8 jfEs19WnDTad7F1Zo0Wbv4gocdj5X0F/DpX7pvRPA2 rdVDRF70j5w8MNy/XbgGAOpOwOxyXpZBBjxEZ2DhR9xiVPpBaFdCE6SSmqZeOCrPyVHBqV9utqlB3GDk ydlG7nEy8zbCt5UHaPKvUECVaQHl/vcomtl0QRExwFqIcBLan31w7R9zqxiJlqnL3Zx8ThvIKk6hF6TQ 8m+/xfsH47bgUnmQ9q1+tuRcMKcwCwqcvl7pqVFZcb +GD19Fa6ygSs9R6hDX9CHhCZ9vogq4sjGMdEj3Us1K9P8gG/ZPd03RcZ7bbOJi3LDeRJ/K0Rti9PzaD9 Y7SBHcl+87k1ocfnmHb8+a7rvLTPAEuziqsmJwVCSQnTOPaaqEaOj6+KUXtuFbnW8j/n0NEtVwQL6f56 5Cpm5id15fhBj45Lo2BgUU91vO4K1m96A7+uoWH3yk [file] Xwzedz1CzWQZpp6JAsERu6xN78YjK+A17ShksN3X2ztq5X+n3NepMx6ZBx17UCYJGpVc46cb16M2+jewelry polisher [file] BhSZV4Zfo6Jc0pZNUACq7+KVswkOEvoWqcJTCVDdU4TFP3MPzwRAEVJv6N ID Date Data Source [id number] 03/14/2021 04:35:03 PM EDT [facility] Name Value Range Interpretation Code Description Data Stephanie rce(s) Supporting Document(s) Nursing Note [facility] KOJJGl7jEfKOMfBp11/TLHlvBBStb0CoUKzlGOf4QUspBEWsV0MbLPC3sA7wGXJ7UOpGGzXuYtNqLDKs lbm [file] i3VC6JGCM4CRYsJf2VHKQgUT2SYSIlHGHsZXEVTbWt EIWeKtEePQYuYRLSWCayMOJfW6CnRRK0KFTfWz0+FVjrRW2FK8YhEPQ5SZm4QF0+TAwzYS9OiWURK0Mq jMYzQNsyH6NYKP8VFHU3TE2AxXXcAH7ImHSUO1MapQYvIq2hCBDey1SoUu6tK2QJIGLMECVuJLlfEDdo ANWzYQc0K3M6VPUrB4IAC290yWVigLy8Cu1mE0VYVW qBDgUkIEytWMpmEWGoZTl4C4Y3ZDJuS6STU5YsXiJccnDxW2J+UzSiTLEGCF4PKMEFGTe3Y3E3tASnH7 H3sChJmUE9BC9LBY4WcHRreOIrl91+KzJUJaDeY3NVT9PDYN7KMBa4K0M4oPFtB8R1oFzWwEG1ES7VAP 0BrHmxqOIjHn3mFIfkGHM+Av9FPt4HEyMmAQ8fky6T QyTeNHHuEvtMRqc2Y0mxcna1sIQnLgW0R6A1AuS9eDFcPN4HJ6A2sCOnEDB9TVGusDL+De6La4VjBJVd PJa4D8mxMNVuBLDbBdIpwE62E++6mgoqmLD5X9u0NNCRzXWmdYhPloQhF2uMMAN5y4F3PEe/Rc5RRAN3 mGn7aZOfPIZwFCe9iG7fgRw9PmZnPW15QWVxAXvjsQ 7qXus4C9Izk4OnOg8wTm4zmOIkOv3OTfJdRAH3aiXzDtKRIwH0sUdmcllvAAI6F4p9kKA8Qy19s2vcfe Qdb8IzFfX5LMxxEOMyRdOlzkOlWSW7qmAjtN0hytEyOe6UXXWtCVvoqjWuCoXXMb2BLlSsZS34HgunjU 1ldGE+DQogICAgICAgICAgICAgICAgICAgICAgICAg ICAgICAgICAgICAgICAgICAgICAgICAgICAgICAgICAgICAgICAgICAgICAgICAgICAgICAgICAgICAg ICAgICAgICAgICAgICAgDQogICAgICAgICAgICAgICAgICAgICAgICAgICAgICAgICAgICAgICAgICAg ICAgICAgICAgICAgICAgICAgICAgICAgICAgICAgIC AgICAgICAgICAgICAgICAgICAgICAgICAgDQogICAgICAgICAgICAgICAgICAgICAgICAgICAgICAgIC AgICAgICAgICAgICAgICAgICAgICAgICAgICAgICAgICAgICAgICAgICAgICAgICAgICAgICAgICAgIC AgICAgICAgDQogICAgICAgICAgICAgICAgICAgICAg ICAgICAgICAgICAgICAgICAgICAgICAgICAgICAgICAgICAgICAgICAgICAgICAgICAgICAgICAgICAg ICAgICAgICAgICAgICAgICAgDQogICAgICAgICAgICAgICAgICAgICAgICAgICAgICAgICAgICAgICAg ICAgICAgICAgICAgICAgICAgICAgICAgICAgICAgIC AgICAgICAgICAgICAgICAgICAgICAgICAgICAgDQogICAgICAgICAgICAgICAgICAgICAgICAgICAgIC AgICAgICAgICAgICAgICAgICAgICAgICAgICAgICAgICAgICAgICAgICAgICAgICAgICAgICAgICAgIC AgICAgICAgICAgDQogICAgICAgICAgICAgICAgICAg ICAgICAgICAgICAgICAgICAgICAgICAgICAgICAgICAgICAgICAgICAgICAgICAgICAgICAgICAgICAg ICAgICAgICAgICAgICAgICAgICAgDQogICAgICAgICAgICAgICAgICAgICAgICAgICAgICAgICAgICAg ICAgICAgICAgICAgICAgICAgICAgICAgICAgICAgIC AgICAgICAgICAgICAgICAgICAgICAgICAgICAgICAgDQogICAgICAgICAgICAgICAgICAgICAgICAgIC AgICAgICAgICAgICAgICAgICAgICAgICAgICAgICAgICAgICAgICAgICAgICAgICAgICAgICAgICAgIC AgICAgICAgICAgICAgDQogICAgICAgICAgICAgICAg ICAgICAgICAgICAgICAgICAgICAgICAgICAgICAgICAgICAgICAgICAgICAgICAgICAgICAgICAgICAg DVLiWVOcKWPgIHKnHKRvWAJbKFSeTQDaOQv0Z4riVPIhESAzTY9aYBf1Vt8+TOmQNmRaFHO9teUqoY4M EO8sf8MuQDnjOAVoz7EcQKt4RN2YTQYhOQfdVA2SSW kddr1ESYSpQGHrpZPLt6baXtOiKSY0ONLdDimaCP9GLVJwY7kghhEzKXDaGBFUPU9VLhUzU2LpjM65PB ENCj4+QEeblkCvLadRPpApUCGyr6KiCRn8LA2MJWAuShnjz4IjMsVxQRMISVelKW5UTHQ7ETTuLHFjTh 4FBXCvK851zjOaIM3YCv8VXmKbBX6txl9NMpGcXILq GdbYDuq5LXsgAE3TmEAjYQlIqEIvpF9ePN2ymAIfQcedCVctuxMrEichePNzl1qnw4luBZRPQBK4IXrz Pe0yENZdPZV7IwU9GWYBLB0YTJXzLHLqyGIxIZRhRGGBXU5VNFuhUKL3GvpbkxYiiELxNXulAU0JNHZt bnQgMjIgMCBSDQo+Ep8MLH5nz5ZgGGbrZZIgLZ0eik 7VVBrSNyFzH6R9rOVkA9N8HJtvIv2QBBCdTXIqPpQnUPSICCbbKR1CNA4reiN9UI0TiNUiPMJvNUGbmG AuONg6T10wzBQdYQacQH4ZORV+Dillon+Fi5RXGYpZCUcILFdMvYcQDWECoOpX9FhX4RKp9UcJ2RyFD32hL rfnhLnKDgwCC0SJL4pEQSwZJJKHM8EgOShvK1sncJy PeMnEBZPKgJhN94tdQEfYPSfHIKdDJUmQg4KVKAeS1WhnuWflGnsfqXqSFNlFFXKNZ1DEWkrehEwmEIb qGuxIP35mDfvJJ4LNu4LYrXiYI3qty6QoQNtXo4XHHDyES8BZGRtUEQnGZBmVIJ6EFHvWkOdQBnwNLOm IXZoGSZ8JQNyPKMkNT2TZaOiVESfBGn2ELpyIPEoVZ Muxp0GCMBoIUCoGBxrZqTsKKTsRFJkZDeiNVGoNBMySME9WXOfBLBwHB6TLtKcSAJiDFW1DyEbDQQxTL Ynbr4DXIXtBTVcAWzzFJGnBTLgQAPmNIfcDXAiIPSrUccbRUStWIMuSY4UIbQvDNHmUMB9MAFnYRHvBT Puak6TFUHrJJUcIxB4XSXlPELkUELiKTdeDKPrSCE6 ANB9YYZmRNObCO7CTsFoNIMiJCSdJpRkYNReZLMndo3OPYMzWFGnQLAeMxIsFJUeVZMkVXrgKZWlDDK7 UlV9RTBqLADmLD3VNtLiLRNtISohVTHxSHJmHYKgna9IGOMePRIlLgH3PXZeDAEqNGUcSTjzWNGsUUN2 YXWaQRQwMOYhSR5SOsPkFIIvMXi6LaNoWAStQXBavn 5XRRXfQYBcGWZnOYApXQOcRGVjUSsvBHLwYVJ1ZKLuZZUeKYExBD1TKvXuITVdJPn3AvWfNYLbATBuky 0MWJKhXYGoSVE4IjWeUASmLRCiZJcoCDHwJLBzBTNeNBGwLBWuCV9MGfMlSZUfLwN0XFGlGFScYXAadq 4QQTIwHPOaZBN1DZMyOBDhGOBkTEj7xyFfoZAtDVi1 SP8SF0MxewVdKqHUXw3Ke437VJE1QGYnFv5TA2eeIk1aJLUyWGSKOd9ABPo1AfW0EdF0CSZ9TokcJwb5 YThiZTRiMDMzYTNjYjUwYmI+GRdiShMlRFb9YoEbGFGhSfjwBMFyZKVoHhLgJ4WlHEGfIy1iZONYWk7+ LAfiwRIwiHukUMAAKuPePpc2QUyjCAAXEl1H ID Date Data Source [id number] 03/14/2021 11:53:06 AM EDT [facility] Name Value Range Interpretation Code Description Data Stephanie rce(s) Supporting Document(s) Nursing Note [facility] XQZIXz4jEsQSAiAs54/FEDftMOWzb0WzIKemOOr3NOetHPInF4UiPOF7qJ1mBLL4ZZfICfEyBnQsCDTb lbm [file] X9JBMdAwC2WsGnVxJqBgFbKlFuZV7OZw7NMmJ8FWR9mTDjUu0GOeQiRJoSJgCxMK1WOZv= ID Date Data Source [id number] 03/14/2021 11:44:44 AM EDT [facility] Name Value Range Interpretation Code Description Data Stephanie rce(s) Supporting Document(s) Care Plan [facility] SBGIAq5gQeTFCiHr87/RFNitBKNzl2DtVLfbJEt5MUtcZFLgB3KiUXI9sE1iVLZ7AWuZKkOfZoRkZFTf lbm JqHveEKdXsLUTdApdSXuAuIFyoKrkicMNxPL4FuUX2LSRmF26aCLFwVRXdL8HzNTl1PL8+HIxaWZN8ks BwmP1WLDBoJRdy3wEXhv+w/6RGSdkYCTktPvoE2zXMtveKg6LOijG2YT0uo2CH/slIj5Ni41xR9nPVfP FMMoizHoxhhmWV0g9bcXVsEJB/8yB1ErvUnUyKXdXt FmLVKxFCCwQzLCwWuFfJ/6cGjxIVUPfhVVwfNIqBCJpZrGAJYPGO0QnTWjBkAyd1iNGhOWdcb+4xAxcO pImgHQk7kEficEadCv8g1qE5hM6BY7iteiTuZLioiUAaO6BCSNQGYmb3gS2WwmPDtLDzZBxsCPKtLS1w 9zVXLcghl4gpL2wD7fZyQXslugr8nHrCI39abXbuUg hzNND1nfIhUvR7vvms/MPWtkjlnItiaP2haN1ILxXzdXQ+kfURypdE5s844K3ZZLN3yqks12oIB2Nmd8 fg8AyVryyQSUtpvAgbEZb3g2pSwW9CNTwhv57h++Mk6BkSy+mPcbrXEGbmDDeaV/rudy++DDwVK1HqCF2 [file] ICAgICAgICAgICAgICAgICAgICAgICAgICAgICAgIC AgICAgICAgICAgICAgICAgICAgICAgICAgICAgICAgICAgICAgICAgICAgICAgICAgICAgICAgICAgDQ ogICAgICAgICAgICAgICAgICAgICAgICAgICAgICAgICAgICAgICAgICAgICAgICAgICAgICAgICAgIC AgICAgICAgICAgICAgICAgICAgICAgICAgICAgICAg ICAgICAgICAgDQogICAgICAgICAgICAgICAgICAgICAgICAgICAgICAgICAgICAgICAgICAgICAgICAg ICAgICAgICAgICAgICAgICAgICAgICAgICAgICAgICAgICAgICAgICAgICAgICAgICAgDQogICAgICAg ICAgICAgICAgICAgICAgICAgICAgICAgICAgICAgIC AgICAgICAgICAgICAgICAgICAgICAgICAgICAgICAgICAgICAgICAgICAgICAgICAgICAgICAgICAgIC AgDQogICAgICAgICAgICAgICAgICAgICAgICAgICAgICAgICAgICAgICAgICAgICAgICAgICAgICAgIC AgICAgICAgICAgICAgICAgICAgICAgICAgICAgICAg ICAgICAgICAgICAgDQogICAgICAgICAgICAgICAgICAgICAgICAgICAgICAgICAgICAgICAgICAgICAg ICAgICAgICAgICAgICAgICAgICAgICAgICAgICAgICAgICAgICAgICAgICAgICAgICAgICAgDQogICAg ICAgICAgICAgICAgICAgICAgICAgICAgICAgICAgIC AgICAgICAgICAgICAgICAgICAgICAgICAgICAgICAgICAgICAgICAgICAgICAgICAgICAgICAgICAgIC AgICAgDQogICAgICAgICAgICAgICAgICAgICAgICAgICAgICAgICAgICAgICAgICAgICAgICAgICAgIC AgICAgICAgICAgICAgICAgICAgICAgICAgICAgICAg ICAgICAgICAgICAgICAgDQogICAgICAgICAgICAgICAgICAgICAgICAgICAgICAgICAgICAgICAgICAg ICAgICAgICAgICAgICAgICAgICAgICAgICAgICAgICAgICAgICAgICAgICAgICAgICAgICAgICAgDQog ICAgICAgICAgICAgICAgICAgICAgICAgICAgICAgIC AgICAgICAgICAgICAgICAgICAgICAgICAgICAgICAgICAgICAgICAgICAgICAgICAgICAgICAgICAgIC EpKEXhLAJrULa8T0woSUIvKRIbTZ8bCOx4Nr4+HNvYTvZgONE4zjEwxH4YUF7dq6LbYSczDTMdk4MqBB h4QG0KDQKsPBwxNV8ZBXojew8UAGXnMASavXAIq7rk FmJfHYP7XKPiJyyfZL3RTXIpF6jxkmOoPVMmZKUSLB1VVuEbJ8UsoP91CLWVYr4+DQplbmRvYmoNCjI1 PPNql0OyBCd1UF9MZXElOkgbu5WrWhLqYEVVTHvyRI4BECR6PVA7QDQfGv9EYZRjV928wcMtJM6KYp5R MvDcFI3mad7WKiAvOUEoFjiXJnh8UQjgXC5MmPZjGM dFXABbMVZeGH0mTrkwODgscoNyUsdzgOThf9tmh5jrTZDLIQX4TVvdNa2hSLOlOMOkMeD9SOFTUM2ILT UyIUDmqITpTKFnQZDKAG7FCHcjMDW6GwckjrTfqEDjEWjrQH8AIGUfosVmKdAxGIFKSEi+Ck7KIW6am5 DpJTnvZaOaLB9ncy1BTFuBDhGmC5I8xCFmH9G2FOzv Up7OPVIvYKPgOkFqCHXPOCfgJQ7YVD8uzoD3EN6PiBZsPJQbEIDlmSFzZMb2K60zbXBpBJnvNI7WUSM+ Dillon+Xg5DYNUfHBVwDXVxScXiBGLSWsFuV8JiJ9PRh8ScA1CkRH17tBqvxrXfCJwwZJ3TTA9uNATjYUGG OJ1LeXFzeG6yamLpHYLaESXAXdLxK86zcLSlZUGeTE Z0SYWvBj0RNLImZ3KqwgYlrWdojvFpDMDaBPGHIP8CWEsgczJjqJDqnZprRU60oIqzYB6DPi8LPpTjSP 4vze3PsUSaYx2FSGDaVZ9RDOMzRAXoMRJdYMX9CVFjSlVeSDoiRMZrYZIkHXK2JRNcRGXaSC2ZMhOiHD RxEiRiWnToGMYmBIIdbo5CSKTpDSWuSLh1UaZkMPLc ROHsOOgrKOGrJMMtFNA0MGJcARDtCO6UAbDwPUJvMBVcBkYsHBJbVXTsyy6UMHYjROUmKSBwYgSpZTGv UVRxGEneUKBhZHNyMkn4GZSuGOKaXQ2DGgSrGCKeARB0MDMtYBSqKGRtjx3GVXIqCOLySbh7WPCeVCFs JQYqKLwwSBHjODCuJqD9NAUhQXXiVP8RYbGnDQKuZH K6YwJyLECrIZUfqz0HKLTiTYQgWHLwIFQuEIJxMLUmCInvKAQsPHH1VKJ3OYCfFYLdAD8UVaFaGGPaKO W9LJXtKXLkOAGbvi0FSPHeDALmVgh4DfSlOVGiCRFwKUbiDMNmUTL1MdLjHVLfJUGwVY7KIqWvVQGkQY ylXcszPFAzGGRqjv6BMGMoTGNaYQTpTOTxWREcYBMl EQldKPLcOPE8NZA7CBOzFANhFE4PXfKoBORzUVu2JWKrCRXcEQQbzl8UMYLsOUTjQQG7OnUnWTVrDEJz HUdlJLKvBUZ8TTAtLPAyJXToYH0TOqEoMFPhHfEeCFWtFKDiHUEidf1HVPDkWJOcYYEpIaDkQCFnHNSe SQeoIVMiQCQhWBf2TXIaGDHqLS8GQpFyTTRnQeW7OJ QbGXPpLFOfxs1BENObBDBoDmL4OELjTNPbDWRbBJb5qtYmxOUdGMo6LP6ZS9GqxzIpZhsADl9Hh062VX T0XADjFt4LU4tfWe1kZUCuMHBHDu4FPDm1BGI7XRVcRRT6UhN3AkJiIMcoQhG9AtxcRyOdRGGgUgC+ID zlXVo6JCH2NEp3YiY1BFRnTRC0UdwbXGUsFPNcJYSp NO0yGLZOWg1+KDyyrKWovJxdDXEFKtJaMeI6UDfsPRSMMd1A ID Date Data Source [id number] 03/14/2021 11:35:44 AM EDT [facility] Name Value Range Interpretation Code Description Data Stephanie rce(s) Supporting Document(s) Nursing Note [facility] ONYZWz9fQrKAPfSz42/GVYomSJDyw0SjGRiaGBh4UEzlRIGdG1WoXGN3fI1cXNB2XVuBVkGwVjQsKJGo m [file] MJlhPx7OMSXPU2HMMg== ID Date Data Source [id number] 03/14/2021 11:12:00 AM EDT [facility] Number: [id number] Reported By: Maria De Jesus BARAJAS M.D. Signed By: Valeri BARAJAS M.D. Name Value Range Interpretation Code Description Data Stephanie rce(s) Supporting Document(s) ID Date Data Source [id number] 03/14/2021 10:21:29 AM EDT [facility] Name Value Range Interpretation Code Description Data Stephanie rce(s) Supporting Document(s) H&P [facility] TGWEYt6mXeELYpKi41/CTLbaXNOdz4YuLVzrXPu6EXtkMUKcQ0SpNDN9tY8nENN5RTgMBaJsBsSiVYGs [facility] [file] eDJaFt0LLEX5OvULOnTzJC5BSMs= ID Date Data Source [id number] 03/14/2021 05:34:50 AM EDT [facility] Name Value Range Interpretation Code Description Data Stephanie rce(s) Supporting Document(s) Nursing Note [facility] DJRBEi5lObJEKjQo87/SLQdgGNLqc6LlXTjiQOz9KYmtXBYaG4QnAGX3mB5vLHK5LAyEGaFaXvUiXXMs lbm [file] o= ID Date Data Source [id number] 03/14/2021 01:22:47 AM EDT [facility] Name Value Range Interpretation Code Description Data Stephanie rce(s) Supporting Document(s) Nursing Note [facility] LYZITf3gLgFOBmWb89/CASjkHSBog6RcDRtsHDz3NZuzWGCeL4OyJVQ6dJ7lGVS1PPjVKfBeElJmYLGu lbm [file] Ys3AWqO3RVG8yCRlIe0BGmHeHgXIJeGpOE6KCWh= ID Date Data Source [id number] 03/13/2021 10:37:10 PM EDT [facility] Name Value Range Interpretation Code Description Data Stephanie rce(s) Supporting Document(s) Nursing Note [facility] EBZENh9zBoYXDyGf92/ESByxFHMwo2FzAAyoSZs8IZuuBHZgG5LfQWE4dO5nKNI1NToFOrMiBeCmSQUn lbm [file] Jl3VXyL3UUV2hPWiLt3WPmTqQBTHUyGiZF6UAXw= ID Date Data Source [id number] 03/13/2021 07:24:52 PM EDT [facility] Name Value Range Interpretation Code Description Data Stephanie rce(s) Supporting Document(s) Care Plan [facility] YHGACo4uMeCDViUb38/WNLsmCRHfr0QiFAjwHOr1VHdgTTShY6TsKVS5vS2eTXR2MWjUKyYeRoYkUGJx lbm [file] hadoop administrator+9D9OT7//+AQKAnkj4NGbwDdmwLV2hU5Z5q5odCofRtl+a6nGsLjSKMnnvOf3MQBzKTpd26f9GAvi [file] GfJI89rrfsawqV7ClddRctqEntZHekkCTT9jBX57pPKn4cWsgiDTrrU28k+UVyM7cceaLRWE6R3Y/Mohsen eIPrN3HIWYlFUuyBS8VK5pUfLlJLU3/fMxqANKJZCFunKuhRrsyzdzefziAtxVmVgdUDaAiNT47CzUTa 4fZBhPzVExxZ/PWSRuKK29MZYVqVC1LPUkLRclfAlD aS3YqtEvxqbwcMOzFyJyzFxDTLYTfwhhzPFFpLbQ4loekxTINT3ho9kIGzjCxfIxdWhV7UHpG4m5qp7p HgqQpP7wYOwagB1nDYNwCxHkFVviNOM5uEJ4cn1JUeSwtFINxe2w+BE366LosibDaflMHIcEvA9Kvgkj gSP0NO3gCpCYEHKACkWMEznYxuI3avooGfJHk6UOkD NWlrMUxYqBsHdDvSOsREng52VwS/lDi9YwpbcPTjiGeWYkSZitFrtn5d+cLxq9fpFMwJvy7V0n9pRojZ gZ38mkDf8DXTPe1MWW6vYzcrKhL0K6Ak2+wO5q4uCebodgCoVHUNQrFIug0OWv3jHHNT/NFI6OuwpgoF AtsXMoBjMyVZOn8DdhSQ8HkQCynTkXCJmLZ5wRS+[place] [file] DQo= ID Date Data Source [id number] 03/13/2021 06:53:54 PM EDT [facility] Name Value Range Interpretation Code Description Data Stephanie rce(s) Supporting Document(s) Nursing Note [facility] NWUYLa8iQdBWEeUg62/MRVrrEEOhf3YjWGjoJJa6MFzvHPNqJ1QnLDE5xP5zNMF9MQuVVvHtHqQlXKUi lbm [file] AgICAgICAgICAgICAgICAgICAgICAgICAgICAgICAg ICAgICAgICAgICAgICAgICAgICAgICAgICAgICAgICAgICAgICAgICAgICAgICAgICAgICAgICAgICAg ICAgICAgICANCiAgICAgICAgICAgICAgICAgICAgICAgICAgICAgICAgICAgICAgICAgICAgICAgICAg ICAgICAgICAgICAgICAgICAgICAgICAgICAgICAgIC AgICAgICAgICAgICAgICAgICANCiAgICAgICAgICAgICAgICAgICAgICAgICAgICAgICAgICAgICAgIC AgICAgICAgICAgICAgICAgICAgICAgICAgICAgICAgICAgICAgICAgICAgICAgICAgICAgICAgICAgIC ANCiAgICAgICAgICAgICAgICAgICAgICAgICAgICAg ICAgICAgICAgICAgICAgICAgICAgICAgICAgICAgICAgICAgICAgICAgICAgICAgICAgICAgICAgICAg ICAgICAgICAgICANCiAgICAgICAgICAgICAgICAgICAgICAgICAgICAgICAgICAgICAgICAgICAgICAg ICAgICAgICAgICAgICAgICAgICAgICAgICAgICAgIC AgICAgICAgICAgICAgICAgICAgICANCiAgICAgICAgICAgICAgICAgICAgICAgICAgICAgICAgICAgIC AgICAgICAgICAgICAgICAgICAgICAgICAgICAgICAgICAgICAgICAgICAgICAgICAgICAgICAgICAgIC AgICANCiAgICAgICAgICAgICAgICAgICAgICAgICAg ICAgICAgICAgICAgICAgICAgICAgICAgICAgICAgICAgICAgICAgICAgICAgICAgICAgICAgICAgICAg ICAgICAgICAgICAgICANCiAgICAgICAgICAgICAgICAgICAgICAgICAgICAgICAgICAgICAgICAgICAg ICAgICAgICAgICAgICAgICAgICAgICAgICAgICAgIC AgICAgICAgICAgICAgICAgICAgICAgICANCiAgICAgICAgICAgICAgICAgICAgICAgICAgICAgICAgIC AgICAgICAgICAgICAgICAgICAgICAgICAgICAgICAgICAgICAgICAgICAgICAgICAgICAgICAgICAgIC AgICAgICANCiAgICAgICAgICAgICAgICAgICAgICAg ICAgICAgICAgICAgICAgICAgICAgICAgICAgICAgICAgICAgICAgICAgICAgICAgICAgICAgICAgICAg ICAgICAgICAgICAgICAgICANCjw/nNLwF2bspCYyffV3H4pzVf4IJb5CNZ8cd8OlYCCcXPnwleNaIgkY LkDnUXOfSkcRSev0FAdkBW6XaJWiE1IyO4QaXCfjUQ 9UOVIpKAFiaPWiRJJtLDGrEvN1WJUhXTolPT5OzFHzVSzzWGTtOIPaIE9FFZXfA002thMcTI9TEq1QCb OyXZ4zuk3QHrJpPTFgRzfYIpz9ZKxxSW0LtHWbwYZjPcHdSOYPXcLcQ3uwr1GwBzPrPEXIORxyVP7Pp7 VudCAxDQo+Ip0CQO8mv2XpNEjdTsQrEY3epd2LZPoB RrTvN7WxeYlzAA28gpUrfgdvMz71NKPcnTOQh2OhNiHKH3D5KB5pPIYZANR2IKfsLh9cTEBsBYJ7DwS2 YZHTPZ7HWKXnOCUgiDKnIJOoVHGGNW0PLJixGKG4GcfavtZhcLMvMRtoES4WWIXszyEcOvCgFJKUHZf+ Kt0HRV8fs2UtIXljOZJxSW0htc6HBUqDJaPaU1N6iT VzO9C4VMwmAm3RVNMtAZPrPwSqRVAQAVumLC9DNY7prcR1TR6LtWPhXABmFPSgxMFyRPu1S65oaUAbVW dpZJ6WZIS+Dillon+Hv8RCEEuLMPnVGRfWlLhGTQTDePtW9QhG8UZi8JxD0AsOM35xGcemjQzNMqzHV4QAV 0yQUJvTGUPTL7MsWQwxW3dxjFhDtYtBAEBEhDpG16n gLRiYESxUJTkSKBzUl8ZGXGdZ1VnigJszWrqivGsWLRpPIHHRS4UMEuupmFzyZLkcNetYP16xYxbOH9E Qx5XPhYjEM4adc5IqWFyTn5XLBAiAL2TCELfGNVdIJZvLLW5BDItOxHmCOqkUCOzRPChRKR1HWOkYICz DJ5KThWtKQOzKCg7NSctKFKaCPDjar1HIONzXPOtCL LyWVLsVDJfTCGlJDdiCFIpQNCxMPQ5JTWtMDUhKB0UQdBnQXBeGTDbQxsmDPXpBEEkib7DODJzCJKnVg RmTrYfNNFpZGQcYPuoLONnMNAhAzrmJGHkABXiIP3KCkFnCQSnKHM6DDMeXALhVMHlin1ADGOmVVFmGx G6CbOaSARlUSUrPFjvENFeKCL5ZbQ4SGNfJQIpQV3C PsXlWKJhHKD4GyYpIGQdIHDnle5OMNHxAFTzTBWuVZKkHBBvOHVgHKpxHGTaEWU6LaS6HCVxSHSyNZ6L CaVxQPIpFMy4LEPjMYEdJWIxzf3XDRIlENGzNeb5JAYsTWHlGTDeBTitGTUqTLM3NRN8CYTlTHDeCH2E XjHyAYNzSZmdZjCuPSVmFSBscb9VKFQiUPZsHQYkYy GyNIWgVRDcSGkrUKOyMGP3FSXcONRhGOVrST5FJrKlSTMuPOi3QvStMYJbKEDqst4WNCIpRSKtBNc6UZ RwXBRwBRNwQFuyWBWpRAWqXQP0LYSaDMVoCV8VYeRrXTUaZtS0BNHwOKQnEAFqdv9CVFPtZJMpHLV8OV KaSHJiOXLfRIm5mtUplOQcUJp2JL1MR8JmysUuUzNN Ty1Rt984IRD6LLFcZo4QY3omYv2eHYFxCXFMPu7ZMZu8IliqLZPlO1M4FyNhGADkSNZ4XtElZsQ8MBwu NTNlODk+YAmnMHY8NaBeRVdlU3H9KpB1UMZ7HILtCAGfT3K1F0W0PX0mWWMFGt8+DQpzdGFydHhyZWYN ReAzQEe3ZFddCHYKXk1U ID Date Data Source [id number] 03/13/2021 05:56:16 PM EDT [facility] Name Value Range Interpretation Code Description Data Stephanie rce(s) Supporting Document(s) Nursing Note [facility] PEGSNf6lIpBNLpWr09/RMHyzTUPkk3VlFAwcZUq4CUwhKVEiO9NlDWG0cE9cVDX8IXsMSrRvKkUpHDMq lbm [file] patient registration supervisor/VbYra/91DqJR2qftp6jpOKWoXRB6LQlBot0r7b [file] FuYUbwLXM0W3GmTiZ6BbGxNPFeUjM+WN7iMAs+Ky0Wu7CnadI6ftLbYZupIKS1Ir3CMXCIT8IXMb== ID Date Data Source [id number] 03/13/2021 05:15:24 PM EDT [facility] Name Value Range Interpretation Code Description Data Stephanie rce(s) Supporting Document(s) Nursing Note [facility] VCXPVe4uOsQBSxVt83/EHOscPGUtw5BcCAtjDHm3ZZtxZLYhN0SuIWB0oG0uEUP7VZoSBiTrOqPcJKZi lbm [file] DLL9YZB6RuUoPB7NDf0GCfD7DFK0wSHaZf1PUcNiZewELgGeLZ5KMMx= ID Date Data Source [id number] 03/13/2021 05:01:36 PM EDT [facility] Name Value Range Interpretation Code Description Data Stephanie rce(s) Supporting Document(s) Nursing Note [facility] HRZDNw2uBxRCMnQq28/PXYorQNLln5AaMSjqHHm0DIysKHIeL4AzUMR5xO5rKUZ9FXaTZrGoVfTiORAi lbm [file] KdRT5LADb= ID Date Data Source [id number] 03/13/2021 02:53:46 PM EDT [facility] Name Value Range Interpretation Code Description Data Setphanie rce(s) Supporting Document(s) Nursing Note [facility] OWDHHq2sOdJSPcGm58/LUNzfNGBgn2BfUMhfIMh5QZvdLMPyU1PfDGM5aZ5tVNB5DKdEQgDpDrRsEJVd lbm ErTdiINzZzNTXeBdsLTeNrXUoxUfjjzDPoRP5SdJV3LHEsS09lHDFaAIVsH9QbFTJ8FHW+Tu0YWBAtdY PbUX7BNikY1L4Asea6Bf9jeh6Ajh+cEFxIDTgs2ppeR9WwdkECkif0eS4SKGZ3Uoc7+Nisd11Qkxwyvk V/ngYxopRNfKAQYNCNfqPRMzCm+e+dRDasVQmD5g/1 d1Uzvzh648imnL9JSd+H7f4Ug+RKZ9DI9GfL/7oLdv77aoYJYyWmWYEnnvjZaS6BGP2Uwag2KymUBHsb Y01rreld86rCL8LuO7ujl2HekGKObuz5ADDUmX5MKMxq1kmFg8mhkQf2fsSeQy1GB4sH11xgryc5r6Yi NIbQBC6jF0lnhqszV4mdbq3MNpYOFL1hgFr43lIvFZ XwFoOdr1gzAXuFwl+QudBJDtrAH8eQpBkC+vetFBTIPPBwwVKW4dIGMVUSpncUeAMyLHXDz4h0puy7Pj Z23SohqU4fTyVmnv82wQ9/0jArxKJgmVySlxEqh9HceVOYA/BDiB9fakQ1g67FXJT7EhxP7jwerGGnAP jTPhLhb8jeug0iBZ0Ic+h4ogY4xVg9Zqhc2zzzr3Lw C6XPpafUAW6f0Ei3kKj8jUqQxjkCwgN0pYgso9SpK/P8ejX/+XsUndp//Nec/Dgc/Rgb92N6wHjLe0hN MycBfOkRpASDTnqVu5EuzL2eI1gUfDb/jM5ym0tco5tMca3Nwcazh3P9tNOuN6LmXBl8UQJM+Gbnq2Uu sXM0iiPYEhfXaGJzAQW9O5Jw5D7WohPsq55EN7+hardy [file] ICAgICAgICAgICAgICAgICAgICAgICAgICAgICAgICAgICAgICAgICAgICAgICAgICAgICAgICAgICAg ICAgICAgICAgICAgICAgICAgICANCiAgICAgICAgIC AgICAgICAgICAgICAgICAgICAgICAgICAgICAgICAgICAgICAgICAgICAgICAgICAgICAgICAgICAgIC AgICAgICAgICAgICAgICAgICAgICAgICAgICAgICANCiAgICAgICAgICAgICAgICAgICAgICAgICAgIC AgICAgICAgICAgICAgICAgICAgICAgICAgICAgICAg ICAgICAgICAgICAgICAgICAgICAgICAgICAgICAgICAgICAgICAgICANCiAgICAgICAgICAgICAgICAg ICAgICAgICAgICAgICAgICAgICAgICAgICAgICAgICAgICAgICAgICAgICAgICAgICAgICAgICAgICAg ICAgICAgICAgICAgICAgICAgICAgICANCiAgICAgIC AgICAgICAgICAgICAgICAgICAgICAgICAgICAgICAgICAgICAgICAgICAgICAgICAgICAgICAgICAgIC AgICAgICAgICAgICAgICAgICAgICAgICAgICAgICAgICANCiAgICAgICAgICAgICAgICAgICAgICAgIC AgICAgICAgICAgICAgICAgICAgICAgICAgICAgICAg ICAgICAgICAgICAgICAgICAgICAgICAgICAgICAgICAgICAgICAgICAgICANCiAgICAgICAgICAgICAg ICAgICAgICAgICAgICAgICAgICAgICAgICAgICAgICAgICAgICAgICAgICAgICAgICAgICAgICAgICAg ICAgICAgICAgICAgICAgICAgICAgICAgICANCiAgIC AgICAgICAgICAgICAgICAgICAgICAgICAgICAgICAgICAgICAgICAgICAgICAgICAgICAgICAgICAgIC AgICAgICAgICAgICAgICAgICAgICAgICAgICAgICAgICAgICANCiAgICAgICAgICAgICAgICAgICAgIC AgICAgICAgICAgICAgICAgICAgICAgICAgICAgICAg ICAgICAgICAgICAgICAgICAgICAgICAgICAgICAgICAgICAgICAgICAgICAgICANCiAgICAgICAgICAg ICAgICAgICAgICAgICAgICAgICAgICAgICAgICAgICAgICAgICAgICAgICAgICAgICAgICAgICAgICAg ICAgICAgICAgICAgICAgICAgICAgICAgICAgICANCj w/gKGtP3zneWHtekS4V7wkOn5QYr4LGH3np3PnROTcSGfiylJbQehPYwSfSQGwKbjWYtj5IPnpYF7YmP VkI4LdV6QqWWlfIY8TOCLcAOViqRXpAGHlCTHsFqA9YMIdNZjdUE8EuNXrIXtiGASeDZPrQA6SICKbY2 02czHsGI8TPg9SRpRwBQ1umr5XVjHqZPXxKkdGBnj2 OTpmWQ6OyDMzmQHgGLQsMHWHJpTnA5lpj0YmVeVhLZMXOKzgSN2Dr0DziSTgKAh+Wg8KQJ4vu0SaUDqb VZWqGA6gkl2ITEgFNbOlJ3MyzWqbMI58kvWhdjbtWi49KIDxlJZNb1SkWnZJD5N4ZD9mYPFDWMW8FEyj Js8mWABySLFgKmB2YGCFWE5FNWJaDEMqoJXkGKUsIB KXGH4KJTvyRXA8YzacchKaiUJgVPqkNY4EWEBlazJgXbOtDPUGXCx+Ii5IVN5cz4OvVFbmGaWiKJ0ypo 0UOFqNObToK7C2aERkA4Y4QIgbRt8KZXNzKLOmKmChASGUAYvaSY7HVM0yqkK4DA2GhHFlGXJdBCFdyM WkQKf6O41ttZDcUWjhUE9NCYK+Dillon+Fn7CTYVcRCDs YHFvLbGvUYZOWhHuV9VnI3AUo3XmI3EaPV26oHrlzkIxHJrkKT9ZMA3lVGYiMURUMH0EfFXofE7pceOz LQVsGPPPVaLaN37zbMZzFKItKHAjOQVwGp7WYQOeD0PvbhKiaXmqptYnULOeHHWYSC6AZXfrhqNfkJKa xIokUY48bTzaVL4LCg8JCtKrNT6ahh6QtSMdTl9PTK YwXi9JPIEpOQZnSUFmLKF4AIUgOoTuMOppBENpBCNgLMU0JWOaEFCfXO0JUjLpGXRrUgUhQWLoOWIoLF Gpyj6JCXNgRENmXtftYMPjTRGoIGGpBKwjLPGpWGGiWML3NUVkTSJzUS1QFnPgDJSjRKKnMdLxCQUjWN Zrbi7YOTMpOMAwHlXjSsSfHVPuFFWaIMzfCSIkESN2 Uxd0NZUgZRJiYQ5DQgHkSZRcLIK3HVNlVEPdAIDzru7FMMNgSQKaWOI0KNHlUYEtERUfQOxcCHGdPXS1 KsL3UAZwMIPhUO0RRxXbSZJbFPS7QaKoLDEjTXQnqx8SVZCdXEEgEwCxTLPsQGNpJSFnNUfcVSIsZVO2 UsB6ZTGqMLNpTT2FNkHkPBJjVFa6HhQtPMSoVHPpsy 2QXTKkWVYkEEe9VzVhPOShTMRzTHpcVUGyZKS0SZItTIDfJORaVV2VXcLySWNvOAazIassAISsTCAcgk 3QLEKrDXBbREChYSHkDFCoYCTpDNehWHYtLJAgQxh0GAVlXNMbJY6ZIpBhVIJyWtF2KoqaFQRxCWVlnu 0KMPVeCMFbTJh0HjHkVQBiIAJsDIolOOXlYIEaJUNq OYCdDJPgKL0RLcCwLIFuXiG2LvhwPZRrOINjio7DVRBrPPXoFqQnHeHpFJQrOSEtZAjtHSTtQFLqZHm9 OKPjSCPfKM8XFkWoUTMtOuUoZmHsAMLoJVRdus3VfEUbqBpebw3UKYlCKe8PwAdaATH9IHwwCq7oyWGc SeNvJCHWAl7GkuThVIUsJVSUCHxvZQZiRDWtPGMgMS EdTzGlElHgClKwTgUiWBLqNVSwJTQ3MCB1QtE1CKPmQyPxHSEqREFyV9QeIkM3RWI2XGZdZGSqZukgSD Y+MZ7gLVa+Rb5Ij7IzzjQ0uyNpBAdtSrT7TR2ENSPUF1TGKf== ID Date Data Source [id number] 03/13/2021 02:24:18 PM EDT [facility] Name Value Range Interpretation Code Description Data Stephanie rce(s) Supporting Document(s) Care Plan [facility] VEARYz2dLbOXTzAg82/PSTrkTBNfg7OiTZcjPKp7XDwrGFQwR2JhZCK4dN3zFKU9ESrSRbInJhIlCRCu lbm [file] o+1lyGZKItvNWp4V7te+[employer]/HIvLLltdtVtdirlIpEr2+7z6uq70wxlOZHDAApLnNwFtFGldaTmTjU7x [file] [employer]+uEC9szCh8JFipVi6Ebv6qAwp8v5mB/BqQ8zyv3w [file] AgICAgICAgICAgICAgICAgICAgICAgICAgICAgICAg ICAgICAgICAgICAgICAgICAgICAgICAgICAgICAgICAgICAgICAgICAgICANCiAgICAgICAgICAgICAg ICAgICAgICAgICAgICAgICAgICAgICAgICAgICAgICAgICAgICAgICAgICAgICAgICAgICAgICAgICAg ICAgICAgICAgICAgICAgICAgICAgICAgICANCiAgIC AgICAgICAgICAgICAgICAgICAgICAgICAgICAgICAgICAgICAgICAgICAgICAgICAgICAgICAgICAgIC AgICAgICAgICAgICAgICAgICAgICAgICAgICAgICAgICAgICANCiAgICAgICAgICAgICAgICAgICAgIC AgICAgICAgICAgICAgICAgICAgICAgICAgICAgICAg ICAgICAgICAgICAgICAgICAgICAgICAgICAgICAgICAgICAgICAgICAgICAgICANCiAgICAgICAgICAg ICAgICAgICAgICAgICAgICAgICAgICAgICAgICAgICAgICAgICAgICAgICAgICAgICAgICAgICAgICAg ICAgICAgICAgICAgICAgICAgICAgICAgICAgICANCi AgICAgICAgICAgICAgICAgICAgICAgICAgICAgICAgICAgICAgICAgICAgICAgICAgICAgICAgICAgIC AgICAgICAgICAgICAgICAgICAgICAgICAgICAgICAgICAgICAgICANCiAgICAgICAgICAgICAgICAgIC AgICAgICAgICAgICAgICAgICAgICAgICAgICAgICAg ICAgICAgICAgICAgICAgICAgICAgICAgICAgICAgICAgICAgICAgICAgICAgICAgICANCiAgICAgICAg ICAgICAgICAgICAgICAgICAgICAgICAgICAgICAgICAgICAgICAgICAgICAgICAgICAgICAgICAgICAg ICAgICAgICAgICAgICAgICAgICAgICAgICAgICAgIC ANCiAgICAgICAgICAgICAgICAgICAgICAgICAgICAgICAgICAgICAgICAgICAgICAgICAgICAgICAgIC AgICAgICAgICAgICAgICAgICAgICAgICAgICAgICAgICAgICAgICAgICANCiAgICAgICAgICAgICAgIC AgICAgICAgICAgICAgICAgICAgICAgICAgICAgICAg ICAgICAgICAgICAgICAgICAgICAgICAgICAgICAgICAgICAgICAgICAgICAgICAgICAgICANCjw/eHBh F7bupLXmheY5U5qhHu2QIg3JZI3pm5ZoNUPxFLawqzAjPmqPCiQzFWXmKuyBBpf8HTwlHJ8IlXNkN0Kb G7VzRProWS5FGWAwGAWqkBOwWWCfRSSpOpN0HAWhMU naES2QuZLmMQynHUNgQFUjIwQlNTNdLS1JILYxR880ezFoCw2BUh2QRzDqBU0idm9EGfjnSKLhIubVKl h7GXmaCC9LmAAirZJpXIAjTVQCPfJtJ1jhp3SnReoqRDADBEacRD9To8EefUEhNVt+Dt8SJD9rx9KlRY ywTYCgTL7yzd7LXAoBRwMaD8JjwLapYSOraeWvESoc ldLwmPAKa3TbAtIAR4X7EC8oZSVLIFZ9DNkwEd8cMUBfDQTiNpVuTDKGLK0RVYJgPPCafUPvWDVdPZIC JP5ZHXyrCMK9CzyzymZluTUsYSkeXS8RYXIiltChChgfPHKQJDn+Ag6PHL2am4JuESmkCFHtMX1khk0B JOiNFmUoZ0T0jOYzP9B1ZPgmIe5AFCCjZZKgEfCyDK KFUPuwIJ4OBR6favL0GM7AhGChYPQtQENbrNQsFIl7Z53bvJGjGXexDF1BHRX+Dillon+Hb5BDKPyUKKsAZ WjPjNoVQEUXhNgF0DjD7PUv0ReW0UdYX59oEwpfoSlBMccCK4AQF0jKKSjJFBNWB8RjKQcbO6cypCzVk MuZFPFTgZlC35ltOOsCLPgHYR2DOCzNb2KJBCgF1Ie miAzbDatppSxUXPmMYFATN8TZGxfesZrtUDdjZzrDK55pShyVE1AIh4ZXtMmCC4nab9BdZJjCr3AJSQe GQ1OGXUdORHzDCIwDOG3BSQrNnGmMXubTCZuJYXbPEU6SJSaHPBuUV9MReAeTRJvYxE8BPhmBUYgLJXj pw6YKTWiOJGzCRA1ZFAwQYTwOJYkDMfrKKXaMGXlEC F2AJRhMZBlZM4CQzJbXDEyJUK1JMytTEAaHMHwlt3ASOKnSRCmAgyrXmVsHLTuQSQlBXhpVNCmCLW0CC wePWQmTCDzND9HHtRtDAExXDQmTFJcXUTiEADpld6LALFuYHRaNIF1XUXwZNYuVXUxGLuzINFwEWF6PF P8JRJcCVSxTA2XRyBdXFRvATL4CUAyOAKqLURijx5X NVBlKHSfTlRtAZXcFXFxBJDqPFbgTGWjLAZ5Tqh9NDKxJKWaEZ7ZRbYzPQYbOKI0GZWuELRmSDZaer9D MIEqFOGoPCLgALKuCXTtHBPwKDqvIRJsWGV2VzF5KKCbYSNyNA9FLrGbKLMxFNc2ORJfJBJyKMTkhw8Q ZXIyLKWuCAE5EXUcMXTlEHKvZJkyTDQwBOUnYcAiUP GwMYBkPN4EMfYdRHBrUeQfSINwENTbIKXvqf4OMATnJYBeNYW8VCZjCMDsLGVxAYxoSMQnTHAbIYO8XJ FjEPMaXT9BYsOfHQHkHrX9NKckEGEnRBDjed6APJChSVBvCcY7IOEvEXAuVEKnOLdkNZKqTWVaDEI8BS AwFFWbAH4XFyAwFRBxEbRlVQIyEJStBQYuvb2GATEp SYAzCRl9CAWcNZXtSYKmFRapJXFySSN4HAM4OYWwLMSvVL4VFhSqGDWoMlS4GHIeOZKwVMZyqp5IgAAj sTosce2YDQlFSi4QwKlfHFCdOZpoLy4atJSwKNZwPDWTLa2HtgPvKPAhUDXMYDgsVZAcRSPoIlPpGGvo SvVbW3C2OHd0EHZcApb9HlClJmd0U1G5XwO5WAUaMJ Z7BEVyCTEhKXQpCSjlHAAuMyS8WuFmZDTtQtK+PQ9wMXi+Xk4Gv4GzmmL9icYbHSioKCZhMZ9ZOHKOA8 YNCg== ID Date Data Source [id number] 03/13/2021 02:22:43 PM EDT [facility] Name Value Range Interpretation Code Description Data Stephanie rce(s) Supporting Document(s) Nursing Note [facility] WIVGZg9bRzGDFwJs44/TWLlrGOIex0MsPKkdENb1MSoaZCDgZ7ShCOE6hC0rDVF3IYjAOdYoPhDkDBRg lbm [file] ID Date Data Source [id number] 03/13/2021 11:15:10 AM EDT [facility] Name Value Range Interpretation Code Description Data Stephanie rce(s) Supporting Document(s) ED Triage Notes [facility] MCXTVi2gCwQSGaBf19/EVMaoDSYpd4YgQVaeLJx2ZApnRCShC1UoSAM5lL0uBCJ6DJtKBpQdZtDwEFEk lbm [file] AgICAgICAgICAgICAgICAgICAgICAgICAgICAgICAgICAgICAgICAgICAgICAgICAgICAgICAgICAgIC SkXLBmTKHuWHAsBUJiCDPdVVYjTHMyFLDtRBEhQNLePSHkHX1DBUZbYCCbLWZaUTWsWLQlZNSvOHYbGJ AgICAgICAgICAgICAgICAgICAgICAgICAgICAgICAg ZBVjNAGbNUFkWZMtBSBeUTOkOMCwCQHbHIIaCGOhHBDaJEDtJQWsULYfIEMePF6BFPMfDUJcOEQwMOUj ICAgICAgICAgICAgICAgICAgICAgICAgICAgICAgICAgICAgICAgICAgICAgICAgICAgICAgICAgICAg SNAdBPNwOJAqKYXxITEpHMBlGOQlCQWhIPTlHU2SMJ AgICAgICAgICAgICAgICAgICAgICAgICAgICAgICAgICAgICAgICAgICAgICAgICAgICAgICAgICAgIC VhPAHlFUTnCUIcLDNgTSUkNMHkAYGyGQHtLQUuIBAqFSAwZMRgNN6RYCUiFUGcJEGwSSLdWWOkQCEzED AgICAgICAgICAgICAgICAgICAgICAgICAgICAgICAg LCYoFVFbLROuUTYjOBMkYRJdNIBlXPDjRFWzYIJyUEJfVLFcLXFbKKHrNRZtELLcTQ7ENVSgOJFqIKNo ICAgICAgICAgICAgICAgICAgICAgICAgICAgICAgICAgICAgICAgICAgICAgICAgICAgICAgICAgICAg ICAgICAgICAgICAgICAgICAgICAgICAgICAgICAgIA 0KICAgICAgICAgICAgICAgICAgICAgICAgICAgICAgICAgICAgICAgICAgICAgICAgICAgICAgICAgIC XgLPElCAMyMURkIEYyGRGnDSLxNQQbBKYfXCCrPFYoIMTdAMIsIVUiKB4EPIXtXMSrCZXhYZWhXEUaUB AgICAgICAgICAgICAgICAgICAgICAgICAgICAgICAg VRQzBLSuLJSwYHNlVJJxJCMeGETwCFTbTMOeDZQrTWNqEDMyCFTtVKWwBBWtCGGfOFMhCX1TVRTfNZAt ICAgICAgICAgICAgICAgICAgICAgICAgICAgICAgICAgICAgICAgICAgICAgICAgICAgICAgICAgICAg ICAgICAgICAgICAgICAgICAgICAgICAgICAgICAgIC NnKY1ZJJJpBXUhJWOnJUDpSARoZLSkSBKlXFOlSYPpBKGtVCCxQKYtJKGbOMLfDVEaYNAhWFUjIHLgGZ KbQDEuAJMdNLUbWJSxWQAaHJSpSSGcZLSpWMFpNLNjUSAuZMZnYZRbRZZoJE0LJE24pBIwr6Y8EKLvZR 0ndyc/Qe2FRYdiexXkxFJoNQ5TLkZpBI9ntg0HZsZe HN4fon5ENSlAVpIzR8D7fOTyYVKyHOQCChRqQ56iIMudVj20WIorKWXxTsWoOMx7Ej3HHjDoV0xjTJUp TdT4ZMNoEcBbYPkiZT3Hx0KyiULiUAg+Ge5HFV8ij7DdRKrtPmDhWY7adp2GOTxGLoIhO4OdaoF4JCYc LBScMc3EZYIoWISvdFTcYpYqSREQYnCfD4ZcjR13DF ENCj4+KVfxclSlWbeUIyQaALGjw8CtKSz7HP5SMZQpEXc9wAFlFXVoJNQkCBepFU0hlEDcUBD2WGSyxB EvQKVzciB3yL28zZNyTUCSGRJ6XMuoNb4yGYZlXDAqObQtWZUWNU6ZCTAjQOEqwXPeNRUpAACSGG7CTY zhCNG2IqhtdcNlfLAaUSseAA6TVDGdwmDjAnHoTCBV DQo+Ml8JUU6mm3GxKAnhVPDbTW9nji1JDZnGDgLhW1I6nOFuU2C9TXtsPw9ENEOsBAWtHtDqPJXIMMev RX7IXW7gilN5EH0UrLUeSEXyDGZkfCWgWYe7C01biZTgARnmUD0RQZQ+Dillon+Mt9CEZMgGOKcKIOdTaHu UKWGLcEjI8PrJ7IEx6VpH9SbES56lTndbnXiMMhmTK 4RZP6hSAEjDNQRAR7CoGLzwP3elwXsPfJrVZBOYhShO02vgTWhTCFvKFHgCBNsGt8VFMTsP7WxzwJvbT rcdaIeNXDcBOGGPZ5IMKcuibFljCStiWavTY05oZlsUW2CJu9FHkPtFV8cwn4LfJCnIx1RYKLsPO4TEW PmTIBrTNVqRBP9KKCvCjKnHMvwYQPtMYUyWZD4ZJMb DKRtCY4XFkGvCFWrQOa1YkxxLCLpVSJqxd8NLTBlFCXvZBJfONWvNBAbHKEyVAhmHEIoWGOgCOW1FJSj XLNnXQ8HSuJnONDvKXCqGOnlOSAtFOBlsq5XTCHyEUOiNLDjOcFsCUNxHFNgIUnpYJXwJYTgGUYsZSSb PKCgAY7ARfQmAPYxYEY3BvOxQQQiNLYwln8XXRHvBI NqLrg6GeJzHFJfGVLeXLeuFPCzNBYeSBK9DYOkWTDuMA0IYuTyYMPiQKUqPATvYLJzHYThzm6GMJAhPC DnZKP4TLZrANXkLSVjBOkyDAGiJBU2SfY6BVGiBAPyXS8LEgHyTZVtBXU7JBTmVLWcHSQocy2GPBBqPD UlFbT2ONFuOIJoDSHtGTkmIFQtVKB3Bmv5KJVqTSIx TZ4MBlVdKOLyESx6FBUoKCVeOUKyjz0NAHWfSQWzAAF1AdVoMVNrXZEbMUkuKOGhHOY6NgcdIVFhNUXv SQ1OBnPjVICdXRh0IZIkNJPeBVFhrq8UDCWrISRyZRU9YJJtDPPzTAReYVpnMUGpCWArMia7CRRsIXVl FF1LQeRfMOYgGcT0LtOpYKZaOSBxnq0CIFZqTCJoVR lpKNOlAAGuNFOyLDt6fqPdnPGoIPw5RK7YH6DammGbJmSRIm4Cr159DPY4VWNkLq5GM4xxWx3aETNbOH HJCn4VMFm8YmzmOYLrTYAdZzDuLDSxL6S9AiJ1KOU7XQWfRNL2YlR+QPo2LFR8NoNgUJZyVrKwXNZpOH zkQVf1QsptDLDcDPI2Og7iXTCDTl1+CYinxRApeSdxFMBXCdBcZKW9MUjuXECGTx5R ID Date Data Source [id number] 03/11/2021 08:16:00 PM EDT [facility] Name Value Range Interpretation Code Description Data Stephanie rce(s) Supporting Document(s) SARS coronavirus 2 RNA [Presence] in Res piratory specimen by CORDELL with probe detection NEGATIVE [facility] This lab was ordered by [facility] a nd reported by [facility]. ID Date Data Source [id number] 03/05/2021 09:30:00 PM EDT [facility] Name Value Range Interpretation Code Description Data Stephanie rce(s) Supporting Document(s) Respiratory specimen severe acute respir atory syndrome coronavirus 2 (SARS-CoV-2) RNA Negative (qualifier value) [facility] by . ID Date Data Source [id number] 03/05/2021 10:26:00 PM EDT [facility] First test? [facility]NOW[facility]mployed in [facility] re? UNKNOWNSymptomatic per CDC? UNKNOWNIf yes date of onset? 03/05/21Hospitalized? UNKNOWNICU? UNKNOWNResident in congregated care? ex care home, [facility] YES? UNKNOWN Name Value Range Interpretation Code Description Data Stephanie rce(s) Supporting Document(s) SARS-CoV-2 RNA Negative Normal (applies to non-numeric r esults) [facility] Negative results should be treated as [...] Certificate of Accreditation. Factsheets for healthcare providers: https://www.fda.gov/media/408278/download Factsheets for patients: https://www.fda.gov/media/691427/download The ID NOW Instrument is a rapid molecular in vitro diagnostic test utilizing an isothermal nucleic acid amplification technology intended for the qualitative detection of nucleic acid from the SARS-CoV-2 viral RNA. THIS IS A STATE REPORTABLE COMMUNICABLE DISEASE. Manual entry verified by Aysha Andrade 03/05/215 ID Date Data Source [id number] 03/05/2021 10:15:00 PM EDT [facility] Name Value Range Interpretation Code Description Data Stephanie rce(s) Supporting Document(s) Troponin I 0.000-0.056 Normal (applies to non-numeric resu lts) [facility] ID Date Data Source [id number] 03/05/2021 10:15:00 PM EDT [facility] Name Value Range Interpretation Code Description Data Stephanie rce(s) Supporting Document(s) Acetaminophen 10.0-30.0 Below low normal [facility] ID Date Data Source [id number] 03/05/2021 10:15:00 PM EDT [facility] Name Value Range Interpretation Code Description Data Stephanie rce(s) Supporting Document(s) Magnesium 1.8-2.4 Normal (applies to non-numeric resul ts) [facility] ID Date Data Source [id number] 03/05/2021 10:15:00 PM EDT [facility] Name Value Range Interpretation Code Description Data Stephanie rce(s) Supporting Document(s) Sodium 142 mmol/L 136-145 Normal (applies to non-numeric resul ts) [facility] Potassium 3.5-5.1 Normal (applies to non-numeric resul ts) [facility] Chloride 107 mmol/L 98-107 Normal (applies to non-numeric resul ts) [facility] Carbon Dioxide CO2 21-32 Normal (applies to non-numer ic results) [facility] Anion Gap 5.0-16.0 Normal (applies to non-numeric resul ts) [facility] BUN 17 mg/dL 7-18 Normal (applies to non-numeric results) [facility] Creatinine,Serum 0.7-1.2 Normal (applies to non-numeric results) [facility] GFR >60 Normal (applies to non-numeric results) [facility] Glucose Level 93 mg/dL 60-99 Normal (applies to non-numeric re sults) [facility] Reference range is only applicable when patient is fasting Note the following drug interference: Sulfasalazine Sulfapyridine Can see falsely depressed Can see falsely elevated result with up to 17% results with up to 11% decrease in measurement increase in measurement Recommend patients be collected for this test prior to administration of either drug. Calcium 8.5-10.1 Normal (applies to non-numeric resul ts) [facility] Bilirubin,Total 0.1-1.9 Normal (applies to non-numeric results) [facility] SGOT(AST) 21 U/L 15-37 Normal (applies to non-numeric resul ts) [facility] Note the following drug interference: Sulfasalazine Sulfapyridine Can see falsely depressed Can see falsely elevated result with up to 10% results with up to 10% decrease in measurement increase in measurement Recommend patients be collected for this test prior to administration of either drug. SGPT(ALT) 43 U/L 12-78 Normal (applies to non-numeric resul ts) [facility] Note the following drug interference: Sulfasalazine Sulfapyridine Can see falsely depressed Can see falsely elevated result with up to 29% results with up to 10% decrease in measurement increase in measurement Recommend patients be collected for this test prior to administration of either drug. Alkaline Phosphatase 113 U/L 38-126 Normal (applies to non-num deena results) [facility] can increase Alkaline Phosp le vels up to 2 times the normal adult value. Normal values for children and adolescents are 2 to 3 times the normal adult value. Total Protein 6.0-8.2 Normal (applies to non-numeric re sults) [facility] Albumin Level 3.4-5.0 Normal (applies to non-numeric re sults) [facility] ID Date Data Source [id number] 03/05/2021 10:15:00 PM EDT [facility] Name Value Range Interpretation Code Description Data Stephanie rce(s) Supporting Document(s) Salicylate 2.8-20.0 Below low normal [facility]ital ID Date Data Source [id number] 03/05/2021 10:14:00 PM EDT [facility] Name Value Range Interpretation Code Description Data Stephanie rce(s) Supporting Document(s) Ethanol Less than 10.0 Normal (applies to non-numeric r esults) [facility] ID Date Data Source [id number] 03/05/2021 09:36:00 PM EDT [facility] Name Value Range Interpretation Code Description Data Stephanie rce(s) Supporting Document(s) White Blood Count 3.5-10.5 Above high normal [facility] Red Blood Count 3.90-5.00 Normal (applies to non-numeric results) [facility] Hemoglobin 12.0-15.5 Normal (applies to non-numeric resul ts) [facility] Hematocrit 34.9-44.5 Normal (applies to non-numeric resul ts) [facility] Mean Corpuscular Volume 81.2-95.1 Normal (applies to non- numeric results) [facility] Mean Corpuscular Hgb 25.6-32.2 Normal (applies to non-num deena results) [facility] Mean Corpuscular Hgb Conc 32.0-36.0 Normal (applies to no n-numeric results) [facility] Red Cell Distribution Width 11.9-15.5 Normal (appli es to non-numeric results) [facility] Platelet Count 258 x10 3/uL 150-450 Normal (applies to non-numeric results) [facility] Mean Platelet Volume 9.4-12.4 Normal (applies to non-num deena results) [facility] Neutrophils% (Auto) 31.0-71.0 Normal (applies to non-nume frank results) [facility] Lymphocytes% (Auto) 20.0-55.0 Normal (applies to non-nume frank results) [facility] Monocytes% (Auto) 4.0-12.0 Normal (applies to non-numeri c results) [facility] Eosinophils% (Auto) 1.0-8.0 Below low normal [facility] Basophils% (Auto) 0.0-2.0 Normal (applies to non-numeri c results) [facility] Immature Granulocytes% (Auto) 0.0-2.0 Normal (alexander lies to non-numeric results) [facility] Neutrophils# (Auto) 1.50-6.20 Above high normal [facility] Lymphocytes# (Auto) 1.20-4.00 Normal (applies to non-nume frank results) [facility] Monocytes# (Auto) 0.00-0.90 Normal (applies to non-numeri c results) [facility] Eosinophils# (Auto) 0.00-0.50 Normal (applies to non-nume frank results) [facility] Basophils# (Auto) 0.00-0.20 Normal (applies to non-numeri c results) [facility] Immature Granulocytes# (Auto) 0.00-7.00 No rmal (applies to non-numeric results) [facility] ID Date Data Source [id number] 03/05/2021 10:00:00 PM [facility] Collected By: Nurse Initials: ayleen wyatt Collected: 1999 Collected By: Nurse Initials: ayleen wyatt Collected: 1999 Collected By: Nurse Initials: ayleen wyatt Collected: 1999 Name Value Range Interpretation Code Description Data [facility] rce(s) Supporting Document(s) RBC,Urine None Seen [facility] WBC,Urine None Seen [facility] Squamous Cells,Urine None Seen [facility] Amorphous Sediment,Urine None Seen [facility] Bacteria,Urine None Seen [facility] ital ID Date Data Source [id number] 03/05/2021 10:00:00 PM [facility] Collected By: Nurse Initials: ayleen wyatt Collected: 1999 Collected By: Nurse Initials: ayleen wyatt Collected: 1999 Collected By: Nurse Initials: ayleen wyatt Collected: 1999 Name Value Range Interpretation Code Description Data Stephanie rce(s) Supporting Document(s) Color,Urine Colorl-Dk Y Normal (applies to non-numeric res ults) [facility] Clarity,Urine Clear Normal (applies to non-numeric re sults) [facility] Specific [place],Urine 1.005-1.030 [facility] pH,Urine 5.0-8.0 Normal (applies to non-numeric resul ts) [facility] Protein,Urine Negative [facility] Glucose,Urine Negative Normal (applies to non-numeric re sults) [facility] Ketones,Urine Negative Normal (applies to non-numeric re sults) [facility] Blood,Urine Negative Normal (applies to non-numeric resu lts) [facility] Bilirubin,Urine Negative Normal (applies to non-numeric results) [facility] Urobilinogen,Urine 0.2-1.0 Normal (applies to non-numer ic results) [facility] Leukocyte Esterase,Urine Negative Normal (applies to non -numeric results) [facility] Nitrite,Urine Negative Normal (applies to non-numeric re sults) [facility] ID Date Data Source [id number] 03/05/2021 10:00:00 PM EDT [facility] Collected By: Nurse Initials: ayleen wyatt Collected: 1999 Collected By: Nurse Initials: ayleen wyatt Collected: 1999 Collected By: Nurse Initials: ayleen wyatt Collected: 1999 Name Value Range Interpretation Code Description Data Stephanie rce(s) Supporting Document(s) HCG,Ur Negative Normal (applies to non-numeric results) [facility] ID Date Data Source [id number] 03/05/2021 08:25:00 PM EDT [facility] Name Value Range Interpretation Code Description Data Stephanie rce(s) Supporting Document(s) UDS Benzodiazepines Screen Negative Normal (applies to n on-numeric results) [facility] UDS Cocaine Screen Negative Normal (applies to non-numer ic results) [facility] UDS Ampetamine Screen Negative Normal (applies to non-nu meric results) [facility] UDS Cannabinoids Screen Negative Normal (applies to non- numeric results) [facility] UDS Opiates Screen Negative Normal (applies to non-numer ic results) [facility] UDS Barbiturates Screen Negative Normal (applies to non- numeric results) [facility] Threshold Levels Benzodiazepine 200 ng/mL Cocaine 300 ng/mL Amphetamines 1000 ng/mL Cannabinoids (THC) 50 ng/mL Opiates 300 ng/mL Barbiturates 200 ng/mL All positive findings are presumptive and unconfirmed. Confirmation of positive results are performed only at request of provider. Unconfirmed results must not be used for non-medical purposes (i.e. preemployment and legal purposes) ID Date Data Source [id number] 03/04/2021 03:33:00 PM EDT [facility] Exam Number: [id number] Reported By: - JEREMIAH PEOPLES MD Signed By: JEREMIAH PEOPLES MD Name Value Range Interpretation Code Description Data Stephanie rce(s) Supporting Document(s) ID Date Data Source [id number] 03/03/2021 08:53:00 PM EDT [facility] Name Value Range Interpretation Code Description Data Stephanie rce(s) Supporting Document(s) [id number]-[id number]-result [employer] XPERT XPRESS SARS-CO V-2 REALTIME PCR ASSAY HAS EMERGENCY USE AUTHORIZATION (EUA) FROM THE FDA. [facility] This lab was ordered by [facility] and reported by [facility]. ID Date Data Source [id number] 03/03/2021 02:50:00 AM EDT [facility] Name Value Range Interpretation Code Description Data Stephanie rce(s) Supporting Document(s) Respiratory specimen severe acute respir atory syndrome coronavirus 2 (SARS-CoV-2) RNA Negative (qualifier value) [facility] This lab was ordered by [facility] and reported by . ID Date Data Source [id number] 03/03/2021 03:11:00 AM EDT [facility] First test? [facility]? UNKNOWNSymptomatic per CDC? UNKNOWNHospitalized? UNKNOWNICU? UNKNOWNResident in congregated care? ex care home, [facility] UNKNOWN? UNKNOWN Name Value Range Interpretation Code Description Data Stephanie rce(s) Supporting Document(s) SARS-CoV-2 RNA Negative Normal (applies to non-numeric r esults) [facility] Negative results should be treated as [...] Certificate of Accreditation. Factsheets for healthcare providers: https://www.fda.gov/media/666285/download Factsheets for patients: https://www.fda.gov/media/149286/download The ID NOW Instrument is a rapid molecular in vitro diagnostic test utilizing an isothermal nucleic acid amplification technology intended for the qualitative detection of nucleic acid from the SARS-CoV-2 viral RNA. THIS IS A STATE REPORTABLE COMMUNICABLE DISEASE. Manual entry verified by Marion Thompson 03/03/21310 ID Date Data Source [id number] 03/03/2021 02:26:00 AM EDT [facility] Name Value Range Interpretation Code Description Data Stephanie rce(s) Supporting Document(s) UDS Benzodiazepines Screen Negative Normal (applies to n on-numeric results) [facility] UDS Cocaine Screen Negative Normal (applies to non-numer ic results) [facility] UDS Ampetamine Screen Negative Normal (applies to non-nu meric results) [facility] UDS Cannabinoids Screen Negative Normal (applies to non- numeric results) [facility] UDS Opiates Screen Negative Normal (applies to non-numer ic results) [facility] UDS Barbiturates Screen Negative Normal (applies to non- numeric results) [facility] Threshold Levels Benzodiazepine 200 ng/mL Cocaine 300 ng/mL Amphetamines 1000 ng/mL Cannabinoids (THC) 50 ng/mL Opiates 300 ng/mL Barbiturates 200 ng/mL All positive findings are presumptive and unconfirmed. Confirmation of positive results are performed only at request of provider. Unconfirmed results must not be used for non-medical purposes (i.e. preemployment and legal purposes) ID Date Data Source [id number] 03/03/2021 02:21:00 AM EDT [facility] Collected By: Nurse Initials: [place] Time Collected: 157 Collected By: Nurse Initials: [place] Time Collected: 157 Name Value Range Interpretation Code Description Data Stephanie rce(s) Supporting Document(s) Color,Urine Colorl-Dk Y Normal (applies to non-numeric res ults) [facility] Clarity,Urine Clear Normal (applies to non-numeric re sults) [facility] Specific [place],Urine 1.005-1.030 [facility] pH,Urine 5.0-8.0 Normal (applies to non-numeric resul ts) [facility] Protein,Urine Negative Normal (applies to non-numeric re sults) [facility] Glucose,Urine Negative Normal (applies to non-numeric re sults) [facility] Ketones,Urine Negative Normal (applies to non-numeric re sults) [facility] Blood,Urine Negative Normal (applies to non-numeric resu lts) [facility] Bilirubin,Urine Negative Normal (applies to non-numeric results) [facility] Urobilinogen,Urine 0.2-1.0 Normal (applies to non-numer ic results) [facility] Leukocyte Esterase,Urine Negative Normal (applies to non -numeric results) [facility] Nitrite,Urine Negative Normal (applies to non-numeric re sults) [facility] ID Date Data Source [id number] 03/03/2021 02:21:00 AM EDT [facility] Collected By: Nurse Initials: [place] Time Collected: 157 Collected By: Nurse Initials: [place] Time Collected: 157 Name Value Range Interpretation Code Description Data Stephanie rce(s) Supporting Document(s) HCG,Ur Negative Normal (applies to non-numeric results) [facility] ID Date Data Source [id number] 03/03/2021 02:54:00 AM EDT [facility] Name Value Range Interpretation Code Description Data Stephanie rce(s) Supporting Document(s) D-Dimer,Quant 0.19-0.50 Normal (applies to non-numeric re sults) [facility] The negative predictive value for DVT [...] on anticoagulant therapy. ID Date Data Source [id number] 03/03/2021 01:55:00 AM [facility] Name Value Range Interpretation Code Description Data Stephanie rce(s) Supporting Document(s) Ethanol Less than 10.0 Normal (applies to non-numeric r esults) [facility] ID Date Data Source [id number] [facility] Value [facility] Interpretation Code Description Data Stephanie rce(s) Supporting Document(s) Acetaminophen 10.0-30.0 Below low normal [facility] ID Date Data Source [id number] 03/03/2021 01:55:00 AM [facility] Name Value Range Interpretation Code Description Data Stephanie rce(s) Supporting Document(s) Sodium 143 mmol/L 136-145 Normal (applies to non-numeric resul ts) [facility] Potassium 3.5-5.1 Normal (applies to non-numeric resul ts) [facility] Chloride 107 mmol/L 98-107 Normal (applies to non-numeric resul ts) [facility] Carbon Dioxide CO2 21-32 Normal (applies to non-numer ic results) [facility] Anion Gap 5.0-16.0 Normal (applies to non-numeric resul ts) [facility] BUN 20 mg/dL 7-18 Above high normal [facility] Creatinine,Serum 0.7-1.2 Normal (applies to non-numeric results) [facility] GFR >60 Normal (applies to non-numeric results) [facility] Glucose Level 101 mg/dL 60-99 Above high normal [facility] Reference range is only applicable when patient is fasting Note the following drug interference: Sulfasalazine Sulfapyridine Can see falsely depressed Can see falsely elevated result with up to 17% results with up to 11% decrease in measurement increase in measurement Recommend patients be collected for this test prior to administration of either drug. Calcium 8.5-10.1 Normal (applies to non-numeric resul ts) [facility] Bilirubin,Total 0.1-1.9 Normal (applies to non-numeric results) [facility] SGOT(AST) 22 U/L 15-37 Normal (applies to non-numeric resul ts) [facility] Note the following drug interference: Sulfasalazine Sulfapyridine Can see falsely depressed Can see falsely elevated result with up to 10% results with up to 10% decrease in measurement increase in measurement Recommend patients be collected for this test prior to administration of either drug. SGPT(ALT) 44 U/L 12-78 Normal (applies to non-numeric resul ts) [facility] Note the following drug interference: Sulfasalazine Sulfapyridine Can see falsely depressed Can see falsely elevated result with up to 29% results with up to 10% decrease in measurement increase in measurement Recommend patients be collected for this test prior to administration of either drug. Alkaline Phosphatase 116 U/L 38-126 Normal (applies to non-num deena results) [facility] can increase Alkaline Phosp le vels up to 2 times the normal adult value. Normal values for children and adolescents are 2 to 3 times the normal adult value. Total Protein 6.0-8.2 Normal (applies to non-numeric re sults) [facility] Albumin Level 3.4-5.0 Normal (applies to non-numeric re sults) [facility] ID Date Data Source [id number] 03/03/2021 01:55:00 AM EDT [facility] Name Value Range Interpretation Code Description Data Stephanie rce(s) Supporting Document(s) Salicylate 2.8-20.0 Below low normal [facility] ID Date Data Source [id number] 03/03/2021 01:55:00 AM EDT [facility] Name Value Range Interpretation Code Description Data Stephanie rce(s) Supporting Document(s) Magnesium 1.8-2.4 Normal (applies to non-numeric resul ts) [facility] ID Date Data Source [id number] 03/03/2021 01:55:00 AM EDT [facility] Name Value Range Interpretation Code Description Data Stephanie rce(s) Supporting Document(s) Troponin I 0.000-0.056 Normal (applies to non-numeric resu lts) [facility] ID Date Data Source [id number] 03/03/2021 01:19:00 AM EDT [facility] Name Value Range Interpretation Code Description Data Stephanie rce(s) Supporting Document(s) White Blood Count 3.5-10.5 Above high normal [facility] Red Blood Count 3.90-5.00 Normal (applies to non-numeric results) [facility] Hemoglobin 12.0-15.5 Normal (applies to non-numeric resul ts) [facility] Hematocrit 34.9-44.5 Normal (applies to non-numeric resul ts) [facility] Mean Corpuscular Volume 81.2-95.1 Normal (applies to non- numeric results) [facility] Mean Corpuscular Hgb 25.6-32.2 Normal (applies to non-num deena results) [facility] Mean Corpuscular Hgb Conc 32.0-36.0 Normal (applies to no n-numeric results) [facility] Red Cell Distribution Width 11.9-15.5 Normal (appli es to non-numeric results) [facility] Platelet Count 274 x10 3/uL 150-450 Normal (applies to non-numeric results) [facility] Mean Platelet Volume 9.4-12.4 Below low normal [facility] Neutrophils% (Auto) 31.0-71.0 Normal (applies to non-nume frank results) [facility] Lymphocytes% (Auto) 20.0-55.0 Normal (applies to non-nume frank results) [facility] Monocytes% (Auto) 4.0-12.0 Normal (applies to non-numeri c results) [facility] Eosinophils% (Auto) 1.0-8.0 Below low normal [facility] Basophils% (Auto) 0.0-2.0 Normal (applies to non-numeri c results) [facility] Immature Granulocytes% (Auto) 0.0-2.0 Normal (alexander lies to non-numeric results) [facility] Neutrophils# (Auto) 1.50-6.20 Above high normal [facility] Lymphocytes# (Auto) 1.20-4.00 Normal (applies to non-nume frank results) [facility] Monocytes# (Auto) 0.00-0.90 Normal (applies to non-numeri c results) [facility] Eosinophils# (Auto) 0.00-0.50 Normal (applies to non-nume frank results) [facility] Basophils# (Auto) 0.00-0.20 Normal (applies to non-numeri c results) [facility] Immature Granulocytes# (Auto) 0.00-7.00 No rmal (applies to non-numeric results) [facility] ID Date Data Source [id number] 03/02/2021 11:08:00 AM EDT [address] HEALTH CONSULTPATIENT NAME: YARELI HATCH MR#: [id number] PHYSICIAN:AUTHOR: Colleen SMITH,Bogdan DATE: #: ERPATIENT : 00HistoryHistory of Presenting IllnessPatient is 20-year-old female, currently single, lives at [facility], pastpsych history of borderline personality disorder, depression [...] And she wanted to be discharged backto [facility]. However upon asking how she is going [...] rce(s) Supporting Document(s) ID Date Data Source [id number] 03/02/2021 04:06:00 AM EDT [facility] Name Value Range Interpretation Code Description Data Stephanie rce(s) Supporting Document(s) SALICYLATE < 1.7 mg/dL 0.0-20.0 [facility] ID Date Data Source [id number] 03/02/2021 04:06:00 AM EDT [facility] Name Value Range Interpretation Code Description Data Stephanie rce(s) Supporting Document(s) ACETAMINOPHEN < 2.0 ug/mL 0-30 [facility] ID Date Data Source [id number] 03/02/2021 04:06:00 AM EDT [facility] Name Value Range Interpretation Code Description Data Stephanie rce(s) Supporting Document(s) ETOH NONE DETECTED [facility] NONE DETECTED ID Date Data Source [id number] 03/02/2021 04:06:00 AM EDT [facility] Name Value Range Interpretation Code Description Data Stephanie rce(s) Supporting Document(s) GLU 120 mg/dL 70-110 [facility] Patients taking Sulfasalazine may have f alsely depressedGlucose levels. Patients taking Sulfapyridine may havefalsely elevated Glucose levels. Patients should be drawnfor Glucose before the initial administration of eitherdrug. BUN 16 mg/dL 7-23 [facility] CRE 0.685 mg/dL 0.500-1.300 [facility] GFR > 60 mL/min [facility] CHLORIDE 111 mmol/L 99-110 [facility] NA 141 mmol/L 136-147 [facility] POTASSIUM 3.6 mmol/L 3.5-5.1 [facility] TCO2 18 mmol/L 20-33 [facility] ANION GAP 15.6 10.0-20.0 [facility] CA 8.5 mg/dL 8.3-10.7 [facility] ALKALINE PHOS 118 U/L 45-117 [facility] TP 7.5 g/dL 6.0-7.8 [facility] ALB 3.7 g/dL 3.5-5.0 [facility] ESRD Dialysis patient Albumin reference range: 2.9-4.4 g/dL GL 3.8 g/dL 2.3-3.5 [facility] A/G 1.0 1.0-2.5 [facility] T. BILIRUBIN 0.2 mg/dL 0.1-1.1 [facility] The Dimension [place] Total Bilirubin is n ot recommended forpatients undergoing treatment with eltrombopag (Promacta)due to the potential for falsely elevated results. ALTI 43 U/L 6-54 [facility] Patients taking Sulfasalazine and/or Sul fapyridine may havefalsely depressed ALT levels. Patients should be drawn forALT before the initial administration of either drug. AST 21 U/L 6-38 [facility] Patients taking Sulfasalazine and/or Sul fapyridine may havefalsely depressed AST levels. Patients should be drawn forAST before the initial administration of either drug. ID Date Data Source [id number] 03/02/2021 03:12:00 AM EDT [facility] Name Value Range Interpretation Code Description Data Stephanie rce(s) Supporting Document(s) WBC 9.90 x10E3/uL 4.0-10.5 [facility] RBC 4.15 x10E6/uL 4.20-5.40 [facility] Hemoglobin 12.4 g/dL 12.0-16.0 [facility] Hematocrit 37.0 % 37.0-47.0 [facility] MCV 89.2 fL 81.0-99.0 [facility] MCH 29.9 pg 27.0-31.0 [facility] MCHC 33.5 g/dL 32.7-35.6 [facility] RDW 12.4 % 11.5-14.0 [facility] Platelet count 243 x10E3/uL 150-450 N [facility] ital MPV 9.9 fl 6.9-9.5 [facility] Neutrophils 61.6 % 34-64 [facility] Lymphocytes 29.1 % 25-45 [facility] Monocytes 7.2 % 1.7-10.6 [facility] Eosinophils 1.3 % 0.4-7.0 [facility] Basophils 0.3 % 0.1-2.0 [facility] Imm. Gran. 0.5 % 0.1-2.0 [facility] Abs. Neutro. 6.10 x10E3/uL 1.2-7.6 [facility] Abs. Lymph. 2.88 x10E3/uL 1.0-3.5 [facility] al Abs. Levy. 0.71 x10E3/uL 0.1-1.0 [facility] l Abs. Eosin. 0.13 x10E3/uL 0.1-0.7 [facility] al Abs. Baso. 0.03 x10E3/uL 0.0-0.1 [facility] l Abs. Imm. Gran. 0.05 x10E3/uL 0.0-0.1 [facility] spital ANRBC% 0 % 0 [facility] ID Date Data Source [id number] 03/02/2021 03:28:00 AM EDT [facility] Name Value Range Interpretation Code Description Data Stephanie rce(s) Supporting Document(s) PCP VISTA NEG NEGATIVE [facility] MINIMUM LEVEL OF DETECTION IS 25 ng/ml BENZODIAZEPINES [facility]IMUM LEVEL OF DETECTION IS 200 ng/ml COCAINE VISTA NEG NEGATIVE [facility] MINIMUM LEVEL OF DETECTION IS 300 ng/ml AMPHETAMINES NEG NEGATIVE [facility] al MINIMUM LEVEL OF DETECTION IS 1000 ng/ml BARBITURATES NEG NEGATIVE [facility] CUTOFF CONCENTRATION IS 200 ng/ml CANNABINOIDS NEG NEGATIVE [facility] CUTOFF CONCENTRATION IS 50 ng/ml METHADONE VISTA NEG NEGATIVE [facility] Hospit al MINIMUM LEVEL OF DETECTION IS 300 ng/ml OPIATE VISTA NEG NEGATIVE [facility] MINIMUM DETECTION LEVEL IS 300 ng/ml ID Date Data Source [id number] 03/02/2021 03:15:00 AM EDT [facility] Name Value Range Interpretation Code Description Data Stephanie rce(s) Supporting Document(s) HCG QUAL URINE Negative [facility] ID Date Data Source [id number] 03/02/2021 03:15:00 AM EDT [facility] Name Value Range Interpretation Code Description Data Stephanie rce(s) Supporting Document(s) URINE COLOR Yellow [facility] UAPR Cloudy [facility] UGLU Negative NEGATIVE [facility] URINE BILIRUBIN Negative NEGATIVE [facility] al UKET Trace NEGATIVE [facility] USG 1.028 1.010-1.025 [facility] UBLO Negative NEGATIVE [facility] UpH 5.0 5.0-8.0 [facility] UPRO Negative Negative [facility] UUB 1.0 mg/dL 0.2-1.0 [facility] UNIT Negative Negative [facility] ULEU Negative Negative [facility] ID Date Data Source [id number] 03/02/2021 11:27:00 AM EDT [facility] Physician DocumentationClaxlexy-Cristina Hinkle edical CenterName: Yareli DuvallAge: 20 yrsSex: FemaleDOB: 2000MRN: [id number] Date: 03/02/2021Time: 02:30Account#: [id number] MD: NONE, - Per PatientED Physician Nils ArguetaDiszach Summary:03/02/21 11:12Discharge OrderedLocation: Home Self Care afProblem: an ongoing problem afSymptoms: are unchanged afCondition: Stable afDiagnosis- Adjustment disorder, unspecified afFollowup: af- With: Private Physician- When: 1 week- Reason: Recheck today's complaintsDischarge Instructions:- ADJUSTMENT DISORDER af- Discharge Summary Sheet [id number]:- Medication Reconciliation af- Medication Reconciliation Form - 2nd Copy afHPI:02/2202:50 This 20 yrs old White Female presents to ER via Police with yn0hpvyrovmwl of Psych Problem.02:50 Associated signs and symptoms: Pertinent negatives: abdominal pain, lx5ynmvu pain, fever, headache, nausea, shortness of breath, [...] denies any other problems or any other complaints..IT ARCHITECT:02:35 LMP N/A - Irregular menses fg1Gaydwqllni:- Allergies: Haldol; Risperdal;- Home Meds:1. ibuprofen 400 [...] Temp 97.7; Pulse Ox 96% ; Weight cn8223.33 kg; Height 5 ft. 7 in. (170.18 cm);11:27 BP 124 / 76; Pulse 88; Resp 20; Temp 98; Pulse Ox 98% on R/A; fbg02:35 Body Mass Index 36.02 (104.33 kg, 170.18 cm) jw5MDM:02:40 Patient medically screened. th406:41 Data reviewed: vital signs, nurses notes, lab test result(s). ED fk3ksxmus: Patient remained stable in the ER. Patient here for mentalhealth evaluation as above. Case is endorsed to Dr. Rica oliver of shift pending PSA evaluation and disposition. Patient ismedically clear and has been cooperative..02/2202:38 Order name: Acetaminophen Level; Complete Time: : Order name: CBC with diff; Complete Time: : Order name: CMP; Complete Time: : Order name: ETOH; Complete Time: : Order name: Glucose :38 Order name: Salicylate Level; Complete Time: : Order name: Triage - Drug Screen; Complete Time: : Order name: UA; Complete Time: : Order name: Urine HCG Qualitative; Complete Time: :38 Order name: Diet - Mental Health Tray (call dietary); Complete Time: jw504:49002/2202:38 Order name: Belongings List :38 Order name: Document Weight and Height for BMI; Complete Time: 04:50 :38 Order name: Mental Health Evaluation : Order name: Mental Health Level 3; Complete Time: 04:50 : Order name: VS q shift; Complete Time: 04:50 :28 Order name: Medically Cleared for Eval by-Psychosocial, Sub Prior th4(.PSA); Complete Time: 07:27Dispensed Medications:No medications were administeredSignatures:Dispatcher [employer] Anshul Loving MD MD afHowland, Todd, MD MD sk1EzirqFortunato humphrey RN RN vn5SlinhRatna mccallum RN RN kk3 Name Value Range Interpretation Code Description Data Stephanie rce(s) Supporting Document(s) ID Date Data Source [id number] 03/02/2021 11:27:00 AM EDT [facility] Nurse's NotesClaxMaria [facility] terName: Yareli AdamelAge: 20 yrsSex: FemaleDOB: 2000MRN: [id number] Date: 03/02/2021Time: 02:30Account#: [id number] 5APrivate MD: NONE, - Per PatientDiagnosis: Adjustment disorder, unspecifiedPresentation:02/2202:32 Presenting complaint: Patient brought in by [employer] officer Noel Huerta for [address] evaluation for suicidal thoughts. International TravelFever No. Coronavirus Screening: Have you been diagnosed withCOVID-19 in the past 30 days? no [facility] no Flu-like symptoms reported in the last 14 days: no.Have you had close contact with confirmed or suspected COVID-19 case?no Do you live in a setting where a large of amount of people live,such as care home, family care, fci, etc? no. Have you traveledto a location with widespread or ongoing COVID-19 community spread [facility]? no Have you traveled internationally or hadcontact with someone that has traveled and has been ill in the past 3weeks? no Have you received the COVID vaccine? Yes. CommunicableDisease Screen: Negative for fever>/= 100 degrees Fahrenheit.Communicable disease screen is negative. (-) rash or unusual skinlesion (-) travel/contact with traveler (-) respiratory symptoms.Communication Speaks Indian? Yes, is preferred language.02:32 Acuity: Triage 2 jw502:32 Method Of Arrival: Police jw502:34 Acuity Assignment: Triage 2 us4Haznsf Assessment:02:34 Sepsis Screening: (1)Signs/symptoms infection Sepsis is not rr5ehvglmyqr. Pain: Denies pain. PSS-3 Now I'm going [...] noted. : No deficits noted. Musculoskeletal: Nodeficits noted.IT ARCHITECT:02:35 LMP N/A - Irregular menses qr5Oftnfqthho:- Allergies: Haldol; Risperdal;- Home Meds:1. ibuprofen 400 [...] threats or abuse. Denies injuries from another. gp2Afrrwmvftrg screening: No deficits noted. Offer of HIV [...] in no apparent distress at this time. xo8Jaehufx is asleep.06:12 Reassessment: Patient appears in no apparent distress at this time. wo3Nkyjsfvhganc:10:54 SAFE Act Report Not Completed. Intervention: Observation Level 3. [address] health consult is initiated at 10:10. Referral Information:Evaluation referral is generated by the patient himself / herself.The patient was referred for evaluation because Suicidal Ideation.10:57 Subjective: The patients chief complaint is SI. Patient is a 20 y/o ka9zovxy female who was discharged from the inpatient [...] / Agency: [facility] Walk-In appointment in [place] on Wednesday.. LivingEnvironment:. Patient presents to Emergency [...] of patients status at 11:05, Mental Health LEARNING AND DEVELOPMENT MANAGER made awareof pt status at 11:05. Disposition: The patient has a safedestination which is Patient is being discharged back to [facility]. DSM-V DX [place] I diagnosis: Adjustment D/O w mixedemotion, conduct. The patient is not a dining service worker or militarydependent. [place] Suicide Severity Rating Scale: Suicidal IdeationRating 0; Intensity of Ideations Rating 0; Suicidal Behavior Rating 0.Psych:02:37 Subjective: Patient's mood is sad, Delusions are denied, yq5Wmhvdjvpejaimk are denied Having thoughts of suicide. Denies [...] Temp 97.7; Pulse Ox 96% ; Weight kt4323.33 kg; Height 5 ft. 7 in. (170.18 [...] armband on for positive identification. Placed in qi4jdqe. Bed in low position. Side rails up X 1. Sitter at bedside.Verbal reassurance given. Pillow given. Head of bed elevated.02:55 Labs drawn. Collected by lab. kk303:45 No apparent distress. Resting quietly. kk303:45 Sitter at bedside. kk303:56 Ratna Barbosa, JOSE LUIS is Primary Nurse. kk304:49 No apparent distress. Appears to be sleeping. kk304:49 Sitter at bedside. kk305:47 No apparent distress. Appears to be sleeping. kk305:47 Sitter at bedside. kk307:20 Report given to Vincenzo Luis RN. kk307:25 Primary Nurse role handed off by Ratna Barbosa, JOSE LUIS kk307:45 Diet: Patient given regular meal. fbg09:36 Appears to be sleeping. fbg10:33 Appears angry. Awaiting disposition. fbg11:27 No Physician assisted procedures completed. fbgAdministered Medications:No medications were administeredOutcome:11:12 Discharge ordered by . af11:27 Disposition: Discharged to home ambulatory. fbg11:27 Condition: urfjnfdvm95:27 Discharge instructions given to patient, Instructed on dischargeinstructions, follow up and referral plans. medication usage.11:27 Discharge Assessment: Patient awake, alert and oriented x 3. Nocognitive and/or functional deficits noted. Patient verbalizedunderstanding of disposition instructions. Patient verbalizedunderstanding of disposition instructions. Patient has no functionaldeficits.11:27 Patient left the ED. fbgSignatures:Vincenzo Luis RN RN fbgFedoroAnshul casillas MD MD afStickles, Robert, PSA PSA eo2KnkybqzNils Argueta MD MD qa3XqnljFortunato humphrey RN RN we9UzywzRatna mccallum, JOSE LUIS RN od8Dfvyuzzvsfi: (The following items were deleted from the chart)11:06 10:54 Referral Information: Evaluation referral is generated by the xv7jlqmufg himself / herself. rs2 Name Value Range Interpretation Code Description Data Stephanie rce(s) Supporting Document(s) ID Date Data Source [id number] 03/01/2021 11:36:00 AM EDT [address] HEALTH CONSULTPATIENT NAME: YARELI HATCH MR#: [id number] PHYSICIAN:AUTHOR: Kary Gray NP DATE: RM#: ERPATIENT : 00HistoryHistory of Presenting IllnessPatient is 20-year-old female, currently lives at [facility], past psychhistory of mood disorder, borderline personality [...] stated that she has a friend from [place] that she talksand that friend treats her really well at this point. She [place] go [place], stating that she wants to enjoy beautiful [...] help for coming back into the hospital. [place] not have any further criteria for inpatient hospitalization and we aredischarging the patient at this point. Continue current psychotropicmedication as well as recommended to follow-up with her outpatient providers.Past Psych/Medical HistoryAllergiesCoded Allergies:haloperidol (From HALDOL) (06/15/20)risperidone (08/04/19)DATE SIGNED: 03/01/21 Electronically SignedTIME SIGNED: [id number] KARY GRAY Name Value Range Interpretation Code Description Data Stephanie rce(s) Supporting Document(s) ID Date Data Source [id number] 03/01/2021 08:18:00 AM EDT [facility] Name Value Range Interpretation Code Description Data Stephanie rce(s) Supporting Document(s) LCOVID-19, CORDELL NEGATIVE [facility] This lab was ordered by [facility] and reported by [facility]. ID Date Data Source [id number] 03/01/2021 08:55:00 AM EDT [facility] Name Value Range Interpretation Code Description Data Stephanie rce(s) Supporting Document(s) COVID-19, CORDELL NEGATIVE NEGATIVE [facility] Methodology: Isothermal Nucleic Acid Amp lification for [...] Emergency Use Authorization. ID Date Data Source [id number] 02/28/2021 10:15:00 PM EDT [facility] Name Value Range Interpretation Code Description Data Stephanie rce(s) Supporting Document(s) PCP VISTA NEG NEGATIVE [facility] MINIMUM LEVEL OF DETECTION IS 25 ng/ml BENZODIAZEPINES [facility] MINIMUM LEVEL OF DETECTION IS 200 ng/ml COCAINE VISTA NEG NEGATIVE [facility] MINIMUM LEVEL OF DETECTION IS 300 ng/ml AMPHETAMINES NEG NEGATIVE [facility] MINIMUM LEVEL OF DETECTION IS 1000 ng/ml BARBITURATES NEG NEGATIVE [facility] CUTOFF CONCENTRATION IS 200 ng/ml CANNABINOIDS NEG NEGATIVE [facility] CUTOFF CONCENTRATION IS 50 ng/ml METHADONE VISTA NEG NEGATIVE [facility] al MINIMUM LEVEL OF DETECTION IS 300 ng/ml OPIATE VISTA NEG NEGATIVE [facility] MINIMUM DETECTION LEVEL IS 300 ng/ml ID Date Data Source [id number] 02/28/2021 09:59:00 PM EDT [facility] Name Value Range Interpretation Code Description Data Stephanie rce(s) Supporting Document(s) URINE COLOR Yellow [facility] UAPR Clear [facility] UGLU Negative NEGATIVE [facility] URINE BILIRUBIN Negative [facility]GATIVE [facility] UKET Trace NEGATIVE [facility] USG 1.028 1.010-1.025 [facility] UBLO Negative NEGATIVE [facility] UpH 6.0 5.0-8.0 [facility] UPRO Negative Negative [facility] UUB 1.0 mg/dL 0.2-1.0 [facility] UNIT Negative Negative [facility] ULEU Negative Negative [facility] ID Date Data Source [id number] 02/28/2021 09:59:00 PM EDT [facility] Name Value Range Interpretation Code Description Data Stephanie rce(s) Supporting Document(s) HCG QUAL [facility]INE Negative [facility] ID Date Data Source [id number] 02/28/2021 10:15:00 PM EDT [facility] Name Value Range Interpretation Code Description Data Stephanie rce(s) Supporting Document(s) SALICYLATE < 1.7 mg/dL 0.0-20.0 [facility] ID Date Data Source [id number] 02/28/2021 10:15:00 PM EDT [facility] Name Value Range Interpretation Code Description Data Stephanie rce(s) Supporting Document(s) ACETAMINOPHEN < 2.0 ug/mL 0-30 [facility] Date Data Source [id number] 02/28/2021 10:15:00 PM EDT [facility] Name Value Range Interpretation Code Description Data Stephanie rce(s) Supporting Document(s) ETOH NONE DETECTED [facility] NONE DETECTED ID Date Data Source [id number] 02/28/2021 10:15:00 PM EDT [facility] Name Value Range Interpretation Code Description Data Stephanie rce(s) Supporting Document(s) GLU 98 mg/dL 70-110 [facility] Patients taking Sulfasalazine may have f alsely depressedGlucose levels. Patients taking Sulfapyridine may havefalsely elevated Glucose levels. Patients should be drawnfor Glucose before the initial administration of eitherdrug. BUN 14 mg/dL 7-23 [facility] CRE 0.645 mg/dL 0.500-1.300 [facility] GFR > 60 mL/min [facility] CHLORIDE 109 mmol/L 99-110 [facility] NA 140 mmol/L 136-147 [facility] POTASSIUM 3.6 mmol/L 3.5-5.1 [facility] TCO2 22 mmol/L 20-33 [facility] ANION GAP 12.6 10.0-20.0 [facility] CA 8.6 mg/dL 8.3-10.7 [facility] ALKALINE PHOS 114 U/L 45-117 [facility] TP 7.3 g/dL 6.0-7.8 [facility] ALB 3.6 g/dL 3.5-5.0 [facility] ESRD Dialysis patient Albumin reference range: 2.9-4.4 g/dL GL 3.7 g/dL 2.3-3.5 [facility] A/G 1.0 1.0-2.5 [facility] T. BILIRUBIN 0.3 mg/dL 0.1-1.1 [facility] The [employer]ension [employer] Total Bilirubin is n ot recommended forpatients undergoing treatment with eltrombopag (Promacta)due to the potential for falsely elevated results. ALTI 44 U/L 6-54 [facility] Patients taking Sulfasalazine and/or Sul fapyridine may havefalsely depressed ALT levels. Patients should be drawn forALT before the initial administration of either drug. AST 18 U/L 6-38 [facility] Patients taking Sulfasalazine and/or Sul fapyridine may havefalsely depressed AST levels. Patients should be drawn forAST before the initial administration of either drug. ID Date Data Source [id number] 02/28/2021 10:03:00 PM EDT [facility] Name Value Range Interpretation Code Description Data Stephanie rce(s) Supporting Document(s) WBC 10.31 x10E3/uL 4.0-10.5 N [facility] l RBC 4.19 x10E6/uL 4.20-5.40 [facility] Hemoglobin 12.3 g/dL 12.0-16.0 [facility] Hematocrit 37.1 % 37.0-47.0 [facility] MCV 88.5 fL 81.0-99.0 [facility] MCH 29.4 pg 27.0-31.0 [facility] MCHC 33.2 g/dL 32.7-35.6 [facility] RDW 12.2 % 11.5-14.0 [facility] Platelet count 274 x10E3/uL 150-450 N [facility] ital MPV 9.7 fl 6.9-9.5 [facility] Neutrophils 60.8 % 34-64 [facility] Lymphocytes 29.1 % 25-45 [facility] Monocytes 8.0 % 1.7-10.6 [facility] Eosinophils 1.4 % 0.4-7.0 [facility] Basophils 0.2 % 0.1-2.0 [facility] Imm. Gran. 0.5 % 0.1-2.0 [facility] Abs. Neutro. 6.28 x10E3/uL 1.2-7.6 [facility] Abs. Lymph. 3.00 x10E3/uL 1.0-3.5 [facility] Abs. Levy. 0.82 x10E3/uL 0.1-1.0 [facility] Abs. Eosin. 0.14 x10E3/uL 0.1-0.7 [facility] Abs. Baso. 0.02 x10E3/uL 0.0-0.1 [facility] Abs. Imm. Gran. 0.05 x10E3/uL 0.0-0.1 [facility] ANRBC% 0 % 0 [facility] ID Date Data Source [id number] 03/01/2021 12:39:00 PM EDT [facility] Physician DocumentationClaxton-Cristina Hinkle edical CenterName: Yareli DuvallAge: 20 yrsSex: FemaleDOB: 2000MRN: [id number] Date: 02/28/2021Time: 21:08Account#: [id number] [id number] MD: NONE, - Per PatientED Physician Nils ArguetaDisposition Summary:03/01/21 11:57Discharge OrderedLocation: Home Self Care afProblem: an ongoing problem afSymptoms: are unchanged afCondition: Stable afDiagnosis- Bipolar disorder, unspecified afFollowup: af- With: Private Physician- When: 1 week- Reason: Recheck today's complaintsDischarge Instructions:- BIPOLAR DISORDER af- Discharge Summary Sheet ob27Liari:- Medication Reconciliation af- Medication Reconciliation Form - 2nd Copy afHPI:02/2021:26 This 20 yrs old White Female presents to ER via Police with nu8oemxgvocqq of Psych Problem.21:26 Associated signs and symptoms: Pertinent negatives: abdominal pain, rb9drvhx pain, fever, headache, nausea, shortness of breath, vomiting.Patient is brought in by police for mental health evaluation. Patientreports suicidal ideation with a plan to jump into traffic. She hasattempted suicide in the past by overdose. She is feeling anxious anddepressed. Denies any homicidal ideation or hallucinations. Shereports that she has been taking her medications. She was last in theER for mental health evaluation on February 21 [...] Temp 97.8; Pulse Ox 97% ; Weight fv7265.95 kg; Height 5 ft. 6 in. (167.64 cm);22:59 BP 120 / 64; Pulse 75; Resp 16; Pulse Ox 97% ; jw508/2:37 ml408/2020:15 Body Mass Index 38.41 (107.95 kg, 167.64 cm) jw512:37 refused vitals ml4MDM:02/2021:11 Patient medically screened. th408/2106:53 Data reviewed: vital signs, nurses notes, lab test result(s). ED mn3ivltzl: Patient remained stable in the ER. Patient here for mentalhealth evaluation as above. Case is endorsed to Dr. Riac oliver of shift pending PSA evaluation disposition. Patient ismedically clear and has been cooperative..02/2021:18 Order name: Acetaminophen Level; Complete Time: 22:15 508:18 Order name: CBC with diff; Complete Time: 22:15 jw508:18 Order name: CMP; Complete Time: 22:15 jw508:18 Order name: ETOH; Complete Time: 22:15 jw508:18 Order name: Glucose jw:18 Order name: Salicylate Level; Complete Time: 22:15 jw508:18 Order name: Triage - Drug Screen; Complete Time: 22:15 :18 Order name: UA; Complete Time: 22:15 :18 Order name: Urine HCG Qualitative; Complete Time: 22:15 :17 Order name: COVID-19 PROFILE+LAB; Complete Time: 12:00 :18 Order name: Diet - Mental Health Tray (call dietary); Complete Time: jw523:00002/2021:18 Order name: Belongings List :18 Order name: Document Weight and Height for BMI; Complete Time: 23:00 :18 Order name: Mental Health Evaluation; Complete Time: 00:43 :18 Order name: Mental Health Level 3; Complete Time: 23::18 Order name: VS q shift; Complete Time: 23::16 Order name: Medically Cleared for Eval by- Psychosocial, Sub Prior th4(.PSA); Complete Time: 04::17 Order name: EKG in Patient's Room; Complete Time: 08:31 :17 Order name: EKG.; Complete Time: 08:31 fbgDispensed Medications:02/2023:22 Drug: Latuda 80 mg Route: PO; sc:22 Follow up: Response: No adverse reaction sc:22 Drug: Prazosin 1 mg Route: PO; sc:43 Follow up: Response: No adverse reaction sc:22 Drug: Propranolol 10 mg Route: PO; sc:22 Follow up: Response: No adverse reaction sc:22 Drug: pravastatin Sodium 20 mg Route: PO; sc:32 Follow up: Response: No adverse reaction sc307:06 Drug: Acetaminophen 650 mg [acetaminophen 325 mg tablet (2 tabs)] eb8Uceav: PO;09:45 Drug: Propranolol 10 mg [propranolol 10 mg tablet (1 tabs)] Route: PO;fbg09:46 Drug: sertraline 150 mg [sertraline 50 mg tablet (3 tabs)] Route: PO; fbg09:46 Drug: Topiramate 75 mg [topiramate 25 mg tablet (3 tabs)] Route: PO; fbgSignatures:Dispatcher [employer] Vincenzo Acosta RN RN fbgFedoroAnshul casillas MD MD afHowland, Todd, MD MD wn6UchulFortunato humphrey, RN RN kw3Eekalarn, Geno, RN RN sc3 Name Value Range Interpretation Code Description Data Stephanie rce(s) Supporting Document(s) ID Date Data Source [id number] 03/01/2021 12:39:00 PM EDT [facility] Nurse's NotesClaxton-Was[facility] Tootie terName: Yareli DuvallAge: 20 yrsSex: FemaleDOB: 2000MRN: [id number] Date: 02/28/2021Time: 21:08Account#: [id number] MD: NONE, - Per PatientDiagnosis: Bipolar [...] of amount of people live, such as care home, familycare, fci, etc? no. Have you traveled to a location with widespreador ongoing COVID-19 community spread or outside of [facility]? no Haveyou traveled internationally or had contact with someone that hastraveled and has been ill in the past 3 weeks? no Have you receivedthe COVID vaccine? Yes. Communicable Disease Screen: Negative forfever>/= 100 degrees Fahrenheit. Communicable disease screen isnegative. (-) rash or unusual skin lesion (-) travel/contact withtraveler (-) respiratory symptoms. Communication Speaks Indian? Yes,is preferred language.21:09 Acuity: Triage 2 jw521:09 Method Of Arrival: Police jw521:11 Acuity Assignment: Triage 2 uu3Sqfkuo Assessment:21:14 General: Appears in no apparent distress, Behavior is cooperative. ah9Fscffc Screening: (1)Signs/symptoms infection Sepsis is notsuspected. Pain: [...] threats or abuse. Denies injuries from another. tq5Fahpopkrokr screening: No deficits noted. Offer of HIV testing:patient was previously offered screening. Fall Risk None identified.Assessment:22:58 Reassessment: Patient appears in no apparent distress at this time. jw508/2:36 Reassessment: No changes from previously documented assessment. ww4Cexuilzvmoaa:02/2022:21 SAFE Act Report Not Completed. Intervention: Observation Level 3. nhReferral Information: Evaluation referral is generated by a policeagency: [employer]. The patient was referred for evaluation [...] Pt states that she was inpatient at [facility] from02/21/21-02/25/21. Pt states that she is [facility] outpatient [facility] to [facility] and she has anappointment next week but [...] guns. Pt statesthat she has court in [place] on March 18. Pt does not presentwith delusional thoughts. Delusions are denied, Hallucinations aredenied. Patient's mood is depressed, Having thoughts of suicide. Planfor suicide is jumping into trffic. Patient reports history ofanxiety, Bipolar Disorder, Depression, self - mutilation, suicideattempt: many Mental Health Admissions: 02/21-02/25/2021 [facility] Outpatient Mental Health Services: Psychiatrist / Agency:[facility]. Living Environment: Family /Home Support: poor The [...] informed of patient's status at 11:53, ED VNgt98lrvtpsfj of patients status at 11:53. Disposition: Medically clearedfor disposition by Dr Argueta. Psychiatric Consult is performed byphone with Dr Almaguer The patient has a safe destination which is Ptwill be discharged home per Dr. Almaguer. Pt can contract for safety anddenies SI/HI. Pt will follow up with [facility]. Pt provided contactinformation for PSA and [employer]. Pt will come to the ED if problemscontinue or worsen. DSM-V DX [place] I diagnosis: Bipolar D/O, depressedAxis II diagnosis: Deferred [place] III diagnosis: None. [place] IVdiagnosis: poor impulse control. The patient is not a service memberor dependent. [place] Suicide Severity Rating Scale:Suicidal Ideation Rating 0; Intensity of Ideations Rating 0; SuicidalBehavior Rating 0.Psych:02/2021:18 Subjective: Patient's mood is irritable, Delusions are denied, pv9Brxbkrpxsbuemf are denied Having thoughts of suicide. Plan [...] Temp 97.8; Pulse Ox 97% ; Weight fs6056.95 kg; Height 5 ft. 6 in. (167.64 [...] mg [acetaminophen 325 mg tablet (2 tabs)] mz6Jaosr: PO;09:45 Drug: Propranolol 10 mg [propranolol 10 [...] no functional deficits.12:39 Patient left the ED. re3Ekyqzlyccw:Vincenzo Luis RN RN fbgBrownFortunato ESA ESA jabFedorowicz, Arthur, MD MD afHowland, Todd, MD MD ut9GasvgFortunato Mark RN RN zl4PppcIna Jack Nicole nhLynch, McKenzie, RN RN oo0IxleqdurGeno santana RN RN sc3 Name Value Range Interpretation Code Description Data Stephanie rce(s) Supporting Document(s) ID Date Data Source [id number] 02/26/2021 08:59:13 AM EDT [facility] Name Value Range Interpretation Code Description Data Stephanie rce(s) Supporting Document(s) Discharge Summary [facility] LUOQKx8vVaPEFaBl84/HSViqUFXil8ApIDouRUn9QSvySQSyF0TeYQH1xT0aQAP7OCgWAsLpVzEpDOH3 lbm [file] ICAgICAgICAgICAgICAgICAgICAgICAgICAgICAgIC AgICAgICAgICAgICAgICAgICAgICAgICAgICAgICAgDQogICAgICAgICAgICAgICAgICAgICAgICAgIC AgICAgICAgICAgICAgICAgICAgICAgICAgICAgICAgICAgICAgICAgICAgICAgICAgICAgICAgICAgIC AgICAgICAgICAgICAgDQogICAgICAgICAgICAgICAg ICAgICAgICAgICAgICAgICAgICAgICAgICAgICAgICAgICAgICAgICAgICAgICAgICAgICAgICAgICAg ICAgICAgICAgICAgICAgICAgICAgICAgDQogICAgICAgICAgICAgICAgICAgICAgICAgICAgICAgICAg ICAgICAgICAgICAgICAgICAgICAgICAgICAgICAgIC AgICAgICAgICAgICAgICAgICAgICAgICAgICAgICAgICAgDQogICAgICAgICAgICAgICAgICAgICAgIC AgICAgICAgICAgICAgICAgICAgICAgICAgICAgICAgICAgICAgICAgICAgICAgICAgICAgICAgICAgIC AgICAgICAgICAgICAgICAgDQogICAgICAgICAgICAg ICAgICAgICAgICAgICAgICAgICAgICAgICAgICAgICAgICAgICAgICAgICAgICAgICAgICAgICAgICAg ICAgICAgICAgICAgICAgICAgICAgICAgICAgDQogICAgICAgICAgICAgICAgICAgICAgICAgICAgICAg ICAgICAgICAgICAgICAgICAgICAgICAgICAgICAgIC AgICAgICAgICAgICAgICAgICAgICAgICAgICAgICAgICAgICAgDQogICAgICAgICAgICAgICAgICAgIC AgICAgICAgICAgICAgICAgICAgICAgICAgICAgICAgICAgICAgICAgICAgICAgICAgICAgICAgICAgIC AgICAgICAgICAgICAgICAgICAgDQogICAgICAgICAg ICAgICAgICAgICAgICAgICAgICAgICAgICAgICAgICAgICAgICAgICAgICAgICAgICAgICAgICAgICAg ICAgICAgICAgICAgICAgICAgICAgICAgICAgICAgDQogICAgICAgICAgICAgICAgICAgICAgICAgICAg ICAgICAgICAgICAgICAgICAgICAgICAgICAgICAgIC PaCBKkEYWgYIDeVWBbZQSuTODjNMXnHURkQBYdZGLzTYIjHBBzXJDtZAk2M2yxDTJdDBStBP0rKJq5Lr 8+HBkIBcTeLZL4pkTnrK8JCZ6am6OkANxqDBBdi3GaGBe6PW7LRUSeWJzgNW0UODiaez3UVQNuCCOkmS MKa7yjRqIbDPF9FBXkNytgJZ7IEPHvC5owgwMpKVBq LPRIWIedVGXCCQncTHWJDBXfTOPvEtOnPvByZPJtFWLoADCTGGM7DKBsVvDuTWOxPLIzOoJqGLLILJDh HLNtBqFvNHeeJF4Zg0XidNYlQZ1KTm1OGaOfTG1yjt2RTZHsHJLiYraAVqw0LJghFT5KoFLhiCG4XXEc IHNQTzQoV6iah4MeMIPkDCXJQHzfUT9Pw6PdhFXcBP o+Nc9JRM8st9JhFDh4BZJeAZ0gzm9FZKhBDgAgZ8RdtWkaYCTkj8NiKKDyZLDCgH8mLZR6JMX3MZptpB ElepBbHOEREEEstDryrlrdLLUnBFLtUX4gPb6qKGBhBDSbEaB4EQZRRV4EOLXjVXIzrICqWLUcJHCMQU 4XRKuhHJY5VQOcolHxjHDmLTvwBR6LPJLpwzIoCBPa MCBSDQo+Fd1SYL1iz9LhDHj3FuToKE0zsv2DTSjJXzTaM6Q7rXHhG2W4ZYylBx0EDKYpTXDfYWFgMSRU DHsxDJ6PII8zevQ7KO2WkBTmBWXdQFUaxACvKLl1G72dnPRpGPmwAO5KTAW+Dillon+Vl3HRRVuZQQqZKQh YiPnJSXOHoSoW2WkW0AKa0YaP0LfRL12bCdjzpYvSV epWK7APZ8lKDUsCIHCYZ8GvGDctH3dfaJ6HCGlXBRJDqIvS68lgWFaQFLgEPUpTXGfSe4TCMTwL5Ejaq IhwTsaftSzJGIlCAKETN8MRMoaobKwnABfrUhhZW94qQoxRV6GXz6DCoQbNQ8xlu9YtDHtJa3IMOD1Jg 7LYAWfJXLbVYQkDQR6LIPpRxRnPImrRQFaYUZoTID2 RUIpTXVaNV1SFtOdUAYzRaSrXqmlWCIzWORdxv0FZLFbFTD8Kyz9AsKhNSGcJFVrWTkvKSLsNNOkLIK7 VLZnIOHxAH6LCqJrMARrPBT8HnfoDPMaTRJphu4SEWYmHGXdZBa1TULsMRKeRIXdTRhmYHYoPOZ6Avc5 NWKoFQBxNH2DQyHgYGObZVt8CNAbEPOrVNPiez8VDE SoMUBhUme3GSYjXDCgNMHtFGofHDAxKTHxFSAaPBMoCNZtKN2TOwDeVJJaXIH6NHvsYGGrLIUatm6JVB DmAUEvKFuwSpUmVHVuYYWoUDrqJKSqBNXmRAD7COBkRJWkTK2NStLkSNCvRiZzXSYdOFZxCOTtod2VBT CzLARdFcsrTRRpNAUoXYWgJJwwFLLuWGJ2VXQ7LBUd AQAkNB6XJgHgXJTsZxm5YRSgXFUxCHYozp3FVJQyFKKbDgm2GXFjNTEeCEArSYbpSMAnRGTcTMdtDOUe HUAcLA0ZVzBcANEiNcC3MSAcXKCpGTXhsd3XDDBzVRFfSGLsAPEvYETzGIDbAXewIDFoJGM0PLD1EDVf MLGqKR4HDfCxWRFpYnP5QADtNMHzHWHmjs7ZPUFnRK KyZwVvNASfVUKtPNCyCVldAXRjIHC9NSmbIDNaFSQgPU5FWeKsMEUzRnb0WwfqKVUxAJFuzr7ENEQlJL JoSut8LPErYCAaRCCaQAieLKJtQBL6DGVyYQVqVPMqWB6XKrVcQKDuMaeyTIOeCREgEHNhyo1WBNHpYF AzOTMwMCAwMDAwMCBuDQowMDAwMDQwMjYwIDAwMDAw JA4UIiVyDACoJWC8CTlwNSSiHIJjjg2FHXRjIKI9BQG9JBCbUOZxIYDrRKhoXEJnBVDbMzVhIVCuSKEg JS9LCbWrWYKcPKB5EIAbLXSlKVHrid2ORSWsLYY7MSy7VIVjXPBaSOWgEVzsQOHqFVApAWXrICUvSWVb NK3DGoGvMWDgSUOnVlWxCREnILEddg6CTFFlQZC7Bk O8IlOiHEZpAWOjRIxyWBLcHJZ9FfTvCPNiWNAiDD1FAmSjJHPiCKIeBaZbPWUsTBXzks9KJIGoPYZ7LH Z6CBKpVIFiBLXiMHlyJMHfCPU5ZIF8OARkBONqHY9PYzOySBZjRAS5LRIkDZQrPZVagv4VODEcSZL7HX UmKIMjXPJcWCMoHXvdYNAvMBBjUXLmGEStQTHiXI6D NvYnZUZiAjBoHXlyGQMdOYKxjp9OJHHoFVD6NKO0OMAiUWDjMOCxQDotEHOoKTLpRJS2SIXqGKZbJI4Q JpYqWKYbSuN8TBkoPOCmJKMubo3CTOUuGUW9CIc6ZDMzREGcUVIrJUzbHWTqYNMrVSG2IOWaMDYvKR8Z DsTuOIUlYbH7LwBpPETyPQStzz2BHWXtSWE8WWPnXf XvABXvCWBeCWehARTrCHZ6MSl0DZIbIZIaUN8VHwHsNZPxXaDtETDhTYGhAPZvij1OeSObvUrdhn3YCZ xENe9GlNjqJZS1WMdbOs4egIC6BtLqIILWZl1IygUjNYMgWRUTBTitTWLfIYK7GvBqBmOeAWMxRcX3U2 PhIMqzCnXvYRWvMZMbHeQvVwK2Ppv0M8RaSaS7ZPYb YOZpMQMrKPIrWjX6EDMaECNlIPR+JD8gYCm+Dc1Yh8TwjtY4xjWiRAc0GEA5Qw1HNHTAH8YOEn== ID Date Data Source [id number] 02/23/2021 04:37:10 PM EDT [facility] Name Value Range Interpretation Code Description Data Stephanie e(s) Supporting Document(s) History and Physical [facility]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 [facility] GFR > 60 mL/min [facility] CHLORIDE 110 mmol/L 99-110 [facility] NA 142 mmol/L 136-147 [facility] POTASSIUM 4.1 mmol/L 3.5-5.1 [facility] TCO2 24 mmol/L 20-33 [facility] ANION GAP 12.1 10.0-20.0 [facility] CA 8.4 mg/dL 8.3-10.7 [facility] ALKALINE PHOS 118 U/L 45-117 [facility] TP 7.4 g/dL 6.0-7.8 [facility] ALB 3.6 g/dL 3.5-5.0 [facility] ESRD Dialysis patient Albumin reference range: 2.9-4.4 g/dL GL 3.8 g/dL 2.3-3.5 H [facility] A/G 0.9 1.0-2.5 [facility] T. BILIRUBIN 0.3 mg/dL 0.1-1.1 [facility] The [employer] [place] Total Bilirubin is n ot recommended forpatients undergoing treatment with eltrombopag (Promacta)due to the potential for falsely elevated results. ALTI 41 U/L 6-54 [facility] Patients taking Sulfasalazine and/or Sul fapyridine may havefalsely depressed ALT levels. Patients should be drawn forALT before the initial administration of either drug. AST 19 U/L 6-38 [facility] Patients taking Sulfasalazine and/or Sul fapyridine may havefalsely depressed AST levels. Patients should be drawn forAST before the initial administration of either drug. ID Date Data Source [id number] 02/19/2021 02:51:00 AM EDT [facility] [place] Name Value Range Interpretation Code Description Data Stephanie rce(s) Supporting Document(s) WBC 8.83 x10E3/uL 4.0-10.5 [facility] RBC 4.16 x10E6/uL 4.20-5.40 [facility] Hemoglobin 12.4 g/dL 12.0-16.0 [facility] Hematocrit 37.6 % 37.0-47.0 [facility] MCV 90.4 fL 81.0-99.0 [facility] MCH 29.8 pg 27.0-31.0 [facility] MCHC 33.0 g/dL 32.7-35.6 [facility] RDW 12.2 % 11.5-14.0 [facility] Platelet count 227 x10E3/uL 150-450 [facility] ital MPV 9.3 fl 6.9-9.5 [facility] Neutrophils 58.2 % 34-64 [facility] Lymphocytes 32.5 % 25-45 [facility] Monocytes 6.9 % 1.7-10.6 [facility] Eosinophils 1.9 % 0.4-7.0 [facility] Basophils 0.2 % 0.1-2.0 [facility] Imm. Gran. 0.3 % 0.1-2.0 [facility] Abs. Neutro. 5.13 x10E3/uL 1.2-7.6 [facility] Abs. Lymph. 2.87 x10E3/uL 1.0-3.5 [facility] Abs. Levy. 0.61 x10E3/uL 0.1-1.0 [facility] Abs. Eosin. 0.17 x10E3/uL 0.1-0.7 [facility] Abs. Baso. 0.02 x10E3/uL 0.0-0.1 [facility] Abs. Imm. Gran. 0.03 x10E3/uL 0.0-0.1 [facility] spital ANRBC% 0 % 0 [facility] ID Date Data Source [id number] 02/19/2021 10:15:00 AM EDT [facility] [place] Physician DocumentationClaxlexy-Cristina Hinkle edical CenterName: Yareli DuvallAge: 20 yrsSex: FemaleDOB: 2000MRN: [id number] Date: 02/19/2021Time: 02:28Account#: [id number] MD: NONE, - Per PatientED Physician Richie العليposition Summary:02/19/21 09:20Discharge OrderedLocation: Home Self Care seProblem: an ongoing problem seSymptoms: are unchanged seCondition: Stable seDiagnosis- Bipolar disorder, unspecified seFollowup: se- With: Private Physician- When: as instructed- Reason: Recheck today's complaints, Continuance of careDischarge Instructions:- BIPOLAR DISORDER se- Discharge Summary Sheet xj86Ewkuu:- Medication Reconciliation se- Medication Reconciliation Form - 2nd Copy seHPI:02/1104:51 This 20 yrs old White Female presents to ER via Police with nl9onvylujevk of Psych Problem.04:51 The patient presents to the emergency department with PT. BROUGHT TO [facility] BY [facility] FOR MHE. PT. HAS BEEN DEPRESSED & HAS SI WITH PLAN TO SELFHARM OR DROWN SELF, SHE HAS SMALL SUPERFICIAL SKIN BURN LT. 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 Onset: The symptoms/episode began/occurred just priorto arrival. Past psychiatric history: Prior diagnosis: bipolardisorder. Associated signs and symptoms: The patient has no apparentassociated signs or symptoms. Severity of symptoms: At their worstthe symptoms were moderate.IT ARCHITECT:02:34 LMP N/A - Irregular menses me7Qhjxhlqfbf:- Allergies: Haldol; Risperdal;- Home Meds:1. ibuprofen 400 [...] Psych: Positive for depression, homicidal ideation, suicidal ku4bqyydxud, Negative for drug dependence, alcohol dependence, auditoryhallucinations, [...] Temp 97.8; Pulse Ox 98% ; Weight gj0102.33 kg; Height 5 ft. 6 in. (167.64 cm);09:45 BP 131 / 84; Pulse 72; Resp 20; Temp 97.9; Pulse Ox 97% ; Pain 0/10; ef102:34 Body Mass Index 37.12 (104.33 kg, 167.64 cm) [facility]:02/1004:54 Data reviewed: vital signs, nurses notes, lab test result(s). na108/1103:30 Patient medically screened. na2:37 Order name: Acetaminophen Level; Complete Time: 04:50 :37 Order name: CBC with diff; Complete Time: 04:50 :37 Order name: CMP; Complete Time: 04:50 :37 Order name: ETOH; Complete Time: 04:50 :37 Order name: Glucose :37 Order name: Salicylate Level; Complete Time: 04:50 :37 Order name: Triage - Drug Screen; Complete Time: 09:20 9:20 Interpretation: Within normal limits. :37 Order name: UA; Complete Time: 09:21 9:21 Interpretation: Normal except: USG 1.030. :37 Order name: Urine HCG Qualitative; Complete Time: 09:21 :21 Interpretation: Within normal limits. :37 Order name: Diet - Mental Health Tray (call dietary); Complete Time: jw507:82:37 Order name: Belongings List; Complete Time: 09:45 :37 Order name: Document Weight and Height for BMI; Complete Time: 07:27 2:37 Order name: Mental Health Evaluation; Complete Time: 09:45 :37 Order name: Mental Health Level 3; Complete Time: 07:27 :37 Order name: VS q shift; Complete Time: 07:27 4:50 Order name: Medically Cleared for Eval by-Psychosocial, Sub Prior na1(.PSA); Complete Time: 05:05Dispensed Medications:No medications were administeredSignatures:Dispatcher [employer] Kylie Fishman MD MD seAl-Hussein, Nabeel, MD MD na1White, Jason RN RN go2BshmpdigAmi Medrano RN RN wj7Giksubuvmjj: (The following items were deleted from the chart)02:33 02:31 Home Meds: loratadine 10 mg oral TbDi once daily; jw5 jw5 Name Value Range Interpretation Code Description Data Stephanie rce(s) Supporting Document(s) ID Date Data Source [id number] 02/19/2021 10:15:00 AM EDT [facility] [place] Nurse's NotesClaxton-Washtucna Medical Tootie terName: Yareli PatelvallAge: 20 yrsSex: FemaleDOB: 2000MRN: [id number] Date: 02/19/2021Time: 02:28Account#: [id number] MD: NONE, - Per PatientDiagnosis: Bipolar disorder, unspecifiedPresentation:02/1102:29 Presenting complaint: Patient brought in by [facility] officer Lilly emmanuelfor mental health evaluation Patient reports feeling suicidal andhomicidal patient reports plan for suicide is to self harm or todrown self and homicidal towards mother. International Travel FeverNo. Coronavirus Screening: Have you been diagnosed with COVID-19 inthe past 30 days? no Are you currently on quarantine by [facility]? no Flu-like symptoms reported in the last 14 days: no. Haveyou had close contact with confirmed or suspected COVID-19 case? noDo you live in a setting where a large of amount of people live, suchas care home, family care, fci, etc? no. Have you traveled to [facility] with widespread or ongoing COVID-19 community spread [facility]? no Have you traveled internationally or hadcontact with someone that has traveled and has been ill in the past 3weeks? no Have you received the COVID vaccine? Yes. CommunicableDisease Screen: Negative for fever>/= 100 degrees Fahrenheit.Communicable disease screen is negative. (-) rash or unusual skinlesion. Communication Speaks Indian? Yes, is preferred language.02:29 Acuity: Triage 2 jw502:29 Method Of Arrival: Police jw502:31 Acuity Assignment: Triage 2 wv0Fdtgss Assessment:02:33 General: Appears in no apparent distress, Behavior is cooperative. zm5Ujmild Screening: (1)Signs/symptoms infection Sepsis is notsuspected. Pain: [...] (SA). Positive screen for suicide risk. MD pro vider aware ofpositive screen, suicide precautions implemented. ESS-6 ordered.IT ARCHITECT:02:34 LMP N/A - Irregular menses py3Uhrktqzsca:- Allergies: Haldol; Risperdal;- Home Meds:1. ibuprofen 400 [...] threats or abuse. Denies injuries from another. oq3Ncbwpisfnpm screening: No deficits noted. Offer of HIV testing:patient was previously offered screening. Fall Risk None identified.Assessment:07:47 Derm: abrasion noted to left forearm; bacitracin applied. General: kw8Rzlyggy in no apparent distress, obese, Behavior is cooperative.Neuro: Level of Consciousness is awake, alert, obeys commands,Oriented to person, place, time. Respiratory: Airway is patentRespiratory effort is even, unlabored.Psychosocial:05:05 SAFE Act Report Not Completed. Intervention: Observation Level 3. [facility] health consult is initiated at 05:00. Referral [...] two daysago by burning herself with a statistical clerk. Pt has an extensive inpatientmental health history, the last time being admitted was 01/02/21 afteran overdose. [facility]. Pt [...] Support: poor The patient currentlylives in a [facility] residence. The patient is single. Detox / [...] informed of patient's status at 09:09, ED RIwa61dzuakvbu of patients status at 09:09. Disposition: Medically clearedfor disposition by Dr Levy. Psychiatric Consult is performed byphone with Dr Dylan Cabrera NP The patient has a safe destinationwhich is Pt will be discharged home to [facility] per Dylan Cabrera NP. Ptcan contract for safety and denies SI/HI. Pt will follow up with [facility].Pt provided contact information for [facility] and [facility]. Pt will come tothe ED if problems continue or worsen. DSM-V DX [place] I diagnosis:Bipolar D/O, mixed [place] II diagnosis: Deferred [place] III diagnosis:None. [place] IV diagnosis: poor impulse control. Abuse/DV Screen: Thepatient / caregiver reports he/she is not in a situation that causesfear, pain or injury. The patient is not a dining service worker or militarydependent. [place] Suicide Severity Rating Scale: Suicidal IdeationRating 0; Intensity of Ideations Rating 0; Suicidal Behavior Rating 0.Psych:02:35 Subjective: Patient's mood is sad, Delusions are denied, ps2Rwqwxgrgceizok are denied Having thoughts of suicide. Plan [...] Temp 97.8; Pulse Ox 98% ; Weight tk3267.33 kg; Height 5 ft. 6 in. (167.64 [...] Physician. se09:45 No Physician assisted procedures completed. eb4Blomugagenzs Medications:No medications were administeredOutcome:09:20 Discharge ordered by . se09:45 Disposition: Discharged to home ef109:45 Condition: stable, Provider notified of abnormal vital signs.09:45 Discharge instructions given to patient, Instructed on dischargeinstructions, follow up and referral plans. Demonstratedunderstanding of instructions.09:45 Discharge Assessment: Patient verbalized understanding of dispositioninstructions. Patient has no functional deficits.10:15 Patient left the ED. xq8Njyuwjvbgk:Kylie العلي MD MD seAl-Hussein, Nabeel, MD MD na1White, Jason, RN RN ur2TahtoaviAmi arthur RN RN qk2GrfeIna Jack Nicole nhCorrections: (The following items were deleted from the chart)02:33 02:31 Home Meds: loratadine 10 mg oral TbDi once daily; jw5 jw505:15 05:06 Subjective: The patients chief complaint is [facility]ations with a plan to [...] days ago by burning herself with a statistical clerk. Pt has anextensive inpatient mental health history. Pt goes to [facility] for outpatient services where she sees Sadaf. Pt doesnot know when her next appointment is. Pt . [place] Name Value Range Interpretation Code Description Data Stephanie renner(s) Supporting Document(s) ID Date Data Source [id number] 02/17/2021 04:09:00 AM EDT [facility] Name Value Range Interpretation Code Description Data Stephanie rce(s) Supporting Document(s) SALICYLATE < 1.7 mg/dL 0.0-20.0 [facility] ID Date Data Source [id number] 02/17/2021 04:09:00 AM ED[facility] Name Value Range Interpretation Code Description Data Stephanie rce(s) Supporting Document(s) AC[facility]AMINOPHEN < 2.0 ug/mL 0-[facility] Date Data Source [id number] 02/17/2021 04:09:00 AM EDT [facility] Name Value Range Interpretation Code Description Data Stephanie rce(s) Supporting Document(s) ETOH NONE DETECTED [facility] NONE DETECTED ID Date Data Source [id number] 02/17/2021 04:09:00 AM EDT [facility] Name Value Range Interpretation Code Description Data Stephanie rce(s) Supporting Document(s) GLU 102 mg/dL 70-110 [facility] Patients taking Sulfasalazine may have f alsely depressedGlucose levels. Patients taking Sulfapyridine may havefalsely elevated Glucose levels. Patients should be drawnfor Glucose before the initial administration of eitherdrug. BUN 20 mg/dL 7-23 [facility] CRE 0.620 mg/dL 0.500-1.300 [facility] GFR > 60 mL/min [facility] CHLORIDE 111 mmol/L 99-110 [facility] NA 142 mmol/L 136-147 [facility] POTASSIUM 3.5 mmol/L 3.5-5.1 [facility] TCO2 22 mmol/L 20-33 [facility] ANION GAP 12.5 10.0-20.0 [facility] CA 9.0 mg/dL 8.3-10.7 [facility] ALKALINE PHOS 112 U/L 45-117 [facility] TP 7.3 g/dL 6.0-7.8 [facility] ALB 3.8 g/dL 3.5-5.0 [facility] ESRD Dialysis patient Albumin reference range: 2.9-4.4 g/dL GL 3.5 g/dL 2.3-3.5 [facility] A/G 1.1 1.0-2.5 [facility] T. BILIRUBIN 0.3 mg/dL 0.1-1.1 [facility] The Dimension [place] Total Bilirubin is n ot recommended forpatients undergoing treatment with eltrombopag (Promacta)due to the potential for falsely elevated results. ALTI 43 U/L 6-54 [facility] Patients taking Sulfasalazine and/or Sul fapyridine may havefalsely depressed ALT levels. Patients should be drawn forALT before the initial administration of either drug. AST 19 U/L 6-38 [facility] Patients taking Sulfasalazine and/or Sul fapyridine may havefalsely depressed AST levels. Patients should be drawn forAST before the initial administration of either drug. ID Date Data Source [id number] 02/17/2021 03:47:00 AM EDT [facility] [place] Name Value Range Interpretation Code Description Data Stephanie rce(s) Supporting Document(s) WBC 9.27 x10E3/uL 4.0-10.5 [facility] RBC 4.10 x10E6/uL 4.20-5.40 [facility] Hemoglobin 12.1 g/dL 12.0-16.0 [facility] Hematocrit 36.7 % 37.0-47.0 [facility] MCV 89.5 fL 81.0-99.0 [facility] MCH 29.5 pg 27.0-31.0 [facility] MCHC 33.0 g/dL 32.7-35.6 [facility] RDW 12.4 % 11.5-14.0 [facility] Platelet count 224 x10E3/uL 150-450 [facility] ital MPV 9.3 fl 6.9-9.5 [facility] Neutrophils 61.0 % 34-64 [facility] Lymphocytes 30.1 % 25-45 [facility] Monocytes 6.7 % 1.7-10.6 [facility] Eosinophils 1.6 % 0.4-7.0 [facility] Basophils 0.2 % 0.1-2.0 [facility] Imm. Gran. 0.4 % 0.1-2.0 [facility] Abs. Neutro. 5.65 x10E3/uL 1.2-7.6 [facility] Abs. Lymph. 2.79 x10E3/uL 1.0-3.5 [facility] Abs. Levy. 0.62 x10E3/uL 0.1-1.0 [facility] Abs. Eosin. 0.15 x10E3/uL 0.1-0.7 [facility] Abs. Baso. 0.02 x10E3/uL 0.0-0.1 [facility] Abs. Imm. Gran. 0.04 x10E3/uL 0.0-0.1 N [facility] spital ANRBC% 0 % 0 [facility] ID Date Data Source [id number] 02/17/2021 04:05:00 AM EDT [facility] [place] Name Value Range Interpretation Code Description Data Stephanie rce(s) Supporting Document(s) PCP VISTA NEG NEGATIVE [facility] MINIMUM LEVEL OF DETECTION IS 25 ng/ml BENZODIAZEPINES NEG NEGATIVE [facility] MINIMUM LEVEL OF DETECTION IS 200 ng/ml COCAINE VISTA NEG NEGATIVE [facility] MINIMUM LEVEL OF DETECTION IS 300 ng/ml AMPHETAMINES NEG NEGATIVE [facility] MINIMUM LEVEL OF DETECTION IS 1000 ng/ml [facility] CUTOFF CONCENTRATION IS 200 ng/ml CANNABINOIDS NEG NEGATIVE [facility] al CUTOFF CONCENTRATION IS 50 ng/ml METHADONE VISTA NEG NEGATIVE [facility] al MINIMUM LEVEL OF DETECTION IS 300 ng/ml OPIATE VISTA NEG NEGATIVE [facility] MINIMUM DETECTION LEVEL IS 300 ng/ml ID Date Data Source [id number] 02/17/2021 03:48:00 AM EDT [facility] Name Value Range Interpretation Code Description Data Stephanie rce(s) Supporting Document(s) URINE COLOR Yellow [facility] UAPR Cloudy [facility] UGLU Negative NEGATIVE [facility] URINE BILIRUBIN Negative NEGATIVE [facility] UKET Negative NEGATIVE [facility] USG 1.028 1.010-1.025 [facility] UBLO Negative NEGATIVE [facility] UpH 5.0 5.0-8.0 [facility] UPRO Negative Negative [facility] UUB 1.0 mg/dL 0.2-1.0 N [facility] UNIT Negative Negative [facility] ULEU Negative Negative [facility] ID Date Data Source [id number] 02/17/2021 01:54:00 PM EDT [facility] Physician DocumentationClaxton-Cristina Hinkle edical CenterName: Yareli PatelvallAge: 20 yrsSex: FemaleDOB: 2000MRN: [id number] Date: 02/17/2021Time: 03:10Account#: [id number] 2Private MD:ED Physician Thea Bowman Summary:02/17/21 12:48Discharge [...] presents to ER via Private Vehicle with ky6wuvypdqhla of Psych Problem.03:44 Patient presents for mental health evaluation stating suicidal tj0zyorxmyv. Patient voluntarily called the police and asked [...] 50 mg Oral tab 1 tab prn jzvujifb94. Latuda 80 mg oral tab 1 tab once daily- PMHx: ADHD; ANXIETY; BIPOLAR DISORDER; Depressive disorder; PsychHx; ptsd;- PSHx: None;- Immunization history: Flu vaccine is up to date.- Social history: Smoking status: Patient uses tobacco products,current every day smoker. ETOH status Denies use of ETOH.- Advance Directives:: None.ROS:03:44 Constitutional: Negative for chills, fever. Eyes: Negative for pm3zpuuhhwzgek, vision loss. ENT: Negative for difficulty swallowing,difficulty [...] patient appears in no acute distress, alert, gq3zmzkl, comfortable, non- diaphoretic, non-toxic, well developed, obese.03:47 [...] Temp 97.6; Pulse Ox 98% on R/A; mm5Zdgzsm 104.33 kg (R); Height 5 ft. 6 in. (167.64 cm) (R); Pain 0/10;10:26 BP 119 / 73; Pulse 74; Resp 17; Temp 98.0(O); Pulse Ox 97% on R/A; jlPain 0/10;13:53 BP 130 / 77; Pulse 76; Resp 16; Temp 97.8; Pulse Ox 96% on R/A; fbg03:16 Body Mass Index 37.12 (104.33 kg, 167.64 cm) dx1Gnipydi Coma Score:03:47 Eye Response: spontaneous(4). Verbal Response: oriented(5). Motor zq6Cjktnnnh: obeys commands(6). Total: 15.MDM:03:12 Patient medically screened. dk203:50 Data reviewed: nurses notes. ED course: Patient seen and medically bz9sekrorh, is very talkative speaking to multiple members of staffmaking some inappropriate commentary but generally pleasant, pendingmental health evaluation.04:39 ED course: Laboratory studies reviewed, patient medically cleared ys3zwrotvq mental health evaluation resting comfortably.06:50 Transition of care: After a detail discussion of the patient's case, nn8znno is transferred to Anshul Strauss MD.02/903:35 Order name: Acetaminophen Level; Complete Time: 04:39 cm408/0903:35 Order name: CBC with diff; Complete Time: 04:39 cm408/0903:35 Order name: CMP; Complete Time: 04:39 cm408/0903:35 Order name: ETOH; Complete Time: 04:39 cm408/0903:35 Order na me: Glucose cm03:35 Order name: Salicylate Level; Complete Time: 04:39 cm408/0903:35 Order name: Triage - Drug Screen; Complete Time: 04:39 cm40803:35 Order name: UA; Complete Time: 04:39 cm40803:35 Order name: Diet - Mental Health Tray (call dietary); Complete Time: cm407:31002/1703:35 Order name: Belongings List; Complete Time: 07:31 cm40803:35 Order name: Document Weight and Height for BMI; Complete Time: 07:31 cm40803:35 Order name: Mental Health Evaluation cm03:35 Order name: Mental Health Level 3; Complete Time: 07:31 cm40803:35 Order name: VS q shift; Complete Time: 07:32 cm40804:39 Order name: Medically Cleared for Eval by-Psychosocial, Sub Prior jeremias2(.PSA); Complete Time: 11:55Dispensed Medications:07:32 Drug: Acetaminophen 975 [...] Derek, MD MD dk2Marcellus, Courtney, RN RN kz9Aouajkttzzp: (The following items were deleted from the chart)10:15 03:16 Home Meds: Latuda 60 mg oral tab 1 tab Twice Daily; cm4 jl10:15 10:12 Home Meds: Zoloft 150MG Oral tab once daily; jl jl Name Value Range Interpretation Code Description Data Stephanie rce(s) Supporting Document(s) ID Date Data Source [id number] 02/17/2021 01:54:00 PM EDT [facility] Nurse's NotesClaxton-Cristina Medical Tootie terName: Yareli Mejiage: 20 yrsSex: FemaleDOB: 2000MRN: [id number] Date: 02/17/2021Time: 03:10Account#: [id number] 2Polga SMITH:Diagnosis: Adjustment disorder, unspecifiedPresentation:02/903:14 Presenting complaint: Patient states: she is having suicidal thoughts cm4and anxiety. Presenting complaint: patient brought in by [facility] Karen. Coronavirus Screening: Have you been diagnosed withCOVID-19 in the past 30 days? no [facility] no Flu-like symptoms reported in the last 14 days: no.Have you had close contact with confirmed or suspected COVID-19 case?no Do you live in a setting where a large of amount of people live,such as care home, family care, fci, etc? no. Have you traveledto a location with widespread or ongoing COVID-19 community spread [facility]? no Have you traveled internationally or hadcontact with someone that has traveled and has been ill in the past 3weeks? no Have you received the COVID vaccine? Yes. Ebola ScreeningInternational Travel No. Communicable Disease Screen: Negative forfever>/= 100 degrees Fahrenheit. Communicable disease screen isnegative. (-) rash or unusual skin lesion (-) travel/contact withtraveler (-) respiratory symptoms. Communication Speaks Indian? Yes,is preferred language.03:14 Acuity: Triage 2 cm403:14 Method Of Arrival: Private Vehicle cm403:15 Acuity Assignment: Triage 2 nl2Fwwdeh Assessment:03:15 General: Appears in no apparent distress, Behavior is cooperative. do1Bagixp Screening: (1)Signs/symptoms infection No. Pain: Denies pain.PSS-3 [...] 50 mg Oral tab 1 tab prn zumlyzox49. Latuda 80 mg oral tab 1 tab once daily- PMHx: ADHD; ANXIETY; BIPOLAR DISORDER; Depressive disorder; PsychHx; ptsd;- PSHx: None;- Immunization history: Flu vaccine is up to date.- Social history: Smoking status: Patient uses tobacco products,current every day smoker. ETOH status Denies use of ETOH.- Advance Directives:: None.Screenin:17 Abuse screen: Denies threats or abuse. Denies injuries from another. fs0Shbihzokapy screening: No deficits noted. Offer of HIV testing:patient was previously offered screening. Fall Risk None identified.Assessment:03:17 Reassessment: No changes from previously documented assessment. cm405:30 Reassessment: Patient appears in no apparent distress at this time. kk306:18 Reassessment: Patient appears in no apparent distress at this time. kk307:34 Reassessment: Appears manic with conversation and behavior, Atelissa santos at bedside.Psychosocial:12:17 SAFE Act Report Not Completed. Intervention: Observation Level 3. [facility] is initiated at 11:45. Referral [...] encouraged her to go to talk to [facility] staff with theseconcerns. Pt states that she [...] PT also expresses having anappointment with the [facility] on the as well. Pt describes utilizingcoping [...] several psychiatric admissions, ptwas [facility] CurrentOutpatient Mental Health Services: [facility]. Living Environment: Family /Home Support: Good The patient currently lives in a [facility] residence.The patient is single.12:26 Patient presents to [...] is PT will be discharged home to [facility]. [facility]. Pt denies SI/HI. Pt will continue treatment through [facility] andupcoming appointments will be verified and expedited as needed. Pthas been provided with [facility] and [facility] numbers and has beeninstructed to return to the nearest ED should problems continue orworsen.12:34 DSM-V DX [place] I diagnosis: Adjustment D/O Unspecified [place] II kfdiagnosis: Deferred [place] III diagnosis: None. [place] IV diagnosis: poorcoping. [place] Suicide Severity Rating Scale: Suicidal IdeationRating 3; Intensity of Ideations Rating 13; Suicidal Behavior Rating1.Psych:03:18 Subjective: Delusions are denied, Hallucinations are denied Having xn9dygkbrrx of suicide. Plan for suicide is to drown herself. Objective:Patient is cooperative, Speech is normal, Affect is appropriate.13:54 Interventions: Observation Level Level 2. fbgVital Signs:03:16 BP 117 / 96; Pulse 76; Resp 18; Temp 97.6; Pulse Ox 98% on R/A; qy1Wgleiy 104.33 kg (R); Height 5 ft. 6 in. (167.64 cm) (R); Pain 0/10;10:26 BP 119 / 73; Pulse 74; Resp 17; Temp 98.0(O); Pulse Ox 97% on R/A; jlPain 0/10;13:53 BP 130 / 77; Pulse 76; Resp 16; Temp 97.8; Pulse Ox 96% on R/A; fbg03:16 Body Mass Index 37.12 (104.33 kg, 167.64 cm) ti0Ymvajzs Coma Score:03:47 Eye Response: spontaneous(4). Verbal Response: oriented(5). Motor ih0Ymrjzezy: obeys commands(6). Total: 15.ED Course:03:11 Patient arrived in ED. cm403:12 Anoop Bowman MD is Attending Physician. dk203:15 Triage completed. cm403:18 Patient has correct armband on for positive identification. Placed in pe4cqbu. Bed in low position. Verbal reassurance given. [...] No Physician assisted procedures completed.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 Still awaiting bed availability at [facility] for housing as per [facility]. She currently denies any physical/medical complaints.ObjectiveVital [...] SIGNED: 01/27/21 Electronically SignedTIME SIGNED: 1114 DYLAN WHITE GEMA Name Value Range Interpretation Code Description Data Stephanie rce(s) Supporting Document(s) ID Date Data Source [id number] 02/03/2021 11:47:00 AM EDT [address] HEALTH PROGRESS NOTEPATIENT NAME: [facility] HATCH [facility] PH[facility]ICIAN: BROOKLYN ONEILL MDAUTHOR: Pasquale WHITE,Ana. DATE: 01/03/21 MR#: [id number] NOTE DATE: 01/26/21 RM#: 308EVALUATION TIME: 1154 [...] her on the phone. She also states anthonyd broke up with her but it was [...] rce(s) Supporting Document(s) ID Date Data Source [id number] 01/24/2021 09:36:00 AM EDT [address] [address]NGTGCQ HEALTH PROGRESS NOTEPATIENT NAME: YARELI HATCH [facility] HOSPITALAUTUMNGIOVANNY PHYSICIAN: BROOKLYN ONEILL MDAUTHOR: Lana Aquino. DATE: 01/03/21 MR#: [id number] NOTE DATE: 01/24/21 RM#: 308EVALUATION TIME: 951 is a 20-year-old white female.CC/Hx Present Illness"I overdosed"Events Since Last EntryPatient presented as unkempt, disheveled and malodorous today. We discussedMarilu's good behaviors from yesterday and we also discussed boundaries todayin regards to staff and her wastewater treatment plant instructor. Patient became upset whenwe discussed boundaries and [...] breath that was not audible to myself,the wastewater treatment plant instructor or the charge nurse.Mental status exam: Patient [...] nursing staff.Continue to await bed availability at [facility]. Patient currently d enies anymedical/physical complaints.ObjectiveVital SignsVital [...] rce(s) Supporting Document(s) ID Date Data Source [id number] 01/23/2021 09:20:00 AM EDT [address] HEALTH PROGRESS NOTEPATIENT NAME: YARELI HATCH [facility] PHYSICIAN: BROOKLYN ONEILL MDAUTHOR: Gema WHITE,DylanADM. DATE: 01/03/21 MR#: [id number] NOTE DATE: 01/23/21 RM#: 308EVALUATION TIME: 935 [facility]ERT[facility] [id number] is a 20-year-old white female.CC/Hx Present Illness"I overdosed"Events Since Last EntryPresented today as cooperative and pleasant. In the meeting today the chargenurse was present, myself, and her wastewater treatment plant instructor Madelin. We discussedthe events yesterday that led [...] also wrote a letter inputted underneath the wastewater treatment plant instructor'sdoor and inquired about this. This was discussed with her and she was informedthis was a good demonstration of how to use her coping skills. We discussedher behavior plan, how it was going to be developed, and what things she canexpect in it. We continue to discuss life skills. [facility] [...] of care.Continuing to await bed availability at [facility].ObjectiveVital SignsVital Signs-LastResult Date TimeB/P 118/78 01/23 0818Temp [...] behavior intolerableDATE SIGNED: 01/23/21 Electronically SignedTIME SIGNED: 09 DYLAN CABRERA Name Value Range Interpretation Code Description Data Stephanie rce(s) Supporting Document(s) ID Date Data Source [id number] 01/22/2021 11:07:00 AM EDT [facility] [address] HEALTH PROGRESS NOTEPATIENT NAME: YARELI HATCH CATTENGIOVANNY PHYSICIAN: BROOKLYN ONEILL MDAUTHOR: Gema WHITE,Lana. DATE: 01/03/21 MR#: [id number] NOTE DATE: 01/22/21 RM#: 308EVALUATION TIME: 1116 [...] Continue to await for bed availability at [facility].Patient denies any physical and/or medical concerns at [...] rce(s) Supporting Document(s) ID Date Data Source [id number] 01/21/2021 08:25:00 AM EDT [address] HEALTH PROGRESS NOTEPATIENT NAME: YARELI HATCH PHYSICIAN: BROOKLYN ONEILL MDAUTHOR: Gema WHITE,Lana. DATE: 01/03/21 MR#: [id number] NOTE DATE: 01/21/21 RM#: 3RDOVERFLEVALUATION TIME: 1000 [...] to wait for an open bed at [facility] for housing.ObjectiveVital SignsVital Signs-LastResult Date TimeB/P 126/80 [...] rce(s) Supporting Document(s) ID Date Data Source [id number] 01/20/2021 11:20:00 AM EDT [place] [id number] [facility]ALTH PROGRESS NOTEPATIENT NAME: YARELI HATCH PHYSICIAN: BROOKLYN ONEILL MDAUTHOR: Lana Aquino. DATE: 01/03/21 MR#: [id number] NOTE DATE: 01/20/21 RM#: 3RDOVERFLEVALUATION TIME: 1255 [...] would notice. [facility] [...] safety. Continue to await bed availability at [facility] for placement as per [facility] order. Lab work will again be ordered and patient will be encouraged toparticipate in the lab work with education provided as to why the order for labwork. Patient currently denies any physical or medical problems at this time.ObjectiveVital SignsVital Signs-LastResult Date TimePulse Ox 97 07 1100B/P 118/56 01/20 1100Temp 97.5 01/20 1100Pulse [...] behavior intolerableDATE SIGNED: 01/20/21 Electronically SignedTIME SIGNED: 1255 DYLAN CABRERA Name Value Range Interpretation Code Description Data Stephanie rce(s) Supporting Document(s) ID Date Data Source [id number] 01/18/2021 09:57:00 AM EDT [facility] [place] Name Value Range Interpretation Code Description Data Stephanie rce(s) Supporting Document(s) CHOL 182 mg/dL 100-200 [facility] TRIG 118 mg/dL 30-190 [facility] HDL 52 mg/dL 35-80 [facility] LDL DIRECT 111 mg/dL 0-100 [facility] VLDL 19 mg/dL 0-100 [facility] ID Date Data Source [id number] 01/18/2021 09:57:00 AM EDT [facility] Name Value Range Interpretation Code Description Data [facility] rce(s) Supporting Document(s) GLU 113 mg/dL 70-110 [facility] Patients taking Sulfasalazine may have f alsely depressedGlucose levels. Patients taking Sulfapyridine may havefalsely elevated Glucose levels. Patients should be drawnfor Glucose before the initial administration of eitherdrug. BUN 17 mg/dL 7-23 [facility] CRE 0.741 mg/dL 0.500-1.300 [facility] GFR > 60 mL/min [facility] CHLORIDE 107 mmol/L 99-110 [facility] NA 142 mmol/L 136-147 [facility] POTASSIUM 4.4 mmol/L 3.5-5.1 [facility] TCO2 30 mmol/L 20-33 [facility] ANION GAP 9.4 10.0-20.0 L [facility] CA 9.2 mg/dL 8.3-10.7 [facility] ALKALINE PHOS 111 U/L 45-117 [facility] TP 7.3 g/dL 6.0-7.8 [facility] ALB 3.9 g/dL 3.5-5.0 [facility] ESRD Dialysis patient Albumin reference range: 2.9-4.4 g/dL GL 3.4 g/dL 2.3-3.5 [facility] A/G 1.1 1.0-2.5 [facility] T. BILIRUBIN 0.5 mg/dL 0.1-1.1 [facility] The Dimension [place] Total Bilirubin is n ot recommended forpatients undergoing treatment with eltrombopag (Promacta)due to the potential for falsely elevated results. ALTI 57 U/L 6-54 [facility] Patients taking Sulfasalazine and/or Sul fapyridine may havefalsely depressed ALT levels. Patients should be drawn forALT before the initial administration of either drug. AST 31 U/L 6-38 [facility] Patients taking Sulfasalazine and/or Sul fapyridine may havefalsely depressed AST levels. Patients should be drawn forAST before the initial administration of either drug. ID Date Data Source [id number] 01/17/2021 10:24:00 AM EDT [address] PROGRESS NOTEPATIENT NAME: YARELI HATCH PHYSICIAN: BROOKLYN ONEILL MDAUTHOR: Gema WHITE,Lana. DATE: 01/03/21 MR#: [id number] NOTE DATE: 01/17/21 RM#: 3RDOVERFLEVALUATION TIME: 1036 [...] to change to Abilify. After further discussion shakirarily made the choice to stay on her Latuda. She denies having aheadache yesterday. She denies experiencing any ill side effects from herpsychotropic medications and she also denies having any physical complaints.He said she spoke with her intensive case folder yesterday, Eve and theycompleted the enrollment paperwork required the intensive case managementprogram. She also said she spoke with Lorraine Regarding a bed at [facility] andaccording to the director of the TLS [...] rce(s) Supporting Document(s) ID Date Data Source [id number] 01/16/2021 01:40:00 PM EDT [address] HEALTH PROGRESS NOTEPATIENT NAME: YARELI HATCH PHYSICIAN: BROOKLYN ONEILL MDAUTHOR: Lana Aquino. DATE: 01/03/21 MR#: [id number] NOTE DATE: 01/16/21 RM#: 3RDOVERFLEVALUATION TIME: 1413 [...] the meeting. Shortly afterthe meeting she approached Gloria her wastewater treatment plant instructor asking to be put onthe Abilify injection [...] and maintain safety. Await bed availability at [facility] as in accordancewith her AOT. Monitor for [...] rce(s) Supporting Document(s) ID Date Data Source [id number] 01/16/2021 10:03:00 AM EDT [facility] Exam Number: [id number] Reported By: - JEREMIAH PEOPLES MD Signed By: JEREMIAH PEOPLES MD Name Value Range Interpretation Code Description Data Stephanie rce(s) Supporting Document(s) ID Date Data Source [id number] 01/15/2021 11:23:00 AM EDT [facility] [place] [address] HEALTH PROGRESS NOTEPATIENT NAME: YARELI HATCH PHYSICIAN: BROOKLYN ONEILL MDAUTHOR: Lana Aquino. DATE: 01/03/21 MR#: [id number] NOTE DATE: 01/15/21 RM#: 3RDOVERFLEVALUATION TIME: 1136 is a 20-year-old white female.CC/Hx Present Illness"I overdosed"Events Since Last EntryLossohail met with her treatment team today and [...] of suicide and/or urges to harm herself butshe did not provide a verbal response; sat [...] wait for a bed tobecome available at [facility] as per her AOTDATE SIGNED: 01/15/21 Electronically SignedTIME SIGNED: 1136 DYLAN CABRERA Name Value Range Interpretation Code Description Data Stephanie rce(s) Supporting Document(s) ID Date Data Source [id number] 01/14/2021 03:17:00 PM EDT [place] [id number] HEALTH PROGRESS NOTEPATIENT NAME: MAMIEYARELI DWYER PHYSICIAN: BROOKLYN ONEILL MDAUTHOR: Lana Aquino. DATE: 01/03/21 MR#: [id number] NOTE DATE: 01/14/21 RM#: 320EVALUATION TIME: 1523 [...] discharge planningDATE SIGNED: 01/14/21 Electronically SignedTIME SIGNED: 8637 DYLAN CABRERA Name Value Range Interpretation Code Description Data Stephanie rce(s) Supporting Document(s) ID Date Data Source [id number] 01/11/2021 10:27:00 AM EDT [address] [id number] HEALTH PROGRESS NOTEPATIENT NAME: YARELI HATCH CATTENGIOVANNY PHYSICIAN: BROOKLYN ONEILL MDAUTHOR: Alfred SMITH,deedeeClaiborne County Medical CenterPUJA. DATE: 01/03/21 MR#: [id number] NOTE DATE: 01/11/21 RM#: 320EVALUATION TIME: 1038 [...] rce(s) Supporting Document(s) ID Date Data Source [id number] 01/10/2021 11:17:00 AM EDT [address] HEALTH PROGRESS NOTEPATIENT NAME: YARELI HATCH PHYSICIAN: BROOKLYN ONEILL MDAUTHOR: Lana Aquino. DATE: 01/03/21 MR#: [id number] NOTE DATE: 01/10/21 RM#: 320EVALUATION TIME: 1121 [...] rce(s) Supporting Document(s) ID Date Data Source [id number] 01/09/2021 03:23:00 PM EDT [address] [id number] HEALTH PROGRESS NOTEPATIENT NAME: YARELI HATCH PHYSICIAN: BROOKLYN ONEILL MDAUTHOR: Gema WHITE,DylanADM. DATE: 01/03/21 MR#: [id number] NOTE DATE: 01/09/21 RM#: 320EVALUATION TIME: 1527 is a 20-year-old white female.CC/Hx Present Illness"I overdosed"Events Since Last EntryYareli met with treatment team today and she [...] this meeting we talked about this and Maicomilabacilioselena asked if this was correct; for a response she attempted to change thetopic. It was explained to her this was ok and [facility] it was not her fault. As we [...] SIGNED: 01/09/21 Electronically SignedTIME SIGNED: 1527 DYLAN WHITE GEMA Name Value Range Interpretation Code Description Data Stephanie rce(s) Supporting Document(s) ID Date Data Source [id number] 01/09/2021 08:36:00 AM EDT [place], [place] [address]MENTAL HEALTH PROGRESS NOTEPATIENT NAME: YARELI HATCH CATTENGIOVANNY PHYSICIAN: BROOKLYN ONEILL MDAUTHOR: Gema WHITE,Lana. DATE: 01/03/21 MR#: [id number] NOTE DATE: 01/09/21 RM#: 320EVALUATION TIME: 908 [...] in process and awaitingfor bed availability at [facility].Assessment/PlanDiagnosis1. Suicide attemptStatus Acute2. Major depressive disorderStatus Chronic3. Bipolar affective disorderStatus Chronic4. Borderline personality disorderStatus Chronic5. Obesity, morbidStatus ChronicCoordination of care provided with nursing staffRisk/benefits discussed side effectsADDENDUM: Dylan Aquino on 01/09/21 at 0926progress note is for 01/08/2021ATE SIGNED: 01/09/21 Electronically SignedTIME SIGNED: 908 DYLAN CABRERA Name Value Range Interpretation Code Description Data Stephanie rce(s) Supporting Document(s) ID Date Data Source [id number] 01/07/2021 02:35:00 PM EDT [address] HEALTH PROGRESS NOTEPATIENT NAME: MAMIEYARELI PHYSICIAN: BROOKLYN ONEILL MDAUTHOR: Surendra SMITH,P.ADM. DATE: 01/03/21 MR#: [id number] NOTE DATE: 01/07/21 RM#: 320EVALUATION TIME: 1436 is a 20-year-old white female.CC/Hx Present Illness"I overdosed"Events Since Last EntryYareli was seen today along with the wastewater treatment plant instructor, Gloria, and a PAstudent from [employer]. She believes herself to be Romel today. Shestates she is doing well. She expressed her interest in AOT for 6 months. Iinformed the patient that we have talked to Omi Tovar about her interest.Patient states she just want to leave the place and go outside. Patient doesnot have any address to discharge to. She states [facility]. Patient was informed that there are beds [facility] andcecil could be transferred there. She was fixated on her discharge and statedthat she does not want to be hospitalized for longer duration.Yareli continues to be irritable and labile affect. She was not happy withthe Sherriff serving her with the AOT papers. She [...] at 1646DATE SIGNED: 01/10/21 Electronically SignedTIME SIGNED: 1648 BROOKLYN ONEILL MD Name Value Range Interpretation Code Description Data Stephanie rce(s) Supporting Document(s) ID Date Data Source [id number] 01/06/2021 02:26:00 PM EDT [address] HEALTH PROGRESS NOTEPATIENT NAME: YARELI HATCH CATSALVADOR PHYSICIAN: BROOKLYN ONEILL MDAUTHOR: Surendra SMITH,P.ADM. DATE: 01/03/21 MR#: [id number] NOTE DATE: 01/06/21 RM#: 320EVALUATION TIME: 1427 is a 20-year-old white female.CC/Hx Present Illness"I overdosed"Events Since Last EntryYareli was seen today along with the wastewater treatment plant instructor, Gloria. Patientwas brought to the ER by rescue squad due to overdose. [facility] [place], which [facility] She is on waiting [place] for [place] in [place] but isunsure how long will it take. She states she drank a lot of coffee which causedher to be awake whole night and she spent more than 24 hours awake. She gotoverwhelmed and overdosed on Ibuprofen and Prove ntil as she was annoyed by acase restaurant and bar manager who was trying to get her [...] 01/06 0859Resp 18 01/06 0634Current MedicationsMiscellaneous Read GOLY12S NANicotine (Nicorette) 2 MG Q2HPRN PRN POCarbamide [...] plan and housing. We are working with [facility] and other housingagencies such as [facility] for supportive housing options.Portions of this section were scribed by Shell Ariza on 01/10/21 at 1643DATE SIGNED: 01/10/21 Electronically SignedTIME SIGNED: 1648 BROOKLYN ONEILL MD Name Value Range Interpretation Code Description Data Stephanie rce(s) Supporting Document(s) ID Date Data Source [id number] 01/04/2021 09:49:00 AM EDT [address] PSYCHIATRIC ASSESSMENTPATIENT NAME: YARELI HATCH MR#: [id number] PHYSICIAN: AMADA MCLEAN MDAUTHOR: Amada Mclean MD DATE: 01/03/21 RM#: 3RDHistoryIdentificationPatient is a 20-year-old white female who was brought to [facility] ED by rescuesquad.Chief Complaint"I overdosed"Reason for AdmissionPatient overdosed on Ibuprofen and Proventil. Patient is not sure why she didit, but she also states that it may have been a suicidal attempt. Her sleep isok. Appetite is good. She has a hx of impulse control problem. She has beenfeeling hopelese, helpless and depressed at times. She was living at [facility]. Shehas been been asked by the [facility] not to return back with them, so she is homelessat this time.History of Presenting IllnessPatient was brought to ED by rescue squad due to overdose. [facility], which then she was brought to the [facility] building in [facility]. Sheis on the waiting list for TLS in [place] but is unsure on how long it willtake. Patient has a long history of suicidal attempts, and also has hadnumerous inpatient admissions to this facility and to other facilities throughout [facility].Portions of this section were scribed by Medina [...] of Knowledge: awareness of low normal rangeAdditional Otjmq23-boze-oga white female who was cooperative during the [...] rce(s) Supporting Document(s) ID Date Data Source [id number] 01/03/2021 05:30:00 PM EDT [facility] [place] [id number] HEALTH HISTORY AND PHYSICALPATIENT NAME: YARELI HATCH MR#: [id number] PHYSICIAN: AMADA MCLEAN MDAUTHOR: Theresa Melchor DATE: [...] 2000traZODONE (Desyrel*) 50 MG PO QHSReview of SystemsSystems reviewed and negative Constitutional, Integumentary, Eyes, ENT,Respiratory, Cardiovascular, GI, , Musculoskeletal, Mario, Endocrine,Neurology, Psych, Allergy/ImmunologyExamVital SignsVital Signs-24 HRS01/03 1450 1528Temp 98.1 98.1 98.1Pulse 64 64 64Resp 16 16 16B/P 129/73 129/73 129/73B/P MeanPulse Ox 99 99 99O2 DeliveryO2 Flow ZdqbOcY0Ztcqiyce ExaminationGeneral Appearance no acute distress, conversant, face [...] Status flat affect, drowsyData ReviewLaboratory DataRecent Labs-48 hours01/02 1602ChemistrySodium (136 - 147 mmol/L) 144Potassium (3.5 [...] CloudyUrine pH (5.0 - 8.0) 6.0Ur Specific [place] (1.010 - 1.025) 1.033 HUrine Protein (Negative) 2+Urine Ketones (NEGATIVE) TraceUrine Blood (NEGATIVE) NegativeUrine Nitrite (Negative) NegativeUr Bilirubin Confirm (NEGATIVE) NegativeUrine Urobilinogen (0.2 - 1.0 mg/dL) 1.0Urine Leukocytes (Negative) NegativeUrine RBC (NONE SEEN) 0-2 RBCs/HPFUrine WBC (NONE SEEN) 0-2 WBCs/HPFUrine Crystals (NONE SEEN) MODERATE AMORPHOUSUrine Bacteria (NONE SEEN) ModerateUrine Glucose (NEGATIVE) Dpvertaw20/104587ZufuvnwwDZBZZ-59 (CORDELL) (NEGATIVE) NOGLDZRKDepyovypkqqi96/24 1602 URINE,CC: Urine Culture - RESAssessment/PlanDiagnosis/Problem1. Suicide attemptStatus Acute2. Major depressive disorderStatus Chronic3. Bipolar affective disorderStatus Chronic4. Borderline personality disorderStatus Chronic5. Obesity, morbidStatus Demand Inspector nicAdditional NotesWill defer psychiatric problems to our psychiatry teamPatient denies medical issues at present and she has been cleared medically.Resuscitation status Full codePlan discussed with patientCase discussed with nursing staffCopies ToCopies to Family Provider: NO,ONEDATE SIGNED: 01/03/21 Electronically SignedTIME SIGNED: 1802 THERESA MELCHOR Name Value Range Interpretation Code Description Data Stephanie rce(s) Supporting Document(s) ID Date Data Source [id number] 01/03/2021 12:52:00 PM EDT [facility] Name Value Range Interpretation Code Description Data Stephanie rce(s) Supporting Document(s) LCOVID-19, CORDELL NEGATIVE [facility] This lab was ordered by [facility] and reported by [facility]. ID Date Data Source [id number] 01/03/2021 01:43:00 PM EDT [facility] [place] Name Value Range Interpretation Code Description Data Stephanie rce(s) Supporting Document(s) COVID-19, CORDELL NEGATIVE NEGATIVE [facility] Methodology: Isothermal Nucleic Acid Amp lification for [...] Emergency Use Authorization. ID Date Data Source [id number] 01/02/2021 04:50:00 PM EDT [facility] [place] Name Value Range Interpretation Code Description Data [facility] Document(s) PCP VISTA NEG NEGATIVE [facility] MINIMUM LEVEL OF DETECTION IS 25 ng/ml BENZODIAZEPINES NEG NEGATIVE [facility] al MINIMUM LEVEL OF DETECTION IS 200 ng/ml COCAINE VISTA NEG NEGATIVE [facility] MINIMUM LEVEL OF DETECTION IS 300 ng/ml AMPHETAMINES NEG NEGATIVE [facility] al MINIMUM LEVEL OF DETECTION IS 1000 ng/ml BARBITURATES NEG NEGATIVE [facility] al CUTOFF CONCENTRATION IS 200 ng/ml CANNABINOIDS NEG NEGATIVE [facility] al CUTOFF CONCENTRATION IS 50 ng/ml METHADONE VISTA NEG NEGATIVE [facility] al MINIMUM LEVEL OF DETECTION IS 300 ng/ml OPIATE VISTA NEG NEGATIVE [facility] MINIMUM DETECTION LEVEL IS 300 ng/ml ID Date Data Source [id number] 01/02/2021 04:36:00 PM EDT [facility] [place] Urine Bilirubin test must be confirmed w ith Ictotest Method Urine Bilirubin test must be confirmed w ith Ictotest Method Name Value Range Interpretation Code Description Data Stephanie rce(s) Supporting Document(s) URINE COLOR DK YELLOW N [facility] UAPR Cloudy [facility] UGLU Negative NEGATIVE [facility] URINE BILIRUBIN Negative NEGATIVE [facility] UKET Trace NEGATIVE [facility] USG 1.033 1.010-1.025 H [facility] UBLO Negative NEGATIVE [facility] UpH 6.0 5.0-8.0 [facility] UPRO 2+ Negative [facility] UUB 1.0 mg/dL 0.2-1.0 [facility] UNIT Negative Negative [facility] ULEU Negative Negative [facility] ID Date Data Source [id number] 01/02/2021 04:36:00 PM EDT [facility] [place] Urine Bilirubin test must be confirmed w ith Ictotest Method Urine Bilirubin test must be confirmed w ith Ictotest Method Name Value Range Interpretation Code Description Data Stephanie rce(s) Supporting Document(s) URINE RBC 0-2 RBCs/HPF NONE SEEN [facility] URINE WBC 0-2 WBCs/HPF NONE SEEN [facility] URINE BACTERIA Moderate [facility] CULTURE HAS BEEN ADDED TO THIS S PECIMEN URINE EPI. Moderate NONE SEEN [facility] URINE CRYSTAL MODERATE AMORPHOUS NONE SEEN [facility] ID Date Data Source [id number] 01/02/2021 04:00:00 PM EDT [facility] [place] Name Value Range Interpretation Code Description Data Stephanie rce(s) Supporting Document(s) WBC 9.40 x10E3/uL 4.0-10.5 [facility] RBC 4.29 x10E6/uL 4.20-5.40 [facility] Hemoglobin 13.0 g/dL 12.0-16.0 [facility] Hematocrit 38.1 % 37.0-47.0 [facility] MCV 88.8 fL 81.0-99.0 [facility] MCH 30.3 pg 27.0-31.0 [facility] MCHC 34.1 g/dL 32.7-35.6 [facility] RDW 12.0 % 11.5-14.0 [facility] Platelet count 278 x10E3/uL 150-450 N [facility] MPV 9.1 fl 6.9-9.5 [facility] Neutrophils 58.6 % 34-64 [facility] Lymphocytes 32.4 % 25-45 [facility] Monocytes 8.1 % 1.7-10.6 [facility] Eosinophils 0.4 % 0.4-7.0 [facility] Basophils 0.2 % 0.1-2.0 [facility] Imm. Gran. 0.3 % 0.1-2.0 [facility] Abs. Neutro. 5.50 x10E3/uL 1.2-7.6 N [facility] [place] Abs. Lymph. 3.05 x10E3/uL 1.0-3.5 [facility] Abs. Levy. 0.76 x10E3/uL 0.1-1.0 [facility] Abs. Eosin. 0.04 x10E3/uL 0.1-0.7 [facility] Abs. Baso. 0.02 x10E3/uL 0.0-0.1 [facility] Abs. Imm. Gran. 0.03 x10E3/uL 0.0-0.1 N [facility]ital ANRBC% 0 % 0 [facility] ID Date Data Source [id number] 01/02/2021 05:13:00 PM EDT [facility] [place] Name Value Range Interpretation Code Description Data Stephanie rce(s) Supporting Document(s) SALICYLATE < 1.7 mg/dL 0.0-20.0 [facility] ID Date Data Source [id number] 01/02/2021 05:13:00 PM EDT [facility] [place] Name Value Range Interpretation Code Description Data Stephanie rce(s) Supporting Document(s) ACETAMINOPHEN < 2.0 ug/mL 0-30 [facility] ID Date Data Source [id number] 01/02/2021 05:13:00 PM EDT [facility] [place] Name Value Range Interpretation Code Description Data Stephanie rce(s) Supporting Document(s) HCG QUAL SERUM Negative Negative [facility] l ID Date Data Source [id number] 01/02/2021 05:13:00 PM EDT [facility] [place] Name Value Range Interpretation Code Description Data Stephanie rce(s) Supporting Document(s) ETOH NONE DETECTED [facility] NONE DETECTED ID Date Data Source [id number] 01/02/2021 05:13:00 PM EDT [facility] [place] Name Value Range Interpretation Code Description Data Stephanie rce(s) Supporting Document(s) GLU 119 mg/dL 70-110 H [facility] Patients taking Sulfasalazine may have f alsely depressedGlucose levels. Patients taking Sulfapyridine may havefalsely elevated Glucose levels. Patients should be drawnfor Glucose before the initial administration of eitherdrug. BUN 14 mg/dL 7-23 [facility] CRE 0.783 mg/dL 0.500-1.300 [facility] GFR > 60 mL/min [facility] CHLORIDE 109 mmol/L 99-110 [facility] NA 144 mmol/L 136-147 [facility] POTASSIUM 3.6 mmol/L 3.5-5.1 [facility] TCO2 26 mmol/L 20-33 [facility] ANION GAP 12.6 10.0-20.0 [facility] CA 9.2 mg/dL 8.3-10.7 [facility] ALKALINE PHOS 110 U/L 45-117 [facility] TP 7.8 g/dL 6.0-7.8 [facility] ALB 4.0 g/dL 3.5-5.0 [facility] ESRD Dialysis patient Albumin reference range: 2.9-4.4 g/dL GL 3.8 g/dL 2.3-3.5 [facility] A/G 1.1 1.0-2.5 [facility] T. BILIRUBIN 0.3 mg/dL 0.1-1.1 [facility] The [employer]ension [place] Total Bilirubin is n ot recommended forpatients undergoing treatment with eltrombopag (Promacta)due to the potential for falsely elevated results. ALTI 47 U/L 6-54 [facility] Patients taking Sulfasalazine and/or Sul fapyridine may havefalsely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 complaint concern about her ability to maintain safety and possiblesuicidal thoughtsEvents Since Last EntryYareli was seen today along with the wastewater treatment plant instructor, Gloria, and a PAstudent from [employer]. She is doing well. I was informed [...] insists thatI need to refer her to [facility]. But my concern is such things do not work becauseshe ends up coming back here day or 2 later. Will continue to work with OMHregarding her and look for more resources.Portions of t his section were scribed by Shell Ariza on 11/27/20 at 1648DATE SIGNED: 11/27/20 Electronically SignedTIME SIGNED: 1650 BROOKLYN ONEILL MD Name Value Range Interpretation Code Description Data Stephanie rce(s) Supporting Document(s) ID Date Data Source [id number] 11/26/2020 02:11:00 PM EDT [address] HEALTH PROGRESS NOTEPATIENT NAME: YARELI HATCH PHYSICIAN: BROOKLYN ONEILL MDAUTHOR: Surendra SMITH,P.ADM. DATE: 10/31/20 MR#: [id number] NOTE DATE: 11/26/20 RM#: 310EVALUATION TIME: 1411 is 20-year-old female, currently single, past psych historyof bipolar disorder, poor impulse control and borderline personality disorderChief complaint concern about her ability to maintain safety and possiblesuicidal thoughtsEvents Since Last EntryYareli was seen today along with the wastewater treatment plant instructor, Gloria, and a PAstudent from [employer]. She was irritated and angry today. She [...] will be making SPOA ref[facility] other [facility]. Yareli continued to express her anger, [...] We are in pursuit of an appropriate custodial or a safe dischargeoption for her. Ji Ng is coming here tomorrow, to do an intake for afamily assisted for her. Will also consider increasing her Zyprexa.Portions of this section were scribed by Shell Ariza on 11/26/20 at 1503DATE SIGNED: 11/26/20 Electronically SignedTIME SIGNED: 1507 BROOKLYN ONEILL MD Name Value Range Interpretation Code Description Data Stephanie rce(s) Supporting Document(s) ID Date Data Source [id number] 11/25/2020 02:44:00 PM EDT [address] [id number] HEALTH PROGRESS NOTEPATIENT NAME: YARELI HATCH CATTENGIOVANNY PHYSICIAN: BROOKLYN ONEILL MDAUTHOR: Surendra SMITH,P.ADM. DATE: 10/31/20 MR#: [id number] NOTE DATE: 11/25/20 RM#: 310EVALUATION TIME: 1444 is 20-year-old female, currently single, past psych historyof bipolar disorder, poor impulse control and borderline personality disorderChief complaint concern about her ability to maintain safety and possiblesuicidal thoughtsEvents Since Last EntryYareli was seen today along with the wastewater treatment plant instructor, Gloria, and a PAstudent from [employer]. She is doing the same. She does not show anysignificant improvement. Patient was informed that we are applying for [facility] for family care. I was informed by [...] she has a history of being in [facility] in her childhood.Portions of this section were [...] further hospitalization. Gloria is making referral to Parul in multiple [facility] for [place].Portions of this section were scribed by Shell Ariza on 11/25/20 at 1926DATE SIGNED: 11/25/20 Electronically SignedTIME SIGNED: 1934 BROOKLYN ONEILL MD Name Value Range Interpretation Code Description Data Stephanie rce(s) Supporting Document(s) ID Date Data Source [id number] 11/22/2020 10:16:00 AM EDT [address] HEALTH PROGRESS NOTEPATIENT NAME: YARELI HATCH PHYSICIAN: BROOKLYN ONEILL MDAUTHOR: Colleen SMITH,DhruvADM. DATE: 10/31/20 MR#: [id number] NOTE DATE: 11/22/20 RM#: 310EVALUATION TIME: 1018 [...] to go and she might go to [facility] down the road as well.Discussed with the wastewater treatment plant instructor about treatment plan that patient iscurrently being [...] rce(s) Supporting Document(s) ID Date Data Source [id number] 11/21/2020 01:41:00 PM EDT [place] [id number] HEALTH PROGRESS NOTEPATIENT NAME: YARELI HATCH PHYSICIAN: BROOKLYN ONEILL, MDAUTHOR: Surendra SMITH,P.ADM. DATE: 10/31/20 MR#: [id number] NOTE DATE: 11/21/20 RM#: 310EVALUATION TIME: 1356 [...] [facility]. It has been [...] unable to be placed in many neighboring [facility] such [facility] where she went to custodial and then she signed out from thecustodial. Her prognosis remains guarded. She denied suicidal [...] be an appropriate candidate for 24hours supervised custodial. She is not making progress. Her providers are alsoworking on finding a different placement for her. Will increase her Zyprexa andpropranolol.Portions of this section were scribed by Shell Ariza on 11/21/20 at 1357DATE SIGNED: 11/21/20 Electronically SignedTIME SIGNED: 1357 BROOKLYN ONEILL MD Name Value Range Interpretation Code Description Data Stephanie rce(s) Supporting Document(s) ID Date Data Source [id number] 11/20/2020 02:02:00 PM EDT [address] [id number] HEALTH PROGRESS NOTEPATIENT NAME: YARELI HATCH CATTENDING PHYSICIAN: BROOKLYN ONEILL, MDAUTHOR: Surendra SMITH,P.ADM. DATE: 10/31/20 MR#: [id number] NOTE DATE: 11/20/20 RM#: 310EVALUATION TIME: 1403 is 20-year-old female, currently single, past psych historyof bipolar disorder, poor impulse control and borderline personality disorderChief complaint concern about her ability to maintain safety and possiblesuicidal thoughtsEvents Since Last EntryYareli was seen today along with the wastewater treatment plant instructor, Gloria, and a PAstudent from [employer]. Patient states she is very stressed. Sheadmits [...] primary school and then she pursued with [employer] for her high school. She reports she has been tested for low IQ in earlyage.Topic of her placement came up. Patient states [facility]. She stated she has been allowed to [...] Patient states she was kicked out [facility] in [facility]; hence, she does not wish to be [...] at 1529DATE SIGNED: 11/20/20 Electronically SignedTIME SIGNED: 153 BROOKLYN ONEILL MD Name Value Range Interpretation Code Description Data Stephanie rce(s) Supporting Document(s) ID Date Data Source [id number] 11/19/2020 01:53:00 PM EDT [address] HEALTH PROGRESS NOTEPATIENT NAME: YARELI HATCH PHYSICIAN: BROOKLYN ONEILL MDAUTHOR: Surendra SMITH,P.ADM. DATE: 10/31/20 MR#: [id number] NOTE DATE: 11/19/20 RM#: 310EVALUATION TIME: 1354 is 20-year-old female, currently single, past psych historyof bipolar disorder, poor impulse control and borderline personality disorderChief complaint concern about her ability to maintain safety and possiblesuicidal thoughtsEvents Since Last EntryYareli was seen today along with the wastewater treatment plant instructor, Gloria, and a PAstudent from [employer]. Patient expressed her irritation and statedthat she [...] inquireabout the AOT and her placement in [place]. She expressed her irritationrelated to her placement issue. She stated, "you do not have to take care of me". The patient states if somehow, she gets AOT and is placed in [place], itwill still not work. The patient also [...] wait and then to get into a custodial. She has difficultyrealizing the fact it is [...] also has the meeting with state like [facility]. Patientis not happy about it. [...] rce(s) Supporting Document(s) ID Date Data Source [id number] 11/18/2020 02:32:00 PM EDT [place] [id number] HEALTH PROGRESS NOTEPATIENT NAME: YARELI HATCH PHYSICIAN: BROOKLYN ONEILL MDAUTHOR: Surendra SMITH,P.ADM. DATE: 10/31/20 MR#: [id number] NOTE DATE: 11/18/20 RM#: 310EVALUATION TIME: 1432 is 20-year-old female, currently single, past psych historyof bipolar disorder, poor impulse control and borderline personality disorderChief complaint concern about her ability to maintain safety and possiblesuicidal thoughtsEvents Since Last EntryYareli was seen today along with the wastewater treatment plant instructor, Gloria, and a PAstudent from [employer]. She is doing well today. She was [...] angry child she will be send [facility] and not to [facility]. Patient admitsto not having any compassion for [...] has been declined by every agency [facility] opening tostay. I am in the process of working with the AOT coordinator to arrange forgetting the AOT done for her. We really do not have anywhere to send here.Given the fact she was on restraints over the weekend and is on nqh-eo-nrjfrcmdpksflu because she put a pillow over her [...] rce(s) Supporting Document(s) ID Date Data Source [id number] 11/17/2020 11:21:00 PM EDT [address] [id number] NOTE FOLLOW UPPATIENT NAME: YARELI HATCH PHYSICIAN: BROOKLYN ONEILL MDAUTHOR: Dori SMIHT,AlexanderADM. DATE: 10/31/20 MR#: [id number] NOTE DATE: 11/17/20 RM#: 310EVALUATION TIME: 2324 [...] rce(s) Supporting Document(s) ID Date Data Source [id number] 11/15/2020 02:15:00 PM EDT [address] [address]MWCMDS HEALTH PROGRESS NOTEPATIENT NAME: YARELI HATCH PHYSICIAN: BROOKLYN ONEILL MDAUTHOR: Surendra SMITH,P.ADM. DATE: 10/31/20 MR#: [id number] NOTE DATE: 11/15/20 RM#: 310EVALUATION TIME: 1416 is 20-year-old female, currently single, past psych historyof bipolar disorder, poor impulse control and borderline personality disorderChief complaint concern about her ability to maintain safety and possiblesuicidal thoughtsEvents Since Last EntryYareli was seen today along with the wastewater treatment plant instructor, and a PA studentfr[employer]. She is in a better mood today. [...] treatment plan. we are awaiting information from [facility] for placement effortsPortions of this section were scribed by Shell Ariza on 11/15/20 at 1415DATE SIGNED: 11/15/20 Electronically SignedTIME SIGNED: 141 BROOKLYN ONEILL MD Name Value Range Interpretation Code Description Data Stephanie rce(s) Supporting Document(s) ID Date Data Source [id number] 11/14/2020 07:41:00 PM EDT [address] HEALTH PROGRESS NOTEPATIENT NAME: YARELI HATCH PHYSICIAN: BROOKLYN ONEILL MDAUTHOR: Surendra SMITH,P.ADM. DATE: 10/31/20 MR#: [id number] NOTE DATE: 11/14/20 RM#: 310EVALUATION TIME: 1948 is 20-year-old female, currently single, past psych historyof bipolar disorder, poor impulse control and borderline personality disorderChief complaint concern about her ability to maintain safety and possiblesuicidal thoughtsEvents Since Last EntryYareli was seen today with wastewater treatment plant instructor Cata and a PA student. Sheseems to be in better mood today without any hostility or irritableness. Sheasked the same question, what is happening to her AOT. We advised her that theAOT is being pursued and Lorraine is checking with [facility] and she will get back tous. Ever since Zyprexa has been added her mood has improved. She wants to gothe community residence in [place]. The problem remains the uncertainty aboutwhen the bed will become available and whether she can go through the AOTprocess. She seems to be satisfied with the answer.Portions of this section were scribed by Shell Ariza on 11/14/20 at 1941ObjectiveVital SignsVital Signs-LastResult Date TimeB/P 121/81 11/14 1849Pulse [...] pursue AOT as well as with [facility].Portions of this section were scribed by Shell Ariza on 11/14/20 at 1941DATE SIGNED: 11/14/20 Electronically SignedTIME SIGNED: 1948 BROOKLYN ONEILL MD Name Value Range Interpretation Code Description Data Stephanie rce(s) Supporting Document(s) ID Date Data Source [id number] 11/13/2020 04:22:00 PM EDT [place], [place] [address]MENTAL HEALTH PROGRESS NOTEPATIENT NAME: YARELI HATCH [facility] PHYSICIAN: BROOKYLN ONEILL MDAUTHOR: Surendra SMITH,P.ADM. DATE: 10/31/20 MR#: [id number] NOTE DATE: 11/13/20 RM#: 310EVALUATION TIME: 1624 is 20-year-old female, currently single, past psych historyof bipolar disorder, poor impulse control and borderline personality disorderChief complaint concern about her ability to maintain safety and possiblesuicidal thoughtsEvents Since Last EntryYareli was seen today with the wastewater treatment plant instructor. She continues to notshow any insight. For [...] an opening in a community residence in [place]. Her Thorazinehas been changed to 300 mg [...] rce(s) Supporting Document(s) ID Date Data Source [id number] 11/12/2020 08:02:00 PM EDT [address] [address]IYXCNS HEALTH PROGRESS NOTEPATIENT NAME: YARELI HATCH CATTENDING PHYSICIAN: BROOKLYN ONEILL MDAUTHOR: Surendra SMITH,P.ADM. DATE: 10/31/20 MR#: [id number] NOTE DATE: 11/12/20 RM#: 310EVALUATION TIME: 2007 [...] her intention to people whenever they address Ardenayla and that she needs to tell them [...] for her. [facility] [place]. Will also work on her coping skill building.Portions of this section were scribed by Shell Ariza on 11/12/20 at 2002DATE SIGNED: 11/12/20 Electronically SignedTIME SIGNED: 2008 BROOKLYN ONEILL MD Name Value Range Interpretation Code Description Data Stephanie rce(s) Supporting Document(s) ID Date Data Source [id number] 11/12/2020 04:37:00 PM EDT [facility] [place] [address] FOLLOW UPPATIENT NAME: YARELI HATCH CATSALVADOR PHYSICIAN: BROOKLYN ONEILL MDAUTHOR: Jacque Chowdhury. DATE: 10/31/20 MR#: [id number] NOTE DATE: 11/12/20 RM#: 310EVALUATION TIME: 1640 : 00Progress Note Follow UpSummaryWas asked to [...] order this.DATE SIGNED: 11/12/20 Electronically SignedTIME SIGNED: 1641 THERESA SPANGLER Name Value Range Interpretation Code Description Data Stephanie rce(s) Supporting Document(s) ID Date Data Source [id number] 11/11/2020 07:43:00 AM EDT [facility] [place] Exam Number: [id number] Reported By: Maria De Jesus KIM M.D. Signed By: Rakan KIM M.D. Name Value Range Interpretation Code Description Data Stephanie rce(s) Supporting Document(s) ID Date Data Source [id number] 11/10/2020 11:20:00 AM EDT [place] [id number] HEALTH PROGRESS NOTEPATIENT NAME: MAMIEYARELI YA PHYSICIAN: BROOKLYN ONEILL MDAUTHOR: Colleen SMITH,DhruvADM. DATE: 10/31/20 MR#: [id number] NOTE DATE: 11/10/20 RM#: 310EVALUATION TIME: 1121 [...] rce(s) Supporting Document(s) ID Date Data Source [id number] 11/09/2020 11:20:00 AM EDT [address] HEALTH PROGRESS NOTEPATIENT NAME: YARELI HATCH PHYSICIAN: BROOKLYN ONEILL MDAUTHOR: Colleen SMITH,DhruvADM. DATE: 10/31/20 MR#: [id number] NOTE DATE: 11/09/20 RM#: 310EVALUATION TIME: 1121 [...] 98 11/09 1102B/P 112/68 11/09 1102Temp 97.3 11/09 1102Pulse 119 11/09 1102Resp 16 11/09 1102Current [...] rce(s) Supporting Document(s) ID Date Data Source [id number] 11/08/2020 01:30:00 PM EDT [facility] HEALTH PROGRESS NOTEPATIENT NAME: YARELI HATCH CATTENGIOVANNY PHYSICIAN: BROOKLYN ONEILL MDAUTHOR: Surendra SMITH,P.ADM. DATE: 10/31/20 MR#: [id number] NOTE DATE: 11/08/20 RM#: 310EVALUATION TIME: 1334 Since Last EntryYareli was seen today along with the wastewater treatment plant instructor, Gloria, and a PAstudent from [employer]. She apologized for not coming to the [...] and not thinkingcompletely. Lorraine was discussing with [facility] about further treatment options forher [...] rce(s) Supporting Document(s) ID Date Data Source [id number] 11/07/2020 03:12:00 PM EDT [place] [id number] HEALTH PROGRESS NOTEPATIENT NAME: YARELI HATCH CATSALVADOR PHYSICIAN: BROOKLYN ONEILL MDAUTHOR: Surendra SMITH,P.ADM. DATE: 10/31/20 MR#: [id number] NOTE DATE: 11/07/20 RM#: 310EVALUATION TIME: 1512 [...] rce(s) Supporting Document(s) ID Date Data Source [id number] 11/06/2020 01:30:00 PM EDT [address] HEALTH PROGRESS NOTEPATIENT NAME: [facility] PH[facility]IAN: BROOKLYN ONEILL MDAUTHOR: Surendra SMITH,P.ADM. DATE: 10/31/20 MR#: [id number] NOTE DATE: 11/06/20 RM#: 310EVALUATION TIME: 1330 Since Last EntryYareli was seen today along with the wastewater treatment plant instructor, Gloria, and a PAstudent from [employer]. She continues to be depressed. She is inbetter mood today. She was cooperative durin g the session. She answered all myquestions. Patient states she is forced to talk. She states she is barely ableto manage herself. When I child and family counselor Yareli talk about her life and [...] rce(s) Supporting Document(s) ID Date Data Source [id number] 11/05/2020 03:44:00 PM EDT [address] HEALTH PROGRESS NOTEPATIENT NAME: YARELI HATCH CATTENDING PHYSICIAN: BROOKLYN ONEILL MDAUTHOR: Surendra SMITH,P.ADM. DATE: 10/31/20 MR#: [id number] NOTE DATE: 11/05/20 RM#: 310EVALUATION TIME: 1546 Since Last EntryYareli was seen today along with the wastewater treatment plant instructor, Gloria, and a PAstudent from [employer]. She continues to be depressed. She has [...] options such as AOT. We talked to Gudelia who did not think she will meet [...] rce(s) Supporting Document(s) ID Date Data Source [id number] 11/04/2020 09:38:00 AM EDT [facility] [place] [id number] NAME: YARELI HATCH#: [id number] PHYSICIAN: BROOKLYN ONEILL MD ADM. DATE: 10/31/20PROGRESS NOTE DATE: 11/04/20 .#: 310ACCOUNT #: [id number] NOTEIDENTIFICATION: A 20-year-old female with schizoaffective disorder.VITAL SIGNS: Temperature of 97, pulse of 101, respirations 19, blood uejmxarf790/79.SUBJECTIVE: The patient came to the interview room. [...] Dictated: 11/04/2020 09:20:11Date Transcribed: 11/04/2020 08:38:16JV/PUSJob #: [id number]: 11/04/20 0920 Electronically SignedTRANS:11/04/20 0938 FILI CANELA MDTRANS BY:IATDATE SIGNED:11/04/20REPORT COPY TO: Name Value Range Interpretation Code Description Data Stephanie rce(s) Supporting Document(s) ID Date Data Source [id number] 11/03/2020 11:54:00 AM EDT [facility] [address]WVKWJIO NAME: YARELI HATCH#: [id number] PHYSICIAN: BROOKLYN ONEILL MD ADM. DATE: 10/31/20PROGRESS NOTE DATE: 11/03/20 .#: 310ACCOUNT #: [id number] NOTEIDENTIFICATION: A 20-year-old female with schizoaffective disorder.VITAL [...] self mutilation.Date Dictated: 11/03/2020 09:56:45Date Transcribed: 11/03/2020 10:54:25JV/PUSDelfino #: [id number]: 11/03/20 0956 Electronically SignedTRANS:11/03/20 1154 FILI CANELA MDTRANS BY:KIERRA SIGNED:11/04/20REPORT COPY TO: Name Value Range Interpretation Code Description Data Stephanie rce(s) Supporting Document(s) ID Date Data Source [id number] 11/01/2020 10:43:00 AM EDT [place] [id number] NAME: MAMIEYARELI#: [id number] PHYSICIAN: BROOKLYN ONEILL MD ADM. DATE: 10/31/20ACCOUNT #: [id number] .#: [id number] ASSESSMENTIDENTIFICATION: A 20-year-old female with long history of schizoaffectivedisorder, cluster B personality disorder.CHIEF COMPLAINT: "I am suicidal."REASON FOR ADMISSION: Suicidal ideation.HISTORY OF PRESENT ILLNESS: According to the records and our interview, thepatient was discharged from our service 2 days ago, she was discharged ybuysl20:00 in the morning. She was back in [...] She is living with a friendhere [place]. The patient stated that she is a [...] tomorrow with differentbeta kimberlyn.Date Dictated: 11/01/2020 10:19:56Date Sherrie ranscribed: 11/01/2020 09:43:52JV/PUSRuchib #: [id number]: 11/01/20 1019 Electronically SignedTRANS:11/01/20 1043 FILI CANELA MDTRANS BY:KIERRA SIGNED:11/02/20REPORT COPY TO: Name Value Range Interpretation Code Description Data Stephanie rce(s) Supporting Document(s) ID Date Data Source [id number] 10/31/2020 07:04:00 PM EDT [address] [address]NOQRYGK AND PHYSICALPATIENT NAME: YARELI HATCH MR#: [id number] PHYSICIAN: BOGDAN ALMAGUER MDAUTHOR: Theresa Chowdhury DATE: [...] 17; Temp 98.3; Pulse Ox 96% ; en1Euvgxfsa ExaminationGeneral Appearance no acute distress, afebrile, alertHead [...] VTE? NoDATE SIGNED: 10/31/20 Electronically SignedTIME SIGNED: 1906 THERESA SPANGLER Name Value Range Interpretation Code Description Data Stephanie rce(s) Supporting Document(s) ID Date Data Source [id number] 10/29/2020 10:26:00 PM EDT [facility] Name Value Range Interpretation Code Description Data Stephanie rce(s) Supporting Document(s) COVID-19, CORDELL NEGATIVE NEGATIVE N [facility] Methodology: Isothermal Nucleic Acid Amp [...] Emergency Use Authorization. ID Date Data Source [id number] 10/29/2020 09:38:25 PM EDT [facility] Name Value Range Interpretation Code Description Data Stephanie rce(s) Supporting Document(s) Progress Note [facility] [id number] [facility] [file] [id number]= ID Date Data Source [id number] 10/29/2020 06:37:00 PM EDT [facility] [place] Name Value Range Interpretation Code Description Data Stephanie rce(s) Supporting Document(s) SALICYLATE < 1.7 mg/dL 0.0-20.0 [facility] ID Date Data Source [id number] 10/29/2020 06:37:00 PM EDT [facility] [place] Name Value Range Interpretation Code Description Data Stephanie rce(s) Supporting Document(s) ACETAMINOPHEN > 2.0 ug/mL 0-30 [facility] Date Data Source [id number] 10/29/2020 06:37:00 PM EDT [facility] [place] Name Value Range Interpretation Code Description Data Stephanie rce(s) Supporting Document(s) HCG QUAL SERUM Negative Negative N [facility] ID Date Data Source [id number] 10/29/2020 06:37:00 PM EDT [facility] [place] Name Value Range Interpretation Code Description Data Stephanie rce(s) Supporting Document(s) ETOH 0.000 g/dL N[facility]ECTED [facility] N[facility]ECT[facility] ID Date Data Source [id number] 10/29/2020 06:37:00 PM EDT [facility] [place] Name Value Range Interpretation Code Description Data Stephanie rce(s) Supporting Document(s) GLU 109 mg/dL 70-110 [facility] Patients taking Sulfasalazine may have f alsely depressedGlucose levels. Patients taking Sulfapyridine may havefalsely elevated Glucose levels. Patients should be drawnfor Glucose before the initial administration of eitherdrug. BUN 17 mg/dL 7-23 [facility] CRE 0.658 mg/dL 0.500-1.300 [facility] GFR > 60 mL/min [facility] CHLORIDE 111 mmol/L 99-110 H [facility] NA 142 mmol/L 136-147 [facility] POTASSIUM 4.1 mmol/L 3.5-5.1 [facility] TCO2 26 mmol/L 20-33 [facility] ANION GAP 9.1 10.0-20.0 [facility] [facility] CA 8.9 mg/dL 8.3-10.7 [facility] ALKALINE PHOS 121 U/L 45-117 [facility] TP 7.5 g/dL 6.0-7.8 [facility] ALB 3.8 g/dL 3.5-5.0 [facility] ESRD Dialysis patient Albumin reference range: 2.9-4.4 g/dL GL 3.7 g/dL 2.3-3.5 [facility] A/G 1.0 1.0-2.5 [facility] T. BILIRUBIN 0.2 mg/dL 0.1-1.1 [facility] The Dimension [place] Total Bilirubin is n ot recommended forpatients undergoing treatment with eltrombopag (Promacta)due to the potential for falsely elevated results. ALTI 49 U/L 6-54 [facility] Patients taking Sulfasalazine and/or Sul fapyridine may havefalsely depressed ALT levels. Patients should be drawn forALT before the initial administration of either drug. AST 26 U/L 6-38 [facility] Patients taking Sulfasalazine and/or Sul fapyridine may havefalsely depressed AST levels. Patients should be drawn forAST before the initial administration of either drug. ID Date Data Source [id number] 10/29/2020 05:54:00 PM EDT [facility] Name Value Range Interpretation Code Description Data Stephanie rce(s) Supporting Document(s) WBC 7.63 x10E3/uL 4.0-10.5 [facility] RBC 4.24 x10E6/uL 4.20-5.40 [facility] Hemoglobin 12.8 g/dL 12.0-16.0 [facility] Hematocrit 37.6 % 37.0-47.0 [facility] MCV 88.7 fL 81.0-99.0 [facility] MCH 30.2 pg 27.0-31.0 [facility] MCHC 34.0 g/dL 32.7-35.6 [facility] RDW 12.3 % 11.5-14.0 [facility] Platelet count 211 x10E3/uL 150-450 [facility] ital MPV 9.6 fl 6.9-9.5 H [facility] Neutrophils 57.8 % 34-64 [facility] Lymphocytes 32.9 % 25-45 N [facility] Monocytes 7.2 % 1.7-10.6 [facility] Eosinophils 1.6 % 0.4-7.0 [facility] Basophils 0.1 % 0.1-2.0 [facility] Imm. Gran. 0.4 % 0.1-2.0 [facility] Abs. Neutro. 4.41 x10E3/uL 1.2-7.6 [facility] Abs. Lymph. 2.51 x10E3/uL 1.0-3.5 [facility] al Abs. Levy. 0.55 x10E3/uL 0.1-1.0 N [facility] l Abs. Eosin. 0.12 x10E3/uL 0.1-0.7 N [facility] al Abs. Baso. 0.01 x10E3/uL 0.0-0.1 N [facility] l Abs. Imm. Gran. 0.03 x10E3/uL 0.0-0.1 [facility] spital ANRBC% 0 % 0 [facility] ID Date Data Source [id number] 10/29/2020 06:28:00 PM EDT [facility] Name Value Range Interpretation Code Description Data Stephanie rce(s) Supporting Document(s) PCP VISTA NEG NEGATIVE [facility] MINIMUM LEVEL OF DETECTION IS 25 ng/ml BENZODIAZEPINES NEG NEGATIVE [facility] al MINIMUM LEVEL OF DETECTION IS 200 ng/ml COCAINE VISTA NEG NEGATIVE [facility] MINIMUM LEVEL OF DETECTION IS 300 ng/ml AMPHETAMINES NEG NEGATIVE [facility] al MINIMUM LEVEL OF DETECTION IS 1000 ng/ml BARBITURATES [facility]G NEGATIVE [facility] CUTOFF CONCENTRATION IS 200 ng/ml CANNABINOIDS NEG NEGATIVE [facility] al CUTOFF CONCENTRATION IS 50 ng/ml METHADONE VISTA NEG NEGATIVE [facility] al MINIMUM LEVEL OF DETECTION IS 300 ng/ml OPIATE VISTA NEG NEGATIVE [facility] MINIMUM DETECTION LEVEL IS 300 ng/ml ID Date Data Source [id number] 10/29/2020 05:57:00 PM EDT [facility] Name Value Range Interpretation Code Description Data Stephanie rce(s) Supporting Document(s) URINE COLOR Yellow [facility] UAPR Turbid [facility] UGLU Negative NEGATIVE [facility] URINE BILIRUBIN Negative NEGATIVE [facility] al UKET Negative NEGATIVE [facility] USG 1.024 1.010-1.025 [facility] UBLO Negative NEGATIVE [facility] UpH 7.0 5.0-8.0 [facility] UPRO Negative Negative [facility] UUB 1.0 mg/dL 0.2-1.0 [facility] UNIT Negative Negative [facility] ULEU Negative Negative [facility] ID Date Data Source [id number] 10/31/2020 10:31:00 AM EDT [facility] Physician DocumentationJoe-Cristina Hinkle edical CenterName: Yareli DuvallAge: 20 yrsSex: FemaleDOB: 2000MRN: [id number] Date: 10/29/2020Time: 17:31Account#: [id number] MD:ED Physician Richie العليposition Summary:10/31/20 08:52Hospitalization OrderedHospitalization Status: Inpatient Admission seProvider: Colleen, Bogdan seLocation: Mental Health Unit seCondition: Stable seProblem: an acute exacerbation seSymptoms: have worsened seRoom Assignment: seDiagnosis- Major depressive disorder, recurrent, unspecified seAdditional Information- Admission Type: Inpatient Status. seForms:- Medication Reconciliation se- SBAR se- Medication Reconciliation Form - 2nd Copy seHPI:10/2018:29 This 20 yrs old White Female presents to ER via [facility] ib7fpma complaints of Psych Problem.19:29 Patient comes the ER today for mental health evaluation. Patient was ud3svkm in the ER for mental health on [...] Smoking status: Patient states was never smoker ofSafetyWeb. ETOH status Denies use of ETOH.- Advance [...] vitals klpMDM:10/2018:22 Patient medically screened. th422:27 ECG:. 4044:46 ED course: Patient exhibiting self-injurious behavior in the ER not xq1fsyjigcuyc to verbal de-escalation requiring chemical sedation. Averbal order was given for B-52 while I was busy with another issue.When I went to put the order in the computer, Haldol allergy poppedup however the medication was already given by the nurse. Patientclosely monitored for any evidence of allergic reaction..06:46 Data reviewed: vital signs, nurses notes, lab test result(s). ED cv6gagtfi: Care is endorsed to Dr. العلي at [...] continued to note aggressive behavior and started dq4yvvuhu verbal threats to staff including threatening to elope andhurt members of staff. After initial mechanical restraints wereremained as the patient did not improve, she regressed to this pointof concerned so the restraints were once again required. Roman Tinajero 20 mg by IM this time with better effect, seen restingcomfortably on most recent assessment.10/2016:35 Order name: Acetaminophen Level; Complete Time: 19:28 :35 Order name: CBC with diff; Complete Time: :28 :35 Order name: CMP; Complete Time: 19:28 :35 Order name: ETOH; Complete Time: 19:28 :35 Order name: Salicylate Level; Complete Time: 19:28 :35 Order name: Serum HCG Qualitative; Complete Time: 19:28 :35 Order name: Triage - Drug Screen; Complete Time: 19:28 :35 Order name: UA; Complete Time: 19:28 :02 Order name: EKG in Patient's Room :26 Order name: COVID-19 PROF; Complete Time: 04:41RDIU14:35 Order name: Diet - Mental Health Tray (call dietary); Complete Time: tl:35 Order name: Belongings List; Complete Time: 09:37 :35 Order name: Document Weight and Height for BMI; Complete Time: 09:37 :35 Order name: Mental Health Level 3; Complete Time: 09:37 :35 Order name: VS q shift; Complete Time: 21:08 :29 Order name: Medically Cleared for Eval by-Psychosocial, Sub Prior th4(.JAN); Complete Time: :02 Order name: EKG.; Complete Time: 22:08 :24 Order name: Mental Health Level 4; Complete Time: 09:2 9 :54 Order name: Restrain Patient; Complete Time: 21:54 uc6Lpgbmephs Medications:10/2018:54 Drug: Seroquel - QUEtiapine 25 mg [quetiapine 25 mg tablet (1 tabs)] iz2Tluah: PO;22:08 Follow up: Response: No adverse reaction tp:38 Drug: B52 IM - (LORazepam 2 mg, diphenhydrAMINE 50 mg, Haloperidol wp3Gezeqmw 5 mg) Route: IM; Site: right vastus [...] diphenhydrAMINE 50 mg [diphenhydramine 50 mg/mL injection fy5qqggtdji (1 mL)] {Note: given for severe anxiety.} [...] 20 mg [ziprasidone 20 mg/mL (final concentration) zc2wzuvlgitdduha solution (1 mL)] Route: IM; Site: right [...] Rhythm is regular, Normal Sinus Rhythm. QRS ti4Sssw is Normal. IL interval is normal. QRS interval is normal. QTinterval is normal. No Q waves. T waves are Normal. No ST changesnoted. Clinical impression: Normal ECG. Interpreted by me.Signatures:Dispatcher [employer] Елена Boogie RN RN klpMartin, Tisa, RN RN tlmElliott, Suzanne, MD MD seHowland, Todd, MD MD zl9FswnpFortunato humphrey RN RN ob0SgffvpBreonna Marie RN RN iq0RicfvevAnoop Bowman MD MD dk2DStacy zhou RN ft4Vhklhcsfzir: (The following items were deleted from the chart)10/2110:57 11:56 COVID-19 PROFILE+LAB ordered. AOYNYEBN12/2200:32 00:10 LORazepam 4 mg IM once ordered. dk2 dk2 Name Value Range Interpretation Code Description Data Stephanie rce(s) Supporting Document(s) ID Date Data Source [id number] 10/31/2020 10:31:00 AM EDT [facility] Nurse's NotesClaxNYC [facility] Tootie terName: Yareli DuvallAge: 20 yrsSex: FemaleDOB: 2000MRN: [id number] Date: 10/29/2020Time: 17:31Account#: [id number] FP6Ukjaxis MD:Diagnosis: Major depressive disorder, recurrent, unspecifiedPresentation:10/2016:31 Presenting complaint: Patient states: "suicidal thought with plan and tlmanxiety:". Coronavirus Screening: Have you been diagnosed withCOVID-19 in the past 30 days? no Are [facility] no Flu-like symptoms reported in the last 14 days: no.Have you had close contact with confirmed or suspected COVID-19 case?no Do you live in a setting where a large of amount of people live,such as care home, family care, fci, etc? no. Have you traveledto a location with widespread or ongoing COVID-19 community spread [facility]? no Have you traveled internationally or hadcontact with someone that has traveled and has been ill in the past 3weeks? no Have you received the COVID vaccine? No. CommunicationSpeaks Indian? Yes, is preferred language. Communicable DiseaseScreen: Negative [...] Smoking status: Patient states was never smoker oftobaTapZen. ETOH status Denies use of ETOH.- Advance [...] that the patient found a paper clip mu5hrvtuschbg on a "window"- she would not give it to the sitter- hetook it from her hand. She then got up from her bed and is pacing inhallway. MHW and PSA w/ patient keeping her in her room. She md jessie made aware. PSA and I stripped room and removed allbelongings and looked under bed and mattress to ensure there were nomore items that pt was hiding from us.04:09 Reassessment: Patient appears in no apparent distress at this time. tp204:48 Reassessment: MHW and PSA reported that patient had been "digging and qh7mgwpugnmua herself" and despite constant redirection, MHW had tomanually hold wrists down to prevent her from doing this. She doeshave bilateral superficial scratches to her wrists w/o bleeding. W59qakptnet ordered and given.05:26 Reassessment: policy writer was called back to room by psa- pt was still jd3zetgmkpsvw to dig at herself. She was verbally [...] room due to patient harming self by rj1lenkeveyvu self with her fingernails several attempts made to getpatient to stop, patient asked why she was doing this and she replied"because I'm depressed and anxious" patient offered medication tohelp with her severe anxiety and she accepted MD made aware ofsituation and order recieved..20:39 Reassessment: Patient continues to try to hurt self and report severe de6lnmpxcq MD called to bedside to assess the situation and additionalmedications ordered..21:55 Reassessment: Despite all other interventions patient continues to jw5try to harm self MD notified and order received to place patient intorestraints at this time for safety.22:48 Reassessment: Patient appears in no apparent distress at this time. uw5Nkqzglv released from restraints at 2245, patient reports [...] to leave became aggressive yelling and threatening MDwaselena continually updated on the situation and order [...] Report Not Completed. Intervention: Observation Level 3. bf2Vdvruk health consult is initiated at 20:30. Referral Information:Evaluation referral is generated by the patient himself / herself.The patient was referred for evaluation because expresses suici dalideations with the plan to hang her self or to overdose.20:57 Subjective: The patients chief complaint is Pt presents to the ED as sm8a walk in due to suicidal ideations. Pt was discharged from [facility] three hours before arriving to the ED. [...] inpatient mental health.She has been admitted at [facility], [facility], [facility], and [facility].Pt has a history of Bipolar, Major Depressive, Anxiety. She statesthat she does not take her medications constantly which continuedwhile she was inpatient. Pt reports that she is set up with [facility] forout patient services. She will be seeing [...] reports history of anxiety, Bipolar Disorder, Depression, ws8sxwrvah attempt: multiple by overdose Other: Borderline PersonalityDisorder. Mental Health Admissions: multiple admissions. Last was [facility] 10/26/20 and was discharged today Current Outpatient MentalHealth Services: Therapist / Agency: [facility]. Living Environment:Family / Home Support: poor The patient currently lives with his /her significant other, [facility]. The patient is single. Detox /Rehab Admissions: [...] patient status is not currently needed or bt0xoxyowjmwel. Consultation: Psych MD informed of patient's status at21:00, ED MD notified of patients status at 21:17. Disposition:Medically cleared for disposition by Dr Argueta. Psychiatric Consultis performed by phone with Dr Almaguer The patient is to be transferredto bed available facility. Legal Status: [facility]. Commitment papers arecompleted. DSM-V DX [place] I diagnosis: Depression, Unspecified.Insurance Pre-Certification: Not Required. [facility] Admission Criteria:The patient is experiencing suicidal ideation. [...] referralhospital acceptance. The patient is not a dining service worker or militarydependent. [place] Suicide Severity Rating Scale: Suicidal IdeationRating 5; Intensity of Ideations Rating 25; Suicidal Behavior Rating1.10/2100:37 Narrative Pt was using her sheet and pillow case to wrap around her bq7psus. Blankets and pillow case were removed. Pt [...] left arm. She has been redirected multiple if3ajcpc by PSA and sitter. Security is present. Pt is now currentlywaiting TV with both hands visible.03:58 Narrative Pt is laying down, watching TV. Sitter is present. Safety sm8is maintained.04:43 Narrative Pt started digging at her arm again. PSA and sitter had rn7dmqaoedex to redirect the pt with no success. Nurse and MD was madeaware. B52 was given. Pt has a keisha on her left wrist and a smallermark on her right wrist. Both have been looked at by nurse.19:21 Narrative PSA role handed off to this policy writer at 1900. sm804/2201:04 Narrative Since shift change at 1930 pt has been digging herself, tz6dgtkpqtadsh to leave, yelling and swearing, she has [...] Narrative PSA role handed off to this policy writer at 7:30 AM. kf09:33 Disposition: The patient is admitted to [facility] MHU Patient report is kfgiven to Dylan [...] Observation Level Level 4 Sitter needed. Provider gy3Muqrqezp Nils Argueta MD Charge Nurse notified Breonna Marie Level 4order placed.Vital Signs:10/2016:33 BP 135 / 86; Pulse 100; Resp 18; Temp 98.5; Pulse Ox 97% ; Pain 0/10; tlm23:02 BP 130 / 89; Pulse 86; Resp 17; Temp 98.6; Pulse Ox 94% ; tp/2104:39 BP 134 / 67 (auto/); Pulse 82 [...] armband on for positive identification. Placed in [facility]. Bed in low position. Call light in reach.18:01 No Physician assisted procedures completed. Labs drawn. Collected by tlmlab. Urine collected. Clean catch specimen.19:13 No apparent distress. Psychosocial Sub Prior. tlm19:13 Sitter at bedside. tlm19:22 Nils Argueta MD is Attending Physician. :18 Notified ED physician of other salon receptionist pt vomited would like tlmsomething, new orders [...] Nurse role handed off by Fortunato Mark, RN klp07:08 Елена Hugo, JOSE LUIS is Primary [...] mg [quetiapine 25 mg tablet (1 tabs)] oq1Iqhps: PO;22:08 Follow up: Response: No adverse reaction tp204/2104:38 Drug: B52 IM - (LORazepam 2 mg, diphenhydrAMINE 50 mg, Haloperidol dc3Bdfnsnn 5 mg) Route: IM; Site: right vastus [...] diphenhydrAMINE 50 mg [diphenhydramine 50 mg/mL injection fx4qnrlfmbc (1 mL)] {Note: given for severe anxiety.} [...] 20 mg [ziprasidone 20 mg/mL (final concentration) rn9brubrovltnpji solution (1 mL)] Route: IM; Site: right [...] se10:30 Disposition: Admitted to Psych accompanied by tech, with chart, Other klpand [employer] officers x 210:30 Condition: stable.10:30 Instructed on need for admit.10:30 Discharge Assessment: Patient awake, alert and oriented x 3. Nocognitive and/or functional deficits noted. Patient verbalizedunderstanding of disposition instructions. Patient angry andinitially uncooperative Patient has no functional deficits.10:31 Patient left the ED. klpSignatures:Елена Hugo, RN Magaly Groves, RN Kylie Garces MD MD seDow, Wendy, RN Zakia De Los Santos, RN Zakia Moreno PSA PSA kfHowland, Todd, MD MD jh2UznnpFortunato humphrey RN RN tp2PiopbjBreonna Marie RN JOSE LUIS wongwp6AyavozksUsha Adams8Anoop Bowman MD is7Jinextyoorm: (The following items were deleted from the [...] Patient reports history of anxiety, Bipolar Disorder, cs4Qwuepinnti, suicide attempt: multiple by overdose Mental HealthAdmissions: multiple admissions. [facility] and wasdischarged today Current Outpati ent [...] appears in no apparent distress at this ng9lqec. jw5 Name Value Range Interpretation Code Description Data Stephanie rce(s) Supporting Document(s) ID Date Data Source [id number] 10/28/2020 08:29:00 PM EDT [place], [place] [address]PATIENT NAME: YARELI HATCH#: [id number] PHYSICIAN: BROOKLYN ONEILL MDACCOUNT #: [id number] ADM. DATE: 10/26/20PATIENT : 00 DISCH. DATE: [50}DISCHARGE SUMMARYMHU discharge planNicotine Replacement TherapySmoking Status Never smokerPrescribed at discharge Rx not offered at DCReason not offered not a smokerAlcohol/Drug DisorderAlcohol or Drug Disorder neither disorderPersonal Care InstructionsDischarge Activity: Resume normal activityDi scharge diet: RegulariStopEND ENDDICT: 10/28/202028 Electronically SignedTRANS:10/28/202028 BROOKLYN ONEILL MDTRANS BY:DATE SIGNED:10/28/20TIME SIGNED: 2029REPORT COPY TO: Name Value Range Interpretation Code Description Data Stephanie rce(s) Supporting Document(s) ID Date Data Source [id number] 10/28/2020 06:30:00 PM EDT [place], [place] [address]MENTAL HEALTH PROGRESS NOTEPATIENT NAME: YARELI HATCH PHYSICIAN: BROOKLYN ONEILL MDAUTHOR: Surendra SMITH,P.ADM. DATE: 10/26/20 MR#: [id number] NOTE DATE: 10/28/20 RM#: [id number] TIME: 183 , , female patient.CC/Hx Present IllnessPt states, "I was and I am feeling suicidal since last week". Reports [facility] and they didn't admit her so she came to [facility] with a friend and walked herself to the ED for an evaluation.Events Since Last EntryPatient was seen today to assess her improvement. The patient denies any SI/HI.She talked about her friend in [place] with whom she wants to live withuntil residence in [facility].Portions of this section were scribed by Shell Ariza on 10/28/20 at 1832ObjectiveVital SignsVital Signs-LastResult Date TimePulse Ox 98 10/28 1140B/P 122/83 10/28 1140Temp 97.5 10/28 1140Pulse 65 10/28 1140Resp 14 10/28 1140Current MedicationsMiscellaneous Read EWTK38K NAQuetiapine Fumarate (Seroquel) 25 MG 2000 POChlorpromazine [...] will be discharged tomorrow with services in [place].Portions of this section were scribed by Shell Ariza on 10/28/20 at 1830DATE SIGNED: 10/28/20 Electronically SignedTIME SIGNED: 1831 BROOKLYN ONEILL MD Name Value Range Interpretation Code Description Data Stephanie rce(s) Supporting Document(s) ID Date Data Source [id number] 10/28/2020 05:10:00 PM EDT [address] DISCHARGE SUMMARYPATIENT NAME: YARELI HATCH MR#: [id number] PHYSICIAN: BROOKLYN ONEILL MDAUTHOR: Surendra SMITH,P. DATE: 10/26/20 #: [id number] DATE:NifqzehNncwvfpgcvcllq77-gbpw-flk, , female patient.Chief ComplaintPt states, "I was and I am feeling suicidal since last week". Reports she wentto [facility] last week and they didn't admit her so she came to [place] tosta with a friend and walked herself to the ED for an evaluation.Reason for AdmissionIncreased depression and feeling suicidal. SIB, by scratching forearms with apencil when in-patient at [facility] in Aug.History of Presenting IllnessYareli is friendly, [...] scribed by Shell Ariza on 10/28/20 at 1710Past Psych/Medical HistoryPsychiatric HistoryLong history with diagnosis of bipolar disorder, Schizoaffective disorder, andcluster B personality disorder. The patient has a history of overdosing andhistory of poor impulse control with aggression. The patient has the criteriafor borderline personality.Medical HistoryDeniesDrugs/Alcohol/Tobacco HistoryDeniesHome MedicationsSee Home Med ication ListAllergiesCoded Allergies:haloperidol (From HALDOL) (06/15/20)risperidone (08/04/19)Family HistoryFamily history of mental health and substance use.Social HistoryHas been staying with a friend in [place] that she met while in the MHU.Abuse HistoryAdmits but doesn't discuss today.Legal HistoryCharged for disorderly conduct and harrassement but hasn't been to court yet.This involved staff during a restraint at [facility].Portions of this section were scribed by Shell Ariza on 10/28/20 at 1710[facility] CourseHospital CourseI saw her on Wednesday and then today. She talked about her multiple overdosesand that [facility] did not want to hospitalize her. So, she decided to pick [facility] and showed up to our ER. Subsequently, [...] her. Shestates she has a friend in [place] and then wait until residence in [facility].Portions of this section were scribed by Shell Ariza on 10/28/20 at 1803DATE SIGNED: 10/28/20 Electronically SignedTIME SIGNED: 1808 BROOKLYN ONEILL MD Name Value Range Interpretation Code Description Data Stephanie rce(s) Supporting Document(s) ID Date Data Source [id number] 10/27/2020 10:23:00 AM EDT [place] [address] PSYCHIATRIC ASSESSMENTPATIENT NAME: YARELI HATCH MR#: [id number] PHYSICIAN: BROOKLYN ONEILL MDAUTHOR: Frantz Win DATE: 10/26/20 RM#: [id number]-fzot-kit, , female patient.Chief ComplaintPt states, "I was and I am feeling suicidal since last week". Reports she wentto [facility] last week and they didn't admit her so she came to [place] tosta with a friend and walked herself to the ED for an evaluation.Reason for AdmissionIncreased depression and feeling suicidal. SIB, by scratching forearms with apencil when in-patient at [facility] in Aug.History of Presenting IllnessYareli is friendly, polite and cooperative today. Reports she feels saferwhen she is here in-patient. [facility] She didn't f/u with her out-patient services and didn'tpick up her prescribed meds from the pharmacy. She reports she notices nodifference on or off her medications.Past Psych/Medical HistoryPsychiatric HistorySignificant psych historyMedical HistoryDeniesDrugs/Alcohol/Tobacco HistoryDeniesHome MedicationsSee Home Medication ListAllergiesCoded Allergies:haloperidol (From HALDOL) (06/15/20)risperidone (08/04/19)Family HistoryFamily history of mental health and substance use.Social HistoryHas been staying with a friend in [place] that she met while in the MHU.Abuse HistoryAdmits but doesn't discuss today.Legal HistoryCharged for disorderly conduct and harrassement but hasn't been to court yet.This involved staff during a restraint at [facility].ExamVital SignsVital Signs-LastResult Date TimePulse Ox 100 10/27 [...] (0 - 30 ug/mL) < 2.0 10/26 0723Barbiturate Screen (NEGATIVE) NEG 10/26 0708Phencyclidine Screen (NEGATIVE) NEG 10/26 0708Amphetamines Screen (NEGATIVE) NEG 10/26 0708Benzodiazepines (NEGATIVE) NEG 10/26 0708Cocaine Screen (NEGATIVE) NEG 10/26 07Cannabinoids (NEGATIVE) NEG 10/26 0708Ethyl Alcohol (NONE DETECTED g/dL) 0.004 H 10/26 0723UrinesUrine Color Yellow 10/26 07Urine Appearance Cloudy 10/26 07Urine pH (5.0 - 8.0) 6.0 10/26 07Ur Specific [place] (1.010 - 1.025) 1.027 H 10/26 07Urine Protein (Negative) Negative 10/26 07Urine Ketones (NEGATIVE) Negative 10/26 07Urine Blood (NEGATIVE) Negative 10/26 07Urine Nitrite (Negative) Negative 10/26 07Ur Bilirubin Confirm (NEGATIVE) Negative 10/26 07Urine Urobilinogen (0.2 - 1.0 mg/dL) 0.2 10/26 07Urine Leukocytes (Negative) Negative 10/26 07Urine Glucose (NEGATIVE) Negative 10/26 0708Urine HCG, Qual (Negative) Negative 10/26 07Assessment/PlanDiagnosis1. Major depressive disorderStatus Acute2. Suicide attemptStatus Acute3. Bipolar affective disorder4. Borderline personality disorder5. Suicidal ideationCoordination of care provided with nursing staff, treatment team, social work,physician's, familyRisk/benefits discussed expected therapeutic effe, side effectsJustification for continued stay danger to self/othersDATE SIGNED: 10/27/20 Electronically SignedTIME SIGNED: [facility] FRANTZ GIORDANO Name Value Range Interpretation Code Description Data Stephanie rce(s) Supporting Document(s) ID Date Data Source [id number] 10/26/2020 05:21:00 PM EDT [address] [address]PHZQEME AND PHYSICALPATIENT NAME: YARELI HATCH MR#: [id number] PHYSICIAN: BROOKLYN ONEILL MDAUTHOR: Eliana Ruelas DO DATE: 10/26/20 RM#: 3RDHISTORY & PHYSICAL DATE: 10/26/20 : 00EVALUATION TIME: 1731HistoryChief Complaint/Admit ReasonSuicidal ideationHistory of Presenting IllnessPatient is a 20 years old [facility] According to the [...] headache, numbness.PsychReports: stress, suicidal ideation.ExamVital SignsVital Signs-24 HRS04 04/368933 1245Temp 97.8Pulse 116Resp 22B/P 131/82 134/79B/P MeanPulse Ox 96O2 DeliveryO2 Flow TphpAhG2Rydiomts ExaminationGeneral Appearance no acute distress, afebrile, alert, awake, conversant, facesymmetricalHead atraumatic, normocephalicNeck no swelling, suppleCardiovascular regular rate, no murmur, normal capillary refill, Positive S1and K3Jbftbwtbhuk clear to auscultation, no distress, aerating well, [...] bleeding or surrounding erythemanoted.Data ReviewLaboratory DataRecent Labs-48 hours10/[id number] 8541 0732ChemistrySodium (136 - 147 mmol/L) 143Potassium (3.5 [...] CloudyUrine pH (5.0 - 8.0) 6.0Ur Specific [place] (1.010 - 1.025) 1.027 HUrine Protein (Negative) NegativeUrine Ketones (NEGATIVE) NegativeUrine Blood (NEGATIVE) NegativeUrine Nitrite (Negative) NegativeUr Bilirubin Confirm (NEGATIVE) NegativeUrine Urobilinogen (0.2 - 1.0 mg/dL) 0.2Urine Leukocytes (Negative) NegativeUrine Glucose (NEGATIVE) NegativeUrine HCG, Qual (Negative) Msafowqe06/530674OheaabeoTEFML-55 (CORDELL) (NEGATIVE) NEGATIVEAssessment/PlanDiagnosis/Problem1. Suicidal ideationA&P- Patient is [...] rce(s) Supporting Document(s) ID Date Data Source [id number] 10/26/2020 11:14:00 AM EDT [facility] Name Value Range Interpretation Code Description Data Stephanie rce(s) Supporting Document(s) COVID-19, CORDELL NEGATIVE NEGATIVE [facility] Methodology: Isothermal Nucleic Acid Amp lification for [...] Emergency Use Authorization. ID Date Data Source [id number] 10/26/2020 07:42:00 AM EDT [facility] Name Value Range Interpretation Code Description Data Stephanie rce(s) Supporting Document(s) WBC 8.10 x10E3/uL 4.0-10.5 [facility] RBC 4.37 x10E6/uL 4.20-5.40 [facility] Hemoglobin 13.2 g/dL 12.0-16.0 [facility] Hematocrit 39.2 % 37.0-47.0 [facility] MCV 89.7 fL 81.0-99.0 [facility] MCH 30.2 pg 27.0-31.0 [facility] MCHC 33.7 g/dL 32.7-35.6 [facility] RDW 11.9 % 11.5-14.0 [facility] Platelet count 204 x10E3/uL 150-450 N [facility] ital MPV 9.6 fl 6.9-9.5 H [facility] Neutrophils 67.3 % 34-64 H [facility] Lymphocytes 23.3 % 25-45 L [facility] Monocytes 7.3 % 1.7-10.6 N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 and/or Sul fapyridine may havefalsely depressed AST levels. Patients should be drawn forAST before the initial administration of either drug. ID Date Data Source [id number] 05/05/2020 01:52:00 AM EDT [facility] [place] Name Value Range Interpretation Code Description Data Stephanie rce(s) Supporting Document(s) WBC 8.06 x10E3/uL 4.0-10.5 [facility] RBC 4.09 x10E6/uL 4.20-5.40 [facility] Hemoglobin 11.8 g/dL 12.0-16.0 [facility] Hematocrit 36.6 % 37.0-47.0 [facility] MCV 89.5 fL 81.0-99.0 [facility] MCH 28.9 pg 27.0-31.0 [facility] MCHC 32.2 g/dL 32.7-35.6 [facility] RDW 12.6 % 11.5-14.0 [facility] Platelet count 226 x10E3/uL 150-450 [facility] ital MPV 9.6 fl 6.9-9.5 [facility] Neutrophils 51.7 % 34-64 [facility] Lymphocytes 38.1 % 25-45 [facility] Monocytes 8.4 % 1.7-10.6 [facility] Eosinophils 1.1 % 0.4-7.0 [facility] Basophils 0.2 % 0.1-2.0 [facility] Imm. Gran. 0.5 % 0.1-2.0 [facility] Abs. Neutro. 4.16 x10E3/uL 1.2-7.6 [facility] [place] Abs. Lymph. 3.07 x10E3/uL 1.0-3.5 [facility] Abs. Levy. 0.68 x10E3/uL 0.1-1.0 [facility] Abs. Eosin. 0.09 x10E3/uL 0.1-0.7 [facility] Abs. Baso. 0.02 x10E3/uL 0.0-0.1 [facility] Abs. Imm. Gran. 0.04 x10E3/uL 0.0-0.1 [facility] ANRBC% 0 % 0 [facility] ID Date Data Source [id number] 05/05/2020 12:57:00 AM EDT [facility] [address] [id number] NOTE FOLLOW UPPATIENT NAME: YARELI HATCH PHYSICIAN: BOGDAN ALMAGUER MDAUTHOR: Dori SMITH,[facility]. DATE: 02/15/20 MR#: [id number] NOTE DATE: 05/05/20 RM#: [id number] TIME: 0117 [...] and phosphorus.DATE SIGNED: 05/05/20 Electronically SignedTIME SIGNED: 116 NEIL YUSUF MD Name Value Range Interpretation Code Description Data Stephanie rce(s) Supporting Document(s) ID Date Data Source [id number] 05/03/2020 01:24:00 PM EDT [address] HEALTH PROGRESS NOTEPATIENT NAME: YARELI HATCH PHYSICIAN: BOGDAN ALMAGUER MDAUTHOR: Colleen SMITH,DhruvADM. DATE: 02/15/20 MR#: [id number] NOTE DATE: 05/03/20 RM#: [id number] TIME: 1325 [...] rce(s) Supporting Document(s) ID Date Data Source [id number] 05/02/2020 01:53:00 PM EDT [facility] HEALTH PROGRESS NOTEPATIENT NAME: YARELI HATCH PHYSICIAN: BOGDAN ALMAGUER MDAUTHOR: Colleen SMITH,DhruvAPUJA. DATE: 02/15/20 MR#: [id number] NOTE DATE: 05/02/20 RM#: [id number] TIME: 1355 [...] current treatment plan, [facility] as well as increasing further Topamax [...] rce(s) Supporting Document(s) ID Date Data Source [id number] 05/01/2020 01:01:00 PM EDT [address] HEALTH PROGRESS NOTEPATIENT NAME: YARELI HATCH PHYSICIAN: BOGDAN ALMAGUER MDAUTHOR: Colleen SMITH,DhruvADM. DATE: 02/15/20 MR#: [id number] NOTE DATE: 05/01/20 RM#: [id number] TIME: 1303 [...] rce(s) Supporting Document(s) ID Date Data Source [id number] 04/30/2020 01:52:00 PM EDT [place] [id number] HEALTH PROGRESS NOTEPATIENT NAME: YARELI HATCH PHYSICIAN: BOGDAN ALMAGUER MDAUTHOR: Colleen SMITH,DhruvADM. DATE: 02/15/20 MR#: [id number] NOTE DATE: 04/30/20 RM#: [id number] TIME: 1355 [...] rce(s) Supporting Document(s) ID Date Data Source [id number] 04/29/2020 11:16:00 AM EDT [facility] HEALTH PROGRESS NOTEPATIENT NAME: YARELI HATCH [facility] PHYSICIAN: BOGDAN ALMAGUER MDAUTHOR: Colleen SMITH,DhruvADM. DATE: 02/15/20 MR#: [id number] NOTE DATE: 04/29/20 RM#: [id number] TIME: 1120 [...] current safe discharge plan regarding going to [facility] as well.Patient denied having any medication side [...] rce(s) Supporting Document(s) ID Date Data Source [id number] 04/26/2020 01:20:00 PM EDT [address] HEALTH PROGRESS NOTEPATIENT NAME: YARELI HATCH PHYSICIAN: BOGDAN ALMAGUER MDAUTHOR: Colleen SMITH,DhruvADM. DATE: 02/15/20 MR#: [id number] NOTE DATE: 04/26/20 RM#: [id number] TIME: 1323 [...] current treatment plan which we discussed with the [facility] staff regarding patient to be called [facility] at this point as well. Jgo discussed with the patient about maintaining her safety and others andpatient was offered all available options for behavioral contract. Patient waseducated about continuing current medication which patient stated she will andalso working on safe discharge plan.ObjectiveVital SignsVital Signs-LastResult Date TimePulse Ox 100 04/26 1227B/P 146/84 04/26 1227Temp 97.9 04/26 1227Pulse 75 04/26 1227Resp 16 [...] rce(s) Supporting Document(s) ID Date Data Source [id number] 04/25/2020 01:43:00 PM EDT [address] HEALTH PROGRESS NOTEPATIENT NAME: YARELI HATCH PHYSICIAN: BOGDAN ALMAGUER MDAUTHOR: Colleen SMITH,DhruvADM. DATE: 02/15/20 MR#: [id number] NOTE DATE: 04/25/20 RM#: [id number] TIME: 1345 [...] rce(s) Supporting Document(s) ID Date Data Source [id number] 04/24/2020 02:01:00 PM EDT [facility] [address] HEALTH PROGRESS NOTEPATIENT NAME: YARELI HATCHDING PHYSICIAN: BOGDAN ALMAGUER MDAUTHOR: Colleen SMITH,DhruvADM. DATE: 02/15/20 MR#: [id number] NOTE DATE: 04/24/20 RM#: [id number] TIME: 1404 [...] sent areferral to supportive environment such as [facility] and other places as well. Atthe same [...] TimePulse Ox 99 04/24 1140B/P 135/83 04/24 1140Temp 97.3 04/24 1140Pulse 91 04/24 1140Resp 16 [...] rce(s) Supporting Document(s) ID Date Data Source [id number] 04/23/2020 01:23:00 PM EDT [address] PROGRESS NOTEPATIENT NAME: YARELI HATCH PHYSICIAN: BOGDAN ALMAGUER MDAUTHOR: Colleen SMITH,DhruvADM. DATE: 02/15/20 MR#: [id number] NOTE DATE: 04/23/20 RM#: [id number] TIME: 1326 [...] patient later on agreedfor further treatment to [facility] as well. Patient also reporting medicationsworking okay, [...] current treatment plan, discussed with the patientregarding [facility] transfer for further treatment, continuing current medication [...] 04/20 1737Pulse 41 04/20 1737Resp 16 04/20 173Current MedicationsFluoxetine HCl (Prozac) 30 MG DAILY POLoperamide [...] rce(s) Supporting Document(s) ID Date Data Source [id number] 04/22/2020 09:56:00 AM EDT [address] HEALTH PROGRESS NOTEPATIENT NAME: YARELI HATCH PHYSICIAN: BOGDAN ALMAGUER MDAUTHOR: Ana Win. DATE: 02/15/20 MR#: [id number] NOTE DATE: 04/22/20 #: 317EVALUATION TIME: 1008 is 19-year-old female, currently [...] (Clotrimazole) 0 DIRECTED TOPNasal Lubricant ([place]) 0 Q3HPRN PRN NASALExaminationMusculoskeletalGait normalStation normalMental Status [...] rce(s) Supporting Document(s) ID Date Data Source [id number] 04/19/2020 01:13:00 PM EDT [address] HEALTH PROGRESS NOTEPATIENT NAME: YARELI HATCH PHYSICIAN: BOGDAN ALMAGUER, MDAUTHOR: Colleen SMITH,DhruvADM. DATE: 02/15/20 MR#: [id number] NOTE DATE: 04/19/20 RM#: [id number] TIME: 1315 [...] (Clotrimazole) 0 DIRECTED TOPNasal Lubricant ([place]) 0 Q3HPRN PRN NASALExaminationMusculoskeletalGait normalStation normalResultsResults Ordered/ReviewedLab Tests reviewedAssessment/PlanDiagnosis1. Major depressive disorderStatus Acute2. Suicide attemptStatus Acute3. Bipolar affective disorderCoordination of care provided with nursing staff, treatment teamRisk/benefits discussed side effectsDATE SIGNED: 04/19/20 Electronically SignedTIME SIGNED: 1315 BOGDAN ALMAGUER MD Name Value Range Interpretation Code Description Data Stephanie rce(s) Supporting Document(s) ID Date Data Source [id number] 04/18/2020 12:59:00 PM EDT [address] HEALTH PROGRESS NOTEPATIENT NAME: YARELI HATCH PHYSICIAN: BOGDAN ALMAGUER, MDAUTHOR: Colleen SMITH,DhruvAPUJA. DATE: 02/15/20 MR#: [id number] NOTE DATE: 04/18/20 RM#: [id number] TIME: 1301 [...] (Clotrimazole) 0 DIRECTED TOPNasal Lubricant ([place]) 0 Q3HPRN PRN NASALExaminationMusculoskeletalGait normalStation normalResultsLaboratory DataRecent [...] behavior intolerableDATE SIGNED: 04/18/20 Electronically SignedTIME SIGNED: 1301 BOGDAN ALMAGUER MD Name Value Range Interpretation Code Description Data [facility] rce(s) Supporting Document(s) ID Date Data Source [id number] 04/17/2020 07:50:00 PM EDT [facility] [place] Name Value Range Interpretation Code Description Data [facility] rce(s) Supporting Document(s) LIP 60.0 U/L 73-393 [facility] ID Date Data Source [id number] 04/17/2020 07:50:00 PM EDT [facility] [place] Name Value Range Interpretation Code Description Data [facility](s) Supporting Document(s) GLU 113 mg/dL 70-110 [facility] Patients taking Sulfasalazine may have f alsely depressedGlucose levels. Patients taking Sulfapyridine may havefalsely elevated Glucose levels. Patients should be drawnfor Glucose before the initial administration of eitherdrug. BUN 17 mg/dL 7-23 [facility] CRE 0.692 mg/dL 0.500-1.300 [facility] CHLORIDE 109 mmol/L 99-110 [facility] NA 141 mmol/L 136-147 [facility] POTASSIUM 3.9 mmol/L 3.5-5.1 [facility] TCO2 24 mmol/L 20-33 [facility] ANION GAP 11.9 10.0-20.0 [facility] CA 9.1 mg/dL 8.3-10.7 [facility] ALKALINE PHOS 148 U/L 82-169 [facility] TP 8.0 g/dL 6.0-7.8 [facility] ALB 4.3 g/dL 3.5-5.0 [facility] ESRD Dialysis patient Albumin reference range: 2.9-4.4 g/dL GL 3.7 g/dL 2.3-3.5 [facility] A/G 1.2 1.0-2.5 [facility] T. BILIRUBIN 0.3 mg/dL 0.1-1.1 [facility] The [employer] [place] Total Bilirubin is n ot recommended forpatients undergoing treatment with eltrombopag (Promacta)due to the potential for falsely elevated results. ALTI 45 U/L 6-54 [facility] Patients taking Sulfasalazine and/or Sul fapyridine may havefalsely depressed ALT levels. Patients should be drawn forALT before the initial administration of either drug. AST 26 U/L 6-38 [facility] Patients taking Sulfasalazine and/or Sul fapyridine may havefalsely depressed AST levels. Patients should be drawn forAST before the initial administration of either drug. ID Date Data Source [id number] 04/17/2020 07:17:00 PM EDT [facility] Name Value Range Interpretation Code Description Data Stephanie rce(s) Supporting Document(s) HbA1C 4.70 % 3.8-5.6 [facility] Suggested Diagnosis HbA1c% Diabet ic >/= 6.5Prediabetes 5.7%-6.4%Normal < 5.7% ID Date Data Source [id number] 04/17/2020 06:39:00 PM EDT [facility] [place] Name Value Range Interpretation Code Description Data Stephanie rce(s) Supporting Document(s) WBC 6.99 x10E3/uL 4.0-10.5 [facility] RBC 4.51 x10E6/uL 4.20-5.40 [facility] Hemoglobin 13.0 g/dL 12.0-16.0 [facility] Hematocrit 39.4 % 37.0-47.0 [facility] MCV 87.4 fL 81.0-99.0 [facility] MCH 28.8 pg 27.0-31.0 [facility] MCHC 33.0 g/dL 32.7-35.6 [facility] RDW 12.7 % 11.5-14.0 [facility] Platelet count 260 x10E3/uL 150-450 [facility] ital MPV 9.5 fl 6.9-9.5 [facility] Neutrophils 53.5 % 34-64 [facility] Lymphocytes 38.1 % 25-45 [facility] Monocytes 6.9 % 1.7-10.6 [facility] Eosinophils 0.9 % 0.4-7.0 [facility] Basophils 0.3 % 0.1-2.0 [facility] Imm. Gran. 0.3 % 0.1-2.0 N [facility] Abs. Neutro. 3.75 x10E3/uL 1.2-7.6 [facility] [place] Abs. Lymph. 2.66 x10E3/uL 1.0-3.5 [facility] Abs. Levy. 0.48 x10E3/uL 0.1-1.0 [facility] Abs. Eosin. 0.06 x10E3/uL 0.1-0.7 [facility] Abs. Baso. 0.02 x10E3/uL 0.0-0.1 [facility] Abs. Imm. Gran. 0.02 x10E3/uL 0.0-0.1 [facility] spital ANRBC% 0 % 0 [facility] ID Date Data Source [id number] 04/17/2020 05:59:00 PM EDT [place], [place] [address]CONSULT REPORTPATIENT NAME: YARELI HATCH MR#: [id number] PHYSICIAN: ANGELA VELAZQUEZONSULTING PHYSICIAN: Theresa Chowdhury DATE: 02/15/20 RM#: [id number] DATE: 04/17/20 : 00EVALUATION TIME: 1803HistoryReason for consultABD PainRequested byDr. VerónicaiChijustus Complaint/Admit ReasonSuicidial thoughts, anxiety and depressionHistory of [...] judgement, abnormal insight, anxiousData ReviewLaboratory Datapending.ImagingEXAM# TYPE/EXAM [id number] US/U/S COMPLETE UPPER ABDOMENDATE OF EXAMINATION: 04/17/2020 [...] codePlan discussed with patientCase discussed with case folder, nursing staffDATE SIGNED: 04/17/20 Electronically SignedTIME SIGNED: 1806 THERESA SPANGLER Name Value Range Interpretation Code Description Data Stephanie rce(s) Supporting Document(s) ID Date Data Source [id number] 04/17/2020 01:29:00 PM EDT [address] HEALTH PROGRESS NOTEPATIENT NAME: YARELI HATCH PHYSICIAN: BOGDAN ALMAGUER MDAUTHOR: Colleen SMITH,DhdaphnievAPUJA. DATE: 02/15/20 MR#: [id number] NOTE DATE: 04/17/20 RM#: [id number] TIME: 1331 [...] she just wanted to have his number fromLYZER DIAGNOSTICSbook which we discussed with the patient about [...] (Clotrimazole) 0 DIRECTED TOPNasal Lubricant ([place]) 0 Q3HPRN PRN NASALExaminationMusculoskeletalGait normalStation normalResultsResults Ordered/ReviewedLab Tests reviewedAssessment/PlanDiagnosis1. Bipolar disorder, manicCoordination of care provided with nursing staff, treatment teamRisk/benefits discussed side effectsJustification for continued stay danger to self/others, behavior intolerableDATE SIGNED: 04/17/20 Electronically SignedTIME SIGNED: 1330 BOGDAN ALMAGUER MD Name Value Range Interpretation Code Description Data Stephanie rce(s) Supporting Document(s) ID Date Data Source [id number] 04/17/2020 01:00:00 PM EDT [facility] Exam Number: [id number] OF EXAMINATIO N: 04/17/2020 8:00 EDTU/S COMPLETE [...] rce(s) Supporting Document(s) ID Date Data Source [id number] 04/16/2020 01:31:00 PM EDT [facility] [place], [place] [address]KPMTWT HEALTH PROGRESS NOTEPATIENT NAME: YARELI HATCH PHYSICIAN: BOGDAN ALMAGUER MDAUTHOR: Colleen SMITH,DawsonvAPUJA. DATE: 02/15/20 MR#: [id number] NOTE DATE: 04/16/20 RM#: [id number] TIME: 1336 [...] (Clotrimazole) 0 DIRECTED TOPNasal Lubricant ([place]) 0 Q3HPRN PRN NASALIbuprofen (Motrin) 600 MG Q6HPRN PRN POExaminationMusculoskeletalGait normalStation normalResultsResults Ordered/ReviewedLab Tests reviewedAssessment/PlanDiagnosis1. Bipolar disorder, manicCoordination of care provided with nursing staff, treatment teamRisk/benefits discussed side eff ectsJustification for continued stay danger to self/othersDATE SIGNED: 04/16/20 Electronically SignedTIME SIGNED: 1336 BOGDAN ALMAGUER MD Name Value Range Interpretation Code Description Data Stephanie rce(s) Supporting Document(s) ID Date Data Source [id number] 04/15/2020 11:11:00 AM EDT [address] HEALTH PROGRESS NOTEPATIENT NAME: [facility] PH[facility]ICIAN: BOGDAN ALMAGUER MDAUTHOR: Colleen SMITH,DhruvADM. DATE: 02/15/20 MR#: [id number] NOTE DATE: 04/15/20 RM#: [id number] TIME: 1114 [...] (Clotrimazole) 0 DIRECTED TOPNasal Lubricant ([place]) 0 Q3HPRN PRN NASALIbuprofen (Motrin) 600 MG Q6HPRN PRN POExaminationMusculoskeletalGait normalStation normalResultsResults Ordered/ReviewedLab Tests reviewedAssessment/PlanDiagnosis1. Bipolar disorder, manicCoordination of care provided with nursing staff, treatment teamRisk/benefits discussed side effectsDATE SIGNED: 04/15/20 Electronically SignedTIME SIGNED: 1114 BOGDAN ALMAGUER MD Name Value Range Interpretation Code Description Data Stephanie rce(s) Supporting Document(s) ID Date Data Source [id number] 04/14/2020 12:01:00 PM EDT [address] HEALTH PROGRESS NOTEPATIENT NAME: [facility]I [facility]: BOGDAN ALMAGUER MDAUTHOR: Colleen SMITH,DhruvADM. DATE: 02/15/20 MR#: [id number] NOTE DATE: 04/14/20 RM#: [id number] TIME: 1203 [...] (Clotrimazole) 0 DIRECTED TOPNasal Lubricant ([place]) 0 Q3HPRN PRN NASALIbuprofen (Motrin) 600 MG [...] rce(s) Supporting Document(s) ID Date Data Source [id number] 04/12/2020 11:39:00 AM EDT [address] HEALTH PROGRESS NOTEPATIENT NAME: YARELI HATCH PHYSICIAN: BOGDAN ALMAGUER MDAUTHOR: Colleen SMITH,DhruvADM. DATE: 02/15/20 MR#: [id number] NOTE DATE: 04/12/20 RM#: 318EVALUATION TIME: 1141 is 19-year-old female, currently single, lives in a motel,past psych history of bipolar disorderCC/Hx Present IllnessThe patient was referred for evaluation because pt having suicidal ideations.Events Since Last EntryPatient reporting feeling somewhat okay, she stated that at this point shefeels comfortable going back to [facility] as well as, discussed with the patientabout [facility] transfer as well due to ongoing mood [...] (Clotrimazole) 0 DIRECTED TOPNasal Lubricant ([place]) 0 Q3HPRN PRN NASALIbuprofen (Motrin) 600 MG [...] rce(s) Supporting Document(s) ID Date Data Source [id number] 04/11/2020 01:20:00 PM EDT [place] [address] HEALTH PROGRESS NOTEPATIENT NAME: YARELI HATCHDING PHYSICIAN: BOGDAN ALMAGUER MDAUTHOR: Colleen SMITH,DhruvADM. DATE: 02/15/20 MR#: [id number] NOTE DATE: 04/11/20 RM#: 318EVALUATION TIME: 1323 [...] this point [facility]with [facility] due tosignificant ongoing [...] (Clotrimazole) 0 DIRECTED TOPNasal Lubricant ([place]) 0 Q3HPRN PRN NASALIbuprofen (Motrin) 600 MG [...] rce(s) Supporting Document(s) ID Date Data Source [id number] 04/10/2020 01:13:00 PM EDT [address] HEALTH PROGRESS NOTEPATIENT NAME: YARELI HATCH PHYSICIAN: BOGDAN ALMAGUER MDAUTHOR: Colleen SMITH,DawsonvAPUJA. DATE: 02/15/20 MR#: [id number] NOTE DATE: 04/10/20 RM#: 318EVALUATION TIME: 1317 [...] (Clotrimazole) 0 DIRECTED TOPNasal Lubricant ([place]) 0 Q3HPRN PRN NASALIbuprofen (Motrin) 600 MG [...] rce(s) Supporting Document(s) ID Date Data Source [id number] 04/09/2020 01:48:00 PM EDT [address] HEALTH PROGRESS NOTEPATIENT NAME: YARELI HATCH PHYSICIAN: BOGDAN ALMAGUER MDAUTHOR: Colleen SMITH,DhruvADM. DATE: 02/15/20 MR#: [id number] NOTE DATE: 04/09/20 RM#: 318EVALUATION TIME: 1353 is 19-year-old female, currently single, lives in a [facility],past psych history of bipolar disorderCC/Hx Present IllnessThe patient was referred for evaluation because pt having suicidal ideations.Events Since Last EntryPatient was somewhat upset later on expressing that she wanted to stay here andshe does not feel comfortable going to [facility] where she came from as well. Wediscussed [...] sort of [facility] Offered patient all available options which roman bansal seems to be refusingand some of other places patient was not accepted due to prior history as well.At this point [facility] also involved, also planning to add voluntaryhospitalization and [facility] all [facility]. Discussed with the patient about maintaining her safety and controllingher behavior and try to assess her every possible way.ObjectiveVital SignsVital Signs-LastResult Date TimeTemp 96.5 04/09 0745B/P 124/83 04/08 1044Pulse 04/08 1044Resp 18 04/08 1044Pulse Ox 04/07 1500Current MedicationsLoratadine (Claritin) 10 MG DAILY POTopiramate (Topamax) 50 MG BID POPatient Own Medication (PT'S OWN MED) 400 DOSE Q28D IMBenzocaine/Pectin/Carboxymethylcell (Cepastat) 1 JHOAN Q2HPRN PRN POClotrimazole (Clotrimazole) 0 DIRECTED TOPNasal Lubricant ([place]) 0 Q3HPRN PRN NASALIbuprofen (Motrin) 600 MG [...] rce(s) Supporting Document(s) ID Date Data Source [id number] 04/08/2020 03:04:00 PM EDT [address] HEALTH PROGRESS NOTEPATIENT NAME: YARELI HATCH PHYSICIAN: BOGDAN ALMAGUER MDAUTHOR: Colleen SMITH,DhruvADM. DATE: 02/15/20 MR#: [id number] NOTE DATE: 04/08/20 RM#: 318EVALUATION TIME: 1506 [...] (Clotrimazole) 0 DIRECTED TOPNasal Lubricant ([place]) 0 Q3HPRN PRN NASALIbuprofen (Motrin) 600 MG [...] rce(s) Supporting Document(s) ID Date Data Source [id number] 04/05/2020 02:20:00 PM EDT [address] [address] HEALTH PROGRESS NOTEPATIENT NAME: YARELI HATCH CATTENGIOVANNY PHYSICIAN: BOGDAN ALMAGUER MDAUTHOR: Ana Win. DATE: 02/15/20 MR#: [id number] NOTE DATE: 04/05/20 RM#: 318EVALUATION TIME: 1427 [...] (Clotrimazole) 0 DIRECTED TOPNasal Lubricant ([place]) 0 Q3HPRN PRN NASALIbuprofen (Motrin) 600 MG [...] SIGNED: 04/05/20 Electronically SignedTIME SIGNED: 1427 FRANTZ - MAXIMILIAN-C PASQUALE Name Value Range Interpretation Code Description Data Stephanie rce(s) Supporting Document(s) ID Date Data Source [id number] 04/05/2020 01:38:00 PM EDT [place] [address] [address]XGYZTP HEALTH PROGRESS NOTEPATIENT NAME: YARELI HATCH PHYSICIAN: BOGDAN ALMAGUER, MDAUTHOR: Colleen SMITH,Sarahy. DATE: 02/15/20 MR#: [id number] NOTE DATE: 04/05/20 RM#: 318EVALUATION TIME: 1342 [...] (Clotrimazole) 0 DIRECTED TOPNasal Lubricant ([place]) 0 Q3HPRN PRN NASALIbuprofen (Motrin) 600 MG [...] side effectsDATE SIGNED: 04/05/20 Electronically SignedTIME SIGNED: 134 BOGDAN ALMAGUER MD Name Value Range Interpretation Code Description Data Stephanie rce(s) Supporting Document(s) ID Date Data Source [id number] 04/04/2020 01:16:00 PM EDT [address] PROGRESS NOTEPATIENT NAME: YARELI HATCH PHYSICIAN: BOGDAN ALMAGUER MDAUTHOR: Colleen SMITH,DhruvADM. DATE: 02/15/20 MR#: [id number] NOTE DATE: 04/04/20 RM#: 318EVALUATION TIME: 1321 is 19-year-old female, currently single, lives in a motel,past psych history of bipolar disorderCC/Hx Present IllnessThe patient was referred for evaluation because pt having suicidal ideations.Events Since Last EntryPatient reported earlier to the wastewater treatment plant instructor regarding that she haddifficulty with her mood [...] the same time we willconsider to have Abilify Maintena for better compliance and plan to discontinueall [...] (Clotrimazole) 0 DIRECTED TOPNasal Lubricant ([place]) 0 Q3HPRN PRN NASALClonidine (Catapres) 0.1 MG [...] rce(s) Supporting Document(s) ID Date Data Source [id number] 04/04/2020 11:16:00 AM EDT [address] HEALTH PROGRESS NOTEPATIENT NAME: YARELI HATCH PHYSICIAN: BOGDAN ALMAGUER MDAUTHOR: Ana Win. DATE: 02/15/20 MR#: [id number] NOTE DATE: 04/04/20 RM#: 318EVALUATION TIME: 1120 [...] (Clotrimazole) 0 DIRECTED TOPNasal Lubricant ([place]) 0 Q3HPRN PRN NASALClonidine (Catapres) 0.1 MG [...] staff, treatment teamRisk/benefits discussed side effectsADDENDUM: Pasquale YAO-C,Frantz on 04/04/20 at 1120Shortly after seeing Yareli on the day unit, she began yelling for unknownreason. There was a code orange called and we responded on the night unit infront of Yareli's room. She reported feeling angry, was yelling a staff, butwas also smirking. She accepted a prn for aggitation and she began to calm. Wewill meet with her later today if she consents and her behavior is safe andappropriate.DATE SIGNED: 04/04/20 Electronically SignedTIME SIGNED: 1120 FRANTZ - CHRISTOPHER GIORDANO Name Value Range Interpretation Code Description Data Stephanie rce(s) Supporting Document(s) ID Date Data Source [id number] 04/03/2020 01:35:00 PM EDT [address] HEALTH PROGRESS NOTEPATIENT NAME: YARELI HATCH CATSALVADOR PHYSICIAN: BOGDAN ALMAGUER MDAUTHOR: Colleen SMITH,DhruvADM. DATE: 02/15/20 MR#: [id number] NOTE DATE: 04/03/20 RM#: 318EVALUATION TIME: 1338 [...] does not feel comfortable returning back to [facility] wherethere are bunch of drug addicts and [...] (Clotrimazole) 0 DIRECTED TOPNasal Lubricant ([place]) 0 Q3HPRN PRN NASALClonidine (Catapres) 0.1 MG [...] effectsDATE SIGNED: 04/03/20 Electronically SignedTIME SIGNED: 1337 BOGDAN ALMAGUER MD Name Value Range Interpretation Code Description Data Stephanie rce(s) Supporting Document(s) ID Date Data Source [id number] 04/02/2020 11:54:00 AM EDT [place] [address] HEALTH PROGRESS NOTEPATIENT NAME: YARELI HATCH CATTENDING PHYSICIAN: BOGDAN ALMAGUER MDAUTHOR: Ana Win. DATE: 02/15/20 MR#: [id number] NOTE DATE: 04/02/20 RM#: 318EVALUATION TIME: 1638 is 19-year-old female, currently single, lives in [...] side effectsDATE SIGNED: 04/02/20 Electronically SignedTIME SIGNED: 1638 FRANTZ GIORDANO Name Value Range Interpretation Code Description Data Tsephanie rce(s) Supporting Document(s) ID Date Data Source [id number] 04/03/2020 07:41:00 AM EDT [place] [address] [address]OREVZGN NAME: YARELI HATCH Janette Jensen#: [id number] PHYSICIAN: BOGDAN ALMAGUER MD ADM. DATE: 02/15/20PROGRESS NOTE DATE: 04/02/20 .#: 318ACCOUNT #: [id number] NOTEIDENTIFICATION: A 19-year-old female with schizoaffective disorder,borderline personality disorder.VITAL SIGNS: Temperature of 97, pulse of 105, respirations 16, blood kwcdoxri967/83.SUBJECTIVE: The patient came to the interview room. [...] Dictated: 04/02/2020 11:24:04Date Transcribed: 04/03/2020 06:41:37JV/RAVJob #: [id number]: 04/02/20 1124 Electronically SignedTRANS:04/03/20 0741 FILI CANELA MDTRANS BY:TONDAALMA SIGNED:04/03/20REPORT COPY TO: Name Value Range Interpretation Code Description Data Stephanie rce(s) Supporting Document(s) ID Date Data Source [id number] 04/01/2020 02:07:[address] [facility] [place], [place] [address]J[place] HEALTH PROGRESS NOTEPATIENT NAME: YARELI HATCH CATSALVADOR PHYSICIAN: BOGDAN ALMAGUER MDAUTHOR: Ana Win. DATE: 02/15/20 MR#: [id number] NOTE DATE: 04/01/20 RM#: 318EVALUATION TIME: 1410 [...] violated, and that she would notify the erisa attorney because sheis transgender. Yareli disclosed that [...] SIGNED: 04/01/20 Electronically SignedTIME SIGNED: 1409 FRANTZ Maria De Jesus GIORDANO Name Value Range Interpretation Code Description Data Stephanie rce(s) Supporting Document(s) ID Date Data Source [id number] 04/02/2020 03:13:00 AM EDT [address] [address]ARORXMC NAME: MAMIEYARELI Jensen#: [id number] PHYSICIAN: BOGDAN ALMAGUER MD ADM. DATE: 02/15/20PROGRESS NOTE DATE: 04/01/20 .#: 318ACCOUNT #: [id number] NOTEIDENTIFICATION: A 19-year-old female with schizoaffective disorder, [...] Dictated: 04/01/2020 10:44:46Date Transcribed: 04/02/2020 02:13:19JV/GBJob #: [id number]: 04/01/20 1044 Electronically SignedTRANS:04/02/20 0313 FILI CANELA MDTRANS BY:IATDATE SIGNED:04/02/20REPORT COPY TO: Name Value Range Interpretation Code Description Data Stephanie rce(s) Supporting Document(s) ID Date Data Source [id number] 03/29/2020 11:29:00 AM EDT [address] HEALTH PROGRESS NOTEPATIENT NAME: YARELI HATCH PHYSICIAN: BOGDAN ALMAGUER, MDAUTHOR: Colleen SMITH,DhruvADM. DATE: 02/15/20 MR#: [id number] NOTE DATE: 03/29/20 RM#: 318EVALUATION TIME: 1131 is 19-year-old female, currently single, well lives in [facility], past psych history of bipolar disorderCC/Hx [...] safe dischargeplan, currently waiting on supportive environment, [facility] aswell.ObjectiveVital SignsVital Signs-LastResult Date TimeTemp 98.9 03/29 0647Pulse Ox 99 03/28 1100B/P 96/61 03/28 1100Pulse 98 03/28 1100Resp 16 03/28 1100Current MedicationsSertraline HCl (Zoloft) 75 MG DAILY POBenzocaine/Pectin/Carboxymethylcell (Cepastat) 1 JHOAN Q2HPRN PRN POClotrimazole (Clotrimazole) 0 DIRECTED TOPNasal Lubricant ([place]) 0 Q3HPRN PRN NASALClonidine (Catapres) 0.1 MG [...] rce(s) Supporting Document(s) ID Date Data Source [id number] 03/28/2020 12:37:00 PM EDT [address] HEALTH PROGRESS NOTEPATIENT NAME: YARELI HATCH PHYSICIAN: BOGDAN ALMAGUER MDAUTHOR: Colleen SMITH,DhruvADM. DATE: 02/15/20 MR#: [id number] NOTE DATE: 03/28/20 RM#: 318EVALUATION TIME: 1238 is 19-year-old female, currently single, [facility], past psych history of bipolar disorderCC/Hx Present [...] (Clotrimazole) 0 DIRECTED TOPNasal Lubricant ([place]) 0 Q3HPRN PRN NASALClonidine (Catapres) 0.1 MG [...] rce(s) Supporting Document(s) ID Date Data Source [id number] 03/27/2020 01:16:00 PM EDT [place] [address] [address]FLEGBU HEALTH PROGRESS NOTEPATIENT NAME: YARELI HATCH PHYSICIAN: BOGDAN ALMAGUER MDAUTHOR: Colleen SMITH,DhruvADM. DATE: 02/15/20 MR#: [id number] NOTE DATE: 03/27/20 RM#: 318EVALUATION TIME: 1318 is 19-year-old female, currently single, well lives in [facility], past psych history of bipolar disorderCC/Hx [...] Signs-LastResult Date TimeTemp 98.1 03/27 0656B/P 119/72 03/258Pulse 86 03/258Pulse Ox 100 03/25 1200Resp 20 03/25 1200Current MedicationsSertraline HCl (Zoloft) 75 MG DAILY POBenzocaine/Pectin/Carboxymethylcell (Cepastat) 1 JHOAN Q2HPRN PRN POClotrimazole (Clotrimazole) 0 DIRECTED TOPNasal Lubricant ([place]) 0 Q3HPRN PRN NASALClonidine (Catapres) 0.1 MG [...] rce(s) Supporting Document(s) ID Date Data Source [id number] 03/26/2020 02:18:00 PM EDT [facility] PROGRESS NOTEPATIENT NAME: YARELI HATCH PHYSICIAN: BOGDAN ALMAGUER MDAUTHOR: Colleen SMITH,DhruvADM. DATE: 02/15/20 MR#: [id number] NOTE DATE: 03/26/20 RM#: 318EVALUATION TIME: 1419 is 19-year-old female, currently single, well lives in [facility], past psych history of bipolar disorderCC/Hx [...] (Clotrimazole) 0 DIRECTED TOPNasal Lubricant ([place]) 0 Q3HPRN PRN NASALClonidine (Catapres) 0.1 MG [...] rce(s) Supporting Document(s) ID Date Data Source [id number] 03/25/2020 01:50:00 PM EDT [address] HEALTH PROGRESS NOTEPATIENT NAME: YARELI HATCH PHYSICIAN: BOGDAN ALMAGUER MDAUTHOR: Colleen SMITH,DhruvADM. DATE: 02/15/20 MR#: [id number] NOTE DATE: 03/25/20 RM#: 318EVALUATION TIME: 1352 is 19-year-old female, currently single, well lives in [facility], past psych history of bipolar disorderCC/Hx Present IllnessThe patient was referred for evaluation because pt having suicidal ideations.Events Since Last EntryPatient reporting feeling somewhat okay, expressing that she has been feelingfine and she is open to continue taking her medication as well. Still waitingfor safe discharge plan as well, [facility] is involved, denied having any [...] (Clotrimazole) 0 DIRECTED TOPNasal Lubricant ([place]) 0 Q3HPRN PRN NASALClonidine (Catapres) 0.1 MG [...] rce(s) Supporting Document(s) ID Date Data Source [id number] 03/22/2020 01:42:00 PM EDT [facility] [address], [place] [address]QGSRJQ HEALTH PROGRESS NOTEPATIENT NAME: YARELI HATCH PHYSICIAN: BOGDAN ALMAGUER MDAUTHOR: Colleen SMITH,Sarahy. DATE: 02/15/20 MR#: [id number] NOTE DATE: 03/22/20 RM#: 318EVALUATION TIME: 1344 is 19-year-old female, currently single, well lives in [facility], past psych history of bipolar disorderCC/Hx [...] side effectsDATE SIGNED: 03/22/20 Electronically SignedTIME SIGNED: 1343 BOGDAN ALMAGUER MD Name Value Range Interpretation Code Description Data Stephanie rce(s) Supporting Document(s) ID Date Data Source [id number] 03/21/2020 01:39:00 PM EDT [address] HEALTH PROGRESS NOTEPATIENT NAME: YARELI HATCH PHYSICIAN: BOGDAN ALMAGUER MDAUTHOR: Colleen SMITH,DhruvADM. DATE: 02/15/20 MR#: [id number] NOTE DATE: 03/21/20 RM#: 318EVALUATION TIME: 1341 is 19-year-old female, currently single, well lives in [facility], past psych history of bipolar disorderCC/Hx Present IllnessThe patient was referred for evaluation because pt having suicidal ideations.Events Since Last EntryPatient was seen on other side with wastewater treatment plant instructor, patient reportedfeeling okay, but she stated that [...] clonidine medication for underlying impulse control behavior florencio. At this point we are adding only at the nighttime for medication sideeffects such as sedation and drowsiness which we discussed with the patient asosiel. Monitoring for her safety and working on [...] rce(s) Supporting Document(s) ID Date Data Source [id number] 03/20/2020 01:45:00 PM EDT [address] PROGRESS NOTEPATIENT NAME: YARELI HATCH PHYSICIAN: BOGDAN ALMAGUER MDAUTHOR: Colleen SMITH,DhJennyfer. DATE: 02/15/20 MR#: [id number] NOTE DATE: 03/20/20 RM#: 318EVALUATION TIME: 1348 is 19-year-old female, currently single, well lives in [facility], past psych history of bipolar disorderCC/Hx Present IllnessThe patient was referred for evaluation because pt having suicidal ideations.Events Since Last EntryPatient remained irritable, patient also stated that she does not feelcomfortable taking any psychotropic medication. She was also stating that shedoes not feel comfortable returning back to motel or any DSS place or any otherplace [...] rce(s) Supporting Document(s) ID Date Data Source [id number] 03/20/2020 02:30:00 AM EDT [address] [address]LIHVODU NAME: YARELI HATCH#: [id number] PHYSICIAN: BOGDAN ALMAGUER MD ADM. DATE: 02/15/20PROGRESS NOTE DATE: 03/19/20 RM.#: 318ACCOUNT #: [id number] NOTEIDENTIFICATION: A 19-year-old female with schizoaffective disorder.VITAL [...] the medication.Date Dictated: 03/19/2020 10:55:33Date Transcribed: 03/20/2020 01:30:40JV/GBJob #: [id number]: 03/19/20 1055 Electronically SignedTRANS:03/20/20 0230 FILI CANELA MDTRANS BY:KIERRA SIGNED:03/20/20REPORT COPY TO: Name Value Range Interpretation Code Description Data Stephanie rce(s) Supporting Document(s) ID Date Data Source [id number] 03/18/2020 02:02:00 PM EDT [address] HEALTH PROGRESS NOTEPATIENT NAME: YARELI HATCH PHYSICIAN: BOGDAN ALMAGUER MDAUTHOR: Surendra SMITH,P.ADM. DATE: 02/15/20 MR#: [id number] NOTE DATE: 03/18/20 RM#: 318EVALUATION TIME: 1407 is 19-year-old female, currently single, well lives in [facility], past psych history of bipolar disorderCC/Hx Present IllnessThe patient was referred for evaluation because pt having suicidal ideations.Additional notesMickayla was seen today. She appears to be [...] rce(s) Supporting Document(s) ID Date Data Source [id number] 03/15/2020 12:49:00 PM EDT [place] HEALTH PROGRESS NOTEPATIENT NAME: YARELI HATCH PHYSICIAN: BOGDAN ALMAGUER MDAUTHOR: Colleen SMITH,DhruvADM. DATE: 02/15/20 MR#: [id number] NOTE DATE: 03/15/20 RM#: 318EVALUATION TIME: 1250 is 19-year-old female, currently single, well lives in [facility], past psych history of bipolar disorderCC/Hx [...] rce(s) Supporting Document(s) ID Date Data Source [id number] 03/14/2020 01:23:00 PM EDT [address] HEALTH PROGRESS NOTEPATIENT NAME: YARELI HATCH PHYSICIAN: BOGDAN ALMAGUER MDAUTHOR: Colleen SMITH,DhruvADM. DATE: 02/15/20 MR#: [id number] NOTE DATE: 03/14/20 RM#: 318EVALUATION TIME: 1325 is 19-year-old female, currently single, well lives in [facility], past psych history of bipolar disorderCC/Hx [...] 03/13 194B/P 129/77 03/13 1949Pulse 86 03/13 1949Resp 17 03/13 1949Assessment/PlanDiagnosis1. Bipolar disorder, manicCoordination of care provided with nursing staff, treatment teamRisk/benefits discussed side effectsDATE SIGNED: 03/14/20 Electronically SignedTIME SIGNED: 1325 BOGDAN ALMAGUER MD Name Value Range Interpretation Code Description Data Stephanie rce(s) Supporting Document(s) ID Date Data Source [id number] 03/13/2020 01:28:00 PM EDT [address] HEALTH PROGRESS NOTEPATIENT NAME: YARELI HATCH PHYSICIAN: BOGDAN ALMAGUER MDAUTHOR: Colleen SMITH,DhdaphnievAPUJA. DATE: 02/15/20 MR#: [id number] NOTE DATE: 03/13/20 #: [id number] TIME: 1329 is 19-year-old female, currently single, [facility], past psych history of bipolar disorderCC/Hx Present [...] rce(s) Supporting Document(s) ID Date Data Source [id number] 03/12/2020 01:51:00 PM EDT [place] [address] HEALTH PROGRESS NOTEPATIENT NAME: YARELI HATCH PHYSICIAN: BOGDAN ALMAGUER MDAUTHOR: Colleen SMITH,DhruvADM. DATE: 02/15/20 MR#: [id number] NOTE DATE: 03/12/20 RM#: 318EVALUATION TIME: 1356 is 19-year-old female, currently single, well lives in [facility], past psych history of bipolar disorderCC/Hx [...] side effectsDATE SIGNED: 03/12/20 Electronically SignedTIME SIGNED: 5536 BOGDAN ALMAGUER MD Name Value Range Interpretation Code Description Data Stephanie rce(s) Supporting Document(s) Procedure Social History Code Duration Value Status Description Data Source(s ) Alcohol intake 04/05/2021 12:00:00 AM EDT Ex-drinker (finding) comp leted Ex- drinker (finding) [facility] Tobacco use and exposure 04/05/2021 12:00:00 AM EDT Never used co mpleted Never used [facility] Cigarette pack-years 04/05/2021 12:00:00 AM EDT UNK completed [facility] Cigarettes smoked current (pack per day) - Reported 04/05/20 12:00:00 AM EDT UNK completed [facility] Smoking 04/05/2021 12:00:00 AM EDT Current every day smoker co mpleted Current every day smoker [facility] Smoking 03/20/2021 12:00:00 AM EDT Unknown if ever smoked comp leted Unknown if ever smoked [facility] Alcohol intake 03/13/2021 12:00:00 AM EDT Ex-drinker (finding) comp leted Ex- drinker (finding) [facility] Tobacco use and exposure 03/13/2021 12:00:00 AM EDT Never used co mpleted Never used [facility] Cigarettes smoked current (pack per day) - Reported 03/13/20 12:00:00 AM EDT UNK completed [facility] Smoking 03/13/2021 12:00:00 AM EDT Current every day smoker co mpleted Current every day smoker [facility] Alcohol intake 02/21/2021 12:00:00 AM EDT Ex-drinker (finding) comp leted Ex- drinker (finding) [facility] 12/22/2020 12:00:00 AM EDT Cigarette Smoker completed Cig arette Smoker [facility] 12/22/2020 12:00:00 AM EDT Current every day smoker co mpleted Current every day smoker [facility] Smoking 11/13/2020 12:00:00 AM EDT Unknown if ever smoked comp leted Unknown if ever smoked [facility]) Smoking 08/27/2020 12:00:00 AM EST Unknown if ever smoked comp leted Unknown if ever smoked [facility] Smoking 08/23/2020 12:00:00 AM EST Unknown if ever smoked comp leted Unknown if ever smoked [facility] Smoking 06/24/2020 12:00:00 AM EST Unknown if ever smoked comp leted Unknown if ever smoked [facility] ([facility]) Vital Signs ID Date Data Source UNK Name Value Range Interpretation Code Description Data Source(s) Respiratory rate 16 /min 16 /min [facility] Systolic blood pressure 129 mm[Hg] 129 mm[Hg] [facility] Diastolic blood pressure 90 mm[Hg] 90 mm[Hg] [facility] Heart rate 72 /min 72 /min [facility] Oxygen saturation in Arterial blood by Pulse oximetry 95 % 95 % [facility] Body temperature 36.89 Patricia 36.89 Patricia [facility] Body weight 137.077 kg 137.077 kg [facility] Body mass index (BMI) [Ratio] 48.78 kg/m2 48.78 kg/m2 [facility] Body height 167.6 cm 167.6 cm [facility] ID Date Data Source [id number] 05/08/2021 04:22:00 PM EDT [facility] Name Value Range Interpretation Code Description Data Source(s) WEIGHT 104.545 kilos 104.545 [facility] HEIGHT 167.64 centimeters 167.64 centimeter [facility] ID Date Data Source [id number] 05/05/2021 08:15:00 PM EDT [facility] Name Value Range Interpretation Code Description Data Source(s) Weight Measurement Method 8 8 [facility] Weight 3680 3680 [facility] pital Temperature Source 7 7 [facility] Temperature 99.1 99.1 [facility] spital Respiratory Effort 1 1 [facility] Respiratory Rate 18 18 [facility] Pulse Assessment Method 4 4 [facility] Pulse Rate 66 66 [facility] 128/55 128/55 [facility] ID Date Data Source [id number] 05/07/2021 09:44:00 AM EDT [facility] [place] Name Value Range Interpretation Code Description Data Source(s) WEIGHT 104 kilos 104 kilos [facility] al HEIGHT 167.64 centimeters 167.64 centimeter [facility] ID Date Data Source [id number] 05/01/2021 09:46:00 AM EDT [facility] Name Value Range Interpretation Code Description Data Source(s) Weight Measurement Method 8 8 [facility] Weight 3668.492 3668.492 [facility] pital Temperature 98.4 98.4 [facility] spital Respiratory Rate 16 16 [facility] Pulse Assessment Method 4 4 [facility] Pulse Rate 68 68 [facility] pital Height 66 66 [facility] pital Blood Pressure 113/59 113/59 [facility] Weight Measurement Method 8 8 [facility] Weight 3668.492 3668.492 [facility] pital Height 66 66 [facility] pital ID Date Data Source [id number] 05/01/2021 01:52:00 AM EDT [facility] spital Name Value Range Interpretation Code Description Data Source(s) Weight Measurement Method 8 8 [facility] Weight 3679.991 3679.991 [facility] pital Respiratory Effort 1 1 [facility] Respiratory Rate 18 18 [facility] Height 66 66 [facility] pital Weight Measurement Method 8 8 [facility] Weight 3679.991 3679.991 [facility] pital Respiratory Effort 1 1 [facility] Respiratory Rate 18 18 [facility] Height 66 66 [facility] pital ID Date Data Source [id number] 05/07/2021 10:54:00 AM EDT [facility] spital Name Value Range Interpretation Code Description Data Source(s) Weight Measurement Method 8 8 [facility] Weight 3680 3680 [facility] pital Temperature Source 7 7 [facility] Temperature 98.8 98.8 [facility] spital Respiratory Effort 1 1 [facility] Respiratory Rate 18 18 [facility] Pulse Assessment Method 4 4 [facility] 103 [facility] 66 [facility] pital Blood Pressure 162/60 162/60 [facility] ID Date Data Source [id number] 05/02/2021 08:03:00 AM EDT [facility] [place] Name Value Range Interpretation Code Description Data Source(s) WEIGHT 150 kilos 150 kilos [facility] HEIGHT 172.72 centimeters 172.72 centimeter [facility] ID Date Data Source [id number] 05/01/2021 11:21:00 AM EDT [facility] [place] Name Value Range Interpretation Code Description Data Source(s) WEIGHT 136.6 kilos 136.6 kilos [facility] HEIGHT 167.64 centimeters 167.64 centimeter [facility] WEIGHT 303 [facility]ilos 303 [facility] 167.64 centimeters 167.64 centimeter [facility] ID Date Data Source [id number] 04/24/2021 11:09:00 AM EDT [place] [facility] Name Value Range Interpretation Code Description Data Source(s) Weight Measurement Method 8 8 [facility] Weight 3680 3680 [facility] pital Temperature Source 7 7 [facility] Temperature 98.0 98.0 [place] [facility] Respiratory Effort 1 1 [facility] Respiratory Rate 18 18 [facility] Pulse Assessment Method 4 4 [facility] Pulse Rate 88 88 [facility] pital Height 66 66 [facility] pital Blood Pressure 147/57 147/57 [facility] ID Date Data Source [id number] 04/28/2021 04:53:00 PM EDT [place] spital Name Value Range Interpretation Code Description Data Source(s) Weight Measurement Method 8 8 [facility] Weight 3679.074 3679.074 [facility] pital Temperature Source 7 7 [facility] Temperature 98.2 98.2 [facility] Respiratory Effort 1 1 [facility] Respiratory Rate 16 16 [facility] Pulse Assessment Method 4 4 [facility] Pulse Rate 80 80 [facility] pital Height 66 66 [facility] pital Blood Pressure 132/72 132/72 [facility] ID Date Data Source [id number] 04/16/2021 12:24:00 PM EDT [facility] Name Value Range Interpretation Code Description Data Source(s) Weight Measurement Method 8 8 [facility] Weight 3680 3680 [facility] pital Temperature Source 7 7 [facility] Temperature 98.1 98.1 [place] [facility] Respiratory Effort 1 1 [facility] Respiratory Rate 16 16 [facility] Pulse Assessment Method 4 4 [facility] Pulse Rate 98 98 [facility] pital Height 66 66 [facility] Blood Pressure 111/58 111/58 [facility] Weight Measurement Method 8 8 [facility] Weight 3680 3680 [facility] pital Temperature Source 7 7 [facility] Temperature 98.1 98.1 [facility] Respiratory Effort 1 1 [facility] Respiratory Rate 16 16 [facility] Pulse Assessment Method 4 4 [facility] Pulse Rate 98 98 [facility] pital Height 66 66 [facility] pital Blood Pressure 111/58 111/58 [facility] ID Date Data Source [id number] 04/19/2021 01:44:00 AM EDT [facility] [place] Name Value Range Interpretation Code Description Data Source(s) WEIGHT 105 kilos 105 kilos [facility] al HEIGHT 167.64 centimeters 167.64 centimeter [facility] ID Date Data Source [id number] 04/19/2021 01:44:00 AM EDT [facility] [place] Name Value Range Interpretation Code Description Data Source(s) WEIGHT 131 kilos 131 kilos [facility] al HEIGHT 170.18 centimeters 170.18 centimeter [facility] ID Date Data Source [id number] 05/11/2021 06:14:00 PM EDT [place] [facility] Name Value Range Interpretation Code Description Data Source(s) Weight Measurement Method 8 8 [facility] Weight 3520 3520 [facility] pital Temperature Source 7 7 [facility] Temperature 97.4 97.4 [place] [facility] Respiratory Effort 1 1 [facility] Respiratory Rate 18 18 [facility] Pulse Assessment Method 4 4 [facility] Pulse Rate 94 94 [facility] pital Height 66 66 [facility] pital Blood Pressure 136/75 136/75 [facility] Weight Measurement Method 8 8 [facility] Weight 3520 3520 [facility] pital Temperature Source 1 1 [facility] Temperature 98.5 98.5 [facility] spital Respiratory Effort 1 1 [facility] Respiratory Rate 16 16 [facility] Pulse Assessment Method 4 4 [facility] Pulse Rate 86 86 [facility] pital Height 66 66 [facility] pital Blood Pressure 131/98 131/98 [facility] Weight Measurement Method 8 8 [facility] Weight 3520 3520 [facility] pital Temperature Source 1 1 [facility] Temperature 98.5 98.5 [facility] spital Respiratory Effort 1 1 [facility] Respiratory Rate 18 18 [facility] Pulse Assessment Method 4 4 [facility] Pulse Rate 108 108 [facility] pital Height 66 66 [facility] pital Blood Pressure 131/92 131/92 [facility] ID Date Data Source [id number] 05/09/2021 04:32:00 PM EDT [place] spital Name Value Range Interpretation Code Description Data Source(s) Weight Measurement Method 8 8 [facility] Weight 3680 3680 [facility] pital Temperature Source 7 7 [facility] Temperature 99.0 99.0 [facility] spital Respiratory Effort 1 1 [facility] Respiratory Rate 18 18 [facility] Pulse Assessment Method 4 4 [facility] Pulse Rate 102 102 [facility] pital Height 66 66 [facility] pital Blood Pressure 141/79 141/79 [facility] Weight Measurement Method 8 8 [facility] Weight 3680 3680 [facility] pital Temperature Source 7 7 [facility] Temperature 98 98 [facility] spital Respiratory Effort 1 1 [facility] Respiratory Rate 16 16 [facility] Pulse Assessment Method 4 4 [facility] Pulse Rate 122 122 [facility] pital Height 66 66 [facility] pital Blood Pressure 149/85 149/85 [facility] ID Date Data Source [id number] 03/25/2021 07:15:08 AM EDT [facility] Name Value Range Interpretation Code Description Data Source(s) TRANSFER FROM [facility] ID Date Data Source [id number] 05/09/2021 04:49:00 PM EDT [place] [facility] Name Value Range Interpretation Code Description Data Source(s) Weight Measurement Method 8 8 [facility] Weight 3680 3680 [facility] pital Temperature Source 7 7 [facility] Temperature 97.3 97.3 [facility] 18 18 [facility] Pulse Rate 106 106 [facility] Height 66 66 [facility] Blood Pressure 122/83 122/83 [facility] Weight Measurement Method 8 8 [facility] Weight 3680 3680 [facility] pital Temperature Source 7 7 [facility] Temperature 97.3 97.3 [facility] spital Respiratory Rate 18 18 [facility] Pulse Rate 106 106 [facility] pital Height 66 66 [facility] pital Blood Pressure 122/83 122/83 [facility] ID Date Data Source [id number] 05/10/2021 06:49:00 PM EDT [facility] spital Name Value Range Interpretation Code Description Data Source(s) Weight Measurement Method 8 8 [facility] Weight 3680 3680 [facility] pital Temperature Source 7 7 [facility] Temperature 99.8 99.8 [place] [facility] Respiratory Effort 1 1 [facility] Respiratory Rate 18 18 [facility] Pulse Rate 117 117 [facility] pital Height 66 66 [facility] pital Blood Pressure 142/72 142/72 [facility] Weight Measurement Method 8 8 [facility] Weight 3680 3680 [facility] pital Temperature Source 7 7 [facility] Temperature 99.8 99.8 [place] [facility] Respiratory Effort 1 1 [facility] Respiratory Rate 18 18 [facility] Pulse Rate 117 117 [facility] Height 66 66 [facility] pital Blood Pressure 142/72 142/72 [facility] ID Date Data Source [id number] 05/09/2021 02:14:00 PM EDT [facility] spital Name Value Range Interpretation Code Description Data Source(s) Weight Measurement Method 8 8 [facility] Weight 3680 3680 [facility] pital Temperature Source 7 7 [facility] Temperature 97.3 97.3 [facility] spital Respiratory Rate 16 16 [facility] Pulse Assessment Method 4 4 [facility] Pulse Rate 68 68 [facility] pital Height 66 66 [facility] pital Blood Pressure 113/59 113/59 [facility] Weight Measurement Method 8 8 [facility] Weight 3680 3680 [facility] pital Temperature Source 7 7 [facility] Temperature 98.7 98.7 [facility] spital Respiratory Rate 20 20 [facility] Pulse Rate 110 110 [facility] pital Height 66 66 [facility] pital Blood Pressure 135/70 135/70 [facility] ID Date Data Source [id number] 05/10/2021 09:58:00 AM EDT [facility] spital Name Value Range Interpretation Code Description Data Source(s) Weight Measurement Method 8 8 [facility] Weight 3680 3680 [facility] pital Temperature Source 7 7 [facility] Temperature 98.4 98.4 [facility] spital Respiratory Effort 1 1 [facility] Respiratory Rate 16 16 [facility] Pulse Assessment Method 4 4 [facility] Pulse Rate 78 78 [facility] pital Height 66 66 [facility] pital Blood Pressure 129/88 129/88 [facility] Weight Measurement Method 8 8 [facility] Weight 8113.011 8113.011 [facility] pital Temperature Source 7 7 [facility] Temperature 98.4 98.4 [facility] spital Respiratory Effort 1 1 [facility] Respiratory Rate 18 18 [facility] Pulse Assessment Method 4 4 [facility] Pulse Rate 109 109 [facility] pital Height 66 66 [facility] pital Blood Pressure 145/74 145/74 [facility] ID Date Data Source [id number] 02/26/2021 08:59:13 AM EDT [facility] Hospital Name Value Range Interpretation Code Description Data Source(s) TRANSFER FROM [facility] ID Date Data Source [id number] 05/09/2021 08:17:00 PM EDT [facility] Name Value Range Interpretation Code Description Data Source(s) Weight Measurement Method 8 8 [facility] Weight 3680 3680 [facility] pital Temperature Source 7 7 [facility] Temperature 98.3 98.3 [facility] spital Respiratory Effort 1 1 [facility] Respiratory Rate 20 20 [facility] Pulse Assessment Method 4 4 [facility] Pulse Rate 108 108 [facility] pital Height 66 66 [facility] pital Blood Pressure 124/58 124/58 [facility] Weight Measurement Method 8 8 [facility] Weight 3680 3680 [facility] pital Temperature Source 7 7 [facility] Temperature 96.7 96.7 [facility] spital Respiratory Effort 1 1 [facility] Respiratory Rate 18 18 [facility] Pulse Assessment Method 4 4 [facility] Pulse Rate 94 94 [facility] pital Height 66 66 [facility] pital Blood Pressure 126/81 126/81 [facility] Weight Measurement Method 8 8 [facility] Weight 3680 3680 [facility] pital Temperature Source 7 7 [facility] Temperature 96.7 96.7 [facility] spital Respiratory Effort 1 1 [facility] Respiratory Rate 18 18 [facility] Pulse Assessment Method 4 4 [facility] Pulse Rate 94 94 [facility] pital Height 66 66 [facility] pital Blood Pressure 126/81 126/81 [facility] ID Date Data Source [id number] 04/19/2021 01:44:00 AM EDT [facility] [place] Name Value Range Interpretation Code Description Data Source(s) WEIGHT 136.6 kilos 136.6 kilos [facility] HEIGHT 170.18 centimeters 170.18 centimeter s [facility] WEIGHT 137.7 kilos 137.7 kilos [facility] HEIGHT 170.18 centimeters 170.18 centimeter s [facility] WEIGHT 137.2 kilos 137.2 kilos [facility] HEIGHT 170.18 centimeters 170.18 centimeter s [facility] WEIGHT 137.2 kilos 137.2 kilos [facility] HEIGHT 152.4 centimeters 152.4 centimeters [facility] WEIGHT 137.2 kilos 137.2 kilos [facility] HEIGHT 170.18 centimeters 170.18 centimeter s [facility] WEIGHT 134.5 kilos 134.5 kilos [facility] HEIGHT 170.18 centimeters 170.18 centimeter s [facility] ID Date Data Source [id number] 04/19/2021 01:44:00 AM EDT [facility] [place] Name Value Range Interpretation Code Description Data Source(s) WEIGHT 136.3 kilos 136.3 kilos [facility] HEIGHT 152.4 centimeters 152.4 centimeters [facility] WEIGHT 136.3 kilos 136.3 kilos [facility] HEIGHT 170.18 centimeters 170.18 centimeter s [facility] WEIGHT 136.8 kilos 136.8 kilos [facility] HEIGHT 170.18 centimeters 170.18 centimeter s [facility] WEIGHT 131.5 kilos 131.5 kilos [facility] HEIGHT 170.18 centimeters 170.18 centimeter s [facility] WEIGHT 128.8 kilos 128.8 kilos [facility] HEIGHT 170.18 centimeters 170.18 centimeter s [facility] WEIGHT 126.8 kilos 126.8 kilos [facility] HEIGHT 170.18 centimeters 170.18 centimeter s [facility] WEIGHT 124 kilos 124 kilos [facility] HEIGHT 170.18 centimeters 170.18 centimeter [facility] ID Date Data Source [id number] 10/29/2020 09:38:25 PM EDT [facility] Name Value Range Interpretation Code Description Data Source(s) PREFERRED NAME Romel Urena [facility] TRANSFER FROM [facility] ID Date Data Source [id number] 04/19/2021 01:44:00 AM EDT [facility] [place] Name Value Range Interpretation Code Description Data Source(s) WEIGHT 124 kilos 124 kilos [facility] HEIGHT 167.64 centimeters 167.64 centimeter [facility] ID Date Data Source [id number] 07/18/2020 09:56:40 PM [facility] Hospital Name Value Range Interpretation Code Description Data Source(s) PREFERRED NAME Romel Urena [facility] TRANSFER FROM [facility] ID Date Data Source [id number] 04/19/2021 01:43:00 AM EDT [facility] [place] Name Value Range Interpretation Code Description Data Source(s) WEIGHT 122.8 kilos 122.8 kilos [facility] HEIGHT 167.64 centimeters 167.64 centimeter [facility] WEIGHT 100 kilos 100 [facility]ilos [facility] HEIGHT 167.64 centimeters 167.64 centimeter s [facility] ID Date Data Source [id number] 04/19/2021 01:43:00 AM EDT [facility] [place] Name Value Range Interpretation Code Description Data Source(s) WEIGHT 124.2 kilos 124.2 kilos [facility] HEIGHT 167.64 centimeters 167.64 centimeter s [facility] WEIGHT 123.4 kilos 123.4 kilos [facility] HEIGHT 167.64 centimeters 167.64 centimeter s [facility] WEIGHT 123.9 kilos 123.9 kilos [facility] HEIGHT 167.64 centimeters 167.64 centimeter s [facility] WEIGHT 123.9 kilos 123.9 kilos [facility] HEIGHT 152.4 centimeters 152.4 centimeters [facility] WEIGHT 119.6 kilos 119.6 kilos [facility] HEIGHT 167.64 centimeters 167.64 centimeter s [facility] WEIGHT 118.2 kilos 118.2 kilos [facility] HEIGHT 167.64 centimeters 167.64 centimeter s [facility] WEIGHT 112.6 kilos 112.6 kilos [facility] HEIGHT 167.64 centimeters 167.64 centimeter s [facility] WEIGHT 100 kilos 100 kilos [facility] HEIGHT 167.64 centimeters 167.64 centimeter s [facility] ID Date Data Source [id number] 04/19/2021 01:43:00 AM EDT [facility] [place] Name Value Range Interpretation Code Description Data Source(s) WEIGHT 100 kilos 100 kilos [facility] HEIGHT 167.64 centimeters 167.64 centimeter [facility] ID Date Data Source [id number] 04/19/2021 01:43:00 AM EDT [facility] [place] Name Value Range Interpretation Code Description Data Source(s) WEIGHT 110 kilos 110 kilos [facility] HEIGHT 167.64 centimeters 167.64 centimeter [facility] WEIGHT 100 kilos 100 kilos [facility] HEIGHT 167.64 centimeters 167.64 centimeter [facility] ID Date Data Source [id number] 04/19/2021 01:43:00 AM EDT [facility] [place] Name Value Range Interpretation Code Description Data Source(s) WEIGHT 104.4 kilos 104.4 kilos [facility] ital HEIGHT 152.4 centimeters 152.4 centimeters [facility] WEIGHT 100 kilos 100 kilos [facility] HEIGHT 167.64 centimeters 167.64 centimeter [facility] Patient Treatment Plan of Care Planned Activity Planned Date Details Description Data Source (s) Sertraline 50 MG Oral Tablet 04/07/2021 12:00:00 AM [facility] Prazosin 1 MG Oral Capsule 04/05/2021 10:00:00 PM [facility] Ondansetron 4 MG Disintegrating Oral Tablet 04/05/2021 06:25:36 AM [facility] Magnesium Hydroxide 80 MG/ML Oral Suspension 04/05/2021 06:25:35 AM [facility] Aluminum Hydroxide 40 MG/ML / Magnesium Hydroxide 40 MG/ML / Simethicone 4 MG/ML Oral Suspension 04/05/2021 06:25:35 AM EDT [facility] Melatonin 5 MG Oral Tablet 04/05/2021 06:25:23 AM [facility] aripiprazole 10 MG Oral Tablet 03/25/2021 12:00:00 AM [facility] Escitalopram 5 MG Oral Tablet 03/15/2021 12:00:00 AM EDT [facility] Prazosin 2 MG Oral Capsule 03/15/2021 12:00:00 AM [facility] topiramate 25 MG Oral Tablet 02/26/2021 12:00:00 AM [facility] Sertraline 50 MG Oral Tablet 02/26/2021 12:00:00 AM [facility] Loratadine 10 MG Oral Tablet 02/26/2021 12:00:00 AM [facility] Lurasidone Hydrochloride 80 MG Oral Tablet 02/26/2021 12:00:00 AM [facility] topiramate 25 MG Oral Tablet 02/26/2021 12:00:00 AM [facility] Sertraline 50 MG Oral Tablet 02/26/2021 12:00:00 AM [facility] Lurasidone Hydrochloride 80 MG Oral Tablet 02/26/2021 12:00:00 AM [facility] Loratadine 10 MG Oral Tablet 02/26/2021 12:00:00 AM [facility] Propranolol Hydrochloride 10 MG Oral Tablet 02/25/2021 12:00:00 AM [facility] Prazosin 2 MG Oral Capsule 02/25/2021 12:00:00 AM [facility] montelukast 10 MG Oral Tablet 02/25/2021 12:00:00 AM [facility] Trazodone Hydrochloride 50 MG Oral Tablet 02/25/2021 12:00:00 AM [facility] Pravastatin Sodium 20 MG Oral Tablet 02/25/2021 12:00:00 AM [facility] Trazodone Hydrochloride 50 MG Oral Tablet 02/25/2021 12:00:00 AM [facility] Propranolol Hydrochloride 10 MG Oral Tablet 02/25/2021 12:00:00 AM [facility] Prazosin 2 MG Oral Capsule 02/25/2021 12:00:00 AM [facility] Pravastatin Sodium 20 MG Oral Tablet 02/25/2021 12:00:00 AM [facility] montelukast 10 MG Oral Tablet 02/25/2021 12:00:00 AM [facility] chlorproMAZINE (THORAZINE) 50 MG/2ML injection 02/22/2021 05:23:23 PM [facility] diphenhydrAMINE (BENADRYL) 50 MG/ML injection 02/22/2021 05:23:16 P M [facility] Hydroxyzine Hydrochloride 50 MG Oral Tablet 02/21/2021 08:18:25 PM [facility] Magnesium Hydroxide 80 MG/ML Oral Suspension 02/21/2021 08:18:18 PM [facility] 2 ML aripiprazole 200 MG/ML Prefilled Syringe [Abilify ] 06/18/2020 12:00:00 AM [facility] ospital duloxetine 30 MG Delayed Release Oral Capsule 12/28/2019 12:00:00 A M [facility] Sertraline 50 MG Oral Tablet [facility] Propranolol Hydrochloride 10 MG Oral Tablet [facility] Prazosin 1 MG Oral Capsule [facility] Ondansetron 4 MG Oral Tablet [facility] Citalopram 20 MG Oral Tablet [facility]
--- OUTSIDE RECORDS SUMMARY | 2021-05-12 03:08 | CCD ---
Author Author [facility] Address Unknown Phone Unavailable Support Name Relationship Address Phone TULIO HUTCHISON Next Of Kin [address] [facility] [address] [place] [address] LIVING, TRANSITIONAL Next Of Kin [address] [place] [address] Unavailable N, PER PT ONE Next Of Kin [address] [facility] [address], [place] [address] WILMAR LOZA Next Of Kin [address] [place] [address] NO ONE, PATIENT PER Next Of Kin [address] [place] [address] JOAN WOODWARD Next Of Kin Unknown Unavailable Yamileth Aleman Next Of Kin [address] [place] [address] CONTACT, NO Next Of Kin Unknown NO, CONTACT Next Of Kin Unknown U Next Of Kin Unknown Unavailable TLS, RESIDENTS [facility] Next Of Kin [address] [place] [address] Camelia Martinez Next Of Kin [address] [place] [address] UN Next Of Kin Unknown Unavailable none to, list Next Of Kin [address] [facility] [address] [place] [address] ALIZA HATCH Next Of Kin [address] [place] [address] KAREN GODFREY Next Of Kin [address] [place] [address] TL, S Next Of Kin [address] [place] [address] PEPPER TORIBIO Next Of Kin Unknown UE Next Of Kin Unknown Unavailable STEPH PEPPER Next Of Kin [address] [place] [address] S Next Of Kin Unknown Unavailable Mainor HATCH Next Of Kin [address] [place] [address] ST Next Of Kin Unknown Unavailable Jorge HATCH Next Of Kin [address] [place] [address] Care Team Providers Care Jai Alai Player Name Role Phone LaBarge, Zeyad Unavailable SYSTEM [...] Unavailable Unavailable COLLEEN, BOGDAN SMITH Unavailable Unavailable COLLEENBOGDNA MD Unavailable Unavailable COLLEEN, BOGDAN SMITH Unavailable Unavailable Feuga, Santiago Unavailable Feuga, Santiago Unavailable Feuga, Santiago Unavailable Feuga, Santiago Unavailable Sohail GROVER MD Unavailable Unavailable ANSHUL STRAUSS MD Unavailable Unavailable ANSHUL STRAUSS MD Unavailable Unavailable ANSHUL STRAUSS MD Unavailable Unavailable ANSHUL STRAUSS MD Unavailable Unavailable ANSHUL STARUSS MD Unavailable Unavailable ANSHUL STRAUSS MD Unavailable [...] Sohail GROVER MD Unavailable Unavailable Divya Orozco CINDER SNAPPER Unavailable Unavailable Cortney, Vish CINDER SNAPPER Unavailable Cortney, Vish CINDER SNAPPER Unavailable Cortney, Vish CINDER SNAPPER Unavailable Mariam HICKS MD Unavailable Unavailable Mariam [...] Unavailable WILLIAM BRO MD Unavailable Unavailable COLBY, YAZDANISM Unavailable Unavailable BOWMAN, YAZDANISM MD Unavailable Unavailable BOWMAN, YAZDANISM MD Unavailable Unavailable BOWMAN, YAZDANISM MD Unavailable Unavailable BOWMAN, YAZDANISM MD Unavailable Unavailable BOWMAN, YAZDANISM MD Unavailable Unavailable BOWMAN, YAZDANISM MD Unavailable Unavailable BOWMAN, YAZDANISM MD Unavailable Unavailable Pedro Keith Unavailable Pedro [...] K Marky MD Unavailable Unavailable Nicole Kent PMH-CINDER SNAPPER Unavailable Unavailable Nicole Kent PMH-CINDER SNAPPER Unavailable Unavailable Nicole Kent Tammie PMH-CINDER SNAPPER Unavailable Unavailable Nicole Kent PMH-CINDER SNAPPER Unavailable Unavailable Nicole Kent PMH-CINDER SNAPPER Unavailable Unavailable DonteNicole rai PMH-CINDER SNAPPER Unavailable Unavailable Nicole Kent Tammie PMH-CINDER SNAPPER Unavailable Unavailable Nicole Kent Tammie PMH-CINDER SNAPPER Unavailable Unavailable Maria De Jesus CABRERA Unavailable Unavailable NILS ARGUETA MD Unavailable Unavailable Ramiro Argueta MD Unavailable Unavailable Ramiro Argutea MD Unavailable Unavailable Ramiro Argueta MD Unavailable Unavailable Ramiro Argueta MD Unavailable Unavailable Ramiro Argueta MD Unavailable Unavailable Ramiro Argueta MD Unavailable Unavailable Ramiro Argueta MD Unavailable Unavailable Ramiro Argueta MD Unavailable Unavailable Ramiro Argueta MD Unavailable Unavailable Ramiro Argueta MD Unavailable Unavailable Gonzalo HAMEED . Unavailable Unavailable Liliam Negron CINDER SNAPPER Unavailable Unavailable Sohail Muñoz MD Unavailable Unavailable [...] Unavailable Megna, L Deejay PA-C Unavailable Unavailable [place], F Zaki PA Unavailable Unavailable Macario, F Zaki PA Unavailable Unavailable [place], F Zaki PA Unavailable Unavailable Macario, F Zaki PA Unavailable Unavailable Macario, F Zaki PA Unavailable Unavailable Macario, F Zaki PA Unavailable Unavailable [place], F Zaki PA Unavailable Unavailable [place], F Zaki PA Unavailable Unavailable [place], F Zaki PA Unavailable Unavailable [place], F Zaki PA Unavailable Unavailable ZEGIL, D THERESA BOX BLANK MACHINE OPERATOR HELPER Unavailable Unavailable ZEGIL, D THERESA BOX BLANK MACHINE OPERATOR HELPER Unavailable Unavailable ZEGIL, D THERESA BOX BLANK MACHINE OPERATOR HELPER Unavailable Unavailable AL-Silvio, Ramón MD Unavailable Unavailable [...] is protected by Article 27-F of the [facility] Public Health law. If you continue you may have access to information: Regarding HIV / AIDS; Provided by facilities licensed or operated by the [facility] Office of Mental Health; or Provided by the [facility] Office for People With Developmental Disabilities. If such information is present, then the following [facility] mandated warning applies: This information has [...] law may result in a fine or intermediate sentence or both. A general authorization for the release of medical or other information is NOT sufficient authorization for further disc losure. Allergies and Adverse Reactions Type Description Substance Reaction Status Data Source(s ) Drug allergy Drug allergy risperidone Unknown Reaction [facility] Drug allergy Drug allergy haloperidol (From Haldol) Unknown Reaction [facility] Propensity to adverse reactions to substance Risperdal Risperidone 1 MG Oral Tablet [Risperdal] Active [facility] ([facility] Drug allergy risperidone risperidone ADDITIONAL [facility] Drug allergy haloperidol haloperidol ADDITIONAL UNSPECIFIED [facility] SEASONAL ALLERGIES SEASONAL ALLERGIES [facility] ([facility]) No Allergies No Allergies [facility] ([facility]) No allergies to food No allergies to food [facility] ([facility]) NKDA NKDA [facility] ([facility]) Drug allergy haloperidol haloperidol [facility] Family History Family Member Name Family Member Gender Family Member Status Date o f Status Description Data Source(s) Unknown Male Condition Family Member ADD / ADHD S [facility] Encounters Encounter Providers Location Date Indications Data Source(s ) Inpatient Attender: BROOKLYN ONEILL MDAttender: ZEESHAN GROVER MDAdmitter: BROOKLYN ONEILL MD ER-3RD 05/06/2021 02:17:00 PM EDT - 05/08/2021 04:22:00 PM EDT [facility] Patient discharged. Emergency Attender: THERESA BARAHONA [facility] ED-ED 04/12 07:56:00 PM EDT - 05/05/2021 11:21:00 PM EDT suicidal ideation [facility] suicidal ideation Patient discharged. Inpatient Attender: BOGDAN ALMAGUER MDAtten víctor: DYLAN CABRERAAttender: BROOKLYN ONEILL MDAttender: KYLIE العلي MDAdmitter: BROOKLYN ONEILL MD ER-3RD 05/01/2021 04:51:00 PM EDT - 05/05/2021 11:59:00 AM EDT [facility] Patient discharged. Emergency Attender: Zaki OWENS ED-ED 01:54:00 AM EDT - 05/01/2021 09:45:00 AM EDT PSYCHIATRIC [facility] PSYCHIATRIC Patient discharged. Emergency Attender: Zaki OWENS ED-ED 11:28:00 PM EDT - 05/01/2021 01:25:00 AM EDT DEPRESSION [facility] DEPRESSION Patient discharged. Emergency Attender: Angelica Martinez MDAttender: Angelica Martinez MD ED-ED 04/30/2021 07:03:00 PM EDT - 04/30/2021 10:30:00 PM EDT [facility] DEPRESSION Patient discharged. Inpatient Attender: BOGDAN ALMAGUER MDAtten víctor: BROOKLYN ONEILL MDAttender: Ramón Levy MDAdmitter: BROOKLYN ONEILL MD ER-3RD 04/27/20 04:51:00 AM EDT - 04/30/2021 02:30:00 PM EDT [facility] Patient discharged. Inpatient Attender: BROOKLYN ONEILL MDAttender: Ramón Levy MDAdmitter: BROOKLYN ONEILL MD ER-3RD 04/26/2021 02:30:00 AM EDT - 04/26/2021 03:15:00 PM EDT [facility] Patient discharged. Emergency Attender: LAUREEN LUIS ES1-CP2 021 01:05:00 PM EDT - 04/24/2021 04:29:00 PM EDT [facility] Patient discharged. Emergency Attender: Zaki OWENS ED-ED 08:53:00 PM EDT - 04/24/2021 11:08:00 AM EDT SUICIDAL THOUGHTS,ANXIETY [facility] SUICIDAL THOUGHTS,ANXIETY Patient discharged. Emergency Attender: Ramón Levy MD ER-ER 1 10:29:00 PM EDT - 04/21/2021 03:43:00 PM EDT [facility] Patient discharged. Emergency Attender: ZEESHAN GROVER MD ER-ER 03/2021 01:17:00 AM EDT - 04/19/2021 02:55:00 PM EDT [facility] Patient discharged. Emergency Attender: KENRICK ZHOU PAAttender: Zaki OWENS ED-ED 04/17/2021 01:21:00 AM EDT - 04/17/2021 01:48:00 PM EDT CONSUMED CLEANING AGENT [facility] CONSUMED CLEANING AGENT Patient discharged. [facility]able [facility] 04/14/2021 12:00:00 AM EDT [facility]) Emergency Attender: Nils Argueta MD ER-ER 2020 08:28:00 PM EDT - 04/14/2021 04:43:00 PM EDT [facility] Patient discharged. Emergency Attender: THERESA BARAHONA [facility] ED-ED 08/2020 03:11:00 AM EDT - 04/13/2021 06:45:00 PM EDT THINKING OF SELF HARM [facility] THINKING OF SELF HARM Patient discharged. Inpatient Attender: BOGDAN ALMAGUER MDAtten víctor: ZEESHAN GROVER MDAdmitter: BOGDAN ALMAGUER MD ER-3RD 04/09/2021 12:50:00 PM EDT - 04/11/2021 10:46:00 AM EDT [facility] Patient discharged. Inpatient Attender: Deejay OWENS-linseed oil press tender: JOSE HICKS MDAttender: Leeroy Sharpttender: LEEROY HAMEED .Admitter: JOSE HICKS MDReferrer: JOSE HICKS MD [id number] 04/05/2021 12:00:00 AM EDT - 04/07/2021 12:21:00 PM EDT [facility] suicidal Patient discharged. Emergency Attender: LAUREENDeann LUIS ES1-CP2 021 11:17:00 PM EDT - 04/04/2021 01:56:00 PM EDT [facility] Patient discharged. Inpatient Attender: BOGDAN Hassan víctor: BROOKLYN ONEILL MDAttender: Nils Argueta MDAdmitter: BROOKLYN ONEILL MD ER-3RD 04/01/2021 0 6:08:00 PM EDT - 04/03/2021 10:22:00 AM EDT [facility] Patient discharged. Emergency Attender: KENRICK ZHOU PAAttender: Zaki OWENS ED-ED 03/27/2021 10:08:00 PM EDT - 03/30/2021 06:15:00 AM EDT SUICIDAL THOUGHTS,ANXIETY [facility] SUICIDAL THOUGHTS,ANXIETY Patient discharged. Emergency Attender: Leeroy RUIZttender: Leeroy OWENS ED-ED 03/25/2021 08:09:00 PM EDT - 03/25/2021 11:25:00 PM EDT MENTAL HEALTH ISSUES [facility] MENTAL HEALTH ISSUES Patient discharged. Inpatient Attender: Velasquez Lemos er: VELASQUEZ Richmondender: TARAH BOWMAN MDAdmitter: TARAH BOWMAN MD [id number] 03/21/2021 02:54:00 AM EDT - 03/24/2021 12:21:00 PM EDT [facility] Patient discharged. Psychiatric Diagnostic Evaluation (Non-Medical) [facility] 03/20/2021 01:00:00 AM EDT - 03/20/2021 01:00:00 AM EDT [facility] ([facility]) Emergency Attender: THERESA BARAHONA [facility] ED-ED 03/2021 12:32:00 AM EDT - 03/20/2021 01:00:00 AM EDT MENTAL HEALTH ISSUES [facility] MENTAL HEALTH ISSUES Patient discharged. Attender: Zeyad LaBarge 03/20/2021 12:00:00 AM EDT [facility] Out[facility] Attender: Darren Negron CINDER SNAPPER 03/17/2021 09:0 7:00 PM EDT [facility] Outpatient Attender: Darren Negron NPAdm itter: Divya Orozco NPConsultant: Divya Orozco NP 03/16/2021 09:50:00 PM EDT [facility] Su[facility] Ideations Inpatient Attender: Divya Orozco NPAdmitter: Divya gonzales CINDER SNAPPER 03/16/2021 09:50:00 PM EDT - 03/19/2021 11:43:00 AM EDT [facility] Patient discharged. Outpatient Attender: Vish Barr NPAd mitter: Divya Orozco NPConsultant: Divya Orozco NP 03/16/2021 09:50:00 PM EDT Suicidal Ideations [facility] Suicidal Ideations Outpatient Attender: Divya Orozco NPA dmitter: Divya Orozco NPConsultant: Divya Orozco NP 03/16/2021 09:50:00 PM EDT Suicidal Ideations [facility] Suicidal Ideations Emergency Attender: Anoop Bowman ER-ER 03/16/20 05:07:00 AM EDT - 03/16/2021 07:30:00 PM EDT [facility] Patient discharged. Emergency Attender: Leeroy OWENS ED-ED 021 11:49:00 PM EDT - 03/16/2021 01:34:00 AM EDT MEDICATION SWITCH FOR MENTAL HEALTH [facility] MEDICATION SWITCH FOR MENTAL HEALTH Patient discharged. IP PSYCH Attender: WADE KELLEY MD Attender: YOLANDE LIEBERMAN MDAttender: Marky Grant MDAdmitter: YOLANDE LIEBERMAN MDConsultant: William CoeirConsultant: WILLIAM BRO MD 2E-2A 03/13/2021 11:02:00 AM EDT - 03/15/2021 01:22:00 PM EDT [facility] Patient discharged. [facility]-billable [facility] 03/12/2021 12:00:00 AM EDT [facility]) Emergency Attender: Leeroy Sykesender: KENRICK OWENS ED-ED 03/05/2021 06:28:00 PM EDT - 03/06/2021 01:47:00 PM EDT MENTAL HEALTH ISSUES [facility] MENTAL HEALTH ISSUES Patient discharged. Emergency Attender: Ramirez Muñoz MD ED-ED 03/03/20 12:40:00 AM EDT - 03/03/2021 09:59:00 AM EDT MENTAL HEALTH [facility] MENTAL HEALTH Patient discharged. Emergency Attender: Nils Argueta MD ER-ER 2020 02:30:00 AM EDT - 03/02/2021 11:27:00 AM EDT [facility] Patient discharged. Emergency Attender: Nils Argueta MD ER-ER 2020 09:08:00 PM EDT - 03/01/2021 12:39:00 PM EDT [facility] Patient discharged. Outpatient [address] [id number] Integration Team 02/27/2021 02:45:00 PM EDT [facility] ([facility]) Patient admitted. Inpatient Attender: AYAN Clifton nder: Velasquez KeithAttender: VELASQUEZ KEITHAdmitter: AYAN DIAMOND MDReferrer: PROVIDER SYSTEM IN [facility] 02/21/2021 12:14:00 PM EDT - 02/25/2021 11:39:00 AM EDT [facility] Patient discharged. Emergency Attender: Ramón Levy MD ER-ER 0 02/20/2021 10:45:00 PM EDT - 02/21/2021 11:44:00 PM EDT [facility] Patient discharged. Emergency Attender: Ramón Levy MD ER-ER 0 02/19/2021 02:28:00 AM EDT - 02/19/2021 10:15:00 AM EDT [facility] Patient discharged. Emergency Attender: Anoop Bowman ER-ER 08/09/20 21 03:10:00 AM EDT - 02/17/2021 01:54:00 PM EDT [facility] Patient discharged. Emergency Attender: Santiago RajanAttender: Anoop Hayward R-ER 02/15/2021 08:00:00 PM EDT - 02/16/2021 01:02:00 PM EDT [facility] Patient discharged. Emergency Attender: KENRICK ZHOU RI ED-ED 02/14 09:21:00 PM EDT - 02/14/2021 11:01:00 PM EDT VOMITING,DIARRHEA [facility] VOMITING,DIARRHEA Patient discharged. Inpatient Attender: DYLAN Michelle er: BROOKLYN ONEILL MDAttender: AMADA MCLEAN MDAttender: KYLIE العلي MDAdmitter: AMADA MCLEAN MD ER-3RD 01/03/2021 11:03:00 AM EDT - 02/13/2021 11:40:00 AM EDT [facility] Patient discharged. Outpatient Attender: Tammie Kent [facility]CINDER SNAPPER [facility] deann [facility] 11/13/2020 09:30:00 AM EDT - 11/13/2020 09:30:00 AM EDT [facility] ([facility]) Attender: Tammie eKnt [facility]-CINDER SNAPPER 11/13/2020 12: 00:00 AM EDT [facility] ([facility]) Inpatient Attender: BROOKLYN ONEILL MDAttender: BOGDAN ALMAGUER MDAttender: KYLIE العلي MDAdmitter: BOGDAN ALMAGUER MD ER-3RD 10/31/2020 0 8:49:00 AM EDT - 01/01/2021 01:05:00 PM EDT [facility] Patient discharged. Outpatient [id number] 10/29/2020 09:35:00 PM EDT [facility] Psych Inpatient Attender: ZEESHAN GROVER MD Attender: BROOKLYN ONEILL MDAttender: ANSHUL STRAUSS MDAdmitter: BROOKLYN ONEILL MD ER-3RD 10:58:00 AM EDT - 10/29/2020 12:50:00 PM EDT [facility] Patient discharged. Extended Individual Psychotherapy - 45 min Attender: Ingrid salazar [facility] 08/27/2020 11:00:00 AM EST - 08/27/2020 11:00:00 AM EST [facility] ([facility]) Attender: [facility] 08/27/2020 12:00:00 AM EST [facility] ([facility]) Psychiatric Diagnostic Evaluation (Non-Medical) Attender: Rosa larios [facility] 08/23/2020 10:00:00 AM EST - 08/23/2020 10:00:00 AM EST [facility] ([facility]) Attender: [facility] 08/23/2020 12:00:00 AM EST [facility] ([facility]) Outpatient Referrer: FORTUNATO BUTCHER DO 07/11/2020 02 :52:00 PM EST suicide attempt, borderline personality disorder, depression [facility] suicide attempt, borderline personality disorder, depression Extended Individual Psychotherapy - 45 min Attender: Jessica Sotomayor [facility] 06/24/2020 11:00:00 AM EST - 06/24/2020 11:00:00 AM EST [facility] ([facility]) Attender: Fariba Sotomayor 06/24/2020 12:00:00 AM EST [facility] ([facility]) Inpatient Attender: FILI CANELA MDAt tender: Nils Argueta MDAttender: NILS ARGUETA MDAdmitter: FILI CANELA MD ER-3RD 06/15/2020 04:05: 00 AM EST - 06/17/2020 01:23:00 PM [facility] Patient discharged. Inpatient Attender: BOGDAN ALMAGUER MDAtten víctor: BROOKLYN ONEILL MDAttender: KYLIE العلي MDAdmitter: BROOKLYN ONEILL MD ER-3RD 12/2019 09:22:00 PM EDT - 05/17/2020 08:58:00 AM [facility] Patient discharged. Inpatient Attender: EDUARDO Salazar MDAttender: BOGDAN ALMAGUER MDAttender: AMADA MCLEAN MDAdmitter: AMADA MCLEAN MD ER-3RD 020 10:06:00 PM EDT - 12/13/2019 10:30:00 AM EDT [facility] Patient discharged. Inpatient Attender: BOGDAN ALMAGUER MDAtten víctor: FILI CANELA MDAttender: Ramón CHARLESMaria De Jesus Silvio MDAdmitter: BOGDAN ALMAGUER MD ER-3RD 11/02/2019 10:24:00 AM EDT - 11/08/2019 12:07:00 PM EDT [facility] Patient discharged. Inpatient Attender: BOGDAN ALMAGUER MDAtten víctor: BROOKLYN ONEILL MDAttender: AMADA MCLEAN MDAttender: ANSHUL STRAUSS MDAdmitter: AMADA MCLEAN MD ER-3RD 08/04/2019 06:28:00 PM EST - 08/11/2019 11:25:00 AM [facility] Patient discharged. Emergency Attender: ANSHUL STRAUSS MD ER-ER 1 07/13/2017 06:59:00 PM EDT - 05/18/2018 06:04:00 PM [facility] Emergency Attender: EDUARDO JERRY MD ER-ER 04/12/2018 05:21:00 PM EDT - 04/16/2018 06:48:00 PM EDT [facility] Immunizations Vaccine Date Status Description Data Source(s) COVID-19 VACCINE Sophia 11/12/2020 12:00:00 AM EDT completed DESIIS Vaccine Series Complete: YESThis Data wa s Submitted to [facility]. Medications Medication Brand Name Start Date Product Form Dose Route Admi nistrative Instructions Pharmacy Instructions Status Indications Reaction Description Data Source(s) Sertraline 50 MG Oral Tablet sertraline (ZOLOFT) table t 50 mg sertraline (ZOLOFT) tablet 50 mg 04/07/2021 10:45:00 AM EDT 50 mg Oral active 50 mg, Oral, Daily Standard, First dose on Wed04/07/21 at 1045, For 30 days [facility] Medication administered onsite aripiprazole 5 MG Oral Tablet ARIPiprazole (ABILIFY) t ablet 10 mg ARIPiprazole (ABILIFY) tablet 10 mg 04/07/2021 10:45:00 AM EDT 10 mg Oral active 10 mg, Oral, Daily Standard, First dose on 04/07/21 at 1045, For 30 days [facility] Medication administered onsite Sertraline 50 MG Oral Tablet Sertraline HCl 50 MG Oral Tablet (ZOLOFT) Sertraline HCl 50 MG Oral Tablet (ZOLOFT) 04/07/2021 12:00:00 AM EDT active Take 50 mg for 2 day s, then increase to 100 mg on 04/10, and increase to 150 mg on 04/13. [facility] olanzapine 5 MG/ML Injectable Solution OLANZapine (ZYP REXA) injection 10 mg OLANZapine (ZYPREXA) injection 10 mg 04/06/2021 10:45:00 PM EDT 10 mg Intramuscular completed 10 mg, Intr amuscular, Once, On 04/06/21 at 2245, For 1 dose
Reconstitute 10 mg vial with 2.1 mL SWFI; resulting solution is ~5 mg/mL; Use within 1 hour following reconstitution.
[facility] Medication administered onsite Prazosin 1 MG Oral Capsule prazosin (MINIPRESS) capsul e 1 mg prazosin (MINIPRESS) capsule 1 mg 04/05/2021 10:00:00 PM EDT 1 mg Oral active 1 mg, Oral, Nightly, First dose on 04/05/21 at 2200, For 30 days
Check vital signs before administering
[facility] Medication administered onsite olanzapine 10 MG Oral Tablet OLANZapine (ZYPREXA) tabl et 10 mg OLANZapine (ZYPREXA) tablet 10 mg 04/05/2021 07:40:57 PM EDT 10 mg Oral active 10 mg, Oral, Every 2 hours PRN, Agitation, MDD 20 mg, Starting on 04/05/21 at 1940, For 30 days [facility] Medication administered onsite Ibuprofen 400 MG Oral Tablet ibuprofen (MOTRIN) tablet 400 mg ibuprofen (MOTRIN) tablet 400 mg 04/05/2021 07:34:02 PM EDT 400 mg Oral act shea 400 mg, Oral, Every 6 hours PRN, Moderate Pain (Pain Scale Score 4-6), Headaches, Starting on 04/05/21 at 1934, For 30 days
Take with food.
[facility] Medication administered onsite multivitamin tablet 1 tablet 6003-0582-03 04/05/2021 08:00:00 AM EDT 1 {tbl} Oral active 1 tablet, Oral , Daily Standard, First dose on 04/05/21 at 0800, For 30 days [facility] Medication administered onsite Nicotine 2 MG Oral Lozenge nicotine (NICORETTE) lozeng e 2 mg nicotine (NICORETTE) lozenge 2 mg 04/05/2021 06:25:36 AM EDT 2 mg Mouth/Th roat active 2 mg, Mouth/Throat, Every 2 hours PRN, Smoking cessation, Starting on 04/05/21 at 0625, For 30 days
Should not be chewed or swallowed; allow to dissolve slowly (~20-30 minutes)
[facility] Medication administered onsite Ondansetron 4 MG Disintegrating Oral Tab let ondansetron (ZOFRAN-ODT) disintegrating tablet 4 mg ondansetron (ZOFRAN-ODT) disintegrating tablet 4 mg 04/05/2021 06:25:36 AM EDT 4 mg Oral active 4 mg, Oral, Every 6 hours PRN, Nausea, Starting on 04/05/21 at 0625, For 30 days
Dissolve on tongue.
[facility] Medication administered onsite Magnesium Hydroxide 80 [...] creatinine > 2 notify provider before administering.
[facility] Medication administered onsite Acetaminophen 325 MG [...] mg from all sources in 24 hrs.
[facility] Medication administered onsite Hydroxyzine Hydrochloride 50 MG Oral Tablet hydrOXYzin e (ATARAX) tablet 50 mg hydrOXYzine (ATARAX) tablet 50 mg 04/05/2021 06:25:35 AM EDT 50 mg Oral active 50 mg, Oral, Every 6 hours PRN, Anxiety, Sleep, Starting on 04/05/21 at 0625, For 30 days [facility] Medication administered onsite Aluminum Hydroxide 40 [...] at 0625, For 30 days
MDD 4
[facility] Medication administered onsite Melatonin 5 MG Oral Tablet melatonin tablet 5 mg melatonin t ablet 5 mg 04/05/2021 06:25:23 AM EDT 5 mg Oral active 5 mg, Oral, Nightly PRN, Sleep, Starting on 04/05/21 at 0625, For 30 days [facility] Medication administered onsite aripiprazole 10 MG Oral Tablet ARIPiprazole 10 MG Oral Tablet (ABILIFY) ARIPiprazole 10 MG Oral Tablet (ABILIFY) 03/25/2021 12:00:00 AM EDT 10 mg Oral active Take 1 tablet by mary kay th daily [facility] Escitalopram 5 MG Oral Tablet escitalopram oxalate (LE XAPRO) 5 mg tablet escitalopram oxalate (LEXAPRO) 5 mg tablet 03/15/2021 12:00:00 AM EDT 5 mg oral active anxiety with depression T carmela 1 tablet (5 mg total) by mouth 1 (one) time each day with dinner. [facility] anxiety with depression Prazosin 2 MG Oral Capsule prazosin (MINIPRESS) 2 mg c apsule prazosin (MINIPRESS) 2 mg capsule 03/15/2021 12:00:00 AM EDT 2 mg oral active post traumatic stress disorder Take 1 capsule (2 mg total) by mouth 1 (one) time each day at night. [facility] post traumatic stress disorder Lurasidone Hydrochloride 80 MG Oral Tabl et Lurasidone HCl 80 MG Oral Tablet (LATUDA) Lurasidone HCl 80 MG Oral Tablet (LATUDA) 02/26/2021 12:00:00 AM EDT 80 mg Oral active Take 1 tablet by mouth d [facility] Loratadine 10 MG Oral Tablet Loratadine 10 MG Oral Tab let (CLARITIN) Loratadine 10 MG Oral Tablet (CLARITIN) 02/26/2021 12:00:00 AM EDT 10 mg Oral active Take 1 tablet by mouth daily [facility] Lurasidone Hydrochloride 80 MG Oral Tabl et Lurasidone HCl 80 MG Oral Tablet (LATUDA) Lurasidone HCl 80 MG Oral Tablet (LATUDA) 02/26/2021 12:00:00 AM EDT 80 mg Oral aborted Take 1 tablet by mouth d [facility] topiramate 25 MG Oral Tablet Topiramate 25 MG Oral Tab let (TOPAMAX) Topiramate 25 MG Oral Tablet (TOPAMAX) 02/26/2021 12:00:00 AM EDT 75 mg Oral active Take 3 tablets by mouth daily [facility] Sertraline 50 MG Oral Tablet Sertraline HCl 50 MG Oral Tablet (ZOLOFT) Sertraline HCl 50 MG Oral Tablet (ZOLOFT) 02/26/2021 12:00:00 AM EDT 150 mg Oral aborted Take 3 tablets by mo uth daily [facility] Loratadine 10 MG Oral Tablet Loratadine 10 MG Oral Tab let (CLARITIN) Loratadine 10 MG Oral Tablet (CLARITIN) 02/26/2021 12:00:00 AM EDT 10 mg Oral aborted Take 1 tablet by mouth daily [facility] topiramate 25 MG Oral Tablet Topiramate 25 MG Oral Tab let (TOPAMAX) Topiramate 25 MG Oral Tablet (TOPAMAX) 02/26/2021 12:00:00 AM EDT 75 mg Oral aborted Take 3 tablets by mouth daily [facility] Sertraline 50 MG Oral Tablet Sertraline HCl 50 MG Oral Tablet (ZOLOFT) Sertraline HCl 50 MG Oral Tablet (ZOLOFT) 02/26/2021 12:00:00 AM EDT 150 mg Oral aborted Take 3 tablets by mo uth daily [facility] Prazosin 2 MG Oral Capsule Prazosin HCl 2 MG Oral Caps ule (MINIPRESS) Prazosin HCl 2 MG Oral Capsule (MINIPRESS) 02/25/2021 12:00:00 AM EDT 2 mg Oral active Take 1 capsule by mouth [facility] Pravastatin Sodium 20 MG Oral Tablet Pra vastatin Sodium 20 MG Oral Tablet (PRAVACHOL) Pravastatin Sodium 20 MG Oral Tablet (PRAVACHOL) 02/25 12:00:00 AM EDT 20 mg Oral active Take 1 tablet by mouth every evening [facility] montelukast 10 MG Oral Tablet Montelukast Sodium 10 MG Oral Tablet (SINGULAIR) Montelukast Sodium 10 MG Oral Tablet (SINGULAIR) 02/25/2021 12:00:00 AM EDT 10 mg Oral active Take 1 tablet by mouth n [facility]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 NON-OPIOID 1 OR 2 03/27/2021 12:00:00 AM ED [facility] URINE TEST VISUAL COLOR CMPRSN METHS URINE PREGNAN CY TEST 03/27/2021 12:00:00 AM [facility] TROPONIN QUANTITATIVE ASSAY OF TROPONIN QUANT 03/27/2021 12:00:00 A M [facility] COMPREHENSIVE METABOLIC PANEL COMPREHEN METABOLIC PANEL 03/12 12:00:00 AM [facility] Infusion, normal saline solution , 1000 cc 03/27[facility] HIGH SEVERITY&THREAT FUNCJ EMERGENCY DE PT VISIT 03/27/2021 12:00:00 AM [facility] URINALYSIS MICROSCOPIC ONLY MICROSCOPIC EXAM OF URINE 2020 12:00:00 AM [facility] EMERGENCY DEPARTMENT VISIT LOW/MODER SEVERITY EMERGENCY DEPT VISIT 03/20/2021 12:00:00 AM [facility] Psychiatric Diagnostic Evaluation (Non-Medical) 03/20/2021 12:00:00 AM EDT - 03/20/2021 12:00:00 AM EDT [facility] ([facility]) Psychiatric Diagnostic Evaluation (Non-Medical) 2020 12:00:00 AM EDT [facility] ([facility]) EMERGENCY DEPARTMENT VISIT MODERATE SEVERITY EMERGENCY DEPT VISIT 03/15/2021 12:00:00 AM [facility] Injection, ketorolac tromethamine, per 15 mg 12:00:00 AM [facility] THERAPEUTIC PROPHYLACTIC/DX INJECTION SUBQ/IM THER/PROPH/PAULY G INJ SC/IM 03/06/2021 12:00:00 AM [facility] FIBRIN DGRADJ PRODUCTS D-DIMER QUANTITATIVE FIBRIN DEGRADATI ON QUANT 03/03/2021 12:00:00 AM [facility] AMYLASE ASSAY OF AMYLASE 02/14/2021 12:00:00 AM [facility] LIPASE ASSAY OF LIPASE 02/14/2021 12:00:00 AM EDT [facility] OFFICE OUTPATIENT VISIT 15 MINUTES 11/13 12:00:00 AM EDT - 11/13/2020 12:00:00 AM EDT [facility] ([facility]) OFFICE OUTPATIENT VISIT 15 MINUTES 11/13/2020 12:00:00 AM EDT [facility] ([facility]) INTRODUCE COVID19 VACC IN MUSCLE, PERC, NEW TECH 6 11/12/2020 12:00:00 AM EDT [facility] Extended Individual Psychotherapy - 45 min 08/27/2020 12:00:00 AM EST - 08/27/2020 12:00:00 AM EST [facility] ([facility]) Extended Individual Psychotherapy - 45 min 12:00:00 AM EST [facility] ([facility]) Psychiatric Diagnostic Evaluation (Non-Medical) 08/23/2020 12:00:00 AM EST - 08/23/2020 12:00:00 AM EST [facility] ([facility]) Psychiatric Diagnostic Evaluation (Non-Medical) 2020 12:00:00 AM EST [facility] ([facility]) Extended Individual Psychotherapy - 45 min 06/24/2020 12:00:00 AM EST - 06/24/2020 12:00:00 AM EST [facility] ([facility]) Extended Individual Psychotherapy - 45 min 0 12:00:00 AM EST [facility] ([facility]) Results ID Date Data Source [id number] 05/08/2021 12:28:00 PM EDT [facility] [address] [id number] NAME: YARELI HATCH#: [id number] PHYSICIAN: HUBER MEDINA #: [id number] ADM. DATE: 05/06/21PATIENT : 00 DISCH. DATE: [50}DISCHARGE SUMMARYMHU discharge planNicotine Replacement TherapySmoking Status Current some day smokeriStopEND ENDDICT: 05/08/21 1228 Electronically SignedTRANS:05/08/21 1228 DYLAN CABRERATRANS BY:DATE SIGNED:05/08/21TIME SIGNED: 1228REPORT COPY TO: Name Value Range Interpretation Code Description Data Stephanie rce(s) Supporting Document(s) ID Date Data Source [id number] 05/08/2021 12:14:00 PM EDT [facility] DISCHARGE SUMMARYPATIENT NAME: YARELI HATCH MR#: [id number] PHYSICIAN: BROOKLYN ONEILL MDAUTHOR: Dylan Aquino DATE: 05/06/21 RM#: [id number] DATE:UhwvanmVpdxwzvzmrvqdd42-jbda-mvo single white femaleChief Complaint"I was impulsive and did something stupid"Reason for AdmissionUnsafe behaviors with a history of poor impulse control and suicidal ideations.Patient was unable to contract for safety prior to admissionHistory of Presenting Utsgzya35-rirt-ffn female who was admitted to mental health on an involuntary statusafter ingesting a bottle of shampoo. Patient was brought here by police aftershe eloped numerous times from [facility]. Upon arrival to [facility] patient stated she was discharged [...] to her that she is on an [facility] list [place] as her place of residence. Patient was also again reminded ofthe vast amount of services she has available to her in the community such asthe [facility] team, case management, counselors and therapists. When [...] female who lives in a supportive housing facility,[facility]. Patient was never graduated from high [...] second degree and chargesof disorderly conductHospital CourseHospital Nuwkip77-tnqg-dtl female was admitted to mental health on [...] planwas worked out with Madelin Michel the administrative assistant coordinator, and [facility]. At time of discharge patient continues [...] by opening up to the staff at [facility] shefeels this would be an effective [...] is also confirmed by the staff from [facility].Patient's Discharge ConditionVital SignsVital Signs-LastResult Date TimeB/P 132/78 05/08 0822Pulse Ox 99 05/07 1234Temp 97.7 05/07 1234Pulse 63 05/07 1234Resp 16 05/07 1234Patient's Discharge ConditionDischarge Date 05/08/21Discharge Conditon stableDischarge DispositionPatient is to be discharged back [facility]aminationMusculoskeletalMuscle Strength & Tone normalGait normalStation normalMental Status [...] rce(s) Supporting Document(s) ID Date Data Source [id number] 05/07/2021 05:08:00 PM EDT [address] [id number] HEALTH HISTORY AND PHYSICALPATIENT NAME: YARELI HATCH MR#: [id number] PHYSICIAN: BROOKLYN ONEILL MDAUTHOR: Ericka Dean MD DATE: 05/06/21 RM#: [id number] Complaint/Admit ReasonIngested shampoo/conditioner to end her lifeHistory of Presenting IllnessHISTORY IS LIMITED THE PT REFUSED TO BE SEEN BY THE MEDICINE VHTKVZM27 yo F who presents to the hospital with police because she ingested shampooand conditoner in an effort to end her life. [facility] and told staff she [...] seen by the medicine serviceExamVital SignsVital Signs-24 [id number] 3369 0828 1234Temp 97.5 97.7Pulse 77 63Resp 16 16B/P 128/83 123/78 136/84 115/75B/P MeanPulse Ox 96 99O2 DeliveryO2 Flow EztaYbL0Ccax ReviewLaboratory DataRecent Labs-48 hours05/[id number] 0051ChemistrySodium (136 - 147 mmol/L) 139Potassium (3.5 [...] TurbidUrine pH (5.0 - 8.0) 8.0Ur Specific [place] (1.010 - 1.025) 1.022Urine Protein (Negative) TraceUrine [...] psych serviceDATE SIGNED: 05/07/21 Electronically SignedTIME SIGNED: [id number] ERICKA DEAN MD Name Value Range Interpretation Code Description Data Stephanie rce(s) Supporting Document(s) ID Date Data Source [id number] 05/07/2021 12:49:00 PM EDT [address] PSYCHIATRIC ASSESSMENTPATIENT NAME: YARELI HATCH MR#: [id number] PHYSICIAN: BROOKLYN ONEILL MDAUTHOR: Dylan Aquino DATE: 05/06/21 RM#: [id number]-nvii-vvo single white femaleChief Complaint"I was impulsive and did something stupid"Reason for AdmissionUnsafe behaviors with a history of poor impulse control and suicidal ideations.Patient was unable to contract for safety prior to admissionHistory of Presenting Evlcdvx23-yyue-lly female who was admitted to mental health on an involuntary statusafter ingesting a bottle of shampoo. Patient was brought here by police aftershe eloped numerous times from [facility]. Upon arrival to [facility] patient stated she was discharged [...] to her that she is on an [facility] list [place] as her place of residence. [...] female who lives in a supportive housing facility,[facility]. Patient was never graduated from high [...] (5.0 - 8.0) 8.0 05/06 41Ur Specific [place] (1.010 - 1.025) 1.022 05/06 41Urine Protein [...] Patient will be monitored by staff [facility] the nurses station for the next 6 [...] medicationuse and the medications efficacy. Madelin, the administrative assistant coordinator will be incontact with [facility] and the [facility] team Assessment/PlanDiagnosis1. Major depressive disorderStatus [...] renner(s) Supporting Document(s) ID Date Data Source [id number] 05/06/2021 01:31:00 AM EDT [facility] [place] Name Value Range Interpretation Code Description Data Stephanie rce(s) Supporting Document(s) ACETAMINOPHEN < 2.0 ug/mL 0-30 [facility] Data Source [id number] 05/06/2021 01:31:00 AM EDT [facility] [place] Name Value Range Interpretation Code Description Data Stephanie rce(s) Supporting Document(s) SALICYLATE < 1.7 mg/dL 0.0-20.0 [facility] ID Date Data Source [id number] 05/06/2021 01:31:00 AM EDT [facility] [place] Name Value Range Interpretation Code Description Data Stpehanie rce(s) Supporting Document(s) ETOH NONE DETECTED [facility] NONE DETECTED ID Date Data Source [id number] 05/06/2021 01:31:00 AM EDT [facility] Name Value Range Interpretation Code Description Data Stephanie rce(s) Supporting Document(s) GLU 99 mg/dL 70-110 [facility] Patients taking Sulfasalazine may have f alsely depressedGlucose levels. Patients taking Sulfapyridine may havefalsely elevated Glucose levels. Patients should be drawnfor Glucose before the initial administration of eitherdrug. BUN 13 mg/dL 7-23 [facility] CRE 0.661 mg/dL 0.500-1.300 [facility] GFR > 60 mL/min [facility] CHLORIDE 109 mmol/L 99-110 [facility] NA 139 mmol/L 136-147 [facility] POTASSIUM 3.9 mmol/L 3.5-5.1 [facility] TCO2 25 mmol/L 20-33 [facility] ANION GAP 8.9 10.0-20.0 L [facility] CA 9.3 mg/dL 8.3-10.7 [facility] ALKALINE PHOS 110 U/L 45-117 [facility] TP 8.0 g/dL 6.0-7.8 [facility] ALB 4.0 g/dL 3.5-5.0 [facility] ESRD Dialysis patient Albumin reference range: 2.9-4.4 g/dL GL 4.0 g/dL 2.3-3.5 [facility] A/G 1.0 1.0-2.5 [facility] T. BILIRUBIN 0.4 mg/dL 0.1-1.1 [facility] The Dimension Mason Total Bilirubin is n ot recommended forpatients undergoing treatment with eltrombopag (Promacta)due to the potential for falsely elevated results. ALTI 58 U/L 6-54 [facility] Patients taking Sulfasalazine and/or Sul fapyridine may havefalsely depressed ALT levels. Patients should be drawn forALT before the initial administration of either drug. AST 32 U/L 6-38 N [facility] Patients taking Sulfasalazine and/or Sul fapyridine may havefalsely depressed AST levels. Patients should be drawn forAST before the initial administration of either drug. ID Date Data Source [id number] 05/06/2021 01:10:00 AM EDT [facility] [place] Name Value Range Interpretation Code Description Data Stephanie rce(s) Supporting Document(s) WBC 8.31 x10E3/uL 4.0-10.5 [facility] RBC 4.31 x10E6/uL 4.20-5.40 [facility] Hemoglobin 12.7 g/dL 12.0-16.0 [facility] Hematocrit 38.3 % 37.0-47.0 [facility] MCV 88.9 fL 81.0-99.0 [facility] MCH 29.5 pg 27.0-31.0 [facility] MCHC 33.2 g/dL 32.7-35.6 [facility] RDW 12.5 % 11.5-14.0 [facility] Platelet count 274 x10E3/uL 150-450 [facility] ital MPV 9.8 fl 6.9-9.5 [facility] Neutrophils 69.5 % 34-64 [facility] Lymphocytes 23.2 % 25-45 L [facility] Monocytes 6.0 % 1.7-10.6 [facility] Eosinophils 0.5 % 0.4-7.0 [facility] Basophils 0.4 % 0.1-2.0 [facility] Imm. Gran. 0.4 % 0.1-2.0 [facility] Abs. Neutro. 5.78 x10E3/uL 1.2-7.6 N [facility] [place] Abs. Lymph. 1.93 x10E3/uL 1.0-3.5 N [facility] Abs. Metcalfe. 0.50 x10E3/uL 0.1-1.0 N [facility] Abs. Eosin. 0.04 x10E3/uL 0.1-0.7 [facility] Abs. Baso. 0.03 x10E3/uL 0.0-0.1 N [facility] Abs. Imm. Gran. 0.03 x10E3/uL 0.0-0.1 N [facility] spital ANRBC% 0 % 0 [facility] ID Date Data Source [id number] 05/06/2021 12:41:00 AM EDT [facility] Name Value Range Interpretation Code Description Data Stephanie rce(s) Supporting Document(s) LCOVID-19, CORDELL NEGATIVE [facility] This lab was ordered by [facility] and reported by [facility]. ID Date Data Source [id number] 05/06/2021 01:27:00 AM EDT [facility] Name Value Range Interpretation Code Description Data Stephanie rce(s) Supporting Document(s) PCP VISTA NEG NEGATIVE [facility] MINIMUM LEVEL OF DETECTION IS 25 ng/ml BENZODIAZEPINES POS NEGATIVE [facility] POSITIVE RESULTS UNCONFIRMEDMINIMUM LEVE L OF DETECTION IS 200 ng/ml COCAINE VISTA NEG NEGATIVE [facility] MINIMUM LEVEL OF DETECTION IS 300 ng/ml AMPHETAMINES NEG NEGATIVE [facility] MINIMUM LEVEL OF DETECTION IS 1000 ng/ml BARBITURATES NEG NEGATIVE [facility] CUTOFF CONCENTRATION IS 200 ng/ml CANNABINOIDS NEG NEGATIVE [facility] CUTOFF CONCENTRATION IS 50 ng/ml METHADONE VISTA [facility]G [facility]GAT[facility] MINIMUM LEVEL OF DETECTION IS 300 ng/ml OPIATE VISTA NEG NEGATIVE [facility] MINIMUM DETECTION LEVEL IS 300 ng/ml ID Date Data Source [id number] 05/06/2021 01:25:00 AM EDT [facility] Name Value Range Interpretation Code Description Data Stephanie rce(s) Supporting Document(s) COVID-19, CORDELL NEGATIVE NEGATIVE [facility] Methodology: Isothermal Nucleic Acid Amp lification for [...] Emergency Use Authorization. ID Date Data Source [id number] 05/06/2021 01:11:00 AM EDT [facility] Name Value Range Interpretation Code Description Data Stephanie rce(s) Supporting Document(s) HCG QUAL URINE Negative Negative [facility] l ID Date Data Source [id number] 05/06/2021 01:11:00 AM EDT [facility] Name Value Range Interpretation Code Description Data Stephanie rce(s) Supporting Document(s) URINE COLOR Yellow [facility] UAPR Turbid [facility] UGLU Negative NEGATIVE [facility] URINE BILIRUBIN [facility] UKET Negative NEGATIVE [facility] USG 1.022 1.010-1.025 [facility] UBLO Negative NEGATIVE [facility] UpH 8.0 5.0-8.0 [facility] UPRO Trace Negative [facility] UUB 1.0 mg/dL 0.2-1.0 [facility] UNIT Negative Negative [facility] ULEU Negative Negative [facility] ID Date Data Source [id number] 05/06/2021 04:51:00 PM EDT [facility] [place] Physician DocumentationClLeticia Hinkle edical CenterName: Yareli DuvallAge: 20 yrsSex: FemaleDOB: 2000MRN: [id number] Date: 05/06/2021Time: 00:32Account#: [id number] MD:ED Physician Richie العليposition Summary:05/06/21 13:58Hospitalization [...] 400 mg intramuscular suspension,extended release syringe 400 wmydedt26 days2. ibuprofen 400 mg Oral tablet 1 [...] thoughts of suicide. Megestrol drinking shampooisattempt for emcjjob38:44 Unable to obtain exam due to patient being uncooperative.Vital Signs:00:37 BP 137 / 84; Pulse 84; Resp 16; Temp 97.7; Pulse Ox 99% ; Weight 104.33kg; Height 5 tp2ft. 6 in. ; Pain 0/10;16:31 BP 122 / 83 (auto/); Pulse 77 MON; Resp 18; Pulse Ox 96% ;ef100:37 Body Mass Index 37.12 (104.33 kg, 167.64 cm)tp200:37 Pain Scale: Hhmipkq4CKA:00:47 Patient medically screened.br06:44 Data reviewed: vital signs, nurses notes, EMS record, old medicalrecords, lab test brresult(s).11:37 ED course: Patient has refused to comply with staff, is verbally abusiveand sedisruptive, and is being physically restrained at this time. She has rnehvjjv47 mg ofIM Geodon and will get 2 mg of IM Ativan..04/2600:38 Order name: Acetaminophen Level; Complete Time: 10:35pz763/2610:32 Interpretation: Within normal limits.se04/2600:38 Order name: CBC with diff; Complete Time: 10:50eb8730:32 Interpretation: Within normal limits.se04/2600:38 Order name: CMP; Complete Time: 10:67ky798/0:33 Interpretation: Normal except: TP 8.0; ALTI 58.se0:38 Order name: COVID-19 PROFILE+LAB; Complete Time: 10:62kp5740:33 Interpretation: Within normal limits.se04/2600:38 Order name: ETOH; Complete Time: 10:06sh780/2610:33 Interpretation: Within normal limits.se0:38 Order name: Nmajokooj640/2600:38 Order name: Salicylate Level; Complete Time: 10:41wv359/2610:33 Interpretation: Within normal limits.se0:38 Order name: Triage - Drug Screen; Complete Time: 10:02in123/2610:33 Interpretation: Normal except: BENZODIAZEPINES POS.se0:38 Order name: UA; Complete Time: 10:13yr680/0:33 Interpretation: Within normal limits.se10/2600:38 Order name: Urine HCG Qualitative; Complete Time: 10:21jg331/2610:33 Interpretation: Within normal limits.se0:38 Order name: Diet - Mental Health Tray (call dietary); Complete Time:00:42 tp0:38 Order name: Belongings List; Complete Time: 13:57ho181/2600:38 Order name: Document Weight and Height for BMI; Complete Time: 00:15hg438:38 Order name: Mental Health Evaluation; Complete Time: 13:16to376:38 Order name: Mental Health Level 3; Complete Time: 13:75so915:38 Order name: VS q shift; Complete Time: 00:61gy5Yiblgsnif Medications:09:23 Drug: Ondansetron 8 mg Route: PO;jl11:41 Fol low up: Response: Nausea is eohpufefodt009:29 Drug: Geodon 20 mg Route: IM; Site: left deltoid;ef113:48 Follow up: Response: Anxiety exkimwowcxe190:38 Drug: LORazepam 2 mg Route: IM; Site: right vastus lateralis;ef113:48 Follow up: Response: Anxiety lsubcedqgcd7Rwgefiolgr:Dispatcher [employer] Kylie Fishman MD MD seHilborne, Erica, RN RN db7QdFzweiBertha Collier RN RN jlPutney, Taylor, RN RN tv2KxehqfkZeeshan browne MD MD br Name Value Range Interpretation Code Description Data Stephanie rce(s) Supporting Document(s) ID Date Data Source [id number] 05/06/2021 04:51:00 PM EDT [facility] Nurse's NotesCla[facility]-Crist[facility] Tootie terName: Yareli DuvallAge: 20 yrsSex: FemaleDOB: 2000MRN: [id number] Date: 05/06/2021Time: 00:32Account#: [id number] 5BPrivate SMITH:Diagnosis: Major depressive disorder, recurrent, unspecified;Borderlinepersonality disorderPresentation:04/2600:34 Presenting complaint: Patient states: discharged from mental health floor05/05/21. cn7Icajq a bottle of shampoo. Went to [facility], police brought pthere. Ptstates she was not [...] of amount of people live, such as longterm, familycare,intermediate, etc? no. Have you traveled to a location with widespread or ongoingCOVID-19community spread or outside of [facility]? no Have you traveled internationallyor hadcontact with someone that has traveled and has been ill in the past 3 weeks? noHaveyou received the COVID vaccine? No. Communicable Disease Screen: Negative forfever>/=100 degrees Fahrenheit. Communicable disease screen is negative. CommunicationSpeaksEnglish? Yes, is preferred language.00:34 Acuity: Triage 1mc053:34 Acuity Assignment: Triage 1jv051:34 Method Of Arrival: Jqyolule0Qhqvml Assessment:00:36 General: Appears in no apparent distress, Behavior is appropri ate forage, cooperative. gx0Mfyvop Screening: (1)Signs/symptoms infection No. Pain: Denies pain. [...] 400 mg intramuscular suspension,extended release syringe 400 pseqrbr97 days2. ibuprofen 400 mg Oral tablet 1 [...] threats or abuse. Denies injuries from another.Nutritional xe1jteprylig: No deficits noted. Offer of HIV testing: patient was previouslyofferedscreening. Fall Risk None identified.Assessment:00:42 Reassessment: No changes from previously documented assessment.tp211:05 General: pt repeatedly walking out of unit to doorway. does not walk outand easily klpredirected back in. PSA aware.11:29 Reassessment: attempted to elope; uncooperative and attempting to assaultstaff; code zq0bfdbzn called.11:39 Reassessment: screaming continuing to assault staff; placed in restrains.ef112:30 Reassessment: Patient states feeling better. Patient states symptoms haveimproved. klpreleased from restraints and walked to without incident.13:47 Reassessment: Patient appears in no apparent distress at this time.yj6Roeuhtfngbjl:09:59 SAFE Act Report Not Completed. Intervention: Observation Level 3. Mentalhealth consult nhis initiated at 09:59.10:46 Referral Information: Evaluation referral is generated by a policeagency: [facility]. The patient was referred for evaluation because Pt states she drank abottle ofshampoo last night and that she was brought to [facility] where she elopedand wasbrought here on a pickup order.11:02 Subjective: The patients chief complaint is Pt presents to the ED withState Police on nha pickup order due to the pt [facility], [facility] and does not know if [facility] [...] kill herself. Pt states she was transported [facility] where she eloped three times. Pt states on the third time, [place]back [place] and [place] it to her apartment where the State Police had a pickup order tobring thept to [facility] a psych evaluation. Pt states [...] Pt states [facility] [place] [facility] and has herfirstintake appointment with them on Wednesday (05/09). Pt denies legal issues. Ptdeniesaccess to guns. Delusions are denied, Hallucinations are denied. Patient's moodisdepressed, Having thoughts of suicide. Denies suicidal plan.11:49 Patient reports history of anxiety, Bipolar Disorder, Depression, panicattacks, nhpost-traumatic stress disorder, self -mutilation, sleep disturbance, suicideattempt:Overdose in February 2020 Mental Health Admissions: multiple admissions, [id number] Current Outpatient Mental Health Services: Therapist / Agency:[facility]. Living Environment: Family / Home [...] by screaming at them, andthreatening to elope ca(which the pt did a few times prior). [...] off the bridge when I eloped from [facility]." Pt isstill inrestraints and calmed down at this time. Pt is being monitored by staff andvitals arebeing taken every 15 minutes.15:39 Notification to family of patient status is not currently needed orappropriate. nhConsultation: Psych MD informed of patient's status at 13:10, ED MD notified ofpatients status at 13:30, Mental Health GLASSIE made aware of pt status at 13:15.Disposition: Medically cleared for disposition by Dr العلي. PsychiatricConsult isperformed by phone with Dr Oneill The patient is admitted to [facility].LegalStatus: Patient's legal status will be Emergency: 9.39. Commitment papers arecompleted. Pt has been provided with their legal status and rights. DSM-V DXAxis Idiagnosis: Major Depressive D/O [place] II diagnosis: Deferred [place] III diagnosis:None.[place] IV diagnosis: poor coping skills/poor impulse control. InsurancePre-Certification: Not Required. [facility] Admission Criteria: The patient has had asuicideattempt [...] Transition of careto Ptwill be transported to [facility] with PSA and MHW.16:22 [place] Suicide Severity Rating Scale: Suicidal Ideation Rating 5;Intensity of hj3Mexjdhyeo Rating 25; Suicidal Behavior Rating 0.Psych:00:37 Subjective: Patient's mood is sad, Delusions are denied, Hallucinationsare denied ja1Ilptkz thoughts of suicide. Denies suicidal plan. Objective: [...] 37.12 (104.33 kg, 167.64 cm)tp200:37 Pain Scale: Hlddmyj5II Course:00:33 Patient arrived in ED.tp200:34 Triage completed.tp200:42 Patient has correct armband on for positive identification. Placed ingown. Bed in low jq4ootkehfx. Call light in reach. Sitter at bedside.00:42 No Physician assisted procedures completed.tp200:46 Zeeshan Grover MD is Attending Physician.br00:47 Breonna Marie RN is Primary Nurse.tp210:32 Attending Physician role handed off by Zeeshan Grover MDse10:32 Kylie العلي MD is Attending Physician.se13:47 Appears to be sleeping.ef113:57 Brooklyn Oneill MD is Hospitalizing Provider.seAdministered Medications:09:23 Drug: Ondansetron 8 mg Route: PO;jl11:41 Follow up: Response: Nausea is gbafpcwvupd411:29 Drug: Geodon 20 mg Route: IM; Site: left deltoid;ef113:48 Follow up: Response: Anxiety xlchyzuktok010:38 Drug: LORazepam 2 mg Route: IM; Site: right vastus lateralis;ef113:48 Follow up: Response: Anxiety ldkgfsdfowf6Mptvlbh:13:58 Decision to Hospitalize by Provider.se16:09 Disposition: Admitted to Ckpuuiv382:09 Condition: stable, Provider notified of abnormal vital signs.16:09 Discharge instructions given to patient, Instructed on need for admit,Demonstratedunderstanding of instructions.16:09 Discharge Assessment: Patient verbalized understanding of dispositioninstructions.Patient has no functional deficits.16:51 Patient left the ED.zb2Vilwgesfmt:Елена Hugo, Kylie Sands RN, MD MD seHilborne, Erica, RN RN jd0LsLklarBertha Collier RN RN jlPutney, Taylor, RN RN hq5PvaozphZeeshan browne MD MD brHolmes, Marianna Brown, Pearl arambulapw2Imkbucvxcrl: (The following items were deleted from the chart)00:49 00:34 Presenting complaint: Patient states: [facility]. Drank a bottle of shampoo. Went to [facility]. tp211:05 10:46 Referral Information: Evaluation referral is generated by a policeagency: [facility]. The patient was referred for evaluation because Pt states she drank abottle ofshampoo last night and that she was brought to [facility] where she elopedand wasbrought here on a pickup order nh11:48 11:02 Subjective: The patients chief [facility] is [facility], pt states she currently lives at [facility] in [place] and does not know if they will accept her back there. Ptstatesher "maybe" not being let back there is stressing her out. Pt admits at 1845 PMlastnight she drank a regular bottle of shampoo and conditioner. nh11:56 11:02 Subjective: The patients chief complaint is [facility] the [facility] During E, pt states [facility] [place] and does not know if they will [...] to kill herself. Pt [facility]. Pt states on the third time,sheel[facility] and made it to her [place] where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 for fever>/= 100 degrees Fahrenheit. Communicablediseasescreen is negative. (-) rash or unusual skin lesion (-) travel/contact withtraveler(-) respiratory symptoms. Communication Speaks Estonian? Yes, is preferredlanguage.23:17 Acuity: Triage 1uq410:17 Method Of Arrival: Imquhllp553:19 Acuity Assignment: Triage 9et5Sdxsfu Assessment:23:21 General: Appears in no apparent distress, Behavior is anxious,cooperative. Sepsis hr3Rmbahelyp: (1)Signs/symptoms infection No. Pain: Denies pain. PSS-3 [...] 400 mg intramuscular suspension,extended release syringe 400 mjqveuu17 days3. ibuprofen 400 mg Oral tablet 1 [...] threats or abuse. Denies injuries from another.Nutritional vv2paenhtjaz: No deficits noted. Offer of HIV testing: patient was previouslyofferedscreening. Fall Risk None identified.Assessment:00:59 Reassessment: see triage.jw501:05 Reassessment: Patient went to bathroom then walked out the ER doors andonto the ER nb8txka refused to come inside, [employer] called and patient walked back in with patientplacedin restraints as per MD order without incident Patient remained in site at alltimes..02:00 Reassessment: Patient appears in no apparent distress at this time.Patient calm and si6lunsookwfjh at this time.02:15 Reassessment: Patient removed from restraints without incident.jw504:32 Reassessment: Patient appears in no apparent distress at this time.sv4Ufdgvkqtdspb:00:54 SAFE Act Report Not Completed. Intervention: Observation [...] herself. Ptreportsthat she feels that she needs intermediate designer treatment because she feels nothingelse isworking. Pt has a [facility] Pt was last inpatient at [facility] was April 09, 2021. Pthas adiagnosis of Anxiety, Depression, Borderline Personality Disorder. Pt denies HIandhallucinations. Delusions are denied, Hallucinations are denied. Patient's moodisdepressed, Having thoughts of suicide. Plan for suicide is overdose or hangself.01:05 Narrative PSA spoke to Zohra at [facility] [phone] who states that the pttells them ig0cjvq she is suicidal every day and she does not understand what is going on.She statesthat this is an every day thing with going to a hospital and gets gettingdischarged.She states that they are lost of what to do at this point and feel that [facility]treatment center.01:13 Patient reports history of anxiety, Bipolar Disorder, Depression, self-mutilation, ky8Geonn: BPD. Mental Health Admissions: multiple at multiple facilities last [facility] was04/09/21 Current Outpatient Mental Health Ser vices: Therapist / Agency:Grayson/Zev at [facility]. Living Environment: Family / Home Support: fair Thepatientcurrently lives in a [facility] apartment. The patient is single. Detox [...] took it from pt. Shewent to the xi3tqensjul then left the ED on the ramp, refusing to come inside. [employer]PD was called.Pt wasput in 4 point restraints.02:40 Transfer plan is communicated to Zohra at [facility]. Consultation: Psych MDinformed of im9sezkyaa's status at 02:00, ED MD notified of patients status at 02:40, MentalHealth ERRN made aware of pt status at 02:15. Disposition: Medically cleared fordisposition byDr Levy. Psychiatric Consult is performed by phone with Dr Dylan Clark NPThepatient is admitted to [facility] Patient report is given to Comfort AMAYA. LegalStatus:Patient's legal status will be Emergency: 9.39. Commitment papers arecompleted. pt hasbeen provided with the copy of her legal status and rights. DSM-V DX [place] Idiagnosis:Schizoaffective D/O. Insurance Pre-Certification: Not Required. [facility] AdmissionCriteria: The patient is experiencing suicidal ideation. [...] orsignificant dosageadjustments. Awaiting transfer to [facility]. Transition of care to pt will beescorted byPSA and security. The patient is not a flight attendant inflight services or dependent.ColumbiaSuicide Severity Rating Scale: Suicidal Ideation Rating 5; Intensity ofIdeationsRating 25; Suicidal Behavior Rating 0.Psych:04/1523:32 Subjective: Patient's mood is sad, Delusions are denied, Hallucinationsare denied ee5Nxhkad thoughts of suicide. Plan for suicide is hang self or OD. Objective:Patient iscooperative, Speech is normal, Affect is appropriate. Interventions: Removedpersonalitems and placed in bag. Patient placed in hospital gown. Searched person fordangerousitems. Observation Level Level 3 Sitter needed. Provider notified. [facility] nurse notified. Fortunato Mark RN Level 3 [...] for positive identification. Placed ingown. Sitter at pe5qtmwuwf.01:00 No Physician assisted procedures completed.jw501:09 Ramón Levy MD is Attending Physician.na102:00 Sitter at bedside.jw503:20 Brooklyn Oneill MD is Hospitalizing Provider.na104:33 Sitter at bedside.ss1Yyjlxjtoeelu Medications:No medications were administeredOutcome:03:21 Decision to Hospitalize by Provider.na105:05 Disposition: Admitted to Psych with chart.jw505:05 Condition: xbmvepysb89:05 Instructed on need for admit.05:05 Discharge Assessment: Patient verbalized understanding of dispositioninstructions.Patient has no functional deficits.05:06 Patient left the ED.pt6Vpxxdzcyaf:Ramón Levy MD MD bw6IpdbmFortunato humphrey RN RN fl0DjkoxkzxUsha Adams lo5Njklffkgovl: (The following items were deleted from the chart)01:01 00:54 Subjective: The patients chief complaint is Pt presents to the EDas a walk in sj7taxp [employer] for suicidal ideations. Pt had left [...] Ptreports that she feels that she needs intermediate designer treatment because she feelsnothingelse is wo rking. Pt has a long history of being inpatient for mental health atmultipledifferent facilities. Pt was last inpatient at [facility] . sm802:44 01:15 Narrative Pt walked to bathroom then left ED on ramp. [place]. [place] [id number] Name Value Range Interpretation Code Description Data Stephanie rce(s) Supporting Document(s) ID Date Data Source [id number] 04/25/2021 11:05:00 PM EDT [facility] Name Value Range Interpretation Code Description Data Stephanie rce(s) Supporting Document(s) LCOVID-19, CORDELL NEGATIVE [facility] This lab was ordered by [facility] and reported by [facility]. ID Date Data Source [id number] 04/26/2021 12:17:00 AM EDT [facility] Name Value Range Interpretation Code Description Data Stephanie rce(s) Supporting Document(s) COVID-19, CORDELL NEGATIVE NEGATIVE [facility] Methodology: Isothermal Nucleic Acid Amp [...] Emergency Use Authorization. ID Date Data Source [id number] 04/24/2021 03:18:28 PM [facility] INFORMATIONPatient MRN Name Date of Age Gend*PT [id number] GrayLos dwyera 00 20 years M CPEPPT Location Admission Date/Time Visit ID Attending ProviderNONE 04/24/21 1315 --- Laureen Luis MD([id number]) EPI ID CSN Admitting Provider [id number] Attestation signed by Laureen Luis MD at 04/24/2021 3:18 PMInitial time of commencing Psychiatrist sczw-gp-wbiz encounter with patient:04/24/21 1440 : Laureen Luis MDI have examined the patient, vmeu-oi-ysxc, and have personally participated inperforming a psychiatric [...] treatment plan with the patient and team [facility] PSYCHIATRIC ASSESSMENTPatient Name: Yareli Galindo at [facility]: 04/24/21 1305Psych CINDER SNAPPER First Contact: Yes (04/24/21 1331 : Aysha Valles NP)Chief ComplaintChief ComplaintPatient presents with Psychiatric Evaluation Pt's name is Daisy, he/him pronouns. [place]. Lives in transitional living. [facility] ago. Presents often to [place] for SI per ED staff.Current StressorsCurrent Stressors: Pyschiatric SymptomsHistory of Present IllnessThe patient is a 20-year-old transgender individual (biological female,identifies as male gender, prefers he/him pronouns, preferred name "Daisy"). Thepatient was transferred to [facility] from [facility] to reports of vague suicidal ideation/passive wish [...] ER until they place margarette an new mcc". Thus, these "suicidal statements" appear to be made huyen conditional basis if new housing is secured. Patient is fully connected withoutpatient mental health treatment providers, and an AOT order in [facility] (AOT coordinator is Laureen Alarcon ([phone]) and correctional counselor/case manager Taye ([phone]). [facility] also [facility], Mr. Grayson Farley. Has a psychiatricprescriber but patient cannot recall the prescribers name, reports compliancewith medication. Patient resides in a supervised housing program, staffadministers medications at scheduled intervals. Patient denies use of illicitdrugs and does not drink alcohol (UDS obtained at [facility] EDn egative). Patient does add that there is another stressor of pending legalcharges from reportedly assaulting a nurse, resulting in harassment charge, [facility]. Patient has been calm and cooperative at [facility],exhibits strong features of personality disorder with borderline [...] today, [facility] as he does not currently meet criteria forinpatient psychiatric hospitalization. [facility] that he will likely represent to another ED (not for any acuteproblem, cites housing as primary stressor). Social work consult has beenordered, case discussed with CPEP team including RN, social worker health services and .Treatment plan goals to be addressed and resolved with social worker health services, see notes.Addendum: I spoke with patient's AOT coordinator Ms. Lorraine Alarcon. Susanxplains that patient is a former [facility] resident, now she is a [facility] resident as she lives in this transitional living facilitywith 01/02 staff in [facility]. [facility]en [facility]. [facility] ([place], [place]) [facility] ([place], [place]). Laureen is aware that [facility] is [facility], Lorraine states that this is fine if the respite facility is [facility], Medicaid transportation will bring her back to her communityresidence [facility] when needed. Ms. Alarcon would like to beupdated when a final disposition is made, she can be reached at [phone].Patient InfoHistory provided by: patient, medical recordsLanguage asl interpreter used?: NoHPI: Mental Health ProblemPresenting Symptoms: anxiety (Made vague suicidal statements conditional on ifshe is discharged back to her community residence or not, states she would notbe suicidal if she stays in the hospital or goes to a respite facility, no planor intent to harm self or others, no psychosis)Patient accompanied by: (Sent from [facility] ED)Degree of incapacity (severity) : mildTiming: rareProgression: improvingChronicity: chronicContext : Current interpersonal stressorTreatment compliance: all of the timeRelieved by: antipsychotics, mood stabilizersIneffective Treatments: none triedAssociated symptoms: irritabilityRisk factors: (borderline personality disorder)Care Coordination/CollateralObtained, see above.HistoryPast Psychiatric HistoryOutside Treatment HistoryTreatment History Location Date of Last Tx Type of Tx Tx Reason/Dx Tx Length of Stay Tx helpful?Drug/Alcohol Rehab? Records Requested? Comments [facility] March 2019 Inpatient Suicidal thoughts 24 hours No [facility] 2017 Inpatient Suicidal thoughts 1 year [...] Memory: IntactInsight: GoodJudgment: Good (Adequate)Orientation: Appropriately Oriented z6Yolodzjw Toward Examiner: CooperativeAssociations: No loosening evidentFund of [...] end yourlife)? 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 reported to apprentice that she "drank some mouthwash" 3weeks ago [...] to the hospital because he dislikes his mcc, wants usto get a new mcc for him, future and goal oriented, no [...] goals to beaddressed and resolved with social worker health services, see notesPlan/Assessment #2: No medication changes, c ontinue home medication regimen asprescribedPlan/Assessment #3: Chart reviewed, outpatient treatment team to be contacted byEP social worker health services (social work consult ordered)General Treatment Plan - GOAL: The patient will have stabilization of presentingsymptoms in order to progress towards discharge from [facility] and have identifiedthe resources available until outpatient follow up.OBJECTIVE: The patient will be assisted with support resources post discharge:While at [facility], the RN or social worker health services will have a one on one conversation withthe patient to verbally identify their individual supports post discharge.,While at [facility], the RN or B2B Outside Sales Representative will have a one on one conversation withthe patient to verbally identify whom to contact for collateral information andobtain patient consent in writing., While at [facility], the RN or B2B Outside Sales Representative willhave a one on one conversation with the patient to verbally identify what followup resources will be most beneficial to the patient., While at [facility], the RN orSocial Worker will have a one on one conversation with the patient to verballyidentify any of their perceived and/or actual barriers to post discharge care.,While at [facility], the RN or B2B Outside Sales Representative will have a one on one conversation withthe patient to verbally explain the Mobile Crisis Outreach Team and encouragepatient to follow up with an appointment.Anxiety Treatment Plan - GOAL: The patient will have stabilization ofpresenting symptoms in order to progress towards discharge from [facility] and haveidentified the resources available until outpatient follow up.OBJECTIVE: The patient will have reduced overall frequency, intensity, andduration of anxiety so that activities of daily living are not impaired while atCP.: While at [facility], the RN or social worker health services will have a one on oneconversation with the patient to verbally identify their triggers for anxiety.,While at [facility], the RN or B2B Outside Sales Representative will have a one on one conversation [...] No changes [] No side effectsBilling Code: [id number] signed byLonnie Villegas Bvfywrmpzpii30/14/21 1459Lonnie Villegas Hrpubarvmzkq33/14/21 1500 Name Value Range Interpretation Code Description Data Stephanie rce(s) Supporting Document(s) ID Date Data Source [id number] 04/23/2021 10:55:00 PM EDT [facility] Name Value Range Interpretation Code Description Data Stephanie rce(s) Supporting Document(s) Respiratory specimen severe acute respir atory syndrome coronavirus 2 (SARS-CoV-2) RNA Negative (qualifier value) [facility] This lab was ordered by [facility] and reported by . ID Date Data Source [id number] 04/23/2021 11:18:00 PM EDT [facility] Name Value Range Interpretation Code Description Data Stephanie rce(s) Supporting Document(s) SARS-CoV-2 RNA Negative Normal (applies to non-numeric r esults) [facility] Negative results should be treated as pr [...] Certificate of Accreditation. Factsheets for healthcare providers: https://www.fda.gov/media/347742/download Factsheets for patients: https://www.fda.gov/media/088281/download The ID NOW Instrument is a rapid molecular in vitro diagnostic test utilizing an isothermal nucleic acid amplification technology intended for the qualitative detection of nucleic acid from the SARS-CoV-2 viral RNA. THIS IS A STATE REPORTABLE COMMUNICABLE DISEASE. Manual entry verified by Megan Murphy 04/23/21 2317 ID Date Data Source [id number] 04/23/2021 10:16:00 PM EDT [facility] Name Value Range Interpretation Code Description Data Stephanie rce(s) Supporting Document(s) Troponin I 0.000-0.056 Normal (applies to non-numeric resu lts) [facility] ID Date Data Source [id number] 04/23/2021 10:16:00 PM EDT [facility] Name Value Range Interpretation Code Description Data Stephanie rce(s) Supporting Document(s) Sodium 141 mmol/L 136-145 Normal (applies to non-numeric resul ts) [facility] Potassium 3.5-5.1 Normal (applies to non-numeric resul ts) [facility] Chloride 106 mmol/L 98-107 Normal (applies to non-numeric resul ts) [facility] Carbon Dioxide CO2 21-32 Normal (applies to non-numer ic results) [facility] Anion Gap 5.0-16.0 Normal (applies to non-numeric resul ts) [facility] BUN 18 mg/dL 7-18 Normal (applies to non-numeric results) [facility] Creatinine,Serum 0.7-1.2 Normal (applies to non-numeric results) [facility] GFR >60 Normal (applies to non-numeric results) [facility] Glucose Level 108 mg/dL 60-99 Above high normal [facility] Reference range is only applicable when patient is fasting Note the following drug interference: Sulfasalazine Sulfapyridine Can see falsely depressed Can see falsely elevated result with up to 17% results with up to 11% decrease in measurement increase in measurement Recommend patients be collected for this test prior to administration of either drug. Calcium 8.5-10.1 Normal (applies to non-numeric resul ts) [facility] Bilirubin,Total 0.1-1.9 Normal (applies to non-numeric results) [facility] SGOT(AST) 34 U/L 15-37 Normal (applies to non-numeric resul ts) [facility] Note the following drug interference: Sulfasalazine Sulfapyridine Can see falsely depressed Can see falsely elevated result with up to 10% results with up to 10% decrease in measurement increase in measurement Recommend patients be collected for this test prior to administration of either drug. SGPT(ALT) 57 U/L 12-78 Normal (applies to non-numeric resul ts) [facility] Note the following drug interference: Sulfasalazine Sulfapyridine Can see falsely depressed Can see falsely elevated result with up to 29% results with up to 10% decrease in measurement increase in measurement Recommend patients be collected for this test prior to administration of either drug. Alkaline Phosphatase 125 U/L 38-126 Normal (applies to non-num deena results) [facility] can increase Alkaline Phosp le vels up to 2 times the normal adult value. Normal values for children and adolescents are 2 to 3 times the normal adult value. Total Protein 6.0-8.2 Normal (applies to non-numeric re sults) [facility] Albumin Level 3.4-5.0 Normal (applies to non-numeric re sults) [facility] ID Date Data Source [id number] 04/23/2021 10:16:00 PM EDT [facility] Name Value Range Interpretation Code Description Data Stephanie rce(s) Supporting Document(s) Magnesium 1.8-2.4 Normal (applies to non-numeric resul ts) [facility] ID Date Data Source [id number] 04/23/2021 10:16:00 PM EDT [facility] Name Value Range Interpretation Code Description Data Stephanie rce(s) Supporting Document(s) Salicylate 2.8-20.0 Below low normal [facility] ID Date Data Source [id number] 04/23/2021 10:16:00 PM EDT [facility] Name Value Range Interpretation Code Description Data Stephanie rce(s) Supporting Document(s) Acetaminophen 10.0-30.0 Below low normal [facility] ID Date Data Source [id number] 04/23/2021 10:13:00 PM EDT [facility] Name Value Range Interpretation Code Description Data Stephanie rce(s) Supporting Document(s) Ethanol Less than 10.0 Normal (applies to non-numeric r esults) [facility] ID Date Data Source [id number] 04/23/2021 09:42:00 PM EDT [facility] Name Value Range Interpretation Code Description Data Stephanie rce(s) Supporting Document(s) White Blood Count 3.5-10.5 Normal (applies to non-numeri c results) [facility] Red Blood Count 3.90-5.00 Normal (applies to non-numeric results) [facility] Hemoglobin 12.0-15.5 Normal (applies to non-numeric resul ts) [facility] Hematocrit 34.9-44.5 Normal (applies to non-numeric resul ts) [facility] Mean Corpuscular Volume 81.2-95.1 Normal (applies to non- numeric results) [facility] Mean Corpuscular Hgb 25.6-32.2 Normal (applies to non-num deena results) [facility] Mean Corpuscular Hgb Conc 32.0-36.0 Normal (applies to no n-numeric results) [facility] Red Cell Distribution Width 11.9-15.5 Normal (appli es to non-numeric results) [facility] Platelet Count 288 x10 3/uL 150-450 Normal (applies to non-numeric results) [facility] Mean Platelet Volume 9.4-12.4 Normal (applies to non-num deena results) [facility] Neutrophils% (Auto) 31.0-71.0 Normal (applies to non-nume frank results) [facility] Lymphocytes% (Auto) 20.0-55.0 Normal (applies to non-nume frank results) [facility] Monocytes% (Auto) 4.0-12.0 Normal (applies to non-numeri c results) [facility] Eosinophils% (Auto) 1.0-8.0 Normal (applies to non-nume frank results) [facility] Basophils% (Auto) 0.0-2.0 Normal (applies to non-numeri c results) [facility] Immature Granulocytes% (Auto) 0.0-2.0 Normal (alexander lies to non-numeric results) [facility] Neutrophils# (Auto) 1.50-6.20 Normal (applies to non-nume frank results) [facility] Lymphocytes# (Auto) 1.20-4.00 Normal (applies to non-nume frank results) [facility] Monocytes# (Auto) 0.00-0.90 Normal (applies to non-numeri c results) [facility] Eosinophils# (Auto) 0.00-0.50 Normal (applies to non-nume frank results) [facility] Basophils# (Auto) 0.00-0.20 Normal (applies to non-numeri c results) [facility] Immature Granulocytes# (Auto) 0.00-7.00 No rmal (applies to non-numeric results) [facility] ID Date Data Source [id number] 04/23/2021 09:58:00 PM EDT [facility] Name Value Range Interpretation Code Description Data Stephanie rce(s) Supporting Document(s) UDS Benzodiazepines Screen Negative Normal (applies to n on-numeric results) [facility] UDS Cocaine Screen Negative Normal (applies to non-numer ic results) [facility] UDS Ampetamine Screen Negative Normal (applies to non-nu meric results) [facility] UDS Cannabinoids Screen Negative Normal (applies to non- numeric results) [facility] UDS Opiates Screen Negative Normal (applies to non-numer ic results) [facility] UDS Barbiturates Screen Negative Normal (applies to non- numeric results) [facility] Threshold Levels Benzodiazepine 200 ng/mL Cocaine 300 ng/mL Amphetamines 1000 ng/mL Cannabinoids (THC) 50 ng/mL Opiates 300 ng/mL Barbiturates 200 ng/mL All positive findings are presumptive and unconfirmed. Confirmation of positive results are performed only at request of provider. Unconfirmed results must not be used for non-medical purposes (i.e. preemployment and legal purposes) ID Date Data Source [id number] 04/23/2021 09:52:00 PM [facility] Collected By: Nurse Initials: JT Time Collected: 2115 Collected By: Nurse Initials: JT Time Collected: 2115 Collected By: Nurse Initials: JT Time Collected: 2115 Name Value Range Interpretation Code Description Data Stephanie rce(s) Supporting Document(s) Color,Urine Colorl-Dk Y Normal (applies to non-numeric res ults) [facility] Clarity,Urine Clear Normal (applies to non-numeric re sults) [facility] Specific [place],Urine 1.005-1.030 Normal (applies to non- numeric results) [facility] pH,Urine 5.0-8.0 Normal (applies to non-numeric resul ts) [facility] Protein,Urine Negative [facility] [place] Glucose,Urine Negative Normal (applies to non-numeric re sults) [facility] Ketones,Urine Negative Normal (applies to non-numeric re sults) [facility] Blood,Urine Negative [facility] Bilirubin,Urine Negative Normal (applies to non-numeric results) [facility] Urobilinogen,Urine 0.2-1.0 Normal (applies to non-numer ic results) [facility] Leukocyte Esterase,Urine Negative Normal (applies to non -numeric results) [facility] Nitrite,Urine Negative Normal (applies to non-numeric re sults) [facility] ID Date Data Source [id number] 04/23/2021 09:52:00 PM [facility] Collected By: Nurse Initials: JT Time Collected: 2115 Collected By: Nurse Initials: JT Time Collected: 2115 Collected By: Nurse Initials: JT Time Collected: 2115 Name Value Range Interpretation Code Description Data Stephanie rce(s) Supporting Document(s) RBC,Urine None Seen [facility] WBC,Urine None Seen [facility] Casts,Urine None Seen Normal (applies to non-numeric resu lts) [facility] Squamous Cells,Urine None Seen [facility] Amorphous Sediment,Urine None Seen [facility] Bacteria,Urine None Seen [facility] ital ID Date Data Source [id number] 04/23/2021 09:52:00 PM EDT [facility] Collected By: Nurse Initials: JT Time Collected: 2115 Collected By: Nurse Initials: JT Time Collected: 2115 Collected By: Nurse Initials: JT Time Collected: 2115 Name Value Range Interpretation Code Description Data Stephanie rce(s) Supporting Document(s) HCG,Ur Negative Normal (applies to non-numeric results) [facility] ID Date Data Source [id number] 04/21/2021 02:53:00 PM EDT [address] CONSULTPATIENT NAME: YARELI HATCH MR#: [id number] PHYSICIAN:[facility]: [facility] DATE: #: ERPATIENT : 00See AddendumHistoryHistory of Presenting IllnessPatient is 20-year-old female, currently lives in [facility], single, pastpsych history of borderline personality disorder, bipolar disorderChief complaint: Suicidal ideationHistory of present illness: Patient was seen along with PA students. Accordingto information from PSA patient was presented last night. She was banging herhead and expressing suicidal ideation while she was at [facility] and that is when shewas brought [...] as reaching out to staff member at [facility] if she does not feel safe.ER physician seems to be frustrated with patient recurrent emergency room visitbut upon discussion with the patient patient denied having any such behaviorpertaining to her safety prior to coming to the hospital or any intent to harmherself prior to the hospital. She was also requesting to have her clotheschanged and going back to [facility] as she was under order of [facility]. [...] this point.Past Psych/Medical HistoryAllergiesCoded Allergies:risperidone (08/04/19)ADDENDUM: Colleen SMITH,[facility] on 04/21/21 at 1504Patient was also offered a voluntary admission to inpatient mental health unitfor further treatment or if she does not feel safe to return back to [facility].However patient declined and also recommended case management services toprovide her help to find a suitable place that patient likes.DATE SIGNED: 04/21/21 Electronically SignedTIME SIGNED: [id number] BOGDAN ALMAGUER MD Name Value Range Interpretation Code Description Data Stephanie rce(s) Supporting Document(s) ID Date Data Source [id number] 04/20/2021 11:19:00 PM EDT [facility] [place] Name Value Range Interpretation Code Description Data Stephanie rce(s) Supporting Document(s) SALICYLATE < 1.7 mg/dL 0.0-20.0 [facility] ID Date Data Source [id number] 04/20/2021 11:19:00 PM EDT [facility] [place] Name Value Range Interpretation Code Description Data Stephanie rce(s) Supporting Document(s) ACETAMINOPHEN < 2.0 ug/mL 0-30 [facility] ID Date Data Source [id number] 04/20/2021 11:19:00 PM EDT [facility] [place] Name Value Range Interpretation Code Description Data Stephanie rce(s) Supporting Document(s) ETOH NONE DETECTED [facility] NONE DETECTED ID Date Data Source [id number] 04/20/2021 11:19:00 PM EDT [facility] [place] Name Value Range Interpretation Code Description Data Stephanie rce(s) Supporting Document(s) GLU 100 mg/dL 70-110 [facility] Patients taking Sulfasalazine may have f alsely depressedGlucose levels. Patients taking Sulfapyridine may havefalsely elevated Glucose levels. Patients should be drawnfor Glucose before the initial administration of eitherdrug. BUN 16 mg/dL 7-23 [facility] CRE 0.657 mg/dL 0.500-1.300 [facility] GFR > 60 mL/min [facility] CHLORIDE 111 mmol/L 99-110 [facility] NA 142 mmol/L 136-147 [facility] POTASSIUM 3.9 mmol/L 3.5-5.1 [facility] TCO2 24 mmol/L 20-33 [facility] ANION GAP 10.9 10.0-20.0 [facility] CA 8.6 mg/dL 8.3-10.7 [facility] ALKALINE PHOS 118 U/L 45-117 [facility] TP 7.4 g/dL 6.0-7.8 [facility] ALB 3.4 g/dL 3.5-5.0 [facility] ESRD Dialysis patient Albumin reference range: 2.9-4.4 g/dL GL 4.0 g/dL 2.3-3.5 [facility] A/G 0.9 1.0-2.5 [facility] T. BILIRUBIN 0.3 mg/dL 0.1-1.1 [facility] The Dimension Mason Total Bilirubin is n ot recommended forpatients undergoing treatment with eltrombopag (Promacta)due to the potential for falsely elevated results. ALTI 46 U/L 6-54 [facility] Patients taking Sulfasalazine and/or Sul fapyridine may havefalsely depressed ALT levels. Patients should be drawn forALT before the initial administration of either drug. AST 33 U/L 6-38 [facility] Patients taking Sulfasalazine and/or Sul fapyridine may havefalsely depressed AST levels. Patients should be drawn forAST before the initial administration of either drug. ID Date Data Source [id number] 04/20/2021 11:01:00 PM EDT [facility] [place] Name Value Range Interpretation Code Description Data Stephanie rce(s) Supporting Document(s) WBC 7.79 x10E3/uL 4.0-10.5 [facility] RBC 3.99 x10E6/uL 4.20-5.40 [facility] Hemoglobin 11.7 g/dL 12.0-16.0 [facility] Hematocrit 35.3 % 37.0-47.0 [facility] MCV 88.5 fL 81.0-99.0 [facility] MCH 29.3 pg 27.0-31.0 [facility] MCHC 33.1 g/dL 32.7-35.6 [facility] RDW 12.2 % 11.5-14.0 [facility] Platelet count 264 x10E3/uL 150-450 [facility] ital MPV 9.5 fl 6.9-9.5 [facility] Neutrophils 65.2 % 34-64 [facility] Lymphocytes 27.2 % 25-45 [facility] Monocytes 6.0 % 1.7-10.6 [facility] Eosinophils 1.0 % 0.4-7.0 [facility] Basophils 0.3 % 0.1-2.0 [facility] Imm. Gran. 0.3 % 0.1-2.0 [facility] Abs. Neutro. 5.08 x10E3/uL 1.2-7.6 [facility] [place] Abs. Lymph. 2.12 x10E3/uL 1.0-3.5 N [facility] Abs. Metcalfe. 0.47 x10E3/uL 0.1-1.0 N [facility] Abs. Eosin. 0.08 x10E3/uL 0.1-0.7 L [facility] Abs. Baso. 0.02 x10E3/uL 0.0-0.1 N [facility] l Abs. Imm. Gran. 0.02 x10E3/uL 0.0-0.1 [facility] spital ANRBC% 0 % 0 [facility] ID Date Data Source [id number] 04/20/2021 10:40:00 PM EDT [facility] Name Value Range Interpretation Code Description Data Stephanie rce(s) Supporting Document(s) LCOVID-19, CORDELL NEGATIVE [facility] This lab was ordered by [facility] and reported by [facility]. ID Date Data Source [id number] 04/20/2021 11:16:00 PM EDT [facility] [place] Name Value Range Interpretation Code Description Data Stephanie rce(s) Supporting Document(s) COVID-19, CORDELL NEGATIVE NEGATIVE [facility] Methodology: Isothermal Nucleic Acid Amp lification for [...] Emergency Use Authorization. ID Date Data Source [id number] 04/21/2021 03:43:00 PM EDT [facility] [place] Physician DocumentationClaxlexy-Cristina Hinkle edical CenterName: Yareli AdamelAge: 20 yrsSex: FemaleDOB: 2000MRN: [id number] Date: 04/20/2021Time: 22:29Account#: [id number] MD: NONE, - Per PatientED Physician Ab Pires Summary:04/21/21 15:00Discharge OrderedLocation: Home Self CareafProblem: an ongoing problemafSymptoms: are unchangedafCondition: StableafDiagnosis- Adjustment disorder, unspecifiedafFollowup:af- With: Private Physician- When: 1 week- Reason: Recheck today's complaintsDischarge Instructions:- ADJUSTMENT DISORDERaf- Discharge Summary Qntgnqe7Pykrv:- Medication Reconciliationaf- Medication Reconciliation Form - 2nd CopyafHPI:04/1104:45 This 20 yrs old White Female presents to ER via Police with complaints ofPsych Problem.na104:45 The patient presents to the emergency department with depression, PT.BROUGHT TO ED BY nk2WFOO FOR MHE. APPARENTLY SHE WAS HITTING HER [...] 400 mg intramuscular suspension,extended release syringe 400 alhziey53 days3. ibuprofen 400 mg Oral tablet 1 [...] Negative for drug dependence, alcohol dependence, auditoryhallucinations, xj1niikwk hallucinations, homicidal ideation. All other systems are negative.Exam:04:49 Head/Face: Normocephalic, atraumatic. Eyes: Pupils equal round andreactive to light, dk4qtncc-ilbwfd motions intact. Lids and lashes normal. Conjunctiva [...] 97.7(T); Pulse Ox 95% on R/A; Pain0/10; jl15:19yi363/2:32 Body Mass Index 37.12 (104.33 kg, 167.64 cm)ef110/1115:40 Pain Scale: Otwwqcu39:43 cywzvgxdqp5TET:03:21 Patient medically screened.na104:50 Data reviewed: vital signs, nurses notes, lab test result(s).na1102:31 Order name: Acetaminophen Level; Complete Time: 03:2:31 Order name: CBC with diff; Complete Time: 03::32 Order name: CMP; Complete Time: 03:2:32 Order name: COVID-19 PROFILE+LAB; Complete Time: 03:2:32 Order name: ETOH; Complete Time: 03:01kz061/1022:32 Order name: Bthdqdjrr3632:32 Order name: Salicylate Level; Complete Time: 03:2:32 Order name: Triage - Drug Ymaknnjb431/1022:32 Order name: BPhe0562:32 Order name: Urine HCG [facility] gokxs866/1022:32 Order name: Diet - Mental Health Tray (call dietary); Complete Time:22:43 2:32 Order name: Belongings List; Complete Time: 15::32 Order name: Document Weight and Height for BMI; Complete Time: 15:2:32 Order name: Mental Health Evaluation; Complete Time: 15:3:24 Order name: Medically Cleared for Eval by- Psychosocial, [place]iller (YE)un1Stjhixkfr Medications:15:42 Not Given (Patient Refused): ARIPiprazole 10 mg PO oosghe856:42 Not Given (Patient Refused): Loratadine 10 mg PO :42 Not Given (Patient Refused): Singulair Chewable Tablet 10 mg PO yttswp617:42 Not Given (Patient Refused): Propranolol 10 mg PO inqezz579:42 Not Given (Patient Refused): sertraline 50 mg PO dhcbtu066:42 Not Given (Physician Discretion): Topiramate 75 mg PO zsdlcd3Smtyqfumuq:Dispatcher [employer] Asnhul Loving MD MD afAl-Hussein, Nabeel, MD MD na1Hilborne, Erica, RN RN ef1 Name Value Range Interpretation Code Description Data Stephanie rce(s) Supporting Document(s) ID Date Data Source [id number] 04/21/2021 03:43:00 PM EDT [facility] [place] Nurse's NotesClaxton-Winding Cyp[facility] Medical Tootie terName: Yareli DuvallAge: 20 yrsSex: FemaleDOB: 2000MRN: [id number] Date: 04/20/2021Time: 22:29Account#: [id number] MD: NONE, - Per PatientDiagnosis: Adjustment disorder, unspecifiedPresentation:04/1022:30 Presenting complaint: Patient states: the build and deployment engineer got me because i wasbanging my head and ci0sqxachrzzi to tie something around my neck. International Travel Fever No.CoronavirusScreening: Have you received the COVID vaccine? Yes. Communicable DiseaseScreen:Negative for fever>/= 100 degrees Fahrenheit. Communicable disease screen isnegative.(-) rash or unusual skin lesion (-) travel/contact with traveler (-)respiratorysymptoms. Communication Speaks Estonian? Yes, is preferred language.22:30 Acuity: Triage 7es315:30 Acuity Assignment: Triage 7vv130:30 Method Of Arrival: Mxwkkdot7Qgrlmm Assessment:22:31 General: Appears in no apparent distress, [...] 400 mg intramuscular suspension,extended release syringe 400 vpfbmde60 days3. ibuprofen 400 mg Oral tablet 1 [...] threats or abuse. Denies injuries from another.Nutritional ub3rywsxfckn: No deficits noted. Offer of HIV testing: patient was previouslyofferedscreening. Fall Risk None identified.Assessment:22:35 General: Appears in no apparent distress, obese, unkempt, Behavior isagitated. Neuro: ae2Hwmkr of Consciousness is awake, alert, obeys commands. [...] is generated by a policeagency: Police. The qt6cgkmnti was referred for evaluation because Pt states "the build and deployment engineer got me becauseI wasbanging my head and threatened to tie something around my neck.".14:14 Subjective: The patients chief complaint is Pt presents to the ED withPolice due to em2the pt banging her head against the wall and threatening to tie somethingaround herneck at the [facility] facility. During MHE, pt denies SI/HI/ Pt denieshallucinations. Ptdenies self harm. Pt states she was just mad at [facility] facility due to being"pissed off"because she hates her current [facility] housing. Pt denies being verbally abusivetowardsstaff at [facility]. Pt denies threatening to tie something around her neck at [facility]. Pt states she would like to be discharged home as she is not suicidalandhomicidal. Pt has outpatient services at [facility] counselor [place]. Pt denies legal issues. Pt denies access toguns. PSAspoke with Nikky at [facility]. Nikky states the pt was banging her head in her roomand inthe hallway there at her residence. Nikky states the pt was verbally abusivetowardsstaff. Nikky states there needs to be a better plan for the pt as there seemsto be apattern of her going to the ED since she has been at [facility] since February 13 2021.Delusions are denied, Hallucinations are denied. Patient's mood is euthymic.14:22 Patient reports history of anxiety, Bipolar Disorder, Depression, Other:Borderline rh8Tbbrthaznoi Disorder. Mental Health Admissions: [facility], [facility]ist / Agency: [facility]. Living Environment: Family / Home Support: Fair The patient currentlylives kaley [facility] residence. The patient is single. Detox / Rehab Admissions: None. CurrentOutptAlcohol or Substance Abuse Services: None.14:24 Patient presents to Emergency Department with the following symptomswithin the past 2 nn6itrhr: self-mutilation, suicidal statements/threats. Objective: Patient iscooperative,Speech is normal. Affect is appropriate. Patient has mutilated themselves bycuttingright arm and left arm Cuts on arms from wire in face mask at [facility] facility twodaysago. Mental status exam: Patients [...] by phone with Dr Almaguer. DSM-V DX [place] I diagnosis:Adjustment D/OUnspecified [place] II diagnosis: Deferred [place] III diagnosis: None. [place] IVdiagnosis:poor coping skills. [place] Suicide Severity Rating Scale: Suicidal IdeationRating 0;Intensity of Ideations Rating 0; Suicidal Behavior Rating 0.14:35 Narrative Pt will be discharged back to [facility] per Dr. Almaguer with a diagnosisof Adjustment ln2Yrthuwlj. Pt can contract for safety. Pt denies SI/HI. Pt will follow up withtheiroutpatient provider, [facility] and upcomingappointmentswill be verified and expedited. Pt has been provided with the PSA and Re[employer]outphonenumbers. Pt has been instructed to take medications as prescribed and return [facility] ED should problems continue or worsen. Per Dr. Almaguer, pt will complete 5copingskills/5 goals[address]15:[address] Almaguer spoke with ED Dr. Strauss. Dr. Almaguer states the ptcapable of bl5cxlnbs to the ED whenever she feels suicidal and that she needs to. Dr. Alvarezuggestsinvolving Case Management and having [facility] make requests for other housingservices ifthe pt wishes not to live at [facility]. Dr. Almaguer states if the pt [...] 97.7(T); Pulse Ox 95% on R/A; Pain0/10; jl15:75tq782/1022:32 Body Mass Index 37.12 (104.33 kg, 167.64 cm)ef110/1115:40 Pain Scale: Iiwyajt11:43 utbedquumi6BS Course:04/1022:29 Patient arrived in ED.ef122:29 NONE, - Per Patient is Private Physician.ef122:30 Triage completed.ef122:35 Patient has correct armband on for positive identification. Bed in lowposition. Sitter ef1at bedside. Verbal reassurance given. Pillow given.22:35 Labs drawn. Collected by lab. Nasal Swab.ef1101103:21 Ramón Levy MD is Attending Physician.na106:52 Resting quietly.fw10:17 Appears to be sleeping.ef115:43 No Physician assisted procedures completed.lk1Qulpqaspyiqx Medications:15:42 Not Given (Patient Refused): ARIPiprazole 10 mg PO jlcynw982:42 Not Given (Patient Refused): Loratadine 10 mg PO dynqrf326:42 Not Given (Patient Refused): Singulair Chewable Tablet 10 mg PO fadztq177:42 Not Given (Patient Refused): Propranolol 10 mg PO tfzvne110:42 Not Given (Patient Refused): sertraline 50 mg PO ibdvcp817:42 Not Given (Physician Discretion): Topiramate 75 mg PO zwabzq0Btjwnkm:15:00 Discharge ordered by .af15:43 Disposition: Discharged to home ambulatory.ef115:43 Condition: stable, Provider notified of abnormal vital signs.15:43 Discharge instructions given to patient, Instructed on dischargeinstructions, followup and referral plans. Demonstrated understanding of instructions.15:43 Discharge Assessment: Patient verbalized understanding of dispositioninstructions.Patient able15:43 Patient left the ED.e n9Qbjvkmwmjv:Anshul Strauss MD MD afAl-Hussein, Nabeel, MD MD na1Hilborne, Erica RN RN ir8WuMixww, BerthaJOSE LUIS RN, Fayeanne, RN RN fwMoyer, Elissa rx3Ylvnncbwexl: (The following items were deleted from the chart)00:50 00:40 Reassessment: [facility] baptistw14:22 13:54 Referral Information: Evaluation referral is generated by zo7lm216:41 14:35 Narrative Pt will be discharged back to [facility] per Dr. Almaguer. Pt cancontract for mz4zxnabu. Pt denies SI/HI. [facility] and upcoming appointments will be verifiedandexpedited. Pt [...] threatening to tie somethingaround herneck at the [facility] facility. During MHE, pt denies SI/HI/ Pt denieshallucinations. Ptdenies self harm. Pt states she was just mad at [facility] facility due to being"pissed off"because she hates her current [facility] housing. Pt denies being verbally abusivetowardsstaff at [facility]. [facility] Pt states she would like to be discharged home as she is not suicidalandhomicidal. Pt has [facility] counselor [place]. Pt denies legal issues. Pt denies access toguns..Delusions are denied, Hallucinations are denied. Patient's mood is euthymic.em2 Name Value Range Interpretation Code Description Data Stephanie rce(s) Supporting Document(s) ID Date Data Source [id number] 04/19/2021 03:01:00 AM EDT [facility] [place] Name Value Range Interpretation Code Description Data Stephanie rce(s) Supporting Document(s) SALICYLATE < 1.7 mg/dL 0.0-20.0 [facility] ID Date Data Source [id number] 04/19/2021 03:01:00 AM EDT [facility] [place] Name Value Range Interpretation Code Description Data Stephanie rce(s) Supporting Document(s) ACETAMINOPHEN < 2.0 ug/mL 0-30 [facility] Date Data Source [id number] 04/19/2021 03:01:00 AM EDT [facility] [place] Name Value Range Interpretation Code Description Data Stephanie rce(s) Supporting Document(s) ETOH NONE DETECTED [facility] NONE DETECTED ID Date Data Source [id number] 04/19/2021 03:01:00 AM EDT [facility] [place] Name Value Range Interpretation Code Description Data Stephanie rce(s) Supporting Document(s) GLU 86 mg/dL 70-110 [facility] Patients taking Sulfasalazine may have f alsely depressedGlucose levels. Patients taking Sulfapyridine may havefalsely elevated Glucose levels. Patients should be drawnfor Glucose before the initial administration of eitherdrug. BUN 13 mg/dL 7-23 [facility] CRE 0.615 mg/dL 0.500-1.300 [facility] GFR > 60 mL/min [facility] CHLORIDE 113 mmol/L 99-110 [facility] NA 142 mmol/L 136-147 [facility] POTASSIUM 3.9 mmol/L 3.5-5.1 [facility] TCO2 24 mmol/L 20-33 [facility] ANION GAP 8.9 10.0-20.0 [facility] CA 8.6 mg/dL 8.3-10.7 [facility] ALKALINE PHOS 112 U/L 45-117 [facility] TP 7.3 g/dL 6.0-7.8 [facility] ALB 3.3 g/dL 3.5-5.0 [facility] ESRD Dialysis patient Albumin reference range: 2.9-4.4 g/dL GL 4.0 g/dL 2.3-3.5 [facility] A/G 0.8 1.0-2.5 [facility] T. BILIRUBIN 0.2 mg/dL 0.1-1.1 [facility] The Dimension Mason Total Bilirubin is n ot recommended forpatients undergoing treatment with eltrombopag (Promacta)due to the potential for falsely elevated results. ALTI 41 U/L 6-54 [facility] Patients taking Sulfasalazine and/or Sul fapyridine may havefalsely depressed ALT levels. Patients should be drawn forALT before the initial administration of either drug. AST 26 U/L 6-38 [facility] Patients taking Sulfasalazine and/or Sul fapyridine may havefalsely depressed AST levels. Patients should be drawn forAST before the initial administration of either drug. ID Date Data Source [id number] 04/19/2021 02:32:00 AM EDT [facility] [place] Name Value Range Interpretation Code Description Data Stephanie rce(s) Supporting Document(s) WBC 7.86 x10E3/uL 4.0-10.5 [facility] RBC 3.92 x10E6/uL 4.20-5.40 [facility] Hemoglobin 11.6 g/dL 12.0-16.0 [facility] Hematocrit 35.0 % 37.0-47.0 [facility] MCV 89.3 fL 81.0-99.0 [facility] MCH 29.6 pg 27.0-31.0 [facility] MCHC 33.1 g/dL 32.7-35.6 [facility] RDW 12.1 % 11.5-14.0 [facility] Platelet count 276 x10E3/uL 150-450 [facility] ital MPV 9.4 fl 6.9-9.5 [facility] Neutrophils 60.4 % 34-64 [facility] Lymphocytes 30.8 % 25-45 [facility] Monocytes 6.9 % 1.7-10.6 [facility] Eosinophils 1.1 % 0.4-7.0 [facility] Basophils 0.3 % 0.1-2.0 [facility] Imm. Gran. 0.5 % 0.1-2.0 [facility] Abs. Neutro. 4.75 x10E3/uL 1.2-7.6 [facility] [place] Abs. Lymph. 2.42 x10E3/uL 1.0-3.5 [facility] Abs. Metcalfe. 0.54 x10E3/uL 0.1-1.0 [facility] Abs. Eosin. 0.09 x10E3/uL 0.1-0.7 [facility] Abs. Baso. 0.02 x10E3/uL 0.0-0.1 [facility] Abs. Imm. Gran. 0.04 x10E3/uL 0.0-0.1 N [facility] spital ANRBC% 0 % 0 [facility] ID Date Data Source [id number] 04/19/2021 02:36:00 AM EDT [facility] [place] Name Value Range Interpretation Code Description Data Stephanie rce(s) Supporting Document(s) PCP VISTA NEG NEGATIVE [facility] MINIMUM LEVEL OF DETECTION IS 25 ng/ml BENZODIAZEPINES NEG NEGATIVE [facility] MINIMUM LEVEL OF DETECTION IS 200 ng/ml COCAINE VISTA NEG NEGATIVE [facility] MINIMUM LEVEL OF DETECTION IS 300 ng/ml AMPHETAMINES NEG NEGATIVE [facility] MINIMUM LEVEL OF DETECTION IS 1000 ng/ml BARBITURATES NEG NEGATIVE [facility] CUTOFF CONCENTRATION IS 200 ng/ml CANNABINOIDS NEG NEGATIVE [facility] CUTOFF CONCENTRATION IS 50 ng/ml METHADONE VISTA NEG NEGATIVE [facility] MINIMUM LEVEL OF DETECTION IS 300 ng/ml OPIATE VISTA NEG NEGATIVE [facility] MINIMUM DETECTION LEVEL IS 300 ng/ml ID Date Data Source [id number] 04/19/2021 02:16:00 AM EDT [facility] [place] Name Value Range Interpretation Code Description Data Stephanie rce(s) Supporting Document(s) HCG QUAL URINE Negative [facility] ID Date Data Source [id number] 04/19/2021 02:16:00 AM EDT [facility] [place] Name Value Range Interpretation Code Description Data Stephanie rce(s) Supporting Document(s) URINE COLOR Yellow N [facility] UAPR Cloudy N [facility] UGLU Negative NEGATIVE N [facility] URINE BILIRUBIN Negative NE[facility]IVE [facility] UKET Negative NEGATIVE [facility] USG 1.029 1.010-1.025 [facility] UBLO Negative NEGATIVE [facility] UpH 5.5 5.0-8.0 [facility] UPRO Negative Negative [facility] UUB 1.0 mg/dL 0.2-1.0 [facility] UNIT Negative Negative [facility] ULEU Negative Negative [facility] ID Date Data Source [id number] 04/19/2021 01:30:00 AM EDT [facility] Name Value Range Interpretation Code Description Data Stephanie rce(s) Supporting Document(s) LCOVID-[facility], [facility] This [facility] was ordered by [facility] and reported by [facility]. ID Date Data Source [id number] 04/19/2021 02:30:00 AM EDT [facility] Name Value Range Interpretation Code Description Data Stephanie rce(s) Supporting Document(s) COVID-19, CORDELL NEGATIVE NEGATIVE [facility] Methodology: Isothermal Nucleic Acid Amp lification for [...] Emergency Use Authorization. ID Date Data Source [id number] 04/19/2021 02:55:00 PM EDT [facility] Physician DocumentationClLeticia edical CenterName: Yareli DuvallAge: 20 yrsSex: FemaleDOB: 2000MRN: [id number] Date: 04/19/2021Time: 01:17Account#: [id number] 1Private MD: NONE, - Per PatientED Physician Chetan Grover Summary:04/19/21 14:31Discharge OrderedLocation: Home Self CareafProblem: an ongoing problemafSymptoms: are unchangedafCondition: StableafDiagnosis- Bipolar disorder, unspecifiedafFollowup:af- With: Private Physician- When: 1 week- Reason: Recheck today's complaintsDischarge Instructions:- BIPOLAR DISORDERaf- Discharge Summary [id number]:- Medication Reconciliationaf- Medication Reconciliation Form - 2nd CopyafHPI:04/907:14 This 20 yrs old White Female presents to ER via Police with complaints ofPsych Problem.br07:14 Obese 20-year-old female brought by PD for evaluation of self- harm.Please call to seen brpatient where she was seen slamming her head against the wall after attemptingto cutwrists w wire from [employer] mask. [facility]Historical:- Allergies: Haldol; Risperdal;- Home Meds:1. aripiprazole 10 mg oral tablet 1 tab daily2. aripiprazole 400 mg intramuscular suspension,extended release syringe 400 kzekuwg55 days3. ibuprofen 400 mg Oral tablet 1 [...] Temp 98.3; Pulse Ox 98% on R/A; Ktcfsy451.33 kg; pd2Igmlcf 5 ft. 6 in. ; Pain 0/10;14:44 BP 119 / 88; Pulse 88; Resp 16; Temp 98; Pulse Ox 98% ;kk201:24 Body Mass Index 37.12 (104.33 kg, 167.64 cm)kk301:24 Pain Scale: Dbsrpjz6OOP:01:33 Patient medically screened.br07:17 Data reviewed: vital signs, [...] name: ETOH; Complete Time: 03::37 Order name: Zmgghpaag127/0901:37 Order name: Salicylate Level; Complete Time: 03::37 Order name: Triage - Drug Screen; Complete Time: 03::37 Order name: UA; Complete Time: 03::37 Order name: Urine HCG Qualitative; Complete Time: 03::37 Order name: Diet - Mental Health Tray (call dietary):37 Order name: Belongings Kldmqf311:37 Order name: Document Weight and Height for GLOew049/0901:37 Order name: Mental Health Dvpusrjpihlo336/0901:37 Order name: Mental Health Level 2wx008:37 Order name: VS q ibofcjb486/0903:17 Order name: Consult Orders-Psychosocial, Sand Filler (.PSA)brDispensed Medications:03:37 Drug: B52 IM - (LORazepam 2 mg, diphenhydrAMINE 50 mg, HaloperidolLactate 5 mg) Route: cm4IM; Site: left vastus lateralis;Signatures:Dispatcher [employer] Anshul Loving MD MD afRoberts, Brandon, MD MD brKelly, Krista RN RN wj4CeuhynjrtWendy quintana RN RN cm4 Name Value Range Interpretation Code Description Data Stephanie rce(s) Supporting Document(s) ID Date Data Source [id number] 04/19/2021 02:55:00 PM EDT [facility] [place] [facility] terName: Yareli DuvallAge: 20 yrsSex: FemaleDOB: 2000MRN: [id number] Date: 04/19/2021Time: 01:17Account#: [id number] 1Private MD: NONE, - Per PatientDiagnosis: Bipolar disorder, unspecifiedPresentation:04/901:18 Presenting complaint: Patient states: "Well, the build and deployment engineer came because I wasbanging my pe8dmkx on the wall and I wasn't being suicidal.". Coronavirus Screening: Have youbeendiagnosed with COVID-19 in the past 30 days? no Are you currently on quarantinebyPublic Health? no Flu-like symptoms reported in the last 14 days: no. Have youhadclose contact with confirmed or suspected COVID-19 case? no Do you live in asettingwhere a large of amount of people live, such as longterm, family care,intermediate, etc?yes. Have you traveled to a location with widespread or ongoing COVID-19communityspread or outside of [facility]? no Have you traveled internationally or hadcontact withsomeone that has traveled and has been ill in the past 3 weeks? no Have youreceivedthe COVID vaccine? Yes Sophia unknown. Communication Speaks Estonian? Yes, ispreferredlanguage. Language Line Services needed? No Are TDD needed? No. Best learningmethod:discussion. Learning barriers: none identified.01:18 Acuity: Triage 8ug562:18 Method Of Arrival: Spoaorwr391:19 Acuity Assignment: Triage 8ad287:21 International Travel Fever No. Communicable Disease Screen: Negative forfever>/= 100 cx8ddkqikv Fahrenheit. Communicable disease screen is negative. (-) rash orunusual skinlesion (-) travel/contact with traveler (-) respiratory symptoms.Triage Assessment:01:24 General: Appears unkempt, well nourished, Behavior is appropriate forage, cooperative, hh2Omonlg fever, chills. Sepsis Screening: (1)Signs/symptoms infection Sepsis isnotsuspected. Pain: Denies pain. PSS-3 Now I'm going to ask you some questionsthat we askeveryone treated here, no matter what problem they are here for. [facility] and it helps us to [...] 400 mg intramuscular suspension,extended release syringe 400 lhoandz94 days3. ibuprofen 400 mg Oral tablet 1 [...] threats or abuse. Denies injuries from another.Nutritional rp8rvzevmozy: No deficits noted. Offer of HIV testing: patient was previouslyofferedscreening. Fall Risk None identified.Assessment:01:35 Reassessment: No changes from previously documented assessment.kk301:54 Reassessment: Patient refused to have labs drawn, explained mental healthprocess and kk3the steps necessary to be medically cleared, patient still refused, PSA and EDprovidermade aware.02:22 Reassessment: patient starts refusing blood work and screaming at staff.OPD called to uu1ijnggob, patient is known to be aggressive. Patient gets aggitated when thepolice gethere and continues to scream at staff, code orange called. Patient agrees toget bloodwork done. .03:38 Reassessment: patient tries to elope twice, walking out to the ramp.Patient was rk2kxixltykpq and followed out to the ramp, patient did come back inside bothtimes.Patient begins hitting her head off the wall and not cooperating with staff andyelling/ calling staff vulgar names. Patient has no self control at this timescreamingin the ER. Vanesa ramos called..03:52 Reassessment: Patient placed in 4 point restraints at 0342 due tocontinued lack of wh8lxwm control.04:33 Reassessment: patient released from restraints at 0433.cm404:46 Reassessment: Patient appears in no apparent distress at this time.cm407:30 Reassessment: Patient appears in no apparent distress at this time. Nochanges from my2jjchelmmhl documented assessment. Patient sleeping.09:57 Reassessment: Patient appears in no apparent distress at this time. Nochanges from qg5xszuctlrye documented assessment. Patient sleeping. .Psychosocial:07:26 SAFE Act [...] facilities last being three days ago at [facility]. Ptreportsthat she has been and eating and sleeping well. Pt [facility] Pt states that she does not feelshe needsinpatient services at this time. Pt reports she feels she would be safe to bedischarged home at this time back to [facility]. Delusions are denied, Hallucinationsaredenied. Patient's mood is depressed.12:00 Patient reports history of anxiety, Bipolar Disorder, Depression, self-mutilation, gv43Ypuffr Health Admissions: multiple last yash ng at [facility] two days ago CurrentOutpatient Mental Health Services: Psychiatrist / [facility].LivingEnvironment: Family / Home Support: good The patient currently lives in a TLSapartment.12:04 Patient presents to Emergency Department with the following symptomswithin the past 2 lb51wcvnn: Anger, anxiety, depressed mood, poor concentration, poor impulsecontrol,suicidal ideation with no plan.12:06 Objective: Patient is cooperative, Speech is normal. Affect isappropriate. Mental op63dcbxem exam: Patients appearance is appropriate, Patient's behavior [...] patient's status at 13:33, ED MDnotified of ue86svyyqmht status at 13:33. Disposition: Medically cleared for disposition by [facility].Psychiatric Consult is performed by phone with Dr Strauss The patient has asafedestination which is Pt will be discharged to [facility] per Dr. Canela. Pt cancontract forsafety and denies SI/HI. Pt will follow up with outpatient next week. Pt willtakemedications as prescribed. Pt provided contact information for JAN Delilah. Ptwill come to the ED if problems continue or worsen. DSM-V DX [place] I diagnosis:BipolarD/O, Unspecified [place] II diagnosis: Deferred [place] III diagnosis: None. [place] IVdiagnosis: poor impulse control. The patient is not a flight attendant inflight services ormilitarydependent. [place] Suicide Severity Rating Scale: Suicidal Ideation Rating 0;Intensity of Ideations Rating 0; Suici reji Behavior Rating 0.Psych:01:28 Subjective: Patient's mood is euphoric, Delusions are denied,Hallucinations are denied sv3Pygryl thoughts of suicide. Denies suicidal plan. Objective: [...] Temp 98.3; Pulse Ox 98% on R/A; Xfxhct828.33 kg; hi9Egvibf 5 ft. 6 in. ; Pain 0/10;14:44 BP 119 / 88; Pulse 88; Resp 16; Temp 98; Pulse Ox 98% ;kk201:24 Body Mass Index 37.12 (104.33 kg, 167.64 cm)kk301:24 Pain Scale: Xpxsstg5HQ Course:01:17 Patient arrived in ED.kk301:18 NONE, - Per Patient is Private Physician.kk301:19 Triage completed.kk301:30 Ratna Barbosa RN is Primary Nurse.kk301:33 Zeeshan Grover MD is Attending Physician.br01:35 Urine collected. Clean catch specimen. Nasal Swab Collected by Nurse.kk301:40 Patient has correct armband on for positive identification. Placed ingown. Bed in low eh8kpelvrjk. Call light in reach. Side rails up [...] has no functional deficits.14:55 Patient left the ED.em8Hntsvchtfb:Anshul Strauss MD MD afKnight, Zakia, RN RN to4Neda, Zeeshan Kennedy MD MD brKelly, Krista, RN RN qu0Wknjsocv, Usha carrollxq6YbwdcvztaWendy quintana, RN RN uc5Hdhf, Olivia, RN RN sw2 Name Value Range Interpretation Code Description Data Stephanie rce(s) Supporting Document(s) ID Date Data Source [id number] 04/17/2021 10:05:00 AM EDT [facility] Name Value Range Interpretation Code Description Data Stephanie rce(s) Supporting Document(s) Respiratory specimen severe acute respir atory syndrome coronavirus 2 (SARS-CoV-2) RNA Negative (qualifier value) [facility] This lab was ordered by [facility] and reported by . ID Date Data Source [id number] 04/17/2021 10:35:00 AM EDT [facility] Name Value Range Interpretation Code Description Data Stephanie rce(s) Supporting Document(s) SARS-CoV-2 RNA Negative Normal (applies to non-numeric r esults) [facility] Negative results should be treated as pr [...] Certificate of Accreditation. Factsheets for healthcare providers: https://www.fda.gov/media/907434/download Factsheets for patients: https://www.fda.gov/media/446616/download The ID NOW Instrument is a rapid molecular in vitro diagnostic test utilizing an isothermal nucleic acid amplification technology intended for the qualitative detection of nucleic acid from the SARS-CoV-2 viral RNA. THIS IS A STATE REPORTABLE COMMUNICABLE DISEASE. Manual entry verified by Megan Murphy 04/17/21 1034 ID Date Data Source [id number] 04/17/2021 10:56:00 AM EDT [facility] Name Value Range Interpretation Code Description Data Stephanie rce(s) Supporting Document(s) HCG,Ur Negative Normal (applies to non-numeric results) [facility] ID Date Data Source [id number] 04/17/2021 02:47:00 AM EDT [facility] Name Value Range Interpretation Code Description Data Stephanie rce(s) Supporting Document(s) UDS Benzodiazepines Screen Negative Normal (applies to n on-numeric results) [facility] UDS Cocaine Screen Negative Normal (applies to non-numer ic results) [facility] UDS Ampetamine Screen Negative Normal (applies to non-nu meric results) [facility] UDS Cannabinoids Screen Negative Normal (applies to non- numeric results) [facility] UDS Opiates Screen Negative Normal (applies to non-numer ic results) [facility] UDS Barbiturates Screen Negative Normal (applies to non- numeric results) [facility] Threshold Levels Benzodiazepine 200 ng/mL Cocaine 300 ng/mL Amphetamines 1000 ng/mL Cannabinoids (THC) 50 ng/mL Opiates 300 ng/mL Barbiturates 200 ng/mL All positive findings are presumptive and unconfirmed. Confirmation of positive results are performed only at request of provider. Unconfirmed results must not be used for non-medical purposes (i.e. preemployment and legal purposes) ID Date Data Source [id number] 04/17/2021 02:46:00 AM EDT [facility] Collected By: Nurse Initials: JT Time Collected: 214 Collected By: Nurse Initials: JT Time Collected: 214 Name Value Range Interpretation Code Description Data Stephanie rce(s) Supporting Document(s) Color,Urine Colorl-Dk Y Normal (applies to non-numeric res ults) [facility] Clarity,Urine Clear Normal (applies to non-numeric re sults) [facility] Specific [place],Urine 1.005-1.030 [facility] pH,Urine 5.0-8.0 Normal (applies to non-numeric resul ts) [facility] Protein,Urine Negative Normal (applies to non-numeric re sults) [facility] Glucose,Urine Negative Normal (applies to non-numeric re sults) [facility] Ketones,Urine Negative Normal (applies to non-numeric re sults) [facility] Blood,Urine Negative [facility] Bilirubin,Urine Negative [facility] pital Urobilinogen,Urine 0.2-1.0 Normal (applies to non-numer ic results) [facility] Leukocyte Esterase,Urine Negative [facility] Nitrite,Urine Negative Normal (applies to non-numeric re sults) [facility] ID Date Data Source [id number] [facility]/17[facility]21 [facility] By: Nurse Initials: JT Time Collected: 214 Collected By: Nurse Initials: JT Time Collected: 214 Name Value Range Interpretation Code Description Data Stephanie rce(s) Supporting Document(s) RBC,Urine None Seen [facility] WBC,Urine None Seen [facility] Casts,Urine None Seen Normal (applies to non-numeric resu lts) [facility] Squamous Cells,Urine None Seen [facility] Amorphous Sediment,Urine None Seen [facility] Bacteria,Urine None Seen [facility] ital ID Date Data Source [id number] 04/17/2021 02:29:00 AM EDT [facility] Name Value Range Interpretation Code Description Data Stephanie rce(s) Supporting Document(s) Sodium 139 mmol/L 136-145 Normal (applies to non-numeric resul ts) [facility] Potassium 3.5-5.1 Below low normal [facility] spital Chloride 102 mmol/L 98-107 Normal (applies to non-numeric resul ts) [facility] Carbon Dioxide CO2 21-32 Normal (applies to non-numer ic results) [facility] Anion Gap 5.0-16.0 Normal (applies to non-numeric resul ts) [facility] BUN 12 mg/dL 7-18 Normal (applies to non-numeric results) [facility] Creatinine,Serum 0.7-1.2 Normal (applies to non-numeric results) [facility] GFR >60 Normal (applies to non-numeric results) [facility] Glucose Level 99 mg/dL 60-99 Normal (applies to non-numeric re sults) [facility] Reference range is only applicable when patient is fasting Note the following drug interference: Sulfasalazine Sulfapyridine Can see falsely depressed Can see falsely elevated result with up to 17% results with up to 11% decrease in measurement increase in measurement Recommend patients be collected for this test prior to administration of either drug. Calcium 8.5-10.1 Normal (applies to non-numeric resul ts) [facility] Bilirubin,Total 0.1-1.9 Normal (applies to non-numeric results) [facility] SGOT(AST) 26 U/L 15-37 Normal (applies to non-numeric resul ts) [facility] Note the following drug interference: Sulfasalazine Sulfapyridine Can see falsely depressed Can see falsely elevated result with up to 10% results with up to 10% decrease in measurement increase in measurement Recommend patients be collected for this test prior to administration of either drug. SGPT(ALT) 45 U/L 12-78 Normal (applies to non-numeric resul ts) [facility] Note the following drug interference: Sulfasalazine Sulfapyridine Can see falsely depressed Can see falsely elevated result with up to 29% results with up to 10% decrease in measurement increase in measurement Recommend patients be collected for this test prior to administration of either drug. Alkaline Phosphatase 133 U/L 38-126 Above high normal [facility] can increase Alkaline Phosp le vels up to 2 times the normal adult value. Normal values for children and adolescents are 2 to 3 times the normal adult value. Total Protein 6.0-8.2 Normal (applies to non-numeric re sults) [facility] Albumin Level 3.4-5.0 Normal (applies to non-numeric re sults) [facility] ID Date Data Source [id number] 04/17/2021 02:29:00 AM EDT [facility] Name Value Range Interpretation Code Description Data Stephanie rce(s) Supporting Document(s) Salicylate 2.8-20.0 Below low normal [facility] ID Date Data Source [id number] 04/17/2021 02:29:00 AM EDT [facility] Name Value Range Interpretation Code Description Data Stephanie rce(s) Supporting Document(s) Troponin I 0.000-0.056 Normal (applies to non-numeric resu lts) [facility] ID Date Data Source [id number] 04/17/2021 02:29:00 AM EDT [facility] Name Value Range Interpretation Code Description Data Stephanie rce(s) Supporting Document(s) Acetaminophen 10.0-30.0 Below low normal [facility] ID Date Data Source [id number] 04/17/2021 02:29:00 AM EDT [facility] Name Value Range Interpretation Code Description Data Stephanie rce(s) Supporting Document(s) Magnesium 1.8-2.4 Normal (applies to non-numeric resul ts) [facility] ID Date Data Source [id number] 04/17/2021 02:28:00 AM EDT [facility] Name Value Range Interpretation Code Description Data Stephanie rce(s) Supporting Document(s) Ethanol Less than 10.0 Normal (applies to non-numeric r esults) [facility] ID Date Data Source [id number] 04/17/2021 02:07:00 AM EDT [facility] Name Value Range Interpretation Code Description Data Stephanie rce(s) Supporting Document(s) White Blood Count 3.5-10.5 Normal (applies to non-numeri c results) [facility] Red Blood Count 3.90-5.00 Normal (applies to non-numeric results) [facility] Hemoglobin 12.0-15.5 Normal (applies to non-numeric resul ts) [facility] Hematocrit 34.9-44.5 Normal (applies to non-numeric resul ts) [facility] Mean Corpuscular Volume 81.2-95.1 Normal (applies to non- numeric results) [facility] Mean Corpuscular Hgb 25.6-32.2 Normal (applies to non-num deena results) [facility] Mean Corpuscular Hgb Conc 32.0-36.0 Normal (applies to no n-numeric results) [facility] Red Cell Distribution Width 11.9-15.5 Normal (appli es to non-numeric results) [facility] Platelet Count 285 x10 3/uL 150-450 Normal (applies to non-numeric results) [facility] Mean Platelet Volume 9.4-12.4 Normal (applies to non-num deena results) [facility] Neutrophils% (Auto) 31.0-71.0 Normal (applies to non-nume frank results) [facility] Lymphocytes% (Auto) 20.0-55.0 Normal (applies to non-nume frank results) [facility] Monocytes% (Auto) 4.0-12.0 Normal (applies to non-numeri c results) [facility] Eosinophils% (Auto) 1.0-8.0 Normal (applies to non-nume frank results) [facility] Basophils% (Auto) 0.0-2.0 Normal (applies to non-numeri c results) [facility] Immature Granulocytes% (Auto) 0.0-2.0 Normal (alexander lies to non-numeric results) [facility] Neutrophils# (Auto) 1.50-6.20 Above high normal [facility] Lymphocytes# (Auto) 1.20-4.00 Normal (applies to non-nume frank results) [facility] Monocytes# (Auto) 0.00-0.90 Normal (applies to non-numeri c results) [facility] Eosinophils# (Auto) 0.00-0.50 Normal (applies to non-nume frank results) [facility] Basophils# (Auto) 0.00-0.20 Normal (applies to non-numeri c results) [facility] Immature Granulocytes# (Auto) 0.00-7.00 No rmal (applies to non-numeric results) [facility] ID Date Data Source [id number] 04/14/2021 03:02:00 PM EDT [address] CONSULTPATIENT NAME: YARELI HATCH MR#: [id number] PHYSICIAN:AUTHOR: Surendra SMITH,P. DATE: RM#: ERPATIENT : [...] her suicidal.So, then she was taken to [facility] in [facility]. While she was in the [facility],she claims she escaped from the hospital at which point a pickup order wasissued then she was brought to [facility] yesterday. I saw her today int ER.In my evaluation today which I conducted with Gloria, administrative assistant coordinator and2 students from [facility] I found her to be not hostile, [...] rce(s) Supporting Document(s) ID Date Data Source [id number] 04/13/2021 10:06:00 PM EDT [facility] Name Value Range Interpretation Code Description Data Stephanie rce(s) Supporting Document(s) WBC 11.79 x10E3/uL 4.0-10.5 [facility] RBC 4.27 x10E6/uL 4.20-5.40 [facility] Hemoglobin 12.5 g/dL 12.0-16.0 [facility] Hematocrit 37.7 % 37.0-47.0 [facility] MCV 88.3 fL 81.0-99.0 [facility] MCH 29.3 pg 27.0-31.0 [facility] MCHC 33.2 g/dL 32.7-35.6 [facility] RDW 12.4 % 11.5-14.0 [facility] Platelet count 262 x10E3/uL 150-450 [facility] ital MPV 10.3 fl 6.9-9.5 [facility] Neutrophils 75.6 % 34-64 [facility] Lymphocytes 17.2 % 25-45 [facility] Monocytes 5.9 % 1.7-10.6 [facility] Eosinophils 0.6 % 0.4-7.0 [facility] Basophils 0.3 % 0.1-2.0 [facility] Imm. Gran. 0.4 % 0.1-2.0 [facility] Abs. Neutro. 8.92 x10E3/uL 1.2-7.6 [facility] Abs. Lymph. 2.03 x10E3/uL 1.0-3.5 [facility] Abs. Metcalfe. 0.69 x10E3/uL 0.1-1.0 [facility] Abs. Eosin. 0.07 x10E3/uL 0.1-0.7 [facility] Abs. Baso. 0.03 x10E3/uL 0.0-0.1 [facility] Abs. Imm. Gran. 0.05 x10E3/uL 0.0-0.1 [facility] spital ANRBC% 0 % 0 [facility] ID Date Data Source [id number] 04/13/2021 09:38:00 PM EDT [facility] Name Value Range Interpretation Code Description Data Stephanie rce(s) Supporting Document(s) GLU 95 mg/dL 70-110 [facility] Patients taking Sulfasalazine may have f alsely depressedGlucose levels. Patients taking Sulfapyridine may havefalsely elevated Glucose levels. Patients should be drawnfor Glucose before the initial administration of eitherdrug. BUN 14 mg/dL 7-23 [facility] CRE 0.672 mg/dL 0.500-1.300 [facility] GFR > 60 mL/min [facility] CHLORIDE 110 mmol/L 99-110 [facility] NA 141 mmol/L 136-147 [facility] POTASSIUM 4.5 mmol/L 3.5-5.1 [facility] TCO2 23 mmol/L 20-33 [facility] ANION GAP 12.5 10.0-20.0 [facility] CA 8.6 mg/dL 8.3-10.7 [facility] ALKALINE PHOS 125 U/L 45-117 [facility] TP 8.0 g/dL 6.0-7.8 [facility] ALB 3.6 g/dL 3.5-5.0 [facility] ESRD Dialysis patient Albumin reference range: 2.9-4.4 g/dL GL 4.4 g/dL 2.3-3.5 [facility] A/G 0.8 1.0-2.5 [facility] T. BILIRUBIN 0.3 mg/dL 0.1-1.1 [facility] The Dimension Mason Total Bilirubin is n ot recommended forpatients undergoing treatment with eltrombopag (Promacta)due to the potential for falsely elevated results. ALTI 51 U/L 6-54 [facility] Patients taking Sulfasalazine and/or Sul fapyridine may havefalsely depressed ALT levels. Patients should be drawn forALT before the initial administration of either drug. AST 32 U/L 6-38 [facility] Patients taking Sulfasalazine and/or Sul fapyridine may havefalsely depressed AST levels. Patients should be drawn forAST before the initial administration of either drug. ID Date Data Source [id number] 04/13/2021 09:38:00 PM EDT [facility] Name Value Range Interpretation Code Description Data Stephanie rce(s) Supporting Document(s) SALICYLATE < 1.7 mg/dL 0.0-20.0 [facility] ID Date Data Source [id number] 04/13/2021 09:38:00 PM EDT [facility] Name Value Range Interpretation Code Description Data Stephanie rce(s) Supporting Document(s) ACETAMINOPHEN < 2.0 ug/mL 0-30 [facility] Date Data Source [id number] 04/13/2021 09:38:00 PM EDT [facility] Name Value Range Interpretation Code Description Data Stephanie rce(s) Supporting Document(s) ETOH 0.007 g/dL NONE DETECTED [facility] ID Date Data Source [id number] 04/13/2021 08:47:00 PM EDT [facility] Name Value Range Interpretation Code Description Data Stephanie rce(s) Supporting Document(s) LCOVID-19, CORDELL NEGATIVE [facility] This lab was ordered by [facility] and reported by [facility]. ID Date Data Source [id number] 04/13/2021 09:21:00 PM EDT [facility] Name Value Range Interpretation Code Description Data Stephanie rce(s) Supporting Document(s) COVID-19, CORDELL NEGATIVE NEGATIVE [facility] Methodology: Isothermal Nucleic Acid Amp lification for [...] Emergency Use Authorization. ID Date Data Source [id number] 04/13/2021 09:48:00 PM EDT [facility] Name Value Range Interpretation Code Description Data Stephanie rce(s) Supporting Document(s) PCP VISTA NEG NEGATIVE [facility] MINIMUM LEVEL OF DETECTION IS 25 ng/ml BENZODIAZEPINES NEG NEGATIVE [facility] al MINIMUM LEVEL OF DETECTION IS 200 ng/ml COCAINE VISTA NEG NEGATIVE [facility] MINIMUM LEVEL OF DETECTION IS 300 ng/ml AMPHETAMINES NEG NEGATIVE [facility] al MINIMUM LEVEL OF DETECTION IS 1000 ng/ml BARBITURATES NEG NEGATIVE [facility] al CUTOFF CONCENTRATION IS 200 ng/ml CANNABINOIDS NEG NEGATIVE [facility] al CUTOFF CONCENTRATION IS 50 ng/ml METHADONE VISTA NEG NEGATIVE [facility] al MINIMUM LEVEL OF DETECTION IS 300 ng/ml OPIATE VISTA NEG NEGATIVE [facility] MINIMUM DETECTION LEVEL IS 300 ng/ml ID Date Data Source [id number] 04/13/2021 09:38:00 PM EDT [facility] Name Value Range Interpretation Code Description Data Stephanie rce(s) Supporting Document(s) URINE COLOR Yellow [facility] UAPR Turbid [facility] UGLU Negative NEGATIVE [facility] URINE BILIRUBIN Negative NEGATIVE [facility] al UKET Negative NEGATIVE [facility] USG 1.017 1.010-1.025 [facility] UBLO Negative NEGATIVE [facility] UpH 7.5 5.0-8.0 [facility] UPRO Negative Negative [facility] UUB 1.0 mg/dL 0.2-1.0 [facility] UNIT Negative Negative [facility] ULEU Trace Negative [facility] ID Date Data Source [id number] 04/13/2021 09:38:00 PM EDT [facility] Name Value Range Interpretation Code Description Data Stephanie rce(s) Supporting Document(s) URINE RBC 0-2 RBCs/HPF NONE SEEN [facility] URINE WBC 0-2 WBCs/HPF NONE SEEN [facility] URINE BACTERIA Few NONE SEEN [facility] URINE EPI. Many NONE SEEN [facility] URINE CRYSTAL MANY AMORPHOUS NONE SEEN [facility] pital ID Date Data Source [id number] 04/13/2021 09:38:00 PM EDT [facility] Name Value Range Interpretation Code Description Data Stephanie rce(s) Supporting Document(s) HCG QUAL URINE Negative Negative [facility] l ID Date Data Source [id number] 04/14/2021 04:43:00 PM EDT [facility] Physician DocumentationClaxlexy-Cristina Arin edical CenterName: Yareli Mejiage: 20 yrsSex: FemaleDOB: 2000MRN: [id number] Date: 04/13/2021Time: 20:28Account#: [id number] MD: NONE, - Per PatientED Physician Santiago RajanDisposition Summary:04/14/21 16:06Discharge OrderedLocation: Home Self Qylqwz7Rydzmdv: ggnljtooi5Qarvsmkm: are uqjreoabctw7Sqgwexyvj: Bojmdoqf9Khzqyqjbc- Major depressive disorder, recurrent, mkxupmoxnqnrs6Ynuqpjvx:rf2- With: Private Physician- When: 2 - 3 days- Reason: Recheck today's complaints, Continuance of careDischarge Instructions:- Discharge Summary Lmmwfko09- HYDORJJMCAhw4Uqxcy:- Medication Reconciliationrf2- Medication Reconciliation Form - [address] [place], [place] [address]HPI:04/320:42 This 20 yrs old White Female presents to ER via Police with complaints ofPsych Problem.th420:42 Associated signs and symptoms: Pertinent negatives: abdominal pain, chestpain, fever, mz3ftcprtsc, nausea, shortness of breath, vomiting. [facility] Patient is well-known to the ER. She has been seenmany timesin the past for the same. She was last here on April 09 and was admitted atthattime. Patient reports that [facility] the lastcou[facility] dayswith suicidal ideation. She [...] 400 mg intramuscular suspension,extended release syringe 400 qvyzxze45 days3. ibuprofen 400 mg Oral tablet 1 [...] Eyes: Negative for acute changes.ENT: Negative for rg5osulx discharge, rhinorrhea, sinus congestion. Neck: Negative for [...] 53.26 (149.69 kg, 167.64 cm)jw523:48 Pain Scale: Ottujwl316/0411:45 Pain Scale: Eszsiid514:43 Pain Scale: AdulttlmMDM:04/320:34 Patient medically screened.th410/0406:41 Data reviewed: vital signs, nurses notes, lab test result(s). ED course:Patient gc7iodnmgiw stable in the ER. Patient here for mental health evaluation as above.Case isendorsed to Dr. Rajan at change of shift pending PSA evaluation disposition.Patient ismedically clear and has been cooperative..07:32 Data reviewed: lab test result(s), CBC, drug level(s), acetaminophen,alcohol, eu2oablmdmwpx, electrolytes, hepatic panel, urinalysis, urine drug screen,COVID-19.Transition of care: Care assumed from Nils Argueta MD.16:06 ED course: Patient being recommended for discharge home by Dr. Patten with adiagnosis of jg8sdvymyappc.04/320:39 Order name: Acetaminophen Level; Complete Time: 21:70bu646/0320:39 Order name: CBC with diff; Complete Time: 07:90gt137/0407:33 Interpretation: Abnormal: WBC 11.79; Mild leukocytosis.rf0:39 Order name: CMP; Complete Time: 21:04rs1260:39 Order name: COVID-19 PROFILE+LAB; Complete Time: 21:89jk544:39 Order name: ETOH; Complete Time: 21:52ae333:39 Order name: Glucose; Complete Time: 07:68av456/0407:32 Interpretation: Within normal limits.rf0:39 Order name: Salicylate Level; Complete Time: ::39 Order name: Triage - Drug Screen; Complete Time: ::39 Order name: UA; Complete Time: 21:94sf4520:39 Order name: Urine HCG Qualitative; Complete Time: :42yd729:39 Order name: Diet - Mental Health Tray (call dietary); Complete Time:23:49 0:39 Order name: Belongings List; Complete Time: 05:66ps516:39 Order name: Document Weight and Height for BMI; Complete Time: 23:83tm7960:39 Order name: Mental Health Evaluation; Complete Time: 23:75cg0640:39 Order name: Mental Health Level 3; Complete Time: 23:0:39 Order name: VS q shift; Complete Time: 23:1:49 Order name: Medically Cleared for Eval by-Psychosocial, [place] (.PSA)iv5Dgjvdeogc Medications:04/322:16 Drug: Ibuprofen 600 mg [ibuprofen 600 mg tablet (1 tabs)] Route: PO;kk223:48 Follow up: Pain 09/18 Sjuahsu498/0410:16 Drug: Propranolol 10 mg Route: PO;ef110:46 Follow up: Response: No adverse sormyrgfww128:16 Drug: sertraline 50 mg Route: PO;ef110:46 Follow up: Response: No adverse hrwqjgdjlo401:16 Drug: Topiramate 75 mg Route: PO;ef110:45 Follow up: Response: No adverse sfsfqskyoa632:16 Drug: Loratadine 10 mg Route: PO;ef110:45 Follow up: Response: No adverse tarkxvnphl957:17 Drug: ARIPiprazole 10 mg Route: PO;ef110:46 Follow up: Response: No adverse uitznsqaym797:45 Drug: Acetaminophen Tablet 650 mg Route: PO;ef111:45 Follow up: Pain 0/10 Wqdavjn4Rlvanxcjxd:Disp Zakia Buchanan RN RN ju8QybkaauNils bansal MD MD sn1DafmaFortunato RN RN yh6VgwufzxsAmi dang RN RN rn4Xshgd, MD SARAH Henderson rf2 Name Value Range Interpretation Code Description Data Stephanie rce(s) Supporting Document(s) ID Date Data Source [id number] 04/14/2021 04:43:00 PM EDT [facility] Nurse's NotesCl[facility]Sy[facility] terName: Yareli DuvallAge: 20 yrsSex: FemaleDOB: 2000MRN: [id number] Date: 04/13/2021Time: 20:28Account#: [id number] MD: NONE, - Per PatientDiagnosis: Major depressive disorder, recurrent, unspecifiedPresentation:04/320:29 Presenting complaint: Patient states: Was at [facility]. ky1Djjgqps to this ED by [facility]. Patient reports that she escaped from the [facility]. International Travel Fever No. Coronavirus Screening: Have you beendiagnosed with COVID-19 in the past 30 days? no Are [facility] currently [facility]? no Flu-like symptoms reported in the last 14 days: no. Have youhadclose contact with confirmed or suspected COVID-19 case? no Do you live in asettingwhere a large of amount of people live, such as longterm, family care,intermediate, etc?yes. Have you traveled to a location with widespread or ongoing COVID-19communityspread or outside of [facility]? no Have you traveled internationally or hadcontact withsomeone that has traveled and has been ill in the past 3 weeks? no Have youreceivedthe COVID vaccine? Yes Sophia x 1 dose. Communicable Disease Screen: Negativeforfever>/= 100 degrees Fahrenheit. Communicable disease screen is negative. (-)rash orunusual skin lesion (-) travel/contact with traveler (-) respiratory symptoms.Communication Speaks Estonian? Yes, is preferred language.20:29 Acuity: Triage 8fa505:29 Method Of Arrival: Rxgdzrzr687:30 Acuity Assignment: Triage 8mb0Dnzwpz Assessment:20:31 General: Appears in no apparent distress, [...] 400 mg intramuscular suspension,extended release syringe 400 ugtdoid99 days3. ibuprofen 400 mg Oral tablet 1 [...] threats or abuse. Denies injuries from another.Nutritional cj1fplrrwkva: No deficits noted. Offer of HIV testing: [...] appears in no apparent distress at this time.ba7Bkeoctjpfeqz:04/322:01 Mental health consult is initiated at 22:01.sm822:12 SAFE Act Report Not Completed. Intervention: Observation Level 3.Referral Information: bo5Cvcelutkko referral is generated by a police agency: [employer]. The patient wasreferred forevaluation because suicidal ideations.22:23 Subjective: The patients chief complaint is [place] pe[place]ijqpxpdfz. As PSA was going into her room pt was tapping her head off the wall.Pt wasdischarged from our unit on Wednesday (04/11), she then went to [facility] late Wednesday night. Pt had walked out of [facility] and [facility] [...] has a long history of mental [facility]altht[facility] facilities. She has a history of Anxiety, Bipolar, Depression, andBPD. Pt hasa history of reported suicide attempts by overdosing. Pt denies hallucinations.Pt doesnot present with any delusional thoughts. Delusions are denied, Hallucinationsaredenied. Patient's mood is depressed, Having thoughts of suicide. Deniessuicidal plan.homicide: denies plan. Homicidal thoughts directed towards mother.22:30 Narrative PSA spoke to Dulce at [facility] ([phone]). She states that itis "the same sm8old thing" as to why the pt is in the ED. She states that the pt was dischargedfromour unit then went to [facility] for suicidal ideations. She states that thept madeit back to them in scrubs and stated that she asked [facility] what wouldhappen if shewalked out which they told her that they would have to call the police. Policethenshowed up at [facility] and brought her to us.22:33 Patient reports history of anxiety, Bipolar Disorder, Depression, self-mutilation, zn8mhyzfla attempt: pt reports multiple by overdosing Mental Health Admissions:multipletimes at multiple facilities Current Outpatient Mental Health Services:[facility]iat[facility] [place]. Living Environment: Family / HomeSupport[facility] in a [facility] apartment. The patient is single. Detox /RehabAdmissions: None. Current Outpt Alcohol or Substance Abuse Services: None.22:34 Patient presents to Emergency Department with the following symptomswithin the past 2 tb4ztdtp: suicidal ideation with no plan. Patient presents [...] patient status is not currently needed orappropriate. vh0Wvpyklwwvshc: Psych MD informed of patient's status at 22:30, ED MD notified ofpatients status at 22:46. Disposition: Medically cleared for disposition by Meet.Psychiatric Consult is performed by phone with Dr David Little The patientis to betransferred to bed availability facility. Legal Status: Patient's legal statuswi beDirectory of Community Services: 37. Commitment papers are completed. DSM-VDX [place] Idiagnosis: Depression, Unspecified. Insurance Pre-Certification: Not Required.IMHUAdmission [...] Awaiting referral hospitalacceptance.The patient is not a flight attendant inflight services or dependent. [place] SuicideSeverityRating Scale: Suicidal Ideation Rating 2; Intensity of Ideations Rating 23;SuicidalBehavior Rating 0.04/416:02 Narrative Pt will be discharged home per Dr. Patten. [facility] and denies am11SI/HI. Pt will follow up with outpatient services. Pt provided contactinformation forPSA and [facility]. Pt will come to the ED if problems continue or worsen.Psych:04/320:50 Subjective: Delusions are denied, Hallucinations are denied Havingthoughts of suicide. qn3Mcsfzp suicidal plan. Objective: Patient is cooperative, Speech [...] 53.26 (149.69 kg, 167.64 cm)jw523:48 Pain Scale: Bangbtk399/0411:45 Pain Scale: Iqetifk923:43 Pain Scale: AdulttlmED Course:04/320:29 Patient arrived in [...] Nurse role handed off by Fortunato Mark, RNtlm07:21 Verbal reassurance given. Pillow given.ef107:32 Attending Physician role handed off by Nils Argueta, JGgz160:32 Santiago Rajan MD is Attending Physician.rf208:16 Diet tray given.km9Qcxttzuwdwps Medications:04/322:16 Drug: Ibuprofen 600 mg [ibuprofen 600 mg tablet (1 tabs)] Route: PO;kk223:48 Follow up: Pain 3/10 Mbqvgkh604/0410:16 Drug: Propranolol 10 mg Route: PO;ef110:46 Follow up: Response: No adverse tsxjnalhnx906:16 Drug: sertraline 50 mg Route: PO;ef110:46 Follow up: Response: No adverse hgtaboqhju965:16 Drug: Topiramate 75 mg Route: PO;ef110:45 Follow up: Response: No adverse mnjkusadju220:16 Drug: Loratadine 10 mg Route: PO;ef110:45 Follow up: Response: No adverse olivnluset774:17 Drug: ARIPiprazole 10 mg Route: PO;ef110:46 Follow up: Response: No adverse :45 Drug: Acetaminophen Tablet 650 mg Route: PO;ef111:45 Follow up: Pain 0/10 Pvakiuu4Xqnmvcz:16:06 Discharge ordered by .rf216:43 Condition: stable.tlm16:43 Discharge inst ructions given to patient, Instructed on dischargeinstructions, followup and referral plans. Demonstrated understanding of instructions.16:43 Discharge Assessment: Patient awake, alert and oriented x 3. Nocognitive and/orfunctional deficits noted. Patient verbalized understanding of dispositioninstructions. Patient verbalized understanding of disposition instructions.Patient hasno functional deficits.16:43 Patient left the ED.tlmSignatures:Magaly Gray RN RN tlZakia Brito RN RN ob5TpfxnkcNils bansal MD MD sx8TpglnFortunato humphrey RN RN sz3WdthnujnAmi dang, RN JSOE LUIS na5NvciIna Jack am11Measheaw, Usha ms8QswfrSantiago MD MD [id number]: (The following items were deleted from the [...] Pt presents to the EDby [employer] for az6snpxazmw ideations. A s PSA was going into her room pt was tapping her head offthewall. Pt was discharged from our unit on Wednesday (04/11), [facility]. Pt had [facility] out of [facility] back to [facility] where the police picked her up [...] Name Value Range Interpretation Code Description Data [facility] Supporting Document(s) ID Date Data Source [id number] 04/12/2021 04:52:00 AM EDT [facility] Name Value Range Interpretation Code Description Data Stephanie rce(s) Supporting Document(s) Sodium 138 mmol/L 136-145 Normal (applies to non-numeric resul ts) [facility] Potassium 3.5-5.1 Normal (applies to non-numeric resul ts) [facility] Chloride 102 mmol/L 98-107 Normal (applies to non-numeric resul ts) [facility] Carbon Dioxide CO2 21-32 Normal (applies to non-numer ic results) [facility] Anion Gap 5.0-16.0 Normal (applies to non-numeric resul ts) [facility] BUN 13 mg/dL 7-18 Normal (applies to non-numeric results) [facility] Creatinine,Serum 0.7-1.2 Normal (applies to non-numeric results) [facility] GFR >60 Normal (applies to non-numeric results) [facility] Glucose Level 97 mg/dL 60-99 Normal (applies to non-numeric re sults) [facility] Reference range is only applicable when patient is fasting Note the following drug interference: Sulfasalazine Sulfapyridine Can see falsely depressed Can see falsely elevated result with up to 17% results with up to 11% decrease in measurement increase in measurement Recommend patients be collected for this test prior to administration of either drug. Calcium 8.5-10.1 Normal (applies to non-numeric resul ts) [facility] Bilirubin,Total 0.1-1.9 Normal (applies to non-numeric results) [facility] SGOT(AST) 30 U/L 15-37 Normal (applies to non-numeric resul ts) [facility] Note the following drug interference: Sulfasalazine Sulfapyridine Can see falsely depressed Can see falsely elevated result with up to 10% results with up to 10% decrease in measurement increase in measurement Recommend patients be collected for this test prior to administration of either drug. SGPT(ALT) 54 U/L 12-78 Normal (applies to non-numeric resul ts) [facility] Note the following drug interference: Sulfasalazine Sulfapyridine Can see falsely depressed Can see falsely elevated result with up to 29% results with up to 10% decrease in measurement increase in measurement Recommend patients be collected for this test prior to administration of either drug. Alkaline Phosphatase 130 U/L 38-126 Above high normal [facility] can increase Alkaline Phosp le vels up to 2 times the normal adult value. Normal values for children and adolescents are 2 to 3 times the normal adult value. Total Protein 6.0-8.2 Above high normal [facility] Albumin Level 3.4-5.0 Normal (applies to non-numeric re sults) [facility] ID Date Data Source [id number] 04/12/2021 04:52:00 AM EDT [facility] Name Value Range Interpretation Code Description Data Stephanie rce(s) Supporting Document(s) Acetaminophen 10.0-30.0 Below low normal [facility] ID Date Data Source [id number] 04/12/2021 04:52:00 AM EDT [facility] Name Value Range Interpretation Code Description Data Stephanie rce(s) Supporting Document(s) Magnesium 1.8-2.4 Normal (applies to non-numeric resul ts) [facility] ID Date Data Source [id number] 04/12/2021 04:52:00 AM EDT [facility] Name Value Range Interpretation Code Description Data Stephanie rce(s) Supporting Document(s) Troponin I 0.000-0.056 Normal (applies to non-numeric resu lts) [facility] ID Date Data Source [id number] 04/12/2021 04:52:00 AM EDT [facility] Name Value Range Interpretation Code Description Data Stephanie rce(s) Supporting Document(s) Salicylate 2.8-20.0 Below low normal [facility] ID Date Data Source [id number] 04/12/2021 04:51:00 AM EDT [facility] Name Value Range Interpretation Code Description Data Stephanie rce(s) Supporting Document(s) Ethanol Less than 10.0 Normal (applies to non-numeric r esults) [facility] ID Date Data Source [id number] 04/12/2021 04:23:00 AM EDT [facility] Name Value Range Interpretation Code Description Data Stephanie rce(s) Supporting Document(s) White Blood Count 3.5-10.5 Normal (applies to non-numeri c results) [facility] Red Blood Count 3.90-5.00 Normal (applies to non-numeric results) [facility] Hemoglobin 12.0-15.5 Normal (applies to non-numeric resul ts) [facility] Hematocrit 34.9-44.5 Normal (applies to non-numeric resul ts) [facility] Mean Corpuscular Volume 81.2-95.1 Normal (applies to non- numeric results) [facility] Mean Corpuscular Hgb 25.6-32.2 Normal (applies to non-num deena results) [facility] Mean Corpuscular Hgb Conc 32.0-36.0 Normal (applies to no n-numeric results) [facility] Red Cell Distribution Width 11.9-15.5 Normal (appli es to non-numeric results) [facility] Platelet Count 306 x10 3/uL 150-450 Normal (applies to non-numeric results) [facility] Mean Platelet Volume 9.4-12.4 Normal (applies to non-num deena results) [facility] Neutrophils% (Auto) 31.0-71.0 Normal (applies to non-nume frank results) [facility] Lymphocytes% (Auto) 20.0-55.0 Normal (applies to non-nume frank results) [facility] Monocytes% (Auto) 4.0-12.0 Normal (applies to non-numeri c results) [facility] Eosinophils% (Auto) 1.0-8.0 Normal (applies to non-nume frank results) [facility] Basophils% (Auto) 0.0-2.0 Normal (applies to non-numeri c results) [facility] Immature Granulocytes% (Auto) 0.0-2.0 Normal (alexander lies to non-numeric results) [facility] Neutrophils# (Auto) 1.50-6.20 Above high normal [facility] Lymphocytes# (Auto) 1.20-4.00 Normal (applies to non-nume frank results) [facility] Monocytes# (Auto) 0.00-0.90 Normal (applies to non-numeri c results) [facility] Eosinophils# (Auto) 0.00-0.50 Normal (applies to non-nume frank results) [facility] Basophils# (Auto) 0.00-0.20 Normal (applies to non-numeri c results) [facility] Immature Granulocytes# (Auto) 0.00-7.00 No rmal (applies to non-numeric results) [facility] ID Date Data Source [id number] 04/12/2021 03:50:00 AM EDT [facility] Name Value Range Interpretation Code Description Data Stephanie rce(s) Supporting Document(s) Respiratory specimen severe acute respir atory syndrome coronavirus 2 (SARS-CoV-2) RNA Not Detected [facility] This lab was ordered by [facility] florina and reported by . ID Date Data Source [id number] 04/12/2021 05:08:00 AM EDT [facility] Name Value Range Interpretation Code Description Data Stephanie rce(s) Supporting Document(s) RP Internal Control Passed Normal (applies to non-nume frank results) [facility] Adenovirus None Detect Normal (applies to non-numeric resu lts) [facility] Coronavirus 229E None Detect Normal (applies to non-numeri c results) [facility] Coronavirus HKU1 None Detect Normal (applies to non-numeri c results) [facility] Coronavirus NL63 None Detect Normal (applies to non-numeri c results) [facility] Coronavirus OC43 None Detect Normal (applies to non-numeri c results) [facility] SARS-CoV-2 Not Detect Normal (applies to non-numeric resul ts) [facility] Negative results do not preclude SARS-Co V-2 infection and should not be used as the sole basis for treatment or other patient management decisions. Negative results must be combined with clinical observations, patient history, and epidemiological information. Testing was performed using the imagoo real-time nested multiplexed PCR Respiratory Panel 2.1 [...] Detect Normal (applies to non-n umeric results) [facility] Rhino/Enterovirus None Detect Normal (applies to non-numer ic results) [facility] Influenza A None Detect Normal (applies to non-numeric res ults) [facility] Influenza B None Detect Normal (applies to non-numeric res ults) [facility] Parainfluenza Virus 1 None Detect Normal (applies to non-n umeric results) [facility] Parainfluenza Virus 2 None Detect Normal (applies to non-n umeric results) [facility] Parainfluenza Virus 3 None Detect Normal (applies to non-n umeric results) [facility] Parainfluenza Virus 4 None Detect Normal (applies to non-n umeric results) [facility] Respiratory Syncytial Virus None Detect Norm al (applies to non-numeric results) [facility] Bordetella Parapertussis None Detect Normal (applies to non-numeric results) [facility] Bordetella Pertussis None Detect Normal (applies to non-nu meric results) [facility] Chlamydia Pneumoniae None Detect Normal (applies to non-nu meric results) [facility] Mycoplasma Pneumoniae None Detect Normal (applies to non-n umeric results) [facility] Methodology: Multiplexed PCR Refer ence Range: None detected ID Date Data Source [id number] 04/12/2021 04:42:00 AM EDT [facility] Collected By: Nurse Initials: cs Time Collected: 324 Collected By: Nurse Initials: cs Time Collected: 324 Name Value Range Interpretation Code Description Data Stephanie rce(s) Supporting Document(s) Color,Urine Colorl-Dk Y Normal (applies to non-numeric res ults) [facility] Clarity,Urine Clear [facility] Specific [place],Urine 1.005-1.030 Normal (applies to non- numeric results) [facility] pH,Urine 5.0-8.0 Normal (applies to non-numeric resul ts) [facility] Protein,Urine Negative [facility] [place] Glucose,Urine Negative Normal (applies to non-numeric re sults) [facility] Ketones,Urine Negative [facility] [place] Blood,Urine Negative Normal (applies to non-numeric resu lts) [facility] Bilirubin,Urine Negative Normal (applies to non-numeric results) [facility] Urobilinogen,Urine 0.2-1.0 Normal (applies to non-numer ic results) [facility] Leukocyte Esterase,Urine Negative Normal (applies to non -numeric results) [facility] Nitrite,Urine Negative Normal (applies to non-numeric re sults) [facility] ID Date Data Source [id number] 04/12/2021 04:42:00 AM EDT [facility] Collected By: Nurse Initials: cs Time Collected: 324 Collected By: Nurse Initials: cs Time Collected: 324 Name Value Range Interpretation Code Description Data Stephanie rce(s) Supporting Document(s) RBC,Urine None Seen Normal (applies to non-numeric resul ts) [facility] WBC,Urine None Seen [facility] Casts,Urine None Seen Normal (applies to non-numeric resu lts) [facility] Squamous Cells,Urine None Seen [facility] Amorphous Sediment,Urine None Seen [facility] Bacteria,Urine None Seen [facility] ital ID Date Data Source [id number] 04/12/2021 04:32:00 AM EDT [facility] Name Value Range Interpretation Code Description Data Stephanie rce(s) Supporting Document(s) UDS Benzodiazepines Screen Negative Normal (applies to n on-numeric results) [facility] UDS Cocaine Screen Negative Normal (applies to non-numer ic results) [facility] UDS Ampetamine Screen Negative Normal (applies to non-nu meric results) [facility] UDS Cannabinoids Screen Negative Normal (applies to non- numeric results) [facility] UDS Opiates Screen Negative Normal (applies to non-numer ic results) [facility] UDS Barbiturates Screen Negative Normal (applies to non- numeric results) [facility] Threshold Levels Benzodiazepine 200 ng/mL Cocaine 300 ng/mL Amphetamines 1000 ng/mL Cannabinoids (THC) 50 ng/mL Opiates 300 ng/mL Barbiturates 200 ng/mL All positive findings are presumptive and unconfirmed. Confirmation of positive results are performed only at request of provider. Unconfirmed results must not be used for non-medical purposes (i.e. preemployment and legal purposes) ID Date Data Source [id number] 04/11/2021 01:49:00 PM EDT [address] DISCHARGE SUMMARYPATIENT NAME: YARELI HATCH MR#: [id number] PHYSICIAN: BOGDAN ALMAGUER MDAUTHOR: Colleen SMITH,Bogdan DATE: 04/09/21 #: [id number] DATE: 04/11/21HistoryIdentificationThis is a 27-drsfr-kyi white female.Chief Complaint"I am having suicidal thoughts and anxiety."Reason for AdmissionPatient is well known to us. She presented to the ER with the complaint ofincreased suicidal ideations after an argument with her significant other. Shehas a history of suicidal ideations and multiple inpatient treatment. Patientcannot contract for safety. Hence, she was hospitalized.History of Presenting IllnessPatient was seen today along with the administrative assistant coordinator, Gloria, and a [facility]student [facility]. She presented to the ER with [facility] due to patient contacting them stating [...] hasn't beensleeping for 3 weeks.Patient was at [facility] since and transferred to [facility] and discharged. She states that she was in a [place] [facility] anddischarged from there and has been trying to be admitted to several hospitalsthere. Stated she cannot contract for safety and thus requested an inpatienttreatment. She reported increased stress due to not feeling safe at her [facility]residence due to another resident, increased family conflict due to beingtransgender and ex being in assisted. She also reported that she was notfollowing the rule of [facility]. She is not diligent with medications.Past Psych/Medical HistoryPsychiatric HistoryShe has long history of psychiatric problem including bipolar disorder, ADHD,anxiety, and depression with numerous hospitalizations. She has attemptedsuicide multiple times by overdose and by cutting herself. She was dischargedjust one day before her last hospitalization. [facility] [place] She is on AOT since 01/09/21.Medical HistoryDenies [...] she would prefer to bedischarged back to [facility] as she is no longer feeling [...] [facility] also [facility] that [facility] [...] 240Continue taking these medications:IBUPROFEN (IBUPROFEN) 400 MG [id number] MILLIGRAM Orally EVERY 6 HOURS NEEDED as needed for HeadacheQty = 21Loratadine* (Claritin*) 10 MG [id number] MILLIGRAM Orally DAILYDays = 30 Qty = 30PROPRANOLOL HCL (Inderal*) 10 MG UICPSQ41 MILLIGRAM Orally TWICE DAILYDays = 30 Qty = 60TOPIRAMATE (TOPAMAX) 25 MG [id number] MILLIGRAM Orally DAILYDays = 60 Qty = 30SERTRALINE (Zoloft*) 50 MG [id number] MILLIGRAM Orally DAILYDays = 30 Qty = 30MONTELUKAST SODIUM (MONTELUKAST) 10 MG NKZEVR90 MILLIGRAM Orally DAILYDays = 30 Qty = 30Aripiprazole* (Abilify*) 10 MG [id number] MILLIGRAM Orally DAILYPRAZOSIN HCL (PRAZOSIN HCL) 2 MG CAPSULE2 MILLIGRAM Orally AT BEDTIMEOlanzapine* (Zyprexa*) 5 MG TABLET5 MILLIGRAM Orally AT BEDTIMEAripiprazole (Abilify Maintena) 400 MG SUSER.TMJ795 MILLIGRAM Intramuscularly C66TThy = 1Instructions:last im inj received 04/03/21Discharge Activity: As toleratedDischarge diet: RegularFollow-upFollow up with your Primary care physicianFollow up with therapiest and psychiatristrecommended outpt chemical dependencyReferralsOrdered ReferralsCOMM[facility]ITY [place] [address] [phone]) on April 15 at9:[address] Giles[place] [place] [address] [phone] on April 18 at2:00 pm with Grayson.DATE SIGNED: 04/11/21 Electronically Melania dTIME SIGNED: 1353 BOGDAN ALMAGUER MD Name Value Range Interpretation Code Description Data Stephanie rce(s) Supporting Document(s) ID Date Data Source [id number] 04/11/2021 09:25:00 AM EDT [facility] [address]YU NAME: YARELI HATCH#: [id number] PHYSICIAN: HUBER VELAZQUEZ #: [id number] ADM. DATE: 04/09/21PATIENT : 00 DISCH. DATE: [50}DISCHARGE SUMMARYMHU discharge planNicotine Replacement TherapySmoking Status Current some day smokerPrescribed at discharge Rx offered, pt refusedAlcohol/Drug DisorderAlcohol or Drug Disorder counseling prescribedPersonal Care InstructionsDischarge Activity: As toleratedDischarge diet: RegularFollow Up CareFollow Up:Follow up with your Primary care physicianFollow up with therapiest and psychiatristrecommended outpt chemical dependencyPriority ItemsUrgent/Important items that need to be addressed at p [facility] care follow-upappointmentDischarge InformationDISCHARGE INFORMATION* Thank [facility] and allowing us toserve you* Our Goal is to provide the highest quality of care.* This discharge information is to help you better understand your diagnosisand medication* Avoid taking esgm-wgd-fultxjg medicines unless approved by your physician.* Take your medications as prescribed. DO NOT stop any medications unlessapproved first* Weigh yourself daily. Report any gain of 5 lbs in a week* 24 Hour Crisis HOTLINE available: Call [facility] at [phone]* Chem. Dependency: Walk in Clinics [place] ([phone]) and [place] ([phone]) anytime Wednesday thru Wednesday 8 to 10am. [place] ([phone]) anytimeWednesday thru Wednesday 8 to 10am. [place] ([phone]) Wednesday or Wednesday from 8to 10am (Bring $30 to [facility]) SMOKIN G CESSATION* Smoking is dangerous to your health. It delays the healing process, andworks against your medications. Not smoking will improve your health* Our hospital participates with the Opt-to-Quit program. You will be contactedafter discharge by the [facility] Smoker's Quitline for support with tobaccocessation. You have the option once contacted to refuse this service.* You can also go online to www.LSEO. Free nicotine replacementsare available Attention* You should [...] rce(s) Supporting Document(s) ID Date Data Source [id number] 04/10/2021 01:59:00 PM EDT [address] HEALTH PROGRESS NOTEPATIENT NAME: YARELI HATCH PHYSICIAN: BOGDAN ALMAGUER MDAUTHOR: Colleen SMITH,DhruvADM. DATE: 04/09/21 MR#: [id number] NOTE DATE: 04/10/21 RM#: 316EVALUATION TIME: 1402 is a 22-pjtwp-hzk white female.CC/Hx Present Illness"I am having suicidal thoughts and anxiety."Events Since Last EntryPatient reported that she has been feeling better, she stated that she wouldlike to go back to [facility], she stated that she was dealing [...] rce(s) Supporting Document(s) ID Date Data Source [id number] 04/10/2021 07:18:00 AM EDT [address] HEALTH HISTORY AND PHYSICALPATIENT NAME: YARELI HATCH MR#: [id number] PHYSICIAN: BOGDAN ALMAGUER MDAUTHOR: Evi SMITH,S. DATE: [...] Home Medication ListAllergiesCoded Allergies:risperidone (08/04/19)ExamVital SignsVital Signs-24 HRS09/924597Aowa 98.8Pulse 80Resp 18B/P 122/65B/P MeanPulse Ox 99O2 DeliveryO2 Flow WxydFhN2Zqkxtcantr/PlanDiagnosis/Problem1. Major depressive disorderStatus Chronic2. Suicide attemptStatus Acute3. Bipolar affective disorderStatus Chronic4. Bipolar disorder5. Borderline personality disorderStatus Chronic6. Obesity, morbidStatus ChronicDATE SIGNED: 04/10/21 Deann garcia SignedTIME SIGNED: 0732 DORI KENNEDY MD Name Value Range Interpretation Code Description Data Stephanie rce(s) Supporting Document(s) ID Date Data Source [id number] 04/09/2021 04:05:00 PM EDT [facility] PSYCHIATRIC ASSESSMENTPATIENT NAME: YARELI HATCH MR#: [id number] PHYSICIAN: BOGDAN ALMAGUER MDAUTHOR: Surendra SMITHP. DATE: 04/09/21 #: 3RDHistoryIdentificationThis is a 63-cihfe-xky white female.Chief Complaint"I am having suicidal thoughts and anxiety."Reason for AdmissionPatient is well known to us. She presented to the ER with the complaint ofincreased suicidal ideations after an argument with her significant other. Shehas a history of suicidal ideations and multiple inpatient treatment. Patientcannot contract for safety. Hence, she was hospitalized.History of Presenting IllnessPatient was seen today along with the administrative assistant coordinator, Gloria, and a PAstudent from [facility]. She presented to the ER with [facility] due to patient contacting them stating [...] hasn't beensleeping for 3 weeks.Patient was at [facility] since and transferred to [facility] and discharged. She states that she was in a [place] [facility] anddischarged from there and has been trying to be admitted to several hospitalsthere. Stated she cannot contract for safety and thus requested an inpatienttreatment. She reported increased stress due to not feeling safe at her [facility]residence due to another resident, increased family conflict due to beingtransgender and ex being in assisted. She also reported that she was notfollowing the rule of [facility]. She is not diligent with medications.Portions of this section were scribed by Shell Ariza on 04/09/21 at 1638Past Psych/Medical HistoryPsychiatric HistoryShe has long history of psychiatric problem including bipolar disorder, ADHD,anxiety, and depression with numerous hospitalizations. She has attemptedsuicide multiple times by overdose and by cutting herself. She was dischargedjust one day before her last hospitalization. [facility] [place] She is on AOT since 01/09/21.Medical HistoryDenies [...] rce(s) Supporting Document(s) ID Date Data Source [id number] 04/09/2021 07:55:00 AM EDT [facility] Name Value Range Interpretation Code Description Data Stephanie rce(s) Supporting Document(s) LCOVID-19, [facility] This lab was ordered by [facility] and reported by [facility]. ID Date Data Source [id number] 04/09/2021 08:19:00 AM EDT [facility] Name Value Range Interpretation Code Description Data Stephanie rce(s) Supporting Document(s) COVID-19, CORDELL NEGATIVE NEGATIVE N [facility] Methodology: Isothermal Nucleic Acid Amp [...] Emergency Use Authorization. ID Date Data Source [id number] 04/08/2021 11:32:00 PM EDT [facility] [place] Name Value Range Interpretation Code Description Data Stephanie rce(s) Supporting Document(s) SALICYLATE < 1.7 mg/dL 0.0-20.0 [facility] ID Date Data Source [id number] 04/08/2021 11:32:00 PM EDT [facility] [place] Name Value Range Interpretation Code Description Data Stephanie rce(s) Supporting Document(s) ACETAMINOPHEN < 2.0 ug/mL 0-30 [facility] Date Data Source [id number] 04/08/2021 11:32:00 PM EDT [facility] [place] Name Value Range Interpretation Code Description Data Stephanie rce(s) Supporting Document(s) ETOH 0.004 g/dL NONE DETECTED H [facility] ID Date Data Source [id number] 04/08/2021 11:32:00 PM EDT [facility] [place] Name Value Range Interpretation Code Description Data Stephanie rce(s) Supporting Document(s) GLU 100 mg/dL 70-110 [facility] Patients taking Sulfasalazine may have f alsely depressedGlucose levels. Patients taking Sulfapyridine may havefalsely elevated Glucose levels. Patients should be drawnfor Glucose before the initial administration of eitherdrug. BUN 12 mg/dL 7-23 [facility] CRE 0.644 mg/dL 0.500-1.300 [facility] GFR > 60 mL/min [facility] CHLORIDE 111 mmol/L 99-110 [facility] NA 142 mmol/L 136-147 [facility] POTASSIUM 3.9 mmol/L 3.5-5.1 [facility] TCO2 28 mmol/L 20-33 [facility] ANION GAP 6.9 10.0-20.0 [facility] CA 8.4 mg/dL 8.3-10.7 [facility] ALKALINE PHOS 124 U/L 45-117 [facility] TP 7.4 g/dL 6.0-7.8 [facility] ALB 3.5 g/dL 3.5-5.0 [facility] ESRD Dialysis patient Albumin reference range: 2.9-4.4 g/dL GL 3.9 g/dL 2.3-3.5 [facility] A/G 0.9 1.0-2.5 [facility] T. BILIRUBIN 0.2 mg/dL 0.1-1.1 [facility] The Dimension Mason Total Bilirubin is n ot recommended forpatients undergoing treatment with eltrombopag (Promacta)due to the potential for falsely elevated results. ALTI 55 U/L 6-54 [facility] Patients taking Sulfasalazine and/or Sul fapyridine may havefalsely depressed ALT levels. Patients should be drawn forALT before the initial administration of either drug. AST 31 U/L 6-38 [facility] Patients taking Sulfasalazine and/or Sul fapyridine may havefalsely depressed AST levels. Patients should be drawn forAST before the initial administration of either drug. ID Date Data Source [id number] 04/08/2021 11:05:00 PM EDT [facility] Name Value Range Interpretation Code Description Data Stephanie rce(s) Supporting Document(s) WBC 8.86 x10E3/uL 4.0-10.5 [facility] RBC 4.27 x10E6/uL 4.20-5.40 [facility] Hemoglobin 12.5 g/dL 12.0-16.0 [facility] Hematocrit 38.3 % 37.0-47.0 [facility] MCV 89.7 fL 81.0-99.0 [facility] MCH 29.3 pg 27.0-31.0 [facility] MCHC 32.6 g/dL 32.7-35.6 [facility] RDW 12.1 % 11.5-14.0 [facility] Platelet count 266 x10E3/uL 150-450 [facility] ital MPV 9.6 fl 6.9-9.5 [facility] Neutrophils 57.4 % 34-64 [facility] Lymphocytes 32.3 % 25-45 [facility] Monocytes 7.8 % 1.7-10.6 [facility] Eosinophils 1.7 % 0.4-7.0 [facility] Basophils 0.3 % 0.1-2.0 [facility] Imm. Gran. 0.5 % 0.1-2.0 [facility] Abs. Neutro. 5.09 x10E3/uL 1.2-7.6 [facility] Abs. Lymph. 2.86 x10E3/uL 1.0-3.5 [facility] Abs. Metcalfe. 0.69 x10E3/uL 0.1-1.0 N [facility] l Abs. Eosin. 0.15 x10E3/uL 0.1-0.7 [facility] Abs. Baso. 0.03 x10E3/uL 0.0-0.1 N [facility] l Abs. Imm. Gran. 0.04 x10E3/uL 0.0-0.1 [facility] spital ANRBC% 0 % 0 [facility] ID Date Data Source [id number] 04/08/2021 11:56:00 PM EDT [facility] [place] Name Value Range Interpretation Code Description Data Stephanie rce(s) Supporting Document(s) PCP VISTA NEG NEGATIVE [facility] MINIMUM LEVEL OF DETECTION IS 25 ng/ml BENZODIAZEPINES NEG NEGATIVE [facility] al MINIMUM LEVEL OF DETECTION IS 200 ng/ml COCAINE VISTA NEG NEGATIVE [facility] MINIMUM LEVEL OF DETECTION IS 300 ng/ml AMPHETAMINES NEG NEGATIVE [facility] al MINIMUM LEVEL OF DETECTION IS 1000 ng/ml BARBITURATES NEG NEGATIVE [facility] al CUTOFF CONCENTRATION IS 200 ng/ml CANNABINOIDS NEG NEGATIVE [facility] al CUTOFF CONCENTRATION IS 50 ng/ml METHADONE VISTA NEG NEGATIVE [facility] al MINIMUM LEVEL OF DETECTION IS 300 ng/ml OPIATE VISTA NEG NEGATIVE [facility] MINIMUM DETECTION LEVEL IS 300 ng/ml ID Date Data Source [id number] 04/08/2021 11:30:00 PM EDT [facility] Name Value Range Interpretation Code Description Data Stephanie rce(s) Supporting Document(s) URINE COLOR Yellow [facility] UAPR Turbid [facility] UGLU Negative NEGATIVE [facility] URINE BILIRUBIN [facility] UKET Negative NEGATIVE [facility] USG 1.021 1.010-1.025 [facility] UBLO Negative NEGATIVE [facility] UpH 8.5 5.0-8.0 [facility] UPRO Trace Negative [facility] UUB 1.0 mg/dL 0.2-1.0 [facility] UNIT Negative Negative [facility] ULEU Trace Negative [facility] ID Date Data Source [id number] 04/08/2021 11:30:00 PM EDT [facility] Name Value Range Interpretation Code Description Data Stephanie rce(s) Supporting Document(s) URINE RBC 0-2 RBCs/HPF NONE SEEN [facility] URINE WBC 3-5 WBCs/HPF NONE SEEN N [facility] URINE BACTERIA Few NONE SEEN [facility] URINE EPI. Many NONE SEEN [facility] URINE CRYSTAL MANY AMORPHOUS NONE SEEN [facility] ID Date Data Source [id number] 04/08/2021 11:30:00 PM EDT [facility] Name Value Range Interpretation Code Description Data Stephanie rce(s) Supporting Document(s) HCG QUAL URINE Negative Negative [facility] ID Date Data Source [id number] 04/09/2021 04:09:00 PM EDT [facility] [place] Physician DocumentationClaxton-Cristina Hinkle edical CenterName: Yareli DuvallAge: 20 yrsSex: FemaleDOB: 2000MRN: [id number] Date: 04/08/2021Time: 22:26Account#: [id number] MD: NONE, - Per PatientED Physician Zhao Rajan Summary:04/09/21 12:49Hospitalization OrderedHospitalization Status: Inpatient Feilugqiabq6Ewdjhozf: Anjel Oneillmrf2Location: Mental Health Dzpxgi0Hzqiwdgwi: Hhzqrxay7Fvdlwms: an acute scpmxyodmbzptt8Mnovfgyc: are qimbgqanldm2Vjap Assignment:sf2Axljgmtie- Major depressive disorder, recurrent, ruwzrftrgqfyn0Rtknodtibk Information- Admission Type: Inpatient Status.nn8Bjoxm:- Medication Reconciliationrf2- SBARrf2- Medication Reconciliation Form - 2nd Copyrf2- Psych. BMTHxj6RIJ:03/2906:59 This 20 yrs old White Female presents to ER via Police with complaints ofPsych Problem.br07:19 20-year-old female with extensive psychiatric history of bipolar ADHDanxiety brdepression presents complaints of increasing suicidal ideation after argumentwithsignificant other. 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 prazosin 2 mg Oral capsule 1 cap every day at bedtime2. Zyprexa 5 mg Oral tablet 1 tab nightly3. montelukast 10 mg oral tablet 1 tab daily4. topiramate 75mg oral tablet daily5. aripiprazole 10 mg oral tablet 1 tab daily6. aripiprazole 400 mg intramuscular suspension,extended release syringe 400 ouwnlak85 days7. sertraline 50 mg oral tablet 1 [...] Temp 97.3; Pulse Ox 98% on R/A; Janhgo652.33 kg (R); am8Qbnikk 5 ft. 6 in. ; Pain 0/10;03/2908:38 BP 123 / 77; Pulse 66; Resp 18; Temp 97(TE); Pulse Ox 98% on R/A;sw215:20 BP 126 / 70 (auto/); Pulse 70 MON; Pul se Ox 97% ;ef109/2:31 Body Mass Index 37.12 (104.33 kg, 167.64 cm)kk309/2:31 Pain Scale: Fnwtbug6LIQ:03/2822:45 Patient medically screened.br09/2906:53 Transition of care: Care assumed from Zeeshan Grover MD.rf206:54 Data reviewed: vital signs, nurses notes, lab test result(s), CBC, druglevel(s), xl3olmjzigipgwhn, alcohol, salicylate, electrolytes, hepatic panel, urinalysis,urine drugscreen. [...] Order name: Medically Cleared for Eval by-Psychosocial, [place] (.PSA);Complete Time: rf213:27Dispensed Medications:08:37 Drug: sertraline 50 mg [sertraline 50 mg tablet (1 tabs)] Route: PO;sw215:21 Follow up: Response: No adverse okdwobdpjd565:37 Drug: Topiramate 75 mg [topiramate 25 mg tablet (3 tabs)] Route: PO;sw215:21 Follow up: Response: No adverse afhubmtezm644:38 Drug: ARIPiprazole 10 mg [aripiprazole 10 mg tablet (1 tabs)] Route: PO;215:22 Follow up: Response: No adverse llmplujryz270:38 Drug: Loratadine 10 mg [loratadine 10 mg tablet (1 tabs)] Route: PO;sw215:21 Follow up: Response: No adverse ykadffumyu199:38 Drug: Montelukast 10 mg Route: PO;215:21 Follow up: Response: No adverse exgamyznxs261:38 Drug: Propranolol 10 mg [propranolol 10 mg tablet (1 tabs)] Route: PO;sw215:21 Follow up: Response: No adverse roman tkbcsgs1Hpnobnmetd:Dispatcher [employer] Fortunato Burrell RN RN kw8BavffpwZeeshan armstrong MD MD brKelly, Krista RN RN sn0Gqto, JOSE LUIS Baker RN od1IfgyvSantiago betts MD MD gq4PdbccjvgAmi dang RN rk7Iwjmovkocsm: (The following items were deleted from the chart)01:16 04/08 22:33 Home Meds: Lexapro 10 mg Oral tablet 1 tab nightly; kk3kk3 Name Value Range Interpretation Code Description Data Stephanie rce(s) Supporting Document(s) ID Date Data Source [id number] 04/09/2021 04:09:00 PM EDT [facility] terName: Yareli DuvallAge: 20 yrsSex: FemaleDOB: 2000MRN: [id number] Date: 04/08/2021Time: 22:26Account#: [id number] Jitendra MD: NONE, - Per PatientDiagnosis: Major depressive disorder, recurrent, unspecifiedPresentation:03/2822:28 Presenting complaint: Patient states: "I am having suicidal thoughts andanxiety.". mx9Qcfmvnekuqg Screening: Have you been diagnosed with COVID-19 in the past 30days? noAre you currently on quarantine by Public Health? no Flu-like symptoms reportedin thelast 14 days: no. Have you had close contact with confirmed or suspectedCOVID-19 case?no Do you live in a setting where a large of amount of people live, such [facility], family care, intermediate, etc? no. Have you traveled to a location withwidespread orongoing COVID-19 community spread or outside of [facility]? no Have you traveledinternationally or had contact with someone that has traveled and has been illin thepast 3 weeks? no Have you received the COVID vaccine? Yes. Communication SpeaksEnglish? Yes, is preferred language. Language Line Services needed? No Are TDDneeded?No. Best learning method: discussion. Learning barriers: none identified.22:28 Acuity: Triage 5bk017:28 Method Of Arrival: Clcolrwa088:29 Presenting complaint: Badge #[id number] from [facility] states patient madesuicidal xy2jvknpxewxb and called police to be brought in.22:30 Acuity Assignment: Triage 5qx245:50 International Travel Fever No. Communicable Disease Screen: Negative forfever>/= 100 hl5vrjrufw Fahrenheit. Communicable disease screen is negative. (-) rash orunusual skinlesion (-) travel/contact with traveler (-) respiratory symptoms.Triage Assessment:22:34 General: Appears in no apparent distress, well nourished, well groomed,Behavior is fx1sskaoko, appropriate for age, cooperative, Denies fever, chills. 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 prazosin 2 [...] threats or abuse. Denies injuries from another.Nutritional tl8mfsjvkqxm: No deficits noted. Offer of HIV testing: patient was previouslyofferedscreening. Fall Risk None identified.Assessment:03/2822:37 Reassessment: see triage assessment by this repairer typewriter.kk323:59 Reassessment: Patient appears in no apparent distress at this time.jw509/2900:52 Reassessment: Patient appears in no apparent distress at this time.kk302:19 Reassessment: No changes from previously documented assessment.jw503:49 Reassessment: No changes from previously documented assessment.jw505:06 Reassessment: No changes from previously documented assessment.jw506:34 Reassessment: No changes from previously documented assessment.jw508:29 Reassessment: Patient appears in no apparent distress at this time. Nochanges from ms5zjfenarpur documented assessment. Sitter at bedside. .09:59 Reassessment: Patient appears in no apparent distress at this time. Nochanges from uc8hzjvwqsnsp documented assessment. Patient sleeping in bed. Sitter at bedside. .10:57 Reassessment: Patient appears in no apparent distress at this time. Nochanges from ur1jtjcrlvudl documented assessment. Patient sleeping. Sitter at bedside. .Psychosocial:04:52 Narrative PSA spoke to Dulce at [facility] ([phone]) who states that thepatient was uw3ocnp all day. She states that she was [...] Completed. Interventi on: Observation Level 3.Referral Information: zo6Orxdpgocyc referral is generated by a police agency: [employer]. The patient wasreferred forevaluation because patient had voiced suicidal ideations.05:09 Subjective: The patients chief complaint is Pt presents to the ED by [employer].Patient nx9pjpyeka feeling suicidal for "a while" now and [...] history of anxiety, Bipolar Disorder, Depression, self-mutilation, jc8Qzxaj: [employer]. Mental Health Admissions: several. pt was last at [facility] 04/01/21 anddischarged 04/03 Current Outpatient Mental Health Services: [facility] [place] Living Environment: Family / Home Support: poorThepatient currently lives in a [facility] residence. The patient is single. Detox /RehabAdmissions: None. Current Outpt Alcohol or Substance Abuse Services: None.05:16 Patient presents to Emergency Department with the following symptomswithin the past 2 gy2xlrxx: suicidal ideation with plan for jump in [...] patient status is not currently needed orappropriate. dt1Jmiwkpvfumuq: Psych MD informed of patient's status at 06:00, ED MD notified ofpatients status at 06:34. Disposition: Medically cleared for disposition by [facility].Psychiatric Consult is performed by phone with Dr David STEVENS. DSM-V DX [place] Idiagnosis:Depression, Unspecified. Insurance Pre-Certification: Not Required. IMHUAdmissionCriteria: [...] dosageadjustments. Awaiting. The patient is not a flight attendant inflight services or militarydependent.[place] Suicide Severity Rating Scale: Suicidal Ideation Rating 5; IntensityofIdeations Rating 25; Suicidal Behavior Rating 0.Psych:00:00 Subjective: Patient's mood is elevated, Delusions are denied,Hallucinations are denied zj2Nhrzyl thoughts of suicide. Denies suicidal plan. Objective: [...] Temp 97.3; Pulse Ox 98% on R/A; Aharpm656.33 kg (R); ce7Wekxzr 5 ft. 6 in. ; Pain 0/10;03/2908:38 BP 123 / 77; Pulse 66; Resp 18; Temp 97(TE); Pulse Ox 98% on R/A;sw215:20 BP 126 / 70 (auto/); Pulse 70 MON; Pulse Ox 97% ;ef109/2822:31 Body Mass Index 37.12 (104.33 kg, 167.64 cm)kk309/2822:31 Pain Scale: Japeecn9LX Course:03/2822:27 Patient arrived in ED.kk322:27 NONE, - [...] Physician role handed off by Zeeshan Grover, MGhd466:50 Santiago Rajan MD is Attending Physician.rf206:59 Attending Physician role handed off by Santiago Rajan MDbr06:59 Zeeshan Grover MD is Attending Physician.br07:22 Attending Physician role handed off by Zeeshan Grover MDrf207:22 Santiago Rajan MD is Attending Physician.rf212:48 Brooklyn Oneill MD is Hospitalizing Provider.rf214:54 Primary Nurse role handed off by Fortunato Mark RNNWkp1Hrmvsgdobale Medications:08:37 Drug: sertraline 50 mg [sertraline 50 mg tablet (1 tabs)] Route: PO;sw215:21 Follow up: Response: No adverse ewnywrqyfy533:37 Drug: Topiramate 75 mg [topiramate 25 mg tablet (3 tabs)] Route: PO;sw215:21 Follow up: Response: No adverse gbmhrmqeao513:38 Drug: ARIPiprazole 10 mg [aripiprazole 10 mg tablet (1 tabs)] Route: PO;sw215:22 Follow up: Response: No adverse ucpwslgsog010:38 Drug: Loratadine 10 mg [loratadine 10 mg tablet (1 tabs)] Route: PO;sw215:21 Follow up: Response: No adverse buuwfduerj396:38 Drug: Montelukast 10 mg Route: PO;sw215:21 Follow up: Response: No adverse keayoabzfy339:38 Drug: Propranolol 10 mg [propranolol 10 mg tablet (1 tabs)] Route: PO;sw215:21 Follow up: Response: No adverse zfucyequvg5Nvgeloi:12:49 Decision to Hospitalize by Provider.rf215:22 Disposition: Admitted to Psych accompanied by nurse, with chart.ef115:22 Condition: stable, Provider notified of abnormal vital signs.15:22 Discharge instructions given to patient, Instructed on need for admit,Demonstratedunderstanding of instructions.15:22 Discharge Assessment: Patient verbalized understanding of dispositioninstructions.Patient able16:09 Patient left the ED.mu9Lzwphrxlcv:Fortunato Mark, RN RN oi6ZetxbhbqAmi arthur RN RN kv9LwhjqknbxAgatha chapa RN RN ot4WaqbbupZeeshan Grover MD MD brKelly, Krista, RN RN ng8UnuastvlUsha alberto8WeOlivia jurado RN RN kg7LsuzfSantiago betts MD MD tt0Swmyovzmknd: (The following items were deleted from the chart)01:16 04/08 22:33 Home Meds: Lexapro 10 mg Oral tablet 1 tab nightly; pz0oh067/2905:17 05:14 Patient reports history of anxiety, Bipolar Disorder, Depression,self sm8-mutilation, Other: BPD. Mental Health Admissions: several. pt was last at [facility]04/01/21and discharged 04/03 Current Outpatient Mental Health Services: Psychiatrist /Agency[facility]. Living Environment: Family / Home Support: poor [facility] The [facility] is [facility]. Detox / Rehab Admissions: None. CurrentOutptAlcohol or Substance Abuse S ervices: None. sm8 Name Value Range Interpretation Code Description Data [facility] Supporting Document(s) ID Date Data Source [id number] 04/08/2021 08:32:18 AM EDT [facility] Name Value Range Interpretation Code Description Data Stephanie rce(s) Supporting Document(s) ED Provider Note [facility] ZLSAHz3qGmLHEwWj29/NMZndUNCxk8RpNJmdEJo1DIxkZSLvC5FhCTA8uZ6cBJE7JWoMDcOeTjUpYFO3 [facility] [file] == ID Date Data Source [id number] 04/08/2021 08:24:44 AM EDT [facility] Name Value Range Interpretation Code Description Data Stephanie rce(s) Supporting Document(s) Discharge Summary [facility] EIAMXb5nHuAECxKl29/BXXcjXGWqm8JpRJpgZFg2AQhpRJKwW4GnHFY6pZ6xNQW7IElAUiGlMnZfJZW5 lbm [file] jmdmPLW8Kb/peñaloza/VmiVXohmM5nDS4hP3b7nzkUO4XF95GZ6TkaORHlupvXctxOg6J34OzwXt0ksIeUiS8 [file] AgICAgICAgICAgICAgICAgICAgICAgICAgICAgICAgICAgICAgICAgICAgICAgICAgICAgICAgICAgIC AgICAgICAgICAgICAgICAgICAgICAgICAgICAgDQogICAgICAgICAgICAgICAgICAgICAgICAgICAgIC AgICAgICAgICAgICAgICAgICAgICAgICAgICAgICAg ICAgICAgICAgICAgICAgICAgICAgICAgICAgICAgICAgICAgICAgDQogICAgICAgICAgICAgICAgICAg ICAgICAgICAgICAgICAgICAgICAgICAgICAgICAgICAgICAgICAgICAgICAgICAgICAgICAgICAgICAg ICAgICAgICAgICAgICAgICAgICAgDQogICAgICAgIC AgICAgICAgICAgICAgICAgICAgICAgICAgICAgICAgICAgICAgICAgICAgICAgICAgICAgICAgICAgIC AgICAgICAgICAgICAgICAgICAgICAgICAgICAgICAgDQogICAgICAgICAgICAgICAgICAgICAgICAgIC AgICAgICAgICAgICAgICAgICAgICAgICAgICAgICAg ICAgICAgICAgICAgICAgICAgICAgICAgICAgICAgICAgICAgICAgICAgDQogICAgICAgICAgICAgICAg ICAgICAgICAgICAgICAgICAgICAgICAgICAgICAgICAgICAgICAgICAgICAgICAgICAgICAgICAgICAg ICAgICAgICAgICAgICAgICAgICAgICAgDQogICAgIC AgICAgICAgICAgICAgICAgICAgICAgICAgICAgICAgICAgICAgICAgICAgICAgICAgICAgICAgICAgIC AgICAgICAgICAgICAgICAgICAgICAgICAgICAgICAgICAgDQogICAgICAgICAgICAgICAgICAgICAgIC AgICAgICAgICAgICAgICAgICAgICAgICAgICAgICAg ICAgICAgICAgICAgICAgICAgICAgICAgICAgICAgICAgICAgICAgICAgICAgDQogICAgICAgICAgICAg ICAgICAgICAgICAgICAgICAgICAgICAgICAgICAgICAgICAgICAgICAgICAgICAgICAgICAgICAgICAg ICAgICAgICAgICAgICAgICAgICAgICAgICAgDQogIC AgICAgICAgICAgICAgICAgICAgICAgICAgICAgICAgICAgICAgICAgICAgICAgICAgICAgICAgICAgIC SjFVOjSWKbHBQpENVmOOXyLFKsTCChGIAiHOAqFCQpPLDoWTBaJQn7U2bmPSZsIKTiFX6lQIx8Ck6+DQ lZZqHtTLT0vwIrnX3AZH3dt2CmVAjjVCQlv0OpRIu2 GH2LUVTbSUhkUY0GIHljsw1MQBKlONMfeVJNf6tuPiRyBHQ8NSCzMiaySW1HIERvA0chjmAsOBRyJNVA MNskVASUMNocVTULBNWmFARtEbFuTmZgLBNpIHFbCYDMWLU0JZLzLfGnFFXgMBIoEeOaBUUMYUAzWCMs DnJvHHHfSJXdLqhrJAWYAUD5EEApQaRaSEWwBCVsLN 9NIYMcF353vqVcEGLTPc5+LRhfqbDiHtrDLwNaMFFqb0KyOCy0IU7FWQNaTzpfu8ClLgCkMKRRGFkmZB 9LINV0CLElJYTpKr5JCIPnA838gsIhTH1LZm1JIjBcWL6mid9PNvIpOZGmVcyQZss2WHubHO6HlNVrLB nAkVSzoKApV7AoM3YzbLRxdCYpbLYMDT4kqtAAMJ5o K55sLVBYVYMgkYE7XmI0MhNwZnMjBCV1HvQgQO8fQHjkPU3OGPV3RUyfZCOqKTBtK9uPXdFvZUOrZEMl gHayQW9KUzWiK7LfmkOdvXB4EiFxQLDBFt1+QBtunuSiAjrMMlD3DZPom6ErDAt2DH5FDXRkNQhsLT7Q CYFbsT5lVXavIG5DJfD0UPGuWBODBiFdR65kqIJkDQ q5D3UqNeSrIKXnAjgzIUVjRFfqQxLnUFUtReKuGKadHC1+ID4+JJcjGQ1PSSzokdFgAOFyQg0LDZQyAT NpJJ4zPFHhYXPgS7V6jVldQUTORdYuG4bzrezwHY0zSZIbP869vFcejeGtZPSeGYYiWw3TDADiSCU3JR OknVXiZlZkURGUGKvjHZ0UgESeCIH1iX7nNPatBZXn HARjI7aCIkBkoKcpCO83aPjmqjEvlARhVTk+Dy9WWU2bg9GaINw0xgPaSJmqGUE3KBepGKVjRQGxFEUf YRR1ZIL0MRFUFyRxUOBtTKEsEIatYAGmOKUxnu9ZTPFxPJP8GTzzRDMjCWRzCHXfADpdLLPcVAlzNaEr MIKsAWUcZA6BIoWyWFQfPLHhNRabKBOkUMTsic9VBQ OqYIGeBWLlFtMzKENoRNRpAJlnGOCsLWH6UWTbNSLxIFZeRC6MNbGmVPXxADt4UNVxSLLnPWIfii6MMS MtZIUsJnnmZOZiQABbQMTlZLocBZFrWHPvVIZ7EHSvGDGwZB9WRiMoZJUrYROfWLLmKSJvODLzyo2XJE UkTSChSnF0FhSwYPVmSIFwSJnhOQVyMRLeMHk4GRTl OEGoLX4TGdSgTRNwGCR4RsUlRRDkPBHscc1JGVSyYENuEgHjFwJpWWZwYWIjZQvqKLVgIEC1ZyO4NRCs OTIpCV4LClPtMCOmBLo9BeXcITCdAMOsvx1TLLKgNNLbRUM2MUIeETEtYHXhHDneLNHgPPUwRUA7USPx BCFuWI2VQcOiAAMdSzPsHSYbNFQaWXZsds3ZNUZlSP SjKUE5VhHsEDXrXLTeCBhpLGMsKPV7TtG8JEFrPHArRE4GMfPhBQVxSgw8TEAlEGXvSTGdsc4GKSHsRX FuKjFrOfTbJTZrBYQtVCkrCYXaPSLkFaT9AOSxADVzTD8ATwCoIKFeRxG6HrHbNDKdIUNgwj5LRJWcXR SxViZ7DuNmEXOpJWPoYVgfFVOfCYOzBaDgJNTlAHPt QX6CClIeQIAbUCK1UnkiYZApQUMqmp6ELZGlQFF7PcZ3CpYwFGQgVQWkSTodWJJpJCFcUfF6COHjXOJn II2RQvMeUDNlDKJ7TXhhLJMcRVDdja5NYXPdGFK9RIY1MOBvXLSjEQJjYJqiJHDeKPP8OzO6DXGfYIXa EH5MQtMiIHCyJNM8TSTzGBYlNRZwef6BKSVeYEM4BD x8BWOiQBMfRITxLDmiGYYnKBV1OGGgDSCeTKLpWQ2WSlKkNIXpUWeaRDUlCEQmOTRmzx7LFLAvLNA5Dv J1YuJkCRFbLGKoPEirQLSyDOF4XuBfXWHaTTTmLW0GPuRkMWQxLNg6JMXiXMPhRPZtrf8VVKPlDQA6NY M2OxLhNYLqMLGhYRqiCRWtQNT1JhWsWJKpELFjVJ7G GbNpSWWgUHy0FBqjWXGdACBole3FHARcOIA6ZBMqEnRgJYRyPCCdOHzyOUFeJEMqBGpvDZVuMOAtCU1R UmYbIMXhPAQqFGQjSVKtGUIpff9DHDRbPSM9PQZ0TiRlHBEdSJYsQVhrWWAbXDZqFxE3GFByQFIlSH9A WgHwVVTxSYS3NOOxKBPnBSVcrx4GUSQcBRV8Hlp3WY UpPAWoEKHkELbcQETeTTR8TDc3HVRsGDOcYT7ZMkNiPENhSsB0WCAvSSJcCFDltj3SWNQjUKQ9XEofLI SrNYLiGPSbKGpeCUPjWZO8QWffRYCuMNQfGR4AJrNyFSBsCzNdOUErFOGaCKSwsf8QKCHrKVT7ZZi5Gh GjLHHmGHQeKLqnUGCwCMsdKkbrXLSvKIZmFG8GPsHg IYHaJkU7HWMiAVXoEROnbn1ATESdTVR4VWv0CyCzGVKxCCUdYNwkPXNhZQakHAd5GKPkPQVkKD3VBgSq NGBjYdFyVzOwRZGqBUKnup1BSBYoSQC4Jlg0OFXtJGXqCKVeGBfqVBMzEVcwIEI3GIRpSVNrFB2MMjMr YBFxLsYyAgJgLPTeZUGbxg8UxOZuyZggwj4KOYrDSb 1KeRfpFOQ0IExjLq1ufFF4PWXzMDMWRt9RkkRnWJNjXMQGCGvnRJIkEXQoWbZ2OdJfMRMxTvMqDks1KW P6CUS2FHgzABg5ZLuhRvY7SFAyFyddZsB9PVExHCApItkpLTZaVTl5JEHrPxNwDuW+IA3xOMq+Pg0Kc3 MffaF5zmSrWGa7XvV8NH0FDFDBG3VGMh== ID Date Data Source [id number] 04/08/2021 08:11:12 AM EDT [facility] Name Value Range Interpretation Code Description Data Stephanie rce(s) Supporting Document(s) Consultation [facility] LQLWEb8yFlJQMrIh63/DOSwrPLZvb8GnFAnvJQe9DQrkNIHeK6UpTDF8zB9cKAY2KIvSTrNoPbJpCWN3 lbm [file] scKVwnsZ3/BmTHfb2nSYijITkbBuqOTNMPXDaC37DkAjKfCooiPw43JpT9yyLtPtPPjugT9odOXv/[employer] SERVICES SALES CONSULTANT [file] ICAgICAgICAgICAgICAgICAgICAgICAgICAgICAgICAgICAgICAgICAgICAgICAgICAgICAgICAgICAg ICAgICAgICAgICAgICAgICAgDQogICAgICAgICAgIC AgICAgICAgICAgICAgICAgICAgICAgICAgICAgICAgICAgICAgICAgICAgICAgICAgICAgICAgICAgIC AgICAgICAgICAgICAgICAgICAgICAgICAgICAgDQogICAgICAgICAgICAgICAgICAgICAgICAgICAgIC AgICAgICAgICAgICAgICAgICAgICAgICAgICAgICAg ICAgICAgICAgICAgICAgICAgICAgICAgICAgICAgICAgICAgICAgDQogICAgICAgICAgICAgICAgICAg ICAgICAgICAgICAgICAgICAgICAgICAgICAgICAgICAgICAgICAgICAgICAgICAgICAgICAgICAgICAg ICAgICAgICAgICAgICAgICAgICAgDQogICAgICAgIC AgICAgICAgICAgICAgICAgICAgICAgICAgICAgICAgICAgICAgICAgICAgICAgICAgICAgICAgICAgIC AgICAgICAgICAgICAgICAgICAgICAgICAgICAgICAgDQogICAgICAgICAgICAgICAgICAgICAgICAgIC AgICAgICAgICAgICAgICAgICAgICAgICAgICAgICAg ICAgICAgICAgICAgICAgICAgICAgICAgICAgICAgICAgICAgICAgICAgDQogICAgICAgICAgICAgICAg ICAgICAgICAgICAgICAgICAgICAgICAgICAgICAgICAgICAgICAgICAgICAgICAgICAgICAgICAgICAg ICAgICAgICAgICAgICAgICAgICAgICAgDQogICAgIC AgICAgICAgICAgICAgICAgICAgICAgICAgICAgICAgICAgICAgICAgICAgICAgICAgICAgICAgICAgIC AgICAgICAgICAgICAgICAgICAgICAgICAgICAgICAgICAgDQogICAgICAgICAgICAgICAgICAgICAgIC AgICAgICAgICAgICAgICAgICAgICAgICAgICAgICAg ICAgICAgICAgICAgICAgICAgICAgICAgICAgICAgICAgICAgICAgICAgICAgDQogICAgICAgICAgICAg ICAgICAgICAgICAgICAgICAgICAgICAgICAgICAgICAgICAgICAgICAgICAgICAgICAgICAgICAgICAg EQCbYEGuOWKxJQCdFKAsOTTdMFVgRIQtBQBbHUm8J2 euYFHyPDEjRL1zJNk0Er0+FItJZmHoROL6imWpyI3INA1yk8KbLSmxSVFyo4SfQEe0NL0OGUMqWNjwIQ 7FFWmdif0PTZGtACNfjPYVh9ymRqNrOQK0OAJjQbosUC1YLFLtT7qwyaZqJIVgTEOVQTypXMJTQUtxPS JDGCWnYGTeQwJlKeRpARCfHYJmLEGQRDE0HSQiHnPl PRSgRFQaKaCfFOTSCNJzPMTdLmBpZOAtRIHdTlxoFRYSNH1YOuJaD2EurT50JJJoVHm+Qe2FOU7ua7Yb LTk9BbHqIP2xzj6BXLrBCbNqY9SmlgG3QMK5YNQyRs0FXPMuLCLxnGX5ELHjDKAQMuHiX8PwnL21DAWW Cj4+DBrajvSzIbqJZcQ1REKwg0YmLHy6FT6WGHZlCA i7uCCrO70rr9BojMGhGwpvB6zzrLI4n9WlTLIlCbIAYJ6mCG8vEKZJFfMoeTM1JwH6DzTrFgMdSVQ1TV rtLV0uKBmjFI0DCWQ1UIktUXHfBLSgK5fOHvUwBDFsMAEigNqiAR8NJnCpB6QnvgRymBS8UxVvMJSAVu 4+GFswtuZaJttLQpF6TFLke5TkUEn7QT9EEEUdTRnm XW9IEOXhbM0bWHwxNL0DBwK5ACYjQRRUJeVpU39jtDMgVDu0P2SoEzJpBKXaLepqWLHqWLufAhPpCPCd WyBdDQogID4+ID4+CEbxZS3TCQjgmbRkWBXcVt0FMWRlSEPnED8fVKNeEKBuG0O9eDfoXOKVAbXlQ5sm wrurZR1lTRGrF030mYgyvhSmUBZxAIPtSb2QZSXnNG L7QJAtsYAaMbOgVJASKOsyPX9JaWVqTTC4dF5jOHdaTPDvNEMvA0rGLoWwwOdvEB73hHjhfsKqpZUmKT o+Oy5ZHM8et2XlWGw8jmQvQQwmXBG8SYchFLKeANLsYUFrZBW3XUC8SEKVOuDgMLKnDJBxHSjhLQLdKN Dbhr0MKETcELW9CAVqEMFbCWOiIQXgIAcqCCOkKLc5 GLW2KTYqBGAvJE9LBbOwZKQcKGWpOMtmBVMzVKMfzw0RVNTjMVVuNqodGsCyAETlUFIlSNeaDDTyPYB2 WHR0XHLvUECeSC1MWuJjSEPjTLo5NFIpTRDrNLYkai6FXZLxTSHgUhkbTLHzOMGoNCJwJUvtYQFtHKAm KTm4OIQfDDZaTP1PZpGkAQKjEOOiKVShJIJwZYPqla 2UOKJuNREiHRC0UEWgDPOaKCUrMWdlQYWxFJP7IvJ0UVMvLIDfTQ7WNbNzKDXsPLGeVPFdMBGqDWKzim 5GKPVeFPBaYaFnMiGcWYCmEGYqSBjqWRVhJRS4NlV2PCGyTUQyTK5ECsCoGMGjMOx6OuBlJEZiENPcbu 7SLJInCZUvRNw2BbTvROWxAFDgDVrrFOIfZJQwGYy2 BUMtCYRgVY7RZaPnXSJbFvE7BaRyAVGdSPRsvm0KMVNiYCLpXZM5VdAgRFSbRISkZDdoCFBdANM7ZiB7 BACuAOJaYP2ZSeZsNGRzOhp6QwZyIPLnNUGznx2PIEYuCCEoUSqsBXRcBWYxKVOiXMsnMMJzHFNdZCQ9 BVCaCYLnAY0IYpAdCWZrYyYiSkkfRYLiGVVcip7CBF PhLPUuLxEyBROhBOQmJVWdKGeeRGSwWRJ7Cdv3BLEmZWDhKV6IOyDkKGWqBau0ATGaLAXjDXZlcr1DWX GnQPZqBNy5TbHuXMImSECtZJxmSBEfOGD7QXTnEGFvNJZyPV6BXsJsTFEbMrroMnQcUXQmMWLdjn7FCW DtVAL8ELK7WvAzXDWrUBClGVdkCQJjMQIpXLl3MMHc NTIpOY7WUtSaBIGfDOG7MAAhPNMsVHMjzs5ZMKYyWEN1JJX8OjLuWDQoKXWqRFgeQRLwBZVcGRY0WCWq LEQtXU8DGwBmFKCxRXZgFlLvOODlECCuup4XQHEsCGG1Rlj1MYTvNXRwRJOkOHpbTNUsBGUwOOobZYUn NAHgOR6IApTsDNNaLDWhJVBoSLNsAIKdjn2ROIHvEG C2CIN7MCWcGXOyBOHdNWrzQGAhJPB4AVU0VTWeKOBlMN3YHnTrDWNbZDR0AubmDUEqTPKfcy0SASOwYR S9URBvDVYdNPGuIZInUJvlVXMzTCH1QMD8GKAkPVJmGK9KZqVwJDExMxs9MULnSNHlGTAouc0THNQvEX G6KTIgJQHiBELgAECdZDeuFYKeOTvzMXedJZOaXCBu TP1CZdQcHQYuHqEmVhOsSCWkRYBhfe8TTROtPQN2PPK7HMCtQRWaIIQnSLtdQDIoTOw1PCr3ECRjSAPf YW0VJxAiKSVhNuEdLhUnDLEgNOLgdv9LNTNoKKH6DpF2AaBuWULiKBWeKKhcAHKnALg7OXy6PHMzZQHi FI8XUsQcMDMiSoU9LmBoAOZwBSKfam2IRMItMMO4Km o0DNZsPKFlMYGdGOueZWRxEOw9CCL8ODAhESGuXM2MSbGtFHAbMMJ1HwEySHKbHRKppd4UMTFqUPM4ET x7VnXvVHThXWQzNWfgKTTyUDc8RTK6KBLeAVMpCL0ESuYxUULcOTU8LUowCLUzQPHybj4RIBMpXNO5Gb LvZANpUTXjBKYlXApcIJQfSWn6ApN2ULImCPBzPB3B KsSlCLIyHGu3ZVmuKSGjLMAsut7AWIZtTJH2Hvm1NKNfWTIjKEZlAEh0afEwcGIfJQw6SN7BH3TkklZj CkCNMm5Fl817IPD5OXAvTy9UR8auJv5dJQUsWPUMSt4PERu5ZYHxKUB8HFI4CKTsUqEvYxexSAD9SEb3 MTVlODRmZjE+KUv3VOC9NNIsHky0RhLnHiSvQXPyXR t4QKEoJTG6DFAlCV9pHNEOKw3+HWfjeHZtnFahTGWRLav9DAhtYQunYWNZUg2W ID Date Data Source [id number] 04/07/2021 10:13:[address] [facility] Name Value Range Interpretation Code Description Data Stephanie rce(s) Supporting Document(s) Consultation [facility] ENRDKo4pCrRTVgTm58/AHQopTFBki4HsHQucZTm1LNcdOYZlJ3SiBDG2xG4gSUV4HQzVYpZeQhBtVWR6 lbm [file] XVD6VaR6HZJ1RXm1V4KeMITtNYRbCxDqHA5TKo9ADkO6YFP0uXZmWc7CWcP3ONqBDlZgLT2JUAj= ID Date Data Source [id number] 04/07/2021 08:19:33 AM EDT [facility] Name Value Range Interpretation Code Description Data Stephanie rce(s) Supporting Document(s) History and Physical [facility] YRAYYe6nMlHFIuRx35/LPPfaNEHnu3DaEMlrVVo3FWjnBFAwX3RwWTZ7lU8lALS4NLcDUfKsVlCtWCW5 lbm UfZmvDCwSrIJPeLjfEEoIgTJqgPvtjqALeJB6QuQC6WXJvR84bAYYuYXLkO1GrXNO3UMl+Db0COMEjuK ChHH1LYuvO8I2ch6vSNz2+wP2HRQ/otUFic/m2pL+ercH3pPSVJoTGeVpHjs19arJlsskzd8glivT1LW VT+bRGQbrtvT2Wc3BpiIpmoL+WECo545n3QyHF33Dm 3+ebUI04WrY//DdvUqf30ZNBR4RYebY2Ba8CW5P/A/2mX76hrY0PmbslqlPHMjqomnsFt3DhHgZTNfr/ qsEvSodhNpKBdwWodQH+KbV6Yxz0tMEBDRckCsJEJJEIUlLZoKjysT9GBjlL75PjF0cPSX7wUFXbZN/7 rY613CJYMDjyrCd9t0q5AKJXzfFyjZMYXATRpuVCP/ 2Yw92B+nlj/uZqtDnCYL6kwpLc6oOBV8dJWoTtoCwYdVqSskkp7+uvcGu/KeadNDB+zH1jaogSljn9en oef6t58S7PiUr+LLonMqNCzpyQZOx5qV9P4QLDg/7i6KpUYaDnEYzhI3WYfZy6hM9dwSvdf+YMyz0OLG PXDyXlppSv8tk6pLwoHtgarPoBrQkM4PqU32QsuxH3 h35bKLGeB6NKYt7YN7dRYlbVcOuDgX/+W83nMJuholE/Hk+HV0L6+ZWkreoWVhOwuNbdLjcU1bje1UUI Uy9EV70j3PpDr9fqGWQkxY51BsBr3AhR24m0PwQ3ZE05QjZ7yx6m/qNwopVR83wbFCgzcxbrhbW/c/L+ Q/es131/fscdgK5csSN2xxfqfKyQLmOpN1qPmv6nKl fmaOQ1j+z/ara8f0oBuRjBvApqfE5YPnouv6MaXtg8NvXZrup2+NjWuRvQqumrEmztvf26bGEQAS4Rvl K1EzB3giMdnFdntGQ6J29JSTDnoAXEMPRnQE5F5wtLFSNX3+K9mEZuERTDHnb+RQiI60qckk9sjbeyVH CzT2mgzn8b4z3FlsqnvgIapkF6ssjcAzNYsfDgtjn8 [file] ICAgICAgICAgICAgICAgICAgICAgICAgICAgICAgICAgICAgICAgICAgICAgICAgICAgICAgICAgICAg ICAgICAgICAgICAgICAgICAgICAgICAgICAgICAgICAgICAgICANCiAgICAgICAgICAgICAgICAgICAg ICAgICAgICAgICAgICAgICAgICAgICAgICAgICAgIC AgICAgICAgICAgICAgICAgICAgICAgICAgICAgICAgICAgICAgICAgICAgICAgICANCiAgICAgICAgIC AgICAgICAgICAgICAgICAgICAgICAgICAgICAgICAgICAgICAgICAgICAgICAgICAgICAgICAgICAgIC AgICAgICAgICAgICAgICAgICAgICAgICAgICAgICAN CiAgICAgICAgICAgICAgICAgICAgICAgICAgICAgICAgICAgICAgICAgICAgICAgICAgICAgICAgICAg ICAgICAgICAgICAgICAgICAgICAgICAgICAgICAgICAgICAgICAgICANCiAgICAgICAgICAgICAgICAg ICAgICAgICAgICAgICAgICAgICAgICAgICAgICAgIC AgICAgICAgICAgICAgICAgICAgICAgICAgICAgICAgICAgICAgICAgICAgICAgICAgICANCiAgICAgIC AgICAgICAgICAgICAgICAgICAgICAgICAgICAgICAgICAgICAgICAgICAgICAgICAgICAgICAgICAgIC AgICAgICAgICAgICAgICAgICAgICAgICAgICAgICAg ICANCiAgICAgICAgICAgICAgICAgICAgICAgICAgICAgICAgICAgICAgICAgICAgICAgICAgICAgICAg ICAgICAgICAgICAgICAgICAgICAgICAgICAgICAgICAgICAgICAgICAgICANCiAgICAgICAgICAgICAg ICAgICAgICAgICAgICAgICAgICAgICAgICAgICAgIC AgICAgICAgICAgICAgICAgICAgICAgICAgICAgICAgICAgICAgICAgICAgICAgICAgICAgICANCiAgIC AgICAgICAgICAgICAgICAgICAgICAgICAgICAgICAgICAgICAgICAgICAgICAgICAgICAgICAgICAgIC AgICAgICAgICAgICAgICAgICAgICAgICAgICAgICAg ICAgICANCiAgICAgICAgICAgICAgICAgICAgICAgICAgICAgICAgICAgICAgICAgICAgICAgICAgICAg ICAgICAgICAgICAgICAgICAgICAgICAgICAgICAgICAgICAgICAgICAgICAgICANCjw/qLOdV0npnJUc jdU8T3ghZw3GDl6HIZ6cp1BaRDJnTLmcveIsSeqXDo XxQDXaGkyMHuw6YDvgHZ9MkKIoM7ZzM9NrRTizSL1WMTNzODIayAZrZVBaRIHhNyP7SRPcGCbvDI5WhK LnSRxtZGKvFDCqSmOhXRYxQSFfMQXtFYPoWIRFBOWqTFDoJvVyLGQtAFAfZOryIFBTCXQ0IMVlGwZbPO CmAXVjKjCrATCKAHI8BWZvNcNhLrFvRLOuFC6JVGLc V861tcEqVKECPj3+EWqjuxVpSpfDXlKeMPEie4JtBRa9NI3ZULAqPllhz1DvYfQjASFJFNhxUE5KGYT1 ZYG9YWYmTe4ZUBUgS463ncWyMN9CNq8PQzFrVL2btx7FNyHmMWEsKveYOhr1AAkbSP7VwGTqBQgMNyXv QfovL9kbrJU5c0MjONKhBaUXLB3vBD6wNSHDGbAuzV Y3CkH7DgVkWdVcQAA7OmozMX8oMNtoKE5KMEP5JUmcNYChWRLtQ1rVXsMqRDPyINKylShiVF7QNpCuO9 HyctOdkGJ7OsVuJQYNHh5+HDzjvnFdHvxFJnL1ETEga1MvTWb4FP0YSXGuQOduVV1RNTVmkW9pVZpiBV 0ZKrL1ISVcQIITWbSfQ15hlDNdCLo5N8BoTpAcFXMp RmlsZXMgPDwvTmFtZXMgWyBdDQogID4+ID4+ZNrrEG0PMLpmogWqHOHpWw5ENKRxRNDsQV6hZXLkNEDn T7B5yDioHJRJYfEaZ8oecukiQL6lTELoT133bImyfcKxCOFlBPDeHr7BTPMfSFQ6DFLngQWyNuCpVBFK CHvjKF9MnWOrRRZ5eD4mSQwhQAJiHABhI7qHYrWiqM udJC34tFlqtoMdkYJeKFm+Cf0YJM4uo7BpXWk3gqYqHRrqHGA4BUgcLPEgYHNvDCYcIBS9SUD2QGOWMt WfVCWiXOCiUCfbDVVmRUWfov9ZCDTqRFO7BhpoZvSrFPWsLDAgMPisTZCdRDd6KFK5WHXwSPTcAJ9CZt ZkBPRaYDVvHBqdSNFwVRBzar3BXYZvBDDvKmw6EkHl XRZhTTIiQCqbNVYaOBH7QXhbBALfWNLrMQ0QZmFkPKXaEKb9CUYmMSXuDLVpnm4RHCFjSLXcPcqrEMJq GEDfEPGkTMqmWOFwSPCqWqStCGJwGAIxTF7VNcTeTVGlZUH7KIEvUEBkDLCdzo6XXPBuGTLrSHX1PQCp GLEzWDZyKLbaZYNtDZX4MpH6DXVhBHYdCS0CIrZnTU BvTGjgPchwAKZyODBbrz3BRHKkDTWfFbV9BQBsZFXaZVNsTGbePRHfAMO4Kwy9NGPiRDZoPX3NPfJxRJ QjNUk2KHDlTDIlBNDywk6OWRYfDVAoGxFuAJVnWWDbDCKoBFpqXUAfBDErMjSzXPOnVZNuGB4OAhSoKO VmDjB5LBXnCOJgOZVgfh5KIRWsUXYpJFS0QjEgVZVi TKMbCDzdDMFgGTR4VFS8JGRlVNUiTW5PGkJbNAVaYzwnPWFcCTAdVGEhne3MXZPwXOPdRdA7BRFxQMGy RFBtYBzeFQFdZOCtIHZuWALkAKXuRS0ILsEmFDLlIyF7QGWiXIExVVGrxj7BNSDoCHFzZyFgCLZjJGLy YHBjUUpnSIJlVYW3Gdm8CSJwIGExPF9VZtSvEIYhSv z3INLgAPUeEASbtw3KILLyCSD6CXc1LCViTNYxEEFeMGhaTBZkVVBlXOKgHUMnEFSxRU1TNkDtQSQlJE RkQWNnKGHhUSNwtd9NZMHmBDH5WlWcDeHeHOYrRGGdMGhzYWLuGKWoLSE1MDOcNUHcKK4PNdMjRGBoUR E7ZZWaQBItFWOiza3RTBIeYGS2CfV4JmUdASZvMVYc SExlMVKbCHWcXnQrUPAxRKLyZU9QOvBrNSDxPTR1DhPoSIInOTVnkc0ZQIHkYIZ3CPq0QaWuCURvMLAz GCceWYHjCCI6KDYcYRHlXGUhSN8PHnZxJRIlDKQcPNKfXQRcRVZqcg0RRBYnPBX3TmH2VtYaKJFuHEWr EIlpMKVzDGK2GSFnCSVqWNTpGZ5KNoMsAHJlSNZ4ZZ NiTQYjRHDuiy0WNAIrNHU4YSZ0ISNiIGRrSPWzIGytARQnFBY6KCRsMDBmYONiFF1AZjDfJYFdDUs6Db RuRVXrWEKnfv2DRMXkAFO2WEs3YEErPXWzEVOrGJbiPRRkJXY9ZVK8XGKmTNFeQT8PYjNmESCoBrA9Mq OqPOOuDCUmzz3LAETcKNN0GSQ6KQVyHFByRBFnRFsl JILsPZT6VKYgJODzFXBkPV1HMpWmLFTkPoY8TTNnMLYvYOScbp3MWXYnOEJ2TOq7ROOmTOSdEUNhMWdp OEBaWDD5JWN0PYEkEDGjMO4AWiLtQODoSlXeNNFeYROcZDUpig5NHTQfAFY1HVYcTOUdGOBaCXLdZOim FXZsEQi6Aor3HIOmUAIkKH4CFzBqPEEmGrknJBRpLV AlURJkzh9PRJImECH7RkQvHVXiOXXuPIKdKYqlSLFdODu8MRA8KUBeANKeUC5VSzWjSSWfJgt4NLFhWO InMGDqhn4RRFJdIYM9RGL9ObJrVYFuBDFhOUjqKSDfQKs0GpQoEHGfGRQoDS3EVxNnALPfJub1WEFoAB QoGNTxtg3TRZPiSKH5LXbbEpXrDQTwLZZcCEr1dlLj xEDkDAi2PN1XD8EqxmIpYvZVNi7Je506NCF1TXVaRd7OM5yvHp9yVMVaXBQFFh1JVSr7ZaXiZTIsItPq OjHeNYBmTvf4CpwlLLY6PoU1IzK9XJD+ERc5J6W1NwVoXTQiN8W1OABdTugkIrV3VwnxRHmeTyUjZe8q XSANCj4+EByeaAAtaWslFCVSNttgERkpQTkmFVGTXt8Z ID Date Data Source [id number] 04/05/2021 08:52:[address] [facility] Name Value Range Interpretation Code Description Data Stephanie rce(s) Supporting Document(s) [facility] WJBUVu2aXmSZYoXgf1QaMvLmLLOvAB7auxt3F0P4rWIyY4PjhNDxn4cuF0HfE0TlQMFeCDJKZW3MkVOc jb2 [file] OonkkON863wtp5Fy10x4au9jL8Gq10JMzRDcnXw+Elijah BfNaID46o9nchJob5pLStBx6pbpFvO8VWK8VD/LfsjRq6FQNr+vH09Y3nuEd9QDZwb9zaG/1wbvVuG+s vq9Y4YwNvKgF5HUNprtOrel33sJhx5I5CRC5GVU+l3Sx848H76Fj5P/Ifj3Pbby55ch6I36bp4t79Tcs bujG25V0c+rWh7OzQw2eIByCKeu5T8iA0X1Z4fb55j 9Qaa5lAoU8ui27lHdqft/f4aLVh9p2iRzRY3m3dgEguO4bnhj/PFv0CuVtSuxem89nFmWA4w/gj7q6YP 3d8cLKixqa5pvH2wLkHHsx+H0fFyyV2e7HFn61eyWB2u9fc7Moudy0nhaadC2u9wBrepfwIgTQk4+1C1 giqYM2hZsy5hPVMp6C7Hn8lZKHhCwOZd/Qiyl2rwan yBnSUKp8lLkHCs14cBeIE7kHBzb7waX+0eUNXz/OBzyA9P9l9a+7v2ks59L2UOPJptvrVP/MOq09dYQr 8/Pe1d2sb8p6tKLrnfGP9f2a4cKFC019VM3fi3+dBfD14dSo0hp/ervTjVz4qXn/pmkJ2Sg8DqpUNob7 8/XSUosD1QbUh2kY1lEC9qLySE0y9Hgdos8RtgcDR2 7SBr+nCJ1CqOetoy+0n1ad9VOsQTA7hYeLTK9e8mxizrJlccaOXv58xzXJHe61NC278BtosoN3wX3cr5 ZcnzrnYgYQ2dE7nDTlMSbqGyQ30/SYD28+8MapcMH0qKf5rzQsGAkx0kWn4oG+wh91r63Erif91rA38y N26gOb3IRooC0h+T1sVc5g3yOxqOfvZdi7uUH8QYur 33p4i+XW41+e+G7N+I311TDo6szOdur9u3i+HnXNyxu+Ei1+O8GlOS3jHp86HYWbx1w8Ss/9Cy5xIHkQ Y5w26duG9a7pi3GeJwWEae0o3QCx4Cdj9aCwqR628dRkFw04fsmrFgy/5TpsviXe/LRKW851CdpoPdtt Nma4CQp9S7K0t8J1r3szQkrizeIZsPquppneRauhse BbCz2xQmIbTsBNPnGMSm4zcG3k0k46HR+axcOLpy/j6ct4+qAMfNa7c7qciAoHVy+91MJylXHvVhmXap Gui8CSH3t7bWhzAZ8H8crS1n9w9pTtm6g+1BlPe/H0sheYEfiQu58F6D+5zxmdm02qhMT864IPt76nE9 zL/SbQ9zOjKxd7K2+6FtT9mEzXgKth5PnFo1vtRI98 2JQi2TSJcpdjKgmPkfR4le9y+BzjY38pqqvu2rc/kL4z4exB1115oMh2fCf6eFr8fWzfeCkXyPgnQ8+4 kvpI1vHBzT2Rbqe9nV6cb+3T45Awauff+V837cstaa+2J77b/OG4tGS1kdybe9A1c+F/gC8imG6VYU1l LTtk6mo1/H7BLhf6xrr3bA+1D8eitP/wfuL9/Lx3tb sKnu/4l2Ad40vRybQbJ50JrB2228REstv9sLWB/BuUnhijjySHCwAh4ewbjvm/E/o2RY8xFl//uLq6g4 wSKJdBNDOzK9GZn1OkCwy/1/xKhuC38bguWYLUiGBBn1+pvXbbO/Pzbe/XCvi36xa/9f3kABIMli6y5/ Gt4wjc943x8/Kjd8vdr16ls9seW9+fnb53+u0B07iD 2VT+zv8lj9e+/oC7zkwF0b+2Nz+v1ujz+/566w1Y5I1d8910634U2dgjnXlfc4R0+Q88C99np3t52N+L 4twiv7b5+X/O083iVg0Y5ikcbnM+7c3Y2+3Fz+4v3nZ/8bYHfT/o9/ME01L00twry+3Vc/uLk+3Pb5ue 72/AoMP3KNj+Plt+fn7b5/l50/CqHN87UbnyqmtT7I v+fn/68/MOcJ4E08H+n/W53bt94tI6OfjLm/ar24gErg08j61oyg+/XkP5OO2JsY+voIqFk9RuOWJ/9Q mK56D+G+P5J+jNo7spGYr1okr5eghCa+/8jEZcIglF44IeV4akb51cQ/e9j1ZUpa/noO/j+/7hALqea9 OpsmS5qe1z7Y8knryLY+l7o++Alpv36gl27mZuPmfD 22+eBPjnpkmAP2+QuFo50107Y4B8/K6qomEy+l929vj5MiR8qoC5o88bXW9obml+N/r32487IGPi43YJ RHcblSqOqPlTRg5Yf4/vj9/MP80cc2zsv/rQRPU3RLYd5CDDCA+4uMLHlxvVesr5sP10Q0LFgDld5621 OVL1A94y+/5I+/vsX51/lW34ha1Nhz/o+03lvPHqZj 8YE3dNN561VaPQ1hdfd3/nAXQtMlBpP32+iQ2l5OJASEyj8Q7s3jcyl8Z1w/69+T0gLPlm9SkcyAiR5/ k93/sfg1V8InlUrw6UjwdDd18Djbv07s+T/Gp+SY0qdtog4pJ50diF6e/6PT1fe/VfGG8Z86tay89c+e Q8fCuj5f01D2/9Bn9Ed3/+WNb9fJ/ggFwk98Ugymlh 67O/39zxGdf+7zugy2XhH/Nw6jmma8/x+gtld51IFLfim18ri5gqZ7vico/xb6q50ufoh/748/HHn48v +n6/+PHHJ0/au6hCdo9dtDs+lTGQ/Vc76UnhVdFvbG76cixyqwnS7wv49bismjf6+UJVxzXBVq7msz/0 vcL8b11b5Zs5LlRiUOfElc/rrRcO+FX+Jl58gl+d/P mCx9b17ep8XjG/Ol+VfaUbk5MoRkJ0Tj/v4yTqlniy2M8wu6gT5//xf7Tak09Adk6//Qe6YU1m+v7Q90 Hfx/v+8qvvs3/9jqtJnol3YcV0/Ou4LW8D+v2k8n/cNP8Pg55c+8vuT4F0/Ps+++hmA9F4preRDOI5a7 heFrx62EsMU7ugX7/n3/tzo0Rew/VH6WsSC8VdY2Jw 4I9f/T3v/KaZ7u23Ud++H/l5/L7P/vjjV3+fb2z8+NVu2R9//Kw5eAH06u+13Zq6ixB1k26j9B6k5p/V 43W6l8Xt4/ubbeDvs+Nbo25te1+qgb/P+s6tr2rvx0ckwg8/v900A9/n+4yth4Pg8920m8UPcH/0/Donald 7/O9z+mgW6WcnWrY3GxpqkVAkc7kwZy3qMG+Yqnn5y /oreFBwTT9D74Wl/03kl/eHg4Lbngjm/MkfI2Ta/pGgF/nO68a5G2E58q+X/T9pu/2V52lJTXlT76n1Y 7iT1Y836ToinEIz0T9Xpui1anQg80r1X29h9M5W8Y4ZZ4cdj32Ik/3uxW7v73d2D9e2m68B/C8tFgWsm /sg6ui046oydgmr8n0/3Dq0L8t598nh4h3E//GfPw5 Ur/PnWnQQ2W+pt9vqj+1l/JbMS5wPM8Cm+pGaM3W73Tlhtevb915P9gzJ07S+mtrR0r7K9/Jp77Xj5d6 ax6mD7Xbk04IsM8z/3c8Wvln1lp7giwDjv/3+8QqNQ6zYWr9q/hVJL/K8eryq+S3NwfA+/zx+MX5WkUz pR+SX6FMp/Lp+ocWi9Fn+Sa/wudD3x/0Cjd4s0tRpe w1KmWbBu0slu8z0OzC8Dz9/rXkWffrofaM6fmusxWk9aete+HL9zx26JvAeqS+EC6Lh3Fgs188TVJjMR t9uH3ag/LOlSzuovJa92o6rpfcWH0tSq/5981t71i7vuxiIO+bxqtN4/Ef51ilWevj1qvi+vce56/Peñaloza/ [file] 9fmJ/LbcHQpdxk2CjaKl+1I3bjj7W54rZ4p+Brionna/N8fLp9CrpObGxIBZmniDY/xHZhQKY1lwyQk42i3g Y/6qkq0CTmvDtrdadIGhLh7vlJG92y4hU17e7n8Pmy Uwjj1GqvJlm6gl5b5KfZQoxEBcT8Ol7AsbXV6YvG154nvuO+b0+Dw/cP5R1oE5mg/j81kE81YtxLkMwV lh98DSdhkPd5zZef/VeaN0ZG2tw4Y0UT5pZ5KaZi22nz15XlLJ4awy7ZtN2N2G/CsoDtnGrNt5dKfHdU KwH3iHhGPqn1vMW0KbfqvSlchUcwEZK+P9hRq7EF0B h1h7gmZqWj4ByZxqwvaS6CuSXNfmFo05SUaMQQkWVyNfaKW+Q8ihtm562j1zKPZ8xsU+B4ZuyqKCko9O wEMLELj59mItZ4v4gzlokVGvMuG9y+i70/f8zOZFF/q0tUSZzyQ8U2IlQLXQ8w3hR8stXib4Cm+maría/O [file] Z5d0CQKwNCzmRX2lpsJnECVqBpzcFp0brQJ1UZMpRjwQCh9Px7LspiP4qwGuPdR3WEG2BrOoHC6O ID Date Data Source [id number] 04/05/2021 08:52:16 AM EDT [facility] Name Value Range Interpretation Code Description Data Stephanie rce(s) Supporting Document(s) [facility] AFEQFe8pJxHRJwJok1GjSoYjITJnPG4itjk6S6P2tLVeO2RfqDVtt3vyI8XbU5MrXIYwQYCNVV0AbYUf jb2 [file] /u7//oy12f6Wu2t4lyxwJjx2/X506i+tj8/ CFX6htcAuz+QdqKOfP+moHPrvPVvCfP+jtqk4VMA7tvOX1E3T7tPxBwKxyl54/r9sgXa7zkfCP37s/jK eai+p+yf24U0HiIlI1e1xlypyjnEi13/P0QaRqVz/E1pbftakHFriIoui7m9tuP/4j6el657h9q1d/u9 r3O/iuEJ56i/meze68HakY3H9GsRE3XiftgmN2b1iz nfer/7YwhPVdk51ZA/K53qv/U76HrQ/xZpnt0rYE4b1lUwtOwVO5U8+sshl0J50jIG6DbHr8/5ys87B3 kWjr8jju0jbdBqBxKb32yMcJ/Ch9frXK7Ej0/WO8dFPqLdcoSmseNKGNq2EN6AXXt/J12fdP+idNbXH2 /Wt3/OcuK6vwET+tCqxy6Ad7r44qYj415rZN/8zvri caaAJ5YcdQ/p+sPtn56Lul7tvOEugi+bzs66wAdwTziv/X1vo50IrVKDpD/JGBte42KYH625hm4u376K wz/Xl41hzs5U/dUZMjVWhdts26/5uKrXYDOA12TRumvE7Mb0YrN/rW0a3323j62WuW+uT/t+F46rs247 50s5ifZPo54/ja7b7/qo+89Dv/N63eO/67Ou++969p [file] uzWo9zJuPrRKKWZ3Eua2YmCAIeOGHGJo7+MmK4SBW8xVFfQam3KHJtZOfkWCFKBk== ID Date Data Source [id number] 04/05/2021 02:07:06 AM EDT [facility] Name Value Range Interpretation Code Description Data Stephanie rce(s) Supporting Document(s) Color of Urine [facility] Clarity of Urine [facility] Specific gravity of Urine by Refractometry automated 1.016 1.003 -1.030 [facility] pH of Urine by Automated test strip 6.0 5.0-8.0 [facility] Protein [Mass/volume] in Urine by Automated test strip Neg [facility] Glucose [Mass/volume] in Urine by Automated test strip Neg [facility] Ketones [Mass/volume] in Urine by Automated test strip Neg [facility] Bilirubin.total [Presence] in Urine by Automated test strip Negative [facility] Hemoglobin [Presence] in Urine by Automated test strip Neg [facility] Leukocyte esterase [Presence] in Urine by Automated test strip Negative A [facility] Nitrite [Presence] in Urine by Automated test strip Negati ve [facility] Leukocytes [#/area] in Urine sediment by Automated count 2 /HPF 0 -5 [facility] Erythrocytes [#/area] in Urine sediment by Automated count 0-3 [facility] Bacteria [#/area] in Urine sediment by Automated count [facility] Epithelial cells.squamous [#/area] in Urine sediment by Auto mated count 4 /HPF [facility] Mucus [#/area] in Urine sediment by Microscopy low power field [facility] ID Date Data Source [id number] 04/05/2021 02:27:17 AM EDT [facility] Name Value Range Interpretation Code Description Data Stephanie rce(s) Supporting Document(s) Amphetamine [Presence] in Urine by Screen method Negative [facility] Benzodiazepines [Presence] in Urine by Screen method Negat [facility] Cannabinoids [Presence] in Urine by Screen method Negative [facility] Benzoylecgonine [Presence] in Urine by Screen method [facility] Methadone [Presence] in Urine by Screen method Negative [facility] Opiates [Presence] in Urine by Screen method Negative [facility] Oxycodone [Presence] in Urine by Screen method Negative [facility] Fentanyl+Norfentanyl [Presence] in Urine by Screen method [facility] Service comment [facility] Results below the indicated cutoff (ng/m L), are reported as"Negative." Note: for medical purposes only; not valid for legalor employment testing. ID Date Data Source [id number] 04/05/2021 01:30:00 AM EDT [facility] Name Value Range Interpretation Code Description Data Stephanie rce(s) Supporting Document(s) SARS-CoV-2 RNA 2019 nCoV Real-Time RT-PCR: NOT DETECTED [facility] This lab was ordered by [facility] and reported by [facility]. ID Date Data Source [id number] 04/05/2021 09:15:34 AM EDT [facility] Name Value Range Interpretation Code Description Data Stephanie rce(s) Supporting Document(s) Hemoglobin A1c/Hemoglobin.total in Blood by HPLC 4.7 % 4.0-6.0 [facility] (NOTE)<5.7% Average risk of diabetes (ADA)5.7-6.4% Increased risk of diabetes(ADA)>/= 6.5%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 Hematocrit 39.0 % 37.0-47.0 [facility] MCV 88.0 fL 81.0-99.0 [facility] MCH 29.6 pg 27.0-31.0 [facility] MCHC 33.6 g/dL 32.7-35.6 [facility] RDW 11.9 % 11.5-14.0 [facility] Platelet count 283 x10E3/uL 150-450 N [facility] ital MPV 9.7 fl 6.9-9.5 [facility] Neutrophils 68.5 % 34-64 [facility] Lymphocytes 23.7 % 25-45 [facility] Monocytes 6.5 % 1.7-10.6 [facility] Eosinophils 0.7 % 0.4-7.0 [facility] Basophils 0.2 % 0.1-2.0 [facility] Imm. Gran. 0.4 % 0.1-2.0 [facility] Abs. Neutro. 7.95 x10E3/uL 1.2-7.6 [facility] Abs. Lymph. 2.75 x10E3/uL 1.0-3.5 [facility] Abs. Metcalfe. 0.75 x10E3/uL 0.1-1.0 [facility] Abs. Eosin. 0.08 x10E3/uL 0.1-0.7 [facility] Abs. Baso. 0.02 x10E3/uL 0.0-0.1 [facility] Abs. Imm. Gran. 0.05 x10E3/uL 0.0-0.1 N [facility] spital ANRBC% 0 % 0 [facility] ID Date Data Source [id number] 03/31/2021 12:19:00 AM EDT [facility] Name Value Range Interpretation Code Description Data Stephanie rce(s) Supporting Document(s) SALICYLATE < 1.7 mg/dL 0.0-20.0 [facility] ID Date Data Source [id number] 03/31/2021 12:19:00 AM EDT [facility] Name Value Range Interpretation Code Description Data Stephanie rce(s) Supporting Document(s) ETOH NONE DETECTED [facility] NONE DETECTED ID Date Data Source [id number] 03/31/2021 12:19:00 AM EDT [facility] Name Value Range Interpretation Code Description Data Stephanie rce(s) Supporting Document(s) ACETAMINOPHEN < 2.0 ug/mL 0-30 [facility] ID Date Data Source [id number] 03/31/2021 12:19:00 AM EDT [facility] Name Value Range Interpretation Code Description Data Stephanie rce(s) Supporting Document(s) GLU 106 mg/dL 70-110 [facility] Patients taking Sulfasalazine may have f alsely depressedGlucose levels. Patients taking Sulfapyridine may havefalsely elevated Glucose levels. Patients should be drawnfor Glucose before the initial administration of eitherdrug. BUN 15 mg/dL 7-23 [facility] CRE 0.590 mg/dL 0.500-1.300 [facility] GFR > 60 mL/min [facility] CHLORIDE 107 mmol/L 99-110 [facility] NA 141 mmol/L 136-147 [facility] POTASSIUM 4.1 mmol/L 3.5-5.1 [facility] TCO2 24 mmol/L 20-33 [facility] ANION GAP 14.1 10.0-20.0 [facility] CA 8.6 mg/dL 8.3-10.7 [facility] ALKALINE PHOS 125 U/L 45-117 [facility] TP 7.5 g/dL 6.0-7.8 [facility] ALB 3.7 g/dL 3.5-5.0 [facility] ESRD Dialysis patient Albumin reference range: 2.9-4.4 g/dL GL 3.8 g/dL 2.3-3.5 [facility] A/G 1.0 1.0-2.5 [facility] T. BILIRUBIN 0.3 mg/dL 0.1-1.1 [facility] The Dimension Mason Total Bilirubin is n ot recommended forpatients undergoing treatment with eltrombopag (Promacta)due to the potential for falsely elevated results. ALTI 52 U/L 6-54 [facility] Patients taking Sulfasalazine and/or Sul fapyridine may havefalsely depressed ALT levels. Patients should be drawn forALT before the initial administration of either drug. AST 30 U/L 6-38 [facility] Patients taking Sulfasalazine and/or Sul fapyridine may havefalsely depressed AST levels. Patients should be drawn forAST before the initial administration of either drug. ID Date Data Source [id number] 03/30/2021 11:45:00 PM [facility]T [facility] Name Value Range Interpretation Code Description Data Stephanie rce(s) Supporting Document(s) LCOVID-19, CORDELL NEGATIVE [facility] This lab was ordered by [facility] and reported by [facility]. ID Date Data Source [id number] 03/31/2021 12:12:00 AM EDT [facility] Name Value Range Interpretation Code Description Data Stephanie rce(s) Supporting Document(s) COVID-19, CORDELL NEGATIVE NEGATIVE [facility] Methodology: Isothermal Nucleic Acid Amp lification for [...] Emergency Use Authorization. ID Date Data Source [id number] 03/31/2021 12:33:00 AM EDT [facility] Name Value Range Interpretation Code Description Data Stephanie rce(s) Supporting Document(s) PCP VISTA NEG NEGATIVE [facility] MINIMUM LEVEL OF DETECTION IS 25 ng/ml BENZODIAZEPINES NEG NEGATIVE [facility] MINIMUM LEVEL OF DETECTION IS 200 ng/ml COCAINE VISTA NEG NEGATIVE [facility] MINIMUM LEVEL OF DETECTION IS 300 ng/ml AMPHETAMINES NEG NEGATIVE [facility] al MINIMUM LEVEL OF DETECTION IS 1000 ng/ml BARBITURATES NEG NEGATIVE [facility] CUTOFF CONCENTRATION IS 200 ng/ml CANNABINOIDS NEG NEGATIVE [facility] al CUTOFF CONCENTRATION IS 50 ng/ml METHADONE VISTA NEG NEGATIVE [facility] MINIMUM LEVEL OF DETECTION IS 300 ng/ml OPIATE VISTA NEG NEGATIVE [facility] MINIMUM DETECTION LEVEL IS 300 ng/ml ID Date Data Source [id number] 03/31/2021 12:13:00 AM EDT [facility] Name Value Range Interpretation Code Description Data Stephanie rce(s) Supporting Document(s) URINE RBC None Seen NONE SEEN [facility] URINE WBC 0-2 WBCs/HPF NONE SEEN [facility] URINE BACTERIA Few NONE SEEN [facility] l URINE EPI. Moderate NONE SEEN [facility] ID Date Data Source [id number] 03/31/2021 12:13:00 AM EDT [facility] Name Value Range Interpretation Code Description Data Stephanie rce(s) Supporting Document(s) URINE COLOR Yellow [facility] UAPR Cloudy [facility] UGLU Negative NEGATIVE [facility] URINE BILIRUBIN [facility] UKET Negative NEGATIVE [facility] USG 1.031 1.010-1.025 [facility] UBLO Negative NEGATIVE [facility] UpH 6.0 5.0-8.0 [facility] UPRO Trace Negative [facility] UUB 1.0 mg/dL 0.2-1.0 [facility] UNIT Negative Negative [facility] ULEU Trace Negative [facility] ID Date Data Source [id number] 03/31/2021 12:13:00 AM EDT [facility] Name Value Range Interpretation Code Description Data Stephanie rce(s) Supporting Document(s) HCG QUAL URINE Negative [facility] ID Date Data Source [id number] 04/01/2021 06:53:00 PM EDT [facility] Physician DocumentationClaxton-Winding Cypress M edical CenterName: Yareli DuvallAge: 20 yrsSex: FemaleDOB: 2000MRN: [id number] Date: 03/30/2021Time: 23:26Account#: [id number] MD: NONE, - Per PatientED Physician [...] symptoms: Pertinent negatives: abdominal pain, chestpain, fever, ru6ctndxqxf, nausea, shortness of breath, vomiting. [facility] Patient reports suicidal ideation with a [...] Eyes: Negative for acute changes.ENT: Negative for xg9cefka discharge, rhinorrhea, sinus congestion. Neck: Negative for [...] name: ETOH; Complete Time: 00::38 Order name: Gluyfbfey828/1923:38 Order name: Salicylate Level; Complete Time: 00::38 [...] Order name: Medically Cleared for Eval by-Psychosocial, [place] (.PSA):02 Order name: Mental Health Level 4; Complete Time: 05:0 0vg2Qgixheojm Medications:03/2003:48 Drug: OLANZapine 10 mg [olanzapine 10 mg tablet (1 tabs)] Route: PO;jw504:30 Follow up: Response: No adverse reaction; No change in :08 Drug: Geodon 20 mg [ziprasidone 20 mg/mL (final concentration)intramuscular solution jw5(1 mL)] Route: IM; Site: left deltoid;07:13 Follow up: Response: No adverse tirvplrdec793/2100:00 Drug: Geodon 20 mg [ziprasidone 20 mg/mL (final concentration)intramuscular solution tp2(1 mL)] Route: IM; Site: left deltoid;00:30 Follow up: Response: No adverse ffzjnnhueu154:00 Drug: LORazepam 2 mg [lorazepam 2 mg/mL injection solution (1 mL)] Route:IM; Site: fs5vrwix deltoid;00:30 Follow up: Response: No adverse fsznfvahet058:00 Drug: diphenhydrAMINE 50 mg [diphenhydramine 50 mg/mL injection solution(1 mL)] Route: tp2IM; Site: right deltoid;00:30 Follow up: Response: No adverse ohjolnoqgw567:22 Drug: LORazepam 2 mg [lorazepam 2 mg/mL injection solution (1 mL)] Route:IM; Site: jlright vastus lateralis;10:33 Follow up: Response: Anxiety needkmxadul398:23 Drug: diphenhydrAMINE 50 mg [diphenhydramine 50 mg/mL injection solution(1 mL)] Route: jlIM; Site: right vastus lateralis;10:33 Follow up: Response: Anxiety sryadeqjzgr938:24 Drug: Geodon 20 mg [ziprasidone 20 mg/mL (final concentration)intramuscular solution jl(1 mL)] Route: IM; Site: right vastus lateralis;10:33 Follow up: Response: Anxiety mdyxfwbzdqi1Crpwrwooht:Dispatcher [employer] Kylie Fishman MD MD seHowland, Todd, MD MD nk1HckriFortunato humphrey RN RN ay2PeUuoevBertha Garrison RN RN jlBreonna Marie RN RN xf1SolgpelfAmi dang RN ef1 Name Value Range Interpretation Code Description Data Stephanie rce(s) Supporting Document(s) ID Date Data Source [id number] 04/01/2021 06:53:00 PM EDT [facility] Nurse's NotesClaxMohawk [facility] Medical Tootie terName: Yareli Mejiage: 20 yrsSex: FemaleDOB: 2000MRN: [id number] Date: 03/30/2021Time: 23:26Account#: [id number] 1Polga SMITH: NONE, - Per PatientDiagnosis: Free text-PTSD, bipolar with depressionPresentation:03/1923:28 Presenting complaint: Patient brought in by [employer] officer [facility]5evaluation due to patient calling reporting suicidal thoughts with plan to hangself oroverdose. International Travel Fever No. Coronavirus Screening: Have you beendiagnosedwith COVID-19 in the past 30 days? no Are you [facility] Flu-like symptoms reported in the last 14 days: no. Have you had closecontact withconfirmed or suspected COVID-19 case? no Do you live in a setting where a largeofamount of people live, such as longterm, family care, intermediate, etc? no. Haveyoutraveled to a location with widespread or ongoing COVID-19 community spread [facility]? no Have you traveled internationally or h ad contact with someonethat hastraveled and has been ill in the past 3 weeks? no Have you received the COVIDvaccine?Yes. Communicable Disease Screen: Negative for fever>/= 100 degrees Fahrenheit.Communicable disease screen is negative. (-) rash or unusual skin lesion (-)travel/contact with traveler (-) respiratory symptoms. Communication SpeaksEnglish?Yes, is preferred language.23:28 Acuity: Triage 1kd637:28 Method Of Arrival: Hxqehnkk663:30 Acuity Assignment: Triage 3mu8Iqlqun Assessment:23:33 General: Appears in no apparent distress, [...] threats or abuse. Denies injuries from another.Nutritional rb9qbfpjbmam: No deficits noted. Offer of HIV testing: patient was previouslyofferedscreening. Fall Risk None identified.Assessment:23:44 Reassessment: see triage.jw509/2000:54 Reassessment: No changes from previously documented assessment.jw503:24 Reassessment: after PSA informed patient that she would have to wait tillmorning and wp9pkvu the morning psychiatrist decide if she would [...] 10 mg po to helpwith anxiety MD stricklandul0vbtyggpe and order received and medication given .05:02 Reassessment: Patient was using a marker to color as a coping strategyand took marker vl1pyogk and cut left forearm with part of [...] try to push way throughER door several cr5ayfbhlvy made to keep patient turned around, patient [...] and joking with staff in a bright mood.ol1Wbgrugzykuhd:03/2002:34 SAFE Act Report Not Completed. Intervention: Observation Level 3. Mentalhealth consult hfis initiated at 01:50. Referral Information: Evaluation referral is generatedby apolice agency: [facility]. The patient was referred for evaluationbecausesuicidal i deation with a plan. Subjective: The patients chief complaint is Ptpresentsto the ED with [place] [employer] due to Pt contacting them stating that she issuicidalwith a plan. Pt reports increased depression and being suicidal with a plan tohangself, overdose or jump off a bridge. Pt reports that she was at [facility] and transferred to [facility] yesterday and discharged. Ptreports reyshmainor is still feeling suicidal and was unable to contract for safety so doesn'tknow whythey discharged her. Pt reports increased stress due to; not feeling safe ather TLSresidence due to another resident, increased family conflict due to beingtransgenderand an ex being in assisted. Pt states that she has not been following the rulesat TLS.Pt denies HI. Pt denies any recent suicide attempts, last being February 2020 byoverdose. Pt does have an extensive history of suicide attempts, reporting 10+.Ptreports self harm by scraping her arm with a knife three weeks ago. [facility] [place]. Pt reportsthat cecilhas been eating more due [...] overdose 02/2020 Mental HealthAdmissions:multiple, last being at [facility] 03/16/21 Current Outpatient Mental HealthServices:Psychiatrist / Agency: eulalia ([facility] in [place]). Therapist /Agency:Grayson Farley ([facility] in [place]). Living Environment: The patientcurrently lives in a [facility] residence. Patient presents to Emergency Departmentwith [...] structure. pills. Homicidal Ideation: Denies.02:56 Narrative This repairer typewriter spoke with Dr. Mclean, Dr. Mclean recommendskeeping Pt in the ED hfat this time and presenting Pt to the psychiatrist on during the day.Consultation:Psych MD informed of patient's status at 02:56, ED MD notified of patientsstatus at02:56. Disposition: Medically cleared for disposition by Dr Argueta.PsychiatricConsult is performed by phone with Dr Mclean. The patient is not a servicemember ormilitary dependent. [place] Suicide Severity Rating Scale: Suicidal IdeationRating 3;Intensity of Ideations Rating 15; Suicidal Behavior Rating 0.07:39 Narrative PSA role handed off to this repairer typewriter at 0730 AM.hf07:53 Narrative PSA role handed off to this repairer typewriter at 0730 AM.em210:49 Narrative Pt is sleeping. Sitter is present. Safety is maintained .em212:43 Narrative Pt is sleeping. Sitter is present. Safety is maintained.em217:17 Legal Status: Patient's legal status will be Emergency: 9.39. DSM-V DXAxis I fh0tjoxoghoc: Other Borderline Personality Disorder [place] II diagnosis: DeferredAxis IIIdiagnosis: None. [place] IV diagnosis: poor coping skills. InsurancePre-Certification:Not Required. [facility] A dmission Criteria: The patient is experiencing [...] status will be Emergency: 9.39. Commitmentpapers are zf0wejoawzbr. Pt has been provided a copy of their legal status and rights. DSM- VDX AxisI diagnosis: Bipolar D/O, depressed Post Traumatic Stress Disorder. Transitionof careto Pt will be transported to [facility] with [facility] and [facility].Psych:03/1923:37 Subjective: Patient's mood is elevated, Delusions are denied,Hallucinations are denied lu1Fouptg thoughts of suicide. Plan for suicide is [...] Response: No adverse reaction; No change in xvfnekxuitz149:08 Drug: Geodon 20 mg [ziprasidone 20 mg/mL (final concentration)intramuscular solution jw5(1 mL)] Route: IM; Site: left deltoid;07:13 Follow up: Response: No adverse zqaeqdogqx876/2100:00 Drug: Geodon 20 mg [ziprasidone 20 mg/mL (final concentration)intramuscular solution tp2(1 mL)] Route: IM; Site: left deltoid;00:30 Follow up: Response: No adverse ecbxogefzb309:00 Drug: LORazepam 2 mg [lorazepam 2 mg/mL injection solution (1 mL)] Route:IM; Site: iz2yjvzg deltoid;00:30 Follow up: Response: No adverse einonzcccm493:00 Drug: diphenhydrAMINE 50 mg [diphenhydramine 50 mg/mL injection solution(1 mL)] Route: tp2IM; Site: right deltoid;00:30 Follow up: Response: No adverse qqysuuvfuj394:22 Drug: LORazepam 2 mg [lorazepam 2 mg/mL injection solution (1 mL)] Route:IM; Site: jlright vastus lateralis;10:33 Follow up: Response: Anxiety rmrzwdnsugu201:23 Drug: diphenhydrAMINE 50 mg [diphenhydramine 50 mg/mL injection solution(1 mL)] Route: jlIM; Site: right vastus lateralis;10:33 Follow up: Response: Anxiety jniyduuojcw689:24 Drug: Geodon 20 mg [ziprasidone 20 mg/mL (final concentration)intramuscular solution jl(1 mL)] Route: IM; Site: right vastus lateralis;10:33 Follow up: Response: Anxiety ksjerxrsbbt4Goaidxm:18:06 Disposition: Admitted to Lrccwyi263:06 Condition: stable, Provider notified of abnormal vital signs.18:06 Discharge instructions given to patient, Instructed on need for admit,Demonstratedunderstanding of instructions.18:06 Discharge Assessment: Patient verbalized understanding of dispositioninstructions.Patient has no functional deficits.18:33 Decision to Hospitalize by Provider.se18:53 Patient left the ED.jlSignatures:Vincenzo Luis RN RN fbgElliott, Suzanne, MD MD seHowland, Todd, MD MD kr3FqfrpFortunato Mark RN RN om1KbeowqhtAmi Medrano RN RN th7EdCemxbBertha Collier RN RN jlPutney, Taylor, RN JOSE LUIS ua5YedtpDanae Ordoñez RN RN ml4Moyer, Elissa em2Fye, Hayley [...] off of the bed bysticking her head sk3lqwjyzj the guard rail, very aggressive and tried to hurt staff, called staff"dumbsluts" and told us to "go kill ourselves". MD Notified, placed in 4 pointrestraints.tp2 Name Value Range Interpretation Code Description Data [facility](s) Supporting Document(s) ID Date Data Source [id number] 03/28/2021 12:00:00 AM EDT [facility] Name Value Range Interpretation Code Description Data [facility] Supporting Document(s) Sodium 139 mmol/L 136-145 Normal (applies to non-numeric resul ts) [facility] Potassium 3.5-5.1 Below low normal [facility] spital Chloride 105 mmol/L 98-107 Normal (applies to non-numeric resul ts) [facility] Carbon Dioxide CO2 21-32 Normal (applies to non-numer ic results) [facility] Anion Gap 5.0-16.0 Normal (applies to non-numeric resul ts) [facility] BUN 21 mg/dL 7-18 Above high normal [facility] ospital Creatinine,Serum 0.7-1.2 Normal (applies to non-numeric results) [facility] GFR >60 Normal (applies to non-numeric results) [facility] Glucose Level 137 mg/dL 60-99 Above high normal [facility] Reference range is only applicable when patient is fasting Note the following drug interference: Sulfasalazine Sulfapyridine Can see falsely depressed Can see falsely elevated result with up to 17% results with up to 11% decrease in measurement increase in measurement Recommend patients be collected for this test prior to administration of either drug. Calcium 8.5-10.1 Below low normal [facility] spital Bilirubin,Total 0.1-1.9 Normal (applies to non-numeric results) [facility] SGOT(AST) 20 U/L 15-37 Normal (applies to non-numeric resul ts) [facility] Note the following drug interference: Sulfasalazine Sulfapyridine Can see falsely depressed Can see falsely elevated result with up to 10% results with up to 10% decrease in measurement increase in measurement Recommend patients be collected for this test prior to administration of either drug. SGPT(ALT) 48 U/L 12-78 Normal (applies to non-numeric resul ts) [facility] Note the following drug interference: Sulfasalazine Sulfapyridine Can see falsely depressed Can see falsely elevated result with up to 29% results with up to 10% decrease in measurement increase in measurement Recommend patients be collected for this test prior to administration of either drug. Alkaline Phosphatase 114 U/L 38-126 Normal (applies to non-num deena results) [facility] can increase Alkaline Phosp le vels up to 2 times the normal adult value. Normal values for children and adolescents are 2 to 3 times the normal adult value. Total Protein 6.0-8.2 Normal (applies to non-numeric re sults) [facility] Albumin Level 3.4-5.0 Normal (applies to non-numeric re sults) [facility] ID Date Data Source [id number] 03/28/2021 12:00:00 AM EDT [facility] Name Value Range Interpretation Code Description Data Stephanie rce(s) Supporting Document(s) Troponin I 0.000-0.056 Normal (applies to non-numeric resu lts) [facility] ID Date Data Source [id number] 03/28/2021 12:00:00 AM EDT [facility] Name Value Range Interpretation Code Description Data Stephanie rce(s) Supporting Document(s) Magnesium 1.8-2.4 Normal (applies to non-numeric resul ts) [facility] ID Date Data Source [id number] 03/28/2021 12:00:00 AM EDT [facility] Name Value Range Interpretation Code Description Data Stephanie rce(s) Supporting Document(s) Salicylate 2.8-20.0 Below low normal [facility] ID Date Data Source [id number] 03/28/2021 12:00:00 AM EDT [facility] [facility] Name Value Range Interpretation Code Description Data Stephanie rce(s) Supporting Document(s) Acetaminophen 10.0-30.0 Below low normal [facility] ID Date Data Source [id number] 03/27/2021 11:58:00 PM EDT [facility] Name Value Range Interpretation Code Description Data Stephanie rce(s) Supporting Document(s) Ethanol Less than 10.0 Normal (applies to non-numeric r esults) [facility] ID Date Data Source [id number] 03/27/2021 11:36:00 PM EDT [facility] Name Value Range Interpretation Code Description Data Stephanie rce(s) Supporting Document(s) White Blood Count 3.5-10.5 Normal (applies to non-numeri c results) [facility] Red Blood Count 3.90-5.00 Normal (applies to non-numeric results) [facility] Hemoglobin 12.0-15.5 Normal (applies to non-numeric resul ts) [facility] Hematocrit 34.9-44.5 Normal (applies to non-numeric resul ts) [facility] Mean Corpuscular Volume 81.2-95.1 Normal (applies to non- numeric results) [facility] Mean Corpuscular Hgb 25.6-32.2 Normal (applies to non-num deena results) [facility] Mean Corpuscular Hgb Conc 32.0-36.0 Normal (applies to no n-numeric results) [facility] Red Cell Distribution Width 11.9-15.5 Normal (appli es to non-numeric results) [facility] Platelet Count 254 x10 3/uL 150-450 Normal (applies to non-numeric results) [facility] Mean Platelet Volume 9.4-12.4 Normal (applies to non-num deena results) [facility] Neutrophils% (Auto) 31.0-71.0 Normal (applies to non-nume frank results) [facility] Lymphocytes% (Auto) 20.0-55.0 Normal (applies to non-nume frank results) [facility] Monocytes% (Auto) 4.0-12.0 Normal (applies to non-numeri c results) [facility] Eosinophils% (Auto) 1.0-8.0 Normal (applies to non-nume frank results) [facility] Basophils% (Auto) 0.0-2.0 Normal (applies to non-numeri c results) [facility] Immature Granulocytes% (Auto) 0.0-2.0 Normal (alexander lies to non-numeric results) [facility] Neutrophils# (Auto) 1.50-6.20 Normal (applies to non-nume frank results) [facility] Lymphocytes# (Auto) 1.20-4.00 Normal (applies to non-nume frank results) [facility] Monocytes# (Auto) 0.00-0.90 Normal (applies to non-numeri c results) [facility] Eosinophils# (Auto) 0.00-0.50 Normal (applies to non-nume frank results) [facility] Basophils# (Auto) 0.00-0.20 Normal (applies to non-numeri c results) [facility] Immature Granulocytes# (Auto) 0.00-7.00 No rmal (applies to non-numeric results) [facility] ID Date Data Source [id number] 03/28/2021 12:21:00 AM EDT [facility] First test? UNKNOWNEmployed in [facility] re? UNKNOWNSymptomatic per CDC? UNKNOWNIf yes date of onset? 03/27/21Hospitalized? UNKNOWNICU? UNKNOWNResident in congregated care? ex longterm, [facility] UNKNOWN? UNKNOWN Name Value Range Interpretation Code Description Data Stephanie rce(s) Supporting Document(s) SARS-CoV-2 RNA Negative Normal (applies to non-numeric r esults) [facility] Negative results should be treated as pr [...] Certificate of Accreditation. Factsheets for healthcare providers: https://www.fda.gov/media/680795/download Factsheets for patients: https://www.fda.gov/media/409228/download The ID NOW Instrument is a rapid molecular in vitro diagnostic test utilizing an isothermal nucleic acid amplification technology intended for the qualitative detection of nucleic acid from the SARS-CoV-2 viral RNA. THIS IS A STATE REPORTABLE COMMUNICABLE DISEASE. Manual entry verified by Aysha Andrade 03/28/21 0020 ID Date Data Source [id number] 03/28/2021 12:05:00 AM EDT [facility] Name Value Range Interpretation Code Description Data Stephanie rce(s) Supporting Document(s) HCG,Ur Negative Normal (applies to non-numeric results) [facility] ID Date Data Source [id number] 03/27/2021 11:58:00 PM EDT [facility] Name Value Range Interpretation Code Description Data Stephanie rce(s) Supporting Document(s) UDS Benzodiazepines Screen Negative Normal (applies to n on-numeric results) [facility] UDS Cocaine Screen Negative Normal (applies to non-numer ic results) [facility] UDS Ampetamine Screen Negative Normal (applies to non-nu meric results) [facility] UDS Cannabinoids Screen Negative Normal (applies to non- numeric results) [facility] UDS Opiates Screen Negative Normal (applies to non-numer ic results) [facility] UDS Barbiturates Screen Negative Normal (applies to non- numeric results) [facility] Threshold Levels Benzodiazepine 200 ng/mL Cocaine 300 ng/mL Amphetamines 1000 ng/mL Cannabinoids (THC) 50 ng/mL Opiates 300 ng/mL Barbiturates 200 ng/mL All positive findings are presumptive and unconfirmed. Confirmation of positive results are performed only at request of provider. Unconfirmed results must not be used for non-medical purposes (i.e. preemployment and legal purposes) ID Date Data Source [id number] 03/27/2021 11:37:00 PM [facility] Collected By: Nurse Name Value Range Interpretation Code Description Data Stephanie rce(s) Supporting Document(s) Color,Urine Colorl-Dk Y Normal (applies to non-numeric res ults) [facility] Clarity,Urine Clear Normal (applies to non-numeric re sults) [facility] Specific [place],Urine 1.005-1.030 [facility] pH,Urine 5.0-8.0 Normal (applies to non-numeric resul ts) [facility] Protein,Urine Negative Normal (applies to non-numeric re sults) [facility] Glucose,Urine Negative Normal (applies to non-numeric re sults) [facility] Ketones,Urine Negative Normal (applies to non-numeric re sults) [facility] Blood,Urine Negative Normal (applies to non-numeric resu lts) [facility] Bilirubin,Urine Negative Normal (applies to non-numeric results) [facility] Urobilinogen,Urine 0.2-1.0 Normal (applies to non-numer ic results) [facility] Leukocyte Esterase,Urine Negative Normal (applies to non -numeric results) [facility] Nitrite,Urine Negative Normal (applies to non-numeric re sults) [facility] ID Date Data Source [id number] 03/27/2021 10:35:00 PM EDT [facility] Name Value Range Interpretation Code Description Data Stephanie rce(s) Supporting Document(s) Respiratory specimen severe acute respir atory syndrome coronavirus 2 (SARS-CoV-2) RNA Negative (qualifier value) [facility] and reported by . ID Date Data Source [id number] 03/25/2021 09:40:00 PM EDT [facility] Name Value Range Interpretation Code Description Data Stephanie rce(s) Supporting Document(s) Respiratory specimen severe acute respir atory syndrome coronavirus 2 (SARS-CoV-2) RNA Negative (qualifier value) [facility] This lab was ordered by Cholo heaton and reported by . ID Date Data Source [id number] 03/25/2021 10:10:00 PM EDT [facility] Collected By: Nurse Initials: cs Time Collected: 2142 Collected By: Nurse Initials: cs Time Collected: 2142 Collected By: Nurse Initials: cs Time Collected: 2142 Name Value Range Interpretation Code Description Data Stephanie rce(s) Supporting Document(s) Color,Urine Colorl-Dk Y Normal (applies to non-numeric res ults) [facility] Clarity,Urine Clear Normal (applies to non-numeric re sults) [facility] Specific [place],Urine 1.005-1.030 [facility] pH,Urine 5.0-8.0 Normal (applies to non-numeric resul ts) [facility] Protein,Urine Negative [facility] Glucose,Urine Negative Normal (applies to non-numeric re sults) [facility] Ketones,Urine Negative Normal (applies to non-numeric re sults) [facility] Blood,Urine Negative Normal (applies to non-numeric resu lts) [facility] Bilirubin,Urine Negative [facility] Urobilinogen,Urine 0.2-1.0 Normal (applies to non-numer ic results) [facility] Leukocyte Esterase,Urine Negative Normal (applies to non -numeric results) [facility] Nitrite,Urine Negative Normal (applies to non-numeric re sults) [facility] ID Date Data Source [id number] [facility] Initials: cs Time Collected: 2142 Collected By: Nurse Initials: cs Time Collected: 2142 Collected By: Nurse Initials: cs Time Collected: 2142 Name Value Range Interpretation Code Description Data Stephanie rce(s) Supporting Document(s) RBC,Urine None Seen [facility] WBC,Urine None Seen [facility] Casts,Urine None Seen Normal (applies to non-numeric resu lts) [facility] Epithelial Cells,Urine None - Few Normal (applies to non-n umeric results) [facility] Squamous Cells,Urine None Seen [facility] Bacteria,Urine None Seen [facility] ital ID Date Data Source [id number] [facility] By: Nurse Initials: cs Time Collected: 2142 Collected By: Nurse Initials: cs Time Collected: 2142 Collected By: Nurse Initials: cs Time Collected: 2142 Name Value Range Interpretation Code Description Data Stephanie rce(s) Supporting Document(s) HCG,Ur Negative Normal (applies to non-numeric results) [facility] This is a Corrected Result --- 03/25/212206 --- Ur HCG previously reported as: Negative ID Date Data Source [id number] 03/25/2021 10:04:00 PM EDT [facility] Name Value Range Interpretation Code Description Data Stephanie rce(s) Supporting Document(s) SARS-CoV-2 RNA Negative Normal (applies to non-numeric r esults) [facility] Negative results should be treated as pr [...] Certificate of Accreditation. Factsheets for healthcare providers: https://www.fda.gov/media/845089/download Factsheets for patients: https://www.fda.gov/media/736480/download The ID NOW Instrument is a rapid molecular in vitro diagnostic test utilizing an isothermal nucleic acid amplification technology intended for the qualitative detection of nucleic acid from the SARS-CoV-2 viral RNA. THIS IS A STATE REPORTABLE COMMUNICABLE DISEASE. Manual entry verified by Rachel Leslie 03/25/212202 ID Date Data Source [id number] 03/25/2021 10:04:00 PM EDT [facility] Name Value Range Interpretation Code Description Data Stephanie rce(s) Supporting Document(s) UDS Benzodiazepines Screen Negative Normal (applies to n on-numeric results) [facility] UDS Cocaine Screen Negative Normal (applies to non-numer ic results) [facility] UDS Ampetamine Screen Negative Normal (applies to non-nu meric results) [facility] UDS Cannabinoids Screen Negative Normal (applies to non- numeric results) [facility] UDS Opiates Screen Negative Normal (applies to non-numer ic results) [facility] UDS Barbiturates Screen Negative Normal (applies to non- numeric results) [facility] Threshold Levels Benzodiazepine 200 ng/mL Cocaine 300 ng/mL Amphetamines 1000 ng/mL Cannabinoids (THC) 50 ng/mL Opiates 300 ng/mL Barbiturates 200 ng/mL All positive findings are presumptive and unconfirmed. Confirmation of positive results are performed only at request of provider. Unconfirmed results must not be used for non-medical purposes (i.e. preemployment and legal purposes) ID Date Data Source [id number] 03/25/2021 09:47:00 PM EDT [facility] Name Value Range Interpretation Code Description Data Stephanie rce(s) Supporting Document(s) Ethanol Less than 10.0 Normal (applies to non-numeric r esults) [facility] ID Date Data Source [id number] 03/25/2021 09:17:00 PM EDT [facility] Name Value Range Interpretation Code Description Data Stephanie rce(s) Supporting Document(s) White Blood Count 3.5-10.5 Normal (applies to non-numeri c results) [facility] Red Blood Count 3.90-5.00 Normal (applies to non-numeric results) [facility] Hemoglobin 12.0-15.5 Normal (applies to non-numeric resul ts) [facility] Hematocrit 34.9-44.5 Normal (applies to non-numeric resul ts) [facility] Mean Corpuscular Volume 81.2-95.1 Normal (applies to non- numeric results) [facility] Mean Corpuscular Hgb 25.6-32.2 Normal (applies to non-num deena results) [facility] Mean Corpuscular Hgb Conc 32.0-36.0 Normal (applies to no n-numeric results) [facility] Red Cell Distribution Width 11.9-15.5 Normal (appli es to non-numeric results) [facility] Platelet Count 264 x10 3/uL 150-450 Normal (applies to non-numeric results) [facility] Mean Platelet Volume 9.4-12.4 Normal (applies to non-num deena results) [facility] Neutrophils% (Auto) 31.0-71.0 Normal (applies to non-nume frank results) [facility] Lymphocytes% (Auto) 20.0-55.0 Normal (applies to non-nume frank results) [facility] Monocytes% (Auto) 4.0-12.0 Normal (applies to non-numeri c results) [facility] Eosinophils% (Auto) 1.0-8.0 Normal (applies to non-nume frank results) [facility] Basophils% (Auto) 0.0-2.0 Normal (applies to non-numeri c results) [facility] Immature Granulocytes% (Auto) 0.0-2.0 Normal (alexander lies to non-numeric results) [facility] Neutrophils# (Auto) 1.50-6.20 Normal (applies to non-nume frank results) [facility] Lymphocytes# (Auto) 1.20-4.00 Normal (applies to non-nume frank results) [facility] Monocytes# (Auto) 0.00-0.90 Normal (applies to non-numeri c results) [facility] Eosinophils# (Auto) 0.00-0.50 Normal (applies to non-nume frank results) [facility] Basophils# (Auto) 0.00-0.20 Normal (applies to non-numeri c results) [facility] Immature Granulocytes# (Auto) 0.00-7.00 No rmal (applies to non-numeric results) [facility] ID Date Data Source [id number] 03/25/2021 09:55:00 PM EDT [facility] Name Value Range Interpretation Code Description Data Stephanie rce(s) Supporting Document(s) Sodium 141 mmol/L 136-145 Normal (applies to non-numeric resul ts) [facility] Potassium 3.5-5.1 Normal (applies to non-numeric resul ts) [facility] Chloride 106 mmol/L 98-107 Normal (applies to non-numeric resul ts) [facility] Carbon Dioxide CO2 21-32 Normal (applies to non-numer ic results) [facility] Anion Gap 5.0-16.0 Normal (applies to non-numeric resul ts) [facility] BUN 12 mg/dL 7-18 Normal (applies to non-numeric results) [facility] Creatinine,Serum 0.7-1.2 Normal (applies to non-numeric results) [facility] GFR >60 Normal (applies to non-numeric results) [facility] Glucose Level 96 mg/dL 60-99 Normal (applies to non-numeric re sults) [facility] Reference range is only applicable when patient is fasting Note the following drug interference: Sulfasalazine Sulfapyridine Can see falsely depressed Can see falsely elevated result with up to 17% results with up to 11% decrease in measurement increase in measurement Recommend patients be collected for this test prior to administration of either drug. Calcium 8.5-10.1 Normal (applies to non-numeric resul ts) [facility] Bilirubin,Total 0.1-1.9 Normal (applies to non-numeric results) [facility] SGOT(AST) 27 U/L 15-37 Normal (applies to non-numeric resul ts) [facility] Note the following drug interference: Sulfasalazine Sulfapyridine Can see falsely depressed Can see falsely elevated result with up to 10% results with up to 10% decrease in measurement increase in measurement Recommend patients be collected for this test prior to administration of either drug. SGPT(ALT) 52 U/L 12-78 Normal (applies to non-numeric resul ts) [facility] Note the following drug interference: Sulfasalazine Sulfapyridine Can see falsely depressed Can see falsely elevated result with up to 29% results with up to 10% decrease in measurement increase in measurement Recommend patients be collected for this test prior to administration of either drug. Alkaline Phosphatase 126 U/L 38-126 Normal (applies to non-num deena results) [facility] can increase Alkaline Phosp le vels up to 2 times the normal adult value. Normal values for children and adolescents are 2 to 3 times the normal adult value. Total Protein 6.0-8.2 Normal (applies to non-numeric re sults) [facility] Albumin Level 3.4-5.0 Normal (applies to non-numeric re sults) [facility] ID Date Data Source [id number] 03/25/2021 09:55:00 PM EDT [facility] Name Value Range Interpretation Code Description Data Stephanie rce(s) Supporting Document(s) Troponin I 0.000-0.056 Normal (applies to non-numeric resu lts) [facility] ID Date Data Source [id number] 03/25/2021 09:55:00 PM EDT [facility] Name Value Range Interpretation Code Description Data Stephanie rce(s) Supporting Document(s) Magnesium 1.8-2.4 Normal (applies to non-numeric resul ts) [facility] ID Date Data Source [id number] 03/25/2021 09:55:00 PM EDT [facility] Name Value Range Interpretation Code Description Data Stephanie rce(s) Supporting Document(s) Salicylate 2.8-20.0 Below low normal [facility] ID Date Data Source [id number] 03/25/2021 09:55:00 PM EDT [facility] Name Value Range Interpretation Code Description Data Stephanie rce(s) Supporting Document(s) Acetaminophen 10.0-30.0 Below low normal [facility] ID Date Data Source [id number] 03/25/2021 07:15:08 AM EDT [facility] Name Value Range Interpretation Code Description Data Stephanie rce(s) Supporting Document(s) Discharge Summary [facility] [id number] lbm [file] [id number]/[id number] chief//[id number] [file] [id number]= ID Date Data Source [id number] 03/24/2021 09:16:00 AM EDT [facility]: [id number] Reported By: - SHIVAM OSCAR MD Signed By: SHIVAM OSCAR MD Name Value Range Interpretation Code Description Data Stephanie rce(s) Supporting Document(s) ID Date Data Source [id number] 03/21/2021 04:51:30 PM EDT [facility] Name Value Range Interpretation Code Description Data Stephanie rce(s) Supporting Document(s) History and Physical [facility] BRJPJq3tIzEKPdWo62/HUBrtAMSdf7ScAFcvIVx8KJjhOMNuI6EfZDP2qP2tRIL0JInOKfEwSzNxURYc lbm [file] AgICAgICAgICAgICAgICAgICAgICAgICAgICAgICAgICAgICAgICAgICAgICAgICAgICAgICAgICAgIC TmUGZrMT3RDVPrOQRmBDFtZYDoJWPgFEWkHCDuQGTg ICAgICAgICAgICAgICAgICAgICAgICAgICAgICAgICAgICAgICAgICAgICAgICAgICAgICAgICAgICAg ORNbNQHiMTHrONUyOLOuZH8VOEOlUGSsYHWqJFXtMBDgPXZiATVpMHAqAHUwDHEzTFYqYXXaYBViDOYq ICAgICAgICAgICAgICAgICAgICAgICAgICAgICAgIC VdLVCvIEEkZXJnCUUgQYGzTKDkOXDaGOHsKC2LLCSfQVNkVHUhQFQuPJHpNNAeLAPxKSGbOXDoOQBaQI AgICAgICAgICAgICAgICAgICAgICAgICAgICAgICAgICAgICAgICAgICAgICAgICAgICAgICAgICAgIC MsFSZtUIGlAS1QAAIrBPOlSDHuQZWsWLBtSZLvZMIt ICAgICAgICAgICAgICAgICAgICAgICAgICAgICAgICAgICAgICAgICAgICAgICAgICAgICAgICAgICAg VQTbLPIvZCDrHHZpSUKvJDZnQC6WSUQnKGFpDZUpKIFnHYVdAMIjFLOgGUXsIJScZODaZLAwGZWkKHYv ICAgICAgICAgICAgICAgICAgICAgICAgICAgICAgIC NxXZJmSADbESDgSKXaOABiPVVeTYGsEMTqZWOfWW7EUOAsKUIkKJDqBPAnZTUuAGDvWYNxMDMfFGHeZR AgICAgICAgICAgICAgICAgICAgICAgICAgICAgICAgICAgICAgICAgICAgICAgICAgICAgICAgICAgIC CiYTVlJBWlJXAhDM5MQHXmJMCdIUQrXBJmMXOdRYYw ICAgICAgICAgICAgICAgICAgICAgICAgICAgICAgICAgICAgICAgICAgICAgICAgICAgICAgICAgICAg DTSfIRLlSYOcQASqHVIyFTBzUKBfOA5CZZYaTCKoSJSaLTRqEUAvDFKsRMJhEEOkZRBoQBYmMZZxEMXe ICAgICAgICAgICAgICAgICAgICAgICAgICAgICAgIC MfMQIiTSLqDIXvCFHuXMPfDFBrFTScPZEtOCQpGPBnKL6KMVDnBLRvOLUyFSBoTPTsLCYgKYZaJYLeUP AgICAgICAgICAgICAgICAgICAgICAgICAgICAgICAgICAgICAgICAgICAgICAgICAgICAgICAgICAgIC LfEAIsNZNmYTJjPYThFN6PYQ72hCExt8V5VPSnGZ3t dyc/Fx8ZMBzbclNkyBVoJV5FDnVzOQ3psa9WGmSuSG8ckm2MUDvJUpFfW5Y6sZSiYGOhDSQJEmPqO90r LQflPo75SVekUNLbUrJfRIs5No6IWoEdX7mtZBOzZqD6TSIdWmQ6TFYqJkD0VIAbVvXzLGYbTMVaSRNk JJHUCK8DBnQhG2FgtB83ZAXBXu8+DQplbmRvYmoNCj Z0XYDbx5BfBFl0WN7TQJEnGxtaq5BoXnhqUCAULMsqYN1ADDF4MFH4LSTtCb3LRJIbP299ytCaDX7ZHq 5WPuEiPN6cmo6OUsytZMVjOuxBSta4TMefIL0OuVMaFUgGAaEeQgjjNKDjzSGXFQQdVYQqwOcdGVCvMT DbMY6lOS1jMNEpFUUqSdT1KABOEM7NKEGxDOHagBMc RCMrZITNSR5XOBilIZX9WVHoglYqkYAuFLraTU8HYBOoafQtSyKxFWAUECt+Aj6FNJ3fa0ZeGYprGNUv LC9juc0IDHaHApSmO4V7lPPaR2Z8UWiqFg6OUUVpZQUmMrOmHMLGVFsbUM2IUS4yvmK1ZU9DcSPqMNQc VJSkhEMmODi4H50esWHuDPidPM3AVTQ+Dillon+Pg0KIC XnQYEtENEfNxGvMWADUvObC8DlX6KSq6MnI3PlOP12rYmkenJvIMsfWF8AND3nCWVcJTZIOO6XlCOduE 1jciCeIkJzTXEFRrIzF34bvLAwTAZdNDE8MUDlYr3MGETvO4FuevKwpBuypmInDMWhGNBBVN1UKLrjyi NpcUMowYxmUC40pUafIV1URf9IGxJxGB1tou0VmPSt Vh6ICOHcBI3DAARiIAKlKLRhHTN6QCUcGqYrKOqjBHLjVDMuSME7TTSdPKLfSX8UYpSyAQNmXuSuIElg HKSgZUTole1EQQKfIJEuWvF3QCJuRMLnDEPrDXakBIMpCOJfPTX4UNVnWKJaDE4OAvUwKNGiQEKhXWbd LDGxZNXbmy8PZHSsQZOfQdJmBSHyOBPwRVGgIKkhLZ LeRUW8DXr8SLIfECPtAI0YUxDvXZMyJVX8AACeGJYnJSTrxn6PBSMdUKKpYOUaTACtWXYxWNGyWJqtFZ IaWYI0OmT7HPFeDUJoSP3EBrVfNUMjPXE1ONBrBHViSTNjig1SROMyBUZnYzjuKMLxCXWpFFEsJXtlUL CeZNM1UTI8WDWcAUCcUB3PMlZrROFzYKGdFZQuUIYb WSDgzp6DYZNhSMGnThWjAQPcCLSlVEJyPVujZUChHTM1FIz7KZLcEJNqMB1VYiIrIALvIBV1PCRkNRJp VCIhml0FXNXzVGQnQdFjBOYiTRZdXVMhVVnsNZGnLLV4URAeBTAvJQImIF4XNhZaJMAcRZtyFnkqCMBx OESaco7YOCAwDDOeUJz7RCSnFWPhWYWiTBpdVMHlKT G4PXf4CJUjVIUtPV5BRgUeUIKcCLcgKjbyYEOvVFXqji3QDFUyIOVaFDi7JYUtMHTmYMYiNAapLXGxAB OrVSqtGLIkPKRyBI1CLmTwRWNxEiDaMBEwOZPyJNUpiv7OVMWuKIAwCOUbHORdHRWtVHNgOChfDLDnZQ QgUxI6FUIzIQUtOO5QBpThSFPaRdP2NRGyBMAlEWGh gu5VVRBoISJuBsn5PWZuZQRlOFOsFXxhXQOcDQHhCHk2HVUkQKFmHZ1CAzVkAEWbVxM3UBexGBFwSVYh iu3OYDDpUIWjFISsSoDrYFUvZZDbTQmyMANuQZP4Khx8NMMsGSIxGG4TRcYrJTDyUgA9LMIiBKEfPRIp qz4ABDHyJPKrBuBzESMiSNMuOADkLIxsSMVjKGW8Hr o5NWQtPUGiZU4YMbVtMECdKiN3VMQsMMBzHCSgym4DdVOpeBsktr0HNVmKZg0KbAwnZHI3RAxpEr9zrY RtOXUaEDOGVx3MayJfKYWdAKTAEVmcDVMmTNfqFxqwUBXyCfG8HEUoJTNjXLM1FdV1OgwuRAF2SALvWe O0QGPbMxJlCNG8AfF9NnS6AjMxFzCnWfK9ZJPsSTVj NWE+FF7cQOy+Qt9Hx5PwtdA0ieSmXRceGpZ9GM1QJVDMA6JUXg== ID Date Data Source [id number] 03/21/2021 04:41:32 PM EDT [facility] Name Value Range Interpretation Code Description Data Stephanie e(s) Supporting Document(s) History and Physical [facility] WBOWRu0tGvAHIcZg16/KWViiBNVsi9KxWVijZMw2YPkoZZXjJ1LaHSM2kP1sPVB5ROqLScAoWfYlMSXv lbm [file] thu5ZT/P93HcgiajRKK85IWvB/ODV+pooling operator+qHB6isDXL [file] E+DQogICAgICAgICAgICAgICAgICAgICAgICAgICAgICAgICAgICAgICAgICAgICAgICAgICAgICAgIC AgICAgICAgICAgICAgICAgICAgICAgICAgICAgICAg ICAgICAgICAgICAgDQogICAgICAgICAgICAgICAgICAgICAgICAgICAgICAgICAgICAgICAgICAgICAg ICAgICAgICAgICAgICAgICAgICAgICAgICAgICAgICAgICAgICAgICAgICAgICAgICAgICAgDQogICAg ICAgICAgICAgICAgICAgICAgICAgICAgICAgICAgIC AgICAgICAgICAgICAgICAgICAgICAgICAgICAgICAgICAgICAgICAgICAgICAgICAgICAgICAgICAgIC AgICAgDQogICAgICAgICAgICAgICAgICAgICAgICAgICAgICAgICAgICAgICAgICAgICAgICAgICAgIC AgICAgICAgICAgICAgICAgICAgICAgICAgICAgICAg ICAgICAgICAgICAgICAgDQogICAgICAgICAgICAgICAgICAgICAgICAgICAgICAgICAgICAgICAgICAg ICAgICAgICAgICAgICAgICAgICAgICAgICAgICAgICAgICAgICAgICAgICAgICAgICAgICAgICAgDQog ICAgICAgICAgICAgICAgICAgICAgICAgICAgICAgIC AgICAgICAgICAgICAgICAgICAgICAgICAgICAgICAgICAgICAgICAgICAgICAgICAgICAgICAgICAgIC AgICAgICAgDQogICAgICAgICAgICAgICAgICAgICAgICAgICAgICAgICAgICAgICAgICAgICAgICAgIC AgICAgICAgICAgICAgICAgICAgICAgICAgICAgICAg ICAgICAgICAgICAgICAgICAgDQogICAgICAgICAgICAgICAgICAgICAgICAgICAgICAgICAgICAgICAg ICAgICAgICAgICAgICAgICAgICAgICAgICAgICAgICAgICAgICAgICAgICAgICAgICAgICAgICAgICAg DQogICAgICAgICAgICAgICAgICAgICAgICAgICAgIC AgICAgICAgICAgICAgICAgICAgICAgICAgICAgICAgICAgICAgICAgICAgICAgICAgICAgICAgICAgIC AgICAgICAgICAgDQogICAgICAgICAgICAgICAgICAgICAgICAgICAgICAgICAgICAgICAgICAgICAgIC AgICAgICAgICAgICAgICAgICAgICAgICAgICAgICAg ECJcHANgJKEwCWWmSHYyOHFpBJZnPGg2Q7dbKGEcRVBpNM7aDVn2Np8+LCySLaTiJKG3diQmiT8ZUH8u o7TcUXpfFDDzi2MdIIq3QZ5RKTHgARiiIE3HKLgjxs0XWEBjHTNqtOYRy2siSkDePGG1YGUcPclyVF5V ONHvQ6ahniVgZBUbTXNEDVqpFTJOYZchZUTZUYErZY QdYrDbRfBpZCMyCLNlZMLHQAW4IISkDcUsNZHfMRCqWwXyBRSYDJR5YAZdHuGfZZfiIV6Dq4EpwOSkJF 2FOb9SXkCqCY7ezx0MABAqQKEoXnzCCid0DGsoDX5EyIMwaIW2QFZxMZHQQnMzE2nkj9ToHHYrUHJHZB qwKV7Fk5CzlLEuMGw+Ku1DRH5gb2IcTRt9VFXvTY4d cj8OXEdZJgCvC5HsuVgyXWoiEMIniFHTc9eesoYBLJ7erNSlOQK2LLkaLISwSoWbXLBpTmhbWYOHRCoU JrXjP7Use1WfXlO6RLXgZzKmTOwtWDRdJyJ7JQ82iJkqQF8DARIvMJElRF68TYXhHJZuXu2UDv2DZkBg ZN0uak8ZLkWtAIMgUyrBAmo1XZieMO5ZhNMlUQ8Dza 9paIGqT3OzaIcaALOvMIjkwlQrFl6qVUUwBEhjEWInQI4eG8yrS8wcE0DbRWQVYnCsT3BqI8IaBeCfMM UsRwFkXRRvPYN1RSLRKnLoT5JiQAwvYcOgLSDZEU0PXovkSWXbI1SIVErFBE4BJ0hLN0ANIP7IYWuCQg fGKcXAS4IXV9YOR75TNvKyKA4+SO6EWa5RQqGxGX9f jd1RSEGlRVVfCdhTDfy0NQnxND5KyEKoY7VyfAMaw3kKSsAzI0IWNIN1NRXiYx1PKTFfLzGxQMNxVWbt BS7iFJGpWHICdPvhnnX3MP2HSB8oiwZzHD6EErOrIa6sBi0XAjNpS4JmJ1CoTRHoAXCWLOupOH7MPPyi SO1bKU9Ch4JEgFMkrQ3kul1BWFHbMQKwWeqvva3KPa ryV0O1kGmoMWTzVHZjLSOEMAldMP0NUHWxKVT1MVD8XWPiCUCSNkNsY29tFS8MI6Kux70eTxC9IUNlBd EjGXaxQB57fSallrBhqZZkiUjqDB9WFq2+DQplbmRvYmoNCnhyZWYNCjAgNTMNCjAwMDAwMDAwMDAgNj Z3FrAjKt6BKWEgMAUeJHYcGgHzYEGsEYIzIZudBYXn LAH7OjG0FKOnJXBcOG3ECeSkMWZwUOimIDHtNJSoAVKiym3KIJBlZHEkRVA1XdIyDURkDDQsNEnyBBOt ZEL7VoK0XANmIGJyOG5ACyWnPUHrDAH7MFLyJPIsKVMygz9USBQaZTJkXxz3YPFqZSUtRMImOTizWWFr LMH7XSp0VMSaGTSiVW9FZwXqYXKdOAF0QtxfWCVfLB Hquu8DEWRcEFElPRk2QJKcAAHsJTCwMHjoIGXxBKZ2NjK3PUCsBWBoQV8YKcZoPSQiHBL1XmTyJITsHL Wuqx8SISCoEORdTeO9JpYdBAYwSUZaXAnsWZPvBFN1BoX7BCApDDRfPW7XCyDrQZIwYsZ8HrRkURSbWG Okkq6RHYSpJUUpSOH3JEIdHKSuZZCeLWpsIISpHCG9 PfI9SUQfYVQlBS1LUiPwQNZfMlW1BbEkOBKrKKWcth2KZVCaFZBuSTKfMeReLCHbTKChJNlhTLJgVSV9 ChX5XFIfGMGqRP3JOdKmAPYfTyX8SyFdJHUzRJElsf2WVEBsWLB4PTZxLFKiMCWuHTTcWBmjYCSiQKTc JIz6KEYtYZMgWQ4NGhIpCURbQtQmLHTyTONbMLDvvj 9IUOOnKLBrQOApDYQbCPNbWWJiRDmoIOHlOER5EHH4FVCySBFlPQ9PXpOcVDYtSwUuOpHpEKZxILPwbi 8XMPKeGVEqJMG6BKExVAXmBUKuUCqfSHLyHOR3DGA5FUNhJXAmRH9GXzXqAINnCvK5LKMgMNLgUHHjss 6PSUHvGAJfHbs8KGEdTYMwZBUcINdpVNTlVKU5GET2 JOPcPDCoZC1NPbOgBUHzCmoiNFTjTEJhCDWigm8HMSFzFCIfVDVxEHDvDSTtQYChZJiqOSHhPGC9CSt8 FCZpEEXhDP3XCsLcBNLyStq7QURgYCZxAIBqpb4INKJrAKLxPUT0YdHhNLPrLENuYEzxQWRhQPZxHOCd GUWmVDPaFV5QLePzOPFaBUL9IsOwNQUeWEOuhs7QSM XdMLO4EUf5HACqTSPlUKRkNNdkUTIrPSB3ABBhEVTeUOCbHT1QEaBjEZPiHSPqNbIyMUBsAEWnma7QGX SvKXR0EiG0EFMkCXUwYPOyGQjjUVJzDRE8IBd2XIAfRWEjGV5ZOfXvUFLwHEK7IEoeVOHwMRRppz8MBR XzWPR5Mxf8UIOwDRRcNTVvPXswFUZxHQB6TXd4LSKq MFPsQI8DKqFbROWnKVbqZKIfYBZhLWLhiz2QMYOhYYG6QkikBLIpGGGaOQSaNZldANWzBLN0NeUyTGPb MAJkXA7NLcPnMYPjTXkfUUQaQLRbHYEeyz0NLZScCPD2EPG3QMRvUNVeRLPpUNi5owHmhXNmQGd9UB2X D7VkpbJkRDZEXm9Ot393RDUyFGOkQa9NT2yqPx4qNQ XbKKVYFe9KRAd3E4SkXGSpWiHeBVcbHBWoWPcwYyn8WrZ1QnmlTNrtYOJ+UBi6LKT0ZmA7XYFqAZEuDC HvSBL5BNcgVKNxK2I1H1M5HR8aFIBFZp3+HAustLDkmPjiDCKTCoZ9NJN7HOptZGGJSj5C ID Date Data Source [id number] 03/20/2021 08:10:00 PM EDT [facility] Name Value Range Interpretation Code Description Data Stephanie rce(s) Supporting Document(s) SARS coronavirus 2 RNA [Presence] in Res piratory specimen by CORDELL with probe detection NEGATIVE [facility] This lab was ordered by [facility] a nd reported by [facility]. ID Date Data Source [id number] 03/19/2021 10:46:48 AM EDT [facility] Name Value Range Interpretation Code Description Data Stephanie rce(s) Supporting Document(s) Consults [facility] KEQVCp0fNdGWUmUb08/QEPpfUSKcl8XrHQniESg9WQtoNHLsD1XaUYR1xK6yEOR5YXkVThKbEpPfWOJ6 lbm [file] ICAgICAgICAgICAgICAgICAgICAgICAgICAgICAgIC AgICAgICAgICAgICAgICAgICAgICAgICAgICAgICAgICAgICAgICAgICAgICAgICAgICAgDQogICAgIC AgICAgICAgICAgICAgICAgICAgICAgICAgICAgICAgICAgICAgICAgICAgICAgICAgICAgICAgICAgIC AgICAgICAgICAgICAgICAgICAgICAgICAgICAgICAg ICAgDQogICAgICAgICAgICAgICAgICAgICAgICAgICAgICAgICAgICAgICAgICAgICAgICAgICAgICAg ICAgICAgICAgICAgICAgICAgICAgICAgICAgICAgICAgICAgICAgICAgICAgDQogICAgICAgICAgICAg ICAgICAgICAgICAgICAgICAgICAgICAgICAgICAgIC AgICAgICAgICAgICAgICAgICAgICAgICAgICAgICAgICAgICAgICAgICAgICAgICAgICAgICAgDQogIC AgICAgICAgICAgICAgICAgICAgICAgICAgICAgICAgICAgICAgICAgICAgICAgICAgICAgICAgICAgIC AgICAgICAgICAgICAgICAgICAgICAgICAgICAgICAg ICAgICAgDQogICAgICAgICAgICAgICAgICAgICAgICAgICAgICAgICAgICAgICAgICAgICAgICAgICAg ICAgICAgICAgICAgICAgICAgICAgICAgICAgICAgICAgICAgICAgICAgICAgICAgDQogICAgICAgICAg ICAgICAgICAgICAgICAgICAgICAgICAgICAgICAgIC AgICAgICAgICAgICAgICAgICAgICAgICAgICAgICAgICAgICAgICAgICAgICAgICAgICAgICAgICAgDQ ogICAgICAgICAgICAgICAgICAgICAgICAgICAgICAgICAgICAgICAgICAgICAgICAgICAgICAgICAgIC AgICAgICAgICAgICAgICAgICAgICAgICAgICAgICAg ICAgICAgICAgDQogICAgICAgICAgICAgICAgICAgICAgICAgICAgICAgICAgICAgICAgICAgICAgICAg ICAgICAgICAgICAgICAgICAgICAgICAgICAgICAgICAgICAgICAgICAgICAgICAgICAgDQogICAgICAg ICAgICAgICAgICAgICAgICAgICAgICAgICAgICAgIC AgICAgICAgICAgICAgICAgICAgICAgICAgICAgICAgICAgICAgICAgICAgICAgICAgICAgICAgICAgIC CgAIk9T6afTLCcRBIrOD3sWNd0On2+YTqGBxBtUWZ9vkEeyJ2JLQ6gd9ZqSWaoFOCfp4KfWZj6SW8GIE HkNJsuOI2AOOdhhm4BJKYzKZIqwADQj1jjOfYjZPV1 YYElEcisKF3JSJEtL7ibyiQjBVEqFJLSJA1VRyDjZ7YbsB35GZRWIb6+BEwpfnFeZxvRCiY5ICDvw5Hu IGj9UC9MEFFvQmlko0LaUGtlXKWVLMpnDR3KWZH3YKZ9GSJlQq8VCFWeT888ukPaGZ7SPi7UTtFvZL8k zm7HDBbnPMZdWjhIGfe6LGjeQK1XkHWlEQzDv39uqZ o9fdFdkLRDAUksCJAQWEVypH9Yt7VuJJZBSRJYVOL6OEtySr1wQFDzMBFwXmUtWRYMLZ0WKXGkPFPlyJ LjUXPvAKESWF3ZGEvxHKX1RodfnfEpsAKsUNwoQG8WHDBmhhUxYPywRPTDCCl+Sm8REM2iu1SrFCeoJC WyXC1qaz3OYNrMJcYvJ9I6pINdH3W6OChlJe6HHWOb MDYuXWLkHYZVUGkrIN4RFM5udhS7HP3ZzODnNNBpKJIcfQLhJOk0B35muFUjHEvkZA6ZLQF+Dillon+Pg0K MAEoEDCfEIAkYjJiZLZXVvWyM2DaK7GDz0ZsX7HkVR85lIgsrkSvMBhyLB3PVG0nSMPyORJNEN7AjRVo bA5pdvHePkWsDIDJNpKvQ00yyEYgNNKyNLS0LGZqBr 4UHDVtS9YppeQdbFogzqAaUSXoEHOIPH9UGWnynsHcrHMqyStjCL72dCqzMO6QFu6NTcSzZP3czu8FqH BzSe0JYPZbKE1XECBmCPPbABNbCBH4OGHvBzToYMxmICYhBUZiHME5AKIgJYPhTO3YPaFpUSChDFGtVZ PvMOVdIGHrww1SVZOlGMQqSdvzHxRvRPDrWNCeWMsp EBMlDBRwCGI4UITbVSEnBZ8APxZzFQBbJWU5RQMjJFWhVWMgie8EKNBeIUWkSzS0HCQwGXCuNAKlAEyb WQVxACLrNSUzQYYzFSGrLF9MOiRrWIVbTXApWQJaBSZzRPUjhx3MSWXzOSIeKoZ8WZVyBMUoROGwPQwb CXFyQXK8ZwG5UKSjBASoFX6QIwBvEIHgIUK8TAIgGC MyPWGwzf7VMAGxNUHoKRipKmAaYUUzRJYbEPckKNFqYAN1Lep2EAQpAWDcGL9GOoUuJAJuQFR8QQDsVH HkJJCfjk4SEGDwZUYvKpZ9JDYiDSWrDBQhVVfjQBCzDBZ7KIoxQPXlSZLgSV4CQuAvIKXzZBz1KrKfGF RiMARypb7VJYHcAFFkNSOwIYDiMNRfKEPbADrbVGYw DFL3IOI1CLXuCIXaYS7XPbGyPQcgTMKGQqp4SQhaW3d6ZUGuLF1QV0Acv3CtRFnlQMMLAFavLZ7jizMq WPLwAq0LQ7zKExq8NnUbCfH6XFu3PRAcOKciSkc8XzK0EIFtNKT0EYYeZP7dKKXbIgUoMgt2GYw1FRD2 S4IiJWi0GFVcMqAvOgJ8MNNyXmHdMN4HKl1MKdV1VNY2nJUuDj8PUEP8FL3RLFLYQ3ISRz== ID Date Data Source [id number] 03/16/2021 05:01:00 PM EDT [facility] Number: [id number] OF EXAMINATIO N: 03/16/2021 15:29 EDTHISTORY: InjuryTECHNIQUE: Fall views of the left tib-fib were obtained.FINDINGS:There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 Name Value Range Interpretation Code Description Data Stephanie rce(s) Supporting Document(s) Consults [facility] WTKKMs8fLrJBBlGw34/UJIuoQEObp8YpMTzwUZb3FGhoUHAkX1QlERT6wI4vDPQ1XYpUKgChJoAyVNY2 lbm [file] ICAgICAgICAgICAgICAgICAgICAgICAgICAgICAgIC AgICAgICAgICAgICAgICAgICAgICAgDQogICAgICAgICAgICAgICAgICAgICAgICAgICAgICAgICAgIC AgICAgICAgICAgICAgICAgICAgICAgICAgICAgICAgICAgICAgICAgICAgICAgICAgICAgICAgICAgIC AgICAgDQogICAgICAgICAgICAgICAgICAgICAgICAg ICAgICAgICAgICAgICAgICAgICAgICAgICAgICAgICAgICAgICAgICAgICAgICAgICAgICAgICAgICAg ICAgICAgICAgICAgICAgDQogICAgICAgICAgICAgICAgICAgICAgICAgICAgICAgICAgICAgICAgICAg ICAgICAgICAgICAgICAgICAgICAgICAgICAgICAgIC AgICAgICAgICAgICAgICAgICAgICAgICAgDQogICAgICAgICAgICAgICAgICAgICAgICAgICAgICAgIC AgICAgICAgICAgICAgICAgICAgICAgICAgICAgICAgICAgICAgICAgICAgICAgICAgICAgICAgICAgIC AgICAgICAgDQogICAgICAgICAgICAgICAgICAgICAg ICAgICAgICAgICAgICAgICAgICAgICAgICAgICAgICAgICAgICAgICAgICAgICAgICAgICAgICAgICAg ICAgICAgICAgICAgICAgICAgDQogICAgICAgICAgICAgICAgICAgICAgICAgICAgICAgICAgICAgICAg ICAgICAgICAgICAgICAgICAgICAgICAgICAgICAgIC AgICAgICAgICAgICAgICAgICAgICAgICAgICAgDQogICAgICAgICAgICAgICAgICAgICAgICAgICAgIC AgICAgICAgICAgICAgICAgICAgICAgICAgICAgICAgICAgICAgICAgICAgICAgICAgICAgICAgICAgIC AgICAgICAgICAgDQogICAgICAgICAgICAgICAgICAg ICAgICAgICAgICAgICAgICAgICAgICAgICAgICAgICAgICAgICAgICAgICAgICAgICAgICAgICAgICAg ICAgICAgICAgICAgICAgICAgICAgDQogICAgICAgICAgICAgICAgICAgICAgICAgICAgICAgICAgICAg ICAgICAgICAgICAgICAgICAgICAgICAgICAgICAgIC RtPIYrLYMrBEVpXMXdXXJnGPAyDNJxFAIeCGJdXVXwMZr4H2vjTAZaNPWlHL2cBSe0Az9+DQoNCmVuZH A4rlQaiV7XIV6pt0ExYHorBOYkf7HwWBb2NZ4MJMWxVHqoUB2FLBgrez8QXGPpXOWzhWLAq3zpEiReHQ S8WTWxGoopSA4GADGmX0vzltVrARAwJRTBZK1EPjMb K3CnhY56VVLSCn0+HCfezwMxAwgBArQ4SKIhe9CjLFg3AA1PGWJmZgqus6WsCWvfIINRDUduRN4ZRUZ3 YIV3PYPnIb0EGFZyX769wcLwVB5VUn3IKrCcTW9ngr9DVYmaLGDnQpaCUeg3IWgrPL3ZqOUcTWiHn20n lQu3frReuZUUFDPeBC5cE10hZClhON7VSPX8WDdzRX 1mNNXfULNdZzZmHFUWAM2BJOFuLVDviCNwKUXwKXVOHU6FLTauDVT1TslqatRtrOGtVClvFM5CIBFskm QgMTcgMCBSDQo+Ck2VGH0fx4WtRByuVXOuJB6fqb7YMLkTXpVeU7E9cUUqS5K6HKytPo5RQVAqOEVvUA WfGIOAFPvaEJ4BBH9hzuH6IE8BtLVoCWHdRJKaoGLx QUa3P67ibPOdIGdeHL4BXRG+Dillon+Sw7IROIgNSStWHHcDoKdXQXBNhVpG7TaW9YUj6QbC1IsOV96vIcc ydVsSLxqPX3NHR0wPCHwWTMGWY0GgAKctU4iljSaScXaMPRRApFqA58veQAsKCTlZCO8XFEnIc5PZENs L1IremVfoBvjicXlCZCyIBEENC8TGItptrVmlVTxpV lpOR05sIfzBT5MLz6WMhUqTR6qbh4YmBGtSr3AVPHxRO6OVOOhSVBxLADlSTZ2MFTxQuJgHHmuMRHaMJ NsDVF1LFIdXXWcEI6QQsKxNJRrNLH6VPgdHEXlYGMsxc4ECZRhDZRaNuQ7HhCoXMGuRVVuADetBVWyUX UlZLZ0XXZiWYGvYB2UHyJzJOGrUBWxHZFyZULxWTQe nx5TOQKjYFAbDJDbFFAnLDCuBUUrGOfoUISaZBBsDtU2MQOkMNRvKW5NHrGgQCHkKTJ8WulyCZByFKIs ye9KJYBjXCUiXze1DtNeOBMyVFQcNNtuJPHiBNUjPcHiWOQyLXLkXA2GPfTcKLNbDWT6NFesRLKyODVb ez0CIRTwNAYnQYC6PSDfKDKbPTHbWZdeNZNiZME8QZ I8QKBuFEAaYG8TNyJyPLGoFPEaGTrgUEYzJFOyjz5TZHPhEUMbJAEaWIBfSRYsVKLwCRytCRGqCYX4SE V5JCYtFRFlFY2XHpEhQIZbEPnsNUYiPPXeAZYsbb6UFEWgJKNgEuO3PHKzUBOqMTMsEMgpOEUwFJZ7LF H9WHPkOILjPX3DPnKuCCdaXLPVHpn5LNhyO1s1FFZr EK9BL3Lxa2IkIGptPFHXYGmxHD5twiTiGCAsLv3SD0oFKhj1XKTgXVRySTN5LadrJMNvGhIzHrdkZQNy PDJ2Z7XtSO9nHNX3G2T0SAZqIzzkG3Q9WoTqA6EuNOBlSUH8RSs8BJKpKlYfUM1WZo6KAdU6DWM3jNZl Qh1KItg9SL5JOQXQR2MIIb== ID Date Data Source [id number] 03/15/2021 10:14:33 AM EDT [facility] Name Value Range Interpretation Code Description Data Stephanie rce(s) Supporting Document(s) Care Plan [facility] GHKPQl3vUnHRDcIc72/KFCysJCZnw5HjEVuyGIc0PMunPXWdE9JxGEA7eR9wXII8NTwRLtPhTbBlMYR7 lbm OtEztAEcKcZDDqCuaIMdVsRQifEpemqSShZI6XiMN5TSUhU16lSYSvZWRuV1DfTOGjSEn+Gj5QJOKnuD WuDQ5OZiaF2Gaoywy1WS8mDX4Uw72bNywPNHGObMjBShUbsoHkrF4wdh9SQuPo4uHGtka79ULWAjOk8C KSW7fdCTiAVJUjQern4nwWIAOow7/STDxPXFI3q/s1 kOW9hIdyziN1jnm6pTm9vF3IPzKszhW+QvrVU1+/vLx6jW8Mm0DjGuEPk2RKxoZeiPvLqRayOxbvsaa+ pHU4jy5uKPCyzjKvAQiVHiU7YINy54nazlUV+FqS1eLXQ85O82TZuu+VzOi5bOPzcDpDADLajqN6J0yp gclbv+mxzgx6K7HVAYoAh5yKKFHSS5/dhvtocj5Bw7 [file] ICAgICAgICAgICAgICAgICAgICAgICAgICAgICAgIC AgICAgICAgICAgICAgICAgICAgICAgICAgICAgICAgICAgICAgICAgICAgICAgICAgDQogICAgICAgIC AgICAgICAgICAgICAgICAgICAgICAgICAgICAgICAgICAgICAgICAgICAgICAgICAgICAgICAgICAgIC AgICAgICAgICAgICAgICAgICAgICAgICAgICAgICAg DQogICAgICAgICAgICAgICAgICAgICAgICAgICAgICAgICAgICAgICAgICAgICAgICAgICAgICAgICAg ICAgICAgICAgICAgICAgICAgICAgICAgICAgICAgICAgICAgICAgICAgDQogICAgICAgICAgICAgICAg ICAgICAgICAgICAgICAgICAgICAgICAgICAgICAgIC AgICAgICAgICAgICAgICAgICAgICAgICAgICAgICAgICAgICAgICAgICAgICAgICAgICAgDQogICAgIC AgICAgICAgICAgICAgICAgICAgICAgICAgICAgICAgICAgICAgICAgICAgICAgICAgICAgICAgICAgIC AgICAgICAgICAgICAgICAgICAgICAgICAgICAgICAg ICAgDQogICAgICAgICAgICAgICAgICAgICAgICAgICAgICAgICAgICAgICAgICAgICAgICAgICAgICAg ICAgICAgICAgICAgICAgICAgICAgICAgICAgICAgICAgICAgICAgICAgICAgDQogICAgICAgICAgICAg ICAgICAgICAgICAgICAgICAgICAgICAgICAgICAgIC AgICAgICAgICAgICAgICAgICAgICAgICAgICAgICAgICAgICAgICAgICAgICAgICAgICAgICAgDQogIC AgICAgICAgICAgICAgICAgICAgICAgICAgICAgICAgICAgICAgICAgICAgICAgICAgICAgICAgICAgIC AgICAgICAgICAgICAgICAgICAgICAgICAgICAgICAg ICAgICAgDQogICAgICAgICAgICAgICAgICAgICAgICAgICAgICAgICAgICAgICAgICAgICAgICAgICAg ICAgICAgICAgICAgICAgICAgICAgICAgICAgICAgICAgICAgICAgICAgICAgICAgDQogICAgICAgICAg ICAgICAgICAgICAgICAgICAgICAgICAgICAgICAgIC AgICAgICAgICAgICAgICAgICAgICAgICAgICAgICAgICAgICAgICAgICAgICAgICAgICAgICAgICAgDQ a7K8cnCMNySTZiVG4yZMu0Bu3+GGwGFdOuBZL6zmYboZ5OHD5ww2GvWGuzMRCda9FsRKr7HV1AMCNtVM veCQ1BJHybxr4ZTUTcXXHrwJLLi8kaBkIfEEA6YTGz PwtuQW1KQJWjR0aflgDoOFZePDFWIF6ZLtZcH0PckE00HLGVVf7+XWrpsqYnLbtUKuR0ZCInq4EdLDn4 CJ2QDQRfVipmn4OkLpQhBRDITAldJO1YHJV6IYT0RODtZs6HRBCfN555gyWcUI7VQt0RMjRvWK6sok0A ClSbNIKjSxfVWhc5YDnuHA7SzJJgQYvNKARhDKGySP 0jGgyuMJEpiASpFLIPr9A9XOOpPEKAHXO4WBjjBX1eFZItGJQbPaA7MFUQTD0ZWWQyAICmtTEpRIGqBK YAZN3RTMmvRZU6RcgckxAaeGDsNSkxQX3POHSikeRfYlCmHEILUJl+Kd2RPR2un1TxZDnkOeIgQC3ypu 1TQYxLGsKvT3M7oVEuZ3W4ACgbTs1QAQEmEPXmMfYg YJQTSEoiYH4JDP4extB8PF7HtGGyTSNkZQOezFJzJRh1O39xcYMeAAjnQH2WBID+Dillon+Ts8BYQFeLQDl TOQdXoPjVAUNJbYyZ8EvG7QPo0BfS4AqEC72yJwqigYpOErdKQ3RAN4oTQBmHFGVJF2UbLElmV4mosFg KBKsZPNHCnSkW23bmRYvCLNqFSU8DQRmYs0GBEVaO6 TsxyZihTlosnImUYHqJVGZQZ3SKMwentVimALnrYdyRL78pGceEP8DSu7JIqUhJW1gsu7BzZAlCz5BKD CsPS0IIHLdRIIiUSJjXZI3KMYvNbNzNXsgUTXaQEVqPHG2DTZpPQCcOF6TLrLgCICiOvRhGrlfWARnUR Rzsf6KVJBeOJYiWvt7GIKyEHSqUNWwRJypIQYxZHCr FUX7TOYoEPTkIJ5RDjQsQAAaPQG8KgIoYODnVYDbxe4MGHQlIKAuKySeZAPnPTFqNVQpLFwqOHJjEFBr BTa5UHMlQGAnNC3NNfLeHXEeXER9DBzaFLLzGCZdpk3UFPLpBLPhIrs6DbKdNUDdGEJfNIucEZKyDSI4 NEPiEIRqFIVmHW0YAqSfPOOcAMQkVrkeHFPiBTOlkp 2JINMfAXVoFCCdVAZjNUYpSVMcAPrbWVVgAXO9TlojLPGjVRLbGX3EWhDlTDKgWUf1VPVlYEFzNPCuow 7WQVTyAZHmTIS0WICvUPYtTRXiKYfsEDUvLPT7LQY9UWNyXKDiEC6MJoGrCQLpAHy2FZOrZSXbRRYlrw 6JSHGpFMPjYDWbEnFlHJKxFDDgMAmjPYNgGZC3CdNw JWEdPOStKE0OKiCrDFQzCHv6MUbtFSVxGRAytu1OVOXjFKTxXFq7RYUcYRYgKOQeAUppESXjQBUeSFE9 ZONaZHOpIQ6UPtNpHFYkAjGmSLpkIYXxVQQegr0PEIOcHUEcPXBuFOLwVNIpSQAcRPqqMBRaEEIwDNk6 MEBaULTuFM5NGsMyIISsLsRnHNajPONqFDSdyg4UVK VxHFFbMmG6BVBlOTEmPXMtNOg2wmChfGHkTJb4RL1QG1GmjvXdEcdXRo0Pz659ZLJ8CXIkAh8RK7sfUv 1hSQTfQZJHVb4UNRu7TSA0JVOhUZraELN0KPx8XUGzSnHiPNNlOdu6HNSpBrS+BPyaFML9EuL9RRPeVI CzIcodH4P4IMJsJ4L0FYW3YWUvXP9uZJGPBx1+SBwguBKikMjrJVTGTjZbRRF1GFeaSXQZWk5Y ID Date Data Source [id number] 03/15/2021 05:49:27 AM EDT [facility] Name Value Range Interpretation Code Description Data Stephanie rce(s) Supporting Document(s) Nursing Note [facility] ABHXAt0mTzEGQhRl79/BRMeaSQRgx5LuZEdcWOk4FVngPDPgA3YsDED0gI7pCTE7KKmNJkNkGhOwDKQ3 lbm [file] PVM7QZO1HvOrIB4ORu8KTdA1LUG5oXDqYe2STaW4ZjRCPpRaJZ9DGNi= ID Date Data Source [id number] 03/15/2021 12:37:56 AM EDT [facility] Name Value Range Interpretation Code Description Data Stephanie rce(s) Supporting Document(s) Nursing Note [facility] XRRQRw5oFdSLRvHx15/KOYirZGNsr8VtRJvvJLv3DPwnMRUzZ4UsXMN2jU9mADI0LOkUKvJvLzWwFRL0 lbm [file] ICAgICAgICAgICAgICAgICAgICAgICAgICAgICAgIC AgICAgICAgICAgICAgICAgICAgICAgICAgICAgICAgICAgICAgICAgICAgICAgICANCiAgICAgICAgIC AgICAgICAgICAgICAgICAgICAgICAgICAgICAgICAgICAgICAgICAgICAgICAgICAgICAgICAgICAgIC AgICAgICAgICAgICAgICAgICAgICAgICAgICAgICAN CiAgICAgICAgICAgICAgICAgICAgICAgICAgICAgICAgICAgICAgICAgICAgICAgICAgICAgICAgICAg ICAgICAgICAgICAgICAgICAgICAgICAgICAgICAgICAgICAgICAgICANCiAgICAgICAgICAgICAgICAg ICAgICAgICAgICAgICAgICAgICAgICAgICAgICAgIC AgICAgICAgICAgICAgICAgICAgICAgICAgICAgICAgICAgICAgICAgICAgICAgICAgICANCiAgICAgIC AgICAgICAgICAgICAgICAgICAgICAgICAgICAgICAgICAgICAgICAgICAgICAgICAgICAgICAgICAgIC AgICAgICAgICAgICAgICAgICAgICAgICAgICAgICAg ICANCiAgICAgICAgICAgICAgICAgICAgICAgICAgICAgICAgICAgICAgICAgICAgICAgICAgICAgICAg ICAgICAgICAgICAgICAgICAgICAgICAgICAgICAgICAgICAgICAgICAgICANCiAgICAgICAgICAgICAg ICAgICAgICAgICAgICAgICAgICAgICAgICAgICAgIC AgICAgICAgICAgICAgICAgICAgICAgICAgICAgICAgICAgICAgICAgICAgICAgICAgICAgICANCiAgIC AgICAgICAgICAgICAgICAgICAgICAgICAgICAgICAgICAgICAgICAgICAgICAgICAgICAgICAgICAgIC AgICAgICAgICAgICAgICAgICAgICAgICAgICAgICAg ICAgICANCiAgICAgICAgICAgICAgICAgICAgICAgICAgICAgICAgICAgICAgICAgICAgICAgICAgICAg ICAgICAgICAgICAgICAgICAgICAgICAgICAgICAgICAgICAgICAgICAgICAgICANCiAgICAgICAgICAg ICAgICAgICAgICAgICAgICAgICAgICAgICAgICAgIC AgICAgICAgICAgICAgICAgICAgICAgICAgICAgICAgICAgICAgICAgICAgICAgICAgICAgICAgICANCj w/sDGsA6ddhAZtruG2J1wnWz0RXf5MLM1ao8ZgIZPhTFbrweDaVkqMVvBeKKJtFqjYGta3BBprZJ7NuF FpC8OdE6MrMCquCP7GJLJiKYGrmFRtCRSlPQGkUuJ2 ZWIcHZnpKF7OsAMfWWecVBRdCZAnVJ8YOPNnC212koQoET6XUp0FHtFmUM5cqj0NKjEvKKMqZshOPda5 KCnhLV1JdUSmcDRiVQWoMROKYbKsN2vpw5WsStTlRVZOYEkkOJ7Ly7PbdAEjQPa+Kj0UIR8kw3LhSVka BYWzEV1pzq1RGRwYTuKnM8WieYavDM03koPqxgpvVs 08ZWQvqGUNDNQyezBVSHRlk0EoFFJAZJO0ARacQm8aEABvNUPkFkBcYNZWZD4CZURzQAHmdEInFIDoRQ IDWQ4SFWutHCB4MkfosuRyiGDsIHfgQZ8BSSDfoeBtOrGfFHRPSQp+Ev7WEQ8rg5KkAEecYvGcYO8phj 9JGNlHFuJbK8T2nRBhK9E0PUdlEe7MYAOnEPYoToYa BVDDGObhFQ8IWY0fhtQ5EX7WyPKqYNLaZITqjKYlXDc0B78moZTxGLgeHE3YJXH+Dillon+Yh8XHDOyWYOj ZDNyYuRoEGUDPyCqE6GzY3IPf5AtJ6SkZQ15xZdffvAqGIhoVU3NMC3jZZLkUJSSQQ9TdNDwtM4oqmXq HVDrKYEMQvQbV19wiGAkHPThRBMrDZGcIs5LZMXwT1 WrasDiiYopfyNyNJZzLMPLEA4KUHkbmvGpnCLqjIjiJO26cKsrOM8KRg9OLoBwRN1edn2TaCXeDe3BHL SyRs4TEHLgKULqGAYoHYG8WJIbTvBcEUuxRPOrAHLpSOF1VFMdKIHfWE1BDyXlRIOoPsV4SUVwBZWyMW Zwub8LRTAlGWEhCtF1GUMxTSNcKJMyACnnVENoJSZs FPL8AETtJINdBK9ACnGmKQPwHQI6WxxbKXQrFCEtiv1XARCuIXKyJeV0ZkCcAKSwTMQmHTcuZCKiDFG7 BYKcCYQxLXGuOV4MFaWkFUPyFIJqCFAdNZDjTLQhcb3MAZYiGFFuHFJkHyDqTCJsSLBqCJdbDORkQKK4 Qtc0OGBuKTUrZA5LMjXwXMGgWWH1YHGdTRZxXMTgxt 1GDNCdAORzKNd6OFPpJSCrBNMoMRdvFENmNJH5XZG1YXCuZHQwVU9ZOrQdHMLaPRp7LjCjURFiBUEfar 5AAVPaBXFcZZNuYACyHNTwAAPtQUhmBQGiWZV2WHu4MWDjGGLpDV1CDjSlHUVwVWxbAvVtGTMbZXHntt 2OEIEiBVRtAGq4RbFsMWAiJXLaWDcaPIPpCDNaDMOc OTEmLXNfQP9YWeXqZVYjXnZoDwPjFHZxCBKqms8LCBOoRXFvQCKpUNYvXFNpUAVaFMagZDGsZGOfVFi0 DSVtLXVwHG7LWdNqDUMgHyQwZpXuFVDcAUCzby0XLPPxHIDaCzc5IgCxFAFqLJJxJUfbAXSbXXLvGEX9 PKGfGLBfNI3QQvGhVGVnVfO0IUvjRGJtIKPrnl8OmQ DziDevpl7FIIhKTw6XxRtnCTJ7LEbwYc6apQHhVrMnSVKQGy0SupWsSCDtDSGKWIvoCYBoJGQ9BmQ6MN g5FAEdVVt5XvG6VjXmVXKiKWYxJRu5BthcKfA7GtEmQUf1XTxgCWP5AIj9Uyp2EuOjLSGmKrR6EzM0B9 M+LH5hBNt+Cl7Ks7UrewL3tfJzABlaAkClEo6UUPGOG7AWNc== ID Date Data Source [id number] 03/15/2021 12:37:46 AM EDT [facility] Name Value Range Interpretation Code Description Data Stephanie rce(s) Supporting Document(s) Care Plan [facility] RASZSc8sBeXBHuNg33/EIXhaIATrm0EhYGfxJSm2UQrcGZHnQ2ZoLPK8qW7zDFT7LGrUCkSnIaGqYAK6 lbm [file] ID Date Data Source [id number] 03/15/2021 12:36:31 AM EDT [facility] Name Value Range Interpretation Code Description Data Stephanie rce(s) Supporting Document(s) Nursing Note [facility] KBCFUb4jRoMUMfZk07/REWenAEDlc8OfQAlrYWn4TXcvOGIsK0PfOHN0aH4dEBP3GUdFIdWuAlHiTSX5 lbm [file] 54Vuz/dPKdwFM/1eHgEk4M3mZFC2cLQor6nmUW8Yct4smyiLShBd+cU/wYeh80/H63TggUmd85ik+supervisor dock cPqWZ24CBWRFSBOoar4oMsdh4JN4ggv65IUVi+zgxTd9qYOiQETrf/PsTwFPSoriaVlJ+xXP/paVzBMa cNdKkeXEFgbkLBiDVGxNmJREOg1wZNwVhhlmeLHQgC nXTKt6T1VCTt+Tw+BJ+2Kq2xs8IEF5SOUoqJyxBD1vAOanWD2wgXwPgLHwNO+/urSII/noDlB7DukVtm DrbwFJgBqhLAObvk1g1YMVGxl4VVO2szluEVgaygRnv06FXTjHFffLMwa+gRjShQ5r35b9la1hr7hUxs RlS9TQB/ucJroPRw/ysdtzGO36xXANnjojVnD4pTR2 y9JNiwxl9UtAROrUywwoyGjjRbhTXVaVB1iYgOyzX8zXncRvtKjCOZDXyyVnXFvR1DReUPJWArEYlVjL aDL7nJYD0SKwGyON0SmJLJtuiTIKtNGIPtbq/flFQ9ENB+VXi90jJHy8VH5yLYqSjbvXkQosgd7Oqns0 dwBt29CfMXac5L3Mz1Mnm7lixbe7Y3Q/AnR8ooNTE7 fiKKTZ07u5x8AMv/ByqCPLyLeUbeBkUXAqwCG1IiQ9tcEWxUmBlKE1ZVztJsWDjNrLMWoC5hazvM4NEj qzcB6jOi6xyCy7TUfKCwFQYNsELx/uuobbx3EXOsaNiGjWEqi50t2F6aifdVxudD6Vf8KmlOIy1zL7NW 8m+/podJ35blDzuD2g8+xhKpRKveWtctqa5gxDSIlp +FO66Oe6sqQl8J7rOA1KEfQG1baun2mxJXnBc9Qy5P5O6mA/ZKt22DyI6epNDm8LEfLJ/I1Jcm3BjuI1 O9XNQdi+22t0rvnbiCf8+v7sjLXDRPseoxoaZeQCYEvHGOwquToMu2+XINxxBtfT1q/t4JHvGoQD1g31 7Bbo1vj22faFp71Zo9DgKY71gP0V1f31L8+mhEV1dm [file] Pavawi3OxDHWuf3ZTsEDu1xO65EhP+M19HoocA4G4odn4D+l8AfcOg9VVb51HRIVQmXo24jc91D8+a class lineman [file] YrAKE9Imb8Pr8hBHNATf2+KHxaqMWznZsmRXKMThN4GVR5GXetIWLKXy3F ID Date Data Source [id number] 03/14/2021 04:35:03 PM EDT [facility] Name Value Range Interpretation Code Description Data Stephanie rce(s) Supporting Document(s) Nursing Note [facility] IENRMz0uRlVIOnOf10/SHLzoQNOdh4EqQSmdDIl8XLmtOFWwR2BhJSP4rD3bLFN2ANfTVjCjKiYvLHOg lbm [file] m8LD7FBYV1BXLpAy2UFXIsFK8JRPSzVQBeWIMUSlWq JAUoHjZuGBAyDJDPZWlrPVCeP4EdUAP0BWFtDo6+WLsrCN6AH1SoIOK0VHt8FM3+DQxuYJ7MmROSJ4Io hABxZMvxQ9DBQX8RFJG6JR4OpARvLD7LsEDKR0QbgVJzRd9hDNKlk4RpZb6lJ3HACIFUNHTiGQehVZdo XEQnWMa9N1I5KMPxN5QHF506wHEvvTd2Xb5lW7CDHB tMYsSvRTaeEEsmBLMaNMt8Q3S4ZEGwM4VPN8SfLmEmuhSxG4K+XfTdDFBEZD4MRDQCZBo1D8L7bRRoE5 C9aUtMfOD3HB5LQX1EaJXsuYOol01+MxYTVbSyU4OBI8BXJN7SPEq5H6P8gBNjZ4J3fGrGmCB0AF7LHI 4UiIxuoIJmWi4cATgkGFK+Zs7MTr1NAeTdLG9jhr1M XpPpEKHjIkmCFiq0O1vjarn8rXPuEiM8P5O5AwU5uQAdRA4LL7W4nHObDHC9GDMxcYR+Ne1Jp0KbLDQs FTd2T6nmXYOrYTQkRjRchT82R++9iujxePC8F8p0CIUQcIIbpVhHhhJuH5rMGBR6g7E8VCk/Kz4KTLD0 rSy0iRMhJSKnEMx2vR6lrWt5BiBeUM16CKLwNWqgtQ 2xUeh3A5Fdn0OdNq5qHy5liCReJa1IYyAjZRF6efYfCaUMEfF2yZzxekjfYIQ2V1q5mWG2Ng45t0vpar Mmt9ThOlN2HDrpIWAqUhZaziYfKTS6ywYpvC7nxiTvSg1SIDFuVLaznkVvBoJVJq7FQpInPN54FlwxrB 1ldGE+DQogICAgICAgICAgICAgICAgICAgICAgICAg ICAgICAgICAgICAgICAgICAgICAgICAgICAgICAgICAgICAgICAgICAgICAgICAgICAgICAgICAgICAg ICAgICAgICAgICAgICAgDQogICAgICAgICAgICAgICAgICAgICAgICAgICAgICAgICAgICAgICAgICAg ICAgICAgICAgICAgICAgICAgICAgICAgICAgICAgIC AgICAgICAgICAgICAgICAgICAgICAgICAgDQogICAgICAgICAgICAgICAgICAgICAgICAgICAgICAgIC AgICAgICAgICAgICAgICAgICAgICAgICAgICAgICAgICAgICAgICAgICAgICAgICAgICAgICAgICAgIC AgICAgICAgDQogICAgICAgICAgICAgICAgICAgICAg ICAgICAgICAgICAgICAgICAgICAgICAgICAgICAgICAgICAgICAgICAgICAgICAgICAgICAgICAgICAg ICAgICAgICAgICAgICAgICAgDQogICAgICAgICAgICAgICAgICAgICAgICAgICAgICAgICAgICAgICAg ICAgICAgICAgICAgICAgICAgICAgICAgICAgICAgIC AgICAgICAgICAgICAgICAgICAgICAgICAgICAgDQogICAgICAgICAgICAgICAgICAgICAgICAgICAgIC AgICAgICAgICAgICAgICAgICAgICAgICAgICAgICAgICAgICAgICAgICAgICAgICAgICAgICAgICAgIC AgICAgICAgICAgDQogICAgICAgICAgICAgICAgICAg ICAgICAgICAgICAgICAgICAgICAgICAgICAgICAgICAgICAgICAgICAgICAgICAgICAgICAgICAgICAg ICAgICAgICAgICAgICAgICAgICAgDQogICAgICAgICAgICAgICAgICAgICAgICAgICAgICAgICAgICAg ICAgICAgICAgICAgICAgICAgICAgICAgICAgICAgIC AgICAgICAgICAgICAgICAgICAgICAgICAgICAgICAgDQogICAgICAgICAgICAgICAgICAgICAgICAgIC AgICAgICAgICAgICAgICAgICAgICAgICAgICAgICAgICAgICAgICAgICAgICAgICAgICAgICAgICAgIC AgICAgICAgICAgICAgDQogICAgICAgICAgICAgICAg ICAgICAgICAgICAgICAgICAgICAgICAgICAgICAgICAgICAgICAgICAgICAgICAgICAgICAgICAgICAg XKWeBWZeEXVeBHIfVDKvDWBcLBQyCFKhEZi2B5ofSKFmAGOdFL6wSAg6Gj8+XSsDVzIpJTO7xcJlpF4Q AA2hv0CmINinDKJxa7QkOKt1ML0XONUzXMpiFE0KCG yxgb3AJHDzVMSiyCOOv4eyXdKxCXO0OMHbVxqkWB0VDVCcM3xxjmOtRVPfKUDQZO7QAvWxL7AymE34CL ENCj4+CXllmnVmVnaQGuZlUXCir8KzRZi7MI9WVJAgYdgtf7VuBeFaVIIDGRptCC0XCQI2BSGfPUXyGf 4XCWIqX794nxGeOB6AQe0KErIbQK4arm0YSbXsMSUz TptDFrt6IKhoXN0KeKXuEJzDqEEsgW8uCH1ocHHdVqpfXMlrtcHwEgtevSFuu7miy2jmNZMCDKN4IPuy Lh5yQMFuZHX3ZzM7NAZAVQ4FWCKdGSSysMClPHGcJAOFTC3PQWnfXTA7OqqifgUypUUmIVpsXU9LQQJf bnQgMjIgMCBSDQo+Xv6WPH9yp0CsVPwyWUCdRU0grx 8ZZNmQMcBnI4G3kQZkF4I4NLrwNg7BINRqPDYmOiUfMEQFFYpxRE7ZCM8rtnZ4ZM4OtEJtMRZfWZShmP SlBTl8S33wkOXhHZkmUA0DYEE+Dillon+Cd0YQHPcMIDwRYTcDmWnDNLYMnBnV3CaC1PSr3RsQ9LaVW92lM xipjIsHOswJZ0NSA0hYLQpMHFCUY5CxPZqnB7ionXt HaIcOLEBLkEgW26izXCnWSSyNOKwKBBrYw4MIPUiQ7IalgNwiFiwpjAfGVBnMWWZBA1NHMgdkgLyvVRt uSxeUD72yHwaTW5RGb8ZMdInGJ3fzm7DxADiSg8PNUEqTT3ORDEbBNUxPFWoNFB4MGBqMtHcTCpmORZy YPOfSRT0JGGcBUKmMW5XUeNpIPDjWQy7XDdjMDOjLS Pbni6GKWKdYVClRTqyRyTpLTLpTDMpMIjhFVPtVEMeTWV7NMSiPXFuNP4KDbEsDRVpIMX5VqCmAJChBU Xwlg7XRLNtIQZjUEzaHVYgJJDzQGFcLVaoKHKkMEFvIvsvLYAvFGStQW9YPrVtISKgOMN2VMOaGSSePH Mmnf7WWWRoSAUrSxQ4EXJrQXJyMQKeOPvzDQVfJBF4 NPD5XYGhHNJtWV3HGhZfBKFoYARhGiFwBWVrLVPdzt2MMRKmIYDaKODoMdXlWRWuHGTvCXuyQOItSKX3 YaE8IKJgXUSnJG4XKyPnDPXdWCibKWLbRURzDQJdkp1BRJSyTOApQbD8CDYdCFDzUMJsBOauEOTuWRV4 JUJcFLSiTFZoKH9MEvTqRHUlFCr5BuGhVPTyKLJycs 2SAICxIYCmBJWnSCYeKQHsJQXoGGfhFQJsBYH6UEZpEZZfIBUdVB1GAhSkVOHsVOk2FrTdAGTtPYYxhl 8NWSOaDUUgVZX4NpMlWJWsJHNeRCgkELKcQJDfJXUiGWRnRWRqLV0KMeCaVYClPbA5EKCuMVCrDKVxcq 8XDEQvBRReKNI9CIPwMLSwSHQxIEv3ocIczTUuILr3 AL0RD3UtrpFaQaUGXr9Ue723IFR6LARqTf3OV4voZs7yTLHvUOZZHl9EOId6ZcL6ZrX4CCG4PlmrNgn9 YThiZTRiMDMzYTNjYjUwYmI+UXxqMqBgPPr0NeTaDXKdHnboJKBsZUPkSrYiF2PiFMPqSq4iHPTCKj1+ FDdlwDDohIjrZYSCIiAfWhh7FBkcADFIEk3M ID Date Data Source [id number] 03/14/2021 11:53:06 AM EDT [facility] Name Value Range Interpretation Code Description Data Stephanie rce(s) Supporting Document(s) Nursing Note [facility] ZEGDHa2kFrBMSpAy88/DASahOADcf9YxNDmkRXu7XQikNZAiY7AbTLH4gE9lMGK0UIlOCkPySiXjDDNu lbm [file] O5CUJjFeH9NwBbKnSrLmXmRbQpVE8OQr1MCiR7TVC0hMFzLd4AHzCfLInABwOcWS3XKWd= ID Date Data Source [id number] 03/14/2021 11:44:44 AM EDT [facility] Name Value Range Interpretation Code Description Data Stephanie rce(s) Supporting Document(s) Care Plan [facility] OMGUFi5xAhRLImXh24/JXNoqZDGmo4CuKAcfWMd9ZWbmGFLcJ2LqFON4tJ3nFAI1WWyTTqRrIaKiROFb lbm PjEdkDKpAdNEXoYeqMNrJlFNguVlsjdZJuOG6MwTF0ILAmA11gSHNfCWDbD0PkLYy0AI4+NCpfQVM1xo IlgK7ULTXhAQay4zMGug+w/4DHDocSENtuIbmA6lUIzdgDk9XXgrZ9GP7rh0ZV/psRt7Ie06qX6tEPlU YSHjluZcgbqhSB4a0ukMCcTRD/2dM4PgaYeTkBEeVs FmLVKxFCCwQzLCwWuFfJ/1iMpyDVGPctVQitWWlOBJbAyNGHQTHA5JlCLqIwRwg8cQRhQDnfv+4xAxcO dUsxKIs7zSqveAteZs4z2hS3oS8MN1igfzHrDUtpfZZjD4TLUWFKMlx1gF2CapDXyDSpMAakBATwHF5n 7gCTWfrli6uyM3wT3kXyBIjptcb9hCoZK30xfDthPz mpUDZ4naOtOzV9nhwi/QRPbfuakQojbB0atH1JHbAbnJO+vwTMvanN4y920Z9AGCM0qbvw68zBE0Kyq7 yt4PuInjsWDZdliGevYRd7x9dWaA9BMTdpw45a++Ny4CjNj+mPcbrXEGbmDDeaV/ruyd++YQlPB3VvXJ4 [file] ICAgICAgICAgICAgICAgICAgICAgICAgICAgICAgIC AgICAgICAgICAgICAgICAgICAgICAgICAgICAgICAgICAgICAgICAgICAgICAgICAgICAgICAgICAgDQ ogICAgICAgICAgICAgICAgICAgICAgICAgICAgICAgICAgICAgICAgICAgICAgICAgICAgICAgICAgIC AgICAgICAgICAgICAgICAgICAgICAgICAgICAgICAg ICAgICAgICAgDQogICAgICAgICAgICAgICAgICAgICAgICAgICAgICAgICAgICAgICAgICAgICAgICAg ICAgICAgICAgICAgICAgICAgICAgICAgICAgICAgICAgICAgICAgICAgICAgICAgICAgDQogICAgICAg ICAgICAgICAgICAgICAgICAgICAgICAgICAgICAgIC AgICAgICAgICAgICAgICAgICAgICAgICAgICAgICAgICAgICAgICAgICAgICAgICAgICAgICAgICAgIC AgDQogICAgICAgICAgICAgICAgICAgICAgICAgICAgICAgICAgICAgICAgICAgICAgICAgICAgICAgIC AgICAgICAgICAgICAgICAgICAgICAgICAgICAgICAg ICAgICAgICAgICAgDQogICAgICAgICAgICAgICAgICAgICAgICAgICAgICAgICAgICAgICAgICAgICAg ICAgICAgICAgICAgICAgICAgICAgICAgICAgICAgICAgICAgICAgICAgICAgICAgICAgICAgDQogICAg ICAgICAgICAgICAgICAgICAgICAgICAgICAgICAgIC AgICAgICAgICAgICAgICAgICAgICAgICAgICAgICAgICAgICAgICAgICAgICAgICAgICAgICAgICAgIC AgICAgDQogICAgICAgICAgICAgICAgICAgICAgICAgICAgICAgICAgICAgICAgICAgICAgICAgICAgIC AgICAgICAgICAgICAgICAgICAgICAgICAgICAgICAg ICAgICAgICAgICAgICAgDQogICAgICAgICAgICAgICAgICAgICAgICAgICAgICAgICAgICAgICAgICAg ICAgICAgICAgICAgICAgICAgICAgICAgICAgICAgICAgICAgICAgICAgICAgICAgICAgICAgICAgDQog ICAgICAgICAgICAgICAgICAgICAgICAgICAgICAgIC AgICAgICAgICAgICAgICAgICAgICAgICAgICAgICAgICAgICAgICAgICAgICAgICAgICAgICAgICAgIC JwOQIvHMWqGKz1O9jpGICmQUEkAC9uLRh1Hp4+IAwDRxSmDSP3frAirY9WES1xg7DrIKylWUYrb8PkQP y8TU2LBAQqOWlfNV9PWSkjmb3PNQUoORYceYTVd4yw KwDhPIH5OMQpBrdePD6LYRNdL8bucqYqARGkWPOPIP6TAkKzO5HkeO14LNJFAh1+DQplbmRvYmoNCjI1 UCIle3AtEJi5IL4HWKGeDfcnz9XbHeYaSNECNRrzLQ9BCPB7OPO2TKKpSn7SNKRbG893ucEaCE1OWh3D AqFmZH5xwc8HEeVlLPXrUrnIClf5YZenCN2WyDFnKY oKWEAcPFBoFA0ePndwDQvocfHhZuowfJIjj7iat3zeIFJLVBL7INpwZu9eQDXdSXAmWlH4LCGFKG9DVQ XsSYImtQWuFESdANUBEW6NAAqkCAP7JwljyrFqdCKgZAbuMO0LPJYhjqNdRpAiTCZWMDo+Vk0ADP2uq3 LhTCrmXeCpKY6vgf9RCQtRXdFpO9E7dPMvS3J5DMnq Pl3APNBlJOAoPlSpOHFMDQpqMU5GRF8hpbX7FP5OuEWwXRGuCPHbjBRdKHs3W80kjLRwQHxuBJ4HVKX+ Dillon+Yd2ZLNWcSDTaIVHjUnFyQFVXRbWqZ4ElR7FXu0EiT9FiBV53qYvmmxXoOJbkZK2REU0wONSqNWET NO1MmDLvpE7uujBsSWNzHKWFKxXyB62flPRcWNEjVZ L8AUEjSh5XMUQpL9QgfnMhrGkxexKhKSCxJEVJZW1ZJWkrlfWagUMozLumDK31wJglMY5MHt9DWyWfYF 8vra2AxBDvTa3HZYHwRX9IOXSpJVXjICQyALJ3KSTnLwIvNEjpIZBmOOKdSGG1HMZyETUjWV7OFsZfGP GiYxNxFzPhOYMaCXEarh1SMXHiGJMdIRz3KtRjPEEi TNYgKIvtSHVtSOJpKLQ1IGFjPIYtVC2GCyVuKTYjYOEmVvGdSSHsWYUgcg6JWOJtKOEiVXHzMeQbDIGr BWYkHQxuCDXaLKByVps3CYBfHCVdGY1GPiPzSJKqHEN4OONsBKXjQCAqqw1PFNCxFDKcAoq4SOFtDPMt PARsLRjmHUImERKiTvE1KTSaIUXvMT3HVoYaLSUyGF N9QpIxPHCmZRFzed1YBAJtCFZfYSJtANOrKNSzQKNvWXbqXFDuHWD9UYQ7HSOpDOOrMF8GIwErMRNxUJ K4VWCtLIRxNRKhve4XKAKsZGSfLzn1ZbCpMUGmHATgYVpvPVQeBZG7RbWbDBYdETMkQD5KEjKwCXBsER ztFjnaWHAqBNXkpd9RKXZlJMIrIKSrYTJhQVBtYSDb JAarIVOrPRC7OWQ4SHArNXDgWS9WGeDlGWRvGLs4VWBiCGAzIUSlgk5AUKJvRYKrMYT0JqIyJRVvFIDh XNnzIQRcGQJ7FMUtVXEuMZKhFB9KHfAnLNTwHbQrSMVoQDGePNChyl9WGNBvBKVvWPVtLtYjMINkTSLi KGcgGHChSZHaIWn1KXTvIZGeTI0APgOcXTWmDjC0YD OvYPZaCTGoig8CHTZxBEMpZhT0QRQkVCJcYCJlSBp3yjYwtIEiJLc5EF3EA0GksiLqQnxNIr9Zw305YC O9PPAxXn0WW3bnCs5nSHRuXPWTYi4THWz6VYU4LGAjIKQ6UqS8WyUuALonEhL9LbmaZlZvLANfDjA+ID mtJKy1COL3DFa5OgA3LELySKH4GxxfLEMjKSBsOUJp YU3aROXEKj8+BUcfhVWguQkvQTVOUzRtJbQ6LQqoVMKXDc7O ID Date Data Source [id number] 03/14/2021 11:35:44 AM EDT [facility] Name Value Range Interpretation Code Description Data Stephanie rce(s) Supporting Document(s) Nursing Note [facility] HTEWIp9kKcFVPsZg70/FWWpuCEByp3CwDFgeEZb6TMntLSKgD8DqVVW3hI7oPKW2NXlUSuOnRbFlSHMo m [file] UKbwOj2ZLVRVU3LCQp== ID Date Data Source [id number] 03/14/2021 11:12:00 AM [facility]: [id number] Reported By: Maria De Jesus BARAJAS M.D. Signed By: Valeri BARAJAS M.D. Name Value Range Interpretation Code Description Data Stephanie rce(s) Supporting Document(s) ID Date Data Source [id number] 03/14/2021 10:21:29 AM EDT [facility] Name Value Range Interpretation Code Description Data Stephanie rce(s) Supporting Document(s) H&P [facility] NARIZo6cSzBQFyKq23/PTTotRAVik2RlYBowQHp3QOtqBCDaE3OqCUN5pU4cQPO1XRqQLtCjNbUcCTUw [facility] [file] jTSuBy6RCLM3ScWNUuGdSS4RRPy= ID Date Data Source [id number] 03/14/2021 05:34:50 AM EDT [facility] Name Value Range Interpretation Code Description Data Stephanie rce(s) Supporting Document(s) Nursing Note [facility] LQOVOz2lEkLIRkDl16/MVGrjGOPct9CuBJfxVAw7YOzsPUDwL3PnSUL9lA4cWAC6CYtUFwRmCcYkAHMq lbm [file] o= ID Date Data Source [id number] 03/14/2021 01:22:47 AM EDT [facility] Name Value Range Interpretation Code Description Data Stephanie rce(s) Supporting Document(s) Nursing Note [facility] CZTHYx6rAtFUMqQp90/MCHusDKWku5ZyOJspEQu8SOxjYYZjR3DbAGZ5rO1jJQC6WZzKMwTlTaKyXUYf lbm [file] Jf5KCkJ8LBJ1hIHzTe8TErYbCuXFWjCtKO5BVUg= ID Date Data Source [id number] 03/13/2021 10:37:10 PM EDT [facility] Name Value Range Interpretation Code Description Data Stephanie rce(s) Supporting Document(s) Nursing Note [facility] IVMPXl7gLoHYAhPj66/ARVbeSJMvd4ZoUXapHZv7BJyhVZHeC2SuMIF4uO4pEZL3UVcSSvCxBzQnLXBb lbm [file] Wm2KQzA6KSS5pDLsSa9HDwXjBOSTJsYwMR8GOBn= ID Date Data Source [id number] 03/13/2021 07:24:52 PM EDT [facility] Name Value Range Interpretation Code Description Data Stephanie rce(s) Supporting Document(s) Care Plan [facility] AHTAPl0uSqEDWpJj62/JDHvnTPLfq1RuWGoaEFe4JJndJZWrB7XeHDQ7tD5vFDI4PYlJGwAdDeTpEGBs lbm [file] cable maintainer+9D9OT7//+PWVFqjz5KPjsQslfRQ5vD4N1k1ppLjfWbb+t3vYnEaBPKmtgPk6MWPtSWbi93z1DYtl [file] NlCB88ubbqflvT3BgfsRgcoTslVUmhiNBP1tLW54aKJo2kHdlkCQuxF45b+ENyV9kvzgGPBG0S5E/Mohsen kSWsS5KREUmKLdnGY7OZ2eMoWaTKQ3/bUkbURUVQENxfAqeKlpyevksskyZlrFcLeyMJbRiOE84HrLCt 4fZBhPzVExxZ/JUQUeAN60FNILwWE5LSGwSKespQrS iV6GdpWlhsrqfFSaBtGtcGaKKDBYlihosKURrTqG5neambFJMO7ie5qIGddYlfEysOjU3OWxB1q0vv6k OryTbC1rYLtxnN3yBLPuTzGyNXatBOI3cYX5rp4PRdOywWQDld6z+BU161HoldbFmmbBFLxAcM3Pygoa xYF6ZR0pVyUKHRNLNrVMLlwCdiH5kdzgHtRBw9NGgQ KMeuYJsMeUsYhOrEIbVFsj72OiC/yBo0WtjlyUCqqWyVUmJSreVhlg9s+vCdw3nfLUqJmk2W4k7oHqyC iR23ufOr3AAIKo5ZBH2pGifaKuX7Z0Ww5+cI2x6dGqcwqsRfLNJJReKVjz4GYf2sMOWQ/LBL4VceqfpK ZlvLFgAfNgYBVu5DceRS6MrTAetEaCUAwXW3uLM+Peñaloza [file] DQo= ID Date Data Source [id number] 03/13/2021 06:53:54 PM EDT [facility] Name Value Range Interpretation Code Description Data Stephanie rce(s) Supporting Document(s) Nursing Note [facility] QTETAf7kFzQGAvOw67/XAVhpUZAzf6CiBXskKLb9UTytJSMsE6DjHTT9kQ4sFYM1MFlNHwPvRfLjVYVg lbm [file] AgICAgICAgICAgICAgICAgICAgICAgICAgICAgICAg ICAgICAgICAgICAgICAgICAgICAgICAgICAgICAgICAgICAgICAgICAgICAgICAgICAgICAgICAgICAg ICAgICAgICANCiAgICAgICAgICAgICAgICAgICAgICAgICAgICAgICAgICAgICAgICAgICAgICAgICAg ICAgICAgICAgICAgICAgICAgICAgICAgICAgICAgIC AgICAgICAgICAgICAgICAgICANCiAgICAgICAgICAgICAgICAgICAgICAgICAgICAgICAgICAgICAgIC AgICAgICAgICAgICAgICAgICAgICAgICAgICAgICAgICAgICAgICAgICAgICAgICAgICAgICAgICAgIC ANCiAgICAgICAgICAgICAgICAgICAgICAgICAgICAg ICAgICAgICAgICAgICAgICAgICAgICAgICAgICAgICAgICAgICAgICAgICAgICAgICAgICAgICAgICAg ICAgICAgICAgICANCiAgICAgICAgICAgICAgICAgICAgICAgICAgICAgICAgICAgICAgICAgICAgICAg ICAgICAgICAgICAgICAgICAgICAgICAgICAgICAgIC AgICAgICAgICAgICAgICAgICAgICANCiAgICAgICAgICAgICAgICAgICAgICAgICAgICAgICAgICAgIC AgICAgICAgICAgICAgICAgICAgICAgICAgICAgICAgICAgICAgICAgICAgICAgICAgICAgICAgICAgIC AgICANCiAgICAgICAgICAgICAgICAgICAgICAgICAg ICAgICAgICAgICAgICAgICAgICAgICAgICAgICAgICAgICAgICAgICAgICAgICAgICAgICAgICAgICAg ICAgICAgICAgICAgICANCiAgICAgICAgICAgICAgICAgICAgICAgICAgICAgICAgICAgICAgICAgICAg ICAgICAgICAgICAgICAgICAgICAgICAgICAgICAgIC AgICAgICAgICAgICAgICAgICAgICAgICANCiAgICAgICAgICAgICAgICAgICAgICAgICAgICAgICAgIC AgICAgICAgICAgICAgICAgICAgICAgICAgICAgICAgICAgICAgICAgICAgICAgICAgICAgICAgICAgIC AgICAgICANCiAgICAgICAgICAgICAgICAgICAgICAg ICAgICAgICAgICAgICAgICAgICAgICAgICAgICAgICAgICAgICAgICAgICAgICAgICAgICAgICAgICAg ICAgICAgICAgICAgICAgICANCjw/cGCkI7otcIEfwzL1K1scXp5EAt9YFQ6lq2SdYPVfRCgzsuBbIrfO DpNiVLWvMtbHNdh4NMasVL5BfUXrI9LaG3GcSNjbMN 8NZPYuIIZfhEGzKXHsGRMlGsO3GYYzRXxtEA0ScIPqXYqxOYLgUUFcCV0EABQnE879glAgRC6JNm1MTj ZuHO0bge9WXmClMUWzNwyIWgg3MZubRP6KtVGerWYgTpHqLXMLGdSlF7tcc3IhUkNsEELRVKuhBM1Bh4 VudCAxDQo+Kv0EHJ3vf8TpKNhjDeTpVN8rnc5LGZfX RoOtP7FjsFlpGT06kaZbrnkkNa67CWFapFZWg9TuFfUOU9V3ZQ0qRDXLSGL0MIozSq2bUAReZMR2CmU1 TKKGJE3YNDOmAUGryJQhWAVaSOQMAA1HTGxaJKE3TdqhuuGzxIRlKJpoJI1IISApldGzAtEeGEUOVLo+ Bn5XNS4rr8UmOOxwUVMbJY1czg0BFQqNZhWdW8Q3lK AeT5T2OSwsYn2LHSUoFDFpWnItWSLWFKidSP3RPH6cumR6XX3XvCEoYGFkSBHnwAAePKk0O41rpWCrBO gsRM9MJCS+Dillon+Id2PKCWxTEDkMSFaHkNtOCRIVfIdW3PyH8OOg8RzU4EkTX36xZzbbbMcEBcsAM1TLS 7bTPBzILJSVB8EqSAbqD6imgCgQjMeSCVFPwAgR22c oYEvVCLlDWYqGWCsOt9WIHZyN9KmtfBgsVighkRwHSKcOZSVLB6JYZlpnzOsqIQrlSpqRO31pFbwDF1Q Vx6GQxJdUD1ddr2RvHKkKj2DNUUeLL6CLJUpICDcXIJjPEG9QPGsSqToGDgpKUFoUFXbWPR4URSjJQVl AJ3LDzByWWEeFXm8RHrlGIMbSWSdpx6OBJIoJSXqVG EkTQIpIFMfPOZhYJcaSNUrBQXnJYV4XPXdJTOgQR3DDoQlEWYhWAVgUrllAQNdKQAjto4MVFNdVRYzGc QvVqSyFQIrZWLiDAhkMGFwAPIdOvjsXGEtUBFlRF9IGqGuLYDpKAI7YKJxSBCsMMQxgn6SUAHlJRQmXf N8CiRvSYXmASXtZFfsIJGdHDJ7BjQ6QZMhGMByZW6Q WuDoTKFyGOJ1GtSsDDIwQFAipx2YDYTvDHJnDYApJTLeBVBzTRCxHBohIVKlDAX6TmV3FMLnPOToOJ4T YkEyIQQkJNf8NTIrRWVzXGJszt7ZNDFcFEYkOmm0XNRcUKMfSTGwQVibZRXgQWI0DXD8AVRdYXBwXW5J EpFvQOXeXNesCaMwXVFeHNWrkv6IOYWkSJIxQEBvQy SvLNByDEZlWKlxGPQvBHY3BTEuOTVhCORtLV5HDnFkVGZaKVm5IdRoJEMoTCOdor4AKVClIBLhWAr3ZG YjSSDcNYQsMNuyNSIsVIRsRVB5ADYlRJZeGQ9WGqZrDTAcKkE7RZSlGQZaTERbjh3ZYXMlSOSxFPM0XQ ZjSTUpPCTyJSm0yyOtnLImLHy3MR3QQ1KeulIrUvKV Vj1Wt784JGH9ZPPwXg0PB8axCp2jWCTfGEOWKk2WCGg3KrktZKIrN3Y0BsJrYUCxZFQ4QrRzYmN9BLbo NTNlODk+PZtrRXX0QdIzQVmvF4H1DtT9POC7YUMiCBLuN5F6J7I0DA2pWPQBUu1+DQpzdGFydHhyZWYN SlTcYJi5WFjuBEYQVo6M ID Date Data Source [id number] 03/13/2021 05:56:16 PM EDT [facility] Name Value Range Interpretation Code Description Data Stephanie rce(s) Supporting Document(s) Nursing Note [facility] QCUGLc8eOuJSWbVr19/CDAjuRAFbp9UrCZsuJFq4JPcfQXDnK6UuELN0bX2xCYZ8ICrKQzHtSlUyUVGk lbm [file] 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/VbYra/88YbOV1sltl1ctPSEsRXF6ZSjDsf6e5o [file] JzINepVJK7H8FoNnT5KsGyDCElGiP+UQ5wRUd+Ll8Wu8SmslM7wdGlHXcqSGK2Bc9TCXGHS0GXWm== ID Date Data Source [id number] 03/13/2021 05:15:24 PM EDT [facility] Name Value Range Interpretation Code Description Data Stephanie rce(s) Supporting Document(s) Nursing Note [facility] IWPOYf2lPkAVKjSh38/ZJSlvWUEuq6TaZGuhYGz4KUwwMPXrA5NvBWI6zS8fZYP4VFmYVeSpVxLiGJCt lbm [file] JFA7ZNB9AzKxPT0BMy3UMmB9RCR9oKDpDo6HSyLgUlgFCfNuPC6HJFl= ID Date Data Source [id number] 03/13/2021 05:01:36 PM EDT [facility] Name Value Range Interpretation Code Description Data Stephanie rce(s) Supporting Document(s) Nursing Note [facility] PMVQDa8rScQPViCm75/ONNmqHSFgz5EaBMwzHMg9QNmoNUSnZ6KxDHV2pW3oGVI3NRpVAmUzXgXjJKOd lbm [file] YbXH3PRMb= ID Date Data Source [id number] 03/13/2021 02:53:46 PM EDT [facility] Name Value Range Interpretation Code Description Data Stephanie rce(s) Supporting Document(s) Nursing Note [facility] UFCCEp8gSbAGXnYr27/WPZfaCWHlz2JlACkyKPp5XDbgZQNeR7PnUIA9oH9pIBU5SNfXRaMaXvNcBBCe lbm DqJkfFMmIwQMLtIafMFjEoARqsHqdjwLNqSK3XpAS5VKAwK68iTGTpGVDmW5DsDXL2BQT+Oh3SKZHlsV LoGI5AUobP4P9Edcv9Za5cux9Wcv+fSYeTBTer2ovgU8JwriUQvbf6qI6PFXB2Llt2+Xyvl04Lebfylp V/ngYxopRNfKAQYNCNfqPRMzCm+e+yDDodOQoS5g/1 p4Bpcqm115mxlI4BHm+H7f4Ug+XQY3KR7QpZ/8tUli34epUFVtHaYQBeghnScK1IVI7Kztg2JtaYKLoh L98eprwf97sYR6FfI6gyc8UwlWVSzju0STJRvJ6AAEqe3dnLa3tplXa0lgYdLb6SH7bI73gakvi8k7Ir QCwXSS2bD2tuvwmjH3hxoz1THpHDET1tvYj96xKzDF AyCyNxi8ayZJjUjq+XrkERYaqQP0nXfEnH+eopJKCYUKSmcTUT9uYDCPXNrjiAnAOmZWPZh7f4dkw2Hv P52MgqrA1mFoQgnh15cX2/3lObjGPveQoYwvXwb8RytFYCI/LJaU8dppX1f22BXPG7IstR2brqtKEuZV iSMqBrl3ldyr6pML5Bf+d4fwK1mDp1Fkwa5qzwa3El B3QQbnaEUS1y3To0xEy0aZnIzyyNboG2kLpdu2VfG/P8ejX/+XsUndp//Nec/Dgc/Rsv42Y2vWiLv6mE HnkYbRcIzPBYUonVo7JjaS3cR8gTuCg/eW0vq5der0pVhx1Rxqbaa5R6kDFmN5LuHQn9YEPM+Gzca4Of aLN8mdDMKsuJjACgZDP6R6Uk3Y9DamVoj71MT4+hardy [file] ICAgICAgICAgICAgICAgICAgICAgICAgICAgICAgICAgICAgICAgICAgICAgICAgICAgICAgICAgICAg ICAgICAgICAgICAgICAgICAgICANCiAgICAgICAgIC AgICAgICAgICAgICAgICAgICAgICAgICAgICAgICAgICAgICAgICAgICAgICAgICAgICAgICAgICAgIC AgICAgICAgICAgICAgICAgICAgICAgICAgICAgICANCiAgICAgICAgICAgICAgICAgICAgICAgICAgIC AgICAgICAgICAgICAgICAgICAgICAgICAgICAgICAg ICAgICAgICAgICAgICAgICAgICAgICAgICAgICAgICAgICAgICAgICANCiAgICAgICAgICAgICAgICAg ICAgICAgICAgICAgICAgICAgICAgICAgICAgICAgICAgICAgICAgICAgICAgICAgICAgICAgICAgICAg ICAgICAgICAgICAgICAgICAgICAgICANCiAgICAgIC AgICAgICAgICAgICAgICAgICAgICAgICAgICAgICAgICAgICAgICAgICAgICAgICAgICAgICAgICAgIC AgICAgICAgICAgICAgICAgICAgICAgICAgICAgICAgICANCiAgICAgICAgICAgICAgICAgICAgICAgIC AgICAgICAgICAgICAgICAgICAgICAgICAgICAgICAg ICAgICAgICAgICAgICAgICAgICAgICAgICAgICAgICAgICAgICAgICAgICANCiAgICAgICAgICAgICAg ICAgICAgICAgICAgICAgICAgICAgICAgICAgICAgICAgICAgICAgICAgICAgICAgICAgICAgICAgICAg ICAgICAgICAgICAgICAgICAgICAgICAgICANCiAgIC AgICAgICAgICAgICAgICAgICAgICAgICAgICAgICAgICAgICAgICAgICAgICAgICAgICAgICAgICAgIC AgICAgICAgICAgICAgICAgICAgICAgICAgICAgICAgICAgICANCiAgICAgICAgICAgICAgICAgICAgIC AgICAgICAgICAgICAgICAgICAgICAgICAgICAgICAg ICAgICAgICAgICAgICAgICAgICAgICAgICAgICAgICAgICAgICAgICAgICAgICANCiAgICAgICAgICAg ICAgICAgICAgICAgICAgICAgICAgICAgICAgICAgICAgICAgICAgICAgICAgICAgICAgICAgICAgICAg ICAgICAgICAgICAgICAgICAgICAgICAgICAgICANCj w/pEKzD3odkVTwfzS6C0syBh7BKw7SUW6kk4ScTTByNQxvmwBfUfqJBwIlKAUyZcoEJni7MLtyVV7MkT ZuE2MxR1OsLDncQK6XSWSzQOPhjKIgISRfGJZuCsN2UQMoGAohHW6GmVFzORnlJKScJPYwJS2NDZYaT8 57cvWdLL5LNd3UBfZkHV0dzc4MYhWyPXTbDpbSZkp1 XNogUJ9EgJJchCYxDWBgVTDYGbIxP3ubh8QvYfZmSITRDKcmTX0Ih3WykPFkQFs+Zs6UNT4lc3PpCTbh GMYtZG8foh9QUVrTFaTbR5WnaVyvKL47ceQpnoewKq22KBZvrNMYs1XyIzQZF2Y6UI1oATOXUZJ2ODns Tf0iKEKmQUEpBvU1WUVRMX4VFCUpJJTbxVMvVUDrTJ TNRJ1YLAdwVWS1GoqfhnPjvCBeSQpqXL4TKVXezkHsHpUrVKYRCXd+Jp1DQC1dz4RnOQwgDoAsNA0lmn 0JKRwTHcEqT3Q0dJWdD6M7VRlpNc3TXTOmSDGhGiOfLALWOObvXU8GAU1yzbC4SN3MiOEsDWXxEHVrzB ToCSn0L84llYKyOAsxZP9HYOV+Dillon+Sd8PQZCrKELu VANdTtKaOPNEDsJdC9AxL4ZWr0KbY0DzCS88vKpbyxBsJDrpIE4OPH4jZPYfBNOKKL1NsTNraR0vuzMp TNJfMGVMKzFxD88zjCMfAOHyWPNqUPMkSp9UDMRzK5KkdpRpjEyvjsObIDEjYGHTIQ5UGPvmzgKhoHJz mFxxVJ00lAeqRC1BIs4VYbXuZJ4wlm0KcHXcVb2MTW MxPy3RWGMjMXTbETMdHET1HRFzSiYuIOjkKWToUNQcTEM7USZzCZOmKJ2DIyNsTUKbEwDaNVEpMUHxFC Pfxi2HZBXqBNZbHsseBAFsRNMcCGXoKWfjSPMkGKTlYJB0QUSdSZGcWE9MRcPgWGBfYWLeZfMjWJLiEY Uhvr7MUPBvNBWvUdVmMdZfLXWiNVJiLYozZXNjRCH0 Arv8DHZmAEPxVU8ZZsYsCGLgSBE2YDTxSNCvEWKqpz5UBTChBFVbNOT6ABFoORYcPUOaNCvlILHtMIR8 VmU4LQBuWDQiTK9BVjBmFSAbGVC6QvQqNPFgFDZapl1SNKPpQJWyUeNlCUNsVMQpCCOkASfsYQFoVQU0 OpZ9YHJpETKsTP4ECkFuNBXcEJb4UsFcYLVzERIumt 7DWJXlVIReHEi9EoJxXFFxGZIaXTyuISIcBKP4BOIfMLBzMJQnEE5VBuJpRCZwVEnuNimxXXJaUVFdqi 5JJURlRDHpBIRqNYGeSMVwBLIdUNrwEYZlUBOyWrv5OQPvFUMsMI2RGeAaPFFpSkW7IikeUMYvFSDovn 8YHLYjKBQmWDy5OtXdWWHkGZNoWTgpVVTgQGJtZMLr IQVaRLZuGC7YRaLxAWNyOfC7UohkOOVhORYtqs7JWLZcNTYbRtDiXiAuELAjHZWuOQaoJMVzUNClGRt7 GXOkBZZuSP6SDxStTDVlCeReFbXuHICaQFFrdy9JxWZudLsnxs0LWHlGZq4EuNdeQHS9MCflXa0kwVJz OwFwQWKKLa1PjyCoRRGxWEGPFZlaVZKjQTLsLMBjTV TuVhMyWzMbQzMcWmPfYNGhRQRjOLD3XIJ3SyN8ZYFoWwEpAFGeDLBgS5PtEpC3CLQ0VZNzEPReSwdtUP Y+ZL5cMDp+Ch5Tr2UnwqK3jzOkGEvqWeN1GU1DTUHLU8AHNv== ID Date Data Source [id number] 03/13/2021 02:24:18 PM EDT [facility] Name Value Range Interpretation Code Description Data Stephanie rce(s) Supporting Document(s) Care Plan [facility] WVXELt7uWxZIJwZn97/YAZxgQEToz2SwNOafQXx3KVloQNWaN3UpIHA8pQ3uHBJ2RWzZCrMgYxDwQIWn lbm [file] o+0omBTBFjjSOg9W0ba+surgical technician/HIvLLltdtVtdirlIpEr2+1h0yx80cvkZPFPEXwRxRnXlSTgxsLkDkS1o [file] Chemistry Account Manager+uUW4bmBd0CCbwKq6Efv6gXza4y6eK/BmQ0hsa8e [file] AgICAgICAgICAgICAgICAgICAgICAgICAgICAgICAg ICAgICAgICAgICAgICAgICAgICAgICAgICAgICAgICAgICAgICAgICAgICANCiAgICAgICAgICAgICAg ICAgICAgICAgICAgICAgICAgICAgICAgICAgICAgICAgICAgICAgICAgICAgICAgICAgICAgICAgICAg ICAgICAgICAgICAgICAgICAgICAgICAgICANCiAgIC AgICAgICAgICAgICAgICAgICAgICAgICAgICAgICAgICAgICAgICAgICAgICAgICAgICAgICAgICAgIC AgICAgICAgICAgICAgICAgICAgICAgICAgICAgICAgICAgICANCiAgICAgICAgICAgICAgICAgICAgIC AgICAgICAgICAgICAgICAgICAgICAgICAgICAgICAg ICAgICAgICAgICAgICAgICAgICAgICAgICAgICAgICAgICAgICAgICAgICAgICANCiAgICAgICAgICAg ICAgICAgICAgICAgICAgICAgICAgICAgICAgICAgICAgICAgICAgICAgICAgICAgICAgICAgICAgICAg ICAgICAgICAgICAgICAgICAgICAgICAgICAgICANCi AgICAgICAgICAgICAgICAgICAgICAgICAgICAgICAgICAgICAgICAgICAgICAgICAgICAgICAgICAgIC AgICAgICAgICAgICAgICAgICAgICAgICAgICAgICAgICAgICAgICANCiAgICAgICAgICAgICAgICAgIC AgICAgICAgICAgICAgICAgICAgICAgICAgICAgICAg ICAgICAgICAgICAgICAgICAgICAgICAgICAgICAgICAgICAgICAgICAgICAgICAgICANCiAgICAgICAg ICAgICAgICAgICAgICAgICAgICAgICAgICAgICAgICAgICAgICAgICAgICAgICAgICAgICAgICAgICAg ICAgICAgICAgICAgICAgICAgICAgICAgICAgICAgIC ANCiAgICAgICAgICAgICAgICAgICAgICAgICAgICAgICAgICAgICAgICAgICAgICAgICAgICAgICAgIC AgICAgICAgICAgICAgICAgICAgICAgICAgICAgICAgICAgICAgICAgICANCiAgICAgICAgICAgICAgIC AgICAgICAgICAgICAgICAgICAgICAgICAgICAgICAg ICAgICAgICAgICAgICAgICAgICAgICAgICAgICAgICAgICAgICAgICAgICAgICAgICAgICANCjw/eHBh O3czqBZrwmQ1D2gjXo7PSr4LIW2oo9HzVLSwSDigekKrKmxTBoNvWOBdVbeJTzb7FCmkYE4YbHFvJ6Ol K4ZnRUixJD9EVZUrYDDguWEsKZYrXOMlDbP3MVFtMU mdIB9LeXMwVUtrQAEwJFGxVlAlDXCtBE9JBJUnL254oyOgPs2PMl9PWvDcGD9ddq9PBpduXRGeZdfXVw q0VBmjZH8YtAPnyMTfSDOtWZOXZrRhV3svr6XjBeawDACTKItgMJ5Um0KvqGLsJCv+Bd6ZPQ2hm6TmAG ijVGIqKU8rdd3FWGaMCiIoJ4NhzEgkGIRoymXfKZhw yqDufEJRg4HhIaBNO8K5BC0oKMUJODP2ORuvPy8kYYGmJZJsRgIvGKWRBM9RJKMbYAIymZHaBPRsVGUC UE2CBDhsOOH2LojuauXwoUGwAGxbPW8WNGQcjhRbFiuhQFWIXJa+Th2MAL7aq7UeANxtACPgCX9ctj5F FWxYQvYuW6Y2nXKlP5T1BXddWj2XSEAoDEQfUnErGF WEUVsgLO3DIF8qfjW5PZ1BxLFrQWHwWHSvdBMnSHs3Q51xlAVfQWvbKD3VYPD+Dillon+Wh5SGOHmBQZoZY JuTmDzPNUIWqXjW8DuT5LAw4AkQ1RgOL62oDkuyaIsFWcsSF1QWJ2yTEOfQMFNXQ0IaEFqyQ6ywrEbSu JeJUIOIsVdF81otHUdOKIiGKT9PRUaJk7YTUBaE0Wq xyWbnGsscrBqHSJhYJGQIH7JNBprmnYcmLJodBbrXY88zDidLR3AEq6UEaNgES3qcx7HrHBhNe7NXMAl RA1HKBMiLMOrFMQqEHH7ZNZuYnNnAImoPUTrHLXdRQU7FLHyEQIgGY0GCwWcMCBvXjN5GOpwGGZpDSRr yu0NZONyDQKkBYQ0GJMjTVUlFYKjXAvpCPHeQPGiES P1IUFrARXnSG7LHdVqLVJqSAW1OMfzSKIoAXBczz8UKNJmYCYiXiicAsJkDHTwDWMoOKmpRWIdRND3ND zxIYPrQHUpTI2QVmCdJBErTENsOSJiOIHjINBomm6ZKGWpTSWhMAP5RFXvNZVqYPTvZCrtCNBoCGO3LQ T2KCLzXKEfFZ7QYrCaKZQjZEW4SWTvOBRmMJUfve4V XTOuERSmScQgZQEzQLYnUNQpFSjdXZGzWZA6Vns9OWVkLTRsQN7KBhLjZJAaJGI8BVXoVQEjHNJewk7D TLFxDXRhBVZeZAJhXRBiFBYzHMgbUADgSTV3DvF9BOPgRSStMN9MVhRsBHBxUMg6NUCgEILnBIUcqs7R XDHzVIZaEUL2HDFoZKUoYKPqPAquMCRgWTFlFvNvBV DiHFMyUU3TGhOvCFXtTpSwQNEuXBYpTURrfc0VIKPbKFIwPJA6JVHaTGRfPAKbRPobLAPoQNTbNBP1ME WnYGJlAX2IEuWbSKBxZvU8MCqwFNZfAKVuzr2ZDUMvCZDaVnG8USFhLKIfHBVqREzlKDOiKLEnUUS2EH BxTVPdBJ7NAvRxANZdIuPkHZBvILBvONVqex0NHEHw TSUfWPd1JLZeBANgFSOmOThjVIUdCXU7XBH9LETpUFWvRZ4FPrMpNNAmBpN8QHDlPUNtBZOtdz4YnWYu fVjypl9CHZwBOf9ZyBetSROtPKdwEj3eiPCoPBTjTHZWBx0PwtGcWYHgQUSLAFrcDGEkQNEvNmVuANfq GjVrN7B4YAs1IBSzXei7ShYiWfa9A5V7YpX2ETYaTF Z5ENHsUAYiRSPwNQfvQVVhLeV7IeNrJTKbXzX+OZ3dFUn+Ep4Po0BryrI3gwGuNXvfXLRlCB5QPTZCA8 YNCg== ID Date Data Source [id number] 03/13/2021 02:22:43 PM EDT [facility] Name Value Range Interpretation Code Description Data Stephanie rce(s) Supporting Document(s) Nursing Note [facility] PQHIFh6tKoGKTwWj67/FPEhrRWLfn3NtQKdeRMa8YBbfQNXzU7PmWDX7vH1kURS2DZsQZaYiUqJsICLs lbm [file] ID Date Data Source [id number] 03/13/2021 11:15:10 AM EDT [facility] Name Value Range Interpretation Code Description Data Stephanie rce(s) Supporting Document(s) ED Triage Notes [facility] TWDBGy4iHoIPDoUq00/QDOoyHFPkw8RaJDnxOXb8URspSSHjW6DeBKJ0nA9jMRC3VMlGNrWpWaSbELPt lbm [file] AgICAgICAgICAgICAgICAgICAgICAgICAgICAgICAgICAgICAgICAgICAgICAgICAgICAgICAgICAgIC UvIOVyMNYcWVMoESIrSKXpHCMeHIVwZDGoDMGoEQOdREMpNZ6ETFHaXMNgYZCiYXEyQZDoQGUuWGCzIZ AgICAgICAgICAgICAgICAgICAgICAgICAgICAgICAg UXZyYPKjHZCsNMHmQVVgTVFoZXJcYOJzJXTaXDAlNIPjBUFzZXFlKZVaFDAkVI8VIVKzXWVqNPPwQUEs ICAgICAgICAgICAgICAgICAgICAgICAgICAgICAgICAgICAgICAgICAgICAgICAgICAgICAgICAgICAg IUPjDBEgLFQlGDIuXOTnBAAxJFUuTQAtJNJgIG0BFS AgICAgICAgICAgICAgICAgICAgICAgICAgICAgICAgICAgICAgICAgICAgICAgICAgICAgICAgICAgIC GsBHTeWFQrZVZsAZLiCTJnNLElSROfINLwBFRfAQXwKNGvGVBjAW5FYGHmNHCiETZrENHtZCRjFJKvKN AgICAgICAgICAgICAgICAgICAgICAgICAgICAgICAg NSByMWElBLDmFMXaUFCwGRRmQWTbJOHkYYUwBZDfTDJkPXPzUDSyQYLoZJCmWOYlFN8KJCBaLATgPVQc ICAgICAgICAgICAgICAgICAgICAgICAgICAgICAgICAgICAgICAgICAgICAgICAgICAgICAgICAgICAg ICAgICAgICAgICAgICAgICAgICAgICAgICAgICAgIA 0KICAgICAgICAgICAgICAgICAgICAgICAgICAgICAgICAgICAgICAgICAgICAgICAgICAgICAgICAgIC ScNHReBPHyFHKbETJxQSNcMDJjDOBxRXVmXJEkCPFcEOYdZUUbCOZcYH5TFEMnWQQyLXMqEFAgJWLeVN AgICAgICAgICAgICAgICAgICAgICAgICAgICAgICAg EQSoGYBnYYFhAOPvQZZzPPBlYKRvNUSkGBFrORNuPIEmFQUbUQEbJXUyNPGmSCPsUNBoFY5YADEhXJXp ICAgICAgICAgICAgICAgICAgICAgICAgICAgICAgICAgICAgICAgICAgICAgICAgICAgICAgICAgICAg ICAgICAgICAgICAgICAgICAgICAgICAgICAgICAgIC XbJF4DPKOgTTQyUGHfDAXfWOTcEHZwOMCpSJEzVSTiRPXoXQSlXGBkJXSoPRLmOGKzJKLhCEBzJAKtLA OsXGJdGBPxHJJmBYRiVZPiTHRuLSAaYQAyKTSzAMKgFWEbZXKzYNBmKKMpHM1MIJ93aSNdi4K8JINsUC 0ndyc/Af8MHRgjaeZywPYtMU8HTyAwIY8btl6LNvBk LA3ukb0HOVlDAkMgC3M3eUBhQPOmUEESVlLbM57yDFwqYf96RArxNVShMzDoWGc6Yg6LCpSsT2fpCNBb FeM9EYYxElEhSDoaSR5Ym3XdeVEuDXu+Sb9QYA1tw3NuCWgdWcQiIQ5vvi0QPQgIWpIwA9OwnpO8YBJp KLBtDq6LYSIwRGFyrXJeGiCgBEPGKbLiH0JtcD22NX ENCj4+PGwenoRwZxeQInVyOGVbk8XkDXs7FD4BCEAoOCh3oQXeGHXlTXBqTCrkME5fwCHkRSX7PZJcoJ VqLTRjfkO8gY43iLWeXASAWKE1KWjsFb2yWCCmTNYiBkFvIFXKJO5QRMAyNZEnbHMtLAJiFIOMXY2CNN qvPAD2QgqucaEkuVLxEQzaIC6AWYPosaRqDgMwNJKN DQo+Vw1QDM6ik6FuZAqeHLRyFJ3wgw2UCUdAVfVvK3O8wOTiN6I6BRysKy1LOUFaVMKgHfUkBPIBNHrh ZO0FJB4zfkJ1GB3KdPTwNDSrEMYyjZYhBQt9Q72idNFwDApmMM7GYTD+Dillon+Pk1XKTPxGVTlZDJjAqXt LTPLPtWiE7OyY9TZt4LtR9UmTM03nCfufcLtGYaeHP 5MPL7mRHKmRFQUOD4OgDPvhC9vphFwHiMaSEHNRvWmM04ecNYiGHWvYKPaAXAvEv0XAUMjP4BhpxKuvS lecrQnVRHyNSYFGW4SUCjmycFvdEGdrKqqLP53sNxfUH4PGp0TJpViJO7odt8OqNYuTp6SRIFtZW4ZMA DdSBFkJUYnLAL1NATmQvVjGLjqASTtKOFlADX5UBCf XODbZZ7XTiSbMWHtDUa7YplqICXhRYJfpu4MLTXjWPHpUHXrYMAkQDZgUOJbKLxiAQNaVUTuRAE9XPLk NPCdEU4OQmXaVJLiOWYpMWmqIHWzVAMwns9SMBIaKMGkLTGyRyPuBXEkUKPlFOfhMWAdTCZpGVZlNEUd SAWaJC8GLaHiKQMrTES1QqNkLEElCTSbxe2BTUOvNF WiDps6DcTaAPToTLRgNHiwUFKeYJRjGAD2XSVmQHRpBW6FVpHkRJGgWURlDJDgOYRiOYKcbs5DRZUoBY KvOPW5KOUbNABeVQSfEEabBRHyHRS0KfC5AZBwRFFvCC1JFhXkJJRtVMS9PANdHEEgKUCgcc9TVOAuVK UdAgA5HNHyGLAgTBPpRXqzPDWmOUR0Nno0VOBvGBPy QU6UFjYcJCVkFDz0FWTbGHWtXSZisy8ZLBCuKPCxIGS1GrSsDKOiSYHnWKjoVIXkRRK4YszzFVMtIDIu TF1NJeRtEDMhMPt6CIWrXLUwZPYfim8IHLFjKASpQVY2ZMIdYEObQQYgYMeeADMlHVSvLxk5DXUhOILs JP2UDrDkOAMyQnO2JpZiMKIeJURteo3UCZDvRDIbEC ogXNUeAJZaPVLuIOd5sjTbrCWpBNf4EN5EM0IpqhDmIlFDWr0Hw645KTL5OEWdSr5YD9wxZp9xHWYwMB NUJy3PGYz3VxxtQRZzYZKtZcVvHOUvV6J9EmH0JUQ2VXGrOCH6SfG+EZb1TMZ5DqLqWUMqOqXjAGKsCX pxRVg4OpytSQEkLOV7Qw1nZEBNTb4+JQhhkPLrwYqlISYBPgEbZAP0ZUpaBUZDSo3I ID Date Data Source [id number] 03/11/2021 08:16:00 PM EDT [facility] Name Value Range Interpretation Code Description Data Stephanie rce(s) Supporting Document(s) SARS coronavirus 2 RNA [Presence] in Res piratory specimen by CORDELL with probe detection NEGATIVE [facility] This lab was ordered by [facility] a nd reported by [facility]. ID Date Data Source [id number] 03/05/2021 09:30:00 PM EDT [facility] Name Value Range Interpretation Code Description Data Stephanie rce(s) Supporting Document(s) Respiratory specimen severe acute respir atory syndrome coronavirus 2 (SARS-CoV-2) RNA Negative (qualifier value) [facility] and reported by . ID Date Data Source [id number] 03/05/2021 10:26:00 PM EDT [facility] First test? [facility]NOW[facility]mployed in [facility]? UNKNOWNSymptomatic per CDC? UNKNOWNIf yes date of onset? 03/05/21Hospitalized? UNKNOWNICU? UNKNOWNResident in congregated care? ex longterm, AR[facility] YES? UNKNOWN Name Value Range Interpretation Code Description Data Stephanie rce(s) Supporting Document(s) SARS-CoV-2 RNA Negative Normal (applies to non-numeric r esults) [facility] Negative results should be treated as pr [...] Certificate of Accreditation. Factsheets for healthcare providers: https://www.fda.gov/media/841225/download Factsheets for patients: https://www.fda.gov/media/629133/download The ID NOW Instrument is a rapid molecular in vitro diagnostic test utilizing an isothermal nucleic acid amplification technology intended for the qualitative detection of nucleic acid from the SARS-CoV-2 viral RNA. THIS IS A STATE REPORTABLE COMMUNICABLE DISEASE. Manual entry verified by Aysha Andrade 03/05/215 ID Date Data Source [id number] 03/05/2021 10:15:00 PM EDT [facility] Name Value Range Interpretation Code Description Data Stephanie rce(s) Supporting Document(s) Troponin I 0.000-0.056 Normal (applies to non-numeric resu lts) [facility] ID Date Data Source [id number] 03/05/2021 10:15:00 PM EDT [facility] Name Value Range Interpretation Code Description Data Stephanie rce(s) Supporting Document(s) Acetaminophen 10.0-30.0 Below low normal [facility] ID Date Data Source [id number] 03/05/2021 10:15:00 PM EDT [facility] Name Value Range Interpretation Code Description Data Stephanie rce(s) Supporting Document(s) Magnesium 1.8-2.4 Normal (applies to non-numeric resul ts) [facility] ID Date Data Source [id number] 03/05/2021 10:15:00 PM EDT [facility] Name Value Range Interpretation Code Description Data Stephanie rce(s) Supporting Document(s) Sodium 142 mmol/L 136-145 Normal (applies to non-numeric resul ts) [facility] Potassium 3.5-5.1 Normal (applies to non-numeric resul ts) [facility] Chloride 107 mmol/L 98-107 Normal (applies to non-numeric resul ts) [facility] Carbon Dioxide CO2 21-32 Normal (applies to non-numer ic results) [facility] Anion Gap 5.0-16.0 Normal (applies to non-numeric resul ts) [facility] BUN 17 mg/dL 7-18 Normal (applies to non-numeric results) [facility] Creatinine,Serum 0.7-1.2 Normal (applies to non-numeric results) [facility] GFR >60 Normal (applies to non-numeric results) [facility] Glucose Level 93 mg/dL 60-99 Normal (applies to non-numeric re sults) [facility] Reference range is only applicable when patient is fasting Note the following drug interference: Sulfasalazine Sulfapyridine Can see falsely depressed Can see falsely elevated result with up to 17% results with up to 11% decrease in measurement increase in measurement Recommend patients be collected for this test prior to administration of either drug. Calcium 8.5-10.1 Normal (applies to non-numeric resul ts) [facility] Bilirubin,Total 0.1-1.9 Normal (applies to non-numeric results) [facility] SGOT(AST) 21 U/L 15-37 Normal (applies to non-numeric resul ts) [facility] Note the following drug interference: Sulfasalazine Sulfapyridine Can see falsely depressed Can see falsely elevated result with up to 10% results with up to 10% decrease in measurement increase in measurement Recommend patients be collected for this test prior to administration of either drug. SGPT(ALT) 43 U/L 12-78 Normal (applies to non-numeric resul ts) [facility] Note the following drug interference: Sulfasalazine Sulfapyridine Can see falsely depressed Can see falsely elevated result with up to 29% results with up to 10% decrease in measurement increase in measurement Recommend patients be collected for this test prior to administration of either drug. Alkaline Phosphatase 113 U/L 38-126 Normal (applies to non-num deena results) [facility] can increase Alkaline Phosp le vels up to 2 times the normal adult value. Normal values for children and adolescents are 2 to 3 times the normal adult value. Total Protein 6.0-8.2 Normal (applies to non-numeric re sults) [facility] Albumin Level 3.4-5.0 Normal (applies to non-numeric re sults) [facility] ID Date Data Source [id number] 03/05/2021 10:15:00 PM EDT [facility] Name Value Range Interpretation Code Description Data Stephanie rce(s) Supporting Document(s) Salicylate 2.8-20.0 Below low normal [facility] ID Date Data Source [id number] 03/05/2021 10:14:00 PM EDT [facility] Name Value Range Interpretation Code Description Data Stephanie rce(s) Supporting Document(s) Ethanol Less than 10.0 Normal (applies to non-numeric r esults) [facility] ID Date Data Source [id number] 03/05/2021 09:36:00 PM EDT [facility] Name Value Range Interpretation Code Description Data Stephanie rce(s) Supporting Document(s) White Blood Count 3.5-10.5 Above high normal [facility] Red Blood Count 3.90-5.00 Normal (applies to non-numeric results) [facility] Hemoglobin 12.0-15.5 Normal (applies to non-numeric resul ts) [facility] Hematocrit 34.9-44.5 Normal (applies to non-numeric resul ts) [facility] Mean Corpuscular Volume 81.2-95.1 Normal (applies to non- numeric results) [facility] Mean Corpuscular Hgb 25.6-32.2 Normal (applies to non-num deena results) [facility] Mean Corpuscular Hgb Conc 32.0-36.0 Normal (applies to no n-numeric results) [facility] Red Cell Distribution Width 11.9-15.5 Normal (appli es to non-numeric results) [facility] Platelet Count 258 x10 3/uL 150-450 Normal (applies to non-numeric results) [facility] Mean Platelet Volume 9.4-12.4 Normal (applies to non-num deena results) [facility] Neutrophils% (Auto) 31.0-71.0 Normal (applies to non-nume frank results) [facility] Lymphocytes% (Auto) 20.0-55.0 Normal (applies to non-nume frank results) [facility] Monocytes% (Auto) 4.0-12.0 Normal (applies to non-numeri c results) [facility] Eosinophils% (Auto) 1.0-8.0 Below low normal [facility] Basophils% (Auto) 0.0-2.0 Normal (applies to non-numeri c results) [facility] Immature Granulocytes% (Auto) 0.0-2.0 Normal (alexander lies to non-numeric results) [facility] Neutrophils# (Auto) 1.50-6.20 Above high normal [facility] Lymphocytes# (Auto) 1.20-4.00 Normal (applies to non-nume frank results) [facility] Monocytes# (Auto) 0.00-0.90 Normal (applies to non-numeri c results) [facility] Eosinophils# (Auto) 0.00-0.50 Normal (applies to non-nume frank results) [facility] Basophils# (Auto) 0.00-0.20 Normal (applies to non-numeri c results) [facility] Immature Granulocytes# (Auto) 0.00-7.00 No rmal (applies to non-numeric results) [facility] ID Date Data Source [id number] 03/05/2021 10:00:00 PM [facility] Collected By: Nurse Initials: ayleen wyatt Collected: 1999 Collected By: Nurse Initials: ayleen wyatt Collected: 1999 Collected By: Nurse Initials: ayleen wyatt Collected: 1999 Name Value Range Interpretation Code Description Data [facility] rce(s) Supporting Document(s) RBC,Urine None Seen [facility] WBC,Urine None Seen [facility] Squamous Cells,Urine None Seen [facility] Amorphous Sediment,Urine None Seen [facility] Bacteria,Urine None Seen [facility] ital ID Date Data Source [id number] 03/05/2021 10:00:00 PM [facility] Collected By: Nurse Initials: ayleen wyatt Collected: 1999 Collected By: Nurse Initials: ayleen wyatt Collected: 1999 Collected By: Nurse Initials: ayleen wyatt Collected: 1999 Name Value Range Interpretation Code Description Data Stephanie rce(s) Supporting Document(s) Color,Urine Colorl-Dk Y Normal (applies to non-numeric res ults) [facility] Clarity,Urine Clear Normal (applies to non-numeric re sults) [facility] Specific [place],Urine 1.005-1.030 [facility] pH,Urine 5.0-8.0 Normal (applies to non-numeric resul ts) [facility] Protein,Urine Negative [facility] Glucose,Urine Negative Normal (applies to non-numeric re sults) [facility] Ketones,Urine Negative Normal (applies to non-numeric re sults) [facility] Blood,Urine Negative Normal (applies to non-numeric resu lts) [facility] Bilirubin,Urine Negative Normal (applies to non-numeric results) [facility] Urobilinogen,Urine 0.2-1.0 Normal (applies to non-numer ic results) [facility] Leukocyte Esterase,Urine Negative Normal (applies to non -numeric results) [facility] Nitrite,Urine Negative Normal (applies to non-numeric re sults) [facility] ID Date Data Source [id number] 03/05/2021 10:00:00 PM EDT [facility] Collected By: Nurse Initials: ayleen wyatt Collected: 1999 Collected By: Nurse Initials: ayleen wyatt Collected: 1999 Collected By: Nurse Initials: ayleen wyatt Collected: 1999 Name Value Range Interpretation Code Description Data Stephanie rce(s) Supporting Document(s) HCG,Ur Negative Normal (applies to non-numeric results) [facility] ID Date Data Source [id number] 03/05/2021 08:25:00 PM EDT [facility] Name Value Range Interpretation Code Description Data Stephanie rce(s) Supporting Document(s) UDS Benzodiazepines Screen Negative Normal (applies to n on-numeric results) [facility] UDS Cocaine Screen Negative Normal (applies to non-numer ic results) [facility] UDS Ampetamine Screen Negative Normal (applies to non-nu meric results) [facility] UDS Cannabinoids Screen Negative Normal (applies to non- numeric results) [facility] UDS Opiates Screen Negative Normal (applies to non-numer ic results) [facility] UDS Barbiturates Screen Negative Normal (applies to non- numeric results) [facility] Threshold Levels Benzodiazepine 200 ng/mL Cocaine 300 ng/mL Amphetamines 1000 ng/mL Cannabinoids (THC) 50 ng/mL Opiates 300 ng/mL Barbiturates 200 ng/mL All positive findings are presumptive and unconfirmed. Confirmation of positive results are performed only at request of provider. Unconfirmed results must not be used for non-medical purposes (i.e. preemployment and legal purposes) ID Date Data Source [id number] 03/04/2021 03:33:00 PM EDT [facility] Exam Number: [id number] Reported By: - JEREMIAH PEOPLES MD Signed By: JEREMIAH PEOPLES MD Name Value Range Interpretation Code Description Data Stephanie rce(s) Supporting Document(s) ID Date Data Source [id number] 03/03/2021 08:53:00 PM EDT [facility] Name Value Range Interpretation Code Description Data Stephanie rce(s) Supporting Document(s) [id number] [employer] XPRESS SARS-CO V-2 REALTIME PCR ASSAY HAS EMERGENCY USE AUTHORIZATION (EUA) FROM THE FDA. [facility] This [facility] was ordered by [facility] and reported by [facility]. ID Date Data Source [id number] 03/03/2021 02:50:00 AM EDT [facility] Name Value Range Interpretation Code Description Data Stephanie rce(s) Supporting Document(s) Respiratory specimen severe acute respir atory syndrome coronavirus 2 (SARS-CoV-2) RNA Negative (qualifier value) [facility] This lab was ordered by [facility] [place] and reported by . ID Date Data Source [id number] 03/03/2021 03:11:00 AM EDT [facility] First test? [facility] re? UNKNOWNSymptomatic per CDC? UNKNOWNHospitalized? UNKNOWNICU? UNKNOWNResident in congregated care? ex longterm, [facility] UNKNOWN? UNKNOWN Name Value Range Interpretation Code Description Data Stephanie rce(s) Supporting Document(s) SARS-CoV-2 RNA Negative Normal (applies to non-numeric r esults) [facility] Negative results should be treated as pr [...] Certificate of Accreditation. Factsheets for healthcare providers: https://www.fda.gov/media/178005/download Factsheets for patients: https://www.fda.gov/media/966559/download The ID NOW Instrument is a rapid molecular in vitro diagnostic test utilizing an isothermal nucleic acid amplification technology intended for the qualitative detection of nucleic acid from the SARS-CoV-2 viral RNA. THIS IS A STATE REPORTABLE COMMUNICABLE DISEASE. Manual entry verified by Marion Thompson 03/03/21310 ID Date Data Source [id number] 03/03/2021 02:26:00 AM EDT [facility] Name Value Range Interpretation Code Description Data Stephanie rce(s) Supporting Document(s) UDS Benzodiazepines Screen Negative Normal (applies to n on-numeric results) [facility] UDS Cocaine Screen Negative Normal (applies to non-numer ic results) [facility] [facility] UDS Ampetamine Screen Negative Normal (applies to non-nu meric results) [facility] UDS Cannabinoids Screen Negative Normal (applies to non- numeric results) [facility] UDS Opiates Screen Negative Normal (applies to non-numer ic results) [facility] UDS Barbiturates Screen Negative Normal (applies to non- numeric results) [facility] Threshold Levels Benzodiazepine 200 ng/mL Cocaine 300 ng/mL Amphetamines 1000 ng/mL Cannabinoids (THC) 50 ng/mL Opiates 300 ng/mL Barbiturates 200 ng/mL All positive findings are presumptive and unconfirmed. Confirmation of positive results are performed only at request of provider. Unconfirmed results must not be used for non-medical purposes (i.e. preemployment and legal purposes) ID Date Data Source [id number] 03/03/2021 02:21:00 AM EDT [facility] Collected By: Nurse Initials: NH Time Collected: 157 Collected By: Nurse Initials: NH Time Collected: 157 Name Value Range Interpretation Code Description Data Stephanie rce(s) Supporting Document(s) Color,Urine Colorl-Dk Y Normal (applies to non-numeric res ults) [facility] Clarity,Urine Clear Normal (applies to non-numeric re sults) [facility] Specific [place],Urine 1.005-1.030 [facility] pH,Urine 5.0-8.0 Normal (applies to non-numeric resul ts) [facility] Protein,Urine Negative Normal (applies to non-numeric re sults) [facility] Glucose,Urine Negative Normal (applies to non-numeric re sults) [facility] Ketones,Urine Negative Normal (applies to non-numeric re sults) [facility] Blood,Urine Negative Normal (applies to non-numeric resu lts) [facility] Bilirubin,Urine Negative Normal (applies to non-numeric results) [facility] Urobilinogen,Urine 0.2-1.0 Normal (applies to non-numer ic results) [facility] Leukocyte Esterase,Urine Negative Normal (applies to non -numeric results) [facility] Nitrite,Urine Negative Normal (applies to non-numeric re sults) [facility] ID Date Data Source [id number] 03/03/2021 02:21:00 AM EDT [facility] Collected By: Nurse Initials: NH Time Collected: 157 Collected By: Nurse Initials: NH Time Collected: 157 Name Value Range Interpretation Code Description Data Stephanie rce(s) Supporting Document(s) HCG,Ur Negative Normal (applies to non-numeric results) [facility] ID Date Data Source [id number] 03/03/2021 02:54:00 AM EDT [facility] Name Value Range Interpretation Code Description Data Stephanie rce(s) Supporting Document(s) D-Dimer,Quant 0.19-0.50 Normal (applies to non-numeric re sults) [facility] The negative predictive value for DVT or [...] on anticoagulant therapy. ID Date Data Source [id number] 03/03/2021 01:55:00 AM [facility] Name Value Range Interpretation Code Description Data Stephanie rce(s) Supporting Document(s) Ethanol Less than 10.0 Normal (applies to non-numeric r esults) [facility] ID Date Data Source [id number] [facility] Name Value Range Interpretation Code Description Data Stephanie rce(s) Supporting Document(s) Acetaminophen 10.0-30.0 Below low normal [facility] ID Date Data Source [id number] 03/03/2021 01:55:00 AM [facility] Name Value Range Interpretation Code Description Data Stephanie rce(s) Supporting Document(s) Sodium 143 mmol/L 136-145 Normal (applies to non-numeric resul ts) [facility] Potassium 3.5-5.1 Normal (applies to non-numeric resul ts) [facility] Chloride 107 mmol/L 98-107 Normal (applies to non-numeric resul ts) [facility] Carbon Dioxide CO2 21-32 Normal (applies to non-numer ic results) [facility] Anion Gap 5.0-16.0 Normal (applies to non-numeric resul ts) [facility] BUN 20 mg/dL 7-18 Above high normal [facility] Creatinine,Serum 0.7-1.2 Normal (applies to non-numeric results) [facility] GFR >60 Normal (applies to non-numeric results) [facility] Glucose Level 101 mg/dL 60-99 Above high normal [facility] Reference range is only applicable when patient is fasting Note the following drug interference: Sulfasalazine Sulfapyridine Can see falsely depressed Can see falsely elevated result with up to 17% results with up to 11% decrease in measurement increase in measurement Recommend patients be collected for this test prior to administration of either drug. Calcium 8.5-10.1 Normal (applies to non-numeric resul ts) [facility] Bilirubin,Total 0.1-1.9 Normal (applies to non-numeric results) [facility] SGOT(AST) 22 U/L 15-37 Normal (applies to non-numeric resul ts) [facility] Note the following drug interference: Sulfasalazine Sulfapyridine Can see falsely depressed Can see falsely elevated result with up to 10% results with up to 10% decrease in measurement increase in measurement Recommend patients be collected for this test prior to administration of either drug. SGPT(ALT) 44 U/L 12-78 Normal (applies to non-numeric resul ts) [facility] Note the following drug interference: Sulfasalazine Sulfapyridine Can see falsely depressed Can see falsely elevated result with up to 29% results with up to 10% decrease in measurement increase in measurement Recommend patients be collected for this test prior to administration of either drug. Alkaline Phosphatase 116 U/L 38-126 Normal (applies to non-num deena results) [facility] can increase Alkaline Phosp le vels up to 2 times the normal adult value. Normal values for children and adolescents are 2 to 3 times the normal adult value. Total Protein 6.0-8.2 Normal (applies to non-numeric re sults) [facility] Albumin Level 3.4-5.0 Normal (applies to non-numeric re sults) [facility] ID Date Data Source [id number] 03/03/2021 01:55:00 AM EDT [facility] Name Value Range Interpretation Code Description Data Stephanie rce(s) Supporting Document(s) Salicylate 2.8-20.0 Below low normal [facility] ID Date Data Source [id number] 03/03/2021 01:55:00 AM EDT [facility] Name Value Range Interpretation Code Description Data Stephanie rce(s) Supporting Document(s) Magnesium 1.8-2.4 Normal (applies to non-numeric resul ts) [facility] ID Date Data Source [id number] 03/03/2021 01:55:00 AM EDT [facility] Name Value Range Interpretation Code Description Data Stephanie rce(s) Supporting Document(s) Troponin I 0.000-0.056 Normal (applies to non-numeric resu lts) [facility] ID Date Data Source [id number] 03/03/2021 01:19:00 AM EDT [facility] Name Value Range Interpretation Code Description Data Stephanie rce(s) Supporting Document(s) White Blood Count 3.5-10.5 Above high normal [facility] Red Blood Count 3.90-5.00 Normal (applies to non-numeric results) [facility] Hemoglobin 12.0-15.5 Normal (applies to non-numeric resul ts) [facility] Hematocrit 34.9-44.5 Normal (applies to non-numeric resul ts) [facility] Mean Corpuscular Volume 81.2-95.1 Normal (applies to non- numeric results) [facility] Mean Corpuscular Hgb 25.6-32.2 Normal (applies to non-num deena results) [facility] Mean Corpuscular Hgb Conc 32.0-36.0 Normal (applies to no n-numeric results) [facility] Red Cell Distribution Width 11.9-15.5 Normal (appli es to non-numeric results) [facility] Platelet Count 274 x10 3/uL 150-450 Normal (applies to non-numeric results) [facility] Mean Platelet Volume 9.4-12.4 Below low normal [facility] Neutrophils% (Auto) 31.0-71.0 Normal (applies to non-nume frank results) [facility] Lymphocytes% (Auto) 20.0-55.0 Normal (applies to non-nume frank results) [facility] Monocytes% (Auto) 4.0-12.0 Normal (applies to non-numeri c results) [facility] Eosinophils% (Auto) 1.0-8.0 Below low normal [facility] Basophils% (Auto) 0.0-2.0 Normal (applies to non-numeri c results) [facility] Immature Granulocytes% (Auto) 0.0-2.0 Normal (alexander lies to non-numeric results) [facility] Neutrophils# (Auto) 1.50-6.20 Above high normal [facility] Lymphocytes# (Auto) 1.20-4.00 Normal (applies to non-nume frank results) [facility] Monocytes# (Auto) 0.00-0.90 Normal (applies to non-numeri c results) [facility] Eosinophils# (Auto) 0.00-0.50 Normal (applies to non-nume frank results) [facility] Basophils# (Auto) 0.00-0.20 Normal (applies to non-numeri c results) [facility] Immature Granulocytes# (Auto) 0.00-7.00 No rmal (applies to non-numeric results) [facility] ID Date Data Source [id number] 03/02/2021 11:08:00 AM EDT [address] HEALTH CONSULTPATIENT NAME: YARELI HATCH MR#: [id number] PHYSICIAN:AUTHOR: Colleen SMITH,Bogdan DATE: #: ERPATIENT : 00HistoryHistory of Presenting IllnessPatient is 20-year-old female, currently single, lives at [facility], pastpsych history of borderline personality disorder, [...] And she wanted to be discharged backto [facility]. However upon asking how she is going [...] rce(s) Supporting Document(s) ID Date Data Source [id number] 03/02/2021 04:06:00 AM EDT [facility] Name Value Range Interpretation Code Description Data Stephanie rce(s) Supporting Document(s) SALICYLATE < 1.7 mg/dL 0.0-20.0 [facility] ID Date Data Source [id number] 03/02/2021 04:06:00 AM EDT [facility] Name Value Range Interpretation Code Description Data Stephanie rce(s) Supporting Document(s) ACETAMINOPHEN < 2.0 ug/mL 0-30 [facility] al ID Date Data Source [id number] 03/02/2021 04:06:00 AM EDT [facility] Name Value Range Interpretation Code Description Data Stephanie rce(s) Supporting Document(s) ETOH NONE DETECTED [facility] NONE DETECTED ID Date Data Source [id number] 03/02/2021 04:06:00 AM EDT [facility] Name Value Range Interpretation Code Description Data Stephanie rce(s) Supporting Document(s) GLU 120 mg/dL 70-110 [facility] Patients taking Sulfasalazine may have f alsely depressedGlucose levels. Patients taking Sulfapyridine may havefalsely elevated Glucose levels. Patients should be drawnfor Glucose before the initial administration of eitherdrug. BUN 16 mg/dL 7-23 [facility] CRE 0.685 mg/dL 0.500-1.300 [facility] GFR > 60 mL/min [facility] CHLORIDE 111 mmol/L 99-110 [facility] NA 141 mmol/L 136-147 [facility] POTASSIUM 3.6 mmol/L 3.5-5.1 [facility] TCO2 18 mmol/L 20-33 [facility] ANION GAP 15.6 10.0-20.0 [facility] CA 8.5 mg/dL 8.3-10.7 [facility] ALKALINE PHOS 118 U/L 45-117 [facility] TP 7.5 g/dL 6.0-7.8 [facility] ALB 3.7 g/dL 3.5-5.0 [facility] ESRD Dialysis patient Albumin reference range: 2.9-4.4 g/dL GL 3.8 g/dL 2.3-3.5 [facility] A/G 1.0 1.0-2.5 [facility] T. BILIRUBIN 0.2 mg/dL 0.1-1.1 [facility] The Dimension Mason Total Bilirubin is n ot recommended forpatients undergoing treatment with eltrombopag (Promacta)due to the potential for falsely elevated results. ALTI 43 U/L 6-54 [facility] Patients taking Sulfasalazine and/or Sul fapyridine may havefalsely depressed ALT levels. Patients should be drawn forALT before the initial administration of either drug. AST 21 U/L 6-38 [facility] Patients taking Sulfasalazine and/or Sul fapyridine may havefalsely depressed AST levels. Patients should be drawn forAST before the initial administration of either drug. ID Date Data Source [id number] 03/02/2021 03:12:00 AM EDT [facility] Name Value Range Interpretation Code Description Data Stephanie rce(s) Supporting Document(s) WBC 9.90 x10E3/uL 4.0-10.5 [facility] RBC 4.15 x10E6/uL 4.20-5.40 [facility] Hemoglobin 12.4 g/dL 12.0-16.0 [facility] Hematocrit 37.0 % 37.0-47.0 [facility] MCV 89.2 fL 81.0-99.0 [facility] MCH 29.9 pg 27.0-31.0 [facility] MCHC 33.5 g/dL 32.7-35.6 [facility] RDW 12.4 % 11.5-14.0 [facility] Platelet count 243 x10E3/uL 150-450 N [facility] ital MPV 9.9 fl 6.9-9.5 [facility] Neutrophils 61.6 % 34-64 [facility] Lymphocytes 29.1 % 25-45 [facility] Monocytes 7.2 % 1.7-10.6 [facility] Eosinophils 1.3 % 0.4-7.0 [facility] Basophils 0.3 % 0.1-2.0 [facility] Imm. Gran. 0.5 % 0.1-2.0 [facility] Abs. Neutro. 6.10 x10E3/uL 1.2-7.6 [facility] Abs. Lymph. 2.88 x10E3/uL 1.0-3.5 [facility] al Abs. Metcalfe. 0.71 x10E3/uL 0.1-1.0 N [facility] l Abs. Eosin. 0.13 x10E3/uL 0.1-0.7 N [facility] al Abs. Baso. 0.03 x10E3/uL 0.0-0.1 N [facility] l Abs. Imm. Gran. 0.05 x10E3/uL 0.0-0.1 [facility] spital ANRBC% 0 % 0 [facility] ID Date Data Source [id number] 03/02/2021 03:28:00 AM EDT [facility] Name Value Range Interpretation Code Description Data Stephanie rce(s) Supporting Document(s) PCP VISTA NEG NEGATIVE [facility] MINIMUM LEVEL OF DETECTION IS 25 ng/ml BENZODIAZEPINES NEG NEGATIVE [facility] MINIMUM LEVEL OF DETECTION IS 200 ng/ml COCAINE VISTA NEG NEGATIVE [facility] MINIMUM LEVEL OF DETECTION IS 300 ng/ml AMPHETAMINES NEG NEGATIVE [facility] MINIMUM LEVEL OF DETECTION IS 1000 ng/ml BARBITURATES NEG NEGATIVE [facility] CUTOFF CONCENTRATION IS 200 ng/ml CANNABINOIDS NEG NEGATIVE [facility] CUTOFF CONCENTRATION IS 50 ng/ml METHADONE VISTA NEG NEGATIVE [facility] al MINIMUM LEVEL OF DETECTION IS 300 ng/ml OPIATE VISTA NEG NEGATIVE [facility] MINIMUM DETECTION LEVEL IS 300 ng/ml ID Date Data Source [id number] 03/02/2021 03:15:00 AM EDT [facility] Name Value Range Interpretation Code Description Data Stephanie rce(s) Supporting Document(s) HCG QUAL URINE Negative Negative [facility] ID Date Data Source [id number] 03/02/2021 03:15:00 AM EDT [facility] Name Value Range Interpretation Code Description Data Stephanie rce(s) Supporting Document(s) URINE COLOR Yellow [facility] UAPR Cloudy [facility] UGLU Negative NEGATIVE [facility] URINE BILIRUBIN Negative NEGATIVE [facility] al UKET Trace NEGATIVE [facility] USG 1.028 1.010-1.025 [facility] UBLO Negative NEGATIVE [facility] UpH 5.0 5.0-8.0 [facility] UPRO Negative Negative [facility] UUB 1.0 mg/dL 0.2-1.0 [facility] UNIT Negative Negative [facility] ULEU Negative Negative [facility] ID Date Data Source [id number] 03/02/2021 11:27:00 AM EDT [facility] Physician DocumentationClaxlexy-Cristina Hinkle edical CenterName: Yareli DuvallAge: 20 yrsSex: FemaleDOB: 2000MRN: [id number] Date: 03/02/2021Time: 02:30Account#: [id number] 5APrmonalisa MD: NONE, - Per PatientED Physician Nils ArguetaDiszach Summary:03/02/21 11:12Discharge OrderedLocation: Home Self Care afProblem: an ongoing problem afSymptoms: are unchanged afCondition: Stable afDiagnosis- Adjustment disorder, unspecified afFollowup: af- With: Private Physician- When: 1 week- Reason: Recheck today's complaintsDischarge Instructions:- ADJUSTMENT DISORDER af- Discharge Summary Sheet [id number]:- Medication Reconciliation af- Medication Reconciliation Form - 2nd Copy afHPI:02/2202:50 This 20 yrs old White Female presents to ER via Police with jk9rgtqjeiewx of Psych Problem.02:50 Associated signs and symptoms: Pertinent negatives: abdominal pain, we0vlgez pain, fever, headache, nausea, shortness of breath, [...] denies any other problems or any other complaints..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 ibuprofen 400 [...] Temp 97.7; Pulse Ox 96% ; Weight jn7463.33 kg; Height 5 ft. 7 in. (170.18 cm);11:27 BP 124 / 76; Pulse 88; Resp 20; Temp 98; Pulse Ox 98% on R/A; fbg02:35 Body Mass Index 36.02 (104.33 kg, 170.18 cm) jw5MDM:02:40 Patient medically screened. th406:41 Data reviewed: vital signs, nurses notes, lab test result(s). ED tr6navqjw: Patient remained stable in the ER. Patient [...] Order name: Medically Cleared for Eval by-Psychosocial, [place] th4(.PSA); Complete Time: 07:27Dispensed Medications:No medications were administeredSignatures:Dispatcher [employer] Anshul Loving MD MD afHowland, Todd, MD MD py6GovdvFortunato humphrey RN RN qf1PpcxfRatna mccallum RN RN kk3 Name Value Range Interpretation Code Description Data Stephanie rce(s) Supporting Document(s) ID Date Data Source [id number] 03/02/2021 11:27:00 AM EDT [facility]Cl[facility]Sy[facility] terName: Yareli AdamelAge: 20 yrsSex: FemaleDOB: 2000MRN: [id number] Date: 03/02/2021Time: 02:30Account#: [id number] MD: NONE, - Per PatientDiagnosis: Adjustment disorder, unspecifiedPresentation:02/2202:32 Presenting complaint: Patient brought in by [employer] officer Noel Huerta for [address] evaluation for suicidal thoughts. International TravelFever No. Coronavirus Screening: Have you been diagnosed withCOVID-19 in the past 30 days? no Are you currently on quarant[facility]? no Flu-like symptoms reported in the last 14 days: no.Have you had close contact with confirmed or suspected COVID-19 case?no Do you live in a setting where a large of amount of people live,such as longterm, family care, intermediate, etc? no. Have you traveledto a location with widespread or ongoing COVID-19 community spread [facility]? no Have you traveled internationally or hadcontact with someone that has traveled and has been ill in the past 3weeks? no Have you received the COVID vaccine? Yes. CommunicableDisease Screen: Negative for fever>/= 100 degrees Fahrenheit.Communicable disease screen is negative. (-) rash or unusual skinlesion (-) travel/contact with traveler (-) respiratory symptoms.Communication Speaks Estonian? Yes, is preferred language.02:32 Acuity: Triage 2 jw502:32 Method Of Arrival: Police jw502:34 Acuity Assignment: Triage 2 vf5Jrilzs Assessment:02:34 Sepsis Screening: (1)Signs/symptoms infection Sepsis is not ov6qljiialfw. Pain: Denies pain. PSS-3 Now I'm going [...] noted. : No deficits noted. 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 ibuprofen 400 [...] threats or abuse. Denies injuries from another. kr2Jituajvvyht screening: No deficits noted. Offer of HIV [...] in no apparent distress at this time. tc9Rndagua is asleep.06:12 Reassessment: Patient appears in no apparent distress at this time. ag4Nsupvgistuye:10:54 SAFE Act Report Not Completed. Intervention: Observation Level 3. [address] health consult is initiated at 10:10. Referral Information:Evaluation referral is generated by the patient himself / herself.The patient was referred for evaluation because Suicidal Ideation.10:57 Subjective: The patients chief complaint is SI. Patient is a 20 y/o qr9ggtpl female who was discharged from the inpatient [...] / Agency: [facility] Walk-In appointment in [place] on Wednesday.. LivingEnvironment:. Patient presents to Emergency [...] of patients status at 11:05, Mental Health GLASSIE made awareof pt status at 11:05. Disposition: The patient has a safedestination which is Patient is being discharged back to [facility]. DSM-V DX [place] I diagnosis: Adjustment D/O w mixedemotion, conduct. The patient is not a flight attendant inflight services or militarydependent. [place] Suicide Severity Rating Scale: Suicidal IdeationRating 0; Intensity of Ideations Rating 0; Suicidal Behavior Rating 0.Psych:02:37 Subjective: Patient's mood is sad, Delusions are denied, ha7Nvyntwgravrzes are denied Having thoughts of suicide. Denies [...] Temp 97.7; Pulse Ox 96% ; Weight di5550.33 kg; Height 5 ft. 7 in. (170.18 [...] armband on for positive identification. Placed in on0bsvm. Bed in low position. Side rails up [...] Disposition: Discharged to home ambulatory. fbg11:27 Condition: lhamtvixa70:27 Discharge instructions given to patient, Instructed on dischargeinstructions, follow up and referral plans. medication usage.11:27 Discharge Assessment: Patient awake, alert and oriented x 3. Nocognitive and/or functional deficits noted. Patient verbalizedunderstanding of disposition instructions. Patient verbalizedunderstanding of disposition instructions. Patient has no functionaldeficits.11:27 Patient left the ED. fbgSignatures:Vincenzo Luis RN RN fbgFedoroAnshul casillas MD MD afStickles, Robert, PSA PSA cq5SqlzfovNils Argueta MD MD lw5QvtqhFortunato humphrey RN RN [id number] mccallum, JOSE LUIS RN ck6Bsdzzikbeid: (The following items were deleted from the chart)11:06 10:54 Referral Information: Evaluation referral is generated by the [id number] himself / herself. rs2 Name Value Range Interpretation Code Description Data Stephanie rce(s) Supporting Document(s) ID Date Data Source [id number] 03/01/2021 11:36:00 AM EDT [address] HEALTH CONSULTPATIENT NAME: YARELI HATCH MR#: [id number] PHYSICIAN:AUTHOR: Kary Gray NP DATE: RM#: ERPATIENT : 00HistoryHistory of Presenting IllnessPatient is 20-year-old female, currently [facility], past psychhistory of mood disorder, borderline [...] stated that she has a friend from [place] that she talksand that friend treats her [...] rce(s) Supporting Document(s) ID Date Data Source [id number] 03/01/2021 08:18:00 AM EDT [facility] Name Value Range Interpretation Code Description Data Stephanie rce(s) Supporting Document(s) LCOVID-19, CORDELL NEGATIVE [facility] This lab was ordered by [facility] and reported by [facility]. ID Date Data Source [id number] 03/01/2021 08:55:00 AM EDT [facility] Name Value Range Interpretation Code Description Data Stephanie rce(s) Supporting Document(s) COVID-19, CORDELL NEGATIVE NEGATIVE [facility] Methodology: Isothermal Nucleic Acid Amp lification for [...] Emergency Use Authorization. ID Date Data Source [id number] 02/28/2021 10:15:00 PM EDT [facility] Name Value Range Interpretation Code Description Data Stephanie rce(s) Supporting Document(s) PCP VISTA NEG NEGATIVE [facility] MINIMUM LEVEL OF DETECTION IS 25 ng/ml BENZODIAZEPINES [facility]G [facility]GAT[facility] MINIMUM LEVEL OF DETECTION IS 200 ng/ml COCAINE VISTA NEG NEGATIVE [facility] MINIMUM LEVEL OF DETECTION IS 300 ng/ml AMPHETAMINES NEG NEGATIVE [facility] MINIMUM LEVEL OF DETECTION IS 1000 ng/ml BARBITURATES NEG NEGATIVE [facility] CUTOFF CONCENTRATION IS 200 ng/ml CANNABINOIDS NEG NEGATIVE [facility] CUTOFF CONCENTRATION IS 50 ng/ml METHADONE VISTA NEG NEGATIVE [facility] al MINIMUM LEVEL OF DETECTION IS 300 ng/ml OPIATE VISTA NEG NEGATIVE [facility] MINIMUM DETECTION LEVEL IS 300 ng/ml ID Date Data Source [id number] 02/28/2021 09:59:00 PM EDT [facility] Name Value Range Interpretation Code Description Data Stephanie rce(s) Supporting Document(s) URINE COLOR Yellow [facility] UAPR Clear [facility] UGLU Negative NEGATIVE [facility] URINE BILIRUBIN Negative NEGATIVE [facility] UKET Trace NEGATIVE [facility] USG 1.028 1.010-1.025 [facility] UBLO Negative NEGATIVE [facility] UpH 6.0 5.0-8.0 [facility] UPRO Negative Negative [facility] UUB 1.0 mg/dL 0.2-1.0 [facility] UNIT Negative Negative [facility] ULEU Negative Negative [facility] ID Date Data Source [id number] 02/28/2021 09:59:00 PM [facility]T [facility] Name Value Range Interpretation Code Description Data Stephanie rce(s) Supporting Document(s) HCG QUAL [facility]INE Negative [facility] ID Date Data Source [id number] 02/28/2021 10:15:00 PM EDT [facility] Name Value Range Interpretation Code Description Data Stephanie rce(s) Supporting Document(s) SALICYLATE < 1.7 mg/dL 0.0-20.0 [facility] ID Date Data Source [id number] 02/28/2021 10:15:00 PM EDT [facility] Name Value Range Interpretation Code Description Data Stephanie rce(s) Supporting Document(s) ACETAMINOPHEN < 2.0 ug/mL 0-30 [facility] ID Date Data Source [id number] 02/28/2021 10:15:00 PM EDT [facility] Name Value Range Interpretation Code Description Data Stephanie rce(s) Supporting Document(s) ETOH NONE DETECTED [facility] NONE DETECTED ID Date Data Source [id number] 02/28/2021 10:15:00 PM EDT [facility] Name Value Range Interpretation Code Description Data Stephanie rce(s) Supporting Document(s) GLU 98 mg/dL 70-110 [facility] Patients taking Sulfasalazine may have f alsely depressedGlucose levels. Patients taking Sulfapyridine may havefalsely elevated Glucose levels. Patients should be drawnfor Glucose before the initial administration of eitherdrug. BUN 14 mg/dL 7-23 [facility] CRE 0.645 mg/dL 0.500-1.300 [facility] GFR > 60 mL/min [facility] CHLORIDE 109 mmol/L 99-110 [facility] NA 140 mmol/L 136-147 [facility] POTASSIUM 3.6 mmol/L 3.5-5.1 [facility] TCO2 22 mmol/L 20-33 [facility] ANION GAP 12.6 10.0-20.0 [facility] CA 8.6 mg/dL 8.3-10.7 [facility] ALKALINE PHOS 114 U/L 45-117 [facility] TP 7.3 g/dL 6.0-7.8 [facility] ALB 3.6 g/dL 3.5-5.0 [facility] ESRD Dialysis patient Albumin reference range: 2.9-4.4 g/dL GL 3.7 g/dL 2.3-3.5 [facility] A/G 1.0 1.0-2.5 [facility] T. BILIRUBIN 0.3 mg/dL 0.1-1.1 [facility] The Dimension Mason Total Bilirubin is n ot recommended forpatients undergoing treatment with eltrombopag (Promacta)due to the potential for falsely elevated results. ALTI 44 U/L 6-54 [facility] Patients taking Sulfasalazine and/or Sul fapyridine may havefalsely depressed ALT levels. Patients should be drawn forALT before the initial administration of either drug. AST 18 U/L 6-38 [facility] Patients taking Sulfasalazine and/or Sul fapyridine may havefalsely depressed AST levels. Patients should be drawn forAST before the initial administration of either drug. ID Date Data Source [id number] 02/28/2021 10:03:00 PM EDT [facility] Name Value Range Interpretation Code Description Data Stephanie rce(s) Supporting Document(s) WBC 10.31 x10E3/uL 4.0-10.5 N [facility] l RBC 4.19 x10E6/uL 4.20-5.40 [facility] Hemoglobin 12.3 g/dL 12.0-16.0 [facility] Hematocrit 37.1 % 37.0-47.0 [facility] MCV 88.5 fL 81.0-99.0 [facility] MCH 29.4 pg 27.0-31.0 [facility] MCHC 33.2 g/dL 32.7-35.6 [facility] RDW 12.2 % 11.5-14.0 [facility] Platelet count 274 x10E3/uL 150-450 N [facility] ital MPV 9.7 fl 6.9-9.5 [facility] Neutrophils 60.8 % 34-64 [facility] Lymphocytes 29.1 % 25-45 [facility] Monocytes 8.0 % 1.7-10.6 [facility] Eosinophils 1.4 % 0.4-7.0 [facility] Basophils 0.2 % 0.1-2.0 [facility] Imm. Gran. 0.5 % 0.1-2.0 [facility] Abs. Neutro. 6.28 x10E3/uL 1.2-7.6 [facility] Abs. Lymph. 3.00 x10E3/uL 1.0-3.5 [facility] Abs. Metcalfe. 0.82 x10E3/uL 0.1-1.0 [facility] Abs. Eosin. 0.14 x10E3/uL 0.1-0.7 [facility] Abs. Baso. 0.02 x10E3/uL 0.0-0.1 [facility] Abs. Imm. Gran. 0.05 x10E3/uL 0.0-0.1 [facility] ANRBC% 0 % 0 [facility] ID Date Data Source [id number] 03/01/2021 12:39:00 PM EDT [facility] Physician DocumentationClaxton-Cristina Hinkle edical CenterName: Yareli DuvallAge: 20 yrsSex: FemaleDOB: 2000MRN: [id number] Date: 02/28/2021Time: 21:08Account#: [id number] 3Private MD: NONE, - Per PatientED Physician Nils ArguetaDisposition Summary:03/01/21 11:57Discharge OrderedLocation: Home Self Care afProblem: an ongoing problem afSymptoms: are unchanged afCondition: Stable afDiagnosis- Bipolar disorder, unspecified afFollowup: af- With: Private Physician- When: 1 week- Reason: Recheck today's complaintsDischarge Instructions:- BIPOLAR DISORDER af- Discharge Summary Sheet fb23Yahkx:- Medication Reconciliation af- Medication Reconciliation Form - 2nd Copy afHPI:02/2021:26 This 20 yrs old White Female presents to ER via Police with tr6daykmpimhg of Psych Problem.21:26 Associated signs and symptoms: Pertinent negatives: abdominal pain, xk3rgzja pain, fever, headache, nausea, shortness of breath, [...] Temp 97.8; Pulse Ox 97% ; Weight mo2998.95 kg; Height 5 ft. 6 in. (167.64 cm);22:59 BP 120 / 64; Pulse 75; Resp 16; Pulse Ox 97% ; jw508/2:37 ml408/2020:15 Body Mass Index 38.41 (107.95 kg, 167.64 cm) jw512:37 refused vitals ml4MDM:02/2021:11 Patient medically screened. th408/2106:53 Data reviewed: vital signs, nurses notes, lab test result(s). ED rb1inptak: Patient remained stable in the ER. Patient [...] name: Medically Cleared for Eval by- Psychosocial, [place] th4(.PSA); Complete Time: 04::17 Order name: EKG [...] mg [acetaminophen 325 mg tablet (2 tabs)] kc2Nvclm: PO;09:45 Drug: Propranolol 10 mg [propranolol 10 mg tablet (1 tabs)] Route: PO;fbg09:46 Drug: sertraline 150 mg [sertraline 50 mg tablet (3 tabs)] Route: PO; fbg09:46 Drug: Topiramate 75 mg [topiramate 25 mg tablet (3 tabs)] Route: PO; fbgSignatures:Dispatcher [employer] Vincenzo Acosta RN RN fbgFedoroAnshul casillas MD MD afHowland, Todd, MD MD pc8BqmpdFortunato humphrey, RN RN hv9Oaesogcb, Geno, RN RN sc3 Name Value Range Interpretation Code Description Data Stephanie rce(s) Supporting Document(s) ID Date Data Source [id number] 03/01/2021 12:39:00 PM EDT [facility] Nurse's NotesClaxton-Winding Cypress Medical Tootie terName: Yareli DuvallAge: 20 yrsSex: FemaleDOB: 2000MRN: [id number] Date: 02/28/2021Time: 21:08Account#: [id number] 3Private MD: NONE, - Per PatientDiagnosis: Bipolar [...] of amount of people live, such as longterm, familycare, intermediate, etc? no. Have you traveled to a location with widespreador ongoing COVID-19 community spread or outside of [facility]? no Haveyou traveled internationally or had contact with someone that hastraveled and has been ill in the past 3 weeks? no Have you receivedthe COVID vaccine? Yes. Communicable Disease Screen: Negative forfever>/= 100 degrees Fahrenheit. Communicable disease screen isnegative. (-) rash or unusual skin lesion (-) travel/contact withtraveler (-) respiratory symptoms. Communication Speaks Estonian? Yes,is preferred language.21:09 Acuity: Triage 2 jw521:09 Method Of Arrival: Police jw521:11 Acuity Assignment: Triage 2 hs0Oimwmw Assessment:21:14 General: Appears in no apparent distress, Behavior is cooperative. vw3Glotci Screening: (1)Signs/symptoms infection Sepsis is notsuspected. Pain: [...] threats or abuse. Denies injuries from another. cr0Abuumiemzft screening: No deficits noted. Offer of HIV testing:patient was previously offered screening. Fall Risk None identified.Assessment:22:58 Reassessment: Patient appears in no apparent distress at this time. jw508/2:36 Reassessment: No changes from previously documented assessment. fh5Xjtxttvrenaf:02/2022:21 SAFE Act Report Not Completed. Intervention: Observation [...] Pt states that she was inpatient at [facility] from02/21/21-02/25/21. Pt states that she is [facility] to [facility] and she has anappointment next week [...] guns. Pt statesthat she has court in [place] 18. Pt does not presentwith delusional thoughts. Delusions are denied, Hallucinations aredenied. Patient's mood is depressed, Having thoughts of suicide. Planfor suicide is jumping into trffic. Patient reports history ofanxiety, Bipolar Disorder, Depression, self - mutilation, suicideattempt: many Mental Health Admissions: 02/21-02/25/2021 [facility] Outpatient Mental Health Services: Psychiatrist / Agency:[facility]. Living Environment: Family /Home Support: poor [...] informed of patient's status at 11:53, ED JLln75khjcvgvm of patients status at 11:53. Disposition: Medically clearedfor disposition by Dr Argueta. Psychiatric Consult is performed byphone with Dr Almaguer The patient has a safe destination which is Ptwill be discharged home per Dr. Almaguer. Pt can contract for safety anddenies SI/HI. Pt will follow up with [facility]. Pt provided contactinformation for PSA and [employer]. Pt will come to the ED if problemscontinue or worsen. DSM-V DX [place] I diagnosis: Bipolar D/O, depressedAxis II diagnosis: Deferred [place] III diagnosis: None. [place] IVdiagnosis: poor impulse control. The patient is not a service memberor dependent. [place] Suicide Severity Rating Scale:Suicidal Ideation Rating 0; Intensity of Ideations Rating 0; SuicidalBehavior Rating 0.Psych:02/2021:18 Subjective: Patient's mood is irritable, Delusions are denied, sw2Kvljmircwoiiuk are denied Having thoughts of suicide. Plan [...] Temp 97.8; Pulse Ox 97% ; Weight zz5552.95 kg; Height 5 ft. 6 in. (167.64 [...] mg [acetaminophen 325 mg tablet (2 tabs)] xm9Taucc: PO;09:45 Drug: Propranolol 10 mg [propranolol 10 [...] no functional deficits.12:39 Patient left the ED. he6Ruqvcngloo:Vincenzo Luis RN RN fbgBrownFortunato ESA ESA jabFedorowicz, Arthur, MD MD afHowland, Todd, MD MD vv3MpqukFortunato Mark RN RN kf0UydxIna Jack Nicole nhLynch, McKenzie, RN RN ux8TdxayvcnGeno santana RN RN sc3 Name Value Range Interpretation Code Description Data Stephanie rce(s) Supporting Document(s) ID Date Data Source [id number] 02/26/2021 08:59:13 AM EDT [facility] Name Value Range Interpretation Code Description Data Stephanie rce(s) Supporting Document(s) Discharge Summary [facility] EHZBBb3rQaUUYxXz00/AOGwkPVVeg6WqSXowMYz1ZXefUHFwP4HpSXX5mY3uFZI6GJrXTaVnRhJbVAH9 lbm [file] ICAgICAgICAgICAgICAgICAgICAgICAgICAgICAgIC AgICAgICAgICAgICAgICAgICAgICAgICAgICAgICAgDQogICAgICAgICAgICAgICAgICAgICAgICAgIC AgICAgICAgICAgICAgICAgICAgICAgICAgICAgICAgICAgICAgICAgICAgICAgICAgICAgICAgICAgIC AgICAgICAgICAgICAgDQogICAgICAgICAgICAgICAg ICAgICAgICAgICAgICAgICAgICAgICAgICAgICAgICAgICAgICAgICAgICAgICAgICAgICAgICAgICAg ICAgICAgICAgICAgICAgICAgICAgICAgDQogICAgICAgICAgICAgICAgICAgICAgICAgICAgICAgICAg ICAgICAgICAgICAgICAgICAgICAgICAgICAgICAgIC AgICAgICAgICAgICAgICAgICAgICAgICAgICAgICAgICAgDQogICAgICAgICAgICAgICAgICAgICAgIC AgICAgICAgICAgICAgICAgICAgICAgICAgICAgICAgICAgICAgICAgICAgICAgICAgICAgICAgICAgIC AgICAgICAgICAgICAgICAgDQogICAgICAgICAgICAg ICAgICAgICAgICAgICAgICAgICAgICAgICAgICAgICAgICAgICAgICAgICAgICAgICAgICAgICAgICAg ICAgICAgICAgICAgICAgICAgICAgICAgICAgDQogICAgICAgICAgICAgICAgICAgICAgICAgICAgICAg ICAgICAgICAgICAgICAgICAgICAgICAgICAgICAgIC AgICAgICAgICAgICAgICAgICAgICAgICAgICAgICAgICAgICAgDQogICAgICAgICAgICAgICAgICAgIC AgICAgICAgICAgICAgICAgICAgICAgICAgICAgICAgICAgICAgICAgICAgICAgICAgICAgICAgICAgIC AgICAgICAgICAgICAgICAgICAgDQogICAgICAgICAg ICAgICAgICAgICAgICAgICAgICAgICAgICAgICAgICAgICAgICAgICAgICAgICAgICAgICAgICAgICAg ICAgICAgICAgICAgICAgICAgICAgICAgICAgICAgDQogICAgICAgICAgICAgICAgICAgICAgICAgICAg ICAgICAgICAgICAgICAgICAgICAgICAgICAgICAgIC SdZSRjOGNjPCWaTZYmJDRxKKYlDMStARUcRPTxAZVwQYGuNXEuIQRsNVu0H6rmJIMiAVCdAA0wBSr0Gf 8+NUyXQcPwDXW1mbIorJ0QSN0dl6JvMKhhIMLcx6ShEDt7LQ0LMPZnUElfVC1BEKpiio1OTUFrNYMqxY AVo0aaIoZpNUS7BQIjWmlnKV5NJHNeM9eslhRxRTNy WLEWXRhaLGDFYVqvSVLBYOWmAJXtFyLzNaRiWHEjVHEuYODHBVI2KGOeUrGeJFBdIJDqBbNcOLWRVCVa OCVsEsEcDMndGR6Rr8IbwSHjJY9SNl5GCvNdVT7kry9OMNSeJHSaRxiEOsp4PUnvNV2GoYDngHG1PCAw TQEBUnFnH9nzb0QmKFMoXMSLTVxwAA9Ak8KizQVnCS o+Ku8YPK3ur5VyLQr4THKhRA6fyk0HTOwPAoHvI1PfoHcvESAtl4GuWEAoVMFKuB9xRHW4ZLV7FZtbjT QoeeGdFCXMRIVqpYdevqqvTRGpOJVmZM8sMt6pFEBpSRFjFpG4FTWUIK9IWNKjXXLmaCBsVDWuXKTTXS 6WTQkyGKH3BGKcdqLgjSGuMGupQD3KOLMqolCnWKDv MCBSDQo+Ca4LMR8kd1RhQAy0NnFhXE0cev9OBZiPRpCqY2X7mYGaT5L5KPeeZv2RVLUlSMHsFMBfNMMH ARznXZ3OTE3oioG2UP8LpEPxWRJwAPMydAZrYBx1S73tvCIoEGkdEB5PHDX+Dillon+Yo2XIRBmRZJqGFUe ZkFyDLLXApDsM7FhQ2JUr6CfE0ObFS77uSkiqkKrFC imNN7OIT1zHNGmPURIQX8YzOPjzK6afsT1NXAiHZBZRpNpV96ppYTqGYNpZKAdQKEnAh4TARGrG5Ojdd ZzcRsdkvUpEHBeLIWMNB8QBBhyriYxhCXzdPxeTR56iOurAP1LFc7BTxCkLM4hoy8SaJDiZq5TPZJ0Rz 1WLVUxAXSzTMYpQEP5HXRhCiKxLEptXJHdYSGeKGP9 IUUsGFZwKL4PExBkASTqZtUzMzkaTOKxZWPukt5JNERmQDT2Qxm2UuWrARJpYDWjDRqrZLHoLAMhIXF3 XAJzNXVzTB5EZlNzREMzNHT1KupfPKXpUVDiqe7DVZYjSYHtXYy0OCEaLYUnCLLzSZozMEWuMSJ3Jyq6 RGXmMQXvLL0CNwXgBBUsPOx6LGNuXJZpNNFque4SMH CzVVDdYsb9VHAkKILzPPNfGYnmEBLqAWWaFXWvMOBrGGVaWZ1PDqMjHBUxEJO3EEjiTWTiWNFrir8XMT QtPRLdLIafEjBwQPDwTFGaQRvuYQKfCHGyLWN5BDObPVApLJ9GIcYiMJTkIeTaYPLeNXXpQDHjks3GMR KoIXWzAcymKOJaGTDeHOOdUCspUWDdGYF0FJT3MOYv XNApYY3KLjQdBKBlRea5MYAnUULsBCCjju6MRXKyQGDgNxf5TXHuNSCfPMKrATrvDWBjMSKiAYzyLIWj MZQwTI7ERvVpNKSzZxD6CKGfUPFkNBNjcm9FCCKuZLLzIGReKYOcGHWaVQHgVDmnCXEzGIH4FKQ1PMZk PLGsFM5YWcWsNRNdMsL1VPJyXOKrWBWtor7HNJYgSC EoWkYmKGOwQDRuNSFtTNlqAJCeMKE1UPqpTAAwNPImVD1XJgAqWPAcHiq2UvkaJRPnLDDgqn2HBHVmQU GeHov1ZHIaRITmQUByEBugRQBpPMP2ZNYxJPCcTHJtAK6JYtEvVVDrQabePZJmCUHuTDLdjv2SMVMkEV AzOTMwMCAwMDAwMCBuDQowMDAwMDQwMjYwIDAwMDAw KQ0IMdGpWDZoRYL1MOxgVTQxLRSovz4EJTJzAHG5ZIB6VUSnPXEpFRIwVMuvEKJqCMJaMbWiLJNzYWDz HE0PPpZuBVTgVHL9LIAeZGNdZTKzsl7ACUOdSKM2PRc1GIEeORDmTYZtKAruABKzRANbIUQmUMUtTAOn JF6EQhHuZMDmEFLiVgDhNQGnJUBfvs6KKPUvOSQ9Jy N3NzJdZHXsDMJbFIexNNDoAQW1McAvZDCiFBCuEZ6EMmBmBOVpFWMrOeQtYDAyZLLcmx4XVAFqVCB4EI S4EZMxPRFsTJSuWJckUSOmLQU3ILI2LJNrYOBaBR5JCfTnETRtLHG5IHEbHEHnVSXidl6YXQDpLNW0EE NlFNYtZUFmMKLoHMgbGVPpYXBcHAQrYQYqXCYmXK1E XlRfYGMhGeCfLFycUHQuKVLfju1RTKMeFVP2PIE5ZMAuRZHmNEYuOFxlTRBcJOBxWGZ9CBKbOZElDU5K MqAkNCRrXdP0XVdrYHFyJYAagw2EDZBrLWU5BRp2FQAfQXLfCVYsKJktEIYzTHXfOFG8MFNbCJAaLE8O TzTbBYMyAgG7UuWqJQYtUADkod6BENJhYHR9UOZlKx VrZQGpLABmANimKKWoHRA4BZf2TRSnGDQrRX2OBjBsBNUyDaXnJRJuXOAzSLZcyf9QaGJjoAxidn7VGL jFGs2DoGfrUYT0MZwxKy1ltOA3WrWrDTOPLc9XaxHsOCMaXTMHIYqhYDQxXKB0ZlLjMhWeJPUiHdM1R4 SfMXsgPmLcWNZvPNDlJzXfAxP1Wtp2H5PpJxS3CHYp OVQwLDVdYINfJnU3EOYtFXOtKZI+DQ4rLMz+Fa2Iu6QbuoU1opSkAMr6KAF8Bl0SUTWQW8DNFo== ID Date Data Source [id number] 02/23/2021 04:37:10 PM EDT [facility] Name Value Range Interpretation Code Description Data Stephanie e(s) Supporting Document(s) History and Physical [facility] RZCFXz1lOqJQCsTo57/NYLhhQPXpj0YsRAwlJDd6SDxxWNMeH4JkNWG0yL0qHUB7MDlHHuQxXeZqGIU6 lbm [file] JO6Dv+uj9phLsOMqL9UEqkvJMSzeHQO+4ODkCev/[place] [file] AgICAgICAgICAgICAgICAgICAgICAgICAgICAgICAgICAgICAgICAgICAgICAgICAgICAgICAgICAgIC AgICAgICAgICAgICAgICAgICAgICAgICAgICAgICAg DQogICAgICAgICAgICAgICAgICAgICAgICAgICAgICAgICAgICAgICAgICAgICAgICAgICAgICAgICAg ICAgICAgICAgICAgICAgICAgICAgICAgICAgICAgICAgICAgICAgICAgDQogICAgICAgICAgICAgICAg ICAgICAgICAgICAgICAgICAgICAgICAgICAgICAgIC AgICAgICAgICAgICAgICAgICAgICAgICAgICAgICAgICAgICAgICAgICAgICAgICAgICAgDQogICAgIC AgICAgICAgICAgICAgICAgICAgICAgICAgICAgICAgICAgICAgICAgICAgICAgICAgICAgICAgICAgIC AgICAgICAgICAgICAgICAgICAgICAgICAgICAgICAg ICAgDQogICAgICAgICAgICAgICAgICAgICAgICAgICAgICAgICAgICAgICAgICAgICAgICAgICAgICAg ICAgICAgICAgICAgICAgICAgICAgICAgICAgICAgICAgICAgICAgICAgICAgDQogICAgICAgICAgICAg ICAgICAgICAgICAgICAgICAgICAgICAgICAgICAgIC AgICAgICAgICAgICAgICAgICAgICAgICAgICAgICAgICAgICAgICAgICAgICAgICAgICAgICAgDQogIC AgICAgICAgICAgICAgICAgICAgICAgICAgICAgICAgICAgICAgICAgICAgICAgICAgICAgICAgICAgIC AgICAgICAgICAgICAgICAgICAgICAgICAgICAgICAg ICAgICAgDQogICAgICAgICAgICAgICAgICAgICAgICAgICAgICAgICAgICAgICAgICAgICAgICAgICAg ICAgICAgICAgICAgICAgICAgICAgICAgICAgICAgICAgICAgICAgICAgICAgICAgDQogICAgICAgICAg ICAgICAgICAgICAgICAgICAgICAgICAgICAgICAgIC AgICAgICAgICAgICAgICAgICAgICAgICAgICAgICAgICAgICAgICAgICAgICAgICAgICAgICAgICAgDQ ogICAgICAgICAgICAgICAgICAgICAgICAgICAgICAgICAgICAgICAgICAgICAgICAgICAgICAgICAgIC AgICAgICAgICAgICAgICAgICAgICAgICAgICAgICAg EOUpPBZiVEVzJEe3M8baPMTgDPMvOM9eKQu3Pe1+ZMeEEfEoBWG0xhSprF9JLL1gp8UjONdhADKlw5Kg RZu4NU3OCYTpVEnlQR3XBQdydg0OIZZeAZLeqWCNb8mtDoPdDST0KZHwDsczHX3NOAJiA1zmozPcAJKs TGINTBvrCSGKMHitNPBKHDKpZCUmMhPwFJlwRT8Mt2 TouQH5IYw+Yu1YOF8iu5UoPLriXNNiXF2ors7ZPWaFElDfY3PkfxU7NIK3RXDsRz8OAJBeYHMckOHmRO CmYAKPVpKrW9OjjF45PDYULx0+KLfrrvHjDgmOEoD2CPBim1AfRJh5EJ8GZTKlBYk2zIUyLSJSYAD7US NoTK9mVPKVwXSzEOGiEJXPFYN8TMtdKOQvDeCzORSj YJzsHxVZXFiSHcUsS0Mwx5XpGsA2TSBqDeGfXYdvXCXuZoC9IV51hTgsYY0RMCXsXPPyYN10UOD5ITLp Zs1FKd9ROuQuAP1lxj6EStIiOPQuTkqJNhx1LFecJX7BuCYdD7FxfDVoe6pQIoOpJ4WPTLYvFTBhMz9D PIJiYiNeFTDhDVgdOL8eDEGzJIKYhQamazM9SN0NBL 9jotCzXL3HDdEuNx9pUn8HFxIeH8LkN5KdDEDvBDQKAFusFO3DUNidZM4sGT5Mi3TNvAMbfK2ikw0YBR ByDRRmXzqjti1UZiquA9F6zNcyLDUxGhMlCYHFDAwiCM0NMRGtLNU2BZFvQzTiAEMVVuWsB36vPK2RQ5 Xxk00xAgH5PCXlYmYyVEomTC72zXhzxcUgpYVhrApz QD1YJt5+UBzpcoZkCeeZHstoSPTDNoRpJdgXQpXbFZFpWNJwQKYoZrF3EoVjXu9IZDSaGZYrSGAnDlJb XPDgHYZaWGxtKWUvKBDcIUMrTJCvMSNaTB6ZZlVaCWWgBhL7HsnnOAJcQBZagh5QKOFfEKFqRSI1VoDt FUHwPMChOSvtHXYyYHAbAOexJAInPVBaRV5DHqRzIW ElHJSfHAdrHCRkZGAtnf3AGOHbCHOkCUd8CXOkCQNxZXVdPOngDMAaNDR7MNcuELZgPNHiZF7APbPnOR SyOGy3QdKnZXCsUPIgff4HHFMzGPJlKSh8VFPpFVMxGGQkCVvpHURvGCYqTUK5GIVbINEmDI1GPiHfGS RxBGTdHzGsKNJaWABgob0RAZZuCKBrEoO9JOItLFJc RPGrLLqpEVQsZLRdFobhCLPxAHHiKA6DQrTeLAPtDTS6NdNoGJCrRBJrne3HAVGmUGQlGqLgNrPzILGy ARIiLQlfYBUpMLJeUmW9MSHuJAKgTB7RRfEoZCOiLRC3TNLmLJPwPEQtbn8JEGCfEQLgEGw3ZzYkZVLu HZRzNWtmHHPbPUH1NMzaVRQuFLNlBS5XKaPlPIDiQM XhYNYyFHTuVIJbkv9HIDAoOPTuRiWmXRBaBNGvCCRsPBapGXDtPWQ7GPI0XOObVXTkZA2YDwHqSZVdWo stGzIqGNFcWZVlnq5WFOKaUMGkFzWaVKLiMFEqOHQhDBxrPUAcNYO8DFKgAVQnVAMvYG8HIfZvBOMgEp tkTJCaHZJgNGBwpu3OLATwBTJkJHM4BtAxPVFrKXWn WShrWEVfJYO4AmYvNJRmQNMfPA5KQnKxJIHzFug4DRJtNQCqDWAxuc6VEIRsVGQxCWg7LpBwTEArPLYh JRkxRBWuTLStHOa1VMErAIQkLC3VMuAmPSRvBvC2KjzhBJSiXTAmjb1UUZRfNPZdMMu2CVQaLXVpKIQw BEkqNYMuEGLcVJY2SHZoCGDfEI7XBaOsNGSsViSmIF FaBMFeRLYgly8YgZPkcNermw0HNZqCJi0AmNggHOW0OEnzJf7bpBYeJaNiDSAINy4JjkEtKPJfIJCVMU olDOUjRZClRvO5McC4CXF0KGVjIsB2AOB4JcYmTXXzF0J4KAz8MqH8WaEyGRvnZLHbUzLnCxO7Axg0Ah zwCEO6IlY0DlWbTyW+BH3cIEy+Bk9Sd2OaghP9czEgWEebXtSnNw7IQBCSJ9PJAp== ID Date Data Source [id number] 02/22/2021 04:47:09 PM EDT [facility] Name Value Range Interpretation Code Description Data Stephanie rce(s) Supporting Document(s) History and Physical [facility] PWFBYu3rAoBKJgXf79/ZMVcvGHEnd2MuXFsqQQk4BMdcTYZwQ4LsFOY4cN6bFZY7GEgGOfCbNlHcUPK7 lbm [file] ICAgICAgICAgICAgICAgICAgICAgICAgICAgICAgICAgICAgICAgICAgICAgICAgICAgICAgICAgICAg QKKdRMYrUUDtDOEwWG5MFTIyXONgJDVwVWLfLCIbZOIvMMPfYQVmGCLrBEPgCRVzTCSpPHVsFFTpQFNq ICAgICAgICAgICAgICAgICAgICAgICAgICAgICAgIC JjBURdQRGxRIBrPHOgQESwYLDvSKEeEH0IANJeSURcKWNoSSLuUGCwDESrTITgZJNlFSAzXTKxYCKjME AgICAgICAgICAgICAgICAgICAgICAgICAgICAgICAgICAgICAgICAgICAgICAgICAgICAgICAgICAgIC DkMDUcOD4RZYQfKEOdUFHaWZCzLNCsELEfMKXqTQBv ICAgICAgICAgICAgICAgICAgICAgICAgICAgICAgICAgICAgICAgICAgICAgICAgICAgICAgICAgICAg MRLgNUBeVNBkQJKoLYYwUB5VRBZiWJPbWSBxXDErXOTxNDZoAOOkDDHbKYLgHORrFFIpUGHdMMSvWJTn ICAgICAgICAgICAgICAgICAgICAgICAgICAgICAgIC HnDFIcSBPwEERdADWfOKBtZOJtQTHkBACrPT7GXXYiJOTvMIMvVPGfUSReBDVeWRTjNRFqHEYnWEAaMB AgICAgICAgICAgICAgICAgICAgICAgICAgICAgICAgICAgICAgICAgICAgICAgICAgICAgICAgICAgIC JiUYIgUKZpDD2BOTFiYZLyTKElXPJfTNRqZBKyNBWu ICAgICAgICAgICAgICAgICAgICAgICAgICAgICAgICAgICAgICAgICAgICAgICAgICAgICAgICAgICAg EVHhELLtTEJoHOSoXENoLZJbGR6AUJRyYBAvIEVfLYFwTFRjEYCjDELfUWTpVPOfQEIuTTDeCXVqUTZd ICAgICAgICAgICAgICAgICAgICAgICAgICAgICAgIC SkNSKrHZLkBTEdGRVcLBBiFGBnIRHqQEAbGVFbML8EKRAaRTYhEMXoSOVpIAEmLBQmARSxZNNpVRKzCC AgICAgICAgICAgICAgICAgICAgICAgICAgICAgICAgICAgICAgICAgICAgICAgICAgICAgICAgICAgIC BaFKQcXRKiMZGqIX5OHAPhIEEgDHEvQPZsKPImXBBo ICAgICAgICAgICAgICAgICAgICAgICAgICAgICAgICAgICAgICAgICAgICAgICAgICAgICAgICAgICAg DWAqNTYhSGBvVUUlICTiVGQbFHQvFQ0RTB54sAYhz9E2LHAxKP3jprb/Sc1KZSarvqJlqGNbVI5ZCiYi AH9wng6OZeUzMY0aga2GPLtKYzWiG5I7vVIkIPWsLP BXGmYnY15nEJloTh89BEdcKOIhCvClRKl3La7XRkMpE7ukPPYnLqA1GSWpFuI2VFWcLgV0UNDdBoBaEO HkOIMlZQUkCPDVPMX9XWCxHiCcLlMwOSKiHFqpGVBCFRNbYLBiWmZlTGfiNU9Jg5AsxAI1OEf+Pg0KZW 1mf0LjTNc6WoJvMG7lhd9UBLdHEiTzX1CufrL5GDXv CDBfGx1XJXWiTXYyqRS7HeLyCYRFLpJuU2NlwK80ERNNOv4+SWzwfsNyKfkUKlAfNKDdm4DvBDd9CU7V AGNtIYr3oILtVDGVPQV9QTHppmkfSYWYt3C7FTYXLSDoqEJ6NfV7LjOgFfEnJSU5CPUyPT9cSPfkKE7Z FRF2SRcwJBRrOZSfJ8yPDlQcLNJnNkQakPspPF8JWx ZvB1WsuoZrfXL8YzUaIMUKMi5+NSnxfbTuTghSDiM0XKVau2ThYXo3ZX6FERAvNShnKD8CMMDpcL8gMT spKI3BScQ9SYMdSEUFXgSnN64iiLIiSVz3M9JqGwAfEHSyPejbOHSrQDddSbWxLDFaFbQaGBipVU4+ID 4+GPxeDF9OXOwdnzNiLBMaKp0ZYEYjFVOpYB2tDJVj FFTpW3B2kVzuEHSTNfUxD3rkzcguQE7sMVLzP759sIttojQiRNRgCDClBe6UVIOaSRL4CEHtgJZwHJSm QVYHYQlkEK9MiYShVDP3kR9aBRcaPPOuIUYbV5eKBkDzbXywDL18gEyhteWrtBBhLUk+Bl7IWJ1lm1Tj NLk8awGqSYmuYLG8YWmmHKTlVDPqWICrNBM7EOE0EL EXDcNbCOXrDDJyNIdnVERyOFKuhh1XIQDsLWF3RreiVnJlESHlFQBqSGutIARhRZA2CmU8NALmCMGqTA 9TVqTzPWMuDNBtVFphTBSzKXIljk4FVKElPSTnHzT9ZuRgEKTzRPWjBXmeCEYkFVYgZfN5QOOkXVNeOM 6HAxAeEBZaUVH6TbEeAOTlWDWgih2XXIGkQMWzJwO8 TlIbLRRtITRsDHuhKIIiMTVmBJs0TYAsCWJhIA2RReChBJAuSMBvTRNuLEVkCFFxsm7LWNIeCWIvEnrn BVKsHXZmCFLjEYhrVMBfBWJ2BRZ5BWHuQHFlLA4PArDrRCCeGIw7BbkiDARvAFWqpz6BOJBrCUByOevh OIAcJHOdSWUePOfbTCTlIBVtHqY2BZVmOQZbSW2OJa VlEMGoApK3ISRgOYRvIVVmgn6VYFWqRWDoTRFnQIXdTTMzMKLkRDdoLZUpZQA9PfMiNHEtQIXwGS1AQj YhCJGyXxzjTasgRFIjSJUgeu5UIOHoRZMyXFXlMwYsRAAuTOFvIFskYWCgKIFyCYg7IYCbZWHxQO3KYi TkQXKbQeSmXDTrNGLlBSSaga0QMYBgZJNaFlF6LYIa HNOsJDCxXLvtIMCuQKItRREoXSEkDPNnIB2LVgQbYTBfEmM5QhMfELFcVSUemc3SSSOvJTWfMyS0CnXy IVScXPZbROwkCPSqCLKeVKd3HFJyFAGwRU4GMuZsUDBcKjBsGWLtYQRrTQGzfe4UFLEsJWLqSIG4WuXw RWWbEHJvOSylLQWyLCH8TgDiXUYeZDFsOZ1VMhRyIQ JcOrY2UsStQWNpCSMsoq8ULSRxNFQnHkR3UeMiHNOiXFZmIFwsWADpDUA2CWj5RBKbUXLdBL8ELsKuRA ZmEfK2AjvgNKNcSUJtqf4GPYMnCEV1VEI4IpWjHTKeWVXtVLnsRTMsLKS9GHpzFADfQBRnZN8AIrDzWY EdBVp9UEiuHCDzZSYawx1IDEKsQPT6HEziHGVsNCYt SVPoGSnjDSXdYOV5CGu8IIPgCRZeSN9EQiQxLPXqEGG8LzPcIXTeKNPpjy8ONGFpGNG5KRS8VdQwXJJw IAWvQVarODYxEYG2OAN5CJEePSBuGC8MFkRlTEEjTHJ1EYDyYAZySTMvfp0TNPWiDZQ9UFh4AqWpEQYu RXSpUPvdITEfTSC0PTx9UBKqWCHaTV6FTqVcZOEvXG SlBFaxWWXzMYRora9XJZReQPI2XNC9KZDwEKPoAKFmXAmtPNJnPFR4YXK9ETKwUDIbSD9VEcCjIDBrNB R0IIIuBHMbOZFpyz3PZXZkLMM0Cwi3GHQqPVHkPAWpLEitEKMqOYE6MkS0QRDiMDYcNC0NJkNsUFMiPT f1JOufGCXkYWKxxo1KYLSkBWL9FHzyKIFrVGGwOLOr JVwpVRAeNLI9OWXeJNRcDGVaXA2HIeHiIIiiAUMKQfn6UVmvC0r0NFW0OY6YX3Ulz0DoRHUpIUKXZEnz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 ibuprofen 400 [...] threats or abuse. Denies injuries from another. yw8Yluuyalwboz screening: No deficits noted. Offer of HIV testing:patient was previously offered screening. Fall Risk None identified.Assessment:07:47 Derm: abrasion noted to left forearm; bacitracin applied. General: ne7Vdndshz in no apparent distress, obese, Behavior is cooperative.Neuro: Level of Consciousness is awake, alert, obeys commands,Oriented to person, place, time. Respiratory: Airway is patentRespiratory effort is even, unlabored.Psychosocial:05:05 SAFE Act Report Not Completed. Intervention: Observation Level 3. [facility] health consult is initiated at 05:00. Referral [...] two daysago by burning herself with a purification director. Pt has an extensive inpatientmental health history, the last time being admitted was 01/02/21 afteran overdose. [facility]. Pt [...] Support: poor The patient currentlylives in a [facility] residence. The patient is single. Detox [...] informed of patient's status at 09:09, ED RCnn70wigtdoel of patients status at 09:09. Disposition: Medically clearedfor disposition by Dr Levy. Psychiatric Consult is performed byphone with Dr Dylan Cabrera NP The patient has a safe destinationwhich is Pt will be discharged home to [facility] per Dylan Cabrera NP. Ptcan contract for safety and denies SI/HI. Pt will follow up with [facility].Pt provided contact information for [facility] and [facility]. Pt will come tothe ED if problems continue or worsen. DSM-V DX [place] I diagnosis:Bipolar D/O, mixed [place] II diagnosis: Deferred [place] III diagnosis:None. [place] IV diagnosis: poor impulse control. Abuse/DV Screen: Thepatient / caregiver reports he/she is not in a situation that causesfear, pain or injury. The patient is not a flight attendant inflight services or militarydependent. [place] Suicide Severity Rating Scale: Suicidal IdeationRating 0; Intensity of Ideations Rating 0; Suicidal Behavior Rating 0.Psych:02:35 Subjective: Patient's mood is sad, Delusions are denied, np0Qovfvvocvukpwy are denied Having thoughts of suicide. Plan [...] Temp 97.8; Pulse Ox 98% ; Weight tw4682.33 kg; Height 5 ft. 6 in. (167.64 [...] Physician. se09:45 No Physician assisted procedures completed. dp8Tywyhqnvrtvq Medications:No medications were administeredOutcome:09:20 Discharge ordered by . se09:45 Disposition: Discharged to home ef109:45 Condition: stable, Provider notified of abnormal vital signs.09:45 Discharge instructions given to patient, Instructed on dischargeinstructions, follow up and referral plans. Demonstratedunderstanding of instructions.09:45 Discharge Assessment: Patient verbalized understanding of dispositioninstructions. Patient has no functional deficits.10:15 Patient left the ED. zg4Uurvdhcrot:Kylie العلي MD MD seAl-Hussein, Nabeel, MD MD na1White, Jason, RN RN tx8GqaidgdeAmi arthur RN RN nq7PdnsIna Jack Nicole nhCorrections: (The following items were deleted from the chart)02:33 02:31 Home Meds: loratadine 10 mg oral TbDi once daily; jw5 jw505:15 05:06 Subjective: The patients chief complaint is [facility] with a plan to [...] days ago by burning herself with a purification director. Pt has anextensive inpatient mental health history. [facility] where she sees Sadaf. Pt doesnot know when her next appointment is. Pt . [place] Name Value Range Interpretation Code Description Data Stephanie renner(s) Supporting Document(s) ID Date Data Source [id number] 02/17/2021 04:09:00 AM EDT [facility] Name Value Range Interpretation Code Description Data Stephanie rce(s) Supporting Document(s) SALICYLATE < 1.7 mg/dL 0.0-20.0 [facility] ID Date Data Source [id number] 02/17/2021 04:09:00 AM EDT [facility] [place] Name Value Range Interpretation Code Description Data Stephanie rce(s) Supporting Document(s) ACETAMINOPHEN < 2.0 ug/mL 0-30 [facility] Data [facility] [id number] 02/17/2021 04:09:00 AM EDT [facility] [place] Name Value Range Interpretation Code Description Data Stephanie rce(s) Supporting Document(s) ETOH NONE DETECTED [facility] NONE DETECTED ID Date Data Source [id number] 02/17/2021 04:09:00 AM EDT [facility] [place] Name Value Range Interpretation Code Description Data Stephanie rce(s) Supporting Document(s) GLU 102 mg/dL 70-110 [facility] Patients taking Sulfasalazine may have f alsely depressedGlucose levels. Patients taking Sulfapyridine may havefalsely elevated Glucose levels. Patients should be drawnfor Glucose before the initial administration of eitherdrug. BUN 20 mg/dL 7-23 [facility] CRE 0.620 mg/dL 0.500-1.300 [facility] GFR > 60 mL/min [facility] CHLORIDE 111 mmol/L 99-110 [facility] NA 142 mmol/L 136-147 [facility] POTASSIUM 3.5 mmol/L 3.5-5.1 [facility] TCO2 22 mmol/L 20-33 [facility] ANION GAP 12.5 10.0-20.0 [facility] CA 9.0 mg/dL 8.3-10.7 [facility] ALKALINE PHOS 112 U/L 45-117 [facility] TP 7.3 g/dL 6.0-7.8 [facility] ALB 3.8 g/dL 3.5-5.0 [facility] ESRD Dialysis patient Albumin reference range: 2.9-4.4 g/dL GL 3.5 g/dL 2.3-3.5 [facility] A/G 1.1 1.0-2.5 [facility] T. BILIRUBIN 0.3 mg/dL 0.1-1.1 [facility] The Dimension Mason Total Bilirubin is n ot recommended forpatients undergoing treatment with eltrombopag (Promacta)due to the potential for falsely elevated results. ALTI 43 U/L 6-54 [facility] Patients taking Sulfasalazine and/or Sul fapyridine may havefalsely depressed ALT levels. Patients should be drawn forALT before the initial administration of either drug. AST 19 U/L 6-38 [facility] Patients taking Sulfasalazine and/or Sul fapyridine may havefalsely depressed AST levels. Patients should be drawn forAST before the initial administration of either drug. ID Date Data Source [id number] 02/17/2021 03:47:00 AM EDT [facility] [place] Name Value Range Interpretation Code Description Data Stephanie rce(s) Supporting Document(s) WBC 9.27 x10E3/uL 4.0-10.5 [facility] RBC 4.10 x10E6/uL 4.20-5.40 [facility] Hemoglobin 12.1 g/dL 12.0-16.0 [facility] Hematocrit 36.7 % 37.0-47.0 [facility] MCV 89.5 fL 81.0-99.0 [facility] MCH 29.5 pg 27.0-31.0 [facility] MCHC 33.0 g/dL 32.7-35.6 [facility] RDW 12.4 % 11.5-14.0 [facility] Platelet count 224 x10E3/uL 150-450 [facility] ital MPV 9.3 fl 6.9-9.5 [facility] Neutrophils 61.0 % 34-64 [facility] Lymphocytes 30.1 % 25-45 [facility] Monocytes 6.7 % 1.7-10.6 [facility] Eosinophils 1.6 % 0.4-7.0 [facility] Basophils 0.2 % 0.1-2.0 [facility] Imm. Gran. 0.4 % 0.1-2.0 [facility] Abs. Neutro. 5.65 x10E3/uL 1.2-7.6 [facility] Abs. Lymph. 2.79 x10E3/uL 1.0-3.5 [facility] Abs. Metcalfe. 0.62 x10E3/uL 0.1-1.0 [facility] Abs. Eosin. 0.15 x10E3/uL 0.1-0.7 [facility] Abs. Baso. 0.02 x10E3/uL 0.0-0.1 [facility] Abs. Imm. Gran. 0.04 x10E3/uL 0.0-0.1 N [facility] spital ANRBC% 0 % 0 [facility] ID Date Data Source [id number] 02/17/2021 04:05:00 AM EDT [facility] [place] Name Value Range Interpretation Code Description Data Stephanie rce(s) Supporting Document(s) PCP VISTA NEG NEGATIVE [facility] MINIMUM LEVEL OF DETECTION IS 25 ng/ml BENZODIAZEPINES NEG NEGATIVE [facility] MINIMUM LEVEL OF DETECTION IS 200 ng/ml COCAINE VISTA NEG NEGATIVE [facility] MINIMUM LEVEL OF DETECTION IS 300 ng/ml AMPHETAMINES NEG NEGATIVE [facility] MINIMUM LEVEL OF DETECTION IS 1000 ng/ml BARBITURATES [facility]G [facility]GATIVE [facility] CUTOFF CONCENTRATION IS 200 ng/ml CANNABINOIDS NEG NEGATIVE [facility] al CUTOFF CONCENTRATION IS 50 ng/ml METHADONE VISTA NEG NEGATIVE [facility] al MINIMUM LEVEL OF DETECTION IS 300 ng/ml OPIATE VISTA NEG NEGATIVE [facility] MINIMUM DETECTION LEVEL IS 300 ng/ml ID Date Data Source [id number] 02/17/2021 03:48:00 AM EDT [facility] Name Value Range Interpretation Code Description Data Stephanie rce(s) Supporting Document(s) URINE COLOR Yellow [facility] UAPR Cloudy [facility] UGLU Negative NEGATIVE [facility] URINE BILIRUBIN [facility]GATIVE [facility] UKET Negative NEGATIVE [facility] USG 1.028 1.010-1.025 [facility] UBLO Negative NEGATIVE [facility] UpH 5.0 5.0-8.0 [facility] UPRO Negative Negative [facility] UUB 1.0 mg/dL 0.2-1.0 [facility] UNIT Negative Negative [facility] ULEU Negative Negative [facility] ID Date Data Source [id number] 02/17/2021 01:54:00 PM EDT [facility] [place] Physician DocumentationClaxton-Cristina Hinkle edical CenterName: Yareli PatelvallAge: 20 yrsSex: FemaleDOB: 2000MRN: [id number] Date: 02/17/2021Time: 03:10Account#: [id number] 2Private MD:ED Physician Thea Bowman Summary:02/17/21 12:48Discharge [...] presents to ER via Private Vehicle with li9gwclindqub of Psych Problem.03:44 Patient presents for mental health evaluation stating suicidal tl3cnhgetbe. Patient voluntarily called the police and asked [...] 50 mg Oral tab 1 tab prn tsgpkunu29. Latuda 80 mg oral tab 1 tab once daily- PMHx: ADHD; ANXIETY; BIPOLAR DISORDER; Depressive disorder; PsychHx; ptsd;- PSHx: None;- Immunization history: Flu vaccine is up to date.- Social history: Smoking status: Patient uses tobacco products,current every day smoker. ETOH status Denies use of ETOH.- Advance Directives:: None.ROS:03:44 Constitutional: Negative for chills, fever. Eyes: Negative for lk4urpyoxztwgl, vision loss. ENT: Negative for difficulty swallowing,difficulty [...] patient appears in no acute distress, alert, hn2vgluk, comfortable, non- diaphoretic, non-toxic, well developed, obese.03:47 [...] Temp 97.6; Pulse Ox 98% on R/A; yg7Uwuprc 104.33 kg (R); Height 5 ft. 6 in. (167.64 cm) (R); Pain 0/10;10:26 BP 119 / 73; Pulse 74; Resp 17; Temp 98.0(O); Pulse Ox 97% on R/A; jlPain 0/10;13:53 BP 130 / 77; Pulse 76; Resp 16; Temp 97.8; Pulse Ox 96% on R/A; fbg03:16 Body Mass Index 37.12 (104.33 kg, 167.64 cm) tj9Yytxllc Coma Score:03:47 Eye Response: spontaneous(4). Verbal Response: oriented(5). Motor gy5Kfqkqzej: obeys commands(6). Total: 15.MDM:03:12 Patient medically screened. dk203:50 Data reviewed: nurses notes. ED course: Patient seen and medically gm0zzicalh, is very talkative speaking to multiple members of staffmaking some inappropriate commentary but generally pleasant, pendingmental health evaluation.04:39 ED course: Laboratory studies reviewed, patient medically cleared xz0yianpmp mental health evaluation resting comfortably.06:50 Transition of care: After a detail discussion of the patient's case, ws6umsk is transferred to Anshul Strauss MD.02/903:35 Order [...] Order name: Medically Cleared for Eval by-Psychosocial, Sand Filler jeremias2(.PSA); Complete Time: 11:55Dispensed Medications:07:32 Drug: Acetaminophen [...] Derek, MD MD dk2Marcellus, Courtney, RN RN kw9Flkkrmugfec: (The following items were deleted from the chart)10:15 03:16 Home Meds: Latuda 60 mg oral tab 1 tab Twice Daily; cm4 jl10:15 10:12 Home Meds: Zoloft 150MG Oral tab once daily; jl jl Name Value Range Interpretation Code Description Data Stephanie rce(s) Supporting Document(s) ID Date Data Source [id number] 02/17/2021 01:54:00 PM EDT [facility] [place] Nurse's NotesClaxton-Cristina Medical Tootie terName: Yareli Mejiage: 20 yrsSex: FemaleDOB: 2000MRN: [id number] Date: 02/17/2021Time: 03:10Account#: [id number] 2Polga SMITH:Diagnosis: Adjustment disorder, unspecifiedPresentation:02/903:14 Presenting complaint: Patient states: she is having suicidal thoughts cm4and anxiety. Presenting complaint: patient brought in by [facility] Karen. Coronavirus Screening: Have you been diagnosed withCOVID-19 in the past 30 days? no [facility] no Flu-like symptoms reported in the last 14 days: no.Have you had close contact with confirmed or suspected COVID-19 case?no Do you live in a setting where a large of amount of people live,such as longterm, family care, intermediate, etc? no. Have you traveledto a location with widespread or ongoing COVID-19 community spread [facility]? no Have you traveled internationally or hadcontact with someone that has traveled and has been ill in the past 3weeks? no Have you received the COVID vaccine? Yes. Ebola ScreeningInternational Travel No. Communicable Disease Screen: Negative forfever>/= 100 degrees Fahrenheit. Communicable disease screen isnegative. (-) rash or unusual skin lesion (-) travel/contact withtraveler (-) respiratory symptoms. Communication Speaks Estonian? Yes,is preferred language.03:14 Acuity: Triage 2 cm403:14 Method Of Arrival: Private Vehicle cm403:15 Acuity Assignment: Triage 2 yf8Hophnd Assessment:03:15 General: Appears in no apparent distress, Behavior is cooperative. bm7Tqhcte Screening: (1)Signs/symptoms infection No. Pain: Denies pain.PSS-3 [...] 50 mg Oral tab 1 tab prn ryuemlce73. Latuda 80 mg oral tab 1 tab once daily- PMHx: ADHD; ANXIETY; BIPOLAR DISORDER; Depressive disorder; PsychHx; ptsd;- PSHx: None;- Immunization history: Flu vaccine is up to date.- Social history: Smoking status: Patient uses tobacco products,current every day smoker. ETOH status Denies use of ETOH.- Advance Directives:: None.Screenin:17 Abuse screen: Denies threats or abuse. Denies injuries from another. qb5Aolcrezxcvb screening: No deficits noted. Offer of HIV [...] Report Not Completed. Intervention: [facility]. Referral [...] encouraged her to go to talk to [facility] staff with theseconcerns. Pt states that [...] PT also expresses having anappointment with the [facility] on the as well. Pt describes [...] several psychiatric admissions, ptwas recently [facility] in February [facility] CurrentOutpatient Mental Health Services: [facility]. Living Environment: Family /Home Support: Good The patient currently lives in a [facility] residence.The patient is single.12:26 Patient presents [...] is PT will be discharged home to [facility]. [facility]. Pt denies SI/HI. Pt will continue treatment through [facility] andupcoming appointments will be verified and expedited as needed. Pthas been provided with [facility] and [facility] numbers and has beeninstructed to return to the nearest ED should problems continue orworsen.12:34 DSM-V DX [place] I diagnosis: Adjustment D/O Unspecified [place] II kfdiagnosis: Deferred [place] III diagnosis: None. [place] IV diagnosis: poorcoping. [place] Suicide Severity Rating Scale: Suicidal IdeationRating 3; Intensity of Ideations Rating 13; Suicidal Behavior Rating1.Psych:03:18 Subjective: Delusions are denied, Hallucinations are denied Having do0aeqyewbl of suicide. Plan for suicide is to drown herself. Objective:Patient is cooperative, Speech is normal, Affect is appropriate.13:54 Interventions: Observation Level Level 2. fbgVital Signs:03:16 BP 117 / 96; Pulse 76; Resp 18; Temp 97.6; Pulse Ox 98% on R/A; hk2Xczdut 104.33 kg (R); Height 5 ft. 6 in. (167.64 cm) (R); Pain 0/10;10:26 BP 119 / 73; Pulse 74; Resp 17; Temp 98.0(O); Pulse Ox 97% on R/A; jlPain 0/10;13:53 BP 130 / 77; Pulse 76; Resp 16; Temp 97.8; Pulse Ox 96% on R/A; fbg03:16 Body Mass Index 37.12 (104.33 kg, 167.64 cm) kl4Ggtuaxk Coma Score:03:47 Eye Response: spontaneous(4). Verbal Response: oriented(5). Motor zp5Rrcgeuxj: obeys commands(6). Total: 15.ED Course:03:11 Patient arrived in ED. cm403:12 Anoop Bowman MD is Attending Physician. dk203:15 Triage completed. cm403:18 Patient has correct armband on for positive identification. Placed in jz2oedn. Bed in low position. Verbal reassurance given. [...] Disposition: Discharged to home ambulatory. fbg13:53 Condition: edfdofxi38:53 Discharge instructions given to patient, Instructed on [...] MD MD dk2Kelly, Krista, RN JOSE LUIS op7ExvvhxqxrWendy Severino, RN JOSE LUIS pd4Jumfyi, Marilu, QUIN QUIN nz9Hrdchgnurjq: (The following items were deleted from the [...] rce(s) Supporting Document(s) ID Date Data Source [id number] 02/15/2021 09:17:00 PM EDT [facility] Name Value Range Interpretation Code Description Data Stephanie rce(s) Supporting Document(s) SALICYLATE < 1.7 mg/dL 0.0-20.0 [facility] ID Date Data Source [id number] 02/15/2021 09:17:00 PM EDT [facility] [place] Name Value Range Interpretation Code Description Data Stephanie rce(s) Supporting Document(s) ETOH NONE DETECTED [facility] NONE DETECTED ID Date Data Source [id number] 02/15/2021 09:17:00 PM [facility]T [facility] [place] Name Value Range Interpretation Code Description Data Stephanie rce(s) Supporting Document(s) ACETAMINOPHEN < 2.0 ug/mL 0-30 [facility] Date Data Source [id number] 02/15/2021 09:17:00 PM EDT [facility] [place] Name Value Range Interpretation Code Description Data Stephanie rce(s) Supporting Document(s) GLU 91 mg/dL 70-110 [facility] Patients taking Sulfasalazine may have f alsely depressedGlucose levels. Patients taking Sulfapyridine may havefalsely elevated Glucose levels. Patients should be drawnfor Glucose before the initial administration of eitherdrug. BUN 17 mg/dL 7-23 [facility] CRE 0.697 mg/dL 0.500-1.300 [facility] GFR > 60 mL/min [facility] CHLORIDE 110 mmol/L 99-110 [facility] NA 144 mmol/L 136-147 [facility] POTASSIUM 4.2 mmol/L 3.5-5.1 [facility] TCO2 26 mmol/L 20-33 [facility] ANION GAP 12.2 10.0-20.0 [facility] CA 8.8 mg/dL 8.3-10.7 [facility] [place] PHOS 124 U/L 45-117 [facility] TP 7.3 g/dL 6.0-7.8 [facility] ALB 3.8 g/dL 3.5-5.0 [facility] ESRD Dialysis patient Albumin reference range: 2.9-4.4 g/dL GL 3.5 g/dL 2.3-3.5 [facility] A/G 1.1 1.0-2.5 [facility] T. BILIRUBIN 0.3 mg/dL 0.1-1.1 [facility] The Dimension Mason Total Bilirubin is n ot recommended forpatients undergoing treatment with eltrombopag (Promacta)due to the potential for falsely elevated results. ALTI 48 U/L 6-54 [facility] Patients taking Sulfasalazine and/or Sul fapyridine may havefalsely depressed ALT levels. Patients should be drawn forALT before the initial administration of either drug. AST 25 U/L 6-38 [facility] Patients taking Sulfasalazine and/or Sul fapyridine may havefalsely depressed AST levels. Patients should be drawn forAST before the initial administration of either drug. ID Date Data Source [id number] 02/15/2021 09:00:00 PM EDT [facility] Name Value Range Interpretation Code Description Data Stephanie rce(s) Supporting Document(s) WBC 11.28 x10E3/uL 4.0-10.5 [facility] RBC 4.17 x10E6/uL 4.20-5.40 L [facility] Hemoglobin 12.4 g/dL 12.0-16.0 [facility] Hematocrit 37.9 % 37.0-47.0 [facility] MCV 90.9 fL 81.0-99.0 [facility] MCH 29.7 pg 27.0-31.0 [facility] MCHC 32.7 g/dL 32.7-35.6 [facility] RDW 12.4 % 11.5-14.0 [facility] Platelet count 258 x10E3/uL 150-450 [facility] ital MPV 9.8 fl 6.9-9.5 [facility] Neutrophils 56.1 % 34-64 [facility] Lymphocytes 33.3 % 25-45 [facility] Monocytes 8.0 % 1.7-10.6 [facility] Eosinophils 1.7 % 0.4-7.0 [facility] Basophils 0.5 % 0.1-2.0 [facility] Imm. Gran. 0.4 % 0.1-2.0 [facility] Abs. Neutro. 6.32 x10E3/uL 1.2-7.6 [facility] Abs. Lymph. 3.76 x10E3/uL 1.0-3.5 [facility] Abs. Metcalfe. 0.90 x10E3/uL 0.1-1.0 N [facility] l Abs. Eosin. 0.19 x10E3/uL 0.1-0.7 [facility] Abs. Baso. 0.06 x10E3/uL 0.0-0.1 N [facility] l Abs. Imm. Gran. 0.05 x10E3/uL 0.0-0.1 [facility] spital ANRBC% 0 % 0 [facility] ID Date Data Source [id number] 02/15/2021 09:30:00 PM EDT [facility] Name Value Range Interpretation Code Description Data Stephanie rce(s) Supporting Document(s) PCP VISTA NEG NEGATIVE [facility] MINIMUM LEVEL OF DETECTION IS 25 ng/ml BENZODIAZEPINES NEG NEGATIVE [facility] al MINIMUM LEVEL OF DETECTION IS 200 ng/ml COCAINE VISTA NEG NEGATIVE [facility] MINIMUM LEVEL OF DETECTION IS 300 ng/ml AMPHETAMINES NEG NEGATIVE [facility] al MINIMUM LEVEL OF DETECTION IS 1000 ng/ml BARBITURATES NEG NEGATIVE [facility] al CUTOFF CONCENTRATION IS 200 ng/ml CANNABINOIDS NEG NEGATIVE [facility] al CUTOFF CONCENTRATION IS 50 ng/ml METHADONE VISTA NEG NEGATIVE [facility] al MINIMUM LEVEL OF DETECTION IS 300 ng/ml OPIATE VISTA NEG NEGATIVE [facility] MINIMUM DETECTION LEVEL IS 300 ng/ml ID Date Data Source [id number] 02/15/2021 09:21:00 PM EDT [facility] Name Value Range Interpretation Code Description Data Stephanie rce(s) Supporting Document(s) URINE COLOR Yellow [facility] UAPR Turbid [facility] UGLU Negative NEGATIVE [facility] URINE BILIRUBIN [facility]GAT[facility] UKET Negative NEGATIVE [facility] USG 1.022 1.010-1.025 [facility] UBLO Negative NEGATIVE [facility] UpH 7.5 5.0-8.0 [facility] UPRO Negative Negative [facility] UUB 1.0 mg/dL 0.2-1.0 [facility] UNIT Negative Negative N [facility] ULEU Trace Negative N [facility] ID Date Data Source [id number] 02/15/2021 09:21:00 PM EDT [facility] Name Value Range Interpretation Code Description Data Stephanie rce(s) Supporting Document(s) URINE RBC 0-2 RBCs/HPF NONE SEEN N [facility] URINE WBC 3-5 WBCs/HPF NONE SEEN N [facility] URINE BACTERIA Few [facility] EPI. Few NONE SEEN [facility] URINE CRYSTAL MANY AMORPHOUS NONE SEEN N [facility] pital ID Date Data Source [id number] 02/16/2021 01:02:00 PM EDT [facility] Physician DocumentationClaxton-Cristina Hinkle edical CenterName: Yareli DuvallAge: 20 yrsSex: FemaleDOB: 2000MRN: [id number] Date: 02/15/2021Time: 20:00Account#: [id number] 3Private MD:ED Physician Santiago RajanDiszach Summary:02/16/21 12:01Discharge OrderedLocation: Home Self Care il5Mjsgvlq: chronic pc5Kpkinceq: are unchanged ib5Mtsyscmed: Stable ry1Vaealuzsf- Major depressive disorder, recurrent, unspecified fe3Wrnyqlin: rf2- With: Emergency Department- When: As needed- Reason: Staple/Suture removalFollowup: rf2- With: Private Physician- When: 2 - 3 days- Reason: Recheck today's complaints, Continuance of careDischarge Instructions:- Discharge Summary Sheet am11- DEPRESSION le5Mtvrl:- Medication Reconciliation rf2- Medication Reconciliation Form - 2nd Copy rf2HPI:02/721:27 This 20 yrs old White Female presents to ER via Police with jt5gayahagurp of Psych Problem.21:27 Patient brought in for mental health evaluation. Apparently the pb8ngtwodv made concerning commentary about suicidal ideation includingplan [...] pravastatin 20 mg oral tab 1 tab jdnwdeb38. ibuprofen 400 mg Oral tab 1 tab prn for ygahwyewp75. lurasidone 80 mg oral tab 20:00- PMHx: ANXIETY; ADHD; BIPOLAR DISORDER; Depressive disorder; PsychHx; ptsd;- PSHx: None;- Immunization history: Flu vaccine is not up to date.- Social history: Smoking status: Patient uses tobacco products,current every day smoker. ETOH status Denies use of ETOH.- Advance Directives:: None.ROS:21:22 Constitutional: Negative for chills, fever. Eyes: Negative for ai2cnlazzhezpa, vision loss. ENT: Negative for difficulty swallowing,difficulty [...] patient appears in no acute distress, alert, zq7mbzim, comfortable, non-diaphoretic, non-toxic, well developed,restless.21:23 Head/face: Exam [...] 98.3; Pulse Ox 96 % on R/A; mj1Jqlwbw 104.33 kg (R); Height 5 ft. 6 in. (167.64 cm) (R); Pain 0/10;02/808:54 BP 119 / 82; Pulse 74; Resp 16; Temp 97.7(TE); Pulse Ox 97% ; pj13:00 BP 119 / 76; Pulse 90; Resp 18; Temp 98.8; Pulse Ox 96% on R/A; Pain blk0/10;02/720:04 Body Mass Index 37.12 (104.33 kg, 167.64 cm) na2Puahkap Coma Score:02/721:23 Eye Response: spontaneous(4). Verbal Response: oriented(5). Motor bu4Nyjnmave: obeys commands(6). Total: 15.MDM:20:12 Patient medically screened. dk221:29 Data reviewed: nurses notes. ED course: Patient resented for ql4tdwheldhg evaluation with stated suicidal commentary, does not [...] lab test result(s), CBC, drug level(s), acetaminophen, pu6jwaugdc , salicylate, electrolytes, hepatic panel, urinalysis, urinedrug screen.07:13 Transition of care: Care assumed from Anoop Bowman MD. ED course: ig4Ivfhdjp signed out by Dr. Bowman. Briefly, she is a 20-year-old withPMH of bipolar disorder, ADHD, anxiety, and depression who presentedfor SI. Patient became agitated and had to be medically sedated withGeodon. Labs are unremarkable; patient is medically cleared at thistime and pending PSA evaluation.12:01 ED course: Patient being recommended for discharge home to [facility] per rf2DrRoge Canela with a diagnosis [...] Order name: Medically Cleared for Eval by-Psychosocial, [place] Filler jeremias2(.PSA); Complete Time: 11:17Dispensed Medications:02/721:38 Drug: Geodon 20 mg [ziprasidone 20 m g/mL (final concentration) zp1wpwzqwkhpdhcw solution (1 mL)] Route: IM; Site: left deltoid;22:08 Follow up: Response: No adverse reaction; Anxiety decreased cm0806:02 Drug: Acetaminophen 650 mg [acetaminophen 325 mg tablet (2 tabs)] tn5Ytrct: PO;09:24 Not Given (Other Intervention Used): Nicotine [...]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 sheehantreatment coordinator, and the charge nurse. [...] able to have her one-on-one timewith her administrative assistant coordinator today and that she would lose [...] indicated. Continue to await bed availability at [facility].ObjectiveVital SignsVital Signs-LastResult Date TimePulse Ox 98 [...] Chronic6. Suicidal ideationCoordination of care provided [facility] nursing staff, treatment teamRisk/benefits discussed expected therapeutic effe, side effectsJustification for continued stay danger to self/others, behavior intolerableDATE SIGNED: 02/05/21 Electronically SignedTIME SIGNED: 1325 DYLAN CABRERA Name Value Range Interpretation Code Description Data Stephanie rce(s) Supporting Document(s) ID Date Data Source [id number] 02/04/2021 10:40:00 AM EDT [address] HEALTH PROGRESS NOTEPATIENT NAME: YARELI HATCH PHYSICIAN: BROOKLYN ONEILL MDAUTHOR: Lana Aquino. DATE: 01/03/21 MR#: [id number] NOTE DATE: 02/04/21 RM#: [id number] TIME: 1058 is a 20-year-old white female.CC/Hx Present Illness"I overdosed"Events Since Last EntryPatient met with her treatment team today, present for the meeting was myself,the charge nurse, and her administrative assistant coordinator Madelin. Patient presented verybright and cheerful. [...] patient. Continue to await bed availability at [facility]. Possiblyincrease her Topamax to 75 mg [...] rce(s) Supporting Document(s) ID Date Data Source [id number] 02/03/2021 10:04:00 AM EDT [place] [address] PROGRESS NOTEPATIENT NAME: YARELI HATCH PHYSICIAN: BROOKLYN ONEILL MDAUTHOR: Lana Aquino. DATE: 01/03/21 MR#: [id number] NOTE DATE: 02/03/21 RM#: 308EVALUATION TIME: 1013 is a 20-year-old white female.CC/Hx Present Illness"I overdosed"Events Since Last EntryPatient presented this a.m. for teaming as angry, irritable and slumped in achair with her head arms crossed across her chest while looking at the floorwith this repairer typewriter, her administrative assistant coordinator, and the charge nurse present. Itwas [...] of her privileges such asmeeting with her administrative assistant coordinator for one-on-one activity in the afternoonand [...] suicidal ideations and patient's inability to contract unm cancer centerafety and verbalizing intent to harm self. Continue with current behaviorplan and implementation of any revisions to improve continuity of care.Continue to await bed availability at [facility] for appropriate housing.ObjectiveVital SignsVital Signs-LastResult Date [...] rce(s) Supporting Document(s) ID Date Data Source [id number] 01/31/2021 10:20:00 AM EDT [address] HEALTH PROGRESS NOTEPATIENT NAME: YARELI HATCHTENGIOVANNY PHYSICIAN: BROOKLYN ONEILL MDAUTHOR: Dylan AquinoADM. DATE: 01/03/21 MR#: [id number] NOTE DATE: 01/31/21 RM#: [id number] TIME: 1033 is a 20-year-old white female.CC/Hx Present Illness"I overdosed"Events Since Last EntryEntered the room for treatment team this a.m. angry and irritable stating "I donot want to fing see you (referring to this repairer typewriter) or anyone for thatmatter. I do not [...] rce(s) Supporting Document(s) ID Date Data Source [id number] 01/30/2021 04:15:00 PM EDT [facility] [address] [address]IMOQGBFJ NOTE FOLLOW UPPATIENT NAME: YARELI HATCH PHYSICIAN: MAIKOL MEDINAOR: Jacque Chowdhury. DATE: 01/03/21 MR#: [id number] NOTE DATE: 01/30/21 RM#: [id number] TIME: 1620 [...] rce(s) Supporting Document(s) ID Date Data Source [id number] 01/30/2021 10:42:00 AM EDT [address] [address]VLVBOC HEALTH PROGRESS NOTEPATIENT NAME: YARELI HATCH PHYSICIAN: BROOKLYN ONEILL MDAUTHOR: Lana Aquino. DATE: 01/03/21 MR#: [id number] NOTE DATE: 01/30/21 RM#: 308EVALUATION TIME: 1121 is a 20-year-old white female.CC/Hx Present Illness"I overdosed"Events Since Last EntryPatient presented today to teaming as irritable and angry. Present for teamingtoday was the charge nurse, myself, and the administrative assistant coordinator. Patientstated she was not feeling well [...] of the chargenurse as that is her door person as outlined by her behavior plan. Patientstated [...] monitor for safety, and await bedavailability at [facility] as per her AOT.ObjectiveExaminationMusculoskeletalMuscle Strength & Tone normalGait normalStation normalResultsLaboratory DataRecent Labs-72 204055JezzcbjfcPjnylm (136 - 147 mmol/L) 141Potassium (3.5 - [...] rce(s) Supporting Document(s) ID Date Data Source [id number] 01/30/2021 10:48:00 PM EDT [facility] [address] [address]JKFWVBM NAME: YARELI HATCH#: [id number] PHYSICIAN: BROOKLYN ONEILL MD ADM. DATE: 01/03/21PROGRESS NOTE DATE: 01/30/21 .#: 308ACCOUNT #: [id number] NOTEIDENTIFICATION: A 20-year-old female with borderline personality [...] Dictated: 01/30/2021 10:21:59Date Transcribed: 01/30/2021 21:48:49LEIGH/Arti #: [id number]: 01/30/21 1021 Electronically SignedTRANS:01/30/21 2248 FILI CANELA MDTRANS BY:IATDATE SIGNED:01/31/21REPORT COPY TO: Name Value Range Interpretation Code Description Data Stephanie rce(s) Supporting Document(s) ID Date Data Source [id number] 01/31/2021 12:29:00 PM EDT [facility] Does the pt. have a limb restriction? NR estricted limb verified YNO BETA HEMOLYTIC STREPTOCOCCUS ISOLATEDNO PATHOGENS ISOLATED Name Value Range Interpretation Code Description Data Stephanie rce(s) Supporting Document(s) ID Date Data Source [id number] 01/29/2021 10:54:00 AM EDT [address] [address]BXGZDU HEALTH PROGRESS NOTEPATIENT NAME: YARELI HATCH PHYSICIAN: BROOKLYN ONEILL MDAUTHOR: Colleen SMITH,DhruvADM. DATE: 01/03/21 MR#: [id number] NOTE DATE: 01/29/21 RM#: [id number] TIME: 1058 [...] rce(s) Supporting Document(s) ID Date Data Source [id number] 01/28/2021 10:27:00 AM EDT [facility] [place] PT REFUSED Name Value Range Interpretation Code Description Data Stephanie rce(s) Supporting Document(s) CKI 139 U/L 17-150 [facility] ID Date Data Source [id number] 01/28/2021 10:27:00 AM EDT [facility] [place] [facility] Name Value Range Interpretation Code Description Data Stephanie rce(s) Supporting Document(s) GLU 103 mg/dL 70-110 [facility] Patients taking Sulfasalazine may have f alsely depressedGlucose levels. Patients taking Sulfapyridine may havefalsely elevated Glucose levels. Patients should be drawnfor Glucose before the initial administration of eitherdrug. BUN 22 mg/dL 7-23 [facility] CRE 0.589 mg/dL 0.500-1.300 [facility] GFR > 60 mL/min [facility] CHLORIDE 109 mmol/L 99-110 [facility] NA 141 mmol/L 136-147 [facility] POTASSIUM 3.9 mmol/L 3.5-5.1 [facility] TCO2 24 mmol/L 20-33 [facility] ANION GAP 11.9 10.0-20.0 [facility] CA 8.9 mg/dL 8.3-10.7 [facility] ALKALINE PHOS 113 U/L 45-117 [facility] TP 7.6 g/dL 6.0-7.8 [facility] ALB 3.8 g/dL 3.5-5.0 [facility] ESRD Dialysis patient Albumin reference range: 2.9-4.4 g/dL GL 3.8 g/dL 2.3-3.5 [facility] A/G 1.0 1.0-2.5 [facility] T. BILIRUBIN 0.6 mg/dL 0.1-1.1 [facility] The Dimension Mason Total Bilirubin is n ot recommended forpatients undergoing treatment with eltrombopag (Promacta)due to the potential for falsely elevated results. ALTI 43 U/L 6-54 [facility] Patients taking Sulfasalazine and/or Sul fapyridine may havefalsely depressed ALT levels. Patients should be drawn forALT before the initial administration of either drug. AST 22 U/L 6-38 [facility] Patients taking Sulfasalazine and/or Sul fapyridine may havefalsely depressed AST levels. Patients should be drawn forAST before the initial administration of either drug. ID Date Data Source [id number] 01/28/2021 10:22:00 AM EDT [facility] [place] Name Value Range Interpretation Code Description Data Stephanie rce(s) Supporting Document(s) WBC 5.96 x10E3/uL 4.0-10.5 [facility] RBC 4.47 x10E6/uL 4.20-5.40 [facility] Hemoglobin 13.4 g/dL 12.0-16.0 [facility] Hematocrit 39.5 % 37.0-47.0 [facility] MCV 88.4 fL 81.0-99.0 [facility] MCH 30.0 pg 27.0-31.0 [facility] MCHC 33.9 g/dL 32.7-35.6 [facility] RDW 12.0 % 11.5-14.0 [facility] Platelet count 256 x10E3/uL 150-450 [facility] ital MPV 9.5 fl 6.9-9.5 [facility] Neutrophils 55.0 % 34-64 [facility] Lymphocytes 35.9 % 25-45 [facility] Monocytes 6.5 % 1.7-10.6 [facility] Eosinophils 1.8 % 0.4-7.0 [facility] Basophils 0.3 % 0.1-2.0 [facility] Imm. Gran. 0.5 % 0.1-2.0 [facility] Abs. Neutro. 3.27 x10E3/uL 1.2-7.6 [facility] [place] Abs. Lymph. 2.14 x10E3/uL 1.0-3.5 [facility] Abs. Metcalfe. 0.39 x10E3/uL 0.1-1.0 [facility] Abs. Eosin. 0.11 x10E3/uL 0.1-0.7 [facility] Abs. Baso. 0.02 x10E3/uL 0.0-0.1 [facility] Abs. Imm. Gran. 0.03 x10E3/uL 0.0-0.1 N [facility] spital ANRBC% 0 % 0 [facility] ID Date Data Source [id number] 01/28/2021 09:45:00 AM EDT [place] [address] [place], [place] [address]JJAMUN [facility]ALTH PROGRESS NOTEPATIENT NAME: YARELI HATCH PHYSICIAN: BROOKLYN ONEILL MDAUTHOR: Lana Aquino. DATE: 01/03/21 MR#: [id number] NOTE DATE: 01/28/21 RM#: [id number] TIME: 954 [...] rce(s) Supporting Document(s) ID Date Data Source [id number] 01/27/2021 10:15:00 AM EDT [address] HEALTH PROGRESS NOTEPATIENT NAME: YARELI HATCH PHYSICIAN: BROOKLYN ONEILL MDAUTHOR: Gema WHITE,Lana. DATE: 01/03/21 MR#: [id number] NOTE DATE: 01/27/21 RM#: [id number] TIME: 1114 is a 20-year-old white female.CC/Hx Present Illness"I overdosed"Events Since Last EntryPatient met with team today and presented as disheveled, unkempt, andmalodorous. Present were myself, administrative assistant coordinator, and charge nurse.Weekend events were discussed. [...] focused on havingmore one-on-one attention with her administrative assistant coordinator. She was told due toher behaviors [...] hasbeen receiving. Still awaiting bed availability at [facility] for housing as per [facility]. She currently denies any physical/medical complaints.ObjectiveVital [...] rce(s) Supporting Document(s) ID Date Data Source [id number] 02/03/2021 11:47:00 AM EDT [address] HEALTH PROGRESS NOTEPATIENT NAME: YARELI HATCH [facility] PHYSICIAN: BROOKLYN ONEILL MDAUTHOR: Pasquale WHITE,Ana. DATE: 01/03/21 MR#: [id number] NOTE DATE: 01/26/21 RM#: [id number] TIME: 1154 [...] rce(s) Supporting Document(s) ID Date Data Source [id number] 01/24/2021 09:36:00 AM EDT [address] [address]INODVG HEALTH PROGRESS NOTEPATIENT NAME: YARELI HATCH [facility]ANNY PH[facility]ICIAN: BROOKLYN ONEILL MDAUTHOR: Lana Aquino. DATE: 01/03/21 MR#: [id number] NOTE DATE: 01/24/21 RM#: [id number] TIME: 951 is a 20-year-old white female.CC/Hx Present Illness"I overdosed"Events Since Last EntryPatient presented as unkempt, disheveled and malodorous today. We discussedMarilu's good behaviors from yesterday and we also discussed boundaries todayin regards to staff and her administrative assistant coordinator. Patient became upset whenwe discussed boundaries [...] breath that was not audible to myself,the administrative assistant coordinator or the charge nurse.Mental status exam: [...] nursing staff.Continue to await bed availability at [facility]. Patient currently d enies anymedical/physical complaints.ObjectiveVital [...] rce(s) Supporting Document(s) ID Date Data Source [id number] 01/23/2021 09:20:00 AM EDT [address] HEALTH PROGRESS NOTEPATIENT NAME: YARELI HATCH CATSALVADOR PHYSICIAN: BROOKLYN ONEILL MDAUTHOR: Gema WHITE,DylanADM. DATE: 01/03/21 MR#: [id number] NOTE DATE: 01/23/21 RM#: [id number] TIME: 935 [facility] [id number]Knej is a 20-year-old white female.CC/Hx Present Illness"I overdosed"Events Since Last EntryPresented today as cooperative and pleasant. In the meeting today the chargenurse was present, myself, and her administrative assistant coordinator Madelin. We discussedthe events yesterday that [...] also wrote a letter inputted underneath the administrative assistant coordinator'sdoor and inquired about this. This was discussed with her and she was informedthis was a good demonstration of how to use her coping skills. We discussedher behavior plan, how it was going to be developed, and what things she canexpect in it. We continue to discuss life skills. [facility] [...] of care.Continuing to await bed availability at [facility].ObjectiveVital SignsVital Signs-LastResult Date TimeB/P 118/78 01/23 [...] rce(s) Supporting Document(s) ID Date Data Source [id number] 01/22/2021 11:07:00 AM EDT [place] [address] HEALTH PROGRESS NOTEPATIENT NAME: YARELI HATCH CATTENGIOVANNY PHYSICIAN: BROOKLYN ONEILL MDAUTHOR: Gema WHITE,Lana. DATE: 01/03/21 MR#: [id number] NOTE DATE: 01/22/21 RM#: [id number] TIME: 1116 [...] Continue to await for bed availability at [facility].Patient denies any physical and/or medical concerns [...] rce(s) Supporting Document(s) ID Date Data Source [id number] 01/21/2021 08:25:00 AM EDT [address] HEALTH PROGRESS NOTEPATIENT NAME: YARELI HATCH PHYSICIAN: BROOKLYN ONEILL MDAUTHOR: Gema WHITE,Lana. DATE: 01/03/21 MR#: [id number] NOTE DATE: 01/21/21 RM#: [id number] TIME: 1000 [...] to wait for an open bed at [facility] for housing.ObjectiveVital SignsVital Signs-LastResult Date TimeB/P [...] rce(s) Supporting Document(s) ID Date Data Source [id number] 01/20/2021 11:20:00 AM EDT [place] [id number] HEALTH PROGRESS NOTEPATIENT NAME: YARELI HATCH PHYSICIAN: BROOKLYN ONEILL MDAUTHOR: Lana Aquino. DATE: 01/03/21 MR#: [id number] NOTE DATE: 01/20/21 RM#: [id number] TIME: 1255 [...] would notice. [facility] [...] safety. Continue to await bed availability at [facility] for placement as per [facility] order. Lab work will again be [...] rce(s) Supporting Document(s) ID Date Data Source [id number] 01/18/2021 09:57:00 AM EDT [facility] [place] Name Value Range Interpretation Code Description Data Stephanie rce(s) Supporting Document(s) CHOL 182 mg/dL 100-200 [facility] TRIG 118 mg/dL 30-190 [facility] HDL 52 mg/dL 35-80 [facility] LDL DIRECT 111 mg/dL 0-100 [facility] VLDL 19 mg/dL 0-100 [facility] ID Date Data Source [id number] 01/18/2021 09:57:00 AM EDT [facility] Name Value Range Interpretation Code Description Data [facility] rce(s) Supporting Document(s) GLU 113 mg/dL 70-110 [facility] Patients taking Sulfasalazine may have f alsely depressedGlucose levels. Patients taking Sulfapyridine may havefalsely elevated Glucose levels. Patients should be drawnfor Glucose before the initial administration of eitherdrug. BUN 17 mg/dL 7-23 [facility] CRE 0.741 mg/dL 0.500-1.300 [facility] GFR > 60 mL/min [facility] CHLORIDE 107 mmol/L 99-110 [facility] NA 142 mmol/L 136-147 [facility] POTASSIUM 4.4 mmol/L 3.5-5.1 [facility] TCO2 30 mmol/L 20-33 [facility] ANION GAP 9.4 10.0-20.0 [facility] CA 9.2 mg/dL 8.3-10.7 [facility] ALKALINE PHOS 111 U/L 45-117 [facility] TP 7.3 g/dL 6.0-7.8 [facility] ALB 3.9 g/dL 3.5-5.0 [facility] ESRD Dialysis patient Albumin reference range: 2.9-4.4 g/dL GL 3.4 g/dL 2.3-3.5 [facility] A/G 1.1 1.0-2.5 [facility] T. BILIRUBIN 0.5 mg/dL 0.1-1.1 [facility] The Dimension Mason Total Bilirubin is n ot recommended forpatients undergoing treatment with eltrombopag (Promacta)due to the potential for falsely elevated results. ALTI 57 U/L 6-54 [facility] Patients taking Sulfasalazine and/or Sul fapyridine may havefalsely depressed ALT levels. Patients should be drawn forALT before the initial administration of either drug. AST 31 U/L 6-38 [facility] Patients taking Sulfasalazine and/or Sul fapyridine may havefalsely depressed AST levels. Patients should be drawn forAST before the initial administration of either drug. ID Date Data Source [id number] 01/17/2021 10:24:00 AM EDT [address] PROGRESS NOTEPATIENT NAME: YARELI HATCH PHYSICIAN: BROOKLYN ONEILL MDAUTHOR: Gema WHITE,Lana. DATE: 01/03/21 MR#: [id number] NOTE DATE: 01/17/21 RM#: [id number] TIME: 1036 [...] complaints.He said she spoke with her intensive correctional counselor/case manager yesterday, Eve and theycompleted the enrollment paperwork required the intensive case managementprogram. She also said she spoke with Lorraine Regarding a bed at [facility] andaccording to the director of the TLS [...] rce(s) Supporting Document(s) ID Date Data Source [id number] 01/16/2021 01:40:00 PM EDT [address] HEALTH PROGRESS NOTEPATIENT NAME: YARELI HATCH PHYSICIAN: BROOKLYN ONEILL MDAUTHOR: Lana Aquino. DATE: 01/03/21 MR#: [id number] NOTE DATE: 01/16/21 RM#: [id number] TIME: 1413 [...] Shortly afterthe meeting she approached Gloria her administrative assistant coordinator asking to be put onthe Abilify [...] and maintain safety. Await bed availability at [facility] as in accordancewith her AOT. Monitor [...] rce(s) Supporting Document(s) ID Date Data Source [id number] 01/16/2021 10:03:00 AM EDT [place] Exam Number: [id number] Reported By: - JEREMIAH PEOPLES MD Signed By: JEREMIAH PEOPLES MD Name Value Range Interpretation Code Description Data Stephanie rce(s) Supporting Document(s) ID Date Data Source [id number] 01/15/2021 11:23:00 AM EDT [facility] [place] [address] HEALTH PROGRESS NOTEPATIENT NAME: YARELI HATCH PHYSICIAN: BROOKLYN ONEILL MDAUTHOR: Lana Aquino. DATE: 01/03/21 MR#: [id number] NOTE DATE: 01/15/21 RM#: [id number] TIME: 1136 [...] wait for a bed tobecome available at [facility] as per her AOTDATE SIGNED: 01/15/21 Electronically SignedTIME SIGNED: 1136 DYLAN CABRERA Name Value Range Interpretation Code Description Data Stephanie rce(s) Supporting Document(s) ID Date Data Source [id number] 01/14/2021 03:17:00 PM EDT [place] [id number] HEALTH PROGRESS NOTEPATIENT NAME: MAMIEYARELI DWYER PHYSICIAN: BROOKLYN ONEILL MDAUTHOR: Lana Aquino. DATE: 01/03/21 MR#: [id number] NOTE DATE: 01/14/21 RM#: [id number] TIME: 1523 [...] discharge planningDATE SIGNED: 01/14/21 Electronically SignedTIME SIGNED: 3871 DYLAN CABRERA Name Value Range Interpretation Code Description Data Stephanie rce(s) Supporting Document(s) ID Date Data Source [id number] 01/11/2021 10:27:00 AM EDT [address] [address] HEALTH PROGRESS NOTEPATIENT NAME: YARELI HATCH CATTENGIOVANNY PHYSICIAN: BROOKLYN ONEILL MDAUTHOR: Alfred SMITH,deedeeTrace Regional HospitalPUJA. DATE: 01/03/21 MR#: [id number] NOTE DATE: 01/11/21 RM#: [id number] TIME: 1038 [...] self/othersDATE SIGNED: 01/11/21 Electronically SignedTIME SIGNED: 1038 AAMDA MCLEAN MD Name Value Range Interpretation Code Description Data Stephanie rce(s) Supporting Document(s) ID Date Data Source [id number] 01/10/2021 11:17:00 AM EDT [address] HEALTH PROGRESS NOTEPATIENT NAME: YARELI HATCH PHYSICIAN: BROOKLYN ONEILL MDAUTHOR: Lana Aquino. DATE: 01/03/21 MR#: [id number] NOTE DATE: 01/10/21 RM#: 320EVALUATION TIME: 1121 [...] rce(s) Supporting Document(s) ID Date Data Source [id number] 01/09/2021 03:23:00 PM EDT [address] [address] HEALTH PROGRESS NOTEPATIENT NAME: YARELI HATCH PHYSICIAN: BROOKLYN ONEILL MDAUTHOR: Gema WHITE,DylanADM. DATE: 01/03/21 MR#: [id number] NOTE DATE: 01/09/21 RM#: 320EVALUATION TIME: 1527 [...] rce(s) Supporting Document(s) ID Date Data Source [id number] 01/09/2021 08:36:00 AM EDT [place], [place] [address]MENTAL HEALTH PROGRESS NOTEPATIENT NAME: YARELI HATCH CATTENGIOVANNY PHYSICIAN: BROOKLYN ONEILL MDAUTHOR: Gema WHITE,Lana. DATE: 01/03/21 MR#: [id number] NOTE DATE: 01/09/21 RM#: 320EVALUATION TIME: 908 [...] in process and awaitingfor bed availability at [facility].Assessment/PlanDiagnosis1. Suicide attemptStatus Acute2. Major depressive disorderStatus Chronic3. Bipolar affective disorderStatus Chronic4. Borderline personality disorderStatus Chronic5. Obesity, morbidStatus ChronicCoordination of care provided with nursing staffRisk/benefits discussed side effectsADDENDUM: Dylan Aquino on 01/09/21 at 0926progress note is for 01/08/2021ATE SIGNED: 01/09/21 Electronically SignedTIME SIGNED: 908 DYLAN CABRERA Name Value Range Interpretation Code Description Data Stephanie rce(s) Supporting Document(s) ID Date Data Source [id number] 01/07/2021 02:35:00 PM EDT [address] HEALTH PROGRESS NOTEPATIENT NAME: MAMIEYARELI PHYSICIAN: BROOKLYN ONEILL MDAUTHOR: Surendra SMITH,P.ADM. DATE: 01/03/21 MR#: [id number] NOTE DATE: 01/07/21 RM#: 320EVALUATION TIME: 1436 is a 20-year-old white female.CC/Hx Present Illness"I overdosed"Events Since Last EntryYareli was seen today along with the administrative assistant coordinator, Gloria, and [facility]student [facility]. She believes herself to be Romel today. Shestates she is doing well. She expressed her interest in AOT for 6 months. Iinformed the patient that we have talked to Omi Tovar about her interest.Patient states she just want to leave the place and go outside. Patient doesnot have any address to discharge to. [facility] Patient was informed that there are beds open in [facility] andcecil could be transferred there. She was [...] section were scribed by Shell Ariaz on 01/10/21 at 1646DATE SIGNED: 01/10/21 Electronically SignedTIME SIGNED: 1648 BROOKLYN ONEILL MD Name Value Range Interpretation Code Description Data Stephanie rce(s) Supporting Document(s) ID Date Data Source [id number] 01/06/2021 02:26:00 PM EDT [address] HEALTH PROGRESS NOTEPATIENT NAME: YARELI HATCH CATSALVADOR PHYSICIAN: BROOKLYN ONEILL MDAUTHOR: Surendra SMITH,P.ADM. DATE: 01/03/21 MR#: [id number] NOTE DATE: 01/06/21 RM#: 320EVALUATION TIME: 1427 is a 20-year-old white female.CC/Hx Present Illness"I overdosed"Events Since Last EntryYareli was seen today along with the administrative assistant coordinator, Gloria. Patientwas brought to the ER by rescue squad due to overdose. [facility] [place], which [facility] [place]. She is on waiting list for TLS in [place] but isunsure how long will it take. She states she drank a lot of coffee which causedher to be awake whole night and she spent more than 24 hours awake. She gotoverwhelmed and overdosed on Ibuprofen and Prove ntil as she was annoyed by acase cancer registry manager who was trying to get her [...] 01/06 0859Resp 18 01/06 0634Current MedicationsMiscellaneous Read DIDE62R NANicotine (Nicorette) 2 MG Q2HPRN PRN POCarbamide [...] plan and housing. We are working with [facility] and other housingagencies such as [facility] for supportive housing options.Portions of this section were scribed by Shell Ariza on 01/10/21 at 1643DATE SIGNED: 01/10/21 Electronically SignedTIME SIGNED: 1648 BROOKLYN ONEILL MD Name Value Range Interpretation Code Description Data Stephanie rce(s) Supporting Document(s) ID Date Data Source [id number] 01/04/2021 09:49:00 AM EDT [address] PSYCHIATRIC ASSESSMENTPATIENT NAME: YARELI HATCH MR#: [id number] PHYSICIAN: AMADA MCLEAN MDAUTHOR: Amada Mclean MD DATE: 01/03/21 RM#: 3RDHistoryIdentificationPatient is a 20-year-old white female who was brought to [facility] ED by rescuesquad.Chief Complaint"I overdosed"Reason for AdmissionPatient overdosed on Ibuprofen and Proventil. Patient is not sure why she didit, but she also states that it may have been a suicidal attempt. Her sleep isok. Appetite is good. She has a hx of impulse control problem. She has beenfeeling hopelese, helpless and depressed at times. She was [facility] at [facility]. Shehas been been asked by the [facility] not to return back with them, so she is homelessat this time.History of Presenting IllnessPatient was brought to ED by rescue squad due to overdose. [facility], to [facility], which then she was brought to the [facility] building in [place]. Sheis on the waiting list for TLS in [place] but is unsure on how long it willtake. Patient has a long history of suicidal attempts, and also has hadnumerous inpatient admissions to this facility and to other facilities throughout [facility].Portions of this section were scribed by Medina [...] of Knowledge: awareness of low normal rangeAdditional [id number] white female who was cooperative during the [...] rce(s) Supporting Document(s) ID Date Data Source [id number] 01/03/2021 05:30:00 PM EDT [facility] [place] [id number] HEALTH HISTORY AND PHYSICALPATIENT NAME: YARELI HATCH MR#: [id number] PHYSICIAN: AMADA MCLEAN MDAUTHOR: Theresa Melchor DATE: [...] MeanPulse Ox 99 99 99O2 DeliveryO2 Flow WzqtPhZ7Acmhfcey ExaminationGeneral Appearance no acute distress, conversant, face [...] CloudyUrine pH (5.0 - 8.0) 6.0Ur Specific [place]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 past psych historyof bipolar disorder, poor impulse control and borderline personality disorderChief complaint concern about her ability to maintain safety and possiblesuicidal thoughtsEvents Since Last EntryYareli was seen today along with the administrative assistant coordinator, Gloria. She didnot allow the students [...] flat.Portions of this section were scribed by Sehll Ariza on 11/29/20 at 1606Assessment/PlanDiagnosis1. Suicide attemptStatus [...] rce(s) Supporting Document(s) ID Date Data Source [id number] 11/28/2020 04:08:00 PM EDT [facility] [address] [id number] HEALTH PROGRESS NOTEPATIENT NAME: MAMIEYARELI DWYER CATTENDING PHYSICIAN: BROOKLYN ONEILL MDAUTHOR: Surendra SMITH,P.ADM. DATE: 10/31/20 MR#: [id number] NOTE DATE: 11/28/20 RM#: 310EVALUATION TIME: 1624 is 20-year-old female, currently single, past psych historyof bipolar disorder, poor impulse control and borderline personality disorderChief complaint concern about her ability to maintain safety and possiblesuicidal thoughtsEvents Since Last EntryYareli was seen today along with the administrative assistant coordinator, Gloria, she didnot allow the student [...] ask Tan to arrange a meeting with [facility] to discuss aboutany other option available for her. patient has refused for any medicationchanges.Portions of this section were scribed by Shell Ariza on 11/28/20 at 1622DATE SIGNED: 11/28/20 Electronically SignedTIME SIGNED: 1625 BROOKLYN ONEILL MD Name Value Range Interpretation Code Description Data Stephanie rce(s) Supporting Document(s) ID Date Data Source [id number] 11/27/2020 03:38:00 PM EDT [place] [id number] HEALTH PROGRESS NOTEPATIENT NAME: YARELI HATCH PHYSICIAN: BROOKLYN ONEILL MDAUTHOR: Surendra SMITH,P.ADM. DATE: 10/31/20 MR#: [id number] NOTE DATE: 11/27/20 RM#: 310EVALUATION TIME: 1539 is 20-year-old female, currently single, past psych historyof bipolar disorder, poor impulse control and borderline personality disorderChief complaint concern about her ability to maintain safety and possiblesuicidal thoughtsEvents Since Last EntryYareli was seen today along with the administrative assistant coordinator, Gloria, and a PAstudent from [facility]. She is doing well. I was informed [...] insists thatI need to refer her to [facility]. But my concern is such things [...] rce(s) Supporting Document(s) ID Date Data Source [id number] 11/26/2020 02:11:00 PM EDT [address] HEALTH PROGRESS NOTEPATIENT NAME: YARELI HATCH PHYSICIAN: BROOKLYN ONEILL MDAUTHOR: Surendra SMITH,P.ADM. DATE: 10/31/20 MR#: [id number] NOTE DATE: 11/26/20 RM#: 310EVALUATION TIME: 1411 is 20-year-old female, currently single, past psych historyof bipolar disorder, poor impulse control and borderline personality disorderChief complaint concern about her ability to maintain safety and possiblesuicidal thoughtsEvents Since Last EntryYareli was seen today along with the administrative assistant coordinator, Gloria, and a PAstudent from [facility]. She was irritated and angry today. She [...] will be making SPOA referrals to other [facility] also. Yareli continued to express her anger, [...] We are in pursuit of an appropriate [facility] or a safe dischargeoption for her. Ji Ng is coming here tomorrow, to do an intake for afamily alf for her. Will also consider increasing her Zyprexa.Portions of this section were scribed by Shell Ariza on 11/26/20 at 1503DATE SIGNED: 11/26/20 Electronically SignedTIME SIGNED: 1507 BROOKLYN ONEILL MD Name Value Range Interpretation Code Description Data Stephanie rce(s) Supporting Document(s) ID Date Data Source [id number] 11/25/2020 02:44:00 PM EDT [address] [id number] HEALTH PROGRESS NOTEPATIENT NAME: YARELI HATCH CATTENGIOVANNY PHYSICIAN: BROOKLYN ONEILL MDAUTHOR: Surendra SMITH,P.ADM. DATE: 10/31/20 MR#: [id number] NOTE DATE: 11/25/20 RM#: 310EVALUATION TIME: 1444 is 20-year-old female, currently single, past psych historyof bipolar disorder, poor impulse control and borderline personality disorderChief complaint concern about her ability to maintain safety and possiblesuicidal thoughtsEvents Since Last EntryYareli was seen today along with the administrative assistant coordinator, Gloria, and a PAstudent from [facility]. She is doing the same. She does not show anysignificant improvement. Patient was informed that we are applying for [facility] family [facility]. I was informed by [...] she has a history of being in [facility] in her childhood.Portions of this section were [...] is making referral to Par[facility] in [facility] for [place].Portions of this section were scribed by Shell Ariza on 11/25/20 at 1926DATE SIGNED: 11/25/20 Electronically SignedTIME SIGNED: 1934 BROOKLYN ONEILL MD Name Value Range Interpretation Code Description Data Stephanie rce(s) Supporting Document(s) ID Date Data Source [id number] 11/22/2020 10:16:00 AM EDT [address] HEALTH PROGRESS NOTEPATIENT NAME: YARELI HATCH PHYSICIAN: BROOKLYN ONEILL MDAUTHOR: Colleen SMITH,DhruvADM. DATE: 10/31/20 MR#: [id number] NOTE DATE: 11/22/20 RM#: 310EVALUATION TIME: 1018 [...] to go and she might go to [facility] down the road as well.Discussed with the administrative assistant coordinator about treatment plan that patient iscurrently [...] rce(s) Supporting Document(s) ID Date Data Source [id number] 11/21/2020 01:41:00 PM EDT [place] [id number] HEALTH PROGRESS NOTEPATIENT NAME: YARELI HATCH PHYSICIAN: BROOKLYN ONEILL, MDAUTHOR: Surendra SMITH,P.ADM. DATE: 10/31/20 MR#: [id number] NOTE DATE: 11/21/20 RM#: 310EVALUATION TIME: 1356 [...] [facility] [...] unable to be placed in many [facility] such [facility] where she went to [facility] and then she signed out from themcc. Her prognosis remains guarded. She denied suicidal [...] be an appropriate candidate for 24hours supervised mcc. She is not making progress. Her providers are alsoworking on finding a different placement for her. Will increase her Zyprexa andpropranolol.Portions of this section were scribed by Shell Ariza on 11/21/20 at 1357DATE SIGNED: 11/21/20 Electronically SignedTIME SIGNED: 1357 BROOKLYN ONEILL MD Name Value Range Interpretation Code Description Data Stephanie rce(s) Supporting Document(s) ID Date Data Source [id number] 11/20/2020 02:02:00 PM EDT [address] [address]WUVMAV HEALTH PROGRESS NOTEPATIENT NAME: YARELI HATCH CATTENDING PHYSICIAN: BROOKLYN ONEILL, MDAUTHOR: Surendra SMITH,P.ADM. DATE: 10/31/20 MR#: [id number] NOTE DATE: 11/20/20 RM#: 310EVALUATION TIME: 1403 is 20-year-old female, currently single, past psych historyof bipolar disorder, poor impulse control and borderline personality disorderChief complaint concern about her ability to maintain safety and possiblesuicidal thoughtsEvents Since Last EntryYareli was seen today along with the administrative assistant coordinator, Gloria, and a PAstudent from [facility]. Patient states she is very stressed. Sheadmits [...] primary school and then she pursued with [employer] for her high school. She reports she has been tested for low IQ in earlyage.Topic of her placement came up. Patient states [facility]. She stated she has been allowed [...] Patient states she was [facility] in [facility]; hence, she does not wish to [...] rce(s) Supporting Document(s) ID Date Data Source [id number] 11/19/2020 01:53:00 PM EDT [address] HEALTH PROGRESS NOTEPATIENT NAME: YARELI HATCH PHYSICIAN: BROOKLYN ONEILL MDAUTHOR: Surendra SMITH,P.ADM. DATE: 10/31/20 MR#: [id number] NOTE DATE: 11/19/20 RM#: 310EVALUATION TIME: 1354 is 20-year-old female, currently single, past psych historyof bipolar disorder, poor impulse control and borderline personality disorderChief complaint concern about her ability to maintain safety and possiblesuicidal thoughtsEvents Since Last EntryYareli was seen today along with the administrative assistant coordinator, Gloria, and a PAstudent from [facility]. Patient expressed her irritation and statedthat she [...] inquireabout the AOT and her placement in [place]. She expressed her irritationrelated to her placement issue. She stated, "you do not have to take care of me". The patient states if somehow, she gets AOT and is placed in [place], itwill still not work. The patient also [...] wait and then to get into a [facility]. She has difficultyrealizing the fact it is [...] also has the meeting with state like [facility]. Patientis not happy about it. I told her this is important because they are the majorresource, and they will guide us. She is not making progress.Portions of this section were scribed by Shell Ariza on 11/19/20 at 1820DATE SIGNED: 11/19/20 Electronically SignedTIME SIGNED: 1819 BROOKLYN ONEILL MD Name Value Range Interpretation Code Description Data Stephanie rce(s) Supporting Document(s) ID Date Data Source [id number] 11/18/2020 02:32:00 PM EDT [place] [id number] HEALTH PROGRESS NOTEPATIENT NAME: YARELI HATCH PHYSICIAN: BROOKLYN ONEILL MDAUTHOR: Surendra SMITH,P.ADM. DATE: 10/31/20 MR#: [id number] NOTE DATE: 11/18/20 RM#: 310EVALUATION TIME: 1432 is 20-year-old female, currently single, past psych historyof bipolar disorder, poor impulse control and borderline personality disorderChief complaint concern about her ability to maintain safety and possiblesuicidal thoughtsEvents Since Last EntryYareli was seen today along with the administrative assistant coordinator, Gloria, and a PAstudent from [facility]. She is doing well today. She was [...] angry child she will be send [facility] and not to [facility]. Patient admitsto not having any compassion for [...] has been declined by [facility] agency [facility] to[facility]. I am in the process of working with the AOT coordinator to arrange forgetting the AOT done for her. We really do not have anywhere to send here.Given the fact she was on restraints over the weekend and is on [id number] because she put a pillow over her [...] rce(s) Supporting Document(s) ID Date Data Source [id number] 11/17/2020 11:21:00 PM EDT [address] [address]GXZVPCAN NOTE FOLLOW UPPATIENT NAME: YARELI HATCH PHYSICIAN: BROOKLYN ONEILL MDAUTHOR: Dori SMITH,AlexanderADM. DATE: 10/31/20 MR#: [id number] NOTE DATE: 11/17/20 RM#: 310EVALUATION TIME: 2324 [...] rce(s) Supporting Document(s) ID Date Data Source [id number] 11/15/2020 02:15:00 PM EDT [address] [address]ISBCID HEALTH PROGRESS NOTEPATIENT NAME: YARELI HATCH PHYSICIAN: BROOKLYN ONEILL MDAUTHOR: Surendra SMITH,P.ADM. DATE: 10/31/20 MR#: [id number] NOTE DATE: 11/15/20 RM#: 310EVALUATION TIME: 1416 is 20-year-old female, currently single, past psych historyof bipolar disorder, poor impulse control and borderline personality disorderChief complaint concern about her ability to maintain safety and possiblesuicidal thoughtsEvents Since Last EntryYareli was seen today along with the administrative assistant coordinator, and a PA [facility]fr[facility]. She is in a better mood today. [...] treatment plan. we are awaiting information from [facility] for placement effortsPortions of this section were scribed by Shell Ariza on 11/15/20 at 1415DATE SIGNED: 11/15/20 Electronically SignedTIME SIGNED: 141 BROOKLYN ONEILL MD Name Value Range Interpretation Code Description Data Stephanie rce(s) Supporting Document(s) ID Date Data Source [id number] 11/14/2020 07:41:00 PM EDT [address] HEALTH PROGRESS NOTEPATIENT NAME: YARELI HATCH PHYSICIAN: BROOKLYN ONEILL MDAUTHOR: Surendra SMITH,P.ADM. DATE: 10/31/20 MR#: [id number] NOTE DATE: 11/14/20 RM#: 310EVALUATION TIME: 1948 is 20-year-old female, currently single, past psych historyof bipolar disorder, poor impulse control and borderline personality disorderChief complaint concern about her ability to maintain safety and possiblesuicidal thoughtsEvents Since Last EntryYareli was seen today with administrative assistant coordinator Cata and a PA student. Sheseems to be in better mood today without any hostility or irritableness. Sheasked the same question, what is happening to her AOT. We advised her that theAOT is being pursued and Lorraine is checking with [facility] and she will get back tous. Ever since Zyprexa has been added her mood has improved. She wants to gothe community residence in [place]. The problem remains the uncertainty aboutwhen the [...] to pursue AOT as well as with [facility].Portions of this section were scribed by Shell Ariza on 11/14/20 at 1941DATE SIGNED: 11/14/20 Electronically SignedTIME SIGNED: 1948 BROOKLYN ONEILL MD Name Value Range Interpretation Code Description Data Stephanie rce(s) Supporting Document(s) ID Date Data Source [id number] 11/13/2020 04:22:00 PM EDT [place], [place] [address]MENTAL HEALTH PROGRESS NOTEPATIENT NAME: YARELI HATCH [facility] PHYSICIAN: BROOKLYN ONEILL MDAUTHOR: Surendra SMITH,P.ADM. DATE: 10/31/20 MR#: [id number] NOTE DATE: 11/13/20 RM#: 310EVALUATION TIME: 1624 is 20-year-old female, currently single, past psych historyof bipolar disorder, poor impulse control and borderline personality disorderChief complaint concern about her ability to maintain safety and possiblesuicidal thoughtsEvents Since Last EntryYareli was seen today with the administrative assistant coordinator. She continues to notshow any insight. [...] an opening in a community residence in [place]. Her Thorazinehas been changed to 300 mg [...] rce(s) Supporting Document(s) ID Date Data Source [id number] 11/12/2020 08:02:00 PM EDT [address] [address]CCALIS HEALTH PROGRESS NOTEPATIENT NAME: YARELI HATCH CATTENDING PHYSICIAN: BROOKLYN ONEILL MDAUTHOR: Surendra SMITH,P.ADM. DATE: 10/31/20 MR#: [id number] NOTE DATE: 11/12/20 RM#: 310EVALUATION TIME: 2007 [...] for her. [facility] [place]. Will also work on her coping skill building.Portions of this section were scribed by Shell Ariza on 11/12/20 at 2002DATE SIGNED: 11/12/20 Electronically SignedTIME SIGNED: 2008 BROOKLYN ONEILL MD Name Value Range Interpretation Code Description Data Stephanie rce(s) Supporting Document(s) ID Date Data Source [id number] 11/12/2020 04:37:00 PM EDT [facility] [place] [id number] FOLLOW UPPATIENT NAME: YARELI HATCH CATSALVADOR PHYSICIAN: BROOKLYN ONEILL MDAUTHOR: Jacque Chowdhury. DATE: 10/31/20 MR#: [id number] NOTE DATE: 11/12/20 RM#: 310EVALUATION TIME: 1640 [...] rce(s) Supporting Document(s) ID Date Data Source [id number] 11/11/2020 07:43:00 AM EDT [facility] [place] Exam Number: [id number] Reported By: Maria De Jesus KIM M.D. Signed By: Rakan KIM M.D. Name Value Range Interpretation Code Description Data Stephanie rce(s) Supporting Document(s) ID Date Data Source [id number] 11/10/2020 11:20:00 AM EDT [place] [id number] HEALTH PROGRESS NOTEPATIENT NAME: MAMIEYARELI YA PHYSICIAN: BROOKLYN ONEILL MDAUTHOR: Colleen SMITH,DhruvADM. DATE: 10/31/20 MR#: [id number] NOTE DATE: 11/10/20 RM#: 310EVALUATION TIME: 1121 [...] rce(s) Supporting Document(s) ID Date Data Source [id number] 11/09/2020 11:20:00 AM EDT [address] HEALTH PROGRESS NOTEPATIENT NAME: YARELI HATCH PHYSICIAN: BROOKLYN ONEILL MDAUTHOR: Colleen SMITH,DhruvADM. DATE: 10/31/20 MR#: [id number] NOTE DATE: 11/09/20 RM#: 310EVALUATION TIME: 1121 [...] rce(s) Supporting Document(s) ID Date Data Source [id number] 11/08/2020 01:30:00 PM EDT [facility] [place] [address] HEALTH PROGRESS NOTEPATIENT NAME: YARELI HATCH CATTENGIOVANNY PHYSICIAN: BROOKLYN ONEILL MDAUTHOR: Surendra SMITH,P.ADM. DATE: 10/31/20 MR#: [id number] NOTE DATE: 11/08/20 RM#: 310EVALUATION TIME: 1334 Since Last EntryYareli was seen today along with the administrative assistant coordinator, Gloria, and a PAstudent from [facility]. She apologized for not coming to the [...] and not thinkingcompletely. Lorraine was discussing with [facility] about further treatment options forher as Lorraine [...] rce(s) Supporting Document(s) ID Date Data Source [id number] 11/07/2020 03:12:00 PM EDT [place] [id number] HEALTH PROGRESS NOTEPATIENT NAME: YARELI HATCH CATSALVADOR PHYSICIAN: BROOKLYN ONEILL MDAUTHOR: Surendra SMITH,P.ADM. DATE: 10/31/20 MR#: [id number] NOTE DATE: 11/07/20 RM#: 310EVALUATION TIME: 1512 [...] rce(s) Supporting Document(s) ID Date Data Source [id number] 11/06/2020 01:30:00 PM EDT [address] HEALTH PROGRESS NOTEPATIENT NAME: [facility]ELI [facility]ATCH [facility]: BROOKLYN ONEILL MDAUTHOR: Surendra SMITH,P.ADM. DATE: 10/31/20 MR#: [id number] NOTE DATE: 11/06/20 RM#: 310EVALUATION TIME: 1330 Since Last EntryYareli was seen today along with the administrative assistant coordinator, Gloria, and a PAstudent from [facility]. She continues to be depressed. She is inbetter mood today. She was cooperative durin g the session. She answered all myquestions. Patient states she is forced to talk. She states she is barely ableto manage herself. When I genetic counselor Yareli talk about her life and [...] rce(s) Supporting Document(s) ID Date Data Source [id number] 11/05/2020 03:44:00 PM EDT [address] HEALTH PROGRESS NOTEPATIENT NAME: YARELI HATCH CATTENDING PHYSICIAN: RBOOKLYN ONEILL MDAUTHOR: Surendra SMITH,P.ADM. DATE: 10/31/20 MR#: [id number] NOTE DATE: 11/05/20 RM#: 310EVALUATION TIME: 1546 Since Last EntryYareli was seen today along with the administrative assistant coordinator, Gloria, and a PAstudent from [facility]. She continues to be depressed. She has [...] rce(s) Supporting Document(s) ID Date Data Source [id number] 11/04/2020 09:38:00 AM EDT [facility] [place] [id number] NAME: YARELI HATCH#: [id number] PHYSICIAN: BROOKLYN ONEILL MD ADM. DATE: 10/31/20PROGRESS NOTE DATE: 11/04/20 .#: 310ACCOUNT #: [id number] NOTEIDENTIFICATION: A 20-year-old female with schizoaffective disorder.VITAL SIGNS: Temperature of 97, pulse of 101, respirations 19, blood wzxqizri345/79.SUBJECTIVE: The patient came to the interview room. [...] Dictated: 11/04/2020 09:20:11Date Transcribed: 11/04/2020 08:38:16JV/PUSJob #: [id number]: 11/04/20 0920 Electronically SignedTRANS:11/04/20 0938 FILI CANELA MDTRANS BY:IATDATE SIGNED:11/04/20REPORT COPY TO: Name Value Range Interpretation Code Description Data Stephanie rce(s) Supporting Document(s) ID Date Data Source [id number] 11/03/2020 11:54:00 AM EDT [facility] [address]GWUZYNW NAME: YARELI HATCH#: [id number] PHYSICIAN: BROOKLYN ONEILL MD ADM. DATE: 10/31/20PROGRESS NOTE DATE: 11/03/20 .#: 310ACCOUNT #: [id number] NOTEIDENTIFICATION: A 20-year-old female with schizoaffective disorder.VITAL [...] Dictated: 11/03/2020 09:56:45Date Transcribed: 11/03/2020 10:54:25JV/PUSDelfino #: [id number]: 11/03/20 0956 Electronically SignedTRANS:11/03/20 1154 FILI CANELA MDTRANS BY:KIERRA SIGNED:11/04/20REPORT COPY TO: Name Value Range Interpretation Code Description Data Stephanie rce(s) Supporting Document(s) ID Date Data Source [id number] 11/01/2020 10:43:00 AM EDT [place] [id number] NAME: MAMIEYARELI#: [id number] PHYSICIAN: BROOKLYN ONEILL MD ADM. DATE: 10/31/20ACCOUNT #: [id number] .#: [id number] ASSESSMENTIDENTIFICATION: A 20-year-old female with long history of schizoaffectivedisorder, cluster B personality disorder.CHIEF COMPLAINT: "I am suicidal."REASON FOR ADMISSION: Suicidal ideation.HISTORY OF PRESENT ILLNESS: According to the records and our interview, thepatient was discharged from our service 2 days ago, she was discharged qjsyak93:00 in the morning. She was back in [...] She is living with a friendhere in [place]. The patient stated that she is a [...] 11/01/2020 10:19:56Date Sherrie ranscribed: 11/01/2020 09:43:52JV/PUSRuchib #: [id number]: 11/01/20 1019 Electronically SignedTRANS:11/01/20 1043 FILI CANELA MDTRANS BY:KIERAR SIGNED:11/02/20REPORT COPY TO: Name Value Range Interpretation Code Description Data Stephanie rce(s) Supporting Document(s) ID Date Data Source [id number] 10/31/2020 07:04:00 PM EDT [address] [address]JWQGIOK AND PHYSICALPATIENT NAME: YARELI HATCH MR#: [id number] PHYSICIAN: BOGDAN ALMAGUER MDAUTHOR: Theresa Chowdhury DATE: [...] 17; Temp 98.3; Pulse Ox 96% ; lu3Bfpzkgip ExaminationGeneral Appearance no acute distress, afebrile, alertHead [...] anxious, depressedData ReviewLaboratory DataRecent Labs-48 hours10/29 1156SerologyCOVID-19 (COREDLL) (NEGATIVE) NEGATIVE CancelledLaboratory studies unremarkableAssessment/PlanDiagnosis/Problem1. Major depressive [...] rce(s) Supporting Document(s) ID Date Data Source [id number] 10/29/2020 10:26:00 PM EDT [facility] Name Value Range Interpretation Code Description Data Stephanie rce(s) Supporting Document(s) COVID-19, CORDELL NEGATIVE NEGATIVE N [facility] Methodology: Isothermal Nucleic Acid Amp [...] Emergency Use Authorization. ID Date Data Source [id number] 10/29/2020 09:38:25 PM EDT [facility] Name Value Range Interpretation Code Description Data Stephanie rce(s) Supporting Document(s) Progress Note [facility] ZPYGNw4wZcWRKyCv94/CGEilTWMie0IdTXjzERl8OFwoSQXeT2TbCIU6rL9yAFQ5OYhXCoFkVpLlEPLt [facility] [file] ICAgICAgICAgICAgICAgICAgICAgICAgICAgICAgIC AgICAgICAgICAgICAgICAgICAgICAgICAgICAgICAgICAgICAgICANCiAgICAgICAgICAgICAgICAgIC AgICAgICAgICAgICAgICAgICAgICAgICAgICAgICAgICAgICAgICAgICAgICAgICAgICAgICAgICAgIC AgICAgICAgICAgICAgICAgICAgICANCiAgICAgICAg ICAgICAgICAgICAgICAgICAgICAgICAgICAgICAgICAgICAgICAgICAgICAgICAgICAgICAgICAgICAg ICAgICAgICAgICAgICAgICAgICAgICAgICAgICAgICANCiAgICAgICAgICAgICAgICAgICAgICAgICAg ICAgICAgICAgICAgICAgICAgICAgICAgICAgICAgIC AgICAgICAgICAgICAgICAgICAgICAgICAgICAgICAgICAgICAgICAgICANCiAgICAgICAgICAgICAgIC AgICAgICAgICAgICAgICAgICAgICAgICAgICAgICAgICAgICAgICAgICAgICAgICAgICAgICAgICAgIC AgICAgICAgICAgICAgICAgICAgICAgICANCiAgICAg ICAgICAgICAgICAgICAgICAgICAgICAgICAgICAgICAgICAgICAgICAgICAgICAgICAgICAgICAgICAg ICAgICAgICAgICAgICAgICAgICAgICAgICAgICAgICAgICANCiAgICAgICAgICAgICAgICAgICAgICAg ICAgICAgICAgICAgICAgICAgICAgICAgICAgICAgIC AgICAgICAgICAgICAgICAgICAgICAgICAgICAgICAgICAgICAgICAgICAgICANCiAgICAgICAgICAgIC AgICAgICAgICAgICAgICAgICAgICAgICAgICAgICAgICAgICAgICAgICAgICAgICAgICAgICAgICAgIC AgICAgICAgICAgICAgICAgICAgICAgICAgICANCiAg ICAgICAgICAgICAgICAgICAgICAgICAgICAgICAgICAgICAgICAgICAgICAgICAgICAgICAgICAgICAg ICAgICAgICAgICAgICAgICAgICAgICAgICAgICAgICAgICAgICANCiAgICAgICAgICAgICAgICAgICAg ICAgICAgICAgICAgICAgICAgICAgICAgICAgICAgIC AgICAgICAgICAgICAgICAgICAgICAgICAgICAgICAgICAgICAgICAgICAgICAgICANCjw/pXHsC9gfdB KhxuY9O5zwLj9GKv8HDD7sr5YrCFGbFBjzrfJsZabRMtArBLVcEuoYGyw3MOpeHD0QaCMwO9IiH0NoAV xgDC1GJFLdRAQboRIfCBQjOOEtEiU7OVTtWCrsIY6V eAPdGIgmBVIlHNGqCC1LHCTaX165dqBjXK1NYn4VFdExKR8olv2THIiiRSEvVqePSwx7GFkiZN0QqVTu oFUfOJVoLVUGTxWaZ7ugh2ZjIMppYOABGVteLI5Ez8XbfRCqUCw+He8ULO9ln4GhOJoiSBLwPP8rdc1S YJzAHoVcV5MrwOezACCgh9zxGVPkWR1onYOfCAP1WB CuAO8nHFXVhi0tlLDjjzewXDLUDGI1URMhHdDwWrEuNMYsGPejQHKVYKjCCzThO6Wee3IkItT1PSUwSq HeMCdpVJPzVxY3AR90sEycAG1IKMKtCSGqDL48NJU6AFDfRy9POa1VGpQzUB9oeg9AQXbeQFCsXqdVSr r2SVqmAD0DpPWnR4PhgUTrd9uVEqSeC0FOXWG0XJRc Si0NVFHlMiOkKIYvHHejAH5hBZCbFHKVyPvrghK9IS1RFX4xktKxZH4SHaAsFx5sVi7SFnSmJ1WqL7Fe DYBwKYUVDAraRN9FUViaBZ1oOQ2Ic5IRjYCfhP1toq3MCPQnYLNnLirffp6QSagdJ3R4tCjzZKBqYNrw CQMGFVihPJ4CTHCbLFQ1AIZrXiItHUGRJkFnE46oBT 1QD6Wne94rLrN2IESmSwLhONmxMQ35lPnczmOasWXmyMppXA1UOa4+DQplbmRvYmoNCnhyZWYNCjAgMj WDJhFlYNTjBMPzFSFpCzI5MiAvFd0CNYFlWMWlCMSgEzAsJXEcDBBmBPzzMNIwIVK8WYxhZLZjOXEaOW 0AYrOnCIIiZSg6GSmcVQBsGGJkxu3BBGXdTLNfKZZ7 LdSoFBCwCMDjYGucQXQnKZWcRRCsHZEsNNPmQX7XMnMxMJSvCSLqDkCnYCAiPSHhys7GCPVrPEGjTnx6 IXTsVXPdREIgCZmnUSTbSDBeMGstRLWnKIVpEK8NSsTnCBNoHXBiIoYwJCAvYXGvrt9IQPSeFTPlDVEn MWXcMKGxWZOxBIafJHPnHPW5DODiZQLeMJAwIM4CAb RpLNVyDGQ3PKlsGCWmCEGlxi5IWRZrCPNvLZX8XaHuPWRiSQCcVGxeRTIyDKD5MDm3MRXvEPObOR9IBp QbHWKtYSTcLNqjUJYrWAFzru3IWSKjGPDhIoD9LMDfTNSlEJUkVKksRQFaMYV2XCO4MSLeXZWzWZ3SHu WtOXIbTOx5CQhlKPLjZXZpje5MVTSsNLBrIZHlDJXu AWWvBXEnHTj1rgWgvMUsATq8HZ9MF3MwoiKfUgLCTa4Fi916YRY5XPWoFx3NI8nrYa9wCKZiUFOSPy0H FSs0HzleSRMuLoecDxDcHdA5QzEnWSQwZzZwQHRcVLBrJeL+YWkiLRUmTNWqBSU9MBU4VMC2HlD4SuW6 OlV8XrM6XZH3WY8lJVNEPl8+HEhnwLCkhDroUDKUWgfuZCLRJqGmQW7SFQe= ID Date Data Source [id number] 10/29/2020 06:37:00 PM EDT [facility] [place] Name Value Range Interpretation Code Description Data Stephanie rce(s) Supporting Document(s) SALICYLATE < 1.7 mg/dL 0.0-20.0 [facility] ID Date Data Source [id number] 10/29/2020 06:37:00 PM EDT [facility] [place] Name Value Range Interpretation Code Description Data Stephanie rce(s) Supporting Document(s) ACETAMINOPHEN > 2.0 ug/mL 0-30 [facility] Date Data Source [id number] 10/29/2020 06:37:00 PM EDT [facility] [place] Name Value Range Interpretation Code Description Data Stephanie rce(s) Supporting Document(s) HCG QUAL SERUM Negative Negative N [facility] ID Date Data Source [id number] 10/29/2020 06:37:00 PM EDT [facility] [place] Name Value Range Interpretation Code Description Data Stephanie rce(s) Supporting Document(s) ETOH 0.000 g/dL NONE [facility]ECTED [facility] NONE DETECTED ID Date Data Source [id number] 10/29/2020 06:37:00 PM EDT [facility] [place] Name Value Range Interpretation Code Description Data Stephanie rce(s) Supporting Document(s) GLU 109 mg/dL 70-110 [facility] Patients taking Sulfasalazine may have f alsely depressedGlucose levels. Patients taking Sulfapyridine may havefalsely elevated Glucose levels. Patients should be drawnfor Glucose before the initial administration of eitherdrug. BUN 17 mg/dL 7-23 [facility] CRE 0.658 mg/dL 0.500-1.300 [facility] GFR > 60 mL/min [facility] CHLORIDE 111 mmol/L 99-110 [facility] NA 142 mmol/L 136-147 [facility] POTASSIUM 4.1 mmol/L 3.5-5.1 [facility] TCO2 26 mmol/L 20-33 [facility] ANION GAP 9.1 10.0-20.0 L [facility] CA 8.9 mg/dL 8.3-10.7 [facility] ALKALINE PHOS 121 U/L 45-117 [facility] TP 7.5 g/dL 6.0-7.8 [facility] ALB 3.8 g/dL 3.5-5.0 [facility] ESRD Dialysis patient Albumin reference range: 2.9-4.4 g/dL GL 3.7 g/dL 2.3-3.5 [facility] A/G 1.0 1.0-2.5 [facility] T. BILIRUBIN 0.2 mg/dL 0.1-1.1 [facility] The [employer] Total Bilirubin is n ot recommended forpatients undergoing treatment with eltrombopag (Promacta)due to the potential for falsely elevated results. ALTI 49 U/L 6-54 [facility] Patients taking Sulfasalazine and/or Sul fapyridine may havefalsely depressed ALT levels. Patients should be drawn forALT before the initial administration of either drug. AST 26 U/L 6-38 [facility] Patients taking Sulfasalazine and/or Sul fapyridine may havefalsely depressed AST levels. Patients should be drawn forAST before the initial administration of either drug. ID Date Data Source [id number] 10/29/2020 05:54:00 PM EDT [facility] [place] Name Value Range Interpretation Code Description Data Stephanie rce(s) Supporting Document(s) WBC 7.63 x10E3/uL 4.0-10.5 [facility] RBC 4.24 x10E6/uL 4.20-5.40 [facility] Hemoglobin 12.8 g/dL 12.0-16.0 [facility] Hematocrit 37.6 % 37.0-47.0 [facility] MCV 88.7 fL 81.0-99.0 [facility] MCH 30.2 pg 27.0-31.0 [facility] MCHC 34.0 g/dL 32.7-35.6 [facility] RDW 12.3 % 11.5-14.0 [facility] Platelet count 211 x10E3/uL 150-450 [facility] ital MPV 9.6 fl 6.9-9.5 [facility] Neutrophils 57.8 % 34-64 [facility] Lymphocytes 32.9 % 25-45 N [facility] Monocytes 7.2 % 1.7-10.6 [facility] Eosinophils 1.6 % 0.4-7.0 [facility] Basophils 0.1 % 0.1-2.0 [facility] Imm. Gran. 0.4 % 0.1-2.0 [facility] Abs. Neutro. 4.41 x10E3/uL 1.2-7.6 [facility] [place] Abs. Lymph. 2.51 x10E3/uL 1.0-3.5 [facility] al Abs. Metcalfe. 0.55 x10E3/uL 0.1-1.0 N [facility] l Abs. Eosin. 0.12 x10E3/uL 0.1-0.7 N [facility] al Abs. Baso. 0.01 x10E3/uL 0.0-0.1 N [facility] l Abs. Imm. Gran. 0.03 x10E3/uL 0.0-0.1 [facility] spital ANRBC% 0 % 0 [facility] ID Date Data Source [id number] 10/29/2020 06:28:00 PM EDT [facility] [place] Name Value Range Interpretation Code Description Data Stephanie rce(s) Supporting Document(s) PCP VISTA NEG NEGATIVE [facility] MINIMUM LEVEL OF DETECTION IS 25 ng/ml BENZODIAZEPINES NEG NEGATIVE [facility] al MINIMUM LEVEL OF DETECTION IS 200 ng/ml COCAINE VISTA NEG NEGATIVE [facility] MINIMUM LEVEL OF DETECTION IS 300 ng/ml AMPHETAMINES NEG NEGATIVE [facility] al MINIMUM LEVEL OF DETECTION IS 1000 ng/ml BARBITURATES [facility]G [facility]GAT[facility] CUTOFF CONCENTRATION IS 200 ng/ml CANNABINOIDS NEG NEGATIVE [facility] al CUTOFF CONCENTRATION IS 50 ng/ml METHADONE VISTA NEG NEGATIVE [facility] al MINIMUM LEVEL OF DETECTION IS 300 ng/ml OPIATE VISTA NEG NEGATIVE [facility] MINIMUM DETECTION LEVEL IS 300 ng/ml ID Date Data Source [id number] 10/29/2020 05:57:00 PM EDT [facility] Name Value Range Interpretation Code Description Data Stephanie rce(s) Supporting Document(s) URINE COLOR Yellow [facility] UAPR Turbid [facility] UGLU Negative NEGATIVE [facility] URINE BILIRUBIN Negative NEGATIVE [facility] al UKET Negative NEGATIVE [facility] USG 1.024 1.010-1.025 [facility] UBLO Negative NEGATIVE [facility] UpH 7.0 5.0-8.0 [facility] UPRO Negative Negative [facility] UUB 1.0 mg/dL 0.2-1.0 [facility] UNIT Negative Negative [facility] ULEU Negative Negative [facility] ID Date Data Source [id number] 10/31/2020 10:31:00 AM EDT [facility] Physician DocumentationJoe-Cristina Hinkle edical CenterName: Yareli DuvallAge: 20 yrsSex: FemaleDOB: 2000MRN: [id number] Date: 10/29/2020Time: 17:31Account#: [id number] MD:ED Physician Richie لاعليposition Summary:10/31/20 08:52Hospitalization OrderedHospitalization Status: Inpatient Admission seProvider: Colleen, Bogdan seLocation: Mental Health Unit seCondition: Stable seProblem: an acute exacerbation seSymptoms: have worsened seRoom Assignment: seDiagnosis- Major depressive disorder, recurrent, unspecified seAdditional Information- Admission Type: Inpatient Status. seForms:- Medication Reconciliation se- SBAR se- Medication Reconciliation Form - 2nd Copy seHPI:10/2018:29 This 20 yrs old White Female presents to ER via [facility] eq1uiwf complaints of Psych Problem.19:29 Patient comes the ER today for mental health evaluation. Patient was xk6djrc in the ER for mental health on [...] Smoking status: Patient states was never smoker ofBosideng. ETOH status Denies use of ETOH.- Advance [...] exhibiting self-injurious behavior in the ER not jw8kdwruoatls to verbal de-escalation requiring chemical sedation. Averbal order was given for B-52 while I was busy with another issue.When I went to put the order in the computer, Haldol allergy poppedup however the medication was already given by the nurse. Patientclosely monitored for any evidence of allergic reaction..06:46 Data reviewed: vital signs, nurses notes, lab test result(s). ED qk6ckqcix: Care is endorsed to Dr. العلي at [...] continued to note aggressive behavior and started nn5qhtgit verbal threats to staff including threatening to [...] :26 Order name: COVID-19 PROF; Complete Time: 04:06QGJU49:35 Order name: Diet - Mental Health Tray (call dietary); Complete Time: tl:35 Order name: Belongings List; Complete Time: 09:37 :35 Order name: Document Weight and Height for BMI; Complete Time: 09:37 :35 Order name: Mental Health Level 3; Complete Time: 09:37 :35 Order name: VS q shift; Complete Time: 21:08 :29 Order name: Medically Cleared for Eval by-Psychosocial, Sand Filler th4(.JAN); Complete Time: :02 Order name: EKG.; Complete Time: 22:08 :24 Order name: Mental Health Level 4; Complete Time: 09:2 9 :54 Order name: Restrain Patient; Complete Time: 21:54 kq0Eawsuffqe Medications:10/2018:54 Drug: Seroquel - QUEtiapine 25 mg [quetiapine 25 mg tablet (1 tabs)] pw6Lutzv: PO;22:08 Follow up: Response: No adverse reaction tp:38 Drug: B52 IM - (LORazepam 2 mg, diphenhydrAMINE 50 mg, Haloperidol pc0Fcxcyas 5 mg) Route: IM; Site: right vastus [...] diphenhydrAMINE 50 mg [diphenhydramine 50 mg/mL injection ld6zyykvlno (1 mL)] {Note: given for severe anxiety.} [...] 20 mg [ziprasidone 20 mg/mL (final concentration) pb3qakdmmkmrygwd solution (1 mL)] Route: IM; Site: right [...] Rhythm is regular, Normal Sinus Rhythm. QRS ax5Wqmi is Normal. VT interval is normal. QRS interval is normal. QTinterval is normal. No Q waves. T waves are Normal. No ST changesnoted. Clinical impression: Normal ECG. Interpreted by me.Signatures:Dispatcher [employer] Елена Boogie RN RN klpMartin, Tisa, RN RN tlmElliott, Suzanne, MD MD seHowland, Todd, MD MD jq8HiwloFortunato humphrey RN RN ov0NtjjhmBreonna Marie RN RN nl3AbzrclxAnoop Bowman MD MD dk2DStacy zhou RN af4Mcejnrtjexj: (The following items were deleted from the chart)10/2110:57 11:56 COVID-19 PROFILE+LAB ordered. FIFXLYEF98/2200:32 00:10 LORazepam 4 mg IM once ordered. dk2 dk2 Name Value Range Interpretation Code Description Data Stephanie rce(s) Supporting Document(s) ID Date Data Source [id number] 10/31/2020 10:31:00 AM EDT [facility] Nurse's NotesClaxMoh[facility] Medical Tootie terName: Yareli DuvallAge: 20 yrsSex: FemaleDOB: 2000MRN: [id number] Date: 10/29/2020Time: 17:31Account#: [id number] LO7Ngsildg MD:Diagnosis: Major depressive disorder, recurrent, unspecifiedPresentation:10/2016:31 Presenting complaint: Patient states: "suicidal thought with plan and tlmanxiety:". Coronavirus Screening: Have you been diagnosed withCOVID-19 in the past 30 days? no Are you currently [facility]? no Flu-like symptoms reported in the last 14 days: no.Have you had close contact with confirmed or suspected COVID-19 case?no Do you live in a setting where a large of amount of people live,such as longterm, family care, intermediate, etc? no. Have you traveledto a location with widespread or ongoing COVID-19 community spread [facility]? no Have you traveled internationally or hadcontact with someone that has traveled and has been ill in the past 3weeks? no Have you received the COVID vaccine? No. CommunicationSpeaks Estonian? Yes, is preferred language. 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 ETOH status Denies use of ETOH.- Advance [...] that the patient found a paper clip av6bexhbzwagw on a "window"- she would not give [...] reported that patient had been "digging and lr7lnyqcomdfz herself" and despite constant redirection, MHW had tomanually hold wrists down to prevent her from doing this. She doeshave bilateral superficial scratches to her wrists w/o bleeding. U15trvhnflq ordered and given.05:26 Reassessment: repairer typewriter was called back to room by psa- pt was still ba9swrfpultwl to dig at herself. She was verbally [...] room due to patient harming self by jd8fxtaqhogzl self with her fingernails several attempts made to getpatient to stop, patient asked why she was doing this and she replied"because I'm depressed and anxious" patient offered medication tohelp with her severe anxiety and she accepted MD made aware ofsituation and order recieved..20:39 Reassessment: Patient continues to try to hurt self and report severe xx0acqohky MD called to bedside to assess the situation and additionalmedications ordered..21:55 Reassessment: Despite all other interventions patient continues to jw5try to harm self MD notified and order received to place patient intorestraints at this time for safety.22:48 Reassessment: Patient appears in no apparent distress at this time. wc2Rgomzye released from restraints at 2245, patient reports [...] Report Not Completed. Intervention: Observation Level 3. fx7Oyjfqs health consult is initiated at 20:30. Referral Information:Evaluation referral is generated by the patient himself / herself.The patient was referred for evaluation because expresses suici dalideations with the plan to hang her self or to overdose.20:57 Subjective: The patients chief complaint is Pt presents to the ED as sm8a walk in due to suicidal ideations. Pt was discharged from [facility] three hours before arriving to the ED. [...] inpatient mental health.She has been admitted at [facility], [facility], [facility], and [facility].Pt has a history of Bipolar, Major Depressive, Anxiety. She statesthat she does not take her medications constantly which continuedwhile she was inpatient. Pt reports that she is [facility]. She will be [...] reports history of anxiety, Bipolar Disorder, Depression, bl7eqxdlcz attempt: multiple by overdose Other: Borderline PersonalityDisorder. Mental Health Admissions: multiple admissions. Last was [facility] 10/26/20 and was discharged today Current Outpatient MentalHealth Services: Therapist / Agency: [facility]. Living Environment:Family / Home Support: poor The patient currently lives with his /her significant other, [facility]. The patient is single. Detox /Rehab Admissions: [...] patient status is not currently needed or ph1hgaxibermfo. Consultation: Psych MD informed of patient's status at21:00, ED MD notified of patients status at 21:17. Disposition:Medically cleared for disposition by Dr Argueta. Psychiatric Consultis performed by phone with Dr Almaguer The patient is to be transferredto bed available facility. Legal Status: Patient's legal status [facility] [employer]: 9.37. Commitment papers arecompleted. DSM-V DX [place] I diagnosis: Depression, Unspecified.Insurance Pre-Certification: Not Required. [facility] Admission Criteria:The patient is experiencing suicidal ideation. [...] referralhospital acceptance. The patient is not a flight attendant inflight services or militarydependent. [place] Suicide Severity Rating Scale: Suicidal IdeationRating 5; Intensity of Ideations Rating 25; Suicidal Behavior Rating1.10/2100:37 Narrative Pt was using her sheet and pillow case to wrap around her gc0qrqu. Blankets and pillow case were removed. Pt [...] left arm. She has been redirected multiple sk0kbjhj by PSA and sitter. Security is present. Pt is now currentlywaiting TV with both hands visible.03:58 Narrative Pt is laying down, watching TV. Sitter is present. Safety sm8is maintained.04:43 Narrative Pt started digging at her arm again. PSA and sitter had fv7cnshqatfd to redirect the pt with no success. Nurse and MD was madeaware. B52 was given. Pt has a keisha on her left wrist and a smallermark on her right wrist. Both have been looked at by nurse.19:21 Narrative PSA role handed off to this repairer typewriter at 1900. sm804/2201:04 Narrative Since shift change at 1930 pt has been digging herself, xj2slabwpptuej to leave, yelling and swearing, she has [...] Narrative PSA role handed off to this repairer typewriter at 7:30 AM. kf09:33 Disposition: The patient is admitted to [facility] MHU Patient report is kfgiven to [...] Observation Level Level 4 Sitter needed. Provider gr4Brgkehbp Nils Argueta MD Charge Nurse notified Breonna [...] armband on for positive identification. [facility]. Bed in low position. Call light in reach.18:01 No Physician assisted procedures completed. Labs drawn. Collected by tlmlab. Urine collected. Clean catch specimen.19:13 No apparent distress. Psychosocial Sand Filler. tlm19:13 Sitter at bedside. tlm19:22 Nils Argueta MD is Attending Physician. :18 Notified ED physician of other voice intercept technician pt vomited would like tlmsomething, new orders [...] mg [quetiapine 25 mg tablet (1 tabs)] po6Nbusv: PO;22:08 Follow up: Response: No adverse reaction tp204/2104:38 Drug: B52 IM - (LORazepam 2 mg, diphenhydrAMINE 50 mg, Haloperidol pd8Pejfxzz 5 mg) Route: IM; Site: right vastus [...] diphenhydrAMINE 50 mg [diphenhydramine 50 mg/mL injection rc8ieldrwdq (1 mL)] {Note: given for severe anxiety.} [...] 20 mg [ziprasidone 20 mg/mL (final concentration) fj0mvnmxlknudcla solution (1 mL)] Route: IM; Site: right [...] Moreno PSA PSA kfHowland, Todd, MD MD mb1HospaFortunato humphrey RN RN gf0BgsbucBreonna Marie RN JOSE LUIS wongyj6OowmviaqUsha Adams8Anoop Bowman MD ay5Bejhqflwujr: (The following items were deleted from the [...] Patient reports history of anxiety, Bipolar Disorder, rv2Ydficakdxm, suicide attempt: multiple by overdose Mental HealthAdmissions: multiple admissions. [facility] and wasdischarged today Current Outpati ent [...] appears in no apparent distress at this ik7vpdl. jw5 Name Value Range Interpretation Code Description Data Stephanie rce(s) Supporting Document(s) ID Date Data Source [id number] 10/28/2020 08:29:00 PM EDT [place], [place] [address]PATIENT NAME: YARELI HATCH#: [id number] PHYSICIAN: BROOKLYN ONEILL MDACCOUNT #: [id number] ADM. DATE: 10/26/20PATIENT : 00 DISCH. DATE: [...] rce(s) Supporting Document(s) ID Date Data Source [id number] 10/28/2020 06:30:00 PM EDT [place], [place] [address]MENTAL HEALTH PROGRESS NOTEPATIENT NAME: YARELI HATCH PHYSICIAN: BROOKLYN ONEILL MDAUTHOR: Surendra SMITH,P.ADM. DATE: 10/26/20 MR#: [id number] NOTE DATE: 10/28/20 RM#: [id number] TIME: 183 , , female patient.CC/Hx Present IllnessPt states, "I was and I am feeling suicidal since last week". [facility] herself to the ED for an evaluation.Events Since Last EntryPatient was seen today to assess her improvement. The patient denies any SI/HI.She talked about her friend in [place] with whom she wants to live withuntil residence in [facility].Portions of this section were scribed by Shell Airza on 10/28/20 at 1832ObjectiveVital SignsVital Signs-LastResult Date TimePulse Ox 98 10/28 1140B/P 122/83 10/28 1140Temp 97.5 10/28 1140Pulse 65 10/28 1140Resp 14 10/28 1140Current MedicationsMiscellaneous Read [id number] NAQuetiapine Fumarate (Seroquel) 25 MG 2000 POChlorpromazine [...] will be discharged tomorrow with services in [place].Portions of this section were scribed by Shell Ariza on 10/28/20 at 1830DATE SIGNED: 10/28/20 Electronically SignedTIME SIGNED: 1831 BROOKLYN ONEILL MD Name Value Range Interpretation Code Description Data Stephanie rce(s) Supporting Document(s) ID Date Data Source [id number] 10/28/2020 05:10:00 PM EDT [address] DISCHARGE SUMMARYPATIENT NAME: YARELI HATCH MR#: [id number] PHYSICIAN: BROOKLYN ONEILL MDAUTHOR: Surendra SMITH,P. DATE: 10/26/20 #: [id number] DATE:NntrlxiPtgjiojjuldtii37-vdzz-ohp, , female patient.Chief ComplaintPt states, "I was and I am feeling suicidal since last week". Reports she [facility] week and they didn't admit her so she came to [place] with a friend and walked herself to the ED for an evaluation.Reason for AdmissionIncreased depression and feeling suicidal. SIB, by scratching forearms with apencil when in-patient at [facility] in Aug.History of Presenting IllnessYareli [...] HistoryHas been staying with a friend in [place] that she met while in the MHU.Abuse HistoryAdmits but doesn't discuss today.Legal HistoryCharged for disorderly conduct and harrassement but hasn't been to court yet.This involved staff during a restraint at [facility].Portions of this section were scribed by Shell Ariza on 10/28/20 at 1710[facility]pspan[facility] hospital CourseHospital CourseI saw her on Wednesday and then today. She talked about her multiple overdosesand that [facility] did not want to hospitalize her. So, she [facility] and showed up to our ER. Subsequently, [...] her. Shestates she has a friend in [place] and then wait until residence in [facility].Portions of this section were scribed by Shell Ariza on 10/28/20 at 1803DATE SIGNED: 10/28/20 Electronically SignedTIME SIGNED: 1808 BROOKLYN ONEILL MD Name Value Range Interpretation Code Description Data Stephanie rce(s) Supporting Document(s) ID Date Data Source [id number] 10/27/2020 10:23:00 AM EDT Joe [address] PSYCHIATRIC ASSESSMENTPATIENT NAME: YARELI HATCH MR#: [id number] PHYSICIAN: BROOKLYN ONEILL MDAUTHOR: Frantz Win DATE: 10/26/20 RM#: [id number]-cav, , female patient.Chief ComplaintPt states, "I was and I am feeling suicidal since last week". Reports she wentto [facility] last week and they didn't admit her so she came to [place] tosta with a friend and walked herself to the ED for an evaluation.Reason for AdmissionIncreased depression and feeling suicidal. SIB, by scratching forearms with apencil when in-patient at [facility] in Aug.History of Presenting IllnessYareli is friendly, polite and cooperative today. Reports she feels saferwhen she is here in-patient. [facility] She didn't f/u with her out-patient services and didn'tpick up her prescribed meds from the pharmacy. She reports she notices nodifference on or off her medications.Past Psych/Medical HistoryPsychiatric HistorySignificant psych historyMedical HistoryDeniesDrugs/Alcohol/Tobacco HistoryDeniesHome MedicationsSee Home Medication ListAllergiesCoded Allergies:haloperidol (From HALDOL) (06/15/20)risperidone (08/04/19)Family HistoryFamily history of mental health and substance use.Social HistoryHas been staying with a friend in [place] that she met while in the MHU.Abuse HistoryAdmits but doesn't discuss today.Legal HistoryCharged for disorderly conduct and harrassement but hasn't been to court yet.This involved staff during a restraint at [facility].ExamVital SignsVital Signs-LastResult Date TimePulse Ox 100 10/27 [...] (5.0 - 8.0) 6.0 10/26 07Ur Specific [place] (1.010 - 1.025) 1.027 H 10/26 07Urine [...] to self/othersDATE SIGNED: 10/27/20 Electronically SignedTIME SIGNED: [facility] FRANTZ GIORDANO Name Value Range Interpretation Code Description Data Stephanie rce(s) Supporting Document(s) ID Date Data Source [id number] 10/26/2020 05:21:00 PM EDT [address] [address]SAGJSDB AND PHYSICALPATIENT NAME: YARELI HATCH MR#: [id number] PHYSICIAN: BROOKLYN ONEILL MDAUTHOR: Eliana Ruelas DO DATE: 10/26/20 RM#: [id number] & PHYSICAL DATE: 10/26/20 : 00EVALUATION TIME: 1731HistoryChief Complaint/Admit ReasonSuicidal ideationHistory of Presenting IllnessPatient is a 20 years old [facility]. According to [...] numbness.PsychReports: stress, suicidal ideation.ExamVital SignsVital Signs-24 HRS04 04/089012 1245Temp 97.8Pulse 116Resp 22B/P 131/82 134/79B/P MeanPulse Ox 96O2 DeliveryO2 Flow VdkpHjX3Zzavgobc ExaminationGeneral Appearance no acute distress, afebrile, alert, awake, conversant, facesymmetricalHead atraumatic, normocephalicNeck no swelling, suppleCardiovascular regular rate, no murmur, normal capillary refill, Positive S1and X8Tlhmnpahizh clear to auscultation, no distress, aerating well, [...] bleeding or surrounding erythemanoted.Data ReviewLaboratory DataRecent Labs-48 hours10/26250160 7065 0732ChemistrySodium (136 - 147 mmol/L) 143Potassium (3.5 [...] CloudyUrine pH (5.0 - 8.0) 6.0Ur Specific [place] (1.010 - 1.025) 1.027 HUrine Protein (Negative) NegativeUrine Ketones (NEGATIVE) NegativeUrine Blood (NEGATIVE) NegativeUrine Nitrite (Negative) NegativeUr Bilirubin Confirm (NEGATIVE) NegativeUrine Urobilinogen (0.2 - 1.0 mg/dL) 0.2Urine Leukocytes (Negative) NegativeUrine Glucose (NEGATIVE) NegativeUrine HCG, Qual (Negative) Zphrpkwa69/440057BcsgrtreNBUWL-98 (CORDELL) (NEGATIVE) NEGATIVEAssessment/PlanDiagnosis/Problem1. Suicidal ideationA&P- Patient is [...] rce(s) Supporting Document(s) ID Date Data Source [id number] 10/26/2020 11:14:00 AM EDT [facility] Name Value Range Interpretation Code Description Data Stephanie rce(s) Supporting Document(s) COVID-19, CORDELL NEGATIVE NEGATIVE [facility] Methodology: Isothermal Nucleic Acid Amp lification for [...] Emergency Use Authorization. ID Date Data Source [id number] 10/26/2020 07:42:00 AM EDT [facility] Name Value Range Interpretation Code Description Data Stephanie rce(s) Supporting Document(s) WBC 8.10 x10E3/uL 4.0-10.5 [facility] RBC 4.37 x10E6/uL 4.20-5.40 [facility] Hemoglobin 13.2 g/dL 12.0-16.0 [facility] Hematocrit 39.2 % 37.0-47.0 [facility] MCV 89.7 fL 81.0-99.0 [facility] MCH 30.2 pg 27.0-31.0 [facility] MCHC 33.7 g/dL 32.7-35.6 [facility] RDW 11.9 % 11.5-14.0 [facility] Platelet count 204 x10E3/uL 150-450 N [facility] ital MPV 9.6 fl 6.9-9.5 [facility] Neutrophils 67.3 % 34-64 [facility] Lymphocytes 23.3 % 25-45 L [facility] Monocytes 7.3 % 1.7-10.6 [facility] Eosinophils 1.5 % 0.4-7.0 [facility] Basophils 0.1 % 0.1-2.0 [facility] Imm. Gran. 0.5 % 0.1-2.0 [facility] Abs. Neutro. 5.45 x10E3/uL 1.2-7.6 [facility] Abs. Lymph. 1.89 x10E3/uL 1.0-3.5 [facility] Abs. Metcalfe. 0.59 x10E3/uL 0.1-1.0 [facility] Abs. Eosin. 0.12 x10E3/uL 0.1-0.7 [facility] Abs. Baso. 0.01 x10E3/uL 0.0-0.1 [facility] Abs. Imm. Gran. 0.04 x10E3/uL 0.0-0.1 [facility] spital ANRBC% 0 % 0 [facility] ID Date Data Source [id number] 10/26/2020 08:20:00 AM EDT [facility] Name Value Range Interpretation Code Description Data Stephanie rce(s) Supporting Document(s) SALICYLATE < 1.7 mg/dL 0.0-20.0 [facility] ID Date Data Source [id number] 10/26/2020 08:20:00 AM EDT [facility] Name Value Range Interpretation Code Description Data Stephanie rce(s)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 01:36Account#: [id number] 3Polga MD: NONE, - Per PatientDiagnosis: Bipolar disorder, unspecifiedPresentation:06/501:37 Presenting complaint: Patient brought in by [facility] officer Anatoly on a lc5qyfa up order for mental health evaluation. Patient reports feelingsuicidal with a plan to strangle self or overdose on medicationdepressed and being homeless. Coronavirus Screening: Have youtraveled internationally or had contact with someone that hastraveled and has been ill in the past 3 weeks? no Have you traveledto a location with widespread or ongoing COVID-19 community spread [facility]? no Flu-like symptoms reported in the [...] Arrival: Police jw501:40 Acuity Assignment: Triage 2 in6Zkmkky Assessment:01:47 General: Appears in no apparent distress, Behavior is cooperative. xf8Vcplus Screening: (1)Signs/symptoms infection Sepsis is notsuspected. Pain: [...] aware ofpositive screen, suicide precautions implemented. 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 hydroxyzine pamoate [...] Sm[facility] status: [facility] Patient/guardian denies using street drugs, IV drugs, ETOHstatus Denies use of ETOH.- Advance Directives:: None.Screenin:42 Abuse screen: Denies threats or abuse. Denies injuries from another. qg7Uuxthaknomo screening: No deficits noted. Offer of HIV testing:patient was previously offered screening. Fall Risk None identified.Assessment:05:43 Reassessment: see triage assessment. zh5Zxeqafcysqxd:02:54 Intervention: Observation Level 3. Mental health consult is initiated grat 02:54.03:13 Referral Information: Evaluation referral is generated by a police gragency: SELINA. The patient was referred for evaluation because pt hadbeen at the [facility] center ([facility]) sinceyesterday afternoon. She reports [...] and off'. Pt grreports going to the [facility] center multiple times recently. Ptwas there today, [...] family since coming out as transgendered also ke2549. Pt has an extensive psychiatric hx with multipleh ospitalizations throughout childhood, adolescence, and adulthood. Ptwas recently inpatient on [facility] from February to May 2020. Ptwas discharged on 05/15/20 to supportive housing in [place]. Pt reportsgoing to the crisis center almost [...] a young age. [facility] to May 2020.Current Outpatient Mental Health Services: Psychiatrist / Agency:[facility] in [place]. Therapist / Agency: Hilda/ Мария. Living Environment: Family / Home Support: Poor. Ptreports no contact with adoptive family. Has minimal contact withbiological parents; states "they don't accept me". The patientcurrently lives "homeless". Had been in supportive housing/ communityresidence in [place].03:24 Patient presents to Emergency Department with the [...] Dr Canela. The [facility] Patientreport is given to Malu Bowman RN. Legal Status: Patient's legalstatus will be Emergency: 9.39. Commitment papers are completed. Pthas been provided with a copy of legal status and rights.04:09 DSM-V DX [place] I diagnosis: Bipolar D/O, Unspecified. gr04:09 Insurance Pre-Certification: Not Required. [facility] Admission Criteria: grThe patient is experiencing suicidal [...] significant dosage adjustments. [facility] Transition of care to Pt will be transferred to [facility] by PSA andsecurity. The patient is not a flight attendant inflight services or dependent.[place] Suicide Severity Rating Scale: Suicidal Ideation Rating 5;Intensity of Ideations Rating 25; Suicidal Behavior Rating 1.Psych:01:51 Subjective: Patient's mood is sad, hopeless, Delusions are denied, nz6Yneqvytyzlcmfm are denied Having thoughts of suicide. Plan forsuicide is to strangle self or overdose on medications. Objective:Patient is cooperative, Speech is normal, Affect is appropriate,Patient has mutilated themselves by superficial cuts to left arm.02:04 Interventions: Removed personal items and placed in bag. Patient mt9ghxwdi in hospital gown. Searched person for dangerous items. Urinecollected and sent for urine drug test. Observation Level Level 3Sitter needed. Provider notified. Nils Argueta MD Charge nursenotified. Fortunato Mrak RN Level 3 order placed.Vital Signs:01:48 BP [...] armband on for positive identification. Placed in qn6wvxn. Bed in low position. Sitter at bedside.Administered Medications:No medications were administeredOutcome:04:14 Decision to Hospitalize by Provider. th405:25 Disposition: Admitted to Psych cm405:25 Condition: stable.05:25 Instructed on need for admit.05:25 Discharge Assessment: Patient verbalized understanding of dispositioninstructions. Patient has no functional deficits.05:47 Patient left the ED. ds6Vrhnyhwwwh:Rose Paulino, PSA PSA Nils Berrios MD MD ft0Qxpom, JOSE LUIS Bucio RN uz3MgbnrlsfdWendy quintana RN RN cm4 Name Value Range Interpretation Code Description Data Stephanie rce(s) Supporting Document(s) ID Date Data Source [id number] 05/16/2020 01:20:[address] DISCHARGE SUMMARYPATIENT NAME: YARELI HATCH MR#: [id number] PHYSICIAN: BOGDAN ALMAGUER MDAUTHOR: oClleen SMITH,Bogdan DATE: 02/15/20 RM#: [id number] DATE:HistoryIdentificationPatient is [...] has been staying in a hotel in [place] aftersigning her self out of [facility] in November of 2019. Pt reports she called a cab herselfto bring her here. Pt states she was inpatient at [facility] for a month and wasdischarged [...] is allergic to Haldol but thedoctor in [facility] had put her on the medication any ways. Pt reports ahistory of bipolar, borderline personality disorder, and gender identitydisorder. Pt has a history of inpatient treatment at [facility], [facility] Pt was last inpatient to [facility] 12/02/2019. Pt reports when recently hada suicide attempt a few days after being dicharged from [facility] last, she statedshe had overdosed on [...] arrangement as she [facility] for the [...] out regarding staying [place] motelin the [place] area as she signed herself out from [facility] on November 2019. Patientstated that she [...] well. Onepoint [facility] and she was rejected by them due toexpressing that they think that the patient has a more behavioral issues andwould not be benefited with inpatient mental health treatment. Later onpatient was staying on the unit as we were waiting for a safe place fordischarge and referral being sent to different places such as [facility], [facility] as well. Later on patient was [...] forward to fill out some paperwork at [facility] as well. She alsoappreciated the service [...] the following new medications:Loratadine* (Claritin*) 10 MG MYPEMT60 MILLIGRAM Orally DAILYQty = 14Refills = 1TOPIRAMATE (TOPAMAX) 25 MG NQKNQX31 MILLIGRAM Orally TWICE DAILYQty = 20Refills = 1Fluoxetine* (Prozac*) 20 MG QWCKAHM46 MILLIGRAM Orally DAILYQty = 20Refills = 1HydrOXYzine (Atarax*) 50 MG AIGSYQH98 MILLIGRAM Orally TWICE DAILY as needed for AnxietyQty = 20Refills = 1ARIPIPRAZOLE (ABILIFY MAINTENA) 400 MG SUSER.LPYU156 MILLIGRAM Intramuscularly Q87RFhq = 1No RefillsInstruction s:Last IM injection received on May 03, 2020Discharge Activity: As toleratedDischarge diet: Low Fat/Low CholesterolFollow-upFollow up with your Primary care physicianFollow-up with therapist and psychiatrist as recommendedAlso recommended outpatient chemical dependencyReferralsOrdered ReferralsOphthalmology 07/23/20[facility] ([phone])located at [address] in [place] July 23 at 11:30 am.Internal Medicine 06/03/20In person primary care appointment [facility] ([phone]) [facility] in [place] on June 03 at 2:00 pm with [facility] [place] [address] In person appointment at [facility] ([phone]) locatedat [address] in [place] on May 23 at 2:00 pm with Hilda.Yareli will need to attend thisappointment in order to receive herAbilify Maintenna injection on 05/31.[facility] [place] [address] In person appointment at [facility] ([phone])located at [address] [place] [address] in [place] May 29 at 11:00 amwith Yareli will need to attendthis appointment in order to receive herAbilify Maintenna injection on 05/31.DATE SIGNED: 05/16/20 Electronically SignedTIME SIGNED: 1326 BOGDAN ALMAGUER MD Name Value Range Interpretation Code Description Data Stephanie rce(s) Supporting Document(s) ID Date Data Source [id number] 05/16/2020 09:41:00 AM EST [address] [id number] NAME: MAMIEYARELIZOIE Jensen#: [id number] PHYSICIAN: BOGDAN ALMAGUER MDACHICO #: [id number] ADM. DATE: 02/15/20PATIENT : 00 DISCH. DATE: [50}DISCHARGE SUMMARYMHU discharge planNicotine Replacement TherapySmoking Status Never smokerPrescribed at discharge Rx not [facility]/Drug DisorderAlcohol or Drug Disorder counseling prescribedPersonal Care InstructionsDischarge Activity: As toleratedDischarge diet: Low Fat/Low CholesterolFollow Up CareFollow Up:Follow up with your Primary care physicianFollow-up with therapist and psychiatrist as recommendedAlso recommended outpatient chemical dependencyPriority ItemsUrgent/Important items t hat need to be addressed at primary care follow-upappointmentDischarge InformationDISCHARGE INFORMATION* Thank you [facility] and allowing us toserve you* Our Goal is to provide the highest quality of care.* This discharge information is to help you better understand your diagnosisand medication* Avoid taking xmms-qxl-kzygssr medicines unless approved by your physician.* Take your medications as prescribed. DO NOT stop any medications unlessapproved first* Weigh yourself daily. Report any gain of 5 lbs in a week* 24 Hour Crisis HOTLINE available: Call Reachout at [phone]* Chem. Dependency: Walk in [facility] [place] ([phone]) and [place] ([phone]) anytime Wednesday thru Wednesday 8 to 10am. [facility] ([phone]) anytimeMonday thru Wednesday 8 to 10am. [facility] ([phone]) Wednesday or Wednesday from 8to 10am (Bring $30 to [facility]) SMOKIN G CESSATION* Smoking is dangerous to your health. It delays the healing process, andworks against your medications. Not smoking will improve your health* Our hospital participates with the Opt-to-Quit program. You will be contactedafter discharge by the [facility] Smoker's Quitline for support with tobaccocessation. You have the option once contacted to refuse this service.* You can also go online to www.LSEO. Free nicotine replacementsare available ___Attention* You should [...] rce(s) Supporting Document(s) ID Date Data Source [id number] 05/15/2020 01:17:00 PM KARMEN Douglas [address] [address] PROGRESS NOTEPATIENT NAME: YARELI HATCH PHYSICIAN: BOGDAN ALMAGUER, MDAUTHOR: Colleen SMITH,Sarahy. DATE: 02/15/20 MR#: [id number] NOTE DATE: 05/15/20 RM#: [id number] TIME: 1319 [...] rce(s) Supporting Document(s) ID Date Data Source [id number] 05/14/2020 11:49:[address] HEALTH PROGRESS NOTEPATIENT NAME: YARELI HATCH PHYSICIAN: BOGDAN ALMAGUER MDAUTHOR: Colleen SMITH,DhruvADM. DATE: 02/15/20 MR#: [id number] NOTE DATE: 05/14/20 RM#: [id number] TIME: 1151 is 19-year-old female, currently single, lives in a motel,past psych history of bipolar disorderCC/Hx Present IllnessThe patient was referred for evaluation because pt having suicidal ideations.Events Since Last EntryPatient reporting feeling somewhat better, she is mostly focused on herdischarge plan and she is about to be discharged this prior to going to [facility]. Patient denied having any suicidal, [...] rce(s) Supporting Document(s) ID Date Data Source [id number] 05/13/2020 01:19:00 PM KARMEN heaton [facility] [place], [place] [address]MENTAL HEALTH PROGRESS NOTEPATIENT NAME: YARELI HATCHGIOVANNY PHYSICIAN: BOGDAN ALMAGUER, MDAUTHOR: Colleen SMITH,DhruvADM. DATE: 02/15/20 MR#: [id number] NOTE DATE: 05/13/20 RM#: [id number] TIME: 1322 [...] QHSPRN PRN POExaminationMusculoskeletalGait normalStation normalResultsLaboratory DataRecent Labs-24 [id number] (CORDELL) PendingResults Ordered/ReviewedLab Tests reviewedAssessment/PlanDiagnosis1. Major depressive disorderStatus Acute2. Bipolar affective disorder3. Borderline personality disor derCoordination of care provided with nursing staff, treatment team, social work,physician's, familyRisk/benefits discussed side effectsJustification for continued stay danger to self/othersDATE SIGNED: 05/13/20 Electronically SignedTIME SIGNED: 1322 BOGDAN ALMAGUER MD Name Value Range Interpretation Code Description Data Stephanie rce(s) Supporting Document(s) ID Date Data Source [id number] 05/13/2020 11:14:00 AM EST [facility] Name Value Range Interpretation Code Description Data Stephanie rce(s) Supporting Document(s) SARS coronavirus 2 RNA [facility] This lab [facility] and reported by [facility]. ID Date Data Source [id number] 05/14/2020 04:07:00 PM EST [facility] Performed at: RN - [facility] [address] [id number] Director: Samira Cortez MD, Phone: [phone] Name Value Range Interpretation Code Description Data Stephanie rce(s) Supporting Document(s) SARS-CoV-2, CORDELL Not Detected Not Detected [facility] This nucleic acid amplification test was developed [...] SARS-CoV-2 virusand/or diagnosis of COVID-19 infection under tddecbw592(b)(1) of the Act, 21 U.S.C. 360bbb-3(b) (1), [...] Acid Amplification (CORDELL) ID Date Data Source [id number] 05/10/2020 11:10:00 AM EDT [address] HEALTH PROGRESS NOTEPATIENT NAME: [facility] PH[facility]IAN: BOGDAN ALMAGUER MDAUTHOR: Colleen SMITH,DhruvADM. DATE: 02/15/20 MR#: [id number] NOTE DATE: 05/10/20 RM#: [id number] TIME: 1113 [...] QHSPRN PRN POExaminationMusculoskeletalGait normalStation normalResultsLaboratory DataRecent Labs-24 hours/[id number] (136 - 147 mmol/L) 141Potassium (3.5 - [...] Name Value Range Interpretation Code Description Data [facility] rce(s) Supporting Document(s) ID Date Data Source [id number] 05/09/2020 05:28:00 PM EDT [facility] Name Value Range Interpretation Code Description Data [facility] rce(s) Supporting Document(s) GLU 80 mg/dL 70-110 [facility] Patients taking Sulfasalazine may have f alsely depressedGlucose levels. Patients taking Sulfapyridine may havefalsely elevated Glucose levels. Patients should be drawnfor Glucose before the initial administration of eitherdrug. BUN 12 mg/dL 7-23 [facility] CRE 0.502 mg/dL 0.500-1.300 [facility] CHLORIDE 109 mmol/L 99-110 [facility] NA 141 mmol/L 136-147 [facility] POTASSIUM 4.5 mmol/L 3.5-5.1 [facility] TCO2 26 mmol/L 20-33 [facility] ANION GAP 10.5 10.0-20.0 [facility] CA 9.1 mg/dL 8.3-10.7 [facility] ALKALINE PHOS 142 U/L 82-169 [facility] TP 7.7 g/dL 6.0-7.8 [facility] ALB 4.0 g/dL 3.5-5.0 [facility] ESRD Dialysis patient Albumin reference range: 2.9-4.4 g/dL GL 3.7 g/dL 2.3-3.5 [facility] A/G 1.1 1.0-2.5 [facility] T. BILIRUBIN 0.4 mg/dL 0.1-1.1 [facility] The Dimension Mason Total Bilirubin is n ot recommended forpatients undergoing treatment with eltrombopag (Promacta)due to the potential for falsely elevated results. ALTI 57 U/L 6-54 [facility] Patients taking Sulfasalazine and/or Sul fapyridine may havefalsely depressed ALT levels. Patients should be drawn forALT before the initial administration of either drug. AST 30 U/L 6-38 [facility] Patients taking Sulfasalazine and/or Sul fapyridine may havefalsely depressed AST levels. Patients should be drawn forAST before the initial administration of either drug. ID Date Data Source [id number] 05/09/2020 05:00:00 PM EDT [facility] Name Value Range Interpretation Code Description Data Stephanie rce(s) Supporting Document(s) WBC 7.62 x10E3/uL 4.0-10.5 [facility] RBC 4.40 x10E6/uL 4.20-5.40 [facility] Hemoglobin 12.7 g/dL 12.0-16.0 [facility] Hematocrit 38.7 % 37.0-47.0 [facility] MCV 88.0 fL 81.0-99.0 [facility] MCH 28.9 pg 27.0-31.0 [facility] MCHC 32.8 g/dL 32.7-35.6 [facility] RDW 12.7 % 11.5-14.0 [facility] Platelet count 254 x10E3/uL 150-450 [facility] ital MPV 9.9 fl 6.9-9.5 [facility] Neutrophils 58.1 % 34-64 [facility] Lymphocytes 34.1 % 25-45 [facility] Monocytes 6.4 % 1.7-10.6 [facility] Eosinophils 0.9 % 0.4-7.0 [facility] Basophils 0.1 % 0.1-2.0 [facility] Imm. Gran. 0.4 % 0.1-2.0 [facility] Abs. Neutro. 4.42 x10E3/uL 1.2-7.6 [facility] Abs. Lymph. 2.60 x10E3/uL 1.0-3.5 [facility] Abs. Metcalfe. 0.49 x10E3/uL 0.1-1.0 [facility] Abs. Eosin. 0.07 x10E3/uL 0.1-0.7 [facility] Abs. Baso. 0.01 x10E3/uL 0.0-0.1 [facility] Abs. Imm. Gran. 0.03 x10E3/uL 0.0-0.1 [facility] ANRBC% 0 % 0 [facility] ID Date Data Source [id number] 05/09/2020 01:04:00 PM EDT [address] HEALTH PROGRESS NOTEPATIENT NAME: YARELI HATCH [facility] PHYSICIAN: BOGDAN ALMAGUER, MDAUTHOR: Colleen SMITH,DhruvADM. DATE: 02/15/20 MR#: [id number] NOTE DATE: 05/09/20 RM#: [id number] TIME: 1307 [...] rce(s) Supporting Document(s) ID Date Data Source [id number] 05/08/2020 12:46:00 PM EDT [place] [address]MENTAL HEALTH PROGRESS NOTEPATIENT NAME: YARELI HATCH PHYSICIAN: BOGDAN ALMAGUER MDAUTHOR: Colleen SMITH,DhruvADM. DATE: 02/15/20 MR#: [id number] NOTE DATE: 05/08/20 RM#: [id number] TIME: 1248 [...] rce(s) Supporting Document(s) ID Date Data Source [id number] 05/07/2020 01:49:00 PM EDT [facility] PROGRESS NOTEPATIENT NAME: Y[facility]ELI HATCH [facility] PHYSICIAN: BOGDAN ALMAGUER MDAUTHOR: Colleen SMITH,Sarahy. DATE: 02/15/20 MR#: [id number] NOTE DATE: 05/07/20 RM#: [id number] TIME: 1351 [...] rce(s) Supporting Document(s) ID Date Data Source [id number] 05/06/2020 01:32:00 PM EDT [address] HEALTH PROGRESS NOTEPATIENT NAME: YARELI HATCH PHYSICIAN: BOGDAN ALMAGUER MDAUTHOR: Colleen SMITH,DhruvADM. DATE: 02/15/20 MR#: [id number] NOTE DATE: 05/06/20 RM#: [id number] TIME: 1335 is 19-year-old female, currently single, lives in a motel,past psych history of bipolar disorderCC/Hx Present IllnessThe patient was referred for evaluation because pt having suicidal ideations.Events Since Last EntryPatient was seen along with sitter as well as administrative assistant coordinator on otherside, patient was resting comfortable, [...] rce(s) Supporting Document(s) ID Date Data Source [id number] 05/05/2020 11:49:00 PM EDT [address] [id number] NOTE FOLLOW UPPATIENT NAME: MAMIEYARELI CATTENGIOVANNY PHYSICIAN: BOGDAN ALMAGUER MDAUTHOR: Dori SMITH,Lea. DATE: 02/15/20 MR#: [id number] NOTE DATE: 05/05/20 RM#: [id number] TIME: 13 [...] rce(s) Supporting Document(s) ID Date Data Source [id number] 05/05/2020 02:12:00 AM EDT [facility] Name Value Range Interpretation Code Description Data Stephnaie rce(s) Supporting Document(s) MAGNESIUM 2.2 mg/dL 1.6-2.6 [facility] ID Date Data Source [id number] 05/05/2020 02:12:00 AM EDT [facility] Name Value Range Interpretation Code Description Data Stephanie rce(s) Supporting Document(s) ALLEN 4.5 mg/dL 2.5-4.5 [facility] ID Date Data Source [id number] 05/05/2020 02:12:00 AM EDT [facility] Name Value Range Interpretation Code Description Data Stephanie rce(s) Supporting Document(s) GLU 97 mg/dL 70-110 [facility] Patients taking Sulfasalazine may have f alsely depressedGlucose levels. Patients taking Sulfapyridine may havefalsely elevated Glucose levels. Patients should be drawnfor Glucose before the initial administration of eitherdrug. BUN 18 mg/dL 7-23 [facility] CRE 0.571 mg/dL 0.500-1.300 [facility] CHLORIDE 109 mmol/L 99-110 [facility] NA 142 mmol/L 136-147 [facility] POTASSIUM 4.3 mmol/L 3.5-5.1 [facility] TCO2 27 mmol/L 20-33 [facility] ANION GAP 10.3 10.0-20.0 [facility] CA 8.7 mg/dL 8.3-10.7 [facility] ALKALINE PHOS 126 U/L 82-169 [facility] TP 7.1 g/dL 6.0-7.8 [facility] ALB 3.6 g/dL 3.5-5.0 [facility] ESRD Dialysis patient Albumin reference range: 2.9-4.4 g/dL GL 3.5 g/dL 2.3-3.5 [facility] A/G 1.0 1.0-2.5 [facility] T. BILIRUBIN 0.3 mg/dL 0.1-1.1 [facility] The Dimension Mason Total Bilirubin is n ot recommended forpatients undergoing treatment with eltrombopag (Promacta)due to the potential for falsely elevated results. ALTI 47 U/L 6-54 [facility] Patients taking Sulfasalazine and/or Sul fapyridine may havefalsely depressed ALT levels. Patients should be drawn forALT before the initial administration of either drug. AST 18 U/L 6-38 [facility] Patients taking Sulfasalazine and/or Sul fapyridine may havefalsely depressed AST levels. Patients should be drawn forAST before the initial administration of either drug. ID Date Data Source [id number] 05/05/2020 01:52:00 AM EDT [facility] Name Value Range Interpretation Code Description Data Stephanie rce(s) Supporting Document(s) WBC 8.06 x10E3/uL 4.0-10.5 [facility] RBC 4.09 x10E6/uL 4.20-5.40 [facility] Hemoglobin 11.8 g/dL 12.0-16.0 [facility] Hematocrit 36.6 % 37.0-47.0 [facility] MCV 89.5 fL 81.0-99.0 [facility] MCH 28.9 pg 27.0-31.0 [facility] MCHC 32.2 g/dL 32.7-35.6 [facility] RDW 12.6 % 11.5-14.0 [facility] Platelet count 226 x10E3/uL 150-450 N [facility] ital MPV 9.6 fl 6.9-9.5 [facility] Neutrophils 51.7 % 34-64 [facility] [facility] Lymphocytes 38.1 % 25-45 [facility] Monocytes 8.4 % 1.7-10.6 [facility] Eosinophils 1.1 % 0.4-7.0 [facility] Basophils 0.2 % 0.1-2.0 [facility] Imm. Gran. 0.5 % 0.1-2.0 [facility] Abs. Neutro. 4.16 x10E3/uL 1.2-7.6 [facility] Abs. Lymph. 3.07 x10E3/uL 1.0-3.5 [facility] Abs. [place]calfe. 0.68 x10E3/uL 0.1-1.0 [facility] Abs. Eosin. 0.09 x10E3/uL 0.1-0.7 [facility] Abs. Baso. 0.02 x10E3/uL 0.0-0.1 [facility] Abs. Imm. Gran. 0.04 x10E3/uL 0.0-0.1 [facility] ANRBC% 0 % 0 [facility] ID Date Data Source [id number] 05/05/2020 12:57:00 AM EDT [facility] [address] [id number] NOTE FOLLOW UPPATIENT NAME: YARELI HATCH PHYSICIAN: BOGDAN ALMAGUER MDAUTHOR: Dori SMITH,[facility]. DATE: 02/15/20 MR#: [id number] NOTE DATE: 05/05/20 RM#: 317EVALUATION TIME: 0117 [...] rce(s) Supporting Document(s) ID Date Data Source [id number] 05/03/2020 01:24:00 PM EDT [address] HEALTH PROGRESS NOTEPATIENT NAME: YARELI HATCH PHYSICIAN: BOGDAN ALMAGUER MDAUTHOR: Colleen SMITH,DhruvADM. DATE: 02/15/20 MR#: [id number] NOTE DATE: 05/03/20 RM#: 317EVALUATION TIME: 1325 [...] rce(s) Supporting Document(s) ID Date Data Source [id number] 05/02/2020 01:53:00 PM EDT [facility] HEALTH PROGRESS NOTEPATIENT NAME: YARELI HATCH PHYSICIAN: BOGDAN ALMAGUER MDAUTHOR: Colleen SMITH,DhruvAPUJA. DATE: 02/15/20 MR#: [id number] NOTE DATE: 05/02/20 RM#: 317EVALUATION TIME: 1355 [...] current treatment plan, discussed [facility]reg[facility] as well as increasing further Topamax [...] rce(s) Supporting Document(s) ID Date Data Source [id number] 05/01/2020 01:01:00 PM EDT [address] HEALTH PROGRESS NOTEPATIENT NAME: YARELI HATCH PHYSICIAN: BOGDAN ALMAGUER MDAUTHOR: Colleen SMITH,DhruvADM. DATE: 02/15/20 MR#: [id number] NOTE DATE: 05/01/20 RM#: 317EVALUATION TIME: 1303 [...] rce(s) Supporting Document(s) ID Date Data Source [id number] 04/30/2020 01:52:00 PM EDT [place] [address] HEALTH PROGRESS NOTEPATIENT NAME: YARELI HATCH PHYSICIAN: BOGDAN ALMAGUER MDAUTHOR: Colleen SMITH,DhruvADM. DATE: 02/15/20 MR#: [id number] NOTE DATE: 04/30/20 RM#: 317EVALUATION TIME: 1355 [...] rce(s) Supporting Document(s) ID Date Data Source [id number] 04/29/2020 11:16:00 AM EDT [facility] HEALTH PROGRESS NOTEPATIENT NAME: YARELI HATCH CATSALVADOR PHYSICIAN: BOGDAN ALMAGUER MDAUTHOR: Colleen SMITH,DhruvADM. DATE: 02/15/20 MR#: [id number] NOTE DATE: 04/29/20 RM#: 317EVALUATION TIME: 1120 [...] current safe discharge plan regarding going to [facility] as well.Patient denied having any medication side [...] rce(s) Supporting Document(s) ID Date Data Source [id number] 04/26/2020 01:20:00 PM EDT [address] HEALTH PROGRESS NOTEPATIENT NAME: YARELI HATCH PHYSICIAN: BOGDAN ALMAGUER MDAUTHOR: Colleen SMITH,DhruvADM. DATE: 02/15/20 MR#: [id number] NOTE DATE: 04/26/20 RM#: 317EVALUATION TIME: 1323 [...] current treatment plan which we discussed with [facility] staff regarding patient to be called Rigo [...] rce(s) Supporting Document(s) ID Date Data Source [id number] 04/25/2020 01:43:00 PM EDT [address] HEALTH PROGRESS NOTEPATIENT NAME: YARELI HATCH PHYSICIAN: BOGDAN ALMAGUER MDAUTHOR: Colleen SMITH,DhruvADM. DATE: 02/15/20 MR#: [id number] NOTE DATE: 04/25/20 RM#: 317EVALUATION TIME: 1345 [...] rce(s) Supporting Document(s) ID Date Data Source [id number] 04/24/2020 02:01:00 PM EDT [facility] [address] HEALTH PROGRESS NOTEPATIENT NAME: YARELI HATCHDING PHYSICIAN: BOGDAN ALMAGUER MDAUTHOR: Colleen SMITH,DhruvADM. DATE: 02/15/20 MR#: [id number] NOTE DATE: 04/24/20 RM#: 317EVALUATION TIME: 1404 [...] rce(s) Supporting Document(s) ID Date Data Source [id number] 04/23/2020 01:23:00 PM EDT [address] PROGRESS NOTEPATIENT NAME: YARELI HATCH PHYSICIAN: BOGDAN ALMAGUER MDAUTHOR: Colleen SMITH,DhruvADM. DATE: 02/15/20 MR#: [id number] NOTE DATE: 04/23/20 RM#: 317EVALUATION TIME: 1326 [...] patient later on agreedfor further treatment to [facility] as well. Patient also reporting medicationsworking okay, [...] current treatment plan, discussed with the patientregarding [facility] transfer for further treatment, continuing current medication [...] rce(s) Supporting Document(s) ID Date Data Source [id number] 04/22/2020 09:56:00 AM EDT [address] HEALTH PROGRESS NOTEPATIENT NAME: YARELI HATCH PHYSICIAN: BOGDAN ALMAGUER MDAUTHOR: Ana Win. DATE: 02/15/20 MR#: [id number] NOTE DATE: 04/22/20 #: 317EVALUATION TIME: 1008 [...] (Clotrimazole) 0 DIRECTED TOPNasal Lubricant (Saline Nasal Wadsworth) 0 Q3HPRN PRN NASALExaminationMusculoskeletalGait normalStation normalMental Status [...] rce(s) Supporting Document(s) ID Date Data Source [id number] 04/19/2020 01:13:00 PM EDT [address] HEALTH PROGRESS NOTEPATIENT NAME: YARELI HATCH PHYSICIAN: BOGDAN ALMAGUER, MDAUTHOR: Colleen SMITH,DhruvADM. DATE: 02/15/20 MR#: [id number] NOTE DATE: 04/19/20 RM#: 317EVALUATION TIME: 1315 [...] (Clotrimazole) 0 DIRECTED TOPNasal Lubricant (Saline Nasal Wadsworth) 0 Q3HPRN PRN NASALExaminationMusculoskeletalGait normalStation normalResultsResults Ordered/ReviewedLab Tests reviewedAssessment/PlanDiagnosis1. Major depressive disorderStatus Acute2. Suicide attemptStatus Acute3. Bipolar affective disorderCoordination of care provided with nursing staff, treatment teamRisk/benefits discussed side effectsDATE SIGNED: 04/19/20 Electronically SignedTIME SIGNED: 1315 BOGDAN ALMAGUER MD Name Value Range Interpretation Code Description Data Stephanie rce(s) Supporting Document(s) ID Date Data Source [id number] 04/18/2020 12:59:00 PM EDT [address] HEALTH PROGRESS NOTEPATIENT NAME: YARELI HTACH PHYSICIAN: BOGDAN ALMAGUER, MDAUTHOR: Colleen SMITH,DhruvAPUJA. DATE: 02/15/20 MR#: [id number] NOTE DATE: 04/18/20 RM#: 317EVALUATION TIME: 1301 [...] (Clotrimazole) 0 DIRECTED TOPNasal Lubricant (Saline Nasal Wadsworth) 0 Q3HPRN PRN NASALExaminationMusculoskeletalGait normalStation normalResultsLaboratory DataRecent [...] Name Value Range Interpretation Code Description Data [facility] rce(s) Supporting Document(s) ID Date Data Source [id number] 04/17/2020 07:50:00 PM EDT [facility] [place] Name Value Range Interpretation Code Description Data [facility] rce(s) Supporting Document(s) LIP 60.0 U/L 73-393 [facility] ID Date Data Source [id number] 04/17/2020 07:50:00 PM EDT [facility] [place] Name Value Range Interpretation Code Description Data [facility](s) Supporting Document(s) GLU 113 mg/dL 70-110 [facility] Patients taking Sulfasalazine may have f alsely depressedGlucose levels. Patients taking Sulfapyridine may havefalsely elevated Glucose levels. Patients should be drawnfor Glucose before the initial administration of eitherdrug. BUN 17 mg/dL 7-23 [facility] CRE 0.692 mg/dL 0.500-1.300 [facility] CHLORIDE 109 mmol/L 99-110 [facility] NA 141 mmol/L 136-147 [facility] POTASSIUM 3.9 mmol/L 3.5-5.1 [facility] TCO2 24 mmol/L 20-33 [facility] ANION GAP 11.9 10.0-20.0 [facility] CA 9.1 mg/dL 8.3-10.7 [facility] ALKALINE PHOS 148 U/L 82-169 [facility] TP 8.0 g/dL 6.0-7.8 [facility] ALB 4.3 g/dL 3.5-5.0 [facility] ESRD Dialysis patient Albumin reference range: 2.9-4.4 g/dL GL 3.7 g/dL 2.3-3.5 [facility] A/G 1.2 1.0-2.5 [facility] T. BILIRUBIN 0.3 mg/dL 0.1-1.1 [facility] The [facility]ension [facility] Total Bilirubin is n ot recommended forpatients undergoing treatment with eltrombopag (Promacta)due to the potential for falsely elevated results. ALTI 45 U/L 6-54 [facility] Patients taking Sulfasalazine and/or Sul fapyridine may havefalsely depressed ALT levels. Patients should be drawn forALT before the initial administration of either drug. AST 26 U/L 6-38 [facility] Patients taking Sulfasalazine and/or Sul fapyridine may havefalsely depressed AST levels. Patients should be drawn forAST before the initial administration of either drug. ID Date Data Source [id number] 04/17/2020 07:17:00 PM EDT [facility] Name Value Range Interpretation Code Description Data Stephanie rce(s) Supporting Document(s) HbA1C 4.70 % 3.8-5.6 [facility] Suggested Diagnosis HbA1c% Diabet ic >/= 6.5Prediabetes 5.7%-6.4%Normal < 5.7% ID Date Data Source [id number] 04/17/2020 06:39:00 PM EDT [facility] [place] Name Value Range Interpretation Code Description Data Stephanie rce(s) Supporting Document(s) WBC 6.99 x10E3/uL 4.0-10.5 [facility] RBC 4.51 x10E6/uL 4.20-5.40 [facility] Hemoglobin 13.0 g/dL 12.0-16.0 [facility] Hematocrit 39.4 % 37.0-47.0 [facility] MCV 87.4 fL 81.0-99.0 [facility] MCH 28.8 pg 27.0-31.0 [facility] MCHC 33.0 g/dL 32.7-35.6 [facility] RDW 12.7 % 11.5-14.0 [facility] Platelet count 260 x10E3/uL 150-450 [facility] ital MPV 9.5 fl 6.9-9.5 [facility] Neutrophils 53.5 % 34-64 [facility] Lymphocytes 38.1 % 25-45 [facility] Monocytes 6.9 % 1.7-10.6 [facility] Eosinophils 0.9 % 0.4-7.0 [facility] Basophils 0.3 % 0.1-2.0 [facility] Imm. Gran. 0.3 % 0.1-2.0 [facility] Abs. Neutro. 3.75 x10E3/uL 1.2-7.6 [facility] Abs. Lymph. 2.66 x10E3/uL 1.0-3.5 [facility] Abs. Metcalfe. 0.48 x10E3/uL 0.1-1.0 [facility]. Eosin. 0.06 x10E3/uL 0.1-0.7 [facility] Abs. Baso. 0.02 x10E3/uL 0.0-0.1 [facility] Abs. Imm. Gran. 0.02 x10E3/uL 0.0-0.1 [facility] spital ANRBC% 0 % 0 [facility] ID Date Data Source [id number] 04/17/2020 05:59:00 PM EDT [place], [place] [address]CONSULT REPORTPATIENT NAME: YARELI HATCH MR#: [id number] PHYSICIAN: ANGELA VELAZQUEZONSULTING PHYSICIAN: Theresa Chowdhury DATE: [...] judgement, abnormal insight, anxiousData ReviewLaboratory Datapending.ImagingEXAM# TYPE/EXAM [id number] US/U/S COMPLETE UPPER ABDOMENDATE OF EXAMINATION: 04/17/2020 [...] Full codePlan discussed with patientCase discussed with correctional counselor/case manager, nursing staffDATE SIGNED: 04/17/20 Electronically SignedTIME SIGNED: 1806 THERESA SPANGLER Name Value Range Interpretation Code Description Data Stephanie rce(s) Supporting Document(s) ID Date Data Source [id number] 04/17/2020 01:29:00 PM EDT [address] HEALTH PROGRESS NOTEPATIENT NAME: YARELI HATCH PHYSICIAN: BOGDAN ALMAGUER MDAUTHOR: Colleen SMITH,DhdaphnievAPUJA. DATE: 02/15/20 MR#: [id number] NOTE DATE: 04/17/20 RM#: 318EVALUATION TIME: 1331 [...] she just wanted to have his number from[facility] which we discussed with the patient about [...] (Clotrimazole) 0 DIRECTED TOPNasal Lubricant (Saline Nasal Wadsworth) 0 Q3HPRN PRN NASALExaminationMusculoskeletalGait normalStation normalResultsResults Ordered/ReviewedLab Tests reviewedAssessment/PlanDiagnosis1. Bipolar disorder, manicCoordination of care provided with nursing staff, treatment teamRisk/benefits discussed side effectsJustification for continued stay danger to self/others, behavior intolerableDATE SIGNED: 04/17/20 Electronically SignedTIME SIGNED: 1330 BOGDAN ALMAGUER MD Name Value Range Interpretation Code Description Data Stephanie rce(s) Supporting Document(s) ID Date Data Source [id number] 04/17/2020 01:00:00 PM EDT [facility] Exam Number: [id number] OF EXAMINATIO N: 04/17/2020 8:00 EDTU/S COMPLETE [...] rce(s) Supporting Document(s) ID Date Data Source [id number] 04/16/2020 01:31:00 PM EDT [facility] [place], [place] [address]KBPYRP HEALTH PROGRESS NOTEPATIENT NAME: YARELI HATCH PHYSICIAN: BOGDAN ALMAGUER MDAUTHOR: Colleen SMITH,DawsonvAPUJA. DATE: 02/15/20 MR#: [id number] NOTE DATE: 04/16/20 RM#: 318EVALUATION TIME: 1336 [...] (Clotrimazole) 0 DIRECTED TOPNasal Lubricant (Saline Nasal Wadsworth) 0 Q3HPRN PRN NASALIbuprofen (Motrin) 600 MG Q6HPRN PRN POExaminationMusculoskeletalGait normalStation normalResultsResults Ordered/ReviewedLab Tests reviewedAssessment/PlanDiagnosis1. Bipolar disorder, manicCoordination of care provided with nursing staff, treatment teamRisk/benefits discussed side eff ectsJustification for continued stay danger to self/othersDATE SIGNED: 04/16/20 Electronically SignedTIME SIGNED: 1336 BOGDAN ALMAGUER MD Name Value Range Interpretation Code Description Data Stephanie rce(s) Supporting Document(s) ID Date Data Source [id number] 04/15/2020 11:11:00 AM EDT [address] HEALTH PROGRESS NOTEPATIENT NAME: [facility] PH[facility]IAN: BOGDAN ALMAGUER MDAUTHOR: Colleen SMITH,DhruvADM. DATE: 02/15/20 MR#: [id number] NOTE DATE: 04/15/20 RM#: 318EVALUATION TIME: 1114 [...] (Clotrimazole) 0 DIRECTED TOPNasal Lubricant (Saline Nasal Wadsworth) 0 Q3HPRN PRN NASALIbuprofen (Motrin) 600 MG Q6HPRN PRN POExaminationMusculoskeletalGait normalStation normalResultsResults Ordered/ReviewedLab Tests reviewedAssessment/PlanDiagnosis1. Bipolar disorder, manicCoordination of care provided with nursing staff, treatment teamRisk/benefits discussed side effectsDATE SIGNED: 04/15/20 Electronically SignedTIME SIGNED: 1114 BOGDAN ALMAGUER MD Name Value Range Interpretation Code Description Data Stephanie rce(s) Supporting Document(s) ID Date Data Source [id number] 04/14/2020 12:01:00 PM EDT [address] HEALTH PROGRESS NOTEPATIENT NAME: [facility] PH[facility]IAN: BOGDAN ALMAGUER MDAUTHOR: Colleen SMITH,DhruvADM. DATE: 02/15/20 MR#: [id number] NOTE DATE: 04/14/20 RM#: 318EVALUATION TIME: 1203 [...] (Clotrimazole) 0 DIRECTED TOPNasal Lubricant (Saline Nasal Wadsworth) 0 Q3HPRN PRN NASALIbuprofen (Motrin) 600 MG [...] rce(s) Supporting Document(s) ID Date Data Source [id number] 04/12/2020 11:39:00 AM EDT [address] HEALTH PROGRESS NOTEPATIENT NAME: YARELI HATCH PHYSICIAN: BOGDAN ALMAGUER MDAUTHOR: Colleen SMITH,DhruvADM. DATE: 02/15/20 MR#: [id number] NOTE DATE: 04/12/20 RM#: 318EVALUATION TIME: 1141 is 19-year-old female, currently single, lives in a motel,past psych history of bipolar disorderCC/Hx Present IllnessThe patient was referred for evaluation because pt having suicidal ideations.Events Since Last EntryPatient reporting feeling somewhat okay, she stated that at this point shefeels comfortable going back to [facility] as well as, discussed with the [...] (Clotrimazole) 0 DIRECTED TOPNasal Lubricant (Saline Nasal Wadsworth) 0 Q3HPRN PRN NASALIbuprofen (Motrin) 600 MG [...] rce(s) Supporting Document(s) ID Date Data Source [id number] 04/11/2020 01:20:00 PM EDT [facility] [address] HEALTH PROGRESS NOTEPATIENT NAME: YARELI HATHCDING PHYSICIAN: BOGDAN ALMAGUER MDAUTHOR: Colleen SMITH,DhruvADM. DATE: 02/15/20 MR#: [id number] NOTE DATE: 04/11/20 RM#: 318EVALUATION TIME: 1323 [...] this point we discussedwith the patient [facility] for further stabilization due tosignificant ongoing [...] (Clotrimazole) 0 DIRECTED TOPNasal Lubricant (Saline Nasal Wadsworth) 0 Q3HPRN PRN NASALIbuprofen (Motrin) 600 MG [...] rce(s) Supporting Document(s) ID Date Data Source [id number] 04/10/2020 01:13:00 PM EDT [address] HEALTH PROGRESS NOTEPATIENT NAME: YARELI HATCH PHYSICIAN: BOGDAN ALMAGUER MDAUTHOR: Colleen SMITH,DawsonvAPUJA. DATE: 02/15/20 MR#: [id number] NOTE DATE: 04/10/20 RM#: 318EVALUATION TIME: 1317 [...] (Clotrimazole) 0 DIRECTED TOPNasal Lubricant (Saline Nasal Wadsworth) 0 Q3HPRN PRN NASALIbuprofen (Motrin) 600 MG [...] rce(s) Supporting Document(s) ID Date Data Source [id number] 04/09/2020 01:48:00 PM EDT [address] HEALTH PROGRESS NOTEPATIENT NAME: YARELI HATCH PHYSICIAN: BOGDAN ALMAGUER MDAUTHOR: Colleen SMITH,DhruvADM. DATE: 02/15/20 MR#: [id number] NOTE DATE: 04/09/20 RM#: 318EVALUATION TIME: 1353 is 19-year-old female, currently single, lives in a [facility],past psych history of bipolar disorderCC/Hx Present IllnessThe patient was referred for evaluation because pt having suicidal ideations.Events Since Last EntryPatient was somewhat upset later on expressing that she wanted to stay here andshe does not feel comfortable going to [facility] where she came from as well. Wediscussed [...] sort of secondary gain [facility] Offered patient all available options which [facility]al seems to be refusingand some of other places patient was not accepted due to prior history as well.At this point [facility] also [facility], also planning to add voluntaryhospitalization and providing all available support that [facility] can [facility]. Discussed with the patient about maintaining her [...] (Clotrimazole) 0 DIRECTED TOPNasal Lubricant (Saline Nasal Wadsworth) 0 Q3HPRN PRN NASALIbuprofen (Motrin) 600 MG [...] rce(s) Supporting Document(s) ID Date Data Source [id number] 04/08/2020 03:04:00 PM EDT [address] HEALTH PROGRESS NOTEPATIENT NAME: YARELI HATCH PHYSICIAN: BOGDAN ALMAGUER MDAUTHOR: Colleen SMITH,DhruvADM. DATE: 02/15/20 MR#: [id number] NOTE DATE: 04/08/20 RM#: 318EVALUATION TIME: 1506 [...] (Clotrimazole) 0 DIRECTED TOPNasal Lubricant (Saline Nasal Wadsworth) 0 Q3HPRN PRN NASALIbuprofen (Motrin) 600 MG [...] rce(s) Supporting Document(s) ID Date Data Source [id number] 04/05/2020 02:20:00 PM EDT [address] [address] HEALTH PROGRESS NOTEPATIENT NAME: YARELI HATCH CATTENGIOVANNY PHYSICIAN: BOGDAN ALMAGUER MDAUTHOR: Ana Win. DATE: 02/15/20 MR#: [id number] NOTE DATE: 04/05/20 RM#: 318EVALUATION TIME: 1427 [...] (Clotrimazole) 0 DIRECTED TOPNasal Lubricant (Saline Nasal Wadsworth) 0 Q3HPRN PRN NASALIbuprofen (Motrin) 600 MG [...] rce(s) Supporting Document(s) ID Date Data Source [id number] 04/05/2020 01:38:00 PM EDT [facility] [address] [address] HEALTH PROGRESS NOTEPATIENT NAME: YARELI HATCH PHYSICIAN: BOGDAN ALMAGUER, MDAUTHOR: Colleen SMITH,Sarahy. DATE: 02/15/20 MR#: [id number] NOTE DATE: 04/05/20 RM#: 318EVALUATION TIME: 1342 [...] (Clotrimazole) 0 DIRECTED TOPNasal Lubricant (Saline Nasal Wadsworth) 0 Q3HPRN PRN NASALIbuprofen (Motrin) 600 MG [...] rce(s) Supporting Document(s) ID Date Data Source [id number] 04/04/2020 01:16:00 PM EDT [address] PROGRESS NOTEPATIENT NAME: YARELI HATCH PHYSICIAN: BOGDAN ALMAGUER MDAUTHOR: Colleen SMITH,DhruvADM. DATE: 02/15/20 MR#: [id number] NOTE DATE: 04/04/20 RM#: 318EVALUATION TIME: 1321 is 19-year-old female, currently single, lives in a motel,past psych history of bipolar disorderCC/Hx Present IllnessThe patient was referred for evaluation because pt having suicidal ideations.Events Since Last EntryPatient reported earlier to the administrative assistant coordinator regarding that she haddifficulty with her [...] (Clotrimazole) 0 DIRECTED TOPNasal Lubricant (Saline Nasal Wadsworth) 0 Q3HPRN PRN NASALClonidine (Catapres) 0.1 MG [...] rce(s) Supporting Document(s) ID Date Data Source [id number] 04/04/2020 11:16:00 AM EDT [address] HEALTH PROGRESS NOTEPATIENT NAME: YARELI HATCH PHYSICIAN: BOGDAN ALMAGUER MDAUTHOR: Ana Win. DATE: 02/15/20 MR#: [id number] NOTE DATE: 04/04/20 RM#: 318EVALUATION TIME: 1120 [...] (Clotrimazole) 0 DIRECTED TOPNasal Lubricant (Saline Nasal Wadsworth) 0 Q3HPRN PRN NASALClonidine (Catapres) 0.1 MG [...] rce(s) Supporting Document(s) ID Date Data Source [id number] 04/03/2020 01:35:00 PM EDT [address] HEALTH PROGRESS NOTEPATIENT NAME: YARELI HATCH CATSALVADOR PHYSICIAN: BOGDAN ALMAGUER MDAUTHOR: Colleen SMITH,DhruvADM. DATE: 02/15/20 MR#: [id number] NOTE DATE: 04/03/20 RM#: 318EVALUATION TIME: 1338 [...] does not feel comfortable returning back to [facility] wherethere are bunch of drug addicts and [...] (Clotrimazole) 0 DIRECTED TOPNasal Lubricant (Saline Nasal Wadsworth) 0 Q3HPRN PRN NASALClonidine (Catapres) 0.1 MG [...] rce(s) Supporting Document(s) ID Date Data Source [id number] 04/02/2020 11:54:00 AM EDT [facility] [place] [address] HEALTH PROGRESS NOTEPATIENT NAME: YARELI HATCH CATTENDING PHYSICIAN: BOGDAN ALMAGUER MDAUTHOR: Ana Win. DATE: 02/15/20 MR#: [id number] NOTE DATE: 04/02/20 RM#: 318EVALUATION TIME: 1638 [...] rce(s) Supporting Document(s) ID Date Data Source [id number] 04/03/2020 07:41:00 AM EDT [facility] [address] [address]UHPKQYA NAME: YARELI HATCH Janette Jensen#: [id number] PHYSICIAN: BOGDAN ALMAGUER MD ADM. DATE: 02/15/20PROGRESS NOTE DATE: 04/02/20 .#: 318ACCOUNT #: [id number] NOTEIDENTIFICATION: A 19-year-old female with schizoaffective disorder,borderline personality disorder.VITAL SIGNS: Temperature of 97, pulse of 105, respirations 16, blood ircgalml054/83.SUBJECTIVE: The patient came to the interview room. [...] Dictated: 04/02/2020 11:24:04Date Transcribed: 04/03/2020 06:41:37JV/RAVJob #: [id number]: 04/02/20 1124 Electronically SignedTRANS:04/03/20 0741 FILI CANELA MDTRANS BY:TONDAALMA SIGNED:04/03/20REPORT COPY TO: Name Value Range Interpretation Code Description Data Stephanie rce(s) Supporting Document(s) ID Date Data Source [id number] 04/01/2020 02:07:00 PM EDT [facility] [place], [place] [address]II[facility]AG HEALTH PROGRESS NOTEPATIENT NAME: YARELI HATCH CATSALVADOR PHYSICIAN: BOGDAN ALMAGUER MDAUTHOR: Ana Win. DATE: 02/15/20 MR#: [id number] NOTE DATE: 04/01/20 RM#: 318EVALUATION TIME: 1410 [...] violated, and that she would notify the research attorney because sheis transgender. Yareli disclosed that [...] rce(s) Supporting Document(s) ID Date Data Source [id number] 04/02/2020 03:13:00 AM EDT [address] [address]ZIWDZVI NAME: MAMIEYARELI Jensen#: [id number] PHYSICIAN: BOGDAN ALMAGUER MD ADM. DATE: 02/15/20PROGRESS NOTE DATE: 04/01/20 .#: 318ACCOUNT #: [id number] NOTEIDENTIFICATION: A 19-year-old female with schizoaffective disorder, [...] Dictated: 04/01/2020 10:44:46Date Transcribed: 04/02/2020 02:13:19JV/GBJob #: [id number]: 04/01/20 1044 Electronically SignedTRANS:04/02/20 0313 FILI CANELA MDTRANS BY:IATDATE SIGNED:04/02/20REPORT COPY TO: Name Value Range Interpretation Code Description Data Stephanie rce(s) Supporting Document(s) ID Date Data Source [id number] 03/29/2020 11:29:00 AM EDT [address] HEALTH PROGRESS NOTEPATIENT NAME: YARELI HATCH PHYSICIAN: BOGDAN ALMAGUER, MDAUTHOR: Colleen SMITH,DhruvADM. DATE: 02/15/20 MR#: [id number] NOTE DATE: 03/29/20 RM#: 318EVALUATION TIME: 1131 [...] safe dischargeplan, currently waiting on supportive environment, [facility] been involved aswell.ObjectiveVital SignsVital Signs-LastResult Date TimeTemp 98.9 03/29 0647Pulse Ox 99 03/28 1100B/P 96/61 03/28 1100Pulse 98 03/28 1100Resp 16 03/28 1100Current MedicationsSertraline HCl (Zoloft) 75 MG DAILY POBenzocaine/Pectin/Carboxymethylcell (Cepastat) 1 JHOAN Q2HPRN PRN POClotrimazole (Clotrimazole) 0 DIRECTED TOPNasal Lubricant (Saline Nasal Wadsworth) 0 Q3HPRN PRN NASALClonidine (Catapres) 0.1 MG [...] rce(s) Supporting Document(s) ID Date Data Source [id number] 03/28/2020 12:37:00 PM EDT [address] HEALTH PROGRESS NOTEPATIENT NAME: YARELI HATCH PHYSICIAN: BOGDAN ALMAGUER MDAUTHOR: Colleen SMITH,DhruvADM. DATE: 02/15/20 MR#: [id number] NOTE DATE: 03/28/20 RM#: 318EVALUATION TIME: 1238 is 19-year-old female, currently single, well [facility], past psych history of bipolar disorderCC/Hx [...] (Clotrimazole) 0 DIRECTED TOPNasal Lubricant (Saline Nasal [place]) 0 Q3HPRN PRN NASALClonidine (Catapres) 0.1 MG [...] rce(s) Supporting Document(s) ID Date Data Source [id number] 03/27/2020 01:16:00 PM EDT [facility] [address] [id number] HEALTH PROGRESS NOTEPATIENT NAME: YARELI HATCH PHYSICIAN: BOGDAN ALMAGUER MDAUTHOR: Colleen SMITH,DhruvADM. DATE: 02/15/20 MR#: [id number] NOTE DATE: 03/27/20 RM#: [id number] TIME: 1318 [...] (Clotrimazole) 0 DIRECTED TOPNasal Lubricant (Saline Nasal [place]) 0 Q3HPRN PRN NASALClonidine (Catapres) 0.1 MG [...] rce(s) Supporting Document(s) ID Date Data Source [id number] 03/26/2020 02:18:00 PM EDT [facility] PROGRESS NOTEPATIENT NAME: YARELI HATCH PHYSICIAN: BOGDAN ALMAGUER MDAUTHOR: Colleen MSITH,DhruvADM. DATE: 02/15/20 MR#: [id number] NOTE DATE: 03/26/20 RM#: [id number] TIME: 1419 [...] (Clotrimazole) 0 DIRECTED TOPNasal Lubricant (Saline Nasal [place]) 0 Q3HPRN PRN NASALClonidine (Catapres) 0.1 MG [...] rce(s) Supporting Document(s) ID Date Data Source [id number] 03/25/2020 01:50:00 PM EDT [address] HEALTH PROGRESS NOTEPATIENT NAME: YARELI HATCH PHYSICIAN: BOGDAN ALMAGUER MDAUTHOR: Colleen SMITH,DhruvADM. DATE: 02/15/20 MR#: [id number] NOTE DATE: 03/25/20 RM#: [id number] TIME: 1352 [...] Still waitingfor safe discharge plan as well, [facility] involved, denied having any medicationside effect [...] (Clotrimazole) 0 DIRECTED TOPNasal Lubricant (Saline Nasal [place]) 0 Q3HPRN PRN NASALClonidine (Catapres) 0.1 MG [...] rce(s) Supporting Document(s) ID Date Data Source [id number] 03/22/2020 01:42:00 PM EDT Joe [address], [place] [address]RI[place] HEALTH PROGRESS NOTEPATIENT NAME: YARELI HATCH PHYSICIAN: BOGDAN ALMAGUER MDAUTHOR: Colleen SMITH,Sarhay. DATE: 02/15/20 MR#: [id number] NOTE DATE: 03/22/20 RM#: [id number] TIME: 1344 [...] SIGNED: 03/22/20 Electronically SignedTIME SIGNED: 1343 BOGDAN ALMAGEUR MD Name Value Range Interpretation Code Description Data Stephanie rce(s) Supporting Document(s) ID Date Data Source [id number] 03/21/2020 01:39:00 PM EDT [address] HEALTH PROGRESS NOTEPATIENT NAME: YARELI HATCH PHYSICIAN: BOGDAN ALMAGUER MDAUTHOR: Colleen SMITH,DhruvADM. DATE: 02/15/20 MR#: [id number] NOTE DATE: 03/21/20 RM#: [id number] TIME: 1341 is 19-year-old female, currently single, well lives in [facility], past psych history of bipolar disorderCC/Hx Present IllnessThe patient was referred for evaluation because pt having suicidal ideations.Events Since Last EntryPatient was seen on other side with administrative assistant coordinator, patient reportedfeeling okay, but she stated [...] rce(s) Supporting Document(s) ID Date Data Source [id number] 03/20/2020 01:45:00 PM EDT [address] PROGRESS NOTEPATIENT NAME: YARELI HATCH PHYSICIAN: BOGDAN ALMAGUER MDAUTHOR: Colleen SMITH,DhJennyfer. DATE: 02/15/20 MR#: [id number] NOTE DATE: 03/20/20 RM#: [id number] TIME: 1348 [...] rce(s) Supporting Document(s) ID Date Data Source [id number] 03/20/2020 02:30:00 AM EDT [address] [id number] NAME: YARELI HATCH#: [id number] PHYSICIAN: BOGDAN ALMAGUER MD ADM. DATE: 02/15/20PROGRESS NOTE DATE: 03/19/20 RM.#: [id number] #: [id number] NOTEIDENTIFICATION: A 19-year-old female with schizoaffective disorder.VITAL [...] Dictated: 03/19/2020 10:55:33Date Transcribed: 03/20/2020 01:30:40JV/GBJob #: [id number]: 03/19/20 1055 Electronically SignedTRANS:03/20/20 0230 FILI CANELA MDTRANS BY:KIERRA SIGNED:03/20/20REPORT COPY TO: Name Value Range Interpretation Code Description Data Stephanie rce(s) Supporting Document(s) ID Date Data Source [id number] 03/18/2020 02:02:00 PM EDT [address] HEALTH PROGRESS NOTEPATIENT NAME: YARELI HATCH PHYSICIAN: BOGDAN ALMAGUER MDAUTHOR: Surendra SMITH,P.ADM. DATE: 02/15/20 MR#: [id number] NOTE DATE: 03/18/20 RM#: [id number] TIME: 1407 [...] rce(s) Supporting Document(s) ID Date Data Source [id number] 03/15/2020 12:49:00 PM EDT [place] HEALTH PROGRESS NOTEPATIENT NAME: YARELI HATCH PHYSICIAN: BOGDAN ALMAGUER MDAUTHOR: Colleen SMITH,DhruvADM. DATE: 02/15/20 MR#: [id number] NOTE DATE: 03/15/20 RM#: [id number] TIME: 1250 [...] effectsDATE SIGNED: 03/15/20 Electronically SignedTIME SIGNED: 1250 BGODAN ALMAGUER MD Name Value Range Interpretation Code Description Data Stephanie rce(s) Supporting Document(s) ID Date Data Source [id number] 03/14/2020 01:23:00 PM EDT [address] HEALTH PROGRESS NOTEPATIENT NAME: YARELI HATCH PHYSICIAN: BOGDAN ALMAGUER MDAUTHOR: Colleen SMITH,DhruvADM. DATE: 02/15/20 MR#: [id number] NOTE DATE: 03/14/20 RM#: [id number] TIME: 1325 [...] rce(s) Supporting Document(s) ID Date Data Source [id number] 03/13/2020 01:28:00 PM EDT [address] HEALTH PROGRESS NOTEPATIENT NAME: YARELI HATCH PHYSICIAN: BOGDAN ALMAGUER MDAUTHOR: Colleen SMITH,DhdaphnievAPUJA. DATE: 02/15/20 MR#: [id number] NOTE DATE: 03/13/20 #: [id number] TIME: 1329 is 19-year-old female, currently single, well lives in [facility], past psych history of bipolar disorderCC/Hx [...] rce(s) Supporting Document(s) ID Date Data Source [id number] 03/12/2020 01:51:00 PM EDT [place] [id number] PROGRESS NOTEPATIENT NAME: YARELI HATCH PHYSICIAN: BOGDAN ALMAGUER MDAUTHOR: Colleen SMITH,DhruvADM. DATE: 02/15/20 MR#: [id number] NOTE DATE: 03/12/20 RM#: [id number] TIME: 1356 [...] side effectsDATE SIGNED: 03/12/20 Electronically SignedTIME SIGNED: 1606 BOGDAN ALMAGUER MD Name Value Range Interpretation Code Description Data Stephanie rce(s) Supporting Document(s) Procedure Social History Code Duration Value Status Description Data Source(s ) Alcohol intake 04/05/2021 12:00:00 AM EDT Ex-drinker (finding) comp leted Ex- drinker (finding) [facility] Tobacco use and exposure 04/05/2021 12:00:00 AM EDT Never used co mpleted Never used [facility] Cigarette pack-years 04/05/2021 12:00:00 AM EDT UNK completed [facility] Cigarettes smoked current (pack per day) - Reported 04/05/20 12:00:00 AM EDT UNK completed [facility] Smoking 04/05/2021 12:00:00 AM EDT Current every day smoker co mpleted Current every day smoker [facility] Smoking 03/20/2021 12:00:00 AM EDT Unknown if ever smoked comp leted Unknown if ever smoked [facility] Alcohol intake 03/13/2021 12:00:00 AM EDT Ex-drinker (finding) comp leted Ex- drinker (finding) [facility] Tobacco use and exposure 03/13/2021 12:00:00 AM EDT Never used co mpleted Never used [facility] Cigarettes smoked current (pack per day) - Reported 03/13/20 12:00:00 AM EDT UNK completed [facility] Smoking 03/13/2021 12:00:00 AM EDT Current every day smoker co mpleted Current every day smoker [facility] Alcohol intake 02/21/2021 12:00:00 AM EDT Ex-drinker (finding) comp leted Ex- drinker (finding) [facility] 12/22/2020 12:00:00 AM EDT Cigarette Smoker completed Cig arette Smoker [facility] 12/22/2020 12:00:00 AM EDT Current every day smoker co mpleted Current every day smoker [facility] Smoking 11/13/2020 12:00:00 AM EDT Unknown if ever smoked comp leted Unknown if ever smoked [facility] ([facility]) Smoking 08/27/2020 12:00:00 AM EST Unknown if ever smoked comp leted Unknown if ever smoked [facility] ([facility]) Smoking 08/23/2020 12:00:00 AM EST Unknown if ever smoked comp leted Unknown if ever smoked [facility] ([facility]) Smoking 06/24/2020 12:00:00 AM EST Unknown if ever smoked comp leted Unknown if ever smoked [facility] ([facility]) Vital Signs ID Date Data Source UNK Name Value Range Interpretation Code Description Data Source(s) Systolic blood pressure 129 mm[Hg] 129 mm[Hg] [facility] Diastolic blood pressure 90 mm[Hg] 90 mm[Hg] [facility] Heart rate 72 /min 72 /min [facility] Respiratory rate 16 /min 16 /min [facility] Oxygen saturation in Arterial blood by Pulse oximetry 95 % 95 % [facility] Body temperature 36.89 Patricia 36.89 Patricia [facility] Body weight 137.077 kg 137.077 kg [facility] Body mass index (BMI) [Ratio] 48.78 kg/m2 48.78 kg/m2 [facility] Body height 167.6 cm 167.6 cm [facility] ID Date Data Source [id number] 05/08/2021 04:22:00 PM EDT [facility] Name Value Range Interpretation Code Description Data Source(s) WEIGHT 104.545 kilos 104.545 [facility] HEIGHT 167.64 centimeters 167.64 centimeter [facility] ID Date Data Source [id number] 05/05/2021 08:15:00 PM EDT [facility] Name Value Range Interpretation Code Description Data Source(s) Weight Measurement Method 8 8 [facility] Weight 3680 3680 [facility] pital Temperature Source 7 7 [facility] Temperature 99.1 99.1 [facility] spital Respiratory Effort 1 1 [facility] Respiratory Rate 18 18 [facility] Pulse Assessment Method [address] [facility] Pulse Rate 66 66 [facility] Height 66 66 [facility] Blood Pressure 128/55 128/55 [facility] ID Date Data Source [id number] 05/07/2021 09:44:00 AM EDT [facility] [place] Name Value Range Interpretation Code Description Data Source(s) WEIGHT 104 kilos 104 kilos [facility] al HEIGHT 167.64 centimeters 167.64 centimeter [facility] ID Date Data Source [id number] 05/01/2021 09:46:00 AM EDT [facility] Name Value Range Interpretation Code Description Data Source(s) Weight Measurement Method 8 8 [facility] Weight 3668.492 3668.492 [facility] pital Temperature 98.4 98.4 [facility] spital Respiratory Rate 16 16 [facility] Pulse Assessment Method 4 [address] [facility] Pulse Rate 68 68 [facility] pital Height 66 66 [facility]ital Blood Pressure 113/59 113/59 [facility] Weight Measurement Method 8 8 [facility] Weight 3668.492 3668.492 [facility] pital Height 66 66 [facility]ital ID Date Data Source [id number] 05/01/2021 01:52:00 AM EDT [facility] Name Value Range Interpretation Code Description Data Source(s) Weight Measurement Method 8 8 [facility] Weight 3679.991 3679.991 [facility] pital Respiratory Effort 1 1 [facility] Respiratory Rate 18 18 [facility] Height 66 66 [facility] pital Weight Measurement Method 8 8 [facility] Weight 3679.991 3679.991 [facility] pital Respiratory Effort 1 1 [facility] Respiratory Rate 18 18 [facility] Height 66 66 [facility] pital ID Date Data Source [id number] 05/07/2021 10:54:00 AM EDT [facility] Name Value Range Interpretation Code Description Data Source(s) Weight Measurement Method 8 8 [facility] Weight 3680 3680 [facility] pital Temperature Source 7 7 [facility] Temperature 98.8 98.8 [facility] spital Respiratory Effort 1 1 [facility] Respiratory Rate 18 18 [facility] Pulse Assessment Method 4 [address] [facility] Pulse Rate 103 103 [facility] Height 66 66 [facility] pital Blood Pressure 162/60 162/60 [facility] ID Date Data Source [id number] 05/02/2021 08:03:00 AM EDT [facility] [place] Name Value Range Interpretation Code Description Data Source(s) WEIGHT 150 kilos 150 kilos [facility] HEIGHT 172.72 centimeters 172.72 centimeter [facility] ID Date Data Source [id number] 05/01/2021 11:21:00 AM EDT [facility] [place] Name Value Range Interpretation Code Description Data Source(s) WEIGHT 136.6 kilos 136.6 kilos [facility] HEIGHT 167.64 centimeters 167.64 centimeter [facility] WEIGHT 303 kilos 303 [facility]ilos [facility] 167.64 centimeters 167.64 centimeter [facility] ID Date Data Source [id number] 04/24/2021 11:09:00 AM EDT [facility] [facility] Name Value Range Interpretation Code Description Data Source(s) Weight Measurement Method 8 8 [facility] Weight 3680 3680 [facility] pital Temperature Source 7 7 [facility] Temperature 98.0 98.0 [facility] Respiratory Effort 1 1 [facility] Respiratory Rate 18 18 [facility] Pulse Assessment Method 4 [address] [facility] Pulse Rate 88 88 [facility] pital Height 66 66 [facility] Blood Pressure 147/57 147/57 [facility] ID Date Data Source [id number] 04/28/2021 04:53:00 PM EDT [place] [facility] Name Value Range Interpretation Code Description Data Source(s) Weight Measurement Method 8 8 [facility] Weight 3679.074 3679.074 [facility] pital Temperature Source 7 7 [facility] Temperature 98[facility]2 98.2 [facility] Respiratory Effort 1 1 [facility] Respiratory Rate 16 16 [facility] Pulse Assessment Method 4 [address] [facility] Pulse Rate 80 80 [facility] pital Height 66 66 [facility] pital Blood Pressure 132/72 132/72 [facility] ID Date Data Source [id number] 04/16/2021 12:24:00 PM EDT [facility] Name Value Range Interpretation Code Description Data Source(s) Weight Measurement Method 8 8 [facility] Weight 3680 3680 [facility] pital Temperature Source 7 7 [facility] Temperature 98.1 98.1 [place] [facility] Respiratory Effort 1 1 [facility] Respiratory Rate 16 16 [facility] Pulse Assessment Method 4 [address] [facility] Pulse Rate 98 98 [facility] pital Height 66 66 [facility] Blood Pressure 111/58 111/58 [facility] Weight Measurement Method 8 8 [facility] Weight 3680 3680 [facility] pital Temperature Source 7 7 [facility] Temperature 98.1 98.1 [facility] Respiratory Effort 1 1 [facility] Respiratory Rate 16 16 [facility] Pulse Assessment Method 4 [address] [facility] Pulse Rate 98 98 [facility] pital Height 66 66 [facility] pital Blood Pressure 111/58 111/58 [facility] ID Date Data Source [id number] 04/19/2021 01:44:00 AM EDT [facility] [place] Name Value Range Interpretation Code Description Data Source(s) WEIGHT 105 kilos 105 kilos [facility] al HEIGHT 167.64 centimeters 167.64 centimeter [facility] ID Date Data Source [id number] 04/19/2021 01:44:00 AM EDT [facility] Name Value Range Interpretation Code Description Data Source(s) WEIGHT 131 kilos 131 kilos [facility] al HEIGHT 170.18 centimeters 170.18 centimeter [facility] ID Date Data Source [id number] 05/11/2021 06:14:00 PM EDT [place] [facility] Name Value Range Interpretation Code Description Data Source(s) Weight Measurement Method 8 8 [facility] Weight 3520 3520 [facility] pital Temperature Source 7 7 [facility] Temperature 97.4 97.4 [facility] Respiratory Effort 1 1 [facility] Respiratory Rate 18 18 [facility] Pulse Assessment Method 4 [address] [facility] Pulse Rate 94 94 [facility] pital Height 66 66 [facility] pital Blood Pressure 136/75 136/75 [facility] Weight Measurement Method 8 8 [facility] Weight 3520 3520 [facility] pital Temperature Source 1 1 [facility] Temperature 98.5 98.5 [facility] spital Respiratory Effort 1 1 [facility] Respiratory Rate 16 16 [facility] Pulse Assessment Method 4 [address] [facility] Pulse Rate 86 86 [facility] pital Height 66 66 [facility] pital Blood Pressure 131/98 131/98 [facility] Weight Measurement Method 8 8 [facility] Weight 3520 3520 [facility] pital Temperature Source 1 1 [facility] Temperature 98.5 98.5 [facility] spital Respiratory Effort 1 1 [facility] Respiratory Rate 18 18 [facility] Pulse Assessment Method 4 [address] [facility] Pulse Rate 108 108 [facility] pital Height 66 66 [facility] pital Blood Pressure 131/92 131/92 [facility] ID Date Data Source [id number] 05/09/2021 04:32:00 PM EDT [place] [facility] Name Value Range Interpretation Code Description Data Source(s) Weight Measurement Method 8 8 [facility] Weight 3680 3680 [facility] pital Temperature Source 7 7 [facility] Temperature 99.0 99.0 [facility] spital Respiratory Effort 1 1 [facility] Respiratory Rate 18 18 [facility] Pulse Assessment Method 4 [address] [facility] Pulse Rate 102 102 [facility] pital Height 66 66 [facility] pital Blood Pressure 141/79 141/79 [facility] Weight Measurement Method 8 8 [facility] Weight 3680 3680 [facility] pital Temperature Source 7 7 [facility] Temperature 98 98 [facility] spital Respiratory Effort 1 1 [facility] Respiratory Rate 16 16 [facility] Pulse Assessment Method 4 [address] [facility] Pulse Rate 122 122 [facility] pital Height 66 66 [facility] pital Blood Pressure 149/85 149/85 [facility] ID Date Data Source [id number] 03/25/2021 07:15:[address] [facility] Name Value Range Interpretation Code Description Data Source(s) TRANSFER FROM [facility] ID Date Data Source [id number] 05/09/2021 04:49:00 PM EDT [place] [facility] Name Value Range Interpretation Code Description Data Source(s) Weight Measurement Method 8 8 [facility] Weight 3680 3680 [facility] pital Temperature Source 7 7 [facility] 97.3 97.3 [facility] Res[facility] 18 18 [facility] Pulse Rate 106 106 [facility] Height 66 66 [facility] Blood Pressure 122/83 122/83 [facility] Weight Measurement Method 8 8 [facility] Weight 3680 3680 [facility] pital Temperature Source 7 7 [facility] Temperature 97.3 97.3 [facility] spital Respiratory Rate 18 18 [facility] Pulse Rate 106 106 [facility] pital Height 66 66 [facility] pital Blood Pressure 122/83 122/83 [facility] ID Date Data Source [id number] 05/10/2021 06:49:00 PM EDT [facility] sp[facility] Name Value Range Interpretation Code Description Data Source(s) Weight Measurement Method 8 8 [facility] Weight 3680 3680 [facility] pital Temperature Source 7 7 [facility] Temperature 99.8 99.8 [place] [facility] Respiratory Effort 1 1 [facility] Respiratory Rate 18 18 [facility] Pulse Rate 117 117 [facility] pital Height 66 66 [facility] pital Blood Pressure 142/72 142/72 [facility] Weight Measurement Method 8 8 [facility] Weight 3680 3680 [facility] pital Temperature Source 7 7 [facility] Temperature 99.8 99.8 [place] [facility] Respiratory Effort 1 1 [facility] Respiratory Rate 18 18 [facility] Pulse Rate 117 117 [facility] Height 66 66 [facility] pital Blood Pressure 142/72 142/72 [facility] ID Date Data Source [id number] 05/09/2021 02:14:00 PM EDT [facility] spital Name Value Range Interpretation Code Description Data Source(s) Weight Measurement Method 8 8 [facility] Weight 3680 3680 [facility] pital Temperature Source 7 7 [facility] Temperature 97.3 97.3 [facility] spital Respiratory Rate 16 16 [facility] Pulse Assessment Method 4 [address] [facility] Pulse Rate 68 68 [facility] pital Height 66 66 [facility] pital Blood Pressure 113/59 113/59 [facility] Weight Measurement Method 8 8 [facility] Weight 3680 3680 [facility] pital Temperature Source 7 7 [facility] Temperature 98.7 98.7 [facility] spital Respiratory Rate 20 20 [facility] Pulse Rate 110 110 [facility] pital Height 66 66 [facility] pital Blood Pressure 135/70 135/70 [facility] ID Date Data Source [id number] 05/10/2021 09:58:00 AM EDT [facility] spital Name Value Range Interpretation Code Description Data Source(s) Weight Measurement Method 8 8 [facility] Weight 3680 3680 [facility] pital Temperature Source 7 7 [facility] Temperature 98.4 98.4 [facility] spital Respiratory Effort 1 1 [facility] Respiratory Rate 16 16 [facility] Pulse Assessment Method [address] [facility] Pulse Rate 78 78 [facility] Height 66 66 [facility] Blood Pressure 129/88 129/88 [facility] Weight Measurement Method 8 8 [facility] Weight 8113.011 8113.011 [facility] Temperature Source 7 7 [facility] Temperature 98.4 98.4 [facility] spital Respiratory Effort 1 1 [facility] Respiratory Rate 18 18 [facility] Pulse Assessment Method 4 [address] [facility] Pulse Rate 109 109 [facility] Height 66 66 [facility] Blood Pressure 145/74 145/74 [facility] ID Date Data Source [id number] 02/26/2021 08:59:[address] [facility] Name Value Range Interpretation Code Description Data Source(s) TRANSFER FROM [facility] ID Date Data Source [id number] 05/09/2021 08:17:00 PM EDT [facility] Name Value Range Interpretation Code Description Data Source(s) Weight Measurement Method 8 8 [facility] Weight 3680 3680 [facility] Temperature Source 7 7 [facility] Temperature 98.3 98.3 [facility] spital Respiratory Effort 1 1 [facility] Respiratory Rate 20 20 [facility] Pulse Assessment Method 4 [address] [facility] Pulse Rate 108 108 [facility] Height 66 66 [facility] Blood Pressure 124/58 124/58 [facility] Weight Measurement Method 8 8 [facility] Weight 3680 3680 [facility] Temperature Source 7 7 [facility] Temperature 96.7 96.7 [facility] spital Respiratory Effort 1 1 [facility] Respiratory Rate 18 18 [facility] Pulse Assessment Method 4 [address] [facility] Pulse Rate 94 94 [facility] Height 66 66 [facility] Blood Pressure 126/81 126/81 [facility] Weight Measurement Method 8 8 [facility] Weight 3680 3680 [facility] Temperature Source 7 7 [facility] Temperature 96.7 96.7 [facility] spital Respiratory Effort 1 1 [facility] Respiratory Rate 18 18 [facility] Pulse Assessment Method 4 [address] [facility] Pulse Rate 94 94 [facility] Height 66 66 [facility] Blood Pressure 126/81 126/81 [facility] ID Date Data Source [id number] 04/19/2021 01:44:00 AM EDT [facility] Name Value Range Interpretation Code Description Data Source(s) WEIGHT 136.6 kilos 136.6 kilos [facility] HEIGHT 170.18 centimeters 170.18 centimeter s [facility] WEIGHT 137.7 kilos 137.7 kilos [facility] HEIGHT 170.18 centimeters 170.18 centimeter s [facility] WEIGHT 137.2 kilos 137.2 kilos [facility] HEIGHT 170.18 centimeters 170.18 centimeter s [facility] WEIGHT 137.2 kilos 137.2 kilos [facility] HEIGHT 152.4 centimeters 152.4 centimeters [facility] WEIGHT 137.2 kilos 137.2 kilos [facility] HEIGHT 170.18 centimeters 170.18 centimeter s [facility] WEIGHT 134.5 kilos 134.5 kilos [facility] HEIGHT 170.18 centimeters 170.18 centimeter s [facility] ID Date Data Source [id number] 04/19/2021 01:44:00 AM EDT [facility] Name Value Range Interpretation Code Description Data Source(s) WEIGHT 136.3 kilos 136.3 kilos [facility] HEIGHT 152.4 centimeters 152.4 centimeters [facility] WEIGHT 136.3 kilos 136.3 kilos [facility] HEIGHT 170.18 centimeters 170.18 centimeter s [facility] WEIGHT 136.8 kilos 136.8 kilos [facility] HEIGHT 170.18 centimeters 170.18 centimeter s [facility] WEIGHT 131.5 kilos 131.5 kilos [facility] HEIGHT 170.18 centimeters 170.18 centimeter s [facility] WEIGHT 128.8 kilos 128.8 kilos [facility] HEIGHT 170.18 centimeters 170.18 centimeter s [facility] WEIGHT 126.8 kilos 126.8 kilos [facility] HEIGHT 170.18 centimeters 170.18 centimeter s [facility] WEIGHT 124 kilos 124 kilos [facility] HEIGHT 170.18 centimeters 170.18 centimeter s [facility] ID Date Data Source [id number] 10/29/2020 09:38:25 PM EDT [facility] Name Value Range Interpretation Code Description Data Source(s) PREFERRED NAME [facility] Hospital TRANSFER FROM [facility] ID Date Data Source [id number] 04/19/2021 01:44:00 AM EDT [facility] Name Value Range Interpretation Code Description Data Source(s) WEIGHT 124 kilos 124 kilos [facility] HEIGHT 167.64 centimeters 167.64 centimeter s [facility] ID Date Data Source [id number] 07/18/2020 09:56:40 PM [facility] Name Value Range Interpretation Code Description Data Source(s) PREFERRED NAME [facility] Hospital TRANSFER FROM [facility] ID Date Data Source [id number] 04/19/2021 01:43:00 AM EDT [facility] Name Value Range Interpretation Code Description Data Source(s) WEIGHT 122.8 kilos 122.8 kilos [facility] HEIGHT 167.64 centimeters 167.64 centimeter s [facility] WEIGHT 100 kilos 100 kilos [facility] HEIGHT 167.64 centimeters 167.64 centimeter s [facility] ID Date Data Source [id number] 04/19/2021 01:43:00 AM EDT [facility] Name Value Range Interpretation Code Description Data Source(s) WEIGHT 124.2 kilos 124.2 kilos [facility] HEIGHT 167.64 centimeters 167.64 centimeter s [facility] WEIGHT 123.4 kilos 123.4 kilos [facility] HEIGHT 167.64 centimeters 167.64 centimeter s [facility] WEIGHT 123.9 kilos 123.9 kilos [facility] HEIGHT 167.64 centimeters 167.64 centimeter s [facility] WEIGHT 123.9 kilos 123.9 kilos [facility] HEIGHT 152.4 centimeters 152.4 centimeters [facility] WEIGHT 119.6 kilos 119.6 kilos [facility] HEIGHT 167.64 centimeters 167.64 centimeter s [facility] WEIGHT 118.2 kilos 118.2 kilos [facility] HEIGHT 167.64 centimeters 167.64 centimeter s [facility] WEIGHT 112.6 kilos 112.6 kilos [facility] HEIGHT 167.64 centimeters 167.64 centimeter s [facility] WEIGHT 100 kilos 100 kilos [facility] HEIGHT 167.64 centimeters 167.64 centimeter s [facility] ID Date Data Source [id number] 04/19/2021 01:43:00 AM EDT [facility] Name Value Range Interpretation Code Description Data Source(s) WEIGHT 100 kilos 100 kilos [facility] HEIGHT 167.64 centimeters 167.64 centimeter [facility] ID Date Data Source [id number] 04/19/2021 01:43:00 AM EDT [facility] Name Value Range Interpretation Code Description Data Source(s) WEIGHT 110 kilos 110 kilos [facility] HEIGHT 167.64 centimeters 167.64 centimeter [facility] WEIGHT 100 kilos 100 kilos [facility] HEIGHT 167.64 centimeters 167.64 centimeter [facility] ID Date Data Source [id number] 04/19/2021 01:43:00 AM EDT [facility] Name Value Range Interpretation Code Description Data Source(s) WEIGHT 104.4 kilos 104.4 kilos [facility] HEIGHT 152.4 centimeters 152.4 centimeters [facility] WEIGHT 100 kilos 100 kilos [facility] HEIGHT 167.64 centimeters 167.64 centimeter [facility] Patient Treatment Plan of Care Planned Activity Planned Date Details Description Data Source (s) Sertraline 50 MG Oral Tablet 04/07/2021 12:00:00 AM [facility] Prazosin 1 MG Oral Capsule 04/05/2021 10:00:00 PM [facility] Ondansetron 4 MG Disintegrating Oral Tablet 04/05/2021 06:25:36 AM [facility] Magnesium Hydroxide 80 MG/ML Oral Suspension 04/05/2021 06:25:35 AM [facility] Aluminum Hydroxide 40 MG/ML / Magnesium Hydroxide 40 MG/ML / Simethicone 4 MG/ML Oral Suspension 04/05/2021 06:25:[address] [facility] Melatonin 5 MG Oral Tablet 04/05/2021 06:25:23 AM [facility] aripiprazole 10 MG Oral Tablet 03/25/2021 12:00:00 AM [facility] Escitalopram 5 MG Oral Tablet 03/15/2021 12:00:00 AM EDT [facility] Prazosin 2 MG Oral Capsule 03/15/2021 12:00:00 AM [facility] topiramate 25 MG Oral Tablet 02/26/2021 12:00:00 AM [facility] Sertraline 50 MG Oral Tablet 02/26/2021 12:00:00 AM [facility] Loratadine 10 MG Oral Tablet 02/26/2021 12:00:00 AM [facility] Lurasidone Hydrochloride 80 MG Oral Tablet 02/26/2021 12:00:00 AM [facility] topiramate 25 MG Oral Tablet 02/26/2021 12:00:00 AM [facility] Sertraline 50 MG Oral Tablet 02/26/2021 12:00:00 AM [facility] Lurasidone Hydrochloride 80 MG Oral Tablet 02/26/2021 12:00:00 AM [facility] Loratadine 10 MG Oral Tablet 02/26/2021 12:00:00 AM [facility] Propranolol Hydrochloride 10 MG Oral Tablet 02/25/2021 12:00:00 AM [facility] Prazosin 2 MG Oral Capsule 02/25/2021 12:00:00 AM [facility] montelukast 10 MG Oral Tablet 02/25/2021 12:00:00 AM [facility] Trazodone Hydrochloride 50 MG Oral Tablet 02/25/2021 12:00:00 AM [facility] Pravastatin Sodium 20 MG Oral Tablet 02/25/2021 12:00:00 AM [facility] Trazodone Hydrochloride 50 MG Oral Tablet 02/25/2021 12:00:00 AM [facility] Propranolol Hydrochloride 10 MG Oral Tablet 02/25/2021 12:00:00 AM [facility] Prazosin 2 MG Oral Capsule 02/25/2021 12:00:00 AM [facility] Pravastatin Sodium 20 MG Oral Tablet 02/25/2021 12:00:00 AM [facility] montelukast 10 MG Oral Tablet 02/25/2021 12:00:00 AM [facility] chlorproMAZINE (THORAZINE) 50 MG/2ML injection 02/22/2021 05:23:23 PM [facility] diphenhydrAMINE (BENADRYL) 50 MG/ML injection 02/22/2021 05:23:16 P M [facility] Hydroxyzine Hydrochloride 50 MG Oral Tablet 02/21/2021 08:18:25 PM [facility] Magnesium Hydroxide 80 MG/ML Oral Suspension 02/21/2021 08:18:18 PM [facility] 2 ML aripiprazole 200 MG/ML Prefilled Syringe [Abilify ] 06/18/2020 12:00:00 AM [facility]spital duloxetine 30 MG Delayed Release Oral Capsule 12/28/2019 12:00:00 A M [facility] Sertraline 50 MG Oral Tablet [facility] Propranolol Hydrochloride 10 MG Oral Tablet [facility] Prazosin 1 MG Oral Capsule [facility] Ondansetron 4 MG Oral Tablet [facility] Citalopram 20 MG Oral Tablet [facility]
== END 2021-05-12 02:40 | disposition left against medical advice (07) ==
LOC: M ED 02:26
DX: Z53.21 Procedure and treatment not carried out due to patient leaving prior to being seen by health care provider (principal)

== ENCOUNTER 2021-05-16 01:04 | Emergency (ER) | payer OTHER ==
[~2021-05-16] VITALS: Ht 167.6 cm; Wt 134.8 kg
[2021-05-16 03:00] LABS: BASO % 0.1 % (0.0-1.0); EOS # 0.1 10^3/uL (0.0-0.5); EOS % 0.7 % (0.0-3.0); HEMATOCRIT 36.1 % (36.0-47.0); HEMOGLOBIN 11.8 g/dl (12.0-15.5); LYMPH % 29.3 % (24.0-44.0); MEAN CORPUSCULAR HEMOGLOBIN 29.5 pg (27.0-33.0); MEAN CORPUSCULAR HGB CONC 32.7 g/dl (32.0-36.5); MEAN CORPUSCULAR VOLUME 90.3 fl (80.0-96.0); MONO # 0.6 10^3/uL (0.0-0.8); MONO % 8.2 % (2.0-8.0); NEUTROPHILS # 4.3 10^3/uL (1.5-8.5); NEUTROPHILS % 61.3 % (36.0-66.0); PLATELET COUNT, AUTOMATED 231 10^3/uL (150-450); WHITE BLOOD COUNT 6.9 10^3/uL (4.0-10.0)
[2021-05-16 03:29] LABS: HCG, SERUM QUALITATIVE NEGATIVE (NEGATIVE)
[2021-05-16 03:30] LABS: AMPHETAMINES LEVEL URINE NEGATIVE (NEGATIVE); BARBITURATES URINE NEGATIVE (NEGATIVE); BENZODIAZEPINES URINE NEGATIVE (NEGATIVE); CANNABINOIDS URINE NEGATIVE (NEGATIVE); COCAINE METABOLITE URINE NEGATIVE (NEGATIVE); METHADONE URINE NEGATIVE (NEGATIVE); OPIATES URINE NEGATIVE (NEGATIVE); PHENCYCLIDINE URINE NEGATIVE (NEGATIVE)
[2021-05-16 03:49] LABS: ACETAMINOPHEN LEVEL < 2.0 UG/ML (10.0-30.0); ALBUMIN 3.6 GM/DL (3.2-5.2); ALT/SGPT 46 U/L (12-78); BILIRUBIN,DIRECT 0.1 MG/DL (0.0-0.2); BILIRUBIN,TOTAL 0.3 MG/DL (0.2-1.0); BLOOD UREA NITROGEN 17 MG/DL (7-18); CALCIUM LEVEL 8.9 MG/DL (8.5-10.1); CARBON DIOXIDE LEVEL 23 MEQ/L (21-32); CHLORIDE LEVEL 108 MEQ/L (98-107); CPK CREATINE PHOSPHOKINASE 179 U/L (26-192); CREATININE FOR GFR 0.67 MG/DL (0.55-1.30); GLUCOSE, FASTING 102 MG/DL (70-100); POTASSIUM SERUM 3.8 MEQ/L (3.5-5.1); SALICYLATE LEVEL < 1.7 MG/DL (5.0-30.0); SODIUM LEVEL 138 MEQ/L (136-145); TOTAL PROTEIN 7.4 GM/DL (6.4-8.2)
[2021-05-16 03:50] LABS: ETHYL ALCOHOL (ETHANOL) < 0.003 % (0.000-0.010)
[2021-05-16 10:45] VITALS: BP 115/76
--- NOTE | 2021-05-16 12:55 | MHCRPDOC ---
[facility] Consultation Consultation DATE OF CONSULTATION: 05/16/21 CONSULTATION REQUESTED BY: ED team REASON FOR CONSULTATION: Patient reports got into an argument at home with family, boyfriend and self presented to the ED seeking admission after reportedly taking excess medication, amount unclear, patient appear clear and oriented since admission, patient states she took extra pills, but not excessive amount overdose. RELEVANT HISTORY: Patient is a 20-year-old female with a long history of borderline personality disorder reports took excess medication because she was angry and had arguments with family over gender transitioning, denies a clear trigger that precipitated her taking extra medications otherwise, reports she chronically makes suicidal statements. Upon interview reports she is "fine", initially reported vague SI without clear plan was reevaluated by team after she found out a bed was only available at [facility] and she had to wait, then endorsed she did not have any suicidal intent or plan and was willing to work on safety plan, despite perseverating on wanting inpatient admission if not [facility]. Denies any homicidal intent or plan. No symptoms of enoc or psychosis. Patient states she will go to her appointment on May 20 with outside provider, confirmed with social work. Per pSA report: "Marine Engine Mechanic met with patient to discuss what brought her in to the ER. Patient stated that she came out as trans in 2017 and that her boyfriend is supportive of her decisicion however was unsure of how her bf family was going to react. She went out to take a walk and started to have all these thoughts and began to worry and stated that she returned home and took a good amount of her pills. Patient then presented to the ED. Patient did state that she needed inpatient but did not want to go to [facility]. Marine Engine Mechanic made calls for bed availability and was told only beds were available at [facility] and told this life insurance underwriter she did not want to go there and would rather come up with safety plan. Patient does have a follow up appointment at [facility] with Grayson on Wed05/20/21 @3pm." PAST PSYCHIATRIC HISTORY: See previous care summaries, has history of suicide attempts, multiple inpatient admissions PAST MEDICAL HISTORY: See care summary FAMILY HISTORY: Unclear PERSONAL AND SOCIAL HISTORY: The patient was born and raised in [place]. Resides in: [place] Marital Status: S Single Employment: [employer] HISTORY: LEGAL HISTORY: none indicated MENTAL STATUS EXAMINATION: Patient is a 20-year old female, who is no acute distress lying in bed irritable and frustrated interviewing Speech is spontaneous, normal rate and increased amount Language skills are fair Thought processes including: Linear logical. Thought content: Denies suicidal ideation, intent or plan. Denies homicidal ideation, intent. On further evaluation. Abstract reasoning, and computation: Fair Description of associations: Normal based on interview Description of abnormal or psychotic thoughts: Denies. Judgment: Fair Insight: Fair Orientation to x4 Recent and remote memory: Intact Attention span and concentration: Fair Language: Citizen Of [place] Fund of knowledge: Average based on age Mood: "fine" Affect: Irritable at baseline, does not appear dysthymic or anxious, appropriate, mood congruent DIAGNOSIS: 1. Borderline personality disorder PLAN: 1. Patient does not meet criteria for involuntary admission, as blood work-up endorses anger and frustration family being a trigger for herself presenting, nor endorsing suicidal ideation, intent or plan. Denies any homicidal ideation, intent or plan. No symptoms of psychosis or enoc. Patient alert and oriented and future directed to go to appointments May 20 with outside provider. Patient needs safety plan arranged including removing access to pill collections and can be discharged, did not want voluntary admission after being made aware that she had to wait or be transferred. Vital Signs Vital Signs Date Time Temp Pulse Resp B/P (MAP) Pulse Ox O2 Delivery O2 Flow Rate FiO2 05/16/21 10:45 98.1 75 17 115/76 (89) 100 05/16/21 06:30 Room Air Laboratory Data 24H Labs Laboratory Tests 2 05/16/21 02:50: Immature Granulocyte % (Auto) 0.4, Neutrophils (%) (Auto) 61.3, Lymphocytes (%) (Auto) 29.3, Monocytes (%) (Auto) 8.2H, Eosinophils (%) (Auto) 0.7, Basophils (%) (Auto) 0.1, Neutrophils # (Auto) 4.3, Lymphocytes # (Auto) 2.0, Monocytes # (Auto) 0.6, Eosinophils # (Auto) 0.1, Basophils # (Auto) 0.0, Nucleated Red Blood Cells % (auto) 0.0, Anion Gap 7L, Calcium Level 8.9, Total Bilirubin 0.3, Direct Bilirubin 0.1, Aspartate Amino Transf (AST/SGOT) 24, Alanine A minotransferase (ALT/SGPT) 46, Alkaline Phosphatase 105, Total Creatine Kinase 179, Total Protein 7.4, Albumin 3.6, Albumin/Globulin Ratio 0.9L, Thyroid Stimulating Hormone (TSH) 1.140, Human Chorionic Gonadotropin, Qual NEGATIVE, Salicylates Level < 1.7L, Urine Opiates Screen NEGATIVE, Urine Methadone Screen NEGATIVE, Acetaminophen Level < 2.0L, Urine Barbiturates Screen NEGATIVE, Urine Phencyclidine Screen NEGATIVE, Urine Amphetamines Screen NEGATIVE, Urine Benzodiazepines Screen NEGATIVE, Urine Cocaine Metabolite Screen NEGATIVE, Urine Cannabinoids Screen NEGATIVE, Ethyl Alcohol Level < 0.003 05/16/21 02:59: Bedside Glucose (Misc Panel) 90 Home Medications Scheduled Escitalopram Oxalate (Lexapro) 5 Mg Tablet, 5 MG PO QPM, (Reported) TAKES AT DINNERTIME Olanzapine (Zyprexa) 5 Mg Tablet, 5 MG PO QHS, (Reported) Pravastatin Sodium (Pravastatin Sodium) 20 Mg Tablet, 20 MG PO QHS, (Reported) Prazosin Hcl (Prazosin HCl) 2 Mg Capsule, 2 MG PO QHS, (Reported) Propranolol HCl (Propranolol HCl) 10 Mg Tablet, 10 MG PO BID, (Reported) Sertraline HCl (Sertraline HCl) 50 Mg Tablet, 150 MG PO DAILY, (Reported) Miscellaneous Medications Aripiprazole (Aripiprazole) 10 Mg Tablet, (Reported) Allergies Coded Allergies: haloperidol (Verified Adverse Reaction, Intermediate, LOCKJAW, 04/19/21) Has required & received this med many time without EPS noted risperidone (Verified Adverse Reaction, Mild, PSORIASIS, 04/19/21) RUBY DEVI MD May 16, 2021 12:55
--- NOTE | 2021-05-16 20:48 | ECGEPIP ---
[facility] - ED Test Date: 2021-05-16 Pat Name: SCOTTY OCAMPO Department: Room: - Gender: Female Outbound Supervisor: [facility] : 2000 Requested By: THAO Perry Order Number: [id number] Reading MD: Olivia Zuniga Measurements Intervals [place] Rate: 67 P: 39 ID: [id number] QRS: -5 QRSD: 88 T: 35 QT: 382 QTc: 403 Interpretive Statements Normal sinus rhythm Minimal voltage criteria for LVH, may be normal variant ( R in aVL ) similar 03/20/21 Electronically Signed on 05-16-2021 20:47:45 EDT by Olivia Zuniga
--- NOTE | 2021-05-16 20:51 | ECGEPIP ---
[facility] - ED Test Date: 2021-05-16 Pat Name: SCOTTY OCAMPO Department: Room: - Gender: Female Traveler Changer: Tabatha SMITH : 2000 Requested By: THAO Perry Order Number: [id number] Reading MD: Olivia Zuniga Measurements Intervals [place] Rate: 60 P: 53 WV: 148 QRS: -3 QRSD: 88 T: 27 QT: 406 QTc: 406 Interpretive Statements Normal sinus rhythm with sinus arrhythmia Minimal voltage criteria for LVH, may be normal variant ( R in aVL ) similar 05/16/21 Electronically Signed on 05-16-2021 20:50:57 EDT by Olivia Zuniga
[2021-05-17] MEDS ORDERED: LORA-674 PO (17:55)
[2021-05-17] MEDS ORDERED: TOPI25TA10 PO (19:16)
[2021-05-17] MEDS ORDERED: ARIP1TAB6 PO (19:16)
[2021-05-17] MEDS ORDERED: ABIL1INJ2 IM (19:16)
[2021-05-17] MEDS ORDERED: MONT10TA10 PO (19:16)
== END 2021-05-16 10:48 | disposition home or self-care (01) ==
LOC: M ED 01:04
DX: T50.902A Poisoning by unspecified drugs, medicaments and biological substances, intentional self-harm, initial encounter (principal); F43.0 Acute stress reaction; F60.3 Borderline personality disorder; F31.9 Bipolar disorder, unspecified; F41.9 Anxiety disorder, unspecified; Z88.8 Allergy status to other drugs, medicaments and biological substances; Z79.899 Other long term (current) drug therapy

== ENCOUNTER 2021-05-17 02:26 | Emergency (ER) | payer OTHER ==
[~2021-05-17] VITALS: Ht 167.6 cm; Wt 104.5 kg
--- OUTSIDE RECORDS SUMMARY | 2021-05-17 02:37 | CCD ---
Author Author Yareli Hernandez (Anthony) Organization [facility] Address Unknown Phone Unavailable Care Team Providers Care System Validation Engineer Name Role Phone Shalini Hernandez PCP Unavailable Allergies, Adverse Reactions, Alerts Allergy Substance Code C odeSystem Reaction Severity Critic ality Status Start Date Moderate Medications Medication Medication Code Medication CodeSystem Start Date Stop Date Route Dose Status Fill Instructions RxNorm Problems Problem Name Code CodeSy stem Alternate Code Alternate CodeSystem Start Date End Date Status Narrative Depressive episode, unspecified [id number] SNOMED-CT 2017-05-17 Active Depressive episode, unspecified [id number] [facility]OM[facility] 2017-05-17 Active Emotionally unstable personality disorder SNOMED-CT 2019-11-09 Active Reactive attachment disorder of childhood 01286340 SNOMED-CT 2017-05-17 Active Obesity, unspecified [id number] SNOMED-[facility] 2017-05-17 Active Emotionally unstable personality disorder SNOMED-CT 2019-11-09 Active Obesity, unspecified 477806412 SNOMED-[facility] 2017-05-17 Active Obesity, unspecified [id number] SNOMED-[facility] 2017-05-17 Active Recurrent depressive disorder, current episode severe without psychotic symptoms 32797136 SNOMED-CT 2019-11-08 Active Emotionally unstable personality disorder SNOMED-CT 2019-11-09 Active Bipolar disorder, in partial remission, most recent episode depressed 44934758 [facility]OMED-[facility] 2017-05-17 Active Bipolar II disorder 37965705 [facility]OMED-[facility] 2019-11-09 Active Homelessness 347674838 SNOMED-CT 2021-01-02 Active Obesity, unspecified 324760925 SNOMED-[facility] 2017-05-17 Active Reactive attachment disorder of childhood 86998150 SNOMED-[facility] 2017-05-17 Active Bipolar II disorder 44141714 [facility]OM[facility] 2019-11-09 Active Depressive episode, unspecified 04482080 SNOMED-[facility] 2017-05-17 Active Reactive attachment disorder of childhood 91056747 SNOMED-CT 2017-05-17 Active Homelessness 539469921 [facility]OMED-[facility] 2021-01-02 Active Emotionally unstable personality disorder [facility]OM[facility]-CT 2019-11-09 Active Recurrent depressive disorder, current episode severe without psychotic symptoms 99102381 SNOMED-CT 2019-11-08 Active Depressive episode, unspecified 35227031 [facility]OMED-[facility] 2017-05-17 Active Recurrent depressive disorder, current episode severe without psychotic symptoms 56792219 [facility]OMED-[facility] 2019-11-08 Active Recurrent depressive disorder, current episode severe without psychotic symptoms 00915533 SNOMED-CT 2019-11-08 Active Bipolar disorder, in partial remission, most recent episode depressed 27349384 [facility]OM[facility] 2017-05-17 Active Bipolar disorder, in partial remission, most recent episode depressed 73186871 [facility]OMED-[facility] 2017-05-17 Active Bipolar disorder, in partial remission, most recent episode depressed 70270163 [facility]OMED-CT 2017-05-17 Active Obesity, unspecified 767540704 SNOMED-CT 2017-05-17 Active Reactive attachment disorder of childhood 49912145 SNOMED-CT 2017-05-17 Active Obesity, unspecified 337080792 [facility]OMED-CT 2017-05-17 Active Bipolar disorder, in partial remission, most recent episode depressed 70468268 SNOMED-CT 2017-05-17 Active Reactive attachment disorder of childhood 49576546 SNOMED-CT 2017-05-17 Active Bipolar disorder, in partial remission, most recent episode depressed 26844736 SNOMED-CT 2017-05-17 Active Reactive attachment disorder of childhood 08912760 SNOMED-CT 2017-05-17 Active Depressive episode, unspecified 27248174 [facility]OMED-CT 2017-05-17 Active Reactive attachment disorder of childhood 03331252 SNOMED-CT 2017-05-17 Active Bipolar disorder, in partial remission, most recent episode depressed 76175610 SNOMED-CT 2017-05-17 Active Obesity, unspecified 193617613 SNOMED-CT 2017-05-17 Active Bipolar II disorder 34880961 SNOMED-CT 2019-11-09 Active Bipolar II disorder 80086436 SNOMED-CT 2019-11-09 Active Relevant diagnostic tests/laboratory data Narrative No Information Procedures Procedure Name Code Code System Target Site Date of Procedure Status Service Delivery Location Device Cod e Device Name Device UID SNOMED-CT () 2017-07-[address] [address] [place] [address], [id number] SNOMED-CT () 2017-07-30 completed [facility] [place], [id number] SNOMED-CT () 2017-08-[address], [id number] SNOMED-CT () 2017-08-[address], [id number] SNOMED-CT () 2017-08-[address], [id number] SNOMED-CT () 2017-08-[address], [id number] [id number] SNOMED-CT () 2017-11-[address], [id number] SNOMED-CT () 2017-11-[address], [id number] [id number] SNOMED-CT () 2017-08-[address], [id number] SNOMED-CT () 2017-10-[address], [id number] SNOMED-CT () 2018-01-[address], [id number] [id number] SNOMED-CT () 2017-07-[address], [id number] SNOMED-CT () 2017-08-[address], [id number] [id number] SNOMED-CT () 2017-12-[address], 193769391 [id number] SNOMED-CT () 2017-07-12 [address] [address] [place] [address], [id number] [id number] SNOMED-CT () 2017-08-29 completed [facility] [address] [place], [place], [id number] [id number] SNOMED-CT () 2017-12-[address], [id number] SNOMED-CT () 2018-01-08 completed [facility] [address] [place] [address], [id number] SNOMED-CT () 2017-12-[address], [id number] SNOMED-CT () 2017-12-[address], [id number] [id number] SNOMED-CT () 2017-11-[address], [id number] SNOMED-CT () 2017-11-[address], [id number] SNOMED-CT () 2017-12-[address], [id number] SNOMED-CT () 2017-12-[address], [id number] [id number] SNOMED-CT () 2017-12-[address], [id number] [id number] SNOMED-CT () [address], [id number] [id number] SNOMED-CT () 2017-12-[address], [id number] SNOMED-CT () 2017-12-[address], [id number] [id number] SNOMED-CT () 2017-11-[address], [id number] [id number] SNOMED-CT () 2017-11-[address], [id number] [id number] SNOMED-CT () 2017-11-[address], [id number] [id number] SNOMED-CT () 2017-11-[address], 955544698 [id number] SNOMED-CT () 2017-09-[address], [id number] SNOMED-CT () 2017-09-[address], [id number] SNOMED-CT () 2017-09-[address], [id number] SNOMED-CT () 2017-09-[address], [id number] [id number] SNOMED-CT () 2017-10-[address], [id number] [id number] SNOMED-CT () 2017-10-[address], [id number] SNOMED-CT () 2017-10-[address], [id number] [id number] SNOMED-CT () 2017-10-[address], [id number] [id number] SNOMED-CT () 2017-10-[address], 580522893 [id number] SNOMED-CT () 2017-11-[address], 624641366 [id number] SNOMED-CT () 2017-11-[address], [id number] SNOMED-CT () 2017-08-[address], [id number] [id number] SNOMED-CT () 2017-08-[address], 303683738 [id number] SNOMED-CT () 2017-08-[address], [id number] SNOMED-CT () 2017-08-[address], 849401871 [id number] SNOMED-CT () 2017-09-[address], [id number] [id number] SNOMED-CT () 2017-09-[address], [id number] SNOMED-CT () 2019-08-13 completed [address] [place], [place], [id number] [id number] SNOMED-CT () 2019-10-11 completed [address] [place], [place], [address] [id number] SNOMED-CT () 2019-09-10 completed [address] [place], [place], [id number] [id number] SNOMED-CT () 2019-05-13 completed [address] [place], [place], [address] [phone] SNOMED-CT () 2019-06-11 completed [address] [place], [address] [id number] SNOMED-CT () 2019-08-13 completed [address] [place], [place], [address] [id number] SNOMED-CT () 2019-09-10 completed [address] [place], [place], [address] [id number] SNOMED-CT () 2019-10-11 completed [address] [place], [place], [id number] [phone] SNOMED-CT () 2019-12-[address] [facility] [facility] [address] [place], [address] [id number] SNOMED-CT () 2021-03-13 completed [facility] [address] [place], [place], [id number] [id number] SNOMED-CT () 2021-04-12 completed [facility] [address] [place], [address] [id number] SNOMED-CT () 2021-05-13 completed [facility] [address] [place], [address] [id number] SNOMED-CT () 2019-05-12 completed [address] [place], [place], 78[address] [id number] SNOMED-CT () 2019-12-[address] [facility] [facility] [address] [place], [place], 0[address] [phone] SNOMED-CT () 2019-05-13 completed [address] [place], [place], [address] [id number] SNOMED-CT () 2019-06-11 completed [address] [place], [place], 9[address] [id number] SNOMED-CT () 2019-08-13 completed [address] [place], [place], [address] [id number] SNOMED-CT () 2019-09-10 completed [address] [place], [place], [address] [id number] SNOMED-CT () 2019-10-11 completed [address] [place], [place], [address] [id number] SNOMED-CT () 2021-03-13 completed [facility] [address] [place], [address] [phone] SNOMED-CT () 2021-04-12 completed [facility] [address] [place], [address] [id number] SNOMED-CT () 2021-05-13 completed [facility] [address] [place], [place], 839[address] [phone] SNOMED-CT () 2021-02-13 completed [facility] [address] [place], [address] [phone] SNOMED-CT () 2019-11-[address] [facility] [facility] [address] [place], [place], [id number] [phone] SNOMED-CT () 2019-07-12 completed [address] [place], [place], [id number] [phone] Encounters/Encounter Diagnoses Encounter Name Encounter Code Diagnosis Code Diagnosis Name Diagnosis CodeSystem Date of Diagnosis Service Delivery L ocation non-billable [id number] Depressive episode, unspecified [facility]OMED[facility]CT 2021-05-[facility] , , Vital Signs No Information Social History Element Description Description Start Date End Date Code CodeSystem AdditionalInfo SexAssignedAtBirth Female [age] F [facility] Discharge Instructions * Reason For Referral Medical Equipment * FDA Assessments * Goals Section Goals Planned DateTime Yareli will reduce her utilization of inpatient psychiatric services 2021-03-12
--- OUTSIDE RECORDS SUMMARY | 2021-05-17 02:43 | CCD ---
Author Author [facility] Address Unknown Phone Unavailable Support Name Relationship Address Phone TLUIO HUTCHISON Next Of Kin [address] [facility] [address] [place] [address] LIVING, TRANSITIONAL Next Of Kin [address] [place] [address] Unavailable N, PER PT ONE Next Of Kin [address] [facility] [address] [address] WILMAR DUENAS Next Of Kin [address] [place] [address] NO ONE, PATIENT PER Next Of Kin [address] [place] [address] JOAN WOODWARD Next Of Kin Unknown Unavailable Yamileth Aleman Next Of Kin [address] [place] [address] CONTACT, NO Next Of Kin Unknown NO, CONTACT Next Of Kin Unknown U Next Of Kin Unknown Unavailable TLS, RESIDENTS [facility] Next Of Kin [address] [place] [address] Camelia Martinez Next Of Kin [address] [place] [address] UN Next Of Kin Unknown Unavailable none to, list Next Of Kin [address] [facility] [address] [place] [address] ALIZA HATCH Next Of Kin [address] [place] [address] KAREN GODFREY Next Of Kin [address] [place] [address] TL, S Next Of Kin [address] [place] [address] PEPPER TORIBIO Next Of Kin Unknown UE Next Of Kin Unknown Unavailable STEPHROLAPEPPER Next Of Kin [address] [place] [address] S Next Of Kin Unknown Unavailable Mainor HATCH Next Of Kin [address] [place] [address] ST Next Of Kin Unknown Unavailable Jorge HATCH Next Of Kin [address] [place] [address] Care Team Providers Care Transit Department Clerk Name Role Phone LaBarge, Zeyad Unavailable William Carreon Unavailable KYLIE العلي MD Unavailable Unavailable KYLIE العلي MD Unavailable Unavailable TARA CANELA MD Unavailable Unavailable TARA CANELA MD Unavailable Unavailable Fariba Sotomayor Unavailable WINNIE, A KENRICK PA Unavailable Unavailable WINNIE, A KENRICK PA Unavailable Unavailable WINNIE, A KENRICK PA Unavailable Unavailable WINNIE, A KENRICK PA Unavailable Unavailable WINNIE, A KENRCIK PA Unavailable Unavailable WINNIE, A KENRICK PA [...] ALFRED, Martita YBARRA MD Unavailable Unavailable COLLEENBOGDAN Meeks MD Unavailable Unavailable COLLEEN, BOGDAN SMITH Unavailable Unavailable COLLEEN, BOGDAN SMITH Unavailable Unavailable COLLEEN, BOGDAN SMITH Unavailable Unavailable COLLEEN, BOGDAN SMITH Unavailable Unavailable Feuga, Santiago Unavailable Feuga, Asntiago Unavailable Feuga, Santiago Unavailable Feuga, Santiago Unavailable Sohail GROVER MD Unavailable Unavailable ANSHUL STRAUSS MD Unavailable Unavailable ANSHUL STRAUSS MD Unavailable Unavailable ANSHUL STRAUSS MD Unavailable Unavailable ANSHUL STRAUSS MD Unavailable Unavailable ANSHUL STRAUSS MD Unavailable Unavailable ANSHUL STRAUSS MD Unavailable Unavailable NILOOBANEDUARDO MD Unavailable Unavailable TIARRAOOEDUARDO CARTER MD Unavailable Unavailable TIARRAOOEDUARDO CARTER MD Unavailable Unavailable NILOOEDUARDO CARTER MD Unavailable Unavailable EDUARDO JERRY MD Unavailable Unavailable NIZARRamiro MD Unavailable Unavailable NIZARRamiro MD Unavailable Unavailable NIZARRamiro MD Unavailable Unavailable NIZAR R AYAN SMITH Unavailable Unavailable NIZAR R AYAN SMITH Unavailable Unavailable NIZAR R AYAN SMITH Unavailable Unavailable NIZAR R AYAN SMITH Unavailable Unavailable NIZAR R AYAN SMITH Unavailable Unavailable NIZAR, R AYAN SMITH Unavailable Unavailable NIZAR, R AYAN SMITH Unavailable Unavailable NIZAR R AYAN SMITH Unavailable Unavailable NIZAR R AYAN SMITH Unavailable Unavailable NIZARamiro Huff MD Unavailable Unavailable NIZARamiro Huff MD Unavailable Unavailable ALBINZARamiro Huff MD Unavailable Unavailable ALBINZARamiro Huff MD Unavailable Unavailable Ramiro DIAMOND MD Unavailable Unavailable Ramiro DIAMOND MD Unavailable Unavailable Ramiro DIAMOND MD Unavailable Unavailable Sohail GROVER MD Unavailable Unavailable Sohail GROVER MD Unavailable Unavailable ManDivya baldwin FRENCH FOLDER Unavailable Unavailable Cortney, Vish FRENCH FOLDER Unavailable Cortney, Vish FRENCH FOLDER Unavailable Cortney, Vish FRENCH FOLDER Unavailable Mariam HICKS MD Unavailable Unavailable Mariam [...] Unavailable Mariam HICKS MD Unavailable Unavailable Gonzalo Colbert Unavailable Gonzalo Colbert Unavailable Gonzalo Colbert Unavailable Capogreco, D Leeroy Unavailable Capogreco, D Leeroy Unavailable Capogreco, D Leeroy Unavailable Capogreco, D Leeroy Unavailable WILLIAM CARREON MD Unavailable Unavailable COLBY, LATTER DAY Unavailable Unavailable COLBY, LATTER DAY MD Unavailable Unavailable BOWMAN, LATTER DAY MD Unavailable Unavailable BOWMAN, LATTER DAY MD Unavailable Unavailable BOWMAN, LATTER DAY MD Unavailable Unavailable BOWMAN, LATTER DAY MD Unavailable Unavailable BOWMAN, LATTER DAY MD Unavailable Unavailable BOWMAN, LATTER DAY MD Unavailable Unavailable Estrada, P Velasquez Unavailable Estrada, P Velasquez Unavailable SYSTEM IN, NOT PROVIDER Unavailable Unavailable Janette Martinez MD Unavailable Unavailable Nicole Grant MD Unavailable Unavailable Nicole Grant MD Unavailable Unavailable Nicole Grant MD Unavailable Unavailable Rudy K Makry MD Unavailable Unavailable Rudy K Marky MD [...] K Marky MD Unavailable Unavailable Nicole Kent PMH-FRENCH FOLDER Unavailable Unavailable Nicole Kent PMH-FRENCH FOLDER Unavailable Unavailable Nicole Kent Tammie PMH-FRENCH FOLDER Unavailable Unavailable Nicole Kent PMH-FRENCH FOLDER Unavailable Unavailable Nicole Kent PMH-FRENCH FOLDER Unavailable Unavailable Donte, K Tammie PMH-FRENCH FOLDER Unavailable Unavailable Nicole Kent Tammie PMH-FRENCH FOLDER Unavailable Unavailable Nicole Kent Tammie PMH-FRENCH FOLDER Unavailable Unavailable Maria De Jesus RIBEIRO Unavailable Unavailable NILS ARGUETA MD Unavailable Unavailable Ramiro Argueta MD Unavailable Unavailable Ramiro Argueta MD Unavailable Unavailable Ramiro Argueta MD Unavailable Unavailable Ramiro Argueta MD Unavailable Unavailable Ramiro Argueta MD Unavailable Unavailable Ramiro Argueta MD Unavailable Unavailable Ramiro Argueta MD Unavailable Unavailable Ramiro Argueta MD Unavailable Unavailable Ramiro Argueta MD Unavailable Unavailable Ramiro Argueta MD Unavailable Unavailable Gonzalo COLBERT . Unavailable Unavailable Martin Negron FRENCH FOLDER Unavailable Unavailable Sohail Muñoz MD Unavailable Unavailable Sohail Muñoz MD Unavailable Unavailable Sohail Muñoz MD Unavailable Unavailable MIO, YOALNDE MD Unavailable Unavailable MIO, YOLANDE MD Unavailable [...] Unavailable Macario, F Zaki PA Unavailable Unavailable [place], F Zaki PA Unavailable Unavailable [place], F Zaki PA Unavailable Unavailable Macario, F Zaki PA Unavailable Unavailable Macario, F Zaki PA Unavailable Unavailable [place], F Zaki PA Unavailable Unavailable [place], F Zaki PA Unavailable Unavailable Macario, F Zaki PA Unavailable Unavailable Macario, F Zaki PA Unavailable Unavailable ZEGIL, D THERESA SURGEON'S ASSISTANT Unavailable Unavailable ZEGIL, D THERESA SURGEON'S ASSISTANT Unavailable Unavailable ZEGIL, D THERESA SURGEON'S ASSISTANT Unavailable Unavailable AL-Silvio, Ramón MD Unavailable Unavailable AL-Silvio, Ramón MD Unavailable Unavailable AL-Silvio, Ramón MD Unavailable Unavailable AL-Silvio, Ramón MD Unavailable Unavailable AL-Silvio, Ramón MD Unavailable Unavailable AL-Silivo, Ramón MD Unavailable Unavailable AL-Silvio, Ramón MD Unavailable Unavailable RAJASEKARAN, PAKKAM MD Unavailable Unavailable RAJASEKARAN, PAKKAM MD Unavailable Unavailable RAJASEKARAN, PAKKAM MD Unavailable Unavailable RAJASEKARAN, PAKKAM MD Unavailable Unavailable RAJASEKARAN, PAKKAM MD Unavailable Unavailable RAJASEKARAN, PAKKAM MD Unavailable Unavailable RAJASEKARAN, PAKKAM MD Unavailable Unavailable Pedro ESTRADA Unavailable Unavailable Janette Martinez MD Unavailable Unavailable [...] is protected by Article 27-F of the [facility] Public Health law. If you continue you may have access to information: Regarding HIV / AIDS; Provided by facilities licensed or operated by the [facility] Office of Mental Health; or Provided by the [facility] Office for People With Developmental Disabilities. If such information is present, then the following [facility] mandated warning applies: This information has been [...] law may result in a fine or nursing home sentence or both. A general authorization for the release of medical or other information is NOT sufficient authorization for further disc losure. Allergies and Adverse Reactions Type Description Substance Reaction Status Data Source(s ) Drug allergy Drug allergy risperidone Unknown Reaction [facility] Drug allergy Drug allergy haloperidol (From Haldol) Unknown Reaction [facility] Propensity to adverse reactions to substance Risperdal Risperidone 1 MG Oral Tablet [Risperdal] Active [facility] Drug allergy risperidone risperidone ADDITIONAL [facility]IF[facility] Drug allergy haloperidol haloperidol ADDITIONAL UNSPECIFIED [facility] SEASONAL ALLERGIES SEASONAL ALLERGIES [facility] ([facility]) No Allergies No Allergies [facility] ([facility]) No allergies to food No allergies to food [facility] ([facility]) NKDA NKDA [facility] ([facility]) Drug allergy haloperidol [facility]ol [facility] Family History Family Member Name Family Member Gender Family Member Status Date o f Status Description Data Source(s) Unknown Male Condition Family Member ADD / ADHD S [facility] Encounters Encounter Providers Location Date Indications Data Source(s ) Inpatient Attender: DYLAN Michelle er: BROOKLYN ONEILL MDAttender: ZEESHAN GROVER MDAdmitter: BROOKLYN ONEILL MD ER-3RD 05/13/2021 11:10:00 PM EDT - 05/15/2021 11:10:00 AM EDT [facility] Patient discharged. [facility]billable [facility] 05/12/2021 12:00:00 AM EDT [facility] ([facility]) Inpatient Attender: BROOKLYN ONEILL MDAttender: ZEESHAN GROVER MDAdmitter: BROOKLYN ONEILL MD ER-3RD 05/06/2021 02:17:00 PM EDT - 05/08/2021 04:22:00 PM EDT [facility] Patient discharged. Emergency Attender: THERESA BARAHONA [facility] ED-ED 04/12 07:56:00 PM EDT - 05/05/2021 11:21:00 PM EDT suicidal ideation [facility] suicidal ideation Patient discharged. Inpatient Attender: BOGDAN MACIAS MDAtten víctor: DYLAN RIBEIROAttender: BROOKLYN ONEILL MDAttender: KYLIE العلي MDAdmitter: BROOKLYN ONEILL MD ER-3RD 05/01/2021 04:51:00 PM EDT - 05/05/2021 11:59:00 AM EDT [facility] Patient discharged. Emergency Attender: Zaki OWENS ED-ED 01:54:00 AM EDT - 05/01/2021 09:45:00 AM EDT PSYCHIATRIC [facility] PSYCHIATRIC Patient discharged. Emergency Attender: Zaki OWENS ED-ED 11:28:00 PM EDT - 05/01/2021 01:25:[address] [facility] DEPRESSION Patient discharged. Emergency Attender: Angelica Martinez MDAttender: Angelica Martinez MD ED-ED 04/30/2021 07:03:00 PM EDT - 04/30/2021 10:30:[address] [facility] DEPRESSION Patient discharged. Inpatient Attender: BOGDAN MACIAS MDAtten víctor: BROOKLYN ONEILL MDAttender: Ramón Levy MDAdmitter: BROOKLYN ONEILL MD ER-3RD 04/27/20 04:51:00 AM EDT - 04/30/2021 02:30:00 PM EDT [facility] Patient discharged. Inpatient Attender: BROOKLYN ONEILL MDAttender: Ramón Levy MDAdmitter: BROOKLYN ONEILL MD ER-3RD 04/26/2021 02:30:00 AM EDT - 04/26/2021 03:15:00 PM EDT [facility] Patient discharged. Emergency Attender: LAUREEN LUIS ES1-CP2 021 01:05:00 PM EDT - 04/24/2021 04:29:00 PM EDT [facility] Patient discharged. Emergency Attender: Zaki OWENS ED-ED 08:53:00 PM EDT - 04/24/2021 11:08:00 AM EDT SUICIDAL THOUGHTS,ANXIETY [facility] SUICIDAL THOUGHTS,ANXIETY Patient discharged. Emergency Attender: Ramón Levy MD ER-ER 1 10:29:00 PM EDT - 04/21/2021 03:43:00 PM EDT [facility] Patient discharged. Emergency Attender: ZEESHAN GROVER MD ER-ER 03/2021 01:17:00 AM EDT - 04/19/2021 02:55:00 PM EDT [facility] Patient discharged. Emergency Attender: KENRICK ZHOU PAAttender: Zaki OWENS ED-ED 04/17/2021 01:21:00 AM EDT - 04/17/2021 01:48:00 PM EDT CONSUMED CLEANING AGENT [facility] CONSUMED CLEANING AGENT Patient discharged. non-billable [facility] 04/14/2021 12:00:00 AM EDT [facility] ([facility]) Emergency Attender: Nils Argueta MD ER-ER 2020 08:28:00 PM EDT - 04/14/2021 04:43:00 PM EDT [facility] Patient discharged. Emergency Attender: THERESA BARAHONA [facility] ED-ED 08/2020 03:11:00 AM EDT - 04/13/2021 06:45:00 PM EDT THINKING OF SELF HARM [facility] THINKING OF SELF HARM Patient discharged. Inpatient Attender: BOGDAN MACIAS MDAttjef víctor: ZEESHAN GROVER MDAdmitter: BOGDAN MACIAS MD ER-3RD 04/09/2021 12:50:00 PM EDT - 04/11/2021 10:46:00 AM EDT [facility] Patient discharged. Inpatient Attender: Deejay OWENS-preparing box tender: JOSE HICKS MDAttender: Leeroy NinaoAttender: LEEROY COLBERT .Admitter: JOSE HICKS MDReferrer: JOSE HICKS MD [id number] 04/05/2021 12:00:00 AM EDT - 04/07/2021 12:21:00 PM EDT [facility] suicidal Patient discharged. Emergency Attender: LAUREEN LUIS ES1-CP2 021 11:17:00 PM EDT - 04/04/2021 01:56:00 PM EDT [facility] Patient discharged. Inpatient Attender: BOGDAN Hassan víctor: BROOKLYN ONEILL MDAttender: Nils Argueta MDAdmitter: BROOKLYN ONEILL MD ER-3RD 04/01/2021 0 6:08:00 PM EDT - 04/03/2021 10:22:00 AM EDT [facility] Patient discharged. Emergency Attender: KENRICK ZHOU PAAttender: Zaki OWENS ED-ED 03/27/2021 10:08:00 PM EDT - 03/30/2021 06:15:00 AM EDT SUICIDAL THOUGHTS,ANXIETY [facility] SUICIDAL THOUGHTS,ANXIETY Patient discharged. Emergency Attender: Leeroy RUIZttender: Leeroy OWENS ED-ED 03/25/2021 08:09:00 PM EDT - 03/25/2021 11:25:00 PM EDT MENTAL HEALTH ISSUES [facility] MENTAL HEALTH ISSUES Patient discharged. Inpatient Attender: Velasquez Lemos er: VELASQUEZ Richmondender: TARAH BOWMAN MDAdmitter: TARAH BOWMAN MD [id number] 03/21/2021 02:54:00 AM EDT - 03/24/2021 12:21:00 PM [facility] Patient discharged. Psychiatric Diagnostic Evaluation (Non-Medical) Attender: Rosa larios [facility] 03/20/2021 01:00:00 AM EDT - 03/20/2021 01:00:00 AM EDT [facility] ([facility]) Emergency Attender: THERESA BARAHONA [facility] ED-ED 03/2021 12:32:00 AM EDT - 03/20/2021 01:00:00 AM EDT MENTAL HEALTH ISSUES [facility] MENTAL HEALTH ISSUES Patient discharged. Attender: Zeyad Kovacsremi 03/20/2021 12:00:00 AM EDT [facility] ([facility]) Outpatient Attender: Darren Negron NP 03/17/2021 09:0 7:00 PM EDT Amb Documentation [facility] Amb Documentation Outpatient Attender: Darren Negron NPAdm itter: Divya Orozco NPConsultant: Divya Orozco NP 03/16/2021 09:50:00 PM EDT Su[facility] Ideations [facility] Suicidal Ideations Inpatient Attender: Divya Orozco NPAdmitter: Divya gonzales NP 03/16/2021 09:50:00 PM EDT - 03/19/2021 11:43:00 AM EDT [facility] Su[facility] Ide[facility] Patient discharged. Outpatient Attender: Vish Barr NPAd mitter: Divya Orozco NPConsultant: Divya Orozco NP 03/16/2021 09:50:00 PM EDT [facility] Suicidal Ideations Outpatient Attender: Divya Orozco NPA dmitter: Divya Orozco NPConsultant: Divya Orozco NP 03/16/2021 09:50:00 PM EDT [facility] Suicidal Ideations Emergency Attender: Anoop Bowman ER-ER 03/16/20 05:07:00 AM EDT - 03/16/2021 07:30:00 PM EDT [facility] Patient discharged. Emergency Attender: Leeroy OWENS ED-ED 021 11:49:00 PM EDT - 03/16/2021 01:34:00 AM EDT MEDICATION SWITCH FOR MENTAL HEALTH [facility] MEDICATION SWITCH FOR MENTAL HEALTH Patient discharged. IP PSYCH Attender: WADE KELLEY MD Attender: YOLANDE LIEBERMAN MDAttender: Marky Grant MDAdmitter: YOLANDE LIEBERMAN MDConsultant: William CoeirConsultant: WILLIAM CARREON MD [id number] 03/13/2021 11:02:00 AM EDT - 03/15/2021 01:22:[address] [facility] Patient discharged. non-billable [facility] 03/12/2021 12:00:00 AM EDT [facility] ([facility]) Emergency Attender: Leeroy Dawn PAAttender: KENRICK OWENS ED-ED 03/05/2021 06:28:00 PM EDT - 03/06/2021 01:47:00 PM EDT MENTAL HEALTH ISSUES [facility] MENTAL HEALTH ISSUES Patient discharged. Emergency Attender: Ramirez Muñoz MD ED-ED 03/03/20 12:40:00 AM EDT - 03/03/2021 09:59:00 AM EDT MENTAL [facility] MENTAL HEALTH Patient discharged. Emergency Attender: Nils Argueta MD ER-ER 2020 02:30:00 AM EDT - 03/02/2021 11:27:00 AM EDT [facility] Patient discharged. Emergency Attender: Nils Argueta MD ER-ER 2020 09:08:00 PM EDT - 03/01/2021 12:39:00 PM EDT [facility] Patient discharged. Outpatient [address] [place] [address] [id number]-Mobile Integration Team 02/27/2021 02:45:00 PM EDT [facility] Patient admitted. Inpatient Attender: AYAN Clifton nder: Velasquez EstradaAttender: VELASQUEZ ESTRADAAdmitter: AYAN DIAMOND MDReferrer: PROVIDER SYSTEM IN [id number] 02/21/2021 12:14:00 PM EDT - 02/25/2021 11:39:00 AM EDT [facility] Patient discharged. Emergency Attender: Ramón Levy MD ER-ER 0 02/20/2021 10:45:00 PM EDT - 02/21/2021 11:44:00 PM EDT [facility] Patient discharged. Emergency Attender: Ramón Levy MD ER-ER 0 02/19/2021 02:28:00 AM EDT - 02/19/2021 10:15:00 AM EDT [facility] Patient discharged. Emergency Attender: Anoop Bowman ER-ER 02/18/20 03:10:00 AM EDT - 02/17/2021 01:54:00 PM EDT [facility] Patient discharged. Emergency Attender: Santiago RajanAttender: Anoop Hayward R-ER 02/15/2021 08:00:00 PM EDT - 02/16/2021 01:02:00 PM EDT [facility] ospital Patient discharged. Emergency Attender: KENRICK OWENS ED-ED 02/14 09:21:00 PM EDT - 02/14/2021 11:01:00 PM EDT VOMITING,DIARRHEA [facility] VOMITING,DIARRHEA Patient discharged. Inpatient Attender: DYLAN Michelle er: BROOKLYN ONELIL MDAttender: AMADA SIMON MDAttender: KYLIE العلي MDAdmitter: AMADA SIMON MD ER-3RD 01/03/2021 11:03:00 AM EDT - 02/13/2021 11:40:00 AM EDT [facility] Patient discharged. Outpatient Attender: Tammie Kent [facility]FRENCH FOLDER [place] [facility] zacarias [facility] 11/13/2020 09:30:00 AM EDT - 11/13/2020 09:30:00 AM EDT [facility] ([facility]) Attender: Tammie EVANS-FRENCH FOLDER 11/13/2020 12: 00:00 AM EDT [facility] ([facility]) Inpatient Attender: BROOKLYN ONEILL MDAttender: BOGDAN MACIAS MDAttender: KYLIE العلي MDAdmitter: BOGDAN MACIAS MD ER-3RD 10/31/2020 0 8:49:00 AM EDT - 01/01/2021 01:05:00 PM EDT [facility] Patient discharged. Outpatient [id number] 10/29/2020 09:35:00 PM EDT Psych [facility] Psych Inpatient Attender: ZEESHAN GROVER MD Attender: BROOKLYN ONEILL MDAttender: ANSHUL STRAUSS MDAdmitter: BROOKLYN ONEILL MD ER-3RD 10:58:00 AM EDT - 10/29/2020 12:50:00 PM EDT [facility] Patient discharged. Extended Individual Psychotherapy - 45 min Attender: [facility]in [facility] 08/27/2020 11:00:00 AM EST - 08/27/2020 11:00:00 AM EST [facility] ([facility]) Attender: [facility] 08/27/2020 12:00:00 AM EST [facility] ([facility]) Psychiatric Diagnostic Evaluation (Non-Medical) Attender: Rosa larios [facility] 08/23/2020 10:00:00 AM EST - 08/23/2020 10:00:00 AM EST [facility] ([facility]) Attender: [facility] 08/23/2020 12:00:00 AM EST [facility] ([facility]) Outpatient Referrer: FORTUNATO BUTCHER DO 07/11/2020 02 :52:00 PM EST suicide attempt, borderline personality disorder, depression [facility] suicide attempt, borderline personality disorder, depression Extended Individual Psychotherapy - 45 min Attender: Jessica Sotomayor [facility] 06/24/2020 11:00:00 AM EST - 06/24/2020 11:00:00 AM EST [facility] ([facility]) Attender: Fariba Sotomayor 06/24/2020 12:00:00 AM EST [facility] ([facility]) Inpatient Attender: FILI Oliva tender: Nils Argueta MDAttender: NILS ARGUETA MDAdmitter: FILI CANELA MD ER-3RD 06/15/2020 04:05: 00 AM EST - 06/17/2020 01:23:00 PM EST [facility] Patient discharged. Inpatient Attender: BOGDAN Hassan víctor: BROOKLYN ONEILL MDAttender: KYLIE العلي MDAdmitter: BROOKLYN ONEILL MD ER-3RD 12/2019 09:22:00 PM EDT - 05/17/2020 08:58:00 AM [facility] Patient discharged. Inpatient Attender: EDUARDO Ricketts MDAttender: BOGDAN MACIAS MDAttender: AMADA SIMON MDAdmitter: AMADA SIMON MD ER-3RD 020 10:06:00 PM EDT - 12/13/2019 10:30:00 AM EDT [facility] Patient discharged. Inpatient Attender: BOGDAN MACIAS MDAtten víctor: FILI CANELA MDAttender: Ramón Anguiano MDAdmitter: BOGDAN MACIAS MD ER-3RD 11/02/2019 10:24:00 AM EDT - 11/08/2019 12:07:00 PM EDT [facility] Patient discharged. Inpatient Attender: BOGDAN MACIAS MDAtten víctor: BROOKLYN ONEILL MDAttender: AMADA SIMON MDAttender: ANSHUL STRAUSS MDAdmitter: AMADA SIMON MD ER-3RD 08/04/2019 06:28:00 PM EST - 08/11/2019 11:25:00 AM [facility] Patient discharged. Emergency Attender: ANSHUL STRAUSS MD ER-ER 1 07/13/2017 06:59:00 PM EDT - 05/18/2018 06:04:00 PM [facility] Emergency Attender: EDUARDO JERRY MD ER-ER 04/12/2018 05:21:00 PM EDT - 04/16/2018 06:48:00 PM EDT [facility] Immunizations Vaccine Date Status Description Data Source(s) COVID-19 VACCINE [facility] 11/12/2020 12:00:00 AM EDT completed [facility] Vaccine Series Complete: YESThis Data wa s Submitted to [facility] Via [employer]. Medications Medication Brand Name Start Date Product Form Dose Route Admi nistrative Instructions Pharmacy Instructions Status Indications Reaction Description Data Source(s) Sertraline 50 MG Oral Tablet sertraline (ZOLOFT) table t 50 mg sertraline (ZOLOFT) tablet 50 mg 04/07/2021 10:45:00 AM EDT 50 mg Oral active 50 mg, Oral, Daily Standard, First dose on 04/07/21 at 1045, For 30 days [facility] Medication administered onsite aripiprazole 5 MG Oral Tablet ARIPiprazole (ABILIFY) t ablet 10 mg ARIPiprazole (ABILIFY) tablet 10 mg 04/07/2021 10:45:00 AM EDT 10 mg Oral active 10 mg, Oral, Daily Standard, First dose on 04/07/21 at 1045, For 30 days [facility] Medication administered onsite Sertraline 50 MG Oral Tablet Sertraline HCl 50 MG Oral Tablet (ZOLOFT) Sertraline HCl 50 MG Oral Tablet (ZOLOFT) 04/07/2021 12:00:00 AM EDT active Take 50 mg for 2 day s, then increase to 100 mg on 04/10, and increase to 150 mg on 04/13. [facility] olanzapine 5 MG/ML Injectable Solution OLANZapine (ZYP REXA) injection 10 mg OLANZapine (ZYPREXA) injection 10 mg 04/06/2021 10:45:00 PM EDT 10 mg Intramuscular completed 10 mg, Intr amuscular, Once, On 04/06/21 at 2245, For 1 dose
Reconstitute 10 mg vial with 2.1 mL SWFI; resulting solution is ~5 mg/mL; Use within 1 hour following reconstitution.
[facility] Medication administered onsite Prazosin 1 MG Oral Capsule prazosin (MINIPRESS) capsul e 1 mg prazosin (MINIPRESS) capsule 1 mg 04/05/2021 10:00:00 PM EDT 1 mg Oral active 1 mg, Oral, Nightly, First dose on 04/05/21 at 2200, For 30 days
Check vital signs before administering
[facility] Medication administered onsite olanzapine 10 MG Oral Tablet OLANZapine (ZYPREXA) tabl et 10 mg OLANZapine (ZYPREXA) tablet 10 mg 04/05/2021 07:40:57 PM EDT 10 mg Oral active 10 mg, Oral, Every 2 hours PRN, Agitation, MDD 20 mg, Starting on 04/05/21 at 1940, For 30 days [facility] Medication administered onsite Ibuprofen 400 MG Oral Tablet ibuprofen (MOTRIN) tablet 400 mg ibuprofen (MOTRIN) tablet 400 mg 04/05/2021 07:34:02 PM EDT 400 mg Oral act shea 400 mg, Oral, Every 6 hours PRN, Moderate Pain (Pain Scale Score 4-6), Headaches, Starting on 04/05/21 at 1934, For 30 days
Take with food.
[facility] Medication administered onsite multivitamin tablet 1 tablet [id number] 04/05/2021 08:00:00 AM EDT 1 {tbl} Oral active 1 tablet, Oral , Daily Standard, First dose on 04/05/21 at 0800, For 30 days [facility] Medication administered onsite Nicotine 2 MG Oral Lozenge nicotine (NICORETTE) lozeng e 2 mg nicotine (NICORETTE) lozenge 2 mg 04/05/2021 06:25:36 AM EDT 2 mg Mouth/Th roat active 2 mg, Mouth/Throat, Every 2 hours PRN, Smoking cessation, Starting on 04/05/21 at 0625, For 30 days
Should not be chewed or swallowed; allow to dissolve slowly (~20-30 minutes)
[facility] Medication administered onsite Ondansetron 4 MG Disintegrating Oral Tab let ondansetron (ZOFRAN-ODT) disintegrating tablet 4 mg ondansetron (ZOFRAN-ODT) disintegrating tablet 4 mg 04/05/2021 06:25:36 AM EDT 4 mg Oral active 4 mg, Oral, Every 6 hours PRN, Nausea, Starting on 04/05/21 at 0625, For 30 days
Dissolve on tongue.
[facility] Medication administered onsite Magnesium Hydroxide 80 [...] creatinine > 2 notify provider before administering.
[facility] Medication administered onsite Acetaminophen 325 MG [...] mg from all sources in 24 hrs.
[facility] Medication administered onsite Hydroxyzine Hydrochloride 50 MG Oral Tablet hydrOXYzin e (ATARAX) tablet 50 mg hydrOXYzine (ATARAX) tablet 50 mg 04/05/2021 06:25:35 AM EDT 50 mg Oral active 50 mg, Oral, Every 6 hours PRN, Anxiety, Sleep, Starting on 04/05/21 at 0625, For 30 days [facility] Medication administered onsite Aluminum Hydroxide 40 [...] at 0625, For 30 days
MDD 4
[facility] Medication administered onsite Melatonin 5 MG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 Flow NtuiIwN1Bkpfnsob ExaminationGeneral Appearance no acute distress, afebrile, alert, [...] affect, normal judgementData ReviewLaboratory DataReviewed from the 16[facility] Hospitalessment/PlanDiagnosis/Problem1. SUICIDAL IDEATIONS; CHRONIC2. Borderline personality disorderStatus [...] SIGNED: 05/02/21 Electronically SignedTIME SIGNED: 1503 THERESA COOPER Name Value Range Interpretation Code Description Data Stephanie rce(s) Supporting Document(s) ID Date Data Source [id number] 05/02/2021 01:42:[address] PM EDT [address] HEALTH PROGRESS NOTEPATIENT NAME: YARELI HATCH PHYSICIAN: DYLAN RIBEIROAUTHOR: Lana Aquino. DATE: 05/01/21 MR#: [id number] NOTE DATE: 05/02/21 RM#: [id number] TIME: 1348 is a 89-kflsd-vnf white female.CC/Hx Present Illness"I was not ready for the discharge."Events Since Last EntryPatient met with myself, Cata the ad operations coordinator, Neelam the charge nurse,and Ryan mental health worker to discuss today's events. Patient was placedinto restraints this a.m. after she was told she was on a one-to-one due toself-injurious behaviors and thoughts of wanting to harm herself. Once thepatient was informed of that she became very obstinate and defiant. Dalila said "I will not be on a [...] and appropriate all the while remaining in [facility] nurses station. After the 24 [...] the weekendshe is a potential discharge for WednesdayDA SIGNED: 05/02/21 Electronically SignedTIME SIGNED: 1348 DYLAN RIBEIRO Name Value Range Interpretation Code Description Data Stephanie rce(s) Supporting Document(s) ID Date Data Source [id number] 05/01/2021 02:56:00 PM EDT [place] [id number] DISCHARGE SUMMARYPATIENT NAME: YARELI HATCH MR#: [id number] PHYSICIAN: BOGDAN MACIAS MDAUTHOR: Bogdan Macias MD DATE: 04/27/21 #: [id number] DATE: 04/30/21HistoryIdentificationThiselena is a 88-qmigl-pgu white female.Chief Complaint"I was not ready for [...] IllnessYareli was seen today along with the ad operations coordinator, Gloria, and a PAstudent from [facility]. She presented to the ER with the complaint ofincreased depression a nd suicidal ideations with plan to hang herself or towalk into a car. She has experiences similar symptoms in the past, severaltimes. She recently had one day admission to mental health unit with the samecomplaint of suicidal ideations on 04/26/2021. [facility] and reports that now she realizes [...] 04/26/2021. [facility] She has a history of [...] her GED. Patient has never worked in the[employer]. Patient currently lives at [facility] living facility and is on an [...] Dr. Patten, treatment care were providedby Dr. Macias, during this course of treatment, patient expressed [...] situation she would prefer to go backto [facility] as well. She was also talking about reaching out for further help andshe was also expressing that she also feels comfortable coming back into theemergency room or the hospital that she had done it multiple times in the pastas well. She was somewhat upset at [facility] regarding not being able to give [...] taking the following medications:SERTRALINE (Zoloft*) 50 MG [id number] MILLIGRAM Orally DAILY Days = 30 Qty = 30Aripiprazole* (Abilify*) 10 MG ZEFHOU48 MILLIGRAM Orally DAILYOlanzapine* (Zyprexa*) 5 MG TABLET5 MILLIGRAM Orally 2100 Qty = 30Continue taking these medications:IBUPROFEN (IBUPROFEN) 400 MG SOHJPP391 MILLIGRAM Orally EVERY 6 HOURS NEEDED as needed for HeadacheQty = 21Loratadine* (Claritin*) 10 MG UEIFAX80 MILLIGRAM Orally DAILYDays = 30 Qty = 30PROPRANOLOL HCL (Inderal*) 10 MG TTUZYK07 MILLIGRAM Orally TWICE DAILYDays = 30 Qty = 60TOPIRAMATE (TOPAMAX) 25 MG CRJNZO28 MILLIGRAM Orally DAILYDays = 60 Qty = 30MONTELUKAST SODIUM (MONTELUKAST) 10 MG PXHDLJ30 MILLIGRAM Orally DAILYDays = 30 Qty = 30PRAZOSIN HCL (PRAZOSIN HCL) 2 MG CAPSULE2 MILLIGRAM Orally AT BEDTIMEStart taking the following new medications:SERTRALINE (Zoloft*) 50 MG XOBPGT81 MILLIGRAM Orally DAILYQty = 20Refills = 1The following medications have been changed:Old:Aripiprazole (Abilify Maintena) 400 MG SUSER.GXF220 MILLIGRAM Intramuscularly Z16MMzw = 1New:Aripiprazole (Abilify Maintena) 400 MG SUSER.XQZ429 MILLIGRAM Intramuscularly M66XLla = 1Instructions:last im inj received 04/30/21Discharge Activity: As toleratedDischarge diet: RegularFollow- upFollow up with your Primary care physicianFollow-up with therapist and psychiatrist as recommendedAlso recommended outpatient chemical dependencyReferralsOrdered ReferralsCOMMUNLA [place] [address] Video appointment through [facility] (#[phone]) onTMay 01 at 4:00 pm withGrayson.[place] [place] [address] Video appointment through [facility] (#[phone]) onTMay 27 at 9:30 [address] Giles.DATE SIGNED: 05/01/21 Electronically SignedTIME SIGNED: 1502 BOGDAN MACIAS MD Name Value Range Interpretation Code Description Data Stephanie rce(s) Supporting Document(s) ID Date Data Source [id number] 05/01/2021 02:17:00 PM EDT [facility] PSYCHIATRIC ASSESSMENTPATIENT NAME: YARELI HATCH MR#: [id number] PHYSICIAN: BROOKLYN ONEILL MDAUTHOR: Surendra SMITH,P. DATE: 05/01/21 #: 3RDHistoryIdentificationThis is a 21-gjyiv-hef white female.Chief Complaint"I was not ready for [...] today along with a PA student from [facility].She presented to the ER as a transfer from [facility] for suicidalideations with plan to strangle herself or overdose. Patient reported that shewas discharged from [facility] on 04/30/21 and found out that her cousin hadpassed away from an overdose. Patient reported she brought herself [facility] for suicidal ideations. [facility] She also stated she was [...] 04/30/2021. Patient spent most of her childhood [facility] psychiatric facilities. She has a history of [...] her GED. Patient has never worked in [employer]. Patient currently lives at [facility] [...] rce(s) Supporting Document(s) ID Date Data Source [id number] 05/01/2021 06:20:00 PM EDT [place] [facility] Physician DocumentationClaxton-Naveen Hinkle edical CenterName: Yareli Mejiage: 20 yrsSex: FemaleDOB: 2000MRN: [id number] Date: 05/01/2021Time: 10:40Account#: [id number] MD: NONE, - Per PatientED Physician [...] suicidal ideation. Justrecentlydischarged and evidently went into [facility] with a chief complaint ofsuicidalideation. She [...] 400 mg intramuscular suspension,extended release syringe 400 days8. sertraline 50 mg oral tablet 1 [...] Temp 96.7(T); Pulse Ox 98% on R/A; Ztcbrm480.33 kg; klpHeight 5 ft. 6 in. ; Pain 0/10;18:19 BP 145 / 91; Pulse 96; Resp 17; Temp 97.3; Pulse Ox 96% ; Pain 0/10;wd110:42 Body Mass Index 37.12 (104.33 kg, 167.64 cm)klp10:42 Pain Scale: Wnvrdqpr87:19 Pain Scale: Tufyqzh3WYX:11:28 Patient medically screened.se15:35 Data reviewed: vital signs, nurses notes, diagnostic data from outsidefacility, old semedical records. ED course: Outside studies were reviewed. The case wasdiscussed withJIMY Buckley as well as Dr. Patten..04/2110:48 Order name: VS q shift; Complete Time: 16:44wds62/2110:48 Order name: Observation Level 3; Complete Time: 12:31wwa06/2111:28 Order name: Medically Cleared for Eval by- Psychosocial, Cd Mixer Helper (YE);Complete Time: se17::40 Order name: Observation Level 4; Complete Time: 12:40klpDispensed Medications:No medications were administeredSignatures:Елена Hugo RN RN klpElliott, Suzanne, MD MD seCorrections: (The following items were deleted from the chart)11:01 10:59 Home Meds: inderal 10 mg twice a day; vrehjy56:58 11:30 Musculoskeletal/extremity: AT, PITT. sese Name Value Range Interpretation Code Description Data Stephanie rce(s) Supporting Document(s) ID Date Data Source [id number] 05/01/2021 06:20:00 PM EDT [facility] Nurse's NotesClaxton-Tracy City Medical Tootie terName: Yareli DuvallAge: 20 yrsSex: FemaleDOB: 2000MRN: [id number] Date: 05/01/2021Time: 10:40Account#: [id number] MD: NONE, - Per PatientDiagnosis: Major depressive disorder, recurrent, unspecifiedPresentation:04/2110:40 Presenting complaint: EMS states: transferred from [facility] for psycheval suicidal klpideations. International Travel Fever No. Coronavirus Screening: Have you beendiagnosed with COVID-19 in the past 30 days? no Are you currently on quarantinebyPublic Health? no Flu-like symptoms reported in the last 14 days: no. Have youhadclose contact with confirmed or suspected COVID-19 case? no Do you live in asettingwhere a large of amount of people live, such as intermediate, family care,nursing home, etc?no. Have you traveled to a location with widespread or ongoing COVID-19communityspread or outside of [facility]? no Have you traveled internationally or hadcontact withsomeone that has traveled and has been ill in the past 3 weeks? no Have youreceivedthe COVID vaccine? Yes. Communicable Disease Screen: Negative for fever>/= 100degreesFahrenheit. Communicable disease screen is negative. (-) rash or unusual skinlesion.Communication Speaks Wallisian? Yes, is preferred language.10:40 Acuity: Triage 2klp10:40 Method Of Arrival: Ambulance: [place] Twrdnhlhw88:41 Acuity Assignment: Triage 2klpTriage Assessment:10:42 General: Appears [...] 400 mg intramuscular suspension,extended release syringe 400 qpobrcq90 days8. sertraline 50 mg oral tablet 1 tab daily- PMHx: ADHD; ANXIETY; BIPOLAR DISORDER; Depressive disorder; ptsd;- Immunization history: Flu vaccine is not up to date.- Social history: Smoking status: Vaping ETOH status Denies use of ETOH.- Advance Directives:: None.Screenin:52 Abuse screen: Denies threats or abuse. Nutritional screening: No deficitsnoted. Offer [facility] HIV testing: patient was previously [...] around her neck. upset afterspeaking to father Aldera phone. sheet removed and pt placed on 1:1.15:37 Reassessment: Patient appears in no apparent distress at this time.kn6Rkeyhgexmjlg:11:03 SAFE Act Report Not Completed. Intervention: Observation Level 3. Mentalhealth consult am11is initiated at 11:03. Referral Information: Evaluation referral is [facility]. The patient was referred for evaluation because suicidalideationswith a plan to strange self or overdose.11:25 Subjective: The patients chief complaint is suicidal ideations. Ptpresents to the ED am11as a transfer from [facility] for suicidal ideations. Pt [facility]ce[facility] and found out that her cousin had passedaway froman overdose. Pt reports she brought herself to [facility] for suicidalideations. Pt states she eloped from [...] being yesterday. [facility] Pt [...] history of anxiety, Bipolar Disorder, Depression, panicattacks, rw11ibxl-ajeggjomy stress disorder, self -mutilation, sleep disturbance, suicideattempt:overdose in February 2020 Mental Health Admissions: multiple last discharged TTDTTUA47/20/21 Current Outpatient Mental Health Services: [facility] Living Environment: Family / Home Support:poor Thepatient currently lives in a [facility] residence.11:57 Patient presents to Emergency Department with the following symptomswithin the past 2 vp37xslxq: anxiety, depressed mood.12:11 Patient presents to Emergency Department with the following symptomswithin the past 2 rq93sujpo: excessive guilt, feelings of helplessness/hopelessness, poor impulsecontrol,self-mutilation, sleep disturbance - insomnia, suicidal ideation with plan forpills,strangling se lf.12:12 Objective: Patient is cooperative, Speech is normal. Affect is Tearful.Mental status nx48qxmj: Patients appearance is appropriate, Patient's behavior is [...] patient's status at 13:12, ED MDnotified of tz36kwnlulru status at 13:12. Disposition: Medically cleared for disposition by Rajiv.Psychiatric Consult is performed by phone with Dr Beckham The [facility]ad[facility] but pt would prefer to be inpatient at a different facility at thistime. LegalStatus: Patient's legal status will be Director [employer] Services: .DSM-V DXAxis I diagnosis: Bipolar D/O, depressed [place] II diagnosis: Deferred [place] IIIdiagnosis: None. [place] IV diagnosis: poor impulse control. [facility] AdmissionCriteria: Thepatient has had a suicide attempt [...] Awaiting referral hospitalacceptance.The patient is not a family service center director or dependent. Mayes SuicideSeverityRating Scale: Suicidal Ideation Rating 5; Intensity [...] Temp 96.7(T); Pulse Ox 98% on R/A; Vsfqnu364.33 kg; klpHeight 5 ft. 6 in. ; Pain 0/10;18:19 BP 145 / 91; Pulse 96; Resp 17; Temp 97.3; Pulse Ox 96% ; Pain 0/10;wd110:42 Body Mass Index 37.12 (104.33 kg, 167.64 cm)klp10:42 Pain Scale: Ljjmyqnk84:19 Pain Scale: Xumznkq5YI Course:10:40 Patient arrived in ED.klp10:40 NONE, - [...] to Hospitalize by Provider.se17:13 Disposition: Admitted to Azwsdbx719:13 Condition: stable, Provider notified of abnormal vital signs.17:13 Discharge instructions given to patient, Instructed on need for admit.17:13 Discharge Assessment: Patient verbalized understanding of dispositioninstructions.Patient has no functional deficits.18:20 Patient left the ED.ro8Frhysenvfy:Елена Hugo, Kylie Sands RN, MD MD seDow, Wendy, RN RN wd1Hilborne, Erica RN Ina Farah cd37Avytdskhwmd: (The following items were deleted from the chart)11:01 10:59 Home Meds: inderal 10 mg twice a day; cjnmku84:12 11:57 Patient presents to Emergency Department with the followingsymptoms within the vj69cpud 2 weeks: anxiety, depressed mood, am11 Name Value Range Interpretation Code Description Data Stephanie rce(s) Supporting Document(s) ID Date Data Source [id number] 05/01/2021 02:32:00 AM [facility] Name Value Range Interpretation Code Description Data Stephanie rce(s) Supporting Document(s) UDS Benzodiazepines Screen Negative Normal (applies to n on-numeric results) [facility] UDS Cocaine Screen Negative Normal (applies to non-numer ic results) [facility] UDS Ampetamine Screen Negative Normal (applies to non-nu meric results) [facility] UDS Cannabinoids Screen Negative Normal (applies to non- numeric results) [facility] UDS Opiates Screen Negative Normal (applies to non-numer ic results) [facility] UDS Barbiturates Screen Negative Normal (applies to non- numeric results) [facility] Threshold Levels Benzodiazepine 200 ng/mL Cocaine 300 ng/mL Amphetamines 1000 ng/mL Cannabinoids (THC) 50 ng/mL Opiates 300 ng/mL Barbiturates 200 ng/mL All positive findings are presumptive and unconfirmed. Confirmation of positive results are performed only at request of provider. Unconfirmed results must not be used for non-medical purposes (i.e. preemployment and legal purposes) ID Date Data Source [id number] 05/01/2021 02:40:00 AM [facility] Name Value Range Interpretation Code Description Data Stephanie rce(s) Supporting Document(s) Salicylate 2.8-20.0 Below low normal [facility] ID Date Data Source [id number] 05/01/2021 02:40:00 AM [facility] Name Value Range Interpretation Code Description Data Stephanie rce(s) Supporting Document(s) Acetaminophen 10.0-30.0 Below low normal [facility] ID Date Data Source [id number] 05/01/2021 02:40:00 AM [facility] Name Value Range Interpretation Code Description Data Stephanie rce(s) Supporting Document(s) Ethanol Less than 10.0 Normal (applies to non-numeric r esults) [facility] ID Date Data Source [id number] 05/01/2021 12:44:00 AM EDT [facility] Name Value Range Interpretation Code Description Data Stephanie rce(s) Supporting Document(s) UDS Benzodiazepines Screen Negative Normal (applies to n on-numeric results) [facility] UDS Cocaine Screen Negative Normal (applies to non-numer ic results) [facility] UDS Ampetamine Screen Negative Normal (applies to non-nu meric results) [facility] UDS Cannabinoids Screen Negative Normal (applies to non- numeric results) [facility] UDS Opiates Screen Negative Normal (applies to non-numer ic results) [facility] UDS Barbiturates Screen Negative Normal (applies to non- numeric results) [facility] Threshold Levels Benzodiazepine 200 ng/mL Cocaine 300 ng/mL Amphetamines 1000 ng/mL Cannabinoids (THC) 50 ng/mL Opiates 300 ng/mL Barbiturates 200 ng/mL All positive findings are presumptive and unconfirmed. Confirmation of positive results are performed only at request of provider. Unconfirmed results must not be used for non-medical purposes (i.e. preemployment and legal purposes) ID Date Data Source [id number] 05/01/[facility]:54:[facility] Interpretation Code Description Data Stephanie rce(s) Supporting Document(s) Ethanol Less than 10.0 Normal (applies to non-numeric r esults) [facility] ID Date Data Source [id number] 05/01/2021 12:56:00 [facility] Value Range Interpretation Code Description Data Stephanie rce(s) Supporting Document(s) Salicylate 2.8-20.0 Below low normal [facility] ID Date Data Source [id number] 05/01/2021 12:56:00 AM EDT [facility] Value Range Interpretation Code Description Data Stephanie rce(s) Supporting Document(s) Acetaminophen 10.0-30.0 Below low normal [facility] ID Date Data Source [id number] 04/30/2021 09:38:00 PM EDT [facility] Name Value Range Interpretation Code Description Data Stephanie rce(s) Supporting Document(s) UDS Benzodiazepines Screen Negative Normal (applies to n on-numeric results) [facility] UDS Cocaine Screen Negative Normal (applies to non-numer ic results) [facility] UDS Ampetamine Screen Negative Normal (applies to non-nu meric results) [facility] UDS Cannabinoids Screen Negative Normal (applies to non- numeric results) [facility] UDS Opiates Screen Negative Normal (applies to non-numer ic results) [facility] UDS Barbiturates Screen Negative Normal (applies to non- numeric results) [facility] Threshold Levels Benzodiazepine 200 ng/mL Cocaine 300 ng/mL Amphetamines 1000 ng/mL Cannabinoids (THC) 50 ng/mL Opiates 300 ng/mL Barbiturates 200 ng/mL All positive findings are presumptive and unconfirmed. Confirmation of positive results are performed only at request of provider. Unconfirmed results must not be used for non-medical purposes (i.e. preemployment and legal purposes) ID Date Data Source [id number] 04/30/2021 09:22:00 PM T [facility] Collected By: Nurse Initials: JT Time Collected: 2039 Name Value Range Interpretation Code Description Data Stephanie rce(s) Supporting Document(s) Color,Urine Colorl-Dk Y Normal (applies to non-numeric res ults) [facility] Clarity,Urine Clear Normal (applies to non-numeric re sults) [facility] Specific [place],Urine 1.005-1.030 Normal (applies to non- numeric results) [facility] pH,Urine 5.0-8.0 Normal (applies to non-numeric resul ts) [facility] Protein,Urine Negative Normal (applies to non-numeric re sults) [facility] Glucose,Urine Negative Normal (applies to non-numeric re sults) [facility] Ketones,Urine Negative Normal (applies to non-numeric re sults) [facility] Blood,Urine Negative Normal (applies to non-numeric resu lts) [facility] Bilirubin,Urine Negative Normal (applies to non-numeric results) [facility] Urobilinogen,Urine 0.2-1.0 Normal (applies to non-numer ic results) [facility] Leukocyte Esterase,Urine Negative Normal (applies to non -numeric results) [facility] Nitrite,Urine Negative Normal (applies to non-numeric re sults) [facility] ID Date Data Source [id number] 04/30/2021 09:16:00 PM EDT [facility] Name Value Range Interpretation Code Description Data Stephanie rce(s) Supporting Document(s) Sodium 138 mmol/L 136-145 Normal (applies to non-numeric resul ts) [facility] Potassium 3.5-5.1 Normal (applies to non-numeric resul ts) [facility] Chloride 101 mmol/L 98-107 Normal (applies to non-numeric resul ts) [facility] Carbon Dioxide CO2 21-32 Normal (applies to non-numer ic results) [facility] Anion Gap 5.0-16.0 Normal (applies to non-numeric resul ts) [facility] BUN 18 mg/dL 7-18 Normal (applies to non-numeric results) [facility] Creatinine,Serum 0.7-1.2 Below low normal [facility] GFR >60 Normal (applies to non-numeric results) [facility] Glucose Level 93 mg/dL 60-99 Normal (applies to non-numeric re sults) [facility] Reference range is only applicable when patient is fasting Note the following drug interference: Sulfasalazine Sulfapyridine Can see falsely depressed Can see falsely elevated result with up to 17% results with up to 11% decrease in measurement increase in measurement Recommend patients be collected for this test prior to administration of either drug. Calcium 8.5-10.1 Normal (applies to non-numeric resul ts) [facility] Bilirubin,Total 0.1-1.9 Normal (applies to non-numeric results) [facility] SGOT(AST) 33 U/L 15-37 Normal (applies to non-numeric resul ts) [facility] Note the following drug interference: Sulfasalazine Sulfapyridine Can see falsely depressed Can see falsely elevated result with up to 10% results with up to 10% decrease in measurement increase in measurement Recommend patients be collected for this test prior to administration of either drug. SGPT(ALT) 61 U/L 12-78 Normal (applies to non-numeric resul ts) [facility] Note the following drug interference: Sulfasalazine Sulfapyridine Can see falsely depressed Can see falsely elevated result with up to 29% results with up to 10% decrease in measurement increase in measurement Recommend patients be collected for this test prior to administration of either drug. Alkaline Phosphatase 121 U/L 38-126 Normal (applies to non-num deena results) [facility] can increase Alkaline Phosp le vels up to 2 times the normal adult value. Normal values for children and adolescents are 2 to 3 times the normal adult value. Total Protein 6.0-8.2 Normal (applies to non-numeric re sults) [facility] Albumin Level 3.4-5.0 Normal (applies to non-numeric re sults) [facility] ID Date Data Source [id number] 04/30/2021 09:16:00 PM EDT [facility] Name Value Range Interpretation Code Description Data Stephanie rce(s) Supporting Document(s) Acetaminophen 10.0-30.0 Below low normal [facility] ID Date Data Source [id number] 04/30/2021 09:16:00 PM EDT [facility] Name Value Range Interpretation Code Description Data Stephanie rce(s) Supporting Document(s) Salicylate 2.8-20.0 Below low normal [facility] ID Date Data Source [id number] 04/30/2021 09:16:00 PM T [facility] Name Value Range Interpretation Code Description Data Stephanie rce(s) Supporting Document(s) Troponin I 0.000-0.056 Normal (applies to non-numeric resu lts) [facility] ID Date Data Source [id number] 04/30/2021 09:16:00 PM EDT [facility] Name Value Range Interpretation Code Description Data Stephanie rce(s) Supporting Document(s) Magnesium 1.8-2.4 Normal (applies to non-numeric resul ts) [facility] ID Date Data Source [id number] 04/30/2021 09:07:00 PM EDT [facility] Name Value Range Interpretation Code Description Data Stephanie rce(s) Supporting Document(s) Ethanol Less than 10.0 Normal (applies to non-numeric r esults) [facility] ID Date Data Source [id number] 04/30/2021 09:06:00 PM EDT [facility] Name Value Range Interpretation Code Description Data Stephanie rce(s) Supporting Document(s) Beta HCG,Screen Negative Normal (applies to non-numeric results) [facility] ID Date Data Source [id number] 04/30/2021 08:40:00 PM EDT [facility] Name Value Range Interpretation Code Description Data Stephanie rce(s) Supporting Document(s) White Blood Count 3.5-10.5 Normal (applies to non-numeri c results) [facility] Red Blood Count 3.90-5.00 Normal (applies to non-numeric results) [facility] Hemoglobin 12.0-15.5 Normal (applies to non-numeric resul ts) [facility] Hematocrit 34.9-44.5 Normal (applies to non-numeric resul ts) [facility] Mean Corpuscular Volume 81.2-95.1 Normal (applies to non- numeric results) [facility] Mean Corpuscular Hgb 25.6-32.2 Normal (applies to non-num deena results) [facility] Mean Corpuscular Hgb Conc 32.0-36.0 Normal (applies to no n-numeric results) [facility] Red Cell Distribution Width 11.9-15.5 Normal (appli es to non-numeric results) [facility] Platelet Count 282 x10 3/uL 150-450 Normal (applies to non-numeric results) [facility] Mean Platelet Volume 9.4-12.4 Normal (applies to non-num deena results) [facility] Neutrophils% (Auto) 31.0-71.0 Normal (applies to non-nume frank results) [facility] Lymphocytes% (Auto) 20.0-55.0 Normal (applies to non-nume frank results) [facility] Monocytes% (Auto) 4.0-12.0 Normal (applies to non-numeri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 providers due tothe sideeffects of the psychoactive medications or significant dosage adjustments.Awaitingtransfer to [facility].Psych:04/1621:08 Subjective: Patient's mood is sad, Delusions are denied, Having thoughtsof suicide. xv9Lgfw for suicide is strangle self or jump in front of car. Objective: Patientiscooperative, Speech is normal, Affect is appropriate. Interventions: Removedpersonalitems and placed in bag. Patient placed in hospital gown. Searched person fordangerousitems. Urine collected and sent for urine drug test. Observation Level Level 3Sitterneeded. Provider notified. Ramón Levy MD Charge nurse notified. Lennox AMAYALevel 3 order placed. Consultation: Psych inspector aide notified of patientsarrival.Vital Signs:21:06 BP 105 / [...] No Physician assisted procedures completed.jw505:00 Sitter at bedside.ya9Dnpacdvgggrh Medications:No medications were administeredOutcome:04:52 Decision to Hospitalize by Provider.na106:09 Disposition: Admitted to Psych with chart.jw506:09 Condition: :09 Instructed on need for admit.06:09 Discharge Assessment: Patient verbalized understanding of dispositioninstructions.Patient has no functional deficits.06:10 Patient left the ED.eg5Hddkmjyrhk:Ramón Levy MD MD na1Johnson, Christopher, PSA PSA cj1White, Jason, RN RN jw5 Name Value Range Interpretation Code Description Data Stephanie rce(s) Supporting Document(s) ID Date Data Source [id number] 04/26/2021 03:05:00 PM EDT [address] [id number] DISCHARGE SUMMARYPATIENT NAME: YARELI HATCH MR#: [id number] PHYSICIAN: BROOKLYN ONEILL MDAUTHOR: Surendra SMITHPRoge DATE: 04/26/21 #: 3RDDISCHARGE DATE:YwxosroGafkgriwwwrree40-miyi-snz morbidly obese femaleChief Complaint"I was suicidal"Reason for [...] for safety. [facility] PoliceDepartment bringing her to the [facility] due [...] to not being at her [facility] much and admits is due tohaving lack of relationships with her peers there and states that staff do nothelp or interact with her. Patient does admit to not following up with [facility] appointment stating it was reasons related to [...] her GED. Patient has never worked in the[employer]. Patient currently lives at [facility] living facility and is on an [...] sure about how she will get to [place] as well as the staff at [facility] her there. During my evaluation today [...] InstructionsPrescriptionsContinue taking these medications:IBUPROFEN (IBUPROFEN) 400 MG BXTUMB825 MILLIGRAM Orally EVERY 6 HOURS NEEDED as needed for HeadacheQty = 21Loratadine* (Claritin*) 10 MG YZBEVY65 MILLIGRAM Orally DAILYDays = 30 Qty = 30PROPRANOLOL HCL (Inderal*) 10 MG RQVWRW26 MILLIGRAM Orally TWICE DAILYDays = 30 Qty = 60TOPIRAMATE (TOPAMAX) 25 MG TCTRQB73 MILLIGRAM Orally DAILYDays = 60 Qty = 30SERTRALINE (Zoloft*) 50 MG LETEUW369 MILLIGRAM Orally DAILYDays = 30 Qty = 30MONTELUKAST SODIUM (MONTELUKAST) 10 MG YJNFKX44 MILLIGRAM Orally DAILYDays = 30 Qty = 30Aripiprazole* (Abilify*) 10 MG DMYSFZ92 MILLIGRAM Orally DAILYPRAZOSIN HCL (PRAZOSIN HCL) 2 MG CAPSULE2 MILLIGRAM Orally AT BEDTIMEAripiprazole (Abilify Maintena) 400 MG SUSER.YRH549 MILLIGRAM Intramuscularly R78TEqc = 1Instructions:last im inj received 04/03/21Olanzapine* (Zyprexa*) [...] rce(s) Supporting Document(s) ID Date Data Source [id number] 04/26/2021 02:33:00 PM EDT [facility] [id number] NAME: YARELI HATCH#: [id number] PHYSICIAN: BROOKLYN ONEILL MDACHICO #: [id number] ADM. DATE: 04/26/21PATIENT : 00 DISCH. DATE: [50}DISCHARGE SUMMARYMHU discharge planNicotine Replacement TherapySmoking Status Former smokerPrescribed at discharge Rx not offered at DCReason not offered not a smokerAlcohol/Drug DisorderAlcohol or Drug Disorder neither disorderPersonal Care InstructionsDischarge Activity: Resume normal activityD ischarge diet: RegulariStopEND ENDDICT: 04/26/213 Electronically SignedTRANS:04/26/211432 BROOKLYN ONEILL MDTRANS BY:DATE SIGNED:04/26/21TIME SIGNED: 143EPORT COPY TO: Name Value Range Interpretation Code Description Data Stephanie rce(s) Supporting Document(s) ID Date Data Source [id number] 04/26/2021 11:55:00 AM EDT [address] PSYCHIATRIC ASSESSMENTPATIENT NAME: YARELI HATCH MR#: [id number] PHYSICIAN: BROOKLYN ONEILL MDAUTHOR: Dylan Aquino DATE: 04/26/21 RM#: [id number] morbidly obese femaleChief Complaint"I was suicidal"Reason for [...] to not being at her [facility] much and admits is due tohaving lack of relationships with her peers there and states that staff do nothelp or interact with her. Patient does admit to not following up with [facility] mental health appointment stating it was reasons [...] her GED. Patient has never worked in [employer]. Patient currently lives at [facility] living facility and is on an [...] Date TimeChemistrySodium (136 - 147 mmol/L) 138 10/15 2345Potassium (3.5 - 5.1 mmol/L) 4.0 10 2345Chloride (99 - 110 mmol/L) 107 04/25 2345Serum Bicarbonate (20 - 33 mmol/L) 25 10 2345Anion Gap (10.0 - 20.0) 10.0 04/25 2345BUN (7 - 23 mg/dL) 16 04/25 2345Creatinine (0.500 - 1.300 mg/dL) 0.660 04/25 2345Estimated GFR/1.73 m2 (mL/min) > 60 10 2345Glucose (70 - 110 mg/dL) 89 04/25 [...] 2345RBC (4.20 - 5.40 x10E6/uL) 4.48 04/25 2345Hgb (12.0 - 16.0 g/dL) 13.0 04/25 2345Hct (37.0 - 47.0 %) 40.4 04/25 2345MCV (81.0 - 99.0 fL) 90.2 04/25 2345MCH (27.0 - 31.0 pg) 29.0 04/25 2345MCHC (32.7 - 35.6 g/dL) 32.2 L 04/25 2345RDW (11.5 - 14.0 %) 12.3 04/25 2345Plt Count (150 - 450 x10E3/uL) 291 04/25 2345MPV (6.9 - 9.5 fl) 10.1 H 04/25 2345Immature Gran % (Auto) (0.1 - 2.0 %) 0.4 04/25 2345Neut % (Auto) (34 - 64 %) 59.9 04/25 2345Lymph % (Auto) (25 - 45 %) 31.9 04/25 2345Mono % (Auto) (1.7 - 10.6 %) 6.6 04/25 2345Eos % (Auto) (0.4 - 7.0 %) 1.0 04/25 234aso % (Auto) (0.1 - 2.0 %) 0.2 04/25bs Immat Gran (auto) (0.0 - 0.1 x10E3/uL) 0.04 04/25 234bsolute Neuts (auto) (1.2 - 7.6 x10E3/uL) 5.89 04/25 234bsolute Lymphs (auto) (1.0 - 3.5 x10E3/uL) 3.14 04/25 2345Absolute Monos (auto) (0.1 - 1.0 x10E3/uL) 0.65 04/25bsolute Eos (auto) (0.1 - 0.7 x10E3/uL) 0.10 [...] 2345UrinesUrine Color Yellow 04/26 0000Urine Appearance Cloudy / 0000Urine pH (5.0 - 8.0) 6.0 / 0000Ur Specific [place] (1.010 - 1.025) 1.027 H 10/ 0000Urine Protein (Negative) Trace 04/26 0000Urine Ketones (NEGATIVE) Negative /16 0000Urine Blood (NEGATIVE) 2+ 04/26 0000Urine Nitrite (Negative) Negative 04/26 0000Ur Bilirubin Confirm (NEGATIVE) Negative 04/26 0000Urine Urobilinogen (0.2 - 1.0 mg/dL) 1.0 / 0000Urine Leukocytes (Negative) Trace /16 0000Urine RBC (NONE SEEN) 3-5 RBCs/HPF / 0000Urine WBC (NONE SEEN) 3-5 WBCs/HPF /16 0000Urine Crystals (NONE SEEN) FEW AMORPHOUS / 0000Urine Bacteria (NONE SEEN) Few /16 0000Urine Mucus (NONE SEEN) Few / 0000Urine Glucose (NEGATIVE) Negative 04/26 0000Urine HCG, Qual (Negative) Negative 04/26 0000Additional NotesPlan:Patient will be evaluated by Dr. Oneill. If patient is able to maintainsafety and exhibit safe and appropriate behavior she can be discharged back [facility]. If it is determined that she is [...] SIGNED: 04/26/21 Electronically SignedTIME SIGNED: 1221 DYLAN - MAXIMILIAN-Janette RIBEIRO Name Value Range Interpretation Code Description Data Stephanie rce(s) Supporting Document(s) ID Date Data Source [id number] 04/26/2021 01:09:00 AM EDT [facility] Name Value Range Interpretation Code Description Data Stephanie rce(s) Supporting Document(s) PCP VISTA NEG NEGATIVE [facility] MINIMUM LEVEL OF DETECTION IS 25 ng/ml BENZODIAZEPINES NEG NEGATIVE [facility] al MINIMUM LEVEL OF DETECTION IS 200 ng/ml COCAINE VISTA NEG NEGATIVE [facility] MINIMUM LEVEL OF DETECTION IS 300 ng/ml AMPHETAMINES [facility]G [facility]GAT[facility] MINIMUM LEVEL OF DETECTION IS 1000 ng/ml BARBITURATES NEG NEGATIVE [facility] CUTOFF CONCENTRATION IS 200 ng/ml CANNABINOIDS NEG NEGATIVE [facility] CUTOFF CONCENTRATION IS 50 ng/ml METHADONE VISTA NEG NEGATIVE [facility] al MINIMUM LEVEL OF DETECTION IS 300 ng/ml OPIATE VISTA NEG NEGATIVE [facility] MINIMUM DETECTION LEVEL IS 300 ng/ml ID Date Data Source [id number] 04/26/2021 12:51:00 AM EDT [facility] Name Value Range Interpretation Code Description Data Stephanie rce(s) Supporting Document(s) HCG QUAL URINE Negative Negative N [facility] ID Date Data Source [id number] 04/26/2021 12:51:00 AM EDT [facility] Name Value Range Interpretation Code Description Data Stephanie rce(s) Supporting Document(s) URINE COLOR Yellow [facility] UAPR Cloudy [facility] UGLU Negative NEGATIVE [facility] URINE BILIRUBIN Negative NEGATIVE N [facility] UKET Negative NEGATIVE [facility] USG 1.027 1.010-1.025 [facility] UBLO 2+ NEGATIVE [facility] UpH 6.0 5.0-8.0 [facility] UPRO Trace Negative [facility] UUB 1.0 mg/dL 0.2-1.0 [facility] UNIT Negative Negative [facility] ULEU Trace Negative [facility] ID Date Data Source [id number] 04/26/2021 12:51:00 AM EDT [facility] Name Value Range Interpretation Code Description Data Stephanie rce(s) Supporting Document(s) URINE RBC 3-5 RBCs/HPF NONE SEEN [facility] URINE WBC 3-5 WBCs/HPF NONE SEEN [facility] URINE BACTERIA Few NONE SEEN [facility] l URINE EPI. Moderate NONE SEEN [facility] UMUCUS Few NONE SEEN [facility] URINE CRYSTAL FEW AMORPHOUS NONE SEEN [facility] ital ID Date Data Source [id number] 04/26/2021 12:22:00 AM EDT [facility] Name Value Range Interpretation Code Description Data Stephanie rce(s) Supporting Document(s) SALICYLATE < 1.7 mg/dL 0.0-20.0 [facility] ID Date Data Source [id number] 04/26/2021 12:22:00 AM EDT [facility] Name Value Range Interpretation Code Description Data Stephanie rce(s) Supporting Document(s) ACETAMINOPHEN < 2.0 ug/mL 0-30 [facility] Date Data Source [id number] 04/26/2021 12:22:00 AM EDT [facility] Name Value Range Interpretation Code Description Data Stephanie rce(s) Supporting Document(s) ETOH NONE DETECTED [facility] NONE DETECTED ID Date Data Source [id number] 04/26/2021 12:22:00 AM EDT [facility] Name Value Range Interpretation Code Description Data Stephanie rce(s) Supporting Document(s) GLU 89 mg/dL 70-110 [facility] Patients taking Sulfasalazine may have f alsely depressedGlucose levels. Patients taking Sulfapyridine may havefalsely elevated Glucose levels. Patients should be drawnfor Glucose before the initial administration of eitherdrug. BUN 16 mg/dL 7-23 [facility] CRE 0.660 mg/dL 0.500-1.300 [facility] GFR > 60 mL/min [facility] CHLORIDE 107 mmol/L 99-110 [facility] NA 138 mmol/L 136-147 [facility] POTASSIUM 4.0 mmol/L 3.5-5.1 [facility] TCO2 25 mmol/L 20-33 [facility] ANION GAP 10.0 10.0-20.0 [facility] CA 9.5 mg/dL 8.3-10.7 [facility] ALKALINE PHOS 118 U/L 45-117 [facility] TP 8.7 g/dL 6.0-7.8 H [facility] ALB 4.0 g/dL 3.5-5.0 [facility] ESRD Dialysis patient Albumin reference range: 2.9-4.4 g/dL GL 4.7 g/dL 2.3-3.5 [facility] A/G 0.9 1.0-2.5 L [facility] T. BILIRUBIN 0.3 mg/dL 0.1-1.1 [facility] The Dimension [place] Total Bilirubin is n ot recommended forpatients undergoing treatment with eltrombopag (Promacta)due to the potential for falsely elevated results. ALTI 64 U/L 6-54 [facility] Patients taking Sulfasalazine and/or Sul fapyridine may havefalsely depressed ALT levels. Patients should be drawn forALT before the initial administration of either drug. AST 38 U/L 6-38 [facility] Patients taking Sulfasalazine and/or Sul fapyridine may havefalsely depressed AST levels. Patients should be drawn forAST before the initial administration of either drug. ID Date Data Source [id number] 04/26/2021 12:07:00 AM EDT [facility] Name Value Range Interpretation Code Description Data Stephanie rce(s) Supporting Document(s) WBC 9.84 x10E3/uL 4.0-10.5 [facility] RBC 4.48 x10E6/uL 4.20-5.40 [facility] Hemoglobin 13.0 g/dL 12.0-16.0 [facility] Hematocrit 40.4 % 37.0-47.0 [facility] MCV 90.2 fL 81.0-99.0 [facility] MCH 29.0 pg 27.0-31.0 N [facility] MCHC 32.2 g/dL 32.7-35.6 L [facility] RDW 12.3 % 11.5-14.0 [facility] Platelet count 291 x10E3/uL 150-450 N [facility] ital MPV 10.1 fl 6.9-9.5 H [facility] Neutrophils 59.9 % 34-64 [facility] Lymphocytes 31.9 % 25-45 [facility] Monocytes 6.6 % 1.7-10.6 [facility] Eosinophils 1.0 % 0.4-7.0 [facility] Basophils 0.2 % 0.1-2.0 [facility] Imm. Gran. 0.4 % 0.1-2.0 [facility] Abs. Neutro. 5.89 x10E3/uL 1.2-7.6 [facility] Abs. Lymph. 3.14 x10E3/uL 1.0-3.5 [facility] Abs. Kerr. 0.65 x10E3/uL 0.1-1.0 [facility] Abs. Eosin. 0.10 x10E3/uL 0.1-0.7 [facility] Abs. Baso. 0.02 x10E3/uL 0.0-0.1 [facility] Abs. Imm. Gran. 0.04 x10E3/uL 0.0-0.1 N [facility] spital ANRBC% 0 % 0 [facility] ID Date Data Source [id number] 04/26/2021 05:06:00 AM EDT [facility] Physician DocumentationClaxton-Naveen Hinkle edical CenterName: Yareli DuvallAge: 20 yrsSex: FemaleDOB: 2000MRN: [id number] Date: 04/25/2021Time: 23:15Account#: [id number] B1Htohxcb MD: NONE, - Per PatientED Physician Catalino Piresposition Summary:04/26/21 03:21Hospitalization OrderedHospitalization Status: Inpatient Qqbztrdbpyo9Mihaeapm: Wisam Oneilla1Location: Mental Health Edcczh1Mdgugydta: Cdduzxvq6Bbmeozy: an ongoing evjgtxghc3Fxnrznkq: are xkhyfigggsp8Gggv Assignment:yt1Dhxjxrdci- Schizoaffective disorder, tpdqqaffnocdc3Kklxulmolg Information- Admission Type: Inpatient Status.ji5Sgitw:- Medication Reconciliationna1- SBARna1- Medication Reconciliation Form - 2nd Copyna1- Psych. KURCrv9XIN:04/1603:21 This 20 yrs old White Female presents [...] for drug dependence, alcohol de pendence, auditoryhallucinations, ur4mpfgno hallucinations, homicidal ideation. All other systems are negative.Exam:03:22 Head/Face: Normocephalic, atraumatic. Eyes: Pupils equal round andreactive to light, jq8oyiyp-wukivh motions intact. Lids and lashes normal. Conjunctiva [...] Resp 18; Temp 97.1; Pulse Ox 97% ;3:21 Body Mass Index 37.12 (104.33 kg, 167.64 cm)jw5MDM:01:09 Patient medically screened.na101:11 Data reviewed: vital signs, nurses notes, lab test result(s).na103:25 ED course: IMPRESSION: COPD EXCEREBR ATION & CHF, RESP. FAILURE WITHHYPOXEMIA & ji7WBOIZLGLJRO. PT. HAD 500 ML. 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 IN ED, SOLUMDEROL 80 MG IV, HE IS FEELING BETTER, IN MILD RESP.DISTRESS.PLAN TO ADMIT TO HOSPITALIST SERVICE--DR. SERRANO. PT. AGREABLE WITHADMISSION..04/1523:33 Order name: Acetaminophen Level; Complete Time: 01::33 Order name: C BC with diff; Complete Time: :: Order name: CMP; Complete Time: 01:: Order name: COVID-19 PROFILE+LAB; Complete Time: 01::33 Order name: ETOH; Complete Time: :: Order name: Igypchtxb939/1523: Order name: Salicylate Level; Complete Time: 01::33 Order name: Triage - Drug Screen; Complete Time: :: Order name: UA; Complete Time: 01:: Order name: Urine HCG Qualitative; Complete Time: 01:: Order name: Diet - Mental Health Tray (call dietary); Complete Time:02:: Order name: Belongings Wujscz365: Order name: Document Weight and Height for BMI; Complete Time: 02::33 Order name: Mental Health Evaluation; Complete Time: 02:: Order name: Mental Health Level 3; Complete Time: 02:38mq925/1523:33 Order name: VS q shift; Complete Time: 02:1601:12 Order name: Medically Cleared for Eval by-Psychosocial, Cd Mixer Helper (YE);Complete Time: na102:42Dispensed Medications:No medications were administeredSignatures:Dispatcher [employer] Ramón Beverly MD MD my3HrirkFortunato humphrey RN RN jw5 Name Value Range Interpretation Code Description Data Stephanie rce(s) Supporting Document(s) ID Date Data Source [id number] 04/26/2021 05:06:00 AM EDT [facility]Cl[facility] terName: Yareli DuvallAge: 20 yrsSex: FemaleDOB: 2000MRN: [id number] Date: 04/25/2021Time: 23:15Account#: [id number] B1Rhovtpv MD: NONE, - Per PatientDiagnosis: Schizoaffective disorder, unspecifiedPresentation:04/1523:17 Presenting complaint: Patient brought by [employer] officer [facility] sm1dlkthnnpbv due to suicidal threats brought on by [...] a large of amount ofpeoplelive, such as intermediate, family care, nursing home, etc? no. Have you traveled to [facility] widespread or ongoing COVID-19 community spread or outside of [facility]? noHaveyjacoby traveled internationally or had contact with someone that has traveled andhas beenill in the past 3 weeks? no Have you received the COVID vaccine? Yes.CommunicableDisease Screen: Negative for fever>/= 100 degrees Fahrenheit. Communicablediseasescreen is negative. (-) rash or unusual skin lesion (-) travel/contact withtraveler(-) respiratory symptoms. Communication Speaks Wallisian? Yes, is preferredlanguage.23:17 Acuity: Triage 8in312:17 Method Of Arrival: Zunovpum706:19 Acuity Assignment: Triage 7ez8Kvuges Assessment:23:21 General: Appears in no apparent distress, Behavior is anxious,cooperative. Sepsis oh6Gyrkfvrvg: (1)Signs/symptoms infection No. Pain: Denies pain. PSS-3 [...] 400 mg intramuscular suspension,extended release syringe 400 yhugvai17 days3. ibuprofen 400 mg Oral tablet 1 [...] threats or abuse. Denies injuries from another.Nutritional zh7hvyesgnpd: No deficits noted. Offer of HIV testing: patient was previouslyofferedscreening. Fall Risk None identified.Assessment:00:59 Reassessment: see triage.jw501:05 Reassessment: Patient went to bathroom then walked out the ER doors andonto the ER no9nuyr refused to come inside, [employer] called and patient walked back in with patientplacedin restraints as per MD order without incident Patient remained in site at alltimes..02:00 Reassessment: Patient appears in no apparent distress at this time.Patient calm and sw7fsfcvfmiudg at this time.02:15 Reassessment: Patient removed from restraints without incident.jw504:32 Reassessment: Patient appears in no apparent distress at this time.zf5Ezdaamulaspc:00:54 SAFE Act Report Not Completed. Intervention: Observation [...] on ramp. [employer] was called to helptalk tothe pt. Pt did agree to come back inside. Pt took her sheet and wrapped itaround herneck. Sheet was removed. Pt reports that her aunt in [place] just .Shestarted crying saying that she is suicidal and wants help but feels no one willhelpher. Pt reports that she has the plans to either overdose or hang herself. Ptreportsthat she feels that she needs terminal 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 treatment because she feels nothingelse isworking. Pt has a long history of being inpatient for mental health at multipledifferent facilities. Pt was last inpatient at [facility] was April 09, 2021. Pthas adiagnosis of Anxiety, Depression, Borderline Personality Disorder. Pt denies HIandhallucinations. Delusions are denied, Hallucinations are denied. Patient's moodisdepressed, Having thoughts of suicide. Plan for suicide is overdose or hangself.01:05 Narrative PSA spoke to Zohra at [facility] [phone] who states that the pttells them lf2aeij she is suicidal every day and she does not understand what is going on.She statesthat this is an every day thing with going to a hospital and gets gettingdischarged.She states that they are lost of what to do at this point and feel that [facility] a longtreatment center.01:13 Patient reports history of anxiety, Bipolar Disorder, Depression, self-mutilation, dc8Xmiki: BPD. Mental Health Admissions: multiple at multiple facilities last [facility] was04[facility]09[facility]21 Current Outpatient Mental Health Ser vices: Therapist / Agency:Grayson/Zev at [facility]. Living Environment: Family / Home Support: fair Thepatientcurrently lives in a [facility] apartment. The patient is single. Detox [...] took it from pt. Shewent to the [address] then left the ED on the ramp, refusing to come inside. [employer] was called.Pt wasput in 4 point restraints.02:40 Transfer plan is communicated to Zohra at [facility]. Consultation: Psych MDinformed of do8stesiwq's status at 02:00, ED MD notified of patients status at 02:40, MentalHealth ERRN made aware of pt status at 02:15. Disposition: Medically cleared fordisposition byDr Levy. Psychiatric Consult is performed by phone with Dr Dylan Clark NPThepatient is admitted to [facility] MHU Patient report is given to [place] AMAYA. LegalStatus:Patient's legal status will be Emergency: 9.39. Commitment papers arecompleted. pt hasbeen provided with the copy of her legal status and rights. DSM-V DX [place] Idiagnosis:Schizoaffective D/O. Insurance Pre-Certification: Not Required. [facility] AdmissionCriteria: The patient is experiencing suicidal ideation. The patient requirescontinuous observation and/or control to protect self, others or property. Thepatient's care requires a multi-modal treatment plan under close supervisionandcoordination due to the complexity and severity of the patient's symptoms. Thepatientrequires administration and monitoring of psychoactive medications by skilledmedicalproviders due to the side effects of the psychoactive medications orsignificant dosageadjustments. Awaiting transfer to [facility]. Transition of care to pt will beescorted byPSA and security. The patient is not a family service center director or dependent.ColumbiaSuicide Severity Rating Scale: Suicidal Ideation Rating 5; Intensity ofIdeationsRating 25; Suicidal Behavior Rating 0.Psych:04/1523:32 Subjective: Patient's mood is sad, Delusions are denied, Hallucinationsare denied jx3Wvxzqq thoughts of suicide. Plan for suicide is hang self or OD. Objective:Patient iscooperative, Speech is normal, Affect is appropriate. Interventions: Removedpersonalitems and placed in bag. Patient placed in hospital gown. Searched person fordangerousitems. Observation Level Level 3 Sitter needed. Provider notified. [facility]. Fortunato Mark RN Level 3 [...] for positive identification. Placed ingown. Sitter at yb7qlmaioe.01:00 No Physician assisted procedures completed.jw501:09 Ramón Levy MD is Attending Physician.na102:00 Sitter at bedside.jw503:20 Brooklyn Oneill MD is Hospitalizing Provider.na104:33 Sitter at bedside.vd3Bgcqqxesihrl Medications:No medications were administeredOutcome:03:21 Decision to Hospitalize by Provider.na105:05 Disposition: Admitted to Psych with chart.jw505:05 Condition: vrehmifan62:05 Instructed on need for admit.05:05 Discharge Assessment: Patient verbalized understanding of dispositioninstructions.Patient has no functional deficits.05:06 Patient left the ED.nq9Pqmgdhfvql:Ramón Levy MD MD om3XxsepFortunato humphrey, RN RN my3JybjvdmbUsha Adams as1Uihwebuvvlq: (The following items were deleted from the chart)01:01 00:54 Subjective: The patients chief complaint is Pt presents to the EDas a walk in fy5scec [employer] for suicidal ideations. Pt had left [...] that she feels that she needs terminal 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 treatment because she feelsnothingelse is wo rking. [facility] [place] [facility] Pt was last inpatient at [facility] . sm802:44 01:15 Narrative Pt walked to bathroom then left ED on ramp. Pt came backin. sm8 sm8 Name Value Range Interpretation Code Description Data Stephanie rce(s) Supporting Document(s) ID Date Data Source [id number] 04/25/2021 11:05:00 PM EDT [facility] Name Value Range Interpretation Code Description Data Stephanie rce(s) Supporting Document(s) LCOVID-19, CORDELL NEGATIVE [facility] This lab was ordered by [facility] and reported by [facility]. ID Date Data Source [id number] 04/26/2021 12:17:00 AM EDT [facility] Name Value Range Interpretation Code Description Data Stephanie rce(s) Supporting Document(s) COVID-19, CORDELL NEGATIVE NEGATIVE [facility] Methodology: Isothermal Nucleic Acid Amp lification [...] Emergency Use Authorization. ID Date Data Source [id number] 04/24/2021 03:18:28 PM [facility]T [facility] INFORMATIONPatient MRN Name Date of Age Gend*PT [id number] Yareli Hatch 00 20 years M CPEPPT Location Admission Date/Time Visit ID Attending ProviderNONE 04/24/21 1315 --- Laureen Luis MD([id number]) EPI ID CSN Admitting Provider [id number] Attestation signed by Laureen Luis MD at 04/24/2021 3:18 PMInitial time of commencing Psychiatrist gfvj-ua-uiip encounter with patient:04/24/21 1440 : Laureen Luis MDI have examined the patient, sbqc-tb-dkzo, and have personally participated inperforming a psychiatric [...] treatment plan with the patient and team CPEP PSYCHIATRIC ASSESSMENTPatient Name: Yareli Galindo at CPEP: 04/24/21 1305Psych FRENCH FOLDER First Contact: Yes (04/24/21 1331 : Aysha Valles NP)Chief ComplaintChief ComplaintPatient presents with Psychiatric Evaluation Pt's name is Daisy, he/him pronouns. [place]. Lives in transitional living. [facility]. Presents often to [place] for SI per ED staff.Current StressorsCurrent Stressors: Pyschiatric SymptomsHistory of Present IllnessThe patient is a 20-year-old transgender individual (biological female,identifies as male gender, prefers he/him pronouns, preferred name "Daisy"). Thepatient was transferred to [facility] from [facility] ED in [facility] to reports of vague suicidal ideation/passive wish [...] [facility]". Thus, these "suicidal statements" appear to be made huyen conditional basis if new housing is secured. Patient is fully connected withoutpatient mental health treatment providers, and an AOT order in [facility] (AOT coordinator is Laureen Alarcon ([phone]) and manager case Taye ([phone]). Patient also has been [facility], Mr. Grayson Farley. Has a psychiatricprescriber but patient cannot recall the prescribers name, reports compliancewith medication. Patient resides in a supervised housing program, staffadministers medications at scheduled intervals. Patient denies use of illicitdrugs and does not drink alcohol ([facility]DS [facility] ED[facility] egative). Patient does add that there is another stressor of pending legalcharges from reportedly assaulting a nurse, resulting in harassment charge, [facility]occurred at [facility]. Patient has been calm and cooperative at [facility],exhibits strong features of personality disorder with [...] today, [facility] as he does not currently meet criteria forinpatient psychiatric hospitalization. Patient expressed understanding of thisthough tells me that he will likely represent to another ED (not for any acuteproblem, cites housing as primary stressor). Social work consult has beenordered, case discussed with CPEP team including RN, social science analyst and .Treatment plan goals to be addressed and resolved with social science analyst, see notes.Addendum: I spoke with patient's AOT coordinator Ms. Lorraine Alarcon. Susanxplains that patient is a former [facility] resident, now she is a [facility] resident as she lives in this transitional living facilitywith 24/7 staff in [facility]. Laureen gives approval for patient to go torespite. Patient specifically requesting [facility] ([place], [place]) [facility] ([place], [place]). Laureen is aware that [facility] is [facility], Lorraine states that this is fine if the respite facility is [facility], Medicaid transportation will bring her back to her communityresidence in [facility] when needed. Ms. Alarcon would like to beupdated when a final disposition is made, she can be reached at [phone].Patient InfoHistory provided by: patient, medical recordsLanguage flux mixer used?: NoHPI: Mental Health ProblemPresenting Symptoms: anxiety (Made vague suicidal statements conditional on ifshe is discharged back to her community residence or not, states she would notbe suicidal if she stays in the hospital or goes to a respite facility, no planor intent to harm self or others, no psychosis)Patient accompanied by: (Sent from [facility] ED)Degree of incapacity (severity) : mildTiming: rareProgression: improvingChronicity: chronicContext : Current interpersonal stressorTreatment compliance: all of the timeRelieved by: antipsychotics, mood stabilizersIneffective Treatments: none triedAssociated symptoms: irritabilityRisk factors: (borderline personality disorder)Care Coordination/CollateralObtained, see above.HistoryPast Psychiatric HistoryOutside Treatment HistoryTreatment History Location Date of Last Tx Type of Tx Tx Reason/Dx Tx Length of Stay Tx helpful?Drug/Alcohol Rehab? Records Requested? Comments [facility] March 2019 Inpatient Suicidal thoughts 24 hours No [facility] 2017 Inpatient Suicidal thoughts 1 year [facility] 2007 Inpatient SI a few months [facility] [...] 6" | Wt (!) 104.3 kg | LMP1 | SpO2 98% | BMI 37.12 kg/m [...] Memory: IntactInsight: GoodJudgment: Good (Adequate)Orientation: Appropriately Oriented o5Khvinqqd Toward Examiner: CooperativeAssociations: No loosening evidentFund of [...] end yourlife)? 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 reported to materials engineering technician that she "drank some mouthwash" 3weeks ago [...] to the hospital because he dislikes his residential, wants usto get a new residential for him, future and goal oriented, no [...] goals to beaddressed and resolved with social science analyst, see notesPlan/Assessment #2: No medication changes, c ontinue home medication regimen asprescribedPlan/Assessment #3: Chart reviewed, [facility] (social work consult ordered)General Treatment Plan - GOAL: The patient will have stabilization of presentingsymptoms in order to progress towards discharge from [facility] and have identifiedthe resources available until outpatient follow up.OBJECTIVE: The patient will be assisted with support resources post discharge:While at [facility], the RN or janitorial maintenance worker will have a one on one conversation withthe patient to verbally identify their individual supports post discharge.,While at [facility], the RN or An/Sqq 89(V)15 Sonar System Journeyman will have a one on one conversation withthe patient to verbally identify whom to contact for collateral information andobtain patient consent in writing., While at [facility], the RN or An/Sqq 89(V)15 Sonar System Journeyman willhave a one on one conversation with the patient to verbally identify what followup resources will be most beneficial to the patient., While at [facility], the RN orSocial Worker will have a one on one conversation with the patient to verballyidentify any of their perceived and/or actual barriers to post discharge care.,While at [facility], the RN or An/Sqq 89(V)15 Sonar System Journeyman will have a one on one conversation withthe patient to verbally explain the Mobile Crisis Outreach Team and encouragepatient to follow up with an appointment.Anxiety Treatment Plan - GOAL: The patient will have stabilization ofpresenting symptoms in order to progress towards discharge from [facility] and haveidentified the resources available until outpatient follow up.OBJECTIVE: The patient will have reduced overall frequency, intensity, andduration of anxiety so that activities of daily living are not impaired while atCAUSTIN.: While at [facility], the RN or janitorial maintenance worker will have a one on oneconversation with the patient to verbally identify their triggers for anxiety.,[facility], the RN or An/Sqq 89(V)15 Sonar System Journeyman will have a one on one conversation [...] No changes [] No side effectsBilling Code: [id number] signed byLonnie Villegas Spswserhksvq60/14/21 1459Lonnie Villegas Rrowillncbgq55/14/21 1500 Name Value Range Interpretation Code Description Data Stephanie rce(s) Supporting Document(s) ID Date Data Source [id number] 04/23/2021 10:55:00 PM EDT [facility] Name Value Range Interpretation Code Description Data Stephanie rce(s) Supporting Document(s) Respiratory specimen severe acute respir atory syndrome coronavirus 2 (SARS-CoV-2) RNA Negative (qualifier value) [facility] This lab was ordered by [facility] and reported by . ID Date Data Source [id number] 04/23/2021 11:18:00 PM EDT [facility] Name Value Range Interpretation Code Description Data Stephanie rce(s) Supporting Document(s) SARS-CoV-2 RNA Negative Normal (applies to non-numeric r esults) [facility] Negative results should be treated as pr [...] Certificate of Accreditation. Factsheets for healthcare providers: https://www.fda.gov/media/715253/download Factsheets for patients: https://www.fda.gov/media/856843/download The ID NOW Instrument is a rapid molecular in vitro diagnostic test utilizing an isothermal nucleic acid amplification technology intended for the qualitative detection of nucleic acid from the SARS-CoV-2 viral RNA. THIS IS A STATE REPORTABLE COMMUNICABLE DISEASE. Manual entry verified by Megan Murphy 04/23/21 2317 ID Date Data Source [id number] 04/23/2021 10:16:00 PM EDT [facility] Name Value Range Interpretation Code Description Data Stephanie rce(s) Supporting Document(s) Troponin I 0.000-0.056 Normal (applies to non-numeric resu lts) [facility] ID Date Data Source [id number] 04/23/2021 10:16:00 PM T [facility] Name Value Range Interpretation Code Description Data Stephanie rce(s) Supporting Document(s) Sodium 141 mmol/L 136-145 Normal (applies to non-numeric resul ts) [facility] Potassium 3.5-5.1 Normal (applies to non-numeric resul ts) [facility] Chloride 106 mmol/L 98-107 Normal (applies to non-numeric resul ts) [facility] Carbon Dioxide CO2 21-32 Normal (applies to non-numer ic results) [facility] Anion Gap 5.0-16.0 Normal (applies to non-numeric resul ts) [facility] BUN 18 mg/dL 7-18 Normal (applies to non-numeric results) [facility] Creatinine,Serum 0.7-1.2 Normal (applies to non-numeric results) [facility] GFR >60 Normal (applies to non-numeric results) [facility] Glucose Level 108 mg/dL 60-99 Above high normal [facility] Reference range is only applicable when patient is fasting Note the following drug interference: Sulfasalazine Sulfapyridine Can see falsely depressed Can see falsely elevated result with up to 17% results with up to 11% decrease in measurement increase in measurement Recommend patients be collected for this test prior to administration of either drug. Calcium 8.5-10.1 Normal (applies to non-numeric resul ts) [facility] Bilirubin,Total 0.1-1.9 Normal (applies to non-numeric results) [facility] SGOT(AST) 34 U/L 15-37 Normal (applies to non-numeric resul ts) [facility] Note the following drug interference: Sulfasalazine Sulfapyridine Can see falsely depressed Can see falsely elevated result with up to 10% results with up to 10% decrease in measurement increase in measurement Recommend patients be collected for this test prior to administration of either drug. SGPT(ALT) 57 U/L 12-78 Normal (applies to non-numeric resul ts) [facility] Note the following drug interference: Sulfasalazine Sulfapyridine Can see falsely depressed Can see falsely elevated result with up to 29% results with up to 10% decrease in measurement increase in measurement Recommend patients be collected for this test prior to administration of either drug. Alkaline Phosphatase 125 U/L 38-126 Normal (applies to non-num deena results) [facility] can increase Alkaline Phosp le vels up to 2 times the normal adult value. Normal values for children and adolescents are 2 to 3 times the normal adult value. Total Protein 6.0-8.2 Normal (applies to non-numeric re sults) [facility] Albumin Level 3.4-5.0 Normal (applies to non-numeric re sults) [facility] ID Date Data Source [id number] 04/23/2021 10:16:00 PM EDT [facility] Name Value Range Interpretation Code Description Data Stephanie rce(s) Supporting Document(s) Magnesium 1.8-2.4 Normal (applies to non-numeric resul ts) [facility] ID Date Data Source [id number] 04/23/2021 10:16:00 PM EDT [facility] Name Value Range Interpretation Code Description Data Stephanie rce(s) Supporting Document(s) Salicylate 2.8-20.0 Below low normal [facility] ID Date Data Source [id number] 04/23/2021 10:16:00 PM EDT [facility] Name Value Range Interpretation Code Description Data Stephanie rce(s) Supporting Document(s) Acetaminophen 10.0-30.0 Below low normal [facility] ID Date Data Source [id number] 04/23/2021 10:13:00 PM EDT [facility] Name Value Range Interpretation Code Description Data Stephanie rce(s) Supporting Document(s) Ethanol Less than 10.0 Normal (applies to non-numeric r esults) [facility] ID Date Data Source [id number] 04/23/2021 09:42:00 PM EDT [facility] Name Value Range Interpretation Code Description Data Stephanie rce(s) Supporting Document(s) White Blood Count 3.5-10.5 Normal (applies to non-numeri c results) [facility] Red Blood Count 3.90-5.00 Normal (applies to non-numeric results) [facility] Hemoglobin 12.0-15.5 Normal (applies to non-numeric resul ts) [facility] Hematocrit 34.9-44.5 Normal (applies to non-numeric resul ts) [facility] Mean Corpuscular Volume 81.2-95.1 Normal (applies to non- numeric results) [facility] Mean Corpuscular Hgb 25.6-32.2 Normal (applies to non-num deena results) [facility] Mean Corpuscular Hgb Conc 32.0-36.0 Normal (applies to no n-numeric results) [facility] Red Cell Distribution Width 11.9-15.5 Normal (appli es to non-numeric results) [facility] Platelet Count 288 x10 3/uL 150-450 Normal (applies to non-numeric results) [facility] Mean Platelet Volume 9.4-12.4 Normal (applies to non-num deena results) [facility] Neutrophils% (Auto) 31.0-71.0 Normal (applies to non-nume frank results) [facility] Lymphocytes% (Auto) 20.0-55.0 Normal (applies to non-nume frank results) [facility] Monocytes% (Auto) 4.0-12.0 Normal (applies to non-numeri c results) [facility] Eosinophils% (Auto) 1.0-8.0 Normal (applies to non-nume frank results) [facility] Basophils% (Auto) 0.0-2.0 Normal (applies to non-numeri c results) [facility] Immature Granulocytes% (Auto) 0.0-2.0 Normal (alexander lies to non-numeric results) [facility] Neutrophils# (Auto) 1.50-6.20 Normal (applies to non-nume frank results) [facility] Lymphocytes# (Auto) 1.20-4.00 Normal (applies to non-nume frank results) [facility] Monocytes# (Auto) 0.00-0.90 Normal (applies to non-numeri c results) [facility] Eosinophils# (Auto) 0.00-0.50 Normal (applies to non-nume frank results) [facility] Basophils# (Auto) 0.00-0.20 Normal (applies to non-numeri c results) [facility] Immature Granulocytes# (Auto) 0.00-7.00 No rmal (applies to non-numeric results) [facility] ID Date Data Source [id number] 04/23/2021 09:58:00 PM EDT [facility] Name Value Range Interpretation Code Description Data Stephanie rce(s) Supporting Document(s) UDS Benzodiazepines Screen Negative Normal (applies to n on-numeric results) [facility] UDS Cocaine Screen Negative Normal (applies to non-numer ic results) [facility] UDS Ampetamine Screen Negative Normal (applies to non-nu meric results) [facility] UDS Cannabinoids Screen Negative Normal (applies to non- numeric results) [facility] UDS Opiates Screen Negative Normal (applies to non-numer ic results) [facility] UDS Barbiturates Screen Negative Normal (applies to non- numeric results) [facility] Threshold Levels Benzodiazepine 200 ng/mL Cocaine 300 ng/mL Amphetamines 1000 ng/mL Cannabinoids (THC) 50 ng/mL Opiates 300 ng/mL Barbiturates 200 ng/mL All positive findings are presumptive and unconfirmed. Confirmation of positive results are performed only at request of provider. Unconfirmed results must not be used for non-medical purposes (i.e. preemployment and legal purposes) ID Date Data Source [id number] 04/23/2021 09:52:00 PM EDT [facility] Collected By: Nurse Initials: JT Time Collected: 2115 Collected By: Nurse Initials: JT Time Collected: 2115 Collected By: Nurse Initials: JT Time Collected: 2115 Name Value Range Interpretation Code Description Data Stephanie rce(s) Supporting Document(s) Color,Urine Colorl-Dk Y Normal (applies to non-numeric res ults) [facility] Clarity,Urine Clear Normal (applies to non-numeric re sults) [facility] Specific [place],Urine 1.005-1.030 Normal (applies to non- numeric results) [facility] pH,Urine 5.0-8.0 Normal (applies to non-numeric resul ts) [facility] Protein,Urine Negative [facility] Glucose,Urine Negative Normal (applies to non-numeric re sults) [facility] Ketones,Urine Negative Normal (applies to non-numeric re sults) [facility] Bil[facility],U[facility] Negative Normal (applies to non-numeric results) [facility] Urobilinogen,Urine 0.2-1.0 Normal (applies to non-numer ic results) [facility] Leukocyte Esterase,Urine Negative Normal (applies to non -numeric results) [facility] Nitrite,Urine Negative Normal (applies to non-numeric re sults) [facility] ID Date Data Source [id number] 04/23/2021 09:52:00 PM EDT [facility] Collected By: Nurse Initials: JT Time Collected: 2115 Collected By: Nurse Initials: JT Time Collected: 2115 Collected By: Nurse Initials: JT Time Collected: 2115 Name Value Range Interpretation Code Description Data Stephanie rce(s) Supporting Document(s) RBC,Urine None Seen [facility] WBC,Urine None Seen [facility] Casts,Urine None Seen Normal (applies to non-numeric resu lts) [facility] Squamous Cells,Urine None Seen [facility] Amorphous Sediment,Urine None Seen [facility] Bacteria,Urine None Seen [facility] ital ID Date Data Source [id number] 04/23/2021 09:52:00 PM EDT [facility] Collected By: Nurse Initials: JT Time Collected: 2115 Collected By: Nurse Initials: JT Time Collected: 2115 Collected By: Nurse Initials: JT Time Collected: 2115 Name Value Range Interpretation Code Description Data Stephanie rce(s) Supporting Document(s) HCG,Ur Negative Normal (applies to non-numeric results) [facility] ID Date Data Source [id number] 04/21/2021 02:53:00 PM EDT [address] CONSULTPATIENT NAME: YARELI HATCH MR#: [id number] PHYSICIAN:AUTHOR: Colleen SMITH,Bogdan DATE: #: ERPATIENT : 00See AddendumHistoryHistory of Presenting IllnessPatient is 20-year-old female, currently lives in [facility], single, pastpsych history of borderline personality disorder, bipolar disorderChief complaint: Suicidal ideationHistory of present illness: Patient was seen along with PA students. Accordingto information from PSA patient was presented last night. She was banging herhead and expressing suicidal ideation while she was at [facility] and that is when shewas brought [...] as reaching out to staff member at [facility] if she does not feel safe.ER [...] not feel safe to return back to [facility].However patient declined and also recommended case management services toprovide her help to find a suitable place that patient likes.DATE SIGNED: 04/21/21 Electronically SignedTIME SIGNED: 1505 BOGDAN MACIAS MD Name Value Range Interpretation Code Description Data Stephanie rce(s) Supporting Document(s) ID Date Data Source [id number] 04/20/2021 11:19:00 PM EDT [facility] Name Value Range Interpretation Code Description Data Stephanie rce(s) Supporting Document(s) SALICYLATE < 1.7 mg/dL 0.0-20.0 [facility] ID Date Data Source [id number] 04/20/2021 11:19:00 PM EDT [facility] Name Value Range Interpretation Code Description Data Stephanie rce(s) Supporting Document(s) ACETAMINOPHEN < 2.0 ug/mL 0-30 [facility] ID Date Data Source [id number] 04/20/2021 11:19:00 PM EDT [facility] Name Value Range Interpretation Code Description Data Stephanie rce(s) Supporting Document(s) ETOH NONE DETECTED N [facility] NONE DETECTED ID Date Data Source [id number] 04/20/2021 11:19:00 PM EDT [facility] Name Value Range Interpretation Code Description Data Stephanie rce(s) Supporting Document(s) GLU 100 mg/dL 70-110 [facility] Patients taking Sulfasalazine may have f alsely depressedGlucose levels. Patients taking Sulfapyridine may havefalsely elevated Glucose levels. Patients should be drawnfor Glucose before the initial administration of eitherdrug. BUN 16 mg/dL 7-23 [facility] CRE 0.657 mg/dL 0.500-1.300 [facility] GFR > 60 mL/min [facility] CHLORIDE 111 mmol/L 99-110 [facility] NA 142 mmol/L 136-147 [facility] POTASSIUM 3.9 mmol/L 3.5-5.1 [facility] TCO2 24 mmol/L 20-33 [facility] ANION GAP 10.9 10.0-20.0 [facility] CA 8.6 mg/dL 8.3-10.7 [facility] ALKALINE PHOS 118 U/L 45-117 [facility] TP 7.4 g/dL 6.0-7.8 [facility] ALB 3.4 g/dL 3.5-5.0 [facility] ESRD Dialysis patient Albumin reference range: 2.9-4.4 g/dL GL 4.0 g/dL 2.3-3.5 [facility] A/G 0.9 1.0-2.5 [facility] T. BILIRUBIN 0.3 mg/dL 0.1-1.1 [facility] The Dimension [place] Total Bilirubin is n ot recommended forpatients undergoing treatment with eltrombopag (Promacta)due to the potential for falsely elevated results. ALTI 46 U/L 6-54 [facility] Patients taking Sulfasalazine and/or Sul fapyridine may havefalsely depressed ALT levels. Patients should be drawn forALT before the initial administration of either drug. AST 33 U/L 6-38 [facility] Patients taking Sulfasalazine and/or Sul fapyridine may havefalsely depressed AST levels. Patients should be drawn forAST before the initial administration of either drug. ID Date Data Source [id number] 04/20/2021 11:01:00 PM EDT [facility] Name Value Range Interpretation Code Description Data Stephanie rce(s) Supporting Document(s) WBC 7.79 x10E3/uL 4.0-10.5 [facility] RBC 3.99 x10E6/uL 4.20-5.40 [facility] Hemoglobin 11.7 g/dL 12.0-16.0 [facility] Hematocrit 35.3 % 37.0-47.0 [facility] MCV 88.5 fL 81.0-99.0 [facility] MCH 29.3 pg 27.0-31.0 [facility] MCHC 33.1 g/dL 32.7-35.6 [facility] RDW 12.2 % 11.5-14.0 [facility] Platelet count 264 x10E3/uL 150-450 [facility] ital MPV 9.5 fl 6.9-9.5 [facility] Neutrophils 65.2 % 34-64 [facility] Lymphocytes 27.2 % 25-45 [facility] Monocytes 6.0 % 1.7-10.6 [facility] Eosinophils 1.0 % 0.4-7.0 [facility] Basophils 0.3 % 0.1-2.0 [facility] Imm. Gran. 0.3 % 0.1-2.0 [facility] Abs. Neutro. 5.08 x10E3/uL 1.2-7.6 [facility] Abs. Lymph. 2.12 x10E3/uL 1.0-3.5 [facility] Abs. Kerr. 0.47 x10E3/uL 0.1-1.0 [facility] Abs. Eosin. 0.08 x10E3/uL 0.1-0.7 [facility] Abs. Baso. 0.02 x10E3/uL 0.0-0.1 [facility] Abs. Imm. Gran. 0.02 x10E3/uL 0.0-0.1 [facility]ital ANRBC% 0 % 0 [facility] ID Date Data Source [id number] 04/20/2021 10:40:00 PM EDT [facility] Name Value Range Interpretation Code Description Data Stephanie rce(s) Supporting Document(s) LCOVID-19, [facility]LL NEGATIVE [facility] This lab was ordered by [facility] and reported by [facility]. ID Date Data Source [id number] 04/20/2021 11:16:00 PM EDT [facility] Name Value Range Interpretation Code Description Data Stephanie rce(s) Supporting Document(s) COVID-19, CORDELL NEGATIVE NEGATIVE N [facility] Methodology: Isothermal Nucleic Acid Amp lification [...] Emergency Use Authorization. ID Date Data Source [id number] 04/21/2021 03:43:00 PM EDT [facility] Physician DocumentationClaxSaud Hinkle edical CenterName: Yareli DuvallAge: 20 yrsSex: FemaleDOB: 2000MRN: [id number] Date: 04/20/2021Time: 22:29Account#: [id number] MD: NONE, - Per PatientED Physician Catalino Piresposition Summary:04/21/21 15:00Discharge OrderedLocation: Home Self CareafProblem: an ongoing problemafSymptoms: are unchangedafCondition: StableafDiagnosis- Adjustment disorder, unspecifiedafFollowup:af- With: Private Physician- When: 1 week- Reason: Recheck today's complaintsDischarge Instructions:- ADJUSTMENT DISORDERaf- Discharge Summary Fboorun8Flqcj:- Medication Reconciliationaf- Medication Reconciliation Form - 2nd CopyafHPI:04/1104:45 This 20 yrs old White Female presents to ER via Police with complaints ofPsych Problem.na104:45 The patient presents to the emergency department with depression, PT.BROUGHT TO ED BY zi4XQUZ FOR MHE. APPARENTLY SHE WAS HITTING HER [...] 400 mg intramuscular suspension,extended release syringe 400 tcfatvu31 days3. ibuprofen 400 mg Oral tablet 1 [...] Negative for drug dependence, alcohol dependence, auditoryhallucinations, jf7yyomiw hallucinations, homicidal ideation. All other systems are negative.Exam:04:49 Head/Face: Normocephalic, atraumatic. Eyes: Pupils equal round andreactive to light, dr2qtikh-glnmix motions intact. Lids and lashes normal. Conjunctiva [...] 97.7(T); Pulse Ox 95% on R/A; Pain0/10; jl15:06xq770/2:32 Body Mass Index 37.12 (104.33 kg, 167.64 cm)ef110/1115:40 Pain Scale: Zqucokw60:43 grueeklvyd5KOB:03:[birth year] Patient medically screened.na104:50 Data reviewed: vital signs, nurses notes, lab test result(s).na2:31 Order name: Acetaminophen Level; Complete Time: 03::31 Order name: CBC with diff; Complete Time: :31vx539/1022:32 Order name: CMP; Complete Time: 03::32 Order name: COVID-19 PROFILE+LAB; Complete Time: 03::32 Order name: ETOH; Complete Time: 03::32 Order name: Jmfeihpys579/1022:32 Order name: Salicylate Level; Complete Time: 03::32 Order name: Triage - Drug Cqiluywu242/1022:32 Order name: JZlv493:32 Order name: Urine HCG [facility] wtgko060:32 Order name: Diet - Mental Health Tray (call dietary); Complete Time:22::32 Order name: Belongings List; Complete Time: 15::32 Order name: Document Weight and Height for BMI; Complete Time: 15::32 Order name: Mental Health Evaluation; Complete Time: 15::24 Order name: Medically Cleared for Eval by- Psychosocial, Cd Mixer Helper (.PSA)tn5Nstqebosy Medications:15:42 Not Given (Patient Refused): ARIPiprazole 10 mg PO hxrlaa046:42 Not Given (Patient Refused): Loratadine 10 mg PO :42 Not Given (Patient Refused): Singulair Chewable Tablet 10 mg PO tdxovi345:42 Not Given (Patient Refused): Propranolol 10 mg PO fvppof531:42 Not Given (Patient Refused): sertraline 50 mg PO zwoybe712:42 Not Given (Physician Discretion): Topiramate 75 mg PO smlpxz2Btrakgfqhu:Dispatcher [employer] Anshul Loving MD MD afAl-Hussein, Nabeel, MD MD na1Hilborne, Erica RN RN ef1 Name Value Range Interpretation Code Description Data Stephanie rce(s) Supporting Document(s) ID Date Data Source [id number] 04/21/2021 03:43:00 PM EDT [facility] Nurse's NotesClaxton-Naveen Medical Tootie terName: Yareli AdamelAge: 20 yrsSex: FemaleDOB: 2000MRN: [id number] Date: 04/20/2021Time: 22:29Account#: [id number] MD: NONE, - Per PatientDiagnosis: Adjustment disorder, unspecifiedPresentation:04/1022:30 Presenting complaint: Patient states: the sequins winder got me because i wasbanging my head and eg8vqbzgyzgbq to tie something around my neck. International Travel Fever No.CoronavirusScreening: Have you received the COVID vaccine? Yes. Communicable DiseaseScreen:Negative for fever>/= 100 degrees Fahrenheit. Communicable disease screen isnegative.(-) rash or unusual skin lesion (-) travel/contact with traveler (-)respiratorysymptoms. Communication Speaks Wallisian? Yes, is preferred language.22:30 Acuity: Triage 6ou870:30 Acuity Assignment: Triage 4ch278:30 Method Of Arrival: Oeqsegbc2Qfuzrc Assessment:22:31 General: Appears in no apparent distress, [...] 400 mg intramuscular suspension,extended release syringe 400 gssmnie43 days3. ibuprofen 400 mg Oral tablet 1 [...] threats or abuse. Denies injuries from another.Nutritional ea5hbvqvtnip: No deficits noted. Offer of HIV testing: patient was previouslyofferedscreening. Fall Risk None identified.Assessment:22:35 General: Appears in no apparent distress, obese, unkempt, Behavior isagitated. Neuro: qq2Ypncm of Consciousness is awake, alert, obeys commands. Respiratory: Nodeficits noted.04/1100:40 Reassessment: Reassessment: pt continually yelling and arguing andthrowing chairs [employer] fwdenzel aware - MD aware - pt has [...] is generated by a policeagency: Police. The qf8zbkcfus was referred for evaluation because Pt states "the sequins winder got me becauseI wasbanging my head and threatened to tie something around my neck.".14:14 Subjective: The patients chief complaint is Pt presents to the ED withPolice due to em2the pt banging her head against the wall and threatening to tie somethingaround herneck at the [facility] facility. During MHE, pt denies SI/HI/ Pt denieshallucinations. Ptdenies self harm. Pt states she was just mad at [facility] facility due to being"pissed off"because she hates her current [facility] housing. Pt denies being verbally abusivetowardsstaff at [facility]. [facility] Pt states she would like to be discharged home as she is not suicidalandhomicidal. Pt has outpatient services at [facility] counselor [place]. Pt denies legal issues. Pt denies access toguns. PSAspoke with Nikky at [facility]. Nikky states the pt was banging her head in her roomand inthe hallway there at her residence. Nikky states the pt was verbally abusivetowardsstaff. Nikky states there needs to be a better plan for the pt as there seemsto be apattern of her going to the ED since she has been at [facility] since February 13 2021.Delusions are denied, Hallucinations are denied. Patient's mood is euthymic.14:22 Patient reports history of anxiety, Bipolar Disorder, Depression, Other:Borderline fc2Smefbmutior Disorder. Mental Health Admissions: [facility], last 03/2021 CurrentOutpatientMental Health Services: Therapist / Agency: [facility]. Living Environment: Family / Home Support: Fair The patient currentlylives kaley [facility] residence. The patient is single. Detox / Rehab Admissions: None. CurrentOutptAlcohol or Substance Abuse Services: None.14:24 Patient presents to Emergency Department with the following symptomswithin the past 2 qi5ufxqt: self-mutilation, suicidal statements/threats. Objective: Patient iscooperative,Speech is normal. Affect is appropriate. Patient has mutilated themselves bycuttingright arm and left arm Cuts on arms from wire in face mask at [facility] facility twodaysago. Mental status exam: Patients [...] status isnotcurrently needed or appropriate. Consultation: Psych MD informed of patient'sstatus at14:15. Disposition: Medically cleared for disposition by Dr Elizabeth Anguiano.PsychiatricConsult is performed by phone with Dr Macias. DSM-V DX [place] I diagnosis:Adjustment D/OUnspecified [place] II diagnosis: Deferred [place] III diagnosis: None. [place] IVdiagnosis:poor coping skills. Mayes Suicide Severity Rating Scale: Suicidal IdeationRating 0;Intensity of Ideations Rating 0; Suicidal Behavior Rating 0.14:35 Narrative Pt will be discharged back to [facility] per Dr. Macias with a diagnosisof Adjustment sb8Nmglrdbm. Pt can contract for safety. Pt denies SI/HI. Pt will follow up withtheiroutpatient provider, the [facility] and upcomingappointmentswill be verified and expedited. Pt has been provided with the PSA and Reachoutphonenumbers. Pt has been instructed to take medications as prescribed and return [facility] ED should problems continue or worsen. Per Dr. Macias, pt will complete 5copingskills/5 goals[address]15:[address] Macias spoke with ED Dr. Strauss. Dr. Macias states the ptcapable of fq0omusbo to the ED whenever she feels suicidal and that she needs to. Dr. Alvarezuggestsinvolving Case Management and having [facility] make requests for other housingservices ifthe pt wishes not to live at [facility]. Dr. Macias states if the pt is suicidal andwants [...] 97.7(T); Pulse Ox 95% on R/A; Pain0/10; jl15:20fx555:32 Body Mass Index 37.12 (104.33 kg, 167.64 cm)ef110/1115:40 Pain Scale: Ychapop30:43 bbdmyvgypf9LV Course:04/1022:29 Patient arrived in ED.ef122:29 NONE, - Per Patient is Private Physician.ef122:30 Triage completed.ef122:35 Patient has correct armband on for positive identification. Bed in lowposition. Sitter ef1at bedside. Verbal reassurance given. Pillow given.22:35 Labs drawn. Collected by lab. Nasal Swab.ef110/1103:21 Ramón Levy MD is Attending Physician.na106:52 Resting quietly.fw10:17 Appears to be sleeping.ef115:43 No Physician assisted procedures completed.jj4Qntyxinaechk Medications:15:42 Not Given (Patient Refused): ARIPiprazole 10 mg PO tnhofq400:42 Not Given (Patient Refused): Loratadine 10 mg PO trzzny690:42 Not Given (Patient Refused): Singulair Chewable Tablet 10 mg PO tyoukz281:42 Not Given (Patient Refused): Propranolol 10 mg PO :42 Not Given (Patient Refused): sertraline 50 mg PO wbukoy809:42 Not Given (Physician Discretion): Topiramate 75 mg PO hnfahi3Omedcpn:15:00 Discharge ordered by .af15:43 Disposition: Discharged to home ambulatory.ef115:43 Condition: stable, Provider notified of abnormal vital signs.15:43 Discharge instructions given to patient, Instructed on dischargeinstructions, followup and referral plans. Demonstrated understanding of instructions.15:43 Discharge Assessment: Patient verbalized understanding of dispositioninstructions.Patient able15:43 Patient left the ED.e i9Vwveivgnut:Anshul Strauss MD MD afAl-Hussein, Nabeel, MD MD na1Hilborne, Erica, RN RN jg6RnCidsfBertha Collier RN RN Justin, Loida RN Pearl Veras na0Vtpehauyafu: (The following items were deleted from the chart)00:50 00:40 Reassessment: [facility]14:22 13:54 Referral Information: Evaluation referral is generated by sh1eg125:41 14:35 Narrative Pt will be discharged back to [facility] per Dr. Macias. Pt cancontract for nz6pwtuge. Pt denies SI/HI. [facility] and upcoming appointments will be verifiedandexpedited. Pt has been provided with the PSA and Re[employer] phone numbers. Pt hasbeeninstructed to take medications as prescribed and return to the nearest EDshouldproblems continue or worsen. Per Dr. Macias, pt will complete 5 coping skills/5goals. em214:52 14:14 Subjective: The patients ch ief complaint is Pt presents to the EDwith Police due em2to the pt banging her head against the wall and threatening to tie somethingaround herneck at the [facility] facility. During M[facility], pt denies SI/HI/ Pt denieshallucinations. Ptdenies self harm. Pt states she was just mad at [facility] facility due to being"pissed off"because she hates her current [facility] housing. Pt denies being verbally abusivetowardsstaff at [facility]. [facility]. Pt states she would like to be discharged home as she is not suicidalandhomicidal. Pt has outpatient services at [facility] counselor [place]. Pt denies legal issues. Pt denies access toguns..Delusions are denied, Hallucinations are denied. Patient's mood is euthymic.em2 Name Value Range Interpretation Code Description Data Stephanie rce(s) Supporting Document(s) ID Date Data Source [id number] 04/19/2021 03:01:00 AM EDT [facility] Name Value Range Interpretation Code Description Data Stephanie rce(s) Supporting Document(s) SALICYLATE < 1.7 mg/dL 0.0-20.0 [facility] ID Date Data Source [id number] 04/19/2021 03:01:00 AM EDT [facility] Name Value Range Interpretation Code Description Data Stephanie rce(s) Supporting Document(s) ACETAMINOPHEN < 2.0 ug/mL 0-30 N [facility] ID Date Data Source [id number] 04/19/2021 03:01:00 AM EDT [facility] Name Value Range Interpretation Code Description Data Stephanie rce(s) Supporting Document(s) ETOH NONE DETECTED N [facility] NONE DETECTED ID Date Data Source [id number] 04/19/2021 03:01:00 AM EDT [facility] Name Value Range Interpretation Code Description Data Stephanie rce(s) Supporting Document(s) GLU 86 mg/dL 70-110 [facility] Patients taking Sulfasalazine may have f alsely depressedGlucose levels. Patients taking Sulfapyridine may havefalsely elevated Glucose levels. Patients should be drawnfor Glucose before the initial administration of eitherdrug. BUN 13 mg/dL 7-23 [facility] CRE 0.615 mg/dL 0.500-1.300 N [facility] GFR > 60 mL/min [facility] CHLORIDE 113 mmol/L 99-110 [facility] NA 142 mmol/L 136-147 [facility] POTASSIUM 3.9 mmol/L 3.5-5.1 [facility] TCO2 24 mmol/L 20-33 [facility] ANION GAP 8.9 10.0-20.0 [facility] CA 8.6 mg/dL 8.3-10.7 [facility] ALKALINE PHOS 112 U/L 45-117 [facility] TP 7.3 g/dL 6.0-7.8 [facility] ALB 3.3 g/dL 3.5-5.0 [facility] ESRD Dialysis patient Albumin reference range: 2.9-4.4 g/dL GL 4.0 g/dL 2.3-3.5 H [facility] A/G 0.8 1.0-2.5 [facility] T. BILIRUBIN 0.2 mg/dL 0.1-1.1 [facility] The Dimension [place] Total Bilirubin is n ot recommended forpatients undergoing treatment with eltrombopag (Promacta)due to the potential for falsely elevated results. ALTI 41 U/L 6-54 [facility] Patients taking Sulfasalazine and/or Sul fapyridine may havefalsely depressed ALT levels. Patients should be drawn forALT before the initial administration of either drug. AST 26 U/L 6-38 [facility] Patients taking Sulfasalazine and/or Sul fapyridine may havefalsely depressed AST levels. Patients should be drawn forAST before the initial administration of either drug. ID Date Data Source [id number] 04/19/2021 02:32:00 AM EDT [facility] Name Value Range Interpretation Code Description Data Stephanie rce(s) Supporting Document(s) WBC 7.86 x10E3/uL 4.0-10.5 [facility] RBC 3.92 x10E6/uL 4.20-5.40 [facility] Hemoglobin 11.6 g/dL 12.0-16.0 [facility] Hematocrit 35.0 % 37.0-47.0 [facility] MCV 89.3 fL 81.0-99.0 [facility] MCH 29.6 pg 27.0-31.0 [facility] MCHC 33.1 g/dL 32.7-35.6 [facility] RDW 12.1 % 11.5-14.0 [facility] Platelet count 276 x10E3/uL 150-450 [facility] ital MPV 9.4 fl 6.9-9.5 [facility] Neutrophils 60.4 % 34-64 [facility] Lymphocytes 30.8 % 25-45 [facility] Monocytes 6.9 % 1.7-10.6 [facility] Eosinophils 1.1 % 0.4-7.0 [facility] Basophils 0.3 % 0.1-2.0 [facility] Imm. Gran. 0.5 % 0.1-2.0 [facility] Abs. Neutro. 4.75 x10E3/uL 1.2-7.6 [facility] Abs. Lymph. 2.42 x10E3/uL 1.0-3.5 [facility] al Abs. Kerr. 0.54 x10E3/uL 0.1-1.0 N [facility] l Abs. Eosin. 0.09 x10E3/uL 0.1-0.7 L [facility] al Abs. Baso. 0.02 x10E3/uL 0.0-0.1 [facility] l Abs. Imm. Gran. 0.04 x10E3/uL 0.0-0.1 [facility] spital ANRBC% 0 % 0 [facility] ID Date Data Source [id number] 04/19/2021 02:36:00 AM EDT [facility] Name Value Range Interpretation Code Description Data Stephanie rce(s) Supporting Document(s) PCP VISTA NEG NEGATIVE [facility] MINIMUM LEVEL OF DETECTION IS 25 ng/ml BENZODIAZEPINES NEG NEGATIVE [facility] MINIMUM LEVEL OF DETECTION IS 200 ng/ml COCAINE VISTA NEG NEGATIVE [facility] MINIMUM LEVEL OF DETECTION IS 300 ng/ml AMPHETAMINES NEG NEGATIVE [facility] MINIMUM LEVEL OF DETECTION IS 1000 ng/ml BARBITURATES NEG NEGATIVE [facility] CUTOFF CONCENTRATION IS 200 ng/ml CANNABINOIDS NEG NEGATIVE [facility] CUTOFF CONCENTRATION IS 50 ng/ml METHADONE VISTA NEG NEGATIVE [facility] al MINIMUM LEVEL OF DETECTION IS 300 ng/ml OPIATE VISTA NEG NEGATIVE [facility] MINIMUM DETECTION LEVEL IS 300 ng/ml ID Date Data Source [id number] 04/19/2021 02:16:00 AM EDT [facility] Name Value Range Interpretation Code Description Data Stephanie rce(s) Supporting Document(s) HCG QUAL URINE Negative Negative [facility] ID Date Data Source [id number] 04/19/2021 02:16:00 AM [facility] Name Value Range Interpretation Code Description Data Stephanie rce(s) Supporting Document(s) URINE COLOR Yellow [facility] UAPR Cloudy [facility] UGLU Negative NEGATIVE [facility] URINE BILIRUBIN Negative NEGATIVE [facility] al UKET Negative NEGATIVE [facility] USG 1.029 1.010-1.025 [facility] UBLO Negative NEGATIVE [facility] UpH 5.5 5.0-8.0 [facility] UPRO Negative Negative [facility] UUB 1.0 mg/dL 0.2-1.0 [facility] UNIT Negative Negative [facility] ULEU Negative Negative [facility] ID Date Data Source [id number] 04/19/2021 01:30:00 AM EDT [facility] Name Value Range Interpretation Code Description Data Stephanie rce(s) Supporting Document(s) LCOVID-19, CORDELL NEGATIVE [facility] This lab was ordered by [facility] and reported by [facility]. ID Date Data Source [id number] 04/19/2021 02:30:00 AM EDT [facility] [place] Name Value Range Interpretation Code Description Data Stephanie rce(s) Supporting Document(s) COVID-19, CORDELL NEGATIVE NEGATIVE [facility] Methodology: Isothermal Nucleic Acid Amp lification [...] Emergency Use Authorization. ID Date Data Source [id number] 04/19/2021 02:55:00 PM EDT [facility] Physician DocumentationClaxton-Naveen Hinkle edical CenterName: Yareli AdamelAge: 20 yrsSex: FemaleDOB: 2000MRN: [id number] Date: 04/19/2021Time: 01:17Account#: [id number] 1Private MD: NONE, - Per PatientED Physician Chetan Grover Summary:04/19/21 14:31Discharge OrderedLocation: Home Self CareafProblem: an ongoing problemafSymptoms: are unchangedafCondition: StableafDiagnosis- Bipolar disorder, unspecifiedafFollowup:af- With: Private Physician- When: 1 week- Reason: Recheck today's complaintsDischarge Instructions:- BIPOLAR DISORDERaf- Discharge Summary Ruiebfu09Dnzus:- Medication Reconciliationaf- Medication Reconciliation Form - 2nd CopyafHPI:04/907:14 This 20 yrs old White Female presents to ER via Police with complaints ofPsych Problem.br07:14 Obese 20-year-old female brought by PD for evaluation of self- harm.Please call to seen brpatient where she was seen slamming her head against the wall after attemptingto cutwrists w wire from covid mask. self endorses having been [facility] from [facility].Historical:- Allergies: Haldol; Risperdal;- Home Meds:1. aripiprazole 10 [...] Temp 98.3; Pulse Ox 98% on R/A; Hlikom754.33 kg; eh8Hpteav 5 ft. 6 in. ; Pain 0/10;14:44 BP 119 / 88; Pulse 88; Resp 16; Temp 98; Pulse Ox 98% ;kk201:24 Body Mass Index 37.12 (104.33 kg, 167.64 cm)kk301:24 Pain Scale: Ksgmpny8QGH:01:33 Patient medically screened.br07:17 Data reviewed: vital signs, [...] name: ETOH; Complete Time: 03::37 Order name: Seetnwiii925/0901:37 Order name: Salicylate Level; Complete Time: 03::37 Order name: Triage - Drug Screen; Complete Time: 03::37 Order name: UA; Complete Time: 03::37 Order name: Urine HCG Qualitative; Complete Time: 03::37 Order name: Diet - Mental Health Tray (call dietary):37 Order name: Belongings Cxfezf579:37 Order name: Document Weight and Height for YSFoe938:37 Order name: Mental Health Pyxbkelqypbm972/0901:37 Order name: Mental Health Level :37 Order name: VS q ldgkfvu182/0903:17 Order name: Consult Orders-Psychosocial, Cd Mixer Helper (.PSA)brDispensed Medications:03:37 Drug: B52 IM - (LORazepam 2 mg, diphenhydrAMINE 50 mg, HaloperidolLactate 5 mg) Route: cm4IM; Site: left vastus lateralis;Signatures:Dispatcher [employer] Anshul Loving MD MD afRoberts, Brandon, MD MD brKelly, Krista RN RN yp7PbgzqrjwwWendy martinez RN RN cm4 Name Value Range Interpretation Code Description Data Stephanie rce(s) Supporting Document(s) ID Date Data Source [id number] 04/19/2021 02:55:00 PM EDT [facility] Nurse's NotesClaxton-Tracy City Medical Tootie terName: Yareli DuvallAge: 20 yrsSex: FemaleDOB: 2000MRN: [id number] Date: 04/19/2021Time: 01:17Account#: [id number] 1Polga SMITH: NONE, - Per PatientDiagnosis: Bipolar disorder, unspecifiedPresentation:04/901:18 Presenting complaint: Patient states: "Well, the sequins winder came because I wasbanging my yz3tvae on the wall and I wasn't being suicidal.". Coronavirus Screening: Have youbeendiagnosed with COVID-19 in the past 30 days? no Are you currently on quarantinebyPublic Health? no Flu-like symptoms reported in the last 14 days: no. Have youhadclose contact with confirmed or suspected COVID-19 case? no Do you live in asettingwhere a large of amount of people live, such as intermediate, family care,nursing home, etc?yes. Have you traveled to a location with widespread or ongoing COVID-19communityspread or outside of [facility]? no Have you traveled internationally or hadcontact withsomeone that has traveled and has been ill in the past 3 weeks? no Have youreceivedthe COVID vaccine? Yes Sophia unknown. Communication Speaks Wallisian? Yes, ispreferredlanguage. Language Line Services needed? No Are TDD needed? No. Best learningmethod:discussion. Learning barriers: none identified.01:18 Acuity: Triage 4kj178:18 Method Of Arrival: Grfxvpkv363:19 Acuity Assignment: Triage 9ci481:21 International Travel Fever No. Communicable Disease Screen: Negative forfever>/= 100 af4mknhguy Fahrenheit. Communicable disease screen is negative. (-) rash orunusual skinlesion (-) travel/contact with traveler (-) respiratory symptoms.Triage Assessment:01:24 General: Appears unkempt, well nourished, Behavior is appropriate forage, cooperative, ql5Brcbwf fever, chills. Sepsis Screening: (1)Signs/symptoms infection Sepsis isnotsuspected. Pain: Denies pain. PSS-3 Now I'm going to ask you some questionsthat we askeveryone treated here, no matter what problem they are here for. It is part of[facility]'s policy and it helps us to [...] 400 mg intramuscular suspension,extended release syringe 400 geciwez65 days3. ibuprofen 400 mg Oral tablet 1 [...] threats or abuse. Denies injuries from another.Nutritional kv7ylozlcyrs: No deficits noted. Offer of HIV testing: patient was previouslyofferedscreening. Fall Risk None identified.Assessment:01:35 Reassessment: No changes from previously documented assessment.kk301:54 Reassessment: Patient refused to have labs drawn, explained mental healthprocess and kk3the steps necessary to be medically cleared, patient still refused, PSA and EDprovidermade aware.02:22 Reassessment: patient starts refusing blood work and screaming at staff.OPD called to ps5ihknpss, patient is known to be aggressive. Patient gets aggitated when thepolice gethere and continues to scream at staff, code orange called. Patient agrees toget bloodwork done. .03:38 Reassessment: patient tries to elope twice, walking out to the ramp.Patient was ep9zvzphksfct and followed out to the ramp, patient did come back inside bothtimes.Patient begins hitting her head off the wall and not cooperating with staff andyelling/ calling staff vulgar names. Patient has no self control at this timescreamingin the ER. Code carmen called..03:52 Reassessment: Patient placed in 4 point restraints at 0342 due tocontinued lack of ws4zaws control.04:33 Reassessment: patient released from restraints at 0433.cm404:46 Reassessment: Patient appears in no apparent distress at this time.cm407:30 Reassessment: Patient appears in no apparent distress at this time. Nochanges from gn4jaularades documented assessment. Patient sleeping.09:57 Reassessment: Patient appears in no apparent distress at this time. Nochanges from ar8agrbtivvvo documented assessment. Patient sleeping. .Psychosocial:07:26 SAFE Act Report Not Completed. Intervention: Observation Level 3. Mentalhealth consult 8 initiated at 07:26. Referral Information: Evaluation referral is generatedby apolice agency: [employer]. The patient was referred for evaluation because hittinghead offthe wall.11:33 Subjective: The patients chief complaint is hitting head off wall. Ptpresents to the am11ED with [employer] after hitting her head off the wall at [facility]. Pt reports she waslightlyhitting her head off the wall. Pt reports that she had her headphones in so shedid nothear staff when they were asking her to stop. Pt states that because she didnot stopstaff at [facility] called the police on her to be brought in. Pt denies SI/HI. Ptdeniesaccess to guns. Pt reports suicide attempts in the past. Pt has been inpatientbeforenumerous times at numerous facilities last being three days ago at [facility]. Ptreportsthat she has been and eating and sleeping well. Pt [facility] Pt states that she does not feelshe needsinpatient services at this time. Pt reports she feels she would be safe to bedischarged home at this time back to [facility]. Delusions are denied, Hallucinationsaredenied. Patient's mood is depressed.12:00 Patient reports history of anxiety, Bipolar Disorder, Depression, self-mutilation, ua96Opnqyz Health Admissions: multiple last yash ng at [facility] two days ago CurrentOutpatient Mental Health Services: [facility]iatrist / [facility].LivingEnvironment: Family / Home Support: good [facility]12[facility]04 Patient presents to Emergency Department with the following symptomswithin the past 2 oi38pwmzy: Anger, anxiety, depressed mood, poor concentration, poor impulsecontrol,suicidal ideation with no plan.12:06 Objective: Patient is cooperative, Speech is normal. Affect isappropriate. Mental wq08rfozlg exam: Patients appearance is appropriate, Patient's behavior [...] patient's status at 13:33, ED MDnotified of na49rlgupgdl status at 13:33. Disposition: Medically cleared for disposition by [facility].Psychiatric Consult is performed by phone with Dr Strauss The patient has asafedestination which is Pt will be discharged to [facility] per Dr. Canela. [facility] and denies SI/HI. Pt will follow up with outpatient next week. Pt willtakemedications as prescribed. Pt provided contact information for JIMY Mazariegos. Ptwill come to the ED if problems continue or worsen. DSM-V DX [place] I diagnosis:BipolarD/O, Unspecified [place] II diagnosis: Deferred [place] III diagnosis: None. [place] IVdiagnosis: poor impulse control. The patient is not a family service center director ormilitarydependent. Mayes Suicide Severity Rating Scale: Suicidal Ideation Rating 0;Intensity of Ideations Rating 0; Suici reji Behavior Rating 0.Psych:01:28 Subjective: Patient's mood is euphoric, Delusions are denied,Hallucinations are denied mh2Jfbcyo thoughts of suicide. Denies suicidal plan. Objective: [...] Temp 98.3; Pulse Ox 98% on R/A; Pzacky349.33 kg; sa7Uonvdy 5 ft. 6 in. ; Pain 0/10;14:44 BP 119 / 88; Pulse 88; Resp 16; Temp 98; Pulse Ox 98% ;kk201:24 Body Mass Index 37.12 (104.33 kg, 167.64 cm)kk301:24 Pain Scale: Rtugicy7WF Course:01:17 Patient arrived in ED.kk301:18 NONE, - Per Patient is Private Physician.kk301:19 Triage completed.kk301:30 Ratna Barbosa, RN is Primary Nurse.kk301:33 Zeeshan Grover MD is Attending Physician.br01:35 Urine collected. Clean catch specimen. Nasal Swab Collected by Nurse.kk301:40 Patient has correct armband on for positive identification. Placed ingown. Bed in low kq1nostvgxy. Call light in reach. Side rails up [...] has no functional deficits.14:55 Patient left the ED.if8Srcquzpmtu:Anshul Strauss MD MD afKnight, Kristin, RN RN io7Bdsn, Zeeshan Kennedy MD MD brKelly, Krista, RN RN yj2QmoxqrchUsha apple8Wendy Severino, RN RN pl1Ulby, Olivia, RN RN sw2 Name Value Range Interpretation Code Description Data Stephanie rce(s) Supporting Document(s) ID Date Data Source [id number] 04/17/2021 10:05:00 AM EDT [facility] Name Value Range Interpretation Code Description Data [facility] Supporting Document(s) Respiratory specimen severe acute respir atory syndrome coronavirus 2 (SARS-CoV-2) RNA Negative (qualifier value) [facility] This lab was ordered by [facility] and reported by . ID Date Data Source [id number] 04/17/2021 10:35:00 AM EDT [facility] Name Value Range Interpretation Code Description Data Stephanie rce(s) Supporting Document(s) SARS-CoV-2 RNA Negative Normal (applies to non-numeric r esults) [facility] Negative results should be treated as pr [...] Certificate of Accreditation. Factsheets for healthcare providers: https://www.fda.gov/media/381088/download Factsheets for patients: https://www.fda.gov/media/413106/download The ID NOW Instrument is a rapid molecular in vitro diagnostic test utilizing an isothermal nucleic acid amplification technology intended for the qualitative detection of nucleic acid from the SARS-CoV-2 viral RNA. THIS IS A STATE REPORTABLE COMMUNICABLE DISEASE. Manual entry verified by Megan Murphy 04/17/21 1034 ID Date Data Source [id number] 04/17/2021 10:56:00 AM EDT [facility] Name Value Range Interpretation Code Description Data Stephanie rce(s) Supporting Document(s) HCG,Ur Negative Normal (applies to non-numeric results) [facility] ID Date Data Source [id number] 04/17/2021 02:47:00 AM [facility] Name Value Range Interpretation Code Description Data Stephanie rce(s) Supporting Document(s) UDS Benzodiazepines Screen Negative Normal (applies to n on-numeric results) [facility] UDS Cocaine Screen Negative Normal (applies to non-numer ic results) [facility] UDS Ampetamine Screen Negative Normal (applies to non-nu meric results) [facility] UDS Cannabinoids Screen Negative Normal (applies to non- numeric results) [facility] UDS Opiates Screen Negative Normal (applies to non-numer ic results) [facility] UDS Barbiturates Screen Negative Normal (applies to non- numeric results) [facility] Threshold Levels Benzodiazepine 200 ng/mL Cocaine 300 ng/mL Amphetamines 1000 ng/mL Cannabinoids (THC) 50 ng/mL Opiates 300 ng/mL Barbiturates 200 ng/mL All positive findings are presumptive and unconfirmed. Confirmation of positive results are performed only at request of provider. Unconfirmed results must not be used for non-medical purposes (i.e. preemployment and legal purposes) ID Date Data Source [id number] 04/17/2021 02:46:00 AM [facility] Collected By: Nurse Initials: JT Time Collected: 214 Collected By: Nurse Initials: JT Time Collected: 214 Name Value Range Interpretation Code Description Data Stephanie rce(s) Supporting Document(s) Color,Urine Colorl-Dk Y Normal (applies to non-numeric res ults) [facility] Clarity,Urine Clear Normal (applies to non-numeric re sults) [facility] Specific [place],Urine 1.005-1.030 [facility] pH,Urine 5.0-8.0 Normal (applies to non-numeric resul ts) [facility] Protein,Urine Negative Normal (applies to non-numeric re sults) [facility] Glucose,Urine Negative Normal (applies to non-numeric re sults) [facility] Ketones,Urine Negative Normal (applies to non-numeric re sults) [facility] Blood,Urine Negative [facility] l Bilirubin,Urine Negative [facility] pital Urobilinogen,Urine 0.2-1.0 Normal (applies to non-numer ic results) [facility] Leukocyte Esterase,Urine Negative [facility] Nitrite,Urine Negative Normal (applies to non-numeric re sults) [facility] ID Date Data Source [id number] 04/17/2021 02:46:00 AM EDT [facility] Collected By: Nurse Initials: JT Time Collected: 214 Collected By: Nurse Initials: JT Time Collected: 214 Name Value Range Interpretation Code Description Data Stephanie rce(s) Supporting Document(s) RBC,Urine None Seen [facility] WBC,Urine None Seen [facility] Casts,Urine None Seen Normal (applies to non-numeric resu lts) [facility] Squamous Cells,Urine None Seen [facility] Amorphous Sediment,Urine None Seen [facility] Bacteria,Urine None Seen [facility] ital ID Date Data Source [id number] 04/17/2021 02:29:00 AM EDT [facility] Name Value Range Interpretation Code Description Data Stephanie rce(s) Supporting Document(s) Sodium 139 mmol/L 136-145 Normal (applies to non-numeric resul ts) [facility] Potassium 3.5-5.1 Below low normal [facility] spital Chloride 102 mmol/L 98-107 Normal (applies to non-numeric resul ts) [facility] Carbon Dioxide CO2 21-32 Normal (applies to non-numer ic results) [facility] Anion Gap 5.0-16.0 Normal (applies to non-numeric resul ts) [facility] BUN 12 mg/dL 7-18 Normal (applies to non-numeric results) [facility] Creatinine,Serum 0.7-1.2 Normal (applies to non-numeric results) [facility] GFR >60 Normal (applies to non-numeric results) [facility] Glucose Level 99 mg/dL 60-99 Normal (applies to non-numeric re sults) [facility] Reference range is only applicable when patient is fasting Note the following drug interference: Sulfasalazine Sulfapyridine Can see falsely depressed Can see falsely elevated result with up to 17% results with up to 11% decrease in measurement increase in measurement Recommend patients be collected for this test prior to administration of either drug. Calcium 8.5-10.1 Normal (applies to non-numeric resul ts) [facility] Bilirubin,Total 0.1-1.9 Normal (applies to non-numeric results) [facility] SGOT(AST) 26 U/L 15-37 Normal (applies to non-numeric resul ts) [facility] Note the following drug interference: Sulfasalazine Sulfapyridine Can see falsely depressed Can see falsely elevated result with up to 10% results with up to 10% decrease in measurement increase in measurement Recommend patients be collected for this test prior to administration of either drug. SGPT(ALT) 45 U/L 12-78 Normal (applies to non-numeric resul ts) [facility] Note the following drug interference: Sulfasalazine Sulfapyridine Can see falsely depressed Can see falsely elevated result with up to 29% results with up to 10% decrease in measurement increase in measurement Recommend patients be collected for this test prior to administration of either drug. Alkaline Phosphatase 133 U/L 38-126 Above high normal [facility] can increase Alkaline Phosp le vels up to 2 times the normal adult value. Normal values for children and adolescents are 2 to 3 times the normal adult value. Total Protein 6.0-8.2 Normal (applies to non-numeric re sults) [facility] Albumin Level 3.4-5.0 Normal (applies to non-numeric re sults) [facility] ID Date Data Source [id number] 04/17/2021 02:29:00 AM EDT [facility] Name Value Range Interpretation Code Description Data Stephanie rce(s) Supporting Document(s) Salicylate 2.8-20.0 Below low normal [facility] ospital ID Date Data Source [id number] [facility]21 [facility] Value Range Interpretation Code Description Data Stephanie rce(s) Supporting Document(s) Troponin I 0.000-0.056 Normal (applies to non-numeric resu lts) [facility] ID Date Data Source [id number] 04/17/2021 02:29:00 AM EDT [facility] Name Value Range Interpretation Code Description Data Stephanie rce(s) Supporting Document(s) Acetaminophen 10.0-30.0 Below low normal [facility] ID Date Data Source [id number] 04/17/2021 02:29:00 AM EDT [facility] Name Value Range Interpretation Code Description Data Stephanie rce(s) Supporting Document(s) Magnesium 1.8-2.4 Normal (applies to non-numeric resul ts) [facility] ID Date Data Source [id number] 04/17/2021 02:28:00 AM EDT [facility] Name Value Range Interpretation Code Description Data Stephanie rce(s) Supporting Document(s) Ethanol Less than 10.0 Normal (applies to non-numeric r esults) [facility] ID Date Data Source [id number] 04/17/2021 02:07:00 AM EDT [facility] Name Value Range Interpretation Code Description Data Stephanie rce(s) Supporting Document(s) White Blood Count 3.5-10.5 Normal (applies to non-numeri c results) [facility] Red Blood Count 3.90-5.00 Normal (applies to non-numeric results) [facility] Hemoglobin 12.0-15.5 Normal (applies to non-numeric resul ts) [facility] Hematocrit 34.9-44.5 Normal (applies to non-numeric resul ts) [facility] Mean Corpuscular Volume 81.2-95.1 Normal (applies to non- numeric results) [facility] Mean Corpuscular Hgb 25.6-32.2 Normal (applies to non-num deena results) [facility] Mean Corpuscular Hgb Conc 32.0-36.0 Normal (applies to no n-numeric results) [facility] Red Cell Distribution Width 11.9-15.5 Normal (appli es to non-numeric results) [facility] Platelet Count 285 x10 3/uL 150-450 Normal (applies to non-numeric results) [facility] Mean Platelet Volume 9.4-12.4 Normal (applies to non-num deena results) [facility] Neutrophils% (Auto) 31.0-71.0 Normal (applies to non-nume frank results) [facility] Lymphocytes% (Auto) 20.0-55.0 Normal (applies to non-nume frank results) [facility] Monocytes% (Auto) 4.0-12.0 Normal (applies to non-numeri c results) [facility] Eosinophils% (Auto) 1.0-8.0 Normal (applies to non-nume frank results) [facility] Basophils% (Auto) 0.0-2.0 Normal (applies to non-numeri c results) [facility] Immature Granulocytes% (Auto) 0.0-2.0 Normal (alexander lies to non-numeric results) [facility] Neutrophils# (Auto) 1.50-6.20 Above high normal [facility] Lymphocytes# (Auto) 1.20-4.00 Normal (applies to non-nume frank results) [facility] Monocytes# (Auto) 0.00-0.90 Normal (applies to non-numeri c results) [facility] Eosinophils# (Auto) 0.00-0.50 Normal (applies to non-nume frank results) [facility] Basophils# (Auto) 0.00-0.20 Normal (applies to non-numeri c results) [facility] Immature Granulocytes# (Auto) 0.00-7.00 No rmal (applies to non-numeric results) [facility] ID Date Data Source [id number] 04/14/2021 03:02:00 PM EDT [address] CONSULTPATIENT NAME: DAMARISYARELI Savage MR#: [id number] PHYSICIAN:AUTHOR: Surendra SMITHP. DATE: RM#: ERPATIENT : 00HistoryAdditional NotesYareli is a 20-year-old single white female with the long history of mentalillness and multiple hospitalization pretty much in most of the psych hospitalin this area. She was recently discharged on Wednesday of last week from here andshe was sent to [facility] she claims she became suicidal after talking [...] her suicidal.So, then she was taken to [facility] in [facility] While she was in the [facility],she claims she escaped from the hospital at which point a pickup order wasissued then she was brought to [facility] ER yesterday. I saw her today int ER.In my evaluation today which I conducted with Gloria, ad operations coordinator and2 students from [facility] I found her to be not hostile, [...] rce(s) Supporting Document(s) ID Date Data Source [id number] 04/13/2021 10:06:00 PM EDT [facility] Name Value Range Interpretation Code Description Data Stephanie rce(s) Supporting Document(s) WBC 11.79 x10E3/uL 4.0-10.5 [facility] RBC 4.27 x10E6/uL 4.20-5.40 [facility] Hemoglobin 12.5 g/dL 12.0-16.0 [facility] Hematocrit 37.7 % 37.0-47.0 [facility] MCV 88.3 fL 81.0-99.0 [facility] MCH 29.3 pg 27.0-31.0 [facility] MCHC 33.2 g/dL 32.7-35.6 [facility] RDW 12.4 % 11.5-14.0 [facility] Platelet count 262 x10E3/uL 150-450 [facility] ital MPV 10.3 fl 6.9-9.5 [facility] Neutrophils 75.6 % 34-64 [facility] Lymphocytes 17.2 % 25-45 [facility] Monocytes 5.9 % 1.7-10.6 [facility] Eosinophils 0.6 % 0.4-7.0 [facility] Basophils 0.3 % 0.1-2.0 [facility] Imm. Gran. 0.4 % 0.1-2.0 [facility] Abs. Neutro. 8.92 x10E3/uL 1.2-7.6 [facility] Abs. Lymph. 2.03 x10E3/uL 1.0-3.5 [facility] Abs. Kerr. 0.69 x10E3/uL 0.1-1.0 [facility] Abs. Eosin. 0.07 x10E3/uL 0.1-0.7 L [facility] Abs. Baso. 0.03 x10E3/uL 0.0-0.1 [facility] Abs. Imm. Gran. 0.05 x10E3/uL 0.0-0.1 [facility] spital ANRBC% 0 % 0 [facility] ID Date Data Source [id number] 04/13/2021 09:38:00 PM EDT [facility] Name Value Range Interpretation Code Description Data Stephanie rce(s) Supporting Document(s) GLU 95 mg/dL 70-110 [facility] Patients taking Sulfasalazine may have f alsely depressedGlucose levels. Patients taking Sulfapyridine may havefalsely elevated Glucose levels. Patients should be drawnfor Glucose before the initial administration of eitherdrug. BUN 14 mg/dL 7-23 [facility] CRE 0.672 mg/dL 0.500-1.300 [facility] GFR > 60 mL/min [facility] CHLORIDE 110 mmol/L 99-110 [facility] NA 141 mmol/L 136-147 [facility] POTASSIUM 4.5 mmol/L 3.5-5.1 [facility] TCO2 23 mmol/L 20-33 [facility] ANION GAP 12.5 10.0-20.0 [facility] CA 8.6 mg/dL 8.3-10.7 [facility] ALKALINE PHOS 125 U/L 45-117 [facility] TP 8.0 g/dL 6.0-7.8 [facility] ALB 3.6 g/dL 3.5-5.0 [facility] ESRD Dialysis patient Albumin reference range: 2.9-4.4 g/dL GL 4.4 g/dL 2.3-3.5 [facility] A/G 0.8 1.0-2.5 [facility] T. BILIRUBIN 0.3 mg/dL 0.1-1.1 [facility] The Dimension [place] Total Bilirubin is n ot recommended forpatients undergoing treatment with eltrombopag (Promacta)due to the potential for falsely elevated results. ALTI 51 U/L 6-54 [facility] Patients taking Sulfasalazine and/or Sul fapyridine may havefalsely depressed ALT levels. Patients should be drawn forALT before the initial administration of either drug. AST 32 U/L 6-38 [facility] Patients taking Sulfasalazine and/or Sul fapyridine may havefalsely depressed AST levels. Patients should be drawn forAST before the initial administration of either drug. ID Date Data Source [id number] 04/13/2021 09:38:00 PM EDT [facility] Name Value Range Interpretation Code Description Data Stephanie rce(s) Supporting Document(s) SALICYLATE < 1.7 mg/dL 0.0-20.0 [facility] ID Date Data Source [id number] 04/13/2021 09:38:00 PM EDT [facility] Name Value Range Interpretation Code Description Data Stephanie rce(s) Supporting Document(s) ACETAMINOPHEN < 2.0 ug/mL 0-30 [facility] ID Date Data Source [id number] 04/13/2021 09:38:00 PM EDT [facility] Name Value Range Interpretation Code Description Data Stephanie rce(s) Supporting Document(s) ETOH 0.007 g/dL NONE DETECTED [facility] ID Date Data Source [id number] 04/13/2021 08:47:00 PM EDT [facility] Name Value Range Interpretation Code Description Data Stephanie rce(s) Supporting Document(s) LCOVID-19, CORDELL NEGATIVE [facility] This lab was ordered by [facility] and reported by [facility]. ID Date Data Source [id number] 04/13/2021 09:21:00 PM EDT [facility] Name Value Range Interpretation Code Description Data Stephanie rce(s) Supporting Document(s) COVID-19, CORDELL NEGATIVE NEGATIVE [facility] Methodology: Isothermal Nucleic Acid Amp lification [...] Emergency Use Authorization. ID Date Data Source [id number] 04/13/2021 09:48:00 PM EDT [facility] Name Value Range Interpretation Code Description Data Stephanie rce(s) Supporting Document(s) PCP VISTA NEG NEGATIVE [facility] MINIMUM LEVEL OF DETECTION IS 25 ng/ml BENZODIAZEPINES NEG NEGATIVE [facility] MINIMUM LEVEL OF DETECTION IS 200 ng/ml COCAINE VISTA NEG NEGATIVE [facility] MINIMUM LEVEL OF DETECTION IS 300 ng/ml AMPHETAMINES NEG NEGATIVE [facility] al MINIMUM LEVEL OF DETECTION IS 1000 ng/ml BARBITURATES NEG NEGATIVE [facility] CUTOFF CONCENTRATION IS 200 ng/ml CANNABINOIDS NEG NEGATIVE [facility] al CUTOFF CONCENTRATION IS 50 ng/ml METHADONE VISTA NEG NEGATIVE [facility] al MINIMUM LEVEL OF DETECTION IS 300 ng/ml OPIATE VISTA NEG NEGATIVE [facility] MINIMUM DETECTION LEVEL IS 300 ng/ml ID Date Data Source [id number] 04/13/2021 09:38:00 PM EDT [facility] Name Value Range Interpretation Code Description Data Stephanie rce(s) Supporting Document(s) URINE COLOR Yellow [facility] UAPR Turbid [facility] UGLU Negative NEGATIVE [facility] URINE BILIRUBIN Negative NEGATIVE [facility] UKET Negative NEGATIVE [facility] USG 1.017 1.010-1.025 [facility] UBLO Negative NEGATIVE [facility] UpH 7.5 5.0-8.0 [facility] UPRO Negative Negative [facility] UUB 1.0 mg/dL 0.2-1.0 [facility] UNIT Negative Negative [facility] ULEU Trace Negative [facility] ID Date Data Source [id number] 04/13/2021 09:38:00 PM EDT [facility] Name Value Range Interpretation Code Description Data Stephanie rce(s) Supporting Document(s) URINE RBC 0-2 RBCs/HPF NONE SEEN [facility] URINE WBC 0-2 WBCs/HPF NONE SEEN [facility] URINE BACTERIA Few NONE [facility]EN [facility] URINE EPI. Many NONE SEEN [facility] URINE CRYSTAL MANY AMORPHOUS NONE SEEN [facility] ID Date Data Source [id number] 04/13/2021 09:38:00 PM EDT [facility] Name Value Range Interpretation Code Description Data Stephanie rce(s) Supporting Document(s) HCG QUAL URINE Negative Negative [facility] ID Date Data Source [id number] 04/14/2021 04:43:00 PM EDT [facility] Physician DocumentationClaxlexy-Naveen Hinkle edical CenterName: Yareli DuvallAge: 20 yrsSex: FemaleDOB: 2000MRN: [id number] Date: 04/13/2021Time: 20:28Account#: [id number] MD: NONE, - Per PatientED Physician Santiago RajanDisposition Summary:04/14/21 16:06Discharge OrderedLocation: Home Self Pqzdtp9Sbrhnqd: lkzufvkhz7Dncgqkfx: are vnxgfygrocg4Vgccluisk: Itqjodvw1Cutjsizmn- Major depressive disorder, recurrent, ibcqhcyxqjkek0Imizpkpa:rf2- With: Private Physician- When: 2 - 3 days- Reason: Recheck today's complaints, Continuance of careDischarge Instructions:- Discharge Summary Hbtgtbu90- LWSRJOTSVVhe8Ixtnf:- Medication Reconciliationrf2- Medication Reconciliation Form - 2nd Urmfhf8GFF:04/320:42 This 20 yrs old White Female presents to ER via Police with complaints ofPsych Problem.th420:42 Associated signs and symptoms: Pertinent negatives: abdominal pain, chestpain, fever, jk6ngfqaalu, nausea, shortness of breath, vomiting. Patient [facility] evaluation. Patient is well-known to the ER. She has been seenmany timesin the past for the same. She was last here on April 09 and was admitted atthattime. [facility]. She [...] 400 mg intramuscular suspension,extended release syringe 400 wzzltne46 days3. ibuprofen 400 mg Oral tablet 1 [...] Eyes: Negative for acute changes.ENT: Negative for hq2zqaar discharge, rhinorrhea, sinus congestion. Neck: Negative for [...] 53.26 (149.69 kg, 167.64 cm)jw523:48 Pain Scale: Jgmwjja880/0411:45 Pain Scale: Zdczqdu664:43 Pain Scale: AdulttlmMDM:04/320:34 Patient medically screened.th410/0406:41 Data reviewed: vital signs, nurses notes, lab test result(s). ED course:Patient zz7mpvpibwg stable in the ER. Patient here for mental health evaluation as above.Case isendorsed to Dr. Rajan at change of shift pending PSA evaluation disposition.Patient ismedically clear and has been cooperative..07:32 Data reviewed: lab test result(s), CBC, drug level(s), acetaminophen,alcohol, ds2tdxjteproj, electrolytes, hepatic panel, urinalysis, urine drug screen,COVID-19.Transition of care: Care assumed from Nils Argueta MD.16:06 ED course: Patient being recommended for discharge home by Dr. Patten with adiagnosis of qd5mbuvqouooc.04/320:39 Order name: Acetaminophen Level; Complete Time: ::39 Order name: CBC with diff; Complete Time: :62us086/0407:33 Interpretation: Abnormal: WBC 11.79; Mild leukocytosis.0:39 Order name: CMP; Complete Time: :0:39 Order name: COVID-19 PROFILE+LAB; Complete Time: ::39 Order name: ETOH; Complete Time: :0:39 Order name: Glucose; Complete Time: 07:80kj312/0407:32 Interpretation: Within normal limits.:39 Order name: Salicylate Level; Complete Time: :0:39 Order name: Triage - Drug Screen; Complete Time: :0:39 Order name: UA; Complete Time: :82zg5710:39 Order name: Urine HCG Qualitative; Complete Time: :17lo3280:39 Order name: Diet - Mental Health Tray (call dietary); Complete Time:23:49 kk0:39 Order name: Belongings List; Complete Time: 05:28as005:39 Order name: Document Weight and Height for BMI; Complete Time: :12yy243/0320:39 Order name: Mental Health Evaluation; Complete Time: :97ay2190:39 Order name: Mental Health Level 3; Complete Time: :37bu3870:39 Order name: VS q shift; Complete Time: 23:72gg336/0321:49 Order name: Medically Cleared for Eval by-Psychosocial, Cd Mixer Helper (.PSA)yd2Pvmnernvm Medications:04/322:16 Drug: Ibuprofen 600 mg [ibuprofen 600 mg tablet (1 tabs)] Route: PO;kk223:48 Follow up: Pain 3 Yiawylu461/0410:16 Drug: Propranolol 10 mg Route: PO;ef110:46 Follow up: Response: No adverse zakdcaxwyd270:16 Drug: sertraline 50 mg Route: PO;ef110:46 Follow up: Response: No adverse xjhfpqwbow455:16 Drug: Topiramate 75 mg Route: PO;ef110:45 Follow up: Response: No adverse emyuatxsvi000:16 Drug: Loratadine 10 mg Route: PO;ef110:45 Follow up: Response: No adverse :17 Drug: ARIPiprazole 10 mg Route: PO;ef110:46 Follow up: Response: No adverse jtomrxrjxp437:45 Drug: Acetaminophen Tablet 650 mg Route: PO;ef111:45 Follow up: Pain 010 Fpggufy0Vyffyydanf:Disp atcher [employer] Zakia Phillips RN RN sl4NdfclvoNils bansal MD MD ll2RsbspFortunato humphrey RN RN bd3VbblgzddAmi arthur RN RN ic7AqlhkSantiago MD MD rf2 Name Value Range Interpretation Code Description Data Stephanie rce(s) Supporting Document(s) ID Date Data Source [id number] 04/14/2021 04:43:00 PM EDT [facility] Nurse's NotesClaxton-Naveen Medical Tootie terName: Yareli DuvallAge: 20 yrsSex: FemaleDOB: 2000MRN: [id number] Date: 04/13/2021Time: 20:28Account#: [id number] MD: NONE, - Per PatientDiagnosis: Major depressive disorder, recurrent, unspecifiedPresentation:04/320:29 Presenting complaint: [facility] states[facility] sj2Orajcvz to this ED by [facility] International Travel Fever No. Coronavirus Screening: Have you beendiagnosed with COVID-19 in the past 30 days? no Are you currently on quarantinebyPublic Health? no Flu-like symptoms reported in the last 14 days: no. Have youhadclose contact with confirmed or suspected COVID-19 case? no Do you live in asettingwhere a large of amount of people live, such as intermediate, family care,nursing home, etc?yes. Have you traveled to a location with widespread or ongoing COVID-19communityspread or outside of [facility]? no Have you traveled internationally or hadcontact withsomeone that has traveled and has been ill in the past 3 weeks? no Have youreceivedthe COVID vaccine? Yes Sophia x 1 dose. Communicable Disease Screen: Negativeforfever>/= 100 degrees Fahrenheit. Communicable disease screen is negative. (-)rash orunusual skin lesion (-) travel/contact with traveler (-) respiratory symptoms.Communication Speaks Wallisian? Yes, is preferred language.20:29 Acuity: Triage 0sx858:29 Method Of Arrival: Wzzchsdw374:30 Acuity Assignment: Triage 8ua8Juncsj Assessment:20:31 General: Appears in no apparent distress, [...] Exhibiting depressed mood. Positive screen for depression, provideraware ofpositive screening. Education provided. Over the [...] threats or abuse. Denies injuries from another.Nutritional nr8uxvttbtms: No deficits noted. Offer of HIV testing: patient was previouslyofferedscreening. Fall Risk None identified.Assessment:20:49 General: see triage assessment.kk222:23 Reassessment: patient hitting head on wall, states that we can't doanything to help kk2her because she can't cope without her music. Patient states she already triedcoloring, declined medication, declined any other help with coping. c/o pain inleftleg with no hx of injury. MD aware, ibuprofen ordered and given. .23:48 Reassessment: [...] appears in no apparent distress at this time.cu3Riaccwgsnoqq:04/322:01 Mental health consult is initiated at 22:01.sm822:12 SAFE Act Report Not Completed. Intervention: Observation Level 3.Referral Information: fp5Bmnkxiyocn referral is generated by a police agency: [employer]. The patient wasreferred forevaluation because suicidal ideations.22:23 Subjective: The patients chief complaint is Pt presents to the ED by [place] xs9eecjsrwua. As PSA was going into her room pt was tapping her head off the wall.Pt wasdischarged from our unit on Wednesday (04/11), she then went to [facility] late Wednesday night. Pt had [facility] and made toback to TLSwhere the police picked her up and brought [...] has a long [facility]. She has a history of Anxiety, Bipolar, Depression, andBPD. Pt hasa history of reported suicide attempts by overdosing. Pt denies hallucinations.Pt doesnot present with any delusional thoughts. Delusions are denied, Hallucinationsaredenied. Patient's mood is depressed, Having thoughts of suicide. Deniessuicidal plan.homicide: denies plan. Homicidal thoughts directed towards mother.22:30 Narrative PSA spoke to Dulce at [facility] ([phone]). She states that itis "the same sm8old thing" as to why the pt is in the ED. She states that the pt was dischargedfromour unit then went to [facility] [facility] for suicidal ideations. She states that thept madeit back to them in scrubs and stated that she asked [facility] what wouldhappen if shewalked out which they told her that they would have to call the police. Policethenshowed up at [facility] and brought her to us.22:33 Patient reports history of anxiety, Bipolar Disorder, Depression, self-mutilation, un9irfokrw attempt: pt reports multiple by overdosing Mental Health Admissions:multipletimes at multiple facilities Current Outpatient Mental Health Services:[facility] [place]. Living Environment: Family / HomeSupport[facility] currently lives in a [facility] apartment. The patient is single. Detox /RehabAdmissions: None. Current Outpt Alcohol or Substance Abuse Services: None.22:34 Patient presents to Emergency Department with the following symptomswithin the past 2 ph9lkzlc: suicidal ideation with no plan. Patient presents [...] patient status is not currently needed orappropriate. cg2Wlbvlmrxjomt: Psych MD informed of patient's status at 22:30, ED MD notified ofpatients status at 22:46. Disposition: Medically cleared for disposition by Meet.Psychiatric Consult is performed by phone with Dr David Little [facility]. [facility] Status: [facility] . Commitment papers are completed. DSM-VDX [place] Idiagnosis: Depression, Unspecified. Insurance Pre-Certification: Not Required.IMHUAdmission [...] Awaiting referral hospitalacceptance.The patient is not a family service center director or dependent. Mayes SuicideSeverityRating Scale: Suicidal Ideation Rating 2; Intensity of Ideations Rating 23;SuicidalBehavior Rating 0.04/416:02 Narrative Pt will be discharged home per Dr. Patten. Pt can contract [facility] and denies am11SI/HI. Pt will follow up with outpatient services. Pt provided contactinformation forPSA and [employer]. Pt will come to the ED if problems continue or worsen.Psych:04/320:50 Subjective: Delusions are denied, Hallucinations are denied Havingthoughts of suicide. lr2Pwdepd suicidal plan. Objective: Patient is cooperative, Speech [...] Temp 98.4; Pulse Ox 97% ; Pain 0/10;tlm1/0323:50 Body Mass Index 53.26 (149.69 kg, 167.64 cm)jw523:48 Pain Scale: Yyygqak083/0411:45 Pain Scale: Ahthply205:43 Pain Scale: AdulttlmED Course:04/320:29 Patient arrived in [...] Physician role handed off by Nils Argueta, HLxc453:32 Santiago Rajan MD is Attending Physician.rf208:16 Diet tray given.vo4Yttrpgawaqxf Medications:04/322:16 Drug: Ibuprofen 600 mg [ibuprofen 600 mg tablet (1 tabs)] Route: PO;kk223:48 Follow up: Pain 3/10 Ptggodc261/0410:16 Drug: Propranolol 10 mg Route: PO;ef110:46 Follow up: Response: No adverse bcvuczfhhr491:16 Drug: sertraline 50 mg Route: PO;ef110:46 Follow up: Response: No adverse ejadbtnipz573:16 Drug: Topiramate 75 mg Route: PO;ef110:45 Follow up: Response: No adverse rhhsrqscve457:16 Drug: Loratadine 10 mg Route: PO;ef110:45 Follow up: Response: No adverse puborqjiyb915:17 Drug: ARIPiprazole 10 mg Route: PO;ef110:46 Follow up: Response: No adverse emhtmzpctn568:45 Drug: Acetaminophen Tablet 650 mg Route: PO;ef111:45 Follow up: Pain 0/10 Niyefui7Ruzqevz:16:06 Discharge ordered by .rf216:43 Condition: stable.tlm16:43 Discharge inst ructions given to patient, Instructed on dischargeinstructions, followup and referral plans. Demonstrated understanding of instructions.16:43 Discharge Assessment: Patient awake, alert and oriented x 3. Nocognitive and/orfunctional deficits noted. Patient verbalized understanding of dispositioninstructions. Patient verbalized understanding of disposition instructions.Patient hasno functional deficits.16:43 Patient left the ED.tlmSignatures:Magaly Gray, RN RN tlmKnight, Zakia, RN RN oo2HsmqyvfNils Argueta MD MD fa4TxlxzFortunato humphrey RN RN yx0ZsseojulAmi dang RN RN wt3UuyqIna Jack am11Measheaw, Usha qs5Fqoiv, MD SARAH Henderson kp8Cjbfgfcipjs: (The following items were deleted from the [...] was referred for evaluation because suicidal ideations 822:50 22:23 Subjective: The patients chief complaint is Pt presents to the EDby [employer] for in4eoaoijyu ideations. A s PSA was going into her room pt was tapping her head offthewall. Pt was discharged from our unit on Wednesday (04/11), [facility] back to [facility] where the police picked her up and brought her to our ED.Patientremains suicidal ideations with no plan. Pt reports that she is also homicidaltowardsher mother. She states that she has no direct plan but states that if she couldget herhands on her she would kill her anyway. Pt reports that she was going by thenameAnthony but changed it to Daisy Myron. She states that she changed it on [...] Name Value Range Interpretation Code Description [facility] Supporting Document(s) ID Date Data Source [id number] 04/12/2021 04:52:00 AM EDT [facility] Name Value Range Interpretation Code Description Data [facility] Supporting Document(s) Sodium 138 mmol/L 136-145 Normal (applies to non-numeric resul ts) [facility] Potassium 3.5-5.1 Normal (applies to non-numeric resul ts) [facility] Chloride 102 mmol/L 98-107 Normal (applies to non-numeric resul ts) [facility] Carbon Dioxide CO2 21-32 Normal (applies to non-numer ic results) [facility] Anion Gap 5.0-16.0 Normal (applies to non-numeric resul ts) [facility] BUN 13 mg/dL 7-18 Normal (applies to non-numeric results) [facility] Creatinine,Serum 0.7-1.2 Normal (applies to non-numeric results) [facility] GFR >60 Normal (applies to non-numeric results) [facility] Glucose Level 97 mg/dL 60-99 Normal (applies to non-numeric re sults) [facility] Reference range is only applicable when patient is fasting Note the following drug interference: Sulfasalazine Sulfapyridine Can see falsely depressed Can see falsely elevated result with up to 17% results with up to 11% decrease in measurement increase in measurement Recommend patients be collected for this test prior to administration of either drug. Calcium 8.5-10.1 Normal (applies to non-numeric resul ts) [facility] Bilirubin,Total 0.1-1.9 Normal (applies to non-numeric results) [facility] SGOT(AST) 30 U/L 15-37 Normal (applies to non-numeric resul ts) [facility] Note the following drug interference: Sulfasalazine Sulfapyridine Can see falsely depressed Can see falsely elevated result with up to 10% results with up to 10% decrease in measurement increase in measurement Recommend patients be collected for this test prior to administration of either drug. SGPT(ALT) 54 U/L 12-78 Normal (applies to non-numeric resul ts) [facility] Note the following drug interference: Sulfasalazine Sulfapyridine Can see falsely depressed Can see falsely elevated result with up to 29% results with up to 10% decrease in measurement increase in measurement Recommend patients be collected for this test prior to administration of either drug. Alkaline Phosphatase 130 U/L 38-126 Above high normal [facility] can increase Alkaline Phosp le vels up to 2 times the normal adult value. Normal values for children and adolescents are 2 to 3 times the normal adult value. Total Protein 6.0-8.2 Above high normal [facility] Albumin Level 3.4-5.0 Normal (applies to non-numeric re sults) [facility] ID Date Data Source [id number] 04/12/2021 04:52:00 AM EDT [facility] Name Value Range Interpretation Code Description Data Stephanie rce(s) Supporting Document(s) Acetaminophen 10.0-30.0 Below low normal [facility] ID Date Data Source [id number] 04/12/2021 04:52:00 AM EDT [facility] Name Value Range Interpretation Code Description Data Stephanie rce(s) Supporting Document(s) Magnesium 1.8-2.4 Normal (applies to non-numeric resul ts) [facility] ID Date Data Source [id number] 04/12/2021 04:52:00 AM EDT [facility] Name Value Range Interpretation Code Description Data Stephanie rce(s) Supporting Document(s) Troponin I 0.000-0.056 Normal (applies to non-numeric resu lts) [facility] ID Date Data Source [id number] 04/12/2021 04:52:00 AM EDT [facility] Name Value Range Interpretation Code Description Data Stephanie rce(s) Supporting Document(s) Salicylate 2.8-20.0 Below low normal [facility] ID Date Data Source [id number] 04/12/2021 04:51:00 AM EDT [facility] Name Value Range Interpretation Code Description Data Stephanie rce(s) Supporting Document(s) Ethanol Less than 10.0 Normal (applies to non-numeric r esults) [facility] ID Date Data Source [id number] 04/12/2021 04:23:00 AM EDT [facility] Name Value Range Interpretation Code Description Data Stephanie rce(s) Supporting Document(s) White Blood Count 3.5-10.5 Normal (applies to non-numeri c results) [facility] Red Blood Count 3.90-5.00 Normal (applies to non-numeric results) [facility] Hemoglobin 12.0-15.5 Normal (applies to non-numeric resul ts) [facility] Hematocrit 34.9-44.5 Normal (applies to non-numeric resul ts) [facility] Mean Corpuscular Volume 81.2-95.1 Normal (applies to non- numeric results) [facility] Mean Corpuscular Hgb 25.6-32.2 Normal (applies to non-num deena results) [facility] Mean Corpuscular Hgb Conc 32.0-36.0 Normal (applies to no n-numeric results) [facility] Red Cell Distribution Width 11.9-15.5 Normal (appli es to non-numeric results) [facility] Platelet Count 306 x10 3/uL 150-450 Normal (applies to non-numeric results) [facility] Mean Platelet Volume 9.4-12.4 Normal (applies to non-num deena results) [facility] Neutrophils% (Auto) 31.0-71.0 Normal (applies to non-nume frank results) [facility] Lymphocytes% (Auto) 20.0-55.0 Normal (applies to non-nume frank results) [facility] Monocytes% (Auto) 4.0-12.0 Normal (applies to non-numeri c results) [facility] Eosinophils% (Auto) 1.0-8.0 Normal (applies to non-nume frank results) [facility] Basophils% (Auto) 0.0-2.0 Normal (applies to non-numeri c results) [facility] Immature Granulocytes% (Auto) 0.0-2.0 Normal (alexander lies to non-numeric results) [facility] Neutrophils# (Auto) 1.50-6.20 Above high normal [facility] Lymphocytes# (Auto) 1.20-4.00 Normal (applies to non-nume frank results) [facility] Monocytes# (Auto) 0.00-0.90 Normal (applies to non-numeri c results) [facility] Eosinophils# (Auto) 0.00-0.50 Normal (applies to non-nume frank results) [facility] Basophils# (Auto) 0.00-0.20 Normal (applies to non-numeri c results) [facility] Immature Granulocytes# (Auto) 0.00-7.00 No rmal (applies to non-numeric results) [facility] ID Date Data Source [id number] 04/12/2021 03:50:00 AM [facility]T [facility] Name Value Range Interpretation Code Description Data Stephanie rce(s) Supporting Document(s) Respiratory specimen severe acute respir atory syndrome coronavirus 2 (SARS-CoV-2) RNA Not Detected [facility] This lab was ordered by [facility] and reported by . ID Date Data Source [id number] 04/12/2021 05:08:00 AM EDT [facility] Name Value Range Interpretation Code Description Data Stephanie rce(s) Supporting Document(s) RP Internal Control Passed Normal (applies to non-nume frank results) [facility] Adenovirus None Detect Normal (applies to non-numeric resu lts) [facility] Coronavirus 229E None Detect Normal (applies to non-numeri c results) [facility] Coronavirus HKU1 None Detect Normal (applies to non-numeri c results) [facility] Coronavirus NL63 None Detect Normal (applies to non-numeri c results) [facility] Coronavirus OC43 None Detect Normal (applies to non-numeri c results) [facility] SARS-CoV-2 Not Detect Normal (applies to non-numeric resul ts) [facility] Negative results do not preclude SARS-Co V-2 infection and should not be used as the sole basis for treatment or other patient management decisions. Negative results must be combined with clinical observations, patient history, and epidemiological information. Testing was performed using the [employer] real-time nested multiplexed PCR Respiratory Panel 2.1 [...] Detect Normal (applies to non-n umeric results) [facility] Rhino/Enterovirus None Detect Normal (applies to non-numer ic results) [facility] Influenza A None Detect Normal (applies to non-numeric res ults) [facility] Influenza B None Detect Normal (applies to non-numeric res ults) [facility] Parainfluenza Virus 1 None Detect Normal (applies to non-n umeric results) [facility] Parainfluenza Virus 2 None Detect Normal (applies to non-n umeric results) [facility] Parainfluenza Virus 3 None Detect Normal (applies to non-n umeric results) [facility] Parainfluenza Virus 4 None Detect Normal (applies to non-n umeric results) [facility] Respiratory Syncytial Virus None Detect Norm al (applies to non-numeric results) [facility] Bordetella Parapertussis None Detect Normal (applies to non-numeric results) [facility] Bordetella Pertussis None Detect Normal (applies to non-nu meric results) [facility] Chlamydia Pneumoniae None Detect Normal (applies to non-nu meric results) [facility] Mycoplasma Pneumoniae None Detect Normal (applies to non-n umeric results) [facility] Methodology: Multiplexed PCR Refer ence Range: None detected ID Date Data Source [id number] 04/12/2021 04:42:00 AM EDT [facility] Collected By: Nurse Initials: cs Time Collected: 324 Collected By: Nurse Initials: cs Time Collected: 324 Name Value Range Interpretation Code Description Data Stephanie rce(s) Supporting Document(s) Color,Urine Colorl-Dk Y Normal (applies to non-numeric res ults) [facility] Clarity,Urine Clear [facility] [place] Specific [place],Urine 1.005-1.030 Normal (applies to non- numeric results) [facility] pH,Urine 5.0-8.0 Normal (applies to non-numeric resul ts) [facility] Protein,Urine Negative [facility] [place] Glucose,Urine Negative Normal (applies to non-numeric re sults) [facility] Ketones,Urine Negative [facility] [place] Blood,Urine Negative Normal (applies to non-numeric resu lts) [facility] Bilirubin,Urine Negative Normal (applies to non-numeric results) [facility] Urobilinogen,Urine 0.2-1.0 Normal (applies to non-numer ic results) [facility] Leukocyte Esterase,Urine Negative Normal (applies to non -numeric results) [facility] Nitrite,Urine Negative Normal (applies to non-numeric re sults) [facility] ID Date Data Source [id number] 04/12/2021 04:42:00 AM EDT [facility] Collected By: Nurse Initials: cs Time Collected: 324 Collected By: Nurse Initials: cs Time Collected: 324 Name Value Range Interpretation Code Description Data Stephanie rce(s) Supporting Document(s) RBC,Urine None Seen Normal (applies to non-numeric resul ts) [facility] WBC,Urine None Seen [facility] Casts,Urine None Seen Normal (applies to non-numeric resu lts) [facility] Squamous Cells,Urine None Seen [facility] Amorphous Sediment,Urine None Seen [facility] Bacteria,Urine None Seen [facility] ital ID Date Data Source [id number] 04/12/2021 04:32:00 AM EDT [facility] Name Value Range Interpretation Code Description Data Stephanie rce(s) Supporting Document(s) UDS Benzodiazepines Screen Negative Normal (applies to n on-numeric results) [facility] UDS Cocaine Screen Negative Normal (applies to non-numer ic results) [facility] UDS Ampetamine Screen Negative Normal (applies to non-nu meric results) [facility] UDS Cannabinoids Screen Negative Normal (applies to non- numeric results) [facility] UDS Opiates Screen Negative Normal (applies to non-numer ic results) [facility] UDS Barbiturates Screen Negative Normal (applies to non- numeric results) [facility] Threshold Levels Benzodiazepine 200 ng/mL Cocaine 300 ng/mL Amphetamines 1000 ng/mL Cannabinoids (THC) 50 ng/mL Opiates 300 ng/mL Barbiturates 200 ng/mL All positive findings are presumptive and unconfirmed. Confirmation of positive results are performed only at request of provider. Unconfirmed results must not be used for non-medical purposes (i.e. preemployment and legal purposes) ID Date Data Source [id number] 04/11/2021 01:49:00 PM EDT [address] DISCHARGE SUMMARYPATIENT NAME: YARELI HATCH MR#: [id number] PHYSICIAN: BOGDAN MACIAS MDAUTHOR: Colleen SMITH,Bogdan DATE: 04/09/21 #: [id number] DATE: 04/11/21HistoryIdentificationThis is a 14-wcetx-uln white female.Chief Complaint"I am having suicidal thoughts and anxiety."Reason for AdmissionPatient is well known to us. She presented to the ER with the complaint ofincreased suicidal ideations after an argument with her significant other. Shehas a history of suicidal ideations and multiple inpatient treatment. Patientcannot contract for safety. Hence, she was hospitalized.History of Presenting IllnessPatient was seen today along with the ad operations coordinator, Gloria, and a PAstudent from [facility]. She presented to the ER with [facility] due to patient contacting them stating [...] hasn't beensleeping for 3 weeks.Patient was at [facility] since and transferred to [facility] and discharged. She states that [facility] and has been trying to be admitted to several hospitalsthere. Stated she cannot contract for safety and thus requested an inpatienttreatment. She reported increased stress due to not feeling safe at her TLSresidence due to another resident, increased family conflict due to beingtransgender and ex being in penitentiary. She also reported that she was notfollowing the rule of TLS. She is not diligent with medications.Past Psych/Medical HistoryPsychiatric HistoryShe has long history of psychiatric problem including bipolar disorder, ADHD,anxiety, and depression with numerous hospitalizations. She has attemptedsuicide multiple times by overdose and by cutting herself. She was dischargedjust one day before her last hospitalization. [facility] [place]. She is on AOT since 01/09/21.Medical HistoryDenies [...] on treatment care were provided by Dr. Macias. Patientwas expressing that she was at times [...] she would prefer to bedischarged back to [facility] as she is no longer feeling suicidal. She expressed tomaintain her safety on the unit, she did not show any violent or aggressivebehavior and also talking about using her coping skill outside as we ll.Discussed with the patient about all available treatment options, patient wastashao offered to stay into inpatient mental health [...] She also [facility] that [facility] [...] 240Continue taking these medications:IBUPROFEN (IBUPROFEN) 400 MG PEPRSC492 MILLIGRAM Orally EVERY 6 HOURS NEEDED as needed for HeadacheQty = 21Loratadine* (Claritin*) 10 MG EDZPVL10 MILLIGRAM Orally DAILYDays = 30 Qty = 30PROPRANOLOL HCL (Inderal*) 10 MG TPCCUC91 MILLIGRAM Orally TWICE DAILYDays = 30 Qty = 60TOPIRAMATE (TOPAMAX) 25 MG NJGOSL39 MILLIGRAM Orally DAILYDays = 60 Qty = 30SERTRALINE (Zoloft*) 50 MG [id number] MILLIGRAM Orally DAILYDays = 30 Qty = 30MONTELUKAST SODIUM (MONTELUKAST) 10 MG ONUGWE78 MILLIGRAM Orally DAILYDays = 30 Qty = 30Aripiprazole* (Abilify*) 10 MG ZTPLFW91 MILLIGRAM Orally DAILYPRAZOSIN HCL (PRAZOSIN HCL) 2 MG CAPSULE2 MILLIGRAM Orally AT BEDTIMEOlanzapine* (Zyprexa*) 5 MG TABLET5 MILLIGRAM Orally AT BEDTIMEAripiprazole (Abilify Maintena) 400 MG SUSER.NUY243 MILLIGRAM Intramuscularly Y85DVic = 1Instructions:last im inj received 04/03/21Discharge Activity: As toleratedDischarge diet: RegularFollow-upFollow up with your Primary care physicianFollow up with therapiest and psychiatristrecommended outpt chemical dependencyReferralsOrdered ReferralsCOMMUNLA [place] [address] [phone]) on April 15 at9:[address] [place] [place] [address] [phone] on April 18 at2:00 pm with Grayson.DATE SIGNED: 04/11/21 Electronically Melania dTIME SIGNED: 1353 BOGDAN MACIAS MD Name Value Range Interpretation Code Description Data Stephanie rce(s) Supporting Document(s) ID Date Data Source [id number] 04/11/2021 09:25:00 AM EDT [address] [id number] NAME: YARELI HATCH Janette Jensen#: [id number] PHYSICIAN: HUBER VELAZQUEZ #: [id number] ADM. DATE: 04/09/21PATIENT : 00 DISCH. DATE: [50}DISCHARGE SUMMARYMHU discharge planNicotine Replacement TherapySmoking Status Current some day smokerPrescribed at discharge Rx offered, pt refusedAlcohol/Drug DisorderAlcohol or Drug Disorder counseling prescribedPersonal Care InstructionsDischarge Activity: As toleratedDischarge diet: RegularFollow Up CareFollow Up:Follow up with your Primary care physicianFollow up with therapiest and psychiatristrecommended outpt chemical dependencyPriority ItemsUrgent/Important items that need to be addressed at [facility] care follow-upappointmentDischarge InformationDISCHARGE INFORMATION* Thank you for choosing [facility] and allowing us toserve you* Our Goal is to provide the highest quality of care.* This discharge information is to help you better understand your diagnosisand medication* Avoid taking nppg-uic-amcptnb medicines unless approved by your physician.* Take your medications as prescribed. DO NOT stop any medications unlessapproved first* Weigh yourself daily. Report any gain of 5 lbs in a week* 24 Hour Crisis HOTLINE available: Call Reachout at [phone]* Chem. Dependency: Walk in Clinics [place] ([phone]) and [place] ([phone]) anytime Wednesday thru Wednesday 8 to 10am. [place] ([phone]) anytimeMond thru Wednesday 8 to 10am. [place] ([phone]) Wednesday or Wednesday from 8to 10am (Bring $30 to [facility]) SMOKIN G CESSATION* Smoking is dangerous to your health. It delays the healing process, andworks against your medications. Not smoking will improve your health* Our hospital participates with the Opt-to-Quit program. You will be contactedafter discharge by the [facility] Smoker's Quitline for support with tobaccocessation. You have the option once contacted to refuse this service.* You can also go online to www.Apprion. Free nicotine replacementsare available Attention* You should [...] completed NoEND ENDDICT: 04/11/21924 Electronically SignedTRANS:04/11/21924 BOGDAN MACIAS MDTRANS BY:DATE SIGNED:04/11/21TIME SIGNED: 925REPORT COPY TO: Name Value Range Interpretation Code Description Data Stephanie rce(s) Supporting Document(s) ID Date Data Source [id number] 04/10/2021 01:59:00 PM EDT [facility] [place] [id number] HEALTH PROGRESS NOTEPATIENT NAME: YARELI HATCH PHYSICIAN: BOGDAN MACIAS MDAUTHOR: Colleen SMITH,DawsonvAPUJA. DATE: 04/09/21 MR#: [id number] NOTE DATE: 04/10/21 RM#: [id number] TIME: 1402 is a 59-sywge-kap white female.CC/Hx Present Illness"I am having suicidal thoughts and anxiety."Events Since Last EntryPatient reported that she has been feeling better, she stated that she wouldlike to go back to [facility], she stated that she was dealing [...] SIGNED: 04/10/21 Electronically SignedTIME SIGNED: 1401 BOGDAN MACIAS MD Name Value Range Interpretation Code Description Data Stephanie rce(s) Supporting Document(s) ID Date Data Source [id number] 04/10/2021 07:18:00 AM EDT [address] HEALTH HISTORY AND PHYSICALPATIENT NAME: YARELI HATCH MR#: [id number] PHYSICIAN: BOGDAN MACIAS MDAUTHOR: Evi SMITH,S. DATE: 04/09/21 #: 3RDHistoryChief [...] Home Medication ListAllergiesCoded Allergies:risperidone (08/04/19)ExamVital SignsVital Signs-24 HRS09/849211Zaib 98.8Pulse 80Resp 18B/P 122/65B/P MeanPulse Ox 99O2 DeliveryO2 Flow RsngWbN7Ifcmjmhsqf/PlanDiagnosis/Problem1. Major depressive disorderStatus Chronic2. Suicide attemptStatus Acute3. Bipolar affective disorderStatus Chronic4. Bipolar disorder5. Borderline personality disorderStatus Chronic6. Obesity, morbidStatus ChronicDATE SIGNED: 04/10/21 Deann garcia SignedTIME SIGNED: 07 DORI KENNEDY MD Name Value Range Interpretation Code Description Data Stephanie rce(s) Supporting Document(s) ID Date Data Source [id number] 04/09/2021 04:05:00 PM EDT [address] PSYCHIATRIC ASSESSMENTPATIENT NAME: YARELI HATCH MR#: [id number] PHYSICIAN: BOGDAN MACIAS MDAUTHOR: Surendra SMITH,P. DATE: 04/09/21 RM#: [id number]his is a 58-svmcr-vqu white female.Chief Complaint"I am having suicidal thoughts and anxiety."Reason for AdmissionPatient is well known to us. She presented to the ER with the complaint ofincreased suicidal ideations after an argument with her significant other. Shehas a history of suicidal ideations and multiple inpatient treatment. Patientcannot contract for safety. Hence, she was hospitalized.History of Presenting IllnessPatient was seen today along with the ad operations coordinator, Gloria, and a PAstudent from [facility]. She presented to the ER with [facility] due to patient contacting them stating [...] hasn't beensleeping for 3 weeks.Patient was at [facility] since and transferred to [facility] and discharged. She states that she [facility] and has been trying to be admitted to several hospitalsthere. Stated she cannot contract for safety and thus requested an inpatienttreatment. She reported increased stress due to not feeling safe at her TLSresidence due to another resident, increased family conflict due to beingtransgender and ex being in penitentiary. She also reported that she was notfollowing the rule of TLS. She is not diligent with medications.Portions of this section were scribed by Shell Ariza on 04/09/21 at 1638Past Psych/Medical HistoryPsychiatric HistoryShe has long history of psychiatric problem including bipolar disorder, ADHD,anxiety, and depression with numerous hospitalizations. She has attemptedsuicide multiple times by overdose and by cutting herself. She was dischargedjust one day before her last hospitalization. [facility] [place]. She is on AOT since 01/09/21.Medical HistoryDenies [...] rce(s) Supporting Document(s) ID Date Data Source [id number] 04/09/2021 07:55:00 AM EDT [facility] Name Value Range Interpretation Code Description Data Stephanie rce(s) Supporting Document(s) LCOVID-19, CORDELL NEGATIVE [place]OH This lab was ordered by [facility] and reported by [facility]. ID Date Data Source [id number] 04/09/2021 08:19:00 AM EDT [facility] Name Value Range Interpretation Code Description Data Stephanie rce(s) Supporting Document(s) COVID-19, CORDELL NEGATIVE NEGATIVE N [facility] Methodology: Isothermal Nucleic Acid Amp lification [...] Emergency Use Authorization. ID Date Data Source [id number] 04/08/2021 11:32:00 PM EDT [facility] Name Value Range Interpretation Code Description Data Stephanie rce(s) Supporting Document(s) SALICYLATE < 1.7 mg/dL 0.0-20.0 [facility] ID Date Data Source [id number] 04/08/2021 11:32:00 PM EDT [facility] Name Value Range Interpretation Code Description Data Stephanie rce(s) Supporting Document(s) ACETAMINOPHEN < 2.0 ug/mL 0-30 [facility] ID Date Data Source [id number] 04/08/2021 11:32:00 PM EDT [facility] Name Value Range Interpretation Code Description Data Stephanie rce(s) Supporting Document(s) ETOH 0.004 g/dL NONE DETECTED [facility] ID Date Data Source [id number] 04/08/2021 11:32:00 PM EDT [facility] Name Value Range Interpretation Code Description Data Stephanie rce(s) Supporting Document(s) GLU 100 mg/dL 70-110 [facility] Patients taking Sulfasalazine may have f alsely depressedGlucose levels. Patients taking Sulfapyridine may havefalsely elevated Glucose levels. Patients should be drawnfor Glucose before the initial administration of eitherdrug. BUN 12 mg/dL 7-23 [facility] CRE 0.644 mg/dL 0.500-1.300 [facility] GFR > 60 mL/min [facility] CHLORIDE 111 mmol/L 99-110 [facility] NA 142 mmol/L 136-147 [facility] POTASSIUM 3.9 mmol/L 3.5-5.1 [facility] TCO2 28 mmol/L 20-33 [facility] ANION GAP 6.9 10.0-20.0 [facility] CA 8.4 mg/dL 8.3-10.7 [facility] ALKALINE PHOS 124 U/L 45-117 [facility] TP 7.4 g/dL 6.0-7.8 [facility] ALB 3.5 g/dL 3.5-5.0 [facility] ESRD Dialysis patient Albumin reference range: 2.9-4.4 g/dL GL 3.9 g/dL 2.3-3.5 [facility] A/G 0.9 1.0-2.5 [facility] T. BILIRUBIN 0.2 mg/dL 0.1-1.1 [facility] The Dimension [place] Total Bilirubin is n ot recommended forpatients undergoing treatment with eltrombopag (Promacta)due to the potential for falsely elevated results. ALTI 55 U/L 6-54 [facility] Patients taking Sulfasalazine and/or Sul fapyridine may havefalsely depressed ALT levels. Patients should be drawn forALT before the initial administration of either drug. AST 31 U/L 6-38 [facility] Patients taking Sulfasalazine and/or Sul fapyridine may havefalsely depressed AST levels. Patients should be drawn forAST before the initial administration of either drug. ID Date Data Source [id number] 04/08/2021 11:05:00 PM EDT [facility] Name Value Range Interpretation Code Description Data Stephanie rce(s) Supporting Document(s) WBC 8.86 x10E3/uL 4.0-10.5 [facility] RBC 4.27 x10E6/uL 4.20-5.40 [facility] Hemoglobin 12.5 g/dL 12.0-16.0 [facility] Hematocrit 38.3 % 37.0-47.0 [facility] MCV 89.7 fL 81.0-99.0 [facility] MCH 29.3 pg 27.0-31.0 [facility] MCHC 32.6 g/dL 32.7-35.6 [facility] RDW 12.1 % 11.5-14.0 [facility] Platelet count 266 x10E3/uL 150-450 [facility] ital MPV 9.6 fl 6.9-9.5 [facility] Neutrophils 57.4 % 34-64 [facility] Lymphocytes 32.3 % 25-45 [facility] Monocytes 7.8 % 1.7-10.6 [facility] Eosinophils 1.7 % 0.4-7.0 [facility] Basophils 0.3 % 0.1-2.0 [facility] Imm. Gran. 0.5 % 0.1-2.0 [facility] Abs. Neutro. 5.09 x10E3/uL 1.2-7.6 [facility] Abs. Lymph. 2.86 x10E3/uL 1.0-3.5 [facility] Abs. Kerr. 0.69 x10E3/uL 0.1-1.0 N [facility] l Abs. Eosin. 0.15 x10E3/uL 0.1-0.7 [facility] al Abs. Baso. 0.03 x10E3/uL 0.0-0.1 [facility] l Abs. Imm. Gran. 0.04 x10E3/uL 0.0-0.1 [facility] spital ANRBC% 0 % 0 [facility] ID Date Data Source [id number] 04/08/2021 11:56:00 PM EDT [facility] Name Value Range Interpretation Code Description Data Stephanie rce(s) Supporting Document(s) PCP VISTA NEG NEGATIVE [facility] MINIMUM LEVEL OF DETECTION IS 25 ng/ml BENZODIAZEPINES NEG NEGATIVE [facility] al MINIMUM LEVEL OF DETECTION IS 200 ng/ml COCAINE VISTA NEG NEGATIVE [facility] MINIMUM LEVEL OF DETECTION IS 300 ng/ml AMPHETAMINES NEG NEGATIVE [facility] al MINIMUM LEVEL OF DETECTION IS 1000 ng/ml BARBITURATES NEG NEGATIVE [facility] al CUTOFF CONCENTRATION IS 200 ng/ml CANNABINOIDS NEG NEGATIVE [facility] al CUTOFF CONCENTRATION IS 50 ng/ml METHADONE VISTA NEG NEGATIVE [facility] al MINIMUM LEVEL OF DETECTION IS 300 ng/ml OPIATE VISTA NEG NEGATIVE [facility] MINIMUM DETECTION LEVEL IS 300 ng/ml ID Date Data Source [id number] 04/08/2021 11:30:00 PM EDT [facility] Name Value Range Interpretation Code Description Data Stephanie rce(s) Supporting Document(s) URINE COLOR Yellow [facility] UAPR Turbid [facility] UGLU Negative NEGATIVE [facility] URINE BILIRUBIN [facility]IVE [facility] UKET Negative NEGATIVE [facility] USG 1.021 1.010-1.025 [facility] UBLO Negative NEGATIVE [facility] UpH 8.5 5.0-8.0 [facility] UPRO Trace Negative [facility] UUB 1.0 mg/dL 0.2-1.0 [facility] UNIT Negative Negative [facility] ULEU Trace Negative [facility] ID Date Data Source [id number] 04/08/2021 11:30:00 PM EDT [facility] Name Value Range Interpretation Code Description Data Stephanie rce(s) Supporting Document(s) URINE RBC 0-2 RBCs/HPF NONE SEEN [facility] URINE WBC 3-5 WBCs/HPF NONE SEEN [facility] URINE BACTERIA Few NONE SEEN [facility] URINE EPI. Many NONE SEEN [facility] URINE CRYSTAL MANY AMORPHOUS NONE SEEN [facility] pital ID Date Data Source [id number] 04/08/2021 11:30:00 PM EDT [facility] Name Value Range Interpretation Code Description Data Stephanie rce(s) Supporting Document(s) HCG QUAL URINE Negative Negative [facility] l ID Date Data Source [id number] 04/09/2021 04:09:00 PM EDT [facility] Physician DocumentationClaxton-Tracy City [facility] edical CenterName: Yareli DuvallAge: 20 yrsSex: FemaleDOB: 2000MRN: [id number] Date: 04/08/2021Time: 22:26Account#: [id number] MD: NONE, - Per PatientED Physician Zhao Rajan Summary:04/09/21 12:49Hospitalization OrderedHospitalization Status: Inpatient Elchddrtjkv8Edkekcee: Aliza Oneillf2Location: Mental Health Yivrhu6Epccpbtct: Qetyqwac8Ahikedk: an acute krbozdpozyevnf1Xzmeedld: are vujfawhyyed8Obcs Assignment:sk9Dzyovnwwu- Major depressive disorder, recurrent, weefgtmdhykiv8Mfhhkymqqg Information- Admission Type: Inpatient Status.gl3Dcrwh:- Medication Reconciliationrf2- SBARrf2- Medication Reconciliation Form - 2nd Copyrf2- Psych. ELDDyn4QAH:03/2906:59 This 20 yrs old White Female presents to ER via Police with complaints ofPsych Problem.br07:19 20-year-old female with extensive psychiatric history of bipolar ADHDanxiety brdepression presents complaints of increasing suicidal ideation after argumentwithsignificant other. Patient states that she has plan to harm herself by hanging.In EDpatient seemed to be comfortable and cooperative.LEGAL LIBRARIAN:03/2822:31 LMP 02/20213136uy9Swukmvozvm:- Allergies: Haldol; Risperdal;- Home Meds:1. prazosin 2 mg Oral capsule 1 cap every day at bedtime2. Zyprexa 5 mg Oral tablet 1 tab nightly3. montelukast 10 mg oral tablet 1 tab daily4. topiramate 75mg oral tablet daily5. aripiprazole 10 mg oral tablet 1 tab daily6. aripiprazole 400 mg intramuscular suspension,extended release syringe 400 owfgsxz16 days7. sertraline 50 mg oral tablet 1 [...] Temp 97.3; Pulse Ox 98% on R/A; Qcjogh544.33 kg (R); zm3Pgeybx 5 ft. 6 in. ; Pain 0/10;03/2908:38 BP 123 / 77; Pulse 66; Resp 18; Temp 97(TE); Pulse Ox 98% on R/A;sw215:20 BP 126 / 70 (auto/); Pulse 70 MON; Pul se Ox 97% ;ef/2821:31 Body Mass Index 37.12 (104.33 kg, 167.64 cm)kk309/2821:31 Pain Scale: Qytbktm5IIH:03/2822:45 Patient medically screened.br03/2906:53 Transition of care: Care assumed from Zeeshan Grover MD.rf206:54 Data reviewed: vital signs, nurses notes, lab test result(s), CBC, druglevel(s), ov8gnycxnrcuecnh, alcohol, salicylate, electrolytes, hepatic panel, urinalysis,urine drugscreen. ED course: Patient is medically cleared and pending PSA evaluation.03/2822:38 Order name: Acetaminophen Level; Complete Time: 06::38 Order name: CBC with diff; Complete Time: 06:2821:38 Order name: CMP; Complete Time: 06::38 Order name: COVID-19 PROFILE+LAB; Complete Time: 08::38 Order name: ETOH; Complete Time: ::38 Order name: Glucose; Complete Time: ::53 Interpretation: Within normal limits.rf:38 Order name: Salicylate Level; Complete Time: 06::38 Order name: Triage - Drug Screen; Complete Time: 06::38 Order name: UA; Complete Time: 06::38 Order name: Urine HCG Qualitative; Complete Time: ::38 Order name: Diet - Mental Health Tray (call dietary); Complete Time:00::38 Order name: Belongings List; Complete Time: 15::38 Order name: Document Weight and Height for BMI; Complete Time: 00::38 Order name: Mental Health Evaluation; Complete Time: 06::38 Order name: Mental Health Level 3; Complete Time: 00::38 Order name: VS q shift; Complete Time: 00::54 Order name: Medically Cleared for Eval by-Psychosocial, Cd Mixer Helper (.PSA);Complete Time: rf213:27Dispensed Medications:08:37 Drug: sertraline 50 mg [sertraline 50 mg tablet (1 tabs)] Route: PO;sw215:21 Follow up: Response: No adverse uifrcywrmy440:37 Drug: Topiramate 75 mg [topiramate 25 mg tablet (3 tabs)] Route: PO;: Follow up: Response: No adverse oehveyyjid626:38 Drug: ARIPiprazole 10 mg [aripiprazole 10 mg tablet (1 tabs)] Route: PO;: Follow up: Response: No adverse ryvsjnmoym513:38 Drug: Loratadine 10 mg [loratadine 10 mg tablet (1 tabs)] Route: PO; Follow up: Response: No adverse ozhfaxkidb535:38 Drug: Montelukast 10 mg Route: PO; Follow up: Response: No adverse xitndtntjx862:38 Drug: Propranolol 10 mg [propranolol 10 mg tablet (1 tabs)] Route: PO; Follow up: Response: No adverse roman hsnzrwb5Utnwuomndk:Dispatcher [employer] Fortunato Burrell RN RN tr5Wdiivsk, MD MD García Byers Krista, RN RN lk5Vltb, JOSE LUIS Baker RN kr5LtddaSantiago betts MD MD tm6Yfqdenuo, Ami AMAYA no7Gebgrwkujqh: (The following items were deleted from the chart)01:16 04/08 22:33 Home Meds: Lexapro 10 mg Oral tablet 1 tab nightly; kk3kk3 Name Value Range Interpretation Code Description Data Stephanie rce(s) Supporting Document(s) ID Date Data Source [id number] 04/09/2021 04:09:00 PM EDT [facility]Cla[facility] terName: Yareli DuvallAge: 20 yrsSex: FemaleDOB: 2000MRN: [id number] Date: 04/08/2021Time: 22:26Account#: [id number] Jitendra SMITH: NONE, - Per PatientDiagnosis: Major depressive disorder, recurrent, unspecifiedPresentation:03/2822:28 Presenting complaint: Patient states: "I am having suicidal thoughts andanxiety.". uc7Cniqtbcjcsn Screening: Have you been diagnosed with COVID-19 in the past 30days? noAre you currently on quarantine by Public Health? no Flu-like symptoms reportedin thelast 14 days: no. Have you had close contact with confirmed or suspectedCOVID-19 case?no Do you live in a setting where a large of amount of people live, such [facility], family care, nursing home, etc? no. Have you traveled to a location withsandstone critical access hospitalspread orongoing COVID-19 community spread or outside of [facility]? no Have you traveledinternationally or had contact with someone that has traveled and has been illin thepast 3 weeks? no Have you received the COVID vaccine? Yes. Communication SpeaksEnglish? Yes, is preferred language. Language Line Services needed? No Are TDDneeded?No. Best learning method: discussion. Learning barriers: none identified.22:28 Acuity: Triage 8go107:28 Method Of Arrival: Hqamreav114:29 Presenting complaint: Badge #[id number] from [facility] states patient madesuicidal lk4godjjmumla and called police to be brought in.22:30 Acuity Assignment: Triage 1uj602:50 International Travel Fever No. Communicable Disease Screen: Negative forfever>/= 100 av0vkoegvf Fahrenheit. Communicable disease screen is negative. (-) rash orunusual skinlesion (-) travel/contact with traveler (-) respiratory symptoms.Triage Assessment:22:34 General: Appears in no apparent distress, well nourished, well groomed,Behavior is gb8victofm, appropriate for age, cooperative, Denies fever, chills. [...] urinary frequency, urgency.Musculoskeletal: Circulation, motion, and sensation intact.LEGAL LIBRARIAN:22:31 LMP 02/20211109zi0Czfexhwkzb:- Allergies: Haldol; Risperdal;- Home Meds:1. prazosin 2 mg Oral capsule 1 cap every day at bedtime2. Zyprexa 5 mg Oral tablet 1 tab nightly3. montelukast 10 mg oral tablet 1 tab daily4. topiramate 75mg oral tablet daily5. aripiprazole 10 mg oral tablet 1 tab daily6. aripiprazole 400 mg intramuscular suspension,extended release syringe 400 mbxflip94 days7. sertraline 50 mg oral tablet 1 [...] threats or abuse. Denies injuries from another.Nutritional kb7wscdibtqe: No deficits noted. Offer of HIV testing: patient was previouslyofferedscreening. Fall Risk None identified.Assessment:03/2822:37 Reassessment: see triage assessment by this creative services writer.kk323:59 Reassessment: Patient appears in no apparent distress at this time.jw509/2900:52 Reassessment: Patient appears in no apparent distress at this time.kk302:19 Reassessment: No changes from previously documented assessment.jw503:49 Reassessment: No changes from previously documented assessment.jw505:06 Reassessment: No changes from previously documented assessment.jw506:34 Reassessment: No changes from previously documented assessment.jw508:29 Reassessment: Patient appears in no apparent distress at this time. Nochanges from pj6rfwnpyrkas documented assessment. Sitter at bedside. .09:59 Reassessment: Patient appears in no apparent distress at this time. Nochanges from bz0gigfomcohh documented assessment. Patient sleeping in bed. Sitter at bedside. .10:57 Reassessment: Patient appears in no apparent distress at this time. Nochanges from be9loevhhnhay documented assessment. Patient sleeping. Sitter at bedside. .Psychosocial:04:52 Narrative PSA spoke to Dulce at [facility] ([phone]) who states that thepatient was qz0ujcr all day. She states that she was [...] Completed. Interventi on: Observation Level 3.Referral Information: sb5Comjtxbbes referral is generated by a police agency: [employer]. The patient wasreferred forevaluation because patient had voiced suicidal ideations.05:09 Subjective: The patients chief complaint is Pt presents to the ED by [employer].Patient sf1cbwbjvh feeling suicidal for "a while" now and [...] history of anxiety, Bipolar Disorder, Depression, self-mutilation, ls8Cllcn: [employer]. Mental Health Admissions: several. pt was [facility] at [facility] 04/01/21 anddischarged 04/03 Current Outpatient Mental Health Services[facility] [place] Living Environment: Family / Home Support: poorThepatient currently lives in a [facility] residence. The patient is single. Detox /RehabAdmissions: None. Current Outpt Alcohol or Substance Abuse Services: None.05:16 Patient presents to Emergency Department with the following symptomswithin the past 2 bq3somjj: suicidal ideation with plan for jump in [...] patient status is not currently needed orappropriate. rj7Dkgzfkgxabxf: Psych MD informed of patient's status at 06:00, ED MD notified ofpatients status at 06:34. Disposition: Medically cleared for disposition by [facility].Psychiatric Consult is performed by phone with Dr David STEVENS. DSM-V DX [place] Idiagnosis:Depression, Unspecified. Insurance Pre-Certification: Not Required. IMHUAdmissionCriteria: [...] dosageadjustments. Awaiting. The patient is not a family service center director or militarydependent.Mayes Suicide Severity Rating Scale: Suicidal Ideation Rating 5; IntensityofIdeations Rating 25; Suicidal Behavior Rating 0.Psych:00:00 Subjective: Patient's mood is elevated, Delusions are denied,Hallucinations are denied sv1Cprzkf thoughts of suicide. Denies suicidal plan. Objective: [...] Temp 97.3; Pulse Ox 98% on R/A; Djvhms047.33 kg (R); of7[place] 5 ft. 6 in. ; Pain 0/10;03/2908:38 BP 123 / 77; Pulse 66; Resp 18; Temp 97(TE); Pulse Ox 98% on R/A;sw215:20 BP 126 / 70 (auto/); Pulse 70 MON; Pulse Ox 97% ;ef109/2822:31 Body Mass Index 37.12 (104.33 kg, 167.64 cm)kk309/2822:31 Pain Scale: Ogwbxiy7UO Course:03/2822:27 Patient arrived in ED.kk322:27 NONE, - [...] Physician role handed off by Zeeshan Grover MDrf206:50 Santiago Rajan MD is Attending Physician.rf206:59 Attending Physician role handed off by Santiago Rajan MDbr06:59 Zeeshan Grover MD is Attending Physician.br07:22 Attending Physician role handed off by Zeeshan Grover, XPmn543:22 Santiago Rajan MD is Attending Physician.rf212:48 Brooklyn Oneill MD is Hospitalizing Provider.rf214:54 Primary Nurse role handed off by Fortunato Mark RNWHsv9Dpkcikgpeush Medications:08:37 Drug: sertraline 50 mg [sertraline 50 mg tablet (1 tabs)] Route: PO;sw215:21 Follow up: Response: No adverse :37 Drug: Topiramate 75 mg [topiramate 25 mg tablet (3 tabs)] Route: PO;sw215:21 Follow up: Response: No adverse dwdeogbriv339:38 Drug: ARIPiprazole 10 mg [aripiprazole 10 mg tablet (1 tabs)] Route: PO;sw215:22 Follow up: Response: No adverse dxymvfhgya840:38 Drug: Loratadine 10 mg [loratadine 10 mg tablet (1 tabs)] Route: PO;sw215:21 Follow up: Response: No adverse mkwgqsqidb522:38 Drug: Montelukast 10 mg Route: PO;5:21 Follow up: Response: No adverse xsdfwqdtgi938:38 Drug: Propranolol 10 mg [propranolol 10 mg tablet (1 tabs)] Route: PO;:21 Follow up: Response: No adverse xugmgmdhky3Nchcnbr:12:49 Decision to Hospitalize by Provider.rf215:22 Disposition: Admitted to Psych accompanied by nurse, with chart.ef115:22 Condition: stable, Provider notified of abnormal vital signs.15:22 Discharge instructions given to patient, Instructed on need for admit,Demonstratedunderstanding of instructions.15:22 Discharge Assessment: Patient verbalized understanding of dispositioninstructions.Patient able16:09 Patient left the ED.le5Aejaocpdom:Fortunato Mark, RN RN io2DcakixcsAmi arthur RN JOSE LUIS oz8NtcraxfldAgatha chapa RN JOSE LUIS rw1TsnbdreZeeshan Grover MD MD brKelly, Krista, RN RN dl0XggiqjfaUsha apple8WeOlivia jurado RN RN bk7RbcalSantiago betts MD MD hh8Klmhyjvbkow: (The following items were deleted from the chart)01:16 04/08 22:33 Home Meds: Lexapro 10 mg Oral tablet 1 tab nightly; sn3me159/2905:17 05:14 Patient reports history of anxiety, Bipolar Disorder, Depression,self sm8-mutilation, Other: [employer]. Mental Health Admissions: several. pt was last at [facility]/01/21and discharged 04/03 Current Outpatient Mental Health Services: Psychiatrist /Agency:[facility]. Living Environment: Family / Home Support: poor [facility]. The patient is single. Detox / Rehab Admissions: None. CurrentOutptAlcohol or Substance Abuse S ervices: None. sm8 Name Value Range Interpretation Code Description Data Stephanie rce(s) Supporting Document(s) ID Date Data Source [id number] 04/08/2021 08:32:18 AM EDT [facility] Name Value Range Interpretation Code Description Data Stephanie rce(s) Supporting Document(s) ED Provider Note [facility] YLLKIb3uXvLHYnVe70/JOGdvFVIko6KbTHjrGKs5LFkjLUTpB4RdUXE1eP9yRKJ1HLxMOhFtYgCnSYS8 lbm [file] == ID Date Data Source [id number] 04/08/2021 08:24:44 AM EDT [facility] Name Value Range Interpretation Code Description Data [facility](s) Supporting Document(s) Discharge Summary [facility] HVCRYq0sUyIHObEm19/LONplGXFvk1OaWSsqJDz3WXvsDZPbW8PePGG5xE4zDCI0RKeCHxCuVjJdFMG9 lbm [file] AgICAgICAgICAgICAgICAgICAgICAgICAgICAgICAgICAgICAgICAgICAgICAgICAgICAgICAgICAgIC AgICAgICAgICAgICAgICAgICAgICAgICAgICAgDQogICAgICAgICAgICAgICAgICAgICAgICAgICAgIC AgICAgICAgICAgICAgICAgICAgICAgICAgICAgICAg ICAgICAgICAgICAgICAgICAgICAgICAgICAgICAgICAgICAgICAgDQogICAgICAgICAgICAgICAgICAg ICAgICAgICAgICAgICAgICAgICAgICAgICAgICAgICAgICAgICAgICAgICAgICAgICAgICAgICAgICAg ICAgICAgICAgICAgICAgICAgICAgDQogICAgICAgIC AgICAgICAgICAgICAgICAgICAgICAgICAgICAgICAgICAgICAgICAgICAgICAgICAgICAgICAgICAgIC AgICAgICAgICAgICAgICAgICAgICAgICAgICAgICAgDQogICAgICAgICAgICAgICAgICAgICAgICAgIC AgICAgICAgICAgICAgICAgICAgICAgICAgICAgICAg ICAgICAgICAgICAgICAgICAgICAgICAgICAgICAgICAgICAgICAgICAgDQogICAgICAgICAgICAgICAg ICAgICAgICAgICAgICAgICAgICAgICAgICAgICAgICAgICAgICAgICAgICAgICAgICAgICAgICAgICAg ICAgICAgICAgICAgICAgICAgICAgICAgDQogICAgIC AgICAgICAgICAgICAgICAgICAgICAgICAgICAgICAgICAgICAgICAgICAgICAgICAgICAgICAgICAgIC AgICAgICAgICAgICAgICAgICAgICAgICAgICAgICAgICAgDQogICAgICAgICAgICAgICAgICAgICAgIC AgICAgICAgICAgICAgICAgICAgICAgICAgICAgICAg ICAgICAgICAgICAgICAgICAgICAgICAgICAgICAgICAgICAgICAgICAgICAgDQogICAgICAgICAgICAg ICAgICAgICAgICAgICAgICAgICAgICAgICAgICAgICAgICAgICAgICAgICAgICAgICAgICAgICAgICAg ICAgICAgICAgICAgICAgICAgICAgICAgICAgDQogIC AgICAgICAgICAgICAgICAgICAgICAgICAgICAgICAgICAgICAgICAgICAgICAgICAgICAgICAgICAgIC XxQNNzLSMdYXGeACDrGCFyUXEvFMOpANUuQJAnSGImPVLyLIQkTAg3O2boPINhILFcYD3eGPa6Ta0+DQ nPKdSwSEP5wtWbfT4QQY0ef2RcYNseSGFlb4ErQSo6 LR8RWIItFDwjYF4CTXsjem9STNTqGBLeuRGKc9yfFfDiOOO9ECMkIlvrEM0HEIKkU2qmvjQiFMVpWCAE LSdoHBVXNGmyJSGKIICfLFXvLgLbQeMcXLTkULQcWCBYMDN0NKZiRjEqZILvTGApHvMiLKDJNSDtKZNe JtPlBMBjOMMfJstjACBGRCJ7PZBnKmXkYSKhJTTxHG 0HUROiG928gjXdFYMCAw7+CQcvxzOvLtpSYiYqGOObs7HrYGu9BF4NORSyBzjlr7SvSfLrZLYHIOssEZ 5PGQC0RLLeFTIyYc4LZUUkC590qoMdSR1JLw9URvRzSV4kxo9VHwRcAWPiUmiRXjw7YBpuSH2JeFDtCA zFjAZleQYsY8VhC1BqqSWwuXMxzEIHES1vlyHNOK0k S71cWNDIJUHwuJS4DlK1LyMkBgEbLSF3EbYbXU1gWLcoTB1NTKB2HQczSHRgOIVyO2sPZvMhSNEsTHAr pFupRK8ZBkMmK1ApwwLsiPI7NqCrKUCMKs0+XFehjxEjGobQIaM7FIWda9InSAd8FE0ZRTEqQFivCH4W LWJzvJ8mRPnvKX3JIdM2ZNKmNFIRDqKfD68swAZjZC n3R8EpTfYnCRBhJabwMUIzDRhcPlMyUKYfRnQvTDdxTE7+ID4+DUonJR9CQMptkaOmBQEzTy0YFNHmVF PzPW5kEAMfWCBtJ0W4pXsvLBPPLtBmT9gmclrzLI0uPEIaA021bKctqyAdZOWaTWXrMg4IVKLuAAB2EC EyrNXtKwGxIQJUXIkbYU8IfCQiHCD6nL9bBOasMDGo NVUtB4rNDsFysWaiVJ20oJrrdhLuvQQvHJl+Ii4YRA4ex1ZnWRg9mkYfHSmnTVI6AOsaNCFeFAJgNKRd ZWR9UWV5YSAGDhKgRDNaQUMnOIlaQKJzWJVaqj4HHQXvVLZ2GWcgRREbUBWjZJIuRNrzSSQmNAneOeQa VXQoDLMuKO8EZxRqYQLwBVBuUMzxLDNhKSZseb5JWO YwTOGqOQVmLxEtXEHhUGCaQHuzLMZwHQX3CJSqFKQcTZUmZO4HLgChYAUhAMe0BAWiKONiNPErvq4IFE JkXQLdRpglOFAgNMLiOKYqILjaLNIvFLYfURO5JVDoHQFpSH3HSeGdGQNqPKRnITAtOBOoRPSlaf1YCZ WsLBLeGdQ9LsDsMWDkYNBlUKyyOUDcPTBkINb5OCHb IMFsCF0XAbGiTXPqFBC9KcKzTUEyNGYuci5OZAQzWZVrEvWxPtGaDLJwMZFrMKzcMZXxUQV7MvY8FENg ZCRpCX8NOiVrNWRrGDv6JpEiBAThXEYnvp0RNPGtDCStEPL2IGCxWYShTFOnDNrhQOFqBUCrILK1HGQf OOIbRX5VVuVsYOUdDqEiFVJzHTNdNJZwez5OYIPwPU HbOER2MsRmWUExPZXlSSdeFMVtKQO0MhG6ZTKvWRNjDK9WBvDzOVHnUwk9WXTqKBXyXVPlxw2DIKJvFO OmUhRgOoOgXRYaCQSiQWcwMZPqNTEhRnZ8KRBuEUSxDE0RRyBxAMLfMoN0IqHxNJFyUAIfnx7UALTjIQ LoYzN2ZmVtNQXoJXPvPOqdHDZvMOUyFsJvFAWeRZQs YX3JOgIaWGFbBQP0DeesMWKmCYSzyd7QLUQiPDC2XwE4CbMfNEYnEYUbJTmeUQMdGSEiNjC6JZVlTADv AE9MHzRpMPFjBTH9OQtiZZYmBVNict5SOZIuASV9KIZ2OEMgCNAwBTTsDDccTLRhCNK0TmR7WLHvJUGj UE7QMqRyRIDkFXT5DMHjEBAwTNSzad3KYQKoLWI3VE r9GNOvBMPkGHVyTIbqIUTsYLV1MMViJXQuOZObTO3HNxKfFBXyPKjcEZMsEWFsEDVnax5BRFRyWDN1Hs X4VqCwVNBvHBQkTXvuRVXdTPS9UqNoSNViCDJlBZ6VHlXmGTOiFPn4VVSgNIJlNMWcbr6VQQGnIGU0JW L8DbNtFSZhKIBoUCpmWFSjORW4PfMaJNHhDLFoOU4D BwUkFNKuWJx0XElgXRHlLNNvhp4MIGAcQBZ2NTXhGcPpCNRxTNUwYGajZOAmWQRpMIzfOMYpUDDeEE9Y UaZdTXLuQVYrPLOwFUGjAQVslh7XLQDhIJH5NBI7KzLfVYBbFCXrMMsrOREtQVIyOiC8ZFPuHVTeNI1U UqJhJDQnJPS7LRJrVHWdRIYppj4KLFGuFQP5Wij8AJ XwUUPpXQZsGOxiVMKvLTG6SVs7IHFyWZUdER1KStPfVPXmYbS4PKJqEHHsKGCtrm3SLXFiTIC5CAtgEM QdLZVuPJGpGRprYDHaZSE7LJebYNVvBETiOJ7AYbBmDVMkQbTqYPXoZNBgDVWkhp8SYZBhZDG7BHe9Vi RwYGWaJDVsHJwoGPCxFMaiIkglUJDhCGWaND9EPjDi KKCcCpQ0OWRiFTPmASYnxx5HJJSvAHP4NBz2PbHvFEBpPNStYPurMMSpLFfnCXm5RHVeNVJsBS3JIzAe AUCeKfUhBqDzNEWwTTQeyu5ETKTqNCV3Ial8ERSrDSFyGUHfVOsoPJQpJRzvVSQ8VPNzDGSxQP3OTtLj GOChDtKcZwEvMKViLJNwes4DfXIedMpvfx5TSAlNNv 8MqPteZBL8WIkdJl8bjRO4RNCoRENYRw8UrwHcPYHzUGWNBFliXXDiRAPbTzU0UfAxJPPgVxGlSmh6YT R2RKK3FJdmARv5FPbsOnW7NEHiNhfyYjP5WXRmZCXdZvjhDLYqNJr6PEBxKoMoTlF+LX3yMTk+Pg0Kc3 YztjS6uzMmTKs5YaK0VN2FFUJQU6UVIq== ID Date Data Source [id number] 04/08/2021 08:11:12 AM EDT [facility] Name Value Range Interpretation Code Description Data Stephanie rce(s) Supporting Document(s) Consultation [facility] CSNSNj5uAoNBBvYh41/DNZwkPGYav4UwMFojLFf2KNukJCDwA1JfJQI4dQ4lFZR2MXuDLiIuQhBkMTP8 lbm [file] scKVwnsZ3/KmIRih3uFObiXMcvFudQBFZFSFnQ39XeLkXxCzqkYl03ZvP3pqQhQiVXjbtX5ccOUr/KNIFE OPERATOR [file] ICAgICAgICAgICAgICAgICAgICAgICAgICAgICAgICAgICAgICAgICAgICAgICAgICAgICAgICAgICAg ICAgICAgICAgICAgICAgICAgDQogICAgICAgICAgIC AgICAgICAgICAgICAgICAgICAgICAgICAgICAgICAgICAgICAgICAgICAgICAgICAgICAgICAgICAgIC AgICAgICAgICAgICAgICAgICAgICAgICAgICAgDQogICAgICAgICAgICAgICAgICAgICAgICAgICAgIC AgICAgICAgICAgICAgICAgICAgICAgICAgICAgICAg ICAgICAgICAgICAgICAgICAgICAgICAgICAgICAgICAgICAgICAgDQogICAgICAgICAgICAgICAgICAg ICAgICAgICAgICAgICAgICAgICAgICAgICAgICAgICAgICAgICAgICAgICAgICAgICAgICAgICAgICAg ICAgICAgICAgICAgICAgICAgICAgDQogICAgICAgIC AgICAgICAgICAgICAgICAgICAgICAgICAgICAgICAgICAgICAgICAgICAgICAgICAgICAgICAgICAgIC AgICAgICAgICAgICAgICAgICAgICAgICAgICAgICAgDQogICAgICAgICAgICAgICAgICAgICAgICAgIC AgICAgICAgICAgICAgICAgICAgICAgICAgICAgICAg ICAgICAgICAgICAgICAgICAgICAgICAgICAgICAgICAgICAgICAgICAgDQogICAgICAgICAgICAgICAg ICAgICAgICAgICAgICAgICAgICAgICAgICAgICAgICAgICAgICAgICAgICAgICAgICAgICAgICAgICAg ICAgICAgICAgICAgICAgICAgICAgICAgDQogICAgIC AgICAgICAgICAgICAgICAgICAgICAgICAgICAgICAgICAgICAgICAgICAgICAgICAgICAgICAgICAgIC AgICAgICAgICAgICAgICAgICAgICAgICAgICAgICAgICAgDQogICAgICAgICAgICAgICAgICAgICAgIC AgICAgICAgICAgICAgICAgICAgICAgICAgICAgICAg ICAgICAgICAgICAgICAgICAgICAgICAgICAgICAgICAgICAgICAgICAgICAgDQogICAgICAgICAgICAg ICAgICAgICAgICAgICAgICAgICAgICAgICAgICAgICAgICAgICAgICAgICAgICAgICAgICAgICAgICAg AGCiPIPgFHToXNWkVGZtQXOfAILnUSTrHYWnKCh9I5 eqXMDxFSOpGI0bEBn9Jx5+HLaEHbBnNFD6xyKfqP4WEJ3wp8BkNTffIGZjn1VaWWv4AL7PSZBvGAooSY 1VLAfjcp7XHZCzCMHhkINPl8glCoLrWLM9NMYqFsycNW7IDSHdL8shweChEUVjMTHTMCmlGDTOBDlqBI BIRMEjJLLrTtCdOhFiIGJtKNSdRYTUFJW6YCUdTwOm KMUnOJQtUdVxNASCRIXbJBFxZsRhFAOxJTVyDqjlNXLJBB2HWsTkR2JokO13VIJjYYt+Yt9FOR8pw5Np DZd9SbLzBI4vct6IQUsUUpAzF4UuqqB7EJY4AJVwSi4ERFUcXHAhiHW1XQYtHWOWSqUcB4JmiE58VOQD Cj4+EFryizHwOykASnK3DSOiw0TyZYt6YF3AAPFvSU t8mZLfV04ko2RzyFQlIznwV4bthFR6s1HoGEQzDdKXAJ7kMB3qYXVOWgSidQZ0JmI9DxEgFnYpZYT7OR myMU4gDMbpKU5GEJL9XVxbBNClKJQbX8cLBySnKWXlLXPwpFzrSE8VNqOmD7EuupHieRU7XjDhJWRCIa 4+EInnkkFrQqjLTsO1GBEuj6NlHAt0GJ7XIPBgDZlh CC0KWXRaoB2kSUzhQN4XOaZ8DFRvHKFDPyYuH92klDRwDLn2C1MgCaUdSYTeCgtqNJEoGUecJiGqQJIp WyBdDQogID4+ID4+SJmdMT2UCOlhxwPzHXSsRt1UUOAbLHCbYC4iBMQuLYEeB0I5eAehVUOWJdKoJ9pf yguzTB8uFBIoV659gEcvpcYrWZXpJGDgEd2QZQUyWP S2RYWjaKZpOkPzOVSPJNbgVF8RbFWvBAV5fT7gDUhqBCOlWIWpA4zSSzLiyYlbSG08zFpeaaEgqTNdGI o+Lx5FKG1xt1CpHGl0eqYwHPlcNLH6FYdyCSIxRWNsBGNvVSY6WOW4AYWJKwNjRJVtODCkLEogGMAgUY Ahtz8XRZNrOLR6TAXaNRDdHFRmQZXiTPfbBDMyUGx7 BCY6FWYzONUaPA6RXfHfSEVlKRHeKFvoFINyQKQzjd3NVCYeMPTlHngiVbDgCVOjQJHvZOusHPSfWIO6 RQZ9GMBfXNCfWC2PBcYgQWZnDUz6DISgBQCfBRMtty3SPWIcOPIgMcjpNWGmKBKxGKHdWWonWMJqCCXn KSf4ZNMzNNXwCL5TIvRhIDMgSYFoSJHvSBTrBNQfhr 0YWTDjSAAvDKE7DGVnWSTpMRGbAJloXWAvEMX0AxL6DFJaOPQvII9JJjWzPZJxVAJkONWqTCFqPLTbzm 2DOXWlFUPgMmQhSaRjTCQvJQNhVMcdBSZvZVT1ImL0KBAuCVNbWR0MOaGjQJXyYZy0XmTcLOJwUHFbqn 8ZKUQkIILaLTc6MmNpULLbIUAfBVkhQYBcSWFoYIl7 OKYvDFEyBY9LVtPrPVKiLsT1VgHxJLDaOCKoqi5UQOTcFORfAKF8ZfRmLYCtONQeZNqpZJCwNIA1CnE4 IHIrCRVwOZ3OBcInBRZzWzp1DzAjXJOqGSInsy3HOAZkPZEqPPqzRZUxNYXcJXDsCFpuYTHyTBUhSOT4 ZOSoBBOrYN9OSxSwBJUmCoDnNhxxVICaWLKfzl9GEZ UxDCMjLsNeZSGcMCKfVUAcEUapXNZyOAK5Cfq1QKCuYFGyHX0PZkTfWKTgJaf5JDYqKHFtICQltn5RFV IcYHQxWYz5UwJeGIIbSFIgCDdyYOEhNBP9AUEtKNGqTDWbYA3QRrBdFIEzJwwgQhRoXNBdJDKugf4POO WeTUN9TRA5YoEaQSEeXYOsFOcoBZEfHERbRNt7OIOm DJNpNH2QXxUxQHLwSTC9ORPaPAOgZEZiyq0UJNEmAXV6SXH5DeTeGFWqPIJgLDhaNAReCGXrRRH1COYq THHzDP6UMcWfBTBnJFNjIoOuTMEoOSWyns7UXVCbDDZ7Thv3UYZbYJMhPTAxWQwwQRBgGBUtDQpwPELr NDCuVQ5KByBeDIYxMLBeXTZgUCJrXDBqyx2CSMEaGF L8JLV0BMLmRUFfPRZdSZalAUVaYQW0IZK0OSSjYOYzGW2SSfZjKJHzVZQ9McwtRLJhZXCero7QFQPgSW Q0FYFuZWUvZWFjTTKoBZfuBGKbFKN7GCF3SELbDTNhGV2ZAuFoMINfSga1VBKaZZHbBEBbrt9FNCIwKL G0NMGmVQDzQDPwZKSrZEjoKSHaLMxiJQoqVFNbKDTr QL9JMvYmBZWpXyXnKvHvEGRsIXUmnl6CNFBzMVG4QGF0JUYmQEKlYGWaNLasKUPoQFp9WKn4YDMlSHNx XN6IRmBgXZAqHjRhWbOgQRRmRADzyc7CACCwYSI5GdK7WgJqQOFoYGGbQPbeJDVjKKj4UWu5UUQoUDZr UB7ZUyKtUNDhLrU0KfHvYVSwMNBhdv7AWKZlOBU5Td c3ZWXoEIChPIKdAFyaYDNvXFq9KWN5SEQpCXNdMZ5WSfSaTICdRLO2LjHcFAUcRNLnmm6AUWEuWSG4IM f0InTtZRJoLCZvDKcvXYCvPRw0XYI5JNSjWKDmUV1JBaFrDAIkVHQ3VOqmJVGjNWQarq1SQEWbNJM7Xq IbHRYgKMPeFAPyYQxdCDVvJPa2BlF5MWByJJRvSF8K ZiSlPEMbVDd6TYvuMTKtMPTqno8QLPFzYOV9Pwl8UTXlWXStFIDsTSv4orVdoTQkHYn4BP0EM3YkslBu McWINd2Tt201RAP1NHGtXm3GS4exPo7bNLBbLZGQBd5GJRr2ASCkTSR6BSL1XAYkEyYvCilsTPI1LNn6 MTVlODRmZjE+RQg6QUU7NIYhJtr0GwGvCsOlEGSbRR t1SGMwCRR5NJVtKU6sOKSBGg9+TYvkfSRpkPreKBNZPwu9LVmaPQciJEPJMp5P ID Date Data Source [id number] 04/07/2021 10:13:17 AM EDT [facility] Name Value Range Interpretation Code Description Data Stephanie rce(s) Supporting Document(s) Consultation [facility] ZJJRBk6yHlAHGdHz13/DTMyuLCZkb1FqMRknBVi1AJgwGFGeA9KuWFE0eA1tEMD9RRpHBmXnYyQmCBB7 lbm [file] NHH6AtZ0XJM4BTy9U5KxNDSlVAAdPoEzJJ3CTf9IMqW6LGQ8vOHcAi5ZCzV9XKmQDqFvQA7MFEg= ID Date Data Source [id number] 04/07/2021 08:19:33 AM EDT [facility] Name Value Range Interpretation Code Description Data Stephanie rce(s) Supporting Document(s) History and Physical [facility] SQHPBk9rPvKXWrGr88/EKZtzQCDta4YmZAyaKNb9DVklQWRiS4GxZQA0xG7dSZE9LKqDNgVkNqWjIWS8 lbm QtZiiRDtEvRIWcMcjHMsOmUMskUdypdXYlJV7KkLD2LLCeD44yKCEkVPXrP4CxDPO1PAc+Ad3IYAPznW HjZL7FDlkS0J5cw5zHNa4+wP2HRQ/otUFic/m2pL+tgoA3xTMITcFNxLsVkm44nyOmxbnce0layqB2UF VT+xFCKvshqK9Sc9MmaFicmS+YYFi113z7LnRD76Dt 3+ygRW98DeD//GzePok38ZDRG4BSciB6Hf0SU9H/A/5wU21epR7PozojrrSQPandpzzMz8IrJrTZDqn/ qsEvSodhNpKBdwWodQH+CbN5Wqp4vIIWEGdeGuUSHLGWJeRJpOdehN8GXbzX90DkQ6aZWU6mIXPeBY/7 yF454HWRGZnrdXu7n9w5RGLRmwMlbJDXMIUYarLQN/ 2Yw92B+nlj/hIwyWgHRU7kmnVu6lBFY3xVQoRhuDxLiPkFywbn9+uvcGu/KeadNDB+kL4knklPvae5io stj3b33M9AzAo+ILzqBzTTsvqOATy9qY8F6RQFo/8b1OcRWkCkOIrtQ3YTpFu4jL2ceSvsb+KHyq5ORE CCHgKrtgUx0dy8qOsoXmbsjSrJfCtL3PrM97CtacR3 a49fAGMpA1IJVf0UI5wJNqgHrZnLuM/+H77qVYtfrmJ/Hk+HV0L6+YCmqagIKuWdySfsKmbK2kzj4XUZ Jd9LS43g9AbZi1zfQMMzvA63UkCm1TlF30g2QmO6XD80CnQ2gy9s/uYchyNE73ssFZdkwnrzdcS/c/L+ Q/es131/jdbisO2pqDH1rfqmhXnZUtDcK4jMrf2nLk fumRP5m+z/ith9r7sNoObIhYqghX8WAcybq5PhTqx6BlHRvwx2+KuGiHuJylbjPaidyb55uEWMHN4Qkm T7HbG7cyBjaPjfuRP9F00RRVEvrMFHRXIjHV2B3axUFOAF0+R2mMKkBNCVMby+IUzG64xjky4kydtwYT ZeQ8nmci7n1j5DnprkauXegcO2chpiIpXEtjVunuo1 [file] ICAgICAgICAgICAgICAgICAgICAgICAgICAgICAgICAgICAgICAgICAgICAgICAgICAgICAgICAgICAg ICAgICAgICAgICAgICAgICAgICAgICAgICAgICAgICAgICAgICANCiAgICAgICAgICAgICAgICAgICAg ICAgICAgICAgICAgICAgICAgICAgICAgICAgICAgIC AgICAgICAgICAgICAgICAgICAgICAgICAgICAgICAgICAgICAgICAgICAgICAgICANCiAgICAgICAgIC AgICAgICAgICAgICAgICAgICAgICAgICAgICAgICAgICAgICAgICAgICAgICAgICAgICAgICAgICAgIC AgICAgICAgICAgICAgICAgICAgICAgICAgICAgICAN CiAgICAgICAgICAgICAgICAgICAgICAgICAgICAgICAgICAgICAgICAgICAgICAgICAgICAgICAgICAg ICAgICAgICAgICAgICAgICAgICAgICAgICAgICAgICAgICAgICAgICANCiAgICAgICAgICAgICAgICAg ICAgICAgICAgICAgICAgICAgICAgICAgICAgICAgIC AgICAgICAgICAgICAgICAgICAgICAgICAgICAgICAgICAgICAgICAgICAgICAgICAgICANCiAgICAgIC AgICAgICAgICAgICAgICAgICAgICAgICAgICAgICAgICAgICAgICAgICAgICAgICAgICAgICAgICAgIC AgICAgICAgICAgICAgICAgICAgICAgICAgICAgICAg ICANCiAgICAgICAgICAgICAgICAgICAgICAgICAgICAgICAgICAgICAgICAgICAgICAgICAgICAgICAg ICAgICAgICAgICAgICAgICAgICAgICAgICAgICAgICAgICAgICAgICAgICANCiAgICAgICAgICAgICAg ICAgICAgICAgICAgICAgICAgICAgICAgICAgICAgIC AgICAgICAgICAgICAgICAgICAgICAgICAgICAgICAgICAgICAgICAgICAgICAgICAgICAgICANCiAgIC AgICAgICAgICAgICAgICAgICAgICAgICAgICAgICAgICAgICAgICAgICAgICAgICAgICAgICAgICAgIC AgICAgICAgICAgICAgICAgICAgICAgICAgICAgICAg ICAgICANCiAgICAgICAgICAgICAgICAgICAgICAgICAgICAgICAgICAgICAgICAgICAgICAgICAgICAg ICAgICAgICAgICAgICAgICAgICAgICAgICAgICAgICAgICAgICAgICAgICAgICANCjw/bXVsB4ecnNVh ebS0I9qfFz3AGc0NSX8jj9NzUHFwWUwugsUhLtpLOh YbJOUwFaqFXla7BElbAQ5PzOPgP8RqE0LsCTlsQE8LIWCaKBUdxLYjVAZzITUdObQ7EIXtEGztDZ7SeV XhRMjyVEJcAWMySfOkRFAaKNWoHHRuXNHzRMKAZPLrLHGbKdQzMARxLGGgKRxeNOVEWJL4FPHlTsIzAN NdAHNuMsZoFLTLAVL2LRZaWgSpZrHiIAQsHX5WPDIh R376ddJcDZWQVo2+SBroiaKrEynYWyTcMOOlc7AmFPl8GQ3KUXCdNamdi9CuMvXzWWUTCTqvBS6QSUU3 KGA6PBZeYa0GJHZhX071ddHpJW9JJo1OFlFlVF9tpb9RBfGfKVSeTxtGSye6GMggTV5CtRWsYZcFXdNj IjqvN8fjgDW5p3JiPHMtNlWNCK9xEW4uFAOESbHzzR T1FfS5TqBsLjWtBSW4MdtsGL6xAUcfHR6MVKT2IVbkONGdWZWlR4pWBvAuMFKwYBCynCurTA2CTiKhD2 UledZopJU1SmPqWLDZWj3+QDvzyfFkXthEAfB8PQAhm5LtHYx5ZW1ZUZDvHYslHH9TCKVfnP4yNPnlPT 1YKiR5DFLrETBHNqEcR10owQUlXBc9C7BfPnKoGINy RmlsZXMgPDwvTmFtZXMgWyBdDQogID4+ID4+LWqtCB0HQQvjwuBfDZMfXj0KDQNnVRJjCD9jTLJwIYWi K5N1yActCDPOGjTaM7qtiffpOX4pYISuG390dWxjjyWxBALhJNJlPu0XBQMnOSU6NURzyHRoBvHwAVEW GKcyAG9UoEXsGBT2yO4eMEhcJHBvLYCcG2lLBbPijC vsHC87vInxyeJybAYqFWp+Qc1RLQ9fz5FnNWw3plIlUKxdNLO3VOphTMLnDTXgKDMpGHY1WNZ1DGEZVu ZeFLOeZEEyUIebQLNtVPRosh5KYBIiJRC3CzwvHjIaXXUxMHDdTOrvYTUzDNd7SWH8KOLtHQBqZM3ATr PcNGGaVGChYDlrWFOfCIGssm1FGMQjFWWbLjz4IdNf NENjDPCgQGkzETOaMXM9PNxzBGXePOWtQU8CLnScYUHsQOd2ZEUiAXTtLSQfic7ONREiGUQhNkxlFMYp SXMzEYLtPFmcAOLqISTePpQuISLgQFIaKB8NSwPvILBhDBH1CYIaGFLxQOQfbx8YTYTfJHRgKXC4URBf GNYkFHSuIXnyLVUxAHH1YwQ6BMIdETCvTQ3ILbHfIN CjHDwhSolzIZGwXJVjag8AMMIjLXEfPtZ9GKAhRPFzZJObPPszYYSyRRO6Gzo4BBMfQJImQU8FKrEpIE UzMTb4XSYiUEWlYXYzkv0IQOJlASTvNmBeKMLjIUNqXWJvFJgrNNMdRSTiIgRrVIOkPFBrBN3IHqXvQA SuRvJ1QPJiUXNiSTHqfv9XJVOcBYCjAXQ6VvEiGCZf QXOhYLtzIELxOCK7OUU5WGCoKDPiEZ9NZfCvGKPaBtmuFDCaLOXaCLLceh4ETNOoSEZfXpU1TOUdXXDq LCKnOVtgQVOiGBGkQXJxGFSrTHRiMU6QTjXdHIFlMwC9GTZkPLKtTQLjbz2LXLAkXSSlNtAeNDVrOUQf RIJsCNngYGIwCNT9Ssc6NZHkOUHfVT2NInPzSBPvOo n1UKAzBNWiBMZkvp8DXYSiFIN5VZw8YXZdWGWeEWFrERvoZJSnCCVpTVGsKMXcAUYbMO4IGsCrAFZwQB KpHCCoIXIaGMYkcy8ITSVvEAZ3XmLaCjImSOScSGJyPZmnCDJhHUQdNKQ9CTJdZXRmAC5BDgDcLVKlAN X0VXCsAHFwMELtsa7MYMCuJRZ0NqU9WrKeFJYbQGCx ZKlpITIqTRJqAhNkRIDrTQZoTH2RScPdFSMuYEX4MuMhEOXhEYOjoi2ZCZBaXWS0OXu3XfPiKMVmMYJp VBshEGFtPUO3UBLdPYMkQNXrNM7JOdNrCTLsTFQdGVAsOEUwSAIcbj1GCLTwRZH0RtJ4TqLvUHFwQGEv FFiaZZTtGCR3GRYwNVEqIRThLK5LIaTeKCLbWOE3JQ MrYQZtVMHpuj4AEWKkSHI1JCU8TNNkNSObZKJwISfyGYQzAAX5XZHtYPYyFQIdUF1EEkOdUFLnOYd2Zy EuILHsXVBtxm4AYYMvVTB1UNw8PSDbSUPpAOUqXDbxJRAgJYX4TKB2SCAcFWUuBA0TJuOeULYcVjG7Zc ShMQBtRNMyfa9YKZSaLKE9JKD1OUOyJCFuBGRsUUxw HBNfTJS0TUZmHKKnZIOjJW3FTxAqAVQoIjB0BWNsOIRtTWMbwl5GMKLzQUS1VYq3UJHdRJQwXGYeJUne SFKuSED6DNB6CEExBCWpCB2WTeHsIHGqOwGxXAIeUCYvICIaqq1RKPTsGOY5DNPgEQMsXUVfCSOlIWdl YOZvYSr5Wyw0NDKvZVZqQY9ESzMoFJGbMwqwPCMlQX GtYOIfdr9GGABkGSX4IvEiPNQrKUChURVwYYyeKXDmRSw6MXH4DVJsZVHvCT6VBgLkDUZmEqp8VYLpAH EsKUApqq4RZIPpQYR0QUF3AaCyTXIbTCGgWQsxRRCmIGs0EcAwLQLaOGDfTG9HIpGiBINvLgl6MPAlCL LqYJUted9VHYSoNCK5SYrsCsEbIOOuWDFwIGg5grLv cMUoOWp7EL4RL2EbclByNlKOUe2Mw532OZC8PHTxNv4BG1orMd7lEICzPTJOOm2XNCy8PtCzAIYeEcCr XkSsYFYnXxr9FtldWDE1HaZ1SzL3DJA+BXt2W3N5KaGhFMOaC7S2XMKaXttuRrZ8WjnoTCuwMaJsJu6a XSANCj4+TScrgXTnoBqvRYVZOukcGXplODpeCITVAa3A ID Date Data Source [id number] 04/05/2021 08:52:29 AM EDT [facility] Name Value Range Interpretation Code Description Data Stephanie rce(s) Supporting Document(s) [facility] EJVLEo5aXoEUVgOgj2OsRrBtPGArLP9hoso5Q7X7pZXnE6GcgLHjw9gwI0NeG3FbWNPzRZOALE7LjRMa jb2 [file] 9fmJ/PnyXDrslf9HyoQv+2Z4taf4O52dD9h+Brionna/F4jUc8BxsYwToUGKyuqYT/wPYcCZJ3mpfQv72h9w Y/9ofj9PJdvWnzvjiTMaHy8vgMH89c7vN65j0m6Uls Ucex7MnjEjd6kd8e8PoKIphQVnJ6Tp0VhlOF9PoK938jwxD+b0+Dw/fD5R2bS1du/a84xA35QrqTxIzO gr48GDzhcTg8tAov/MiiP6ZU9dc7D8MU2rV6WxHk81he89XzMZ1gcb6IiE4Z6E/NwxCvoAtKr8fMfMnY NyO4kJuKVdr3rRP1CmbmwIfmfEtaPHR+R7aZq0BH0V y7l3zrRiEu0DaSiztfhW4ZiERIrzMe63MFsUCDhRFwVytGW+F6xgaf869v3rHZA5pmV+V2EssuAKno6M pJQBHBv47sKvK6b8hiutwOCsPgG6o+i70/y1mFEQW/e0sYPNdrT1Q5NtWUTQ0d3sA7txEqh8Nf+maría/O [file] K7l5AMLdRDytBB5fgnLeQOMxVwnqGu0ifUX3PLQpPwpYKn8Ay9AgsnH8yfFlVsU7WCT4MiRtMZ8J ID Date Data Source [id number] 04/05/2021 08:52:16 AM EDT [facility] Name Value Range Interpretation Code Description Data Stephanie rce(s) Supporting Document(s) [facility] SYWGMb7uRhEMOhAwv0WdRrHzCTHjXG5ephz8M2J1nXOqX9BovVEno4nhU5OnO1OfTVAlKDUIOS0IjXSn jb2 [file] /u7//zt95y7Hv6x3kgvjMbu0/X506i+tj8/ HZG2hueCmx+QdqKOfP+moHPrvPVvCfP+kedo2JJN6zfGF8B9F8sEuDpAbtd58/u5fhWm1gbeWO95e/jK eai+p+ma66P2TlAcO2n8gozjvopEh83/Y2VwTbQd/E4zeeifbBCogAyfe9s7rsM/6m5du978j8b3u/u9 r3O/taCS44c/zlog53HmdO7O8YjUB8LygjceC4d3pa nfer/5BsdXZbi54XJ/K53qv/U76HrQ/oOgtu6xCA5n9yGmhTiLZ2A0+eabi0W32vCB5UwGn4/8hr07I3 hFys5lms4kajGyZiQg40kZpD/Sg1gvCA6Ax8/GD4wVTtHjplWqlnWCPBr4JW4HPTm/J12fdP+idNbXH2 /Wt3/WrvU2xwXW+bPfos0Ks6f78oUh418pDP/8zvri eyuPO8WokY/p+pPcl44Ocn9hxGZtro+xee85gJjnXzfl/H5yh49OqEFCuZ/DORzf93ZQS980ur9w190Q wz/Ec87asq6V/eKYEcWGfwqx01/5rPlYHMDZ50RNoqhP7Az8AjQ/sM6y0621z61QtB+uT/t+X52ib050 14x5peOJl38/ja7b7/qo+89Dv/N63eO/67Ou++969p [file] ucKf0qYjEsVITPP7Zst5SaCGSzFBUYSa4+XaX8XXD2sLUrLgg3LRNhCDgyADBHYl== ID Date Data Source [id number] 04/05/2021 02:07:06 AM EDT [facility] Name Value Range Interpretation Code Description Data Stephanie rce(s) Supporting Document(s) Color of Urine [facility] Clarity of Urine [facility] Specific gravity of Urine by Refractometry automated 1.016 1.003 -1.030 [facility] pH of Urine by Automated test strip 6.0 5.0-8.0 [facility] Protein [Mass/volume] in Urine [facility] [Mass/volume] in Urine by Automated test strip Neg [facility] Ketones [Mass/volume] in Urine by Automated test strip Neg [facility] Bilirubin.total [Presence] in Urine by Automated test strip Negative [facility] Hemoglobin [Presence] in Urine by Automated test strip Neg [facility] Leukocyte esterase [Presence] in Urine by Automated test strip Negative [facility] Nitrite [Presence] in Urine by Automated test strip Negati ve [facility] Leukocytes [#/area] in Urine sediment by Automated count 2 /HPF 0 -5 [facility] Erythrocytes [#/area] in Urine sediment by Automated count 0-3 [facility] Bacteria [#/area] in Urine sediment by Automated count Non e [facility] Epithelial cells.squamous [#/area] in Urine sediment by Auto mated count 4 /HPF None [facility] Mucus [#/area] in Urine sediment by Microscopy low power field None [facility] ID Date Data Source [id number] 04/05/2021 02:27:17 AM EDT [facility] Name Value Range Interpretation Code Description Data Stephanie rce(s) Supporting Document(s) Amphetamine [Presence] in Urine by Screen method Negative [facility] Benzodiazepines [Presence] in [facility] Cannabinoids [Presence] in Urine by Screen method Negative [facility] Benzoylecgonine [Presence] in [facility]rine [facility] Methadone [Presence] in Urine by Screen method Negative [facility] Opiates [Presence] in Urine by Screen method Negative [facility] Oxycodone [Presence] in Urine by Screen method Negative [facility] Fentanyl+Norfentanyl [Presence] in Urine by Screen method Negative [facility] Service comment [facility] Results below the indicated cutoff (ng/m L), are reported as"Negative." Note: for medical purposes only; not valid for legalor employment testing. ID Date Data Source [id number] 04/05/2021 01:30:00 AM EDT [facility] Name Value Range Interpretation Code Description Data Stephanie rce(s) Supporting Document(s) SARS-CoV-2 RNA 2019 nCoV Real-Time RT-PCR: NOT [facility]ECTED [facility] This lab was ordered by [facility] and reported by Health system [facility]. ID Date Data Source [id number] 04/05/2021 09:15:34 AM T [facility] Name Value Range Interpretation Code Description Data Stephanie rce(s) Supporting Document(s) Hemoglobin A1c/Hemoglobin.total in Blood by HPLC 4.7 % 4.0-6.0 [facility] (NOTE)<5.7% Average risk of diabetes (ADA)5.7-6.4% Increased risk of diabetes(ADA)>/= 6.5% Diagnostic for diabetes(ADA) Glucose mean value [Mass/volume] in Blood Estimated fr om glycated hemoglobin 88 mg/dL <126 [facility] ID Date Data Source [id number] 04/05/2021 01:49:12 AM [facility] Name Value Range Interpretation Code Description Data Stephanie rce(s) Supporting Document(s) Leukocytes [#/volume] in Blood by Automated count 7.5 10*3/uL 4.5-13 [facility] Erythrocytes [#/volume] in Blood by Automated count 4.28 10*6/uL 4.1- 5.3 [facility] Hemoglobin [Mass/volume] in Blood 12.6 g/dL 11.5-15.5 [facility] Hematocrit [Volume Fraction] of Blood by Automated count 37.6 % 3 6-45 [facility] Erythrocyte mean corpuscular volume [Entitic volume] by Auto mated count 87.8 fL 80-96 [facility] Erythrocyte mean corpuscular hemoglobin [Entitic mass] by Automated count 29.5 pg 27-33 [facility] Erythrocyte mean corpuscular hemoglobin concentration [Mass/volume] by Automated count 33.5 g/dL 32.0-36.0 [facility] distribution width [Ratio] by Automated count 12.9 % 11.5-14.5 [facility] Platelets [#/volume] in Blood by Automated count 245 10*3/uL 150-400 [facility] Differential cell count method - Blood [facility] Neutrophils/100 leukocytes in Blood by Automated count 55 % [facility] Lymphocytes/100 leukocytes in Blood by Automated count 36 % [facility] Monocytes/100 leukocytes in Blood by Automated count 7 % [facility] Eosinophils/100 leukocytes in Blood by Automated count 2 % [facility] Basophils/100 leukocytes in Blood by Automated count 0 % [facility] Neutrophils [#/volume] in Blood by Automated count 4.13 10*3/uL 1.8-7 .0 [facility] Lymphocytes [#/volume] in Blood by Automated count 2.70 10*3/uL 1.2-4 .0 [facility] Monocytes [#/volume] in Blood by Automated count 0.51 10*3/uL 0-0.8 [facility] Eosinophils [#/volume] in Blood by Automated count 0.11 10*3/uL 0-0.5 [facility] Basophils [#/volume] in Blood by Automated count 0.01 10*3/uL 0-0.2 [facility] Nucleated erythrocytes/100 leukocytes [Ratio] in Blood by Automated count 0 /100{WBCs} 0-0 [facility] ID Date Data Source [id number] 04/05/2021 01:58:23 AM [facility] Value Range Interpretation Code Description Data Stephanie rce(s) Supporting Document(s) Prothrombin time (PT) 13.6 s 11.6-14.0 [facility] INR in Platelet poor plasma by Coagulation assay 1.09 [facility] Routine intensity oral anticoagulation I NR is typically 2.0-3.0. Target INR must be clinically individualized. ID Date Data Source [id number] 04/05/2021 02:22:57 AM [facility] Value Range Interpretation Code Description Data Stephanie rce(s) Supporting Document(s) Acetaminophen [Mass/volume] in Serum or Plasma 10.0-30.0 L [facility] ID Date Data Source [id number] 04/05/2021 02:22:57 AM [facility] Value Range Interpretation Code Description Data Stephanie rce(s) Supporting Document(s) Thyrotropin [Units/volume] in Serum or Plasma 2.870 u[IU]/mL 0.270-4. 200 [facility] ID Date Data Source [id number] 04/05/2021 02:22:57 AM [facility] Value Range Interpretation Code Description Data Stephanie rce(s) Supporting Document(s) Albumin [Mass/volume] in Serum or Plasma by Bromocresol green (BCG) dye binding method 4.2 g/dL 3.5-5.2 [facility] Bilirubin.total [Mass/volume] in Serum or Plasma 0.2 mg/dL <1.2 [facility] Calcium [Mass/volume] in Serum or Plasma 8.8 mg/dL 8.6-10.0 [facility] Chloride [Moles/volume] in Serum or Plasma 107 mmol/L 98-107 [facility] Creatinine [Mass/volume] in Serum or Plasma 0.59 mg/dL 0.50-0.90 [facility] Glucose [Mass/volume] in Serum or Plasma 91 mg/dL 70-140 [facility] Alkaline phosphatase [Enzymatic activity/volume] in Serum or Plasma 113 U/L 35-104 H [facility] Potassium [Moles/volume] in Serum or Plasma 4.0 mmol/L 3.4-5.1 [facility] Protein [Mass/volume] in Serum or Plasma 7.3 g/dL 6.4-8.3 [facility] Sodium [Moles/volume] in Serum or Plasma 140 mmol/L 136-145 [facility] Aspartate aminotransferase [Enzymatic activity/volume] in Serum or Plasma 29 U/L <32 [facility] Urea nitrogen [Mass/volume] in Serum or Plasma 13 mg/dL 6-20 [facility] Osmolality of Serum or Plasma by calculation 290 mosm/kg 275-300 [facility] Creatinine/Urea nitrogen [Mass Ratio] in Serum or Plasma 22 [facility] Bicarbonate [Moles/volume] in Serum 23 mmol/L 22-29 [facility] Alanine aminotransferase [Enzymatic activity/volume] in Seru m or Plasma 40 U/L <33 H [facility] Anion gap 3 in Serum or Plasma 10 mmol/L 8-15 [facility] Glomerular filtration rate/1.73 sq M pre dicted among non-blacks [Volume Rate/Area] in Serum or Plasma by Creatinine-based formula (MDRD) >6 0 [facility] Glomerular filtration rate/1.73 sq M pre dicted among blacks [Volume Rate/Area] in Serum or Plasma by Creatinine-based formula (MDRD) >60 [facility] ID Date Data Source [id number] 04/05/2021 02:22:57 AM [facility] Value Range Interpretation Code Description Data Stephanie rce(s) Supporting Document(s) Ethanol [Mass/volume] in Serum or Plasma Negative [facility] ID Date Data Source [id number] 04/05/2021 02:22:57 AM [facility] Value Range Interpretation Code Description Data Stephanie rce(s) Supporting Document(s) Salicylates [Mass/volume] in Serum or Plasma 3.0-30.0 L [facility] ID Date Data Source [id number] 04/05/2021 08:42:04 AM [facility] Value Range Interpretation Code Description Data Stephanie rce(s) Supporting Document(s) Choriogonadotropin.beta subunit [Moles/volume] in Serum or Plasma <5 [facility] ID Date Data Source [id number] 04/05/2021 08:53:54 AM [facility] Value Range Interpretation Code Description Data Stephanie rce(s) Supporting Document(s) Cholesterol [Mass/volume] in Serum or Plasma 155 mg/dL <200 [facility] Triglyceride [Mass/volume] in Serum or Plasma 118 mg/dL <150 [facility] Cholesterol in HDL [Mass/volume] in Serum or Plasma 40 mg/dL >50 L [facility] Cholesterol in LDL [Mass/volume] in Serum or Plasma by calcu lation 91 mg/dL <100 [facility] Cholesterol in VLDL [Mass/volume] in Serum or Plasma by calc ulation 24 mg/dl 16-42 [facility] Cholesterol non HDL [Mass/volume] in Serum or Plasma 115 mg/dL <130 [facility] ID Date Data Source [id number] 04/05/2021 02:51:14 AM [facility] Service Cmnt XXX-Imp : NoneRespiratory P CR Panel : PCR ResultsMicroorganism XXX Cult : See Labs Tab for 2019 nCoV RT-PCR resultsHAdV DNA QI CORDELL+non-probe : Not DetectedHCoV [id number] Nph QI CORDELL+non-probe : Not DetectedHCoV [id number] Nph QI CORDELL+non-probe : Not [id number] RNA Nph QI CORDELL+non-probe : Not [id number] RNA Upper resp QI CORDELL+probe : Not [...] DNA Nph Q CORDELL+non-probe : Not DetectedB [id number] DNA Nph CORDELL+non-probe : Not Detected Name Value Range Interpretation Code Description Data Stephanie rce(s) Supporting Document(s) ID Date Data Source [id number] 04/05/2021 02:50:27 AM EDT [facility] Name Value Range Interpretation Code Description Data Stephanie rce(s) Supporting Document(s) Specimen source [Identifier] of Unspecified specimen [facility] SARS-CoV-2 RNA 2019 nCoV Real-Time RT-PCR: NOT DETECTED [facility] Assay Performed [facility] Patients first test for [facility] 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 [facility] Patient has symptoms related to [facility] When did you start to experience these symptoms [Date and time] [Phen X] [facility] Patient was hospitalized because of this condition [facility] patient was admitted to ICU for [facility] Patient resides in a congregate care setting [facility] status [facility] ID Date Data Source [id number]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 Triage - Drug Screen; Complete Time: 09:84gm408:12 Interpretation: Within normal limits.:38 Order name: UA; Complete Time: 00::38 Order name: Urine HCG Qualitative; Complete Time: 00::38 Order name: Diet - Mental Health Tray (call dietary); Complete Time:00::38 Order name: Belongings List; Complete Time: 01:04kc811:38 Order name: Document Weight and Height for BMI; Complete Time: 00::38 Order name: Mental Health Evaluation; Complete Time: 01:05ux127/1923:38 Order name: Mental Health Level 3; Complete Time: 00::38 Order name: VS q shift; Complete Time: 00::21 Order name: Medically Cleared for Eval by-Psychosocial, Cd Mixer Helper (YE):02 Order name: Mental Health Level 4; Complete Time: 05:0 9vx9Aivzbkdft Medications:03/2003:48 Drug: OLANZapine 10 mg [olanzapine 10 mg tablet (1 tabs)] Route: PO;jw504:30 Follow up: Response: No adverse reaction; No change in lgmjpnpzcqa450:08 Drug: Geodon 20 mg [ziprasidone 20 mg/mL (final concentration)intramuscular solution jw5(1 mL)] Route: IM; Site: left deltoid;07:13 Follow up: Response: No adverse yuoyhoqxce781/2100:00 Drug: Geodon 20 mg [ziprasidone 20 mg/mL (final concentration)intramuscular solution tp2(1 mL)] Route: IM; Site: left deltoid;00:30 Follow up: Response: No adverse ebqraywnhl438:00 Drug: LORazepam 2 mg [lorazepam 2 mg/mL injection solution (1 mL)] Route:IM; Site: vb9llfdb deltoid;00:30 Follow up: Response: No adverse eamgubqfsc050:00 Drug: diphenhydrAMINE 50 mg [diphenhydramine 50 mg/mL injection solution(1 mL)] Route: tp2IM; Site: right deltoid;00:30 Follow up: Response: No adverse expemxzivx539:22 Drug: LORazepam 2 mg [lorazepam 2 mg/mL injection solution (1 mL)] Route:IM; Site: jlright vastus lateralis;10:33 Follow up: Response: Anxiety asurmgzndxw221:23 Drug: diphenhydrAMINE 50 mg [diphenhydramine 50 mg/mL injection solution(1 mL)] Route: jlIM; Site: right vastus lateralis;10:33 Follow up: Response: Anxiety ccusbwxrjoq799:24 Drug: Geodon 20 mg [ziprasidone 20 mg/mL (final concentration)intramuscular solution jl(1 mL)] Route: IM; Site: right vastus lateralis;10:33 Follow up: Response: Anxiety khaasuwflgx1Wkmjqkjujn:Dispatcher [employer] Kylie Fishman MD MD seHowland, MD SARAH Ramirez lo7VsfmuFortunato humphrey, RN RN vy3QcWjwtgBertha lundberg RN RN jlPutaimee, Breonna, RN RN ht4Apmcsdnl, Ami AMAYA ef1 Name Value Range Interpretation Code Description Data Stephanie rce(s) Supporting Document(s) ID Date Data Source [id number] 04/01/2021 06:53:00 PM EDT [facility] Nurse's NotesClaxCapital [facility] terName: Yareli DuvallAge: 20 yrsSex: FemaleDOB: 2000MRN: [id number] Date: 03/30/2021Time: 23:26Account#: [id number] MD: NONE, - Per PatientDiagnosis: Free text-PTSD, bipolar with depressionPresentation:03/1923:28 Presenting complaint: Patient brought in by [employer] [facility] lw5plzusvvjhe due to patient calling reporting suicidal thoughts with plan to hangself oroverdose. International Travel Fever No. Coronavirus Screening: Have you beendiagnosedwith COVID-19 in the past 30 days? no Are you currently on quarantine by PublicHealth?no Flu-like symptoms reported in the last 14 days: no. Have you had closecontact withconfirmed or suspected COVID-19 case? no Do you live in a setting where a largeofamount of people live, such as intermediate, family care, nursing home, etc? no. Haveyoutraveled to a location with widespread or ongoing COVID-19 community spread oroutsideNE[facility]? no Have you traveled internationally or h ad contact with someonethat hastraveled and has been ill in the past 3 weeks? no Have you received the COVIDvaccine?Yes. Communicable Disease Screen: Negative for fever>/= 100 degrees Fahrenheit.Communicable disease screen is negative. (-) rash or unusual skin lesion (-)travel/contact with traveler (-) respiratory symptoms. Communication SpeaksEnglish?Yes, is preferred language.23:28 Acuity: Triage 1wk824:28 Method Of Arrival: Gseugufm909:30 Acuity Assignment: Triage 0jx2Jbqtcg Assessment:23:33 General: Appears in no apparent distress, [...] threats or abuse. Denies injuries from another.Nutritional ik1btzasxpcu: No deficits noted. Offer of HIV testing: patient was previouslyofferedscreening. Fall Risk None identified.Assessment:23:44 Reassessment: see triage.jw509/2000:54 Reassessment: No changes from previously documented assessment.jw503:24 Reassessment: after PSA informed patient that she would have to wait tillmorning and ss8qmvh the morning psychiatrist decide if she would [...] Zyprexa 10 mg po to helpwith anxiety ek7txizbsov and order received and medication given .05:02 Reassessment: Patient was using a marker to color as a coping strategyand took marker pv4qatdc and cut left forearm with part of marker all markers removed and woundcleanedand dressed, patient then tried to push her way out of the ER in an attempt toleaveand was stopped by staff. After patient was returned to stretcher patient begantostart hitting her head on the wall and refused to stop. was notified of allthat wasgoing on and medication was ordered and recieved and patient was changed tolevel 4observation.05:15 Reassessment: Patient again attempted to walk out of the ER and wasturned around by fq7ogmgr without incident .06:53 Reassessment: No changes from previously documented assessment.jw507:13 Reassessment: Patient appears in no apparent distress at this time.ef109/2100:14 Reassessment: At around 2345 patient started to try to push way throughER door several xn8fftvwdum made to keep patient turned around, patient continued to escalate andtry topush past staff when unsuccessful patient began to dig at arm in an attempt toharmself. MD notified and PRN medication ordered and given. [...] and joking with staff in a bright mood.pv9Jwtdsumzkvsb:03/2002:34 SAFE Act Report Not Completed. Intervention: Observation Level 3. Mentalhealth consult hfis initiated at 01:50. Referral Information: Evaluation referral is generatedby apolice agency: [facility]. The patient was referred for evaluationbecausesuicidal i deation with a plan. Subjective: The patients chief complaint is Ptpresentsto the ED with Health System due to Pt contacting them stating that she issuicidalwith a plan. Pt reports increased depression and being suicidal with a plan tohangself, overdose or jump off a bridge. Pt reports that she was at [facility] and transferred to [facility] yesterday and discharged. Ptreports lorraine is still feeling suicidal and was unable to contract for safety so doesn'tknow whythey discharged her. Pt reports increased stress due to; not feeling safe ather [facility]residence due to another resident, increased family conflict due to beingtransgenderand an ex being in penitentiary. Pt states that she has not been following the rulesat TLS.Pt denies HI. Pt denies any [facility] Pt does have an extensive history of suicide attempts, reporting 10+.Ptreports self harm by scraping her arm with a knife three weeks ago. Pt [facility]att[facility] [place]. Pt reportsthat valentinas been eating more due [...] overdose 02/2020 Mental HealthAdmissions:multiple, last being at [place] 03/16/21 Current Outpatient Mental HealthServices:Psychiatrist / Agency: eulalia ([facility] in [place]). Therapist /Agency:Gryason Farley ([facility] in [place]). Living Environment: The patientcurrently lives in a [facility] residence. Patient presents to Emergency Departmentwith [...] structure. pills. Homicidal Ideation: Denies.02:56 Narrative This creative services writer spoke with Dr. Simon, Dr. Simon recommendskeeping Pt in the ED hfat this time and presenting Pt to the psychiatrist on during the day.Consultation:Psych MD informed of patient's status at 02:56, ED MD notified of patientsstatus at02:56. Disposition: Medically cleared for disposition by Dr Argueta.PsychiatricConsult is performed by phone with Dr Simon. The patient is not a servicemember ormilitary dependent. [place]es Suicide Severity Rating Scale: Suicidal IdeationRating 3;Intensity of Ideations Rating 15; Suicidal Behavior Rating 0.07:39 Narrative PSA role handed off to this creative services writer at 0730 AM.hf07:53 Narrative PSA role handed off to this creative services writer at 0730 AM.em210:49 Narrative Pt is sleeping. Sitter is present. Safety is maintained .em212:43 Narrative Pt is sleeping. Sitter is present. Safety is maintained.em217:17 Legal Status: Patient's legal status will be Emergency: 9.39. DSM-V DXAxis I tx9umpyotnmn: Other Borderline Personality Disorder [place] II diagnosis: DeferredAxis IIIdiagnosis: None. [place] IV diagnosis: poor coping skills. InsurancePre-Certification:Not Required. [facility] A dmission Criteria: The patient is experiencing [...] to 1755 PM. [facility]. ED Staff and [...] status will be Emergency: 9.39. Commitmentpapers are xl0grzqmfbjx. Pt has been provided a copy of their legal status and rights. DSM- VDX AxisI diagnosis: Bipolar D/O, depressed Post Traumatic Stress Disorder. Transitionof careto Pt will be transported to [facility] with [facility] and [facility].Psych:03/1923:37 Subjective: Patient's mood is elevated, Delusions are denied,Hallucinations are denied dz8Twngwa thoughts of suicide. Plan for suicide is [...] staff). Nasal Swab Collected by Nurse.jw523:55 Fortunato Mark RN is Primary Nurse.jw509/2000:55 S itter at bedside.jw503:37 Sitter at bedside.jw505:23 Sitter at bedside.jw506:53 Sitter at bedside.jw519:17 Primary Nurse role handed off by Fortunato Mark RNjw509/2100:29 Fortunato Mark RN is Primary Nurse.jw502:27 Sitter [...] Response: No adverse reaction; No change in aiheqkklxkl843:08 Drug: Geodon 20 mg [ziprasidone 20 mg/mL (final concentration)intramuscular solution jw5(1 mL)] Route: IM; Site: left deltoid;07:13 Follow up: Response: No adverse fjxnkzuvir256/2100:00 Drug: Geodon 20 mg [ziprasidone 20 mg/mL (final concentration)intramuscular solution tp2(1 mL)] Route: IM; Site: left deltoid;00:30 Follow up: Response: No adverse fznnhnaqqn388:00 Drug: LORazepam 2 mg [lorazepam 2 mg/mL injection solution (1 mL)] Route:IM; Site: pt8fazbl deltoid;00:30 Follow up: Response: No adverse jmvaqeghhp070:00 Drug: diphenhydrAMINE 50 mg [diphenhydramine 50 mg/mL injection solution(1 mL)] Route: tp2IM; Site: right deltoid;00:30 Follow up: Response: No adverse nizahtrwtc151:22 Drug: LORazepam 2 mg [lorazepam 2 mg/mL injection solution (1 mL)] Route:IM; Site: jlright vastus lateralis;10:33 Follow up: Response: Anxiety ppcvmvzdvoj140:23 Drug: diphenhydrAMINE 50 mg [diphenhydramine 50 mg/mL injection solution(1 mL)] Route: jlIM; Site: right vastus lateralis;10:33 Follow up: Response: Anxiety eiuplzgiqok318:24 Drug: Geodon 20 mg [ziprasidone 20 mg/mL (final concentration)intramuscular solution jl(1 mL)] Route: IM; Site: right vastus lateralis;10:33 Follow up: Response: Anxiety wzkbkttcpvs5Tqrbmch:18:06 Disposition: Admitted to Hvfjsvi381:06 Condition: stable, Provider notified of abnormal vital signs.18:06 Discharge instructions given to patient, Instructed on need for admit,Demonstratedunderstanding of instructions.18:06 Discharge Assessment: Patient verbalized understanding of dispositioninstructions.Patient has no functional deficits.18:33 Decision to Hospitalize by Provider.se18:53 Patient left the ED.jlSignatures:Vincenzo Luis RN RN fbgElliott, Suzanne, MD MD seHowland, Todd, MD MD rw6Rvijo, Fortunato, RN RN lg7QufmtfpuAmi arthur, RN RN bj5CbJfwnjBertha Collire, RN JOSE LUIS jlBreonna Marie, RN JOSE LUIS ep9Qjsnx, Danae, RN RN xt4Iwqsu, Vani Styles hfCorrections: (The following items were deleted from [...] off of the bed bysticking her head qr9oysogki the guard rail, very aggressive and tried to hurt staff, called staff"dumbsluts" and told us to "go kill ourselves". Notified, placed in 4 pointrestraints.tp2 Name Value Range Interpretation Code Description Data Stephanie rce(s) Supporting Document(s) ID Date Data Source [id number] 03/28/2021 12:00:00 AM EDT [facility] Name Value Range Interpretation Code Description Data Stephanie rce(s) Supporting Document(s) Sodium 139 mmol/L 136-145 Normal (applies to non-numeric resul ts) [facility] Potassium 3.5-5.1 Below low normal [facility] spital Chloride 105 mmol/L 98-107 Normal (applies to non-numeric resul ts) [facility] Carbon Dioxide CO2 21-32 Normal (applies to non-numer ic results) [facility] Anion Gap 5.0-16.0 Normal (applies to non-numeric resul ts) [facility] BUN 21 mg/dL 7-18 Above high normal [facility] ospital Creatinine,Serum 0.7-1.2 Normal (applies to non-numeric results) [facility] GFR >60 Normal (applies to non-numeric results) [facility] Glucose Level 137 mg/dL 60-99 Above high normal [facility] Reference range is only applicable when patient is fasting Note the following drug interference: Sulfasalazine Sulfapyridine Can see falsely depressed Can see falsely elevated result with up to 17% results with up to 11% decrease in measurement increase in measurement Recommend patients be collected for this test prior to administration of either drug. Calcium 8.5-10.1 Below low normal [facility] spital Bilirubin,Total 0.1-1.9 Normal (applies to non-numeric results) [facility] SGOT(AST) 20 U/L 15-37 Normal (applies to non-numeric resul ts) [facility] Note the following drug interference: Sulfasalazine Sulfapyridine Can see falsely depressed Can see falsely elevated result with up to 10% results with up to 10% decrease in measurement increase in measurement Recommend patients be collected for this test prior to administration of either drug. SGPT(ALT) 48 U/L 12-78 Normal (applies to non-numeric resul ts) [facility] Note the following drug interference: Sulfasalazine Sulfapyridine Can see falsely depressed Can see falsely elevated result with up to 29% results with up to 10% decrease in measurement increase in measurement Recommend patients be collected for this test prior to administration of either drug. Alkaline Phosphatase 114 U/L 38-126 Normal (applies to non-num deena results) [facility] can increase Alkaline Phosp le vels up to 2 times the normal adult value. Normal values for children and adolescents are 2 to 3 times the normal adult value. Total Protein 6.0-8.2 Normal (applies to non-numeric re sults) [facility] Albumin Level 3.4-5.0 Normal (applies to non-numeric re sults) [facility] ID Date Data Source [id number] 03/28/2021 12:00:00 AM EDT [facility] Name Value Range Interpretation Code Description Data Stephanie rce(s) Supporting Document(s) Troponin I 0.000-0.056 Normal (applies to non-numeric resu lts) [facility] ID Date Data Source [id number] 03/28/2021 12:00:00 AM EDT [facility] Value Range Interpretation Code Description Data Stephanie rce(s) Supporting Document(s) Magnesium 1.8-2.4 Normal (applies to non-numeric resul ts) [facility] ID Date Data Source [id number] 03/28/2021 12:00:00 AM EDT [facility] Value Range Interpretation Code Description Data Stephanie rce(s) Supporting Document(s) Salicylate 2.8-20.0 Below low normal [facility] ID Date Data Source [id number] [facility] Interpretation Code Description Data Stephanie rce(s) Supporting Document(s) Acetaminophen 10.0-30.0 Below low normal [facility] ID Date Data Source [id number] 03/27/2021 11:58:[facility] Value Range Interpretation Code Description Data Stephanie rce(s) Supporting Document(s) Ethanol Less than 10.0 Normal (applies to non-numeric r esults) [facility] ID Date Data Source [id number] 03/27/2021 11:36:00 PM EDT [facility] Name Value Range Interpretation Code Description Data Stephanie rce(s) Supporting Document(s) White Blood Count 3.5-10.5 Normal (applies to non-numeri c results) [facility] Red Blood Count 3.90-5.00 Normal (applies to non-numeric results) [facility] Hemoglobin 12.0-15.5 Normal (applies to non-numeric resul ts) [facility] Hematocrit 34.9-44.5 Normal (applies to non-numeric resul ts) [facility] Mean Corpuscular Volume 81.2-95.1 Normal (applies to non- numeric results) [facility] Mean Corpuscular Hgb 25.6-32.2 Normal (applies to non-num deena results) [facility] Mean Corpuscular Hgb Conc 32.0-36.0 Normal (applies to no n-numeric results) [facility] Red Cell Distribution Width 11.9-15.5 Normal (appli es to non-numeric results) [facility] Platelet Count 254 x10 3/uL 150-450 Normal (applies to non-numeric results) [facility] Mean Platelet Volume 9.4-12.4 Normal (applies to non-num deena results) [facility] Neutrophils% (Auto) 31.0-71.0 Normal (applies to non-nume frank results) [facility] Lymphocytes% (Auto) 20.0-55.0 Normal (applies to non-nume frank results) [facility] Monocytes% (Auto) 4.0-12.0 Normal (applies to non-numeri c results) [facility] Eosinophils% (Auto) 1.0-8.0 Normal (applies to non-nume frank results) [facility] Basophils% (Auto) 0.0-2.0 Normal (applies to non-numeri c results) [facility] Immature Granulocytes% (Auto) 0.0-2.0 Normal (alexander lies to non-numeric results) [facility] Neutrophils# (Auto) 1.50-6.20 Normal (applies to non-nume frank results) [facility] Lymphocytes# (Auto) 1.20-4.00 Normal (applies to non-nume frank results) [facility] Monocytes# (Auto) 0.00-0.90 Normal (applies to non-numeri c results) [facility] Eosinophils# (Auto) 0.00-0.50 Normal (applies to non-nume frank results) [facility] Basophils# (Auto) 0.00-0.20 Normal (applies to non-numeri c results) [facility] Immature Granulocytes# (Auto) 0.00-7.00 No rmal (applies to non-numeric results) [facility] ID Date Data Source [id number] 03/28/2021 12:21:00 AM EDT [facility] First test? UNKNOWNEmployed in [facility]? UNKNOWNSymptomatic per [facility]? UNKNOWNIf yes date of onset? 03/27/21Hospitalized? UNKNOWNICU? UNKNOWNResident in congregated care? ex intermediate, [facility] UNKNOWN? UNKNOWN Name Value Range Interpretation Code Description Data Stephanie rce(s) Supporting Document(s) SARS-CoV-2 RNA Negative Normal (applies to non-numeric r esults) [facility] Negative results should be treated as pr [...] Certificate of Accreditation. Factsheets for healthcare providers: https://www.fda.gov/media/745388/download Factsheets for patients: https://www.fda.gov/media/406419/download The ID NOW Instrument is a rapid molecular in vitro diagnostic test utilizing an isothermal nucleic acid amplification technology intended for the qualitative detection of nucleic acid from the SARS-CoV-2 viral RNA. THIS IS A STATE REPORTABLE COMMUNICABLE DISEASE. Manual entry verified by Aysha Andrade 03/28/21 0020 ID Date Data Source [id number] 03/28/2021 12:05:00 AM EDT [facility] Name Value Range Interpretation Code Description Data Stephanie rce(s) Supporting Document(s) HCG,Ur Negative Normal (applies to non-numeric results) [facility] ID Date Data Source [id number] 03/27/2021 11:58:00 PM EDT [facility] Name Value Range Interpretation Code Description Data Stephanie rce(s) Supporting Document(s) UDS Benzodiazepines Screen Negative Normal (applies to n on-numeric results) [facility] UDS Cocaine Screen Negative Normal (applies to non-numer ic results) [facility] UDS Ampetamine Screen Negative Normal (applies to non-nu meric results) [facility] UDS Cannabinoids Screen Negative Normal (applies to non- numeric results) [facility] UDS Opiates Screen Negative Normal (applies to non-numer ic results) [facility] UDS Barbiturates Screen Negative Normal (applies to non- numeric results) [facility] Threshold Levels Benzodiazepine 200 ng/mL Cocaine 300 ng/mL Amphetamines 1000 ng/mL Cannabinoids (THC) 50 ng/mL Opiates 300 ng/mL Barbiturates 200 ng/mL All positive findings are presumptive and unconfirmed. Confirmation of positive results are performed only at request of provider. Unconfirmed results must not be used for non-medical purposes (i.e. preemployment and legal purposes) ID Date Data Source [id number] 03/27/2021 11:37:00 PM EDT [facility] Collected By: Nurse Name Value Range Interpretation Code Description Data Stephanie rce(s) Supporting Document(s) Color,Urine Colorl-Dk Y Normal (applies to non-numeric res ults) [facility] Clarity,Urine Clear Normal (applies to non-numeric re sults) [facility] Specific [place],Urine 1.005-1.030 [facility] pH,Urine 5.0-8.0 Normal (applies to non-numeric resul ts) [facility] Protein,Urine Negative Normal (applies to non-numeric re sults) [facility] Glucose,Urine Negative Normal (applies to non-numeric re sults) [facility] Ketones,Urine Negative Normal (applies to non-numeric re sults) [facility] Blood,Urine Negative Normal (applies to non-numeric resu lts) [facility] Bilirubin,Urine Negative Normal (applies to non-numeric results) [facility] Urobilinogen,Urine 0.2-1.0 Normal (applies to non-numer ic results) [facility] Leukocyte Esterase,Urine Negative Normal (applies to non -numeric results) [facility] Nitrite,Urine Negative Normal (applies to non-numeric re sults) [facility] ID Date Data Source [id number] 03/27/2021 10:35:00 PM EDT [facility] Name Value Range Interpretation Code Description Data Stephanie rce(s) Supporting Document(s) Respiratory specimen severe acute respir atory syndrome coronavirus 2 (SARS-CoV-2) RNA Negative (qualifier value) [facility] and reported by . ID Date Data Source [id number] 03/25/2021 09:40:00 PM EDT [facility] Name Value Range Interpretation Code Description Data Stephanie rce(s) Supporting Document(s) Respiratory specimen severe acute respir atory syndrome coronavirus 2 (SARS-CoV-2) RNA Negative (qualifier value) [facility] This lab was ordered by [place] Stella heaton and reported by . ID Date Data Source [id number] 03/25/2021 10:10:00 PM EDT [facility] Collected By: Nurse Initials: santosh Time Collected: 2142 Collected By: Nurse Initials: cs Time Collected: 2142 Collected By: Nurse Initials: cs Time Collected: 2142 Name Value Range Interpretation Code Description Data Stephanie rce(s) Supporting Document(s) Color,Urine Colorl-Dk Y Normal (applies to non-numeric res ults) [facility] Clarity,Urine Clear Normal (applies to non-numeric re sults) [facility] Specific [place],Urine 1.005-1.030 [facility] pH,Urine 5.0-8.0 Normal (applies to non-numeric resul ts) [facility] Protein,[facility]rine [facility] Glucose,Urine Negative Normal (applies to non-numeric re sults) [facility] Ketones,Urine Negative Normal (applies to non-numeric re sults) [facility] Blood,Urine Negative Normal (applies to non-numeric resu lts) [facility] Bilirubin,Urine Negative [facility] Urobilinogen,Urine 0.2-1.0 Normal (applies to non-numer ic results) [facility] Leukocyte Esterase,Urine Negative Normal (applies to non -numeric results) [facility] Nitrite,Urine Negative Normal (applies to non-numeric re sults) [facility] ID Date Data Source [id number] 03/25/2021 10:10:00 PM EDT [facility] Collected By: Nurse Initials: cs Time Collected: 2142 Collected By: Nurse Initials: cs Time Collected: 2142 Collected By: Nurse Initials: cs Time Collected: 2142 Name Value Range Interpretation Code Description Data Stephanie rce(s) Supporting Document(s) RBC,Urine None Seen [facility] WBC,Urine None Seen [facility] Casts,Urine None Seen Normal (applies to non-numeric resu lts) [facility] Epithelial Cells,Urine None - Few Normal (applies to non-n umeric results) [facility] Squamous Cells,Urine None Seen [facility] Bacteria,Urine None Seen [facility] ital ID Date Data Source [id number] 03/25/2021 10:10:00 PM [facility] Collected By: Nurse Initials: cs Time Collected: 2142 Collected By: Nurse Initials: cs Time Collected: 2142 Collected By: Nurse Initials: cs Time Collected: 2142 Name Value Range Interpretation Code Description Data Stephanie rce(s) Supporting Document(s) HCG,Ur Negative Normal (applies to non-numeric results) [facility] This is a Corrected Result --- 03/25/212206 --- Ur HCG previously reported as: Negative ID Date Data Source [id number] 03/25/2021 10:04:00 PM [facility] Name Value Range Interpretation Code Description Data Stephanie rce(s) Supporting Document(s) SARS-CoV-2 RNA Negative Normal (applies to non-numeric r esults) [facility] Negative results should be treated as pr [...] Certificate of Accreditation. Factsheets for healthcare providers: https://www.fda.gov/media/964048/download Factsheets for patients: https://www.fda.gov/media/045072/download The ID NOW Instrument is a rapid molecular in vitro diagnostic test utilizing an isothermal nucleic acid amplification technology intended for the qualitative detection of nucleic acid from the SARS-CoV-2 viral RNA. THIS IS A STATE REPORTABLE COMMUNICABLE DISEASE. Manual entry verified by Rachel Leslie 03/25/212202 ID Date Data Source [id number] 03/25/2021 10:04:00 PM EDT [facility] Value Range Interpretation Code Description Data Stephanie rce(s) Supporting Document(s) UDS Benzodiazepines Screen Negative Normal (applies to n on-numeric results) [facility] UDS Cocaine Screen Negative Normal (applies to non-numer ic results) [facility] UDS Ampetamine Screen Negative Normal (applies to non-nu meric results) [facility] UDS Cannabinoids Screen Negative Normal (applies to non- numeric results) [facility] UDS Opiates Screen Negative Normal (applies to non-numer ic results) [facility] UDS Barbiturates Screen Negative Normal (applies to non- numeric results) [facility] Threshold Levels Benzodiazepine 200 ng/mL Cocaine 300 ng/mL Amphetamines 1000 ng/mL Cannabinoids (THC) 50 ng/mL Opiates 300 ng/mL Barbiturates 200 ng/mL All positive findings are presumptive and unconfirmed. Confirmation of positive results are performed only at request of provider. Unconfirmed results must not be used for non-medical purposes (i.e. preemployment and legal purposes) ID Date Data Source [id number] 03/25/2021 09:47:00 PM EDT [facility] Name Value Range Interpretation Code Description Data Stephanie rce(s) Supporting Document(s) Ethanol Less than 10.0 Normal (applies to non-numeric r esults) [facility] ID Date Data Source [id number] 03/25/2021 09:17:00 PM EDT [facility] Name Value Range Interpretation Code Description Data Stephanie rce(s) Supporting Document(s) White Blood Count 3.5-10.5 Normal (applies to non-numeri c results) [facility] Red Blood Count 3.90-5.00 Normal (applies to non-numeric results) [facility] Hemoglobin 12.0-15.5 Normal (applies to non-numeric resul ts) [facility] Hematocrit 34.9-44.5 Normal (applies to non-numeric resul ts) [facility] Mean Corpuscular Volume 81.2-95.1 Normal (applies to non- numeric results) [facility] Mean Corpuscular Hgb 25.6-32.2 Normal (applies to non-num deena results) [facility] Mean Corpuscular Hgb Conc 32.0-36.0 Normal (applies to no n-numeric results) [facility] Red Cell Distribution Width 11.9-15.5 Normal (appli es to non-numeric results) [facility] Platelet Count 264 x10 3/uL 150-450 Normal (applies to non-numeric results) [facility] Mean Platelet Volume 9.4-12.4 Normal (applies to non-num deena results) [facility] Neutrophils% (Auto) 31.0-71.0 Normal (applies to non-nume frank results) [facility] Lymphocytes% (Auto) 20.0-55.0 Normal (applies to non-nume frank results) [facility] Monocytes% (Auto) 4.0-12.0 Normal (applies to non-numeri c results) [facility] Eosinophils% (Auto) 1.0-8.0 Normal (applies to non-nume frank results) [facility] Basophils% (Auto) 0.0-2.0 Normal (applies to non-numeri c results) [facility] Immature Granulocytes% (Auto) 0.0-2.0 Normal (alexander lies to non-numeric results) [facility] Neutrophils# (Auto) 1.50-6.20 Normal (applies to non-nume frank results) [facility] Lymphocytes# (Auto) 1.20-4.00 Normal (applies to non-nume frank results) [facility] Monocytes# (Auto) 0.00-0.90 Normal (applies to non-numeri c results) [facility] Eosinophils# (Auto) 0.00-0.50 Normal (applies to non-nume frank results) [facility] Basophils# (Auto) 0.00-0.20 Normal (applies to non-numeri c results) [facility] Immature Granulocytes# (Auto) 0.00-7.00 No rmal (applies to non-numeric results) [facility] ID Date Data Source [id number] 03/25/2021 09:55:00 PM EDT [facility] Name Value Range Interpretation Code Description Data Stephanie rce(s) Supporting Document(s) Sodium 141 mmol/L 136-145 Normal (applies to non-numeric resul ts) [facility] Potassium 3.5-5.1 Normal (applies to non-numeric resul ts) [facility] Chloride 106 mmol/L 98-107 Normal (applies to non-numeric resul ts) [facility] Carbon Dioxide CO2 21-32 Normal (applies to non-numer ic results) [facility] Anion Gap 5.0-16.0 Normal (applies to non-numeric resul ts) [facility] BUN 12 mg/dL 7-18 Normal (applies to non-numeric results) [facility] Creatinine,Serum 0.7-1.2 Normal (applies to non-numeric results) [facility] GFR >60 Normal (applies to non-numeric results) [facility] Glucose Level 96 mg/dL 60-99 Normal (applies to non-numeric re sults) [facility] Reference range is only applicable when patient is fasting Note the following drug interference: Sulfasalazine Sulfapyridine Can see falsely depressed Can see falsely elevated result with up to 17% results with up to 11% decrease in measurement increase in measurement Recommend patients be collected for this test prior to administration of either drug. Calcium 8.5-10.1 Normal (applies to non-numeric resul ts) [facility] Bilirubin,Total 0.1-1.9 Normal (applies to non-numeric results) [facility] SGOT(AST) 27 U/L 15-37 Normal (applies to non-numeric resul ts) [facility] Note the following drug interference: Sulfasalazine Sulfapyridine Can see falsely depressed Can see falsely elevated result with up to 10% results with up to 10% decrease in measurement increase in measurement Recommend patients be collected for this test prior to administration of either drug. SGPT(ALT) 52 U/L 12-78 Normal (applies to non-numeric resul ts) [facility] Note the following drug interference: Sulfasalazine Sulfapyridine Can see falsely depressed Can see falsely elevated result with up to 29% results with up to 10% decrease in measurement increase in measurement Recommend patients be collected for this test prior to administration of either drug. Alkaline Phosphatase 126 U/L 38-126 Normal (applies to non-num deena results) [facility] can increase Alkaline Phosp le vels up to 2 times the normal adult value. Normal values for children and adolescents are 2 to 3 times the normal adult value. Total Protein 6.0-8.2 Normal (applies to non-numeric re sults) [facility] Albumin Level 3.4-5.0 Normal (applies to non-numeric re sults) [facility] ID Date Data Source [id number] 03/25/2021 09:55:00 PM EDT [facility] Name Value Range Interpretation Code Description Data Stephanie rce(s) Supporting Document(s) Troponin I 0.000-0.056 Normal (applies to non-numeric resu lts) [facility] ID Date Data Source [id number] 03/25/2021 09:55:00 PM EDT [facility] Name Value Range Interpretation Code Description Data Stephanie rce(s) Supporting Document(s) Magnesium 1.8-2.4 Normal (applies to non-numeric resul ts) [facility] ID Date Data Source [id number] 03/25/2021 09:55:00 PM EDT [facility] Value Range Interpretation Code Description Data Stephanie rce(s) Supporting Document(s) Salicylate 2.8-20.0 Below low normal [facility] ID Date Data Source [id number] 03/25/2021 09:55:00 PM EDT [facility] Name Value Range Interpretation Code Description Data Stephanie rce(s) Supporting Document(s) Acetaminophen 10.0-30.0 Below low normal [facility] ID Date Data Source [id number] 03/25/2021 07:15:08 AM EDT [facility] Name Value Range Interpretation Code Description Data Stephanie rce(s) Supporting Document(s) Discharge Summary [facility] EQCVIc9kFnQKXoNi74/EJBahGRFhg6OnBOmkFFy1ONikRSCqX3XqIGY9uT5iANG9HVeXGlHtWoBdEWC2 lbm [file] ltSU9L4yjohHKuQAwQUXx++/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//vz1MxeaQeKbcwWrMQdoHgi/kC5OQ5Mla5UAC/WOIEjGslPHMFZG6 [file] [id number]HJPh= ID Date Data Source [id number] 03/24/2021 09:16:00 AM EDT [facility] Exam Number: [id number] Reported By: - SHIVAM OSCAR MD Signed By: SHIVAM OSCAR MD Name Value Range Interpretation Code Description Data Stephanie rce(s) Supporting Document(s) ID Date Data Source [id number] 03/21/2021 04:51:30 PM EDT [facility] Name Value Range Interpretation Code Description Data Stephanie rce(s) Supporting Document(s) History and Physical [facility] BIMGZy3oCqGZLtXx57/VNNkkXUFxv5IeSBlzHYl8TTuxMSNtU5IvAXS8xI5pFLB7UQjNFfTtOhAbQRCb lbm [file] AgICAgICAgICAgICAgICAgICAgICAgICAgICAgICAgICAgICAgICAgICAgICAgICAgICAgICAgICAgIC FdCHMcNP8RXYGzWLPeCYLzLFTqZNJaIQNkKHIzQHWs ICAgICAgICAgICAgICAgICAgICAgICAgICAgICAgICAgICAgICAgICAgICAgICAgICAgICAgICAgICAg BPApZTGoZGQfNJYiYFQqWS8PGUBkCOPqDSDqKTYmRBLzGDWgLHTjWSFtCQDqATZnMUVrEGDeBNNvUCGw ICAgICAgICAgICAgICAgICAgICAgICAgICAgICAgIC JzLHKeMLSbWKLnDCQmLMTxCSRlHKHgSECyAP0CPCXqAXWcUSRdQQSsBJNuPERtNQLaWBUhPPJpTBLfOG AgICAgICAgICAgICAgICAgICAgICAgICAgICAgICAgICAgICAgICAgICAgICAgICAgICAgICAgICAgIC XzKALrQYCxBB4WDUNdVNMeNKNwSVMiZNItECPmYKPg ICAgICAgICAgICAgICAgICAgICAgICAgICAgICAgICAgICAgICAgICAgICAgICAgICAgICAgICAgICAg IXIpFBByNRXmPBHfOEPqSCIoYH3RVNOzYFNmJQXlVUAlNUUiOMAoUVNnNEYlGOBsEVOgOSItCSBcCXRy ICAgICAgICAgICAgICAgICAgICAgICAgICAgICAgIC SeRQGeXQHoJSSyJIYdFEYdWECmLFMgJCVpKWVqEI3GIBEjCUSnZAYaFLYdDHCeFVTzVBCcSMHnEAYoES AgICAgICAgICAgICAgICAgICAgICAgICAgICAgICAgICAgICAgICAgICAgICAgICAgICAgICAgICAgIC ChHUKsGDJaNJToSQ8BVNQnCEClRYNxSOMqKWUxFPGl ICAgICAgICAgICAgICAgICAgICAgICAgICAgICAgICAgICAgICAgICAgICAgICAgICAgICAgICAgICAg CBEtVVZbNWKfTOTlIRDnUZSvZJXyKH2VHPRyZYTrFWSdQZTnCGXwMFJwKWLsFHBlNAHgLSRjXBTrKEEx ICAgICAgICAgICAgICAgICAgICAgICAgICAgICAgIC NzYNOdTLCnTZUgCFKrPQHrPOEfLBLpGEPyEBXmNVXeSN9AFQAeIZJpEEAiATTzEAMqKAAhZLVcKJAaNE AgICAgICAgICAgICAgICAgICAgICAgICAgICAgICAgICAgICAgICAgICAgICAgICAgICAgICAgICAgIC XiFCHhKUQyPWIgXTHrRP2FIY66wUInu3L4STMgPS4c dyc/Hx3EKQsmqmGwoFFtYG6BUaVfXT0bvh2CRzZqDN1zgu9DRQdWOpVyR2H2dBZgQCTuEQSFGqKdM57i CCuuWf38HZhuLLPqBjUpMKe1Si0YQxMhE6foYZZrQxO3QMAzMeC3BWZqPhY8IDJrItJnFMGoPCRvSKAf TZJXUS3TFiKeF5EtaA59QMFUSg0+DQplbmRvYmoNCj L6ZMHie3HfKGm4MO9BPKSuJbfrd3RcTnziZZHOVImfWN9RYSF7OKF0GYEbIx2WJQJtG049pkSlOZ1YQp 9PYtHoGX7vsi7QEmkeIIWkLqsFZbo2PNsnXC7EpHDuWMbQUwJqTynwIKCttLUSIPVbDOEceGvuVRWsZP MkEB6dTI0tNBOeLHHoRbY1PZLUZW7AXALiNOKhiJAi XEVfFPHHXN4XFHgjVUN4LDKzgwKruEMhHMfmNF3MDQVkfqZxRcCuSOJOQEv+Ur2OZC0xv1UpFCfdGQQg UR3iep3IRHoDKqQzG3A9oGMoW4F1PFdtXz3TAAGgWRTjKjBxLZDZLXozJS3JUG1iwbR4SK2SvPIbRFIv YLMwgSQpNZf9W06qnEPnDTcqYC9SJMN+Dillon+Pg0KIC LgKDAzOHYiPoUqZPGGOsZrJ7KuO1YNy8IbT2OhDK55pVyogiNyKIlzUE9YAY3rZVCrILONYU6SbLVclC 8tdxWoCwIwUGVSTgDdQ78xrYNbCXWaTIX2DFOqDv8TZLUmA6TnynRynMutduGlGGEjSYXJVO2MQQhaxm FjjGClmNzrVK03xPdvWK4BTi2FMzKtXH2xud6BiTUx Yb7TEXBlUM5BZXPkSPTtYUKwAVX8XNDnHfCfUWdeHGPfSQMxAXA9QVOmUWDhFS9BHyKnRWXgNlAjREti ZEXoCNFjbb9MVYMoOKFhDbU7UGMtYGJsHXDcLVtaNZQdGIRfAJC7HWHvZUWdHP1NFoGcGJDlVEVqNKzx MHAbAHZmhb3PFLEdJHJkGfEmJPJqJZAdJIGqEShoZO NvXAZ3BKl7OFLsDDOvGD4IGvAyZTUxWGV8SKJpSLHpOHQktk9VKTFkZHWiPMSpPRVjMRDrCFLiIDrdOH HeIRL0FgD1BCJgTNIqCO7TGrLzTVXyTBU5ZUDaITQlYGTmuy1BMAMjUTTlVvnaYPLbSZAvMRKxYAexME WrCNO1JQQ9NIZjCUQiOZ8KCyKfQOObQZCaQCLuOGDl RBOjbw1ZEQJpPHPpOsKiXMFuNMRmFAVtMFuwIZJkUFQ1HIo8YXFyFQIbHZ4ZFpIpEMPrNFX0FKLkNDCw OFEoph4EWOGsZGZhObLoRJAaZGUsYOHyQMqeKEPaQSN6CILcULDvNEZtLP0WZfOpACCbVEsaSgjeQDVv TKIapk7QWIJcQSRsUHy2QMXsWRJcSUXvQYccUYZaBY L3LLy4PZBpYYDdJC0DPkRzUWQkGRugHyjbOBJdCJYavh3SVDJoXLBpYIb6RVItUSHqFBVxMQtfJYAmRM SfICqiEQYrZWKrBL5KMjSoIZEbYrZkJRRdUBIoXRRpvm4SPZNnTRRbCNRvMHSbNPKrCXBpYBwrBGGgAF YtBhK7QHSuCGCfRB7PHjElVTMjPsZ9XEDpBBCsTVPy xe7NEHUyMEByIbd4YLWrFFWcUEJqSFzsTDLaRBFrPMe7YAXtNZZeDX1QGxOxJBPbQqJ0MMkgWLQsXSTe cf0FIAYsYGTmTEFvZiMaZMWoOHGwTXdyRDIoUTI4Mrr5NURnZVGsHL4UFlSmWBGaTpM1FNOxADIkUTRw jk7LGKZaRVLbUtDaCBBhFZMjVJHgTYpzINQlXDW7Am l0OINoQFFhLE7ZAcUvHOYrUcW3LGGlSDIwQYOgdh0ReXWhjSndid7HHQlXLf4ZrNlePWW0TAzxEs8zsU DaCVNrXOOAJv7ZhkKyALLmYNTDDVycVWPmREclYbyaURNyIhX1CAEmTORcILP9NtA9CyscKNG4GJWmXv B9ZIAbEfLqYTW3VaG5QpA7ZgRaDpCuKoU5BTIkNJWh NWE+EI5rSTj+Um1Ut0CubdL9xqNiMZyhBtP2UB5XQXJAZ3QFYz== ID Date Data Source [id number] 03/21/2021 04:41:32 PM EDT [facility] Name Value Range Interpretation Code Description Data Stephanie rce(s) Supporting Document(s) History and Physical [facility] BWUZPx2eMuHBVlPt29/QAWozJXTyk1WkQGowLZw3BRvqWYDuD6NvPZD5gX9qBQG4TJgXKiPsQtSzWAXx lbm [file] thu5ZT/R56MzwexxZKA69PYxC/ODV+talent sourcing specialist+jCU7trTKJ [file] E+DQogICAgICAgICAgICAgICAgICAgICAgICAgICAgICAgICAgICAgICAgICAgICAgICAgICAgICAgIC AgICAgICAgICAgICAgICAgICAgICAgICAgICAgICAg ICAgICAgICAgICAgDQogICAgICAgICAgICAgICAgICAgICAgICAgICAgICAgICAgICAgICAgICAgICAg ICAgICAgICAgICAgICAgICAgICAgICAgICAgICAgICAgICAgICAgICAgICAgICAgICAgICAgDQogICAg ICAgICAgICAgICAgICAgICAgICAgICAgICAgICAgIC AgICAgICAgICAgICAgICAgICAgICAgICAgICAgICAgICAgICAgICAgICAgICAgICAgICAgICAgICAgIC AgICAgDQogICAgICAgICAgICAgICAgICAgICAgICAgICAgICAgICAgICAgICAgICAgICAgICAgICAgIC AgICAgICAgICAgICAgICAgICAgICAgICAgICAgICAg ICAgICAgICAgICAgICAgDQogICAgICAgICAgICAgICAgICAgICAgICAgICAgICAgICAgICAgICAgICAg ICAgICAgICAgICAgICAgICAgICAgICAgICAgICAgICAgICAgICAgICAgICAgICAgICAgICAgICAgDQog ICAgICAgICAgICAgICAgICAgICAgICAgICAgICAgIC AgICAgICAgICAgICAgICAgICAgICAgICAgICAgICAgICAgICAgICAgICAgICAgICAgICAgICAgICAgIC AgICAgICAgDQogICAgICAgICAgICAgICAgICAgICAgICAgICAgICAgICAgICAgICAgICAgICAgICAgIC AgICAgICAgICAgICAgICAgICAgICAgICAgICAgICAg ICAgICAgICAgICAgICAgICAgDQogICAgICAgICAgICAgICAgICAgICAgICAgICAgICAgICAgICAgICAg ICAgICAgICAgICAgICAgICAgICAgICAgICAgICAgICAgICAgICAgICAgICAgICAgICAgICAgICAgICAg DQogICAgICAgICAgICAgICAgICAgICAgICAgICAgIC AgICAgICAgICAgICAgICAgICAgICAgICAgICAgICAgICAgICAgICAgICAgICAgICAgICAgICAgICAgIC AgICAgICAgICAgDQogICAgICAgICAgICAgICAgICAgICAgICAgICAgICAgICAgICAgICAgICAgICAgIC AgICAgICAgICAgICAgICAgICAgICAgICAgICAgICAg SFWlTOAbVXVaARTeRUBqATOvIQAqVTw1K2ihSBTxWSRuTG9wQNl7Kh5+RMdFGyDnWRC5kpTdvI0VRN6q j6YbYMxvPEWqe5FhMVx0OF8ATMYxFHnaEX9LPRoabi5CFOMxYBDdvHWRl7gdRcWuQFL6WPZhDvzyDV9D OHOmE4rxfdHtPUTeFDOEJHxaYJMBABmbENHTVTSzRF GqElXiTsGdEZSjPDVkXTXHWBB8LIAfNaCgDHGtINCpAzVyUYEXWCU9FMWsLgReRSnvZZ5Rb0JgoCSiHH 5RFb6JTmVcKN5sgl2FZNJtIEZzGddCEbk9HDpkND0JhTGbqWM2VLKiGRCABrBjO9jjy4LwUNPkLMGKVG goFH8An6TrkSUlEXr+Xy8DJU9ax1KyIJt7WBBiKT7n xm6CZZzXQeKzS5IaiPrrQUwcTCQhcICEh0mntoYQJA0pkILwNIF8VUzxLOLyHoTkJMFhXjgoWNLSNAdS MjNxO9Tdm3GcOhU2KRKqArGjWJipJITkJjR1LY86hOoqPU2TSUDfORUjVG03LVMvGTKsGv3FUn0XHhLv ML2cnj7CAxEpSHQgRynQTys8PCryCI1CaWMvIZ8Urq 0usGJcF7RmuJciIEWuAPixvcAvLd0iVIXnZVodDUEsAP8mI0xjE8ccE6TyBVYOExBsI1AdL4RpFjDlME RjQlJxRHIiEAV0EXRTNuFdA3PaVAxvSjYoKBBTWW3SJiypXRXzZ4KIAEmMGI7BP1oEQ0ZTGF4KPRsZAf zJSyOKI7OBL0JFV85XFdCgNX3+FC4IAv6RTnIeWT4s qt3CJVLnGBJeKrrEZvn3VGzbZN7TeUEqF0EtlFUgz6dQEdPgH5DTOHT9FZObIx4CKZXxEyRvQLLbZQrl MN0vHTInCHPNvGxydsW5CN3KLM5vaxRxND7JKkCjZt5vDu3OIvBkJ1KuN5WoTMRcIJIEHYjvAC2COBcc GH1iNN9Sg6NWhNPfoO2rau2VSGLoAKTbFjozik0FKr hzV2B5bNxpMYVcNGSeLRRJJUfiAK6MZKRtVAE7XNO4QSEjNHYWWuVgN66hKV8ZX2Hjv31kYiL4PFOkRf EfOKxvJW23mHadjbOoaNYvaLldMF9NTl2+DQplbmRvYmoNCnhyZWYNCjAgNTMNCjAwMDAwMDAwMDAgNj B7RpKqFu1WBIXxTEYdDUCnZyUiKUJiQDKeTCukAXAw UUW4XiA3FMBdIFZbJK9LGaEuOQIwCDoaLISbJOQuDENfve9QWNJyCDCqFLW1KdReJFOiHBGlLDvhIMYi LCX0XoU5FEYvYWEcUU8KNqSeLCPkHCA0HRRwKIDjMUYtio5AYEPuIUMkGaz2SKIkQDBcJNCkKZdoJBKh SEP2GBu4OYOsASYdTR2TPgCzBZVcDYX0HvuuNKRfFV Crlf3SZNZvKREjDXz1CQGeUYLqAMCiUTqrECIpQCD0EcE3NENcTFEkXW7UGvWzSDElCTA8ZoKpYYJxQT Abvq4YQVVtDDZoXgS3CpQyHXWfNOMzDYcyGMOmEKT1BtE0BWLmFULtRY0RLyQkBUWoJnS7OaPyPFMjZJ Mffx7YIQKgYDDxWRF5ESAxKQNtHGDtAFpvNJDbALO0 HgF2KZCrUNHkUY0OGaBtMUFeFmK8CrIlWVJhYKFdac9RSWJbGYYsMJEhUtOyBDXvHJRxPEmbIKSmSUY3 SbN6HMUwUHVtQC5ZUqAyYIYkRgU1CxScTQAfFCPbfk9YHEXoZNY3NELbWIHuJBKaNNOlIBwgTEQlHYFw XFs1BOQhBOGnBC7BRlZkINXcBlNnVIHjBXJnESBkqp 0LYEAkHTBwBYEfJYBiWKRyRUGhPVinYBFoBVT2LDP3BJQpMMIbYI3OJzHuAGFgJqBlWnAbOPEfPEMjec 3HJMZeOLVlSWE3BIJyHBUfLNZwMCqpZKJiOAM0SCU4VEJaAOUzKC6DQnGeVVRqXjZ1VIGxZZZtWMCune 3PIVPjPWMtSbh6KTGgJIKvPCTyABlyTIJzCNT3HUH9 ORDbMUSpUC3VBhNjVQQdPbywNLPrBYXaMSUuwb8TYJAbBEOdUTCyUSOjDARgVVAkLZdfCPLfZSJ4DAf6 ECJvQIHdCI7EHnNhLRTiEeq8NTVdUETqSESnme3IDEGrBQNlREB2LbBmFBEvKZIpSHmjHPPkPZBdDJFw EVUaKJXtGA1MOnRmUAKhQLK5ExYxZQUjKDNewt9MYG RpKLU7TDc2WCByAZOzQBJfOVlySSYvRET1YXAmAOKrHUJjKT3XRfSaNDRmSJMxXcZfNMAeNURioc0YOD OwXRP6DwN8JEJlBSKiJFWiWCkhXYZvPUF5KKf2ZQWsATByLN5IPeTbTXLpRKN1QPskHZByPFYbrz1WRC WrRUO4Gad0SCHaYRPbOZYbUHocPLTpLHN7LQy6NTGb YJKoYQ3RTeBrJZIbZQgrPOYpNONkELGlgv4CVKNeCIM9GxilVZXzBOVyFIXzIEwvINCwCBK3FsHfODSh ZYLgLR1FEoKiKIBlSIvyFBFbTQMfYYIzuf1MQZLhHDF3YWN7ZEReDHKoCDVnMXr1lvLroLBwYJg3BF0P U9AtgzLkRIFVOo3Uo687QVPoCRMyDf8NR5msWw3nNQ YfULLGOq8MQCu7F0EgIEIvKiOxKGrmVGUnBDayHdp0HkG2WmqmBOxvZLV+MEx5YNJ2KdW8EORqOAXhMQ FjLTE6BSdhAGKfA9S1S6D8ZS0hFEYGJg1+WBuhsFCmfKveVQSSRdU1ZTO5BLutAKXRUn5I ID Date Data Source [id number] 03/20/2021 08:10:00 PM EDT [facility] Name Value Range Interpretation Code Description Data Stephanie rce(s) Supporting Document(s) SARS coronavirus 2 RNA [Presence] in Res piratory specimen by [facility] with probe detection NEGATIVE [facility] This lab was ordered by [facility] a nd reported by [facility]. ID Date Data Source [id number] 03/19/2021 10:46:[address] [facility] Name Value Range Interpretation Code Description Data Stephanie rce(s) Supporting Document(s) Consults [facility] HJQTTz2eVhHCGzSr09/KEKnyWDJbd6TwNIzeZIk5QVybBVChJ7NbOTA8bG3iOSO3ZRtQVuFlLvCdKUN0 lbm [file] ICAgICAgICAgICAgICAgICAgICAgICAgICAgICAgIC AgICAgICAgICAgICAgICAgICAgICAgICAgICAgICAgICAgICAgICAgICAgICAgICAgICAgDQogICAgIC AgICAgICAgICAgICAgICAgICAgICAgICAgICAgICAgICAgICAgICAgICAgICAgICAgICAgICAgICAgIC AgICAgICAgICAgICAgICAgICAgICAgICAgICAgICAg ICAgDQogICAgICAgICAgICAgICAgICAgICAgICAgICAgICAgICAgICAgICAgICAgICAgICAgICAgICAg ICAgICAgICAgICAgICAgICAgICAgICAgICAgICAgICAgICAgICAgICAgICAgDQogICAgICAgICAgICAg ICAgICAgICAgICAgICAgICAgICAgICAgICAgICAgIC AgICAgICAgICAgICAgICAgICAgICAgICAgICAgICAgICAgICAgICAgICAgICAgICAgICAgICAgDQogIC AgICAgICAgICAgICAgICAgICAgICAgICAgICAgICAgICAgICAgICAgICAgICAgICAgICAgICAgICAgIC AgICAgICAgICAgICAgICAgICAgICAgICAgICAgICAg ICAgICAgDQogICAgICAgICAgICAgICAgICAgICAgICAgICAgICAgICAgICAgICAgICAgICAgICAgICAg ICAgICAgICAgICAgICAgICAgICAgICAgICAgICAgICAgICAgICAgICAgICAgICAgDQogICAgICAgICAg ICAgICAgICAgICAgICAgICAgICAgICAgICAgICAgIC AgICAgICAgICAgICAgICAgICAgICAgICAgICAgICAgICAgICAgICAgICAgICAgICAgICAgICAgICAgDQ ogICAgICAgICAgICAgICAgICAgICAgICAgICAgICAgICAgICAgICAgICAgICAgICAgICAgICAgICAgIC AgICAgICAgICAgICAgICAgICAgICAgICAgICAgICAg ICAgICAgICAgDQogICAgICAgICAgICAgICAgICAgICAgICAgICAgICAgICAgICAgICAgICAgICAgICAg ICAgICAgICAgICAgICAgICAgICAgICAgICAgICAgICAgICAgICAgICAgICAgICAgICAgDQogICAgICAg ICAgICAgICAgICAgICAgICAgICAgICAgICAgICAgIC AgICAgICAgICAgICAgICAgICAgICAgICAgICAgICAgICAgICAgICAgICAgICAgICAgICAgICAgICAgIC MbKUt2M0ydFJXfVWZdVA2sCNk0Hx5+FWbIDsBxGZP3nmLkiQ7HLZ0mq4YyYSihDLDgy4MbHMq8AO5KTX NdWJfkVH8QUXkgau8PGSIjNCPirVLCz8upNdOnEQM2 DTOmKfbjSK2QPFQwM6cbjjNmVRQyIFHZBW0DAzEkZ1SmwO60FMGEMv4+FZymqkYyAciHZcZ4KSDat1Zl NDm5VT2MYBEbPovbt0FzDEkbYSRDBLbrPR4XKQH8MHF8INZsOw3NUXPfT494vzKhVR8KGf1MRuMtGV8n iv7UGOvrFJSyTzpZVvv3HZkrBP0VgSWiASaHg51ooH i6zyJqhVMCPFzlIKIZRCSwxO3Yl3FuGNZESPDVYTU1EUcyIi0lBEBpTUDsZbBjKNZMGO3GENCxMOIjpB TuOZNjMCCUPU9HAAjfFET4AnrmwpQooMSvOZdwLT0WOHEqrbCyKQzfSOUONHl+Yy9SAO3es6TvUSezAH BkCF8iqw1EPXcFRjCnE7F6yJFtJ6I0EZhmSa2CDHLo ILTvKJGmHRKIZPvyKP8ZRC4ndeJ2VC8NrUBuOXIyNSIjsISvNCc6W06dwHNxXHacXW8CSFV+Dillon+Pg0K ULJdNZNoYCSgRoHmGMIGQyUvX3ZcX1GId7QkP8VbEM76cHtgboYuLRjnLF8AIA1pPBLkBVMAUA7LzBBh pR7qblBvRnEoCTBCLqOxN43cgYDyMHYwPDF5EBCxNd 6XFRVgR4GrjrOkoKfvmiKjTOHrJAHMMB3RRFjlplJhcKCdxRtqDO47kXeoIL4VBy5QQuMfFN0dge3TcZ LzVx7RZXWcOP5BDTLnUTMjLXEtUGG1PORoAbEkNAiyKQNbOYEqXJH8SRVbESJrBR6GHdMzCSFdBBMbOO VvLVQrYFMppj6QAGPlPBBcXntoPmEwSQGzCBSpWFnq TGFlGMCmCGL7DMVrXIRfYH0EJmBpUCEkLBZ9EXHjGKZsZOGvkj1UASRiVZRhPuO6ZALoTGMaQXSmJDno PPWtHEGgGTBkBZDoIZUnKT3CCvPgJGNpRLJaDIRsXPSwVKEggi7QVNFlAFTrIcM0XDVlDKKwAQWoAEog DVZsVQQ4JsU3LVCdKMZfWN5IRhNuKUFiJHH6ZCAhXX ZfCFUxgp1OTNJuPPFzGKssQpXuIEPgVHOnDWjdRHWmKVH2Ckw1ODTuIYReQI0VUmDnZFZlLJY6OTIaTC XpGULwap9STADjVBBuVgQ2MJAxWIPvBAJmMLsgITBqNNB1KMyrWPUvHDNsPI3CYoWaTPVgXLi5JgCiWQ VuUYEfeh8NPJTkBIQhLBAdHGIbIJXeUMNnEDkqRDWi WHP4AAG9XNYlZIXzPB9PCuYcJMwgZZHAJwh5HVziK7w2FPIqEP3VF9Sqb6LiISmoFQVUYXrmQT5qbkDt RVOuFl1NY0vTBln7GaQzQiN4QKu3FWUbGFhrQsw0UrW7IGVzMFF6XSGzAP5zBMTwQgLhXsh3JWi1LZY0 [id number]Jf7KMUG7JP8DHJDGI9TSAq== ID Date Data Source [id number] 03/16/2021 05:01:00 PM EDT [facility] Exam Number: [id number] OF EXAMINATIO N: 03/16/2021 15:29 EDTHISTORY: InjuryTECHNIQUE: [...] rce(s) Supporting Document(s) ID Date Data Source [id number] 03/16/2021 07:16:00 AM EDT [facility] Name Value Range Interpretation Code Description Data Stephanie rce(s) Supporting Document(s) LCOVID-19, CORDELL NEGATIVE [facility] This lab was ordered by [facility] and reported by [facility]. ID Date Data Source [id number] 03/16/2021 08:04:00 AM EDT [facility] Name Value Range Interpretation Code Description Data [facility] rce(s) Supporting Document(s) COVID-19, CORDELL NEGATIVE NEGATIVE [facility] Methodology: Isothermal Nucleic Acid Amp lification [...] Emergency Use Authorization. ID Date Data Source [id number] 03/16/2021 07:54:00 AM EDT [facility] Name Value Range Interpretation Code Description Data [facility] rce(s) Supporting Document(s) ETOH NONE DETECTED N [facility] NONE DETECTED ID Date Data Source [id number] 03/16/2021 07:54:00 AM EDT [facility] Name Value Range Interpretation Code Description Data [facility] rce(s) Supporting Document(s) GLU 98 mg/dL 70-110 [facility] Patients taking Sulfasalazine may have f alsely depressedGlucose levels. Patients taking Sulfapyridine may havefalsely elevated Glucose levels. Patients should be drawnfor Glucose before the initial administration of eitherdrug. BUN 15 mg/dL 7-23 [facility] CRE 0.644 mg/dL 0.500-1.300 [facility] GFR > 60 mL/min [facility] CHLORIDE 109 mmol/L 99-110 [facility] NA 137 mmol/L 136-147 [facility] POTASSIUM 3.7 mmol/L 3.5-5.1 [facility] TCO2 23 mmol/L 20-33 [facility] ANION GAP 8.7 10.0-20.0 [facility] CA 8.5 mg/dL 8.3-10.7 [facility] ALKALINE PHOS 120 U/L 45-117 H [facility] TP 7.2 g/dL 6.0-7.8 [facility] ALB 3.6 g/dL 3.5-5.0 [facility] ESRD Dialysis patient Albumin reference range: 2.9-4.4 g/dL GL 3.6 g/dL 2.3-3.5 [facility] A/G 1.0 1.0-2.5 [facility] T. BILIRUBIN 0.3 mg/dL 0.1-1.1 [facility] The Dimension [place] Total Bilirubin is n ot recommended forpatients undergoing treatment with eltrombopag (Promacta)due to the potential for falsely elevated results. ALTI 51 U/L 6-54 [facility] Patients taking Sulfasalazine and/or Sul fapyridine may havefalsely depressed ALT levels. Patients should be drawn forALT before the initial administration of either drug. AST 27 U/L 6-38 [facility] Patients taking Sulfasalazine and/or Sul fapyridine may havefalsely depressed AST levels. Patients should be drawn forAST before the initial administration of either drug. ID Date Data Source [id number] 03/16/2021 07:30:00 AM EDT [facility] Name Value Range Interpretation Code Description Data Stephanie rce(s) Supporting Document(s) WBC 9.75 x10E3/uL 4.0-10.5 [facility] RBC 4.13 x10E6/uL 4.20-5.40 [facility] Hemoglobin 12.2 g/dL 12.0-16.0 [facility] Hematocrit 36.4 % 37.0-47.0 [facility] MCV 88.1 fL 81.0-99.0 N [facility] MCH 29.5 pg 27.0-31.0 [facility] MCHC 33.5 g/dL 32.7-35.6 [facility] RDW 12.1 % 11.5-14.0 [facility] Platelet count 263 x10E3/uL 150-450 N [facility] ital MPV 9.9 fl 6.9-9.5 H [facility] Neutrophils 70.3 % 34-64 H [facility] Lymphocytes 23.7 % 25-45 L [facility] Monocytes 5.2 % 1.7-10.6 N [facility] Eosinophils 0.3 % 0.4-7.0 L [facility] Basophils 0.2 % 0.1-2.0 N [facility] Imm. Gran. 0.3 % 0.1-2.0 N [facility] Abs. Neutro. 6.85 x10E3/uL 1.2-7.6 [facility] Abs. Lymph. 2.31 x10E3/uL 1.0-3.5 [facility] Abs. Kerr. 0.51 x10E3/uL 0.1-1.0 [facility] Abs. Eosin. 0.03 x10E3/uL 0.1-0.7 [facility] Abs. Baso. 0.02 x10E3/uL 0.0-0.1 [facility] Abs. Imm. Gran. 0.03 x10E3/uL 0.0-0.1 N [facility] spital ANRBC% 0 % 0 [facility] ID Date Data Source [id number] 03/16/2021 07:54:00 AM EDT [facility] Name Value Range Interpretation Code Description Data Stephanie rce(s) Supporting Document(s) ACETAMINOPHEN < 2.0 ug/mL 0-30 [facility] ID Date Data Source [id number] 03/18/2021 09:43:00 AM EDT [facility] MIXED VIC GROWN NO PATHOGENS ISOLATED Name Value Range Interpretation Code Description Data Stephanie rce(s) Supporting Document(s) ID Date Data Source [id number] 03/16/2021 06:30:00 AM EDT [facility] Name Value Range Interpretation Code Description Data Stephanie rce(s) Supporting Document(s) PCP VISTA NEG NEGATIVE [facility] MINIMUM LEVEL OF DETECTION IS 25 ng/ml BENZODIAZEPINES [facility] LEVEL OF DETECTION IS 200 ng/ml COCAINE VISTA NEG NEGATIVE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 ICAgDQogICAgICAgICAgICAgICAgICAgICAgICAgICAgICAgICAgICAgICAgICAgICAgICAgICAgICAg ICAgICAgICAgICAgICAgICAgICAgICAgICAgICAgICAgICAgICAgICAgICAgDQogICAgICAgICAgICAg ICAgICAgICAgICAgICAgICAgICAgICAgICAgICAgIC AgICAgICAgICAgICAgICAgICAgICAgICAgICAgICAgICAgICAgICAgICAgICAgICAgICAgICAgDQogIC AgICAgICAgICAgICAgICAgICAgICAgICAgICAgICAgICAgICAgICAgICAgICAgICAgICAgICAgICAgIC AgICAgICAgICAgICAgICAgICAgICAgICAgICAgICAg ICAgICAgDQogICAgICAgICAgICAgICAgICAgICAgICAgICAgICAgICAgICAgICAgICAgICAgICAgICAg ICAgICAgICAgICAgICAgICAgICAgICAgICAgICAgICAgICAgICAgICAgICAgICAgDQogICAgICAgICAg ICAgICAgICAgICAgICAgICAgICAgICAgICAgICAgIC AgICAgICAgICAgICAgICAgICAgICAgICAgICAgICAgICAgICAgICAgICAgICAgICAgICAgICAgICAgDQ y7U1mhKEAxVIPsFB5qLDp1Uh2+MCaROzWzHRY4eoJwdV6RWT2lb5VbPNqmQMYmq9ZvUEz0JT6KSAVaDG ekCE1YHIzrfi6BEBUhEIZmeOTOl2uvIkLqWQS2PVAw GiwnWU4HLNEyQ0icnxNoJIDwDIIHYJ0SEhNkR1VdxO09SRXWCl2+FJobojXwFmpEBsF3BRUub6ZdZFl5 JJ0OVSPzCwnse9LaJoEwAAKFXXcrMI1YKKX8QQY1XJEkLk1JBOOeH026tlNjZO8XVb9GEfPhBH3wvj3K IiYlQWWbRydFAsq6MHauTD2KuCXhBRmCPIMuAOOhQQ 3gRrzmJDNncHJgNLRFb7I0KFMwKKOAIDN0UBwhTH3iLNQmZALvHkX6MBUMMN0QAHIvXYVpvCNwCCGxLX ESIU1WGYqeFNE4XiewrsQciEDfPNigSH0IJBWqxpNsQgWwCLNXSGc+Bp4MAY8ig6AmCKabLdGcGU1lgt 2VYXbHXkSaG0S8tICaM5B9MRukGb1ZAWPuVYPiJpPx CCQNTXixSM7PTC2nefK2LM4DcORuRZTgYSIdaWSyNDj9W87mtCMnHDriJN1FBSX+Dillon+Dc3YOAHhMCUp KCQbBnBzLTBNTzOxH2UtB4KMe6VwF6QmBW04lOvsnhJqCSttDU1ZKE4vYJTkXNRFCJ5HjCFnrC1qkqPq RQFfGGRORdGlG54jtJCqSZWhFLA6EQKvGz6CDYOmG0 ZtacIipNxnomSxGTFjHLIYQR2IQTypdySjkSVjgLbtFK83zAclER2SPj9ZDpEcVC5trb5JdNUvKr1PVJ BuUY1UPVImKQXzKNUdKOF4BXCuFmImLEauVMCbQDGrSAM0ECNgBLTyFT1UCjWzESVkWbDqWsqcHRLyAI Puva4GRDEgDHTjJcu2QARhIEJmHPLdYWmqDJIiYKXw PZQ8QCGsZNTvOA6XFmTgDGYpZWT7SzUrNTAmPQTwpb8SMYCdHQPwLiMvNWReKPYlSGFiNRoaHMOlEEAa FPq4HKWbLKCsAA4JJmXhUHPfYTK1PVidIQJpCJBini0SJSEjFTQnMsw2DeKlALNsLDEiMJevZFFkMSK9 BAWlHRVxDSVfIW3ZPwHyYSElNYChPwdzVTDwMLGnbz 0MTWNzDBOwSVSmLORbUKAdCNHqYEhoMZKrCMI3JrjxFNXtUJTfBA1UBuTgJPDrFEc3IQVcMOPfIHFquk 9QVETqHKOwSFI7KXEfPMWkVBCoSNsdKPIpOAQ5JDC1JXVdXZVqVP4HGsZcDCZeEVn2DEYnDNIvSCEiqo 1TEAWyXREtXDAyZkLgNYTvJQOaEDpfRVXiQHT1AtSw JEBdJYUvMA7QBgZgAUInBCf9ERngXRZcVLTnnp1FNBSwRCTnXBf5SRDhVXTrNOBcEAgfPOQiSIVpRXH2 SIRcREAyMJ5GDjQlSZVsOuMmLMqoFGFuNBGdwp5VBZTmXZZwYIKpFNJkUOWgGIIlWXlsWXAoPVGeWNi3 ZWXqWBQeIC3CEgCmLXSyUrRgMYylPZPyGLLtuo8XQW ZvFTIoXlN4ISZqRPXjJQPoQWj1wtRrlDAhCRj7PR1MG4AubqOnFjfZMt7Me489FYA5ILOqAv1TH8hkTq 7vGNAwRRQLVk3YXLi8HBZ4AJYkYHbeOPQ8WHd2DCJbGbKtTJBsPmj6BQQjJkJ+JKdbVRL7ZaD5VMTcUS NxPbzzR4L9VWUoX1M1PWM8LJOeTR4iIGHLLe0+YSllnEXmfPayICCXQuFuSRS0CNrtLHGMWh2P ID Date Data Source [id number] 03/15/2021 05:49:[address] [facility] Name Value Range Interpretation Code Description Data Stephanie rce(s) Supporting Document(s) Nursing Note [facility] SGOIAs7mGtRRHsUh31/VGXskXHNod9IpTXzhBKp7VGryLOOkL1NmWTX8zL6gDJZ9IDjEWbSaQjPzFVM9 lbm [file] WWJ7CTW6ToFtHE3QAz0OQqT5AKY6aQFkFg0RBfQ4LlZIOaMjXK2TNQi= ID Date Data Source [id number] 03/15/2021 12:37:56 AM EDT [facility] Name Value Range Interpretation Code Description Data Stephanie rce(s) Supporting Document(s) Nursing Note [facility] OCCJNx7dTlYWWaXn92/PXUqeTJJsq8IrIDnmEBz2WJnsIWOuP4RbERP9lL0hOCU1LZrBKdTqObTtVBO9 lbm [file] ICAgICAgICAgICAgICAgICAgICAgICAgICAgICAgIC AgICAgICAgICAgICAgICAgICAgICAgICAgICAgICAgICAgICAgICAgICAgICAgICANCiAgICAgICAgIC AgICAgICAgICAgICAgICAgICAgICAgICAgICAgICAgICAgICAgICAgICAgICAgICAgICAgICAgICAgIC AgICAgICAgICAgICAgICAgICAgICAgICAgICAgICAN CiAgICAgICAgICAgICAgICAgICAgICAgICAgICAgICAgICAgICAgICAgICAgICAgICAgICAgICAgICAg ICAgICAgICAgICAgICAgICAgICAgICAgICAgICAgICAgICAgICAgICANCiAgICAgICAgICAgICAgICAg ICAgICAgICAgICAgICAgICAgICAgICAgICAgICAgIC AgICAgICAgICAgICAgICAgICAgICAgICAgICAgICAgICAgICAgICAgICAgICAgICAgICANCiAgICAgIC AgICAgICAgICAgICAgICAgICAgICAgICAgICAgICAgICAgICAgICAgICAgICAgICAgICAgICAgICAgIC AgICAgICAgICAgICAgICAgICAgICAgICAgICAgICAg ICANCiAgICAgICAgICAgICAgICAgICAgICAgICAgICAgICAgICAgICAgICAgICAgICAgICAgICAgICAg ICAgICAgICAgICAgICAgICAgICAgICAgICAgICAgICAgICAgICAgICAgICANCiAgICAgICAgICAgICAg ICAgICAgICAgICAgICAgICAgICAgICAgICAgICAgIC AgICAgICAgICAgICAgICAgICAgICAgICAgICAgICAgICAgICAgICAgICAgICAgICAgICAgICANCiAgIC AgICAgICAgICAgICAgICAgICAgICAgICAgICAgICAgICAgICAgICAgICAgICAgICAgICAgICAgICAgIC AgICAgICAgICAgICAgICAgICAgICAgICAgICAgICAg ICAgICANCiAgICAgICAgICAgICAgICAgICAgICAgICAgICAgICAgICAgICAgICAgICAgICAgICAgICAg ICAgICAgICAgICAgICAgICAgICAgICAgICAgICAgICAgICAgICAgICAgICAgICANCiAgICAgICAgICAg ICAgICAgICAgICAgICAgICAgICAgICAgICAgICAgIC AgICAgICAgICAgICAgICAgICAgICAgICAgICAgICAgICAgICAgICAgICAgICAgICAgICAgICAgICANCj w/cIGsJ6zxpWSbpyP5W5cbNx7DYv7XRM8ue3YzMFYyAMkobwMxDixGKkBxPNPhSgoDMsq0TQxqXW5IrA OrZ7EgC1BtMGwoQX9HJQTmBYXaqRHiIDIeQRKyPqN6 VXXjNBvzKB8IdLYyEEijZZRoQDAeZQ2UMSFwP888zfQfPJ2WHy6NCwMcBP8siy6KNiFyXEVxAiyOGoi7 YAmnGA9CuZSexZOmPKGrWNJGPmIjR3gad2KfReRqPPQXJZzyKF1Nh3QyoURqMMx+Ee9NOF0yg0BvTCqz YHDrNR1dyd5VQXaUHgNxZ5DdeTndQA64aaMrgqkhIi 10UVGjdWNQXKMwntMYJQEcr9IgDBERBRH8TUkiFs5lMBZeTUQhJbMaTEBMEF3XPXXzAOCkyUViVXWyZH CWNE9ANKxuJFF0CnqoikZcmSYfTHhdZH4WPQZzqjBkYsRzUNYNXIh+Ow1PGK3un6YyGArjTpJfPJ7tih 3MBLoFIdNgU1E0rHRgY9Z2GRoiHt8LVNXmHHQzQqTr BQBKRYdsZJ6WJR2ldrJ2QU8XyMUpYHHdWZXyzYYjLOt5F18jmYXkJNydUW8WMKV+Dillon+Zo3GRVRlQRAc EWZlNnQkMECGKpWsS7ShH7OLz5HiD8RmSJ37rNslwkUmPNhqDI1UJW9yXUJsSSHWSM6KbYObpO1gzlXy WCQkXSEMAhTjR14ipIUfNEAcICLxUJUrPr7DGBDqW1 YijfLgzQseveTjDZRiOIBHID0LSPkemoVorVJamPrxQO46mAewXU2VQq8IGqPdCV0zaf7NoARqAq8OVX GzXv2HWPWnSCZwTBDzIHH1HGAwWdHeJCtyKKGoGGNlZPV8WTLpGWXmJX9PGaUdGGJqHjF3RRVlWMXnYK Fncc3ERIExCZIqJgL9BSOpDSAaKVJiTAgvZRElMILl JMV4IJMlVGAwDE7BTjKrVHYhION8CvgeSCPbJCJvit7ZERRmDIVyZeC1HbVhVICiBMPcQWhiFEPmQKZ9 HDKeFXDnWZNgWO2PPtSrXMPgYRFoRXMsHIQuNONapk0KJRJcQQLfLOOzKwEbUMScGTKvNZznEWRmQQB5 Zza5IFVsIGBsKR3GRzZlRKGrXPX6QZEhJEZuGOYppt 9GRCOsKDMgUHl8BAZwXTUsJVBdAAdcNTDyJZG1WBC4GDVgBEDpGP9AWbPiIOItLXu1IdTyODWeXUZfeg 8GMUUoTYCaANGiYGRhNANqMYGaUYbbMZZsKNN6ALl4OSEhTGQjXU6EYaTfLGQoYPrmKlYvNIHnMFApay 0ZBCIiLDSwKOv0RtRbRQMmHQLoQKkcDMDmRMIhEWGg CRVrUYLpZX0HRbUmTQGxTfUgTxFkCCQeNEGufo5HPNIpFIJtMRVyQATvQZAcMXKvUTyuTFFjCYCrJEe1 ABNiYXYkHO4HAwVoJQXjTdFaXkLxGATxMEMqte9IPFNyJBQlFtk6RuNqVWEcWLRwBQanMBXvQVVgGQU5 NROdUOCjDP5IUrJpDZSwLnT6LUoaHZDiCDYcfb5HaE KwcZbfzu2EZHsXGi6BvNtfTJW4JMigIh2umSSaYpQpTQETEe8BnxKrONAeZPYWRViyALXxZBM5JgH3GU v4HYIlLCm4VgF4YkCaCLBoSYZkRAf5GsklIpN6GqVdUFb9NMnbHGJ3AOi5Whx9PjRjIUGeTjY1CcL6P0 M+UH1zSJh+Fv1Zg6EsgnR0jwIlPPsoLiXgDo5EGZQLY9MSAc== ID Date Data Source [id number] 03/15/2021 12:37:[address] [facility] Name Value Range Interpretation Code Description Data Stephanie rce(s) Supporting Document(s) Care Plan [facility] TEMGIh9bJnEDSbLb58/ZWMepVTPlk5ZdYBziYNg8CAkpBLZnL1DbHXV6mA8kZUT0BVpWMoWaPmJuISK5 lbm [file] ID Date Data Source [id number] 03/15/2021 12:36:[address] [facility] Name Value Range Interpretation Code Description Data Stephanie rce(s) Supporting Document(s) Nursing Note [facility] LUZRGf9fYhFNWeAg51/LHJfrIHTti3ZsJQlkXPs3CFhuRKBxD3PwEKB7hR6zEQR5GIlNKuFzYwTcINK4 lbm [file] 54Vuz/dPKdwFM/8pXdZw9W2nQPQ3cPElh3yaNC1Hoy6maivJUqJj+cU/wYeh80/N52YvpAbx85nb+advertising analyst gYgRP54SQHRIKDYnej7qGebf2UW4gwn34LPJb+scdFu6fDZdKRXzu/PsTwFPSoriaVlJ+xXP/paVzBMa fYnCmqBZYfwcXKpCSZoOuQNMAf9eLYxJmvvfaXPAyG cZJYn4B9GIPk+Tw+BJ+5Xg2mw3ONJ6UXTsnUuhYL6fCKqcLP3rtUcKbIQrSJ+/urSII/wlKdK4AhvTtv EipiTLmOvcGAEcjn5z5ZGWPjr2KMV0wvvnGPzdtoWad74OCQdEGogAFib+cKtAnQ5r04a9ra2dd8vNyv NqP9YVD/ucJroPRw/qtighCS23dVYNxlzzKiQ6fND9 g2RCamgg0IrHAOyUloxixLdjModYLBwPZ5yMzSkhX5aFxrAfrEcDFDILmnUfHDcG2SGpBXNOAjLLhOxP kOW1qWFW4DBrIlVF1PjECHkewYFYhZBSSfmj/nkZC2OCP+LFd39pBCp0FZ6bMQkYjzsOxZhvqp6Artd5 wnTc61ZzYIhx9J7Fx9Fsc8mzopz2X0H/ItS4ltCOT3 nbLNUP23l7q9RTd/BcfCSNuGgGenXxDIOztBB2GlF6bsRMeYbVqIM6GOkwEuJOsQoVFPzI8lrfzH8ISu gffB6cZm2djEy3OAdELvFJMKsWRh/wyfvxy0RUArpEgVoFRyw11l7F4ofdiGzchW4Um3HplVWj3eY6MO 8m+/zkxY64goNbaJ7n4+hsPuVIwjMwvwtj4nmDKDwa +GK76Nh7thKr7X7kCO8CNdVX2ttwr5stRKiUd9Ai2S8Q8nC/UWs70XcE4ymPZi9TAsSQ/V7Sdv0XhfZ4 C2FHAvc+20w1cufvsZl7+h9nnVMUDHweougdFoHRIYfCXKkyrSmWt8+EEAbzJbvI0n/s2OTrAsKU5y87 8Ftb4fv72dnPx27Uu4AlVP12pA4X5y37D2+hlEK2ot [file] Cgeigv7CeNMGup4SKjZCs8sO62IgY+A12VtdlB2H3ela3H+u7HtiIp1LUp78TQCOVtBm39qj09G8+mechanical engineering draftsperson [file] WmHPH7Rvk3Rx4lQIXGRl9+AIfkvSDqlXxzHQNTNkX1JAG9PTqpHJXNYq1G ID Date Data Source [id number] 03/14/2021 04:35:[address] [facility] Name Value Range Interpretation Code Description Data Stephanie rce(s) Supporting Document(s) Nursing Note [facility] CMWVAu1kAyQDFyNz94/DUVmtLEMvd9DuUQemAZi4TVrzCKJcF6NaAKN4kA7xBGD0HDbPQzSmJjXzUTDs lbm [file] o5YQ6NAUQ3YQSzJe1TXXYvPK3BURCkGGXjNEYKKqQt EKFqUcQbCVNoGCLPADobKJOzS9DlXJR9ODCvMw2+ECxvTE6SG5MvHFD2YCd6FJ7+XVbwLD9OeBRZD1Kn mHEvMNchL3OMXV5GUQK7FH4IdTZeRM2EjMBHK5LbkMZdLx9ePAUlw1AoVe7vL2PDDLTXYZUkEZlwSNxh FIMtBZc8F5X7LTPvH4NVT386tAQmrRg4Ii4wS7WXJR bIWkQaTOcqNTkyQZRuFPh6E4S9GGMiV4ULC1LeAaAbekEoY4S+IbEgEHUEMV2UYXLQYJo8F0B9hGEdA7 E8iCyOnLY3MO9YDB4IeSNuhNCqp46+DcKILdMkZ5UNU2RUFJ0EXZy1C8X9vXKvO3R2oRkRrVY1NN1XYT 3VdNzatGOvSn0vIDabCLC+Xv6PTd3YXwLuHT7upz6U JuVfNKSsHqjHAfd7T4kfhyw7xRWtIhZ0Q4N1IqZ5aJSmAZ9ZA9S5zGEuYFR7QHTocIR+Br5Qt2HaYAQy ICj2B1kwIUXtTVHdLqZboP21I++9tsrltPB1W0y2UPBJwFGpdDzIsdTlF3zBYFJ3m4Y7BIh/Pj9WJHF3 yVq5lTQnNKGjGVp1pN8dhAp1KnWiQY50XFDrYRvbfC 3uTfa7O9Ykr7QbWg5aCp9cmWQaUu6OFrBcOEB7foLtIrURLrF6qRgmfdrhIUC2E2w5kFK3At42t0meyi Kqk0XvAbV4SBgvNOSaQiXamgGiTDR3umWgoW6gizBoZr1HZOFhNMrxnaReOpNVKg4CIsYqPJ71BzqhqF 1ldGE+DQogICAgICAgICAgICAgICAgICAgICAgICAg ICAgICAgICAgICAgICAgICAgICAgICAgICAgICAgICAgICAgICAgICAgICAgICAgICAgICAgICAgICAg ICAgICAgICAgICAgICAgDQogICAgICAgICAgICAgICAgICAgICAgICAgICAgICAgICAgICAgICAgICAg ICAgICAgICAgICAgICAgICAgICAgICAgICAgICAgIC AgICAgICAgICAgICAgICAgICAgICAgICAgDQogICAgICAgICAgICAgICAgICAgICAgICAgICAgICAgIC AgICAgICAgICAgICAgICAgICAgICAgICAgICAgICAgICAgICAgICAgICAgICAgICAgICAgICAgICAgIC AgICAgICAgDQogICAgICAgICAgICAgICAgICAgICAg ICAgICAgICAgICAgICAgICAgICAgICAgICAgICAgICAgICAgICAgICAgICAgICAgICAgICAgICAgICAg ICAgICAgICAgICAgICAgICAgDQogICAgICAgICAgICAgICAgICAgICAgICAgICAgICAgICAgICAgICAg ICAgICAgICAgICAgICAgICAgICAgICAgICAgICAgIC AgICAgICAgICAgICAgICAgICAgICAgICAgICAgDQogICAgICAgICAgICAgICAgICAgICAgICAgICAgIC AgICAgICAgICAgICAgICAgICAgICAgICAgICAgICAgICAgICAgICAgICAgICAgICAgICAgICAgICAgIC AgICAgICAgICAgDQogICAgICAgICAgICAgICAgICAg ICAgICAgICAgICAgICAgICAgICAgICAgICAgICAgICAgICAgICAgICAgICAgICAgICAgICAgICAgICAg ICAgICAgICAgICAgICAgICAgICAgDQogICAgICAgICAgICAgICAgICAgICAgICAgICAgICAgICAgICAg ICAgICAgICAgICAgICAgICAgICAgICAgICAgICAgIC AgICAgICAgICAgICAgICAgICAgICAgICAgICAgICAgDQogICAgICAgICAgICAgICAgICAgICAgICAgIC AgICAgICAgICAgICAgICAgICAgICAgICAgICAgICAgICAgICAgICAgICAgICAgICAgICAgICAgICAgIC AgICAgICAgICAgICAgDQogICAgICAgICAgICAgICAg ICAgICAgICAgICAgICAgICAgICAgICAgICAgICAgICAgICAgICAgICAgICAgICAgICAgICAgICAgICAg CCCdTMMuWLXtBHTfKAUpZKCuSIVkCBUwBXd8L3caLYGrZQQiHL7pJQh9Nk2+YSdUHpJaSXF4ibGgnY5K RO9gv6TaBWerDMTmc5XvOVw4WX6COZAgBGsoDJ8AFW idvs4PUJZlEJOoiGCFf5fiTiLxUWY0KDNuByvnUO8MMXGqH9hxbgGyZRMmQJFIEH8STxStK8KbsE71HO ENCj4+KLhuqoQgEchTZdTrKKNsz7KfPIo7MK5WWSAnLtyor0YyAwDwAQBMITwyGM5QREP3ICPpQBIxVv 4TGMAbM297rlDyNO3YOk9VFlZlBK7pwn5AFbHkNACn MesUDrg7XBquFN3ZaZLxAGaLhZUmfB0kCI9ltAOqTdpmTVruobKeFzmcpDNtf0efa7qyJAGHYIN5TZhz Hc6tFJKyDUB9YoF1WIRHWC3ZSUGsGCOaoFMwUPPhRVUAZZ4GGKcnUBS5DrneekSehDDrQKmoWP2NYLSi bnQgMjIgMCBSDQo+Uz7TCT3ca0QqGIxfVLFbNN3elg 1JRUqWTzPnN5O3vZKqO6J5VJvtVj5JLCZcGJFaNsToJIZFPMdnRT5MZD7zilE7DS7JvUDyNJKqGMXucM AlLEd3D14mnZJnFAeuSC7RFCG+Dillon+Dh1FKFGeBLAxFNIcNuZzZYQPLyCmH7QfR3KXl8QtJ7QvYP30xK gynsXwFXnsME9ZJU0lTGHvCBLGYX8VqAJrnI4bonUb DlSjWNYKAhTgX01liZCtLKKlDXDyMQLbZg4YTARkZ5LpvhYudUrcdgUpOERqYVHBDZ1ARUtvtvAxrZEl iMpaZE77bFofGP5GCx4PIiTvHR2qwa9UqANsGa0PKXAeFS5FAZYkKMWqWUDaFEX4PDHvYhCoDPwrYPDe PIJjKFZ4LKAmVGBbPF0TZvRaDSRkYYe1XBxlWWXmPU Qbpc7TSLFuCDTbZImfGlJrZUJqDYQoVBorOODyFMAiDKE3TVGzDSQxHL8RFaOuYATuBPQ6VsDxRFJvPF Cizr2CQHDtQLUbIFnoXQThUFJfSLCmOSwdEHDxPCJcHlqvBPGtESIjDU2UQkBgJXAjAMV9TXYqXUDeFS Pznc1EXVQlKPBvGhG5YFGdQJIjOFWdZBnpUNPeHPQ9 PUV7OOKlEZMkNF7MOoYaUUDqXYXxFyKuBJCaEBNqxt5GPBSaLYFgYQVcQeVrSSPyCRGeYDfpFGFiOHQ2 ZoT8FKWaGEPyVW9ACsLjFMMhCHhiAFZaSCXqHGHkgk4KSARxTKQxDcO4EEGfLASxBTKrLRtkXISyAJJ0 KFQhRYUqNTYrRZ1FCeMbEIDzIYv2DmRtHAYcKNDtzh 4BLTBqZGVmSUUjGITfSVAdAMRlTOzgMVAzREA2BINsPDXmYNAdYR1UQzBpVKPgHSb4EzAiLDHsEMXatv 3EFHFoRJLyBOM3MyXzDOOdFECeJRdmKQHkAEQnLBCxTCOzIGEgEK2CVjXkJVDaYmX2PJYsWWXrLJWpms 2SOYTyEUQfQMD7YUEdPGHnQSEyLWw5zzZcnRTaPTc0 KL0DZ3DmpiWfFnONNw7Nq876FMW3ALUbWn1DP2uxNe7sUACeALBNYy6QTFc1EyR2AhA2PHL0EoehTni5 YThiZTRiMDMzYTNjYjUwYmI+RAocJoVcKTe7SxYeTSXcSprjDXQqTEEeRvZsD5BhTICoEc7aCMAXOl6+ WKkujSGidGsfUEDBXbVkBdx1JWlhKAOPFh6R ID Date Data Source [id number] 03/14/2021 11:53:[address] [facility] Name Value Range Interpretation Code Description Data Stephanie rce(s) Supporting Document(s) Nursing Note [facility] UGKLEl4sFiDANqPf12/EQHemXTMrs4YqHFrgPDq4RRwtVZOsH4IsVVH3nN7aLTD8FWsEWrVvAfArFEOv lbm [file] W9ODHaYzB5XrLuUmSbCoLtWpPuFN7QLh2SFgJ0TJP9uUEzAv1KDmIoNRwOQjEvLH8DGUx= ID Date Data Source [id number] 03/14/2021 11:44:[address] [facility] Name Value Range Interpretation Code Description Data Stephanie rce(s) Supporting Document(s) Care Plan [facility] GADLGe8qCgTVLlTm76/VPRckOJSgn5DfFVjsRSz5MHerAMNeD7SvMXA1hU6cIPP8JWaUKeTaCmYwGZNt lbm HlCrjHLeYdKPVoOiyPTwFoNPdsQeldiLOeHR8CtJS4HXYeA56pTOAjUATtG8OuCGa9LD3+ETlsCST9ar IjlY1RNODpKOlu8fGEgb+w/7JYXpkMLVbeRprR7zXCauiNz9YUpmE8YQ9le3KH/qdFa8Hg11rG7kPTeX UGEicaDdopcpPD9o8lvWGcQII/9nD0YipKkJbTDxPr FmLVKxFCCwQzLCwWuFfJ/0uKteDKKWuwIZheOTkVBWuMxVOBGRZU8RtJKwMwXmq2dQCiJQwux+4xAxcO pQaqAKx2pGeoyAmcOd5o3rB4uS2NK6elsfHqVPsutNNmL8AKVFAJFon2rD7CpmPWqFHjXGsxKNDeXE9z 8rSJZxugr0woQ4nL0rLhPRmibpx1jJgDE04qbVyhGl uoAEO2qpVeTkT8cpbc/VZDgdfvoEcvxQ5vlQ3OSlHolTH+muEHmqyA9j993N0UKLK2wtou11cKA8Llv3 ju4CiFdcvTZYsyoNrhMVl0n0lXdU0XTPbrp99e++Fx2NcAd+mPcbrXEGbmDDeaV/rudy++XLbYA7VyFM0 [file] ICAgICAgICAgICAgICAgICAgICAgICAgICAgICAgIC AgICAgICAgICAgICAgICAgICAgICAgICAgICAgICAgICAgICAgICAgICAgICAgICAgICAgICAgICAgDQ ogICAgICAgICAgICAgICAgICAgICAgICAgICAgICAgICAgICAgICAgICAgICAgICAgICAgICAgICAgIC AgICAgICAgICAgICAgICAgICAgICAgICAgICAgICAg ICAgICAgICAgDQogICAgICAgICAgICAgICAgICAgICAgICAgICAgICAgICAgICAgICAgICAgICAgICAg ICAgICAgICAgICAgICAgICAgICAgICAgICAgICAgICAgICAgICAgICAgICAgICAgICAgDQogICAgICAg ICAgICAgICAgICAgICAgICAgICAgICAgICAgICAgIC AgICAgICAgICAgICAgICAgICAgICAgICAgICAgICAgICAgICAgICAgICAgICAgICAgICAgICAgICAgIC AgDQogICAgICAgICAgICAgICAgICAgICAgICAgICAgICAgICAgICAgICAgICAgICAgICAgICAgICAgIC AgICAgICAgICAgICAgICAgICAgICAgICAgICAgICAg ICAgICAgICAgICAgDQogICAgICAgICAgICAgICAgICAgICAgICAgICAgICAgICAgICAgICAgICAgICAg ICAgICAgICAgICAgICAgICAgICAgICAgICAgICAgICAgICAgICAgICAgICAgICAgICAgICAgDQogICAg ICAgICAgICAgICAgICAgICAgICAgICAgICAgICAgIC AgICAgICAgICAgICAgICAgICAgICAgICAgICAgICAgICAgICAgICAgICAgICAgICAgICAgICAgICAgIC AgICAgDQogICAgICAgICAgICAgICAgICAgICAgICAgICAgICAgICAgICAgICAgICAgICAgICAgICAgIC AgICAgICAgICAgICAgICAgICAgICAgICAgICAgICAg ICAgICAgICAgICAgICAgDQogICAgICAgICAgICAgICAgICAgICAgICAgICAgICAgICAgICAgICAgICAg ICAgICAgICAgICAgICAgICAgICAgICAgICAgICAgICAgICAgICAgICAgICAgICAgICAgICAgICAgDQog ICAgICAgICAgICAgICAgICAgICAgICAgICAgICAgIC AgICAgICAgICAgICAgICAgICAgICAgICAgICAgICAgICAgICAgICAgICAgICAgICAgICAgICAgICAgIC QjQRZhGQNcWOy0P1elDYUmECXeFJ0vAUi8Qe1+CQjHFbWmXSA8osNxkT7PTA6pa0DqBFiuUXWjr1JoBZ d4TK8CBBGtUWqaXM7XWXyrjw3JWZDzIGLklCDLy6tu XuFrWVV6BYKqCddyKO1ZRSEvU7dwguWcJFAgCAQIVB4RHcZrJ3WmgZ10UAYMFh6+DQplbmRvYmoNCjI1 LOOup6IwASv1KC4PPLPsAdeek9ZeKsXmJSAKXOkeRM6TUIN8EBU2BFUwNo8FNATvH207uhKeST2LVs2B OrLbTL7stk7SMrHlTXAoNtfQIlv2WWqnMH7VhWLdJD oXBJHyCCCaCA8sLotxPGzarpCiPsahoNEzr7kwd7hiKBZHNHN0DEaiQq3hBXClRARiEyR6IQQWWA9UNP ReSSLzhEKaVYFaRDLNMA4NUCzjEUL4DdvqmnOpzFJpLClbXN0YACQqwmFwRrShPOAFLVi+Pu8AHB9xy1 LrHAjrCdTzKA2xze0XSYoDOrGnE9X7wEFlH2B2EKfr Ac8DICLlHFLmQzOgSHOMDNswSF3UWX9isoW9QM9MdNBzZXSdSZXchKTeIGo4Y81jkTIsBObrBF2ARUL+ Dillon+Fo4NDQJrGSLiVUMhUsPfYYCSZoMoI1DkS8AAq3CcN5XzTL28gSmfzrXdUUcxCW5HZD0tVJNzFQTS HL9WmCLozC6hvkLgDZWsOQOYAeDeE76wfWCcNSDaBA Z8ADZbFn4XMACyA9OkpuVdfDldviPuGYEyYKUSJG8XFQmxgqFmzSBizLtnLQ36tFoiFX2COi0ZCvLqCG 1ldc0YdFXxRx2FKSTqQC2EFGQpCUKgUMVqQKW2ZMBkGiEvIDeeOVIfSGYrVQK8DVIzWTNcXK6FOuHwAN DyUqEiVoXtYLDzFQXudj6JJKLuBLVlDFu0TlUiGPTq XHVuPOyqWLHwRVIvOFS6NRYoXJMoQW1MMdJqPZGqGIIfTwEsYWZrIMBffs4SLCEwMAKsDMBwNkWiYRKx WGBdGXigRWVmRXLxYcm1YMPcBPEwJH5KLkBzKHShMNC3QSFwZTAoKGRmzx5DNISfBLDkXrq8FZSkARZb WEFaMUewZRJkFMMzOxK5OMWrDNQgHR3YTmZvCAPfCB G7TpExSUEgSIScmk8OGIBmCLTbVHWmPQUgVAAhMRZpJXxxPOMiFJB5OJN1HJGfXVGwPO2EKbBxQQOiDE V7QIJfFZXaQCDncr9VMJMiJEXtNrf0RySlVJElVQFqDBhfYJAgDMY6KnVtWSQnKBIbIB3YKyHnWVOcKJ vaFhveBAQbPLDltb5WGRVwDJCgWALfWYZoMWGuVUNb SErzCIMwQSB5VXE9MTSsIJJhGS7RBoJlFZSjEDf9CQKfVKXfOIEhpq9NHLDnPZLxXFF4UvHcYYQzCUYn GSibJCAbHUG0XEFyGTSeANOgCG5ZOsMkFYKpJaVlSGBrFCMbSUVjyj4ZMCZdEXWdTNCvYoCwZGCgQCMs SVryULTjGTSfIQt6SOXiCVWdHB2GVuEqFIKjZiL9IC DhAZYaOUZtqz6YSUBvQSQjJpF1DFWzHOYcQGGhZFm2tdXqlMGaMRg2WQ2FX2GkvrKkFyfBFi8Im180JD L4KAVyYl6KG5adXj5eKAYaKRMHKv2OLQl2SCC2NGTkNPD0AoG5YcHlADjvSyW8ToseThAcDDIoMkM+ID yaHCd1CHV2OJl7EgZ0GQGkZWL2GsjzPCEyFQRwMNYh XM4iAOCKLl1+KAmszTCwvWbvGSKFRpGuFoZ8LUuyVAHYTv2P ID Date Data Source [id number] 03/14/2021 11:35:[address] [facility] Name Value Range Interpretation Code Description Data Stephanie rce(s) Supporting Document(s) Nursing Note [facility] REUHEn5lZnKLRrPv20/PGXogDNTbz2VlFXyhXNz7QMbyJVBpV3JsFLZ8gT3cICM5RMuXFaQdDrXqHSZl lbm [file] OPzlMt7BFLTEU6ARYh== ID Date Data Source [id number] 03/14/2021 11:12:00 AM EDT [facility] Exam Number: [id number] Reported By: Maria De Jesus BARAJAS M.D. Signed By: Valeri BARAJAS M.D. Name Value Range Interpretation Code Description Data Stephanie rce(s) Supporting Document(s) ID Date Data Source [id number] 03/14/2021 10:21:[address] [facility] Name Value Range Interpretation Code Description Data Stephanie rce(s) Supporting Document(s) H&P [facility] YNEMTa2yPaPRXyRw43/TZQzrAHSox3IdUCnwWXv0DMppJROnA1FaCIW4uG9sRVA5JJtLGhXuGsGgCIOf lbm [file] oMSyHy9AZYP8MeWWAhUwVB4ECAo= ID Date Data Source [id number] 03/14/2021 05:34:50 AM EDT [facility] Name Value Range Interpretation Code Description Data Stephanie rce(s) Supporting Document(s) Nursing Note [facility] UEUWXo4rHcITKhCu39/XGGgjUVEcg4SeISwlWQy8JQjmUQNtU4BqLOE2pK1mIAA3DBvRUiKcIvRiBHTz lbm [file] o= ID Date Data Source [id number] 03/14/2021 01:22:47 AM EDT [facility] Name Value Range Interpretation Code Description Data Stephanie rce(s) Supporting Document(s) Nursing Note [facility] EMTIFb5rTcZAXiOx16/LFGpzEDRvm5EyVPrxGHz5NEliEBAjG2ZtPYA7gZ1tWFI3SLvQVdSlCiOnHQQr lbm [file] Td1PArH1GAM6lTFtGb5NRmFbOmNTAhBvAW6NMPg= ID Date Data Source [id number] 03/13/2021 10:37:[address] [facility] Name Value Range Interpretation Code Description Data Stephanie rce(s) Supporting Document(s) Nursing Note [facility] XTVFSn6aVfRAWkDi46/JCEieKQWll9XiIMjhOTx9PKnqNRHmB7DmJZZ4fU3uISS4ZObGSiZvDzRrEDFg lbm [file] Hh2XJrV4QXS4sSKmOa4TIrTdLCKZFuVcAI1KJYs= ID Date Data Source [id number] 03/13/2021 07:24:[address] [facility] Name Value Range Interpretation Code Description Data Stephanie rce(s) Supporting Document(s) Care Plan [facility] FRXODm5xFzTVRxFd09/WYKrgYSNjy3NoUCdyDQy6EDwrSLWjI7QhNRF0xA9gZPV3WWuNQmIsKpWjLRZv lbm [file] agency legal counsel+9D9OT7//+XBPHgnm4CXvzYjzuTH3qW8Y8v0mwFkvDmq+k0xPnPrGRWpmmUu2NRFrONry54t3HRry [file] DQo= ID Date Data Source [id number] 03/13/2021 06:53:[address] [facility] Name Value Range Interpretation Code Description Data Stephanie rce(s) Supporting Document(s) Nursing Note [facility] QAUAYe7rOuBKMqBh28/DWRcpGTPda1TqESyxRQr1XYcwOYKeK1JgAPZ8dU1uJUR3TTdAUaEaMeStKQXr lbm [file] AgICAgICAgICAgICAgICAgICAgICAgICAgICAgICAg ICAgICAgICAgICAgICAgICAgICAgICAgICAgICAgICAgICAgICAgICAgICAgICAgICAgICAgICAgICAg ICAgICAgICANCiAgICAgICAgICAgICAgICAgICAgICAgICAgICAgICAgICAgICAgICAgICAgICAgICAg ICAgICAgICAgICAgICAgICAgICAgICAgICAgICAgIC AgICAgICAgICAgICAgICAgICANCiAgICAgICAgICAgICAgICAgICAgICAgICAgICAgICAgICAgICAgIC AgICAgICAgICAgICAgICAgICAgICAgICAgICAgICAgICAgICAgICAgICAgICAgICAgICAgICAgICAgIC ANCiAgICAgICAgICAgICAgICAgICAgICAgICAgICAg ICAgICAgICAgICAgICAgICAgICAgICAgICAgICAgICAgICAgICAgICAgICAgICAgICAgICAgICAgICAg ICAgICAgICAgICANCiAgICAgICAgICAgICAgICAgICAgICAgICAgICAgICAgICAgICAgICAgICAgICAg ICAgICAgICAgICAgICAgICAgICAgICAgICAgICAgIC AgICAgICAgICAgICAgICAgICAgICANCiAgICAgICAgICAgICAgICAgICAgICAgICAgICAgICAgICAgIC AgICAgICAgICAgICAgICAgICAgICAgICAgICAgICAgICAgICAgICAgICAgICAgICAgICAgICAgICAgIC AgICANCiAgICAgICAgICAgICAgICAgICAgICAgICAg ICAgICAgICAgICAgICAgICAgICAgICAgICAgICAgICAgICAgICAgICAgICAgICAgICAgICAgICAgICAg ICAgICAgICAgICAgICANCiAgICAgICAgICAgICAgICAgICAgICAgICAgICAgICAgICAgICAgICAgICAg ICAgICAgICAgICAgICAgICAgICAgICAgICAgICAgIC AgICAgICAgICAgICAgICAgICAgICAgICANCiAgICAgICAgICAgICAgICAgICAgICAgICAgICAgICAgIC AgICAgICAgICAgICAgICAgICAgICAgICAgICAgICAgICAgICAgICAgICAgICAgICAgICAgICAgICAgIC AgICAgICANCiAgICAgICAgICAgICAgICAgICAgICAg ICAgICAgICAgICAgICAgICAgICAgICAgICAgICAgICAgICAgICAgICAgICAgICAgICAgICAgICAgICAg ICAgICAgICAgICAgICAgICANCjw/rWHaL7knqFKuwaR5G5cbEv6ZHt5DKC3xi3PwITKoFRuqzjJgZcrM FyHiNYUeVeyLObu6NEpjXN0LwANuZ0XyL7QtAJmdXO 1BCCPkMOTohRUmFCJiMOIcVxC4RLXlLIhzDF6WwZEeLXptNSQoECLmHV1ZCRKcB773cyOpYT3DSo2UHz JnPG2atl0RMaRjDHBpScdFXoc9AQecIE6MqVDpnFBpViQrBPRQUrGzA9brf9PqRgDdCWHCQQebIS5Rb8 VudCAxDQo+Pa3WFB9cj9IrOFijGhIyMQ6dui3OLQfU PfWbA5BqxOeiPN86ijGioikrAk68WMJolPPXk3WnOuRIH8H5HY8tJTZNJMO8FPuyQu5aXUOfBTV9HjR7 CZUMUF2WCFDyLEVynONjJKLqVUVGQN2MYFcmOUY0SncfyrYjnILrTDziKG9PBCNqblNzIcMdMPVGXOx+ Aa0PUE0ys5MtGFitTUFzKC4rni2PECtMSgWbJ2X0fZ IaK4U2FAfjFu1GAPBqTGGzQqIuWLFABJacUV6OTK1rqaQ5DL7XhVCjOOEmIRCssMXfNZw0Y08oxUSoBQ tnXW9DTLP+Dillon+Tr2HRNRrQTJgSVHzHjTmVBLXQgQzQ8TpX6BEx4GoI7UeKP77gWgtfaBjUYpzSI6ABZ 9cGURwHQDIII7QpVWkxI3rafIpLmFhGKRARaWcY37k hRBjRJYvSJTzMWQoUp1EKGBdT1HezaVmoNkccnCrBQRtBZIKSH2GTSquklIsgSXqvXcsNH41hCpeUY7K Qj2JMbMqUM0nmy6OvBHvHt8QMRCdPI0VAIKgISLqWMTgFVL4ANLgEsXpBRfyTJEiLIWhEFZ4LDXwIYEn NC5KUqFxMHBjRIw6ZOxgCBBeBRGsum9BOCCpQZSwMC UgOPLnFXIgWMDwYIufMVUhCHVoEZW8HODaRFZfNG7JDrZmZFQpEECkUmetDEGkUPDlvx2SCLWyXZAsOz WrAkDjGPHnRNOoYXktQQFlMOMrTricETToUPFyLA1HLsYuXERdYMR3ZEHqYVXkWIPyiy3WDAUjFNSjCd Z2IaXzFIWtRJAcYJafXCVvRIU7KgH4VVLjBOWqUD9R ClLuNJZzMUX2EhDeMCLuSHGjez1QZUHgWDKpMUCmUCZtRXNmLDKeSTbeFLYxJBN0HrI3YXEhZQJcBV8N VoKaNOExYYh6SURrOQHtRTPjfg1BBOWvDLTsIzj7MYArRZLpCAAlZYmfNKAlPGI5OQL7NTPbZKYdUT0M OaLwMRSfSLokChOxFOBvBPRxfo5NSRFuPRWmYOMxCu YnONFsMHCiGFtqMWOvESL2AUVbRKHrCEIfSC7WPpVjBOIoZJq9HvSoHANaOYNppr9YQKYwDQOqIXu2PO JkSHDqUJTnDVjhICBnUHHoGEW9WKTbPRAqPI3SEeLyLQOtUlN4XVUlFLXxUJCavj9POFYcLUVeZBD5RI IaNSWcHHVdKGj0qdNgwMQjQEh5LT4MA5AtjvJaPtMI Rd6Wu585IDO5YLWlNd2RP3mgMz8bDNJkUDIFUe8RRNe1ImghRABnP0L4GkZqOCSwAKG7EjFtPtI6HYdf NTNlODk+BRvoBIP4RoZqBEgjR0M6IuT7FYH7SBZaCJFxZ6Y6J5I6WT3yYGGETe6+DQpzdGFydHhyZWYN RmBpAUo8HGmiGZELDj4V ID Date Data Source [id number] 03/13/2021 05:56:[address] [facility] Name Value Range Interpretation Code Description Data Stephanie rce(s) Supporting Document(s) Nursing Note [facility] OCDCGr6bVfVLJwOy62/VNYalWBLuz4WrIGaaVVq6CCkdKZEgO0AnBLQ3jB6lVOC6TNiELyVuGnHtEJKb lbm [file] registered safety engineer/VbYra/31BuIP8dqpv9jbBJCfSSW5UKnGwy6j6z [file] DhZZtyWKC3O2EyFyC5KlMkSTXjLbT+NJ4yIOr+Ki8Aq9FgkdP2ntXfOQyzBNC0Sy8TDVTRD5HMDh== ID Date Data Source [id number] 03/13/2021 05:15:[address] [facility] Name Value Range Interpretation Code Description Data Stephanie rce(s) Supporting Document(s) Nursing Note [facility] JVIGRg5iTwDYPuLf44/PKTduUUJmy0OjFNmeRXp3XAjyIIHiT2BzEVJ2hN0yESF3WQmSYhYmLlHaWJYe lbm [file] QNM3QVA0YeXcEN4IQj4PPhP5YRJ0vHFeZz6KAfSsVloJXpAjTS0KHLo= ID Date Data Source [id number] 03/13/2021 05:01:[address] [facility] Name Value Range Interpretation Code Description Data Stephanie rce(s) Supporting Document(s) Nursing Note [facility] BSZBAt3nKlOCSzTc74/CTJbmSCJbv5AlOAgvAKa7NIhiKMLxB9YoWAW1qM0wBTQ0NRmKLgUgKmUyAAIm lbm [file] EmNP3KUSq= ID Date Data Source [id number] 03/13/2021 02:53:[address] [facility] Name Value Range Interpretation Code Description Data Stephanie rce(s) Supporting Document(s) Nursing Note [facility] LOTROk5nMsGVTeXl30/MRGbdHAUgo0UvAGscSUn9SRniKZJzW0SgFJR5xY4eTML2EXlEOrIpPwCjUWXi lbm OwMpsDHbLiANOrGroDXrVwJQleSjtpbHKtLF3JyEF2KXAhJ48qKTWrIUWdY6TpSYH4DQK+Uh6VHGVipT EvPX8HSqgQ6O3Phdu9Oz6rol8Ddn+qIVzYXFcq9crxL7TfhqROyfm9jZ7XCTU1Ceb6+Xeou48Mjblhge V/ngYxopRNfKAQYNCNfqPRMzCm+e+wDOebGOkO7o/1 w5Uakze534rknP6ZEo+H7f4Ug+ZMF7CT8SvN/9rJpy22eoRDVlIxWPYpvdkOtM4WJO2Hztl2UlmVGKvu X63nxwvo94yZG6WzS3yoh7EptEPAabb2XDLTiI6PTKmc4jnWk0xtyFi9yxAjQn7TP6gM92ouzxp4k0Qq WAoJVZ4jH4pnmieuZ1dpvm6PCfMFNN7kaEu73uBkMD AeEpCwv3cqTCfMlt+BvoLFNfjDE6eOaArS+kaeOJRUQNQgnQSG3rLDPLFRwzqLvBYoUJJJd1s1dat5Db G35MhxlU8mXqKvdb44nS0/1gJjxVKmsWtOfzIrr9JsgZCVC/XNsX5bwpR7z94TSZY8JatJ7glatTMlHZ rIAiLrm4fyqv5kAR4Zl+m5mpN7xYa9Bgvl9uton6Qf H5ZNldxTNV4f4Hb5hOn5pLfIpooXiaJ1uEoia8VxL/P8ejX/+XsUndp//Nec/Dgc/Pug32M9tQoKm0lO ZelChOwHuTCSPsqDd6LqaA3hU6lDyKt/aQ5jh8umx2cSgh2Lbldvi6R0oFAoP0KbXXr2WXTW+Sjsa7Oi pBJ3ymZWNndZlNZcDMS3B1Uk3V1OvwNvu30FO9+hardy [file] ICAgICAgICAgICAgICAgICAgICAgICAgICAgICAgICAgICAgICAgICAgICAgICAgICAgICAgICAgICAg ICAgICAgICAgICAgICAgICAgICANCiAgICAgICAgIC AgICAgICAgICAgICAgICAgICAgICAgICAgICAgICAgICAgICAgICAgICAgICAgICAgICAgICAgICAgIC AgICAgICAgICAgICAgICAgICAgICAgICAgICAgICANCiAgICAgICAgICAgICAgICAgICAgICAgICAgIC AgICAgICAgICAgICAgICAgICAgICAgICAgICAgICAg ICAgICAgICAgICAgICAgICAgICAgICAgICAgICAgICAgICAgICAgICANCiAgICAgICAgICAgICAgICAg ICAgICAgICAgICAgICAgICAgICAgICAgICAgICAgICAgICAgICAgICAgICAgICAgICAgICAgICAgICAg ICAgICAgICAgICAgICAgICAgICAgICANCiAgICAgIC AgICAgICAgICAgICAgICAgICAgICAgICAgICAgICAgICAgICAgICAgICAgICAgICAgICAgICAgICAgIC AgICAgICAgICAgICAgICAgICAgICAgICAgICAgICAgICANCiAgICAgICAgICAgICAgICAgICAgICAgIC AgICAgICAgICAgICAgICAgICAgICAgICAgICAgICAg ICAgICAgICAgICAgICAgICAgICAgICAgICAgICAgICAgICAgICAgICAgICANCiAgICAgICAgICAgICAg ICAgICAgICAgICAgICAgICAgICAgICAgICAgICAgICAgICAgICAgICAgICAgICAgICAgICAgICAgICAg ICAgICAgICAgICAgICAgICAgICAgICAgICANCiAgIC AgICAgICAgICAgICAgICAgICAgICAgICAgICAgICAgICAgICAgICAgICAgICAgICAgICAgICAgICAgIC AgICAgICAgICAgICAgICAgICAgICAgICAgICAgICAgICAgICANCiAgICAgICAgICAgICAgICAgICAgIC AgICAgICAgICAgICAgICAgICAgICAgICAgICAgICAg ICAgICAgICAgICAgICAgICAgICAgICAgICAgICAgICAgICAgICAgICAgICAgICANCiAgICAgICAgICAg ICAgICAgICAgICAgICAgICAgICAgICAgICAgICAgICAgICAgICAgICAgICAgICAgICAgICAgICAgICAg ICAgICAgICAgICAgICAgICAgICAgICAgICAgICANCj w/wLWcD2pqzLNeuaP1T6kfLt9CZr2XYB7jk7JgCCJkXFaolpLzMiuFTbAeFJVtMolBNrr5PJqoPS6UtI AiF6OaK7RwRPfkDB6IXENeUJZwjPZyZJEiYCFaYdZ1KUOmJNvkEE8NwXAvSJvxGDBnSNRbOO9QMPHuY9 88kzZqBR0FUp1KNqFqQP4rsf8XPxTaELYeBkhMOaz0 KKwmBM8PgINzvHNxJCYmERZMUqGjR2lmu8BjDpQjJZKTALahTS4Cp4BrwJEwMZa+Oz6ZEU0hq5JpIKak JIDvCW3ywd3FWVvAMnAeB8DwmOwgPQ87hcCpzgvwAj53KIWzlDAHk1LtVoJQA0B0BP6dOUVXIEK5OQww Ib6uVXOxJFWpIhP0GMPUBC2HLRIeDXHnbVAlLLFkWL RWSG5RHEspIDC8QpxxkrRrnHCdWHtxNA3NVGEexvAgSwNfNOARXRf+Mf3CLS4ct6EyLNldDpLrAC0wru 5KRIiADyDjQ3T4hKCbX5F2YEjfJa5BHEKkAFLsMbEsBLDVVBooZO9GDZ7ffhP7GH2XiWPeNSHjYABcuM TxNPq5O33ghMQxUMvnOI2ZVLX+Dillon+Tf2AXCPlTOYo RTRlDnNsXVNYQyWwS3FeE8LNx5CiQ1PqMH09hMmjdvCsKZswZC8JVR6jFYAgGNIXMU9SzLSibL5aozKg FKVoMLAKZmRoK57ewZUoDIEdUGZlZVAhTy2IOLHcR5ScweLisZyunuMdFUOkHZKONI1ZHRfnqdAyyRJl dFumMS36wGunMI8OOr6KCxUgOB8zyf8QkZOwHl2MRV HhJh7IFNZaFDPoCWObJDY7CJFiOmTmGYnhAOSgBVLeQTL9BMLxWBGsEZ4ZUhWtTMMzBtKbVIGiGTDyDB Qhmx1FRLXcOMUuUbsbVIJuPMNbUNZvNVikPPFdJEBiZCJ1DVDjMBYmGF4GNrBeUKNpOBKzEpNgEDDsUO Nlqj2HYQYwZHAcUwDnUyZoKFBaLMYnMRbbMXKfFUZ8 Gmt4JROuWNMhOD0AWrKrGXMiKCU9PYOrBTQxKGFemm0AWNTtYYOcHQD3WCPrCXQpFPIbZDbqPDMbUVD4 VuZ9DDJxGICeME9EHgMiADWmKII9BmRtZXPtTXYnal2JHDYgIXMkTpAaJQKuQBGrLYGtPOgbUSLcEQR0 VyL8ZOHySJGiOI6AJeTiLJYbSQa9RgJuUCHwMZCynk 0WFBXyMSTkCKe2EfEtNOBfJZTqMCyeRHDfJNU7MFOuGIEfPYIyMM4XYhHyMLTkCQkbBprlMARdMZElnz 2KMJAkNOJeXMLmFDOlICWbCSSpEWkpLMToDPFfZsp4AAOjGRIoJB1KFaRgMKKhDtV5ZpnmFXZgXRUdoh 1BNGTeBMOmTTq5YxXuDRNoSINjLEbzQAKtMUVcYZYf ALOyVZTjNW5YZlCkIHEsZcU7VvxeVESoUAYuhd6MZXFiTVCwKrQtIuEcLLQjBXQoLXqxQQByKRUxCHd1 JKOdXQVdSW6TPcDfFOJfDqHeAcDjTRNcRYFxsa6VtRAioLoyra5DWAhVXz2VaExnORN7SLvkEw8svSOy EbNlBWHVBi6YwuExBGHrBNTBOOpaPNKbHBMiFCGfJR QsZqGnHsEeMsTjFxTfLSGbWIWhFZS0KBK6EdL3CAItNtFvDWAgTTReX4BiWxG2NHE2ZKHgNWCaLockUO Y+IY6zVQa+No8Pd0SnvnG0prOzTVkcSgZ9UT1MDMVJQ2AMSr== ID Date Data Source [id number] 03/13/2021 02:24:[address] [facility] Name Value Range Interpretation Code Description Data Stephanie rce(s) Supporting Document(s) Care Plan [facility] RKRHQr9wIyKOKcCv16/JURogUDTdv8TbWQesCBq0EZrwEAReO1HvSQX4nC9mLQD7WPbAXrObCfOtCDEr lbm [file] o+1nhVCYKpvGZj3D3xr+insurance office manager/HIvLLltdtVtdirlIpEr2+1m9gv61dezWHQMDLqAtGxUlZKpogIdZsC7t [file] Fashion Photographer+gVJ0qwJe0OVvvLv0Lak4jBdg5z9oT/UbD3zmo4f [file] AgICAgICAgICAgICAgICAgICAgICAgICAgICAgICAg ICAgICAgICAgICAgICAgICAgICAgICAgICAgICAgICAgICAgICAgICAgICANCiAgICAgICAgICAgICAg ICAgICAgICAgICAgICAgICAgICAgICAgICAgICAgICAgICAgICAgICAgICAgICAgICAgICAgICAgICAg ICAgICAgICAgICAgICAgICAgICAgICAgICANCiAgIC AgICAgICAgICAgICAgICAgICAgICAgICAgICAgICAgICAgICAgICAgICAgICAgICAgICAgICAgICAgIC AgICAgICAgICAgICAgICAgICAgICAgICAgICAgICAgICAgICANCiAgICAgICAgICAgICAgICAgICAgIC AgICAgICAgICAgICAgICAgICAgICAgICAgICAgICAg ICAgICAgICAgICAgICAgICAgICAgICAgICAgICAgICAgICAgICAgICAgICAgICANCiAgICAgICAgICAg ICAgICAgICAgICAgICAgICAgICAgICAgICAgICAgICAgICAgICAgICAgICAgICAgICAgICAgICAgICAg ICAgICAgICAgICAgICAgICAgICAgICAgICAgICANCi AgICAgICAgICAgICAgICAgICAgICAgICAgICAgICAgICAgICAgICAgICAgICAgICAgICAgICAgICAgIC AgICAgICAgICAgICAgICAgICAgICAgICAgICAgICAgICAgICAgICANCiAgICAgICAgICAgICAgICAgIC AgICAgICAgICAgICAgICAgICAgICAgICAgICAgICAg ICAgICAgICAgICAgICAgICAgICAgICAgICAgICAgICAgICAgICAgICAgICAgICAgICANCiAgICAgICAg ICAgICAgICAgICAgICAgICAgICAgICAgICAgICAgICAgICAgICAgICAgICAgICAgICAgICAgICAgICAg ICAgICAgICAgICAgICAgICAgICAgICAgICAgICAgIC ANCiAgICAgICAgICAgICAgICAgICAgICAgICAgICAgICAgICAgICAgICAgICAgICAgICAgICAgICAgIC AgICAgICAgICAgICAgICAgICAgICAgICAgICAgICAgICAgICAgICAgICANCiAgICAgICAgICAgICAgIC AgICAgICAgICAgICAgICAgICAgICAgICAgICAgICAg ICAgICAgICAgICAgICAgICAgICAgICAgICAgICAgICAgICAgICAgICAgICAgICAgICAgICANCjw/eHBh S8lhwVObvcY9A5ehSh0NSk7WAF2gj0XwIRKqXNyjvjZiWuaGKjHwWKJdPmzABpg3JEscTJ0YiIJuU1Ei X5BxPFlrCC5LNXGwAJGtcOXqFXDfXYSrPbC0YOMcOC lnTU8LuKHxHNuwCOQpDUIlOnMlIGXiHP3DJLCxO279mkYgIk6EBh0QIaQkBA1zqk9QGlnoCSKkLctQIh j9NBfhQD1SqJZoeLCsKHKsFNQQSiUvC9pkm5GwCwpuYGMSQYnqSW4Jc9AttYTjFJo+Zi1BOE8yv3VbWB ktDDYdQE0isb0CLNaYVsWzX1MccGpmTDDmemXrTDqq uiAopMRTs2LeKaVYU8P4GZ8rNVNFSWK4UEzjUn0mTCQlQGOcHfVmOCMMQY8DIZFgIAUxdAOsUVVtUSZL NI6UKGxxDJR0SxhgocNxbCJtIYlyPE6TRCHizbWlBijjFSQHYDj+Qw6VOP2yr1RyPBasHJOdPW4tzt4V WCbOLyDkB2U0oOAdR9M1FIioPk0TCEPzCLIcTvYzTW NZTPsoKU6UMZ0hzwP4UD3BmXKlMBRkPAKprVQtFZs0G07zwYAtZIipCM9QNOO+Dillon+Xl7FOAByAEWwTZ MsYjCtEPGGOyPuD8YuR1KEw5DbC4JaLB45nZnzeeVeNFciUJ3MSJ4qXECtCPHNHG8TwZYqkP6wmaGiJk ZqUSQNOoWyJ91tsFOoUYEuZTG5GKFtXr6GFVNgU4Ck uoUbwLuepjGcYIRuSYDPRP7ZYPgwqoGpyKWucObvXB13eNiwIC3SLp1LPuCtXT9luf5EuPYwHl4KKGNa HA0UOQKqLOXjLTMjLII7KBCzHbRhLTreNKBkZYRrSED0JTJuFCKnWA7JNbVhDDPoYmO4NGrxVDWkTIAe rx2RKGPyJCDlVDW1NKSfJNUpGVGiBTrvMXAjQMJfUS M5HVArOZZxVF2MQhKzDERwPDR0PDblCEFhCHFzlb4QMUOlQKXtVzzjAuSpSJTnZNBsTSsrITFfWCA5MZ apYXSuCWNpFU1UJrJlWJVyIUFySFZjNTLdOQCchw0AZVUkVNCnRMK8PNLuIFSbAUTuXLyyROXmXSN8DX D9DDFeOULlJR1KAzJyCKPtMUP3KTCmZUBbEFDznv2H NFLaNOTgJqZcWJFjLLEjPWEmZEpdOAFcLGE5Xhi0YNOdUZGiOW3MLjDsFBNlMWA0WRKaXFWyLJKyno5R PBIjJPClNSPcQGBfBNDjNYKwBQerAYQpDMC2OkD7QAHtYXSvPE3DXwHqXNAkONh4XYFzCFMxHIUolk6P QBUnTQIzARU8LOLyRTQyBAEdFBodWDOuKKNeAwKaCP KlPDHwJT4LImEeWKMiEsKaZEIvRJGqXVZlgl7XUWCnWUTyIQO0SHHdJSUcCOMlYDqpHGTkFOAuKFQ1FD BrSJNgKL7ZVjPoBKHaExI6IKbqRNXaSWXifb3BTGMvFHTsDiB2QVFfHHMzKHIeZQdiEHBuBNEvKWU9YP QuMXSkGE1EJyXkKQHbVgNoDPHgQDCpBWVfkl2LYJVo EEQkXDc0BZSjTEXgICBjWTztNKFsWRN0WWA1VBGjDLOcHR4OJrJgMOFrQjI0CDMtUAQxDNSurm3TyMUe fMemwe9URGkKRq0DzHekTAAxCFanEn3ljVUxUSEtQMWKSp5WexRjTTXxQJADFNwmGCFyLNCuXrPqJMjm GwUsR9V5LFe9YCAoFup7FrJqIwz8D2H2XqE9ATRiJS B1AFAeTPGjHHVnYWnzSQTvKiM2EgIvDFPnWdK+KE1aTLw+Xh8Vh8EfntR2kyJmARmoFFKtGR0HZDTGY4 YNCg== ID Date Data Source [id number] 03/13/2021 02:22:[address] [facility] Name Value Range Interpretation Code Description Data Stephanie rce(s) Supporting Document(s) Nursing Note [facility] MFRRMr4bXhMJLkVi69/WBKkpLMVvv6XgYBozNNz4GUwhLKXnU3NyVHE1pH3lILT3ANpHEkKxRiHfUPIr lbm [file] ID Date Data Source [id number] 03/13/2021 11:15:[address] [facility] Name Value Range Interpretation Code Description Data Stephanie rce(s) Supporting Document(s) ED Triage Notes [facility] WJPSWo2xJgLTZoGk52/LDTtpKBFlt8UsXGqaWYg4NJwtYCLpR7WhMID3fO4iYBJ0GPaKMpLwVfIqSLHj lbm [file] AgICAgICAgICAgICAgICAgICAgICAgICAgICAgICAgICAgICAgICAgICAgICAgICAgICAgICAgICAgIC SoHRDfQXUrFBBvNQMxYDXtMROxFKRdQWOqACCoSYPjHUAsFT7AGWVmIUTkGSDhQLMoVPEdTWJoHCBkZJ AgICAgICAgICAgICAgICAgICAgICAgICAgICAgICAg YPFrINKqNHZdDRBsWQDeKGDhBKZvCEMzHCAaQNWhJYGpEDDdKRBdXILbFKWmRM4RLHJfUEYsMRIqCJJu ICAgICAgICAgICAgICAgICAgICAgICAgICAgICAgICAgICAgICAgICAgICAgICAgICAgICAgICAgICAg HFPnZDJkQZLxQCJuHSDjQSCgLFNjBRWnSYXvHS0NOR AgICAgICAgICAgICAgICAgICAgICAgICAgICAgICAgICAgICAgICAgICAgICAgICAgICAgICAgICAgIC FuIOMwUHIvCCAeEYYzYFXwHNJkWXEsLELsETXfEAQzQBHvDMQlLY1ZXRDeFODfAKDtTBUcHBXgMQMaNJ AgICAgICAgICAgICAgICAgICAgICAgICAgICAgICAg IGOcXJBxASElOUXdMICmVABsICBtJTLlUUWsUPEdJUScXTHoTNUnVSOeKSOfSCTfUS4DPZWzOFDxPOYj ICAgICAgICAgICAgICAgICAgICAgICAgICAgICAgICAgICAgICAgICAgICAgICAgICAgICAgICAgICAg ICAgICAgICAgICAgICAgICAgICAgICAgICAgICAgIA 0KICAgICAgICAgICAgICAgICAgICAgICAgICAgICAgICAgICAgICAgICAgICAgICAgICAgICAgICAgIC YrHDXqAWIiQXIdMUWzCBNvQVXkSZRyTXLjULGqMKWdMBJpIRMmTCWdPB9HCXPsQKOrSCHaHMQaCQKpEU AgICAgICAgICAgICAgICAgICAgICAgICAgICAgICAg HWNoPFVvTUBoYFKnBNHyMKGbGWSiQZAdBVRaEBDyQLPkVLQiYVUfUDSsRKGtMZZmQIFaCU5SXUFkCVSq ICAgICAgICAgICAgICAgICAgICAgICAgICAgICAgICAgICAgICAgICAgICAgICAgICAgICAgICAgICAg ICAgICAgICAgICAgICAgICAgICAgICAgICAgICAgIC TqVV1ZCEUmGTYpUEKzWIAnUJVyLBYqWEPmPTVwWNUcOOGoYPTiZTBtORVyRWFbGCTjOPAsQYBuZRGgLZ OdKDYoCQUjYUHwFWIhZIDpOUQzZGHkJQFvEWXgFSCdHQLtGNEoKGXtPKOaFO9ENR85gKNvu3X0EQImDO 0ndyc/Ol2ZMAqkgcOkeWSsKU1IZtNvOA9new1DHjZy JY1pks3HCYrUDwRtU1C5gJBvFQIdSTLKBfCkZ64hTYkdOx87PNmqOFYsPnVpOAd4Xb5EXiNzN5rwEDHp QrR2YAVmZlIwUKcxTN2Fb6KhaEGqORp+Kr1DOL8uh1DqVRbzXlYsBI1jdq7MRFfAJuFwI2VrbvH9YTCg ZVJqHj0IOLTbJKCqzEKrQaLkRMRPPdWzN1VbsN07JW ENCj4+TUtxjpOhLmiUMrCzITQpo6AuJXz2KA4OZSZrCRy0cCKwBWLoVFImFUnqBF0zdPJySXR6OGUyzN DiKRKwhaR8nE11xKZdHRPINWV4NTbvVh0bDDEuZINrJdXtYSRMUJ8VFTZjRTHnfNXwTORgBHCLLC9EDU tfBEI7UqxnvmFfnBRdVKcaRC7MOIBqfrMyLaOxOAXC DQo+Ru0AUO7bo5DaEXbwBAMaRU5lpe9SELrZFqSdY3B9rLUzY8D1NKfoKd9PLTOuCXHkSoUuIAUPHEbg GU2PQK6epoF3KD8DzFJpIDHfYSLoqEFvDLu3M65zaRTaURpsCW4HEAF+Dillon+Xf3ZCXJvUAEnNSPjDrLn NQTZDkPtG1QjI7FNb1IjI4RuUD85jEfwwyLyGFowJD 1VSP9lAWIdWQTEWY2DfCAvjR9hptTwMfBuEJTZUcEjR06maBFgKWPuHZMrLJQkFb5ZSJUxI3QsqaVwjD ixplDuGMOeYAEZQC9BHFcuubNduZGntFocGM16fKofTU7EGe6JIoGmVO0wws3ZuQZfBh1WUHYqVD4WMA NwSLPcZIWwBSS6JRKkTgHyQVmaFVZtRVOnSQK2TAGl VWWmGC6SUzXwEVQlWKv5ZbjeMGBtFXSups2SLWItZNFuIVKuYWSiNDQvZICeJObeEWHoPQRaISX7LKUs KOHaRF1OKvIcTVBaSGXcRYglZIDaIBGkvd0BDIYsIHWsYITyJvYkPFSiNTDwJPijBCWcCJFlRIOmUFDl BTJdYK4DDcSaINSwYAI5YmHlQFGbTTAuvk1EOQAyRN XwPin6OuSxVVGlVLCkCXarBOHtKHMhEKU5KOVrWTEmYM5GHnVgXUHzXHHpDXSxDUHaSIMgyf7UXJLhUP OeSAB2DZRrCUPpVSClNMftXGTsIQM2QtU8RHDjNLQhBE3SHbRqJTIjJWH2WUCoOHAmMDCehe3LNWDoJN BeHzX8HNJeSKNyZSWbDRfxDOVpYBN0Sgh9KGBuNYXv SU6KCxLxBRWkQHy9FPBpBYPcUOAqvq5EXEKoPRXbVFK4ToJzSIZeUEZeZLjbTZDwYKB2NzfwKAHoZFTg CR8FHrWsGNBoNKs3VHAkJAWhHOKhwk2FWPXdPAAnPZW1OZCgJSAdMCEeQUevPSFyKNLgRib8OMWqSLWk HB9IPvUdCCYfGlX5YgHdRBAjEGZmrn3PKYGzLAYjDW rkFQPiXFJpGDLtAZp4msOaxBCrJTx4MY2YL4FnfmCgIhVIKe2Df201RKK8IZTsXm3VW2iyJk8eXBFwRX YPLy5BHZb9KrsvLXDnZKOlLuWjYJNtJ7V5EdY7PPO2PLWdEWK8ByU+SWf1VXJ8PxOzFVOqHfPbBOHuRN qsPNy4WnzgDPZuDMW9Aw2vSSTCEe4+KOmxyBJfeEazXDKYTcBgKGO7GPlqMLHHKr7V ID Date Data Source [id number] 03/11/2021 08:16:00 PM EDT [facility] Name Value Range Interpretation Code Description Data Stephanie rce(s) Supporting Document(s) SARS coronavirus 2 RNA [Presence] in Res piratory specimen by [facility]DE[facility] with probe detection [facility]GAT[facility] was ordered by [facility] a nd reported by [facility]. ID Date Data Source [id number] 03/05/2021 09:30:00 PM EDT [facility] Name Value Range Interpretation Code Description Data Stephanie rce(s) Supporting Document(s) Respiratory specimen severe acute respir atory syndrome coronavirus 2 (SARS-CoV-2) RNA Negative (qualifier value) [facility] This lab was ordered by [facility] and reported by . ID Date Data Source [id number] 03/05/2021 10:26:00 PM EDT [facility] test? [facility]NOW[facility]ed in [facility] re? UNKNOWNSymptomatic per CDC? UNKNOWNIf yes date of onset? 03/05/21Hospitalized? UNKNOWNICU? UNKNOWNResident in congregated care? ex intermediate, [facility] YES? UNKNOWN Name Value Range Interpretation Code Description Data Stephanie rce(s) Supporting Document(s) SARS-CoV-2 RNA Negative Normal (applies to non-numeric r esults) [facility] Negative results should be treated as pr [...] Certificate of Accreditation. Factsheets for healthcare providers: https://www.fda.gov/media/943407/download Factsheets for patients: https://www.fda.gov/media/619228/download The ID NOW Instrument is a rapid molecular in vitro diagnostic test utilizing an isothermal nucleic acid amplification technology intended for the qualitative detection of nucleic acid from the SARS-CoV-2 viral RNA. THIS IS A STATE REPORTABLE COMMUNICABLE DISEASE. Manual entry verified by Aysha Andrade 03/05/212224 ID Date Data Source [id number] 03/05/2021 10:15:00 PM EDT [facility] Name Value Range Interpretation Code Description Data Stephanie rce(s) Supporting Document(s) Troponin I 0.000-0.056 Normal (applies to non-numeric resu lts) [facility] ID Date Data Source [id number] 03/05/2021 10:15:00 PM [facility] Name Value Range Interpretation Code Description Data Stephanie rce(s) Supporting Document(s) Acetaminophen 10.0-30.0 Below low normal [facility] ID Date Data Source [id number] 03/05/2021 10:15:00 PM EDT [facility] Name Value Range Interpretation Code Description Data Stephanie rce(s) Supporting Document(s) Magnesium 1.8-2.4 Normal (applies to non-numeric resul ts) [facility] ID Date Data Source [id number] 03/05/2021 10:15:00 PM T [facility] Name Value Range Interpretation Code Description Data Stephanie rce(s) Supporting Document(s) Sodium 142 mmol/L 136-145 Normal (applies to non-numeric resul ts) [facility] Potassium 3.5-5.1 Normal (applies to non-numeric resul ts) [facility] Chloride 107 mmol/L 98-107 Normal (applies to non-numeric resul ts) [facility] Carbon Dioxide CO2 21-32 Normal (applies to non-numer ic results) [facility] Anion Gap 5.0-16.0 Normal (applies to non-numeric resul ts) [facility] BUN 17 mg/dL 7-18 Normal (applies to non-numeric results) [facility] Creatinine,Serum 0.7-1.2 Normal (applies to non-numeric results) [facility] GFR >60 Normal (applies to non-numeric results) [facility] Glucose Level 93 mg/dL 60-99 Normal (applies to non-numeric re sults) [facility] Reference range is only applicable when patient is fasting Note the following drug interference: Sulfasalazine Sulfapyridine Can see falsely depressed Can see falsely elevated result with up to 17% results with up to 11% decrease in measurement increase in measurement Recommend patients be collected for this test prior to administration of either drug. Calcium 8.5-10.1 Normal (applies to non-numeric resul ts) [facility] Bilirubin,Total 0.1-1.9 Normal (applies to non-numeric results) [facility] SGOT(AST) 21 U/L 15-37 Normal (applies to non-numeric resul ts) [facility] Note the following drug interference: Sulfasalazine Sulfapyridine Can see falsely depressed Can see falsely elevated result with up to 10% results with up to 10% decrease in measurement increase in measurement Recommend patients be collected for this test prior to administration of either drug. SGPT(ALT) 43 U/L 12-78 Normal (applies to non-numeric resul ts) [facility] Note the following drug interference: Sulfasalazine Sulfapyridine Can see falsely depressed Can see falsely elevated result with up to 29% results with up to 10% decrease in measurement increase in measurement Recommend patients be collected for this test prior to administration of either drug. Alkaline Phosphatase 113 U/L 38-126 Normal (applies to non-num deena results) [facility] can increase Alkaline Phosp le vels up to 2 times the normal adult value. Normal values for children and adolescents are 2 to 3 times the normal adult value. Total Protein 6.0-8.2 Normal (applies to non-numeric re sults) [facility] Albumin Level 3.4-5.0 Normal (applies to non-numeric re sults) [facility] ID Date Data Source [id number] 03/05/2021 10:15:00 PM EDT [facility] Name Value Range Interpretation Code Description Data Stephanie rce(s) Supporting Document(s) Salicylate 2.8-20.0 Below low normal [facility] ID Date Data Source [id number] 03/05/2021 10:14:00 PM EDT [facility] Name Value Range Interpretation Code Description Data Stephanie rce(s) Supporting Document(s) Ethanol Less than 10.0 Normal (applies to non-numeric r esults) [facility] ID Date Data Source [id number] 03/05/2021 09:36:00 PM EDT [facility] Name Value Range Interpretation Code Description Data Stephanie rce(s) Supporting Document(s) White Blood Count 3.5-10.5 Above high normal [facility] Red Blood Count 3.90-5.00 Normal (applies to non-numeric results) [facility] Hemoglobin 12.0-15.5 Normal (applies to non-numeric resul ts) [facility] Hematocrit 34.9-44.5 Normal (applies to non-numeric resul ts) [facility] Mean Corpuscular Volume 81.2-95.1 Normal (applies to non- numeric results) [facility] Mean Corpuscular Hgb 25.6-32.2 Normal (applies to non-num deena results) [facility] Mean Corpuscular Hgb Conc 32.0-36.0 Normal (applies to no n-numeric results) [facility] Red Cell Distribution Width 11.9-15.5 Normal (appli es to non-numeric results) [facility] Platelet Count 258 x10 3/uL 150-450 Normal (applies to non-numeric results) [facility] Mean Platelet Volume 9.4-12.4 Normal (applies to non-num deena results) [facility] Neutrophils% (Auto) 31.0-71.0 Normal (applies to non-nume frank results) [facility] Lymphocytes% (Auto) 20.0-55.0 Normal (applies to non-nume frank results) [facility] Monocytes% (Auto) 4.0-12.0 Normal (applies to non-numeri c results) [facility] Eosinophils% (Auto) 1.0-8.0 Below low normal [facility] Basophils% (Auto) 0.0-2.0 Normal (applies to non-numeri c results) [facility] Immature Granulocytes% (Auto) 0.0-2.0 Normal (alexander lies to non-numeric results) [facility] Neutrophils# (Auto) 1.50-6.20 Above high normal [facility] Lymphocytes# (Auto) 1.20-4.00 Normal (applies to non-nume frank results) [facility] Monocytes# (Auto) 0.00-0.90 Normal (applies to non-numeri c results) [facility] Eosinophils# (Auto) 0.00-0.50 Normal (applies to non-nume frank results) [facility] Basophils# (Auto) 0.00-0.20 Normal (applies to non-numeri c results) [facility] Immature Granulocytes# (Auto) 0.00-7.00 No rmal (applies to non-numeric results) [facility] ID Date Data Source [id number] 03/05/2021 10:00:00 PM [facility] Collected By: Nurse Initials: ayleen wyatt Collected: 1999 Collected By: Nurse Initials: ayleen wyatt Collected: 1999 Collected By: Nurse Initials: ayleen wyatt Collected: 1999 Name Value Range Interpretation Code Description Data Stephanie rce(s) Supporting Document(s) RBC,Urine None Seen [facility] WBC,Urine None Seen [facility] Squamous Cells,Urine None Seen [facility] Amorphous Sediment,Urine None Seen [facility] Bacteria,Urine None Seen [facility] ital ID Date Data Source [id number] 03/05/2021 10:00:00 PM [facility] Collected By: Nurse Initials: ayleen wyatt Collected: 1999 Collected By: Nurse Initials: ayleen wyatt Collected: 1999 Collected By: Nurse Initials: ayleen wyatt Collected: 1999 Name Value Range Interpretation Code Description Data Stephanie rce(s) Supporting Document(s) Color,Urine Colorl-Dk Y Normal (applies to non-numeric res ults) [facility] Clarity,Urine Clear Normal (applies to non-numeric re sults) [facility] Specific [place],Urine 1.005-1.030 [facility] pH,Urine 5.0-8.0 Normal (applies to non-numeric resul ts) [facility] Protein,Urine Negative [facility] Glucose,Urine Negative Normal (applies to non-numeric re sults) [facility] Ketones,Urine Negative Normal (applies to non-numeric re sults) [facility] Blood,Urine Negative Normal (applies to non-numeric resu lts) [facility] Bilirubin,Urine Negative Normal (applies to non-numeric results) [facility] Urobilinogen,Urine 0.2-1.0 Normal (applies to non-numer ic results) [facility] Leukocyte Esterase,Urine Negative Normal (applies to non -numeric results) [facility] Nitrite,Urine Negative Normal (applies to non-numeric re sults) [facility] ID Date Data Source [id number] 03/05/2021 10:00:00 PM [facility] Collected By: Nurse Initials: ayleen wyatt Collected: 1999 Collected By: Nurse Initials: ayleen wyatt Collected: 1999 Collected By: Nurse Initials: ayleen wyatt Collected: 1999 Name Value Range Interpretation Code Description Data Stephanie rce(s) Supporting Document(s) HCG,Ur Negative Normal (applies to non-numeric results) [facility] ID Date Data Source [id number] 03/05/2021 08:25:00 PM [facility] Name Value Range Interpretation Code Description Data Stephanie rce(s) Supporting Document(s) UDS Benzodiazepines Screen Negative Normal (applies to n on-numeric results) [facility] UDS Cocaine Screen Negative Normal (applies to non-numer ic results) [facility] UDS Ampetamine Screen Negative Normal (applies to non-nu meric results) [facility] UDS Cannabinoids Screen Negative Normal (applies to non- numeric results) [facility] UDS Opiates Screen Negative Normal (applies to non-numer ic results) [facility] UDS Barbiturates Screen Negative Normal (applies to non- numeric results) [facility] Threshold Levels Benzodiazepine 200 ng/mL Cocaine 300 ng/mL Amphetamines 1000 ng/mL Cannabinoids (THC) 50 ng/mL Opiates 300 ng/mL Barbiturates 200 ng/mL All positive findings are presumptive and unconfirmed. Confirmation of positive results are performed only at request of provider. Unconfirmed results must not be used for non-medical purposes (i.e. preemployment and legal purposes) ID Date Data Source [id number] 03/04/2021 03:33:00 PM EDT [facility] Exam Number: [id number] Reported By: - JEREMIAH PEOPLES MD Signed By: JEREMIAH PEOPLES MD Name Value Range Interpretation Code Description Data Stephanie rce(s) Supporting Document(s) ID Date Data Source [id number] 03/03/2021 08:53:00 PM EDT [facility] Name Value Range Interpretation Code Description Data Stephanie rce(s) Supporting Document(s) [id number]-result CEPJogliID XPERT XPRESS SARS-CO V-2 REALTIME PCR ASSAY HAS EMERGENCY USE AUTHORIZATION (EUA) FROM THE FDA. [facility] This lab was ordered by [facility] and reported by [facility]. ID Date Data Source [id number] 03/03/2021 02:50:00 AM [facility] Name Value Range Interpretation Code Description Data Stephanie rce(s) Supporting Document(s) Respiratory specimen severe acute respir atory syndrome coronavirus 2 (SARS-CoV-2) RNA Negative (qualifier value) [facility] This lab [facility] and reported by . ID Date Data Source [id number] 03/03/2021 03:11:00 AM EDT [facility] test? UNKNOWNEmployed in healthca re? UNKNOWNSymptomatic per CDC? UNKNOWNHospitalized? UNKNOWNICU? UNKNOWNResident in congregated care? ex intermediate, ARC UNKNOWN? UNKNOWN Name Value Range Interpretation Code Description Data Stephanie rce(s) Supporting Document(s) SARS-CoV-2 RNA Negative Normal (applies to non-numeric r esults) [facility] Negative results should be treated as pr [...] Certificate of Accreditation. Factsheets for healthcare providers: https://www.fda.gov/media/796699/download Factsheets for patients: https://www.fda.gov/media/365832/download The ID NOW Instrument is a rapid molecular in vitro diagnostic test utilizing an isothermal nucleic acid amplification technology intended for the qualitative detection of nucleic acid from the SARS-CoV-2 viral RNA. THIS IS A STATE REPORTABLE COMMUNICABLE DISEASE. Manual entry verified by Marion Thompson 03/03/21 0311 ID Date Data Source [id number] 03/03/2021 02:26:00 AM EDT [facility] Name Value Range Interpretation Code Description Data Stephanie rce(s) Supporting Document(s) UDS Benzodiazepines Screen Negative Normal (applies to n on-numeric results) [facility] UDS Cocaine Screen Negative Normal (applies to non-numer ic results) [facility] UDS Ampetamine Screen Negative Normal (applies to non-nu meric results) [facility] UDS Cannabinoids Screen Negative Normal (applies to non- numeric results) [facility] UDS Opiates Screen Negative Normal (applies to non-numer ic results) [facility] UDS Barbiturates Screen Negative Normal (applies to non- numeric results) [facility] Threshold Levels Benzodiazepine 200 ng/mL Cocaine 300 ng/mL Amphetamines 1000 ng/mL Cannabinoids (THC) 50 ng/mL Opiates 300 ng/mL Barbiturates 200 ng/mL All positive findings are presumptive and unconfirmed. Confirmation of positive results are performed only at request of provider. Unconfirmed results must not be used for non-medical purposes (i.e. preemployment and legal purposes) ID Date Data Source [id number] 03/03/2021 02:21:00 AM EDT [facility] Collected By: Nurse Initials: [place] Time Collected: 015 Collected By: Nurse Initials: [place] Time Collected: 015 Name Value Range Interpretation Code Description Data Stephanie rce(s) Supporting Document(s) Color,Urine Colorl-Dk Y Normal (applies to non-numeric res ults) [facility] Clarity,Urine Clear Normal (applies to non-numeric re sults) [facility] Specific [place],Urine 1.005-1.030 [facility] pH,Urine 5.0-8.0 Normal (applies to non-numeric resul ts) [facility] Protein,Urine Negative Normal (applies to non-numeric re sults) [facility] Glucose,Urine Negative Normal (applies to non-numeric re sults) [facility] Ketones,Urine Negative Normal (applies to non-numeric re sults) [facility] Blood,Urine Negative Normal (applies to non-numeric resu lts) [facility] Bilirubin,Urine Negative Normal (applies to non-numeric results) [facility] Urobilinogen,Urine 0.2-1.0 Normal (applies to non-numer ic results) [facility] Leukocyte Esterase,Urine Negative Normal (applies to non -numeric results) [facility] Nitrite,Urine Negative Normal (applies to non-numeric re sults) [facility] ID Date Data Source [id number] 03/03/2021 02:21:00 AM EDT [facility] Collected By: Nurse Initials: [place] Time Collected: 157 Collected By: Nurse Initials: [place] Time Collected: 157 Name Value Range Interpretation Code Description Data Stephanie rce(s) Supporting Document(s) HCG,Ur Negative Normal (applies to non-numeric results) [facility] ID Date Data Source [id number] 03/03/2021 02:54:00 AM EDT [facility] Name Value Range Interpretation Code Description Data Stephanie rce(s) Supporting Document(s) D-Dimer,Quant 0.19-0.50 Normal (applies to non-numeric re sults) [facility] The negative predictive value for DVT or [...] on anticoagulant therapy. ID Date Data Source [id number] 03/03/2021 01:55:00 AM [facility] Name Value Range Interpretation Code Description Data Stephanie rce(s) Supporting Document(s) Ethanol Less than 10.0 Normal (applies to non-numeric r esults) [facility] ID Date Data Source [id number] 03/03/2021 01:55:00 AM [facility] Name Value Range Interpretation Code Description Data Stephanie rce(s) Supporting Document(s) Acetaminophen 10.0-30.0 Below low normal [facility] ID Date Data Source [id number] 03/03/2021 01:55:00 AM EDT [facility] Name Value Range Interpretation Code Description [facility] Supporting Document(s) Sodium 143 mmol/L 136-145 Normal (applies to non-numeric resul ts) [facility] Potassium 3.5-5.1 Normal (applies to non-numeric resul ts) [facility] Chloride 107 mmol/L 98-107 Normal (applies to non-numeric resul ts) [facility] Carbon Dioxide CO2 21-32 Normal (applies to non-numer ic results) [facility] Anion Gap 5.0-16.0 Normal (applies to non-numeric resul ts) [facility] BUN 20 mg/dL 7-18 Above high normal [facility] ospital Creatinine,Serum 0.7-1.2 Normal (applies to non-numeric results) [facility] GFR >60 Normal (applies to non-numeric results) [facility] Glucose Level 101 mg/dL 60-99 Above high normal [facility] Reference range is only applicable when patient is fasting Note the following drug interference: Sulfasalazine Sulfapyridine Can see falsely depressed Can see falsely elevated result with up to 17% results with up to 11% decrease in measurement increase in measurement Recommend patients be collected for this test prior to administration of either drug. Calcium 8.5-10.1 Normal (applies to non-numeric resul ts) [facility] Bilirubin,Total 0.1-1.9 Normal (applies to non-numeric results) [facility] SGOT(AST) 22 U/L 15-37 Normal (applies to non-numeric resul ts) [facility] Note the following drug interference: Sulfasalazine Sulfapyridine Can see falsely depressed Can see falsely elevated result with up to 10% results with up to 10% decrease in measurement increase in measurement Recommend patients be collected for this test prior to administration of either drug. SGPT(ALT) 44 U/L 12-78 Normal (applies to non-numeric resul ts) [facility] Note the following drug interference: Sulfasalazine Sulfapyridine Can see falsely depressed Can see falsely elevated result with up to 29% results with up to 10% decrease in measurement increase in measurement Recommend patients be collected for this test prior to administration of either drug. Alkaline Phosphatase 116 U/L 38-126 Normal (applies to non-num deena results) [facility] can increase Alkaline Phosp le vels up to 2 times the normal adult value. Normal values for children and adolescents are 2 to 3 times the normal adult value. Total Protein 6.0-8.2 Normal (applies to non-numeric re sults) [facility] Albumin Level 3.4-5.0 Normal (applies to non-numeric re sults) [facility] ID Date Data Source [id number] 03/03/2021 01:55:00 AM EDT [facility] Name Value Range Interpretation Code Description Data Stephanie rce(s) Supporting Document(s) Salicylate 2.8-20.0 Below low normal [facility] ospital ID Date Data Source [id number] 03/03/2021 01:55:00 AM [facility] Name Value Range Interpretation Code Description Data Stephanie rce(s) Supporting Document(s) Magnesium 1.8-2.4 Normal (applies to non-numeric resul ts) [facility] ID Date Data Source [id number] 03/03/2021 01:55:00 AM EDT [facility] Name Value Range Interpretation Code Description Data Stephanie rce(s) Supporting Document(s) Troponin I 0.000-0.056 Normal (applies to non-numeric resu lts) [facility] ID Date Data Source [id number] 03/[facility] Value Range Interpretation Code Description Data Stephanie rce(s) Supporting Document(s) White Blood Count 3.5-10.5 Above high normal [facility] Red Blood Count 3.90-5.00 Normal (applies to non-numeric results) [facility] Hemoglobin 12.0-15.5 Normal (applies to non-numeric resul ts) [facility] Hematocrit 34.9-44.5 Normal (applies to non-numeric resul ts) [facility] Mean Corpuscular Volume 81.2-95.1 Normal (applies to non- numeric results) [facility] Mean Corpuscular Hgb 25.6-32.2 Normal (applies to non-num deena results) [facility] Mean Corpuscular Hgb Conc 32.0-36.0 Normal (applies to no n-numeric results) [facility] Red Cell Distribution Width 11.9-15.5 Normal (appli es to non-numeric results) [facility] Platelet Count 274 x10 3/uL 150-450 Normal (applies to non-numeric results) [facility] Mean Platelet Volume 9.4-12.4 Below low normal [facility] Neutrophils% (Auto) 31.0-71.0 Normal (applies to non-nume frank results) [facility] Lymphocytes% (Auto) 20.0-55.0 Normal (applies to non-nume frank results) [facility] Monocytes% (Auto) 4.0-12.0 Normal (applies to non-numeri c results) [facility] Eosinophils% (Auto) 1.0-8.0 Below low normal [facility] Basophils% (Auto) 0.0-2.0 Normal (applies to non-numeri c results) [facility] Immature Granulocytes% (Auto) 0.0-2.0 Normal (alexander lies to non-numeric results) [facility] Neutrophils# (Auto) 1.50-6.20 Above high normal [facility] Lymphocytes# (Auto) 1.20-4.00 Normal (applies to non-nume frank results) [facility] Monocytes# (Auto) 0.00-0.90 Normal (applies to non-numeri c results) [facility] Eosinophils# (Auto) 0.00-0.50 Normal (applies to non-nume frank results) [facility] Basophils# (Auto) 0.00-0.20 Normal (applies to non-numeri c results) [facility] Immature Granulocytes# (Auto) 0.00-7.00 No rmal (applies to non-numeric results) [facility] ID Date Data Source [id number] 03/02/2021 11:08:00 AM EDT [facility] HEALTH CONSULTPATIENT NAME: YARELI HATCH MR#: [id number] PHYSICIAN:AUTHOR: Colleen SMITH,Bogdan DATE: #: ERPATIENT : 00HistoryHistory of Presenting IllnessPatient is 20-year-old female, currently single, lives at [facility], pastpsych history of borderline personality disorder, [...] And she wanted to be discharged backto [facility]. However upon asking how she is going to deal with the situationoutside where patient stated that she feels comfortable talking and having ameeting with [facility] staff tomorrow and try to solve the situation as well. Shestated that she was not suicidal, she wants to go back to [facility] and get some rest, she was also [...] SIGNED: 03/02/21 Electronically SignedTIME SIGNED: 1113 BOGDAN MACIAS MD Name Value Range Interpretation Code Description Data Stephanie rce(s) Supporting Document(s) ID Date Data Source [id number] 03/02/2021 04:06:00 AM EDT [facility] Name Value Range Interpretation Code Description Data Stephanie rce(s) Supporting Document(s) SALICYLATE < 1.7 mg/dL 0.0-20.0 [facility] ID Date Data Source [id number] 03/02/2021 04:06:00 AM EDT [facility] Name Value Range Interpretation Code Description Data Stephanie rce(s) Supporting Document(s) ACETAMINOPHEN < 2.0 ug/mL 0-30 [facility] ID Date Data Source [id number] 03/02/2021 04:06:00 AM EDT [facility] Name Value Range Interpretation Code Description Data Stephanie rce(s) Supporting Document(s) ETOH NONE DETECTED N [facility] NONE DETECTED ID Date Data Source [id number] 03/02/2021 04:06:00 AM EDT [facility] [place] Name Value Range Interpretation Code Description Data Stephanie rce(s) Supporting Document(s) GLU 120 mg/dL 70-110 [facility] Patients taking Sulfasalazine may have f alsely depressedGlucose levels. Patients taking Sulfapyridine may havefalsely elevated Glucose levels. Patients should be drawnfor Glucose before the initial administration of eitherdrug. BUN 16 mg/dL 7-23 [facility] CRE 0.685 mg/dL 0.500-1.300 [facility] GFR > 60 mL/min [facility] CHLORIDE 111 mmol/L 99-110 [facility] NA 141 mmol/L 136-147 [facility] POTASSIUM 3.6 mmol/L 3.5-5.1 [facility] TCO2 18 mmol/L 20-33 [facility] ANION GAP 15.6 10.0-20.0 [facility] CA 8.5 mg/dL 8.3-10.7 [facility] ALKALINE PHOS 118 U/L 45-117 [facility] TP 7.5 g/dL 6.0-7.8 [facility] ALB 3.7 g/dL 3.5-5.0 [facility] ESRD Dialysis patient Albumin reference range: 2.9-4.4 g/dL GL 3.8 g/dL 2.3-3.5 [facility] A/G 1.0 1.0-2.5 [facility] T. BILIRUBIN 0.2 mg/dL 0.1-1.1 [facility] The Dimension [place] Total Bilirubin is n ot recommended forpatients undergoing treatment with eltrombopag (Promacta)due to the potential for falsely elevated results. ALTI 43 U/L 6-54 [facility] Patients taking Sulfasalazine and/or Sul fapyridine may havefalsely depressed ALT levels. Patients should be drawn forALT before the initial administration of either drug. AST 21 U/L 6-38 [facility] Patients taking Sulfasalazine and/or Sul fapyridine may havefalsely depressed AST levels. Patients should be drawn forAST before the initial administration of either drug. ID Date Data Source [id number] 03/02/2021 03:12:00 AM EDT [facility] Name Value Range Interpretation Code Description Data Stephanie rce(s) Supporting Document(s) WBC 9.90 x10E3/uL 4.0-10.5 [facility] RBC 4.15 x10E6/uL 4.20-5.40 [facility] Hemoglobin 12.4 g/dL 12.0-16.0 [facility] Hematocrit 37.0 % 37.0-47.0 [facility] MCV 89.2 fL 81.0-99.0 [facility] MCH 29.9 pg 27.0-31.0 [facility] MCHC 33.5 g/dL 32.7-35.6 [facility] RDW 12.4 % 11.5-14.0 [facility] Platelet count 243 x10E3/uL 150-450 [facility] ital MPV 9.9 fl 6.9-9.5 [facility] Neutrophils 61.6 % 34-64 [facility] Lymphocytes 29.1 % 25-45 [facility] Monocytes 7.2 % 1.7-10.6 [facility] Eosinophils 1.3 % 0.4-7.0 [facility] Basophils 0.3 % 0.1-2.0 [facility] Imm. Gran. 0.5 % 0.1-2.0 [facility] Abs. Neutro. 6.10 x10E3/uL 1.2-7.6 [facility] Abs. Lymph. 2.88 x10E3/uL 1.0-3.5 [facility] Abs. Kerr. 0.71 x10E3/uL 0.1-1.0 [facility] Abs. Eosin. 0.13 x10E3/uL 0.1-0.7 [facility] Abs. Baso. 0.03 x10E3/uL 0.0-0.1 [facility] Abs. Imm. Gran. 0.05 x10E3/uL 0.0-0.1 [facility] ANRBC% 0 % 0 [facility] ID Date Data Source [id number] 03/02/2021 03:28:00 AM EDT [facility] Name Value Range Interpretation Code Description Data Stephanie rce(s) Supporting Document(s) PCP VISTA NEG NEGATIVE [facility] MINIMUM LEVEL OF DETECTION IS 25 ng/ml BENZODIAZEPINES [facility] LEV[facility] OF DETECTION IS 200 ng/ml COCAINE VISTA NEG NEGATIVE [facility] MINIMUM LEVEL OF DETECTION IS 300 ng/ml AMPHETAMINES NEG NEGATIVE [facility] MINIMUM LEVEL OF DETECTION IS 1000 ng/ml BARBITURATES NEG NEGATIVE [facility] CUTOFF CONCENTRATION IS 200 ng/ml CANNABINOIDS NEG NEGATIVE [facility] CUTOFF CONCENTRATION IS 50 ng/ml METHADONE VISTA NEG NEGATIVE [facility] MINIMUM LEVEL OF DETECTION IS 300 ng/ml OPIATE VISTA NEG NEGATIVE [facility] MINIMUM DETECTION LEVEL IS 300 ng/ml ID Date Data Source [id number] 03/02/2021 03:15:00 AM EDT [facility] Name Value Range Interpretation Code Description Data Stephanie rce(s) Supporting Document(s) HCG QUAL URINE Negative Negative [facility] ID Date Data Source [id number] 03/02/2021 03:15:00 AM EDT [facility] Name Value Range Interpretation Code Description Data Stephanie rce(s) Supporting Document(s) URINE COLOR Yellow [facility] UAPR Cloudy [facility] UGLU Negative NEGATIVE [facility] URINE BILIRUBIN [facility] UKET Trace NEGATIVE [facility] USG 1.028 1.010-1.025 [facility] UBLO Negative NEGATIVE [facility] UpH 5.0 5.0-8.0 [facility] UPRO Negative Negative [facility] UUB 1.0 mg/dL 0.2-1.0 [facility] UNIT Negative Negative [facility] ULEU Negative Negative [facility] ID Date Data Source [id number] 03/02/2021 11:27:00 AM EDT [facility] Physician DocumentationClaxton-Naveen M edical CenterName: Yareli DuvallAge: 20 yrsSex: FemaleDOB: 2000MRN: [id number] Date: 03/02/2021Time: 02:30Account#: [id number] MD: NONE, - Per PatientED Physician Nils ArguetaDiszach Summary:03/02/21 11:12Discharge OrderedLocation: Home Self Care afProblem: an ongoing problem afSymptoms: are unchanged afCondition: Stable afDiagnosis- Adjustment disorder, unspecified afFollowup: af- With: Private Physician- When: 1 week- Reason: Recheck today's complaintsDischarge Instructions:- ADJUSTMENT DISORDER af- Discharge Summary Sheet [id number]:- Medication Reconciliation af- Medication Reconciliation Form - 2nd Copy afHPI:02/2202:50 This 20 yrs old White Female presents to ER via Police with [id number] of Psych Problem.02:50 Associated signs and symptoms: Pertinent negatives: abdominal pain, tu3jojqq pain, fever, headache, nausea, shortness of breath, [...] denies any other problems or any other complaints..LEGAL LIBRARIAN:02:35 LMP N/A - Irregular menses [id number]:- Allergies: Haldol; Risperdal;- Home Meds:1. ibuprofen 400 [...] Temp 97.7; Pulse Ox 96% ; Weight ej5988.33 kg; Height 5 ft. 7 in. (170.18 cm);11:27 BP 124 / 76; Pulse 88; Resp 20; Temp 98; Pulse Ox 98% on R/A; fbg02:35 Body Mass Index 36.02 (104.33 kg, 170.18 cm) jw5MDM:02:40 Patient medically screened. th406:41 Data reviewed: vital signs, nurses notes, lab test result(s). ED [id number]: Patient remained stable in the ER. Patient here for mentalhealth evaluation as above. Case is endorsed to Dr. Rica oliver of shift pending PSA evaluation and disposition. Patient ismedically clear and has been cooperative..02/2202:38 Order name: Acetaminophen Level; Complete Time: :38 Order name: CBC with diff; Complete Time: : Order name: CMP; Complete Time: :38 Order name: ETOH; Complete Time: :38 Order name: Glucose :38 Order name: Salicylate Level; Complete Time: : Order name: Triage - Drug Screen; Complete Time: :: Order name: UA; Complete Time: ::38 Order name: Urine HCG Qualitative; Complete Time: :: Order name: Diet - Mental Health Tray (call dietary); Complete Time: [id number]/2202:38 Order name: Belongings List :38 Order name: Document Weight and Height for BMI; Complete Time: 04:50 : Order name: Mental Health Evaluation :38 Order name: Mental Health Level 3; Complete Time: 04:50 :38 Order name: VS q shift; Complete Time: 04:50 :28 Order name: Medically Cleared for Eval by-Psychosocial, Cd Mixer Helper th4(.PSA); Complete Time: 07:27Dispensed Medications:No medications were administeredSignatures:Dispatcher MedHost Anshul Loving MD MD afHowland, Todd, MD MD pn2DyviaFortunato Mark RN RN fx5EzvqeRatna mccallum RN RN kk3 Name Value Range Interpretation Code Description Data Stephanie rce(s) Supporting Document(s) ID Date Data Source [id number] 03/02/2021 11:27:00 AM EDT [facility] terName: Yareli DuvallAge: 20 yrsSex: FemaleDOB: 2000MRN: [id number] Date: 03/02/2021Time: 02:30Account#: [id number] 5APrivate MD: NONE, - Per PatientDiagnosis: Adjustment disorder, unspecifiedPresentation:02/2202:32 Presenting complaint: Patient brought in by [employer] officer Noel Huerta for [address] evaluation for suicidal thoughts. International TravelFever No. Coronavirus Screening: Have you been diagnosed withCOVID-19 in the past 30 days? no [facility] no Flu-like symptoms reported in the last 14 days: no.Have you had close contact with confirmed or suspected COVID-19 case?no Do you live in a setting where a large of amount of people live,such as intermediate, family care, nursing home, etc? no. Have you traveledto a location with widespread or ongoing COVID-19 community spread [facility]? no Have you traveled internationally or hadcontact with someone that has traveled and has been ill in the past 3weeks? no Have you received the COVID vaccine? Yes. CommunicableDisease Screen: Negative for fever>/= 100 degrees Fahrenheit.Communicable disease screen is negative. (-) rash or unusual skinlesion (-) travel/contact with traveler (-) respiratory symptoms.Communication Speaks Wallisian? Yes, is preferred language.02:32 Acuity: Triage 2 jw502:32 Method Of Arrival: Police jw502:34 Acuity Assignment: Triage 2 gu2Qwphio Assessment:02:34 Sepsis Screening: (1)Signs/symptoms infection Sepsis is not em2wewmysxjm. Pain: Denies pain. PSS-3 Now I'm going [...] noted. : No deficits noted. Musculoskeletal: Nodeficits noted.LEGAL LIBRARIAN:02:35 LMP N/A - Irregular menses fl4Lodfvaagns:- Allergies: Haldol; Risperdal;- Home Meds:1. ibuprofen 400 [...] threats or abuse. Denies injuries from another. ir6Mznjxupxfjj screening: No deficits noted. Offer of HIV [...] in no apparent distress at this time. yp8Pufzjel is asleep.06:12 Reassessment: Patient appears in no apparent distress at this time. ha7Ztakrpbcgkko:10:54 SAFE Act Report Not Completed. Intervention: Observation Level 3. [address] health consult is initiated at 10:10. Referral Information:Evaluation referral is generated by the patient himself / herself.The patient was referred for evaluation because Suicidal Ideation.10:57 Subjective: The patients chief complaint is SI. Patient is a 20 y/o sa7tdkhw female who was discharged from the inpatient MHU within 10hours of returning to the ED with SI complaints. Pt. was re-evaluatedby Dr. Macias in the ed was was able to contract for safety. Pt isbeing discharged per Dr. Macias who believes patient is not a danger toself or others at this time.. Patient reports history of anxiety,Bipolar Disorder, Depression, Mental Health Admissions: multiple.Current Outpatient Mental Health Services: Psychiatrist / Agency: [facility] Walk-In appointment in [place] on Wednesday.. LivingEnvironment:. Patient presents to Emergency [...] of patients status at 11:05, Mental Health REWINDER OPERATOR made awareof pt status at 11:05. Disposition: The patient has a safedestination which is Patient is being discharged back to [facility]. DSM-V DX [place] I diagnosis: Adjustment D/O w mixedemotion, conduct. The patient is not a family service center director or militarydependent. Mayes Suicide Severity Rating Scale: Suicidal IdeationRating 0; Intensity of Ideations Rating 0; Suicidal Behavior Rating 0.Psych:02:37 Subjective: Patient's mood is sad, Delusions are denied, qp4Mzcodcsbxkozbz are denied Having thoughts of suicide. Denies [...] Temp 97.7; Pulse Ox 96% ; Weight lp5175.33 kg; Height 5 ft. 7 in. (170.18 [...] armband on for positive identification. Placed in pc6zgpb. Bed in low position. Side rails up [...] Disposition: Discharged to home ambulatory. fbg11:27 Condition: fccimzrce93:27 Discharge instructions given to patient, Instructed on dischargeinstructions, follow up and referral plans. medication usage.11:27 Discharge Assessment: Patient awake, alert and oriented x 3. Nocognitive and/or functional deficits noted. Patient verbalizedunderstanding of disposition instructions. Patient verbalizedunderstanding of disposition instructions. Patient has no functionaldeficits.11:27 Patient left the ED. fbgSignatures:Vincenzo Luis RN RN fbgFedoroAnshul casillas MD MD afStickles, Robert, PSA PSA vn4PyuezggNils Argueta MD MD bv6JfpdkFortunato humphrey RN RN qf8ErwbrRatna Barbosa RN RN do5Pmzzhmgnygw: (The following items were deleted from the chart)11:06 10:54 Referral Information: Evaluation referral is generated by the av1dctbupp himself / herself. rs2 Name Value Range Interpretation Code Description Data Stephanie rce(s) Supporting Document(s) ID Date Data Source [id number] 03/01/2021 11:36:00 AM EDT [address] CONSULTPATIENT NAME: YARELI HATCH MR#: [id number] PHYSICIAN:AUTHOR: Kary Gray NP DATE: #: ERPATIENT : 00HistoryHistory of Presenting IllnessPatient is 20-year-old female, currently lives [facility], past psychhistory of mood disorder, borderline [...] stated that she has a friend from [place] that she talksand that friend treats her really well at this point. [place], stating that she wants to enjoy beautiful [...] rce(s) Supporting Document(s) ID Date Data Source [id number] 03/01/2021 08:18:00 AM EDT [facility] Name Value Range Interpretation Code Description Data Stephanie rce(s) Supporting Document(s) LCOVID-19, CORDELL NEGATIVE [facility] This lab was ordered by [facility] and reported by [facility]. ID Date Data Source [id number] 03/01/2021 08:55:00 AM EDT [facility] Name Value Range Interpretation Code Description Data Stephanie rce(s) Supporting Document(s) COVID-19, CORDELL NEGATIVE NEGATIVE N [facility] Methodology: Isothermal Nucleic Acid Amp lification [...] Emergency Use Authorization. ID Date Data Source [id number] 02/28/2021 10:15:00 PM EDT [facility] Name Value Range Interpretation Code Description Data Stephanie rce(s) Supporting Document(s) PCP VISTA NEG NEGATIVE [facility] MINIMUM LEVEL OF DETECTION IS 25 ng/ml BENZODIAZEPINES NEG NEGATIVE [facility] al MINIMUM LEVEL OF DETECTION IS 200 ng/ml COCAINE VISTA NEG NEGATIVE [facility] MINIMUM LEVEL OF DETECTION IS 300 ng/ml AMPHETAMINES NEG NEGATIVE [facility] al MINIMUM LEVEL OF DETECTION IS 1000 ng/ml BARBITURATES NEG NEGATIVE [facility] al CUTOFF CONCENTRATION IS 200 ng/ml CANNABINOIDS NEG NEGATIVE [facility] al CUTOFF CONCENTRATION IS 50 ng/ml METHADONE VISTA NEG NEGATIVE [facility] al MINIMUM LEVEL OF DETECTION IS 300 ng/ml OPIATE VISTA NEG NEGATIVE [facility] MINIMUM DETECTION LEVEL IS 300 ng/ml ID Date Data Source [id number] 02/28/2021 09:59:00 PM EDT [facility] Name Value Range Interpretation Code Description Data Stephanie rce(s) Supporting Document(s) URINE COLOR Yellow [facility] UAPR Clear [facility] UGLU Negative NEGATIVE [facility] URINE BILIRUBIN Negative NEGATIVE [facility] al UKET Trace NEGATIVE [facility] USG 1.028 1.010-1.025 [facility] UBLO Negative NEGATIVE [facility] UpH 6.0 5.0-8.0 [facility] UPRO Negative Negative [facility] UUB 1.0 mg/dL 0.2-1.0 [facility] UNIT Negative Negative [facility] ULEU Negative Negative [facility] ID Date Data Source [id number] 02/28/2021 09:59:00 PM EDT [facility] Name Value Range Interpretation Code Description Data Stephanie rce(s) Supporting Document(s) HCG QUAL URINE Negative Negative N [facility] ID Date Data Source [id number] 02/28/2021 10:15:00 PM [facility] Name Value Range Interpretation Code Description Data Stephanie rce(s) Supporting Document(s) SALICYLATE < 1.7 mg/dL 0.0-20.0 [facility] ID Date Data Source [id number] 02/28/2021 10:15:00 PM EDT [facility] Name Value Range Interpretation Code Description Data Stephanie rce(s) Supporting Document(s) ACETAMINOPHEN < 2.0 ug/mL 0-30 [facility] Date Data Source [id number] 02/28/2021 10:15:00 PM EDT [facility] Name Value Range Interpretation Code Description Data Stephanie rce(s) Supporting Document(s) ETOH NONE DETECTED [facility] NONE DETECTED ID Date Data Source [id number] 02/28/2021 10:15:00 PM EDT [facility] Name Value Range Interpretation Code Description Data Stephanie rce(s) Supporting Document(s) GLU 98 mg/dL 70-110 [facility] Patients taking Sulfasalazine may have f alsely depressedGlucose levels. Patients taking Sulfapyridine may havefalsely elevated Glucose levels. Patients should be drawnfor Glucose before the initial administration of eitherdrug. BUN 14 mg/dL 7-23 [facility] CRE 0.645 mg/dL 0.500-1.300 [facility] GFR > 60 mL/min [facility] CHLORIDE 109 mmol/L 99-110 [facility] NA 140 mmol/L 136-147 [facility] POTASSIUM 3.6 mmol/L 3.5-5.1 [facility] TCO2 22 mmol/L 20-33 [facility] ANION GAP 12.6 10.0-20.0 [facility] CA 8.6 mg/dL 8.3-10.7 [facility] ALKALINE PHOS 114 U/L 45-117 [facility] TP 7.3 g/dL 6.0-7.8 [facility] ALB 3.6 g/dL 3.5-5.0 [facility] ESRD Dialysis patient Albumin reference range: 2.9-4.4 g/dL GL 3.7 g/dL 2.3-3.5 [facility] A/G 1.0 1.0-2.5 [facility] T. BILIRUBIN 0.3 mg/dL 0.1-1.1 [facility] The Dimension [place] Total Bilirubin is n ot recommended forpatients undergoing treatment with eltrombopag (Promacta)due to the potential for falsely elevated results. ALTI 44 U/L 6-54 [facility] Patients taking Sulfasalazine and/or Sul fapyridine may havefalsely depressed ALT levels. Patients should be drawn forALT before the initial administration of either drug. AST 18 U/L 6-38 [facility] Patients taking Sulfasalazine and/or Sul fapyridine may havefalsely depressed AST levels. Patients should be drawn forAST before the initial administration of either drug. ID Date Data Source [id number] 02/28/2021 10:03:00 PM EDT [facility] [place] Name Value Range Interpretation Code Description Data Stephanie rce(s) Supporting Document(s) WBC 10.31 x10E3/uL 4.0-10.5 [facility] l RBC 4.19 x10E6/uL 4.20-5.40 [facility] Hemoglobin 12.3 g/dL 12.0-16.0 [facility] Hematocrit 37.1 % 37.0-47.0 [facility] MCV 88.5 fL 81.0-99.0 [facility] MCH 29.4 pg 27.0-31.0 [facility] MCHC 33.2 g/dL 32.7-35.6 [facility] RDW 12.2 % 11.5-14.0 [facility] Platelet count 274 x10E3/uL 150-450 [facility] ital MPV 9.7 fl 6.9-9.5 [facility] Neutrophils 60.8 % 34-64 [facility] Lymphocytes 29.1 % 25-45 [facility] Monocytes 8.0 % 1.7-10.6 [facility] Eosinophils 1.4 % 0.4-7.0 [facility] Basophils 0.2 % 0.1-2.0 [facility] Imm. Gran. 0.5 % 0.1-2.0 [facility] Abs. Neutro. 6.28 x10E3/uL 1.2-7.6 N [facility] Abs. Lymph. 3.00 x10E3/uL 1.0-3.5 [facility] Abs. Kerr. 0.82 x10E3/uL 0.1-1.0 [facility] Abs. Eosin. 0.14 x10E3/uL 0.1-0.7 [facility] Abs. Baso. 0.02 x10E3/uL 0.0-0.1 [facility] Abs. Imm. Gran. 0.05 x10E3/uL 0.0-0.1 [facility] spital ANRBC% 0 % 0 [facility] ID Date Data Source [id number] 03/01/2021 12:39:00 PM EDT [facility] Physician DocumentationClaxlexy-Naveen Hinkle edical CenterName: Yareli DuvallAge: 20 yrsSex: FemaleDOB: 2000MRN: [id number] Date: 02/28/2021Time: 21:08Account#: [id number] 3Private MD: NONE, - Per PatientED Physician Nils ArguetaDiszach Summary:03/01/21 11:57Discharge OrderedLocation: Home Self Care afProblem: an ongoing problem afSymptoms: are unchanged afCondition: Stable afDiagnosis- Bipolar disorder, unspecified afFollowup: af- With: Private Physician- When: 1 week- Reason: Recheck today's complaintsDischarge Instructions:- BIPOLAR DISORDER af- Discharge Summary Sheet lh96Hbaci:- Medication Reconciliation af- Medication Reconciliation Form - 2nd Copy afHPI:02/2021:26 This 20 yrs old White Female presents to ER via Police with bv7udepsigqmw of Psych Problem.21:26 Associated signs and symptoms: Pertinent negatives: abdominal pain, dj7zerzy pain, fever, headache, nausea, shortness of breath, [...] Temp 97.8; Pulse Ox 97% ; Weight gt5666.95 kg; Height 5 ft. 6 in. (167.64 cm);22:59 BP 120 / 64; Pulse 75; Resp 16; Pulse Ox 97% ; jw508/2112:37 ml408/2020:15 Body Mass Index 38.41 (107.95 kg, 167.64 cm) jw512:37 refused vitals ml4MDM:02/2021:11 Patient medically screened. th408/2106:53 Data reviewed: vital signs, nurses notes, lab test result(s). ED gw5tvlanr: Patient remained stable in the ER. Patient here for mentalhealth evaluation as above. Case is endorsed to Dr. Rica oliver of shift pending PSA evaluation disposition. Patient ismedically clear and has been cooperative..02/2021:18 Order name: Acetaminophen Level; Complete Time: :15 :18 Order name: CBC with diff; Complete Time: :15 :18 Order name: CMP; Complete Time: 22:15 :18 Order name: ETOH; Complete Time: :15 :18 Order name: Glucose :18 Order name: Salicylate Level; Complete Time: :15 :18 Order name: Triage - Drug Screen; Complete Time: :15 :18 Order name: UA; Complete Time: :15 :18 Order name: Urine HCG Qualitative; Complete Time: ::17 Order name: COVID-19 PROFILE+LAB; Complete Time: 12:00 :18 Order name: Diet - Mental Health Tray (call dietary); Complete Time: jw523:00002/2021:18 Order name: Belongings List :18 Order name: Document Weight and Height for BMI; Complete Time: 23:00 :18 Order name: Mental Health Evaluation; Complete Time: 00:43 :18 Order name: Mental Health Level 3; Complete Time: 23:00 :18 Order name: VS q shift; Complete Time: 23:00 :16 Order name: Medically Cleared for Eval by- Psychosocial, Cd Mixer Helper th4(.PSA); Complete Time: 04::17 Order name: EKG in Patient's Room; Complete Time: 08:31 :17 Order name: EKG.; Complete Time: 08:31 fbgDispensed Medications:02/2023:22 Drug: Latuda 80 mg Route: PO; sc:22 Follow up: Response: No adverse reaction sc: Drug: Prazosin 1 mg Route: PO; sc:43 Follow up: Response: No adverse reaction sc: Drug: Propranolol 10 mg Route: PO; sc:22 Follow up: Response: No adverse reaction 3:22 Drug: pravastatin Sodium 20 mg Route: PO; sc308/2100:32 Follow up: Response: No adverse reaction sc307:06 Drug: Acetaminophen 650 mg [acetaminophen 325 mg tablet (2 tabs)] sq7Oovbf: PO;09:45 Drug: Propranolol 10 mg [propranolol 10 mg tablet (1 tabs)] Route: PO;fbg09:46 Drug: sertraline 150 mg [sertraline 50 mg tablet (3 tabs)] Route: PO; fbg09:46 Drug: Topiramate 75 mg [topiramate 25 mg tablet (3 tabs)] Route: PO; fbgSignatures:Dispatcher MedHost Vincenzo Acosta, RN RN fbgFedorowijorgito, MD MD Amaury Gonzáles Todd, MD MD vt0YnvwwFortunato humphrey RN RN bc5Ohqcfhmy, Geno RN RN sc3 Name Value Range Interpretation Code Description Data Stephanie rce(s) Supporting Document(s) ID Date Data Source [id number] 03/01/2021 12:39:00 PM EDT [facility] Nurse's NotesClaxCapital [facility] terName: Yareli DuvallAge: 20 yrsSex: FemaleDOB: 2000MRN: [id number] Date: 02/28/2021Time: 21:08Account#: [id number] MD: NONE, - Per PatientDiagnosis: Bipolar [...] of amount of people live, such as intermediate, familycare, nursing home, etc? no. Have you traveled to a location with widespreador ongoing COVID-19 community spread or outside of [facility]? no Haveyou traveled internationally or had contact with someone that hastraveled and has been ill in the past 3 weeks? no Have you receivedthe COVID vaccine? Yes. Communicable Disease Screen: Negative forfever>/= 100 degrees Fahrenheit. Communicable disease screen isnegative. (-) rash or unusual skin lesion (-) travel/contact withtraveler (-) respiratory symptoms. Communication Speaks Wallisian? Yes,is preferred language.21:09 Acuity: Triage 2 jw521:09 Method Of Arrival: Police jw521:11 Acuity Assignment: Triage 2 ru4Jfqnhn Assessment:21:14 General: Appears in no apparent distress, Behavior is cooperative. vy4Vkdxjz Screening: (1)Signs/symptoms infection Sepsis is notsuspected. Pain: [...] threats or abuse. Denies injuries from another. pr9Vylvmqrfncv screening: No deficits noted. Offer of HIV testing:patient was previously offered screening. Fall Risk None identified.Assessment:22:58 Reassessment: Patient appears in no apparent distress at this time. jw508/2112:36 Reassessment: No changes from previously documented assessment. gw6Xvnfjpjynukq:02/2022:21 SAFE Act Report Not Completed. Intervention: Observation [...] Pt states that she was inpatient at [facility] from02/21/21-02/25/21. Pt states that [facility] and she has anappointment next week but [...] guns. Pt statesthat she has court in [place] on March 18. Pt does not presentwith delusional thoughts. Delusions are denied, Hallucinations aredenied. Patient's mood is depressed, Having thoughts of suicide. Planfor suicide is jumping into trffic. Patient reports history ofanxiety, Bipolar Disorder, Depression, self - mutilation, suicideattempt: many Mental Health Admissions: 02/21-02/25/2021 [facility] Outpatient Mental Health Services: Psychiatrist / Agency:[facility]. Living Environment: Family /Home Support: poor The [...] informed of patient's status at 11:53, ED IUiq89yiljkcss of patients status at 11:53. Disposition: Medically clearedfor disposition by Dr Argueta. Psychiatric Consult is performed byphone with Dr Macias The patient has a safe destination which is Ptwill be discharged home per Dr. Colleen. Pt can contract for safety anddenies SI/HI. Pt will follow up with [facility]. Pt provided contactinformation for PSA and [employer]. Pt will come to the ED if problemscontinue or worsen. DSM-V DX [place] I diagnosis: Bipolar D/O, depressedAxis II diagnosis: Deferred [place] III diagnosis: None. [place] IVdiagnosis: poor impulse control. The patient is not a service memberor dependent. Mayes Suicide Severity Rating Scale:Suicidal Ideation Rating 0; Intensity of Ideations Rating 0; SuicidalBehavior Rating 0.Psych:02/2021:18 Subjective: Patient's mood is irritable, Delusions are denied, qp6Jmcfsztekcyyqq are denied Having thoughts of suicide. Plan [...] Temp 97.8; Pulse Ox 97% ; Weight xm1243.95 kg; Height 5 ft. 6 in. (167.64 cm);22:59 BP 120 / 64; Pulse 75; Resp 16; Pulse Ox 97% ; jw508/2112:37 ml408/2021:15 Body Mass Index 38.41 (107.95 kg, 167.64 cm) jw512:37 refused vitals ml4ED Course:02/2021:09 Patient arrived in ED. jw521:09 NONE, - Per Patient is Private Physician. jw521:11 Triage completed. jw521:11 Nils Argueta MD is Attending Physician. th422:59 Patient has correct armband on for positive identification. Bed in jw5low position. Sitter at bedside.22:59 No Physician assisted procedures completed. jw523:21 Geno Meléndez, RN is Primary Nurse. sc308/2101:00 Sitter at bedside. [...] sc:22 Drug: Prazosin 1 mg Route: PO; sc308/2099:43 Follow up: Response: No adverse reaction sc:22 Drug: Propranolol 10 mg Route: PO; sc:22 Follow up: Response: No adverse reaction sc:22 Drug: pravastatin Sodium 20 mg Route: PO; sc308:32 Follow up: Response: No adverse reaction sc307:06 Drug: Acetaminophen 650 mg [acetaminophen 325 mg tablet (2 tabs)] ng0Inkkt: PO;09:45 Drug: Propranolol 10 mg [propranolol 10 [...] Demonstrated understanding of after discussing with Dr Macias patientwas able to write out five goals and five coping skills, pt deniescurrent suicidal ideation and felt ready to go home12:37 Discharge Assessment: Patient verbalized understanding of dispositioninstructions. Patient has no functional deficits.12:39 Patient left the ED. nt9Wpzhoiukbr:Vincenzo Luis RN RN fbgFortunato Bhat ESA ESA jabFedorowicz, Arthur, MD MD Nils Argueta MD MD po7HijstFortunato humphrey RN RN uz5Lowy, Ina danielbz04Euuinb, Marianna Merrill, Danae, RN RN lj2Kwtswwog, Geno, RN RN sc3 Name Value Range Interpretation Code Description Data Stephanie rce(s) Supporting Document(s) ID Date Data Source [id number] 02/26/2021 08:59:13 AM EDT [facility] Name Value Range Interpretation Code Description Data Stephanie rce(s) Supporting Document(s) Discharge Summary [facility] LSYUOo2nIbGYFiLu56/WUXwaYJXor2DpPDqnHDj9TEvfANAwC8MkZNV4qL9zZKH6KVoBBgBmAhWhMEL1 m [file] ICAgICAgICAgICAgICAgICAgICAgICAgICAgICAgIC AgICAgICAgICAgICAgICAgICAgICAgICAgICAgICAgDQogICAgICAgICAgICAgICAgICAgICAgICAgIC AgICAgICAgICAgICAgICAgICAgICAgICAgICAgICAgICAgICAgICAgICAgICAgICAgICAgICAgICAgIC AgICAgICAgICAgICAgDQogICAgICAgICAgICAgICAg ICAgICAgICAgICAgICAgICAgICAgICAgICAgICAgICAgICAgICAgICAgICAgICAgICAgICAgICAgICAg ICAgICAgICAgICAgICAgICAgICAgICAgDQogICAgICAgICAgICAgICAgICAgICAgICAgICAgICAgICAg ICAgICAgICAgICAgICAgICAgICAgICAgICAgICAgIC AgICAgICAgICAgICAgICAgICAgICAgICAgICAgICAgICAgDQogICAgICAgICAgICAgICAgICAgICAgIC AgICAgICAgICAgICAgICAgICAgICAgICAgICAgICAgICAgICAgICAgICAgICAgICAgICAgICAgICAgIC AgICAgICAgICAgICAgICAgDQogICAgICAgICAgICAg ICAgICAgICAgICAgICAgICAgICAgICAgICAgICAgICAgICAgICAgICAgICAgICAgICAgICAgICAgICAg ICAgICAgICAgICAgICAgICAgICAgICAgICAgDQogICAgICAgICAgICAgICAgICAgICAgICAgICAgICAg ICAgICAgICAgICAgICAgICAgICAgICAgICAgICAgIC AgICAgICAgICAgICAgICAgICAgICAgICAgICAgICAgICAgICAgDQogICAgICAgICAgICAgICAgICAgIC AgICAgICAgICAgICAgICAgICAgICAgICAgICAgICAgICAgICAgICAgICAgICAgICAgICAgICAgICAgIC AgICAgICAgICAgICAgICAgICAgDQogICAgICAgICAg ICAgICAgICAgICAgICAgICAgICAgICAgICAgICAgICAgICAgICAgICAgICAgICAgICAgICAgICAgICAg ICAgICAgICAgICAgICAgICAgICAgICAgICAgICAgDQogICAgICAgICAgICAgICAgICAgICAgICAgICAg ICAgICAgICAgICAgICAgICAgICAgICAgICAgICAgIC TyZZNzOWKaRAXpMPHcMYLvAWTiBDNuAEKhXEHbXVBeBDCrVCDjABNkATm6R8tvWXRqLVOmTG6bSSk1Pc 8+YEdQBhTlKZY1chKmdN6NPK0xe9IuQEmkVEPyi8LlSPi2BY0FPWNhZThhAR1MMQukgu4EMKCrSNTofG RGw6keRmQzIZF5YLElWkiwOL5OEDIqP9ltazFqJHGk ICZXSIffGBGBDRnbOICOKVUpVOTqVrUpLsEcBWAcAIEkISPLQMS1SENoTnNmEXAnTBMsFgDzMPSSNWMp HAJvUeMzMIbqXU7Zr5QfjWIqSH8MCx0AZrYxHZ0fxf8JKUQaWGSmXzsMKjm2GNllPL8GgEBboUI6XMZi BEJTTtGvG5elc4KrYOAzBDPMXBkzOJ3Jf5KcvTVjEK o+Is2FUC5xv2EuEFz2BSZcIP9dzq2URVsWSuOvV0VwaLnwJCMkj3MiAWYnMXSXpT3pJZR3BGP4TWldiV VansEfGXRSZDGenDgwuvowCYMcJBEkHM6iUb0uKIErCKNmTqA5FBMAJR5JJRJqVYVqaKZcSDVbJPWQFE 5RJHaeUQD5WXQxxkVxcAGuKUudDV3BIAUlugZrWNTk MCBSDQo+Ii9KPL4tm9MqUBi0UiLeCS5vdb3LIRjZYsKlK8I4gZZzZ1Z4ILdhIb6LMODhTDVjRSQqRLYC ZHzvWC8RRJ6qddY9YW6TsGLjIITaXKLkfSQwOFc4W94gbYWwDChsKS3OFRC+Dillon+Qi6UHZXjSMNvSBZt MwVbQZBBHsQhY0XdG4OWe7SlX7XsLF99bThnguJgMA glOP0IOP0oKVFhBJURDS4TuDBooJ3xclF7KNPtXZEGLpVsB95emNElGMVdOHRhDUMxHs5YUUFgY3Yths SlzNgaqaCwFSFzIJTINH8WNScircUasCWywYnnXA17qOmnXM3VOc1YQnPnMD1dvk1NyFGyVe8SBPB3Lo 2JSWByCJCrPUZnIJK2PKAkNkLnKUqsQBFkPINlHKC6 DNHjUUAcJB7YUeZqVZYzHvTwQlxbHMEpDQOvni1MKNOdLVI9Mdd5NlMuSLQiDPQxJXhxOMQdHRUfZWZ3 EQCxBAEgDN7YCeUcMFEjELM5ShabAGRyCPNnjt5SKIJbKQKlFLd2LORtNMFpZDJdDYueHQHoFQL4Yqj6 CICbCJBsHY0ONsWtMWPiACc8SLMlDZOeICOkrn6VWS SsTEAxUwd7SGTsYBMrQDEdJVozGDAaFVSjTHUoFJNnXMLaMM0OYxCeLZLeWPP1ZTkeUTMkWRXlux8FGN OpNSAcIDykWeNnXVMgKWFkEEhtFWZzWWPwEDK0UOVaZGMbFY6HRjMaSPHpAnTuHLWySLHnGMIwza1DNX FsEWHhFiirIBXuMLOyQGLnFSfsUQOiLBL4QHX6XWHe HSKyBX3VUbLnJZHmIac0LXFlLDJrKQYtxk9RJBRgFWJrUmw7FHGnJLGeJADzSDfeEECxLYYjRQbiTXEt RXTsIK7AKaAcEHBqFiE5JYZbRFSuGOQsvq8SEJGiWSMpKGQuHSZgMFRtDKWrSYjnYVPfXWM9ROA6RONc XFDqZZ4BEbTeFPPwLfL2RSFhQQItNNNntc1DGXTaBW QiYgZdUMSpOJEiHNTeMFmzMDJsMWO0LLdfVSUmLWSjBX0OQbWwDFQqEin1ApqnGUQmBDJbcl1AVFBeLK HxMdw1KXWqNGFiWXCxOWaxUGWyZKR4HUFpRWKyELGkDJ6DAcOsILTpDgrqDANeHHEvGROfek1ZYVUaHN AzOTMwMCAwMDAwMCBuDQowMDAwMDQwMjYwIDAwMDAw JZ9VYeUlHPCyLKD0DQzgMBVaGRFrgk7DVWXkLVX6QOS3REDkTIVjMUVyNPbpEVYfQSIuQiFhYCHgHUNk XN6EIhYsNOZfNUN5TNIdUAEbTEZjxj2QEUYaTKI9ZMw0GDNuCITaOSSyUAktYGKkILYpVEGaJCQnWQZv BH7GOwUfPLIhSSJeJqQeJPMeHUUvgm9ZKUNhDWZ0Fu A1RaBrDRInSMKnBFayPNMgCOA9UnSaFWPlRULlSD4CDwBnNRGtMHYtWgXoRUHiUENitn0DNMZgOLO6WJ R4IOQwLTOvSGLnJBxtLBByZJD0MVN9CCIvUJAdLM5BHzUvPJBxSJQ3SRCkKIBpNPKrvb6AHLXoSMT1JU JaKLRyJDCdETLiPRhhGXZvAXYbIESmJBYjFTVcIQ6J KzZwUQCgKvDhXEifBAAwQCZyce4YIHObYDI7KCW8PEDuVRUcJWWxAYkeLHVfTKYjXKL6RBWuSIWuOQ4S PsXzXNYwUjN4FXbfQJMsSKIfoh2WPWFsPUJ6MJr5IHSjQPNzIPZiIIlgSQZsCDHgDKX5CCYkCAPsKU6G DnChNIXqGzS6DuOjILGbFYTzrj0SUNXjSNB3SNYuFs KnNBCeUOHdSHubBJPfZNY7IEw6VNLfDWRsIE3ABqDiXJOyHqQySNAuUKPgHZWbnp0FvREgkJsaka8ISF oFVm6HrDzdCAZ6VDijYd8onUY5FtVtPKFIBd2LnnApXNXnGTNEMXixAYViODV8SpFbZpLwOOZhIlZ6T4 WcBDdyDlHtRCGwAWEjSxSlAsN8Gmv0G9HfZnC3PLNp ZADfJFCcNOCsGmK3UTTiYCImGQD+VA1wGEf+Gq9Sf4MwnwT8yzLpFLq6YXO7Fb3KPANYX1DKTo== ID Date Data Source [id number] 02/23/2021 04:37:10 PM EDT [facility] Name Value Range Interpretation Code Description Data Stephanie rce(s) Supporting Document(s) History and Physical [facility] RGYDAz4zEtHGCwLn69/NTEbtIWDzl7FaYEyiXOn0TFxiZUDpN2UsOSV8jO0nNMQ9UKoRDhCmLsWoZPQ4 lbm [file] AgICAgICAgICAgICAgICAgICAgICAgICAgICAgICAgICAgICAgICAgICAgICAgICAgICAgICAgICAgIC AgICAgICAgICAgICAgICAgICAgICAgICAgICAgICAg DQogICAgICAgICAgICAgICAgICAgICAgICAgICAgICAgICAgICAgICAgICAgICAgICAgICAgICAgICAg ICAgICAgICAgICAgICAgICAgICAgICAgICAgICAgICAgICAgICAgICAgDQogICAgICAgICAgICAgICAg ICAgICAgICAgICAgICAgICAgICAgICAgICAgICAgIC AgICAgICAgICAgICAgICAgICAgICAgICAgICAgICAgICAgICAgICAgICAgICAgICAgICAgDQogICAgIC AgICAgICAgICAgICAgICAgICAgICAgICAgICAgICAgICAgICAgICAgICAgICAgICAgICAgICAgICAgIC AgICAgICAgICAgICAgICAgICAgICAgICAgICAgICAg ICAgDQogICAgICAgICAgICAgICAgICAgICAgICAgICAgICAgICAgICAgICAgICAgICAgICAgICAgICAg ICAgICAgICAgICAgICAgICAgICAgICAgICAgICAgICAgICAgICAgICAgICAgDQogICAgICAgICAgICAg ICAgICAgICAgICAgICAgICAgICAgICAgICAgICAgIC AgICAgICAgICAgICAgICAgICAgICAgICAgICAgICAgICAgICAgICAgICAgICAgICAgICAgICAgDQogIC AgICAgICAgICAgICAgICAgICAgICAgICAgICAgICAgICAgICAgICAgICAgICAgICAgICAgICAgICAgIC AgICAgICAgICAgICAgICAgICAgICAgICAgICAgICAg ICAgICAgDQogICAgICAgICAgICAgICAgICAgICAgICAgICAgICAgICAgICAgICAgICAgICAgICAgICAg ICAgICAgICAgICAgICAgICAgICAgICAgICAgICAgICAgICAgICAgICAgICAgICAgDQogICAgICAgICAg ICAgICAgICAgICAgICAgICAgICAgICAgICAgICAgIC AgICAgICAgICAgICAgICAgICAgICAgICAgICAgICAgICAgICAgICAgICAgICAgICAgICAgICAgICAgDQ ogICAgICAgICAgICAgICAgICAgICAgICAgICAgICAgICAgICAgICAgICAgICAgICAgICAgICAgICAgIC AgICAgICAgICAgICAgICAgICAgICAgICAgICAgICAg OQZvWYXzZGWqMAf2L2xcGAPaFMTpDZ4pIYk7Qp0+LYgNRwEmVSP5jnBioZ9AOW4gv9VjSFspEMXrh3Hu HNr6AM0PPPFoVAwqBM2JOPsybb4NCNTmWVUubDMOq2zoJvGyYGB5DJPxNrouER7YPXAeK9apxuQuUTHz PYMAPCntRFLLUJejPQKWMPLkKZNlUtUyKTvdCJ0Wk8 WkcOR8GGj+Io7RQY0qb2OuGQdlEBQsWR2uth0SHGmXYbUeD4VmlmW1YTN1JGLsDx7EMSIjPEFupHZdDU UqDUVRUvDqA4PqjQ53ZYICEw9+BBcassDfFnxJSyS0LYKqw7DcJJu8QE4SDEEcQHj1oRMvBCBXJUR0WL AvRQ6mACUIkZMiAQUtNUFKHSX2KTspZUArAhHxHIOe YImfLuWNMJeZPzKjH2Wbx1ByHxR8KCBiYiUkUTbmOMBqQvY3JW50gLhrTO1FEFXtLPTfHE60IPD1YFEl Oj2NJu2EFfHwQO4eew2HRqNzKURrVxwEIfq9SIwzWJ3JuUPeI1KnvDHcq2xTEjZxK6JJFUYuXRYpIg9K AUHeHaNyBYHsWNwzEL1hGGRfRYOKsLmwmbR1NW0ICK 9gweGvGE3LLfFhGa6nRe9WOzGvG0FcX8WwAPDtZHBMZNplHU7CTLamXQ3gDB6Yq4HUpOOapU8sjs3VNL RfRWIpLytwpi7LSvwfX3L9wCewIIBhZxWdAMOWZGjoCB7CDCBhBYW3ZVQgJgKyQIPXIaTbN96mNE2OQ3 Qdj30bXmN8CICmClOoFLpdDJ38tSoyekQjeWSweWao JE4HWe6+SJremtAgYssXJgfjQLANZtImUmbHTjPlMZWcOOPoMWYqLhA9SvBcPg8LVBSxBJNuFQKvIrKi KFUzEJOySGcoMQXtFETkFMJqBSFvUVYcOY2QBvXoAEUyCcD7NoqsOYDkRJYzdt7VSYLhALCiIKJ7TzIo XXExCGFfBTtnBAIiSTVyXYhbSVRrXZZdCI0TUvYwZJ DuWDDdHQfxUPJrDXYrsd2WTCLoBXYnRYt3DPIxHZYlZCLnNWxgFZKyLFS0DLmxIEFxXUHfQU2IPcEmSR LuSCu3XtMuEBNvDKBjhb4PDKNgNRKlXVv7GDIsAAFaTMKqTZxtKDGbRDTvYUX1EDJlGLIrVZ5FKqBgGN MtCYInNsJeMOCtUJDnsq0OPAXiLFFrNtJ4QEBhIADd VBQeXDufKDRpUCVjXutjYTRdIMSuOC5IVxYdTFUjUTK7ZqTeOXEnMAZvxq5LSYVqRMEwHgHnBaTpWSJc SQFnKVzxOPJmWQMaYhU4YEFnTBKpWL7WWuYaCNKxGQZ0VDOjKRXuCGHuxq5XAGYhUXTjURr9MtGhBKOb ZBKuZYzhTHJaSQR3NEvaZWIsYDEhOY5ZAfRrWTJjZY EyJOEwWUFkHCJcxy4NZOQvURHbFwFrQFUvFWHcJZLbKVeaXOEkXWI6RZA4LWTzJGGzOW0BElGaDXWyTr mpOoSsWWSeXCJnzb6PRDYjVDZaDtMuYDOlLTYtMGEjEHqpOUXfFYU4MPXmDHAaMDOiSA8XZiMbZRJvGj lzKCCeFPWhKDKrtb8DVTBeNEKlZAC4QyIaLYIhQIBh QPuxRLOdFMW2FaNyAIBaCPHlCG3IUwQiDIStHwd5HBSwNWBbBGHnfy8EOSPjCYOpCYh4ZdArSQZfMRGo OSccMCPtSZEuNOj1XNMfJQIoSE7SDpTpUMAqAoF2LnptDYYzNZIpaz2CQIMmJLAmKIw4EFBuEJXfXHQo WWkrRGYaVJKzRYF5RHYtQIDuCR0LDtVyFJPfOsCpUF IhCKWwQJVfmf2JcPAptFordw7TQHiBSx9IuUekIOA1WNsnIn2qcWFxAsDcZSXCUj6PxhCcMSAoLLWIZV xaEZDbBIWzCkB3KxY5WRV0RXGnXjD8JDI8LbVjQSFoP8D3UXu4XhN4CmVoCQhcVHKpDpGuBnA5Rpr0Db efCJQ8JwO7AjDoUnI+NR0hXZp+Ue1Bb0AxoaP0utEzKVaeGhEwHu2LZNEIT9AALe== ID Date Data Source [id number] 02/22/2021 04:47:09 PM EDT [facility] Name Value Range Interpretation Code Description Data [facility] Document(s) History and Physical [facility] BIWQOo8kUdGZBdQg68/GKTzfEFFjy7FvIRcwUFv8IDclGRWsB9UaHPJ8lE6oSYJ5CJtASnRbHxScVSK9 lbm [file] ICAgICAgICAgICAgICAgICAgICAgICAgICAgICAgICAgICAgICAgICAgICAgICAgICAgICAgICAgICAg XIQzQBEnCDKtFSZnLL6XIFKqLMMyXGLkMZLiPJRpZBGoFJVbGUGiFOXsNWViIYPxHVGtZSYeGAIlQLNz ICAgICAgICAgICAgICAgICAgICAgICAgICAgICAgIC YoGRIdJDDeNDHoVGImFAYqRHJqTXMqVX4MBHOgZWKsXINcLEWeCHCbIQJcCSUeSRIyIHEaIIIlLHMmQE AgICAgICAgICAgICAgICAgICAgICAgICAgICAgICAgICAgICAgICAgICAgICAgICAgICAgICAgICAgIC HbIJWaFA8JLQHnJFYxWQOjZBExSQBuMVBzVKZsUVKv ICAgICAgICAgICAgICAgICAgICAgICAgICAgICAgICAgICAgICAgICAgICAgICAgICAgICAgICAgICAg ZBCyEPWhQKCuYOOrAAMxRD5XOADbVMQrCPMrOYMqHEKhAZEkTBSiMASvIETvUFIoKCYkFTWpHBYtZNFa ICAgICAgICAgICAgICAgICAgICAgICAgICAgICAgIC AuCXJxHZFzFVYhVPIkUVSeAAPlPVAeYSBvBG2WZLXhLCPbXXXiIDYwYHZiKRDtSIIxBPFcRBXzOMPoBY AgICAgICAgICAgICAgICAgICAgICAgICAgICAgICAgICAgICAgICAgICAgICAgICAgICAgICAgICAgIC KpRWIfHXXwNF0NRPCmTBZjLXMkSQMdPHEsOUIlLNSk ICAgICAgICAgICAgICAgICAgICAgICAgICAgICAgICAgICAgICAgICAgICAgICAgICAgICAgICAgICAg CURfQYNqLYMtDCFsYPArXKTiEY2GDKLiIWYqJNTmXWWrRYKkQMGkCUKrFPMbTPFsDWGoBSOuEVXuSKPl ICAgICAgICAgICAgICAgICAgICAgICAgICAgICAgIC HhOGFdPDNxDCVfZYYuQPNmUDVmRWOxCYCnCFRvPP1NYFNtIQHlQADzJLNmDDTgRCOvFUSrNFGoOIYhAO AgICAgICAgICAgICAgICAgICAgICAgICAgICAgICAgICAgICAgICAgICAgICAgICAgICAgICAgICAgIC LdLNAmZHOhYHWrWZ7SUCZbFGCeZIXcGYEaGLInISSe ICAgICAgICAgICAgICAgICAgICAgICAgICAgICAgICAgICAgICAgICAgICAgICAgICAgICAgICAgICAg ZUHbATYeHQEqBGOeJJNmYPOkVLUsPA7NZF87rEYiv6Z9UWAeUA7zdyo/Us2YRIirkyJghFPrAH1CArJr BM3ofm8LXdUuFY9akb3GACxGVuRhM5P7bVBlYYJpZU XGTjYuR99hDNddUp81RXweTTPiQgCuELj2El8GRqHaB7vfMACjTkB0MOMnVtC2ZVJtZnK9ZEQrQyPdIR IoWKHwPOGlPFOZMTQ6POHoSaFgIaTiQLQwBExlDMNBPOBfMUIwYrHxGAxyBM2Tp3PwlSX0MMx+Pg0KZW 5yv0DmRHp6WsMpDA7lwu4AOFzWEmUwF6JvkrT6WACk CFTjMz6FWNAvPZJvwPH9IsWxJSAPRsWqA3FygZ49ZZAVAf0+UZvtnsPmOcfSVwQyFIKgq3ErPQv6AK5Z PQNjZDa7lXGkZAHEJKK2YYRywnyoKMCYv4J0AHHWWQGlrME5NjP7WkDyHqDqAJA8NNUpSC8lFCnvBN3S CDI0SFjiYUAlVSAuJ5fKMoQnDJJeVeMolFnjCI2CJt TjZ7ScdxQcxRM7FvYiXEQCNl4+QFrqtvWjMjkZTcS2JLRoy6SlBNs8ON0YKBIlMVqhNB0AUHPrjL8wJZ npCM6GNyQ9YROzWJXBIqHzG48jgTImPGk2X9OpOwSpRQBwHvogUXCqXJsaZvFgNBEuWfGoHKwyUP3+ID 4+DKbmMO0DFZqwerYcNFBrQs4IFVWkTXYsKS1tNGUj AGUyK1B6nKdzCUGOWrWeI3lmthdiVX1jKRBoQ985mJoqsqJzDSFgBOIyVu6XDCXxZIW0SOIudVNnFTKw YOZZBMtwKV2UbTXkXZK5iL2yMPasKDAqCSHwQ6oXOsMaiWxqGO18bQewmpDcnJVsIWr+Ux0RSF4zw7Xb QQe6onEeZGalWEA4ATgdBRWqBOExSDDiUQC8ZDL7PY XYPrVyDSYzHNJaKUuaYEVlGTTxyu2VIYHnAAI8RnjsOtZeMWKsRMWvPMeePEYsCNX0NuN1CMAeWNAaHV 2RUpFdUBBsVAJeOGveFMXsPRPmjz1BUMRvHPKfUwK0VdMmEFFfVAHqDVbbLWImPBCqEpP9ZDRuCXIuFA 5LCwMeYJUkRPA0SaLaJPVySERfck1NWLMtVLBzXoP8 FpFmLUMtTOMyAWgmFRJyOTYwISv3GGCeDUChJT6GAhVkNWHqIWIvNHSmNVXwRSXeji5OUYPqSPPdSjhu TIJcVPLrXGGqIJegCWAoRXV0BVD0OPCjTFKzAU8SPnStPOYrVHw4FrmiLKJvSKBbur5TBXFbSAIhOimm NKGtBVUmDLVgLRdpHQBuUEUgNcY7NFHkWUTzHQ3BPh PcIBJpToI3JNFzQEFiPLNfhu2IKCMhFIDcNMZlLQFoBMXsZTYsLExmLGTgBSU7QeNkXPBoHVIvKE8MAo OcEVIiLyklUsffXEDgTPEirq7URWEzRTAwLXSlOrIqEGMsWBUyNDyjUPOiTDRaRBb9FCRqNDZaFB6PYb JcCOIvLrCbSLXeZEDnKJJczr1ZJBFgSPXgXvF0MDDj ZTXjPNOtVNtjGBEaGYXsOYMxTKUrQXSqGF2CViTjXMImWbG7JmMkBALlTEHpqa1TDIVhAMClWlR9XiSr HIIaHVQmTAvwPWLkNZAnBLi5ZKTmFDFiKC4ULvRuTZYvVzJhJSKiSYQgLMUcby5QXLVkDKVlNAD1GaMr CDJdKSKvBHmjCOChHUV8YpKcHLWxLWNgBF0FYqDlHS UmEeE9DtSkVBHkPATrqn8AFXTlJXWrIaS0HyScPWDlYTIfVHeqZTKmYHV8YIk2SQMlKMWnYQ2XPzOsWT KjCzQ6MapoXKRuYHHjem2BQUPnODK9ZEB1NxFsTXVjIHGwDEcyCBLzVXX6NGlrAUDmSPWfTT5EEsWoJE JlCTf0DLucXHQmLAImgg5UEMQrOAH4WBswVQBqEBEz TTScCEdyTKWcNHJ7PJp2OMYjTNAcMS9RSgNvVDUtSOR0DhMeQFVcNUJnqe0TBEZcRGM5MCN2AmTnUZNq DVMrFOcoIKHyBFF0ESQ3BJUeTPSpJJ8DOcJkGTTmUQL7GCWtBCQoXMVjtz6NILOdGPL2PJr6RfYxZDRw MOAaBJdhYMQsJVA9LJr8DXEdKRMiJM0VNvGmKFNdMW NfXZosNSTuWEGsuw1JAZPpGIQ0LRC3HTJdFJJqGWKbFBzqMKCcTGM1JTB0FZTbXAEwRM6ADcImLGOeNP E6IXRaHTFoFAGwgi4NCAIiMGW4Bhe2BPKzOZKiZPAeOWbrHGTuMVW8TsY3CSHtDRLmJJ0CIkInZYFoHI j0GKeyNXBcPQLvxn3LUDSiLYS1XUzfGNCvIDZeZZEb WDgpIPDeQIG5UKKgWONaYKGzMX6YRaRgVBzhSGYXIse3OKilH7c5NLO5QY6JL4Thf2FaNQDnQQXWTBuy HK4dtyZsJNQzWm5UB8pACiszEtsfUmIyWWS8XFiqPxIfWGXeBNS3AbidAEorWWUpRy2aLUA9B4CbMLTp XKX1W8K8GVUcRJQvGRKsW3EuK9L8LtEdApJyWI9MNn1ESeD1VPY0hYFaQz4XDHnsCOmCEvKpHT1TTIa= ID Date Data Source [id number] 02/21/2021 01:20:00 PM EDT [facility] Name Value Range Interpretation Code Description Data Stephanie rce(s) Supporting Document(s) LCOVID-19, CORDELL NEGATIVE [facility] This lab was ordered by [facility] and reported by [facility]. ID Date Data Source [id number] 02/21/2021 01:46:00 PM EDT [facility] Name Value Range Interpretation Code Description Data Stephanie rce(s) Supporting Document(s) COVID-19, CORDELL NEGATIVE NEGATIVE N [facility] Methodology: Isothermal Nucleic Acid Amp lification [...] Emergency Use Authorization. ID Date Data Source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 Onset: The symptoms/episode began/occurred just priorto arrival. Past psychiatric history: Prior diagnosis: bipolardisorder. Associated signs and symptoms: The patient has no apparentassociated signs or symptoms. Severity of symptoms: At their worstthe symptoms were moderate.LEGAL LIBRARIAN:02:34 LMP N/A - Irregular menses ip2Kndbfxswgz:- Allergies: Haldol; Risperdal;- Home Meds:1. ibuprofen 400 [...] Psych: Positive for depression, homicidal ideation, suicidal jz9qxffqeco, Negative for drug dependence, alcohol dependence, auditoryhallucinations, [...] Temp 97.8; Pulse Ox 98% ; Weight iy6110.33 kg; Height 5 ft. 6 in. (167.64 cm);09:45 BP 131 / 84; Pulse 72; Resp 20; Temp 97.9; Pulse Ox 97% ; Pain 0/10; ef102:34 Body Mass Index 37.12 (104.33 kg, 167.64 cm) jw5MDM:02/1004:54 Data reviewed: vital signs, nurses notes, lab test result(s). na1083:30 Patient medically screened. na:37 Order name: Acetaminophen Level; Complete Time: 04:50 :37 Order name: CBC with diff; Complete Time: 04:50 :37 Order name: CMP; Complete Time: 04:50 :37 Order name: ETOH; Complete Time: 04:50 :37 Order name: Glucose jw:37 Order name: Salicylate Level; Complete Time: 04:50 :37 Order name: Triage - Drug Screen; Complete Time: 09:20 jw5089:20 Interpretation: Within normal limits. se02/1102:37 Order name: UA; Complete Time: 09:21 9:21 Interpretation: Normal except: USG 1.030. :37 Order name: Urine HCG Qualitative; Complete Time: 09:21 5089:21 Interpretation: Within normal limits. :37 Order name: Diet - Mental Health Tray (call dietary); Complete Time: jw507:2:37 Order name: Belongings List; Complete Time: :45 :37 Order name: Document Weight and Height for BMI; Complete Time: 07:2:37 Order name: Mental Health Evaluation; Complete Time: 09:45 :37 Order name: Mental Health Level 3; Complete Time: 07::37 Order name: VS q shift; Complete Time: 07:27 jw508/1104:50 Order name: Medically Cleared for Eval by-Psychosocial, Cd Mixer Helper na1(.PSA); Complete Time: 05:05Dispensed Medications:No medications were administeredSignatures:Dispatcher [employer] Kylie Fishman MD MD seAl-Hussein, Nabeel, MD MD na1White, Jason, RN RN fn1TafdkccvAmi Medrano RN RN am2Cmbmlhageqq: (The following items were deleted from the chart)02:33 02:31 Home Meds: loratadine 10 mg oral TbDi once daily; jw5 jw5 Name Value Range Interpretation Code Description Data Stephanie rce(s) Supporting Document(s) ID Date Data Source [id number] 02/19/2021 10:15:00 AM EDT [facility] Nurse[facility]ClCentral [facility] terName: Yareli DuvallAge: 20 yrsSex: FemaleDOB: 2000MRN: [id number] Date: 02/19/2021Time: 02:28Account#: [id number] 2Private MD: NONE, - Per PatientDiagnosis: Bipolar disorder, unspecifiedPresentation:02/1102:29 Presenting complaint: Patient brought in by [facility] officer Lilly strickland5for mental health evaluation Patient reports feeling suicidal andhomicidal patient reports plan for suicide is to self harm or todrown self and homicidal towards mother. International Travel FeverNo. Coronavirus Screening: Have you been diagnosed with COVID-19 inthe past 30 days? no Are you currently on quarantine by PublicHealth? no Flu-like symptoms reported in the last 14 days: no. Haveyou had close contact with confirmed or suspected COVID-19 case? noDo you live in a setting where a large of amount of people live, suchas intermediate, family care, nursing home, etc? no. Have you traveled to [facility] with widespread or ongoing COVID-19 community spread [facility]? no Have you traveled internationally or hadcontact with someone that has traveled and has been ill in the past 3weeks? no Have you received the COVID vaccine? Yes. CommunicableDisease Screen: Negative for fever>/= 100 degrees Fahrenheit.Communicable disease screen is negative. (-) rash or unusual skinlesion. Communication Speaks Wallisian? Yes, is preferred language.02:29 Acuity: Triage 2 jw502:29 Method Of Arrival: Police jw502:31 Acuity Assignment: Triage 2 nt7Fyhgxc Assessment:02:33 General: Appears in no apparent distress, Behavior is cooperative. aa6Ynolrw Screening: (1)Signs/symptoms infection Sepsis is notsuspected. Pain: [...] aware ofpositive screen, suicide precautions implemented. ESS-6 ordered.LEGAL LIBRARIAN:02:34 LMP N/A - Irregular menses sb4Zqxnlbmlzp:- Allergies: Haldol; Risperdal;- Home Meds:1. ibuprofen 400 [...] threats or abuse. Denies injuries from another. cg8Nfkrbovimwl screening: No deficits noted. Offer of HIV testing:patient was previously offered screening. Fall Risk None identified.Assessment:07:47 Derm: abrasion noted to left forearm; bacitracin applied. General: rl1Fsxtdzm in no apparent distress, obese, Behavior is cooperative.Neuro: Level of Consciousness is awake, alert, obeys commands,Oriented to person, place, time. Respiratory: Airway is patentRespiratory effort is even, unlabored.Psychosocial:05:05 SAFE Act Report Not Completed. Intervention: Observation Level 3. mnMental health consult is initiated at 05:00. 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 Pt has an extensive inpatientmental health history, the last time being admitted was 01/02/21 afteran overdose. [facility] Pt [...] Support: poor The patient currentlylives in a [facility] residence. The patient is single. Detox / RehabAdmissions: None. Current Outpt Alcohol or Substance Abuse Services:None. Family History, Mental illness. P solange presents to EmergencyDepartment with the following symptoms [...] Ideation: Vague.towards mother, no plan.09:09 Consultation: Psych informed of patient's status at 09:09, ED SBhg86llewyrtc of patients status at 09:09. Disposition: Medically clearedfor disposition by Dr Levy. Psychiatric Consult is performed byphone with Dr Dylan Ribeiro NP The patient has a safe destinationwhich is Pt will be discharged home to [facility] per Dylan Ribeiro NP. Ptcan contract for safety and denies SI/HI. Pt will follow up with [facility].Pt provided contact information for [facility] and [employer]. Pt will come tothe ED if problems continue or worsen. DSM-V DX [place] I diagnosis:Bipolar D/O, mixed [place] II diagnosis: Deferred [place] III diagnosis:None. [place] IV diagnosis: poor impulse control. Abuse/DV Screen: Thepatient / caregiver reports he/she is not in a situation that causesfear, pain or injury. The patient is not a family service center director or militarydependent. [place] Suicide Severity Rating Scale: Suicidal IdeationRating 0; Intensity of Ideations Rating 0; Suicidal Behavior Rating 0.Psych:02:35 Subjective: Patient's mood is sad, Delusions are denied, tp3Rzjdueattvmufe are denied Having thoughts of suicide. Plan [...] Temp 97.8; Pulse Ox 98% ; Weight ep8460.33 kg; Height 5 ft. 6 in. (167.64 [...] staff). Urine collected. ef109:19 Attending Physician role madison nded off by Ramón Levy MD se09:19 Kylie العلي MD is Attending Physician. se09:45 No Physician assisted procedures completed. bc3Tlltuxtxqdzl Medications:No medications were administeredOutcome:09:20 Discharge ordered by . se09:45 Disposition: Discharged to home ef109:45 Condition: stable, Provider notified of abnormal vital signs.09:45 Discharge instructions given to patient, Instructed on dischargeinstructions, follow up and referral plans. Demonstratedunderstanding of instructions.09:45 Discharge Assessment: Patient verbalized understanding of dispositioninstructions. Patient has no functional deficits.10:15 Patient left the ED. 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 Pt has anextensive inpatient mental health history. Pt [facility] where she sees Sadaf. Pt doesnot know when her next appointment is. Pt . nh Name Value Range Interpretation Code Description Data Stephanie rce(s) Supporting Document(s) ID Date Data Source [id number] 02/17/2021 04:09:00 AM EDT [facility] Name Value Range Interpretation Code Description Data Stephanie rce(s) Supporting Document(s) SALICYLATE < 1.7 mg/dL 0.0-20.0 [facility] ID Date Data Source [id number] 02/17/2021 04:09:00 AM EDT [facility] Name Value Range Interpretation Code Description Data Stephanie rce(s) Supporting Document(s) ACETAMINOPHEN < 2.0 ug/mL 0-30 [facility] Date Data Source [id number] 02/17/2021 04:09:00 AM EDT [facility] Name Value Range Interpretation Code Description Data Stephanie rce(s) Supporting Document(s) ETOH NONE DETECTED [facility] NONE DETECTED ID Date Data Source [id number] 02/17/2021 04:09:00 AM EDT [facility] Name Value Range Interpretation Code Description Data Stephanie rce(s) Supporting Document(s) GLU 102 mg/dL 70-110 [facility] Patients taking Sulfasalazine may have f alsely depressedGlucose levels. Patients taking Sulfapyridine may havefalsely elevated Glucose levels. Patients should be drawnfor Glucose before the initial administration of eitherdrug. BUN 20 mg/dL 7-23 [facility] CRE 0.620 mg/dL 0.500-1.300 [facility] GFR > 60 mL/min [facility] CHLORIDE 111 mmol/L 99-110 [facility] NA 142 mmol/L 136-147 [facility] POTASSIUM 3.5 mmol/L 3.5-5.1 [facility] TCO2 22 mmol/L 20-33 [facility] ANION GAP 12.5 10.0-20.0 [facility] CA 9.0 mg/dL 8.3-10.7 [facility] ALKALINE PHOS 112 U/L 45-117 [facility] TP 7.3 g/dL 6.0-7.8 [facility] ALB 3.8 g/dL 3.5-5.0 [facility] ESRD Dialysis patient Albumin reference range: 2.9-4.4 g/dL GL 3.5 g/dL 2.3-3.5 [facility] A/G 1.1 1.0-2.5 [facility] T. BILIRUBIN 0.3 mg/dL 0.1-1.1 [facility] The Dimension [place] Total Bilirubin is n ot recommended forpatients undergoing treatment with eltrombopag (Promacta)due to the potential for falsely elevated results. ALTI 43 U/L 6-54 [facility] Patients taking Sulfasalazine and/or Sul fapyridine may havefalsely depressed ALT levels. Patients should be drawn forALT before the initial administration of either drug. AST 19 U/L 6-38 [facility] Patients taking Sulfasalazine and/or Sul fapyridine may havefalsely depressed AST levels. Patients should be drawn forAST before the initial administration of either drug. ID Date Data Source [id number] 02/17/2021 03:47:00 AM EDT [facility] [place] Name Value Range Interpretation Code Description Data Stephanie rce(s) Supporting Document(s) WBC 9.27 x10E3/uL 4.0-10.5 [facility] RBC 4.10 x10E6/uL 4.20-5.40 [facility] Hemoglobin 12.1 g/dL 12.0-16.0 [facility] Hematocrit 36.7 % 37.0-47.0 [facility] MCV 89.5 fL 81.0-99.0 [facility] MCH 29.5 pg 27.0-31.0 [facility] MCHC 33.0 g/dL 32.7-35.6 [facility] RDW 12.4 % 11.5-14.0 [facility] Platelet count 224 x10E3/uL 150-450 [facility] ital MPV 9.3 fl 6.9-9.5 [facility] Neutrophils 61.0 % 34-64 [facility] Lymphocytes 30.1 % 25-45 [facility] Monocytes 6.7 % 1.7-10.6 [facility] Eosinophils 1.6 % 0.4-7.0 [facility] Basophils 0.2 % 0.1-2.0 [facility] Imm. Gran. 0.4 % 0.1-2.0 [facility] Abs. Neutro. 5.65 x10E3/uL 1.2-7.6 [facility] [place] Abs. Lymph. 2.79 x10E3/uL 1.0-3.5 [facility] al Abs. Kerr. 0.62 x10E3/uL 0.1-1.0 [facility] l Abs. Eosin. 0.15 x10E3/uL 0.1-0.7 [facility] al Abs. Baso. 0.02 x10E3/uL 0.0-0.1 [facility] l Abs. Imm. Gran. 0.04 x10E3/uL 0.0-0.1 [facility] spital ANRBC% 0 % 0 [facility] ID Date Data Source [id number] 02/17/2021 04:05:00 AM EDT [facility] Name Value Range Interpretation Code Description Data Stephanie rce(s) Supporting Document(s) PCP VISTA NEG NEGATIVE [facility] MINIMUM LEVEL OF DETECTION IS 25 ng/ml BENZODIAZEPINES NEG NEGATIVE [facility] al MINIMUM LEVEL OF DETECTION IS 200 ng/ml COCAINE VISTA NEG NEGATIVE [facility] MINIMUM LEVEL OF DETECTION IS 300 ng/ml AMPHETAMINES NEG NEGATIVE [facility] al MINIMUM LEVEL OF DETECTION IS 1000 ng/ml BARBITURATES NEG NEGATIVE [facility] al CUTOFF CONCENTRATION IS 200 ng/ml CANNABINOIDS NEG NEGATIVE [facility] al CUTOFF CONCENTRATION IS 50 ng/ml METHADONE VISTA NEG NEGATIVE [facility] al MINIMUM LEVEL OF DETECTION IS 300 ng/ml OPIATE VISTA NEG NEGATIVE [facility] MINIMUM DETECTION LEVEL IS 300 ng/ml ID Date Data Source [id number] 02/17/2021 03:48:00 AM EDT [facility] Name Value Range Interpretation Code Description Data Stephanie rce(s) Supporting Document(s) URINE COLOR Yellow [facility] UAPR Cloudy [facility] UGLU Negative NEGATIVE [facility] URINE BILIRUBIN [facility] UKET Negative NEGATIVE [facility] USG 1.028 1.010-1.025 [facility] UBLO Negative NEGATIVE [facility] UpH 5.0 5.0-8.0 [facility] UPRO Negative Negative [facility] UUB 1.0 mg/dL 0.2-1.0 [facility] UNIT Negative Negative [facility] ULEU Negative Negative [facility] ID Date Data Source [id number] 02/17/2021 01:54:00 PM EDT [facility] Physician DocumentationClaxlexy-Naveen Hinkle edical CenterName: Yareli DuvallAge: 20 yrsSex: FemaleDOB: 2000MRN: [id number] Date: 02/17/2021Time: 03:10Account#: [id number] 2Private MD:ED Physician Juan Bowmanposition Summary:02/17/21 12:48Discharge OrderedLocation: Home Self Care afProblem: an ongoing problem afSymptoms: are unchanged afCondition: Stable afDiagnosis- Adjustment disorder, unspecified afFollowup: af- With: Private Physician- When: 1 week- Reason: Recheck today's complaintsDischarge Instructions:- ADJUSTMENT DISORDER af- Discharge Summary Sheet kfForms:- Medication Reconciliation af- Medication Reconciliation Form - 2nd Copy afHPI:02/903:44 This 20 yrs old White Female presents to ER via Private Vehicle with en2axlpvcicwq of Psych Problem.03:44 Patient presents for mental health evaluation stating suicidal uf2yozfcozv. Patient voluntarily called the police and asked [...] 50 mg Oral tab 1 tab prn tkkhhine77. Latuda 80 mg oral tab 1 tab once daily- PMHx: ADHD; ANXIETY; BIPOLAR DISORDER; Depressive disorder; PsychHx; ptsd;- PSHx: None;- Immunization history: Flu vaccine is up to date.- Social history: Smoking status: Patient uses tobacco products,current every day smoker. ETOH status Denies use of ETOH.- Advance Directives:: None.ROS:03:44 Constitutional: Negative for chills, fever. Eyes: Negative for uw1cgjhnnxzqpw, vision loss. ENT: Negative for difficulty swallowing,difficulty [...] patient appears in no acute distress, alert, wc8dhqym, comfortable, non- diaphoretic, non-toxic, well developed, obese.03:47 [...] Temp 97.6; Pulse Ox 98% on R/A; qf7Tmhvie 104.33 kg (R); Height 5 ft. 6 in. (167.64 cm) (R); Pain 0/10;10:26 BP 119 / 73; Pulse 74; Resp 17; Temp 98.0(O); Pulse Ox 97% on R/A; jlPain 0/10;13:53 BP 130 / 77; Pulse 76; Resp 16; Temp 97.8; Pulse Ox 96% on R/A; fbg03:16 Body Mass Index 37.12 (104.33 kg, 167.64 cm) mi2Itkbzlj Coma Score:03:47 Eye Response: spontaneous(4). Verbal Response: oriented(5). Motor fg9Xqnzyqur: obeys commands(6). Total: 15.MDM:03:12 Patient medically screened. dk203:50 Data reviewed: nurses notes. ED course: Patient seen and medically hv8vucvkhi, is very talkative speaking to multiple members of staffmaking some inappropriate commentary but generally pleasant, pendingmental health evaluation.04:39 ED course: Laboratory studies reviewed, patient medically cleared il9njwdwkj mental health evaluation resting comfortably.06:50 Transition of care: After a detail discussion of the patient's case, yy6uxug is transferred to Anshul Strauss MD.02/903:35 Order [...] Order name: Belongings List; Complete Time: 07:31 cm408/0903:35 Order name: Document Weight and Height for BMI; Complete Time: 07:31 cm408/0903:35 Order name: Mental Health Evaluation cm408/0903:35 Order name: Mental Health Level 3; Complete Time: 07:31 cm408/0903:35 Order name: VS q shift; Complete Time: 07:32 cm408/0904:39 Order name: Medically Cleared for Eval by-Psychosocial, Cd Mixer Helper dk2(.PSA); Complete Time: 11:55Dispensed Medications:07:32 Drug: Acetaminophen [...] RN RN jlKennedy, Derek, MD MD dk2Marcellus, Courtney RN RN zn0Detlxtfnvfd: (The following items were deleted from the chart)10:15 03:16 Home Meds: Latuda 60 mg oral tab 1 tab Twice Daily; julio césar jl10:15 10:12 Home Meds: Zoloft 150MG Oral tab once daily; rere jl Name Value Range Interpretation Code Description Data Stephanie rce(s) Supporting Document(s) ID Date Data Source [id number] 02/17/2021 01:54:00 PM EDT [facility] Tootie terName: Yareli DuvallAge: 20 yrsSex: FemaleDOB: 2000MRN: [id number] Date: 02/17/2021Time: 03:10Account#: [id number] 2Polga MD:Diagnosis: Adjustment disorder, unspecifiedPresentation:02/903:14 Presenting complaint: Patient states: she is having suicidal thoughts cm4and anxiety. Presenting complaint: patient brought in by [facility] Karen. Coronavirus Screening: Have you been diagnosed withCOVID-19 in the past 30 days? no [facility] no Flu-like symptoms reported in the last 14 days: no.Have you had close contact with confirmed or suspected COVID-19 case?no Do you live in a setting where a large of amount of people live,such as intermediate, family care, nursing home, etc? no. Have you traveledto a location with widespread or ongoing COVID-19 community spread [facility]? no Have you traveled internationally or hadcontact with someone that has traveled and has been ill in the past 3weeks? no Have you received the COVID vaccine? Yes. Ebola ScreeningInternational Travel No. Communicable Disease Screen: Negative forfever>/= 100 degrees Fahrenheit. Communicable disease screen isnegative. (-) rash or unusual skin lesion (-) travel/contact withtraveler (-) respiratory symptoms. Communication Speaks Wallisian? Yes,is preferred language.03:14 Acuity: Triage 2 cm403:14 Method Of Arrival: Private Vehicle cm403:15 Acuity Assignment: Triage 2 ck9Culsvg Assessment:03:15 General: Appears in no apparent distress, Behavior is cooperative. zq2Hxhgak Screening: (1)Signs/symptoms infection No. Pain: Denies pain.PSS-3 [...] 50 mg Oral tab 1 tab prn ijvszrja22. Latuda 80 mg oral tab 1 tab once daily- PMHx: ADHD; ANXIETY; BIPOLAR DISORDER; Depressive disorder; PsychHx; ptsd;- PSHx: None;- Immunization history: Flu vaccine is up to date.- Social history: Smoking status: Patient uses tobacco products,current every day smoker. ETOH status Denies use of ETOH.- Advance Directives:: None.Screenin:17 Abuse screen: Denies threats or abuse. Denies injuries from another. at2Axqcwprgnvn screening: No deficits noted. Offer of HIV testing:patient was previously offered screening. Fall Risk None identified.Assessment:03:17 Reassessment: No changes from previously documented assessment. cm405:30 Reassessment: Patient appears in no apparent distress at this time. kk306:18 Reassessment: Patient appears in no apparent distress at this time. kk307:34 Reassessment: Appears manic with conversation and behavior, Ativan zsgiven, sitter at bedside.Psychosocial:12:17 SAFE Act Report Not Completed. Intervention: Observation Level 3. [facility] is initiated at 11:45. Referral [...] PT also expresses having anappointment with the [facility] on the as well. Pt describes [...] several psychiatric admissions, ptwas [facility] in February [facility] CurrentOutpatient Mental Health Services: [facility]. Living Environment: Family /Home Support: Good The patient currently lives in a [facility] residence.The patient is single.12:26 Patient presents [...] Psychiatric Consultis performed by phone with Dr Macias The patient has a safe destinationwhich is PT will be discharged home to [facility]. Pt can [facility]. Pt denies SI/HI. Pt will continue treatment through [facility] andupcoming appointments will be verified and expedited as needed. Pthas been provided with PSA and Re[employer] numbers and has beeninstructed to return to the nearest ED should problems continue orworsen.12:34 DSM-V DX [place] I diagnosis: Adjustment D/O Unspecified [place] II kfdiagnosis: Deferred [place] III diagnosis: None. [place] IV diagnosis: poorcoping. Mayes Suicide Severity Rating Scale: Suicidal IdeationRating 3; Intensity of Ideations Rating 13; Suicidal Behavior Rating1.Psych:03:18 Subjective: Delusions are denied, Hallucinations are denied Having uv4psecqwps of suicide. Plan for suicide is to drown herself. Objective:Patient is cooperative, Speech is normal, Affect is appropriate.13:54 Interventions: Observation Level Level 2. fbgVital Signs:03:16 BP 117 / 96; Pulse 76; Resp 18; Temp 97.6; Pulse Ox 98% on R/A; oh7Vssbta 104.33 kg (R); Height 5 ft. 6 in. (167.64 cm) (R); Pain 0/10;10:26 BP 119 / 73; Pulse 74; Resp 17; Temp 98.0(O); Pulse Ox 97% on R/A; jlPain 0/10;13:53 BP 130 / 77; Pulse 76; Resp 16; Temp 97.8; Pulse Ox 96% on R/A; fbg03:16 Body Mass Index 37.12 (104.33 kg, 167.64 cm) vj6Gxgoojz Coma Score:03:47 Eye Response: spontaneous(4). Verbal Response: oriented(5). Motor rw9Qrwollja: obeys commands(6). Total: 15.ED Course:03:11 Patient arrived in ED. cm403:12 Anoop Bowman MD is Attending Physician. dk203:15 Triage completed. cm403:18 Patient has correct armband on for positive identification. Placed in gm6iykh. Bed in low position. Verbal reassurance given. [...] Disposition: Discharged to home ambulatory. fbg13:53 Condition: :53 Discharge instructions given to patient, Instructed on dischargeinstructions, follow up and referral plans. medication usage,Demonstrated understanding of instructions, medications.13:53 Discharge Assessment: Patient awake, alert and oriented x 3. Nocognitive and/or functional deficits noted. Patient verbalizedunderstanding of disposition instructions. Patient verbalizedunderstanding of disposition instructions. Patient has no functionaldeficits.13:54 Patient left the ED. fbgSignatures:Vincenzo Luis, RN Anshul Segovia MD MD afShantie, Zachary, RN Zakia Lo PSA PSA Bertha Alston RN RN jlKennedy, Derek, MD MD dk2Kelly, Krista RN JOSE LUIS pm8GdgxbwccdWendy Severino RN RN rf9IupaoaMarilu walters ESA QUIN mz3Xtjkprtqblb: (The following items were deleted from the chart)10:15 03:16 Home Meds: Latuda 60 mg oral tab 1 tab Twice Daily; 4 jl10:15 10:12 Home Meds: Zoloft 150MG Oral [...] rce(s) Supporting Document(s) ID Date Data Source [id number] 02/15/2021 09:17:00 PM EDT [facility] Name Value Range Interpretation Code Description Data Stephanie rce(s) Supporting Document(s) SALICYLATE < 1.7 mg/dL 0.0-20.0 [facility] ID Date Data Source [id number] 02/15/2021 09:17:00 PM EDT [facility] Name Value Range Interpretation Code Description Data Stephanie rce(s) Supporting Document(s) ETOH NONE DETECTED [facility] NONE DETECTED ID Date Data Source [id number] 02/15/2021 09:17:00 PM EDT [facility] Name Value Range Interpretation Code Description Data Stephanie rce(s) Supporting Document(s) ACETAMINOPHEN < 2.0 ug/mL 0-30 [facility] Date Data Source [id number] 02/15/2021 09:17:00 PM EDT [facility] Name Value Range Interpretation Code Description Data Stephanie rce(s) Supporting Document(s) GLU 91 mg/dL 70-110 [facility] Patients taking Sulfasalazine may have f alsely depressedGlucose levels. Patients taking Sulfapyridine may havefalsely elevated Glucose levels. Patients should be drawnfor Glucose before the initial administration of eitherdrug. BUN 17 mg/dL 7-23 [facility] CRE 0.697 mg/dL 0.500-1.300 [facility] GFR > 60 mL/min [facility] CHLORIDE 110 mmol/L 99-110 [facility] NA 144 mmol/L 136-147 [facility] POTASSIUM 4.2 mmol/L 3.5-5.1 [facility] TCO2 26 mmol/L 20-33 [facility] ANION GAP 12.2 10.0-20.0 [facility] CA 8.8 mg/dL 8.3-10.7 [facility] ALKALINE PHOS 124 U/L 45-117 [facility] TP 7.3 g/dL 6.0-7.8 [facility] ALB 3.8 g/dL 3.5-5.0 [facility] ESRD Dialysis patient Albumin reference range: 2.9-4.4 g/dL GL 3.5 g/dL 2.3-3.5 [facility] A/G 1.1 1.0-2.5 [facility] T. BILIRUBIN 0.3 mg/dL 0.1-1.1 [facility] The Dimension [place] Total Bilirubin is n ot recommended forpatients undergoing treatment with eltrombopag (Promacta)due to the potential for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 EntryPatient presented as unkempt, disheveled and malodorous today. We discussedMarilu's good behaviors from yesterday and we also discussed boundaries todayin regards to staff and her ad operations coordinator. Patient became upset whenwe discussed boundaries [...] breath that was not audible to myself,the ad operations coordinator or the charge nurse.Mental status exam: [...] nursing staff.Continue to await bed availability at [facility]. Patient currently d enies anymedical/physical complaints.ObjectiveVital SignsVital [...] SIGNED: 01/24/21 Electronically SignedTIME SIGNED: 951 DYLAN RIBEIRO Name Value Range Interpretation Code Description Data Stephanie rce(s) Supporting Document(s) ID Date Data Source [id number] 01/23/2021 09:20:00 AM EDT [address] [id number] HEALTH PROGRESS NOTEPATIENT NAME: YARELI HATCH PHYSICIAN: BROOKLYN ONEILL MDAUTHOR: Gema WHITE,Lana. DATE: 01/03/21 MR#: [id number] NOTE DATE: 01/23/21 RM#: 308EVALUATION TIME: 935 is a 20-year-old white female.CC/Hx Present Illness"I overdosed"Events Since Last EntryPresented today as cooperative and pleasant. In the meeting today the chargenurse was present, myself, and her ad operations coordinator Madelin. We discussedthe events yesterday that [...] also wrote a letter inputted underneath the ad operations coordinator'sdoor and inquired about this. This was discussed with her and she was informedthis was a good demonstration of how to use her coping skills. We discussedher behavior plan, how it was going to be developed, and what things she canexpect in it. We continue to discuss life skills. [facility] [...] the various life skills we talked about nadine she did state she is willing to [...] medication use. Monitor weight. Continue working on [email or web address] and working with staff to implement and coordinate her plan of care.Continuing to await bed availability at [facility].ObjectiveVital SignsVital Signs-LastResult Date TimeB/P 118/78 01/23 [...] SIGNED: 01/23/21 Electronically SignedTIME SIGNED: 935 DYLAN RIBEIRO Name Value Range Interpretation Code Description Data Stephanie rce(s) Supporting Document(s) ID Date Data Source [id number] 01/22/2021 11:07:00 AM EDT [address] [address]DU[place]JA HEALTH PROGRESS NOTEPATIENT NAME: YARELI HATCH PHYSICIAN: BROOKLYN ONEILL MDAUTHOR: Lana Aquino. DATE: 01/03/21 MR#: [id number] NOTE DATE: 01/22/21 RM#: 308EVALUATION TIME: 1116 [...] Continue to await for bed availability at [facility].Patient denies any physical and/or medical concerns [...] SIGNED: 01/22/21 Electronically SignedTIME SIGNED: 1116 DYLAN RIBEIRO Name Value Range Interpretation Code Description Data Stephanie rce(s) Supporting Document(s) ID Date Data Source [id number] 01/21/2021 08:25:00 AM EDT [address] HEALTH PROGRESS NOTEPATIENT NAME: YARELI HATCH CATTENGIOVANNY PHYSICIAN: BROOKLYN ONEILL MDAUTHOR: Dylan AquinoADM. DATE: 01/03/21 MR#: [id number] NOTE DATE: 01/21/21 RM#: [id number] TIME: 1000 [...] to wait for an open bed at [facility] for housing.ObjectiveVital SignsVital Signs-LastResult Date TimeB/P [...] behavior intolerableDATE SIGNED: 01/21/21 Electronically SignedTIME SIGNED: 999 DYLAN RIBEIRO Name Value Range Interpretation Code Description Data Stephanie rce(s) Supporting Document(s) ID Date Data Source [id number] 01/20/2021 11:20:00 AM EDT [address] HEALTH PROGRESS NOTEPATIENT NAME: YARELI HATCH PHYSICIAN: BROOKLYN ONEILL MDAUTHOR: Gema WHITE,Lana. DATE: 01/03/21 MR#: [id number] NOTE DATE: 01/20/21 RM#: [id number] TIME: 1255 [...] would notice. She stated she went into thebathroom to use the bathroom but staff barge [...] safety. Continue to await bed availability at [facility] for placement as per herAOT order. Lab work will again be ordered [...] SIGNED: 01/20/21 Electronically SignedTIME SIGNED: 1255 DYLAN RIBEIRO Name Value Range Interpretation Code Description Data Stephanie rce(s) Supporting Document(s) ID Date Data Source [id number] 01/18/2021 09:57:00 AM EDT [facility] Name Value Range Interpretation Code Description Data Stephanie rce(s) Supporting Document(s) CHOL 182 mg/dL 100-200 [facility] TRIG 118 mg/dL 30-190 [facility] HDL 52 mg/dL 35-80 [facility] LDL DIRECT 111 mg/dL 0-100 [facility] VLDL 19 mg/dL 0-100 [facility] ID Date Data Source [id number] 01/18/2021 09:57:00 AM EDT [facility] [place] Name Value Range Interpretation Code Description Data Stephanie rce(s) Supporting Document(s) GLU 113 mg/dL 70-110 [facility] Patients taking Sulfasalazine may have f alsely depressedGlucose levels. Patients taking Sulfapyridine may havefalsely elevated Glucose levels. Patients should be drawnfor Glucose before the initial administration of eitherdrug. BUN 17 mg/dL 7-23 [facility] CRE 0.741 mg/dL 0.500-1.300 [facility] GFR > 60 mL/min [facility] CHLORIDE 107 mmol/L 99-110 [facility] NA 142 mmol/L 136-147 [facility] POTASSIUM 4.4 mmol/L 3.5-5.1 [facility] TCO2 30 mmol/L 20-33 [facility] ANION GAP 9.4 10.0-20.0 [facility] CA 9.2 mg/dL 8.3-10.7 [facility] ALKALINE PHOS 111 U/L 45-117 [facility] TP 7.3 g/dL 6.0-7.8 [facility] ALB 3.9 g/dL 3.5-5.0 [facility] ESRD Dialysis patient Albumin reference range: 2.9-4.4 g/dL GL 3.4 g/dL 2.3-3.5 [facility] A/G 1.1 1.0-2.5 [facility] T. BILIRUBIN 0.5 mg/dL 0.1-1.1 [facility] The [facility] [place] Total Bilirubin is n ot recommended forpatients undergoing treatment with eltrombopag (Promacta)due to the potential for falsely elevated results. ALTI 57 U/L 6-54 [facility] Patients taking Sulfasalazine and/or Sul fapyridine may havefalsely depressed ALT levels. Patients should be drawn forALT before the initial administration of either drug. AST 31 U/L 6-38 [facility] Patients taking Sulfasalazine and/or Sul fapyridine may havefalsely depressed AST levels. Patients should be drawn forAST before the initial administration of either drug. ID Date Data Source [id number] 01/17/2021 10:24:00 AM EDT [place] [address]MENTAL HEALTH PROGRESS NOTEPATIENT NAME: YARELI HATCH PHYSICIAN: BROOKLYN ONEILL MDAUTHOR: Gema WHITE,DylanADM. DATE: 01/03/21 MR#: [id number] NOTE DATE: 01/17/21 #: [id number] TIME: 1036 is a 20-year-old white female.CC/Hx Present Illness"I overdosed"Events Since Last EntryAgain today the patient presented upon entering treatment team meeting with sheldon and howard stanley. He states she feels good today [...] to change to Abilify. After further discussion brittniollubnaarily made the choice to stay on her Latuda. She denies having aheadache yesterday. She denies experiencing any ill side effects from herpsychotropic medications and she also denies having any physical complaints.He said she spoke with her intensive manager case yesterday, Eve and theycompleted the enrollment paperwork required the intensive case managementprogram. She also said she spoke with Lorraine Regarding a bed at [facility] andaccording to the director of the [...] SIGNED: 01/17/21 Electronically SignedTIME SIGNED: 1036 DYLAN RIBEIRO Name Value Range Interpretation Code Description Data Stephanie rce(s) Supporting Document(s) ID Date Data Source [id number] 01/16/2021 01:40:00 PM EDT [place] [address]MENTAL HEALTH PROGRESS NOTEPATIENT NAME: YARELI HATCH PHYSICIAN: BROOKLYN ONEILL MDAUTHOR: Gema WHITE,DylanADM. DATE: 01/03/21 MR#: [id number] NOTE DATE: 01/16/21 RM#: 3RDOVERFLEVALUATION TIME: 1413 [...] Shortly afterthe meeting she approached Gloria her ad operations coordinator asking to be put onthe Abilify [...] and maintain safety. Await bed availability at [facility] as in accordancewith her AOT. Monitor for [...] SIGNED: 01/16/21 Electronically SignedTIME SIGNED: 1413 DYLAN RIBEIRO Name Value Range Interpretation Code Description Data Stephanie rce(s) Supporting Document(s) ID Date Data Source [id number] 01/16/2021 10:03:00 AM EDT [facility] Exam Number: [id number] Reported By: - JEREMIAH PEOPLES MD Signed By: JEREMIAH PEOPLES MD Name Value Range Interpretation Code Description Data Stephanie rce(s) Supporting Document(s) ID Date Data Source [id number] 01/15/2021 11:23:00 AM EDT [facility] [place], [place] [address]CALV[facility] HEALTH PROGRESS NOTEPATIENT NAME: YARELI HATCH CHANELLGIOVANNY PHYSICIAN: BROOKLYN ONEILL MDAUTHOR: Lana Aquino. DATE: 01/03/21 MR#: [id number] NOTE DATE: 01/15/21 RM#: 3RDOVERFLEVALUATION TIME: 1136 [...] wait for a bed tobecome available at [facility] as per her AOTDATE SIGNED: 01/15/21 Electronically SignedTIME SIGNED: 1136 DYLAN RIBEIRO Name Value Range Interpretation Code Description Data Stephanie rce(s) Supporting Document(s) ID Date Data Source [id number] 01/14/2021 03:17:00 PM EDT [facility] [place], [place] [address]MENTAL HEALTH PROGRESS NOTEPATIENT NAME: YARELI HATCH PHYSICIAN: BROOKLYN ONEILL MDAUTHOR: Gema WHITE,Lana. DATE: 01/03/21 MR#: [id number] NOTE DATE: 01/14/21 RM#: 320EVALUATION TIME: 1523 [...] increase in dose of her Latuda at . She alsocomplained of having a headache on [...] SIGNED: 01/14/21 Electronically SignedTIME SIGNED: 1523 DYLAN - CHRISTOPHER GEMA Name Value Range Interpretation Code Description Data Stephanie rce(s) Supporting Document(s) ID Date Data Source [id number] 01/11/2021 10:27:00 AM EDT [address] HEALTH PROGRESS NOTEPATIENT NAME: YARELI HATCH PHYSICIAN: BROOKLYN ONEILL MDAUTHOR: Alfred SMITH,MuhammadA. DATE: 01/03/21 MR#: [id number] NOTE DATE: 01/11/21 RM#: [id number] TIME: 1038 is a 20-year-old white female.CC/Hx Present Illness"I overdosed"Events Since Last EntryPatient asked to meet with Dr. Simon. Patient stated that she was havingsuicidal ideations [...] SIGNED: 01/11/21 Electronically SignedTIME SIGNED: 1038 AMADA SIMON MD Name Value Range Interpretation Code Description Data Stephanie rce(s) Supporting Document(s) ID Date Data Source [id number] 01/10/2021 11:17:00 AM EDT [place] [address]MENTAL HEALTH PROGRESS NOTEPATIENT NAME: YARELI HATCH PHYSICIAN: BROOKLYN ONEILL MDAUTHOR: Lana Aquino. DATE: 01/03/21 MR#: [id number] NOTE DATE: 01/10/21 RM#: 320EVALUATION TIME: 1121 [...] SIGNED: 01/10/21 Electronically SignedTIME SIGNED: 1121 DYLAN WHITE GEMA Name Value Range Interpretation Code Description Data Stephanie rce(s) Supporting Document(s) ID Date Data Source [id number] 01/09/2021 03:23:00 PM EDT [place] [address]MENTAL HEALTH PROGRESS NOTEPATIENT NAME: YARELI HATCH CATTENDING PHYSICIAN: BROOKLYN ONEILL MDAUTHOR: Gema WHITE,aLna. DATE: 01/03/21 MR#: [id number] NOTE DATE: 01/09/21 RM#: 320EVALUATION TIME: 1527 is a 20-year-old white female.CC/Hx Present Illness"I overdosed"Events Since Last EntryYareli met with treatment team today and she presented overly bright. Shetalked about her bath last night that she took with staff in the [facility]. She expressed excitement regarding this as this was the first time shetook a bath with bubbles. Staff reported she was unaware of the proper way towash her body, how to clean herself after defecation and how to properly carefor her feminine needs. During this meeting we talked about this and Elianselena asked if this was correct; for a response she attempted to change thetopic. It was explained to her this was ok and [facility]. As [...] side effectsDATE SIGNED: 01/09/21 Electronically SignedTIME SIGNED: 152 DYLAN RIBEIRO Name Value Range Interpretation Code Description Data Stephanie rce(s) Supporting Document(s) ID Date Data Source [id number] 01/09/2021 08:36:00 AM EDT [address] HEALTH PROGRESS NOTEPATIENT NAME: YARELI HATCH PHYSICIAN: BROOKLYN ONEILL MDAUTHOR: Lana Aquino. DATE: 01/03/21 MR#: [id number] NOTE DATE: 01/09/21 RM#: 320EVALUATION TIME: 908 [...] in process and awaitingfor bed availability at [facility].Assessment/PlanDiagnosis1. Suicide attemptStatus Acute2. Major depressive disorderStatus Chronic3. Bipolar affective disorderStatus Chronic4. Borderline personality disorderStatus Chronic5. Obesity, morbidStatus ChronicCoordination of care provided with nursing staffRisk/benefits discussed side effectsADDENDUM: Dylan Aquino on 01/09/21 at 0926progress note is for 01/08/2021ATE SIGNED: 01/09/21 Electronically SignedTIME SIGNED: 908 DYLAN RIBEIRO Name Value Range Interpretation Code Description Data Stephanie rce(s) Supporting Document(s) ID Date Data Source [id number] 01/07/2021 02:35:00 PM EDT [facility] [place], [place] [address]MENTAL HEALTH PROGRESS NOTEPATIENT NAME: YARELI AHTCH CATSALVADOR PHYSICIAN: BROOKLYN ONEILL MDAUTHOR: Surendra SMITH,P.ADM. DATE: 01/03/21 MR#: [id number] NOTE DATE: 01/07/21 RM#: 320EVALUATION TIME: 1436 is a 20-year-old white female.CC/Hx Present Illness"I overdosed"Events Since Last EntryYareli was seen today along with the ad operations coordinator, Gloria, and a [facility]student [facility]. She believes herself to be Romel today. Shestates she is doing well. She expressed her interest in AOT for 6 months. Iinformed the patient that we have talked to Ominicole Tovar about her interest.Patient states she just want to leave the place and go outside. Patient doesnot have any address to discharge to. She [facility]. Patient was informed that there are beds open in [facility] andshe could be transferred there. She was [...] with Lorraine Hogan and other agencies including [facility] for housing.Will increase her Latuda.Portions of this section were scribed by Shell Ariza on 01/10/21 at 1646DATE SIGNED: 01/10/21 Electronically SignedTIME SIGNED: 1648 BROOKLYN ONEILL MD Name Value Range Interpretation Code Description Data Stephanie rce(s) Supporting Document(s) ID Date Data Source [id number] 01/06/2021 02:26:00 PM EDT [facility] [place], [place] [address]MENTAL HEALTH PROGRESS NOTEPATIENT NAME: YARELI HATCH CATTENGIOVANNY PHYSICIAN: BROOKLYN ONEILL MDAUTHOR: Surendra SMITH,P.ADM. DATE: 01/03/21 MR#: [id number] NOTE DATE: 01/06/21 RM#: [id number] TIME: 1427 is a 20-year-old white female.CC/Hx Present Illness"I overdosed"Events Since Last EntryYareli was seen today along with the ad operations coordinator, Gloria. Patientwas brought to the ER by rescue squad due to overdose. [facility] in [place], which then she was brought to the [facility] in [facility]. She is on waiting list for [facility] in [place] but isunsure how long will it take. She states she drank a lot of coffee which causedher to be awake whole night and she spent more than 24 hours awake. She gotoverwhelmed and overdosed on Ibuprofen and Prove ntil as she was annoyed by acase manager cath lab who was trying to get her sign [...] 01/06 0859Resp 18 01/06 0634Current MedicationsMiscellaneous Read [id number] NANicotine (Nicorette) 2 MG Q2HPRN PRN POCarbamide [...] plan and housing. We are working with [facility] and other housingagencies such as [facility] for supportive housing options.Portions of this section were scribed by Shell Ariza on 01/10/21 at 1643DATE SIGNED: 01/10/21 Electronically SignedTIME SIGNED: 164 BROOKLYN ONEILL MD Name Value Range Interpretation Code Description Data Stephanie rce(s) Supporting Document(s) ID Date Data Source [id number] 01/04/2021 09:49:00 AM EDT [facility] PSYCHIATRIC ASSESSMENTPATIENT NAME: YARELI HATCH MR#: [id number] PHYSICIAN: AMADA SIMON MDAUTHOR: Amada Simon MD DATE: 01/03/21 RM#: 3RDHistoryIdentificationPatient is a 20-year-old white female who was brought to [facility] ED by rescuesquad.Chief Complaint"I overdosed"Reason for AdmissionPatient overdosed on Ibuprofen and Proventil. Patient is not sure why she didit, but she also states that it may have been a suicidal attempt. Her sleep isok. Appetite is good. She has a hx of impulse control problem. She has beenfeeling hopelese, helpless and depressed at times. She was living at [facility]. Shehas been been asked by the [facility] not to return back with them, so she is homelessat this time.History of Presenting IllnessPatient was brought to ED by rescue squad due to overdose. [facility], to [facility], which then she was brought to the [facility] building in [facility]. Sheis on the waiting list for [facility] in [place] but is unsure on how long it willtake. Patient has a long history of suicidal attempts, and also has hadnumerous inpatient admissions to this facility and to other facilities throughout [facility].Portions of this section were scribed by [...] of Knowledge: awareness of low normal rangeAdditional Lelud27-bnnk-ene white female who was cooperative during the [...] SIGNED: 01/04/21 Electronically SignedTIME SIGNED: 1507 AMADA SIMON MD Name Value Range Interpretation Code Description Data Stephanie rce(s) Supporting Document(s) ID Date Data Source [id number] 01/03/2021 05:30:00 PM EDT [address] HEALTH HISTORY AND PHYSICALPATIENT NAME: YARELI HATCH MR#: [id number] PHYSICIAN: AMADA SIMON MDAUTHOR: Theresa Melchor DATE: 01/03/21 #: 3RDHistoryChief Complaint/Admit Reason"I overdosed"History of Presenting IllnessThiselena is a 20-year-old white female who denies [...] MeanPulse Ox 99 99 99O2 DeliveryO2 Flow ZgkeWlM2Jqhxzwpn ExaminationGeneral Appearance no acute distress, conversant, face [...] CloudyUrine pH (5.0 - 8.0) 6.0Ur Specific [place] (1.010 - 1.025) 1.033 HUrine Protein (Negative) 2+Urine Ketones (NEGATIVE) TraceUrine Blood (NEGATIVE) NegativeUrine Nitrite (Negative) NegativeUr Bilirubin Confirm (NEGATIVE) NegativeUrine Urobilinogen (0.2 - 1.0 mg/dL) 1.0Urine Leukocytes (Negative) NegativeUrine RBC (NONE SEEN) 0-2 RBCs/HPFUrine WBC (NONE SEEN) 0-2 WBCs/HPFUrine Crystals (NONE SEEN) MODERATE AMORPHOUSUrine Bacteria (NONE SEEN) ModerateUrine Glucose (NEGATIVE) Mknktnrp22/261785RexwoyapONIAX-60 (CORDELL) (NEGATIVE) ZORWNLFTGyseydapwzff10/24 1602 URINE,CC: Urine Culture - RESAssessment/PlanDiagnosis/Problem1. Suicide attemptStatus Acute2. Major depressive disorderStatus Chronic3. Bipolar affective disorderStatus Chronic4. Borderline personality disorderStatus Chronic5. Obesity, morbidStatus General Manager [employer] nicAdditional NotesWill defer psychiatric problems to our psychiatry teamPatient denies medical issues at present and she has been cleared medically.Resuscitation status Full codePlan discussed with patientCase discussed with nursing staffCopies ToCopies to Family Provider: NO,ONEDATE SIGNED: 01/03/21 Electronically SignedTIME SIGNED: 1802 THERESA RADHA MELCHOR Name Value Range Interpretation Code Description Data Stephanie rce(s) Supporting Document(s) ID Date Data Source [id number] 01/03/2021 12:52:00 PM EDT [facility] Name Value Range Interpretation Code Description Data Stephanie rce(s) Supporting Document(s) LCOVID-19, CORDELL NEGATIVE [facility] This lab was ordered by [facility] and reported by [facility]. ID Date Data Source [id number] 01/03/2021 01:43:00 PM EDT [facility] [place] Name Value Range Interpretation Code Description Data Stephanie rce(s) Supporting Document(s) COVID-19, CORDELL NEGATIVE NEGATIVE [facility] Methodology: Isothermal Nucleic Acid Amp lification [...] Emergency Use Authorization. ID Date Data Source [id number] 01/02/2021 04:50:00 PM EDT [facility] [place] Name Value Range Interpretation Code Description Data Stephanie rce(s) Supporting Document(s) PCP VISTA NEG NEGATIVE [facility] MINIMUM LEVEL OF DETECTION IS 25 ng/ml BENZODIAZEPINES NEG NEGATIVE [facility] MINIMUM LEVEL OF DETECTION IS 200 ng/ml COCAINE VISTA NEG NEGATIVE [facility] MINIMUM LEVEL OF DETECTION IS 300 ng/ml AMPHETAMINES NEG NEGATIVE [facility] MINIMUM LEVEL OF DETECTION IS 1000 ng/ml BARBITURATES NEG NEGATIVE [facility] al CUTOFF CONCENTRATION IS 200 ng/ml CANNABINOIDS NEG NEGATIVE [facility] al CUTOFF CONCENTRATION IS 50 ng/ml METHADONE VISTA NEG NEGATIVE [facility] MINIMUM LEVEL OF DETECTION IS 300 ng/ml OPIATE VISTA NEG NEGATIVE [facility] MINIMUM DETECTION LEVEL IS 300 ng/ml ID Date Data Source [id number] 01/02/2021 04:36:00 PM EDT [facility] [place] Urine Bilirubin test must be confirmed w ith Ictotest Method Urine Bilirubin test must be confirmed w ith Ictotest Method Name Value Range Interpretation Code Description Data Stephanie rce(s) Supporting Document(s) URINE COLOR DK YELLOW [facility] UAPR Cloudy [facility] UGLU Negative NEGATIVE [facility] URINE BILIRUBIN Negative NEGATIVE [facility] UKET Trace NEGATIVE [facility] USG 1.033 1.010-1.025 [facility] UBLO Negative NEGATIVE [facility] UpH 6.0 5.0-8.0 [facility] UPRO 2+ Negative [facility] UUB 1.0 mg/dL 0.2-1.0 [facility] UNIT Negative Negative [facility] ULEU Negative Negative [facility] ID Date Data Source [id number] 01/02/2021 04:36:00 PM EDT [facility] [place] Urine Bilirubin test must be confirmed w ith Ictotest Method Urine Bilirubin test must be confirmed w ith Ictotest Method Name Value Range Interpretation Code Description Data Stephanie rce(s) Supporting Document(s) URINE RBC 0-2 RBCs/HPF NONE SEEN [facility] URINE WBC 0-2 WBCs/HPF NONE SEEN [facility] URINE BACTERIA Moderate NONE SEEN [facility] l A URINE CULTURE HAS BEEN ADDED TO THIS S PECIMEN URINE EPI. Moderate NONE SEEN [facility] URINE CRYSTAL MODERATE AMORPHOUS NONE SEEN [facility] ID Date Data Source [id number] 01/02/2021 04:00:00 PM EDT [facility] [place] Name Value Range Interpretation Code Description Data Stephanie rce(s) Supporting Document(s) WBC 9.40 x10E3/uL 4.0-10.5 [facility] RBC 4.29 x10E6/uL 4.20-5.40 [facility] Hemoglobin 13.0 g/dL 12.0-16.0 [facility] Hematocrit 38.1 % 37.0-47.0 [facility] MCV 88.8 fL 81.0-99.0 [facility] MCH 30.3 pg 27.0-31.0 [facility] MCHC 34.1 g/dL 32.7-35.6 [facility] RDW 12.0 % 11.5-14.0 [facility] Platelet count 278 x10E3/uL 150-450 [facility] ital MPV 9.1 fl 6.9-9.5 [facility] Neutrophils 58.6 % 34-64 [facility] Lymphocytes 32.4 % 25-45 [facility] Monocytes 8.1 % 1.7-10.6 [facility] Eosinophils 0.4 % 0.4-7.0 [facility] Basophils 0.2 % 0.1-2.0 [facility] Imm. Gran. 0.3 % 0.1-2.0 [facility] Abs. Neutro. 5.50 x10E3/uL 1.2-7.6 N [facility] [place] Abs. Lymph. 3.05 x10E3/uL 1.0-3.5 [facility] Abs. Kerr. 0.76 x10E3/uL 0.1-1.0 [facility] Abs. Eosin. 0.04 x10E3/uL 0.1-0.7 [facility] Abs. Baso. 0.02 x10E3/uL 0.0-0.1 [facility] Abs. Imm. Gran. 0.03 x10E3/uL 0.0-0.1 [facility] spital ANRBC% 0 % 0 [facility] ID Date Data Source [id number] 01/02/2021 05:13:00 PM EDT [facility] [place] Name Value Range Interpretation Code Description Data Stephanie rce(s) Supporting Document(s) SALICYLATE < 1.7 mg/dL 0.0-20.0 [facility] ID Date Data Source [id number] 01/02/2021 05:13:00 PM EDT [facility] [place] Name Value Range Interpretation Code Description Data Stephanie rce(s) Supporting Document(s) ACETAMINOPHEN < 2.0 ug/mL 0-30 [facility] Date Data Source [id number] 01/02/2021 05:13:00 PM EDT [facility] [place] Name Value Range Interpretation Code Description Data Stephanie rce(s) Supporting Document(s) HCG QUAL SERUM Negative Negative [facility] l ID Date Data Source [id number] 01/02/2021 05:13:00 PM EDT [facility] [place] Name Value Range Interpretation Code Description Data Stephanie rce(s) Supporting Document(s) ETOH NONE DETECTED [facility] NONE DETECTED ID Date Data Source [id number] 01/02/2021 05:13:00 PM EDT [facility] [place] Name Value Range Interpretation Code Description Data Stephanie rce(s) Supporting Document(s) GLU 119 mg/dL 70-110 [facility] Patients taking Sulfasalazine may have f alsely depressedGlucose levels. Patients taking Sulfapyridine may havefalsely elevated Glucose levels. Patients should be drawnfor Glucose before the initial administration of eitherdrug. BUN 14 mg/dL 7-23 [facility] CRE 0.783 mg/dL 0.500-1.300 [facility] GFR > 60 mL/min [facility] CHLORIDE 109 mmol/L 99-110 [facility] NA 144 mmol/L 136-147 [facility] POTASSIUM 3.6 mmol/L 3.5-5.1 [facility] TCO2 26 mmol/L 20-33 [facility] ANION GAP 12.6 10.0-20.0 [facility] CA 9.2 mg/dL 8.3-10.7 [facility] ALKALINE PHOS 110 U/L 45-117 [facility] TP 7.8 g/dL 6.0-7.8 [facility] ALB 4.0 g/dL 3.5-5.0 [facility] ESRD Dialysis patient Albumin reference range: 2.9-4.4 g/dL GL 3.8 g/dL 2.3-3.5 [facility] A/G 1.1 1.0-2.5 [facility] T. BILIRUBIN 0.3 mg/dL 0.1-1.1 [facility] The Dimension [place] Total Bilirubin is n ot recommended forpatients undergoing treatment with eltrombopag (Promacta)due to the potential for falsely elevated results. ALTI 47 U/L 6-54 [facility] Patients taking Sulfasalazine and/or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 psych historyof bipolar disorder, poor impulse control and borderline personality disorderChief complaint concern about her ability to maintain safety and possiblesuicidal thoughtsEvents Since Last EntryYareli was seen today along with the ad operations coordinator, Gloria, and a PAstudent from [facility]. She is doing well. I was informed [...] insists thatI need to refer her to DSS. But my concern is such things do [...] rce(s) Supporting Document(s) ID Date Data Source [id number] 11/26/2020 02:11:00 PM EDT [place] [id number] HEALTH PROGRESS NOTEPATIENT NAME: JELENA HATCHKAYLA CATTENGIOVANNY PHYSICIAN: BROOKLYN ONEILL MDAUTHOR: Surendra SMITH,P.ADM. DATE: 10/31/20 MR#: [id number] NOTE DATE: 11/26/20 RM#: 310EVALUATION TIME: 1411 is 20-year-old female, currently single, past psych historyof bipolar disorder, poor impulse control and borderline personality disorderChief complaint concern about her ability to maintain safety and possiblesuicidal thoughtsEvents Since Last EntryYareli was seen today along with the ad operations coordinator, Gloria, and a PAstudent from [facility]. She was irritated and angry today. She [...] will be making [facility] referrals to other [facility] also. Yareli continued to express [...] We are in pursuit of an appropriate residential or a safe dischargeoption for her. Ji Ng is coming here tomorrow, to do an intake for afamily senior care for her. Will also consider increasing her Zyprexa.Portions of this section were scribed by Shell Ariza on 11/26/20 at 1503DATE SIGNED: 11/26/20 Electronically SignedTIME SIGNED: 1507 BROOKLYN ONEILL MD Name Value Range Interpretation Code Description Data Stephanie rce(s) Supporting Document(s) ID Date Data Source [id number] 11/25/2020 02:44:00 PM EDT [address] HEALTH PROGRESS NOTEPATIENT NAME: YARELI HATCH PHYSICIAN: BROOKLYN ONEILL MDAUTHOR: Surendra SMITH,P.ADM. DATE: 10/31/20 MR#: [id number] NOTE DATE: 11/25/20 RM#: 310EVALUATION TIME: 1444 is 20-year-old female, currently single, past psych historyof bipolar disorder, poor impulse control and borderline personality disorderChief complaint concern about her ability to maintain safety and possiblesuicidal thoughtsEvents Since Last EntryYareli was seen today along with the ad operations coordinator, Gloria, and [facility]. She is doing the same. She does not show anysignificant improvement. Patient was informed that we are applying for [facility] for family care. I was informed by [...] it". Discussion about her diagnosis came up andshmainor was educated about her treatment resistant disorder. [...] Patient states this does not matter to melissause she is already going to stay here for long. She shows hopeless andhelpless, and she projects the same on us and want us to feel the same. Perpatient, she has a history of being in [facility] in her childhood.Portions of this [...] further hospitalization. Gloria is making referral to [facility] in multiple [facility] [place].Portions of this section were scribed by Shell Ariza on 11/25/20 at 1926DATE SIGNED: 11/25/20 Electronically SignedTIME SIGNED: 1934 BROOKLYN ONEILL MD Name Value Range Interpretation Code Description Data Stephanie rce(s) Supporting Document(s) ID Date Data Source [id number] 11/22/2020 10:16:00 AM EDT [place] [id number] HEALTH PROGRESS NOTEPATIENT NAME: YARELI HATCH CATTENGIOVANNY PHYSICIAN: BROOKLYN ONEILL MDAUTHOR: Colleen SMITH,DhruvADM. DATE: 10/31/20 MR#: [id number] NOTE DATE: 11/22/20 RM#: 310EVALUATION TIME: 1018 [...] to go and she might go to [facility] down the road as well.Discussed with the ad operations coordinator about treatment plan that patient iscurrently [...] SIGNED: 11/22/20 Electronically SignedTIME SIGNED: 1018 BOGDAN MACIAS MD Name Value Range Interpretation Code Description Data Stephanie rce(s) Supporting Document(s) ID Date Data Source [id number] 11/21/2020 01:41:00 PM EDT [address] HEALTH PROGRESS NOTEPATIENT NAME: YARELI HATCH [facility]ITAL[facility] PH[facility]ICIAN: BROOKLYN ONEILL MDAUTHOR: Surendra SMITH,P.ADM. DATE: 10/31/20 MR#: [id number] NOTE DATE: 11/21/20 RM#: 310EVALUATION TIME: 1356 [...] [facility]. [facility] [...] unable to be placed in many neighboring [facility] such [facility] where [facility] residential and [facility] Her prognosis remains guarded. She denied suicidal [...] be an appropriate candidate for 24hours supervised residential. She is not making progress. Her providers are alsoworking on finding a different placement for her. Will increase her Zyprexa andpropranolol.Portions of this section were scribed by Shell Ariza on 11/21/20 at 1357DATE SIGNED: 11/21/20 Electronically SignedTIME SIGNED: 1357 BROOKLYN ONEILL MD Name Value Range Interpretation Code Description Data Stephanie rce(s) Supporting Document(s) ID Date Data Source [id number] 11/20/2020 02:02:00 PM EDT [address] [id number] HEALTH PROGRESS NOTEPATIENT NAME: YARELI HATCH CATSALVADOR PHYSICIAN: BROOKLYN ONEILL MDAUTHOR: Surendra SMITH,P.ADM. DATE: 10/31/20 MR#: [id number] NOTE DATE: 11/20/20 RM#: 310EVALUATION TIME: 1403 is 20-year-old female, currently single, past psych historyof bipolar disorder, poor impulse control and borderline personality disorderChief complaint concern about her ability to maintain safety and possiblesuicidal thoughtsEvents Since Last EntryYareli was seen today along with the ad operations coordinator, Gloria, and a PAstudent from [facility]. Patient states she is very stressed. Sheadmits [...] primary school and then she pursued with alternativeschool for her high school. She reports she has been tested for low IQ in earlyage.Topic of her placement came up. Patient states [facility]. She stated she has been allowed to [...] Patient states she was [facility] out [facility] in [facility]; hence, she does not wish to be [...] rce(s) Supporting Document(s) ID Date Data Source [id number] 11/19/2020 01:53:00 PM EDT [place] [address] [id number] HEALTH PROGRESS NOTEPATIENT NAME: YARELI HATCH PHYSICIAN: BROOKLYN ONEILL MDAUTHOR: Surendra SMITH,P.ADM. DATE: 10/31/20 MR#: [id number] NOTE DATE: 11/19/20 RM#: 310EVALUATION TIME: 1354 is 20-year-old female, currently single, past psych historyof bipolar disorder, poor impulse control and borderline personality disorderChief complaint concern about her ability to maintain safety and possiblesuicidal thoughtsEvents Since Last EntryYareli was seen today along with the ad operations coordinator, Gloria, and a PAstudent from [facility]. Patient expressed her irritation and statedthat she [...] inquireabout the AOT and her placement in [place]. She expressed her irritationrelated to her placement issue. She stated, "you do not have to take care of me". The patient states if somehow, she gets AOT and is placed in [place], itwill still not work. The patient also [...] 1999 POChlorpromazine HCl (Chlorpromazine HCl) 300 MG 1300,1999 POBenztropine Mesylate (Cogentin) 1 MG DAILY POBenzocaine/Pectin/Carboxymethylcell [...] wait and then to get into a residential. She has difficultyrealizing the fact it is [...] also has the meeting with state like [facility]. Patientis not happy about it. I told her this is important because they are the majorresource, and they will guide us. She is not making progress.Portions of this section were scribed by Shell Ariza on 11/19/20 at 1820DATE SIGNED: 11/19/20 Electronically SignedTIME SIGNED: 1819 BROOKLYN ONEILL MD Name Value Range Interpretation Code Description Data Stephanie rce(s) Supporting Document(s) ID Date Data Source [id number] 11/18/2020 02:32:00 PM EDT [place] [address]MENTAL HEALTH PROGRESS NOTEPATIENT NAME: YARELI HATCH CATSALVADOR PHYSICIAN: BROOKLYN ONEILL MDAUTHOR: Surendra SMITH,P.ADM. DATE: 10/31/20 MR#: [id number] NOTE DATE: 11/18/20 RM#: 310EVALUATION TIME: 1432 is 20-year-old female, currently single, past psych historyof bipolar disorder, poor impulse control and borderline personality disorderChief complaint concern about her ability to maintain safety and possiblesuicidal thoughtsEvents Since Last EntryYareli was seen today along with the ad operations coordinator, Gloria, and a PAstudent from [facility]. She is doing well today. She was [...] angry child she will be send to [place] and not to [facility]. Patient admitsto not having any compassion [...] has been declined by every agency in town with opening tostay. I am in the process of working with the AOT coordinator to arrange forgetting the AOT done for her. We really do not have anywhere to send here.Given the fact she was on restraints over the weekend and is on xud-ja-qkpexapihgvhpk because she put a pillow over her [...] at 1626DATE SIGNED: 11/18/20 Electronically SignedTIME SIGNED: 328 BROOKLYN ONEILL MD Name Value Range Interpretation Code Description Data Stephanie rce(s) Supporting Document(s) ID Date Data Source [id number] 11/17/2020 11:21:00 PM EDT [address] [id number] NOTE FOLLOW UPPATIENT NAME: YARELI HATCH PHYSICIAN: BROOKLYN ONEILL MDAUTHOR: Dori SMITH,ByronADM. DATE: 10/31/20 MR#: [id number] NOTE DATE: 11/17/20 RM#: 310EVALUATION TIME: 2323 : 00Progress Note Follow UpSummaryI was called [...] for continualobservation.DATE SIGNED: 11/17/20 Electronically SignedTIME SIGNED: 163 NEIL YUSUF MD Name Value Range Interpretation Code Description Data Stephanie rce(s) Supporting Document(s) ID Date Data Source [id number] 11/15/2020 02:15:00 PM EDT [address] [id number] HEALTH PROGRESS NOTEPATIENT NAME: YARELI HATCH PHYSICIAN: BROOKLYN ONEILL MDAUTHOR: Surendra SMITH,P.ADM. DATE: 10/31/20 MR#: [id number] NOTE DATE: 11/15/20 RM#: 310EVALUATION TIME: 1416 is 20-year-old female, currently single, past psych historyof bipolar disorder, poor impulse control and borderline personality disorderChief complaint concern about her ability to maintain safety and possiblesuicidal thoughtsEvents Since Last EntryYareli was seen today along with the ad operations coordinator, and [facility]. She is in a better mood today. [...] treatment plan. we are awaiting information from [facility] for placement effortsPortions of this section were scribed by Shell Ariza on 11/15/20 at 1415DATE SIGNED: 11/15/20 Electronically SignedTIME SIGNED: 141 BROOKLYN ONEILL MD Name Value Range Interpretation Code Description Data Stephanie rce(s) Supporting Document(s) ID Date Data Source [id number] 11/14/2020 07:41:00 PM EDT [place] [address]MENTAL HEALTH PROGRESS NOTEPATIENT NAME: YARELI HATCH CATTENGIOVANNY PHYSICIAN: BROOKLYN ONEILL MDAUTHOR: Surendra SMITH,P.ADM. DATE: 10/31/20 MR#: [id number] NOTE DATE: 11/14/20 RM#: 310EVALUATION TIME: 1948 is 20-year-old female, currently single, past psych historyof bipolar disorder, poor impulse control and borderline personality disorderChief complaint concern about her ability to maintain safety and possiblesuicidal thoughtsEvents Since Last EntryYareli was seen today with ad operations coordinator Cata and a PA student. Sheseems to be in better mood today without any hostility or irritableness. Sheasked the same question, what is happening to her AOT. We advised her that theAOT is being pursued and Lorraine is checking with [facility] and she will get back tous. Ever since Zyprexa has been added her mood has improved. She wants to gothe community residence in [place]. The problem remains the uncertainty aboutwhen the [...] 11/14 1115Current MedicationsPropranolol HCl (Inderal) 10 MG 1999 POChlorpromazine HCl (Chlorpromazine HCl) 300 MG 1300,1999 [...] to pursue AOT as well as with [facility].Portions of this section were scribed by Shell Ariza on 11/14/20 at 1941DATE SIGNED: 11/14/20 Electronically SignedTIME SIGNED: 1948 BROOKLYN ONEILL MD Name Value Range Interpretation Code Description Data Stephanie rce(s) Supporting Document(s) ID Date Data Source [id number] 11/13/2020 04:22:00 PM EDT [place] [address]MENTAL HEALTH PROGRESS NOTEPATIENT NAME: YARELI HATCH CATTENGIOVANNY PHYSICIAN: BROOKLYN ONEILL MDAUTHOR: Surendra SMITH,P.ADM. DATE: 10/31/20 MR#: [id number] NOTE DATE: 11/13/20 RM#: 310EVALUATION TIME: 1625 is 20-year-old female, currently single, past psych historyof bipolar disorder, poor impulse control and borderline personality disorderChief complaint concern about her ability to maintain safety and possiblesuicidal thoughtsEvents Since Last EntryYareli was seen today with the ad operations coordinator. She continues to notshow any insight. [...] an opening in a community residence in [place]. Her Thorazinehas been changed to 300 mg 1PM and 8PM. She was in restrains last evening. Willwork on behavioral modification treatment plan. She is not cognizing well whatshe needs to do.Portions of this section were scribed by Shell Ariza on 11/13/20 at 1622DATE SIGNED: 11/13/20 Electronically SignedTIME SIGNED: 1625 BROOKLYN ONEILL MD Name Value Range Interpretation Code Description Data Stephanie rce(s) Supporting Document(s) ID Date Data Source [id number] 11/12/2020 08:02:00 PM EDT [address] HEALTH PROGRESS NOTEPATIENT NAME: YARELI HATCH PHYSICIAN: BROOKLYN ONEILL MDAUTHOR: Surendra SMITH,P.ADM. DATE: 10/31/20 MR#: [id number] NOTE DATE: 11/12/20 RM#: 310EVALUATION TIME: 2007 is 20-year-old female, currently single, past psych historyof bipolar disorder, poor impulse control and borderline personality disorderChief complaint concern about her ability to maintain safety and possiblesuicidal thoughtsEvents Since Last EntrySt [facility] Centerylsohail told me that she is transitioning to a male, so she wants to be calledAnthony. She was seen with Gloria. She continued to express concerned that thenurses are not called her Rigo as per her concern and address her Yareli.She continued to express her frustration and anger. I explained to her that mary needs to express her intention to people whenever they address herMickayla and that she needs to tell them [...] hospitalization. We are also working with Lorraine [place]o about the benefits of AOT for her. She has been approved for [facility] in [place]. Will also work on her coping skill building.Portions of this section were scribed by Shell Ariza on 11/12/20 at 2002DATE SIGNED: 11/12/20 Electronically SignedTIME SIGNED: 2008 BROOKLYN ONEILL MD Name Value Range Interpretation Code Description Data Stephanie rce(s) Supporting Document(s) ID Date Data Source [id number] 11/12/2020 04:37:00 PM EDT [address] [id number] NOTE FOLLOW UPPATIENT NAME: DAMARIS,YARELI YA PHYSICIAN: BROOKLYN ONEILL MDAUTHOR: Jacque Chowdhury. DATE: 10/31/20 MR#: [id number] NOTE DATE: 11/12/20 RM#: 310EVALUATION TIME: 1641 [...] SIGNED: 11/12/20 Electronically SignedTIME SIGNED: 1642 THERESA COOPER Name Value Range Interpretation Code Description Data [facility] rce(s) Supporting Document(s) ID Date Data Source [id number] 11/11/2020 07:43:00 AM EDT [place] [facility] Exam Number: [id number] Reported By: Maria De Jesus KIM M.D. Signed By: Rakan KIM M.D. Name Value Range Interpretation Code Description Data [facility] rce(s) Supporting Document(s) ID Date Data Source [id number] 11/10/2020 11:20:00 AM EDT [place] [place] [address] HEALTH PROGRESS NOTEPATIENT NAME: YARELI HATCH PHYSICIAN: BROOKLYN ONEILL MDAUTHOR: Colleen SMITH,DhruvA. DATE: 10/31/20 MR#: [id number] NOTE DATE: 11/10/20 RM#: 310EVALUATION TIME: 1121 [...] point. Patient was encouraged to talk to [facility] on if she feels so.ObjectiveVital SignsVital Signs-LastResult [...] SIGNED: 11/10/20 Electronically SignedTIME SIGNED: 112 BOGDAN MACIAS MD Name Value Range Interpretation Code Description Data Stephanie rce(s) Supporting Document(s) ID Date Data Source [id number] 11/09/2020 11:20:00 AM EDT [place] [address] HEALTH PROGRESS NOTEPATIENT NAME: YARELI HATCH PHYSICIAN: BROOKLYN ONEILL MDAUTHOR: Colleen SMITH,DhruvADM. DATE: 10/31/20 MR#: [id number] NOTE DATE: 11/09/20 RM#: 310EVALUATION TIME: 1121 [...] SIGNED: 11/09/20 Electronically SignedTIME SIGNED: 1122 BOGDAN MACIAS MD Name Value Range Interpretation Code Description Data Stephanie rce(s) Supporting Document(s) ID Date Data Source [id number] 11/08/2020 01:30:00 PM EDT [place] [address]MENTAL HEALTH PROGRESS NOTEPATIENT NAME: YARELI HATCH CATTENGIOVANNY PHYSICIAN: BROOKLYN ONEILL MDAUTHOR: Surendra SMITH,P.ADM. DATE: 10/31/20 MR#: [id number] NOTE DATE: 11/08/20 RM#: 310EVALUATION TIME: 1334 Since Last EntryYareli was seen today along with the ad operations coordinator, Gloria, and a PAstudent from [facility]. She apologized for not coming to the [...] and not thinkingcompletely. Lorraine was discussing with [facility] about further treatment options forher as Lorraine [...] rce(s) Supporting Document(s) ID Date Data Source [id number] 11/07/2020 03:12:00 PM [place] [address]MENTAL HEALTH PROGRESS NOTEPATIENT NAME: YARELI HATCH PHYSICIAN: BROOKLYN ONEILL MDAUTHOR: Surendra SMITH,P.ADM. DATE: 10/31/20 MR#: [id number] NOTE DATE: 11/07/20 RM#: 310EVALUATION TIME: 151 Since Last EntryUmm was asked to come [...] rce(s) Supporting Document(s) ID Date Data Source [id number] 11/06/2020 01:30:00 PM EDT [place] [address] PROGRESS NOTEPATIENT NAME: YARELI HATCH PHYSICIAN: BROOKLYN ONEILL MDAUTHOR: Surendra SMITH,P.ADM. DATE: 10/31/20 MR#: [id number] NOTE DATE: 11/06/20 RM#: 310EVALUATION TIME: 1330 Since Last EntryYareli was seen today along with the ad operations coordinator, Gloria, and a PAstudent from [facility]. She continues to be depressed. She is inbetter mood today. She was cooperative durin g the session. She answered all myquestions. Patient states she is forced to talk. She states she is barely ableto manage herself. When I legal counsel Yareli talk about her life and to [...] at 1454DATE SIGNED: 11/06/20 Electronically SignedTIME SIGNED: 1458 BROOKLYN ONEILL MD Name Value Range Interpretation Code Description Data Stephanie rce(s) Supporting Document(s) ID Date Data Source [id number] 11/05/2020 03:44:00 PM EDT [address] HEALTH PROGRESS NOTEPATIENT NAME: JELENA HATCHKAYLA CATTENGIOVANNY PHYSICIAN: BROOKLYN ONEILL MDAUTHOR: Surendra SMITH,P.ADM. DATE: 10/31/20 MR#: [id number] NOTE DATE: 11/05/20 RM#: 310EVALUATION TIME: 1546 Since Last EntryYareli was seen today along with the ad operations coordinator, Gloria, and a PAstudent from [facility]. She continues to be depressed. She has [...] section were scribed by Shell Ariaz on 11/05/20 at 2011Assessment/PlanDiagnosis1. Major depressive disorderStatus [...] rce(s) Supporting Document(s) ID Date Data Source [id number] 11/04/2020 09:38:00 AM EDT [address] [address]OHUYNNE NAME: YARELI HATCH Janette Jensen#: [id number] PHYSICIAN: BROOKLYN ONEILL MD ADM. DATE: 10/31/20PROGRESS NOTE DATE: 11/04/20 .#: 310ACCOUNT #: [id number] NOTEIDENTIFICATION: A 20-year-old female with schizoaffective disorder.VITAL SIGNS: Temperature of 97, pulse of 101, respirations 19, blood pkkwayfp241/79.SUBJECTIVE: The patient came to the interview room. [...] atthis point.Date Dictated: 11/04/2020 09:20:11Date Transcribed: 11/04/2020 08:38:16JV/Erin #: [id number]: 11/04/20919 Electronically SignedTRANS:11/04/20 0938 FILI CANELA MDTRANS BY:KIERRA SIGNED:11/04/20REPORT COPY TO: Name Value Range Interpretation Code Description Data Stephanie rce(s) Supporting Document(s) ID Date Data Source [id number] 11/03/2020 11:54:00 AM EDT [place], [place] [address]PATIENT NAME: YARELI HATCH#: [id number] PHYSICIAN: BROOKLYN ONEILL MD ADM. DATE: 10/31/20PROGRESS NOTE DATE: 11/03/20 RM.#: 310ACCOUNT #: [id number] NOTEIDENTIFICATION: A 20-year-old female with schizoaffective disorder.VITAL [...] self mutilation.Date Dictated: 11/03/2020 09:56:45Date Transcribed: 11/03/2020 10:54:25JV/PUSRuchib #: [id number]: 11/03/20 0956 Electronically SignedTRANS:11/03/20 1154 FILI CANELA MDTRANS BY:KIERRA SIGNED:11/04/20REPORT COPY TO: Name Value Range Interpretation Code Description Data Stephanie rce(s) Supporting Document(s) ID Date Data Source [id number] 11/01/2020 10:43:00 AM EDT [address] [id number] NAME: JELENA HATCHADRIENNE Jensen#: [id number] PHYSICIAN: BROOKLYN ONEILL MD ADM. DATE: 10/31/20ACCOUNT #: [id number] .#: [id number] ASSESSMENTIDENTIFICATION: A 20-year-old female with long history of schizoaffectivedisorder, cluster B personality disorder.CHIEF COMPLAINT: "I am suicidal."REASON FOR ADMISSION: Suicidal ideation.HISTORY OF PRESENT ILLNESS: According to the records and our interview, thepatient was discharged from our service 2 days ago, she was discharged qdhfma63:00 in the morning. She was back in [...] She is living with a friendhere in [place]. The patient stated that she is a [...] tomorrow with differentbeta kimberlyn.Date Dictated: 11/01/2020 10:19:56Date T ranscribed: 11/01/2020 09:43:52JV/Erin #: [id number]: 11/01/20 1019 Electronically SignedTRANS:11/01/20 1043 FILI CANELA MDTRANS BY:KIERRA SIGNED:11/02/20REPORT COPY TO: Name Value Range Interpretation Code Description Data Stephanie rce(s) Supporting Document(s) ID Date Data Source [id number] 10/31/2020 07:04:00 PM EDT [address] [address]VSNTAPZ AND PHYSICALPATIENT NAME: YARELI HATCH MR#: [id number] PHYSICIAN: BOGDAN MACIAS MDAUTHOR: Theresa Chowdhury DATE: 10/31/20 RM#: 3RDHISTORY & PHYSICAL DATE: 10/31/20 : 00EVALUATION TIME: 1906HistoryChief Complaint/Admit ReasonDepression anxiety and suicidal ideationHistory of [...] 17; Temp 98.3; Pulse Ox 96% ; qm2Dclnlpmx ExaminationGeneral Appearance no acute distress, afebrile, alertHead [...] SIGNED: 10/31/20 Electronically SignedTIME SIGNED: 1906 THERESA COOPER Name Value Range Interpretation Code Description [facility]) ID Date Data Source [id number] 10/29/2020 10:26:00 PM EDT [facility] [place] Name Value Range Interpretation Code Description Data [facility] Supporting Document(s) COVID-19, CORDELL NEGATIVE NEGATIVE N [facility] Methodology: Isothermal Nucleic Acid Amp lification [...] Emergency Use Authorization. ID Date Data Source [id number] 10/29/2020 09:38:25 PM EDT [facility] Name Value Range Interpretation Code Description Data Stephanie rce(s) Supporting Document(s) Progress Note [facility] ICHUQq6yYvHVBnDi15/EWFopKWFur1GgFMvuJAu9OHnrVSYdK6EnJRB2gP7dFMP7IHnEQaDmByZdOZZh lbm [file] ICAgICAgICAgICAgICAgICAgICAgICAgICAgICAgIC AgICAgICAgICAgICAgICAgICAgICAgICAgICAgICAgICAgICAgICANCiAgICAgICAgICAgICAgICAgIC AgICAgICAgICAgICAgICAgICAgICAgICAgICAgICAgICAgICAgICAgICAgICAgICAgICAgICAgICAgIC AgICAgICAgICAgICAgICAgICAgICANCiAgICAgICAg ICAgICAgICAgICAgICAgICAgICAgICAgICAgICAgICAgICAgICAgICAgICAgICAgICAgICAgICAgICAg ICAgICAgICAgICAgICAgICAgICAgICAgICAgICAgICANCiAgICAgICAgICAgICAgICAgICAgICAgICAg ICAgICAgICAgICAgICAgICAgICAgICAgICAgICAgIC AgICAgICAgICAgICAgICAgICAgICAgICAgICAgICAgICAgICAgICAgICANCiAgICAgICAgICAgICAgIC AgICAgICAgICAgICAgICAgICAgICAgICAgICAgICAgICAgICAgICAgICAgICAgICAgICAgICAgICAgIC AgICAgICAgICAgICAgICAgICAgICAgICANCiAgICAg ICAgICAgICAgICAgICAgICAgICAgICAgICAgICAgICAgICAgICAgICAgICAgICAgICAgICAgICAgICAg ICAgICAgICAgICAgICAgICAgICAgICAgICAgICAgICAgICANCiAgICAgICAgICAgICAgICAgICAgICAg ICAgICAgICAgICAgICAgICAgICAgICAgICAgICAgIC AgICAgICAgICAgICAgICAgICAgICAgICAgICAgICAgICAgICAgICAgICAgICANCiAgICAgICAgICAgIC AgICAgICAgICAgICAgICAgICAgICAgICAgICAgICAgICAgICAgICAgICAgICAgICAgICAgICAgICAgIC AgICAgICAgICAgICAgICAgICAgICAgICAgICANCiAg ICAgICAgICAgICAgICAgICAgICAgICAgICAgICAgICAgICAgICAgICAgICAgICAgICAgICAgICAgICAg ICAgICAgICAgICAgICAgICAgICAgICAgICAgICAgICAgICAgICANCiAgICAgICAgICAgICAgICAgICAg ICAgICAgICAgICAgICAgICAgICAgICAgICAgICAgIC AgICAgICAgICAgICAgICAgICAgICAgICAgICAgICAgICAgICAgICAgICAgICAgICANCjw/vQKsD2kwkK TrvxW6O0ynCv5BPm0LQP7en6PqZSNiIPephmUkUwsTDyXsMBBlDgwSNdp1EWseNI9BgMXhQ7OwQ8UiSR peRL7IECUzLBRetFUxIDSlWKUxSpT8DVSxZUgeKB9F vLDiJAijQQLcKHWrHQ8TWUWaU317fxRnKA0YCh6MIwMtJK9gga6IVPiuDZTrHrzKUxu2HBzqDQ3GrHCu sRTzBNOrOWULFkNfX8crv6QsRTtrHQDLCIkfFY0Qv1XsuWYlIYl+Uy2QDO4qh9PjFWliEBYhOK4bxr6L LTyRHvHpK2HdfFwiPHDtf8pmGWJiRQ1iyLMnGXB0LC MpLM3qLUAYeh4xnXRpnfyjMCQNYXW0OTNoZkJqNjMhMZUiXDfkSHXYVTvWUjZtH9Tin2QeVxY7UDExHt OiJBzxKGZbEyZ5XO46uRvwPR5JOTKzVHWpXQ91AMV2PZJpAn0XKe8ADkHrBM8ebz5XSVzcKTTxCmvSUc f8RRhcHG3NmSIqO3HycGQdl1mZIgOeK6DVJNT1KZYn No2UYWBsQpMiWHEjNBrsFG9cXCIfDCMNdRutvtR2SB8OHI3vbfYbWF2MFoLsUq7hKf0UIaNaX6WeH6Ht IDMsUTTWUUlrYH2LXGvhTW5vPG5Il1IBvUHitQ7ihk3MIJLpMHHzWpffbk1CIzssL1C1gTnhVICxZXda BAMFAAsnRF6GGIIpCZD3PQPaLoMcLCCJOeDuU34jSQ 8IV0Ayn31kIvC2STKcTkJaFAwnXR42iIaxbrIvmXKvdNfgHM4MYm0+DQplbmRvYmoNCnhyZWYNCjAgMj XJOvAgAAFlKAMeTBIaPcM4GoXgNi8VFZHtMUIoFJSyYvRtQCVfUCRcVHanUVYfZYG6HGonYDRmQJUuFO 6EGoHpRQLvUYk4MHxoAWSmOLTvza4NBIEyNESaXNY7 BeZzEEXlLIDkCHwcSMEiEFCwORYbKQKiIQVqUK0MKcTzXLMuVQTuLdSbXPPhQFUuyz5SDVIaFCOjCgs0 EKOmPFJpYURmXHlbIOZxPZWhUZzrBWGvGLDnZI3PHkYnROEuKOSdGsNvDXPxLGJuzn6LHVVvOXAwMVZo INJwQULuZNFpGVciKCGsFAX4PUIsEPOzWHOwUD7MVl OcGSMsIGD1VDcrFWLnCYQxfc9CXIGfHFMwAJB7MyJrNUKhMQRaATbzINOeFOM2JTu8DNYsPTMwKF2LJk YbTBNwEPIkCEvcGXSeKYYnom4WYOQwLJIkBtQ4KMVxKJTxWBToMWrcWOCkGIV1CDH2VGQrDBTbVW4JIq ApBAGrMPl4DVxyGXDaCEBhxg5ROIVgQCQgWCLaNEDu RXUgGOZwNHd5csAbaBRnGBz2KU3PR8AnfpYsOlUGWe9Kz425IBS0HTTjXq3RM4bjKd2fFIPfMSIYVo5R UFy3MbckOJMlWvaeYhJjNcW4FeDcSUVwMeNkTVHeBZPwElI+PNmvUGSpTSRxOZM2ANH0XOX1PcK7ArD7 YnZ3XcT3YYD9LK0kVCQHKn0+CXjooIKykXbdCDLPZkfyLKSCCdQuQG7COPu= ID Date Data Source [id number] 10/29/2020 06:37:00 PM EDT [facility] Name Value Range Interpretation Code Description Data Stephanie rce(s) Supporting Document(s) SALICYLATE < 1.7 mg/dL 0.0-20.0 [facility] ID Date Data Source [id number] 10/29/2020 06:37:00 PM EDT [facility] Name Value Range Interpretation Code Description Data Stephanie rce(s) Supporting Document(s) ACETAMINOPHEN > 2.0 ug/mL 0-30 [facility] ID Date Data Source [id number] 10/29/2020 06:37:00 PM EDT [facility] Name Value Range Interpretation Code Description Data Stephanie rce(s) Supporting Document(s) HCG QUAL SERUM Negative Negative [facility] ID Date Data Source [id number] 10/29/2020 06:37:00 PM EDT [facility] Name Value Range Interpretation Code Description Data Stephanie rce(s) Supporting Document(s) ETOH 0.000 g/dL NONE DETECTED [facility] NONE DETECTED ID Date Data Source [id number] 10/29/2020 06:37:00 PM EDT [facility] Name Value Range Interpretation Code Description Data Stephanie rce(s) Supporting Document(s) GLU 109 mg/dL 70-110 [facility] Patients taking Sulfasalazine may have f alsely depressedGlucose levels. Patients taking Sulfapyridine may havefalsely elevated Glucose levels. Patients should be drawnfor Glucose before the initial administration of eitherdrug. BUN 17 mg/dL 7-23 [facility] CRE 0.658 mg/dL 0.500-1.300 [facility] GFR > 60 mL/min [facility] CHLORIDE 111 mmol/L 99-110 [facility] NA 142 mmol/L 136-147 [facility] POTASSIUM 4.1 mmol/L 3.5-5.1 [facility] TCO2 26 mmol/L 20-33 [facility] ANION GAP 9.1 10.0-20.0 [facility] CA 8.9 mg/dL 8.3-10.7 [facility] ALKALINE PHOS 121 U/L 45-117 [facility] TP 7.5 g/dL 6.0-7.8 [facility] ALB 3.8 g/dL 3.5-5.0 [facility] ESRD Dialysis patient Albumin reference range: 2.9-4.4 g/dL GL 3.7 g/dL 2.3-3.5 [facility] A/G 1.0 1.0-2.5 [facility] T. BILIRUBIN 0.2 mg/dL 0.1-1.1 [facility] The Dimension [place] Total Bilirubin is n ot recommended forpatients undergoing treatment with eltrombopag (Promacta)due to the potential for falsely elevated results. ALTI 49 U/L 6-54 [facility] Patients taking Sulfasalazine and/or Sul fapyridine may havefalsely depressed ALT levels. Patients should be drawn forALT before the initial administration of either drug. AST 26 U/L 6-38 [facility] Patients taking Sulfasalazine and/or Sul fapyridine may havefalsely depressed AST levels. Patients should be drawn forAST before the initial administration of either drug. ID Date Data Source [id number] 10/29/2020 05:54:00 PM EDT [facility] Name Value Range Interpretation Code Description Data Stephanie rce(s) Supporting Document(s) WBC 7.63 x10E3/uL 4.0-10.5 [facility] RBC 4.24 x10E6/uL 4.20-5.40 [facility] Hemoglobin 12.8 g/dL 12.0-16.0 [facility] Hematocrit 37.6 % 37.0-47.0 [facility] MCV 88.7 fL 81.0-99.0 [facility] MCH 30.2 pg 27.0-31.0 [facility] MCHC 34.0 g/dL 32.7-35.6 [facility] RDW 12.3 % 11.5-14.0 [facility] Platelet count 211 x10E3/uL 150-450 [facility] ital MPV 9.6 fl 6.9-9.5 [facility] Neutrophils 57.8 % 34-64 [facility] Lymphocytes 32.9 % 25-45 [facility] Monocytes 7.2 % 1.7-10.6 [facility] Eosinophils 1.6 % 0.4-7.0 [facility] Basophils 0.1 % 0.1-2.0 [facility] Imm. Gran. 0.4 % 0.1-2.0 [facility] Abs. Neutro. 4.41 x10E3/uL 1.2-7.6 [facility] Abs. Lymph. 2.51 x10E3/uL 1.0-3.5 [facility] Abs. Kerr. 0.55 x10E3/uL 0.1-1.0 [facility] Abs. Eosin. 0.12 x10E3/uL 0.1-0.7 [facility] Abs. Baso. 0.01 x10E3/uL 0.0-0.1 [facility] Abs. Imm. Gran. 0.03 x10E3/uL 0.0-0.1 [facility] spital ANRBC% 0 % 0 [facility] ID Date Data Source [id number] 10/29/2020 06:28:00 PM EDT [facility] Name Value Range Interpretation Code Description Data Stephanie rce(s) Supporting Document(s) PCP VISTA NEG NEGATIVE [facility] MINIMUM LEVEL OF DETECTION IS 25 ng/ml BENZODIAZEPINES NEG NEGATIVE [facility] MINIMUM LEVEL OF DETECTION IS 200 ng/ml COCAINE VISTA NEG NEGATIVE [facility] MINIMUM LEVEL OF DETECTION IS 300 ng/ml AMPHETAMINES NEG NEGATIVE [facility] al MINIMUM LEVEL OF DETECTION IS 1000 ng/ml BARBITURATES NEG NEGATIVE [facility] CUTOFF CONCENTRATION IS 200 ng/ml CANNABINOIDS NEG NEGATIVE [facility] al CUTOFF CONCENTRATION IS 50 ng/ml METHADONE VISTA NEG NEGATIVE [facility] MINIMUM LEVEL OF DETECTION IS 300 ng/ml OPIATE VISTA NEG NEGATIVE [facility] MINIMUM DETECTION LEVEL IS 300 ng/ml ID Date Data Source [id number] 10/29/2020 05:57:00 PM EDT [facility] Name Value Range Interpretation Code Description Data Stephanie rce(s) Supporting Document(s) URINE COLOR Yellow [facility] UAPR Turbid [facility] UGLU Negative NEGATIVE [facility] URINE BILIRUBIN Negative NEGATIVE [facility] al UKET Negative NEGATIVE [facility] USG 1.024 1.010-1.025 [facility] UBLO Negative NEGATIVE [facility] UpH 7.0 5.0-8.0 [facility] UPRO Negative Negative [facility] UUB 1.0 mg/dL 0.2-1.0 [facility] UNIT Negative Negative [facility] ULEU Negative Negative [facility] ID Date Data Source [id number] 10/31/2020 10:31:00 AM EDT [facility] Physician DocumentationClLeticia Hinkle edical CenterName: Yareli DuvallAge: 20 yrsSex: FemaleDOB: 2000MRN: [id number] Date: 10/29/2020Time: 17:31Account#: [id number] MD:ED Physician Richie العليposition Summary:10/31/20 08:52Hospitalization OrderedHospitalization Status: Inpatient Admission seProvider: Bogdan Macias seLocation: Mental Health Unit seCondition: Stable seProblem: an acute exacerbation seSymptoms: have worsened seRoom Assignment: seDiagnosis- Major depressive disorder, recurrent, unspecified seAdditional Information- Admission Type: Inpatient Status. seForms:- Medication Reconciliation se- SBAR se- Medication Reconciliation Form - 2nd Copy seHPI:10/2018:29 This 20 yrs old White Female presents to ER via [facility] qv9ntea complaints of Psych Problem.19:29 Patient comes the ER today for mental health evaluation. Patient was nj7jxvv in the ER for mental health on [...] status: Patient states was never smoker oftobacco. ETOH status Denies use of ETOH.- Advance [...] vitals klpMDM:10/2018:22 Patient medically screened. th422:27 ECG:. 404:46 ED course: Patient exhibiting self-injurious behavior in the ER not ky5clnajfadpu to verbal de-escalation requiring chemical sedation. Averbal order was given for B-52 while I was busy with another issue.When I went to put the order in the computer, Haldol allergy poppedup however the medication was already given by the nurse. Patientclosely monitored for any evidence of allergic reaction..06:46 Data reviewed: vital signs, nurses notes, lab test result(s). ED xf0oaolei: Care is endorsed to Dr. العلي at [...] continued to note aggressive behavior and started ce9iqvdsm verbal threats to staff including threatening to elope andhurt members of staff. After initial mechanical restraints wereremained as the patient did not improve, she regressed to this pointof concerned so the restraints were once again required. Richelle meade Geodon 20 mg by IM this time with better effect, seen restingcomfortably on most recent assessment.10/2016:35 Order name: Acetaminophen Level; Complete Time: 19::35 Order name: CBC with diff; Complete Time: 19::35 Order name: CMP; Complete Time: 19:28 :35 Order name: ETOH; Complete Time: 19::35 Order name: Salicylate Level; Complete Time: 19::35 Order name: Serum HCG Qualitative; Complete Time: 19::35 Order name: Triage - Drug Screen; Complete Time: 19::35 Order name: UA; Complete Time: 19:28 :02 Order name: EKG in Patient's Room tp:26 Order name: COVID-19 PROF; Complete Time: 04::35 Order name: Diet - Mental Health Tray (call dietary); Complete Time: tlm2::35 Order name: Belongings List; Complete Time: 09:37 :35 Order name: Document Weight and Height for BMI; Complete Time: 09:37 :35 Order name: Mental Health Level 3; Complete Time: 09:37 :35 Order name: VS q shift; Complete Time: 21:08 :29 Order name: Medically Cleared for Eval by-Psychosocial, Cd Mixer Helper th4(.PSA); Complete Time: 20::02 Order name: EKG.; Complete Time: 22:08 :24 Order name: Mental Health Level 4; Complete Time: 09:2 9 :54 Order name: Restrain Patient; Complete Time: 21:54 bz1Ucwhibuvk Medications:10/2018:54 Drug: Seroquel - QUEtiapine 25 mg [quetiapine 25 mg tablet (1 tabs)] de2Lxfyw: PO;22:08 Follow up: Response: No adverse reaction :38 Drug: B52 IM - (LORazepam 2 mg, diphenhydrAMINE 50 mg, Haloperidol gd1Pzyhzwh 5 mg) Route: IM; Site: right vastus [...] diphenhydrAMINE 50 mg [diphenhydramine 50 mg/mL injection sx8dcdcmxwi (1 mL)] {Note: given for severe anxiety.} [...] 20 mg [ziprasidone 20 mg/mL (final concentration) je6sdwyklfeckilj solution (1 mL)] Route: IM; Site: right [...] Rhythm is regular, Normal Sinus Rhythm. QRS iv6Zslt is Normal. ME interval is normal. QRS interval is normal. QTinterval is normal. No Q waves. T waves are Normal. No ST changesnoted. Clinical impression: Normal ECG. Interpreted by me.Signatures:Dispatcher [employer] Елена Boogie RN RN klpMartin, Tisa, RN RN tlmElliott, Suzanne, MD MD seHowland, Todd, MD MD pk9FwuvfFortunato humphrey RN RN su9BfiqlxBreonna yu RN RN is8XjcptrrAnoop valenzuela MD MD dk2Dflavio, Stacy AMAYA gd4Guodxpgczwt: (The following items were deleted from the chart)10/2110:57 11:56 COVID-19 PROFILE+LAB ordered. UZWHSCXE47/2200:32 00:10 LORazepam 4 mg IM once ordered. dk2 dk2 Name Value Range Interpretation Code Description Data Stephanie rce(s) Supporting Document(s) ID Date Data Source [id number] 10/31/2020 10:31:00 AM EDT [facility] Nurse[facility]Cl[facility] terName: Yareli DuvallAge: 20 yrsSex: FemaleDOB: 2000MRN: [id number] Date: 10/29/2020Time: 17:31Account#: [id number] Willow SMITH:Diagnosis: Major depressive disorder, recurrent, unspecifiedPresentation:10/2016:31 Presenting complaint: Patient states: "suicidal thought with plan and tlmanxiety:". Coronavirus Screening: Have you been diagnosed withCOVID-19 in the past 30 days? no [facility] no Flu-like symptoms reported in the last 14 days: no.Have you had close contact with confirmed or suspected COVID-19 case?no Do you live in a setting where a large of amount of people live,such as intermediate, family care, nursing home, etc? no. Have you traveledto a location with widespread or ongoing COVID-19 community spread [facility]? no Have you traveled internationally or hadcontact with someone that has traveled and has been ill in the past 3weeks? no Have you received the COVID vaccine? No. CommunicationSpeaks Wallisian? Yes, is preferred language. Communicable DiseaseScreen: Negative [...] status: Patient states was never smoker oftobacco. ETOH status Denies use of ETOH.- Advance [...] that the patient found a paper clip zo1jelbnvsiis on a "window"- she would not give [...] reported that patient had been "digging and qi8hfysusrwkb herself" and despite constant redirection, MHW had tomanually hold wrists down to prevent her from doing this. She doeshave bilateral superficial scratches to her wrists w/o bleeding. N75ilvnxino ordered and given.05:26 Reassessment: creative services writer was called back to room by jimy- pt was still kr3pnamasagyf to dig at herself. She was verbally [...] room due to patient harming self by cx0gzeansghri self with her fingernails several attempts made to getpatient to stop, patient asked why she was doing this and she replied"because I'm depressed and anxious" patient offered medication tohelp with her severe anxiety and she accepted MD made aware ofsituation and order recieved..20:39 Reassessment: Patient continues to try to hurt self and report severe ch7gkoassq MD called to bedside to assess the situation and additionalmedications ordered..21:55 Reassessment: Despite all other interventions patient continues to jw5try to harm self MD notified and order received to place patient intorestraints at this time for safety.22:48 Reassessment: Patient appears in no apparent distress at this time. nj2Qplgytw released from restraints at 2245, patient reports [...] Report Not Completed. Intervention: Observation Level 3. [address] health consult is initiated at 20:30. Referral Information:Evaluation referral is generated by the patient himself / herself.The patient was referred for evaluation because expresses suici dalideations with the plan to hang her self or to overdose.20:57 Subjective: The patients chief complaint is Pt presents to the ED as sm8a walk in due to suicidal ideations. Pt was discharged from [facility] three hours before arriving to the [...] inpatient mental health.She has been admitted at [facility], [facility], and [facility].Pt has a history of Bipolar, Major Depressive, Anxiety. She statesthat she does not take her medications constantly which continuedwhile she was inpatient. Pt reports that [facility]. She will be seeing [facility] for a counselor andshe has not been yet up with a psychiatrist yet. Pt maintains SIwhile in the ED. Pt denies HI. Pt denies hallucinations. Pt does notpresent with any delusional thoughts. Delusions are denied,Hallucinations are denied. Patient's mood is depressed, Havingthoughts of suicide. Plan for suicide is to overdose or hang her self.21:03 Patient reports history of anxiety, Bipolar Disorder, Depression, dc5tamwiwq attempt: multiple by overdose Other: Borderline PersonalityDisorder. Mental Health Admissions: [facility]. [facility] and was [facility] today Current Outpatient MentalHealth Services: Therapist / Agency: [facility]. Living Environment:Family / Home Support: poor The patient currently lives with his /her significant other, Wilmar Duenas. The patient is single. Detox /Rehab Admissions: [...] patient status is not currently needed or ax8tmgiydvopci. Consultation: Psych MD informed of patient's status at21:00, ED MD notified of patients status at 21:17. Disposition:Medically cleared for disposition by Dr Argueta. Psychiatric Consultis performed by phone with Dr Macias The patient is to be transferredto bed available facility. Legal Status: Patient's legal status [facility]: 9.37. Commitment papers arecompleted. DSM-V DX [place] I diagnosis: Depression, Unspecified.Insurance Pre-Certification: Not Required. [facility] Admission Criteria:The patient is experiencing suicidal ideation. [...] referralhospital acceptance. The patient is not a family service center director or militarydependent. Mayes Suicide Severity Rating Scale: Suicidal IdeationRating 5; Intensity of Ideations Rating 25; Suicidal Behavior Rating1.10/2100:37 Narrative Pt was using her sheet and pillow case to wrap around her dy6lnxn. Blankets and pillow case were removed. Pt [...] left arm. She has been redirected multiple xs8uwhxf by PSA and sitter. Security is present. Pt is now currentlywaiting TV with both hands visible.03:58 Narrative Pt is laying down, watching TV. Sitter is present. Safety sm8is maintained.04:43 Narrative Pt started digging at her arm again. PSA and sitter had na6weagymqmg to redirect the pt with no success. Nurse and MD was madeaware. B52 was given. Pt has a keisha on her left wrist and a smallermark on her right wrist. Both have been looked at by nurse.19:21 Narrative PSA role handed off to this creative services writer at 1900. sm804/2201:04 Narrative Since shift change at 1930 pt has been digging herself, xs1alhepvfyzoi to leave, yelling and swearing, she has [...] Narrative PSA role handed off to this creative services writer at 7:30 AM. kf09:33 Disposition: The patient is admitted to [facility] Patient report is kfgiven to Dylan Ribeiro RN. Legal Status: Patient's legal status willbe Emergency: 9.39. Commitment papers are completed. PT has beenprovided with a copy of her legal status and rights.Psych:10/2017:02 Subjective: Patient's mood is euphoric, Delusions are denied, tlmHallucinations are denied Having thoughts of suicide. Plan forsuicide is to overdose on drugs, [facility] she reports she told them she didn't [...] Observation Level Level 4 Sitter needed. Provider lg0Ayjmzqof Nils Argueta MD Charge Nurse notified Breonna [...] armband on for positive identification. Placed in tlmgown. Bed in low position. Call light in reach.18:01 No Physician assisted procedures completed. Labs drawn. Collected by tlmlab. Urine collected. Clean catch specimen.19:13 No apparent distress. Psychosocial Cd Mixer Helper. tlm19:13 Sitter at bedside. tlm19:22 Nils Argueta MD is Attending Physician. th404/2108:18 Notified ED physician of other prescription benefit specialist pt vomited would like tlmsomething, new orders [...] العلي MD is Attending Physician. se08:52 Bogdan Macias MD is Hospitalizing Provider. se09:01 Appears agitated. Pt. is pacing. klp09:14 Notified ED physician of other pt's refusal of morning meds. no new klporders at present.Administered Medications:10/2018:54 Drug: Seroquel - QUEtiapine 25 mg [quetiapine 25 mg tablet (1 tabs)] ut3Hunie: PO;22:08 Follow up: Response: No adverse reaction tp204/2104:38 Drug: B52 IM - (LORazepam 2 mg, diphenhydrAMINE 50 mg, Haloperidol fd9Zazpang 5 mg) Route: IM; Site: right vastus [...] diphenhydrAMINE 50 mg [diphenhydramine 50 mg/mL injection lc3doahrzeo (1 mL)] {Note: given for severe anxiety.} [...] 20 mg [ziprasidone 20 mg/mL (final concentration) xn1ofvjaknrngppi solution (1 mL)] Route: IM; Site: right [...] Psych accompanied by tech, with chart, Other [facility] [employer] officers x 210:30 Condition: stable.10:30 Instructed on need for admit.10:30 Discharge Assessment: Patient awake, alert and oriented x 3. Nocognitive and/or functional deficits noted. Patient verbalizedunderstanding of disposition instructions. Patient angry andinitially uncooperative Patient has no functional deficits.10:31 Patient left the ED. klpSignatures:Елена Hugo, RN RN Magaly Christensen, RN RN Kylie Quinn MD MD seDow, Wendy, RN RN ll2BxryjfZakia Cortez, RN RN qi6FeudykrquZakia [place], PSA Nils Guajardo MD MD nm4EebanFortunato Mark, RN RN re0DjwtieBreonna Marie, RN RN ii1QbdouwvlUsha apple Derek MD ed1Ftnggmsyngz: (The following items were deleted from the [...] Patient reports history of anxiety, Bipolar Disorder, ba4Oqkkbublzc, suicide attempt: multiple by overdose Mental HealthAdmissions: multiple admissions. [facility] and was[facility] today Current Outpati ent Mental Health Services: Therapist/ Agency: [facility]. Living Environment: Family / Home Support:poor The patient currently lives with his / her significant other,Wilmar Duenas. The patient is single. Detox / Rehab [...] appears in no apparent distress at this yu1gunf. jw5 Name Value Range Interpretation Code Description Data Stephanie rce(s) Supporting Document(s) ID Date Data Source [id number] 10/28/2020 08:29:00 PM EDT [place], [place] [address]PATIENT NAME: YARELI HATCH#: [id number] PHYSICIAN: HUBER MEDINA #: [id number] ADM. DATE: 10/26/20PATIENT : 00 DISCH. DATE: [...] rce(s) Supporting Document(s) ID Date Data Source [id number] 10/28/2020 06:30:00 PM EDT [address] HEALTH PROGRESS NOTEPATIENT NAME: YARELI HATCH PHYSICIAN: BROOKLYN ONEILL MDAUTHOR: Surendra SMITH,P.ADM. DATE: 10/26/20 MR#: [id number] NOTE DATE: 10/28/20 RM#: [id number] TIME: 1830 , , female patient.CC/Hx Present IllnessPt states, "I was and I am feeling suicidal since last week". [facility] and [facility] herself to the ED for an evaluation.Events Since Last EntryPatient was seen today to assess her improvement. The patient denies any SI/HI.She talked about her friend in [place] with whom she wants to live withuntil residence [facility].Portions of this section were scribed by Shell Ariza on 10/28/20 at 1832ObjectiveVital SignsVital Signs-LastResult Date TimePulse Ox 98 10/28 1140B/P 122/83 10/28 1140Temp 97.5 10/28 1140Pulse 65 10/28 1140Resp 14 10/28 1140Current MedicationsMiscellaneous Read [id number] NAQuetiapine Fumarate (Seroquel) 25 MG 2000 POChlorpromazine [...] will be discharged tomorrow with services in [place].Portions of this section were scribed by Shell Ariza on 10/28/20 at 1830DATE SIGNED: 10/28/20 Electronically SignedTIME SIGNED: 1831 BROOKLYN ONEILL MD Name Value Range Interpretation Code Description Data Stephanie rce(s) Supporting Document(s) ID Date Data Source [id number] 10/28/2020 05:10:00 PM EDT [facility] [address] DISCHARGE SUMMARYPATIENT NAME: YARELI HATCH MR#: [id number] PHYSICIAN: BROOKLYN ONEILL MDAUTHOR: Surendra SMITH,P. DATE: 10/26/20 #: [id number] DATE:OjenqrzJdpqvzzbwwmjbl79-gcgy-ruf, , female patient.Chief ComplaintPt states, "I was and I am feeling suicidal since last week". [facility] so she came [facility] with a friend and walked herself to the ED for an evaluation.Reason for AdmissionIncreased depression and feeling suicidal. SIB, by scratching forearms with apencil when in-patient at [facility] in Aug.History of Presenting IllnessMicadrienne is friendly, polite and cooperative today. Reports she feels saferwhen she is here in-patient. [facility] She didn't f/u with her out-patient services and didn'tpick up her prescribed meds from the pharmacy. She reports she notices nodifference on or off her medications.Portions of this section were scribed by Shell Ariza on 10/28/20 at 1710Rust Psych/Medical HistoryPsychiatric HistoryLong history with diagnosis of bipolar disorder, Schizoaffective disorder, andcluster B personality disorder. The patient has a history of overdosing andhistory of poor impulse control with aggression. The patient has the criteriafor borderline personality.Medical HistoryDeniesDrugs/Alcohol/Tobacco HistoryDeniesHome MedicationsSee Home Med ication ListAllergiesCoded Allergies:haloperidol (From HALDOL) (06/15/20)risperidone (08/04/19)Family HistoryFamily history of mental health and substance use.Social HistoryHas been staying with a friend in [place] that she met while in the [facility].Abuse HistoryAdmits but doesn't discuss today.Legal HistoryCharged for disorderly conduct and harrassement but hasn't been to court yet.This involved staff during a restraint at [facility].Portions of this section were scribed by Shell Ariza on 10/28/20 at 1710[facility] CourseHospital ScottI saw her on Wednesday and then today. She talked about her multiple overdosesand that [facility] did not want to hospitalize her. So, she decided to pick upa cab and showed up to our ER. [...] her. Shestates she has a friend in [place] and then wait until residence in [facility] up.Portions of this section were scribed by Shell Ariza on 10/28/20 at 1803DATE SIGNED: 10/28/20 Electronically SignedTIME SIGNED: 1808 BROOKLYN ONEILL MD Name Value Range Interpretation Code Description Data Stephanie rce(s) Supporting Document(s) ID Date Data Source [id number] 10/27/2020 10:23:00 AM EDT [address] PSYCHIATRIC ASSESSMENTPATIENT NAME: YARELI HATCH MR#: [id number] PHYSICIAN: BROOKLYN ONEILL MDAUTHOR: Frantz Win DATE: 10/26/20 RM#: [id number], , female patient.Chief ComplaintPt states, "I was and I am feeling suicidal since last week". [facility] so she came to [place] tosta with a friend and walked herself to the ED for an evaluation.Reason for AdmissionIncreased depression and feeling suicidal. SIB, by scratching forearms with apencil when in-patient at [facility] in Aug.History of Presenting IllnessYareli is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 HRS06/15528 24Temp 98.2 97.7Pulse 68 67Resp 20 17B/P 104/75 114/76B/P MeanPulse Ox 95 100O2 DeliveryO2 Flow UrojZwD3Xyltdprg ExaminationGeneral Appearance no acute distress, afebrile, alertHead atraumatic, normocephalicENT normal right ear, normal left ear, normal noseNeck no bruit, no JVD, no lym phadenopathyCardiovascular regular rate, no murmurRespiratory clear to auscultation, no distressAbdomen soft, no distentionExtremities no clubbing, no cyanosisAssessment/PlanDiagnosis/Problem1. Major depressive disorderStatus AcuteA&Pcontinu with psychiatry.CQM VTE HISTORYVTE HISTORYPrior VTE? NoADDENDUM: Emerita Hall on 06/16/20 at [age] yo female admitted for SI. She had recently been living in a community hospital as arranged by this facility. She signed herself out and broughtherself in to this facility. Denies PMH, PSH. Unknown age of parents, she grewup in the foster care system.Affect is restricted and speech is pressured. exam/history is limited due topatient's mental health status.DATE SIGNED: 06/16/20 Electronically SignedTIME SIGNED: 1725 EMERITA PARHAM SUSHANT Name Value Range Interpretation Code Description Data Stephanie rce(s) Supporting Document(s) ID Date Data Source [id number] 06/15/2020 11:12:[address] [id number] NAME: YARELI HATCH#: [id number] PHYSICIAN: FILI CANELA MD ADM. DATE: 06/15/20ACCOUNT #: [id number] .#: [id number] ASSESSMENTIDENTIFICATION: A 19-year-old female with mood disorder, schizoaffectivedisorder, and cluster B personality disorder.CHIEF COMPLAINT: "I was upset."REASON FOR ADMISSION: Vague suicidal ideation.HISTORY OF PRESENT ILLNESS: [facility] and started thinking about dying. Thepatient stated that she called for help, that she needed to be in theEmergency for suicidal ideations; however, in Emergency the patient statedthat she is not suicidal. She became homeless after she [facility].The patient stated that she wants to go back there, but at this point, shedoes not know if she is welcome back. During this first interview, thepatient stated that she attempted to commit suicide a couple of days agotrying to strangle herself with a shirt. [facility] and she wasdischarged. Even though the patient [...] back to the Crisis Center or to [facility].Date Dictated: 06/15/2020 10:12:06Date Transcribed: 06/15/2020 10:12:35JV/GBJob #: [id number]: 06/15/20 1012 Electronically SignedTRANS:06/15/20 1112 FILI CANELA MDTRANS BY:IATDAALMA SIGNED:06/16/20REPORT COPY TO: Name Value Range Interpretation Code Description Data Stephanie rce(s) Supporting Document(s) ID Date Data Source [id number] 06/15/2020 02:49:00 AM EST [facility] Name Value Range Interpretation Code Description Data Stephanie rce(s) Supporting Document(s) SALICYLATE < 1.7 mg/dL 0.0-20.0 [facility] ID Date Data Source [id number] 06/15/2020 02:49:00 AM EST [facility] Name Value Range Interpretation Code Description Data Stephanie rce(s) Supporting Document(s) ACETAMINOPHEN < 2.0 ug/mL 0-30 [facility] ID Date Data Source [id number] 06/15/2020 02:49:00 AM EST [facility] Name Value Range Interpretation Code Description Data Stephanie rce(s) Supporting Document(s) ETOH 0.006 g/dL NONE DETECTED [facility] ID Date Data Source [id number] 06/15/2020 02:49:00 AM EST [facility] Name Value Range Interpretation Code Description Data Stephanie rce(s) Supporting Document(s) GLU 82 mg/dL 70-110 [facility] Patients taking Sulfasalazine may have f alsely depressedGlucose levels. Patients taking Sulfapyridine may havefalsely elevated Glucose levels. Patients should be drawnfor Glucose before the initial administration of eitherdrug. BUN 18 mg/dL 7-23 [facility] CRE 0.674 mg/dL 0.500-1.300 [facility] CHLORIDE 111 mmol/L 99-110 [facility] NA 141 mmol/L 136-147 [facility] POTASSIUM 4.1 mmol/L 3.5-5.1 [facility] TCO2 24 mmol/L 20-33 [facility] ANION GAP 10.1 10.0-20.0 [facility] CA 9.0 mg/dL 8.3-10.7 [facility] ALKALINE PHOS 124 U/L 82-169 [facility] TP 7.6 g/dL 6.0-7.8 [facility] ALB 4.0 g/dL 3.5-5.0 [facility] ESRD Dialysis patient Albumin reference range: 2.9-4.4 g/dL GL 3.6 g/dL 2.3-3.5 [facility] A/G 1.1 1.0-2.5 [facility] T. BILIRUBIN 0.3 mg/dL 0.1-1.1 [facility] The Dimension [place] Total Bilirubin is n ot recommended forpatients undergoing treatment with eltrombopag (Promacta)due to the potential for falsely elevated results. ALTI 55 U/L 6-54 [facility] Patients taking Sulfasalazine and/or Sul fapyridine may havefalsely depressed ALT levels. Patients should be drawn forALT before the initial administration of either drug. AST 27 U/L 6-38 [facility] Patients taking Sulfasalazine and/or Sul fapyridine may havefalsely depressed AST levels. Patients should be drawn forAST before the initial administration of either drug. ID Date Data Source [id number] 06/15/2020 02:32:00 AM EST [facility] Name Value Range Interpretation Code Description Data Stephanie rce(s) Supporting Document(s) WBC 7.41 x10E3/uL 4.0-10.5 [facility] RBC 4.25 x10E6/uL 4.20-5.40 [facility] Hemoglobin 12.2 g/dL 12.0-16.0 [facility] Hematocrit 38.0 % 37.0-47.0 [facility] MCV 89.4 fL 81.0-99.0 [facility] MCH 28.7 pg 27.0-31.0 [facility] MCHC 32.1 g/dL 32.7-35.6 [facility] RDW 12.8 % 11.5-14.0 [facility] Platelet count 249 x10E3/uL 150-450 N [facility] ital MPV 9.9 fl 6.9-9.5 H [facility] Neutrophils 48.3 % 34-64 [facility] Lymphocytes 43.2 % 25-45 [facility] Monocytes 6.3 % 1.7-10.6 [facility] Eosinophils 1.5 % 0.4-7.0 [facility] Basophils 0.3 % 0.1-2.0 [facility] Imm. Gran. 0.4 % 0.1-2.0 [facility] Abs. Neutro. 3.58 x10E3/uL 1.2-7.6 [facility] Abs. Lymph. 3.20 x10E3/uL 1.0-3.5 [facility] Abs. Kerr. 0.47 x10E3/uL 0.1-1.0 [facility] Abs. Eosin. 0.11 x10E3/uL 0.1-0.7 [facility] Abs. Baso. 0.02 x10E3/uL 0.0-0.1 [facility] Abs. Imm. Gran. 0.03 x10E3/uL 0.0-0.1 [facility] spital ANRBC% 0 % 0 [facility] ID Date Data Source [id number] 06/15/2020 02:56:00 AM EST [facility] Name Value Range Interpretation Code Description Data Stephanie rce(s) Supporting Document(s) PCP VISTA NEG NEGATIVE [facility] MINIMUM LEVEL OF DETECTION IS 25 ng/ml BENZODIAZEPINES POS NEGATIVE [facility] POSITIVE RESULTS UNCOMFIRMEDMINIMUM LEVE L OF DETECTION IS 200 ng/ml COCAINE VISTA NEG NEGATIVE [facility] MINIMUM LEVEL OF DETECTION IS 300 ng/ml AMPHETAMINES NEG NEGATIVE [facility] MINIMUM LEVEL OF DETECTION IS 1000 ng/ml BARBITURATES NEG NEGATIVE [facility] CUTOFF CONCENTRATION IS 200 ng/ml CANNABINOIDS NEG NEGATIVE [facility] CUTOFF CONCENTRATION IS 50 ng/ml METHADONE VISTA NEG NEGATIVE [facility] MINIMUM LEVEL OF DETECTION IS 300 ng/ml OPIATE VISTA NEG NEGATIVE [facility] MINIMUM DETECTION LEVEL IS 300 ng/ml ID Date Data Source [id number] 06/15/2020 02:40:00 AM EST [facility] Name Value Range Interpretation Code Description Data Stephanie rce(s) Supporting Document(s) HCG QUAL URINE Negative Negative [facility] l ID Date Data Source [id number] 06/15/2020 02:40:00 AM EST [facility] Name Value Range Interpretation Code Description Data Stephanie rce(s) Supporting Document(s) URINE COLOR Yellow [facility] UAPR Cloudy [facility] UGLU Negative NEGATIVE [facility] URINE BILIRUBIN Negative [facility]GATIVE [facility] UKET Negative NEGATIVE [facility] USG 1.022 1.010-1.025 [facility] UBLO Negative NEGATIVE [facility] UpH 7.0 5.0-8.0 [facility] UPRO Negative Negative [facility] UUB 1.0 mg/dL 0.2-1.0 [facility] UNIT Negative Negative [facility] ULEU Trace Negative [facility] ID Date Data Source [id number] 06/15/2020 02:40:00 AM EST [facility] Name Value Range Interpretation Code Description Data Stephanie rce(s) Supporting Document(s) URINE RBC 0-2 RBCs/HPF NONE SEEN [facility] URINE WBC 0-2 WBCs/HPF NONE SEEN [facility] URINE BACTERIA Few NONE SEEN [facility] l URINE EPI. Few NONE SEEN [facility] URINE CRYSTAL MODERATE AMORPHOUS NONE SEEN [facility] ID Date Data Source [id number] 06/15/2020 05:47:00 AM EST [facility] Physician DocumentationClaxlexy-Naveen M edical CenterName: Yareli AdamelAge: 19 yrsSex: FemaleDOB: 2000MRN: [id number] Date: 06/15/2020Time: 01:36Account#: [id number] 3Polga MD: NONE, - Per PatientED Physician Esteban Argueta Summary:06/15/20 04:14Hospitalization OrderedHospitalization Status: Inpatient Admission ds9Oqimdchq: Fili Canela oa9Wedpqlzn: Mental Health Unit kf2Voyvspyhy: Stable ak3Bbnpsyk: an ongoing problem ft3Varpmjat: are unchanged cy0Ykkg Assignment: fj9Ernlgqfwd- Bipolar disorder, unspecified li6Qinulslvzw Information- Admission Type: Inpatient Status. cm1Ehlaz:- Medication Reconciliation th4- SBAR th4- Medication Reconciliation Form - 2nd Copy th4HPI:06/502:07 This 19 yrs old White Female presents to ER via Police with qz4nojowuqcue of Psych Problem.02:07 Patient is brought in by police on a pickup order for mental health om6eqvdqvepwz. Patient reports she is suicidal with a plan to eitherstrangle herself or overdose. She has attempted suicide in the pastby overdosing. Patient reports that she is currently homeless. Deniesany homicidal ideation or hallucinations. She does feel depressed andanxious. She was last in the ER for mental health evaluation onAugust 6 and was admitted at that time. She has not been taking hermedicines on a regular basis. She denies any other problems or anyother complaints..LEGAL LIBRARIAN:01:48 LMP 06/08/2020 wq0Jfekswyrky:- Allergies: Haldol; RISPERIDONE;- Home Meds:1. hydroxyzine pamoate [...] Smoking status: Patient states was never smoker [facility]. Patient/guardian denies using street drugs, IV drugs, [...] signs, nurses notes, lab test result(s). ED te4zgfdbv: Patient remained stable in the ER. Patient here for mentalhealth evaluation as above. Patient was seen and evaluated by PSA andpresented to the psychiatrist. Patient will be admitted for furtherevaluation and treatment. See PSA note. Patient has remainedcooperative..06/501:52 Order name: Acetaminophen Level; Complete Time: 02::52 Order name: CBC with diff; Complete Time: 02::52 Order name: CMP; Complete Time: 02:51 5108/500:52 Order name: ETOH; Complete Time: 02::52 Order name: Glucose 5108/500:52 Order name: Salicylate Level; Complete Time: 02:51 5108/500:52 Order name: Triage - Drug Screen; Complete Time: 03:04 5108/500:52 Order name: UA; Complete Time: 02:51 5108/500:52 Order name: Urine HCG Qualitative; Complete Time: 02:51 511:52 Order name: Diet - Mental Health Tray (call dietary); Complete Time: jw505:4411:52 Order name: Belongings List; Complete Time: 05:44 5108/500:52 Order name: Document Weight and Height for BMI; Complete Time: 05:44 jw511:52 Order name: Mental Health Evaluation; Complete Time: 05:44 5108/500:52 Order name: Mental Health Level 3; Complete Time: 05:44 :52 Order name: VS q shift; Complete Time: 05:44 :51 Order name: Medically Cleared for Eval by-Psychosocial, Cd Mixer Helper th4(.PSA); Complete Time: 03:11Dispensed Medications:No medications were administeredSignatures:Dispatcher [employer] Nils Hicks MD MD sy6WnfheFortunato humphrey RN RN jw5 Name Value Range Interpretation Code Description Data Stephanie rce(s) Supporting Document(s) ID Date Data Source [id number] 06/15/2020 05:47:00 AM EST [facility] Nurse's NotesClaxGowanda State Hospital Medical Tootie terName: Yareli AdamelAge: 19 yrsSex: FemaleDOB: 2000MRN: [id number] Date: 06/15/2020Time: 01:36Account#: [id number] 3Polga SMITH: NONE, - Per PatientDiagnosis: Bipolar disorder, unspecifiedPresentation:06/501:37 Presenting complaint: Patient brought in by [facility] officer Anatoly on a rz1gyyo up order for mental health evaluation. Patient reports feelingsuicidal with a plan to strangle self or overdose on medicationdepressed and being homeless. Coronavirus Screening: Have youtraveled internationally or had contact with someone that hastraveled and has been ill in the past 3 weeks? no Have you traveledto a location with widespread or ongoing COVID-19 community spread [facility]? no Flu-like symptoms reported in the last [...] Arrival: Police jw501:40 Acuity Assignment: Triage 2 ir8Vxubvt Assessment:01:47 General: Appears in no apparent distress, Behavior is cooperative. vj1Emtykc Screening: (1)Signs/symptoms infection Sepsis is notsuspected. Pain: [...] aware ofpositive screen, suicide precautions implemented. ESS-6 ordered.LEGAL LIBRARIAN:01:48 LMP 06/08/2020 ug4Ylcteiqkrg:- Allergies: Haldol; RISPERIDONE;- Home Meds:1. hydroxyzine pamoate [...] threats or abuse. Denies injuries from another. cn6Wpwnakdjako screening: No deficits noted. Offer of HIV testing:patient was previously offered screening. Fall Risk None identified.Assessment:05:43 Reassessment: see triage assessment. kg0Jddaelgefzdx:02:54 Intervention: Observation Level 3. Mental health consult is initiated grat 02:54.03:13 Referral Information: Evaluation referral is generated by a police gragency: SEL[place]. The patient was referred for evaluation because [facility] sinceyesterday afternoon. She reports [...] and off'. Pt grreports going to the [place] crisis center multiple times recently. Ptwas there [...] family since coming out as transgendered also eh8741. Pt has an extensive psychiatric hx with multipleh ospitalizations throughout childhood, adolescence, and adulthood. Ptwas recently inpatient on [facility] from February to May 2020. Ptwas discharged on 05/15/20 to supportive housing in [place]. Pt reportsgoing to the crisis center almost [...] a young age. [facility].Current Outpatient Mental Health Services: Psychiatrist / Agency:[facility] [place]. Therapist / Agency: Hilda/ Мария. Living Environment: Family / Home Support: Poor. Ptreports no contact with adoptive family. Has minimal contact withbiological parents; states "they don't accept me". The patientcurrently lives "homeless". Had been in supportive housing/ communityresidence in [place].03:24 Patient presents to Emergency Department with the [...] not currently needed or grappropriate. Consultation: Psych informed of patient's status at04:00, ED MD notified of patients status at 04:05, Mental Health ERRN made aware of pt status at 04:00. Disposition: Medically clearedfor disposition by Dr Argueta. Psychiatric Consult is performed byphone with Dr Canela. The patient is admitted to [facility] Patientreport is given to Malu Bowman RN. Legal Status: Patient's legalstatus will be Emergency: 9.39. Commitment papers are completed. Pthas been provided with a copy of legal status and rights.04:09 DSM-V DX [place] I diagnosis: Bipolar D/O, Unspecified. gr04:09 Insurance Pre-Certification: Not Required. [facility] Admission Criteria: grThe patient is experiencing suicidal [...] psychoactivemedications or significant dosage adjustments. [facility] Transition of care to Pt will be transferred to [facility] by [facility] andsecurity. The patient is not a family service center director or dependent.Mayes Suicide Severity Rating Scale: Suicidal Ideation Rating 5;Intensity of Ideations Rating 25; Suicidal Behavior Rating 1.Psych:01:51 Subjective: Patient's mood is sad, hopeless, Delusions are denied, mu8Ufknhkmcuppnhj are denied Having thoughts of suicide. Plan forsuicide is to strangle self or overdose on medications. Objective:Patient is cooperative, Speech is normal, Affect is appropriate,Patient has mutilated themselves by superficial cuts to left arm.02:04 Interventions: Removed personal items and placed in bag. Patient ut0udoijw in hospital gown. Searched person for dangerous [...] MD is Attending Physician. th402:03 Fortunato Mark, JOSE LUIS is Primary Nurse. jw504:13 Fili Canela MD is Hospitalizing Provider. th405:43 No Physician assisted procedures completed. jw505:43 Patient has correct armband on for positive identification. Placed in wm4gcji. Bed in low position. Sitter at bedside.Administered Medications:No medications were administeredOutcome:04:14 Decision to Hospitalize by Provider. th405:25 Disposition: Admitted to Psych cm405:25 Condition: stable.05:25 Instructed on need for admit.05:25 Discharge Assessment: Patient verbalized understanding of dispositioninstructions. Patient has no functional deficits.05:47 Patient left the ED. sx7Xmtgfujmdv:Rose Paulino, PSA PSA Nils Berrios MD MD ma3UwkzgFortunato humphrey RN RN bu6HdlftowpdWendy Severino RN RN cm4 Name Value Range Interpretation Code Description Data Stephanie rce(s) Supporting Document(s) ID Date Data Source [id number] 05/16/2020 01:20:[facility] [address] DISCHARGE SUMMARYPATIENT NAME: YARELI HATCH MR#: [id number] PHYSICIAN: BOGDAN MACIAS MDAUTHOR: Colleen SMITH,Bogdan DATE: 02/15/20 #: [id number] DATE:HistoryIdentificationPatient is 19-year-old female, currently single, lives in a motel,past psych history of bipolar disorderChief ComplaintThe patient was referred for evaluation because pt having suicidal ideations.History of Presenting IllnessInformation from emergency room,The patients chief complaint is [facility] a walk in for suicidal ideations with the plan to eitheroverdose or jump in traffic. Pt has been staying in a hotel in [place] aftersigning her self out of [facility] in November of 2019. Pt reports she called a cab herselfto bring her here. Pt states she was inpatient at [facility] for a month and wasdischarged yesterday. [...] is allergic to Haldol but thedoctor in [facility] had put her on the medication any ways. Pt reports ahistory of bipolar, borderline personality disorder, and gender identitydisorder. Pt has a history of inpatient [facility] at [facility], [facility] Pt was last inpatient to [facility] 12/02/2019. Pt reports when recently hada suicide attempt a few days after being dicharged from [facility] last, she statedshe had overdosed on [...] arrangement as she moved out from the [facility] andwanting to stay with her friend for the [...] out regarding staying in a motelin the [place] area as she signed herself out from [facility] on November 2019. Patientstated that she [...] well. Onepoint patient was also referred to [facility] and she was rejected by them due toexpressing that they think that the patient has a more behavioral issues andwould not be benefited with inpatient mental health treatment. Later onpatient was staying on the unit as we were waiting for a safe place fordischarge and referral being sent to different places such as [facility]. Later on patient [...] forward to fill out some paperwork at [facility] as well. She alsoappreciated the service [...] the following new medications:Loratadine* (Claritin*) 10 MG [id number] MILLIGRAM Orally DAILYQty = 14Refills = 1TOPIRAMATE (TOPAMAX) 25 MG [id number] MILLIGRAM Orally TWICE DAILYQty = 20Refills = 1Fluoxetine* (Prozac*) 20 MG [id number] MILLIGRAM Orally DAILYQty = 20Refills = 1HydrOXYzine (Atarax*) 50 MG [id number] MILLIGRAM Orally TWICE DAILY as needed for AnxietyQty = 20Refills = 1ARIPIPRAZOLE (ABILIFY MAINTENA) 400 MG SUSER.JCQC067 MILLIGRAM Intramuscularly N20QBnp = 1No RefillsInstruction s:Last IM injection received on May 03, 2020Discharge Activity: As toleratedDischarge diet: Low Fat/Low CholesterolFollow-upFollow up with your Primary care physicianFollow-up with therapist and psychiatrist as recommendedAlso recommended outpatient chemical dependencyReferralsOrdered ReferralsOphthalmology 07/23/20[facility] ([phone])located at [address] in [place] July 23 at 11:30 am.Internal Medicine 06/03/20In person primary care appointment [facility] ([phone]) located at [address] in [place] on June 03 at 2:00 pm with [facility] [place] [address] In person appointment at [facility] ([phone]) locatedat [address] [place] [address] on May 23 at 2:00 pm with Hilda.Yareli will need to attend thisappointment in order to receive herAbilify Maintenna injection on 05/31.[facility] [place] [address] In person appointment at [facility] ([phone])located at [address] [place] [address] onMay 29 at 11:00 amwith Karen. Yareli will need to attendthis appointment in order to receive herAbilify Maintenna injection on 05/31.DATE SIGNED: 05/16/20 Electronically SignedTIME SIGNED: 1326 BOGDAN MACIAS MD Name Value Range Interpretation Code Description Data Stephanie rce(s) Supporting Document(s) ID Date Data Source [id number] 05/16/2020 09:41:[address] [id number] NAME: DAMARIS,YARELIZOIE Jensen#: [id number] PHYSICIAN: BOGDAN MACIAS MDAOUNT #: [id number] ADM. DATE: 02/15/20PATIENT : 00 DISCH. DATE: [50}DISCHARGE SUMMARYMHU discharge planNicotine Replacement TherapySmoking Status Never smokerPrescribed at discharge Rx [facility]/Drug DisorderAlcohol or Drug Disorder counseling prescribedPersonal Care InstructionsDischarge Activity: As toleratedDischarge diet: Low Fat/Low CholesterolFollow Up CareFollow Up:Follow up with your Primary care physicianFollow-up with therapist and psychiatrist as recommendedAlso recommended outpatient chemical dependencyPriority ItemsUrgent/Important items t hat need to be addressed at primary care follow-upappointmentDischarge InformationDISCHARGE INFORMATION* Thank you for choosing [facility] and allowing us toserve you* Our Goal is to provide the highest quality of care.* This discharge information is to help you better understand your diagnosisand medication* Avoid taking weah-lhe-ucvwaqb medicines unless approved by your physician.* Take your medications as prescribed. DO NOT stop any medications unlessapproved first* Weigh yourself daily. Report any gain of 5 lbs in a week* 24 Hour Crisis HOTLINE available: Call Reachout at * Chem. Dependency: Walk in Clinics [place] ([phone]) and [place] ([phone]) anytime Wednesday thru Wednesday 8 to 10am. [place] ([phone]) anytimeWednesday thru Wednesday 8 to 10am. [place] ([phone]) Wednesday or Wednesday from 8to 10am (Bring $30 to [facility]) SMOKIN G CESSATION* Smoking is dangerous to your health. It delays the healing process, andworks against your medications. Not smoking will improve your health* Our hospital participates with the Opt-to-Quit program. You will be contactedafter discharge by the [facility] Smoker's Quitline for support with tobaccocessation. You have the option once contacted to refuse this service.* You can also go online to www.[employer]. Free nicotine replacementsare available ___Attention* You should [...] completed NoEND ENDDICT: 05/16/20940 Electronically SignedTRANS:05/16/20940 BOGDAN MACIAS MDTRANS BY:DATE SIGNED:05/16/20TIME SIGNED: 941REPORT COPY TO: Name Value Range Interpretation Code Description Data Stephanie rce(s) Supporting Document(s) ID Date Data Source [id number] 05/15/2020 01:17:[address] HEALTH PROGRESS NOTEPATIENT NAME: YARELI HATCH PHYSICIAN: BOGDAN MACIAS MDAUTHOR: Colleen SMITH,DhruvADM. DATE: 02/15/20 MR#: [id number] NOTE DATE: 05/15/20 RM#: [id number] TIME: 1319 [...] SIGNED: 05/15/20 Electronically SignedTIME SIGNED: 1319 BOGDAN MACIAS MD Name Value Range Interpretation Code Description Data Stephanie rce(s) Supporting Document(s) ID Date Data Source [id number] 05/14/2020 11:49:00 AM [facility] [place] [address]AL HEALTH PROGRESS NOTEPATIENT NAME: YARELI HATCH PHYSICIAN: BOGDAN MACIAS MDAUTHOR: Colleen SMITH,DhdaphnievAPUJA. DATE: 02/15/20 MR#: [id number] NOTE DATE: 05/14/20 #: 317EVALUATION TIME: 1151 is 19-year-old female, currently single, lives in a motel,past psych history of bipolar disorderCC/Hx Present IllnessThe patient was referred for evaluation because pt having suicidal ideations.Events Since Last EntryPatient reporting feeling somewhat better, she is mostly focused on herdischarge plan and she is about to be discharged this prior to going to [facility]. Patient denied having any suicidal, homicidal [...] SIGNED: 05/14/20 Electronically SignedTIME SIGNED: 1151 BOGDAN MACIAS MD Name Value Range Interpretation Code Description Data Stephanie rce(s) Supporting Document(s) ID Date Data Source [id number] 05/13/2020 01:19:[address] HEALTH PROGRESS NOTEPATIENT NAME: YARELI HATCH PHYSICIAN: BOGDAN MACIAS MDAUTHOR: Colleen SMITH,DhruvADM. DATE: 02/15/20 MR#: [id number] NOTE DATE: 05/13/20 RM#: [id number] TIME: 1322 [...] QHSPRN PRN POExaminationMusculoskeletalGait normalStation normalResultsLaboratory DataRecent Labs-24 [id number]-09 (CORDELL) PendingResults Ordered/ReviewedLab Tests reviewedAssessment/PlanDiagnosis1. Major depressive disorderStatus Acute2. Bipolar affective disorder3. Borderline personality disor derCoordination of care provided with nursing staff, treatment team, social work,physician's, familyRisk/benefits discussed side effectsJustification for continued stay danger to self/othersDATE SIGNED: 05/13/20 Electronically SignedTIME SIGNED: 1322 BOGDAN MACIAS MD Name Value Range Interpretation Code Description Data Stephanie rce(s) Supporting Document(s) ID Date Data Source [id number] 05/13/2020 11:14:00 AM EST [facility] Name Value Range Interpretation Code Description Data Stephanie rce(s) Supporting Document(s) SARS coronavirus 2 RNA [facility] This lab was ordered by [place] and reported by [facility]. ID Date Data Source [id number] 05/14/2020 04:07:00 PM EST [facility] Performed at: RN - [facility] [address] [id number] Director: Samira Cortez MD, Phone: [phone] Name Value Range Interpretation Code Description Data Stephanie rce(s) Supporting Document(s) SARS-CoV-2, CORDELL Not Detected Not Detected [facility] This nucleic acid amplification test was developed [...] SARS-CoV-2 virusand/or diagnosis of COVID-19 infection under mitvuyp133(b)(1) of the Act, 21 U.S.C. 360bbb-3(b) (1), [...] Acid Amplification (CORDELL) ID Date Data Source [id number] 05/10/2020 11:10:00 AM EDT [facility] [address] HEALTH PROGRESS NOTEPATIENT NAME: YARELI HATCH PHYSICIAN: BOGDAN MACIAS, MDAUTHOR: Colleen SMITH,DhruvAPUJA. DATE: 02/15/20 MR#: [id number] NOTE DATE: 05/10/20 RM#: [id number] TIME: 1113 [...] QHSPRN PRN POExaminationMusculoskeletalGait normalStation normalResultsLaboratory DataRecent Labs-24 hours10/734097XuoswmbpuFkzsml (136 - 147 mmol/L) 141Potassium (3.5 - [...] SIGNED: 05/10/20 Electronically SignedTIME SIGNED: 1112 BOGDAN MACIAS MD Name Value Range Interpretation Code Description Data Stephanie e(s) Supporting Document(s) ID Date Data Source [id number] 05/09/2020 05:28:00 PM EDT [facility] Name Value Range Interpretation Code Description Data Stephanie rce(s) Supporting Document(s) GLU 80 mg/dL 70-110 [facility] Patients taking Sulfasalazine may have f alsely depressedGlucose levels. Patients taking Sulfapyridine may havefalsely elevated Glucose levels. Patients should be drawnfor Glucose before the initial administration of eitherdrug. BUN 12 mg/dL 7-23 [facility] CRE 0.502 mg/dL 0.500-1.300 [facility] CHLORIDE 109 mmol/L 99-110 [facility] NA 141 mmol/L 136-147 [facility] POTASSIUM 4.5 mmol/L 3.5-5.1 [facility] TCO2 26 mmol/L 20-33 [facility] ANION GAP 10.5 10.0-20.0 [facility] CA 9.1 mg/dL 8.3-10.7 [facility] ALKALINE PHOS 142 U/L 82-169 [facility] TP 7.7 g/dL 6.0-7.8 [facility] ALB 4.0 g/dL 3.5-5.0 [facility] ESRD Dialysis patient Albumin reference range: 2.9-4.4 g/dL GL 3.7 g/dL 2.3-3.5 [facility] A/G 1.1 1.0-2.5 [facility] T. BILIRUBIN 0.4 mg/dL 0.1-1.1 [facility] The Dimension [place] Total Bilirubin is n ot recommended forpatients undergoing treatment with eltrombopag (Promacta)due to the potential for falsely elevated results. ALTI 57 U/L 6-54 [facility] Patients taking Sulfasalazine and/or Sul fapyridine may havefalsely depressed ALT levels. Patients should be drawn forALT before the initial administration of either drug. AST 30 U/L 6-38 [facility] Patients taking Sulfasalazine and/or Sul fapyridine may havefalsely depressed AST levels. Patients should be drawn forAST before the initial administration of either drug. ID Date Data Source [id number] 05/09/2020 05:00:00 PM EDT [facility] Name Value Range Interpretation Code Description Data Stephanie rce(s) Supporting Document(s) WBC 7.62 x10E3/uL 4.0-10.5 [facility] RBC 4.40 x10E6/uL 4.20-5.40 [facility] Hemoglobin 12.7 g/dL 12.0-16.0 [facility] Hematocrit 38.7 % 37.0-47.0 [facility] MCV 88.0 fL 81.0-99.0 [facility] MCH 28.9 pg 27.0-31.0 [facility] MCHC 32.8 g/dL 32.7-35.6 [facility] RDW 12.7 % 11.5-14.0 [facility] Platelet count 254 x10E3/uL 150-450 [facility] ital MPV 9.9 fl 6.9-9.5 [facility] Neutrophils 58.1 % 34-64 [facility] Lymphocytes 34.1 % 25-45 [facility] Monocytes 6.4 % 1.7-10.6 [facility] Eosinophils 0.9 % 0.4-7.0 [facility] Basophils 0.1 % 0.1-2.0 [facility] Imm. Gran. 0.4 % 0.1-2.0 [facility] Abs. Neutro. 4.42 x10E3/uL 1.2-7.6 [facility] Abs. Lymph. 2.60 x10E3/uL 1.0-3.5 [facility] Abs. Kerr. 0.49 x10E3/uL 0.1-1.0 [facility] Abs. Eosin. 0.07 x10E3/uL 0.1-0.7 [facility] Abs. Baso. 0.01 x10E3/uL 0.0-0.1 [facility] Abs. Imm. Gran. 0.03 x10E3/uL 0.0-0.1 [facility] ANRBC% 0 % 0 [facility] ID Date Data Source [id number] 05/09/2020 01:04:00 PM EDT [facility] [address] HEALTH PROGRESS NOTEPATIENT NAME: YARELI HATCH PHYSICIAN: BOGDAN MACIAS MDAUTHOR: Colleen SMITH,Sarahy. DATE: 02/15/20 MR#: [id number] NOTE DATE: 05/09/20 RM#: [id number] TIME: 1307 [...] SIGNED: 05/09/20 Electronically SignedTIME SIGNED: 1307 BOGDAN MACIAS MD Name Value Range Interpretation Code Description Data Stephanie rce(s) Supporting Document(s) ID Date Data Source [id number] 05/08/2020 12:46:00 PM EDT [address] HEALTH PROGRESS NOTEPATIENT NAME: YARELI HATCH PHYSICIAN: BOGDAN MACIAS MDAUTHOR: Colleen SMITH,DhruvADM. DATE: 02/15/20 MR#: [id number] NOTE DATE: 05/08/20 RM#: [id number] TIME: 1248 [...] SIGNED: 05/08/20 Electronically SignedTIME SIGNED: 1248 BOGDAN MACIAS MD Name Value Range Interpretation Code Description Data Stephanie rce(s) Supporting Document(s) ID Date Data Source [id number] 05/07/2020 01:49:00 PM EDT [address] HEALTH PROGRESS NOTEPATIENT NAME: YARELI HATCH PHYSICIAN: BOGDAN MACIAS, MDAUTHOR: Colleen SMITH,Sarahy. DATE: 02/15/20 MR#: [id number] NOTE DATE: 05/07/20 RM#: [id number] TIME: 1351 [...] SIGNED: 05/07/20 Electronically SignedTIME SIGNED: 1351 BOGDAN MACIAS MD Name Value Range Interpretation Code Description Data Stephanie rce(s) Supporting Document(s) ID Date Data Source [id number] 05/06/2020 01:32:00 PM EDT [address] HEALTH PROGRESS NOTEPATIENT NAME: YARELI HATCH PHYSICIAN: BOGDAN MACIAS MDAUTHOR: Colleen SMITH,DhruvADM. DATE: 02/15/20 MR#: [id number] NOTE DATE: 05/06/20 RM#: [id number] TIME: 1335 is 19-year-old female, currently single, lives in a motel,past psych history of bipolar disorderCC/Hx Present IllnessThe patient was referred for evaluation because pt having suicidal ideations.Events Since Last EntryPatient was seen along with sitter as well as ad operations coordinator on otherside, patient was resting comfortable, [...] SIGNED: 05/06/20 Electronically SignedTIME SIGNED: 1335 BOGDAN MACIAS MD Name Value Range Interpretation Code Description Data Stephanie rce(s) Supporting Document(s) ID Date Data Source [id number] 05/05/2020 11:49:00 PM EDT [address] [id number] NOTE FOLLOW UPPATIENT NAME: YARELI HATCH PHYSICIAN: BOGDAN MACIAS MDAUTHOR: Dori SMITH,[facility]. DATE: 02/15/20 MR#: [id number] NOTE DATE: 05/05/20 RM#: [id number] TIME: 0014 : 00Progress Note Follow UpSummaryNurse called to [...] further management.DATE SIGNED: 05/06/20 Electronically SignedTIME SIGNED: 0014 NEIL YUSUF MD Name Value Range Interpretation Code Description Data Stephanie rce(s) Supporting Document(s) ID Date Data Source [id number] 05/05/2020 02:12:00 AM EDT [facility] [place] Name Value Range Interpretation Code Description Data Stephanie rce(s) Supporting Document(s) MAGNESIUM 2.2 mg/dL 1.6-2.6 [facility] ID Date Data Source [id number] 05/05/2020 02:12:00 AM EDT [facility] [place] Name Value Range Interpretation Code Description Data Stephanie rce(s) Supporting Document(s) ALLEN 4.5 mg/dL 2.5-4.5 [facility] ID Date Data Source [id number] 05/05/2020 02:12:00 AM EDT [facility] Name Value Range Interpretation Code Description Data Stephanie rce(s) Supporting Document(s) GLU 97 mg/dL 70-110 [facility] Patients taking Sulfasalazine may have f alsely depressedGlucose levels. Patients taking Sulfapyridine may havefalsely elevated Glucose levels. Patients should be drawnfor Glucose before the initial administration of eitherdrug. BUN 18 mg/dL 7-23 [facility] CRE 0.571 mg/dL 0.500-1.300 [facility] CHLORIDE 109 mmol/L 99-110 [facility] NA 142 mmol/L 136-147 [facility] POTASSIUM 4.3 mmol/L 3.5-5.1 [facility] TCO2 27 mmol/L 20-33 [facility] ANION GAP 10.3 10.0-20.0 [facility] CA 8.7 mg/dL 8.3-10.7 [facility] ALKALINE PHOS 126 U/L 82-169 [facility] TP 7.1 g/dL 6.0-7.8 [facility] ALB 3.6 g/dL 3.5-5.0 [facility] ESRD Dialysis patient Albumin reference range: 2.9-4.4 g/dL GL 3.5 g/dL 2.3-3.5 [facility] A/G 1.0 1.0-2.5 [facility] T. BILIRUBIN 0.3 mg/dL 0.1-1.1 [facility] The Dimension [place] Total Bilirubin is n ot recommended forpatients undergoing treatment with eltrombopag (Promacta)due to the potential for falsely elevated results. ALTI 47 U/L 6-54 [facility] Patients taking Sulfasalazine and/or Sul fapyridine may havefalsely depressed ALT levels. Patients should be drawn forALT before the initial administration of either drug. AST 18 U/L 6-38 [facility] Patients taking Sulfasalazine and/or Sul fapyridine may havefalsely depressed AST levels. Patients should be drawn forAST before the initial administration of either drug. ID Date Data Source [id number] 05/05/2020 01:52:00 AM EDT [facility] [place] Name Value Range Interpretation Code Description Data Stephanie rce(s) Supporting Document(s) WBC 8.06 x10E3/uL 4.0-10.5 [facility] RBC 4.09 x10E6/uL 4.20-5.40 [facility] Hemoglobin 11.8 g/dL 12.0-16.0 [facility] Hematocrit 36.6 % 37.0-47.0 [facility] MCV 89.5 fL 81.0-99.0 [facility] MCH 28.9 pg 27.0-31.0 [facility] MCHC 32.2 g/dL 32.7-35.6 [facility] RDW 12.6 % 11.5-14.0 [facility] Platelet count 226 x10E3/uL 150-450 [facility] ital MPV 9.6 fl 6.9-9.5 [facility] Neutrophils 51.7 % 34-64 [facility] Lymphocytes 38.1 % 25-45 [facility] Monocytes 8.4 % 1.7-10.6 [facility] Eosinophils 1.1 % 0.4-7.0 [facility] Basophils 0.2 % 0.1-2.0 [facility] Imm. Gran. 0.5 % 0.1-2.0 [facility] Abs. Neutro. 4.16 x10E3/uL 1.2-7.6 [facility] Abs. Lymph. 3.07 x10E3/uL 1.0-3.5 [facility] Abs. Kerr. 0.68 x10E3/uL 0.1-1.0 [facility] Abs. Eosin. 0.09 x10E3/uL 0.1-0.7 [facility] Abs. Baso. 0.02 x10E3/uL 0.0-0.1 [facility] Abs. Imm. Gran. 0.04 x10E3/uL 0.0-0.1 [facility] spital ANRBC% 0 % 0 [facility] ID Date Data Source [id number] 05/05/2020 12:57:00 AM EDT [address] [id number] NOTE FOLLOW UPPATIENT NAME: YARELI HATCH PHYSICIAN: BOGDAN MACIAS MDAUTHOR: Dori SMITH,[facility]. DATE: 02/15/20 MR#: [id number] NOTE DATE: 05/05/20 RM#: [id number] TIME: 0117 : 00Progress Note Follow UpSummaryM nurse called to evaluate patient as patient [...] rce(s) Supporting Document(s) ID Date Data Source [id number] 05/03/2020 01:24:00 PM EDT [address] HEALTH PROGRESS NOTEPATIENT NAME: [facility]ELI HATCH [facility]IC[facility]: BOGDAN MACIAS MDAUTHOR: Colleen SMITH,DhruvADM. DATE: 02/15/20 MR#: [id number] NOTE DATE: 05/03/20 RM#: [id number] TIME: 1325 [...] SIGNED: 05/03/20 Electronically SignedTIME SIGNED: 1325 BOGDAN MACIAS MD Name Value Range Interpretation Code Description Data Stephanie rce(s) Supporting Document(s) ID Date Data Source [id number] 05/02/2020 01:53:00 PM EDT [address] [address]KNVYKP HEALTH PROGRESS NOTEPATIENT NAME: YARELI HATCH PHYSICIAN: BOGDAN MACIAS MDAUTHOR: Colleen SMITH,DhruvADM. DATE: 02/15/20 MR#: [id number] NOTE DATE: 05/02/20 RM#: [id number] TIME: 1355 [...] current treatment plan, [facility] with the [facility]reg[facility] as well as increasing further Topamax [...] SIGNED: 05/02/20 Electronically SignedTIME SIGNED: 1355 BOGDAN MACIAS MD Name Value Range Interpretation Code Description Data Stephanie rce(s) Supporting Document(s) ID Date Data Source [id number] 05/01/2020 01:01:00 PM EDT [place] [address] HEALTH PROGRESS NOTEPATIENT NAME: YARELI HATCH PHYSICIAN: BOGDAN MACIAS MDAUTHOR: Colleen SMITH,Sarahy. DATE: 02/15/20 MR#: [id number] NOTE DATE: 05/01/20 RM#: [id number] TIME: 1303 [...] SIGNED: 05/01/20 Electronically SignedTIME SIGNED: 1303 BOGDAN MACIAS MD Name Value Range Interpretation Code Description Data Stephanie rce(s) Supporting Document(s) ID Date Data Source [id number] 04/30/2020 01:52:00 PM EDT [address] HEALTH PROGRESS NOTEPATIENT NAME: YARELI HATCH PHYSICIAN: BOGDAN MACIAS MDAUTHOR: Colleen SMITH,DhruvADM. DATE: 02/15/20 MR#: [id number] NOTE DATE: 04/30/20 RM#: [id number] TIME: 1355 [...] SIGNED: 04/30/20 Electronically SignedTIME SIGNED: 1354 BOGDAN MACIAS MD Name Value Range Interpretation Code Description Data Stephanie rce(s) Supporting Document(s) ID Date Data Source [id number] 04/29/2020 11:16:00 AM EDT [place] [address]MENTAL HEALTH PROGRESS NOTEPATIENT NAME: YARELI HATCH [place] PHYSICIAN: BOGDAN MACIAS MDAUTHOR: Colleen SMITH,DhruvADM. DATE: 02/15/20 MR#: [id number] NOTE DATE: 04/29/20 RM#: [id number] TIME: 1120 [...] current safe discharge plan regarding going to [facility] as well.Patient denied having any medication [...] SIGNED: 04/29/20 Electronically SignedTIME SIGNED: 1120 BOGDAN MACIAS MD Name Value Range Interpretation Code Description Data Stephanie rce(s) Supporting Document(s) ID Date Data Source [id number] 04/26/2020 01:20:00 PM EDT [address] PROGRESS NOTEPATIENT NAME: YARELI HATCH PHYSICIAN: BOGDAN MACIAS MDAUTHOR: Colleen SMITH,DhruvAPUJA. DATE: 02/15/20 MR#: [id number] NOTE DATE: 04/26/20 RM#: [id number] TIME: 1323 [...] current treatment plan which we discussed with thenursing staff regarding patient to be called [place] at this point as well. Wealso discussed with the patient about maintaining her [...] SIGNED: 04/26/20 Electronically SignedTIME SIGNED: 1323 BOGDAN MACIAS MD Name Value Range Interpretation Code Description Data Stephanie rce(s) Supporting Document(s) ID Date Data Source [id number] 04/25/2020 01:43:00 PM EDT [address] HEALTH PROGRESS NOTEPATIENT NAME: YARELI HATCH PHYSICIAN: BOGDAN MACIAS MDAUTHOR: Colleen SMITH,DhruvADM. DATE: 02/15/20 MR#: [id number] NOTE DATE: 04/25/20 RM#: [id number] TIME: 1345 [...] SIGNED: 04/25/20 Electronically SignedTIME SIGNED: 1345 BOGDAN MACIAS MD Name Value Range Interpretation Code Description Data Stephanie rce(s) Supporting Document(s) ID Date Data Source [id number] 04/24/2020 02:01:00 PM EDT [place] [address]MENTAL HEALTH PROGRESS NOTEPATIENT NAME: YARELI HATCH PHYSICIAN: BOGDAN MACIAS MDAUTHOR: Colleen SMITH,DhruvADM. DATE: 02/15/20 MR#: [id number] NOTE DATE: 04/24/20 RM#: [id number] TIME: 1404 [...] sent areferral to supportive environment such as [facility] and other places as well. Atthe [...] 04/24 1140B/P 135/83 04/24 1140Temp 97.3 04/24 114Pulse 91 04/24 1140Resp 16 04/24 1140Current MedicationsFluoxetine [...] side effectsDATE SIGNED: 04/24/20 Electronically SignedTIME SIGNED: 1400 BOGDAN MACIAS MD Name Value Range Interpretation Code Description Data Stephanie rce(s) Supporting Document(s) ID Date Data Source [id number] 04/23/2020 01:23:00 PM EDT [address] [address]VDGFDW HEALTH PROGRESS NOTEPATIENT NAME: YARELI HATCH PHYSICIAN: BOGDAN MACIAS MDAUTHOR: Colleen SMITH,DhruvADM. DATE: 02/15/20 MR#: [id number] NOTE DATE: 04/23/20 RM#: [id number] TIME: 1326 [...] safety as well. Patient was also [facility] and the letter was delivered to her which patient later on agreedfor further treatment to [facility] as well. Patient also reporting [...] current treatment plan, discussed with the [facility]regarding [facility], continuing current medication [...] SIGNED: 04/23/20 Electronically SignedTIME SIGNED: 1326 BOGDAN MACIAS MD Name Value Range Interpretation Code Description Data Stephanie rce(s) Supporting Document(s) ID Date Data Source [id number] 04/22/2020 09:56:[facility] [place], [place] [address]QVTDRB HEALTH PROGRESS NOTEPATIENT NAME: YARELI HATCH [place] PHYSICIAN: BOGDAN MACIAS MDAUTHOR: Ana Win. DATE: 02/15/20 MR#: [id number] NOTE DATE: 04/22/20 RM#: 317EVALUATION TIME: 1008 [...] (Clotrimazole) 0 DIRECTED TOPNasal Lubricant (Saline Nasal [place]) 0 Q3HPRN PRN NASALExaminationMusculoskeletalGait normalStation normalMental Status [...] rce(s) Supporting Document(s) ID Date Data Source [id number] 04/19/2020 01:13:00 PM EDT [place] [address]MENTAL HEALTH PROGRESS NOTEPATIENT NAME: YARELI HATCH PHYSICIAN: BOGDAN MACIAS, JESSICAUTHOR: Colleen SMITH,Sarahy. DATE: 02/15/20 MR#: [id number] NOTE DATE: 04/19/20 RM#: [id number] TIME: 1315 [...] (Clotrimazole) 0 DIRECTED TOPNasal Lubricant (Saline Nasal [place]) 0 Q3HPRN PRN NASALExaminationMusculoskeletalGait normalStation normalResultsResults Ordered/ReviewedLab Tests reviewedAssessment/PlanDiagnosis1. Major depressive disorderStatus Acute2. Suicide attemptStatus Acute3. Bipolar affective disorderCoordination of care provided with nursing staff, treatment teamRisk/benefits discussed side effectsDATE SIGNED: 04/19/20 Electronically SignedTIME SIGNED: 1315 BOGDAN MACIAS MD Name Value Range Interpretation Code Description Data Stephanie rce(s) Supporting Document(s) ID Date Data Source [id number] 04/18/2020 12:59:00 PM EDT [address] HEALTH PROGRESS NOTEPATIENT NAME: YARELI HATCH PHYSICIAN: BOGDAN MACIAS MDAUTHOR: Colleen SMITH,DhruvADM. DATE: 02/15/20 MR#: [id number] NOTE DATE: 04/18/20 RM#: [id number] TIME: 1301 [...] (Clotrimazole) 0 DIRECTED TOPNasal Lubricant (Saline Nasal [place]) 0 Q3HPRN PRN NASALExaminationMusculoskeletalGait normalStation normalResultsLaboratory DataRecent [...] SIGNED: 04/18/20 Electronically SignedTIME SIGNED: 1301 BOGDAN MACIAS MD Name Value Range Interpretation Code Description Data Stephanie rce(s) Supporting Document(s) ID Date Data Source [id number] 04/17/2020 07:50:00 PM EDT [facility] [place] Name Value Range Interpretation Code Description Data Stephanie rce(s) Supporting Document(s) LIP 60.0 U/L 73-393 L [facility] ID Date Data Source [id number] 04/17/2020 07:50:00 PM EDT [facility] [place] Name Value Range Interpretation Code Description Data Stephanie rce(s) Supporting Document(s) GLU 113 mg/dL 70-110 H [facility] Patients taking Sulfasalazine may have f alsely depressedGlucose levels. Patients taking Sulfapyridine may havefalsely elevated Glucose levels. Patients should be drawnfor Glucose before the initial administration of eitherdrug. BUN 17 mg/dL 7-23 [facility] CRE 0.692 mg/dL 0.500-1.300 [facility] CHLORIDE 109 mmol/L 99-110 [facility] NA 141 mmol/L 136-147 [facility] POTASSIUM 3.9 mmol/L 3.5-5.1 [facility] TCO2 24 mmol/L 20-33 [facility] ANION GAP 11.9 10.0-20.0 [facility] CA 9.1 mg/dL 8.3-10.7 [facility] ALKALINE PHOS 148 U/L 82-169 [facility] TP 8.0 g/dL 6.0-7.8 H [facility] ALB 4.3 g/dL 3.5-5.0 [facility] ESRD Dialysis patient Albumin reference range: 2.9-4.4 g/dL GL 3.7 g/dL 2.3-3.5 H [facility] A/G 1.2 1.0-2.5 [facility] T. BILIRUBIN 0.3 mg/dL 0.1-1.1 [facility] The Dimension [place] Total Bilirubin is n ot recommended forpatients undergoing treatment with eltrombopag (Promacta)due to the potential for falsely elevated results. ALTI 45 U/L 6-54 [facility] Patients taking Sulfasalazine and/or Sul fapyridine may havefalsely depressed ALT levels. Patients should be drawn forALT before the initial administration of either drug. AST 26 U/L 6-38 [facility] Patients taking Sulfasalazine and/or Sul fapyridine may havefalsely depressed AST levels. Patients should be drawn forAST before the initial administration of either drug. ID Date Data Source [id number] 04/17/2020 07:17:00 PM EDT [facility] Name Value Range Interpretation Code Description Data [facility] Supporting Document(s) HbA1C 4.70 % 3.8-5.6 [facility] Suggested Diagnosis HbA1c% Diabet ic >/= 6.5Prediabetes 5.7%-6.4%Normal < 5.7% ID Date Data Source [id number] 04/17/2020 06:39:00 PM EDT [facility] Name Value Range Interpretation Code Description Data Stephanie rce(s) Supporting Document(s) WBC 6.99 x10E3/uL 4.0-10.5 [facility] RBC 4.51 x10E6/uL 4.20-5.40 [facility] Hemoglobin 13.0 g/dL 12.0-16.0 [facility] Hematocrit 39.4 % 37.0-47.0 [facility] MCV 87.4 fL 81.0-99.0 [facility] MCH 28.8 pg 27.0-31.0 [facility] MCHC 33.0 g/dL 32.7-35.6 [facility] RDW 12.7 % 11.5-14.0 [facility] Platelet count 260 x10E3/uL 150-450 N [facility] ital MPV 9.5 fl 6.9-9.5 [facility] Neutrophils 53.5 % 34-64 [facility] Lymphocytes 38.1 % 25-45 [facility] Monocytes 6.9 % 1.7-10.6 [facility] Eosinophils 0.9 % 0.4-7.0 [facility] Basophils 0.3 % 0.1-2.0 [facility] Imm. Gran. 0.3 % 0.1-2.0 [facility] Abs. Neutro. 3.75 x10E3/uL 1.2-7.6 [facility] Abs. Lymph. 2.66 x10E3/uL 1.0-3.5 [facility] Abs. Kerr. 0.48 x10E3/uL 0.1-1.0 [facility] Abs. Eosin. 0.06 x10E3/uL 0.1-0.7 [facility] Abs. Baso. 0.02 x10E3/uL 0.0-0.1 [facility] Abs. Imm. Gran. 0.02 x10E3/uL 0.0-0.1 [facility] spital ANRBC% 0 % 0 [facility] ID Date Data Source [id number] 04/17/2020 05:59:00 PM EDT [facility] [address] [address]VUNTQYY REPORTPATIENT NAME: YARELI HATCH MR#: [id number] PHYSICIAN: ANGELA VELAZQUEZONSULTING PHYSICIAN: Theresa Chowdhury DATE: 02/15/20 RM#: [id number] DATE: 04/17/20 : 00EVALUATION TIME: 1803HistoryReason for consultABD PainRequested byDr. Andrade Complaint/Admit ReasonSuicidial thoughts, anxiety and depressionHistory of [...] judgement, abnormal insight, anxiousData ReviewLaboratory Datapending.ImagingEXAM# TYPE/EXAM [id number] US/U/S COMPLETE UPPER ABDOMENDATE OF EXAMINATION: 04/17/2020 [...] Full codePlan discussed with patientCase discussed with manager case, nursing staffDATE SIGNED: 04/17/20 Electronically SignedTIME SIGNED: 180 THERESA COOPER Name Value Range Interpretation Code Description Data Stephanie rce(s) Supporting Document(s) ID Date Data Source [id number] 04/17/2020 01:29:00 PM EDT [address], [place] [address]QHC[facility] HEALTH PROGRESS NOTEPATIENT NAME: YARELI HATCH PHYSICIAN: BOGDAN MACIAS, MDAUTHOR: Colleen SMITH,DawsonvAPUJA. DATE: 02/15/20 MR#: [id number] NOTE DATE: 04/17/20 RM#: [id number] TIME: 1331 [...] she just wanted to have his number fromHubbubbook which we discussed with the patient about [...] (Clotrimazole) 0 DIRECTED TOPNasal Lubricant (Saline Nasal [place]) 0 Q3HPRN PRN NASALExaminationMusculoskeletalGait normalStation normalResultsResults Ordered/ReviewedLab Tests reviewedAssessment/PlanDiagnosis1. Bipolar disorder, manicCoordination of care provided with nursing staff, treatment teamRisk/benefits discussed side effectsJustification for continued stay danger to self/others, behavior intolerableDATE SIGNED: 04/17/20 Electronically SignedTIME SIGNED: 1330 BOGDAN MACIAS MD Name Value Range Interpretation Code Description Data Stephanie rce(s) Supporting Document(s) ID Date Data Source [id number] 04/17/2020 01:00:00 PM EDT [facility] Exam Number: [id number] OF EXAMINATIO N: 04/17/2020 8:00 EDTU/S COMPLETE [...] of liver.Electronically signed in PS360 by: Brennan Watson M.D. 04/17/202012:53 EDT Reported By: Maria De Jesus WATSON M.D. Signed By: Corrie WATSON M.D. Name Value Range Interpretation Code Description Data Stephanie rce(s) Supporting Document(s) ID Date Data Source [id number] 04/16/2020 01:31:00 PM EDT [address] PROGRESS NOTEPATIENT NAME: YARELI HATCH PHYSICIAN: BOGDAN MACIAS MDAUTHOR: Colleen SMITH,DhruvADM. DATE: 02/15/20 MR#: [id number] NOTE DATE: 04/16/20 RM#: [id number] TIME: 1336 [...] (Clotrimazole) 0 DIRECTED TOPNasal Lubricant (Saline Nasal [place]) 0 Q3HPRN PRN NASALIbuprofen (Motrin) 600 MG Q6HPRN PRN POExaminationMusculoskeletalGait normalStation normalResultsResults Ordered/ReviewedLab Tests reviewedAssessment/PlanDiagnosis1. Bipolar disorder, manicCoordination of care provided with nursing staff, treatment teamRisk/benefits discussed side eff ectsJustification for continued stay danger to self/othersDATE SIGNED: 04/16/20 Electronically SignedTIME SIGNED: 1336 BOGDAN MACIAS MD Name Value Range Interpretation Code Description Data Stephanie rce(s) Supporting Document(s) ID Date Data Source [id number] 04/15/2020 11:11:00 AM EDT [address] PROGRESS NOTEPATIENT NAME: YARELI HATCH PHYSICIAN: BOGDAN MACIAS MDAUTHOR: Colleen SMITH,DhruvAPUJA. DATE: 02/15/20 MR#: [id number] NOTE DATE: 04/15/20 RM#: [id number] TIME: 1114 [...] using her coping skills and reaching out tothe nurses and staff as well. Encouraged her [...] (Clotrimazole) 0 DIRECTED TOPNasal Lubricant (Saline Nasal [place]) 0 Q3HPRN PRN NASALIbuprofen (Motrin) 600 MG Q6HPRN PRN POExaminationMusculoskeletalGait normalStation normalResultsResults Ordered/ReviewedLab Tests reviewedAssessment/PlanDiagnosis1. Bipolar disorder, manicCoordination of care provided with nursing staff, treatment teamRisk/benefits discussed side effectsDATE SIGNED: 04/15/20 Electronically SignedTIME SIGNED: 1114 BOGDAN MACIAS MD Name Value Range Interpretation Code Description Data Stephanie rce(s) Supporting Document(s) ID Date Data Source [id number] 04/14/2020 12:01:00 PM EDT [address] HEALTH PROGRESS NOTEPATIENT NAME: YARELI HATCH PHYSICIAN: BOGDAN MACIAS MDAUTHOR: Colleen SMITH,DhruvADM. DATE: 02/15/20 MR#: [id number] NOTE DATE: 04/14/20 #: [id number] TIME: 1203 is 19-year-old female, currently [...] reported.ObjectiveVital SignsVital Signs-LastResult Date TimePulse Ox 100 10 1100B/P 129/62 04/13 1100Temp 97.7 04/13 1100Pulse [...] (Clotrimazole) 0 DIRECTED TOPNasal Lubricant (Saline Nasal [place]) 0 Q3HPRN PRN NASALIbuprofen (Motrin) 600 MG [...] SIGNED: 04/14/20 Electronically SignedTIME SIGNED: 1203 BOGDAN MACIAS MD Name Value Range Interpretation Code Description Data Stephanie rce(s) Supporting Document(s) ID Date Data Source [id number] 04/12/2020 11:39:00 AM EDT [address] PROGRESS NOTEPATIENT NAME: YARELI HATCH PHYSICIAN: BOGDAN MACIAS MDAUTHOR: Colleen SMITH,DhruvADM. DATE: 02/15/20 MR#: [id number] NOTE DATE: 04/12/20 RM#: [id number] TIME: 1141 is 19-year-old female, currently single, lives in a motel,past psych history of bipolar disorderCC/Hx Present IllnessThe patient was referred for evaluation because pt having suicidal ideations.Events Since Last EntryPatient reporting feeling somewhat okay, she stated that at this point shefeels [facility], [facility] due to ongoing mood [...] (Clotrimazole) 0 DIRECTED TOPNasal Lubricant (Saline [place]al [place]) 0 Q3HPRN PRN NASALIbuprofen (Motrin) 600 MG [...] SIGNED: 04/12/20 Electronically SignedTIME SIGNED: 1141 BOGDAN MACIAS MD Name Value Range Interpretation Code Description Data Stephanie rce(s) Supporting Document(s) ID Date Data Source [id number] 04/11/2020 01:20:00 PM EDT [place] [id number] PROGRESS NOTEPATIENT NAME: YARELI HATCH PHYSICIAN: BOGDAN MACIAS MDAUTHOR: Colleen SMITH,DhruvADM. DATE: 02/15/20 MR#: [id number] NOTE DATE: 04/11/20 RM#: [id number] TIME: 1323 [...] this point we discussedwith the patient regarding [facility] transfer for further stabilization due tosignificant ongoing [...] (Clotrimazole) 0 DIRECTED TOPNasal Lubricant (Saline [place]al [place]) 0 Q3HPRN PRN NASALIbuprofen (Motrin) 600 MG [...] SIGNED: 04/11/20 Electronically SignedTIME SIGNED: 1323 BOGDAN MACIAS MD Name Value Range Interpretation Code Description Data Stephanie rce(s) Supporting Document(s) ID Date Data Source [id number] 04/10/2020 01:13:00 PM EDT [facility] [place], [place] [address]MENTAL HEALTH PROGRESS NOTEPATIENT NAME: YARELI HATCH PHYSICIAN: BOGDAN MACIAS, MDAUTHOR: Colleen SMITH,DhruvADM. DATE: 02/15/20 MR#: [id number] NOTE DATE: 04/10/20 RM#: [id number] TIME: 1317 [...] continue current treatment plan, patient is recommended forSLP in 6 months retention due to ongoing [...] (Clotrimazole) 0 DIRECTED TOPNasal Lubricant (Saline [place]al [place]) 0 Q3HPRN PRN NASALIbuprofen (Motrin) 600 MG [...] SIGNED: 04/10/20 Electronically SignedTIME SIGNED: 1317 BOGDAN MACIAS MD Name Value Range Interpretation Code Description Data Stephanie rce(s) Supporting Document(s) ID Date Data Source [id number] 04/09/2020 01:48:00 PM EDT [facility] PROGRESS NOTEPATIENT NAME: YARELI HATCH PHYSICIAN: BOGDAN MACIAS MDAUTHOR: Colleen SMITH,TrinoruvAPUJA. DATE: 02/15/20 MR#: [id number] NOTE DATE: 04/09/20 RM#: 318EVALUATION TIME: 1353 is 19-year-old female, currently single, lives in a motel,past psych history of bipolar disorderCC/Hx Present IllnessThe patient was referred for evaluation because pt having suicidal ideations.Events Since Last EntryPatient was somewhat upset later on expressing that she wanted to stay here andshe does not feel comfortable going to motel where she came from as well. Wediscussed [...] sort of secondary [facility] Offered patient all available options which richelle bansal seems to be refusingand some of other places patient was not accepted due to prior history as well.At this point [facility] is also involved, also planning to add voluntaryhospitalization and providing all available [facility] Discussed with the patient about [...] (Clotrimazole) 0 DIRECTED TOPNasal Lubricant (Saline Nasal [place]) 0 Q3HPRN PRN NASALIbuprofen (Motrin) 600 MG [...] SIGNED: 04/09/20 Electronically SignedTIME SIGNED: 1353 BOGDAN MACIAS MD Name Value Range Interpretation Code Description Data Stephanie rce(s) Supporting Document(s) ID Date Data Source [id number] 04/08/2020 03:04:00 PM EDT [address] HEALTH PROGRESS NOTEPATIENT NAME: [facility]ATCH [facility]: BOGDAN MACIAS MDAUTHOR: Colleen SMITH,DhruvADM. DATE: 02/15/20 MR#: [id number] NOTE DATE: 04/08/20 RM#: [id number] TIME: 1506 [...] 99 04/08 1044Resp 18 04/08 1044Pulse Ox 04/07 1500Current MedicationsLoratadine (Claritin) 10 MG DAILY POTopiramate (Topamax) 50 MG BID POPatient Own Medication (PT'S OWN MED) 400 DOSE Q28D IMBenzocaine/Pectin/Carboxymethylcell (Cepastat) 1 JHOAN Q2HPRN PRN POClotrimazole (Clotrimazole) 0 DIRECTED TOPNasal Lubricant (Saline [place]al [place]) 0 Q3HPRN PRN NASALIbuprofen (Motrin) 600 MG [...] SIGNED: 04/08/20 Electronically SignedTIME SIGNED: 1506 BOGDAN MACIAS MD Name Value Range Interpretation Code Description Data Stephanie rce(s) Supporting Document(s) ID Date Data Source [id number] 04/05/2020 02:20:00 PM EDT [address] HEALTH PROGRESS NOTEPATIENT NAME: [facility] HATCH [facility]: BOGDAN MACIAS MDAUTHOR: Ana Win. DATE: 02/15/20 MR#: [id number] NOTE DATE: 04/05/20 RM#: [id number] TIME: 1427 [...] (Clotrimazole) 0 DIRECTED TOPNasal Lubricant (Saline Nasal [place]) 0 Q3HPRN PRN NASALIbuprofen (Motrin) 600 MG [...] behavior intolerableDATE SIGNED: 04/05/20 Electronically SignedTIME SIGNED: 1420 FRANTZ - CHRISTOPHER GIORDANO Name Value Range Interpretation Code Description Data Stephanie rce(s) Supporting Document(s) ID Date Data Source [id number] 04/05/2020 01:38:00 PM EDT [facility] [place] [id number] HEALTH PROGRESS NOTEPATIENT NAME: YARELI HATCH PHYSICIAN: BOGDAN MACIAS, MDAUTHOR: Colleen SMITH,DhruvADM. DATE: 02/15/20 MR#: [id number] NOTE DATE: 04/05/20 RM#: [id number] TIME: 1342 [...] (Clotrimazole) 0 DIRECTED TOPNasal Lubricant (Saline Nasal [place]) 0 Q3HPRN PRN NASALIbuprofen (Motrin) 600 MG [...] side effectsDATE SIGNED: 04/05/20 Electronically SignedTIME SIGNED: 1341 BOGDAN MACIAS MD Name Value Range Interpretation Code Description Data Stephanie rce(s) Supporting Document(s) ID Date Data Source [id number] 04/04/2020 01:16:00 PM EDT [address] HEALTH PROGRESS NOTEPATIENT NAME: YARELI HATCH PHYSICIAN: BOGDAN MACIAS MDAUTHOR: Colleen SMITH,DhruvADM. DATE: 02/15/20 MR#: [id number] NOTE DATE: 04/04/20 #: 318EVALUATION TIME: 1321 is 19-year-old female, currently single, lives in a motel,past psych history of bipolar disorderCC/Hx Present IllnessThe patient was referred for evaluation because pt having suicidal ideations.Events Since Last EntryPatient reported earlier to the ad operations coordinator regarding that she haddifficulty with her [...] SignsVital Signs-LastResult Date Time Pulse Ox 98 09/24 1100B/P 130/88 04/04 1100Temp 97.7 04/04 1100Pulse 98 04/04 1100Resp 16 04/04 1100Current MedicationsSertraline HCl (Zoloft) 25 MG DAILY POAripiprazole (Aripiprazole) 5 MG DAILY POBenzocaine/Pectin/Carboxymethylcell (Cepastat) 1 JHOAN Q2HPRN PRN POClotrimazole (Clotrimazole) 0 DIRECTED TOPNasal Lubricant (Saline [place]al [place]) 0 Q3HPRN PRN NASALClonidine (Catapres) 0.1 MG [...] SIGNED: 04/04/20 Electronically SignedTIME SIGNED: 1321 BOGDAN MACIAS MD Name Value Range Interpretation Code Description Data Stephanie rce(s) Supporting Document(s) ID Date Data Source [id number] 04/04/2020 11:16:00 AM EDT [address] PROGRESS NOTEPATIENT NAME: YAREIL HATCH PHYSICIAN: BOGDAN MACIAS MDAUTHOR: Pasquale WHITE,FrantzADM. DATE: 02/15/20 MR#: [id number] NOTE DATE: 04/04/20 RM#: [id number] TIME: 1120 [...] (Clotrimazole) 0 DIRECTED TOPNasal Lubricant (Saline [place]al [place]) 0 Q3HPRN PRN NASALClonidine (Catapres) 0.1 MG [...] nursing staff, treatment teamRisk/benefits discussed side effectsADDENDUM: Yakelin Winah on 04/04/20 at 1120Shortly after seeing Yareli [...] SIGNED: 04/04/20 Electronically SignedTIME SIGNED: 1120 FRANTZ GIORDANO Name Value Range Interpretation Code Description Data Stephanie rce(s) Supporting Document(s) ID Date Data Source [id number] 04/03/2020 01:35:00 PM EDT [place] [address] HEALTH PROGRESS NOTEPATIENT NAME: YARELI HATCH [facility] PH[facility]ICIAN: BOGDAN MACIAS, JESSICAUTHOR: Colleen SMITH,DhruvADM. DATE: 02/15/20 MR#: [id number] NOTE DATE: 04/03/20 RM#: [id number] TIME: 1338 [...] feel comfortable [facility] where[facility] bunch of drug addicts and [...] (Clotrimazole) 0 DIRECTED TOPNasal Lubricant (Saline Nasal [place]) 0 Q3HPRN PRN NASALClonidine (Catapres) 0.1 MG [...] SIGNED: 04/03/20 Electronically SignedTIME SIGNED: 1337 BOGDAN MACIAS MD Name Value Range Interpretation Code Description Data Stephanie rce(s) Supporting Document(s) ID Date Data Source [id number] 04/02/2020 11:54:00 AM EDT [place] [id number] HEALTH PROGRESS NOTEPATIENT NAME: DAMARIS,YARELI CATTENGIOVANNY PHYSICIAN: BOGDAN MACIAS MDAUTHOR: Ana Win. DATE: 02/15/20 MR#: [id number] NOTE DATE: 04/02/20 RM#: [id number] TIME: 1638 is 19-year-old female, currently single, lives in a motel,past psych history of bipolar disorderCC/Hx Present IllnessThe patient was referred for evaluation because pt having suicidal ideations.Events Since Last EntryYareli met with me in [place] office this morning and Dylan AMAYA was alsopresent. Yareli came into the office and stood with arms crossed stating Ihave a problem with her as gestured toward Dylan. Yareli didn t want toaccept that we discovered she didn t tell the truth about staff waking her upand making her leave her room yesterday [facility]. She admitted to walking out of the room on her own accord. Wediscussed that Yareli has a problem with any staff when they don t give her 1:1 time and attempt to set boundaries with her. We told her we wanted to workwith her to help her develop an appropriate treatment plan and to that Venuid she was leaving and walked out, slamming the door.MSE: Yareli s affect is blunted and her mood is [...] SIGNED: 04/02/20 Electronically SignedTIME SIGNED: 1638 FRANTZ - MAXIMILIAN-C PAQSUALE Name Value Range Interpretation Code Description Data Stephanie rce(s) Supporting Document(s) ID Date Data Source [id number] 04/03/2020 07:41:00 AM EDT [address] [id number] NAME: YARELI HATCH Janette Jensen#: [id number] PHYSICIAN: BOGDAN MACIAS MD ADM. DATE: 02/15/20PROGRESS NOTE DATE: 04/02/20 .#: 318ACCOUNT #: [id number] NOTEIDENTIFICATION: A 19-year-old female with schizoaffective disorder,borderline personality disorder.VITAL SIGNS: Temperature of 97, pulse of 105, respirations 16, blood wdtzoxax875/83.SUBJECTIVE: The patient came to the interview room. [...] and medication.Date Dictated: 04/02/2020 11:24:04Date Transcribed: 04/03/2020 06:41:37JV/Arti #: [id number]: 04/02/20 1124 Electronically SignedTRANS:04/03/20 0741 FILI CANELA MDTRANS BY:KIERRA SIGNED:04/03/20REPORT COPY TO: Name Value Range Interpretation Code Description Data Stephanie rce(s) Supporting Document(s) ID Date Data Source [id number] 04/01/2020 02:07:00 PM EDT [address] PROGRESS NOTEPATIENT NAME: YARELI HATCH PHYSICIAN: BOGDAN MACIAS MDAUTHOR: Ana Win. DATE: 02/15/20 MR#: [id number] NOTE DATE: 04/01/20 RM#: 318EVALUATION TIME: 1410 is 19-year-old female, currently single, lives in a motel,past psych history of bipolar disorderCC/Hx Present IllnessThe patient was referred for evaluation because pt having suicidal ideations.Events Since Last EntryNikki and I met with Yareli today. I [...] violated, and that she would notify the corporate attorney because sheis transgender. Yareli disclosed that [...] plan, working on safe discharge plan, possiblyto [place].Assessment/PlanDiagnosis1. Bipolar disorder, manicCoordination of care provided with nursing staff, treatment teamRisk/benefits discussed side effectsDATE SIGNED: 04/01/20 Electronically SignedTIME SIGNED: 140 FRANTZ GIORDANO Name Value Range Interpretation Code Description Data Stephanie rce(s) Supporting Document(s) ID Date Data Source [id number] 04/02/2020 03:13:00 AM EDT [address] [id number] NAME: YARELI HATCH Janette Jensen#: [id number] PHYSICIAN: BOGDAN MACIAS MD ADM. DATE: 02/15/20PROGRESS NOTE DATE: 04/01/20 .#: 318ACCOUNT #: [id number] NOTEIDENTIFICATION: A 19-year-old female with schizoaffective disorder, [...] Dictated: 04/01/2020 10:44:46Date Transcribed: 04/02/2020 02:13:19JV/GBJob #: [id number]: 04/01/20 1044 Electronically SignedTRANS:04/02/20 0313 FILI CANELA MDTRANS BY:TONDAALMA SIGNED:04/02/20REPORT COPY TO: Name Value Range Interpretation Code Description Data Stephanie rce(s) Supporting Document(s) ID Date Data Source [id number] 03/29/2020 11:29:00 AM EDT [address] PROGRESS NOTEPATIENT NAME: YARELI HATCH PHYSICIAN: BOGDAN MACIAS MDAUTHOR: Colleen SMITH,DhruvADM. DATE: 02/15/20 MR#: [id number] NOTE DATE: 03/29/20 RM#: 318EVALUATION TIME: 1131 is 19-year-old female, currently single, well [place] [facility], past psych history of bipolar disorderCC/Hx Present [...] safe dischargeplan, currently waiting on supportive environment, [facility] been [facility] as[facility].ObjectiveVital SignsVital Signs-LastResult Date TimeTemp 98.9 03/29 0647Pulse Ox 99 03/28 1100B/P 96/61 03/28 1100Pulse 98 03/28 1100Resp 16 03/28 1100Current MedicationsSertraline HCl (Zoloft) 75 MG DAILY POBenzocaine/Pectin/Carboxymethylcell (Cepastat) 1 JHOAN Q2HPRN PRN POClotrimazole (Clotrimazole) 0 DIRECTED TOPNasal Lubricant (Saline [place]al [place]) 0 Q3HPRN PRN NASALClonidine (Catapres) 0.1 MG [...] SIGNED: 03/29/20 Electronically SignedTIME SIGNED: 1131 BOGDAN MACIAS MD Name Value Range Interpretation Code Description Data Stephanie rce(s) Supporting Document(s) ID Date Data Source [id number] 03/28/2020 12:37:00 PM EDT [facility] [address] PROGRESS NOTEPATIENT NAME: YARELI HATCH PHYSICIAN: BOGDAN MACIAS MDAUTHOR: Colleen SMITH,Sarahy. DATE: 02/15/20 MR#: [id number] NOTE DATE: 03/28/20 RM#: 318EVALUATION TIME: 1238 is 19-year-old female, currently single, well [place] [facility], past psych history of bipolar disorderCC/Hx Present [...] (Clotrimazole) 0 DIRECTED TOPNasal Lubricant (Saline Nasal [place]) 0 Q3HPRN PRN NASALClonidine (Catapres) 0.1 MG [...] SIGNED: 03/28/20 Electronically SignedTIME SIGNED: 1238 BOGDAN MACIAS MD Name Value Range Interpretation Code Description Data Stephanie rce(s) Supporting Document(s) ID Date Data Source [id number] 03/27/2020 01:16:00 PM EDT [address] HEALTH PROGRESS NOTEPATIENT NAME: YARELI HATCH PHYSICIAN: BOGDAN MACIAS MDAUTHOR: Colleen SMITH,DhruvADM. DATE: 02/15/20 MR#: [id number] NOTE DATE: 03/27/20 RM#: [id number] TIME: 1318 is 19-year-old female, currently single, well lives [place] [facility], past psych history of bipolar disorderCC/Hx Present [...] 98.1 03/27 0656B/P 119/72 03/25 2048Pulse 86 03/25 2048Pulse Ox 100 03/25 1200Resp 20 03/25 1200Current MedicationsSertraline HCl (Zoloft) 75 MG DAILY POBenzocaine/Pectin/Carboxymethylcell (Cepastat) 1 JHOAN Q2HPRN PRN POClotrimazole (Clotrimazole) 0 DIRECTED TOPNasal Lubricant (Saline Nasal [place]) 0 Q3HPRN PRN NASALClonidine (Catapres) 0.1 MG [...] SIGNED: 03/27/20 Electronically SignedTIME SIGNED: 1318 BOGDAN MACIAS MD Name Value Range Interpretation Code Description Data Stephanie rce(s) Supporting Document(s) ID Date Data Source [id number] 03/26/2020 02:18:00 PM EDT [place] [id number] HEALTH PROGRESS NOTEPATIENT NAME: YARELI HATCH PHYSICIAN: BOGDAN MACIAS MDAUTHOR: Colleen SMITH,DhruvADM. DATE: 02/15/20 MR#: [id number] NOTE DATE: 03/26/20 RM#: [id number] TIME: 1419 is 19-year-old female, currently single, well lives in [place] [facility], past psych history of bipolar disorderCC/Hx Present [...] (Clotrimazole) 0 DIRECTED TOPNasal Lubricant (Saline Nasal [place]) 0 Q3HPRN PRN NASALClonidine (Catapres) 0.1 MG [...] side effectsDATE SIGNED: 03/26/20 Electronically SignedTIME SIGNED: 1418 BOGDAN MACIAS MD Name Value Range Interpretation Code Description Data Stephanie rce(s) Supporting Document(s) ID Date Data Source [id number] 03/25/2020 01:50:00 PM EDT [facility] HEALTH PROGRESS NOTEPATIENT NAME: YARELI HATCH PHYSICIAN: BOGDAN MACIAS MDAUTHOR: Colleen SMITH,DhruvADM. DATE: 02/15/20 MR#: [id number] NOTE DATE: 03/25/20 RM#: [id number] TIME: 1352 is 19-year-old female, currently single, well lives in [place] [facility], past psych history of bipolar disorderCC/Hx Present IllnessThe patient was referred for evaluation because pt having suicidal ideations.Events Since Last EntryPatient reporting feeling somewhat okay, expressing that she has been feelingfine and she is open to continue taking her medication as well. Still waitingfor safe discharge plan as well, OM is involved, denied having any medicationside effect [...] (Clotrimazole) 0 DIRECTED TOPNasal Lubricant (Saline Nasal [place]) 0 Q3HPRN PRN NASALClonidine (Catapres) 0.1 MG [...] SIGNED: 03/25/20 Electronically SignedTIME SIGNED: 1352 BOGDAN MACIAS MD Name Value Range Interpretation Code Description Data Stephanie rce(s) Supporting Document(s) ID Date Data Source [id number] 03/22/2020 01:42:00 PM EDT [address] HEALTH PROGRESS NOTEPATIENT NAME: YARELI HATCH PHYSICIAN: BOGDAN MACIAS MDAUTHOR: Colleen SMITH,DhruvADM. DATE: 02/15/20 MR#: [id number] NOTE DATE: 03/22/20 RM#: [id number] TIME: 1344 is 19-year-old female, currently single, well lives in [place] [facility], past psych history of bipolar disorderCC/Hx Present [...] SIGNED: 03/22/20 Electronically SignedTIME SIGNED: 1344 BOGDAN MACIAS MD Name Value Range Interpretation Code Description Data Tsephanie rce(s) Supporting Document(s) ID Date Data Source [id number] 03/21/2020 01:39:00 PM EDT [address] HEALTH PROGRESS NOTEPATIENT NAME: YARELI HATCH PHYSICIAN: BOGDAN MACIAS MDAUTHOR: Colleen SMITH,DhruvADM. DATE: 02/15/20 MR#: [id number] NOTE DATE: 03/21/20 RM#: [id number] TIME: 1341 is 19-year-old female, currently single, well lives in [place] [facility], past psych history of bipolar disorderCC/Hx Present IllnessThe patient was referred for evaluation because pt having suicidal ideations.Events Since Last EntryPatient was seen on other side with ad operations coordinator, patient reportedfeeling okay, but she stated [...] SIGNED: 03/21/20 Electronically SignedTIME SIGNED: 1341 BOGDAN MACIAS MD Name Value Range Interpretation Code Description Data Stephanie rce(s) Supporting Document(s) ID Date Data Source [id number] 03/20/2020 01:45:00 PM EDT [place] [id number] HEALTH PROGRESS NOTEPATIENT NAME: YARELI HATCH PHYSICIAN: BOGDAN MACIAS MDAUTHOR: Colleen SMITH,DhruvADM. DATE: 02/15/20 MR#: [id number] NOTE DATE: 03/20/20 RM#: [id number] TIME: 1348 is 19-year-old female, currently single, well lives in [place] [facility], past psych history of bipolar disorderCC/Hx Present IllnessThe patient was referred for evaluation because pt having suicidal ideations.Events Since Last EntryPatient remained irritable, patient also stated that she does not feelcomfortable taking any psychotropic medication. She was also stating that shedoes not feel comfortable returning back to [facility] [place] or any DSS place or any otherplace [...] SIGNED: 03/20/20 Electronically SignedTIME SIGNED: 1348 BOGDAN MACIAS MD Name Value Range Interpretation Code Description Data Stephanie rce(s) Supporting Document(s) ID Date Data Source [id number] 03/20/2020 02:30:00 AM EDT [place], [place] [address]PATIENT NAME: YARELI HATCH#: [id number] PHYSICIAN: BOGDAN MACIAS MD ADM. DATE: 02/15/20PROGRESS NOTE DATE: 03/19/20 RM.#: [id number] #: [id number] NOTEIDENTIFICATION: A 19-year-old female with schizoaffective disorder.VITAL [...] Dictated: 03/19/2020 10:55:33Date Transcribed: 03/20/2020 01:30:40JV/GBJob #: [id number]: 03/19/20 1055 Electronically SignedTRANS:03/20/20 0230 FILI CANELA MDTRANS BY:KIERRA SIGNED:03/20/20REPORT COPY TO: Name Value Range Interpretation Code Description Data Stephanie rce(s) Supporting Document(s) ID Date Data Source [id number] 03/18/2020 02:02:00 PM EDT [address] HEALTH PROGRESS NOTEPATIENT NAME: YARELI HATCH CATTENGIOVANNY PHYSICIAN: BOGDAN MACIAS MDAUTHOR: Surendra SMITH,P.ADM. DATE: 02/15/20 MR#: [id number] NOTE DATE: 03/18/20 RM#: [id number] TIME: 1407 is 19-year-old female, currently single, well lives in [place] [facility], past psych history of bipolar disorderCC/Hx Present IllnessThe patient was referred for evaluation because pt having suicidal ideations.Additional notesYareli was seen today. She appears to be [...] hospitali zation and treatment plan per Dr. Macias.Portions of this section were scribed by Colby Arroyo on 03/18/20 at 1402DATE SIGNED: 03/20/20 Electronically SignedTIME SIGNED: Sai ONEILL MD Name Value Range Interpretation Code Description Data Stephanie rce(s) Supporting Document(s) Procedure Social History Code Duration Value Status Description Data Source(s ) Alcohol intake 04/05/2021 12:00:00 AM EDT Ex-drinker (finding) comp leted Ex- drinker (finding) [facility] Tobacco use and exposure 04/05/2021 12:00:00 AM EDT Never used co mpleted Never used [facility] Cigarette pack-years 04/05/2021 12:00:[facility] current (pack per day) - Reported 04/05/20 21 12[facility]00:[facility] 04/05/2021 12:00:00 AM EDT Current every day smoker co mpleted Current every day smoker [facility] Smoking 03/20/2021 12:00:00 AM EDT Unknown if ever smoked comp leted Unknown if ever smoked [facility] ([facility] Alcohol intake 03/13/2021 12:00:00 AM EDT Ex-drinker (finding) comp leted Ex- drinker (finding) [facility] Tobacco use and exposure 03/13/2021 12:00:00 AM EDT Never used co mpleted Never used [facility] Cigarettes smoked current (pack per day) - Reported 03/13/20 21 12:00:[facility] 03/13/2021 12:00:00 AM EDT Current every day smoker co mpleted Current every day smoker [facility] Alcohol intake 02/21/2021 12:00:00 AM EDT Ex-drinker (finding) comp leted Ex- drinker (finding) [facility] 12/22/2020 12:00:00 AM EDT Cigarette Smoker completed Cig arette Smoker [facility] 12/22/2020 12:00:00 AM EDT Current every day smoker co mpleted Current every day smoker [facility] Smoking 11/13/2020 12:00:00 AM EDT Unknown if ever smoked comp leted Unknown if ever smoked [facility] ([facility] Smoking 08/27/2020 12:00:00 AM EST Unknown if ever smoked comp leted Unknown if ever smoked [facility] ([facility] Smoking 08/23/2020 12:00:00 AM EST Unknown if ever smoked comp leted Unknown if ever smoked [facility] ([facility] Smoking 06/24/2020 12:00:00 AM EST Unknown if ever smoked comp leted Unknown if ever smoked [facility] ([facility] Vital Signs ID Date Data Source UNK Name Value Range Interpretation Code Description Data Source(s) Systolic blood pressure 129 mm[Hg] 129 mm[Hg] M [facility] Diastolic blood pressure 90 mm[Hg] 90 mm[Hg] [facility] Heart rate 72 /min 72 /min [facility] Respiratory rate 16 /min 16 /min [facility] Oxygen saturation in Arterial blood by Pulse oximetry 95 % 95 % [facility] Body temperature 36.89 Patricia 36.89 Patricia [facility] Body weight 137.[address] [facility] Body mass index (BMI) [Ratio] 48.78 kg/m2 48.78 kg/m2 [facility] Body height 167.[address] [facility] ID Date Data Source [id number] 05/15/2021 06:49:00 PM EDT [facility] Name Value Range Interpretation Code Description Data Source(s) WEIGHT 104 kilos 104 kilos [facility] HEIGHT 167.64 centimeters 167.64 centimeter [facility] ID Date Data Source [id number] 05/14/2021 05:46:00 PM EDT [facility] Name Value Range Interpretation Code Description Data Source(s) WE[facility] 104.545 [facility].64 centimeters 167.64 centimeter [facility] ID Date Data Source [id number] 05/05/2021 08:15:00 PM EDT [facility] Name Value Range Interpretation Code Description Data Source(s) Weight Measurement Method 8 8 [facility] Weight 3680 3680 [facility] pital Temperature Source 7 7 [facility] Temperature 99.1 99.1 [facility] spital Respiratory Effort 1 1 [facility] Respiratory Rate 18 18 [facility] Pulse Assessment Method [address] [facility] Pulse Rate 66 66 [facility] Height 66 66 [facility] pital Blood Pressure 128/55 128/55 [facility] ID Date Data Source [id number] 05/14/2021 12:07:00 PM EDT [facility] Name Value Range Interpretation Code Description Data Source(s) WEIGHT 104 kilos 104 kilos [facility] HEIGHT 167.64 centimeters 167.64 centimeter [facility] ID Date Data Source [id number] 05/01/2021 09:46:00 AM EDT [facility] Name Value Range Interpretation Code Description Data Source(s) Weight Measurement Method 8 8 [facility] Weight 3668.492 3668.492 [facility] pital Temperature 98.4 98.4 [facility] spital Respiratory Rate 16 16 [facility] Pulse Assessment Method [address] [facility] Pulse Rate 68 68 [facility] Height 66 66 [facility] Blood Pressure 113/59 113/59 [facility] Weight Measurement Method 8 8 [facility] Weight 3668.492 3668.492 [facility] Height 66 66 [facility] pital ID Date Data Source [id number] 05/01/2021 01:52:00 AM EDT [facility] spital Name Value Range Interpretation Code Description Data Source(s) Weight Measurement Method 8 8 [facility] Weight 3679.991 3679.991 [facility] pital Respiratory Effort 1 1 [facility] Respiratory Rate 18 18 [facility] Height 66 66 [facility] pital Weight Measurement Method 8 8 [facility] Weight 3679.991 3679.991 [facility] pital Respiratory Effort 1 1 [facility] Respiratory Rate 18 18 [facility] Height 66 66 [facility] pital ID Date Data Source [id number] 05/07/2021 10:54:00 AM EDT [facility] spital Name Value Range Interpretation Code Description Data Source(s) Weight Measurement Method 8 8 [facility] Weight 3680 3680 [facility] pital Temperature Source 7 7 [facility] Temperature 98.8 98.8 [facility] spital Respiratory Effort 1 1 [facility] Respiratory Rate 18 18 [facility] Pulse Assessment Method 4 [address] [facility] 103 [facility] 66 [facility] pital Blood Pressure 162/60 162/60 [facility] ID Date Data Source [id number] 05/13/2021 02:42:00 PM EDT [facility] Name Value Range Interpretation Code Description Data Source(s) WEIGHT 150 kilos 150 kilos [facility] HEIGHT 172.72 centimeters 172.72 centimeter [facility] ID Date Data Source [id number] 05/13/2021 02:02:00 PM EDT [facility] Name Value Range Interpretation Code Description Data Source(s) WEIGHT 136.6 kilos 136.6 kilos [facility] HEIGHT 167.64 centimeters 167.64 centimeter [facility] WEIGHT 303 kilos 303 kilos [facility] HEIGHT 167.64 centimeters 167.64 centimeter [facility] ID Date Data Source [id number] 04/24/2021 11:09:00 AM EDT [facility] Name Value Range Interpretation Code Description Data Source(s) Weight Measurement Method 8 8 [facility] Weight 3680 3680 [facility] pital Temperature Source 7 7 [facility] Temperature 98.0 98.0 [facility] Respiratory Effort 1 1 [facility] Respiratory Rate 18 18 [facility] Pulse Assessment Method 4 [address] [facility] Pulse Rate 88 88 [facility] pital Height 66 66 [facility] pital Blood Pressure 147/57 147/57 [facility] ID Date Data Source [id number] 04/28/2021 04:53:00 PM EDT [facility] Name Value Range Interpretation Code Description Data Source(s) Weight Measurement Method 8 8 [facility] Weight 3679.074 3679.074 [facility] pital Temperature Source 7 7 [facility] Temperature 98.2 98.2 [facility] Respiratory Effort 1 1 [facility] Respiratory Rate 16 16 [facility] Pulse Assessment Method 4 [address] [facility] Pulse Rate 80 80 [facility] pital Height 66 66 [facility] pital Blood Pressure 132/72 132/72 [facility] ID Date Data Source [id number] 04/16/2021 12:24:00 PM EDT [facility] Name Value Range Interpretation Code Description Data Source(s) Weight Measurement Method 8 8 [facility] Weight 3680 3680 [facility] pital Temperature Source 7 7 [facility] Temperature 98.1 98.1 [facility] Respiratory Effort 1 1 [facility] Respiratory Rate 16 16 [facility] Pulse Assessment Method 4 [address] [facility] Pulse Rate 98 98 [facility] pital Height 66 66 [facility] pital Blood Pressure 111/58 111/58 [facility] Weight Measurement Method 8 8 [facility] Weight 3680 3680 [facility] pital Temperature Source 7 7 [facility] Temperature 98.1 98.1 [facility] Respiratory Effort 1 1 [facility] Respiratory Rate 16 16 [facility] Pulse Assessment Method 4 [address] [facility] Pulse Rate 98 98 [facility] pital Height 66 66 [facility] pital Blood Pressure 111/58 111/58 [facility] ID Date Data Source [id number] 04/19/2021 01:44:00 AM EDT [facility] Name Value Range Interpretation Code Description Data Source(s) WEIGHT 105 kilos 105 kilos [facility] HEIGHT 167.64 centimeters 167.64 centimeter [facility] ID Date Data Source [id number] 04/19/2021 01:44:00 AM EDT [facility] Name Value Range Interpretation Code Description Data Source(s) WEIGHT 131 kilos 131 kilos [facility] HEIGHT 170.18 centimeters 170.18 centimeter [facility] ID Date Data Source [id number] 05/11/2021 06:14:00 PM EDT [facility] Name Value Range Interpretation Code Description Data Source(s) Weight Measurement Method 8 8 [facility] Weight 3520 3520 [facility] pital Temperature Source 7 7 [facility] Temperature 97.4 97.4 [facility] spital Respiratory Effort 1 1 [facility] Respiratory Rate 18 18 [facility] Pulse Assessment Method 4 [address] [facility] Pulse Rate 94 94 [facility] pital Height 66 66 [facility] pital Blood Pressure 136/75 136/75 [facility] Weight Measurement Method 8 8 [facility] Weight 3520 3520 [facility] pital Temperature Source 1 1 [facility] Temperature 98.5 98.5 [facility] spital Respiratory Effort 1 1 [facility] Respiratory Rate 16 16 [facility] Pulse Assessment Method 4 [address] [facility] Pulse Rate 86 86 [facility] pital Height 66 66 [facility] pital Blood Pressure 131/98 131/98 [facility] Weight Measurement Method 8 8 [facility] Weight 3520 3520 [facility] pital Temperature Source 1 1 [facility] Temperature 98.5 98.5 [facility] Respiratory Effort 1 1 [facility] Respiratory Rate 18 18 [facility] Pulse Assessment Method 4 [address] [facility] Pulse Rate 108 108 [facility] pital Height 66 66 [facility] pital Blood Pressure 131/92 131/92 [facility] ID Date Data Source [id number] 05/09/2021 04:32:00 PM EDT [facility] Name Value Range Interpretation Code Description Data Source(s) Weight Measurement Method 8 8 [facility] Weight 3680 3680 [facility] pital Temperature Source 7 7 [facility] 99.0 99.0 [facility] Res[facility] Effort 1 1 [facility] Respiratory Rate 18 18 [facility] Pulse Assessment Method 4 [address] [facility] Pulse Rate 102 102 [facility] pital Height 66 66 [facility] pital Blood Pressure 141/79 141/79 [facility] Weight Measurement Method 8 8 [facility] Weight 3680 3680 [facility] pital Temperature Source 7 7 [facility] Temperature 98 98 [facility] Res[facility] Effort 1 1 [facility] Respiratory Rate 16 16 [facility] Pulse Assessment Method 4 [address] [facility] Pulse Rate 122 122 [facility] pital Height 66 66 [facility] pital Blood Pressure 149/85 149/85 [facility] ID Date Data Source [id number] 03/25/2021 07:15:08 AM EDT [facility] Name Value Range Interpretation Code Description Data Source(s) TRANSFER FROM [facility] ID Date Data Source [id number] 05/09/2021 04:49:00 PM EDT [place] [facility] Name Value Range Interpretation Code Description Data Source(s) Weight Measurement Method 8 8 [facility] Weight 3680 3680 [facility] pital Temperature Source 7 7 [facility] Temperature 97.3 97.3 [facility] Respiratory Rate 18 18 [facility] Pulse Rate 106 106 [facility] Height 66 66 [facility] Blood Pressure 122/83 122/83 [facility] Weight Measurement Method 8 8 [facility] Weight 3680 3680 [facility] pital Temperature Source 7 7 [facility] Temperature 97.3 97.3 [facility] Respiratory Rate 18 18 [facility] Pulse Rate 106 106 [facility] Height 66 66 [facility] Blood Pressure 122/83 122/83 [facility] ID Date Data Source [id number] 05/10/2021 06:49:00 PM EDT [place] [facility] Name Value Range Interpretation Code Description Data Source(s) Weight Measurement Method 8 8 [facility] Weight 3680 3680 [facility] pital Temperature Source 7 7 [facility] Temperature 99.8 99.8 [facility] Respiratory Effort 1 1 [facility] Respiratory Rate 18 18 [facility] Pulse Rate 117 117 [facility] pital Height 66 66 [facility] pital Blood Pressure 142/72 142/72 [facility] Weight Measurement Method 8 8 [facility] Weight 3680 3680 [facility] pital Temperature Source 7 7 [facility] Temperature 99.8 99.8 [facility] Respiratory Effort 1 1 [facility] Respiratory Rate 18 18 [facility] Pulse Rate 117 117 [facility] pital Height 66 66 [facility] pital Blood Pressure 142/72 142/72 [facility] ID Date Data Source [id number] 05/09/2021 02:14:00 PM EDT [facility] Name Value Range Interpretation Code Description Data Source(s) Weight Measurement Method 8 8 [facility] Weight 3680 3680 [facility] pital Temperature Source 7 7 [facility] Temperature 97.3 97.3 [facility] Res[facility] Rate 16 16 [facility] Pulse Assessment Method 4 [address] [facility] Pulse Rate 68 68 [facility] pital Height 66 66 [facility] pital Blood Pressure 113/59 113/59 [facility] Weight Measurement Method 8 8 [facility] Weight 3680 3680 [facility] pital Temperature Source 7 7 [facility] Temperature 98.7 98.7 [facility] spital Respiratory Rate 20 20 [facility] Pulse Rate 110 110 [facility] pital Height 66 66 [facility] pital Blood Pressure 135/70 135/70 [facility] ID Date Data Source [id number] 05/10/2021 09:58:00 AM EDT [facility] spital Name Value Range Interpretation Code Description Data Source(s) Weight Measurement Method 8 8 [facility] Weight 3680 3680 [facility] pital Temperature Source 7 7 [facility] Temperature 98.4 98.4 [facility] spital Respiratory Effort 1 1 [facility] Respiratory Rate 16 16 [facility] Pulse Assessment Method [address] [facility] Pulse Rate 78 78 [facility] pital Height 66 66 [facility] pital Blood Pressure 129/88 129/88 [facility] Weight Measurement Method 8 8 [facility] Weight 8113.011 8113.011 [facility] pital Temperature Source 7 7 [facility] Temperature 98.4 98.4 [facility] spital Respiratory Effort 1 1 [facility] Respiratory Rate 18 18 [facility] Pulse Assessment Method [address] [facility] Pulse Rate 109 109 [facility] pital Height 66 66 [facility] pital Blood Pressure 145/74 145/74 [facility] ID Date Data Source [id number] 02/26/2021 08:59:13 AM EDT [facility] Hospital Name Value Range Interpretation Code Description Data Source(s) TRANSFER FROM [facility] ID Date Data Source [id number] 05/09/2021 08:17:00 PM [facility]T [facility] Name Value Range Interpretation Code Description Data Source(s) Weight Measurement Method 8 8 [facility] Weight 3680 3680 [facility] pital Temperature Source 7 7 [facility] Temperature 98.3 98.3 [facility] spital Respiratory Effort 1 1 [facility] Respiratory Rate 20 20 [facility] Pulse Assessment Method [address] [facility] Pulse Rate 108 108 [facility] pital Height 66 66 [facility] pital Blood Pressure 124/58 124/58 [facility] Weight Measurement Method 8 8 [facility] Weight 3680 3680 [facility] pital Temperature Source 7 7 [facility] Temperature 96.7 96.7 [facility] spital Respiratory Effort 1 1 [facility] Respiratory Rate 18 18 [facility] Pulse Assessment Method [address] [facility] Pulse Rate 94 94 [facility] pital Height 66 66 [facility] pital Blood Pressure 126/81 126/81 [facility] Weight Measurement Method 8 8 [facility] Weight 3680 3680 [facility] pital Temperature Source 7 7 [facility] Temperature 96.7 96.7 [facility] spital Respiratory Effort 1 1 [facility] Respiratory Rate 18 18 [facility] Pulse Assessment Method [address] [facility] Pulse Rate 94 94 [facility] pital Height 66 66 [facility] pital Blood Pressure 126/81 126/81 [facility] ID Date Data Source [id number] 04/19/2021 01:44:00 AM EDT [facility] Name Value Range Interpretation Code Description Data Source(s) WEIGHT 136.6 kilos 136.6 kilos [facility] HEIGHT 170.18 centimeters 170.18 centimeter s [facility] WEIGHT 137.7 kilos 137.7 kilos [facility] HEIGHT 170.18 centimeters 170.18 centimeter s [facility] WEIGHT 137.2 kilos 137.2 kilos [facility] HEIGHT 170.18 centimeters 170.18 centimeter s [facility] WEIGHT 137.2 kilos 137.2 kilos [facility] HEIGHT 152.4 centimeters 152.4 centimeters [facility] WEIGHT 137.2 kilos 137.2 kilos [facility] HEIGHT 170.18 centimeters 170.18 centimeter s [facility] WEIGHT 134.5 kilos 134.5 kilos [facility] HEIGHT 170.18 centimeters 170.18 centimeter s [facility] ID Date Data Source [id number] 04/19/2021 01:44:00 AM EDT [facility] Name Value Range Interpretation Code Description Data Source(s) WEIGHT 136.3 kilos 136.3 kilos [facility] HEIGHT 152.4 centimeters 152.4 centimeters [facility] WEIGHT 136.3 kilos 136.3 kilos [facility] HEIGHT 170.18 centimeters 170.18 centimeter s [facility] WEIGHT 136.8 kilos 136.8 kilos [facility] HEIGHT 170.18 centimeters 170.18 centimeter s [facility] WEIGHT 131.5 kilos 131.5 kilos [facility] HEIGHT 170.18 centimeters 170.18 centimeter s [facility] WEIGHT 128.8 kilos 128.8 kilos [facility] HEIGHT 170.18 centimeters 170.18 centimeter [facility] WEIGHT 126.8 kilos 126.8 kilos [facility] HEIGHT 170.18 centimeters 170.18 centimeter s [facility] WEIGHT 124 kilos 124 kilos [facility] HEIGHT 170.18 centimeters 170.18 centimeter s [facility] ID Date Data Source [id number] 10/29/2020 09:38:25 PM EDT [facility] Hospital Name Value Range Interpretation Code Description Data Source(s) PREFERRED NAME Romel Urena [facility] TRANSFER FROM [facility] ID Date Data Source [id number] 04/19/2021 01:44:00 AM EDT [facility] Name Value Range Interpretation Code Description Data Source(s) WEIGHT 124 kilos 124 kilos [facility] HEIGHT 167.64 centimeters 167.64 centimeter s [facility] ID Date Data Source [id number] 07/18/2020 09:56:40 PM EST [facility] Hospital Name Value Range Interpretation Code Description Data Source(s) PREFERRED NAME Romel Urena [facility] TRANSFER FROM [facility] ID Date Data Source [id number] 04/19/2021 01:43:00 AM EDT [facility] Name Value Range Interpretation Code Description Data Source(s) WEIGHT 122.8 kilos 122.8 kilos [facility] HEIGHT 167.64 centimeters 167.64 centimeter s [facility] WEIGHT 100 kilos 100 kilos [facility] HEIGHT 167.64 centimeters 167.64 [facility]imeter [facility] ID Date Data Source [id number] 04/19/2021 01:43:00 AM EDT [facility] Name Value Range Interpretation Code Description Data Source(s) WEIGHT 124.2 kilos 124.2 kilos [facility] HEIGHT 167.64 centimeters 167.64 centimeter s [facility] WEIGHT 123.4 kilos 123.4 kilos [facility] HEIGHT 167.64 centimeters 167.64 centimeter [facility] WEIGHT 123.9 kilos 123.9 kilos [facility] HEIGHT 167.64 centimeters 167.64 centimeter s [facility] WEIGHT 123.9 kilos 123.9 kilos [facility] HEIGHT 152.4 centimeters 152.4 centimeters [facility] WEIGHT 119.6 kilos 119.6 kilos [facility] HEIGHT 167.64 centimeters 167.64 centimeter s [facility] WEIGHT 118.2 kilos 118.2 kilos [facility] HEIGHT 167.64 centimeters 167.64 centimeter s [facility] WEIGHT 112.6 kilos 112.6 kilos [facility] HEIGHT 167.64 centimeters 167.64 centimeter [facility] WEIGHT 100 kilos [facility]ilos [facility] HEIGHT 167.64 centimeters 167.64 centimeter s [facility] ID Date Data Source [id number] 04/19/2021 01:43:00 AM EDT [facility] Name Value Range Interpretation Code Description Data Source(s) WEIGHT 100 kilos 100 kilos [facility] HEIGHT 167.64 centimeters 167.64 centimeter s [facility] ID Date Data Source [id number] 04/19/2021 01:43:00 AM EDT [facility] Name Value Range Interpretation Code Description Data Source(s) WEIGHT 110 kilos 110 kilos [facility] HEIGHT 167.64 centimeters 167.64 centimeter [facility] WEIGHT 100 kilos 100 kilos [facility] HEIGHT 167.64 centimeters 167.64 centimeter [facility] ID Date Data Source [id number] 04/19/2021 01:43:00 AM EDT [facility] Name Value Range Interpretation Code Description Data Source(s) WEIGHT 104.4 kilos 104.4 kilos [facility] ital HEIGHT 152.4 centimeters 152.4 centimeters [facility] WEIGHT 100 kilos 100 kilos [facility] HEIGHT 167.64 centimeters 167.64 centimeter [facility] Patient Treatment Plan of Care Planned Activity Planned Date Details Description Data Source (s) Sertraline 50 MG Oral Tablet 04/07/2021 12:00:00 AM [facility] Prazosin 1 MG Oral Capsule 04/05/2021 10:00:00 PM [facility] Ondansetron 4 MG Disintegrating Oral Tablet 04/05/2021 06:25:36 AM [facility] Magnesium Hydroxide 80 MG/ML Oral Suspension 04/05/2021 06:25:35 AM [facility] Aluminum Hydroxide 40 MG/ML / Magnesium Hydroxide 40 MG/ML / Simethicone 4 MG/ML Oral Suspension 04/05/2021 06:25:35 AM [facility] Melatonin 5 MG Oral Tablet 04/05/2021 06:25:23 AM [facility] aripiprazole 10 MG Oral Tablet 03/25/2021 12:00:00 AM [facility] Escitalopram 5 MG Oral Tablet 03/15/2021 12:00:00 AM [facility] Prazosin 2 MG Oral Capsule 03/15/2021 12:00:00 AM [facility] topiramate 25 MG Oral Tablet 02/26/2021 12:00:00 AM [facility] Sertraline 50 MG Oral Tablet 02/26/2021 12:00:00 AM [facility] Loratadine 10 MG Oral Tablet 02/26/2021 12:00:00 AM [facility] Lurasidone Hydrochloride 80 MG Oral Tablet 02/26/2021 12:00:00 AM E [facility] topiramate 25 MG Oral Tablet 02/26/2021 12:00:00 AM [facility] Sertraline 50 MG Oral Tablet 02/26/2021 12:00:00 AM [facility] Lurasidone Hydrochloride 80 MG Oral Tablet 02/26/2021 12:00:00 AM E [facility] Loratadine 10 MG Oral Tablet 02/26/2021 12:00:00 AM [facility] Propranolol Hydrochloride 10 MG Oral Tablet 02/25/2021 12:00:00 AM [facility] Prazosin 2 MG Oral Capsule 02/25/2021 12:00:00 AM [facility] montelukast 10 MG Oral Tablet 02/25/2021 12:00:00 AM [facility] Trazodone Hydrochloride 50 MG Oral Tablet 02/25/2021 12:00:00 AM [facility] Pravastatin Sodium 20 MG Oral Tablet 02/25/2021 12:00:00 AM [facility] Trazodone Hydrochloride 50 MG Oral Tablet 02/25/2021 12:00:00 AM [facility] Propranolol Hydrochloride 10 MG Oral Tablet 02/25/2021 12:00:00 AM [facility] Prazosin 2 MG Oral Capsule 02/25/2021 12:00:00 AM [facility] Pravastatin Sodium 20 MG Oral Tablet 02/25/2021 12:00:00 AM [facility] montelukast 10 MG Oral Tablet 02/25/2021 12:00:00 AM [facility] chlorproMAZINE (THORAZINE) 50 MG/2ML injection 02/22/2021 05:23:23 PM [facility] diphenhydrAMINE (BENADRYL) 50 MG/ML injection 02/22/2021 05:23:16 P M [facility] Hydroxyzine Hydrochloride 50 MG Oral Tablet 02/21/2021 08:18:25 PM [facility] Magnesium Hydroxide 80 MG/ML Oral Suspension 02/21/2021 08:18:18 PM [facility] 2 ML aripiprazole 200 MG/ML Prefilled Syringe [Abilify ] 06/18/2020 12:00:00 AM [facility] ospital duloxetine 30 MG Delayed Release Oral Capsule 12/28/2019 12:00:00 A M [facility] Sertraline [address] [facility] Propranolol Hydrochloride [address] [facility] Prazosin 1 MG Oral Capsule [facility] Ondansetron [address] [facility] Citalopram [address] [facility]
[2021-05-17] MEDS ORDERED: NS 1,000 ML IV ONE (03:05)
[2021-05-17 03:25] LABS: ABG BASE EXCESS -3.7 (-2.0-2.0); ABG HCO3 22.4 MEQ/L (22.0-26.0); ABG O2 SATURATION 29.6 % (95.0-99.0); ABG PARTIAL PRESSURE CO2 44.5 mmHg (35.0-45.0); ABG STANDARD HCO3 20.1 MEQ/L (22.0-26.0); ABG TOTAL CO2 23.8 MEQ/L (22.0-29.0)
[2021-05-17 03:28] LABS: ABG PARTIAL PRESSURE O2 21.1 mmHg (75.0-100.0)
[2021-05-17 03:44] LABS: BASO % 0.4 % (0.0-1.0); EOS # 0.1 10^3/uL (0.0-0.5); EOS % 0.9 % (0.0-3.0); HEMATOCRIT 36.6 % (36.0-47.0); HEMOGLOBIN 11.9 g/dl (12.0-15.5); LYMPH # 2.4 10^3/uL (1.5-5.0); LYMPH % 29.6 % (24.0-44.0); MEAN CORPUSCULAR HEMOGLOBIN 29.5 pg (27.0-33.0); MEAN CORPUSCULAR HGB CONC 32.5 g/dl (32.0-36.5); MEAN CORPUSCULAR VOLUME 90.6 fl (80.0-96.0); MONO # 0.6 10^3/uL (0.0-0.8); NEUTROPHILS # 4.9 10^3/uL (1.5-8.5); NEUTROPHILS % 60.7 % (36.0-66.0); PLATELET COUNT, AUTOMATED 249 10^3/uL (150-450); RED BLOOD COUNT 4.04 10^6/uL (4.00-5.40)
[2021-05-17] MEDS ORDERED: diphenhydrAMINE 50MG/ML VIAL (J1200) IM ONE (03:50)
[2021-05-17] MEDS ORDERED: LORazepam 2 MG/ML VIAL IM ONE (03:50)
[2021-05-17] MEDS ORDERED: HALOPERIDOL 5MG/ML VIAL (J1630 PER 1) IM ONE (03:50)
[2021-05-17 04:24] LABS: ACETAMINOPHEN LEVEL < 2.0 UG/ML (10.0-30.0); ALBUMIN 3.4 GM/DL (3.2-5.2); ALT/SGPT 53 U/L (12-78); BILIRUBIN,DIRECT < 0.1 MG/DL (0.0-0.2); BILIRUBIN,TOTAL 0.2 MG/DL (0.2-1.0); BLOOD UREA NITROGEN 15 MG/DL (7-18); CALCIUM LEVEL 8.6 MG/DL (8.5-10.1); CARBON DIOXIDE LEVEL 24 MEQ/L (21-32); CHLORIDE LEVEL 111 MEQ/L (98-107); CPK CREATINE PHOSPHOKINASE 226 U/L (26-192); CREATININE FOR GFR 0.62 MG/DL (0.55-1.30); ETHYL ALCOHOL (ETHANOL) 0.003 % (0.000-0.010); GLUCOSE, FASTING 99 MG/DL (70-100); POTASSIUM SERUM 3.9 MEQ/L (3.5-5.1); SALICYLATE LEVEL < 1.7 MG/DL (5.0-30.0); SODIUM LEVEL 141 MEQ/L (136-145); TOTAL PROTEIN 7.1 GM/DL (6.4-8.2)
--- OUTSIDE RECORDS SUMMARY | 2021-05-17 06:07 | CCD ---
Author Author [facility] Address Unknown Phone Unavailable Support Name Relationship Address Phone TULIO HUTCHISON Next Of Kin [address] [facility] [address] [place] [address] LIVING, TRANSITIONAL Next Of Kin [address] [place] [address] Unavailable N, PER PT ONE Next Of Kin [address] [facility] [address], [place] [address] WILMAR DUENAS Next Of Kin [address] [place] [address] NO ONE, PATIENT PER Next Of Kin [address] [place] [address] JOAN WOODWARD Next Of Kin Unknown Unavailable Yamileth Aleman Next Of Kin [address] [place] [address] CONTACT, NO Next Of Kin Unknown NO, CONTACT Next Of Kin Unknown U Next Of Kin Unknown Unavailable TLS, RESIDENTS [facility] Next Of Kin [address] [place] [address] Camelia Martinez Next Of Kin [address] [place] [address] UN Next Of Kin Unknown Unavailable none to, list Next Of Kin [address] [facility] [address] [place] [address] ALIZA HATCH Next Of Kin [address] [place] [address] KAREN GODFREY Next Of Kin [address] [place] [address] TL, S Next Of Kin [address] [place] [address] PEPPER TORIBIO Next Of Kin Unknown UE Next Of Kin Unknown Unavailable STEPHROLAPEPPER Next Of Kin [address] [place] [address] S Next Of Kin Unknown Unavailable Mainor HATCH Next Of Kin [address] [place] [address] ST Next Of Kin Unknown Unavailable Jorge HATCH Next Of Kin [address] [place] [address] Care Team Providers Care Pediatric Licensed Practical Nurse Name Role Phone LaBarge, Zeyad Unavailable William [...] NIZAR R AYAN SMITH Unavailable Unavailable NIZARamiro Rubio MD Unavailable Unavailable NIZARamiro Rubio MD Unavailable Unavailable ALBINZARamiro Rubio MD Unavailable Unavailable ALBINZARamiro Rubio MD Unavailable Unavailable Ramiro DIAMOND MD Unavailable Unavailable Ramiro DIAMOND MD Unavailable Unavailable Ramiro DIAMOND MD Unavailable Unavailable Sohail GROVER MD Unavailable Unavailable Sohail GROVER MD Unavailable Unavailable ManDivya baldwin FLUE CLEANER Unavailable Unavailable Cortney, Vish FLUE CLEANER Unavailable Cortney, Vish FLUE CLEANER Unavailable Cortney, Vish FLUE CLEANER Unavailable Mariam HICKS MD Unavailable Unavailable Mariam [...] Unavailable WILLIAM CARREON MD Unavailable Unavailable COLBY, SHINTO Unavailable Unavailable COLBY, SHINTO MD Unavailable Unavailable BOWMAN, SHINTO MD Unavailable Unavailable BOWMAN, SHINTO MD Unavailable Unavailable BOWMAN, SHINTO MD Unavailable Unavailable BOWMAN, SHINTO MD Unavailable Unavailable BOWMAN, SHINTO MD Unavailable Unavailable BOWMAN, SHINTO MD Unavailable Unavailable Estrada, P Velasquez Unavailable [...] K Marky MD Unavailable Unavailable Nicole Kent PMH-FLUE CLEANER Unavailable Unavailable Nicole Kent PMH-FLUE CLEANER Unavailable Unavailable Nicole Kent Tammie PMH-FLUE CLEANER Unavailable Unavailable Nicole Kent PMH-FLUE CLEANER Unavailable Unavailable Nicole Kent PMH-FLUE CLEANER Unavailable Unavailable Donte, K Tammie PMH-FLUE CLEANER Unavailable Unavailable Nicole Kent Tammie PMH-FLUE CLEANER Unavailable Unavailable Nicole Kent Tammie PMH-FLUE CLEANER Unavailable Unavailable Maria De Jesus RIBEIRO Unavailable [...] Gonzalo COLBERT . Unavailable Unavailable Martin Negron FLUE CLEANER Unavailable Unavailable Sohail Muñoz MD Unavailable Unavailable [...] Unavailable Macario, F Zaki PA Unavailable Unavailable Morris, F Zaki PA Unavailable Unavailable Morris, F Zaki PA Unavailable Unavailable Macario, F Zaki PA Unavailable Unavailable Macario, F Zaki PA Unavailable Unavailable Morris, F Zaki PA Unavailable Unavailable Morris, F Zaki PA Unavailable Unavailable Macario, F Zaki PA Unavailable Unavailable Macario, F Zaki PA Unavailable Unavailable ZEGIL, D THERESA INSPECTOR POISING Unavailable Unavailable ZEGIL, D THERESA INSPECTOR POISING Unavailable Unavailable ZEGIL, D THERESA INSPECTOR POISING Unavailable Unavailable AL-Silvio, Ramón MD Unavailable Unavailable [...] is protected by Article 27-F of the [facility] Public Health law. If you continue you may have access to information: Regarding HIV / AIDS; Provided by facilities licensed or operated by the [facility] Office of Mental Health; or Provided by the [facility] Office for People With Developmental Disabilities. If such information is present, then the following [facility] mandated warning applies: This information has [...] Drug allergy Drug allergy risperidone Unknown Reaction [facility] Drug allergy Drug allergy haloperidol (From Haldol) Unknown Reaction [facility] Propensity to adverse reactions to substance Risperdal Risperidone 1 MG Oral Tablet [Risperdal] Active [facility] ([facility]) Drug allergy risperidone risperidone ADDITIONAL U[facility]PECIFIED [facility] Drug allergy haloperidol haloperidol ADDITIONAL UNSPECIFIED [facility] SEASONAL ALLERGIES SEASONAL ALLERGIES [facility] ([facility]) No Allergies No Allergies [facility] ([facility]) No allergies to food No allergies to food [facility] ([facility]) NKDA NKDA [facility] ([facility]) Drug allergy haloperidol [facility]ol [facility] Family History Family Member Name Family Member Gender Family Member Status Date o f Status Description Data Source(s) Unknown Male Condition Family Member ADD / ADHD S [facility] Encounters Encounter Providers Location Date Indications Data Source(s ) Inpatient Attender: DYLAN Michelle er: BROOKLYN ONEILL MDAttender: ZEESHAN GROVER MDAdmitter: BROOKLYN ONEILL MD ER-3RD 05/13/2021 11:10:00 PM EDT - 05/15/2021 11:10:00 AM EDT [facility] Patient discharged. [facility]billable [facility] 05/12/2021 12:00:00 AM EDT [facility] ([facility]) Inpatient Attender: BROOKLYN ONEILL MDAttender: ZEESHAN GROVER MDAdmitter: BROOKLYN ONEILL MD ER-3RD 05/06/2021 02:17:00 PM EDT - 05/08/2021 04:22:00 PM EDT [facility] Patient discharged. Emergency Attender: THERESA BARAHONA [facility] ED-ED 04/12 07:56:00 PM EDT - 05/05/2021 11:21:00 PM EDT suicidal ideation [facility] suicidal ideation Patient discharged. Inpatient Attender: BOGDAN MACIAS MDAtten víctor: DYLAN RIBEIROAttender: BROOKLYN ONEILL MDAttender: KYLIE العلي MDAdmitter: BROOKLYN ONEILL MD ER-3RD 05/01/2021 04:51:00 PM EDT - 05/05/2021 11:59:00 AM EDT [facility] Patient discharged. Emergency Attender: Zaki OWENS ED-ED 01:54:00 AM EDT - 05/01/2021 09:45:00 AM EDT PSYCHIATRIC [facility] PSYCHIATRIC Patient discharged. Emergency Attender: Zaki OWENS ED-ED 11:28:00 PM EDT - 05/01/2021 01:25:00 AM EDT [facility] DEPRESSION Patient discharged. Emergency Attender: Angelica Martinez MDAttender: Angelica Martinez MD ED-ED 04/30/2021 07:03:00 PM EDT - 04/30/2021 10:30:00 PM EDT [facility] DEPRESSION Patient discharged. Inpatient Attender: BOGDAN MACIAS MDAtten víctor: BROOKLYN ONEILL MDAttender: Ramón Levy MDAdmitter: BROOKLYN ONEILL MD ER-3RD 04/27/20 04:51:00 AM EDT - 04/30/2021 02:30:00 PM EDT [facility] Patient discharged. Inpatient Attender: BROOKLYN ONEILL MDAttender: Ramón Levy MDAdmitter: BROOKLYN ONEILL MD ER-3RD 04/26/2021 02:30:00 AM EDT - 04/26/2021 03:15:00 PM EDT [facility] Patient discharged. Emergency Attender: LAUREEN LUIS [id number] 021 01:05:00 PM EDT - 04/24/2021 04:29:00 PM EDT [facility] Patient discharged. Emergency Attender: Zaki OWENS ED-ED 08:53:00 PM EDT - 04/24/2021 11:08:00 AM EDT SUICIDAL THOUGHTS,ANXIETY [facility] SUICIDAL THOUGHTS,ANXIETY Patient discharged. Emergency Attender: Ramón Levy MD ER-ER 1 10:29:00 PM EDT - 04/21/2021 03:43:00 PM EDT [facility] Patient discharged. Emergency Attender: ZEESHAN GROVER MD ER-ER 03/2021 01:17:00 AM EDT - 04/19/2021 02:55:00 PM EDT [facility] Patient discharged. Emergency Attender: KENRICK ZHOU PAAttender: Zaki OWENS ED-ED 04/17/2021 01:21:00 AM EDT - 04/17/2021 01:48:00 PM EDT CONSUMED CLEANING AGENT [facility] CONSUMED CLEANING AGENT Patient discharged. non-billable [facility] 04/14/2021 12:00:00 AM EDT [facility] ([facility]) Emergency Attender: Nils Argueta MD ER-ER 2020 08:28:00 PM EDT - 04/14/2021 04:43:00 PM EDT [facility] Patient discharged. Emergency Attender: THERESA BARAHONA [facility] ED-ED 08/2020 03:11:00 AM EDT - 04/13/2021 06:45:00 PM EDT THINKING OF SELF HARM [facility] THINKING OF SELF HARM Patient discharged. Inpatient Attender: BOGDAN MACIAS MDAttjef víctor: ZEESHAN GROVER MDAdmitter: BOGDAN MACIAS MD ER-3RD 04/09/2021 12:50:00 PM EDT - 04/11/2021 10:46:00 AM EDT [facility] Patient discharged. Inpatient Attender: Deejya OWENS-puffer tender: JOSE HICKS MDAttender: Leeroy NinaoAttender: LEEROY COLBERT .Admitter: JOSE HICKS MDReferrer: JOSE HICKS MD [id number] 04/05/2021 12:00:00 AM EDT - 04/07/2021 12:21:00 PM EDT [facility] suicidal Patient discharged. Emergency Attender: LAUREEN LUIS ES1-CP2 021 11:17:00 PM EDT - 04/04/2021 01:56:00 PM EDT [facility] Patient discharged. Inpatient Attender: BOGDAN Hassan víctor: BROOKLYN ONEILL MDAttender: Nils Argueta MDAdmitter: BROOKLYN ONEILL MD ER-3RD 04/01/2021 0 6:08:00 PM EDT - 04/03/2021 10:22:00 AM EDT [facility] Patient discharged. Emergency Attender: KENRICK ZHOU PAAttender: Zaki OWENS ED-ED 03/27/2021 10:08:00 PM EDT - 03/30/2021 06:15:00 AM EDT SUICIDAL THOUGHTS,ANXIETY [facility] SUICIDAL THOUGHTS,ANXIETY Patient discharged. Emergency Attender: Leeroy RUIZttender: Leeroy OWENS ED-ED 03/25/2021 08:09:00 PM EDT - 03/25/2021 11:25:00 PM EDT MENTAL HEALTH ISSUES [facility] MENTAL HEALTH ISSUES Patient discharged. Inpatient Attender: Velasquez Lemos er: VELASQUEZ Richmondender: TARAH BOWMAN MDAdmitter: TARAH BOWMAN MD [id number] 03/21/2021 02:54:00 AM EDT - 03/24/2021 12:21:00 PM [facility] Patient discharged. Psychiatric Diagnostic Evaluation (Non-Medical) Attender: Rosa larios [facility] 03/20/2021 01:00:00 AM EDT - 03/20/2021 01:00:00 AM EDT [facility] ([facility]) Emergency Attender: THERESA BARAHONA [facility] ED-ED 03/2021 12:32:00 AM EDT - 03/20/2021 01:00:00 AM EDT MENTAL HEALTH ISSUES [facility] MENTAL HEALTH ISSUES Patient discharged. Attender: Zeyad Kovacsremi 03/20/2021 12:00:00 AM EDT [facility] ([facility]) Outpatient Attender: Darren Negron NP 03/17/2021 09:0 7:00 PM EDT Amb Documentation [facility] Amb Documentation Outpatient Attender: Darren Negron NPAdm itter: Divya Orozco NPConsultant: Divya Orozco NP 03/16/2021 09:50:00 PM EDT Suicidal Ideations [facility] Suicidal Ideations Inpatient Attender: Divya Orozco NPAdmitter: Divya gonzales NP 03/16/2021 09:50:00 PM EDT - 03/19/2021 11:43:00 AM EDT [facility] Patient discharged. Outpatient Attender: Vish Barr NPAd mitter: Divya Orozco NPConsultant: Divya Orozco NP 03/16/2021 09:50:00 PM EDT [facility] Ideations [facility] Suicidal Ideations Outpatient Attender: Divya Orozco NPA dmitter: Divya Orozco NPConsultant: Divya Orozco NP 03/16/2021 09:50:00 PM EDT Su[facility] Ideations [facility] Suicidal Ideations Emergency Attender: Anoop Bowman ER-ER 03/16/20 05:07:00 AM EDT - 03/16/2021 07:30:00 PM EDT [facility] Patient discharged. Emergency Attender: Leeroy [...] AM EDT - 03/15/2021 01:22:00 PM EDT [facility] Patient discharged. non-billable [facility] 03/12/2021 12:00:00 AM EDT [facility] ([facility]) Emergency Attender: Leeroy Dawn PAAttender: KENRICK OWENS ED-ED 03/05/2021 06:28:00 PM EDT - 03/06/2021 01:47:00 PM EDT MENTAL HEALTH ISSUES [facility] MENTAL HEALTH ISSUES Patient discharged. Emergency Attender: Ramirez Muñoz MD ED-ED 03/03/20 12:40:00 AM EDT - 03/03/2021 09:59:00 AM EDT MENTAL [facility] MENTAL HEALTH Patient discharged. Emergency Attender: Nils Argueta MD ER-ER 2020 02:30:00 AM EDT - 03/02/2021 11:27:00 AM EDT [facility] Patient discharged. Emergency Attender: Nils Argueta MD ER-ER 2020 09:08:00 PM EDT - 03/01/2021 12:39:00 PM EDT [facility] Patient discharged. Outpatient [address] [place] [address] [id number] Team 02/27/2021 02:45:00 PM EDT [facility] Patient admitted. Inpatient Attender: AYAN Clifton nder: Velsaquez EstradaAttender: VELASQUEZ ESTRADAAdmitter: AYAN DIAMOND MDReferrer: PROVIDER SYSTEM IN [id number] 02/21/2021 12:14:00 PM EDT - 02/25/2021 11:39:00 AM EDT [facility] Patient discharged. Emergency Attender: Ramón Levy MD ER-ER 0 02/20/2021 10:45:00 PM EDT - 02/21/2021 11:44:00 PM EDT [facility] Patient discharged. Emergency Attender: Ramón Levy MD ER-ER 0 02/19/2021 02:28:00 AM EDT - 02/19/2021 10:15:00 AM EDT [facility] Patient discharged. Emergency Attender: Anoop Bowman ER-ER 02/18/20 03:10:00 AM EDT - 02/17/2021 01:54:00 PM EDT [facility] Patient discharged. Emergency Attender: Santiago RajanAttender: Anoop Hayward R-ER 02/15/2021 08:00:00 PM EDT - 02/16/2021 01:02:00 PM EDT [facility] Patient discharged. Emergency Attender: KENRICK OWENS ED-ED 02/14 09:21:00 PM EDT - 02/14/2021 11:01:00 PM EDT VOMITING,DIARRHEA [facility] VOMITING,DIARRHEA Patient discharged. Inpatient Attender: DYLAN Michelle er: BROOKLYN ONEILL MDAttender: AMADA SIMON MDAttender: KYLIE العلي MDAdmitter: AMADA SIMON MD ER-3RD 01/03/2021 11:03:00 AM EDT - 02/13/2021 11:40:00 AM EDT [facility] Patient discharged. Outpatient Attender: Tammie Kent [facility]-FLUE CLEANER [place] zacarias [facility] 11/13/2020 09:30:00 AM EDT - 11/13/2020 09:30:00 AM EDT [facility] ([facility]) Attender: Tammie EVANS-FLUE CLEANER 11/13/2020 12: 00:00 AM EDT [facility] ([facility]) Inpatient Attender: BROOKLYN ONEILL MDAttender: BOGDAN MACIAS MDAttender: KYLIE العلي MDAdmitter: BOGDAN MACIAS MD ER-3RD 10/31/2020 0 8:49:00 AM EDT - 01/01/2021 01:05:00 PM EDT [facility] Patient discharged. Outpatient [id number] 10/29/2020 09:35:[address] [facility] Psych Inpatient Attender: ZEESHAN GROVER MD Attender: BROOKLYN ONEILL MDAttender: ANSHUL STRAUSS MDAdmitter: BROOKLYN ONEILL MD ER-3RD 10:58:00 AM EDT - 10/29/2020 12:50:00 PM EDT [facility] Patient discharged. Extended Individual Psychotherapy - 45 min Attender: [facility]in [facility] 08/27/2020 11:00:00 AM EST - 08/27/2020 11:00:00 AM EST [facility] ([facility]) Attender: [facility] 08/27/2020 12:00:00 AM EST [facility] ([facility]) Psychiatric Diagnostic Evaluation (Non-Medical) Attender: Rosa lairos [facility] 08/23/2020 10:00:00 AM EST - 08/23/2020 10:00:00 AM EST [facility] ([facility]) Attender: [facility] 08/23/2020 12:00:00 AM EST [facility] ([facility]) Outpatient Referrer: FORTUNATO BUTCHER DO 07/11/2020 02 :52:00 PM EST suicide attempt, borderline personality disorder, depression [facility] suicide attempt, borderline personality disorder, depression Extended Individual Psychotherapy - 45 min Attender: Jessica Sotomayor [facility] 06/24/2020 11:00:00 AM EST - 06/24/2020 11:00:00 AM EST [facility] ([facility]) Attender: Fariba Sotomayor 06/24/2020 12:00:00 AM EST [facility] ([facility]) Inpatient Attender: FILI Oliva tender: Nils Argueta MDAttender: NILS ARGUETA MDAdmitter: FILI CANELA MD ER-3RD 06/15/2020 04:05: 00 AM EST - 06/17/2020 01:23:00 PM EST [facility] Patient discharged. Inpatient Attender: BOGDAN Hassan víctor: BROOKLYN ONEILL MDAttender: KYLIE العلي MDAdmitter: BROOKLYN ONEILL MD ER-3RD 12/2019 09:22:00 PM EDT - 05/17/2020 08:58:00 AM [facility] Patient discharged. Inpatient Attender: EDUARDO Salazar MDAttender: BOGDAN MACIAS MDAttender: AMADA SIMON MDAdmitter: AMADA SIMON MD ER-3RD 020 10:06:00 PM EDT - 12/13/2019 10:30:00 AM EDT [facility] Patient discharged. Inpatient Attender: BOGDAN MACIAS MDAtten víctor: FILI CANELA MDAttender: Ramón Anguiano MDAdmitter: BOGDAN MACIAS MD ER-3RD 11/02/2019 10:24:00 AM EDT - 11/08/2019 12:07:00 PM EDT [facility] Patient discharged. Inpatient Attender: BOGDAN MACIAS MDAtten víctor: BROOKLYN ONEILL MDAttender: AMADA SIMON MDAttender: ANSHUL STRAUSS MDAdmitter: AMADA SIMON MD ER-3RD 08/04/2019 06:28:00 PM EST - 08/11/2019 11:25:00 AM [facility] Patient discharged. Emergency Attender: ANSHUL STRAUSS MD ER-ER 1 07/13/2017 06:59:00 PM EDT - 05/18/2018 06:04:00 PM [facility] Emergency Attender: EDUARDO JERRY MD ER-ER 04/12/2018 05:21:00 PM EDT - 04/16/2018 06:48:00 PM EDT [facility] Immunizations Vaccine Date Status Description Data Source(s) COVID-19 VACCINE Sophia 11/12/2020 12:00:00 AM EDT completed [facility] Vaccine Series Complete: YESThis Data wa s Submitted to [facility]. Medications Medication Brand Name Start Date Product Form Dose Route Admi nistrative Instructions Pharmacy Instructions Status Indications Reaction Description Data Source(s) Sertraline 50 MG Oral Tablet sertraline (ZOLOFT) table t 50 mg sertraline (ZOLOFT) tablet 50 mg 04/07/2021 10:45:00 AM EDT 50 mg Oral active 50 mg, Oral, Daily Standard, First dose on 04/07/21 at 1045, For [address] [facility] Medication administered onsite aripiprazole 5 MG Oral Tablet ARIPiprazole (ABILIFY) t ablet 10 mg ARIPiprazole (ABILIFY) tablet 10 mg 04/07/2021 10:45:00 AM EDT 10 mg Oral active 10 mg, Oral, Daily Standard, First dose on 04/07/21 at 1045, For [address] [facility] Medication administered onsite Sertraline 50 MG Oral Tablet Sertraline HCl 50 MG Oral Tablet (ZOLOFT) Sertraline HCl 50 MG Oral Tablet (ZOLOFT) 04/07/2021 12:00:00 AM EDT active Take 50 mg for 2 day s, then increase to 100 mg on 04/10, and increase to 150 mg on 04/13. [facility] olanzapine 5 MG/ML Injectable Solution OLANZapine (ZYP REXA) injection 10 mg OLANZapine (ZYPREXA) injection 10 mg 04/06/2021 10:45:00 PM EDT 10 mg Intramuscular completed 10 mg, Intr amuscular, Once, On 04/06/21 at 2245, For 1 dose
Reconstitute 10 mg vial with 2.1 mL SWFI; resulting solution is ~5 mg/mL; Use within 1 hour following reconstitution.
[facility] Medication administered onsite Prazosin 1 MG Oral Capsule prazosin (MINIPRESS) capsul e 1 mg prazosin (MINIPRESS) capsule 1 mg 04/05/2021 10:00:00 PM EDT 1 mg Oral active 1 mg, Oral, Nightly, First dose on 04/05/21 at 2200, For 30 days
Check vital signs before administering
[facility] Medication administered onsite olanzapine 10 MG Oral Tablet OLANZapine (ZYPREXA) tabl et 10 mg OLANZapine (ZYPREXA) tablet 10 mg 04/05/2021 07:40:57 PM EDT 10 mg Oral active 10 mg, Oral, Every 2 hours PRN, Agitation, MDD 20 mg, Starting on 04/05/21 at 1940, For [address] [facility] Medication administered onsite Ibuprofen 400 MG Oral Tablet ibuprofen (MOTRIN) tablet 400 mg ibuprofen (MOTRIN) tablet 400 mg 04/05/2021 07:34:02 PM EDT 400 mg Oral act shea 400 mg, Oral, Every 6 hours PRN, Moderate Pain (Pain Scale Score 4-6), Headaches, Starting on 04/05/21 at 1934, For 30 days
Take with food.
[facility] Medication administered onsite multivitamin tablet 1 tablet [id number] 04/05/2021 08:00:00 AM EDT 1 {tbl} Oral active 1 tablet, Oral , Daily Standard, First dose on 04/05/21 at 0800, For [address] [facility] Medication administered onsite Nicotine 2 MG Oral Lozenge nicotine (NICORETTE) lozeng e 2 mg nicotine (NICORETTE) lozenge 2 mg 04/05/2021 06:25:36 AM EDT 2 mg Mouth/Th roat active 2 mg, Mouth/Throat, Every 2 hours PRN, Smoking cessation, Starting on 04/05/21 at 0625, For 30 days
Should not be chewed or swallowed; allow to dissolve slowly (~20-30 minutes)
[facility] Medication administered onsite Ondansetron 4 MG Disintegrating Oral Tab let ondansetron (ZOFRAN-ODT) disintegrating tablet 4 mg ondansetron (ZOFRAN-ODT) disintegrating tablet 4 mg 04/05/2021 06:25:36 AM EDT 4 mg Oral active 4 mg, Oral, Every 6 hours PRN, Nausea, Starting on 04/05/21 at 0625, For 30 days
Dissolve on tongue.
[facility] Medication administered onsite Magnesium Hydroxide 80 MG/ML [...] creatinine > 2 notify provider before administering.
[facility] Medication administered onsite Acetaminophen 325 MG Oral [...] mg from all sources in [address]
[facility] Medication administered onsite Hydroxyzine Hydrochloride 50 MG Oral Tablet hydrOXYzin e (ATARAX) tablet 50 mg hydrOXYzine (ATARAX) tablet 50 mg 04/05/2021 06:25:35 AM EDT 50 mg Oral active 50 mg, Oral, Every 6 hours PRN, Anxiety, Sleep, Starting on 04/05/21 at 0625, For [address] [facility] Medication administered onsite Aluminum Hydroxide 40 MG/ML [...] at 0625, For 30 days
MDD [address]
[facility] Medication administered onsite Melatonin 5 MG Oral Tablet melatonin tablet 5 mg melatonin t ablet 5 mg 04/05/2021 06:25:23 AM EDT 5 mg Oral active 5 mg, Oral, Nightly PRN, Sleep, Starting on 04/05/21 at 0625, For [address] [facility] Medication administered onsite aripiprazole 10 MG Oral Tablet ARIPiprazole 10 MG Oral Tablet (ABILIFY) ARIPiprazole 10 MG Oral Tablet (ABILIFY) 03/25/2021 12:00:00 AM EDT 10 mg Oral active Take 1 tablet by mary kay th daily [facility] Escitalopram 5 MG Oral Tablet escitalopram oxalate (LE XAPRO) 5 mg tablet escitalopram oxalate (LEXAPRO) 5 mg tablet 03/15/2021 12:00:00 AM EDT 5 mg oral active anxiety with depression T carmela 1 tablet (5 mg total) by mouth 1 (one) time each day with dinner. [facility] anxiety with depression Prazosin 2 MG Oral Capsule prazosin (MINIPRESS) 2 mg c apsule prazosin (MINIPRESS) 2 mg capsule 03/15/2021 12:00:00 AM EDT 2 mg oral active post traumatic stress disorder Take 1 capsule (2 mg total) by mouth 1 (one) time each day at night. [facility] post traumatic stress disorder Lurasidone Hydrochloride 80 MG Oral Tabl et Lurasidone HCl 80 MG Oral Tablet (LATUDA) Lurasidone HCl 80 MG Oral Tablet (LATUDA) 02/26/2021 12:00:00 AM EDT 80 mg Oral active Take 1 tablet by mouth d [facility] Loratadine 10 MG Oral Tablet Loratadine 10 MG Oral Tab let (CLARITIN) Loratadine 10 MG Oral Tablet (CLARITIN) 02/26/2021 12:00:00 AM EDT 10 mg Oral active Take 1 tablet by mouth daily [facility] Lurasidone Hydrochloride 80 MG Oral Tabl et Lurasidone HCl 80 MG Oral Tablet (LATUDA) Lurasidone HCl 80 MG Oral Tablet (LATUDA) 02/26/2021 12:00:00 AM EDT 80 mg Oral aborted Take 1 tablet by mouth d [facility] topiramate 25 MG Oral Tablet Topiramate 25 MG Oral Tab let (TOPAMAX) Topiramate 25 MG Oral Tablet (TOPAMAX) 02/26/2021 12:00:00 AM EDT 75 mg Oral active Take 3 tablets by mouth daily [facility] Sertraline 50 MG Oral Tablet Sertraline HCl 50 MG Oral Tablet (ZOLOFT) Sertraline HCl 50 MG Oral Tablet (ZOLOFT) 02/26/2021 12:00:00 AM EDT 150 mg Oral aborted Take 3 tablets by mo uth daily [facility] Loratadine 10 MG Oral Tablet Loratadine [...] aborted Take 3 tablets by mouth daily [facility] Sertraline 50 MG Oral Tablet Sertraline HCl 50 MG Oral Tablet (ZOLOFT) Sertraline HCl 50 MG Oral Tablet (ZOLOFT) 02/26/2021 12:00:00 AM EDT 150 mg Oral aborted Take 3 tablets by mo ut daily [facility] Prazosin 2 MG Oral Capsule Prazosin HCl 2 MG Oral Caps ule (MINIPRESS) Prazosin HCl 2 MG Oral Capsule (MINIPRESS) 02/25/2021 12:00:00 AM EDT 2 mg Oral active Take 1 capsule by mouth [facility] Pravastatin Sodium 20 MG Oral Tablet Pra vastatin Sodium 20 MG Oral Tablet (PRAVACHOL) Pravastatin Sodium 20 MG Oral Tablet (PRAVACHOL) 02/25 12:00:00 AM EDT 20 mg Oral active Take 1 tablet by mouth every evening [facility] montelukast 10 MG Oral Tablet Montelukast Sodium 10 MG Oral Tablet (SINGULAIR) Montelukast Sodium 10 MG Oral Tablet (SINGULAIR) 02/25/2021 12:00:00 AM EDT 10 mg Oral active Take 1 tablet by mouth n [facility] montelukast 10 MG Oral Tablet Montelukast Sodium 10 MG Oral Tablet (SINGULAIR) Montelukast Sodium 10 MG Oral Tablet (SINGULAIR) 02/25/2021 12:00:00 AM EDT 10 mg Oral aborted Take 1 tablet by mouth n [facility] Pravastatin Sodium 20 MG Oral Tablet Pra vastatin Sodium 20 MG Oral Tablet (PRAVACHOL) Pravastatin Sodium 20 MG Oral Tablet (PRAVACHOL) 02/25 12:00:00 AM EDT 20 mg Oral aborted Take 1 tablet b y mouth every evening [facility] Prazosin 2 MG Oral Capsule Prazosin HCl 2 MG Oral Caps ule (MINIPRESS) Prazosin HCl 2 MG Oral Capsule (MINIPRESS) 02/25/2021 12:00:00 AM EDT 2 mg Oral aborted Take 1 capsule by mouth nightly [facility] Propranolol Hydrochloride 10 MG Oral Tab let Propranolol HCl 10 MG Oral Tablet (INDERAL) Propranolol HCl 10 MG Oral Tablet (INDERAL) 02/25/2021 12:00:00 AM EDT 10 mg Oral aborted Take 1 tablet by mouth Two Times Daily [facility] Trazodone Hydrochloride 50 MG Oral Table t traZODone HCl 50 MG Oral Tablet (DESYREL) traZODone HCl 50 MG Oral Tablet (DESYREL) 02/25/2021 12:00:0 0 AM EDT 50 mg Oral active Take 1 tablet by mouth nightly as needed for Sleep [facility] Propranolol Hydrochloride 10 MG Oral Tab let Propranolol HCl 10 MG Oral Tablet (INDERAL) Propranolol HCl 10 MG Oral Tablet (INDERAL) 02/25/2021 12:00:00 AM EDT 10 mg Oral active Take 1 tablet by mouth Two Times Daily [facility] Trazodone Hydrochloride 50 MG Oral Table t traZODone HCl 50 MG Oral Tablet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 03/20/2021 12:00:00 AM [facility] Psychiatric Diagnostic Evaluation (Non-Medical) 03/20/2021 12:00:00 AM EDT - 03/20/2021 12:00:00 AM EDT [facility] ([facility]) Psychiatric Diagnostic Evaluation (Non-Medical) 2020 12:00:00 AM EDT [facility] ([facility]) EMERGENCY DEPARTMENT VISIT MODERATE SEVERITY EMERGENCY DEPT VISIT 03/15/2021 12:00:00 AM [facility] Injection, ketorolac tromethamine, per 15 mg 12:00:00 AM [facility] THERAPEUTIC PROPHYLACTIC/DX INJECTION SUBQ/IM THER/PROPH/PAULY G INJ SC/IM 03/06/2021 12:00:00 AM [facility] FIBRIN DGRADJ PRODUCTS D-DIMER QUANTITATIVE FIBRIN DEGRADATI ON QUANT 03/03/2021 12:00:00 AM [facility] AMYLASE ASSAY OF AMYLASE 02/14/2021 12:00:00 AM [facility] LIPASE ASSAY OF LIPASE 02/14/2021 12:00:00 AM [facility] OFFICE OUTPATIENT VISIT 15 MINUTES 11/13 12:00:00 AM EDT - 11/13/2020 12:00:00 AM EDT [facility]IENT VISIT 15 MINUTES 11/13/2020 12:00:00 AM EDT [facility] ([facility]) INTRODUCE COVID19 VACC IN MUSCLE, PERC, NEW TECH 6 11/12/2020 12:00:00 AM [facility] Extended Individual Psychotherapy - 45 min 08/27/2020 12:00:00 AM EST - 08/27/2020 12:00:00 AM EST [facility] ([facility]) Extended Individual Psychotherapy - 45 min 12:00:00 AM EST [facility] ([facility]) Psychiatric Diagnostic Evaluation (Non-Medical) 08/23/2020 12:00:00 AM EST - 08/23/2020 12:00:00 AM EST [facility] ([facility]) Psychiatric Diagnostic Evaluation (Non-Medical) 2020 12:00:00 AM EST [facility] ([facility]) Extended Individual Psychotherapy - 45 min 06/24/2020 12:00:00 AM EST - 06/24/2020 12:00:00 AM EST [facility] ([facility]) Extended Individual Psychotherapy - 45 min 12:00:00 AM EST [facility] ([facility]) Results ID Date Data Source [id number] 05/15/2021 09:57:00 AM EDT [place] [id number] NAME: YARELI HATCH#: [id number] PHYSICIAN: DYLAN RIBEIROACCOUNT #: [id number] ADM. DATE: 05/13/21PATIENT : 00 DISCH. DATE: [50}DISCHARGE SUMMARYMHU discharge planNicotine Replacement TherapySmoking Status Current some day smokeriStopEND ENDDICT: 05/15/2157 Electronically SignedTRANS:05/15/2157 DYLAN RIBEIROTRANS BY:DATE SIGNED:05/15/21TIME SIGNED: [id number] COPY TO: Name Value Range Interpretation Code Description Data Stephanie rce(s) Supporting Document(s) ID Date Data Source [id number] 05/15/2021 09:25:00 AM EDT [place] [id number] DISCHARGE SUMMARYPATIENT NAME: YARELI HATCH MR#: [id number] PHYSICIAN: DYLAN RIBEIROAUTHOR: Dylan Aquino DATE: 05/13/21 #: 3RDDISCHARGE DATE:BprpdwsNgvdlrmpysdrfu29-jule-aiv single white femaleChief Complaint"I had a suicidal thought due to the fact that I lost my cousin"Reason for AdmissionSuicidal ideations with 2 plan; jumping off a bridge or drinking handsanitizer. She also has increased depression and impulsive behaviorsHistory of Presenting Obwykyr95-hial-tya female was brought to the emergency department by [facility] with complaints of suicidal ideations with a plan to jump in front of amoving vehicle or drinking and landscape foreman. Patient did admit upon arrival tot emergency department that she did attempt to drink hand landscape foreman but wasunsuccessful due to staff interventio n at her living facility, [facility]. Uponarrival to the emergency department patient was [...] the PSA. Patient is a resident at [facility] and is on an AOT.Patient met with [...] disorder, depression, and schizoaffective disorder. Patientcurrently attends [facility] and sees Yamileth for a [...] second degree andcharges of disorderly conductHospital CourseHospital Xtcmla09-pyjv-sas female was admitted involuntarily to mental health [...] this. Patient admitted to getting upset at [facility], [facility], because she was [...] cleared in [facility] emergency department [facility] after reviewing her labs and [...] to discharge the [facility] team, her intensive case managers, staff from [facility],Lorraine her AOT coordinator, members from her treatment team at [facility] all joined a video conference to decide the best course oftreatment for the patient as well as take Marilu's request intoconsideration. All parties involved in the meeting decided that it would be agood try for her to go and live with her friend Aroldo, who lives in [place],and to have her services transferred to [facility] as this has been herrequest. It is decided that patient will be discharged from here [facility] to pack up her belongings and sign the paperwork necessary todischarge her from [facility] and staff from [facility] will drive her to her friend Celina in [place]. Lorraine, will transfer all the necessary paperwork andarrange for her services to be completed in [place]. Cata, the treatmentcoordinator, is going to be in contact with her outpatient mental healthproviders in [place] to make the proper arrangements for transfer [...] fairDischarge DispositionPatient is being discharged back to [facility] [place]ExaminationMusculoskeletalMuscle Strength & Tone normalGait normalStation [...] rce(s) Supporting Document(s) ID Date Data Source [id number] 05/14/2021 09:46:00 AM EDT [address] PSYCHIATRIC ASSESSMENTPATIENT NAME: YARELI HATCH MR#: [id number] PHYSICIAN: DYLAN RIBEIROAUTHOR: Dylan Aquino DATE: 05/13/21 RM#: [id number]-ddvb-nze single white femaleChief Complaint"I had a suicidal thought due to the fact that I lost my cousin"Reason for AdmissionSuicidal ideations with 2 plan; jumping off a bridge or drinking handsanitizer. She also has increased depression and impulsive behaviorsHistory of Presenting Iwhqvsv21-irpd-sax female was brought to the emergency department by [facility] with complaints of suicidal ideations with a plan to jump in front of amoving vehicle or drinking and landscape foreman. Patient did admit upon arrival tot emergency department that she did attempt to drink hand landscape foreman but wasunsuccessful due to staff intervention at her living facility, [facility]. Uponarrival to the emergency department patient was [...] the PSA. Patient is a resident at [facility] and is on an AOT.Patient met with [...] why [facility] she stated "they never asked me [...] disorder, depression, and schizoaffective disorder. Patientcurrently attends [facility] and sees Yamileth for a [...] who lives in [facility]. Patient never graduated [...] (5.0 - 8.0) 7.0 05/13 155Ur Specific [place] (1.010 - 1.025) 1.022 05/13 155Urine Protein [...] 05/13 155 Urine Glucose (NEGATIVE) Negative 05/13 [id number]/02 2349 BLOOD: Blood Culture - CANCancelled: Cancelled [...] to have her ownpersonal clothing. Cata, the instructor wastewater treatment plant, will reach out to TLS forcollateral information [...] in agreement shewill be discharged back to [facility].Assessment/PlanDiagnosis1. Major depressive disorderStatus Chronic2. Bipolar disorder3. Borderline [...] rce(s) Supporting Document(s) ID Date Data Source [id number] 05/13/2021 09:59:00 AM EDT [facility] Name Value Range Interpretation Code Description Data Stephanie rce(s) Supporting Document(s) LCOVID-19, CORDELL NEGATIVE [facility] This lab was ordered by [facility] and reported by [facility]. ID Date Data Source [id number] 05/13/2021 10:56:00 AM EDT [facility] Name Value Range Interpretation Code Description Data Stephanie rce(s) Supporting Document(s) COVID-19, CORDELL NEGATIVE NEGATIVE N [facility] Methodology: Isothermal Nucleic Acid Amp [...] Emergency Use Authorization. ID Date Data Source [id number] 05/13/2021 02:58:00 [facility] Name Value Range Interpretation Code Description Data Stephanie rce(s) Supporting Document(s) GLU 96 mg/dL 70-110 [facility] Patients taking Sulfasalazine may have f alsely depressedGlucose levels. Patients taking Sulfapyridine may havefalsely elevated Glucose levels. Patients should be drawnfor Glucose before the initial administration of eitherdrug. BUN 14 mg/dL 7-23 [facility] CRE 0.615 mg/dL 0.500-1.300 [facility] GFR > 60 mL/min [facility] CHLORIDE 109 mmol/L 99-110 [facility] NA 140 mmol/L 136-147 [facility] POTASSIUM 3.8 mmol/L 3.5-5.1 [facility] TCO2 25 mmol/L 20-33 [facility] ANION GAP 9.8 10.0-20.0 L [facility] CA 9.3 mg/dL 8.3-10.7 [facility] ALKALINE PHOS 99 U/L 45-117 [facility] TP 7.3 g/dL 6.0-7.8 [facility] ALB 3.7 g/dL 3.5-5.0 [facility] ESRD Dialysis patient Albumin reference range: 2.9-4.4 g/dL GL 3.6 g/dL 2.3-3.5 H [facility] A/G 1.0 1.0-2.5 [facility] T. BILIRUBIN 0.3 mg/dL 0.1-1.1 [facility] [place] Total Bilirubin is n ot recommended forpatients undergoing treatment with eltrombopag (Promacta)due to the potential for falsely elevated results. ALTI 45 U/L 6-54 [facility] Patients taking Sulfasalazine and/or Sul fapyridine may havefalsely depressed ALT levels. Patients should be drawn forALT before the initial administration of either drug. AST 23 U/L 6-38 [facility] Patients taking Sulfasalazine and/or Sul fapyridine may havefalsely depressed AST levels. Patients should be drawn forAST before the initial administration of either drug. ID Date Data Source [id number] 05/13/2021 02:18:00 AM EDT [facility] Name Value Range Interpretation Code Description Data Stephanie rce(s) Supporting Document(s) WBC 9.13 x10E3/uL 4.0-10.5 [facility] RBC 4.12 x10E6/uL 4.20-5.40 [facility] Hemoglobin 11.9 g/dL 12.0-16.0 [facility] Hematocrit 37.2 % 37.0-47.0 [facility] MCV 90.3 fL 81.0-99.0 [facility] MCH 28.9 pg 27.0-31.0 [facility] MCHC 32.0 g/dL 32.7-35.6 [facility] RDW 12.9 % 11.5-14.0 [facility] Platelet count 241 x10E3/uL 150-450 [facility] ital MPV 9.5 fl 6.9-9.5 [facility] Neutrophils 63.3 % 34-64 [facility] Lymphocytes 27.4 % 25-45 [facility] Monocytes 7.7 % 1.7-10.6 [facility] Eosinophils 1.2 % 0.4-7.0 [facility] Basophils 0.2 % 0.1-2.0 [facility] Imm. Gran. 0.2 % 0.1-2.0 [facility] Abs. Neutro. 5.78 x10E3/uL 1.2-7.6 N [facility] Abs. Lymph. 2.50 x10E3/uL 1.0-3.5 [facility] Abs. [place]. 0.70 x10E3/uL 0.1-1.0 [facility] Abs. Eosin. 0.11 x10E3/uL 0.1-0.7 [facility] Abs. Baso. 0.02 x10E3/uL 0.0-0.1 [facility] Abs. Imm. Gran. 0.02 x10E3/uL 0.0-0.1 [facility] ANRBC% 0 % 0 [facility] ID Date Data Source [id number] 05/13/2021 02:58:00 AM EDT [facility] Name Value Range Interpretation Code Description Data Stephanie rce(s) Supporting Document(s) HCG QUAL SERUM Negative Negative N [facility] l ID Date Data Source [id number] 05/13/2021 02:58:00 AM EDT [facility] Name Value Range Interpretation Code Description Data Stephanie rce(s) Supporting Document(s) ETOH 0.004 g/dL NONE DETECTED H [facility] l ID Date Data Source [id number] 05/13/2021 02:58:00 AM EDT [facility] Name Value Range Interpretation Code Description Data Stephanie rce(s) Supporting Document(s) ACETAMINOPHEN < 2.0 ug/mL 0-30 N [facility] al ID Date Data Source [id number] 05/13/2021 02:58:00 AM EDT [facility] Name Value Range Interpretation Code Description Data Stephanie rce(s) Supporting Document(s) SALICYLATE < 1.7 mg/dL 0.0-20.0 [facility] ID Date Data Source [id number] 05/13/2021 02:41:00 AM EDT [facility] Name Value Range Interpretation Code Description Data Stephanie rce(s) Supporting Document(s) PCP VISTA NEG NEGATIVE [facility] MINIMUM LEVEL OF DETECTION IS 25 ng/ml BENZODIAZEPINES POS NEGATIVE [facility] POSITIVE RESULTS UNCONFIRMEDMINIMUM LEVE L OF DETECTION IS 200 ng/ml COCAINE VISTA NEG NEGATIVE [facility] MINIMUM LEVEL OF DETECTION IS 300 ng/ml AMPHETAMINES NEG NEGATIVE [facility] MINIMUM LEVEL OF DETECTION IS 1000 ng/ml BARBITURATES NEG NEGATIVE [facility] CUTOFF CONCENTRATION IS 200 ng/ml CANNABINOIDS NEG NEGATIVE [facility] CUTOFF CONCENTRATION IS 50 ng/ml METHADONE VISTA NEG NEGATIVE [facility] al MINIMUM LEVEL OF DETECTION IS 300 ng/ml OPIATE VISTA NEG NEGATIVE [facility] MINIMUM DETECTION LEVEL IS 300 ng/ml ID Date Data Source [id number] 05/13/2021 02:30:00 AM EDT [facility] Name Value Range Interpretation Code Description Data Stephanie rce(s) Supporting Document(s) URINE COLOR Yellow [facility] UAPR Turbid [facility] UGLU Negative NEGATIVE [facility] URINE BILIRUBIN Negative NEGATIVE [facility] UKET Negative NEGATIVE [facility] USG 1.022 1.010-1.025 [facility] UBLO Negative NEGATIVE [facility] UpH 7.0 5.0-8.0 [facility] UPRO Negative Negative [facility] UUB 1.0 mg/dL 0.2-1.0 [facility] UNIT Negative Negative [facility] ULEU Trace Negative [facility] ID Date Data Source [id number] 05/13/2021 02:30:00 AM EDT [facility] Name Value Range Interpretation Code Description Data Stephanie rce(s) Supporting Document(s) URINE RBC 0-2 RBCs/HPF NONE SEEN [facility] URINE WBC 0-2 WBCs/HPF NONE SEEN [facility] URINE BACTERIA Few NONE SEEN [facility] l URINE EPI. Moderate NONE SEEN [facility] URINE CRYSTAL MODERATE AMORPHOUS NONE SEEN [facility] ID Date Data Source [id number] 05/14/2021 01:39:00 AM EDT [facility] Physician DocumentationClaxlexy-Naveen Hinkle edical CenterName: Yareli DuvallAge: 20 yrsSex: FemaleDOB: 2000MRN: [id number] Date: 05/13/2021Time: 01:43Account#: [id number] MD: None, noneED Physician Chetan Grover Summary:05/13/21 23:47Hospitalization OrderedHospitalization Status: Inpatient AdmissionbrProvider: Sheila [...] was also said to haveattemptedto consume hand landscape foreman and active self- harm as well. Patient well-known toED stafffor multiple attempts.Historical:- Allergies: Haldol; Risperdal;- Home Meds:1. aripiprazole 400 mg intramuscular suspension,extended release syringe 400 zhxayuh40 days2. ibuprofen 400 mg Oral tablet 1 [...] this patient was aggressivelyattempting to leave the th4ER. Uncooperative. Not following visual redirection, and threatening towardstaff.Patient required both physical and chemical restraints during both of theseepisodes..05/201:55 Order name: Acetaminophen Bycztmo45/0201:55 Order name: CBC with jwjkne35/0201:55 Order name: CMPfw05/201:55 Order name: COVID-19 PROFILE+LABfw11/0201:55 Order name: HYUUeh19:55 Order name: Amqktxqcz33/0201:55 Order name: Salicylate Uaqsftf63/0201:55 Order name: Serum HCG Zkyjpmrvdwdjm93/0201:55 Order name: Triage - Drug Ftizgsgo81/0201:55 Order name: UA:55 Order name: Diet - Mental Health Tray (call dietary); Complete Time:00:: Order name: Belongings List; Complete Time: 00::55 Order name: Document Weight and Height for BMI; Complete Time: 00:: Order name: Mental Health Evaluation; Complete Time: :: Order name: Mental Health Level 3; Complete Time: 00:: Order name: VS q shift; Complete Time: 00:42wDispensed Medications:08:45 Drug: diphenhydrAMINE 50 mg [diphenhydramine 50 mg/mL injection solution(1 mL)] Route: tlmIM; Site: left vastus lateralis;09:54 Follow up: Response: No adverse mobaypodnzt81:46 Drug: LORazepam 2 mg [lorazepam 2 mg/mL injection solution (1 mL)] Route:IM; Site: tlmleft vastus lateralis;09:54 Follow up: Response: No adverse kopimkltkdz16:47 Drug: Geodon 20 mg Route: IM; Site: right deltoid;ef109:54 Follow up: Response: No adverse fenszabfwtk74:35 Drug: Geodon 20 mg [ziprasidone 20 mg/mL (final concentration)intramuscular solution ml4(1 mL)] Route: IM; Site: right gluteus;18:35 Drug: LORazepam 2 mg [lorazepam 2 mg/mL injection solution (1 mL)] Route:IM; Site: xv8avrbd deltoid;18:35 Drug: diphenhydrAMINE 50 mg [diphenhydramine 50 mg/mL injection solution(1 mL)] Route: ml4IM; Site: left deltoid;21:47 Not Given (Patient Refused): Topiramate 75 mg PO :48 Not Given (Patient Refused): Loratadine 10 mg PO rczacs472:48 Not Given (Patient Refused): Montelukast 10 mg PO xlhqna111:48 Not Given (Patient Refused): Propranolol 10 mg PO rcpday274:48 Not Given (Patient Refused): sertraline 50 mg PO :55 CANCELLED (Physician Discretion): Zosyn 3.375 grams IVPB svdlok31/0301:20 Drug: Prazosin 2 mg [prazosin 1 mg capsule (2 caps)] Route: PO;jw501:20 Drug: Propranolol 10 mg [propranolol 10 mg tablet (1 tabs)] Route: PO;rz1Lvykgycyzc:Dispatcher [employer] Magaly Manjarrez RN RN tlmHNils mark MD MD sh6IaewgFortunato humphrey RN RN pb5WozhxwjsAmi Medrano RN RN ef1RZeeshan browne MD MD brWest, JOSE LUIS Mariscal RN fwLync, JOSE LUIS Fink RN da6Quwdrctrqqg: (The following items were deleted from the chart)05/223:55 23:49 Zosyn 3.375 grams IVPB once ordered. brbr23:56 23:49 Call Lab ordered. br br Name Value Range Interpretation Code Description Data Stephanie rce(s) Supporting Document(s) ID Date Data Source [id number] 05/14/2021 01:39:00 AM EDT [facility] Nurse's NotesClaxVA [facility] terName: Yareli DuvallAge: 20 yrsSex: FemaleDOB: 2000MRN: [id number] Date: 05/13/2021Time: 01:43Account#: [id number] [id number] MD: None, noneDiagnosis: Schizophrenia, unspecifiedPresentation:05/201:45 Presenting complaint: Brought in by [facility] Police officers #[id number], #[id number] forcomplaints of ktsuicidal ideation with plan to jump in front of a moving vehicle, alsoattempted todrink hand landscape foreman but was unsuccessful.02:26 International Travel Fever No. Communicable Disease Screen: Negative forfever>/= 100 fwdegrees Fahrenheit. Communicable disease screen is negative. (-) rash orunusual skinlesion (-) travel/contact with traveler (-) respiratory symptoms.Communication.Communication Speaks [place] Citizen? Yes, is preferred language.02:26 Acuity: Triage 2fw02:26 [...] of amount of people live, such as long-term, family care, nursing home, etc?yes. Haveyou traveled to a location with widespread or ongoing COVID-19 community spreadoroutside of [facility]? no Have you traveled internationally or had [...] 400 mg intramuscular suspension,extended release syringe 400 ruegixp09 days2. ibuprofen 400 mg Oral tablet 1 [...] apparent distress at this time. Nochanges from kd1xhgtmsqnxt documented assessment.05/300:38 Reassessment: Patient appears in no apparent distress at this time. Nochanges from rw7ueqpmqnrzp documented assessment.Psychosocial:05/219:29 SAFE Act Report Not Completed. [...] feeling this way because of the deathof hercjuliain. Pt states that she has been feeling suicidal for over a week. Pt deniesHI. Ptstates that her last suicide attempt was in February of 2020 by overdose. Ptdenies selfharm. Pt was last inpatient at [facility] on 05/06/21. Pt states that she seeClaribel Stanley for outpatient services. Pt has a diagnosis [...] 2020 overdose Other: BPD, ADHD.MentalHealth Admissions: 05/06/21, [facility] Current Outpatient Mental HealthServices:Therapist / Agency: [facility]. Living Environment: Family / Home Support: poorThepatient [...] notified ofpatients status at 23:13, Mental Health AIR CARGO SPECIALIST SUPERVISOR made aware of pt status at 22:50,JOSE LUIS Jo. Disposition: Medically cleared for disposition by Dr Grover. PsychiatricConsultis performed by phone with Dr Dylan Ribeiro NP The patient is admitted to [facility].23:15 Legal Status: Patient's legal status will be Emergency: 9.39. Commitmentpapers are nhcompleted. Pt is provided with a copy of her legal status and rights. DSM-V DXAxis Idiagnosis: Schizoaffective D/O [place] II diagnosis: Deferred [place] III diagnosis:None.[place] IV diagnosis: poo impulse control. Poor coping skills. InsurancePre-Certification: Not Required. [facility] Admission Criteria: The patient isexperiencingsuicidal ideation. The patient requires continuous observation and/or controltoprotect self, others or property. The patient's care requires a multi-modaltreatmentplan under close supervision and coordination due to the complexity andseverity of thepatient's symptoms. The patient requires administration and monitoring ofpsychoactivemedications by skilled medical providers due to the side effects of thepsychoactivemedications or significant dosage adjustments. Awaiting transfer to [facility].Transition ofcare to Pt will be escorted by PSA and MHU RN. The patient is not a servicemember ormilitary dependent. [place] Suicide Severity Rating Scale: Suicidal IdeationRating 5;Intensity of Ideations Rating 25; Suicidal Behavior Rating 0.Psych:02:00 Subjective: Patient's mood is sad, Delusions are denied, Hallucinationsare denied nd2Ltwabe thoughts of suicide. Plan for suicide is [...] 97.3; Pulse Ox 96% ;jw511/0201:47 Pain Scale: AdultktED Course:05/201:44 Patient arrived in ED.kt01:45 None, none is Private Physician.kt01:58 Patient has correct armband on for positive identification. Bed in lowposition. Sitter fwat bedside. Verbal reassurance given. Pillow given. Head of bed elevated.02:04 Patient placed in exam room in view of nurse Patient notified of waittime. kt02:06 Zeeshan Grover MD is Attending Physician.br02:26 Triage completed.fw07:28 Appears to be sleeping.tlm07:28 Psychosocial Motivational Speaker.tlm07:28 Sitter at bedside. Diet tray given.tlm07:50 Appears agitated. attempting multiple times to leave through the doors,security tlmofffrancisco hardy is able to redirect her i have offered her something to take edgeambrosio garcia acknowledge documentation writer.07:51 No Physician assisted procedures completed.tlm08:46 Notified [...] role handed off by Danae Ordoñez RN White, Jason, RN isPrimary Nurse. jw523:30 No apparent distress. Resting quietly.jw523:30 Sitter at bedside.jw523:47 Brooklyn Oneill MD is Hospitalizing Provider.br110300:37 No apparent distress. Resting quietly.jw500:38 Sitter at bedside.lw4Ldpxytwmacft Medications:05/208:45 Drug: diphenhydrAMINE 50 mg [diphenhydramine 50 mg/mL injection solution(1 mL)] Route: tlmIM; Site: left vastus lateralis;09:54 Follow up: Response: No adverse flfqhlnbpex25:46 Drug: LORazepam 2 mg [lorazepam 2 mg/ mL injection solution (1 mL)] Route:IM; Site: tlmleft vastus lateralis;09:54 Follow up: Response: No adverse suvypiergiw56:47 Drug: Geodon 20 mg Route: IM; Site: right deltoid;ef109:54 Follow up: Response: No adverse tkuandscjqv02:35 Drug: Geodon 20 mg [ziprasidone 20 mg/mL (final concentration)intramuscular solution ml4(1 mL)] Route: IM; Site: right gluteus;18:35 Drug: LORazepam 2 mg [lorazepam 2 mg/mL injection solution (1 mL)] Route:IM; Site: xe3ypvww deltoid;18:35 Drug: diphenhydrAMINE 50 mg [diphenhydramine 50 mg/mL injection solution(1 mL)] Route: ml4IM; Site: left deltoid;21:47 Not Given (Patient Refused): Topiramate 75 mg PO ohrjuf996:48 Not Given (Patient Refused): Loratadine 10 mg PO aagyfq232:48 Not Given (Patient Refused): Montelukast 10 mg PO wcrunw471:48 Not Given (Patient Refused): Propranolol 10 mg PO hwfymb665:48 Not Given (Patient Refused): sertraline 50 mg PO wqlymh007:55 CANCELLED (Physician Discretion): Zosyn 3.375 grams IVPB qotmes68/0301:20 Drug: Prazosin 2 mg [prazosin 1 mg capsule (2 caps)] Route: PO;jw501:20 Drug: Propranolol 10 mg [propranolol 10 mg tablet (1 tabs)] Route: PO;sn4Omchvfa:05/223:47 Decision to Hospitalize by Provider.br0301:20 Disposition: Admitted to Psych with chart.cx7Jzwugudfq: unchangedInstructed on need for admit, Demonstrated understanding of instructions.Discharge Assessment: Patient verbalized understanding of dispositioninstructions.Patient has no functional deficits.01:39 Patient left the ED.uw7Leahnlphat:Magaly Gray, RN RN tlmTKatelyn cr, RN JOSE LUIS ktWhFortunato humprhey, RN RN ek8QbcznpsrAmi arthur, RN RN uq1DvxgqvuZeeshan browne MD MD brWest, Fayeanne, RN JOSE LUIS fwHolmes, Danae Wright RN JOSE LUIS vv5Hxkxegvatuz: (The following items were deleted from the chart)05/207:28 07:28 Awaiting disposition, :17 23:13 Disposition: Medically cleared for disposition by Dr Grover.Psychiatric Consult [facility]110300:37 00:37 Primary Nurse role handed off by Danae Ordoñez RN qq6cb860:37 00:37 Fortunato Mark, JOSE LUIS is Primary Nurse. dr0dv659:25 05/13 01:00 Subjective: Patient's mood is sad, Delusions are denied,Hallucinations are yf8asiayq Having thoughts of suicide. Plan for suicide is see ntriage jw511/0301:25 05/13 01:00 Objective: Patient is cooperative, Speech is soft, Affect isflat, jw5 jw511/0301:25 05/13 01:00 Interventions: Removed personal items and placed in bag.Patient placed in cy6ezxercsp gown. Searched person for dangerous items. Urine collected and sentfor urinedrug test. Observation Level Level 3 Sitter needed. Provider notified. Nando Charge nurse notified. Fortunato Mark RN Level 3 order placed. jw5 Name Value Range Interpretation Code Description Data Stephanie rce(s) Supporting Document(s) ID Date Data Source [id number] 05/08/2021 12:28:00 PM EDT [place], [place] [address]PATIENT NAME: YARELI HATCH Janette BledsoeRRgoe#: [id number] PHYSICIAN: BROOKLYN ONEILL MDACCOUNT #: [id number] ADM. DATE: 05/06/21PATIENT : 00 DISCH. DATE: [50}DISCHARGE SUMMARYMHU discharge planNicotine Replacement TherapySmoking Status Current some day smokeriStopEND ENDDICT: 05/08/21 1228 Electronically SignedTRANS:05/08/21 1228 DYLAN RIBEIROTRANS BY:DATE SIGNED:05/08/21TIME SIGNED: 1228REPORT COPY TO: Name Value Range Interpretation Code Description Data Stephanie rce(s) Supporting Document(s) ID Date Data Source [id number] 05/08/2021 12:14:00 PM EDT [place] [id number] DISCHARGE SUMMARYPATIENT NAME: YARELI HATCH MR#: [id number] PHYSICIAN: BROOKLYN ONEILL MDAUTHOR: Dylan Aquino DATE: 05/06/21 #: 3RDDISCHARGE DATE:WfwcfnkZvglgblkbnzpkj63-lusv-bab single white femaleChief Complaint"I was impulsive and did something stupid"Reason for AdmissionUnsafe behaviors with a history of poor impulse control and suicidal ideations.Patient was unable to contract for safety prior to admissionHistory of Presenting Demaryg30-zdsp-vwm female who was admitted to mental health on an involuntary statusafter ingesting a bottle of shampoo. Patient was brought here by police aftermyrandae eloped numerous times from [facility]. Upon arrival to [facility] patient stated she was discharged [...] to her [facility] as her place of residence. Patient was also again reminded ofthe vast amount of services she has available to her in the community such [facility] and [facility], case management, counselors and therapists. When [...] female who lives in a supportive housing facility,[facility]. Patient was never graduated from high school [...] second degree and chargesof disorderly conductHospital CourseHospital Ursipz82-fmiy-pof female [facility] on an involuntary status afteracting impulsively, according to her, and swallowed some shampoo. Patient wasmedically cleared to receive psychiatric care from both the attending emergencyroom physician as well as the hospitalist. Patient's laboratory results werereviewed by both the hospitalist and the emergency room physician and cleared.Patient's toxicology screen upon admission was negative for all substances.[facility] patient was on a level for observation [...] planwas worked out with Madelin Michel the instructor wastewater treatment plant, [facility]. At time of discharge patient continues to [...] by opening up to the staff at [facility] shefeels this would be an effective plan [...] is also confirmed by the staff from [facility].Patient's Discharge ConditionVital SignsVital Signs-LastResult Date TimeB/P 132/78 05/08 0822Pulse Ox 99 05/07 1234Temp 97.7 05/07 1234Pulse 63 05/07 1234Resp 16 05/07 1234Patient's Discharge ConditionDischarge Date 05/08/21Discharge Conditon stableDischarge DispositionPatient is to be discharged back to her supportive [facility] of [facility]ExaminationMusculoskeletalMuscle Strength & Tone normalGait normalStation normalMental Status [...] SIGNED: 05/08/21 Electronically SignedTIME SIGNED: 1227 DYLAN - MAXIMILIAN-C RIBEIRO Name Value Range Interpretation Code Description Data Stephanie rce(s) Supporting Document(s) ID Date Data Source [id number] 05/07/2021 05:08:00 PM EDT [place] [id number] HISTORY AND PHYSICALPATIENT NAME: YARELI HATCH MR#: [id number] PHYSICIAN: BROOKLYN ONEILL MDAUTHOR: Ericka Dean MD DATE: 05/06/21 RM#: [id number] Complaint/Admit ReasonIngested shampoo/conditioner to end her lifeHistory of Presenting IllnessHISTORY IS LIMITED THE PT REFUSED TO BE SEEN BY THE MEDICINE UWDDMHO72 yo F who presents to the hospital with police because she ingested shampooand conditoner in an effort to end her life. [facility] and told [facility] she did [...] seen by the medicine serviceExamVital SignsVital Signs-24 HRS05/06157809 9021 0828 1234Temp 97.5 97.7Pulse 77 63Resp 16 16B/P 128/83 123/78 136/84 115/75B/P MeanPulse Ox 96 99O2 DeliveryO2 Flow PcfjTvL4Txnj ReviewLaboratory DataRecent Labs-48 hours05/06070884 0051ChemistrySodium (136 - 147 mmol/L) 139Potassium (3.5 [...] TurbidUrine pH (5.0 - 8.0) 8.0Ur Specific [place] (1.010 - 1.025) 1.022Urine Protein (Negative) TraceUrine [...] psych serviceDATE SIGNED: 05/07/21 Electronically SignedTIME SIGNED: 9844 ERICKA DEAN MD Name Value Range Interpretation Code Description Data Stephanie rce(s) Supporting Document(s) ID Date Data Source [id number] 05/07/2021 12:49:00 PM EDT [address] PSYCHIATRIC ASSESSMENTPATIENT NAME: YARELI HATCH MR#: [id number] PHYSICIAN: BROOKLYN ONEILL MDAUTHOR: Dylan Aquino DATE: 05/06/21 RM#: [id number]-uslz-hkd single white femaleChief Complaint"I was impulsive and did something stupid"Reason for AdmissionUnsafe behaviors with a history of poor impulse control and suicidal ideations.Patient was unable to contract for safety prior to admissionHistory of Presenting Mjrqgmg79-uwpx-zgc female who was admitted to mental health on an involuntary statusafter ingesting a bottle of shampoo. Patient was brought here by police aftershe eloped numerous times from [facility]. Upon arrival [facility] patient stated she was discharged [...] female who lives in a supportive housing facility,[facility]. Patient was never graduated from high school and has 9 or 10th gradeeducation. Patient does have the ability to read and write but what extentthis is unknown. Patient has never had employment nor has she developed anyskills for employment. Patient does not receive support, financially oremotionally, from her adoptive family. Patient does have contact with [employer] family but this is also unsupportive.Abuse HistoryPatient [...] 0051Albumin/Globulin Ratio (1.0 - 2.5) 1.0 05/06 0051HematologyWBC (4.0 - 10.5 x10E3/uL) 8.31 05/06 0051RBC (4.20 - 5.40 x10E6/uL) 4.31 05/06 005Hgb (12.0 - 16.0 g/dL) 12.7 05/06 005Hct [...] (auto) (0.0 - 0.1 x10E3/uL) 0.03 05/06 51Nucleated RBC % (auto) (0 %) 0 05/06erologyCOVID-19 (CORDELL) (NEGATIVE) NEGATIVE 05/06 41ToxicologySalicylates (0.0 - 20.0 mg/dL) < 1.7 05/06 51Opiates Screen (NEGATIVE) NEG 05/06 41Methadone Screen (NEGATIVE) NEG 05/06cetaminophen (0 - 30 ug/mL) < 2.0 05/06arbiturate Screen (NEGATIVE) NEG 05/06hencyclidine Screen (NEGATIVE) NEG 05/06mphetamines Screen (NEGATIVE) NEG 05/06enzodiazepines (NEGATIVE) POS H 05/06ocaine Screen (NEGATIVE) NEG 05/06annabinoids (NEGATIVE) NEG 05/06thyl Alcohol (NONE DETECTED g/dL) 05/06 51UrinesUrine Color Y ellow 05/06 41Urine Appearance Turbid 05/06 41Urine pH (5.0 - 8.0) 8.0 05/06 41Ur Specific [place] (1.010 - 1.025) 1.022 05/06 41Urine Protein [...] will be monitored by staff in [facility] the nurses station for the next [...] medicationuse and the medications efficacy. Madelin, the instructor wastewater treatment plant will be incontact with TLS and the [facility] team Assessment/PlanDiagnosis1. Major depressive disorderStatus Chronic2. Bipolar affective disorderStatus Chronic3. Borderline personality disorderStatus Chronic4. SUICIDAL IDEATIONS; CHRONIC5. Obesity, morbidStatus Chronic6. Allergic rhinitisCoordination of care provided with nursing staff, treatment team, social work,physician'sRisk/benefits discussed side effects, weight gain/lossJustification for continued stay danger to self/othersDATE SIGNED: 05/07/21 Electronically SignedTIME SIGNED: 0528 DYLAN RIBEIRO Name Value Range Interpretation Code Description Data Stephanie rce(s) Supporting Document(s) ID Date Data Source [id number] 05/06/2021 01:31:00 AM EDT [facility] Name Value Range Interpretation Code Description Data Stephanie rce(s) Supporting Document(s) ACETAMINOPHEN < 2.0 ug/mL 0-30 [facility] Date Data Source [id number] 05/06/2021 01:31:00 AM [facility] Name Value Range Interpretation Code Description Data Stephanie rce(s) Supporting Document(s) SALICYLATE < 1.7 mg/dL 0.0-20.0 [facility] ID Date Data Source [id number] 05/06/2021 01:31:00 AM EDT [facility] Name Value Range Interpretation Code Description Data Stephanie rce(s) Supporting Document(s) ETOH NONE DETECTED [facility] NONE DETECTED ID Date Data Source [id number] 05/06/2021 01:31:00 AM EDT [facility] Name Value Range Interpretation Code Description Data Stephanie rce(s) Supporting Document(s) GLU 99 mg/dL 70-110 [facility] Patients taking Sulfasalazine may have f alsely depressedGlucose levels. Patients taking Sulfapyridine may havefalsely elevated Glucose levels. Patients should be drawnfor Glucose before the initial administration of eitherdrug. BUN 13 mg/dL 7-23 [facility] CRE 0.661 mg/dL 0.500-1.300 [facility] GFR > 60 mL/min [facility] CHLORIDE 109 mmol/L 99-110 [facility] NA 139 mmol/L 136-147 [facility] POTASSIUM 3.9 mmol/L 3.5-5.1 [facility] TCO2 25 mmol/L 20-33 [facility] ANION GAP 8.9 10.0-20.0 L [facility] CA 9.3 mg/dL 8.3-10.7 [facility] ALKALINE PHOS 110 U/L 45-117 [facility] TP 8.0 g/dL 6.0-7.8 H [facility] ALB 4.0 g/dL 3.5-5.0 [facility] ESRD Dialysis patient Albumin reference range: 2.9-4.4 g/dL GL 4.0 g/dL 2.3-3.5 [facility] A/G 1.0 1.0-2.5 [facility] T. BILIRUBIN 0.4 mg/dL 0.1-1.1 [facility] [place] Total Bilirubin is n ot recommended forpatients undergoing treatment with eltrombopag (Promacta)due to the potential for falsely elevated results. ALTI 58 U/L 6-54 [facility] Patients taking Sulfasalazine and/or Sul fapyridine may havefalsely depressed ALT levels. Patients should be drawn forALT before the initial administration of either drug. AST 32 U/L 6-38 [facility] Patients taking Sulfasalazine and/or Sul fapyridine may havefalsely depressed AST levels. Patients should be drawn forAST before the initial administration of either drug. ID Date Data Source [id number] 05/06/2021 01:10:00 AM EDT [facility] Name Value Range Interpretation Code Description Data Stephanie rce(s) Supporting Document(s) WBC 8.31 x10E3/uL 4.0-10.5 [facility] RBC 4.31 x10E6/uL 4.20-5.40 [facility] Hemoglobin 12.7 g/dL 12.0-16.0 [facility] Hematocrit 38.3 % 37.0-47.0 [facility] MCV 88.9 fL 81.0-99.0 N [facility] MCH 29.5 pg 27.0-31.0 N [facility] MCHC 33.2 g/dL 32.7-35.6 [facility] RDW 12.5 % 11.5-14.0 N [facility] Platelet count 274 x10E3/uL 150-450 N [facility] ital MPV 9.8 fl 6.9-9.5 H [facility] Neutrophils 69.5 % 34-64 H [facility] Lymphocytes 23.2 % 25-45 L [facility] Monocytes 6.0 % 1.7-10.6 N [facility] Eosinophils 0.5 % 0.4-7.0 N [facility] Basophils 0.4 % 0.1-2.0 N [facility] Imm. Gran. 0.4 % 0.1-2.0 [facility] Abs. Neutro. 5.78 x10E3/uL 1.2-7.6 N [facility] Abs. Lymph. 1.93 x10E3/uL 1.0-3.5 [facility] Abs. [place]. 0.50 x10E3/uL 0.1-1.0 [facility] Abs. Eosin. 0.04 x10E3/uL 0.1-0.7 [facility] Abs. Baso. 0.03 x10E3/uL 0.0-0.1 [facility] Abs. Imm. Gran. 0.03 x10E3/uL 0.0-0.1 [facility] spital ANRBC% 0 % 0 [facility] ID Date Data Source [id number] 05/06/2021 12:41:00 AM EDT [facility] Name Value Range Interpretation Code Description Data Stephanie rce(s) Supporting Document(s) LCOVID-19, [place] NEGATIVE [facility] This lab was ordered by [facility] and reported by [facility]. ID Date Data Source [id number] 05/06/2021 01:27:00 AM EDT [facility] Name Value Range Interpretation Code Description Data Stephanie rce(s) Supporting Document(s) PCP VISTA NEG NEGATIVE [facility] MINIMUM LEVEL OF DETECTION IS 25 ng/ml BENZODIAZEPINES POS NEGATIVE [facility] POSITIVE RESULTS UNCONFIRMEDMINIMUM LEVE L OF DETECTION IS 200 ng/ml COCAINE VISTA NEG NEGATIVE [facility] MINIMUM LEVEL OF DETECTION IS 300 ng/ml AMPHETAMINES NEG NEGATIVE [facility] MINIMUM LEVEL OF DETECTION IS 1000 ng/ml BARBITURATES NEG NEGATIVE [facility] CUTOFF CONCENTRATION IS 200 ng/ml CANNABINOIDS NEG NEGATIVE [facility] CUTOFF CONCENTRATION IS 50 ng/ml METHADONE VISTA NEG NEGATIVE [facility] al MINIMUM LEVEL OF DETECTION IS 300 ng/ml OPIATE VISTA NEG NEGATIVE [facility] MINIMUM DETECTION LEVEL IS 300 ng/ml ID Date Data Source [id number] 05/06/2021 01:25:00 AM EDT [facility] Name Value Range Interpretation Code Description Data Stephanie rce(s) Supporting Document(s) COVID-19, [place] NEGATIVE NEGATIVE [facility] Methodology: Isothermal [...] Emergency Use Authorization. ID Date Data Source [id number] 05/06/2021 01:11:00 AM EDT [facility] Name Value Range Interpretation Code Description Data Stephanie rce(s) Supporting Document(s) HCG QUAL URINE Negative Negative [facility] ID Date Data Source [id number] 05/06/2021 01:11:00 AM EDT [facility] [place] Name Value Range Interpretation Code Description Data Stephanie rce(s) Supporting Document(s) URINE COLOR Yellow [facility] UAPR Turbid [facility] UGLU Negative NEGATIVE [facility] URINE BILIRUBIN Negative [facility]GATIVE [facility] UKET Negative NEGATIVE [facility] USG 1.022 1.010-1.025 [facility] UBLO Negative NEGATIVE [facility] UpH 8.0 5.0-8.0 [facility] UPRO Trace Negative [facility] UUB 1.0 mg/dL 0.2-1.0 [facility] UNIT Negative Negative [facility] ULEU Negative Negative [facility] ID Date Data Source [id number] 05/06/2021 04:51:00 PM EDT [facility] [facility] Physician DocumentationClaxton-Naveen Hinkle edical CenterName: Yareli PatelvallAge: 20 yrsSex: FemaleDOB: 2000MRN: [id number] Date: 05/06/2021Time: 00:32Account#: [id number] 5BPrivate MD:ED Physician Richie العليposition Summary:05/06/21 13:58Hospitalization OrderedHospitalization Status: Inpatient AdmissionseProvider: Raffi OneilleLocation: Mental Health UnitseCondition: StableseProblem: an ongoing problemseSymptoms: [...] 400 mg intramuscular suspension,extended release syringe 400 fombujx07 days2. ibuprofen 400 mg Oral tablet 1 [...] thoughts of suicide. Megestrol drinking shampooisattempt for gnqgniq93:44 Unable to obtain exam due to patient being uncooperative.Vital Signs:00:37 BP 137 / 84; Pulse 84; Resp 16; Temp 97.7; Pulse Ox 99% ; Weight 104.33kg; Height 5 tp2ft. 6 in. ; Pain 0/10;16:31 BP 122 / 83 (auto/); Pulse 77 MON; Resp 18; Pulse Ox 96% ;ef100:37 Body Mass Index 37.12 (104.33 kg, 167.64 cm)tp200:37 Pain Scale: Iobvoox3RSJ:00:47 Patient medically screened.br06:44 Data reviewed: vital signs, nurses notes, EMS record, old medicalrecords, lab test brresult(s).11:37 ED course: Patient has refused to comply with staff, is verbally abusiveand sedisruptive, and is being physically restrained at this time. She has ozcstqcv53 mg ofIM Geodon and will get 2 mg of IM Ativan..04/2600:38 Order name: Acetaminophen Level; Complete Time: 10:05dp846/2610:32 Interpretation: Within normal limits.se04/2600:38 Order name: CBC with diff; Complete Time: 10:99ds324/2610:32 Interpretation: Within normal limits.se04/2600:38 Order name: CMP; Complete Time: 10:14tj717/2610:33 Interpretation: Normal except: TP 8.0; ALTI 58.:38 Order name: COVID-19 PROFILE+LAB; Complete Time: 10:25oo264/2610:33 Interpretation: Within normal limits.:38 Order name: ETOH; Complete Time: 10:93sd856/2610:33 Interpretation: Within normal limits.:38 Order name: Yxvxldvml950/2600:38 Order name: Salicylate Level; Complete Time: 10:98zb644/2610:33 Interpretation: Within normal limits.:38 Order name: Triage - Drug Screen; Complete Time: 10:73zg520/0:33 Interpretation: Normal except: BENZODIAZEPINES POS.:38 Order name: UA; Complete Time: 10:56ra502/2610:33 Interpretation: Within normal limits.:38 Order name: Urine HCG Qualitative; Complete Time: 10:14yo299/2610:33 Interpretation: Within normal limits.:38 Order name: Diet - Mental Health Tray (call dietary); Complete Time:00:42 tp0:38 Order name: Belongings List; Complete Time: 13:79eq830/2600:38 Order name: Document Weight and Height for BMI; Complete Time: 00:34co401/2600:38 Order name: Mental Health Evaluation; Complete Time: 13:05vc700/2600:38 Order name: Mental Health Level 3; Complete Time: 13:46ns700/2600:38 Order name: VS q shift; Complete Time: 00:29gp6Gtghdmmqw Medications:09:23 Drug: Ondansetron 8 mg Route: PO;jl11:41 Fol low up: Response: Nausea is vosoykmlcvr024:29 Drug: Geodon 20 mg Route: IM; Site: left deltoid;ef113:48 Follow up: Response: Anxiety zwabujbahyr454:38 Drug: LORazepam 2 mg Route: IM; Site: right vastus lateralis;ef113:48 Follow up: Response: Anxiety weomfcxtbhh5Ueowbsudwz:Dispatcher [employer] EDMSElliottKylie MD MD seHilborne, Erica RN RN ja3TqKrkseBertha mooney, RN RN jlBreonna Marie, JOSE LUIS AMAYA hu8JovtqqjZeeshan browne MD MD br Name Value Range Interpretation Code Description Data Stephanie rce(s) Supporting Document(s) ID Date Data Source [id number] 05/06/2021 04:51:00 PM EDT [facility] Nurse's NotesClaxVA [facility] Medical Tootie terName: Yareli DuvallAge: 20 yrsSex: FemaleDOB: 2000MRN: [id number] Date: 05/06/2021Time: 00:32Account#: [id number] 5BPrivate MD:Diagnosis: Major depressive disorder, recurrent, unspecified;Borderlinepersonality disorderPresentation:04/2600:34 Presenting complaint: Patient states: discharged from mental health floor05/05/21. de0Alivw a bottle of shampoo. Went [facility] police brought pthere. Ptstates she was not [...] of amount of people live, such as long-term, familycare,nursing home, etc? no. Have you traveled to a location with widespread or ongoingCOVID-19community spread or outside of [facility]? no Have you traveled internationallyor hadcontact with someone that has traveled and has been ill in the past 3 weeks? noHaveyou received the COVID vaccine? No. Communicable Disease Screen: Negative forfever>/=100 degrees Fahrenheit. Communicable disease screen is negative. CommunicationSpeaksEnglish? Yes, is preferred language.00:34 Acuity: Triage 2lx670:34 Acuity Assignment: Triage 4gi014:34 Method Of Arrival: Moarixsc7Rbefyc Assessment:00:36 General: Appears in no apparent distress, Behavior is appropri ate forage, cooperative. aj8Zeivmb Screening: (1)Signs/symptoms infection No. Pain: Denies pain. [...] 400 mg intramuscular suspension,extended release syringe 400 dduvyao42 days2. ibuprofen 400 mg Oral tablet 1 [...] threats or abuse. Denies injuries from another.Nutritional qu8domjwbnan: No deficits noted. Offer of HIV testing: patient was previouslyofferedscreening. Fall Risk None identified.Assessment:00:42 Reassessment: No changes from previously documented assessment.tp211:05 General: pt repeatedly walking out of unit to doorway. does not walk outand easily klpredirected back in. PSA aware.11:29 Reassessment: attempted to elope; uncooperative and attempting to assaultstaff; code us0kgigjt called.11:39 Reassessment: screaming continuing to assault staff; placed in restrains.ef112:30 Reassessment: Patient states feeling better. Patient states symptoms haveimproved. klpreleased from restraints and walked to BR without incident.13:47 Reassessment: Patient appears in no apparent distress at this time.lx3Xbjrloskgxlb:09:59 SAFE Act Report Not Completed. Intervention: Observation Level 3. Mentalhealth consult [facility] initiated at 09:59.10:46 Referral Information: Evaluation referral is generated by a policeagency: [facility]. The patient was referred for evaluation because Pt states she drank abottle ofshcentinela [facility] last night and that she was brought to [facility] where she elopedand wasbrought here on a pickup order.11:02 Subjective: The patients chief complaint is Pt presents to the ED withState [facility] the pt [facility], pt states she currently lives at [facility] and does not know if they [...] kill herself. Pt states she was transported [facility] where she eloped three times. Pt states on the third [place] her apartment where the State Police had a pickup order tobring thept to [facility] for a psych evaluation. Pt states [...] [facility] [place] [facility] and has herfirstintake appointment with them on Wednesday (05/09). Pt denies legal issues. Ptdeniesaccess to guns. Delusions are denied, Hallucinations are denied. Patient's moodisdepressed, Having thoughts of suicide. Denies suicidal plan.11:49 Patient reports history of anxiety, Bipolar Disorder, Depression, panicattacks, nhpost-traumatic stress disorder, self -mutilation, sleep disturbance, suicideattempt:Overdose in February 2020 Mental Health Admissions: multiple admissions, czopVWKD32 Current Outpatient Mental Health Services: Therapist / Agency:[facility]. Living Environment: Family / Home [...] by screaming at them, andthreatening to elope ak(which the pt did a few times prior). Pt was brought to an ED room where shecontinuedto be aggressive towards staff. Vanesa Richard was called at approximately 1122AM. Pt wasoffered [...] off the bridge when I eloped from [facility]." Pt isstill inrestraints and calmed down at this time. Pt is being monitored by staff andvitals arebeing taken every 15 minutes.15:39 Notification to family of patient status is not currently needed orappropriate. nhConsultation: Psych MD informed of patient's status at 13:10, ED MD notified ofpatients status at 13:30, Mental Health AIR CAR[employer] SPECIALIST SUPERVISOR made aware of pt status at 13:15.Disposition: Medically cleared for disposition by Dr العلي. PsychiatricConsult isperformed by phone with Dr Oneill The patient is admitted to [facility].LegalStatus: Patient's legal status will be Emergency: 9.39. Commitment papers arecompleted. Pt has been provided with their legal status and rights. DSM-V DXAxis Idiagnosis: Major Depressive D/O [place] II diagnosis: Deferred [place] III diagnosis:None.[place] IV diagnosis: poor coping skills/poor impulse control. InsurancePre-Certification: Not Required. [facility] Admission Criteria: The patient has had asuicideattempt [...] Transition of careto Ptwill be transported to [facility] with PSA and MHW.16:22 [place] Suicide Severity Rating Scale: Suicidal Ideation Rating 5;Intensity of kk9Spzfubfoo Rating 25; Suicidal Behavior Rating 0.Psych:00:37 Subjective: Patient's mood is sad, Delusions are denied, Hallucinationsare denied so7Uwdfoy thoughts of suicide. Denies suicidal plan. Objective: [...] 37.12 (104.33 kg, 167.64 cm)tp200:37 Pain Scale: Cltmrjr3AX Course:00:33 Patient arrived in ED.tp200:34 Triage completed.tp200:42 Patient has correct armband on for positive identification. Placed ingown. Bed in low jj4udyheqkj. Call light in reach. Sitter at bedside.00:42 No Physician assisted procedures completed.tp200:46 Zeeshan Grover MD is Attending Physician.br00:47 Breonna Marie RN is Primary Nurse.tp210:32 Attending Physician role handed off by Zeeshan Grover MDse10:32 Kylie العلي MD is Attending Physician.se13:47 Appears to be sleeping.ef113:57 Brooklyn Oneill MD is Hospitalizing Provider.seAdministered Medications:09:23 Drug: Ondansetron 8 mg Route: PO;jl11:41 Follow up: Response: Nausea is ehaazdxgkhn435:29 Drug: Geodon 20 mg Route: IM; Site: left deltoid;ef113:48 Follow up: Response: Anxiety jxnnneumlrv621:38 Drug: LORazepam 2 mg Route: IM; Site: right vastus lateralis;ef113:48 Follow up: Response: Anxiety fmnlgxjheuu4Wuyfduc:13:58 Decision to Hospitalize by Provider.se16:09 Disposition: Admitted to Ibeoiem412:09 Condition: stable, Provider notified of abnormal vital signs.16:09 Discharge instructions given to patient, Instructed on need for admit,Demonstratedunderstanding of instructions.16:09 Discharge Assessment: Patient verbalized understanding of dispositioninstructions.Patient has no functional deficits.16:51 Patient left the ED.gj1Oahvsagspp:Елена Hugo RN RN klpElliott, Suzanne, MD MD seHilborne, Erica, RN RN ou4TaMnhvvBertha Collier RN RN jlPutney, Taylor, RN RN tp2RZeeshan browne MD MD brHolmes, Nicole nhMoyer, Pearl to9Ezcvmyljfxh: (The following items were deleted from the chart)00:49 00:34 Presenting complaint: Patient states: discharged from [facility] tp21. Drank a bottle of shampoo. Went to [facility]. tp211:05 10:46 Referral Information: Evaluation referral is generated by a policeagency: [facility]. The patient was referred for evaluation because Pt states she drank abottle ofshampoo last night and that she was brought to [facility] where she elopedand wasbrought here on a pickup order ak11:48 11:02 Subjective: The patients chief [facility], pt states she currently lives at [facility] [place] and does not know if they will accept her back there. Ptstatesher "maybe" not being let back there is stressing her out. Pt admits at 1845 PMlastnight she drank a regular bottle of shampoo and conditioner. ak11:56 11:02 Subjective: The patients chief complaint is Pt presents to [facility] on a pickup order due to the pt drinking [facility] During [facility], pt states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 150-450 N [facility] ital MPV 10.1 fl 6.9-9.5 H [facility] Neutrophils 59.9 % 34-64 N [facility] Lymphocytes 31.9 % 25-45 N [facility] Monocytes 6.6 % 1.7-10.6 [facility] Eosinophils 1.0 % 0.4-7.0 [facility] Basophils 0.2 % 0.1-2.0 N [facility] Imm. Gran. 0.4 % 0.1-2.0 [facility] Abs. Neutro. 5.89 x10E3/uL 1.2-7.6 [facility] Abs. Lymph. 3.14 x10E3/uL 1.0-3.5 [facility] Abs. [place]. 0.65 x10E3/uL 0.1-1.0 [facility] Abs. Eosin. 0.10 x10E3/uL 0.1-0.7 [facility] Abs. Baso. 0.02 x10E3/uL 0.0-0.1 [facility] Abs. Imm. Gran. 0.04 x10E3/uL 0.0-0.1 N [facility] spital ANRBC% 0 % 0 N [facility] ID Date Data Source [id number] 04/26/2021 05:06:00 AM EDT [facility] Physician DocumentationClaxton-Naveen Hinkle edical CenterName: Yareli DuvallAge: 20 yrsSex: FemaleDOB: 2000MRN: [id number] Date: 04/25/2021Time: 23:15Account#: [id number] MD: NONE, - Per PatientED Physician Ab Pires Summary:04/26/21 03:21Hospitalization OrderedHospitalization Status: Inpatient Idjhwbjcwhg1Fhreyazh: Chava OneillLocation: Mental Health Wktdnw2Mtbxnuapw: Llbcorjh8Pgpaxlb: an ongoing bjcxprtag5Jtbmkuod: are andvqgkmphz8Mtoy Assignment:sc0Nmddyzspc- Schizoaffective disorder, iircskxhybbuo4Eunurvoazc Information- Admission Type: Inpatient Status.rw1Yhoso:- Medication Reconciliationna1- SBARna1- Medication Reconciliation Form - 2nd Copyna1- Psych. SRJTqg3KHI:04/1603:21 This 20 yrs old White Female presents [...] 400 mg intramuscular suspension,extended release syringe 400 eluqreg93 days3. ibuprofen 400 mg Oral tablet 1 [...] for drug dependence, alcohol de pendence, auditoryhallucinations, nn0utqceb hallucinations, homicidal ideation. All other systems are negative.Exam:03:22 Head/Face: Normocephalic, atraumatic. Eyes: Pupils equal round andreactive to light, pt0fjkxn-wewyjd motions intact. Lids and lashes normal. Conjunctiva [...] Patient having thoughts of suicide. Delusions/hallucinations arenotpresent.Vital Signs:04/1523: Pulse 72; Resp 18; Temp 97.8; Pulse [...] ATION & CHF, RESP. FAILURE WITHHYPOXEMIA & is4AIBKYCNEQBO. PT. HAD 500 ML. 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 IN ED, SOLUMDEROL 80 MG IV, HE IS FEELING BETTER, IN MILD RESP.DISTRESS.PLAN TO ADMIT TO HOSPITALIST SERVICE--DR. SERRANO. PT. AGREABLE WITHADMISSION..04/1523:33 Order name: Acetaminophen Level; Complete Time: 01::33 Order name: C BC with diff; Complete Time: ::33 Order name: CMP; Complete Time: 01::33 Order name: COVID-19 PROFILE+LAB; Complete Time: ::33 Order name: ETOH; Complete Time: ::33 Order name: Xsecjcjrk939/1523:33 Order name: Salicylate Level; Complete Time: 01::33 Order name: Triage - Drug Screen; Complete Time: 01::33 Order name: UA; Complete Time: 01::33 Order name: Urine HCG Qualitative; Complete Time: 01::33 Order name: Diet - Mental Health Tray (call dietary); Complete Time:02:42 :33 Order name: Belongings Lqpgeo744/1523:33 Order name: Document Weight and Height for BMI; Complete Time: 02::33 Order name: Mental Health Evaluation; Complete Time: 02::33 Order name: Mental Health Level 3; Complete Time: 02::33 Order name: VS q shift; Complete Time: 02:1601:12 Order name: Medically Cleared for Eval by-Psychosocial, Motivational Speaker (.PSA);Complete Time: na102:42Dispensed Medications:No medications were administeredSignatures:Dispatcher [employer] Ramón Beverly MD MD gd3UovmbFortunato humphrey RN RN jw5 Name Value Range Interpretation Code Description Data Stephanie rce(s) Supporting Document(s) ID Date Data Source [id number] 04/26/2021 05:06:00 AM EDT [facility] Nurse's NotesCl[facility] Tootie terName: Yareli DuvallAge: 20 yrsSex: FemaleDOB: 2000MRN: [id number] Date: 04/25/2021Time: 23:15Account#: [id number] M1Ubtasts MD: NONE, - Per PatientDiagnosis: Schizoaffective disorder, unspecifiedPresentation:04/1523:17 Presenting complaint: [facility] ta[facility]jaypapssbc due to suicidal threats brought on by [...] a large of amount ofpeoplelive, such as long-term, family care, nursing home, etc? no. Have you traveled to community health systemswith widespread or ongoing COVID-19 community spread or outside of [facility]? noHaveyou traveled internationally or had contact with someone that has traveled andhas beenill in the past 3 weeks? no Have you received the COVID vaccine? Yes.CommunicableDisease Screen: Negative for fever>/= 100 degrees Fahrenheit. Communicablediseasescreen is negative. (-) rash or unusual skin lesion (-) travel/contact withtraveler(-) respiratory symptoms. Communication Speaks [place] Citizen? Yes, is preferredlanguage.23:17 Acuity: Triage 6wz349:17 Method Of Arrival: Vkqypfdf420:19 Acuity Assignment: Triage 6na8Mnahsv Assessment:23:21 General: Appears in no apparent distress, Behavior is anxious,cooperative. Sepsis jx0Soyjpkyrk: (1)Signs/symptoms infection No. Pain: Denies pain. PSS-3 [...] 400 mg intramuscular suspension,extended release syringe 400 jamaqcs25 days3. ibuprofen 400 mg Oral tablet 1 [...] threats or abuse. Denies injuries from another.Nutritional gk5cqxrygwdo: No deficits noted. Offer of HIV testing: patient was previouslyofferedscreening. Fall Risk None identified.Assessment:00:59 Reassessment: see triage.jw501:05 Reassessment: Patient went to bathroom then walked out the ER doors andonto the ER dc5xdeb refused to come inside, [employer] called and patient walked back in with patientplacedin restraints as per MD order without incident Patient remained in site at alltimes..02:00 Reassessment: Patient appears in no apparent distress at this time.Patient calm and ja4ivlhyqunwtq at this time.02:15 Reassessment: Patient removed from restraints without incident.jw504:32 Reassessment: Patient appears in no apparent distress at this time.ti3Wkjwwibtkqvn:00:54 SAFE Act Report Not Completed. Intervention: Observation [...] removed. Pt reports that her aunt in [place] just .Shestarted crying saying that she is suicidal and wants help but feels no one willhelpher. Pt reports that she has the plans to either overdose or hang herself. Ptreportsthat she feels that she needs exterminator helper treatment because she feels nothingelse isworking. Pt has a long history of being inpatient for mental health at multipledifferent facilities. Pt was last inpatient at [facility] was April 09, 2021. Pthas adiagnosis of Anxiety, Depression, Borderline Personality Disorder. Pt denies HIandhallucinations. Delusions are denied, Hallucinations are denied. Patient's moodisdepressed, Having thoughts of suicide. Plan for suicide is overdose or hangself.01:05 Narrative PSA spoke to Zohra at [facility] [phone] who states that the pttells them dy8esqv she is suicidal every day and she does not understand what is going on.She statesthat this is an every day thing with going to a hospital and gets gettingdischarged.She states that they are lost of what to do at this point and feel [facility].01:13 Patient reports history of anxiety, Bipolar Disorder, Depression, self-mutilation, op5Umutc: BPD. Mental Health Admissions: multiple at multiple facilities last [facility] was04[facility]21 Current Outpatient Mental Health Ser vices: Therapist / Agency:Grayson/Zev at [facility]. Living Environment: Family / Home Support: fair Thepatientcurrently lives in a [facility] apartment. The patient is single. Detox / [...] took it from pt. Shewent to the ih3zhcukyaz then left the ED on the ramp, refusing to come inside. [employer]PD was called.Pt wasput in 4 point restraints.02:40 Transfer plan is communicated to Zohra at [facility]. Consultation: Psych MDinformed of ld7outyrpb's status at 02:00, ED MD notified of patients status at 02:40, MentalHealth ERRN made aware of pt status at 02:15. Disposition: Medically cleared fordisposition byDr Levy. Psychiatric Consult is performed by phone with Dr Dylan Clark NPThepatient is admitted to [facility] Patient report is given to Comfort AMAYA. LegalStatus:Patient's legal status will be Emergency: 939. Commitment papers arecompleted. pt hasbeen provided with the copy of her legal status and rights. DSM-V DX [place] Idiagnosis:Schizoaffective D/O. Insurance Pre-Certification: Not Required. [facility] AdmissionCriteria: The patient is experiencing suicidal ideation. The patient requirescontinuous observation and/or control to protect self, others or property. Thepatient's care requires a multi-modal treatment plan under close supervisionandcoordination due to the complexity and severity of the patient's symptoms. Thepatientrequires administration and monitoring of psychoactive medications by skilledmedicalproviders due to the side effects of the psychoactive medications orsignificant dosageadjustments. Awaiting transfer to [facility]. Transition of care to pt will beescorted byPSA and security. The patient is not a sales and service advisor or dependent.ColumbiaSuicide Severity Rating Scale: Suicidal Ideation Rating 5; Intensity ofIdeationsRating 25; Suicidal Behavior Rating 0.Psych:04/1523:32 Subjective: Patient's mood is sad, Delusions are denied, Hallucinationsare denied ob2Tidnjj thoughts of suicide. Plan for suicide is hang self or OD. Objective:Patient iscooperative, Speech is normal, Affect is appropriate. Interventions: Removedpersonalitems and placed in bag. Patient placed in hospital gown. Searched person fordangerousitems. Observation Level Level 3 Sitter needed. Provider notified. [facility] nurse notified. Fortunato Mark RN Level 3 [...] for positive identification. Placed ingown. Sitter at xo7jmmzrei.01:00 No Physician assisted procedures completed.jw501:09 Ramón Levy MD is Attending Physician.na102:00 Sitter at bedside.jw503:20 Brooklyn Oneill MD is Hospitalizing Provider.na104:33 Sitter at bedside.qc4Vhwbfumgtywz Medications:No medications were administeredOutcome:03:21 Decision to Hospitalize by Provider.na105:05 Disposition: Admitted to Psych with chart.jw505:05 Condition: yodlogvkm61:05 Instructed on need for admit.05:05 Discharge Assessment: Patient verbalized understanding of dispositioninstructions.Patient has no functional deficits.05:06 Patient left the ED.zs4Mrskpqeyiw:Ramón Levy MD MD xa8NxehwFortunato humphrey, RN RN jo1Rsceilyo, Usha og3Yvxjkeukvjr: (The following items were deleted from the chart)01:01 00:54 Subjective: The patients chief complaint is Pt presents to the EDas a walk in tp6ofxv [employer] for suicidal ideations. Pt had left ED and went on ramp. OPD wascalled tohelp talk to the pt. Pt did agree to come back inside. Pt took her sheet andwrapped itaround her neck. Sheet was removed. Pt reports that her aunt in [place] justpassedaway. She started crying saying that she is suicidal and wants help but feelsno onewill help her. Pt reports that she has the plans to either overdose or hangherself. Ptreports that she feels that she needs exterminator helper treatment because she feelsnothiadyranelse is wo rking. Pt has a long history of [facility]. Pt was last inpatient at [facility] . sm802:44 01:15 Narrative Pt walked to bathroom then left ED on ramp. Pt came backin. sm8 sm8 Name Value Range Interpretation Code Description Data Stephanie rce(s) Supporting Document(s) ID Date Data Source [id number] 04/25/2021 11:05:00 PM EDT [facility] Name Value Range Interpretation Code Description Data Stephanie rce(s) Supporting Document(s) LCOVID-19, CORDELL NEGATIVE [facility] This lab was ordered by [facility] and reported by [facility]. ID Date Data Source [id number] 04/26/2021 12:17:00 AM EDT [facility] Name Value Range Interpretation Code Description Data Stephanie rce(s) Supporting Document(s) COVID-19, CORDELL NEGATIVE NEGATIVE [facility] Methodology: Isothermal Nucleic Acid Amp [...] Emergency Use Authorization. ID Date Data Source [id number] 04/24/2021 03:18:28 PM EDT [facility]PATIE NT INFORMATIONPatient MRN Name Date of Age Gend*PT [id number] Yareli Hatch 00 20 years M CPEPPT Location Admission Date/Time Visit ID Attending ProviderNONE 04/24/21 1315 --- Laureen Luis MD([id number]) EPI ID CSN Admitting Provider [id number] Attestation signed by Laureen Luis MD at 04/24/2021 3:18 PMInitial time of commencing Psychiatrist whbg-ea-unro encounter with patient:04/24/21 1440 : Laureen Luis MDI have examined the patient, qihy-et-dxpo, and have personally participated inperforming a psychiatric [...] Name: Yareli Galindo at CPEP: 04/24/21 1305Psych FLUE CLEANER First Contact: Yes (04/24/21 1331 : Aysha Valles NP)Chief ComplaintChief ComplaintPatient presents with Psychiatric Evaluation Pt's name is Daisy, he/him pronouns. Transferred via EMS [facility] presenting for SI w/o plan. Lives in transitional living. Was [facility] ago. Presents often to [facility] for SI per ED staff.Current StressorsCurrent Stressors: Pyschiatric SymptomsHistory of Present IllnessThe patient is a 20-year-old transgender individual (biological female,identifies as male gender, prefers he/him pronouns, preferred name "Daisy"). Thepatient was transferred to [facility] from [facility] ED in [facility] to reports of vague suicidal ideation/passive [...] back to the ER until they place [facility] an new detention". Thus, these "suicidal statements" appear to be made huyen conditional basis if new housing is secured. Patient is fully connected withoutpatient mental health treatment providers, and an AOT order in [facility] (AOT coordinator is Laureen Alarcon ([phone]) and case managers Taye ([phone]). [facility] also [facility], Mr. Grayson Farley. Has a psychiatricprescriber but patient cannot recall the prescribers name, reports compliancewith medication. Patient resides in a supervised housing program, staffadministers medications at scheduled intervals. Patient denies use of illicitdrugs and does not drink alcohol (UDS obtained at [facility] EDn egative). Patient does add that there is another stressor of pending legalcharges from reportedly assaulting a nurse, resulting in harassment charge, [facility]. Patient has been calm and cooperative at [facility],exhibits strong features of personality disorder with [...] today, [facility] as he does not currently meet criteria forinpatient psychiatric hospitalization. Patient expressed understanding of thisthough tells me that he will likely represent to another ED (not for any acuteproblem, cites housing as primary stressor). Social work consult has beenordered, case discussed with CPEP team including RN, social media marketing analyst and .Treatment plan goals to be addressed and resolved with social media marketing analyst, see notes.Addendum: I spoke with patient's AOT coordinator Ms. Lorraine Alarcon. Susanxplains that patient is a former [facility] resident, now she is a [facility] resident as she lives in this transitional living facilitywith 24/7 staff in this [facility]. Laureen gives approval for patient to go torespite. Patient specifically requesting [facility] ([place], [place]) [facility] ([place], [place]). Laureen is aware that [facility] is [facility], Lorriane states that this is fine if the respite facility is [facility], Medicaid transportation will bring her back to her communityresidence in [facility] when needed. Ms. Alarcon would like to beupdated when a final disposition is made, she can be reached at [phone].Patient InfoHistory provided by: patient, medical recordsLanguage per diem interpreter used?: NoHPI: Mental Health ProblemPresenting Symptoms: anxiety (Made vague suicidal statements conditional on ifcecil is discharged back to her community residence or not, states she would notbe suicidal if she stays in the hospital or goes to a respite facility, no planor intent to harm self or others, no psychosis)Patient accompanied by: (Sent from [facility] ED)Degree of incapacity (severity) : mildTiming: rareProgression: improvingChronicity: chronicContext : Current interpersonal stressorTreatment compliance: all of the timeRelieved by: antipsychotics, mood stabilizersIneffective Treatments: none triedAssociated symptoms: irritabilityRisk factors: (borderline personality disorder)Care Coordination/CollateralObtained, see above.HistoryPast Psychiatric HistoryOutside Treatment HistoryTreatment History Location Date of Last Tx Type of Tx Tx Reason/Dx Tx Length of Stay Tx helpful?Drug/Alcohol Rehab? Records Requested? Comments [facility] March 2019 Inpatient Suicidal thoughts 24 hours No [facility] 2017 Inpatient Suicidal thoughts 1 year [facility] 2008 Inpatient SI a few months [facility] [...] Memory: IntactInsight: GoodJudgment: Good (Adequate)Orientation: Appropriately Oriented j2Rnrbijpw Toward Examiner: CooperativeAssociations: No loosening evidentFund of [...] end yourlife)? 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 reported to mainframe analyst that she "drank some mouthwash" 3weeks ago [...] to the hospital because he dislikes his detention, wants usto get a new detention for him, future and goal oriented, no [...] goals to beaddressed and resolved with social media marketing analyst, see notesPlan/Assessment #2: No medication changes, c ontinue home medication regimen asprescribedPlan/Assessment #3: Chart reviewed, [facility] marketing [facility] (social work consult ordered)General Treatment Plan - GOAL: The patient will have stabilization of presentingsymptoms in order to progress towards discharge from [facility] and have identifiedthe resources available until outpatient follow up.OBJECTIVE: The patient will be assisted with support resources post discharge:While at [facility], the RN or farmworker cranberry will have a one on one conversation withthe patient to verbally identify their individual supports post discharge.,While at [facility], the RN or Pmp will have a one on one conversation withthe patient to verbally identify whom to contact for collateral information andobtain patient consent in writing., While at [facility], the RN or Pmp willhave a one on one conversation with the patient to verbally identify what followup resources will be most beneficial to the patient., While at [facility], the RN orSocial Worker will have a one on one conversation with the patient to verballyidentify any of their perceived and/or actual barriers to post discharge care.,While at [facility], the RN or Pmp will have a one on one conversation withthe patient to verbally explain the Mobile Crisis Outreach Team and encouragepatient to follow up with an appointment.Anxiety Treatment Plan - GOAL: The patient will have stabilization ofpresenting symptoms in order to progress towards discharge from CPEP and haveidentified the resources available until outpatient follow up.OBJECTIVE: The patient will have reduced overall frequency, intensity, andduration of anxiety so that activities of daily living are not impaired while atCPEP.: While at CPEP, the RN or farmworker cranberry will have a one on oneconversation with the patient to verbally identify their triggers for anxiety.,While at CPEP, the RN or Pmp will have a one on one conversation [...] No changes [] No side effectsBilling Code: [id number] signed byLonnie Villegas Rzdyblxtjdsq20/14/21 1459Lonnie Villegas Itufapvlnbsp87/14/21 1500 Name Value Range Interpretation Code Description Data Stephanie rce(s) Supporting Document(s) ID Date Data Source [id number] 04/23/2021 10:55:00 PM EDT [facility] Name Value Range Interpretation Code Description Data Stephanie rce(s) Supporting Document(s) Respiratory specimen severe acute respir atory syndrome coronavirus 2 (SARS-CoV-2) RNA Negative (qualifier value) [facility] This lab was ordered by [facility] and reported by . ID Date Data Source [id number] 04/23/2021 11:18:00 PM EDT [facility] Name Value Range Interpretation Code Description Data Stephanie rce(s) Supporting Document(s) SARS-CoV-2 RNA Negative Normal (applies to non-numeric r esults) [facility] Negative results should be treated as pr [...] Certificate of Accreditation. Factsheets for healthcare providers: https://www.fda.gov/media/379035/download Factsheets for patients: https://www.fda.gov/media/341662/download The ID NOW Instrument is a rapid molecular in vitro diagnostic test utilizing an isothermal nucleic acid amplification technology intended for the qualitative detection of nucleic acid from the SARS-CoV-2 viral RNA. THIS IS A STATE REPORTABLE COMMUNICABLE DISEASE. Manual entry verified by Megan Murphy 04/23/21 2317 ID Date Data Source [id number] 04/23/2021 10:16:00 PM [facility] Name Value Range Interpretation Code Description Data Stephanie rce(s) Supporting Document(s) Troponin I 0.000-0.056 Normal (applies to non-numeric resu lts) [facility] ID Date Data Source [id number] 04/23/2021 10:16:00 PM [facility] Name Value Range Interpretation Code Description Data Stephanie rce(s) Supporting Document(s) Sodium 141 mmol/L 136-145 Normal (applies to non-numeric resul ts) [facility] Potassium 3.5-5.1 Normal (applies to non-numeric resul ts) [facility] Chloride 106 mmol/L 98-107 Normal (applies to non-numeric resul ts) [facility] Carbon Dioxide CO2 21-32 Normal (applies to non-numer ic results) [facility] Anion Gap 5.0-16.0 Normal (applies to non-numeric resul ts) [facility] BUN 18 mg/dL 7-18 Normal (applies to non-numeric results) [facility] Creatinine,Serum 0.7-1.2 Normal (applies to non-numeric results) [facility] GFR >60 Normal (applies to non-numeric results) [facility] Glucose Level 108 mg/dL 60-99 Above high normal [facility] Reference range is only applicable when patient is fasting Note the following drug interference: Sulfasalazine Sulfapyridine Can see falsely depressed Can see falsely elevated result with up to 17% results with up to 11% decrease in measurement increase in measurement Recommend patients be collected for this test prior to administration of either drug. Calcium 8.5-10.1 Normal (applies to non-numeric resul ts) [facility] Bilirubin,Total 0.1-1.9 Normal (applies to non-numeric results) [facility] SGOT(AST) 34 U/L 15-37 Normal (applies to non-numeric resul ts) [facility] Note the following drug interference: Sulfasalazine Sulfapyridine Can see falsely depressed Can see falsely elevated result with up to 10% results with up to 10% decrease in measurement increase in measurement Recommend patients be collected for this test prior to administration of either drug. SGPT(ALT) 57 U/L 12-78 Normal (applies to non-numeric resul ts) [facility] Note the following drug interference: Sulfasalazine Sulfapyridine Can see falsely depressed Can see falsely elevated result with up to 29% results with up to 10% decrease in measurement increase in measurement Recommend patients be collected for this test prior to administration of either drug. Alkaline Phosphatase 125 U/L 38-126 Normal (applies to non-num deena results) [facility] can increase Alkaline Phosp le vels up to 2 times the normal adult value. Normal values for children and adolescents are 2 to 3 times the normal adult value. Total Protein 6.0-8.2 Normal (applies to non-numeric re sults) [facility] Albumin Level 3.4-5.0 Normal (applies to non-numeric re sults) [facility] ID Date Data Source [id number] 04/23/2021 10:16:00 PM EDT [facility] Name Value Range Interpretation Code Description Data Stephanie rce(s) Supporting Document(s) Magnesium 1.8-2.4 Normal (applies to non-numeric resul ts) [facility] ID Date Data Source [id number] 04/23/2021 10:16:00 PM EDT [facility] Name Value Range Interpretation Code Description Data Stephanie rce(s) Supporting Document(s) Salicylate 2.8-20.0 Below low normal [facility] ID Date Data Source [id number] 04/23/2021 10:16:00 PM EDT [facility] Name Value Range Interpretation Code Description Data Stephanie rce(s) Supporting Document(s) Acetaminophen 10.0-30.0 Below low normal [facility] ID Date Data Source [id number] 04/23/2021 10:13:00 PM EDT [facility] Name Value Range Interpretation Code Description Data Stephanie rce(s) Supporting Document(s) Ethanol Less than 10.0 Normal (applies to non-numeric r esults) [facility] ID Date Data Source [id number] 04/23/2021 09:42:00 PM EDT [facility] Name Value Range Interpretation Code Description Data Stephanie rce(s) Supporting Document(s) White Blood Count 3.5-10.5 Normal (applies to non-numeri c results) [facility] Red Blood Count 3.90-5.00 Normal (applies to non-numeric results) [facility] Hemoglobin 12.0-15.5 Normal (applies to non-numeric resul ts) [facility] Hematocrit 34.9-44.5 Normal (applies to non-numeric resul ts) [facility] Mean Corpuscular Volume 81.2-95.1 Normal (applies to non- numeric results) [facility] Mean Corpuscular Hgb 25.6-32.2 Normal (applies to non-num deena results) [facility] Mean Corpuscular Hgb Conc 32.0-36.0 Normal (applies to no n-numeric results) [facility] Red Cell Distribution Width 11.9-15.5 Normal (appli es to non-numeric results) [facility] Platelet Count 288 x10 3/uL 150-450 Normal (applies to non-numeric results) [facility] Mean Platelet Volume 9.4-12.4 Normal (applies to non-num deena results) [facility] Neutrophils% (Auto) 31.0-71.0 Normal (applies to non-nume frank results) [facility] Lymphocytes% (Auto) 20.0-55.0 Normal (applies to non-nume frank results) [facility] Monocytes% (Auto) 4.0-12.0 Normal (applies to non-numeri c results) [facility] Eosinophils% (Auto) 1.0-8.0 Normal (applies to non-nume frank results) [facility] Basophils% (Auto) 0.0-2.0 Normal (applies to non-numeri c results) [facility] Immature Granulocytes% (Auto) 0.0-2.0 Normal (alexander lies to non-numeric results) [facility] Neutrophils# (Auto) 1.50-6.20 Normal (applies to non-nume frank results) [facility] Lymphocytes# (Auto) 1.20-4.00 Normal (applies to non-nume frank results) [facility] Monocytes# (Auto) 0.00-0.90 Normal (applies to non-numeri c results) [facility] Eosinophils# (Auto) 0.00-0.50 Normal (applies to non-nume frank results) [facility] Basophils# (Auto) 0.00-0.20 Normal (applies to non-numeri c results) [facility] Immature Granulocytes# (Auto) 0.00-7.00 No rmal (applies to non-numeric results) [facility] ID Date Data Source [id number] 04/23/2021 09:58:00 PM EDT [facility] Name Value Range Interpretation Code Description Data Stephanie rce(s) Supporting Document(s) UDS Benzodiazepines Screen Negative Normal (applies to n on-numeric results) [facility] UDS Cocaine Screen Negative Normal (applies to non-numer ic results) [facility] UDS Ampetamine Screen Negative Normal (applies to non-nu meric results) [facility] UDS Cannabinoids Screen Negative Normal (applies to non- numeric results) [facility] UDS Opiates Screen Negative Normal (applies to non-numer ic results) [facility] UDS Barbiturates Screen Negative Normal (applies to non- numeric results) [facility] Threshold Levels Benzodiazepine 200 ng/mL Cocaine 300 ng/mL Amphetamines 1000 ng/mL Cannabinoids (THC) 50 ng/mL Opiates 300 ng/mL Barbiturates 200 ng/mL All positive findings are presumptive and unconfirmed. Confirmation of positive results are performed only at request of provider. Unconfirmed results must not be used for non-medical purposes (i.e. preemployment and legal purposes) ID Date Data Source [id number] 04/23/2021 09:52:00 PM EDT [facility] Collected By: Nurse Initials: JT Time Collected: 2115 Collected By: Nurse Initials: JT Time Collected: 2115 Collected By: Nurse Initials: JT Time Collected: 2115 Name Value Range Interpretation Code Description Data Stephanie rce(s) Supporting Document(s) Color,Urine Colorl-Dk Y Normal (applies to non-numeric res ults) [facility] Clarity,Urine Clear Normal (applies to non-numeric re sults) [facility] Specific [place],Urine 1.005-1.030 Normal (applies to non- numeric results) [facility] pH,Urine 5.0-8.0 Normal (applies to non-numeric resul ts) [facility] Protein,Urine Negative [facility] Glucose,Urine Negative Normal (applies to non-numeric re sults) [facility] Ketones,Urine Negative Normal (applies to non-numeric re sults) [facility] Blood,Urine Negative [facility] Bilirubin,Urine Negative Normal (applies to non-numeric results) [facility] Urobilinogen,Urine 0.2-1.0 Normal (applies to non-numer ic results) [facility] Leukocyte Esterase,Urine Negative Normal (applies to non -numeric results) [facility] Nitrite,Urine Negative Normal (applies to non-numeric re sults) [facility] ID Date Data Source [id number] 04/23/2021 09:52:00 PM EDT [facility] Collected By: Nurse Initials: JT Time Collected: 2115 Collected By: Nurse Initials: JT Time Collected: 2115 Collected By: Nurse Initials: JT Time Collected: 2115 Name Value Range Interpretation Code Description Data Stephanie rce(s) Supporting Document(s) RBC,Urine None Seen [facility] WBC,Urine None Seen [facility] Casts,Urine None Seen Normal (applies to non-numeric resu lts) [facility] Squamous Cells,Urine None Seen [facility] Amorphous Sediment,Urine None Seen [facility] Bacteria,Urine None Seen [facility] ital ID Date Data Source [id number] 04/23/2021 09:52:00 PM EDT [facility] Collected By: Nurse Initials: JT Time Collected: 2115 Collected By: Nurse Initials: JT Time Collected: 2115 Collected By: Nurse Initials: JT Time Collected: 2115 Name Value Range Interpretation Code Description Data Stephanie rce(s) Supporting Document(s) HCG,Ur Negative Normal (applies to non-numeric results) [facility] ID Date Data Source [id number] 04/21/2021 02:53:00 PM EDT [address] CONSULTPATIENT NAME: YARELI HATCH MR#: [id number] PHYSICIAN:AUTHOR: Colleen SMITH,Bogdan DATE: #: ERPATIASIYA : 00See AddendumHistoryHistory of Presenting IllnessPatient is 20-year-old female, currently lives in [facility], single, pastpsych history of borderline personality disorder, bipolar disorderChief complaint: Suicidal ideationHistory of present illness: Patient was seen along with PA students. Accordingto information from PSA patient was presented last night. She was banging herhead and expressing suicidal ideation while she was at [facility] and that is when shewas brought into [...] as reaching out to staff member at [facility] if she does not feel safe.ER physician seems to be frustrated with patient recurrent emergency room visitbut upon discussion with the patient patient denied having any such behaviorpertaining to her safety prior to coming to the hospital or any intent to harmherself prior to the hospital. She was also requesting to have her clotheschanged and going back to [facility] as she was under order of [facility]. [...] not feel safe to return back to [facility].However patient declined and also recommended case management services toprovide her help to find a suitable place that patient likes.DATE SIGNED: 04/21/21 Electronically SignedTIME SIGNED: 1505 BOGDAN MACIAS MD Name Value Range Interpretation Code Description Data Stephanie rce(s) Supporting Document(s) ID Date Data Source [id number] 04/20/2021 11:19:00 PM EDT [facility] Name Value Range Interpretation Code Description Data Stephanie rce(s) Supporting Document(s) SALICYLATE < 1.7 mg/dL 0.0-20.0 [facility] ID Date Data Source [id number] 04/20/2021 11:19:00 PM EDT [facility] Name Value Range Interpretation Code Description Data Stephanie rce(s) Supporting Document(s) ACETAMINOPHEN < 2.0 ug/mL 0-30 [facility] ID Date Data Source [id number] 04/20/2021 11:19:00 PM EDT [facility] Name Value Range Interpretation Code Description Data Stephanie rce(s) Supporting Document(s) ETOH NONE DETECTED N [facility] NONE DETECTED ID Date Data Source [id number] 04/20/2021 11:19:00 PM EDT [facility] Name Value Range Interpretation Code Description Data Stephanie rce(s) Supporting Document(s) GLU 100 mg/dL 70-110 [facility] Patients taking Sulfasalazine may have f alsely depressedGlucose levels. Patients taking Sulfapyridine may havefalsely elevated Glucose levels. Patients should be drawnfor Glucose before the initial administration of eitherdrug. BUN 16 mg/dL 7-23 [facility] CRE 0.657 mg/dL 0.500-1.300 [facility] GFR > 60 mL/min [facility] CHLORIDE 111 mmol/L 99-110 H [facility] NA 142 mmol/L 136-147 [facility] POTASSIUM 3.9 mmol/L 3.5-5.1 [facility] TCO2 24 mmol/L 20-33 [facility] ANION GAP 10.9 10.0-20.0 [facility] CA 8.6 mg/dL 8.3-10.7 [facility] ALKALINE PHOS 118 U/L 45-117 H [facility] TP 7.4 g/dL 6.0-7.8 [facility] ALB 3.4 g/dL 3.5-5.0 [facility] ESRD Dialysis patient Albumin reference range: 2.9-4.4 g/dL GL 4.0 g/dL 2.3-3.5 [facility] A/G 0.9 1.0-2.5 [facility] T. BILIRUBIN 0.3 mg/dL 0.1-1.1 [facility] [place] Total Bilirubin is n ot recommended forpatients undergoing treatment with eltrombopag (Promacta)due to the potential for falsely elevated results. ALTI 46 U/L 6-54 [facility] Patients taking Sulfasalazine and/or Sul fapyridine may havefalsely depressed ALT levels. Patients should be drawn forALT before the initial administration of either drug. AST 33 U/L 6-38 [facility] Patients taking Sulfasalazine and/or Sul fapyridine may havefalsely depressed AST levels. Patients should be drawn forAST before the initial administration of either drug. ID Date Data Source [id number] 04/20/2021 11:01:00 PM EDT [facility] Name Value Range Interpretation Code Description Data Stephanie rce(s) Supporting Document(s) WBC 7.79 x10E3/uL 4.0-10.5 N [facility] RBC 3.99 x10E6/uL 4.20-5.40 L [facility] Hemoglobin 11.7 g/dL 12.0-16.0 [facility] Hematocrit 35.3 % 37.0-47.0 [facility] MCV 88.5 fL 81.0-99.0 [facility] MCH 29.3 pg 27.0-31.0 [facility] MCHC 33.1 g/dL 32.7-35.6 [facility] RDW 12.2 % 11.5-14.0 [facility] Platelet count 264 x10E3/uL 150-450 [facility] ital MPV 9.5 fl 6.9-9.5 [facility] Neutrophils 65.2 % 34-64 [facility] Lymphocytes 27.2 % 25-45 [facility] Monocytes 6.0 % 1.7-10.6 [facility] Eosinophils 1.0 % 0.4-7.0 [facility] Basophils 0.3 % 0.1-2.0 [facility] Imm. Gran. 0.3 % 0.1-2.0 [facility] Abs. Neutro. 5.08 x10E3/uL 1.2-7.6 [facility] Abs. Lymph. 2.12 x10E3/uL 1.0-3.5 [facility] Abs. [place]. 0.47 x10E3/uL 0.1-1.0 [facility] Abs. Eosin. 0.08 x10E3/uL 0.1-0.7 [facility] Abs. Baso. 0.02 x10E3/uL 0.0-0.1 [facility] Abs. Imm. Gran. 0.02 x10E3/uL 0.0-0.1 [facility] spital ANRBC% 0 % 0 [facility] ID Date Data Source [id number] 04/20/2021 10:40:00 PM EDT [facility] Name Value Range Interpretation Code Description Data Stephanie rce(s) Supporting Document(s) LCOVID-19, CORDELL NEGATIVE [facility] This lab was ordered by [facility] and reported by [facility]. ID Date Data Source [id number] 04/20/2021 11:16:00 PM EDT [facility] Name Value Range Interpretation Code Description Data Stephanie rce(s) Supporting Document(s) COVID-19, CORDELL NEGATIVE NEGATIVE N [facility] Methodology: Isothermal Nucleic Acid Amp [...] Emergency Use Authorization. ID Date Data Source [id number] 04/21/2021 03:43:00 PM EDT [facility] Physician DocumentationClaxSaud edical CenterName: aYreli DuvallAge: 20 yrsSex: FemaleDOB: 2000MRN: [id number] Date: 04/20/2021Time: 22:29Account#: [id number] MD: NONE, - Per PatientED Physician Catalino Piresposition Summary:04/21/21 15:00Discharge OrderedLocation: Home Self CareafProblem: an ongoing problemafSymptoms: are unchangedafCondition: StableafDiagnosis- Adjustment disorder, unspecifiedafFollowup:af- With: Private Physician- When: 1 week- Reason: Recheck today's complaintsDischarge Instructions:- ADJUSTMENT DISORDERaf- Discharge Summary Tblfjum6Qqvzm:- Medication Reconciliationaf- Medication Reconciliation Form - 2nd CopyafHPI:04/1104:45 This 20 yrs old White Female presents to ER via Police with complaints ofPsych Problem.na104:45 The patient presents to the emergency department with depression, PT.BROUGHT TO ED BY ww9DBZR FOR MHE. APPARENTLY SHE WAS HITTING HER [...] Negative for drug dependence, alcohol dependence, auditoryhallucinations, nn5ikbmfs hallucinations, homicidal ideation. All other systems are negative.Exam:04:49 Head/Face: Normocephalic, atraumatic. Eyes: Pupils equal round andreactive to light, na6ufyeg-wvkpbh motions intact. Lids and lashes normal. Conjunctiva [...] 97.7(T); Pulse Ox 95% on R/A; Pain0/10; jl15:90lz314/1022:32 Body Mass Index 37.12 (104.33 kg, 167.64 cm)ef110/1115:40 Pain Scale: Ooisawh87:43 qyabxdnnim5VPH:03:21 Patient medically screened.na104:50 Data reviewed: vital signs, nurses notes, lab test result(s).na:31 Order name: Acetaminophen Level; Complete Time: 03::31 Order name: CBC with diff; Complete Time: 03::32 Order name: CMP; Complete Time: 03::32 Order name: COVID-19 PROFILE+LAB; Complete Time: 03::32 Order name: ETOH; Complete Time: 03::32 Order name: Okzpaheok346/1022:32 Order name: Salicylate Level; Complete Time: 03::32 Order name: Triage - Drug Rgrvwuma325/1022:32 Order name: LMuk417:32 Order name: Urine HCG Qualitat :32 Order name: Diet - Mental Health Tray (call dietary); Complete Time:22:43 :32 Order name: Belongings List; Complete Time: 15::32 Order name: Document Weight and Height for BMI; Complete Time: 15:2:32 Order name: Mental Health Evaluation; Complete Time: 15::24 Order name: Medically Cleared for Eval by- Psychosocial, Motivational Speaker (.PSA)oc4Hgcwmirtx Medications:15:42 Not Given (Patient Refused): ARIPiprazole 10 mg PO vfmias577:42 Not Given (Patient Refused): Loratadine 10 mg PO ozjnns533:42 Not Given (Patient Refused): Singulair Chewable Tablet 10 mg PO ilevsr625:42 Not Given (Patient Refused): Propranolol 10 mg PO bkagku161:42 Not Given (Patient Refused): sertraline 50 mg PO yxzcat961:42 Not Given (Physician Discretion): Topiramate 75 mg PO dobyry8Fssqnqqtkx:Dispatcher [employer] Anshul Loving MD MD afAl-Hussein, Nabeel, MD MD na1Ami Medrano, RN RN ef1 Name Value Range Interpretation Code Description Data Stephanie rce(s) Supporting Document(s) ID Date Data Source [id number] 04/21/2021 03:43:00 PM EDT [facility] Nurse's NotesClaxVA [facility] terName: Yareli AdamelAge: 20 yrsSex: FemaleDOB: 2000MRN: [id number] Date: 04/20/2021Time: 22:29Account#: [id number] Q9Ancaweu MD: NONE, - Per PatientDiagnosis: Adjustment disorder, unspecifiedPresentation:04/1022:30 Presenting complaint: Patient states: the otr driver got me because i wasbanging my head and hb9ioexqrsdgn to tie something around my neck. International Travel Fever No.CoronavirusScreening: Have you received the COVID vaccine? Yes. Communicable DiseaseScreen:Negative for fever>/= 100 degrees Fahrenheit. Communicable disease screen isnegative.(-) rash or unusual skin lesion (-) travel/contact with traveler (-)respiratorysymptoms. Communication Speaks [place] Citizen? Yes, is preferred language.22:30 Acuity: Triage 4sp658:30 Acuity Assignment: Triage 8qz638:30 Method Of Arrival: Zxukwfpc9Udtxic Assessment:22:31 General: Appears in no apparent distress, [...] 400 mg intramuscular suspension,extended release syringe 400 alzpulh58 days3. ibuprofen 400 mg Oral tablet 1 [...] threats or abuse. Denies injuries from another.Nutritional kb3gxcivecyl: No deficits noted. Offer of HIV testing: patient was previouslyofferedscreening. Fall Risk None identified.Assessment:22:35 General: Appears in no apparent distress, obese, unkempt, Behavior isagitated. Neuro: qy4Bbrws of Consciousness is awake, alert, obeys commands. Respiratory: Nodeficits noted.04/1100:40 Reassessment: Reassessment: pt continually yelling and arguing andthrowing chairs [employer] antony aware - MD aware - pt has [...] is generated by a policeagency: Police. The hz6nnmjydr was referred for evaluation because Pt states "the otr driver got me becauseI wasbanging my head and threatened to tie something around my neck.".14:14 Subjective: The patients chief complaint is Pt presents to the ED withPolice due to em2the pt banging her head against the wall and threatening to tie somethingaround herneck at the [facility] facility. During MHE, pt denies SI/HI/ Pt denieshallucinations. Ptdenies self harm. Pt states she was just mad at [facility] facility due to being"pissed off"because she hates her current [facility] housing. Pt denies being verbally abusivetowardsstaff at [facility]. Pt denies threatening to tie something around her [facility] at [facility]. Pt states she would like to be discharged home as she is not suicidalandhomicidal. Pt has outpatient [facility]. Pt denies legal issues. Pt denies access toguns. PSAspoke with Nikky at [facility]. Nikky states the pt was banging her head in her roomand inthe hallway there at her residence. Nikky states the pt was verbally abusivetowardsstaff. Nikky states there needs to be a better plan for the pt as there seemsto be apattern of her going to the ED since she has been at [facility] since February 13 2021.Delusions are denied, Hallucinations are denied. Patient's mood is euthymic.14:22 Patient reports history of anxiety, Bipolar Disorder, Depression, Other:Borderline qp1Ffgdrbujhok Disorder. Mental Health Admissions: [facility], last 03/2021 CurrentOutpatientMental Health Services: Therapist / Agency: [facility]. Living Environment: Family / Home Support: Fair The patient currentlylives kaley [facility] residence. The patient is single. Detox / Rehab Admissions: None. CurrentOutptAlcohol or Substance Abuse Services: None.14:24 Patient presents to Emergency Department with the following symptomswithin the past 2 eu5jfoby: self-mutilation, suicidal statements/threats. Objective: Patient iscooperative,Speech is normal. Affect is appropriate. Patient has mutilated themselves bycuttingright arm and left arm Cuts on arms from wire in face mask at [facility] facility twodaysago. Mental status exam: Patients appearance [...] by phone with Dr Macias. DSM-V DX [place] I diagnosis:Adjustment D/OUnspecified [place] II diagnosis: Deferred [place] III diagnosis: None. [place] IVdiagnosis:poor coping skills. [place] Suicide Severity Rating Scale: Suicidal IdeationRating 0;Intensity of Ideations Rating 0; Suicidal Behavior Rating 0.14:35 Narrative Pt will be discharged back to [facility] per Dr. Macias with a diagnosisof Adjustment zb7Mcgfpawk. Pt can contract for safety. Pt denies SI/HI. Pt will follow up withtheiroutpatient provider, the [facility] and upcomingappointmentswill be verified and expedited. Pt has been provided with the PSA and Reachoutphonenumbers. Pt has been instructed to take medications as prescribed and [facility] should problems continue or worsen. Per Dr. Macias, pt will complete 5copingskills/5 goals[address]15:[address] Macias spoke with ED Dr. Strauss. Dr. Macias states the ptcapable of hq8gcyhxc to the ED whenever she feels suicidal and that she needs to. Dr. Alvarezuggestsinvolving Case Management and having [facility] make requests for other housingservices ifthe pt wishes not to live at [facility]. Dr. Macias states if the pt is [...] 97.7(T); Pulse Ox 95% on R/A; Pain0/10; jl15:16ie923:32 Body Mass Index 37.12 (104.33 kg, 167.64 cm)ef110/1115:40 Pain Scale: Osfvqar94:43 atemoadraj6YY Course:04/1022:29 Patient arrived in ED.ef122:29 NONE, - Per Patient is Private Physician.ef122:30 Triage completed.ef122:35 Patient has correct armband on for positive identification. Bed in lowposition. Sitter ef1at bedside. Verbal reassurance given. Pillow given.22:35 Labs drawn. Collected by lab. Nasal Swab.ef110/1103:21 Ramón Levy MD is Attending Physician.na106:52 Resting quietly.fw10:17 Appears to be sleeping.ef115:43 No Physician assisted procedures completed.xe2Ahjrjejhdfhr Medications:15:42 Not Given (Patient Refused): ARIPiprazole 10 mg PO exqxnh613:42 Not Given (Patient Refused): Loratadine 10 mg PO :42 Not Given (Patient Refused): Singulair Chewable Tablet 10 mg PO pczoqd428:42 Not Given (Patient Refused): Propranolol 10 mg PO aqmngk771:42 Not Given (Patient Refused): sertraline 50 mg PO :42 Not Given (Physician Discretion): Topiramate 75 mg PO sazenn7Rxyptdn:15:00 Discharge ordered by MD.af15:43 Disposition: Discharged to home ambulatory.ef115:43 Condition: stable, Provider notified of abnormal vital signs.15:43 Discharge instructions given to patient, Instructed on dischargeinstructions, followup and referral plans. Demonstrated understanding of instructions.15:43 Discharge Assessment: Patient verbalized understanding of dispositioninstructions.Patient able15:43 Patient left the ED.e p6Nnunffsmhz:Anshul Strauss MD MD afAl-Hussein, Nabeel, MD MD na1Hilborne, Erica, RN RN mn7RgEemlwBertha Minaya RN Loida Gimenez RN Pearl Veras co1Kxfzkovqjxm: (The following items were deleted from the chart)00:50 00:40 Reassessment: fwfw14:22 13:54 Referral Information: Evaluation referral is generated by ie9fs849:41 14:35 Narrative Pt will be discharged back to [facility] per Dr. Macias. Pt cancontract for ew7glwqpv. Pt denies SI/HI. [facility] and upcoming [...] to being"pissed off"because she hates her current [facility] housing. Pt denies being verbally abusivetowardsstaff at [facility]. Pt denies threatening to tie something around her neck at [facility]. Pt states she would like to be discharged home as she is not suicidalandhomicidal. Pt has outpatient [facility] at [facility] counselor [place]. Pt denies legal issues. Pt denies access toguns..Delusions are denied, Hallucinations are denied. Patient's mood is euthymic.em2 Name Value Range Interpretation Code Description Data Stephanie rce(s) Supporting Document(s) ID Date Data Source [id number] 04/19/2021 03:01:00 AM EDT [facility] Name Value Range Interpretation Code Description Data Stephanie rce(s) Supporting Document(s) SALICYLATE < 1.7 mg/dL 0.0-20.0 [facility] ID Date Data Source [id number] 04/19/2021 03:01:00 AM EDT [facility] Name Value Range Interpretation Code Description Data Stephanie rce(s) Supporting Document(s) ACETAMINOPHEN < 2.0 ug/mL [facility] Date Data Source [id number] 04/19/2021 03:01:00 AM EDT [facility] Name Value Range Interpretation Code Description Data Stephanie rce(s) Supporting Document(s) ETOH NONE DETECTED N [facility] NONE DETECTED ID Date Data Source [id number] 04/19/2021 03:01:00 AM EDT [facility] Name Value Range Interpretation Code Description Data Stephanie rce(s) Supporting Document(s) GLU 86 mg/dL 70-110 [facility] Patients taking Sulfasalazine may have f alsely depressedGlucose levels. Patients taking Sulfapyridine may havefalsely elevated Glucose levels. Patients should be drawnfor Glucose before the initial administration of eitherdrug. BUN 13 mg/dL 7-23 [facility] CRE 0.615 mg/dL 0.500-1.300 [facility] GFR > 60 mL/min [facility] CHLORIDE 113 mmol/L 99-110 H [facility] NA 142 mmol/L 136-147 [facility] POTASSIUM 3.9 mmol/L 3.5-5.1 [facility] TCO2 24 mmol/L 20-33 [facility] ANION GAP 8.9 10.0-20.0 [facility] CA 8.6 mg/dL 8.3-10.7 [facility] ALKALINE PHOS 112 U/L 45-117 [facility] TP 7.3 g/dL 6.0-7.8 [facility] ALB 3.3 g/dL 3.5-5.0 [facility] ESRD Dialysis patient Albumin reference range: 2.9-4.4 g/dL GL 4.0 g/dL 2.3-3.5 [facility] A/G 0.8 1.0-2.5 [facility] T. BILIRUBIN 0.2 mg/dL 0.1-1.1 [facility] [place] Total Bilirubin is n ot recommended forpatients undergoing treatment with eltrombopag (Promacta)due to the potential for falsely elevated results. ALTI 41 U/L 6-54 [facility] Patients taking Sulfasalazine and/or Sul fapyridine may havefalsely depressed ALT levels. Patients should be drawn forALT before the initial administration of either drug. AST 26 U/L 6-38 [facility] Patients taking Sulfasalazine and/or Sul fapyridine may havefalsely depressed AST levels. Patients should be drawn forAST before the initial administration of either drug. ID Date Data Source [id number] 04/19/2021 02:32:00 AM EDT [facility] Name Value Range Interpretation Code Description Data Stephanie rce(s) Supporting Document(s) WBC 7.86 x10E3/uL 4.0-10.5 [facility] RBC 3.92 x10E6/uL 4.20-5.40 [facility] Hemoglobin 11.6 g/dL 12.0-16.0 [facility] Hematocrit 35.0 % 37.0-47.0 [facility] MCV 89.3 fL 81.0-99.0 [facility] MCH 29.6 pg 27.0-31.0 [facility] MCHC 33.1 g/dL 32.7-35.6 [facility] RDW 12.1 % 11.5-14.0 [facility] Platelet count 276 x10E3/uL 150-450 [facility] ital MPV 9.4 fl 6.9-9.5 [facility] Neutrophils 60.4 % 34-64 [facility] Lymphocytes 30.8 % 25-45 [facility] Monocytes 6.9 % 1.7-10.6 [facility] Eosinophils 1.1 % 0.4-7.0 [facility] Basophils 0.3 % 0.1-2.0 [facility] Imm. Gran. 0.5 % 0.1-2.0 [facility] Abs. Neutro. 4.75 x10E3/uL 1.2-7.6 N [facility] Abs. Lymph. 2.42 x10E3/uL 1.0-3.5 [facility] Abs. [place]. 0.54 x10E3/uL 0.1-1.0 N [facility] Abs. Eosin. 0.09 x10E3/uL 0.1-0.7 [facility] Abs. Baso. 0.02 x10E3/uL 0.0-0.1 [facility] Abs. Imm. Gran. 0.04 x10E3/uL 0.0-0.1 N [facility] spital ANRBC% 0 % 0 [facility] ID Date Data Source [id number] 04/19/2021 02:36:00 AM EDT [facility] Name Value Range Interpretation Code Description Data Stephanie rce(s) Supporting Document(s) PCP VISTA NEG NEGATIVE N [facility] MINIMUM LEVEL OF DETECTION IS 25 ng/ml BENZODIAZEPINES NEG NEGATIVE [facility] MINIMUM LEVEL OF DETECTION IS 200 ng/ml COCAINE VISTA NEG NEGATIVE [facility] MINIMUM LEVEL OF DETECTION IS 300 ng/ml AMPHETAMINES NEG NEGATIVE [facility] MINIMUM LEVEL OF DETECTION IS 1000 ng/ml BARBITURATES NEG NEGATIVE [facility] CUTOFF CONCENTRATION IS 200 ng/ml CANNABINOIDS NEG NEGATIVE [facility] CUTOFF CONCENTRATION IS 50 ng/ml METHADONE VISTA NEG NEGATIVE [facility] MINIMUM LEVEL OF DETECTION IS 300 ng/ml OPIATE VISTA NEG NEGATIVE [facility] MINIMUM DETECTION LEVEL IS 300 ng/ml ID Date Data Source [id number] 04/19/2021 02:16:00 AM EDT [facility] Name Value Range Interpretation Code Description Data Stephanie rce(s) Supporting Document(s) HCG QUAL URINE Negative Negative [facility] ID Date Data Source [id number] 04/19/2021 02:16:00 AM EDT [facility] Name Value Range Interpretation Code Description Data Stephanie rce(s) Supporting Document(s) URINE COLOR Yellow [facility] UAPR Cloudy [facility] UGLU Negative NEGATIVE [facility] URINE BILIRUBIN Negative NEGATIVE [facility] al UKET Negative NEGATIVE [facility] USG 1.029 1.010-1.025 H [facility] UBLO Negative NEGATIVE [facility] UpH 5.5 5.0-8.0 [facility] UPRO Negative Negative [facility] UUB 1.0 mg/dL 0.2-1.0 [facility] UNIT Negative Negative [facility] ULEU Negative Negative [facility] ID Date Data Source [id number] 04/19/2021 01:30:00 AM EDT [facility] Name Value Range Interpretation Code Description Data Stephanie rce(s) Supporting Document(s) LCOVID-19, CORDELL NEGATIVE [facility] This lab was ordered by [facility] and reported by [facility]. ID Date Data Source [id number] 04/19/2021 02:30:00 AM EDT [facility] Name Value Range Interpretation Code Description Data Stephanie rce(s) Supporting Document(s) COVID-19, CORDELL NEGATIVE NEGATIVE [facility] Methodology: Isothermal [...] Emergency Use Authorization. ID Date Data Source [id number] 04/19/2021 02:55:00 PM EDT [facility] Physician DocumentationClaxSaud Hinkle edical CenterName: Yareli DuvallAge: 20 yrsSex: FemaleDOB: 2000MRN: [id number] Date: 04/19/2021Time: 01:17Account#: [id number] 1Private MD: NONE, - Per PatientED Physician Rebekah Groverposition Summary:04/19/21 14:31Discharge OrderedLocation: Home Self CareafProblem: an ongoing problemafSymptoms: are unchangedafCondition: StableafDiagnosis- Bipolar disorder, unspecifiedafFollowup:af- With: Private Physician- When: 1 week- Reason: Recheck today's complaintsDischarge Instructions:- BIPOLAR DISORDERaf- Discharge Summary Woawarq93Hwplt:- Medication Reconciliationaf- Medication Reconciliation Form - 2nd CopyafHPI:04/907:14 This 20 yrs old White Female presents to ER via Police with complaints ofPsych Problem.br07:14 Obese 20-year-old female brought by PD for evaluation of self- harm.Please call to seen brpatient where she was seen slamming her head against the wall after attemptingto cutwrists w wire from covid mask. self endorses having been [facility].Historical:- Allergies: Haldol; Risperdal;- Home Meds:1. aripiprazole 10 mg oral tablet 1 tab daily2. aripiprazole 400 mg intramuscular suspension,extended release syringe 400 bfeacry97 days3. ibuprofen 400 mg Oral tablet 1 [...] Temp 98.3; Pulse Ox 98% on R/A; Mseofd590.33 kg; xe6Egknfx 5 ft. 6 in. ; Pain 0/10;14:44 BP 119 / 88; Pulse 88; Resp 16; Temp 98; Pulse Ox 98% ;kk201:24 Body Mass Index 37.12 (104.33 kg, 167.64 cm)kk301:24 Pain Scale: Ncjzpfz9CPJ:01:33 Patient medically screened.br07:17 Data reviewed: vital signs, [...] PSA.04/901:37 Order name: Acetaminophen Level; Complete Time: 03:16kk 0901:37 Order name: CBC with diff; Complete Time: 03::37 Order name: CMP; Complete Time: 03::37 Order name: COVID-19 PROFILE+LAB; Complete Time: 03::37 Order name: ETOH; Complete Time: 03::37 Order name: Uzkuokvjb180/0901:37 Order name: Salicylate Level; Complete Time: 03::37 Order name: Triage - Drug Screen; Complete Time: 03::37 Order name: UA; Complete Time: 03::37 Order name: Urine HCG Qualitative; Complete Time: 03::37 Order name: Diet - Mental Health Tray (call dietary):37 Order name: Belongings Hwpiec325:37 Order name: Document Weight and Height for LLNri354:37 Order name: Mental Health Zmmcxidacqkp111/0901:37 Order name: Mental Health Level 5ke957:37 Order name: VS q nnjvful241/0903:17 Order name: Consult Orders-Psychosocial, Motivational Speaker (.PSA)brDispensed Medications:03:37 Drug: B52 IM - (LORazepam 2 mg, diphenhydrAMINE 50 mg, HaloperidolLactate 5 mg) Route: cm4IM; Site: left vastus lateralis;Signatures:Dispatcher [employer] Anshul Loving MD MD afRoberts, Brandon, MD MD brKelly, Krista RN RN fl5YikxthnjiWendy quintana RN RN cm4 Name Value Range Interpretation Code Description Data Stephanie rce(s) Supporting Document(s) ID Date Data Source [id number] 04/19/2021 02:55:00 PM EDT [facility] terName: Yareli Mejiage: 20 yrsSex: FemaleDOB: 2000MRN: [id number] Date: 04/19/2021Time: 01:17Account#: [id number] MD: NONE, - Per PatientDiagnosis: Bipolar disorder, unspecifiedPresentation:04/901:18 Presenting complaint: Patient states: "Well, the otr driver came because I wasbanging my ru6llxt on the wall and I wasn't being suicidal.". Coronavirus Screening: Have youbeendiagnosed with COVID-19 in the past 30 days? no Are you currently on quarantinebyPublic Health? no Flu-like symptoms reported in the last 14 days: no. Have youhadclose contact with confirmed or suspected COVID-19 case? no Do you live in asettingwhere a large of amount of people live, such as long-term, family care,nursing home, etc?yes. Have you traveled to a location with widespread or ongoing COVID-19communityspread or outside of [facility]? no Have you traveled internationally or hadcontact withsomeone that has traveled and has been ill in the past 3 weeks? no Have youreceivedthe COVID vaccine? Yes Sophia unknown. Communication Speaks [place] Citizen? Yes, ispreferredlanguage. Language Line Services needed? No Are TDD needed? No. Best learningmethod:discussion. Learning barriers: none identified.01:18 Acuity: Triage 4wf483:18 Method Of Arrival: Wjvukkwg988:19 Acuity Assignment: Triage 6vz226:21 International Travel Fever No. Communicable Disease Screen: Negative forfever>/= 100 up7kvankhw Fahrenheit. Communicable disease screen is negative. (-) rash orunusual skinlesion (-) travel/contact with traveler (-) respiratory symptoms.Triage Assessment:01:24 General: Appears unkempt, well nourished, Behavior is appropriate forage, cooperative, pe7Omhaed fever, chills. Sepsis Screening: (1)Signs/symptoms infection Sepsis isnotsuspected. Pain: Denies pain. PSS-3 Now I'm going to ask you some questionsthat we askeveryone treated here, no matter what problem they are here for. It is [facility] and it helps us to [...] 400 mg intramuscular suspension,extended release syringe 400 wkrmmcy95 days3. ibuprofen 400 mg Oral tablet 1 [...] threats or abuse. Denies injuries from another.Nutritional az3nilokxclv: No deficits noted. Offer of HIV testing: patient was previouslyofferedscreening. Fall Risk None identified.Assessment:01:35 Reassessment: No changes from previously documented assessment.kk301:54 Reassessment: Patient refused to have labs drawn, explained mental healthprocess and kk3the steps necessary to be medically cleared, patient still refused, PSA and EDprovidermade aware.02:22 Reassessment: patient starts refusing blood work and screaming at staff.[employer]D called to ew3ibdktor, patient is known to be aggressive. Patient gets aggitated when thepolice gethere and continues to scream at staff, code richard called. Patient agrees toget bloodwork done. .03:38 Reassessment: patient tries to elope twice, walking out to the ramp.Patient was yc8wdnwljeosy and followed out to the ramp, patient did come back inside bothtimes.Patient begins hitting her head off the wall and not cooperating with staff andyelling/ calling staff vulgar names. Patient has no self control at this timescreamingin the ER. Code richard called..03:52 Reassessment: Patient placed in 4 point restraints at 0342 due tocontinued lack of wb1eujk control.04:33 Reassessment: patient released from restraints at 0433.cm404:46 Reassessment: Patient appears in no apparent distress at this time.cm407:30 Reassessment: Patient appears in no apparent distress at this time. Nochanges from vf6bynrsnhdhh documented assessment. Patient sleeping.09:57 Reassessment: Patient appears in no apparent distress at this time. Nochanges from mz6rysdprkssk documented assessment. Patient sleeping. .Psychosocial:07:26 SAFE Act Report Not Completed. Intervention: Observation Level 3. Mentalhealth consult sm8is initiated at 07:26. Referral Information: Evaluation referral is generatedby apolice agency: [employer]. The patient was referred for evaluation because hittinghead offthe wall.11:33 Subjective: The patients chief complaint is hitting head off wall. Ptpresents to the am11ED with [employer] after hitting her head off the wall at [facility]. Pt reports she waslightlyhitting her head off the wall. Pt reports that she had her headphones in so shedid nothear staff when they were asking her to stop. Pt states that because she didnot stopstaff at [facility] called the police on her to be brought in. Pt denies SI/HI. Ptdeniesaccess to guns. Pt reports suicide attempts in the past. Pt has been inpatientbeforenumerous times at numerous facilities last being three days ago at [facility]. Ptreportsthat she has been and eating and sleeping well. Pt reports [facility] Pt states that she does not feelshe needsinpatient services at this time. Pt reports she feels she would be safe to bedischarged home at this time back to [facility]. Delusions are denied, Hallucinationsaredenied. Patient's mood is depressed.12:00 Patient reports history of anxiety, Bipolar Disorder, Depression, self-mutilation, xf97Zpbwzt Health Admissions: multiple last yash ng at [facility] two days ago CurrentOutpatient Mental Health Services: Psychiatrist / Agency: [facility].LivingEnvironment: Family / Home Support: good The [facility].12:04 Patient presents to Emergency Department with the following symptomswithin the past 2 gw43nedlx: Anger, anxiety, depressed mood, poor concentration, poor impulsecontrol,suicidal ideation with no plan.12:06 Objective: Patient is cooperative, Speech is normal. Affect isappropriate. Mental vt15ybqvcp exam: Patients appearance is appropriate, Patient's behavior [...] patient's status at 13:33, ED MDnotified of sg34vqdmqpia status at 13:33. Disposition: Medically cleared for disposition by [facility].Psychiatric Consult is performed by phone with Dr Strauss The patient has asafedestination which is Pt will be discharged to [facility] per Dr. Canela. Pt cancontract forsafety and denies SI/HI. Pt will follow up with outpatient next week. Pt willtakemedications as prescribed. Pt provided contact information for JIMY Mazariegos. Ptwill come to the ED if problems continue or worsen. DSM-V DX [place] I diagnosis:BipolarD/O, Unspecified [place] II diagnosis: Deferred [place] III diagnosis: None. [place] IVdiagnosis: poor impulse control. The patient is not a sales and service advisor ormilitarydependent. [place] Suicide Severity Rating Scale: Suicidal Ideation Rating 0;Intensity of Ideations Rating 0; Suici reji Behavior Rating 0.Psych:01:28 Subjective: Patient's mood is euphoric, Delusions are denied,Hallucinations are denied lj9Jnhpvj thoughts of suicide. Denies suicidal plan. Objective: Patient iscooperative,Speech is normal, Affect is appropriate, Patient has mutilated themselves byscratchingself using a metal wire on right and left forearm. Interventions: Removedpersonalitems and placed in bag. Patient placed in hospital gown. Searched person fordangerousitems. Urine collected and sent for urine drug test. Belonging list filled out.Observation Level Level 3 Sitter needed. Provider notified. Zeeshan Grover [facility] notified. Wendy Luis Level 3 order placed.Vital Signs:01:24 BP 132 / 107; Pulse 91; Resp 20; Temp 98.3; Pulse Ox 98% on R/A; Guwkyl004.33 kg; nb2Uvbtql 5 ft. 6 in. ; Pain 0/10;14:44 BP 119 / 88; Pulse 88; Resp 16; Temp 98; Pulse Ox 98% ;kk201:24 Body Mass Index 37.12 (104.33 kg, 167.64 cm)kk301:24 Pain Scale: Ypzzpmu4JP Course:01:17 Patient arrived in ED.kk301:18 NONE, - Per Patient is Private Physician.kk301:19 Triage completed.kk301:30 Ratna Barbosa, RN is Primary Nurse.kk301:33 Zeeshan Grover MD is Attending Physician.br01:35 Urine collected. Clean catch specimen. Nasal Swab Collected by Nurse.kk301:40 Patient has correct armband on for positive identification. Placed ingown. Bed in low zl3akgtfsbn. Call light in reach. Side rails up [...] has no functional deficits.14:55 Patient left the ED.lc8Omoiumckvt:Anshul Strauss MD MD afKnight, Kristin, RN RN ok9XhywIna Jack Brandon, MD MD brKelly, Krista, RN RN hl9JhktxjkbUsha apple8Wendy Severino RN RN qb7QpbbOlivia jurado RN RN sw2 Name Value Range Interpretation Code Description Data Stephanie rce(s) Supporting Document(s) ID Date Data Source [id number] 04/17/2021 10:05:00 AM EDT [facility] Name Value Range Interpretation Code Description Data Stephanie rce(s) Supporting Document(s) Respiratory specimen severe acute respir atory syndrome coronavirus 2 (SARS-CoV-2) RNA Negative (qualifier value) [facility] This lab was ordered by [facility] and reported by . ID Date Data Source [id number] 04/17/2021 10:35:00 AM EDT [facility] Name Value Range Interpretation Code Description Data Stephanie rce(s) Supporting Document(s) SARS-CoV-2 RNA Negative Normal (applies to non-numeric r esults) [facility] Negative results should be treated as pr [...] Certificate of Accreditation. Factsheets for healthcare providers: https://www.fda.gov/media/807691/download Factsheets for patients: https://www.fda.gov/media/599751/download The ID NOW Instrument is a rapid molecular in vitro diagnostic test utilizing an isothermal nucleic acid amplification technology intended for the qualitative detection of nucleic acid from the SARS-CoV-2 viral RNA. THIS IS A STATE REPORTABLE COMMUNICABLE DISEASE. Manual entry verified by Megan Murphy 04/17/21 1034 ID Date Data Source [id number] 04/17/2021 10:56:00 AM EDT [facility] Name Value Range Interpretation Code Description Data Tsephanie rce(s) Supporting Document(s) HCG,Ur Negative Normal (applies to non-numeric results) [facility] ID Date Data Source [id number] 04/17/2021 02:47:00 AM [facility] Name Value Range Interpretation Code Description Data Stephanie rce(s) Supporting Document(s) UDS Benzodiazepines Screen Negative Normal (applies to n on-numeric results) [facility] UDS Cocaine Screen Negative Normal (applies to non-numer ic results) [facility] UDS Ampetamine Screen Negative Normal (applies to non-nu meric results) [facility] UDS Cannabinoids Screen Negative Normal (applies to non- numeric results) [facility] UDS Opiates Screen Negative Normal (applies to non-numer ic results) [facility] UDS Barbiturates Screen Negative Normal (applies to non- numeric results) [facility] Threshold Levels Benzodiazepine 200 ng/mL Cocaine 300 ng/mL Amphetamines 1000 ng/mL Cannabinoids (THC) 50 ng/mL Opiates 300 ng/mL Barbiturates 200 ng/mL All positive findings are presumptive and unconfirmed. Confirmation of positive results are performed only at request of provider. Unconfirmed results must not be used for non-medical purposes (i.e. preemployment and legal purposes) ID Date Data Source [id number] 04/17/2021 02:46:00 AM T [facility] Collected By: Nurse Initials: JT Time Collected: 214 Collected By: Nurse Initials: JT Time Collected: 214 Name Value Range Interpretation Code Description Data Stephanie rce(s) Supporting Document(s) Color,Urine Colorl-Dk Y Normal (applies to non-numeric res ults) [facility] Clarity,Urine Clear Normal (applies to non-numeric re sults) [facility] Specific [place],Urine 1.005-1.030 [facility] pH,Urine 5.0-8.0 Normal (applies to non-numeric resul ts) [facility] Protein,Urine Negative Normal (applies to non-numeric re sults) [facility] Glucose,Urine Negative Normal (applies to non-numeric re sults) [facility] Ketones,Urine Negative Normal (applies to non-numeric re sults) [facility] Blood,Urine Negative [facility] l Bilirubin,Urine Negative [facility] pital Urobilinogen,Urine 0.2-1.0 Normal (applies to non-numer ic results) [facility] Leukocyte Esterase,Urine Negative [facility] Nitrite,Urine Negative Normal (applies to non-numeric re sults) [facility] ID Date Data Source [id number] 04/17/2021 [facility]:46[facility]: Nurse Initials: JT Time Collected: 214 Collected By: Nurse Initials: JT Time Collected: 214 Name Value Range Interpretation Code Description Data Stephanie rce(s) Supporting Document(s) RBC,Urine None Seen [facility] WBC,Urine None Seen [facility] Casts,Urine None Seen Normal (applies to non-numeric resu lts) [facility] Squamous Cells,Urine None Seen [facility] Amorphous Sediment,Urine None Seen [facility] Bacteria,Urine None Seen [facility] ital ID Date Data Source [id number] 04/17/2021 02:29:00 AM [facility] Name Value Range Interpretation Code Description Data Stephanie rce(s) Supporting Document(s) Sodium 139 mmol/L 136-145 Normal (applies to non-numeric resul ts) [facility] Potassium 3.5-5.1 Below low normal [facility] spital Chloride 102 mmol/L 98-107 Normal (applies to non-numeric resul ts) [facility] Carbon Dioxide CO2 21-32 Normal (applies to non-numer ic results) [facility] Anion Gap 5.0-16.0 Normal (applies to non-numeric resul ts) [facility] BUN 12 mg/dL 7-18 Normal (applies to non-numeric results) [facility] Creatinine,Serum 0.7-1.2 Normal (applies to non-numeric results) [facility] GFR >60 Normal (applies to non-numeric results) [facility] Glucose Level 99 mg/dL 60-99 Normal (applies to non-numeric re sults) [facility] Reference range is only applicable when patient is fasting Note the following drug interference: Sulfasalazine Sulfapyridine Can see falsely depressed Can see falsely elevated result with up to 17% results with up to 11% decrease in measurement increase in measurement Recommend patients be collected for this test prior to administration of either drug. Calcium 8.5-10.1 Normal (applies to non-numeric resul ts) [facility] Bilirubin,Total 0.1-1.9 Normal (applies to non-numeric results) [facility] SGOT(AST) 26 U/L 15-37 Normal (applies to non-numeric resul ts) [facility] Note the following drug interference: Sulfasalazine Sulfapyridine Can see falsely depressed Can see falsely elevated result with up to 10% results with up to 10% decrease in measurement increase in measurement Recommend patients be collected for this test prior to administration of either drug. SGPT(ALT) 45 U/L 12-78 Normal (applies to non-numeric resul ts) [facility] Note the following drug interference: Sulfasalazine Sulfapyridine Can see falsely depressed Can see falsely elevated result with up to 29% results with up to 10% decrease in measurement increase in measurement Recommend patients be collected for this test prior to administration of either drug. Alkaline Phosphatase 133 U/L 38-126 Above high normal [facility] can increase Alkaline Phosp le vels up to 2 times the normal adult value. Normal values for children and adolescents are 2 to 3 times the normal adult value. Total Protein 6.0-8.2 Normal (applies to non-numeric re sults) [facility] Albumin Level 3.4-5.0 Normal (applies to non-numeric re sults) [facility] [facility] ID Date Data Source [id number] 04/17/2021 02:29:00 AM EDT [facility] Name Value Range Interpretation Code Description Data Stephanie rce(s) Supporting Document(s) Salicylate 2.8-20.0 Below low normal [facility] ID Date Data Source [id number] 04/17/2021 02:29:00 AM [facility] Name Value Range Interpretation Code Description Data Stephanie rce(s) Supporting Document(s) Troponin I 0.000-0.056 Normal (applies to non-numeric resu lts) [facility] ID Date Data Source [id number] 04/17/2021 02:29:00 AM EDT [facility] Name Value Range Interpretation Code Description Data Stephanie rce(s) Supporting Document(s) Acetaminophen 10.0-30.0 Below low normal [facility] Hospital ID Date Data Source [id number] 04/17/2021 02:29:00 AM [facility] Name Value Range Interpretation Code Description Data Stephanie rce(s) Supporting Document(s) Magnesium 1.8-2.4 Normal (applies to non-numeric resul ts) [facility] ID Date Data Source [id number] 04/17/2021 02:28:00 AM [facility] Name Value Range Interpretation Code Description Data Stephanie rce(s) Supporting Document(s) Ethanol Less than 10.0 Normal (applies to non-numeric r esults) [facility] ID Date Data Source [id number] 04/17/2021 02:07:00 AM EDT [facility] Name Value Range Interpretation Code Description Data Stephanie rce(s) Supporting Document(s) White Blood Count 3.5-10.5 Normal (applies to non-numeri c results) [facility] Red Blood Count 3.90-5.00 Normal (applies to non-numeric results) [facility] Hemoglobin 12.0-15.5 Normal (applies to non-numeric resul ts) [facility] Hematocrit 34.9-44.5 Normal (applies to non-numeric resul ts) [facility] Mean Corpuscular Volume 81.2-95.1 Normal (applies to non- numeric results) [facility] Mean Corpuscular Hgb 25.6-32.2 Normal (applies to non-num deena results) [facility] Mean Corpuscular Hgb Conc 32.0-36.0 Normal (applies to no n-numeric results) [facility] Red Cell Distribution Width 11.9-15.5 Normal (appli es to non-numeric results) [facility] Platelet Count 285 x10 3/uL 150-450 Normal (applies to non-numeric results) [facility] Mean Platelet Volume 9.4-12.4 Normal (applies to non-num deena results) [facility] Neutrophils% (Auto) 31.0-71.0 Normal (applies to non-nume frank results) [facility] Lymphocytes% (Auto) 20.0-55.0 Normal (applies to non-nume frank results) [facility] Monocytes% (Auto) 4.0-12.0 Normal (applies to non-numeri c results) [facility] Eosinophils% (Auto) 1.0-8.0 Normal (applies to non-nume frank results) [facility] Basophils% (Auto) 0.0-2.0 Normal (applies to non-numeri c results) [facility] Immature Granulocytes% (Auto) 0.0-2.0 Normal (alexander lies to non-numeric results) [facility] Neutrophils# (Auto) 1.50-6.20 Above high normal [facility] Lymphocytes# (Auto) 1.20-4.00 Normal (applies to non-nume frank results) [facility] Monocytes# (Auto) 0.00-0.90 Normal (applies to non-numeri c results) [facility] Eosinophils# (Auto) 0.00-0.50 Normal (applies to non-nume frank results) [facility] Basophils# (Auto) 0.00-0.20 Normal (applies to non-numeri c results) [facility] Immature Granulocytes# (Auto) 0.00-7.00 No rmal (applies to non-numeric results) [facility] ID Date Data Source [id number] 04/14/2021 03:02:00 PM EDT [address] [id number] HEALTH CONSULTPATIENT NAME: YARELI HATCH MR#: [id number] PHYSICIAN:AUTHOR: Surendra SMITH,P. DATE: RM#: ERPATIENT : 00HistoryAdditional NotesYareli is a 20-year-old single white female with the long history of mentalillness and multiple hospitalization pretty much in most of the psych hospitalin this area. She was recently discharged on Wednesday of last week from here andshe was sent to [facility] she claims she became suicidal after talking [...] her suicidal.So, then she was taken to [facility] in [facility] While she was in the [facility],she claims she escaped from the hospital at which point a pickup order wasissued then she was brought to [facility] yesterday. I saw her today int ER.In my evaluation today which I conducted with Gloria, instructor wastewater treatment plant and2 students from [facility] I found her to be not [...] rce(s) Supporting Document(s) ID Date Data Source [id number] 04/13/2021 10:06:00 PM EDT [facility] Name Value Range Interpretation Code Description Data Stephanie rce(s) Supporting Document(s) WBC 11.79 x10E3/uL 4.0-10.5 [facility] RBC 4.27 x10E6/uL 4.20-5.40 [facility] Hemoglobin 12.5 g/dL 12.0-16.0 [facility] Hematocrit 37.7 % 37.0-47.0 [facility] MCV 88.3 fL 81.0-99.0 [facility] MCH 29.3 pg 27.0-31.0 [facility] MCHC 33.2 g/dL 32.7-35.6 [facility] RDW 12.4 % 11.5-14.0 [facility] Platelet count 262 x10E3/uL 150-450 [facility] MPV 10.3 fl 6.9-9.5 H [facility] Neutrophils 75.6 % 34-64 H [facility] Lymphocytes 17.2 % 25-45 L [facility] Monocytes 5.9 % 1.7-10.6 N [facility] Eosinophils 0.6 % 0.4-7.0 [facility] Basophils 0.3 % 0.1-2.0 [facility] Imm. Gran. 0.4 % 0.1-2.0 [facility] Abs. Neutro. 8.92 x10E3/uL 1.2-7.6 [facility] Abs. Lymph. 2.03 x10E3/uL 1.0-3.5 [facility] Abs. [place]. 0.69 x10E3/uL 0.1-1.0 [facility] Eosin. 0.07 x10E3/uL 0.1-0.7 [facility] Abs. Baso. 0.03 x10E3/uL 0.0-0.1 N [facility] l Abs. Imm. Gran. 0.05 x10E3/uL 0.0-0.1 [facility] spital ANRBC% 0 % 0 [facility] ID Date Data Source [id number] 04/13/2021 09:38:00 PM EDT [facility] Name Value Range Interpretation Code Description Data Stephanie rce(s) Supporting Document(s) GLU 95 mg/dL 70-110 [facility] Patients taking Sulfasalazine may have f alsely depressedGlucose levels. Patients taking Sulfapyridine may havefalsely elevated Glucose levels. Patients should be drawnfor Glucose before the initial administration of eitherdrug. BUN 14 mg/dL 7-23 [facility] CRE 0.672 mg/dL 0.500-1.300 [facility] GFR > 60 mL/min [facility] CHLORIDE 110 mmol/L 99-110 [facility] NA 141 mmol/L 136-147 [facility] POTASSIUM 4.5 mmol/L 3.5-5.1 [facility] TCO2 23 mmol/L 20-33 [facility] ANION GAP 12.5 10.0-20.0 [facility] CA 8.6 mg/dL 8.3-10.7 [facility] ALKALINE PHOS 125 U/L 45-117 H [facility] TP 8.0 g/dL 6.0-7.8 [facility] ALB 3.6 g/dL 3.5-5.0 [facility] ESRD Dialysis patient Albumin reference range: 2.9-4.4 g/dL GL 4.4 g/dL 2.3-3.5 [facility] A/G 0.8 1.0-2.5 L [facility] T. BILIRUBIN 0.3 mg/dL 0.1-1.1 N [facility] [place] Total Bilirubin is n ot recommended forpatients undergoing treatment with eltrombopag (Promacta)due to the potential for falsely elevated results. ALTI 51 U/L 6-54 [facility] Patients taking Sulfasalazine and/or Sul fapyridine may havefalsely depressed ALT levels. Patients should be drawn forALT before the initial administration of either drug. AST 32 U/L 6-38 [facility] Patients taking Sulfasalazine and/or Sul fapyridine may havefalsely depressed AST levels. Patients should be drawn forAST before the initial administration of either drug. ID Date Data Source [id number] 04/13/2021 09:38:00 PM EDT [facility] Name Value Range Interpretation Code Description Data Stephanie rce(s) Supporting Document(s) SALICYLATE < 1.7 mg/dL 0.0-20.0 [facility] ID Date Data Source [id number] 04/13/2021 09:38:00 PM EDT [facility] Name Value Range Interpretation Code Description Data Stephanie rce(s) Supporting Document(s) ACETAMINOPHEN < 2.0 ug/mL 0-30 [facility] Date Data Source [id number] 04/13/2021 09:38:00 PM EDT [facility] Name Value Range Interpretation Code Description Data Stephanie rce(s) Supporting Document(s) ETOH 0.007 g/dL NONE DETECTED [facility] ID Date Data Source [id number] 04/13/2021 08:47:00 PM EDT [facility] Name Value Range Interpretation Code Description Data Stephanie rce(s) Supporting Document(s) LCOVID-19, CORDELL NEGATIVE [facility] This lab was ordered by [facility] and reported by [facility]. ID Date Data Source [id number] 04/13/2021 09:21:00 PM EDT [facility] Name Value Range Interpretation Code Description Data Stephanie rce(s) Supporting Document(s) COVID-19, CORDELL NEGATIVE NEGATIVE N [facility] Methodology: Isothermal Nucleic Acid Amp [...] Emergency Use Authorization. ID Date Data Source [id number] 04/13/2021 09:48:00 PM EDT [facility] Name Value Range Interpretation Code Description Data Stephanie rce(s) Supporting Document(s) PCP VISTA NEG NEGATIVE [facility] MINIMUM LEVEL OF DETECTION IS 25 ng/ml BENZODIAZEPINES NEG NEGATIVE [facility] al MINIMUM LEVEL OF DETECTION IS 200 ng/ml COCAINE VISTA NEG NEGATIVE [facility] MINIMUM LEVEL OF DETECTION IS 300 ng/ml AMPHETAMINES NEG NEGATIVE [facility] al MINIMUM LEVEL OF DETECTION IS 1000 ng/ml BARBITURATES NEG NEGATIVE [facility] al CUTOFF CONCENTRATION IS 200 ng/ml CANNABINOIDS NEG NEGATIVE [facility] al CUTOFF CONCENTRATION IS 50 ng/ml METHADONE VISTA NEG NEGATIVE [facility] MINIMUM LEVEL OF DETECTION IS 300 ng/ml OPIATE VISTA NEG NEGATIVE [facility] MINIMUM DETECTION LEVEL IS 300 ng/ml ID Date Data Source [id number] 04/13/2021 09:38:00 PM EDT [facility] Name Value Range Interpretation Code Description Data Stephanie rce(s) Supporting Document(s) URINE COLOR Yellow [facility] UAPR Turbid [facility] UGLU Negative NEGATIVE [facility] URINE BILIRUBIN Negative NEGATIVE [facility] al UKET Negative NEGATIVE [facility] USG 1.017 1.010-1.025 [facility] UBLO Negative NEGATIVE [facility] UpH 7.5 5.0-8.0 [facility] UPRO Negative Negative [facility] UUB 1.0 mg/dL 0.2-1.0 N [facility] UNIT Negative Negative N [facility] ULEU Trace Negative N [facility] ID Date Data Source [id number] 04/13/2021 09:38:00 PM EDT [facility] Name Value Range Interpretation Code Description Data Stephanie rce(s) Supporting Document(s) URINE RBC 0-2 RBCs/HPF NONE SEEN N [facility] URINE WBC 0-2 WBCs/HPF NONE SEEN [facility] URINE BACTERIA Few NONE SEEN N [facility] l URINE EPI. Many NONE SEEN [facility] URINE CRYSTAL MANY AMORPHOUS NONE SEEN N [facility] pital ID Date Data Source [id number] 04/13/2021 09:38:00 PM EDT [facility] Name Value Range Interpretation Code Description Data Stephanie rce(s) Supporting Document(s) HCG QUAL URINE Negative Negative N [facility] l ID Date Data Source [id number] 04/14/2021 04:43:00 PM EDT [facility] Physician DocumentationClaxton-Naveen Hinkle edical CenterName: Yareli DuvallAge: 20 yrsSex: FemaleDOB: 2000MRN: [id number] Date: 04/13/2021Time: 20:28Account#: [id number] MD: NONE, - Per PatientED Physician Santiago RajanDiszach Summary:04/14/21 16:06Discharge OrderedLocation: Home Self Tumkmk8Ujojvtz: eueudvalf5Qiiywbca: are arbymkbtazm2Aecjtlrkr: Nsmsqkqw7Tlfequluf- Major depressive disorder, recurrent, nyxyumejoazav3Zdqiucyr:rf2- With: Private Physician- When: 2 - 3 days- Reason: Recheck today's complaints, Continuance of careDischarge Instructions:- Discharge Summary Wmyguzf78- JTSVBFNKOFvi0Qrbyz:- Medication Reconciliationrf2- Medication Reconciliation Form - 2nd Cfbwpm8SQR:04/320:42 This 20 yrs old White Female presents to ER via Police with complaints ofPsych Problem.th420:42 Associated signs and symptoms: Pertinent negatives: abdominal pain, chestpain, fever, dq9gbbpeemb, nausea, shortness of breath, vomiting. Patient is [facility]. Patient is well-known to the ER. She has been seenmany timesin the past for the same. She was last here on April 09 and was admitted atthattime. Patient reports that [facility] the lastcou[facility] dayswith suicidal ideation. She [...] 400 mg intramuscular suspension,extended release syringe 400 qyfzzhf12 days3. ibuprofen 400 mg Oral tablet 1 [...] Eyes: Negative for acute changes.ENT: Negative for rt3ahowk discharge, rhinorrhea, sinus congestion. Neck: Negative for [...] 53.26 (149.69 kg, 167.64 cm)jw523:48 Pain Scale: Obnohzf490/0411:45 Pain Scale: Jxnlqgx936:43 Pain Scale: AdulttlmMDM:04/320:34 Patient medically screened.th410/0406:41 Data reviewed: vital signs, nurses notes, lab test result(s). ED course:Patient eo7puokaide stable in the ER. Patient here for mental health evaluation as above.Case isendorsed to Dr. Rajan at change of shift pending PSA evaluation disposition.Patient ismedically clear and has been cooperative..07:32 Data reviewed: lab test result(s), CBC, drug level(s), acetaminophen,alcohol, nj6iepsyhxvem, electrolytes, hepatic panel, urinalysis, urine drug screen,COVID-19.Transition of care: Care assumed from Nils Argueta MD.16:06 ED course: Patient being recommended for discharge home by Dr. Patten with adiagnosis of wd4onfmsrfsnv.04/320:39 Order name: Acetaminophen Level; Complete Time: :91gg4780:39 Order name: CBC with diff; Complete Time: 07:73ln430/0407:33 Interpretation: Abnormal: WBC 11.79; Mild leukocytosis.0:39 Order name: CMP; Complete Time: :05zw3760:39 Order name: COVID-19 PROFILE+LAB; Complete Time: :0:39 Order name: ETOH; Complete Time: :0:39 Order name: Glucose; Complete Time: 07:92cd180/0407:32 Interpretation: Within normal limits.0:39 Order name: Salicylate Level; Complete Time: :72up6840:39 Order name: Triage - Drug Screen; Complete Time: :61ot1570:39 Order name: UA; Complete Time: :70zb0710:39 Order name: Urine HCG Qualitative; Complete Time: :11ys3860:39 Order name: Diet - Mental Health Tray (call dietary); Complete Time:23:49 kk210:39 Order name: Belongings List; Complete Time: 05:27gv416/0320:39 Order name: Document Weight and Height for BMI; Complete Time: 23::39 Order name: Mental Health Evaluation; Complete Time: ::39 Order name: Mental Health Level 3; Complete Time: ::39 Order name: VS q shift; Complete Time: ::49 Order name: Medically Cleared for Eval by-Psychosocial, Motivational Speaker (.PSA)qd7Bjpazpbub Medications:04/322:16 Drug: Ibuprofen 600 mg [ibuprofen 600 mg tablet (1 tabs)] Route: PO;kk223:48 Follow up: Pain 3 Jeytlpu961/0410:16 Drug: Propranolol 10 mg Route: PO;ef110:46 Follow up: Response: No adverse nrdkkocamz516:16 Drug: sertraline 50 mg Route: PO;ef110:46 Follow up: Response: No adverse lkaybeqkjn702:16 Drug: Topiramate 75 mg Route: PO;ef110:45 Follow up: Response: No adverse qhrzxvrdje656:16 Drug: Loratadine 10 mg Route: PO;ef110:45 Follow up: Response: No adverse tabflmzgwq649:17 Drug: ARIPiprazole 10 mg Route: PO;ef110:46 Follow up: Response: No adverse qlyeqerbbr245:45 Drug: Acetaminophen Tablet 650 mg Route: PO;ef111:45 Follow up: Pain 0/10 Oxmedxi6Qrwfwhnvmf:Disp atcZakia Cormier RN RN nf4PjvroikNils Argueta MD MD xx3OsxqpFortunato humphrey RN RN sl3SggmojftAmi arthur RN RN at4EfaxySantiago betts MD MD rf2 Name Value Range Interpretation Code Description Data Stephanie rce(s) Supporting Document(s) ID Date Data Source [id number] 04/14/2021 04:43:00 PM EDT [facility] terName: Yareli Domingo: 20 yrsSex: FemaleDOB: 2000MRN: [id number] Date: 04/13/2021Time: 20:28Account#: [id number] MD: NONE, - Per PatientDiagnosis: Major depressive disorder, recurrent, unspecifiedPresentation:04/320:29 Presenting complaint: Patient states: [facility] ga5Qkkdqsc to this ED by [facility]. Patient reports that she escaped from the [facility]. International Travel Fever No. Coronavirus Screening: Have you beendiagnosed with COVID-19 in the past 30 days? no Are you currently on [facility]by[facility]? no Flu-like symptoms reported in the last 14 days: no. Have youhadclose contact with confirmed or suspected COVID-19 case? no Do you live in asettingwhere a large of amount of people live, such as long-term, family care,nursing home, etc?yes. Have you traveled to a location with widespread or ongoing COVID-19communityspread or outside of [facility]? no Have you traveled internationally or hadcontact withsomeone that has traveled and has been ill in the past 3 weeks? no Have youreceivedthe COVID vaccine? Yes Sophia x 1 dose. Communicable Disease Screen: Negativeforfever>/= 100 degrees Fahrenheit. Communicable disease screen is negative. (-)rash orunusual skin lesion (-) travel/contact with traveler (-) respiratory symptoms.Communication Speaks [place] Citizen? Yes, is preferred language.20:29 Acuity: Triage 1rl971:29 Method Of Arrival: Ohyczdbb118:30 Acuity Assignment: Triage 1qn1Armygm Assessment:20:31 General: Appears in no apparent distress, [...] 400 mg intramuscular suspension,extended release syringe 400 qvnorod66 days3. ibuprofen 400 mg Oral tablet 1 [...] threats or abuse. Denies injuries from another.Nutritional ei6zgvsrefrv: No deficits noted. Offer of HIV testing: patient was previouslyofferedscreening. Fall Risk None identified.Assessment:20:49 General: see triage assessment.kk222:23 Reassessment: patient hitting head on wall, states that we can't doanything to help reva because she can't cope without her music. [...] appears in no apparent distress at this time.dr4Fmvgtvoargoo:04/322:01 Mental health consult is initiated at 22:01.sm822:12 SAFE Act Report Not Completed. Intervention: Observation Level 3.Referral Information: hc0Nlsjyxukyn referral is generated by a police agency: [employer]. The patient wasreferred forevaluation because suicidal ideations.22:23 Subjective: The patients chief complaint is Pt presents to the ED by [place]for suicidal nu8gjfcgouph. As PSA was going into her room pt was tapping her head off the wall.Pt wasdischarged from our unit on Wednesday (04/11), she then went to [facility] late Wednesday night. Pt had walked out of [facility] and made toback to TLSwhere the [...] has a long [facility] She has a history of Anxiety, Bipolar, Depression, andBPD. Pt hasa history of reported suicide attempts by overdosing. Pt denies hallucinations.Pt doesnot present with any delusional thoughts. Delusions are denied, Hallucinationsaredenied. Patient's mood is depressed, Having thoughts of suicide. Deniessuicidal plan.homicide: denies plan. Homicidal thoughts directed towards mother.22:30 Narrative PSA spoke to Dulce at [facility] ([phone]). She states that itis "the same sm8old thing" as to why the pt is in the ED. She states that the pt was dischargedfromour unit then went to [facility] for suicidal ideations. She states that thept madeit back to them in scrubs and stated that she asked [facility] what wouldhappen if shewalked out which they told her that they would have to call the police. Policethenshowed up at [facility] and brought her to us.22:33 Patient reports history of anxiety, Bipolar Disorder, Depression, self-mutilation, zs1pxcrfch attempt: pt reports multiple by overdosing Mental Health Admissions:multipletimes at multiple facilities Current Outpatient Mental Health Services:[facility]iat[facility] [place] Living Environment: Family / HomeSupport: [facility]The [facility] currently lives in a [facility] apartment. The patient is single. Detox /RehabAdmissions: None. Current Outpt Alcohol or Substance Abuse Services: None.22:34 Patient presents to Emergency Department with the following symptomswithin the past 2 su4cwoyf: suicidal ideation with no plan. Patient presents [...] patient status is not currently needed orappropriate. lf6Myjrayfqrfoa: Psych MD informed of patient's status at 22:30, ED MD notified ofpatients status at 22:46. Disposition: Medically cleared for disposition by Meet.Psychiatric Consult is performed by phone with Dr David Gray-HILDA The patientis to betransferred to bed availability facility. Legal Status: Patient's legal statuswill beDirectory of [facility] Services: 37. Commitment papers are completed. DSM-VDX [place] Idiagnosis: Depression, Unspecified. Insurance Pre-Certification: Not Required.IMHUAdmission [...] Awaiting referral hospitalacceptance.The patient is not a sales and service advisor or dependent. [place] SuicideSeverityRating Scale: Suicidal Ideation Rating 2; Intensity of Ideations Rating 23;SuicidalBehavior Rating 0.04/416:02 Narrative Pt will be discharged home per Dr. Patten. Pt can contract [facility] and denies am11SI/HI. Pt will follow up with outpatient services. Pt provided contactinformation forPSA and [employer]. Pt will come to the ED if problems continue or worsen.Psych:04/320:50 Subjective: Delusions are denied, Hallucinations are denied Havingthoughts of suicide. rg0Rsilum suicidal plan. Objective: Patient is cooperative, Speech [...] 53.26 (149.69 kg, 167.64 cm)jw523:48 Pain Scale: Fsiomax346/0411:45 Pain Scale: Skhqknd556:43 Pain Scale: AdulttlmED Course:04/320:29 Patient arrived in [...] Physician role handed off by Nils Argueta, IVhl097:32 Santiago Rajan MD is Attending Physician.rf208:16 Diet tray given.wx2Cetxdfoockqb Medications:04/322:16 Drug: Ibuprofen 600 mg [ibuprofen 600 mg tablet (1 tabs)] Route: PO;kk223:48 Follow up: Pain 3/10 Zfnspjz334/0410:16 Drug: Propranolol 10 mg Route: PO;ef110:46 Follow up: Response: No adverse metneovmmw249:16 Drug: sertraline 50 mg Route: PO;ef110:46 Follow up: Response: No adverse dkevouwmli487:16 Drug: Topiramate 75 mg Route: PO;ef110:45 Follow up: Response: No adverse oaordpmetm837:16 Drug: Loratadine 10 mg Route: PO;ef110:45 Follow up: Response: No adverse lumfsnzmvi707:17 Drug: ARIPiprazole 10 mg Route: PO;ef110:46 Follow up: Response: No adverse zdwsvabzeg633:45 Drug: Acetaminophen Tablet 650 mg Route: PO;ef111:45 Follow up: Pain 0/10 Njzpqry4Xhezqla:16:06 Discharge ordered by .rf216:43 Condition: stable.tlm16:43 Discharge inst ructions given to patient, Instructed on dischargeinstructions, followup and referral plans. Demonstrated understanding of instructions.16:43 Discharge Assessment: Patient awake, alert and oriented x 3. Nocognitive and/orfunctional deficits noted. Patient verbalized understanding of dispositioninstructions. Patient verbalized understanding of disposition instructions.Patient hasno functional deficits.16:43 Patient left the ED.tlmSignatures:Magaly Gray, RN RN tlmKnight, Zakia RN RN jo1RztvfqgNils bansal MD MD mg6UecknFortunato humphrey RN RN px2HdcyqiavAmi dang RN RN xk9CsriIna Jack am11MeasheawUsha zi6Hnhtc, MD SARAH Henderson th2Ftynpgecuge: (The following items were deleted from the [...] Pt presents to the EDby [employer] for hz5pcoqlugm ideations. A s PSA was going into her room pt was tapping her head offthewall. Pt was discharged from our unit on Wednesday (04/11), [facility]. Pt had walked [facility] back to [facility] where the police picked her up and [...] Name Value Range Interpretation Code Description Data [facility] Supporting Document(s) ID Date Data Source [id number] 04/12/2021 04:52:00 AM [facility] Name Value Range Interpretation Code Description Data [facility](s) Supporting Document(s) Sodium 138 mmol/L 136-145 Normal (applies to non-numeric resul ts) [facility] Potassium 3.5-5.1 Normal (applies to non-numeric resul ts) [facility] Chloride 102 mmol/L 98-107 Normal (applies to non-numeric resul ts) [facility] Carbon Dioxide CO2 21-32 Normal (applies to non-numer ic results) [facility] Anion Gap 5.0-16.0 Normal (applies to non-numeric resul ts) [facility] BUN 13 mg/dL 7-18 Normal (applies to non-numeric results) [facility] Creatinine,Serum 0.7-1.2 Normal (applies to non-numeric results) [facility] GFR >60 Normal (applies to non-numeric results) [facility] Glucose Level 97 mg/dL 60-99 Normal (applies to non-numeric re sults) [facility] Reference range is only applicable when patient is fasting Note the following drug interference: Sulfasalazine Sulfapyridine Can see falsely depressed Can see falsely elevated result with up to 17% results with up to 11% decrease in measurement increase in measurement Recommend patients be collected for this test prior to administration of either drug. Calcium 8.5-10.1 Normal (applies to non-numeric resul ts) [facility] Bilirubin,Total 0.1-1.9 Normal (applies to non-numeric results) [facility] SGOT(AST) 30 U/L 15-37 Normal (applies to non-numeric resul ts) [facility] Note the following drug interference: Sulfasalazine Sulfapyridine Can see falsely depressed Can see falsely elevated result with up to 10% results with up to 10% decrease in measurement increase in measurement Recommend patients be collected for this test prior to administration of either drug. SGPT(ALT) 54 U/L 12-78 Normal (applies to non-numeric resul ts) [facility] Note the following drug interference: Sulfasalazine Sulfapyridine Can see falsely depressed Can see falsely elevated result with up to 29% results with up to 10% decrease in measurement increase in measurement Recommend patients be collected for this test prior to administration of either drug. Alkaline Phosphatase 130 U/L 38-126 Above high normal [facility] can increase Alkaline Phosp le vels up to 2 times the normal adult value. Normal values for children and adolescents are 2 to 3 times the normal adult value. Total Protein 6.0-8.2 Above high normal [facility] Albumin Level 3.4-5.0 Normal (applies to non-numeric re sults) [facility] ID Date Data Source [id number] 04/12/2021 04:52:00 AM EDT [facility] Name Value Range Interpretation Code Description Data Stephanie rce(s) Supporting Document(s) Acetaminophen 10.0-30.0 Below low normal [facility] ID Date Data Source [id number] 04/12/2021 04:52:00 AM EDT [facility] Name Value Range Interpretation Code Description Data Stephanie rce(s) Supporting Document(s) Magnesium 1.8-2.4 Normal (applies to non-numeric resul ts) [facility] ID Date Data Source [id number] 04/12/2021 04:52:00 AM EDT [facility] Name Value Range Interpretation Code Description Data Stephanie rce(s) Supporting Document(s) Troponin I 0.000-0.056 Normal (applies to non-numeric resu lts) [facility] ID Date Data Source [id number] 04/12/2021 04:52:00 AM EDT [facility] Name Value Range Interpretation Code Description Data Stephanie rce(s) Supporting Document(s) Salicylate 2.8-20.0 Below low normal [facility] ospital ID Date Data Source [id number] 04/12/2021 04:51:00 AM EDT [facility] Name Value Range Interpretation Code Description Data Stephanie rce(s) Supporting Document(s) Ethanol Less than 10.0 Normal (applies to non-numeric r esults) [facility] ID Date Data Source [id number] 04/12/2021 04:23:00 AM EDT [facility] Value Range Interpretation Code Description Data Stephanie rce(s) Supporting Document(s) White Blood Count 3.5-10.5 Normal (applies to non-numeri c results) [facility] Red Blood Count 3.90-5.00 Normal (applies to non-numeric results) [facility] Hemoglobin 12.0-15.5 Normal (applies to non-numeric resul ts) [facility] Hematocrit 34.9-44.5 Normal (applies to non-numeric resul ts) [facility] Mean Corpuscular Volume 81.2-95.1 Normal (applies to non- numeric results) [facility] Mean Corpuscular Hgb 25.6-32.2 Normal (applies to non-num deena results) [facility] Mean Corpuscular Hgb Conc 32.0-36.0 Normal (applies to no n-numeric results) [facility] Red Cell Distribution Width 11.9-15.5 Normal (appli es to non-numeric results) [facility] Platelet Count 306 x10 3/uL 150-450 Normal (applies to non-numeric results) [facility] Mean Platelet Volume 9.4-12.4 Normal (applies to non-num deena results) [facility] Neutrophils% (Auto) 31.0-71.0 Normal (applies to non-nume frank results) [facility] Lymphocytes% (Auto) 20.0-55.0 Normal (applies to non-nume frank results) [facility] Monocytes% (Auto) 4.0-12.0 Normal (applies to non-numeri c results) [facility] Eosinophils% (Auto) 1.0-8.0 Normal (applies to non-nume frank results) [facility] Basophils% (Auto) 0.0-2.0 Normal (applies to non-numeri c results) [facility] Immature Granulocytes% (Auto) 0.0-2.0 Normal (alexander lies to non-numeric results) [facility] Neutrophils# (Auto) 1.50-6.20 Above high normal [facility] Lymphocytes# (Auto) 1.20-4.00 Normal (applies to non-nume frank results) [facility] Monocytes# (Auto) 0.00-0.90 Normal (applies to non-numeri c results) [facility] Eosinophils# (Auto) 0.00-0.50 Normal (applies to non-nume frank results) [facility] Basophils# (Auto) 0.00-0.20 Normal (applies to non-numeri c results) [facility] Immature Granulocytes# (Auto) 0.00-7.00 No rmal (applies to non-numeric results) [facility] ID Date Data Source [id number] 04/12/2021 03:50:00 AM EDT [facility] Name Value Range Interpretation Code Description Data Stephanie rce(s) Supporting Document(s) Respiratory specimen severe acute respir atory syndrome coronavirus 2 (SARS-CoV-2) RNA Not Detected [facility] This lab was ordered by [facility] and reported by . ID Date Data Source [id number] 04/12/2021 05:08:00 AM EDT [facility] Name Value Range Interpretation Code Description Data Stephanie rce(s) Supporting Document(s) RP Internal Control Passed Normal (applies to non-nume frank results) [facility] Adenovirus None Detect Normal (applies to non-numeric resu lts) [facility] Coronavirus 229E None Detect Normal (applies to non-numeri c results) [facility] Coronavirus HKU1 None Detect Normal (applies to non-numeri c results) [facility] Coronavirus NL63 None Detect Normal (applies to non-numeri c results) [facility] Coronavirus OC43 None Detect Normal (applies to non-numeri c results) [facility] SARS-CoV-2 Not Detect Normal (applies to non-numeric resul ts) [facility] Negative results do not preclude SARS-Co V-2 infection and should not be used as the sole basis for treatment or other patient management decisions. Negative results must be combined with clinical observations, patient history, and epidemiological information. Testing was performed using the Get10 real-time nested multiplexed PCR Respiratory Panel 2.1 [...] Detect Normal (applies to non-n umeric results) [facility] Rhino/Enterovirus None Detect Normal (applies to non-numer ic results) [facility] Influenza A None Detect Normal (applies to non-numeric res ults) [facility] Influenza B None Detect Normal (applies to non-numeric res ults) [facility] Parainfluenza Virus 1 None Detect Normal (applies to non-n umeric results) [facility] Parainfluenza Virus 2 None Detect Normal (applies to non-n umeric results) [facility] Parainfluenza Virus 3 None Detect Normal (applies to non-n umeric results) [facility] Parainfluenza Virus 4 None Detect Normal (applies to non-n umeric results) [facility] Respiratory Syncytial Virus None Detect Norm al (applies to non-numeric results) [facility] Bordetella Parapertussis None Detect Normal (applies to non-numeric results) [facility] Bordetella Pertussis None Detect Normal (applies to non-nu meric results) [facility] Chlamydia Pneumoniae None Detect Normal (applies to non-nu meric results) [facility] Mycoplasma Pneumoniae None Detect Normal (applies to non-n umeric results) [facility] Methodology: Multiplexed PCR Refer ence Range: None detected ID Date Data Source [id number] 04/12/2021 04:42:00 AM EDT [facility] Collected By: Nurse Initials: cs Time Collected: 324 Collected By: Nurse Initials: cs Time Collected: 324 Name Value Range Interpretation Code Description Data Stephanie rce(s) Supporting Document(s) Color,Urine Colorl-Dk Y Normal (applies to non-numeric res ults) [facility] Clarity,Urine Clear [facility] Specific [place],Urine 1.005-1.030 Normal (applies to non- numeric results) [facility] pH,Urine 5.0-8.0 Normal (applies to non-numeric resul ts) [facility] Protein,Urine Negative [facility] Glucose,Urine Negative Normal (applies to non-numeric re sults) [facility] Ketones,Urine Negative [facility] Blood,Urine Negative Normal (applies to non-numeric resu lts) [facility] Bilirubin,Urine Negative Normal (applies to non-numeric results) [facility] Urobilinogen,Urine 0.2-1.0 Normal (applies to non-numer ic results) [facility] Leukocyte Esterase,Urine Negative Normal (applies to non -numeric results) [facility] Nitrite,Urine Negative Normal (applies to non-numeric re sults) [facility] ID Date Data Source [id number] 04/12/2021 04:42:00 AM EDT [facility] Collected By: Nurse Initials: cs Time Collected: 324 Collected By: Nurse Initials: cs Time Collected: 324 Name Value Range Interpretation Code Description Data Stephanie rce(s) Supporting Document(s) RBC,Urine None Seen Normal (applies to non-numeric resul ts) [facility] WBC,Urine None Seen [facility] Casts,Urine None Seen Normal (applies to non-numeric resu lts) [facility] Squamous Cells,Urine None Seen [facility] Amorphous Sediment,Urine None Seen [facility] Bacteria,Urine None Seen [facility] ital ID Date Data Source [id number] 04/12/2021 04:32:00 AM EDT [facility] Name Value Range Interpretation Code Description Data Stephanie rce(s) Supporting Document(s) UDS Benzodiazepines Screen Negative Normal (applies to n on-numeric results) [facility] UDS Cocaine Screen Negative Normal (applies to non-numer ic results) [facility] UDS Ampetamine Screen Negative Normal (applies to non-nu meric results) [facility] UDS Cannabinoids Screen Negative Normal (applies to non- numeric results) [facility] UDS Opiates Screen Negative Normal (applies to non-numer ic results) [facility] UDS Barbiturates Screen Negative Normal (applies to non- numeric results) [facility] Threshold Levels Benzodiazepine 200 ng/mL Cocaine 300 ng/mL Amphetamines 1000 ng/mL Cannabinoids (THC) 50 ng/mL Opiates 300 ng/mL Barbiturates 200 ng/mL All positive findings are presumptive and unconfirmed. Confirmation of positive results are performed only at request of provider. Unconfirmed results must not be used for non-medical purposes (i.e. preemployment and legal purposes) ID Date Data Source [id number] 04/11/2021 01:49:00 PM EDT [address] DISCHARGE SUMMARYPATIENT NAME: YARELI HATCH MR#: [id number] PHYSICIAN: BOGDAN MACIAS MDAUTHOR: Bogdan Macias MD DATE: 04/09/21 #: [id number] DATE: 04/11/21HistoryIdentificationThis is a 10-chlgl-xtj white female.Chief Complaint"I am having suicidal thoughts and anxiety."Reason for AdmissionPatient is well known to us. She presented to the ER with the complaint ofincreased suicidal ideations after an argument with her significant other. Shehas a history of suicidal ideations and multiple inpatient treatment. Patientcannot contract for safety. Hence, she was hospitalized.History of Presenting IllnessPatient was seen today along with the instructor wastewater treatment plant, Gloria, and a PAstudent from [facility]. She presented to the ER with Josué due to patient contacting them stating with [...] hasn't beensleeping for 3 weeks.Patient was at [facility] since and transferred to [facility] and discharged. She states that she [facility] [place] [facility] and[facility] there and has been trying to be admitted to several hospitalsthere. Stated she cannot contract for safety and thus requested an inpatienttreatment. She reported increased stress due to not feeling safe at her TLSresidence due to another resident, increased family conflict due to beingtransgender and ex being in correction. She also reported that she was notfollowing the rule of [facility]. She is not diligent with medications.Past Psych/Medical HistoryPsychiatric HistoryShe has long history of psychiatric problem including bipolar disorder, ADHD,anxiety, and depression with numerous hospitalizations. She has attemptedsuicide multiple times by overdose and by cutting herself. She was dischargedjust one day before her last hospitalization. [facility] [place]. She is on AOT since 01/09/21.Medical HistoryDenies [...] she would prefer to bedischarged back to [facility] as she is no longer feeling suicidal. [...] She also [facility] and she would come back into thehospital if needed as well. She also denies having any medical issues, andwanting to be seen by therapist and psychiatrist and her primary [facility]. She was also offered inpatient outpatient chemical [...] 240Continue taking these medications:IBUPROFEN (IBUPROFEN) 400 MG [id number] MILLIGRAM Orally EVERY 6 HOURS NEEDED as needed for HeadacheQty = 21Loratadine* (Claritin*) 10 MG GVRNQM66 MILLIGRAM Orally DAILYDays = 30 Qty = 30PROPRANOLOL HCL (Inderal*) 10 MG HMMDEB61 MILLIGRAM Orally TWICE DAILYDays = 30 Qty = 60TOPIRAMATE (TOPAMAX) 25 MG KIPFIT16 MILLIGRAM Orally DAILYDays = 60 Qty = 30SERTRALINE (Zoloft*) 50 MG PYYAPT682 MILLIGRAM Orally DAILYDays = 30 Qty = 30MONTELUKAST SODIUM (MONTELUKAST) 10 MG GCRYUX38 MILLIGRAM Orally DAILYDays = 30 Qty = 30Aripiprazole* (Abilify*) 10 MG WFEOZZ92 MILLIGRAM Orally DAILYPRAZOSIN HCL (PRAZOSIN HCL) 2 MG CAPSULE2 MILLIGRAM Orally AT BEDTIMEOlanzapine* (Zyprexa*) 5 MG TABLET5 MILLIGRAM Orally AT BEDTIMEAripiprazole (Abilify Maintena) 400 MG SUSER.GCZ766 MILLIGRAM Intramuscularly T88LFoo = 1Instructions:last im inj received 04/03/21Discharge Activity: As toleratedDischarge diet: RegularFollow-upFollow up with your Primary care physicianFollow up with therapiest and psychiatristrecommended outpt chemical dependencyReferralsOrdered [place] [address] [phone]) on April 15 at9:[address] Giles.[facility] [place], [place] [id number] [phone] on April 18 at2:00 pm with Grayson.DATE SIGNED: 04/11/21 Electronically Melania dTIME SIGNED: 1353 BOGDAN MACIAS MD Name Value Range Interpretation Code Description Data Stephanie rce(s) Supporting Document(s) ID Date Data Source [id number] 04/11/2021 09:25:00 AM EDT [place], [place] [address]PATIENT NAME: YARELI HATCH#: [id number] PHYSICIAN: BOGDAN MACIAS MDACHICO #: [id number] ADM. DATE: 04/09/21PATIENT : 00 DISCH. DATE: [50}DISCHARGE SUMMARYMHU discharge planNicotine Replacement TherapySmoking Status Current some day smokerPrescribed at discharge Rx offered, pt refusedAlcohol/Drug DisorderAlcohol or Drug Disorder counseling prescribedPersonal Care InstructionsDischarge Activity: As toleratedDischarge diet: RegularFollow Up CareFollow Up:Follow up with your Primary care physicianFollow up with therapiest and psychiatristrecommended outpt chemical dependencyPriority ItemsUrgent/Important items that need to be addressed at p [facility] care follow-upappointmentDischarge InformationDISCHARGE INFORMATION* Thank you for choosing [facility] and allowing us toserve you* Our Goal is to provide the highest quality of care.* This discharge information is to help you better understand your diagnosisand medication* Avoid taking msdi-zrd-wjiully medicines unless approved by your physician.* Take your medications as prescribed. DO NOT stop any medications unlessapproved first* Weigh yourself daily. Report any gain of 5 lbs in a week* 24 Hour Crisis HOTLINE available: Call Reachout at [phone]* Chem. Dependency: Walk in Clinics [place] ([phone]) and [place] ([phone]) anytime Wednesday thru Wednesday 8 to 10am. [place] ([phone]) anytimeWednesday thru Wednesday 8 to 10am. [place] ([phone]) Wednesday or Wednesday from 8to 10am (Bring $30 to First [facility]) SMOKIN G CESSATION* Smoking is dangerous to your health. It delays the healing process, andworks against your medications. Not smoking will improve your health* Our hospital participates with the Opt-to-Quit program. You will be contactedafter discharge by the [facility] Smoker's Quitline for support with tobaccocessation. You have the option once contacted to refuse this service.* You can also go online to www.Serious Parody. Free nicotine replacementsare available Attention* You should contact your follow up Physician as it is important that you lethim or her check you and report any new or remaining problems. If yourcondition worsens, follow up with your provider or visit our EmergencyDepartment. If you received pain medication, anxiety medications, musclerelaxants, or any medication that causes drowsiness, you cannot operatemachiSLR Consultingy, power tools, or drive.Safe ActSafe Act Completed NoiStopiStop completed NoEND ENDDICT: 04/11/21924 Electronically SignedTRANS:04/11/21924 BOGDAN MACIAS MDTRANS BY:DATE SIGNED:04/11/21TIME SIGNED: 09REPORT COPY TO: Name Value Range Interpretation Code Description Data Stephanie rce(s) Supporting Document(s) ID Date Data Source [id number] 04/10/2021 01:59:00 PM EDT [facility] [place] [address] [id number] HEALTH PROGRESS NOTEPATIENT NAME: YARELI HATCH PHYSICIAN: BOGDAN MACIAS, MDAUTHOR: Colleen SMITH,DhruvADM. DATE: 04/09/21 MR#: [id number] NOTE DATE: 04/10/21 RM#: [id number] TIME: 1402 is a 89-hskwr-vao white female.CC/Hx Present Illness"I am having suicidal thoughts and anxiety."Events Since Last EntryPatient reported that she has been feeling better, she stated that she wouldlike to go back to [facility], she stated that she was dealing with [...] rce(s) Supporting Document(s) ID Date Data Source [id number] 04/10/2021 07:18:00 AM EDT [address] HEALTH HISTORY AND PHYSICALPATIENT NAME: YARELI HATCH MR#: [id number] PHYSICIAN: BOGDAN MACIAS MDAUTHOR: Evi SMITH,S. DATE: [...] Home Medication ListAllergiesCoded Allergies:risperidone (08/04/19)ExamVital SignsVital Signs-24 HRS09/842635Njlj 98.8Pulse 80Resp 18B/P 122/65B/P MeanPulse Ox 99O2 DeliveryO2 Flow NfomYsT6Edfgzjwycf/PlanDiagnosis/Problem1. Major depressive disorderStatus Chronic2. Suicide attemptStatus Acute3. Bipolar affective disorderStatus Chronic4. Bipolar disorder5. Borderline personality disorderStatus Chronic6. Obesity, morbidStatus ChronicDATE SIGNED: 04/10/21 Vidai jose SignedTIME SIGNED: 731 DORI KENNEDY MD Name Value Range Interpretation Code Description Data Stephanie rce(s) Supporting Document(s) ID Date Data Source [id number] 04/09/2021 04:05:00 PM EDT [address] PSYCHIATRIC ASSESSMENTPATIENT NAME: YARELI HATCH MR#: [id number] PHYSICIAN: BOGDAN MACIAS MDAUTHOR: Surendra SMITH,P. DATE: 04/09/21 RM#: [id number]his is a 93-mshzv-xym white female.Chief Complaint"I am having suicidal thoughts and anxiety."Reason for AdmissionPatient is well known to us. She presented to the ER with the complaint ofincreased suicidal ideations after an argument with her significant other. Shehas a history of suicidal ideations and multiple inpatient treatment. Patientcannot contract for safety. Hence, she was hospitalized.History of Presenting IllnessPatient was seen today along with the instructor wastewater treatment plant, Gloria, and a PAstudent from [facility]. She presented to the ER with Josué due to patient contacting them stating with [...] hasn't beensleeping for 3 weeks.Patient was at [facility] since and transferred to [facility] and discharged. She states that she was in [facility] [place] [facility] and[facility]charged [facility] there and has been trying to be admitted to several hospitalsthere. Stated she cannot contract for safety and thus requested an inpatienttreatment. She reported increased stress due to not feeling safe at her TLSresidence due to another resident, increased family conflict due to beingtransgender and ex being in correction. She also reported that she was notfollowing [...] last hospitalization. [facility] [place]. She is on AOT since 01/09/21.Medical HistoryDenies [...] rce(s) Supporting Document(s) ID Date Data Source [id number] 04/09/2021 07:55:00 AM EDT [facility] Name Value Range Interpretation Code Description Data Stephanie rce(s) Supporting Document(s) LCOVID-19, CORDELL NEGATIVE [facility] This lab was ordered by [facility] and reported by [facility]. ID Date Data Source [id number] 04/09/2021 08:19:00 AM EDT [facility] [facility] Name Value Range Interpretation Code Description Data Stephanie rce(s) Supporting Document(s) COVID-19, CORDELL NEGATIVE NEGATIVE N [facility] Methodology: Isothermal Nucleic Acid Amp [...] Emergency Use Authorization. ID Date Data Source [id number] 04/08/2021 11:32:00 PM EDT [facility] Name Value Range Interpretation Code Description Data Stephanie rce(s) Supporting Document(s) SALICYLATE < 1.7 mg/dL 0.0-20.0 [facility] ID Date Data Source [id number] 04/08/2021 11:32:00 PM EDT [facility] Name Value Range Interpretation Code Description Data Stephanie rce(s) Supporting Document(s) ACETAMINOPHEN < 2.0 ug/mL 0-30 [facility] Data Source [id number] 04/08/2021 11:32:00 PM EDT [facility] Name Value Range Interpretation Code Description Data Stephanie rce(s) Supporting Document(s) ETOH 0.004 g/dL NONE DETECTED [facility] ID Date Data Source [id number] 04/08/2021 11:32:00 PM EDT [facility] Name Value Range Interpretation Code Description Data Stephanie rce(s) Supporting Document(s) GLU 100 mg/dL 70-110 [facility] Patients taking Sulfasalazine may have f alsely depressedGlucose levels. Patients taking Sulfapyridine may havefalsely elevated Glucose levels. Patients should be drawnfor Glucose before the initial administration of eitherdrug. BUN 12 mg/dL 7-23 [facility] CRE 0.644 mg/dL 0.500-1.300 [facility] GFR > 60 mL/min [facility] CHLORIDE 111 mmol/L 99-110 [facility] NA 142 mmol/L 136-147 [facility] POTASSIUM 3.9 mmol/L 3.5-5.1 [facility] TCO2 28 mmol/L 20-33 [facility] ANION GAP 6.9 10.0-20.0 [facility] CA 8.4 mg/dL 8.3-10.7 [facility] ALKALINE PHOS 124 U/L 45-117 [facility] TP 7.4 g/dL 6.0-7.8 [facility] ALB 3.5 g/dL 3.5-5.0 [facility] ESRD Dialysis patient Albumin reference range: 2.9-4.4 g/dL GL 3.9 g/dL 2.3-3.5 [facility] A/G 0.9 1.0-2.5 [facility] T. BILIRUBIN 0.2 mg/dL 0.1-1.1 [facility] [place] Total Bilirubin is n ot recommended forpatients undergoing treatment with eltrombopag (Promacta)due to the potential for falsely elevated results. ALTI 55 U/L 6-54 [facility] Patients taking Sulfasalazine and/or Sul fapyridine may havefalsely depressed ALT levels. Patients should be drawn forALT before the initial administration of either drug. AST 31 U/L 6-38 [facility] Patients taking Sulfasalazine and/or Sul fapyridine may havefalsely depressed AST levels. Patients should be drawn forAST before the initial administration of either drug. ID Date Data Source [id number] 04/08/2021 11:05:00 PM EDT [facility] Name Value Range Interpretation Code Description Data Stephanie rce(s) Supporting Document(s) WBC 8.86 x10E3/uL 4.0-10.5 [facility] RBC 4.27 x10E6/uL 4.20-5.40 [facility] Hemoglobin 12.5 g/dL 12.0-16.0 [facility] Hematocrit 38.3 % 37.0-47.0 [facility] MCV 89.7 fL 81.0-99.0 [facility] MCH 29.3 pg 27.0-31.0 [facility] MCHC 32.6 g/dL 32.7-35.6 [facility] RDW 12.1 % 11.5-14.0 [facility] Platelet count 266 x10E3/uL 150-450 N [facility] ital MPV 9.6 fl 6.9-9.5 [facility] Neutrophils 57.4 % 34-64 N [facility] Lymphocytes 32.3 % 25-45 [facility] Monocytes 7.8 % 1.7-10.6 [facility] Eosinophils 1.7 % 0.4-7.0 [facility] Basophils 0.3 % 0.1-2.0 [facility] Imm. Gran. 0.5 % 0.1-2.0 [facility] Abs. Neutro. 5.09 x10E3/uL 1.2-7.6 [facility] Abs. Lymph. 2.86 x10E3/uL 1.0-3.5 [facility] Abs. [place]. 0.69 x10E3/uL 0.1-1.0 N [facility] l Abs. Eosin. 0.15 x10E3/uL 0.1-0.7 N [facility] al Abs. Baso. 0.03 x10E3/uL 0.0-0.1 N [facility] l Abs. Imm. Gran. 0.04 x10E3/uL 0.0-0.1 [facility] spital ANRBC% 0 % 0 [facility] ID Date Data Source [id number] 04/08/2021 11:56:00 PM EDT [facility] Name Value Range Interpretation Code Description Data Stephanie rce(s) Supporting Document(s) PCP VISTA NEG NEGATIVE [facility] MINIMUM LEVEL OF DETECTION IS 25 ng/ml BENZODIAZEPINES NEG NEGATIVE [facility] MINIMUM LEVEL OF DETECTION IS 200 ng/ml COCAINE VISTA NEG NEGATIVE [facility] MINIMUM LEVEL OF DETECTION IS 300 ng/ml AMPHETAMINES NEG NEGATIVE [facility] MINIMUM LEVEL OF DETECTION IS 1000 ng/ml BARBITURATES NEG NEGATIVE [facility] CUTOFF CONCENTRATION IS 200 ng/ml CANNABINOIDS NEG NEGATIVE [facility] CUTOFF CONCENTRATION IS 50 ng/ml METHADONE VISTA NEG NEGATIVE [facility] MINIMUM LEVEL OF DETECTION IS 300 ng/ml OPIATE VISTA NEG NEGATIVE [facility] MINIMUM DETECTION LEVEL IS 300 ng/ml ID Date Data Source [id number] 04/08/2021 11:30:00 PM EDT [facility] Name Value Range Interpretation Code Description Data Stephanie rce(s) Supporting Document(s) URINE COLOR Yellow [facility] UAPR Turbid [facility] UGLU Negative NEGATIVE [facility] URINE BILIRUBIN Negative NEGATIVE [facility] UKET Negative NEGATIVE [facility] USG 1.021 1.010-1.025 [facility] UBLO Negative NEGATIVE [facility] UpH 8.5 5.0-8.0 [facility] UPRO Trace Negative [facility] UUB 1.0 mg/dL 0.2-1.0 [facility] UNIT Negative Negative [facility] ULEU Trace Negative [facility] ID Date Data Source [id number] 04/08/2021 11:30:00 PM EDT [facility] Name Value Range Interpretation Code Description Data Stephanie rce(s) Supporting Document(s) URINE RBC 0-2 RBCs/HPF NONE SEEN [facility] URINE WBC 3-5 WBCs/HPF NONE SEEN [facility] URINE BACTERIA Few NONE [facility] URINE EPI. Many NONE SEEN [facility] URINE CRYSTAL MANY AMORPHOUS NONE SEEN [facility] pital ID Date Data Source [id number] 04/08/2021 11:30:00 PM [facility] Name Value Range Interpretation Code Description Data Stephanie rce(s) Supporting Document(s) HCG QUAL URINE Negative [facility] ID Date Data Source [id number] 04/09/2021 04:09:00 PM EDT [facility] Physician DocumentationClaxlexy-Naveen Hinkle edical CenterName: Yareli DuvallAge: 20 yrsSex: FemaleDOB: 2000MRN: [id number] Date: 04/08/2021Time: 22:26Account#: [id number] Cvtw4Wkghfsz MD: NONE, - Per PatientED Physician Santiago RajanDiszach Summary:04/09/21 12:49Hospitalization OrderedHospitalization Status: Inpatient Imjbksqpvxe1Ordwtqiw: Anjel Oneillmrf2Location: Mental Health Wshdqb6Wbwmkhusw: Ayznteur2Mktoigj: an acute xxdqogoxkqqgga5Jbpgxzbx: are letogsaijft0Uvrh Assignment:bq7Tbuzbwjox- Major depressive disorder, recurrent, lmafiexfepbar6Qlfegmzcda Information- Admission Type: Inpatient Status.ns7Udqsh:- Medication Reconciliationrf2- SBARrf2- Medication Reconciliation Form - 2nd Copyrf2- Psych. AAXEsk3SOW:03/2906:59 This 20 yrs old White Female presents to ER via Police with complaints ofPsych Problem.br07:19 20-year-old female with extensive psychiatric history of bipolar ADHDanxiety brdepression presents complaints of increasing suicidal ideation after argumentwithsignificant other. Patient states that she has plan to harm herself by hanging.In EDpatient seemed to be comfortable and cooperative.BROWNFIELD PROGRAM COORDINATOR:03/2822:31 LMP 02/20217233uw7Ubrylmmlww:- Allergies: Haldol; Risperdal;- Home Meds:1. prazosin 2 mg Oral capsule 1 cap every day at bedtime2. Zyprexa 5 mg Oral tablet 1 tab nightly3. montelukast 10 mg oral tablet 1 tab daily4. topiramate 75mg oral tablet daily5. aripiprazole 10 mg oral tablet 1 tab daily6. aripiprazole 400 mg intramuscular suspension,extended release syringe 400 iidxedf34 days7. sertraline 50 mg oral tablet 1 [...] Temp 97.3; Pulse Ox 98% on R/A; Fmpyxf438.33 kg (R); pt6Xdvdti 5 ft. 6 in. ; Pain 0/10;03/2908:38 BP 123 / 77; Pulse 66; Resp 18; Temp 97(TE); Pulse Ox 98% on R/A;sw215:20 BP 126 / 70 (auto/); Pulse 70 MON; Pul se Ox 97% ;ef109/2:31 Body Mass Index 37.12 (104.33 kg, 167.64 cm):31 Pain Scale: Vkqjjcm2XYP:03/2822:45 Patient medically screened.br6:53 Transition of care: Care assumed from Zeeshan Grover MD.rf206:54 Data reviewed: vital signs, nurses notes, lab test result(s), CBC, druglevel(s), ed2mdnwpppthfoyr, alcohol, salicylate, electrolytes, hepatic panel, urinalysis,urine drugscreen. ED course: Patient is medically cleared and pending PSA evaluation.03/2822:38 Order name: Acetaminophen Level; Complete Time: ::38 Order name: CBC with diff; Complete Time: 06:2821:38 Order name: CMP; Complete Time: 06::38 Order name: COVID-19 PROFILE+LAB; Complete Time: 08::38 Order name: ETOH; Complete Time: 06::38 Order name: Glucose; Complete Time: ::53 Interpretation: [...] Weight and Height for BMI; Complete Time: ::38 Order name: Mental Health Evaluation; Complete Time: 06:41pk908:38 Order name: Mental Health Level 3; Complete Time: 00::38 Order name: VS q shift; Complete Time: 00::54 Order name: Medically Cleared for Eval by-Psychosocial, Motivational Speaker (YE);Complete Time: rf213:27Dispensed Medications:08:37 Drug: sertraline 50 mg [sertraline 50 mg tablet (1 tabs)] Route: PO;: Follow up: Response: No adverse ldpzpqkfim162:37 Drug: Topiramate 75 mg [topiramate 25 mg tablet (3 tabs)] Route: PO;21:21 Follow up: Response: No adverse ktoytjkxoo993:38 Drug: ARIPiprazole 10 mg [aripiprazole 10 mg tablet (1 tabs)] Route: PO;: Follow up: Response: No adverse :38 Drug: Loratadine 10 mg [loratadine 10 mg tablet (1 tabs)] Route: PO;: Follow up: Response: No adverse oukxcmbqpa949:38 Drug: Montelukast 10 mg Route: PO;:21 Follow up: Response: No adverse iyonpjhzjt214:38 Drug: Propranolol 10 mg [propranolol 10 mg tablet (1 tabs)] Route: PO;21:21 Follow up: Response: No adverse roman papectk4Qubxitllev:Dispatcher [employer] Fortunato Burrell RN RN kk2DyrewkoZeeshan armstrong MD MD brKelly, Krista, RN RN yp1JkfvOlivia RN RN bc0PcabtSantiago betts MD MD gn7XvijfsifAmi arthur RN ae2Ptekszanoqb: (The following items were deleted from the chart)01:16 04/08 22:33 Home Meds: Lexapro 10 mg Oral tablet 1 tab nightly; kk3kk3 Name Value Range Interpretation Code Description Data Stephanie rce(s) Supporting Document(s) ID Date Data Source [id number] 04/09/2021 04:09:00 PM EDT [facility] terName: Yareli Domingo: 20 yrsSex: FemaleDOB: 2000MRN: [id number] Date: 04/08/2021Time: 22:26Account#: [id number] Jitendra MD: NONE, - Per PatientDiagnosis: Major depressive disorder, recurrent, unspecifiedPresentation:03/2822:28 Presenting complaint: Patient states: "I am having suicidal thoughts andanxiety.". id6Qrveomrftdp Screening: Have you been diagnosed with COVID-19 in the past 30days? noAre you currently on quarantine by Public Health? no Flu-like symptoms reportedin thelast 14 days: no. Have you had close contact with confirmed or suspectedCOVID-19 case?no Do you live in a setting where a large of amount of people live, such [facility], family care, nursing home, etc? no. Have you traveled to a location withwidespread orongoing COVID-19 community spread or outside of [facility]? no Have you traveledinternationally or had contact with someone that has traveled and has been illin thepast 3 weeks? no Have you received the COVID vaccine? Yes. Communication SpeaksEnglish? Yes, is preferred language. Language Line Services needed? No Are TDDneeded?No. Best learning method: discussion. Learning barriers: none identified.22:28 Acuity: Triage 8hi922:28 Method Of Arrival: Jgjualrf747:29 Presenting complaint: Badge #[id number] from [facility] patient madesuicidal pr5ufcdilkpuo and called police to be brought in.22:30 Acuity Assignment: Triage 3pp256:50 International Travel Fever No. Communicable Disease Screen: Negative forfever>/= 100 oi5hkyjznu Fahrenheit. Communicable disease screen is negative. (-) rash orunusual skinlesion (-) travel/contact with traveler (-) respiratory symptoms.Triage Assessment:22:34 General: Appears in no apparent distress, well nourished, well groomed,Behavior is za9hlozios, appropriate for age, cooperative, Denies fever, chills. 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 prazosin 2 [...] threats or abuse. Denies injuries from another.Nutritional rx3osbpaytes: No deficits noted. Offer of HIV testing: patient was previouslyofferedscreening. Fall Risk None identified.Assessment:03/2822:37 Reassessment: see triage assessment by this documentation writer.kk323:59 Reassessment: Patient appears in no apparent distress at this time.jw509/2900:52 Reassessment: Patient appears in no apparent distress at this time.kk302:19 Reassessment: No changes from previously documented assessment.jw503:49 Reassessment: No changes from previously documented assessment.jw505:06 Reassessment: No changes from previously documented assessment.jw506:34 Reassessment: No changes from previously documented assessment.jw508:29 Reassessment: Patient appears in no apparent distress at this time. Nochanges from bn2ywogbrtljx documented assessment. Sitter at bedside. .09:59 Reassessment: Patient appears in no apparent distress at this time. Nochanges from mx2xucnnczetv documented assessment. Patient sleeping in bed. Sitter at bedside. .10:57 Reassessment: Patient appears in no apparent distress at this time. Nochanges from gh7iefcmtfane documented assessment. Patient sleeping. Sitter at bedside. .Psychosocial:04:52 Narrative PSA spoke to Dulce at [facility] ([phone]) who states that thepatient was qu5mrvp all day. She states that she was [...] Completed. Interventi on: Observation Level 3.Referral Information: fj8Ckyqnrrdcb referral is generated by a police agency: [employer]. The patient wasreferred forevaluation because patient had voiced suicidal ideations.05:09 Subjective: The patients chief complaint is Pt presents to the ED by [employer].Patient ud2rgwvfvf feeling suicidal for "a while" now and [...] history of anxiety, Bipolar Disorder, Depression, self-mutilation, pl7Lxfzp: [employer]. Mental Health Admissions: several. [facility] Services[facility] [place]. Living Environment: Family / Home Support: poorThepatient currently lives in a [facility] residence. The patient is single. Detox /RehabAdmissions: None. Current Outpt Alcohol or Substance Abuse Services: None.05:16 Patient presents to Emergency Department with the following symptomswithin the past 2 tu9pyjqd: suicidal ideation with plan for jump in [...] patient status is not currently needed orappropriate. xm3Titlqxgarfld: Psych MD informed of patient's status at 06:00, ED MD notified ofpatients status at 06:34. Disposition: Medically cleared for disposition by [facility].Psychiatric Consult is performed by phone with Dr David STEVENS. DSM-V DX [place] Idiagnosis:Depression, Unspecified. Insurance Pre-Certification: Not Required. IMHUAdmissionCriteria: [...] dosageadjustments. Awaiting. The patient is not a sales and service advisor or militarydependent.[place] Suicide Severity Rating Scale: Suicidal Ideation Rating 5; IntensityofIdeations Rating 25; Suicidal Behavior Rating 0.Psych:00:00 Subjective: Patient's mood is elevated, Delusions are denied,Hallucinations are denied rf2Ohxpfk thoughts of suicide. Denies suicidal plan. Objective: [...] Temp 97.3; Pulse Ox 98% on R/A; Imtinm068.33 kg (R); fw3Vuonvz 5 ft. 6 in. ; Pain 0/10;03/2908:38 BP 123 / 77; Pulse 66; Resp 18; Temp 97(TE); Pulse Ox 98% on R/A;sw5:20 BP 126 / 70 (auto/); Pulse 70 MON; Pulse Ox 97% ;ef109/2822:31 Body Mass Index 37.12 (104.33 kg, 167.64 cm)kk309/2822:31 Pain Scale: Lluotdu7HG Course:03/2822:27 Patient arrived in ED.kk322:27 NONE, - Per Patient is Private Physician.kk322:30 Triage completed.kk322:39 Ratna Barbosa, RN is Primary Nurse.kk322:45 Zeeshan Grover MD is Attending Physician.br23:59 Primary Nurse role handed off by Ratna Barbosa RNjw523:59 Fortunato Mark, RN is Primary Nurse.jw509/2900:00 Patient has correct [...] Nurse role handed off by Fortunato Mark RNUMsb7Sawimkpaukxh Medications:08:37 Drug: sertraline 50 mg [sertraline 50 mg tablet (1 tabs)] Route: PO;sw215:21 Follow up: Response: No adverse pegnkkpdfm443:37 Drug: Topiramate 75 mg [topiramate 25 mg tablet (3 tabs)] Route: PO;sw215:21 Follow up: Response: No adverse pinanziqzt328:38 Drug: ARIPiprazole 10 mg [aripiprazole 10 mg tablet (1 tabs)] Route: PO;sw215:22 Follow up: Response: No adverse onnphfqlpw608:38 Drug: Loratadine 10 mg [loratadine 10 mg tablet (1 tabs)] Route: PO;215:21 Follow up: Response: No adverse xemfmstbsf803:38 Drug: Montelukast 10 mg Route: PO;215:21 Follow up: Response: No adverse maowpempcl928:38 Drug: Propranolol 10 mg [propranolol 10 mg tablet (1 tabs)] Route: PO;215:21 Follow up: Response: No adverse mhsibzvksf4Sujqwlh:12:49 Decision to Hospitalize by Provider.rf215:22 Disposition: Admitted to Psych accompanied by nurse, with chart.ef115:22 Condition: stable, Provider notified of abnormal vital signs.15:22 Discharge instructions given to patient, Instructed on need for admit,Demonstratedunderstanding of instructions.15:22 Discharge Assessment: Patient verbalized understanding of dispositioninstructions.Patient able16:09 Patient left the ED.pq2Dwsgoycfkb:Fortunato Mark, RN RN xo5LsiukwrgAmi dang, RN RN ee4JybfucthhAgatha romeo RN RN di2MbjixbqZeeshan Grover MD MD brKelly, Krista, RN RN ri2UlpkmoeqUsha apple8Olivia Barros RN RN he1LavqeSantiago betts MD MD um4Rkkhuljijku: (The following items were deleted from the chart)01:16 04/08 22:33 Home Meds: Lexapro 10 mg Oral tablet 1 tab nightly; eu2xm772/2905:17 05:14 Patient reports history of anxiety, Bipolar Disorder, Depression,self sm8-mutilation, Other: BPD. Mental Health Admissions: several. pt was last at [facility]03 Current Outpatient Mental Health Services: Psychiatrist /Agency:[facility]. Living Environment: Family / Home Support: poor [facility]. The [facility] is single. Detox / Rehab Admissions: None. CurrentOutptAlcohol or Substance Abuse S ervices: None. sm8 Name Value Range Interpretation Code Description Data Stephanie rce(s) Supporting Document(s) ID Date Data Source [id number] 04/08/2021 08:32:18 AM EDT [facility] Name Value Range Interpretation Code Description Data Stephanie rce(s) Supporting Document(s) ED Provider Note [facility] MMYUVb3wEdDHMtLr22/VKCcuPIVoq6BmCAbcVDe4LBwtLTZoV5OuMRK8oI6uFQU2IZaSOdWqAzEvIYX9 lbm [file] == ID Date Data Source [id number] 04/08/2021 08:24:44 AM EDT [facility] Name Value Range Interpretation Code Description Data Stephanie rce(s) Supporting Document(s) Discharge Summary [facility] TUWSHv5tQdTBUeGu03/KXMibXSXqz3WdCGdzOCx0CTxuCQLgZ3QsDZQ5yL4dOVE6IWrKMfAyZdQeGAI2 lbm [file] AgICAgICAgICAgICAgICAgICAgICAgICAgICAgICAgICAgICAgICAgICAgICAgICAgICAgICAgICAgIC AgICAgICAgICAgICAgICAgICAgICAgICAgICAgDQogICAgICAgICAgICAgICAgICAgICAgICAgICAgIC AgICAgICAgICAgICAgICAgICAgICAgICAgICAgICAg ICAgICAgICAgICAgICAgICAgICAgICAgICAgICAgICAgICAgICAgDQogICAgICAgICAgICAgICAgICAg ICAgICAgICAgICAgICAgICAgICAgICAgICAgICAgICAgICAgICAgICAgICAgICAgICAgICAgICAgICAg ICAgICAgICAgICAgICAgICAgICAgDQogICAgICAgIC AgICAgICAgICAgICAgICAgICAgICAgICAgICAgICAgICAgICAgICAgICAgICAgICAgICAgICAgICAgIC AgICAgICAgICAgICAgICAgICAgICAgICAgICAgICAgDQogICAgICAgICAgICAgICAgICAgICAgICAgIC AgICAgICAgICAgICAgICAgICAgICAgICAgICAgICAg ICAgICAgICAgICAgICAgICAgICAgICAgICAgICAgICAgICAgICAgICAgDQogICAgICAgICAgICAgICAg ICAgICAgICAgICAgICAgICAgICAgICAgICAgICAgICAgICAgICAgICAgICAgICAgICAgICAgICAgICAg ICAgICAgICAgICAgICAgICAgICAgICAgDQogICAgIC AgICAgICAgICAgICAgICAgICAgICAgICAgICAgICAgICAgICAgICAgICAgICAgICAgICAgICAgICAgIC AgICAgICAgICAgICAgICAgICAgICAgICAgICAgICAgICAgDQogICAgICAgICAgICAgICAgICAgICAgIC AgICAgICAgICAgICAgICAgICAgICAgICAgICAgICAg ICAgICAgICAgICAgICAgICAgICAgICAgICAgICAgICAgICAgICAgICAgICAgDQogICAgICAgICAgICAg ICAgICAgICAgICAgICAgICAgICAgICAgICAgICAgICAgICAgICAgICAgICAgICAgICAgICAgICAgICAg ICAgICAgICAgICAgICAgICAgICAgICAgICAgDQogIC AgICAgICAgICAgICAgICAgICAgICAgICAgICAgICAgICAgICAgICAgICAgICAgICAgICAgICAgICAgIC JiXFPkXLOfTQHzOREoROJbDEXjDCBtBQTmZZPiCZPjIMZvLGStQOd9G6aaFZTdTZNiHV7mHVo1Vp4+DQ iXXgIgDRC7uxGbuC3NKB1oy3YyVKhlWPPte2MmILq7 AY6FISGlLIvyMJ7NPCytqg9BFCTeSTHlrROUb7swPnIkRRJ9TPLsCtleFI7NMLHvV1ooqiNoIAFtCPKK MWhjODGNBOmsZGJWEBUpZMQsAlFwYeAxVEOlJQPpZRNFYNL0ROPcLpVsCYIgZYFrJkZePPSIKAPyGUGn BiBxGOOiCQVwIkhmBNFQUGF1EKDeQkBcFKZqJLBiLD 3YKYLcH466qjRvCCBTYa1+URkrmhPbBxdNYwXmHPZcw6WnHJs2LZ1MPOPgYuuzp1MtXnMiKZUDBQviWZ 7AVLY0DLDtDZYuIb0ABRYaF931ywNkAQ9FCn2CMtMjYJ2uqp1DWaNxHDSlBkpDErp8JNpeCO2VrNSwLH xEqHFyzSWqU7FaH6XmpDQyuUDwaQJRXJ6qbfZQIK9x J61uYPJDUAJleZO3NuD9BeQgHlHeTCY4RyOrIF4qQDuyEG2RZUD7NQfxBYSpEKOvR1uXApSdNYUoGMPo sXmyNE6BDaDkZ8FphxAixHG9PiNxIFHQIu8+SMgfnnCtDguXQfH8PGFnc7IfWMk4VH2QUNZwOWvsMO6I FFHteV9sKObwMB9PEiU8FEGdNZWRGjKmN14rcSFgAI n8D1YtFvScMRUrGxmtJGCzWNpyEvLvJZDgXhJiZPflUX8+ID4+PDjmRU6WMUolytUdABHiLy1KZZQyYM HcWQ5sPHIaLXDfE3F8uEyiJWOJYmKeH9oxenioKG2bSBIgV382aYytqrBvBNHmRVXoYr5UAGKlYAM0DP DikVIiIyCpYYSLTVdbAX4AuRDnGHH5mP9vWEcfCURb OBPzX4jEVsOxwTmbCI85gCyvimChnOXgPFt+Hq4XKE5dp3HqVXr5ngXiUXtbFRL5IUgfXRXrDVWbJPRx DTM3GGN5MWXHRdNeXDMiVRCxFVqyMERkZEOvfl5IANFqDKN8PQxdWHFqMIXfGIFpNNrkZOEyUCrxOsPk NMRgMOVqSG1QFmZyTIRoBJHjBTiaOFXoEKYdig4CLU OlAYKwPLLcAuHgHZSmAXGqIOyzPDLsCQN5EPZyAYSlGQWmUR9PPzHbAIFwIQw8NZQdCIEhPRHovd7ZDC DnPAXzCtdbXYXiJMIeXRNzLMluYRLiFYMbYIM6ADKiHUXiTV9EDmYlSYUyJERpDLOoVQNyTGBsam3QNT RoRYOmDgP7RzHhDPFkIJQwNDdvPMOjXIQyMKs1GROn SELdPX9BZiFlKWAlPAX1EpHfWBSdGYKrog0HVHEyDWEyOxUnJgLeOVVmLVYtTMpdWCTzNYA9HhU2WHTy JLQyBC6TKkWsMYKwKWr9AqZvFXJsTCIypy2YZWOlCUJdOGN3THLkYDNwDHVnKVmaPBOgTUKjJTN8NVSj KSKtQP2QQcOoXHLsCfIbFBJvODGpJDScez8AFGZyQS VlMFV0RlPtCRIcKRWdFRltNFWoQVT1SdO5YMZzHNSdMO4HZyFkSVCrGpx3SBGnTBFyDSDngp6PSVLdXJ EfNuKpFnZqNLQzYVQyFDhyYAHrVAPtPgA4WBFbIKPcFE5UYyKwZSDlMbC9XrDzXDOsVREzik2QHSFvCF TgTaV4HvYgMYUzNUOgJMkqFXRdLYIcEkQiBDEwNTDn DN7LSvYmWQGcSPA0VswvSLFvKDXkts9PLRMdGGR6UuF5GcGtGAIoFXPxIQpwHBBlPHUnGfQ0IMUjGOLq QK3SDhTfCFXsURV7GBqcZRLtIGNgcq5PCFFmGGS6OZI6OWIoXYNwHZAvCYyhXEHyQNK5WlS2MXKiVJMh VF8PWaXvTFRbUUP6NJOiFYGeQQQccf5UJLFjFHB3OO t4DDZzZEThPAJtRZkoVTWbWES2CGOvFAEpYPHzAT3HJlHvFQCeCOtuMUIiRAHbFBRmus2YGUOfNST1Gq Z5JzFcHYOiBSKhAMevIYMtOWZ1AnCfCXUrIQAvUW5DOeNtVHVdCHy5QEVwDADdKIOylh0NIAOyGRM3JD D5XoMyDRPyQOWhIEdlAXEyVEB7SiVyQYHtMPZrKB4S WuYxATVnWPy0FHbdGYClBTYqgo0UXFKjRRR7INVjEtJyKAWqMJWfMMfpLKIrRYKoHEesWUMsUSEdKE0F UiWlVHVtQNOiNPBzCWKvPRIquv7NPCLoJNA0MAD2TpPrDQZoRSEmLFvdAVDlLWFrYeC4GSLhUVPiYL6T JkPrAJTnPAK1YDRuCAZnNMRehn7OGUFtEVJ1Ktm9QY GiFIQbMVQkUWqkAKMuXAB3SLl0XNJoGCTtJD1PCeBoHWLgLuK7JYJoUALeHQPuyz2YXPZlODJ0VWopGB TrCQGvUUJxNAllAVYrQJQ1XOviXPQvSZQlOP7GVdZxJXSvSnDgQLVfNUBzSBTtrw3AEYDuZSX8MKu1Ut ToANIjAFYbIGznODHtFCvbRbvnCCDqLLHjXF6IMeIn LMGaOqO8QBMyJMQvXEDooe9NXMMtXTJ0BRf2WnQzIOJsOLVzYLgqVSKoGBndJNe5DTKhPAPcWI2OViYa MSDiCkTrDeYvOAYxMEMgmr6ZXMGvDDL1Vmk2FURuYHDzIWBeTIjuXJVaMYbwTMG7XJGqWBXqOK6DJdBr TLNpHcFoDvRtNFUaASNkoa6YjRNhlTwcji3GASyUNx 6LhDbyCOA7WKeeRf6viBW3BCNmIOWMQg1ObdGlGQYfYCAJLBjtLOLsSYJqSuH2McSdCHHkPgCoZbt6QF K8INO2BPhhLEj3VEjmYiI6LDZfOwwmAfK5OIMnNCRtPhszYMCzKHe1XBHgJpYdWoS+YZ0vPNm+Pg0Kc3 MzafH4rtCoDZg3BiQ4EM0IFJUSK9HYWz== ID Date Data Source [id number] 04/08/2021 08:11:12 AM EDT [facility] Name Value Range Interpretation Code Description Data Stephanie rce(s) Supporting Document(s) Consultation [facility] EPNJZb3cMjWDEaCs77/ZZIntOOThw1VrILrsKWf6QJtyUPFzR3EfEKB3tX6vMHU5MYaRWmHjKbGoDWO2 lbm [file] scKVwnsZ3/DjRKpa1qYWbtJBneNaaQLLPIHQqL48EgGyFfDsdjBo82YiK0uqWyYeCLhpnR6xnALb/MAINTENANCE SHOP TECHNICIAN [file] ICAgICAgICAgICAgICAgICAgICAgICAgICAgICAgICAgICAgICAgICAgICAgICAgICAgICAgICAgICAg ICAgICAgICAgICAgICAgICAgDQogICAgICAgICAgIC AgICAgICAgICAgICAgICAgICAgICAgICAgICAgICAgICAgICAgICAgICAgICAgICAgICAgICAgICAgIC AgICAgICAgICAgICAgICAgICAgICAgICAgICAgDQogICAgICAgICAgICAgICAgICAgICAgICAgICAgIC AgICAgICAgICAgICAgICAgICAgICAgICAgICAgICAg ICAgICAgICAgICAgICAgICAgICAgICAgICAgICAgICAgICAgICAgDQogICAgICAgICAgICAgICAgICAg ICAgICAgICAgICAgICAgICAgICAgICAgICAgICAgICAgICAgICAgICAgICAgICAgICAgICAgICAgICAg ICAgICAgICAgICAgICAgICAgICAgDQogICAgICAgIC AgICAgICAgICAgICAgICAgICAgICAgICAgICAgICAgICAgICAgICAgICAgICAgICAgICAgICAgICAgIC AgICAgICAgICAgICAgICAgICAgICAgICAgICAgICAgDQogICAgICAgICAgICAgICAgICAgICAgICAgIC AgICAgICAgICAgICAgICAgICAgICAgICAgICAgICAg ICAgICAgICAgICAgICAgICAgICAgICAgICAgICAgICAgICAgICAgICAgDQogICAgICAgICAgICAgICAg ICAgICAgICAgICAgICAgICAgICAgICAgICAgICAgICAgICAgICAgICAgICAgICAgICAgICAgICAgICAg ICAgICAgICAgICAgICAgICAgICAgICAgDQogICAgIC AgICAgICAgICAgICAgICAgICAgICAgICAgICAgICAgICAgICAgICAgICAgICAgICAgICAgICAgICAgIC AgICAgICAgICAgICAgICAgICAgICAgICAgICAgICAgICAgDQogICAgICAgICAgICAgICAgICAgICAgIC AgICAgICAgICAgICAgICAgICAgICAgICAgICAgICAg ICAgICAgICAgICAgICAgICAgICAgICAgICAgICAgICAgICAgICAgICAgICAgDQogICAgICAgICAgICAg ICAgICAgICAgICAgICAgICAgICAgICAgICAgICAgICAgICAgICAgICAgICAgICAgICAgICAgICAgICAg QZVyCYJmDMEiYVTjTPMwICQmJARvBQAfQVEoNZq0V8 rqGKNeOBZeZX8iHYr5Wl6+TSuODiUbDHW1dsGpuC0YYM8tp8HvVClxZBAml3AuFMd4AZ0YYJGwQYxkEL 5AJZlsxx9JFBHzNBQuiEJIw3qxQmWkRBU6MEMmKqfeCT2SCSDmH5nndpRjVRSmNOGHVOblEBGBOZmkLP IPAQNxUTLwZvYyVcYqMNDbUUYaFDYYTKP4RVTaReJa RWBoBROvIoQbPZIPSQEmZLPcFeDlIRGxFDNlFbccJPHMCA6EHnExT6ImcB30VNWpTWj+Sh6RGQ4jd0Ie IHn7KnYxTA8gdp3VBJuOSjOxZ2MlbsB9SDL8BVUvAa5WCSXcUWXvaNO1WWBeLLHKMaZiN2YqlE28CTIR Cj4+ZVpllxJiNhmNEtQ1ZUUbw0StDHs4FC4MLSIgAQ c3iTTnK34ib8UqsHBxQxvlN2svnUA9q0SxCMKdInNJNK4sZL4iWOYXZxLgcTU1KrM6LiXrCcVhLNR6TP qxVJ9tUHfiYY4ILRI4GJmlJJAvSWUlZ3uAPcNmPCGsYSZigNqpNC0AFnTzV6HzwcJvaWD1ZwMnZAGWGx 4+KGamtuHeQylHHcL8UHUhf7GbFRq5WP4ZFOIrVUmc CN6FHITeaM7wDAooFD8QMvI3QSCzQNCZLvHbF08jcRZfOKi8U9YySbQgTVLrElzpBEOrFIdpVcGlSBTc WyBdDQogID4+ID4+QXmmMU5FZVadbgEcUEQpVb8LRORyXDSjNL7aVTDuJGBbQ9B1yHmiXDFTMkUgH4jc mejmFQ8hOWTwG014bMpqjsSuLLVyMVUoWs2BLHWuLT G6WMGqwOCxCqZlXVOZPDunGT1YnCCdWCQ4zV2zKJgsYQPfFDCnG7oCSgDpzFslDD45sUtvedXbpQQmLM o+As3ILI2jl0JhPMu6xxJzGXraUPB9OQpyCBYuWVEwDDQwSAA5HRB8KBPFEwRpTRZgUZYoGWjjQAOvBI Dawn4ONPOzBDO1VQKrWVGvPEHmXKVvRGybQOUkAIz1 OTV8IVGrVQHtSR6FYxXmVLIbDCIvPSpsUZMeNSYxsw9HNKGqXVNeFpzlSuGkIZOeWREhXZmbQCWvNSI4 EQM1YEIgMMHnXF9FLlTiMFMqLOz2DFCqBDPzUAVldj5BSBRxUZWhLujdFJWoOXLbYFWzEVypSNVpEJKi DLm1MXPtDRRxZX0QYhWaCKQqBBLhCCUfTMYsGPFvjk 5XNOZnDNYyCVT0OSKqFJLhRSLvKLmdOLAxQZG4ScA3RMKgQCRjAK0PXvMbSNWxEVKtQBVdYFXcDUIakw 1VJTZbSKIxIySsCuCcGVPmQSCnQZnlBVXrFHD9LxM5JSFxTVUkHM9DMzQvLPYxQFh3VuGeBJUoETKvqd 0HVPFgBKOaRLh3NxVlDGNeEVEgADujDNCvLMQoYFw8 UBPnKGIsQY5OArCgRLKgZkM8JaAjWZIrYVJqmg7ODVJaKQGhJVC5CzByRGZsBUYuGInvVWSnAYJ5HxC2 IDAhHVXaLU3JOsLwZQRsVtx0CqNyBVYvYODcvg9ALOUuBJIeZZviFFGvHULnKTDcWLqjDELpBCFjADP9 UQXcBVPzAF4WPhNwOPCwMlIzDphmKGXjKAZjyu2UAP AwQEMoNnEpVOIrPXUvFYDyITvrGYMaDVB7Qgq9FHUyFYGwCU7TLyGkBSBwCnv5ULFjZTDdRAXxru1EIC BoLZEfJZq5ZcRfYSHdKMBsTYauBHSoNCF9ZAMlUUNkYWGzZQ2PLyLlZSXzRqmcWhLmUJOyFRVpyu2AKL RgMYU3XPP1UeSdNDStRFGgRDdgRXBrLFSkRKx7OWEl KRCwIU9VYdVpHTYdAGI6ARXbIXZnWJQnyy0ULKHuTYI6SVM6MxPpWKUaNRKtELjlXRVeSLWvYXX4ORKz SVOeBE5FYySuCJFeAOLxHpDcXSDyQFAspu8GVVBuQHO7Dlq3KIQyLTUaAHEvVUjuXXLdNOWbXTtkXEJe KDBwNK3WOnCzSXMdZLWtNSHsDFSrUIRatr3LUOUsUI R3TQJ8MGWkADMaYWJcCGocDXVoWIE9GPA4UOShDQXdXQ5INgDtDTKbRGW9NpnySODlWQUlco4EPCVrNY M6IFHbMVWfXEWjUTQaORrwXGTmKZD8BNV5GIFvMOHvPH8RZjHkUMIvYsc9RJOtQHLmFDKmjm8GAGThKM T6FOJyEWVgCVWgZOJoKCgxAHCdRRabSUihUPIkCUSg RO1JVuByPTByIqZwTbYuMFBuKEDwxs4LJJIyVTD2CFG6SOOyZJDgGPOwZWvmZSDrFVl6TOe9FWPpHDVh SJ0AVlKuEKCdAnIjIdYkQHVuVKLgya3XKOPcXHV0KpH5YeIsDQYtZBCmYEvwFXMrLRr9JJc6MTLuERYi FB2WUuAmFXVkFgA7EfBuTHEtSSMmin3ZMJZiARM2Ij g9NJYkWAJxPQLtSMqhKSQxTGq3KKD2XWTpFCTsTC0QTkSmFKXrSOL7ZoHnVJWhWBAauj3SPSAwSCM6LC s9KsOoDFPeAZClNKqfNWHuPUe7CNY6OMSsYXCrAU8YZrFpKSLzQVC9FOazQCVlRNXjtv6CZOWaUYG1Ux ErGGTcBIIwCJFcCBqbHWQqYPb6IkW2COWmNYDlTR3C RfWmNQPoDPz7ACcySPVoQSKdfr6ZRVTnJOA2Zzh6OTCaNELxJRMbQIm4adNdrDWgSGb1PM7BQ5FpimWh HhFNPl8Mn188EWF4PPAlNz9KJ5xrIa1gIIZrJQDULp7CICe6QTWjYBO5TNM2ZLFpIgIeXohySSV3XSp7 MTVlODRmZjE+RAh7VVF6XBGmJwm1YjZbKfZpFNFzMH q2KTRlOVP0NDNeSI1nYFVAAm7+YMbdbWJvkQagHRHXDak2KZpbWLmoCIARNp4U ID Date Data Source [id number] 04/07/2021 10:13:17 AM EDT [facility] Name Value Range Interpretation Code Description Data Stephanie rce(s) Supporting Document(s) Consultation [facility] YQREEu3fLnFJQlUq05/WPLhqNTHsz8ZsQGwfJUc8INkuHTVzU7YkJTS1bV2vVHV7PFxFNnPaEqNnDNM7 lbm [file] CEX9YsK9DDQ2LAz2T6GfKZErVGWpOhOyPG7ECa0ARmR5WTZ0gYMcVw2CHmS2MZcUXpHmGU1HYGe= ID Date Data Source [id number] 04/07/2021 08:19:33 AM EDT [facility] Name Value Range Interpretation Code Description Data Stephanie rce(s) Supporting Document(s) History and Physical [facility] XCOGOl7rYeOVVrLn87/PWRpnGGFjh7XhGQbvCYj0DYjrHSPgY8KmRSX9iW7sBSD4ZFjCFrVzNnHyQNY3 lbm LhZirFRdVsQKNqQxvWShObWTteBgvmgSDpLE9NcPX9HBDcU93dEFWvZSRnI7XiQTD8JPo+Rg2AGLPvrM EvGJ9CEroR0U0zt1jKNr8+wP2HRQ/otUFic/m2pL+hwcM3fFPKHuBMzCwHrm49xtMsuqyyl7mcuwD9VY VT+dRFFxgxlZ0Zz1MzbKvitD+QMYc982b2OzII01Ak 3+umMF53QiU//RyiToq27CBJH9DPbrZ5Ye8RZ5M/A/8oL61vmR5IzgytgiULGeyyswqMg1InOvYUYrj/ qsEvSodhNpKBdwWodQH+YzY7Iqy9kCBTHTsuFaKKAWXEHrMDqGiueR7QSzmF66HnN6tVOR5hAOLxYR/7 lU703FFXWTkwkEp4f0f3JDJGwqCupGQBSUGZfcLFE/ 2Yw92B+nlj/yKphVwZHW2wdnJs0jPNA7pTNrMnuSyMfJuTsahj3+uvcGu/KeadNDB+hY5nhqyZbam5xs equ1k13C1EyTn+GVpzIgMFmywAOXn8kA2C8AGLx/1c4YmVMmFqTIhlL3JIfKt4bF9aaObul+BZxj8EOZ ZDMvFaruKb1pz3rAldHsvstUfFmLxW8HjK41PuuxI4 n15zLLObM7ZZRd8NE4gEMgkUxObZeH/+E26kCHqpucI/Hk+HV0L6+BSmaduMOzWdaYwyIfhI3bbv8UZO Oc0SL79j3IzUi4zvFHWckB55GpBw1LyU74p0SxM2SK47BqG1al7b/fKjgsYB81pvEToqlkuraqD/c/L+ Q/es131/aepixA9zjKJ3emcauAjLKcVpC7kDko6fUq xxnHE0n+z/fat2r3fYvAcGmMeuwR9EXbmqy7DiPsl4EaGWtel7+PyVwRxDsbvgDilmhk92xBJVID2Msn V1TiW4cuPveZqnzGJ3L15PUCRdrQOHEDAqAS1Y5ecKPZZR7+K2gDRnFUOKHde+OFhE60jkpl2hqalbIP UcW2bflg6l8a1KnltdqbBbzcA9tuksJuJVdrMaioh0 [file] ICAgICAgICAgICAgICAgICAgICAgICAgICAgICAgICAgICAgICAgICAgICAgICAgICAgICAgICAgICAg ICAgICAgICAgICAgICAgICAgICAgICAgICAgICAgICAgICAgICANCiAgICAgICAgICAgICAgICAgICAg ICAgICAgICAgICAgICAgICAgICAgICAgICAgICAgIC AgICAgICAgICAgICAgICAgICAgICAgICAgICAgICAgICAgICAgICAgICAgICAgICANCiAgICAgICAgIC AgICAgICAgICAgICAgICAgICAgICAgICAgICAgICAgICAgICAgICAgICAgICAgICAgICAgICAgICAgIC AgICAgICAgICAgICAgICAgICAgICAgICAgICAgICAN CiAgICAgICAgICAgICAgICAgICAgICAgICAgICAgICAgICAgICAgICAgICAgICAgICAgICAgICAgICAg ICAgICAgICAgICAgICAgICAgICAgICAgICAgICAgICAgICAgICAgICANCiAgICAgICAgICAgICAgICAg ICAgICAgICAgICAgICAgICAgICAgICAgICAgICAgIC AgICAgICAgICAgICAgICAgICAgICAgICAgICAgICAgICAgICAgICAgICAgICAgICAgICANCiAgICAgIC AgICAgICAgICAgICAgICAgICAgICAgICAgICAgICAgICAgICAgICAgICAgICAgICAgICAgICAgICAgIC AgICAgICAgICAgICAgICAgICAgICAgICAgICAgICAg ICANCiAgICAgICAgICAgICAgICAgICAgICAgICAgICAgICAgICAgICAgICAgICAgICAgICAgICAgICAg ICAgICAgICAgICAgICAgICAgICAgICAgICAgICAgICAgICAgICAgICAgICANCiAgICAgICAgICAgICAg ICAgICAgICAgICAgICAgICAgICAgICAgICAgICAgIC AgICAgICAgICAgICAgICAgICAgICAgICAgICAgICAgICAgICAgICAgICAgICAgICAgICAgICANCiAgIC AgICAgICAgICAgICAgICAgICAgICAgICAgICAgICAgICAgICAgICAgICAgICAgICAgICAgICAgICAgIC AgICAgICAgICAgICAgICAgICAgICAgICAgICAgICAg ICAgICANCiAgICAgICAgICAgICAgICAgICAgICAgICAgICAgICAgICAgICAgICAgICAgICAgICAgICAg ICAgICAgICAgICAgICAgICAgICAgICAgICAgICAgICAgICAgICAgICAgICAgICANCjw/xEFmC9pzpZWk mpZ9O6pgNf9XWv7SVX1pb1RqIDHyDSdwpeUjOsqPQd AiLXBgTuwEVds9YHpvWG2PjYVlR5AnH9EvTQdmCO3MFRAcMDTplPLsEHTdVWWoLiP7IMNoKUgkIP3ZgM TcLJagZLMmNFDoQqXdBKOsIDQcGCSrIILzWQRSHTKwTMHfQiRwOGTeWPEvYXlpKPJIHNM4UVNpLfMjZV YaHLIhOmBaXEHBLDC9FMIwVpXvNoGiUCRuSR2LYSVa C297yiPsFZXQGx3+NKmrfbJhLkmEPrJcWDRgc4OqDNd0BO3JGERkTgcma3HgPpAvIXDORLrsFL1RGDA4 AQN0UNSsCt8GJBLiD033arRnGH3DQy8USsMzMU1avu8FSbUbVKAcUufEFgf8JOwaSV5JnEVoRGzCMrGc OpxcA0dyvQN0m6FtOKHrShSRQR0hPS6zSEHZNuSfpI B0YgZ0RbLwIaMzUCL0GpboCM1sQDphOA5LJKD1BNqvPKSdCXNtG3uMPoOhGUQfVHIdzPkuIV5PEwBfY0 QgrtStrER6QuLvNZBPWh3+RGeovkPoYnuFSnO5IJTrk2BuPGj7CB1ATGMgQKmtOG5ETQJnkT4mZAsxUY 5KDpU3MKWfNHMXFlNlS70pqLXlVVp1Q9ZxCiYuASRn RmlsZXMgPDwvTmFtZXMgWyBdDQogID4+ID4+MNvtZO9GXIgfdpScJZJxDk5XPVNmLNCjAF8kUBJhCWCg K2S8oStqUTQZZdFvS7okdppcMA3dCQHfV138oDrsgoXsTIDpZBFtVz7LHZOtGVE9HHWcvOXuHjNfTNXP GEyzIN4WnVJvCWI7dU5nBHuyTAMoUGQoF2rAZmUtkY zjAM20jPlhncMwxPGgTNt+Jr9JWC8fw2CaCRh8lnZkHJixPFZ7FOriVFVeCOQmIGLsQKQ8XVO0DSUSXd YrVBTsNDUqTOddOHPjECNovt9POJOwEWY0HdsnUgMeBFCxTXUnFOaiKJCrLOw2NTO2OXPsHEAaUU0GRs ObPMNkFPWgQQbeVELoTPGesu1BXDMvGZLtQbt6BcGg NYDzYRBpBIitOPLlPXF5FSdxHUSyAAElML3BRxXlBYVoFHt4IXMdVHWjKOZnik9YTFHpDZDuKwwjAPXz UBDaIHZkHAujQIUgMEMlVtVgDGMiJYYuNQ4FTjZzFUMiRTO7PZSaYWVaFGPphy2FYAVsNINwVMQ9NGLp CLIcUARfXEbrQEEwSKE3TfQ5ZHTyXFAqGC1GAnGqHM MgVQnrYuckZHPuEGNpzu3YWOYyPEKzUxD8YLZtHKZlWNTyUHpiLYAzIRK8Mlb6LAYbAJEaYS0WQsJaUM FeHGr0QAWmEKFjFTYczq0LJUAqMYOmMcSpRMBrSXZaMGKkQJvjFIClQEVtHrTeJKIvCCNwNR9OUsWtUN EoAnA9JTGaOPRgZEKjxk5PITPzOSXlCAC4ViPtBMNu GYFeFFnsEQWmQIJ9JHP2OGXiEPRrNG9OUxYuKCYjYtclLPUoKXExXDZcmc4GDRTtGLQaInL0QYOvPSXt LQGfREwyLAWwQKGjCATtQLWrEKAcQA3ISvYtTNDsLxF2VXClIUXeSFTxck4RYNBuWCNeUvRqLBGjJVZb PDBtNFqqREFaLIY9Xxp9JNSzHTOrQI3JKuSpVWBeXm t3BTYhWRDmSALxro9BIZBeTPM9AXz2DZNkSUTqGNIoUTjcJPFlBWYbOEHzECMfPJVsUY8THgLhQAPqIK QtCTZnAVEpNYIgmg9ZRLSpQMU5LwUhAnXzCQFwQZGpVUjbCJInAKNfAGF0NBUdOJYeZL5EGkGjFTMjMM I5CPUbQWBjYSNjzf9AQWYeTVL6PhC8FdIdVGWgRLYx KPgrZXKcFIGyYzYwKBBuLJZuSS9DLxQoRZAyDYW8CwScWFOaLNKfau3SHOHyWDZ8BPy9IqLeZDMsATFs BWivQQTnJSF9IXIpMTEoHCYtSO6OMwKpICNlVQVrLSVjRZXjRIXphd3NVDVoRQQ4HbY7TyTjITDvBMBc TInrBDZuROT7MUUpAYFqEOQgZL6RTcHvBVHkZYX3TD RpWTZjXXStxq9NQJVeYKA4TDU9KZSrAEGtPVQnHUozOQHkOCD9HDVnTPUgAJJrWF3HJrNeSDNyYAa5Xz InTBXyHQCgeo4WDGXwHLP1XMi4EEMxDHBuWMNgGJjrQMPrGME9ECN8YKRaZHYqHR4BLxWkGHZtWhW2Lt JoLUIaMECype2GOAXhOLR7ERR9UQXcRDZyQIHqZZna YCLcUYU6PPHpBREvYBUyOL6TYhEaYGXgFeH7GBFoGTWyWDRlzn9YXXMiFBM5YBq1OSJyJIPkCVRvHYer MVWzQDA3LLM6OJPtBEYtDU9ZIgChNJTmTyGhVDXvKPDaWBVqna6KNIShIZO2SKTmFYDvXAUqDFXmPPnr VYWtHBy1Ntw9DJGyWAHmHK6ORrVrEIHoPgkhRVIsCX JvJZAvns4CJCRbIDF7IwIcBUKnLSRpHMXxCXbwWDXwHYe9BIB2BZPvYZHsHM8ZGsHnHNTxWab0VLDpGS YmTZRnsn8TCMJwEBS1WRM2QrHkQIPzHDKdGGapXYXnDWr2InFcXHVtDAFfCM3DAkEzWWHsNbx4BICnRB ChTUBnhm5QERWyZPD3QNfzVbErKBEaPCJqOXr9yfTf vZQtAXw7HB7PW7MzyxFrTfMUYj7If540RAO7JYMuOn5NO6amGl5hTORiHEMBKp2WCZa7VvHeMDUjOcXh BhRmXTPvGdz4MnaoTDY5PwB4GiV4SRB+JXg5A7N8UyTmIKGyU4M8ETIlLsowRkK9RbudVKiqMlZgDj2y XSANCj4+KRxpsTEsrXcpTRGOVsnnFIdeFEnxCUXTKs6X ID Date Data Source [id number] 04/05/2021 08:52:29 AM T [facility] Name Value Range Interpretation Code Description Data Stephanie rce(s) Supporting Document(s) [facility] BNJYJb3gPjJZGyGtz3JoZxMpUQYqAM3wotm4S3L8qHXvK8ZuoWIwh5mcZ7QbH2TcHHQeQCYGER4WiFPs jb2 [file] 9fmJ/DppFNplhj7WeoPb+9V2mkm8H73zE9j+Brionna/X4kCm6IepTjIhNULzgrLS/pTOkYCH2bsvHt73o0j Y/9xof9QEfjExebjmKUvGc7uqWQ45j7zU61r8x9Zak Xazh3KvtPzy7qo5v2VoVXdiQKcZ2Sz6OhqJT6JqQ066lejK+b0+Dw/dT1D9bS1ov/f46dW90KtwTvUqY db70HMnrpMo6jExv/LvcI3CS0bq5G0JF0fS4DhPa22cx94QbVT0dua2GiU0K6U/IaaJeySoSi4nBdKlQ TvB7iReLMhw5kBX8ScyweWhviArxQGC+O3rBp4ME2Z a7f4awLlQi5CcEwxhnrB7FpCSEjpGp62JLcKTHnQXjBkvAH+B1cvja591s3mCCY1wvP+T0GqriSEaz8I tNUFJKv27rReS2l4yokngPUgDzF3l+i70/l9yRKDD/b7fZKPqhW6T4VeKYAC3a4eA6gcCjm3Eq+maría/O [file] V2e5LRJnJGmeDO0nxzHoETEeRcuxOk8btPC7QMXpAslZAw3Rv8GjsjQ9lqMmKlY8JDU0ShFbZF5Z ID Date Data Source [id number] 04/05/2021 08:52:16 AM EDT [facility] Name Value Range Interpretation Code Description Data Stephanie rce(s) Supporting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 [place] ([phone]) and [place] ([phone]) anytime Wednesday thru Wednesday 8 to 10am. [place] ([phone]) anytimeWednesday thru Wednesday 8 to 10am. [place] ([phone]) Wednesday or Wednesday from 8to 10am (Bring $30 to First Appt) SMOKIN G CESSATION* Smoking is dangerous to your health. It delays the healing process, andworks against your medications. Not smoking will improve your health* Our hospital participates with the Opt-to-Quit program. You will be contactedafter discharge by the [facility] Smoker's Quitline for support with tobaccocessation. You have the option once contacted to refuse this service.* You can also go online to www.Serious Parody. Free nicotine replacementsare available Attention* You should contact your follow up Physician as it is important that you lethim or her check you and report any new or remaining problems. If yourcondition worsens, follow up with your provider or visit our EmergencyDepartment. If you received pain medication, anxiety medications, musclerelaxants, or any medication that causes drowsiness, you cannot operatemachiSLR Consultingy, power tools, or drive.Safe ActSafe Act Completed NoiStopiStop completed NoEND ENDDICT: 04/03/21935 Electronically SignedTRANS:04/03/21935 BOGDAN MACIAS MDTRANS BY:DATE SIGNED:04/03/21TIME SIGNED: 936REPORT COPY TO: Name Value Range Interpretation Code Description Data Stephanie rce(s) Supporting Document(s) ID Date Data Source [id number] 04/02/2021 02:31:00 PM EDT [place] [id number] PSYCHIATRIC ASSESSMENTPATIENT NAME: YARELI HATCH MR#: [id number] PHYSICIAN: BOGDAN MACIAS MDAUTHOR: Colleen SMITH,Bogdan DATE: 04/01/21 RM#: 3RDHistoryIdentificationPatient is 20-year-old female, currently single, lives at [facility], pastpsych history of borderline personality disorder, bipolar disorder, PTSDChief ComplaintSuicidal ideationHistory of Presenting IllnessInformation from emergency room,he patients chief complaint is Pt presents tot ED with [place] [employer] due to Pt contacting them stating that she issuicidal with a plan. Pt reports increased depression and being suicidal with aplan to hang self, overdose or jump off a bridge. Pt reports that she was [facility] Pt reports that she is still feeling suicidal and was unable tocontract for safety so doesn't know why they discharged her. Pt reportsincreased stress due to; not feeling safe at her [facility] residence due to anotherresident, increased family conflict due to being transgender and an ex being inprison. Pt states that she has not been following the rules at [facility]. Pt deniesHI. Pt denies any recent suicide attempts, last being February 2020 by overdose.Pt does have an extensive history of suicide attempts, reporting 10+. Ptreports self harm by scraping her arm with a knife three weeks ago. Pt reportsattending outpatient services at the [facility] in [place]. Pt r eportsthat she has been eating more due to increased stress and hasn't been sleepingfor approximately three weeks now. Pt reports inconsistent medicationcompliance due to being in and out of the ER and refusing medications. Ptdenies drug and alcohol use. Pt denies hallucinations. Pt denies access toguns. Pt reports that she is currently on an AOT and has been since 01/09/21. [place]on reports pending disorderly conduct and harassment charges.During [...] she wants togo to crisis center in [place] but discussed with her regarding that she [...] history: Patient is currently single, lives at [facility], getting DSS supportand poor family support as [...] ideations and requesting to bedischarged back to [facility] and 1 point she wanted to go [...] discharged from the emergency room back to [facility] if patientmaintains her safety. 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 Patient needsextensive [...] rce(s) Supporting Document(s) ID Date Data Source [id number] 04/01/2021 08:58:[address] PM [address]T [address] [address]NVGDXWC AND PHYSICALPATIENT NAME: YARELI HATCH MR#: [id number] PHYSICIAN: BROOKLYN ONEILL MDAUTHOR: Neil Yusuf MD DATE: 04/01/21 RM#: [id number] & PHYSICAL DATE: 04/01/21 : 00EVALUATION TIME: 2113HisChi Complaint/Admit ReasonDepression and suicidal ideations.History of Presenting Lbqzohb05-qjos-ulw female who is morbidly obese presents to the ED complaints ofsuicidal ideations and increased depression. While in the ED patient patienttried to elope and also became aggressive to medical staff was also hitting herhead on the wall. Patient eventually required medications in the ED and wasplaced on four-point restraints. [facility]. Patient [...] 122/69 122/69B/P MeanPulse Ox 98O2 DeliveryO2 Flow ImuzPtI5Htrstskn ExaminationGeneral Appearance Patient refused to be examined.Data ReviewLaboratory DataRecent Labs-48 hours03/30937 6455 9114ChemistrySodium (136 - 147 mmol/L) 141Potassium (3.5 - [...] 0.02Nucleated RBC % (auto) (0 %) 0SerologyCOVID-19 (COREDLL) (NEGATIVE) NEGAT IVEToxicologySalicylates (0.0 - 20.0 mg/dL) < 1.7Opiates Screen (NEGATIVE) NEGMethadone Screen (NEGATIVE) NEGAcetaminophen (0 - 30 ug/mL) < 2.0Barbiturate Screen (NEGATIVE) NEGPhencyclidine Screen (NEGATIVE) NEGAmphetamines Screen (NEGATIVE) NEGBenzodiazepines (NEGATIVE) NEGCocaine Screen (NEGATIVE) NEGCannabinoids (NEGATIVE) NEGEthyl Alcohol (NONE DETECTED g/dL)UrinesUrine Color YellowUrine Appearance CloudyUrine pH (5.0 - 8.0) 6.0Ur Specific [place] (1.010 - 1.025) 1.031 HUrine Protein (Negative) [...] rce(s) Supporting Document(s) ID Date Data Source [id number] 03/31/2021 09:46:52 AM EDT [facility] Name Value Range Interpretation Code Description Data Stephanie rce(s) Supporting Document(s) ED Provider Notes 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 [file] company driver+ip+fB8wm5xnaK/TP/CaZN3eXvqMnvlqSMcuxiO [file] E+DQogICAgICAgICAgICAgICAgICAgICAgICAgICAg ICAgICAgICAgICAgICAgICAgICAgICAgICAgICAgICAgICAgICAgICAgICAgICAgICAgICAgICAgICAg ICAgICAgICAgICAgDQogICAgICAgICAgICAgICAgICAgICAgICAgICAgICAgICAgICAgICAgICAgICAg ICAgICAgICAgICAgICAgICAgICAgICAgICAgICAgIC AgICAgICAgICAgICAgICAgICAgICAgDQogICAgICAgICAgICAgICAgICAgICAgICAgICAgICAgICAgIC AgICAgICAgICAgICAgICAgICAgICAgICAgICAgICAgICAgICAgICAgICAgICAgICAgICAgICAgICAgIC AgICAgDQogICAgICAgICAgICAgICAgICAgICAgICAg ICAgICAgICAgICAgICAgICAgICAgICAgICAgICAgICAgICAgICAgICAgICAgICAgICAgICAgICAgICAg ICAgICAgICAgICAgICAgDQogICAgICAgICAgICAgICAgICAgICAgICAgICAgICAgICAgICAgICAgICAg ICAgICAgICAgICAgICAgICAgICAgICAgICAgICAgIC AgICAgICAgICAgICAgICAgICAgICAgICAgDQogICAgICAgICAgICAgICAgICAgICAgICAgICAgICAgIC AgICAgICAgICAgICAgICAgICAgICAgICAgICAgICAgICAgICAgICAgICAgICAgICAgICAgICAgICAgIC AgICAgICAgDQogICAgICAgICAgICAgICAgICAgICAg ICAgICAgICAgICAgICAgICAgICAgICAgICAgICAgICAgICAgICAgICAgICAgICAgICAgICAgICAgICAg ICAgICAgICAgICAgICAgICAgDQogICAgICAgICAgICAgICAgICAgICAgICAgICAgICAgICAgICAgICAg ICAgICAgICAgICAgICAgICAgICAgICAgICAgICAgIC AgICAgICAgICAgICAgICAgICAgICAgICAgICAgDQogICAgICAgICAgICAgICAgICAgICAgICAgICAgIC AgICAgICAgICAgICAgICAgICAgICAgICAgICAgICAgICAgICAgICAgICAgICAgICAgICAgICAgICAgIC AgICAgICAgICAgDQogICAgICAgICAgICAgICAgICAg ICAgICAgICAgICAgICAgICAgICAgICAgICAgICAgICAgICAgICAgICAgICAgICAgICAgICAgICAgICAg ITTrIJAsQIObAOPhNFGtXUMuNJXhVPr7W5adYEDtJDTmDO9jDIw0Eg4+ERaAEaUlRNF7nlHtdS2ITJ0u r7ZyNWmxHMXhz8FfKXn8FO6JTWXlVIjtQE0VLXkpxk 8EFUPhIPGvkODMj3spAyCaXNG7DPDdSxfrCA6ADUGtY4qtbzWlXDEpNGSFDGsfYBQEYOxlWTCFZNKcIF HxUzIgNRukHT4Pv1XmhKA0LTc+Lg8HOX7ca6QkEBrcHUMmMK2cgl7DPWaRCtWcA8IdwgM2DDS4LKYvLq 4GSVEePWFykBFePRMwXCLTAwZqZ1NdmY66BBCXOo6+ NRtrpaRjYtwVKtM2EKNbt1VuIIt5MS4CNSFrGLn3pWGcFZDdVXWztzltIEVsYv73TXOdMxgdXwAtNnwt hpTHONOnnxwdERCHMLEhfUD0TwJgAkJgQXDvTCxnYdPXJPqYWpJuK8Rdz0EqJaQ0QPCmEyAcVWqoIKGn OkF2ZS04gFfgKX2AVUIoLXQjXV38ZNB9RHSrQb4CHa 4SPyKiCM8yzy5VHiWrGRQgKckMRic5ICutDI9ZuAOiK0PyuYWmk8bPPnUlM3NBQNYwXJPqTj5NYVBnPu VyMCPcEAacPQ2hLNUwMNMWdDiibkL5IH8BPN0yrsDpII6YWrXlNi5lOd3JTtVwY5AxC5DzPCNgIAHSJH iuWP7XQGplOZ6wFM0Pw1OPrYKlqD2owe6CDFJbOHRk Uaagqd8CBygcN8J4aBvxHGKdPrZdQVRQLKikSZ0ZMNKbGXR6UZRzExWoMRSSGvNwF25xEU3OU7Gke01c ZuY1HMOmFkPoWMciHQ12kVzcszUytTMqrJdbVY6BEp2+DQplbmRvYmoNCnhyZWYNCjAgMzcNCjAwMDAw ZMGrSNKjKeX9ZtZeFq2UYXNjTSMzJPYoWcOgIRRbYL SkXRqxYPVdCMC2PYP3NBZlEGEqCK7PGmMqNVFrTgPjZyHtUWFgPEXead1SIYNvQRXoUEG9QdLrTCJrDU OkSZchPHLgFOZtXLVqXVCrZTJsEK8HFiJvKPMdSPSgQoHtDBNeZWYqcm5ZZEDwDKLvCATgVLYaMTYzAT IdCJbxQZJlVLZ6KbI9YZPoBPUhFZ3KEsJaUCTdPUf1 XOHdWKQbHPTzwv1MEIPsYJOyFCQ0JqRvFMJyXTZmDOvjKYDlOYU4BmWzZNExNJXmPZ4BYlOjQZPiZAu0 XdEmJKFpNVFxci8MYESyUUIoSBFjACEkCSUmVDZlRZfqZSCkAZAwSsI0QSJqZOTzXK3EVdNeJULyCFW0 SUXqZBZtDMAyvg9YSUJnCLFcEEr1XPTwPYNpUTPjUI dbZIUzBCLaBGyyHFOiMGUnFE7ZWeGpAEJvKPDvOOSfBAPdHXMere4UBZGtCSCkSjMwXHWtPSYzXUMzXC lyDRKeBJWuQBGuAZXePBNhPB8DYdIrVZRcFKT7VYNvGLZlWXXunb8EIUAuZGXzBVG2AKFiDJShGEHpDE lmDOSwLZA5XzcaMHSnHQYkJU3OSoVfMOTiEWA6TEWd YQYuPUZnxa2HYPWcKYOsEvUiWzVlWYFkBIKwTEdmYVGyEWC8ZsWnASQnLYBrXR7WRlDuUHBfDxx7OiIe ZBMbSBIznd8CBOPcWVVlYET3YPYbRKXjAORkITwjFNAyXRD3DiP0VLBlZQNkLS1SNxAqJYXtDrddGWfe VIXbMGXmcy7LYBAhASGxHSW9XrIaGVClFAAmALpgPY DbREO6ZLC8FTLuWFAxSV5WJsWfKSCjXek5SMCeBXEdBHVbvd1QUSUkGLIgZMT2OVKkKRVqFYAnXGjhHJ WzVFVnTSSqDMHzTGCzIU4RKzLiQNHaAfP7YwQyDLPkAHGjwe6RtHGqeLwszo4OOFuYFx0MxOhzHSR4JX obVn6lsPTvWwNcTHADSs0KveFrYJGyQFLRJJhbQXXy GNGpOIVsRVT7LcXoLfT8KBWyPVZdTZG8BoUxCXAdAKAvSnH9GoIvYEIrOLZsVSIlICy5KbY6KWL6IUxd M9EaUWZlCnS+XL4kKGq+Sj2Rh8LfjuR4grFvNPzkAZemJF5FXAKEU6RROy== ID Date Data Source [id number] 03/30/2021 11:59:00 PM EDT [facility] Name Value Range Interpretation Code Description Data Stephanie rce(s) Supporting Document(s) WBC 11.60 x10E3/uL 4.0-10.5 [facility] RBC 4.43 x10E6/uL 4.20-5.40 [facility] Hemoglobin 13.1 g/dL 12.0-16.0 [facility] Hematocrit 39.0 % 37.0-47.0 [facility] MCV 88.0 fL 81.0-99.0 [facility] MCH 29.6 pg 27.0-31.0 [facility] MCHC 33.6 g/dL 32.7-35.6 [facility] RDW 11.9 % 11.5-14.0 [facility] Platelet count 283 x10E3/uL 150-450 N [facility] ital MPV 9.7 fl 6.9-9.5 H [facility] Neutrophils 68.5 % 34-64 H [facility] Lymphocytes 23.7 % 25-45 L [facility] Monocytes 6.5 % 1.7-10.6 [facility] Eosinophils 0.7 % 0.4-7.0 [facility] Basophils 0.2 % 0.1-2.0 [facility] Imm. Gran. 0.4 % 0.1-2.0 [facility] Abs. Neutro. 7.95 x10E3/uL 1.2-7.6 [facility] Abs. Lymph. 2.75 x10E3/uL 1.0-3.5 [facility] Abs. [place]. 0.75 x10E3/uL 0.1-1.0 [facility] Abs. Eosin. 0.08 x10E3/uL 0.1-0.7 [facility] Abs. Baso. 0.02 x10E3/uL 0.0-0.1 [facility] Abs. Imm. Gran. 0.05 x10E3/uL 0.0-0.1 N [facility] spital ANRBC% 0 % 0 [facility] ID Date Data Source [id number] 03/31/2021 12:19:00 AM EDT [facility] Name Value Range Interpretation Code Description Data Stephanie rce(s) Supporting Document(s) SALICYLATE < 1.7 mg/dL 0.0-20.0 [facility] ID Date Data Source [id number] 03/31/2021 12:19:00 AM [facility] Name Value Range Interpretation Code Description Data Stephanie rce(s) Supporting Document(s) ETOH NONE DETECTED [facility] NONE DETECTED ID Date Data Source [id number] 03/31/2021 12:19:00 AM EDT [facility] Name Value Range Interpretation Code Description Data Stephanie rce(s) Supporting Document(s) ACETAMINOPHEN < 2.0 ug/mL 0-30 [facility] Date Data Source [id number] 03/31/2021 12:19:00 AM EDT [facility] Name Value Range Interpretation Code Description Data Stephanie rce(s) Supporting Document(s) GLU 106 mg/dL 70-110 [facility] Patients taking Sulfasalazine may have f alsely depressedGlucose levels. Patients taking Sulfapyridine may havefalsely elevated Glucose levels. Patients should be drawnfor Glucose before the initial administration of eitherdrug. BUN 15 mg/dL 7-23 [facility] CRE 0.590 mg/dL 0.500-1.300 [facility] GFR > 60 mL/min [facility] CHLORIDE 107 mmol/L 99-110 [facility] NA 141 mmol/L 136-147 [facility] POTASSIUM 4.1 mmol/L 3.5-5.1 [facility] TCO2 24 mmol/L 20-33 [facility] ANION GAP 14.1 10.0-20.0 [facility] CA 8.6 mg/dL 8.3-10.7 [facility] ALKALINE PHOS 125 U/L 45-117 H [facility] TP 7.5 g/dL 6.0-7.8 [facility] ALB 3.7 g/dL 3.5-5.0 [facility] ESRD Dialysis patient Albumin reference range: 2.9-4.4 g/dL GL 3.8 g/dL 2.3-3.5 [facility] A/G 1.0 1.0-2.5 [facility] T. BILIRUBIN 0.3 mg/dL 0.1-1.1 [facility] [place] Total Bilirubin is n ot recommended forpatients undergoing treatment with eltrombopag (Promacta)due to the potential for falsely elevated results. ALTI 52 U/L 6-54 [facility] Patients taking Sulfasalazine and/or Sul fapyridine may havefalsely depressed ALT levels. Patients should be drawn forALT before the initial administration of either drug. AST 30 U/L 6-38 [facility] Patients taking Sulfasalazine and/or Sul fapyridine may havefalsely depressed AST levels. Patients should be drawn forAST before the initial administration of either drug. ID Date Data Source [id number] 03/30/2021 11:45:00 PM EDT [facility] Name Value Range Interpretation Code Description Data Stephanie rce(s) Supporting Document(s) LCOVID-19, CORDELL NEGATIVE [facility] This lab was ordered by [facility] and reported by [facility]. ID Date Data Source [id number] 03/31/2021 12:12:00 AM EDT [facility] Name Value Range Interpretation Code Description Data Stephanie rce(s) Supporting Document(s) COVID-19, CORDELL NEGATIVE NEGATIVE [facility] Methodology: Isothermal [...] Emergency Use Authorization. ID Date Data Source [id number] 03/31/2021 12:33:00 AM EDT [facility] Name Value Range Interpretation Code Description Data Stephanie rce(s) Supporting Document(s) PCP VISTA NEG NEGATIVE [facility] MINIMUM LEVEL OF DETECTION IS 25 ng/ml BENZODIAZEPINES NEG NEGATIVE [facility] MINIMUM LEVEL OF DETECTION IS 200 ng/ml COCAINE VISTA NEG NEGATIVE [facility] MINIMUM LEVEL OF DETECTION IS 300 ng/ml AMPHETAMINES NEG NEGATIVE [facility] al MINIMUM LEVEL OF DETECTION IS 1000 ng/ml BARBITURATES NEG NEGATIVE [facility] al CUTOFF CONCENTRATION IS 200 ng/ml CANNABINOIDS NEG NEGATIVE [facility] al CUTOFF CONCENTRATION IS 50 ng/ml METHADONE VISTA NEG NEGATIVE [facility] al MINIMUM LEVEL OF DETECTION IS 300 ng/ml OPIATE VISTA NEG NEGATIVE [facility] MINIMUM DETECTION LEVEL IS 300 ng/ml ID Date Data Source [id number] 03/31/2021 12:13:00 AM EDT [facility] Name Value Range Interpretation Code Description Data Stephanie rce(s) Supporting Document(s) URINE RBC None Seen NONE SEEN [facility] URINE WBC 0-2 WBCs/HPF NONE SEEN [facility] URINE BACTERIA Few NONE [facility]EN [facility] URINE EPI. Moderate NONE SEEN [facility] ID Date Data Source [id number] 03/31/2021 12:13:00 AM EDT [facility] Name Value Range Interpretation Code Description Data Stephanie rce(s) Supporting Document(s) URINE COLOR Yellow [facility] UAPR Cloudy [facility] UGLU Negative NEGATIVE [facility] URINE BILIRUBIN Negative NEGATIVE [facility] al UKET Negative NEGATIVE [facility] USG 1.031 1.010-1.025 [facility] UBLO Negative NEGATIVE [facility] UpH 6.0 5.0-8.0 [facility] UPRO Trace Negative [facility] UUB 1.0 mg/dL 0.2-1.0 [facility] UNIT Negative Negative [facility] ULEU Trace Negative [facility] ID Date Data Source [id number] 03/31/2021 12:13:00 AM EDT [facility] Name Value Range Interpretation Code Description Data Stephanie rce(s) Supporting Document(s) HCG QUAL URINE Negative Negative [facility] l ID Date Data Source [id number] 04/01/2021 06:53:00 PM EDT [facility] Physician DocumentationClaxton-Naveen Hinkle edical CenterName: Yareli DuvallAge: 20 yrsSex: FemaleDOB: 2000MRN: [id number] Date: 03/30/2021Time: 23:26Account#: [id number] 1Polga MD: NONE, - Per PatientED Physician Richie [...] symptoms: Pertinent negatives: abdominal pain, chestpain, fever, ot9cbzoiubd, nausea, shortness of breath, vomiting. Patient is brought in [facility]. Patient reports suicidal ideation with [...] Eyes: Negative for acute changes.ENT: Negative for ie2dxksb discharge, rhinorrhea, sinus congestion. Neck: Negative for [...] 48.58 (136.53 kg, 167.64 cm)jw5003/2118:40 Pain Scale: AdultjlMDM:03/1923:42 Patient medically screened.:57 Data [...] name: ETOH; Complete Time: 00::38 Order name: Mghjnolto382/1923:38 Order name: Salicylate Level; Complete Time: 00::38 [...] Order name: Medically Cleared for Eval by-Psychosocial, Motivational Speaker (YE):02 Order name: Mental Health Level 4; Complete Time: 05:0 3qb7Fakvrajzi Medications:03/2003:48 Drug: OLANZapine 10 mg [olanzapine 10 mg tablet (1 tabs)] Route: PO;jw504:30 Follow up: Response: No adverse reaction; No change in :08 Drug: Geodon 20 mg [ziprasidone 20 mg/mL (final concentration)intramuscular solution jw5(1 mL)] Route: IM; Site: left deltoid;07:13 Follow up: Response: No adverse rorvcmjepx243/2100:00 Drug: Geodon 20 mg [ziprasidone 20 mg/mL (final concentration)intramuscular solution tp2(1 mL)] Route: IM; Site: left deltoid;00:30 Follow up: Response: No adverse nnuehvkszy846:00 Drug: LORazepam 2 mg [lorazepam 2 mg/mL injection solution (1 mL)] Route:IM; Site: dp3ufqez deltoid;00:30 Follow up: Response: No adverse dphmyegeae600:00 Drug: diphenhydrAMINE 50 mg [diphenhydramine 50 mg/mL injection solution(1 mL)] Route: tp2IM; Site: right deltoid;00:30 Follow up: Response: No adverse abgudmqyjn730:22 Drug: LORazepam 2 mg [lorazepam 2 mg/mL injection solution (1 mL)] Route:IM; Site: jlright vastus lateralis;10:33 Follow up: Response: Anxiety oxnfmkklojq817:23 Drug: diphenhydrAMINE 50 mg [diphenhydramine 50 mg/mL injection solution(1 mL)] Route: jlIM; Site: right vastus lateralis;10:33 Follow up: Response: Anxiety yqotzebbkpk805:24 Drug: Geodon 20 mg [ziprasidone 20 mg/mL (final concentration)intramuscular solution jl(1 mL)] Route: IM; Site: right vastus lateralis;10:33 Follow up: Response: Anxiety dtjyfhrsede8Iieacjdegv:Dispatcher [employer] Kylie Fishman MD MD seHowland, Todd, MD MD de8BycfjFortunato Mark RN RN pp4XbWgfuhBertha linares RN RN jlPutBreonna yu, RN RN iz0XejtwpdyAmi RN ef1 Name Value Range Interpretation Code Description Data Stephanie rce(s) Supporting Document(s) ID Date Data Source [id number] 04/01/2021 06:53:00 PM EDT [facility] Nurse's NotesClaxMary [facility] terName: Yareli DuvallAge: 20 yrsSex: FemaleDOB: 2000MRN: [id number] Date: 03/30/2021Time: 23:26Account#: [id number] 1Priash MD: NONE, - Per PatientDiagnosis: Free text-PTSD, bipolar with depressionPresentation:03/1923:28 Presenting complaint: Patient brought in by [employer] officer [facility]5evaluation due to patient calling reporting suicidal [...] a largeofamount of people live, such as long-term, family care, nursing home, etc? no. Haveyoutraveled to a location with widespread or ongoing COVID-19 community spread oroutsOr[facility]? no Have you traveled internationally or h ad contact with someonethat hastraveled and has been ill in the past 3 weeks? no Have you received the COVIDvaccine?Yes. Communicable Disease Screen: Negative for fever>/= 100 degrees Fahrenheit.Communicable disease screen is negative. (-) rash or unusual skin lesion (-)travel/contact with traveler (-) respiratory symptoms. Communication SpeaksEnglish?Yes, is preferred language.23:28 Acuity: Triage 4uy511:28 Method Of Arrival: Mlkincrc242:30 Acuity Assignment: Triage 9qc8Ndzazj Assessment:23:33 General: Appears in no apparent distress, [...] threats or abuse. Denies injuries from another.Nutritional ax5itpwcubfl: No deficits noted. Offer of HIV testing: patient was previouslyofferedscreening. Fall Risk None identified.Assessment:23:44 Reassessment: see triage.jw509/2000:54 Reassessment: No changes from previously documented assessment.jw503:24 Reassessment: after PSA informed patient that she would have to wait tillmorning and xb8iyrg the morning psychiatrist decide if she would [...] 10 mg po to helpwith anxiety MD stricklandcb3qeqzyevk and order received and medication given .05:02 Reassessment: Patient was using a marker to color as a coping strategyand took marker bn6rwhvz and cut left forearm with part of [...] of the ER and wasturned around by wn4gzyhb without incident .06:53 Reassessment: No changes from previously documented assessment.jw507:13 Reassessment: Patient appears in no apparent distress at this time.ef109/2100:14 Reassessment: At around 2345 patient started to try to push way throughER door several ft9opezqeuq made to keep patient turned around, patient [...] several attempts to elope and threatening staff tiane called; ef1pt screams "you are all cunts im gonna spit in all your faces im gonna killyou";placed in four point restraints.10:33 Reassessment: released from restraints at 1020.ef111:37 Reassessment: Patient appears in no apparent distress at this time. ptsleeping. ml418:44 Reassessment: pt sitting talking and joking with staff in a bright mood.iq8Bkreitrmjids:03/2002:34 SAFE Act Report Not Completed. Intervention: Observation Level 3. Mentalhealth consult hfis initiated at 01:50. Referral Information: Evaluation referral is generatedby apolice agency: [facility]. The patient was referred for evaluationbecausesuicidal i deation with a plan. Subjective: The patients chief complaint is Ptpresentsto the ED with [facility] due to Pt contacting them stating that she issuicidalwith a plan. Pt reports increased depression and being suicidal with a plan tohangself, overdose or jump off a bridge. Pt reports that she was at [facility] and transferred to [facility] yesterday and discharged. Ptreports thatshmainor is still feeling suicidal and was unable to contract for safety so doesn'tknow whythey discharged her. Pt reports increased stress due to; not feeling safe ather TLSresidence due to another resident, increased family conflict due to beingtransgenderand an ex being in correction. Pt states that she has not been following the rulesat TLS.Pt denies HI. [facility] any [facility] Pt does have an extensive history of suicide attempts, reporting 10+.Ptreports self harm by scraping her arm with a knife three weeks ago. Pt reportsattending outpatient services at the community [facility] in [place]. Pt reportsthat shehas been eating more due to increased stress [...] overdose 02/2020 Mental HealthAdmissions:multiple, last being at [facility] 03[facility]/21 Current Outpatient Mental HealthServices:Psychiatrist / Agency: eulalia ([facility] in [place]). Therapist /Agency:Grayson Farley ([facility] in [place]). Living Environment: The patientcurrently lives in a [facility] residence. Patient presents to Emergency Departmentwith thefollowing [...] structure. pills. Homicidal Ideation: Denies.02:56 Narrative This documentation writer spoke with Dr. Simon, Dr. Simon recommendskeeping Pt in the ED hfat this time and presenting Pt to the psychiatrist on during the day.Consultation:Psych MD informed of patient's status at 02:56, ED MD notified of patientsstatus at02:56. Disposition: Medically cleared for disposition by Dr Argueta.PsychiatricConsult is performed by phone with Dr Siomn. The patient is not a servicemember ormilitary dependent. [place] Suicide Severity Rating Scale: Suicidal IdeationRating 3;Intensity of Ideations Rating 15; Suicidal Behavior Rating 0.07:39 Narrative PSA role handed off to this documentation writer at 0730 AM.hf07:53 Narrative PSA role handed off to this documentation writer at 0730 AM.em210:49 Narrative Pt is sleeping. Sitter is present. Safety is maintained .em212:43 Narrative Pt is sleeping. Sitter is present. Safety is maintained.em217:17 Legal Status: Patient's legal status will be Emergency: 9.39. DSM-V DXAxis I zo6rtdjseiix: Other Borderline Personality Disorder [place] II diagnosis: DeferredAxis IIIdiagnosis: None. [place] IV diagnosis: poor coping skills. InsurancePre-Certification:Not Required. [facility] A dmission Criteria: The patient is experiencing [...] status will be Emergency: 9.39. Commitmentpapers are jw8laidezvjg. Pt has been provided a copy of their legal status and rights. DSM- VDX AxisI diagnosis: Bipolar D/O, depressed Post Traumatic Stress Disorder. Transitionof careto Pt will be transported to [facility] with [facility] and [facility].Psych:03/1923:37 Subjective: Patient's mood is elevated, Delusions are denied,Hallucinations are denied hj4Rcnqky thoughts of suicide. Plan for suicide is [...] by Nurse.jw523:55 Fortunato Mark RN is Primary Nurse.jw509:55 S itter at bedside.jw503:37 Sitter at bedside.jw505:23 Sitter at bedside.jw506:53 Sitter at bedside.jw519:17 Primary Nurse role handed off by Fortunato Mark RNjw509/2099:29 Fortunato Mark RN is Primary Nurse.jw502:27 Sitter [...] Response: No adverse reaction; No change in hywvcbvddav692:08 Drug: Geodon 20 mg [ziprasidone 20 mg/mL (final concentration)intramuscular solution jw5(1 mL)] Route: IM; Site: left deltoid;07:13 Follow up: Response: No adverse tpwhwpoxmf555/2100:00 Drug: Geodon 20 mg [ziprasidone 20 mg/mL (final concentration)intramuscular solution tp2(1 mL)] Route: IM; Site: left deltoid;00:30 Follow up: Response: No adverse gupthqsuwe979:00 Drug: LORazepam 2 mg [lorazepam 2 mg/mL injection solution (1 mL)] Route:IM; Site: rd3zaagq deltoid;00:30 Follow up: Response: No adverse jkrodtbpmd249:00 Drug: diphenhydrAMINE 50 mg [diphenhydramine 50 mg/mL injection solution(1 mL)] Route: tp2IM; Site: right deltoid;00:30 Follow up: Response: No adverse wfuxlwylgd339:22 Drug: LORazepam 2 mg [lorazepam 2 mg/mL injection solution (1 mL)] Route:IM; Site: jlright vastus lateralis;10:33 Follow up: Response: Anxiety vpfucrcqozt529:23 Drug: diphenhydrAMINE 50 mg [diphenhydramine 50 mg/mL injection solution(1 mL)] Route: jlIM; Site: right vastus lateralis;10:33 Follow up: Response: Anxiety mdytlmmwaxm496:24 Drug: Geodon 20 mg [ziprasidone 20 mg/mL (final concentration)intramuscular solution jl(1 mL)] Route: IM; Site: right vastus lateralis;10:33 Follow up: Response: Anxiety dzadlipjtcd4Ulxmoqg:18:06 Disposition: Admitted to Kqcfjaf683:06 Condition: stable, Provider notified of abnormal vital signs.18:06 Discharge instructions given to patient, Instructed on need for admit,Demonstratedunderstanding of instructions.18:06 Discharge Assessment: Patient verbalized understanding of dispositioninstructions.Patient has no functional deficits.18:33 Decision to Hospitalize by Provider.se18:53 Patient left the ED.jlSignatures:Vincenzo Luis, RN JOSE LUIS fbgVa [facility] SystemKylie murcia MD MD seHowland, Todd, MD MD es7Pehtr, Fortunato, RN RN km4SpietcqoAmi arthur, RN JOSE LUIS vv3LsBglguBertha Collier RN RN jlFrank, Breonna, RN JOSE LUIS gj4Fspmw, Danae, JOSE LUIS AMAYA pr6Laoym, Vani Styles hfCorrections: (The following items were [...] off of the bed bysticking her head jo4cskprqc the guard rail, very aggressive and tried to hurt staff, called staff"dumbsluts" and told us to "go kill ourselves". Notified, placed in 4 pointrestraints.tp2 Name Value Range Interpretation Code Description Data Stephanie rce(s) Supporting Document(s) ID Date Data Source [id number] 03/28/2021 12:00:00 AM EDT [facility] Name Value Range Interpretation Code Description Data Stephanie rce(s) Supporting Document(s) Sodium 139 mmol/L 136-145 Normal (applies to non-numeric resul ts) [facility] Potassium 3.5-5.1 Below low normal [facility] spital Chloride 105 mmol/L 98-107 Normal (applies to non-numeric resul ts) [facility] Carbon Dioxide CO2 21-32 Normal (applies to non-numer ic results) [facility] Anion Gap 5.0-16.0 Normal (applies to non-numeric resul ts) [facility] BUN 21 mg/dL 7-18 Above high normal [facility] ospital Creatinine,Serum 0.7-1.2 Normal (applies to non-numeric results) [facility] GFR >60 Normal (applies to non-numeric results) [facility] Glucose Level 137 mg/dL 60-99 Above high normal [facility] Reference range is only applicable when patient is fasting Note the following drug interference: Sulfasalazine Sulfapyridine Can see falsely depressed Can see falsely elevated result with up to 17% results with up to 11% decrease in measurement increase in measurement Recommend patients be collected for this test prior to administration of either drug. Calcium 8.5-10.1 Below low normal [facility] spital Bilirubin,Total 0.1-1.9 Normal (applies to non-numeric results) [facility] SGOT(AST) 20 U/L 15-37 Normal (applies to non-numeric resul ts) [facility] Note the following drug interference: Sulfasalazine Sulfapyridine Can see falsely depressed Can see falsely elevated result with up to 10% results with up to 10% decrease in measurement increase in measurement Recommend patients be collected for this test prior to administration of either drug. SGPT(ALT) 48 U/L 12-78 Normal (applies to non-numeric resul ts) [facility] Note the following drug interference: Sulfasalazine Sulfapyridine Can see falsely depressed Can see falsely elevated result with up to 29% results with up to 10% decrease in measurement increase in measurement Recommend patients be collected for this test prior to administration of either drug. Alkaline Phosphatase 114 U/L 38-126 Normal (applies to non-num deena results) [facility] can increase Alkaline Phosp le vels up to 2 times the normal adult value. Normal values for children and adolescents are 2 to 3 times the normal adult value. Total Protein 6.0-8.2 Normal (applies to non-numeric re sults) [facility] Albumin Level 3.4-5.0 Normal (applies to non-numeric re sults) [facility] ID Date Data Source [id number] 03/28/2021 12:00:00 AM T [facility] Name Value Range Interpretation Code Description Data Stephanie rce(s) Supporting Document(s) Troponin I 0.000-0.056 Normal (applies to non-numeric resu lts) [facility] ID Date Data Source [id number] 03/28/2021 12:00:00 AM [facility] Value Range Interpretation Code Description Data Stephanie rce(s) Supporting Document(s) Magnesium 1.8-2.4 Normal (applies to non-numeric resul ts) [facility] ID Date Data Source [id number] 03/28/2021 12:00:00 AM [facility] Name Value Range Interpretation Code Description Data Stephanie rce(s) Supporting Document(s) Salicylate 2.8-20.0 Below low normal [facility] ID Date Data Source [id number] 03/28/2021 12:00:00 AM [facility] Value Range Interpretation Code Description Data Stephanie rce(s) Supporting Document(s) Acetaminophen 10.0-30.0 Below low normal [facility] ID Date Data Source [id number] 03/27/2021 11:58:00 PM EDT [facility] Name Value Range Interpretation Code Description Data Stephanie rce(s) Supporting Document(s) Ethanol Less than 10.0 Normal (applies to non-numeric r esults) [facility] ID Date Data Source [id number] 03/27/2021 11:36:00 PM EDT [facility] Name Value Range Interpretation Code Description Data Stephanie rce(s) Supporting Document(s) White Blood Count 3.5-10.5 Normal (applies to non-numeri c results) [facility] Red Blood Count 3.90-5.00 Normal (applies to non-numeric results) [facility] Hemoglobin 12.0-15.5 Normal (applies to non-numeric resul ts) [facility] Hematocrit 34.9-44.5 Normal (applies to non-numeric resul ts) [facility] Mean Corpuscular Volume 81.2-95.1 Normal (applies to non- numeric results) [facility] Mean Corpuscular Hgb 25.6-32.2 Normal (applies to non-num deena results) [facility] Mean Corpuscular Hgb Conc 32.0-36.0 Normal (applies to no n-numeric results) [facility] Red Cell Distribution Width 11.9-15.5 Normal (appli es to non-numeric results) [facility] Platelet Count 254 x10 3/uL 150-450 Normal (applies to non-numeric results) [facility] Mean Platelet Volume 9.4-12.4 Normal (applies to non-num deena results) [facility] Neutrophils% (Auto) 31.0-71.0 Normal (applies to non-nume frank results) [facility] Lymphocytes% (Auto) 20.0-55.0 Normal (applies to non-nume frank results) [facility] Monocytes% (Auto) 4.0-12.0 Normal (applies to non-numeri c results) [facility] Eosinophils% (Auto) 1.0-8.0 Normal (applies to non-nume frank results) [facility] Basophils% (Auto) 0.0-2.0 Normal (applies to non-numeri c results) [facility] Immature Granulocytes% (Auto) 0.0-2.0 Normal (alexander lies to non-numeric results) [facility] Neutrophils# (Auto) 1.50-6.20 Normal (applies to non-nume frank results) [facility] Lymphocytes# (Auto) 1.20-4.00 Normal (applies to non-nume frank results) [facility] Monocytes# (Auto) 0.00-0.90 Normal (applies to non-numeri c results) [facility] Eosinophils# (Auto) 0.00-0.50 Normal (applies to non-nume frank results) [facility] Basophils# (Auto) 0.00-0.20 Normal (applies to non-numeri c results) [facility] Immature Granulocytes# (Auto) 0.00-7.00 No rmal (applies to non-numeric results) [facility] ID Date Data Source [id number] 03/28/2021 12:21:00 AM EDT [facility] First test? [facility]ed [facility] re? UNKNOWNSymptomatic per CDC? UNKNOWNIf yes date of onset? 03/27/21Hospitalized? UNKNOWNICU? UNKNOWNResident in congregated care? ex long-term, [facility] UNKNOWN? UNKNOWN Name Value Range Interpretation Code Description Data Stephanie rce(s) Supporting Document(s) SARS-CoV-2 RNA Negative Normal (applies to non-numeric r esults) [facility] Negative results should be treated as pr [...] Certificate of Accreditation. Factsheets for healthcare providers: https://www.fda.gov/media/495270/download Factsheets for patients: https://www.fda.gov/media/463816/download The ID NOW Instrument is a rapid molecular in vitro diagnostic test utilizing an isothermal nucleic acid amplification technology intended for the qualitative detection of nucleic acid from the SARS-CoV-2 viral RNA. THIS IS A STATE REPORTABLE COMMUNICABLE DISEASE. Manual entry verified by Aysha Andrade 03/28/21 0020 ID Date Data Source [id number] 03/28/2021 12:05:00 AM EDT [facility] Name Value Range Interpretation Code Description Data Stephanie rce(s) Supporting Document(s) HCG,Ur Negative Normal (applies to non-numeric results) [facility] ID Date Data Source [id number] 03/27/2021 11:58:00 PM EDT [facility] Name Value Range Interpretation Code Description Data Stephanie rce(s) Supporting Document(s) UDS Benzodiazepines Screen Negative Normal (applies to n on-numeric results) [facility] UDS Cocaine Screen Negative Normal (applies to non-numer ic results) [facility] UDS Ampetamine Screen Negative Normal (applies to non-nu meric results) [facility] UDS Cannabinoids Screen Negative Normal (applies to non- numeric results) [facility] UDS Opiates Screen Negative Normal (applies to non-numer ic results) [facility] UDS Barbiturates Screen Negative Normal (applies to non- numeric results) [facility] Threshold Levels Benzodiazepine 200 ng/mL Cocaine 300 ng/mL Amphetamines 1000 ng/mL Cannabinoids (THC) 50 ng/mL Opiates 300 ng/mL Barbiturates 200 ng/mL All positive findings are presumptive and unconfirmed. Confirmation of positive results are performed only at request of provider. Unconfirmed results must not be used for non-medical purposes (i.e. preemployment and legal purposes) ID Date Data Source [id number] 03/27/2021 11:37:00 PM EDT [facility] Collected By: Nurse Name Value Range Interpretation Code Description Data Stephanie rce(s) Supporting Document(s) Color,Urine Colorl-Dk Y Normal (applies to non-numeric res ults) [facility] Clarity,Urine Clear Normal (applies to non-numeric re sults) [facility] Specific [place],Urine 1.005-1.030 [facility] pH,Urine 5.0-8.0 Normal (applies to non-numeric resul ts) [facility] Protein,Urine Negative Normal (applies to non-numeric re sults) [facility] Glucose,Urine Negative Normal (applies to non-numeric re sults) [facility] Ketones,Urine Negative Normal (applies to non-numeric re sults) [facility] Blood,Urine Negative Normal (applies to non-numeric resu lts) [facility] Bilirubin,Urine Negative Normal (applies to non-numeric results) [facility] Urobilinogen,Urine 0.2-1.0 Normal (applies to non-numer ic results) [facility] Leukocyte Esterase,Urine Negative Normal (applies to non -numeric results) [facility] Nitrite,Urine Negative Normal (applies to non-numeric re sults) [facility] ID Date Data Source [id number] 03/27/2021 10:35:00 PM EDT [facility] Name Value Range Interpretation Code Description Data Stephanie rce(s) Supporting Document(s) Respiratory specimen severe acute respir atory syndrome coronavirus 2 (SARS-CoV-2) RNA Negative (qualifier value) [facility] and reported by . ID Date Data Source [id number] 03/25/2021 09:40:00 PM EDT [facility] Name Value Range Interpretation Code Description Data Stephanie rce(s) Supporting Document(s) Respiratory specimen severe acute respir atory syndrome coronavirus 2 (SARS-CoV-2) RNA Negative (qualifier value) [facility] This lab was ordered by [facility] and reported by . ID Date Data Source [id number] 03/25/2021 10:10:00 PM [facility] Collected By: Nurse Initials: cs Time Collected: 2142 Collected By: Nurse Initials: cs Time Collected: 2142 Collected By: Nurse Initials: cs Time Collected: 2142 Name Value Range Interpretation Code Description Data Stephanie rce(s) Supporting Document(s) Color,Urine Colorl-Dk Y Normal (applies to non-numeric res ults) [facility] Clarity,Urine Clear Normal (applies to non-numeric re sults) [facility] Specific [place],Urine 1.005-1.030 [facility] pH,Urine 5.0-8.0 Normal (applies to non-numeric resul ts) [facility] Protein,Urine Negative [facility] Glucose,Urine Negative Normal (applies to non-numeric re sults) [facility] Ketones,Urine Negative Normal (applies to non-numeric re sults) [facility] Blood,Urine Negative Normal (applies to non-numeric resu lts) [facility] Bilirubin,Urine Negative [facility] Urobilinogen,Urine 0.2-1.0 Normal (applies to non-numer ic results) [facility] Leukocyte Esterase,Urine Negative Normal (applies to non -numeric results) [facility] Nitrite,Urine Negative Normal (applies to non-numeric re sults) [facility] ID Date Data Source [id number] 03/25/2021 10:10:00 PM [facility] Collected By: Nurse Initials: cs Time Collected: 2142 Collected By: Nurse Initials: cs Time Collected: 2142 Collected By: Nurse Initials: cs Time Collected: 2142 Name Value Range Interpretation Code Description Data Stephanie rce(s) Supporting Document(s) RBC,Urine None Seen [facility] WBC,Urine None Seen [facility] Casts,Urine None Seen Normal (applies to non-numeric resu lts) [facility] Epithelial Cells,Urine None - Few Normal (applies to non-n umeric results) [facility] Squamous Cells,Urine None Seen [facility] Bacteria,Urine None Seen [facility] ID Date Data Source [id number] 03/25/2021 10:10:00 PM [facility] Collected By: Nurse Initials: cs Time Collected: 2142 Collected By: Nurse Initials: cs Time Collected: 2142 Collected By: Nurse Initials: cs Time Collected: 2142 Name Value Range Interpretation Code Description Data Stephanie rce(s) Supporting Document(s) HCG,Ur Negative Normal (applies to non-numeric results) [facility] This is a Corrected Result --- 03/25/212206 --- Ur HCG previously reported as: Negative ID Date Data Source [id number] 03/25/2021 10:04:00 PM [facility] Name Value Range Interpretation Code Description Data Stephanie rce(s) Supporting Document(s) SARS-CoV-2 RNA Negative Normal (applies to non-numeric r esults) [facility] Negative results should be treated as pr [...] Certificate of Accreditation. Factsheets for healthcare providers: https://www.fda.gov/media/809546/download Factsheets for patients: https://www.fda.gov/media/765119/download The ID NOW Instrument is a rapid molecular in vitro diagnostic test utilizing an isothermal nucleic acid amplification technology intended for the qualitative detection of nucleic acid from the SARS-CoV-2 viral RNA. THIS IS A STATE REPORTABLE COMMUNICABLE DISEASE. Manual entry verified by Rachel Leslie 03/25/212202 ID Date Data Source [id number] 03/25/2021 10:04:00 PM EDT [facility] Name Value Range Interpretation Code Description Data Stephanie rce(s) Supporting Document(s) UDS Benzodiazepines Screen Negative Normal (applies to n on-numeric results) [facility] UDS Cocaine Screen Negative Normal (applies to non-numer ic results) [facility] UDS Ampetamine Screen Negative Normal (applies to non-nu meric results) [facility] UDS Cannabinoids Screen Negative Normal (applies to non- numeric results) [facility] UDS Opiates Screen Negative Normal (applies to non-numer ic results) [facility] Negative Normal (applies to non- numeric results) [facility] Threshold Levels Benzodiazepine 200 ng/mL Cocaine 300 ng/mL Amphetamines 1000 ng/mL Cannabinoids (THC) 50 ng/mL Opiates 300 ng/mL Barbiturates 200 ng/mL All positive findings are presumptive and unconfirmed. Confirmation of positive results are performed only at request of provider. Unconfirmed results must not be used for non-medical purposes (i.e. preemployment and legal purposes) ID Date Data Source [id number] 03/25/2021 09:47:00 PM EDT [facility] Name Value Range Interpretation Code Description Data Stephanie rce(s) Supporting Document(s) Ethanol Less than 10.0 Normal (applies to non-numeric r esults) [facility] ID Date Data Source [id number] 03/25/2021 09:17:00 PM EDT [facility] Name Value Range Interpretation Code Description Data Stephanie rce(s) Supporting Document(s) White Blood Count 3.5-10.5 Normal (applies to non-numeri c results) [facility] Red Blood Count 3.90-5.00 Normal (applies to non-numeric results) [facility] Hemoglobin 12.0-15.5 Normal (applies to non-numeric resul ts) [facility] Hematocrit 34.9-44.5 Normal (applies to non-numeric resul ts) [facility] Mean Corpuscular Volume 81.2-95.1 Normal (applies to non- numeric results) [facility] Mean Corpuscular Hgb 25.6-32.2 Normal (applies to non-num deena results) [facility] Mean Corpuscular Hgb Conc 32.0-36.0 Normal (applies to no n-numeric results) [facility] Red Cell Distribution Width 11.9-15.5 Normal (appli es to non-numeric results) [facility] Platelet Count 264 x10 3/uL 150-450 Normal (applies to non-numeric results) [facility] Mean Platelet Volume 9.4-12.4 Normal (applies to non-num deena results) [facility] Neutrophils% (Auto) 31.0-71.0 Normal (applies to non-nume frank results) [facility] Lymphocytes% (Auto) 20.0-55.0 Normal (applies to non-nume frank results) [facility] Monocytes% (Auto) 4.0-12.0 Normal (applies to non-numeri c results) [facility] Eosinophils% (Auto) 1.0-8.0 Normal (applies to non-nume frank results) [facility] Basophils% (Auto) 0.0-2.0 Normal (applies to non-numeri c results) [facility] Immature Granulocytes% (Auto) 0.0-2.0 Normal (alexander lies to non-numeric results) [facility] Neutrophils# (Auto) 1.50-6.20 Normal (applies to non-nume frank results) [facility] Lymphocytes# (Auto) 1.20-4.00 Normal (applies to non-nume frank results) [facility] Monocytes# (Auto) 0.00-0.90 Normal (applies to non-numeri c results) [facility] Eosinophils# (Auto) 0.00-0.50 Normal (applies to non-nume frank results) [facility] Basophils# (Auto) 0.00-0.20 Normal (applies to non-numeri c results) [facility] Immature Granulocytes# (Auto) 0.00-7.00 No rmal (applies to non-numeric results) [facility] ID Date Data Source [id number] 03/25/2021 09:55:00 PM EDT [facility] Name Value Range Interpretation Code Description Data Stephanie rce(s) Supporting Document(s) Sodium 141 mmol/L 136-145 Normal (applies to non-numeric resul ts) [facility] Potassium 3.5-5.1 Normal (applies to non-numeric resul ts) [facility] Chloride 106 mmol/L 98-107 Normal (applies to non-numeric resul ts) [facility] Carbon Dioxide CO2 21-32 Normal (applies to non-numer ic results) [facility] Anion Gap 5.0-16.0 Normal (applies to non-numeric resul ts) [facility] BUN 12 mg/dL 7-18 Normal (applies to non-numeric results) [facility] Creatinine,Serum 0.7-1.2 Normal (applies to non-numeric results) [facility] GFR >60 Normal (applies to non-numeric results) [facility] Glucose Level 96 mg/dL 60-99 Normal (applies to non-numeric re sults) [facility] Reference range is only applicable when patient is fasting Note the following drug interference: Sulfasalazine Sulfapyridine Can see falsely depressed Can see falsely elevated result with up to 17% results with up to 11% decrease in measurement increase in measurement Recommend patients be collected for this test prior to administration of either drug. Calcium 8.5-10.1 Normal (applies to non-numeric resul ts) [facility] Bilirubin,Total 0.1-1.9 Normal (applies to non-numeric results) [facility] SGOT(AST) 27 U/L 15-37 Normal (applies to non-numeric resul ts) [facility] Note the following drug interference: Sulfasalazine Sulfapyridine Can see falsely depressed Can see falsely elevated result with up to 10% results with up to 10% decrease in measurement increase in measurement Recommend patients be collected for this test prior to administration of either drug. SGPT(ALT) 52 U/L 12-78 Normal (applies to non-numeric resul ts) [facility] Note the following drug interference: Sulfasalazine Sulfapyridine Can see falsely depressed Can see falsely elevated result with up to 29% results with up to 10% decrease in measurement increase in measurement Recommend patients be collected for this test prior to administration of either drug. Alkaline Phosphatase 126 U/L 38-126 Normal (applies to non-num deena results) [facility] can increase Alkaline Phosp le vels up to 2 times the normal adult value. Normal values for children and adolescents are 2 to 3 times the normal adult value. Total Protein 6.0-8.2 Normal (applies to non-numeric re sults) [facility] Albumin Level 3.4-5.0 Normal (applies to non-numeric re sults) [facility] ID Date Data Source [id number] 03/25/2021 09:55:00 PM EDT [facility] Name Value Range Interpretation Code Description Data Stephanie rce(s) Supporting Document(s) Troponin I 0.000-0.056 Normal (applies to non-numeric resu lts) [facility] ID Date Data Source [id number] 03/25/2021 09:55:00 PM EDT [facility] Name Value Range Interpretation Code Description Data Stephanie rce(s) Supporting Document(s) Magnesium 1.8-2.4 Normal (applies to non-numeric resul ts) [facility] ID Date Data Source [id number] 03/25/2021 09:55:00 PM EDT [facility] Name Value Range Interpretation Code Description Data Stephanie rce(s) Supporting Document(s) Salicylate 2.8-20.0 Below low normal [facility] ID Date Data Source [id number] 03/25/2021 09:55:00 PM EDT [facility] Name Value Range Interpretation Code Description Data Stephanie rce(s) Supporting Document(s) Acetaminophen 10.0-30.0 Below low normal [facility] ID Date Data Source [id number] 03/25/2021 07:15:08 AM EDT [facility] Name Value Range Interpretation Code Description Data Stephanie rce(s) Supporting Document(s) Discharge Summary [facility] UFZBBp7gZjPJHeSa90/RKQznSXSii8CqVQerDRj3OUkvPYXwK9FxSVD4cZ1jMXY9GCeMKgPjGkFuSLU6 lbm [file] alLL8I4bbzbSSbIAmXIVy++/nascar racer//ux9WebuUeDuklMePSbaFxj/fV9IH6Pqm1XBS/WOIEjGslPHMFZG6 [file] TZT2gKCkFe6XSuPyXMVIHxXdYA0VPGi= ID Date Data Source [id number] 03/24/2021 09:16:00 AM EDT [facility] Exam Number: [id number] Reported By: - SHIVAM OSCAR MD Signed By: SHIVAM OSCAR MD Name Value Range Interpretation Code Description Data Stephanie rce(s) Supporting Document(s) ID Date Data Source [id number] 03/21/2021 04:51:30 PM EDT [facility] Name Value Range Interpretation Code Description Data Stephanie rce(s) Supporting Document(s) History and Physical [facility] CCWTUd2kOhFDNhNn71/OHYzxXKOxn4ZkAOamBZa2VPidDBEjN9OfMQU1aL2xEFC3KKvGQuXeAqGbUOZp lbm [file] AgICAgICAgICAgICAgICAgICAgICAgICAgICAgICAgICAgICAgICAgICAgICAgICAgICAgICAgICAgIC IcGCTkKM8XSPIwIVYbTOSwIZNwKTJzAAUoFUBeWORt ICAgICAgICAgICAgICAgICAgICAgICAgICAgICAgICAgICAgICAgICAgICAgICAgICAgICAgICAgICAg QGCdROKlWQTtLWNvLLIqJF6QCXXmBBTxTMDjJMGkLLKbEIExVFHkGWTrJQRrUUPtXNUcYQCnSDSfZTRe ICAgICAgICAgICAgICAgICAgICAgICAgICAgICAgIC QrSPQvHQTgBOLjIALbFYWeQBPoCLJdMWLbVD3AQEBdZYFbYAMkTIScWLEzCTCvVWAxIDPiYXMlLNWzPU AgICAgICAgICAgICAgICAgICAgICAgICAgICAgICAgICAgICAgICAgICAgICAgICAgICAgICAgICAgIC WqQVYkLRUsKI4XEAYhUPPeUPVgUNEtMXVuRJEdTTMf ICAgICAgICAgICAgICAgICAgICAgICAgICAgICAgICAgICAgICAgICAgICAgICAgICAgICAgICAgICAg TKJnIKMaHJPyDCXmBDSlBZLwRY5IOJMkHSYmJCKvHJHbKAOdDUUcYPCpQYWvDQBaSCStQVEyBEPdSUNp ICAgICAgICAgICAgICAgICAgICAgICAgICAgICAgIC DaWNPtKDMaIQHlXXAzNUIgCZDqHLWcIUDrCXTxOP8BVBGiVJJsTWScYJCtOQOgEEFoAIGeZAKfHREpGI AgICAgICAgICAgICAgICAgICAgICAgICAgICAgICAgICAgICAgICAgICAgICAgICAgICAgICAgICAgIC UiGLIyDECgXVLwYS4TBPHoIPEvWKDrVKTxBUKzIGLr ICAgICAgICAgICAgICAgICAgICAgICAgICAgICAgICAgICAgICAgICAgICAgICAgICAgICAgICAgICAg BTIrBIOoEKGcVOFnAYXnPYUdYAUiMU8IOTBuUQOsZFBgQQSdJVBdSHGrSPSdFXSiXJEsCZOkIGBjOCFz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 Whd8MvWuI2FMcuKZMoPiAhgzRqXZS5xpUwdO5hbhSiZu1OZSLhQNdqknQsNoQEAu7DRvSpRY57OhfroK 1ldGE+DQogICAgICAgICAgICAgICAgICAgICAgICAg ICAgICAgICAgICAgICAgICAgICAgICAgICAgICAgICAgICAgICAgICAgICAgICAgICAgICAgICAgICAg ICAgICAgICAgICAgICAgDQogICAgICAgICAgICAgICAgICAgICAgICAgICAgICAgICAgICAgICAgICAg ICAgICAgICAgICAgICAgICAgICAgICAgICAgICAgIC AgICAgICAgICAgICAgICAgICAgICAgICAgDQogICAgICAgICAgICAgICAgICAgICAgICAgICAgICAgIC AgICAgICAgICAgICAgICAgICAgICAgICAgICAgICAgICAgICAgICAgICAgICAgICAgICAgICAgICAgIC AgICAgICAgDQogICAgICAgICAgICAgICAgICAgICAg ICAgICAgICAgICAgICAgICAgICAgICAgICAgICAgICAgICAgICAgICAgICAgICAgICAgICAgICAgICAg ICAgICAgICAgICAgICAgICAgDQogICAgICAgICAgICAgICAgICAgICAgICAgICAgICAgICAgICAgICAg ICAgICAgICAgICAgICAgICAgICAgICAgICAgICAgIC AgICAgICAgICAgICAgICAgICAgICAgICAgICAgDQogICAgICAgICAgICAgICAgICAgICAgICAgICAgIC AgICAgICAgICAgICAgICAgICAgICAgICAgICAgICAgICAgICAgICAgICAgICAgICAgICAgICAgICAgIC AgICAgICAgICAgDQogICAgICAgICAgICAgICAgICAg ICAgICAgICAgICAgICAgICAgICAgICAgICAgICAgICAgICAgICAgICAgICAgICAgICAgICAgICAgICAg ICAgICAgICAgICAgICAgICAgICAgDQogICAgICAgICAgICAgICAgICAgICAgICAgICAgICAgICAgICAg ICAgICAgICAgICAgICAgICAgICAgICAgICAgICAgIC AgICAgICAgICAgICAgICAgICAgICAgICAgICAgICAgDQogICAgICAgICAgICAgICAgICAgICAgICAgIC AgICAgICAgICAgICAgICAgICAgICAgICAgICAgICAgICAgICAgICAgICAgICAgICAgICAgICAgICAgIC AgICAgICAgICAgICAgDQogICAgICAgICAgICAgICAg ICAgICAgICAgICAgICAgICAgICAgICAgICAgICAgICAgICAgICAgICAgICAgICAgICAgICAgICAgICAg HDPhEFVtMCAqVJXyRBZqNLEtHNUcNCVzHQv5J0xnUOYpYVQzID8wTHx2Yg8+NYzQZxSeXCE6ppZnzG9E FB9gb0SbUFfkEIAci3LhYOc1NP5OGPZjWQwdRC7DKS qrgf3BOLTrXIYnqOLDb0qvWgJdPBZ8FVOvLrxbSN3RYARrG8ptxzHwDGJpQOQIMB6SUtWiC0AfpF00FL ENCj4+PEveiwLnHtbUZgRqOBXcc5ImPTn8BF8GFDYfSdjpz3XfFqFzIZEYBYkhRU4ZRCC1JWGyPIAfTh 1KDSRzL766sfIqQB9FTz1YWdTlQE9jiv8USiWyVOMt TyeLPjc6UAoaVR4XvQWsNCqIdJGijG4oSV7xaYPwRtwmYRvnnoWqJbwznRJrv8eow7beZJVKXGN5ABwt Ra8vRXGyXTJ1WaA9MVJTJB9CDWTbORSwuFHxAZPcZTQUDH2SHPhgXIC0FynbjwDwbBJpASopWZ1JEFPc bnQgMjIgMCBSDQo+Ki6NGU8tr0AeUBlpDULaEB3jxx 0TQGrHEsKaA7C1zRPfF1L9MMhjXj6GJDMrHHSdPsBwTLJULYtzVD5LDQ1sjkY4WH9JjGKqZZAzXTYxnT XqAUn1P57vvLGqJKueHZ0AHSE+Dillon+Rv7HHQSsRTXjJCFdLrLxBZUPPlMrW6EuJ2ROi4UbZ9MpFR30qA rafkGnXAnsCQ3KOK0bKDAaPRILJG1MfIWyuX8jpiZw MeTlDVXFPrHrP42sdIMxQSMmELIsKEEgPf1XZVQtQ2QajqHzkJfnzoTxRHTfBCIZMI9RXQppwgZfgYGh dValEY57cXcmRP8VRh1LJnVfAZ2gli2LcAClFe9ZCEAyEK7WUNNoBPCbDTUuATN1ZEMeQgXhZSbaVRKy ECNaYVS6XWZwLXThPG7YYmYbXBPfOXi9EEndMGOyUS Mzsv1JZRIfQAUgPDgbIzVpDZKjDIDbKBrlIHEaXXAsWUO3EOMfFKZvPP3EYfSaLAWoAEG4TqQtCTKuNX Brdd6KQOObPYQeIRuuDRMrXZKbPNPyYYwlFQYvEDXkSxrlECRiYDAcSW3BDtGnFXEzUJJ7BVOvQWBeGY Brmx4SARRjBNJiExG1NCVyXMZnNEIcBJngMOZcPVG8 DNN3ZEQeEMBeYZ5KVbOeQSBnEMPkXsNxUBAmOSJpoi0UYOLaXAAhOBBrKdNyCPVqSFBkQHreTLTiOZB5 CxA4AGBdUQZePZ9VOsDeKDMiELhzALXfRYDrGPEwmi1XFKCpXMJlPnV6QUBxSXYgCJQbLEquICZvMVM5 AAArAZHgKVTwQX3SIlVaMDTuTZm9QdCoPBOcOTOrzb 4ZPCGtTDVgOWWcJDVpUFBjRXEwZHlkXAEkMWB1ZBMtRYDvJLZzBA8ZIoYoDORmTNd6TsZqJOOyWFWthu 7UGLLkBYJrFKB8AfNyGJHyYFQvHCyaIIAyFUBoNMXoYBUxRLXrMQ7ARhVuDSLfPwJ9RJGdIOGmPZPcmv 3MTMExRBRlSGC8QGReMYQoOIKpAVw3ubHoqVHaKBa4 AC8ZB7TaeoIcBrTDCu2Ks980LSK8FFVrQt8VJ3roHy8jCVOeGYSMGf4UTJw6HsZ1IvA3PSR9VqrmOuj8 YThiZTRiMDMzYTNjYjUwYmI+OVqzKfHgMCm8RgXvISQnFisqJWHkQQKzGcFaN8BoEAPbTv9zHJPTVo8+ OGaxwCEucGycXTSOFuNvOli4PDozMUWIXq0D ID Date Data Source [id number] 03/14/2021 11:53:06 AM EDT [facility] Name Value Range Interpretation Code Description Data Stephanie rce(s) Supporting Document(s) Nursing Note [facility] PYAJJn9qHlLRVdHe44/WEZheBTOvp2WwMPjiPKw7BUgzYOGgW6PoYTQ7zL6eAKE6SIgBMbOzLmMuCYTe lbm [file] P5AAPiMoN4PvOcQxBfVhCtUvMyFA3FTw3ALqT2TER8pJWvQc7KKsNwSJaLIhGeIV6NWIp= ID Date Data Source [id number] 03/14/2021 11:44:44 AM EDT [facility] Name Value Range Interpretation Code Description Data Stephanie rce(s) Supporting Document(s) Care Plan [facility] EOOZXt5tQvJCGhKn83/ZCXyhBOVwh0RcDThjMCl4FZdqMPNuO8QtTEY4iJ0tDKC4CKiOHuCdErBnEATp lbm VrBarJBrTaBWWvAebLVpHlQPsrNubpiMKsDU6PwDS2OIOoT98vSNXmMXAcO2YiQHv0NP0+JAghONQ0az GmrQ3TDSGcEIbu7pLQos+w/5HQBmhZBQzzPplA0qVLocfLc0QWgjK3FX4nf5DD/ksRl4Pi54cY9lTYeN XYLpunRhbwfgCN7b0mbGFsGOM/2cS4QnhYnWbHBhDv FmLVKxFCCwQzLCwWuFfJ/3pMliACLEweRUggPSqUQKmPhDQOWCAA9UtXLiLlFsh2pIJiMNvjk+4xAxcO dGttBZb2yEgyeXixEy4i6rZ1sL6JI0rtesTxPXodrUKuM3RHNEMGYuv8eL7HzcMQoXBcHSvkDXXaNN1a 2rKGWtmdr3qfM7pT3oSpHRtbjsh0vRoNF39rbZykTz llBCS7bpAnYjW7ysgk/ZAZfuyyjEvyaG9vjM3FSeXpnON+bkXUvtqZ1r520U3OJAP8ufpw20qOJ6Mfm2 qg6GaTettYFUzyaIrzOCt8a6eFoF7IDNdiy87l++Jj6RiLx+mPcbrXEGbmDDeaV/rudy++IGmQI9YbTF7 [file] ICAgICAgICAgICAgICAgICAgICAgICAgICAgICAgIC AgICAgICAgICAgICAgICAgICAgICAgICAgICAgICAgICAgICAgICAgICAgICAgICAgICAgICAgICAgDQ ogICAgICAgICAgICAgICAgICAgICAgICAgICAgICAgICAgICAgICAgICAgICAgICAgICAgICAgICAgIC AgICAgICAgICAgICAgICAgICAgICAgICAgICAgICAg ICAgICAgICAgDQogICAgICAgICAgICAgICAgICAgICAgICAgICAgICAgICAgICAgICAgICAgICAgICAg ICAgICAgICAgICAgICAgICAgICAgICAgICAgICAgICAgICAgICAgICAgICAgICAgICAgDQogICAgICAg ICAgICAgICAgICAgICAgICAgICAgICAgICAgICAgIC AgICAgICAgICAgICAgICAgICAgICAgICAgICAgICAgICAgICAgICAgICAgICAgICAgICAgICAgICAgIC AgDQogICAgICAgICAgICAgICAgICAgICAgICAgICAgICAgICAgICAgICAgICAgICAgICAgICAgICAgIC AgICAgICAgICAgICAgICAgICAgICAgICAgICAgICAg ICAgICAgICAgICAgDQogICAgICAgICAgICAgICAgICAgICAgICAgICAgICAgICAgICAgICAgICAgICAg ICAgICAgICAgICAgICAgICAgICAgICAgICAgICAgICAgICAgICAgICAgICAgICAgICAgICAgDQogICAg ICAgICAgICAgICAgICAgICAgICAgICAgICAgICAgIC AgICAgICAgICAgICAgICAgICAgICAgICAgICAgICAgICAgICAgICAgICAgICAgICAgICAgICAgICAgIC AgICAgDQogICAgICAgICAgICAgICAgICAgICAgICAgICAgICAgICAgICAgICAgICAgICAgICAgICAgIC AgICAgICAgICAgICAgICAgICAgICAgICAgICAgICAg ICAgICAgICAgICAgICAgDQogICAgICAgICAgICAgICAgICAgICAgICAgICAgICAgICAgICAgICAgICAg ICAgICAgICAgICAgICAgICAgICAgICAgICAgICAgICAgICAgICAgICAgICAgICAgICAgICAgICAgDQog ICAgICAgICAgICAgICAgICAgICAgICAgICAgICAgIC AgICAgICAgICAgICAgICAgICAgICAgICAgICAgICAgICAgICAgICAgICAgICAgICAgICAgICAgICAgIC TpRZPvAIJnZJt3G9aaRNVaFTLoWU6dIAj4Qg7+BYcTToBiKZT2yyKmqX3RLG1pf3UrIWhgVJMri9VhFI o5JP1BDYNgSKteYP0NNZyjbe1CTOWtUEMaqUIXj1wf JaAtOWX4FNWbEjuyVQ4ZBHGoJ1tiahPtFRSgYFQOGB7ARtXvC5BsjD33QVWHGq1+DQplbmRvYmoNCjI1 IEIfw6UcRBs4YQ1WWYUgMdyor1RzSfVmLQCYXDqmHL9OOEL6ZGX7SQSrHs8PJKDgH038uoFpZO9NOg3N UfSvSI0bti6MJnInUGMbDwaHAly8MWgcNQ1NvJGzLT vTJXNmOLBhAH6aCpoqUDdancVfWoaigXAhj4kax4vfAGFDXHJ3RTwpQa0kCDTeMFRgSsZ1UBTGGF8XQK IpDOCreKMcUJCsLEJGDL2KFPweWNB4IgcqyxVhoXWuKOjhAY6ZWRSetbIcNbLnGYRUNEn+Au1EEL4sw7 BvCYfqNdMjOR8rfi1JLGsZStIaS0D2dHOnP4C2NQtx Wx7CZQPyYNCpTaErTAECNQbrAV3CHG3degF1JO5DsPBxITPxDMIouJTpWVg3D75lmSVeVHpvJK9NPAQ+ Dillon+Fe7MNJBpRHXsNCAuRcFyRVMJOnNnM1XtL8TBg3DyB4FnJU40bZdshgEkFNlwDH3UIC9jHBPwBKIW PQ3AwIUgnA7qyvKmGECaMJYFJlMaC85slHGhUTXeWZ U1YUCgXf2KZFQlU5JzimPgySttcyCmOGOrOYIDKF6QNLgyjwErtEOfkWnaOJ05oCwdFD3ZYt2SWlItUX 7nhz7OwEUtTj1BEMNbZO5NPDIhWNJlAQAcQUB7NMLhSqBeHPgfMQUfXCIzDHL2ZTHvGAYlWY9IVmXlYT IpZtEgYgNyLJGhMTDvkm1USFKrSQSjXJp3DcZrNUWu ISQeXGzmCAAmRHXiQWU8BOGmTRMpBO5XEfOdIOFtNRNvXoFgXBGdMVSziv4FBWRbMSXbWCEkOjXsTLHm KUGoTCmhZJThLHZlHrk4TXKmZQKeKY6OFzOmYNNvYBG1OPHrRXLwMWGipv9SMHMdVCTzJkj4GZAqKMSc GMGjGBseJGFzMRHnCkS8AZUiQJCcBW5KBcJoCTWyXZ W6HeDrXXIrQHYijd2UGKTeDBQfIVZmVLTsXJJwETPvFYkxFMJeTNH4QKM4WDMaXCZeML0EZmNdQRPoYY H3IGMxPYHkQUZwxt3KWFMdHOUfFdj3GqGiFKWbHGDoBBhfFMEcQUR1ZaNtWFAhJTCsNT7JKlQmBFHwXR jlRnfbOSDzVOHenv3HYTWkBQCkIMYbAQFgPAPrLDSr SMwbPDYcSXC9ETI4GCTmVXKrKU9NQsCkDUUbUMt0UTFoHKKhHHIvry0CJAHpTSHdABO1WsNsZQUjHAFk UXbbNUVbRXY7DSRvYOLeCVXxST6LPaVkRUSlZeMeZQPgDOQvORTfes8ZIQAsTNTlYXTyDnAfDIRgZMZb MQaxKIWfUFTcPGg1YBLnPMJjGN9NRzTeQTBgZxF0UT ZgFYUpNDIpra3VGUIzFFPiZhZ0PPHcBJDbDEEgJKc0npTqyVJaTUh9DE6BF8AdxiXuTjfXGz0Cx846MY R2PSTbJv8DR4buVw8yPUCgJVYNWo3CVPm1HWC5GJYrZQL1TwJ0YzHlUQzhZhQ9ShmjYpPtTMPcBmT+ID isRCp5OIL2GGi3DpK2JMArOCC1IizeDONcLDFeAYSb QI0nEUFPDb9+ZEqymPEnnGshVQKWOvLnQfM6ENavUWBYCz7S ID Date Data Source [id number] 03/14/2021 11:35:44 AM EDT [facility] Name Value Range Interpretation Code Description Data Stephanie rce(s) Supporting Document(s) Nursing Note [facility] FRXHPe4hTuECKwLo60/OODjeZSYro9WtDTbdFNq8YZwiBOThX6HfDFE4vW4kEJZ1CHpUYhMlUfQpXFHf lbm [file] OVuiAw1AGBIBG1VBKe== ID Date Data Source [id number] 03/14/2021 11:12:00 AM EDT [facility] Exam Number: [id number] Reported By: Maria De Jesus BARAJAS M.D. Signed By: Valeri BARAJAS M.D. Name Value Range Interpretation Code Description Data Stephanie rce(s) Supporting Document(s) ID Date Data Source [id number] 03/14/2021 10:21:29 AM EDT [facility] Name Value Range Interpretation Code Description Data Stephanie rce(s) Supporting Document(s) H&P [facility] YEKNPf5cEeNIGaYt20/CLDaqENWcq5MgSRceIVw1OEmnPXDyF6VaBPI2rM4wZHQ4QNmXWlNrLqJyIOFa lbm [file] yHRaRc3DSJN9XtXRDlIkVO9BZAr= ID Date Data Source [id number] 03/14/2021 05:34:50 AM EDT [facility] Name Value Range Interpretation Code Description Data Stephanie rce(s) Supporting Document(s) Nursing Note [facility] QPAJIk1wTiEZXzZp52/FNUbdMTZut3AnZSulWZg9GEsnLSQcX0UqICB1bS2wCVS2IQwCQtYjJjBrOXCr lbm [file] o= ID Date Data Source [id number] 03/14/2021 01:22:47 AM EDT [facility] Name Value Range Interpretation Code Description Data Stephanie rce(s) Supporting Document(s) Nursing Note [facility] ZCEJCi1lOxPQXvIm87/ZNQezNBFwj2TtUQaaZVt9PDdxXSOjG2JbJWV8gH7dIYE2FSjOJfAiNnTuJHSc lbm [file] Ud5POhW4ZIF7nMUrOr1MVaSkAuCODfEsCA3ZBSu= ID Date Data Source [id number] 03/13/2021 10:37:10 PM EDT [facility] Name Value Range Interpretation Code Description Data Stephanie rce(s) Supporting Document(s) Nursing Note [facility] JSFSXa9rFtPBBeHm60/RXZizANAgx9ByRTrlSVi7QEtqWZSeK1AsQXK2kL6tZJL5TEwRHuRxSbYlIQRi lbm [file] Qh6KJnS0MAO5cDUwSa0XAyKuJWJNXwNzQF8RLNd= ID Date Data Source [id number] 03/13/2021 07:24:52 PM EDT [facility] Name Value Range Interpretation Code Description Data Stephanie rce(s) Supporting Document(s) Care Plan [facility] TGDAKe6gLzMLZnTd57/EMZgbIOUfb3OpRSuhZZm4VKvpVLHgO0ZsYIE8qD6gGWM9GGrUTwIaThMoPMIs lbm [file] 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+9D9OT7//+BSMMpqu1SSjhPxzaLX0sB9P4a4luYawLsd+z9dDsKdQTSsucQq3ETErQRzk74z0RLif [file] DQo= ID Date Data Source [id number] 03/13/2021 06:53:54 PM EDT [facility] Name Value Range Interpretation Code Description Data Stephanie rce(s) Supporting Document(s) Nursing Note [facility] RWHCHx0uFaKKZaHo97/NWVfgMTTjt7CwMJpmSHf8SVllDGUhB2SpEQL8fX3tHZF6JYwLYjRpXbRhDGYn lbm [file] AgICAgICAgICAgICAgICAgICAgICAgICAgICAgICAg ICAgICAgICAgICAgICAgICAgICAgICAgICAgICAgICAgICAgICAgICAgICAgICAgICAgICAgICAgICAg ICAgICAgICANCiAgICAgICAgICAgICAgICAgICAgICAgICAgICAgICAgICAgICAgICAgICAgICAgICAg ICAgICAgICAgICAgICAgICAgICAgICAgICAgICAgIC AgICAgICAgICAgICAgICAgICANCiAgICAgICAgICAgICAgICAgICAgICAgICAgICAgICAgICAgICAgIC AgICAgICAgICAgICAgICAgICAgICAgICAgICAgICAgICAgICAgICAgICAgICAgICAgICAgICAgICAgIC ANCiAgICAgICAgICAgICAgICAgICAgICAgICAgICAg ICAgICAgICAgICAgICAgICAgICAgICAgICAgICAgICAgICAgICAgICAgICAgICAgICAgICAgICAgICAg ICAgICAgICAgICANCiAgICAgICAgICAgICAgICAgICAgICAgICAgICAgICAgICAgICAgICAgICAgICAg ICAgICAgICAgICAgICAgICAgICAgICAgICAgICAgIC AgICAgICAgICAgICAgICAgICAgICANCiAgICAgICAgICAgICAgICAgICAgICAgICAgICAgICAgICAgIC AgICAgICAgICAgICAgICAgICAgICAgICAgICAgICAgICAgICAgICAgICAgICAgICAgICAgICAgICAgIC AgICANCiAgICAgICAgICAgICAgICAgICAgICAgICAg ICAgICAgICAgICAgICAgICAgICAgICAgICAgICAgICAgICAgICAgICAgICAgICAgICAgICAgICAgICAg ICAgICAgICAgICAgICANCiAgICAgICAgICAgICAgICAgICAgICAgICAgICAgICAgICAgICAgICAgICAg ICAgICAgICAgICAgICAgICAgICAgICAgICAgICAgIC AgICAgICAgICAgICAgICAgICAgICAgICANCiAgICAgICAgICAgICAgICAgICAgICAgICAgICAgICAgIC AgICAgICAgICAgICAgICAgICAgICAgICAgICAgICAgICAgICAgICAgICAgICAgICAgICAgICAgICAgIC AgICAgICANCiAgICAgICAgICAgICAgICAgICAgICAg ICAgICAgICAgICAgICAgICAgICAgICAgICAgICAgICAgICAgICAgICAgICAgICAgICAgICAgICAgICAg ICAgICAgICAgICAgICAgICANCjw/eRTbD7wcgXQxjqL4B6osTw4PGx7IYS6jr3TxMSWvOQglvdEfYmrN PzZoQDWaOeqRWgd2LWrdTD2AyUDpW9FzT8OkNOwiVM 6QZVYlXZEghKTiNOOgXNLyVlX2GFYqWQvvDG1MtAXdSLoqOQKhIIQjHK1VMGMcH377glTiRG5FIk7EDs SyIE5rno4HYjBlOJMqQxwYZtm6THgxBW2TdRFtyJXiOvOmHPMHSkJuD7pnz7UwUuHzESQLSDxmMT8Xx8 VudCAxDQo+Ze2PJH6dn3RnGVwzGwUcTU0fbi3WLOaO TuLdG1HzzNgyWK24toAcgtexMq68WTHcoWWTk8RsVcHHK9P7KU2nUPIMEQB3DXzqOw2sJOLxOUB0MkA3 FKUXJE1GSCOcGABwbNPmBKKvTSQPYY6NQQdcMSG5ZpvqinHstTTiQWqcUG6CQTBzfqBxSoTkZZWIXAm+ By3WKV0oi9RiGEhnXQJlXE3cdf0VWDpIOrMlJ7Z8bS AyK7T5JDvtRh3VPQSfPXWfWkOtHGDVNKmeGY7ANQ7vntV3SV8UjVSyUJQdWYEmySSiDPy0K50njNBeRL evIK3ZJGU+Dillon+Hm4KSTEuPNTkFUWeAuNxRJBEVwUfI3QbP4QNt8HqE7ZyMB90lGzhfkJkDUvjXE4NCZ 7pKFRcRXGIAE6TqUWgfE6mcyPzChXiJEKZBfCqK19a pKZtBMGfBRYgAKLgSw4TROItZ8DopoBalFkeksScMXOrKMXTAL2YKJcjnqKkhUOpnJxjMB37rIixPI4F Ii5HNqSeAA3ajo1KaRNsPm4OQZGqYY9AMKMuLWQoLQJmAEP4WNCgCfBmWJltTNGnPPPfQDJ7SRDrURIe TQ6HLzHdPDFzCTu6JKrqVHFmFDCwxj5NHFVwKPKoMM SaAUFqUIPjOZNeCWqlLEIeGXNtYXC9NLJaNYPhBV7WJsFhKPTzSBWyYtthINRtRXMqfd1CVGUtUUXdEy BaNnGkAYEcZCReRIusHLCjBJPzOeblBDWwYZEmWG2IClFqHOGjCPP0FYHaTRPgDMZyij5VEPXqGFYfQo U2QzMeIMYjGSQnOIcyAEAmYZJ6KtT8RPGgRIXgHT3O WdNwNQCkPVW2TvOtPODhLNFhnc5JSRRwHNMoYERwMAPbRFYqXMNgPPxnDQOaNNS0EeE2PQXuNKQwNS0Y YlKpLGRoEJw2VYQlBWFcHQTvhp0EDDQoXPWdStz5OVBgVOKyMFFeRZhhTAVtFGM9LZM1LFUlEYTyRH8L KgKlHYJsMWcjDsHjVGXbZLTvij9RUUNwANRfSNSpCw CzZYLkOKQhBIhmVXFoNHM1IUIhMXLiVMQjLW6BUeXuKIJvYEf0UbKgWZAaSGYipx7WDKUdNNBdRFb5UJ ZkZDRoAVIuMFzeHTTmGOBnSPP0QLMuAQOgPX2TMbOgAYJfZpK6PYTrCHFqZRRqsw8DQPBtXJLcHWQ9TZ KdZADtZCGeBUs3eaFxjOZoGMg6PS9UT9FtaeHgWjME Uj0Eo536WJK3CAXhMu7UH4spUa4eFAPyCTGODs3KDKo0JqimLIGwU2W6AxSyHVGrRMO6PkJjOqJ9UDvr NTNlODk+WCxvNYX2ZvTrYPnbT2R2UnE6OIN7AWDaEJZhE3O8Y8B2HK6kFKTXMp1+DQpzdGFydHhyZWYN LmDuTHw6VPerSRSIKy0M ID Date Data Source [id number] 03/13/2021 05:56:16 PM EDT [facility] Name Value Range Interpretation Code Description Data Stephanie rce(s) Supporting Document(s) Nursing Note [facility] UCWUHs7fWvJVUgRk04/YDFxvFYPyj7OyXPxyURi6GHgyARIpA0VzQAB9oK3kQMM0PQnMHwFiQmMcPDCj lbm [file] 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/VbYra/82JwCB1vgpj5qgJBVgLEE7PCzWex5x5o [file] HtGGtvIGT7K4IbRdP6CfVuBYOaShJ+UZ1jOKb+Eh8Kz1GoseN9btLfVUwiSFI6Ll6VKQEDB0DFZd== ID Date Data Source [id number] 03/13/2021 05:15:24 PM EDT [facility] Name Value Range Interpretation Code Description Data Stephanie rce(s) Supporting Document(s) Nursing Note [facility] ZATZDa3gXeMOCbUv38/OMKcqDHFis2YiMHjuATb2YMhnKGAdE1YoMEG5dV7kFNJ6NRrYUaQpHaRuGNKr lbm [file] FDB4SVN0UmDjJN5MWg6UOqA6NLN3bFFmVo0JKsYxWchPXiRhHN4PEGq= ID Date Data Source [id number] 03/13/2021 05:01:36 PM EDT [facility] Name Value Range Interpretation Code Description Data Stephanie rce(s) Supporting Document(s) Nursing Note [facility] VMYXRc1lVdIITwKf12/FRXzxTERde1MtXXhoVNu3YXfzOEUwW8OjDCP6aL3hPUY7YTsRFnPcHdXcUZLg lbm [file] RyZF5WNNr= ID Date Data Source [id number] 03/13/2021 02:53:46 PM EDT [facility] Name Value Range Interpretation Code Description Data Stephanie rce(s) Supporting Document(s) Nursing Note [facility] GTEORn2iZuUHDrHj25/UKAtlQWHsa7UgVLumXQv7TNuoTUVkJ5GmZCP6yJ0xZNO5VPjIIqAuKzHlDZVq lbm HjKqyPFbVqTNKqPygQUaLpGDqeUsagwFYlME9YkRW8OVDiF36nQGMmMYOrM2QeWWX4FTS+Hm5LCJAymW VzXH7SOstP6E6Ejvr2Jj1huj3Akc+yMSlEFSah2lokV3HcplGRpow9hN8GWDF4Qnf7+Ikes51Asvudls V/ngYxopRNfKAQYNCNfqPRMzCm+e+qYVihBHaF9o/1 z9Bshhq610ufiB3QKl+H7f4Ug+DRO9GX0WhR/5iNue03diWDIsBhAKWiacwGdO7QQG2Hmou3RcxIZNbb F55nbwcy81zVJ6QkC0nbp2WmeQNXcfn2BBIMjH6OFMaa2ifNv0sbaHh4lrWnYi8HH2cR18ibsqi1x4Bp OXzSSN0iG8rcybjiB3jszc7ADgZQLC1jbPd03pRsYD QkLiXoi6iwBDnVnd+PamXVCtoVS0jAfDzY+cxiRDOIZXGdhUDY7zGSHFBPrykPqWVtBSCFj4z6aso5Da Y17TnwvA8hZtRpsq82uM3/9qEhsJLmmXpCexWyd1SjwFFPP/NDmF9mosY5a79MAIM4ExtL3jzcnTSlDG oVWxTnm2tgqd9tXZ6Cf+z3ukR9tAa4Rfoo9ttnr4La U3MZdrkZCF7x5He0dVl3lQzKjecYxtM2mIosu5TnJ/P8ejX/+XsUndp//Nec/Dgc/Kmc68N6aDdXv5eF BckQxAsVkKTZGprWx8GsnS9qZ1oQuIi/mL3gy0cws9cBiy5Cqflcs6L7pOExT9PmMAi1EXNX+Mgtr0Ws cVT9iaFMGbcTnBTvWFX0A0Lu6J8GqzQox55SF3+hardy [file] ICAgICAgICAgICAgICAgICAgICAgICAgICAgICAgICAgICAgICAgICAgICAgICAgICAgICAgICAgICAg ICAgICAgICAgICAgICAgICAgICANCiAgICAgICAgIC AgICAgICAgICAgICAgICAgICAgICAgICAgICAgICAgICAgICAgICAgICAgICAgICAgICAgICAgICAgIC AgICAgICAgICAgICAgICAgICAgICAgICAgICAgICANCiAgICAgICAgICAgICAgICAgICAgICAgICAgIC AgICAgICAgICAgICAgICAgICAgICAgICAgICAgICAg ICAgICAgICAgICAgICAgICAgICAgICAgICAgICAgICAgICAgICAgICANCiAgICAgICAgICAgICAgICAg ICAgICAgICAgICAgICAgICAgICAgICAgICAgICAgICAgICAgICAgICAgICAgICAgICAgICAgICAgICAg ICAgICAgICAgICAgICAgICAgICAgICANCiAgICAgIC AgICAgICAgICAgICAgICAgICAgICAgICAgICAgICAgICAgICAgICAgICAgICAgICAgICAgICAgICAgIC AgICAgICAgICAgICAgICAgICAgICAgICAgICAgICAgICANCiAgICAgICAgICAgICAgICAgICAgICAgIC AgICAgICAgICAgICAgICAgICAgICAgICAgICAgICAg ICAgICAgICAgICAgICAgICAgICAgICAgICAgICAgICAgICAgICAgICAgICANCiAgICAgICAgICAgICAg ICAgICAgICAgICAgICAgICAgICAgICAgICAgICAgICAgICAgICAgICAgICAgICAgICAgICAgICAgICAg ICAgICAgICAgICAgICAgICAgICAgICAgICANCiAgIC AgICAgICAgICAgICAgICAgICAgICAgICAgICAgICAgICAgICAgICAgICAgICAgICAgICAgICAgICAgIC AgICAgICAgICAgICAgICAgICAgICAgICAgICAgICAgICAgICANCiAgICAgICAgICAgICAgICAgICAgIC AgICAgICAgICAgICAgICAgICAgICAgICAgICAgICAg ICAgICAgICAgICAgICAgICAgICAgICAgICAgICAgICAgICAgICAgICAgICAgICANCiAgICAgICAgICAg ICAgICAgICAgICAgICAgICAgICAgICAgICAgICAgICAgICAgICAgICAgICAgICAgICAgICAgICAgICAg ICAgICAgICAgICAgICAgICAgICAgICAgICAgICANCj w/vOXjJ8zwxHXmrpA1G9vrUh6HNk9IYT6uy2RsCZBlHPwuyfVlDzvKNrNyGTOaPuyMLsb4VGnyNE6GvE LrI7PhH3ReHSksQJ2ECRThIQJeeWRgIRDqNSKwEjB3QYZmGGczXU1EhUBqLXozEQIuZUJdDP8LFPEzC5 47kwUdDR5DJp3SEdCtWG7mpk8CYbHoJIAwHmqZDyj5 UAiaTV1SjCHwjZYjWORmILESDkObD7zug2KuFmGjODRJLZyyMA2Lz9DsgSWuJIw+Wl7DZJ7jr0OhVOkj SLClUF6xxk0HJQzQQcZiR8IpwIejNT09ulTpsdywZp21LBRciZBXc6InCcIKQ5T6GQ2uOPHGGCI7EBwx Un7yHNFxROApAjN3ZXMKGD0EKDNjPBCvuLNeIMMfOE SOXC9SXOsgBWR7TeqewqBxmJRjWUdtYH9BDFWwdcTeRkOpJJCWSFc+Df4KSY3bv6IpNSsfFjReNJ7qvl 2AIIqQJeYyA8P2nOEbP2X4IAlwWs5TICBdCLZsSrMwBFUQLKnzWR2HVY5azcA2XF5KiGKgTRThJZRuqR UyMQz1Z43exPIgJJnkEV8NSOO+Dillon+Zx7PACHgLGJu KQEwYtWdLDBBFbAyO7HcT8WVr6ChJ5ZcXF80hKjkosRvJXgcPO7FNQ6nAGCpIIFCEU2MuZLnwK3wpxSs TMHbPKZCOtZgZ22oeXMaGNTiYQUzRAJmUr8GKNMxN0RbgsEriSaxccKjRHGqCXPGYU2ORIjnydXdbYNl wFhnXJ41qNpsJG2DJe0CCcSuYN9hmg0UiGIqGj7CSM FdNg5QLZNqUPXwSJTvDKZ4OUTaHaPjPDouUNUyAJLwRIF6WNRyEVCwUZ6ZJgCuGDDkFtEwLXDhGOAzHF Xtcj9APTHaVFHiMpjmCNEuSAItMUNpNOuePCXvAJUvLHU3QMLyLVAwEH4ECsUsKCLoQYCaCsCkCMZjOG Itwg4ZVSKeIMClGuHfJnCvESAxEFBzPQonZWTgVSW9 Ese4YFNmNYTmVB0MUtQzLHPwKBA9QSXvTSQsAUCcru8XQYGzVKUoGER8JKQcXOVyXJTwKOydREMnSMT3 ZvT2RLJjUYNrQM3KCoObUKNyYEC3FlLlZCThHSAaiz0WCHVwUUPlVoFrEJQrWHJrNDYsTVvvSPMdSCE3 FsP6SKZgFGTaQQ8MVdBkFYVaBZt6HjCcYKJmDURztl 3MUEGkWYVpQUc5DzQwWPOrUSJvRRfhAWAtUVO3OHBbETBqLFZdGT8OPsRgVRZxMJagLucmURIiGXYesx 5IPYNzDRVrXZRiUKQmXSVqNDQiBQthIBScSJVrVwp1PNKnMSPoBT5UCqRwDYNxXqA6UizfUSEsGQYbmy 0DPIDoVMHxTQa5LaAcXKFiOHBjMNloDQXnLYGzWBJo QPEnCWTnDP3LHrCyNJRoWuL9RfbuJKNiAJEahq6DOARxGAYuQsWwQgIbZEXvUUCfPNuwSFIzZTWtGNl2 WYGvEHIhPQ2BViLkMXTvIoSxIpFlMEKyKUBsip8SqAAjeGcxox1GAJzHSa1MoYcyASU1RUflAf3reDSl RmWwRFPDJg1QhuHaKNLtHRVUVChuVTMrRMUrXGXdHV LvDzCfTrYhDbQwXnApWFNgZZCrXUZ8MFD3JuF0NQHnNjVdLRZiQAQzM0UlYyU8MDB8IAIuLMOjOkriXZ Y+AZ5rRBe+Ar8Vo7WswyB8xsEzSOoqIqT8VO0RIIXPT0FPFy== ID Date Data Source [id number] 03/13/2021 02:24:18 PM EDT [facility] Name Value Range Interpretation Code Description Data Stephanie rce(s) Supporting Document(s) Care Plan [facility] DHHAJg2nXfFHEnFk46/CBGqjRJFsx9ImYTjmKUh1EUirGHVkT9DuLGC1gQ4mAXN5HGpWIyHtJrPxKCEj lbm [file] o+6jbQYJUunQYl3K8nb+handle assembler/HIvLLltdtVtdirlIpEr2+4e7nw88ogqYCRNXNoBhRiFaCTyxiDaVgX9z [file] Packing Room Inspector+hWR0xyZj2RVysNk3Ivw6uLxl6n2tZ/IjD8tui2b [file] AgICAgICAgICAgICAgICAgICAgICAgICAgICAgICAg ICAgICAgICAgICAgICAgICAgICAgICAgICAgICAgICAgICAgICAgICAgICANCiAgICAgICAgICAgICAg ICAgICAgICAgICAgICAgICAgICAgICAgICAgICAgICAgICAgICAgICAgICAgICAgICAgICAgICAgICAg ICAgICAgICAgICAgICAgICAgICAgICAgICANCiAgIC AgICAgICAgICAgICAgICAgICAgICAgICAgICAgICAgICAgICAgICAgICAgICAgICAgICAgICAgICAgIC AgICAgICAgICAgICAgICAgICAgICAgICAgICAgICAgICAgICANCiAgICAgICAgICAgICAgICAgICAgIC AgICAgICAgICAgICAgICAgICAgICAgICAgICAgICAg ICAgICAgICAgICAgICAgICAgICAgICAgICAgICAgICAgICAgICAgICAgICAgICANCiAgICAgICAgICAg ICAgICAgICAgICAgICAgICAgICAgICAgICAgICAgICAgICAgICAgICAgICAgICAgICAgICAgICAgICAg ICAgICAgICAgICAgICAgICAgICAgICAgICAgICANCi AgICAgICAgICAgICAgICAgICAgICAgICAgICAgICAgICAgICAgICAgICAgICAgICAgICAgICAgICAgIC AgICAgICAgICAgICAgICAgICAgICAgICAgICAgICAgICAgICAgICANCiAgICAgICAgICAgICAgICAgIC AgICAgICAgICAgICAgICAgICAgICAgICAgICAgICAg ICAgICAgICAgICAgICAgICAgICAgICAgICAgICAgICAgICAgICAgICAgICAgICAgICANCiAgICAgICAg ICAgICAgICAgICAgICAgICAgICAgICAgICAgICAgICAgICAgICAgICAgICAgICAgICAgICAgICAgICAg ICAgICAgICAgICAgICAgICAgICAgICAgICAgICAgIC ANCiAgICAgICAgICAgICAgICAgICAgICAgICAgICAgICAgICAgICAgICAgICAgICAgICAgICAgICAgIC AgICAgICAgICAgICAgICAgICAgICAgICAgICAgICAgICAgICAgICAgICANCiAgICAgICAgICAgICAgIC AgICAgICAgICAgICAgICAgICAgICAgICAgICAgICAg ICAgICAgICAgICAgICAgICAgICAgICAgICAgICAgICAgICAgICAgICAgICAgICAgICAgICANCjw/eHBh U6pkoDPyoxF8J4ntUa9DIz4UQZ0bp7YwJMWdCHwfveFtUqwQHpCmTMIjElxFMbf2VYwzUT8DoMLaV7Gr Z1UgXDryCZ0CBTOvBJFjpFGfTIBkQXStKcC5OFRoGY nmLQ8KfFUlBJmyZXHpYSGmJaAbQOHbID9LWNUgX136hdVhYv4XCs9JHtZiFF3rkr8VItxsGJYaUnpOZi b9YAckHF4GyAErdMExYJMhDUYJZtZmD2gdj2ZjMywnDUCIJZszFN9Wc5UozAMyZZw+Ok6GST7ch3WjMC nhOXWgGC9wrr0AXWrSAsFeS1RcfGueDWZginHqHYnq peZubUTCz6XnZlUBE0F3JV9uFJNAYVM8HGroUc8wHLPbBPWbVxArLGVEBB8HREHqYDRoyGHgETYiRSEZ UL9VMNozAFR8SzzsdhCugATfVPpfTB3ADQRaeaPeUxvcIQKNVEf+Jg0HXR0bm2JgZIetDPCiYL9yxu2E KNxLYyQfJ2C0kEDgV6I2HZmaYa1UTILmTHFaXeWfXH CNIMbwSP1PRW4lraC1DF0YrUMyYUZzVUCuyTUsCKm2W39ztTOmYEuyHB4RHDN+Dillon+Kq0MFWWpSVGxEH QiMuWfYLOYScFaW1FiA4ILz5GsU0InKR50fQkiacZxUJygNW1RLS1gZAIzXMVRUH5HeRDgoP2rjxAqEk SnWTDKBuWfJ50osCNfNEOlOZB2VNWyTb4XRVFsQ3Rw puYheGphpnTkKNZiVIYLWL7OZJroalOovUPqsBqyQS54hQfbDG4RDd3GRxJvEW3weu7StSCsQb3CYJTr AE5IGPXlTJQqMZXrQRU3YETpKxPdFLpwGDEeJFAtMHH6RQToWEBqRZ7ZSdApYSNqPzB2ZEobBAIqSVGn bs3OJTAjJREpPUA0WYGqIINrACOsNOmxCLEiTSErSP X0GRTrFPQmTN0DGvUzFSAhKFV6ANujPMYgNUMzzl2HHLDcWLKgSkhwToBwVKRaEENuMQudYOYwAQD6RG deVLCvFXHaGU2DMzLnIOXsVMUsWJXvKWRvJLYmjs9HHERqJMDeNOK9SANgWKTyJQHdGJlpYQAxTYT9PE Y0ZQIgGORjER9HUzHwXDRjPDG7HUSoWUBuUZQddr4W JTOgGSQrCaIsLIAnKGOmZPBmQKjeUCKwRPL4Rxu5INYkGKUpBJ8ABuGoSBOcDMH3WINjFHYgPSIchx2O CGBdBXFrBQXvWYVwKQBhMSCtYHqrARVhVAK9PtA4ZRTdKIJtSX1UUzTyJRGyLFm1KVVrXIRgNMMhdb3L TBZfYQAbQYH9PGFpOPGdWVOtGXrfLYPwWCKbRkLtTZ ThVZMxRT4HLqTuDESkWkApBAYtDELwWQAolc9YQPWrHVFhUMW3JMElCZQoPXLsDXmxRMAdEUWgTLG9CR AoMCWpHT8UOiZbHRFwMnL0RNhpHLBmECKnkv9RRSErPKFnSxA2NAWzCYFjUPSgFHbaDWBsRKJqNXK3FU BxOKRaWL1AQwZpBYOgEfUvGOJhQWCcJAXswk5QSJSf OFYoYZf3WANqLYWzRWRyLYupAFCaJJA4BIX7UZLdCPJiHX7HIsGtKFHxGbW1NJEnVEWjZINvpk6IrEFt qPzdrc1UOXtCXi1WiGpfRCWdBZlmQr0aqWLwMDCjXDEBTq4BvuFuUVEoZVLDBTggHMNkXACsGuYzWVgl YgCmC8Q1BIi2BPZcIbr8PeMzXab6P4L8HsD6MJOhAT K0BBNxGUTeEPXzIGppLVCiHlA1VtZuKFOwFdV+BJ4wODb+Fo2Hq1RqqhV9bdDbGUyrBXAfWW9MYNEBG8 YNCg== ID Date Data Source [id number] 03/13/2021 02:22:43 PM EDT [facility] Name Value Range Interpretation Code Description Data Stephanie rce(s) Supporting Document(s) Nursing Note [facility] ZTSPTq8oBzXAKvFs07/QJVftLZSpi9PmRGgfZZo0DXhqHTDnW4RkWDN8uN7oLAB9KQoDRhOxSjGzLQYr lbm [file] ID Date Data Source [id number] 03/13/2021 11:15:10 AM EDT [facility] Name Value Range Interpretation Code Description Data Stephanie rce(s) Supporting Document(s) ED Triage Notes [facility] KJLCHz9dGpJOKwHv11/XGHguHCRyl8OfYHfoPOb0OHhqMBQmW0DeDCU4xD2eEBJ8ZFsGGwZyDhUjLTLj lbm [file] AgICAgICAgICAgICAgICAgICAgICAgICAgICAgICAgICAgICAgICAgICAgICAgICAgICAgICAgICAgIC BsYZRuXUGoGGKtTMCgVBOmULWlDYGiBEJsXFBwELVgCBGsQD1RINBoNOYlVBHgPWLmVHPrPRFsVMGaUN AgICAgICAgICAgICAgICAgICAgICAgICAgICAgICAg VWRrOPPyUSIaMCJlVXDqMUZgXGPkAECnXHZsKYOaJBFkOGTfILIwWYKkAAKmEU0ZHFHzUYXfUDPvFUHp ICAgICAgICAgICAgICAgICAgICAgICAgICAgICAgICAgICAgICAgICAgICAgICAgICAgICAgICAgICAg LIDwGUXbISUyRJSzFJBkVASmUNAgNXAjHTQfKY5TTY AgICAgICAgICAgICAgICAgICAgICAgICAgICAgICAgICAgICAgICAgICAgICAgICAgICAgICAgICAgIC PuLDCuQBQfTRFcPWFeSTIkNLXgFFMvUKAeLXGuHWYmCVOsEZFpNE8MAECfCUKiBALkPUVvCIKaPSEyCS AgICAgICAgICAgICAgICAgICAgICAgICAgICAgICAg YSSuKIRlDHSxNUWiQNDoYXLkTNLcRQJyQUOwGXVyMYQuTPAmMGNqBWYzJLLwFRXrVG5YVGCxUUQlMBHf ICAgICAgICAgICAgICAgICAgICAgICAgICAgICAgICAgICAgICAgICAgICAgICAgICAgICAgICAgICAg ICAgICAgICAgICAgICAgICAgICAgICAgICAgICAgIA 0KICAgICAgICAgICAgICAgICAgICAgICAgICAgICAgICAgICAgICAgICAgICAgICAgICAgICAgICAgIC StYOMkLVDuNDAaTYTdHVRbOXCeHAUzQKXdPMFhCFDcTLJpZTTbYQZdDV1UJFJaSTQbLLJpLVEwDRKyWB AgICAgICAgICAgICAgICAgICAgICAgICAgICAgICAg KAQcNVBiEVCrFEJkATVwHXAeVJRhCCWmKRGiILBhLSBfODTkVUMfKCWjZNLzEKQsYIFjMV6CGQGoVAIs ICAgICAgICAgICAgICAgICAgICAgICAgICAgICAgICAgICAgICAgICAgICAgICAgICAgICAgICAgICAg ICAgICAgICAgICAgICAgICAgICAgICAgICAgICAgIC GzJJ7VBRJcOURnMPMsMJXaTENpNTWfAZUcWRUlRSSsPWUdZGMmDKHrDSUgSVRbLYDzMSTtHBNxWLCqDU BpBCKtLFVmSTKyQWLdTHScQPFqPWThOJYbCVIoDSOjAJDrGPYrVDAhDTXaSJ7KQL91eFSup0C2PWFtOJ 0ndyc/Bk5PZGptleWceXBfGF0TSoLdMQ8tfj1DEoTv JN8ire5VKHcGGkMxM2Q4bGIxLCToVDUSUxYyQ03uKSmiAa79XBmpGIJoFzUhAHe3Wn9XOwNbL5nlYEYp AlX8YSUwIaTgKRyvPL5Gg6FheFSzYCn+Dk7MAO1bj5CpRRftHsTpSF3qen4PDNdSSpFjP2BsphJ6JTOl FTBaQq9BUDXiHJOfmSCiRuSiROXNYhGhL4IomA29VR ENCj4+ZXlpnxRrCdjOKlKkHNPwi4FuXTr6SD1TNAUtMBs5nRWzLCCpGNOfFYzqVS9ceIMcTLA4BDUbtG RyGSRhwmE6eE55xASyENHRPVO1KMjaRi4gKQPaOGAsJkCkPTGHQW5GGWLxLYEgmGYbOXPvQDWSWT6ZIA mrIZP0PhfqkqOejZOnQIkjXJ2BOOGjtuXnTgSsTJEL DQo+Xr4PSI3ih6PkNKqeVFRuNW9lxt5HXBzYMcRaU8Q7tWKdC3D9AOmnQa3XXOHbODXoBcSaCORYVTze YU9ADJ4odcS6RL7EaFPwXMFrCXHpsZQaNMu0E93yqVUmBQnqVY7UOGL+Dillon+Ny5EOPRtDBMkUTVdTjNg YLOGByFxT8WgH6KMd8LaC3GxDG11iQcszyRoPKbwOL 0ZCD8cRMBdNRTJRI8TtRRvrZ8lplJoTdBqDHGABjLzE71lcIXdDFNtCXCrHOSuUg8PIQSiC8YcydXlyF tqxlAeVHSjRLQRMO2YTFgfxhWxhATkjXmwZA33yMefZZ1CCj6JTeNdDT6cus4UpQFyIn8KHUKgAI7FAG NoTDUbYDYuSMV8NAZvRcKiLBltOGTjIVRzHBG1IHUr MUUbUO9KPdQdMERpQWk2SxbiDEYfXOEoaq7VEFBaFUQqAZIbQLCzDZYdNKFhQGoyUPUmXJChCZY3SALa WCFtFW6CKxZvLEZzTMZfPSnnLCTrJKOvsf7ZBVSzXZQpBIFcAzIyCUPuKRNyOWoxQEKtJGDgQLRkBPHl XXMeHG5BHwXhOZRrEHM6JkMtIWYlBMAeex6CUJBpYS KdCqc9VrWbAMNlMWKpIOmeSEEzCURrEQS6NXZtPQEmKF8CEpEsRSQkUBOvVPVnKCLjXPFqwf8MQIEcVE WiVBL8UKFqLCNnHSBoQFsePFWxCWI0BcP6VUEjNQOqCY0NQgWyIPFbXEM2HDGpVNQzTNBlqp3OEXNqLU PzRlL2JBDqWTNsJITxACaqWZVlCYM1Rft8LBUsDRFj SY0POkNgUZUnIZn0SWCkJCZqPHHcow6HXRGcSIIqEYQ6PlDfRWQpFRAiFLlyNSPqHLC4YjhzCTDfTHEs GB2DGdWrQUFrAOs5GKPxDRQqUQGjlb9RMMAgFDFdPVV9OVOcLJPlMRLvLVdiLDCfLQFfUfm3YHUdYGQs JN2SWiDeBMDhHhB9ZsKxTNJsCVWchj4XQAHuGCMfHG hgAVWuDVKmYQPkOZw2okEyqZCaFFg7IO1BN8RosdDlXdNIZy9Jm449CUI2MKSbEp8BW9ocLo0dCWRdDB MWVr4FVYz0ZmizEPRhPHJkRsTeRSWuA9W1GlN9ZXQ1KGJsNCO4TiX+QAi0JEZ8WsIgUOQcFoHuDVFrOJ ovCRm6OrrsAGLrLKZ3On1hOLYLMz0+UMigvEDeqAugNDWEWyUmMLT6RDutUOWMSu1T ID Date Data Source [id number] 03/11/2021 08:16:00 PM EDT [facility] Name Value Range Interpretation Code Description Data Stephanie rce(s) Supporting Document(s) SARS coronavirus 2 RNA [Presence] in Res piratory specimen by CORDE[facility] with probe detection NEGATIVE [facility] This lab was ordered by [facility] a nd reported by [facility]. ID Date Data Source [id number] 03/05/2021 09:30:00 PM EDT [facility] Name Value Range Interpretation Code Description Data Stephanie rce(s) Supporting Document(s) Respiratory specimen severe acute respir atory syndrome coronavirus 2 (SARS-CoV-2) RNA Negative (qualifier value) [facility] This lab was ordered by [facility] and reported by . ID Date Data Source [id number] 03/05/2021 10:26:00 PM EDT [facility] First test? UNKNOWNEmployed in healthca re? UNKNOWNSymptomatic per CDC? UNKNOWNIf yes date of onset? 03/05/21Hospitalized? UNKNOWNICU? UNKNOWNResident in congregated care? ex long-term, [facility] YES? UNKNOWN Name Value Range Interpretation Code Description Data Stephanie rce(s) Supporting Document(s) SARS-CoV-2 RNA Negative Normal (applies to non-numeric r esults) [facility] Negative results should be treated as pr [...] Certificate of Accreditation. Factsheets for healthcare providers: https://www.fda.gov/media/889152/download Factsheets for patients: https://www.fda.gov/media/138725/download The ID NOW Instrument is a rapid molecular in vitro diagnostic test utilizing an isothermal nucleic acid amplification technology intended for the qualitative detection of nucleic acid from the SARS-CoV-2 viral RNA. THIS IS A STATE REPORTABLE COMMUNICABLE DISEASE. Manual entry verified by Aysha Andrade 03/05/212224 ID Date Data Source [id number] 03/05/2021 10:15:00 PM EDT [facility] Name Value Range Interpretation Code Description Data Stephanie rce(s) Supporting Document(s) Troponin I 0.000-0.056 Normal (applies to non-numeric resu lts) [facility] ID Date Data Source [id number] 03/05/2021 10:15:00 PM EDT [facility] Name Value Range Interpretation Code Description Data Stephanie rce(s) Supporting Document(s) Acetaminophen 10.0-30.0 Below low normal [facility] ID Date Data Source [id number] 03/05/2021 10:15:00 PM EDT [facility] Name Value Range Interpretation Code Description Data Stephanie rce(s) Supporting Document(s) Magnesium 1.8-2.4 Normal (applies to non-numeric resul ts) [facility] ID Date Data Source [id number] 03/05/2021 10:15:00 PM EDT [facility] Name Value Range Interpretation Code Description Data Stephanie rce(s) Supporting Document(s) Sodium 142 mmol/L 136-145 Normal (applies to non-numeric resul ts) [facility] Potassium 3.5-5.1 Normal (applies to non-numeric resul ts) [facility] Chloride 107 mmol/L 98-107 Normal (applies to non-numeric resul ts) [facility] Carbon Dioxide CO2 21-32 Normal (applies to non-numer ic results) [facility] Anion Gap 5.0-16.0 Normal (applies to non-numeric resul ts) [facility] BUN 17 mg/dL 7-18 Normal (applies to non-numeric results) [facility] Creatinine,Serum 0.7-1.2 Normal (applies to non-numeric results) [facility] GFR >60 Normal (applies to non-numeric results) [facility] Glucose Level 93 mg/dL 60-99 Normal (applies to non-numeric re sults) [facility] Reference range is only applicable when patient is fasting Note the following drug interference: Sulfasalazine Sulfapyridine Can see falsely depressed Can see falsely elevated result with up to 17% results with up to 11% decrease in measurement increase in measurement Recommend patients be collected for this test prior to administration of either drug. Calcium 8.5-10.1 Normal (applies to non-numeric resul ts) [facility] Bilirubin,Total 0.1-1.9 Normal (applies to non-numeric results) [facility] SGOT(AST) 21 U/L 15-37 Normal (applies to non-numeric resul ts) [facility] Note the following drug interference: Sulfasalazine Sulfapyridine Can see falsely depressed Can see falsely elevated result with up to 10% results with up to 10% decrease in measurement increase in measurement Recommend patients be collected for this test prior to administration of either drug. SGPT(ALT) 43 U/L 12-78 Normal (applies to non-numeric resul ts) [facility] Note the following drug interference: Sulfasalazine Sulfapyridine Can see falsely depressed Can see falsely elevated result with up to 29% results with up to 10% decrease in measurement increase in measurement Recommend patients be collected for this test prior to administration of either drug. Alkaline Phosphatase 113 U/L 38-126 Normal (applies to non-num deena results) [facility] can increase Alkaline Phosp le vels up to 2 times the normal adult value. Normal values for children and adolescents are 2 to 3 times the normal adult value. Total Protein 6.0-8.2 Normal (applies to non-numeric re sults) [facility] Albumin Level 3.4-5.0 Normal (applies to non-numeric re sults) [facility] ID Date Data Source [id number] 03/05/2021 10:15:00 PM EDT [facility] Name Value Range Interpretation Code Description Data Stephanie rce(s) Supporting Document(s) Salicylate 2.8-20.0 Below low normal [facility] ospital ID Date Data Source [id number] 03/05/2021 10:14:00 PM EDT [facility] Name Value Range Interpretation Code Description Data Stephanie rce(s) Supporting Document(s) Ethanol Less than 10.0 Normal (applies to non-numeric r esults) [facility] ID Date Data Source [id number] 03/05/2021 09:36:00 PM EDT [facility] Name Value Range Interpretation Code Description Data Stephanie rce(s) Supporting Document(s) White Blood Count 3.5-10.5 Above high normal [facility] Red Blood Count 3.90-5.00 Normal (applies to non-numeric results) [facility] Hemoglobin 12.0-15.5 Normal (applies to non-numeric resul ts) [facility] Hematocrit 34.9-44.5 Normal (applies to non-numeric resul ts) [facility] Mean Corpuscular Volume 81.2-95.1 Normal (applies to non- numeric results) [facility] Mean Corpuscular Hgb 25.6-32.2 Normal (applies to non-num deena results) [facility] Mean Corpuscular Hgb Conc 32.0-36.0 Normal (applies to no n-numeric results) [facility] Red Cell Distribution Width 11.9-15.5 Normal (appli es to non-numeric results) [facility] Platelet Count 258 x10 3/uL 150-450 Normal (applies to non-numeric results) [facility] Mean Platelet Volume 9.4-12.4 Normal (applies to non-num deena results) [facility] Neutrophils% (Auto) 31.0-71.0 Normal (applies to non-nume frank results) [facility] Lymphocytes% (Auto) 20.0-55.0 Normal (applies to non-nume frank results) [facility] Monocytes% (Auto) 4.0-12.0 Normal (applies to non-numeri c results) [facility] Eosinophils% (Auto) 1.0-8.0 Below low normal [facility] Basophils% (Auto) 0.0-2.0 Normal (applies to non-numeri c results) [facility] Immature Granulocytes% (Auto) 0.0-2.0 Normal (alexander lies to non-numeric results) [facility] Neutrophils# (Auto) 1.50-6.20 Above high normal [facility] Lymphocytes# (Auto) 1.20-4.00 Normal (applies to non-nume frank results) [facility] Monocytes# (Auto) 0.00-0.90 Normal (applies to non-numeri c results) [facility] Eosinophils# (Auto) 0.00-0.50 Normal (applies to non-nume frank results) [facility] Basophils# (Auto) 0.00-0.20 Normal (applies to non-numeri c results) [facility] Immature Granulocytes# (Auto) 0.00-7.00 No rmal (applies to non-numeric results) [facility] ID Date Data Source [id number] 03/05/2021 10:00:00 PM [facility] Collected By: Nurse Initials: ayleen wyatt Collected: 1999 Collected By: Nurse Initials: ayleen wyatt Collected: 1999 Collected By: Nurse Initials: ayleen wyatt Collected: 1999 Name Value Range Interpretation Code Description Data Stephanie rce(s) Supporting Document(s) RBC,Urine None Seen [facility] WBC,Urine None Seen [facility] Squamous Cells,Urine None Seen [facility] Amorphous Sediment,Urine None Seen [facility] Bacteria,Urine None Seen [facility] ital ID Date Data Source [id number] [facility]: [facility] Initials: ayleen wyatt Collected: 1999 Collected By: Nurse Initials: ayleen wyatt Collected: 1999 Collected By: Nurse Initials: ayleen wyatt Collected: 1999 Name Value Range Interpretation Code Description Data Stephanie rce(s) Supporting Document(s) Color,Urine Colorl-Dk Y Normal (applies to non-numeric res ults) [facility] Clarity,Urine Clear Normal (applies to non-numeric re sults) [facility] Specific [place],Urine 1.005-1.030 [facility] pH,Urine 5.0-8.0 Normal (applies to non-numeric resul ts) [facility] Protein,Urine Negative [facility] Glucose,Urine Negative Normal (applies to non-numeric re sults) [facility] Ketones,Urine Negative Normal (applies to non-numeric re sults) [facility] Blood,Urine Negative Normal (applies to non-numeric resu lts) [facility] Bilirubin,Urine Negative Normal (applies to non-numeric results) [facility] Urobilinogen,Urine 0.2-1.0 Normal (applies to non-numer ic results) [facility] Leukocyte Esterase,Urine Negative Normal (applies to non -numeric results) [facility] Nitrite,Urine Negative Normal (applies to non-numeric re sults) [facility] ID Date Data Source [id number] 03/05/2021 10:00:00 PM [facility] Collected By: Nurse Initials: ayleen wyatt Collected: 1999 Collected By: Nurse Initials: ayleen wyatt Collected: 1999 Collected By: Nurse Initials: ayleen wyatt Collected: 1999 Name Value Range Interpretation Code Description Data Stephanie rce(s) Supporting Document(s) HCG,Ur Negative Normal (applies to non-numeric results) [facility] ID Date Data Source [id number] 03/05/2021 08:25:00 PM EDT [facility] Name Value Range Interpretation Code Description Data Stpehanie rce(s) Supporting Document(s) UDS Benzodiazepines Screen Negative Normal (applies to n on-numeric results) [facility] UDS Cocaine Screen Negative Normal (applies to non-numer ic results) [facility] UDS Ampetamine Screen Negative Normal (applies to non-nu meric results) [facility] UDS Cannabinoids Screen Negative Normal (applies to non- numeric results) [facility] UDS Opiates Screen Negative Normal (applies to non-numer ic results) [facility] UDS Barbiturates Screen Negative Normal (applies to non- numeric results) [facility] Threshold Levels Benzodiazepine 200 ng/mL Cocaine 300 ng/mL Amphetamines 1000 ng/mL Cannabinoids (THC) 50 ng/mL Opiates 300 ng/mL Barbiturates 200 ng/mL All positive findings are presumptive and unconfirmed. Confirmation of positive results are performed only at request of provider. Unconfirmed results must not be used for non-medical purposes (i.e. preemployment and legal purposes) ID Date Data Source [id number] 03/04/2021 03:33:00 PM EDT [facility] Exam Number: [id number] Reported By: - JEREMIAH PEOPLES MD Signed By: JEREMIAH PEOPLES MD Name Value Range Interpretation Code Description Data Stephanie rce(s) Supporting Document(s) ID Date Data Source [id number] 03/03/2021 08:53:00 PM EDT [facility] Name Value Range Interpretation Code Description Data Stephanie rce(s) Supporting Document(s) LYNL-CrG-1-result [employer] XPERT XPRESS SARS-CO V-2 REALTIME PCR ASSAY HAS EMERGENCY USE AUTHORIZATION (EUA) FROM THE FDA. [facility] This lab was ordered by [facility] and reported by [facility]. ID Date Data Source [id number] 03/03/2021 02:50:00 AM EDT [facility] Name Value Range Interpretation Code Description Data Stephanie rce(s) Supporting Document(s) Respiratory specimen severe acute respir atory syndrome coronavirus 2 (SARS-CoV-2) RNA Negative (qualifier value) [facility] This lab was ordered by geraldinevaleria heaton and reported by . ID Date Data Source [id number] 03/03/2021 03:11:00 AM EDT [facility] First test? UNKNOWNEmployed in healthca re? UNKNOWNSymptomatic per CDC? UNKNOWNHospitalized? UNKNOWNICU? UNKNOWNResident in congregated care? ex long-term, [facility] UNKNOWN? UNKNOWN Name Value Range Interpretation Code Description Data Stephanie rce(s) Supporting Document(s) SARS-CoV-2 RNA Negative Normal (applies to non-numeric r esults) [facility] Negative results should be treated as pr [...] Certificate of Accreditation. Factsheets for healthcare providers: https://www.fda.gov/media/735454/download Factsheets for patients: https://www.fda.gov/media/396191/download The ID NOW Instrument is a rapid molecular in vitro diagnostic test utilizing an isothermal nucleic acid amplification technology intended for the qualitative detection of nucleic acid from the SARS-CoV-2 viral RNA. THIS IS A STATE REPORTABLE COMMUNICABLE DISEASE. Manual entry verified by Marion Thompson 03/03/21 0311 ID Date Data Source [id number] 03/03/2021 02:26:00 AM EDT [facility] Name Value Range Interpretation Code Description Data Stephanie rce(s) Supporting Document(s) UDS Benzodiazepines Screen Negative Normal (applies to n on-numeric results) [facility] UDS Cocaine Screen Negative Normal (applies to non-numer ic results) [facility] UDS Ampetamine Screen Negative Normal (applies to non-nu meric results) [facility] UDS Cannabinoids Screen Negative Normal (applies to non- numeric results) [facility] UDS Opiates Screen Negative Normal (applies to non-numer ic results) [facility] UDS Barbiturates Screen Negative Normal (applies to non- numeric results) [facility] Threshold Levels Benzodiazepine 200 ng/mL Cocaine 300 ng/mL Amphetamines 1000 ng/mL Cannabinoids (THC) 50 ng/mL Opiates 300 ng/mL Barbiturates 200 ng/mL All positive findings are presumptive and unconfirmed. Confirmation of positive results are performed only at request of provider. Unconfirmed results must not be used for non-medical purposes (i.e. preemployment and legal purposes) ID Date Data Source [id number] 03/03/2021 02:21:00 AM EDT [facility] Collected By: Nurse Initials: [place] Time Collected: 157 Collected By: Nurse Initials: [place] Time Collected: 157 Name Value Range Interpretation Code Description Data Stephanie rce(s) Supporting Document(s) Color,Urine Colorl-Dk Y Normal (applies to non-numeric res ults) [facility] Clarity,Urine Clear Normal (applies to non-numeric re sults) [facility] Specific [place],Urine 1.005-1.030 [facility] pH,Urine 5.0-8.0 Normal (applies to non-numeric resul ts) [facility] Protein,Urine Negative Normal (applies to non-numeric re sults) [facility] Glucose,Urine Negative Normal (applies to non-numeric re sults) [facility] Ketones,Urine Negative Normal (applies to non-numeric re sults) [facility] Blood,Urine Negative Normal (applies to non-numeric resu lts) [facility] Bilirubin,Urine Negative Normal (applies to non-numeric results) [facility] Urobilinogen,Urine 0.2-1.0 Normal (applies to non-numer ic results) [facility] Leukocyte Esterase,Urine Negative Normal (applies to non -numeric results) [facility] Nitrite,Urine Negative Normal (applies to non-numeric re sults) [facility] ID Date Data Source [id number] 03/03/2021 02:21:00 AM EDT [facility] Collected By: Nurse Initials: [place] Time Collected: 157 Collected By: Nurse Initials: [place] Time Collected: 015 Name Value Range Interpretation Code Description Data Stephanie rce(s) Supporting Document(s) HCG,Ur Negative Normal (applies to non-numeric results) [facility] ID Date Data Source [id number] 03/03/2021 02:54:00 AM EDT [facility] Name Value Range Interpretation Code Description Data Stephanie rce(s) Supporting Document(s) D-Dimer,Quant 0.19-0.50 Normal (applies to non-numeric re sults) [facility] The negative predictive value for DVT or [...] on anticoagulant therapy. ID Date Data Source [id number] 03/03/2021 01:55:00 AM EDT [facility] Name Value Range Interpretation Code Description Data Stephanie rce(s) Supporting Document(s) Ethanol Less than 10.0 Normal (applies to non-numeric r esults) [facility] ID Date Data Source [id number] 03/03/2021 01:55:00 AM EDT [facility] Name Value Range Interpretation Code Description Data Stephanie rce(s) Supporting Document(s) Acetaminophen 10.0-30.0 Below low normal [facility] ID Date Data Source [id number] 03/03/2021 01:55:00 AM EDT [facility] Name Value Range Interpretation Code Description Data Stephanie rce(s) Supporting Document(s) Sodium 143 mmol/L 136-145 Normal (applies to non-numeric resul ts) [facility] Potassium 3.5-5.1 Normal (applies to non-numeric resul ts) [facility] Chloride 107 mmol/L 98-107 Normal (applies to non-numeric resul ts) [facility] Carbon Dioxide CO2 21-32 Normal (applies to non-numer ic results) [facility] Anion Gap 5.0-16.0 Normal (applies to non-numeric resul ts) [facility] BUN 20 mg/dL 7-18 Above high normal [facility] Creatinine,Serum 0.7-1.2 Normal (applies to non-numeric results) [facility] GFR >60 Normal (applies to non-numeric results) [facility] Glucose Level 101 mg/dL 60-99 Above high normal [facility] Reference range is only applicable when patient is fasting Note the following drug interference: Sulfasalazine Sulfapyridine Can see falsely depressed Can see falsely elevated result with up to 17% results with up to 11% decrease in measurement increase in measurement Recommend patients be collected for this test prior to administration of either drug. Calcium 8.5-10.1 Normal (applies to non-numeric resul ts) [facility] Bilirubin,Total 0.1-1.9 Normal (applies to non-numeric results) [facility] SGOT(AST) 22 U/L 15-37 Normal (applies to non-numeric resul ts) [facility] Note the following drug interference: Sulfasalazine Sulfapyridine Can see falsely depressed Can see falsely elevated result with up to 10% results with up to 10% decrease in measurement increase in measurement Recommend patients be collected for this test prior to administration of either drug. SGPT(ALT) 44 U/L 12-78 Normal (applies to non-numeric resul ts) [facility] Note the following drug interference: Sulfasalazine Sulfapyridine Can see falsely depressed Can see falsely elevated result with up to 29% results with up to 10% decrease in measurement increase in measurement Recommend patients be collected for this test prior to administration of either drug. Alkaline Phosphatase 116 U/L 38-126 Normal (applies to non-num deena results) [facility] can increase Alkaline Phosp le vels up to 2 times the normal adult value. Normal values for children and adolescents are 2 to 3 times the normal adult value. Total Protein 6.0-8.2 Normal (applies to non-numeric re sults) [facility] Albumin Level 3.4-5.0 Normal (applies to non-numeric re sults) [facility] ID Date Data Source [id number] 03/03/2021 01:55:00 AM EDT [facility] Name Value Range Interpretation Code Description Data Stephanie rce(s) Supporting Document(s) Salicylate 2.8-20.0 Below low normal [facility] ID Date Data Source [id number] 03/03/2021 01:55:00 AM EDT [facility] Name Value Range Interpretation Code Description Data Stephanie rce(s) Supporting Document(s) Magnesium 1.8-2.4 Normal (applies to non-numeric resul ts) [facility] ID Date Data Source [id number] 03/03/2021 01:55:00 AM EDT [facility] Name Value Range Interpretation Code Description Data Stephanie rce(s) Supporting Document(s) Troponin I 0.000-0.056 Normal (applies to non-numeric resu lts) [facility] ID Date Data Source [id number] [facility] Value Range Interpretation Code Description Data Stephanie rce(s) Supporting Document(s) White Blood Count 3.5-10.5 Above high normal [facility] Red Blood Count 3.90-5.00 Normal (applies to non-numeric results) [facility] Hemoglobin 12.0-15.5 Normal (applies to non-numeric resul ts) [facility] Hematocrit 34.9-44.5 Normal (applies to non-numeric resul ts) [facility] Mean Corpuscular Volume 81.2-95.1 Normal (applies to non- numeric results) [facility] Mean Corpuscular Hgb 25.6-32.2 Normal (applies to non-num deena results) [facility] Mean Corpuscular Hgb Conc 32.0-36.0 Normal (applies to no n-numeric results) [facility] Red Cell Distribution Width 11.9-15.5 Normal (appli es to non-numeric results) [facility] Platelet Count 274 x10 3/uL 150-450 Normal (applies to non-numeric results) [facility] Mean Platelet Volume 9.4-12.4 Below low normal [facility] Neutrophils% (Auto) 31.0-71.0 Normal (applies to non-nume frank results) [facility] Lymphocytes% (Auto) 20.0-55.0 Normal (applies to non-nume frank results) [facility] Monocytes% (Auto) 4.0-12.0 Normal (applies to non-numeri c results) [facility] Eosinophils% (Auto) 1.0-8.0 Below low normal [facility] Basophils% (Auto) 0.0-2.0 Normal (applies to non-numeri c results) [facility] Immature Granulocytes% (Auto) 0.0-2.0 Normal (alexander lies to non-numeric results) [facility] Neutrophils# (Auto) 1.50-6.20 Above high normal [facility] Lymphocytes# (Auto) 1.20-4.00 Normal (applies to non-nume frank results) [facility] Monocytes# (Auto) 0.00-0.90 Normal (applies to non-numeri c results) [facility] Eosinophils# (Auto) 0.00-0.50 Normal (applies to non-nume frank results) [facility] Basophils# (Auto) 0.00-0.20 Normal (applies to non-numeri c results) [facility] Immature Granulocytes# (Auto) 0.00-7.00 No rmal (applies to non-numeric results) [facility] ID Date Data Source [id number] 03/02/2021 11:08:00 AM EDT [address] HEALTH CONSULTPATIENT NAME: YARELI HATCH MR#: [id number] PHYSICIAN:AUTHOR: Colleen SMITH,[facility] DATE: RM#: ERPATIENT : 00HistoryHistory of Presenting IllnessPatient is 20-year-old female, currently single, lives at [facility], pastpsych history of borderline personality disorder, depression [...] And she wanted to be discharged backto [facility]. However upon asking how she is going to deal with the situationoutside where patient stated that she feels comfortable talking and having ameeting with [facility] staff tomorrow and try to solve the situation as well. Shestated that she was not suicidal, she wants to go back to [facility] and get some rest, she was also [...] rce(s) Supporting Document(s) ID Date Data Source [id number] 03/02/2021 04:06:00 AM EDT [facility] Name Value Range Interpretation Code Description Data Stephanie rce(s) Supporting Document(s) SALICYLATE < 1.7 mg/dL 0.0-20.0 [facility] ID Date Data Source [id number] 03/02/2021 04:06:00 AM EDT [facility] Name Value Range Interpretation Code Description Data Stephanie rce(s) Supporting Document(s) ACETAMINOPHEN < 2.0 ug/mL 0-30 [facility] Date Data Source [id number] 03/02/2021 04:06:00 [facility] Name Value Range Interpretation Code Description Data Stephanie rce(s) Supporting Document(s) ETOH NONE DETECTED [facility] NONE DETECTED ID Date Data Source [id number] 03/02/2021 04:06:00 AM EDT [facility] Name Value Range Interpretation Code Description Data Stephanie rce(s) Supporting Document(s) GLU 120 mg/dL 70-110 [facility] Patients taking Sulfasalazine may have f alsely depressedGlucose levels. Patients taking Sulfapyridine may havefalsely elevated Glucose levels. Patients should be drawnfor Glucose before the initial administration of eitherdrug. BUN 16 mg/dL 7-23 [facility] CRE 0.685 mg/dL 0.500-1.300 [facility] GFR > 60 mL/min [facility] CHLORIDE 111 mmol/L 99-110 [facility] NA 141 mmol/L 136-147 [facility] POTASSIUM 3.6 mmol/L 3.5-5.1 [facility] TCO2 18 mmol/L 20-33 [facility] ANION GAP 15.6 10.0-20.0 [facility] CA 8.5 mg/dL 8.3-10.7 [facility] ALKALINE PHOS 118 U/L 45-117 [facility] TP 7.5 g/dL 6.0-7.8 [facility] ALB 3.7 g/dL 3.5-5.0 [facility] ESRD Dialysis patient Albumin reference range: 2.9-4.4 g/dL GL 3.8 g/dL 2.3-3.5 [facility] A/G 1.0 1.0-2.5 [facility] T. BILIRUBIN 0.2 mg/dL 0.1-1.1 [facility] [place] Total Bilirubin is n ot recommended forpatients undergoing treatment with eltrombopag (Promacta)due to the potential for falsely elevated results. ALTI 43 U/L 6-54 [facility] Patients taking Sulfasalazine and/or Sul fapyridine may havefalsely depressed ALT levels. Patients should be drawn forALT before the initial administration of either drug. AST 21 U/L 6-38 [facility] Patients taking Sulfasalazine and/or Sul fapyridine may havefalsely depressed AST levels. Patients should be drawn forAST before the initial administration of either drug. ID Date Data Source [id number] 03/02/2021 03:12:00 AM EDT [facility] Name Value Range Interpretation Code Description Data Stephanie rce(s) Supporting Document(s) WBC 9.90 x10E3/uL 4.0-10.5 [facility] RBC 4.15 x10E6/uL 4.20-5.40 [facility] Hemoglobin 12.4 g/dL 12.0-16.0 [facility] Hematocrit 37.0 % 37.0-47.0 [facility] MCV 89.2 fL 81.0-99.0 [facility] MCH 29.9 pg 27.0-31.0 [facility] MCHC 33.5 g/dL 32.7-35.6 [facility] RDW 12.4 % 11.5-14.0 [facility] Platelet count 243 x10E3/uL 150-450 [facility] ital MPV 9.9 fl 6.9-9.5 [facility] Neutrophils 61.6 % 34-64 [facility] Lymphocytes 29.1 % 25-45 [facility] Monocytes 7.2 % 1.7-10.6 [facility] Eosinophils 1.3 % 0.4-7.0 [facility] Basophils 0.3 % 0.1-2.0 [facility] Imm. Gran. 0.5 % 0.1-2.0 [facility] Abs. Neutro. 6.10 x10E3/uL 1.2-7.6 [facility] Abs. Lymph. 2.88 x10E3/uL 1.0-3.5 [facility] Abs. [place]. 0.71 x10E3/uL 0.1-1.0 [facility] Abs. Eosin. 0.13 x10E3/uL 0.1-0.7 [facility] Abs. Baso. 0.03 x10E3/uL 0.0-0.1 [facility] Abs. Imm. Gran. 0.05 x10E3/uL 0.0-0.1 [facility] spital ANRBC% 0 % 0 [facility] ID Date Data Source [id number] 03/02/2021 03:28:00 AM EDT [facility] Name Value Range Interpretation Code Description Data Stephanie rce(s) Supporting Document(s) PCP VISTA NEG NEGATIVE [facility] MINIMUM LEVEL OF DETECTION IS 25 ng/ml BENZODIAZEPINES NEG NEGATIVE [facility] MINIMUM LEVEL OF DETECTION IS 200 ng/ml COCAINE VISTA NEG NEGATIVE [facility] MINIMUM LEVEL OF DETECTION IS 300 ng/ml AMPHETAMINES NEG NEGATIVE [facility] MINIMUM LEVEL OF DETECTION IS 1000 ng/ml BARBITURATES NEG NEGATIVE [facility] CUTOFF CONCENTRATION IS 200 ng/ml CANNABINOIDS NEG NEGATIVE [facility] CUTOFF CONCENTRATION IS 50 ng/ml METHADONE VISTA NEG NEGATIVE [facility] MINIMUM LEVEL OF DETECTION IS 300 ng/ml OPIATE VISTA NEG NEGATIVE [facility] MINIMUM DETECTION LEVEL IS 300 ng/ml ID Date Data Source [id number] 03/02/2021 03:15:00 AM EDT [facility] Name Value Range Interpretation Code Description Data Stephanie rce(s) Supporting Document(s) HCG QUAL URINE Negative Negative [facility] ID Date Data Source [id number] 03/02/2021 03:15:00 AM EDT [facility] Name Value Range Interpretation Code Description Data Stephanie rce(s) Supporting Document(s) URINE COLOR Yellow [facility] UAPR Cloudy [facility] UGLU Negative NEGATIVE [facility] URINE BILIRUBIN Negative NEGATIVE [facility] UKET Trace NEGATIVE [facility] USG 1.028 1.010-1.025 [facility] UBLO Negative NEGATIVE [facility] UpH 5.0 5.0-8.0 [facility] UPRO Negative Negative [facility] UUB 1.0 mg/dL 0.2-1.0 [facility] UNIT Negative Negative [facility] ULEU Negative Negative [facility] ID Date Data Source [id number] 03/02/2021 11:27:00 AM EDT [facility] Physician DocumentationClaxton-Naveen Hinkle edical CenterName: Yareli DuvallAge: 20 yrsSex: FemaleDOB: 2000MRN: [id number] Date: 03/02/2021Time: 02:30Account#: [id number] MD: NONE, - Per PatientED Physician Nils ArguetaDisposition Summary:03/02/21 11:12Discharge OrderedLocation: Home Self Care afProblem: an ongoing problem afSymptoms: are unchanged afCondition: Stable afDiagnosis- Adjustment disorder, unspecified afFollowup: af- With: Private Physician- When: 1 week- Reason: Recheck today's complaintsDischarge Instructions:- ADJUSTMENT DISORDER af- Discharge Summary Sheet [id number]:- Medication Reconciliation af- Medication Reconciliation Form - 2nd Copy afHPI:02/2202:50 This 20 yrs old White Female presents to ER via Police with ah2vgejtfogfp of Psych Problem.02:50 Associated signs and symptoms: Pertinent negatives: abdominal pain, ct5yuiti pain, fever, headache, nausea, shortness of breath, [...] denies any other problems or any other complaints..BROWNFIELD PROGRAM COORDINATOR:02:35 LMP N/A - Irregular menses fl2Fdtxpscjmn:- Allergies: Haldol; Risperdal;- Home Meds:1. ibuprofen 400 [...] Temp 97.7; Pulse Ox 96% ; Weight ex7414.33 kg; Height 5 ft. 7 in. (170.18 cm);11:27 BP 124 / 76; Pulse 88; Resp 20; Temp 98; Pulse Ox 98% on R/A; fbg02:35 Body Mass Index 36.02 (104.33 kg, 170.18 cm) jw5MDM:02:40 Patient medically screened. th406:41 Data reviewed: vital signs, nurses notes, lab test result(s). ED mj3auhtqv: Patient remained stable in the ER. Patient here for mentalhealth evaluation as above. Case is endorsed to Dr. Rica oliver of shift pending PSA evaluation and disposition. Patient ismedically clear and has been cooperative..02/2202:38 Order name: Acetaminophen Level; Complete Time: :38 Order name: CBC with diff; Complete Time: :: Order name: CMP; Complete Time: 05::38 Order name: ETOH; Complete Time: ::38 Order name: Glucose : Order name: Salicylate Level; Complete Time: :: Order name: Triage - Drug Screen; Complete Time: 05:: Order name: UA; Complete Time: :: Order name: Urine HCG Qualitative; Complete Time: ::38 Order name: Diet - Mental Health Tray (call dietary); Complete Time: jw504:[id number]/2202:38 Order name: Belongings List :38 Order name: Document Weight and Height for BMI; Complete Time: 04:50 :38 Order name: Mental Health Evaluation :38 Order name: Mental Health Level 3; Complete Time: 04:50 :38 Order name: VS q shift; Complete Time: 04:50 :28 Order name: Medically Cleared for Eval by-Psychosocial, Motivational Speaker th4(.PSA); Complete Time: 07:27Dispensed Medications:No medications were administeredSignatures:Dispatcher [employer] Anshul Loving MD MD afHowland, MD ASRAH Ramirez jf5SxxtrFortunato hupmhrey RN RN ax2KefzlRatna RN RN kk3 Name Value Range Interpretation Code Description Data Stephanie rce(s) Supporting Document(s) ID Date Data Source [id number] 03/02/2021 11:27:00 AM EDT [facility] Nurse's NotesClaxVA [facility] Medical Tootie terName: Yareli DuvallAge: 20 yrsSex: FemaleDOB: 2000MRN: [id number] Date: 03/02/2021Time: 02:30Account#: [id number] MD: NONE, - Per PatientDiagnosis: Adjustment disorder, unspecifiedPresentation:02/2202:32 Presenting complaint: Patient brought in by [employer] officer Noel Huerta for [address] health evaluation for suicidal thoughts. International TravelFever No. Coronavirus Screening: Have you been diagnosed withCOVID-19 in the past 30 days? no [facility] no Flu-like symptoms reported in the last 14 days: no.Have you had close contact with confirmed or suspected COVID-19 case?no Do you live in a setting where a large of amount of people live,such as long-term, family care, nursing home, etc? no. Have you traveledto a location with widespread or ongoing COVID-19 community spread [facility]? no Have you traveled internationally or hadcontact with someone that has traveled and has been ill in the past 3weeks? no Have you received the COVID vaccine? Yes. CommunicableDisease Screen: Negative for fever>/= 100 degrees Fahrenheit.Communicable disease screen is negative. (-) rash or unusual skinlesion (-) travel/contact with traveler (-) respiratory symptoms.Communication Speaks [place] Citizen? Yes, is preferred language.02:32 Acuity: Triage 2 jw502:32 Method Of Arrival: Police jw502:34 Acuity Assignment: Triage 2 yq8Ddegpp Assessment:02:34 Sepsis Screening: (1)Signs/symptoms infection Sepsis is not tm9jaxxdorws. Pain: Denies pain. PSS-3 Now I'm going [...] noted. : No deficits noted. Musculoskeletal: Nodeficits noted.BROWNFIELD PROGRAM COORDINATOR:02:35 LMP N/A - Irregular menses yj8Orvwhvjfqz:- Allergies: Haldol; Risperdal;- Home Meds:1. ibuprofen 400 [...] threats or abuse. Denies injuries from another. im8Oaqmhxzzwtl screening: No deficits noted. Offer of HIV [...] in no apparent distress at this time. uz0Jhxrofj is asleep.06:12 Reassessment: Patient appears in no apparent distress at this time. jy2Lijootlxkdmy:10:54 SAFE Act Report Not Completed. Intervention: Observation Level 3. [address] health consult is initiated at 10:10. Referral Information:Evaluation referral is generated by the patient himself / herself.The patient was referred for evaluation because Suicidal Ideation.10:57 Subjective: The patients chief complaint is SI. Patient is a 20 y/o bq4iyfjd female who was discharged from the inpatient [...] / Agency: [facility] Walk-In appointment in [place] on Wednesday.. LivingEnvironment:. Patient presents to Emergency [...] of patients status at 11:05, Mental Health AIR CARGO SPECIALIST SUPERVISOR made awareof pt status at 11:05. Disposition: The patient has a safedestination which is Patient is being discharged back to [facility]. DSM-V DX [place] I diagnosis: Adjustment D/O w mixedemotion, conduct. The patient is not a sales and service advisor or militarydependent. [place] Suicide Severity Rating Scale: Suicidal IdeationRating 0; Intensity of Ideations Rating 0; Suicidal Behavior Rating 0.Psych:02:37 Subjective: Patient's mood is sad, Delusions are denied, zz1Udgmubmebwnmpt are denied Having thoughts of suicide. Denies [...] Temp 97.7; Pulse Ox 96% ; Weight sf7354.33 kg; Height 5 ft. 7 in. (170.18 [...] armband on for positive identification. Placed in dj3vkps. Bed in low position. Side rails up [...] Nurse role handed off by Ratna Barbosa, RN kk307:45 Diet: Patient given regular meal. fbg09:36 Appears to be sleeping. fbg10:33 Appears angry. Awaiting disposition. fbg11:27 No Physician assisted procedures completed. fbgAdministered Medications:No medications were administeredOutcome:11:12 Discharge ordered by . af11:27 Disposition: Discharged to home ambulatory. fbg11:27 Condition: jinpzyvqo16:27 Discharge instructions given to patient, Instructed on dischargeinstructions, follow up and referral plans. medication usage.11:27 Discharge Assessment: Patient awake, alert and oriented x 3. Nocognitive and/or functional deficits noted. Patient verbalizedunderstanding of disposition instructions. Patient verbalizedunderstanding of disposition instructions. Patient has no functionaldeficits.11:27 Patient left the ED. fbgSignatures:Vincenzo Luis, RN RN fbgFedAnshul fuentes MD MD afStickles, Robert, PSA PSA ml9HoqeslwNils Argueta MD MD om6LwzhkFortunato humphrey, RN RN ce6TraqbRatna mccallum, RN RN om4Xbmjwkoskdk: (The following items were deleted from the chart)11:06 10:54 Referral Information: Evaluation referral is generated by the ru0kjxtfow himself / herself. rs2 Name Value Range Interpretation Code Description Data Stephanie rce(s) Supporting Document(s) ID Date Data Source [id number] 03/01/2021 11:36:00 AM EDT [facility] [address] CONSULTPATIENT NAME: YARELI HATCH MR#: [id number] PHYSICIAN:AUTHOR: Kary Gray NP DATE: #: ERPATIENT : 00HistoryHistory of Presenting IllnessPatient is 20-year-old female, currently lives at [facility], past psychhistory of mood disorder, borderline personality [...] stated that she has a friend from [place] that she talksand that friend treats her [...] rce(s) Supporting Document(s) ID Date Data Source [id number] 03/01/2021 08:18:00 AM EDT [facility] Name Value Range Interpretation Code Description Data Stephanie rce(s) Supporting Document(s) LCOVID-19, CORDELL NEGATIVE [facility] This lab was ordered by [facility] and reported by [facility]. ID Date Data Source [id number] 03/01/2021 08:55:00 AM EDT [facility] Name Value Range Interpretation Code Description Data Stephanie rce(s) Supporting Document(s) COVID-19, CORDELL NEGATIVE NEGATIVE [facility] Methodology: Isothermal Nucleic Acid Amp lification [...] Emergency Use Authorization. ID Date Data Source [id number] 02/28/2021 10:15:00 PM EDT [facility] Name Value Range Interpretation Code Description Data Stephanie rce(s) Supporting Document(s) PCP VISTA NEG NEGATIVE [facility] MINIMUM LEVEL OF DETECTION IS 25 ng/ml BENZODIAZEPINES NEG NEGATIVE [facility] MINIMUM LEVEL OF DETECTION IS 200 ng/ml COCAINE VISTA NEG NEGATIVE [facility] MINIMUM LEVEL OF DETECTION IS 300 ng/ml AMPHETAMINES NEG NEGATIVE [facility] MINIMUM LEVEL OF DETECTION IS 1000 ng/ml BARBITURATES NEG NEGATIVE [facility] al CUTOFF CONCENTRATION IS 200 ng/ml CANNABINOIDS NEG NEGATIVE [facility] CUTOFF CONCENTRATION IS 50 ng/ml METHADONE VISTA NEG NEGATIVE [facility] MINIMUM LEVEL OF DETECTION IS 300 ng/ml OPIATE VISTA NEG NEGATIVE [facility] MINIMUM DETECTION LEVEL IS 300 ng/ml ID Date Data Source [id number] 02/28/2021 09:59:00 PM EDT [facility] Name Value Range Interpretation Code Description Data Stephanie rce(s) Supporting Document(s) URINE COLOR Yellow [facility] UAPR Clear [facility] UGLU Negative NEGATIVE [facility] URINE BILIRUBIN Negative NEGATIVE [facility] al UKET Trace NEGATIVE [facility] USG 1.028 1.010-1.025 [facility] UBLO Negative NEGATIVE [facility] UpH 6.0 5.0-8.0 [facility] UPRO Negative Negative [facility] UUB 1.0 mg/dL 0.2-1.0 [facility] UNIT Negative Negative [facility] ULEU Negative Negative [facility] ID Date Data Source [id number] 02/28/2021 09:59:00 PM EDT [facility] Name Value Range Interpretation Code Description Data Stephanie rce(s) Supporting Document(s) HCG QUAL URINE Negative Negative [facility] ID Date Data Source [id number] 02/28/2021 10:15:00 PM EDT [facility] Name Value Range Interpretation Code Description Data Stephanie rce(s) Supporting Document(s) SALICYLATE < 1.7 mg/dL 0.0-20.0 [facility] ID Date Data Source [id number] 02/28/2021 10:15:00 PM EDT [facility] Name Value Range Interpretation Code Description Data Stephanie rce(s) Supporting Document(s) ACETAMINOPHEN < 2.0 ug/mL 0-30 [facility] ID Date Data Source [id number] 02/28/2021 10:15:00 PM EDT [facility] Name Value Range Interpretation Code Description Data Stephanie rce(s) Supporting Document(s) ETOH NONE DETECTED [facility] NONE DETECTED ID Date Data Source [id number] 02/28/2021 10:15:00 PM EDT [facility] Name Value Range Interpretation Code Description Data Stephanie rce(s) Supporting Document(s) GLU 98 mg/dL 70-110 [facility] Patients taking Sulfasalazine may have f alsely depressedGlucose levels. Patients taking Sulfapyridine may havefalsely elevated Glucose levels. Patients should be drawnfor Glucose before the initial administration of eitherdrug. BUN 14 mg/dL 7-23 [facility] CRE 0.645 mg/dL 0.500-1.300 [facility] GFR > 60 mL/min [facility] CHLORIDE 109 mmol/L 99-110 [facility] NA 140 mmol/L 136-147 [facility] POTASSIUM 3.6 mmol/L 3.5-5.1 [facility] TCO2 22 mmol/L 20-33 [facility] ANION GAP 12.6 10.0-20.0 [facility] CA 8.6 mg/dL 8.3-10.7 [facility] ALKALINE PHOS 114 U/L 45-117 [facility] TP 7.3 g/dL 6.0-7.8 [facility] ALB 3.6 g/dL 3.5-5.0 [facility] ESRD Dialysis patient Albumin reference range: 2.9-4.4 g/dL GL 3.7 g/dL 2.3-3.5 [facility] A/G 1.0 1.0-2.5 [facility] T. BILIRUBIN 0.3 mg/dL 0.1-1.1 [facility] [place] Total Bilirubin is n ot recommended forpatients undergoing treatment with eltrombopag (Promacta)due to the potential for falsely elevated results. ALTI 44 U/L 6-54 [facility] Patients taking Sulfasalazine and/or Sul fapyridine may havefalsely depressed ALT levels. Patients should be drawn forALT before the initial administration of either drug. AST 18 U/L 6-38 [facility] Patients taking Sulfasalazine and/or Sul fapyridine may havefalsely depressed AST levels. Patients should be drawn forAST before the initial administration of either drug. ID Date Data Source [id number] 02/28/2021 10:03:00 PM EDT [facility] Name Value Range Interpretation Code Description Data Stephanie rce(s) Supporting Document(s) WBC 10.31 x10E3/uL 4.0-10.5 [facility] l RBC 4.19 x10E6/uL 4.20-5.40 [facility] Hemoglobin 12.3 g/dL 12.0-16.0 [facility] Hematocrit 37.1 % 37.0-47.0 [facility] MCV 88.5 fL 81.0-99.0 [facility] MCH 29.4 pg 27.0-31.0 [facility] MCHC 33.2 g/dL 32.7-35.6 [facility] RDW 12.2 % 11.5-14.0 [facility] Platelet count 274 x10E3/uL 150-450 [facility] MPV 9.7 fl 6.9-9.5 [facility] Neutrophils 60.8 % 34-64 [facility] Lymphocytes 29.1 % 25-45 [facility] Monocytes 8.0 % 1.7-10.6 [facility] Eosinophils 1.4 % 0.4-7.0 [facility] Basophils 0.2 % 0.1-2.0 [facility] Imm. Gran. 0.5 % 0.1-2.0 [facility] Abs. Neutro. 6.28 x10E3/uL 1.2-7.6 [facility] Abs. Lymph. 3.00 x10E3/uL 1.0-3.5 [facility] Abs. [place]. 0.82 x10E3/uL 0.1-1.0 [facility] Abs. Eosin. 0.14 x10E3/uL 0.1-0.7 [facility] Abs. Baso. 0.02 x10E3/uL 0.0-0.1 [facility] Abs. Imm. Gran. 0.05 x10E3/uL 0.0-0.1 N [facility] spital ANRBC% 0 % 0 [facility] ID Date Data Source [id number] 03/01/2021 12:39:00 PM EDT [facility] Physician DocumentationClaxton-Naveen Hinkle edical CenterName: Yareli DuvallAge: 20 yrsSex: FemaleDOB: 2000MRN: [id number] Date: 02/28/2021Time: 21:08Account#: [id number] MD: NONE, - Per PatientED Physician Nils ArguetaDiszach Summary:03/01/21 11:57Discharge OrderedLocation: Home Self Care afProblem: an ongoing problem afSymptoms: are unchanged afCondition: Stable afDiagnosis- Bipolar disorder, unspecified afFollowup: af- With: Private Physician- When: 1 week- Reason: Recheck today's complaintsDischarge Instructions:- BIPOLAR DISORDER af- Discharge Summary Sheet li90Vfsqk:- Medication Reconciliation af- Medication Reconciliation Form - 2nd Copy afHPI:02/2021:26 This 20 yrs old White Female presents to ER via Police with yp7tyitpmtagp of Psych Problem.21:26 Associated signs and symptoms: Pertinent negatives: abdominal pain, vi8ojhpt pain, fever, headache, nausea, shortness of breath, [...] Temp 97.8; Pulse Ox 97% ; Weight wv6855.95 kg; Height 5 ft. 6 in. (167.64 cm);22:59 BP 120 / 64; Pulse 75; Resp 16; Pulse Ox 97% ; jw508/2112:37 ml408/2020:15 Body Mass Index 38.41 (107.95 kg, 167.64 cm) jw512:37 refused vitals ml4MDM:02/2021:11 Patient medically screened. th408/6:53 Data reviewed: vital signs, nurses notes, lab test result(s). ED nr2qshgzb: Patient remained stable in the ER. Patient here for mentalhealth evaluation as above. Case is endorsed to Dr. Rica oliver of shift pending PSA evaluation disposition. Patient ismedically clear and has been cooperative..02/2021:18 Order name: Acetaminophen Level; Complete Time: 22::18 Order name: CBC with diff; Complete Time: 22:15 :18 Order name: CMP; Complete Time: :15 :18 Order name: ETOH; Complete Time: :15 [...] name: Medically Cleared for Eval by- Psychosocial, Motivational Speaker th4(.PSA); Complete Time: 04::17 Order name: EKG in Patient's Room; Complete Time: 08:31 :17 Order name: EKG.; Complete Time: 08:31 fbgDispensed Medications:02/2023:22 Drug: Latuda 80 mg Route: PO; sc308/2099:22 Follow up: Response: No adverse reaction sc:22 Drug: Prazosin 1 mg Route: PO; sc:43 Follow up: Response: No adverse reaction sc:22 Drug: Propranolol 10 mg Route: PO; sc:22 Follow up: Response: No adverse reaction sc:22 Drug: pravastatin Sodium 20 mg Route: PO; sc:32 Follow up: Response: No adverse reaction sc307:06 Drug: Acetaminophen 650 mg [acetaminophen 325 mg tablet (2 tabs)] mk4Trwmg: PO;09:45 Drug: Propranolol 10 mg [propranolol 10 mg tablet (1 tabs)] Route: PO;fbg09:46 Drug: sertraline 150 mg [sertraline 50 mg tablet (3 tabs)] Route: PO; fbg09:46 Drug: Topiramate 75 mg [topiramate 25 mg tablet (3 tabs)] Route: PO; fbgSignatures:Dispatcher [employer] Vincenzo Acosta, JOSE LUIS RN fbgFedoroAnshul casillas MD MD afHowland, Todd, MD MD yy6OysrwFortunato humphrey RN RN bh2OwzgvwehGeno RN RN sc3 Name Value Range Interpretation Code Description Data Stephanie rce(s) Supporting Document(s) ID Date Data Source [id number] 03/01/2021 12:39:00 PM EDT [facility] NotesCla[facility] terName: Yareli DuvallAge: 20 yrsSex: FemaleDOB: 2000MRN: [id number] Date: 02/28/2021Time: 21:08Account#: [id number] MD: NONE, - Per PatientDiagnosis: Bipolar disorder, unspecifiedPresentation:02/2021:09 Presenting complaint: Patient brought in by GPGonzalo Huerta after doing jw5a wellness check and [...] of amount of people live, such as long-term, familycare, nursing home, etc? no. Have you traveled to a location with widespreador ongoing COVID-19 community spread or outside of [facility]? no Haveyou traveled internationally or had contact with someone that hastraveled and has been ill in the past 3 weeks? no Have you receivedthe COVID vaccine? Yes. Communicable Disease Screen: Negative forfever>/= 100 degrees Fahrenheit. Communicable disease screen isnegative. (-) rash or unusual skin lesion (-) travel/contact withtraveler (-) respiratory symptoms. Communication Speaks [place] Citizen? Yes,is preferred language.21:09 Acuity: Triage 2 jw521:09 Method Of Arrival: Police jw521:11 Acuity Assignment: Triage 2 or2Lrgsho Assessment:21:14 General: Appears in no apparent distress, Behavior is cooperative. hq3Zyvanz Screening: (1)Signs/symptoms infection Sepsis is notsuspected. Pain: [...] threats or abuse. Denies injuries from another. tq9Ownzreuebwk screening: No deficits noted. Offer of HIV testing:patient was previously offered screening. Fall Risk None identified.Assessment:22:58 Reassessment: Patient appears in no apparent distress at this time. jw508/2112:36 Reassessment: No changes from previously documented assessment. vj6Rctetqrjhvkc:02/2022:21 SAFE Act Report Not Completed. Intervention: Observation [...] Pt states that she was inpatient at [facility] from[facility]/21/21-02/25/21. Pt states that she is [facility] to [facility] and she has anappointment next week but [...] guns. Pt statesthat she has court in [place] 18. Pt does not presentwith delusional thoughts. Delusions are denied, Hallucinations aredenied. Patient's mood is depressed, Having thoughts of suicide. Planfor suicide is jumping into trffic. Patient reports history ofanxiety, Bipolar Disorder, Depression, self - mutilation, suicideattempt: many Mental Health Admissions: 02/21-02/25/2021 [facility] Outpatient Mental Health Services: Psychiatrist / Agency:[facility]. Living Environment: Family /Home Support: poor The [...] informed of patient's status at 11:53, ED XQti52wvetfqzi of patients status at 11:53. Disposition: Medically clearedfor disposition by Dr Argueta. Psychiatric Consult is performed byphone with Dr Macias The patient has a safe destination which is Ptwill be discharged home per Dr. Macias. Pt can contract for safety anddenies SI/HI. Pt will follow up with [facility]. Pt provided contactinformation for PSA and [employer]. Pt will come to the ED if problemscontinue or worsen. DSM-V DX [place] I diagnosis: Bipolar D/O, depressedAxis II diagnosis: Deferred [place] III diagnosis: None. [place] IVdiagnosis: poor impulse control. The patient is not a service memberor dependent. [place] Suicide Severity Rating Scale:Suicidal Ideation Rating 0; Intensity of Ideations Rating 0; SuicidalBehavior Rating 0.Psych:02/2021:18 Subjective: Patient's mood is irritable, Delusions are denied, pp3Mjuersucfoyzbx are denied Having thoughts of suicide. Plan [...] Temp 97.8; Pulse Ox 97% ; Weight hn3756.95 kg; Height 5 ft. 6 in. (167.64 [...] Medications:02/2023:22 Drug: Latuda 80 mg Route: PO; sc3082100:22 Follow up: Response: No adverse reaction sc308:22 Drug: Prazosin 1 mg Route: PO;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 [facility]. LivingEnvironment: Family / Home Support: poor The patient currently livesin a [facility] residence. The patient is single. Detox / [...] Dr Oneill\\ The patient is admitted to [facility] once abed becomes available or to transfer to another facility.09:53 Legal Status: Patient's legal status will be [facility] kfServices: 9.37. DSM-V DX [place] I diagnosis: Bipolar D/O, depressedAxis II diagnosis: Deferred [place] III diagnosis: None. [place] IVdiagnosis: poor coping. [facility] Admission Criteria: The patient requirescontinuous observation and/or [...] referralhospital acceptance. The patient is not a sales and service advisor or militarydependent. [place] Suicide Severity Rating Scale: Suicidal IdeationRating 5; Intensity of Ideations Rating 25; Suicidal Behavior Rating1.16:43 Narrative Pt has been accepted for transfer to [facility]. kfDoctor to doctor have been completed by transferring physician and receiving physician Dr. Estrada. RN to RN completed priorto transfer. Transportation arranged through [employer] for 17:00.Psych:02/1222:52 Subjective: Delusions are denied, Hallucinations are denied Having lq3mqrbhesy of suicide. Denies suicidal plan. Objective: Patient [...] order placed.22:59 Interventions: Belonging list filled out. zi1Delui Signs:22:48 BP 123 / 67; Pulse 80; Resp 18; Temp 97.5; Pulse Ox 97% on R/A; yu4Ccnfzz 104.33 kg (R); Height 5 ft. 6 [...] armband on for positive identification. Placed in vv4djua. Bed in low position. Sitter at bedside. [...] ef109:42 Drug: Latuda 80 mg Route: PO; mw9Dzwokou:13:10 ER care complete transfer ordered by . se13:54 Disposition: Transferred by ambulance: to [facility] ef113:54 Condition: stable, Provider notified of abnormal vital signs.13:54 Discharge instructions given to patient, Instructed on need alphonsosezio, Demonstrated understanding of instructions.13:54 Discharge Assessment: Patient verbalized understanding of dispositioninstructions. Patient has no functional deficits.16:27 Disposition: Report called to Chelsey AMAYA ef117:23 Patient left the ED. dd7Thqbaubgrt:Kylie العلي MD MD seDow, Wendy, RN RN rv1Ej-OuzdmhsRamón Anguiano MD MD na1Zakia [place], PSA PSA Ami Sow RN JOSE LUIS cf0XrczrRatna Barbosa RN RN wx6QsmnfawdUsha Adams Courtney, RN JOSE LUIS my8TbrpLoida Hansen RN RN fwClark, Charles cCorrections: (The following items were deleted from the chart)03:07 02:42 Mental health consult is initiated at 02:42. [facility] sm809:20 09:10 Subjective: The patients chief complaint is SI; Depression. PT [place] ED with [place] due to the pt verbalizingthat she was experiencing SI. Pt continues to express having thoughtsof suicide with no current plant. kf Name Value Range Interpretation Code Description Data Stephanie rce(s) Supporting Document(s) ID Date Data Source [id number] 02/19/2021 09:17:00 AM EDT [address] CONSULTPATIENT NAME: YARELI HATCH MR#: [id number] PHYSICIAN:AUTHOR: Dylan Aquino DATE: RM#: ERPATIENT : 00HistoryReason for consultTo determine possible psychiatric inpatient admissionPast Psych/Medical HistoryAllergiesCoded Allergies:haloperidol (From HALDOL) (06/15/20)risperidone (08/04/19)ExamVital LowtzJjcn-vu-ugog consult:Patient was seen by myself and the [...] suicidal andwished to be discharged back to [facility] where her home is. Patient did inquire atone point during the consult if [facility] was going to discharge her from theirservices. Patient was reassured this was not going to occur and that in factthe staff stated to us that she has been in the hospital more than she has beenat the residence. Staff from [facility] informed Alexa stearns that Yareli spendsmost of [...] the hospital. This information obtainedfrom staff at [facility] was reiterated to Mairlu and she agreed with thisstatement. She agreed that she would go back to [facility] and try to engage withstaff and get [...] and ready to go back to the [facility] environment.Plan:Patient will be discharged back to her residential setting of [facility]. TLS hasbeen made aware of this and [...] 02/19 0241Glucose (70 - 110 mg/dL) 108 08 0241Calcium (8.3 - 10.7 mg/dL) 8.4 02/19 0241Total Bilirubin (0.1 - 1.1 mg/dL) 0.3 02/19 0241AST (6 - 38 U/L) 19 02/19 0241ALT (6 - 54 U/L) 41 / 0241Alkaline Phosphatase (45 - 117 U/L) 118 [...] 02/19 0241MCHC (32.7 - 35.6 g/dL) 33.0 / 0241RDW (11.5 - 14.0 %) 12.2 / 0241Plt Count (150 - 450 x10E3/uL) 227 [...] Gran (auto) (0.0 - 0.1 x10E3/uL) 0.03 / 0241Absolute Neuts (auto) (1.2 - 7.6 x10E3/uL) 5.13 / 0241Absolute Lymphs (auto) (1.0 - 3.5 x10E3/uL) 2.87 / 0241Absolute Monos (auto) (0.1 - 1.0 x10E3/uL) 0.61 02/19 0241Absolute Eos (auto) (0.1 - 0.7 x10E3/uL) 0.17 / 0241Absolute Basos (auto) (0.0 - 0.1 x10E3/uL) 0.02 02/19 0241Nucleated RBC % (auto) (0 %) 0 02/19 0241ToxicologySalicylates (0.0 - 20.0 mg/dL) < 1.7 02/19 0241Opiates Screen (NEGATIVE) NEG 02/19 0455Methadone Screen (NEGATIVE) NEG 02/19 0455Acetaminophen (0 - 30 ug/mL) < 2.0 02/19 0241Barbiturate Screen (NEGATIVE) NEG 02/19 0455Phencyclidine Screen (NEGATIVE) NEG 02/19 0455Amphetamines Screen (NEGATIVE) NEG 02/19 0455Benzodiazepines (NEGATIVE) NEG 02/19 0455Cocaine Screen (NEGATIVE) NEG 02/195Cannabinoids (NEGATIVE) NEG 02/19 455Ethyl Alcohol (NONE DETECTED g/dL) 02/19 0241UrinesUrine Color Yellow 02/19 455Urine Appearance Turbid 02/19 455Urine pH (5.0 - 8.0) 5.5 02/19 455Ur Specific [place] (1.010 - 1.025) 1.030 H 02/19 455Urine [...] rce(s) Supporting Document(s) ID Date Data Source [id number] 02/19/2021 05:49:00 AM EDT [facility] Name Value Range Interpretation Code Description Data Stephanie rce(s) Supporting Document(s) PCP VISTA NEG NEGATIVE [facility] MINIMUM LEVEL OF DETECTION IS 25 ng/ml BENZODIAZEPINES NEG NEGATIVE [facility] MINIMUM LEVEL OF DETECTION IS 200 ng/ml COCAINE VISTA NEG NEGATIVE [facility] MINIMUM LEVEL OF DETECTION IS 300 ng/ml AMPHETAMINES NEG NEGATIVE [facility] MINIMUM LEVEL OF DETECTION IS 1000 ng/ml BARBITURATES NEG NEGATIVE [facility] CUTOFF CONCENTRATION IS 200 ng/ml CANNABINOIDS NEG NEGATIVE [facility] CUTOFF CONCENTRATION IS 50 ng/ml METHADONE VISTA [facility]G [facility]GAT[facility] MINIMUM LEVEL OF DETECTION IS 300 ng/ml OPIATE VISTA NEG NEGATIVE [facility] MINIMUM DETECTION LEVEL IS 300 ng/ml ID Date Data Source [id number] 02/19/2021 05:07:00 AM EDT [facility] [place] Name Value Range Interpretation Code Description Data Stephanie rce(s) Supporting Document(s) HCG QUAL URINE Negative Negative [facility] ID Date Data Source [id number] 02/19/2021 05:07:00 AM EDT [facility] [place] Name Value Range Interpretation Code Description Data Stephanie rce(s) Supporting Document(s) URINE COLOR Yellow [facility] UAPR Turbid [facility] UGLU Negative NEGATIVE [facility] URINE BILIRUBIN Negative NEGATIVE [facility] al UKET Negative NEGATIVE [facility] USG 1.030 1.010-1.025 [facility] UBLO Non-hemolyzed Trace NEGATIVE [facility] spital UpH 5.5 5.0-8.0 [facility] UPRO Negative Negative [facility] UUB 1.0 mg/dL 0.2-1.0 [facility] UNIT Negative Negative [facility] ULEU Negative Negative [facility] ID Date Data Source [id number] 02/19/2021 03:08:00 AM EDT [facility] [place] Name Value Range Interpretation Code Description Data Stephanie rce(s) Supporting Document(s) SALICYLATE < 1.7 mg/dL 0.0-20.0 [facility] ID Date Data Source [id number] 02/19/2021 03:08:00 AM EDT [facility] [place] Name Value Range Interpretation Code Description Data Stephanie rce(s) Supporting Document(s) ACETAMINOPHEN < 2.0 ug/mL 0-30 [facility] ID Date Data Source [id number] 02/19/2021 03:08:00 AM EDT [facility] [place] Name Value Range Interpretation Code Description Data Stephanie rce(s) Supporting Document(s) ETOH NONE DETECTED [facility] NONE DETECTED ID Date Data Source [id number] 02/19/2021 03:08:00 AM EDT [facility] [place] Name Value Range Interpretation Code Description Data Stephanie rce(s) Supporting Document(s) GLU 108 mg/dL 70-110 [facility] Patients taking Sulfasalazine may have f alsely depressedGlucose levels. Patients taking Sulfapyridine may havefalsely elevated Glucose levels. Patients should be drawnfor Glucose before the initial administration of eitherdrug. BUN 18 mg/dL 7-23 [facility] CRE 0.698 mg/dL 0.500-1.300 [facility] GFR > 60 mL/min [facility] CHLORIDE 110 mmol/L 99-110 [facility] NA 142 mmol/L 136-147 [facility] POTASSIUM 4.1 mmol/L 3.5-5.1 [facility] TCO2 24 mmol/L 20-33 [facility] ANION GAP 12.1 10.0-20.0 [facility] CA 8.4 mg/dL 8.3-10.7 [facility] ALKALINE PHOS 118 U/L 45-117 H [facility] TP 7.4 g/dL 6.0-7.8 [facility] ALB 3.6 g/dL 3.5-5.0 [facility] ESRD Dialysis patient Albumin reference range: 2.9-4.4 g/dL GL 3.8 g/dL 2.3-3.5 [facility] A/G 0.9 1.0-2.5 [facility] T. BILIRUBIN 0.3 mg/dL 0.1-1.1 [facility] [place] Total Bilirubin is n ot recommended forpatients undergoing treatment with eltrombopag (Promacta)due to the potential for falsely elevated results. ALTI 41 U/L 6-54 [facility] Patients taking Sulfasalazine and/or Sul fapyridine may havefalsely depressed ALT levels. Patients should be drawn forALT before the initial administration of either drug. AST 19 U/L 6-38 [facility] Patients taking Sulfasalazine and/or Sul fapyridine may havefalsely depressed AST levels. Patients should be drawn forAST before the initial administration of either drug. ID Date Data Source [id number] 02/19/2021 02:51:00 AM EDT [facility] [place] Name Value Range Interpretation Code Description Data Stephanie rce(s) Supporting Document(s) WBC 8.83 x10E3/uL 4.0-10.5 [facility] RBC 4.16 x10E6/uL 4.20-5.40 [facility] Hemoglobin 12.4 g/dL 12.0-16.0 [facility] Hematocrit 37.6 % 37.0-47.0 [facility] MCV 90.4 fL 81.0-99.0 [facility] MCH 29.8 pg 27.0-31.0 [facility] MCHC 33.0 g/dL 32.7-35.6 [facility] RDW 12.2 % 11.5-14.0 [facility] Platelet count 227 x10E3/uL 150-450 [facility] ital MPV 9.3 fl 6.9-9.5 [facility] Neutrophils 58.2 % 34-64 [facility] Lymphocytes 32.5 % 25-45 [facility] Monocytes 6.9 % 1.7-10.6 [facility] Eosinophils 1.9 % 0.4-7.0 [facility] Basophils 0.2 % 0.1-2.0 [facility] Imm. Gran. 0.3 % 0.1-2.0 [facility] Abs. Neutro. 5.13 x10E3/uL 1.2-7.6 [facility] Abs. Lymph. 2.87 x10E3/uL 1.0-3.5 [facility] Abs. [place]. 0.61 x10E3/uL 0.1-1.0 [facility] Abs. Eosin. 0.17 x10E3/uL 0.1-0.7 [facility] Abs. Baso. 0.02 x10E3/uL 0.0-0.1 [facility] Abs. Imm. Gran. 0.03 x10E3/uL 0.0-0.1 [facility] spital ANRBC% 0 % 0 [facility] ID Date Data Source [id number] 02/19/2021 10:15:00 AM EDT [facility] Physician DocumentationClaxlexy-Naveen Hinkle edical CenterName: Yareli Mejiage: 20 yrsSex: FemaleDOB: 2000MRN: [id number] Date: 02/19/2021Time: 02:28Account#: [id number] MD: NONE, - Per PatientED Physician Alissa العلي Summary:02/19/21 09:20Discharge OrderedLocation: Home Self Care seProblem: an ongoing problem seSymptoms: are unchanged seCondition: Stable seDiagnosis- Bipolar disorder, unspecified seFollowup: se- With: Private Physician- When: as instructed- Reason: Recheck today's complaints, Continuance of careDischarge Instructions:- BIPOLAR DISORDER se- Discharge Summary Sheet ah55Ewzbg:- Medication Reconciliation se- Medication Reconciliation Form - 2nd Copy seHPI:02/1104:51 This 20 yrs old White Female presents to ER via Police with oi6klkpglivqz of Psych Problem.04:51 The patient presents to the emergency department with PT. [facility]GHT TO [facility] FOR M[facility]. PT. HAS BEEN DEPRESSED & HAS SI WITH PLAN TO SELFHARM OR DROWN SELF, SHE HAS SMALL SUPERFICIAL SKIN BURN LT. 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 Onset: The symptoms/episode began/occurred just priorto arrival. Past psychiatric history: Prior diagnosis: bipolardisorder. Associated signs and symptoms: The patient has no apparentassociated signs or symptoms. Severity of symptoms: At their worstthe symptoms were moderate.[place] PROGRAM COORDINATOR:02:34 LMP N/A - Irregular menses fb2Dlmjpsrgdl:- Allergies: Haldol; Risperdal;- Home Meds:1. ibuprofen 400 [...] Psych: Positive for depression, homicidal ideation, suicidal bb1lhotxtrq, Negative for drug dependence, alcohol dependence, auditoryhallucinations, [...] Temp 97.8; Pulse Ox 98% ; Weight ji6548.33 kg; Height 5 ft. 6 in. (167.64 cm);09:45 BP 131 / 84; Pulse 72; Resp 20; Temp 97.9; Pulse Ox 97% ; Pain 0/10; ef102:34 Body Mass Index 37.12 (104.33 kg, 167.64 cm) jw5MDM:02/1004:54 Data reviewed: vital signs, nurses notes, lab test result(s). na108/1103:30 Patient medically screened. [id number]:37 Order name: Acetaminophen Level; Complete Time: 04:50 [id number] Order name: CBC with diff; Complete Time: 04:50 jw5082:37 Order name: CMP; Complete Time: 04:50 jw5082:37 Order name: ETOH; Complete Time: 04:50 [id number]:37 Order name: Glucose jw5082:37 Order name: Salicylate Level; Complete Time: 04:50 jw5082:37 Order name: Triage - Drug Screen; Complete Time: 09:20 jw508/1109:20 Interpretation: Within normal limits. se2:37 Order name: UA; Complete Time: 09:21 jw5089:21 Interpretation: Normal except: USG 1.030. se2:37 Order name: Urine HCG Qualitative; Complete Time: 09:21 jw508/1109:21 Interpretation: Within normal limits. se2:37 Order name: Diet - Mental Health Tray (call dietary); Complete Time: jw507:27082:37 Order name: Belongings List; Complete Time: 09:45 jw5082:37 Order name: Document Weight and Height for BMI; Complete Time: 07::37 Order name: Mental Health Evaluation; Complete Time: ::37 Order name: Mental Health Level 3; Complete Time: ::37 Order name: VS q shift; Complete Time: ::50 Order name: Medically Cleared for Eval by-Psychosocial, Motivational Speaker na1(.PSA); Complete Time: 05:05Dispensed Medications:No medications were administeredSignatures:Dispatcher [employer] Kylie Fishman MD MD seAl-Hussein, Nabeel, MD MD na1White, Jason, RN RN gu0XwjcpxxoAmi Medrano RN RN nc8Kmcryiqqwwx: (The following items were deleted from the chart)02:33 02:31 Home Meds: loratadine 10 mg oral TbDi once daily; jw5 jw5 Name Value Range Interpretation Code Description Data Stephanie rce(s) Supporting Document(s) ID Date Data Source [id number] 02/19/2021 10:15:00 AM EDT [facility] NotesCl[facility]Mary [facility] terName: Yareli DuvallAge: 20 yrsSex: FemaleDOB: 2000MRN: [id number] Date: 02/19/2021Time: 02:28Account#: [id number] MD: NONE, - Per PatientDiagnosis: Bipolar disorder, unspecifiedPresentation:02/1102:29 Presenting complaint: Patient brought in by [facility] officer Lilly emmanuelfor mental health evaluation Patient reports feeling suicidal andhomicidal patient reports plan for suicide is to self harm or todrown self and homicidal towards mother. International Travel FeverNo. Coronavirus Screening: Have you been diagnosed with COVID-19 inthe past 30 days? no [facility] you [facility]? no Flu-like symptoms reported in the last 14 days: no. Haveyou had close contact with confirmed or suspected COVID-19 case? noDo you live in a setting where a large of amount of people live, suchas long-term, family care, nursing home, etc? no. Have you traveled to community health systems with widespread or ongoing COVID-19 community spread [facility]? no Have you traveled internationally or hadcontact with someone that has traveled and has been ill in the past 3weeks? no Have you received the COVID vaccine? Yes. CommunicableDisease Screen: Negative for fever>/= 100 degrees Fahrenheit.Communicable disease screen is negative. (-) rash or unusual skinlesion. Communication Speaks [place] Citizen? Yes, is preferred language.02:29 Acuity: Triage 2 jw502:29 Method Of Arrival: Police jw502:31 Acuity Assignment: Triage 2 qb1Mnagqx Assessment:02:33 General: Appears in no apparent distress, Behavior is cooperative. aj1Dyvgur Screening: (1)Signs/symptoms infection Sepsis is notsuspected. Pain: [...] aware ofpositive screen, suicide precautions implemented. ESS-6 ordered.[place] PROGRAM COORDINATOR:02:34 LMP N/A - Irregular menses hu5Mzhlkliznc:- Allergies: Haldol; Risperdal;- Home Meds:1. ibuprofen 400 [...] threats or abuse. Denies injuries from another. uv8Insmjdxsrld screening: No deficits noted. Offer of HIV testing:patient was previously offered screening. Fall Risk None identified.Assessment:07:47 Derm: abrasion noted to left forearm; bacitracin applied. General: qq3Shdinmy in no apparent distress, obese, Behavior is cooperative.Neuro: Level of Consciousness is awake, alert, obeys commands,Oriented to person, place, time. Respiratory: Airway is patentRespiratory effort is even, unlabored.Psychosocial:05:05 SAFE Act Report Not Completed. Intervention: Observation Level 3. [facility] health consult is initiated at 05:00. 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 Pt has an extensive inpatientmental health history, the last time being admitted was 01/02/21 afteran overdose. [facility] [...] informed of patient's status at 09:09, ED OBaz89mszwejpo of patients status at 09:09. Disposition: Medically clearedfor disposition by Dr Levy. Psychiatric Consult is performed byphone with Dr Dylan Ribeiro NP The patient has a safe destinationwhich is Pt will be discharged home to [facility] per Dylan Ribeiro NP. Ptcan contract for safety and denies SI/HI. Pt will follow up with [facility].Pt provided contact information for [facility] and [facility]. Pt will come tothe ED if problems continue or worsen. DSM-V DX [place] I diagnosis:Bipolar D/O, mixed [place] II diagnosis: Deferred [place] III diagnosis:None. [place] IV diagnosis: poor impulse control. Abuse/DV Screen: Thepatient / caregiver reports he/she is not in a situation that causesfear, pain or injury. The patient is not a sales and service advisor or militarydependent. [place] Suicide Severity Rating Scale: Suicidal IdeationRating 0; Intensity of Ideations Rating 0; Suicidal Behavior Rating 0.Psych:02:35 Subjective: Patient's mood is sad, Delusions are denied, rg0Aqnbmcfvegrhmu are denied Having thoughts of suicide. Plan [...] Temp 97.8; Pulse Ox 98% ; Weight ge7026.33 kg; Height 5 ft. 6 in. (167.64 [...] Physician. se09:45 No Physician assisted procedures completed. bt6Zcznjhkdmphz Medications:No medications were administeredOutcome:09:20 Discharge ordered by . se09:45 Disposition: Discharged to home ef109:45 Condition: stable, Provider notified of abnormal vital signs.09:45 Discharge instructions given to patient, Instructed on dischargeinstructions, follow up and referral plans. Demonstratedunderstanding of instructions.09:45 Discharge Assessment: Patient verbalized understanding of dispositioninstructions. Patient has no functional deficits.10:15 Patient left the ED. dc0Tyeuwvuakb:Kylie العلي MD MD seAl-Hussein, Nabeel, MD MD na1Fortunato Mark RN RN yc9WdkhindwAmi arthur RN RN ym8HillIna Jack Nicole nhCorrections: (The following items were deleted from the chart)02:33 02:31 Home Meds: loratadine 10 mg oral TbDi once daily; jw5 jw505:15 05:06 Subjective: The patients chief complaint is [facility] with a plan to [...] days ago by burning herself with a restaurant general manager. Pt has anextensive inpatient mental health history. Pt goes [facility] where she sees Sadaf. Pt doesnot know when her next appointment is. Pt . [place] Name Value Range Interpretation Code Description Data Stephanie rce(s) Supporting Document(s) ID Date Data Source [id number] 02/17/2021 04:09:00 AM EDT [facility] Name Value Range Interpretation Code Description Data Stephanie rce(s) Supporting Document(s) SALICYLATE < 1.7 mg/dL 0.0-20.0 [facility] ID Date Data Source [id number] 02/17/2021 04:09:00 AM EDT [facility] Name Value Range Interpretation Code Description Data Stephanie rce(s) Supporting Document(s) ACETAMINOPHEN < 2.0 ug/mL 0-30 [facility] al ID Date Data Source [id number] 02/17/2021 04:09:00 AM EDT [facility] Name Value Range Interpretation Code Description Data Stephanie rce(s) Supporting Document(s) ETOH NONE DETECTED [facility] NONE DETECTED ID Date Data Source [id number] 02/17/2021 04:09:00 AM EDT [facility] Name Value Range Interpretation Code Description Data Stephanie rce(s) Supporting Document(s) GLU 102 mg/dL 70-110 [facility] Patients taking Sulfasalazine may have f alsely depressedGlucose levels. Patients taking Sulfapyridine may havefalsely elevated Glucose levels. Patients should be drawnfor Glucose before the initial administration of eitherdrug. BUN 20 mg/dL 7-23 [facility] CRE 0.620 mg/dL 0.500-1.300 [facility] GFR > 60 mL/min [facility] CHLORIDE 111 mmol/L 99-110 [facility] NA 142 mmol/L 136-147 [facility] POTASSIUM 3.5 mmol/L 3.5-5.1 [facility] TCO2 22 mmol/L 20-33 [facility] ANION GAP 12.5 10.0-20.0 [facility] CA 9.0 mg/dL 8.3-10.7 [facility] ALKALINE PHOS 112 U/L 45-117 [facility] TP 7.3 g/dL 6.0-7.8 [facility] ALB 3.8 g/dL 3.5-5.0 [facility] ESRD Dialysis patient Albumin reference range: 2.9-4.4 g/dL GL 3.5 g/dL 2.3-3.5 [facility] A/G 1.1 1.0-2.5 [facility] T. BILIRUBIN 0.3 mg/dL 0.1-1.1 [facility] [place] Total Bilirubin is n ot recommended forpatients undergoing treatment with eltrombopag (Promacta)due to the potential for falsely elevated results. ALTI 43 U/L 6-54 [facility] Patients taking Sulfasalazine and/or Sul fapyridine may havefalsely depressed ALT levels. Patients should be drawn forALT before the initial administration of either drug. AST 19 U/L 6-38 [facility] Patients taking Sulfasalazine and/or Sul fapyridine may havefalsely depressed AST levels. Patients should be drawn forAST before the initial administration of either drug. ID Date Data Source [id number] 02/17/2021 03:47:00 AM EDT [facility] Name Value Range Interpretation Code Description Data Stephanie rce(s) Supporting Document(s) WBC 9.27 x10E3/uL 4.0-10.5 [facility] RBC 4.10 x10E6/uL 4.20-5.40 [facility] Hemoglobin 12.1 g/dL 12.0-16.0 [facility] Hematocrit 36.7 % 37.0-47.0 [facility] MCV 89.5 fL 81.0-99.0 [facility] MCH 29.5 pg 27.0-31.0 [facility] MCHC 33.0 g/dL 32.7-35.6 [facility] RDW 12.4 % 11.5-14.0 [facility] Platelet count 224 x10E3/uL 150-450 [facility] ital MPV 9.3 fl 6.9-9.5 [facility] Neutrophils 61.0 % 34-64 [facility] Lymphocytes 30.1 % 25-45 [facility] Monocytes 6.7 % 1.7-10.6 [facility] Eosinophils 1.6 % 0.4-7.0 [facility] Basophils 0.2 % 0.1-2.0 [facility] Imm. Gran. 0.4 % 0.1-2.0 [facility] Abs. Neutro. 5.65 x10E3/uL 1.2-7.6 [facility] Abs. Lymph. 2.79 x10E3/uL 1.0-3.5 [facility] Abs. [place]. 0.62 x10E3/uL 0.1-1.0 [facility] l Abs. Eosin. 0.15 x10E3/uL 0.1-0.7 [facility] al Abs. Baso. 0.02 x10E3/uL 0.0-0.1 [facility] l Abs. Imm. Gran. 0.04 x10E3/uL 0.0-0.1 [facility] spital ANRBC% 0 % 0 [facility] ID Date Data Source [id number] 02/17/2021 04:05:00 AM EDT [facility] Name Value Range Interpretation Code Description Data Stephanie rce(s) Supporting Document(s) PCP VISTA NEG NEGATIVE [facility] MINIMUM LEVEL OF DETECTION IS 25 ng/ml BENZODIAZEPINES NEG NEGATIVE [facility] al MINIMUM LEVEL OF DETECTION IS 200 ng/ml COCAINE VISTA NEG NEGATIVE [facility] MINIMUM LEVEL OF DETECTION IS 300 ng/ml AMPHETAMINES NEG NEGATIVE [facility] MINIMUM LEVEL OF DETECTION IS 1000 ng/ml BARBITURATES NEG NEGATIVE [facility] al CUTOFF CONCENTRATION IS 200 ng/ml CANNABINOIDS NEG NEGATIVE [facility] al CUTOFF CONCENTRATION IS 50 ng/ml METHADONE VISTA NEG NEGATIVE [facility] al MINIMUM LEVEL OF DETECTION IS 300 ng/ml OPIATE VISTA NEG NEGATIVE [facility] MINIMUM DETECTION LEVEL IS 300 ng/ml ID Date Data Source [id number] 02/17/2021 03:48:00 AM EDT [facility] Name Value Range Interpretation Code Description Data Stephanie rce(s) Supporting Document(s) URINE COLOR Yellow [facility] UAPR Cloudy [facility] UGLU Negative NEGATIVE [facility] URINE BILIRUBIN Negative NEGATIVE [facility] al UKET Negative NEGATIVE [facility] USG 1.028 1.010-1.025 [facility] UBLO Negative NEGATIVE [facility] UpH 5.0 5.0-8.0 [facility] UPRO Negative Negative [facility] UUB 1.0 mg/dL 0.2-1.0 [facility] UNIT Negative Negative [facility] ULEU Negative Negative [facility] ID Date Data Source [id number] 02/17/2021 01:54:00 PM EDT [facility] Physician DocumentationClLeticia Hinkle edical CenterName: Yareli DuvallAge: 20 yrsSex: FemaleDOB: 2000MRN: [id number] Date: 02/17/2021Time: 03:10Account#: [id number] MD:ED Physician Thea Bowman Summary:02/17/21 12:48Discharge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 PHYSICIAN: BROOKLYN ONEILL MD ADM. DATE: 01/03/21PROGRESS NOTE DATE: 01/30/21 .#: 308ACCOUNT #: [id number] NOTEIDENTIFICATION: A 20-year-old female with borderline personality [...] an hour.Date Dictated: 01/30/2021 10:21:59Date Transcribed: 01/30/2021 21:48:49JV/Ninfab #: [id number]: 01/30/21 1021 Electronically SignedTRANS:01/30/21 2248 FILI CANELA MDTRANS BY:KIERRA SIGNED:01/31/21REPORT COPY TO: Name Value Range Interpretation Code Description Data Stephanie rce(s) Supporting Document(s) ID Date Data Source [id number] 01/31/2021 12:29:00 PM EDT [facility] Does the pt. have a limb restriction? NR estricted limb verified YNO BETA HEMOLYTIC STREPTOCOCCUS ISOLATEDNO PATHOGENS ISOLATED Name Value Range Interpretation Code Description Data Stephanie rce(s) Supporting Document(s) ID Date Data Source [id number] 01/29/2021 10:54:00 AM EDT [facility] [address] HEALTH PROGRESS NOTEPATIENT NAME: YARELI HATCH PHYSICIAN: BROOKLYN ONEILL MDAUTHOR: Colleen SMITH,DhruvADM. DATE: 01/03/21 MR#: [id number] NOTE DATE: 01/29/21 RM#: [id number] TIME: 1058 [...] SIGNED: 01/29/21 Electronically SignedTIME SIGNED: 1058 BOGDAN MACIAS MD Name Value Range Interpretation Code Description Data Stephanie rce(s) Supporting Document(s) ID Date Data Source [id number] 01/28/2021 10:27:00 AM EDT [facility] PT REFUSED Name Value Range Interpretation Code Description Data Stephanie rce(s) Supporting Document(s) CKI 139 U/L 17-150 [facility] ID Date Data Source [id number] 01/28/2021 10:27:00 AM EDT [facility] REFUSED Name Value Range Interpretation Code Description Data Stephanie rce(s) Supporting Document(s) GLU 103 mg/dL 70-110 [facility] Patients taking Sulfasalazine may have f alsely depressedGlucose levels. Patients taking Sulfapyridine may havefalsely elevated Glucose levels. Patients should be drawnfor Glucose before the initial administration of eitherdrug. BUN 22 mg/dL 7-23 [facility] CRE 0.589 mg/dL 0.500-1.300 [facility] GFR > 60 mL/min [facility] CHLORIDE 109 mmol/L 99-110 [facility] NA 141 mmol/L 136-147 [facility] POTASSIUM 3.9 mmol/L 3.5-5.1 [facility] TCO2 24 mmol/L 20-33 [facility] ANION GAP 11.9 10.0-20.0 [facility] CA 8.9 mg/dL 8.3-10.7 [facility] ALKALINE PHOS 113 U/L 45-117 [facility] TP 7.6 g/dL 6.0-7.8 [facility] ALB 3.8 g/dL 3.5-5.0 [facility] ESRD Dialysis patient Albumin reference range: 2.9-4.4 g/dL GL 3.8 g/dL 2.3-3.5 [facility] A/G 1.0 1.0-2.5 [facility] T. BILIRUBIN 0.6 mg/dL 0.1-1.1 [facility] [place] Total Bilirubin is n ot recommended forpatients undergoing treatment with eltrombopag (Promacta)due to the potential for falsely elevated results. ALTI 43 U/L 6-54 [facility] Patients taking Sulfasalazine and/or Sul fapyridine may havefalsely depressed ALT levels. Patients should be drawn forALT before the initial administration of either drug. AST 22 U/L 6-38 [facility] Patients taking Sulfasalazine and/or Sul fapyridine may havefalsely depressed AST levels. Patients should be drawn forAST before the initial administration of either drug. ID Date Data Source [id number] 01/28/2021 10:22:00 AM EDT [facility] Name Value Range Interpretation Code Description Data Stephanie rce(s) Supporting Document(s) WBC 5.96 x10E3/uL 4.0-10.5 [facility] RBC 4.47 x10E6/uL 4.20-5.40 [facility] Hemoglobin 13.4 g/dL 12.0-16.0 [facility] Hematocrit 39.5 % 37.0-47.0 [facility] MCV 88.4 fL 81.0-99.0 [facility] MCH 30.0 pg 27.0-31.0 [facility] MCHC 33.9 g/dL 32.7-35.6 [facility] RDW 12.0 % 11.5-14.0 [facility] Platelet count 256 x10E3/uL 150-450 [facility] ital MPV 9.5 fl 6.9-9.5 [facility] Neutrophils 55.0 % 34-64 [facility] Lymphocytes 35.9 % 25-45 [facility] Monocytes 6.5 % 1.7-10.6 [facility] Eosinophils 1.8 % 0.4-7.0 [facility] Basophils 0.3 % 0.1-2.0 [facility] Imm. Gran. 0.5 % 0.1-2.0 [facility] Abs. Neutro. 3.27 x10E3/uL 1.2-7.6 [facility] Abs. Lymph. 2.14 x10E3/uL 1.0-3.5 [facility] Abs. [place]. 0.39 x10E3/uL 0.1-1.0 [facility]. Eosin. 0.11 x10E3/uL 0.1-0.7 [facility] Abs. Baso. 0.02 x10E3/uL 0.0-0.1 [facility] Abs. Imm. Gran. 0.03 x10E3/uL 0.0-0.1 N [facility] spital ANRBC% 0 % 0 [facility] ID Date Data Source [id number] 01/28/2021 09:45:00 AM EDT [address] HEALTH PROGRESS NOTEPATIENT NAME: YARELI HATCH PHYSICIAN: BROOKLYN ONEILL MDAUTHOR: Lana Aquino. DATE: 01/03/21 MR#: [id number] NOTE DATE: 01/28/21 RM#: [id number] TIME: 954 [...] rce(s) Supporting Document(s) ID Date Data Source [id number] 01/27/2021 10:15:00 AM EDT [address] HEALTH PROGRESS NOTEPATIENT NAME: YARELI HATCH PHYSICIAN: BROOKLYN ONEILL MDAUTHOR: Gema WHITE,DylanADM. DATE: 01/03/21 MR#: [id number] NOTE DATE: 01/27/21 RM#: [id number] TIME: 1114 is a 20-year-old white female.CC/Hx Present Illness"I overdosed"Events Since Last EntryPatient met with team today and presented as disheveled, unkempt, andmalodorous. Present were myself, instructor wastewater treatment plant, and charge nurse.Weekend events were discussed. Patient [...] focused on havingmore one-on-one attention with her instructor wastewater treatment plant. She was told due toher behaviors over [...] hasbeen receiving. Still awaiting bed availability at [facility] for housing as per herAOT. She currently denies any physical/medical complaints.ObjectiveVital SignsVital [...] rce(s) Supporting Document(s) ID Date Data Source [id number] 02/03/2021 11:47:00 AM EDT [address] HEALTH PROGRESS NOTEPATIENT NAME: YARELI HATCH CATTENDING PHYSICIAN: BROOKLYN ONEILL MDAUTHOR: Ana Win. DATE: 01/03/21 MR#: [id number] NOTE DATE: 01/26/21 RM#: [id number] TIME: 1154 [...] her on the phone. She also states herbbonniefriend broke up with her but it was [...] rce(s) Supporting Document(s) ID Date Data Source [id number] 01/24/2021 09:36:00 AM EDT [place] [id number] HEALTH PROGRESS NOTEPATIENT NAME: YARELI HATCH PHYSICIAN: BROOKLYN ONEILL MDAUTHOR: Lana Aquino. DATE: 01/03/21 MR#: [id number] NOTE DATE: 01/24/21 RM#: [id number] TIME: 951 is a 20-year-old white female.CC/Hx Present Illness"I overdosed"Events Since Last EntryPatient presented as unkempt, disheveled and malodorous today. We discussedMarilu's good behaviors from yesterday and we also discussed boundaries todayin regards to staff and her instructor wastewater treatment plant. Patient became upset whenwe discussed boundaries and [...] breath that was not audible to myself,the instructor wastewater treatment plant or the charge nurse.Mental status exam: Patient [...] nursing staff.Continue to await bed availability at [facility]. Patient currently d enies anymedical/physical complaints.ObjectiveVital SignsVital [...] rce(s) Supporting Document(s) ID Date Data Source [id number] 01/23/2021 09:20:00 AM EDT [address] HEALTH PROGRESS NOTEPATIENT NAME: YARELI HATCH PHYSICIAN: BROOKLYN ONEILL MDAUTHOR: Lana Aquino. DATE: 01/03/21 MR#: [id number] NOTE DATE: 01/23/21 RM#: [id number] TIME: 935 is a 20-year-old white female.CC/Hx Present Illness"I overdosed"Events Since Last EntryPresented today as cooperative and pleasant. In the meeting today the chargenurse was present, myself, and her instructor wastewater treatment plant Madelin. We discussedthe events yesterday that led [...] also wrote a letter inputted underneath the instructor wastewater treatment plant'sdoor and inquired about this. This was discussed [...] of care.Continuing to await bed availability at [facility].ObjectiveVital SignsVital Signs-LastResult Date TimeB/P 118/78 01/23 0818Temp [...] rce(s) Supporting Document(s) ID Date Data Source [id number] 01/22/2021 11:07:00 AM EDT [address] HEALTH PROGRESS NOTEPATIENT NAME: YARELI HATCH PHYSICIAN: BROOKLYN ONEILL MDAUTHOR: Gema WHITE,Lana. DATE: 01/03/21 MR#: [id number] NOTE DATE: 01/22/21 RM#: [id number] TIME: 1116 [...] Continue to await for bed availability at [facility].Patient denies any physical and/or medical concerns at [...] rce(s) Supporting Document(s) ID Date Data Source [id number] 01/21/2021 08:25:00 AM EDT [address] HEALTH PROGRESS NOTEPATIENT NAME: YARELI HATCH CATTENGIOVANNY PHYSICIAN: BROOKLYN ONEILL MDAUTHOR: Gema WHITE,DylanADM. DATE: 01/03/21 MR#: [id number] NOTE DATE: 01/21/21 RM#: [id number] TIME: 1000 [...] to wait for an open bed at [facility] for housing.ObjectiveVital SignsVital Signs-LastResult Date TimeB/P 126/80 [...] behavior intolerableDATE SIGNED: 01/21/21 Electronically SignedTIME SIGNED: Sabrina RIBEIRO Name Value Range Interpretation Code Description Data Stephanie rce(s) Supporting Document(s) ID Date Data Source [id number] 01/20/2021 11:20:00 AM EDT [address] HEALTH PROGRESS NOTEPATIENT NAME: YARELI HATCH [facility] PHYSICIAN: BROOKLYN ONEILL MDAUTHOR: Lana Aquino. DATE: 01/03/21 MR#: [id number] NOTE DATE: 01/20/21 RM#: [id number] TIME: 1255 [...] would notice. [facility] [...] safety. Continue to await bed availability at [facility] for placement as per herAOT order. Lab [...] behavior intolerableDATE SIGNED: 01/20/21 Electronically SignedTIME SIGNED: 8011 DYLAN - CHRISTOPHER RIBEIRO Name Value Range Interpretation Code Description Data Stephanie rce(s) Supporting Document(s) ID Date Data Source [id number] 01/18/2021 09:57:00 [facility] Name Value Range Interpretation Code Description Data Stephanie rce(s) Supporting Document(s) CHOL 182 mg/dL 100-200 [facility] TRIG 118 mg/dL 30-190 [facility] HDL 52 mg/dL 35-80 [facility] LDL DIRECT 111 mg/dL 0-100 [facility] VLDL 19 mg/dL 0-100 [facility] ID Date Data Source [id number] 01/18/2021 09:57:00 AM EDT [facility] Name Value Range Interpretation Code Description Data Stephanie rce(s) Supporting Document(s) GLU 113 mg/dL 70-110 [facility] Patients taking Sulfasalazine may have f alsely depressedGlucose levels. Patients taking Sulfapyridine may havefalsely elevated Glucose levels. Patients should be drawnfor Glucose before the initial administration of eitherdrug. BUN 17 mg/dL 7-23 [facility] CRE 0.741 mg/dL 0.500-1.300 [facility] GFR > 60 mL/min [facility] CHLORIDE 107 mmol/L 99-110 [facility] NA 142 mmol/L 136-147 [facility] POTASSIUM 4.4 mmol/L 3.5-5.1 [facility] TCO2 30 mmol/L 20-33 [facility] ANION GAP 9.4 10.0-20.0 [facility] CA 9.2 mg/dL 8.3-10.7 [facility] ALKALINE PHOS 111 U/L 45-117 [facility] TP 7.3 g/dL 6.0-7.8 [facility] ALB 3.9 g/dL 3.5-5.0 [facility] ESRD Dialysis patient Albumin reference range: 2.9-4.4 g/dL GL 3.4 g/dL 2.3-3.5 [facility] A/G 1.1 1.0-2.5 [facility] T. BILIRUBIN 0.5 mg/dL 0.1-1.1 [facility] [place] Total Bilirubin is n ot recommended forpatients undergoing treatment with eltrombopag (Promacta)due to the potential for falsely elevated results. ALTI 57 U/L 6-54 [facility] Patients taking Sulfasalazine and/or Sul fapyridine may havefalsely depressed ALT levels. Patients should be drawn forALT before the initial administration of either drug. AST 31 U/L 6-38 [facility] Patients taking Sulfasalazine and/or Sul fapyridine may havefalsely depressed AST levels. Patients should be drawn forAST before the initial administration of either drug. ID Date Data Source [id number] 01/17/2021 10:24:00 AM EDT [facility] [place], [place] [address]QMXSAK HEALTH PROGRESS NOTEPATIENT NAME: DENISSE HATCHSOM YA PHYSICIAN: BROOKLYN ONEILL MDAUTHOR: Lana Aquino. DATE: 01/03/21 MR#: [id number] NOTE DATE: 01/17/21 RM#: [id number] TIME: 1036 [...] said she spoke with her intensive case managers yesterday, Eve and theycompleted the enrollment paperwork required the intensive case managementprogram. She also said she spoke with Lorraine Regarding a bed at [facility] andaccording to the director of the TLS [...] rce(s) Supporting Document(s) ID Date Data Source [id number] 01/16/2021 01:40:00 PM EDT [place] [id number] HEALTH PROGRESS NOTEPATIENT NAME: YARELI HATCH PHYSICIAN: BROOKLYN ONEILL MDAUTHOR: Lana Aquino. DATE: 01/03/21 MR#: [id number] NOTE DATE: 01/16/21 RM#: [id number] TIME: 1413 [...] Shortly afterthe meeting she approached Gloria her instructor wastewater treatment plant asking to be put onthe Abilify injection [...] rce(s) Supporting Document(s) ID Date Data Source [id number] 01/16/2021 10:03:00 AM EDT [facility] Exam Number: [id number] Reported By: - JEREMIAH PEOPLES MD Signed By: JEREMIAH PEOPLES MD Name Value Range Interpretation Code Description Data Stephanie rce(s) Supporting Document(s) ID Date Data Source [id number] 01/15/2021 11:23:00 AM EDT [address] HEALTH PROGRESS NOTEPATIENT NAME: YARELI HATCH CATTENGIOVANNY PHYSICIAN: BROOKLYN ONEILL MDAUTHOR: Lana Aquino. DATE: 01/03/21 MR#: [id number] NOTE DATE: 01/15/21 RM#: [id number] TIME: 1136 [...] wait for a bed tobecome available at [facility] as per her AOTDATE SIGNED: 01/15/21 Electronically SignedTIME SIGNED: 1136 DYLAN RIBEIRO Name Value Range Interpretation Code Description Data Stephanie rce(s) Supporting Document(s) ID Date Data Source [id number] 01/14/2021 03:17:00 PM EDT [facility] [place], [place] [address]MENTAL HEALTH PROGRESS NOTEPATIENT NAME: YARELI HATCH PHYSICIAN: BROOKLYN ONEILL MDAUTHOR: Lana Aquino. DATE: 01/03/21 MR#: [id number] NOTE DATE: 01/14/21 RM#: [id number] TIME: 1523 [...] SIGNED: 01/14/21 Electronically SignedTIME SIGNED: 1523 DYLAN RIBEIRO Name Value Range Interpretation Code Description Data Stephanie rce(s) Supporting Document(s) ID Date Data Source [id number] 01/11/2021 10:27:00 AM EDT [address] HEALTH PROGRESS NOTEPATIENT NAME: YARELI HATCH PHYSICIAN: BROOKLYN ONEILL, MDAUTHOR: Alfred SMITH,MuhammadAPUJA. DATE: 01/03/21 MR#: [id number] NOTE DATE: 01/11/21 RM#: [id number] TIME: 1038 [...] rce(s) Supporting Document(s) ID Date Data Source [id number] 01/10/2021 11:17:00 AM EDT [facility] [address] [address]QX[place]UG HEALTH PROGRESS NOTEPATIENT NAME: YARELI HATCH PHYSICIAN: BROOKLYN ONEILL MDAUTHOR: Lana Aquino. DATE: 01/03/21 MR#: [id number] NOTE DATE: 01/10/21 RM#: 320EVALUATION TIME: 1121 [...] SIGNED: 01/10/21 Electronically SignedTIME SIGNED: 1121 DYLAN RIBEIRO Name Value Range Interpretation Code Description Data Stephanie rce(s) Supporting Document(s) ID Date Data Source [id number] 01/09/2021 03:23:00 PM EDT [address] HEALTH PROGRESS NOTEPATIENT NAME: YARELI HATCH CATSALVADOR PHYSICIAN: BROOKLYN ONEILL MDAUTHOR: Lana Aquino. DATE: 01/03/21 MR#: [id number] NOTE DATE: 01/09/21 RM#: 320EVALUATION TIME: 1527 is a 20-year-old white female.CC/Hx Present Illness"I overdosed"Events Since Last EntryYareli met with treatment team today and she presented overly bright. Shetalked about her bath last night that she took with staff in the [employer]. She expressed excitement regarding this as this [...] ok and due to her growing up ininstitutions it was not her fault. As we [...] SIGNED: 01/09/21 Electronically SignedTIME SIGNED: 1527 DYLAN RBIEIRO Name Value Range Interpretation Code Description Data Stephanie rce(s) Supporting Document(s) ID Date Data Source [id number] 01/09/2021 08:36:00 AM EDT [place] [id number] HEALTH PROGRESS NOTEPATIENT NAME: YARELI HATCH PHYSICIAN: BROOKLYN ONEILL MDAUTHOR: Lana Aquino. DATE: 01/03/21 MR#: [id number] NOTE DATE: 01/09/21 RM#: 320EVALUATION TIME: 09 AddendumSubjectiveIdentificationThiselena is a 20-year-old white female.CC/Hx Present [...] in process and awaitingfor bed availability at [facility].Assessment/PlanDiagnosis1. Suicide attemptStatus Acute2. Major depressive disorderStatus Chronic3. Bipolar affective disorderStatus Chronic4. Borderline personality disorderStatus Chronic5. Obesity, morbidStatus ChronicCoordination of care provided with nursing staffRisk/benefits discussed side effectsADDENDUM: Dylan Aquino on 01/09/21 at 0926progress note is for 01/08/2021ATE SIGNED: 01/09/21 Electronically SignedTIME SIGNED: 908 DYLAN RIBEIRO Name Value Range Interpretation Code Description Data Stephanie rce(s) Supporting Document(s) ID Date Data Source [id number] 01/07/2021 02:35:00 PM EDT [facility] [place] [place] [address] HEALTH PROGRESS NOTEPATIENT NAME: YARELI HATCH PHYSICIAN: BROOKLYN ONEILL MDAUTHOR: Surendra SMITH,P.ADM. DATE: 01/03/21 MR#: [id number] NOTE DATE: 01/07/21 RM#: 320EVALUATION TIME: 1436 is a 20-year-old white female.CC/Hx Present Illness"I overdosed"Events Since Last EntryYareli was seen today along with the instructor wastewater treatment plant, Gloria, and a PAstudent from [facility]. She believes herself to be Romel today. Shestates she is doing well. She expressed her interest in AOT for 6 months. Iinformed the patient that we have talked to Omi Tovar about her interest.Patient states she just want to leave the place and go outside. Patient doesnot have any address to discharge to. She states she would like to be [facility]to [facility]. Patient was informed that there are beds open in [facility] andshe could be transferred there. [...] with Lorraine Hogan and other agencies including [facility] for housing.Will increase her Latuda.Portions of this section were scribed by Shell Ariza on 01/10/21 at 1646DATE SIGNED: 01/10/21 Electronically SignedTIME SIGNED: 1648 BROOKLYN ONEILL MD Name Value Range Interpretation Code Description Data Stephanie rce(s) Supporting Document(s) ID Date Data Source [id number] 01/06/2021 02:26:00 PM EDT [place] [address] PROGRESS NOTEPATIENT NAME: YARELI HATCH PHYSICIAN: BROOKLYN ONEILL MDAUTHOR: Surendra SMITH,P.ADM. DATE: 01/03/21 MR#: [id number] NOTE DATE: 01/06/21 RM#: 320EVALUATION TIME: 1427 is a 20-year-old white female.CC/Hx Present Illness"I overdosed"Events Since Last EntryYareli was seen today along with the instructor wastewater treatment plant, Gloria. Patientwas brought to the ER by rescue squad due to overdose. [facility] [place], which then she was brought to the [facility]. She is on waiting list for [facility] in [place] but isunsure how long will it take. She states she drank a lot of coffee which causedher to be awake whole night and she spent more than 24 hours awake. She gotoverwhelmed and overdosed on Ibuprofen and Prove ntil as she was annoyed by acase manager alliance who was trying to get her sign [...] 01/06 0859Resp 18 01/06 0634Current MedicationsMiscellaneous Read [id number] NANicotine (Nicorette) 2 MG Q2HPRN PRN POCarbamide [...] plan and housing. We are working with [facility] and other housingagencies such as [facility] for supportive housing options.Portions of this section were scribed by Shell Ariza on 01/10/21 at 1643DATE SIGNED: 01/10/21 Electronically SignedTIME SIGNED: 1648 BROOKLYN ONEILL MD Name Value Range Interpretation Code Description Data Stephanie rce(s) Supporting Document(s) ID Date Data Source [id number] 01/04/2021 09:49:00 AM EDT [place] [id number] [place] [address] PSYCHIATRIC ASSESSMENTPATIENT NAME: YARELI HATCH MR#: [id number] PHYSICIAN: AMADA SIMON MDAUTHOR: Amada Simon MD DATE: 01/03/21 #: 3RDHistoryIdentificationPatient is a 20-year-old white female who was brought to [facility] ED by rescuesquad.Chief Complaint"I overdosed"Reason for AdmissionPatient overdosed on Ibuprofen and Proventil. Patient is not sure why she didit, but she also states that it may have been a suicidal attempt. Her sleep isok. Appetite is good. She has a hx of impulse control problem. She has beenfeeling hopelese, helpless and depressed at times. She was living at [facility]. Shehas been been asked by the [facility] not to return back with them, so she is homelessat this time.History of Presenting IllnessPatient was brought to ED by rescue squad due to overdose. [facility], to [facility], which then she was brought to the [facility] building in [facility]. Sheis on the waiting list for [facility] in [place] but is unsure on how long it willtake. Patient has a long history of suicidal attempts, and also has hadnumerous inpatient admissions to this facility and to other facilities throughout [facility].Portions of this section were scribed by Medina Goodson on 01/04/[address] [place] [address] Psych/Medical HistoryPsychiatric HistoryShe has long hx of [...] of Knowledge: awareness of low normal rangeAdditional [id number] white female who was cooperative during the [...] rce(s) Supporting Document(s) ID Date Data Source [id number] 01/03/2021 05:30:00 PM EDT [place] [address]MENTAL HEALTH HISTORY AND PHYSICALPATIENT NAME: YARELI HATCH MR#: [id number] PHYSICIAN: AMADA SIMON MDAUTHOR: Theresa Melchor FLUE CLEANERMaria De JesusC DATE: 01/03/21 RM#: 3RDHistoryChief Complaint/Admit Reason"I overdosed"History of Presenting IllnessThiselena [...] Musculoskeletal, Mario, Endocrine,Neurology, Psych, Allergy/ImmunologyExamVital SignsVital Signs-24 HRS/01/030 1450 1528Temp 98.1 98.1 98.1Pulse 64 64 64Resp 16 16 16B/P 129/73 129/73 129/73B/P MeanPulse Ox 99 99 99O2 DeliveryO2 Flow XmenQrQ7Gagvdinv ExaminationGeneral Appearance no acute distress, conversant, face [...] flat affect, drowsyData ReviewLaboratory DataRecent Labs-48 hours01/02 06/530922 1602ChemistrySodium (136 - 147 mmol/L) 144Potassium (3.5 [...] CloudyUrine pH (5.0 - 8.0) 6.0Ur Specific Langdon (1.010 - 1.025) 1.033 HUrine Protein (Negative) 2+Urine Ketones (NEGATIVE) TraceUrine Blood (NEGATIVE) NegativeUrine Nitrite (Negative) NegativeUr Bilirubin Confirm (NEGATIVE) NegativeUrine Urobilinogen (0.2 - 1.0 mg/dL) 1.0Urine Leukocytes (Negative) NegativeUrine RBC (NONE SEEN) 0-2 RBCs/HPFUrine WBC (NONE SEEN) 0-2 WBCs/HPFUrine Crystals (NONE SEEN) MODERATE AMORPHOUSUrine Bacteria (NONE SEEN) ModerateUrine Glucose (NEGATIVE) Aamkwrld71/653411LbxlubldUMAPD-78 (CORDELL) (NEGATIVE) OARXTSVGSizargdavijz12/24 1602 URINE,CC: Urine Culture - RESAssessment/PlanDiagnosis/Problem1. Suicide attemptStatus Acute2. Major depressive disorderStatus Chronic3. Bipolar affective disorderStatus Chronic4. Borderline personality disorderStatus Chronic5. Obesity, morbidStatus Outreach Liaison nicAdditional NotesWill defer psychiatric problems to our psychiatry teamPatient denies medical issues at present and she has been cleared medically.Resuscitation status Full codePlan discussed with patientCase discussed with nursing staffCopies ToCopies to Family Provider: NO,ONEDATE SIGNED: 01/03/21 Electronically SignedTIME SIGNED: 1802 THERESA MELCHOR Name Value Range Interpretation Code Description Data Stephanie rce(s) Supporting Document(s) ID Date Data Source [id number] 01/03/2021 12:52:00 PM EDT [facility] Name Value Range Interpretation Code Description Data Stephanie rce(s) Supporting Document(s) LCOVID-19, CORDELL NEGATIVE [facility] This lab was ordered by [facility] and reported by [facility]. ID Date Data Source [id number] 01/03/2021 01:43:00 PM EDT [facility] Name Value Range Interpretation Code Description Data Stephanie rce(s) Supporting Document(s) COVID-19, CORDELL NEGATIVE NEGATIVE [facility] Methodology: Isothermal Nucleic Acid Amp [...] Emergency Use Authorization. ID Date Data Source [id number] 01/02/2021 04:50:00 PM EDT [facility] [place] Name Value Range Interpretation Code Description Data Stephanie rce(s) Supporting Document(s) PCP VISTA NEG NEGATIVE [facility] MINIMUM LEVEL OF DETECTION IS 25 ng/ml BENZODIAZEPINES NEG NEGATIVE [facility] al MINIMUM LEVEL OF DETECTION IS 200 ng/ml COCAINE VISTA NEG NEGATIVE [facility] MINIMUM LEVEL OF DETECTION IS 300 ng/ml AMPHETAMINES NEG NEGATIVE [facility] al MINIMUM LEVEL OF DETECTION IS 1000 ng/ml BARBITURATES NEG NEGATIVE [facility] al CUTOFF CONCENTRATION IS 200 ng/ml CANNABINOIDS NEG NEGATIVE [facility] al CUTOFF CONCENTRATION IS 50 ng/ml METHADONE VISTA NEG NEGATIVE [facility] al MINIMUM LEVEL OF DETECTION IS 300 ng/ml OPIATE VISTA NEG NEGATIVE [facility] MINIMUM DETECTION LEVEL IS 300 ng/ml ID Date Data Source [id number] 01/02/2021 04:36:00 PM EDT [facility] [place] Urine Bilirubin test must be confirmed w ith Ictotest Method Urine Bilirubin test must be confirmed w ith Ictotest Method Name Value Range Interpretation Code Description Data Stephanie rce(s) Supporting Document(s) URINE COLOR DK YELLOW [facility] UAPR Cloudy [facility] UGLU Negative NEGATIVE [facility] URINE BILIRUBIN Negative NEGATIVE [facility] UKET Trace NEGATIVE [facility] USG 1.033 1.010-1.025 H [facility] UBLO Negative NEGATIVE [facility] UpH 6.0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 EntryYareli was seen today along with the instructor wastewater treatment plant, Gloria. She didnot allow the students to [...] rce(s) Supporting Document(s) ID Date Data Source [id number] 11/28/2020 04:08:00 PM EDT [place] [address]MENTAL HEALTH PROGRESS NOTEPATIENT NAME: DENISSE HATCHYLA CATTENGIOVANNY PHYSICIAN: BROOKLYN ONEILL MDAUTHOR: Surendar SMITH,P.ADM. DATE: 10/31/20 MR#: [id number] NOTE DATE: 11/28/20 RM#: 310EVALUATION TIME: 1624 is 20-year-old female, currently single, past psych historyof bipolar disorder, poor impulse control and borderline personality disorderChief complaint concern about her ability to maintain safety and possiblesuicidal thoughtsEvents Since Last EntryYareli was seen today along with the instructor wastewater treatment plant, Gloria, she didnot allow the student to [...] (Desyrel) 50 MG QHSPRN PRN POExaminationMusculoskeletalGait normalAdditional notesYareli continues to be hostile. She takes on [...] and Lorraine to arrange a meeting with [facility] to discuss aboutany other option available for her. patient has refused for any medicationchanges.Portions of this section were scribed by Shell Ariza on 11/28/20 at 1622DATE SIGNED: 11/28/20 Electronically SignedTIME SIGNED: 1625 BROOKLYN ONEILL MD Name Value Range Interpretation Code Description Data Stephanie rce(s) Supporting Document(s) ID Date Data Source [id number] 11/27/2020 03:38:00 PM EDT [address] HEALTH PROGRESS NOTEPATIENT NAME: YARELI HATCH PHYSICIAN: BROOKLYN ONEILL MDAUTHOR: Surendra SMITH,P.ADM. DATE: 10/31/20 MR#: [id number] NOTE DATE: 11/27/20 RM#: 310EVALUATION TIME: 1539 is 20-year-old female, currently single, past psych historyof bipolar disorder, poor impulse control and borderline personality disorderChief complaint concern about her ability to maintain safety and possiblesuicidal thoughtsEvents Since Last EntryYareli was seen today along with the instructor wastewater treatment plant, Gloria, and a PAstudent from [facility]. She is doing well. I was [...] rce(s) Supporting Document(s) ID Date Data Source [id number] 11/26/2020 02:11:00 PM EDT [facility] [place], [place] [address]MENTAL HEALTH PROGRESS NOTEPATIENT NAME: YARELI HATCH CATTENGIOVANNY PHYSICIAN: BROOKLYN ONEILL MDAUTHOR: Surendra SMITH,P.ADM. DATE: 10/31/20 MR#: [id number] NOTE DATE: 11/26/20 RM#: 310EVALUATION TIME: 1411 [facility] [id number] is 20-year-old female, currently single, past psych historyof bipolar disorder, poor impulse control and borderline personality disorderChief complaint concern about her ability to maintain safety and possiblesuicidal thoughtsEvents Since Last EntryYareli was seen today along with the instructor wastewater treatment plant, Gloria, and a PAstudent from [facility]. She was irritated and angry today. [...] will be making SPOA referrals to other formerly [facility] also. Yareli continued to express her anger, [...] We are in pursuit of an appropriate detention or a safe dischargeoption for her. Ji Ng is coming here tomorrow, to do an intake for afamily half-way for her. Will also consider increasing her Zyprexa.Portions of this section were scribed by Shell Ariza on 11/26/20 at 1503DATE SIGNED: 11/26/20 Electronically SignedTIME SIGNED: 150 BROOKLYN ONEILL MD Name Value Range Interpretation Code Description Data Stephanie rce(s) Supporting Document(s) ID Date Data Source [id number] 11/25/2020 02:44:00 PM EDT [address] HEALTH PROGRESS NOTEPATIENT NAME: MAMIEYARELI [facility]AL[facility] PHYSICIAN: BROOKLYN ONEILL MDAUTHOR: Surendra SMITH,P.ADM. DATE: 10/31/20 MR#: [id number] NOTE DATE: 11/25/20 RM#: 310EVALUATION TIME: 1444 is 20-year-old female, currently single, past psych historyof bipolar disorder, poor impulse control and borderline personality disorderChief complaint concern about her ability to maintain safety and possiblesuicidal thoughtsEvents Since Last EntryYareli was seen today along with the instructor wastewater treatment plant, Gloria, and a PAstudent from [facility]. She is doing the same. She does not show anysignificant improvement. Patient was informed that we are applying for [facility] for family care. I was informed by [...] it". Discussion about her diagnosis came up andcecil was educated about her treatment resistant disorder. [...] she has a history of being in [facility] in her childhood.Portions of this [...] further hospitalization. Gloria is making referral to [facility] in multiple counties for [facility].Portions of this section were scribed by Shell Ariza on 11/25/20 at 1926DATE SIGNED: 11/25/20 Electronically SignedTIME SIGNED: 1934 BROOKLYN ONEILL MD Name Value Range Interpretation Code Description Data Stephanie rce(s) Supporting Document(s) ID Date Data Source [id number] 11/22/2020 10:16:00 AM EDT [facility] [place], [place] [address]MENTAL HEALTH PROGRESS NOTEPATIENT NAME: YARELI HATCH CATTENGIOVANNY PHYSICIAN: BROOKLYN ONEILL MDAUTHOR: Colleen SMITH,DhruvADM. DATE: 10/31/20 MR#: [id number] NOTE DATE: 11/22/20 RM#: 310EVALUATION TIME: 1018 [...] to go and she might go to [facility] down the road as well.Discussed with the instructor wastewater treatment plant about treatment plan that patient iscurrently being [...] rce(s) Supporting Document(s) ID Date Data Source [id number] 11/21/2020 01:41:00 PM EDT [address] HEALTH PROGRESS NOTEPATIENT NAME: YARELI [facility]ATCH [facility] PHYSICIAN: BROOKLYN ONEILL MDAUTHOR: Surendra SMITH,P.ADM. DATE: 10/31/20 MR#: [id number] NOTE DATE: 11/21/20 RM#: 310EVALUATION TIME: 1356 is 20-year-old female, currently single, past psych historyof bipolar disorder, poor impulse control and borderline personality disorderChief complaint concern about her ability to maintain safety and possiblesuicidal thoughtsEvents Since Last EntryDenissesom was seen today. She very much used [...] unable to be placed in many neighboring counties such [facility] Her [facility] remains guarded. She denied [...] be an appropriate candidate for 24hours supervised detention. She is not making progress. Her providers are alsoworking on finding a different placement for her. Will increase her Zyprexa andpropranolol.Portions of this section were scribed by Shell Ariza on 11/21/20 at 1357DATE SIGNED: 11/21/20 Electronically SignedTIME SIGNED: 1356 BROOKLYN ONEILL MD Name Value Range Interpretation Code Description Data Stephanie rce(s) Supporting Document(s) ID Date Data Source [id number] 11/20/2020 02:02:00 PM EDT [address] HEALTH PROGRESS NOTEPATIENT NAME: YARELI HATCH CATTENGIOVANNY PHYSICIAN: BROOKLYN ONEILL MDAUTHOR: Surendra SMITH,P.ADM. DATE: 10/31/20 MR#: [id number] NOTE DATE: 11/20/20 RM#: 310EVALUATION TIME: 1403 is 20-year-old female, currently single, past psych historyof bipolar disorder, poor impulse control and borderline personality disorderChief complaint concern about her ability to maintain safety and possiblesuicidal thoughtsEvents Since Last EntryYareli was seen today along with the instructor wastewater treatment plant, Gloria, and a PAstudent from [facility]. Patient states she is very stressed. [...] to "fight the [place]". [facility] [employer] as her primary school and then she pursued with alternatives[employer] for her high school. She reports she has been tested for low IQ in earlyage.Topic of her placement came up. Patient states [facility]. She stated she has been [...] Patient states she was [facility] out from [facility]; hence, she does not wish to [...] rce(s) Supporting Document(s) ID Date Data Source [id number] 11/19/2020 01:53:00 PM EDT [facility] [address] PROGRESS NOTEPATIENT NAME: YARELI HATCH CATTENGIOVANNY PHYSICIAN: BROOKLYN ONEILL MDAUTHOR: Surendra SMITH,P.ADM. DATE: 10/31/20 MR#: [id number] NOTE DATE: 11/19/20 RM#: 310EVALUATION TIME: 1354 is 20-year-old female, currently single, past psych historyof bipolar disorder, poor impulse control and borderline personality disorderChief complaint concern about her ability to maintain safety and possiblesuicidal thoughtsEvents Since Last EntryYareli was seen today along with the instructor wastewater treatment plant, Gloria, and a PAstudent from [facility]. Patient expressed her irritation and statedthat [...] inquireabout the AOT and her placement in [place]. She expressed her irritationrelated to her placement issue. She stated, "you do not have to take care of me". The patient states if somehow, she gets AOT and is placed in [place], itwill still not work. The patient also [...] wait and then to get into a detention. She has difficultyrealizing the fact it is [...] also has the meeting with state like [facility]. Patientis not happy about it. I told her this is important because they are the majorresource, and they will guide us. She is not making progress.Portions of this section were scribed by Shell Ariza on 11/19/20 at 1820DATE SIGNED: 11/19/20 Electronically SignedTIME SIGNED: 1819 BROOKLYN ONEILL MD Name Value Range Interpretation Code Description Data Stephanie rce(s) Supporting Document(s) ID Date Data Source [id number] 11/18/2020 02:32:00 PM EDT [address] [address]KYLKEP HEALTH PROGRESS NOTEPATIENT NAME: YARELI HATCH CATSALVADOR PHYSICIAN: BROOKLYN ONEILL MDAUTHOR: Surendra SMITH,P.ADM. DATE: 10/31/20 MR#: [id number] NOTE DATE: 11/18/20 RM#: 310EVALUATION TIME: 1432 is 20-year-old female, currently single, past psych historyof bipolar disorder, poor impulse control and borderline personality disorderChief complaint concern about her ability to maintain safety and possiblesuicidal thoughtsEvents Since Last EntryYareli was seen today along with the instructor wastewater treatment plant, Gloria, and a PAstudent from [facility]. She is doing well today. She [...] be send to [facility] and not to [facility]. Patient admitsto not having any compassion for [...] restraints over the weekend and is on zud-ei-owjedmltaeyguy because she put a pillow over her [...] rce(s) Supporting Document(s) ID Date Data Source [id number] 11/17/2020 11:21:00 PM EDT [address] [address]KDLHSPBE NOTE FOLLOW UPPATIENT NAME: YARELI HATCH PHYSICIAN: BROOKLYN ONEILL MDAUTHOR: Dori SMITH,Lea. DATE: 10/31/20 MR#: [id number] NOTE DATE: 11/17/20 RM#: 310EVALUATION TIME: 2323 [...] rce(s) Supporting Document(s) ID Date Data Source [id number] 11/15/2020 02:15:00 PM EDT [facility] [place] [address] HEALTH PROGRESS NOTEPATIENT NAME: YARELI HATCH CATSALVADOR PHYSICIAN: BROOKLYN ONEILL MDAUTHOR: Surendra SMITH,P.ADM. DATE: 10/31/20 MR#: [id number] NOTE DATE: 11/15/20 RM#: 310EVALUATION TIME: 1416 is 20-year-old female, currently single, past psych historyof bipolar disorder, poor impulse control and borderline personality disorderChief complaint concern about her ability to maintain safety and possiblesuicidal thoughtsEvents Since Last EntryYareli was seen today along with the instructor wastewater treatment plant, and a PA [facility]fr[facility]. She is in a better mood today. [...] treatment plan. we are awaiting information from [facility] for placement effortsPortions of this section were scribed by Shell Ariza on 11/15/20 at 1415DATE SIGNED: 11/15/20 Electronically SignedTIME SIGNED: 1417 BROOKLYN ONEILL MD Name Value Range Interpretation Code Description Data Stephanie rce(s) Supporting Document(s) ID Date Data Source [id number] 11/14/2020 07:41:00 PM EDT [place], [place] [address]MENTAL HEALTH PROGRESS NOTEPATIENT NAME: MAMIEYARELI CATTENGIOVANNY PHYSICIAN: BROOKLYN ONEILL MDAUTHOR: Surendra SMITH,P.ADM. DATE: 10/31/20 MR#: [id number] NOTE DATE: 11/14/20 RM#: 310EVALUATION TIME: 1948 is 20-year-old female, currently single, past psych historyof bipolar disorder, poor impulse control and borderline personality disorderChief complaint concern about her ability to maintain safety and possiblesuicidal thoughtsEvents Since Last EntryYareli was seen today with instructor wastewater treatment plant [place] and a PA student. Sheseems to be in better mood today without any hostility or irritableness. Sheasked the same question, what is happening to her AOT. We advised her that theAOT is being pursued and Lorraine is checking with [facility] and she will get back to. Ever since Zyprexa has been added her mood has improved. She wants to gothe community residence in [place]. The problem remains the uncertainty aboutwhen the [...] to pursue AOT as well as with [facility].Portions of this section were scribed by Shell Ariza on 11/14/20 at 1941DATE SIGNED: 11/14/20 Electronically SignedTIME SIGNED: 1948 BROOKLYN ONEILL MD Name Value Range Interpretation Code Description Data Stephanie rce(s) Supporting Document(s) ID Date Data Source [id number] 11/13/2020 04:22:00 PM EDT [place], [place] [address]MENTAL HEALTH PROGRESS NOTEPATIENT NAME: YARELI HATCH [facility] CENTERTENGIOVANNY PHYSICIAN: BROOKLYN ONEILL MDAUTHOR: Surendra SMITH,P.ADM. DATE: 10/31/20 MR#: [id number] NOTE DATE: 11/13/20 RM#: 310EVALUATION TIME: 1625 is 20-year-old female, currently single, past psych historyof bipolar disorder, poor impulse control and borderline personality disorderChief complaint concern about her ability to maintain safety and possiblesuicidal thoughtsEvents Since Last EntryYareli was seen today with the instructor wastewater treatment plant. She continues to notshow any insight. For [...] an opening in a community residence in [place]. Her Thorazinehas been changed to 300 mg [...] rce(s) Supporting Document(s) ID Date Data Source [id number] 11/12/2020 08:02:00 PM EDT [address] HEALTH PROGRESS NOTEPATIENT NAME: YARELI HATCH CATSALVADOR PHYSICIAN: BROOKLYN ONEILL MDAUTHOR: Surendra SMITH,P.ADM. DATE: 10/31/20 MR#: [id number] NOTE DATE: 11/12/20 RM#: 310EVALUATION TIME: 2007 is 20-year-old female, currently single, past psych historyof bipolar disorder, poor impulse control and borderline personality disorderChief complaint concern about her ability to maintain safety and possiblesuicidal thoughtsEvents Since Last EntryL[facility]-Eastkaylsohail told me that she is transitioning to a male, so she wants to be calledAnthony. She was seen with Gloria. She continued to express concerned that thenurses are not called her Rigo as per her concern and address her Yareli.She continued to express her frustration and anger. I explained to her that bano needs to express her intention to people [...] for her. She has been approved for communityresidence in [place]. Will also work on her coping skill building.Portions of this section were scribed by Shell Ariza on 11/12/20 at 2002DATE SIGNED: 11/12/20 Electronically SignedTIME SIGNED: 2008 BROOKLYN ONEILL MD Name Value Range Interpretation Code Description Data Stephanie rce(s) Supporting Document(s) ID Date Data Source [id number] 11/12/2020 04:37:00 PM EDT [address] [address]LPCMUPJI NOTE FOLLOW UPPATIENT NAME: YARELI HATCH PHYSICIAN: BROOKLYN ONEILL MDAUTHOR: Jacque Chowdhury. DATE: 10/31/20 MR#: [id number] NOTE DATE: 11/12/20 RM#: 310EVALUATION TIME: 1641 [...] order this.DATE SIGNED: 11/12/20 Electronically SignedTIME SIGNED: 164 THERESA PRASAD COOPER Name Value Range Interpretation Code Description Data [facility] rce(s) Supporting Document(s) ID Date Data Source [id number] 11/11/2020 07:43:00 AM EDT [facility] Ex[facility] Number: [id number] Reported By: Maria De Jesus KIM M.D. Signed By: Rakan KIM M.D. Name Value Range Interpretation Code Description Data [facility] rce(s) Supporting Document(s) ID Date Data Source [id number] 11/10/2020 11:20:00 AM EDT [address] HEALTH PROGRESS NOTEPATIENT NAME: YARELI HATCH PHYSICIAN: BROOKLYN ONEILL MDAUTHOR: Colleen SMITH,DhruvADM. DATE: 10/31/20 MR#: [id number] NOTE DATE: 11/10/20 RM#: 310EVALUATION TIME: 1122 is 20-year-old female, currently single, past psych [...] personality disorderDATE SIGNED: 11/10/20 Electronically SignedTIME SIGNED: 1122 BOGDAN MACIAS MD Name Value Range Interpretation Code Description Data Stephanie rce(s) Supporting Document(s) ID Date Data Source [id number] 11/09/2020 11:20:00 AM EDT [facility] HEALTH PROGRESS NOTEPATIENT NAME: YARELI HATCH CATSALVADOR PHYSICIAN: BROOKYLN ONEILL MDAUTHOR: Colleen SMITH,DhruvADM. DATE: 10/31/20 MR#: [id number] NOTE DATE: 11/09/20 RM#: 310EVALUATION TIME: 112 Since Last EntryPatient is 20-year-old female, currently [...] rce(s) Supporting Document(s) ID Date Data Source [id number] 11/08/2020 01:30:00 PM EDT [place] [address]MENTAL HEALTH PROGRESS NOTEPATIENT NAME: YARELI HATCH CATTENDING PHYSICIAN: BROOKLYN ONEILL MDAUTHOR: Surendra SMITH,P.ADM. DATE: 10/31/20 MR#: [id number] NOTE DATE: 11/08/20 RM#: 310EVALUATION TIME: 1334 Since Last EntryYareli was seen today along with the instructor wastewater treatment plant, Gloria, and a PAstudent from [facility]. She apologized for not coming to [...] and not thinkingcompletely. Lorraine was discussing with [facility] about further treatment options forher as Lorraine [...] rce(s) Supporting Document(s) ID Date Data Source [id number] 11/07/2020 03:12:00 PM EDT [address] [address]IFGOCI HEALTH PROGRESS NOTEPATIENT NAME: YARELI HATCH PHYSICIAN: BROOKLYN ONEILL MDAUTHOR: Surendra SMITH,P.ADM. DATE: 10/31/20 MR#: [id number] NOTE DATE: 11/07/20 RM#: 310EVALUATION TIME: 151 [...] rce(s) Supporting Document(s) ID Date Data Source [id number] 11/06/2020 01:30:00 PM EDT [address] HEALTH PROGRESS NOTEPATIENT NAME: YARELI HATCH PHYSICIAN: BROOKLYN ONEILL MDAUTHOR: Surendra SMITH,P.ADM. DATE: 10/31/20 MR#: [id number] NOTE DATE: 11/06/20 RM#: 310EVALUATION TIME: 1330 Since Last EntryYareli was seen today along with the instructor wastewater treatment plant, Gloria, and a PAstudent from [facility]. She continues to be depressed. She is inbetter mood today. She was cooperative durin g the session. She answered all myquestions. Patient states she is forced to talk. She states she is barely ableto manage herself. When I certified alcohol and drug counselor Yareli talk about her life and [...] at 1454DATE SIGNED: 11/06/20 Electronically SignedTIME SIGNED: 1459 BROOKLYN ONEILL MD Name Value Range Interpretation Code Description Data Stephanie rce(s) Supporting Document(s) ID Date Data Source [id number] 11/05/2020 03:44:00 PM EDT [address] [address]CEMHAJ HEALTH PROGRESS NOTEPATIENT NAME: YARELI HATCH CATSALVADOR PHYSICIAN: BROOKLYN ONEILL MDAUTHOR: Surendra SMITH,P.ADM. DATE: 10/31/20 MR#: [id number] NOTE DATE: 11/05/20 RM#: 310EVALUATION TIME: 1546 Since Last EntryYareli was seen today along with the instructor wastewater treatment plant, Gloria, and a PAstudent from [facility]. She continues to be depressed. She [...] rce(s) Supporting Document(s) ID Date Data Source [id number] 11/04/2020 09:38:00 AM EDT [address] [address]IEANLVV NAME: YARELI HATCH#: [id number] PHYSICIAN: BROOKLYN ONEILL MD ADM. DATE: 10/31/20PROGRESS NOTE DATE: 11/04/20 .#: 310ACCOUNT #: [id number] NOTEIDENTIFICATION: A 20-year-old female with schizoaffective disorder.VITAL SIGNS: Temperature of 97, pulse of 101, respirations 19, blood kyrqlhzs635/79.SUBJECTIVE: The patient came to the interview room. [...] atthis point.Date Dictated: 11/04/2020 09:20:11Date Transcribed: 11/04/2020 08:38:16JV/PUSRuchib #: [id number]: 11/04/20919 Electronically SignedTRANS:11/04/20937 FILI CANELA MDTRANS BY:IATDATE SIGNED:11/04/20REPORT COPY TO: Name Value Range Interpretation Code Description Data Stephanie rce(s) Supporting Document(s) ID Date Data Source [id number] 11/03/2020 11:54:00 AM EDT [place], [place] [address]PATIENT NAME: DENISSE HATCHSOM Jensen#: [id number] PHYSICIAN: BROOKLYN ONEILL MD ADM. DATE: 10/31/20PROGRESS NOTE DATE: 11/03/20 .#: 310ACCOUNT #: [id number] NOTEIDENTIFICATION: A 20-year-old female with schizoaffective disorder.VITAL [...] Dictated: 11/03/2020 09:56:45Date Transcribed: 11/03/2020 10:54:25JV/PUSDelfino #: [id number]: 11/03/20 0956 Electronically SignedTRANS:11/03/20 1154 FILI CANELA MDTRANS BY:KIERRA SIGNED:11/04/20REPORT COPY TO: Name Value Range Interpretation Code Description Data Stephanie rce(s) Supporting Document(s) ID Date Data Source [id number] 11/01/2020 10:43:00 AM EDT [place], [place] [address]PATIENT NAME: MAMIEYARELI Patel#: [id number] PHYSICIAN: BROOKLYN ONEILL MD ADM. DATE: 10/31/20ACCOUNT #: [id number] .#: [id number] ASSESSMENTIDENTIFICATION: A 20-year-old female with long history of schizoaffectivedisorder, cluster B personality disorder.CHIEF COMPLAINT: "I am suicidal."REASON FOR ADMISSION: Suicidal ideation.HISTORY OF PRESENT ILLNESS: According to the records and our interview, thepatient was discharged from our service 2 days ago, she was discharged lwancu78:00 in the morning. She was back in [...] She is living with a friendhere in [place]. The patient stated that she is a [...] kimberlyn.Date Dictated: 11/01/2020 10:19:56Date T ranscribed: 11/01/2020 09:43:52LEIGH/Erin #: [id number]: 11/01/20 1019 Electronically SignedTRANS:11/01/20 1043 FILI CANELA MDTRANS BY:KIERRA SIGNED:11/02/20REPORT COPY TO: Name Value Range Interpretation Code Description Data Stephanie rce(s) Supporting Document(s) ID Date Data Source [id number] 10/31/2020 07:04:00 PM EDT [facility] [address] [address]ISWCKJN AND PHYSICALPATIENT NAME: YARELI HATCH MR#: [id number] PHYSICIAN: BOGDAN MACIAS MDAUTHOR: Theresa Chowdhury DATE: 10/31/20 RM#: 3RDHISTORY & PHYSICAL DATE: 10/31/20 : 00EVALUATION TIME: 1906HistoryChief Complaint/Admit ReasonDepression anxiety and suicidal ideationHistory of Presenting IllnessPatient is a 20-year-old morbidly obese white female [facility] ideation depression anxiety. She [...] 17; Temp 98.3; Pulse Ox 96% ; [id number] ExaminationGeneral Appearance no acute distress, afebrile, alertHead [...] rce(s) Supporting Document(s) ID Date Data Source [id number] 10/29/2020 10:26:00 PM EDT [facility] Name Value Range Interpretation Code Description Data Stephanie rce(s) Supporting Document(s) COVID-19, CORDELL NEGATIVE NEGATIVE N [facility] Methodology: Isothermal Nucleic Acid Amp [...] Emergency Use Authorization. ID Date Data Source [id number] 10/29/2020 09:38:25 PM EDT [facility] Name Value Range Interpretation Code Description Data Stephanie rce(s) Supporting Document(s) Progress Note [facility] [id number] lbm [file] [id number]= ID Date Data Source [id number] 10/29/2020 06:37:00 PM EDT [facility] Name Value Range Interpretation Code Description Data Stephanie rce(s) Supporting Document(s) SALICYLATE < 1.7 mg/dL 0.0-20.0 N [facility] ID Date Data Source [id number] 10/29/2020 06:37:00 PM EDT [facility] Name Value Range Interpretation Code Description Data Stephanie rce(s) Supporting Document(s) ACETAMINOPHEN > 2.0 ug/mL 0-30 [facility] ID Date Data Source [id number] 10/29/2020 06:37:00 PM EDT [facility] Name Value Range Interpretation Code Description Data Stephanie rce(s) Supporting Document(s) HCG QUAL SERUM Negative Negative N [facility] ID Date Data Source [id number] 10/29/2020 06:37:00 PM EDT [facility] Name Value Range Interpretation Code Description Data Stephanie rce(s) Supporting Document(s) ETOH 0.000 g/dL NONE DETECTED N [facility] l NONE DETECTED ID Date Data Source [id number] 10/29/2020 06:37:00 PM EDT [facility] Name Value Range Interpretation Code Description Data Stephanie rce(s) Supporting Document(s) GLU 109 mg/dL 70-110 [facility] Patients taking Sulfasalazine may have f alsely depressedGlucose levels. Patients taking Sulfapyridine may havefalsely elevated Glucose levels. Patients should be drawnfor Glucose before the initial administration of eitherdrug. BUN 17 mg/dL 7-23 [facility] CRE 0.658 mg/dL 0.500-1.300 [facility] GFR > 60 mL/min [facility] CHLORIDE 111 mmol/L 99-110 [facility] NA 142 mmol/L 136-147 [facility] POTASSIUM 4.1 mmol/L 3.5-5.1 [facility] TCO2 26 mmol/L 20-33 [facility] ANION GAP 9.1 10.0-20.0 [facility] CA 8.9 mg/dL 8.3-10.7 [facility] ALKALINE PHOS 121 U/L 45-117 [facility] TP 7.5 g/dL 6.0-7.8 [facility] ALB 3.8 g/dL 3.5-5.0 [facility] ESRD Dialysis patient Albumin reference range: 2.9-4.4 g/dL GL 3.7 g/dL 2.3-3.5 H [facility] A/G 1.0 1.0-2.5 [facility] T. BILIRUBIN 0.2 mg/dL 0.1-1.1 [facility] [place] Total Bilirubin is n ot recommended forpatients undergoing treatment with eltrombopag (Promacta)due to the potential for falsely elevated results. ALTI 49 U/L 6-54 [facility] Patients taking Sulfasalazine and/or Sul fapyridine may havefalsely depressed ALT levels. Patients should be drawn forALT before the initial administration of either drug. AST 26 U/L 6-38 [facility] Patients taking Sulfasalazine and/or Sul fapyridine may havefalsely depressed AST levels. Patients should be drawn forAST before the initial administration of either drug. ID Date Data Source [id number] 10/29/2020 05:54:00 PM EDT [facility] Name Value Range Interpretation Code Description Data Stephanie rce(s) Supporting Document(s) WBC 7.63 x10E3/uL 4.0-10.5 [facility] RBC 4.24 x10E6/uL 4.20-5.40 [facility] Hemoglobin 12.8 g/dL 12.0-16.0 [facility] Hematocrit 37.6 % 37.0-47.0 [facility] MCV 88.7 fL 81.0-99.0 [facility] MCH 30.2 pg 27.0-31.0 [facility] MCHC 34.0 g/dL 32.7-35.6 [facility] RDW 12.3 % 11.5-14.0 [facility] Platelet count 211 x10E3/uL 150-450 [facility] MPV 9.6 fl 6.9-9.5 [facility] Neutrophils 57.8 % 34-64 [facility] Lymphocytes 32.9 % 25-45 [facility] Monocytes 7.2 % 1.7-10.6 [facility] Eosinophils 1.6 % 0.4-7.0 [facility] Basophils 0.1 % 0.1-2.0 [facility] Imm. Gran. 0.4 % 0.1-2.0 [facility] Abs. Neutro. 4.41 x10E3/uL 1.2-7.6 [facility] Abs. Lymph. 2.51 x10E3/uL 1.0-3.5 [facility] Abs. [place]. 0.55 x10E3/uL 0.1-1.0 [facility] Abs. Eosin. 0.12 x10E3/uL 0.1-0.7 [facility] Abs. Baso. 0.01 x10E3/uL 0.0-0.1 N [facility] l Abs. Imm. Gran. 0.03 x10E3/uL 0.0-0.1 [facility] spital ANRBC% 0 % 0 [facility] ID Date Data Source [id number] 10/29/2020 06:28:00 PM EDT [facility] Name Value Range Interpretation Code Description Data Stephanie rce(s) Supporting Document(s) PCP VISTA NEG NEGATIVE [facility] MINIMUM LEVEL OF DETECTION IS 25 ng/ml BENZODIAZEPINES NEG NEGATIVE [facility] al MINIMUM LEVEL OF DETECTION IS 200 ng/ml COCAINE VISTA NEG NEGATIVE [facility] MINIMUM LEVEL OF DETECTION IS 300 ng/ml AMPHETAMINES NEG NEGATIVE [facility] al MINIMUM LEVEL OF DETECTION IS 1000 ng/ml BARBITURATES NEG NEGATIVE [facility] al CUTOFF CONCENTRATION IS 200 ng/ml CANNABINOIDS NEG NEGATIVE [facility] al CUTOFF CONCENTRATION IS 50 ng/ml METHADONE VISTA NEG NEGATIVE [facility] al MINIMUM LEVEL OF DETECTION IS 300 ng/ml OPIATE VISTA NEG NEGATIVE [facility] MINIMUM DETECTION LEVEL IS 300 ng/ml ID Date Data Source [id number] 10/29/2020 05:57:00 PM EDT [facility] Name Value Range Interpretation Code Description Data Stephanie rce(s) Supporting Document(s) URINE COLOR Yellow [facility] UAPR Turbid [facility] UGLU Negative NEGATIVE [facility] URINE BILIRUBIN Negative NEGATIVE [facility] al UKET Negative NEGATIVE [facility] USG 1.024 1.010-1.025 [facility] UBLO Negative NEGATIVE [facility] UpH 7.0 5.0-8.0 [facility] UPRO Negative Negative [facility] UUB 1.0 mg/dL 0.2-1.0 [facility] UNIT Negative Negative [facility] ULEU Negative Negative [facility] ID Date Data Source [id number] 10/31/2020 10:31:00 AM EDT [facility] Physician DocumentationClLeticia Hinkle edical CenterName: Yareli AdamelAge: 20 yrsSex: FemaleDOB: 2000MRN: [id number] Date: 10/29/2020Time: 17:31Account#: [id number] MD:ED Physician Alissa العلي Summary:10/31/20 08:52Hospitalization OrderedHospitalization [...] presents to ER via [facility] xs6pdnb complaints of Psych Problem.19:29 Patient comes the ER today for mental health evaluation. Patient was hz0phee in the ER for mental health on [...] exhibiting self-injurious behavior in the ER not yc5cnhxjpvhmg to verbal de-escalation requiring chemical sedation. Averbal order was given for B-52 while I was busy with another issue.When I went to put the order in the computer, Haldol allergy poppedup however the medication was already given by the nurse. Patientclosely monitored for any evidence of allergic reaction..06:46 Data reviewed: vital signs, nurses notes, lab test result(s). ED wo4sbkgpm: Care is endorsed to Dr. العلي at [...] continued to note aggressive behavior and started jv9cifhqe verbal threats to staff including threatening to [...] 19:28 :35 Order name: CMP; Complete Time: ::35 Order name: ETOH; Complete Time: ::35 Order name: Salicylate Level; Complete Time: 19:28 :35 Order name: Serum HCG Qualitative; Complete Time: 19::35 Order name: Triage - Drug Screen; Complete Time: 19:28 :35 Order name: UA; Complete Time: 19:28 :02 Order name: EKG in Patient's Room :26 Order name: COVID-19 PROF; Complete Time: 04:14EQFF29:35 Order name: Diet - Mental Health Tray (call dietary); Complete Time: tlm21::35 Order name: Belongings List; Complete Time: 09:37 :35 Order name: Document Weight and Height for BMI; Complete Time: 09:37 :35 Order name: Mental Health Level 3; Complete Time: 09:37 :35 Order name: VS q shift; Complete Time: 21:08 :29 Order name: Medically Cleared for Eval by-Psychosocial, Motivational Speaker th4(.PSA); Complete Time: 20:02 Order name: EKG.; Complete Time: 22:08 tp5:24 Order name: Mental Health Level 4; Complete Time: 09:2 9 :54 Order name: Restrain Patient; Complete Time: 21:54 lb3Gasxfwflr Medications:10/2018:54 Drug: Seroquel - QUEtiapine 25 mg [quetiapine 25 mg tablet (1 tabs)] wy2Iwjwy: PO;22:08 Follow up: Response: No adverse reaction tp204/2104:38 Drug: B52 IM - (LORazepam 2 mg, diphenhydrAMINE 50 mg, Haloperidol hj6Byijumy 5 mg) Route: IM; Site: right vastus [...] diphenhydrAMINE 50 mg [diphenhydramine 50 mg/mL injection zb9ymgntszu (1 mL)] {Note: given for severe anxiety.} [...] 20 mg [ziprasidone 20 mg/mL (final concentration) xr9tqctozzbknwto solution (1 mL)] Route: IM; Site: right [...] Rhythm is regular, Normal Sinus Rhythm. QRS ji7Niht is Normal. VA interval is normal. QRS interval is normal. QTinterval is normal. No Q waves. T waves are Normal. No ST changesnoted. Clinical impression: Normal ECG. Interpreted by me.Signatures:Dispatcher [employer] Елена Boogie RN JOSE LUIS Christensen, JOSE LUIS Mckenzie RN, Suzanne, MD MD seHowland, MD SARAH Ramirez zj2FxaocFortunato humphrey RN RN la2JxzkypBreonna yu RN RN to4DospquuAnoop valenzuela MD MD dk2Dflavio, Stacy AMAYA sa8Czavupoznhc: (The following items were deleted from the chart)10/2110:57 11:56 COVID-19 PROFILE+LAB ordered. HJRNGEFT22/0:32 00:10 LORazepam 4 mg IM once ordered. dk2 dk2 Name Value Range Interpretation Code Description Data Stephanie rce(s) Supporting Document(s) ID Date Data Source [id number] 10/31/2020 10:31:00 AM EDT [facility] Nurse's NotesClaxMary [facility] terName: Yareli DuvallAge: 20 yrsSex: FemaleDOB: 2000MRN: [id number] Date: 10/29/2020Time: 17:31Account#: [id number] FL7Hhrimvi MD:Diagnosis: Major depressive disorder, recurrent, unspecifiedPresentation:10/2016:31 Presenting complaint: Patient states: "suicidal thought with plan and tlmanxiety:". Coronavirus Screening: Have you been diagnosed withCOVID-19 in the past 30 days? no [facility] no Flu-like symptoms reported in the last 14 days: no.Have you had close contact with confirmed or suspected COVID-19 case?no Do you live in a setting where a large of amount of people live,such as long-term, family care, nursing home, etc? no. Have you traveledto a location with widespread or ongoing COVID-19 community spread [facility]? no Have you traveled internationally or hadcontact with someone that has traveled and has been ill in the past 3weeks? no Have you received the COVID vaccine? No. CommunicationSpeaks [place] Citizen? Yes, is preferred language. Communicable DiseaseScreen: Negative [...] that the patient found a paper clip ef2johwqxnrdl on a "window"- she would not give [...] reported that patient had been "digging and jg8nrakflmwed herself" and despite constant redirection, MHW had tomanually hold wrists down to prevent her from doing this. She doeshave bilateral superficial scratches to her wrists w/o bleeding. O70yrzxtlot ordered and given.05:26 Reassessment: documentation writer was called back to room by jimy- pt was still uy4wctfvfsheu to dig at herself. She was verbally [...] room due to patient harming self by ga3btbksbwiqd self with her fingernails several attempts made to getpatient to stop, patient asked why she was doing this and she replied"because I'm depressed and anxious" patient offered medication tohelp with her severe anxiety and she accepted MD made aware ofsituation and order recieved..20:39 Reassessment: Patient continues to try to hurt self and report severe ox2iyxzchp MD called to bedside to assess the situation and additionalmedications ordered..21:55 Reassessment: Despite all other interventions patient continues to jw5try to harm self MD notified and order received to place patient intorestraints at this time for safety.22:48 Reassessment: Patient appears in no apparent distress at this time. sf2Hpzynmh released from restraints at 2245, patient reports [...] mattress placed on the floor for safety, ratnaalso has stepped toward the door gesturing and [...] Report Not Completed. Intervention: Observation Level 3. [address] health consult is initiated at 20:30. Referral Information:Evaluation referral is generated by the patient himself / herself.The patient was referred for evaluation because expresses suici dalideations with the plan to hang her self or to overdose.20:57 Subjective: The patients chief complaint is Pt presents to the ED as sm8a walk in due to suicidal ideations. Pt [facility] three hours before arriving to the ED. [...] inpatient mental health.She has been admitted at [facility], [facility], [facility], and [facility].Pt has a history of Bipolar, Major Depressive, Anxiety. She statesthat she does not take her medications constantly which continuedwhile she was inpatient. Pt reports that she [facility]. She will be [...] reports history of anxiety, Bipolar Disorder, Depression, nv0omrofpw attempt: multiple by overdose Other: Borderline PersonalityDisorder. Mental Health Admissions: multiple [facility]. [facility] and was discharged today Current Outpatient [...] patient status is not currently needed or qd4kgcouijpene. Consultation: Psych MD informed of patient's status at21:00, ED MD notified of patients status at 21:17. Disposition:Medically cleared for disposition by Dr Argueta. Psychiatric Consultis performed by phone with Dr Macias The patient is to be transferredto bed available facility. Legal Status: Patient's legal status [facility] Services: 9.37. Commitment papers arecompleted. DSM-V DX [place] I diagnosis: Depression, Unspecified.Insurance Pre-Certification: Not Required. [facility] Admission Criteria:The patient is experiencing suicidal ideation. [...] referralhospital acceptance. The patient is not a sales and service advisor or militarydependent. [place] Suicide Severity Rating Scale: Suicidal IdeationRating 5; Intensity of Ideations Rating 25; Suicidal Behavior Rating1.10/2100:37 Narrative Pt was using her sheet and pillow case to wrap around her zg5pcgr. Blankets and pillow case were removed. Pt [...] left arm. She has been redirected multiple ki0etewq by PSA and sitter. Security is present. Pt is now currentlywaiting TV with both hands visible.03:58 Narrative Pt is laying down, watching TV. Sitter is present. Safety sm8is maintained.04:43 Narrative Pt started digging at her arm again. PSA and sitter had vd7thytdqqzj to redirect the pt with no success. Nurse and MD was donn. B52 was given. Pt has a keisha on her left wrist and a smallermark on her right wrist. Both have been looked at by nurse.19:21 Narrative PSA role handed off to this documentation writer at 1900. sm804/220:04 Narrative Since shift change at 1930 pt has been digging herself, im9zxetpsazndp to leave, yelling and swearing, she has kicked the wallsand door. Pt was put in restraints twice. While in restraints ptwould threaten staff members and kept trying to get out of them. Pthas been very difficult to redirect. PSA, 3 ED sitters, Nurse as [facility]be [facility] to talk to the pt and redirect. hasattempted to speak to her with no success. Pt has been givenmedications to help relax. Pt is currently sleeping. Sitter ispresent, taking vitals. Safety is maintained.04:06 Narrative PSA is sleeping. Sitter is present. Safety maintained. sm807:23 Narrative PSA role handed off to this documentation writer at 7:30 AM. kf09:33 Dis[facility]: [facility] Patient report is kfgiven to Dylan Ribeiro RN. Legal Status: Patient's legal status will Emergency: 9.39. Commitment papers are completed. PT has beenprovided with a copy of her legal status and rights.Psych:10/2017:02 Subjective: Patient's mood is euphoric, Delusions are denied, tlmHallucinations are denied Having thoughts of suicide. Plan forsuicide is to overdose on drugs, [facility] she told them she didn't [...] Observation Level Level 4 Sitter needed. Provider md8Fupetmsj Nils Argueta MD Charge Nurse notified Breonna [...] Clean catch specimen.19:13 No apparent distress. Psychosocial Motivational Speaker. tlm19:13 Sitter at bedside. tlm19:22 Nils Argueta MD is Attending Physician. th404/2108:18 Notified ED physician of other inspector optical instrument pt vomited would like tlmsomething, new orders [...] Resting quietly. wd119:00 Sitter at bedside. jw520:57 oFrtunato Mark, RN is Primary Nurse. jw520:58 Sitter [...] mg [quetiapine 25 mg tablet (1 tabs)] om7Pkmtu: PO;22:08 Follow up: Response: No adverse reaction tp204/2104:38 Drug: B52 IM - (LORazepam 2 mg, diphenhydrAMINE 50 mg, Haloperidol xv8Heeqkrf 5 mg) Route: IM; Site: right vastus [...] diphenhydrAMINE 50 mg [diphenhydramine 50 mg/mL injection gu5mjuxsukq (1 mL)] {Note: given for severe anxiety.} [...] 20 mg [ziprasidone 20 mg/mL (final concentration) mo0kbbrgtdnrahqu solution (1 mL)] Route: IM; Site: right [...] Psych accompanied by tech, with chart, [facility] officers x 210:30 Condition: stable.10:30 Instructed on need for admit.10:30 Discharge Assessment: Patient awake, alert and oriented x 3. Nocognitive and/or functional deficits noted. Patient verbalizedunderstanding of disposition instructions. Patient angry andinitially uncooperative Patient has no functional deficits.10:31 Patient left the ED. klpSignatures:Елена Hugo, RN Magaly Groves, RN Kylie Garces MD MD seDow, Wendy, RN RN Zakia Elias, RN RN fj4RqkpfidzqZakia [place], Nils Centeno MD MD pl3PmmivFortunato Mark RN RN qz7QflprbBreonna Marie RN RN aq5SvriqkbrUsha Adams Derek MD go3Dnyrfjfscgl: (The following items were deleted from the [...] Patient reports history of anxiety, Bipolar Disorder, nl2Nhgahulklu, suicide attempt: multiple by overdose Mental HealthAdmissions: multiple admissions. [facility] and wasdischarged today Current Outpati [...] appears in no apparent distress at this gp6gcie. jw5 Name Value Range Interpretation Code Description Data Stephanie rce(s) Supporting Document(s) ID Date Data Source [id number] 10/28/2020 08:29:00 PM EDT [facility] [address] [id number] NAME: YARELI HATCH#: [id number] PHYSICIAN: HUBER MEDINA #: [id number] ADM. DATE: 10/26/20PATIENT : 00 DISCH. DATE: [...] rce(s) Supporting Document(s) ID Date Data Source [id number] 10/28/2020 06:30:00 PM EDT [address] HEALTH PROGRESS NOTEPATIENT NAME: YARELI HATCH PHYSICIAN: BROOKLYN ONEILL MDAUTHOR: Surendra SMITH,P.ADM. DATE: 10/26/20 MR#: [id number] NOTE DATE: 10/28/20 RM#: [id number] TIME: 1830 , , female patient.CC/Hx Present IllnessPt states, "I was and I am feeling suicidal since last week". [facility] her so she came to [facility] with a friend and walked herself to the ED for an evaluation.Events Since Last EntryPatient was seen today to assess her improvement. The patient denies any SI/HI.She talked about her friend in [place] with whom she wants to live withuntil residence in [facility] opens .Portions of this section were scribed by Shell Ariza on 10/28/20 at 1832ObjectiveVital SignsVital Signs-LastResult Date TimePulse Ox 98 10/28 1140B/P 122/83 10/28 1140Temp 97.5 10/28 1140Pulse 65 10/28 1140Resp 14 10/28 1140Current MedicationsMiscellaneous Read CAAX12S NAQuetiapine Fumarate (Seroquel) 25 MG 2000 POChlorpromazine [...] will be discharged tomorrow with services in [place].Portions of this section were scribed by Shell Ariza on 10/28/20 at 1830DATE SIGNED: 10/28/20 Electronically SignedTIME SIGNED: 1831 BROOKLYN ONEILL MD Name Value Range Interpretation Code Description Data Stephanie rce(s) Supporting Document(s) ID Date Data Source [id number] 10/28/2020 05:10:00 PM EDT [place], [place] [address]MENTAL HEALTH DISCHARGE SUMMARYPATIENT NAME: YARELI HATCH MR#: [id number] PHYSICIAN: BROOKLYN ONEILL MDAUTHOR: Surendra SMITH,P. DATE: 10/26/20 #: [id number] DATE:VjmhfzjUnkwshrrfnobws61-bnaa-dbs, , female patient.Chief ComplaintPt states, "I was and I am feeling suicidal since last week". Reports she wentto [facility] last week and they didn't admit her so she came to [place] with a friend and walked herself to the ED for an evaluation.Reason for AdmissionIncreased depression and feeling suicidal. SIB, by scratching forearms with apencil when in-patient at [facility] in Aug.History of Presenting IllnessYareli is friendly, polite and cooperative today. Reports she feels saferwhen she is here in-patient. Has not been taking medications since her d/c [facility] in October. She didn't f/u with [...] HistoryHas been staying with a friend in [place] that she met while in the [facility].Abuse HistoryAdmits but doesn't discuss today.Legal HistoryCharged for disorderly conduct and harrassement but hasn't been to court yet.This involved staff during a restraint at [facility].Portions of this section were scribed by Shell Ariza on 10/28/20 at 1710[facility] and then today. She talked about her multiple overdosesand that [facility] did not want to hospitalize her. So, she decided to pick [facility] and showed up to our ER. Subsequently, admitted here. It also appears cecilhas a friend whom she met while she [...] her. Shestates she has a friend in [place] and then wait until residence in [facility] up.Portions of this section were scribed by Shell Ariza on 10/28/20 at 1803DATE SIGNED: 10/28/20 Electronically SignedTIME SIGNED: 180 BROOKLYN ONEILL MD Name Value Range Interpretation Code Description Data Stephanie rce(s) Supporting Document(s) ID Date Data Source [id number] 10/27/2020 10:23:00 AM EDT [address] PSYCHIATRIC ASSESSMENTPATIENT NAME: YARELI HATCH MR#: [id number] PHYSICIAN: BROOKLYN ONEILL MDAUTHOR: Frantz Win DATE: 10/26/20 RM#: [id number], , female patient.Chief ComplaintPt states, "I was and I am feeling suicidal since last week". Reports she wentto [facility] last week and they didn't admit her so she came to [facility] with a friend and walked herself to the ED for an evaluation.Reason for AdmissionIncreased depression and feeling suicidal. SIB, by scratching forearms with apencil when in-patient at [facility] in Aug.History of Presenting IllnessYareli is friendly, polite and cooperative today. Reports she feels saferwhen she is here in-patient. Has not been taking medications since her d/c [facility] in October. She didn't f/u with her out-patient services and didn'tpick up her prescribed meds from the pharmacy. She reports she notices nodifference on or off her medications.Past Psych/Medical HistoryPsychiatric HistorySignificant psych historyMedical HistoryDeniesDrugs/Alcohol/Tobacco HistoryDeniesHome MedicationsSee Home Medication ListAllergiesCoded Allergies:haloperidol (From HALDOL) (06/15/20)risperidone (08/04/19)Family HistoryFamily history of mental health and substance use.Social HistoryHas been staying with a friend in [place] that she met while in the [facility].Abuse HistoryAdmits but doesn't discuss today.Legal HistoryCharged for disorderly conduct and harrassement but hasn't been to court yet.This involved staff during a restraint at [facility].ExamVital SignsVital Signs-LastResult Date TimePulse Ox 100 [...] (0.0 - 20.0 mg/dL) < 1.7 10/26 07Opiates Screen (NEGATIVE) NEG 10/26 0708Methadone Screen (NEGATIVE) [...] (5.0 - 8.0) 6.0 10/26 07Ur Specific [place] (1.010 - 1.025) 1.027 H 10/26 07Urine Protein (Negative) Negative 10/26 0708Urine Ketones (NEGATIVE) Negative 10/26 07Urine Blood (NEGATIVE) Negative 10/26 07Urine Nitrite (Negative) Negative 10/27 707Ur Bilirubin Confirm (NEGATIVE) Negative 10/26 07Urine Urobilinogen (0.2 - 1.0 mg/dL) 0.2 10/26 07Urine Leukocytes (Negative) Negative 10/26 07Urine Glucose (NEGATIVE) Negative 10/26 07Urine HCG, Qual (Negative) Negative 10/27 707Assessment/PlanDiagnosis1. Major depressive disorderStatus Acute2. Suicide attemptStatus Acute3. Bipolar affective disorder4. Borderline personality disorder5. Suicidal ideationCoordination of care provided with nursing staff, treatment team, social work,physician's, familyRisk/benefits discussed expected therapeutic effe, side effectsJustification for continued stay danger to self/othersDATE SIGNED: 10/27/20 Electronically SignedTIME SIGNED: 1047 FRANTZ CHRISTOPHER GIORDANO Name Value Range Interpretation Code Description Data Stephanie rce(s) Supporting Document(s) ID Date Data Source [id number] 10/26/2020 05:21:00 PM EDT [address] [id number] AND PHYSICALPATIENT NAME: YARELI HATCH MR#: [id number] PHYSICIAN: BROOKLYN ONEILL MDAUTHOR: Eliana Garcia DO DATE: 10/26/20 RM#: [id number] & PHYSICAL DATE: 10/26/20 : 00EVALUATION TIME: 1731HistoryChief Complaint/Admit ReasonSuicidal ideationHistory of Presenting IllnessPatient is a 20 years old [facility]. According to [facility] [...] 131/82 134/79B/P MeanPulse Ox 96O2 DeliveryO2 Flow IavsZkD3Fozortpw ExaminationGeneral Appearance no acute distress, afebrile, alert, awake, conversant, facesymmetricalHead atraumatic, normocephalicNeck no swelling, suppleCardiovascular regular rate, no murmur, normal capillary refill, Positive S1and Z2Glofrodnrdy clear to auscultation, no distress, aerating well, [...] bleeding or surrounding erythemanoted.Data ReviewLaboratory DataRecent Labs-48 hours10/[id number] 9375 0732ChemistrySodium (136 - 147 mmol/L) 143Potassium (3.5 [...] CloudyUrine pH (5.0 - 8.0) 6.0Ur Specific Langdon (1.010 - 1.025) 1.027 HUrine Protein (Negative) NegativeUrine Ketones (NEGATIVE) NegativeUrine Blood (NEGATIVE) NegativeUrine Nitrite (Negative) NegativeUr Bilirubin Confirm (NEGATIVE) NegativeUrine Urobilinogen (0.2 - 1.0 mg/dL) 0.2Urine Leukocytes (Negative) NegativeUrine Glucose (NEGATIVE) NegativeUrine HCG, Qual (Negative) Hgryvsdf08/[id number]-23 (CORDELL) (NEGATIVE) NEGATIVEAssessment/PlanDiagnosis/Problem1. Suicidal ideationA&P- Patient is [...] rce(s) Supporting Document(s) ID Date Data Source [id number] 10/26/2020 11:14:00 AM EDT [facility] Name Value Range Interpretation Code Description Data Stephanie rce(s) Supporting Document(s) COVID-19, CORDELL NEGATIVE NEGATIVE [facility] Methodology: Isothermal [...] Emergency Use Authorization. ID Date Data Source [id number] 10/26/2020 07:42:00 AM EDT [facility] Name Value Range Interpretation Code Description Data Stephanie rce(s) Supporting Document(s) WBC 8.10 x10E3/uL 4.0-10.5 [facility] RBC 4.37 x10E6/uL 4.20-5.40 [facility] Hemoglobin 13.2 g/dL 12.0-16.0 [facility] Hematocrit 39.2 % 37.0-47.0 [facility] MCV 89.7 fL 81.0-99.0 [facility] MCH 30.2 pg 27.0-31.0 [facility] MCHC 33.7 g/dL 32.7-35.6 [facility] RDW 11.9 % 11.5-14.0 [facility] Platelet count 204 x10E3/uL 150-450 [facility] ital MPV 9.6 fl 6.9-9.5 [facility] Neutrophils 67.3 % 34-64 [facility] Lymphocytes 23.3 % 25-45 L [facility] Monocytes 7.3 % 1.7-10.6 [facility] Eosinophils 1.5 % 0.4-7.0 [facility] Basophils 0.1 % 0.1-2.0 [facility] Imm. Gran. 0.5 % 0.1-2.0 [facility] Abs. Neutro. 5.45 x10E3/uL 1.2-7.6 [facility] Abs. Lymph. 1.89 x10E3/uL 1.0-3.5 [facility] Abs. [place]. 0.59 x10E3/uL 0.1-1.0 [facility] Abs. Eosin. 0.12 x10E3/uL 0.1-0.7 [facility] Abs. Baso. 0.01 x10E3/uL 0.0-0.1 [facility] Abs. Imm. Gran. 0.04 x10E3/uL 0.0-0.1 N [facility] spital ANRBC% 0 % 0 [facility] ID Date Data Source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 RBCs/HPF NONE SEEN [facility] URINE WBC 0-2 WBCs/HPF NONE SEEN [facility] URINE BACTERIA Few NONE SEEN N [facility] URINE EPI. Few NONE SEEN [facility] URINE CRYSTAL MODERATE AMORPHOUS NONE SEEN N [facility] ID Date Data Source [id number] 06/15/2020 05:47:00 AM EST [facility] Physician DocumentationClaxton-Naveen Hinkle edical CenterName: Yareli PatelvallAge: 19 yrsSex: FemaleDOB: 2000MRN: [id number] Date: 06/15/2020Time: 01:36Account#: [id number] MD: NONE, - Per PatientED Physician Esteban Argueta Summary:06/15/20 04:14Hospitalization OrderedHospitalization Status: Inpatient Admission hc1Jqbofgvj: Fili Canela dt6Smxbijuj: Mental Health Unit rc8Sbkaismuw: Stable xq3Pjmccqq: an ongoing problem va2Sdxpzayb: are unchanged vg8Snuo Assignment: is7Qojdxfhly- Bipolar disorder, unspecified co0Bgbgqpbxja Information- Admission Type: Inpatient Status. sv6Hcirc:- Medication Reconciliation th4- SBAR th4- Medication Reconciliation Form - 2nd Copy th4HPI:06/502:07 This 19 yrs old White Female presents to ER via Police with gi4pfbualltpt of Psych Problem.02:07 Patient is brought in by police on a pickup order for mental health hx0wiojfjdzkc. Patient reports she is suicidal with a [...] She denies any other problems or anyother complaints..BROWNFIELD PROGRAM COORDINATOR:01:48 LMP 06/08/2020 ia7Lnmamralis:- Allergies: Haldol; RISPERIDONE;- Home Meds:1. hydroxyzine pamoate [...] Smoking status: [facility] Patient/guardian denies using street drugs, IV drugs, [...] signs, nurses notes, lab test result(s). ED bf9prilqi: Patient remained stable in the ER. Patient here for mentalhealth evaluation as above. Patient was seen and evaluated by PSA andpresented to the psychiatrist. Patient will be admitted for furtherevaluation and treatment. See PSA note. Patient has remainedcooperative..06/501:52 Order name: Acetaminophen Level; Complete Time: ::52 Order name: CBC with diff; Complete Time: 02::52 Order name: CMP; Complete Time: 02::52 Order name: ETOH; Complete Time: 02::52 Order name: Glucose :52 Order name: Salicylate Level; Complete Time: 02::52 Order name: Triage - Drug Screen; Complete Time: 03:04 :52 Order name: UA; Complete Time: 02::52 Order name: Urine HCG Qualitative; Complete Time: 02:51 :52 Order name: Diet - Mental Health Tray (call dietary); Complete Time: jw505:[id number]/500:52 Order name: Belongings List; Complete Time: 05::52 Order name: Document Weight and Height for BMI; Complete Time: ::52 Order name: Mental Health Evaluation; Complete Time: ::52 Order name: Mental Health Level 3; Complete Time: 05::52 Order name: VS q shift; Complete Time: ::51 Order name: Medically Cleared for Eval by-Psychosocial, Motivational Speaker th4(.PSA); Complete Time: 03:11Dispensed Medications:No medications were administeredSignatures:Dispatcher [employer] Nils Hicks MD MD ll9RmromFortunato humphrey RN RN jw5 Name Value Range Interpretation Code Description Data Stephanie rce(s) Supporting Document(s) ID Date Data Source [id number] 06/15/2020 05:47:00 AM EST [facility] Nurse's NotesClaxVA [facility] Tootie terName: Yareli DuvallAge: 19 yrsSex: FemaleDOB: 2000MRN: [id number] Date: 06/15/2020Time: 01:36Account#: [id number] MD: NONE, - Per PatientDiagnosis: Bipolar disorder, unspecifiedPresentation:06/501:37 Presenting complaint: Patient brought in by [facility] officer Anatoly on a ui9xdsz up order for mental health evaluation. Patient reports feelingsuicidal with a plan to strangle self or overdose on medicationdepressed and being homeless. Coronavirus Screening: Have youtraveled internationally or had contact with someone that hastraveled and has been ill in the past 3 weeks? no Have you traveledto a location with widespread or ongoing COVID-19 community spread oroutside of [facility]? no Flu-like symptoms reported in the last [...] Arrival: Police jw501:40 Acuity Assignment: Triage 2 qy6Bvgynq Assessment:01:47 General: Appears in no apparent distress, Behavior is cooperative. te8Mvftvo Screening: (1)Signs/symptoms infection Sepsis is notsuspected. Pain: [...] aware ofpositive screen, suicide precautions implemented. ESS-6 ordered.BROWNFIELD PROGRAM COORDINATOR:01:48 LMP 06/08/2020 ti7Izzxbhrmeu:- Allergies: Haldol; RISPERIDONE;- Home Meds:1. hydroxyzine pamoate [...] threats or abuse. Denies injuries from another. bm0Gwdkpkxhquc screening: No deficits noted. Offer of HIV testing:patient was previously offered screening. Fall Risk None identified.Assessment:05:43 Reassessment: see triage assessment. wy0Xcwqrskfxzap:02:54 Intervention: Observation Level 3. Mental health consult is initiated grat 02:54.03:13 Referral Information: Evaluation referral is generated by a police gragency: [facility]. The patient was referred for evaluation because pt hadbeen at the [facility] ([facility]) sinceyesterday afternoon. She [...] and off'. Pt grreports going to the [facility] center multiple times recently. Ptwas there [...] family since coming out as transgendered also xq2484. Pt has an extensive psychiatric hx with multipleh ospitalizations throughout childhood, adolescence, and adulthood. Ptwas recently inpatient on [facility] from February to May 2020. Ptwas discharged on 05/15/20 to supportive housing in [place]. Pt reportsgoing to the crisis center almost [...] a young age. [facility].Current Outpatient Mental Health Services: Psychiatrist / Agency:[facility] in [place]. Therapist / Agency: Hilda/ Мария. Living Environment: Family / Home Support: Poor. Ptreports no contact with adoptive family. Has minimal contact withbiological parents; states "they don't accept me". The patientcurrently lives "homeless". Had been in supportive housing/ communityresidence in [place].03:24 Patient presents to Emergency Department with the [...] Dr Canela. The patient is admitted to [facility] Patientreport is given to Malu Bowman RN. Legal Status: Patient's legalstatus will be Emergency: 9.39. Commitment papers are completed. Pthas been provided with a copy of legal status and rights.04:09 DSM-V DX [place] I diagnosis: Bipolar D/O, Unspecified. gr04:09 Insurance Pre-Certification: Not Required. [facility] Admission Criteria: grThe patient is experiencing suicidal [...] psychoactivemedications or significant dosage adjustments. [facility]. Transition of care to Pt will be transferred to U by [facility] andsecurity. The patient is not a sales and service advisor or dependent.[place] Suicide Severity Rating Scale: Suicidal Ideation Rating 5;Intensity of Ideations Rating 25; Suicidal Behavior Rating 1.Psych:01:51 Subjective: Patient's mood is sad, hopeless, Delusions are denied, oz1Laqrgrzbvoqppm are denied Having thoughts of suicide. Plan forsuicide is to strangle self or overdose on medications. Objective:Patient is cooperative, Speech is normal, Affect is appropriate,Patient has mutilated themselves by superficial cuts to left arm.02:04 Interventions: Removed personal items and placed in bag. Patient ff6adlddv in hospital gown. Searched person for dangerous [...] armband on for positive identification. Placed in gp5wliu. Bed in low position. Sitter at bedside.Administered Medications:No medications were administeredOutcome:04:14 Decision to Hospitalize by Provider. th405:25 Disposition: Admitted to Psych cm405:25 Condition: stable.05:25 Instructed on need for admit.05:25 Discharge Assessment: Patient verbalized understanding of dispositioninstructions. Patient has no functional deficits.05:47 Patient left the ED. mw6Fmxckoevhd:Rose Paulino, Nils Hernandez MD MD nw6HyzhyFortunato humphrey RN RN rd9IwxbpujpkWendy quintana RN RN cm4 Name Value Range Interpretation Code Description Data Stephanie rce(s) Supporting Document(s) ID Date Data Source [id number] 05/16/2020 01:20:00 PM EST [facility] [place], [place] [address]HJECNZ HEALTH DISCHARGE SUMMARYPATIENT NAME: YARELI HATCH MR#: [id number] PHYSICIAN: BOGDAN MACIAS MDAUTHOR: Bogdan Macias MD DATE: 02/15/20 #: [id number] DATE:HistoryIdentificationPatient is 19-year-old female, currently single, lives in a motel,past psych history of bipolar disorderChief ComplaintThe patient was referred for evaluation because pt having suicidal ideations.History of Presenting IllnessInformation from emergency room,The patients chief complaint is Pt presents [facility] ED as sm8 a walk in for suicidal ideations with the plan to eitheroverdose or jump in traffic. Pt has been staying in a hotel in [place] aftersigning her self out of [facility] in November of 2019. Pt reports she called a cab herselfto bring her here. Pt states she was inpatient at [facility] for a month and wasdischarged yesterday. [...] is allergic to Haldol but thedoctor in [facility] had put her on the medication any ways. Pt reports ahistory of bipolar, borderline personality disorder, and gender identitydisorder. Pt has a history of inpatient [facility] at [facility] and[facility]. Pt was last inpatient to [facility] 12/02/2019. Pt reports when recently hada suicide attempt a few days after being dicharged from [facility] last, she statedshe had overdosed on medications [...] arrangement as [facility] for [...] out regarding staying in a motelin the [place] area as she signed herself out from [facility] on November 2019. Patientstated that she was feeling very uncomfortable and was feeling unsafe in thathitel due to bunch of drug addicts around [...] Onepoint patient [facility] and she was rejected by them due toexpressing that they think that the patient has a more behavioral issues andwould not be benefited with inpatient mental health treatment. Later onpatient was staying on the unit as we were waiting for a safe place fordischarge and referral being sent to different places such as [facility], [facility] and[facility] places as well. Later on patient was accepted for [facility] which patientagreed and willing to go for [...] forward to fill out some paperwork at [facility] as well. She alsoappreciated the service that [...] the following new medications:Loratadine* (Claritin*) 10 MG GJFSVP83 MILLIGRAM Orally DAILYQty = 14Refills = 1TOPIRAMATE (TOPAMAX) 25 MG AXLYYC78 MILLIGRAM Orally TWICE DAILYQty = 20Refills = 1Fluoxetine* (Prozac*) 20 MG UTNFNSW03 MILLIGRAM Orally DAILYQty = 20Refills = 1HydrOXYzine (Atarax*) 50 MG URJEWJZ29 MILLIGRAM Orally TWICE DAILY as needed for AnxietyQty = 20Refills = 1ARIPIPRAZOLE (ABILIFY MAINTENA) 400 MG SUSER.UVAM474 MILLIGRAM Intramuscularly N92LXgf = 1No RefillsInstruction s:Last IM injection received on May 03, 2020Discharge Activity: As toleratedDischarge diet: Low Fat/Low CholesterolFollow-upFollow up with your Primary care physicianFollow-up with therapist and psychiatrist as recommendedAlso recommended outpatient chemical dependencyReferralsOrdered ReferralsOphthalmology 07/23/20[facility] person [facility] ([phone])located at [address] [place] [address] in [place] July 23 at 11:30 am.Internal Medicine 06/03/20In person primary care appointment [facility] ([phone]) located at [address] [place] [address] in [place] on June 03 at 2:00 pm with Lilianamainor Nunez.[facility] [place] [address] In person appointment at [facility] ([phone]) locatedat [address] [facility] on May 23 at 2:00 pm with Yareli will need to attend thisappointment in order to receive herAbilify Maintenna injection on 05/31.[facility] [place] [address] In person appointment at [facility] ([phone])located at [address] [place] [address] in [place] onMay 29 at 11:00 amwith Yareli will need to attendthis appointment in order to receive herAbilify Maintenna injection on 05/31.DATE SIGNED: 05/16/20 Electronically SignedTIME SIGNED: 1326 BOGDAN MACIAS MD Name Value Range Interpretation Code Description Data Stephanie rce(s) Supporting Document(s) ID Date Data Source [id number] 05/16/2020 09:41:[address] [address]NBCNPNC NAME: YARELI HATCH#: [id number] PHYSICIAN: BOGDAN MACIAS MDAOUNT #: [id number] ADM. DATE: 02/15/20PATIENT : 00 DISCH. DATE: [50}DISCHARGE SUMMARYMHU discharge planNicotine Replacement TherapySmoking Status Never smokerPrescribed at discharge Rx not offered at [facility] ROSAlcohol/Drug DisorderAlcohol or Drug Disorder counseling prescribedPersonal Care InstructionsDischarge Activity: As toleratedDischarge diet: Low Fat/Low CholesterolFollow Up CareFollow Up:Follow up with your Primary care physicianFollow-up with therapist and psychiatrist as recommendedAlso recommended outpatient chemical dependencyPriority ItemsUrgent/Important items t hat need to be addressed at primary care follow-upappointmentDischarge InformationDISCHARGE INFORMATION* Thank you for [facility] and allowing us toserve you* Our Goal is to provide the highest quality of care.* This discharge information is to help you better understand your diagnosisand medication* Avoid taking ozkg-joh-gmmalrv medicines unless approved by your physician.* Take your medications as prescribed. DO NOT stop any medications unlessapproved first* Weigh yourself daily. Report any gain of 5 lbs in a week* 24 Hour Crisis HOTLINE available: Call Reachout at * Chem. Dependency: Walk in Clinics [place] ([phone]) and [place] ([phone]) anytime Wednesday thru Wednesday 8 to 10am. [place] ([phone]) anytimeWednesday thru Wednesday 8 to 10am. [place] ([phone]) Wednesday or Wednesday from 8to 10am (Bring $30 to First Appt) SMOKIN G CESSATION* Smoking is dangerous to your health. It delays the healing process, andworks against your medications. Not smoking will improve your health* Our hospital participates with the Opt-to-Quit program. You will be contactedafter discharge by the [facility] Smoker's Quitline for support with tobaccocessation. You have the option once contacted to refuse this service.* You can also go online to www.Vinja.Talenthouse. Free nicotine replacementsare available ___Attention* You should [...] rce(s) Supporting Document(s) ID Date Data Source [id number] 05/15/2020 01:17:00 PM [place] [id number] HEALTH PROGRESS NOTEPATIENT NAME: YARELI HATCH PHYSICIAN: BOGDAN MACIAS MDAUTHOR: Colleen SMITH,DhruvADM. DATE: 02/15/20 MR#: [id number] NOTE DATE: 05/15/20 RM#: [id number] TIME: 1319 [...] rce(s) Supporting Document(s) ID Date Data Source [id number] 05/14/2020 11:49:00 AM EST [facility] [place], [place] [address]TLCKGW HEALTH PROGRESS NOTEPATIENT NAME: YARELI HATCH [place] PHYSICIAN: BOGDAN MACIAS, MDAUTHOR: Colleen SMITH,Sarahy. DATE: 02/15/20 MR#: [id number] NOTE DATE: 05/14/20 RM#: [id number] TIME: 1151 is 19-year-old female, currently single, lives in a motel,past psych history of bipolar disorderCC/Hx Present IllnessThe patient was referred for evaluation because pt having suicidal ideations.Events Since Last EntryPatient reporting feeling somewhat better, she is mostly focused on herdischarge plan and she is about to be discharged this prior to going to [facility]. Patient denied having any suicidal, [...] rce(s) Supporting Document(s) ID Date Data Source [id number] 05/13/2020 01:19:[address] HEALTH PROGRESS NOTEPATIENT NAME: YARELI HATCH PHYSICIAN: BOGDAN MACIAS MDAUTHOR: Colleen SMITH,DhruvADM. DATE: 02/15/20 MR#: [id number] NOTE DATE: 05/13/20 RM#: [id number] TIME: 1322 [...] QHSPRN PRN POExaminationMusculoskeletalGait normalStation normalResultsLaboratory DataRecent Labs-24 [id number] (CORDELL) PendingResults Ordered/ReviewedLab Tests reviewedAssessment/PlanDiagnosis1. Major depressive disorderStatus Acute2. Bipolar affective disorder3. Borderline personality disor derCoordination of care provided with nursing staff, treatment team, social work,physician's, familyRisk/benefits discussed side effectsJustification for continued stay danger to self/othersDATE SIGNED: 05/13/20 Electronically SignedTIME SIGNED: 1322 BOGDAN MACIAS MD Name Value Range Interpretation Code Description Data Stephanie rce(s) Supporting Document(s) ID Date Data Source [id number] 05/13/2020 11:14:00 AM EST [facility] Name Value Range Interpretation Code Description Data Stephanie rce(s) Supporting Document(s) SARS coronavirus 2 RNA [facility] This lab was ordered by [facility] and reported by [facility]. ID Date Data Source [id number] 05/14/2020 04:07:00 PM EST [facility] [place] Performed at: RN - [facility] [place] [id number] Director: Samira Cortez MD, Phone: [phone] Name Value Range Interpretation Code Description Data Stephanie rce(s) Supporting Document(s) SARS-CoV-2, CORDELL Not Detected Not Detected [facility] This nucleic acid amplification test [...] SARS-CoV-2 virusand/or diagnosis of COVID-19 infection under (b)(1) of the Act, 21 U.S.C. 360bbb-3(b) (1), [...] Acid Amplification (CORDELL) ID Date Data Source [id number] 05/10/2020 11:10:00 AM EDT [facility] [address] HEALTH PROGRESS NOTEPATIENT NAME: YARELI HATCH PHYSICIAN: BOGDAN MACIAS MDAUTHOR: Colleen SMITH,DhruvADM. DATE: 02/15/20 MR#: [id number] NOTE DATE: 05/10/20 RM#: [id number] TIME: 1113 [...] QHSPRN PRN POExaminationMusculoskeletalGait normalStation normalResultsLaboratory DataRecent Labs-24 hours10/926452WyctvbjinXmapkv (136 - 147 mmol/L) 141Potassium (3.5 - [...] rce(s) Supporting Document(s) ID Date Data Source [id number] 05/09/2020 05:28:00 PM [facility]T [facility] Name Value Range Interpretation Code Description Data Stephanie rce(s) Supporting Document(s) GLU 80 mg/dL 70-110 N [facility] Patients taking Sulfasalazine may have f alsely depressedGlucose levels. Patients taking Sulfapyridine may havefalsely elevated Glucose levels. Patients should be drawnfor Glucose before the initial administration of eitherdrug. BUN 12 mg/dL 7-23 [facility] CRE 0.502 mg/dL 0.500-1.300 [facility] CHLORIDE 109 mmol/L 99-110 [facility] NA 141 mmol/L 136-147 [facility] POTASSIUM 4.5 mmol/L 3.5-5.1 [facility] TCO2 26 mmol/L 20-33 [facility] ANION GAP 10.5 10.0-20.0 [facility] CA 9.1 mg/dL 8.3-10.7 [facility] ALKALINE PHOS 142 U/L 82-169 [facility] TP 7.7 g/dL 6.0-7.8 [facility] ALB 4.0 g/dL 3.5-5.0 [facility] ESRD Dialysis patient Albumin reference range: 2.9-4.4 g/dL GL 3.7 g/dL 2.3-3.5 [facility] A/G 1.1 1.0-2.5 [facility] T. BILIRUBIN 0.4 mg/dL 0.1-1.1 [facility] [employer] [place] [place] Total Bilirubin is n ot recommended forpatients undergoing treatment with eltrombopag (Promacta)due to the potential for falsely elevated results. ALTI 57 U/L 6-54 [facility] Patients taking Sulfasalazine and/or Sul fapyridine may havefalsely depressed ALT levels. Patients should be drawn forALT before the initial administration of either drug. AST 30 U/L 6-38 [facility] Patients taking Sulfasalazine and/or Sul fapyridine may havefalsely depressed AST levels. Patients should be drawn forAST before the initial administration of either drug. ID Date Data Source [id number] 05/09/2020 05:00:00 PM EDT [facility] Name Value Range Interpretation Code Description Data Stephanie rce(s) Supporting Document(s) WBC 7.62 x10E3/uL 4.0-10.5 [facility] RBC 4.40 x10E6/uL 4.20-5.40 [facility] Hemoglobin 12.7 g/dL 12.0-16.0 [facility] Hematocrit 38.7 % 37.0-47.0 [facility] MCV 88.0 fL 81.0-99.0 [facility] MCH 28.9 pg 27.0-31.0 [facility] MCHC 32.8 g/dL 32.7-35.6 [facility] RDW 12.7 % 11.5-14.0 [facility] Platelet count 254 x10E3/uL 150-450 [facility] MPV 9.9 fl 6.9-9.5 [facility] Neutrophils 58.1 % 34-64 [facility] Lymphocytes 34.1 % 25-45 [facility] Monocytes 6.4 % 1.7-10.6 [facility] Eosinophils 0.9 % 0.4-7.0 [facility] Basophils 0.1 % 0.1-2.0 [facility] Imm. Gran. 0.4 % 0.1-2.0 [facility] Abs. Neutro. 4.42 x10E3/uL 1.2-7.6 [facility] Abs. Lymph. 2.60 x10E3/uL 1.0-3.5 [facility] Abs. [place]. 0.49 x10E3/uL 0.1-1.0 [facility] Abs. Eosin. 0.07 x10E3/uL 0.1-0.7 [facility] Abs. Baso. 0.01 x10E3/uL 0.0-0.1 [facility] Abs. Imm. Gran. 0.03 x10E3/uL 0.0-0.1 [facility] ANRBC% 0 % 0 [facility] ID Date Data Source [id number] 05/09/2020 01:04:00 PM EDT [facility] [address] HEALTH PROGRESS NOTEPATIENT NAME: YARELI HATCH PHYSICIAN: BOGDAN MACIAS, MDAUTHOR: Colleen SMITH,Sarahy. DATE: 02/15/20 MR#: [id number] NOTE DATE: 05/09/20 RM#: [id number] TIME: 1307 [...] rce(s) Supporting Document(s) ID Date Data Source [id number] 05/08/2020 12:46:00 PM EDT [address] HEALTH PROGRESS NOTEPATIENT NAME: YARELI HATCH [facility]OVANNY PHYSICIAN: BOGDAN MACIAS MDAUTHOR: Colleen SMITH,DhruvADM. DATE: 02/15/20 MR#: [id number] NOTE DATE: 05/08/20 RM#: [id number] TIME: 1248 [...] Deniedhaving any suicidal, homicidal ideations.Mental status examination: Chris sheets was alert, oriented with a place, person,appeared [...] regarding safe discharge plan and [facility]ibledis[facility], patient seems com pliant with her treatment [...] rce(s) Supporting Document(s) ID Date Data Source [id number] 05/07/2020 01:49:00 PM EDT [address] [id number] HEALTH PROGRESS NOTEPATIENT NAME: YARELI HATCH PHYSICIAN: BOGDAN MACIAS MDAUTHOR: Colleen SMITH,DhruvADM. DATE: 02/15/20 MR#: [id number] NOTE DATE: 05/07/20 RM#: [id number] TIME: 1351 [...] rce(s) Supporting Document(s) ID Date Data Source [id number] 05/06/2020 01:32:00 PM EDT [facility] [place] [id number] HEALTH PROGRESS NOTEPATIENT NAME: YARELI HATCH PHYSICIAN: BOGDAN MACIAS MDAUTHOR: Colleen SMITH,Sarahy. DATE: 02/15/20 MR#: [id number] NOTE DATE: 05/06/20 RM#: [id number] TIME: 1335 is 19-year-old female, currently single, lives in a motel,past psych history of bipolar disorderCC/Hx Present IllnessThe patient was referred for evaluation because pt having suicidal ideations.Events Since Last EntryPatient was seen along with sitter as well as instructor wastewater treatment plant on otherside, patient was resting comfortable, discussed [...] rce(s) Supporting Document(s) ID Date Data Source [id number] 05/05/2020 11:49:00 PM EDT [address] [id number] NOTE FOLLOW UPPATIENT NAME: MAMIEYARELI PHYSICIAN: BOGDAN MACIAS MDAUTHOR: Dori SMITH,[facility]. DATE: 02/15/20 MR#: [id number] NOTE DATE: 05/05/20 RM#: [id number] TIME: 0014 [...] rce(s) Supporting Document(s) ID Date Data Source [id number] 05/05/2020 02:12:00 AM EDT [facility] Name Value Range Interpretation Code Description Data Stephanie rce(s) Supporting Document(s) MAGNESIUM 2.2 mg/dL 1.6-2.6 [facility] ID Date Data Source [id number] 05/05/2020 02:12:00 AM EDT [facility] Name Value Range Interpretation Code Description Data Stephanie rce(s) Supporting Document(s) ALLEN 4.5 mg/dL 2.5-4.5 [facility] ID Date Data Source [id number] 05/05/2020 02:12:00 AM EDT [facility] Name Value Range Interpretation Code Description Data Stephanie rce(s) Supporting Document(s) GLU 97 mg/dL 70-110 [facility] Patients taking Sulfasalazine may have f alsely depressedGlucose levels. Patients taking Sulfapyridine may havefalsely elevated Glucose levels. Patients should be drawnfor Glucose before the initial administration of eitherdrug. BUN 18 mg/dL 7-23 [facility] CRE 0.571 mg/dL 0.500-1.300 [facility] CHLORIDE 109 mmol/L 99-110 [facility] NA 142 mmol/L 136-147 [facility] POTASSIUM 4.3 mmol/L 3.5-5.1 [facility] TCO2 27 mmol/L 20-33 [facility] ANION GAP 10.3 10.0-20.0 [facility] CA 8.7 mg/dL 8.3-10.7 [facility] ALKALINE PHOS 126 U/L 82-169 [facility] TP 7.1 g/dL 6.0-7.8 [facility] ALB 3.6 g/dL 3.5-5.0 [facility] ESRD Dialysis patient Albumin reference range: 2.9-4.4 g/dL GL 3.5 g/dL 2.3-3.5 [facility] A/G 1.0 1.0-2.5 [facility] T. BILIRUBIN 0.3 mg/dL 0.1-1.1 [facility] [employer] [place] Total Bilirubin is n ot recommended forpatients undergoing treatment with eltrombopag (Promacta)due to the potential for falsely elevated results. ALTI 47 U/L 6-54 [facility] Patients taking Sulfasalazine and/or Sul fapyridine may havefalsely depressed ALT levels. Patients should be drawn forALT before the initial administration of either drug. AST 18 U/L 6-38 [facility] Patients taking Sulfasalazine and/or Sul fapyridine may havefalsely depressed AST levels. Patients should be drawn forAST before the initial administration of either drug. ID Date Data Source [id number] 05/05/2020 01:52:00 AM EDT [facility] Name Value Range Interpretation Code Description Data Stephanie rce(s) Supporting Document(s) WBC 8.06 x10E3/uL 4.0-10.5 [facility] RBC 4.09 x10E6/uL 4.20-5.40 [facility] Hemoglobin 11.8 g/dL 12.0-16.0 [facility] Hematocrit 36.6 % 37.0-47.0 [facility] MCV 89.5 fL 81.0-99.0 [facility] MCH 28.9 pg 27.0-31.0 [facility] MCHC 32.2 g/dL 32.7-35.6 L [facility] RDW 12.6 % 11.5-14.0 [facility] Platelet count 226 x10E3/uL 150-450 N [facility] ital MPV 9.6 fl 6.9-9.5 H [facility] Neutrophils 51.7 % 34-64 N [facility] Lymphocytes 38.1 % 25-45 N [facility] Monocytes 8.4 % 1.7-10.6 [facility] Eosinophils 1.1 % 0.4-7.0 [facility] Basophils 0.2 % 0.1-2.0 [facility] Imm. Gran. 0.5 % 0.1-2.0 [facility] Abs. Neutro. 4.16 x10E3/uL 1.2-7.6 [facility] [place] Abs. Lymph. 3.07 x10E3/uL 1.0-3.5 [facility] Abs. [place]. 0.68 x10E3/uL 0.1-1.0 N [facility] l Abs. Eosin. 0.09 x10E3/uL 0.1-0.7 [facility] Abs. Baso. 0.02 x10E3/uL 0.0-0.1 [facility] Abs. Imm. Gran. 0.04 x10E3/uL 0.0-0.1 N [facility] spital ANRBC% 0 % 0 [facility] ID Date Data Source [id number] 05/05/2020 12:57:00 AM EDT [address] [id number] NOTE FOLLOW UPPATIENT NAME: YARELI HATCH PHYSICIAN: BOGDAN MACIAS MDAUTHOR: Dori SMITH,[facility]. DATE: 02/15/20 MR#: [id number] NOTE DATE: 05/05/20 RM#: [id number] TIME: 0117 [...] rce(s) Supporting Document(s) ID Date Data Source [id number] 05/03/2020 01:24:00 PM EDT [address] HEALTH PROGRESS NOTEPATIENT NAME: YARELI HATCH CATTENGIOVANNY PHYSICIAN: BOGDAN MACIAS MDAUTHOR: Colleen SMITH,DhruvADM. DATE: 02/15/20 MR#: [id number] NOTE DATE: 05/03/20 RM#: [id number] TIME: 1325 [...] rce(s) Supporting Document(s) ID Date Data Source [id number] 05/02/2020 01:53:00 PM EDT [address] HEALTH PROGRESS NOTEPATIENT NAME: YARELI HATCH PHYSICIAN: BOGDAN MACIAS MDAUTHOR: Colleen SMITH,DhruvADM. DATE: 02/15/20 MR#: [id number] NOTE DATE: 05/02/20 RM#: [id number] TIME: 1355 [...] treatment plan, discussed with the [facility]reg[facility] as well as increasing [...] rce(s) Supporting Document(s) ID Date Data Source [id number] 05/01/2020 01:01:00 PM [facility] [address] HEALTH PROGRESS NOTEPATIENT NAME: YARELI HATCH PHYSICIAN: BOGDAN MACIAS, MDAUTHOR: Colleen SMITH,DhruvAPUJA. DATE: 02/15/20 MR#: [id number] NOTE DATE: 05/01/20 RM#: [id number] TIME: 1303 [...] rce(s) Supporting Document(s) ID Date Data Source [id number] 04/30/2020 01:52:00 PM EDT [address] HEALTH PROGRESS NOTEPATIENT NAME: YARELI HATCH PHYSICIAN: BOGDAN MACIAS MDAUTHOR: Colleen SMITH,DhruvADM. DATE: 02/15/20 MR#: [id number] NOTE DATE: 04/30/20 RM#: [id number] TIME: 1355 [...] rce(s) Supporting Document(s) ID Date Data Source [id number] 04/29/2020 11:16:00 AM EDT [place] [id number] HEALTH PROGRESS NOTEPATIENT NAME: YARELI HATCH PHYSICIAN: BOGDAN MACIAS MDAUTHOR: Colleen SMITH,DhruvADM. DATE: 02/15/20 MR#: [id number] NOTE DATE: 04/29/20 RM#: [id number] TIME: 1120 [...] current safe discharge plan regarding going to [facility] as well.Patient denied having any medication side [...] rce(s) Supporting Document(s) ID Date Data Source [id number] 04/26/2020 01:20:00 PM EDT [address] HEALTH PROGRESS NOTEPATIENT NAME: YARELI HATCH PHYSICIAN: BOGDAN MACIAS MDAUTHOR: Colleen SMITH,DhruvADM. DATE: 02/15/20 MR#: [id number] NOTE DATE: 04/26/20 RM#: [id number] TIME: 1323 [...] rce(s) Supporting Document(s) ID Date Data Source [id number] 04/25/2020 01:43:00 PM EDT [address] HEALTH PROGRESS NOTEPATIENT NAME: YARELI HATCH PHYSICIAN: BOGDAN MACIAS MDAUTHOR: Colleen SMITH,DhruvADM. DATE: 02/15/20 MR#: [id number] NOTE DATE: 04/25/20 RM#: [id number] TIME: 1345 [...] rce(s) Supporting Document(s) ID Date Data Source [id number] 04/24/2020 02:01:00 PM EDT [address] HEALTH PROGRESS NOTEPATIENT NAME: YARELI HATCH PHYSICIAN: BOGDAN MACIAS MDAUTHOR: Colleen SMITH,DhruvADM. DATE: 02/15/20 MR#: [id number] NOTE DATE: 04/24/20 RM#: [id number] TIME: 1404 [...] past as well. Patient wasalso educated [facility]. Denies having any medication [...] sent areferral to supportive environment such as [facility] and other places as well. Atthe same [...] SIGNED: 04/24/20 Electronically SignedTIME SIGNED: 1404 BOGDAN MACIAS MD Name Value Range Interpretation Code Description Data Stephanie rce(s) Supporting Document(s) ID Date Data Source [id number] 04/23/2020 01:23:00 PM EDT [address] HEALTH PROGRESS NOTEPATIENT NAME: YARELI HATCH PHYSICIAN: BOGDAN MACIAS MDAUTHOR: Colleen SMITH,DhruvADM. DATE: 02/15/20 MR#: [id number] NOTE DATE: 04/23/20 RM#: [id number] TIME: 1326 [...] safety as well. [facility] was [facility] to her which patient later on agreedfor further treatment to [facility] as well. Patient also reporting [...] treatment plan, discussed with the patientregarding [facility], continuing current medication [...] social work,physician's, familyRisk/benefits discussed side effectsADDENDUM: Colleen SMITH,[facility] on 04/23/20 at 1327Increase level of observation from level 1 to level 2DATE SIGNED: 04/23/20 Electronically SignedTIME SIGNED: 1326 BOGDAN MACIAS MD Name Value Range Interpretation Code Description Data Stephanie rce(s) Supporting Document(s) ID Date Data Source [id number] 04/22/2020 09:56:00 AM EDT [facility] HEALTH PROGRESS NOTEPATIENT NAME: YARELI HATCH [place]SAL[place]AD[place] PHYSICIAN: BOGDAN MACIAS MDAUTHOR: Pasquale WHITE,Ana. DATE: 02/15/20 MR#: [id number] NOTE DATE: 04/22/20 RM#: [id number] TIME: 1008 [...] (Clotrimazole) 0 DIRECTED TOPNasal Lubricant (Saline Nasal [place]) 0 Q3HPRN PRN NASALExaminationMusculoskeletalGait normalStation normalMental Status [...] rce(s) Supporting Document(s) ID Date Data Source [id number] 04/19/2020 01:13:00 PM EDT [place] [address]MENTAL HEALTH PROGRESS NOTEPATIENT NAME: YARELI HATCH PHYSICIAN: BOGDAN MACIAS, MDAUTHOR: Colleen SMITH,Sarahy. DATE: 02/15/20 MR#: [id number] NOTE DATE: 04/19/20 RM#: [id number] TIME: 1315 [...] (Clotrimazole) 0 DIRECTED TOPNasal Lubricant (Saline Nasal [place]) 0 Q3HPRN PRN NASALExaminationMusculoskeletalGait normalStation normalResultsResults Ordered/ReviewedLab Tests reviewedAssessment/PlanDiagnosis1. Major depressive disorderStatus Acute2. Suicide attemptStatus Acute3. Bipolar affective disorderCoordination of care provided with nursing staff, treatment teamRisk/benefits discussed side effectsDATE SIGNED: 04/19/20 Electronically SignedTIME SIGNED: 1315 BOGDAN MACIAS MD Name Value Range Interpretation Code Description Data Stephanie rce(s) Supporting Document(s) ID Date Data Source [id number] 04/18/2020 12:59:00 PM EDT [place] [id number] HEALTH PROGRESS NOTEPATIENT NAME: YARELI HATCH PHYSICIAN: BOGDAN MACIAS MDAUTHOR: Colleen SMITH,DhruvADM. DATE: 02/15/20 MR#: [id number] NOTE DATE: 04/18/20 RM#: [id number] TIME: 1301 [...] Ti mePulse Ox 99 04/18 1153B/P 112/71 04/183Temp 97.5 04/183Pulse 75 04/18 1153Resp 20 04/18 1153Current MedicationsLoperamide [...] (Clotrimazole) 0 DIRECTED TOPNasal Lubricant (Saline Nasal [place]) 0 Q3HPRN PRN NASALExaminationMusculoskeletalGait normalStation normalResultsLaboratory DataRecent [...] rce(s) Supporting Document(s) ID Date Data Source [id number] 04/17/2020 07:50:00 PM EDT [facility] [place] Name Value Range Interpretation Code Description Data Stephanie rce(s) Supporting Document(s) LIP 60.0 U/L 73-393 L [facility] ID Date Data Source [id number] 04/17/2020 07:50:00 PM EDT [facility] [place] Name Value Range Interpretation Code Description Data Stephanie rce(s) Supporting Document(s) GLU 113 mg/dL 70-110 H [facility] Patients taking Sulfasalazine may have f alsely depressedGlucose levels. Patients taking Sulfapyridine may havefalsely elevated Glucose levels. Patients should be drawnfor Glucose before the initial administration of eitherdrug. BUN 17 mg/dL 7-23 [facility] CRE 0.692 mg/dL 0.500-1.300 [facility] CHLORIDE 109 mmol/L 99-110 N [facility] NA 141 mmol/L 136-147 [facility] POTASSIUM 3.9 mmol/L 3.5-5.1 [facility] TCO2 24 mmol/L 20-33 [facility] ANION GAP 11.9 10.0-20.0 [facility] CA 9.1 mg/dL 8.3-10.7 [facility] ALKALINE PHOS 148 U/L 82-169 [facility] TP 8.0 g/dL 6.0-7.8 [facility] ALB 4.3 g/dL 3.5-5.0 [facility] ESRD Dialysis patient Albumin reference range: 2.9-4.4 g/dL GL 3.7 g/dL 2.3-3.5 H [facility] A/G 1.2 1.0-2.5 [facility] T. BILIRUBIN 0.3 mg/dL 0.1-1.1 [facility] [employer] [place] Total Bilirubin is n ot recommended forpatients undergoing treatment with eltrombopag (Promacta)due to the potential for falsely elevated results. ALTI 45 U/L 6-54 [facility] Patients taking Sulfasalazine and/or Sul fapyridine may havefalsely depressed ALT levels. Patients should be drawn forALT before the initial administration of either drug. AST 26 U/L 6-38 [facility] Patients taking Sulfasalazine and/or Sul fapyridine may havefalsely depressed AST levels. Patients should be drawn forAST before the initial administration of either drug. ID Date Data Source [id number] 04/17/2020 07:17:00 PM EDT [facility] Name Value Range Interpretation Code Description Data Stephanie rce(s) Supporting Document(s) HbA1C 4.70 % 3.8-5.6 [facility] Suggested Diagnosis HbA1c% Diabet ic >/= 6.5Prediabetes 5.7%-6.4%Normal < 5.7% ID Date Data Source [id number] 04/17/2020 06:39:00 PM EDT [facility] Name Value Range Interpretation Code Description Data Stephanie rce(s) Supporting Document(s) WBC 6.99 x10E3/uL 4.0-10.5 [facility] RBC 4.51 x10E6/uL 4.20-5.40 [facility] Hemoglobin 13.0 g/dL 12.0-16.0 [facility] Hematocrit 39.4 % 37.0-47.0 [facility] MCV 87.4 fL 81.0-99.0 [facility] MCH 28.8 pg 27.0-31.0 [facility] MCHC 33.0 g/dL 32.7-35.6 [facility] RDW 12.7 % 11.5-14.0 [facility] Platelet count 260 x10E3/uL 150-450 [facility] ital MPV 9.5 fl 6.9-9.5 [facility] Neutrophils 53.5 % 34-64 [facility] Lymphocytes 38.1 % 25-45 [facility] Monocytes 6.9 % 1.7-10.6 [facility] Eosinophils 0.9 % 0.4-7.0 [facility] Basophils 0.3 % 0.1-2.0 [facility] Imm. Gran. 0.3 % 0.1-2.0 [facility] Abs. Neutro. 3.75 x10E3/uL 1.2-7.6 [facility] Abs. Lymph. 2.66 x10E3/uL 1.0-3.5 [facility] Abs. [place]. 0.48 x10E3/uL 0.1-1.0 [facility] Abs. Eosin. 0.06 x10E3/uL 0.1-0.7 [facility] Abs. Baso. 0.02 x10E3/uL 0.0-0.1 [facility] Abs. Imm. Gran. 0.02 x10E3/uL 0.0-0.1 [facility] spital ANRBC% 0 % 0 [facility] ID Date Data Source [id number] 04/17/2020 05:59:00 PM EDT [facility] [address] [id number] REPORTPATIENT NAME: YARELI HATCH MR#: [id number] PHYSICIAN: BOGDAN MACIAS [facility]: Theresa Chowdhury DATE: 02/15/20 RM#: [id number] [...] judgement, abnormal insight, anxiousData ReviewLaboratory Datapending.ImagingEXAM# TYPE/EXAM [id number] US/U/S COMPLETE UPPER ABDOMENDATE OF EXAMINATION: 04/17/2020 [...] codePlan discussed with patientCase discussed with case managers, nursing staffDATE SIGNED: 04/17/20 Electronically SignedTIME SIGNED: 180 THERESA [employer] POISING-Janette COOPER Name Value Range Interpretation Code Description Data Stephanie rce(s) Supporting Document(s) ID Date Data Source [id number] 04/17/2020 01:29:00 PM EDT [facility] [place] [id number] HEALTH PROGRESS NOTEPATIENT NAME: YARELI HATCH PHYSICIAN: BOGDAN MACIAS, MDAUTHOR: Colleen SMITH,Sarahy. DATE: 02/15/20 MR#: [id number] NOTE DATE: 04/17/20 RM#: [id number] TIME: 1331 [...] she just wanted to have his number fromSplitforce which we discussed with the patient about [...] (Clotrimazole) 0 DIRECTED TOPNasal Lubricant (Saline Nasal [place]) 0 Q3HPRN PRN NASALExaminationMusculoskeletalGait normalStation normalResultsResults Ordered/ReviewedLab Tests reviewedAssessment/PlanDiagnosis1. Bipolar disorder, manicCoordination of care provided with nursing staff, treatment teamRisk/benefits discussed side effectsJustification for continued stay danger to self/others, behavior intolerableDATE SIGNED: 04/17/20 Electronically SignedTIME SIGNED: 1330 BOGDAN MACIAS MD Name Value Range Interpretation Code Description Data Stephanie rce(s) Supporting Document(s) ID Date Data Source [id number] 04/17/2020 01:00:00 PM EDT [facility] [place] Exam Number: [id number] OF EXAMINATIO N: 04/17/2020 8:00 EDTU/S COMPLETE [...] rce(s) Supporting Document(s) ID Date Data Source [id number] 04/16/2020 01:31:00 PM EDT [address] HEALTH PROGRESS NOTEPATIENT NAME: YARELI HATCH [facility] PHYSICIAN: BOGDAN MACIAS MDAUTHOR: Colleen SMITH,DhruvADM. DATE: 02/15/20 MR#: [id number] NOTE DATE: 04/16/20 RM#: 318EVALUATION TIME: 1336 [...] (Clotrimazole) 0 DIRECTED TOPNasal Lubricant (Saline Nasal [place]) 0 Q3HPRN PRN NASALIbuprofen (Motrin) 600 MG Q6HPRN PRN POExaminationMusculoskeletalGait normalStation normalResultsResults Ordered/ReviewedLab Tests reviewedAssessment/PlanDiagnosis1. Bipolar disorder, manicCoordination of care provided with nursing staff, treatment teamRisk/benefits discussed side eff ectsJustification for continued stay danger to self/othersDATE SIGNED: 04/16/20 Electronically SignedTIME SIGNED: 5421 BOGDAN MACIAS MD Name Value Range Interpretation Code Description Data Stephanie rce(s) Supporting Document(s) ID Date Data Source [id number] 04/15/2020 11:11:00 AM EDT [facility] [place] [address] PROGRESS NOTEPATIENT NAME: YARELI HATCH PHYSICIAN: BOGDAN MACIAS MDAUTHOR: Colleen SMITH,DhruvADM. DATE: 02/15/20 MR#: [id number] NOTE DATE: 04/15/20 RM#: 318EVALUATION TIME: 1114 [...] (Clotrimazole) 0 DIRECTED TOPNasal Lubricant (Saline Nasal [place]) 0 Q3HPRN PRN NASALIbuprofen (Motrin) 600 MG Q6HPRN PRN POExaminationMusculoskeletalGait normalStation normalResultsResults Ordered/ReviewedLab Tests reviewedAssessment/PlanDiagnosis1. Bipolar disorder, manicCoordination of care provided with nursing staff, treatment teamRisk/benefits discussed side effectsDATE SIGNED: 04/15/20 Electronically SignedTIME SIGNED: 1114 BOGDAN MACIAS MD Name Value Range Interpretation Code Description Data Stephanie rce(s) Supporting Document(s) ID Date Data Source [id number] 04/14/2020 12:01:00 PM EDT [facility] [address] HEALTH PROGRESS NOTEPATIENT NAME: YARELI HATCH PHYSICIAN: BOGDAN MACIAS MDAUTHOR: Colleen SMITH,Sarahy. DATE: 02/15/20 MR#: [id number] NOTE DATE: 04/14/20 #: 318EVALUATION TIME: 1203 [...] (Clotrimazole) 0 DIRECTED TOPNasal Lubricant (Saline Nasal [place]) 0 Q3HPRN PRN NASALIbuprofen (Motrin) 600 MG [...] rce(s) Supporting Document(s) ID Date Data Source [id number] 04/12/2020 11:39:00 AM EDT [address] HEALTH PROGRESS NOTEPATIENT NAME: YARELI HATCH PHYSICIAN: BOGDAN MACIAS MDAUTHOR: Colleen SMITH,DhruvADM. DATE: 02/15/20 MR#: [id number] NOTE DATE: 04/12/20 #: 318EVALUATION TIME: 1141 is 19-year-old female, currently single, lives in a motel,past psych history of bipolar disorderCC/Hx Present IllnessThe patient was referred for evaluation because pt having suicidal ideations.Events Since Last EntryPatient reporting feeling somewhat okay, she stated that at this point shefeels comfortable going back to [facility] as well as, [facility] as well due to ongoing mood [...] (Clotrimazole) 0 DIRECTED TOPNasal Lubricant (Saline Nasal [place]) 0 Q3HPRN PRN NASALIbuprofen (Motrin) 600 MG [...] rce(s) Supporting Document(s) ID Date Data Source [id number] 04/11/2020 01:20:00 PM EDT [address] HEALTH PROGRESS NOTEPATIENT NAME: YARELI HACTH PHYSICIAN: BOGDAN MACIAS MDAUTHOR: Colleen SMITH,DhruvADM. DATE: 02/15/20 MR#: [id number] NOTE DATE: 04/11/20 RM#: 318EVALUATION TIME: 1323 [...] point we discussedwith the patient regarding [facility] due [...] (Clotrimazole) 0 DIRECTED TOPNasal Lubricant (Saline Nasal [place]) 0 Q3HPRN PRN NASALIbuprofen (Motrin) 600 MG [...] rce(s) Supporting Document(s) ID Date Data Source [id number] 04/10/2020 01:13:00 PM EDT [place] [id number] PROGRESS NOTEPATIENT NAME: YARELI HATCH PHYSICIAN: BOGDAN MACIAS MDAUTHOR: Colleen SMITH,DhruvADM. DATE: 02/15/20 MR#: [id number] NOTE DATE: 04/10/20 RM#: 318EVALUATION TIME: 1317 [...] continue current treatment plan, patient is recommended [facility] in 6 months retention due to ongoing [...] (Clotrimazole) 0 DIRECTED TOPNasal Lubricant (Saline Nasal [place]) 0 Q3HPRN PRN NASALIbuprofen (Motrin) 600 MG [...] rce(s) Supporting Document(s) ID Date Data Source [id number] 04/09/2020 01:48:00 PM EDT [facility] PROGRESS NOTEPATIENT NAME: YARELI HATCH PHYSICIAN: BOGDAN MACIAS, MDAUTHOR: Colleen SMITH,DhruvADM. DATE: 02/15/20 MR#: [id number] NOTE DATE: 04/09/20 RM#: 318EVALUATION TIME: 1353 is 19-year-old female, currently single, lives in a motel,past psych history of bipolar disorderCC/Hx Present IllnessThe patient was referred for evaluation because pt having suicidal ideations.Events Since Last EntryPatient was somewhat upset later on expressing that she wanted to stay here andshe does not feel comfortable going to [facility] where she came from as well. Wediscussed [...] sort of secondary gain [facility]. Offered patient all available options which [facility] bansal seems to be refusingand some of other places patient was not accepted due to prior history as well.At this point [facility] is also involved, also planning to add voluntaryhospitalization and providing all available support that patient can get aswell. Discussed with the patient about maintaining her [...] (Clotrimazole) 0 DIRECTED TOPNasal Lubricant (Saline Nasal [place]) 0 Q3HPRN PRN NASALIbuprofen (Motrin) 600 MG [...] rce(s) Supporting Document(s) ID Date Data Source [id number] 04/08/2020 03:04:00 PM EDT [facility] [address] PROGRESS NOTEPATIENT NAME: YARELI HATCH PHYSICIAN: BOGDAN MACIAS MDAUTHOR: Colleen SMITH,Sarahy. DATE: 02/15/20 MR#: [id number] NOTE DATE: 04/08/20 RM#: 318EVALUATION TIME: 1506 [...] (Clotrimazole) 0 DIRECTED TOPNasal Lubricant (Saline Nasal [place]) 0 Q3HPRN PRN NASALIbuprofen (Motrin) 600 MG [...] side effectsDATE SIGNED: 04/08/20 Electronically SignedTIME SIGNED: 1505 BOGDAN MACIAS MD Name Value Range Interpretation Code Description Data Stephanie rce(s) Supporting Document(s) ID Date Data Source [id number] 04/05/2020 02:20:00 PM EDT [address] HEALTH PROGRESS NOTEPATIENT NAME: YARELI HATCH PHYSICIAN: BOGDAN MACIAS MDAUTHOR: Ana Win. DATE: 02/15/20 MR#: [id number] NOTE DATE: 04/05/20 RM#: 318EVALUATION TIME: 1427 is 19-year-old female, currently single, lives in a mot,past psych history of bipolar disorderCC/Hx Present IllnessThe patient was referred for evaluation because pt having suicidal ideations.Events Since Last EntryI saw Scottsteff on the day unit this morning. Was [...] (Clotrimazole) 0 DIRECTED TOPNasal Lubricant (Saline Nasal [place]) 0 Q3HPRN PRN NASALIbuprofen (Motrin) 600 MG [...] rce(s) Supporting Document(s) ID Date Data Source [id number] 04/05/2020 01:38:00 PM EDT [address] HEALTH PROGRESS NOTEPATIENT NAME: YARELI HATCH CATSALVADOR PHYSICIAN: BOGDAN MACIAS, MDAUTHOR: Colleen SMITH,DhruvAPUJA. DATE: 02/15/20 MR#: [id number] NOTE DATE: 04/05/20 RM#: 318EVALUATION TIME: 1342 [...] (Clotrimazole) 0 DIRECTED TOPNasal Lubricant (Saline Nasal [place]) 0 Q3HPRN PRN NASALIbuprofen (Motrin) 600 MG [...] SIGNED: 04/05/20 Electronically SignedTIME SIGNED: 1342 BOGDAN MACIAS MD Name Value Range Interpretation Code Description Data Stephanie rce(s) Supporting Document(s) ID Date Data Source [id number] 04/04/2020 01:16:00 PM EDT [address] PROGRESS NOTEPATIENT NAME: YARELI HATCH PHYSICIAN: BOGDAN MACIAS MDAUTHOR: Colleen SMITH,Sarahy. DATE: 02/15/20 MR#: [id number] NOTE DATE: 04/04/20 RM#: 318EVALUATION TIME: 1321 is 19-year-old female, currently single, lives in a motel,past psych history of bipolar disorderCC/Hx Present IllnessThe patient was referred for evaluation because pt having suicidal ideations.Events Since Last EntryPatient reported earlier to the instructor wastewater treatment plant regarding that she haddifficulty with her mood [...] same time we willconsider to [facility] better compliance and plan to discontinueall [...] (Clotrimazole) 0 DIRECTED TOPNasal Lubricant (Saline Nasal [place]) 0 Q3HPRN PRN NASALClonidine (Catapres) 0.1 MG [...] rce(s) Supporting Document(s) ID Date Data Source [id number] 04/04/2020 11:16:00 AM EDT [address] HEALTH PROGRESS NOTEPATIENT NAME: MAIMEYARELI YA PHYSICIAN: BOGDAN MACIAS MDAUTHOR: Ana Win. DATE: 02/15/20 MR#: [id number] NOTE DATE: 04/04/20 RM#: 318EVALUATION TIME: 1120 [...] (Clotrimazole) 0 DIRECTED TOPNasal Lubricant (Saline Nasal [place]) 0 Q3HPRN PRN NASALClonidine (Catapres) 0.1 MG [...] nursing staff, treatment teamRisk/benefits discussed side effectsADDENDUM: Frantz Win on 04/04/20 at 1120Shortly after seeing Yareli [...] rce(s) Supporting Document(s) ID Date Data Source [id number] 04/03/2020 01:35:00 PM EDT [place], [place] [address] PROGRESS NOTEPATIENT NAME: YARELI HATCH CATTENGIOVANNY PHYSICIAN: BOGDAN MACIAS MDAUTHOR: Colleen SMITH,Sarahy. DATE: 02/15/20 MR#: [id number] NOTE DATE: 04/03/20 RM#: 318EVALUATION TIME: 1338 [...] not feel comfortable returning back [facility] wherethere are bunch of drug addicts and [...] (Clotrimazole) 0 DIRECTED TOPNasal Lubricant (Saline Nasal [place]) 0 Q3HPRN PRN NASALClonidine (Catapres) 0.1 MG [...] rce(s) Supporting Document(s) ID Date Data Source [id number] 04/02/2020 11:54:00 AM EDT [address] HEALTH PROGRESS NOTEPATIENT NAME: MAMIEYARELISOM YA PHYSICIAN: BOGDAN MACIAS MDAUTHOR: Ana Win. DATE: 02/15/20 MR#: [id number] NOTE DATE: 04/02/20 RM#: 318EVALUATION TIME: 1638 [...] when the new admission was put in thesala room. She admitted to walking out of [...] her shirt. She ismalodorous as well. Yareli walters tone is angry and her volume is [...] rce(s) Supporting Document(s) ID Date Data Source [id number] 04/03/2020 07:41:00 AM EDT [place], [place] [address]PATIENT NAME: MAMIEDENISSE CAPELLANYLA Janette Jensen#: [id number] PHYSICIAN: BOGDAN MACIAS MD ADM. DATE: 02/15/20PROGRESS NOTE DATE: 04/02/20 .#: 318ACCOUNT #: [id number] NOTEIDENTIFICATION: A 19-year-old female with schizoaffective disorder,borderline personality disorder.VITAL SIGNS: Temperature of 97, pulse of 105, respirations 16, blood hqsdcmli638/83.SUBJECTIVE: The patient came to the interview room. [...] Dictated: 04/02/2020 11:24:04Date Transcribed: 04/03/2020 06:41:37JV/Arti #: [id number]: 04/02/20 1124 Electronically SignedTRANS:04/03/20 0741 FILI CANELA MDTRANS BY:IATDATE SIGNED:04/03/20REPORT COPY TO: Name Value Range Interpretation Code Description Data Stephanie rce(s) Supporting Document(s) ID Date Data Source [id number] 04/01/2020 02:07:00 PM EDT [address] PROGRESS NOTEPATIENT NAME: YARELI HATCH [facility] PHYSICIAN: BOGDAN MACIAS MDAUTHOR: Ana Win. DATE: 02/15/20 MR#: [id number] NOTE DATE: 04/01/20 RM#: 318EVALUATION TIME: 1410 [...] violated, and that she would notify the regulatory attorney because sheis transgender. Yareli disclosed that [...] rce(s) Supporting Document(s) ID Date Data Source [id number] 04/02/2020 03:13:00 AM EDT [place], [place] [address]PATIENT NAME: YARELI HATCH Janette Jensen#: [id number] PHYSICIAN: BOGDAN MACIAS MD ADM. DATE: 02/15/20PROGRESS NOTE DATE: 04/01/20 .#: 318ACCOUNT #: [id number] NOTEIDENTIFICATION: A 19-year-old female with schizoaffective disorder, [...] Dictated: 04/01/2020 10:44:46Date Transcribed: 04/02/2020 02:13:19JV/GBJob #: [id number]: 04/01/20 1044 Electronically SignedTRANS:04/02/20 0313 FILI CANELA MDTRANS BY:TONDAALMA SIGNED:04/02/20REPORT COPY TO: Name Value Range Interpretation Code Description Data Stephanie rce(s) Supporting Document(s) ID Date Data Source [id number] 03/29/2020 11:29:00 AM EDT [address] HEALTH PROGRESS NOTEPATIENT NAME: YARELI HATCH PHYSICIAN: BOGDAN MACIAS MDAUTHOR: Colleen SMITH,DhruvADM. DATE: 02/15/20 MR#: [id number] NOTE DATE: 03/29/20 RM#: 318EVALUATION TIME: 1131 is 19-year-old female, currently single, [facility], past psych history of bipolar disorderCC/Hx [...] safe dischargeplan, currently waiting on supportive environment, [facility] has been involved aswell.ObjectiveVital SignsVital Signs-LastResult Date TimeTemp 98.9 03/29 0647Pulse Ox 99 03/28 1100B/P 96/61 03/28 1100Pulse 98 03/28 1100Resp 16 03/28 1100Current MedicationsSertraline HCl (Zoloft) 75 MG DAILY POBenzocaine/Pectin/Carboxymethylcell (Cepastat) 1 JHOAN Q2HPRN PRN POClotrimazole (Clotrimazole) 0 DIRECTED TOPNasal Lubricant (Saline Nasal [place]) 0 Q3HPRN PRN NASALClonidine (Catapres) 0.1 MG [...] rce(s) Supporting Document(s) ID Date Data Source [id number] 03/28/2020 12:37:00 PM EDT [place] [id number]ALTH PROGRESS NOTEPATIENT NAME: YARELI HATCH PHYSICIAN: BOGDAN MACIAS, MDAUTHOR: Colleen SMITH,DhruvADM. DATE: 02/15/20 MR#: [id number] NOTE DATE: 03/28/20 RM#: 318EVALUATION TIME: 1238 is 19-year-old female, currently single, well [facility], past psych history of bipolar disorderCC/Hx [...] (Clotrimazole) 0 DIRECTED TOPNasal Lubricant (Saline Nasal [place]) 0 Q3HPRN PRN NASALClonidine (Catapres) 0.1 MG [...] rce(s) Supporting Document(s) ID Date Data Source [id number] 03/27/2020 01:16:00 PM EDT [address] PROGRESS NOTEPATIENT NAME: YARELI HATCH PHYSICIAN: BOGDAN MACIAS MDAUTHOR: Colleen SMITH,DhruvADM. DATE: 02/15/20 MR#: [id number] NOTE DATE: 03/27/20 RM#: 318EVALUATION TIME: 1318 is 19-year-old female, currently single, [facility] past psych history of bipolar disorderCC/Hx Present [...] (Clotrimazole) 0 DIRECTED TOPNasal Lubricant (Saline Nasal [place]) 0 Q3HPRN PRN NASALClonidine (Catapres) 0.1 MG [...] rce(s) Supporting Document(s) ID Date Data Source [id number] 03/26/2020 02:18:00 PM EDT [address] HEALTH PROGRESS NOTEPATIENT NAME: YARELI HATCH PHYSICIAN: BOGDAN MACIAS MDAUTHOR: Colleen SMITH,DhruvADM. DATE: 02/15/20 MR#: [id number] NOTE DATE: 03/26/20 RM#: 318EVALUATION TIME: 1419 is 19-year-old female, currently single, well [facility], past psych history of bipolar disorderCC/Hx [...] Signs-LastResult Date TimeTemp 98.3 03/26 0642B/P 119/72 03/258Pulse 86 03/258Pulse Ox 100 03/25 1200Resp 20 03/25 1200Current MedicationsBenzocaine/Pectin/Carboxymethylcell (Cepastat) 1 JHOAN Q2HPRN PRN POClotrimazole (Clotrimazole) 0 DIRECTED TOPNasal Lubricant (Saline Nasal [place]) 0 Q3HPRN PRN NASALClonidine (Catapres) 0.1 MG [...] side effectsDATE SIGNED: 03/26/20 Electronically SignedTIME SIGNED: 1419 BOGDAN MACIAS MD Name Value Range Interpretation Code Description Data Stephanie rce(s) Supporting Document(s) ID Date Data Source [id number] 03/25/2020 01:50:00 PM EDT [facility] PROGRESS NOTEPATIENT NAME: YARELI HATCH PHYSICIAN: BOGDAN MACIAS MDAUTHOR: Colleen SMITH,DhruvADM. DATE: 02/15/20 MR#: [id number] NOTE DATE: 03/25/20 RM#: 318EVALUATION TIME: 1352 is 19-year-old female, currently single, well [facility], past psych history of bipolar disorderCC/Hx Present IllnessThe patient was referred for evaluation because pt having suicidal ideations.Events Since Last EntryPatient reporting feeling somewhat okay, expressing that she has been feelingfine and she is open to continue taking her medication as well. Still waitingfor safe discharge plan as well, [facility] is involved, denied having any medicationside effect [...] (Clotrimazole) 0 DIRECTED TOPNasal Lubricant (Saline Nasal [place]) 0 Q3HPRN PRN NASALClonidine (Catapres) 0.1 MG [...] rce(s) Supporting Document(s) ID Date Data Source [id number] 03/22/2020 01:42:00 PM EDT [address] HEALTH PROGRESS NOTEPATIENT NAME: YARELI HATCH PHYSICIAN: BOGDAN MACIAS MDAUTHOR: Colleen SMITH,DhruvADM. DATE: 02/15/20 MR#: [id number] NOTE DATE: 03/22/20 RM#: 318EVALUATION TIME: 1344 is 19-year-old female, currently single, well [facility], past psych history of bipolar disorderCC/Hx [...] rce(s) Supporting Document(s) ID Date Data Source [id number] 03/21/2020 01:39:00 PM EDT [facility] HEALTH PROGRESS NOTEPATIENT NAME: YARELI HATCH PHYSICIAN: BOGDAN MACIAS MDAUTHOR: Colleen SMITH,Sarahy. DATE: 02/15/20 MR#: [id number] NOTE DATE: 03/21/20 RM#: 318EVALUATION TIME: 1341 is 19-year-old female, currently single, well [facility], past psych history of bipolar disorderCC/Hx Present IllnessThe patient was referred for evaluation because pt having suicidal ideations.Events Since Last EntryPatient was seen on other side with [facility], patient reportedfeeling okay, but she stated that [...] rce(s) Supporting Document(s) ID Date Data Source [id number] 03/20/2020 01:45:00 PM EDT [address] PROGRESS NOTEPATIENT NAME: YARELI HATCH PHYSICIAN: BOGDAN MACIAS MDAUTHOR: Colleen SMITH,DhruvADM. DATE: 02/15/20 MR#: [id number] NOTE DATE: 03/20/20 RM#: 318EVALUATION TIME: 1348 is 19-year-old female, currently single, well [facility], past psych history of bipolar disorderCC/Hx Present IllnessThe patient was referred for evaluation because pt having suicidal ideations.Events Since Last EntryPatient remained irritable, patient also stated that she does not feelcomfortable taking any psychotropic medication. She was also stating that shedoes not feel comfortable returning back to [facility] or any DSS place or any otherplace [...] rce(s) Supporting Document(s) ID Date Data Source [id number] 03/20/2020 02:30:00 AM EDT [place] [id number] NAME: YARELI HATCHRRoge#: [id number] PHYSICIAN: BOGDAN MACIAS MD ADM. DATE: 02/15/20PROGRESS NOTE DATE: 03/19/20 RM.#: 318ACCOUNT #: [id number] NOTEIDENTIFICATION: A 19-year-old female with schizoaffective disorder.VITAL [...] Dictated: 03/19/2020 10:55:33Date Transcribed: 03/20/2020 01:30:40JV/GBJob #: [id number]: 03/19/20 1055 Electronically SignedTRANS:03/20/20 0230 FILI CANELA MDTRANS BY:TONDAALMA SIGNED:03/20/20REPORT COPY TO: Name Value Range Interpretation Code Description Data Stephanie rce(s) Supporting Document(s) ID Date Data Source [id number] 03/18/2020 02:02:00 PM EDT [address] [address] PROGRESS NOTEPATIENT NAME: YARELI HATCH CATTENDING PHYSICIAN: BOGDAN MACIAS MDAUTHOR: Surendra SMITH,P.ADM. DATE: 02/15/20 MR#: [id number] NOTE DATE: 03/18/20 RM#: 318EVALUATION TIME: 1407 is 19-year-old female, currently single, well [facility], past psych history of bipolar disorderCC/Hx [...] (finding) comp leted Ex- drinker (finding) [facility] Tobacco use and exposure 04/05/2021 12:00:00 AM EDT Never used co mpleted Never used [facility] Cigarette pack-years [facility]/05[facility] current (pack per day) - Reported 04/05/20 21 12:00:00 AM EDT [facility] Smoking 04/05/2021 12:00:00 AM EDT Current every day smoker co mpleted Current every day smoker [facility] Smoking 03/20/2021 12:00:00 AM EDT Unknown if ever smoked comp leted Unknown if ever smoked [facility] ([facility] Alcohol intake 03/13/2021 12:00:00 AM EDT Ex-drinker (finding) comp leted Ex- drinker (finding) [facility] Tobacco use and exposure 03/13/2021 12:00:00 AM EDT Never used co mpleted Never used [facility] Cigarettes smoked current (pack per day) - Reported 03/13/20 12:00:00 AM EDT UNK completed [facility] Smoking 03/13/2021 12:00:00 AM EDT Current every day smoker co mpleted Current every day smoker [facility] Alcohol intake 02/21/2021 12:00:00 AM EDT Ex-drinker (finding) comp leted Ex- drinker (finding) [facility] 12/22/2020 12:00:00 AM EDT Cigarette Smoker completed Cig arette Smoker [facility] 12/22/2020 12:00:00 AM EDT Current every day smoker co mpleted Current every day smoker [facility] Smoking 11/13/2020 12:00:00 AM EDT Unknown if ever smoked comp leted Unknown if ever smoked [facility] ([facility]) Smoking 08/27/2020 12:00:00 AM EST Unknown if ever smoked comp leted Unknown if ever smoked [facility] ([facility]) Smoking 08/23/2020 12:00:00 AM EST Unknown if ever smoked comp leted Unknown if ever smoked [facility] ([facility]) Smoking 06/24/2020 12:00:00 AM EST Unknown if ever smoked comp leted Unknown if ever smoked [facility] ([facility]) Vital Signs ID Date Data Source UNK Name Value Range Interpretation Code Description Data Source(s) Systolic blood pressure 129 mm[Hg] 129 mm[Hg] M [facility] Diastolic blood pressure 90 mm[Hg] 90 mm[Hg] [facility] Heart rate 72 /min 72 /min [facility] Respiratory rate 16 /min 16 /min [facility] Oxygen saturation in Arterial blood by Pulse oximetry 95 % 95 % [facility] Body temperature 36.89 Patricia 36.89 Patricia [facility] Body weight 137.077 kg 137.077 kg [facility] Body mass index (BMI) [Ratio] 48.78 kg/m2 48.78 kg/m2 [facility] Body height 167.6 cm 167.6 cm [facility] ID Date Data Source [id number] 05/15/2021 06:49:00 PM EDT [facility] [place] Name Value Range Interpretation Code Description Data Source(s) [facility] 167.64 centimeters 167.64 centimeter [facility] ID Date Data Source [id number] 05/14/2021 05:46:00 PM EDT [facility] [place] Name Value Range Interpretation Code Description Data Source(s) WEIGHT 104.545 kilos 104.545 [facility] HEIGHT 167.64 centimeters 167.64 centimeter [facility] ID Date Data Source [id number] 05/05/2021 08:15:00 PM EDT [facility] Name Value Range Interpretation Code Description Data Source(s) Weight Measurement Method 8 8 [facility] Weight 3680 3680 [facility] pital Temperature Source 7 7 [facility] Temperature 99.1 99.1 [facility] spital Respiratory Effort 1 1 [facility] Respiratory Rate 18 18 [facility] Pulse Assessment Method 4 4 [facility] Pulse Rate 66 66 [facility]ital Height 66 66 [facility] 128/55 128/55 [facility] ID Date Data Source [id number] 05/14/2021 12:07:00 PM EDT [facility] [place] Name Value Range Interpretation Code Description Data Source(s) WEIGHT 104 [facility] 167.64 centimeters 167.64 centimeter [facility] ID Date Data Source [id number] 05/01/2021 09:46:00 AM EDT [facility] spital Name Value Range Interpretation Code Description Data Source(s) Weight Measurement Method 8 8 [facility] Weight 3668.492 3668.492 [facility] pital Temperature 98.4 98.4 [facility] spital Respiratory Rate 16 16 [facility] Pulse Assessment Method 4 4 [facility] Pulse Rate 68 68 [facility] pital Height 66 66 [facility] pital Blood Pressure 113/59 113/59 [facility] Weight Measurement Method 8 8 [facility] Weight 3668.492 3668.492 [facility] pital Height 66 66 [facility] pital ID Date Data Source [id number] 05/01/2021 01:52:00 AM EDT [facility] spital Name Value Range Interpretation Code Description Data Source(s) Weight Measurement Method 8 8 [facility] Weight 3679.991 3679.991 [facility] pital Respiratory Effort 1 1 [facility] Respiratory Rate 18 18 [facility] Height 66 66 [facility] pital Weight Measurement Method 8 8 [facility] Weight 3679.991 3679.991 [facility] pital Respiratory Effort 1 1 [facility] Respiratory Rate 18 18 [facility] Height 66 66 [facility] pital ID Date Data Source [id number] 05/07/2021 10:54:00 AM EDT [facility] spital Name Value Range Interpretation Code Description Data Source(s) Weight Measurement Method 8 8 [facility] Weight 3680 3680 [facility] pital Temperature Source 7 7 [facility] Temperature 98.8 98.8 [facility] spital Respiratory Effort 1 1 [facility] Respiratory Rate 18 18 [facility] Pulse Assessment Method 4 4 [facility] Pulse Rate 103 103 [facility] pital Height 66 66 [facility] pital Blood Pressure 162/60 162/60 [facility] ID Date Data Source [id number] 05/13/2021 02:42:00 PM EDT [facility] Name Value Range Interpretation Code Description Data Source(s) WEIGHT 150 kilos 150 kilos [facility] HEIGHT 172.72 centimeters 172.72 centimeter [facility] ID Date Data Source [id number] 05/13/2021 02:02:00 PM EDT [facility] Name Value Range Interpretation Code Description Data Source(s) WEIGHT 136.6 kilos 136.6 kilos [facility] HEIGHT 167.64 centimeters 167.64 centimeter s [facility] WEIGHT 303 [facility]ilos 303 [facility] 167.64 centimeters 167.64 centimeter [facility] ID Date Data Source [id number] 04/24/2021 11:09:00 AM EDT [facility] Name Value Range Interpretation Code Description Data Source(s) Weight Measurement Method 8 8 [facility] Weight 3680 3680 [facility] pital Temperature Source 7 7 [facility] Temperature 98.0 98.0 [facility] Respiratory Effort 1 1 [facility] Respiratory Rate 18 18 [facility] Pulse Assessment Method 4 4 [facility] Pulse Rate 88 88 [facility]ital Height 66 66 [facility] 147/57 147/57 [facility] ID Date Data Source [id number] 04/28/2021 04:53:00 PM EDT [facility] Name Value Range Interpretation Code Description Data Source(s) Weight Measurement Method 8 8 [facility] Weight 3679.074 3679.074 [facility] pital Temperature Source 7 7 [facility] Temperature 98.2 98.2 [facility] Respiratory Effort 1 1 [facility] Respiratory Rate 16 16 [facility] Pulse Assessment Method 4 4 [facility] Pulse Rate 80 80 [facility] pital Height 66 66 [facility] pital Blood Pressure 132/72 132/72 [facility] ID Date Data Source [id number] 04/16/2021 12:24:00 PM EDT [facility] Name Value Range Interpretation Code Description Data Source(s) Weight Measurement Method 8 8 [facility] Weight 3680 3680 [facility] pital Temperature Source 7 7 [facility] Temperature 98.1 98.1 [facility] Respiratory Effort 1 1 [facility] Respiratory Rate 16 16 [facility] Pulse Assessment Method 4 4 [facility] Pulse Rate 98 98 [facility] Height 66 66 [facility] pital Blood Pressure 111/58 111/58 [facility] Weight Measurement Method 8 8 [facility] Weight 3680 3680 [facility] pital Temperature Source 7 7 [facility] Temperature 98.1 98.1 [facility] Res[facility] Effort 1 1 [facility] Respiratory Rate 16 16 [facility] Pulse Assessment Method 4 4 [facility] Pulse Rate 98 98 [facility] pital Height 66 66 [facility] pital Blood Pressure 111/58 111/58 [facility] ID Date Data Source [id number] 04/19/2021 01:44:00 AM EDT [facility] Name Value Range Interpretation Code Description Data Source(s) WEIGHT 105 kilos 105 kilos [facility] HEIGHT 167.64 centimeters 167.64 centimeter [facility] ID Date Data Source [id number] 04/19/2021 01:44:00 AM EDT [facility] Name Value Range Interpretation Code Description Data Source(s) WEIGHT 131 kilos 131 kilos [facility] HEIGHT 170.18 centimeters 170.18 centimeter [facility] ID Date Data Source [id number] 05/11/2021 06:14:00 PM EDT [facility] Name Value Range Interpretation Code Description Data Source(s) Weight Measurement Method 8 8 [facility] Weight 3520 3520 [facility] pital Temperature Source 7 7 [facility] Temperature 97.4 97.4 [facility] Respiratory Effort 1 1 [facility] Respiratory Rate 18 18 [facility] Pulse Assessment Method 4 4 [facility] Pulse Rate 94 94 [facility] pital Height 66 66 [facility] Pressure 136/75 136/75 [facility] Weight Measurement Method 8 8 [facility] Weight 3520 3520 [facility] pital Temperature Source 1 1 [facility] Temperature 98.5 98.5 [facility] Respiratory Effort 1 1 [facility] Respiratory Rate 16 16 [facility] Pulse Assessment Method 4 4 [facility] Pulse Rate 86 86 [facility] pital Height 66 66 [facility] pital Blood Pressure 131/98 131/98 [facility] Weight Measurement Method 8 8 [facility] Weight 3520 3520 [facility] pital Temperature Source 1 1 [facility] Temperature 98.5 98.5 [facility] spital Respiratory Effort 1 1 [facility] Respiratory Rate 18 18 [facility] Pulse Assessment Method 4 4 [facility] Pulse Rate 108 108 [facility] pital Height 66 66 [facility] pital Blood Pressure 131/92 131/92 [facility] ID Date Data Source [id number] 05/09/2021 04:32:00 PM EDT [facility] spital Name Value Range Interpretation Code Description Data Source(s) Weight Measurement Method 8 8 [facility] Weight 3680 3680 [facility] pital Temperature Source 7 7 [facility] Temperature 99.0 99.0 [facility] spital Respiratory Effort 1 1 [facility] Respiratory Rate 18 18 [facility] Pulse Assessment Method 4 4 [facility] Pulse Rate 102 102 [facility] pital Height 66 66 [facility] pital Blood Pressure 141/79 141/79 [facility] Weight Measurement Method 8 8 [facility] Weight 3680 3680 [facility] pital Temperature Source 7 7 [facility] Temperature 98 98 [facility] spital Respiratory Effort 1 1 [facility] Respiratory Rate 16 16 [facility] Pulse Assessment Method 4 4 [facility] Pulse Rate 122 122 [facility] pital Height 66 66 [facility] pital Blood Pressure 149/85 149/85 [facility] ID Date Data Source [id number] 03/25/2021 07:15:08 AM EDT [facility] Hospital Name Value Range Interpretation Code Description Data Source(s) [facility] ID Date Data Source [id number] 05/09/2021 04:49:00 PM EDT [facility] Name Value Range Interpretation Code Description Data Source(s) Weight Measurement Method 8 8 [facility] Weight 3680 3680 [facility] pital Temperature Source 7 7 [facility] Temperature 97.3 97.3 [facility] Respiratory Rate 18 18 [facility] Pulse Rate 106 106 [facility] Height 66 66 [facility] Blood Pressure 122/83 122/83 [facility] Weight Measurement Method 8 8 [facility] Weight 3680 3680 [facility] pital Temperature Source 7 7 [facility] Temperature 97.3 97.3 [facility] spital Respiratory Rate 18 18 [facility] Pulse Rate 106 106 [facility] pital Height 66 66 [facility] pital Blood Pressure 122/83 122/83 [facility] ID Date Data Source [id number] 05/10/2021 06:49:00 PM EDT [facility] Name Value Range Interpretation Code Description Data Source(s) Weight Measurement Method 8 8 [facility] Weight 3680 3680 [facility] pital Temperature Source 7 7 [facility] Temperature 99.8 99.8 [facility] Respiratory Effort 1 1 [facility] Respiratory Rate 18 18 [facility] Pulse Rate 117 117 [facility] pital Height 66 66 [facility] pital Blood Pressure 142/72 142/72 [facility] Weight Measurement Method 8 8 [facility] Weight 3680 3680 [facility] pital Temperature Source 7 7 [facility] Temperature 99.8 99.8 [facility] Respiratory Effort 1 1 [facility] Respiratory Rate 18 18 [facility] Pulse Rate 117 117 [facility] Height 66 66 [facility] pital Blood Pressure 142/72 142/72 [facility] ID Date Data Source [id number] 05/09/2021 02:14:00 PM EDT [facility] Name Value Range Interpretation Code Description Data Source(s) Weight Measurement Method 8 8 [facility] Weight 3680 3680 [facility] pital Temperature Source 7 7 [facility] Temperature 97.3 97.3 [facility] spital Respiratory Rate 16 16 [facility] Pulse Assessment Method 4 4 [facility] Pulse Rate 68 68 [facility] pital Height 66 66 [facility] pital Blood Pressure 113/59 113/59 [facility] Weight Measurement Method 8 8 [facility] Weight 3680 3680 [facility] pital Temperature Source 7 7 [facility] Temperature 98.7 98.7 [facility] spital Respiratory Rate 20 20 [facility] Pulse Rate 110 110 [facility] pital Height 66 66 [facility] pital Blood Pressure 135/70 135/70 [facility] ID Date Data Source [id number] 05/10/2021 09:58:00 AM EDT [facility] spital Name Value Range Interpretation Code Description Data Source(s) Weight Measurement Method 8 8 [facility] Weight 3680 3680 [facility] pital Temperature Source 7 7 [facility] Temperature 98.4 98.4 [facility] spital Respiratory Effort 1 1 [facility] Respiratory Rate 16 16 [facility] Pulse Assessment Method 4 4 [facility] Pulse Rate 78 78 [facility] pital Height 66 66 [facility] pital Blood Pressure 129/88 129/88 [facility] Weight Measurement Method 8 8 [facility] Weight 8113.011 8113.011 [facility] pital Temperature Source 7 7 [facility] Temperature 98.4 98.4 [facility] spital Respiratory Effort 1 1 [facility] Respiratory Rate 18 18 [facility] Pulse Assessment Method 4 4 [facility] Pulse Rate 109 109 [facility] pital Height 66 66 [facility] pital Blood Pressure 145/74 145/74 [facility] ID Date Data Source [id number] 02/26/2021 08:59:13 AM EDT [facility] Hospital Name Value Range Interpretation Code Description Data Source(s) TRANSFER FROM [facility] ID Date Data Source [id number] 05/09/2021 08:17:00 PM EDT [facility] sp[facility] Name Value Range Interpretation Code Description Data Source(s) Weight Measurement Method 8 8 [facility] Weight 3680 3680 [facility] pital Temperature Source 7 7 [facility] Temperature 98.3 98.3 [facility] spital Respiratory Effort 1 1 [facility] Respiratory Rate 20 20 [facility] Pulse Assessment Method 4 4 [facility] Pulse Rate 108 108 [facility] pital Height 66 66 [facility] pital Blood Pressure 124/58 124/58 [facility] Weight Measurement Method 8 8 [facility] Weight 3680 3680 [facility] pital Temperature Source 7 7 [facility] Temperature 96.7 96.7 [facility] spital Respiratory Effort 1 1 [facility] Respiratory Rate 18 18 [facility] Pulse Assessment Method 4 4 [facility] Pulse Rate 94 94 [facility] pital Height 66 66 [facility] pital Blood Pressure 126/81 126/81 [facility] Weight Measurement Method 8 8 [facility] Weight 3680 3680 [facility] pital Temperature Source 7 7 [facility] Temperature 96.7 96.7 [facility] spital Respiratory Effort 1 1 [facility] Respiratory Rate 18 18 [facility] Pulse Assessment Method 4 4 [facility] Pulse Rate 94 94 [facility] pital Height 66 66 [facility] Blood Pressure 126/81 126/81 [facility] ID Date Data Source [id number] 04/19/2021 01:44:00 AM EDT [facility] Name Value Range Interpretation Code Description Data Source(s) WEIGHT 136.6 kilos 136.6 kilos [facility] HEIGHT 170.18 centimeters 170.18 centimeter s [facility] WEIGHT 137.7 kilos 137.7 kilos [facility] HEIGHT 170.18 centimeters 170.18 centimeter s [facility] WEIGHT 137.2 kilos 137.2 kilos [facility] HEIGHT 170.18 centimeters 170.18 centimeter s [facility] WEIGHT 137.2 kilos 137.2 kilos [facility] HEIGHT 152.4 centimeters 152.4 centimeters [facility] WEIGHT 137.2 kilos 137.2 kilos [facility] HEIGHT 170.18 centimeters 170.18 centimeter s [facility] WEIGHT 134.5 kilos 134.5 kilos [facility] HEIGHT 170.18 centimeters 170.18 centimeter s [facility] ID Date Data Source [id number] 04/19/2021 01:44:00 AM EDT [facility] Name Value Range Interpretation Code Description Data Source(s) WEIGHT 136.3 kilos 136.3 kilos [facility] HEIGHT 152.4 centimeters 152.4 centimeters [facility] WEIGHT 136.3 kilos 136.3 kilos [facility] HEIGHT 170.18 centimeters 170.18 centimeter s [facility] WEIGHT 136.8 kilos 136.8 kilos [facility] HEIGHT 170.18 centimeters 170.18 centimeter s [facility] WEIGHT 131.5 kilos 131.5 kilos [facility] HEIGHT 170.18 centimeters 170.18 centimeter s [facility] WEIGHT 128.8 kilos 128.8 kilos [facility] HEIGHT 170.18 centimeters 170.18 centimeter s [facility] WEIGHT 126.8 kilos 126.8 kilos [facility] HEIGHT 170.18 centimeters 170.18 centimeter s [facility] WEIGHT 124 kilos 124 kilos [facility] HEIGHT 170.18 centimeters 170.18 centimeter s [facility] ID Date Data Source [id number] 10/29/2020 09:38:25 PM EDT [facility] Hospital Name Value Range Interpretation Code Description Data Source(s) PREFERRED NAME Romel Urena [facility] TRANSFER FROM [facility] ID Date Data Source [id number] 04/19/2021 01:44:00 AM EDT [facility] Name Value Range Interpretation Code Description Data Source(s) WEIGHT 124 kilos 124 kilos [facility] HEIGHT 167.64 centimeters 167.64 centimeter s [facility] ID Date Data Source [id number] 07/18/2020 09:56:40 PM [facility] Name Value Range Interpretation Code Description Data Source(s) PREFERRED NAME Romel Urena [facility] ID Date Data Source [id number] 04/19/2021 01:43:00 AM EDT [facility] Name Value Range Interpretation Code Description Data Source(s) WEIGHT 122.8 kilos 122.8 kilos [facility] HEIGHT 167.64 centimeters 167.64 centimeter s [facility] WEIGHT 100 kilos 100 kilos [facility] HEIGHT 167.64 centimeters 167.64 centimeter s [facility] ID Date Data Source [id number] 04/19/2021 01:43:00 AM EDT [facility] Name Value Range Interpretation Code Description Data Source(s) WEIGHT 124.2 kilos 124.2 kilos [facility] HEIGHT 167.64 centimeters 167.64 centimeter s [facility] WEIGHT 123.4 kilos 123.4 kilos [facility] HEIGHT 167.64 centimeters 167.64 centimeter s [facility] WEIGHT 123.9 kilos 123.9 kilos [facility] HEIGHT 167.64 centimeters 167.64 centimeter s [facility] WEIGHT 123.9 kilos 123.9 kilos [facility] HEIGHT 152.4 centimeters 152.4 centimeters [facility] WEIGHT 119.6 kilos 119.6 kilos [facility] HEIGHT 167.64 centimeters 167.64 centimeter s [facility] WEIGHT 118.2 kilos 118.2 kilos [facility] HEIGHT 167.64 centimeters 167.64 centimeter s [facility] WEIGHT 112.6 kilos 112.6 kilos [facility] HEIGHT 167.64 centimeters 167.64 centimeter s [facility] WEIGHT 100 kilos 100 kilos [facility] HEIGHT 167.64 centimeters 167.64 centimeter s [facility] ID Date Data Source [id number] 04/19/2021 01:43:00 AM EDT [facility] Name Value Range Interpretation Code Description Data Source(s) WEIGHT 100 kilos 100 kilos [facility] HEIGHT 167.64 centimeters 167.64 centimeter [facility] ID Date Data Source [id number] 04/19/2021 01:43:00 AM EDT [facility] Name Value Range Interpretation Code Description Data Source(s) WEIGHT 110 kilos 110 kilos [facility] HEIGHT 167.64 centimeters 167.64 centimeter [facility] WEIGHT 100 kilos 100 kilos [facility] HEIGHT 167.64 centimeters 167.64 centimeter [facility] ID Date Data Source [id number] 04/19/2021 01:43:00 AM EDT [facility] Name Value Range Interpretation Code Description Data Source(s) WEIGHT 104.4 kilos 104.4 kilos [facility] HEIGHT 152.4 centimeters 152.4 centimeters [facility] WEIGHT 100 kilos 100 kilos [facility] HEIGHT 167.64 centimeters 167.64 centimeter [facility] Patient Treatment Plan of Care Planned Activity Planned Date Details Description Data Source (s) Sertraline 50 MG Oral Tablet 04/07/2021 12:00:00 AM [facility] Prazosin 1 MG Oral Capsule 04/05/2021 10:00:00 PM [facility] Ondansetron 4 MG Disintegrating Oral Tablet 04/05/2021 06:25:36 AM [facility] Magnesium Hydroxide 80 MG/ML Oral Suspension 04/05/2021 06:25:35 AM [facility] Aluminum Hydroxide 40 MG/ML / Magnesium Hydroxide 40 MG/ML / Simethicone 4 MG/ML Oral Suspension 04/05/2021 06:25:[address] [facility] Melatonin 5 MG Oral Tablet 04/05/2021 06:25:23 AM [facility] aripiprazole 10 MG Oral Tablet 03/25/2021 12:00:00 AM [facility] Escitalopram 5 MG Oral Tablet 03/15/2021 12:00:00 AM [facility] Prazosin 2 MG Oral Capsule 03/15/2021 12:00:00 AM [facility] topiramate 25 MG Oral Tablet 02/26/2021 12:00:00 AM [facility] Sertraline 50 MG Oral Tablet 02/26/2021 12:00:00 AM [facility] Loratadine 10 MG Oral Tablet 02/26/2021 12:00:00 AM [facility] Lurasidone Hydrochloride 80 MG Oral Tablet 02/26/2021 12:00:00 AM [facility] topiramate 25 MG Oral Tablet 02/26/2021 12:00:00 AM [facility] Sertraline 50 MG Oral Tablet 02/26/2021 12:00:00 AM [facility] Lurasidone Hydrochloride 80 MG Oral Tablet 02/26/2021 12:00:00 AM [facility] Loratadine 10 MG Oral Tablet 02/26/2021 12:00:00 AM [facility] Propranolol Hydrochloride 10 MG Oral Tablet 02/25/2021 12:00:00 AM [facility] Prazosin 2 MG Oral Capsule 02/25/2021 12:00:00 AM [facility] montelukast 10 MG Oral Tablet 02/25/2021 12:00:00 AM [facility] Trazodone Hydrochloride 50 MG Oral Tablet 02/25/2021 12:00:00 AM [facility] Pravastatin Sodium 20 MG Oral Tablet 02/25/2021 12:00:00 AM [facility] Trazodone Hydrochloride 50 MG Oral Tablet 02/25/2021 12:00:00 AM [facility] Propranolol Hydrochloride 10 MG Oral Tablet 02/25/2021 12:00:00 AM [facility] Prazosin 2 MG Oral Capsule 02/25/2021 12:00:00 AM [facility] Pravastatin Sodium 20 MG Oral Tablet 02/25/2021 12:00:00 AM [facility] montelukast 10 MG Oral Tablet 02/25/2021 12:00:00 AM [facility] chlorproMAZINE (THORAZINE) 50 MG/2ML injection 02/22/2021 05:23:23 PM [facility] diphenhydrAMINE (BENADRYL) 50 MG/ML injection 02/22/2021 05:23:16 P M [facility] Hydroxyzine Hydrochloride 50 MG Oral Tablet 02/21/2021 08:18:25 PM [facility] Magnesium Hydroxide 80 MG/ML Oral Suspension 02/21/2021 08:18:18 PM [facility] 2 ML aripiprazole 200 MG/ML Prefilled Syringe [Abilify ] 06/18/2020 12:00:00 AM [facility] ospital duloxetine 30 MG Delayed Release Oral Capsule 12/28/2019 12:00:00 A M [facility] Sertraline 50 MG Oral Tablet [facility] Propranolol Hydrochloride 10 MG Oral Tablet [facility] Prazosin 1 MG Oral Capsule [facility] Ondansetron 4 MG Oral Tablet [facility] Citalopram 20 MG Oral Tablet [facility]
--- NOTE | 2021-05-17 06:33 | ECGEPIP ---
[facility] - ED Test Date: 2021-05-17 Pat Name: SCOTTY OCAMPO Department: Room: - Gender: Female Parts Classifier: [id number] : 2000 Requested By: THERESA Sánchez Order Number: [id number] Reading MD: Kamille Torres Measurements Intervals [place] Rate: 80 P: 50 VT: 150 QRS: 0 QRSD: 90 T: 41 QT: 352 QTc: 405 Interpretive Statements Normal sinus rhythm Minimal voltage criteria for LVH, may be normal variant ( R in aVL ) Nonspecific ST T wave changes cw05/16/[address] T wave changes Electronically Signed on 05-17-2021 6:33:37 EDT by Kamille Torres
[2021-05-17] MEDS ORDERED: LIDOCAINE 2% 5ML JELLY UROJET TOP ONE (07:45)
[2021-05-17 08:49] LABS: AMPHETAMINES LEVEL URINE NEGATIVE (NEGATIVE); BARBITURATES URINE NEGATIVE (NEGATIVE); BENZODIAZEPINES URINE NEGATIVE (NEGATIVE); CANNABINOIDS URINE NEGATIVE (NEGATIVE); COCAINE METABOLITE URINE NEGATIVE (NEGATIVE); METHADONE URINE NEGATIVE (NEGATIVE); OPIATES URINE NEGATIVE (NEGATIVE); PHENCYCLIDINE URINE NEGATIVE (NEGATIVE)
[2021-05-17 16:33] LABS: RSV AMPLIFICATION NEGATIVE (NEGATIVE)
[2021-05-17] MEDS ORDERED: LORA-674 PO (17:55)
[2021-05-17] MEDS: LORATADINE 10 MG TAB PO SCH (18:30)
[2021-05-17] MEDS ORDERED: MONT10TA10 PO (19:16)
[2021-05-17] MEDS ORDERED: ABIL1INJ2 IM (19:16)
[2021-05-17] MEDS ORDERED: ARIP1TAB6 PO (19:16)
[2021-05-17] MEDS ORDERED: TOPI25TA10 PO (19:16)
[2021-05-17] MEDS ORDERED: HOME MED LIST COMPLETE! XX SCH (19:20)
[2021-05-17] MEDS: ESCITALOPRAM OXALATE 5MG TABLET (LEXAPRO) PO SCH (21:18)
[2021-05-17] MEDS: PRAZOSIN 1 MG CAP PO SCH (21:20)
[2021-05-17] MEDS: PRAVASTATIN 20 MG TAB PO SCH (21:20)
[2021-05-17] MEDS: OLANZapine 5 MG TAB PO SCH (21:20)
[2021-05-17] MEDS: PROPRANOLOL 10 MG TAB PO SCH (21:21)
[2021-05-18] MEDS ORDERED: SERTRALINE HCL 50 MG TAB PO SCH (09:00)
[2021-05-18] MEDS ORDERED: ARIPiprazole 10 MG TAB PO SCH (09:00)
[2021-05-18] MEDS: LORATADINE 10 MG TAB PO SCH (09:12)
[2021-05-18] MEDS: PROPRANOLOL 10 MG TAB PO SCH ×2 (09:14→22:03)
[2021-05-18] MEDS ORDERED: LORazepam 2 MG/ML VIAL IM ONE (14:50)
[2021-05-18] MEDS ORDERED: LORazepam 2 MG/ML VIAL As Ordered ONE (15:55)
[2021-05-18] MEDS ORDERED: LORazepam 2 MG/ML VIAL IM STA (16:00)
[2021-05-18] MEDS: SODIUM CHLORIDE NASAL 0.65% SPRAY BTL (OCEAN) PRN ×2 (17:07→22:58)
[2021-05-18 22:03] VITALS: BP 136/62
[2021-05-18] MEDS: PRAZOSIN 1 MG CAP PO SCH (22:03)
[2021-05-18] MEDS: PRAVASTATIN 20 MG TAB PO SCH (22:03)
[2021-05-18] MEDS: ESCITALOPRAM OXALATE 5MG TABLET (LEXAPRO) PO SCH (22:03)
[2021-05-18] MEDS: OLANZapine 5 MG TAB PO SCH (22:04)
[2021-05-19 09:00] VITALS: BP 133/76
--- NOTE | 2021-05-19 12:15 | MHCRPDOC ---
[facility] Consultation Consultation DATE OF CONSULTATION: 05/19/21 CONSULTATION REQUESTED BY: ED team REASON FOR CONSULTATION: Suicidal ideations HISTORY: Patient returns to the emergency room as self presentation after reportedly drinking toilet turkey cleaner, not confirmed on toxicology, has multiple visits recently making suicidal threats, in context of arguments with others including family. Presents endorsing SI, when understands there is no immediate bed placement denies the symptoms and asked for discharge, endorses is feeling safe and plans to return home to her boyfriend on [facility] in [place]. Reports suicidal statements are made out of anger and that she is just frustrated as usual with her family, denies any suicidal ideation, intent or plan. Denies any homicidal ideation, intent or plan. Denies access to weapons. Per PSA report: "pt, walked to ER early this am. Pt. states she was feeling Suicidal and "I drank about half a soda bottle of toilet turkey cleaner, hoping it would kill me!" Yareli says she is basically feeling Suicidal 01/02 and has had events recently making the thoughts worse and acting on them more. Pt. said recently she lost a cousin who was like a brother to a drug OD "he and i could not go to his so i feel bad for not going, [facility] would not let me go". pt. says she is not been listened to in past and suffers from PTSD and MH issues in general, Causing her to have constant SI and states "my plans to end my life are usually just take toxic Chemicals or lots of Meds, i have thought about strangulation recently, I have cut in past and might if i have a chance now". Pt has a hx of inpatient stays, is unable to be admitted in [facility], and doesn't want to go to [facility], she says they were never helpful in the past. Pt. Denies Drug use Admits to not taking meds as prescribed OD on her prescribed meds many times and does not take them as prescribed. Umm was at [facility] [employer] last week she saw Tamy, and has her next apt in [facility] at [facility] May.20 she will see Grayson Amado at 3 pm. pt. states she has been seeing him for a year now and it is a good connection in therapy. PAST PSYCHIATRIC HISTORY: See previous care summaries, has history of suicide attempts, multiple inpatient admissions PAST MEDICAL HISTORY: See care summary FAMILY HISTORY: Unclear PERSONAL AND SOCIAL HISTORY: The patient was born and raised in [place]. Resides in: [place] Marital Status: S Single Employment: [employer] HISTORY: LEGAL HISTORY: none indicated MENTAL STATUS EXAMINATION: Patient is a 20-year old female, who is no acute distress lying in bed, as per usual irritable and frustrated interviewing Speech is spontaneous, normal rate and normal amount Language skills are fair Thought processes including: Linear logical. Thought content: Denies suicidal ideation, intent or plan. Denies homicidal ideation, intent. On further evaluation. Abstract reasoning, and computation: Fair Description of associations: Normal based on interview Description of abnormal or psychotic thoughts: Denies. Judgment: Fair Insight: Fair Orientation to x4 Recent and remote memory: Intact Attention span and concentration: Fair Language: Khmer Fund of knowledge: Average based on age Mood: "I'm okay" Affect: Somewhat irritable baseline, but calmer than previous presentations, stable, mood congruent DIAGNOSIS: 1. Borderline personality disorder PLAN: 1. Patient does not meet criteria for involuntary admission, as per work-up endorses anger and frustration with family being a trigger for herself presenting, nor endorsing suicidal ideation, intent or plan. Denies any homicidal ideation, intent or plan. No symptoms of psychosis or enoc. Patient alert and oriented and future directed to go to appointment May 20 with outside provider Grayson Labarge at [facility]. Patient needs safety plan arranged including removing access to pill collections and can be discharged, did not want voluntary admission after being made aware that she had to wait or be transferred. Vital Signs Vital Signs Date Time Temp Pulse Resp B/P (MAP) Pulse Ox O2 Delivery O2 Flow Rate FiO2 05/19/21 09:00 98.2 81 16 133/76 (95) 97 Room Air Home Medications Current Medications Current Medications Medications (Trade) Dose Ordered Sig/Brielle Route PRN Reason Start Time Stop Time Status Last Admin Dose Admin Aripiprazole (AbiLIFY) 10 mg DAILY PO 05/18/21 09:00 05/19/21 09:55 DC 05/18/21 09:12 Escitalopram Oxalate (Lexapro) 5 mg QHS PO 05/17/21 21:00 05/19/21 09:55 DC 05/18/21 22:03 Home Med (Home Med List Complete!) ASDIRECTED XX 05/17/21 19:20 05/17/21 19:19 DC Loratadine (Claritin) 10 mg DAILY PO 05/17/21 18:05 05/19/21 09:55 DC 05/18/21 09:12 Lorazepam (Ativan) 2 mg STAT STAT IM 05/18/21 16:00 05/18/21 16:01 DC 05/18/21 16:03 Olanzapine (ZyPREXA) 5 mg QHS PO 05/17/21 21:00 05/19/21 09:55 DC 05/18/21 22:04 Pravastatin Sodium (Pravachol) 20 mg QHS PO 05/17/21 21:00 05/19/21 09:55 DC 05/18/21 22:03 Prazosin HCl (Minipress) 2 mg QHS PO 05/17/21 21:00 05/19/21 09:55 DC 05/18/21 22:03 Propranolol HCl (Inderal) 10 mg BID PO 05/17/21 21:00 05/19/21 09:55 DC 05/18/21 22:03 Sertraline HCl (Zoloft) 50 mg DAILY PO 05/18/21 09:00 05/19/21 09:55 DC 05/18/21 09:12 Sodium Chloride ([place]man Nasal [place]) 2 spray Q2HP PRN NA NASAL DRYNESS 05/18/21 13:50 05/19/21 09:55 DC 05/18/21 22:58 Scheduled Aripiprazole (Aripiprazole) 5 Mg Tablet, 5 MG PO DAILY, (Reported) Aripiprazole (Abilify Maintena) 400 Mg Suser.syr, 400 MG IM QMONTH, (Reported) Escitalopram Oxalate (Lexapro) 5 Mg Tablet, 5 MG PO QPM, (Reported) TAKES AT DINNERTIME Loratadine (Loratadine) 10 Mg Tablet, 10 MG PO DAILY, (Reported) Montelukast Sodium (Montelukast Sodium) 10 Mg Tablet, 10 MG PO DAILY, (Reported) Olanzapine (Zyprexa) 5 Mg Tablet, 5 MG PO QHS, (Reported) Prazosin Hcl (Prazosin HCl) 2 Mg Capsule, 2 MG PO QHS, (Reported) Propranolol HCl (Propranolol HCl) 10 Mg Tablet, 10 MG PO BID, (Reported) Sertraline HCl (Sertraline HCl) 50 Mg Tablet, 50 MG PO DAILY, (Reported) Topiramate (Topiramate) 25 Mg Tablet, 75 MG PO DAILY, (Reported) Allergies Coded Allergies: haloperidol (Verified Adverse Reaction, Intermediate, LOCKJAW, 04/19/21) Has required & received this med many time without EPS noted risperidone (Verified Adverse Reaction, Mild, PSORIASIS, 04/19/21) RUBY DEVI MD May 19, 2021 12:15
== END 2021-05-19 09:00 | disposition home or self-care (01) ==
LOC: M ED 02:26
DX: F43.0 Acute stress reaction (principal); T49.2X2A Poisoning by local astringents and local detergents, intentional self-harm, initial encounter; F60.3 Borderline personality disorder; Z91.51 Personal history of suicidal behavior; Z79.899 Other long term (current) drug therapy
CPT/HCPCS: 36600; 80048; 80076; 80143; 80307; 82077; 82550; 82803; 84443; 85025; 87631; 93005; 93041; 94760; 96361; 96372; 99285; J1200; J1630; J2060

== ENCOUNTER 2021-05-20 00:55 | Emergency (ER) | payer OTHER ==
[~2021-05-20] VITALS: Ht 167.6 cm; Wt 136.3 kg
[~2021-05-20 00:55] MED LIST changes: -CITA10TA5; -CITA10TA5 PO; +CITA10TA7; +CITA10TA7 PO; -HALO5TA PO; +HALO5TAB33 PO; -LATU80TA PO; +LATU80TA2 PO; -MONT10TA10 PO; +MONT10TA97 PO
[2021-05-20] MEDS ORDERED: NS 1,000 ML IV ONE (01:10)
[2021-05-20 02:04] LABS: HEMATOCRIT 36.2 % (36.0-47.0); HEMOGLOBIN 11.9 g/dl (12.0-15.5); MEAN CORPUSCULAR HEMOGLOBIN 29.2 pg (27.0-33.0); MEAN CORPUSCULAR HGB CONC 32.9 g/dl (32.0-36.5); MEAN CORPUSCULAR VOLUME 88.9 fl (80.0-96.0); PLATELET COUNT, AUTOMATED 235 10^3/uL (150-450); RED BLOOD COUNT 4.07 10^6/uL (4.00-5.40); WHITE BLOOD COUNT 7.8 10^3/uL (4.0-10.0)
[2021-05-20 02:24] LABS: AMPHETAMINES LEVEL URINE NEGATIVE (NEGATIVE); BARBITURATES URINE NEGATIVE (NEGATIVE); BENZODIAZEPINES URINE NEGATIVE (NEGATIVE); CANNABINOIDS URINE NEGATIVE (NEGATIVE); COCAINE METABOLITE URINE NEGATIVE (NEGATIVE); METHADONE URINE NEGATIVE (NEGATIVE); OPIATES URINE NEGATIVE (NEGATIVE); PHENCYCLIDINE URINE NEGATIVE (NEGATIVE)
[2021-05-20 02:26] LABS: HCG, SERUM QUALITATIVE NEGATIVE (NEGATIVE)
[2021-05-20 02:41] LABS: ACETAMINOPHEN LEVEL < 2.0 UG/ML (10.0-30.0); ALBUMIN 3.6 GM/DL (3.2-5.2); ALT/SGPT 49 U/L (12-78); BILIRUBIN,DIRECT < 0.1 MG/DL (0.0-0.2); BILIRUBIN,TOTAL 0.2 MG/DL (0.2-1.0); BLOOD UREA NITROGEN 20 MG/DL (7-18); CALCIUM LEVEL 9.3 MG/DL (8.5-10.1); CARBON DIOXIDE LEVEL 23 MEQ/L (21-32); CHLORIDE LEVEL 107 MEQ/L (98-107); CREATININE FOR GFR 0.79 MG/DL (0.55-1.30); ETHYL ALCOHOL (ETHANOL) < 0.003 % (0.000-0.010); GLUCOSE, FASTING 102 MG/DL (70-100); POTASSIUM SERUM 4.1 MEQ/L (3.5-5.1); SALICYLATE LEVEL < 1.7 MG/DL (5.0-30.0); SODIUM LEVEL 140 MEQ/L (136-145); TOTAL PROTEIN 7.2 GM/DL (6.4-8.2)
[2021-05-20] MEDS ORDERED: HOME MED LIST COMPLETE! XX SCH (11:10)
[2021-05-20] MEDS ORDERED: LORazepam 2 MG/ML VIAL IM ONE (15:40)
[2021-05-20] MEDS ORDERED: diphenhydrAMINE 50MG/ML VIAL (J1200) IM ONE (15:40)
[2021-05-20 20:49] LABS: RSV AMPLIFICATION NEGATIVE (NEGATIVE)
[2021-05-21] MEDS ORDERED: ACETAMINOPHEN TAB 650MG DOSE (2X325MG) PO ONE (08:45)
[2021-05-21] MEDS ORDERED: TOPIRAMATE (TopAMAX) 25 MG TAB PO SCH (09:00)
[2021-05-21] MEDS ORDERED: SERTRALINE HCL 50 MG TAB PO SCH (09:00)
[2021-05-21] MEDS ORDERED: PROPRANOLOL 10 MG TAB PO SCH ×2 (09:00→09:20)
[2021-05-21] MEDS: LORATADINE 10 MG TAB PO SCH ×2 (10:00→10:06)
[2021-05-21] MEDS: ESCITALOPRAM OXALATE 5MG TABLET (LEXAPRO) PO SCH ×2 (10:00→10:06)
[2021-05-21] MEDS: MONTELUKAST 10 MG TAB PO SCH ×2 (10:00→10:06)
[2021-05-21 14:05] VITALS: BP 148/91
[2021-05-21] MEDS ORDERED: OLANZapine 5 MG TAB PO SCH (21:00)
[2021-05-21] MEDS ORDERED: PRAZOSIN 1 MG CAP PO SCH (21:00)
[2021-05-22] MEDS ORDERED: TOPIRAMATE (TopAMAX) 25 MG TAB PO SCH (09:00)
== END 2021-05-21 14:14 ==
LOC: M ED 00:55
DX: R45.851 Suicidal ideations (principal); F31.9 Bipolar disorder, unspecified; F60.3 Borderline personality disorder; Z88.8 Allergy status to other drugs, medicaments and biological substances

== ENCOUNTER 2021-05-23 11:41 | Emergency (ER) | payer OTHER ==
[~2021-05-23] VITALS: Ht 167.6 cm; Wt 104.5 kg
[~2021-05-23 11:41] MED LIST changes: +CITA10TA5; +CITA10TA5 PO; -CITA10TA7; -CITA10TA7 PO; +HALO5TA PO; -HALO5TAB33 PO; +LATU80TA PO; -LATU80TA2 PO; +MONT10TA10 PO; -MONT10TA97 PO
[2021-05-23 11:56] VITALS: BP 130/78
[2021-05-24] MEDS ORDERED: LEXA1TAB PO (11:07)
== END 2021-05-23 20:17 | disposition home or self-care (01) ==
LOC: M ED 11:41
DX: F43.0 Acute stress reaction (principal); F31.9 Bipolar disorder, unspecified; F90.9 Attention-deficit hyperactivity disorder, unspecified type; F43.10 Post-traumatic stress disorder, unspecified; F60.3 Borderline personality disorder; Z88.8 Allergy status to other drugs, medicaments and biological substances; Z79.899 Other long term (current) drug therapy

== ENCOUNTER 2021-05-24 04:06 | Emergency (ER) | payer OTHER ==
[~2021-05-24] VITALS: Ht 167.6 cm; Wt 136.2 kg
--- OUTSIDE RECORDS SUMMARY | 2021-05-24 04:23 | CCD ---
Author Author [facility] Address Unknown Phone Unavailable Support Name Relationship Address Phone TULIO HUTCHISON Next Of Kin [address] [facility] [address] [place] [address] LIVING, TRANSITIONAL Next Of Kin [address] [place] [address] Unavailable N, PER PT ONE Next Of Kin [address] [facility] [address] [address] WILMAR DUENAS Next Of Kin [address] [place] [address] NO ONE, PATIENT PER Next Of Kin [address] [place] [address] JOAN WOODWARD Next Of Kin Unknown Unavailable Yamileth Aleman Next Of Kin [address] [place] [address] CONTACT, NO Next Of Kin Unknown NO, CONTACT Next Of Kin Unknown U Next Of Kin Unknown Unavailable TLS, RESIDENTS [facility] Next Of Kin [address] [place] [address] Camelia Martinez Next Of Kin [address] [place] [address] UN Next Of Kin Unknown Unavailable none to, list Next Of Kin [address] [facility] [address] [place] [address] ALIZA HATCH Next Of Kin [address] [place] [address] KAREN GODFREY Next Of Kin [address] [place] [address] TL, S Next Of Kin [address] [place] [address] PEPPER TORIBIO Next Of Kin Unknown UE Next Of Kin Unknown Unavailable CHOIROLAPEPPER Next Of Kin [address] [place] [address] S Next Of Kin Unknown Unavailable Mainor HATCH Next Of Kin [address] [place] [address] ST Next Of Kin Unknown Unavailable Jorge HATCH Next Of Kin [address] [place] [address] Care Team Providers Care Coiler Name Role Phone LaBarge, Zeyad Unavailable SYSTEM IN, NOT IN PROVIDER Unavailable Unavailable William Carreon Unavailable KYLIE العلي MD [...] Unavailable Unavailable WADE KELLEY MD Unavailable Unavailable ALFREDMartita BEAL MD Unavailable Unavailable ALFRED, Martita YBARRA MD Unavailable Unavailable ALFRED, Martita YBARRA MD Unavailable Unavailable ALFRED, Martita YBARRA MD Unavailable Unavailable ALFRED, U AMADA SMITH Unavailable Unavailable ALFRED, U AMADA SMITH Unavailable Unavailable ALFRED, U AMADA SMITH Unavailable Unavailable ALFRED, U AMADA SMITH Unavailable Unavailable Dawn, R Leeroy PA Unavailable Dawn, R Leeroy PA Unavailable Dawn, R Leeroy PA Unavailable Dawn, R Leeroy PA Unavailable Dawn, R Leeroy PA Unavailable Dawn, R Leeroy PA Unavailable Dawn, R Leeroy PA Unavailable Dawn, R Leeroy PA Unavailable Dawn, R Leeroy PA Unavailable Dawn, R Leeroy PA Unavailable Dawn, R Leeroy PA Unavailable BOGDAN MACIAS MD Unavailable Unavailable COLLEENBOGDAN Meeks MD Unavailable Unavailable COLLEENBOGDAN Meeks MD Unavailable Unavailable COLLEENBOGDAN Meeks MD Unavailable Unavailable COLLEENBOGDAN Meeks MD Unavailable Unavailable Feuga, Santiago Unavailable Feuga, Satniago Unavailable Feuga, Santiago Unavailable Feuga, Santiago Unavailable Sohail GROVER MD Unavailable Unavailable ANSHUL STRAUSS MD Unavailable Unavailable ANSHUL STRAUSS MD Unavailable Unavailable ANSHUL STRAUSS MD Unavailable Unavailable ANSHUL STRAUSS MD Unavailable Unavailable ANSHUL STRAUSS MD Unavailable Unavailable FEDRAULCZ, ANSHUL MD Unavailable Unavailable NILOOEDUARDO CARTER MD Unavailable Unavailable EDUARDO JERRY MD Unavailable Unavailable NILOOEDUARDO CARTER MD Unavailable Unavailable NILOOEDUARDO CARTER MD Unavailable Unavailable NILEDUARDO PANDYA MD Unavailable [...] Unavailable NIZAR R AYAN SMITH Unavailable Unavailable ALBINZARamiro Rubio MD Unavailable Unavailable NIZARamiro Rubio MD Unavailable Unavailable ALBINZARamiro Rubio MD Unavailable Unavailable ALBINZARamiro Rubio MD Unavailable Unavailable Ramiro DIAMOND MD Unavailable Unavailable ALBINZARamiro Rubio MD Unavailable Unavailable Ramiro DIAMOND MD Unavailable Unavailable Ramiro DIAMOND MD Unavailable Unavailable Sohail GROVER MD Unavailable Unavailable Sohail GROVER MD Unavailable Unavailable Divya Orozco LENS MATCHER Unavailable Unavailable Cortney, Vish LENS MATCHER Unavailable Cortney, Vish LENS MATCHER Unavailable Cortney, Vish LENS MATCHER Unavailable Mariam HICKS MD Unavailable Unavailable Mariam [...] Leeroy Unavailable WILLIAM CARREON MD Unavailable Unavailable COLBY MORMON Unavailable Unavailable BOWMAN, MORMON MD Unavailable Unavailable BOWMAN, MORMON MD Unavailable Unavailable BOWMAN, MORMON MD Unavailable Unavailable BOWMAN, MORMON MD Unavailable Unavailable BOWMAN, MORMON MD Unavailable Unavailable BOWMAN, MORMON MD Unavailable Unavailable BOWMAN, MORMON MD Unavailable Unavailable Pedro Estrada Unavailable Pedro Estrada Unavailable Janette Martinez MD Unavailable Unavailable Nicole [...] Rudy K Marky MD Unavailable Unavailable Nicole Grantibhav MD Unavailable Unavailable Nicole Kent PMH-LENS MATCHER Unavailable Unavailable Nicole Kent PMH-LENS MATCHER Unavailable Unavailable Nicole Kent Tammie PMH-LENS MATCHER Unavailable Unavailable Nicole Kent PMH-LENS MATCHER Unavailable Unavailable Nicole Kent Tammie PMH-LENS MATCHER Unavailable Unavailable [employer], K Tammie PMH-LENS MATCHER Unavailable Unavailable Donte, Nicole Tammie PMH-LENS MATCHER Unavailable Unavailable Nicole Kent Tammie PMH-LENS MATCHER Unavailable Unavailable Maria De Jesus RIBEIRO Unavailable [...] Gonzalo COLBERT . Unavailable Unavailable Martin Negron LENS MATCHER Unavailable Unavailable Sohail Muñoz MD Unavailable Unavailable [...] Unavailable Megna, L Deejay PA-C Unavailable Unavailable [place], F Zaki PA Unavailable Unavailable [place], F Zaki PA Unavailable Unavailable [place], F Zaki PA Unavailable Unavailable [place], F Zaki PA Unavailable Unavailable [place], F Zaki PA Unavailable Unavailable [place], F Zaki PA Unavailable Unavailable [place], F Zaki PA Unavailable Unavailable Macario, F Zaki PA Unavailable Unavailable [place], F Zaki PA Unavailable Unavailable [place], F Zaki PA Unavailable Unavailable ZEGIL, D THERESA BAND MASTER Unavailable Unavailable ZEGIL, D THERESA BAND MASTER Unavailable Unavailable ZEGIL, D THERESA BAND MASTER Unavailable Unavailable AL-Silvio, Ramón MD Unavailable Unavailable [...] is protected by Article 27-F of the [facility] Public Health law. If you continue you may have access to information: Regarding HIV / AIDS; Provided by facilities licensed or operated by the [facility] Office of Mental Health; or Provided by the [facility] Office for People With Developmental Disabilities. If such information is present, then the following [facility] mandated warning applies: This information has [...] law may result in a fine or mcc sentence or both. A general authorization for the release of medical or other information is NOT sufficient authorization for further disc losure. Allergies and Adverse Reactions Type Description Substance Reaction Status Data Source(s ) Drug allergy Drug allergy risperidone Unknown Reaction [facility] Drug allergy Drug allergy haloperidol (From Haldol) Unknown Reaction [facility] Propensity to adverse reactions to substance Risperdal Risperidone 1 MG Oral Tablet [Risperdal] Active [facility] Drug allergy risperidone ris[facility]idone ADDITIONAL [facility]IF[facility] Drug allergy haloperidol haloperidol ADDITIONAL UNSPECIFIED [facility] SEASONAL ALLERGIES SEASONAL ALLERGIES [facility] ([facility]) No Allergies No Allergies [facility] ([facility]) No allergies to food No allergies to food [facility] ([facility]) NKDA NKDA [facility] Drug allergy haloperidol haloperidol [facility] Family History Family Member Name Family Member Gender Family Member Status Date o f Status Description Data Source(s) Unknown Male Condition Family Member ADD / ADHD S [facility] Encounters Encounter Providers Location Date Indications Data Source(s ) Inpatient Attender: AMADA SIMON MD Attender: DYLAN RIBEIROAttender: BROOKLYN ONEILL MDAttender: ZEESHAN GROVER MDAdmitter: BROOKLYN ONELIL MD ER-3RD 05/13/2021 11:10:00 PM EDT - 05/15/2021 11:10:00 AM EDT [facility] Patient discharged. [facility]billable [facility] 05/12/2021 12:00:00 AM EDT [facility] Inpatient Attender: BROOKLYN ONEILL MDAttender: ZEESHAN GROVER MDAdmitter: BROOKLYN ONEILL MD ER-3RD 05/06/2021 02:17:00 PM EDT - 05/08/2021 04:22:00 PM EDT [facility] Patient discharged. Emergency Attender: THERESA BARAHONA [facility] ED-ED 04/12 07:56:00 PM EDT - 05/05/2021 11:21:00 PM EDT suicidal ideation [facility] suicidal ideation Patient discharged. Inpatient Attender: BOGDAN MACIAS MDAtten víctor: DYLAN RIBEIROAttender: BROOKLYN ONEILL MDAttender: KYLIE العلي MDAdmitter: BROOKLYN ONEILL MD ER-3RD 05/01/2021 04:51:00 PM EDT - 05/05/2021 11:59:00 AM EDT [facility] Patient discharged. Emergency Attender: Zaki OWENS ED-ED 01:54:00 AM EDT - 05/01/2021 09:45:00 AM EDT PSYCHIATRIC [facility] PSYCHIATRIC Patient discharged. Emergency Attender: Zaki OWENS ED-ED 11:28:00 PM EDT - 05/01/2021 01:25:00 AM EDT DEPRESSION [facility] DEPRESSION Patient discharged. Emergency Attender: Angelica Martinez MDAttender: Angelica Martinez MD ED-ED 04/30/2021 07:03:00 PM EDT - 04/30/2021 10:30:00 PM EDT DEPRESSION [facility] DEPRESSION Patient discharged. Inpatient Attender: BOGDAN MACIAS MDAttjef víctor: BROOKLYN ONEILL MDAttender: Ramón Levy MDAdmitter: BROOKLYN ONEILL MD ER-3RD 04/27/20 04:51:00 AM EDT - 04/30/2021 02:30:00 PM EDT [facility] Patient discharged. Inpatient Attender: BROOKLYN ONEILL MDAttender: Ramón Levy MDAdmitter: BROOKLYN ONEILL MD ER-3RD 04/26/2021 02:30:00 AM EDT - 04/26/2021 03:15:00 PM EDT [facility] Patient discharged. Emergency Attender: LAUREEN LUIS ES1-CP2 021 01:05:00 PM EDT - 04/24/2021 04:29:00 PM EDT [facility] Patient discharged. Emergency Attender: Zaki OWENS ED-ED 08:53:00 PM EDT - 04/24/2021 11:08:00 AM EDT SUICIDAL THOUGHTS,ANXIETY [facility] SUICIDAL THOUGHTS,ANXIETY Patient discharged. Emergency Attender: Ramón Levy MD ER-ER 1 10:29:00 PM EDT - 04/21/2021 03:43:00 PM EDT [facility] Patient discharged. Emergency Attender: ZEESHAN GROVER MD ER-ER 03/2021 01:17:00 AM EDT - 04/19/2021 02:55:00 PM EDT [facility] Patient discharged. Emergency Attender: KENRICK ZHOU PAAttender: Zaki OWENS ED-ED 04/17/2021 01:21:00 AM EDT - 04/17/2021 01:48:00 PM EDT CONSUMED CLEANING AGENT [facility] CONSUMED CLEANING AGENT Patient discharged. [facility]-billable [facility] 04/14/2021 12:00:00 AM EDT [facility]) Emergency Attender: Nils Argueta MD ER-ER 2020 08:28:00 PM EDT - 04/14/2021 04:43:00 PM EDT [facility] Patient discharged. Emergency Attender: THERESA BARAHONA [facility] ED-ED 08/2020 03:11:00 AM EDT - 04/13/2021 06:45:00 PM EDT THINKING OF SELF HARM [facility] THINKING OF SELF HARM Patient discharged. Inpatient Attender: BOGDAN Hassan víctor: ZEESHAN GROVER MDAdmitter: BOGDAN MACIAS MD ER-3RD 04/09/2021 12:50:00 PM EDT - 04/11/2021 10:46:00 AM EDT [facility] Patient discharged. Inpatient Attender: Deejay Pearson PA-cage tender: JOSE HICKS MDAttender: Leeroy NinaoAttender: LEEROY COLBERT .Admitter: JSOE HICKS MDReferrer: JOSE HICKS MD [id number] 04/05/2021 12:00:00 AM EDT - 04/07/2021 12:21:00 PM EDT [facility] suicidal Patient discharged. Emergency Attender: LAUREEN LUIS ES1-CP2 021 11:17:00 PM EDT - 04/04/2021 01:56:00 PM EDT [facility] Patient discharged. Inpatient Attender: BOGDAN Hassan víctor: BROOKLYN ONEILL MDAttender: Nils Argueta MDAdmitter: BROOKLYN ONEILL MD ER-3RD 04/01/2021 0 6:08:00 PM EDT - 04/03/2021 10:22:00 AM EDT [facility] Patient discharged. Emergency Attender: KENRICK ZHOU PAAttender: Zaki OWENS ED-ED 03/27/2021 10:08:00 PM EDT - 03/30/2021 06:15:00 AM EDT SUICIDAL THOUGHTS,ANXIETY [facility] SUICIDAL THOUGHTS,ANXIETY Patient discharged. Emergency Attender: Leeroy RUIZttender: Leeroy OWENS ED-ED 03/25/2021 08:09:00 PM EDT - 03/25/2021 11:25:00 PM EDT MENTAL HEALTH ISSUES [facility] MENTAL HEALTH ISSUES Patient discharged. Inpatient Attender: Velasquez Lemos er: VELASQUEZ ESTRADAAttender: TARAH BOWMAN MDAdmitter: TARAH BOWMAN MD [id number] 03/21/2021 02:54:00 AM EDT - 03/24/2021 12:21:00 PM EDT [facility] Patient discharged. Psychiatric Diagnostic Evaluation (Non-Medical) Attender: Rosa [facility] 03/20/2021 01:00:00 AM EDT - 03/20/2021 01:00:00 AM EDT [facility] ([facility]) Emergency Attender: THERESA FAUSTINJorge [facility] ED-ED 03/2021 12:32:00 AM EDT - 03/20/2021 01:00:00 AM EDT MENTAL HEALTH ISSUES [facility] MENTAL HEALTH ISSUES Patient discharged. Attender: Zeyad Kovacsremi 03/20/2021 12:00:00 AM EDT [facility] ([facility]) Outpatient Attender: Darren Negron NP 03/17/2021 09:0 7:00 PM EDT Amb Documentation [facility] Documentation Outpatient Attender: Darren Negron NPAdm itter: Divya Orozco NPConsultant: Divya Orozco NP 03/16/2021 09:50:00 PM EDT [facility] Inpatient Attender: Divya Orozco NPAdmitter: Divya gonzales LENS MATCHER 03/16/2021 09:50:00 PM EDT - 03/19/2021 11:43:00 AM EDT [facility] Patient discharged. Outpatient Attender: Vish Barr NPAd mitter: Divya Orozco NPConsultant: Divya Orozco NP 03/16/2021 09:50:00 PM EDT [facility] Outpatient Attender: Divya Orozco NPA dmitter: Divya Orozco NPConsultant: Divya Orozco NP 03/16/2021 09:50:00 PM EDT [facility] Emergency Attender: Anoop Bowman ER-ER 03/16/20 05:07:00 AM EDT - 03/16/2021 07:30:00 PM EDT [facility] Patient discharged. Emergency Attender: Leeroy OWENS ED-ED 021 11:49:00 PM EDT - 03/16/2021 01:34:00 AM EDT MEDICATION SWITCH FOR MENTAL HEALTH [facility] MEDICATION SWITCH FOR MENTAL HEALTH Patient discharged. IP PSYCH Attender: WADE KELLEY MD Attender: YOLANDE Duenasender: Marky Grant MDAdmitter: YOLANDE LIEBERMAN MDConsultant: William CoeirConsultant: WILLIAM CARREON MD 2E-2A 03/13/2021 11:02:00 AM EDT - 03/15/2021 01:22:00 PM EDT [facility] Patient discharged. [facility]-billable [facility] 03/12/2021 12:00:00 AM EDT [facility]) Emergency Attender: Leeroy Sykesender: KENRICK OWENS ED-ED 03/05/2021 06:28:00 PM EDT - 03/06/2021 01:47:00 PM EDT MENTAL HEALTH ISSUES [facility] MENTAL HEALTH ISSUES Patient discharged. Emergency Attender: Ramirez Muñoz MD ED-ED 03/03/20 12:40:00 AM EDT - 03/03/2021 09:59:00 AM EDT [facility] MENTAL HEALTH Patient discharged. Emergency Attender: Nils Argueta MD ER-ER 2020 02:30:00 AM EDT - 03/02/2021 11:27:00 AM EDT [facility] Patient discharged. Emergency Attender: Nils Argueta MD ER-ER 2020 09:08:00 PM EDT - 03/01/2021 12:39:00 PM EDT [facility] Patient discharged. Outpatient [address] [id number] Team 02/27/2021 02:45:00 PM EDT [facility] ([facility]) Patient admitted. Inpatient Attender: AYAN Clifton nder: Velasquez EstradaAttender: VELASQUEZ ESTRADAAdmitter: AYAN DIAMOND MDReferrer: PROVIDER SYSTEM IN [facility] 02/21/2021 12:14:00 PM EDT - 02/25/2021 11:39:00 AM EDT [facility] Patient discharged. Emergency Attender: Ramón Levy MD ER-ER 0 02/20/2021 10:45:00 PM EDT - 02/21/2021 11:44:00 PM EDT [facility] Patient discharged. Emergency Attender: Ramón Levy MD ER-ER 0 02/19/2021 02:28:00 AM EDT - 02/19/2021 10:15:00 AM EDT [facility] Patient discharged. Emergency Attender: Anoop Bowman ER-ER 02/18/20 03:10:00 AM EDT - 02/17/2021 01:54:00 PM EDT [facility] Patient discharged. Emergency Attender: Santiago Stewartender: Anoop Hayward R-ER 02/15/2021 08:00:00 PM EDT - 02/16/2021 01:02:00 PM EDT [facility] ospital Patient discharged. Emergency Attender: KENRICK OWENS ED-ED 02/14 09:21:00 PM EDT - 02/14/2021 11:01:00 PM EDT VOMITING,DIARRHEA [facility] VOMITING,DIARRHEA Patient discharged. Inpatient Attender: DYLAN Michelle er: BROOKLYN ONEILL MDAttender: AMADA SIMON MDAttender: KYLIE العلي MDAdmitter: AMADA SIMON MD ER-3RD 01/03/2021 11:03:00 AM EDT - 02/13/2021 11:40:00 AM EDT [facility] Patient discharged. Outpatient Attender: Tammie Kent [facility] 11/13/2020 09:30:00 AM EDT - 11/13/2020 09:30:00 AM EDT [facility] ([facility]) Attender: Tammie [facility]ANS-HILDA 11/13/2020 12: 00:00 AM EDT [facility] ([facility]) Inpatient Attender: BROOKLYN ONEILL MDAttender: BOGDAN MACIAS MDAttender: KYLIE العلي MDAdmitter: BOGDAN MACIAS MD ER-3RD 10/31/2020 0 8:49:00 AM EDT - 01/01/2021 01:05:00 PM EDT [facility] Patient discharged. Outpatient [id number] 10/29/2020 09:35:00 PM EDT [facility] Psych Inpatient Attender: ZEESHAN GROVER MD Attender: BROOKLYN ONEILL MDAttender: ANSHUL STRAUSS MDAdmitter: BROOKLYN ONEILL MD ER-3RD 10:58:00 AM EDT - 10/29/2020 12:50:00 PM EDT [facility] Patient discharged. Extended Individual Psychotherapy - 45 [facility] 08/27/2020 11:00:00 AM EST - 08/27/2020 11:00:00 AM EST [facility] ([facility]) Attender: [facility] 08/27/2020 12:00:00 AM EST [facility] ([facility]) Psychiatric Diagnostic Evaluation (Non-Medical) Attender: Rosa larios [facility] 08/23/2020 10:00:00 AM EST - 08/23/2020 10:00:00 AM EST [facility] ([facility]) Attender: [facility] 08/23/2020 12:00:00 AM EST [facility] ([facility]) Outpatient Referrer: FORTUNATO BUTCHER DO 07/11/2020 02 :52:00 PM EST suicide attempt, borderline personality disorder, depression [facility] suicide attempt, borderline personality disorder, depression Extended Individual Psychotherapy - 45 min Attender: Jessica Sotomayor [facility] 06/24/2020 11:00:00 AM EST - 06/24/2020 11:00:00 AM EST [facility] ([facility]) Attender: Fariba Sotomayor 06/24/2020 12:00:00 AM EST [facility] ([facility]) Inpatient Attender: FILI CANELA MDAt tender: Nils Argueta MDAttender: NILS ARGUETA MDAdmitter: FILI CANELA MD ER-3RD 06/15/2020 04:05: 00 AM EST - 06/17/2020 01:23:00 PM [facility] Patient discharged. Inpatient Attender: BOGDAN MACIAS MDAtten víctor: BROOKLYN ONEILL MDAttender: KYLIE العلي MDAdmitter: BROOKLYN ONEILL MD ER-3RD 12/2019 09:22:00 PM EDT - 05/17/2020 08:58:00 AM [facility] Patient discharged. Inpatient Attender: EDUARDO Salazar MDAttender: BOGDAN MACIAS MDAttender: AMADA SIMON MDAdmitter: AMADA SIMON MD ER-3RD 020 10:06:00 PM EDT - 12/13/2019 10:30:00 AM EDT [facility] Patient discharged. Inpatient Attender: BOGDAN MACIAS MDAtten víctor: FILI CANELA MDAttender: Ramón Anguiano MDAdmitter: BOGDAN MACIAS MD ER-3RD 11/02/2019 10:24:00 AM EDT - 11/08/2019 12:07:00 PM EDT [facility] Patient discharged. Inpatient Attender: BOGDAN MACIAS MDAtten víctor: BROOKLYN ONEILL MDAttender: AMADA ISMON MDAttender: ANSHUL STRAUSS MDAdmitter: AMADA SIMON MD ER-3RD 08/04/2019 06:28:00 PM EST - 08/11/2019 11:25:00 AM [facility] Patient discharged. Emergency Attender: ANSHUL STRAUSS MD ER-ER 1 07/13/2017 06:59:00 PM EDT - 05/18/2018 06:04:00 PM [facility] Emergency Attender: EDUARDO JERRY MD ER-ER 04/12/2018 05:21:00 PM EDT - 04/16/2018 06:48:00 PM EDT [facility] Immunizations Vaccine Date Status Description Data Source(s) COVID-19 VACCINE Sophia 11/12/2020 12:00:00 AM EDT completed [facility] Vaccine Series Complete: YESThis Data wa s Submitted to [facility] Via [employer]. Medications Medication Brand Name Start Date Product Form Dose Route Admi nistrative Instructions Pharmacy Instructions Status Indications Reaction Description Data Source(s) Sertraline 50 MG Oral Tablet sertraline (ZOLOFT) table t 50 mg sertraline (ZOLOFT) tablet 50 mg 04/07/2021 10:45:00 AM EDT 50 mg Oral active 50 mg, Oral, Daily Standard, First dose on 04/07/21 at 1045, For 30 days [facility] Medication administered onsite aripiprazole 5 MG Oral Tablet ARIPiprazole (ABILIFY) t ablet 10 mg ARIPiprazole (ABILIFY) tablet 10 mg 04/07/2021 10:45:00 AM EDT 10 mg Oral active 10 mg, Oral, Daily Standard, First dose on 04/07/21 at 1045, For 30 days [facility] Medication administered onsite Sertraline 50 MG Oral Tablet Sertraline HCl 50 MG Oral Tablet (ZOLOFT) Sertraline HCl 50 MG Oral Tablet (ZOLOFT) 04/07/2021 12:00:00 AM EDT active Take 50 mg for 2 day s, then increase to 100 mg on 04/10, and increase to 150 mg on 04/13. [facility] olanzapine 5 MG/ML Injectable Solution OLANZapine (ZYP REXA) injection 10 mg OLANZapine (ZYPREXA) injection 10 mg 04/06/2021 10:45:00 PM EDT 10 mg Intramuscular completed 10 mg, Intr amuscular, Once, On 04/06/21 at 2245, For 1 dose
Reconstitute 10 mg vial with 2.1 mL SWFI; resulting solution is ~5 mg/mL; Use within 1 hour following reconstitution.
[facility] Medication administered onsite Prazosin 1 MG Oral Capsule prazosin (MINIPRESS) capsul e 1 mg prazosin (MINIPRESS) capsule 1 mg 04/05/2021 10:00:00 PM EDT 1 mg Oral active 1 mg, Oral, Nightly, First dose on 04/05/21 at 2200, For 30 days
Check vital signs before administering
[facility] Medication administered onsite olanzapine 10 MG Oral Tablet OLANZapine (ZYPREXA) tabl et 10 mg OLANZapine (ZYPREXA) tablet 10 mg 04/05/2021 07:40:57 PM EDT 10 mg Oral active 10 mg, Oral, Every 2 hours PRN, Agitation, MDD 20 mg, Starting on 04/05/21 at 1940, For 30 days [facility] Medication administered onsite Ibuprofen 400 MG Oral Tablet ibuprofen (MOTRIN) tablet 400 mg ibuprofen (MOTRIN) tablet 400 mg 04/05/2021 07:34:02 PM EDT 400 mg Oral act shea 400 mg, Oral, Every 6 hours PRN, Moderate Pain (Pain Scale Score 4-6), Headaches, Starting on 04/05/21 at 1934, For 30 days
Take with food.
[facility] Medication administered onsite multivitamin tablet 1 tablet 2464-4156-56 04/05/2021 08:00:00 AM EDT 1 {tbl} Oral active 1 tablet, Oral , Daily Standard, First dose on 04/05/21 at 0800, For 30 days [facility] Medication administered onsite Nicotine 2 MG Oral Lozenge nicotine (NICORETTE) lozeng e 2 mg nicotine (NICORETTE) lozenge 2 mg 04/05/2021 06:25:36 AM EDT 2 mg Mouth/Th roat active 2 mg, Mouth/Throat, Every 2 hours PRN, Smoking cessation, Starting on 04/05/21 at 0625, For 30 days
Should not be chewed or swallowed; allow to dissolve slowly (~20-30 minutes)
[facility] Medication administered onsite Ondansetron 4 MG Disintegrating Oral Tab let ondansetron (ZOFRAN-ODT) disintegrating tablet 4 mg ondansetron (ZOFRAN-ODT) disintegrating tablet 4 mg 04/05/2021 06:25:36 AM EDT 4 mg Oral active 4 mg, Oral, Every 6 hours PRN, Nausea, Starting on 04/05/21 at 0625, For 30 days
Dissolve on tongue.
[facility] Medication administered onsite Magnesium Hydroxide 80 MG/ML [...] creatinine > 2 notify provider before administering.
[facility] Medication administered onsite Acetaminophen 325 MG Oral [...] mg from all sources in 24 hrs.
[facility] Medication administered onsite Hydroxyzine Hydrochloride 50 MG Oral Tablet hydrOXYzin e (ATARAX) tablet 50 mg hydrOXYzine (ATARAX) tablet 50 mg 04/05/2021 06:25:35 AM EDT 50 mg Oral active 50 mg, Oral, Every 6 hours PRN, Anxiety, Sleep, Starting on 04/05/21 at 0625, For 30 days [facility] Medication administered onsite Aluminum Hydroxide 40 MG/ML [...] at 0625, For 30 days
MDD 4
[facility] Medication administered onsite Melatonin 5 MG Oral Tablet melatonin tablet 5 mg melatonin t ablet 5 mg 04/05/2021 06:25:23 AM EDT 5 mg Oral active 5 mg, Oral, Nightly PRN, Sleep, Starting on 04/05/21 at 0625, For 30 days [facility] Medication administered onsite aripiprazole 10 MG Oral Tablet ARIPiprazole 10 MG Oral Tablet (ABILIFY) ARIPiprazole 10 MG Oral Tablet (ABILIFY) 03/25/2021 12:00:00 AM EDT 10 mg Oral active Take 1 tablet by mary kay [facility] Escitalopram 5 MG Oral Tablet escitalopram oxalate (LE XAPRO) 5 mg tablet escitalopram oxalate (LEXAPRO) 5 mg tablet 03/15/2021 12:00:00 AM EDT 5 mg oral active anxiety with depression T carmela 1 tablet (5 mg total) by mouth 1 (one) time each day with dinner. [facility] anxiety with depression Prazosin 2 MG Oral Capsule prazosin (MINIPRESS) 2 mg c apsule prazosin (MINIPRESS) 2 mg capsule 03/15/2021 12:00:00 AM EDT 2 mg oral active post traumatic stress disorder Take 1 capsule (2 mg total) by mouth 1 (one) time each day at night. [facility] post traumatic stress disorder Lurasidone Hydrochloride 80 MG Oral Tabl et Lurasidone HCl 80 MG Oral Tablet (LATUDA) Lurasidone HCl 80 MG Oral Tablet (LATUDA) 02/26/2021 12:00:00 AM EDT 80 mg Oral active Take 1 tablet by mouth d [facility] Loratadine 10 MG Oral Tablet Loratadine [...] aborted Take 1 tablet by mouth d [facility] topiramate 25 MG Oral Tablet Topiramate 25 MG Oral Tab let (TOPAMAX) Topiramate 25 MG Oral Tablet (TOPAMAX) 02/26/2021 12:00:00 AM EDT 75 mg Oral active Take 3 tablets by mouth daily [facility] Sertraline 50 MG Oral Tablet Sertraline HCl 50 MG Oral Tablet (ZOLOFT) Sertraline HCl 50 MG Oral Tablet (ZOLOFT) 02/26/2021 12:00:00 AM EDT 150 mg Oral aborted Take 3 tablets by mo uth daily [facility] Loratadine 10 MG Oral Tablet Loratadine 10 MG Oral Tab let (CLARITIN) Loratadine 10 MG Oral Tablet (CLARITIN) 02/26/2021 12:00:00 AM EDT 10 mg Oral aborted Take 1 tablet by mouth daily [facility] topiramate 25 MG Oral Tablet Topiramate 25 MG Oral Tab let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 04/05/2021 01:30:00 AM [facility] COVID-19 PCR <td>COVID-19 PCR</td><td>Rou talat</td><td>04/05/2021 1:30 AM EDT</td><td></td><td> </td> 04/05/2021 01:30:00 AM [facility] GONADOTROPIN CHORIONIC QUANTITATIVE <td>BETA HCG, QUANT</td><td>Routine</td><td>04/05/2021 1:30 AM EDT</td><td></td><td> </td> 04/05/2021 01:30:00 AM [facility] ACETAMINOPHEN, RANDOM <td>ACETAMINOPHEN, RANDOM</t d><td>STAT</td><td>04/05/2021 1:30 AM EDT</td><td></td><td> </td> 04/05/2021 01:30:00 AM [facility] ETHYL ALCOHOL LEVEL <td>ETHYL ALCOHOL LEVEL</td> <td>STAT</td><td>04/05/2021 1:30 AM EDT</td><td></td><td> </td> 04/05/2021 01:30:00 AM [facility] PROTHROMBIN TIME <td>PROTIME INR</td><td>STAT </td><td>04/05/2021 1:30 AM EDT</td><td></td><td> </td> 04/05/2021 01:30:00 AM [facility] BLOOD COUNT COMPLETE AUTO&AUTO DIFRNTL WBC COUNT <td>C BC AND DIFFERENTIAL</td><td>Routine</td><td>04/05/2021 1:30 AM EDT</td><td></td><td> </td> 04/05/2021 01:30:00 AM [facility] THYROID STIMULATING HORMONE TSH <td>TSH</td><td>Routin e</td><td>04/05/2021 1:30 AM EDT</td><td></td><td> </td> 04/05/2021 01:30:00 AM [facility] HEMOGLOBIN GLYCOSYLATED A1C <td>HEMOGLOBIN A1C</td><td>Routine</td><td>04/05/2021 1:30 AM EDT</td><td></td><td> </td> 04/05/2021 01:30:00 AM [facility] SALICYLATE LEVEL <td>SALICYLATE LEVEL</td><td >STAT</td><td>04/05/2021 1:30 AM EDT</td><td></td><td> </td> 04/05/2021 01:30:00 AM [facility] LIPID PANEL <td>LIPID PANEL</td><td>Rout ine</td><td>04/05/2021 1:30 AM EDT</td><td></td><td> </td> 04/05/2021 01:30:00 AM [facility] COMPREHENSIVE METABOLIC PANEL <td>COMPREHENSIVE METABO LIC PANEL</td><td>STAT</td><td>04/05/2021 1:30 AM EDT</td><td></td><td> </td> 04/05/2021 01:30:00 AM [facility] Non-covered item or service NON-COVERED ITEM OR SERVICE 03/12 12:00:00 AM [facility] ECG ROUTINE ECG W/LEAST 12 LDS TRCG ONLY W/O I&R ELECTROCARD IOGRAM TRACING 03/27/2021 12:00:00 AM [facility] [address]65 SARS-COV-2 COVID-19 AMP PRB 03/27/2021 12:00:00 AM [facility] URNLS DIP STICK/TABLET RGNT AUTO W/O MICROSCOPY URINALYSIS A UTO W/O SCOPE 03/27/2021 12:00:00 AM [facility] COLLECTION VENOUS BLOOD VENIPUNCTURE ROUTINE VENIPUNCTURE 12:00:00 AM [facility] BLOOD COUNT COMPLETE AUTO&AUTO DIFRNTL WBC COUNT COMPLETE CB C W/AUTO DIFF WBC 03/27/2021 12:00:00 AM [facility] 46236 DRUG SCREEN QUANTALCOHOLS 03/27/2021 12:00:00 AM [facility] 08637 DRUG TEST PRSMV DIR OPT OBS 03/27/2021 12:00:00 AM [facility] MAGNESIUM ASSAY OF MAGNESIUM 03/27/2021 12:00:00 AM [facility] 07165 ANALGESICS NON-OPIOID 1 OR 2 03/27/2021 12:00:[address] [facility] URINE TEST VISUAL COLOR CMPRSN METHS URINE PREGNAN CY TEST 03/27/2021 12:00:00 AM [facility] TROPONIN QUANTITATIVE ASSAY OF TROPONIN QUANT 03/27/2021 12:00:00 A M [facility] COMPREHENSIVE METABOLIC PANEL COMPREHEN METABOLIC PANEL 03/12 12:00:00 AM [facility] Infusion, normal saline solution , 1000 cc 03/27/2021 12:00:00 AM [facility] EMERGENCY DEPT VISIT HIGH SEVERITY&THREAT FUNCJ EMERGENCY DE PT VISIT 03/27/2021 12:00:00 AM [facility] URINALYSIS MICROSCOPIC ONLY MICROSCOPIC EXAM OF URINE 2020 12:00:00 AM [facility] EMERGENCY DEPARTMENT VISIT LOW/MODER SEVERITY EMERGENCY DEPT VISIT 03/20/2021 12:00:00 AM [facility] Psychiatric Diagnostic Evaluation (Non-Medical) 03/20/2021 12:00:00 AM EDT - 03/20/2021 12:00:00 AM EDT [facility] ([facility]) Psychiatric Diagnostic Evaluation (Non-Medical) 2020 12:00:00 AM EDT [facility] ([facility]) EMERGENCY DEPARTMENT VISIT MODERATE SEVERITY EMERGENCY DEPT VISIT 03/15/2021 12:00:00 AM [facility] Injection, ketorolac tromethamine, per 15 mg 12:00:00 AM [facility] THERAPEUTIC PROPHYLACTIC/DX INJECTION SUBQ/IM THER/PROPH/PAULY G INJ SC/IM 03/06/2021 12:00:00 AM [facility] FIBRIN DGRADJ PRODUCTS D-DIMER QUANTITATIVE FIBRIN DEGRADATI ON QUANT 03/03/2021 12:00:00 AM [facility] AMYLASE ASSAY OF AMYLASE 02/14/2021 12:00:00 AM [facility] LIPASE ASSAY OF LIPASE 02/14/2021 12:00:00 AM [facility] OFFICE OUTPATIENT VISIT 15 MINUTES 11/13 12:00:00 AM EDT - 11/13/2020 12:00:00 AM EDT [facility] ([facility]) OFFICE OUTPATIENT VISIT 15 MINUTES 11/13/2020 12:00:00 AM EDT [facility] ([facility]) INTRODUCE COVID19 VACC IN MUSCLE, PERC, NEW TECH 6 11/12/2020 12:00:00 AM [facility] Extended Individual Psychotherapy - 45 min 08/27/2020 12:00:00 AM EST - 08/27/2020 12:00:00 AM EST [facility] ([facility]) Extended Individual Psychotherapy - 45 min 12:00:00 AM [facility] ([facility]) Psychiatric Diagnostic Evaluation (Non-Medical) 08/23/2020 12:00:00 AM EST - 08/23/2020 12:00:00 AM EST [facility] ([facility]) Psychiatric Diagnostic Evaluation (Non-Medical) 2020 12:00:00 AM EST [facility] ([facility]) Extended Individual Psychotherapy - 45 min 06/24/2020 12:00:00 AM EST - 06/24/2020 12:00:00 AM EST [facility] ([facility]) Extended Individual Psychotherapy - 45 min 0 12:00:00 AM EST [facility] ([facility]) Results ID Date Data Source [id number] 05/17/2021 02:13:00 PM EDT [facility] Name Value Range Interpretation Code Description Data Stephanie rce(s) Supporting Document(s) SARS coronavirus 2 RNA [Presence] in Res piratory specimen by CORDELL with probe detection [facility]GAT[facility] This lab was ordered by [facility] a nd reported by [facility]. ID Date Data Source [id number] 05/15/2021 09:57:00 AM EDT [place] [id number] NAME: YARELI HATCH#: [id number] PHYSICIAN: DYLAN RIBEIROACCOUNT #: [id number] ADM. DATE: 05/13/21PATIENT : 00 DISCH. DATE: [50}DISCHARGE SUMMARYMHU discharge planNicotine Replacement TherapySmoking Status Current some day smokeriStopEND ENDDICT: 05/15/2157 Electronically SignedTRANS:05/15/2157 DYLAN RIBEIROTRANS BY:DATE SIGNED:05/15/21TIME SIGNED: [id number] COPY TO: Name Value Range Interpretation Code Description Data Stephanie rce(s) Supporting Document(s) ID Date Data Source [id number] 05/15/2021 09:25:00 AM EDT [place] [id number] HEALTH DISCHARGE SUMMARYPATIENT NAME: YARELI HATCH MR#: [id number] PHYSICIAN: DYLAN RIBEIROAUTHOR: Dylan Aquino DATE: 05/13/21 RM#: [id number] DATE:[id number]-yrik-eni single white femaleChief Complaint"I had a suicidal thought due to the fact that I lost my cousin"Reason for AdmissionSuicidal ideations with 2 plan; jumping off a bridge or drinking handsanitizer. She also has increased depression and impulsive behaviorsHistory of Presenting [id number] female was brought to the emergency department by [facility] with complaints of suicidal ideations with a plan to jump in front of amoving vehicle or drinking and business broker. Patient did admit upon arrival tot emergency department that she did attempt to drink hand business broker but wasunsuccessful due to staff interventio n at her living facility, [facility]. Uponarrival to the emergency department patient [...] the PSA. Patient is a resident at [facility] and is on an AOT.Patient met [...] who [facility]. Patient never [...] second degree andcharges of disorderly conductHospital CourseHospital [id number] female was admitted involuntarily to mental health after expressingsuicidal ideations and an increased depression stemming from the of catrachita roughly a few weeks ago. Patient states she did have 2 plans 1 thatincluded strangulation and the other 1 jumping in front of moving traffic.Patient was initially cooperative upon arrival to the emergency department mehreen did become agitated and anxious where she attempted to leave that resultedin a code orange and receiving to medication injections at separate intervals.Patient was cooperative with the psychiatric assessment and was pleasant, calmand engageable. She was placed on a one-to-one observation upon admission andthen ultimately was placed on a close observation level as her behaviorsjustified this. Patient admitted to getting upset at [facility], because she was not [...] [facility] after reviewing her labs and that again was clearedmedically by the hospitalist to receive psychiatric care in an inpatientpsychiatric setting. At no point during the course of her admission to thepatient experience any new medical complaints or develop any new medicalconditions. At no point during the course of her admission did she have anyphysical or medical complaints.Prior to discharge the [facility] team, her intensive egg caser, staff from [facility],Lorraine her AOT coordinator, members from her treatment team at [facility] all joined a video conference to decide the best course oftreatment for the patient as well as take Mairlu's request intoconsideration. All parties involved in the meeting decided that it would be agood try for her to go and live with her friend Aroldo, who lives in [place],and to have her services transferred to [facility] as this has been herrequest. It is decided that patient will be [facility] her belongings and sign the paperwork necessary todischarge her from [facility] and staff from [facility] will drive her to her friend Celina in [place]. Lorraine, will transfer all the necessary paperwork andarrange for her services to be completed in [place]. Cata, the treatmentcoordinator, is going to be in contact with her outpatient mental healthproviders in [place] to make the proper arrangements for transfer [...] TimeB/P 126/82 05/15 0906Pulse Ox 98 05/15 0643Temp 97 .3 05/15 0643Pulse 56 05/15 0643Resp 18 05/15 0643Patient's Discharge ConditionDischarge Date 05/15/21Discharge Conditon fairDischarge DispositionPatient is being discharged back to [facility] [place]aminationMusculoskeletalMuscle Strength & Tone normalGait [...] rce(s) Supporting Document(s) ID Date Data Source [id number] 05/14/2021 09:46:00 AM EDT [place] [id number] PSYCH[facility]RIC ASSESSMENTPATIENT NAME: YARELI HATCH MR#: [id number] PHYSICIAN: DYLAN RIBEIROAUTHOR: Dylan Aquino DATE: 05/13/21 RM#: [id number] single white femaleChief Complaint"I had a suicidal thought due to the fact that I lost my cousin"Reason for AdmissionSuicidal ideations with 2 plan; jumping off a bridge or drinking handsanitizer. She also has increased depression and impulsive behaviorsHistory of Presenting [id number]-vfa female was brought to the emergency department by [facility] with complaints of suicidal ideations with a plan to jump in front of amoving vehicle or drinking and business broker. Patient did admit upon arrival tot emergency department that she did attempt to drink hand business broker but wasunsuccessful due to staff intervention at her living facility, [facility]. Uponarrival to the emergency department patient [...] the PSA. Patient is a resident at [facility] and is on an AOT.Patient met [...] who [facility]. Patient never [...] TimeChemistrySodium (136 - 147 mmol/L) 140 05/13 020Potassium (3.5 - 5.1 mmol/L) 3.8 05/13 0205Chloride (99 - 110 mmol/L) 109 05/13 205Serum Bicarbonate (20 - 33 mmol/L) 25 05/13nion Gap (10.0 - 20.0) 9.8 L 05/13 0205BUN (7 - 23 mg/dL) 14 05/13 0205Creatinine (0.500 - 1.300 mg/dL) 0.615 05/13 020Estimated GFR/1.73 m2 (mL/min) > 60 05/13 020Glucose (70 - 110 mg/dL) 96 05/13 0205Calcium (8.3 - 10.7 mg/dL) 9.3 05/13 020Total Bilirubin (0.1 - 1.1 mg/dL) 0.3 05/13 0205AST (6 - 38 U/L) 23 05/13 0205ALT (6 - 54 U/L) 45 05/13 0205 Alkaline Phosphatase (45 - 117 U/L) 99 05/13 205Total Protein (6.0 - 7.8 g/dL) 7.3 05/13 0205Albumin (3.5 - 5.0 g/dL) 3.7 05/13 020Globulin (2.3 - 3.5 g/dL) 3.6 H 05/13lbumin/Globulin Ratio (1.0 - 2.5) 1.0 05/13 205Serum HCG, Qual (Negative) Negative 05/13 205HematologyWBC (4.0 - 10.5 x10E3/uL) 9.13 05/13 0205RBC (4.20 - 5.40 x10E6/uL) 4.12 L 05/13 0205Hgb (12.0 - 16.0 g/dL) 11.9 L 05/13 0205Hct (37.0 - 47.0 %) 37.2 05/13 0205MCV (81.0 - 99.0 fL) 90.3 05/13 0205MCH (27.0 - 31.0 pg) 28.9 05/13 0205MCHC (32.7 - 35.6 g/dL) 32.0 L 05/13 0205RDW (11.5 - 14.0 %) 12.9 05/13 0205Plt [...] RBC % (auto) (0 %) 0 05/13 0205SerologyCOVID-19 (CORDELL) (NEGATIVE) NEGATIVE 05/13 0959ToxicologySalicylates (0.0 - 20.0 mg/dL) < 1.7 05/13 0205Opiates Screen (NEGATIVE) NEG 05/13 0155Methadone Screen (NEGATIVE) NEG 05/13 0155Acetaminophen (0 - 30 ug/mL) < 2.0 05/13 0205Barbiturate Screen (NEGATIVE) NEG 05/13 0155Phencyclidine Screen (NEGATIVE) NEG 05/13 0155Amphetamines Screen (NEGATIVE) NEG 05/13 0155Benzodiazepines (NEGATIVE) POS H 05/13 0155Cocaine Screen (NEGATIVE) NEG 05/13 0155Cannabinoids (NEGATIVE) NEG 05/13 0155Ethyl Alcohol (NONE DETECTED g/dL) 0.004 H 05/13 205UrinesUrine Color Yellow 05/13 155Urine Appearance Turbid 05/13 155Urine pH (5.0 - 8.0) 7.0 05/13 155Ur Specific Randle (1.010 - 1.025) 1.022 05/135Urine Protein (Negative) Negative 05/13 155Urine Ketones (NEGATIVE) [...] 05/13 155 Urine Glucose (NEGATIVE) Negative 05/13 5579Mokbudejuevb37/02 2349 BLOOD: Blood Culture - CANCancelled: Cancelled [...] to have her ownpersonal clothing. Cata, the learning and development coordinator, will reach out to [facility] forcollateral information as well as Lorraine Gandara. [...] in agreement shewill be discharged back to [facility].Assessment/PlanDiagnosis1. Major depressive disorderStatus Chronic2. Bipolar disorder3. [...] rce(s) Supporting Document(s) ID Date Data Source [id number] 05/13/2021 09:59:00 AM EDT [facility] Name Value Range Interpretation Code Description Data Stephanie rce(s) Supporting Document(s) LCOVID-19, CORDELL NEGATIVE [facility] This lab was ordered by [facility] and reported by [facility]. ID Date Data Source [id number] 05/13/2021 10:56:00 AM EDT [facility] Name Value Range Interpretation Code Description Data [facility] Supporting Document(s) COVID-19, CORDELL NEGATIVE NEGATIVE [facility] Methodology: Isothermal Nucleic Acid Amp [...] Emergency Use Authorization. ID Date Data Source [id number] 05/13/2021 02:58:00 AM EDT [facility] Name Value Range Interpretation Code Description Data [facility] Supporting Document(s) GLU 96 mg/dL 70-110 [facility] Patients taking Sulfasalazine may have f alsely depressedGlucose levels. Patients taking Sulfapyridine may havefalsely elevated Glucose levels. Patients should be drawnfor Glucose before the initial administration of eitherdrug. BUN 14 mg/dL 7-23 [facility] CRE 0.615 mg/dL 0.500-1.300 [facility] GFR > 60 mL/min [facility] CHLORIDE 109 mmol/L 99-110 [facility] NA 140 mmol/L 136-147 [facility] POTASSIUM 3.8 mmol/L 3.5-5.1 [facility] TCO2 25 mmol/L 20-33 [facility] ANION GAP 9.8 10.0-20.0 L [facility] CA 9.3 mg/dL 8.3-10.7 [facility] ALKALINE PHOS 99 U/L 45-117 [facility] TP 7.3 g/dL 6.0-7.8 [facility] ALB 3.7 g/dL 3.5-5.0 [facility] ESRD Dialysis patient Albumin reference range: 2.9-4.4 g/dL GL 3.6 g/dL 2.3-3.5 H [facility] A/G 1.0 1.0-2.5 [facility] T. BILIRUBIN 0.3 mg/dL 0.1-1.1 [facility] [place] Total Bilirubin is n ot recommended forpatients undergoing treatment with eltrombopag (Promacta)due to the potential for falsely elevated results. ALTI 45 U/L 6-54 [facility] Patients taking Sulfasalazine and/or Sul fapyridine may havefalsely depressed ALT levels. Patients should be drawn forALT before the initial administration of either drug. AST 23 U/L 6-38 [facility] Patients taking Sulfasalazine and/or Sul fapyridine may havefalsely depressed AST levels. Patients should be drawn forAST before the initial administration of either drug. ID Date Data Source [id number] 05/13/2021 02:18:00 AM EDT [facility] Name Value Range Interpretation Code Description Data Stephanie rce(s) Supporting Document(s) WBC 9.13 x10E3/uL 4.0-10.5 [facility] RBC 4.12 x10E6/uL 4.20-5.40 [facility] Hemoglobin 11.9 g/dL 12.0-16.0 [facility] Hematocrit 37.2 % 37.0-47.0 [facility] MCV 90.3 fL 81.0-99.0 [facility] MCH 28.9 pg 27.0-31.0 [facility] MCHC 32.0 g/dL 32.7-35.6 [facility] RDW 12.9 % 11.5-14.0 [facility] Platelet count 241 x10E3/uL 150-450 [facility] ital MPV 9.5 fl 6.9-9.5 [facility] Neutrophils 63.3 % 34-64 [facility] Lymphocytes 27.4 % 25-45 [facility] Monocytes 7.7 % 1.7-10.6 [facility] Eosinophils 1.2 % 0.4-7.0 [facility] Basophils 0.2 % 0.1-2.0 [facility] Imm. Gran. 0.2 % 0.1-2.0 [facility] Abs. Neutro. 5.78 x10E3/uL 1.2-7.6 [facility] [place] Abs. Lymph. 2.50 x10E3/uL 1.0-3.5 [facility] Abs. [place]. 0.70 x10E3/uL 0.1-1.0 [facility] Abs. Eosin. 0.11 x10E3/uL 0.1-0.7 [facility] Abs. Baso. 0.02 x10E3/uL 0.0-0.1 [facility] Abs. Imm. Gran. 0.02 x10E3/uL 0.0-0.1 [facility] ANRBC% 0 % 0 [facility] ID Date Data Source [id number] 05/13/2021 02:58:00 AM EDT [facility] Name Value Range Interpretation Code Description Data Stephanie rce(s) Supporting Document(s) HCG QUAL SERUM Negative Negative [facility] ID Date Data Source [id number] 05/13/2021 02:58:00 AM EDT [facility] Name Value Range Interpretation Code Description Data Stephanie rce(s) Supporting Document(s) ETOH 0.004 g/dL NONE DETECTED [facility] ID Date Data Source [id number] 05/13/2021 02:58:00 AM EDT [facility] [place] Name Value Range Interpretation Code Description Data Stephanie rce(s) Supporting Document(s) ACETAMINOPHEN < 2.0 ug/mL 0-30 [facility] ID Date Data Source [id number] 05/13/2021 02:58:00 AM EDT [facility] [place] Name Value Range Interpretation Code Description Data Stephanie rce(s) Supporting Document(s) SALICYLATE < 1.7 mg/dL 0.0-20.0 [facility] ID Date Data Source [id number] 05/13/2021 02:41:00 AM EDT [facility] [place] Name Value Range Interpretation Code Description Data Stephanie rce(s) Supporting Document(s) PCP VISTA NEG NEGATIVE [facility] MINIMUM LEVEL OF DETECTION IS 25 ng/ml BENZODIAZEPINES POS NEGATIVE [facility] al POSITIVE RESULTS UNCONFIRMEDMINIMUM LEVE L OF DETECTION IS 200 ng/ml COCAINE VISTA NEG NEGATIVE [facility] MINIMUM LEVEL OF DETECTION IS 300 ng/ml AMPHETAMINES NEG NEGATIVE [facility] al MINIMUM LEVEL OF DETECTION IS 1000 ng/ml BARBITURATES NEG NEGATIVE [facility] al CUTOFF CONCENTRATION IS 200 ng/ml CANNABINOIDS NEG NEGATIVE [facility] al CUTOFF CONCENTRATION IS 50 ng/ml METHADONE VISTA NEG NEGATIVE [facility] al MINIMUM LEVEL OF DETECTION IS 300 ng/ml OPIATE VISTA NEG NEGATIVE [facility] MINIMUM DETECTION LEVEL IS 300 ng/ml ID Date Data Source [id number] 05/13/2021 02:30:00 AM EDT [facility] [place] Name Value Range Interpretation Code Description Data Stephanie rce(s) Supporting Document(s) URINE COLOR Yellow [facility] UAPR Turbid [facility] UGLU Negative NEGATIVE [facility] URINE BILIRUBIN Negative NEGATIVE [facility] al UKET Negative NEGATIVE [facility] USG 1.022 1.010-1.025 [facility] UBLO Negative NEGATIVE [facility] UpH 7.0 5.0-8.0 [facility] UPRO Negative Negative [facility] UUB 1.0 mg/dL 0.2-1.0 [facility] UNIT Negative Negative [facility] ULEU Trace Negative [facility] ID Date Data Source [id number] 05/13/2021 02:30:00 AM EDT [facility] [place] Name Value Range Interpretation Code Description Data Stephanie rce(s) Supporting Document(s) URINE RBC 0-2 RBCs/HPF NONE SEEN [facility] URINE WBC 0-2 WBCs/HPF NONE SEEN [facility] URINE BACTERIA Few NONE SEEN [facility] l URINE EPI. Moderate NONE SEEN [facility] URINE CRYSTAL MODERATE AMORPHOUS NONE SEEN [facility] ID Date Data Source [id number] 05/14/2021 01:39:00 AM EDT [facility] [place] Physician DocumentationClaxton-Naveen Hinkle edical CenterName: Yareli DuvallAge: 20 yrsSex: FemaleDOB: 2000MRN: [id number] Date: 05/13/2021Time: 01:43Account#: [id number] MD: None, noneED Physician Chetan Grover Summary:05/13/21 23:47Hospitalization OrderedHospitalization Status: Inpatient AdmissionbrProvider: Anjel OneillmbrLocation: Mental Health UnitbrCondition: UnchangedbrProblem: an acute exacerbationbrSymptoms: are unchangedbrRoom Assignment:brDiagnosis- Schizophrenia, unspecifiedbrAdditional Information- Admission Type: Inpatient Status.brForms:- Medication Reconciliationbr- SBARbr- Medication Reconciliation Form - 2nd Copybr- Psych. SBARbrHPI:05/206:30 Obese 20-year-old female presents by PD for evaluation of suicidalideation with plan brto harm self by jumping from a moving vehicle. Patient was also said to haveattemptedto consume hand business broker and active self- harm as well. Patient well-known toED stafffor multiple attempts.Historical:- Allergies: Haldol; Risperdal;- Home Meds:1. aripiprazole 400 mg intramuscular suspension,extended release syringe 400 stovwpz48 days2. ibuprofen 400 mg Oral tablet 1 [...] during both of theseepisodes..05/201:55 Order name: Acetaminophen Nmtamyz73/0201:55 Order name: CBC with ijjqtl03:55 Order name: CMPf:55 Order name: COVID-19 PROFILE+LAB:55 Order name: JOPTnj32/0201:55 Order name: Jddokmowq87/0201:55 Order name: Salicylate Hfyvrvp97/0201:55 Order name: Serum HCG Khdouytlgnkfh51/0201:55 Order name: Triage - Drug Uhbugmxh63/0201:55 Order name: UAf:55 Order name: Diet - Mental Health Tray (call dietary); Complete Time:00::55 Order name: Belongings List; Complete Time: 00::55 Order name: Document Weight and Height for BMI; Complete Time: 00::55 Order name: Mental Health Evaluation; Complete Time: 00::55 Order name: Mental Health Level 3; Complete Time: 00::55 Order name: VS q shift; Complete Time: 00:42wDispensed Medications:08:45 Drug: diphenhydrAMINE 50 mg [diphenhydramine 50 mg/mL injection solution(1 mL)] Route: tlmIM; Site: left vastus lateralis;09:54 Follow up: Response: No adverse ycyuhpdaiub03:46 Drug: LORazepam 2 mg [lorazepam 2 mg/mL injection solution (1 mL)] Route:IM; Site: tlmleft vastus lateralis;09:54 Follow up: Response: No adverse gckdcgvoobs78:47 Drug: Geodon 20 mg Route: IM; Site: right deltoid;ef109:54 Follow up: Response: No adverse wdvncjslweu45:35 Drug: Geodon 20 mg [ziprasidone 20 mg/mL (final concentration)intramuscular solution ml4(1 mL)] Route: IM; Site: right gluteus;18:35 Drug: LORazepam 2 mg [lorazepam 2 mg/mL injection solution (1 mL)] Route:IM; Site: dj0lvufc deltoid;18:35 Drug: diphenhydrAMINE 50 mg [diphenhydramine 50 mg/mL injection solution(1 mL)] Route: ml4IM; Site: left deltoid;21:47 Not Given (Patient Refused): Topiramate 75 mg PO shezpq346:48 Not Given (Patient Refused): Loratadine 10 mg PO vukulo205:48 Not Given (Patient Refused): Montelukast 10 mg PO otyrll138:48 Not Given (Patient Refused): Propranolol 10 mg PO uluxzx199:48 Not Given (Patient Refused): sertraline 50 mg PO bkarcl890:55 CANCELLED (Physician Discretion): Zosyn 3.375 grams IVPB aydkdq32/0301:20 Drug: Prazosin 2 mg [prazosin 1 mg capsule (2 caps)] Route: PO;jw501:20 Drug: Propranolol 10 mg [propranolol 10 mg tablet (1 tabs)] Route: PO;os6Korwuztqpl:Dispatcher [employer] Magaly Manjarrez RN RN tlmHNils mark MD MD zx8RcorsFortunato humphrey RN RN xh1LiyngbutAmi arthur RN RN ef1Roberts, Brandon, MD MD brWest, Fayeanne, RN RN fwLycrawley memorial hospitalDanae RN RN ov6Sqfaxysfuaq: (The following items were deleted from the chart)05/223:55 23:49 Zosyn 3.375 grams IVPB once ordered. brbr23:56 23:49 Call Lab ordered. br br Name Value Range Interpretation Code Description Data Stephanie rce(s) Supporting Document(s) ID Date Data Source [id number] 05/14/2021 01:39:00 AM EDT [facility] [place] Nurse's NotesClaxtonHorton [facility] Medical Tootie terName: Yareli AdamelAge: 20 yrsSex: FemaleDOB: 2000MRN: [id number] Date: 05/13/2021Time: 01:43Account#: [id number] MD: None, noneDiagnosis: Schizophrenia, unspecifiedPresentation:05/201:45 Presenting complaint: [facility] Police officers #[id number], #[id number] forcomplaints of ktsuicidal ideation with plan to jump in front of a moving vehicle, alsoattempted todrink hand business broker but was unsuccessful.02:26 International Travel Fever No. Communicable Disease Screen: Negative forfever>/= 100 fwdegrees Fahrenheit. Communicable disease screen is negative. (-) rash orunusual skinlesion (-) travel/contact with traveler (-) respiratory symptoms.Communication.Communication Speaks Hungarian? Yes, is preferred language.02:26 Acuity: Triage 2fw02:26 [...] of amount of people live, such as [facility], family care, [facility], etc?yes. Haveyou traveled to a location with widespread or ongoing COVID-19 community spreadorosaint [facility]? no Have you traveled internationally or had [...] 400 mg intramuscular suspension,extended release syringe 400 aayiosx08 days2. ibuprofen 400 mg Oral tablet 1 [...] apparent distress at this time. Nochanges from se9ngjtmmqcro documented assessment.05/300:38 Reassessment: Patient appears in no apparent distress at this time. Nochanges from op7ajqkxcaotd documented assessment.Psychosocial:05/219:29 SAFE Act Report Not Completed. [...] feeling this way because of the deathof hercousin. Pt states that she has been feeling suicidal for over a week. Pt deniesHI. Ptstates that her last suicide attempt was in February of 2020 by overdose. Ptdenies selfharm. Pt was last inpatient at [facility] on 05/06/21. [facility]. Pt has a diagnosis [...] 2020 overdose Other: BPD, ADHD.MentalHealth Admissions: 05/06/21, [facility] Current Outpatient Mental [...] notified ofpatients status at 23:13, Mental Health WIND TURBINE SERVICE TECHNICIAN made aware of pt status at 22:50,JOSE LUIS Jo. Disposition: Medically cleared for disposition by Dr Grover. PsychiatricConsultis performed by phone with Dr Dylan Ribeiro NP The patient is admitted to [facility].23:15 Legal Status: Patient's legal status will be Emergency: 9.39. Commitmentpapers are nhcompleted. Pt is provided with a copy of her legal status and rights. DSM-V DXAxis Idiagnosis: Schizoaffective D/O [place] II diagnosis: Deferred [place] III diagnosis:None.[place] IV diagnosis: poo impulse control. Poor coping skills. InsurancePre-Certification: Not Required. [facility] Admission Criteria: The patient isexperiencingsuicidal ideation. The patient requires continuous observation and/or controltoprotect self, others or property. The patient's care requires a multi-modaltreatmentplan under close supervision and coordination due to the complexity andseverity of thepatient's symptoms. The patient requires administration and monitoring ofpsychoactivemedications by skilled medical providers due to the side effects of thepsychoactivemedications or significant dosage adjustments. Awaiting transfer to [facility].Transition ofcare to Pt will be escorted by [facility] and [facility] RN. The patient is not a servicemember ormilitary dependent. [place] Suicide Severity Rating Scale: Suicidal IdeationRating 5;Intensity of Ideations Rating 25; Suicidal Behavior Rating 0.Psych:02:00 Subjective: Patient's mood is sad, Delusions are denied, Hallucinationsare denied py5Hhperp thoughts of suicide. Plan for suicide is [...] Triage completed.fw07:28 Appears to be sleeping.tlm07:28 Psychosocial Theater Technician.tlm07:28 Sitter at bedside. Diet tray given.tlm07:50 Appears agitated. 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 Resting quietly.jw500:38 Sitter at bedside.tk5Ggefqdqcojan Medications:05/208:45 Drug: diphenhydrAMINE 50 mg [diphenhydramine 50 mg/mL injection solution(1 mL)] Route: tlmIM; Site: left vastus lateralis;09:54 Follow up: Response: No adverse wniknhxbsei00:46 Drug: LORazepam 2 mg [lorazepam 2 mg/ mL injection solution (1 mL)] Route:IM; Site: tlmleft vastus lateralis;09:54 Follow up: Response: No adverse wpxtkyfamjr15:47 Drug: Geodon 20 mg Route: IM; Site: right deltoid;ef109:54 Follow up: Response: No adverse poixqjpkvse23:35 Drug: Geodon 20 mg [ziprasidone 20 mg/mL (final concentration)intramuscular solution ml4(1 mL)] Route: IM; Site: right gluteus;18:35 Drug: LORazepam 2 mg [lorazepam 2 mg/mL injection solution (1 mL)] Route:IM; Site: cv0foqpv deltoid;18:35 Drug: diphenhydrAMINE 50 mg [diphenhydramine 50 mg/mL injection solution(1 mL)] Route: ml4IM; Site: left deltoid;21:47 Not Given (Patient Refused): Topiramate 75 mg PO cysdlp496:48 Not Given (Patient Refused): Loratadine 10 mg PO :48 Not Given (Patient Refused): Montelukast 10 mg PO :48 Not Given (Patient Refused): Propranolol 10 mg PO elfxde121:48 Not Given (Patient Refused): sertraline 50 mg PO dzatev953:55 CANCELLED (Physician Discretion): Zosyn 3.375 grams IVPB bluwhp53/0301:20 Drug: Prazosin 2 mg [prazosin 1 mg capsule (2 caps)] Route: PO;jw501:20 Drug: Propranolol 10 mg [propranolol 10 mg tablet (1 tabs)] Route: PO;pk4Zmunfgl:05/223:47 Decision to Hospitalize by Provider.br1:20 Disposition: Admitted to Psych with chart.pe0Fjohxdspx: unchangedInstructed on need for admit, Demonstrated understanding of instructions.Discharge Assessment: Patient verbalized understanding of dispositioninstructions.Patient has no functional deficits.01:39 Patient left the ED.ev1Hjrwedpmmq:Magaly Gray, RN RN tlmTKatelyn cr, RN Fortunato Reyes, RN JOSE LUIS bl6OgjttfqcAmi Medrano, Zeeshan Eason RN, MD MD brWest, Fayeanne, RN RN fwHolmes, Nicole nhLynch, McKenzie, RN RN xa1Otfubpndixr: (The following items were deleted from the chart)05/207:28 07:28 Awaiting disposition, klvvko76:17 23:13 Disposition: Medically cleared for disposition by Dr Grover.Psychiatric Consult [facility]0:37 00:37 Primary Nurse role handed off by Danae Ordoñez, JOSE LUIS xr3ky546:37 00:37 Fortunato Mark, JOSE LUIS is Primary Nurse. jr8by061:25 05/13 01:00 Subjective: Patient's mood is sad, Delusions are denied,Hallucinations are xx4gridfq Having thoughts of suicide. Plan for suicide is see ntriage jw511/0301:25 05/13 01:00 Objective: Patient is cooperative, Speech is soft, Affect isflat, jw5 jw511/0301:25 05/13 01:00 Interventions: Removed personal items and placed in bag.Patient placed in yz7zrqwfrfq gown. Searched person for dangerous items. Urine collected and sentfor urinedrug test. Observation Level Level 3 Sitter needed. Provider notified. Nando Charge nurse notified. Fortunato Mark RN Level 3 order placed. jw5 Name Value Range Interpretation Code Description Data Stephanie rce(s) Supporting Document(s) ID Date Data Source [id number] 05/08/2021 12:28:00 PM EDT [place] [id number] NAME: YARELI HATCH#: [id number] PHYSICIAN: HUBER MEDINA #: [id number] ADM. DATE: 05/06/21PATIENT : 00 DISCH. DATE: [50}DISCHARGE SUMMARYMHU discharge planNicotine Replacement TherapySmoking Status Current some day smokeriStopEND ENDDICT: 05/08/21 1228 Electronically SignedTRANS:05/08/21 1228 DYLAN DEVI BY:DATE SIGNED:05/08/21TIME SIGNED: 1228REPORT COPY TO: Name Value Range Interpretation Code Description Data Stephanie rce(s) Supporting Document(s) ID Date Data Source [id number] 05/08/2021 12:14:00 PM EDT [place] [id number] HEALTH DISCHARGE SUMMARYPATIENT NAME: YARELI HATCH MR#: [id number] PHYSICIAN: BROOKLYN ONEILL MDAUTHOR: Dylan Aquino DATE: 05/06/21 #: [id number] DATE:QhujbqoSmonkxtrcbndpf67-sulc-zrn single white femaleChief Complaint"I was impulsive and did something stupid"Reason for AdmissionUnsafe behaviors with a history of poor impulse control and suicidal ideations.Patient was unable to contract for safety prior to admissionHistory of Presenting Laedcnq81-bbwc-kfi female who was [facility] on an involuntary statusafter ingesting a bottle of shampoo. Patient was brought here by police aftershe eloped numerous times from [facility]. [facility] patient stated she was discharged before [...] the substances andshe stated "I do not know". When she [...] to her that she is on an [facility] list [place] as her place of residence. [...] female who lives in a supportive housing facility,[facility]. Patient was never graduated from high [...] second degree and chargesof disorderly conductHospital CourseHospital Flvcxc56-bduq-zhw female was admitted to mental health on [...] not experience any ill side effects from medications.[facility] staff did reach out to the treatment team requesting a meeting prior todischarge with Marilu regarding her frequent hospitalizations and what safetyplans can be put into place to prevent her from coming back. The safety planwas worked out with Madelin Michel the learning and development coordinator, and [facility]. At time of discharge patient continues [...] by opening up to the staff at [facility] shefeels this would be an effective [...] is also confirmed by the staff from [facility].Patient's Discharge ConditionVital SignsVital Signs-LastResult Date TimeB/P 132/78 05/08 0822Pulse Ox 99 05/07 1234Temp 97.7 05/07 1234Pulse 63 05/07 1234Resp 16 05/07 1234Patient's Discharge ConditionDischarge Date 05/08/21Discharge Conditon stableDischarge DispositionPatient is to be discharged back [facility]ExaminationMusculoskeletalMuscle Strength & Tone normalGait normalStation normalMental [...] SIGNED: 05/08/21 Electronically SignedTIME SIGNED: 1227 DYLAN RIBEIRO Name Value Range Interpretation Code Description Data Stephanie rce(s) Supporting Document(s) ID Date Data Source [id number] 05/07/2021 05:08:00 PM EDT [facility] [place] [id number] HEALTH HISTORY AND PHYSICALPATIENT NAME: YARELI HATCH MR#: [id number] PHYSICIAN: BROOKLYN ONEILL MDAUTHOR: Ericka Dean MD DATE: 05/06/21 RM#: [id number] Complaint/Admit ReasonIngested shampoo/conditioner to end her lifeHistory of Presenting IllnessHISTORY IS LIMITED THE PT REFUSED TO BE SEEN BY THE MEDICINE DKPWUZJ31 yo F who presents to the hospital with police because she ingested shampooand conditoner in an effort to end her life. [facility] and told staff [...] seen by the medicine serviceExamVital SignsVital Signs-24 HRS05/[id number] 5905 0828 1234Temp 97.5 97.7Pulse 77 63Resp 16 16B/P 128/83 123/78 136/84 115/75B/P MeanPulse Ox 96 99O2 DeliveryO2 Flow GaeeQzJ5Ybit ReviewLaboratory DataRecent Labs-48 hours05/06424207 0051ChemistrySodium (136 - 147 mmol/L) 139Potassium (3.5 [...] TurbidUrine pH (5.0 - 8.0) 8.0Ur Specific Randle (1.010 - 1.025) 1.022Urine Protein (Negative) TraceUrine [...] psych serviceDATE SIGNED: 05/07/21 Electronically SignedTIME SIGNED: 1048 ERICKA DEAN MD Name Value Range Interpretation Code Description Data Stephanie rce(s) Supporting Document(s) ID Date Data Source [id number] 05/07/2021 12:49:00 PM EDT [facility] [address] PSYCHIATRIC ASSESSMENTPATIENT NAME: YARELI HATCH MR#: [id number] PHYSICIAN: BROOKLYN ONEILL MDAUTHOR: Dylan Aquino DATE: 05/06/21 RM#: [id number]-mlcj-brf single white femaleChief Complaint"I was impulsive and did something stupid"Reason for AdmissionUnsafe behaviors with a history of poor impulse control and suicidal ideations.Patient was unable to contract for safety prior to admissionHistory of Presenting Sezzddx67-zzfc-zjc female who was admitted to mental health on an involuntary statusafter ingesting a bottle of shampoo. Patient was brought here by police aftershe eloped numerous times from [facility]. [facility] patient stated she was discharged before [...] [facility] as her place of residence. Patient was [...] female who lives in a supportive housing facility,[facility]. Patient was never graduated from high [...] Neuts (auto) (1.2 - 7.6 x10E3/uL) 5.78 05/06bsolute Lymphs (auto) (1.0 - 3.5 x10E3/uL) 1.93 05/06 005bsolute Monos (auto) (0.1 - 1.0 x10E3/uL) 0.50 05/06bsolute Eos (auto) (0.1 - 0.7 x10E3/uL) 0.04 L 05/06bsolute Basos (auto) (0.0 - 0.1 x10E3/uL) 0.03 05/06 005Nucleated RBC % (auto) (0 %) 0 05/06erologyCOVID-19 (CORDELL) (NEGATIVE) NEGATIVE 05/06 41ToxicologySalicylates (0.0 - 20.0 mg/dL) < 1.7 05/06 51Opiates Screen (NEGATIVE) NEG 05/06 004Methadone Screen (NEGATIVE) NEG 05/06cetaminophen (0 - 30 ug/mL) < 2.0 05/06arbiturate Screen (NEGATIVE) NEG 05/06 0041Phencyclidine Screen (NEGATIVE) NEG 05/06 0041Amphetamines Screen (NEGATIVE) NEG 05/061Benzodiazepines (NEGATIVE) POS H 05/06 0041Cocaine Screen (NEGATIVE) NEG 05/06annabinoids (NEGATIVE) NEG 05/06 004thyl Alcohol (NONE DETECTED g/dL) 05/06 51UrinesUrine Color Y ellow 05/06 41Urine Appearance Turbid 05/06 41Urine pH (5.0 - 8.0) 8.0 05/06 41Ur Specific Randle (1.010 - 1.025) 1.022 05/06 41Urine Protein (Negative) Trace 05/06 41Urine Ketones (NEGATIVE) Negative 05/06 41Urine Blood (NEGATIVE) Negative 05/06 41Urine Nitrite (Negative) Negative 05/06 41Ur Bilirubin Confirm (NEGATIVE) Negative 05/06 41Urine Urobilinogen (0.2 - 1.0 mg/dL) 1.0 05/06 41Urine Leukocytes (Negative) Negative 05/06 41Urine Glucose (NEGATIVE) Negative 05/06 41Urine HCG, Qual (Negative) Negative 05/061Additional NotesPlan:Patient will be placed on a level 3 observation for continued monitoring forsafety as she recently said she has no thoughts of wanting to harm herself andwas able to state she felt safe. Patient will be monitored by staff [facility] the nurses station for the next 6 [...] medicationuse and the medications efficacy. Madelin, the learning and development coordinator will be incontact with [facility] and the [facility] team Assessment/PlanDiagnosis1. Major depressive disorderStatus Chronic2. [...] rce(s) Supporting Document(s) ID Date Data Source [id number] 05/06/2021 01:31:00 AM EDT [facility] [place] Name Value Range Interpretation Code Description Data Stephanie rce(s) Supporting Document(s) ACETAMINOPHEN < 2.0 ug/mL 0-30 [facility] ID Date Data Source [id number] 05/06/2021 01:31:00 AM EDT [facility] [place] Name Value Range Interpretation Code Description Data Stephanie rce(s) Supporting Document(s) SALICYLATE < 1.7 mg/dL 0.0-20.0 N [facility] ID Date Data Source [id number] 05/06/2021 01:31:00 AM EDT [facility] [place] Name Value Range Interpretation Code Description Data Stephanie rce(s) Supporting Document(s) ETOH NONE DETECTED N [facility] NONE DETECTED ID Date Data Source [id number] 05/06/2021 01:31:00 AM [facility] [place] Name Value Range Interpretation Code Description Data Stephanie rce(s) Supporting Document(s) GLU 99 mg/dL 70-110 [facility] Patients taking Sulfasalazine may have f alsely depressedGlucose levels. Patients taking Sulfapyridine may havefalsely elevated Glucose levels. Patients should be drawnfor Glucose before the initial administration of eitherdrug. BUN 13 mg/dL 7-23 [facility] CRE 0.661 mg/dL 0.500-1.300 [facility] GFR > 60 mL/min [facility] CHLORIDE 109 mmol/L 99-110 [facility] NA 139 mmol/L 136-147 [facility] POTASSIUM 3.9 mmol/L 3.5-5.1 [facility] TCO2 25 mmol/L 20-33 [facility] ANION GAP 8.9 10.0-20.0 [facility] CA 9.3 mg/dL 8.3-10.7 [facility] ALKALINE PHOS 110 U/L 45-117 [facility] TP 8.0 g/dL 6.0-7.8 [facility] ALB 4.0 g/dL 3.5-5.0 [facility] ESRD Dialysis patient Albumin reference range: 2.9-4.4 g/dL GL 4.0 g/dL 2.3-3.5 [facility] A/G 1.0 1.0-2.5 [facility] T. BILIRUBIN 0.4 mg/dL 0.1-1.1 [facility] [employer] [place] Total Bilirubin is n ot recommended forpatients undergoing treatment with eltrombopag (Promacta)due to the potential for falsely elevated results. ALTI 58 U/L 6-54 [facility] Patients taking Sulfasalazine and/or Sul fapyridine may havefalsely depressed ALT levels. Patients should be drawn forALT before the initial administration of either drug. AST 32 U/L 6-38 [facility] Patients taking Sulfasalazine and/or Sul fapyridine may havefalsely depressed AST levels. Patients should be drawn forAST before the initial administration of either drug. ID Date Data Source [id number] 05/06/2021 01:10:00 AM EDT [facility] [place] Name Value Range Interpretation Code Description Data Stephanie rce(s) Supporting Document(s) WBC 8.31 x10E3/uL 4.0-10.5 [facility] RBC 4.31 x10E6/uL 4.20-5.40 [facility] Hemoglobin 12.7 g/dL 12.0-16.0 [facility] Hematocrit 38.3 % 37.0-47.0 [facility] MCV 88.9 fL 81.0-99.0 [facility] MCH 29.5 pg 27.0-31.0 [facility] MCHC 33.2 g/dL 32.7-35.6 [facility] RDW 12.5 % 11.5-14.0 [facility] Platelet count 274 x10E3/uL 150-450 N [facility] ital MPV 9.8 fl 6.9-9.5 H [facility] Neutrophils 69.5 % 34-64 H [facility] Lymphocytes 23.2 % 25-45 L [facility] Monocytes 6.0 % 1.7-10.6 [facility] Eosinophils 0.5 % 0.4-7.0 [facility] Basophils 0.4 % 0.1-2.0 [facility] Imm. Gran. 0.4 % 0.1-2.0 [facility] Abs. Neutro. 5.78 x10E3/uL 1.2-7.6 [facility] [place] Abs. Lymph. 1.93 x10E3/uL 1.0-3.5 [facility] Abs. [place]. 0.50 x10E3/uL 0.1-1.0 [facility] Abs. Eosin. 0.04 x10E3/uL 0.1-0.7 [facility] Abs. Baso. 0.03 x10E3/uL 0.0-0.1 [facility] Abs. Imm. Gran. 0.03 x10E3/uL 0.0-0.1 N [facility] spital ANRBC% 0 % 0 [facility] ID Date Data Source [id number] 05/06/2021 12:41:00 AM EDT [facility] Name Value Range Interpretation Code Description Data Stephanie rce(s) Supporting Document(s) LCOVID-19, [facility]LL NEGATIVE [facility] This lab was ordered by [facility] and reported by [facility]. ID Date Data Source [id number] 05/06/2021 01:27:00 AM EDT [facility] Name Value Range Interpretation Code Description Data Stephanie rce(s) Supporting Document(s) PCP VISTA NEG NEGATIVE [facility] MINIMUM LEVEL OF DETECTION IS 25 ng/ml BENZODIAZEPINES POS NEGATIVE [facility] al POSITIVE RESULTS UNCONFIRMEDMINIMUM LEVE L OF DETECTION IS 200 ng/ml COCAINE VISTA NEG NEGATIVE [facility] MINIMUM LEVEL OF DETECTION IS 300 ng/ml AMPHETAMINES NEG NEGATIVE [facility] al MINIMUM LEVEL OF DETECTION IS 1000 ng/ml BARBITURATES NEG NEGATIVE [facility] al CUTOFF CONCENTRATION IS 200 ng/ml CANNABINOIDS NEG NEGATIVE [facility] al CUTOFF CONCENTRATION IS 50 ng/ml METHADONE VISTA NEG NEGATIVE [facility] MINIMUM LEVEL OF DETECTION IS 300 ng/ml OPIATE VISTA NEG NEGATIVE [facility] MINIMUM DETECTION LEVEL IS 300 ng/ml ID Date Data Source [id number] 05/06/2021 01:25:00 AM EDT [facility] Name Value Range Interpretation Code Description Data Stephanie rce(s) Supporting Document(s) COVID-19, CORDELL NEGATIVE NEGATIVE [facility] Methodology: Isothermal Nucleic Acid Amp [...] Emergency Use Authorization. ID Date Data Source [id number] 05/06/2021 01:11:00 AM EDT [facility] [place] Name Value Range Interpretation Code Description Data Stephanie rce(s) Supporting Document(s) HCG QUAL URINE Negative [facility] ID Date Data Source [id number] 05/06/2021 01:11:00 AM EDT [facility] Name Value Range Interpretation Code Description Data Stephanie rce(s) Supporting Document(s) URINE COLOR Yellow [facility] UAPR Turbid [facility] UGLU Negative NEGATIVE [facility] URINE BILIRUBIN [facility] UK[facility] Negative NEGATIVE [facility] USG 1.022 1.010-1.025 [facility] UBLO Negative NEGATIVE [facility] UpH 8.0 5.0-8.0 [facility] UPRO Trace Negative [facility] UUB 1.0 mg/dL 0.2-1.0 [facility] UNIT Negative Negative [facility] ULEU Negative Negative [facility] ID Date Data Source [id number] 05/06/2021 04:51:00 PM EDT [facility] [place] Physician DocumentationClmilton-Naveen Hinkle edical CenterName: Yareli DuvallAge: 20 yrsSex: FemaleDOB: 2000MRN: [id number] Date: 05/06/2021Time: 00:32Account#: [id number] 5BPrmonalisa MD:ED Physician Richie العليposition Summary:05/06/21 13:58Hospitalization OrderedHospitalization [...] 400 mg intramuscular suspension,extended release syringe 400 cwispsb02 days2. ibuprofen 400 mg Oral tablet 1 [...] thoughts of suicide. Megestrol drinking shampooisattempt for xagueqh11:44 Unable to obtain exam due to patient being uncooperative.Vital Signs:00:37 BP 137 / 84; Pulse 84; Resp 16; Temp 97.7; Pulse Ox 99% ; Weight 104.33kg; Height 5 tp2ft. 6 in. ; Pain 0/10;16:31 BP 122 / 83 (auto/); Pulse 77 MON; Resp 18; Pulse Ox 96% ;ef100:37 Body Mass Index 37.12 (104.33 kg, 167.64 cm)tp200:37 Pain Scale: Ulustad6BTG:00:47 Patient medically screened.br06:44 Data reviewed: vital signs, nurses notes, EMS record, old medicalrecords, lab test brresult(s).11:37 ED course: Patient has refused to comply with staff, is verbally abusiveand sedisruptive, and is being physically restrained at this time. She has gkfpywkw67 mg ofIM Geodon and will get 2 mg of IM Ativan..04/2600:38 Order name: Acetaminophen Level; Complete Time: 10:31il612/2610:32 Interpretation: Within normal limits.se04/2600:38 Order name: CBC with diff; Complete Time: 10:65pl1890:32 Interpretation: Within normal limits.:38 Order name: CMP; Complete Time: 10:63iw676/2610:33 Interpretation: Normal except: TP 8.0; ALTI 58.:38 Order name: COVID-19 PROFILE+LAB; Complete Time: 10:73sm229/2610:33 Interpretation: Within normal limits.se04/2600:38 Order name: ETOH; Complete Time: 10:48tc523/2610:33 Interpretation: Within normal limits.:38 Order name: Gqlxtvwch105/2600:38 Order name: Salicylate Level; Complete Time: 10:91gl015/2610:33 Interpretation: Within normal limits.:38 Order name: Triage - Drug Screen; Complete Time: 10:65ua022/2610:33 Interpretation: Normal except: BENZODIAZEPINES POS.se04/2600:38 Order name: UA; Complete Time: 10:97je421/2610:33 Interpretation: Within normal limits.:38 Order name: Urine HCG Qualitative; Complete Time: 10:20kn8902610:33 Interpretation: Within normal limits.:38 Order name: Diet - Mental Health Tray (call dietary); Complete Time:00:42 tp210:38 Order name: Belongings List; Complete Time: 13:09en101/2600:38 Order name: Document Weight and Height for BMI; Complete Time: 00:74ba705/2600:38 Order name: Mental Health Evaluation; Complete Time: 13:10qe760/2600:38 Order name: Mental Health Level 3; Complete Time: 13:20qx396/2600:38 Order name: VS q shift; Complete Time: 00:11tl9Kberkpshn Medications:09:23 Drug: Ondansetron 8 mg Route: PO;jl11:41 Fol low up: Response: Nausea is dnlawyecerg620:29 Drug: Geodon 20 mg Route: IM; Site: left deltoid;ef113:48 Follow up: Response: Anxiety ynnmxofjcsr455:38 Drug: LORazepam 2 mg Route: IM; Site: right vastus lateralis;ef113:48 Follow up: Response: Anxiety ataiqvkgsuv1Zgbqiffkcl:Dispatcher [employer] Kylie Fishman MD MD seHilborne, Erica, RN RN nr9SeBnldiBertha Collier RN RN jlPutney, Taylor, RN RN gq8TqdbpkzZeeshan browne MD MD br Name Value Range Interpretation Code Description Data Stephanie rce(s) Supporting Document(s) ID Date Data Source [id number] 05/06/2021 04:51:00 PM EDT [facility] [place] [facility] terName: Yareli DuvallAge: 20 yrsSex: FemaleDOB: 2000MRN: [id number] Date: 05/06/2021Time: 00:32Account#: [id number] 5BPrandrewte MD:Diagnosis: Major depressive disorder, recurrent, unspecified;Borderlinepersonality disorderPresentation:04/2600:34 Presenting complaint: Patient states: discharged from mental health floor05/05/21. ef2Yqfch a bottle of shampoo. Went to [facility], eloped, police brought pthere. Ptstates she was not [...] or suspected COVID-19 case? no Do youlive kalye setting where a large of amount of people live, such as [facility], [facility], etc? no. Have you traveled to a location with widespread or ongoingCOVID-19community spread or outside of [facility]? no Have you traveled internationallyor hadcontact with someone that has traveled and has been ill in the past 3 weeks? noHaveyou received the COVID vaccine? No. Communicable Disease Screen: Negative forfever>/=100 degrees Fahrenheit. Communicable disease screen is negative. CommunicationSpeaksEnglish? Yes, is preferred language.00:34 Acuity: Triage 7wm304:34 Acuity Assignment: Triage 0sh043:34 Method Of Arrival: Csitmukx3Fwwidt Assessment:00:36 General: Appears in no apparent distress, Behavior is appropri ate forage, cooperative. rg0Bjpnck Screening: (1)Signs/symptoms infection No. Pain: Denies pain. [...] 400 mg intramuscular suspension,extended release syringe 400 irydjst03 days2. ibuprofen 400 mg Oral tablet 1 [...] threats or abuse. Denies injuries from another.Nutritional ac6xeewcixyy: No deficits noted. Offer of HIV testing: patient was previouslyofferedscreening. Fall Risk None identified.Assessment:00:42 Reassessment: No changes from previously documented assessment.tp211:05 General: pt repeatedly walking out of unit to doorway. does not walk outand easily klpredirected back in. PSA aware.11:29 Reassessment: attempted to elope; uncooperative and attempting to assaultstaff; code wr9itiiub called.11:39 Reassessment: screaming continuing to assault staff; placed in restrains.ef112:30 Reassessment: Patient states feeling better. Patient states symptoms haveimproved. klpreleased from restraints and walked to BR without incident.13:47 Reassessment: Patient appears in no apparent distress at this time.ui3Kfoyhugojron:09:59 SAFE Act Report Not Completed. Intervention: Observation Level 3. Mentalhealth [facility] initiated at 09:59.10:46 Referral Information: Evaluation referral is generated by a policeagency: [facility]. The patient was referred for evaluation because Pt states she drank abottle ofshampoo last night and that she was brought to [facility] where she elopedand wasbrought here on a pickup order.11:02 Subjective: The patients chief complaint is Pt presents to the ED withState Police on nha pickup order due to the [facility], pt states she currently lives at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 monitoring for continued safeand appropriate behaviors in order to ensure her safety.DATE SIGNED: 04/26/21 Electronically SignedTIME SIGNED: 1221 DYL[address] RIBEIRO Name Value Range Interpretation Code Description Data Stephanie rce(s) Supporting Document(s) ID Date Data Source [id number] 04/26/2021 01:09:00 AM EDT [facility] Name Value Range Interpretation Code Description Data Stephanie rce(s) Supporting Document(s) PCP VISTA NEG NEGATIVE [facility] MINIMUM LEVEL OF DETECTION IS 25 ng/ml BENZODIAZEPINES NEG NEGATIVE [facility] MINIMUM LEVEL OF DETECTION IS 200 ng/ml COCAINE VISTA NEG NEGATIVE [facility] MINIMUM LEVEL OF DETECTION IS 300 ng/ml AMPHETAMINES NEG NEGATIVE [facility] MINIMUM LEVEL OF DETECTION IS 1000 ng/ml BARBITURATES NEG NEGATIVE [facility] CUTOFF CONCENTRATION IS 200 ng/ml CANNABINOIDS NEG NEGATIVE [facility] CUTOFF CONCENTRATION IS 50 ng/ml METHADONE VISTA NEG NEGATIVE [facility] al MINIMUM LEVEL OF DETECTION IS 300 ng/ml OPIATE VISTA NEG NEGATIVE [facility] MINIMUM DETECTION LEVEL IS 300 ng/ml ID Date Data Source [id number] 04/26/2021 12:51:00 AM EDT [facility] Name Value Range Interpretation Code Description Data Stephanie rce(s) Supporting Document(s) HCG QUAL URINE Negative Negative [facility] ID Date Data Source [id number] 04/26/2021 12:51:00 AM EDT [facility] Name Value Range Interpretation Code Description Data Stephanie rce(s) Supporting Document(s) URINE COLOR Yellow [facility] UAPR Cloudy [facility] UGLU Negative NEGATIVE [facility] URINE BILIRUBIN Negative [facility]IVE [facility] UKET Negative NEGATIVE [facility] USG 1.027 1.010-1.025 [facility] UBLO 2+ NEGATIVE [facility] UpH 6.0 5.0-8.0 [facility] UPRO Trace Negative [facility] UUB 1.0 mg/dL 0.2-1.0 [facility] UNIT Negative Negative [facility] ULEU Trace Negative [facility] ID Date Data Source [id number] 04/26/2021 12:51:00 AM EDT [facility] Name Value Range Interpretation Code Description Data Stephanie rce(s) Supporting Document(s) URINE RBC 3-5 RBCs/HPF NONE SEEN [facility] URINE WBC 3-5 WBCs/HPF NONE SEEN [facility] URINE BACTERIA Few NONE SEEN [facility] l URINE EPI. Moderate NONE SEEN [facility] UMUCUS Few NONE SEEN [facility] URINE CRYSTAL FEW AMORPHOUS NONE SEEN [facility] ital ID Date Data Source [id number] 04/26/2021 12:22:00 AM EDT [facility] Name Value Range Interpretation Code Description Data Stephanie rce(s) Supporting Document(s) SALICYLATE < 1.7 mg/dL 0.0-20.0 [facility] ID Date Data Source [id number] 04/26/2021 12:22:00 AM EDT [facility] Name Value Range Interpretation Code Description Data Stephanie rce(s) Supporting Document(s) ACETAMINOPHEN < 2.0 ug/mL 0-30 [facility] ID Date Data Source [id number] 04/26/2021 12:22:00 AM EDT [facility] Name Value Range Interpretation Code Description Data Stephanie rce(s) Supporting Document(s) ETOH NONE DETECTED [facility] NONE DETECTED ID Date Data Source [id number] 04/26/2021 12:22:00 AM EDT [facility] Name Value Range Interpretation Code Description Data Stephanie rce(s) Supporting Document(s) GLU 89 mg/dL 70-110 [facility] Patients taking Sulfasalazine may have f alsely depressedGlucose levels. Patients taking Sulfapyridine may havefalsely elevated Glucose levels. Patients should be drawnfor Glucose before the initial administration of eitherdrug. BUN 16 mg/dL 7-23 [facility] CRE 0.660 mg/dL 0.500-1.300 [facility] GFR > 60 mL/min [facility] CHLORIDE 107 mmol/L 99-110 [facility] NA 138 mmol/L 136-147 [facility] POTASSIUM 4.0 mmol/L 3.5-5.1 [facility] TCO2 25 mmol/L 20-33 [facility] ANION GAP 10.0 10.0-20.0 [facility] CA 9.5 mg/dL 8.3-10.7 [facility] ALKALINE PHOS 118 U/L 45-117 H [facility] TP 8.7 g/dL 6.0-7.8 H [facility] ALB 4.0 g/dL 3.5-5.0 [facility] ESRD Dialysis patient Albumin reference range: 2.9-4.4 g/dL GL 4.7 g/dL 2.3-3.5 H [facility] A/G 0.9 1.0-2.5 L [facility] T. BILIRUBIN 0.3 mg/dL 0.1-1.1 [facility] The [employer] [place] Total Bilirubin is n ot recommended forpatients undergoing treatment with eltrombopag (Promacta)due to the potential for falsely elevated results. ALTI 64 U/L 6-54 H [facility] Patients taking Sulfasalazine and/or Sul fapyridine may havefalsely depressed ALT levels. Patients should be drawn forALT before the initial administration of either drug. AST 38 U/L 6-38 [facility] Patients taking Sulfasalazine and/or Sul fapyridine may havefalsely depressed AST levels. Patients should be drawn forAST before the initial administration of either drug. ID Date Data Source [id number] 04/26/2021 12:07:00 AM EDT [facility] Name Value Range Interpretation Code Description Data Stephanie rce(s) Supporting Document(s) WBC 9.84 x10E3/uL 4.0-10.5 [facility] RBC 4.48 x10E6/uL 4.20-5.40 [facility] Hemoglobin 13.0 g/dL 12.0-16.0 [facility] Hematocrit 40.4 % 37.0-47.0 [facility] MCV 90.2 fL 81.0-99.0 [facility] MCH 29.0 pg 27.0-31.0 [facility] MCHC 32.2 g/dL 32.7-35.6 [facility] RDW 12.3 % 11.5-14.0 [facility] Platelet count 291 x10E3/uL 150-450 [facility] ital MPV 10.1 fl 6.9-9.5 H [facility] Neutrophils 59.9 % 34-64 [facility] Lymphocytes 31.9 % 25-45 [facility] Monocytes 6.6 % 1.7-10.6 [facility] Eosinophils 1.0 % 0.4-7.0 [facility] Basophils 0.2 % 0.1-2.0 [facility] Imm. Gran. 0.4 % 0.1-2.0 [facility] Abs. Neutro. 5.89 x10E3/uL 1.2-7.6 [facility] [place] Abs. Lymph. 3.14 x10E3/uL 1.0-3.5 [facility] Abs. [place]. 0.65 x10E3/uL 0.1-1.0 [facility] Abs. Eosin. 0.10 x10E3/uL 0.1-0.7 [facility] Abs. Baso. 0.02 x10E3/uL 0.0-0.1 [facility] Abs. Imm. Gran. 0.04 x10E3/uL 0.0-0.1 [facility] ANRBC% 0 % 0 [facility] ID Date Data Source [id number] 04/26/2021 05:06:00 AM EDT [facility] [place] Physician DocumentationClaxton-Naveen Hinkle edical CenterName: Yareli DuvallAge: 20 yrsSex: FemaleDOB: 2000MRN: [id number] Date: 04/25/2021Time: 23:15Account#: [id number] MD: NONE, - Per PatientED Physician Ab Pires Summary:04/26/21 03:21Hospitalization OrderedHospitalization Status: Inpatient Hutwccufawn0Lpacewkt: Chava OneillLocation: Mental Health Ymodmr7Rtgqxnmzd: Mtijicwm5Jnjvokg: an ongoing scifaswpi2Quxeedhs: are pxbgyrxtcok1Qqlz Assignment:os8Vgsudxsjm- Schizoaffective disorder, michboaglqvyt0Eidpvtznzt Information- Admission Type: Inpatient Status.cz8Urdtl:- Medication Reconciliationna1- SBARna1- Medication Reconciliation Form - 2nd Copyna1- Psych. CYZCko7BMA:04/1603:21 This 20 yrs old White Female presents [...] 400 mg intramuscular suspension,extended release syringe 400 qwsvcem86 days3. ibuprofen 400 mg Oral tablet 1 [...] for drug dependence, alcohol de pendence, auditoryhallucinations, zm0azjeln hallucinations, homicidal ideation. All other systems are negative.Exam:03:22 Head/Face: Normocephalic, atraumatic. Eyes: Pupils equal round andreactive to light, xg7tjcau-ecrmnl motions intact. Lids and lashes normal. Conjunctiva [...] Resp 18; Temp 97.1; Pulse Ox 97% ;jw511523:21 Body Mass Index 37.12 (104.33 kg, 167.64 cm)jw5MDM:01:09 Patient medically screened.na101:11 Data reviewed: vital signs, nurses notes, lab test result(s).na103:25 ED course: IMPRESSION: COPD EXCEREBR ATION & CHF, RESP. FAILURE WITHHYPOXEMIA & hm4MATZVBWWUGB. PT. HAD 500 ML. S/P LASIX 40 MG IV, ALSO RECEIVED ALBUTEROL NEB.TEMPERER &DUONEB'S. IN ED, SOLUMDEROL 80 MG IV, HE IS FEELING BETTER, IN MILD RESP.DISTRESS.PLAN TO ADMIT TO HOSPITALIST SERVICE--DR. SERRANO. PT. AGREABLE WITHADMISSION..04/1523:33 Order name: Acetaminophen Level; Complete Time: ::33 Order name: C BC with diff; Complete Time: :: Order name: CMP; Complete Time: ::33 Order name: COVID-19 PROFILE+LAB; Complete Time: :: Order name: ETOH; Complete Time: ::33 Order name: Crxkavcgr063/1523:33 Order name: Salicylate Level; Complete Time: 01::33 Order name: Triage - Drug Screen; Complete Time: 01::33 Order name: UA; Complete Time: 01::33 Order name: Urine HCG Qualitative; Complete Time: 01::33 Order name: Diet - Mental Health Tray (call dietary); Complete Time:02::33 Order name: Belongings Yaxdyy189:33 Order name: Document Weight and Height for BMI; Complete Time: 02::33 Order name: Mental Health Evaluation; Complete Time: 02::33 Order name: Mental Health Level 3; Complete Time: 02::33 Order name: VS q shift; Complete Time: 02:1:12 Order name: Medically Cleared for Eval by-Psychosocial, Theater Technician (.PSA);Complete Time: :42Dispensed Medications:No medications were administeredSignatures:Dispatcher [employer] Ramón Beverly MD MD hh6YlmqiFortunato humphrey RN RN jw5 Name Value Range Interpretation Code Description Data Stephanie rce(s) Supporting Document(s) ID Date Data Source [id number] 04/26/2021 05:06:00 AM EDT [facility] Nurse's NotesCla[facility] Tootie terName: Yareli DuvallAge: 20 yrsSex: FemaleDOB: 2000MRN: [id number] Date: 04/25/2021Time: 23:15Account#: [id number] U7Yibgclt MD: NONE, - Per PatientDiagnosis: Schizoaffective disorder, unspecifiedPresentation:04/1523:17 Presenting complaint: Patient brought by [employer] officer [facility] gt5xvekylzpjk due to suicidal threats brought on by [...] a large of amount ofpeoplelive, such as [place] [facility] [place], family care, m[facility], etc? no. [facility] you [facility] or ongoing [facility]-19 [facility] spread or outside of [facility]? noHaveyou traveled internationally or had contact with someone that has traveled andhas beenill in the past 3 weeks? no Have you received the COVID vaccine? Yes.CommunicableDisease Screen: Negative for fever>/= 100 degrees Fahrenheit. Communicablediseasescreen is negative. (-) rash or unusual skin lesion (-) travel/contact withtraveler(-) respiratory symptoms. Communication Speaks Hungarian? Yes, is preferredlanguage.23:17 Acuity: Triage 9ao834:17 Method Of Arrival: Vlnpueuk115:19 Acuity Assignment: Triage 3fv8Abnrvw Assessment:23:21 General: Appears in no apparent distress, Behavior is anxious,cooperative. Sepsis iu7Avextwioe: (1)Signs/symptoms infection No. Pain: Denies pain. PSS-3 [...] 400 mg intramuscular suspension,extended release syringe 400 bldgrra43 days3. ibuprofen 400 mg Oral tablet 1 [...] threats or abuse. Denies injuries from another.Nutritional fs7gpujzvlkp: No deficits noted. Offer of HIV testing: patient was previouslyofferedscreening. Fall Risk None identified.Assessment:00:59 Reassessment: see triage.jw501:05 Reassessment: Patient went to bathroom then walked out the ER doors andonto the ER pb2ezqq refused to come inside, [employer] called and patient walked back in with patientplacedin restraints as per MD order without incident Patient remained in site at alltimes..02:00 Reassessment: Patient appears in no apparent distress at this time.Patient calm and xz9pybijezxafn at this time.02:15 Reassessment: Patient removed from restraints without incident.jw504:32 Reassessment: Patient appears in no apparent distress at this time.xj5Rxmzewwzfzcs:00:54 SAFE Act Report Not Completed. Intervention: Observation [...] removed. Pt reports that her aunt in [place] just .Shestarted crying saying that she is suicidal and wants help but feels no one willhelpher. Pt reports that she has the plans to either overdose or hang herself. Ptreportsthat she feels that she needs emt intermediate treatment because she feels nothingelse isworking. Pt has a long history of being inpatient for mental health at multipledifferwhite hospital facilities. Pt was last inpatient at [facility] was April 09, 2021. Pthas adiagnosis of Anxiety, Depression, Borderline Personality Disorder. Pt denies HIandhallucinations. Delusions are denied, Hallucinations are denied. Patient's moodisdepressed, Having thoughts of suicide. Plan for suicide is overdose or hangself.01:05 Narrative PSA spoke to Zohra at [facility] [phone] who states that the pttells them xx4ptki she is suicidal every day and she does not understand what is going on.She statesthat this is an every day thing with going to a hospital and gets gettingdischarged.She states that they are lost of what to do at this point and feel [facility].01:13 Patient reports history of anxiety, Bipolar Disorder, Depression, self-mutilation, co9Fjibl: BPD. Mental Health Admissions: multiple at multiple facilities last [facility] was04/09/21 Current Outpatient Mental Health Ser vices: Therapist / Agency:Grayson/Zev at [facility]. Living Environment: Family / Home Support: fair Thepatientcurrently lives in a [facility] apartment. The patient is single. Detox [...] took it from pt. Shewent to the vh7ugevlgld then left the ED on the ramp, refusing to come inside. [employer] was called.Pt wasput in 4 point restraints.02:40 Transfer plan is communicated to Zohra at [facility]. Consultation: Psych MDinformed of ih6usavqro's status at 02:00, ED MD notified of patients status at 02:40, MentalHealth ERRN made aware of pt status at 02:15. Disposition: Medically cleared fordisposition byDr Levy. Psychiatric Consult is performed by phone with Dr Dylan Clark NPThepatient is admitted to [facility] M[facility] Patient report is given to Comfort AMAYA. LegalStatus:Patient's legal status will be Emergency: 9.39. Commitment papers arecompleted. pt hasbeen provided with the copy of her legal status and rights. DSM-V DX [place] Idiagnosis:Schizoaffective D/O. Insurance Pre-Certification: Not Required. [facility] AdmissionCriteria: The patient is experiencing suicidal ideation. The patient requirescontinuous observation and/or control to protect self, others or property. Thepatient's care requires a multi-modal treatment plan under close supervisionandcoordination due to the complexity and severity of the patient's symptoms. Thepatientrequires administration and monitoring of psychoactive medications by skilledmedicalproviders due to the side effects of the psychoactive medications orsignificant dosageadjustments. Awaiting transfer to [facility]. Transition of care to pt will beescorted byPSA and security. The patient is not a tire servicer or dependent.ColumbiaSuicide Severity Rating Scale: Suicidal Ideation Rating 5; Intensity ofIdeationsRating 25; Suicidal Behavior Rating 0.Psych:04/1523:32 Subjective: Patient's mood is sad, Delusions are denied, Hallucinationsare denied pv4Jifsbm thoughts of suicide. Plan for suicide is hang self or OD. Objective:Patient iscooperative, Speech is normal, Affect is appropriate. Interventions: Removedpersonalitems and placed in bag. Patient placed in hospital gown. Searched person fordangerousitems. Observation Level Level 3 Sitter needed. Provider notified. [facility] nurse notified. Fortunato Mark RN Level 3 order placed.Vital Signs:23:21 Pulse 72; Resp 18; Temp 97.8; Pulse Ox 97% ; Weight 104.33 kg; Height 5ft. 6 in. ; jw51/1605:05 BP 128 / 78; Pulse 72; Resp 18; Temp 97.1; Pulse Ox 97% ;jw511523:21 Body Mass Index 37.12 (104.33 kg, 167.64 cm)jw5ED Course:04/1523:16 Patient arrived in ED.jw523:17 NONE, - Per Patient is Private Physician.jw523:19 Triage completed.jw51/1600:59 Fortunato Mark, RN is Primary Nurse.jw501:00 Patient has correct armband on for positive identification. Placed ingown. Sitter at lj5orhlirs.01:00 No Physician assisted procedures completed.jw501:09 Ramón Levy MD is Attending Physician.na102:00 Sitter at bedside.jw503:20 Brooklyn Oneill MD is Hospitalizing Provider.na104:33 Sitter at bedside.dp9Zqsydryokmnn Medications:No medications were administeredOutcome:03:21 Decision to Hospitalize by Provider.na105:05 Disposition: Admitted to Psych with chart.jw505:05 Condition: apscmmtds12:05 Instructed on need for admit.05:05 Discharge Assessment: Patient verbalized understanding of dispositioninstructions.Patient has no functional deficits.05:06 Patient left the ED.wc8Vvbaitgzwy:Ramón Levy MD MD xa2AeyzzFortunato humphrey, RN RN fa2XajcwqklUsha Adams tu7Teexbgmluxi: (The following items were deleted from the chart)01:01 00:54 Subjective: The patients chief complaint is Pt presents to the EDas a walk in ge5dtuz [employer] for suicidal ideations. Pt had left ED and went on ramp. OPD wascalled tohelp talk to the pt. Pt did agree to come back inside. Pt took her sheet andwrapped itaround her neck. Sheet was removed. Pt reports that her aunt in [place] justpassedaway. She started crying saying that she is suicidal and wants help but feelsno onewill help her. Pt reports that she has the plans to either overdose or hangherself. Ptreports that she feels that she needs emt intermediate treatment because she feelsnothingelse is wo rking. Pt has a long history of being inpatient for mental health atmultipledexcel[facility] facilities. Pt was last inpatient at [facility] . sm802:44 01:15 Narrative Pt walked to bathroom then left ED on ramp. [place]. [place] [id number] Name Value Range Interpretation Code Description Data Stephanie rce(s) Supporting Document(s) ID Date Data Source [id number] 04/25/2021 11:05:00 PM EDT [facility] Name Value Range Interpretation Code Description Data Stephanie rce(s) Supporting Document(s) LCOVID-19, CORDELL NEGATIVE [facility] This lab was ordered by [facility] and reported by [facility]. ID Date Data Source [id number] 04/26/2021 12:17:00 AM EDT [facility] Name Value Range Interpretation Code Description Data Stephanie rce(s) Supporting Document(s) COVID-19, OCRDELL NEGATIVE NEGATIVE N [facility] Methodology: Isothermal Nucleic Acid Amp [...] Emergency Use Authorization. ID Date Data Source [id number] 04/24/2021 03:18:28 PM [facility]T [facility]FORMATIONPatient MRN Name Date of Age Gend*PT [id number] Yareli Hatch 00 20 years M CPEPPT Location Admission Date/Time Visit ID Attending ProviderNONE 04/24/21 1315 --- Laureen Luis MD([id number]) EPI ID CSN Admitting Provider [id number] Attestation signed by Laureen Luis MD at 04/24/2021 3:18 PMInitial time of commencing Psychiatrist iwtw-wt-ymgy encounter with patient:04/24/21 1440 : Laureen Luis MDI have examined the patient, pnfw-yw-harp, and have personally participated inperforming a psychiatric [...] treatment plan with the patient and team [facility] PSYCHIATRIC ASSESSMENTPatient Name: Yareli Galindo at [facility]: 04/24/21 1305Psych LENS MATCHER First Contact: Yes (04/24/21 1331 : Aysha Valles NP)Chief ComplaintChief ComplaintPatient presents with Psychiatric Evaluation Pt's name is Daisy, he/him pronouns. Transferred via EMS from [facility] presenting for SI w/o plan. Lives in transitional living. Was [facility] ago. Presents often to [place] for SI per ED staff.Current StressorsCurrent Stressors: Pyschiatric SymptomsHistory of Present IllnessThe patient is a 20-year-old transgender individual (biological female,identifies as male gender, prefers he/him pronouns, preferred name "Daisy"). Thepatient was transferred to [facility] from [facility] ED in [facility] to reports of vague suicidal ideation/passive [...] back to the ER until they place [facility] an new [place]". Thus, these "suicidal statements" appear to be made huyen conditional basis if new housing is secured. Patient is fully connected withoutpatient mental health treatment providers, and an AOT order in [facility] (AOT coordinator is Laureen Alarcon ([phone]) and egg caser Taye ([phone]). Patient also has been [facility], Mr. Grayson Farley. Has a psychiatricprescriber but patient cannot recall the prescribers name, reports compliancewith medication. Patient resides in a supervised housing program, staffadministers medications at scheduled intervals. Patient denies use of illicitdrugs and does not drink alcohol (UDS obtained at [facility] EDn egative). Patient does add that there is another stressor of pending legalcharges from reportedly assaulting a nurse, resulting in harassment charge, [facility]. Patient has been calm and cooperative at [facility],exhibits strong features of personality disorder with [...] today, [facility] as he does not currently meet criteria forinpatient psychiatric hospitalization. Patient expressed understanding of thisthough tells me that he will likely represent to another ED (not for any acuteproblem, cites housing as primary stressor). Social work consult has beenordered, case discussed with CPEP team including RN, social media marketing specialist and .Treatment plan goals to be addressed and resolved with social media marketing specialist, see notes.Addendum: I spoke with patient's AOT coordinator Ms. Drewsey Dorian. Susanxplains that patient is a former [facility] resident, now she is a sortof [facility] resident as she lives in this transitional living facilitywith 24/7 staff in this [facility]. [facility]en [facility]. [facility] [place]) [facility] [place] Laureen is aware that Kaiden orland is [facility], [place] states that this is fine if the respite facility is [facility], Medicaid transportation will bring her back to her communityresidence in [place] when needed. Ms. Alarcon would like to beupdated when a final disposition is made, she can be reached at [phone].Patient InfoHistory provided by: patient, medical recordsLanguage employment programs analyst used?: NoHPI: Mental Health ProblemPresenting Symptoms: anxiety (Made vague suicidal statements conditional on ifshe is discharged back to her community residence or not, states she would notbe suicidal if she stays in the hospital or goes to a respite facility, no planor intent to harm self or others, no psychosis)Patient accompanied by: (Sent from [facility] ED)Degree of incapacity (severity) : mildTiming: rareProgression: improvingChronicity: chronicContext : Current interpersonal stressorTreatment compliance: all of the timeRelieved by: antipsychotics, mood stabilizersIneffective Treatments: none triedAssociated symptoms: irritabilityRisk factors: (borderline personality disorder)Care Coordination/CollateralObtained, see above.HistoryPast Psychiatric HistoryOutside Treatment HistoryTreatment History Location Date of Last Tx Type of Tx Tx Reason/Dx Tx Length of Stay Tx helpful?Drug/Alcohol Rehab? Records Requested? Comments [facility] March 2019 Inpatient Suicidal thoughts 24 hours No [facility] 2017 Inpatient Suicidal thoughts 1 year [facility] 2008 Inpatient SI a few months [facility] [...] Memory: IntactInsight: GoodJudgment: Good (Adequate)Orientation: Appropriately Oriented g4Ltkfuxiy Toward Examiner: CooperativeAssociations: No loosening evidentFund of [...] end yourlife)? 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 reported to window cleaner that she "drank some mouthwash" 3weeks ago [...] to the hospital because he dislikes his [place], wants usto get a new [place] facility for him, future and goal oriented, no [...] beaddressed and resolved with social media marketing specialist, see notesPlan/Assessment #2: No medication changes, c ontinue home medication regimen asprescribedPlan/Assessment #3: Chart reviewed, outpatient treatment team to be contacted byEP social media marketing specialist (social work consult ordered)General Treatment Plan - GOAL: The patient will have stabilization of presentingsymptoms in order to progress towards discharge from [facility] and have identifiedthe resources available until outpatient follow up.OBJECTIVE: The patient will be assisted with support resources post discharge:While at [facility], the RN or packing line worker will have a one on one conversation withthe patient to verbally identify their individual supports post discharge.,While at [facility], the RN or Electrical Designer will have a one on one conversation withthe patient to verbally identify whom to contact for collateral information andobtain patient consent in writing., While at [facility], the RN or Electrical Designer willhave a one on one conversation with the patient to verbally identify what followup resources will be most beneficial to the patient., While at [facility], the RN orSocial Worker will have a one on one conversation with the patient to verballyidentify any of their perceived and/or actual barriers to post discharge care.,While at [facility], the RN or Electrical Designer will have a one on one conversation withthe patient to verbally explain the Mobile Crisis Outreach Team and encouragepatient to follow up with an appointment.Anxiety Treatment Plan - GOAL: The patient will have stabilization ofpresenting symptoms in order to progress towards discharge from [facility] and haveidentified the resources available until outpatient follow up.OBJECTIVE: The patient will have reduced overall frequency, intensity, andduration of anxiety so that activities of daily living are not impaired while atCP.: While at [facility], the RN or packing line worker will have a one on oneconversation with the patient to verbally identify their triggers for anxiety.,While at [facility], the RN or Electrical Designer will have a one on one conversation [...] No changes [] No side effectsBilling Code: 21602Kgggzuahmvejth signed byLonnie Villegas Bqooqhiknvzy44/14/21 1459Lonnie Villegas Opaviaafmbqg81/14/21 1500 Name Value Range Interpretation Code Description Data Stephanie rce(s) Supporting Document(s) ID Date Data Source [id number] 04/23/2021 10:55:00 PM EDT [facility] Name Value Range Interpretation Code Description Data Stephanie rce(s) Supporting Document(s) Respiratory specimen severe acute respir atory syndrome coronavirus 2 (SARS-CoV-2) RNA Negative (qualifier value) [facility] This lab was ordered by [facility] and reported by . ID Date Data Source [id number] 04/23/2021 11:18:00 PM EDT [facility] Name Value Range Interpretation Code Description Data Stephanie rce(s) Supporting Document(s) SARS-CoV-2 RNA Negative Normal (applies to non-numeric r esults) [facility] Negative results should be treated as [...] Certificate of Accreditation. Factsheets for healthcare providers: https://www.fda.gov/media/101256/download Factsheets for patients: https://www.fda.gov/media/770927/download The ID NOW Instrument is a rapid molecular in vitro diagnostic test utilizing an isothermal nucleic acid amplification technology intended for the qualitative detection of nucleic acid from the SARS-CoV-2 viral RNA. THIS IS A STATE REPORTABLE COMMUNICABLE DISEASE. Manual entry verified by Megan Murphy 04/23/21 2317 ID Date Data Source [id number] 04/23/2021 10:16:00 PM EDT [facility] Name Value Range Interpretation Code Description Data Stephanie rce(s) Supporting Document(s) Troponin I 0.000-0.056 Normal (applies to non-numeric resu lts) [facility] ID Date Data Source [id number] 04/23/2021 10:16:00 PM EDT [facility] Name Value Range Interpretation Code Description Data Stephanie rce(s) Supporting Document(s) Sodium 141 mmol/L 136-145 Normal (applies to non-numeric resul ts) [facility] Potassium 3.5-5.1 Normal (applies to non-numeric resul ts) [facility] Chloride 106 mmol/L 98-107 Normal (applies to non-numeric resul ts) [facility] Carbon Dioxide CO2 21-32 Normal (applies to non-numer ic results) [facility] Anion Gap 5.0-16.0 Normal (applies to non-numeric resul ts) [facility] BUN 18 mg/dL 7-18 Normal (applies to non-numeric results) [facility] Creatinine,Serum 0.7-1.2 Normal (applies to non-numeric results) [facility] GFR >60 Normal (applies to non-numeric results) [facility] Glucose Level 108 mg/dL 60-99 Above high normal [facility] Reference range is only applicable when patient is fasting Note the following drug interference: Sulfasalazine Sulfapyridine Can see falsely depressed Can see falsely elevated result with up to 17% results with up to 11% decrease in measurement increase in measurement Recommend patients be collected for this test prior to administration of either drug. Calcium 8.5-10.1 Normal (applies to non-numeric resul ts) [facility] Bilirubin,Total 0.1-1.9 Normal (applies to non-numeric results) [facility] SGOT(AST) 34 U/L 15-37 Normal (applies to non-numeric resul ts) [facility] Note the following drug interference: Sulfasalazine Sulfapyridine Can see falsely depressed Can see falsely elevated result with up to 10% results with up to 10% decrease in measurement increase in measurement Recommend patients be collected for this test prior to administration of either drug. SGPT(ALT) 57 U/L 12-78 Normal (applies to non-numeric resul ts) [facility] Note the following drug interference: Sulfasalazine Sulfapyridine Can see falsely depressed Can see falsely elevated result with up to 29% results with up to 10% decrease in measurement increase in measurement Recommend patients be collected for this test prior to administration of either drug. Alkaline Phosphatase 125 U/L 38-126 Normal (applies to non-num deena results) [facility] can increase Alkaline Phosp le vels up to 2 times the normal adult value. Normal values for children and adolescents are 2 to 3 times the normal adult value. Total Protein 6.0-8.2 Normal (applies to non-numeric re sults) [facility] Albumin Level 3.4-5.0 Normal (applies to non-numeric re sults) [facility] ID Date Data Source [id number] 04/23/2021 10:16:00 PM T [facility] Value Range Interpretation Code Description Data Stephanie rce(s) Supporting Document(s) Magnesium 1.8-2.4 Normal (applies to non-numeric resul ts) [facility] ID Date Data Source [id number] 04/23/2021 10:16:00 PM T [facility] Name Value Range Interpretation Code Description Data Stephanie rce(s) Supporting Document(s) Salicylate 2.8-20.0 Below low normal [facility] ID Date Data Source [id number] 04/23/2021 10:16:00 PM [facility] Value Range Interpretation Code Description Data Stephanie rce(s) Supporting Document(s) Acetaminophen 10.0-30.0 Below low normal [facility] ID Date Data Source [id number] 04/23/2021 10:13:00 PM [facility] Value Range Interpretation Code Description Data Stephanie rce(s) Supporting Document(s) Ethanol Less than 10.0 Normal (applies to non-numeric r esults) [facility] ID Date Data Source [id number] 04/23/2021 09:42:00 PM [facility] Value Range Interpretation Code Description Data Stephanie rce(s) Supporting Document(s) White Blood Count 3.5-10.5 Normal (applies to non-numeri c results) [facility] Red Blood Count 3.90-5.00 Normal (applies to non-numeric results) [facility] Hemoglobin 12.0-15.5 Normal (applies to non-numeric resul ts) [facility] Hematocrit 34.9-44.5 Normal (applies to non-numeric resul ts) [facility] Mean Corpuscular Volume 81.2-95.1 Normal (applies to non- numeric results) [facility] Mean Corpuscular Hgb 25.6-32.2 Normal (applies to non-num deena results) [facility] Mean Corpuscular Hgb Conc 32.0-36.0 Normal (applies to no n-numeric results) [facility] Red Cell Distribution Width 11.9-15.5 Normal (appli es to non-numeric results) [facility] Platelet Count 288 x10 3/uL 150-450 Normal (applies to non-numeric results) [facility] Mean Platelet Volume 9.4-12.4 Normal (applies to non-num deena results) [facility] Neutrophils% (Auto) 31.0-71.0 Normal (applies to non-nume frank results) [facility] Lymphocytes% (Auto) 20.0-55.0 Normal (applies to non-nume frank results) [facility] Monocytes% (Auto) 4.0-12.0 Normal (applies to non-numeri c results) [facility] Eosinophils% (Auto) 1.0-8.0 Normal (applies to non-nume frank results) [facility] Basophils% (Auto) 0.0-2.0 Normal (applies to non-numeri c results) [facility] Immature Granulocytes% (Auto) 0.0-2.0 Normal (alexander lies to non-numeric results) [facility] Neutrophils# (Auto) 1.50-6.20 Normal (applies to non-nume frank results) [facility] Lymphocytes# (Auto) 1.20-4.00 Normal (applies to non-nume frank results) [facility] Monocytes# (Auto) 0.00-0.90 Normal (applies to non-numeri c results) [facility] Eosinophils# (Auto) 0.00-0.50 Normal (applies to non-nume frank results) [facility] Basophils# (Auto) 0.00-0.20 Normal (applies to non-numeri c results) [facility] Immature Granulocytes# (Auto) 0.00-7.00 No rmal (applies to non-numeric results) [facility] ID Date Data Source [id number] 04/23/2021 09:58:00 PM EDT [facility] Name Value Range Interpretation Code Description Data Stephanie rce(s) Supporting Document(s) UDS Benzodiazepines Screen Negative Normal (applies to n on-numeric results) [facility] UDS Cocaine Screen Negative Normal (applies to non-numer ic results) [facility] UDS Ampetamine Screen Negative Normal (applies to non-nu meric results) [facility] UDS Cannabinoids Screen Negative Normal (applies to non- numeric results) [facility] UDS Opiates Screen Negative Normal (applies to non-numer ic results) [facility] UDS Barbiturates Screen Negative Normal (applies to non- numeric results) [facility] Threshold Levels Benzodiazepine 200 ng/mL Cocaine 300 ng/mL Amphetamines 1000 ng/mL Cannabinoids (THC) 50 ng/mL Opiates 300 ng/mL Barbiturates 200 ng/mL All positive findings are presumptive and unconfirmed. Confirmation of positive results are performed only at request of provider. Unconfirmed results must not be used for non-medical purposes (i.e. preemployment and legal purposes) ID Date Data Source [id number] 04/23/2021 09:52:00 PM EDT [facility] Collected By: Nurse Initials: JT Time Collected: 2115 Collected By: Nurse Initials: JT Time Collected: 2115 Collected By: Nurse Initials: JT Time Collected: 2115 Name Value Range Interpretation Code Description Data Stephanie rce(s) Supporting Document(s) Color,Urine Colorl-Dk Y Normal (applies to non-numeric res ults) [facility] Clarity,Urine Clear Normal (applies to non-numeric re sults) [facility] Specific Randle,Urine 1.005-1.030 Normal (applies to non- numeric results) [facility] pH,Urine 5.0-8.0 Normal (applies to non-numeric resul ts) [facility] Protein,Urine Negative [facility] Glucose,Urine Negative Normal (applies to non-numeric re sults) [facility] Ketones,Urine Negative Normal (applies to non-numeric re sults) [facility] Blood,Urine Negative [facility] l Bilirubin,Urine Negative Normal (applies to non-numeric results) [facility] Urobilinogen,Urine 0.2-1.0 Normal (applies to non-numer ic results) [facility] Leukocyte Esterase,Urine Negative Normal (applies to non -numeric results) [facility] Nitrite,Urine Negative Normal (applies to non-numeric re sults) [facility] ID Date Data Source [id number] 04/23/2021 09:52:00 PM [facility] Collected By: Nurse Initials: JT Time Collected: 2115 Collected By: Nurse Initials: JT Time Collected: 2115 Collected By: Nurse Initials: JT Time Collected: 2115 Name Value Range Interpretation Code Description Data [facility] rce(s) Supporting Document(s) RBC,Urine None Seen [facility] WBC,Urine None Seen [facility] Casts,Urine None Seen Normal (applies to non-numeric resu lts) [facility] Squamous Cells,Urine None Seen [facility] Amorphous Sediment,Urine None Seen [facility] Bacteria,Urine None Seen [facility] ital ID Date Data Source [id number] 04/23/2021 09:52:00 PM [facility] Collected By: Nurse Initials: JT Time Collected: 2115 Collected By: Nurse Initials: JT Time Collected: 2115 Collected By: Nurse Initials: JT Time Collected: 2115 Name Value Range Interpretation Code Description Data Stephanie rce(s) Supporting Document(s) HCG,Ur Negative Normal (applies to non-numeric results) [facility] ID Date Data Source [id number] 04/21/2021 02:53:00 PM EDT [address] [address] HEALTH CONSULTPATIENT NAME: YARELI HATCH MR#: [id number] PHYSICIAN:AUTHOR: Colleen SMITH,Bogdan DATE: RM#: ERPATIENT : 00See AddendumHistoryHistory of Presenting IllnessPatient is 20-year-old female, currently lives in [facility], single, pastpsych history of borderline personality disorder, bipolar disorderChief complaint: Suicidal ideationHistory of present illness: Patient was seen along with PA students. Accordingto information from PSA patient was presented last night. She was banging herhead and expressing suicidal ideation while she was at [facility] and that is when shewas brought [...] as reaching out to staff member at [facility] if she does not feel safe.ER physician seems to be frustrated with patient recurrent emergency room visitbut upon discussion with the patient patient denied having any such behaviorpertaining to her safety prior to coming to the hospital or any intent to harmherself prior to the hospital. She was also requesting to have her clotheschanged and going back to [facility] as she was under order of [...] not feel safe to return back to [facility].However patient declined and also recommended case management services toprovide her help to find a suitable place that patient likes.DATE SIGNED: 04/21/21 Electronically SignedTIME SIGNED: 1502 BOGDAN MACIAS MD Name Value Range Interpretation Code Description Data Stephanie rce(s) Supporting Document(s) ID Date Data Source [id number] 04/20/2021 11:19:00 PM [facility] Value Range Interpretation Code Description Data Stephanie rce(s) Supporting Document(s) SALICYLATE < 1.7 mg/dL 0.0-20.0 [facility] ID Date Data Source [id number] 04/20/2021 11:19:00 PM [facility]T [facility] Name Value Range Interpretation Code Description Data Stephanie rce(s) Supporting Document(s) ACETAMINOPHEN < 2.0 ug/mL 0-30 [facility] [id number] 04/20/2021 11:19:00 PM EDT [facility] Name Value Range Interpretation Code Description Data Stephanie rce(s) Supporting Document(s) ETOH NONE DETECTED [facility] NONE DETECTED ID Date Data Source [id number] 04/20/2021 11:19:00 PM EDT [facility] Name Value Range Interpretation Code Description Data Stephanie rce(s) Supporting Document(s) GLU 100 mg/dL 70-110 [facility] Patients taking Sulfasalazine may have f alsely depressedGlucose levels. Patients taking Sulfapyridine may havefalsely elevated Glucose levels. Patients should be drawnfor Glucose before the initial administration of eitherdrug. BUN 16 mg/dL 7-23 [facility] CRE 0.657 mg/dL 0.500-1.300 [facility] GFR > 60 mL/min [facility] CHLORIDE 111 mmol/L 99-110 H [facility] NA 142 mmol/L 136-147 [facility] POTASSIUM 3.9 mmol/L 3.5-5.1 [facility] TCO2 24 mmol/L 20-33 [facility] ANION GAP 10.9 10.0-20.0 [facility] CA 8.6 mg/dL 8.3-10.7 [facility] ALKALINE PHOS 118 U/L 45-117 H [facility] TP 7.4 g/dL 6.0-7.8 [facility] ALB 3.4 g/dL 3.5-5.0 [facility] ESRD Dialysis patient Albumin reference range: 2.9-4.4 g/dL GL 4.0 g/dL 2.3-3.5 [facility] A/G 0.9 1.0-2.5 [facility] T. BILIRUBIN 0.3 mg/dL 0.1-1.1 [facility] [employer] [facility] [place] Total Bilirubin is n ot recommended forpatients undergoing treatment with eltrombopag (Promacta)due to the potential for falsely elevated results. ALTI 46 U/L 6-54 [facility] Patients taking Sulfasalazine and/or Sul fapyridine may havefalsely depressed ALT levels. Patients should be drawn forALT before the initial administration of either drug. AST 33 U/L 6-38 N [facility] Patients taking Sulfasalazine and/or Sul fapyridine may havefalsely depressed AST levels. Patients should be drawn forAST before the initial administration of either drug. ID Date Data Source [id number] 04/20/2021 11:01:00 PM EDT [facility] Name Value Range Interpretation Code Description Data Stephanie rce(s) Supporting Document(s) WBC 7.79 x10E3/uL 4.0-10.5 [facility] RBC 3.99 x10E6/uL 4.20-5.40 L [facility] Hemoglobin 11.7 g/dL 12.0-16.0 [facility] Hematocrit 35.3 % 37.0-47.0 [facility] MCV 88.5 fL 81.0-99.0 [facility] MCH 29.3 pg 27.0-31.0 [facility] MCHC 33.1 g/dL 32.7-35.6 [facility] RDW 12.2 % 11.5-14.0 [facility] Platelet count 264 x10E3/uL 150-450 N [facility] ital MPV 9.5 fl 6.9-9.5 [facility] Neutrophils 65.2 % 34-64 H [facility] Lymphocytes 27.2 % 25-45 [facility] Monocytes 6.0 % 1.7-10.6 [facility] Eosinophils 1.0 % 0.4-7.0 [facility] Basophils 0.3 % 0.1-2.0 [facility] Imm. Gran. 0.3 % 0.1-2.0 [facility] Abs. Neutro. 5.08 x10E3/uL 1.2-7.6 [facility] Abs. Lymph. 2.12 x10E3/uL 1.0-3.5 [facility] Abs. [place]. 0.47 x10E3/uL 0.1-1.0 [facility] Abs. Eosin. 0.08 x10E3/uL 0.1-0.7 [facility] Abs. Baso. 0.02 x10E3/uL 0.0-0.1 [facility] Abs. Imm. Gran. 0.02 x10E3/uL 0.0-0.1 N [facility] spital ANRBC% 0 % 0 N [facility] ID Date Data Source [id number] 04/20/2021 10:40:00 PM EDT [facility] Name Value Range Interpretation Code Description Data Stephanie rce(s) Supporting Document(s) LCOVID-19, [facility]GATIVE [facility] This lab was ordered by [facility] and reported by [facility]. ID Date Data Source [id number] 04/20/2021 11:16:00 PM EDT [facility] Name Value Range Interpretation Code Description Data Stephanie rce(s) Supporting Document(s) COVID-19, CORDELL NEGATIVE NEGATIVE N [facility] Methodology: Isothermal Nucleic Acid Amp [...] Emergency Use Authorization. ID Date Data Source [id number] 04/21/2021 03:43:00 PM EDT [facility] Physician DocumentationClLeticia Hinkle edical CenterName: Yareli DuvallAge: 20 yrsSex: FemaleDOB: 2000MRN: [id number] Date: 04/20/2021Time: 22:29Account#: [id number] MD: NONE, - Per PatientED Physician Ab Pires Summary:04/21/21 15:00Discharge OrderedLocation: Home Self CareafProblem: an ongoing problemafSymptoms: are unchangedafCondition: StableafDiagnosis- Adjustment disorder, unspecifiedafFollowup:af- With: Private Physician- When: 1 week- Reason: Recheck today's complaintsDischarge Instructions:- ADJUSTMENT DISORDERaf- Discharge Summary Snxgyym7Zfftf:- Medication Reconciliationaf- Medication Reconciliation Form - 2nd CopyafHPI:04/1104:45 This 20 yrs old White Female presents to ER via Police with complaints ofPsych Problem.na104:45 The patient presents to the emergency department with depression, PT.BROUGHT TO ED BY ex6ESZP FOR MHE. APPARENTLY SHE WAS HITTING HER [...] 400 mg intramuscular suspension,extended release syringe 400 gpltogx47 days3. ibuprofen 400 mg Oral tablet 1 [...] Negative for drug dependence, alcohol dependence, auditoryhallucinations, tt3vackko hallucinations, homicidal ideation. All other systems are negative.Exam:04:49 Head/Face: Normocephalic, atraumatic. Eyes: Pupils equal round andreactive to light, at3ykydc-edeupk motions intact. Lids and lashes normal. Conjunctiva [...] 97.7(T); Pulse Ox 95% on R/A; Pain0/10; jl15:87mi2652:32 Body Mass Index 37.12 (104.33 kg, 167.64 cm)ef1101115:40 Pain Scale: Cybjent70:43 mowemzodpj2UPT:03:21 Patient medically screened.na104:50 Data reviewed: vital signs, nurses notes, lab test result(s).na:31 Order name: Acetaminophen Level; Complete Time: 03:2:31 Order name: CBC with diff; Complete Time: 03:2:32 Order name: CMP; Complete Time: 03:2:32 Order name: COVID-19 PROFILE+LAB; Complete Time: 03:2:32 Order name: ETOH; Complete Time: 03:2:32 Order name: Jkekvxqnr745/1022:32 Order name: Salicylate Level; Complete Time: 03:2:32 Order name: Triage - Drug Nytzgkmk308/1022:32 Order name: UVqj162/1022:32 Order name: Urine HCG Qualitat /1022:32 Order name: Diet - Mental Health Tray (call dietary); Complete Time:22:43 ef2:32 Order name: Belongings List; Complete Time: 15:37aj4332:32 Order name: Document Weight and Height for BMI; Complete Time: 15:2:32 Order name: Mental Health Evaluation; Complete Time: 15:3:24 Order name: Medically Cleared for Eval by- Psychosocial, Theater Technician (.PSA)kr8Xakplcmyv Medications:15:42 Not Given (Patient Refused): ARIPiprazole 10 mg PO buoxbf504:42 Not Given (Patient Refused): Loratadine 10 mg PO jydksl318:42 Not Given (Patient Refused): Singulair Chewable Tablet 10 mg PO cvukxs790:42 Not Given (Patient Refused): Propranolol 10 mg PO ebukib829:42 Not Given (Patient Refused): sertraline 50 mg PO :42 Not Given (Physician Discretion): Topiramate 75 mg PO gtrmwq8Llhafhfnsp:Dispatcher [employer] Anshul Loving MD MD afAl-Hussein, Nabeel, MD MD na1Hilborne, Erica RN RN ef1 Name Value Range Interpretation Code Description Data Stephanie rce(s) Supporting Document(s) ID Date Data Source [id number] 04/21/2021 03:43:00 PM EDT [facility] [facility] terName: Yareli DuvallAge: 20 yrsSex: FemaleDOB: 2000MRN: [id number] Date: 04/20/2021Time: 22:29Account#: [id number] MD: NONE, - Per PatientDiagnosis: Adjustment disorder, unspecifiedPresentation:04/1022:30 Presenting complaint: Patient states: the business development professional got me because i wasbanging my head and aw4gzyptcrtte to tie something around my neck. International Travel Fever No.CoronavirusScreening: Have you received the COVID vaccine? Yes. Communicable DiseaseScreen:Negative for fever>/= 100 degrees Fahrenheit. Communicable disease screen isnegative.(-) rash or unusual skin lesion (-) travel/contact with traveler (-)respiratorysymptoms. Communication Speaks Hungarian? Yes, is preferred language.22:30 Acuity: Triage 2pr802:30 Acuity Assignment: Triage 8ha505:30 Method Of Arrival: Lqnszjdl6Ipdxlm Assessment:22:31 General: Appears in no apparent distress, [...] 400 mg intramuscular suspension,extended release syringe 400 lqmiiro96 days3. ibuprofen 400 mg Oral tablet 1 [...] threats or abuse. Denies injuries from another.Nutritional re6uslhygcyr: No deficits noted. Offer of HIV testing: patient was previouslyofferedscreening. Fall Risk None identified.Assessment:22:35 General: Appears in no apparent distress, obese, unkempt, Behavior isagitated. Neuro: by7Gercy of Consciousness is awake, alert, obeys commands. Respiratory: Nodeficits noted.04/1100:40 Reassessment: Reassessment: pt continually yelling and arguing andthrowing chairs [employer] antony aware - aware - pt has attempted to elope [...] is generated by a policeagency: Police. The wb9lqbdqap was referred for evaluation because Pt states "the business development professional got me becauseI wasbanging my head and [...] housing. Pt denies being verbally abusivetowardsstaff at [employer]. Pt denies threatening to tie something around her neck at [facility]. Pt states she would like to be discharged home as she is not suicidalandhomicidal. Pt has outpatient services at [facility] counselor [place]. Pt denies legal issues. Pt denies access toguns. PSAspoke with Nikky at [facility]. Nikky states the pt was banging her head in her roomand inthe hallway there at her residence. Nikky states the pt was verbally abusivetowardsstaff. Nikky states there needs to be a better plan for the pt as there seemsto be apattern of her going to the ED since she has been at [facility] since February 13 2021.Delusions are denied, Hallucinations are denied. Patient's mood is euthymic.14:22 Patient reports history of anxiety, Bipolar Disorder, Depression, Other:Borderline co6Keciveqrqcj Disorder. Mental Health Admissions: [facility], last 03/2021 CurrentOutpatientMental Health Services: Therapist / Agency: [facility] Living Environment: Family / Home Support: Fair The patient currentlylives kaley [facility] residence. The patient is single. Detox / Rehab Admissions: None. CurrentOutptAlcohol or Substance Abuse Services: None.14:24 Patient presents to Emergency Department with the following symptomswithin the past 2 uk7frzsy: self-mutilation, suicidal statements/threats. Objective: Patient iscooperative,Speech is normal. Affect is appropriate. Patient has mutilated themselves bycuttingright arm and left arm Cuts on arms from wire in face mask at [facility] facility [place]. Mental status exam: Patients [...] by phone with Dr Macias. DSM-V DX [place] I diagnosis:Adjustment D/OUnspecified [place] II diagnosis: Deferred [place] III diagnosis: None. [place] IVdiagnosis:poor coping skills. [place] Suicide Severity Rating Scale: Suicidal IdeationRating 0;Intensity of Ideations Rating 0; Suicidal Behavior Rating 0.14:35 Narrative Pt will be discharged back to [facility] per Dr. Macias with a diagnosisof Adjustment ag6Pdfmhblr. Pt can contract for safety. Pt denies SI/HI. Pt will follow up withtheiroutpatient provider, the [facility] and upcomingappointmentswill be verified and expedited. Pt has been provided with the PSA and Reachoutphonenumbers. Pt has been instructed to take medications as prescribed and return roper hospital ED should problems continue or worsen. Per Dr. Macias, pt will complete 5copingskills/5 goals.15:[address] Macias spoke with ED Dr. Strauss. Dr. Macias states the ptcapable of db1holxqh to the ED whenever she feels suicidal and that she needs to. Dr. Alvaerzuggestsinvolving Case Management and having [facility] make requests for other housingservices ifthe pt wishes not to live at [facility]. Dr. Macias states if the pt [...] 97.7(T); Pulse Ox 95% on R/A; Pain0/10; jl15:24dx673:32 Body Mass Index 37.12 (104.33 kg, 167.64 cm)ef110/1115:40 Pain Scale: Bhlmbzr99:43 amzzubezjp0TP Course:04/1022:29 Patient arrived in ED.ef122:29 NONE, - Per Patient is Private Physician.ef122:30 Triage completed.ef122:35 Patient has correct armband on for positive identification. Bed in lowposition. Sitter ef1at bedside. Verbal reassurance given. Pillow given.22:35 Labs drawn. Collected by lab. Nasal Swab.ef110/1103:21 Ramón Levy MD is Attending Physician.na106:52 Resting quietly.fw10:17 Appears to be sleeping.ef115:43 No Physician assisted procedures completed.cs8Qrahfhvwdnlf Medications:15:42 Not Given (Patient Refused): ARIPiprazole 10 mg PO azbiwy033:42 Not Given (Patient Refused): Loratadine 10 mg PO gpzotk155:42 Not Given (Patient Refused): Singulair Chewable Tablet 10 mg PO giilxl082:42 Not Given (Patient Refused): Propranolol 10 mg PO uebswk614:42 Not Given (Patient Refused): sertraline 50 mg PO zxyxze297:42 Not Given (Physician Discretion): Topiramate 75 mg PO dfjhxi5Mxckjxd:15:00 Discharge ordered by .af15:43 Disposition: Discharged to home ambulatory.ef115:43 Condition: stable, Provider notified of abnormal vital signs.15:43 Discharge instructions given to patient, Instructed on dischargeinstructions, followup and referral plans. Demonstrated understanding of instructions.15:43 Discharge Assessment: Patient verbalized understanding of dispositioninstructions.Patient able15:43 Patient left the ED.e g9Doapflhxix:Anshul Strauss MD MD afAl-Hussein, Nabeel, MD MD na1Hilborne, Erica, RN RN ef1LaSiege, Jolene, RN RN jlWest, Fayeanne, RN RN fwNhPearl ross db2Hsjfoucrjvc: (The following items were deleted from the chart)00:50 00:40 Reassessment: fwfw14:22 13:54 Referral Information: Evaluation referral is generated by lk6fv752:41 14:35 Narrative Pt will be discharged back to [facility] per Dr. Macias. Pt cancontract for gx2jxupgh. Pt denies SI/HI. [facility] and upcoming appointments will be verifiedandexpedited. Pt [...] housing. Pt denies being verbally abusivetowardsstaff at [facility]. Pt denies threatening to tie something around [facility] neck at [facility]. Pt states she would like to be discharged home as she is not suicidalandhomicidal. [facility]. Pt denies legal issues. Pt denies access toguns..Delusions are denied, Hallucinations are denied. Patient's mood is euthymic.em2 Name Value Range Interpretation Code Description Data Stephanie rce(s) Supporting Document(s) ID Date Data Source [id number] 04/19/2021 03:01:00 AM EDT [facility] Name Value Range Interpretation Code Description Data Stephanie rce(s) Supporting Document(s) SALICYLATE < 1.7 mg/dL 0.0-20.0 [facility] ID Date Data Source [id number] 04/19/2021 03:01:00 AM EDT [facility] Name Value Range Interpretation Code Description Data Stephanie rce(s) Supporting Document(s) ACETAMINOPHEN < 2.0 ug/mL 0-30 [facility] ID Date Data Source [id number] 04/19/2021 03:01:00 AM EDT [facility] [place] Name Value Range Interpretation Code Description Data Stephanie rce(s) Supporting Document(s) ETOH NONE DETECTED [facility] NONE DETECTED ID Date Data Source [id number] 04/19/2021 03:01:00 AM EDT [facility] [place] Name Value Range Interpretation Code Description Data Stephanie rce(s) Supporting Document(s) GLU 86 mg/dL 70-110 [facility] Patients taking Sulfasalazine may have f alsely depressedGlucose levels. Patients taking Sulfapyridine may havefalsely elevated Glucose levels. Patients should be drawnfor Glucose before the initial administration of eitherdrug. BUN 13 mg/dL 7-23 [facility] CRE 0.615 mg/dL 0.500-1.300 [facility] GFR > 60 mL/min [facility] CHLORIDE 113 mmol/L 99-110 [facility] NA 142 mmol/L 136-147 [facility] POTASSIUM 3.9 mmol/L 3.5-5.1 [facility] TCO2 24 mmol/L 20-33 [facility] ANION GAP 8.9 10.0-20.0 [facility] CA 8.6 mg/dL 8.3-10.7 [facility] ALKALINE PHOS 112 U/L 45-117 [facility] TP 7.3 g/dL 6.0-7.8 [facility] ALB 3.3 g/dL 3.5-5.0 [facility] ESRD Dialysis patient Albumin reference range: 2.9-4.4 g/dL GL 4.0 g/dL 2.3-3.5 [facility] A/G 0.8 1.0-2.5 [facility] T. BILIRUBIN 0.2 mg/dL 0.1-1.1 [facility] [employer] [place] Total Bilirubin is n ot recommended forpatients undergoing treatment with eltrombopag (Promacta)due to the potential for falsely elevated results. ALTI 41 U/L 6-54 [facility] Patients taking Sulfasalazine and/or Sul fapyridine may havefalsely depressed ALT levels. Patients should be drawn forALT before the initial administration of either drug. AST 26 U/L 6-38 [facility] Patients taking Sulfasalazine and/or Sul fapyridine may havefalsely depressed AST levels. Patients should be drawn forAST before the initial administration of either drug. ID Date Data Source [id number] 04/19/2021 02:32:00 AM EDT [facility] Name Value Range Interpretation Code Description Data Stephanie rce(s) Supporting Document(s) WBC 7.86 x10E3/uL 4.0-10.5 [facility] RBC 3.92 x10E6/uL 4.20-5.40 [facility] Hemoglobin 11.6 g/dL 12.0-16.0 [facility] Hematocrit 35.0 % 37.0-47.0 [facility] MCV 89.3 fL 81.0-99.0 [facility] MCH 29.6 pg 27.0-31.0 [facility] MCHC 33.1 g/dL 32.7-35.6 [facility] RDW 12.1 % 11.5-14.0 [facility] Platelet count 276 x10E3/uL 150-450 [facility] ital MPV 9.4 fl 6.9-9.5 [facility] Neutrophils 60.4 % 34-64 [facility] Lymphocytes 30.8 % 25-45 [facility] Monocytes 6.9 % 1.7-10.6 [facility] Eosinophils 1.1 % 0.4-7.0 [facility] Basophils 0.3 % 0.1-2.0 [facility] Imm. Gran. 0.5 % 0.1-2.0 [facility] Abs. Neutro. 4.75 x10E3/uL 1.2-7.6 [facility] Abs. Lymph. 2.42 x10E3/uL 1.0-3.5 [facility] Abs. [place]. 0.54 x10E3/uL 0.1-1.0 [facility] Abs. Eosin. 0.09 x10E3/uL 0.1-0.7 [facility] Abs. Baso. 0.02 x10E3/uL 0.0-0.1 [facility] Abs[facility] Imm. Gran. 0.04 x10E3/uL 0.0-0.1 [facility] spital ANRBC% 0 % 0 [facility] ID Date Data Source [id number] 04/19/2021 02:36:00 AM EDT [facility] Name Value Range Interpretation Code Description Data Stephanie rce(s) Supporting Document(s) PCP VISTA NEG NEGATIVE [facility] MINIMUM LEVEL OF DETECTION IS 25 ng/ml BENZODIAZEPINES [facility]G NEGATIVE [facility] MINIMUM LEVEL OF DETECTION IS 200 ng/ml COCAINE VISTA NEG NEGATIVE [facility] MINIMUM LEVEL OF DETECTION IS 300 ng/ml AMPHETAMINES NEG NEGATIVE [facility] al MINIMUM LEVEL OF DETECTION IS 1000 ng/ml BARBITURATES [facility]G [facility]GATIVE [facility] CUTOFF CONCENTRATION IS 200 ng/ml CANNABINOIDS NEG NEGATIVE [facility] al CUTOFF CONCENTRATION IS 50 ng/ml METHADONE VISTA NEG NEGATIVE [facility] MINIMUM LEVEL OF DETECTION IS 300 ng/ml OPIATE VISTA NEG NEGATIVE [facility] MINIMUM DETECTION LEVEL IS 300 ng/ml ID Date Data Source [id number] 04/19/2021 02:16:00 AM EDT [facility] [place] Name Value Range Interpretation Code Description Data Stephanie rce(s) Supporting Document(s) HCG QUAL URINE Negative Negative [facility] l ID Date Data Source [id number] 04/19/2021 02:16:00 [facility] [place] Name Value Range Interpretation Code Description Data Stephanie rce(s) Supporting Document(s) URINE COLOR Yellow [facility] UAPR Cloudy [facility] UGLU Negative NEGATIVE [facility] URINE BILIRUBIN [facility] UKET Negative NEGATIVE [facility] USG 1.029 1.010-1.025 [facility] UBLO Negative NEGATIVE [facility] UpH 5.5 5.0-8.0 [facility] UPRO Negative Negative [facility] UUB 1.0 mg/dL 0.2-1.0 [facility] UNIT Negative Negative [facility] ULEU Negative Negative [facility] ID Date Data Source [id number] 04/19/2021 01:30:00 AM EDT [facility] Name Value Range Interpretation Code Description Data Stephanie rce(s) Supporting Document(s) LCOVID-19, CORDELL NEGATIVE [facility] This lab was ordered by [facility] and reported by [facility]. ID Date Data Source [id number] 04/19/2021 02:30:00 AM EDT [facility] Name Value Range Interpretation Code Description Data Stephanie rce(s) Supporting Document(s) COVID-19, CORDELL NEGATIVE NEGATIVE N [facility] Methodology: Isothermal Nucleic Acid Amp [...] Emergency Use Authorization. ID Date Data Source [id number] 04/19/2021 02:55:00 PM EDT [facility] Physician DocumentationClaxlexy-Naveen Hinkle edical CenterName: Yareli DuvallAge: 20 yrsSex: FemaleDOB: 2000MRN: [id number] Date: 04/19/2021Time: 01:17Account#: [id number] MD: NONE, - Per PatientED Physician Rebekah Groverposition Summary:04/19/21 14:31Discharge OrderedLocation: Home Self CareafProblem: an ongoing problemafSymptoms: are unchangedafCondition: StableafDiagnosis- Bipolar disorder, unspecifiedafFollowup:af- With: Private Physician- When: 1 week- Reason: Recheck today's complaintsDischarge Instructions:- BIPOLAR DISORDERaf- Discharge Summary Repfxjq21Rxjur:- Medication Reconciliationaf- Medication Reconciliation Form - 2nd CopyafHPI:04/907:14 This 20 yrs old White Female presents to ER via Police with complaints ofPsych Problem.br07:14 Obese 20-year-old female brought by PD for evaluation of self- harm.Please call to seen brpatient where she was seen slamming her head against the wall after attemptingto cutwrists w wire from covid mask. self endorses having been released from [facility].Historical:- Allergies: Haldol; Risperdal;- Home Meds:1. aripiprazole 10 mg oral tablet 1 tab daily2. aripiprazole 400 mg intramuscular suspension,extended release syringe 400 chbtcfi97 days3. ibuprofen 400 mg Oral tablet 1 [...] Temp 98.3; Pulse Ox 98% on R/A; Knudru428.33 kg; gn4Hjusiu 5 ft. 6 in. ; Pain 0/10;14:44 BP 119 / 88; Pulse 88; Resp 16; Temp 98; Pulse Ox 98% ;kk201:24 Body Mass Index 37.12 (104.33 kg, 167.64 cm)kk301:24 Pain Scale: Yjbeeay7JWH:01:33 Patient medically screened.br07:17 Data reviewed: vital signs, [...] name: ETOH; Complete Time: 03::37 Order name: Hcvzayrjs834/0901:37 Order name: Salicylate Level; Complete Time: 03::37 Order name: Triage - Drug Screen; Complete Time: 03::37 Order name: UA; Complete Time: 03::37 Order name: Urine HCG Qualitative; Complete Time: 03::37 Order name: Diet - Mental Health Tray (call dietary):37 Order name: Belongings Ecuahq311:37 Order name: Document Weight and Height for DLPhh593:37 Order name: Mental Health Esdmiwlnduwm225/0901:37 Order name: Mental Health Level 0tg845:37 Order name: VS q joqyowq091/0903:17 Order name: Consult Orders-Psychosocial, Theater Technician (.PSA)brDispensed Medications:03:37 Drug: B52 IM - (LORazepam 2 mg, diphenhydrAMINE 50 mg, HaloperidolLactate 5 mg) Route: cm4IM; Site: left vastus lateralis;Signatures:Dispatcher [employer] Anshul Loving MD MD afRoberts, Brandon, MD MD brKelly, Ratna, RN RN sb0BiqmjkaujWendy quintana RN RN cm4 Name Value Range Interpretation Code Description Data Stephanie rce(s) Supporting Document(s) ID Date Data Source [id number] 04/19/2021 02:55:00 PM EDT [facility] Nurse's NotesClaxC[facility] Tootie terName: Yareli DuvallAge: 20 yrsSex: FemaleDOB: 2000MRN: [id number] Date: 04/19/2021Time: 01:17Account#: [id number] MD: NONE, - Per PatientDiagnosis: Bipolar disorder, unspecifiedPresentation:04/901:18 Presenting complaint: Patient states: "Well, the business development professional came because I wasbanging my cd3dexe on the wall and I wasn't being suicidal.". Coronavirus Screening: Have youbeendiagnosed with COVID-19 in the past 30 days? no Are you currently on quarantinebyPublic Health? no Flu-like symptoms reported in the last 14 days: no. Have youhadclose contact with confirmed or suspected COVID-19 case? no Do you live in asettingwhere a large of amount of people live, such as [facility], [facility] care,[facility], etc?yes. Have you traveled to a location with widespread or ongoing COVID-19communityspread or outside of [facility]? no Have you traveled internationally or hadcontact withsomeone that has traveled and has been ill in the past 3 weeks? no Have youreceivedthe COVID vaccine? Yes Sophia unknown. Communication Speaks Hungarian? Yes, ispreferredlanguage. Language Line Services needed? No Are TDD needed? No. Best learningmethod:discussion. Learning barriers: none identified.01:18 Acuity: Triage 3xx378:18 Method Of Arrival: Ryrkfjmp793:19 Acuity Assignment: Triage 4vj370:21 International Travel Fever No. Communicable Disease Screen: Negative forfever>/= 100 pa5nxdzbno Fahrenheit. Communicable disease screen is negative. (-) rash orunusual skinlesion (-) travel/contact with traveler (-) respiratory symptoms.Triage Assessment:01:24 General: Appears unkempt, well nourished, Behavior is appropriate forage, cooperative, kg5Ouigbz fever, chills. Sepsis Screening: (1)Signs/symptoms infection Sepsis isnotsuspected. Pain: Denies pain. PSS-3 Now I'm going to ask you some questionsthat we askeveryone treated here, no matter what problem they are here for. [facility] and it helps us to [...] 400 mg intramuscular suspension,extended release syringe 400 lhqyhug27 days3. ibuprofen 400 mg Oral tablet 1 [...] threats or abuse. Denies injuries from another.Nutritional ho2mxdeuktdp: No deficits noted. Offer of HIV testing: patient was previouslyofferedscreening. Fall Risk None identified.Assessment:01:35 Reassessment: No changes from previously documented assessment.kk301:54 Reassessment: Patient refused to have labs drawn, explained mental healthprocess and kk3the steps necessary to be medically cleared, patient still refused, PSA and EDprovidermade aware.02:22 Reassessment: patient starts refusing blood work and screaming at staff.OPD called to ci0fseaftj, patient is known to be aggressive. Patient gets aggitated when thepolice gethere and continues to scream at staff, code carmen called. Patient agrees toget bloodwork done. .03:38 Reassessment: patient tries to elope twice, walking out to the ramp.Patient was gu7vpnrpxykbt and followed out to the ramp, patient did come back inside bothtimes.Patient begins hitting her head off the wall and not cooperating with staff andyelling/ calling staff vulgar names. Patient has no self control at this timescreamingin the ER. Code orange called..03:52 Reassessment: Patient placed in 4 point restraints at 0342 due tocontinued lack of yf8ckcc control.04:33 Reassessment: patient released from restraints at 0433.cm404:46 Reassessment: Patient appears in no apparent distress at this time.cm407:30 Reassessment: Patient appears in no apparent distress at this time. Nochanges from ul2taxjgfbkyu documented assessment. Patient sleeping.09:57 Reassessment: Patient appears in no apparent distress at this time. Nochanges from vt1bstefxhocx documented assessment. Patient sleeping. .Psychosocial:07:26 SAFE Act [...] facilities last being three days ago at [facility]. Ptreportsthat she has been and eating and sleeping well. Pt [facility] Pt states that she does not feelshe needsinpatient services at this time. Pt reports she feels she would be safe to bedischarged home at this time back to [facility]. Delusions are denied, Hallucinationsaredenied. Patient's mood is depressed.12:00 Patient reports history of anxiety, Bipolar Disorder, Depression, self-mutilation, gz16Hqrimk Health Admissions: multiple last yash ng at [facility] two days ago CurrentOutpatient Mental Health Services: [facility].LivingEnvironment: Family / Home Support: good [facility]12[facility]04 Patient presents to Emergency Department with the following symptomswithin the past 2 kr87cctyx: Anger, anxiety, depressed mood, poor concentration, poor impulsecontrol,suicidal ideation with no plan.12:06 Objective: Patient is cooperative, Speech is normal. Affect isappropriate. Mental ki19cnxens exam: Patients appearance is appropriate, Patient's behavior [...] patient's status at 13:33, ED MDnotified of ob45jenbeaof status at 13:33. Disposition: Medically cleared for disposition by [facility].Psychiatric Consult is performed by phone with Dr Strauss The patient has asafedestination which is Pt will be discharged to [facility] per Dr. Canela. Pt cancontract forsafety and denies SI/HI. Pt will follow up with outpatient next week. Pt willtakemedications as prescribed. Pt provided contact information for JIMY Mazariegos. Ptwill come to the ED if problems continue or worsen. DSM-V DX [place] I diagnosis:BipolarD/O, Unspecified [place] II diagnosis: Deferred [place] III diagnosis: None. [place] IVdiagnosis: poor impulse control. The patient is not a tire servicer ormilitarydependent. [place] Suicide Severity Rating Scale: Suicidal Ideation Rating 0;Intensity of Ideations Rating 0; Suici reji Behavior Rating 0.Psych:01:28 Subjective: Patient's mood is euphoric, Delusions are denied,Hallucinations are denied bv1Fsjjwt thoughts of suicide. Denies suicidal plan. Objective: [...] Zeeshan Grover [facility] notified. Wendy Luis Level 3 order placed.Vital Signs:01:24 BP 132 / 107; Pulse 91; Resp 20; Temp 98.3; Pulse Ox 98% on R/A; Exkjdb199.33 kg; oe3Tfctil 5 ft. 6 in. ; Pain 0/10;14:44 BP 119 / 88; Pulse 88; Resp 16; Temp 98; Pulse Ox 98% ;kk201:24 Body Mass Index 37.12 (104.33 kg, 167.64 cm)kk301:24 Pain Scale: Mpbhvzz8SN Course:01:17 Patient arrived in ED.kk301:18 NONE, - Per Patient is Private Physician.kk301:19 Triage completed.kk301:30 Ratna Barbosa RN is Primary Nurse.kk301:33 Zeeshan Grover MD is Attending Physician.br01:35 Urine collected. Clean catch specimen. Nasal Swab Collected by Nurse.kk301:40 Patient has correct armband on for positive identification. Placed ingown. Bed in low vj6vepuqzaf. Call light in reach. Side rails up [...] has no functional deficits.14:55 Patient left the ED.mh5Zlomesyvmz:Anshul Strauss MD MD afKnight, Kristin RN RN hs4BwepIna Jack Brandon, MD MD brKelly, Krista, RN RN mq1Npwhijuh, Usha ni0Ztnpcwhdw, Wendy, RN RN fe2Efbx, Olivia, RN RN sw2 Name Value Range Interpretation Code Description Data Stephanie rce(s) Supporting Document(s) ID Date Data Source [id number] 04/17/2021 10:05:00 AM EDT [facility] Name Value Range Interpretation Code Description Data Stephanie rce(s) Supporting Document(s) Respiratory specimen severe acute respir atory syndrome coronavirus 2 (SARS-CoV-2) RNA Negative (qualifier value) [facility] This lab was ordered by [facility] and reported by . ID Date Data Source [id number] 04/17/2021 10:35:00 AM EDT [facility] Name Value Range Interpretation Code Description Data Stephanie rce(s) Supporting Document(s) SARS-CoV-2 RNA Negative Normal (applies to non-numeric r esults) [facility] Negative results should be treated as [...] Certificate of Accreditation. Factsheets for healthcare providers: https://www.fda.gov/media/203528/download Factsheets for patients: https://www.fda.gov/media/015140/download The ID NOW Instrument is a rapid molecular in vitro diagnostic test utilizing an isothermal nucleic acid amplification technology intended for the qualitative detection of nucleic acid from the SARS-CoV-2 viral RNA. THIS IS A STATE REPORTABLE COMMUNICABLE DISEASE. Manual entry verified by Megan Murphy 04/17/21 1034 ID Date Data Source [id number] 04/17/2021 10:56:00 AM EDT [facility] Name Value Range Interpretation Code Description Data Stephanie rce(s) Supporting Document(s) HCG,Ur Negative Normal (applies to non-numeric results) [facility] ID Date Data Source [id number] 04/17/2021 02:47:00 AM EDT [facility] Name Value Range Interpretation Code Description Data Stephanie rce(s) Supporting Document(s) UDS Benzodiazepines Screen Negative Normal (applies to n on-numeric results) [facility] UDS Cocaine Screen Negative Normal (applies to non-numer ic results) [facility] UDS Ampetamine Screen Negative Normal (applies to non-nu meric results) [facility] UDS Cannabinoids Screen Negative Normal (applies to non- numeric results) [facility] UDS Opiates Screen Negative Normal (applies to non-numer ic results) [facility] UDS Barbiturates Screen Negative Normal (applies to non- numeric results) [facility] Threshold Levels Benzodiazepine 200 ng/mL Cocaine 300 ng/mL Amphetamines 1000 ng/mL Cannabinoids (THC) 50 ng/mL Opiates 300 ng/mL Barbiturates 200 ng/mL All positive findings are presumptive and unconfirmed. Confirmation of positive results are performed only at request of provider. Unconfirmed results must not be used for non-medical purposes (i.e. preemployment and legal purposes) ID Date Data Source [id number] 04/17/2021 02:46:00 AM [facility] Collected By: Nurse Initials: JT Time Collected: 214 Collected By: Nurse Initials: JT Time Collected: 214 Name Value Range Interpretation Code Description Data [facility] rce(s) Supporting Document(s) Color,Urine Colorl-Dk Y Normal (applies to non-numeric res ults) [facility] Clarity,Urine Clear Normal (applies to non-numeric re sults) [facility] Specific Randle,Urine 1.005-1.030 [facility] pH,Urine 5.0-8.0 Normal (applies to non-numeric resul ts) [facility] Protein,Urine Negative Normal (applies to non-numeric re sults) [facility] Glucose,Urine Negative Normal (applies to non-numeric re sults) [facility] Ketones,Urine Negative Normal (applies to non-numeric re sults) [facility] Blood,Urine Negative [facility] Bilirubin,Urine Negative [facility] pital Urobilinogen,Urine 0.2-1.0 Normal (applies to non-numer ic results) [facility] Leukocyte Esterase,Urine Negative [facility] Nitrite,Urine Negative Normal (applies to non-numeric re sults) [facility] ID Date Data Source [id number] 04/17/2021 02:46:00 AM [facility] Collected By: Nurse Initials: JT Time Collected: 214 Collected By: Nurse Initials: JT Time Collected: 214 Name Value Range Interpretation Code Description Data [facility] Supporting Document(s) RBC,Urine None Seen [facility] WBC,Urine None Seen [facility] Casts,Urine None Seen Normal (applies to non-numeric resu lts) [facility] Squamous Cells,Urine None Seen [facility] Amorphous Sediment,Urine None Seen [facility] Bacteria,Urine None Seen [facility] ital ID Date Data Source [id number] 04/17/2021 02:29:00 AM EDT [facility] Name Value Range Interpretation Code Description Data Stephanie rce(s) Supporting Document(s) Sodium 139 mmol/L 136-145 Normal (applies to non-numeric resul ts) [facility] Potassium 3.5-5.1 Below low normal [facility] spital Chloride 102 mmol/L 98-107 Normal (applies to non-numeric resul ts) [facility] Carbon Dioxide CO2 21-32 Normal (applies to non-numer ic results) [facility] Anion Gap 5.0-16.0 Normal (applies to non-numeric resul ts) [facility] BUN 12 mg/dL 7-18 Normal (applies to non-numeric results) [facility] Creatinine,Serum 0.7-1.2 Normal (applies to non-numeric results) [facility] GFR >60 Normal (applies to non-numeric results) [facility] Glucose Level 99 mg/dL 60-99 Normal (applies to non-numeric re sults) [facility] Reference range is only applicable when patient is fasting Note the following drug interference: Sulfasalazine Sulfapyridine Can see falsely depressed Can see falsely elevated result with up to 17% results with up to 11% decrease in measurement increase in measurement Recommend patients be collected for this test prior to administration of either drug. Calcium 8.5-10.1 Normal (applies to non-numeric resul ts) [facility] Bilirubin,Total 0.1-1.9 Normal (applies to non-numeric results) [facility] SGOT(AST) 26 U/L 15-37 Normal (applies to non-numeric resul ts) [facility] Note the following drug interference: Sulfasalazine Sulfapyridine Can see falsely depressed Can see falsely elevated result with up to 10% results with up to 10% decrease in measurement increase in measurement Recommend patients be collected for this test prior to administration of either drug. SGPT(ALT) 45 U/L 12-78 Normal (applies to non-numeric resul ts) [facility] Note the following drug interference: Sulfasalazine Sulfapyridine Can see falsely depressed Can see falsely elevated result with up to 29% results with up to 10% decrease in measurement increase in measurement Recommend patients be collected for this test prior to administration of either drug. Alkaline Phosphatase 133 U/L 38-126 Above high normal [facility] can increase Alkaline Phosp le vels up to 2 times the normal adult value. Normal values for children and adolescents are 2 to 3 times the normal adult value. Total Protein 6.0-8.2 Normal (applies to non-numeric re sults) [facility] Albumin Level 3.4-5.0 Normal (applies to non-numeric re sults) [facility] ID Date Data Source [id number] 04/17/2021 02:29:00 AM EDT [facility] Name Value Range Interpretation Code Description Data Stephanie rce(s) Supporting Document(s) Salicylate 2.8-20.0 Below low normal [facility] ospital ID Date Data Source [id number] 04/17/2021 02:29:00 AM EDT [facility] Name Value Range Interpretation Code Description Data Stepahnie rce(s) Supporting Document(s) Troponin I 0.000-0.056 Normal (applies to non-numeric resu lts) [facility] ID Date Data Source [id number] 04/17/2021 02:29:00 AM EDT [facility] Name Value Range Interpretation Code Description Data Stephanie rce(s) Supporting Document(s) Acetaminophen 10.0-30.0 Below low normal [facility] ID Date Data Source [id number] 04/17/2021 02:29:00 AM EDT [facility] Name Value Range Interpretation Code Description Data Stephanie rce(s) Supporting Document(s) Magnesium 1.8-2.4 Normal (applies to non-numeric resul ts) [facility] ID Date Data Source [id number] 04/17/2021 02:28:00 AM EDT [facility] Name Value Range Interpretation Code Description Data Stephanie rce(s) Supporting Document(s) Ethanol Less than 10.0 Normal (applies to non-numeric r esults) [facility] ID Date Data Source [id number] 04/17/2021 02:07:00 AM EDT [facility] Name Value Range Interpretation Code Description Data Stephanie rce(s) Supporting Document(s) White Blood Count 3.5-10.5 Normal (applies to non-numeri c results) [facility] Red Blood Count 3.90-5.00 Normal (applies to non-numeric results) [facility] Hemoglobin 12.0-15.5 Normal (applies to non-numeric resul ts) [facility] Hematocrit 34.9-44.5 Normal (applies to non-numeric resul ts) [facility] Mean Corpuscular Volume 81.2-95.1 Normal (applies to non- numeric results) [facility] Mean Corpuscular Hgb 25.6-32.2 Normal (applies to non-num deena results) [facility] Mean Corpuscular Hgb Conc 32.0-36.0 Normal (applies to no n-numeric results) [facility] Red Cell Distribution Width 11.9-15.5 Normal (appli es to non-numeric results) [facility] Platelet Count 285 x10 3/uL 150-450 Normal (applies to non-numeric results) [facility] Mean Platelet Volume 9.4-12.4 Normal (applies to non-num deena results) [facility] Neutrophils% (Auto) 31.0-71.0 Normal (applies to non-nume frank results) [facility] Lymphocytes% (Auto) 20.0-55.0 Normal (applies to non-nume frank results) [facility] Monocytes% (Auto) 4.0-12.0 Normal (applies to non-numeri c results) [facility] Eosinophils% (Auto) 1.0-8.0 Normal (applies to non-nume frank results) [facility] Basophils% (Auto) 0.0-2.0 Normal (applies to non-numeri c results) [facility] Immature Granulocytes% (Auto) 0.0-2.0 Normal (alexander lies to non-numeric results) [facility] Neutrophils# (Auto) 1.50-6.20 Above high normal [facility] Lymphocytes# (Auto) 1.20-4.00 Normal (applies to non-nume frank results) [facility] Monocytes# (Auto) 0.00-0.90 Normal (applies to non-numeri c results) [facility] Eosinophils# (Auto) 0.00-0.50 Normal (applies to non-nume frank results) [facility] Basophils# (Auto) 0.00-0.20 Normal (applies to non-numeri c results) [facility] Immature Granulocytes# (Auto) 0.00-7.00 No rmal (applies to non-numeric results) [facility] ID Date Data Source [id number] 04/14/2021 03:02:00 PM EDT [address] CONSULTPATIENT NAME: YARELI HATCH MR#: [id number] PHYSICIAN:AUTHOR: Surendra SMITH,P. DATE: #: ERPATIENT : 00HistoryAdditional NotesYareli is a 20-year-old single white female with the long history of mentalillness and multiple hospitalization pretty much in most of the [facility] specialty hospital hospitalin this area. She was recently discharged [...] her suicidal.So, then she was taken to [facility] [place]. While she was in the [facility],she claims she escaped from the hospital at which point a pickup order wasissued then she was brought to [facility] yesterday. I saw her today int ER.In my evaluation today which I conducted with Gloria, learning and development coordinator and2 students from [facility] I found her to be not hostile, [...] the ER and the mental health unit inthe area demanding to be admitted for her [...] Name Value Range Interpretation Code Description Data [facility](s) Supporting Document(s) ID Date Data Source [id number] 04/13/2021 10:06:00 PM EDT [facility] Name Value Range Interpretation Code Description Data [facility] Supporting Document(s) WBC 11.79 x10E3/uL 4.0-10.5 [facility] RBC 4.27 x10E6/uL 4.20-5.40 [facility] Hemoglobin 12.5 g/dL 12.0-16.0 [facility] Hematocrit 37.7 % 37.0-47.0 [facility] MCV 88.3 fL 81.0-99.0 [facility] MCH 29.3 pg 27.0-31.0 [facility] MCHC 33.2 g/dL 32.7-35.6 [facility] RDW 12.4 % 11.5-14.0 [facility] Platelet count 262 x10E3/uL 150-450 [facility] ital MPV 10.3 fl 6.9-9.5 [facility] Neutrophils 75.6 % 34-64 [facility] Lymphocytes 17.2 % 25-45 [facility] Monocytes 5.9 % 1.7-10.6 [facility] Eosinophils 0.6 % 0.4-7.0 [facility] Basophils 0.3 % 0.1-2.0 [facility] Imm. Gran. 0.4 % 0.1-2.0 [facility] Abs. Neutro. 8.92 x10E3/uL 1.2-7.6 [facility] Abs. Lymph. 2.03 x10E3/uL 1.0-3.5 [facility] Abs. [place]. 0.69 x10E3/uL 0.1-1.0 N [facility] Abs. Eosin. 0.07 x10E3/uL 0.1-0.7 [facility] Abs. Baso. 0.03 x10E3/uL 0.0-0.1 N [facility] l Abs. Imm. Gran. 0.05 x10E3/uL 0.0-0.1 [facility] spital ANRBC% 0 % 0 [facility] ID Date Data Source [id number] 04/13/2021 09:38:00 PM EDT [facility] Name Value Range Interpretation Code Description Data Stephanie rce(s) Supporting Document(s) GLU 95 mg/dL 70-110 [facility] Patients taking Sulfasalazine may have f alsely depressedGlucose levels. Patients taking Sulfapyridine may havefalsely elevated Glucose levels. Patients should be drawnfor Glucose before the initial administration of eitherdrug. BUN 14 mg/dL 7-23 [facility] CRE 0.672 mg/dL 0.500-1.300 [facility] GFR > 60 mL/min [facility] CHLORIDE 110 mmol/L 99-110 [facility] NA 141 mmol/L 136-147 [facility] POTASSIUM 4.5 mmol/L 3.5-5.1 [facility] TCO2 23 mmol/L 20-33 [facility] ANION GAP 12.5 10.0-20.0 [facility] CA 8.6 mg/dL 8.3-10.7 [facility] ALKALINE PHOS 125 U/L 45-117 [facility] TP 8.0 g/dL 6.0-7.8 [facility] ALB 3.6 g/dL 3.5-5.0 [facility] ESRD Dialysis patient Albumin reference range: 2.9-4.4 g/dL GL 4.4 g/dL 2.3-3.5 [facility] A/G 0.8 1.0-2.5 [facility] T. BILIRUBIN 0.3 mg/dL 0.1-1.1 [facility] [employer] [place] Total Bilirubin is n ot recommended forpatients undergoing treatment with eltrombopag (Promacta)due to the potential for falsely elevated results. ALTI 51 U/L 6-54 [facility] Patients taking Sulfasalazine and/or Sul fapyridine may havefalsely depressed ALT levels. Patients should be drawn forALT before the initial administration of either drug. AST 32 U/L 6-38 [facility] Patients taking Sulfasalazine and/or Sul fapyridine may havefalsely depressed AST levels. Patients should be drawn forAST before the initial administration of either drug. ID Date Data Source [id number] 04/13/2021 09:38:00 PM EDT [facility] Name Value Range Interpretation Code Description Data Stephanie rce(s) Supporting Document(s) SALICYLATE < 1.7 mg/dL 0.0-20.0 [facility] ID Date Data Source [id number] 04/13/2021 09:38:00 PM EDT [facility] Name Value Range Interpretation Code Description Data Stephanie rce(s) Supporting Document(s) ACETAMINOPHEN < 2.0 ug/mL 0-30 [facility] Date Data Source [id number] 04/13/2021 09:38:00 PM EDT [facility] Name Value Range Interpretation Code Description Data Stephanie rce(s) Supporting Document(s) ETOH 0.007 g/dL NONE DETECTED [facility] ID Date Data Source [id number] 04/13/2021 08:47:00 PM EDT [facility] Name Value Range Interpretation Code Description Data Stephanie rce(s) Supporting Document(s) LCOVID-19, CORDELL NEGATIVE [facility] This lab was ordered by [facility] and reported by [facility]. ID Date Data Source [id number] 04/13/2021 09:21:00 PM EDT [facility] Name Value Range Interpretation Code Description Data Stephanie rce(s) Supporting Document(s) COVID-19, CORDELL NEGATIVE NEGATIVE [facility] Methodology: Isothermal Nucleic Acid Amp [...] Emergency Use Authorization. ID Date Data Source [id number] 04/13/2021 09:48:00 PM EDT [facility] Name Value Range Interpretation Code Description Data [facility] rce(s) Supporting Document(s) PCP VISTA NEG NEGATIVE [facility] MINIMUM LEVEL OF DETECTION IS 25 ng/ml BENZODIAZEPINES NEG NEGATIVE [facility] al MINIMUM LEVEL OF DETECTION IS 200 ng/ml COCAINE VISTA NEG NEGATIVE [facility] MINIMUM LEVEL OF DETECTION IS 300 ng/ml AMPHETAMINES NEG NEGATIVE [facility] al MINIMUM LEVEL OF DETECTION IS 1000 ng/ml BARBITURATES NEG NEGATIVE [facility] al CUTOFF CONCENTRATION IS 200 ng/ml CANNABINOIDS NEG NEGATIVE [facility] al CUTOFF CONCENTRATION IS 50 ng/ml METHADONE VISTA NEG NEGATIVE [facility] al MINIMUM LEVEL OF DETECTION IS 300 ng/ml OPIATE VISTA NEG NEGATIVE [facility] MINIMUM DETECTION LEVEL IS 300 ng/ml ID Date Data Source [id number] 04/13/2021 09:38:00 PM EDT [facility] Name Value Range Interpretation Code Description Data Stephanie rce(s) Supporting Document(s) URINE COLOR Yellow [facility] UAPR Turbid [facility] UGLU Negative NEGATIVE [facility] URINE BILIRUBIN [facility] UKET Negative NEGATIVE [facility] USG 1.017 1.010-1.025 [facility] UBLO Negative NEGATIVE [facility] UpH 7.5 5.0-8.0 [facility] UPRO Negative Negative [facility] UUB 1.0 mg/dL 0.2-1.0 [facility] UNIT Negative Negative [facility] ULEU Trace Negative [facility] ID Date Data Source [id number] 04/13/2021 09:38:00 PM EDT [facility] Name Value Range Interpretation Code Description Data Stephanie rce(s) Supporting Document(s) URINE RBC 0-2 RBCs/HPF NONE SEEN [facility] URINE WBC 0-2 WBCs/HPF NONE SEEN [facility] URINE BACTERIA Few NONE SEEN [facility] URINE EPI. Many NONE SEEN [facility] URINE CRYSTAL MANY AMORPHOUS NONE SEEN [facility] pital ID Date Data Source [id number] 04/13/2021 09:38:00 PM EDT [facility] Name Value Range Interpretation Code Description Data Stephanie rce(s) Supporting Document(s) HCG QUAL URINE Negative Negative [facility] l ID Date Data Source [id number] 04/14/2021 04:43:00 PM EDT [facility] Physician DocumentationClaxlexy-Naveen Hinkle edical CenterName: Yareli DuvallAge: 20 yrsSex: FemaleDOB: 2000MRN: [id number] Date: 04/13/2021Time: 20:28Account#: [id number] MD: NONE, - Per PatientED Physician Santiago RajanDiszach Summary:04/14/21 16:06Discharge OrderedLocation: Home Self Jhjmus9Nkdpopo: wyljdqqkz2Ujsiuvxx: are fjrcudvncwi7Kdouuejmj: Bcnddjyx0Kwawgvimn- Major depressive disorder, recurrent, wkicrupwzjlyl6Ivucstwg:rf2- With: Private Physician- When: 2 - 3 days- Reason: Recheck today's complaints, Continuance of careDischarge Instructions:- Discharge Summary Mrbiczi26- ZVPTUGCMBTuj5Cuhhx:- Medication Reconciliationrf2- Medication Reconciliation Form - 2nd Hurmgk3HZI:04/320:42 This 20 yrs old White Female presents to ER via Police with complaints ofPsych Problem.th420:42 Associated signs and symptoms: Pertinent negatives: abdominal pain, chestpain, fever, lu6seraxzej, nausea, shortness of breath, vomiting. Patient is [facility] evaluation. Patient is well-known to the ER. She has been seenmany timesin the past for the same. She was last here on April 09 and was admitted atthattime. Patient reports that she [facility] the lastcouple dayswith suicidal [...] 400 mg intramuscular suspension,extended release syringe 400 otriwot29 days3. ibuprofen 400 mg Oral tablet 1 [...] Eyes: Negative for acute changes.ENT: Negative for rs3dfxbu discharge, rhinorrhea, sinus congestion. Neck: Negative for [...] 53.26 (149.69 kg, 167.64 cm)jw523:48 Pain Scale: Aupzvud502/0411:45 Pain Scale: Bmcwwpp964:43 Pain Scale: AdulttlmMDM:04/320:34 Patient medically screened.416:41 Data reviewed: vital signs, nurses notes, lab test result(s). ED course:Patient ck7bwhsnmzb stable in the ER. Patient here for mental health evaluation as above.Case isendorsed to Dr. Rajan at change of shift pending PSA evaluation disposition.Patient ismedically clear and has been cooperative..07:32 Data reviewed: lab test result(s), CBC, drug level(s), acetaminophen,alcohol, mz9lsrbebjosv, electrolytes, hepatic panel, urinalysis, urine drug screen,COVID-19.Transition of care: Care assumed from Nils Argueta MD.16:06 ED course: Patient being recommended for discharge home by Dr. Patten with adiagnosis of cf0xeygnheujc.04/320:39 Order name: Acetaminophen Level; Complete Time: ::39 Order name: CBC with diff; Complete Time: 07:12tn490:33 Interpretation: Abnormal: WBC 11.79; Mild leukocytosis.:39 Order name: CMP; Complete Time: ::39 Order name: COVID-19 PROFILE+LAB; Complete Time: ::39 Order name: ETOH; Complete Time: :0:39 Order name: Glucose; Complete Time: 07:28bc2097:32 Interpretation: Within normal limits.rf210/0320:39 Order name: Salicylate Level; Complete Time: 21:0:39 Order name: Triage - Drug Screen; Complete Time: ::39 Order name: UA; Complete Time: ::39 Order name: Urine HCG Qualitative; Complete Time: 21::39 Order name: Diet - Mental Health Tray (call dietary); Complete Time:23:49 :39 Order name: Belongings List; Complete Time: 05::39 Order name: Document Weight and Height for BMI; Complete Time: 23::39 Order name: Mental Health Evaluation; Complete Time: ::39 Order name: Mental Health Level 3; Complete Time: 23::39 Order name: VS q shift; Complete Time: 23:1:49 Order name: Medically Cleared for Eval by-Psychosocial, Theater Technician (.PSA)gv7Rgyqtngph Medications:04/322:16 Drug: Ibuprofen 600 mg [ibuprofen 600 mg tablet (1 tabs)] Route: PO;kk223:48 Follow up: Pain 3/10 Rrqnluv269/0410:16 Drug: Propranolol 10 mg Route: PO;ef110:46 Follow up: Response: No adverse mawlqpkjio638:16 Drug: sertraline 50 mg Route: PO;ef110:46 Follow up: Response: No adverse dhdovsgiev471:16 Drug: Topiramate 75 mg Route: PO;ef110:45 Follow up: Response: No adverse :16 Drug: Loratadine 10 mg Route: PO;ef110:45 Follow up: Response: No adverse :17 Drug: ARIPiprazole 10 mg Route: PO;ef110:46 Follow up: Response: No adverse tzihwgfmrb987:45 Drug: Acetaminophen Tablet 650 mg Route: PO;ef111:45 Follow up: Pain 0/10 Uxchsap7Dwfguxglgt:Disp Zakia Buchanan RN RN ec8RpjhlhtNils Argueta MD MD pj0DyulvFortunato humphrey RN RN ki4IhtwlpimAmi Medrano RN JOSE LUIS fi5KiaoiSantiago betts MD MD rf2 Name Value Range Interpretation Code Description Data Stephanie rce(s) Supporting Document(s) ID Date Data Source [id number] 04/14/2021 04:43:00 PM EDT [facility] Nurse's NotesClaxCay[facility] Medical Tootie terName: Yareli DuvallAge: 20 yrsSex: FemaleDOB: 2000MRN: [id number] Date: 04/13/2021Time: 20:28Account#: [id number] 1Polga SMITH: NONE, - Per PatientDiagnosis: Major depressive disorder, recurrent, unspecifiedPresentation:04/320:29 Presenting complaint: Patient states: [facility] wg8Mvqcmnv to this ED by [facility]. Patient reports that she escaped from the [facility]. International Travel Fever No. Coronavirus Screening: Have you beendiagnosed with COVID-19 in the past 30 days? no Are you currently on quarantinebyPublic Health? no Flu-like symptoms reported in the last 14 days: no. Have youhadclose contact with confirmed or suspected COVID-19 case? no Do you live in asettingwhere a large of amount of people live, such as [facility], family care,[facility], etc?yes. Have you traveled to a location with widespread or ongoing COVID-19communityspread or outside of [facility]? no Have you traveled internationally or hadcontact withsomeone that has traveled and has been ill in the past 3 weeks? no Have youreceivedthe COVID vaccine? Yes Sophia x 1 dose. Communicable Disease Screen: Negativeforfever>/= 100 degrees Fahrenheit. Communicable disease screen is negative. (-)rash orunusual skin lesion (-) travel/contact with traveler (-) respiratory symptoms.Communication Speaks Hungarian? Yes, is preferred language.20:29 Acuity: Triage 8ys795:29 Method Of Arrival: Bhkmkqbz124:30 Acuity Assignment: Triage 7sm8Lgjpoc Assessment:20:31 General: Appears in no apparent distress, [...] 400 mg intramuscular suspension,extended release syringe 400 zicaipp82 days3. ibuprofen 400 mg Oral tablet 1 [...] threats or abuse. Denies injuries from another.Nutritional qm2uypekdrrm: No deficits noted. Offer of HIV testing: [...] appears in no apparent distress at this time.oo7Jyjbesfurnin:04/322:01 Mental health consult is initiated at 22:01.sm822:12 SAFE Act Report Not Completed. Intervention: Observation Level 3.Referral Information: pm1Eqyvgeofqq referral is generated by a police agency: [facility]. The patient wasreferred forevaluation because suicidal ideations.22:23 Subjective: The patients chief complaint is Pt presents [facility] the [facility] qm0uiddscrlp. As PSA was going into her room pt was tapping her head off the wall.Pt wasdischarged from our unit on Wednesday (04/11), she then went to [facility] late Wednesday night. Pt had walked out of [facility] and [facility] [...] has a long history of mental [facility]althtreatment [facility]. She has a history of Anxiety, Bipolar, Depression, andBPD. Pt hasa history of reported suicide attempts by overdosing. Pt denies hallucinations.Pt doesnot present with any delusional thoughts. Delusions are denied, Hallucinationsaredenied. Patient's mood is depressed, Having thoughts of suicide. Deniessuicidal plan.homicide: denies plan. Homicidal thoughts directed towards mother.22:30 Narrative PSA spoke to Dulce at [facility] ([phone]). She states that itis "the same sm8old thing" as to why the pt is in the ED. She states that the pt was dischargedfromour unit then went to [facility] ED for suicidal ideations. She states that thept madeit back to them in scrubs and stated that she asked [facility] what wouldhappen if shewalked out which they told her that they would have to call the police. Policethenshowed up at [facility] and brought her to us.22:33 Patient reports history of anxiety, Bipolar Disorder, Depression, self-mutilation, gh9dssulih attempt: pt reports multiple by overdosing Mental Health Admissions:multipletimes at multiple facilities Current Outpatient Mental Health Services:[facility]iat[facility] [place]. Living Environment: Family / HomeSupport[facility] currently lives in a [facility]. The patient is single. Detox /RehabAdmissions: None. Current Outpt Alcohol or Substance Abuse Services: None.22:34 Patient presents to Emergency Department with the following symptomswithin the past 2 wz0apjdq: suicidal ideation with no plan. Patient presents [...] patient status is not currently needed orappropriate. md3Qrgxeofnzaob: Psych MD informed of patient's status at 22:30, ED MD notified ofpatients status at 22:46. Disposition: Medically cleared for disposition by Meet.Psychiatric Consult is performed by phone with Dr David Gray-HILDA The patientis to betransferred to bed availability facility. Legal Status: Patient's legal statuswi beDirectory of [facility] Services: 9.37. Commitment papers are completed. DSM-VDX [place] Idiagnosis: Depression, Unspecified. Insurance Pre-Certification: Not Required.IMHUAdmission [...] Awaiting referral hospitalacceptance.The patient is not a tire servicer or dependent. [place] SuicideSeverityRating Scale: Suicidal Ideation Rating 2; Intensity of Ideations Rating 23;SuicidalBehavior Rating 0.04/416:02 Narrative Pt will be discharged home per Dr. Patten. Pt can contract [facility] and denies am11SI/HI. Pt will follow up with outpatient services. Pt provided contactinformation forPSA and [employer]. Pt will come to the ED if problems continue or worsen.Psych:04/320:50 Subjective: Delusions are denied, Hallucinations are denied Havingthoughts of suicide. mu6Elugyx suicidal plan. Objective: Patient is cooperative, Speech [...] 53.26 (149.69 kg, 167.64 cm)jw523:48 Pain Scale: Odysclb469/0411:45 Pain Scale: Ddzmzhi677:43 Pain Scale: AdulttlmED Course:04/320:29 Patient arrived in [...] Physician role handed off by Nils Argueta, AXtc224:32 Santiago Rajan MD is Attending Physician.rf208:16 Diet tray given.gd5Hpfbeoweycfc Medications:04/322:16 Drug: Ibuprofen 600 mg [ibuprofen 600 mg tablet (1 tabs)] Route: PO;kk223:48 Follow up: Pain 3/10 Feaknnk638/0410:16 Drug: Propranolol 10 mg Route: PO;ef110:46 Follow up: Response: No adverse olhfxnrgau361:16 Drug: sertraline 50 mg Route: PO;ef110:46 Follow up: Response: No adverse zqpobwvjsa462:16 Drug: Topiramate 75 mg Route: PO;ef110:45 Follow up: Response: No adverse uywjotjojc288:16 Drug: Loratadine 10 mg Route: PO;ef110:45 Follow up: Response: No adverse gdlwqytwjp457:17 Drug: ARIPiprazole 10 mg Route: PO;ef110:46 Follow up: Response: No adverse hymssmsiqz172:45 Drug: Acetaminophen Tablet 650 mg Route: PO;ef111:45 Follow up: Pain 0/10 Qqlupbq9Dnmfsva:16:06 Discharge ordered by .rf216:43 Condition: stable.tlm16:43 Discharge inst ructions given to patient, Instructed on dischargeinstructions, followup and referral plans. Demonstrated understanding of instructions.16:43 Discharge Assessment: Patient awake, alert and oriented x 3. Nocognitive and/orfunctional deficits noted. Patient verbalized understanding of dispositioninstructions. Patient verbalized understanding of disposition instructions.Patient hasno functional deficits.16:43 Patient left the ED.tlmSignatures:Magaly Gray, RN RN tlmKnightZakia RN RN cd2ZuynsjkNils Argueta MD MD fw8CklocFortunato humphrey RN RN nx5NgrdodmcAmi arthur RN JOSE LUIS zy8JjrfIna Jack am11MeasUsha apple gp4YpnwqSantiago betts MD MD cr2Veiwswxrmte: (The following items were deleted from the [...] Pt presents to the EDby [employer] for ei1hukgmowf ideations. A s PSA was going into her room pt was tapping her head offthewall. Pt was discharged from our unit on Wednesday (04/11), [facility]. Pt had walked out of [facility] back to [facility] where the police picked her up [...] rce(s) Supporting Document(s) ID Date Data Source [id number] 04/12/2021 04:52:00 AM EDT [facility] Name Value Range Interpretation Code Description Data Stephanie rce(s) Supporting Document(s) Sodium 138 mmol/L 136-145 Normal (applies to non-numeric resul ts) [facility] Potassium 3.5-5.1 Normal (applies to non-numeric resul ts) [facility] Chloride 102 mmol/L 98-107 Normal (applies to non-numeric resul ts) [facility] Carbon Dioxide CO2 21-32 Normal (applies to non-numer ic results) [facility] Anion Gap 5.0-16.0 Normal (applies to non-numeric resul ts) [facility] BUN 13 mg/dL 7-18 Normal (applies to non-numeric results) [facility] Creatinine,Serum 0.7-1.2 Normal (applies to non-numeric results) [facility] GFR >60 Normal (applies to non-numeric results) [facility] Glucose Level 97 mg/dL 60-99 Normal (applies to non-numeric re sults) [facility] Reference range is only applicable when patient is fasting Note the following drug interference: Sulfasalazine Sulfapyridine Can see falsely depressed Can see falsely elevated result with up to 17% results with up to 11% decrease in measurement increase in measurement Recommend patients be collected for this test prior to administration of either drug. Calcium 8.5-10.1 Normal (applies to non-numeric resul ts) [facility] Bilirubin,Total 0.1-1.9 Normal (applies to non-numeric results) [facility] SGOT(AST) 30 U/L 15-37 Normal (applies to non-numeric resul ts) [facility] Note the following drug interference: Sulfasalazine Sulfapyridine Can see falsely depressed Can see falsely elevated result with up to 10% results with up to 10% decrease in measurement increase in measurement Recommend patients be collected for this test prior to administration of either drug. SGPT(ALT) 54 U/L 12-78 Normal (applies to non-numeric resul ts) [facility] Note the following drug interference: Sulfasalazine Sulfapyridine Can see falsely depressed Can see falsely elevated result with up to 29% results with up to 10% decrease in measurement increase in measurement Recommend patients be collected for this test prior to administration of either drug. Alkaline Phosphatase 130 U/L 38-126 Above high normal [facility] can increase Alkaline Phosp le vels up to 2 times the normal adult value. Normal values for children and adolescents are 2 to 3 times the normal adult value. Total Protein 6.0-8.2 Above high normal [facility] Albumin Level 3.4-5.0 Normal (applies to non-numeric re sults) [facility] ID Date Data Source [id number] 04/12/2021 04:52:00 AM [facility] Value Range Interpretation Code Description Data Stephanie rce(s) Supporting Document(s) Acetaminophen 10.0-30.0 Below low normal [facility] ID Date Data Source [id number] 04/12/2021 04:52:00 AM EDT [facility] Name Value Range Interpretation Code Description Data Stephanie rce(s) Supporting Document(s) Magnesium 1.8-2.4 Normal (applies to non-numeric resul ts) [facility] ID Date Data Source [id number] 04/12/2021 04:52:00 AM [facility] Value Range Interpretation Code Description Data Stephanie rce(s) Supporting Document(s) Troponin I 0.000-0.056 Normal (applies to non-numeric resu lts) [facility] ID Date Data Source [id number] 04/12/2021 04:52:00 AM [facility] Value Range Interpretation Code Description Data Stephanie rce(s) Supporting Document(s) Salicylate 2.8-20.0 Below low normal [facility] ID Date Data Source [id number] [facility] Interpretation Code Description Data Stephanie rce(s) Supporting Document(s) Ethanol Less than 10.0 Normal (applies to non-numeric r esults) [facility] ID Date Data Source [id number] 04/12/2021 04:23:00 AM EDT [facility] Name Value Range Interpretation Code Description Data Stephanie rce(s) Supporting Document(s) White Blood Count 3.5-10.5 Normal (applies to non-numeri c results) [facility] Red Blood Count 3.90-5.00 Normal (applies to non-numeric results) [facility] Hemoglobin 12.0-15.5 Normal (applies to non-numeric resul ts) [facility] Hematocrit 34.9-44.5 Normal (applies to non-numeric resul ts) [facility] Mean Corpuscular Volume 81.2-95.1 Normal (applies to non- numeric results) [facility] Mean Corpuscular Hgb 25.6-32.2 Normal (applies to non-num deena results) [facility] Mean Corpuscular Hgb Conc 32.0-36.0 Normal (applies to no n-numeric results) [facility] Red Cell Distribution Width 11.9-15.5 Normal (appli es to non-numeric results) [facility] Platelet Count 306 x10 3/uL 150-450 Normal (applies to non-numeric results) [facility] Mean Platelet Volume 9.4-12.4 Normal (applies to non-num deena results) [facility] Neutrophils% (Auto) 31.0-71.0 Normal (applies to non-nume frank results) [facility] Lymphocytes% (Auto) 20.0-55.0 Normal (applies to non-nume frank results) [facility] Monocytes% (Auto) 4.0-12.0 Normal (applies to non-numeri c results) [facility] Eosinophils% (Auto) 1.0-8.0 Normal (applies to non-nume frank results) [facility] Basophils% (Auto) 0.0-2.0 Normal (applies to non-numeri c results) [facility] Immature Granulocytes% (Auto) 0.0-2.0 Normal (alexander lies to non-numeric results) [facility] Neutrophils# (Auto) 1.50-6.20 Above high normal [facility] Lymphocytes# (Auto) 1.20-4.00 Normal (applies to non-nume frank results) [facility] Monocytes# (Auto) 0.00-0.90 Normal (applies to non-numeri c results) [facility] Eosinophils# (Auto) 0.00-0.50 Normal (applies to non-nume frank results) [facility] Basophils# (Auto) 0.00-0.20 Normal (applies to non-numeri c results) [facility] Immature Granulocytes# (Auto) 0.00-7.00 No rmal (applies to non-numeric results) [facility] ID Date Data Source [id number] 04/12/2021 03:50:00 AM EDT [facility] Name Value Range Interpretation Code Description Data Stephanie rce(s) Supporting Document(s) Respiratory specimen severe acute respir atory syndrome coronavirus 2 (SARS-CoV-2) RNA Not Detected [facility] This lab was ordered by [facility] and reported by . ID Date Data Source [id number] 04/12/2021 05:08:00 AM EDT [facility] Name Value Range Interpretation Code Description Data Stephanie rce(s) Supporting Document(s) RP Internal Control Passed Normal (applies to non-nume frank results) [facility] Adenovirus None Detect Normal (applies to non-numeric resu lts) [facility] Coronavirus 229E None Detect Normal (applies to non-numeri c results) [facility] Coronavirus HKU1 None Detect Normal (applies to non-numeri c results) [facility] Coronavirus NL63 None Detect Normal (applies to non-numeri c results) [facility] Coronavirus OC43 None Detect Normal (applies to non-numeri c results) [facility] SARS-CoV-2 Not Detect Normal (applies to non-numeric resul ts) [facility] Negative results do not preclude SARS-Co V-2 infection and should not be used as the sole basis for treatment or other patient management decisions. Negative results must be combined with clinical observations, patient history, and epidemiological information. Testing was performed using the [employer] real-time nested multiplexed PCR Respiratory Panel 2.1 [...] Detect Normal (applies to non-n umeric results) [facility] Rhino/Enterovirus None Detect Normal (applies to non-numer ic results) [facility] Influenza A None Detect Normal (applies to non-numeric res ults) [facility] Influenza B None Detect Normal (applies to non-numeric res ults) [facility] Parainfluenza Virus 1 None Detect Normal (applies to non-n umeric results) [facility] Parainfluenza Virus 2 None Detect Normal (applies to non-n umeric results) [facility] Parainfluenza Virus 3 None Detect Normal (applies to non-n umeric results) [facility] Parainfluenza Virus 4 None Detect Normal (applies to non-n umeric results) [facility] Respiratory Syncytial Virus None Detect Norm al (applies to non-numeric results) [facility] Bordetella Parapertussis None Detect Normal (applies to non-numeric results) [facility] Bordetella Pertussis None Detect Normal (applies to non-nu meric results) [facility] Chlamydia Pneumoniae None Detect Normal (applies to non-nu meric results) [facility] Mycoplasma Pneumoniae None Detect Normal (applies to non-n umeric results) [facility] Methodology: Multiplexed PCR Refer ence Range: None detected ID Date Data Source [id number] 04/12/2021 04:42:00 AM [facility] Collected By: Nurse Initials: cs Time Collected: 324 Collected By: Nurse Initials: cs Time Collected: 324 Name Value Range Interpretation Code Description Data Stephanie rce(s) Supporting Document(s) Color,Urine Colorl-Dk Y Normal (applies to non-numeric res ults) [facility] Clarity,Urine Clear [facility] Specific Randle,Urine 1.005-1.030 Normal (applies to non- numeric results) [facility] pH,Urine 5.0-8.0 Normal (applies to non-numeric resul ts) [facility] Protein,Urine Negative [facility] Glucose,Urine Negative Normal (applies to non-numeric re sults) [facility] Ketones,Urine Negative [facility] Blood,Urine Negative Normal (applies to non-numeric resu lts) [facility] Bilirubin,Urine Negative Normal (applies to non-numeric results) [facility] Urobilinogen,Urine 0.2-1.0 Normal (applies to non-numer ic results) [facility] Leukocyte Esterase,Urine Negative Normal (applies to non -numeric results) [facility] Nitrite,Urine Negative Normal (applies to non-numeric re sults) [facility] ID Date Data Source [id number] 04/12/2021 04:42:00 AM [facility] Collected By: Nurse Initials: cs Time Collected: 324 Collected By: Nurse Initials: cs Time Collected: 324 Name Value Range Interpretation Code Description Data Stephanie rce(s) Supporting Document(s) RBC,Urine None Seen Normal (applies to non-numeric resul ts) [facility] WBC,Urine None Seen [facility] Casts,Urine None Seen Normal (applies to non-numeric resu lts) [facility] Squamous Cells,Urine None Seen [facility] Amorphous Sediment,Urine None Seen [facility] Bacteria,Urine None Seen [facility] ID Date Data Source [id number] 04/12/2021 04:32:00 AM EDT [facility] Name Value Range Interpretation Code Description Data Stephanie rce(s) Supporting Document(s) UDS Benzodiazepines Screen Negative Normal (applies to n on-numeric results) [facility] UDS Cocaine Screen Negative Normal (applies to non-numer ic results) [facility] UDS Ampetamine Screen Negative Normal (applies to non-nu meric results) [facility] UDS Cannabinoids Screen Negative Normal (applies to non- numeric results) [facility] UDS Opiates Screen Negative Normal (applies to non-numer ic results) [facility] UDS Barbiturates Screen Negative Normal (applies to non- numeric results) [facility] Threshold Levels Benzodiazepine 200 ng/mL Cocaine 300 ng/mL Amphetamines 1000 ng/mL Cannabinoids (THC) 50 ng/mL Opiates 300 ng/mL Barbiturates 200 ng/mL All positive findings are presumptive and unconfirmed. Confirmation of positive results are performed only at request of provider. Unconfirmed results must not be used for non-medical purposes (i.e. preemployment and legal purposes) ID Date Data Source [id number] 04/11/2021 01:49:00 PM EDT [address] DISCHARGE SUMMARYPATIENT NAME: YARELI HATCH MR#: [id number] PHYSICIAN: BOGDAN MACIAS MDAUTHOR: Colleen SMITH,Bogdan DATE: 04/09/21 #: [id number] DATE: 04/11/21HistoryIdentificationThis is a 24-rtlfg-rrm white female.Chief Complaint"I am having suicidal thoughts and anxiety."Reason for AdmissionPatient is well known to us. She presented to the ER with the complaint ofincreased suicidal ideations after an argument with her significant other. Shehas a history of suicidal ideations and multiple inpatient treatment. Patientcannot contract for safety. Hence, she was hospitalized.History of Presenting IllnessPatient was seen today along with the learning and development coordinator, Gloria, and a PAstudent from [facility]. She presented to the ER with [facility] due to patient contacting them stating [...] hasn't beensleeping for 3 weeks.Patient was at [facility] since and transferred to [facility] and discharged. She states that [place] [facility] [place] [facility] [place] [facility] and has been [...] att[place] outpatient [place]. She is on AOT since 01/09/21.Medical HistoryDenies [...] she would prefer to bedischarged back to [facility] as she is no longer feeling [...] She also [facility] that [facility] and she [...] 240Continue taking these medications:IBUPROFEN (IBUPROFEN) 400 MG [id number] MILLIGRAM Orally EVERY 6 HOURS NEEDED as needed for HeadacheQty = 21Loratadine* (Claritin*) 10 MG [id number] MILLIGRAM Orally DAILYDays = 30 Qty = 30PROPRANOLOL HCL (Inderal*) 10 MG FENIRU38 MILLIGRAM Orally TWICE DAILYDays = 30 Qty = 60TOPIRAMATE (TOPAMAX) 25 MG [id number] MILLIGRAM Orally DAILYDays = 60 Qty = 30SERTRALINE (Zoloft*) 50 MG SUKYAL046 MILLIGRAM Orally DAILYDays = 30 Qty = 30MONTELUKAST SODIUM (MONTELUKAST) 10 MG MHOMEO75 MILLIGRAM Orally DAILYDays = 30 Qty = 30Aripiprazole* (Abilify*) 10 MG DGABTR28 MILLIGRAM Orally DAILYPRAZOSIN HCL (PRAZOSIN HCL) 2 MG CAPSULE2 MILLIGRAM Orally AT BEDTIMEOlanzapine* (Zyprexa*) 5 MG TABLET5 MILLIGRAM Orally AT BEDTIMEAripiprazole (Abilify Maintena) 400 MG SUSER.VJE055 MILLIGRAM Intramuscularly Y10QBlj = 1Instructions:last im inj received 04/03/21Discharge Activity: As toleratedDischarge diet: RegularFollow-upFollow up with your Primary care physicianFollow up with therapiest and psychiatristrecommended outpt chemical dependencyReferralsOrdered ReferralsCOMDIGNITY [facility] [address] [phone]) on April 15 at9:[address] Giles.[facility] [place] [address] In person follow up appointment [facility](#[phone]) on April 18 at2:00 pm with Grayson.DATE SIGNED: 04/11/21 Electronically Melaina dTIME SIGNED: 1353 BOGDAN MACIAS MD Name Value Range Interpretation Code Description Data Stephanie rce(s) Supporting Document(s) ID Date Data Source [id number] 04/11/2021 09:25:00 AM EDT [address] [id number] NAME: YARELI HATCH#: [id number] PHYSICIAN: HUBER VELAZQUEZ #: [id number] ADM. DATE: 04/09/21PATIENT : 00 DISCH. DATE: [50}DISCHARGE SUMMARYMHU discharge planNicotine Replacement TherapySmoking Status Current some day smokerPrescribed at discharge Rx offered, pt refusedAlcohol/Drug DisorderAlcohol or Drug Disorder counseling prescribedPersonal Care InstructionsDischarge Activity: As toleratedDischarge diet: RegularFollow Up CareFollow Up:Follow up with your Primary care physicianFollow up with therapiest and psychiatristrecommended outpt chemical dependencyPriority ItemsUrgent/Important items that need to be addressed [facility] care follow-upappointmentDischarge InformationDISCHARGE INFORMATION* Thank you for choosing [facility] and allowing us toserve you* Our Goal is to provide the highest quality of care.* This discharge information is to help you better understand your diagnosisand medication* Avoid taking acjt-qbg-sjlbuhp medicines unless approved by your physician.* Take your medications as prescribed. DO NOT stop any medications unlessapproved first* Weigh yourself daily. Report any gain of 5 lbs in a week* 24 Hour Crisis HOTLINE available: Call Reachout at [phone]* Chem. Dependency: Walk in Clinics [place] ([phone]) and [place] ([phone]) anytime Wednesday thru Wednesday 8 to 10am. [place] ([phone]) anytimeMond thru Wednesday 8 to 10am. [place] ([phone]) Wednesday or Wednesday from 8to 10am (Bring $30 to First [facility]) SMOKIN G CESSATION* Smoking is dangerous to your health. It delays the healing process, andworks against your medications. Not smoking will improve your health* Our hospital participates with the Opt-to-Quit program. You will be contactedafter discharge by the [facility] Smoker's Quitline for support with tobaccocessation. You have the option once contacted to refuse this service.* You can also go online to www.[email or web address]DealerRater. Free nicotine replacementsare available Attention* You should [...] rce(s) Supporting Document(s) ID Date Data Source [id number] 04/10/2021 01:59:[address] PM EDT [address] HEALTH PROGRESS NOTEPATIENT NAME: YARELI HATCH PHYSICIAN: BOGDAN MACIAS, MDAUTHOR: Colleen SMITH,DhruvADM. DATE: 04/09/21 MR#: [id number] NOTE DATE: 04/10/21 RM#: [id number] TIME: 1402 is a 78-jlayt-rzu white female.CC/Hx Present Illness"I am having suicidal thoughts and anxiety."Events Since Last EntryPatient reported that she has been feeling better, she stated that she wouldlike to go back to [facility], she stated that she was dealing [...] rce(s) Supporting Document(s) ID Date Data Source [id number] 04/10/2021 07:18:00 AM EDT [address] HEALTH HISTORY AND PHYSICALPATIENT NAME: YARELI HATCH MR#: [id number] PHYSICIAN: BOGDAN MACIAS MDAUTHOR: Evi SMITH,S. DATE: 04/09/21 RM#: [id number] [...] Home Medication ListAllergiesCoded Allergies:risperidone (08/04/19)ExamVital SignsVital Signs-24 HRS09/850734Eooc 98.8Pulse 80Resp 18B/P 122/65B/P MeanPulse Ox 99O2 DeliveryO2 Flow HjeqGqK9Avwbvzxnya/PlanDiagnosis/Problem1. Major depressive disorderStatus Chronic2. Suicide attemptStatus Acute3. Bipolar affective disorderStatus Chronic4. Bipolar disorder5. Borderline personality disorderStatus Chronic6. Obesity, morbidStatus ChronicDATE SIGNED: 04/10/21 Deann garcia SignedTIME SIGNED: 731 DORI KENNEDY MD Name Value Range Interpretation Code Description Data Stephanie rce(s) Supporting Document(s) ID Date Data Source [id number] 04/09/2021 04:05:00 PM EDT [address] PSYCHIATRIC ASSESSMENTPATIENT NAME: YARELI HATCH MR#: [id number] PHYSICIAN: BOGDAN MACIAS MDAUTHOR: Surendra SMITH,P. DATE: 04/09/21 #: [id number]his is a 25-vjrgv-isn white female.Chief Complaint"I am having suicidal thoughts and anxiety."Reason for AdmissionPatient is well known to us. She presented to the ER with the complaint ofincreased suicidal ideations after an argument with her significant other. Shehas a history of suicidal ideations and multiple inpatient treatment. Patientcannot contract for safety. Hence, she was hospitalized.History of Presenting IllnessPatient was seen today along with the learning and development coordinator, Gloria, and a PAstudent from [facility]. [facility] stating with [...] hasn't beensleeping for 3 weeks.Patient was at [facility] since and transferred to [facility] and discharged. She states that she [facility] [place] [facility] and[facility] there and has been [...] att[place] outpatient [place]at [place]. She is on AOT since 01/09/21.Medical HistoryDenies [...] rce(s) Supporting Document(s) ID Date Data Source [id number] 04/09/2021 07:55:00 AM [facility] Name Value Range Interpretation Code Description Data Stephanie rce(s) Supporting Document(s) LCOVID-19, CORDELL NEGATIVE [facility] This lab was ordered by [facility] and reported by [facility]. ID Date Data Source [id number] 04/09/2021 08:19:00 AM EDT [facility] Name Value Range Interpretation Code Description Data Stephanie rce(s) Supporting Document(s) COVID-19, CORDELL NEGATIVE NEGATIVE N [facility] Methodology: Isothermal Nucleic Acid Amp [...] Emergency Use Authorization. ID Date Data Source [id number] 04/08/2021 11:32:00 PM EDT [facility] Name Value Range Interpretation Code Description Data Stephanie rce(s) Supporting Document(s) SALICYLATE < 1.7 mg/dL 0.0-20.0 [facility] ID Date Data Source [id number] 04/08/2021 11:32:00 PM EDT [facility] Name Value Range Interpretation Code Description Data Stephanie rce(s) Supporting Document(s) ACETAMINOPHEN < 2.0 ug/mL 0-30 [facility] ID Date Data Source [id number] 04/08/2021 11:32:00 PM EDT [facility] Name Value Range Interpretation Code Description Data Stephanie rce(s) Supporting Document(s) ETOH 0.004 g/dL NONE DETECTED H [facility] ID Date Data Source [id number] 04/08/2021 11:32:00 PM EDT [facility] Name Value Range Interpretation Code Description Data Stephanie rce(s) Supporting Document(s) GLU 100 mg/dL 70-110 [facility] Patients taking Sulfasalazine may have f alsely depressedGlucose levels. Patients taking Sulfapyridine may havefalsely elevated Glucose levels. Patients should be drawnfor Glucose before the initial administration of eitherdrug. BUN 12 mg/dL 7-23 [facility] CRE 0.644 mg/dL 0.500-1.300 [facility] GFR > 60 mL/min [facility] CHLORIDE 111 mmol/L 99-110 [facility] NA 142 mmol/L 136-147 [facility] POTASSIUM 3.9 mmol/L 3.5-5.1 [facility] TCO2 28 mmol/L 20-33 [facility] ANION GAP 6.9 10.0-20.0 [facility] CA 8.4 mg/dL 8.3-10.7 [facility] ALKALINE PHOS 124 U/L 45-117 [facility] TP 7.4 g/dL 6.0-7.8 [facility] ALB 3.5 g/dL 3.5-5.0 [facility] ESRD Dialysis patient Albumin reference range: 2.9-4.4 g/dL GL 3.9 g/dL 2.3-3.5 [facility] A/G 0.9 1.0-2.5 [facility] T. BILIRUBIN 0.2 mg/dL 0.1-1.1 [facility] [employer] [place] Total Bilirubin is n ot recommended forpatients undergoing treatment with eltrombopag (Promacta)due to the potential for falsely elevated results. ALTI 55 U/L 6-54 H [facility] Patients taking Sulfasalazine and/or Sul fapyridine may havefalsely depressed ALT levels. Patients should be drawn forALT before the initial administration of either drug. AST 31 U/L 6-38 [facility] Patients taking Sulfasalazine and/or Sul fapyridine may havefalsely depressed AST levels. Patients should be drawn forAST before the initial administration of either drug. ID Date Data Source [id number] 04/08/2021 11:05:00 PM EDT [facility] Name Value Range Interpretation Code Description Data Stephanie rce(s) Supporting Document(s) WBC 8.86 x10E3/uL 4.0-10.5 [facility] RBC 4.27 x10E6/uL 4.20-5.40 [facility] Hemoglobin 12.5 g/dL 12.0-16.0 [facility] Hematocrit 38.3 % 37.0-47.0 [facility] MCV 89.7 fL 81.0-99.0 [facility] MCH 29.3 pg 27.0-31.0 [facility] MCHC 32.6 g/dL 32.7-35.6 [facility] RDW 12.1 % 11.5-14.0 [facility] Platelet count 266 x10E3/uL 150-450 [facility] ital MPV 9.6 fl 6.9-9.5 [facility] Neutrophils 57.4 % 34-64 [facility] Lymphocytes 32.3 % 25-45 [facility] Monocytes 7.8 % 1.7-10.6 [facility] Eosinophils 1.7 % 0.4-7.0 [facility] Basophils 0.3 % 0.1-2.0 [facility] Imm. Gran. 0.5 % 0.1-2.0 [facility] Abs. Neutro. 5.09 x10E3/uL 1.2-7.6 [facility] Abs. Lymph. 2.86 x10E3/uL 1.0-3.5 [facility] Abs. [place]. 0.69 x10E3/uL 0.1-1.0 [facility] Abs. Eosin. 0.15 x10E3/uL 0.1-0.7 [facility] Abs. Baso. 0.03 x10E3/uL 0.0-0.1 [facility] Abs. Imm. Gran. 0.04 x10E3/uL 0.0-0.1 [facility] spital ANRBC% 0 % 0 [facility] ID Date Data Source [id number] 04/08/2021 11:56:00 PM EDT [facility] Name Value Range Interpretation Code Description Data Stephanie rce(s) Supporting Document(s) PCP VISTA NEG NEGATIVE [facility] MINIMUM LEVEL OF DETECTION IS 25 ng/ml BENZODIAZEPINES NEG NEGATIVE [facility] al MINIMUM LEVEL OF DETECTION IS 200 ng/ml COCAINE VISTA NEG NEGATIVE [facility] MINIMUM LEVEL OF DETECTION IS 300 ng/ml AMPHETAMINES NEG NEGATIVE [facility] al MINIMUM LEVEL OF DETECTION IS 1000 ng/ml BARBITURATES NEG NEGATIVE [facility] al CUTOFF CONCENTRATION IS 200 ng/ml CANNABINOIDS NEG NEGATIVE [facility] al CUTOFF CONCENTRATION IS 50 ng/ml METHADONE VISTA NEG NEGATIVE [facility] al MINIMUM LEVEL OF DETECTION IS 300 ng/ml OPIATE VISTA NEG NEGATIVE [facility] MINIMUM DETECTION LEVEL IS 300 ng/ml ID Date Data Source [id number] 04/08/2021 11:30:00 PM EDT [facility] Name Value Range Interpretation Code Description Data Stephanie rce(s) Supporting Document(s) URINE COLOR Yellow [facility] UAPR Turbid [facility] UGLU Negative NEGATIVE [facility] URINE BILIRUBIN Negative NEGATIVE [facility] al UKET Negative NEGATIVE [facility] USG 1.021 1.010-1.025 [facility] UBLO Negative NEGATIVE [facility] UpH 8.5 5.0-8.0 [facility] UPRO Trace Negative [facility] UUB 1.0 mg/dL 0.2-1.0 [facility] UNIT Negative Negative [facility] ULEU Trace Negative [facility] ID Date Data Source [id number] 04/08/2021 11:30:00 PM EDT [facility] Name Value Range Interpretation Code Description Data Stephanie rce(s) Supporting Document(s) URINE RBC 0-2 RBCs/HPF NONE SEEN [facility] URINE WBC 3-5 WBCs/HPF NONE SEEN [facility] URINE BACTERIA Few NONE SEEN [facility] l URINE EPI. Many NONE SEEN [facility] URINE CRYSTAL MANY AMORPHOUS NONE SEEN [facility] pital ID Date Data Source [id number] 04/08/2021 11:30:00 PM EDT [facility] [place] Name Value Range Interpretation Code Description Data Stephanie rce(s) Supporting Document(s) HCG QUAL URINE Negative [facility] ID Date Data Source [id number] 04/09/2021 04:09:00 PM EDT [facility] Physician DocumentationClaxlexy-Naveen Hinkle edical CenterName: Yareli Mejiage: 20 yrsSex: FemaleDOB: 2000MRN: [id number] Date: 04/08/2021Time: 22:26Account#: [id number] Xfpm4Ohlaark MD: NONE, - Per PatientED Physician Santiago RajanDiszach Summary:04/09/21 12:49Hospitalization OrderedHospitalization Status: Inpatient Oyeqsombceb0Aohuudyg: Anjel Oneillmrf2Location: Mental Health Afgaab6Kzvhjfvis: Rsighbum4Xlzcgbv: an acute iiocdrouarkhou4Utlxyidr: are mbmoxzcjdya1Lqzt Assignment:mn8Afimnhxbc- Major depressive disorder, recurrent, jnrwahbjupczm4Wbcbfcebqk Information- Admission Type: Inpatient Status.op5Sejvc:- Medication Reconciliationrf2- SBARrf2- Medication Reconciliation Form - 2nd Copyrf2- Psych. YPEGef9WRV:03/2906:59 This 20 yrs old White Female presents to ER via Police with complaints ofPsych Problem.br07:19 20-year-old female with extensive psychiatric history of bipolar ADHDanxiety brdepression presents complaints of increasing suicidal ideation after argumentwithsignificant other. 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 prazosin 2 mg Oral capsule 1 cap every day at bedtime2. Zyprexa 5 mg Oral tablet 1 tab nightly3. montelukast 10 mg oral tablet 1 tab daily4. topiramate 75mg oral tablet daily5. aripiprazole 10 mg oral tablet 1 tab daily6. aripiprazole 400 mg intramuscular suspension,extended release syringe 400 yqxhzim16 days7. sertraline 50 mg oral tablet 1 [...] Temp 97.3; Pulse Ox 98% on R/A; Wwbzct219.33 kg (R); ro2Owasjy 5 ft. 6 in. ; Pain 0/10;03/2908:38 BP 123 / 77; Pulse 66; Resp 18; Temp 97(TE); Pulse Ox 98% on R/A;sw215:20 BP 126 / 70 (auto/); Pulse 70 MON; Pul se Ox 97% ;ef109/2821:31 Body Mass Index 37.12 (104.33 kg, 167.64 cm)kk:31 Pain Scale: Prwrrpu9ZEA:03/2822:45 Patient medically screened.br6:53 Transition of care: Care assumed from Zeeshan Grover MD.rf206:54 Data reviewed: vital signs, nurses notes, lab test result(s), CBC, druglevel(s), tb3xrsxkxzworsdf, alcohol, salicylate, electrolytes, hepatic panel, urinalysis,urine drugscreen. ED course: Patient is medically cleared and pending PSA evaluation.03/2822:38 Order name: Acetaminophen Level; Complete Time: 06:99un519:38 Order name: CBC with diff; Complete Time: 06:49ol7982821:38 Order name: CMP; Complete Time: 06::38 Order name: COVID-19 PROFILE+LAB; Complete Time: 08::38 Order name: ETOH; Complete Time: 06::38 Order name: Glucose; Complete Time: 06::53 Interpretation: Within normal limits.rf:38 Order name: Salicylate Level; Complete Time: 06:92qa722:38 Order name: Triage - Drug Screen; Complete Time: 06:98ai513:38 Order name: UA; Complete Time: 06:86ce293:38 Order name: Urine HCG Qualitative; Complete Time: 06::38 Order name: Diet - Mental Health Tray (call dietary); Complete Time:00::38 Order name: Belongings List; Complete Time: 15::38 Order name: Document Weight and Height for BMI; Complete Time: ::38 Order name: Mental Health Evaluation; Complete Time: 06:89fy348:38 Order name: Mental Health Level 3; Complete Time: ::38 Order name: VS q shift; Complete Time: ::54 Order name: Medically Cleared for Eval by-Psychosocial, Theater Technician (YE);Complete Time: :27Dispensed Medications:08:37 Drug: sertraline 50 mg [sertraline 50 mg tablet (1 tabs)] Route: PO;: Follow up: Response: No adverse lswjewjmfy840:37 Drug: Topiramate 75 mg [topiramate 25 mg tablet (3 tabs)] Route: PO;: Follow up: Response: No adverse iipgfwltdg849:38 Drug: ARIPiprazole 10 mg [aripiprazole 10 mg tablet (1 tabs)] Route: PO;:22 Follow up: Response: No adverse tbbmnhyxrl630:38 Drug: Loratadine 10 mg [loratadine 10 mg tablet (1 tabs)] Route: PO;: Follow up: Response: No adverse cfueydrewu875:38 Drug: Montelukast 10 mg Route: PO;: Follow up: Response: No adverse srzopsjamo059:38 Drug: Propranolol 10 mg [propranolol 10 mg tablet (1 tabs)] Route: PO;: Follow up: Response: No adverse roman linugft6Loblzoongp:Dispatcher [employer] Fortunato Burrell RN RN jh2PpcbbdcZeeshan Grover MD MD brKelly, Krista, RN RN be5MdryOlivia Barros RN RN wb6EcqwbSantiago betts MD MD pi4XxqqmnpsAmi Medrano RN oi5Knboxwmdyux: (The following items were deleted from the chart)01:16 09/28 22:33 Home Meds: Lexapro 10 mg Oral tablet 1 tab nightly; kk3kk3 Name Value Range Interpretation Code Description Data Stephanie rce(s) Supporting Document(s) ID Date Data Source [id number] 04/09/2021 04:09:00 PM EDT [facility] Nurse's NotesClaxton-Cusset[facility] Tootie terName: Yareli Mejiage: 20 yrsSex: FemaleDOB: 2000MRN: [id number] Date: 04/08/2021Time: 22:26Account#: [id number] Jitendra MD: NONE, - Per PatientDiagnosis: Major depressive disorder, recurrent, unspecifiedPresentation:03/2822:28 Presenting complaint: Patient states: "I am having suicidal thoughts andanxiety.". jk6Wvsheoxocoa Screening: Have you been diagnosed with COVID-19 in the past 30days? noAre you currently on quarantine by Public Health? no Flu-like symptoms reportedin thelast 14 days: no. Have you had close contact with confirmed or suspectedCOVID-19 case?no Do you live in a setting where a large of amount of people live, such [facility], [facility] care, [facility], etc? no. Have you traveled to a location withwidespread orongoing COVID-19 community spread or outside of [facility]? no Have you traveledinternationally or had contact with someone that has traveled and has been illin thepast 3 weeks? no Have you received the COVID vaccine? Yes. Communication SpeaksEnglish? Yes, is preferred language. Language Line Services needed? No Are TDDneeded?No. Best learning method: discussion. Learning barriers: none identified.22:28 Acuity: Triage 5vc182:28 Method Of Arrival: Vyttumse469:29 Presenting complaint: Badge #[id number] from [place] [employer] states patient madesuicidal ux7cnyonndseb and called police to be brought in.22:30 Acuity Assignment: Triage 5ya386:50 International Travel Fever No. Communicable Disease Screen: Negative forfever>/= 100 xt2xoaljnm Fahrenheit. Communicable disease screen is negative. (-) rash orunusual skinlesion (-) travel/contact with traveler (-) respiratory symptoms.Triage Assessment:22:34 General: Appears in no apparent distress, well nourished, well groomed,Behavior is nn3ybopxil, appropriate for age, cooperative, Denies fever, chills. 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 prazosin 2 mg Oral capsule 1 cap every day at bedtime2. Zyprexa 5 mg Oral tablet 1 tab nightly3. montelukast 10 mg oral tablet 1 tab daily4. topiramate 75mg oral tablet daily5. aripiprazole 10 mg oral tablet 1 tab daily6. aripiprazole 400 mg intramuscular suspension,extended release syringe 400 vpywpfn85 days7. sertraline 50 mg oral tablet 1 [...] threats or abuse. Denies injuries from another.Nutritional fr9ldbzlncdc: No deficits noted. Offer of HIV testing: [...] apparent distress at this time. Nochanges from hh9rhsoegsqmm documented assessment. Sitter at bedside. .09:59 Reassessment: Patient appears in no apparent distress at this time. Nochanges from up2wybgxmmbqk documented assessment. Patient sleeping in bed. Sitter at bedside. .10:57 Reassessment: Patient appears in no apparent distress at this time. Nochanges from jk9xinoaxdyxb documented assessment. Patient sleeping. Sitter at bedside. .Psychosocial:04:52 Narrative PSA spoke to Dulce at [facility] ([phone]) who states that thepatient was vv9dphc all day. She states that she was [...] Completed. Interventi on: Observation Level 3.Referral Information: ag5Nkzrclaird referral is generated by a police agency: [employer]. The patient wasreferred forevaluation because patient had voiced suicidal ideations.05:09 Subjective: The patients chief complaint is Pt presents to the ED by [employer].Patient tb6elycxhg feeling suicidal for "a while" now and [...] history of anxiety, Bipolar Disorder, Depression, self-mutilation, lw8Umovw: [employer]. Mental Health Admissions: several. pt was last at [facility] 04/01/21 anddischarged 04/03 Current Outpatient Mental Health Services: [facility] [place] Living Environment: Family / Home Support: poorThepatient currently lives in a [facility] residence. The patient is single. Detox /RehabAdmissions: None. Current Outpt Alcohol or Substance Abuse Services: None.05:16 Patient presents to Emergency Department with the following symptomswithin the past 2 fn6ocbkt: suicidal ideation with plan for jump in [...] patient status is not currently needed orappropriate. hp9Ycyxenvacodt: Psych MD informed of patient's status at 06:00, ED MD notified ofpatients status at 06:34. Disposition: Medically cleared for disposition by [facility].Psychiatric Consult is performed by phone with Dr David STEVENS. DSM-V DX [place] Idiagnosis:Depression, Unspecified. Insurance Pre-Certification: Not Required. IMHUAdmissionCriteria: [...] dosageadjustments. Awaiting. The patient is not a tire servicer or militarydependent.[place] Suicide Severity Rating Scale: Suicidal Ideation Rating 5; IntensityofIdeations Rating 25; Suicidal Behavior Rating 0.Psych:00:00 Subjective: Patient's mood is elevated, Delusions are denied,Hallucinations are denied be6Pikzre thoughts of suicide. Denies suicidal plan. Objective: [...] Temp 97.3; Pulse Ox 98% on R/A; Idaosr830.33 kg (R); sk1Wkzpwp 5 ft. 6 in. ; Pain 0/10;03/2908:38 BP 123 / 77; Pulse 66; Resp 18; Temp 97(TE); Pulse Ox 98% on R/A;sw215:20 BP 126 / 70 (auto/); Pulse 70 MON; Pulse Ox 97% ;ef109/2822:31 Body Mass Index 37.12 (104.33 kg, 167.64 cm)kk309/2822:31 Pain Scale: Sehbkhb0FK Course:03/2822:27 Patient arrived in ED.kk322:27 NONE, - Per Patient is Private Physician.kk322:30 Triage completed.kk322:39 Ratna Barbosa, RN is Primary Nurse.kk322:45 Zeeshan Grover MD is Attending Physician.br23:59 Primary Nurse role handed off by Ratna Barbosa, OIft710:59 Fortunato Mark, RN is Primary Nurse.jw509/2900:00 Patient has correct armband on for positive identification. Bed in lowposition. Sitter jw5at bedside.00:00 No Physician assisted procedures completed.jw502:19 Sitter at bedside.jw503:49 Sitter at bedside.jw505:06 Sitter at bedside.jw506:34 Sitter at bedside.jw506:50 Attending Physician role handed off by Zeeshan Grover, UQaw472:50 Santiago Rajan MD is Attending Physician.rf206:59 Attending Physician role handed off by Santiago Rajan MDbr06:59 Zeeshan Grover MD is Attending Physician.br07:22 Attending Physician role handed off by Zeeshan Grover, LSnp906:22 Santiago Rajan MD is Attending Physician.rf212:48 Brooklyn Oneill MD is Hospitalizing Provider.rf214:54 Primary Nurse role handed off by Fortunato Mark RNXDyh0Seazqscjuivs Medications:08:37 Drug: sertraline 50 mg [sertraline 50 mg tablet (1 tabs)] Route: PO;215:21 Follow up: Response: No adverse lwyjpvppdr941:37 Drug: Topiramate 75 mg [topiramate 25 mg tablet (3 tabs)] Route: PO;215:21 Follow up: Response: No adverse cxlogrsbkx579:38 Drug: ARIPiprazole 10 mg [aripiprazole 10 mg tablet (1 tabs)] Route: PO;215:22 Follow up: Response: No adverse qnmfnizauu890:38 Drug: Loratadine 10 mg [loratadine 10 mg tablet (1 tabs)] Route: PO;215:21 Follow up: Response: No adverse nameopewmt135:38 Drug: Montelukast 10 mg Route: PO;215:21 Follow up: Response: No adverse wizpqiayad251:38 Drug: Propranolol 10 mg [propranolol 10 mg tablet (1 tabs)] Route: PO;215:21 Follow up: Response: No adverse ixbhsdnokr5Oudmxui:12:49 Decision to Hospitalize by Provider.rf215:22 Disposition: Admitted to Psych accompanied by nurse, with chart.ef115:22 Condition: stable, Provider notified of abnormal vital signs.15:22 Discharge instructions given to patient, Instructed on need for admit,Demonstratedunderstanding of instructions.15:22 Discharge Assessment: Patient verbalized understanding of dispositioninstructions.Patient able16:09 Patient left the ED.ir5Opgzvgnviv:Fortunato Mark, RN RN xw3PxaefeukAmi arthur RN RN zr2UifzzplgpAgatha chapa RN JOSE LUIS annwv7GfpcwgwZeeshan Grover MD MD brKelly, Krista RN [facility] mz8DyvfwtdjUsha Adams Sarah, RN RN ys7YbapgSantiago Rajan MD MD hl5Kocniqvpbgu: (The following items were deleted from the chart)01:16 04/08 22:33 Home Meds: Lexapro 10 mg Oral tablet 1 tab nightly; ak1ir031/2905:17 05:14 Patient reports history of anxiety, Bipolar Disorder, Depression,self sm8-mutilation, Other: BPD. Mental Health Admissions: several. pt was last at [facility]/01/21and discharged 04/03 Current Outpatient Mental Health Services: Psychiatrist /Agency:[facility]. Living Environment: Family / Home Support: poor [facility]. The [facility] is [facility]. Detox / Rehab Admissions: None. CurrentOutptAlcohol or Substance Abuse S ervices: None. sm8 Name Value Range Interpretation Code Description Data Stephanie rce(s) Supporting Document(s) ID Date Data Source [id number] 04/08/2021 08:32:18 AM EDT [facility] Name Value Range Interpretation Code Description Data Stephanie rce(s) Supporting Document(s) ED Provider Note [facility] ADWJEh6oSgUQRiSz25/AFNqpDMXil5KhDJwhEQo2EDmtTJCfO1TbZAC6oR8dGBI5PZoZZgTnLuRrUWO6 m [file] == ID Date Data Source [id number] 04/08/2021 08:24:44 AM EDT [facility] Name Value Range Interpretation Code Description Data Stephanie rce(s) Supporting Document(s) Discharge Summary [facility] GYBOYg0sQhJMMhOz50/EYJziUWAlp8OvYGkkHMh4ESmsQTOgP7ZrUIW4xJ2fVOH2AGcGWoZxZqSaFXY7 lbm [file] AgICAgICAgICAgICAgICAgICAgICAgICAgICAgICAgICAgICAgICAgICAgICAgICAgICAgICAgICAgIC AgICAgICAgICAgICAgICAgICAgICAgICAgICAgDQogICAgICAgICAgICAgICAgICAgICAgICAgICAgIC AgICAgICAgICAgICAgICAgICAgICAgICAgICAgICAg ICAgICAgICAgICAgICAgICAgICAgICAgICAgICAgICAgICAgICAgDQogICAgICAgICAgICAgICAgICAg ICAgICAgICAgICAgICAgICAgICAgICAgICAgICAgICAgICAgICAgICAgICAgICAgICAgICAgICAgICAg ICAgICAgICAgICAgICAgICAgICAgDQogICAgICAgIC AgICAgICAgICAgICAgICAgICAgICAgICAgICAgICAgICAgICAgICAgICAgICAgICAgICAgICAgICAgIC AgICAgICAgICAgICAgICAgICAgICAgICAgICAgICAgDQogICAgICAgICAgICAgICAgICAgICAgICAgIC AgICAgICAgICAgICAgICAgICAgICAgICAgICAgICAg ICAgICAgICAgICAgICAgICAgICAgICAgICAgICAgICAgICAgICAgICAgDQogICAgICAgICAgICAgICAg ICAgICAgICAgICAgICAgICAgICAgICAgICAgICAgICAgICAgICAgICAgICAgICAgICAgICAgICAgICAg ICAgICAgICAgICAgICAgICAgICAgICAgDQogICAgIC AgICAgICAgICAgICAgICAgICAgICAgICAgICAgICAgICAgICAgICAgICAgICAgICAgICAgICAgICAgIC AgICAgICAgICAgICAgICAgICAgICAgICAgICAgICAgICAgDQogICAgICAgICAgICAgICAgICAgICAgIC AgICAgICAgICAgICAgICAgICAgICAgICAgICAgICAg ICAgICAgICAgICAgICAgICAgICAgICAgICAgICAgICAgICAgICAgICAgICAgDQogICAgICAgICAgICAg ICAgICAgICAgICAgICAgICAgICAgICAgICAgICAgICAgICAgICAgICAgICAgICAgICAgICAgICAgICAg ICAgICAgICAgICAgICAgICAgICAgICAgICAgDQogIC AgICAgICAgICAgICAgICAgICAgICAgICAgICAgICAgICAgICAgICAgICAgICAgICAgICAgICAgICAgIC WsMDOwRUGpKJPaJVMnVXBkAJYnLKJaUNOmNYNtEDRsIXXcUVHvAJw8D0auVAEsHGMmTE3wORl3Qi2+DQ wIZxPuJKW7hyAobV4YQS0xs9BdGZfgTPHoa9RzPMp6 VW1TLXMaORubXM8VDSenln1WFDKnKBMolKESy0chMzPkHGP8WSYqNmzqAQ8ZBJYyT5kmseXfREIoSRPF IYctBECPZSkjHVHHXHSdSXFnCwJmAhTfTLCzWHBoGQCELUH4NZAjVuHcNGYsDCEzHwBeMGCKRPEwTKTf GmEeLPKeHXJrIzlnXNOSMCQ7MVZsYtQrTYSrPBNqWT 3MKSVhL966ajJnUVOJXy1+NLkgivXyXoxJOgGaDRIwf6CsMWe3HA3ZDKZgMltde8JsKqUnDXJXCNxlOS 3JTWL3KNKsIVMlIq0YBSJkX563mjHqFI4GGr1FScTcEC3fyw6QImAyXGJdRvtCJpk1SYylCL8SwISnBW hJnXAurRYxT0WjS8MnbVJioNQbmZHJUY4zdyLNGS6q P33nDRUAYAFmcNH1ElH8JcJlArRsPZX7FyToZE1uGEenXS7BDNF5BAcmXSBrPKMiT6sZFfArDUWgHDZj tHsvTQ8LBiQnA4FrcmAiaXM2NmTbGAJFKd2+EOpyxoJaWjeUTzX1ZFMdj3NfMGa2OJ4ZXGFzRKkzJW9P MSZunN7kAGauXS3SFeO5EQSrJEZTPaTuB58xhOHvPB i6M7GtClOkIEJoQjsmDYCxAMauOlJgSGUySuKbFXlsKM9+ID4+LNgiIM6SHWkaycRoNADpWv7WBLYhEU IiLQ6bUZMqAITyL0A4eWbwSHRKPvQfL1ytowkoDZ2xWWGtE412gCqphbQyZOAbFQMhRr4DQDHuLIM4VO QehZBhFsKxUPBCOHyqSY5GzEUaJPZ6aC8hWYmxYWLg QWIoT5lJIsDkdGgsQS79vZketrFqvBNmREf+Hk5QKQ5lq0TeQUr1qvFcIScwEUM0ZVeyVGEeTEYiXLSa RFB3STZ8GBVCWdNyXRFaZMPvVDojBLJfHNLego2WVCEdOSN9TIjpRSFgNLBoGDZgAYqbJSYvBIngRlWt UBTnLDFjHC1FSgZmCFEqLHPzJEzoTDMkFMBjti5WPW KsOXVzJQKfBvOhBICtPVAqIWbrNQHnTXK1EYBuFGZbXVQwWJ6CBeTbIHPuBIv4ZETyALTzKNCiyw8XJF LqLSMuFuepDMHgOKUuKAIsBDcqXMEjFKQeSLY4KNKeFRJlWR8MDjVwFOYwYPCrPGVeNFIiFZVtux4MVL LtFRWvVrK8ZjGmXNXcJXFkVHvuPEPaZHByZPf8FJYv EKZbGU1EAhUeHMWaNPC8FrObSHMuEYBkla1YZHWhWDVkEmVwAdTkYRRnBCXwYWcbNAMzVCB0SsU6LHYn SUHxKV3VUsBqVTCrHOs1DhJuNJSbGXZjyx7ZQLRgOAThKFA4NOHtXJRiMTDcLVbnWVAsGAPcDUE2QAIb YSDfFP2OMyHkDKTaVoZkMNGmXUJzPUXige0KUQEtET WtFCE4FhVxPSLpEMTfOHinXXPmRIF4EvJ0TATeODMpEG5IAyEuGFDmRzg3CVYbRTMeYLTapo5PEKThGD UvZwApNwOgXGPiSJMyWNlnZEBgJZZcStM6VIWcXGUrTJ4HLaXuRTThPzE1GsOaQBZkXNRrks4PYQDvEJ IiRtK3AaIzCZGpGIWxGGinQJNiRWQwZiSmGXSrIUFq IQ1YMvBtZGIqYEP4RkgvTAInZOQiwp1TUGLdTSQ6AiZ2BqGgFCPmLGJlGLjhTNErJGIkGvC1HGDxRAPy MZ9OImQgOQGmPAQ3WUnaFFOoXTUcit3KFQIsISJ4TEX8XIRqFJZaKOVgXZncLYPpNLA6LvV2DEYiNZFe PI5NYiZjKRDaNDJ7TWPvODQjILEgqu6RJJSyJCM6IB q1EQHtGJKpVQMjLLbwLHUpZCM4OMQbSIUaSVXbRG1CYoFjUUSnOYwhUMGnJPDxABMkaz3AMXFuZIX3Xk A1YzAmBSIuAHNeOJawZFKsOOX3IjXiAQIhFDGoTJ4ZQwPpOYKaQOf5JNDhWIRjIJIlrc9JGNTpANK7BM G0CzZaTFEtDFXsUPktKKCmGHL2GvHiILTgBCXzOU8H MuOfIARhVTf6RTsbWVPnGMNohb0MMOBxSRZ2TKXxEvPhWXCbJPFtJQgzLOBcSTXbNGglHITjPWEyVP8U NyFpOETgLMQqMUMfFAMnOAUklt6NVEVoXZN4LOJ8BhHtJZIwLGZrJGgyFSYgWOUwLvQ2NINiBLQjEL2D CnSpIVBlXCW7NJPhHRBaZEGwqu9PNQCfSSD3Zxi8KC BxHBWvNSJwPWpiZOTjFWV9VGv2RCBgBBWeGJ5DGjLqYUReBbH1JVUpFQCwMBVeep2NKVZlJAK3JDaiAQ XkPWEzESMbLBfrXGOqXGY7ISogSFBdVPNuQY8HDfJbWWTbVhNoNMVnXBMtUAGpyo3ILCGuESV6VLb2Gw YuYJOxUPHcQOzdAWVnXQmpJbekDMLaDFTeSL9MApHj YGQzWmZ7YOTgPSQeOIDgdb2YAGUgTSN5GYi9YqYrWAZcKIFdGHkfRJToVHvtHUj8QCQpHVGrGC5NXoPh DXAgAhMhHyZeVPSzHGGsrr3RQFAbXKQ9Icp5ILNiWEDuIPXwBLmeNVPwQLaeZKF3NKNbMZQtRH4KKcGh LKIdIhIjLuGrPFZrODYbcw0LuGMepZlxsm2VRKzAQz 7AnUqjNMH1XTjgLp3rtKF5MEMbZOJEPm2LkyFdYEBiNVLTKDfnPLIdSSXbMlZ2ZuFbJBTsBrFuIld3RY Y5LHD2SIioWHz3ZSatBgW5ZRAyWmniBuO4INZyPCKbZmciCYYdGSv8FIMlBaJoPsW+ZX9xWRm+Pg0Kc3 YmwuP4xiEgJAz7FvB4QP9CZGVKL2DXZt== ID Date Data Source [id number] 04/08/2021 08:11:12 AM EDT [facility] Name Value Range Interpretation Code Description Data Stephanie rce(s) Supporting Document(s) Consultation [facility] NNPRBn6fYxZKBsXx17/MVSgzRFIdy8HnNBbiZXj7FLmoAYYaG6PwVZR6eU4yNMB2PQsMSySiAlGyJYO6 lbm [file] scKVwnsZ3/GxUGlr4gNXvhWSsqFdqSXJEXXNlP01YhDcMuIxsvPh95NqU1qwOpMnEHyxoM9quKTl/SCREWMAKER AUTOMATIC [file] ICAgICAgICAgICAgICAgICAgICAgICAgICAgICAgICAgICAgICAgICAgICAgICAgICAgICAgICAgICAg ICAgICAgICAgICAgICAgICAgDQogICAgICAgICAgIC AgICAgICAgICAgICAgICAgICAgICAgICAgICAgICAgICAgICAgICAgICAgICAgICAgICAgICAgICAgIC AgICAgICAgICAgICAgICAgICAgICAgICAgICAgDQogICAgICAgICAgICAgICAgICAgICAgICAgICAgIC AgICAgICAgICAgICAgICAgICAgICAgICAgICAgICAg ICAgICAgICAgICAgICAgICAgICAgICAgICAgICAgICAgICAgICAgDQogICAgICAgICAgICAgICAgICAg ICAgICAgICAgICAgICAgICAgICAgICAgICAgICAgICAgICAgICAgICAgICAgICAgICAgICAgICAgICAg ICAgICAgICAgICAgICAgICAgICAgDQogICAgICAgIC AgICAgICAgICAgICAgICAgICAgICAgICAgICAgICAgICAgICAgICAgICAgICAgICAgICAgICAgICAgIC AgICAgICAgICAgICAgICAgICAgICAgICAgICAgICAgDQogICAgICAgICAgICAgICAgICAgICAgICAgIC AgICAgICAgICAgICAgICAgICAgICAgICAgICAgICAg ICAgICAgICAgICAgICAgICAgICAgICAgICAgICAgICAgICAgICAgICAgDQogICAgICAgICAgICAgICAg ICAgICAgICAgICAgICAgICAgICAgICAgICAgICAgICAgICAgICAgICAgICAgICAgICAgICAgICAgICAg ICAgICAgICAgICAgICAgICAgICAgICAgDQogICAgIC AgICAgICAgICAgICAgICAgICAgICAgICAgICAgICAgICAgICAgICAgICAgICAgICAgICAgICAgICAgIC AgICAgICAgICAgICAgICAgICAgICAgICAgICAgICAgICAgDQogICAgICAgICAgICAgICAgICAgICAgIC AgICAgICAgICAgICAgICAgICAgICAgICAgICAgICAg ICAgICAgICAgICAgICAgICAgICAgICAgICAgICAgICAgICAgICAgICAgICAgDQogICAgICAgICAgICAg ICAgICAgICAgICAgICAgICAgICAgICAgICAgICAgICAgICAgICAgICAgICAgICAgICAgICAgICAgICAg VMHvVRSrXYMyZLMaRVOeLHUsYRYnDQQtBBQqXHv8O6 pbTOMuRZBuAJ9zLZx4Qc4+QKrCEuHkECR9boOrjZ9KMZ6tw4ZpDWeoFJQws5QhKMn6LQ1OWDKqNTtbMQ 2NZNxeip4FFNJiNYKuzOEYf7tcHsCrMQU2ETAkKbkdLZ5LAFNhJ5wdhsWbDHHhSNUZOGspYACLYGciUU NVBIQuEJNbTuGcSiGwMXAjHIWfJBSKVPO4XSBiNgRm ARVhRAWwYlMwCXICMJXrOQQlOtFjNXUaFSRhLpsaBBMTUW2ERyMiT1BgpQ56XMXfMOa+Ly6OQS4uz7Xl BNc7XpBvPS3mmr1SHPfOBxUbW0AkutA3NKS6QOCjWi6GWRZmAUUtqXP1SDFeBAYPAgIzU8GloY02NFXT Cj4+ISolvlZsJhnKXaS3JYMng6GyNUe6YV9VJNKdBP x2bFMzM36fn2QxwUPxRabkB8svzGM7g6DuMYNtOjKICH3jZH5iRERZAsCmeEY9ZcC1KuHoFqAkICT6YP znXZ3vLUsjVB2MHYQ2INbhXDExVNVpH2xAUpDxXNKwZODsaFiqQW6KMtWbR6GcjzSozNP1PiQtLPOQYb 4+DFenitOeJetHNsV1KZKui6AvFNr2FM3KOKKvFTnr PK0ZEDCibZ5wERyfTQ2ZAiG2BLUoFSOFPxTjV68ahEYyHTe0J6PcQkKwFWEbQadhTBJtVHfwMzNmIDRk WyBdDQogID4+ID4+HPpvYJ5YLKxnefPmEZGlTn2QKBMwYVUsOS3hZNTxWVErV3B6bNgsXKTBPkFdT0pz ayzgTN9tUTDzR271fZtpatEcISHzPYTkMc0NURMtGU I7XQIgqWOcMzUoBCGUAFmiEZ3TrDUeJYJ4yQ4uGNrxKWRxBCTvJ9gTZqQvuXauTN62xHvuncFxeXYbAW o+Fu4HQC6ex6RmHVt0klQpJKdfPUT4FLaqRTPaTGNmCDHjYTU9CYQ8MGKTQoObJNDgRKMtAWleLXWgUZ Vnmf1NLMLvOHQ5SDNaSUZtIXAyCQMlDAwzISGoQPg5 RHI9KDAdADAwDT8KPyCuAXGbHKWgMPptEGQlDRJyct8IFRGcTIUwThoyUfEbUMQkVZXqMRbgLAMbIOQ1 UKO7TYIiOSFjVQ3QMtWaQSUfZOq6TOPlWMFlIEVdts8MCYCfACRoFgduLCFdKLKjQBOqDHilQRKeQNTi PUm8NPHmUKElDW6FBaJiYJMyFYZxZKQoKJTsXMQzfo 6VMOHaMSPsCZK3AWUmYTQfIPXwSPhtHNTnBFH7OtY2ZPXmPNYuAT5FMvPlUHMuLTAwWFGfMIWrNPIzjk 9DKLRoRRRyPzBwBdFsQHPpDRYfJErhVXKxJQQ8TxM8RDQuFKQnKY9GWkYkZHZnVNf8YvMaOGFrVTPkvc 0UNHQtUXOlFBm2MbIzXJKcITHyCYmjKDLbWSGnFKf7 YQXsUXJzOS9UKiYjPEBuDuT9PaAmCALeDOBesx3MDGHjAWQsTVP3JlHuKEPtSDOhTIzkBVDbUZL6MpO7 OQFcMAXhQF2BRwGsNALdCkd0SfShUYPhLAUdux3HRHIvLTOiKZljQCCcRTWqMRIgYCxaVJGjJNCjYNF1 QQGsTGEiEU7WBcKiKQVmPqYqMhmuPZWkWRObhl5FHO HsZHYiZrTlBGZnZXVjJOKsNGdnPRWuNGV7Soc2ILJyZRBsEL4NEnBgZVIjWoh3DWHgYBWsNHDtsi5AHE FdIBBgRRj4CqOlGAVrPMHxBYgwIUIsYYY2NHDmRZFpWOBxQY8QEhRaRDIcIxroLgYqCWDrQIZlpo0TXP RiZEA9CNJ7CrKrPDIiIMTkEXzwBCFoSMOoLNd0ZEWd JURyUA8CCmDfDVUeAVY8GKSkPDEfVSCjoz6ITGPzHHN4ZZP7JcYwHVOwZINbPPscVUNsWLXeNSY8KOKl VZJtKR9LQfRfVRGvKNQqExBvAYDeAZIkwf3FWWClFGF2Oaq8NKIvEXXjAINcPTpxJKApBJQbGDkuGSHk QTGyHK1KTcPeITAhZCOkPIYsNGXlLTBgmg4RHJChRN E6ADP9DXClYPGeDKGwMPstJFEpTLG4MSD6JUWjDNBnDK9EUjSnDXZzYOH1YollJSFeUJNpsu2BGKAnMN U9XIRnLERkMKFhZJIpFSotJDXmUVO4DKL7PUXzATMwEH5JBmHfCRPqJkl3DLUbKULaUXLmbl3AGFBcZE J7VAUiTPUfTVAiRYSjFNiwLHGiTBdeTOhvLNIvESHg WM7VXoDjYJDsEiStKvWzSTPhIZLaid3GMJCzVXW5JFG4QWQyLTMjNLZnWMolPKOiJTk0JVq9UOCaACOt IZ8UVqGiLPJkDzHnAkBdAIOhSHUhmt1GVEGoUSL8VxF2EcGjQTMfMKJqPGmyVJDtEGv5UUr9EQWtLLCs IF9WJpOoSKHaMaO4UqSfDBVhJUBvpn8GMERgVIG1Gz u3LNVkKLQaHVUzFYdeAAYlPCz5JJI0JZZrKYLtZL1BMsGpKTAjSCJ7MdXpQVLdNVMtvl0GKCMqWVB2FR d6WuKaWFLwEOObSEiuXJOuWEk4QLR5KKIkGPKnDX8EYsFzUXZjXLV8QRljPJQuFSFopv4PDVRqNXF2Fd ThQEFfBDKdEQHqLYorENWbXIn0QwR9QQHeLHCsPE3X NaSaNCDuBMs8QVkyNWFuLRDjlh1AAXGaCCB7Sni5FYDqPYCoVFZiLNm2ntUxfURdTWn9YD4PM6UglhCc CdHTJa9Ku953GGC0SYHgCn4QY5wqBz7xYKWiFXBNQs7ZQKf7PWJhQYB1FDO3WELcZyPbGcprPRD3BCo5 MTVlODRmZjE+QDr1KKW3CQWeZze0YxIzClQwKZVgIL i8IJZfQAZ5NGPmOS2dHNHCWg4+RBvtbTWvwJqsWUOSRon5CDrfNCkbJJAHEo7W ID Date Data Source [id number] 04/07/2021 10:13:17 AM EDT [facility] Name Value Range Interpretation Code Description Data Stephanie rce(s) Supporting Document(s) Consultation [facility] MZQQDs7nLrAASeUq92/JRWpbTIMny6YnZJgsBNh3DSseRTAeY6LrZNZ9nP7dHWH7YWrATgDpNeHsDWA1 lbm [file] NVZ5PyG3IRQ1QJf4A0XeNRGpPICqPdGmYV0WBn3SBcF5YBC4sMEkSe1RAcJ8RIzDMsKdZI7GHYd= ID Date Data Source [id number] 04/07/2021 08:19:33 AM EDT [facility] Name Value Range Interpretation Code Description Data Stephanie rce(s) Supporting Document(s) History and Physical [facility] FXVHNq8kLeHOSnAw57/BKLycIIAld9HfYXqdZPx0WWnuPQLpL2EoZCZ8jA9fXSG9XGnGWsLqAqYxLUI4 lbm LtNkeOYrTiGOMiApzBInVaTOjiTrlgdKDoJN4KjCV0PQPuZ97uJPWvMHPbX5DvRED2JCg+Af1YTHTorW BxBL1PYmpN3V7hy2oWUf3+wP2HRQ/otUFic/m2pL+qbpD8rMXOMdCJiAxTru16syQbkotjl0wwbwQ1XI VT+pZMMalcyS5Ke3DalXojiV+JIYi324v1KgNL85Li 3+xnSQ17ZjH//UdbWrs60IGWK0OCzhZ7Xs7II6B/A/5bY84jaA7HulooafWLRhfclviGc2NoAqPQRsd/ qsEvSodhNpKBdwWodQH+EoI8Gor6wYSEZBdrAtVLYVBUSeLRlTajaL2JQaaQ40HcN2oEIQ7vQVHqGR/7 gN067DGUMXsusDq4d1l5DBQMzxOtjJCVUKMZfgWCU/ 2Yw92B+nlj/eHilJvAFH3wquAz3lRZJ0eWFjFniAjKkMeIotvd2+uvcGu/KeadNDB+mA3bpxkUasg0ax yvr5p34Z0ZoPs+KMqvSmJAtkhRQMz7eC4W6EIHq/0s9ZxSXpWlZApaG0QOlKx5hX6imAokq+YBwg5VFD IARzXbemGa1ix9aUmxXihicSzVuZnQ8HjB68BrlcD1 l35eVMNoL2PJAc3KD3nMSeeNfEhYbA/+G77vVTjvfiC/Hk+HV0L6+RXydcqMNbIaeVhgGywL7sgh4BUA Rr4AB14g1CeMz8kcEKGhqI09YwFd8EvA95t4MtT0SS04FkC8gf0q/oNyfoPP95niOGkqnzedlcN/c/L+ Q/es131/vkqwcG0zjLV8zxmhrVpYHnHcY7eBeq9lDf krrVR2o+z/nvy4d5wTiLuCuRvriU6RIgvon4XzKvr7NvIAfpa0+IgIqIzHfbckJokmdw83aJGZDS8Wdz V1DoH9mjJmoClttQS4W40IGHCphDUJTVKoWM8A6weRRTJH4+T1nJMkUVQAJay+RDnK56youw5ivgjaQC WsX5ttfh3f1u1GvpygjcUqujR8sebwKmFZnhZflcw3 [file] ICAgICAgICAgICAgICAgICAgICAgICAgICAgICAgICAgICAgICAgICAgICAgICAgICAgICAgICAgICAg ICAgICAgICAgICAgICAgICAgICAgICAgICAgICAgICAgICAgICANCiAgICAgICAgICAgICAgICAgICAg ICAgICAgICAgICAgICAgICAgICAgICAgICAgICAgIC AgICAgICAgICAgICAgICAgICAgICAgICAgICAgICAgICAgICAgICAgICAgICAgICANCiAgICAgICAgIC AgICAgICAgICAgICAgICAgICAgICAgICAgICAgICAgICAgICAgICAgICAgICAgICAgICAgICAgICAgIC AgICAgICAgICAgICAgICAgICAgICAgICAgICAgICAN CiAgICAgICAgICAgICAgICAgICAgICAgICAgICAgICAgICAgICAgICAgICAgICAgICAgICAgICAgICAg ICAgICAgICAgICAgICAgICAgICAgICAgICAgICAgICAgICAgICAgICANCiAgICAgICAgICAgICAgICAg ICAgICAgICAgICAgICAgICAgICAgICAgICAgICAgIC AgICAgICAgICAgICAgICAgICAgICAgICAgICAgICAgICAgICAgICAgICAgICAgICAgICANCiAgICAgIC AgICAgICAgICAgICAgICAgICAgICAgICAgICAgICAgICAgICAgICAgICAgICAgICAgICAgICAgICAgIC AgICAgICAgICAgICAgICAgICAgICAgICAgICAgICAg ICANCiAgICAgICAgICAgICAgICAgICAgICAgICAgICAgICAgICAgICAgICAgICAgICAgICAgICAgICAg ICAgICAgICAgICAgICAgICAgICAgICAgICAgICAgICAgICAgICAgICAgICANCiAgICAgICAgICAgICAg ICAgICAgICAgICAgICAgICAgICAgICAgICAgICAgIC AgICAgICAgICAgICAgICAgICAgICAgICAgICAgICAgICAgICAgICAgICAgICAgICAgICAgICANCiAgIC AgICAgICAgICAgICAgICAgICAgICAgICAgICAgICAgICAgICAgICAgICAgICAgICAgICAgICAgICAgIC AgICAgICAgICAgICAgICAgICAgICAgICAgICAgICAg ICAgICANCiAgICAgICAgICAgICAgICAgICAgICAgICAgICAgICAgICAgICAgICAgICAgICAgICAgICAg ICAgICAgICAgICAgICAgICAgICAgICAgICAgICAgICAgICAgICAgICAgICAgICANCjw/dVKnV9vehEYk jvI5Y8xfAy3FMy9SZK6hq6VvHLAfHKonlyKdLajIEm ErNXSiMnfCVvg7NBonKW7ElQMgA8BuL2ZeORqqLJ5JQIHtKGWdcXVjCIGvRSEbNrN2ANEnYHsnIZ7VxJ YcZPubJSDaAPNuTeByMDGpLAYlSHFhKEOmGESCSDSeDXQuHrIqNOPqOOXsQCbjNUGJLZG2AOJoWjUvWR LgHPUsAjYzHXOYWWO0BNUbAqVgTdQnUSKzRW5LNEZh W413fbLtIEEVIr0+OCmfyrMjLwcFUlQnGMLct2BvZFp1PU3GALBuZbdzr8NhPaKoHCIXUNhmUX1CVML5 ZJD2FSPoEr2XTEOjL030mlRlOY5DQp9DMzYyIE6hio9OApWdAWCvRcfZNlf5UAgsHT3FdDLnEFwGRrDp XmaoC3wuhRC4y6ZdOINnJpIPPW0bYZ3xHQJCJkLfuG L1GmS2GmIkIxVdRAB6VuioKU6kABfuBQ9JSRI8BVnuBECaAROoC4zSQvDkKRDrDSJgbLdeTW6RPpYlG4 OrmzFiqEP7TcNdCDJEAm7+RMheafWlVvxKBcS4RGWwf0HgGCd4GE3SSKZnGGrhGD0HMKOcaC8aGXczRK 2LXcB2IFQaKECBWmWeT99bzVAaFGe1W4NlQdYxBFNt RmlsZXMgPDwvTmFtZXMgWyBdDQogID4+ID4+NKhtZN1JSWoxhiLeQIKqCf5RVLKdSZKwFZ3fLLPsKPKt Z8R2eAblLCDXCaBdE3wdezstCB4zKLFzE521xVwmueEwRRRmALUxFw4CJQYjQUF8FNCqcYDmRtQrCNFD GRvjWT9LbDNdJGC7cY9qVQubDSTnVUYfJ9kJBjTagW dpQQ59tPtqvpPnbVGvWLi+Eb3KQA9kl3DhCDr3zlRkQSeuHLZ4DEpdFJAuAICyENCbCHA8OEW9WLDWOm ZpNUSeFPMfDFctZBZyLTJtfz2PYJQnVYM1CkboJmNhBHPpISGuXCzsKJPcLLv3WLG1KPIjRVFrZG4KLk HbSQPsPIPwXFqoXCVhGEMamn0GQJHpVHIjIcu3MuAb UHVsVGPlLMwyNHDoKXL1ZYldISDiZGYkKY2WEmPnODZnFPh9RFNwUMVbLUGydc6WEKNvNCPsTvsxLTIo MWRmKZQbVCmaTYFpTQBnIsJxARAbYFQrNB2SXfOsQWKwPMK7FUPoSGGgTBKkgs2YOVLqLQGcJXL6ZVSi PCCaDFNlBTsbWYGuWII0FbJ3MMFpBSPdFS7XHdMsHB FqWEnhJynuMYSnSWAutw5SKCNkYAAfXdH1RGGhFUYrNQOuAHaoXVYxUUQ3Mse5TZJoXVCwQL3KNrAjNK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 tocontract for safety so doesn't know why they discharged her. Pt reportsincreased stress due to; not feeling safe at her [facility] residence due to anotherresident, increased family conflict due to being transgender and an ex being inprison. Pt states that she has not been following the rules at [facility]. Pt deniesHI. Pt denies any recent suicide attempts, last being February 2020 by overdose.Pt does have an extensive history of suicide attempts, reporting 10+. Ptreports self harm by scraping her arm with a knife three weeks ago. Pt reportsattending outpatient [facility] [place]. Pt r eportsthat she has been eating [...] she wants togo to crisis center in [place] but discussed with her regarding that she [...] history: Patient is currently single, lives at [facility], getting DSS supportand poor family support [...] ideations and requesting to bedischarged back to [facility] and 1 point she wanted to [...] discharged from the emergency room back to [facility] if patientmaintains her safety. AOT learning and development coordinator also been involved regardingfinding alternative treatment [...] rce(s) Supporting Document(s) ID Date Data Source [id number] 04/01/2021 08:58:00 PM EDT [address] [address]WPAIXBR AND PHYSICALPATIENT NAME: YARELI HATCH MR#: [id number] PHYSICIAN: BROOKLYN ONEILL MDAUTHOR: Neil Yusuf MD DATE: 04/01/21 RM#: [id number] & PHYSICAL DATE: 04/01/21 : 00EVALUATION TIME: 2113HisChi Complaint/Admit ReasonDepression and suicidal ideations.History of Presenting Dhhskgg12-dfkt-wqd female who is morbidly obese presents to the ED complaints ofsuicidal ideations and increased depression. While in the ED patient patienttried to elope and also became aggressive to medical staff was also hitting herhead on the wall. Patient eventually required medications in the ED and wasplaced on four-point restraints. I came to evaluate patient at the [facility] for her history and physical. Patient came [...] obtainUnable to be obtained.ExamVital SignsVital Signs-24 HRS04/01 203Temp 98.4Pulse 79Resp 17B/P 122/69 122/69B/P MeanPulse Ox 98O2 DeliveryO2 Flow KcynPxD9Jijjknas ExaminationGeneral Appearance Patient refused to be examined.Data ReviewLaboratory DataRecent Labs-48 hours03/30344 2345 2349ChemistrySodium (136 - 147 mmol/L) 141Potassium (3.5 - [...] CloudyUrine pH (5.0 - 8.0) 6.0Ur Specific Randle (1.010 - 1.025) 1.031 HUrine Protein (Negative) [...] rce(s) Supporting Document(s) ID Date Data Source [id number] 03/31/2021 09:46:52 AM EDT [facility] Name Value Range Interpretation Code Description Data Stephanie rce(s) Supporting Document(s) ED Provider Notes [facility] BAUJDn9kXgANWwKq16/MABfzXKPch4PpHXxeNOm7QZqyYHQpE8OhGEZ2qI8wNWI2PUjDTnRcBkXwMYBj [facility] [file] 0mFDTFTW9ypxUX3DTKv+fRIKqyuhVCky8tDgq1p+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wDof+AK+JhouggOpXDG8XEkbRpbv480B83J6TV5Z9fnUl/wTorpPLAdP6HWiFGhn/Nhv+fFbqqH0u [file] E+DQogICAgICAgICAgICAgICAgICAgICAgICAgICAg ICAgICAgICAgICAgICAgICAgICAgICAgICAgICAgICAgICAgICAgICAgICAgICAgICAgICAgICAgICAg ICAgICAgICAgICAgDQogICAgICAgICAgICAgICAgICAgICAgICAgICAgICAgICAgICAgICAgICAgICAg ICAgICAgICAgICAgICAgICAgICAgICAgICAgICAgIC AgICAgICAgICAgICAgICAgICAgICAgDQogICAgICAgICAgICAgICAgICAgICAgICAgICAgICAgICAgIC AgICAgICAgICAgICAgICAgICAgICAgICAgICAgICAgICAgICAgICAgICAgICAgICAgICAgICAgICAgIC AgICAgDQogICAgICAgICAgICAgICAgICAgICAgICAg ICAgICAgICAgICAgICAgICAgICAgICAgICAgICAgICAgICAgICAgICAgICAgICAgICAgICAgICAgICAg ICAgICAgICAgICAgICAgDQogICAgICAgICAgICAgICAgICAgICAgICAgICAgICAgICAgICAgICAgICAg ICAgICAgICAgICAgICAgICAgICAgICAgICAgICAgIC AgICAgICAgICAgICAgICAgICAgICAgICAgDQogICAgICAgICAgICAgICAgICAgICAgICAgICAgICAgIC AgICAgICAgICAgICAgICAgICAgICAgICAgICAgICAgICAgICAgICAgICAgICAgICAgICAgICAgICAgIC AgICAgICAgDQogICAgICAgICAgICAgICAgICAgICAg ICAgICAgICAgICAgICAgICAgICAgICAgICAgICAgICAgICAgICAgICAgICAgICAgICAgICAgICAgICAg ICAgICAgICAgICAgICAgICAgDQogICAgICAgICAgICAgICAgICAgICAgICAgICAgICAgICAgICAgICAg ICAgICAgICAgICAgICAgICAgICAgICAgICAgICAgIC AgICAgICAgICAgICAgICAgICAgICAgICAgICAgDQogICAgICAgICAgICAgICAgICAgICAgICAgICAgIC AgICAgICAgICAgICAgICAgICAgICAgICAgICAgICAgICAgICAgICAgICAgICAgICAgICAgICAgICAgIC AgICAgICAgICAgDQogICAgICAgICAgICAgICAgICAg ICAgICAgICAgICAgICAgICAgICAgICAgICAgICAgICAgICAgICAgICAgICAgICAgICAgICAgICAgICAg AZYnSFSiLKCbARDcZKMzHMQxKNPfICh5L2raVSTcUULfRW1nPCz6Pp3+QSqKZyDfMDX8nrCgwS2CMK7o z8OhJOdwNDBff2SlHLb2MH9RRQRdMZgeBT2CGQscye 9LKHIdNTRduIXKh6fhOvHvCVI9ECQqXunnNZ0COYNiE0knmoDiZDDjUYDFOAowQDETWJznLKZUIFAuKV KfCgQlMEetHV1Lo7WxtFG1MHc+Ld8HPH8qs8SdHNxyKNHgTF4sln6NDEjMGpTcY0OyqxY6PVE3WOAmGe 3IOOJwQUBhqAUpGQRyHGZYAxUcF7KvgN82IPMRCb9+ JJhtbwSnYkbVQzO2THUpn5TmAPa3LV6RWOKuFHu0hIStTYPdDKEnpujjWUZbIn82WEYgVewgOdFjLylz ydIJKUSmezttKRXONHRenVL5DvXjHbUiQQLtSKzlGtHMYHyPUqUuU9Cxa2SdPoI5JCOdQsSxWCyxJSHi AyW1IU49vWngPJ9ZHZHzLSIvCE17NZW7KGUqWb5MNo 0ODjIdAZ9xnu1GElLgJZJvJkyEAbo0AOaqOG6XaVUkU4ZprDEil2uZBfIuH3BCAAIuZYFvPm7QMBSySn YiWJOlJQazEF0sCOGfFOAScSjlshH8LN3QBC4qorBpSV1ZWuLdRz0xIh0GMmXhQ3XyE0ZsBFOwGRUCYP mxUZ9UQTqfAW2wKM0Qn3BGdNHauY3wvx8ZSDSiNHAj Uslrze0IYzngR1W4cTfhBYLuMaOtBZNDTYdoSK2WTYFeHHL8EZBoJhTeBUVWUsFiH40vUC3ME9Mjv30d FzP0YKLvSdHnBUlxCC00tHnxteKweVJxmBqwPK9LNt2+DQplbmRvYmoNCnhyZWYNCjAgMzcNCjAwMDAw WXCeUEIwLyN4WsQpTw4IINUqBFFjQWHdMwHyOBNqKS VzNHvoOSEcSVR3OUZ0PHOrAGKaLL4DIySuUPIoLyDxKeUqBDHdWJUrgr5DINKpXTUgQGR3LbKiJEXmNN MnVRpkRMPzGSNeLGPaKSZjLYMjJD1ILxBgHEAcRMOlQaWdZDOyCGWlhw8WBFAyANQtJQBnSKOgZWCsHX ErEKlnGIXxORX3KzM0FKPlMLEwCA1KCwZrBWAdLSs3 KSSvNFIqQBGisp6YOUYfIBYrCCV4PyIkGOUlQPAvELxsXVOpIEL1XjPfABRkRCUeGF9ZPbPgQUIcQDu9 OhIuKQPiZDVzad6FSFVtEJKcSOSqIXZrYIUjETOoSPlkUHFaZFUgWeR6ADSkDKOpTQ1GWnDmYVJvSBK0 OLIpUFCiGMXrsi1WNDKsBFBwLYr4HQZdLWTmWBQhIT yeZXSdQOKeDIovSRTjIVKiVG0OZfKrBGGtBAZlSGHdNLMnKUHmnv0HWIQhTRQnVhLoDRVyLWSdHFMbHV hvIENaRQDpJJCrDLCcYTLmWY9GSuVcDLUdDVA7SMMkLUEnBSKtvf1WQBAcEIBzBHB3LTTnBMXkUNEsVF glATDhLUK8LyetRKEsXCYsIM3PRgDfPNMeKKM6JGZn PJXoKTZqqy1XUJPtKKXgSfLbKdVcQENvGMKfJBszBTZoUMI2SzOjGBQaIHDhZB9ECsOuGKEiWyh5IeLg XXXrFARgdx3QNUDlSEPaTLX3WJKcSCWvXFJwFFxuOQLqOOL3QeC6APJiGOZqEA6XKgLmCNCrAkvnGPcs SIQvUOYxhm6HWOYrSHCrLVU0VvKsZQPzGDGuKIywVG UkVKV7TIB0ZLTsWBOqLP4AFaAtUCVySke3DEGmJLAjQZWppd4TDJVgGYNhLGE3ZLJpDUGfXXDaPArnRC WoDIXiDVQaFVSqRUGbJX2JShMjFIFoTkP6GkKbBKHxWJJdsy3ChZJgkBjxay8NORcMUn9DgWkaIQS2IH jiEv3lpKCzXsRyDMKZEm0VckXbWRUiUEHALUvyYBGi SHDnGNOoNZA5RhPbCdG8WBIkFXSeYXV7GuZwBFKfFOYuBgL7JyFaUKZgMTDxIWVwTOv3FmA4IIR3UTcv X8PlUYVySyA+OV3sJYq+Mq3Ek5AetbT5poKzOKipDTnkRL6OVRZDC1KEDm== ID Date Data Source [id number] 03/30/2021 11:59:00 PM EDT [facility] Name Value Range Interpretation Code Description Data Stephanie rce(s) Supporting Document(s) WBC 11.60 x10E3/uL 4.0-10.5 [facility] RBC 4.43 x10E6/uL 4.20-5.40 [facility] Hemoglobin 13.1 g/dL 12.0-16.0 [facility] Hematocrit 39.0 % 37.0-47.0 [facility] MCV 88.0 fL 81.0-99.0 [facility] MCH 29.6 pg 27.0-31.0 [facility] MCHC 33.6 g/dL 32.7-35.6 [facility] RDW 11.9 % 11.5-14.0 [facility] Platelet count 283 x10E3/uL 150-450 [facility] MPV 9.7 fl 6.9-9.5 [facility] Neutrophils 68.5 % 34-64 [facility] Lymphocytes 23.7 % 25-45 [facility] Monocytes 6.5 % 1.7-10.6 [facility] Eosinophils 0.7 % 0.4-7.0 [facility] Basophils 0.2 % 0.1-2.0 [facility] Imm. Gran. 0.4 % 0.1-2.0 [facility] Abs. Neutro. 7.95 x10E3/uL 1.2-7.6 [facility] Abs. Lymph. 2.75 x10E3/uL 1.0-3.5 [facility] Abs. [place]. 0.75 x10E3/uL 0.1-1.0 [facility] Abs[facility] Eosin. 0.08 x10E3/uL 0.1-0.7 [facility] Abs. Baso. 0.02 x10E3/uL 0.0-0.1 [facility] Imm. Gran. 0.05 x10E3/uL 0.0-0.1 [facility] spital ANRBC% 0 % 0 [facility] ID Date Data Source [id number] 03/31/2021 12:19:00 AM EDT [facility] Name Value Range Interpretation Code Description Data Stephanie rce(s) Supporting Document(s) SALICYLATE < 1.7 mg/dL 0.0-20.0 [facility] ID Date Data Source [id number] 03/31/2021 12:19:00 AM EDT [facility] Name Value Range Interpretation Code Description Data Stephanie rce(s) Supporting Document(s) ETOH NONE DETECTED [facility] NONE DETECTED ID Date Data Source [id number] 03/31/2021 12:19:00 AM EDT [facility] Name Value Range Interpretation Code Description Data Stephanie rce(s) Supporting Document(s) ACETAMINOPHEN < 2.0 ug/mL 0-30 [facility] ID Date Data Source [id number] 03/31/2021 12:19:00 AM EDT [facility] Name Value Range Interpretation Code Description Data Stephanie rce(s) Supporting Document(s) GLU 106 mg/dL 70-110 [facility] Patients taking Sulfasalazine may have f alsely depressedGlucose levels. Patients taking Sulfapyridine may havefalsely elevated Glucose levels. Patients should be drawnfor Glucose before the initial administration of eitherdrug. BUN 15 mg/dL 7-23 [facility] CRE 0.590 mg/dL 0.500-1.300 [facility] GFR > 60 mL/min [facility] CHLORIDE 107 mmol/L 99-110 [facility] NA 141 mmol/L 136-147 [facility] POTASSIUM 4.1 mmol/L 3.5-5.1 [facility] TCO2 24 mmol/L 20-33 [facility] ANION GAP 14.1 10.0-20.0 [facility] CA 8.6 mg/dL 8.3-10.7 [facility] ALKALINE PHOS 125 U/L 45-117 [facility] TP 7.5 g/dL 6.0-7.8 [facility] ALB 3.7 g/dL 3.5-5.0 [facility] ESRD Dialysis patient Albumin reference range: 2.9-4.4 g/dL GL 3.8 g/dL 2.3-3.5 [facility] A/G 1.0 1.0-2.5 [facility] T. BILIRUBIN 0.3 mg/dL 0.1-1.1 [facility] [employer] [place] Total Bilirubin is n ot recommended forpatients undergoing treatment with eltrombopag (Promacta)due to the potential for falsely elevated results. ALTI 52 U/L 6-54 [facility] Patients taking Sulfasalazine and/or Sul fapyridine may havefalsely depressed ALT levels. Patients should be drawn forALT before the initial administration of either drug. AST 30 U/L 6-38 [facility] Patients taking Sulfasalazine and/or Sul fapyridine may havefalsely depressed AST levels. Patients should be drawn forAST before the initial administration of either drug. ID Date Data Source [id number] 03/30/2021 11:45:00 PM EDT [facility] Name Value Range Interpretation Code Description Data Stephanie rce(s) Supporting Document(s) LCOVID-19, CORDELL NEGATIVE [facility] This lab was ordered by [facility] and reported by [facility]. ID Date Data Source [id number] 03/31/2021 12:12:00 AM EDT [facility] Name Value Range Interpretation Code Description Data Stephanie rce(s) Supporting Document(s) COVID-19, CORDELL NEGATIVE NEGATIVE [facility] Methodology: Isothermal Nucleic Acid Amp [...] Emergency Use Authorization. ID Date Data Source [id number] 03/31/2021 12:33:00 AM EDT [facility] Name Value Range Interpretation Code Description Data Stephanie rce(s) Supporting Document(s) PCP VISTA NEG NEGATIVE [facility] MINIMUM LEVEL OF DETECTION IS 25 ng/ml BENZODIAZEPINES NEG NEGATIVE [facility] al MINIMUM LEVEL OF DETECTION IS 200 ng/ml COCAINE VISTA NEG NEGATIVE [facility] MINIMUM LEVEL OF DETECTION IS 300 ng/ml AMPHETAMINES NEG NEGATIVE [facility] al MINIMUM LEVEL OF DETECTION IS 1000 ng/ml BARBITURATES NEG NEGATIVE [facility] CUTOFF CONCENTRATION IS 200 ng/ml CANNABINOIDS NEG NEGATIVE [facility] al CUTOFF CONCENTRATION IS 50 ng/ml METHADONE VISTA NEG NEGATIVE [facility] MINIMUM LEVEL OF DETECTION IS 300 ng/ml OPIATE VISTA NEG NEGATIVE [facility] MINIMUM DETECTION LEVEL IS 300 ng/ml ID Date Data Source [id number] 03/31/2021 12:13:00 AM EDT [facility] Name Value Range Interpretation Code Description Data Stephanie rce(s) Supporting Document(s) URINE RBC None Seen NONE SEEN [facility] URINE WBC 0-2 WBCs/HPF NONE SEEN [facility] URINE BACTERIA Few NONE SEEN [facility] l URINE EPI. Moderate NONE SEEN [facility] ID Date Data Source [id number] 03/31/2021 12:13:00 AM EDT [facility] Name Value Range Interpretation Code Description Data Stephanie rce(s) Supporting Document(s) URINE COLOR Yellow [facility] UAPR Cloudy [facility] UGLU Negative NEGATIVE [facility] URINE BILIRUBIN Negative NEGATIVE [facility] al UKET Negative NEGATIVE [facility] USG 1.031 1.010-1.025 [facility] UBLO Negative NEGATIVE [facility] UpH 6.0 5.0-8.0 [facility] UPRO Trace Negative [facility] UUB 1.0 mg/dL 0.2-1.0 [facility] UNIT Negative Negative [facility] ULEU Trace Negative [facility] ID Date Data Source [id number] 03/31/2021 12:13:00 AM EDT [facility] Name Value Range Interpretation Code Description Data Stephanie rce(s) Supporting Document(s) HCG QUAL URINE Negative Negative [facility] ID Date Data Source [id number] 04/01/2021 06:53:00 PM EDT [facility] Physician DocumentationClaxton-Naveen M edical CenterName: Yareli DuvallAge: 20 yrsSex: FemaleDOB: 2000MRN: [id number] Date: 03/30/2021Time: 23:26Account#: [id number] 1Private MD: NONE, - Per PatientED Physician Alissa العلي Summary:04/01/21 18:33Hospitalization OrderedHospitalization Status: Inpatient AdmissionseProvider: Anitra [...] symptoms: Pertinent negatives: abdominal pain, chestpain, fever, mb7jrsihmut, nausea, shortness of breath, vomiting. [facility]. Patient reports suicidal ideation with [...] Eyes: Negative for acute changes.ENT: Negative for rh3itoaa discharge, rhinorrhea, sinus congestion. Neck: Negative for [...] Body Mass Index 48.58 (136.53 kg, 167.64 cm)5003/2118:40 [facility] Patient medically screened.:57 Data reviewed: vital signs, nurses notes, lab test result(s). ED course:Patient here th4for mental health evaluation as above. [facility]. Patient is medically [...] name: ETOH; Complete Time: 00::38 Order name: Fzsvsqchn518/1923:38 Order name: Salicylate Level; Complete Time: 00::38 Order name: Triage - Drug Screen; Complete Time: 09:9:12 Interpretation: Within normal limits.:38 Order name: UA; Complete Time: 00::38 Order name: Urine HCG Qualitative; Complete Time: 00::38 Order name: Diet - Mental Health Tray (call dietary); Complete Time:::38 Order name: Belongings List; Complete Time: ::38 Order name: Document Weight and Height for BMI; Complete Time: 00::38 Order name: Mental Health Evaluation; Complete Time: 01::38 Order name: Mental Health Level 3; Complete Time: 00::38 Order name: VS q shift; Complete Time: 00::21 Order name: Medically Cleared for Eval by-Psychosocial, Theater Technician (.PSA):02 Order name: Mental Health Level 4; Complete Time: 05:0 4vc8Qovwxmcmo Medications:03/2003:48 Drug: OLANZapine 10 mg [olanzapine 10 mg tablet (1 tabs)] Route: PO;jw504:30 Follow up: Response: No adverse reaction; No change in gqgxidcolxl755:08 Drug: Geodon 20 mg [ziprasidone 20 mg/mL (final concentration)intramuscular solution jw5(1 mL)] Route: IM; Site: left deltoid;07:13 Follow up: Response: No adverse haductmnuo702/2100:00 Drug: Geodon 20 mg [ziprasidone 20 mg/mL (final concentration)intramuscular solution tp2(1 mL)] Route: IM; Site: left deltoid;00:30 Follow up: Response: No adverse xmbejvvlob614:00 Drug: LORazepam 2 mg [lorazepam 2 mg/mL injection solution (1 mL)] Route:IM; Site: gt0eloip deltoid;00:30 Follow up: Response: No adverse jiogxzapfp852:00 Drug: diphenhydrAMINE 50 mg [diphenhydramine 50 mg/mL injection solution(1 mL)] Route: tp2IM; Site: right deltoid;00:30 Follow up: Response: No adverse afnyafxetn062:22 Drug: LORazepam 2 mg [lorazepam 2 mg/mL injection solution (1 mL)] Route:IM; Site: jlright vastus lateralis;10:33 Follow up: Response: Anxiety shibzshdasr581:23 Drug: diphenhydrAMINE 50 mg [diphenhydramine 50 mg/mL injection solution(1 mL)] Route: jlIM; Site: right vastus lateralis;10:33 Follow up: Response: Anxiety :24 Drug: Geodon 20 mg [ziprasidone 20 mg/mL (final concentration)intramuscular solution jl(1 mL)] Route: IM; Site: right vastus lateralis;10:33 Follow up: Response: Anxiety jmpuexnkiwf6Tsagvxzjug:Dispatcher [employer] Kylie Fishman MD MD seHowland, Todd, MD MD nn6MxysiFortunato humphrey RN RN lm0WkHehwsBertha lundberg RN RN jlPutBreonna yu RN RN iq6EqsytfxpAmi dang RN ef1 Name Value Range Interpretation Code Description Data Stephanie rce(s) Supporting Document(s) ID Date Data Source [id number] 04/01/2021 06:53:00 PM EDT [facility] Nurse's NotesClaxton-Naveen Medical Tootie terName: Yareli DuvallAge: 20 yrsSex: FemaleDOB: 2000MRN: [id number] Date: 03/30/2021Time: 23:26Account#: [id number] 1Priash MD: NONE, - Per PatientDiagnosis: Free text-PTSD, bipolar with depressionPresentation:03/1923:28 Presenting complaint: Patient brought in by [employer] officer [facility] uv3nnvxgngdkl due to patient calling reporting suicidal thoughts with plan to hangself oroverdose. International Travel Fever No. Coronavirus Screening: Have you beendiagnosedwith COVID-19 in the past 30 days? no Are you currently on quarantine by [employer]?no Flu-like symptoms reported in the last 14 days: no. Have you had closecontact withconfirmed or suspected COVID-19 case? no Do you live in a setting where a largeofamount of people live, such as [place] [facility], [facility], [facility], etc? no. Haveyoutraveled to a location with widespread or ongoing COVID-19 community spread [facility]? no Have you traveled internationally or h ad contact with someonethat hastraveled and has been ill in the past 3 weeks? no Have you received the COVIDvaccine?Yes. Communicable Disease Screen: Negative for fever>/= 100 degrees Fahrenheit.Communicable disease screen is negative. (-) rash or unusual skin lesion (-)travel/contact with traveler (-) respiratory symptoms. Communication SpeaksEnglish?Yes, is preferred language.23:28 Acuity: Triage 8hv353:28 Method Of Arrival: Dtbrzjep758:30 Acuity Assignment: Triage 1mz4Hdiwhy Assessment:23:33 General: Appears in no apparent distress, [...] hopeless? Yes. Exhibiting depressed mood. Positive screen fordeigor, provider aware of positive screening. Education provided. [...] threats or abuse. Denies injuries from another.Nutritional oa6osubjsxto: No deficits noted. Offer of HIV testing: patient was previouslyofferedscreening. Fall Risk None identified.Assessment:23:44 Reassessment: see triage.jw509/2000:54 Reassessment: No changes from previously documented assessment.jw503:24 Reassessment: after PSA informed patient that she would have to wait tillmorning and xr2czgs the morning psychiatrist decide if she would [...] 10 mg po to helpwith anxiety MD alcalaec7umtldyjw and order received and medication given .05:02 Reassessment: Patient was using a marker to color as a coping strategyand took marker tu9wwjju and cut left forearm with part of [...] try to push way throughER door several un7ovxkbnhj made to keep patient turned around, patient [...] and joking with staff in a bright mood.do7Kpenickfukib:03/2002:34 SAFE Act Report Not Completed. Intervention: Observation Level 3. Mentalhealth consult hfis initiated at 01:50. Referral Information: Evaluation referral is generatedby apolice agency: [facility]. The patient was referred for evaluationbecausesuicidal i deation with a plan. Subjective: The patients chief complaint is Ptpresentsto the ED with [facility] due to Pt contacting them stating that she issuicidalwith a plan. Pt reports increased depression and being suicidal with a plan tohangself, overdose or jump off a bridge. Pt reports that she was at [facility] and transferred to [facility] yesterday and discharged. Ptreports thatshmainor is still feeling suicidal and was unable to contract for safety so doesn'tknow whythey discharged her. Pt reports increased stress due to; not feeling safe ather TLSresidence due to another resident, increased family conflict due to beingtransgenderand an ex being in [facility]. Pt states that she has not been following the rulesat [facility].Pt denies HI. Pt denies any recent suicide attempts, last being February 2020 byoverdose. Pt does have an extensive history of suicide attempts, reporting 10+.Ptreports self harm by scraping her arm with a knife three weeks ago. Pt [facility]att[facility] [place]. Pt reportsthat shehas been eating more due to increased stress and hasn't been sleeping forapproximatelythree weeks now. Pt reports inconsistent medication compliance due to being inand outof the ER and refusing medications. Pt denies drug and alcohol use. Pt denieshallucinations. Pt denies access to guns. Pt reports that she is currently oprter AOTand has been since 01/09/21. Pt also [...] overdose 02/2020 Mental HealthAdmissions:multiple, last being at [place] 03/16/21 Current Outpatient Mental HealthServices:Psychiatrist / Agency: eulalia ([facility] in [place]). Therapist /Agency:Grayson Farley ([facility] in [place]). Living Environment: The patientcurrently lives in a [facility] residence. 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 Simon, Dr. Simon recommendskeeping Pt in the ED hfat this time and presenting Pt to the psychiatrist on during the day.Consultation:Psych MD informed of patient's status at 02:56, ED MD notified of patientsstatus at02:56. Disposition: Medically cleared for disposition by Dr Argueta.PsychiatricConsult is performed by phone with Dr Simon. The patient is not a servicemember ormilitary dependent. [place] Suicide Severity Rating Scale: Suicidal IdeationRating 3;Intensity [...] will be Emergency: 9.39. DSM-V DXAxis I lp5imajsrbxq: Other Borderline Personality Disorder [place] II diagnosis: DeferredAxis IIIdiagnosis: None. [place] IV diagnosis: poor coping skills. InsurancePre-Certification:Not Required. [facility] dmission Criteria: The patient is experiencing suicidalideation.The [...] status will be Emergency: 9.39. Commitmentpapers are dw8uvtoaynzy. Pt has been provided a copy of their legal status and rights. DSM- VDX AxisI diagnosis: Bipolar D/O, depressed Post Traumatic Stress Disorder. Transitionof careto Pt will be transported to [facility] with PSA and [facility].Psych:03/1923:37 Subjective: Patient's mood is elevated, Delusions are denied,Hallucinations are denied uo8Ekycsy thoughts of suicide. Plan for suicide is [...] Body Mass Index 48.58 (136.53 kg, 167.64 cm)jw50/2117:40 Pain Scale: AdultjlED Course:03/1923:27 Patient arrived in ED.jw523:28 NONE, - Per Patient is Private Physician.jw523:30 Triage completed.jw523:42 Nils Argueta MD is Attending Physician.th423:44 Patient has correct armband on for positive identification. Bed in lowposition. Sitter jw5at bedside.23:45 No Physician assisted procedures completed.jw523:45 Labs drawn. (by ED staff). Nasal Swab Collected by Nurse.jw523:55 Fortunato Mark RN is Primary Nurse.jw509/2001:55 S itter at bedside.jw503:37 Sitter at bedside.jw505:23 Sitter at bedside.jw506:53 Sitter at bedside.jw519:17 Primary Nurse role handed off by Fortunato Mark RNjw509/2100:29 Fortunato Mark, RN is Primary Nurse.jw502:27 Sitter [...] Response: No adverse reaction; No change in fctyoxwogmu804:08 Drug: Geodon 20 mg [ziprasidone 20 mg/mL (final concentration)intramuscular solution jw5(1 mL)] Route: IM; Site: left deltoid;07:13 Follow up: Response: No adverse swtohjjbez892/2100:00 Drug: Geodon 20 mg [ziprasidone 20 mg/mL (final concentration)intramuscular solution tp2(1 mL)] Route: IM; Site: left deltoid;00:30 Follow up: Response: No adverse hgduhkpofm314:00 Drug: LORazepam 2 mg [lorazepam 2 mg/mL injection solution (1 mL)] Route:IM; Site: qg7imuqz deltoid;00:30 Follow up: Response: No adverse zmygtokpsb145:00 Drug: diphenhydrAMINE 50 mg [diphenhydramine 50 mg/mL injection solution(1 mL)] Route: tp2IM; Site: right deltoid;00:30 Follow up: Response: No adverse oolutkytna909:22 Drug: LORazepam 2 mg [lorazepam 2 mg/mL injection solution (1 mL)] Route:IM; Site: jlright vastus lateralis;10:33 Follow up: Response: Anxiety ngvpxpcmyjb669:23 Drug: diphenhydrAMINE 50 mg [diphenhydramine 50 mg/mL injection solution(1 mL)] Route: jlIM; Site: right vastus lateralis;10:33 Follow up: Response: Anxiety ygxwzoascyz408:24 Drug: Geodon 20 mg [ziprasidone 20 mg/mL (final concentration)intramuscular solution jl(1 mL)] Route: IM; Site: right vastus lateralis;10:33 Follow up: Response: Anxiety hfvwlewzfio5Sdfnand:18:06 Disposition: Admitted to Pzcxege025:06 Condition: stable, Provider notified of abnormal vital signs.18:06 Discharge instructions given to patient, Instructed on need for admit,Demonstratedunderstanding of instructions.18:06 Discharge Assessment: Patient verbalized understanding of dispositioninstructions.Patient has no functional deficits.18:33 Decision to Hospitalize by Provider.se18:53 Patient left the ED.jlSignatures:Vincenzo Luis, RN RN fbgElliott, MD MD Ladan Espinal Todd, MD MD za9PpwleFortunato Mark, RN RN tb4CeffnlxwAmi arthur, RN RN wf0WoRjybbBertha Collier, RN JOSE LUIS jlPutBreonna yu, RN RN ol0Exbpr, Danae, RN JOSE LUIS lr2Jggpx, Vani Styles hfCorrections: (The following items were deleted from the chart)03/1923:42 23:34 BP 104 / 79; Pulse 77bpm; Resp 18bpm; Pulse Ox 96%; Temp 98.7F;104.33 kg; Height jw55 ft. 6 in.; BMI: 37.1; jw509/2002:50 03:24 Reassessment: after PSA informed patient that [...] off of the bed bysticking her head wo4mziymfr the guard rail, very aggressive and tried to hurt staff, called staff"dumbsluts" and told us to "go kill ourselves". Notified, placed in 4 pointrestraints.tp2 Name Value Range Interpretation Code Description Data [facility] Supporting Document(s) ID Date Data Source [id number] 03/28/2021 12:00:00 AM EDT [facility] Name Value Range Interpretation Code Description Data [facility] rce(s) Supporting Document(s) Sodium 139 mmol/L 136-145 Normal (applies to non-numeric resul ts) [facility] Potassium 3.5-5.1 Below low normal [facility] spital Chloride 105 mmol/L 98-107 Normal (applies to non-numeric resul ts) [facility] Carbon Dioxide CO2 21-32 Normal (applies to non-numer ic results) [facility] Anion Gap 5.0-16.0 Normal (applies to non-numeric resul ts) [facility] BUN 21 mg/dL 7-18 Above high normal [facility] ospital Creatinine,Serum 0.7-1.2 Normal (applies to non-numeric results) [facility] GFR >60 Normal (applies to non-numeric results) [facility] Glucose Level 137 mg/dL 60-99 Above high normal [facility] Reference range is only applicable when patient is fasting Note the following drug interference: Sulfasalazine Sulfapyridine Can see falsely depressed Can see falsely elevated result with up to 17% results with up to 11% decrease in measurement increase in measurement Recommend patients be collected for this test prior to administration of either drug. Calcium 8.5-10.1 Below low normal [facility] spital Bilirubin,Total 0.1-1.9 Normal (applies to non-numeric results) [facility] SGOT(AST) 20 U/L 15-37 Normal (applies to non-numeric resul ts) [facility] Note the following drug interference: Sulfasalazine Sulfapyridine Can see falsely depressed Can see falsely elevated result with up to 10% results with up to 10% decrease in measurement increase in measurement Recommend patients be collected for this test prior to administration of either drug. SGPT(ALT) 48 U/L 12-78 Normal (applies to non-numeric resul ts) [facility] Note the following drug interference: Sulfasalazine Sulfapyridine Can see falsely depressed Can see falsely elevated result with up to 29% results with up to 10% decrease in measurement increase in measurement Recommend patients be collected for this test prior to administration of either drug. Alkaline Phosphatase 114 U/L 38-126 Normal (applies to non-num deena results) [facility] can increase Alkaline Phosp le vels up to 2 times the normal adult value. Normal values for children and adolescents are 2 to 3 times the normal adult value. Total Protein 6.0-8.2 Normal (applies to non-numeric re sults) [facility] Albumin Level 3.4-5.0 Normal (applies to non-numeric re sults) [facility] ID Date Data Source [id number] 03/28/2021 12:00:00 AM EDT [facility] Name Value Range Interpretation Code Description Data Stephanie rce(s) Supporting Document(s) Troponin I 0.000-0.056 Normal (applies to non-numeric resu lts) [facility] ID Date Data Source [id number] 03/28/2021 12:00:00 AM EDT [facility] Name Value Range Interpretation Code Description Data Stephanie rce(s) Supporting Document(s) Magnesium 1.8-2.4 Normal (applies to non-numeric resul ts) [facility] ID Date Data Source [id number] 03/28/2021 12:00:00 AM EDT [facility] Name Value Range Interpretation Code Description Data Stephanie rce(s) Supporting Document(s) Salicylate 2.8-20.0 Below low normal [facility] ospital ID Date Data Source [id number] 03/28/2021 12:00:00 AM EDT [facility] Name Value Range Interpretation Code Description Data Stephanie rce(s) Supporting Document(s) Acetaminophen 10.0-30.0 Below low normal [facility] ID Date Data Source [id number] 03/27/2021 11:58:00 PM EDT [facility] Name Value Range Interpretation Code Description Data Stephanie rce(s) Supporting Document(s) Ethanol Less than 10.0 Normal (applies to non-numeric r esults) [facility] ID Date Data Source [id number] 03/27/2021 11:36:00 PM EDT [facility] Name Value Range Interpretation Code Description Data Stephanie rce(s) Supporting Document(s) White Blood Count 3.5-10.5 Normal (applies to non-numeri c results) [facility] Red Blood Count 3.90-5.00 Normal (applies to non-numeric results) [facility] Hemoglobin 12.0-15.5 Normal (applies to non-numeric resul ts) [facility] Hematocrit 34.9-44.5 Normal (applies to non-numeric resul ts) [facility] Mean Corpuscular Volume 81.2-95.1 Normal (applies to non- numeric results) [facility] Mean Corpuscular Hgb 25.6-32.2 Normal (applies to non-num deena results) [facility] Mean Corpuscular Hgb Conc 32.0-36.0 Normal (applies to no n-numeric results) [facility] Red Cell Distribution Width 11.9-15.5 Normal (appli es to non-numeric results) [facility] Platelet Count 254 x10 3/uL 150-450 Normal (applies to non-numeric results) [facility] Mean Platelet Volume 9.4-12.4 Normal (applies to non-num deena results) [facility] Neutrophils% (Auto) 31.0-71.0 Normal (applies to non-nume frank results) [facility] Lymphocytes% (Auto) 20.0-55.0 Normal (applies to non-nume frank results) [facility] Monocytes% (Auto) 4.0-12.0 Normal (applies to non-numeri c results) [facility] Eosinophils% (Auto) 1.0-8.0 Normal (applies to non-nume frank results) [facility] Basophils% (Auto) 0.0-2.0 Normal (applies to non-numeri c results) [facility] Immature Granulocytes% (Auto) 0.0-2.0 Normal (alexander lies to non-numeric results) [facility] Neutrophils# (Auto) 1.50-6.20 Normal (applies to non-nume frank results) [facility] Lymphocytes# (Auto) 1.20-4.00 Normal (applies to non-nume frank results) [facility] Monocytes# (Auto) 0.00-0.90 Normal (applies to non-numeri c results) [facility] Eosinophils# (Auto) 0.00-0.50 Normal (applies to non-nume frank results) [facility] Basophils# (Auto) 0.00-0.20 Normal (applies to non-numeri c results) [facility] Immature Granulocytes# (Auto) 0.00-7.00 No rmal (applies to non-numeric results) [facility] ID Date Data Source [id number] 03/28/2021 12:21:00 AM EDT [facility] First test? UNKNOWNEmployed in healthca re? UNKNOWNSymptomatic per CDC? UNKNOWNIf yes date of onset? 03/27/21Hospitalized? UNKNOWNICU? UNKNOWNResident in congregated care? [place] [facility] UNKNOWN? UNKNOWN Name Value Range Interpretation Code Description Data Stephanie rce(s) Supporting Document(s) SARS-CoV-2 RNA Negative Normal (applies to non-numeric r esults) [facility] Negative results should be treated as [...] Certificate of Accreditation. Factsheets for healthcare providers: https://www.fda.gov/media/930492/download Factsheets for patients: https://www.fda.gov/media/366339/download The ID NOW Instrument is a rapid molecular in vitro diagnostic test utilizing an isothermal nucleic acid amplification technology intended for the qualitative detection of nucleic acid from the SARS-CoV-2 viral RNA. THIS IS A STATE REPORTABLE COMMUNICABLE DISEASE. Manual entry verified by Aysha Andrade 03/28/21 0020 ID Date Data Source [id number] 03/28/2021 12:05:00 AM EDT [facility] Name Value Range Interpretation Code Description Data Stephanie rce(s) Supporting Document(s) HCG,Ur Negative Normal (applies to non-numeric results) [facility] ID Date Data Source [id number] 03/27/2021 11:58:00 PM EDT [facility] Name Value Range Interpretation Code Description Data Stephanie rce(s) Supporting Document(s) UDS Benzodiazepines Screen Negative Normal (applies to n on-numeric results) [facility] UDS Cocaine Screen Negative Normal (applies to non-numer ic results) [facility] UDS Ampetamine Screen Negative Normal (applies to non-nu meric results) [facility] UDS Cannabinoids Screen Negative Normal (applies to non- numeric results) [facility] UDS Opiates Screen Negative Normal (applies to non-numer ic results) [facility] UDS Barbiturates Screen Negative Normal (applies to non- numeric results) [facility] Threshold Levels Benzodiazepine 200 ng/mL Cocaine 300 ng/mL Amphetamines 1000 ng/mL Cannabinoids (THC) 50 ng/mL Opiates 300 ng/mL Barbiturates 200 ng/mL All positive findings are presumptive and unconfirmed. Confirmation of positive results are performed only at request of provider. Unconfirmed results must not be used for non-medical purposes (i.e. preemployment and legal purposes) ID Date Data Source [id number] 03/27/2021 11:37:00 PM EDT [facility] Collected By: Nurse Name Value Range Interpretation Code Description Data Stephanie rce(s) Supporting Document(s) Color,Urine Colorl-Dk Y Normal (applies to non-numeric res ults) [facility] Clarity,Urine Clear Normal (applies to non-numeric re sults) [facility] Specific Randle,Urine 1.005-1.030 [facility] pH,Urine 5.0-8.0 Normal (applies to non-numeric resul ts) [facility] Protein,Urine Negative Normal (applies to non-numeric re sults) [facility] Glucose,Urine Negative Normal (applies to non-numeric re sults) [facility] Ketones,Urine Negative Normal (applies to non-numeric re sults) [facility] Blood,Urine Negative Normal (applies to non-numeric resu lts) [facility] Bilirubin,Urine Negative Normal (applies to non-numeric results) [facility] Urobilinogen,Urine 0.2-1.0 Normal (applies to non-numer ic results) [facility] Leukocyte Esterase,Urine Negative Normal (applies to non -numeric results) [facility] Nitrite,Urine Negative Normal (applies to non-numeric re sults) [facility] ID Date Data Source [id number] 03/27/2021 10:35:00 PM EDT [facility] Name Value Range Interpretation Code Description Data Stephanie rce(s) Supporting Document(s) Respiratory specimen severe acute respir atory syndrome coronavirus 2 (SARS-CoV-2) RNA Negative (qualifier value) [facility] and reported by . ID Date Data Source [id number] 03/25/2021 09:40:00 PM EDT [facility] [facility] Name Value Range Interpretation Code Description Data Stephanie rce(s) Supporting Document(s) Respiratory specimen severe acute respir atory syndrome coronavirus 2 (SARS-CoV-2) RNA Negative (qualifier value) [facility] This lab was ordered by Mayurvaleria heaton and reported by . ID Date Data Source [id number] 03/25/2021 10:10:00 PM EDT [facility] Collected By: Nurse Initials: cs Time Collected: 2142 Collected By: Nurse Initials: cs Time Collected: 2142 Collected By: Nurse Initials: cs Time Collected: 2142 Name Value Range Interpretation Code Description Data Stephanie rce(s) Supporting Document(s) Color,Urine Colorl-Dk Y Normal (applies to non-numeric res ults) [facility] Clarity,Urine Clear Normal (applies to non-numeric re sults) [facility] Specific Randle,Urine 1.005-1.030 [facility] pH,Urine 5.0-8.0 Normal (applies to non-numeric resul ts) [facility] Protein,Urine Negative [facility] Glucose,Urine Negative Normal (applies to non-numeric re sults) [facility] Ketones,Urine Negative Normal (applies to non-numeric re sults) [facility] Blood,Urine Negative Normal (applies to non-numeric resu lts) [facility] Bilirubin,Urine Negative [facility] pital Urobilinogen,Urine 0.2-1.0 Normal (applies to non-numer ic results) [facility] Leukocyte Esterase,Urine Negative Normal (applies to non -numeric results) [facility] Nitrite,Urine Negative Normal (applies to non-numeric re sults) [facility] ID Date Data Source [id number] [facility]: Nurse Initials: cs Time Collected: 2142 Collected By: Nurse Initials: cs Time Collected: 2142 Collected By: Nurse Initials: cs Time Collected: 2142 Name Value Range Interpretation Code Description Data Stephanie rce(s) Supporting Document(s) RBC,Urine None Seen [facility] WBC,Urine None Seen [facility] Casts,Urine None Seen Normal (applies to non-numeric resu lts) [facility] Epithelial Cells,Urine None - Few Normal (applies to non-n umeric results) [facility] Squamous Cells,Urine None Seen [facility] Bacteria,Urine None Seen [facility] ital ID Date Data Source [id number] 03/25/2021 10:10:00 PM [facility] Collected By: Nurse Initials: cs Time Collected: 2142 Collected By: Nurse Initials: cs Time Collected: 2142 Collected By: Nurse Initials: cs Time Collected: 2142 Name Value Range Interpretation Code Description Data Stephanie rce(s) Supporting Document(s) HCG,Ur Negative Normal (applies to non-numeric results) [facility] This is a Corrected Result --- 03/25/212206 --- Ur HCG previously reported as: Negative ID Date Data Source [id number] 03/25/2021 10:04:00 PM [facility] Name Value Range Interpretation Code Description Data Stephanie rce(s) Supporting Document(s) SARS-CoV-2 RNA Negative Normal (applies to non-numeric r esults) [facility] Negative results should be treated as [...] Certificate of Accreditation. Factsheets for healthcare providers: https://www.fda.gov/media/247604/download Factsheets for patients: https://www.fda.gov/media/733574/download The ID NOW Instrument is a rapid molecular in vitro diagnostic test utilizing an isothermal nucleic acid amplification technology intended for the qualitative detection of nucleic acid from the SARS-CoV-2 viral RNA. THIS IS A STATE REPORTABLE COMMUNICABLE DISEASE. Manual entry verified by Rachel Leslie 03/25/212202 ID Date Data Source [id number] 03/25/2021 10:04:00 PM EDT [facility] Name Value Range Interpretation Code Description Data Stephanie rce(s) Supporting Document(s) UDS Benzodiazepines Screen Negative Normal (applies to n on-numeric results) [facility] UDS Cocaine Screen Negative Normal (applies to non-numer ic results) [facility] UDS Ampetamine Screen Negative Normal (applies to non-nu meric results) [facility] UDS Cannabinoids Screen Negative Normal (applies to non- numeric results) [facility] UDS Opiates Screen Negative Normal (applies to non-numer ic results) [facility] UDS Barbiturates Screen Negative Normal (applies to non- numeric results) [facility] Threshold Levels Benzodiazepine 200 ng/mL Cocaine 300 ng/mL Amphetamines 1000 ng/mL Cannabinoids (THC) 50 ng/mL Opiates 300 ng/mL Barbiturates 200 ng/mL All positive findings are presumptive and unconfirmed. Confirmation of positive results are performed only at request of provider. Unconfirmed results must not be used for non-medical purposes (i.e. preemployment and legal purposes) ID Date Data Source [id number] 03/25/2021 09:47:00 PM EDT [facility] Name Value Range Interpretation Code Description Data Stephanie rce(s) Supporting Document(s) Ethanol Less than 10.0 Normal (applies to non-numeric r esults) [facility] ID Date Data Source [id number] 03/25/2021 09:17:00 PM EDT [facility] Name Value Range Interpretation Code Description Data Stephanie rce(s) Supporting Document(s) White Blood Count 3.5-10.5 Normal (applies to non-numeri c results) [facility] Red Blood Count 3.90-5.00 Normal (applies to non-numeric results) [facility] Hemoglobin 12.0-15.5 Normal (applies to non-numeric resul ts) [facility] Hematocrit 34.9-44.5 Normal (applies to non-numeric resul ts) [facility] Mean Corpuscular Volume 81.2-95.1 Normal (applies to non- numeric results) [facility] Mean Corpuscular Hgb 25.6-32.2 Normal (applies to non-num deena results) [facility] Mean Corpuscular Hgb Conc 32.0-36.0 Normal (applies to no n-numeric results) [facility] Red Cell Distribution Width 11.9-15.5 Normal (appli es to non-numeric results) [facility] Platelet Count 264 x10 3/uL 150-450 Normal (applies to non-numeric results) [facility] Mean Platelet Volume 9.4-12.4 Normal (applies to non-num deena results) [facility] Neutrophils% (Auto) 31.0-71.0 Normal (applies to non-nume frank results) [facility] Lymphocytes% (Auto) 20.0-55.0 Normal (applies to non-nume frank results) [facility] Monocytes% (Auto) 4.0-12.0 Normal (applies to non-numeri c results) [facility] Eosinophils% (Auto) 1.0-8.0 Normal (applies to non-nume frank results) [facility] Basophils% (Auto) 0.0-2.0 Normal (applies to non-numeri c results) [facility] Immature Granulocytes% (Auto) 0.0-2.0 Normal (alexander lies to non-numeric results) [facility] Neutrophils# (Auto) 1.50-6.20 Normal (applies to non-nume frank results) [facility] Lymphocytes# (Auto) 1.20-4.00 Normal (applies to non-nume frank results) [facility] Monocytes# (Auto) 0.00-0.90 Normal (applies to non-numeri c results) [facility] Eosinophils# (Auto) 0.00-0.50 Normal (applies to non-nume frank results) [facility] Basophils# (Auto) 0.00-0.20 Normal (applies to non-numeri c results) [facility] Immature Granulocytes# (Auto) 0.00-7.00 No rmal (applies to non-numeric results) [facility] ID Date Data Source [id number] 03/25/2021 09:55:00 PM EDT [facility] Name Value Range Interpretation Code Description Data Stephanie rce(s) Supporting Document(s) Sodium 141 mmol/L 136-145 Normal (applies to non-numeric resul ts) [facility] Potassium 3.5-5.1 Normal (applies to non-numeric resul ts) [facility] Chloride 106 mmol/L 98-107 Normal (applies to non-numeric resul ts) [facility] Carbon Dioxide CO2 21-32 Normal (applies to non-numer ic results) [facility] Anion Gap 5.0-16.0 Normal (applies to non-numeric resul ts) [facility] BUN 12 mg/dL 7-18 Normal (applies to non-numeric results) [facility] Creatinine,Serum 0.7-1.2 Normal (applies to non-numeric results) [facility] GFR >60 Normal (applies to non-numeric results) [facility] Glucose Level 96 mg/dL 60-99 Normal (applies to non-numeric re sults) [facility] Reference range is only applicable when patient is fasting Note the following drug interference: Sulfasalazine Sulfapyridine Can see falsely depressed Can see falsely elevated result with up to 17% results with up to 11% decrease in measurement increase in measurement Recommend patients be collected for this test prior to administration of either drug. Calcium 8.5-10.1 Normal (applies to non-numeric resul ts) [facility] Bilirubin,Total 0.1-1.9 Normal (applies to non-numeric results) [facility] SGOT(AST) 27 U/L 15-37 Normal (applies to non-numeric resul ts) [facility] Note the following drug interference: Sulfasalazine Sulfapyridine Can see falsely depressed Can see falsely elevated result with up to 10% results with up to 10% decrease in measurement increase in measurement Recommend patients be collected for this test prior to administration of either drug. SGPT(ALT) 52 U/L 12-78 Normal (applies to non-numeric resul ts) [facility] Note the following drug interference: Sulfasalazine Sulfapyridine Can see falsely depressed Can see falsely elevated result with up to 29% results with up to 10% decrease in measurement increase in measurement Recommend patients be collected for this test prior to administration of either drug. Alkaline Phosphatase 126 U/L 38-126 Normal (applies to non-num deena results) [facility] can increase Alkaline Phosp le vels up to 2 times the normal adult value. Normal values for children and adolescents are 2 to 3 times the normal adult value. Total Protein 6.0-8.2 Normal (applies to non-numeric re sults) [facility] Albumin Level 3.4-5.0 Normal (applies to non-numeric re sults) [facility] ID Date Data Source [id number] 03/25/2021 09:55:00 PM EDT [facility] Name Value Range Interpretation Code Description Data Stephanie rce(s) Supporting Document(s) Troponin I 0.000-0.056 Normal (applies to non-numeric resu lts) [facility] ID Date Data Source [id number] 03/25/2021 09:55:00 PM EDT [facility] Name Value Range Interpretation Code Description Data Stephanie rce(s) Supporting Document(s) Magnesium 1.8-2.4 Normal (applies to non-numeric resul ts) [facility] ID Date Data Source [id number] 03/25/2021 09:55:00 PM EDT [facility] Name Value Range Interpretation Code Description Data Stephanie rce(s) Supporting Document(s) Salicylate 2.8-20.0 Below low normal [facility] ID Date Data Source [id number] 03/25/2021 09:55:00 PM EDT [facility] Name Value Range Interpretation Code Description Data Stephanie rce(s) Supporting Document(s) Acetaminophen 10.0-30.0 Below low normal [facility] ID Date Data Source [id number] 03/25/2021 07:15:08 AM EDT [facility] Name Value Range Interpretation Code Description Data Stephanie rce(s) Supporting Document(s) Discharge Summary [facility] WZTYBs9xLjKAGjRy42/VVDfcYCKlz1XuEZlhNWt0JIsnQVJqJ5TkAEB7sG5wXAQ2XNeBJvVyFnLyDAF7 lbm [file] jcTO8B7jsmlGTiQKuCNLk++/media marketing manager//ue3MwemEbJeorFgLVewTkz/pK6IG0Iag5XXO/WOIEjGslPHMFZG6 [file] [id number]i= ID Date Data Source [id number] 03/24/2021 09:16:00 AM EDT [facility] Exam Number: [id number] Reported By: - SHIVAM OSCAR MD Signed By: SHIVAM OSCAR MD Name Value Range Interpretation Code Description Data Stephanie rce(s) Supporting Document(s) ID Date Data Source [id number] 03/21/2021 04:51:30 PM EDT [facility] Name Value Range Interpretation Code Description Data Stephanie rce(s) Supporting Document(s) History and Physical [facility] XHFEBp5nLbOWPvHg36/VVMdqUZLfs1OrIObkUId3HGfwMCPxF7IvCYB8fR9qNLB3MQqNCdFqIpIuLFMi lbm [file] AgICAgICAgICAgICAgICAgICAgICAgICAgICAgICAgICAgICAgICAgICAgICAgICAgICAgICAgICAgIC SxHKRpSD3KNHTzPVZhBDPhPBMwMLCfEWQtVIVtTIDb ICAgICAgICAgICAgICAgICAgICAgICAgICAgICAgICAgICAgICAgICAgICAgICAgICAgICAgICAgICAg EIIqRONgQNUlBCXfIYXtJP2NGDLyDKNxLIYxQNBaCLBoLAGyEVQqNLPtCOQnJGOrAPEgCLWrCDNpMQWo ICAgICAgICAgICAgICAgICAgICAgICAgICAgICAgIC UrDWNxPDFqPTJvCPZfMVRsIFNjSFGuTXCmMV0AVVMrPJPgVNDbWUGpWXPuISMcIPEePQWhFMXsRNKuOW AgICAgICAgICAgICAgICAgICAgICAgICAgICAgICAgICAgICAgICAgICAgICAgICAgICAgICAgICAgIC YeYQAgVMEwIU0KXKKcTDBgQREmWPKbSUWpIOPjEVXp ICAgICAgICAgICAgICAgICAgICAgICAgICAgICAgICAgICAgICAgICAgICAgICAgICAgICAgICAgICAg MGWzFRShQWIhAFYdVAXvNZCcMX9XWGSxOJXcTDLpMNGlGSQiXRQxQLFoIEUzVCDhPIVvMTWxMVKxJVUw ICAgICAgICAgICAgICAgICAgICAgICAgICAgICAgIC LcXVMjBHFwVPBaRGJzZGYcHLLxCHPwOJTgYITpAW4FCTUoAFMzTRKlNPIrLTIiVYLzBLIoGWJjBDQjAT AgICAgICAgICAgICAgICAgICAgICAgICAgICAgICAgICAgICAgICAgICAgICAgICAgICAgICAgICAgIC SnYADnMEOcQGNnTQ9NTDKqETJeFLWgSOVxRYKkSXAx ICAgICAgICAgICAgICAgICAgICAgICAgICAgICAgICAgICAgICAgICAgICAgICAgICAgICAgICAgICAg NSUgPNMkFKPwAMAzZCXsJYHtEJPjGK0VGCUdILGxZJTnGMZlHZArCSSmSHMeMTHpTQPzBUMiOGVqGEDn ICAgICAgICAgICAgICAgICAgICAgICAgICAgICAgIC IoSSNzKRYsJSSzPQBhOBCjZQAoAYTyVZTvVEWrDQMwXC6YYKUyGHPtLJZzYPOnBHYgDZKlHSIuJWJdTC AgICAgICAgICAgICAgICAgICAgICAgICAgICAgICAgICAgICAgICAgICAgICAgICAgICAgICAgICAgIC RwYFUmQFNcJCBnEVGqOE5RYX92bELay7D4PNWnJZ2v dyc/Sw5FSJmjtlYvdJHeRD0QYmNfGD2snl2RGaRbMW3nri2TDOcLUuLiV3A3uDNdKNCeSOLJNkTcJ43k CSlmXs11FMvuYOEwMuOhNXw1Se9KFxLyK3uyHEEdZnJ2WZAcNgI7YPSlXsT8BVUmGgYhIMDlCGAcNDDh OICUOP4PLpVaG3DriA78UEXZHy3+DQplbmRvYmoNCj D7RENvv9PhWGd7SM8MIARiHevpz5ZdJjyqKSHIWVbgAA6LSNR0ZNQ2AWBvEb9ULIBmP864fwFoDP0HBf 4BQtZpWG8fmz6ODrtpDSDyYjpXCsh8VKuqQS6IlDEgVJpTBwDxDqgfOFHkpMQYDPNjPYCcrGjjQAXyTD YkWR8tYM5hMNJnJYMqKaC6ZZCTNS5LCMWbRQBjxULp QVNaQIXYAU6RIOilEYV3VCWsktSaxOBxAKcmQX4LIBIygpOwHkFnZCYPTRi+Gy5GAC6jk3AoBZgaKEXl BI2nrr8EARfTPqSpO8I8nDYyK0Z1ZOyhUi7TSWNkDSHlTfJrJUDPDZhgVN3BXZ5njnU7YV4OzTBbPULx BGUjcUIqWSw6B41vfPDdVWykBH0MXTP+Dillon+Pg0KIC EcDKQkBDBuJoUqIYKGTxDwZ3XwU9EYb7OeK5ZiBJ12cOuqgvSvRCriOC0HFO1cNUWbBPJBBN3LqHDvvJ 2bubVbPcAaCPTCVcXyP19lfCIuUTObCVY2FPVsFh2SQLFxH6EtxwCheGliomYrTRPkBEDKBC9FPVqjxn GclTStbCkdQJ32lHqwPC9SLo4IOxWzRQ6zio2HlRRp Iq7GKEAjNA6TEDPfMKSjCTZcAZF6LGJhAqAwNWxlIAMlUKFhQPZ6WRHdUSPhHY8ZHkWuGVFjIxWqVSyg LXQrBVZmnh0UAPHgOZBjEzD2PKRbIRAzUUZnWGwdVSClDBJtNLJ3ZFNsZBHiRR8KUnNeKHMpVMYsHTke ICKnTWMgwv0URXZxSOEzEnTzYRSvUKXkYCIuOWeiKF CwHFN5UGm3VXKpMTShLS4HQrNhQBUyWCN6KGAeCOGpOMSall2VBWGhXOEfOKMxPPWnLKFqTQVbEGfnYQ UuCQT3EcM2BSPtACLuZX9KPnXeEKDbFGD7EXEcMLQlKCTgmv1NBSZrIWHfNqvhAJXiIASsBCSmPSglGB XvYCO4RNQ7XCPzBCSsGS1DLbAdBGXjLAHcAKIeZQXj RIBgwe9XEDCsLXDmHnAsCZDdGBLfRBQsNHrpGPIiUHJ4JDl6PSVoXLFmQJ8PWeZdELTpNUS4OKWhVOOe BHHnqx4PIFQpXEKzNnHiOYUlUIUuELUuGOvdVJGpZPK7RZDvFMEjGLNuVX7MNqHfUGGcPBjkCcycTSXy ANAgwf7OTCWfVNCfTGz8YOJhVHNoSMQhGBzuBPSvOM R3TIl7KLSjYQFqIH6NTvEaBHTeLRmhTitmVVXaXCXkkp7CZCIlAEHyMDl9VXRbVHVaBZSeBVtcXZFbEN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 LPICRg3gSxNRHjUk85/QPKiiFZMrq2EuWZliTIt7OCtrOYTuI6UtAVF2wO2vFPL6FPmCUpMxSmRkWOG3 [facility] [file] ICAgICAgICAgICAgICAgICAgICAgICAgICAgICAgIC EdLYAeEKGiCVUvCHGpSIJvVHQfHJ4VWALyJMTtBPXxTIHnKFLoTDCcGBMyGTTxLKEcWBVuCORtSRPiXO AgICAgICAgICAgICAgICAgICAgICAgICAgICAgICAgICAgICAgICAgICAgICAgICAgICAgICAgICAgIC NaFB0JQTTnDRIdMSAoYWUpNZUtNLSrGLIkCUHkGLKw ICAgICAgICAgICAgICAgICAgICAgICAgICAgICAgICAgICAgICAgICAgICAgICAgICAgICAgICAgICAg JRPuAIHsOBXqITZzEI0WCBMcISYzDMWkICLqZOZxCFBlLGSaBHNvAVQpAOYxNKRhFNYhDVDtQDOwWXKa ICAgICAgICAgICAgICAgICAgICAgICAgICAgICAgIC RlKHCoXJGsBZEnPTRxHSKbPCBsWWUnIP0AAKIbMPFjMCSgSXYnZJLoPBElWXMqUITmXQZzZYQkBTLgFY AgICAgICAgICAgICAgICAgICAgICAgICAgICAgICAgICAgICAgICAgICAgICAgICAgICAgICAgICAgIC MvLXZpMJ4USFDsLPAxIEKsEVWfQYGyEWZyIMByMOWj ICAgICAgICAgICAgICAgICAgICAgICAgICAgICAgICAgICAgICAgICAgICAgICAgICAgICAgICAgICAg OKNwFRZiOPWfFIBtSBCmSA9TICIpMOTpPXFeHWQbTXKqUCRzYHPwXUNoFSMzARGsIMFcMDXwHRPhAPQf ICAgICAgICAgICAgICAgICAgICAgICAgICAgICAgIC TqSEBeVAFnOJIrZFCiCXAoBGNiGTVmFKHoUX0SVWJdLNNgETQiVVKcZBXdPMHlQWCoWYFtKVIlHVOmUU AgICAgICAgICAgICAgICAgICAgICAgICAgICAgICAgICAgICAgICAgICAgICAgICAgICAgICAgICAgIC PoEIHwDITzYS4DVDFaXMJyXIOgNGUpEMNjXYWgGTLr ICAgICAgICAgICAgICAgICAgICAgICAgICAgICAgICAgICAgICAgICAgICAgICAgICAgICAgICAgICAg HYXoQYXrPGPrWDUtBOVcAPBoTQ2REXAuEKGvHMJnCSShNVFbDAQkRHAuWZWqNEJvCZEfQPUfGLLfTWNb ICAgICAgICAgICAgICAgICAgICAgICAgICAgICAgIC ZyEGFvBQCkYCAhJOYcEZMiAKEpHSLlCNHpCCLlDF4ZLB76fMWvk3F9MZKdBW5lgvw/Qu4TGUqlwsPimX AwQJ2VDhCuSL8aad7GMgFvTQ8hzw9SWQcCAzRaC9K9hVXoICOkUWRCOhPhU72rKZjfPy53ZFleJLPtBg AbIGd8Dc3OQuSpK7alZKEbQtR5OCWhEhUoSYafAZ6I p8KtzKLoHYh+Rf6BEX3fi0LtNKgsDNKhGF1nsf4ALQyRHuEjF3YsuxG4RNT3DPUxPf2MIYBcHWGxwMNf BrSyWQSMYfDcM2DlqS37FSZUGv7+BWyzghNmLknCAxD3MGAbk0WeSQx0UC5UJSPrKHo4pKGaFTPdP1Ru o3UxPq58TKGmFihmGYsgBC8vS9Prh0Hwh4ssTM1WMV P4XQskHE9lMIWmINLrIgMkHXNBOP3ZGYWhZLEuvPLiYCBnMOMTSU1PBUjiEHO1LxebnoNqtLOxIQleVD 9QYXJlbnQgMjUgMCBSDQo+Kn8DVC5yn5SeFKmwYxYiCP5myn8EUKyRWjUaR8U0wRYwE6H6YBmpBk6WPS QnMFIhWrHvOVUXMJplVH8EDF4jbpR5YP4VzUDvZVHv HZCohFLdQVp2P33plEAaIAlxMG0DIUI+Dillon+Do5VZZVrCFXaVSKvDvJzYSYDIfEeR8AzT9KOc4AwA3Kc HS48jQvctcNqPJwpKM0RIT9iGQAhJGDBEW7MiTWpxD8zrfNwHLOmQRYENdWkT31dbUWcKSRbWKB8NJJf Ut6LLBRvU0UbnnOmiZdtomYmZYKpQWNPZP0RKBhhdm RvfQDqoVwoJA01dKcwVT8UWu8FSrTrVP6sga2NeBRdGe5GKWKkAW0WOOGtNRYqRWVvSNI8LYXySzOePJ thONGjILApWIJ8QFPdSFPmDV6AJnOnPSGtNQg5VQmaWMPkYQDqwu3DFHAlMXLeFTxiXQPvAHVwYLArZK osXWNiOWGlSVG2FEKtHLLzRY5YYvPzEQYeGZD8RnKn AVFgMYPgnr6UMOOaFVPwYqBoRFBbVRFpKNZjNUmnQKVvFEQjBDs8PTYvZROcMA8SQgIrSCBtVXH0LRjc UTDbAIThst0EXGFsAXKnHyt8CzEoLHHaYGTrURuuOSXoQYY9JCJrGGMzOWHcXZ6RPuKgVPIsLLJxWvrc ONGyQFFtdw0YHBDqLBHiUKUdMCNxMSUqTKAxHGydGV SkNXD2QntyCOOtTKZfZM7KOxLrCJYaLSM5YRnbVCEaRDMifb2FXEErNVNnFvQ2EwCoHFLwBOHaICioAB WyALJ2YrM5NGDqQORdPF6WOeGbLCTqMAn0MtNbEBJnJSDnjg2TKHHeHZLnSXBwQNNoMKHxPZPeOKjcRQ VvORS0WXe4SORlUKJuZH7QQsKcJAIkPJitNRIbRBIg QRDkhw0GGOAvTZVuOSU6TLJeAMZcPASlKEziGLEbWWL0Dzq9TURfDTApNZ3HLtNkRDSkPSo1RlziSYXb QHMubb7QUJJgSKMaSCB2DBBxANGtNYJdRWlqMMFiDJEbABC0XEJpADKmBF8PJuFaBXNoSYY9NKzzQXCg ZJMiyi0WDAHaIOOzHvM9ZxUaFEEzFVTdMEm8lhVkdE DjJVm2DX1AX9CntkKdPziOSx6Mh575NRZ0TIObGw6RP9btFg0nYBTvUEEONd8XDMm5YEQqUjLsMNZ0Sr JzJRAyAUW7MYVuIdEbNoXqQbQuNKZ+GTy2LNLhPqB7ZvycDvD4FZDuJuS0VmB2JCShSwY5G8NnZo8yTA ANCj4+UQuenDJrrDrbQPPRNaJiLlPeFLtsWJBXUf2R ID Date Data Source [id number] 03/15/2021 02:56:41 PM EDT [facility] Name Value Range Interpretation Code Description Data Stephanie rce(s) Supporting Document(s) Discharge Summary [facility] CYTJLx7mVxWTQfSa35/WDZctPIIwa9SmSWfiEVs0NQuhORAxF7LuOIK0vE0vSMT2YUbUQrLgOmWxZAZ3 lbm [file] Cj4+DBuqgCWrjKhiHZKBZsKiEDN4MCreWBINSd9F ID Date Data Source [id number] 03/15/2021 01:54:16 PM EDT [facility] Name Value Range Interpretation Code Description Data Stephanie rce(s) Supporting Document(s) Progress Notes [facility] IAXXFe7rNdBPTaMs60/YSWqqJTNvp8CzNLnyTKs4MSwdYRXxJ1FvYNR3qK9gUSO5FAyEDxExDwRmDCE9 lbm [file] x2LQG1GlS3WLy+BE1yLBp+Ej3Yd6JsksM9taFvAZp0VkBuGJkxSHQSCf3E ID Date Data Source [id number] 03/15/2021 01:22:18 PM EDT [facility] Name Value Range Interpretation Code Description Data Stephanie rce(s) Supporting Document(s) Nursing Note [facility] CVADWt0gSjAIWmEw49/QEExlXFJeg0VhHGnoZBh6JPyrVNKyG4CrNDV6vO8hCXU7MPzVYtVoSxZpULP5 lbm [file] AgICAgICAgICAgICAgICAgICAgICAgICAgICAgICAgICAgICAgICAgICAgICAgICAgICAgICAgICAgIC PyQOEcFRYuKEPzOHAzRYGaYATnBV9HLMMeUAGcLUNpYVPgZYKtOZEhOVWgOBBvZOAaWEKzMQKcJYOxMG AgICAgICAgICAgICAgICAgICAgICAgICAgICAgICAg RLUnUXTfTUHjDKEyWSNmWZCvAAWcETXtZRLwRKIrLJ1DXHYiZTCbOLKyWMOrTZOzGRBcNLQzULIpAJKu ICAgICAgICAgICAgICAgICAgICAgICAgICAgICAgICAgICAgICAgICAgICAgICAgICAgICAgICAgICAg SFFxGHXuGVIeZGCaZM3CAUSvTUJpTRJoGJEcTKSuPA AgICAgICAgICAgICAgICAgICAgICAgICAgICAgICAgICAgICAgICAgICAgICAgICAgICAgICAgICAgIC CaIIWvWNRxGUSmHYFaHMRdUMDcINDeMP0IOQYcCZHzKASjEUWrWBMiKLKhWPGyQMUhHKWkPZReSHMxVZ AgICAgICAgICAgICAgICAgICAgICAgICAgICAgICAg JMZyUCRyFRBbZZSsGPEoYNXfZOAbZDYgDWQvVZItYLIbLY1TRBXtXTZnOPQsSFHhZVKwRFIuAMCaWEPd ICAgICAgICAgICAgICAgICAgICAgICAgICAgICAgICAgICAgICAgICAgICAgICAgICAgICAgICAgICAg PMInRKCsADBmTQMhZHPvKI9AAYNbHBCmMFZvPCKcQE AgICAgICAgICAgICAgICAgICAgICAgICAgICAgICAgICAgICAgICAgICAgICAgICAgICAgICAgICAgIC QwEBLiZWZzBDOhKMRpWRItJYJeWDIzRJYvZE7OGWZcRMTjMAWoTAOtGTUeIMCtXGLyICCfIRPqTTUdBK AgICAgICAgICAgICAgICAgICAgICAgICAgICAgICAg UFBuPRJiZJGrMELxBXSyQCZmNEXkNMZnWTTtXBQuLJBfJAXyMJ0BDCBsMUBtYYTtVEFkCGWaHUWyQRAo ICAgICAgICAgICAgICAgICAgICAgICAgICAgICAgICAgICAgICAgICAgICAgICAgICAgICAgICAgICAg TKLfOCBnEOBiBKGpEFItZYCuDR5IXTUaXZJlFGApNT AgICAgICAgICAgICAgICAgICAgICAgICAgICAgICAgICAgICAgICAgICAgICAgICAgICAgICAgICAgIC ZtESOtFPSiYQVcVXZzFBCoAIIeLSDjMFFfKKDdJU9HMU04wDPvg4T2AHAxFF7anyw/Ow6TKAutogUapT RcAP3QOnMiTT4rlk8BHxCuWU0xtk6USYsXLnTpQ4S9 dJXuNTHxOMCPKoRzT98oFVugMm66APfjIKAcOnOgAOe9Ac6KOxZhE6bjXTWqJvL4OWTvUwCmKVvkJT9I e9ZdjLXjFYi+Uk1FDW6yn0QeFRbeRIYqIT0uhk6DFBuMBzFeQ2YkkoJ6ZWJ9XHJpSz5CCFUgXHMofPXi WBAuYBQOWlAqK9ZncD53DKQKYq9+DQplbmRvYmoNCj P8QFUrd1NdPUt2TM2WHFGaCAu4aDXzZyDgu7rdZiTXs5RkIFX4LJBaEscfGNFwrVlseF9yEKDHJJZ0KJ vsOK9qVJKyLGSwHqZlIIOOXR1DZSDePOBcxFTaYGAlNXNAJM8TJByfKLI1IavmglLxpUXmVHdjHJ6UGD JlbnQgMjQgMCBSDQo+Mz0SQM8sc8NkPAbeEwRvZD0v ce3JNTpWZtWyR0C3yFKkB1V7RAnnSa4VEJOoOEQqSeUbNJAHMJzcAT1IIM9gzeR3ZH5RcMAsFHDpHVZt iGNrJQi9R47tpYCzRFnoUX4YUQF+Dillon+Ua2ZCONaLIOjKCLvMuAvQQZCXhOqO0XfC4SOu1ZeH1QwOQ78 wLntblTyFNraKQ7XSI4lDTMeSHFIIA0WoSXioI4qep PcSJFgNKUOGhGmI78wfNOpOWXoQGLoISZmGa2SVEBmO1TluzYcyLhkwzZgIQYgVXQJGM4XNHqhdoSwoK CvzTttXW64aFwqHV4RLm0NFqUuKV4asm0KePYsAe8AWXIgVf2TJJBdDJXePRPnGXA4CKLrDpGoQCpvGU LnPFMrPIF8KIEgNTZuKJ6LQnZwLKTcJxDaZkJoMBGx ZRMued9TAGPmKPDjNHo3VDTzGJGyQNJoDExyULPyFHQnXJM6AZMcYNFrTP4VQoBfGIQfUGQqHLTsYOSy XWSkkr6RTQAlSNRcHdLjRpJpLZFsRKRkDWwbSQTpUOKnGDT5JNIjONLqRQ9UCyGrULPjWQNvUmAtJHZm TVPabz6KKFLuWEXwZvB2TAPvVAHcAQOjMGbsXUQxQB L4XMW8SAZfYHTqRT7IAfDgTNQtGCO3SAJzDSWtMWLhsj0LPEDyYAKpWFk4THUqBYKnHILoLJiqKDTlXY D7BvQ3UMHySMUwIH3OZwFcHUUgZAe2UMIbTSDiOCTzhu0JEAUyPBNvVbo2ScAyQLHcEJItHRduCHFfYY P1QRQgQAGtQIEqUQ9WWmDiHCZiGJvqYPjlHVRdABZy oe9YNOPcKTWeAGM4MTDuQVEtOHLjPVcwSEIaKNQ1Iwx8IYWbPINdAK3KEsXtTEZbWFs5EPcjVMIvXYZj ab4RNGHrQYXnMKg8ZkTvIWMlBSXjYPsoNJGqVODzLRMbEVPaRTAaPE1WGjIsWROxLfR2IAkvRUIlSHPk bp0KGHSbECUlQAz6XpKeHVZaRHZwSNomQWAgOHOnZM Z4PCBaJDDyYS8KIyUiESOwUvFxLPYwNIMfVESply4ZuAPgcEesta4BHObBFz4TgVquYES8JAolUw9dxQ FbClSsEOUFDz9AizDeLRHzOHHHWIeqYWYiUQA9EPBeXWX5HlVfN6LuOmZsQ1OqTmSfRSMgXHE7EPK7Uj P2Kbm4UlFbQSW0DjB4DiNfYLWwNiMkGIWbBFU4Rio4 NDg+YT3sYYo+Dl5Zj1UqikQ7jzTyWSxzZbJ6Mk4YFMPSI4RIMd== ID Date Data Source [id number] 03/15/2021 12:37:15 PM EDT [facility] Name Value Range Interpretation Code Description Data Stephanie rce(s) Supporting Document(s) Care Plan [facility] ESIFPa8nGeDGDsTw92/BEBxvPOWxg3JuGKygBJn6KNgiVLEhC5ZaIXV4zY9nBDE0FLvYNiGyZgPgXOD5 lbm [file] YLxxZNU7BhDeTZMtPKI2O8I5Gv7kYFQPWx3+YEtsiQUzsHoaPVHFWxC7CbQ8OVnhXDRVPc2M ID Date Data Source [id number] 03/15/2021 12:11:43 PM EDT [facility] Name Value Range Interpretation Code Description Data Stephanie rce(s) Supporting Document(s) Consults [facility] HLNBIq3gKeHPXpIp08/TLUhrYYQwg7ZhIHqeMYt5PJhyJXRnN6WkRUT8fK8hKEI9SPoMWfUyJoVnJYB3 lbm [file] ICAgICAgICAgICAgICAgICAgICAgICAgICAgICAgIC AgICAgICAgICAgICAgICAgICAgICAgDQogICAgICAgICAgICAgICAgICAgICAgICAgICAgICAgICAgIC AgICAgICAgICAgICAgICAgICAgICAgICAgICAgICAgICAgICAgICAgICAgICAgICAgICAgICAgICAgIC AgICAgDQogICAgICAgICAgICAgICAgICAgICAgICAg ICAgICAgICAgICAgICAgICAgICAgICAgICAgICAgICAgICAgICAgICAgICAgICAgICAgICAgICAgICAg ICAgICAgICAgICAgICAgDQogICAgICAgICAgICAgICAgICAgICAgICAgICAgICAgICAgICAgICAgICAg ICAgICAgICAgICAgICAgICAgICAgICAgICAgICAgIC AgICAgICAgICAgICAgICAgICAgICAgICAgDQogICAgICAgICAgICAgICAgICAgICAgICAgICAgICAgIC AgICAgICAgICAgICAgICAgICAgICAgICAgICAgICAgICAgICAgICAgICAgICAgICAgICAgICAgICAgIC AgICAgICAgDQogICAgICAgICAgICAgICAgICAgICAg ICAgICAgICAgICAgICAgICAgICAgICAgICAgICAgICAgICAgICAgICAgICAgICAgICAgICAgICAgICAg ICAgICAgICAgICAgICAgICAgDQogICAgICAgICAgICAgICAgICAgICAgICAgICAgICAgICAgICAgICAg ICAgICAgICAgICAgICAgICAgICAgICAgICAgICAgIC AgICAgICAgICAgICAgICAgICAgICAgICAgICAgDQogICAgICAgICAgICAgICAgICAgICAgICAgICAgIC AgICAgICAgICAgICAgICAgICAgICAgICAgICAgICAgICAgICAgICAgICAgICAgICAgICAgICAgICAgIC AgICAgICAgICAgDQogICAgICAgICAgICAgICAgICAg ICAgICAgICAgICAgICAgICAgICAgICAgICAgICAgICAgICAgICAgICAgICAgICAgICAgICAgICAgICAg ICAgICAgICAgICAgICAgICAgICAgDQogICAgICAgICAgICAgICAgICAgICAgICAgICAgICAgICAgICAg ICAgICAgICAgICAgICAgICAgICAgICAgICAgICAgIC EsJSTsFNViTUJlZZKxGOOwRCFgJFQnDBWrGWLmEJHuXYs5P0buTOUhAHNiYX5vJFx5Li5+DQoNCmVuZH R4rnTftH4INL9qq4WzILolAGRas1BsDSc8BL5BGPDvRFgaQH3EPWtdov8UMKLgMUElbSQBn1vkDyRcKH V6HONySvprIW2FKDLbK7fvkoWxADVyLKCZAZ4AEoWz E3VouW63SRGVNr4+UEajhpFyRhsSPcP9ATQnz3TlLKj6GD0DYTKuLpfim8QjCCzqCLCWQPmsCB4TBSO7 AVS9QDGeLa1OSGSeD577zcKlVV7QNu5ZQbFcDQ0gna9KYCbbXRAoNlyJXal1KVxgRA5JeKXmYLfZx85d nOr6zhEiuKFPQAVnGQ8pT31nCXxcST4LCDJ3EUthSG 5lDMIpHBXjExTkEHSWJT6TDFQqDZQhyJHiNLQjOFULIW5NLUklWIQ3WjfduzTidNQvSQkeVT6AQALfsm QgMTcgMCBSDQo+Sr7XON6eg8VuQZhoZFAhHZ3joc0DIMqJJfYpJ1F9xOKuV6K6VFgqLn5RXTTyGKJeKS YnKXNESKadBJ5QYB8trhA1SI4CxNKvCZVxEUBnhWEm POd0U25sqWErANaoWX6MSIY+Dillon+Qf2UDYLkHPGhSHUhDmMxDGNWDaPdP5EjQ3FYj3AoJ1PfIJ59dKbh rhBmQMqiAV6ZID6vTNNdNZSBNA8NjQCtxB1gsiMjOsGoDMICEvSxX81osLLyJUKiGAH2PRVsZw3LBAZc B0IupxYpwVnhfaGuCRLiDELFLS0OLRibtsVvmVGanI zkAJ61pKzoSJ2FXm7WDmImEC1snq2WhAXoRw2BBJDpPZ1YSDYtJWOgLDQeZNO1UKJmKqHlXLjxBDPvXW AtGCR6RSJcIHLjMH3RWcUkIQHgJTB3LMnhCXEmJMUduy3TPNWaZWFfJbK2JtRzPNVuKGQlTGmpEKPrAN NuDYE0VPPwZRWtED0YVyQrTEQqEIDaQTJvVFVdLOCc pf5FXLSdNOIkEOHxITQkEFTgVZHoKVbiFAGvUUCtZjC4UMIaUCIhOV9DIuVnACNvAJG5GxclNGDyWYWg xg7YZUPdGQFsCtj0UyOxDUKjPRTbDZysOJPvKUHcHtZiUOBySNWuDY6WQuBqKCKfIMW3FSbmBDYcWOMu rf4UHFYdNFYnEGB1HUOoURGfZTLiJDncHVQyOIG8OV W7GKCfLWIcCW5QRmJoOBIzGEYwYZyyGDAoEONfnk4YRAJiASWqWCUnBBMgXBDfRRAaWWrtYZOoNMQ7ZZ I5KQFhIZQvGF7MLdQvJXKoNRujFCHaWAYpHGIjeo7YVLMbHJVnGaA6UZOxLRLlFPAiTVpdJNIyGKX1RB W4SWKkWRAzNC7NPtMkDVwaTTSWFoa3MQmpW4l0ACSz MZ4EK3Scq7JmSXikSWGXCYmoPX8kmfWsDCIdMb9SV2aBEgy4SJExVDHjRQA5AdnwPHDrPwLkWumhSBBo XBJ5J1HiZX0zNDO6S0O7FIGxIjrzZ1I9ApFpH9HeCBZtVOH6LKn8JWAxQoWiJY8OOb8MRfS3WFN5aJMj Ir1HSqr8ND1ZFWYQH6EGJv== ID Date Data Source [id number] 03/15/2021 10:14:33 AM EDT [facility] Name Value Range Interpretation Code Description Data Stephanie rce(s) Supporting Document(s) Care Plan [facility] QMQKKs4dPnVELjSq42/DWOanTVUfs3XwWBqgHJj5TUyoRRTzE7WhDBM0zZ1fNCD1DLuFYnRuXbRrJSD4 lbm AoDfrGDvUtTOPgTtkTZoBkURdjHidhiPRiFP6TtVM8WDMpA70pDVMfSRLvK9StMAXdCLp+Nw0FREZquE EdJJ4VDadE3Fglaek8IM1gLF5Rd11tQnxXGOQVzCjQAlDyivRtoK6zvv7NTgOc3rVEllu72DGVVbYa8G VUR6kvQMqXKNXpWbfm7avGLHSzz2/XEGkHXQH0v/s1 oGX9qXbrlsO9gke1yUj4rN6JVsLduwK+QvrVU1+/tIu0mD8Tm4EzBzPWe5TWkcBijJzLwWsjCocfsxk+ lDO0mo9fHSDcuhVdCLuYHuO1UNEp68ravqSF+TwF6jLHN33I44JNnl+HqAz4xFAnsDjHBPSeohN1M9nn gclbv+tvwli1F2HRFOhLc5uBZGHBA7/pqkiiee3Ry0 [file] ICAgICAgICAgICAgICAgICAgICAgICAgICAgICAgIC AgICAgICAgICAgICAgICAgICAgICAgICAgICAgICAgICAgICAgICAgICAgICAgICAgDQogICAgICAgIC AgICAgICAgICAgICAgICAgICAgICAgICAgICAgICAgICAgICAgICAgICAgICAgICAgICAgICAgICAgIC AgICAgICAgICAgICAgICAgICAgICAgICAgICAgICAg DQogICAgICAgICAgICAgICAgICAgICAgICAgICAgICAgICAgICAgICAgICAgICAgICAgICAgICAgICAg ICAgICAgICAgICAgICAgICAgICAgICAgICAgICAgICAgICAgICAgICAgDQogICAgICAgICAgICAgICAg ICAgICAgICAgICAgICAgICAgICAgICAgICAgICAgIC AgICAgICAgICAgICAgICAgICAgICAgICAgICAgICAgICAgICAgICAgICAgICAgICAgICAgDQogICAgIC AgICAgICAgICAgICAgICAgICAgICAgICAgICAgICAgICAgICAgICAgICAgICAgICAgICAgICAgICAgIC AgICAgICAgICAgICAgICAgICAgICAgICAgICAgICAg ICAgDQogICAgICAgICAgICAgICAgICAgICAgICAgICAgICAgICAgICAgICAgICAgICAgICAgICAgICAg ICAgICAgICAgICAgICAgICAgICAgICAgICAgICAgICAgICAgICAgICAgICAgDQogICAgICAgICAgICAg ICAgICAgICAgICAgICAgICAgICAgICAgICAgICAgIC AgICAgICAgICAgICAgICAgICAgICAgICAgICAgICAgICAgICAgICAgICAgICAgICAgICAgICAgDQogIC AgICAgICAgICAgICAgICAgICAgICAgICAgICAgICAgICAgICAgICAgICAgICAgICAgICAgICAgICAgIC AgICAgICAgICAgICAgICAgICAgICAgICAgICAgICAg ICAgICAgDQogICAgICAgICAgICAgICAgICAgICAgICAgICAgICAgICAgICAgICAgICAgICAgICAgICAg ICAgICAgICAgICAgICAgICAgICAgICAgICAgICAgICAgICAgICAgICAgICAgICAgDQogICAgICAgICAg ICAgICAgICAgICAgICAgICAgICAgICAgICAgICAgIC AgICAgICAgICAgICAgICAgICAgICAgICAgICAgICAgICAgICAgICAgICAgICAgICAgICAgICAgICAgDQ y2D9mtTQDhIHQmAY2lQXg2Mk9+TNmMYkNuILF1qbLmhP8YHO1oy3HmUDhvWJIft5TjXRn6TH6DNOYeCC itMX0HIGllgp7ZDQViJFIonBDQz3gxYvSoVOW2DBMg PkuoGT1OBYAqH9wdnnCjJWRwQINUVY4AZfGeM7JqvH78OCFYEz6+OZovbcWpCtfRAdK2THNmg8TkARl0 YH7FULUvMpwim5MdEzXwJTRHRRvsXV5ZVHE5SEX6QBTqMj3BCHIbS846noDvJV4IAj3WNjKvZS2amh0N MeGeRQGvXayZKuk1JCmlTV8TbXRbJVtFGNCkMAOqOM 7lYskvSNJujSDxJCMSm6P1LKRdCYCTHBT5MKnvLM7vPCAfRYMaBgM3OCDSTZ4NXIIxEYWuxOHeFDBiAV FWGY1IZZtzXWT7YunlcxRhpMBqTNdjQL5WVOMyiwEzRlWzPBBSJIc+Fa9AKI8sy1EoMZtmKwSsLD1key 8HAJwNVaHqW6M9hMVvQ4A3JWwbVi3UNYNuAMDwZwBo ADQWUHpbAU7NEA5ibmO6WI3FgFRwDPMdDBVdrSJwAQk8Q57kuSMaNPsaVM4KDVT+Dillon+Ph6VGUAqLZWd JNHbHhRbIFVQDyEbA7CiM9JLp0QcX0HiDA25wLamjrAgORhkDL7GSH4wZXIxMJFFZC9WkFVhdH8qpxBw QASgCCIXSaWrA14vaINlRYBhXDD2PHYyUr9WAMLhY5 YtwnTqdRftkpFhMAEfIDVSBD2KTVsxktXoeEBxlDrcZU55dYpoLZ5OHx5RGcFcZJ8fsr3ObXAzRx9LSP VbDH5CYJCdZZZzRMEbRHP4XCLlOwUwCVudWRCrTUUsVFC0ETLsVHHaSH3BCnIxOTVmIjGeYpamTVNzKK Ztet9TRTFiBFOuLyc5DMYhQBUuQQEqPQhkSVIcKHAf NMJ7AAFzQEWzJK6BMkJvXSRfEPT4DlEwSXQlUXRlzg2FXVMgOFMtBaHxYFZyFAAaOFFqKSjaDVOiOWIq XZv3CHGgUEJbWY1AWrShOQEwNRY8BZjlUMNoVBTvpr2GMUTfDXKfWge9UcSiWABiIQPeVJqnNVIeIEL0 IIRiKGUzKZOfEI9SIwXgBSZhPBIdMhuzWRHxTSFnyn 6AQTNnBNBtYQOlJNGvULSxCNWhYOkiOXWlWBB0GngnQSDeLDAxPX3GGuNlIZPyNZd7NMXxCTQcVHFpzb 3VUCSjTYXxKJV8DMYmWFKjHOEcHJpgFBQmVYM2NRU7MKGxQHFyQU6TXiJtAXYxNDd9FCZnXADhDXWlat 2KCIYhIBTsWWAqCxJhSFEqIFTqQDpoEYNvUYE6RyBp TJJpCZBnEO4YGoEjUUZuSFp1YBdtVXVkIGMlqs4BKRXpBROnLKf1ZNHbUFTbAIBhSJyrDSGhSENlHGX5 QJShJMQnYJ0URdRiEBBtZsScEKhiZEOjTFApqg6UDXOiAUOkCGYpAHUcBWHvDIWzQUgiBRSkNWOcXTk7 ZCPiGKQjDU6NMpMpYTStRkXdQHdwPSDkHZYkuy3NTL DrNIGbFsU1EBGpHUInAIWyMKv7uaCfnSPkKBe3TZ2WZ7JwymToQdiUOe0Ow402CDB2IJJwFu0OQ2vnTe 5zOAVdVIMPSc1REIj5OUF4QHZoQOebVOQ2XSi2QJJqPvQmARUjJmm9VUFkUeS+KPsjCLF3WyB8TXVoZP IfSwerN3L2QLSxP0K3OPN5MAAnSW5oHENRAo1+ZGgupVLofGrzGHHHZjNpVES5HEqxKXGMXo8O ID Date Data Source [id number] 03/15/2021 05:49:27 AM EDT [facility] Name Value Range Interpretation Code Description Data Stephanie rce(s) Supporting Document(s) Nursing Note [facility] JHYTLf9jGqEJWzHu54/NOVcsFRStt3IiDBmjVIs4FRqaNWCmM7JoEIC6kG3cSYY2LEcQUtIxAhOsPCY8 lbm [file] RII6OAC3YmPoAN5AKj1AHzW6UKB0uTUvYr4DLoH8QjMCEyEhGZ3GTHw= ID Date Data Source [id number] 03/15/2021 12:37:56 AM EDT [facility] Name Value Range Interpretation Code Description Data Stephanie rce(s) Supporting Document(s) Nursing Note [facility] GPRFFd8tGpCREsJk97/DQAiuIBKuz6CdJBddVMj7HAdiSWDbP2HmDSM1hS2fDPM3SZzOWiAaXtYwRIF8 lbm [file] ICAgICAgICAgICAgICAgICAgICAgICAgICAgICAgIC AgICAgICAgICAgICAgICAgICAgICAgICAgICAgICAgICAgICAgICAgICAgICAgICANCiAgICAgICAgIC AgICAgICAgICAgICAgICAgICAgICAgICAgICAgICAgICAgICAgICAgICAgICAgICAgICAgICAgICAgIC AgICAgICAgICAgICAgICAgICAgICAgICAgICAgICAN CiAgICAgICAgICAgICAgICAgICAgICAgICAgICAgICAgICAgICAgICAgICAgICAgICAgICAgICAgICAg ICAgICAgICAgICAgICAgICAgICAgICAgICAgICAgICAgICAgICAgICANCiAgICAgICAgICAgICAgICAg ICAgICAgICAgICAgICAgICAgICAgICAgICAgICAgIC AgICAgICAgICAgICAgICAgICAgICAgICAgICAgICAgICAgICAgICAgICAgICAgICAgICANCiAgICAgIC AgICAgICAgICAgICAgICAgICAgICAgICAgICAgICAgICAgICAgICAgICAgICAgICAgICAgICAgICAgIC AgICAgICAgICAgICAgICAgICAgICAgICAgICAgICAg ICANCiAgICAgICAgICAgICAgICAgICAgICAgICAgICAgICAgICAgICAgICAgICAgICAgICAgICAgICAg ICAgICAgICAgICAgICAgICAgICAgICAgICAgICAgICAgICAgICAgICAgICANCiAgICAgICAgICAgICAg ICAgICAgICAgICAgICAgICAgICAgICAgICAgICAgIC AgICAgICAgICAgICAgICAgICAgICAgICAgICAgICAgICAgICAgICAgICAgICAgICAgICAgICANCiAgIC AgICAgICAgICAgICAgICAgICAgICAgICAgICAgICAgICAgICAgICAgICAgICAgICAgICAgICAgICAgIC AgICAgICAgICAgICAgICAgICAgICAgICAgICAgICAg ICAgICANCiAgICAgICAgICAgICAgICAgICAgICAgICAgICAgICAgICAgICAgICAgICAgICAgICAgICAg ICAgICAgICAgICAgICAgICAgICAgICAgICAgICAgICAgICAgICAgICAgICAgICANCiAgICAgICAgICAg ICAgICAgICAgICAgICAgICAgICAgICAgICAgICAgIC AgICAgICAgICAgICAgICAgICAgICAgICAgICAgICAgICAgICAgICAgICAgICAgICAgICAgICAgICANCj w/wDMiD8swfBMvpaL7K2yjFs7UDu7FVM6cs2TcBHVkTBjthbUhVjvCIgXbCEEfFekHImf2VPhuXN8FpD TeP9RvX4IkWYwfVB8FMSJiATUqhXNnEDVoJBUrXwF4 OLIqCXdmFM4MaWTjGHxtIFVrCGAxWS9XYFOqJ511bdIbLY5DTk3YTvPuHG4wpf5KEePcHLFpGchVJlb0 OSfdBK3JwRSlvQQsZBHdRABXFwWeS6rnr6AjJjXrWFTDMDgeXB8Iz3ZhcYIvJFl+Yh5DGS8du3TqIShu UJVnOF7wdu7QGWnFLeXxU4LqnZcbCQ56gfFyffecYz 38PTMxfBLBOVKlumVYPNTvt9BrEJWZEZQ2WGwjLr3dBSAcXTCwEiRhAGJGIC9YTFRaPVAxnKPqXFGcTU XAOZ1MXSywFZK6BusbpqIloQCmLBzjDN9IKHJauaDvSdQqICKPILt+Wc6OBO3wj2UsKWiyViUpNS9ggo 3CPKqUFoDkN0V8cONzT1Y4KMfvQz6CXCMxZKHiZcXo GRRPAVsrJS0LWE6nitR2IX1LnREfEUVjNVTasRLrSSo2O93nxQAaMHvnXV1UJAC+Dillon+Wm0GTJGnXVDi WQNeEaJtWAJCElYlH2DyC7BTc2CoF1MfTN40kGhvzpUkNAnqPC2XOC6jMZQqRBRKNB7CsSRoyV0nzbLg DPLdDXSHOkCuA62fiLYlQNWjICHoECAhYj4PVASeJ2 LitkLwmEosbvYqQUFtCVFZJH8VKGomqiEctJGayEjfBR24dLjbIP6OYj0IXwWwGB5yck8CrISzJs2HFF SoFu2XXOJqRRAkVCElRIF5DJTtGzPvTQseZSCeXYYaGGT5BTDkTZGsYZ3NIiGgRTMzCvK4HOEjIBCuKE Hrxx8PKRRkWWDcBcW5AULeEVNlLELoSAvyRKFoDJKj HUA9SRGvECJhVQ7MNyStFGVtJYB7PzcsZGVfTWDvpc4DQGLmBTJgYiW6VwFeWEHwNPPcPBndXDDhKTY7 HRJdZHQlQBGsJV2DIeBdGZJeKZCwGKKwGMXaEFZaaw0UMKRrUUJfXSQyOlVeRTXkOLSaQMozGTFmFFD6 Nau8VVOvLIQyCU8ATpEaCXXhSQM4HSYyRTUyTQUuno 6WBLMbUGMtJTl2RWFkTFAlXADzACppBQBuGES7FDL4VYBsGWBcOH5SSaObINYzIGm9VrKcTTQcNCIkxy 2WHKFeGHBkQXHiVAOdKVLgGQEcCRrxYAHsLTP9YDs2ICVwPQNgQP2EFrNeLIVxMEeyAsOoDRQmDWOuyw 8CTYBlBNQvITq8OjJyPVShYGXfWKkuGVXfWTXpKSRz JQZaIBWcZT2SYkNlLESuAhHcRcLtHSGlQTHkbx8OGQVyMYTnAZKeCMMlBACbKCTuSTtjMWBdDXLuPRd2 YVInTNVpHG1SJrJcICIyNtIxVwNkUSUlGUIvak9ECLWwLJMiBhg1IlFiJGWtGHNdWMjfJQBzTXRdXGZ7 YUDnUFFdCN1NLyJjKLMcFyK0WUugRUBrHEBhuw8CsU RuwGatpp3HANeMPo7SqCfqGUP0UBbhUt8gcWQtNmHsHEZLEo3DrqHxZNCuSFEYEAjaPHKoKYR3OkF5WL a3BFEgTPo4JiM7WrWmINTbCZVvCTz3TzlvVnR6DaAzVMm6PMlhRZP1MFn8Kvb7MjSsTSKeUoE4MaW5S8 M+FY8kIPx+Nk9Xk6TzorN1bjCiVSxcSdEiLy8WSNVKP4WRXd== ID Date Data Source [id number] 03/15/2021 12:37:46 AM EDT [facility] Name Value Range Interpretation Code Description Data Stephanie rce(s) Supporting Document(s) Care Plan [facility] CKWNHw2qDuALLwOl29/HWQtpLGLar1IvPFoqAAg6ZCvnOQMkS0BnQKM6zX9uGZK7RSeOAmYsHkJmPZK2 lbm [file] ID Date Data Source [id number] 03/15/2021 12:36:31 AM EDT [facility] Name Value Range Interpretation Code Description Data Stephanie rce(s) Supporting Document(s) Nursing Note [facility] SVDMQp9lKlXFXlZz89/ZTImmGSWiu0TkJLgaBEu1KTrqYYEhW5QvOOF1jH5cHLK7WFmTZfOtQxSwVKD8 lbm [file] 54Vuz/dPKdwFM/5yGqTq7A1yUGO0kPPxk1prRA2Flv2iuzqIGmAz+cU/wYeh80/Q15QqjWpz11mw+halver machine operator dVeDU83FVEZMIYDjgf0iBtxa4IG4uzg08SHXt+tieGv8mQVnIXKww/PsTwFPSoriaVlJ+xXP/paVzBMa xSgIgdYQZcooPZlARZvQaSEJWt7kPEgLxmpglXLEgI kNIHn7N8GDSo+Tw+BJ+1Eo6xi2FCH4IXHxoWtuSA9vNEvfZW8euDmCfQUxED+/urSII/ptRsU1JuvXwh UzanTXqXoyMWAtwu9s0NCQHlm3DQO4draaYUouoaGgf45LTZkIAuoLXgh+rHgQiR3q38t8fs7wk4kDnl KeG2AMK/ucJroPRw/uffihPM03iMHZblytSyU2xFV2 e3GTsucg3KzQCKaZjfnduBoyGgeJATpIQ7nIlTzcX9gQbqWfmKtGQNYRtnIgYPkY9YAdVULZMpREeEgG gBG5gBXQ3BFaZlXL1RqYHXdneJSEiNXPAtot/ydYT2SDG+YGv85mKVm1YL1dLOcRemuGfBncgy3Dsxo1 ovJe00WcNMhw2S8Vx0Exe6uqgjn4I2O/HkV2ofTUC7 zqJCZS55u6c1RSz/TkuTYNgNrXikOxKRTwtOX5BuQ8jzXHjLfVlKO0JCyyFlCViWbJXXbZ3nnqwL9FSt qtoQ9mSs3hvWi9NVwLExHBARqJNr/oexpdr4FPIacRfZvZYnz74n7G8qhzgNunsK4Pn3VosMNa7qS9XL 8m+/hsdN13dqGktZ5k1+vpSeRMyfLrmupt1pwALSht +CI72Mu7vfZy3Y3kKZ6ESgKU1opbo8tnTVhBf5Mu5B1P9cO/GKe86JkC9znNOf6DHfAL/V8Gpo9AwuX1 J6GIKkn+47v9ftonaMv2+w5mhMYLELuubvgxJkAVNZiLQMqkdXfAa0+YEUhrQskI4f/d3JMkAxEG3n10 5Ssn7ij74gxJv91Bj3CrIY97vW6W1i15P1+xuVU1xq [file] Bpsgva2IhZAEgd5LTbXYj7kF04EeR+Q80LnmaD7Y6vrk6I+z0MctAn2TZb74WBQBJeYz13hq50N9+manager gallery [file] HgXCF0Hod7Kp9uWQHRQc3+AZrbxCKbdJozWZANWuV6QEW2CDszWJJKKz2I ID Date Data Source [id number] 03/14/2021 04:35:03 PM EDT [facility] Name Value Range Interpretation Code Description Data Stephanie rce(s) Supporting Document(s) Nursing Note [facility] ARHRDs9pVhNZHmSj94/TUFjhIBKyu2SaPVptFXl8OYgyBRQwQ7CxIST4uL4wHMP9IWhHXaNwMuKeKICu lbm [file] f0MP7XFFL4TIXxWj5EJWLbZJ0BLICaBBJmVTZLPsQc IIWbUiXpPJNqZYDQNBesFUGyX6GoLZZ3GTHeIa2+BTqxNJ4QT6RnVCY3HRv0TX3+ZCfbPM7ZzHIJK2Nm oFIjUTbkW0XFMM3MAKY4UE9QoFSiUC9IjADFP2YshHAvMv8pSCCmn7NyCy1mV3IYOEEPZOZpLEbwSWtf GHYjUHb2V1R3IRShQ2STN012pRXfxPv7Hc9oJ1LVWW lNOjHtKDzcFZacREAuGJo8K2B8YPZgD0XCL4KfIiIigsTzU8K+NmFyLVXGDZ6LASCLINz8K3Q2lOSlV9 P6zIpHfQY2VK7MWT5EfXGolUSsl17+PoMMVyDsY5YWL0WYQI6VWTj9L6V4mFAuJ7X5dRzXeBX7AS7BII 0FiEbltKZaQc5vGSapYOB+Ne8EHh9NOdNzIE2dek5U QkFnRVRwSzzACjk7R9dzfrg5xDZfSqI9S7I8PbX0wZWlHC9KC1O0dEDrIQK7SIOowCQ+Xs0Jh3GaTLYy DPc1Y3gwQSUlKKZnGgMxsQ19N++9lhzqlYX7I9w1BMZBpXOllHgAhwEvM3mAHLZ3t7K7HKw/Ge8WCQR9 zSq9bAZmUTOoXWt3zR9jpXx2HaVdWY25FPLbZGzihI 5rJbo9I2Ysn1YnHw8rVx3keWTwBe2MDxUnEWQ9tdQiOqNTEfR7yBmangurEYX0G2k0hUQ4Vv99t7phae Wgs4BuMeM7ALohOHYaXmBhghEtVOB3ozVebZ9qocTkHm4FFEIbKPhzwuNvArSQKt7DMnWbUD65BinioK 1ldGE+DQogICAgICAgICAgICAgICAgICAgICAgICAg ICAgICAgICAgICAgICAgICAgICAgICAgICAgICAgICAgICAgICAgICAgICAgICAgICAgICAgICAgICAg ICAgICAgICAgICAgICAgDQogICAgICAgICAgICAgICAgICAgICAgICAgICAgICAgICAgICAgICAgICAg ICAgICAgICAgICAgICAgICAgICAgICAgICAgICAgIC AgICAgICAgICAgICAgICAgICAgICAgICAgDQogICAgICAgICAgICAgICAgICAgICAgICAgICAgICAgIC AgICAgICAgICAgICAgICAgICAgICAgICAgICAgICAgICAgICAgICAgICAgICAgICAgICAgICAgICAgIC AgICAgICAgDQogICAgICAgICAgICAgICAgICAgICAg ICAgICAgICAgICAgICAgICAgICAgICAgICAgICAgICAgICAgICAgICAgICAgICAgICAgICAgICAgICAg ICAgICAgICAgICAgICAgICAgDQogICAgICAgICAgICAgICAgICAgICAgICAgICAgICAgICAgICAgICAg ICAgICAgICAgICAgICAgICAgICAgICAgICAgICAgIC AgICAgICAgICAgICAgICAgICAgICAgICAgICAgDQogICAgICAgICAgICAgICAgICAgICAgICAgICAgIC AgICAgICAgICAgICAgICAgICAgICAgICAgICAgICAgICAgICAgICAgICAgICAgICAgICAgICAgICAgIC AgICAgICAgICAgDQogICAgICAgICAgICAgICAgICAg ICAgICAgICAgICAgICAgICAgICAgICAgICAgICAgICAgICAgICAgICAgICAgICAgICAgICAgICAgICAg ICAgICAgICAgICAgICAgICAgICAgDQogICAgICAgICAgICAgICAgICAgICAgICAgICAgICAgICAgICAg ICAgICAgICAgICAgICAgICAgICAgICAgICAgICAgIC AgICAgICAgICAgICAgICAgICAgICAgICAgICAgICAgDQogICAgICAgICAgICAgICAgICAgICAgICAgIC AgICAgICAgICAgICAgICAgICAgICAgICAgICAgICAgICAgICAgICAgICAgICAgICAgICAgICAgICAgIC AgICAgICAgICAgICAgDQogICAgICAgICAgICAgICAg ICAgICAgICAgICAgICAgICAgICAgICAgICAgICAgICAgICAgICAgICAgICAgICAgICAgICAgICAgICAg XTKzVILjKBXgPNVrMAWlLRMaYHJiCSPePPu3M5vuDGMiDACoCS6aCVk0Hr8+QHiOZsGkTIR8ptVldY4Y EW7rp0JpTGdpZYUpr7NoJFt4EN4MICKiUQulFK8MBQ ydvh0TFVKlYOGwpBTVs9gxMuWoKZM8OLZyNkpwYP4JVSXbY2xtwnKgLXEvQFEEEL1SPsXvK5UlcH11LF ENCj4+GZcfcgIqOngXRfPhRNXij7LlLUn7NW5IWBNyBkled1JfUvDfXBHJALeaXF6QBFT8PUIqFLWzSm 7SHPPeQ742jjNhFX3QCg4KSrAuWT5vux3BRcBbVIKi NidHJyu7UWdsPG6BnQSlFBhJtGMifW6bAE7imLSpBrqoCBblbiKoNapzbWOah9ezg6afAVZDJDQ3KDkv Ip5aXCVkHGG6CmA7UCSHKF9HDTZmFLTkrNNmGCPuSWVQUF6XIVydFDN2EouhppRpzXGqIJgzKQ7RQCMl bnQgMjIgMCBSDQo+Ey7FZL5ht9NuIQpxQVWzZY0kxl 2YDBqXKpVbL9P4fOSfT1U5SYwwRh2ZHTReNQPmNbVkXAHYVRqfDP7NWA6eedJ2SU7QgXIwHBUjDCMwnI HcULc8T63pwTTkZYtjIC5HLGK+Dillon+Mn8WZZLqCEBvTCEuGxVwMKYZMdDwK7XtP6VXr2VhE7InYM58sJ albxZeECwfAA2KIO9vSFPgGNHQSM7FnUEopF7ajbEm EsZgSUUYCpLxF37tfYKbIXDbECTzYGSwGv5KEYRzL0EaihEoxMkrvnAkVQYaIWELRT4ZEUoitzPczJUe wEofUD10yKhnRG0VZw4DCyGwBI1mlu3HaTMqIy1QPJTvVR0TFTIyTOKgRHXbDIA0WGTeCwVlWIuuEGYw RMAhQDT8ESKgWZVqPR3CEdAzMOSnUXj0SUslQDGnZM Urpo9XQZTiINOyORxsYvSyUZZjLMXuESsnHVKkVOZrLGZ7AZArIQNtVO5QGoKwBQKhAQW6YuArPRByXR Awsa0FRUUzCMYfCCzrJELhBVOeKUEbOEooQRGlVBFnIlfnANWwDCTiCT2ZItKlOZSeLBZ9DPLzTKYgZS Tvpq4CSBLvYSZvPoY2PLXlCROgWRZpCCtmTNMlVYY0 QFU2PNJlIDYlSG9GRbAhOFNsIRSfFfDuDNDdEGSnor6HINLdWYUoXBTwDtOuVTNhHHClCLyqTQIsPDI0 BhA1XUEgBUTpTC1IRtSuUBHkWGtrIOEzTIWgZHWfpr3KCIHsQFGcZxV1HIWbJFSqXGDrNDctUQBmWWW1 JUKcEZBeUMPvYS9EVaKcQVHnHGt9GnFvSIMaGHIyho 0HDYJwCGCkJEKcTRPjTEQjRZNfLJcoLAXkHWI6BRGlFGYyYFSqID5AFhMcFMSaQBf3KsGdKTUyLTSddo 6CMQGgZAWbEWP4DfQdBSHnJSXtWKiuTGCuSLDdSEWcVBLbWGYlNK3DMyTxDSKsMfY4SZGiTBYwBBZnhw 0XAZMlELKlRMY4GEJdZEKxDCLhEUo9cgVrxYOmASj5 QU1SH2KxpeChSzOTWw7Ne463NNE1QKDbGx7FW4pxAk8mLBJkGDELSa9HPEs7JeH0BvO7YCC2YqsiEvy9 YThiZTRiMDMzYTNjYjUwYmI+SJbnQfVbYLf3MnHpEOOvQdvuURQoJAMvMeRcZ3HfTIFnOl7nSKYQFc7+ MWxjsXYlhYryTGADJtNyLzy6UXymWMGFDb0I ID Date Data Source [id number] 03/14/2021 11:53:06 AM EDT [facility] Name Value Range Interpretation Code Description Data Stephanie rce(s) Supporting Document(s) Nursing Note [facility] UKOHAm3pMwHBByBl33/EXDajVOKwf1BoGBjzEDj4VUlgOJJvU7AxWAU7hS0mUEB2PBgCXaPzCfUeJGRs lbm [file] O6JIFzZtU7ItXhZjKfIoLfPiKcUE2KBy4YOfA8GEG1eOBhLb9RGpLeEEtGJnEwNX6KCAv= ID Date Data Source [id number] 03/14/2021 11:44:44 AM EDT [facility] Name Value Range Interpretation Code Description Data Stephanie rce(s) Supporting Document(s) Care Plan [facility] UUFLJz0gBmPVSzHi36/ZZHmrRSTna7DpPIjfSQl3KHopCRVvR4XgKBJ8hS0dJZK9TQdFViCpGdOxGAFy lbm MkEzrBBxOcCNYtYofUMwXfRDrjXfsfhHHgTM3FjSG3AAKpH44mSPHmJMZcG7WoNQy5DE6+YUujJTE9fy SgzY7QNLNnWDll0cSVyl+w/8IWRxwHKAwyXkzI9gLCdxjDz7JLlvM3LE5vo8PL/jnNj1Al51dB5cTVvK SBEpvqPnpuwqHJ2n8noJDdSNJ/1rW3LwdIsNvRKwLf FmLVKxFCCwQzLCwWuFfJ/8gOotGXDZyaQBnjLTuOVTaSiLJHQHKS4SpEQvPmAuf4rCHcZOaja+4xAxcO kWqqDZz9dXmwuTfeCf2n2tI3cO8HJ4wkxnRcKLncgDIgT7LWLJBHGck7pT1YhbKPiUQvFZirMMUkNB9l 2gUWMzoar6xpB3dI2sYiACntxst1iJeAB02frXuuOy gtUQW3vbXxKzV5pagq/RJEdnfbbYukfA0iwJ2MItToxKJ+swDJigsX2h958V2LRWH9ufws62cAX8Ysd2 wz6XrAwzsRJRcwaAxoWSz9i0pVsD8NRJagm24b++Qi4TcDo+mPcbrXEGbmDDeaV/rudy++EOjSI7WdWY1 [file] ICAgICAgICAgICAgICAgICAgICAgICAgICAgICAgIC AgICAgICAgICAgICAgICAgICAgICAgICAgICAgICAgICAgICAgICAgICAgICAgICAgICAgICAgICAgDQ ogICAgICAgICAgICAgICAgICAgICAgICAgICAgICAgICAgICAgICAgICAgICAgICAgICAgICAgICAgIC AgICAgICAgICAgICAgICAgICAgICAgICAgICAgICAg ICAgICAgICAgDQogICAgICAgICAgICAgICAgICAgICAgICAgICAgICAgICAgICAgICAgICAgICAgICAg ICAgICAgICAgICAgICAgICAgICAgICAgICAgICAgICAgICAgICAgICAgICAgICAgICAgDQogICAgICAg ICAgICAgICAgICAgICAgICAgICAgICAgICAgICAgIC AgICAgICAgICAgICAgICAgICAgICAgICAgICAgICAgICAgICAgICAgICAgICAgICAgICAgICAgICAgIC AgDQogICAgICAgICAgICAgICAgICAgICAgICAgICAgICAgICAgICAgICAgICAgICAgICAgICAgICAgIC AgICAgICAgICAgICAgICAgICAgICAgICAgICAgICAg ICAgICAgICAgICAgDQogICAgICAgICAgICAgICAgICAgICAgICAgICAgICAgICAgICAgICAgICAgICAg ICAgICAgICAgICAgICAgICAgICAgICAgICAgICAgICAgICAgICAgICAgICAgICAgICAgICAgDQogICAg ICAgICAgICAgICAgICAgICAgICAgICAgICAgICAgIC AgICAgICAgICAgICAgICAgICAgICAgICAgICAgICAgICAgICAgICAgICAgICAgICAgICAgICAgICAgIC AgICAgDQogICAgICAgICAgICAgICAgICAgICAgICAgICAgICAgICAgICAgICAgICAgICAgICAgICAgIC AgICAgICAgICAgICAgICAgICAgICAgICAgICAgICAg ICAgICAgICAgICAgICAgDQogICAgICAgICAgICAgICAgICAgICAgICAgICAgICAgICAgICAgICAgICAg ICAgICAgICAgICAgICAgICAgICAgICAgICAgICAgICAgICAgICAgICAgICAgICAgICAgICAgICAgDQog ICAgICAgICAgICAgICAgICAgICAgICAgICAgICAgIC AgICAgICAgICAgICAgICAgICAgICAgICAgICAgICAgICAgICAgICAgICAgICAgICAgICAgICAgICAgIC JdZSVhYCDrWSt2X9rvCKZmFFKmOS0yCKd3Or5+YTgVPmEfZNH9ehBijS5CJP4la4HiYOlyWKEvq0DvZT n1IG8AZZKvEIbjZV5ABPdiyq5OHQFcJJDwhXKOa1fy IvJzHKV6YGNfMmabOL2RXWUuU2atthUiOMLpIETJOA8WRxSnS5PjxA05OUAGKu5+DQplbmRvYmoNCjI1 HDFeg6OuOSr6MH7ZGPMgTmanv6WlXrUrKNGCGVwqZE3UEFD8KQD4NPIkYe5UCCNwA830urFcLL3MNt4C MoYjQA9xjx8LGfUqDYMkOrdQXcy8ZBrfUB1VrYSqDS aHUPVdLGVxRR6eZdlgOHcppnYwBpgtlVVxc4wmg1kiLZUEIUD8VRjxLp8pSGJyJKRkKxB4MPKDJO9WPG YjMTNrwZDfEASmQROXZD7YOWyyBOC7DbdvfsVnkREyBTpyMC1SGRRjsqVpFoZeMBZXAYi+Jb2CIG5ju8 McVFboZgFoUQ3vbx1RHDkOLqPuK9D1qXDcE7Z3IQgw Xp1HNUEgZOOmNcVkQAOLWBhsJZ2KRV3yksP5WM5TgVExRDBfJXCqeGLoHGm7R56zvFWiDVohOZ4PHVZ+ Dillon+Ag2LVPEeTKWgIBWoGmAdXNETTmRuQ5SwL6OMw7KcG1PySZ93yZhwslNrLDxfEV4VAT3fXIQpILWM WK4IuBFiwB6cszZvUMHiUVHCKsDyC40haZQmMFFxTG C7JAQfCt0TDVBqS6GqbhExqJbvwwQsGEObNCUTSD9UVOuankRydTXndSmiAE52xNocHG5NIn4OLiYrXK 4frt1AiCEdXf4YOHVsWL1XRCOeBFXvECNyFKB8YUTySnZmZPydIOTiDREiTEN3LFKgROTqWV0OYoJuYN MaWkJlKbHjKJMoYYWnwo9QODUbFGNwZLr4FzYxBTLd SIJpDIakUQVdNGJwSXX9TFCfLYJsPW5DWfUfDTVjWLCkGaYeTFPiFQOrrb8KBVJaDDHaLVIzXcWeKJYb RZSdGTrcZXNxIKDiZjz2TRFcUDNmOA2TPaLgFMTgFKA8UPMuEDGlUZCpga5UFXBxPKRiGta2RJFaFIHm IJXuCQbwUTZyFXWhYgR2LFRtWAMmZY6XBlSdXUDrKJ R4JaAoCNArVPAuip4CJSZdQSCuTDCuAUPwFFIoCCVcODnwLTJiAYI1LSQ1HZWsXLOqHB0JYsZgIRThIA C4ODCqVOTgTFKgqo9MVPJtAOVgRtr7AeMgTPBdQEBoPBfqWBQoPEP5YlAsPMTjXLLnVL4PHfSfENRoIY ooLlbyHRMfWVSobb4MQOSrTGMaZVYjBIXvKBGpFBNw LXlwBYFrTEV2ONC3HDSlDEPsUR5AAfRmDFOfLQg4EKOtHSDvLSOmhv7DZNXjCXUmHJL8ItBdKXEkNXVr FYifPUBoXBR0JNDsWLDoZUPuJD0NOaRgDCHcBfFlYSNwKWWeVYBedk7QWJGzAYSzEBZlCsFfITAgJIIr IQcxDHLaWDXfFVk3LNBnQHNeWR7TDmBqNWFfHnC7FG ShVEAnAPZmem4BDEXhEQVfXrS0ZPJcRXLkOKGaGUk3jxHrvKVySAn4UG7TZ7UedpUyUibKVv9Zx866HI A0NLNdCo7CI4muEd4pZHXeSYOQHk8ORFi8XXP8UTOuDGD1VgS2BrBhBDfiKhB5ZjisTtWpSMWmHeW+ID sxMVu6GEC3DTp3JfE4UTDnZYC4ZpxkECCkLYNlQROn IR8nAXETAs1+DUxhdLFdxXiiAKFARnBcGyG9RPqbXVRTXs7R ID Date Data Source [id number] 03/14/2021 11:35:44 AM EDT [facility] Name Value Range Interpretation Code Description Data Stephanie rce(s) Supporting Document(s) Nursing Note [facility] GLOKZk8pFbWZPcEn48/ZZOqhXJHnm5OeEIakUHv5NSqmARMtS8IpLAM9wQ3aBKN6COuUMrLrPkMaTHYh lbm [file] BQgnNl2FJSVDI6OLZo== ID Date Data Source [id number] 03/14/2021 11:12:00 AM EDT [facility] Exam Number: [id number] Reported By: Maria De Jesus BARAJAS M.D. Signed By: Valeri BARAJAS M.D. Name Value Range Interpretation Code Description Data Stephanie rce(s) Supporting Document(s) ID Date Data Source [id number] 03/14/2021 10:21:29 AM EDT [facility] Name Value Range Interpretation Code Description Data Stephanie rce(s) Supporting Document(s) H&P [facility] KQLFPu2hHlTBTiCw37/KDGybIBVew1XaRUsuCIe0VXkkOFRpO2YcLDB0zT3yFTD8HZvDPmRpYgYwJWMa lbm [file] wDUfEh7WKLP3JuYLHdIxJD7BPWe= ID Date Data Source [id number] 03/14/2021 05:34:50 AM EDT [facility] Name Value Range Interpretation Code Description Data Stephanie rce(s) Supporting Document(s) Nursing Note [facility] DZYMSt5jOjBOLtSh70/LYLfkLHBzz7DhOMduDDz5QUrvVEXoJ9ReIKP7cR0sSJE3YEkBDfQePqLiINHq lbm [file] o= ID Date Data Source [id number] 03/14/2021 01:22:47 AM EDT [facility] Name Value Range Interpretation Code Description Data Stephanie rce(s) Supporting Document(s) Nursing Note [facility] DYHTTl5aWxIGCdCs03/QTHdcGKPzg5SlMYugHNh3BDflFDZiC3RuFXY0fL0dDCR3KBaJDcZsBgUqVBFd lbm [file] Dk6VBuV7LJF0mBZiEy4QYbDhDjEIGeTdLT1EUZx= ID Date Data Source [id number] 03/13/2021 10:37:10 PM EDT [facility] Name Value Range Interpretation Code Description Data Stephanie rce(s) Supporting Document(s) Nursing Note [facility] EHKATx9zUqTWHpCh22/LGCqfYWEeh3DlRIivBJc1XMvtYQIaE0KeCVZ9aA5bMRG2BQgKKkCkSjHbZDCt lbm [file] La0KJoG9RUS2fHYaKg2BAcWuVWEVTfItWH4WXWn= ID Date Data Source [id number] 03/13/2021 07:24:52 PM EDT [facility] Name Value Range Interpretation Code Description Data Stephanie rce(s) Supporting Document(s) Care Plan [facility] TMBGPa0wWkXRGpHe75/UMKfgPDXuh7NjWDieHRp1UEsrIQOdC4JwEAY7xB2eZCH7YPrIFkPkPaMwHVAy lbm [file] 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//+PZFKhbc9SMwdGsbmLJ3lE8I8m6fbQrnZzp+w5lGaZkUBVpnaBo1GGImYSge40c0HEti [file] DQo= ID Date Data Source [id number] 03/13/2021 06:53:54 PM EDT [facility] Name Value Range Interpretation Code Description Data Stephanie rce(s) Supporting Document(s) Nursing Note [facility] HDYMUv9zOzTIKkYk02/HMZybEUJch6BaXOxsRQp1RWubQSJvJ7YoHBC1bZ8bKPU3MLtGOuJfEaYtZKUa lbm [file] AgICAgICAgICAgICAgICAgICAgICAgICAgICAgICAg ICAgICAgICAgICAgICAgICAgICAgICAgICAgICAgICAgICAgICAgICAgICAgICAgICAgICAgICAgICAg ICAgICAgICANCiAgICAgICAgICAgICAgICAgICAgICAgICAgICAgICAgICAgICAgICAgICAgICAgICAg ICAgICAgICAgICAgICAgICAgICAgICAgICAgICAgIC AgICAgICAgICAgICAgICAgICANCiAgICAgICAgICAgICAgICAgICAgICAgICAgICAgICAgICAgICAgIC AgICAgICAgICAgICAgICAgICAgICAgICAgICAgICAgICAgICAgICAgICAgICAgICAgICAgICAgICAgIC ANCiAgICAgICAgICAgICAgICAgICAgICAgICAgICAg ICAgICAgICAgICAgICAgICAgICAgICAgICAgICAgICAgICAgICAgICAgICAgICAgICAgICAgICAgICAg ICAgICAgICAgICANCiAgICAgICAgICAgICAgICAgICAgICAgICAgICAgICAgICAgICAgICAgICAgICAg ICAgICAgICAgICAgICAgICAgICAgICAgICAgICAgIC AgICAgICAgICAgICAgICAgICAgICANCiAgICAgICAgICAgICAgICAgICAgICAgICAgICAgICAgICAgIC AgICAgICAgICAgICAgICAgICAgICAgICAgICAgICAgICAgICAgICAgICAgICAgICAgICAgICAgICAgIC AgICANCiAgICAgICAgICAgICAgICAgICAgICAgICAg ICAgICAgICAgICAgICAgICAgICAgICAgICAgICAgICAgICAgICAgICAgICAgICAgICAgICAgICAgICAg ICAgICAgICAgICAgICANCiAgICAgICAgICAgICAgICAgICAgICAgICAgICAgICAgICAgICAgICAgICAg ICAgICAgICAgICAgICAgICAgICAgICAgICAgICAgIC AgICAgICAgICAgICAgICAgICAgICAgICANCiAgICAgICAgICAgICAgICAgICAgICAgICAgICAgICAgIC AgICAgICAgICAgICAgICAgICAgICAgICAgICAgICAgICAgICAgICAgICAgICAgICAgICAgICAgICAgIC AgICAgICANCiAgICAgICAgICAgICAgICAgICAgICAg ICAgICAgICAgICAgICAgICAgICAgICAgICAgICAgICAgICAgICAgICAgICAgICAgICAgICAgICAgICAg ICAgICAgICAgICAgICAgICANCjw/oRKpG8ptaGVossF9L2xsGp8SUl5OYD4zj8WyDUDrTFeqazZsDlbO KxTcERBoVziKGai7XVhpMV1TsGPeI5WsH2YgAHiwCF 7OZJTlQSEuwKRnDRQgXBWdOfB3HAJgJDuvMQ7KqWPdSBjwBPMlSQPsSD1SOWFkU102xcYbME8NQz7ZPc CaHS2aic6AVsCiQYQkOsyVRza5QLmwDY3TyYWapIKcIiGuYVAAWhXhY9xgc9FqWxLnJFEZSWgiYN7Qn3 VudCAxDQo+Ko3CGI2xu6YrZYspGuSdFV2dgc7EFMeP OzHlF5YemSeqZD77oeDbjwkkTf00FAGxqQJLe6PqZbEIZ5U9CJ5qLSGGGGR5XYbgHt0qHVDpWZK0EhC0 BFJDDG4ULDAiQSMliFOwJHRdVAODQQ0VLRwfJRU1UvtgozAafQSeHBaiGY1LCXUzywGjDyMpPFZWFTp+ Qn3YCN9ke6TwKZzgSSFzJS1rrm4LLNxRKyLhA2Z3sS RnS5L5YSenBf2VJBYqQNYbRlZlMIUSZOhnHF0WPI1hjyS3EY7UfHOqRJBiHPUziCCvSUc3I52liZKpXQ fvFZ2KEDS+Dillon+He7IJATuXHPuWNFzFjPaPWGSPiLjV8LoL1XIo0KpE5RsBM73xZaznlWyQDlwDZ9XTF 3zDISxPGVGSY9UvPAkjX2fgdLcTwCdBOVOSnDmW18u yLScQDDhKJIsJHZtTn2TNHIfN7KhwnYdkXnxkyWcBTVzFUQCWV7YMDjsojGmqFCtxCbqSG19pHstLF5D Gj6CHwCkSK0ajc4ThIKyFp3GOXEoMW3NCUXxVQTiGUDfGJN0QSFgElOuNDznJNYvGGQxXTI2IOJnFWRx WL9CWxNhAVCuDEt4VEmrBFLkRHVios6TYXFnLRRiTX SbBTAbMJYeSGRwJSqdAZIoZYAwWLO4GDXpIJFrUM0FLjRrDDTbUBSrWqjfGARdFGWhme0LEWTiKSJbXa QaBaZsCMZlNFImOTvxTXZhNFRyZavnTJYcREMzCE1EOnAuIZMaCMT5AHLzLQGaIFHfmy2PVCCsQYKoMe X5FaLoTVYiSPZqKMbsLRFoRAZ1DdQ1JCMiLVIeQL5O ZxSwPTEqRJZ7CkEkQQHgPSEnpd5XRQInBRObCLCnCAYnTCGzRPSnHQwqVAZmBHR5FeH0OMVbXGMrQB5Z SjKiWJYtYDa8QSNcIKJuWCFdey0FNIAhCPNoPtc4OLUoNDWaPSTwJVoxULJdGDU9VMJ8LLFgQBWbQC4O RzVfECAtCKdvXzXbWXYcSLSyol8JQEZbBDBqQVMpDe EjGOSyDMSwSGcaKTKnCHM3WXSwMFTdVOYoMU2REoMkYSAtLZd4KmQmKTBkSSSriv8NDWMiIVWiAYy9ZD VzPKBsCUXkDHkeCAGyJCEsPED8XEPlLWCzHQ9QPaKgJALvKvA6HQPqOBXuRMFalt8LSYMqTDYnNEI7CL OgIZSeZMZaHEv0mnGlpLOjFOl0LD7AU7ClyxNxMzIB Lg5My484XIS5KUCdKr1GT3jgKw1zSNGfNFTBAx9VKZr2McprKUNlC8B8NaZsHKOdMSZ1CvXsJaJ9FMas NTNlODk+OBicGGQ3QjWaJBjxZ5L9YiE1JGU7TMHsAEIaD5O9A3N2PJ7sXNNBEe3+DQpzdGFydHhyZWYN SkQwRUx7VPgzMXLGCy8K ID Date Data Source [id number] 03/13/2021 05:56:16 PM EDT [facility] Name Value Range Interpretation Code Description Data Stephanie rce(s) Supporting Document(s) Nursing Note [facility] ILYJJa3vOoPUHyUa22/DIOnrVZBne4VfDGgzTWx2MQemRHZkO1IrQLW5fO8xQHX9XZeMDnVlWcGkINIz lbm [file] 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/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/65VkQY3ryqb3huDBMxYLX1SBeUha2u1d [file] SsGAxcYMD3W4KrHnH0RvUfIDXuUkH+HD0pUPw+Wx1Qb2RpzxJ2grFcDGdyYNX1Tx7QCXSQF8NAYk== ID Date Data Source [id number] 03/13/2021 05:15:24 PM EDT [facility] Name Value Range Interpretation Code Description Data Stephanie rce(s) Supporting Document(s) Nursing Note [facility] BJUMEj7hKtHONpHl01/LIQhbVYRyp8RbMBriKWz7GXnfATAqU6MmQPN6pI3wHMO8QOkDCdGqLwBtWIHi lbm [file] ETA1OVL5VaOsNB3JFj6PRfA2HJP2nJSyBo5MSlZmRpyOFtOtQE9EBGa= ID Date Data Source [id number] 03/13/2021 05:01:36 PM EDT [facility] Name Value Range Interpretation Code Description Data Stephanie rce(s) Supporting Document(s) Nursing Note [facility] FDZBQh8vUdQWJuOd56/LZKviPRQmu6XdPPurFHy1NJewJFOsY0YqDZS1tQ5yAGW9PIiLHbLzCsQhZCEn lbm [file] BxGH5OYGl= ID Date Data Source [id number] 03/13/2021 02:53:46 PM EDT [facility] Name Value Range Interpretation Code Description Data Stephanie rce(s) Supporting Document(s) Nursing Note [facility] CRNSKh2xKzFDUxAe32/SOOxlATOjf6ZgOLvkCDj5RLcmBFRtO7VhNKL5kU2eRVH1TFyIUdAtNePbCSXr lbm WsGmaVOwBtJOUmMidPOvKfMXgjGhhusCAtRE7EmYY3IKNmG11mDPAvBDIcL8RlJNY7IQZ+Yj7HFBWgxN PeKW7QYyeA8X8Rmie9Bd1qsj4Hmg+iYEbSTQht7oicQ5TnjwWTmvb8zS1AEQM5Pnr5+Smwi29Crbwjfn V/ngYxopRNfKAQYNCNfqPRMzCm+e+nQZlzYMtU8o/1 o4Lheng274iciU1ANo+H7f4Ug+DXE3FX9DdF/3wVuf31ffENSvSsYBHincnZcJ9FNS9Rxfj4OojATGqt O77vxldr24mTG5CwM9wjz8BnvWVQhqk0TOGSwD6RQYjf9txHs7jawOh3fwWdLy9TH9lP91ehnfb8x3Qb IEkZUY6dZ2fupafiM3xihm2RTlOVSQ3ptWl67xZbJT GsPlZci1taGBjIkj+ExrYUTipBP5kGzKcO+yodSPUZZQJlnLST4sRSOXVBhdpUmUBiJQKXz0p2cyp5Pu B31ZoblB7lHlRoaf68cS7/9wFikCScrOyShrPau4AwfQRCD/HFaO6itkR9b44INXX4HbcM5buihPQaFC xAYsJch3lfvm3qNV1Pi+e0wzH9uJp7Sxyi5ljfa2Mq F9FUpcjXZE3j6Wc6eMb2sVdOcnfPiuM5gVwlk7JpC/P8ejX/+XsUndp//Nec/Dgc/Gzl83A9rXpEx2xS ZrcMuAoNmDEQUnoIk2TrmS2rO9wXbKe/aL5gl5rmo8uCzt0Jmkffx8F8yBBfT3RaVKy8DFIF+Ofqg6Fh qRR2fsEQZswGlOLvYXC6U6Zd1R8QqjMzu97WU8+hardy [file] ICAgICAgICAgICAgICAgICAgICAgICAgICAgICAgICAgICAgICAgICAgICAgICAgICAgICAgICAgICAg ICAgICAgICAgICAgICAgICAgICANCiAgICAgICAgIC AgICAgICAgICAgICAgICAgICAgICAgICAgICAgICAgICAgICAgICAgICAgICAgICAgICAgICAgICAgIC AgICAgICAgICAgICAgICAgICAgICAgICAgICAgICANCiAgICAgICAgICAgICAgICAgICAgICAgICAgIC AgICAgICAgICAgICAgICAgICAgICAgICAgICAgICAg ICAgICAgICAgICAgICAgICAgICAgICAgICAgICAgICAgICAgICAgICANCiAgICAgICAgICAgICAgICAg ICAgICAgICAgICAgICAgICAgICAgICAgICAgICAgICAgICAgICAgICAgICAgICAgICAgICAgICAgICAg ICAgICAgICAgICAgICAgICAgICAgICANCiAgICAgIC AgICAgICAgICAgICAgICAgICAgICAgICAgICAgICAgICAgICAgICAgICAgICAgICAgICAgICAgICAgIC AgICAgICAgICAgICAgICAgICAgICAgICAgICAgICAgICANCiAgICAgICAgICAgICAgICAgICAgICAgIC AgICAgICAgICAgICAgICAgICAgICAgICAgICAgICAg ICAgICAgICAgICAgICAgICAgICAgICAgICAgICAgICAgICAgICAgICAgICANCiAgICAgICAgICAgICAg ICAgICAgICAgICAgICAgICAgICAgICAgICAgICAgICAgICAgICAgICAgICAgICAgICAgICAgICAgICAg ICAgICAgICAgICAgICAgICAgICAgICAgICANCiAgIC AgICAgICAgICAgICAgICAgICAgICAgICAgICAgICAgICAgICAgICAgICAgICAgICAgICAgICAgICAgIC AgICAgICAgICAgICAgICAgICAgICAgICAgICAgICAgICAgICANCiAgICAgICAgICAgICAgICAgICAgIC AgICAgICAgICAgICAgICAgICAgICAgICAgICAgICAg ICAgICAgICAgICAgICAgICAgICAgICAgICAgICAgICAgICAgICAgICAgICAgICANCiAgICAgICAgICAg ICAgICAgICAgICAgICAgICAgICAgICAgICAgICAgICAgICAgICAgICAgICAgICAgICAgICAgICAgICAg ICAgICAgICAgICAgICAgICAgICAgICAgICAgICANCj w/zDVbV9csaDOymaL4U5fcZw4CYg6XJS0ab7IfZOHrZDorqpTlBtfCOnSjSEQjDfwQHam3CGpfBU4HfO VwC9LoO6JaZRsjOE3XEZEpUXBlbMTgJOUhOQKxTfT8YMNnFXrfTL9PaCKsDNwlIROmWXVpSN9UFVXoE6 24ygHsMN2JBn1ZFyRkSX3vze3QVuOoDPCgWylEVli9 NGwxFH9XmLBjpSRfBVYnUPBQReVfA2crh3WaXlPqGOLSELstDQ4Ix6NzeMUmGSc+Qi8HBI8zb1KuISgj GFWuUH1vtw6CNKaDNnPkN6ZyvHmoCD06uqRrujkvVk45EFHsgRFBk3RuLbCBD8B8LO0bISRYVYJ7DTsi Hx5lOSGpSDAeRgI4BLNBHG4SXWJqZWKznTKmRUAqOF OKJU0EXEtqUVB4XmwdlpCgkVGtLUyuEJ4JGRQvmfVgDqVjXYMVZCi+Rx7HJQ7ne9TbUMtiOuCdLD8skw 5LUEmAFfVtX8W1iEKiZ5O9JJfiIw2HIQDlJDZqIjKvQBBBTVovJZ4CSI1wlvC2NB7BkGDpCCLsSBPotK KtMFl1J00bjEPuGCijBA5ZWOI+Dillon+Pn1PWKBcSXHh HDRlLgPgGUOKOhJjZ4JnM9BOz3JtN0TuJW79gTflwqPhLSluLF2CEN9wZGBtJCGTNQ0JvUMqmR1jdaVf OJKrUQQYAsCpX39zzIKxDKMxAWQrJIYjQl2NSIWvQ7KyedXssMrvimUoULBuYSQUBG1VKJpshqZosYQu rKoyKC18nTrsWJ0ZPg7XIsLqME5aod9LyALdKn7BJC ZiWi3QPWBbNLWwUMViPIA8WIRdPhEnJNmuSJLnCGAcFOF4COUhFWYoLI2ZFtBkASNcEkEbIGVbFNWkOT Xsxf6ORBQnJHBxFxfkNHJcKPQzSQBxOKrcUHXxYHQlATT6QRBcANJyQE3QZpOzDNUoCFPcBfUqPNEbCS Mswt0MQBTfYCDbQwUvJvWxPKFcJUIhTFviRZAvVZM2 Rcj9ZPSdUXDzCE7MTzNcIVZxCZP5EBYuHFHyVZVxrh2DEHIjYUOoPOT4PSUdNFVuJOFkSDtjSVGcCXT6 TjF3SNEmQXExZA6EYiLgIFDcZVK7EcPfKRJrNTZzuz5XZBYgUMIkSrCnUKLnVLEzQBYbCSneLJIrNEB7 ThI1GRHcPFCzPQ5KTsWtZRHlOQw3FtCuYGYpOMLvfa 6YNXReXHVjNYg4YhCwBBKlFYNcRMklFBOpDHZ2VZJoWWOqSQYeDX4QUpDlFOJrQQysAogpXVPnGAGlod 5MXVNvTDTxGGMaVSIbTBPiWLCdRZhdGRMyZDJlXqg8MEXtZGYtXS7JKfXyWWAcTmQ2MqzyAQFkHMThqr 4TBBVqNUUuHJz0TjYqQGSoIHSmGVwsFNCgAFXlVPYe SLAwDXVsBB8HKoKaUFWcPaA8GmweHRLvCPSfdv2ADPYlCZZqLuHmXhDcDGGuWQQvFFylUADeEXNkBUw8 HZThEJQbTD9QBqIvHAZaHlYzWnMiCCLeYHYzfo7IgVGlyCnkbm1KODzKGp8VsOvjXAK8GTksDe7jpBOq VhQwIZYBVn4JjpTqNOPyOWQVFKigIQGcVLEoZUNbDU ViNnPtJbXgYeYxLcKqBOZaPFVmOEK6TVG5TlI7DMHjQmPeRQEsYQCuU9XyCzT2PUU6YFXjYPXpHtbiIW Y+WT6vVUx+Sz7Nx5RzycH9itRgPXrqXjP3BX6UXKKWC8CFPq== ID Date Data Source [id number] 03/13/2021 02:24:18 PM EDT [facility] Name Value Range Interpretation Code Description Data Stephanie rce(s) Supporting Document(s) Care Plan [facility] QGUYUh1fNoXNLqRw13/ZRAyzWGJfp7JfZUbxKBq8UKjkSUXiL5QhPCQ8pQ8fSXU8DWeRMiXlIsHbUICf lbm [file] o+5prSOTThkWTv7E1ke+commercial engineer/HIvLLltdtVtdirlIpEr2+6p5wf82qwxLCJFXQwIqWkHrEUyglGuJgK3x [file] Lead Mechanical Engineer+cPQ2vbWv1IJgnIt9Lsg5tKaw4x0eV/CrQ0ydy0u [file] AgICAgICAgICAgICAgICAgICAgICAgICAgICAgICAg ICAgICAgICAgICAgICAgICAgICAgICAgICAgICAgICAgICAgICAgICAgICANCiAgICAgICAgICAgICAg ICAgICAgICAgICAgICAgICAgICAgICAgICAgICAgICAgICAgICAgICAgICAgICAgICAgICAgICAgICAg ICAgICAgICAgICAgICAgICAgICAgICAgICANCiAgIC AgICAgICAgICAgICAgICAgICAgICAgICAgICAgICAgICAgICAgICAgICAgICAgICAgICAgICAgICAgIC AgICAgICAgICAgICAgICAgICAgICAgICAgICAgICAgICAgICANCiAgICAgICAgICAgICAgICAgICAgIC AgICAgICAgICAgICAgICAgICAgICAgICAgICAgICAg ICAgICAgICAgICAgICAgICAgICAgICAgICAgICAgICAgICAgICAgICAgICAgICANCiAgICAgICAgICAg ICAgICAgICAgICAgICAgICAgICAgICAgICAgICAgICAgICAgICAgICAgICAgICAgICAgICAgICAgICAg ICAgICAgICAgICAgICAgICAgICAgICAgICAgICANCi AgICAgICAgICAgICAgICAgICAgICAgICAgICAgICAgICAgICAgICAgICAgICAgICAgICAgICAgICAgIC AgICAgICAgICAgICAgICAgICAgICAgICAgICAgICAgICAgICAgICANCiAgICAgICAgICAgICAgICAgIC AgICAgICAgICAgICAgICAgICAgICAgICAgICAgICAg ICAgICAgICAgICAgICAgICAgICAgICAgICAgICAgICAgICAgICAgICAgICAgICAgICANCiAgICAgICAg ICAgICAgICAgICAgICAgICAgICAgICAgICAgICAgICAgICAgICAgICAgICAgICAgICAgICAgICAgICAg ICAgICAgICAgICAgICAgICAgICAgICAgICAgICAgIC ANCiAgICAgICAgICAgICAgICAgICAgICAgICAgICAgICAgICAgICAgICAgICAgICAgICAgICAgICAgIC AgICAgICAgICAgICAgICAgICAgICAgICAgICAgICAgICAgICAgICAgICANCiAgICAgICAgICAgICAgIC AgICAgICAgICAgICAgICAgICAgICAgICAgICAgICAg ICAgICAgICAgICAgICAgICAgICAgICAgICAgICAgICAgICAgICAgICAgICAgICAgICAgICANCjw/eHBh S4ypdFNyorP2L8atEy0QNb8ONQ1wq1ZnNZEaDYebxpCvYqcWIsQqURQoGmrCTsx7HLhdHJ4YhYXsC2Oe T3PsPUxgHH3QKBErUPLmeMZrITFiQZQjBjL3XLQtPC eaVN1ToXGhZDcwEHIzXSMiWfAuPYJuPR5KLGSdT635flBcAh3ANm5NMqYhSJ8txg3ZRknwKUVlEmtNMx b9BKwnZI1WaMMjyORhDAWdCOMBUnAnC8ofw0QtUsimFRXTFMptCF5Hn9AmnYBlOBv+Uo7CJS1aj1MfNM qoTVXdZO3cmi4JSGnFZxGzC7OgfMmdDENytbBoAPge ibUbzAYWf7NjGsJPT7X9GH4oCNRYSOZ5QKncSv6aRROxWOBhDlEgBMNHIS7DNAMoYFWapYZwEWNhGRGA KF0JCHwiRUZ2XhcsytRiuLEeWApwJN2LHDSgfyAyKlftTIJDMWx+Rt9DIM4hr1KcBHbyOLDnJP4rva2M PEzAKqWvE2W8sOSkX6H3MGqrPd4ITXSoYDHnOjGxCK DOJHkcVG1NSA6vxrB3BU8XpROeXAZtGDWaxXAoVTc4F14atABtEXrnDL4DPTO+Dillon+Of9FGIQmWKFkUG UtTiIaQYPKIkAbW8MoC7GPr2VrK0OoHN19bEccqhXgAHpdOH1JXH0wJREqOZYPUQ4QjIPdbD8awyAcNu NzMHQWKsMhX12qfQDyNDQfAML5ZFAbPo9XVEGpU8Za vpJpaLkvmvWeURByYRJZXX4HTMbdrzWpkJTxlMdaII34fQuiCQ4YDj8NZaSxRD0lxu6AmNLpEe2YSWBt NJ2KNQUcQDJsLZBuIWD3MDNbLgYvXWmeDASeFRZdDTZ8NWLeRSLqLH8XRkQmMENbXnG3LBeeRDQxZMRc fj3DMDBeNWAbDHJ7WUWrEFGgOBVvEJsoHTHdOFAxCS B8GMOpMCRjSV6AZhIyBTVkCCE8NEbmSMTyIFBphm1KXRQpTNVmDgymDaEjZXFrGLZsPFgqYSGrJQH8NG xtWGEbJYWyHM1FVjPlJHAkNHKpOTKtKMEtDDSeum1IECVlCAKhTZJ7BXDeYXGxZQWsZWcwIJJmMBU9YI F5XJZeXQEmXS0RCeZrOAEqWUH9QUOpSLKrIEFpjh1N HBQzAAVjFxXcGJHyZJZtQFWfUCdqNCNrWYP8Hbz5DTUhSJGzJA4MXjVwNOXhNCX0LFBoCFLiXGQnyt8L CLUxGSQbFCIjMBPhMNUlZYCtMCitRRYtLAV6SrF8GUWuCHKpCN5MVoTiPODaAWf1BFLfSOJnNTZmbb6V BMKhOOLrNYV0HDXxLFTtEQKuUBwkKNPgYJOtOfOyLK WqMAZmHY4OUfMoICCoFsYcGRXiRPIeKQKnlh2FFUWrXQCdATK3STKeTGHrVVOdCTkiMKZqBASyLBB6WI AtOIXwBJ5CRmBlELRgEfP3JGenBUIvLADsig7LPCRxYUPqBkP9OTHiCFEgIPYhFAeqDBZiIUDaRKC3JA QlVZSmIE5OCsYlBHFeSzQsZAUdNNSlEUTlir5SRKMt WCErANr9CRIuIPQxTQVdPFqvEDLsERE6YOL2PIMwTTGmOF8WMyTzREVyGrR9IWGaDMTbXDHdcn6AfCVc qSbkkj7RYWiBBj4YwOzkLUSwRXcfRb3miEBlRIAbJDBAXp7JaeStZQZuBGRQPSusAPYjFQYuIsVgEQxy JcVfF3P2ZEr1XSNzWrt8LdOcBfz5X4F8OsT0AVGaYB O7JBTmQSBuNJIiKGeiGDLkNhW5PtZbXSWiPpH+PV8zVRh+Yl6Wd0WmqnG9zdPnHSjvBPAlOK8TTGUZM1 YNCg== ID Date Data Source [id number] 03/13/2021 02:22:43 PM EDT [facility] Name Value Range Interpretation Code Description Data Stephanie rce(s) Supporting Document(s) Nursing Note [facility] ENSCHo4vUlDKTfQb76/ISOtfZCJet9CeIKjlRYk5KPztCIWfW2PqSEX1zR5sLMN2EZjZSkFrXuWkOBQg lbm [file] ID Date Data Source [id number] 03/13/2021 11:15:10 AM EDT [facility] Name Value Range Interpretation Code Description Data Stephanie rce(s) Supporting Document(s) ED Triage Notes [facility] OATCMt1cBkEPFkDk01/DRDghBLKrh9RzNBwkILv8KFkbXMBoC0GgLQJ8tJ3bHTS9YLvUVpJoHyWiNJWc lbm [file] AgICAgICAgICAgICAgICAgICAgICAgICAgICAgICAgICAgICAgICAgICAgICAgICAgICAgICAgICAgIC PbMXPlJNViVAEpAFBlJNLhWZPpZHIxPKAvWFBfEKXcBPNqPF7KQCKgSIFgGRVnXDCdXNQxSURzBOZfGW AgICAgICAgICAgICAgICAgICAgICAgICAgICAgICAg SVBoZUTrKTRiRGVbRNBsRPFsHHNvDCFzFROkRSDxPVDiSIRnQJOsNVSqSEKiGD1QFUErOMWwILLyKJMp ICAgICAgICAgICAgICAgICAgICAgICAgICAgICAgICAgICAgICAgICAgICAgICAgICAgICAgICAgICAg ZBCtAEDgHWLsBTSyFSPzCEZbMTZuBAAlUITfFD6ILM AgICAgICAgICAgICAgICAgICAgICAgICAgICAgICAgICAgICAgICAgICAgICAgICAgICAgICAgICAgIC CqGORaZRKgRQDyUHPbAXUsQQMsBTBcPRVbRKOqCPOdKGCkXDAhIC9THGBlHBUmYMJaZIMyUZEbYVSxBL AgICAgICAgICAgICAgICAgICAgICAgICAgICAgICAg PBVbSCQyPMJrQFMmTRBnBXLhERYrJIWbYXKvGTJuNXKaQBBdAKRhTRLnLABtHKXkKZ9IEKLpCKDfQNZt ICAgICAgICAgICAgICAgICAgICAgICAgICAgICAgICAgICAgICAgICAgICAgICAgICAgICAgICAgICAg ICAgICAgICAgICAgICAgICAgICAgICAgICAgICAgIA 0KICAgICAgICAgICAgICAgICAgICAgICAgICAgICAgICAgICAgICAgICAgICAgICAgICAgICAgICAgIC XsTEStCRRoCDUuSQPpZKHePIZyPASkJKIgSVUvNNFzWHZjIHCyKAGzUF4MDLBvZCAcINTrIXUlTBTeBE AgICAgICAgICAgICAgICAgICAgICAgICAgICAgICAg BUHpNABaRUGoBMWwLMXwIZXiSJXdAVWtNTGgDTSnAVFkVNPjTVOtLFSqMVNeXYMhIVLmML9DFZKjFDDz ICAgICAgICAgICAgICAgICAgICAgICAgICAgICAgICAgICAgICAgICAgICAgICAgICAgICAgICAgICAg ICAgICAgICAgICAgICAgICAgICAgICAgICAgICAgIC MaCD5RIHTkHHSiMUHrGLEtGFTjVWFvIQEbLWIbPKOtPFHtRTOaQLFbQKGyBHXsKLQnEBQuCQKlPJAhQV JfGEOeRJHcXMEnHBIaRFCrLNLkXXTuFJJsXCLwREMiLEVsLKAfUEVqPDRtOH1WIA39qBTpb6T6LLEmDM 0ndyc/Sk1IUArjvzXerYItKT2DKzJbSS8jrh3UMxUo SE4orw9VFYuMScJbL3A6wVAzMCQuCZVTUuBiC02qUGykVd27VDmoOJSyNeSrCAt0Wb8EAfHpQ5ceGDKs YlA4NQMaLlLsVIzeDG8Ov6JssWPjYMe+Wl8ATT7fj9HlQEztUbQiWK5fjc6ZHAsBNbQsT1HyxlZ9FEMb JZTwOm9IHKXcUELygVAyBiJvNDVRSyTuY8KhbU56LB ENCj4+TFhxhqAzYbtWTaEzVPWxo7CxCFx2XR0PYWJnSIr9kZHiZFPvCGXdVNsrPK7xtIMcAKK3LFPjyF YyPASoojM3bE10cWNzWIHVRJL4INylDv9pOKTwHKDuXaEaBEIFBR6IOWIqOZTvbBTsAZKpLGLYVY2DWF diGGM8JzgxfrQydQAvNOqmGF8ACAFubhDpZfXhFJPJ DQo+Cz2TTS6kk1GfCMgzTIWtQI6xsf2YTJgOBxXnB6T3yNXmB0G6ZTlxOh7XQWLsNQDcZbMeRCHWWUfp JN4MGJ2gvbG7PJ1UbTFaINRhSCDutSLtVTo5Z61bqKIuUZkvZL5EBNF+Dillon+Hj4FFAYeIZNxPTAcTzFk PIACCmKeX8EzY1QDx6FmU6FwTT95rAkiwnEcEAmaCS 1DEZ4gSWKdADYSOU0ClKVvhM5zylLkVkFuPPWBRaTvX86gxAZvMSOvFUQvNAIdYp7OQMZxG1AdsiAbnW vstbIwZAUmHELNEF9KNBfdcxAfuFSmhHvoCP62yCctAD0FKm2BAvXiQW7kqd5OaIZgXu0FTQFvJX9HVZ NcIUUfNDOqXYE1BZJqPnUkMUefOPVjXAJuTCR8MLLs NCFnUC0QOjMwYWVvCCo7QwnnJFVwMHSbzk2SGQEzHKQzARAkLRWgIRBfQZIqWHgjSDSdLXGnUIQ5JJPn LUBvKO6FCbNqYLKhSWTlZRpfBGXjPKWvlq9QRDAwIOReFBAjAqClILNhUUKsXDrqQBLkSXHfXUYlCOGt JULaLA7MNiSkIOIwUPW4EiChHOOjCYWgzj3FWLUeJS YrMcn1LjJsPGPaADZbMXpsKFKmJXHoOOK9EMRkXHIqES1VNjLeCXKlXYUaOSJuYAWzOOTunv5KGWSrCU EeFHU4NKEyEJTmCWYbFYvrOPJmZUO1RcS7MPEnPALjTF2RYbLlGAZxLZJ8FKSpXBXyNAWwcz1OUXUuQB TkOqI4KKPbGYUaSCXcKDucZKPwLGH8Zsn7OIAtRAWc FQ1PPxKxPNMlXNi5CYLmYPZtRWTxal2ZEYFqXQPjCPF1AbYrFIXhSWMiFYkrHBJaJDD5LiluHEDxWSEw CM7CRjMrKUDzTXa8BFFqYXLkKJHmag0WXETtAEDqHYY0ZCXbUUDkHCAgUZmrOCTcANSlUtp2CKZkYBQc VD5GSzZlVCEkWgK7KxDtOGInHJUcoa8RSBFgXRZhQH ikKUMhFRXxOYViYYp0iqCitNGfMNl9YY3RB4XpayZsMzQUYg8Nj937ERI1PSJwMc4MA8mvYa4gRADzGQ LORd1UXLj0AhylQQCdLKZzZyQnOWYwB6R7IkT3MBA5XDIuFGK4LuD+WZr6HPZ9MlYzRDIjVnEaKRPfDV fbVQm7AccwMVLjYTE9Gz3nOEVZIh0+AIokdXJhxVfuKXEUJrHjUPM0NLseNZUWGx7K ID Date Data Source [id number] 03/11/2021 08:16:00 PM EDT [facility] Name Value Range Interpretation Code Description Data Stephanie rce(s) Supporting Document(s) SARS coronavirus 2 RNA [Presence] in Res piratory specimen by [facility]DE[facility] with probe detection NEGATIVE [facility] This lab was ordered by [facility] a nd reported by [facility]. ID Date Data Source [id number] 03/05/2021 09:30:00 PM EDT [facility] Name Value Range Interpretation Code Description Data Stephanie rce(s) Supporting Document(s) Respiratory specimen severe acute respir atory syndrome coronavirus 2 (SARS-CoV-2) RNA Negative (qualifier value) [facility] This lab was ordered by [facility] and reported by . ID Date Data Source [id number] 03/05/2021 10:26:00 PM EDT [facility] First test? UNKNOWNEmployed in [facility] re? UNKNOWNSymptomatic per CDC? UNKNOWNIf yes date of onset? 03/05/21Hospitalized? UNKNOWNICU? UNKNOWNResident in congregated care? [place] [facility] YES? UNKNOWN Name Value Range Interpretation Code Description Data Stephanie rce(s) Supporting Document(s) SARS-CoV-2 RNA Negative Normal (applies to non-numeric r esults) [facility] Negative results should be treated as [...] Certificate of Accreditation. Factsheets for healthcare providers: https://www.fda.gov/media/569290/download Factsheets for patients: https://www.fda.gov/media/909869/download The ID NOW Instrument is a rapid molecular in vitro diagnostic test utilizing an isothermal nucleic acid amplification technology intended for the qualitative detection of nucleic acid from the SARS-CoV-2 viral RNA. THIS IS A STATE REPORTABLE COMMUNICABLE DISEASE. Manual entry verified by Aysha Andrade 03/05/212224 ID Date Data Source [id number] 03/05/2021 10:15:00 PM T [facility] Value Range Interpretation Code Description Data Stephanie rce(s) Supporting Document(s) Troponin I 0.000-0.056 Normal (applies to non-numeric resu lts) [facility] ID Date Data Source [id number] 03/05/2021 10:15:00 PM EDT [facility] Value Range Interpretation Code Description Data Stephanie rce(s) Supporting Document(s) Acetaminophen 10.0-30.0 Below low normal [facility] ID Date Data Source [id number] 03/05/2021 10:15:00 PM EDT [facility] Value Range Interpretation Code Description Data Stephanie rce(s) Supporting Document(s) Magnesium 1.8-2.4 Normal (applies to non-numeric resul ts) [facility] ID Date Data Source [id number] 03/05/2021 10:15:00 PM EDT [facility] Name Value Range Interpretation Code Description Data Stephanie rce(s) Supporting Document(s) Sodium 142 mmol/L 136-145 Normal (applies to non-numeric resul ts) [facility] Potassium 3.5-5.1 Normal (applies to non-numeric resul ts) [facility] Chloride 107 mmol/L 98-107 Normal (applies to non-numeric resul ts) [facility] Carbon Dioxide CO2 21-32 Normal (applies to non-numer ic results) [facility] Anion Gap 5.0-16.0 Normal (applies to non-numeric resul ts) [facility] BUN 17 mg/dL 7-18 Normal (applies to non-numeric results) [facility] Creatinine,Serum 0.7-1.2 Normal (applies to non-numeric results) [facility] GFR >60 Normal (applies to non-numeric results) [facility] Glucose Level 93 mg/dL 60-99 Normal (applies to non-numeric re sults) [facility] Reference range is only applicable when patient is fasting Note the following drug interference: Sulfasalazine Sulfapyridine Can see falsely depressed Can see falsely elevated result with up to 17% results with up to 11% decrease in measurement increase in measurement Recommend patients be collected for this test prior to administration of either drug. Calcium 8.5-10.1 Normal (applies to non-numeric resul ts) [facility] Bilirubin,Total 0.1-1.9 Normal (applies to non-numeric results) [facility] SGOT(AST) 21 U/L 15-37 Normal (applies to non-numeric resul ts) [facility] Note the following drug interference: Sulfasalazine Sulfapyridine Can see falsely depressed Can see falsely elevated result with up to 10% results with up to 10% decrease in measurement increase in measurement Recommend patients be collected for this test prior to administration of either drug. SGPT(ALT) 43 U/L 12-78 Normal (applies to non-numeric resul ts) [facility] Note the following drug interference: Sulfasalazine Sulfapyridine Can see falsely depressed Can see falsely elevated result with up to 29% results with up to 10% decrease in measurement increase in measurement Recommend patients be collected for this test prior to administration of either drug. Alkaline Phosphatase 113 U/L 38-126 Normal (applies to non-num deena results) [facility] can increase Alkaline Phosp le vels up to 2 times the normal adult value. Normal values for children and adolescents are 2 to 3 times the normal adult value. Total Protein 6.0-8.2 Normal (applies to non-numeric re sults) [facility] Albumin Level 3.4-5.0 Normal (applies to non-numeric re sults) [facility] ID Date Data Source [id number] 03/05/2021 10:15:00 PM EDT [facility] Name Value Range Interpretation Code Description Data Stephanie rce(s) Supporting Document(s) Salicylate 2.8-20.0 Below low normal [facility] ID Date Data Source [id number] 03/05/2021 10:14:00 PM EDT [facility] Name Value Range Interpretation Code Description Data Stephanie rce(s) Supporting Document(s) Ethanol Less than 10.0 Normal (applies to non-numeric r esults) [facility] ID Date Data Source [id number] 03/05/2021 09:36:00 PM EDT [facility] Name Value Range Interpretation Code Description Data Stephanie rce(s) Supporting Document(s) White Blood Count 3.5-10.5 Above high normal [facility] Red Blood Count 3.90-5.00 Normal (applies to non-numeric results) [facility] [facility] Hemoglobin 12.0-15.5 Normal (applies to non-numeric resul ts) [facility] Hematocrit 34.9-44.5 Normal (applies to non-numeric resul ts) [facility] Mean Corpuscular Volume 81.2-95.1 Normal (applies to non- numeric results) [facility] Mean Corpuscular Hgb 25.6-32.2 Normal (applies to non-num deena results) [facility] Mean Corpuscular Hgb Conc 32.0-36.0 Normal (applies to no n-numeric results) [facility] Red Cell Distribution Width 11.9-15.5 Normal (appli es to non-numeric results) [facility] Platelet Count 258 x10 3/uL 150-450 Normal (applies to non-numeric results) [facility] Mean Platelet Volume 9.4-12.4 Normal (applies to non-num deena results) [facility] Neutrophils% (Auto) 31.0-71.0 Normal (applies to non-nume frank results) [facility] Lymphocytes% (Auto) 20.0-55.0 Normal (applies to non-nume frank results) [facility] Monocytes% (Auto) 4.0-12.0 Normal (applies to non-numeri c results) [facility] Eosinophils% (Auto) 1.0-8.0 Below low normal [facility] Basophils% (Auto) 0.0-2.0 Normal (applies to non-numeri c results) [facility] Immature Granulocytes% (Auto) 0.0-2.0 Normal (alexander lies to non-numeric results) [facility] Neutrophils# (Auto) 1.50-6.20 Above high normal [facility] Lymphocytes# (Auto) 1.20-4.00 Normal (applies to non-nume frank results) [facility] Monocytes# (Auto) 0.00-0.90 Normal (applies to non-numeri c results) [facility] Eosinophils# (Auto) 0.00-0.50 Normal (applies to non-nume frank results) [facility] Basophils# (Auto) 0.00-0.20 Normal (applies to non-numeri c results) [facility] Immature Granulocytes# (Auto) 0.00-7.00 No rmal (applies to non-numeric results) [facility] ID Date Data Source [id number] 03/05/2021 10:00:00 PM [facility] Collected By: Nurse Initials: ayleen wyatt Collected: 1999 Collected By: Nurse Initials: ayleen wyatt Collected: 1999 Collected By: Nurse Initials: ayleen wyatt Collected: 1999 Name Value Range Interpretation Code Description Data [facility] rce(s) Supporting Document(s) RBC,Urine None Seen [facility] WBC,Urine None Seen [facility] Squamous Cells,Urine None Seen [facility] Amorphous Sediment,Urine None Seen [facility] Bacteria,Urine None Seen [facility] ital ID Date Data Source [id number] 03/05/2021 10:00:00 PM [facility] Collected By: Nurse Initials: ayleen wyatt Collected: 1999 Collected By: Nurse Initials: ayleen wyatt Collected: 1999 Collected By: Nurse Initials: ayleen wyatt Collected: 1999 Name Value Range Interpretation Code Description Data [facility] rce(s) Supporting Document(s) Color,Urine Colorl-Dk Y Normal (applies to non-numeric res ults) [facility] Clarity,Urine Clear Normal (applies to non-numeric re sults) [facility] Specific Randle,Urine 1.005-1.030 [facility] pH,Urine 5.0-8.0 Normal (applies to non-numeric resul ts) [facility] Protein,Urine Negative [facility] [place] Glucose,Urine Negative Normal (applies to non-numeric re sults) [facility] Ketones,Urine Negative Normal (applies to non-numeric re sults) [facility] Blood,Urine Negative Normal (applies to non-numeric resu lts) [facility] Bilirubin,Urine Negative Normal (applies to non-numeric results) [facility] Urobilinogen,Urine 0.2-1.0 Normal (applies to non-numer ic results) [facility] Leukocyte Esterase,Urine Negative Normal (applies to non -numeric results) [facility] Nitrite,Urine Negative Normal (applies to non-numeric re sults) [facility] ID Date Data Source [id number] 03/05/2021 10:00:00 PM EDT [facility] Collected By: Nurse Initials: ayleen wyatt Collected: 1999 Collected By: Nurse Initials: ayleen Barry me Collected: 1999 Collected By: Nurse Initials: ayleen wyatt Collected: 1999 Name Value Range Interpretation Code Description Data Stephanie rce(s) Supporting Document(s) HCG,Ur Negative Normal (applies to non-numeric results) [facility] ID Date Data Source [id number] 03/05/2021 08:25:00 PM EDT [facility] Name Value Range Interpretation Code Description Data Stephanie rce(s) Supporting Document(s) UDS Benzodiazepines Screen Negative Normal (applies to n on-numeric results) [facility] UDS Cocaine Screen Negative Normal (applies to non-numer ic results) [facility] UDS Ampetamine Screen Negative Normal (applies to non-nu meric results) [facility] UDS Cannabinoids Screen Negative Normal (applies to non- numeric results) [facility] UDS Opiates Screen Negative Normal (applies to non-numer ic results) [facility] UDS Barbiturates Screen Negative Normal (applies to non- numeric results) [facility] Threshold Levels Benzodiazepine 200 ng/mL Cocaine 300 ng/mL Amphetamines 1000 ng/mL Cannabinoids (THC) 50 ng/mL Opiates 300 ng/mL Barbiturates 200 ng/mL All positive findings are presumptive and unconfirmed. Confirmation of positive results are performed only at request of provider. Unconfirmed results must not be used for non-medical purposes (i.e. preemployment and legal purposes) ID Date Data Source [id number] 03/04/2021 03:33:00 PM EDT [facility] Exam Number: [id number] Reported By: - JEREMIAH PEOPLES MD Signed By: JEREMIAH PEOPLES MD Name Value Range Interpretation Code Description Data Stephanie rce(s) Supporting Document(s) ID Date Data Source [id number] 03/03/2021 08:53:00 PM EDT [facility] Name Value Range Interpretation Code Description Data Stephanie rce(s) Supporting Document(s) ADTF-[id number]-result Set.fm XPERT XPRESS SARS-CO V-2 REALTIME PCR ASSAY HAS EMERGENCY USE AUTHORIZATION (EUA) FROM THE FDA. [facility] This lab was ordered by [facility] and reported by [facility]. ID Date Data Source [id number] 03/03/2021 02:50:00 AM [facility] Name Value Range Interpretation Code Description Data Stephanie rce(s) Supporting Document(s) Respiratory specimen severe acute respir atory syndrome coronavirus 2 (SARS-CoV-2) RNA Negative (qualifier value) [facility] This lab was ordered by [facility] and reported by . ID Date Data Source [id number] 03/03/2021 03:11:00 AM EDT [facility] First test? [facility]ed in [facility] re? UNKNOWNSymptomatic per [facility]? UNKNOWNHospitalized? UNKNOWNICU? UNKNOWNResident in congregated care? [facility] [place] [facility] UNKNOWN? UNKNOWN Name Value Range Interpretation Code Description Data Stephanie rce(s) Supporting Document(s) SARS-CoV-2 RNA Negative Normal (applies to non-numeric r esults) [facility] Negative results should be treated as [...] Certificate of Accreditation. Factsheets for healthcare providers: https://www.fda.gov/media/760083/download Factsheets for patients: https://www.fda.gov/media/872460/download The ID NOW Instrument is a rapid molecular in vitro diagnostic test utilizing an isothermal nucleic acid amplification technology intended for the qualitative detection of nucleic acid from the SARS-CoV-2 viral RNA. THIS IS A STATE REPORTABLE COMMUNICABLE DISEASE. Manual entry verified by Marion Thompson 03/03/21310 ID Date Data Source [id number] 03/03/2021 02:26:00 AM T [facility] Name Value Range Interpretation Code Description Data Stephanie rce(s) Supporting Document(s) UDS Benzodiazepines Screen Negative Normal (applies to n on-numeric results) [facility] UDS Cocaine Screen Negative Normal (applies to non-numer ic results) [facility] UDS Ampetamine Screen Negative Normal (applies to non-nu meric results) [facility] UDS Cannabinoids Screen Negative Normal (applies to non- numeric results) [facility] UDS Opiates Screen Negative Normal (applies to non-numer ic results) [facility] UDS Barbiturates Screen Negative Normal (applies to non- numeric results) [facility] Threshold Levels Benzodiazepine 200 ng/mL Cocaine 300 ng/mL Amphetamines 1000 ng/mL Cannabinoids (THC) 50 ng/mL Opiates 300 ng/mL Barbiturates 200 ng/mL All positive findings are presumptive and unconfirmed. Confirmation of positive results are performed only at request of provider. Unconfirmed results must not be used for non-medical purposes (i.e. preemployment and legal purposes) ID Date Data Source [id number] 03/03/2021 02:21:00 AM [facility] Collected By: Nurse Initials: [place] Time Collected: 157 Collected By: Nurse Initials: [place] Time Collected: 157 Name Value Range Interpretation Code Description Data Stephanie rce(s) Supporting Document(s) Color,Urine Colorl-Dk Y Normal (applies to non-numeric res ults) [facility] Clarity,Urine Clear Normal (applies to non-numeric re sults) [facility] Specific Randle,Urine 1.005-1.030 [facility] pH,Urine 5.0-8.0 Normal (applies to non-numeric resul ts) [facility] Protein,Urine Negative Normal (applies to non-numeric re sults) [facility] Glucose,Urine Negative Normal (applies to non-numeric re sults) [facility] Ketones,Urine Negative Normal (applies to non-numeric re sults) [facility] Blood,Urine Negative Normal (applies to non-numeric resu lts) [facility] Bilirubin,Urine Negative Normal (applies to non-numeric results) [facility] Urobilinogen,Urine 0.2-1.0 Normal (applies to non-numer ic results) [facility] Leukocyte Esterase,Urine Negative Normal (applies to non -numeric results) [facility] Nitrite,Urine Negative Normal (applies to non-numeric re sults) [facility] ID Date Data Source [id number] 03/03/2021 02:21:00 AM EDT [facility] Collected By: Nurse Initials: [place] Time Collected: 0158 Collected By: Nurse Initials: [place] Time Collected: 0158 Name Value Range Interpretation Code Description Data Stephanie rce(s) Supporting Document(s) HCG,Ur Negative Normal (applies to non-numeric results) [facility] ID Date Data Source [id number] 03/03/2021 02:54:00 AM [facility] Name Value Range Interpretation Code Description Data Stephanie rce(s) Supporting Document(s) D-Dimer,Quant 0.19-0.50 Normal (applies to non-numeric re sults) [facility] The negative predictive value for DVT [...] on anticoagulant therapy. ID Date Data Source [id number] [facility] Value Range Interpretation Code Description Data Stephanie rce(s) Supporting Document(s) Ethanol Less than 10.0 Normal (applies to non-numeric r esults) [facility] ID Date Data Source [id number] 03/03/2021 01:55:00 AM EDT [facility] Name Value Range Interpretation Code Description Data Stephanie rce(s) Supporting Document(s) Acetaminophen 10.0-30.0 Below low normal [facility] ID Date Data Source [id number] 03/03/2021 01:55:00 AM [facility] Name Value Range Interpretation Code Description Data Stephanie rce(s) Supporting Document(s) Sodium 143 mmol/L 136-145 Normal (applies to non-numeric resul ts) [facility] Potassium 3.5-5.1 Normal (applies to non-numeric resul ts) [facility] Chloride 107 mmol/L 98-107 Normal (applies to non-numeric resul ts) [facility] Carbon Dioxide CO2 21-32 Normal (applies to non-numer ic results) [facility] Anion Gap 5.0-16.0 Normal (applies to non-numeric resul ts) [facility] BUN 20 mg/dL 7-18 Above high normal [facility] ospital Creatinine,Serum 0.7-1.2 Normal (applies to non-numeric results) [facility] GFR >60 Normal (applies to non-numeric results) [facility] Glucose Level 101 mg/dL 60-99 Above high normal [facility] Reference range is only applicable when patient is fasting Note the following drug interference: Sulfasalazine Sulfapyridine Can see falsely depressed Can see falsely elevated result with up to 17% results with up to 11% decrease in measurement increase in measurement Recommend patients be collected for this test prior to administration of either drug. Calcium 8.5-10.1 Normal (applies to non-numeric resul ts) [facility] Bilirubin,Total 0.1-1.9 Normal (applies to non-numeric results) [facility] SGOT(AST) 22 U/L 15-37 Normal (applies to non-numeric resul ts) [facility] Note the following drug interference: Sulfasalazine Sulfapyridine Can see falsely depressed Can see falsely elevated result with up to 10% results with up to 10% decrease in measurement increase in measurement Recommend patients be collected for this test prior to administration of either drug. SGPT(ALT) 44 U/L 12-78 Normal (applies to non-numeric resul ts) [facility] Note the following drug interference: Sulfasalazine Sulfapyridine Can see falsely depressed Can see falsely elevated result with up to 29% results with up to 10% decrease in measurement increase in measurement Recommend patients be collected for this test prior to administration of either drug. Alkaline Phosphatase 116 U/L 38-126 Normal (applies to non-num deena results) [facility] can increase Alkaline Phosp le vels up to 2 times the normal adult value. Normal values for children and adolescents are 2 to 3 times the normal adult value. Total Protein 6.0-8.2 Normal (applies to non-numeric re sults) [facility] Albumin Level 3.4-5.0 Normal (applies to non-numeric re sults) [facility] ID Date Data Source [id number] 03/03/2021 01:55:00 AM EDT [facility] Name Value Range Interpretation Code Description Data Stephanie rce(s) Supporting Document(s) Salicylate 2.8-20.0 Below low normal [facility] ospital ID Date Data Source [id number] 03/03/2021 01:55:00 AM EDT [facility] Name Value Range Interpretation Code Description Data Stephanie rce(s) Supporting Document(s) Magnesium 1.8-2.4 Normal (applies to non-numeric resul ts) [facility] ID Date Data Source [id number] 03/03/2021 01:55:00 AM EDT [facility] Name Value Range Interpretation Code Description Data Stephanie rce(s) Supporting Document(s) Troponin I 0.000-0.056 Normal (applies to non-numeric resu lts) [facility] ID Date Data Source [id number] 03/03/2021 01:19:00 AM EDT [facility] Name Value Range Interpretation Code Description Data Stephanie rce(s) Supporting Document(s) White Blood Count 3.5-10.5 Above high normal [facility] Red Blood Count 3.90-5.00 Normal (applies to non-numeric results) [facility] Hemoglobin 12.0-15.5 Normal (applies to non-numeric resul ts) [facility] Hematocrit 34.9-44.5 Normal (applies to non-numeric resul ts) [facility] Mean Corpuscular Volume 81.2-95.1 Normal (applies to non- numeric results) [facility] Mean Corpuscular Hgb 25.6-32.2 Normal (applies to non-num deena results) [facility] Mean Corpuscular Hgb Conc 32.0-36.0 Normal (applies to no n-numeric results) [facility] Red Cell Distribution Width 11.9-15.5 Normal (appli es to non-numeric results) [facility] Platelet Count 274 x10 3/uL 150-450 Normal (applies to non-numeric results) [facility] Mean Platelet Volume 9.4-12.4 Below low normal [facility] Neutrophils% (Auto) 31.0-71.0 Normal (applies to non-nume frank results) [facility] Lymphocytes% (Auto) 20.0-55.0 Normal (applies to non-nume frank results) [facility] Monocytes% (Auto) 4.0-12.0 Normal (applies to non-numeri c results) [facility] Eosinophils% (Auto) 1.0-8.0 Below low normal [facility] Basophils% (Auto) 0.0-2.0 Normal (applies to non-numeri c results) [facility] Immature Granulocytes% (Auto) 0.0-2.0 Normal (alexander lies to non-numeric results) [facility] Neutrophils# (Auto) 1.50-6.20 Above high normal [facility] Lymphocytes# (Auto) 1.20-4.00 Normal (applies to non-nume frank results) [facility] Monocytes# (Auto) 0.00-0.90 Normal (applies to non-numeri c results) [facility] Eosinophils# (Auto) 0.00-0.50 Normal (applies to non-nume frank results) [facility] Basophils# (Auto) 0.00-0.20 Normal (applies to non-numeri c results) [facility] Immature Granulocytes# (Auto) 0.00-7.00 No rmal (applies to non-numeric results) [facility] ID Date Data Source [id number] 03/02/2021 11:08:00 AM EDT [address] CONSULTPATIENT NAME: YARELI HATCH MR#: [id number] PHYSICIAN:AUTHOR: Colleen SMITHBogdan DATE: RM#: ERPATIENT : 00HistoryHistory of Presenting IllnessPatient is 20-year-old female, currently single, lives at [facility], pastpsych history of borderline personality disorder, depression disorder andschizoaffective disorderChief complaint: Patient presented with suicidal ideationHistory of present illness: Patient was seen along with nurse practitionerduring this course of assessment. [facility] they do not know how to do their job and to calmher down. She was somewhat upset and that is the reason she said that she wassuicidal but she is no longer suicidal. And she wanted to be discharged backto [facility]. However upon asking how she is going to deal with the situationoutside where patient stated that she feels comfortable talking and having ameeting with [facility] staff tomorrow and try to solve the situation as well. Shestated that she was not suicidal, she wants to go back to [facility] and get some rest, she was [...] rce(s) Supporting Document(s) ID Date Data Source [id number] 03/02/2021 04:06:00 AM EDT [facility] [place] Name Value Range Interpretation Code Description Data Stephanie rce(s) Supporting Document(s) SALICYLATE < 1.7 mg/dL 0.0-20.0 [facility] ID Date Data Source [id number] 03/02/2021 04:06:00 AM EDT [facility] [place] Name Value Range Interpretation Code Description Data Stephanie rce(s) Supporting Document(s) ACETAMINOPHEN < 2.0 ug[facility]mL 0-[facility] Data Source [id number] 03/02/2021 04:06:00 AM [facility] [place] Name Value Range Interpretation Code Description Data Stephanie rce(s) Supporting Document(s) ETOH NONE DETECTED [facility] NONE DETECTED ID Date Data Source [id number] 03/02/2021 04:06:00 AM [facility] [place] Name Value Range Interpretation Code Description Data Stephanie rce(s) Supporting Document(s) GLU 120 mg/dL 70-110 [facility] Patients taking Sulfasalazine may have f alsely depressedGlucose levels. Patients taking Sulfapyridine may havefalsely elevated Glucose levels. Patients should be drawnfor Glucose before the initial administration of eitherdrug. BUN 16 mg/dL 7-23 [facility] CRE 0.685 mg/dL 0.500-1.300 [facility] GFR > 60 mL/min [facility] CHLORIDE 111 mmol/L 99-110 [facility] NA 141 mmol/L 136-147 [facility] POTASSIUM 3.6 mmol/L 3.5-5.1 [facility] TCO2 18 mmol/L 20-33 L [facility] ANION GAP 15.6 10.0-20.0 [facility] CA 8.5 mg/dL 8.3-10.7 [facility] ALKALINE PHOS 118 U/L 45-117 [facility] TP 7.5 g/dL 6.0-7.8 [facility] ALB 3.7 g/dL 3.5-5.0 [facility] ESRD Dialysis patient Albumin reference range: 2.9-4.4 g/dL GL 3.8 g/dL 2.3-3.5 H [facility] A/G 1.0 1.0-2.5 [facility] T. BILIRUBIN 0.2 mg/dL 0.1-1.1 [facility] [employer] [place] Total Bilirubin is n ot recommended forpatients undergoing treatment with eltrombopag (Promacta)due to the potential for falsely elevated results. ALTI 43 U/L 6-54 [facility] Patients taking Sulfasalazine and/or Sul fapyridine may havefalsely depressed ALT levels. Patients should be drawn forALT before the initial administration of either drug. AST 21 U/L 6-38 [facility] Patients taking Sulfasalazine and/or Sul fapyridine may havefalsely depressed AST levels. Patients should be drawn forAST before the initial administration of either drug. ID Date Data Source [id number] 03/02/2021 03:12:00 AM EDT [facility] [place] Name Value Range Interpretation Code Description Data Stephanie rce(s) Supporting Document(s) WBC 9.90 x10E3/uL 4.0-10.5 [facility] RBC 4.15 x10E6/uL 4.20-5.40 [facility] Hemoglobin 12.4 g/dL 12.0-16.0 [facility] Hematocrit 37.0 % 37.0-47.0 [facility] MCV 89.2 fL 81.0-99.0 [facility] MCH 29.9 pg 27.0-31.0 [facility] MCHC 33.5 g/dL 32.7-35.6 [facility] RDW 12.4 % 11.5-14.0 [facility] Platelet count 243 x10E3/uL 150-450 [facility] ital MPV 9.9 fl 6.9-9.5 [facility] Neutrophils 61.6 % 34-64 [facility] Lymphocytes 29.1 % 25-45 [facility] Monocytes 7.2 % 1.7-10.6 [facility] Eosinophils 1.3 % 0.4-7.0 [facility] Basophils 0.3 % 0.1-2.0 N [facility] Imm. Gran. 0.5 % 0.1-2.0 [facility] Abs. Neutro. 6.10 x10E3/uL 1.2-7.6 [facility] [place] Abs. Lymph. 2.88 x10E3/uL 1.0-3.5 [facility] Abs. [place]. 0.71 x10E3/uL 0.1-1.0 N [facility] l Abs. Eosin. 0.13 x10E3/uL 0.1-0.7 [facility] Abs[facility] Baso. 0.03 x10E3/uL 0.0-0.1 [facility] Imm. Gran. 0.05 x10E3/uL 0.0-0.1 N [facility] spital ANRBC% 0 % 0 [facility] ID Date Data Source [id number] 03/02/2021 03:28:00 AM EDT [facility] [place] Name Value Range Interpretation Code Description Data Stephanie rce(s) Supporting Document(s) PCP VISTA NEG NEGATIVE [facility] MINIMUM LEVEL OF DETECTION IS 25 ng/ml BENZODIAZEPINES NEG NEGATIVE [facility] al MINIMUM LEVEL OF DETECTION IS 200 ng/ml COCAINE VISTA NEG NEGATIVE [facility] MINIMUM LEVEL OF DETECTION IS 300 ng/ml AMPHETAMINES NEG NEGATIVE [facility] al MINIMUM LEVEL OF DETECTION IS 1000 ng/ml BARBITURATES NEG NEGATIVE [facility] al CUTOFF CONCENTRATION IS 200 ng/ml CANNABINOIDS [facility]GAT[facility] CUTOFF CONCENTRATION IS 50 ng/ml METHADONE VISTA NEG NEGATIVE [facility] al MINIMUM LEVEL OF DETECTION IS 300 ng/ml OPIATE VISTA NEG NEGATIVE [facility] MINIMUM DETECTION LEVEL IS 300 ng/ml ID Date Data Source [id number] 03/02/2021 03:15:00 AM EDT [facility] [place] Name Value Range Interpretation Code Description Data Stephanie rce(s) Supporting Document(s) HCG QUAL URINE Negative Negative [facility] ID Date Data Source [id number] 03/02/2021 03:15:00 AM EDT [facility] Name Value Range Interpretation Code Description Data Stephanie rce(s) Supporting Document(s) URINE COLOR Yellow [facility] UAPR Cloudy [facility] UGLU Negative NEGATIVE [facility] URINE BILIRUBIN [facility] Trace NEGATIVE [facility] USG 1.028 1.010-1.025 [facility] UBLO Negative NEGATIVE [facility] UpH 5.0 5.0-8.0 [facility] UPRO Negative Negative [facility] UUB 1.0 mg/dL 0.2-1.0 [facility] UNIT Negative Negative [facility] ULEU Negative Negative [facility] ID Date Data Source [id number] 03/02/2021 11:27:00 AM EDT [facility] Physician DocumentationClaxton-Naveen Hinkle edical CenterName: Yareli DuvallAge: 20 yrsSex: FemaleDOB: 2000MRN: [id number] Date: 03/02/2021Time: 02:30Account#: [id number] 5APrivate MD: NONE, - Per PatientED Physician Esteban Argueta Summary:03/02/21 11:12Discharge OrderedLocation: Home Self Care afProblem: an ongoing problem afSymptoms: are unchanged afCondition: Stable afDiagnosis- Adjustment disorder, unspecified afFollowup: af- With: Private Physician- When: 1 week- Reason: Recheck today's complaintsDischarge Instructions:- ADJUSTMENT DISORDER af- Discharge Summary Sheet ns8Jvlap:- Medication Reconciliation af- Medication Reconciliation Form - 2nd Copy afHPI:02/2202:50 This 20 yrs old White Female presents to ER via Police with ox3qtfybmrixn of Psych Problem.02:50 Associated signs and symptoms: Pertinent negatives: abdominal pain, yn1ukosw pain, fever, headache, nausea, shortness of breath, [...] denies any other problems or any other complaints..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 ibuprofen 400 [...] Temp 97.7; Pulse Ox 96% ; Weight wy3772.33 kg; Height 5 ft. 7 in. (170.18 cm);11:27 BP 124 / 76; Pulse 88; Resp 20; Temp 98; Pulse Ox 98% on R/A; fbg02:35 Body Mass Index 36.02 (104.33 kg, 170.18 cm) jw5MDM:02:40 Patient medically screened. th406:41 Data reviewed: vital signs, nurses notes, lab test result(s). ED xh0ojxwyr: Patient remained stable in the ER. Patient here for mentalhealth evaluation as above. Case is endorsed to Dr. Rica oliver of shift pending PSA evaluation and disposition. Patient ismedically clear and has been cooperative..02/2202:38 Order name: Acetaminophen Level; Complete Time: :38 Order name: CBC with diff; Complete Time: :38 Order name: CMP; Complete Time: 05: Order name: ETOH; Complete Time: 05: Order name: Glucose Order name: Salicylate Level; Complete Time: 05: Order name: Triage - Drug Screen; Complete Time: 05:: Order name: UA; Complete Time: 05: Order name: Urine HCG Qualitative; Complete Time: 05: Order name: Diet - Mental Health Tray (call dietary); Complete Time: 504:49002/2202:38 Order name: Belongings List Order name: Document Weight and Height for BMI; Complete Time: 04:: Order name: Mental Health Evaluation Order name: Mental Health Level 3; Complete Time: 04: Order name: VS q shift; Complete Time: 04:: Order name: Medically Cleared for Eval by-Psychosocial, Theater Technician th4(.PSA); Complete Time: 07:27Dispensed Medications:No medications were administeredSignatures:Dispatcher MedHost Anshul Loving MD MD afHowland, Todd, MD MD jo6GhmsfFortunato Mark RN RN od3Unsih, Ratna RN RN kk3 Name Value Range Interpretation Code Description Data Stephanie rce(s) Supporting Document(s) ID Date Data Source [id number] 03/02/2021 11:27:00 AM EDT [facility] Nurse's NotesClaxton-Naveen Medical Tootie terName: Yareli DuvallAge: 20 yrsSex: FemaleDOB: 2000MRN: [id number] Date: 03/02/2021Time: 02:30Account#: [id number] 5APrmonalisa MD: NONE, - Per PatientDiagnosis: Adjustment disorder, unspecifiedPresentation:02/2202:32 Presenting complaint: Patient brought in by [employer] officer Noel Huerta for [address] health evaluation for suicidal thoughts. International [...] large of amount of people live,such as [place] [facility], [facility] care, [facility], etc? no. Have you traveledto a location with widespread or ongoing COVID-19 community spread [facility]? no Have you traveled internationally or hadcontact with someone that has traveled and has been ill in the past 3weeks? no Have you received the COVID vaccine? Yes. CommunicableDisease Screen: Negative for fever>/= 100 degrees Fahrenheit.Communicable disease screen is negative. (-) rash or unusual skinlesion (-) travel/contact with traveler (-) respiratory symptoms.Communication Speaks Hungarian? Yes, is preferred language.02:32 Acuity: Triage 2 jw502:32 Method Of Arrival: Police jw502:34 Acuity Assignment: Triage 2 wl4Jtrsua Assessment:02:34 Sepsis Screening: (1)Signs/symptoms infection Sepsis is not mh1hqfnoumfe. Pain: Denies pain. PSS-3 Now I'm going to ask you somequestions that we ask everyone treated here, no matter what problemthey are here for. It is part of the hospital's policy and it helpsus to make sure we are not missing anything important. Over the past2 weeks, have you felt down, depressed, or hopeless? Yes. Exhibitingdepressed mood. Positive sc reen for depression, provider aware ofpositive screening. Education provided. Over [...] noted. : No deficits noted. 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 ibuprofen 400 [...] threats or abuse. Denies injuries from another. dk0Fxawdaerdoz screening: No deficits noted. Offer of HIV [...] in no apparent distress at this time. ce5Lbtouzc is asleep.06:12 Reassessment: Patient appears in no apparent distress at this time. in2Axwvbiwqdueb:10:54 SAFE Act Report Not Completed. Intervention: Observation Level 3. [address] health consult is initiated at 10:10. Referral Information:Evaluation referral is generated by the patient himself / herself.The patient was referred for evaluation because Suicidal Ideation.10:57 Subjective: The patients chief complaint is SI. Patient is a 20 y/o vw5kqwjz female who was discharged from the inpatient [...] / Agency: [facility] Walk-In appointment in [place] on Wednesday.. LivingEnvironment:. Patient presents to Emergency [...] of patients status at 11:05, Mental Health WIND TURBINE SERVICE TECHNICIAN made awareof pt status at 11:05. Disposition: The patient has a safedestination which is Patient is being discharged back to [facility]. DSM-V DX [place] I diagnosis: Adjustment D/O w mixedemotion, conduct. The patient is not a tire servicer or militarydependent. [place] Suicide Severity Rating Scale: Suicidal IdeationRating 0; Intensity of Ideations Rating 0; Suicidal Behavior Rating 0.Psych:02:37 Subjective: Patient's mood is sad, Delusions are denied, lw5Rwhysowhlrjcmm are denied Having thoughts of suicide. Denies [...] Temp 97.7; Pulse Ox 96% ; Weight al7856.33 kg; Height 5 ft. 7 in. (170.18 [...] armband on for positive identification. Placed in at9axpo. Bed in low position. Side rails up [...] Disposition: Discharged to home ambulatory. fbg11:27 Condition: zvuncofxo13:27 Discharge instructions given to patient, Instructed on dischargeinstructions, follow up and referral plans. medication usage.11:27 Discharge Assessment: Patient awake, alert and oriented x 3. Nocognitive and/or functional deficits noted. Patient verbalizedunderstanding of disposition instructions. Patient verbalizedunderstanding of disposition instructions. Patient has no functionaldeficits.11:27 Patient left the ED. fbgSignatures:Vincenzo Luis, RN RN fbgFedoroAnshul casillas MD MD afStickles, Robert, PSA PSA uc6HuclksrNils Argueta MD MD hf9ZxsfeFortunato humphrey, RN RN xd0AozmrRatna RN RN tr3Zvzvivqfqpj: (The following items were deleted from the chart)11:06 10:54 Referral Information: Evaluation referral is generated by the sc7xssikif himself / herself. rs2 Name Value Range Interpretation Code Description Data Stephanie rce(s) Supporting Document(s) ID Date Data Source [id number] 03/01/2021 11:36:00 AM EDT [facility] [address] CONSULTPATIENT NAME: YARELI HATCH MR#: [id number] PHYSICIAN:AUTHOR: Kary Gray NP DATE: #: ERPATIENT : 00HistoryHistory of Presenting IllnessPatient is 20-year-old female, currently lives at [facility], past psychhistory of mood disorder, borderline [...] stated that she has a friend from [place] that she talksand that friend treats her [...] (08/04/19)DATE SIGNED: 03/01/21 Electronically SignedTIME SIGNED: 1139 KRAY GRAY Name Value Range Interpretation Code Description Data Stephanie rce(s) Supporting Document(s) ID Date Data Source [id number] 03/01/2021 08:18:00 AM EDT [facility] Name Value Range Interpretation Code Description Data Stephanie rce(s) Supporting Document(s) LCOVID-19, CORDELL NEGATIVE [facility] This lab was ordered by [facility] and reported by [facility]. ID Date Data Source [id number] 03/01/2021 08:55:00 AM EDT [facility] [place] Name Value Range Interpretation Code Description Data Stephanie rce(s) Supporting Document(s) COVID-19, CORDELL NEGATIVE NEGATIVE [facility] Methodology: Isothermal Nucleic Acid Amp [...] Emergency Use Authorization. ID Date Data Source [id number] 02/28/2021 10:15:00 PM EDT [facility] Name Value Range Interpretation Code Description Data [facility] rce(s) Supporting Document(s) PCP VISTA NEG NEGATIVE [facility] MINIMUM LEVEL OF DETECTION IS 25 ng/ml BENZODIAZEPINES NEG NEGATIVE [facility] al MINIMUM LEVEL OF DETECTION IS 200 ng/ml COCAINE VISTA NEG NEGATIVE [facility] MINIMUM LEVEL OF DETECTION IS 300 ng/ml AMPHETAMINES NEG NEGATIVE [facility] al MINIMUM LEVEL OF DETECTION IS 1000 ng/ml BARBITURATES NEG NEGATIVE [facility] al CUTOFF CONCENTRATION IS 200 ng/ml CANNABINOIDS NEG NEGATIVE [facility] al CUTOFF CONCENTRATION IS 50 ng/ml METHADONE VISTA NEG NEGATIVE [facility] al MINIMUM LEVEL OF DETECTION IS 300 ng/ml OPIATE VISTA NEG NEGATIVE [facility] MINIMUM DETECTION LEVEL IS 300 ng/ml ID Date Data Source [id number] 02/28/2021 09:59:00 PM EDT [facility] Name Value Range Interpretation Code Description Data Stephanie rce(s) Supporting Document(s) URINE COLOR Yellow [facility] UAPR Clear [facility] UGLU Negative NEGATIVE [facility] URINE BILIRUBIN Negative [facility] UKET Trace NEGATIVE [facility] USG 1.028 1.010-1.025 H [facility] UBLO Negative NEGATIVE [facility] UpH 6.0 5.0-8.0 [facility] UPRO Negative Negative [facility] UUB 1.0 mg/dL 0.2-1.0 [facility] UNIT Negative Negative [facility] ULEU Negative Negative [facility] ID Date Data Source [id number] 02/28/2021 09:59:00 PM EDT [facility] Name Value Range Interpretation Code Description Data Stephanie rce(s) Supporting Document(s) HCG QUAL URINE Negative [facility] ID Date Data Source [id number] 02/28/2021 10:15:00 PM EDT [facility] [place] Name Value Range Interpretation Code Description Data Stephanie rce(s) Supporting Document(s) SALICYLATE < 1.7 mg/dL 0.0-20.0 [facility] ID Date Data Source [id number] 02/28/2021 10:15:00 PM EDT [facility] Name Value Range Interpretation Code Description Data Stephanie rce(s) Supporting Document(s) ACETAMINOPHEN < 2.0 ug/mL 0-30 [facility] ID Date Data Source [id number] 02/28/2021 10:15:00 PM EDT [facility] Name Value Range Interpretation Code Description Data Stephanie rce(s) Supporting Document(s) ETOH NONE DETECTED [facility] NONE DETECTED ID Date Data Source [id number] 02/28/2021 10:15:00 PM EDT [facility] Name Value Range Interpretation Code Description Data Stephanie rce(s) Supporting Document(s) GLU 98 mg/dL 70-110 [facility] Patients taking Sulfasalazine may have f alsely depressedGlucose levels. Patients taking Sulfapyridine may havefalsely elevated Glucose levels. Patients should be drawnfor Glucose before the initial administration of eitherdrug. BUN 14 mg/dL 7-23 [facility] CRE 0.645 mg/dL 0.500-1.300 [facility] GFR > 60 mL/min [facility] CHLORIDE 109 mmol/L 99-110 [facility] NA 140 mmol/L 136-147 [facility] POTASSIUM 3.6 mmol/L 3.5-5.1 [facility] TCO2 22 mmol/L 20-33 [facility] ANION GAP 12.6 10.0-20.0 [facility] CA 8.6 mg/dL 8.3-10.7 [facility] ALKALINE PHOS 114 U/L 45-117 [facility] TP 7.3 g/dL 6.0-7.8 [facility] ALB 3.6 g/dL 3.5-5.0 [facility] ESRD Dialysis patient Albumin reference range: 2.9-4.4 g/dL GL 3.7 g/dL 2.3-3.5 [facility] A/G 1.0 1.0-2.5 [facility] T. BILIRUBIN 0.3 mg/dL 0.1-1.1 [facility] The [employer] [place] Total Bilirubin is n ot recommended forpatients undergoing treatment with eltrombopag (Promacta)due to the potential for falsely elevated results. ALTI 44 U/L 6-54 [facility] Patients taking Sulfasalazine and/or Sul fapyridine may havefalsely depressed ALT levels. Patients should be drawn forALT before the initial administration of either drug. AST 18 U/L 6-38 [facility] Patients taking Sulfasalazine and/or Sul fapyridine may havefalsely depressed AST levels. Patients should be drawn forAST before the initial administration of either drug. ID Date Data Source [id number] 02/28/2021 10:03:00 PM EDT [facility] [place] Name Value Range Interpretation Code Description Data Stephanie rce(s) Supporting Document(s) WBC 10.31 x10E3/uL 4.0-10.5 [facility] RBC 4.19 x10E6/uL 4.20-5.40 L [facility] Hemoglobin 12.3 g/dL 12.0-16.0 [facility] Hematocrit 37.1 % 37.0-47.0 [facility] MCV 88.5 fL 81.0-99.0 [facility] MCH 29.4 pg 27.0-31.0 N [facility] MCHC 33.2 g/dL 32.7-35.6 [facility] RDW 12.2 % 11.5-14.0 N [facility] Platelet count 274 x10E3/uL 150-450 N [facility] ital MPV 9.7 fl 6.9-9.5 H [facility] Neutrophils 60.8 % 34-64 [facility] Lymphocytes 29.1 % 25-45 [facility] Monocytes 8.0 % 1.7-10.6 [facility] Eosinophils 1.4 % 0.4-7.0 [facility] Basophils 0.2 % 0.1-2.0 [facility] Imm. Gran. 0.5 % 0.1-2.0 [facility] Abs. Neutro. 6.28 x10E3/uL 1.2-7.6 [facility] Abs. Lymph. 3.00 x10E3/uL 1.0-3.5 [facility] Abs. [place]. 0.82 x10E3/uL 0.1-1.0 [facility] Abs. Eosin. 0.14 x10E3/uL 0.1-0.7 [facility] Abs. Baso. 0.02 x10E3/uL 0.0-0.1 [facility] Abs. Imm. Gran. 0.05 x10E3/uL 0.0-0.1 N [facility] spital ANRBC% 0 % 0 [facility] ID Date Data Source [id number] 03/01/2021 12:39:00 PM EDT [facility] Physician DocumentationClaxton-Naveen Hinkle edical CenterName: Yareli DuvallAge: 20 yrsSex: FemaleDOB: 2000MRN: [id number] Date: 02/28/2021Time: 21:08Account#: [id number] 3Priash SMITH: NONE, - Per PatientED Physician Nils ArguetaDiszach Summary:03/01/21 11:57Discharge OrderedLocation: Home Self Care afProblem: an ongoing problem afSymptoms: are unchanged afCondition: Stable afDiagnosis- Bipolar disorder, unspecified afFollowup: af- With: Private Physician- When: 1 week- Reason: Recheck today's complaintsDischarge Instructions:- BIPOLAR DISORDER af- Discharge Summary Sheet ej74Exhha:- Medication Reconciliation af- Medication Reconciliation Form - 2nd Copy afHPI:02/2021:26 This 20 yrs old White Female presents to ER via Police with qm6vfrdphbzkz of Psych Problem.21:26 Associated signs and symptoms: Pertinent negatives: abdominal pain, of5jxtjx pain, fever, headache, nausea, shortness of breath, [...] Temp 97.8; Pulse Ox 97% ; Weight xw0795.95 kg; Height 5 ft. 6 in. (167.64 cm);22:59 BP 120 / 64; Pulse 75; Resp 16; Pulse Ox 97% ; jw:37 ml:15 Body Mass Index 38.41 (107.95 kg, 167.64 cm) jw512:37 refused vitals ml4MDM:02/2021:11 Patient medically screened. :53 Data reviewed: vital signs, nurses notes, lab test result(s). ED fn4ufytkg: Patient remained stable in the ER. Patient here for mentalhealth evaluation as above. Case is endorsed to Dr. Rica oliver of shift pending PSA evaluation disposition. Patient ismedically clear and has been cooperative..02/2021:18 Order name: Acetaminophen Level; Complete Time: 22:15 :18 Order name: CBC with diff; Complete Time: 22:15 :18 Order name: CMP; Complete Time: 22:15 :18 Order name: ETOH; Complete Time: 22:15 :18 Order name: Glucose jw:18 Order name: Salicylate Level; Complete Time: 22:15 :18 Order name: Triage - Drug Screen; [...] name: Medically Cleared for Eval by- Psychosocial, Theater Technician wilfredo(YE); Complete Time: ::17 Order name: EKG in Patient's Room; Complete Time: :17 Order name: EKG.; Complete Time: fbgDispensed Medications:02/2023:22 Drug: Latuda 80 mg Route: [...] mg [acetaminophen 325 mg tablet (2 tabs)] ps7Stmix: PO;09:45 Drug: Propranolol 10 mg [propranolol 10 mg tablet (1 tabs)] Route: PO;fbg09:46 Drug: sertraline 150 mg [sertraline 50 mg tablet (3 tabs)] Route: PO; fbg09:46 Drug: Topiramate 75 mg [topiramate 25 mg tablet (3 tabs)] Route: PO; fbgSignatures:Dispatcher MedHost Vincenzo Acosta RN RN fbgFedorowiAnshul bull MD MD afHowland, Todd, MD MD rq6VmjzyFortunato humphrey RN RN sg9HdnzafsbGeno santana RN RN sc3 Name Value Range Interpretation Code Description Data Stephanie rce(s) Supporting Document(s) ID Date Data Source [id number] 03/01/2021 12:39:00 PM EDT [facility] Nurse's NotesClivelisseHarlem [facility] terName: Yareli Domingo: 20 yrsSex: FemaleDOB: 2000MRN: [id number] Date: 02/28/2021Time: 21:08Account#: [id number] 3Polga MD: NONE, - Per PatientDiagnosis: Bipolar [...] of amount of people live, such as [facility] [facility], [facility], [facility], etc? no. Have you traveled to a location with widespreador ongoing COVID-19 community spread or [facility]? no Haveyou traveled internationally or had contact with someone that hastraveled and has been ill in the past 3 weeks? no Have you receivedthe COVID vaccine? Yes. Communicable Disease Screen: Negative forfever>/= 100 degrees Fahrenheit. Communicable disease screen isnegative. (-) rash or unusual skin lesion (-) travel/contact withtraveler (-) respiratory symptoms. Communication Speaks Hungarian? Yes,is preferred language.21:09 Acuity: Triage 2 jw521:09 Method Of Arrival: Police jw521:11 Acuity Assignment: Triage 2 tw6Kglivu Assessment:21:14 General: Appears in no apparent distress, Behavior is cooperative. is4Gocfvn Screening: (1)Signs/symptoms infection Sepsis is notsuspected. Pain: [...] threats or abuse. Denies injuries from another. io1Swgwjulgwtf screening: No deficits noted. Offer of HIV testing:patient was previously offered screening. Fall Risk None identified.Assessment:22:58 Reassessment: Patient appears in no apparent distress at this time. jw508/2112:36 Reassessment: No changes from previously documented assessment. ty2Cunvdshlqwcq:02/2022:21 SAFE Act Report Not Completed. Intervention: Observation Level 3. nhReferral Information: Evaluation referral is generated by a policeagency: [employer]. The patient was referred for evaluation because suicidalideations.02/2104:34 Mental health consult is initiated at 04:34. nh04:53 Subjective: The patients chief complaint is Pt reports to the ED by caydenGPGonzalo with suicidal ideations with a plan to jump into traffic. Ptstates that she has continuously felt suicidal for as long as she canremember. Pt denies HI. Pt has an unknown amount of suicide attempts.Pt has a history of self harm but states that she has not done sorecently. Pt states that she was inpatient at [facility] from02/21/21-02/25/21. Pt states that [facility] and she has anappointment next week but [...] guns. Pt statesthat she has court [place]. Pt does not presentwith delusional thoughts. Delusions are denied, Hallucinations aredenied. Patient's mood is depressed, Having thoughts of suicide. Planfor suicide is jumping into trffic. Patient reports history ofanxiety, Bipolar Disorder, Depression, self - mutilation, suicideattempt: many Mental Health Admissions: 02/21-02/25/2021 [facility]: Psychiatrist / Agency:[facility]. Living Environment: Family /Home Support: poor The [...] informed of patient's status at 11:53, ED BUuq16zanvyxsg of patients status at 11:53. Disposition: Medically clearedfor disposition by Dr Argueta. Psychiatric Consult is performed byphone with Dr Macias The patient has a safe destination which is Ptwill be discharged home per Dr. Macias. Pt can contract for safety anddenies SI/HI. Pt will follow up with [facility]. Pt provided contactinformation for PSA and [employer]. Pt will come to the ED if problemscontinue or worsen. DSM-V DX [place] I diagnosis: Bipolar D/O, depressedAxis II diagnosis: Deferred [place] III diagnosis: None. [place] IVdiagnosis: poor impulse control. The patient is not a service memberor dependent. [place] Suicide Severity Rating Scale:Suicidal Ideation Rating 0; Intensity of Ideations Rating 0; SuicidalBehavior Rating 0.Psych:02/2021:18 Subjective: Patient's mood is irritable, Delusions are denied, eb2Itrjnrhlozxdqg are denied Having thoughts of suicide. Plan [...] Temp 97.8; Pulse Ox 97% ; Weight hf4198.95 kg; Height 5 ft. 6 in. (167.64 [...] No Physician assisted procedures completed. jw523:21 Geno Meléndez RN is Primary Nurse. sc308/2101:00 Sitter at [...] mg [acetaminophen 325 mg tablet (2 tabs)] ox9Vmdck: PO;09:45 Drug: Propranolol 10 mg [propranolol 10 [...] no functional deficits.12:39 Patient left the ED. ir2Dzrpuipmku:Vincenzo Luis, RN RN fbgBrown, QUIN Bucio Arthur, MD MD afKendall, MD SARAH Ramirez wj5Bbjsq, Fortunato, RN RN ua7Dyxz, Ina Suggs, Marianna Merrill, Danae, RN RN xd6Bnvfywqz, Geno, RN RN sc3 Name Value Range Interpretation Code Description Data [facility] Supporting Document(s) ID Date Data Source [id number] 02/26/2021 08:59:13 AM EDT [facility] Name Value Range Interpretation Code Description Data [facility] Supporting Document(s) Discharge Summary [facility] NHCNRv1lOaIKXeXz12/IWIfrWPDyw5QgZTogPAq3GDxbFBPpC5ImQWG6iK9aHMM8VUkNUeVhYaCmUCQ1 [facility] [file] ICAgICAgICAgICAgICAgICAgICAgICAgICAgICAgIC AgICAgICAgICAgICAgICAgICAgICAgICAgICAgICAgDQogICAgICAgICAgICAgICAgICAgICAgICAgIC AgICAgICAgICAgICAgICAgICAgICAgICAgICAgICAgICAgICAgICAgICAgICAgICAgICAgICAgICAgIC AgICAgICAgICAgICAgDQogICAgICAgICAgICAgICAg ICAgICAgICAgICAgICAgICAgICAgICAgICAgICAgICAgICAgICAgICAgICAgICAgICAgICAgICAgICAg ICAgICAgICAgICAgICAgICAgICAgICAgDQogICAgICAgICAgICAgICAgICAgICAgICAgICAgICAgICAg ICAgICAgICAgICAgICAgICAgICAgICAgICAgICAgIC AgICAgICAgICAgICAgICAgICAgICAgICAgICAgICAgICAgDQogICAgICAgICAgICAgICAgICAgICAgIC AgICAgICAgICAgICAgICAgICAgICAgICAgICAgICAgICAgICAgICAgICAgICAgICAgICAgICAgICAgIC AgICAgICAgICAgICAgICAgDQogICAgICAgICAgICAg ICAgICAgICAgICAgICAgICAgICAgICAgICAgICAgICAgICAgICAgICAgICAgICAgICAgICAgICAgICAg ICAgICAgICAgICAgICAgICAgICAgICAgICAgDQogICAgICAgICAgICAgICAgICAgICAgICAgICAgICAg ICAgICAgICAgICAgICAgICAgICAgICAgICAgICAgIC AgICAgICAgICAgICAgICAgICAgICAgICAgICAgICAgICAgICAgDQogICAgICAgICAgICAgICAgICAgIC AgICAgICAgICAgICAgICAgICAgICAgICAgICAgICAgICAgICAgICAgICAgICAgICAgICAgICAgICAgIC AgICAgICAgICAgICAgICAgICAgDQogICAgICAgICAg ICAgICAgICAgICAgICAgICAgICAgICAgICAgICAgICAgICAgICAgICAgICAgICAgICAgICAgICAgICAg ICAgICAgICAgICAgICAgICAgICAgICAgICAgICAgDQogICAgICAgICAgICAgICAgICAgICAgICAgICAg ICAgICAgICAgICAgICAgICAgICAgICAgICAgICAgIC DhCHAwGCRmLXFfBHWiLGQdZWEgXANnVJVcGDTlHTSnBYKtUTNjJBLuMEi3G3xnMRBcANZfQG3pPMs3Aq 8+TSvHIxAnKGS7tsIwoY2JKA2gy6LsSHtuDHJbh1FvDFs6IU2RONZdLLxyAB2LMSeahp6HTNWnFPYtpO XSi4rwGmSgFSY8WSAyPiafOP5IOKNjK7wnvuMkIZNd YQYZRWsaHUWLHStwHWLYKELzIBPwQqBrZdScWPBvIGPkVFAIIDT4OSBsXmOiIHYeGYCfGdGlBYIFUOIa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 in factthe staff stated to us that she has been in the hospital more than she has beenat the residence. Staff from [facility] informed Alexa stearns that Yareli spendsmost [...] the hospital. This information obtainedfrom staff at [facility] was reiterated to Marilu and she agreed with thisstatement. She agreed that she would go back to [facility] and try to engage withstaff and [...] and ready to go back to the [facility] environment.Plan:Patient will be discharged back to her residential setting of [facility]. TLS hasbeen made aware of this [...] 02/19 0241Creatinine (0.500 - 1.300 mg/dL) 0.698 / 0241Estimated GFR/1.73 m2 (mL/min) > 60 02/19 0241Glucose (70 - 110 mg/dL) 108 08/ 0241Calcium (8.3 - 10.7 mg/dL) 8.4 02/19 [...] 02/19 0241HematologyWBC (4.0 - 10.5 x10E3/uL) 8.83 08/ [...] 08/ 0241MPV (6.9 - 9.5 fl) 9.3 08/ 0241Immature Gran % (Auto) (0.1 - 2.0 %) 0.3 08/ 0241Neut % (Auto) (34 - 64 %) 58.2 08/ 0241Lymph % (Auto) (25 - 45 %) 32.5 08/ 0241Mono % (Auto) (1.7 - 10.6 %) 6.9 08/ 0241Eos % (Auto) (0.4 - 7.0 %) 1.9 08/ 0241Baso % (Auto) (0.1 - 2.0 %) 0.2 08/ 0241Abs Immat Gran (auto) (0.0 - 0.1 x10E3/uL) 0.03 08/ 0241Absolute Neuts (auto) (1.2 - 7.6 x10E3/uL) 5.13 08/ 0241Absolute Lymphs (auto) (1.0 - 3.5 x10E3/uL) 2.87 08/ 0241Absolute Monos (auto) (0.1 - 1.0 x10E3/uL) 0.61 08/ 0241Absolute Eos (auto) (0.1 - 0.7 x10E3/uL) 0.17 08/ 0241Absolute Basos (auto) (0.0 - 0.1 x10E3/uL) 0.02 02/19 024Nucleated RBC % (auto) (0 %) 0 02/19 241ToxicologySalicylates (0.0 - 20.0 mg/dL) < 1.7 02/19 241Opiates Screen (NEGATIVE) NEG 02/19 0455Methadone Screen (NEGATIVE) NEG 02/19 0455Acetaminophen (0 - 30 ug/mL) < 2.0 02/19 024arbiturate Screen (NEGATIVE) NEG 02/19 0455Phencyclidine Screen (NEGATIVE) NEG 02/19 0455Amphetamines Screen (NEGATIVE) NEG 02/19 0455Benzodiazepines (NEGATIVE) NEG 02/19 0455Cocaine Screen (NEGATIVE) NEG 02/19 0455Cannabinoids (NEGATIVE) NEG 02/19 455Ethyl Alcohol (NONE DETECTED g/dL) 02/19 241UrinesUrine Color Yellow 02/19 455Urine Appearance Turbid 02/19 455Urine pH (5.0 - 8.0) 5.5 02/19 455Ur Specific Randle (1.010 - 1.025) 1.030 H 02/19 455Urine Protein (Negative) Negative 02/19 455Urine Ketones (NEGATIVE) Negative 02/19 455Urine Blood (NEGATIVE) Non-hemolyzed Trace 02/19 455Urine Nitrite (Negative) Negative 02/19 455Ur Bilirubin Confirm (NEGATIVE) Negative 02/19 455Urine Urobilinogen (0.2 - 1.0 mg/dL) 1.0 02/19 455Urine Leukocytes (Negative) Negative 02/19 045Urine Glucose (NEGATIVE) Negative 02/19 455Urine HCG, Qual (Negative) Negative 02/19ssessment/PlanDiagnosis1. Bipolar disorderCoordination of care provided with nursing staff, treatment team, social work,physician'sDATE SIGNED: 02/19/21 Electronically SignedTIME SIGNED: 1157 DYLAN RIBEIRO Name Value Range Interpretation Code Description Data Stephanie rce(s) Supporting Document(s) ID Date Data Source [id number] 02/19/2021 05:49:00 AM EDT [facility] Name Value Range Interpretation Code Description Data Stephanie rce(s) Supporting Document(s) PCP VISTA NEG NEGATIVE [facility] MINIMUM LEVEL OF DETECTION IS 25 ng/ml BENZODIAZEPINES NEG NEGATIVE [facility] al MINIMUM LEVEL OF DETECTION IS 200 ng/ml COCAINE VISTA NEG NEGATIVE [facility] MINIMUM LEVEL OF DETECTION IS 300 ng/ml AMPHETAMINES NEG NEGATIVE [facility] al MINIMUM LEVEL OF DETECTION IS 1000 ng/ml BARBITURATES [facility]GAT[facility] CUTOFF CONCENTRATION IS 200 ng/ml CANNABINOIDS NEG NEGATIVE [facility] al CUTOFF CONCENTRATION IS 50 ng/ml METHADONE VISTA NEG NEGATIVE [facility] al MINIMUM LEVEL OF DETECTION IS 300 ng/ml OPIATE VISTA NEG NEGATIVE [facility] MINIMUM DETECTION LEVEL IS 300 ng/ml ID Date Data Source [id number] 02/19/2021 05:07:00 AM EDT [facility] [place] Name Value Range Interpretation Code Description Data Stephanie rce(s) Supporting Document(s) HCG QUAL URINE Negative Negative [facility] ID Date Data Source [id number] 02/19/2021 05:07:00 AM EDT [facility] [place] Name Value Range Interpretation Code Description Data Stephanie rce(s) Supporting Document(s) URINE COLOR Yellow [facility] UAPR Turbid [facility] UGLU Negative NEGATIVE [facility] URINE BILIRUBIN Negative NEGATIVE [facility] al UKET Negative NEGATIVE [facility] USG 1.030 1.010-1.025 [facility] UBLO Non-hemolyzed Trace NEGATIVE [facility] spital UpH 5.5 5.0-8.0 [facility] UPRO Negative Negative [facility] UUB 1.0 mg/dL 0.2-1.0 [facility] UNIT Negative Negative [facility] ULEU Negative Negative [facility] ID Date Data Source [id number] 02/19/2021 03:08:00 AM EDT [facility] Name Value Range Interpretation Code Description Data Stephanie rce(s) Supporting Document(s) SALICYLATE < 1.7 mg/dL 0.0-20.0 [facility] ID Date Data Source [id number] 02/19/2021 03:08:00 AM EDT [facility] Name Value Range Interpretation Code Description Data Stephanie rce(s) Supporting Document(s) ACETAMINOPHEN < 2.0 ug/mL 0-30 [facility] ID Date Data Source [id number] 02/19/2021 03:08:00 AM EDT [facility] Name Value Range Interpretation Code Description Data Stephanie rce(s) Supporting Document(s) ETOH NONE DETECTED [facility] NONE DETECTED ID Date Data Source [id number] 02/19/2021 03:08:00 AM EDT [facility] Name Value Range Interpretation Code Description Data Stephanie rce(s) Supporting Document(s) GLU 108 mg/dL 70-110 [facility] Patients taking Sulfasalazine may have f alsely depressedGlucose levels. Patients taking Sulfapyridine may havefalsely elevated Glucose levels. Patients should be drawnfor Glucose before the initial administration of eitherdrug. BUN 18 mg/dL 7-23 [facility] CRE 0.698 mg/dL 0.500-1.300 [facility] GFR > 60 mL/min [facility] CHLORIDE 110 mmol/L 99-110 [facility] NA 142 mmol/L 136-147 [facility] POTASSIUM 4.1 mmol/L 3.5-5.1 [facility] TCO2 24 mmol/L 20-33 [facility] ANION GAP 12.1 10.0-20.0 [facility] CA 8.4 mg/dL 8.3-10.7 [facility] ALKALINE PHOS 118 U/L 45-117 [facility] TP 7.4 g/dL 6.0-7.8 [facility] ALB 3.6 g/dL 3.5-5.0 [facility] ESRD Dialysis patient Albumin reference range: 2.9-4.4 g/dL GL 3.8 g/dL 2.3-3.5 [facility] A/G 0.9 1.0-2.5 [facility] T. BILIRUBIN 0.3 mg/dL 0.1-1.1 [facility] The [employer] [place] Total Bilirubin is n ot recommended forpatients undergoing treatment with eltrombopag (Promacta)due to the potential for falsely elevated results. ALTI 41 U/L 6-54 [facility] Patients taking Sulfasalazine and/or Sul fapyridine may havefalsely depressed ALT levels. Patients should be drawn forALT before the initial administration of either drug. AST 19 U/L 6-38 [facility] Patients taking Sulfasalazine and/or Sul fapyridine may havefalsely depressed AST levels. Patients should be drawn forAST before the initial administration of either drug. ID Date Data Source [id number] 02/19/2021 02:51:00 AM EDT [facility] Name Value Range Interpretation Code Description Data Stephanie rce(s) Supporting Document(s) WBC 8.83 x10E3/uL 4.0-10.5 [facility] RBC 4.16 x10E6/uL 4.20-5.40 [facility] Hemoglobin 12.4 g/dL 12.0-16.0 [facility] Hematocrit 37.6 % 37.0-47.0 [facility] MCV 90.4 fL 81.0-99.0 [facility] MCH 29.8 pg 27.0-31.0 [facility] MCHC 33.0 g/dL 32.7-35.6 [facility] RDW 12.2 % 11.5-14.0 [facility] Platelet count 227 x10E3/uL 150-450 [facility] ital MPV 9.3 fl 6.9-9.5 [facility] Neutrophils 58.2 % 34-64 [facility] Lymphocytes 32.5 % 25-45 [facility] Monocytes 6.9 % 1.7-10.6 [facility] Eosinophils 1.9 % 0.4-7.0 [facility] Basophils 0.2 % 0.1-2.0 [facility] Imm. Gran. 0.3 % 0.1-2.0 [facility] Abs. Neutro. 5.13 x10E3/uL 1.2-7.6 [facility] Abs. Lymph. 2.87 x10E3/uL 1.0-3.5 [facility] Abs. [place]. 0.61 x10E3/uL 0.1-1.0 [facility] Abs. Eosin. 0.17 x10E3/uL 0.1-0.7 [facility] Abs. Baso. 0.02 x10E3/uL 0.0-0.1 [facility] Abs. Imm. Gran. 0.03 x10E3/uL 0.0-0.1 [facility] ANRBC% 0 % 0 [facility] ID Date Data Source [id number] 02/19/2021 10:15:00 AM EDT [facility] Physician DocumentationClaxton-Naveen Hinkle edical CenterName: Yareli AdamelAge: 20 yrsSex: FemaleDOB: 2000MRN: [id number] Date: 02/19/2021Time: 02:28Account#: [id number] MD: NONE, - Per PatientED Physician Richie العليposition Summary:02/19/21 09:20Discharge OrderedLocation: Home Self Care seProblem: an ongoing problem seSymptoms: are unchanged seCondition: Stable seDiagnosis- Bipolar disorder, unspecified seFollowup: se- With: Private Physician- When: as instructed- Reason: Recheck today's complaints, Continuance of careDischarge Instructions:- BIPOLAR DISORDER se- Discharge Summary Sheet uw34Tbotr:- Medication Reconciliation se- Medication Reconciliation Form - 2nd Copy seHPI:02/1104:51 This 20 yrs old White Female presents to ER via Police with mw8ifkpigpunf of Psych Problem.04:51 The patient presents to the emergency department with PT. BROUGHT TO [facility] BY [facility] FOR MHE. PT. HAS BEEN DEPRESSED & HAS SI WITH PLAN TO SELFHARM OR DROWN SELF, SHE HAS SMALL SUPERFICIAL SKIN BURN LT. 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 Onset: The symptoms/episode began/occurred just priorto arrival. Past psychiatric history: Prior diagnosis: bipolardisorder. Associated signs and symptoms: The patient has no apparentassociated signs or symptoms. 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 ibuprofen 400 [...] Psych: Positive for depression, homicidal ideation, suicidal dj4dzjwvmyd, Negative for drug dependence, alcohol dependence, auditoryhallucinations, [...] Temp 97.8; Pulse Ox 98% ; Weight wt5596.33 kg; Height 5 ft. 6 in. (167.64 cm);09:45 BP 131 / 84; Pulse 72; Resp 20; Temp 97.9; Pulse Ox 97% ; Pain 0/10; ef102:34 Body Mass Index 37.12 (104.33 kg, 167.64 cm) jw5MDM:02/1004:54 Data reviewed: vital signs, nurses notes, lab test result(s). na108/1103:30 Patient medically screened. na108/1102:37 Order name: Acetaminophen Level; Complete Time: 04:50 jw5082:37 Order name: CBC with diff; Complete Time: 04:50 :37 Order name: CMP; Complete Time: 04:50 2:37 Order name: ETOH; Complete Time: 04:50 jw2:37 Order name: Glucose jw5082:37 Order name: Salicylate Level; Complete Time: 04:50 jw5082:37 Order name: Triage - Drug Screen; Complete Time: 09:20 :20 Interpretation: Within normal limits. :37 Order name: UA; Complete Time: 09::21 Interpretation: Normal except: USG 1.030. :37 Order name: Urine HCG Qualitative; Complete Time: 09::21 Interpretation: Within normal limits. :37 Order name: Diet - Mental Health Tray (call dietary); Complete Time: jw507::37 Order name: Belongings List; Complete Time: :45 :37 Order name: Document Weight and Height for BMI; Complete Time: ::37 Order name: Mental Health Evaluation; Complete Time: :37 Order name: Mental Health Level 3; Complete Time: 07::37 Order name: VS q shift; Complete Time: ::50 Order name: Medically Cleared for Eval by-Psychosocial, Theater Technician na1(.PSA); Complete Time: 05:05Dispensed Medications:No medications were administeredSignatures:Dispatcher [employer] Kylie Fishman MD MD seAl-Hussein, Nabeel, MD MD na1White, Jason, RN RN hr6TimnwsccAmi arthur RN RN mc0Eqathqdcdct: (The following items were deleted from the chart)02:33 02:31 Home Meds: loratadine 10 mg oral TbDi once daily; jw5 jw5 Name Value Range Interpretation Code Description Data Stephanie rce(s) Supporting Document(s) ID Date Data Source [id number] 02/19/2021 10:15:00 AM EDT [facility] Nurse's NotesClaxton-Naveen Medical Tootie terName: Yareli DuvallAge: 20 yrsSex: FemaleDOB: 2000MRN: [id number] Date: 02/19/2021Time: 02: 2Polga MD: NONE, - Per PatientDiagnosis: Bipolar disorder, unspecifiedPresentation:02/1102:29 Presenting complaint: Patient brought in by [facility] officer Lilly emmanuelfor mental health evaluation Patient reports feeling suicidal andhomicidal patient reports plan for suicide is to self harm or todrown self and homicidal towards mother. International Travel FeverNo. Coronavirus Screening: Have you been diagnosed with COVID-19 inthe past 30 days? no Are you currently on quarantine by [facility]? no Flu-like symptoms reported in the last 14 days: no. Haveyou had close contact with confirmed or suspected COVID-19 case? noDo you live in a setting where a large of amount of people live, suchas [facility], [facility] care, [facility], etc? no. Have you traveled to [facility] with widespread or ongoing COVID-19 community spread [facility]? no Have you traveled internationally or hadcontact with someone that has traveled and has been ill in the past 3weeks? no Have you received the COVID vaccine? Yes. CommunicableDisease Screen: Negative for fever>/= 100 degrees Fahrenheit.Communicable disease screen is negative. (-) rash or unusual skinlesion. Communication Speaks Hungarian? Yes, is preferred language.02:29 Acuity: Triage 2 jw502:29 Method Of Arrival: Police jw502:31 Acuity Assignment: Triage 2 sg8Uxmsal Assessment:02:33 General: Appears in no apparent distress, Behavior is cooperative. io7Hnibys Screening: (1)Signs/symptoms infection Sepsis is notsuspected. Pain: [...] Yes. Exhibitingdepressed mood. Positive screen for depression, provider aware ofpositive screening. Education provided. Over [...] aware ofpositive screen, suicide precautions implemented. 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 ibuprofen 400 [...] threats or abuse. Denies injuries from another. ej5Szlsegdyqwe screening: No deficits noted. Offer of HIV testing:patient was previously offered screening. Fall Risk None identified.Assessment:07:47 Derm: abrasion noted to left forearm; bacitracin applied. General: ej3Mejgapi in no apparent distress, obese, Behavior is cooperative.Neuro: Level of Consciousness is awake, alert, obeys commands,Oriented to person, place, time. Respiratory: Airway is patentRespiratory effort is even, unlabored.Psychosocial:05:05 SAFE Act Report Not Completed. Intervention: Observation Level 3. [facility] health consult is initiated at 05:00. Referral [...] two daysago by burning herself with a supervisor of operations. Pt has an extensive inpatientmental health history, the last time being admitted was 01/02/21 afteran overdose. [facility] [...] informed of patient's status at 09:09, ED OKif63vgtcigmk of patients status at 09:09. Disposition: Medically clearedfor disposition by Dr Levy. Psychiatric Consult is performed byphone with Dr Dylan Ribeiro NP The patient has a safe destinationwhich is Pt will be discharged home to [facility] per Dylan Ribeiro NP. Ptcan contract for safety and denies SI/HI. Pt will follow up with [facility].Pt provided contact information for [facility] and [employer]. Pt will come tothe ED if problems continue or worsen. DSM-V DX [place] I diagnosis:Bipolar D/O, mixed [place] II diagnosis: Deferred [place] III diagnosis:None. [place] IV diagnosis: poor impulse control. Abuse/DV Screen: Thepatient / caregiver reports he/she is not in a situation that causesfear, pain or injury. The patient is not a tire servicer or militarydependent. [place] Suicide Severity Rating Scale: Suicidal IdeationRating 0; Intensity of Ideations Rating 0; Suicidal Behavior Rating 0.Psych:02:35 Subjective: Patient's mood is sad, Delusions are denied, yn9Yitcrepskgsuvb are denied Having thoughts of suicide. Plan [...] Temp 97.8; Pulse Ox 98% ; Weight ka1110.33 kg; Height 5 ft. 6 in. (167.64 [...] Physician. se09:45 No Physician assisted procedures completed. se1Scjbekibldjo Medications:No medications were administeredOutcome:09:20 Discharge ordered by . se09:45 Disposition: Discharged to home ef109:45 Condition: stable, Provider notified of abnormal vital signs.09:45 Discharge instructions given to patient, Instructed on dischargeinstructions, follow up and referral plans. Demonstratedunderstanding of instructions.09:45 Discharge Assessment: Patient verbalized understanding of dispositioninstructions. Patient has no functional deficits.10:15 Patient left the ED. ik0Wsrxgvocbd:Kylie العلي MD MD seAl-Hussein, Nabeel, MD MD na1White, Jason, RN RN mb8QnvwjwdoAmi arthur RN RN ef1Ina Jack Nicole nhCorrections: (The following items were deleted from the chart)02:33 02:31 Home Meds: loratadine 10 mg oral TbDi once daily; jw5 jw505:15 05:06 Subjective: The patients chief complaint is Pt reports to [facility] with suicidal ideations with a plan to [...] days ago by burning herself with a supervisor of operations. Pt has anextensive inpatient mental health history. Pt goes to [facility] for [facility] where she sees Sadaf. Pt doesnot know when her next appointment is. Pt . [place] Name Value Range Interpretation Code Description Data Stephanie rce(s) Supporting Document(s) ID Date Data Source [id number] 02/17/2021 04:09:00 AM EDT [facility] Name Value Range Interpretation Code Description Data Stephanie rce(s) Supporting Document(s) SALICYLATE < 1.7 mg/dL 0.0-20.0 [facility] ID Date Data Source [id number] 02/17/2021 04:09:00 AM EDT [facility] Name Value Range Interpretation Code Description Data Stephanie rce(s) Supporting Document(s) ACETAMINOPHEN < 2.0 ug/mL 0-30 [facility] ID Date Data Source [id number] 02/17/2021 04:09:00 AM EDT [facility] Name Value Range Interpretation Code Description Data Stephanie rce(s) Supporting Document(s) ETOH NONE DETECTED [facility] NONE DETECTED ID Date Data Source [id number] 02/17/2021 04:09:00 AM EDT [facility] Name Value Range Interpretation Code Description Data Stephanie rce(s) Supporting Document(s) GLU 102 mg/dL 70-110 [facility] Patients taking Sulfasalazine may have f alsely depressedGlucose levels. Patients taking Sulfapyridine may havefalsely elevated Glucose levels. Patients should be drawnfor Glucose before the initial administration of eitherdrug. BUN 20 mg/dL 7-23 [facility] CRE 0.620 mg/dL 0.500-1.300 [facility] GFR > 60 mL/min [facility] CHLORIDE 111 mmol/L 99-110 H [facility] NA 142 mmol/L 136-147 [facility] POTASSIUM 3.5 mmol/L 3.5-5.1 [facility] TCO2 22 mmol/L 20-33 [facility] ANION GAP 12.5 10.0-20.0 [facility] CA 9.0 mg/dL 8.3-10.7 [facility] ALKALINE PHOS 112 U/L 45-117 [facility] TP 7.3 g/dL 6.0-7.8 [facility] ALB 3.8 g/dL 3.5-5.0 [facility] ESRD Dialysis patient Albumin reference range: 2.9-4.4 g/dL GL 3.5 g/dL 2.3-3.5 [facility] A/G 1.1 1.0-2.5 [facility] T. BILIRUBIN 0.3 mg/dL 0.1-1.1 [facility] [employer] [place] Total Bilirubin is n ot recommended forpatients undergoing treatment with eltrombopag (Promacta)due to the potential for falsely elevated results. ALTI 43 U/L 6-54 [facility] Patients taking Sulfasalazine and/or Sul fapyridine may havefalsely depressed ALT levels. Patients should be drawn forALT before the initial administration of either drug. AST 19 U/L 6-38 [facility] Patients taking Sulfasalazine and/or Sul fapyridine may havefalsely depressed AST levels. Patients should be drawn forAST before the initial administration of either drug. ID Date Data Source [id number] 02/17/2021 03:47:00 AM EDT [facility] Name Value Range Interpretation Code Description Data Stephanie rce(s) Supporting Document(s) WBC 9.27 x10E3/uL 4.0-10.5 [facility] RBC 4.10 x10E6/uL 4.20-5.40 [facility] Hemoglobin 12.1 g/dL 12.0-16.0 [facility] Hematocrit 36.7 % 37.0-47.0 [facility] MCV 89.5 fL 81.0-99.0 [facility] MCH 29.5 pg 27.0-31.0 [facility] MCHC 33.0 g/dL 32.7-35.6 [facility] RDW 12.4 % 11.5-14.0 [facility] Platelet count 224 x10E3/uL 150-450 [facility] ital MPV 9.3 fl 6.9-9.5 [facility] Neutrophils 61.0 % 34-64 [facility] Lymphocytes 30.1 % 25-45 [facility] Monocytes 6.7 % 1.7-10.6 [facility] Eosinophils 1.6 % 0.4-7.0 [facility] Basophils 0.2 % 0.1-2.0 [facility] Imm. Gran. 0.4 % 0.1-2.0 [facility] Abs. Neutro. 5.65 x10E3/uL 1.2-7.6 [facility] Abs. Lymph. 2.79 x10E3/uL 1.0-3.5 [facility] Abs. [place]. 0.62 x10E3/uL 0.1-1.0 [facility] Abs. Eosin. 0.15 x10E3/uL 0.1-0.7 [facility] Abs. Baso. 0.02 x10E3/uL 0.0-0.1 [facility] Abs. Imm. Gran. 0.04 x10E3/uL 0.0-0.1 [facility] spital ANRBC% 0 % 0 [facility] ID Date Data Source [id number] 02/17/2021 04:05:00 AM EDT [facility] Name Value Range Interpretation Code Description Data Stephanie rce(s) Supporting Document(s) PCP VISTA NEG NEGATIVE [facility] MINIMUM LEVEL OF DETECTION IS 25 ng/ml BENZODIAZEPINES NEG NEGATIVE [facility] al MINIMUM LEVEL OF DETECTION IS 200 ng/ml COCAINE VISTA NEG NEGATIVE [facility] MINIMUM LEVEL OF DETECTION IS 300 ng/ml AMPHETAMINES NEG NEGATIVE [facility] MINIMUM LEVEL OF DETECTION IS 1000 ng/ml BARBITURATES NEG NEGATIVE [facility] al CUTOFF CONCENTRATION IS 200 ng/ml CANNABINOIDS NEG NEGATIVE [facility] al CUTOFF CONCENTRATION IS 50 ng/ml METHADONE VISTA NEG NEGATIVE [facility] MINIMUM LEVEL OF DETECTION IS 300 ng/ml OPIATE VISTA NEG NEGATIVE [facility] MINIMUM DETECTION LEVEL IS 300 ng/ml ID Date Data Source [id number] 02/17/2021 03:48:00 AM EDT [facility] Name Value Range Interpretation Code Description Data Stephanie rce(s) Supporting Document(s) URINE COLOR Yellow [facility] UAPR Cloudy [facility] UGLU Negative NEGATIVE [facility] URINE BILIRUBIN Negative NEGATIVE [facility] al UKET Negative NEGATIVE [facility] USG 1.028 1.010-1.025 [facility] UBLO Negative NEGATIVE [facility] UpH 5.0 5.0-8.0 [facility] UPRO Negative Negative [facility] UUB 1.0 mg/dL 0.2-1.0 [facility] UNIT Negative Negative [facility] ULEU Negative Negative [facility] ID Date Data Source [id number] 02/17/2021 01:54:00 PM EDT [facility] [place] Physician DocumentationClLeticia Hinkle edical CenterName: Yareli DuvallAge: 20 yrsSex: FemaleDOB: 2000MRN: [id number] Date: 02/17/2021Time: 03:10Account#: [id number] 2Polga MD:ED Physician Colby Rylanisposition Summary:02/17/21 12:48Discharge OrderedLocation: Home Self Care afProblem: an ongoing problem afSymptoms: are unchanged afCondition: Stable afDiagnosis- Adjustment disorder, unspecified afFollowup: af- With: Private Physician- When: 1 week- Reason: Recheck today's complaintsDischarge Instructions:- ADJUSTMENT DISORDER af- Discharge Summary Sheet kfForms:- Medication Reconciliation af- Medication Reconciliation Form - 2nd Copy afHPI:02/903:44 This 20 yrs old White Female presents to ER via Private Vehicle with ca0ezorpgxyka of Psych Problem.03:44 Patient presents for mental health evaluation stating suicidal uc1jebffomx. Patient voluntarily called the police and asked [...] 50 mg Oral tab 1 tab prn . Latuda 80 mg oral tab 1 tab once daily- PMHx: ADHD; ANXIETY; BIPOLAR DISORDER; Depressive disorder; PsychHx; ptsd;- PSHx: None;- Immunization history: Flu vaccine is up to date.- Social history: Smoking status: Patient uses tobacco products,current every day smoker. ETOH status Denies use of ETOH.- Advance Directives:: None.ROS:03:44 Constitutional: Negative for chills, fever. Eyes: Negative for rv0gbbnsvregrv, vision loss. ENT: Negative for difficulty swallowing,difficulty [...] patient appears in no acute distress, alert, nk2qvzfn, comfortable, non- diaphoretic, non-toxic, well developed, obese.03:47 [...] Temp 97.6; Pulse Ox 98% on R/A; ce9Rkhuik 104.33 kg (R); Height 5 ft. 6 in. (167.64 cm) (R); Pain 0/10;10:26 BP 119 / 73; Pulse 74; Resp 17; Temp 98.0(O); Pulse Ox 97% on R/A; jlPain 0/10;13:53 BP 130 / 77; Pulse 76; Resp 16; Temp 97.8; Pulse Ox 96% on R/A; fbg03:16 Body Mass Index 37.12 (104.33 kg, 167.64 cm) da7Ibugbfk Coma Score:03:47 Eye Response: spontaneous(4). Verbal Response: oriented(5). Motor wf4Demgzvdm: obeys commands(6). Total: 15.MDM:03:12 Patient medically screened. dk203:50 Data reviewed: nurses notes. ED course: Patient seen and medically oo6euxwafg, is very talkative speaking to multiple members of staffmaking some inappropriate commentary but generally pleasant, pendingmental health evaluation.04:39 ED course: Laboratory studies reviewed, patient medically cleared np1ubvysan mental health evaluation resting comfortably.06:50 Transition of care: After a detail discussion of the patient's case, bh0hsch is transferred to Anshul Strauss MD.02/903:35 Order [...] 07:31 cm408/0903:35 Order name: Mental Health Evaluation cm03:35 Order name: Mental Health Level 3; Complete Time: 07:31 cm408/0903:35 Order name: VS q shift; Complete Time: 07:32 cm408/0904:39 Order name: Medically Cleared for Eval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 and/or Sul fapyridine may havefalsely depressed ALT levels. Patients should be drawn forALT before the initial administration of either drug. AST 22 U/L 6-38 [facility] Patients taking Sulfasalazine and/or Sul fapyridine may havefalsely depressed AST levels. Patients should be drawn forAST before the initial administration of either drug. ID Date Data Source [id number] 01/28/2021 10:22:00 AM EDT [facility] [place] Name Value Range Interpretation Code Description Data Stephanie rce(s) Supporting Document(s) WBC 5.96 x10E3/uL 4.0-10.5 [facility] RBC 4.47 x10E6/uL 4.20-5.40 [facility] Hemoglobin 13.4 g/dL 12.0-16.0 [facility] Hematocrit 39.5 % 37.0-47.0 [facility] MCV 88.4 fL 81.0-99.0 [facility] MCH 30.0 pg 27.0-31.0 [facility] MCHC 33.9 g/dL 32.7-35.6 [facility] RDW 12.0 % 11.5-14.0 [facility] Platelet count 256 x10E3/uL 150-450 [facility] ital MPV 9.5 fl 6.9-9.5 [facility] Neutrophils 55.0 % 34-64 [facility] Lymphocytes 35.9 % 25-45 [facility] Monocytes 6.5 % 1.7-10.6 [facility] Eosinophils 1.8 % 0.4-7.0 [facility] Basophils 0.3 % 0.1-2.0 [facility] Imm. Gran. 0.5 % 0.1-2.0 [facility] Abs. Neutro. 3.27 x10E3/uL 1.2-7.6 [facility] [place] Abs. Lymph. 2.14 x10E3/uL 1.0-3.5 [facility] Abs. [place]. 0.39 x10E3/uL 0.1-1.0 [facility] Abs. Eosin. 0.11 x10E3/uL 0.1-0.7 [facility] Abs. Baso. 0.02 x10E3/uL 0.0-0.1 [facility] Abs. Imm. Gran. 0.03 x10E3/uL 0.0-0.1 [facility] spital ANRBC% 0 % 0 [facility] ID Date Data Source [id number] 01/28/2021 09:45:00 AM EDT [facility] [address] PROGRESS NOTEPATIENT NAME: YARELI HATCH PHYSICIAN: BROOKLYN ONEILL MDAUTHOR: Lana Aquino. DATE: 01/03/21 MR#: [id number] NOTE DATE: 01/28/21 RM#: 308EVALUATION TIME: 954 [...] rce(s) Supporting Document(s) ID Date Data Source [id number] 01/27/2021 10:15:00 AM EDT [facility] HEALTH PROGRESS NOTEPATIENT NAME: YARELI HATCH PHYSICIAN: BROOKLYN ONEILL MDAUTHOR: Gema WHITE,DylanADM. DATE: 01/03/21 MR#: [id number] NOTE DATE: 01/27/21 RM#: 308EVALUATION TIME: 1114 is a 20-year-old white female.CC/Hx Present Illness"I overdosed"Events Since Last EntryPatient met with team today and presented as disheveled, unkempt, andmalodorous. Present were myself, learning and development coordinator, and charge nurse.Weekend events were discussed. [...] focused on havingmore one-on-one attention with her learning and development coordinator. She was told due toher behaviors [...] hasbeen receiving. Still awaiting bed availability at [facility] for housing as per herAOT. She currently [...] rce(s) Supporting Document(s) ID Date Data Source [id number] 02/03/2021 11:47:00 AM EDT [facility] [place] [id number] HEALTH PROGRESS NOTEPATIENT NAME: YARELI HATCH CATSALVADOR PHYSICIAN: BROOKLYN ONEILL MDAUTHOR: Pasquale WHITE,Ana. DATE: 01/03/21 MR#: [id number] NOTE DATE: 01/26/21 RM#: 308EVALUATION TIME: 1154 [...] rce(s) Supporting Document(s) ID Date Data Source [id number] 01/24/2021 09:36:00 AM EDT [place] [id number] HEALTH PROGRESS NOTEPATIENT NAME: YARELI HATCH CATSALVADOR PHYSICIAN: BROOKLYN ONEILL, MDAUTHOR: Lana Aquino. DATE: 01/03/21 MR#: [id number] NOTE DATE: 01/24/21 RM#: 308EVALUATION TIME: 951 is a 20-year-old white female.CC/Hx Present Illness"I overdosed"Events Since Last EntryPatient presented as unkempt, disheveled and malodorous today. We discussedJelenahaela's good behaviors from yesterday and we also discussed boundaries todayin regards to staff and her learning and development coordinator. Patient became upset whenwe discussed boundaries [...] breath that was not audible to myself,the learning and development coordinator or the charge nurse.Mental status exam: [...] rce(s) Supporting Document(s) ID Date Data Source [id number] 01/23/2021 09:20:00 AM EDT [address] PROGRESS NOTEPATIENT NAME: YARELI HATCH PHYSICIAN: BROOKLYN ONEILL MDAUTHOR: Lana Aquino. DATE: 01/03/21 MR#: [id number] NOTE DATE: 01/23/21 RM#: 308EVALUATION TIME: 935 is a 20-year-old white female.CC/Hx Present Illness"I overdosed"Events Since Last EntryPresented today as cooperative and pleasant. In the meeting today the chargenurse was present, myself, and her learning and development coordinator Madelin. We discussedthe events yesterday that [...] also wrote a letter inputted underneath the learning and development coordinator'sdoor and inquired about this. This was [...] of care.Continuing to await bed availability at [facility].ObjectiveVital SignsVital Signs-LastResult Date TimeB/P 118/78 01/23 [...] rce(s) Supporting Document(s) ID Date Data Source [id number] 01/22/2021 11:07:00 AM EDT [address] HEALTH PROGRESS NOTEPATIENT NAME: YARELI HATCH PHYSICIAN: BROOKLYN ONEILL MDAUTHOR: Lana Aquino. DATE: 01/03/21 MR#: [id number] NOTE DATE: 01/22/21 RM#: 308EVALUATION TIME: 1116 [...] Continue to await for bed availability at [facility].Patient denies any physical and/or medical concerns [...] rce(s) Supporting Document(s) ID Date Data Source [id number] 01/21/2021 08:25:00 AM EDT [address] [address] HEALTH PROGRESS NOTEPATIENT NAME: YARELI HATCH CATTENGIOVANNY PHYSICIAN: BROOKLYN ONEILL MDAUTHOR: Lana Aqunio. DATE: 01/03/21 MR#: [id number] NOTE DATE: 01/21/21 RM#: [id number] TIME: 1000 [...] to wait for an open bed at [facility] for housing.ObjectiveVital SignsVital Signs-LastResult Date TimeB/P [...] rce(s) Supporting Document(s) ID Date Data Source [id number] 01/20/2021 11:20:00 AM EDT [address] HEALTH PROGRESS NOTEPATIENT NAME: YARELI HATCH PHYSICIAN: BROOKLYN ONEILL MDAUTHOR: Lana Aquino. DATE: 01/03/21 MR#: [id number] NOTE DATE: 01/20/21 RM#: [id number] TIME: 1255 [...] would notice. [facility] [...] safety. Continue to await bed availability at [facility] for placement as per [facility] order. Lab work will again be ordered [...] rce(s) Supporting Document(s) ID Date Data Source [id number] 01/18/2021 09:57:00 AM EDT [facility] [place] Name Value Range Interpretation Code Description Data Stephanie rce(s) Supporting Document(s) CHOL 182 mg/dL 100-200 [facility] TRIG 118 mg/dL 30-190 [facility] HDL 52 mg/dL 35-80 [facility] LDL DIRECT 111 mg/dL 0-100 [facility] VLDL 19 mg/dL 0-100 [facility] ID Date Data Source [id number] 01/18/2021 09:57:00 AM EDT [facility] Name Value Range Interpretation Code Description Data Stephanie e(s) Supporting Document(s) GLU 113 mg/dL 70-110 [facility] Patients taking Sulfasalazine may have f alsely depressedGlucose levels. Patients taking Sulfapyridine may havefalsely elevated Glucose levels. Patients should be drawnfor Glucose before the initial administration of eitherdrug. BUN 17 mg/dL 7-23 [facility] CRE 0.741 mg/dL 0.500-1.300 [facility] GFR > 60 mL/min [facility] CHLORIDE 107 mmol/L 99-110 [facility] NA 142 mmol/L 136-147 [facility] POTASSIUM 4.4 mmol/L 3.5-5.1 [facility] TCO2 30 mmol/L 20-33 [facility] ANION GAP 9.4 10.0-20.0 [facility] CA 9.2 mg/dL 8.3-10.7 [facility] ALKALINE PHOS 111 U/L 45-117 [facility] TP 7.3 g/dL 6.0-7.8 [facility] ALB 3.9 g/dL 3.5-5.0 [facility] ESRD Dialysis patient Albumin reference range: 2.9-4.4 g/dL GL 3.4 g/dL 2.3-3.5 [facility] A/G 1.1 1.0-2.5 [facility] T. BILIRUBIN 0.5 mg/dL 0.1-1.1 [facility] [employer] [place] Total Bilirubin is n ot recommended forpatients undergoing treatment with eltrombopag (Promacta)due to the potential for falsely elevated results. ALTI 57 U/L 6-54 [facility] Patients taking Sulfasalazine and/or Sul fapyridine may havefalsely depressed ALT levels. Patients should be drawn forALT before the initial administration of either drug. AST 31 U/L 6-38 [facility] Patients taking Sulfasalazine and/or Sul fapyridine may havefalsely depressed AST levels. Patients should be drawn forAST before the initial administration of either drug. ID Date Data Source [id number] 01/17/2021 10:24:00 AM EDT [facility] [place], [place] [address]MENTAL HEALTH PROGRESS NOTEPATIENT NAME: YARELI HATCH PHYSICIAN: BROOKLYN ONEILL MDAUTHOR: Lana Aquino. DATE: 01/03/21 MR#: [id number] NOTE DATE: 01/17/21 RM#: 3RDOVERFLEVALUATION TIME: 1036 [...] complaints.He said she spoke with her intensive egg caser yesterday, Eve and theycompleted the enrollment paperwork required the intensive case managementprogram. She also said she spoke with Lorraine Regarding a bed at [facility] andaccording to the director of the [...] rce(s) Supporting Document(s) ID Date Data Source [id number] 01/16/2021 01:40:00 PM EDT [address] [id number] HEALTH PROGRESS NOTEPATIENT NAME: YARELI HATCH PHYSICIAN: BROOKLYN ONEILL MDAUTHOR: Gema WHITE,Lana. DATE: 01/03/21 MR#: [id number] NOTE DATE: 01/16/21 RM#: 3RDOVERFLEVALUATION TIME: 1413 is a 20-year-old white female.CC/Hx Present Illness"I overdosed"Events Since Last EntryPatient [facility], unkempt in appearance,and [...] directed back to her initialpresentation [facility] which was bright and cheerful and thisirritated [...] Shortly afterthe meeting she approached Gloria her learning and development coordinator asking to be put onthe [employer] [...] and maintain safety. Await bed availability at [facility] as in accordancewith her AOT. Monitor [...] rce(s) Supporting Document(s) ID Date Data Source [id number] 01/16/2021 10:03:00 AM EDT [facility] Exam Number: [id number] Reported By: - JEREMIAH PEOPLES MD Signed By: JEREMIAH PEOPLES MD Name Value Range Interpretation Code Description Data Stephanie rce(s) Supporting Document(s) ID Date Data Source [id number] 01/15/2021 11:23:00 AM EDT [address] HEALTH PROGRESS NOTEPATIENT NAME: YARELI HATCH PHYSICIAN: BROOKLYN ONEILL MDAUTHOR: Lana Aquino. DATE: 01/03/21 MR#: [id number] NOTE DATE: 01/15/21 RM#: 3RDOVERFLEVALUATION TIME: 1136 [...] physical complaint.ObjectiveVital SignsVital Signs-LastResult Date TimeB/P 139/87 07/07 0915Pulse Ox 97 01/14 1206Temp 97.6 01/14 [...] wait for a bed tobecome available at [facility] as per her AOTDATE SIGNED: 01/15/21 Electronically SignedTIME SIGNED: 1136 DYLAN RIBEIRO Name Value Range Interpretation Code Description Data Stephanie rce(s) Supporting Document(s) ID Date Data Source [id number] 01/14/2021 03:17:00 PM EDT [address] HEALTH PROGRESS NOTEPATIENT NAME: YARELI HATCH CATTENDING PHYSICIAN: BROOKLYN ONEILL MDAUTHOR: Gema WHITE,Lana. DATE: 01/03/21 MR#: [id number] NOTE DATE: 01/14/21 RM#: 320EVALUATION TIME: 1523 [...] rce(s) Supporting Document(s) ID Date Data Source [id number] 01/11/2021 10:27:00 AM EDT [place] [address]MENTAL HEALTH PROGRESS NOTEPATIENT NAME: YARELI HATCH PHYSICIAN: BROOKLYN ONEILL MDAUTHOR: Alfred SMITH,Hussain. DATE: 01/03/21 MR#: [id number] NOTE DATE: 01/11/21 RM#: 320EVALUATION TIME: 1038 [...] rce(s) Supporting Document(s) ID Date Data Source [id number] 01/10/2021 11:17:00 AM EDT [facility] [place], [place] [address]MENTAL HEALTH PROGRESS NOTEPATIENT NAME: YARELI HATCH CHANELLGIOVANNY PHYSICIAN: BROOKLYN ONEILL MDAUTHOR: Lana Aquino. DATE: 01/03/21 MR#: [id number] NOTE DATE: 01/10/21 RM#: 320EVALUATION TIME: 112 is a 20-year-old white female.CC/Hx Present Illness"I [...] rce(s) Supporting Document(s) ID Date Data Source [id number] 01/09/2021 03:23:00 PM EDT [place], [place] [address]MENTAL HEALTH PROGRESS NOTEPATIENT NAME: YARELI HATCH CATTENGIOVANNY PHYSICIAN: BROOKLYN ONEILL MDAUTHOR: Gema WHITE,DylanADM. DATE: 01/03/21 MR#: [id number] NOTE DATE: 01/09/21 RM#: 320EVALUATION TIME: 1527 is a 20-year-old white female.CC/Hx Present Illness"I overdosed"Events Since Last EntryYareli met with treatment team today and she presented overly bright. Shetalked about her bath last night that she took with staff in the [employer]. She expressed excitement regarding this as this [...] SIGNED: 01/09/21 Electronically SignedTIME SIGNED: 1527 DYLAN RIBEIRO Name Value Range Interpretation Code Description Data Stephanie rce(s) Supporting Document(s) ID Date Data Source [id number] 01/09/2021 08:36:00 AM EDT [address] [address]ORRGDT HEALTH PROGRESS NOTEPATIENT NAME: YARELI HATCH CATTENGIOVANNY PHYSICIAN: BROOKLYN ONEILL MDAUTHOR: Lana Aquino. DATE: 01/03/21 MR#: [id number] NOTE DATE: 01/09/21 #: 320EVALUATION TIME: 908 AddendumSubjectiveIdentificationThiseelna is a 20-year-old white female.CC/Hx Present Illness"I [...] in process and awaitingfor bed availability at [facility].Assessment/PlanDiagnosis1. Suicide attemptStatus Acute2. Major depressive disorderStatus Chronic3. Bipolar affective disorderStatus Chronic4. Borderline personality disorderStatus Chronic5. Obesity, morbidStatus ChronicCoordination of care provided with nursing staffRisk/benefits discussed side effectsADDENDUM: Dylan Aquino on 01/09/21 at 0926progress note is for 01/08/2021ATE SIGNED: 01/09/21 Electronically SignedTIME SIGNED: 908 DYLAN Maria De Jesus WHITE GEMA Name Value Range Interpretation Code Description Data Stephanie rce(s) Supporting Document(s) ID Date Data Source [id number] 01/07/2021 02:35:00 PM EDT [address] HEALTH PROGRESS NOTEPATIENT NAME: YARELI HATCH CATTENDING PHYSICIAN: BROOKLYN ONEILL MDAUTHOR: Surendra SMITH,P.ADM. DATE: 01/03/21 MR#: [id number] NOTE DATE: 01/07/21 RM#: 320EVALUATION TIME: 1436 is a 20-year-old white female.CC/Hx Present Illness"I overdosed"Events Since Last EntryYareli was seen today along with the learning and development coordinator, Gloria, and a [facility]student [facility]. She believes herself to be Romel today. Shestates she is doing well. She expressed her interest in AOT for 6 months. Iinformed the patient that we have talked to Omi Tovar about her interest.Patient states she just want to leave the place and go outside. Patient doesnot have any address to discharge to. She states [facility]. Patient was informed that there [place] [facility] and[place] could be transferred there. She was fixated on her discharge and statedthat she does not want to be hospitalized for longer duration.Yareli continues to be irritable and labile affect. [facility]. She [...] with Lorraine Hogan and other agencies including [facility] for housing.Will increase her [place].Portions of this section were scribed by Shell Ariza on 01/10/21 at 1646DATE SIGNED: 01/10/21 Electronically SignedTIME SIGNED: 1648 BROOKLYN ONEILL MD Name Value Range Interpretation Code Description Data Stephanie rce(s) Supporting Document(s) ID Date Data Source [id number] 01/06/2021 02:26:00 PM EDT [place] [id number] HEALTH PROGRESS NOTEPATIENT NAME: YARELI HATCH CATTENDING PHYSICIAN: BROOKLYN ONEILL MDAUTHOR: Surendra SMITH,P.ADM. DATE: 01/03/21 MR#: [id number] NOTE DATE: 01/06/21 RM#: [id number] TIME: 1427 is a 20-year-old white female.CC/Hx Present Illness"I overdosed"Events Since Last EntryYareli was seen today along with the learning and development coordinator, Gloria. Patientwas brought to the ER by rescue squad due to overdose. [facility] in [place], which then she was brought to the [facility] in [facility]. She is on waiting list for [facility] in [place] but isunsure how long will it take. She states she drank a lot of coffee which causedher to be awake whole night and she spent more than 24 hours awake. She gotoverwhelmed and overdosed on Ibuprofen and Prove ntil as she was annoyed by acase financial institution manager who was trying to get her [...] 01/06 0859Resp 18 01/06 0634Current MedicationsMiscellaneous Read [id number] NANicotine (Nicorette) 2 MG Q2HPRN PRN POCarbamide [...] and housing. We are working with [facility] and other housingagencies such as [facility] for supportive housing options.Portions of this section were scribed by Shell Ariza on 01/10/21 at 1643DATE SIGNED: 01/10/21 Electronically SignedTIME SIGNED: 164 BROOKLYN ONEILL MD Name Value Range Interpretation Code Description Data Stephanie rce(s) Supporting Document(s) ID Date Data Source [id number] 01/04/2021 09:49:00 AM EDT [address] PSYCHIATRIC ASSESSMENTPATIENT NAME: YARELI HATCH MR#: [id number] PHYSICIAN: AMADA SIMON MDAUTHOR: Alfred SMITH,Amada DATE: 01/03/21 RM#: [id number]atient is a 20-year-old white female who was brought to [facility] ED by rescuesquad.Chief Complaint"I overdosed"Reason for AdmissionPatient overdosed on Ibuprofen and Proventil. Patient is not sure why she didit, but she also states that it may have been a suicidal attempt. Her sleep isok. Appetite is good. She has a hx of impulse control problem. She has beenfeeling hopelese, helpless and depressed at times. She was living at [facility]. Shehas been been asked by the [facility] not to return back with them, so she is homelessat this time.History of Presenting IllnessPatient was brought to ED by rescue squad due to overdose. [facility], to [facility], which then she was brought to the [facility] building in [facility]. Sheis on the waiting list for [facility] in [place] but is unsure on how long it willtake. Patient has a long history of suicidal attempts, and also has hadnumerous inpatient admissions to this facility and to other facilities throughout [facility].Portions of this section were scribed by [...] of Knowledge: awareness of low normal rangeAdditional Ukehs87-qyjj-owf white female who was cooperative during the [...] rce(s) Supporting Document(s) ID Date Data Source [id number] 01/03/2021 05:30:00 PM EDT [address] HEALTH HISTORY AND PHYSICALPATIENT NAME: YARELI HATCH MR#: [id number] PHYSICIAN: AMADA SIMON MDAUTHOR: Theresa Melchor DATE: 01/03/21 RM#: [id number] [...] MeanPulse Ox 99 99 99O2 DeliveryO2 Flow EpzsDrD0Hnnjqlrz ExaminationGeneral Appearance no acute distress, conversant, face [...] CloudyUrine pH (5.0 - 8.0) 6.0Ur Specific Randle (1.010 - 1.025) 1.033 HUrine Protein (Negative) 2+Urine Ketones (NEGATIVE) TraceUrine Blood (NEGATIVE) NegativeUrine Nitrite (Negative) NegativeUr Bilirubin Confirm (NEGATIVE) NegativeUrine Urobilinogen (0.2 - 1.0 mg/dL) 1.0Urine Leukocytes (Negative) NegativeUrine RBC (NONE SEEN) 0-2 RBCs/HPFUrine WBC (NONE SEEN) 0-2 WBCs/HPFUrine Crystals (NONE SEEN) MODERATE AMORPHOUSUrine Bacteria (NONE SEEN) ModerateUrine Glucose (NEGATIVE) Msdhldht98/198662KeyhtmolHAROR-60 (CORDELL) (NEGATIVE) PEAIGMAIKcrggrtmjqyz49/24 1602 URINE,CC: Urine Culture - RESAssessment/PlanDiagnosis/Problem1. Suicide attemptStatus Acute2. Major depressive disorderStatus Chronic3. Bipolar affective disorderStatus Chronic4. Borderline personality disorderStatus Chronic5. Obesity, morbidStatus Adult Neurologist nicAdditional NotesWill defer psychiatric problems to our psychiatry teamPatient denies medical issues at present and she has been cleared medically.Resuscitation status Full codePlan discussed with patientCase discussed with nursing staffCopies ToCopies to Family Provider: NO,ONEDATE SIGNED: 01/03/21 Electronically SignedTIME SIGNED: 180 THERESA MELCHOR Name Value Range Interpretation Code Description Data Stephanie rce(s) Supporting Document(s) ID Date Data Source [id number] 01/03/2021 12:52:00 PM EDT [facility] Name Value Range Interpretation Code Description Data Stephanie rce(s) Supporting Document(s) LCOVID-19, CORDELL NEGATIVE [facility] This lab was ordered by [facility] and reported by [facility]. ID Date Data Source [id number] 01/03/2021 01:43:00 PM EDT [facility] Name Value Range Interpretation Code Description Data Stephanie rce(s) Supporting Document(s) COVID-19, CORDELL NEGATIVE NEGATIVE N [facility] Methodology: Isothermal Nucleic Acid Amp [...] Emergency Use Authorization. ID Date Data Source [id number] 01/02/2021 04:50:00 PM EDT [facility] [place] Name Value Range Interpretation Code Description Data Stephanie rce(s) Supporting Document(s) PCP VISTA NEG NEGATIVE [facility] MINIMUM LEVEL OF DETECTION IS 25 ng/ml BENZODIAZEPINES NEG NEGATIVE [facility] al MINIMUM LEVEL OF DETECTION IS 200 ng/ml COCAINE VISTA NEG NEGATIVE [facility] MINIMUM LEVEL OF DETECTION IS 300 ng/ml AMPHETAMINES NEG NEGATIVE [facility] al MINIMUM LEVEL OF DETECTION IS 1000 ng/ml BARBITURATES NEG NEGATIVE [facility] al CUTOFF CONCENTRATION IS 200 ng/ml CANNABINOIDS NEG NEGATIVE [facility] al CUTOFF CONCENTRATION IS 50 ng/ml METHADONE VISTA NEG NEGATIVE [facility] MINIMUM LEVEL OF DETECTION IS 300 ng/ml OPIATE VISTA NEG NEGATIVE [facility] MINIMUM DETECTION LEVEL IS 300 ng/ml ID Date Data Source [id number] 01/02/2021 04:36:00 PM EDT [facility] Urine Bilirubin test must be confirmed w ith Ictotest Method Urine Bilirubin test must be confirmed w ith Ictotest Method Name Value Range Interpretation Code Description Data Stephanie rce(s) Supporting Document(s) URINE COLOR DK YELLOW [facility] UAPR Cloudy [facility] UGLU Negative NEGATIVE [facility] URINE BILIRUBIN Negative NEGATIVE [facility] al UKET Trace NEGATIVE [facility] USG 1.033 1.010-1.025 H [facility] UBLO Negative NEGATIVE [facility] UpH 6.0 5.0-8.0 [facility] UPRO 2+ Negative [facility] UUB 1.0 mg/dL 0.2-1.0 [facility] UNIT Negative Negative [facility] ULEU Negative Negative [facility] ID Date Data Source [id number] 01/02/2021 04:36:00 PM EDT [facility] [place] Urine Bilirubin test must be confirmed w ith Ictotest Method Urine Bilirubin test must be confirmed w ith Ictotest Method Name Value Range Interpretation Code Description Data Stephanie rce(s) Supporting Document(s) URINE RBC 0-2 RBCs/HPF NONE SEEN [facility] URINE WBC 0-2 WBCs/HPF NONE SEEN [facility] URINE BACTERIA Moderate NONE SEEN [facility] l A URINE CULTURE HAS BEEN ADDED TO THIS S PECIMEN URINE EPI. Moderate NONE SEEN [facility] URINE CRYSTAL MODERATE AMORPHOUS NONE SEEN [facility] ID Date Data Source [id number] 01/02/2021 04:00:00 PM EDT [facility] Name Value Range Interpretation Code Description Data Stephanie rce(s) Supporting Document(s) WBC 9.40 x10E3/uL 4.0-10.5 [facility] RBC 4.29 x10E6/uL 4.20-5.40 [facility] Hemoglobin 13.0 g/dL 12.0-16.0 [facility] Hematocrit 38.1 % 37.0-47.0 [facility] MCV 88.8 fL 81.0-99.0 [facility] MCH 30.3 pg 27.0-31.0 [facility] MCHC 34.1 g/dL 32.7-35.6 [facility] RDW 12.0 % 11.5-14.0 [facility] Platelet count 278 x10E3/uL 150-450 [facility] ital MPV 9.1 fl 6.9-9.5 [facility] Neutrophils 58.6 % 34-64 [facility] Lymphocytes 32.4 % 25-45 [facility] Monocytes 8.1 % 1.7-10.6 [facility] Eosinophils 0.4 % 0.4-7.0 [facility] Basophils 0.2 % 0.1-2.0 N [facility] Imm. Gran. 0.3 % 0.1-2.0 N [facility] Abs. Neutro. 5.50 x10E3/uL 1.2-7.6 N [facility] Abs. Lymph. 3.05 x10E3/uL 1.0-3.5 [facility] Abs. [place]. 0.76 x10E3/uL 0.1-1.0 [facility] Abs. Eosin. 0.04 x10E3/uL 0.1-0.7 L [facility] Abs. Baso. 0.02 x10E3/uL 0.0-0.1 [facility] Abs. Imm. Gran. 0.03 x10E3/uL 0.0-0.1 N [facility] spital ANRBC% 0 % 0 N [facility] ID Date Data Source [id number] 01/02/2021 05:13:00 PM EDT [facility] Name Value Range Interpretation Code Description Data Stephanie rce(s) Supporting Document(s) SALICYLATE < 1.7 mg/dL 0.0-20.0 [facility] ID Date Data Source [id number] 01/02/2021 05:13:00 PM EDT [facility] Name Value Range Interpretation Code Description Data Stephanie rce(s) Supporting Document(s) ACETAMINOPHEN < 2.0 ug/mL 0-30 [facility] ID Date Data Source [id number] 01/02/2021 05:13:00 PM EDT [facility] Name Value Range Interpretation Code Description Data Stephanie rce(s) Supporting Document(s) HCG QUAL SERUM Negative Negative [facility] ID Date Data Source [id number] 01/02/2021 05:13:00 PM EDT [facility] Name Value Range Interpretation Code Description Data Stephanie rce(s) Supporting Document(s) ETOH NONE DETECTED N [facility] NONE DETECTED ID Date Data Source [id number] 01/02/2021 05:13:00 PM EDT [facility] Name Value Range Interpretation Code Description Data Stephanie rce(s) Supporting Document(s) GLU 119 mg/dL 70-110 H [facility] Patients taking Sulfasalazine may have f alsely depressedGlucose levels. Patients taking Sulfapyridine may havefalsely elevated Glucose levels. Patients should be drawnfor Glucose before the initial administration of eitherdrug. BUN 14 mg/dL 7-23 [facility] CRE 0.783 mg/dL 0.500-1.300 [facility] GFR > 60 mL/min [facility] CHLORIDE 109 mmol/L 99-110 [facility] NA 144 mmol/L 136-147 [facility] POTASSIUM 3.6 mmol/L 3.5-5.1 [facility] TCO2 26 mmol/L 20-33 [facility] ANION GAP 12.6 10.0-20.0 [facility] CA 9.2 mg/dL 8.3-10.7 [facility] ALKALINE PHOS 110 U/L 45-117 [facility] TP 7.8 g/dL 6.0-7.8 [facility] ALB 4.0 g/dL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 rce(s) Supporting Document(s) ID Date Data Source [id number] 12/25/2020 04:38:00 PM EDT [address] HEALTH PROGRESS NOTEPATIENT NAME: YARELI HATCH CATSALVADOR PHYSICIAN: BROOKLYN ONEILL MDAUTHOR: Surendra SMITH,P.ADM. DATE: 10/31/20 MR#: [id number] NOTE DATE: 12/25/20 RM#: [id number] TIME: 1644 [...] rce(s) Supporting Document(s) ID Date Data Source [id number] 12/24/2020 06:20:00 PM EDT [facility] [place] [address]MENT[facility] HEALTH PROGRESS NOTEPATIENT NAME: YARELI HATCH CATTENDING PHYSICIAN: BROOKLYN ONEILL MDAUTHOR: Surendra SMITH,P.ADM. DATE: 10/31/20 MR#: [id number] NOTE DATE: 12/24/20 RM#: 310EVALUATION TIME: 1819 is 20-year-old female, currently single, past psych historyof bipolar disorder, poor impulse control and borderline personality disorderChief complaint concern about her ability to maintain safety and possiblesuicidal thoughtsEvents Since Last EntryYareli was seen today along with the learning and development coordinator, Gloria, and a PAstudent from [facility]. She was giggly today. She was laughingcontinuously [...] patient she got defensive. [facility] and stated she has no idea how this hospital works. Patient was notcooperative during the session today. She states she feels she is in [facility]. Ieducated the patient that she is always focused on her rights and she does notfocus on herself in her responsibilities. She inquired about her discharge. Iadvised the patient that she will be discharge after bed opening at [place]". She stated she would like to go to the court for her discharge. Patient madea statement "I am 20 years old. I can live my life the way I want without beingtold by a psychiatrist about how to live it, [facility]". I advise the patient that going to [...] awaiting for the bed to open in [facility] at which point she will betransferred to [facility] in [place].Portions of this section were scribed by Shell Ariza on 12/24/20 at 1821DATE SIGNED: 12/24/20 Electronically SignedTIME SIGNED: 1828 BROOKLYN ONEILL MD Name Value Range Interpretation Code Description Data Stephanie rce(s) Supporting Document(s) ID Date Data Source [id number] 12/23/2020 02:39:00 PM EDT [place] [id number] HEALTH PROGRESS NOTEPATIENT NAME: YARELI HATCH PHYSICIAN: BROOKLYN ONEILL, MDAUTHOR: Surendra SMITH,P.ADM. DATE: 10/31/20 MR#: [id number] NOTE DATE: 12/23/20 RM#: 310EVALUATION TIME: 1439 is 20-year-old female, currently single, past psych historyof bipolar disorder, poor impulse control and borderline personality disorderChief complaint concern about her ability to maintain safety and possiblesuicidal thoughtsEvents Since Last EntryYareli was seen today along with the learning and development coordinator, Chloe, and aPA student from [employer] [employer]. Her mood is better today. She did not showany sign of agitation or irritation. Patient stated she is not functioning wellright now, and she feels nervous. She expressed that she feels more depressedwhen she is alone and independent, which shows that she is not ready to beplaced in [facility] in [place]. Patient also talked about the AOT. She [...] to [facility] We explained to her [...] rce(s) Supporting Document(s) ID Date Data Source [id number] 12/20/2020 05:13:00 PM EDT [facility] [place] [id number] HEALTH PROGRESS NOTEPATIENT NAME: DAMARISYARELI CATTENDING PHYSICIAN: BROOKLYN ONEILL MDAUTHOR: Surendra SMITH,P.ADM. DATE: 10/31/20 MR#: [id number] NOTE DATE: 12/20/20 RM#: 310EVALUATION TIME: 1714 is 20-year-old female, currently single, past psych historyof bipolar disorder, poor impulse control and borderline personality disorderChief complaint concern about her ability to maintain safety and possiblesuicidal thoughtsEvents Since Last EntryKenneth was seen today along with the learning and development coordinator, Cata, and a PAstudent from [employer]. She states she is not in [facility] of [facility]. She sates that [facility] because she needs more structured place like community residenceand not an apartment residence as she cannot live independently. Patient eugene talked to Dejon who works in [facility], and he asked her questionslike if she knows how to cook and clean because she has to do all that byherself in [facility]. She states she will be starving as she does not knowhow to cook and she cannot live all by herself, and she also cannot docleaning. She made a statement that "I will not be able to last long in [facility]". I explained to the patient [...] can find other community residence better than [facility]. Iadvised the patient that this is the only good discharge plan she has as noother residence or institution is willing to accept her. Patient states blankaoes not want to go for something which she cannot do because she does not wantto fail. She states [facility] failed her so many times in the [...] as she is under jurisdiction of [facility] and is under AOT theycarolenot do that. Patient states she feels [place] would be a better place forher to stay as compared to [place]. I Informed the patient that Residenciesand institutions in [place] has also rejected her. I also explained to thepatient that I will be happy to transfer her to [place] if she is acceptedthere. I told the patient that I will talk to the treatment team to see ifthere is any chance if she gets placed in TLS in [place]. I also counselledthe patient that she is [...] rce(s) Supporting Document(s) ID Date Data Source [id number] 12/19/2020 02:18:00 PM EDT [place], [place] [address]MENTAL HEALTH PROGRESS NOTEPATIENT NAME: YARELI HATCH CATSALVADOR PHYSICIAN: BROOKLYN ONEILL MDAUTHOR: Surendra SMITH,P.ADM. DATE: 10/31/20 MR#: [id number] NOTE DATE: 12/19/20 RM#: 310EVALUATION TIME: 1420 is 20-year-old female, currently single, past psych historyof bipolar disorder, poor impulse control and borderline personality disorderChief complaint concern about her ability to maintain safety and possiblesuicidal thoughtsEvents Since Last EntryYareli was seen today along with the learning and development coordinator, Cata, and a PAstudent from [facility]. She was in irritated mood today. She [...] rce(s) Supporting Document(s) ID Date Data Source [id number] 12/18/2020 01:22:00 PM EDT [facility] [id number] HE[facility] PROGRESS NOTEPATIENT NAME: YARELI HATCH CATTENDING PHYSICIAN: BROOKLYN ONEILL MDAUTHOR: Surendra SMITH,P.ADM. DATE: 10/31/20 MR#: [id number] NOTE DATE: 12/18/20 RM#: 310EVALUATION TIME: 1559 is 20-year-old female, currently single, past psych historyof bipolar disorder, poor impulse control and borderline personality disorderChief complaint concern about her ability to maintain safety and possiblesuicidal thoughtsEvents Since Last EntryYareli was seen today along with the learning and development coordinator, Gloria, and a PAstudent from [facility]. Patient seems upset today. She calmlyexpressed that [...] of psychosis. Yareli was also educated about fpc therapy andcounselling.Subsequently, during the later part of [...] rce(s) Supporting Document(s) ID Date Data Source [id number] 12/17/2020 01:39:00 PM EDT [address] HEALTH PROGRESS NOTEPATIENT NAME: YARELI HATCH CATTENGIOVANNY PHYSICIAN: BROOKLYN ONEILL MDAUTHOR: Surendra SMITH,P.ADM. DATE: 10/31/20 MR#: [id number] NOTE DATE: 12/17/20 RM#: 310EVALUATION TIME: 1339 is 20-year-old female, currently single, past psych historyof bipolar disorder, poor impulse control and borderline personality disorderChief complaint concern about her ability to maintain safety and possiblesuicidal thoughtsEvents Since Last EntryYareli was seen today along with the learning and development coordinator, Gloria, and a PAstudent from [facility]. She is not satisfied with the plan of beingtransferred to [facility]. She states she feels she is forced to go to [facility], and shedoes not want to be placed there. Patient was explained she is not forced, butno other institution is ready to accept her and therefore, TLS is her onlyoption. Patient states she does not want to go to [facility] at any cost as she cannotstand to their programs. She continues to sabotage her treatment plan. She alsostates she will not open to any therapist ever; therefore, this discharge planwill not work. Subsequently, she agreed to be transferred to [facility]. She wasinformed that she would [facility] for her outpatientservices. She did not show [...] of the teamduring the meeting with [facility] that TLS will be the best program for her.Portions of this section were scribed by Shell Ariza on 12/17/20 at 1616DATE SIGNED: 12/17/20 Electronically SignedTIME SIGNED: 161 BROOKLYN ONEILL MD Name Value Range Interpretation Code Description Data Stephanie rce(s) Supporting Document(s) ID Date Data Source [id number] 12/16/2020 01:51:00 PM EDT [address] HEALTH PROGRESS NOTEPATIENT NAME: YARELI HATCH CATTENGIOVANNY PHYSICIAN: BROOKLYN ONEILL MDAUTHOR: Surendra SMITH,P.ADM. DATE: 10/31/20 MR#: [id number] NOTE DATE: 12/16/20 RM#: 310EVALUATION TIME: 1351 is 20-year-old female, currently single, past psych historyof bipolar disorder, poor impulse control and borderline personality disorderChief complaint concern about her ability to maintain safety and possiblesuicidal thoughtsEvents Since Last EntryYareli was seen today along with the learning and development coordinator, Gloria, and a PAstudent from [facility]. She continues to think she is [place]. [...] rce(s) Supporting Document(s) ID Date Data Source [id number] 12/13/2020 03:30:00 PM EDT [place] [id number] HEALTH PROGRESS NOTEPATIENT NAME: YARELI HATCH PHYSICIAN: BROOKLYN ONEILL MDAUTHOR: Surendra SMITH,P.ADM. DATE: 10/31/20 MR#: [id number] NOTE DATE: 12/13/20 RM#: 310EVALUATION TIME: 1531 is 20-year-old female, currently single, past psych historyof bipolar disorder, poor impulse control and borderline personality disorderChief complaint concern about her ability to maintain safety and possiblesuicidal thoughtsEvents Since Last EntryYareli was seen today along with the learning and development coordinator, Gloria, and a PAstudent from [facility]. She was in better mood today. Patient [...] agreed upon during the meeting with [facility] that she will beaccepted to [facility] or [...] at 1744DATE SIGNED: 12/13/20 Electronically SignedTIME SIGNED: 174 BROOKLYN ONEILL MD Name Value Range Interpretation Code Description Data Stephanie rce(s) Supporting Document(s) ID Date Data Source [id number] 12/12/2020 02:53:00 PM EDT [address] HEALTH PROGRESS NOTEPATIENT NAME: YARELI HATCH CATSALVADOR PHYSICIAN: BROOKLYN ONEILL MDAUTHOR: Surendra SMITH,P.ADM. DATE: 10/31/20 MR#: [id number] NOTE DATE: 12/12/20 RM#: 310EVALUATION TIME: 1453 is 20-year-old female, currently single, past psych historyof bipolar disorder, poor impulse control and borderline personality disorderChief complaint concern about her ability to maintain safety and possiblesuicidal thoughtsEvents Since Last EntryYareli was seen today along with the learning and development coordinator, Gloria, and a PAstudent from [facility]. She reports nightmare. She stated sheexperienced headache [...] on Latuda.We had a meeting with [facility] and other agencies. In the meantime, we agreed onthat she will go to [facility] when a bed opens up after the AOT is completed. Flako also get intensive case management and she will also receive [facility] teamhelp.Portions of this section were scribed [...] rce(s) Supporting Document(s) ID Date Data Source [id number] 12/11/2020 01:15:00 PM EDT [address] HEALTH PROGRESS NOTEPATIENT NAME: YARELI HATCH PHYSICIAN: BROOKLYN ONEILL MDAUTHOR: Surendra SMITH,P.ADM. DATE: 10/31/20 MR#: [id number] NOTE DATE: 12/11/20 RM#: 315EVALUATION TIME: 1316 is 20-year-old female, currently single, past psych historyof bipolar disorder, poor impulse control and borderline personality disorderChief complaint concern about her ability to maintain safety and possiblesuicidal thoughtsEvents Since Last EntryKenneth was seen today along with the learning and development coordinator, Gloria. Patientwas irritated today. She was [...] Rigo, and she is a "transexual"; therefore, ann-maries not want to share her room with [...] effectsAdditional NotesPlan:We have a meeting with [facility] tomorrow regarding her placement, but so far, mostinstitutions we have contacted have either denied her or unwilling to accepther. Will discuss this further with [facility] tomorrow.Portions of this section were scribed by Shell Ariza on 12/11/20 at 1717DATE SIGNED: 12/11/20 Electronically SignedTIME SIGNED: 171 BROOKLYN ONEILL MD Name Value Range Interpretation Code Description Data Stephanie rce(s) Supporting Document(s) ID Date Data Source [id number] 12/10/2020 04:02:00 PM EDT [place] [id number] HEALTH PROGRESS NOTEPATIENT NAME: YARELI HATCH CATTENDING PHYSICIAN: BROOKLYN ONEILL MDAUTHOR: Surendra SMITH,P.ADM. DATE: 10/31/20 MR#: [id number] NOTE DATE: 12/10/20 RM#: 309EVALUATION TIME: 1816 is 20-year-old female, currently single, past psych historyof bipolar disorder, poor impulse control and borderline personality disorderChief complaint concern about her ability to maintain safety and possiblesuicidal thoughtsEvents Since Last EntryYareli was seen today along with the learning and development coordinator, Gloria. She wasvery irritable with the [...] night. She gave a suicidenote to the learning and development coordinator indicating that she wants to end [...] We have a meeting with the [facility] on to discussplacement options for her.Portions of [...] a meeting coming up onThursday with [facility] to discuss about her placement.Portions of this section were scribed by Shell Ariza on 12/10/20 at 1814DATE SIGNED: 12/10/20 Electronically SignedTIME SIGNED: 1817 BROOKLYN ONEILL MD Name Value Range Interpretation Code Description Data Stephanie rce(s) Supporting Document(s) ID Date Data Source [id number] 12/06/2020 02:20:00 PM EDT [place] [id number] HEALTH PROGRESS NOTEPATIENT NAME: YARELI HATCH CATTENGIOVANNY PHYSICIAN: BROOKLYN ONEILL MDAUTHOR: Surendra SMITH,P.ADM. DATE: 10/31/20 MR#: [id number] NOTE DATE: 12/06/20 RM#: 310EVALUATION TIME: 1421 is 20-year-old female, currently single, past psych historyof bipolar disorder, poor impulse control and borderline personality disorderChief complaint concern about her ability to maintain safety and possiblesuicidal thoughtsEvents Since Last EntryYareli was seen today along with the learning and development coordinator, Gloria, and a PAstudent from [facility]. There is no improvement in her. Patient [...] on a plan to meet with [facility] and Lorraine to findappropriate place and options. Unfortunately, many supportive housing optionsare refusing to take her because of her past history with them.Portions of this section were scribed by Shell Ariza on 12/06/20 at 1457DATE SIGNED: 12/06/20 Electronically SignedTIME SIGNED: 8915 BROOKLYN ONEILL MD Name Value Range Interpretation Code Description Data Stephaine rce(s) Supporting Document(s) ID Date Data Source [id number] 12/05/2020 03:10:00 PM EDF [facility] [place], [place] [address]VFMTPH HEALTH PROGRESS NOTEPATIENT NAME: DAMARISYARELI Patel PHYSICIAN: BROOKLYN ONEILL MDAUTHOR: Surendra SMITH,P.ADM. DATE: 10/31/20 MR#: [id number] NOTE DATE: 12/05/20 RM#: 310EVALUATION TIME: 1512 is 20-year-old female, currently single, past psych historyof bipolar disorder, poor impulse control and borderline personality disorderChief complaint concern about her ability to maintain safety and possiblesuicidal thoughtsEvents Since Last EntryMickyala was seen today along with the learning and development coordinator, Gloria. Patientstates she had bad dream [...] Date TimePulse Ox 99 12/05 1139B/P 12 2/78 12/05 1139Temp 97.7 12/05 1139Pulse 93 12/05 [...] not save for discharge. Her meeting with KARLA hamiltonen postponed until next week. At this point [...] rce(s) Supporting Document(s) ID Date Data Source [id number] 12/04/2020 03:07:00 PM EDT [address] HEALTH PROGRESS NOTEPATIENT NAME: DAMARISYARELI CAPELLAN CATTENGIOVANNY PHYSICIAN: BROOKLYN ONEILL MDAUTHOR: Surendra SMITH,P.ADM. DATE: 10/31/20 MR#: [id number] NOTE DATE: 12/04/20 RM#: 310EVALUATION TIME: 1508 is 20-year-old female, currently single, past psych historyof bipolar disorder, poor impulse control and borderline personality disorderChief complaint concern about her ability to maintain safety and possiblesuicidal thoughtsEvents Since Last EntryYareli was seen today along with the learning and development coordinator, Gloria, and a PAstudent from [facility]. She refused to see me today. I [...] are still planning on meeting with [facility] regarding her.Portions of this section were scribed by Shell Ariza on 12/04/20 at 1528DATE SIGNED: 12/04/20 Electronically SignedTIME SIGNED: 1531 BROOKLYN ONEILL MD Name Value Range Interpretation Code Description Data Stephanie rce(s) Supporting Document(s) ID Date Data Source [id number] 12/03/2020 01:41:00 PM EDT [place] [id number] HEALTH PROGRESS NOTEPATIENT NAME: YARELI HATCH PHYSICIAN: BROOKLYN ONEILL MDAUTHOR: Surendra SMITH,P.ADM. DATE: 10/31/20 MR#: [id number] NOTE DATE: 12/03/20 RM#: 310EVALUATION TIME: 1346 is 20-year-old female, currently single, past psych historyof bipolar disorder, poor impulse control and borderline personality disorderChief complaint concern about her ability to maintain safety and possiblesuicidal thoughtsEvents Since Last EntryYareli was seen today along with the learning and development coordinator, Gloria. She isvery angry and agitated. [...] rce(s) Supporting Document(s) ID Date Data Source [id number] 12/03/2020 02:56:00 PM EDT Joe [address] [address] HEALTH PROGRESS NOTEPATIENT NAME: DAMARISJELENAYARELI CATSALVADOR PHYSICIAN: BROOKLYN ONEILL MDAUTHOR: Surendra SMITH,P.ADM. DATE: 10/31/20 MR#: [id number] NOTE DATE: 12/02/20 #: 310EVALUATION TIME: 1458 is 20-year-old female, currently single, past psych historyof bipolar disorder, poor impulse control and borderline personality disorderChief complaint concern about her ability to maintain safety and possiblesuicidal thoughtsEvents Since Last EntryYareli Was seen today along with the learning and development coordinator, Gloria, and a PAstudent from [facility]. She was in better mood. She was [...] schedule for her to meet with [facility] as well as Lorraine Hoganregarding her as the placement continues to be a problem.Portions of this section were scribed by Shell Ariza on 12/03/20 at 1456DATE SIGNED: 12/04/20 Electronically SignedTIME SIGNED: 1533 BROOKLYN ONEILL MD Name Value Range Interpretation Code Description Data Stephanie rce(s) Supporting Document(s) ID Date Data Source [id number] 11/29/2020 04:02:00 PM EDT [address] HEALTH PROGRESS NOTEPATIENT NAME: YARELI HATCH CATTENGIOVANNY PHYSICIAN: BROOKLYN ONEILL MDAUTHOR: Surendra SMITH,P.ADM. DATE: 10/31/20 MR#: [id number] NOTE DATE: 11/29/20 RM#: 310EVALUATION TIME: 1602 is 20-year-old female, currently single, past psych historyof bipolar disorder, poor impulse control and borderline personality disorderChief complaint concern about her ability to maintain safety and possiblesuicidal thoughtsEvents Since Last EntryYareli was seen today along with the learning and development coordinator, Gloria. She didnot allow the students [...] rce(s) Supporting Document(s) ID Date Data Source [id number] 11/28/2020 04:08:00 PM EDT [address] HEALTH PROGRESS NOTEPATIENT NAME: DAMARISAYRELI SUAREZTENGIOVANNY PHYSICIAN: BROOKLYN ONEILL MDAUTHOR: Surendra SMITH,P.ADM. DATE: 10/31/20 MR#: [id number] NOTE DATE: 11/28/20 RM#: 310EVALUATION TIME: 1624 is 20-year-old female, currently single, past psych historyof bipolar disorder, poor impulse control and borderline personality disorderChief complaint concern about her ability to maintain safety and possiblesuicidal thoughtsEvents Since Last EntryYareli was seen today along with the learning and development coordinator, Gloria, she didnot allow the student [...] and Lorraine to arrange a meeting with [facility] to discuss aboutany other option available for her. patient has refused for any medicationchanges.Portions of this section were scribed by Shell Ariza on 11/28/20 at 1622DATE SIGNED: 11/28/20 Electronically SignedTIME SIGNED: 1625 BROOKLYN ONEILL MD Name Value Range Interpretation Code Description Data Stephanie rce(s) Supporting Document(s) ID Date Data Source [id number] 11/27/2020 03:38:00 PM EDT [address] HEALTH PROGRESS NOTEPATIENT NAME: YARELI HATCH PHYSICIAN: BROOKLYN ONEILL MDAUTHOR: Surendra SMITH,P.ADM. DATE: 10/31/20 MR#: [id number] NOTE DATE: 11/27/20 RM#: 310EVALUATION TIME: 1539 is 20-year-old female, currently single, past psych historyof bipolar disorder, poor impulse control and borderline personality disorderChief complaint concern about her ability to maintain safety and possiblesuicidal thoughtsEvents Since Last EntryYareli was seen today along with the learning and development coordinator, Gloria, and a PAstudent from [facility]. She is doing well. I was informed [...] insists thatI need to refer her to [facility]. But my concern is such things do [...] rce(s) Supporting Document(s) ID Date Data Source [id number] 11/26/2020 02:11:00 PM EDT [address] [address] HEALTH PROGRESS NOTEPATIENT NAME: YARELI HATCH PHYSICIAN: BROOKLYN ONEILL MDAUTHOR: Surendra SMITH,P.ADM. DATE: 10/31/20 MR#: [id number] NOTE DATE: 11/26/20 RM#: 310EVALUATION TIME: 1411 is 20-year-old female, currently single, past psych historyof bipolar disorder, poor impulse control and borderline personality disorderChief complaint concern about her ability to maintain safety and possiblesuicidal thoughtsEvents Since Last EntryYareli was seen today along with the learning and development coordinator, Gloria, and a PAstudent from [facility]. She was irritated and angry today. She [...] be making S[facility] referrals to other [facility] also. Yareli continued to express her anger, [...] We are in pursuit of an appropriate [place] facility or a safe dischargeoption for her. Ji Ng is coming here tomorrow, to do an intake for afamily correction for her. Will also consider increasing her Zyprexa.Portions of this section were scribed by Shell Ariza on 11/26/20 at 1503DATE SIGNED: 11/26/20 Electronically SignedTIME SIGNED: 1507 BROOKLYN ONEILL MD Name Value Range Interpretation Code Description Data Stephanie rce(s) Supporting Document(s) ID Date Data Source [id number] 11/25/2020 02:44:00 PM EDT [address] HEALTH PROGRESS NOTEPATIENT NAME: YARELI HATCH CATTENGIOVANNY PHYSICIAN: BROOKLYN ONEILL MDAUTHOR: Surendra SMITH,P.ADM. DATE: 10/31/20 MR#: [id number] NOTE DATE: 11/25/20 RM#: 310EVALUATION TIME: 1444 is 20-year-old female, currently single, past psych historyof bipolar disorder, poor impulse control and borderline personality disorderChief complaint concern about her ability to maintain safety and possiblesuicidal thoughtsEvents Since Last EntryYareli was seen today along with the learning and development coordinator, Gloria, and a PAstudent from [facility]. She is doing the same. She does not show anysignificant improvement. Patient was informed that we are applying for [facility] for family care. I was [...] she has a history of being [place] [facility] [place] her childhood.Portions of this section were [...] further hospitalization. [facility] [place] [facility].Portions of this section were scribed by Shell Ariza on 11/25/20 at 1926DATE SIGNED: 11/25/20 Electronically SignedTIME SIGNED: 1934 BROOKLYN ONEILL MD Name Value Range Interpretation Code Description Data Stephanie rce(s) Supporting Document(s) ID Date Data Source [id number] 11/22/2020 10:16:00 AM EDT [facility] [place], [place] [address]MENTAL HEALTH PROGRESS NOTEPATIENT NAME: DAMARISYARELIZOIE YA PHYSICIAN: BROOKLYN ONEILL MDAUTHOR: Colleen SMITH,DhruvADM. DATE: 10/31/20 MR#: [id number] NOTE DATE: 11/22/20 RM#: 310EVALUATION TIME: 1018 [...] to go and she might go to [facility] down the road as well.Discussed with the learning and development coordinator about treatment plan that patient iscurrently [...] rce(s) Supporting Document(s) ID Date Data Source [id number] 11/21/2020 01:41:00 PM EDT [facility] HEALTH PROGRESS NOTEPATIENT NAME: YARELI HATCH PHYSICIAN: BROOKLYN ONEILL MDAUTHOR: Surendra SMITH,P.ADM. DATE: 10/31/20 MR#: [id number] NOTE DATE: 11/21/20 RM#: 310EVALUATION TIME: 1356 [...] [facility]. [facility] has been [...] unable to be [facility] many [facility] [place] [facility] [place] and then she signed out from thegroup home. Her prognosis remains guarded. She denied [...] be an appropriate candidate for 24hours supervised [place]. She is not making progress. Her providers are alsoworking on finding a different placement for her. Will increase her Zyprexa andpropranolol.Portions of this section were scribed by Shell Ariza on 11/21/20 at 1357DATE SIGNED: 11/21/20 Electronically SignedTIME SIGNED: 135 BROOKLYN ONEILL MD Name Value Range Interpretation Code Description Data Stephanie rce(s) Supporting Document(s) ID Date Data Source [id number] 11/20/2020 02:02:00 PM EDT [facility] [place] [id number] HEALTH PROGRESS NOTEPATIENT NAME: YARELI HATCH CATTENGIOVANNY PHYSICIAN: BROOKLYN ONEILL MDAUTHOR: Surendra SMITH,P.ADM. DATE: 10/31/20 MR#: [id number] NOTE DATE: 11/20/20 RM#: 310EVALUATION TIME: 1403 is 20-year-old female, currently single, past psych historyof bipolar disorder, poor impulse control and borderline personality disorderChief complaint concern about her ability to maintain safety and possiblesuicidal thoughtsEvents Since Last EntryYareli was seen today along with the learning and development coordinator, Gloria, and a PAstudent from [facility]. Patient states she is very stressed. Sheadmits [...] to "fight the [place]". [facility] [employer] as her primary [facility] and then she pursued with [employer] for her high school. She reports she has been tested for low IQ in earlyage.Topic of her placement came up. Patient states [facility]. She stated she has been allowed [...] Patient states she was kicked out from [facility] in [facility]; hence, she does not wish to [...] rce(s) Supporting Document(s) ID Date Data Source [id number] 11/19/2020 01:53:00 PM EDT [address] HEALTH PROGRESS NOTEPATIENT NAME: YARELI HATCH CATSALVADOR PHYSICIAN: BROOKLYN ONEILL MDAUTHOR: Surendra SMITH,P.ADM. DATE: 10/31/20 MR#: [id number] NOTE DATE: 11/19/20 RM#: 310EVALUATION TIME: 1354 is 20-year-old female, currently single, past psych historyof bipolar disorder, poor impulse control and borderline personality disorderChief complaint concern about her ability to maintain safety and possiblesuicidal thoughtsEvents Since Last EntryYareli was seen today along with the learning and development coordinator, Gloria, and a PAstudent from [facility]. Patient expressed her irritation and statedthat she [...] inquireabout the AOT and her placement in [place]. She expressed her irritationrelated to her placement issue. She stated, "you do not have to take care of me". The patient states if somehow, she gets AOT and is placed in [place], itwill still not work. The patient also [...] wait and then to get into a [place]. She has difficultyrealizing the fact it is [...] has the meeting with state like [facility]. Patientis not happy about it. I told her this is important because they are the majorresource, and they will guide us. She is not making progress.Portions of this section were scribed by Shell Ariza on 11/19/20 at 1820DATE SIGNED: 11/19/20 Electronically SignedTIME SIGNED: 1819 BROOKLYN ONEILL MD Name Value Range Interpretation Code Description Data Stephanie rce(s) Supporting Document(s) ID Date Data Source [id number] 11/18/2020 02:32:00 PM EDT [address] PROGRESS NOTEPATIENT NAME: YARELI HATCH CATSALVADOR PHYSICIAN: BROOKLYN ONEILL MDAUTHOR: Surendra SMITH,P.ADM. DATE: 10/31/20 MR#: [id number] NOTE DATE: 11/18/20 RM#: 310EVALUATION TIME: 1432 is 20-year-old female, currently single, past psych historyof bipolar disorder, poor impulse control and borderline personality disorderChief complaint concern about her ability to maintain safety and possiblesuicidal thoughtsEvents Since Last EntryYareli was seen today along with the learning and development coordinator, Gloria, and a PAstudent from [facility]. She is doing well today. She was [...] be send to [facility] and not to [facility]. Patient admitsto not having any compassion [...] has been declined by every agency [facility] with opening tostay. I am in the process of working with the AOT coordinator to arrange forgetting the AOT done for her. We really do not have anywhere to send here.Given the fact she was on restraints over the weekend and is on ryv-xw-ugaawckhizhrov because she put a pillow over her [...] at 1626DATE SIGNED: 11/18/20 Electronically SignedTIME SIGNED: 1739 BROOKLYN ONEILL MD Name Value Range Interpretation Code Description Data Stephanie rce(s) Supporting Document(s) ID Date Data Source [id number] 11/17/2020 11:21:00 PM EDT [address] [id number] NOTE FOLLOW UPPATIENT NAME: YARELI HATCH PHYSICIAN: BROOKLYN ONEILL MDAUTHOR: Dori SMITH,[facility]. DATE: 10/31/20 MR#: [id number] NOTE DATE: 11/17/20 RM#: 310EVALUATION TIME: 2323 [...] rce(s) Supporting Document(s) ID Date Data Source [id number] 11/15/2020 02:15:00 PM EDT [address] HEALTH PROGRESS NOTEPATIENT NAME: DENISSE HATCHZOIE YA PHYSICIAN: BROOKLYN ONEILL MDAUTHOR: Surendra SMITH,P.ADM. DATE: 10/31/20 MR#: [id number] NOTE DATE: 11/15/20 RM#: 310EVALUATION TIME: 1416 is 20-year-old female, currently single, past psych historyof bipolar disorder, poor impulse control and borderline personality disorderChief complaint concern about her ability to maintain safety and possiblesuicidal thoughtsEvents Since Last EntryYareli was seen today along with the learning and development coordinator, and a [facility]from [facility]. She is in a better mood today. [...] 98 11/15 1114B/P 119/81 11/15 1114Temp 97.8 05/07 1114Pulse 89 11/15 1114Resp 18 11/15 1114Current [...] treatment plan. we are awaiting information from [facility] for placement effortsPortions of this section were scribed by Shell Ariza on 11/15/20 at 1415DATE SIGNED: 11/15/20 Electronically SignedTIME SIGNED: 1417 BROOKLYN ONEILL MD Name Value Range Interpretation Code Description Data Stephanie rce(s) Supporting Document(s) ID Date Data Source [id number] 11/14/2020 07:41:00 PM EDT [facility] [place] [address] [address] HEALTH PROGRESS NOTEPATIENT NAME: [facility]: BROOKLYN ONEILL MDAUTHOR: Surendra SMITH,P.ADM. DATE: 10/31/20 MR#: [id number] NOTE DATE: 11/14/20 RM#: 310EVALUATION TIME: 1948 is 20-year-old female, currently single, past psych historyof bipolar disorder, poor impulse control and borderline personality disorderChief complaint concern about her ability to maintain safety and possiblesuicidal thoughtsEvents Since Last EntryYareli was seen today with learning and development coordinator Cata and a PA student. Sheseems to be in better mood today without any hostility or irritableness. Sheasked the same question, what is happening to her AOT. We advised her that theAOT is being pursued and Lorraine is checking with [facility] and she will get back tous. Ever since Zyprexa has been added her mood has improved. She wants to gothe community residence in [place]. The problem remains the uncertainty aboutwhen the [...] AOT as well as with [facility].Portions of this section were scribed by Shell Ariza on 11/14/20 at 1941DATE SIGNED: 11/14/20 Electronically SignedTIME SIGNED: 1948 BROOKLYN ONEILL MD Name Value Range Interpretation Code Description Data Stephanie rce(s) Supporting Document(s) ID Date Data Source [id number] 11/13/2020 04:22:00 PM EDT [place], [place] [address]MENTAL HEALTH PROGRESS NOTEPATIENT NAME: YARELI HATCH CATSALVADOR PHYSICIAN: BROOKLYN ONEILL MDAUTHOR: Surendra SMITH,P.ADM. DATE: 10/31/20 MR#: [id number] NOTE DATE: 11/13/20 RM#: 310EVALUATION TIME: 1625 is 20-year-old female, currently single, past psych historyof bipolar disorder, poor impulse control and borderline personality disorderChief complaint concern about her ability to maintain safety and possiblesuicidal thoughtsEvents Since Last EntryJelenaadrienne was seen today with the learning and development coordinator. She continues to notshow any insight. [...] an opening in a community residence in [place]. Her Thorazinehas been changed to 300 mg [...] rce(s) Supporting Document(s) ID Date Data Source [id number] 11/12/2020 08:02:00 PM EDT [facility] [place], [place] [address]MENTAL HEALTH PROGRESS NOTEPATIENT NAME: YARELI HATCH CATSALVADOR PHYSICIAN: BROOKLYN ONEILL MDAUTHOR: Surendra SMITH,P.ADM. DATE: 10/31/20 MR#: [id number] NOTE DATE: 11/12/20 RM#: 310EVALUATION TIME: 2007 [...] her intention to people whenever they address [place] and that she needs to tell them [...] 50 MG QHSPRN PRN POExaminationMusculoskeletalGait normalAdditional notesMental status:Yarlei Sierra continues to show continues to show [...] She has been approved for communityresidence in [place]. Will also work on her coping skill building.Portions of this section were scribed by Shell Ariza on 11/12/20 at 2002DATE SIGNED: 11/12/20 Electronically SignedTIME SIGNED: 2008 BROOKLYN ONEILL MD Name Value Range Interpretation Code Description Data Stephanie rce(s) Supporting Document(s) ID Date Data Source [id number] 11/12/2020 04:37:00 PM EDT [address] [id number] NOTE FOLLOW UPPATIENT NAME: DAMARISYARELI PHYSICIAN: BROOKLYN ONEILL MDAUTHOR: Jacque Chowdhury. DATE: 10/31/20 MR#: [id number] NOTE DATE: 11/12/20 RM#: [id number] TIME: 1641 [...] SIGNED: 11/12/20 Electronically SignedTIME SIGNED: 1641 THERESA COOPER Name Value Range Interpretation Code Description Data [facility] Supporting Document(s) ID Date Data Source [id number] 11/11/2020 07:43:00 AM EDT Joe Raegarry heaton Exam Number: [id number] Reported By: Maria De Jesus KIM M.D. Signed By: Rakan KIM M.D. Name Value Range Interpretation Code Description Data [facility] rce(s) Supporting Document(s) ID Date Data Source [id number] 11/10/2020 11:20:00 AM EDT [facility] [address] HEALTH PROGRESS NOTEPATIENT NAME: YARELI HATCH PHYSICIAN: BROOKLYN ONEILL MDAUTHOR: Colleen SMITH,DhruvADM. DATE: 10/31/20 MR#: [id number] NOTE DATE: 11/10/20 RM#: 310EVALUATION TIME: 1122 [...] rce(s) Supporting Document(s) ID Date Data Source [id number] 11/09/2020 11:20:00 AM EDT [address] HEALTH PROGRESS NOTEPATIENT NAME: YARELI HATCH PHYSICIAN: BROOKLYN ONEILL MDAUTHOR: Colleen SMITH,DhruvADM. DATE: 10/31/20 MR#: [id number] NOTE DATE: 11/09/20 RM#: 310EVALUATION TIME: 1121 [...] rce(s) Supporting Document(s) ID Date Data Source [id number] 11/08/2020 01:30:00 PM EDT [address] PROGRESS NOTEPATIENT NAME: DAMARISYARELI YA PHYSICIAN: BROOKLYN ONEILL MDAUTHOR: Surendra SMITH,P.ADM. DATE: 10/31/20 MR#: [id number] NOTE DATE: 11/08/20 RM#: 310EVALUATION TIME: 1334 Since Last EntryYareli was seen today along with the learning and development coordinator, [place], and a PAstudent from [facility]. She apologized for not coming to the [...] today. I authorized PRN injection for her. Tyler clearly indicates she lacks any impulse control and not thinkingcompletely. Lorraine was discussing with [facility] about further treatment options forher as Lorraine [...] rce(s) Supporting Document(s) ID Date Data Source [id number] 11/07/2020 03:12:00 PM EDT [address] PROGRESS NOTEPATIENT NAME: YARELI HATCH CATTENGIOVANNY PHYSICIAN: BROOKLYN ONEILL MDAUTHOR: Surendra SMITH,P.ADM. DATE: 10/31/20 MR#: [id number] NOTE DATE: 11/07/20 RM#: 310EVALUATION TIME: 1512 [...] rce(s) Supporting Document(s) ID Date Data Source [id number] 11/06/2020 01:30:00 PM EDT [address] HEALTH PROGRESS NOTEPATIENT NAME: YARELI HATCH CATTENDING PHYSICIAN: BROOKLYN ONEILL MDAUTHOR: Surendra SMITH,P.ADM. DATE: 10/31/20 MR#: [id number] NOTE DATE: 11/06/20 RM#: 310EVALUATION TIME: 1330 Since Last EntryYareli was seen today along with the learning and development coordinator, Golria, and a PAstudent from [facility]. She continues to be depressed. She is inbetter mood today. She was cooperative durin g the session. She answered all myquestions. Patient states she is forced to talk. She states she is barely ableto manage herself. When I counselor at law Yareli talk about her life and to [...] We have initiated AOT for her andLorraine Meadowskash have met with her.Portions of this section were scribed by Shell Ariza on 11/06/20 at 1454DATE SIGNED: 11/06/20 Electronically SignedTIME SIGNED: 1459 BROOKLYN ONEILL MD Name Value Range Interpretation Code Description Data Stephanie rce(s) Supporting Document(s) ID Date Data Source [id number] 11/05/2020 03:44:00 PM EDT [facility] [place] [id number] HEALTH PROGRESS NOTEPATIENT NAME: YARELI HATCH PHYSICIAN: BROOKLYN ONEILL MDAUTHOR: Surendra SMITH,P.ADM. DATE: 10/31/20 MR#: [id number] NOTE DATE: 11/05/20 RM#: 310EVALUATION TIME: 1546 Since Last EntryYareli was seen today along with the learning and development coordinator, [place], and a PAstudent from [facility]. She continues to be depressed. She has [...] rce(s) Supporting Document(s) ID Date Data Source [id number] 11/04/2020 09:38:00 AM EDT Joe [address] [address]JIHAXVK NAME: YARELI HATCH#: [id number] PHYSICIAN: BROOKLYN ONEILL MD ADM. DATE: 10/31/20PROGRESS NOTE DATE: 11/04/20 RM.#: 310ACCOUNT #: [id number] NOTEIDENTIFICATION: A 20-year-old female with schizoaffective disorder.VITAL SIGNS: Temperature of 97, pulse of 101, respirations 19, blood rimbmsnk955/79.SUBJECTIVE: The patient came to the interview room. [...] atthis point.Date Dictated: 11/04/2020 09:20:11Date Transcribed: 11/04/2020 08:38:16JV/PUSDelfino #: [id number]: 11/04/2020 Electronically SignedTRANS:11/04/2038 FILI CANELA MDTRANS BY:IATDATE SIGNED:11/04/20REPORT COPY TO: Name Value Range Interpretation Code Description Data Stephanie rce(s) Supporting Document(s) ID Date Data Source [id number] 11/03/2020 11:54:00 AM EDT [address] [address]GDTUHQY NAME: DAMARISYARELI Patel#: [id number] PHYSICIAN: BROOKLYN ONEILL MD ADM. DATE: 10/31/20PROGRESS NOTE DATE: 11/03/20 .#: 310ACCOUNT #: [id number] NOTEIDENTIFICATION: A 20-year-old female with schizoaffective disorder.VITAL [...] self mutilation.Date Dictated: 11/03/2020 09:56:45Date Transcribed: 11/03/2020 10:54:25JV/PUSJob #: [id number]: 11/03/20 0956 Electronically SignedTRANS:11/03/20 1154 FILI CANELA MDTRANS BY:IATDATE SIGNED:11/04/20REPORT COPY TO: Name Value Range Interpretation Code Description Data Stephanie rce(s) Supporting Document(s) ID Date Data Source [id number] 11/01/2020 10:43:00 AM EDT [address] [address]ZHKAYTI NAME: YARELI HATCH#: [id number] PHYSICIAN: BROOKLYN ONEILL MD ADM. DATE: 10/31/20ACCOUNT #: [id number] .#: [id number] ASSESSMENTIDENTIFICATION: A 20-year-old female with long history of schizoaffectivedisorder, cluster B personality disorder.CHIEF COMPLAINT: "I am suicidal."REASON FOR ADMISSION: Suicidal ideation.HISTORY OF PRESENT ILLNESS: According to the records and our interview, thepatient was discharged from our service 2 days ago, she was discharged ozgmrj46:00 in the morning. She was back in [...] She is living with a friendhere in [place]. The patient stated that she is a [...] 11/01/2020 10:19:56Date T ranscribed: 11/01/2020 09:43:52LEIGH/Erin #: [id number]: 11/01/20 1019 Electronically SignedTRANS:11/01/20 1043 FILI CANELA MDTRANS BY:KIERRA SIGNED:11/02/20REPORT COPY TO: Name Value Range Interpretation Code Description Data Stephanie rce(s) Supporting Document(s) ID Date Data Source [id number] 10/31/2020 07:04:00 PM EDT [address] [address]JVJQUYB AND PHYSICALPATIENT NAME: YARELI HATCH MR#: [id number] PHYSICIAN: BOGDAN MACIAS MDAUTHOR: Theresa Chowdhury DATE: [...] 17; Temp 98.3; Pulse Ox 96% ; ao7Depgfywy ExaminationGeneral Appearance no acute distress, afebrile, alertHead [...] rce(s) Supporting Document(s) ID Date Data Source [id number] 10/29/2020 10:26:00 PM EDT [facility] Name Value Range Interpretation Code Description Data Stephanie rce(s) Supporting Document(s) COVID-19, CORDELL NEGATIVE NEGATIVE N [facility] Methodology: Isothermal Nucleic Acid Amp [...] Emergency Use Authorization. ID Date Data Source [id number] 10/29/2020 09:38:25 PM EDT [facility] Name Value Range Interpretation Code Description Data [facility] rce(s) Supporting Document(s) Progress Note [facility] [id number] [facility] [file] [id number]= ID Date Data Source [id number] 10/29/2020 06:37:00 PM EDT [facility] Name Value Range Interpretation Code Description Data Stephanie rce(s) Supporting Document(s) SALICYLATE < 1.7 mg/dL 0.0-20.0 [facility] ID Date Data Source [id number] 10/29/2020 06:37:00 PM EDT [facility] [place] Name Value Range Interpretation Code Description Data Stephanie rce(s) Supporting Document(s) ACETAMINOPHEN > 2.0 ug/mL 0-30 [facility] ID Date Data Source [id number] 10/29/2020 06:37:00 PM EDT [facility] [place] Name Value Range Interpretation Code Description Data Stephanie rce(s) Supporting Document(s) HCG QUAL SERUM Negative Negative N [facility] l ID Date Data Source [id number] 10/29/2020 06:37:00 PM EDT [facility] [place] Name Value Range Interpretation Code Description Data Stephanie rce(s) Supporting Document(s) ETOH 0.000 g/dL NONE DETECTED N [facility] l NONE DETECTED ID Date Data Source [id number] 10/29/2020 06:37:00 PM EDT [facility] [place] Name Value Range Interpretation Code Description Data Stephanie rce(s) Supporting Document(s) GLU 109 mg/dL 70-110 [facility] Patients taking Sulfasalazine may have f alsely depressedGlucose levels. Patients taking Sulfapyridine may havefalsely elevated Glucose levels. Patients should be drawnfor Glucose before the initial administration of eitherdrug. BUN 17 mg/dL 7-23 [facility] CRE 0.658 mg/dL 0.500-1.300 [facility] GFR > 60 mL/min [facility] CHLORIDE 111 mmol/L 99-110 [facility] NA 142 mmol/L 136-147 [facility] POTASSIUM 4.1 mmol/L 3.5-5.1 [facility] TCO2 26 mmol/L 20-33 [facility] ANION GAP 9.1 10.0-20.0 [facility] CA 8.9 mg/dL 8.3-10.7 [facility] ALKALINE PHOS 121 U/L 45-117 [facility] TP 7.5 g/dL 6.0-7.8 [facility] ALB 3.8 g/dL 3.5-5.0 [facility] ESRD Dialysis patient Albumin reference range: 2.9-4.4 g/dL GL 3.7 g/dL 2.3-3.5 [facility] A/G 1.0 1.0-2.5 [facility] T. BILIRUBIN 0.2 mg/dL 0.1-1.1 [facility] The [employer] [place] Total Bilirubin is n ot recommended forpatients undergoing treatment with eltrombopag (Promacta)due to the potential for falsely elevated results. ALTI 49 U/L 6-54 [facility] Patients taking Sulfasalazine and/or Sul fapyridine may havefalsely depressed ALT levels. Patients should be drawn forALT before the initial administration of either drug. AST 26 U/L 6-38 [facility] Patients taking Sulfasalazine and/or Sul fapyridine may havefalsely depressed AST levels. Patients should be drawn forAST before the initial administration of either drug. ID Date Data Source [id number] 10/29/2020 05:54:00 PM EDT [facility] [place] Name Value Range Interpretation Code Description Data Stephanie rce(s) Supporting Document(s) WBC 7.63 x10E3/uL 4.0-10.5 [facility] RBC 4.24 x10E6/uL 4.20-5.40 [facility] Hemoglobin 12.8 g/dL 12.0-16.0 [facility] Hematocrit 37.6 % 37.0-47.0 [facility] MCV 88.7 fL 81.0-99.0 [facility] MCH 30.2 pg 27.0-31.0 [facility] MCHC 34.0 g/dL 32.7-35.6 [facility] RDW 12.3 % 11.5-14.0 [facility] Platelet count 211 x10E3/uL 150-450 [facility] ital MPV 9.6 fl 6.9-9.5 [facility] Neutrophils 57.8 % 34-64 [facility] Lymphocytes 32.9 % 25-45 [facility] Monocytes 7.2 % 1.7-10.6 [facility] Eosinophils 1.6 % 0.4-7.0 [facility] Basophils 0.1 % 0.1-2.0 [facility] Imm. Gran. 0.4 % 0.1-2.0 [facility] Abs. Neutro. 4.41 x10E3/uL 1.2-7.6 [facility] [place] Abs. Lymph. 2.51 x10E3/uL 1.0-3.5 [facility] Abs. [place]. 0.55 x10E3/uL 0.1-1.0 [facility] Abs. Eosin. 0.12 x10E3/uL 0.1-0.7 [facility] Abs. Baso. 0.01 x10E3/uL 0.0-0.1 [facility] Abs. Imm. Gran. 0.03 x10E3/uL 0.0-0.1 [facility] spital ANRBC% 0 % 0 [facility] ID Date Data Source [id number] 10/29/2020 06:28:00 PM EDT [facility] Name Value Range Interpretation Code Description Data Stephanie rce(s) Supporting Document(s) PCP VISTA NEG NEGATIVE [facility] MINIMUM LEVEL OF DETECTION IS 25 ng/ml BENZODIAZEPINES NEG NEGATIVE [facility] al MINIMUM LEVEL OF DETECTION IS 200 ng/ml COCAINE VISTA NEG NEGATIVE [facility] MINIMUM LEVEL OF DETECTION IS 300 ng/ml AMPHETAMINES NEG NEGATIVE [facility] al MINIMUM LEVEL OF DETECTION IS 1000 ng/ml BARBITURATES NEG NEGATIVE [facility] al CUTOFF CONCENTRATION IS 200 ng/ml CANNABINOIDS NEG NEGATIVE [facility] CUTOFF CONCENTRATION IS 50 ng/ml METHADONE VISTA NEG NEGATIVE [facility] al MINIMUM LEVEL OF DETECTION IS 300 ng/ml OPIATE VISTA NEG NEGATIVE [facility] MINIMUM DETECTION LEVEL IS 300 ng/ml ID Date Data Source [id number] 10/29/2020 05:57:00 PM EDT [facility] [place] Name Value Range Interpretation Code Description Data Stephanie rce(s) Supporting Document(s) URINE COLOR Yellow [facility] UAPR Turbid [facility] UGLU Negative NEGATIVE [facility] URINE BILIRUBIN [facility]IVE [facility] UKET Negative NEGATIVE [facility] USG 1.024 1.010-1.025 [facility] UBLO Negative NEGATIVE [facility] UpH 7.0 5.0-8.0 [facility] UPRO Negative Negative [facility] UUB 1.0 mg/dL 0.2-1.0 [facility] UNIT Negative Negative [facility] ULEU Negative Negative [facility] ID Date Data Source [id number] 10/31/2020 10:31:00 AM EDT [facility] Physician DocumentationClaxlexy-Naveen Hinkle edical CenterName: Yareli PatelvallAge: 20 yrsSex: FemaleDOB: 2000MRN: [id number] Date: 10/29/2020Time: 17:31Account#: [id number] MD:ED Physician Richie العليposition Summary:10/31/20 08:52Hospitalization OrderedHospitalization [...] presents to ER via [facility] to [facility] lr6gdxm complaints of Psych Problem.19:29 Patient comes the ER today for mental health evaluation. Patient was si7dqno in the ER for mental health on [...] Smoking status: Patient states was never smoker ofNeuro Hero. ETOH status Denies use of ETOH.- Advance [...] exhibiting self-injurious behavior in the ER not lr4ojotwdylmx to verbal de-escalation requiring chemical sedation. Averbal order was given for B-52 while I was busy with another issue.When I went to put the order in the computer, Haldol allergy poppedup however the medication was already given by the nurse. Patientclosely monitored for any evidence of allergic reaction..06:46 Data reviewed: vital signs, nurses notes, lab test result(s). ED yt1zdzonx: Care is endorsed to Dr. العلي at [...] continued to note aggressive behavior and started kx6ytacme verbal threats to staff including threatening to elope andhurt members of staff. After initial mechanical restraints wereremained as the patient did not improve, she regressed to this pointof concerned so the restraints were once again required. Richelle meade Geodon 20 mg by IM this time with better effect, seen restingcomfortably on most recent assessment.10/2016:35 Order name: Acetaminophen Level; Complete Time: 19:28 2017:35 Order name: CBC with diff; Complete Time: 19:28 :35 Order name: CMP; Complete Time: 19:28 :35 Order name: ETOH; Complete Time: 19:28 :35 Order name: Salicylate Level; Complete Time: 19:28 :35 Order name: Serum HCG Qualitative; Complete Time: 19:28 :35 Order name: Triage - Drug Screen; Complete Time: 19:28 2017:35 Order name: UA; Complete Time: 19:28 tl:02 Order name: EKG in Patient's Room tp:26 Order name: COVID-19 PROF; Complete Time: 04:83HYKP72:35 Order name: Diet - Mental Health Tray (call dietary); Complete Time: tlm21:0810/2016:35 Order name: Belongings List; Complete Time: 09:37 :35 Order name: Document Weight and Height for BMI; Complete Time: 09:37 tl:35 Order name: Mental Health Level 3; Complete Time: 09:37 :35 Order name: VS q shift; Complete Time: 21:08 :29 Order name: Medically Cleared for Eval by-Psychosocial, Theater Technician th4(.JIMY); Complete Time: :02 Order name: EKG.; Complete Time: 22:08 :24 Order name: Mental Health Level 4; Complete Time: 09:2 9 :54 Order name: Restrain Patient; Complete Time: 21:54 nd1Luktgesse Medications:10/2018:54 Drug: Seroquel - QUEtiapine 25 mg [quetiapine 25 mg tablet (1 tabs)] py1Clmef: PO;22:08 Follow up: Response: No adverse reaction tp4:38 Drug: B52 IM - (LORazepam 2 mg, diphenhydrAMINE 50 mg, Haloperidol bu9Czakfbl 5 mg) Route: IM; Site: right vastus [...] diphenhydrAMINE 50 mg [diphenhydramine 50 mg/mL injection kx3blhsbuxu (1 mL)] {Note: given for severe anxiety.} Route: IM; Site:right deltoid;20:25 Follow up: Response: No adverse reaction; No change in condition jw520:41 Drug: LORazepam 4 mg [lorazepam 2 mg/mL injection solution (2 mL)] jw5{Note: given for severe anxiety.} Route: IM; Site: left deltoid;21:14 Follow up: Response: No adverse reaction; Anxiety decreased jw504/0:32 CANCELLED (Duplicate Order): LORazepam 4 mg IM once dk200:40 Drug: Geodon 20 mg [ziprasidone 20 mg/mL (final concentration) qd4wybbqwavomgzz solution (1 mL)] Route: IM; Site: right [...] Rhythm is regular, Normal Sinus Rhythm. QRS jo8Tzzp is Normal. MN interval is normal. QRS interval is normal. QTinterval is normal. No Q waves. T waves are Normal. No ST changesnoted. Clinical impression: Normal ECG. Interpreted by me.Signatures:Dispatcher [employer] Елена Boogie RN RN klpMMagaly funk RN RN tlmElliott, Suzanne, MD MD seHowland, Todd, MD MD lf1JfcfiFortunato humphrey RN RN dw4OrbkohBreonna yu RN RN xu6CapmammAnoop valenzuela MD MD dk2DStacy zhou RN dh9Ljbcaxcqcjv: (The following items were deleted from the chart)10/2110:57 11:56 COVID-19 PROFILE+LAB ordered. OOZOFBPZ44/2200:32 00:10 LORazepam 4 mg IM once ordered. dk2 dk2 Name Value Range Interpretation Code Description Data Stephanie rce(s) Supporting Document(s) ID Date Data Source [id number] 10/31/2020 10:31:00 AM EDT [facility] [place] [facility] terName: Yareli Mejiage: 20 yrsSex: FemaleDOB: 2000MRN: [id number] Date: 10/29/2020Time: 17:31Account#: [id number] Willow SMITH:Diagnosis: Major depressive disorder, recurrent, unspecifiedPresentation:10/2016:31 [...] large of amount of people live,such as [facility], family care, [facility], etc? no. Have you traveledto a location with widespread or ongoing COVID-19 community spread [facility]? no Have you traveled internationally or hadcontact with someone that has traveled and has been ill in the past 3weeks? no Have you received the COVID vaccine? No. CommunicationSpeaks Hungarian? Yes, is preferred language. Communicable DiseaseScreen: Negative [...] Smoking status: Patient states was never smoker ofNeuro Hero. ETOH status Denies use of ETOH.- Advance [...] that the patient found a paper clip yu7vflseihogx on a "window"- she would not [facility]. She then got up from her bed and is pacing inhallway. MHW and PSA w/ patient keeping her in her room. She ispacing, made aware. PSA and I stripped room and removed allbelongings and looked under bed and mattress to ensure there were nomore items that pt was hiding from us.04:09 Reassessment: Patient appears in no apparent distress at this time. tp204:48 Reassessment: MHW and PSA reported that patient had been "digging and jf2mmjvfbmbjd herself" and despite constant redirection, MHW had tomanually hold wrists down to prevent her from doing this. She doeshave bilateral superficial scratches to her wrists w/o bleeding. A85ukjpbfzj ordered and given.05:26 Reassessment: repairer typewriter was called back to room by jimy- pt was still qz7kexrnchqig to dig at herself. She was verbally [...] room due to patient harming self by jj3bwudwopcbj self with her fingernails several attempts made to getpatient to stop, patient asked why she was doing this and she replied"because I'm depressed and anxious" patient offered medication tohelp with her severe anxiety and she accepted MD made aware ofsituation and order recieved..20:39 Reassessment: Patient continues to try to hurt self and report severe uc2fpfjfaq MD called to bedside to assess the situation and additionalmedications ordered..21:55 Reassessment: Despite all other interventions patient continues to jw5try to harm self MD notified and order received to place patient intorestraints at this time for safety.22:48 Reassessment: Patient appears in no apparent distress at this time. qy3Aemejoz released from restraints at 2245, patient reports [...] mattress placed on the floor for safety, venkatesh has stepped toward the door gesturing and [...] Not Completed. Intervention: Observation Level 3. [address] health consult is initiated at 20:30. Referral Information:Evaluation referral is generated by the patient himself / herself.The patient was referred for evaluation because expresses suici dalideations with the plan to hang her self or to overdose.20:57 Subjective: The patients chief complaint is Pt presents to the ED as sm8a walk in due to suicidal ideations. Pt was discharged from [facility] three hours before arriving to [...] inpatient mental health.She has been admitted at [facility], [facility], [facility], and [facility].Pt has a history of Bipolar, Major Depressive, Anxiety. She statesthat she does not take her medications constantly which continuedwhile she was inpatient. Pt reports that she [facility]. She will be seeing [...] reports history of anxiety, Bipolar Disorder, Depression, vx0crooxjy attempt: multiple by overdose Other: Borderline PersonalityDisorder. Mental Health Admissions: [facility]. [facility] Current Outpatient [...] patient status is not currently needed or lw1wedtdrgaqfc. Consultation: Psych MD informed of patient's status at21:00, ED MD notified of patients status at 21:17. Disposition:Medically cleared for disposition by Dr Argueta. Psychiatric Consultis performed by phone with Dr Macias The patient is to be transferredto bed available facility. Legal Status: Patient's legal status [facility]: 937. Commitment papers arecompleted. DSM-V DX [place] I diagnosis: Depression, Unspecified.Insurance Pre-Certification: Not Required. [facility] Admission Criteria:The patient is experiencing suicidal ideation. [...] referralhospital acceptance. The patient is not a tire servicer or militarydependent. [place] Suicide Severity Rating Scale: Suicidal IdeationRating 5; Intensity of Ideations Rating 25; Suicidal Behavior Rating1.10/2100:37 Narrative Pt was using her sheet and pillow case to wrap around her mo1dubl. Blankets and pillow case were removed. Pt [...] left arm. She has been redirected multiple nx2dswoq by PSA and sitter. Security is present. Pt is now currentlywaiting TV with both hands visible.03:58 Narrative Pt is laying down, watching TV. Sitter is present. Safety sm8is maintained.04:43 Narrative Pt started digging at her arm again. PSA and sitter had mp7zunptjyth to redirect the pt with no success. Nurse and MD was donn. B52 was given. Pt has a keisha on her left wrist and a smallermark on her right wrist. Both have been looked at by nurse.19:21 Narrative PSA role handed off to this repairer typewriter at 1900. sm804/2201:04 Narrative Since shift change at 1930 pt has been digging herself, yx1cgjiujenguo to leave, yelling and swearing, she has [...] kf09:33 Disposition: The patient is admitted to [facility] Patient report is kfgiven to Dylan Ribeiro RN. Legal Status: Patient's legal status willbe Emergency: 9.39. Commitment papers are completed. PT has beenprovided with a copy of her legal status and rights.Psych:10/2017:02 Subjective: Patient's mood is euphoric, Delusions are denied, tlmHallucinations are denied Having thoughts of suicide. Plan forsuicide is to overdose on drugs, [facility] she told them she [facility]'t [...] Observation Level Level 4 Sitter needed. Provider mk0Zktuvimv Nils Argueta MD Charge Nurse notified Breonna [...] armband on for positive identification. [facility] Bed in low position. Call light in reach.18:01 No Physician assisted procedures completed. Labs drawn. Collected by tlmlab. Urine collected. Clean catch specimen.19:13 No apparent distress. Psychosocial Theater Technician. tlm19:13 Sitter at bedside. tlm19:22 Nils Argueta MD is Attending Physician. th404/2108:18 Notified ED physician of other septic pump truck driver pt vomited would like tlmsomething, new orders [...] by Fortunato Mark, JOSE LUIS klp07:08 Елена Hugo RN is Primary Nurse. klp07:08 No apparent distress. [...] mg [quetiapine 25 mg tablet (1 tabs)] cw2Zpsjk: PO;22:08 Follow up: Response: No adverse reaction tp204/2104:38 Drug: B52 IM - (LORazepam 2 mg, diphenhydrAMINE 50 mg, Haloperidol sw8Ekgjvey 5 mg) Route: IM; Site: right vastus [...] diphenhydrAMINE 50 mg [diphenhydramine 50 mg/mL injection jk3mefyehvr (1 mL)] {Note: given for severe anxiety.} [...] 20 mg [ziprasidone 20 mg/mL (final concentration) cx6zqlndlvbixepv solution (1 mL)] Route: IM; Site: right [...] Psych accompanied by dena, with chart, Other [facility] officers x 210:30 Condition: stable.10:30 Instructed on need for admit.10:30 Discharge Assessment: Patient awake, alert and oriented x 3. Nocognitive and/or functional deficits noted. Patient verbalizedunderstanding of disposition instructions. Patient angry andinitially uncooperative Patient has no functional deficits.10:31 Patient left the ED. klpSignatures:Елена Hugo RN Magaly Groves RN RN tlmElliott, Suzanne, MD MD seDow, Wendy, RN RN wd1Knight, Kristin, RN JOSE LUIS rj0BdbxzurejZakia [place] PSA PSA kfHowland, Todd, MD MD se5KtwkvFortunato humphrey RN RN ni8OxiqyrBreonna Marie RN RN vn5FsnmraslUsha apple sh2ZpxorsfAnoop valenzuela MD bc9Csshmcpjbfa: (The following items were deleted from the [...] Patient reports history of anxiety, Bipolar Disorder, fp2Eyuukogooe, suicide attempt: multiple by overdose Mental HealthAdmissions: multiple admissions. Last was at [facility] 10/26/20 and wasdischarged today Current Outpati ent Mental Health Services: Therapist/ Agency: Darline/[facility]. Living Environment: Family / Home Support:poor The patient currently lives with his / her significant other,Wilmar Duenas. The patient is single. Detox / Rehab Admissions: None.Current Outpt Alcohol or Substance Abuse Services: None. sm80/4:55 04:48 Reassessment: MHW and PSA reported that patient had been tp2"digging and scratching herself" and despite constant intervention,MHW had to manually hold wrists down to prevent her from doing this.She does have bilateral superficial scratches to her wrists w/obleeding. B52 verbally ordered and given. tp223:55 22:48 Reassessment: Patient appears in no apparent distress at this gu4eojm. jw5 Name Value Range Interpretation Code Description Data Stephanie rce(s) Supporting Document(s) ID Date Data Source [id number] 10/28/2020 08:29:00 PM EDT [address] [address]TSXSMPA NAME: DAMARISYARELI#: [id number] PHYSICIAN: BROOKLYN ONEILL MDAOUNT #: [id number] ADM. DATE: 10/26/20PATIENT : 00 DISCH. DATE: [...] rce(s) Supporting Document(s) ID Date Data Source [id number] 10/28/2020 06:30:00 PM EDT [address] [address] PROGRESS NOTEPATIENT NAME: YARELI HATCH PHYSICIAN: BROOKLYN ONEILL MDAUTHOR: Surendra SMITH,P.ADM. DATE: 10/26/20 MR#: [id number] NOTE DATE: 10/28/20 RM#: [id number] TIME: 1830 , , female patient.CC/Hx Present IllnessPt states, "I was and I am feeling suicidal since last week". Reports [facility] and they didn't admit her so she came to [facility] with a friend and walked herself to the ED for an evaluation.Events Since Last EntryPatient was seen today to assess her improvement. The patient denies any SI/HI.She talked about her friend in [place] with whom she wants to live withuntil residence in [facility].Portions of this section were scribed by Shell Ariza on 10/28/20 at 1832ObjectiveVital SignsVital Signs-LastResult Date TimePulse Ox 98 10/28 1140B/P 122/83 10/28 1140Temp 97.5 10/28 1140Pulse 65 10/28 1140Resp 14 10/28 1140Current MedicationsMiscellaneous Read WFXZ44Z NAQuetiapine Fumarate (Seroquel) 25 MG 2000 POChlorpromazine [...] will be discharged tomorrow with services in [place].Portions of this section were scribed by Shell Ariza on 10/28/20 at 1830DATE SIGNED: 10/28/20 Electronically SignedTIME SIGNED: 1831 BROOKLYN ONEILL MD Name Value Range Interpretation Code Description Data Stephanie rce(s) Supporting Document(s) ID Date Data Source [id number] 10/28/2020 05:10:00 PM EDT [address] DISCHARGE SUMMARYPATIENT NAME: YARELI HATCH MR#: [id number] PHYSICIAN: BROOKLYN ONEILL MDAUTHOR: Surendra SMITH,P. DATE: 10/26/20 #: [id number] DATE:IctpwnkGhxsupivsgtvhu29-qwra-zjm, , female patient.Chief ComplaintPt states, "I was and I am feeling suicidal since last week". Reports she wentto [facility] last week and they didn't admit her [place] friend and walked herself to the ED for an evaluation.Reason for AdmissionIncreased depression and feeling suicidal. SIB, by scratching forearms with apencil when in-patient at [facility] in Aug.History of Presenting IllnessYareli is friendly, polite and cooperative today. Reports she feels saferwhen she is here in-patient. [facility] She didn't f/u with [...] HistoryHas been staying with a friend in [place] that she met while in the MHU.Abuse HistoryAdmits but doesn't discuss today.Legal HistoryCharged for disorderly conduct and harrassement but hasn't been to court yet.This involved staff during a restraint at [facility].Portions of this section were scribed by Shell Ariza on 10/28/20 at 1710[facility] CourseHospital CourseI saw her on Wednesday and then today. She talked about her multiple overdosesand that [facility] did not want to hospitalize her. [...] her. Shestates she has a friend in [place] and then wait until residence in [facility].Portions of this section were scribed by Shell Ariza on 10/28/20 at 1803DATE SIGNED: 10/28/20 Electronically SignedTIME SIGNED: 1808 BROOKLYN ONEILL MD Name Value Range Interpretation Code Description Data Stephanie rce(s) Supporting Document(s) ID Date Data Source [id number] 10/27/2020 10:23:00 AM EDT [address] PSYCHIATRIC ASSESSMENTPATIENT NAME: YARELI HATCH MR#: [id number] PHYSICIAN: BROOKLYN ONEILL MDAUTHOR: Frantz Wni DATE: 10/26/20 RM#: [id number], , female patient.Chief ComplaintPt states, "I was and I am feeling suicidal since last week". Reports she wentto [facility] last week and they didn't admit her so she came to [facility] with a friend and walked herself to the ED for an evaluation.Reason for AdmissionIncreased depression and feeling suicidal. SIB, by scratching forearms with apencil when in-patient at [facility] in Aug.History of Presenting IllnessYareli is friendly, polite and cooperative today. Reports she feels saferwhen she is here in-patient. [facility] She didn't f/u with her out-patient services and didn'tpick up her prescribed meds from the pharmacy. She reports she notices nodifference on or off her medications.Past Psych/Medical HistoryPsychiatric HistorySignificant psych historyMedical HistoryDeniesDrugs/Alcohol/Tobacco HistoryDeniesHome MedicationsSee Home Medication ListAllergiesCoded Allergies:haloperidol (From HALDOL) (06/15/20)risperidone (08/04/19)Family HistoryFamily history of mental health and substance use.Social HistoryHas been staying with a friend in [place] that she met while in the MHU.Abuse HistoryAdmits but doesn't discuss today.Legal HistoryCharged for disorderly conduct and harrassement but hasn't been to court yet.This involved staff during a restraint at [facility].ExamVital SignsVital Signs-LastResult Date TimePulse Ox 100 10/27 [...] (0.0 - 20.0 mg/dL) < 1.7 10/26 722Opiates Screen (NEGATIVE) NEG 10/26 0708Methadone Screen (NEGATIVE) NEG 10/27 707Acetaminophen (0 - 30 ug/mL) < 2.0 10/26 722Barbiturate Screen (NEGATIVE) NEG 10/26 07Phencyclidine Screen (NEGATIVE) NEG 10/26 0708Amphetamines Screen (NEGATIVE) NEG 10/26 0708Benzodiazepines (NEGATIVE) NEG 10/26 0708Cocaine Screen (NEGATIVE) NEG 10/26 07Cannabinoids (NEGATIVE) NEG 10/26 07Ethyl Alcohol (NONE DETECTED g/dL) 0.004 H 10/26 07UrinesUrine Color Yellow 10/26 07Urine Appearance Cloudy 10/26 07Urine pH (5.0 - 8.0) 6.0 10/26 07Ur Specific Randle (1.010 - 1.025) 1.027 H 10/26 07Urine Protein (Negative) Negative 04/17 0708Urine Ketones (NEGATIVE) Negative 10/26 0708Urine Blood (NEGATIVE) Negative 10/26 0708Urine Nitrite (Negative) Negative 10/26 0708Ur Bilirubin Confirm (NEGATIVE) Negative 10/26 07Urine Urobilinogen (0.2 - 1.0 mg/dL) 0.2 10/26 0708Urine Leukocytes (Negative) Negative 10/26 0708Urine Glucose (NEGATIVE) Negative 10/26 07Urine HCG, Qual (Negative) Negative 10/26 07Assessment/PlanDiagnosis1. Major [...] rce(s) Supporting Document(s) ID Date Data Source [id number] 10/26/2020 05:21:00 PM EDT [address] [address]IVGXTWZ AND PHYSICALPATIENT NAME: YARELI HATCH Janette MR#: [id number] PHYSICIAN: BROOKLYN ONEILL MDAUTHOR: Eliana Garcia DO DATE: 10/26/20 RM#: [id number] & PHYSICAL DATE: 10/26/20 : 00EVALUATION TIME: 173HistoryChief Complaint/Admit ReasonSuicidal ideationHistory of Presenting IllnessPatient is a 20 years old [facility] According to [...] headache, numbness.PsychReports: stress, suicidal ideation.ExamVital SignsVital Signs-24 HRS10/26206 1245Temp 97.8Pulse 116Resp 22B/P 131/82 134/79B/P MeanPulse Ox 96O2 DeliveryO2 Flow JpctTkZ3Afhcfgub ExaminationGeneral Appearance no acute distress, afebrile, alert, awake, conversant, facesymmetricalHead atraumatic, normocephalicNeck no swelling, suppleCardiovascular regular rate, no murmur, normal capillary refill, Positive S1and X0Hcsaogguncq clear to auscultation, no distress, aerating well, [...] bleeding or surrounding erythemanoted.Data ReviewLaboratory DataRecent Labs-48 hours10/[id number] 1641 0732ChemistrySodium (136 - 147 mmol/L) 143Potassium (3.5 [...] CloudyUrine pH (5.0 - 8.0) 6.0Ur Specific Randle (1.010 - 1.025) 1.027 HUrine Protein (Negative) NegativeUrine Ketones (NEGATIVE) NegativeUrine Blood (NEGATIVE) NegativeUrine Nitrite (Negative) NegativeUr Bilirubin Confirm (NEGATIVE) NegativeUrine Urobilinogen (0.2 - 1.0 mg/dL) 0.2Urine Leukocytes (Negative) NegativeUrine Glucose (NEGATIVE) NegativeUrine HCG, Qual (Negative) Ddpmbbvi90/922808HlisrjmqGBGKP-23 (CORDELL) (NEGATIVE) NEGATIVEAssessment/PlanDiagnosis/Problem1. Suicidal ideationA&P- Patient is [...] Name Value Range Interpretation Code Description Data [facility] rce(s) Supporting Document(s) ID Date Data Source [id number] 10/26/2020 11:14:00 AM EDT [facility] Name Value Range Interpretation Code Description Data [facility] Supporting Document(s) COVID-19, CORDELL NEGATIVE NEGATIVE [facility] Methodology: Isothermal Nucleic Acid Amp [...] Emergency Use Authorization. ID Date Data Source [id number] 10/26/2020 07:42:00 AM EDT [facility] Name Value Range Interpretation Code Description Data [facility] Supporting Document(s) WBC 8.10 x10E3/uL 4.0-10.5 [facility] RBC 4.37 x10E6/uL 4.20-5.40 [facility] Hemoglobin 13.2 g/dL 12.0-16.0 [facility] Hematocrit 39.2 % 37.0-47.0 [facility] MCV 89.7 fL 81.0-99.0 [facility] MCH 30.2 pg 27.0-31.0 [facility] MCHC 33.7 g/dL 32.7-35.6 [facility] RDW 11.9 % 11.5-14.0 [facility] Platelet count 204 x10E3/uL 150-450 [facility] MPV 9.6 fl 6.9-9.5 [facility] Neutrophils 67.3 % 34-64 [facility] Lymphocytes 23.3 % 25-45 [facility] Monocytes 7.3 % 1.7-10.6 [facility] Eosinophils 1.5 % 0.4-7.0 [facility] Basophils 0.1 % 0.1-2.0 [facility] Imm. Gran. 0.5 % 0.1-2.0 [facility] Abs. Neutro. 5.45 x10E3/uL 1.2-7.6 [facility] Abs. Lymph. 1.89 x10E3/uL 1.0-3.5 [facility] Abs. [place]. 0.59 x10E3/uL 0.1-1.0 [facility] Abs. Eosin. 0.12 x10E3/uL 0.1-0.7 [facility] Abs. Baso. 0.01 x10E3/uL 0.0-0.1 [facility] Abs. Imm. Gran. 0.04 x10E3/uL 0.0-0.1 N [facility] spital ANRBC% 0 % 0 [facility] ID Date Data Source [id number] 10/26/2020 08:20:00 AM EDT [facility] Name Value Range Interpretation Code Description Data Stephanie rce(s) Supporting Document(s) SALICYLATE < 1.7 mg/dL 0.0-20.0 [facility] ID Date Data Source [id number] 10/26/2020 08:20:00 AM EDT [facility] Name Value Range Interpretation Code Description Data Stephanie rce(s) Supporting Document(s) ACETAMINOPHEN < 2.0 ug/mL 0-30 [facility] ID Date Data Source [id number] 10/26/2020 08:20:00 AM EDT [facility] Name Value Range Interpretation Code Description Data Stephanie rce(s) Supporting Document(s) ETOH 0.004 g/dL NONE DETECTED [facility] ID Date Data Source [id number] 10/26/2020 08:20:00 AM EDT [facility] Name Value Range Interpretation Code Description Data Stephanie rce(s) Supporting Document(s) GLU 106 mg/dL 70-110 [facility] Patients taking Sulfasalazine may have f alsely depressedGlucose levels. Patients taking Sulfapyridine may havefalsely elevated Glucose levels. Patients should be drawnfor Glucose before the initial administration of eitherdrug. BUN 19 mg/dL 7-23 [facility] CRE 0.729 mg/dL 0.500-1.300 [facility] GFR > 60 mL/min [facility] CHLORIDE 111 mmol/L 99-110 [facility] NA 143 mmol/L 136-147 [facility] POTASSIUM 3.6 mmol/L 3.5-5.1 [facility] TCO2 23 mmol/L 20-33 [facility] ANION GAP 12.6 10.0-20.0 [facility] CA 8.9 mg/dL 8.3-10.7 [facility] ALKALINE PHOS 112 U/L 45-117 [facility] TP 7.4 g/dL 6.0-7.8 [facility] ALB 4.0 g/dL 3.5-5.0 [facility] ESRD Dialysis patient Albumin reference range: 2.9-4.4 g/dL GL 3.4 g/dL 2.3-3.5 [facility] A/G 1.2 1.0-2.5 [facility] T. BILIRUBIN 0.3 mg/dL 0.1-1.1 [facility] [employer] [place] Total Bilirubin is n ot recommended forpatients undergoing treatment with eltrombopag (Promacta)due to the potential for falsely elevated results. ALTI 41 U/L 6-54 [facility] Patients taking Sulfasalazine and/or Sul fapyridine may havefalsely depressed ALT levels. Patients should be drawn forALT before the initial administration of either drug. AST 15 U/L 6-38 [facility] Patients taking Sulfasalazine and/or Sul fapyridine may havefalsely depressed AST levels. Patients should be drawn forAST before the initial administration of either drug. ID Date Data Source [id number] 10/26/2020 07:29:00 AM EDT [facility] Name Value Range Interpretation Code Description Data Stephanie rce(s) Supporting Document(s) URINE COLOR Yellow [facility] UAPR Cloudy [facility] UGLU Negative NEGATIVE [facility] URINE BILIRUBIN [facility] Negative NEGATIVE [facility] USG 1.027 1.010-1.025 [facility] UBLO Negative NEGATIVE [facility] UpH 6.0 5.0-8.0 [facility] UPRO Negative Negative [facility] UUB 0.2 mg/dL 0.2-1.0 [facility] UNIT Negative Negative [facility] ULEU Negative Negative [facility] ID Date Data Source [id number] 10/26/2020 07:41:00 AM EDT [facility] [place] Name Value Range Interpretation Code Description Data Stephanie rce(s) Supporting Document(s) PCP VISTA NEG NEGATIVE [facility] MINIMUM LEVEL OF DETECTION IS 25 ng/ml BENZODIAZEPINES NEG NEGATIVE [facility] MINIMUM LEVEL OF DETECTION IS 200 ng/ml COCAINE VISTA NEG NEGATIVE [facility] MINIMUM LEVEL OF DETECTION IS 300 ng/ml AMPHETAMINES NEG NEGATIVE [facility] al MINIMUM LEVEL OF DETECTION IS 1000 ng/ml BARBITURATES NEG NEGATIVE [facility] CUTOFF CONCENTRATION IS 200 ng/ml CANNABINOIDS NEG NEGATIVE [facility] CUTOFF CONCENTRATION IS 50 ng/ml METHADONE VISTA NEG NEGATIVE [facility] al MINIMUM LEVEL OF DETECTION IS 300 ng/ml OPIATE VISTA NEG NEGATIVE [facility] MINIMUM DETECTION LEVEL IS 300 ng/ml ID Date Data Source [id number] 10/26/2020 07:29:00 AM EDT [facility] Name Value Range Interpretation Code Description Data Stephanie rce(s) Supporting Document(s) HCG QUAL URINE Negative Negative [facility] ID Date Data Source [id number] 10/26/2020 11:54:00 AM EDT [facility] Physician DocumentationClaxton-Naveen Hinkle edical CenterName: Yareli DuvallAge: 20 yrsSex: FemaleDOB: 2000MRN: [id number] Date: 10/26/2020Time: 06:59Account#: [id number] MD: NONE, - Per PatientED Physician Latrice [...] recently seen aphysician. 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:07:04 LMP N/A - Irregular menses wu7Zgxpdcndpd:- Allergies: Haldol; RISPERIDONE;- PMHx: ADHD; ANXIETY; BIPOLAR [...] Complete Time: 08:49 jw5047:06 Order name: Glucose jw504:06 Order name: Salicylate Level; Complete Time: 08:49 [...] and Height for BMI; Complete Time: 07:45 jw504/1710:41 Order name: COVID-19 PROFILE+LAB; Complete Time: 15:53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 [place]. Pt reportsgoing to the crisis center almost [...] a young age. Ptwas [facility] May 2020.Current Outpatient Mental Health Services: Psychiatrist / Agency:[facility] in [place]. Therapist / Agency: Hilda/ Мария. Living Environment: Family / Home Support: Poor. Ptreports no contact with adoptive family. Has minimal contact withbiological parents; states "they don't accept me". The patientcurrently lives "homeless". Had been in supportive housing/ communityresidence in [place].03:24 Patient presents to Emergency Department with the [...] Dr Canela. [facility] Patientreport is given to Malu Bowman RN. Legal Status: Patient's legalstatus will be Emergency: 9.39. Commitment papers are completed. Pthas been provided with a copy of legal status and rights.04:09 DSM-V DX [place] I diagnosis: Bipolar D/O, Unspecified. gr04:09 Insurance Pre-Certification: Not Required. [facility] Admission Criteria: grThe patient is experiencing suicidal [...] psychoactivemedications or significant dosage adjustments. [facility] Transition of care to Pt will be transferred to M[facility] by [facility] andsecurity. The patient is not a tire servicer or dependent.[place] Suicide Severity Rating Scale: Suicidal Ideation Rating 5;Intensity of Ideations Rating 25; Suicidal Behavior Rating 1.Psych:01:51 Subjective: Patient's mood is sad, hopeless, Delusions are denied, id5Jcjkemmoqaupnk are denied Having thoughts of suicide. Plan forsuicide is to strangle self or overdose on medications. Objective:Patient is cooperative, Speech is normal, Affect is appropriate,Patient has mutilated themselves by superficial cuts to left arm.02:04 Interventions: Removed personal items and placed in bag. Patient dv3tcuowi in hospital gown. Searched person for dangerous [...] armband on for positive identification. Placed in ee8gwza. Bed in low position. Sitter at bedside.Administered Medications:No medications were administeredOutcome:04:14 Decision to Hospitalize by Provider. th405:25 Disposition: Admitted to Psych cm405:25 Condition: stable.05:25 Instructed on need for admit.05:25 Discharge Assessment: Patient verbalized understanding of dispositioninstructions. Patient has no functional deficits.05:47 Patient left the ED. vn5Wswkwujhod:Rose Paulino, PSA PSA Nils Berrios MD MD ft9DhuqjFortunato humphrey, JOSE LUIS RN xl6Bpmmrpojx, Wendy, RN RN cm4 Name Value Range Interpretation Code Description Data Stephanie rce(s) Supporting Document(s) ID Date Data Source [id number] 05/16/2020 01:20:00 PM EST [facility] [address] DISCHARGE SUMMARYPATIENT NAME: YARELI HATCH MR#: [id number] PHYSICIAN: BOGDAN MACIAS MDAUTHOR: Bogdan Macias MD DATE: 02/15/20 RM#: [id number] DATE:HistoryIdentificationPatient is 19-year-old female, currently single, lives in a motel,past psych history of bipolar disorderChief ComplaintThe patient was referred for evaluation because pt having suicidal ideations.History of Presenting IllnessInformation from emergency room,The patients chief complaint is Pt [facility] ED as sm8 a walk in for suicidal ideations with the plan to eitheroverdose or jump in traffic. [place] aftersigning her self out of [facility] in November of 2019. Pt reports she called a cab herselfto bring her here. Pt states she was inpatient at [facility] for a month and wasdischarged yesterday. [...] is allergic to Haldol but thedoctor in [facility] had put her on the medication any ways. Pt reports ahistory of bipolar, borderline personality disorder, and gender identitydisorder. Pt has a [facility] to [facility] 12/02/2019. Pt reports when recently hada suicide attempt a few days after being dicharged from [facility] last, she statedshe had overdosed [...] arrangement as she [facility] for the [...] out regarding staying in a motelin the [facility] as she signed herself out from [facility] on November 2019. Patientstated that she [...] [facility] to different places [facility] as [facility]. Later on patient [...] forward to fill out some paperwork at [facility] as well. She alsoappreciated the service that [...] the following new medications:Loratadine* (Claritin*) 10 MG [id number] MILLIGRAM Orally DAILYQty = 14Refills = 1TOPIRAMATE (TOPAMAX) 25 MG [id number] MILLIGRAM Orally TWICE DAILYQty = 20Refills = 1Fluoxetine* (Prozac*) 20 MG [id number] MILLIGRAM Orally DAILYQty = 20Refills = 1HydrOXYzine (Atarax*) 50 MG BJSFGVI02 MILLIGRAM Orally TWICE DAILY as needed for AnxietyQty = 20Refills = 1ARIPIPRAZOLE (ABILIEVELIO MAINTENA) 400 MG SUSER.LDZY597 MILLIGRAM Intramuscularly T01ELqe = 1No RefillsInstruction s:Last IM injection received on May 03, 2020Discharge Activity: As toleratedDischarge diet: Low Fat/Low CholesterolFollow-upFollow up with your Primary care physicianFollow-up with therapist and psychiatrist as recommendedAlso recommended outpatient chemical dependencyReferralsOrdered ReferralsOphthalmology 07/23/20In person eye appointment at [facility] ([phone])located at [address] in [place] July 23 at 11:30 am.Internal Medicine 06/03/20In person primary care appointment [facility] ([phone]) located at [address] [place] [address] in [place] on June 03 at 2:00 pm with [facility] [address] [facility] ([phone][facility] at 2:00 pm with HildaBao will need to attend thisappointment in order to receive herAbilify Maintenna injection on 05/31.[facility] [place] [address] In person appointment at [facility] ([phone])located at [address] in [place] onMay 29 at 11:00 amwith Yareli will need to attendthis appointment in order to receive herAbilify Maintenna injection on 05/31.DATE SIGNED: 05/16/20 Electronically SignedTIME SIGNED: 1326 BOGDAN MACIAS MD Name Value Range Interpretation Code Description Data Stephanie rce(s) Supporting Document(s) ID Date Data Source [id number] 05/16/2020 09:41:00 AM EST [address] [address]UDDAEUS NAME: DENISSE HATCHZOIE Jensen#: [id number] PHYSICIAN: HUBER VELAZQUEZ #: [id number] ADM. DATE: 02/15/20PATIENT : 00 DISCH. DATE: [50}DISCHARGE SUMMARYMHU discharge planNicotine Replacement TherapySmoking Status Never smokerPrescribed at discharge Rx not [facility]/Drug DisorderAlcohol or Drug Disorder counseling prescribedPersonal Care InstructionsDischarge Activity: As toleratedDischarge diet: Low Fat/Low CholesterolFollow Up CareFollow Up:Follow up with your Primary care physicianFollow-up with therapist and psychiatrist as recommendedAlso recommended outpatient chemical dependencyPriority ItemsUrgent/Important items t hat need to be addressed at primary care follow-upappointmentDischarge InformationDISCHARGE INFORMATION* Thank you for [facility] and allowing us toserve you* Our Goal is to provide the highest quality of care.* This discharge information is to help you better understand your diagnosisand medication* Avoid taking ymhg-jer-plslwmp medicines unless approved by your physician.* Take your medications as prescribed. DO NOT stop any medications unlessapproved first* Weigh yourself daily. Report any gain of 5 lbs in a week* 24 Hour Crisis HOTLINE available: Call Reachout at [phone]* Chem. Dependency: Walk in [facility] ([phone]) and [place] ([phone]) anytime Wednesday thru Wednesday 8 to 10am. [place] ([phone]) anytimeMond thru Wednesday 8 to 10am. [facility] ([phone]) Wednesday or Wednesday from 8to 10am (Bring $30 to [facility]) SMOKIN G CESSATION* Smoking is dangerous to your health. It delays the healing process, andworks against your medications. Not smoking will improve your health* Our hospital participates with the Opt-to-Quit program. You will be contactedafter discharge by the [facility] Smoker's Quitline for support with tobaccocessation. You have the option once contacted to refuse this service.* You can also go online to www.[employer]. Free nicotine replacementsare available ___Attention* You should [...] SignedTRANS:05/16/20940 BOGDAN MACIAS MDTRANS BY:DATE SIGNED:05/16/20TIME SIGNED: 0942REPORT COPY TO: Name Value Range Interpretation Code Description Data Stephanie rce(s) Supporting Document(s) ID Date Data Source [id number] 05/15/2020 01:17:00 PM EST [facility] [address] HEALTH PROGRESS NOTEPATIENT NAME: YARELI HATCH PHYSICIAN: BOGDAN MACIAS MDAUTHOR: Colleen SMITH,DhruvADM. DATE: 02/15/20 MR#: [id number] NOTE DATE: 05/15/20 RM#: [id number] TIME: 1319 [...] rce(s) Supporting Document(s) ID Date Data Source [id number] 05/14/2020 11:49:00 AM EST [address] HEALTH PROGRESS NOTEPATIENT NAME: YARELI HATCH CATSALVADOR PHYSICIAN: BOGDAN MACIAS MDAUTHOR: Colleen SMITH,DhruvADM. DATE: 02/15/20 MR#: [id number] NOTE DATE: 05/14/20 RM#: [id number] TIME: 1151 [...] rce(s) Supporting Document(s) ID Date Data Source [id number] 05/13/2020 01:19:[address] HEALTH PROGRESS NOTEPATIENT NAME: YARELI HATCH PHYSICIAN: BOGDAN MACIAS MDAUTHOR: Colleen SMITH,DhruvADM. DATE: 02/15/20 MR#: [id number] NOTE DATE: 05/13/20 RM#: [id number] TIME: 1322 [...] QHSPRN PRN POExaminationMusculoskeletalGait normalStation normalResultsLaboratory DataRecent Labs-24 hours11/108166JpzurgthECVNQ-57 (CORDELL) PendingResults Ordered/ReviewedLab Tests reviewedAssessment/PlanDiagnosis1. Major depressive disorderStatus Acute2. Bipolar affective disorder3. Borderline personality disor derCoordination of care provided with nursing staff, treatment team, social work,physician's, familyRisk/benefits discussed side effectsJustification for continued stay danger to self/othersDATE SIGNED: 05/13/20 Electronically SignedTIME SIGNED: 1322 BOGDAN MACIAS MD Name Value Range Interpretation Code Description Data Stephanie rce(s) Supporting Document(s) ID Date Data Source [id number] 05/13/2020 11:14:00 AM EST [facility] Name Value Range Interpretation Code Description Data Stephanie rce(s) Supporting Document(s) SARS coronavirus 2 RNA [facility] This lab was ordered by [facility] and reported by [facility]. ID Date Data Source [id number] 05/14/2020 04:07:00 PM EST [facility] [place] Performed at: RN - [facility] [place] [id number] Director: Samira Cortez MD, Phone: [phone] Name Value Range Interpretation Code Description Data Stephanie rce(s) Supporting Document(s) SARS-CoV-2, CORDELL Not Detected Not Detected [facility] This nucleic acid amplification test [...] Acid Amplification (CORDELL) ID Date Data Source [id number] 05/10/2020 11:10:00 AM EDT [place] [address]MENTAL HEALTH PROGRESS NOTEPATIENT NAME: YARELI HATCH PHYSICIAN: BOGDAN MACIAS MDAUTHOR: Colleen SMITH,Sarahy. DATE: 02/15/20 MR#: [id number] NOTE DATE: 05/10/20 RM#: [id number] TIME: 1113 [...] 05/10 0723Pulse Ox 99 05/09 1233B/P 121/78 10/29 1233Pulse 77 05/09 1233Resp 17 05/09 1233Current [...] QHSPRN PRN POExaminationMusculoskeletalGait normalStation normalResultsLaboratory DataRecent Labs-24 hours10/953281BbcxfeipsUoyiul (136 - 147 mmol/L) 141Potassium (3.5 - [...] Value Range Interpretation Code Description Data Stephanie [facility](s) Supporting Document(s) ID Date Data Source [id number] 05/09/2020 05:28:00 PM EDT [facility] Name Value Range Interpretation Code Description Data [facility](s) Supporting Document(s) GLU 80 mg/dL 70-110 [facility] Patients taking Sulfasalazine may have f alsely depressedGlucose levels. Patients taking Sulfapyridine may havefalsely elevated Glucose levels. Patients should be drawnfor Glucose before the initial administration of eitherdrug. BUN 12 mg/dL 7-23 [facility] CRE 0.502 mg/dL 0.500-1.300 [facility] CHLORIDE 109 mmol/L 99-110 [facility] NA 141 mmol/L 136-147 [facility] POTASSIUM 4.5 mmol/L 3.5-5.1 [facility] TCO2 26 mmol/L 20-33 [facility] ANION GAP 10.5 10.0-20.0 [facility] CA 9.1 mg/dL 8.3-10.7 [facility] ALKALINE PHOS 142 U/L 82-169 [facility] TP 7.7 g/dL 6.0-7.8 [facility] ALB 4.0 g/dL 3.5-5.0 [facility] ESRD Dialysis patient Albumin reference range: 2.9-4.4 g/dL GL 3.7 g/dL 2.3-3.5 [facility] A/G 1.1 1.0-2.5 [facility] T. BILIRUBIN 0.4 mg/dL 0.1-1.1 [facility] The [employer] [place] Total Bilirubin is n ot recommended forpatients undergoing treatment with eltrombopag (Promacta)due to the potential for falsely elevated results. ALTI 57 U/L 6-54 H [facility] Patients taking Sulfasalazine and/or Sul fapyridine may havefalsely depressed ALT levels. Patients should be drawn forALT before the initial administration of either drug. AST 30 U/L 6-38 [facility] Patients taking Sulfasalazine and/or Sul fapyridine may havefalsely depressed AST levels. Patients should be drawn forAST before the initial administration of either drug. ID Date Data Source [id number] 05/09/2020 05:00:00 PM EDT [facility] [place] Name Value Range Interpretation Code Description Data Stephanie rce(s) Supporting Document(s) WBC 7.62 x10E3/uL 4.0-10.5 N [facility] RBC 4.40 x10E6/uL 4.20-5.40 [facility] Hemoglobin 12.7 g/dL 12.0-16.0 [facility] Hematocrit 38.7 % 37.0-47.0 [facility] MCV 88.0 fL 81.0-99.0 [facility] MCH 28.9 pg 27.0-31.0 [facility] MCHC 32.8 g/dL 32.7-35.6 [facility] RDW 12.7 % 11.5-14.0 [facility] Platelet count 254 x10E3/uL 150-450 [facility] ital MPV 9.9 fl 6.9-9.5 H [facility] Neutrophils 58.1 % 34-64 [facility] Lymphocytes 34.1 % 25-45 N [facility] Monocytes 6.4 % 1.7-10.6 [facility] Eosinophils 0.9 % 0.4-7.0 [facility] Basophils 0.1 % 0.1-2.0 [facility] Imm. Gran. 0.4 % 0.1-2.0 [facility] Abs. Neutro. 4.42 x10E3/uL 1.2-7.6 [facility] [place] Abs. Lymph. 2.60 x10E3/uL 1.0-3.5 [facility] Abs. [place]. 0.49 x10E3/uL 0.1-1.0 [facility] Abs. Eosin. 0.07 x10E3/uL 0.1-0.7 [facility] Abs. Baso. 0.01 x10E3/uL 0.0-0.1 [facility] Abs. Imm. Gran. 0.03 x10E3/uL 0.0-0.1 [facility] ANRBC% 0 % 0 [facility] ID Date Data Source [id number] 05/09/2020 01:04:00 PM EDT [facility] [place], [place] [address] [facility] PROGRESS NOTEPATIENT NAME: YARELI HATCH PHYSICIAN: BOGDAN MACIAS, MDAUTHOR: Colleen SMITH,Sarahy. DATE: 02/15/20 MR#: [id number] NOTE DATE: 05/09/20 RM#: [id number] TIME: 1307 [...] to self/othersDATE SIGNED: 05/09/20 Electronically SignedTIME SIGNED: 1160 BOGDAN MACIAS MD Name Value Range Interpretation Code Description Data Stephanie rce(s) Supporting Document(s) ID Date Data Source [id number] 05/08/2020 12:46:00 PM EDT [address] HEALTH PROGRESS NOTEPATIENT NAME: YARELI HATCH PHYSICIAN: BOGDAN MACIAS MDAUTHOR: Colleen SMITH,DhruvADM. DATE: 02/15/20 MR#: [id number] NOTE DATE: 05/08/20 RM#: [id number] TIME: 1248 [...] rce(s) Supporting Document(s) ID Date Data Source [id number] 05/07/2020 01:49:00 PM EDT [address] HEALTH PROGRESS NOTEPATIENT NAME: YARELI HATCH PHYSICIAN: BOGDAN MACIAS MDAUTHOR: Colleen SMITH,DhruvADM. DATE: 02/15/20 MR#: [id number] NOTE DATE: 05/07/20 RM#: [id number] TIME: 1351 [...] rce(s) Supporting Document(s) ID Date Data Source [id number] 05/06/2020 01:32:00 PM EDT [facility] [place] [address]AL HEALTH PROGRESS NOTEPATIENT NAME: YARELI HATCH PHYSICIAN: BOGDAN MACIAS MDAUTHOR: Colleen SMITH,DhruvADM. DATE: 02/15/20 MR#: [id number] NOTE DATE: 05/06/20 RM#: [id number] TIME: 1335 is 19-year-old female, currently single, lives in a motel,past psych history of bipolar disorderCC/Hx Present IllnessThe patient was referred for evaluation because pt having suicidal ideations.Events Since Last EntryPatient was seen along with sitter as well as learning and development coordinator on otherside, patient was resting comfortable, [...] rce(s) Supporting Document(s) ID Date Data Source [id number] 05/05/2020 11:49:00 PM EDT [address] [address]AEAUWUNJ NOTE FOLLOW UPPATIENT NAME: YARELI HATCH PHYSICIAN: BOGDAN MACIAS MDAUTHOR: Dori SMITH,[facility]. DATE: 02/15/20 MR#: [id number] NOTE DATE: 05/05/20 #: [id number] TIME: 0014 : 00Progress Note Follow [...] deteriorates patientwill be transferred to the inpatient MedSurg for further management.DATE SIGNED: 05/06/20 Electronically SignedTIME SIGNED: 001 NEIL YUSUF MD Name Value Range Interpretation Code Description Data Stephanie rce(s) Supporting Document(s) ID Date Data Source [id number] 05/05/2020 02:12:00 AM EDT [facility] Name Value Range Interpretation Code Description Data Stephanie rce(s) Supporting Document(s) MAGNESIUM 2.2 mg/dL 1.6-2.6 N [facility] ID Date Data Source [id number] 05/05/2020 02:12:00 AM EDT [facility] Name Value Range Interpretation Code Description Data Stephanie rce(s) Supporting Document(s) ALLEN 4.5 mg/dL 2.5-4.5 N [facility] ID Date Data Source [id number] 05/05/2020 02:12:00 AM EDT [facility] Name Value Range Interpretation Code Description Data Stephanie rce(s) Supporting Document(s) GLU 97 mg/dL 70-110 [facility] Patients taking Sulfasalazine may have f alsely depressedGlucose levels. Patients taking Sulfapyridine may havefalsely elevated Glucose levels. Patients should be drawnfor Glucose before the initial administration of eitherdrug. BUN 18 mg/dL 7-23 [facility] CRE 0.571 mg/dL 0.500-1.300 [facility] CHLORIDE 109 mmol/L 99-110 [facility] NA 142 mmol/L 136-147 [facility] POTASSIUM 4.3 mmol/L 3.5-5.1 [facility] TCO2 27 mmol/L 20-33 [facility] ANION GAP 10.3 10.0-20.0 [facility] CA 8.7 mg/dL 8.3-10.7 [facility] ALKALINE PHOS 126 U/L 82-169 [facility] TP 7.1 g/dL 6.0-7.8 [facility] ALB 3.6 g/dL 3.5-5.0 [facility] ESRD Dialysis patient Albumin reference range: 2.9-4.4 g/dL GL 3.5 g/dL 2.3-3.5 [facility] A/G 1.0 1.0-2.5 [facility] T. BILIRUBIN 0.3 mg/dL 0.1-1.1 [facility] [employer] [place] Total Bilirubin is n ot recommended forpatients undergoing treatment with eltrombopag (Promacta)due to the potential for falsely elevated results. ALTI 47 U/L 6-54 [facility] Patients taking Sulfasalazine and/or Sul fapyridine may havefalsely depressed ALT levels. Patients should be drawn forALT before the initial administration of either drug. AST 18 U/L 6-38 [facility] Patients taking Sulfasalazine and/or Sul fapyridine may havefalsely depressed AST levels. Patients should be drawn forAST before the initial administration of either drug. ID Date Data Source [id number] 05/05/2020 01:52:00 AM EDT [facility] [place] Name Value Range Interpretation Code Description Data Stephanie rce(s) Supporting Document(s) WBC 8.06 x10E3/uL 4.0-10.5 N [facility] RBC 4.09 x10E6/uL 4.20-5.40 L [facility] Hemoglobin 11.8 g/dL 12.0-16.0 L [facility] Hematocrit 36.6 % 37.0-47.0 L [facility] MCV 89.5 fL 81.0-99.0 N [facility] MCH 28.9 pg 27.0-31.0 N [facility] MCHC 32.2 g/dL 32.7-35.6 L [facility] RDW 12.6 % 11.5-14.0 N [facility] Platelet count 226 x10E3/uL 150-450 N [facility] ital MPV 9.6 fl 6.9-9.5 H [facility] Neutrophils 51.7 % 34-64 N [facility] Lymphocytes 38.1 % 25-45 N [facility] Monocytes 8.4 % 1.7-10.6 N [facility] Eosinophils 1.1 % 0.4-7.0 N [facility] Basophils 0.2 % 0.1-2.0 N [facility] Imm. Gran. 0.5 % 0.1-2.0 N [facility] Abs. Neutro. 4.16 x10E3/uL 1.2-7.6 N [facility] [place] Abs. Lymph. 3.07 x10E3/uL 1.0-3.5 [facility] Abs. [place]. 0.68 x10E3/uL 0.1-1.0 [facility] Abs. Eosin. 0.09 x10E3/uL 0.1-0.7 [facility] Abs. Baso. 0.02 x10E3/uL 0.0-0.1 [facility] Abs. Imm. Gran. 0.04 x10E3/uL 0.0-0.1 N [facility] spital ANRBC% 0 % 0 N [facility] ID Date Data Source [id number] 05/05/2020 12:57:00 AM EDT [facility] [place], [place] [address]WBDPGSZT NOTE FOLLOW UPPATIENT NAME: DENISSE HATCHYLA CHANELLGIOVANNY PHYSICIAN: BOGDAN MACIAS MDAUTHOR: Lea Yusuf MD. DATE: 02/15/20 MR#: [id number] NOTE DATE: 05/05/20 RM#: [id number] TIME: 116 : 00Progress Note Follow UpSummaryMHU nurse called [...] rce(s) Supporting Document(s) ID Date Data Source [id number] 05/03/2020 01:24:00 PM EDT [facility] [address] [address]JZADFH HEALTH PROGRESS NOTEPATIENT NAME: YARELI HATCH PHYSICIAN: BOGDAN MACIAS, MDAUTHOR: Colleen SMITH,Sarahy. DATE: 02/15/20 MR#: [id number] NOTE DATE: 05/03/20 RM#: [id number] TIME: 1325 [...] rce(s) Supporting Document(s) ID Date Data Source [id number] 05/02/2020 01:53:00 PM EDT [address] HEALTH PROGRESS NOTEPATIENT NAME: YARELI HATCH PHYSICIAN: BOGDAN MACIAS MDAUTHOR: Colleen SMITH,DhruvADM. DATE: 02/15/20 MR#: [id number] NOTE DATE: 05/02/20 RM#: [id number] TIME: 1355 [...] current treatment plan, discussed with [facility]reg[facility] as well as increasing further Topamax [...] rce(s) Supporting Document(s) ID Date Data Source [id number] 05/01/2020 01:01:00 PM EDT [place] [address]MENTAL HEALTH PROGRESS NOTEPATIENT NAME: YARELI HATCH PHYSICIAN: BOGDAN MACIAS MDAUTHOR: Colleen SMITH,DhruvADM. DATE: 02/15/20 MR#: [id number] NOTE DATE: 05/01/20 RM#: [id number] TIME: 1303 [...] rce(s) Supporting Document(s) ID Date Data Source [id number] 04/30/2020 01:52:00 PM EDT [facility] PROGRESS NOTEPATIENT NAME: YARELI HATCH PHYSICIAN: BOGDAN MACIAS, JESSICAUTHOR: Colleen SMITH,DhruvADM. DATE: 02/15/20 MR#: [id number] NOTE DATE: 04/30/20 RM#: [id number] TIME: 1355 [...] rce(s) Supporting Document(s) ID Date Data Source [id number] 04/29/2020 11:16:00 AM EDT [address] HEALTH PROGRESS NOTEPATIENT NAME: YARELI HATCH PHYSICIAN: BOGDAN MACIAS MDAUTHOR: Colleen SMITH,DhruvADM. DATE: 02/15/20 MR#: [id number] NOTE DATE: 04/29/20 RM#: [id number] TIME: 1120 [...] current safe discharge plan regarding going to [facility] as well.Patient denied having any medication [...] rce(s) Supporting Document(s) ID Date Data Source [id number] 04/26/2020 01:20:00 PM EDT [place] [address]MENTAL HEALTH PROGRESS NOTEPATIENT NAME: YARELI HATCH PHYSICIAN: BOGDAN MACIAS MDAUTHOR: Colleen SMITH,DhruvADM. DATE: 02/15/20 MR#: [id number] NOTE DATE: 04/26/20 RM#: [id number] TIME: 1323 [...] thenursing staff regarding patient to be called Riog at this point as well. Solo discussed [...] rce(s) Supporting Document(s) ID Date Data Source [id number] 04/25/2020 01:43:00 PM EDT [facility] [place], [place] [address]YUYABM HEALTH PROGRESS NOTEPATIENT NAME: YARELI HATCH PHYSICIAN: BOGDAN MACIAS MDAUTHOR: Colleen SMITH,Sarahy. DATE: 02/15/20 MR#: [id number] NOTE DATE: 04/25/20 RM#: [id number] TIME: 1345 [...] rce(s) Supporting Document(s) ID Date Data Source [id number] 04/24/2020 02:01:00 PM EDT [address] HEALTH PROGRESS NOTEPATIENT NAME: YARELI HATCH PHYSICIAN: BOGDAN MACIAS MDAUTHOR: Colleen SMITH,DhruvADM. DATE: 02/15/20 MR#: [id number] NOTE DATE: 04/24/20 RM#: [id number] TIME: 1404 [...] sent areferral to supportive environment such as [facility] and other places as well. Atthe [...] SignsVital Signs-LastResult Date TimePulse Ox 99 04/24 114B/P 135/83 04/24 1140Temp 97.3 04/24 114Pulse 91 04/24 1140Resp 16 04/24 114Current MedicationsFluoxetine [...] rce(s) Supporting Document(s) ID Date Data Source [id number] 04/23/2020 01:23:00 PM EDT [address] HEALTH PROGRESS NOTEPATIENT NAME: YARELI HATCH PHYSICIAN: BOGDAN MACIAS MDAUTHOR: Colleen SMITH,DhruvADM. DATE: 02/15/20 MR#: [id number] NOTE DATE: 04/23/20 #: 317EVALUATION TIME: 1326 AddendumSubjectiveIdentificationPatient is 19-year-old female, [...] safety as well. [facility] and the [facility] was delivered to her which patient later on agreedfor further treatment to [facility] as well. Patient also reporting medicationsworking okay, [...] current treatment plan, discussed with the patientregarding [facility], continuing current medication [...] team, social work,physician's, familyRisk/benefits discussed side effectsADDENDUM: Bogdan Macias MD on 04/23/20 at 1327Increase level of observation from level 1 to level 2DATE SIGNED: 04/23/20 Electronically SignedTIME SIGNED: 1326 BOGDAN MACIAS MD Name Value Range Interpretation Code Description Data Stephanie rce(s) Supporting Document(s) ID Date Data Source [id number] 04/22/2020 09:56:00 AM EDT [address] HEALTH PROGRESS NOTEPATIENT NAME: [facility]ELI [facility] PHYSICIAN: BOGDAN MACIAS MDAUTHOR: Ana Win. DATE: 02/15/20 MR#: [id number] NOTE DATE: 04/22/20 RM#: 317EVALUATION TIME: 1008 [...] (Clotrimazole) 0 DIRECTED TOPNasal Lubricant (Saline Nasal [place]) 0 Q3HPRN PRN NASALExaminationMusculoskeletalGait normalStation normalMental [...] SIGNED: 04/22/20 Electronically SignedTIME SIGNED: 1310 FRANTZ - PNP-C [place] Name Value Range Interpretation Code Description Data Stephanie rce(s) Supporting Document(s) ID Date Data Source [id number] 04/19/2020 01:13:00 PM EDT [facility] [address] [address]VKJYBY HEALTH PROGRESS NOTEPATIENT NAME: YARELI HATCH PHYSICIAN: BOGDAN MACIAS, MDAUTHOR: Colleen SMITH,Sarahy. DATE: 02/15/20 MR#: [id number] NOTE DATE: 04/19/20 RM#: [id number] TIME: 1315 [...] (Clotrimazole) 0 DIRECTED TOPNasal Lubricant (Saline Nasal [place]) 0 Q3HPRN PRN NASALExaminationMusculoskeletalGait normalStation normalResultsResults Ordered/ReviewedLab Tests reviewedAssessment/PlanDiagnosis1. Major depressive disorderStatus Acute2. Suicide attemptStatus Acute3. Bipolar affective disorderCoordination of care provided with nursing staff, treatment teamRisk/benefits discussed side effectsDATE SIGNED: 04/19/20 Electronically SignedTIME SIGNED: 1315 BOGDAN MACIAS MD Name Value Range Interpretation Code Description Data Stephanie rce(s) Supporting Document(s) ID Date Data Source [id number] 04/18/2020 12:59:00 PM EDT [facility] HEALTH PROGRESS NOTEPATIENT NAME: YARELI HATCH PHYSICIAN: BOGDAN MACIAS MDAUTHOR: Colleen SMITH,DawsonvAPUJA. DATE: 02/15/20 MR#: [id number] NOTE DATE: 04/18/20 RM#: 317EVALUATION TIME: 1301 [...] (Clotrimazole) 0 DIRECTED TOPNasal Lubricant (Saline Nasal [place]) 0 Q3HPRN PRN NASALExaminationMusculoskeletalGait normalStation normalResultsLaboratory [...] rce(s) Supporting Document(s) ID Date Data Source [id number] 04/17/2020 07:50:00 PM EDT [facility] Name Value Range Interpretation Code Description Data Stephanie rce(s) Supporting Document(s) LIP 60.0 U/L 73-393 L [facility] ID Date Data Source [id number] 04/17/2020 07:50:00 PM EDT [facility] Name Value Range Interpretation Code Description Data Stephanie rce(s) Supporting Document(s) GLU 113 mg/dL 70-110 H [facility] Patients taking Sulfasalazine may have f alsely depressedGlucose levels. Patients taking Sulfapyridine may havefalsely elevated Glucose levels. Patients should be drawnfor Glucose before the initial administration of eitherdrug. BUN 17 mg/dL 7-23 [facility] CRE 0.692 mg/dL 0.500-1.300 [facility] CHLORIDE 109 mmol/L 99-110 [facility] NA 141 mmol/L 136-147 [facility] POTASSIUM 3.9 mmol/L 3.5-5.1 [facility] TCO2 24 mmol/L 20-33 [facility] ANION GAP 11.9 10.0-20.0 [facility] CA 9.1 mg/dL 8.3-10.7 [facility] ALKALINE PHOS 148 U/L 82-169 [facility] TP 8.0 g/dL 6.0-7.8 [facility] ALB 4.3 g/dL 3.5-5.0 [facility] ESRD Dialysis patient Albumin reference range: 2.9-4.4 g/dL GL 3.7 g/dL 2.3-3.5 [facility] A/G 1.2 1.0-2.5 [facility] T. BILIRUBIN 0.3 mg/dL 0.1-1.1 [facility] [place] Total Bilirubin is n ot recommended forpatients undergoing treatment with eltrombopag (Promacta)due to the potential for falsely elevated results. ALTI 45 U/L 6-54 [facility] Patients taking Sulfasalazine and/or Sul fapyridine may havefalsely depressed ALT levels. Patients should be drawn forALT before the initial administration of either drug. AST 26 U/L 6-38 [facility] Patients taking Sulfasalazine and/or Sul fapyridine may havefalsely depressed AST levels. Patients should be drawn forAST before the initial administration of either drug. ID Date Data Source [id number] 04/17/2020 07:17:00 PM EDT [facility] Name Value Range Interpretation Code Description Data Stephanie rce(s) Supporting Document(s) HbA1C 4.70 % 3.8-5.6 [facility] Suggested Diagnosis HbA1c% Diabet ic >/= 6.5Prediabetes 5.7%-6.4%Normal < 5.7% ID Date Data Source [id number] 04/17/2020 06:39:00 PM EDT [facility] Name Value Range Interpretation Code Description Data Stephanie rce(s) Supporting Document(s) WBC 6.99 x10E3/uL 4.0-10.5 [facility] RBC 4.51 x10E6/uL 4.20-5.40 [facility] Hemoglobin 13.0 g/dL 12.0-16.0 [facility] Hematocrit 39.4 % 37.0-47.0 [facility] MCV 87.4 fL 81.0-99.0 [facility] MCH 28.8 pg 27.0-31.0 [facility] MCHC 33.0 g/dL 32.7-35.6 [facility] RDW 12.7 % 11.5-14.0 [facility] Platelet count 260 x10E3/uL 150-450 [facility] ital MPV 9.5 fl 6.9-9.5 [facility] Neutrophils 53.5 % 34-64 [facility] Lymphocytes 38.1 % 25-45 [facility] Monocytes 6.9 % 1.7-10.6 [facility] Eosinophils 0.9 % 0.4-7.0 [facility] Basophils 0.3 % 0.1-2.0 [facility] Imm. Gran. 0.3 % 0.1-2.0 [facility] Abs. Neutro. 3.75 x10E3/uL 1.2-7.6 [facility] Abs. Lymph. 2.66 x10E3/uL 1.0-3.5 [facility] Abs. [place]. 0.48 x10E3/uL 0.1-1.0 [facility] Abs. Eosin. 0.06 x10E3/uL 0.1-0.7 L [facility] Abs. Baso. 0.02 x10E3/uL 0.0-0.1 [facility] Abs. Imm. Gran. 0.02 x10E3/uL 0.0-0.1 [facility] ANRBC% 0 % 0 N [facility] ID Date Data Source [id number] 04/17/2020 05:59:00 PM EDT [address] [id number] REPORTPATIENT NAME: YARELI HATCH MR#: [id number] PHYSICIAN: ANGELA VELAZQUEZONSULTING PHYSICIAN: Theresa Chowdhury DATE: [...] judgement, abnormal insight, anxiousData ReviewLaboratory Datapending.ImagingEXAM# TYPE/EXAM [id number] US/U/S COMPLETE UPPER ABDOMENDATE OF EXAMINATION: 04/17/2020 [...] Full codePlan discussed with patientCase discussed with egg caser, nursing staffDATE SIGNED: 04/17/20 Electronically SignedTIME SIGNED: 1806 THERESA [facility] MASTER-Janette CRYS Name Value Range Interpretation Code Description Data Stephanie rce(s) Supporting Document(s) ID Date Data Source [id number] 04/17/2020 01:29:00 PM EDT [address] PROGRESS NOTEPATIENT NAME: YARELI HATCH PHYSICIAN: BOGDAN MACIAS MDAUTHOR: Colleen SMITH,DhruvAPUJA. DATE: 02/15/20 MR#: [id number] NOTE DATE: 04/17/20 RM#: [id number] TIME: 1331 [...] she just wanted to have his number fromFacebook which we discussed with the patient about [...] (Clotrimazole) 0 DIRECTED TOPNasal Lubricant (Saline Nasal [place]) 0 Q3HPRN PRN NASALExaminationMusculoskeletalGait normalStation normalResultsResults Ordered/ReviewedLab Tests reviewedAssessment/PlanDiagnosis1. Bipolar disorder, manicCoordination of care provided with nursing staff, treatment teamRisk/benefits discussed side effectsJustification for continued stay danger to self/others, behavior intolerableDATE SIGNED: 04/17/20 Electronically SignedTIME SIGNED: 1330 BOGDAN MACIAS MD Name Value Range Interpretation Code Description Data Stephanie e(s) Supporting Document(s) ID Date Data Source [id number] 04/17/2020 01:00:00 PM EDT [facility] Exam Number: [id number] OF EXAMINATIO N: 04/17/2020 8:00 EDTU/S COMPLETE [...] Name Value Range Interpretation Code Description Data [facility](s) Supporting Document(s) ID Date Data Source [id number] 04/16/2020 01:31:00 PM EDT [facility] [address] HEALTH PROGRESS NOTEPATIENT NAME: YARELI HATCH [facility] PHYSICIAN: BOGDAN MACIAS MDAUTHOR: Colleen SMITH,DhruvADM. DATE: 02/15/20 MR#: [id number] NOTE DATE: 04/16/20 RM#: [id number] TIME: 1336 [...] (Clotrimazole) 0 DIRECTED TOPNasal Lubricant (Saline Nasal [place]) 0 Q3HPRN PRN NASALIbuprofen (Motrin) 600 MG Q6HPRN PRN POExaminationMusculoskeletalGait normalStation normalResultsResults Ordered/ReviewedLab Tests reviewedAssessment/PlanDiagnosis1. Bipolar disorder, manicCoordination of care provided with nursing staff, treatment teamRisk/benefits discussed side eff ectsJustification for continued stay danger to self/othersDATE SIGNED: 04/16/20 Electronically SignedTIME SIGNED: 1336 BOGDAN MACIAS MD Name Value Range Interpretation Code Description Data Stephanie rce(s) Supporting Document(s) ID Date Data Source [id number] 04/15/2020 11:11:00 AM EDT [address] HEALTH PROGRESS NOTEPATIENT NAME: YARELI HATCH PHYSICIAN: BOGDAN MACIAS MDAUTHOR: Colleen SMITH,DhruvADM. DATE: 02/15/20 MR#: [id number] NOTE DATE: 04/15/20 RM#: [id number] TIME: 1114 [...] (Clotrimazole) 0 DIRECTED TOPNasal Lubricant (Saline Nasal [place]) 0 Q3HPRN PRN NASALIbuprofen (Motrin) 600 MG Q6HPRN PRN POExaminationMusculoskeletalGait normalStation normalResultsResults Ordered/ReviewedLab Tests reviewedAssessment/PlanDiagnosis1. Bipolar disorder, manicCoordination of care provided with nursing staff, treatment teamRisk/benefits discussed side effectsDATE SIGNED: 04/15/20 Electronically SignedTIME SIGNED: 1114 BOGDAN MACIAS MD Name Value Range Interpretation Code Description Data Stephanie rce(s) Supporting Document(s) ID Date Data Source [id number] 04/14/2020 12:01:00 PM EDT [facility] [place] [id number] HEALTH PROGRESS NOTEPATIENT NAME: DAMARISYARELI CAPELLAN PHYSICIAN: BOGDAN MACIAS MDAUTHOR: Colleen SMITH,DhruvADM. DATE: 02/15/20 MR#: [id number] NOTE DATE: 04/14/20 RM#: 318EVALUATION TIME: 1203 [...] (Clotrimazole) 0 DIRECTED TOPNasal Lubricant (Saline Nasal [place]) 0 Q3HPRN PRN NASALIbuprofen (Motrin) 600 [...] rce(s) Supporting Document(s) ID Date Data Source [id number] 04/12/2020 11:39:00 AM EDT [address] HEALTH PROGRESS NOTEPATIENT NAME: YARELI HATCH PHYSICIAN: BOGDAN MACIAS MDAUTHOR: Colleen SMITH,DhruvADM. DATE: 02/15/20 MR#: [id number] NOTE DATE: 04/12/20 RM#: 318EVALUATION TIME: 1141 is 19-year-old female, currently single, lives in a motel,past psych history of bipolar disorderCC/Hx Present IllnessThe patient was referred for evaluation because pt having suicidal ideations.Events Since Last EntryPatient reporting feeling somewhat okay, she stated that at this point shefeels comfortable going back to [facility] as well as, discussed with the [...] (Clotrimazole) 0 DIRECTED TOPNasal Lubricant (Saline Nasal [place]) 0 Q3HPRN PRN NASALIbuprofen (Motrin) 600 [...] rce(s) Supporting Document(s) ID Date Data Source [id number] 04/11/2020 01:20:00 PM EDT [address] HEALTH PROGRESS NOTEPATIENT NAME: YARELI HATCH PHYSICIAN: BOGDAN MACIAS MDAUTHOR: Colleen SMITH,DhruvADM. DATE: 02/15/20 MR#: [id number] NOTE DATE: 04/11/20 RM#: [id number] TIME: 1323 [...] well.ObjectiveVital SignsVital Signs-LastResult Date TimePulse Ox 98 10 1100B/P 133/77 04/11 1100Temp 97.4 04/11 1100Pulse 79 04/11 1100Resp 18 04/11 1100Current MedicationsTopiramate (Topamax) 100 MG BID POLoratadine (Claritin) 10 MG DAILY POPatient Own Medication (PT'S OWN MED) 400 DOSE Q28D IMBenzocaine/Pectin/Carboxymethylcell (Cepastat) 1 JHOAN Q2HPRN PRN POClotrimazole (Clotrimazole) 0 DIRECTED TOPNasal Lubricant (Saline Nasal [place]) 0 Q3HPRN PRN NASALIbuprofen (Motrin) 600 [...] rce(s) Supporting Document(s) ID Date Data Source [id number] 04/10/2020 01:13:00 PM EDT [address] HEALTH PROGRESS NOTEPATIENT NAME: YARELI HATCH PHYSICIAN: BOGDAN MACIAS MDAUTHOR: Colleen SMITH,DhruvADM. DATE: 02/15/20 MR#: [id number] NOTE DATE: 04/10/20 RM#: 318EVALUATION TIME: 1317 [...] continue current treatment plan, patient is recommended [facility] in 6 months retention due to ongoing [...] (Clotrimazole) 0 DIRECTED TOPNasal Lubricant (Saline Nasal [place]) 0 Q3HPRN PRN NASALIbuprofen (Motrin) 600 [...] rce(s) Supporting Document(s) ID Date Data Source [id number] 04/09/2020 01:48:00 PM EDT [address] HEALTH PROGRESS NOTEPATIENT NAME: YARELI HATCH PHYSICIAN: BOGDAN MACIAS MDAUTHOR: Colleen SMITH,DhruvADM. DATE: 02/15/20 MR#: [id number] NOTE DATE: 04/09/20 RM#: 318EVALUATION TIME: 1353 is 19-year-old female, currently single, lives in a motel,past psych history of bipolar disorderCC/Hx Present IllnessThe patient was referred for evaluation because pt having suicidal ideations.Events Since Last EntryPatient was somewhat upset later on expressing that she wanted to stay here andshe does not feel comfortable going to [facility] where she came from as well. [...] sort of secondary gain regarding [facility]. Offered patient all available options which richelle bansal seems to be refusingand some of other places patient was not accepted due to prior history as well.At this point [facility] is also involved, also planning to add voluntaryhospitalization and providing all available support that patient can get [facility]. Discussed with the patient about maintaining [...] (Clotrimazole) 0 DIRECTED TOPNasal Lubricant (Saline Nasal [place]) 0 Q3HPRN PRN NASALIbuprofen (Motrin) 600 [...] rce(s) Supporting Document(s) ID Date Data Source [id number] 04/08/2020 03:04:00 PM EDT [facility] [place] [id number] HEALTH PROGRESS NOTEPATIENT NAME: YARELI HATCH [place] PHYSICIAN: BOGDAN MACIAS MDAUTHOR: Colleen SMITH,DhruvADM. DATE: 02/15/20 MR#: [id number] NOTE DATE: 04/08/20 RM#: 318EVALUATION TIME: 1506 [...] (Clotrimazole) 0 DIRECTED TOPNasal Lubricant (Saline Nasal [place]) 0 Q3HPRN PRN NASALIbuprofen (Motrin) 600 [...] rce(s) Supporting Document(s) ID Date Data Source [id number] 04/05/2020 02:20:00 PM EDT Joe [address] PROGRESS NOTEPATIENT NAME: YARELI HATCH PHYSICIAN: BOGDAN MACIAS MDAUTHOR: Pasquale WHITE,Ana. DATE: 02/15/20 MR#: [id number] NOTE DATE: 04/05/20 RM#: 318EVALUATION TIME: 1427 [...] (Clotrimazole) 0 DIRECTED TOPNasal Lubricant (Saline Nasal [place]) 0 Q3HPRN PRN NASALIbuprofen (Motrin) 600 [...] rce(s) Supporting Document(s) ID Date Data Source [id number] 04/05/2020 01:38:00 PM EDT [address] [id number] HEALTH PROGRESS NOTEPATIENT NAME: YARELI HATCH PHYSICIAN: BOGDAN MACIAS MDAUTHOR: Colleen SMITH,DhJennyfer. DATE: 02/15/20 MR#: [id number] NOTE DATE: 04/05/20 RM#: 318EVALUATION TIME: 1342 [...] (Clotrimazole) 0 DIRECTED TOPNasal Lubricant (Saline Nasal [place]) 0 Q3HPRN PRN NASALIbuprofen (Motrin) 600 [...] rce(s) Supporting Document(s) ID Date Data Source [id number] 04/04/2020 01:16:00 PM EDT [facility] [place] [address] HEALTH PROGRESS NOTEPATIENT NAME: DAMARISYARELI PHYSICIAN: BOGDAN MACIAS MDAUTHOR: Colleen SMITH,DhruvADM. DATE: 02/15/20 MR#: [id number] NOTE DATE: 04/04/20 RM#: 318EVALUATION TIME: 1321 is 19-year-old female, currently single, lives in a motel,past psych history of bipolar disorderCC/Hx Present IllnessThe patient was referred for evaluation because pt having suicidal ideations.Events Since Last EntryPatient reported earlier to the learning and development coordinator regarding that she haddifficulty with her [...] the same time we willconsider to have [facility] better compliance and plan to discontinueall [...] (Clotrimazole) 0 DIRECTED TOPNasal Lubricant (Saline Nasal [place]) 0 Q3HPRN PRN NASALClonidine (Catapres) 0.1 [...] rce(s) Supporting Document(s) ID Date Data Source [id number] 04/04/2020 11:16:00 AM EDT [address] HEALTH PROGRESS NOTEPATIENT NAME: YARELI HATCH PHYSICIAN: BOGDAN MACIAS MDAUTHOR: Ana Win. DATE: 02/15/20 MR#: [id number] NOTE DATE: 04/04/20 RM#: 318EVALUATION TIME: 1120 [...] (Clotrimazole) 0 DIRECTED TOPNasal Lubricant (Saline Nasal [place]) 0 Q3HPRN PRN NASALClonidine (Catapres) 0.1 [...] yelling for unknownreason. There was a code carmen called and we responded on the night unit infront of Yareli's room. She reported feeling angry, was yelling a staff, butwas also smirking. She accepted a prn for aggitation and she began to calm. Fausto meet with her later today if she consents and her behavior is safe andappropriate.DATE SIGNED: 04/04/20 Electronically SignedTIME SIGNED: 112 FRANTZ GIORDANO Name Value Range Interpretation Code Description Data Stephanie rce(s) Supporting Document(s) ID Date Data Source [id number] 04/03/2020 01:35:00 PM EDT [facility] [place] [address] [place], [place] [address] HEALTH PROGRESS NOTEPATIENT NAME: YARELI HATCH PHYSICIAN: BOGDAN MACIAS MDAUTHOR: Colleen SMIHT,DawsonvAPUJA. DATE: 02/15/20 MR#: [id number] NOTE DATE: 04/03/20 RM#: 318EVALUATION TIME: 1338 [...] does not feel comfortable returning back [facility] wherethere are bunch of drug addicts [...] (Clotrimazole) 0 DIRECTED TOPNasal Lubricant (Saline Nasal [place]) 0 Q3HPRN PRN NASALClonidine (Catapres) 0.1 [...] rce(s) Supporting Document(s) ID Date Data Source [id number] 04/02/2020 11:54:00 AM EDT [address] HEALTH PROGRESS NOTEPATIENT NAME: YARELI HATCH PHYSICIAN: BOGDAN MACIAS MDAUTHOR: Ana Win. DATE: 02/15/20 MR#: [id number] NOTE DATE: 04/02/20 RM#: 318EVALUATION TIME: 1638 [...] rce(s) Supporting Document(s) ID Date Data Source [id number] 04/03/2020 07:41:00 AM EDT [facility] [address] [id number] NAME: DAMARIS,YARELI Jensen#: [id number] PHYSICIAN: BOGDAN MACIAS MD ADM. DATE: 02/15/20PROGRESS NOTE DATE: 04/02/20 RM.#: 318ACCOUNT #: [id number] NOTEIDENTIFICATION: A 19-year-old female with schizoaffective disorder,borderline personality disorder.VITAL SIGNS: Temperature of 97, pulse of 105, respirations 16, blood wofdfqip908/83.SUBJECTIVE: The patient came to the interview room. [...] Dictated: 04/02/2020 11:24:04Date Transcribed: 04/03/2020 06:41:37JV/RAVJob #: [id number]: 04/02/20 1124 Electronically SignedTRANS:04/03/20 0741 FILI CANELA MDTRANS BY:IATDATE SIGNED:04/03/20REPORT COPY TO: Name Value Range Interpretation Code Description Data Stephanie rce(s) Supporting Document(s) ID Date Data Source [id number] 04/01/2020 02:07:00 PM EDT [place] [address] HEALTH PROGRESS NOTEPATIENT NAME: YARELI HATCH PHYSICIAN: BOGDAN MACIAS MDAUTHOR: Frantz WinADM. DATE: 02/15/20 MR#: [id number] NOTE DATE: 04/01/20 RM#: 318EVALUATION TIME: 1410 [...] and that she would notify the corporate associate attorney because sheis transgender. Yareli disclosed that [...] rce(s) Supporting Document(s) ID Date Data Source [id number] 04/02/2020 03:13:00 AM EDT [address] [id number] NAME: YARELI HATCH Janette Jensen#: [id number] PHYSICIAN: BOGDAN MACIAS MD ADM. DATE: 02/15/20PROGRESS NOTE DATE: 04/01/20 RM.#: 318ACCOUNT #: [id number] NOTEIDENTIFICATION: A 19-year-old female with schizoaffective disorder, [...] Dictated: 04/01/2020 10:44:46Date Transcribed: 04/02/2020 02:13:19JV/GBJob #: [id number]: 04/01/20 1044 Electronically SignedTRANS:04/02/203 FILI CANELA MDTRANS BY:KIERRA SIGNED:04/02/20REPORT COPY TO: Name Value Range Interpretation Code Description Data Stephanie rce(s) Supporting Document(s) ID Date Data Source [id number] 03/29/2020 11:29:00 AM EDT [address] HEALTH PROGRESS NOTEPATIENT NAME: YARELI HATCH PHYSICIAN: BOGDAN MACIAS, MDAUTHOR: Colleen SMITH,Sarahy. DATE: 02/15/20 MR#: [id number] NOTE DATE: 03/29/20 RM#: 318EVALUATION TIME: 1131 is 19-year-old female, currently single, well lives in [facility], past psych history of bipolar disorderCC/Hx [...] dischargeplan, currently waiting on supportive environment, [facility] has been involved aswell.ObjectiveVital SignsVital Signs-LastResult Date TimeTemp 98.9 03/29 0647Pulse Ox 99 03/28 1100B/P 96/61 03/28 1100Pulse 98 03/28 1100Resp 16 03/28 1100Current MedicationsSertraline HCl (Zoloft) 75 MG DAILY POBenzocaine/Pectin/Carboxymethylcell (Cepastat) 1 JHOAN Q2HPRN PRN POClotrimazole (Clotrimazole) 0 DIRECTED TOPNasal Lubricant (Saline Nasal [place]) 0 Q3HPRN PRN NASALClonidine (Catapres) 0.1 [...] rce(s) Supporting Document(s) ID Date Data Source [id number] 03/28/2020 12:37:00 PM EDT [address] HEALTH PROGRESS NOTEPATIENT NAME: YARELI HATCH PHYSICIAN: BOGDAN MACIAS MDAUTHOR: Colleen SMITH,DhruvADM. DATE: 02/15/20 MR#: [id number] NOTE DATE: 03/28/20 RM#: 318EVALUATION TIME: 1238 is 19-year-old female, currently single, well lives in [facility], past psych history of bipolar disorderCC/Hx [...] (Clotrimazole) 0 DIRECTED TOPNasal Lubricant (Saline Nasal [place]) 0 Q3HPRN PRN NASALClonidine (Catapres) 0.1 [...] rce(s) Supporting Document(s) ID Date Data Source [id number] 03/27/2020 01:16:00 PM EDT [facility] [address] HEALTH PROGRESS NOTEPATIENT NAME: YARELI HATCH PHYSICIAN: BOGDAN MACIAS MDAUTHOR: Colleen SMITH,DhruvADM. DATE: 02/15/20 MR#: [id number] NOTE DATE: 03/27/20 RM#: 318EVALUATION TIME: 1318 is 19-year-old female, currently single, well lives in [facility], past psych history of bipolar disorderCC/Hx [...] (Clotrimazole) 0 DIRECTED TOPNasal Lubricant (Saline Nasal [place]) 0 Q3HPRN PRN NASALClonidine (Catapres) 0.1 [...] rce(s) Supporting Document(s) ID Date Data Source [id number] 03/26/2020 02:18:00 PM EDT [place] [address] HEALTH PROGRESS NOTEPATIENT NAME: YARELI HATCH PHYSICIAN: BOGDAN MACIAS MDAUTHOR: Colleen SMITH,DhruvADM. DATE: 02/15/20 MR#: [id number] NOTE DATE: 03/26/20 RM#: 318EVALUATION TIME: 1419 is 19-year-old female, currently single, well lives in [facility], past psych history of bipolar disorderCC/Hx [...] (Clotrimazole) 0 DIRECTED TOPNasal Lubricant (Saline Nasal [place]) 0 Q3HPRN PRN NASALClonidine (Catapres) 0.1 [...] rce(s) Supporting Document(s) ID Date Data Source [id number] 03/25/2020 01:50:00 PM EDT [address] HEALTH PROGRESS NOTEPATIENT NAME: [facility]ELI HATCH [facility] PH[facility]ICIAN: BOGDAN MACIAS MDAUTHOR: Colleen SMITH,DhruvADM. DATE: 02/15/20 MR#: [id number] NOTE DATE: 03/25/20 RM#: 318EVALUATION TIME: 1352 is 19-year-old female, currently single, well lives in [facility], past psych history of bipolar disorderCC/Hx Present IllnessThe patient was referred for evaluation because pt having suicidal ideations.Events Since Last EntryPatient reporting feeling somewhat okay, expressing that she has been feelingfine and she is open to continue taking her medication as well. Still waitingfor safe discharge plan as well, [facility] is involved, denied having any medicationside effect [...] (Clotrimazole) 0 DIRECTED TOPNasal Lubricant (Saline Nasal [place]) 0 Q3HPRN PRN NASALClonidine (Catapres) 0.1 [...] Ex-drinker (finding) comp leted Ex- drinker (finding) [facility] Tobacco use and exposure 04/05/2021 12:00:00 AM EDT Never used co mpleted Never used [facility] Cigarette pack-years 04/05/2021 12:00:00 AM EDT UNK completed [facility] Cigarettes smoked current (pack per day) - Reported 04/05/20 21 12:00:00 AM EDT UNK completed [facility] Smoking 04/05/2021 12:00:00 AM EDT Current every day smoker co mpleted Current every day smoker [facility] Smoking 03/20/2021 12:00:00 AM EDT Unknown if ever smoked comp leted Unknown if ever smoked [facility] Alcohol intake 03/13/2021 12:00:00 AM EDT Ex-drinker (finding) comp leted Ex- drinker (finding) [facility] Tobacco use and exposure 03/13/2021 12:00:00 AM EDT Never used co mpleted Never used [facility] Cigarettes smoked current (pack per day) - Reported 03/13/20 12:00:00 AM EDT UNK completed [facility] Smoking 03/13/2021 12:00:00 AM EDT Current every day smoker co mpleted Current every day smoker [facility] Alcohol intake 02/21/2021 12:00:00 AM EDT Ex-drinker (finding) comp leted Ex- drinker (finding) [facility] 12/22/2020 12:00:00 AM EDT Cigarette Smoker completed Cig arette Smoker [facility] 12/22/2020 12:00:00 AM EDT Current every day smoker co mpleted Current every day smoker [facility] Smoking 11/13/2020 12:00:00 AM EDT Unknown if ever smoked comp leted Unknown if ever smoked [facility] ([facility]) Smoking 08/27/2020 12:00:00 AM EST Unknown if ever smoked comp leted Unknown if ever smoked [facility] ([facility]) Smoking 08/23/2020 12:00:00 AM EST Unknown if ever smoked comp leted Unknown if ever smoked [facility] ([facility]) Smoking 06/24/2020 12:00:00 AM EST Unknown if ever smoked comp leted Unknown if ever smoked [facility] ([facility] Vital Signs ID Date Data Source UNK Name Value Range Interpretation Code Description Data Source(s) Respiratory rate 16 /min 16 /min [facility] Oxygen saturation in Arterial blood by Pulse oximetry 95 % 95 % [facility] Systolic blood pressure 129 mm[Hg] 129 mm[Hg] [facility] Diastolic blood pressure 90 mm[Hg] 90 mm[Hg] [facility] [facility] Heart rate 72 /min 72 /min [facility] Body temperature 36.89 Particia 36.89 [facility] Body weight 137.077 kg 137.077 kg [facility] Body mass index (BMI) [Ratio] 48.78 kg/m2 48.78 kg/m2 [facility] Body height 167.6 cm 167.6 cm [facility] ID Date Data Source [id number] 05/19/2021 01:44:00 PM EST [facility] Name Value Range Interpretation Code Description Data Source(s) WEIGHT 104 kilos 104 kilos [facility] al HEIGHT 167.64 centimeters 167.64 centimeter [facility] ID Date Data Source [id number] 05/14/2021 05:46:00 PM EDT [facility] Name Value Range Interpretation Code Description Data Source(s) WEIGHT 104.545 kilos 104.545 [facility] HEIGHT 167.64 centimeters 167.64 centimeter [facility] ID Date Data Source [id number] 05/05/2021 08:15:00 PM EDT [facility] spital Name Value Range Interpretation Code Description Data Source(s) Weight Measurement Method 8 8 [facility] Weight 3680 3680 [facility] pital Temperature Source 7 7 [facility] Temperature 99.1 99.1 [facility] spital Respiratory Effort 1 1 [facility] Respiratory Rate 18 18 [facility] Pulse Assessment Method 4 4 [facility] Pulse Rate 66 66 [facility] 66 66 [facility] 128/55 128/55 [facility] ID Date Data Source [id number] 05/14/2021 12:07:00 PM EDT [facility] [place] Name Value Range Interpretation Code Description Data Source(s) WEIGHT 104 kilos 104 kilos [facility] al HEIGHT 167.64 centimeters 167.64 centimeter [facility] ID Date Data Source [id number] 05/01/2021 09:46:00 AM EDT [facility] spital Name Value Range Interpretation Code Description Data Source(s) Weight Measurement Method 8 8 [facility] Weight 3668.492 3668.492 [facility] pital Temperature 98.4 98.4 [facility] spital Respiratory Rate 16 16 [facility] Pulse Assessment Method 4 4 G [facility] Pulse Rate 68 68 [facility] pital Height 66 66 [facility] pital Blood Pressure 113/59 113/59 [facility] Weight Measurement Method 8 8 [facility] Weight 3668.492 3668.492 [facility] pital Height 66 66 [facility] pital ID Date Data Source [id number] 05/01/2021 01:52:00 AM EDT [facility] spital Name Value Range Interpretation Code Description Data Source(s) Weight Measurement Method 8 8 [facility] Weight 3679.991 3679.991 [facility] pital Respiratory Effort 1 1 [facility] Respiratory Rate 18 18 [facility] Height 66 66 [facility] pital Weight Measurement Method 8 8 [facility] Weight 3679.991 3679.991 [facility] pital Respiratory Effort 1 1 [facility] Respiratory Rate 18 18 [facility] Height 66 66 [facility] pital ID Date Data Source [id number] 05/07/2021 10:54:00 AM EDT [facility] spital Name Value Range Interpretation Code Description Data Source(s) Weight Measurement Method 8 8 [facility] Weight 3680 3680 [facility] pital Temperature Source 7 7 [facility] Temperature 98.8 98.8 [facility] spital Respiratory Effort 1 1 [facility] Respiratory Rate 18 18 [facility] Pulse Assessment Method 4 4 [facility] Pulse Rate 103 103 [facility] pital Height 66 66 [facility] pital Blood Pressure 162/60 162/60 [facility] ID Date Data Source [id number] 05/13/2021 02:42:00 PM EDT [facility] Name Value Range Interpretation Code Description Data Source(s) WEIGHT 150 kilos 150 kilos [facility] HEIGHT 172.72 centimeters 172.72 centimeter s [facility] ID Date Data Source [id number] 05/13/2021 02:02:00 PM EDT [facility] Name Value Range Interpretation Code Description Data Source(s) WEIGHT 136.6 kilos 136.6 kilos [facility] ital HEIGHT 167.64 centimeters 167.64 centimeter [facility] WEIGHT 303 kilos 303 [facility] 167.64 centimeters 167.64 centimeter [facility] ID Date Data Source [id number] 04/24/2021 11:09:00 AM EDT [facility] Name Value Range Interpretation Code Description Data Source(s) Weight Measurement Method 8 8 [facility] Weight 3680 3680 [facility] pital Temperature Source 7 7 [facility] Temperature 98.0 98.0 [facility] spital Respiratory Effort 1 1 [facility] Respiratory Rate 18 18 [facility] Pulse Assessment Method 4 4 [facility] Pulse Rate 88 88 [facility] pital Height 66 66 [facility] pital Blood Pressure 147/57 147/57 [facility] ID Date Data Source [id number] 04/28/2021 04:53:00 PM EDT [facility] spital Name Value Range Interpretation Code Description Data Source(s) Weight Measurement Method 8 8 [facility] Weight 3679.074 3679.074 [facility] pital Temperature Source 7 7 [facility] Temperature 98.2 98.2 [facility] spital Respiratory Effort 1 1 [facility] Respiratory Rate 16 16 [facility] Pulse Assessment Method 4 4 [facility] Pulse Rate 80 80 [facility] pital Height 66 66 [facility] pital Blood Pressure 132/72 132/72 [facility] ID Date Data Source [id number] 04/16/2021 12:24:00 PM EDT [facility] spital Name Value Range Interpretation Code Description Data Source(s) Weight Measurement Method 8 8 [facility] Weight 3680 3680 [facility] pital Temperature Source 7 7 [facility] Temperature 98.1 98.1 [place] [facility] Respiratory Effort 1 1 [facility] Respiratory Rate 16 16 [facility] Pulse Assessment Method 4 4 [facility] Pulse Rate 98 98 [facility] pital Height 66 66 [facility] pital Blood Pressure 111/58 111/58 [facility] Weight Measurement Method 8 8 [facility] Weight 3680 3680 [facility] pital Temperature Source 7 7 [facility] Temperature 98.1 98.1 [facility] Res[facility] Effort 1 1 [facility] Respiratory Rate 16 16 [facility] Pulse Assessment Method 4 4 [facility] Pulse Rate 98 98 [facility] pital Height 66 66 [facility] pital Blood Pressure 111/58 111/58 [facility] ID Date Data Source [id number] 04/19/2021 01:44:00 AM EDT [facility] Name Value Range Interpretation Code Description Data Source(s) WEIGHT 105 kilos 105 kilos [facility] HEIGHT 167.64 centimeters 167.64 centimeter [facility] ID Date Data Source [id number] 04/19/2021 01:44:00 AM EDT [facility] Name Value Range Interpretation Code Description Data Source(s) WEIGHT 131 kilos 131 kilos [facility] al HEIGHT 170.18 centimeters 170.18 centimeter [facility] ID Date Data Source [id number] 05/11/2021 06:14:00 PM [facility] Name Value Range Interpretation Code Description Data Source(s) Weight Measurement Method 8 8 [facility] Weight 3520 3520 [facility] pital Temperature Source 7 7 [facility] Temperature 97.4 97.4 [place] [facility] Respiratory Effort 1 1 [facility] Respiratory Rate 18 18 [facility] Pulse Assessment Method 4 4 [facility] Pulse Rate 94 94 [facility] pital Height 66 66 [facility] pital Blood Pressure 136/75 136/75 [facility] Weight Measurement Method 8 8 [facility] Weight 3520 3520 [facility] pital Temperature Source 1 1 [facility] Temperature 98.5 98.5 [place] [facility] Respiratory Effort 1 1 [facility] Respiratory Rate 16 16 [facility] Pulse Assessment Method 4 4 G [facility] Pulse Rate 86 86 [facility] pital Height 66 66 [facility] pital Blood Pressure 131/98 131/98 [facility] Weight Measurement Method 8 8 [facility] Weight 3520 3520 [facility] pital Temperature Source 1 1 [facility] Temperature 98.5 98.5 [place] [facility] Respiratory Effort 1 1 [facility] Respiratory Rate 18 18 [facility] Pulse Assessment Method 4 4 [facility] Pulse Rate 108 108 [facility] pital Height 66 66 [facility] pital Blood Pressure 131/92 131/92 [facility] ID Date Data Source [id number] 05/09/2021 04:32:00 PM EDT [place] [facility] Name Value Range Interpretation Code Description Data Source(s) Weight Measurement Method 8 8 [facility] Weight 3680 3680 [facility] pital Temperature Source 7 7 [facility] Temperature 99.0 99.0 [place] [facility] Respiratory Effort 1 1 [facility] Respiratory Rate 18 18 [facility] Pulse Assessment Method 4 4 G [facility] Pulse Rate 102 102 [facility] pital Height 66 66 [facility] pital Blood Pressure 141/79 141/79 [facility] Weight Measurement Method 8 8 [facility] Weight 3680 3680 [facility] pital Temperature Source 7 7 [facility] Temperature 98 98 [place] [facility] Respiratory Effort 1 1 [facility] Respiratory Rate 16 16 [facility] Pulse Assessment Method 4 4 [facility] Pulse Rate 122 122 [facility] pital Height 66 66 [facility] pital Blood Pressure 149/85 149/85 [facility] ID Date Data Source [id number] 03/25/2021 07:15:08 AM EDT [facility] Name Value Range Interpretation Code Description Data Source(s) TRANSFER FROM [facility] ID Date Data Source [id number] 05/09/2021 04:49:00 PM EDT [facility] Name Value Range Interpretation Code Description Data Source(s) Weight Measurement Method 8 8 [facility] Weight 3680 3680 [facility] pital Temperature Source 7 7 [facility] Temperature 97.3 97.3 [place] [facility] Respiratory Rate 18 18 [facility] Pulse Rate 106 106 [facility] pital Height 66 66 [facility] pital Blood Pressure 122/83 122/83 [facility] Weight Measurement Method 8 8 [facility] Weight 3680 3680 [facility] pital Temperature Source 7 7 [facility] 97.3 97.3 [facility] Res[facility] Rate 18 18 [facility] Pulse Rate 106 106 [facility] pital Height 66 66 [facility] pital Blood Pressure 122/83 122/83 [facility] ID Date Data Source [id number] 05/10/2021 06:49:00 PM EDT [facility] Name Value Range Interpretation Code Description Data Source(s) Weight Measurement Method 8 8 [facility] Weight 3680 3680 [facility] pital Temperature Source 7 7 [facility] Temperature 99.8 99.8 [facility] Respiratory Effort 1 1 [facility] Respiratory Rate 18 18 [facility] 117 [address] [facility] 66 66 [facility] Blood Pressure 142/72 142/72 [facility] Weight Measurement Method 8 8 [facility] Weight 3680 3680 [facility] pital Temperature Source 7 7 [facility] Temperature 99.8 99.8 [place] [facility] Respiratory Effort 1 1 [facility] Respiratory Rate 18 18 [facility] Pulse Rate 117 117 [facility] Height 66 66 [facility] pital Blood Pressure 142/72 142/72 [facility] ID Date Data Source [id number] 05/09/2021 02:14:00 PM EDT [place] [facility] Name Value Range Interpretation Code Description Data Source(s) Weight Measurement Method 8 8 [facility] Weight 3680 3680 [facility] pital Temperature Source 7 7 [facility] Temperature 97.3 97.3 [facility] spital Respiratory Rate 16 16 [facility] Pulse Assessment Method 4 4 [facility] Pulse Rate 68 68 [facility] pital Height 66 66 [facility] pital Blood Pressure 113/59 113/59 [facility] Weight Measurement Method 8 8 [facility] Weight 3680 3680 [facility] pital Temperature Source 7 7 [facility] Temperature 98.7 98.7 [facility] spital Respiratory Rate 20 20 [facility] Pulse Rate 110 110 [facility] pital Height 66 66 [facility] pital Blood Pressure 135/70 135/70 [facility] ID Date Data Source [id number] 05/10/2021 09:58:00 AM EDT [facility] [facility] Name Value Range Interpretation Code Description Data Source(s) Weight Measurement Method 8 8 [facility] Weight 3680 3680 [facility] pital Temperature Source 7 7 [facility] Temperature 98.4 98.4 [facility] Res[facility] Effort 1 1 [facility] Respiratory Rate 16 16 [facility] Pulse Assessment Method 4 4 [facility] Pulse Rate 78 78 [facility] pital Height 66 66 [facility] pital Blood Pressure 129/88 129/88 [facility] Weight Measurement Method 8 8 [facility] Weight 8113.011 8113.011 [facility] pital Temperature Source 7 7 [facility] Temperature 98.4 98.4 [facility] spital Respiratory Effort 1 1 [facility] Respiratory Rate 18 18 [facility] Pulse Assessment Method 4 4 [facility] Pulse Rate 109 109 [facility] p[facility] Height 66 66 [facility] Blood Pressure 145/74 145/74 [facility] ID Date Data Source [id number] 02/26/2021 08:59:13 AM EDT [facility] Name Value Range Interpretation Code Description Data Source(s) TRANSFER FROM [facility] ID Date Data Source [id number] 05/09/2021 08:17:00 PM EDT [place] [facility] Name Value Range Interpretation Code Description Data Source(s) Weight Measurement Method 8 8 [facility] Weight 3680 3680 [facility] pital Temperature Source 7 7 [facility] Temperature 98.3 98.3 [facility] spital Respiratory Effort 1 1 [facility] Respiratory Rate 20 20 [facility] Pulse Assessment Method 4 4 [facility] Pulse Rate 108 108 [facility] pital Height 66 66 [facility] pital Blood Pressure 124/58 124/58 [facility] Weight Measurement Method 8 8 [facility] Weight 3680 3680 [facility] pital Temperature Source 7 7 [facility] Temperature 96.7 96.7 [facility] spital Respiratory Effort 1 1 [facility] Respiratory Rate 18 18 [facility] Pulse Assessment Method 4 4 [facility] Pulse Rate 94 94 [facility] pital Height 66 66 [facility] pital Blood Pressure 126/81 126/81 [facility] Weight Measurement Method 8 8 [facility] Weight 3680 3680 [facility] pital Temperature Source 7 7 [facility] Temperature 96.7 96.7 [facility] spital Respiratory Effort 1 1 [facility] Respiratory Rate 18 18 [facility] Pulse Assessment Method 4 4 [facility] Pulse Rate 94 94 [facility] pital Height 66 66 [facility] pital Blood Pressure 126/81 126/81 [facility] ID Date Data Source [id number] 04/19/2021 01:44:00 AM EDT [facility] Name Value Range Interpretation Code Description Data Source(s) WEIGHT 136.6 kilos 136.6 kilos [facility] HEIGHT 170.18 centimeters 170.18 centimeter [facility] WEIGHT 137.7 kilos 137.7 kilos [facility] HEIGHT 170.18 centimeters 170.18 centimeter s [facility] WEIGHT 137.2 kilos 137.2 kilos [facility] HEIGHT 170.18 centimeters 170.18 centimeter s [facility] WEIGHT 137.2 kilos 137.2 kilos [facility] HEIGHT 152.4 centimeters 152.4 centimeters [facility] WEIGHT 137.2 kilos 137.2 kilos [facility] HEIGHT 170.18 centimeters 170.18 centimeter s [facility] WEIGHT 134.5 kilos 134.5 kilos [facility] HEIGHT 170.18 centimeters 170.18 centimeter s [facility] ID Date Data Source [id number] 04/19/2021 01:44:00 AM EDT [facility] Name Value Range Interpretation Code Description Data Source(s) WEIGHT 136.3 kilos 136.3 kilos [facility] HEIGHT 152.4 centimeters 152.4 centimeters [facility] WEIGHT 136.3 kilos 136.3 kilos [facility] HEIGHT 170.18 centimeters 170.18 centimeter s [facility] WEIGHT 136.8 kilos 136.8 kilos [facility] HEIGHT 170.18 centimeters 170.18 centimeter s [facility] WEIGHT 131.5 kilos 131.5 kilos [facility] HEIGHT 170.18 centimeters 170.18 centimeter s [facility] WEIGHT 128.8 kilos 128.8 kilos [facility] HEIGHT 170.18 centimeters 170.18 centimeter s [facility] WEIGHT 126.8 kilos 126.8 kilos [facility] HEIGHT 170.18 centimeters 170.18 centimeter s [facility] WEIGHT 124 kilos 124 kilos [facility] HEIGHT 170.18 centimeters 170.18 centimeter s [facility] ID Date Data Source [id number] 10/29/2020 09:38:25 PM EDT [facility] Name Value Range Interpretation Code Description Data Source(s) PREFERRED NAME Romel Urena [facility] ID Date Data Source [id number] 04/19/2021 01:44:00 AM EDT [facility] Name Value Range Interpretation Code Description Data Source(s) WEIGHT 124 kilos 124 kilos [facility] HEIGHT 167.64 centimeters 167.64 centimeter s [facility] ID Date Data Source [id number] 07/18/2020 09:56:40 PM [facility] Name Value Range Interpretation Code Description Data Source(s) PREFERRED NAME Romel Urena [facility] TRANSFER FROM [facility] ID Date Data Source [id number] 04/19/2021 01:43:00 AM EDT [facility] Name Value Range Interpretation Code Description Data Source(s) WEIGHT 122.8 kilos 122.8 kilos [facility] HEIGHT 167.64 centimeters 167.64 centimeter s [facility] WEIGHT 100 kilos 100 kilos [facility] HEIGHT 167.64 centimeters 167.64 centimeter s [facility] ID Date Data Source [id number] 04/19/2021 01:43:00 AM EDT [facility] Name Value Range Interpretation Code Description Data Source(s) WEIGHT 124.2 kilos 124.2 kilos [facility] HEIGHT 167.64 centimeters 167.64 centimeter s [facility] WEIGHT 123.4 kilos 123.4 kilos [facility] HEIGHT 167.64 centimeters 167.64 centimeter s [facility] WEIGHT 123.9 kilos 123.9 kilos [facility] HEIGHT 167.64 centimeters 167.64 centimeter s [facility] WEIGHT 123.9 kilos 123.9 kilos [facility] HEIGHT 152.4 centimeters 152.4 centimeters [facility] WEIGHT 119.6 kilos 119.6 kilos [facility] HEIGHT 167.64 centimeters 167.64 centimeter s [facility] WEIGHT 118.2 kilos 118.2 kilos [facility] HEIGHT 167.64 centimeters 167.64 centimeter s [facility] WEIGHT 112.6 kilos 112.6 kilos [facility] HEIGHT 167.64 centimeters 167.64 centimeter s [facility] WEIGHT 100 kilos 100 kilos [facility] HEIGHT 167.64 centimeters 167.64 centimeter [facility] ID Date Data Source [id number] 04/19/2021 01:43:00 AM EDT [facility] Name Value Range Interpretation Code Description Data Source(s) WEIGHT 100 kilos 100 kilos [facility] HEIGHT 167.64 centimeters 167.64 centimeter [facility] ID Date Data Source [id number] 04/19/2021 01:43:00 AM EDT [facility] Name Value Range Interpretation Code Description Data Source(s) WEIGHT 110 kilos 110 kilos [facility] HEIGHT 167.64 centimeters 167.64 centimeter [facility] WEIGHT 100 kilos 100 kilos [facility] HEIGHT 167.64 centimeters 167.64 centimeter [facility] ID Date Data Source [id number] 04/19/2021 01:43:00 AM EDT [facility] Name Value Range Interpretation Code Description Data Source(s) WEIGHT 104.4 kilos 104.4 kilos [facility] HEIGHT 152.4 centimeters 152.4 centimeters [facility] WEIGHT 100 kilos 100 kilos [facility] HEIGHT 167.64 centimeters 167.64 centimeter [facility] Patient Treatment Plan of Care Planned Activity Planned Date Details Description Data Source (s) Sertraline 50 MG Oral Tablet 04/07/2021 12:00:00 AM [facility] Prazosin 1 MG Oral Capsule 04/05/2021 10:00:00 PM [facility] Ondansetron 4 MG Disintegrating Oral Tablet 04/05/2021 06:25:36 AM [facility] Magnesium Hydroxide 80 MG/ML Oral Suspension 04/05/2021 06:25:35 AM [facility] Aluminum Hydroxide 40 MG/ML / Magnesium Hydroxide 40 MG/ML / Simethicone 4 MG/ML Oral Suspension [facility]/05[facility] Oral Tablet 04/05/2021 06:25:23 AM [facility] aripiprazole 10 MG Oral Tablet 03/25/2021 12:00:00 AM [facility] Escitalopram 5 MG Oral Tablet 03/15/2021 12:00:00 AM [facility] Prazosin 2 MG Oral Capsule 03/15/2021 12:00:00 AM [facility] topiramate 25 MG Oral Tablet 02/26/2021 12:00:00 AM [facility] Sertraline 50 MG Oral Tablet 02/26/2021 12:00:00 AM [facility] Loratadine 10 MG Oral Tablet 02/26/2021 12:00:00 AM [facility] Lurasidone Hydrochloride 80 MG Oral Tablet 02/26/2021 12:00:00 AM [facility] topiramate 25 MG Oral Tablet 02/26/2021 12:00:00 AM [facility] Sertraline 50 MG Oral Tablet 02/26/2021 12:00:00 AM [facility] Lurasidone Hydrochloride 80 MG Oral Tablet 02/26/2021 12:00:00 AM [facility] Loratadine 10 MG Oral Tablet 02/26/2021 12:00:00 AM [facility] Propranolol Hydrochloride 10 MG Oral Tablet 02/25/2021 12:00:00 AM [facility] Prazosin 2 MG Oral Capsule 02/25/2021 12:00:00 AM [facility] montelukast 10 MG Oral Tablet 02/25/2021 12:00:00 AM [facility] Trazodone Hydrochloride 50 MG Oral Tablet 02/25/2021 12:00:00 AM [facility] Pravastatin Sodium 20 MG Oral Tablet 02/25/2021 12:00:00 AM [facility] Trazodone Hydrochloride 50 MG Oral Tablet 02/25/2021 12:00:00 AM [facility] Propranolol Hydrochloride 10 MG Oral Tablet 02/25/2021 12:00:00 AM [facility] [facility] Prazosin 2 MG Oral Capsule 02/25/2021 12:00:00 AM [facility] Pravastatin Sodium 20 MG Oral Tablet 02/25/2021 12:00:00 AM [facility] montelukast 10 MG Oral Tablet 02/25/2021 12:00:00 AM [facility] chlorproMAZINE (THORAZINE) 50 MG/2ML injection 02/22/2021 05:23:23 PM [facility] diphenhydrAMINE (BENADRYL) 50 MG/ML injection 02/22/2021 05:23:16 P M [facility] Hydroxyzine Hydrochloride 50 MG Oral Tablet 02/21/2021 08:18:25 PM [facility] Magnesium Hydroxide 80 MG/ML Oral Suspension 02/21/2021 08:18:18 PM [facility] 2 ML aripiprazole 200 MG/ML Prefilled Syringe [Abilify ] 06/18/2020 12:00:00 AM [facility] duloxetine 30 MG Delayed Release Oral Capsule 12/28/2019 12:00:00 A M [facility] Sertraline 50 MG Oral Tablet [facility] Propranolol Hydrochloride 10 MG Oral Tablet [facility] Prazosin 1 MG Oral Capsule [facility] Ondansetron 4 MG Oral Tablet [facility] Citalopram 20 MG Oral Tablet [facility]
[2021-05-24] MEDS ORDERED: NS 1,000 ML IV ONE (04:35)
[2021-05-24 05:02] LABS: BASO % 0.3 % (0.0-1.0); EOS # 0.1 10^3/uL (0.0-0.5); EOS % 1.3 % (0.0-3.0); HEMATOCRIT 39.2 % (36.0-47.0); HEMOGLOBIN 12.5 g/dl (12.0-15.5); LYMPH # 2.4 10^3/uL (1.5-5.0); LYMPH % 31.8 % (24.0-44.0); MEAN CORPUSCULAR HEMOGLOBIN 28.9 pg (27.0-33.0); MEAN CORPUSCULAR HGB CONC 31.9 g/dl (32.0-36.5); MEAN CORPUSCULAR VOLUME 90.5 fl (80.0-96.0); MONO # 0.6 10^3/uL (0.0-0.8); NEUTROPHILS # 4.4 10^3/uL (1.5-8.5); NEUTROPHILS % 58.2 % (36.0-66.0); PLATELET COUNT, AUTOMATED 264 10^3/uL (150-450); RED BLOOD COUNT 4.33 10^6/uL (4.00-5.40); WHITE BLOOD COUNT 7.6 10^3/uL (4.0-10.0)
[2021-05-24 05:17] LABS: AMPHETAMINES LEVEL URINE NEGATIVE (NEGATIVE); BARBITURATES URINE NEGATIVE (NEGATIVE); BENZODIAZEPINES URINE NEGATIVE (NEGATIVE); CANNABINOIDS URINE NEGATIVE (NEGATIVE); COCAINE METABOLITE URINE NEGATIVE (NEGATIVE); METHADONE URINE NEGATIVE (NEGATIVE); OPIATES URINE NEGATIVE (NEGATIVE); PHENCYCLIDINE URINE NEGATIVE (NEGATIVE)
--- OUTSIDE RECORDS SUMMARY | 2021-05-24 05:20 | CCD ---
Author Author [facility] Address Unknown Phone Unavailable Support Name Relationship Address Phone TULIO HUTCHISON Next Of Kin [address] [facility] [address] [place] [address] LIVING, TRANSITIONAL Next Of Kin [address] [place] [address] Unavailable N, PER PT ONE Next Of Kin [address] [facility] [address], [place] [address] WILMAR DUENAS Next Of Kin [address] [place] [address] NO ONE, PATIENT PER Next Of Kin [address] [place] [address] JOAN WOODWARD Next Of Kin Unknown Unavailable Yamileth Aleman Next Of Kin [address] [place] [address] CONTACT, NO Next Of Kin Unknown NO, CONTACT Next Of Kin Unknown U Next Of Kin Unknown Unavailable TLS, RESIDENTS [facility] Next Of Kin [address] [place] [address] Camelia Martinez Next Of Kin [address] [place] [address] UN Next Of Kin Unknown Unavailable none to, list Next Of Kin [address] [facility] [address] [place] [address] ALIZA HATCH Next Of Kin [address] [place] [address] KAREN GODFREY Next Of Kin [address] [place] [address] TL, S Next Of Kin [address] [place] [address] PEPPER TORIBIO Next Of Kin Unknown UE Next Of Kin Unknown Unavailable CHOIROLAPEPPER Next Of Kin [address] [place] [address] S Next Of Kin Unknown Unavailable Mainor HATCH Next Of Kin [address] [place] [address] ST Next Of Kin Unknown Unavailable Jorge HTACH Next Of Kin [address] [place] [address] Care Team Providers Care Boat Puller Name Role Phone LaBarge, Ezyad Unavailable SYSTEM IN, NOT IN PROVIDER Unavailable [...] Unavailable Unavailable WADE KELLEY MD Unavailable Unavailable WDAE KELLEY MD Unavailable Unavailable WADE KELLEY MD [...] MD Unavailable Unavailable Feuga, Santiago Unavailable Feuga, Santiago Unavailable Feuga, Santiago Unavailable Feuga, Santiago Unavailable Sohail GROVER MD Unavailable Unavailable ANSHUL STRAUSS MD Unavailable Unavailable NASHUL STRAUSS MD Unavailable Unavailable ANSHUL STRAUSS MD [...] Sohail GROVER MD Unavailable Unavailable Divya Orozco DIRECTOR PROPERTY Unavailable Unavailable Cortney, Vish DIRECTOR PROPERTY Unavailable Cortney, Vish DIRECTOR PROPERTY Unavailable Cortney, Vish DIRECTOR PROPERTY Unavailable Mariam HICKS MD Unavailable Unavailable Mariam [...] Unavailable WILLIAM CARREON MD Unavailable Unavailable COLBY QUAKER Unavailable Unavailable BOWMAN, QUAKER MD Unavailable Unavailable BOWMAN, QUAKER MD Unavailable Unavailable BOWMAN, QUAKER MD Unavailable Unavailable BOWMAN, QUAKER MD Unavailable Unavailable BOWMAN, QUAKER MD Unavailable Unavailable BOWMAN, QUAKER MD Unavailable Unavailable BOWMAN, QUAKER MD Unavailable Unavailable Pedro Estrada Unavailable Pedro [...] Nicole Grantibhav MD Unavailable Unavailable Nicole Kent PMH-DIRECTOR PROPERTY Unavailable Unavailable Nicole Kent PMH-DIRECTOR PROPERTY Unavailable Unavailable Nicole Kent Tammie PMH-DIRECTOR PROPERTY Unavailable Unavailable Nicole Kent PMH-DIRECTOR PROPERTY Unavailable Unavailable Nicole Kent Tammie PMH-DIRECTOR PROPERTY Unavailable Unavailable Harvard, K Tammie PMH-DIRECTOR PROPERTY Unavailable Unavailable Donte, Nicole Tammie PMH-DIRECTOR PROPERTY Unavailable Unavailable Nicole Kent Tammie PMH-DIRECTOR PROPERTY Unavailable Unavailable Maria De Jesus RIBEIRO Unavailable [...] Gonzalo COLBERT . Unavailable Unavailable Martin Negron DIRECTOR PROPERTY Unavailable Unavailable Sohail Muñoz MD Unavailable Unavailable [...] L Deejay PA-C Unavailable Unavailable Megna, L Edejay PA-C Unavailable Unavailable Megna, L Deejay PA-C Unavailable Unavailable Megna, L Deejay PA-C Unavailable Unavailable Megna, L Deejay PA-C Unavailable Unavailable Megna, L Deejay PA-C Unavailable Unavailable Megna, L Deejay PA-C Unavailable Unavailable Megna, L Deejay PA-C Unavailable Unavailable Litchfield, F Zaki PA Unavailable Unavailable Litchfield, F Zaki PA Unavailable Unavailable Litchfield, F Zaki PA Unavailable Unavailable Litchfield, F Zaki PA Unavailable Unavailable [place]itchfield, F Zaki PA Unavailable Unavailable [place]itchfield, F Zaki PA Unavailable Unavailable [place]field, F Zaki PA Unavailable Unavailable Macario, F Zaki PA Unavailable Unavailable [place]itchfield, F Zaki PA Unavailable Unavailable [place], F Zaki PA Unavailable Unavailable ZEGIL, D THERESA VEHICLE SALES PROFESSIONAL Unavailable Unavailable ZEGIL, D THERESA VEHICLE SALES PROFESSIONAL Unavailable Unavailable ZEGIL, D THERESA VEHICLE SALES PROFESSIONAL Unavailable Unavailable AL-Silvio, Ramón MD Unavailable Unavailable [...] is protected by Article 27-F of the [facility] Public Health law. If you continue you may have access to information: Regarding HIV / AIDS; Provided by facilities licensed or operated by the [facility] Office of Mental Health; or Provided by the [facility] Office for People With Developmental Disabilities. If such information is present, then the following [facility] mandated warning applies: This information has [...] law may result in a fine or half-way sentence or both. A general authorization for the release of medical or other information is NOT sufficient authorization for further disc losure. Allergies and Adverse Reactions Type Description Substance Reaction Status Data Source(s ) Drug allergy Drug allergy risperidone Unknown Reaction [facility] Drug allergy Drug allergy haloperidol (From Haldol) Unknown Reaction [facility] Propensity to adverse reactions to substance Risperdal Risperidone 1 MG Oral Tablet [Risperdal] Active [facility] Drug allergy risperidone risperidone ADDITIONAL UNSPECIFIED [facility] Drug allergy haloperidol haloperidol ADDITIONAL UNSPECIFIED [facility] SEASONAL ALLERGIES SEASONAL ALLERGIES [facility] ([facility]) No Allergies No Allergies [facility] ([facility]) No allergies to food No allergies to food [facility] ([facility]) NKDA NKDA [facility] ([facility]) Drug allergy haloperidol [facility]ol [facility] Family History Family Member Name Family Member Gender Family Member Status Date o f Status Description Data Source(s) Unknown Male Condition Family Member ADD / ADHD S [facility] Encounters Encounter Providers Location Date Indications Data Source(s ) Inpatient Attender: AMADA SIMON MD Attender: DYLAN RIBEIROAttender: BROOKLYN ONEILL MDAttender: ZEESHAN GROVER MDAdmitter: BROOKLYN ONEILL MD ER-3RD 05/13/2021 11:10:00 PM EDT - 05/15/2021 11:10:00 AM EDT [facility] Patient discharged. [facility]billable [facility] 05/12/2021 12:00:00 AM EDT [facility] ([facility]) Inpatient Attender: BROOKLYN ONEILL MDAttender: ZEESHAN GROVER MDAdmitter: BROOKLYN ONEILL MD ER-3RD 05/06/2021 02:17:00 PM EDT - 05/08/2021 04:22:00 PM EDT [facility] Patient discharged. Emergency Attender: THERESA BARAHONA [facility] ED-ED 04/12 07:56:00 PM EDT - 05/05/2021 11:21:00 PM EDT suicidal ideation [facility] suicidal ideation Patient discharged. Inpatient Attender: BOGDAN MACIAS MDAtten víctor: DYLAN RIBEIROAttender: BROOKLYN ONEILL MDAttender: KYLIE العلي MDAdmitter: BROOKLYN ONEILL MD ER-3RD 05/01/2021 04:51:00 PM EDT - 05/05/2021 11:59:00 AM EDT [facility] Patient discharged. Emergency Attender: Zaki OWENS ED-ED 01:54:00 AM EDT - 05/01/2021 09:45:00 AM EDT PSYCHIATRIC [facility] PSYCHIATRIC Patient discharged. Emergency Attender: Zaki OWENS ED-ED 11:28:00 PM EDT - 05/01/2021 01:25:00 AM EDT DEPRESSION [facility] DEPRESSION Patient discharged. Emergency Attender: Angelica Martinez MDAttender: Angelica Martinez MD ED-ED 04/30/2021 07:03:00 PM EDT - 04/30/2021 10:30:00 PM EDT DEPRESSION [facility] DEPRESSION Patient discharged. Inpatient Attender: BOGDAN MACIAS MDAttjef víctor: BROOKLYN ONEILL MDAttender: Ramón Levy MDAdmitter: BROOKLYN ONEILL MD ER-3RD 04/27/20 04:51:00 AM EDT - 04/30/2021 02:30:00 PM EDT [facility] Patient discharged. Inpatient Attender: BROOKLYN ONEILL MDAttender: Ramón Levy MDAdmitter: BROOKLYN ONEILL MD ER-3RD 04/26/2021 02:30:00 AM EDT - 04/26/2021 03:15:00 PM EDT [facility] Patient discharged. Emergency Attender: LAUREEN LUIS [id number] 021 01:05:00 PM EDT - 04/24/2021 04:29:00 PM EDT [facility] Patient discharged. Emergency Attender: Zaki OWENS ED-ED 08:53:00 PM EDT - 04/24/2021 11:08:00 AM EDT SUICIDAL THOUGHTS,ANXIETY [facility] SUICIDAL THOUGHTS,ANXIETY Patient discharged. Emergency Attender: Ramón Levy MD ER-ER 1 10:29:00 PM EDT - 04/21/2021 03:43:00 PM EDT [facility] Patient discharged. Emergency Attender: ZEESHAN GROVER MD ER-ER 03/2021 01:17:00 AM EDT - 04/19/2021 02:55:00 PM EDT [facility] Patient discharged. Emergency Attender: KENRICK ZHOU PAAttender: Zaki OWENS ED-ED 04/17/2021 01:21:00 AM EDT - 04/17/2021 01:48:00 PM EDT CONSUMED CLEANING AGENT [facility] CONSUMED CLEANING AGENT Patient discharged. [facility]-billable [facility] 04/14/2021 12:00:00 AM EDT [facility]) Emergency Attender: Nils Argueta MD ER-ER 2020 08:28:00 PM EDT - 04/14/2021 04:43:00 PM EDT [facility] Patient discharged. Emergency Attender: THERESA BARAHONA [facility] ED-ED 08/2020 03:11:00 AM EDT - 04/13/2021 06:45:00 PM EDT THINKING OF SELF HARM [facility] THINKING OF SELF HARM Patient discharged. Inpatient Attender: BOGDAN Hassan víctor: ZEESHAN GROVER MDAdmitter: BOGDAN MACIAS MD ER-3RD 04/09/2021 12:50:00 PM EDT - 04/11/2021 10:46:00 AM EDT [facility] Patient discharged. Inpatient Attender: Deejay Pearson PA-dyeing machine back tender: JOSE HICKS MDAttender: Leeroy NinaoAttender: LEEROY COLBERT .Admitter: JOSE HICKS MDReferrer: JOSE HICKS MD [id number] 04/05/2021 12:00:00 AM EDT - 04/07/2021 12:21:00 PM EDT [facility] suicidal Patient discharged. Emergency Attender: LAUREEN LUIS ES1-CP2 021 11:17:00 PM EDT - 04/04/2021 01:56:00 PM EDT [facility] Patient discharged. Inpatient Attender: BOGDAN Hassan víctor: BROOKLYN ONEILL MDAttender: Nils Argueta MDAdmitter: BROOKLYN ONEILL MD ER-3RD 04/01/2021 0 6:08:00 PM EDT - 04/03/2021 10:22:00 AM EDT [facility] Patient discharged. Emergency Attender: KENRICK ZHOU PAAttender: Zaki OWENS ED-ED 03/27/2021 10:08:00 PM EDT - 03/30/2021 06:15:00 AM EDT SUICIDAL THOUGHTS,ANXIETY [facility] SUICIDAL THOUGHTS,ANXIETY Patient discharged. Emergency Attender: Leeroy RUIZttender: Leeroy OWENS ED-ED 03/25/2021 08:09:00 PM EDT - 03/25/2021 11:25:00 PM EDT MENTAL HEALTH ISSUES [facility] MENTAL HEALTH ISSUES Patient discharged. Inpatient Attender: Velasquez Lemos er: VELASQUEZ ESTRADAAttender: TARAH BOWMAN MDAdmitter: TARAH BOWMAN MD [id number] 03/21/2021 02:54:00 AM EDT - 03/24/2021 12:21:00 PM EDT [facility] Patient discharged. Psychiatric Diagnostic Evaluation (Non-Medical) Attender: Rosa Farley [facility] 03/20/2021 01:00:00 AM EDT - 03/20/2021 01:00:00 AM EDT [facility] ([facility]) Emergency Attender: THERESA FAUSTINJorge [facility] ED-ED 03/2021 12:32:00 AM EDT - 03/20/2021 01:00:00 AM EDT MENTAL HEALTH ISSUES [facility] MENTAL HEALTH ISSUES Patient discharged. Attender: Zeyad Kovacsremi 03/20/2021 12:00:00 AM EDT [facility] ([facility]) Outpatient Attender: Darren Negron NP 03/17/2021 09:0 7:00 PM EDT Amb Documentation [facility] Documentation Outpatient Attender: Darren Negron NPAdm itter: Divya Orozco NPConsultant: Divya Orozco NP 03/16/2021 09:50:00 PM EDT [facility] Ideations [facility] Suicidal Ideations Inpatient Attender: Divya Orozco NPAdmitter: Divya gonzales DIRECTOR PROPERTY 03/16/2021 09:50:00 PM EDT - 03/19/2021 11:43:00 AM EDT [facility] Su[facility] Ideations Patient discharged. Outpatient Attender: Vish Barr NPAd mitter: Divya Orozco NPConsultant: Divya Orozco NP 03/16/2021 09:50:00 PM EDT [facility] Suicidal Ideations Outpatient Attender: Divya Orozco NPA dmitter: Divya Orozco NPConsultant: Divya Orozco NP 03/16/2021 09:50:00 PM EDT [facility] Suicidal Ideations Emergency Attender: Anoop Bowman ER-ER 03/16/20 05:07:00 AM EDT - 03/16/2021 07:30:00 PM EDT [facility] Patient discharged. Emergency Attender: Leeroy OWENS ED-ED 021 11:49:00 PM EDT - 03/16/2021 01:34:00 AM EDT MEDICATION SWITCH FOR MENTAL HEALTH [facility] MEDICATION SWITCH FOR MENTAL HEALTH Patient discharged. IP PSYCH Attender: WADE KELLEY MD Attender: YOLANDE Duenasender: Marky Grant MDAdmitter: YOLANDE LIEBERMAN MDConsultant: William CoeirConsultant: WILLIAM CARREON MD [id number]-2A 03/13/2021 11:02:00 AM EDT - 03/15/2021 01:22:00 PM EDT [facility] Patient discharged. non-billable [facility] 03/12/2021 12:00:00 AM EDT [facility]) Emergency Attender: Leeroy Sykesender: KENRICK OWENS ED-ED 03/05/2021 06:28:00 PM EDT - 03/06/2021 01:47:00 PM EDT MENTAL HEALTH ISSUES [facility] MENTAL HEALTH ISSUES Patient discharged. Emergency Attender: Ramirez Muñoz MD ED-ED 03/03/20 12:40:00 AM EDT - 03/03/2021 09:59:00 AM EDT [facility] MENTAL HEALTH Patient discharged. Emergency Attender: Nils Argueta MD ER-ER 2020 02:30:00 AM EDT - 03/02/2021 11:27:00 AM EDT [facility] Patient discharged. Emergency Attender: Nils Argueta MD ER-ER 2020 09:08:00 PM EDT - 03/01/2021 12:39:00 PM EDT [facility] Patient discharged. Outpatient [address] [id number] Integration Team 02/27/2021 02:45:00 PM EDT [facility] ([facility]) Patient admitted. Inpatient Attender: AYAN Clifton nder: Velasquez EstradaAttender: VELASQUEZ ESTRADAAdmitter: AYAN DIAMOND MDReferrer: PROVIDER SYSTEM [facility] 02/21/2021 12:14:00 PM EDT - 02/25/2021 11:39:[address] [facility] Patient discharged. Emergency Attender: Ramón Levy MD ER-ER 0 02/20/2021 10:45:00 PM EDT - 02/21/2021 11:44:00 PM EDT [facility] Patient discharged. Emergency Attender: Ramón Levy MD ER-ER 0 02/19/2021 02:28:00 AM EDT - 02/19/2021 10:15:00 AM EDT [facility] Patient discharged. Emergency Attender: Anoop Bowman ER-ER 02/18/20 03:10:00 AM EDT - 02/17/2021 01:54:00 PM EDT [facility] Patient discharged. Emergency Attender: Santiago Stewartender: Anoop Hayward R-ER 02/15/2021 08:00:00 PM EDT - 02/16/2021 01:02:00 PM EDT [facility] Patient discharged. Emergency Attender: KENRICK OWENS ED-ED 02/14 09:21:00 PM EDT - 02/14/2021 11:01:00 PM EDT VOMITING,DIARRHEA [facility] VOMITING,DIARRHEA Patient discharged. Inpatient Attender: DYLAN Michelle er: BROOKLYN ONEILL MDAttender: AMADA SIMON MDAttender: KYLIE العلي MDAdmitter: AMADA SIMON MD ER-3RD 01/03/2021 11:03:00 AM EDT - 02/13/2021 11:40:00 AM EDT [facility] Patient discharged. Outpatient Attender: Tammie Kent [facility] 11/13/2020 09:30:00 AM EDT - 11/13/2020 09:30:00 AM EDT [facility] ([facility]) Attender: Tammie EVANS-HILDA 11/13/2020 12: 00:00 AM EDT [facility] ([facility]) Inpatient Attender: BROOKLYN ONEILL MDAttender: BOGDAN MACIAS MDAttender: KYLIE العلي MDAdmitter: BOGDAN MACIAS MD ER-3RD 10/31/2020 0 8:49:00 AM EDT - 01/01/2021 01:05:00 PM EDT [facility] Patient discharged. Outpatient [id number] 10/29/2020 09:35:00 PM EDT [facility] Inpatient Attender: ZEESHAN GROVER MD Attender: BROOKLYN ONEILL MDAttender: ANSHUL STRAUSS MDAdmitter: BROOKLYN ONEILL MD ER-3RD 10:58:00 AM EDT - 10/29/2020 12:50:00 PM EDT [facility] Patient discharged. Extended Individual Psychotherapy - 45 min [facility] 08/27/2020 11:00:00 AM EST - 08/27/2020 11:00:00 AM EST [facility] ([facility]) Attender: [facility] 08/27/2020 12:00:00 AM EST [facility] ([facility]) Psychiatric Diagnostic Evaluation (Non-Medical) Attender: Rosa larios [facility] 08/23/2020 10:00:00 AM EST - 08/23/2020 10:00:00 AM EST [facility] ([facility]) Attender: [facility] 08/23/2020 12:00:00 AM EST [facility] ([facility]) Outpatient Referrer: FORTUNATO BUTCHER DO 07/11/2020 02 :52:00 PM EST suicide attempt, borderline personality disorder, depression [facility] suicide attempt, borderline personality disorder, depression Extended Individual Psychotherapy - 45 min Attender: Jessica Sotomayor [facility] 06/24/2020 11:00:00 AM EST - 06/24/2020 11:00:00 AM EST [facility] ([facility]) Attender: Fariba Sotomayor 06/24/2020 12:00:00 AM EST [facility] ([facility]) Inpatient Attender: FILI CANELA MDAt tender: Nils Argueta MDAttender: NILS ARGUETA MDAdmitter: FILI CANELA MD ER-3RD 06/15/2020 04:05: 00 AM EST - 06/17/2020 01:23:00 PM [facility] Patient discharged. Inpatient Attender: BOGDAN MACIAS MDAtten víctor: BROOKLYN ONEILL MDAttender: KYLIE العلي MDAdmitter: BROOKLYN ONEILL MD ER-3RD 12/2019 09:22:00 PM EDT - 05/17/2020 08:58:00 AM [facility] Patient discharged. Inpatient Attender: EDUARDO Salazar MDAttender: BOGDAN MACIAS MDAttender: AMADA SIMON MDAdmitter: AMADA SIMON MD ER-3RD 020 10:06:00 PM EDT - 12/13/2019 10:30:00 AM EDT [facility] Patient discharged. Inpatient Attender: BOGDAN MACIAS MDAtten víctor: FILI CANELA MDAttender: Ramón Anguiano MDAdmitter: BOGDAN MACIAS MD ER-3RD 11/02/2019 10:24:00 AM EDT - 11/08/2019 12:07:00 PM EDT [facility] Patient discharged. Inpatient Attender: BOGDAN MACIAS MDAtten víctor: BROOKLYN ONEILL MDAttender: AMADA SIMON MDAttender: ANSHUL STRAUSS MDAdmitter: AMADA SIMON MD ER-3RD 08/04/2019 06:28:00 PM EST - 08/11/2019 11:25:00 AM [facility] Patient discharged. Emergency Attender: ANSHUL STRAUSS MD ER-ER 1 07/13/2017 06:59:00 PM EDT - 05/18/2018 06:04:00 PM [facility] Emergency Attender: EDUARDO JERRY MD ER-ER 04/12/2018 05:21:00 PM EDT - 04/16/2018 06:48:00 PM EDT [facility] Immunizations Vaccine Date Status Description Data Source(s) COVID-19 VACCINE Sophia 11/12/2020 12:00:00 AM EDT completed [facility] Vaccine Series Complete: YESThis Data wa s Submitted to [facility] Via [employer]. Medications Medication Brand Name Start Date Product Form Dose Route Admi nistrative Instructions Pharmacy Instructions Status Indications Reaction Description Data Source(s) Sertraline 50 MG Oral Tablet sertraline (ZOLOFT) table t 50 mg sertraline (ZOLOFT) tablet 50 mg 04/07/2021 10:45:00 AM EDT 50 mg Oral active 50 mg, Oral, Daily Standard, First dose on 04/07/21 at 1045, For 30 days [facility] Medication administered onsite aripiprazole 5 MG Oral Tablet ARIPiprazole (ABILIFY) t ablet 10 mg ARIPiprazole (ABILIFY) tablet 10 mg 04/07/2021 10:45:00 AM EDT 10 mg Oral active 10 mg, Oral, Daily Standard, First dose on 04/07/21 at 1045, For 30 days [facility] Medication administered onsite Sertraline 50 MG Oral Tablet Sertraline HCl 50 MG Oral Tablet (ZOLOFT) Sertraline HCl 50 MG Oral Tablet (ZOLOFT) 04/07/2021 12:00:00 AM EDT active Take 50 mg for 2 day s, then increase to 100 mg on 04/10, and increase to 150 mg on 04/13. [facility] olanzapine 5 MG/ML Injectable Solution OLANZapine (ZYP REXA) injection 10 mg OLANZapine (ZYPREXA) injection 10 mg 04/06/2021 10:45:00 PM EDT 10 mg Intramuscular completed 10 mg, Intr amuscular, Once, On 04/06/21 at 2245, For 1 dose
Reconstitute 10 mg vial with 2.1 mL SWFI; resulting solution is ~5 mg/mL; Use within 1 hour following reconstitution.
[facility] Medication administered onsite Prazosin 1 MG Oral Capsule prazosin (MINIPRESS) capsul e 1 mg prazosin (MINIPRESS) capsule 1 mg 04/05/2021 10:00:00 PM EDT 1 mg Oral active 1 mg, Oral, Nightly, First dose on 04/05/21 at 2200, For 30 days
Check vital signs before administering
[facility] Medication administered onsite olanzapine 10 MG Oral Tablet OLANZapine (ZYPREXA) tabl et 10 mg OLANZapine (ZYPREXA) tablet 10 mg 04/05/2021 07:40:57 PM EDT 10 mg Oral active 10 mg, Oral, Every 2 hours PRN, Agitation, MDD 20 mg, Starting on 04/05/21 at 1940, For 30 days [facility] Medication administered onsite Ibuprofen 400 MG Oral Tablet ibuprofen (MOTRIN) tablet 400 mg ibuprofen (MOTRIN) tablet 400 mg 04/05/2021 07:34:02 PM EDT 400 mg Oral act shea 400 mg, Oral, Every 6 hours PRN, Moderate Pain (Pain Scale Score 4-6), Headaches, Starting on 04/05/21 at 1934, For 30 days
Take with food.
[facility] Medication administered onsite multivitamin tablet 1 tablet [id number] 04/05/2021 08:00:00 AM EDT 1 {tbl} Oral active 1 tablet, Oral , Daily Standard, First dose on 04/05/21 at 0800, For 30 days [facility] Medication administered onsite Nicotine 2 MG Oral Lozenge nicotine (NICORETTE) lozeng e 2 mg nicotine (NICORETTE) lozenge 2 mg 04/05/2021 06:25:36 AM EDT 2 mg Mouth/Th roat active 2 mg, Mouth/Throat, Every 2 hours PRN, Smoking cessation, Starting on 04/05/21 at 0625, For 30 days
Should not be chewed or swallowed; allow to dissolve slowly (~20-30 minutes)
[facility] Medication administered onsite Ondansetron 4 MG Disintegrating Oral Tab let ondansetron (ZOFRAN-ODT) disintegrating tablet 4 mg ondansetron (ZOFRAN-ODT) disintegrating tablet 4 mg 04/05/2021 06:25:36 AM EDT 4 mg Oral active 4 mg, Oral, Every 6 hours PRN, Nausea, Starting on 04/05/21 at 0625, For 30 days
Dissolve on tongue.
[facility] Medication administered onsite Magnesium Hydroxide 80 MG/ML [...] creatinine > 2 notify provider before administering.
[facility] Medication administered onsite Acetaminophen 325 MG Oral [...] mg from all sources in 24 hrs.
[facility] Medication administered onsite Hydroxyzine Hydrochloride 50 MG Oral Tablet hydrOXYzin e (ATARAX) tablet 50 mg hydrOXYzine (ATARAX) tablet 50 mg 04/05/2021 06:25:35 AM EDT 50 mg Oral active 50 mg, Oral, Every 6 hours PRN, Anxiety, Sleep, Starting on 04/05/21 at 0625, For 30 days [facility] Medication administered onsite Aluminum Hydroxide 40 MG/ML [...] at 0625, For 30 days
MDD 4
[facility] Medication administered onsite Melatonin 5 MG Oral Tablet melatonin tablet 5 mg melatonin t ablet 5 mg 04/05/2021 06:25:23 AM EDT 5 mg Oral active 5 mg, Oral, Nightly PRN, Sleep, Starting on 04/05/21 at 0625, For 30 days [facility] Medication administered onsite aripiprazole 10 MG Oral Tablet ARIPiprazole 10 MG Oral Tablet (ABILIFY) ARIPiprazole 10 MG Oral Tablet (ABILIFY) 03/25/2021 12:00:00 AM EDT 10 mg Oral active Take 1 tablet by mary kay [facility] Escitalopram 5 MG Oral Tablet escitalopram oxalate (LE XAPRO) 5 mg tablet escitalopram oxalate (LEXAPRO) 5 mg tablet 03/15/2021 12:00:00 AM EDT 5 mg oral active anxiety with depression T carmela 1 tablet (5 mg total) by mouth 1 (one) time each day with dinner. [facility] anxiety with depression Prazosin 2 MG Oral Capsule prazosin (MINIPRESS) 2 mg c apsule prazosin (MINIPRESS) 2 mg capsule 03/15/2021 12:00:00 AM EDT 2 mg oral active post traumatic stress disorder Take 1 capsule (2 mg total) by mouth 1 (one) time each day at night. [facility] post traumatic stress disorder Lurasidone Hydrochloride 80 MG Oral Tabl et Lurasidone HCl 80 MG Oral Tablet (LATUDA) Lurasidone HCl 80 MG Oral Tablet (LATUDA) 02/26/2021 12:00:00 AM EDT 80 mg Oral active Take 1 tablet by mouth d [facility] Loratadine 10 MG Oral Tablet Loratadine 10 MG Oral Tab let (CLARITIN) Loratadine 10 MG Oral Tablet (CLARITIN) 02/26/2021 12:00:00 AM EDT 10 mg Oral active Take 1 tablet by mouth daily [facility] Lurasidone Hydrochloride 80 MG Oral Tabl et Lurasidone HCl 80 MG Oral Tablet (LATUDA) Lurasidone HCl 80 MG Oral Tablet (LATUDA) 02/26/2021 12:00:00 AM EDT 80 mg Oral aborted Take 1 tablet by mouth d [facility] topiramate 25 MG Oral Tablet Topiramate 25 MG Oral Tab let (TOPAMAX) Topiramate 25 MG Oral Tablet (TOPAMAX) 02/26/2021 12:00:00 AM EDT 75 mg Oral active Take 3 tablets by mouth daily [facility] Sertraline 50 MG Oral Tablet Sertraline HCl 50 MG Oral Tablet (ZOLOFT) Sertraline HCl 50 MG Oral Tablet (ZOLOFT) 02/26/2021 12:00:00 AM EDT 150 mg Oral aborted Take 3 tablets by mo uth daily [facility] Loratadine 10 MG Oral Tablet Loratadine 10 MG Oral Tab let (CLARITIN) Loratadine 10 MG Oral Tablet (CLARITIN) 02/26/2021 12:00:00 AM EDT 10 mg Oral aborted Take 1 tablet by mouth daily [facility] topiramate 25 MG Oral Tablet Topiramate 25 MG Oral Tab let (TOPAMAX) Topiramate 25 MG Oral Tablet (TOPAMAX) 02/26/2021 12:00:00 AM EDT 75 mg Oral aborted Take 3 tablets by mouth daily [facility] Sertraline 50 MG Oral Tablet Sertraline HCl 50 MG Oral Tablet (ZOLOFT) Sertraline HCl 50 MG Oral Tablet (ZOLOFT) 02/26/2021 12:00:00 AM EDT 150 mg Oral aborted Take 3 tablets by mo ut daily [facility] Prazosin 2 MG Oral Capsule Prazosin HCl 2 MG Oral Caps ule (MINIPRESS) Prazosin HCl 2 MG Oral Capsule (MINIPRESS) 02/25/2021 12:00:00 AM EDT 2 mg Oral [facility] S[facility] 20 MG Oral Tablet Pra vastatin Sodium 20 MG Oral Tablet (PRAVACHOL) Pravastatin Sodium 20 MG Oral Tablet (PRAVACHOL) 02/25 12:00:00 AM EDT 20 mg Oral active Take 1 tablet by mouth every evening [facility] montelukast 10 MG Oral Tablet Montelukast Sodium 10 MG Oral Tablet (SINGULAIR) Montelukast Sodium 10 MG Oral Tablet (SINGULAIR) 02/25/2021 12:00:00 AM EDT 10 mg Oral active Take 1 tablet by [facility] montelukast 10 MG Oral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 04/05/2021 01:30:00 AM [facility] HEMOGLOBIN GLYCOSYLATED A1C <td>HEMOGLOBIN A1C</td><td>Routine</td><td>04/05/2021 1:30 AM EDT</td><td></td><td> </td> 04/05/2021 01:30:00 AM [facility] SALICYLATE LEVEL <td>SALICYLATE LEVEL</td><td >STAT</td><td>04/05/2021 1:30 AM EDT</td><td></td><td> </td> 04/05/2021 01:30:00 AM [facility] LIPID PANEL <td>LIPID PANEL</td><td>Rout ine</td><td>04/05/2021 1:30 AM EDT</td><td></td><td> </td> 04/05/2021 01:30:00 AM [facility] COMPREHENSIVE METABOLIC PANEL <td>COMPREHENSIVE METABO LIC PANEL</td><td>STAT</td><td>04/05/2021 1:30 AM EDT</td><td></td><td> </td> 04/05/2021 01:30:00 AM [facility] Non-covered item or service NON-COVERED ITEM OR SERVICE 03/12 12:00:00 AM [facility] ECG ROUTINE ECG W/LEAST 12 LDS TRCG ONLY W/O I&R ELECTROCARD IOGRAM TRACING 03/27/2021 12:00:00 AM [facility] [address]991 SARS-COV-2 COVID-19 AMP PRB 03/27/2021 12:00:00 AM [facility] URNLS DIP STICK/TABLET RGNT AUTO W/O MICROSCOPY URINALYSIS A UTO W/O SCOPE 03/27/2021 12:00:00 AM [facility] COLLECTION VENOUS BLOOD VENIPUNCTURE ROUTINE VENIPUNCTURE 12:00:00 AM [facility] BLOOD COUNT COMPLETE AUTO&AUTO DIFRNTL WBC COUNT COMPLETE CB C W/AUTO DIFF WBC 03/27/2021 12:00:00 AM [facility] 96377 DRUG SCREEN QUANTALCOHOLS 03/27/2021 12:00:00 AM [facility] 41563 DRUG TEST PRSMV DIR OPT OBS 03/27/2021 12:00:00 AM [facility] MAGNESIUM ASSAY OF MAGNESIUM 03/27/2021 12:00:00 AM [facility] 98147 ANALGESICS NON-OPIOID 1 OR 2 03/27/2021 12:00:[address] [facility] URINE TEST VISUAL COLOR CMPRSN METHS URINE PREGNAN CY TEST 03/27/2021 12:00:00 AM [facility] TROPONIN QUANTITATIVE ASSAY OF TROPONIN QUANT 03/27/2021 12:00:00 A M [facility] COMPREHENSIVE METABOLIC PANEL COMPREHEN METABOLIC PANEL 03/12 12:00:00 AM [facility] Infusion, normal saline solution , 1000 cc 03/27/2021 12:00:00 AM [facility] EMERGENCY DEPT VISIT HIGH SEVERITY&THREAT FUNCJ EMERGENCY DE PT VISIT 03/27/2021 12:00:00 AM [facility] URINALYSIS MICROSCOPIC ONLY MICROSCOPIC EXAM OF URINE 2020 12:00:00 AM [facility] EMERGENCY DEPARTMENT VISIT LOW/MODER SEVERITY EMERGENCY DEPT VISIT 03/20/2021 12:00:00 AM [facility] Psychiatric Diagnostic Evaluation (Non-Medical) 03/20/2021 12:00:00 AM EDT - 03/20/2021 12:00:00 AM EDT [facility] ([facility]) Psychiatric Diagnostic Evaluation (Non-Medical) 2020 12:00:00 AM EDT [facility] ([facility]) EMERGENCY DEPARTMENT VISIT MODERATE SEVERITY EMERGENCY DEPT VISIT 03/15/2021 12:00:00 AM [facility] Injection, ketorolac tromethamine, per 15 mg 12:00:00 AM [facility] THERAPEUTIC PROPHYLACTIC/DX INJECTION SUBQ/IM THER/PROPH/PAULY G INJ SC/IM 03/06/2021 12:00:00 AM [facility] FIBRIN DGRADJ PRODUCTS D-DIMER QUANTITATIVE FIBRIN DEGRADATI ON QUANT 03/03/2021 12:00:00 AM [facility] AMYLASE ASSAY OF AMYLASE 02/14/2021 12:00:00 AM [facility] LIPASE ASSAY OF LIPASE 02/14/2021 12:00:00 AM [facility] OFFICE OUTPATIENT VISIT 15 MINUTES 11/13 12:00:00 AM EDT - 11/13/2020 12:00:00 AM EDT [facility] ([facility]) OFFICE OUTPATIENT VISIT 15 MINUTES 11/13/2020 12:00:00 AM EDT [facility] ([facility]) INTRODUCE COVID19 VACC IN MUSCLE, PERC, NEW TECH 6 11/12/2020 12:00:00 AM [facility] Extended Individual Psychotherapy - 45 min 08/27/2020 12:00:00 AM EST - 08/27/2020 12:00:00 AM EST [facility] ([facility]) Extended Individual Psychotherapy - 45 min 12:00:00 AM [facility] ([facility]) Psychiatric Diagnostic Evaluation (Non-Medical) 08/23/2020 12:00:00 AM EST - 08/23/2020 12:00:00 AM EST [facility] ([facility]) Psychiatric Diagnostic Evaluation (Non-Medical) 2020 12:00:00 AM EST [facility] ([facility]) Extended Individual Psychotherapy - 45 min 06/24/2020 12:00:00 AM EST - 06/24/2020 12:00:00 AM EST [facility] ([facility]) Extended Individual Psychotherapy - 45 min 0 12:00:00 AM EST [facility] ([facility]) Results ID Date Data Source [id number] 05/17/2021 02:13:00 PM EDT [facility] Name Value Range Interpretation Code Description Data Stephanie rce(s) Supporting Document(s) SARS coronavirus 2 RNA [Presence] in Res piratory specimen by CORDELL with probe detection [facility] was ordered by [facility] a nd reported by [facility]. ID Date Data Source [id number] 05/15/2021 09:57:00 AM EDT [place] [id number] NAME: YARELI HATCH#: [id number] PHYSICIAN: DYLAN RIBEIROACCOUNT #: [id number] ADM. DATE: 05/13/21PATIENT : 00 DISCH. DATE: [50}DISCHARGE SUMMARYMHU discharge planNicotine Replacement TherapySmoking Status Current some day smokeriStopEND ENDDICT: 05/15/2157 Electronically SignedTRANS:05/15/2157 DYLAN RIBEIROTRANS BY:DATE SIGNED:05/15/21TIME SIGNED: [id number] COPY TO: Name Value Range Interpretation Code Description Data Stephanie rce(s) Supporting Document(s) ID Date Data Source [id number] 05/15/2021 09:25:00 AM EDT [place] [id number] HEALTH DISCHARGE SUMMARYPATIENT NAME: YARELI HATCH MR#: [id number] PHYSICIAN: DYLAN RIBEIROAUTHOR: Dylan Aquino DATE: 05/13/21 RM#: [id number] DATE:HbdaawdRokowigtgyrmln43-udwa-fph single white femaleChief Complaint"I had a suicidal thought due to the fact that I lost my cousin"Reason for AdmissionSuicidal ideations with 2 plan; jumping off a bridge or drinking handsanitizer. She also has increased depression and impulsive behaviorsHistory of Presenting [id number]-spqa-zfw female was brought to the emergency department by [facility] with complaints of suicidal ideations with a plan to jump in front of amoving vehicle or drinking and ground crewman. Patient did admit upon arrival tot emergency department that she did attempt to drink hand ground crewman but wasunsuccessful due to staff interventio n at her living facility, [facility]. Uponarrival to the emergency department patient was [...] the PSA. Patient is a resident at [facility] and is on an AOT.Patient met with [...] disorder, depression, and schizoaffective disorder. Patientcurrently attends [facility] and sees Yamileth for a therapist.Last appointment [...] who lives in a supportive housing [facility], [facility] is on [facility]. Patient never graduated [...] second degree andcharges of disorderly conductHospital CourseHospital Inpkas72-yvlk-bdt female was admitted involuntarily to mental health [...] this. Patient admitted to getting upset at [facility], because she was not [...] cleared in the emergency department [facility] after reviewing her labs and that again was clearedmedically by the hospitalist to receive psychiatric care in an inpatientpsychiatric setting. At no point during the course of her admission to thepatient experience any new medical complaints or develop any new medicalconditions. At no point during the course of her admission did she have anyphysical or medical complaints.Prior to discharge the [facility] team, her intensive immigration case manager, staff from [facility],Lorraine her AOT coordinator, members from her treatment team at [facility] all joined a video conference to decide the best course oftreatment for the patient as well as take Marilu's request intoconsideration. All parties involved in the meeting decided that it would be agood try for her to go and live with her friend Aroldo, who lives in [place],and to have her services transferred to [facility] as this has been herrequest. It is decided that patient will be discharged from here [facility] to pack up her belongings and sign the paperwork necessary todischarge her from [facility] and staff from [facility] will drive her to her friend Celina in [place]. Lorraine, will transfer all the necessary paperwork andarrange for her services to be completed in [place]. Cata, the treatmentcoordinator, is going to be in contact with her outpatient mental healthproviders in [place] to make the proper arrangements for transfer [...] fairDischarge DispositionPatient is being discharged back to [facility] [place]aminationMusculoskeletalMuscle Strength & Tone normalGait normalStation [...] rce(s) Supporting Document(s) ID Date Data Source [id number] 05/14/2021 09:46:00 AM EDT [place] [id number] PSYCHIATRIC ASSESSMENTPATIENT NAME: YARELI HATCH MR#: [id number] PHYSICIAN: DYLAN RBIEIROAUTHOR: Dylan Aquino DATE: 05/13/21 RM#: [id number]-gxsr-szi single white femaleChief Complaint"I had a suicidal thought due to the fact that I lost my cousin"Reason for AdmissionSuicidal ideations with 2 plan; jumping off a bridge or drinking handsanitizer. She also has increased depression and impulsive behaviorsHistory of Presenting Vwsjazx71-tcvs-dxh female was brought to the emergency department by [facility] with complaints of suicidal ideations with a plan to jump in front of amoving vehicle or drinking and ground crewman. Patient did admit upon arrival tot emergency department that she did attempt to drink hand ground crewman but wasunsuccessful due to staff intervention at her living facility, [facility]. Uponarrival to the emergency department patient was [...] the PSA. Patient is a resident at [facility] and is on an AOT.Patient met with [...] disorder, depression, and schizoaffective disorder. Patientcurrently attends [facility] and sees Yamileth for a therapist.Last appointment [...] who lives in a supportive [facility]. Patient never graduated [...] (5.0 - 8.0) 7.0 05/13 155Ur Specific [place] (1.010 - 1.025) 1.022 05/135Urine Protein (Negative) [...] 05/13 155 Urine Glucose (NEGATIVE) Negative 05/13 1822Aiycvkwbehla76/02 2349 BLOOD: Blood Culture - CANCancelled: Cancelled [...] to have her ownpersonal clothing. Cata, the potable water treatment operator, will reach out to [facility] forcollateral information as well as Lorraine Gandara. [...] in agreement shewill be discharged back to [facility].Assessment/PlanDiagnosis1. Major depressive disorderStatus Chronic2. Bipolar disorder3. Borderline [...] rce(s) Supporting Document(s) ID Date Data Source [id number] 05/13/2021 09:59:00 AM EDT [facility] Name Value Range Interpretation Code Description Data Stephanie rce(s) Supporting Document(s) LCOVID-19, CORDELL NEGATIVE [facility] This lab was ordered by [facility] and reported by [facility]. ID Date Data Source [id number] 05/13/2021 10:56:00 AM EDT [facility] Name Value Range Interpretation Code Description Data [facility] Supporting Document(s) COVID-19, CORDELL NEGATIVE NEGATIVE [facility] Methodology: Isothermal Nucleic Acid Amp [...] Emergency Use Authorization. ID Date Data Source [id number] 05/13/2021 02:58:00 AM EDT [facility] Name Value Range Interpretation Code Description Data [facility] Supporting Document(s) GLU 96 mg/dL 70-110 [facility] Patients taking Sulfasalazine may have f alsely depressedGlucose levels. Patients taking Sulfapyridine may havefalsely elevated Glucose levels. Patients should be drawnfor Glucose before the initial administration of eitherdrug. BUN 14 mg/dL 7-23 [facility] CRE 0.615 mg/dL 0.500-1.300 [facility] GFR > 60 mL/min [facility] CHLORIDE 109 mmol/L 99-110 [facility] NA 140 mmol/L 136-147 [facility] POTASSIUM 3.8 mmol/L 3.5-5.1 [facility] TCO2 25 mmol/L 20-33 [facility] ANION GAP 9.8 10.0-20.0 L [facility] CA 9.3 mg/dL 8.3-10.7 [facility] ALKALINE PHOS 99 U/L 45-117 [facility] TP 7.3 g/dL 6.0-7.8 [facility] ALB 3.7 g/dL 3.5-5.0 [facility] ESRD Dialysis patient Albumin reference range: 2.9-4.4 g/dL GL 3.6 g/dL 2.3-3.5 H [facility] A/G 1.0 1.0-2.5 [facility] T. BILIRUBIN 0.3 mg/dL 0.1-1.1 [facility] [place] Total Bilirubin is n ot recommended forpatients undergoing treatment with eltrombopag (Promacta)due to the potential for falsely elevated results. ALTI 45 U/L 6-54 [facility] Patients taking Sulfasalazine and/or Sul fapyridine may havefalsely depressed ALT levels. Patients should be drawn forALT before the initial administration of either drug. AST 23 U/L 6-38 [facility] Patients taking Sulfasalazine and/or Sul fapyridine may havefalsely depressed AST levels. Patients should be drawn forAST before the initial administration of either drug. ID Date Data Source [id number] 05/13/2021 02:18:00 AM EDT [facility] [place] Name Value Range Interpretation Code Description Data Stephanie rce(s) Supporting Document(s) WBC 9.13 x10E3/uL 4.0-10.5 [facility] RBC 4.12 x10E6/uL 4.20-5.40 [facility] Hemoglobin 11.9 g/dL 12.0-16.0 [facility] Hematocrit 37.2 % 37.0-47.0 [facility] MCV 90.3 fL 81.0-99.0 [facility] MCH 28.9 pg 27.0-31.0 [facility] MCHC 32.0 g/dL 32.7-35.6 [facility] RDW 12.9 % 11.5-14.0 [facility] Platelet count 241 x10E3/uL 150-450 [facility] ital MPV 9.5 fl 6.9-9.5 [facility] Neutrophils 63.3 % 34-64 [facility] Lymphocytes 27.4 % 25-45 [facility] Monocytes 7.7 % 1.7-10.6 [facility] Eosinophils 1.2 % 0.4-7.0 [facility] Basophils 0.2 % 0.1-2.0 [facility] Imm. Gran. 0.2 % 0.1-2.0 [facility] Abs. Neutro. 5.78 x10E3/uL 1.2-7.6 [facility] Abs. Lymph. 2.50 x10E3/uL 1.0-3.5 [facility] Abs. Will. 0.70 x10E3/uL 0.1-1.0 [facility] Abs. Eosin. 0.11 x10E3/uL 0.1-0.7 [facility] Abs. Baso. 0.02 x10E3/uL 0.0-0.1 [facility] Abs. Imm. Gran. 0.02 x10E3/uL 0.0-0.1 [facility] ANRBC% 0 % 0 [facility] ID Date Data Source [id number] 05/13/2021 02:58:00 AM EDT [facility] Name Value Range Interpretation Code Description Data Stephanie rce(s) Supporting Document(s) HCG QUAL SERUM Negative Negative [facility] ID Date Data Source [id number] 05/13/2021 02:58:00 AM EDT [facility] Name Value Range Interpretation Code Description Data Stephanie rce(s) Supporting Document(s) ETOH 0.004 g/dL NONE DETECTED H [facility] ID Date Data Source [id number] 05/13/2021 02:58:00 AM EDT [facility] Name Value Range Interpretation Code Description Data Stephanie rce(s) Supporting Document(s) ACETAMINOPHEN < 2.0 ug/mL 0-30 [facility] ID Date Data Source [id number] 05/13/2021 02:58:00 AM EDT [facility] Name Value Range Interpretation Code Description Data Stephanie rce(s) Supporting Document(s) SALICYLATE < 1.7 mg/dL 0.0-20.0 [facility] ID Date Data Source [id number] 05/13/2021 02:41:00 AM EDT [facility] Name Value Range Interpretation Code Description Data Stephanie rce(s) Supporting Document(s) PCP VISTA NEG NEGATIVE [facility] MINIMUM LEVEL OF DETECTION IS 25 ng/ml BENZODIAZEPINES POS NEGATIVE [facility] al POSITIVE RESULTS UNCONFIRMEDMINIMUM LEVE L OF DETECTION IS 200 ng/ml COCAINE VISTA NEG NEGATIVE [facility] MINIMUM LEVEL OF DETECTION IS 300 ng/ml AMPHETAMINES NEG NEGATIVE [facility] al MINIMUM LEVEL OF DETECTION IS 1000 ng/ml BARBITURATES NEG NEGATIVE [facility] al CUTOFF CONCENTRATION IS 200 ng/ml CANNABINOIDS NEG NEGATIVE [facility] al CUTOFF CONCENTRATION IS 50 ng/ml METHADONE VISTA NEG NEGATIVE [facility] al MINIMUM LEVEL OF DETECTION IS 300 ng/ml OPIATE VISTA NEG NEGATIVE [facility] MINIMUM DETECTION LEVEL IS 300 ng/ml ID Date Data Source [id number] 05/13/2021 02:30:00 AM EDT [facility] [place] Name Value Range Interpretation Code Description Data Stephanie rce(s) Supporting Document(s) URINE COLOR Yellow [facility] UAPR Turbid [facility] UGLU Negative NEGATIVE [facility] URINE BILIRUBIN Negative NEGATIVE [facility] al UKET Negative NEGATIVE [facility] USG 1.022 1.010-1.025 [facility] UBLO Negative NEGATIVE [facility] UpH 7.0 5.0-8.0 [facility] UPRO Negative Negative [facility] UUB 1.0 mg/dL 0.2-1.0 [facility] UNIT Negative Negative [facility] ULEU Trace Negative [facility] ID Date Data Source [id number] 05/13/2021 02:30:00 AM EDT [facility] Name Value Range Interpretation Code Description Data Stephanie rce(s) Supporting Document(s) URINE RBC 0-2 RBCs/HPF NONE SEEN [facility] URINE WBC 0-2 WBCs/HPF NONE SEEN [facility] URINE BACTERIA Few NONE SEEN [facility] URINE EPI. Moderate NONE SEEN [facility] [facility] URINE CRYSTAL MODERATE AMORPHOUS NONE SEEN [facility] ID Date Data Source [id number] 05/14/2021 01:39:00 AM EDT [facility] Physician DocumentationClaxton-Naveen Hinkle edical CenterName: Yareli DuvallAge: 20 yrsSex: FemaleDOB: 2000MRN: [id number] Date: 05/13/2021Time: 01:43Account#: [id number] MD: None, noneED Physician Chetan Grover [...] was also said to haveattemptedto consume hand ground crewman and active self- harm as well. Patient well-known toED stafffor multiple attempts.Historical:- Allergies: Haldol; Risperdal;- Home Meds:1. aripiprazole 400 mg intramuscular suspension,extended release syringe 400 tfdczla97 days2. ibuprofen 400 mg Oral tablet 1 [...] during both of theseepisodes..05/201:55 Order name: Acetaminophen Actahbd03/0201:55 Order name: CBC with flfaam35:55 Order name: CMPf:55 Order name: COVID-19 PROFILE+LAB:55 Order name: VZOGlk38/0201:55 Order name: Zubfmwdgt73/0201:55 Order name: Salicylate Mntzobl12/0201:55 Order name: Serum HCG Znslvvdvmojxf06/0201:55 Order name: Triage - Drug Oypqmbva39/0201:55 Order name: UAf:55 Order name: Diet - [...] vastus lateralis;09:54 Follow up: Response: No adverse :46 Drug: LORazepam 2 mg [lorazepam 2 mg/mL injection solution (1 mL)] Route:IM; Site: tlmleft vastus lateralis;09:54 Follow up: Response: No adverse fbfmleehzxc38:47 Drug: Geodon 20 mg Route: IM; Site: right deltoid;ef109:54 Follow up: Response: No adverse jvtuknqwpgv82:35 Drug: Geodon 20 mg [ziprasidone 20 mg/mL (final concentration)intramuscular solution ml4(1 mL)] Route: IM; Site: right gluteus;18:35 Drug: LORazepam 2 mg [lorazepam 2 mg/mL injection solution (1 mL)] Route:IM; Site: yb0oxtym deltoid;18:35 Drug: diphenhydrAMINE 50 mg [diphenhydramine 50 mg/mL injection solution(1 mL)] Route: ml4IM; Site: left deltoid;21:47 Not Given (Patient Refused): Topiramate 75 mg PO haqdzz553:48 Not Given (Patient Refused): Loratadine 10 mg PO lbypsc313:48 Not Given (Patient Refused): Montelukast 10 mg PO wosruo374:48 Not Given (Patient Refused): Propranolol 10 mg PO sekyyw448:48 Not Given (Patient Refused): sertraline 50 mg PO zrgzmo656:55 CANCELLED (Physician Discretion): Zosyn 3.375 grams IVPB /0301:20 Drug: Prazosin 2 mg [prazosin 1 mg capsule (2 caps)] Route: PO;jw501:20 Drug: Propranolol 10 mg [propranolol 10 mg tablet (1 tabs)] Route: PO;rt8Rxjzudqfme:Dispatcher [employer] Magaly Manjarrez RN RN tlmHNils mark MD MD yb0CfffhFortunato humphrey RN RN lz0CutymhytAmi arthur RN RN ef1Roberts, Brandon, MD MD brWest, Fayeanne, RN RN fwLyhighsmith-rainey specialty hospitalDanae RN RN yj0Pjqyypenxvc: (The following items were deleted from the chart)05/223:55 23:49 Zosyn 3.375 grams IVPB once ordered. brbr23:56 23:49 Call Lab ordered. br br Name Value Range Interpretation Code Description Data Stephanie rce(s) Supporting Document(s) ID Date Data Source [id number] 05/14/2021 01:39:00 AM EDT [facility] Nurse's NotesClaxtonF F Thompson Hospital Medical Tootie terName: Yareli AdamelAge: 20 yrsSex: FemaleDOB: 2000MRN: [id number] Date: 05/13/2021Time: 01:43Account#: [id number] MD: None, noneDiagnosis: Schizophrenia, unspecifiedPresentation:05/201:45 Presenting complaint: Brought in by [facility] Police officers #[id number], #[id number] forcomplaints of ktsuicidal ideation with plan to jump in front of a moving vehicle, alsoattempted todrink hand ground crewman but was unsuccessful.02:26 International Travel Fever No. Communicable Disease Screen: Negative forfever>/= 100 fwdegrees Fahrenheit. Communicable disease screen is negative. (-) rash orunusual skinlesion (-) travel/contact with traveler (-) respiratory symptoms.Communication.Communication Speaks Lebanese? Yes, is preferred language.02:26 Acuity: Triage 2fw02:26 [...] of amount of people live, such as fdc, family care, half-way, etc?yes. Haveyou traveled to a location with widespread or ongoing COVID-19 community [facility]or[facility]? no Have you traveled internationally [...] 400 mg intramuscular suspension,extended release syringe 400 days2. ibuprofen 400 mg Oral tablet 1 [...] apparent distress at this time. Nochanges from fm4lrdlgfjjml documented assessment.05/300:38 Reassessment: Patient appears in no apparent distress at this time. Nochanges from yq7yyjrgldnmv documented assessment.Psychosocial:05/219:29 SAFE Act Report Not Completed. [...] Ptdenies selfharm. Pt was last inpatient at [facility] on 05/06/21. [facility]. Pt has a diagnosis [...] 2020 overdose Other: BPD, ADHD.MentalHealth Admissions: 05/06/21, [facility] Current Outpatient Mental HealthServices:Therapist / Agency: [facility]. [...] notified ofpatients status at 23:13, Mental Health ASSISTANT BASEBALL COACH made aware of pt status at 22:50,JOSE LUIS Jo. Disposition: Medically cleared for disposition by Dr Grover. PsychiatricConsultis performed by phone with Dr Dylan Ribeiro NP The patient is admitted to [facility].23:15 Legal Status: Patient's legal status will be Emergency: 9.39. Commitmentpapers are nhcompleted. Pt is provided with a copy of her legal status and rights. DSM-V DXAxis Idiagnosis: Schizoaffective D/O [place] II diagnosis: Deferred [place] III diagnosis:None.[place] IV diagnosis: poo impulse control. Poor coping skills. InsurancePre-Certification: Not Required. [facility] Admission Criteria: The patient isexperiencingsuicidal ideation. The patient requires continuous observation and/or controltoprotect self, others or property. The patient's care requires a multi-modaltreatmentplan under close supervision and coordination due to the complexity andseverity of thepatient's symptoms. The patient requires administration and monitoring ofpsychoactivemedications by skilled medical providers due to the side effects of thepsychoactivemedications or significant dosage adjustments. Awaiting transfer to [facility].Transition ofcare to Pt will be escorted by [facility] and [facility] RN. The patient is not a servicemember ormilitary dependent. [place]in Suicide Severity Rating Scale: Suicidal IdeationRating 5;Intensity of Ideations Rating 25; Suicidal Behavior Rating 0.Psych:02:00 Subjective: Patient's mood is sad, Delusions are denied, Hallucinationsare denied qe3Iibeju thoughts of suicide. Plan for suicide is [...] Triage completed.fw07:28 Appears to be sleeping.tlm07:28 Psychosocial Prep Manager.tlm07:28 Sitter at bedside. Diet tray given.tlm07:50 Appears agitated. attempting multiple times to leave through the doors,security tlmofficer hayley is able to redirect her i have offered her something to take edgeoff, shewont acknowledge flex o writer operator.07:51 No Physician assisted procedures completed.tlm08:46 Notified ED [...] No apparent distress. Resting quietly.jw500:38 Sitter at bedside.ab5Qpvuxqmsixws Medications:05/208:45 Drug: diphenhydrAMINE 50 mg [diphenhydramine 50 mg/mL injection solution(1 mL)] Route: tlmIM; Site: left vastus lateralis;09:54 Follow up: Response: No adverse byjacjhxqyw79:46 Drug: LORazepam 2 mg [lorazepam 2 mg/ mL injection solution (1 mL)] Route:IM; Site: tlmleft vastus lateralis;09:54 Follow up: Response: No adverse ioeyatzscin20:47 Drug: Geodon 20 mg Route: IM; Site: right deltoid;ef109:54 Follow up: Response: No adverse utpmnalqnvk64:35 Drug: Geodon 20 mg [ziprasidone 20 mg/mL (final concentration)intramuscular solution ml4(1 mL)] Route: IM; Site: right gluteus;18:35 Drug: LORazepam 2 mg [lorazepam 2 mg/mL injection solution (1 mL)] Route:IM; Site: ym9dfydf deltoid;18:35 Drug: diphenhydrAMINE 50 mg [diphenhydramine 50 mg/mL injection solution(1 mL)] Route: ml4IM; Site: left deltoid;21:47 Not Given (Patient Refused): Topiramate 75 mg PO vtiuqw341:48 Not Given (Patient Refused): Loratadine 10 mg PO :48 Not Given (Patient Refused): Montelukast 10 mg PO zakwqo078:48 Not Given (Patient Refused): Propranolol 10 mg PO fxkorz485:48 Not Given (Patient Refused): sertraline 50 mg PO vyhpef769:55 CANCELLED (Physician Discretion): Zosyn 3.375 grams IVPB uuupde18/0301:20 Drug: Prazosin 2 mg [prazosin 1 mg capsule (2 caps)] Route: PO;jw501:20 Drug: Propranolol 10 mg [propranolol 10 mg tablet (1 tabs)] Route: PO;kk5Jebaokd:05/223:47 Decision to Hospitalize by Provider.br1:20 Disposition: Admitted to Psych with chart.zr7Pjgluqvis: unchangedInstructed on need for admit, Demonstrated understanding of instructions.Discharge Assessment: Patient verbalized understanding of dispositioninstructions.Patient has no functional deficits.01:39 Patient left the ED.mh1Nzsieyuqrj:Magaly Gray, RN RN tlmTKatelyn cr, RN Fortunato Reyes, RN JOSE LUIS yf5BqdkngbjAmi Medrano, Zeeshan Eason RN, MD MD brWest, Fayeanne, RN RN fwHolmes, Nicole nhLynch, McKenzie, RN RN fv2Xbqszvpsded: (The following items were deleted from the chart)05/207:28 07:28 Awaiting disposition, :17 23:13 Disposition: Medically cleared for disposition by Dr Grover.Psychiatric Consult [facility]0:37 00:37 Primary Nurse role handed off by Danae Ordoñez, JOSE LUIS gh6ys174:37 00:37 Fortunato Mark, JOSE LUIS is Primary Nurse. np9ne032:25 05/13 01:00 Subjective: Patient's mood is sad, Delusions are denied,Hallucinations are qc6vyzzws Having thoughts of suicide. Plan for suicide is see ntriage jw511/0301:25 05/13 01:00 Objective: Patient is cooperative, Speech is soft, Affect isflat, jw5 jw511/0301:25 05/13 01:00 Interventions: Removed personal items and placed in bag.Patient placed in fl0zsmufgyh gown. Searched person for dangerous items. Urine collected and sentfor urinedrug test. Observation Level Level 3 Sitter needed. Provider notified. Nando Charge nurse notified. Fortunato Mark RN Level 3 order placed. jw5 Name Value Range Interpretation Code Description Data Stephanie rce(s) Supporting Document(s) ID Date Data Source [id number] 05/08/2021 12:28:00 PM EDT [place] [id number] NAME: YARELI HATCH#: [id number] PHYSICIAN: HUBER MEDINA #: [id number] ADM. DATE: 05/06/21PATIENT : 00 DISCH. DATE: [50}DISCHARGE SUMMARYMHU discharge planNicotine Replacement TherapySmoking Status Current some day smokeriStopEND ENDDICT: 05/08/21 1228 Electronically SignedTRANS:05/08/21 1228 DYLAN DEVI BY:DATE SIGNED:05/08/21TIME SIGNED: 1228REPORT COPY TO: Name Value Range Interpretation Code Description Data Stephanie rce(s) Supporting Document(s) ID Date Data Source [id number] 05/08/2021 12:14:00 PM EDT [place] [id number] HEALTH DISCHARGE SUMMARYPATIENT NAME: YARELI HATCH MR#: [id number] PHYSICIAN: BROOKLYN ONEILL MDAUTHOR: Dylan Aquino DATE: 05/06/21 #: 3RDDISCHARGE DATE:McspvcoYbpnfduamtgvke17-zknt-ukj single white femaleChief Complaint"I was impulsive and did something stupid"Reason for AdmissionUnsafe behaviors with a history of poor impulse control and suicidal ideations.Patient was unable to contract for safety prior to admissionHistory of Presenting Keyhcla21-idzs-buj female who was [facility] on an involuntary statusafter ingesting a bottle of shampoo. Patient was brought here by police aftershe eloped numerous times from [facility]. Upon arrival to [facility] patient stated she was discharged before [...] to her that she is on an [facility] list [facility] as her place of [...] female who lives in a supportive housing facility,[facility]. Patient was never graduated from high [...] second degree and chargesof disorderly conductHospital CourseHospital Owoezt81-vrrg-fbv female was admitted to mental health on [...] not experience any ill side effects from medications.[facility] staff did reach out to the treatment team requesting a meeting prior todischarge with Marilu regarding her frequent hospitalizations and what safetyplans can be put into place to prevent her from coming back. The safety planwas worked out with Madelin Michel the potable water treatment operator, and [facility]. At time of discharge patient continues [...] by opening up to the staff at [facility] shefeels this would be an effective [...] is also confirmed by the staff from [facility].Patient's Discharge ConditionVital SignsVital Signs-LastResult Date TimeB/P 132/78 05/08 0822Pulse Ox 99 05/07 1234Temp 97.7 05/07 1234Pulse 63 05/07 1234Resp 16 05/07 1234Patient's Discharge ConditionDischarge Date 05/08/21Discharge Conditon stableDischarge DispositionPatient is to be discharged back to her supportive facility [facility]ExaminationMusculoskeletalMuscle Strength & Tone normalGait normalStation normalMental [...] rce(s) Supporting Document(s) ID Date Data Source [id number] 05/07/2021 05:08:00 PM EDT [facility] [place] [id number] HEALTH HISTORY AND PHYSICALPATIENT NAME: YARELI HATCH MR#: [id number] PHYSICIAN: BROOKLYN ONEILL MDAUTHOR: Ericka Dean MD DATE: 05/06/21 RM#: [id number] Complaint/Admit ReasonIngested shampoo/conditioner to end her lifeHistory of Presenting IllnessHISTORY IS LIMITED THE PT REFUSED TO BE SEEN BY THE MEDICINE MEABIVS69 yo F who presents to the hospital with police because she ingested shampooand conditoner in an effort to end her life. [facility] and told staff she [...] seen by the medicine serviceExamVital SignsVital Signs-24 HRS05/[id number] 3365 0828 1234Temp 97.5 97.7Pulse 77 63Resp 16 16B/P 128/83 123/78 136/84 115/75B/P MeanPulse Ox 96 99O2 DeliveryO2 Flow XlhfNuV0Fyol ReviewLaboratory DataRecent Labs-48 hours05/06661289 0051ChemistrySodium (136 - 147 mmol/L) 139Potassium (3.5 [...] TurbidUrine pH (5.0 - 8.0) 8.0Ur Specific [place] (1.010 - 1.025) 1.022Urine Protein (Negative) TraceUrine [...] psych serviceDATE SIGNED: 05/07/21 Electronically SignedTIME SIGNED: 6348 ERICKA DEAN MD Name Value Range Interpretation Code Description Data Stephanie rce(s) Supporting Document(s) ID Date Data Source [id number] 05/07/2021 12:49:00 PM EDT [facility] [address] PSYCHIATRIC ASSESSMENTPATIENT NAME: YARELI HATCH MR#: [id number] PHYSICIAN: BROOKLYN ONEILL MDAUTHOR: Dylan Aquino DATE: 05/06/21 RM#: [id number]-vfhz-rlr single white femaleChief Complaint"I was impulsive and did something stupid"Reason for AdmissionUnsafe behaviors with a history of poor impulse control and suicidal ideations.Patient was unable to contract for safety prior to admissionHistory of Presenting Zfuhvsm16-sbuh-scw female who was admitted to mental health on an involuntary statusafter ingesting a bottle of shampoo. Patient was brought here by police aftershe eloped numerous times from [facility]. Upon arrival to [facility] patient stated she was discharged before [...] to [facility] as her place of residence. Patient was [...] female who lives in a supportive housing facility,[facility]. Patient was never graduated from high [...] (5.0 - 8.0) 8.0 05/06 41Ur Specific [place] (1.010 - 1.025) 1.022 05/06 41Urine Protein [...] Patient will be monitored by staff in [facility] the nurses station for the next [...] medicationuse and the medications efficacy. Madelin, the potable water treatment operator will be incontact with [facility] and the [facility] team Assessment/PlanDiagnosis1. Major depressive disorderStatus Chronic2. [...] rce(s) Supporting Document(s) ID Date Data Source [id number] 05/06/2021 01:31:00 AM EDT [facility] Name Value Range Interpretation Code Description Data Stephanie rce(s) Supporting Document(s) ACETAMINOPHEN < 2.0 ug/mL 0-30 [facility] ID Date Data Source [id number] 05/06/2021 01:31:00 AM EDT [facility] Name Value Range Interpretation Code Description Data Stephanie rce(s) Supporting Document(s) SALICYLATE < 1.7 mg/dL 0.0-20.0 N [facility] ID Date Data Source [id number] 05/06/2021 01:31:00 AM EDT [facility] Name Value Range Interpretation Code Description Data Stephanie rce(s) Supporting Document(s) ETOH NONE DETECTED N [facility] NONE DETECTED ID Date Data Source [id number] 05/06/2021 01:31:00 [facility] Name Value Range Interpretation Code Description Data Stephanie rce(s) Supporting Document(s) GLU 99 mg/dL 70-110 [facility] Patients taking Sulfasalazine may have f alsely depressedGlucose levels. Patients taking Sulfapyridine may havefalsely elevated Glucose levels. Patients should be drawnfor Glucose before the initial administration of eitherdrug. BUN 13 mg/dL 7-23 [facility] CRE 0.661 mg/dL 0.500-1.300 [facility] GFR > 60 mL/min [facility] CHLORIDE 109 mmol/L 99-110 [facility] NA 139 mmol/L 136-147 [facility] POTASSIUM 3.9 mmol/L 3.5-5.1 [facility] TCO2 25 mmol/L 20-33 [facility] ANION GAP 8.9 10.0-20.0 [facility] CA 9.3 mg/dL 8.3-10.7 [facility] ALKALINE PHOS 110 U/L 45-117 [facility] TP 8.0 g/dL 6.0-7.8 [facility] ALB 4.0 g/dL 3.5-5.0 [facility] ESRD Dialysis patient Albumin reference range: 2.9-4.4 g/dL GL 4.0 g/dL 2.3-3.5 [facility] A/G 1.0 1.0-2.5 [facility] T. BILIRUBIN 0.4 mg/dL 0.1-1.1 [facility] The [facility] [place] Total Bilirubin is n ot recommended forpatients undergoing treatment with eltrombopag (Promacta)due to the potential for falsely elevated results. ALTI 58 U/L 6-54 [facility] Patients taking Sulfasalazine and/or Sul fapyridine may havefalsely depressed ALT levels. Patients should be drawn forALT before the initial administration of either drug. AST 32 U/L 6-38 [facility] Patients taking Sulfasalazine and/or Sul fapyridine may havefalsely depressed AST levels. Patients should be drawn forAST before the initial administration of either drug. ID Date Data Source [id number] 05/06/2021 01:10:00 AM EDT [facility] Name Value Range Interpretation Code Description Data Stephanie rce(s) Supporting Document(s) WBC 8.31 x10E3/uL 4.0-10.5 [facility] RBC 4.31 x10E6/uL 4.20-5.40 [facility] Hemoglobin 12.7 g/dL 12.0-16.0 [facility] Hematocrit 38.3 % 37.0-47.0 [facility] MCV 88.9 fL 81.0-99.0 [facility] MCH 29.5 pg 27.0-31.0 [facility] MCHC 33.2 g/dL 32.7-35.6 [facility] RDW 12.5 % 11.5-14.0 [facility] Platelet count 274 x10E3/uL 150-450 N [facility] ital MPV 9.8 fl 6.9-9.5 H [facility] Neutrophils 69.5 % 34-64 [facility] Lymphocytes 23.2 % 25-45 L [facility] Monocytes 6.0 % 1.7-10.6 [facility] Eosinophils 0.5 % 0.4-7.0 [facility] Basophils 0.4 % 0.1-2.0 [facility] Imm. Gran. 0.4 % 0.1-2.0 [facility] Abs. Neutro. 5.78 x10E3/uL 1.2-7.6 [facility] Abs. Lymph. 1.93 x10E3/uL 1.0-3.5 [facility] Abs. Will. 0.50 x10E3/uL 0.1-1.0 [facility] Abs. Eosin. 0.04 x10E3/uL 0.1-0.7 [facility] Abs. Baso. 0.03 x10E3/uL 0.0-0.1 [facility] Abs. Imm. Gran. 0.03 x10E3/uL 0.0-0.1 N [facility]ital ANRBC% 0 % 0 [facility] ID Date Data Source [id number] 05/06/2021 12:41:00 AM EDT [facility] Name Value Range Interpretation Code Description Data Stephanie rce(s) Supporting Document(s) LCOVID-19, [facility] by [facility] and reported by [facility]. ID Date Data Source [id number] 05/06/2021 01:27:00 AM EDT [facility] Name Value Range Interpretation Code Description Data Stephanie rce(s) Supporting Document(s) PCP VISTA NEG NEGATIVE [facility] MINIMUM LEVEL OF DETECTION IS 25 ng/ml BENZODIAZEPINES POS NEGATIVE [facility] al POSITIVE RESULTS UNCONFIRMEDMINIMUM LEVE L OF DETECTION IS 200 ng/ml COCAINE VISTA NEG NEGATIVE [facility] MINIMUM LEVEL OF DETECTION IS 300 ng/ml AMPHETAMINES NEG NEGATIVE [facility] al MINIMUM LEVEL OF DETECTION IS 1000 ng/ml BARBITURATES NEG NEGATIVE [facility] al CUTOFF CONCENTRATION IS 200 ng/ml CANNABINOIDS NEG NEGATIVE [facility] al CUTOFF CONCENTRATION IS 50 ng/ml METHADONE VISTA NEG NEGATIVE [facility] MINIMUM LEVEL OF DETECTION IS 300 ng/ml OPIATE VISTA NEG NEGATIVE [facility] MINIMUM DETECTION LEVEL IS 300 ng/ml ID Date Data Source [id number] 05/06/2021 01:25:00 AM EDT [facility] Name Value Range Interpretation Code Description Data Stephanie rce(s) Supporting Document(s) COVID-19, CORDELL NEGATIVE NEGATIVE [facility] Methodology: Isothermal Nucleic Acid Amp [...] Emergency Use Authorization. ID Date Data Source [id number] 05/06/2021 01:11:00 AM EDT [facility] Name Value Range Interpretation Code Description Data Stephanie rce(s) Supporting Document(s) HCG QUAL URINE Negative [facility] ID Date Data Source [id number] 05/06/2021 01:11:00 AM EDT [facility] Name Value Range Interpretation Code Description Data Stephanie rce(s) Supporting Document(s) URINE COLOR Yellow [facility] UAPR Turbid [facility] UGLU Negative NEGATIVE [facility] URINE BILIRUBIN [facility] Negative NEGATIVE [facility] USG 1.022 1.010-1.025 [facility] UBLO Negative NEGATIVE [facility] UpH 8.0 5.0-8.0 [facility] UPRO Trace Negative [facility] UUB 1.0 mg/dL 0.2-1.0 [facility] UNIT Negative Negative [facility] ULEU Negative Negative [facility] ID Date Data Source [id number] 05/06/2021 04:51:00 PM EDT [facility] Physician DocumentationClmilton-Naveen Hinkle edical CenterName: Yareli DuvallAge: 20 yrsSex: FemaleDOB: 2000MRN: [id number] Date: 05/06/2021Time: 00:32Account#: [id number] MD:ED Physician Richie اللعيposition Summary:05/06/21 13:58Hospitalization OrderedHospitalization Status: Inpatient AdmissionseProvider: Anitra [...] 400 mg intramuscular suspension,extended release syringe 400 ezwedyd09 days2. ibuprofen 400 mg Oral tablet 1 [...] thoughts of suicide. Megestrol drinking shampooisattempt for :44 Unable to obtain exam due to patient being uncooperative.Vital Signs:00:37 BP 137 / 84; Pulse 84; Resp 16; Temp 97.7; Pulse Ox 99% ; Weight 104.33kg; Height 5 tp2ft. 6 in. ; Pain 0/10;16:31 BP 122 / 83 (auto/); Pulse 77 MON; Resp 18; Pulse Ox 96% ;ef100:37 Body Mass Index 37.12 (104.33 kg, 167.64 cm)tp200:37 Pain Scale: Dzxepby8MKW:00:47 Patient medically screened.br06:44 Data reviewed: vital signs, nurses notes, EMS record, old medicalrecords, lab test brresult(s).11:37 ED course: Patient has refused to comply with staff, is verbally abusiveand sedisruptive, and is being physically restrained at this time. She has yfmtrcek50 mg ofIM Geodon and will get 2 mg of IM Ativan..04/2600:38 Order name: Acetaminophen Level; Complete Time: 10:26ny953/2610:32 Interpretation: Within normal limits.se04/2600:38 Order name: CBC with diff; Complete Time: 10:90dv0300:32 Interpretation: Within normal limits.:38 Order name: CMP; Complete Time: 10:24ml442/2610:33 Interpretation: Normal except: TP 8.0; ALTI 58.:38 Order name: COVID-19 PROFILE+LAB; Complete Time: 10:74cv179/2610:33 Interpretation: Within normal limits.se04/2600:38 Order name: ETOH; Complete Time: 10:93jb232/2610:33 Interpretation: Within normal limits.:38 Order name: Qfjiwkert168/2600:38 Order name: Salicylate Level; Complete Time: 10:27wr643/2610:33 Interpretation: Within normal limits.:38 Order name: Triage - Drug Screen; Complete Time: 10:40cs647/2610:33 Interpretation: Normal except: BENZODIAZEPINES POS.se04/2600:38 Order name: UA; Complete Time: 10:81vh247/2610:33 Interpretation: Within normal limits.:38 Order name: Urine HCG Qualitative; Complete Time: 10:66yu0612610:33 Interpretation: Within normal limits.:38 Order name: Diet - Mental Health Tray (call dietary); Complete Time:00:42 tp210:38 Order name: Belongings List; Complete Time: 13:56ml692/2600:38 Order name: Document Weight and Height for BMI; Complete Time: 00:74cy203/2600:38 Order name: Mental Health Evaluation; Complete Time: 13:82fu407/2600:38 Order name: Mental Health Level 3; Complete Time: 13:29bl576/2600:38 Order name: VS q shift; Complete Time: 00:25wf8Sirdemise Medications:09:23 Drug: Ondansetron 8 mg Route: PO;jl11:41 Fol low up: Response: Nausea is sgdrjaqkvrb172:29 Drug: Geodon 20 mg Route: IM; Site: left deltoid;ef113:48 Follow up: Response: Anxiety gawliobumjz331:38 Drug: LORazepam 2 mg Route: IM; Site: right vastus lateralis;ef113:48 Follow up: Response: Anxiety qbyyijdndwo4Dkfqytdicp:Dispatcher [employer] Kylie Fishman MD MD seHilborne, Erica, RN RN hj3EpIuzvaBertha Collier RN RN jlPutney, Taylor, RN RN xl1TzhtuxsZeeshan browne MD MD br Name Value Range Interpretation Code Description Data Stephanie rce(s) Supporting Document(s) ID Date Data Source [id number] 05/06/2021 04:51:00 PM EDT [facility] terName: Yareli DuvallAge: 20 yrsSex: FemaleDOB: 2000MRN: [id number] Date: 05/06/2021Time: 00:32Account#: [id number] 5BPrandrewte MD:Diagnosis: Major depressive disorder, recurrent, unspecified;Borderlinepersonality disorderPresentation:04/2600:34 Presenting complaint: Patient states: discharged from mental health floor05/05/21. ip4Shvbe a bottle of shampoo. Went to [facility], eloped, police brought pthere. Ptstates she was [...] of amount of people live, such as fdc, familycare,half-way, etc? no. Have you traveled to a location with widespread or ongoingCOVID-19community spread or outside of [facility]? no Have you traveled internationallyor hadcontact with someone that has traveled and has been ill in the past 3 weeks? noHaveyou received the COVID vaccine? No. Communicable Disease Screen: Negative forfever>/=100 degrees Fahrenheit. Communicable disease screen is negative. CommunicationSpeaksEnglish? Yes, is preferred language.00:34 Acuity: Triage 7dj382:34 Acuity Assignment: Triage 2vo497:34 Method Of Arrival: Kxmvaelz4Btwnea Assessment:00:36 General: Appears in no apparent distress, Behavior is appropri ate forage, cooperative. dz7Gpmzvs Screening: (1)Signs/symptoms infection No. Pain: Denies pain. [...] 400 mg intramuscular suspension,extended release syringe 400 yghfini43 days2. ibuprofen 400 mg Oral tablet 1 [...] threats or abuse. Denies injuries from another.Nutritional ji1hboybntib: No deficits noted. Offer of HIV testing: patient was previouslyofferedscreening. Fall Risk None identified.Assessment:00:42 Reassessment: No changes from previously documented assessment.tp211:05 General: pt repeatedly walking out of unit to doorway. does not walk outand easily klpredirected back in. PSA aware.11:29 Reassessment: attempted to elope; uncooperative and attempting to assaultstaff; code uh8tfmyzi called.11:39 Reassessment: screaming continuing to assault staff; placed in restrains.ef112:30 Reassessment: Patient states feeling better. Patient states symptoms haveimproved. klpreleased from restraints and walked to BR without incident.13:47 Reassessment: Patient appears in no apparent distress at this time.uw4Tvakomqziebr:09:59 SAFE Act Report Not Completed. Intervention: Observation Level 3. Mentalhealth consult [facility] initiated at 09:59.10:46 Referral Information: Evaluation referral is generated by a policeagency: [facility]. The patient was referred for evaluation because Pt states she drank abottle ofshampoo last night and that she was brought to [facility] where she elopedand wasbrought here on a pickup order.11:02 Subjective: The patients chief complaint is Pt presents to the ED withState Police on nha pickup order due to the [facility], pt states she currently lives at [facility] and does not know if they [...] kill herself. Pt states she was transported [facility] where she eloped three times. Pt states on the third time, she [place]back [place] and made it to her apartment where the State Police had a pickup order tobring thept to [facility] for a psych evaluation. Pt states [...] [facility] [place] [facility] and has herfirstintake appointment with them on Wednesday (05/09). Pt denies legal issues. Ptdeniesaccess to guns. Delusions are denied, Hallucinations are denied. Patient's moodisdepressed, Having thoughts of suicide. Denies suicidal plan.11:49 Patient reports history of anxiety, Bipolar Disorder, Depression, panicattacks, nhpost-traumatic stress disorder, self -mutilation, sleep disturbance, suicideattempt:Overdose in February 2020 Mental Health Admissions: multiple admissions, bbiyKXDZ56 Current Outpatient Mental Health Services: Therapist / Agency:[facility]. Living Environment: Family / Home Support: [...] by screaming at them, andthreatening to elope co(which the pt did a few times prior). [...] off the bridge when I eloped from [facility]." Pt isstill inrestraints and calmed down at this time. Pt is being monitored by staff andvitals arebeing taken every 15 minutes.15:39 Notification to family of patient status is not currently needed orappropriate. nhConsultation: Psych MD informed of patient's status at 13:10, ED MD notified ofpatients status at 13:30, Mental Health ASSISTANT BASEBALL COACH made aware of pt status at 13:15.Disposition: Medically cleared for disposition by Dr العلي. PsychiatricConsult isperformed by phone with Dr Oneill The patient is admitted to [facility].LegalStatus: Patient's legal status will be Emergency: 9.39. Commitment papers arecompleted. Pt has been provided with their legal status and rights. DSM-V DXAxis Idiagnosis: Major Depressive D/O Fairpoint II diagnosis: Deferred Fairpoint III diagnosis:None.Fairpoint IV diagnosis: poor coping skills/poor impulse control. InsurancePre-Certification: Not Required. [facility] Admission Criteria: The patient has had [...] Transition of careto Ptwill be transported to [facility] with PSA and MHW.16:22 Rankin Suicide Severity Rating Scale: Suicidal Ideation Rating 5;Intensity of im2Bflafkygu Rating 25; Suicidal Behavior Rating 0.Psych:00:37 Subjective: Patient's mood is sad, Delusions are denied, Hallucinationsare denied gi4Rtsgyb thoughts of suicide. Denies suicidal plan. Objective: [...] 37.12 (104.33 kg, 167.64 cm)tp200:37 Pain Scale: Pfkoeph5YI Course:00:33 Patient arrived in ED.tp200:34 Triage completed.tp200:42 Patient has correct armband on for positive identification. Placed ingown. Bed in low wp0egvojpct. Call light in reach. Sitter at bedside.00:42 No Physician assisted procedures completed.tp200:46 Zeeshan Grover MD is Attending Physician.br00:47 Breonna Marie RN is Primary Nurse.tp210:32 Attending Physician role handed off by Zeeshan Grover MDse10:32 Kylie العلي MD is Attending Physician.se13:47 Appears to be sleeping.ef113:57 Brooklyn Oneill MD is Hospitalizing Provider.seAdministered Medications:09:23 Drug: Ondansetron 8 mg Route: PO;jl11:41 Follow up: Response: Nausea is hvplbfojfhk348:29 Drug: Geodon 20 mg Route: IM; Site: left deltoid;ef113:48 Follow up: Response: Anxiety kiugndaldwn337:38 Drug: LORazepam 2 mg Route: IM; Site: right vastus lateralis;ef113:48 Follow up: Response: Anxiety nkryxynvjnf1Mwkuzgb:13:58 Decision to Hospitalize by Provider.se16:09 Disposition: Admitted to Mmjtokd187:09 Condition: stable, Provider notified of abnormal vital signs.16:09 Discharge instructions given to patient, Instructed on need for admit,Demonstratedunderstanding of instructions.16:09 Discharge Assessment: Patient verbalized understanding of dispositioninstructions.Patient has no functional deficits.16:51 Patient left the ED.zz5Qroruegjgo:Елена Hugo RN RN klpElliott, Suzanne, MD MD seHilborne, Erica, RN RN fz7NfEtmlcBertha Collier RN RN jlPutney, Taylor, RN RN su6ZcousnsZeeshan browne MD MD brHolmes, [facility] [facility] [place] nc4Wgoqhhhogic: (The following items were deleted from the chart)00:49 00:34 Presenting complaint: Patient states: discharged from mental [facility] tp21. Drank a bottle of shampoo. Went to [facility], eloped, policebrought pthere. tp211:05 10:46 Referral Information: Evaluation referral is generated by a policeagency: [facility]. The patient was referred for evaluation because Pt states she drank abottle ofshampoo last night and that she was brought to [facility] where she elopedand wasbrought here on a pickup order co11:48 11:02 Subjective: The patients chief complaint is Pt presents to the [facility] on a pickup order due to the pt drinking [facility], pt states she currently lives at [facility] in [place] and does not know if they will accept her back there. Ptstatesher "maybe" not being let back there is stressing her out. Pt admits at 1845 PMlastnight she drank a regular bottle of shampoo and conditioner. co11:56 11:02 Subjective: The patients chief complaint is Pt presents to the [facility] on a pickup order due to the pt drinking a bottle of [facility] During [facility], pt states [facility] [place] and does not know if they will [...] to kill herself. [facility]. Pt states on the third time,sheeloped back to [facility] and made it to her apartment where the State Police had apickuporder to bring the pt to [facility] for a psych evaluation. Pt states [...] rce(s) Supporting Document(s) ID Date Data Source [id number] 05/05/2021 10:14:00 PM [facility] Name Value Range Interpretation Code Description Data Stephanie rce(s) Supporting Document(s) Ethanol Less than 10.0 Normal (applies to non-numeric r esults) [facility] ID Date Data Source [id number] 05/05/2021 09:47:[facility] Name Value Range Interpretation Code Description Data Stephanie rce(s) Supporting Document(s) White Blood Count 3.5-10.5 Normal (applies to non-numeri c results) [facility] Red Blood Count 3.90-5.00 Normal (applies to non-numeric results) [facility] Hemoglobin 12.0-15.5 Normal (applies to non-numeric resul ts) [facility] Hematocrit 34.9-44.5 Normal (applies to non-numeric resul ts) [facility] Mean Corpuscular Volume 81.2-95.1 Normal (applies to non- numeric results) [facility] Mean Corpuscular Hgb 25.6-32.2 Normal (applies to non-num deena results) [facility] Mean Corpuscular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 Observation [...] Ptreportsthat she feels that she needs intermediate manager treatment because she feels nothingelse isworking. Pt has a long history of being inpatient for mental health at [facility]iff[facility] facilities. Pt was last inpatient at [facility] was April 09, 2021. Pthas adiagnosis of Anxiety, Depression, Borderline Personality Disorder. Pt denies HIandhallucinations. Delusions are denied, Hallucinations are denied. Patient's moodisdepressed, Having thoughts of suicide. Plan for suicide is overdose or hangself.01:05 Narrative PSA spoke to Zohra at [facility] [phone] who states that the pttells them lg1wqqd she is suicidal every day and she does not understand what is going on.She statesthat this is an every day thing with going to a hospital and gets gettingdischarged.She states that they are lost of what to do at this point and feel that [facility].01:13 Patient reports history of anxiety, Bipolar Disorder, Depression, self-mutilation, hq2Euvlq: BPD. Mental Health Admissions: multiple at multiple facilities last [facility]04[facility]21 Current Outpatient Mental Health Ser vices: Therapist / Agency:Grayson/Zev at [facility]. Living Environment: Family / Home Support: fair Thepatientcurrently lives in a [facility] apartment. The patient is single. Detox [...] took it from pt. Shewent to the tg9zgwdjncr then left the ED on the ramp, refusing to come inside. [employer] was called.Pt wasput in 4 point restraints.02:40 Transfer plan is communicated to Zohra at [facility]. Consultation: Psych MDinformed of nz3kpxwekp's status at 02:00, ED MD notified of patients status at 02:40, MentalHealth ERRN made aware of pt status at 02:15. Disposition: Medically cleared fordisposition byDr Levy. Psychiatric Consult is performed by phone with Dr Dylan Clark NPThepatient is admitted to [facility] Patient report is given to Comfort AMAYA. LegalStatus:Patient's legal status will be Emergency: 9.39. Commitment papers arecompleted. pt hasbeen provided with the copy of her legal status and rights. DSM-V DX [place] Idiagnosis:Schizoaffective D/O. Insurance Pre-Certification: Not Required. [facility] AdmissionCriteria: The patient is experiencing suicidal ideation. The patient requirescontinuous observation and/or control to protect self, others or property. Thepatient's care requires a multi-modal treatment plan under close supervisionandcoordination due to the complexity and severity of the patient's symptoms. Thepatientrequires administration and monitoring of psychoactive medications by skilledmedicalproviders due to the side effects of the psychoactive medications orsignificant dosageadjustments. Awaiting transfer to [facility]. Transition of care to pt will beescorted byPSA and security. The patient is not a service shop foreman or dependent.ColumbiaSuicide Severity Rating Scale: Suicidal Ideation Rating 5; Intensity ofIdeationsRating 25; Suicidal Behavior Rating 0.Psych:04/1523:32 Subjective: Patient's mood is sad, Delusions are denied, Hallucinationsare denied zd5Dwkecz thoughts of suicide. Plan for suicide is hang self or OD. Objective:Patient iscooperative, Speech is normal, Affect is appropriate. Interventions: Removedpersonalitems and placed in bag. Patient placed in hospital gown. Searched person fordangerousitems. Observation Level Level 3 Sitter needed. Provider notified. [facility] nurse notified. Fortunato Mark [...] for positive identification. Placed ingown. Sitter at kd5efabzim.01:00 No Physician assisted procedures completed.jw501:09 Ramón Levy MD is Attending Physician.na102:00 Sitter at bedside.jw503:20 Brooklyn Oneill MD is Hospitalizing Provider.na104:33 Sitter at bedside.cv9Rtdomvqneiqr Medications:No medications were administeredOutcome:03:21 Decision to Hospitalize by Provider.na105:05 Disposition: Admitted to Psych with chart.jw505:05 Condition: netqkdxyg68:05 Instructed on need for admit.05:05 Discharge Assessment: Patient verbalized understanding of dispositioninstructions.Patient has no functional deficits.05:06 Patient left the ED.hz9Hyxkkoqhnl:Ramón Levy MD MD zu3KncijFortunato humphrey, RN RN yj3OnwjklskUsha Adams pj5Nhfvkcftijr: (The following items were deleted from the chart)01:01 00:54 Subjective: The patients chief complaint is Pt presents to the EDas a walk in [employer] for suicidal ideations. Pt had left [...] that she feels that she needs intermediate manager treatment because she feelsnothingelse is wo rking. Pt has a [facility] was [facility] inpatient at [facility] . [id number] 01:15 Narrative Pt walked to bathroom then left ED on ramp. [place]. [place] [id number] Name Value Range Interpretation Code Description Data Stephanie rce(s) Supporting Document(s) ID Date Data Source [id number] 04/25/2021 11:05:00 PM EDT [facility] Name Value Range Interpretation Code Description Data Stephanie rce(s) Supporting Document(s) LCOVID-19, CORDELL NEGATIVE [facility] This lab was ordered by [facility] and reported by [facility]. ID Date Data Source [id number] 04/26/2021 12:17:00 AM EDT [facility] Name Value Range Interpretation Code Description Data Stephanie rce(s) Supporting Document(s) COVID-19, CORDELL NEGATIVE NEGATIVE [facility] Methodology: Isothermal Nucleic Acid Amp lification [...] Emergency Use Authorization. ID Date Data Source [id number] 04/24/2021 03:18:28 PM [facility] INFORMATIONPatient MRN Name Date of Age Gend*PT [id number] Yareli Hatch 00 20 years M CPEPPT Location Admission Date/Time Visit ID Attending ProviderNONE 04/24/21 1315 --- Laureen Luis MD([id number]) EPI ID CSN Admitting Provider [id number] Attestation signed by Laureen Luis MD at 04/24/2021 3:18 PMInitial time of commencing Psychiatrist [id number] encounter with patient:04/24/21 1440 : Laureen Luis MDI have examined the patient, [id number], and have personally participated inperforming a psychiatric [...] treatment plan with the patient and team [facility] PSYCHIATRIC ASSESSMENTPatient Name: Yareli Galindo at [facility]: 04/24/21 1305Psych DIRECTOR PROPERTY First Contact: Yes (04/24/21 1331 : Aysha Valles NP)Chief ComplaintChief ComplaintPatient presents with Psychiatric Evaluation Pt's name is Daisy, he/him pronouns. [facility] EMS [facility] presenting for SI w/o plan. Lives in transitional living. Was [facility] ago. Presents often to [place] for SI per ED staff.Current StressorsCurrent Stressors: Pyschiatric SymptomsHistory of Present IllnessThe patient is a 20-year-old transgender individual (biological female,identifies as male gender, prefers he/him pronouns, preferred name "Daisy"). Thepatient was transferred to [facility] from [facility] ED in [facility] to reports of vague suicidal [...] back to the ER until they place [facility] an new retirement". Thus, these "suicidal statements" appear to be made huyen conditional basis if new housing is secured. Patient is fully connected withoutpatient mental health treatment providers, and an AOT order in [facility] (AOT coordinator is Laureen Alarcon ([phone]) and immigration case manager Taye ([phone]). [facility] also [facility], Mr. Grayson Farley. Has a psychiatricprescriber but patient cannot recall the prescribers name, reports compliancewith medication. Patient resides in a supervised housing program, staffadministers medications at scheduled intervals. Patient denies use of illicitdrugs and does not drink alcohol (UDS obtained at [facility] EDn egative). Patient does add that there is another stressor of pending legalcharges from reportedly assaulting a nurse, resulting in harassment charge, thisoccurred at [facility]. Patient has been calm and cooperative [...] today, [facility] as he does not currently meet criteria forinpatient psychiatric hospitalization. Patient expressed understanding of thisthough tells me that he will likely represent to another ED (not for any acuteproblem, cites housing as primary stressor). Social work consult has beenordered, case discussed with CPEP team including RN, hospice social worker and .Treatment plan goals to be addressed and resolved with hospice social worker, see notes.Addendum: I spoke with patient's AOT coordinator Ms. Drewsey Dorian. Susanxplains that patient is a former [facility] resident, now she is a sortof [facility] resident as she lives in this transitional living facilitywith 24/7 staff in this [facility]. Laureen [facility]. [facility] ([place] [place]) [facility] [place] Laureen is aware that Kaiden hubbell is [facility], Lorraine states that this is fine if the respite facility is [facility], Medicaid transportation will bring her back to her communityresidence [facility] when needed. Ms. Alarcon would like to beupdated when a final disposition is made, she can be reached at [phone].Patient InfoHistory provided by: patient, medical recordsLanguage deaf interpreter used?: NoHPI: Mental Health ProblemPresenting Symptoms: anxiety (Made vague suicidal statements conditional on ifshe is discharged back to her community residence or not, states she would notbe suicidal if she stays in the hospital or goes to a respite facility, no planor intent to harm self or others, no psychosis)Patient accompanied by: (Sent from [facility] ED)Degree of incapacity (severity) : mildTiming: rareProgression: improvingChronicity: chronicContext : Current interpersonal stressorTreatment compliance: all of the timeRelieved by: antipsychotics, mood stabilizersIneffective Treatments: none triedAssociated symptoms: irritabilityRisk factors: (borderline personality disorder)Care Coordination/CollateralObtained, see above.HistoryPast Psychiatric HistoryOutside Treatment HistoryTreatment History Location Date of Last Tx Type of Tx Tx Reason/Dx Tx Length of Stay Tx helpful?Drug/Alcohol Rehab? Records Requested? Comments [facility] March 2019 Inpatient Suicidal thoughts 24 hours No [facility] 2017 Inpatient Suicidal thoughts 1 year [facility] 2008 Inpatient SI a few months [facility] [...] Memory: IntactInsight: GoodJudgment: Good (Adequate)Orientation: Appropriately Oriented s5Dlfmijmn Toward Examiner: CooperativeAssociations: No loosening evidentFund of [...] end yourlife)? 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 reported to paper mill manager that she "drank some mouthwash" 3weeks ago [...] to the hospital because he dislikes his retirement, wants usto get a new retirement for him, future and goal oriented, no [...] plan goals to beaddressed and resolved with hospice social worker, see notesPlan/Assessment #2: No medication changes, c ontinue home medication regimen asprescribedPlan/Assessment #3: Chart reviewed, outpatient treatment team to be contacted byEP hospice social worker (social work consult ordered)General Treatment Plan - GOAL: The patient will have stabilization of presentingsymptoms in order to progress towards discharge from [facility] and have identifiedthe resources available until outpatient follow up.OBJECTIVE: The patient will be assisted with support resources post discharge:While at [facility], the RN or carry in worker will have a one on one conversation withthe patient to verbally identify their individual supports post discharge.,While at [facility], the RN or Supervisor Fabrication will have a one on one conversation withthe patient to verbally identify whom to contact for collateral information andobtain patient consent in writing., While at [facility], the RN or Supervisor Fabrication willhave a one on one conversation with the patient to verbally identify what followup resources will be most beneficial to the patient., While at [facility], the RN orSocial Worker will have a one on one conversation with the patient to verballyidentify any of their perceived and/or actual barriers to post discharge care.,While at [facility], the RN or Supervisor Fabrication will have a one on one conversation [...] are not impaired while atCP.: While at [facility], the RN or carry in worker will have a one on oneconversation with the patient to verbally identify their triggers for anxiety.,While at [facility], the RN or Supervisor Fabrication will have a one on one conversation [...] No changes [] No side effectsBilling Code: [id number] signed byLonnie Villegas Owfrlwziriqc46/14/21 1459Lonnie Villegas Ttjqfhesnmuq97/14/21 1500 Name Value Range Interpretation Code Description Data Stephanie rce(s) Supporting Document(s) ID Date Data Source [id number] 04/23/2021 10:55:00 PM EDT [facility] Name Value Range Interpretation Code Description Data Stephanie rce(s) Supporting Document(s) Respiratory specimen severe acute respir atory syndrome coronavirus 2 (SARS-CoV-2) RNA Negative (qualifier value) [facility] This lab was ordered by [facility] and reported by . ID Date Data Source [id number] 04/23/2021 11:18:00 PM EDT [facility] Name Value Range Interpretation Code Description Data Stephanie rce(s) Supporting Document(s) SARS-CoV-2 RNA Negative Normal (applies to non-numeric r esults) [facility] Negative results should be treated as [...] Certificate of Accreditation. Factsheets for healthcare providers: https://www.fda.gov/media/836510/download Factsheets for patients: https://www.fda.gov/media/058903/download The ID NOW Instrument is a rapid molecular in vitro diagnostic test utilizing an isothermal nucleic acid amplification technology intended for the qualitative detection of nucleic acid from the SARS-CoV-2 viral RNA. THIS IS A STATE REPORTABLE COMMUNICABLE DISEASE. Manual entry verified by Megan Murphy 04/23/21 2317 ID Date Data Source [id number] 04/23/2021 10:16:00 PM EDT [facility] Name Value Range Interpretation Code Description Data Stephanie rce(s) Supporting Document(s) Troponin I 0.000-0.056 Normal (applies to non-numeric resu lts) [facility] ID Date Data Source [id number] 04/23/2021 10:16:00 PM EDT [facility] Name Value Range Interpretation Code Description Data Stephanie rce(s) Supporting Document(s) Sodium 141 mmol/L 136-145 Normal (applies to non-numeric resul ts) [facility] Potassium 3.5-5.1 Normal (applies to non-numeric resul ts) [facility] Chloride 106 mmol/L 98-107 Normal (applies to non-numeric resul ts) [facility] Carbon Dioxide CO2 21-32 Normal (applies to non-numer ic results) [facility] Anion Gap 5.0-16.0 Normal (applies to non-numeric resul ts) [facility] BUN 18 mg/dL 7-18 Normal (applies to non-numeric results) [facility] Creatinine,Serum 0.7-1.2 Normal (applies to non-numeric results) [facility] GFR >60 Normal (applies to non-numeric results) [facility] Glucose Level 108 mg/dL 60-99 Above high normal [facility] Reference range is only applicable when patient is fasting Note the following drug interference: Sulfasalazine Sulfapyridine Can see falsely depressed Can see falsely elevated result with up to 17% results with up to 11% decrease in measurement increase in measurement Recommend patients be collected for this test prior to administration of either drug. Calcium 8.5-10.1 Normal (applies to non-numeric resul ts) [facility] Bilirubin,Total 0.1-1.9 Normal (applies to non-numeric results) [facility] SGOT(AST) 34 U/L 15-37 Normal (applies to non-numeric resul ts) [facility] Note the following drug interference: Sulfasalazine Sulfapyridine Can see falsely depressed Can see falsely elevated result with up to 10% results with up to 10% decrease in measurement increase in measurement Recommend patients be collected for this test prior to administration of either drug. SGPT(ALT) 57 U/L 12-78 Normal (applies to non-numeric resul ts) [facility] Note the following drug interference: Sulfasalazine Sulfapyridine Can see falsely depressed Can see falsely elevated result with up to 29% results with up to 10% decrease in measurement increase in measurement Recommend patients be collected for this test prior to administration of either drug. Alkaline Phosphatase 125 U/L 38-126 Normal (applies to non-num deena results) [facility] can increase Alkaline Phosp le vels up to 2 times the normal adult value. Normal values for children and adolescents are 2 to 3 times the normal adult value. Total Protein 6.0-8.2 Normal (applies to non-numeric re sults) [facility] Albumin Level 3.4-5.0 Normal (applies to non-numeric re sults) [facility] ID Date Data Source [id number] 04/23/2021 10:16:[address] [facility] Value Range Interpretation Code Description Data Stephanie rce(s) Supporting Document(s) Magnesium 1.8-2.4 Normal (applies to non-numeric resul ts) [facility] ID Date Data Source [id number] 04/23/2021 10:16:00 PM T [facility] Name Value Range Interpretation Code Description Data Stephanie rce(s) Supporting Document(s) Salicylate 2.8-20.0 Below low normal [facility] ID Date Data Source [id number] 04/23/2021 10:16:00 PM [facility] Value Range Interpretation Code Description Data Stephanie rce(s) Supporting Document(s) Acetaminophen 10.0-30.0 Below low normal [facility] ID Date Data Source [id number] 04/23/2021 10:13:00 PM [facility] Value Range Interpretation Code Description Data Stephanie rce(s) Supporting Document(s) Ethanol Less than 10.0 Normal (applies to non-numeric r esults) [facility] ID Date Data Source [id number] 04/23/2021 09:42:00 PM [facility] Value Range Interpretation Code Description Data Stephanie rce(s) Supporting Document(s) White Blood Count 3.5-10.5 Normal (applies to non-numeri c results) [facility] Red Blood Count 3.90-5.00 Normal (applies to non-numeric results) [facility] Hemoglobin 12.0-15.5 Normal (applies to non-numeric resul ts) [facility] Hematocrit 34.9-44.5 Normal (applies to non-numeric resul ts) [facility] Mean Corpuscular Volume 81.2-95.1 Normal (applies to non- numeric results) [facility] Mean Corpuscular Hgb 25.6-32.2 Normal (applies to non-num deena results) [facility] Mean Corpuscular Hgb Conc 32.0-36.0 Normal (applies to no n-numeric results) [facility] Red Cell Distribution Width 11.9-15.5 Normal (appli es to non-numeric results) [facility] Platelet Count 288 x10 3/uL 150-450 Normal (applies to non-numeric results) [facility] Mean Platelet Volume 9.4-12.4 Normal (applies to non-num deena results) [facility] Neutrophils% (Auto) 31.0-71.0 Normal (applies to non-nume frank results) [facility] Lymphocytes% (Auto) 20.0-55.0 Normal (applies to non-nume frank results) [facility] Monocytes% (Auto) 4.0-12.0 Normal (applies to non-numeri c results) [facility] Eosinophils% (Auto) 1.0-8.0 Normal (applies to non-nume frank results) [facility] Basophils% (Auto) 0.0-2.0 Normal (applies to non-numeri c results) [facility] Immature Granulocytes% (Auto) 0.0-2.0 Normal (alexander lies to non-numeric results) [facility] Neutrophils# (Auto) 1.50-6.20 Normal (applies to non-nume frank results) [facility] Lymphocytes# (Auto) 1.20-4.00 Normal (applies to non-nume frank results) [facility] Monocytes# (Auto) 0.00-0.90 Normal (applies to non-numeri c results) [facility] Eosinophils# (Auto) 0.00-0.50 Normal (applies to non-nume frank results) [facility] Basophils# (Auto) 0.00-0.20 Normal (applies to non-numeri c results) [facility] Immature Granulocytes# (Auto) 0.00-7.00 No rmal (applies to non-numeric results) [facility] ID Date Data Source [id number] 04/23/2021 09:58:00 PM EDT [facility] Name Value Range Interpretation Code Description Data Stephanie rce(s) Supporting Document(s) UDS Benzodiazepines Screen Negative Normal (applies to n on-numeric results) [facility] UDS Cocaine Screen Negative Normal (applies to non-numer ic results) [facility] UDS Ampetamine Screen Negative Normal (applies to non-nu meric results) [facility] UDS Cannabinoids Screen Negative Normal (applies to non- numeric results) [facility] UDS Opiates Screen Negative Normal (applies to non-numer ic results) [facility] UDS Barbiturates Screen Negative Normal (applies to non- numeric results) [facility] Threshold Levels Benzodiazepine 200 ng/mL Cocaine 300 ng/mL Amphetamines 1000 ng/mL Cannabinoids (THC) 50 ng/mL Opiates 300 ng/mL Barbiturates 200 ng/mL All positive findings are presumptive and unconfirmed. Confirmation of positive results are performed only at request of provider. Unconfirmed results must not be used for non-medical purposes (i.e. preemployment and legal purposes) ID Date Data Source [id number] 04/23/2021 09:52:00 PM EDT [facility] Collected By: Nurse Initials: JT Time Collected: 2115 Collected By: Nurse Initials: JT Time Collected: 2115 Collected By: Nurse Initials: JT Time Collected: 2115 Name Value Range Interpretation Code Description Data Stephanie rce(s) Supporting Document(s) Color,Urine Colorl-Dk Y Normal (applies to non-numeric res ults) [facility] Clarity,Urine Clear Normal (applies to non-numeric re sults) [facility] Specific [place],Urine 1.005-1.030 Normal (applies to non- numeric results) [facility] pH,Urine 5.0-8.0 Normal (applies to non-numeric resul ts) [facility] Protein,Urine Negative [facility] Glucose,Urine Negative Normal (applies to non-numeric re sults) [facility] Ketones,Urine Negative Normal (applies to non-numeric re sults) [facility] Blood,Urine Negative [facility] Bilirubin,Urine Negative Normal (applies to non-numeric results) [facility] Urobilinogen,Urine 0.2-1.0 Normal (applies to non-numer ic results) [facility] Leukocyte Esterase,Urine Negative Normal (applies to non -numeric results) [facility] Nitrite,Urine Negative Normal (applies to non-numeric re sults) [facility] ID Date Data Source [id number] 04/23/2021 09:52:00 PM [facility] Collected By: Nurse Initials: JT Time Collected: 2115 Collected By: Nurse Initials: JT Time Collected: 2115 Collected By: Nurse Initials: JT Time Collected: 2115 Name Value Range Interpretation Code Description Data [facility] rce(s) Supporting Document(s) RBC,Urine None Seen [facility] WBC,Urine None Seen [facility] Casts,Urine None Seen Normal (applies to non-numeric resu lts) [facility] Squamous Cells,Urine None Seen [facility] Amorphous Sediment,Urine None Seen [facility] Bacteria,Urine None Seen [facility] ital ID Date Data Source [id number] 04/23/2021 09:52:00 PM [facility] Collected By: Nurse Initials: JT Time Collected: 2115 Collected By: Nurse Initials: JT Time Collected: 2115 Collected By: Nurse Initials: JT Time Collected: 2115 Name Value Range Interpretation Code Description Data Stephanie rce(s) Supporting Document(s) HCG,Ur Negative Normal (applies to non-numeric results) [facility] ID Date Data Source [id number] 04/21/2021 02:53:00 PM EDT [address] [address] CONSULTPATIENT NAME: YARELI HATCH MR#: [id number] PHYSICIAN:AUTHOR: Colleen SMITH,Bogdan DATE: RM#: ERPATIENT : 00See AddendumHistoryHistory of Presenting IllnessPatient is 20-year-old female, currently lives in [facility], single, pastpsych history of borderline personality disorder, bipolar disorderChief complaint: Suicidal ideationHistory of present illness: Patient was seen along with PA students. Accordingto information from PSA patient was presented last night. She was banging herhead and expressing suicidal ideation while she was at [facility] and that is when shewas brought [...] as reaching out to staff member at [facility] if she does not feel safe.ER physician seems to be frustrated with patient recurrent emergency room visitbut upon discussion with the patient patient denied having any such behaviorpertaining to her safety prior to coming to the hospital or any intent to harmherself prior to the hospital. She was also requesting to have her clotheschanged and going back to [facility] as she was under order of [...] not feel safe to return back to [facility].However patient declined and also recommended case management services toprovide her help to find a suitable place that patient likes.DATE SIGNED: 04/21/21 Electronically SignedTIME SIGNED: 1507 BOGDAN MACIAS MD Name Value Range Interpretation Code Description Data Stephanie rce(s) Supporting Document(s) ID Date Data Source [id number] 04/20/2021 11:19:00 PM [facility] Name Value Range Interpretation Code Description Data Stephanie rce(s) Supporting Document(s) SALICYLATE < 1.7 mg/dL 0.0-20.0 N [facility] ID Date Data Source [id number] 04/20/2021 11:19:00 PM [facility] Name Value Range Interpretation Code Description Data Stephanie rce(s) Supporting Document(s) ACETAMINOPHEN < 2.0 ug/mL 0-[facility] Data Source [id number] 04/20/2021 11:19:00 PM [facility]T [facility] Name Value Range Interpretation Code Description Data Stephanie rce(s) Supporting Document(s) ETOH NONE DETECTED [facility] NONE DETECTED ID Date Data Source [id number] 04/20/2021 11:19:00 PM EDT [facility] Name Value Range Interpretation Code Description Data Stephanie rce(s) Supporting Document(s) GLU 100 mg/dL 70-110 [facility] Patients taking Sulfasalazine may have f alsely depressedGlucose levels. Patients taking Sulfapyridine may havefalsely elevated Glucose levels. Patients should be drawnfor Glucose before the initial administration of eitherdrug. BUN 16 mg/dL 7-23 [facility] CRE 0.657 mg/dL 0.500-1.300 [facility] GFR > 60 mL/min [facility] CHLORIDE 111 mmol/L 99-110 [facility] NA 142 mmol/L 136-147 [facility] POTASSIUM 3.9 mmol/L 3.5-5.1 [facility] TCO2 24 mmol/L 20-33 [facility] ANION GAP 10.9 10.0-20.0 [facility] CA 8.6 mg/dL 8.3-10.7 [facility] ALKALINE PHOS 118 U/L 45-117 [facility] TP 7.4 g/dL 6.0-7.8 [facility] ALB 3.4 g/dL 3.5-5.0 [facility] ESRD Dialysis patient Albumin reference range: 2.9-4.4 g/dL GL 4.0 g/dL 2.3-3.5 [facility] A/G 0.9 1.0-2.5 [facility] T. BILIRUBIN 0.3 mg/dL 0.1-1.1 [facility] Total Bilirubin is n ot recommended forpatients undergoing treatment with eltrombopag (Promacta)due to the potential for falsely elevated results. ALTI 46 U/L 6-54 [facility] [facility] Patients taking Sulfasalazine and/or Sul fapyridine may havefalsely depressed ALT levels. Patients should be drawn forALT before the initial administration of either drug. AST 33 U/L 6-38 [facility] Patients taking Sulfasalazine and/or Sul fapyridine may havefalsely depressed AST levels. Patients should be drawn forAST before the initial administration of either drug. ID Date Data Source [id number] 04/20/2021 11:01:00 PM EDT [facility] Name Value Range Interpretation Code Description Data Stephanie rce(s) Supporting Document(s) WBC 7.79 x10E3/uL 4.0-10.5 [facility] RBC 3.99 x10E6/uL 4.20-5.40 [facility] Hemoglobin 11.7 g/dL 12.0-16.0 [facility] Hematocrit 35.3 % 37.0-47.0 [facility] MCV 88.5 fL 81.0-99.0 [facility] MCH 29.3 pg 27.0-31.0 [facility] MCHC 33.1 g/dL 32.7-35.6 [facility] RDW 12.2 % 11.5-14.0 [facility] Platelet count 264 x10E3/uL 150-450 [facility] ital MPV 9.5 fl 6.9-9.5 [facility] Neutrophils 65.2 % 34-64 [facility] Lymphocytes 27.2 % 25-45 [facility] Monocytes 6.0 % 1.7-10.6 [facility] Eosinophils 1.0 % 0.4-7.0 [facility] Basophils 0.3 % 0.1-2.0 [facility] Imm. Gran. 0.3 % 0.1-2.0 [facility] Abs. Neutro. 5.08 x10E3/uL 1.2-7.6 [facility] Abs. Lymph. 2.12 x10E3/uL 1.0-3.5 [facility] Abs. Will. 0.47 x10E3/uL 0.1-1.0 [facility] Abs. Eosin. 0.08 x10E3/uL 0.1-0.7 [facility] Abs. Baso. 0.02 x10E3/uL 0.0-0.1 [facility] Abs. Imm. Gran. 0.02 x10E3/uL 0.0-0.1 [facility]ital ANRBC% 0 % 0 [facility] ID Date Data Source [id number] 04/20/2021 10:40:00 PM EDT [facility] Name Value Range Interpretation Code Description Data Stephanie rce(s) Supporting Document(s) LCOVID-19, [facility] This lab was ordered by [facility] and reported by [facility]. ID Date Data Source [id number] 04/20/2021 11:16:00 PM EDT [facility] Name Value Range Interpretation Code Description Data Stephanie rce(s) Supporting Document(s) COVID-19, CORDELL NEGATIVE NEGATIVE [facility] Methodology: Isothermal Nucleic Acid Amp lification [...] Emergency Use Authorization. ID Date Data Source [id number] 04/21/2021 03:43:00 PM EDT [facility] Physician DocumentationClLeticia Hinkle edical CenterName: Yareli DuvallAge: 20 yrsSex: FemaleDOB: 2000MRN: [id number] Date: 04/20/2021Time: 22:29Account#: [id number] MD: NONE, - Per PatientED Physician Ab Pires Summary:04/21/21 15:00Discharge OrderedLocation: Home Self CareafProblem: an ongoing problemafSymptoms: are unchangedafCondition: StableafDiagnosis- Adjustment disorder, unspecifiedafFollowup:af- With: Private Physician- When: 1 week- Reason: Recheck today's complaintsDischarge Instructions:- ADJUSTMENT DISORDERaf- Discharge Summary Eenxdyv7Tysvz:- Medication Reconciliationaf- Medication Reconciliation Form - 2nd CopyafHPI:04/1104:45 This 20 yrs old White Female presents to ER via Police with complaints ofPsych Problem.na104:45 The patient presents to the emergency department with depression, PT.BROUGHT TO ED BY dt9NKMO FOR MHE. APPARENTLY SHE WAS HITTING HER [...] 400 mg intramuscular suspension,extended release syringe 400 nqyptmb26 days3. ibuprofen 400 mg Oral tablet 1 [...] Negative for drug dependence, alcohol dependence, auditoryhallucinations, eh5qmgmcj hallucinations, homicidal ideation. All other systems are negative.Exam:04:49 Head/Face: Normocephalic, atraumatic. Eyes: Pupils equal round andreactive to light, zf7quydj-sflgcv motions intact. Lids and lashes normal. Conjunctiva [...] 97.7(T); Pulse Ox 95% on R/A; Pain0/10; jl15:40dj8202:32 Body Mass Index 37.12 (104.33 kg, 167.64 cm)ef1101115:40 Pain Scale: Exmoejt13:43 umehvjdlcf3KDY:03:21 Patient medically screened.na104:50 Data reviewed: vital signs, nurses notes, lab test result(s).na:31 Order name: Acetaminophen Level; Complete Time: 03:2:31 Order name: CBC with diff; Complete Time: 03:2:32 Order name: CMP; Complete Time: 03:2:32 Order name: COVID-19 PROFILE+LAB; Complete Time: 03:2:32 Order name: ETOH; Complete Time: 03:2:32 Order name: Llertyhob540/1022:32 Order name: Salicylate Level; Complete Time: 03:2:32 Order name: Triage - Drug Clyzwmxd731/1022:32 Order name: ONii363/1022:32 Order name: Urine HCG Qualitat zotqm024/1022:32 Order name: Diet - Mental Health Tray (call dietary); Complete Time:22:43 ef2:32 Order name: Belongings List; Complete Time: 15:53xt6732:32 Order name: Document Weight and Height for BMI; Complete Time: 15:2:32 Order name: Mental Health Evaluation; Complete Time: 15:3:24 Order name: Medically Cleared for Eval by- Psychosocial, Prep Manager (.PSA)vb7Slqxvloxw Medications:15:42 Not Given (Patient Refused): ARIPiprazole 10 mg PO :42 Not Given (Patient Refused): Loratadine 10 mg PO :42 Not Given (Patient Refused): Singulair Chewable Tablet 10 mg PO nogfty640:42 Not Given (Patient Refused): Propranolol 10 mg PO czvkuk453:42 Not Given (Patient Refused): sertraline 50 mg PO :42 Not Given (Physician Discretion): Topiramate 75 mg PO xwfcym6Omlkofkbta:Dispatcher [employer] Anshul Loving MD MD afAl-Hussein, Nabeel, MD MD na1Hilborne, Erica RN RN ef1 Name Value Range Interpretation Code Description Data Stephanie rce(s) Supporting Document(s) ID Date Data Source [id number] 04/21/2021 03:43:00 PM EDT [facility] Nurse[facility]ClC[facility] terName: Yareli DuvallAge: 20 yrsSex: FemaleDOB: 2000MRN: [id number] Date: 04/20/2021Time: 22:29Account#: [id number] MD: NONE, - Per PatientDiagnosis: Adjustment disorder, unspecifiedPresentation:04/1022:30 Presenting complaint: Patient states: the braze operator got me because i wasbanging my head and oi4kdidoxcklp to tie something around my neck. International Travel Fever No.CoronavirusScreening: Have you received the COVID vaccine? Yes. Communicable DiseaseScreen:Negative for fever>/= 100 degrees Fahrenheit. Communicable disease screen isnegative.(-) rash or unusual skin lesion (-) travel/contact with traveler (-)respiratorysymptoms. Communication Speaks Lebanese? Yes, is preferred language.22:30 Acuity: Triage 2al795:30 Acuity Assignment: Triage 0px573:30 Method Of Arrival: Kriaiovi1Uxsala Assessment:22:31 General: Appears in no apparent distress, [...] 400 mg intramuscular suspension,extended release syringe 400 lpyxcqq16 days3. ibuprofen 400 mg Oral tablet 1 [...] threats or abuse. Denies injuries from another.Nutritional cq1cbzsqpkjj: No deficits noted. Offer of HIV testing: patient was previouslyofferedscreening. Fall Risk None identified.Assessment:22:35 General: Appears in no apparent distress, obese, unkempt, Behavior isagitated. Neuro: su6Drbtq of Consciousness is awake, alert, obeys commands. [...] is generated by a policeagency: Police. The nk7ithrgsz was referred for evaluation because Pt states "the braze operator got me becauseI wasbanging my head and [...] to tie something around her neck at [facility]. Pt states she would like to be discharged home as she is not suicidalandhomicidal. Pt has [facility] at [facility]. Pt denies legal issues. Pt denies access toguns. PSAspoke with Nikky at [facility]. Nikky states the pt was banging her head in her roomand inthe hallway there at her residence. Nikky states the pt was verbally abusivetowardsstaff. Nikky states there needs to be a better plan for the pt as there seemsto be apattern of her going to the ED since she has been at [facility] since February 13 2021.Delusions are denied, Hallucinations are denied. Patient's mood is euthymic.14:22 Patient reports history of anxiety, Bipolar Disorder, Depression, Other:Borderline dc4Uooiapkieaa Disorder. Mental Health Admissions: [facility], last 03/2021 CurrentOutpatientMental Health Services: Therapist / Agency: [facility] Kail[facility]. Living Environment: Family / Home Support: Fair The patient currentlylives kaley [facility] residence. The patient is single. Detox / Rehab Admissions: None. CurrentOutptAlcohol or Substance Abuse Services: None.14:24 Patient presents to Emergency Department with the following symptomswithin the past 2 la9kjjll: self-mutilation, suicidal statements/threats. Objective: Patient iscooperative,Speech is normal. Affect is appropriate. Patient has mutilated themselves bycuttingright arm and left arm Cuts on arms from wire in face mask at [facility] facility [facility]. Mental status exam: Patients [...] by phone with Dr Macias. DSM-V DX [place] I diagnosis:Adjustment D/OUnspecified Fairpoint II diagnosis: Deferred Fairpoint III diagnosis: None. [place] IVdiagnosis:poor coping skills. Rankin Suicide Severity Rating Scale: Suicidal IdeationRating 0;Intensity of Ideations Rating 0; Suicidal Behavior Rating 0.14:35 Narrative Pt will be discharged back to [facility] per Dr. Macias with a diagnosisof Adjustment ue1Xedsnvzs. Pt can contract for safety. Pt denies SI/HI. Pt will follow up withtheiroutpatient provider, the [facility] and upcomingappointmentswill be verified and expedited. Pt has been provided with the PSA and Reachoutphonenumbers. Pt has been instructed to take medications as prescribed and [facility] should problems continue or worsen. Per Dr. Macias, pt will complete 5copingskills/5 goals[address]15:[address] Macias spoke with ED Dr. Strauss. Dr. Macias states the ptcapable of oc8wevfvb to the ED whenever she feels suicidal and that she needs to. Dr. Alvarezuggestsinvolving Case Management and having TLS make requests for other housingservices ifthe pt wishes not to live at [facility]. Dr. Macias states if the pt is [...] 97.7(T); Pulse Ox 95% on R/A; Pain0/10; jl15:83zr565:32 Body Mass Index 37.12 (104.33 kg, 167.64 cm)ef110/1115:40 Pain Scale: Hqynhip13:43 wbwmnodxrn5WY Course:04/1022:29 Patient arrived in ED.ef122:29 NONE, - Per Patient is Private Physician.ef122:30 Triage completed.ef122:35 Patient has correct armband on for positive identification. Bed in lowposition. Sitter ef1at bedside. Verbal reassurance given. Pillow given.22:35 Labs drawn. Collected by lab. Nasal Swab.ef110/1103:21 Ramón Levy MD is Attending Physician.na106:52 Resting quietly.fw10:17 Appears to be sleeping.ef115:43 No Physician assisted procedures completed.qk9Qyovjgnsxwhi Medications:15:42 Not Given (Patient Refused): ARIPiprazole 10 mg PO dvwpay208:42 Not Given (Patient Refused): Loratadine 10 mg PO akqsuv406:42 Not Given (Patient Refused): Singulair Chewable Tablet 10 mg PO tiyztp141:42 Not Given (Patient Refused): Propranolol 10 mg PO hrzewn611:42 Not Given (Patient Refused): sertraline 50 mg PO edqhiv824:42 Not Given (Physician Discretion): Topiramate 75 mg PO qeirjj4Bobmjol:15:00 Discharge ordered by .af15:43 Disposition: Discharged to home ambulatory.ef115:43 Condition: stable, Provider notified of abnormal vital signs.15:43 Discharge instructions given to patient, Instructed on dischargeinstructions, followup and referral plans. Demonstrated understanding of instructions.15:43 Discharge Assessment: Patient verbalized understanding of dispositioninstructions.Patient able15:43 Patient left the ED.e z6Nenwxmuert:Anshul Strauss MD MD afAl-Hussein, Nabeel, MD MD na1Hilborne, Erica, RN RN ef1LaSiege, Jolene, RN RN jlWest, Fayeanne, RN RN fwArPearl ross mb1Fqtsrcdvkan: (The following items were deleted from the chart)00:50 00:40 Reassessment: fwfw14:22 13:54 Referral Information: Evaluation referral is generated by nz3uk171:41 14:35 Narrative Pt will be discharged back to [facility] per Dr. Macias. Pt cancontract for nn2qywrqm. Pt denies SI/HI. [facility] and upcoming appointments will be [...] housing. Pt denies being verbally abusivetowardsstaff at [facility]. Pt denies threatening to tie something around her neck at [facility]. Pt states she would like to be discharged home as she is not suicidalandhomicidal. [facility]. Pt denies legal issues. Pt denies access toguns..Delusions are denied, Hallucinations are denied. Patient's mood is euthymic.em2 Name Value Range Interpretation Code Description Data Stephanie rce(s) Supporting Document(s) ID Date Data Source [id number] 04/19/2021 03:01:00 AM EDT [facility] Name Value Range Interpretation Code Description Data Stephanie rce(s) Supporting Document(s) SALICYLATE < 1.7 mg/dL 0.0-20.0 [facility] ID Date Data Source [id number] 04/19/2021 03:01:00 AM EDT [facility] Name Value Range Interpretation Code Description Data Stephanie rce(s) Supporting Document(s) ACETAMINOPHEN < 2.0 ug/mL 0-30 [facility] ID Date Data Source [id number] 04/19/2021 03:01:00 AM EDT [facility] Name Value Range Interpretation Code Description Data Stephanie rce(s) Supporting Document(s) ETOH NONE DETECTED [facility] NONE DETECTED ID Date Data Source [id number] 04/19/2021 03:01:00 AM EDT [facility] Name Value Range Interpretation Code Description Data Stephanie rce(s) Supporting Document(s) GLU 86 mg/dL 70-110 [facility] Patients taking Sulfasalazine may have f alsely depressedGlucose levels. Patients taking Sulfapyridine may havefalsely elevated Glucose levels. Patients should be drawnfor Glucose before the initial administration of eitherdrug. BUN 13 mg/dL 7-23 [facility] CRE 0.615 mg/dL 0.500-1.300 [facility] GFR > 60 mL/min [facility] CHLORIDE 113 mmol/L 99-110 [facility] NA 142 mmol/L 136-147 [facility] POTASSIUM 3.9 mmol/L 3.5-5.1 [facility] TCO2 24 mmol/L 20-33 [facility] ANION GAP 8.9 10.0-20.0 [facility] CA 8.6 mg/dL 8.3-10.7 [facility] ALKALINE PHOS 112 U/L 45-117 [facility] TP 7.3 g/dL 6.0-7.8 [facility] ALB 3.3 g/dL 3.5-5.0 [facility] ESRD Dialysis patient Albumin reference range: 2.9-4.4 g/dL GL 4.0 g/dL 2.3-3.5 [facility] A/G 0.8 1.0-2.5 [facility] T. BILIRUBIN 0.2 mg/dL 0.1-1.1 [facility] [employer] [place] Total Bilirubin is n ot recommended forpatients undergoing treatment with eltrombopag (Promacta)due to the potential for falsely elevated results. ALTI 41 U/L 6-54 [facility] Patients taking Sulfasalazine and/or Sul fapyridine may havefalsely depressed ALT levels. Patients should be drawn forALT before the initial administration of either drug. AST 26 U/L 6-38 [facility] Patients taking Sulfasalazine and/or Sul fapyridine may havefalsely depressed AST levels. Patients should be drawn forAST before the initial administration of either drug. ID Date Data Source [id number] 04/19/2021 02:32:00 AM EDT [facility] Name Value Range Interpretation Code Description Data Stephanie rce(s) Supporting Document(s) WBC 7.86 x10E3/uL 4.0-10.5 [facility] RBC 3.92 x10E6/uL 4.20-5.40 [facility] Hemoglobin 11.6 g/dL 12.0-16.0 [facility] Hematocrit 35.0 % 37.0-47.0 [facility] MCV 89.3 fL 81.0-99.0 [facility] MCH 29.6 pg 27.0-31.0 [facility] MCHC 33.1 g/dL 32.7-35.6 [facility] RDW 12.1 % 11.5-14.0 [facility] Platelet count 276 x10E3/uL 150-450 [facility] ital MPV 9.4 fl 6.9-9.5 [facility] Neutrophils 60.4 % 34-64 [facility] Lymphocytes 30.8 % 25-45 [facility] Monocytes 6.9 % 1.7-10.6 [facility] Eosinophils 1.1 % 0.4-7.0 [facility] Basophils 0.3 % 0.1-2.0 [facility] Imm. Gran. 0.5 % 0.1-2.0 [facility] Abs. Neutro. 4.75 x10E3/uL 1.2-7.6 [facility] Abs. Lymph. 2.42 x10E3/uL 1.0-3.5 [facility] Abs. Will. 0.54 x10E3/uL 0.1-1.0 [facility] Abs. Eosin. 0.09 x10E3/uL 0.1-0.7 [facility] Abs. Baso. 0.02 x10E3/uL 0.0-0.1 [facility] Imm. Gran. 0.04 x10E3/uL 0.0-0.1 [facility] spital ANRBC% 0 % 0 [facility] ID Date Data Source [id number] 04/19/2021 02:36:00 AM EDT [facility] Name Value Range Interpretation Code Description Data Setphanie rce(s) Supporting Document(s) PCP VISTA NEG NEGATIVE [facility] MINIMUM LEVEL OF DETECTION IS 25 ng/ml BENZODIAZEPINES [facility]G [facility]GATIVE [facility] LEVEL OF DETECTION IS 200 ng/ml COCAINE VISTA NEG NEGATIVE [facility] MINIMUM LEVEL OF DETECTION IS 300 ng/ml AMPHETAMINES NEG NEGATIVE [facility] MINIMUM LEVEL OF DETECTION IS 1000 ng/ml BARBITURATES [facility]G [facility]GAT[facility] CUTOFF CONCENTRATION IS 200 ng/ml CANNABINOIDS NEG NEGATIVE [facility] CUTOFF CONCENTRATION IS 50 ng/ml METHADONE VISTA NEG NEGATIVE [facility] MINIMUM LEVEL OF DETECTION IS 300 ng/ml OPIATE VISTA NEG NEGATIVE [facility] MINIMUM DETECTION LEVEL IS 300 ng/ml ID Date Data Source [id number] 04/19/2021 02:16:00 AM EDT [facility] Name Value Range Interpretation Code Description Data Stephanie rce(s) Supporting Document(s) HCG QUAL URINE Negative Negative [facility] l ID Date Data Source [id number] 04/19/2021 02:16:00 AM EDT [facility] Name Value Range Interpretation Code Description Data Stephanie rce(s) Supporting Document(s) URINE COLOR Yellow [facility] UAPR Cloudy [facility] UGLU Negative NEGATIVE [facility] URINE BILIRUBIN [facility] UKET Negative NEGATIVE [facility] USG 1.029 1.010-1.025 [facility] UBLO Negative NEGATIVE [facility] UpH 5.5 5.0-8.0 [facility] UPRO Negative Negative [facility] UUB 1.0 mg/dL 0.2-1.0 [facility] UNIT Negative Negative [facility] ULEU Negative Negative [facility] ID Date Data Source [id number] 04/19/2021 01:30:00 AM EDT [facility] Name Value Range Interpretation Code Description Data Stephaine rce(s) Supporting Document(s) LCOVID-19, CORDELL NEGATIVE [facility] This lab was ordered by [facility] and reported by [facility]. ID Date Data Source [id number] 04/19/2021 02:30:00 AM EDT [facility] Name Value Range Interpretation Code Description Data Stephanie rce(s) Supporting Document(s) COVID-19, CORDELL NEGATIVE NEGATIVE [facility] Methodology: Isothermal Nucleic Acid Amp lification [...] Emergency Use Authorization. ID Date Data Source [id number] 04/19/2021 02:55:00 PM EDT [facility] Physician DocumentationClaxlexy-Naveen Hinkle edical CenterName: Yareli DuvallAge: 20 yrsSex: FemaleDOB: 2000MRN: [id number] Date: 04/19/2021Time: 01:17Account#: [id number] MD: NONE, - Per PatientED Physician Rebekah Groverposition Summary:04/19/21 14:31Discharge OrderedLocation: Home Self CareafProblem: an ongoing problemafSymptoms: are unchangedafCondition: StableafDiagnosis- Bipolar disorder, unspecifiedafFollowup:af- With: Private Physician- When: 1 week- Reason: Recheck today's complaintsDischarge Instructions:- BIPOLAR DISORDERaf- Discharge Summary Wdgqnih88Yeizt:- Medication Reconciliationaf- Medication Reconciliation Form - 2nd CopyafHPI:04/907:14 This 20 yrs old White Female presents to ER via Police with complaints ofPsych Problem.br07:14 Obese 20-year-old female brought by PD for evaluation of self- harm.Please call to seen brpatient where she was seen slamming her head against the wall after attemptingto cutwrists w wire from covid mask. self endorses having been [facility] from [facility].Historical:- Allergies: Haldol; Risperdal;- Home Meds:1. aripiprazole 10 [...] Temp 98.3; Pulse Ox 98% on R/A; Tlgeuj058.33 kg; bi4Pimjfp 5 ft. 6 in. ; Pain 0/10;14:44 BP 119 / 88; Pulse 88; Resp 16; Temp 98; Pulse Ox 98% ;kk201:24 Body Mass Index 37.12 (104.33 kg, 167.64 cm)kk301:24 Pain Scale: Avwxypv9KZA:01:33 Patient medically screened.br07:17 Data reviewed: vital signs, [...] name: ETOH; Complete Time: 03::37 Order name: Gqkdxrizg288/0901:37 Order name: Salicylate Level; Complete Time: 03::37 Order name: Triage - Drug Screen; Complete Time: 03::37 Order name: UA; Complete Time: 03::37 Order name: Urine HCG Qualitative; Complete Time: 03::37 Order name: Diet - Mental Health Tray (call dietary):37 Order name: Belongings Shmtyt323:37 Order name: Document Weight and Height for BGJzc636:37 Order name: Mental Health Fgwegzgnesed151/0901:37 Order name: Mental Health Level 7bm193:37 Order name: VS q ijvjtve739/0903:17 Order name: Consult Orders-Psychosocial, Prep Manager (.PSA)brDispensed Medications:03:37 Drug: B52 IM - (LORazepam 2 mg, diphenhydrAMINE 50 mg, HaloperidolLactate 5 mg) Route: cm4IM; Site: left vastus lateralis;Signatures:Dispatcher [employer] Anshul Loving MD MD afRoberts, Brandon, MD MD brKelly, Ratna, RN RN xm2GldaqpjbiWendy quintana RN RN cm4 Name Value Range Interpretation Code Description Data Stephanie rce(s) Supporting Document(s) ID Date Data Source [id number] 04/19/2021 02:55:00 PM EDT [facility] Nurse's NotesClaxSt. Lawrence Health [facility] Medical Tootie terName: Yareli DuvallAge: 20 yrsSex: FemaleDOB: 2000MRN: [id number] Date: 04/19/2021Time: 01:17Account#: [id number] MD: NONE, - Per PatientDiagnosis: Bipolar disorder, unspecifiedPresentation:04/901:18 Presenting complaint: Patient states: "Well, the braze operator came because I wasbanging my ra1nudg on the wall and I wasn't being suicidal.". Coronavirus Screening: Have youbeendiagnosed with COVID-19 in the past 30 days? no Are you currently on quarantinebyPublic Health? no Flu-like symptoms reported in the last 14 days: no. Have youhadclose contact with confirmed or suspected COVID-19 case? no Do you live in asettingwhere a large of amount of people live, such as fdc, family care,half-way, etc?yes. Have you traveled to a location with widespread or ongoing COVID-19communityspread or outside of [facility]? no Have you traveled internationally or hadcontact withsomeone that has traveled and has been ill in the past 3 weeks? no Have youreceivedthe COVID vaccine? Yes Sophia unknown. Communication Speaks Lebanese? Yes, ispreferredlanguage. Language Line Services needed? No Are TDD needed? No. Best learningmethod:discussion. Learning barriers: none identified.01:18 Acuity: Triage 7or928:18 Method Of Arrival: Lxqmgaic976:19 Acuity Assignment: Triage 1vt449:21 International Travel Fever No. Communicable Disease Screen: Negative forfever>/= 100 sw6qgmmqxb Fahrenheit. Communicable disease screen is negative. (-) rash orunusual skinlesion (-) travel/contact with traveler (-) respiratory symptoms.Triage Assessment:01:24 General: Appears unkempt, well nourished, Behavior is appropriate forage, cooperative, mp1Jbauvi fever, chills. Sepsis Screening: (1)Signs/symptoms infection Sepsis isnotsuspected. Pain: Denies pain. PSS-3 Now I'm going to ask you some questionsthat we askeveryone treated here, no matter what problem they are here for. [facility] and it helps us [...] threats or abuse. Denies injuries from another.Nutritional qc4qfikjznra: No deficits noted. Offer of HIV testing: patient was previouslyofferedscreening. Fall Risk None identified.Assessment:01:35 Reassessment: No changes from previously documented assessment.kk301:54 Reassessment: Patient refused to have labs drawn, explained mental healthprocess and kk3the steps necessary to be medically cleared, patient still refused, PSA and EDprovidermade aware.02:22 Reassessment: patient starts refusing blood work and screaming at staff.OPD called to vg9gkqvwnz, patient is known to be aggressive. Patient gets aggitated when thepolice gethere and continues to scream at staff, code carmen called. Patient agrees toget bloodwork done. .03:38 Reassessment: patient tries to elope twice, walking out to the ramp.Patient was gv6mqisdmggmy and followed out to the ramp, patient did come back inside bothtimes.Patient begins hitting her head off the wall and not cooperating with staff andyelling/ calling staff vulgar names. Patient has no self control at this timescreamingin the ER. Code orange called..03:52 Reassessment: Patient placed in 4 point restraints at 0342 due tocontinued lack of nm0jxwn control.04:33 Reassessment: patient released from restraints at 0433.cm404:46 Reassessment: Patient appears in no apparent distress at this time.cm407:30 Reassessment: Patient appears in no apparent distress at this time. Nochanges from te1pmpmymbmre documented assessment. Patient sleeping.09:57 Reassessment: Patient appears in no apparent distress at this time. Nochanges from dw7cbhietgilg documented assessment. Patient sleeping. .Psychosocial:07:26 SAFE Act [...] facilities last being three days ago at [facility]. Ptreportsthat she has been and eating and sleeping well. Pt [facility] Pt states that she does not feelshe needsinpatient services at this time. Pt reports she feels she would be safe to bedischarged home at this time back to [facility]. Delusions are denied, Hallucinationsaredenied. Patient's mood is depressed.12:00 Patient reports history of anxiety, Bipolar Disorder, Depression, self-mutilation, gy11Ngengk Health Admissions: multiple last yash ng at [facility] two days ago CurrentOutpatient Mental Health Services: [facility].LivingEnvironment: Family / Home Support: good The patient [facility].12:04 Patient presents to Emergency Department with the following symptomswithin the past 2 cd01fqdgw: Anger, anxiety, depressed mood, poor concentration, poor impulsecontrol,suicidal ideation with no plan.12:06 Objective: Patient is cooperative, Speech is normal. Affect isappropriate. Mental bh32caqmbi exam: Patients appearance is appropriate, Patient's behavior [...] patient's status at 13:33, ED MDnotified of ch74olmjjwxb status at 13:33. Disposition: Medically cleared for disposition by [facility].Psychiatric Consult is performed by phone with Dr Strauss The patient has asafedestination which is Pt will be discharged to [facility] per Dr. Canela. Pt cancontract forsafety and denies SI/HI. Pt will follow up with outpatient next week. Pt willtakemedications as prescribed. Pt provided contact information for JIMY Mazariegos. Ptwill come to the ED if problems continue or worsen. DSM-V DX [place] I diagnosis:BipolarD/O, Unspecified [place] II diagnosis: Deferred [place]point III diagnosis: None. [place] IVdiagnosis: poor impulse control. The patient is not a service shop foreman ormilitarydependent. [place]in Suicide Severity Rating Scale: Suicidal Ideation Rating 0;Intensity of Ideations Rating 0; Suici reji Behavior Rating 0.Psych:01:28 Subjective: Patient's mood is euphoric, Delusions are denied,Hallucinations are denied eq0Vcjfwe thoughts of suicide. Denies suicidal plan. Objective: Patient iscooperative,Speech is normal, Affect is appropriate, Patient has mutilated themselves byscratchingself using a metal wire on right and left forearm. Interventions: Removedpersonalitems and placed in bag. Patient placed in hospital gown. Searched person fordangerousitems. Urine collected and sent for urine drug test. Belonging list filled out.Observation Level Level 3 Sitter needed. Provider notified. [facility]eeshan Grover [facility] notified. Wendy Luis Level 3 order placed.Vital Signs:01:24 BP 132 / 107; Pulse 91; Resp 20; Temp 98.3; Pulse Ox 98% on R/A; Tjkdcl731.33 kg; dy1Qgakkz 5 ft. 6 in. ; Pain 0/10;14:44 BP 119 / 88; Pulse 88; Resp 16; Temp 98; Pulse Ox 98% ;kk201:24 Body Mass Index 37.12 (104.33 kg, 167.64 cm)kk301:24 Pain Scale: Duduuhl5IZ Course:01:17 Patient arrived in ED.kk301:18 NONE, - Per Patient is Private Physician.kk301:19 Triage completed.kk301:30 Ratna Barbosa RN is Primary Nurse.kk301:33 Zeeshan Grover MD is Attending Physician.br01:35 Urine collected. Clean catch specimen. Nasal Swab Collected by Nurse.kk301:40 Patient has correct armband on for positive identification. Placed ingown. Bed in low in0njazfglj. Call light in reach. Side rails up [...] has no functional deficits.14:55 Patient left the ED.de3Ntjikzpkzj:Anshul Strauss MD MD afKnight, Kristin RN RN zw1HlbsIna Jack Brandon, MD MD brKelly, Krista, RN RN xk5Kjtxkkvz, Usha lp1Jmgpixrjj, Wendy, RN RN im8Moed, Olivia, RN RN sw2 Name Value Range Interpretation Code Description Data Stephanie rce(s) Supporting Document(s) ID Date Data Source [id number] 04/17/2021 10:05:00 AM EDT [facility] Name Value Range Interpretation Code Description Data Stephanie rce(s) Supporting Document(s) Respiratory specimen severe acute respir atory syndrome coronavirus 2 (SARS-CoV-2) RNA Negative (qualifier value) [facility] This lab was ordered by [facility] and reported by . ID Date Data Source [id number] 04/17/2021 10:35:00 AM EDT [facility] Name Value Range Interpretation Code Description Data Stephanie rce(s) Supporting Document(s) SARS-CoV-2 RNA Negative Normal (applies to non-numeric r esults) [facility] Negative results should be treated as [...] Certificate of Accreditation. Factsheets for healthcare providers: https://www.fda.gov/media/076345/download Factsheets for patients: https://www.fda.gov/media/577040/download The ID NOW Instrument is a rapid molecular in vitro diagnostic test utilizing an isothermal nucleic acid amplification technology intended for the qualitative detection of nucleic acid from the SARS-CoV-2 viral RNA. THIS IS A STATE REPORTABLE COMMUNICABLE DISEASE. Manual entry verified by Megan Murphy 04/17/21 1034 ID Date Data Source [id number] 04/17/2021 10:56:00 AM EDT [facility] Name Value Range Interpretation Code Description Data Stephanie rce(s) Supporting Document(s) HCG,Ur Negative Normal (applies to non-numeric results) [facility] ID Date Data Source [id number] 04/17/2021 02:47:00 AM EDT [facility] Name Value Range Interpretation Code Description Data Stephanie rce(s) Supporting Document(s) UDS Benzodiazepines Screen Negative Normal (applies to n on-numeric results) [facility] UDS Cocaine Screen Negative Normal (applies to non-numer ic results) [facility] UDS Ampetamine Screen Negative Normal (applies to non-nu meric results) [facility] UDS Cannabinoids Screen Negative Normal (applies to non- numeric results) [facility] UDS Opiates Screen Negative Normal (applies to non-numer ic results) [facility] UDS Barbiturates Screen Negative Normal (applies to non- numeric results) [facility] Threshold Levels Benzodiazepine 200 ng/mL Cocaine 300 ng/mL Amphetamines 1000 ng/mL Cannabinoids (THC) 50 ng/mL Opiates 300 ng/mL Barbiturates 200 ng/mL All positive findings are presumptive and unconfirmed. Confirmation of positive results are performed only at request of provider. Unconfirmed results must not be used for non-medical purposes (i.e. preemployment and legal purposes) ID Date Data Source [id number] 04/17/2021 02:46:00 AM [facility] Collected By: Nurse Initials: JT Time Collected: 214 Collected By: Nurse Initials: JT Time Collected: 214 Name Value Range Interpretation Code Description Data [facility] rce(s) Supporting Document(s) Color,Urine Colorl-Dk Y Normal (applies to non-numeric res ults) [facility] Clarity,Urine Clear Normal (applies to non-numeric re sults) [facility] Specific [place],Urine 1.005-1.030 [facility] pH,Urine 5.0-8.0 Normal (applies to non-numeric resul ts) [facility] Protein,Urine Negative Normal (applies to non-numeric re sults) [facility] Glucose,Urine Negative Normal (applies to non-numeric re sults) [facility] Ketones,Urine Negative Normal (applies to non-numeric re sults) [facility] Blood,Urine Negative [facility] Bil[facility],Urine Negative [facility] pital Urobilinogen,Urine 0.2-1.0 Normal (applies to non-numer ic results) [facility] Leukocyte Esterase,Urine Negative [facility] Nitrite,Urine Negative Normal (applies to non-numeric re sults) [facility] ID Date Data Source [id number] 04/17/2021 02:46:00 AM [facility] Collected By: Nurse Initials: JT Time Collected: 214 Collected By: Nurse Initials: JT Time Collected: 214 Name Value Range Interpretation Code Description Data [facility] Supporting Document(s) RBC,Urine None Seen [facility] WBC,Urine None Seen [facility] Casts,Urine None Seen Normal (applies to non-numeric resu lts) [facility] Squamous Cells,Urine None Seen [facility] Amorphous Sediment,Urine None Seen [facility] Bacteria,Urine None Seen [facility] ital ID Date Data Source [id number] 04/17/2021 02:29:00 AM EDT [facility] Name Value Range Interpretation Code Description Data Stephanie rce(s) Supporting Document(s) Sodium 139 mmol/L 136-145 Normal (applies to non-numeric resul ts) [facility] Potassium 3.5-5.1 Below low normal [facility] spital Chloride 102 mmol/L 98-107 Normal (applies to non-numeric resul ts) [facility] Carbon Dioxide CO2 21-32 Normal (applies to non-numer ic results) [facility] Anion Gap 5.0-16.0 Normal (applies to non-numeric resul ts) [facility] BUN 12 mg/dL 7-18 Normal (applies to non-numeric results) [facility] Creatinine,Serum 0.7-1.2 Normal (applies to non-numeric results) [facility] GFR >60 Normal (applies to non-numeric results) [facility] Glucose Level 99 mg/dL 60-99 Normal (applies to non-numeric re sults) [facility] Reference range is only applicable when patient is fasting Note the following drug interference: Sulfasalazine Sulfapyridine Can see falsely depressed Can see falsely elevated result with up to 17% results with up to 11% decrease in measurement increase in measurement Recommend patients be collected for this test prior to administration of either drug. Calcium 8.5-10.1 Normal (applies to non-numeric resul ts) [facility] Bilirubin,Total 0.1-1.9 Normal (applies to non-numeric results) [facility] SGOT(AST) 26 U/L 15-37 Normal (applies to non-numeric resul ts) [facility] Note the following drug interference: Sulfasalazine Sulfapyridine Can see falsely depressed Can see falsely elevated result with up to 10% results with up to 10% decrease in measurement increase in measurement Recommend patients be collected for this test prior to administration of either drug. SGPT(ALT) 45 U/L 12-78 Normal (applies to non-numeric resul ts) [facility] Note the following drug interference: Sulfasalazine Sulfapyridine Can see falsely depressed Can see falsely elevated result with up to 29% results with up to 10% decrease in measurement increase in measurement Recommend patients be collected for this test prior to administration of either drug. Alkaline Phosphatase 133 U/L 38-126 Above high normal [facility] can increase Alkaline Phosp le vels up to 2 times the normal adult value. Normal values for children and adolescents are 2 to 3 times the normal adult value. Total Protein 6.0-8.2 Normal (applies to non-numeric re sults) [facility] Albumin Level 3.4-5.0 Normal (applies to non-numeric re sults) [facility] ID Date Data Source [id number] 04/17/2021 02:29:00 AM EDT [facility] Name Value Range Interpretation Code Description Data Stephanie rce(s) Supporting Document(s) Salicylate 2.8-20.0 Below low normal [facility] ospital ID Date Data Source [id number] 04/17/2021 02:29:00 AM EDT [facility] Name Value Range Interpretation Code Description Data Stephanie rce(s) Supporting Document(s) Troponin I 0.000-0.056 Normal (applies to non-numeric resu lts) [facility] ID Date Data Source [id number] 04/17/2021 02:29:00 AM EDT [facility] Name Value Range Interpretation Code Description Data Stephanie rce(s) Supporting Document(s) Acetaminophen 10.0-30.0 Below low normal [facility] Hospital ID Date Data Source [id number] 04/17/2021 02:29:00 AM EDT [facility] Name Value Range Interpretation Code Description Data Stephanie rce(s) Supporting Document(s) Magnesium 1.8-2.4 Normal (applies to non-numeric resul ts) [facility] ID Date Data Source [id number] 04/17/2021 02:28:00 AM EDT [facility] Name Value Range Interpretation Code Description Data Stephanie rce(s) Supporting Document(s) Ethanol Less than 10.0 Normal (applies to non-numeric r esults) [facility] ID Date Data Source [id number] 04/17/2021 02:07:00 AM EDT [facility] Name Value Range Interpretation Code Description Data Stephanie rce(s) Supporting Document(s) White Blood Count 3.5-10.5 Normal (applies to non-numeri c results) [facility] Red Blood Count 3.90-5.00 Normal (applies to non-numeric results) [facility] Hemoglobin 12.0-15.5 Normal (applies to non-numeric resul ts) [facility] Hematocrit 34.9-44.5 Normal (applies to non-numeric resul ts) [facility] Mean Corpuscular Volume 81.2-95.1 Normal (applies to non- numeric results) [facility] Mean Corpuscular Hgb 25.6-32.2 Normal (applies to non-num deena results) [facility] Mean Corpuscular Hgb Conc 32.0-36.0 Normal (applies to no n-numeric results) [facility] Red Cell Distribution Width 11.9-15.5 Normal (appli es to non-numeric results) [facility] Platelet Count 285 x10 3/uL 150-450 Normal (applies to non-numeric results) [facility] Mean Platelet Volume 9.4-12.4 Normal (applies to non-num deena results) [facility] Neutrophils% (Auto) 31.0-71.0 Normal (applies to non-nume frank results) [facility] Lymphocytes% (Auto) 20.0-55.0 Normal (applies to non-nume frank results) [facility] Monocytes% (Auto) 4.0-12.0 Normal (applies to non-numeri c results) [facility] Eosinophils% (Auto) 1.0-8.0 Normal (applies to non-nume frank results) [facility] Basophils% (Auto) 0.0-2.0 Normal (applies to non-numeri c results) [facility] Immature Granulocytes% (Auto) 0.0-2.0 Normal (alexander lies to non-numeric results) [facility] Neutrophils# (Auto) 1.50-6.20 Above high normal [facility] Lymphocytes# (Auto) 1.20-4.00 Normal (applies to non-nume frank results) [facility] Monocytes# (Auto) 0.00-0.90 Normal (applies to non-numeri c results) [facility] Eosinophils# (Auto) 0.00-0.50 Normal (applies to non-nume frank results) [facility] Basophils# (Auto) 0.00-0.20 Normal (applies to non-numeri c results) [facility] Immature Granulocytes# (Auto) 0.00-7.00 No rmal (applies to non-numeric results) [facility] ID Date Data Source [id number] 04/14/2021 03:02:00 PM EDT [address] CONSULTPATIENT NAME: YARELI HATCH MR#: [id number] PHYSICIAN:AUTHOR: Surendra SMITH,P. DATE: #: ERPATIENT : 00HistoryAdditional NotesYareli is a 20-year-old single white female with the long history of mentalillness and multiple hospitalization [facility]. She was recently [...] her suicidal.So, then she was taken to [facility] in [place]. While she was in the [facility],she claims she escaped from the hospital at which point a pickup order wasissued then she was brought to [facility] yesterday. I saw her today int ER.In my evaluation today which I conducted with Gloria, potable water treatment operator and2 students from [facility] I found her to be not [...] Hospital(s) Supporting Document(s) ID Date Data Source [id number] 04/13/2021 10:06:00 PM EDT [facility] Name Value Range Interpretation Code Description Data [facility] Supporting Document(s) WBC 11.79 x10E3/uL 4.0-10.5 [facility] RBC 4.27 x10E6/uL 4.20-5.40 [facility] Hemoglobin 12.5 g/dL 12.0-16.0 [facility] Hematocrit 37.7 % 37.0-47.0 [facility] MCV 88.3 fL 81.0-99.0 [facility] MCH 29.3 pg 27.0-31.0 [facility] MCHC 33.2 g/dL 32.7-35.6 [facility] RDW 12.4 % 11.5-14.0 [facility] Platelet count 262 x10E3/uL 150-450 N [facility] ital MPV 10.3 fl 6.9-9.5 [facility] Neutrophils 75.6 % 34-64 [facility] Lymphocytes 17.2 % 25-45 [facility] Monocytes 5.9 % 1.7-10.6 [facility] Eosinophils 0.6 % 0.4-7.0 [facility] Basophils 0.3 % 0.1-2.0 [facility] Imm. Gran. 0.4 % 0.1-2.0 [facility] Abs. Neutro. 8.92 x10E3/uL 1.2-7.6 [facility] Abs. Lymph. 2.03 x10E3/uL 1.0-3.5 [facility] Abs. Will. 0.69 x10E3/uL 0.1-1.0 [facility] Abs. Eosin. 0.07 x10E3/uL 0.1-0.7 [facility] Abs. Baso. 0.03 x10E3/uL 0.0-0.1 [facility] l Abs. Imm. Gran. 0.05 x10E3/uL 0.0-0.1 [facility] spital ANRBC% 0 % 0 [facility] ID Date Data Source [id number] 04/13/2021 09:38:00 PM [facility] Name Value Range Interpretation Code Description Data Stephanie rce(s) Supporting Document(s) GLU 95 mg/dL 70-110 [facility] Patients taking Sulfasalazine may have f alsely depressedGlucose levels. Patients taking Sulfapyridine may havefalsely elevated Glucose levels. Patients should be drawnfor Glucose before the initial administration of eitherdrug. BUN 14 mg/dL 7-23 [facility] CRE 0.672 mg/dL 0.500-1.300 [facility] GFR > 60 mL/min [facility] CHLORIDE 110 mmol/L 99-110 [facility] NA 141 mmol/L 136-147 [facility] POTASSIUM 4.5 mmol/L 3.5-5.1 [facility] TCO2 23 mmol/L 20-33 [facility] ANION GAP 12.5 10.0-20.0 [facility] CA 8.6 mg/dL 8.3-10.7 [facility] ALKALINE PHOS 125 U/L 45-117 [facility] TP 8.0 g/dL 6.0-7.8 [facility] ALB 3.6 g/dL 3.5-5.0 [facility] ESRD Dialysis patient Albumin reference range: 2.9-4.4 g/dL GL 4.4 g/dL 2.3-3.5 [facility] A/G 0.8 1.0-2.5 [facility] T. BILIRUBIN 0.3 mg/dL 0.1-1.1 [facility] [place] Total Bilirubin is n ot recommended forpatients undergoing treatment with eltrombopag (Promacta)due to the potential for falsely elevated results. ALTI 51 U/L 6-54 [facility] Patients taking Sulfasalazine and/or Sul fapyridine may havefalsely depressed ALT levels. Patients should be drawn forALT before the initial administration of either drug. AST 32 U/L 6-38 [facility] Patients taking Sulfasalazine and/or Sul fapyridine may havefalsely depressed AST levels. Patients should be drawn forAST before the initial administration of either drug. ID Date Data Source [id number] 04/13/2021 09:38:00 PM EDT [facility] Name Value Range Interpretation Code Description Data Stephanie rce(s) Supporting Document(s) SALICYLATE < 1.7 mg/dL 0.0-20.0 [facility] ID Date Data Source [id number] 04/13/2021 09:38:00 PM EDT [facility] Name Value Range Interpretation Code Description Data Stephanie rce(s) Supporting Document(s) ACETAMINOPHEN < 2.0 ug/mL 0-30 [facility] Date Data Source [id number] 04/13/2021 09:38:00 PM EDT [facility] Name Value Range Interpretation Code Description Data Stephanie rce(s) Supporting Document(s) ETOH 0.007 g/dL NONE DETECTED [facility] ID Date Data Source [id number] 04/13/2021 08:47:00 PM EDT [facility] Name Value Range Interpretation Code Description Data Stephanie rce(s) Supporting Document(s) LCOVID-19, CORDELL NEGATIVE [facility] This lab was ordered by [facility] and reported by [facility]. ID Date Data Source [id number] 04/13/2021 09:21:00 PM EDT [facility] Name Value Range Interpretation Code Description Data Stephanie rce(s) Supporting Document(s) COVID-19, CORDELL NEGATIVE NEGATIVE [facility] Methodology: Isothermal Nucleic Acid Amp [...] Emergency Use Authorization. ID Date Data Source [id number] 04/13/2021 09:48:00 PM EDT [facility] Name Value Range Interpretation Code Description Data [facility] rce(s) Supporting Document(s) PCP VISTA NEG NEGATIVE [facility] MINIMUM LEVEL OF DETECTION IS 25 ng/ml BENZODIAZEPINES NEG NEGATIVE [facility] al MINIMUM LEVEL OF DETECTION IS 200 ng/ml COCAINE VISTA NEG NEGATIVE [facility] MINIMUM LEVEL OF DETECTION IS 300 ng/ml AMPHETAMINES NEG NEGATIVE [facility] al MINIMUM LEVEL OF DETECTION IS 1000 ng/ml BARBITURATES NEG NEGATIVE [facility] al CUTOFF CONCENTRATION IS 200 ng/ml CANNABINOIDS NEG NEGATIVE [facility] al CUTOFF CONCENTRATION IS 50 ng/ml METHADONE VISTA NEG NEGATIVE [facility] al MINIMUM LEVEL OF DETECTION IS 300 ng/ml OPIATE VISTA NEG NEGATIVE [facility] MINIMUM DETECTION LEVEL IS 300 ng/ml ID Date Data Source [id number] 04/13/2021 09:38:00 PM EDT [facility] Name Value Range Interpretation Code Description Data Stephanie rce(s) Supporting Document(s) URINE COLOR Yellow [facility] UAPR Turbid [facility] UGLU Negative NEGATIVE [facility] URINE BILIRUBIN [facility] Negative NEGATIVE [facility] USG 1.017 1.010-1.025 [facility] UBLO Negative NEGATIVE [facility] UpH 7.5 5.0-8.0 [facility] UPRO Negative Negative [facility] UUB 1.0 mg/dL 0.2-1.0 [facility] UNIT Negative Negative [facility] ULEU Trace Negative [facility] ID Date Data Source [id number] 04/13/2021 09:38:00 PM EDT [facility] Name Value Range Interpretation Code Description Data Stephanie rce(s) Supporting Document(s) URINE RBC 0-2 RBCs/HPF NONE SEEN [facility] URINE WBC 0-2 WBCs/HPF NONE SEEN [facility] URINE BACTERIA Few NONE SEEN [facility] URINE EPI. Many NONE SEEN [facility] URINE CRYSTAL MANY AMORPHOUS NONE SEEN [facility] pital ID Date Data Source [id number] 04/13/2021 09:38:00 PM EDT [facility] Name Value Range Interpretation Code Description Data Stephanie rce(s) Supporting Document(s) HCG QUAL URINE Negative Negative [facility] l ID Date Data Source [id number] 04/14/2021 04:43:00 PM EDT [facility] Physician DocumentationClaxlexy-Naveen Hinkle edical CenterName: Yareli DuvallAge: 20 yrsSex: FemaleDOB: 2000MRN: [id number] Date: 04/13/2021Time: 20:28Account#: [id number] MD: NONE, - Per PatientED Physician Santiago RajanDiszach Summary:04/14/21 16:06Discharge OrderedLocation: Home Self Yodkie3Gfetygd: mvqrllklm2Gttsucri: are qrlwpuootuh4Awzipyjrc: Jsgaccjb0Udiaynamj- Major depressive disorder, recurrent, gpendskbqfcpb5Gpmpgmaq:rf2- With: Private Physician- When: 2 - 3 days- Reason: Recheck today's complaints, Continuance of careDischarge Instructions:- Discharge Summary Ebakqcz18- IFYOSBNLIStg5Hcmos:- Medication Reconciliationrf2- Medication Reconciliation Form - 2nd Dkzxtp2CQR:04/320:42 This 20 yrs old White Female presents to ER via Police with complaints ofPsych Problem.th420:42 Associated signs and symptoms: Pertinent negatives: abdominal pain, chestpain, fever, mq3fodpqpru, nausea, shortness of breath, vomiting. Patient is brought in [facility] evaluation. Patient is well-known to the ER. She has been seenmany timesin the past for the same. She was last here on April 09 and was admitted atthattime. Patient reports that [facility] the lastcou[facility] dayswith suicidal ideation. [...] 400 mg intramuscular suspension,extended release syringe 400 eyekoyh01 days3. ibuprofen 400 mg Oral tablet 1 [...] Eyes: Negative for acute changes.ENT: Negative for lu7ihxjg discharge, rhinorrhea, sinus congestion. Neck: Negative for [...] 53.26 (149.69 kg, 167.64 cm)jw523:48 Pain Scale: Huhedeb037/0411:45 Pain Scale: Vgxqqnh541:43 Pain Scale: AdulttlmMDM:04/320:34 Patient medically screened.416:41 Data reviewed: vital signs, nurses notes, lab test result(s). ED course:Patient cw7kdsjjnzp stable in the ER. Patient here for mental health evaluation as above.Case isendorsed to Dr. Rajan at change of shift pending PSA evaluation disposition.Patient ismedically clear and has been cooperative..07:32 Data reviewed: lab test result(s), CBC, drug level(s), acetaminophen,alcohol, os5zybuqqifcv, electrolytes, hepatic panel, urinalysis, urine drug screen,COVID-19.Transition of care: Care assumed from Nils Argueta MD.16:06 ED course: Patient being recommended for discharge home by Dr. Patten with adiagnosis of ry5srevlplccj.04/320:39 Order name: Acetaminophen Level; Complete Time: ::39 Order name: CBC with diff; Complete Time: 07:97nc279:33 Interpretation: Abnormal: WBC 11.79; Mild leukocytosis.:39 Order name: CMP; Complete Time: ::39 Order name: COVID-19 PROFILE+LAB; Complete Time: ::39 Order name: ETOH; Complete Time: :0:39 Order name: Glucose; Complete Time: 07:57iu3797:32 Interpretation: Within normal limits.rf210/0320:39 Order name: Salicylate [...] Order name: Medically Cleared for Eval by-Psychosocial, Prep Manager (.PSA)vw1Agvlxqfsg Medications:04/322:16 Drug: Ibuprofen 600 mg [ibuprofen 600 mg tablet (1 tabs)] Route: PO;kk223:48 Follow up: Pain 3/10 Etpshbt878/0410:16 Drug: Propranolol 10 mg Route: PO;ef110:46 Follow up: Response: No adverse jherguqqpu384:16 Drug: sertraline 50 mg Route: PO;ef110:46 Follow up: Response: No adverse kxdquosjwg280:16 Drug: Topiramate 75 mg Route: PO;ef110:45 Follow up: Response: No adverse zmajnzuhyt634:16 Drug: Loratadine 10 mg Route: PO;ef110:45 Follow up: Response: No adverse wqlgugimad564:17 Drug: ARIPiprazole 10 mg Route: PO;ef110:46 Follow up: Response: No adverse pxehmtzcnv796:45 Drug: Acetaminophen Tablet 650 mg Route: PO;ef111:45 Follow up: Pain 0/10 Yvxgnxb7Dcmxytyeym:Disp Zakia Buchanan RN RN wp8TuihvupNils Argueta MD MD xp8BcesbFortunato humphrey RN RN il2KcqibdlvAmi Medrano RN JOSE LUIS tq4HzyhnSantiago betts MD MD rf2 Name Value Range Interpretation Code Description Data Stephanie rce(s) Supporting Document(s) ID Date Data Source [id number] 04/14/2021 04:43:00 PM EDT [facility] Nurse's NotesClaxSt. [facility] Tootie terName: Yareli DuvallAge: 20 yrsSex: FemaleDOB: 2000MRN: [id number] Date: 04/13/2021Time: 20:28Account#: [id number] 1Polga SMITH: NONE, - Per PatientDiagnosis: Major depressive disorder, recurrent, unspecifiedPresentation:04/320:29 Presenting complaint: Patient states: [facility] yk0Mfzdfom to this ED by [facility]. Patient reports that she escaped from the [facility]. International Travel Fever No. Coronavirus Screening: Have you beendiagnosed with COVID-19 in the past 30 days? no Are you currently on quarantinebyPublic Health? no Flu-like symptoms reported in the last 14 days: no. Have youhadclose contact with confirmed or suspected COVID-19 case? no Do you live in asettingwhere a large of amount of people live, such as fdc, family care,half-way, etc?yes. Have you traveled to a location with widespread or ongoing COVID-19communityspread or outside of [facility]? no Have you traveled internationally or hadcontact withsomeone that has traveled and has been ill in the past 3 weeks? no Have youreceivedthe COVID vaccine? Yes Sophia x 1 dose. Communicable Disease Screen: Negativeforfever>/= 100 degrees Fahrenheit. Communicable disease screen is negative. (-)rash orunusual skin lesion (-) travel/contact with traveler (-) respiratory symptoms.Communication Speaks Lebanese? Yes, is preferred language.20:29 Acuity: Triage 8bc387:29 Method Of Arrival: Komjamhu278:30 Acuity Assignment: Triage 7rf3Epglho Assessment:20:31 General: Appears in no apparent distress, [...] 400 mg intramuscular suspension,extended release syringe 400 noljlbz26 days3. ibuprofen 400 mg Oral tablet 1 [...] threats or abuse. Denies injuries from another.Nutritional kp6vnvpmreud: No deficits noted. Offer of HIV testing: [...] appears in no apparent distress at this time.iy0Dkbzxspbvdme:04/322:01 Mental health consult is initiated at 22:01.sm822:12 SAFE Act Report Not Completed. Intervention: Observation Level 3.Referral Information: bj5Lmlzrtmoko referral is generated by a police agency: [facility]. The patient wasreferred forevaluation because suicidal ideations.22:23 Subjective: The patients chief complaint is Pt [facility] sl7glszcixav. As PSA was going into her room pt was tapping her head off the wall.Pt wasdischarged from our unit on Wednesday (04/11), she then went to [facility] late Wednesday night. Pt had walked out of [facility] and [facility] [...] has a long history of mental healthtreatment [facility] facilities. She has a history of Anxiety, Bipolar, Depression, andBPD. Pt hasa history of reported suicide attempts by overdosing. Pt denies hallucinations.Pt doesnot present with any delusional thoughts. Delusions are denied, Hallucinationsaredenied. Patient's mood is depressed, Having thoughts of suicide. Deniessuicidal plan.homicide: denies plan. Homicidal thoughts directed towards mother.22:30 Narrative PSA spoke to Dulce at [facility] ([phone]). She states that itis "the same sm8old thing" as to why the pt is in the ED. She states that the pt was dischargedfromour unit then went to [facility] for suicidal ideations. She states that thept madeit back to them in scrubs and stated that she asked [facility] what wouldhappen if shewalked out which they told her that they would have to call the police. Policethenshowed up at [facility] and brought her to us.22:33 Patient reports history of anxiety, Bipolar Disorder, Depression, self-mutilation, ek5swedguj attempt: pt reports multiple by overdosing Mental Health Admissions:multipletimes at multiple facilities Current Outpatient Mental Health Services:[facility]iat[facility] [place]. Living Environment: Family / HomeSupport: [facility]The [facility] currently lives in a [facility] apartment. The patient is single. Detox /RehabAdmissions: None. Current Outpt Alcohol or Substance Abuse Services: None.22:34 Patient presents to Emergency Department with the following symptomswithin the past 2 tr7lvkke: suicidal ideation with no plan. Patient presents [...] patient status is not currently needed orappropriate. of0Cdverrhqonwb: Psych MD informed of patient's status at 22:30, ED MD notified ofpatients status at 22:46. Disposition: Medically cleared for disposition by Meet.Psychiatric Consult is performed by phone with Dr David Gray-HILDA The patientis to betransferred to bed availability facility. Legal Status: Patient's legal statuswi beDirectory of [facility] Services: 9.37. Commitment papers are completed. DSM-VDX [place] Idiagnosis: Depression, Unspecified. 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 Rankin SuicideSeverityRating Scale: Suicidal Ideation Rating 2; Intensity of Ideations Rating 23;SuicidalBehavior Rating 0.04/416:02 Narrative Pt will be discharged home per Dr. Patten. Pt can contract [facility] and denies am11SI/HI. Pt will follow up with outpatient services. Pt provided contactinformation forPSA and [facility]. Pt will come to the ED if problems continue or worsen.Psych:04/320:50 Subjective: Delusions are denied, Hallucinations are denied Havingthoughts of suicide. gh6Vztfng suicidal plan. Objective: Patient is cooperative, Speech [...] 53.26 (149.69 kg, 167.64 cm)jw523:48 Pain Scale: Dwbcplh040/0411:45 Pain Scale: Ayxsoyb514:43 Pain Scale: AdulttlmED Course:04/320:29 Patient arrived in [...] Physician role handed off by Nils Argueta, AXns013:32 Santiago Rajan MD is Attending Physician.rf208:16 Diet tray given.vz8Nmdnwgttbsyp Medications:04/322:16 Drug: Ibuprofen 600 mg [ibuprofen 600 mg tablet (1 tabs)] Route: PO;kk223:48 Follow up: Pain 3/10 Sjuxovu546/0410:16 Drug: Propranolol 10 mg Route: PO;ef110:46 Follow up: Response: No adverse seidwbsydj946:16 Drug: sertraline 50 mg Route: PO;ef110:46 Follow up: Response: No adverse gpbhylmcuj808:16 Drug: Topiramate 75 mg Route: PO;ef110:45 Follow up: Response: No adverse nlbceockli568:16 Drug: Loratadine 10 mg Route: PO;ef110:45 Follow up: Response: No adverse nplnkrbirs833:17 Drug: ARIPiprazole 10 mg Route: PO;ef110:46 Follow up: Response: No adverse etmixknwsg648:45 Drug: Acetaminophen Tablet 650 mg Route: PO;ef111:45 Follow up: Pain 0/10 Eqlkvze4Uczymzv:16:06 Discharge ordered by .rf216:43 Condition: stable.tlm16:43 Discharge inst ructions given to patient, Instructed on dischargeinstructions, followup and referral plans. Demonstrated understanding of instructions.16:43 Discharge Assessment: Patient awake, alert and oriented x 3. Nocognitive and/orfunctional deficits noted. Patient verbalized understanding of dispositioninstructions. Patient verbalized understanding of disposition instructions.Patient hasno functional deficits.16:43 Patient left the ED.tlmSignatures:Magaly Gray, RN RN tlmKnightZakia RN RN az5ZwnlssyNils Argueta MD MD jr5ZghniFortunato humphrey RN RN rp1SwkioryyAmi arthur RN JOSE LUIS cd6QaeaIna Jack am11MeasUsha apple jc2VyqueSantiago betts MD MD wo5Ichpylhtzfw: (The following items were deleted from the [...] Pt presents to the EDby [employer] for kj7tpqwunru ideations. A s PSA was going into her room pt was tapping her head offthewall. Pt was discharged from our unit on Wednesday (04/11), [facility]. Pt had walked [facility] back [facility] where the police picked her up [...] rce(s) Supporting Document(s) ID Date Data Source [id number] 04/12/2021 04:52:00 AM EDT [facility] Name Value Range Interpretation Code Description Data Stephanie rce(s) Supporting Document(s) Sodium 138 mmol/L 136-145 Normal (applies to non-numeric resul ts) [facility] Potassium 3.5-5.1 Normal (applies to non-numeric resul ts) [facility] Chloride 102 mmol/L 98-107 Normal (applies to non-numeric resul ts) [facility] Carbon Dioxide CO2 21-32 Normal (applies to non-numer ic results) [facility] Anion Gap 5.0-16.0 Normal (applies to non-numeric resul ts) [facility] BUN 13 mg/dL 7-18 Normal (applies to non-numeric results) [facility] Creatinine,Serum 0.7-1.2 Normal (applies to non-numeric results) [facility] GFR >60 Normal (applies to non-numeric results) [facility] Glucose Level 97 mg/dL 60-99 Normal (applies to non-numeric re sults) [facility] Reference range is only applicable when patient is fasting Note the following drug interference: Sulfasalazine Sulfapyridine Can see falsely depressed Can see falsely elevated result with up to 17% results with up to 11% decrease in measurement increase in measurement Recommend patients be collected for this test prior to administration of either drug. Calcium 8.5-10.1 Normal (applies to non-numeric resul ts) [facility] Bilirubin,Total 0.1-1.9 Normal (applies to non-numeric results) [facility] SGOT(AST) 30 U/L 15-37 Normal (applies to non-numeric resul ts) [facility] Note the following drug interference: Sulfasalazine Sulfapyridine Can see falsely depressed Can see falsely elevated result with up to 10% results with up to 10% decrease in measurement increase in measurement Recommend patients be collected for this test prior to administration of either drug. SGPT(ALT) 54 U/L 12-78 Normal (applies to non-numeric resul ts) [facility] Note the following drug interference: Sulfasalazine Sulfapyridine Can see falsely depressed Can see falsely elevated result with up to 29% results with up to 10% decrease in measurement increase in measurement Recommend patients be collected for this test prior to administration of either drug. Alkaline Phosphatase 130 U/L 38-126 Above high normal [facility] can increase Alkaline Phosp le vels up to 2 times the normal adult value. Normal values for children and adolescents are 2 to 3 times the normal adult value. Total Protein 6.0-8.2 Above high normal [facility] Albumin Level 3.4-5.0 Normal (applies to non-numeric re sults) [facility] ID Date Data Source [id number] 04/12/2021 04:52:00 AM [facility] Value Range Interpretation Code Description Data Stephanie rce(s) Supporting Document(s) Acetaminophen 10.0-30.0 Below low normal [facility] ID Date Data Source [id number] 04/12/2021 04:52:00 AM EDT [facility] Name Value Range Interpretation Code Description Data Stephanie rce(s) Supporting Document(s) Magnesium 1.8-2.4 Normal (applies to non-numeric resul ts) [facility] ID Date Data Source [id number] 04/12/2021 04:52:00 AM [facility] Value Range Interpretation Code Description Data Stephanie rce(s) Supporting Document(s) Troponin I 0.000-0.056 Normal (applies to non-numeric resu lts) [facility] ID Date Data Source [id number] 04/12/2021 04:52:00 AM [facility] Value Range Interpretation Code Description Data Stephanie rce(s) Supporting Document(s) Salicylate 2.8-20.0 Below low normal [facility] ID Date Data Source [id number] 04/12[facility] 04:[facility] Value Range Interpretation Code Description Data Stephanie rce(s) Supporting Document(s) Ethanol Less than 10.0 Normal (applies to non-numeric r esults) [facility] ID Date Data Source [id number] 04/12/2021 04:23:00 AM EDT [facility] Name Value Range Interpretation Code Description Data Stephanie rce(s) Supporting Document(s) White Blood Count 3.5-10.5 Normal (applies to non-numeri c results) [facility] Red Blood Count 3.90-5.00 Normal (applies to non-numeric results) [facility] Hemoglobin 12.0-15.5 Normal (applies to non-numeric resul ts) [facility] Hematocrit 34.9-44.5 Normal (applies to non-numeric resul ts) [facility] Mean Corpuscular Volume 81.2-95.1 Normal (applies to non- numeric results) [facility] Mean Corpuscular Hgb 25.6-32.2 Normal (applies to non-num deena results) [facility] Mean Corpuscular Hgb Conc 32.0-36.0 Normal (applies to no n-numeric results) [facility] Red Cell Distribution Width 11.9-15.5 Normal (appli es to non-numeric results) [facility] Platelet Count 306 x10 3/uL 150-450 Normal (applies to non-numeric results) [facility] Mean Platelet Volume 9.4-12.4 Normal (applies to non-num deena results) [facility] Neutrophils% (Auto) 31.0-71.0 Normal (applies to non-nume frank results) [facility] Lymphocytes% (Auto) 20.0-55.0 Normal (applies to non-nume frank results) [facility] Monocytes% (Auto) 4.0-12.0 Normal (applies to non-numeri c results) [facility] Eosinophils% (Auto) 1.0-8.0 Normal (applies to non-nume frank results) [facility] Basophils% (Auto) 0.0-2.0 Normal (applies to non-numeri c results) [facility] Immature Granulocytes% (Auto) 0.0-2.0 Normal (alexander lies to non-numeric results) [facility] Neutrophils# (Auto) 1.50-6.20 Above high normal [facility] Lymphocytes# (Auto) 1.20-4.00 Normal (applies to non-nume frank results) [facility] Monocytes# (Auto) 0.00-0.90 Normal (applies to non-numeri c results) [facility] Eosinophils# (Auto) 0.00-0.50 Normal (applies to non-nume frank results) [facility] Basophils# (Auto) 0.00-0.20 Normal (applies to non-numeri c results) [facility] Immature Granulocytes# (Auto) 0.00-7.00 No rmal (applies to non-numeric results) [facility] ID Date Data Source [id number] 04/12/2021 03:50:00 AM EDT [facility] Name Value Range Interpretation Code Description Data Stephanie rce(s) Supporting Document(s) Respiratory specimen severe acute respir atory syndrome coronavirus 2 (SARS-CoV-2) RNA Not Detected [facility] This lab was ordered by [facility] and reported by . ID Date Data Source [id number] 04/12/2021 05:08:00 AM EDT [facility] Name Value Range Interpretation Code Description Data Stephanie rce(s) Supporting Document(s) RP Internal Control Passed Normal (applies to non-nume frank results) [facility] Adenovirus None Detect Normal (applies to non-numeric resu lts) [facility] Coronavirus 229E None Detect Normal (applies to non-numeri c results) [facility] Coronavirus HKU1 None Detect Normal (applies to non-numeri c results) [facility] Coronavirus NL63 None Detect Normal (applies to non-numeri c results) [facility] Coronavirus OC43 None Detect Normal (applies to non-numeri c results) [facility] SARS-CoV-2 Not Detect Normal (applies to non-numeric resul ts) [facility] Negative results do not preclude SARS-Co V-2 infection and should not be used as the sole basis for treatment or other patient management decisions. Negative results must be combined with clinical observations, patient history, and epidemiological information. Testing was performed using the Ceres real-time nested multiplexed PCR Respiratory Panel 2.1 [...] Detect Normal (applies to non-n umeric results) [facility] Rhino/Enterovirus None Detect Normal (applies to non-numer ic results) [facility] Influenza A None Detect Normal (applies to non-numeric res ults) [facility] Influenza B None Detect Normal (applies to non-numeric res ults) [facility] Parainfluenza Virus 1 None Detect Normal (applies to non-n umeric results) [facility] Parainfluenza Virus 2 None Detect Normal (applies to non-n umeric results) [facility] Parainfluenza Virus 3 None Detect Normal (applies to non-n umeric results) [facility] Parainfluenza Virus 4 None Detect Normal (applies to non-n umeric results) [facility] Respiratory Syncytial Virus None Detect Norm al (applies to non-numeric results) [facility] Bordetella Parapertussis None Detect Normal (applies to non-numeric results) [facility] Bordetella Pertussis None Detect Normal (applies to non-nu meric results) [facility] Chlamydia Pneumoniae None Detect Normal (applies to non-nu meric results) [facility] Mycoplasma Pneumoniae None Detect Normal (applies to non-n umeric results) [facility] Methodology: Multiplexed PCR Refer ence Range: None detected ID Date Data Source [id number] 04/12/2021 04:42:00 AM [facility] Collected By: Nurse Initials: cs Time Collected: 324 Collected By: Nurse Initials: cs Time Collected: 324 Name Value Range Interpretation Code Description Data Stephanie rce(s) Supporting Document(s) Color,Urine Colorl-Dk Y Normal (applies to non-numeric res ults) [facility] Clarity,Urine Clear [facility] Specific [place],Urine 1.005-1.030 Normal (applies to non- numeric results) [facility] pH,Urine 5.0-8.0 Normal (applies to non-numeric resul ts) [facility] Protein,Urine Negative [facility] Glucose,Urine Negative Normal (applies to non-numeric re sults) [facility] Ketones,Urine Negative [facility] Blood,Urine Negative Normal (applies to non-numeric resu lts) [facility] Bilirubin,Urine Negative Normal (applies to non-numeric results) [facility] Urobilinogen,Urine 0.2-1.0 Normal (applies to non-numer ic results) [facility] Leukocyte Esterase,Urine Negative Normal (applies to non -numeric results) [facility] Nitrite,Urine Negative Normal (applies to non-numeric re sults) [facility] ID Date Data Source [id number] 04/12/2021 04:42:00 AM [facility] Collected By: Nurse Initials: cs Time Collected: 324 Collected By: Nurse Initials: cs Time Collected: 324 Name Value Range Interpretation Code Description Data Stephanie rce(s) Supporting Document(s) RBC,Urine None Seen Normal (applies to non-numeric resul ts) [facility] WBC,Urine None Seen [facility] Casts,Urine None Seen Normal (applies to non-numeric resu lts) [facility] Squamous Cells,Urine None Seen [facility] Amorphous Sediment,Urine None Seen [facility] Bacteria,Urine None Seen [facility] ID Date Data Source [id number] 04/12/2021 04:32:00 AM EDT [facility] Name Value Range Interpretation Code Description Data Stephanie rce(s) Supporting Document(s) UDS Benzodiazepines Screen Negative Normal (applies to n on-numeric results) [facility] UDS Cocaine Screen Negative Normal (applies to non-numer ic results) [facility] UDS Ampetamine Screen Negative Normal (applies to non-nu meric results) [facility] UDS Cannabinoids Screen Negative Normal (applies to non- numeric results) [facility] UDS Opiates Screen Negative Normal (applies to non-numer ic results) [facility] UDS Barbiturates Screen Negative Normal (applies to non- numeric results) [facility] Threshold Levels Benzodiazepine 200 ng/mL Cocaine 300 ng/mL Amphetamines 1000 ng/mL Cannabinoids (THC) 50 ng/mL Opiates 300 ng/mL Barbiturates 200 ng/mL All positive findings are presumptive and unconfirmed. Confirmation of positive results are performed only at request of provider. Unconfirmed results must not be used for non-medical purposes (i.e. preemployment and legal purposes) ID Date Data Source [id number] 04/11/2021 01:49:00 PM EDT [address] DISCHARGE SUMMARYPATIENT NAME: YARELI HATCH MR#: [id number] PHYSICIAN: BOGDAN MACIAS MDAUTHOR: Colleen SMITH,Bogdan DATE: 04/09/21 #: [id number] DATE: 04/11/21HistoryIdentificationThis is a 41-ojdds-khi white female.Chief Complaint"I am having suicidal thoughts and anxiety."Reason for AdmissionPatient is well known to us. She presented to the ER with the complaint ofincreased suicidal ideations after an argument with her significant other. Shehas a history of suicidal ideations and multiple inpatient treatment. Patientcannot contract for safety. Hence, she was hospitalized.History of Presenting IllnessPatient was seen today along with the potable water treatment operator, Gloria, and a PAstudent from [facility]. She presented to the ER with [facility] due to patient contacting them stating [...] hasn't beensleeping for 3 weeks.Patient was at [facility] since and transferred to [facility] and discharged. She states that [facility] and[facility] and has been trying to be admitted to several hospitalsthere. Stated she cannot contract for safety and thus requested an inpatienttreatment. She reported increased stress due to not feeling safe at her TLSresidence due to another resident, increased family conflict due to beingtransgender and ex being in [facility]. She also reported that she was notfollowing the rule of TLS. She is not diligent with medications.Past Psych/Medical HistoryPsychiatric HistoryShe has long history of psychiatric problem including bipolar disorder, ADHD,anxiety, and depression with numerous hospitalizations. She has attemptedsuicide multiple times by overdose and by cutting herself. She was dischargedjust one day before her last hospitalization. She [place] outpatient servicesat the community clinic in [place]. She is on AOT since 01/09/21.Medical HistoryDenies [...] she would prefer to bedischarged back to [facility] as she is no longer feeling [...] She [facility] that [facility] [...] 240Continue taking these medications:IBUPROFEN (IBUPROFEN) 400 MG [id number] MILLIGRAM Orally EVERY 6 HOURS NEEDED as needed for HeadacheQty = 21Loratadine* (Claritin*) 10 MG GVAFAP28 MILLIGRAM Orally DAILYDays = 30 Qty = 30PROPRANOLOL HCL (Inderal*) 10 MG HTFCSF03 MILLIGRAM Orally TWICE DAILYDays = 30 Qty = 60TOPIRAMATE (TOPAMAX) 25 MG YIBBJF44 MILLIGRAM Orally DAILYDays = 60 Qty = 30SERTRALINE (Zoloft*) 50 MG HCYHDO506 MILLIGRAM Orally DAILYDays = 30 Qty = 30MONTELUKAST SODIUM (MONTELUKAST) 10 MG BAOYBU93 MILLIGRAM Orally DAILYDays = 30 Qty = 30Aripiprazole* (Abilify*) 10 MG ZYHVPP55 MILLIGRAM Orally DAILYPRAZOSIN HCL (PRAZOSIN HCL) 2 MG CAPSULE2 MILLIGRAM Orally AT BEDTIMEOlanzapine* (Zyprexa*) 5 MG TABLET5 MILLIGRAM Orally AT BEDTIMEAripiprazole (Abilify Maintena) 400 MG SUSER.WAI964 MILLIGRAM Intramuscularly A35NCga = 1Instructions:last im inj received 04/03/21Discharge Activity: As toleratedDischarge diet: RegularFollow-upFollow up with your Primary care physicianFollow up with therapiest and psychiatristrecommended outpt chemical dependencyReferralsOrdered ReferralsCOMCHANDL[facility] [place] [address] [phone]) [facility] April 15 at9:[address] Giles.[facility] [place] [address] In person follow up appointment [facility](#[phone]) on April 18 at2:00 pm with Grayson.DATE SIGNED: 04/11/21 Electronically Melania dTIME SIGNED: 1353 BOGDAN MACIAS MD Name Value Range Interpretation Code Description Data Stephanie rce(s) Supporting Document(s) ID Date Data Source [id number] 04/11/2021 09:25:00 AM EDT [address] [id number] NAME: YARELI HATCH#: [id number] PHYSICIAN: HUBER VELAZQUEZ #: [id number] ADM. DATE: 04/09/21PATIENT : 00 DISCH. DATE: [...] follow-upappointmentDischarge InformationDISCHARGE INFORMATION* Thank you for choosing [facility] and allowing us toserve you* Our Goal is to provide the highest quality of care.* This discharge information is to help you better understand your diagnosisand medication* Avoid taking hkfj-uez-snbwlpc medicines unless approved by your physician.* Take your medications as prescribed. DO NOT stop any medications unlessapproved first* Weigh yourself daily. Report any gain of 5 lbs in a week* 24 Hour Crisis HOTLINE available: Call Reachout at [phone]* Chem. Dependency: Walk in Clinics [place] ([phone]) and [place] ([phone]) anytime Wednesday thru Wednesday 8 to 10am. [place] ([phone]) anytimeMond thru Wednesday 8 to 10am. [place] ([phone]) Wednesday or Wednesday from 8to 10am (Bring $30 to First [facility]) SMOKIN G CESSATION* Smoking is dangerous to your health. It delays the healing process, andworks against your medications. Not smoking will improve your health* Our hospital participates with the Opt-to-Quit program. You will be contactedafter discharge by the [facility] Smoker's Quitline for support with tobaccocessation. You have the option once contacted to refuse this service.* You can also go online to www.ZeroMail.Yoics. Free nicotine replacementsare available Attention* You should [...] rce(s) Supporting Document(s) ID Date Data Source [id number] 04/10/2021 01:59:00 PM EDT [address] HEALTH PROGRESS NOTEPATIENT NAME: YARELI HATCH PHYSICIAN: BOGDAN MACIAS, MDAUTHOR: Colleen SMITH,DhruvADM. DATE: 04/09/21 MR#: [id number] NOTE DATE: 04/10/21 RM#: [id number] TIME: 1402 is a 48-heszm-cuf white female.CC/Hx Present Illness"I am having suicidal thoughts and anxiety."Events Since Last EntryPatient reported that she has been feeling better, she stated that she wouldlike to go back to [facility], she stated that she was dealing [...] rce(s) Supporting Document(s) ID Date Data Source [id number] 04/10/2021 07:18:00 AM EDT [address] HEALTH HISTORY AND PHYSICALPATIENT NAME: YARELI HATHC MR#: [id number] PHYSICIAN: BOGDAN MACIAS MDAUTHOR: Evi SMITH,S. DATE: [...] Home Medication ListAllergiesCoded Allergies:risperidone (08/04/19)ExamVital SignsVital Signs-24 HRS09/366817Wcbu 98.8Pulse 80Resp 18B/P 122/65B/P MeanPulse Ox 99O2 DeliveryO2 Flow PankTxS4Wenuemtrgl/PlanDiagnosis/Problem1. Major depressive disorderStatus Chronic2. Suicide attemptStatus Acute3. Bipolar affective disorderStatus Chronic4. Bipolar disorder5. Borderline personality disorderStatus Chronic6. Obesity, morbidStatus ChronicDATE SIGNED: 04/10/21 Deann garcia SignedTIME SIGNED: 731 DORI KENNEDY MD Name Value Range Interpretation Code Description Data Stephanie rce(s) Supporting Document(s) ID Date Data Source [id number] 04/09/2021 04:05:[address] PM EDT [address] PSYCHIATRIC ASSESSMENTPATIENT NAME: YARELI HATCH MR#: [id number] PHYSICIAN: BOGDAN MACIAS MDAUTHOR: Surendra SMITH,P. DATE: 04/09/21 #: 3RDHistoryIdentificationThis is a 23-cvixh-par white female.Chief Complaint"I am having suicidal thoughts and anxiety."Reason for AdmissionPatient is well known to us. She presented to the ER with the complaint ofincreased suicidal ideations after an argument with her significant other. Shehas a history of suicidal ideations and multiple inpatient treatment. Patientcannot contract for safety. Hence, she was hospitalized.History of Presenting IllnessPatient was seen today along with the potable water treatment operator, Gloria, and a PAstudent from [facility]. [facility] stating with [...] hasn't beensleeping for 3 weeks.Patient was at [facility] since and transferred to [facility] and discharged. She states that she [facility] and[facility] and has been trying to be admitted to several hospitalsthere. Stated she cannot contract for safety and thus requested an inpatienttreatment. She reported increased stress due to not feeling safe at her TLSresidence due to another resident, increased family conflict due to beingtransgender and ex being in [facility]. She also reported that she was notfollowing [...] attends outpatient servicesat the community [facility] in [place]. She is on AOT since 01/09/21.Medical HistoryDenies [...] rce(s) Supporting Document(s) ID Date Data Source [id number] 04/09/2021 07:55:00 [facility] Name Value Range Interpretation Code Description Data Stephanie rce(s) Supporting Document(s) LCOVID-19, CORDELL NEGATIVE [place] This lab was ordered by [facility] and reported by [facility]. ID Date Data Source [id number] 04/09/2021 08:19:00 AM EDT [facility] Name Value Range Interpretation Code Description Data Stephanie rce(s) Supporting Document(s) COVID-19, CORDELL NEGATIVE NEGATIVE [facility] Methodology: Isothermal Nucleic Acid Amp lification [...] Emergency Use Authorization. ID Date Data Source [id number] 04/08/2021 11:32:00 PM EDT [facility] Name Value Range Interpretation Code Description Data Stephanie rce(s) Supporting Document(s) SALICYLATE < 1.7 mg/dL 0.0-20.0 [facility] ID Date Data Source [id number] 04/08/2021 11:32:00 PM EDT [facility] Name Value Range Interpretation Code Description Data Stephanie rce(s) Supporting Document(s) ACETAMINOPHEN < 2.0 ug/mL 0-30 [facility] ID Date Data Source [id number] 04/08/2021 11:32:00 PM EDT [facility] Name Value Range Interpretation Code Description Data Stephanie rce(s) Supporting Document(s) ETOH 0.004 g/dL NONE DETECTED [facility] ID Date Data Source [id number] 04/08/2021 11:32:00 PM EDT [facility] Name Value Range Interpretation Code Description Data Stephanie rce(s) Supporting Document(s) GLU 100 mg/dL 70-110 [facility] Patients taking Sulfasalazine may have f alsely depressedGlucose levels. Patients taking Sulfapyridine may havefalsely elevated Glucose levels. Patients should be drawnfor Glucose before the initial administration of eitherdrug. BUN 12 mg/dL 7-23 [facility] CRE 0.644 mg/dL 0.500-1.300 [facility] GFR > 60 mL/min [facility] CHLORIDE 111 mmol/L 99-110 [facility] NA 142 mmol/L 136-147 [facility] POTASSIUM 3.9 mmol/L 3.5-5.1 [facility] TCO2 28 mmol/L 20-33 [facility] ANION GAP 6.9 10.0-20.0 [facility] CA 8.4 mg/dL 8.3-10.7 [facility] ALKALINE PHOS 124 U/L 45-117 [facility] TP 7.4 g/dL 6.0-7.8 [facility] ALB 3.5 g/dL 3.5-5.0 [facility] ESRD Dialysis patient Albumin reference range: 2.9-4.4 g/dL GL 3.9 g/dL 2.3-3.5 [facility] A/G 0.9 1.0-2.5 [facility] T. BILIRUBIN 0.2 mg/dL 0.1-1.1 [facility] [place] Total Bilirubin is n ot recommended forpatients undergoing treatment with eltrombopag (Promacta)due to the potential for falsely elevated results. ALTI 55 U/L 6-54 [facility] Patients taking Sulfasalazine and/or Sul fapyridine may havefalsely depressed ALT levels. Patients should be drawn forALT before the initial administration of either drug. AST 31 U/L 6-38 [facility] Patients taking Sulfasalazine and/or Sul fapyridine may havefalsely depressed AST levels. Patients should be drawn forAST before the initial administration of either drug. ID Date Data Source [id number] 04/08/2021 11:05:00 PM EDT [facility] Name Value Range Interpretation Code Description Data Stephanie rce(s) Supporting Document(s) WBC 8.86 x10E3/uL 4.0-10.5 [facility] RBC 4.27 x10E6/uL 4.20-5.40 [facility] Hemoglobin 12.5 g/dL 12.0-16.0 [facility] Hematocrit 38.3 % 37.0-47.0 [facility] MCV 89.7 fL 81.0-99.0 [facility] MCH 29.3 pg 27.0-31.0 [facility] MCHC 32.6 g/dL 32.7-35.6 [facility] RDW 12.1 % 11.5-14.0 [facility] Platelet count 266 x10E3/uL 150-450 N [facility] ital MPV 9.6 fl 6.9-9.5 [facility] Neutrophils 57.4 % 34-64 [facility] Lymphocytes 32.3 % 25-45 [facility] Monocytes 7.8 % 1.7-10.6 [facility] Eosinophils 1.7 % 0.4-7.0 [facility] Basophils 0.3 % 0.1-2.0 [facility] Imm. Gran. 0.5 % 0.1-2.0 [facility] Abs. Neutro. 5.09 x10E3/uL 1.2-7.6 [facility] Abs. Lymph. 2.86 x10E3/uL 1.0-3.5 [facility] Abs. Will. 0.69 x10E3/uL 0.1-1.0 [facility] Abs. Eosin. 0.15 x10E3/uL 0.1-0.7 [facility] Abs. Baso. 0.03 x10E3/uL 0.0-0.1 [facility] Abs. Imm. Gran. 0.04 x10E3/uL 0.0-0.1 [facility] spital ANRBC% 0 % 0 [facility] ID Date Data Source [id number] 04/08/2021 11:56:00 PM EDT [facility] Name Value Range Interpretation Code Description Data Stephanie rce(s) Supporting Document(s) PCP VISTA NEG NEGATIVE [facility] MINIMUM LEVEL OF DETECTION IS 25 ng/ml BENZODIAZEPINES NEG NEGATIVE [facility] al MINIMUM LEVEL OF DETECTION IS 200 ng/ml COCAINE VISTA NEG NEGATIVE [facility] MINIMUM LEVEL OF DETECTION IS 300 ng/ml AMPHETAMINES NEG NEGATIVE [facility] al MINIMUM LEVEL OF DETECTION IS 1000 ng/ml BARBITURATES NEG NEGATIVE [facility] CUTOFF CONCENTRATION IS 200 ng/ml CANNABINOIDS NEG NEGATIVE [facility] al CUTOFF CONCENTRATION IS 50 ng/ml METHADONE VISTA NEG NEGATIVE [facility] al MINIMUM LEVEL OF DETECTION IS 300 ng/ml OPIATE VISTA NEG NEGATIVE [facility] MINIMUM DETECTION LEVEL IS 300 ng/ml ID Date Data Source [id number] 04/08/2021 11:30:00 PM EDT [facility] Name Value Range Interpretation Code Description Data Stephanie rce(s) Supporting Document(s) URINE COLOR Yellow [facility] UAPR Turbid [facility] UGLU Negative NEGATIVE [facility] URINE BILIRUBIN Negative NEGATIVE [facility] al UKET Negative NEGATIVE [facility] USG 1.021 1.010-1.025 [facility] UBLO Negative NEGATIVE [facility] UpH 8.5 5.0-8.0 [facility] UPRO Trace Negative [facility] UUB 1.0 mg/dL 0.2-1.0 [facility] UNIT Negative Negative [facility] ULEU Trace Negative [facility] ID Date Data Source [id number] 04/08/2021 11:30:00 PM EDT [facility] Name Value Range Interpretation Code Description Data Stephanie rce(s) Supporting Document(s) URINE RBC 0-2 RBCs/HPF NONE SEEN [facility] URINE WBC 3-5 WBCs/HPF NONE SEEN [facility] URINE BACTERIA Few NONE SEEN [facility] l URINE EPI. Many NONE SEEN [facility] URINE CRYSTAL MANY AMORPHOUS NONE SEEN [facility] pital ID Date Data Source [id number] 04/08/2021 11:30:00 PM EDT [facility] Name Value Range Interpretation Code Description Data Stephanie rce(s) Supporting Document(s) HCG QUAL URINE Negative Negative [facility] ID Date Data Source [id number] 04/09/2021 04:09:00 PM EDT [facility] Physician DocumentationClaxlexy-Naveen Hinkle edical CenterName: Yareli Mejiage: 20 yrsSex: FemaleDOB: 2000MRN: [id number] Date: 04/08/2021Time: 22:26Account#: [id number] MD: NONE, - Per PatientED Physician Santiago RajanDiszach Summary:04/09/21 12:49Hospitalization OrderedHospitalization Status: Inpatient Glwdzoooefj9Rduexapi: Anjel Oneillmrf2Location: Mental Health Oxfjiw1Aqlsmyxwc: Xqxucqvq3Gymvlqp: an acute paxtuymrgvumjf7Rjwoeidj: are rauzombxfyu9Dbhk Assignment:up8Dqqlusnbh- Major depressive disorder, recurrent, fsgewposjgydr2Iybyzqjirc Information- Admission Type: Inpatient Status.dk7Xxduu:- Medication Reconciliationrf2- SBARrf2- Medication Reconciliation Form - 2nd Copyrf2- Psych. HUTIjk9YPF:03/2906:59 This 20 yrs old White Female presents to ER via Police with complaints ofPsych Problem.br07:19 20-year-old female with extensive psychiatric history of bipolar ADHDanxiety brdepression presents complaints of increasing suicidal ideation after argumentwithsignificant other. Patient states that she has plan to harm herself by hanging.In EDpatient seemed to be comfortable and cooperative.MEDIA TRAFFIC MANAGER:03/2822:31 LMP 02/20215630md4Krtihegcrr:- Allergies: Haldol; Risperdal;- Home Meds:1. prazosin 2 mg Oral capsule 1 cap every day at bedtime2. Zyprexa 5 mg Oral tablet 1 tab nightly3. montelukast 10 mg oral tablet 1 tab daily4. topiramate 75mg oral tablet daily5. aripiprazole 10 mg oral tablet 1 tab daily6. aripiprazole 400 mg intramuscular suspension,extended release syringe 400 ggjjtly69 days7. sertraline 50 mg oral tablet 1 [...] Temp 97.3; Pulse Ox 98% on R/A; Mtgnsv666.33 kg (R); zt0Umvdtk 5 ft. 6 in. ; Pain 0/10;03/2908:38 BP 123 / 77; Pulse 66; Resp 18; Temp 97(TE); Pulse Ox 98% on R/A;sw215:20 BP 126 / 70 (auto/); Pulse 70 MON; Pul se Ox 97% ;ef109/2821:31 Body Mass Index 37.12 (104.33 kg, 167.64 cm)kk:31 Pain Scale: Xkestel6AOQ:03/2822:45 Patient medically screened.br6:53 Transition of care: Care assumed from Zeeshan Grover MD.rf206:54 Data reviewed: vital signs, nurses notes, lab test result(s), CBC, druglevel(s), bm9piftqzdedqqze, alcohol, salicylate, electrolytes, hepatic panel, urinalysis,urine drugscreen. ED course: Patient is medically cleared and pending PSA evaluation.03/2822:38 Order name: Acetaminophen Level; Complete Time: 06:74lh776:38 Order name: CBC with diff; Complete Time: 06:75cl5522821:38 Order name: CMP; Complete Time: 06::38 Order name: COVID-19 PROFILE+LAB; Complete Time: 08::38 Order name: ETOH; Complete Time: 06::38 Order name: Glucose; Complete Time: 06::53 Interpretation: Within normal limits.rf:38 Order name: Salicylate Level; Complete Time: 06:48dz969:38 Order name: Triage - Drug Screen; Complete Time: 06:46hm817:38 Order name: UA; Complete Time: 06:53wo322:38 Order name: Urine HCG Qualitative; Complete Time: 06::38 Order name: Diet - Mental Health Tray (call dietary); Complete Time:00::38 Order name: Belongings List; Complete Time: 15::38 Order name: Document Weight and Height for BMI; Complete Time: ::38 Order name: Mental Health Evaluation; Complete Time: 06:65dh590:38 Order name: Mental Health Level 3; Complete Time: ::38 Order name: VS q shift; Complete Time: ::54 Order name: Medically Cleared for Eval by-Psychosocial, Prep Manager (YE);Complete Time: :27Dispensed Medications:08:37 Drug: sertraline 50 mg [sertraline 50 mg tablet (1 tabs)] Route: PO;: Follow up: Response: No adverse xzbjvfewqi113:37 Drug: Topiramate 75 mg [topiramate 25 mg tablet (3 tabs)] Route: PO;: Follow up: Response: No adverse cgcgwdrmor844:38 Drug: ARIPiprazole 10 mg [aripiprazole 10 mg tablet (1 tabs)] Route: PO;:22 Follow up: Response: No adverse fyiozhyspa473:38 Drug: Loratadine 10 mg [loratadine 10 mg tablet (1 tabs)] Route: PO;: Follow up: Response: No adverse ytzsqgyxep886:38 Drug: Montelukast 10 mg Route: PO;: Follow up: Response: No adverse kqeghaskga350:38 Drug: Propranolol 10 mg [propranolol 10 mg tablet (1 tabs)] Route: PO;: Follow up: Response: No adverse roman qvvizev0Xpblcuoctm:Dispatcher [employer] Fortunato Burrell RN RN fz1ZvnufixZeeshan Grover MD MD brKelly, Krista, RN RN nx5YzobOlivia Barros RN RN dj0MixwgSantiago betts MD MD ku7AjfjboqgAmi Medrano RN se3Lwulapfespe: (The following items were deleted from the chart)01:16 09/28 22:33 Home Meds: Lexapro 10 mg Oral tablet 1 tab nightly; kk3kk3 Name Value Range Interpretation Code Description Data Stephanie rce(s) Supporting Document(s) ID Date Data Source [id number] 04/09/2021 04:09:00 PM EDT [facility] Nurse's NotesClaxton-Tonopah Medical Tootie terName: Yareli Mejiage: 20 yrsSex: FemaleDOB: 2000MRN: [id number] Date: 04/08/2021Time: 22:26Account#: [id number] Jitendra MD: NONE, - Per PatientDiagnosis: Major depressive disorder, recurrent, unspecifiedPresentation:03/2822:28 Presenting complaint: Patient states: "I am having suicidal thoughts andanxiety.". zm5Ukwgmzvebsd Screening: Have you been diagnosed with COVID-19 in the past 30days? noAre you currently on quarantine by Public Health? no Flu-like symptoms reportedin thelast 14 days: no. Have you had close contact with confirmed or suspectedCOVID-19 case?no Do you live in a setting where a large of amount of people live, such [facility], family care, half-way, etc? no. Have you traveled to a location withwidespread orongoing COVID-19 community spread or outside of [facility]? no Have you traveledinternationally or had contact with someone that has traveled and has been illin thepast 3 weeks? no Have you received the COVID vaccine? Yes. Communication SpeaksEnglish? Yes, is preferred language. Language Line Services needed? No Are TDDneeded?No. Best learning method: discussion. Learning barriers: none identified.22:28 Acuity: Triage 6uk521:28 Method Of Arrival: Hwqhkfnz125:29 Presenting complaint: Badge #[id number] from [place] [employer] states patient madesuicidal lx5degpaxijkk and called police to be brought in.22:30 Acuity Assignment: Triage 8ow861:50 International Travel Fever No. Communicable Disease Screen: Negative forfever>/= 100 rb7soevlhs Fahrenheit. Communicable disease screen is negative. (-) rash orunusual skinlesion (-) travel/contact with traveler (-) respiratory symptoms.Triage Assessment:22:34 General: Appears in no apparent distress, well nourished, well groomed,Behavior is ho1svvoxyt, appropriate for age, cooperative, Denies fever, chills. [...] urinary frequency, urgency.Musculoskeletal: Circulation, motion, and sensation intact.MEDIA TRAFFIC MANAGER:22:31 LMP 02/20210926gm8Ebjdgsprxi:- Allergies: Haldol; Risperdal;- Home Meds:1. prazosin 2 mg Oral capsule 1 cap every day at bedtime2. Zyprexa 5 mg Oral tablet 1 tab nightly3. montelukast 10 mg oral tablet 1 tab daily4. topiramate 75mg oral tablet daily5. aripiprazole 10 mg oral tablet 1 tab daily6. aripiprazole 400 mg intramuscular suspension,extended release syringe 400 jtzhadw03 days7. sertraline 50 mg oral tablet 1 [...] threats or abuse. Denies injuries from another.Nutritional vd0tuhzgprwh: No deficits noted. Offer of HIV testing: patient was previouslyofferedscreening. Fall Risk None identified.Assessment:03/2822:37 Reassessment: see triage assessment by this flex o writer operator.kk323:59 Reassessment: Patient appears in no apparent distress at this time.jw509/2900:52 Reassessment: Patient appears in no apparent distress at this time.kk302:19 Reassessment: No changes from previously documented assessment.jw503:49 Reassessment: No changes from previously documented assessment.jw505:06 Reassessment: No changes from previously documented assessment.jw506:34 Reassessment: No changes from previously documented assessment.jw508:29 Reassessment: Patient appears in no apparent distress at this time. Nochanges from ux1pzhwldcszn documented assessment. Sitter at bedside. .09:59 Reassessment: Patient appears in no apparent distress at this time. Nochanges from pp7zvrlwiglyn documented assessment. Patient sleeping in bed. Sitter at bedside. .10:57 Reassessment: Patient appears in no apparent distress at this time. Nochanges from pj4tgmtcohnah documented assessment. Patient sleeping. Sitter at bedside. .Psychosocial:04:52 Narrative PSA spoke to Dulce at [facility] ([phone]) who states that thepatient was ve1vsya all day. She states that she was [...] Completed. Interventi on: Observation Level 3.Referral Information: jl6Mfhlcptmqn referral is generated by a police agency: [employer]. The patient wasreferred forevaluation because patient had voiced suicidal ideations.05:09 Subjective: The patients chief complaint is Pt presents to the ED by [employer].Patient sz0fvfwmns feeling suicidal for "a while" now and [...] history of anxiety, Bipolar Disorder, Depression, self-mutilation, an8Cyfst: [employer]. Mental Health Admissions: several. pt was last at [facility] 04/01/21 anddischarged 04/03 Current Outpatient Mental Health Services[facility] [place] Living Environment: Family / Home Support: poorThepatient currently lives in a [facility] residence. The patient is single. Detox /RehabAdmissions: None. Current Outpt Alcohol or Substance Abuse Services: None.05:16 Patient presents to Emergency Department with the following symptomswithin the past 2 fm0ibuah: suicidal ideation with plan for jump in [...] patient status is not currently needed orappropriate. zz8Ckrezlgtpzmq: Psych MD informed of patient's status at 06:00, ED MD notified ofpatients status at 06:34. Disposition: Medically cleared for disposition by [facility].Psychiatric Consult is performed by phone with Dr David STEVENS. DSM-V DX [place] Idiagnosis:Depression, Unspecified. Insurance Pre-Certification: Not Required. IMHUAdmissionCriteria: [...] dosageadjustments. Awaiting. The patient is not a service shop foreman or militarydependent.[place] Suicide Severity Rating Scale: Suicidal Ideation Rating 5; IntensityofIdeations Rating 25; Suicidal Behavior Rating 0.Psych:00:00 Subjective: Patient's mood is elevated, Delusions are denied,Hallucinations are denied wh2Yykpua thoughts of suicide. Denies suicidal plan. Objective: [...] Temp 97.3; Pulse Ox 98% on R/A; Vjnnjv920.33 kg (R); tc9Jmafwm 5 ft. 6 in. ; Pain 0/10;03/2908:38 BP 123 / 77; Pulse 66; Resp 18; Temp 97(TE); Pulse Ox 98% on R/A;sw215:20 BP 126 / 70 (auto/); Pulse 70 MON; Pulse Ox 97% ;ef109/2822:31 Body Mass Index 37.12 (104.33 kg, 167.64 cm)kk309/2822:31 Pain Scale: Krtphxl4MS Course:03/2822:27 Patient arrived in ED.kk322:27 NONE, - Per Patient is Private Physician.kk322:30 Triage completed.kk322:39 Ratna Barbosa, RN is Primary Nurse.kk322:45 Zeeshan Grover MD is Attending Physician.br23:59 Primary Nurse role handed off by Ratna Barbosa, YGfn970:59 Fortunato Mark, RN is Primary Nurse.jw509/2900:00 Patient has correct armband on for positive identification. Bed in lowposition. Sitter jw5at bedside.00:00 No Physician assisted procedures completed.jw502:19 Sitter at bedside.jw503:49 Sitter at bedside.jw505:06 Sitter at bedside.jw506:34 Sitter at bedside.jw506:50 Attending Physician role handed off by Zeeshan Grover, KGxw868:50 Santiago Rajan MD is Attending Physician.rf206:59 Attending Physician role handed off by Santiago Rajan MDbr06:59 Zeeshan Grover MD is Attending Physician.br07:22 Attending Physician role handed off by Zeeshan Grover, UJbe886:22 Santiago Rajan MD is Attending Physician.rf212:48 Brooklyn Oneill MD is Hospitalizing Provider.rf214:54 Primary Nurse role handed off by Fortunato Mark RNGKgm3Fswucuwnvyyd Medications:08:37 Drug: sertraline 50 mg [sertraline 50 mg tablet (1 tabs)] Route: PO;215:21 Follow up: Response: No adverse ismotvhqwh460:37 Drug: Topiramate 75 mg [topiramate 25 mg tablet (3 tabs)] Route: PO;215:21 Follow up: Response: No adverse hibkzmbrao105:38 Drug: ARIPiprazole 10 mg [aripiprazole 10 mg tablet (1 tabs)] Route: PO;215:22 Follow up: Response: No adverse omszzqodxo833:38 Drug: Loratadine 10 mg [loratadine 10 mg tablet (1 tabs)] Route: PO;215:21 Follow up: Response: No adverse yhmsjigjqu673:38 Drug: Montelukast 10 mg Route: PO;215:21 Follow up: Response: No adverse faofnirynr788:38 Drug: Propranolol 10 mg [propranolol 10 mg tablet (1 tabs)] Route: PO;215:21 Follow up: Response: No adverse olrgvvvxyn3Hhtbfxj:12:49 Decision to Hospitalize by Provider.rf215:22 Disposition: Admitted to Psych accompanied by nurse, with chart.ef115:22 Condition: stable, Provider notified of abnormal vital signs.15:22 Discharge instructions given to patient, Instructed on need for admit,Demonstratedunderstanding of instructions.15:22 Discharge Assessment: Patient verbalized understanding of dispositioninstructions.Patient able16:09 Patient left the ED.tm1Uomijzffkm:Fortunato Mark, RN RN vc0WlzmbgahAmi arthur RN RN go6PxoxgvyltAgatha chapa RN JOSE LUIS annvk7AcdaynpZeeshan Grover MD MD brKelly, Krista RN JOSE LUIS ne0TvdrlymkUsha Adams Sarah, RN RN bj7TzseqSantiago Rajan MD MD rd7Wkucjtnctxp: (The following items were deleted from the chart)01:16 04/08 22:33 Home Meds: Lexapro 10 mg Oral tablet 1 tab nightly; su9og021/2905:17 05:14 Patient reports history of anxiety, Bipolar Disorder, Depression,self sm8-mutilation, Other: BPD. Mental Health Admissions: several. pt was last at [facility]/01[facility]21and discharged 04/03 Current Outpatient Mental Health Services: Psychiatrist /Agency:[facility]. Living Environment: Family / Home Support: poor [facility] The patient is single. Detox / Rehab Admissions: None. CurrentOutptAlcohol or Substance Abuse S ervices: None. sm8 Name Value Range Interpretation Code Description Data Stephanie rce(s) Supporting Document(s) ID Date Data Source [id number] 04/08/2021 08:32:18 AM EDT [facility] Name Value Range Interpretation Code Description Data Stephanie rce(s) Supporting Document(s) ED Provider Note [facility] YLUBZb3dXeYHNzMo62/QZLorCPSby7JnUAgoZXn0IArrCCVtG8TgQPK8rT4hHNX1WVvJYcXmZvTyAMW9 m [file] == ID Date Data Source [id number] 04/08/2021 08:24:44 AM EDT [facility] Name Value Range Interpretation Code Description Data Stephanie rce(s) Supporting Document(s) Discharge Summary [facility] DFCIWm1yWtHIKbEs69/DXYvnJVNqo7SmFYcxUCk3PDtaUWNtE1QpUFD1dT1aMBB0VZbVRbQvQmDnMTM7 lbm [file] AgICAgICAgICAgICAgICAgICAgICAgICAgICAgICAgICAgICAgICAgICAgICAgICAgICAgICAgICAgIC AgICAgICAgICAgICAgICAgICAgICAgICAgICAgDQogICAgICAgICAgICAgICAgICAgICAgICAgICAgIC AgICAgICAgICAgICAgICAgICAgICAgICAgICAgICAg ICAgICAgICAgICAgICAgICAgICAgICAgICAgICAgICAgICAgICAgDQogICAgICAgICAgICAgICAgICAg ICAgICAgICAgICAgICAgICAgICAgICAgICAgICAgICAgICAgICAgICAgICAgICAgICAgICAgICAgICAg ICAgICAgICAgICAgICAgICAgICAgDQogICAgICAgIC AgICAgICAgICAgICAgICAgICAgICAgICAgICAgICAgICAgICAgICAgICAgICAgICAgICAgICAgICAgIC AgICAgICAgICAgICAgICAgICAgICAgICAgICAgICAgDQogICAgICAgICAgICAgICAgICAgICAgICAgIC AgICAgICAgICAgICAgICAgICAgICAgICAgICAgICAg ICAgICAgICAgICAgICAgICAgICAgICAgICAgICAgICAgICAgICAgICAgDQogICAgICAgICAgICAgICAg ICAgICAgICAgICAgICAgICAgICAgICAgICAgICAgICAgICAgICAgICAgICAgICAgICAgICAgICAgICAg ICAgICAgICAgICAgICAgICAgICAgICAgDQogICAgIC AgICAgICAgICAgICAgICAgICAgICAgICAgICAgICAgICAgICAgICAgICAgICAgICAgICAgICAgICAgIC AgICAgICAgICAgICAgICAgICAgICAgICAgICAgICAgICAgDQogICAgICAgICAgICAgICAgICAgICAgIC AgICAgICAgICAgICAgICAgICAgICAgICAgICAgICAg ICAgICAgICAgICAgICAgICAgICAgICAgICAgICAgICAgICAgICAgICAgICAgDQogICAgICAgICAgICAg ICAgICAgICAgICAgICAgICAgICAgICAgICAgICAgICAgICAgICAgICAgICAgICAgICAgICAgICAgICAg ICAgICAgICAgICAgICAgICAgICAgICAgICAgDQogIC AgICAgICAgICAgICAgICAgICAgICAgICAgICAgICAgICAgICAgICAgICAgICAgICAgICAgICAgICAgIC EwQRXpZVJsAGGdSOQlLFDyKJVaEJLbJWCcDSOzDRMrEEDkQBZpONo4K6wnCHNpEXXzDI9pXZs6Yz4+DQ tAQqHbZGA4jaHibQ4RQC4un4CkZAzpLWGue2FcVEc6 SM5GLODxZUfaCO3FZLdfci7UIXRsGRHbdJEZx2peNfEmWMK6TAZhJlxaXZ5QEEJqE5zdgqApDRVzCCQY BPurUBEVOCcnDNQIEPOvLDXkAeYwJrDmTTPdJIIpCUJAHKY8IDRtTkNmKTTgTJGeUcKfEXSJBKIjJYGk PsJhFKIhHOWkZlzeAVBFXTS4FQCkQkOkKBPwMSApPR 5AZHJfY890wfXoLBARWv7+CPjnqnOsGvyIEbLdTXSta5EuOYp3WT6NZWXdMajqe2ClFeDoGWUEUWcvSZ 9IPDN5UWBqYZDnVi6WMLUpC036wiOdZW7QJr2TZzGdPY3rqh9UYjMbHOBaJghVZdw0ATsrXR0BgLYuAN kMiPBbkXTnH0LdF4QqlTFfjCVnhNRNWE9xljCQNK2r V20aAUXUFEBhqYL3WiD1JkWyRmFvCJG7XuWhMS9yEMijJI0QPWV4TCpkJKUhSQVdZ4bMBfZaLKWdYRHd qRhaMO7KLbMqV9GkdvQwtZV1TpChSISSCj9+LNgyeoCyPeuKNhU7XCVst6QqJLv8UY5KGDNoOVpgJN4O HMDapY9sRBtiVP7IRpS9HBTbAVNLHbDeA71bnXSwQL i6Z6QhPhFrRFEiUdcvNCBsGZpsRjUqVPAeIkImLAziHV9+ID4+PZaqLE3PSKvfxdZzISBuGq4KRECvRD ImCT8rGZQlOZElB0V7cPwlMJKFJnYqV0uetpvgPD7eZDWkW656cGpvosNrYOPbWXNuXj4NAMXnGXB2SG PmoZCxSwGlBCWNXKkkNT0WrGCwTSZ7yY7lRNngCBLe CQOtY5uWTvVblStkBB60nWrnupXvzCQySRu+Kc5MUO7tn6RvZMz1gmVsEJrbVQV9WIydTZLoAMIxNIKs YEN7EHF0UZLCGeYdFAZmJFOqVAyiUIZwLCJvin8ODDGhYCC1TKskLSFlMCIvINJxLRnhKSMhEHqbDuCf MDDtIRYsHX9PVcRnDXOjBKLdMDaaNHWhEPHhgg7MIY SxSOLpOXBpBkLaSJDkCMGgZIteDWXbPOH4VMKkMAGaZWQoVE1OFrKlJAHjWUm2LQJxTELmBGJlux0LMG HmEMBbXlhdTCSjPSAnUFCyAMhyPCClSZCiKIE7KLJpNZVwCS9ZOlHmTRUcLXJeOWSyUKIcYYLvzq3WOX OiSVRmAhE1LfTqGELuHAXvMUwdYFZjOCDrKHy8KHOu WIHuIB1FItFvRUMmPXE3SqDlKHRiJZWcpc8MPRBfHPRxXcVuUsGgQNZoSYYdDBfbBFBxAHV7YhB7TIKq GJAcPL9PEqBmGADgPWi6QbHfTWQuGRBlpe9NMNIhYNWaXME8CUJoWHCgWRFeFCplZSAlMOFtKVA9FLMb MDQvJM2ORoErJBChFcYbYABlCTQgAMCuuj6CFTCkOT VeGIZ9OdIqANRcXUUcDLkzZVOrLSH3AoW4TQYvYGFjZC5OGfVlJBAyTdj7KZEiLMTyMGYlpr7SQQDwYS ZlRcRqRvSdXACnBGDfZIsfJPJaFLSzHgJ7NGDkZWSiWY3QLfMtVFDpUwD1BaNwRPWuAIKnpd1ACKMzLT DqFzE4TjVpOFXpHEZjXKlvUAKkHJPiYkFkESDgWAJj RT4BRmWiOQJjALG1LabbNYBkUFFafq7QYBUnXLO7HpB6UjJrRFDfNOSdPZsiZCZsSRNxGxX0WKQuRKDn GT7TCtBxHGQrIOC2QAyfRXWgPZSjks6FXKVxUPS6EZY3VLDcEPYbZHAhYGreXMUzPOO5GlH5XFEbSKTt HK7TPyVpYDDbCOC5TXSuKQQlVUYglp7FNFHnKMI6BM x1LZEsSYWdNWGtUXmmOHKsBQC0NNGmKWHxCTGgIU2QVjMaJNHkGSzvWNByMWJaHYOian0LDCPvGZW6Ak A7HpNzCAIbQPMxKIxyPWYyOOW1XwPxVVWeGZDhFH3FEwDuTLFcMPs0PSQvFSThDPMzuj0KDVEjYZJ0EB X8TiWrAAMfEPIyHFebJCGpSUB5UqPrKZIoZVSdTR6G YiQkWLTxUIx4ANrxQRYsHPUgcl4PPSQsIVI1ZUQhReHjKGHgZIAjAHagHPDpOBIjOPyiFQMvDGQkAU2X PgRsBCCwVBOvVFYdFVVkNYDcvd6XTTCcBYT5HBV9QhDkFALvTJRlXMgySNVkFISuLxZ1BFCxJTSpTD4R FpBoNXFtVHL7ABJsWFXyNPQopw2SPWQjQXW4Oaz1MV CyCVXaHHBoIXlkSAEoIIT8SLx4IPNnTKPsKX6KSmRfKHVtZzY1GPUnRXPvIOYqzi0OBSLqVRI9YKquLW MzVYBeROKxREngDEKtXGY3GTacCNEzDCDkUJ1UXuDgJPYdThKqGQCqDALsYXWkkw1YZJJfUVG4OCc2Vz VoVORhZTFyHOfqZIOjDKfhYeuiCGHxLWPaBZ6ZViAo NWMtCgC5EDDbRGQdWSLobh5HTMMzPGV2IMt8NvSnDVTvBUQdYGmhEFNzNZirHSd2VVLwAVXzCT0VMkJh KLCwEnVyBcIqSAFcZRZsls8NDVVcYBC2Ati2FBAhWKGfGUQkILkwCZUbIIufDVR9ROJtDSLnXH0SEnKc LGRaYiJfCfXjLDCeMFVmpb3PoSIutIkshd9CSPaEUg 5TbGvoIZF6QFfqXm4xvNN7NNSrWACNRu8AfvIzYKVgAZXPANiaDVAeCSMbLjE6SjFsGWUxYkLaTjf9JW X2KGC0PHvtQGd7NSruGmH1NNEfZordGkN7MDUzURWrKdmwWFFlSLr3VXLhDsXlIkV+OX0oEWu+Pg0Kc3 OciyR5yvItSGi7PaB1XQ5KQCFCA3QPVf== ID Date Data Source [id number] 04/08/2021 08:11:12 AM EDT [facility] Name Value Range Interpretation Code Description Data Stephanie rce(s) Supporting Document(s) Consultation [facility] SHBYQw2xAyBTApYg76/BNEkgROEkm6CcBAhtASw3PEivEBYbO6MjZXC6yI3qNSG3FRuSQjAtTqHhETI2 lbm [file] scKVwnsZ3/WcRJit9qCYzpAGssJwjIRNOAGYcL75FoVdZnPuacYb75KnA8pgNoZoNAzmtA5ebALh/EDGE BRUSHER [file] ICAgICAgICAgICAgICAgICAgICAgICAgICAgICAgICAgICAgICAgICAgICAgICAgICAgICAgICAgICAg ICAgICAgICAgICAgICAgICAgDQogICAgICAgICAgIC AgICAgICAgICAgICAgICAgICAgICAgICAgICAgICAgICAgICAgICAgICAgICAgICAgICAgICAgICAgIC AgICAgICAgICAgICAgICAgICAgICAgICAgICAgDQogICAgICAgICAgICAgICAgICAgICAgICAgICAgIC AgICAgICAgICAgICAgICAgICAgICAgICAgICAgICAg ICAgICAgICAgICAgICAgICAgICAgICAgICAgICAgICAgICAgICAgDQogICAgICAgICAgICAgICAgICAg ICAgICAgICAgICAgICAgICAgICAgICAgICAgICAgICAgICAgICAgICAgICAgICAgICAgICAgICAgICAg ICAgICAgICAgICAgICAgICAgICAgDQogICAgICAgIC AgICAgICAgICAgICAgICAgICAgICAgICAgICAgICAgICAgICAgICAgICAgICAgICAgICAgICAgICAgIC AgICAgICAgICAgICAgICAgICAgICAgICAgICAgICAgDQogICAgICAgICAgICAgICAgICAgICAgICAgIC AgICAgICAgICAgICAgICAgICAgICAgICAgICAgICAg ICAgICAgICAgICAgICAgICAgICAgICAgICAgICAgICAgICAgICAgICAgDQogICAgICAgICAgICAgICAg ICAgICAgICAgICAgICAgICAgICAgICAgICAgICAgICAgICAgICAgICAgICAgICAgICAgICAgICAgICAg ICAgICAgICAgICAgICAgICAgICAgICAgDQogICAgIC AgICAgICAgICAgICAgICAgICAgICAgICAgICAgICAgICAgICAgICAgICAgICAgICAgICAgICAgICAgIC AgICAgICAgICAgICAgICAgICAgICAgICAgICAgICAgICAgDQogICAgICAgICAgICAgICAgICAgICAgIC AgICAgICAgICAgICAgICAgICAgICAgICAgICAgICAg ICAgICAgICAgICAgICAgICAgICAgICAgICAgICAgICAgICAgICAgICAgICAgDQogICAgICAgICAgICAg ICAgICAgICAgICAgICAgICAgICAgICAgICAgICAgICAgICAgICAgICAgICAgICAgICAgICAgICAgICAg MNBnSVWnKRUwAGJuPXGtRUPuYSVdYXMgNUIcNIm1U0 yjHQMtGLWcXR7aSTz0Oo9+JPaEHqCzWFC4waAgqS0GXJ2hu6CiQYyiFDWgy7LxMBj8RZ3GIIKgFRwkQD 6TLNffti3ZFFZaDHTxuONBv2ayHuUdFHJ1YNVmIzogMV9CVTCrB4ilrbEmCEWuYYXXENcyXZPGCUubWI BYJSGlSQJjXfHzBqYyHQVjINLlMCBCQBO4QCSbRmDd PTBsZDWlXzIsRSEVEHBqXQMeAyGxISXyEAXxFcemICVKOL8TGpGgZ8QgoD83LGInPPz+Uc3ALS4wv1Qe ONs8ByCeSB6dze7GAUkGKlQoM4ZeckS4LAY1FZDxBd0EEQTjGHZasTN6LTHfGQCOXdGfH1KwaK35YRTU Cj4+RHftwhQeHniPPjG4MMInr7DaSQz4IJ4GHFTiOE s3nNZtU76sa1UuyOElVexzL9ofcOP4v6OfXDThZoIWSS5wJZ4bZCSXOhHasQH0QrG5CzRtChPpLXF6BW vrML6xOUpxCB3ONWS0NSfwZIAxJYLlY1qKOqZtBEAuLYTrkHwgVP6ERiOdH2OuqzZkmKR1KpBfHDYVKz 4+HMnbxfLnKqxTRoC4RRRme1UpCFb2UU3SKIVzLAux WS8EXRArqX5tAKdgUB4JXwJ6OIXbTFJCCmHhN87imBJeBHh9O2NsHeOwBTXiSdknVJNzYHyxGhAxHXQo WyBdDQogID4+ID4+UJuwLN1NEBqufuGuZWRvCz1CNRFiZVUwWB8bDUAjBJBtC9P3jIjxCYWXIjOwJ8mc lrvxFI5bNLYmD281cXwqmtBeNKMlGBGoIk4VGIYcXI N2TYKkuGUkIlVmRZZPOFkeKK5BiGIqHFS9nV0zAUyhTPDvDJVeY8oOOgOecBpdWU43lMkwgmXbzNLiNH o+Th9WNA1ns3UoMMy9ubFbMPczJDE4FDsuRCWvUBNiGTRqOUB9WRR1KFAJWvLmSTLnOIRjSPbtRUWtBM Jobo8AUYIiKJZ2GYTfEGFpXQZvPKGzFUdpSSMdAVk4 NIC4DUKeCYVuWQ3TYgLmEAUzAANwZYxxEGBjTRWewh4KJSLrTAUqRjmhWkSdVDPqNVDbGIngRHPkXLG7 PAQ8KIJbOSUmRH6JKnToYVTkBAx2VOAqWXCtDRDebb1JSGWzMRXzHjsoOWFcTEOeRRRcGFuvSKXoEEHv JNt0FVPmIJBsTQ0UHdNcSUWqTIZzEYEiXVJsCGWkyg 6RVAUjTUDyHEM7CDIzBDDyXUToJHmkCUFtCJF9FqO4OBCdWDRhZD4UMqOxIRQkZFUdAGSvGDPwCRXeki 5OETVjZTYwHhEkYnRxKUSoJTKnKNskUZLcEZU4SwM7PBFvHWYiZU5CQdCoKAEbTMe2MfFhFDJwZZJqrg 5DIEKrFJJqHKs9KeUsGBYuMEStVRbbZOBhJNFkSLv9 YJIoVKAwIU5IOxQrYGScAyV4UqIlKREzDRKxrn0CRJVzGLVmXTN7IrErMQMbIDUgNJnyPEFgRBK9LmE4 DIVoIKKuJB0EMoCwBAJgFnh8AtFdEWItWJDkji0CQOSvHOPtUCvaOSTkLTUbOGIeCBadTYQqLRAkECT9 PZUsHSWrPY6QTpSbWSThBxYeScdyRMVmTRNuwo4RRT BfOCLsLhCjNQLoTCEfYZFzODnbPIKoJEF3Oxe3CCJgUGIrHS1TBwMhEBQpDal3QEJaFOQwDYWiax3EZQ ZmTTNvNAv1WfPbVLMiTYNlATyjVTLhOTN1LOMlXMPiSQEpOT5YQrSwBFUeHkdzNqHpVKWtCBJzoj8CXE GjGNQ2NVT5ObQrGNAyORPxJEclWEGhJQGpIMt7MNBn VPChLF5LPnXiOHYkNGL7LUEwLOBbNWAbzy7BQHNpNBD0GFK6AqLtMIGvJZZuDUrlHXZlWLLaFXW7MLAk BWBoDJ7EGvFuTRYkMWHmVlLvLFSsEJOokq5CMHQuSMR3Zzi3OZXiLJDpZDLdVXzjZLEfVHUzNYneXEZz EIQeDA2ZGgDpEFMzLHIfTDIrBFHeSIGgqw2KZYWvUB Z6FTV1OHRfHKBiGEUqMWngGUNsULZ7GBC6BVRtYWOgHP2VYnSkJUSsYLV1MgybHPMlGJSzme0PSJQgXN H8ZDUcNNJtHHHbMWArAXltRKRbTIR0WQM1OSLoWVAsUS1PBuLaQBVmSgm2CXCjLMPnYIXvjq5JKEDrTD O8BACoIAGqZMSeVMPvPRmnXTSzXRmiLOftBWNnTDMb XH8HHkOmOAMoNpRqLyFjTGQnCKEcoe4SEFSgSLX3MAX5IURvNFOkHOYnORghJNVvUDl6KWf8VNYjRVNa KL9ENjPdXBLoZzGkAcQrXGEgISGtmt9KSASgTNN0OnN1BfNcONTjMLZzCTmpGGBtBGq9DMh7FDPlHWKl OF2WXqMtYHOlXeA8VlSoRIZqOILuwo9UWTAnJJU1Ye t3WBRjGIOjLYWaCGfbHPXxYSr4ION2EOPpOIRbQW8IZtAjOHWcKHE6CgXdOSCaLXDzvl0QQIMtZFA5TG g1BiKnQYKbAMTjDDnzADLuDYu8WYM9BVMmPTBrUR7YNiDpLKZtVUH1DTvjPLNkAPSeab6AWUXlPXH7Xf GdAPEnDSDkFUKaSKacJMLpAJx1OhO1IWSpAOOpCT2O IkAhHQPqMTq7EFhvOKDxBNCzwm3BOFKwEUA0Xwt2MOHsZXIfOTWyHJr7yuGznBFiGBh4ZP4ZR9AplrLa VnMFKf4Kj867CQE3GENdOa4NU1unHo2aNBQfBYILEh8GCFi5LTXbDSK8ANS2GNFtJbBgMjbvUGD1VZp8 MTVlODRmZjE+KXt0YVZ8GYXtJew3GcCtPlMnDZRgYZ b6HZOyCGR9ETZbOA7jGAIGEl8+MEucmABqjMklVLJIEiy1LBmkIRotMASBFl2S ID Date Data Source [id number] 04/07/2021 10:13:17 AM EDT [facility] Name Value Range Interpretation Code Description Data Stephanie rce(s) Supporting Document(s) Consultation [facility] GTYYYe1uEhNTCgTk30/EKLjaXPCyn5OjYNozTUu3RFcaMXZjD8FsOTV1kC5iLYB3EJpHBeBvGsDyZBG7 lbm [file] ZTG0MpQ0GHP0HBq2H5LuFPCbSDAvSmXgQT7RYw7RIhR9CXP5wRLdAi5VPxM0HBiMKrOaVD2UUTn= ID Date Data Source [id number] 04/07/2021 08:19:33 AM EDT [facility] Name Value Range Interpretation Code Description Data Stephanie rce(s) Supporting Document(s) History and Physical [facility] DMJCQw5jMpIBBuMj22/RFIycYNPik0DuJIwsPHp5CIcgBQVjA4UmWSX3aE4mZVQ8DVqKCgAjDyWyVPA7 lbm ThStoJCiPdCHTqYgeCRaGtASatHvvzyYAxHJ6LdFW4OQDoU44lXZYfCCSeG3WvZEU2IUn+Zj2AZQQdwK VsWL9UOovA9F9os5bNJq3+wP2HRQ/otUFic/m2pL+zjxK9fEVUExLWtMcIrg62srBagmgxb5jcasT3ED VT+zCBFrljgI6Iz5FrdRrzlA+SUNh657w7MqIM37Zr 3+oyCC31QpU//KlbAbb93ZIQU1PYizM2Eb1IP7P/A/3qO11mqT0TbjyuhwXXTueiqrjLf7AgLoZXYon/ qsEvSodhNpKBdwWodQH+TcU0Tun4gDFSMApgTeXZJPSVMfKIvDfeyY7NHbdU58ZpM5sBYY9iMZCxWM/7 fC549TJMPGagcYy0v2m5FAZLwfKvlJWMJYTYnqBXN/ 2Yw92B+nlj/xUkvLcMIY5fumYs9uACI1dPTaAygFoDxEdBnsyi8+uvcGu/KeadNDB+bD7zfnmWmxs8cp vfp6p82C2FdNq+QElrFrBCqisSKAu0jF1Q0QCLm/0z5JqQHoAcUQztL0SGdNv7zC6hkPraw+TKzm2REK XQPxQnazTt1vq2lMshFjukhTsKiLjQ5HlC79JgduW0 x00cTVYsB2GLKh1SA7gYRkfLiUlRfU/+V28iJUglzzS/Hk+HV0L6+QXjwpfBJuEjbFhbNreQ6hga5CWP Fy0FJ81t5LeQk3blFEKklJ03PaKs1RsN12w7AbQ5RC43JiZ5zx9s/nEgomIO48haVLnmgmqxvlW/c/L+ Q/es131/lrtltU7nuQU2njpyyTpEDnIvD9vYkh5fAq krkSA1l+z/uio2v2wSzYeHsYrluU5VSdwbx4VaXrv7YmEUdef8+InHiMgRuqgkYzyalf63tYRCYR3Bts Y9AbK1tcFuxMcmyMD9L20CWLGauOEFILHzLV5Y1skKXLJN3+O7gEVnFMNBFbx+KNaM12tdcr5qrdxwQY NiZ7dede8m5k4SdwcdzxSnylN4dyiiVaMZdhNqskd4 [file] ICAgICAgICAgICAgICAgICAgICAgICAgICAgICAgICAgICAgICAgICAgICAgICAgICAgICAgICAgICAg ICAgICAgICAgICAgICAgICAgICAgICAgICAgICAgICAgICAgICANCiAgICAgICAgICAgICAgICAgICAg ICAgICAgICAgICAgICAgICAgICAgICAgICAgICAgIC AgICAgICAgICAgICAgICAgICAgICAgICAgICAgICAgICAgICAgICAgICAgICAgICANCiAgICAgICAgIC AgICAgICAgICAgICAgICAgICAgICAgICAgICAgICAgICAgICAgICAgICAgICAgICAgICAgICAgICAgIC AgICAgICAgICAgICAgICAgICAgICAgICAgICAgICAN CiAgICAgICAgICAgICAgICAgICAgICAgICAgICAgICAgICAgICAgICAgICAgICAgICAgICAgICAgICAg ICAgICAgICAgICAgICAgICAgICAgICAgICAgICAgICAgICAgICAgICANCiAgICAgICAgICAgICAgICAg ICAgICAgICAgICAgICAgICAgICAgICAgICAgICAgIC AgICAgICAgICAgICAgICAgICAgICAgICAgICAgICAgICAgICAgICAgICAgICAgICAgICANCiAgICAgIC AgICAgICAgICAgICAgICAgICAgICAgICAgICAgICAgICAgICAgICAgICAgICAgICAgICAgICAgICAgIC AgICAgICAgICAgICAgICAgICAgICAgICAgICAgICAg ICANCiAgICAgICAgICAgICAgICAgICAgICAgICAgICAgICAgICAgICAgICAgICAgICAgICAgICAgICAg ICAgICAgICAgICAgICAgICAgICAgICAgICAgICAgICAgICAgICAgICAgICANCiAgICAgICAgICAgICAg ICAgICAgICAgICAgICAgICAgICAgICAgICAgICAgIC AgICAgICAgICAgICAgICAgICAgICAgICAgICAgICAgICAgICAgICAgICAgICAgICAgICAgICANCiAgIC AgICAgICAgICAgICAgICAgICAgICAgICAgICAgICAgICAgICAgICAgICAgICAgICAgICAgICAgICAgIC AgICAgICAgICAgICAgICAgICAgICAgICAgICAgICAg ICAgICANCiAgICAgICAgICAgICAgICAgICAgICAgICAgICAgICAgICAgICAgICAgICAgICAgICAgICAg ICAgICAgICAgICAgICAgICAgICAgICAgICAgICAgICAgICAgICAgICAgICAgICANCjw/zTMuA5ldpBTn ybR2F3bxFm1FXa9TEL6lo6SbQSZiESdzkzDvYqsHCc LgOXKuVjtVNwq1OVweBB7OjGHlQ5DxG1XvTKkhSP7GEHMwAGFxzWExXWStPZJkJtT3TWRdHExsGI1PiS GaVJosHGQsEWZiAkQwLLPyDTOeTXHnDWGbLGCKEMNzIXPcJdBgEVIeDZDkPTueOBCHCAN1NWIkChUjUK SuSTTrBqQcOLPBEYK4BRMqQuJwFcSdWHRnSZ5YQRYs Z424flTlIIOWEo9+RUieprWfJruXJaRwRSJky0YbJDj4TQ1YICAnUgmcf0EfWvKyNOGOQFgfCL3SWPT4 GRR8JIHaTz4IHWFgB813npXfVV2ZDe8SCzCmSJ3wal1IBoAqNOBoEiqOJll7BYdxAS5LwFStSXeYUfIh PjadE2mtdRP8k7HmKUJeZbXCUU9vHL9oDSTFNpMifF Z2JaK4IjZxJvYbTBO9EjyzJA5bYDdvSI8WVIG2XFtsVKSnBQEcG7vRCiUhSHBcLGGwbQmwEZ0ZGwEqT2 PxytUmqMJ4QyPlYFEZAa9+WMuoctTfQkfLUxB1PYQah8VzRWu8YB9DDBJxYQamHW0JHMFdaQ3jLKkoUL 6ADiH6SFHxUDOLKiBqY12ouZUoMFj2M3VfUtBwJELw RmlsZXMgPDwvTmFtZXMgWyBdDQogID4+ID4+OUvmBD2HOEypzbAyGZGnBf1DTQPlZMDyMQ2aDOMrRMCq T5X3oHvkUDXTTpQpO4uilohuYY3xESBjP952mKuuutUpQTVuBNAcBm0ZVIBdBLR6GEWweMEfQyLkUUAJ QZsfPL7PlAHgCCV7nF3pBEjxGXGpTNNlY7dBYrSwiH yrXM41mYgczdAthCYgUDx+Rq1YVT5ip7NbLMq6zvSvRDjpMLV4ZYuuRAVkJCZcDDXnYKB7VVK5WFGUGe FoEIKgBTMyGPnhLNWxOMBkiv0JCACfJYJ3FzdzMwBjRJOmHTYpWXlhTSOdWEl7HUO7TJUvPHTyMN0EZl YcMXCmKEVwDOkiRQObDILyrk7KRWSzXVEfVro1AzYm BGCmBSXhCTojUUTaWER4YLcyUKNiNTXiCU2OJqThTIBiPNd1BCRoYDVtOYEmyi6ABAVqCLEcPzzvRROv DQYePGJhEPhnMJWvQFXgEgTxRKKxLZUcIB5AViEyMQNsUOG5OVKiPOIdAOZnoj0HDSGeBYSlNLF9RTYy HOMkLZNvLWkaBDSqGCK1XaC5ENEzOVUcRT4WSzPqDS FaBIstDufsIQZfGFCqlf8HBMVnGXDtDwM3MVFpXBHoJVMnJTygVFUwEAP4Lej4AOTgZSGpSO6YMnDrMI RsDXs7ZWByTHLcTUHbkg8JOQSnUAJwQzZlHIBcDAXtGCNyPCicLTPzMWNuKpJsIPBbTNIkAT2QWtQvZC HnToR6SZDfAHHqXBZngl2XVFCyUGNrWPN2ThVnTGIv NMSlWGimFOSrBAH8ZAC0VCJeBYZtGM7FLuPdCRJuBmdnXQIiQHVgLDXixh1QZWNdIAZpBuU6DYRbFSZz JHAyPMkrDTScYWZrMGFoECIlJTFyYM1CGjSxOXHcVsW6WEXwVLQzGLUxaq2ERDVhCKQlZnUtMPJxHLMa JNKhEAzeUKIqPHE8Dmd8HQIvRINrFA4JJzGkZBJeDx t1YYXoBXXhHXXtov4YLPRvDXK0RIc8PLRnXZVsPCNbHPfqVFCnIYTwLJBpAOEmYDYsEU8GVzRfFAYuRS KlSJYtEQCyBINbjt3ZJUPjJBL9EbUhZmZyXFTdSXSbQGhdGIEkRNTxQZJ8XHWlZBYlUC7XXkPtRPQgZB Q1IYMdVVAlUWUreq8PWWTtXAA4LlH0LjIqYRYgHBPu JMtpVQCeZSRyBxPmWRQmGTBjKC3CQtGlFDGpOPC0KfYpRJQfBPGstv9AZMTgOQR3TRu2PlEfEZQdKNMn THegPOWuCBO9TOAvNAHxWHFxCP9MKhBxOHGnEBEaIOElTGPqKCVsyy4RHIWbMDF5VxK4JiMpFTGiSIFi BHdjFGWdXJG7ZZGvELPgEPTtYG2ENwJiOZNxGKX9GW WbJRWbUXNecs7JRWSlZMU5PIG2XHThIVDbKJZyHQngQQTpVHS2ETNkNPEwPCMfLQ4BCeUmONTiMGm2Xd EzTVVsSQZpuu4BVXPoXXF9SZu0FBDzWLWaFJWcTFrjCBQhKES1CUE8FUBaDYYkXF4OWjJiUTTrPrO5Qn UlEXBuAAGubv9UYQAtEOS8VDV4WEVaRRWtYKPrHXhp XWRgAGO3LSSoJKXzYBJrYW8EGlLdABQaTnL1SKRtNTHpICYivf5FBZQoBOR2ZAl8JYCqLBErWFGhNEfq HZDoFZJ5KHL2UZTgJDSdVU6KYaWoPQAxIlMlYTViZFQaBUHavt2CRMVqZEU5QIFiZUCfLVDlVOMjRPjn EPXoRSc3Nhc7MAYmATHzEH4GOcBaDOVqOskwCYHhXG GeBOQsov4QFRFgIFT7KcRaCYDdITHnXGOwPHmxUCLpOPg3LCR3OBTrDLQnLL2PZjRzCJTrFdw3CYIcJF LvICZckj0QCOYkNTX3DJP7EbIhTAEcKWEwHGwaWVVtINp0MyYfTOBtKJSkSA4YYtMyWNYgAgl5SMZiMH LxQVEyhf3RKVQbYFC1UQgqXkPjDFPlNYFkYQr9hpZl fHKxTOf6SC5EX7BnvgIfTmMKJk5Cx234JRX0BWJwSs6YW2hqCc7cJZBxJZARUx9RXPx8GyOkXDFcPsBf AkSsPILaJpc0GpiwXBK3VrU4EkL1SYX+MXv7M6Z3QlOlNUYxZ1R3YRKoAhnrNlZ3OqpkBSofJjRtDj2w XSANCj4+WFjznUWlnGnmPVQJZxefSVxkPPrlTOZTMr1Z ID Date Data Source [id number] 04/05/2021 08:52:29 AM EDT [facility] Name Value Range Interpretation Code Description Data Stephanie rce(s) Supporting Document(s) [facility] IWEANx0bToJQHzLtq4XwZpLsGTUuUO8jjme4O9V2nRRwX5PlpOIib6hbA8CjR3IgDPDgJAKSPO3ZfHWr jb2 [file] 9fmJ/LjeOJaozy8EoqOh+7B9dyo0X44bV8c+Brionna/K5rGg2RrlRaTmONSwabDM/tGBoQXN0mnsLa66y0d Y/2tsd1HAqdYuetsnVQqIt6gnIA13d8xS11h7h4Tbd Wmbd5YxvAvq3yr7k5WaWMntXMhF4Rn0CioSM5BjY309kemB+b0+Dw/fP8M4pY4aa/a03pA35ChiBuUqM mf60XPcjiVw7fSyn/RtrX8JZ7ip7Z9YI4lY9TjDu95cd18AbWE7edu5UzR8P3X/VrlVtmLwJf4eZjElR FkJ3rFmJZnm9wQX2LrpewQpnmZohIQQ+K9cHd9TT9H q1t3yiMkSu9TrBsbtcnY5PuFQCfrEn19VSaLYVsQHcJzuXS+M1gfrd944q6pXGW5khB+T3JxkcICvd3T yCYYBBr35cIeE2m4oqxwlDUrDsR6j+i70/d9bPZRF/e3iPBZqkZ9E6WfNEUM8g5vL5goNmu1Qe+maría/O [file] N4h6QBDaVZazTS5lmaKoHNVnTziqDx4ivTE0WSDbOohSSa6Uq3PrlqA7glWhFuH8IQP5AwJdIE7D ID Date Data Source [id number] 04/05/2021 08:52:16 AM EDT [facility] Name Value Range Interpretation Code Description Data Stephanie rce(s) Supporting Document(s) [facility] TKUEFf7xIvINBmAcn8QfKoPxCPIeJC6oyws3A6I9fKBtY3NswTIxg4efJ9CpK0YeWZDjRMZXTR0VaPAf jb2 [file] /u7//bm35g9Dh0d4iswkUij4/X506i+tj8/ YTO2xfnBwv+QdqKOfP+moHPrvPVvCfP+pjlw1HOQ0syUV9U4X9rGvDaJmyh13/k8fdOx0mnbXS18a/jK eai+p+jh46F3MsUsW5o0dfvjeysCu58/L1BqYqKz/I4wtcxkcUHopIvyq3q1eqY/0f4xt454n4p8w/u9 r3O/hxXM56z/emrl96BquC7O3HoVC8MjlkluQ8s4ig nfer/9SzsZVog20ZM/K53qv/U76HrQ/bOrmm0oMQ8t2gNsvRxMI6Q2+ejro5Z60iBZ6ZcBw8/1ib84J6 gVhv3tgm3zxsEkEvWb78uKqC/Hf9pwEA3Ok3/JN4mUTzCrxuUglcNIUXr5DR6YYZx/J12fdP+idNbXH2 /Wt3/TlyE1ibBT+vBqkz0Mt5j57zLa426uZY/8zvri zljKH8KuaY/p+qHxa43Buc9lgEJtnr+pwo72sYvjNwgr/Y9ar90JgISUoD/MFUwk71HMM861bd8t556G wz/Th66luj4Y/bZGXbNYlihm14/1qVfECAVA11DXkcxC9Sj6MqJ/sR4q8313n39XdD+uT/t+M82ht643 44p8arCXu54/ja7b7/qo+89Dv/N63eO/67Ou++969p [file] xbRe0rJsPgJVNOG9Rxf5VvUNEoGECFPq3+MqQ6UWS8iUIoVug4RLDjOKnkARSHMx== ID Date Data Source [id number] [facility] Code Description Data Stephanie rce(s) Supporting Document(s) Color of Urine [facility] Clarity of Urine [facility] Specific gravity of Urine by Refractometry automated 1.016 1.003 -1.030 [facility] pH of Urine by Automated test strip 6.0 5.0-8.0 [facility] Protein [Mass/volume] in Urine by Automated test strip Neg [facility] Glucose [Mass/volume] in Urine by Automated test strip Neg [facility] Ketones [Mass/volume] in Urine by Automated test strip Neg [facility] Bilirubin.total [Presence] in Urine by Automated test strip Negative [facility] Hemoglobin [Presence] in Urine by Automated test strip Neg [facility] Leukocyte esterase [Presence] in Urine by Automated test strip Negative [facility] Nitrite [Presence] in Urine by Automated test strip Negati [facility] Leukocytes [#/area] in Urine sediment by Automated count 2 /HPF 0 -5 [facility] Erythrocytes [#/area] in Urine sediment by Automated count 0-3 [facility] Bacteria [#/area] in Urine sediment by Automated count Non e [facility] Epithelial cells.squamous [#/area] in Urine sediment by Auto mated count 4 /HPF None [facility] Mucus [#/area] in Urine sediment by Microscopy low power field None [facility] ID Date Data Source [id number] 04/05/2021 02:27:17 AM [facility] Name Value Range Interpretation Code Description Data Stephanie rce(s) Supporting Document(s) Amphetamine [Presence] in Urine by Screen method Negative [facility] Benzodiazepines [Presence] in Urine by Screen method Negat shea [facility] Cannabinoids [Presence] in Urine by Screen method Negative [facility] Benzoylecgonine [Presence] in Urine by Screen method Negat shea [facility] Methadone [Presence] in Urine by Screen method Negative [facility] Opiates [Presence] in Urine by Screen method Negative [facility] Oxycodone [Presence] in Urine by Screen method Negative [facility] Fentanyl+Norfentanyl [Presence] in Urine by Screen method Negative [facility] Service comment [facility] Results below the indicated cutoff (ng/m L), are reported as"Negative." Note: for medical purposes only; not valid for legalor employment testing. ID Date Data Source [id number] 04/05/2021 01:30:00 AM [facility]T [facility] Name Value Range Interpretation Code Description Data Stephanie rce(s) Supporting Document(s) SARS-CoV-2 RNA 2019 nCoV Real-Time RT-PCR: NOT DETECTED [facility] This lab was ordered by [facility] and reported by [facility]. ID Date Data Source [id number] 04/05/2021 09:15:34 AM T [facility] Name Value Range Interpretation Code Description Data Stephanie rce(s) Supporting Document(s) Hemoglobin A1c/Hemoglobin.total in Blood by HPLC 4.7 % 4.0-6.0 [facility] (NOTE)<5.7% Average risk of diabetes (ADA)5.7-6.4% Increased risk of diabetes(ADA)>/= 6.5% Diagnostic for diabetes(ADA) Glucose mean value [Mass/volume] in Blood Estimated fr om glycated hemoglobin 88 mg/dL <126 [facility] ID Date Data Source [id number] 04/05/2021 01:49:12 AM [facility] Name Value Range Interpretation Code Description Data Stephanie rce(s) Supporting Document(s) Leukocytes [#/volume] in Blood by Automated count 7.5 10*3/uL 4.5-13 [facility] Erythrocytes [#/volume] in Blood by Automated count 4.28 10*6/uL 4.1- 5.3 [facility] Hemoglobin [Mass/volume] in Blood 12.6 g/dL 11.5-15.5 [facility] Hematocrit [Volume Fraction] of Blood by Automated count 37.6 % 3 6-45 [facility] Erythrocyte mean corpuscular volume [Entitic volume] by Auto mated count 87.8 fL 80-96 [facility] Erythrocyte mean corpuscular hemoglobin [Entitic mass] by Automated count 29.5 pg 27-33 [facility] Erythrocyte mean corpuscular hemoglobin concentration [Mass/volume] by Automated count 33.5 g/dL 32.0-36.0 [facility] distribution width [Ratio] by Automated count 12.9 % 11.5-14.5 [facility] Platelets [#/volume] in Blood by Automated count 245 10*3/uL 150-400 [facility] Differential cell count method - Blood [facility] Neutrophils/100 leukocytes in Blood by Automated count 55 % [facility] Lymphocytes/100 leukocytes in Blood by Automated count 36 % [facility] Monocytes/100 leukocytes in Blood by Automated count 7 % [facility] Eosinophils/100 leukocytes in Blood by Automated count 2 % [facility] Basophils/100 leukocytes in Blood by Automated count 0 % [facility] Neutrophils [#/volume] in Blood by Automated count 4.13 10*3/uL 1.8-7 .0 [facility] Lymphocytes [#/volume] in Blood by Automated count 2.70 10*3/uL 1.2-4 .0 [facility] Monocytes [#/volume] in Blood by Automated count 0.51 10*3/uL 0-0.8 [facility] Eosinophils [#/volume] in Blood by Automated count 0.11 10*3/uL 0-0.5 [facility] Basophils [#/volume] in Blood by Automated count 0.01 10*3/uL 0-0.2 [facility] Nucleated erythrocytes/100 leukocytes [Ratio] in Blood by Automated count 0 /100{WBCs} 0-0 [facility] ID Date Data Source [id number] 04/05/2021 01:58:23 AM [facility] Value Range Interpretation Code Description Data Stephanie rce(s) Supporting Document(s) Prothrombin time (PT) 13.6 s 11.6-14.0 [facility] INR in Platelet poor plasma by Coagulation assay 1.09 [facility] Routine intensity oral anticoagulation I NR is typically 2.0-3.0. Target INR must be clinically individualized. ID Date Data Source [id number] 04/05/2021 02:22:57 AM [facility] Value Range Interpretation Code Description Data Stephanie rce(s) Supporting Document(s) Acetaminophen [Mass/volume] in Serum or Plasma 10.0-30.0 L [facility] ID Date Data Source [id number] 04/05/2021 02:22:57 AM [facility] Name Value Range Interpretation Code Description Data Stephanie rce(s) Supporting Document(s) Thyrotropin [Units/volume] in Serum or Plasma 2.870 u[IU]/mL 0.270-4. 200 [facility] ID Date Data Source [id number] 04/05/2021 02:22:57 AM [facility] Name Value Range Interpretation Code Description Data Stephanie rce(s) Supporting Document(s) Albumin [Mass/volume] in Serum or Plasma by Bromocresol green (BCG) dye binding method 4.2 g/dL 3.5-5.2 [facility] Bilirubin.total [Mass/volume] in Serum or Plasma 0.2 mg/dL <1.2 [facility] Calcium [Mass/volume] in Serum or Plasma 8.8 mg/dL 8.6-10.0 [facility] Chloride [Moles/volume] in Serum or Plasma 107 mmol/L 98-107 [facility] Creatinine [Mass/volume] in Serum or Plasma 0.59 mg/dL 0.50-0.90 [facility] Glucose [Mass/volume] in Serum or Plasma 91 mg/dL 70-140 [facility] Alkaline phosphatase [Enzymatic activity/volume] in Serum or Plasma 113 U/L 35-104 H [facility] Potassium [Moles/volume] in Serum or Plasma 4.0 mmol/L 3.4-5.1 [facility] Protein [Mass/volume] in Serum or Plasma 7.3 g/dL 6.4-8.3 [facility] Sodium [Moles/volume] in Serum or Plasma 140 mmol/L 136-145 [facility] Aspartate aminotransferase [Enzymatic activity/volume] in Serum or Plasma 29 U/L <32 [facility] Urea nitrogen [Mass/volume] in Serum or Plasma 13 mg/dL 6-20 [facility] Osmolality of Serum or Plasma by calculation 290 mosm/kg 275-300 [facility] Creatinine/Urea nitrogen [Mass Ratio] in Serum or Plasma 22 [facility] Bicarbonate [Moles/volume] in Serum 23 mmol/L 22-29 [facility] Alanine aminotransferase [Enzymatic activity/volume] in Seru m or Plasma 40 U/L <33 H [facility] Anion gap 3 in Serum or Plasma 10 mmol/L 8-15 [facility] Glomerular filtration rate/1.73 sq M pre dicted among non-blacks [Volume Rate/Area] in Serum or Plasma by Creatinine-based formula (MDRD) >6 0 [facility] Glomerular filtration rate/1.73 sq M pre dicted among blacks [Volume Rate/Area] in Serum or Plasma by Creatinine-based formula (MDRD) >60 [facility] ID Date Data Source [id number] 04/05/2021 02:22:57 AM [facility] Value Range Interpretation Code Description Data Stephanie rce(s) Supporting Document(s) Ethanol [Mass/volume] in Serum or Plasma Negative [facility] ID Date Data Source [id number] 04/05/2021 02:22:57 AM [facility] Value Range Interpretation Code Description Data Stephanie rce(s) Supporting Document(s) Salicylates [Mass/volume] in Serum or Plasma 3.0-30.0 L [facility] ID Date Data Source [id number] 04/05/2021 08:42:04 AM [facility] Value Range Interpretation Code Description Data Stephanie rce(s) Supporting Document(s) Choriogonadotropin.beta subunit [Moles/volume] in Serum or Plasma <5 [facility] ID Date Data Source [id number] 04/05/2021 08:53:54 AM [facility] Value Range Interpretation Code Description Data Stephanie rce(s) Supporting Document(s) Cholesterol [Mass/volume] in Serum or Plasma 155 mg/dL <200 [facility] Triglyceride [Mass/volume] in Serum or Plasma 118 mg/dL <150 [facility] Cholesterol in HDL [Mass/volume] in Serum or Plasma 40 mg/dL >50 L [facility] Cholesterol in LDL [Mass/volume] in Serum or Plasma by calcu lation 91 mg/dL <100 [facility] Cholesterol in VLDL [Mass/volume] in Serum or Plasma by calc ulation 24 mg/dl 16-42 [facility] Cholesterol non HDL [Mass/volume] in Serum or Plasma 115 mg/dL <130 [facility] ID Date Data Source [id number] 04/05/2021 02:51:14 AM EDT [facility] Service Cmnt XXX-Imp : NoneRespiratory P CR Panel : PCR ResultsMicroorganism XXX Cult : See Labs Tab for 2019 nCoV RT-PCR resultsHAdV DNA QI CORDELL+non-probe : Not DetectedHCoV [id number] Nph QI CORDELL+non-probe : Not DetectedHCoV [id number] Nph QI CORDELL+non-probe : Not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 health evaluation as above. [facility] disposition. Patient is medically [...] name: ETOH; Complete Time: 00::38 Order name: Gaqnmonxp914/1923:38 Order name: Salicylate Level; Complete Time: 00::38 [...] Order name: Medically Cleared for Eval by-Psychosocial, Prep Manager (.PSA):02 Order name: Mental Health Level 4; Complete Time: 05:0 1mb4Ldqavovdd Medications:03/2003:48 Drug: OLANZapine 10 mg [olanzapine 10 mg tablet (1 tabs)] Route: PO;jw504:30 Follow up: Response: No adverse reaction; No change in qjgycxosvgv540:08 Drug: Geodon 20 mg [ziprasidone 20 mg/mL (final concentration)intramuscular solution jw5(1 mL)] Route: IM; Site: left deltoid;07:13 Follow up: Response: No adverse bxmioludvq499/2100:00 Drug: Geodon 20 mg [ziprasidone 20 mg/mL (final concentration)intramuscular solution tp2(1 mL)] Route: IM; Site: left deltoid;00:30 Follow up: Response: No adverse uddgurensr743:00 Drug: LORazepam 2 mg [lorazepam 2 mg/mL injection solution (1 mL)] Route:IM; Site: yu8ygvkg deltoid;00:30 Follow up: Response: No adverse ayoxtzgnnl669:00 Drug: diphenhydrAMINE 50 mg [diphenhydramine 50 mg/mL injection solution(1 mL)] Route: tp2IM; Site: right deltoid;00:30 Follow up: Response: No adverse weqvjydhcy582:22 Drug: LORazepam 2 mg [lorazepam 2 mg/mL injection solution (1 mL)] Route:IM; Site: jlright vastus lateralis;10:33 Follow up: Response: Anxiety :23 Drug: diphenhydrAMINE 50 mg [diphenhydramine 50 mg/mL injection solution(1 mL)] Route: jlIM; Site: right vastus lateralis;10:33 Follow up: Response: Anxiety wnkcnezapew418:24 Drug: Geodon 20 mg [ziprasidone 20 mg/mL (final concentration)intramuscular solution jl(1 mL)] Route: IM; Site: right vastus lateralis;10:33 Follow up: Response: Anxiety pruznplhmch8Icfudogpfg:Dispatcher [employer] Kylie Fishman MD MD seHowland, Todd, MD MD ta9XgimfFortunato humphrey RN RN yx1HqWpfrxBertha lundberg RN RN jlPutBreonna yu RN RN sc0XpksrzuzAmi dang RN ef1 Name Value Range Interpretation Code Description Data Stephanie rce(s) Supporting Document(s) ID Date Data Source [id number] 04/01/2021 06:53:00 PM EDT [facility] Nurse's NotesClaxton-Naveen Medical Tootie terName: Yareli DuvallAge: 20 yrsSex: FemaleDOB: 2000MRN: [id number] Date: 03/30/2021Time: 23:26Account#: [id number] 1Priash MD: NONE, - Per PatientDiagnosis: Free text-PTSD, bipolar with depressionPresentation:03/1923:28 Presenting complaint: Patient brought in by [employer] officer [facility] xm3zjhhaqyeft due to patient calling reporting suicidal thoughts with plan to hangself oroverdose. International Travel Fever No. Coronavirus Screening: Have you beendiagnosedwith COVID-19 in the past 30 days? no Are you currently on quarantine by Public[employer]?no Flu-like symptoms reported in the last 14 days: no. Have you had closecontact withconfirmed or suspected COVID-19 case? no Do you live in a setting where a largeofamount of people live, such as fdc, family care, half-way, etc? no. Haveyoutraveled to a location with widespread or ongoing COVID-19 community spread [facility]? no Have you traveled internationally or h ad contact with someonethat hastraveled and has been ill in the past 3 weeks? no Have you received the COVIDvaccine?Yes. Communicable Disease Screen: Negative for fever>/= 100 degrees Fahrenheit.Communicable disease screen is negative. (-) rash or unusual skin lesion (-)travel/contact with traveler (-) respiratory symptoms. Communication SpeaksEnglish?Yes, is preferred language.23:28 Acuity: Triage 0yf091:28 Method Of Arrival: Ndjfffxj903:30 Acuity Assignment: Triage 4ou4Uqdyav Assessment:23:33 General: Appears in no apparent distress, [...] threats or abuse. Denies injuries from another.Nutritional oi3mcaoomihs: No deficits noted. Offer of HIV testing: patient was previouslyofferedscreening. Fall Risk None identified.Assessment:23:44 Reassessment: see triage.jw509/2000:54 Reassessment: No changes from previously documented assessment.jw503:24 Reassessment: after PSA informed patient that she would have to wait tillmorning and xx4pbtm the morning psychiatrist decide if she would [...] 10 mg po to helpwith anxiety MD alcalaju4pvxrmevh and order received and medication given .05:02 Reassessment: Patient was using a marker to color as a coping strategyand took marker vd2geukq and cut left forearm with part of [...] try to push way throughER door several vm8jknhcpie made to keep patient turned around, patient [...] and joking with staff in a bright mood.vc4Ctwvlxaflnlg:03/2002:34 SAFE Act Report Not Completed. Intervention: Observation Level 3. Mentalhealth consult hfis initiated at 01:50. Referral Information: Evaluation referral is generatedby apolice agency: [facility]. The patient was referred for evaluationbecausesuicidal i deation with a plan. Subjective: The patients chief complaint is Ptpresentsto the ED with [facility] due to Pt contacting them stating that she issuicidalwith a plan. Pt reports increased depression and being suicidal with a plan tohangself, overdose or jump off a bridge. Pt reports that she was at [facility] and transferred to [facility] yesterday and discharged. Ptreports thatshmainor is still feeling suicidal and was unable to contract for safety so doesn'tknow whythey discharged her. Pt reports increased stress due to; not feeling safe ather TLSresidence due to another resident, increased family conflict due to beingtransgenderand an ex being in [place]. Pt states that she has not been following the rulesat [facility].Pt denies HI. Pt denies any recent suicide attempts, last being February 2020 byoverdose. Pt does have an extensive history of suicide attempts, reporting 10+.Ptreports self harm by scraping her arm with a knife three weeks ago. [facility] [place]. Pt reportsthat shehas been eating more due [...] overdose 02/2020 Mental HealthAdmissions:multiple, last being at [place] 03/[place]/21 Current Outpatient Mental HealthServices:Psychiatrist / Agency: [facility] (Formerly [facility] in [place]). Therapist /Agency:Grayson Farley (Formerly [facility] in [place]). Living Environment: The patientcurrently lives in a [facility] residence. Patient presents to Emergency Departmentwith [...] structure. pills. Homicidal Ideation: Denies.02:56 Narrative This flex o writer operator spoke with Dr. Simon, Dr. Simon recommendskeeping Pt in the ED hfat this time and presenting Pt to the psychiatrist on during the day.Consultation:Psych MD informed of patient's status at 02:56, ED MD notified of patientsstatus at02:56. Disposition: Medically cleared for disposition by Dr Argueta.PsychiatricConsult is performed by phone with Dr Simon. The patient is not a servicemember ormilitary dependent. [place] Suicide Severity Rating Scale: Suicidal IdeationRating 3;Intensity of Ideations Rating 15; Suicidal Behavior Rating 0.07:39 Narrative PSA role handed off to this flex o writer operator at 0730 AM.hf07:53 Narrative PSA role handed off to this flex o writer operator at 0730 AM.em210:49 Narrative Pt is sleeping. Sitter is present. Safety is maintained .em212:43 Narrative Pt is sleeping. Sitter is present. Safety is maintained.em217:17 Legal Status: Patient's legal status will be Emergency: 9.39. DSM-V DXAxis I nh9ohgbzscue: Other Borderline Personality Disorder [place] II diagnosis: DeferredAxis IIIdiagnosis: None. [place] IV diagnosis: poor coping skills. InsurancePre-Certification:Not Required. [facility] dmission Criteria: The patient is experiencing suicidalideation.The [...] status will be Emergency: 9.39. Commitmentpapers are ru2qhgqfphdd. Pt has been provided a copy of their legal status and rights. DSM- VDX AxisI diagnosis: Bipolar D/O, depressed Post Traumatic Stress Disorder. Transitionof careto Pt [facility] with [facility] and [facility].Psych:03/1923:37 Subjective: Patient's mood is elevated, Delusions are denied,Hallucinations are denied jn8Juzvwx thoughts of suicide. Plan for suicide is [...] Response: No adverse reaction; No change in rkbndivxxsm331:08 Drug: Geodon 20 mg [ziprasidone 20 mg/mL (final concentration)intramuscular solution jw5(1 mL)] Route: IM; Site: left deltoid;07:13 Follow up: Response: No adverse /2100:00 Drug: Geodon 20 mg [ziprasidone 20 mg/mL (final concentration)intramuscular solution tp2(1 mL)] Route: IM; Site: left deltoid;00:30 Follow up: Response: No adverse wznbypcdcy302:00 Drug: LORazepam 2 mg [lorazepam 2 mg/mL injection solution (1 mL)] Route:IM; Site: uo4sgoiv deltoid;00:30 Follow up: Response: No adverse yhhwyzymfd571:00 Drug: diphenhydrAMINE 50 mg [diphenhydramine 50 mg/mL injection solution(1 mL)] Route: tp2IM; Site: right deltoid;00:30 Follow up: Response: No adverse qavgsgbers288:22 Drug: LORazepam 2 mg [lorazepam 2 mg/mL injection solution (1 mL)] Route:IM; Site: jlright vastus lateralis;10:33 Follow up: Response: Anxiety kvwddogvjnx319:23 Drug: diphenhydrAMINE 50 mg [diphenhydramine 50 mg/mL injection solution(1 mL)] Route: jlIM; Site: right vastus lateralis;10:33 Follow up: Response: Anxiety enwixqksbwf519:24 Drug: Geodon 20 mg [ziprasidone 20 mg/mL (final concentration)intramuscular solution jl(1 mL)] Route: IM; Site: right vastus lateralis;10:33 Follow up: Response: Anxiety qavrbkeekch7Xlvfzxf:18:06 Disposition: Admitted to Ynxgmtv199:06 Condition: stable, Provider notified of abnormal vital signs.18:06 Discharge instructions given to patient, Instructed on need for admit,Demonstratedunderstanding of instructions.18:06 Discharge Assessment: Patient verbalized understanding of dispositioninstructions.Patient has no functional deficits.18:33 Decision to Hospitalize by Provider.se18:53 Patient left the ED.jlSignatures:Vincenzo Luis, RN RN fbgElliott, MD MD Ladan Espinal Todd, MD MD eg2JkdxoFortunato Mark, RN RN vi3MggvkzjdAmi arthur, RN RN [id number] Collier, RN JOSE LUIS jlPutBreonna yu, RN RN [id number], Danae, RN JOSE LUIS [id number], Vani Styles hfCorrections: (The following items were [...] off of the bed bysticking her head [id number] the guard rail, very aggressive and tried to hurt staff, called staff"dumbsluts" and told us to "go kill ourselves". Notified, placed in 4 pointrestraints.tp2 Name Value Range Interpretation Code Description [facility] Supporting Document(s) ID Date Data Source [id number] 03/28/2021 12:00:00 AM EDT [facility] Name Value Range Interpretation Code Description Data [facility] rce(s) Supporting Document(s) Sodium 139 mmol/L 136-145 Normal (applies to non-numeric resul ts) [facility] Potassium 3.5-5.1 Below low normal [facility] spital Chloride 105 mmol/L 98-107 Normal (applies to non-numeric resul ts) [facility] Carbon Dioxide CO2 21-32 Normal (applies to non-numer ic results) [facility] Anion Gap 5.0-16.0 Normal (applies to non-numeric resul ts) [facility] BUN 21 mg/dL 7-18 Above high normal [facility] ospital Creatinine,Serum 0.7-1.2 Normal (applies to non-numeric results) [facility] GFR >60 Normal (applies to non-numeric results) [facility] Glucose Level 137 mg/dL 60-99 Above high normal [facility] Reference range is only applicable when patient is fasting Note the following drug interference: Sulfasalazine Sulfapyridine Can see falsely depressed Can see falsely elevated result with up to 17% results with up to 11% decrease in measurement increase in measurement Recommend patients be collected for this test prior to administration of either drug. Calcium 8.5-10.1 Below low normal [facility] spital Bilirubin,Total 0.1-1.9 Normal (applies to non-numeric results) [facility] SGOT(AST) 20 U/L 15-37 Normal (applies to non-numeric resul ts) [facility] Note the following drug interference: Sulfasalazine Sulfapyridine Can see falsely depressed Can see falsely elevated result with up to 10% results with up to 10% decrease in measurement increase in measurement Recommend patients be collected for this test prior to administration of either drug. SGPT(ALT) 48 U/L 12-78 Normal (applies to non-numeric resul ts) [facility] Note the following drug interference: Sulfasalazine Sulfapyridine Can see falsely depressed Can see falsely elevated result with up to 29% results with up to 10% decrease in measurement increase in measurement Recommend patients be collected for this test prior to administration of either drug. Alkaline Phosphatase 114 U/L 38-126 Normal (applies to non-num deena results) [facility] can increase Alkaline Phosp le vels up to 2 times the normal adult value. Normal values for children and adolescents are 2 to 3 times the normal adult value. Total Protein 6.0-8.2 Normal (applies to non-numeric re sults) [facility] Albumin Level 3.4-5.0 Normal (applies to non-numeric re sults) [facility] ID Date Data Source [id number] 03/28/2021 12:00:00 AM EDT [facility] Name Value Range Interpretation Code Description Data [facility] rce(s) Supporting Document(s) Troponin I 0.000-0.056 Normal (applies to non-numeric resu lts) [facility] ID Date Data Source [id number] 03/28/2021 12:00:00 AM EDT [facility] Name Value Range Interpretation Code Description Data Stephanie rce(s) Supporting Document(s) Magnesium 1.8-2.4 Normal (applies to non-numeric resul ts) [facility] ID Date Data Source [id number] 03/28/2021 12:00:00 AM EDT [facility] Name Value Range Interpretation Code Description Data Stephanie rce(s) Supporting Document(s) Salicylate 2.8-20.0 Below low normal [facility] ospital ID Date Data Source [id number] 03/28/2021 12:00:00 AM EDT [facility] Name Value Range Interpretation Code Description Data Stephanie rce(s) Supporting Document(s) Acetaminophen 10.0-30.0 Below low normal [facility] ID Date Data Source [id number] 03/27/2021 11:58:00 PM EDT [facility] Name Value Range Interpretation Code Description Data Stephanie rce(s) Supporting Document(s) Ethanol Less than 10.0 Normal (applies to non-numeric r esults) [facility] ID Date Data Source [id number] 03/27/2021 11:36:00 PM EDT [facility] Name Value Range Interpretation Code Description Data Stephanie rce(s) Supporting Document(s) White Blood Count 3.5-10.5 Normal (applies to non-numeri c results) [facility] Red Blood Count 3.90-5.00 Normal (applies to non-numeric results) [facility] Hemoglobin 12.0-15.5 Normal (applies to non-numeric resul ts) [facility] Hematocrit 34.9-44.5 Normal (applies to non-numeric resul ts) [facility] Mean Corpuscular Volume 81.2-95.1 Normal (applies to non- numeric results) [facility] Mean Corpuscular Hgb 25.6-32.2 Normal (applies to non-num deena results) [facility] Mean Corpuscular Hgb Conc 32.0-36.0 Normal (applies to no n-numeric results) [facility] Red Cell Distribution Width 11.9-15.5 Normal (appli es to non-numeric results) [facility] Platelet Count 254 x10 3/uL 150-450 Normal (applies to non-numeric results) [facility] Mean Platelet Volume 9.4-12.4 Normal (applies to non-num deena results) [facility] Neutrophils% (Auto) 31.0-71.0 Normal (applies to non-nume frank results) [facility] Lymphocytes% (Auto) 20.0-55.0 Normal (applies to non-nume frank results) [facility] Monocytes% (Auto) 4.0-12.0 Normal (applies to non-numeri c results) [facility] Eosinophils% (Auto) 1.0-8.0 Normal (applies to non-nume frank results) [facility] Basophils% (Auto) 0.0-2.0 Normal (applies to non-numeri c results) [facility] Immature Granulocytes% (Auto) 0.0-2.0 Normal (alexander lies to non-numeric results) [facility] Neutrophils# (Auto) 1.50-6.20 Normal (applies to non-nume frank results) [facility] Lymphocytes# (Auto) 1.20-4.00 Normal (applies to non-nume frank results) [facility] Monocytes# (Auto) 0.00-0.90 Normal (applies to non-numeri c results) [facility] Eosinophils# (Auto) 0.00-0.50 Normal (applies to non-nume frank results) [facility] Basophils# (Auto) 0.00-0.20 Normal (applies to non-numeri c results) [facility] Immature Granulocytes# (Auto) 0.00-7.00 No rmal (applies to non-numeric results) [facility] ID Date Data Source [id number] 03/28/2021 12:21:00 AM EDT [facility] First test? UNKNOWNEmployed in [facility] re? UNKNOWNSymptomatic per CDC? UNKNOWNIf yes date of onset? 03/27/21Hospitalized? UNKNOWNICU? UNKNOWNResident in congregated care? ex fdc, [facility] UNKNOWN? UNKNOWN Name Value Range Interpretation Code Description Data Stephanie rce(s) Supporting Document(s) SARS-CoV-2 RNA Negative Normal (applies to non-numeric r esults) [facility] Negative results should be treated as [...] Certificate of Accreditation. Factsheets for healthcare providers: https://www.fda.gov/media/117627/download Factsheets for patients: https://www.fda.gov/media/713910/download The ID NOW Instrument is a rapid molecular in vitro diagnostic test utilizing an isothermal nucleic acid amplification technology intended for the qualitative detection of nucleic acid from the SARS-CoV-2 viral RNA. THIS IS A STATE REPORTABLE COMMUNICABLE DISEASE. Manual entry verified by Aysha Andrade 03/28/21 0020 ID Date Data Source [id number] 03/28/2021 12:05:00 AM EDT [facility] Name Value Range Interpretation Code Description Data Stephanie rce(s) Supporting Document(s) HCG,Ur Negative Normal (applies to non-numeric results) [facility] ID Date Data Source [id number] 03/27/2021 11:58:00 PM EDT [facility] Name Value Range Interpretation Code Description Data Stephanie rce(s) Supporting Document(s) UDS Benzodiazepines Screen Negative Normal (applies to n on-numeric results) [facility] UDS Cocaine Screen Negative Normal (applies to non-numer ic results) [facility] UDS Ampetamine Screen Negative Normal (applies to non-nu meric results) [facility] UDS Cannabinoids Screen Negative Normal (applies to non- numeric results) [facility] UDS Opiates Screen Negative Normal (applies to non-numer ic results) [facility] UDS Barbiturates Screen Negative Normal (applies to non- numeric results) [facility] Threshold Levels Benzodiazepine 200 ng/mL Cocaine 300 ng/mL Amphetamines 1000 ng/mL Cannabinoids (THC) 50 ng/mL Opiates 300 ng/mL Barbiturates 200 ng/mL All positive findings are presumptive and unconfirmed. Confirmation of positive results are performed only at request of provider. Unconfirmed results must not be used for non-medical purposes (i.e. preemployment and legal purposes) ID Date Data Source [id number] 03/27/2021 11:37:00 PM EDT [facility] Collected By: Nurse Name Value Range Interpretation Code Description Data Stephanie rce(s) Supporting Document(s) Color,Urine Colorl-Dk Y Normal (applies to non-numeric res ults) [facility] Clarity,Urine Clear Normal (applies to non-numeric re sults) [facility] Specific [place],Urine 1.005-1.030 [place] [facility] pH,Urine 5.0-8.0 Normal (applies to non-numeric resul ts) [facility] Protein,Urine Negative Normal (applies to non-numeric re sults) [facility] Glucose,Urine Negative Normal (applies to non-numeric re sults) [facility] Ketones,Urine Negative Normal (applies to non-numeric re sults) [facility] Blood,Urine Negative Normal (applies to non-numeric resu lts) [facility] Bilirubin,Urine Negative Normal (applies to non-numeric results) [facility] Urobilinogen,Urine 0.2-1.0 Normal (applies to non-numer ic results) [facility] Leukocyte Esterase,Urine Negative Normal (applies to non -numeric results) [facility] Nitrite,Urine Negative Normal (applies to non-numeric re sults) [facility] ID Date Data Source [id number] 03/27/2021 10:35:00 PM EDT [facility] Name Value Range Interpretation Code Description Data Stephanie rce(s) Supporting Document(s) Respiratory specimen severe acute respir atory syndrome coronavirus 2 (SARS-CoV-2) RNA Negative (qualifier value) [facility] This lab [facility] and reported by . ID Date Data Source [id number] 03/25/2021 09:40:00 PM EDT [facility] Name Value Range Interpretation Code Description Data Stephanie rce(s) Supporting Document(s) Respiratory specimen severe acute respir atory syndrome coronavirus 2 (SARS-CoV-2) RNA Negative (qualifier value) [facility] This lab was ordered by Mayurvaleria heaton and reported by . ID Date Data Source [id number] 03/25/2021 10:10:00 PM EDT [facility] Collected By: Nurse Initials: cs Time Collected: 2142 Collected By: Nurse Initials: cs Time Collected: 2142 Collected By: Nurse Initials: cs Time Collected: 2142 Name Value Range Interpretation Code Description Data Stephanie rce(s) Supporting Document(s) Color,Urine Colorl-Dk Y Normal (applies to non-numeric res ults) [facility] Clarity,Urine Clear Normal (applies to non-numeric re sults) [facility] Specific [place],Urine 1.005-1.030 [facility] pH,Urine 5.0-8.0 Normal (applies to non-numeric resul ts) [facility] Protein,Urine Negative [facility] Glucose,Urine Negative Normal (applies to non-numeric re sults) [facility] Ketones,Urine Negative Normal (applies to non-numeric re sults) [facility] Blood,Urine Negative Normal (applies to non-numeric resu lts) [facility] Bilirubin,Urine Negative [facility] pital Urobilinogen,Urine 0.2-1.0 Normal (applies to non-numer ic results) [facility] Leukocyte Esterase,Urine Negative Normal (applies to non -numeric results) [facility] Nitrite,Urine Negative Normal (applies to non-numeric re sults) [facility] ID Date Data Source [id number] 03/25[facility]2021 [facility]10[facility]: [facility] Initials: cs Time Collected: 2142 Collected By: Nurse Initials: cs Time Collected: 2142 Collected By: Nurse Initials: cs Time Collected: 2142 Name Value Range Interpretation Code Description Data Stephanie rce(s) Supporting Document(s) RBC,Urine None Seen [facility] WBC,Urine None Seen [facility] Casts,Urine None Seen Normal (applies to non-numeric resu lts) [facility] Epithelial Cells,Urine None - Few Normal (applies to non-n umeric results) [facility] Squamous Cells,Urine None Seen [facility] Bacteria,Urine None Seen [facility] ital ID Date Data Source [id number] 03/25/2021 10:10:00 PM [facility] Collected By: Nurse Initials: cs Time Collected: 2142 Collected By: Nurse Initials: cs Time Collected: 2142 Collected By: Nurse Initials: cs Time Collected: 2142 Name Value Range Interpretation Code Description Data Stephanie rce(s) Supporting Document(s) HCG,Ur Negative Normal (applies to non-numeric results) [facility] This is a Corrected Result --- 03/25/212206 --- Ur HCG previously reported as: Negative ID Date Data Source [id number] 03/25/2021 10:04:00 PM [facility] Name Value Range Interpretation Code Description Data Stephanie rce(s) Supporting Document(s) SARS-CoV-2 RNA Negative Normal (applies to non-numeric r esults) [facility] Negative results should be treated as [...] Certificate of Accreditation. Factsheets for healthcare providers: https://www.fda.gov/media/488313/download Factsheets for patients: https://www.fda.gov/media/254367/download The ID NOW Instrument is a rapid molecular in vitro diagnostic test utilizing an isothermal nucleic acid amplification technology intended for the qualitative detection of nucleic acid from the SARS-CoV-2 viral RNA. THIS IS A STATE REPORTABLE COMMUNICABLE DISEASE. Manual entry verified by Rachel Leslie 03/25/212202 ID Date Data Source [id number] 03/25/2021 10:04:00 PM EDT [facility] Name Value Range Interpretation Code Description Data Stephanie rce(s) Supporting Document(s) UDS Benzodiazepines Screen Negative Normal (applies to n on-numeric results) [facility] UDS Cocaine Screen Negative Normal (applies to non-numer ic results) [facility] UDS Ampetamine Screen Negative Normal (applies to non-nu meric results) [facility] UDS Cannabinoids Screen Negative Normal (applies to non- numeric results) [facility] UDS Opiates Screen Negative Normal (applies to non-numer ic results) [facility] UDS Barbiturates Screen Negative Normal (applies to non- numeric results) [facility] Threshold Levels Benzodiazepine 200 ng/mL Cocaine 300 ng/mL Amphetamines 1000 ng/mL Cannabinoids (THC) 50 ng/mL Opiates 300 ng/mL Barbiturates 200 ng/mL All positive findings are presumptive and unconfirmed. Confirmation of positive results are performed only at request of provider. Unconfirmed results must not be used for non-medical purposes (i.e. preemployment and legal purposes) ID Date Data Source [id number] 03/25/2021 09:47:00 PM EDT [facility] Name Value Range Interpretation Code Description Data Stephanie rce(s) Supporting Document(s) Ethanol Less than 10.0 Normal (applies to non-numeric r esults) [facility] ID Date Data Source [id number] 03/25/2021 09:17:00 PM EDT [facility] Name Value Range Interpretation Code Description Data Stephanie rce(s) Supporting Document(s) White Blood Count 3.5-10.5 Normal (applies to non-numeri c results) [facility] Red Blood Count 3.90-5.00 Normal (applies to non-numeric results) [facility] Hemoglobin 12.0-15.5 Normal (applies to non-numeric resul ts) [facility] Hematocrit 34.9-44.5 Normal (applies to non-numeric resul ts) [facility] Mean Corpuscular Volume 81.2-95.1 Normal (applies to non- numeric results) [facility] Mean Corpuscular Hgb 25.6-32.2 Normal (applies to non-num deena results) [facility] Mean Corpuscular Hgb Conc 32.0-36.0 Normal (applies to no n-numeric results) [facility] Red Cell Distribution Width 11.9-15.5 Normal (appli es to non-numeric results) [facility] Platelet Count 264 x10 3/uL 150-450 Normal (applies to non-numeric results) [facility] Mean Platelet Volume 9.4-12.4 Normal (applies to non-num deena results) [facility] Neutrophils% (Auto) 31.0-71.0 Normal (applies to non-nume frank results) [facility] Lymphocytes% (Auto) 20.0-55.0 Normal (applies to non-nume frank results) [facility] Monocytes% (Auto) 4.0-12.0 Normal (applies to non-numeri c results) [facility] Eosinophils% (Auto) 1.0-8.0 Normal (applies to non-nume frank results) [facility] Basophils% (Auto) 0.0-2.0 Normal (applies to non-numeri c results) [facility] Immature Granulocytes% (Auto) 0.0-2.0 Normal (alexander lies to non-numeric results) [facility] Neutrophils# (Auto) 1.50-6.20 Normal (applies to non-nume frank results) [facility] Lymphocytes# (Auto) 1.20-4.00 Normal (applies to non-nume frank results) [facility] Monocytes# (Auto) 0.00-0.90 Normal (applies to non-numeri c results) [facility] Eosinophils# (Auto) 0.00-0.50 Normal (applies to non-nume frank results) [facility] Basophils# (Auto) 0.00-0.20 Normal (applies to non-numeri c results) [facility] Immature Granulocytes# (Auto) 0.00-7.00 No rmal (applies to non-numeric results) [facility] ID Date Data Source [id number] 03/25/2021 09:55:00 PM EDT [facility] Name Value Range Interpretation Code Description Data Stephanie rce(s) Supporting Document(s) Sodium 141 mmol/L 136-145 Normal (applies to non-numeric resul ts) [facility] Potassium 3.5-5.1 Normal (applies to non-numeric resul ts) [facility] Chloride 106 mmol/L 98-107 Normal (applies to non-numeric resul ts) [facility] Carbon Dioxide CO2 21-32 Normal (applies to non-numer ic results) [facility] Anion Gap 5.0-16.0 Normal (applies to non-numeric resul ts) [facility] BUN 12 mg/dL 7-18 Normal (applies to non-numeric results) [facility] Creatinine,Serum 0.7-1.2 Normal (applies to non-numeric results) [facility] GFR >60 Normal (applies to non-numeric results) [facility] Glucose Level 96 mg/dL 60-99 Normal (applies to non-numeric re sults) [facility] Reference range is only applicable when patient is fasting Note the following drug interference: Sulfasalazine Sulfapyridine Can see falsely depressed Can see falsely elevated result with up to 17% results with up to 11% decrease in measurement increase in measurement Recommend patients be collected for this test prior to administration of either drug. Calcium 8.5-10.1 Normal (applies to non-numeric resul ts) [facility] Bilirubin,Total 0.1-1.9 Normal (applies to non-numeric results) [facility] SGOT(AST) 27 U/L 15-37 Normal (applies to non-numeric resul ts) [facility] Note the following drug interference: Sulfasalazine Sulfapyridine Can see falsely depressed Can see falsely elevated result with up to 10% results with up to 10% decrease in measurement increase in measurement Recommend patients be collected for this test prior to administration of either drug. SGPT(ALT) 52 U/L 12-78 Normal (applies to non-numeric resul ts) [facility] Note the following drug interference: Sulfasalazine Sulfapyridine Can see falsely depressed Can see falsely elevated result with up to 29% results with up to 10% decrease in measurement increase in measurement Recommend patients be collected for this test prior to administration of either drug. Alkaline Phosphatase 126 U/L 38-126 Normal (applies to non-num deena results) [facility] can increase Alkaline Phosp le vels up to 2 times the normal adult value. Normal values for children and adolescents are 2 to 3 times the normal adult value. Total Protein 6.0-8.2 Normal (applies to non-numeric re sults) [facility] Albumin Level 3.4-5.0 Normal (applies to non-numeric re sults) [facility] ID Date Data Source [id number] 03/25/2021 09:55:00 PM EDT [facility] Name Value Range Interpretation Code Description Data Stephanie rce(s) Supporting Document(s) Troponin I 0.000-0.056 Normal (applies to non-numeric resu lts) [facility] ID Date Data Source [id number] 03/25/2021 09:55:00 PM EDT [facility] Name Value Range Interpretation Code Description Data Stephanie rce(s) Supporting Document(s) Magnesium 1.8-2.4 Normal (applies to non-numeric resul ts) [facility] ID Date Data Source [id number] 03/25/2021 09:55:00 PM EDT [facility] Name Value Range Interpretation Code Description Data Stephanie rce(s) Supporting Document(s) Salicylate 2.8-20.0 Below low normal [facility] ID Date Data Source [id number] 03/25/2021 09:55:00 PM EDT [facility] Name Value Range Interpretation Code Description Data Stephanie rce(s) Supporting Document(s) Acetaminophen 10.0-30.0 Below low normal [facility] ID Date Data Source [id number] 03/25/2021 07:15:08 AM EDT [facility] Name Value Range Interpretation Code Description Data Stephanie rce(s) Supporting Document(s) Discharge Summary [facility] YIFKVb6tCoLYDxVm72/MNPlcSGQuq6BwXKxkWZl1KReeIRVaF7IzOUL0jU5dFPX6JYkEQqQoWvAsEKN1 lbm [file] lqBP2S3vmefWLbCZiJPNl++/stamp maker//yq4IuhuGpWkilUwKXivPhd/eV8ZD1Lmj6SMZ/WOIEjGslPHMFZG6 [file] HIE3wHRiOc3UYaRkEKNZIrJtTD4ZYKa= ID Date Data Source [id number] 03/24/2021 09:16:00 AM [facility]T [facility] Ex[facility] Number: [id number] Reported By: - SHIVAM OSCAR MD Signed By: SHIVAM OSCAR MD Name Value Range Interpretation Code Description Data Stephanie rce(s) Supporting Document(s) ID Date Data Source [id number] 03/21/2021 04:51:30 PM EDT [facility] Name Value Range Interpretation Code Description Data Stephanie rce(s) Supporting Document(s) History and Physical [facility] EKVAQw1iNmSUVqEx62/NXJanEOEyb7CqRZtfPMv2DReoIWIoH2DaNUY3yH1mOIE3HLmSEzEtBtGlWSWz lbm [file] AgICAgICAgICAgICAgICAgICAgICAgICAgICAgICAgICAgICAgICAgICAgICAgICAgICAgICAgICAgIC GhYSRuGE1SKPMbAGIjSEMvJVPuBIFdSISrLHNfXGNj ICAgICAgICAgICAgICAgICAgICAgICAgICAgICAgICAgICAgICAgICAgICAgICAgICAgICAgICAgICAg QVBeXQGjMVFhAHLpJIEaUK6GDVPrPIZsHCOfTWBqAUBqDSVxCJPjQOSlYSOjFDErMRYnQDPtQJQxYZHr ICAgICAgICAgICAgICAgICAgICAgICAgICAgICAgIC GnCBHnFKUjSVQlSPJqIZOyCWRvLXVeYYBvEC0YJXNgMGIfARQvYCAeBHRiYIAkGSWhVQMvLLPbDCZyTG AgICAgICAgICAgICAgICAgICAgICAgICAgICAgICAgICAgICAgICAgICAgICAgICAgICAgICAgICAgIC OcPOEiPSYzKL3ZCVFoGFFjJQZoCYBqAOZcBCFrJYCf ICAgICAgICAgICAgICAgICAgICAgICAgICAgICAgICAgICAgICAgICAgICAgICAgICAgICAgICAgICAg AIRyCFFoQEYkPNGvOMAzBLCzEI3WGWNeDHGeZLNcOELxNZMvDEIbNNGsRNPuYZIcBWIvQKRtATQxLRBj ICAgICAgICAgICAgICAgICAgICAgICAgICAgICAgIC RpIOIbJQErPERtYYRwXOYfDJWcPYFtESWdGQEaNF9THCYlDUViAGAvXYYeWRMqHASeWIBwJZGsVDKaCZ AgICAgICAgICAgICAgICAgICAgICAgICAgICAgICAgICAgICAgICAgICAgICAgICAgICAgICAgICAgIC GgUPTvINPtFBVePC2SBSWcWDQvSVMrQUUjUHLnCDWu ICAgICAgICAgICAgICAgICAgICAgICAgICAgICAgICAgICAgICAgICAgICAgICAgICAgICAgICAgICAg NICpXFPrOBNyVFBcIKUrIMHbYBJxHL6RVXKhVZDpEWAjXKCpGWQcMUGqDAOcOKTgUUIcRYOzIBGrCLPh ICAgICAgICAgICAgICAgICAgICAgICAgICAgICAgIC EdWLSjJNIoCZNrYXHzJPTcPJQzQFAiHCRpIGQvDBGlRZ0PFLPeAVNcTJEtNGEtXAUyZULdMKHnPEFzYI AgICAgICAgICAgICAgICAgICAgICAgICAgICAgICAgICAgICAgICAgICAgICAgICAgICAgICAgICAgIC PhRQUaCZZpSUWhJZCfCA0UFI47qPOat6Y2RYOaRQ9q dyc/Vw6FYIdiiiLlnNBhXQ8TJhYzRP6fjv6NYsQqYX2abw4QXDhLBkDyP5V9hCLhVBPhTGOEGbTiX51u GXvcRp71VMsiDVXdQqWqCYt6Nz9KWhUfZ7gyBOXtDqD5SZJlZuJ7YVRhKcA4UCDqBaVePVLaAVWwDLBk MJWKOM8IDqNuY4ZegS14ZAOPMw0+DQplbmRvYmoNCj F1BQYfk2WtYBe1QY9HYYEnKlfgc6PzKkkgIXXQNDtdWH8XZCS1RZH7QSYkNi6UIEPlZ229qhFlON3QYy 8GIfJqKK5pwm7OHcbzUITgRclMDui1SHnnQI1ZfKYkJTmMXfLbXmrrRQQuwXRRZYFaCWAgkBgcKGKcXE OmJG6xNI6rVLJnHVDcNuS7WHFSZV9JORZuZFGgqPFk IJZjWMZXJV9KYLujCBP8MJPqugTifGCyLOlwKX8WUGBgyoVlJaRtGKHJVFc+Ij9GRE6ne1WnJKsrQJEi YN2oaq1UMXmFDiBiJ9Q7rAEhN8P1GZqxSz2ZFJFfRAEeHwYrWCNQZLfdPV9IQT3yexW8WQ9ErGKgXJOs IKVbpQYaONb1J39awSCuBKndJX3KPUJ+Dillon+Pg0KIC WbHRJvFOAwEiJaPGKPXuVlU3IsB0BBh7KqN1YzOY26uApburHrMSplDD3DBB8lEDWqDBCYYY9LmSNfiR 9ficCqCeCtOGDVBgMiU17bdMJoRYIzXZW6RRBdLk8CCSUbC2MnoxIchDtcrlKlHFJsMRECWN6NADoaed WriBKmzRcuTS49wOqxKT5JHt2ZXaJpFI1ffs6MeFKa Mf4DQYWyZU5LQVWoNJDvDXUbVFY0CREmAjQlHTotRMGbHLOrYSL3HQEcUDBbTU2DZtKhDGYsQlYtPJgx ZFChHJUdin6GYGQeKPIiUaR5OVXcPLErZONsNMuqGWJvPWDuNMX3JPPiDRLdRR8GHtAzVCZdLBKnTKat FHDhYRYhwa0HWTJoMCQdRhAgROWzYQAfCGMmVXhxQK KeZOG7WTz6XEWjLWScDG1QLyZqTUBfHNR1XZJrZNWfQQFbfq7UZNVyZENjSVLvWTXkWADsJLOoBYfbLV KnLMO1GtP2MWBnHPHzOM6OTbPiRIRnAJA6GRRjFBHuRHMdsm2BOKPmSCJeDiojLTYkSQFkWFDqUFreAE EiKUK6MYG0OWPmGUOzIQ6YVzLtMSCxYHVtWDEqLMYy LCQpqq4PCUBeRTMuTnDuXMIhGXQiMLKdGDmyFMDuDWF8IDs4MWSvWKYsSI2JHaNgGBYaKQJ1IFTiYYRq WAPycv5QBZDsSREcVsFaHPLfVSZuMJClOKspDDXkUAJ3CDTjFOXsFUHtJX3VTqReVUSpTTarPclfYFOa CKOrso8EOWKwLYJbTWf0JQIyKJUlKFKpRPeiRYZoIL T7JOp6CIKdCYKoGA4TGuCvFLSwCJqnAwouAZZbNOOdre0VIMGjTQMfFZm9MVTmQUNmLUAjNSlcASBqQV PdPZfkKPUcSMRcBW8EBnUyJUZbQnTkRLCrRMJvWPJfjt3AOJNuKLSuLSFpACPqTUWqKPSmPRnnDKYxCH JrEeE0VNYuMGStDL2HZiVfQJMtQjU0AJGaDKJsNYMt qq9ZXCPkGZJlWqm9VBRjASKnTSAaTTptBGEzDHSqDYm7YCEcVBNbNL9DVtVhFSFsWnX4BZueOJKcJZIy rq6XXPYfHAAtFHHwFeSzTZLwADNlZOkfCQYaMAI3Lfe5VAYkAAIpUK1UIfGaEUDeEvD8XQQmXJBgVLOx zk3AZSJlYTCtPeIhDDQyUNScFGYxRYglQRWgHHQ2Am n5JWBtPBUxWL5BHxUwJNUrArU7TLBeXGNzFJAbrt7FdSKojCvclx7WBIuATg1TrMptWND4PPakIa4myV DuHHEkVJZSQd3ZgjGrZDHjVTYQWXsaPHAlODeoGetjEAVgJjI6WEWqJTVkYQK7QbA8OgvxKIM9TOUsPt L1RRHgLdAcQBK7PoR6VdY3GaGrGwUpVvJ5MKFdINXb NWE+YA0gTEf+Ry7Jr1MqteA9eyCrFSlaAjI8PX5WYQVLS3XNYn== ID Date Data Source [id number] 03/21/2021 04:41:32 PM EDT [facility] Name Value Range Interpretation Code Description Data Stephanie rce(s) Supporting Document(s) History and Physical [facility] BXJMAl3aOrMOZsDo78/QPVtrQIBai4AvZRdiHGs4KGwoUKIiC1GhIAH8uK5uHVE8XDwLGtJoIxGkJPIp lbm [file] thu5ZT/R89XndqpeNGB06KXwC/ODV+compensation and benefits administrator+pXL6vhQWC [file] E+DQogICAgICAgICAgICAgICAgICAgICAgICAgICAgICAgICAgICAgICAgICAgICAgICAgICAgICAgIC AgICAgICAgICAgICAgICAgICAgICAgICAgICAgICAg ICAgICAgICAgICAgDQogICAgICAgICAgICAgICAgICAgICAgICAgICAgICAgICAgICAgICAgICAgICAg ICAgICAgICAgICAgICAgICAgICAgICAgICAgICAgICAgICAgICAgICAgICAgICAgICAgICAgDQogICAg ICAgICAgICAgICAgICAgICAgICAgICAgICAgICAgIC AgICAgICAgICAgICAgICAgICAgICAgICAgICAgICAgICAgICAgICAgICAgICAgICAgICAgICAgICAgIC AgICAgDQogICAgICAgICAgICAgICAgICAgICAgICAgICAgICAgICAgICAgICAgICAgICAgICAgICAgIC AgICAgICAgICAgICAgICAgICAgICAgICAgICAgICAg ICAgICAgICAgICAgICAgDQogICAgICAgICAgICAgICAgICAgICAgICAgICAgICAgICAgICAgICAgICAg ICAgICAgICAgICAgICAgICAgICAgICAgICAgICAgICAgICAgICAgICAgICAgICAgICAgICAgICAgDQog ICAgICAgICAgICAgICAgICAgICAgICAgICAgICAgIC AgICAgICAgICAgICAgICAgICAgICAgICAgICAgICAgICAgICAgICAgICAgICAgICAgICAgICAgICAgIC AgICAgICAgDQogICAgICAgICAgICAgICAgICAgICAgICAgICAgICAgICAgICAgICAgICAgICAgICAgIC AgICAgICAgICAgICAgICAgICAgICAgICAgICAgICAg ICAgICAgICAgICAgICAgICAgDQogICAgICAgICAgICAgICAgICAgICAgICAgICAgICAgICAgICAgICAg ICAgICAgICAgICAgICAgICAgICAgICAgICAgICAgICAgICAgICAgICAgICAgICAgICAgICAgICAgICAg DQogICAgICAgICAgICAgICAgICAgICAgICAgICAgIC AgICAgICAgICAgICAgICAgICAgICAgICAgICAgICAgICAgICAgICAgICAgICAgICAgICAgICAgICAgIC AgICAgICAgICAgDQogICAgICAgICAgICAgICAgICAgICAgICAgICAgICAgICAgICAgICAgICAgICAgIC AgICAgICAgICAgICAgICAgICAgICAgICAgICAgICAg WUNyXMHeDYXmJPJgZINuWZEqTNZjLRv5Q3ttKKWuLKScYP6iWEd1Lb6+LWuWBdRsNEN2zgIoxC6MBZ9h e7PaLEglXJBbk6IlDWb4HQ8BCTTcGIqdCT2UBJaror3RVSMqSLQuvIXQv6fvCwVyHKR9EJEwXobnGK4U ZNOxJ9eqnyQrAKZdLLOEWMliZXEESDozIZGMVUNxCP JqWeLkWzZkLJVqRRVfZXPPFJG4MVHpFeGeUZGlVDQpXuXqMNSCBLW6JDYcEwNiOGhtXR5Vv7QpvVBqGZ 3DZw4HDcAvJO8jkj1UPLUbLMLjTmySXme2XIroFE9FdXGwrOA6XJYmIQGTIbVxU1mic7LwDFUaQOQLEF srQU1Bg2DifTIfBNy+Is8ZZR4ly6QhRIb0CUFiJP5s mb4WLVsUOnIhT5LgdFvdLQclEJKffDXFe5liuyLCIP0reEElBAE1WYzbKWNtPgEpOVIeOxdpOELLFZoV PxYtG8Qwc5GkHcW9VWRzCxBgAYxrLCKuGaA4NM02hSfwHI4CKHXeYWMhXN03UBToOUVwOg3KKw3SAgKy SY8agr4LIgRxLKRjYxiBLxl9PObuLK0ImFEqRU1Yoz 2tqDVyY6XylCkeRWCzXSezfaSnGa4dQMEzDNvvXCWpJO1jS7bpH9byO2DpSUWRKbZzE8KwW8RrFaQzCE GtWsApSJPuCJT6FTTAEsZlI1SfGIpvCsMhVJAIHB6REpqwILNaE4UGCPuNWH6CQ5qMT3AHKT9VRXzERv gGRyNHK7PAA7NKC90NYzZoBZ5+AB5OSi8AKpFsCQ4s to6WTADwIIDqQaqZYfr9ABbnAY7OaMFwQ9BbfCLyl9gGIvSeX7LDLVP8PLJvHw9YFHExAoHtYDWxCGac YG4lPQAjFBHMaMysihM8WP2YKG4fkhGhEI9WCvVoUq2yRe8BFrPzQ4IxP6OrSXCyQSUPOAttZC6UQVmi MI2nHX0Xe7YVePMvwY3rgu7OSRAdFFVmMfkpoo0YBe ksV1A7iRytYJCmZFBuEZUTNMhtWJ5JAWJcQXS3QJN4ZLRwHNNDQgZfR31bQR0LT9Zkn03nOzE8CGJxBg HkHBohFR16eWfyaqOqaIBcrFbzQF5DVy6+DQplbmRvYmoNCnhyZWYNCjAgNTMNCjAwMDAwMDAwMDAgNj J2MkXvVa8ZAKZiGXHxZGDgCtVfRXOsNMScVPjcDKGv VNF7VrQ9FDEzLFOeDE3UPmWsFIEtZLpgDCUgDHNdAOOceh6YHHMxXEKgCWJ4DxIdWNOwKHZxGTrpBFXh ZTV8AiO8GWQqYFPtUM9VCvQnJZVtFLL2XMHfNZGpFSBiah9SVMVlPFXeTfl7FOGkWXTiFDLcBRzdMWRp GJL8EHr1UKYyTFYtNX8QLrKkTGCpHWE0VihjXSVeNN Dsdu2JDGFjXGApWGv6WTOeFQEkHECdNSdeKPXhSDI0OjS0QEUhPOFxGA1TOoAtQZZnGBB4VtQgFAKnNK Vwft9RKOBsJHKwXuN7HcCzTIVwKJGiLXvoXFQtOKN5YeP7BXLtILZvHD2EJjYcWCIjIlP6CnZoSODzPO Nqmy2XWQYoXKCdIRG1UBSfVXGdVOGiVTodBBBlISU1 SkJ8CBSiFKMtSN8SWeOlFJVhNnD8ZtHkSMGrEBGzbm4WBFRvMTWzDEEsGuCeFKVrBROdVFahQVVcFQS8 IcA1GPDgHCBvBV3TWkYaZGIqOxY2WdYnVTCtJGTvjv5MLCKbDBF2XKGlQHIfXFMdFURvISzsVNPfZHSf SHv7BLNkAJWiKY5TPsHhFRFfXkApJLViQEYaQUWxhn 3XHVSyEDEcPYAhCGTfWILfJLEnBVyhETPkKBI8UEW5RWNcPEWxPM3MPgKlHMNjQeOxVnZfUMBhSJUgsk 6ULXXyJGCqIOR7FZUbUGVnKSVbWFfiSSLrZXD0IMS7XGQpOIMaHB2OHpHcWYTeLrS9GBLzOFBpSLCcfd 6YUCJnUTUoTjh4QGPmUJCgBWPkTAnaHPSqUJT7BYU6 MEApRBAyJT7CFbUiUPOoGayqXQUsJPQqOUEdep1HZYIfDOBeOWRmHHAkWBArIFCfCNlmGWWpUFI1MUw9 NBTuASPfZV5XCdFqOFJiWow8AVTdNHAjEBHvxe8LMKJzBWWeAQQ4TsZbZEEkTNMdMWioGNZnSDHyOVRx DSBhYHMdEA5KJdDjHSNxWVF7VwKrEQGdWPYwpd2CZE KkXAY8WVe5DXMzWFBeMNGhGKavRDXnWHV1URUbZIPrKTOmJR0MYuViVLQuCZMkFpMbXXLkBMRbiw7OZM TuITD9KeK5QPRgHNYiEAXfTFguYFKvDAW4DXq6IDUdOEQwIL4SIqUnVMWgFYP0HCtaDCSkBQWgxp9QBJ RrTAO8Nzq4KOAgCIKlBZQkTJfcWMZfHCA6DAm1CVQd BTRnRF6PSdIjBEKyTXxaUYGyLXZfEJNzvy0YTQPuFZG9MuhzWLHyFJCvXVQxQHohGQTyHKB2OoGtNJLt VQNkPV9EJrLgHBJuQNsgRPNyMZGoATIouz5NZSMiODR4JZF6DKLyHJQrDATuYJn7qgMzbQJuFLs8GC8R Y2XpgiQbYSLOZd5Ae014UCBvFQPgPm3WW5tpNp4vBT DpUAFVOq6QDRe1G9LkLIChHvDeUUtzKRXhBIvfIkg9GsD8WsmzKKucJXR+HVb2HPW1AuT4ZHQwZOWnGA QbCZL0NFpeVJHdJ1Z5A0B7XV6cUKTDPk7+LIrmvVRphYlnJQIBCwJ6MCK6QIvbHJMCKr2X ID Date Data Source [id number] 03/20/2021 08:10:00 PM EDT [facility] Name Value Range Interpretation Code Description Data Stephanie rce(s) Supporting Document(s) SARS coronavirus 2 RNA [Presence] in Res piratory specimen by CORDELL with probe detection NEGATIVE [facility] This lab was ordered by [facility] a nd reported by [facility]. ID Date Data Source [id number] 03/19/2021 10:46:48 AM EDT [facility] Name Value Range Interpretation Code Description Data Stephanie rce(s) Supporting Document(s) Consults [facility] LETDNl4yPmISPiJr20/CKPaeFYBdq5JkWDvxTFj0TJbhXXNmV6MmIDI4qR8wIMQ0ODmNZzRjVmNdOJM0 [facility] [file] ICAgICAgICAgICAgICAgICAgICAgICAgICAgICAgIC AgICAgICAgICAgICAgICAgICAgICAgICAgICAgICAgICAgICAgICAgICAgICAgICAgICAgDQogICAgIC AgICAgICAgICAgICAgICAgICAgICAgICAgICAgICAgICAgICAgICAgICAgICAgICAgICAgICAgICAgIC AgICAgICAgICAgICAgICAgICAgICAgICAgICAgICAg ICAgDQogICAgICAgICAgICAgICAgICAgICAgICAgICAgICAgICAgICAgICAgICAgICAgICAgICAgICAg ICAgICAgICAgICAgICAgICAgICAgICAgICAgICAgICAgICAgICAgICAgICAgDQogICAgICAgICAgICAg ICAgICAgICAgICAgICAgICAgICAgICAgICAgICAgIC AgICAgICAgICAgICAgICAgICAgICAgICAgICAgICAgICAgICAgICAgICAgICAgICAgICAgICAgDQogIC AgICAgICAgICAgICAgICAgICAgICAgICAgICAgICAgICAgICAgICAgICAgICAgICAgICAgICAgICAgIC AgICAgICAgICAgICAgICAgICAgICAgICAgICAgICAg ICAgICAgDQogICAgICAgICAgICAgICAgICAgICAgICAgICAgICAgICAgICAgICAgICAgICAgICAgICAg ICAgICAgICAgICAgICAgICAgICAgICAgICAgICAgICAgICAgICAgICAgICAgICAgDQogICAgICAgICAg ICAgICAgICAgICAgICAgICAgICAgICAgICAgICAgIC AgICAgICAgICAgICAgICAgICAgICAgICAgICAgICAgICAgICAgICAgICAgICAgICAgICAgICAgICAgDQ ogICAgICAgICAgICAgICAgICAgICAgICAgICAgICAgICAgICAgICAgICAgICAgICAgICAgICAgICAgIC AgICAgICAgICAgICAgICAgICAgICAgICAgICAgICAg ICAgICAgICAgDQogICAgICAgICAgICAgICAgICAgICAgICAgICAgICAgICAgICAgICAgICAgICAgICAg ICAgICAgICAgICAgICAgICAgICAgICAgICAgICAgICAgICAgICAgICAgICAgICAgICAgDQogICAgICAg ICAgICAgICAgICAgICAgICAgICAgICAgICAgICAgIC AgICAgICAgICAgICAgICAgICAgICAgICAgICAgICAgICAgICAgICAgICAgICAgICAgICAgICAgICAgIC FgYWc1H2umDMLyLFIrLB0xECt1Ml9+WTjWUzHpZQU6hnLrzH9FQG0tv0YoVNxfQNApx4DgXZi2QK7IXU TrWEpkLG5TKBrthk0HHILuVTQqeVBTy7fyWzTyXAB2 IXQcYpefPJ3YVDTyF3rlojPdWVNeXYXHEY6GJeTqD1LbgI44UOEMEn5+OSbfmmVtHstOXaK9HOFhh5Rw FFe8GH7TRPAfZjqim1FvUBraLXVUCAytDJ2UECL1LBR3RKGqGw9RSKFgR506esMaUD2PAc7BNyEuDS3p ho0GCOviVREfZmfLCav6PSdfTH4PnYQaOUhTu31pfO c5jiFauJGXJMgxNQCZBCRelX1Mg8SuQAXTUMBMQUJ5CPvvQo8xBKPmAGTaBlAsVCALJA7YKPBuOSPpdR ApGKZpINCWAL1UBLeiFVP7TeojihShzOVfTHbzMX6ROTDtywOkAXflHTWTVCj+Xr6GHC6rw1LfIRmsEK ArAY9lee3INOtPOmLhY9I7xPDgO6H3TFfnSr5XKRDi EDPgDORrIDZGXHyvFE4UJK2vaeL8SB3DrFPgFOAzULXglBZeXAl4R43xvFGyRJwiES8IXWO+Dillon+Pg0K EQKuNYNbKBHcCjFmPVVYXrGoW0YuL5VQe0DhN4WyPJ54pHqoxcLyVNlcQG9SWG6hTBHiRRKRTB6WuLEh mH9ubcGwFbDwWAPBCuSrA81juYZeSSYyIEU7BCAyDn 1KPDQgV0JkeaNyjAyctvArNYBiVLVYKR7AENgnzaUkrLLeaQdzWH08aXjeEJ9WWz6GZrXdYJ9ysq0LhZ FwAk7QNZCsCL2JAMTeWWQiKAWkWUK4RZJyJzIaWWqjUFXsYKVeVMF2RFLxDUZyIH9DWhHaKFJfILArFK WzAZUmPQRgsb0KQBWyZLQeUcjtAdXpOGOtREMrIZda DPObQPBcDKJ3ZTUtOQVzYO5AGkVqXQAnFWG1MJXeBXDvENLiry2NNLFiQBCuLmC5BVTkGYHqAGCoSZyz IMOgUQSiREKwZFRnFGYjHK9SPxGsWYJbYKEnADHzBMEhKCXofk8POPXeJBMdXeY3PGPtFOUzPWYjAKrz GHAqWJJ8IuJ8HGOyHQBcTX5QZeSaKQUnKPU7ZQCpXV QpGXRuso2BYWYbJDRsCUzrCjExLQEvHJPoUVnqGIPaZHR2Rle4HZDrNYZfTZ2SGlSwSTRnJNV1BFYwQQ UmVBVgly3XXKXjXNNsIeO2AVQhZEMeOWKxQGdaBIHzLGC6GTbhEFDtJDBsQA9UKfDtWZXvRWp9ZvCdXY ZsISDngi9LRJAsUYYwIKDoOXDyYOAuMMIhTPdlRQDw JRL2JNO6NUSoGLJmZQ1VNqJmEExmOOXGOfj1QBovC3z0HTHiIO6PP4Plk0ZfEPudNGJVVEgsHC4vaqZw SHSvLv8AE5dXRuk8ViHbPaS2RZr0QJTvQKtlBwc9CeC0ITTaFCS4UIItKY7gBGUsUaAxCti4NSh6LDI2 O5VsJZu3XUOuSiGmBxU0BRIrBpFlRJ0ZOc1WBwC3UPQ7zZGmMv2SEAI0UO1SHCWVA5XKMv== ID Date Data Source [id number] 03/16/2021 05:01:00 PM EDT [facility] Exam Number: [id number] OF EXAMINATIO N: 03/16/2021 15:29 EDTHISTORY: InjuryTECHNIQUE: [...] rce(s) Supporting Document(s) ID Date Data Source [id number] 03/16/2021 07:16:00 AM EDT [facility] Name Value Range Interpretation Code Description Data Stephanie rce(s) Supporting Document(s) LCOVID-19, [facility] NEGATIVE [facility] This lab was ordered by [facility] and reported by [facility]. ID Date Data Source [id number] 03/16/2021 08:04:00 AM EDT [facility] Name Value Range Interpretation Code Description Data Stephanie rce(s) Supporting Document(s) COVID-19, CORDELL NEGATIVE NEGATIVE [facility] Methodology: Isothermal Nucleic Acid Amp lification [...] Emergency Use Authorization. ID Date Data Source [id number] 03/16/2021 07:54:00 AM [facility] Name Value Range Interpretation Code Description Data Stephanie rce(s) Supporting Document(s) ETOH NONE DETECTED [facility] NONE DETECTED ID Date Data Source [id number] 03/16/2021 07:54:00 AM EDT [facility] Name Value Range Interpretation Code Description Data Stephanie rce(s) Supporting Document(s) GLU 98 mg/dL 70-110 [facility] Patients taking Sulfasalazine may have f alsely depressedGlucose levels. Patients taking Sulfapyridine may havefalsely elevated Glucose levels. Patients should be drawnfor Glucose before the initial administration of eitherdrug. BUN 15 mg/dL 7-23 [facility] CRE 0.644 mg/dL 0.500-1.300 [facility] GFR > 60 mL/min [facility] CHLORIDE 109 mmol/L 99-110 [facility] NA 137 mmol/L 136-147 [facility] POTASSIUM 3.7 mmol/L 3.5-5.1 [facility] TCO2 23 mmol/L 20-33 [facility] ANION GAP 8.7 10.0-20.0 [facility] CA 8.5 mg/dL 8.3-10.7 [facility] ALKALINE PHOS 120 U/L 45-117 [facility] TP 7.2 g/dL 6.0-7.8 [facility] ALB 3.6 g/dL 3.5-5.0 [facility] ESRD Dialysis patient Albumin reference range: 2.9-4.4 g/dL GL 3.6 g/dL 2.3-3.5 [facility] A/G 1.0 1.0-2.5 [facility] T. BILIRUBIN 0.3 mg/dL 0.1-1.1 [facility] [place] Total Bilirubin is n ot recommended forpatients undergoing treatment with eltrombopag (Promacta)due to the potential for falsely elevated results. ALTI 51 U/L 6-54 [facility] Patients taking Sulfasalazine and/or Sul fapyridine may havefalsely depressed ALT levels. Patients should be drawn forALT before the initial administration of either drug. AST 27 U/L 6-38 [facility] Patients taking Sulfasalazine and/or Sul fapyridine may havefalsely depressed AST levels. Patients should be drawn forAST before the initial administration of either drug. ID Date Data Source [id number] 03/16/2021 07:30:00 AM EDT [facility] Name Value Range Interpretation Code Description Data Stephanie rce(s) Supporting Document(s) WBC 9.75 x10E3/uL 4.0-10.5 [facility] RBC 4.13 x10E6/uL 4.20-5.40 [facility] Hemoglobin 12.2 g/dL 12.0-16.0 [facility] Hematocrit 36.4 % 37.0-47.0 [facility] MCV 88.1 fL 81.0-99.0 [facility] MCH 29.5 pg 27.0-31.0 [facility] MCHC 33.5 g/dL 32.7-35.6 [facility] RDW 12.1 % 11.5-14.0 [facility] Platelet count 263 x10E3/uL 150-450 [facility] ital MPV 9.9 fl 6.9-9.5 [facility] Neutrophils 70.3 % 34-64 [facility] Lymphocytes 23.7 % 25-45 [facility] Monocytes 5.2 % 1.7-10.6 [facility] Eosinophils 0.3 % 0.4-7.0 [facility] Basophils 0.2 % 0.1-2.0 [facility] Imm. Gran. 0.3 % 0.1-2.0 [facility] Abs. Neutro. 6.85 x10E3/uL 1.2-7.6 [facility] Abs. Lymph. 2.31 x10E3/uL 1.0-3.5 [facility] Abs. Will. 0.51 x10E3/uL 0.1-1.0 [facility] Eosin. 0.03 x10E3/uL 0.1-0.7 [facility] Abs. Baso. 0.02 x10E3/uL 0.0-0.1 [facility] Abs[facility] Imm. Gran. 0.03 x10E3/uL 0.0-0.1 [facility] ANRBC% 0 % 0 [facility] ID Date Data Source [id number] 03/16/2021 07:54:00 AM EDT [facility] Name Value Range Interpretation Code Description Data Stephanie rce(s) Supporting Document(s) ACETAMINOPHEN < 2.0 ug/mL 0-30 [facility] ID Date Data Source [id number] 03/18/2021 09:43:00 AM EDT [facility] MIXED VIC GROWN NO PATHOGENS ISOLATED Name Value Range Interpretation Code Description Data Stephanie rce(s) Supporting Document(s) ID Date Data Source [id number] 03/16/2021 06:30:00 AM EDT [facility] Name Value Range Interpretation Code Description Data Stephanie rce(s) Supporting Document(s) PCP VISTA NEG NEGATIVE [facility] MINIMUM LEVEL OF DETECTION IS 25 ng/ml BENZODIAZEPINES [facility]IMUM LEVEL OF DETECTION IS 200 ng/ml COCAINE VISTA NEG NEGATIVE [facility] MINIMUM LEVEL OF DETECTION IS 300 ng/ml AMPHETAMINES NEG NEGATIVE [facility] MINIMUM LEVEL OF DETECTION IS 1000 ng/ml BARBITURATES [facility]G [facility]GAT[facility] CUTOFF CONCENTRATION IS 200 ng/ml CANNABINOIDS [facility]G [facility]GAT[facility] CUTOFF CONCENTRATION IS 50 ng/ml METHADONE VISTA [facility]G [facility]GAT[facility] MINIMUM LEVEL OF DETECTION IS 300 ng/ml OPIATE VISTA NEG NEGATIVE [facility] MINIMUM DETECTION LEVEL IS 300 ng/ml ID Date Data Source [id number] 03/16/2021 06:11:00 AM EDT [facility] Name Value Range Interpretation Code Description Data Stephanie rce(s) Supporting Document(s) HCG QUAL URINE Negative Negative [facility] ID Date Data Source [id number] 03/16/2021 06:11:00 AM EDT [facility] Name Value Range Interpretation Code Description Data Stephanie rce(s) Supporting Document(s) URINE COLOR Yellow [facility] UAPR Cloudy [facility] UGLU Negative NEGATIVE [facility] URINE BILIRUBIN [facility] UKET Negative NEGATIVE [facility] USG 1.028 1.010-1.025 [facility] UBLO Negative NEGATIVE [facility] UpH 5.0 5.0-8.0 [facility] UPRO 1+ Negative [facility] UUB 1.0 mg/dL 0.2-1.0 [facility] UNIT Negative Negative [facility] ULEU Negative Negative [facility] ID Date Data Source [id number] 03/16/2021 06:11:00 AM EDT [facility] Name Value Range Interpretation Code Description Data Stephanie rce(s) Supporting Document(s) URINE RBC 3-5 RBCs/HPF NONE SEEN [facility] URINE WBC 3-5 WBCs/HPF NONE SEEN [facility] URINE BACTERIA Moderate NONE SEEN [facility] l A URINE CULTURE HAS BEEN ADDED TO THIS S [facility] URINE EPI. Moderate NONE SEEN [facility]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 FgNungW1A9NAWgJ9R7WFC4NZAoRS2qAMLJPs4+XKzdkDXydZwjYSLGQhRkUCT5INgbWGTGWh2K ID Date Data Source [id number] 03/15/2021 05:49:27 AM EDT [facility] Name Value Range Interpretation Code Description Data Stephanie rce(s) Supporting Document(s) Nursing Note [facility] CDLQNa0kPrSOTdOn38/WWIsbYTLbv0UoVBlqRKt0YWtqESTdL9GiSVC6vD1kKIG2EGcZHgCeYaXbQKF6 lbm [file] OSI2EDC7XpDxVX4TMm3ZYvY2OLO6rYRaJt1EJvM0TgMTPdVvUI3MHWu= ID Date Data Source [id number] 03/15/2021 12:37:56 AM EDT [facility] Name Value Range Interpretation Code Description Data Stephanie rce(s) Supporting Document(s) Nursing Note [facility] JNRLFu0aCgSOQjPg32/LIKrlJVGxa4RxKGroSHa4QByaIVIpW2SyHYP9oQ2qACZ7XUfSLmKmNiSyJUB8 lbm [file] ICAgICAgICAgICAgICAgICAgICAgICAgICAgICAgIC AgICAgICAgICAgICAgICAgICAgICAgICAgICAgICAgICAgICAgICAgICAgICAgICANCiAgICAgICAgIC AgICAgICAgICAgICAgICAgICAgICAgICAgICAgICAgICAgICAgICAgICAgICAgICAgICAgICAgICAgIC AgICAgICAgICAgICAgICAgICAgICAgICAgICAgICAN CiAgICAgICAgICAgICAgICAgICAgICAgICAgICAgICAgICAgICAgICAgICAgICAgICAgICAgICAgICAg ICAgICAgICAgICAgICAgICAgICAgICAgICAgICAgICAgICAgICAgICANCiAgICAgICAgICAgICAgICAg ICAgICAgICAgICAgICAgICAgICAgICAgICAgICAgIC AgICAgICAgICAgICAgICAgICAgICAgICAgICAgICAgICAgICAgICAgICAgICAgICAgICANCiAgICAgIC AgICAgICAgICAgICAgICAgICAgICAgICAgICAgICAgICAgICAgICAgICAgICAgICAgICAgICAgICAgIC AgICAgICAgICAgICAgICAgICAgICAgICAgICAgICAg ICANCiAgICAgICAgICAgICAgICAgICAgICAgICAgICAgICAgICAgICAgICAgICAgICAgICAgICAgICAg ICAgICAgICAgICAgICAgICAgICAgICAgICAgICAgICAgICAgICAgICAgICANCiAgICAgICAgICAgICAg ICAgICAgICAgICAgICAgICAgICAgICAgICAgICAgIC AgICAgICAgICAgICAgICAgICAgICAgICAgICAgICAgICAgICAgICAgICAgICAgICAgICAgICANCiAgIC AgICAgICAgICAgICAgICAgICAgICAgICAgICAgICAgICAgICAgICAgICAgICAgICAgICAgICAgICAgIC AgICAgICAgICAgICAgICAgICAgICAgICAgICAgICAg ICAgICANCiAgICAgICAgICAgICAgICAgICAgICAgICAgICAgICAgICAgICAgICAgICAgICAgICAgICAg ICAgICAgICAgICAgICAgICAgICAgICAgICAgICAgICAgICAgICAgICAgICAgICANCiAgICAgICAgICAg ICAgICAgICAgICAgICAgICAgICAgICAgICAgICAgIC AgICAgICAgICAgICAgICAgICAgICAgICAgICAgICAgICAgICAgICAgICAgICAgICAgICAgICAgICANCj w/tYElJ1amcPIbcaS4T1ajDo6JLe2ADV9nx0RsGAPvNZewxmIeAenPFrPrGKBkSvgGAqg8GJffEQ5NqG RhJ5YkC7WaCYiyDG0CVXEmSDDmzSMvANIvMOJeSbO7 ZGBvCZlfNW3RcJWmVNozBSYuGRChCS9JCPNpD456aeAgZJ5WSf8GZkTmOJ6ykb9AUsWpPIAmPbjIIts6 NLbcGU5WgZKmdUIjUPUrAUVTEmWiZ1ouh9IqFlKaRCUVMJosJL4Oi1PlvUCiNJb+Er1PWZ0qe1GhTEdv LXAbAP1ryh0WERjUCgSvW5RuvBycSR12bpLnhqowBa 82UMNpeKWKGOOwzmDFZWRxv6TkMJGVDLG0WEzqJp1tFZFuKHCoBlWrALJHWT3EQOEmLBFalSUvBPZbEJ OAFJ7YLFofFUB3UnbzlrKcjPHeMRaaUK1BHAVmirHfTgZnHDPXUNo+Mm4NKY0pn7VyBEgsUwMcZZ0cqq 4LIVkACmJnB7T3rIFtU7F9BRijRd4SXWWeWUOwBaHm CXTPKEnjZZ9SMC2vfbX6PY6HxHQxOVNvCMLkpMLaGBk9T13veBYfNSvvBX9NOWY+Dillon+Rq2MDNLjXTTy OJUgJaYeDJRAWnJtG1NuY7VOy9QvW3IqAF15yJfdxdPwZWyuSQ1AIU4xQVSjIRLRRI9SqJHgnN0zsvXe LROxKEPLSiKuX95rzQXjUDPtLWLuWSXwUa7CJFYeD4 ZwfpXnbVlpyrUwJRZyFUCEJD5WTTwmskUeoVKoqXktQH26kFpgHG8VRn1USgNdKU0ujk9BfMFbZf1HTV SnZq2OMXGaOWTnEBKfDVV5CSXgSsTmDPwfYUNxVDNyBWS8GDRwGSHyJA5GNcSoFAKyDqB3CJLjARSaFY Eecb0QQWTaDFLqMeX7PXYcJTBiDTRsPZqySSUfHODg XCB6NXNiYDPlGL2XPwYbVPKnUAR1HarzUOIsDQXabp1WQDXsLBFdJiO4PgZiDVFkAYWmTLovBLYsWBB4 RKPxLDPjGOWaRD9JEwNlHOOjIIQqEVHqJDGfGGRrmi9KCAAsXURbTLXzVoGqTQVuXALsVCipLGBbTVT5 Kdy6EHBqSERvKK6IYyYiRKMcHZL2XCLuTPOiMFSbig 4OKZGqHXQdNYf3HGGlAWKkRTXdVYkpSICkJXG3BUA3TWJbRREhCW3UUwHeJPPfHTv7FxUpYSWjVDDniq 5ABRUuSSFuATQfAHCgBHKoRCKoZFvrRJAoZYS1YJu9CTHkUXCeOP2IMqFcYQViRNfpGcGeXHIgXBSeqh 5GVDGiBPEgYRg3DsQvXZTaICTiRWlqZPLqTPKvGAMr KVIpJXHgFR9LJfTyZZSbYnVuUvGxQXPyALYmfp7OXLDeSYIjYHBqYTFmUWEuLECtLRioGWSfQWXpDFh3 GPUmUJElJD7KYuFtAJFlClKqXxRePJBnWHYegb2KIFDgYPSlEfj4JzAxNDNzKPNkHQhjODHwCALxLUD1 GAAmHKGeHM3NLpPiQFPaVwH0AOofVOHtQPIaea9TbM RfbCfqrq2BJNdOXt9KeBisPDR6CTjfAx2xyHMyVyRoIIIESh9BsiNuDMGmDNMUTAqnJYCuPNX6TvU2TJ b7SHQrFUx0ByZ0SlYeKVUpFEGcFDm4IifuRnH2SdZiHFj9IJblXKG9XZi8Qtf8EgGeHYQwFxW9YuP4L5 M+TF5lHEq+Mh3Vd4TazaZ9abQtNIewVaUzEq0MIFGAM9UOZw== ID Date Data Source [id number] 03/15/2021 12:37:46 AM EDT [facility] Name Value Range Interpretation Code Description Data Stephanie rce(s) Supporting Document(s) Care Plan [facility] YOBLPe2eBiZKJlOd34/URAnpIEShs1BlAPzfRKb9PWprDBMyQ5EiDWG3bO8pYNB7SCuBYpVbJmShJJS2 lbm [file] ID Date Data Source [id number] 03/15/2021 12:36:31 AM EDT [facility] Name Value Range Interpretation Code Description Data Stephanie rce(s) Supporting Document(s) Nursing Note [facility] CHNHNd1uYeFLDvKj32/XLVhgLMCls6ViPRboJGq9CEznEJGpX0NnWRZ4hV0yCCY9VHcNQqXtKnDfGYT0 lbm [file] 54Vuz/dPKdwFM/6jSnAt1F2lELC1kJCnz3ldKR7Utl6hsihYBwIq+cU/wYeh80/K60TteNyw58ml+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 diesel lGyLA97VMPPHUFRmez3uRpuw2BC3elp61ALCt+imnOy1cYDhDYJrn/PsTwFPSoriaVlJ+xXP/paVzBMa hEcEhyCYNbhxCJnUXStKqEVPGu3oONeTmfnpcGEJlP rRWSw7J3TFYr+Tw+BJ+0Ax7jo2CEU7DIAuyUmxHY8pLEroOQ7kgVhPoTXwXW+/urSII/apKxL2KghBqd PvvuLErWgkJPIqjq4s5KIQGvr0YMG7eovqIZaxykNao61RQRfVLnjZDvk+vPrMsW5x02t1uy6py8yEep MlP2RRA/ucJroPRw/noxvkZT98sUFMgoybFxH0sCY5 r5NIoxmh8AyAUTnZepucvLmuKnaMIUtPN7zFuAcyJ0mZrrHigFgPLOIYzhCkXQxE0ZYaYBLIKvFGsPzD vES2hPZR7KVpYyPG7JcVLWajqXGUjUKLGghq/dmET5MZN+RUr17uBMr1WZ6qFPmShoyMrWzbgk4Sgoa3 ttNz77LuGKxn4Q0Kv1Hpn5flsgc6Q1H/CtP4hmPRE8 epUFKB68m5h0UWp/RleOPMyXnLtdNkKHBhxEZ8RvF4jaVUcEbOnLH0ILukGaCCjZzMDMkE3dazyG3WLd fizW7tPy4fhCx2LUmOMvIPOYtCBj/ohlexm2COZxnBrPaMXyr03h3Z4ecjvDbdaK9Uw2QwzOIy3fF9RA 8m+/qrbS57pfVwnH3x7+trRkSNajLblvcq3btSPOqi +CF55Kx6maZt9G9xAQ6YSqOM6qkwl3szJOiSq3Hz2E1H7xQ/SQu37OfG9pfRZu6YRxHY/W8Rsr7XcdF4 Q1GLXpi+04s9ajoztTx3+f5acDVYNJrmikpqDhZZFTuRTRdvvHnSr2+QMFdkVayC1a/s2XBhYoSS2e07 4Cae2fv75giJd00Ii3SiFL66nE5S1a34H0+zpCU7ts [file] associate [file] WtWDZ5Kys8Pl5nQTEGXx9+VRnpyHKloMueZORWMtJ6STQ2RYcjQGCIZt3R ID Date Data Source [id number] 03/14/2021 04:35:03 PM EDT [facility] Name Value Range Interpretation Code Description Data Stephanie rce(s) Supporting Document(s) Nursing Note [facility] FRFZYk1nJuXLWuFi53/KWZpiMIRkb3IgHQymZVl3SFuxTCOsH8VcBAW2aH4cCLP2AVmFGlSwXsVfDKGh lbm [file] z5KN7MEYA4ONUbTs9JNADwTG0HCPIcBCUtYZCISwPp GHQzTbVtXIXrLONGLQztORNbJ9BgMLN3SLHrZa7+GPdwUW9XT6SbEAQ5KSv4IK8+OClsCL1YcRMAV0Wr bJZkVPkwX1JDJS1LVSL6VR2JrBItHR7AxFCPS5QjeGFiTp5jXEQrf7XqNg6hQ8UPXTYITUBvGQyfLNzv VZJmDCg6X9J3YRQzK7GBP681jYCoeHi4Gr9lJ0IGUQ hSHlGpLRdyVKzzUWXiMJw9D4K5OWJxW3PYO6RgNlXikwFaZ7A+CpKqTXFAKM4QQSCKRXo3J5W3fYQqK7 J9sMcYnID7HR7AWE5ZuTEqzZYii34+BkKPOcCaD4GNL4UTYC7JKSb1T6D3mTHqU3W4eTvXjCP2BR9ZYO 0ReIidqUEeBs8pBEgrNYB+Pn8HJi3CKoGsWB0aib5R PhDdCTEuBgpXWud4O2cleld7qCPzWwW2N1L2OuT6iOWgUS9GH9D5pKDbZPH6GCGhtYE+Cs1Wn5HkUCGc MTq8T3bcWNDbIAZtDiItkS76D++9sfjvzZT4E6e9KYXUzJPyxDsGdpEkE1zPMIU4y0M2KEy/Is7SOAR8 mCn8oIKgXTAjFQo6rU9hvEq0TrWrPR40ZPBcPKgwuN 9rNvu2P8Slc0DuRj0aNa1qeUZdLb3WTgYlRBD8cmEhPaTBQmC3jLqbhwxgRAH7Y8u4gGU2Gd08q7vpvi Zuw7OuNzL3OXqgDCRmHuCnmpNyRIZ3znMrkY1chyPyGz8UWPNlUHsgctXuWhNRHe4DKjHpGZ87ZqasqD 1ldGE+DQogICAgICAgICAgICAgICAgICAgICAgICAg ICAgICAgICAgICAgICAgICAgICAgICAgICAgICAgICAgICAgICAgICAgICAgICAgICAgICAgICAgICAg ICAgICAgICAgICAgICAgDQogICAgICAgICAgICAgICAgICAgICAgICAgICAgICAgICAgICAgICAgICAg ICAgICAgICAgICAgICAgICAgICAgICAgICAgICAgIC AgICAgICAgICAgICAgICAgICAgICAgICAgDQogICAgICAgICAgICAgICAgICAgICAgICAgICAgICAgIC AgICAgICAgICAgICAgICAgICAgICAgICAgICAgICAgICAgICAgICAgICAgICAgICAgICAgICAgICAgIC AgICAgICAgDQogICAgICAgICAgICAgICAgICAgICAg ICAgICAgICAgICAgICAgICAgICAgICAgICAgICAgICAgICAgICAgICAgICAgICAgICAgICAgICAgICAg ICAgICAgICAgICAgICAgICAgDQogICAgICAgICAgICAgICAgICAgICAgICAgICAgICAgICAgICAgICAg ICAgICAgICAgICAgICAgICAgICAgICAgICAgICAgIC AgICAgICAgICAgICAgICAgICAgICAgICAgICAgDQogICAgICAgICAgICAgICAgICAgICAgICAgICAgIC AgICAgICAgICAgICAgICAgICAgICAgICAgICAgICAgICAgICAgICAgICAgICAgICAgICAgICAgICAgIC AgICAgICAgICAgDQogICAgICAgICAgICAgICAgICAg ICAgICAgICAgICAgICAgICAgICAgICAgICAgICAgICAgICAgICAgICAgICAgICAgICAgICAgICAgICAg ICAgICAgICAgICAgICAgICAgICAgDQogICAgICAgICAgICAgICAgICAgICAgICAgICAgICAgICAgICAg ICAgICAgICAgICAgICAgICAgICAgICAgICAgICAgIC AgICAgICAgICAgICAgICAgICAgICAgICAgICAgICAgDQogICAgICAgICAgICAgICAgICAgICAgICAgIC AgICAgICAgICAgICAgICAgICAgICAgICAgICAgICAgICAgICAgICAgICAgICAgICAgICAgICAgICAgIC AgICAgICAgICAgICAgDQogICAgICAgICAgICAgICAg ICAgICAgICAgICAgICAgICAgICAgICAgICAgICAgICAgICAgICAgICAgICAgICAgICAgICAgICAgICAg ZHAiKNBjYOGwLPQqXMWoAWJlEMDwNDAjBPd7M2pzEMTjBZFjWE7wNMi8Iy3+MIxIWdWuECQ9hcOtoS8P UK7kt8PpDLxgPTFqj5WgKNz2KL2NAZFkPNxmEF1MDG tyoo3JOGGfGHYtyNCOa0ubDmKnTZD0JLApTvjuFG7BGUYtD8dajxCtVXZsSGRWHM2YQeFxJ1XhmB83PP ENCj4+KTcvbtThIeoSMjKfRJPga2EmJHk2FU8KIZUlCkroc4GcFkKdSHPWLUmnXV6UPTO9IWSoAUDbQo 4CFDPjL438wlRsQC0PDg9IYqSwYI5bxe6RSuVgMRBi IaqNYcq4XKhrFD8JaJKeDIoXnJDfgM6oHR3ltPNlWeyrDVejpmDjMkxrwLXqu2kud9ynZPCFZSB6TAah Ql4dNBQmQBB4OcG1IECCTX9BXMZcVDJrtMJkSUNiIPKCOZ5JRXkkLBZ6NyvpvgKhcPOxQNfrLW4QWFGz bnQgMjIgMCBSDQo+Yx4SMF6zn8LeFSfwPNGvVK9phl 0UZPaGMiAyH2W2rGAeI5W7YApzEw1QVSXaPNVcYbWlFXVYQQclZX5AFI2ubaU7TI7QhBThRZWoAPSgqC QpLYu1V31bmJXpEChqOR2WLNC+Dillon+Fr0JPRKiYOUoJYWyRuRjAZOZFsFhM1OnL1OSu6MfU9PlDN84eM uhheZjODyrZR2TZZ4nEEJsKUPHJY7NzSFrjX4oozFf FiYrEJQRZiVhX82gdRGbSGPrDZLkYKRgNr4DPNQfF1PbowIpkTajxjLmHWAdLAATPN1QNDyaqhSsmSOr lUsyUD65aMyrDN5HEe9DAqPuTE5txx6NoIAlYp6BQGOgFY9THOWoONQeTVKhJQA2LVHdHpWkRLhmFBTr DSKnNYQ3AOTlRRAhKF2JPdPpQCSfELg6AVecVTCiGC Tzft4LBSYcXMYfEPnfKvWiPIRjZTUrCSxyQZZvTWCuGGE5DDCtDJJbCI9WDzYzDRCnZMA5KfExEUZpML Lwxa6QYAGcNAZuTWksVURtCDAuENLbGVmfDIIyGJDcVuruFPGhBVKmZY6NEtEsYMZkKEM6ILKbGAAsDS Tvqv6PPSUeFSLkRzD4LWUcXGSuMLZfRGkbVRRsFZW1 FSB3XFUnWRAsXJ3SMcOmKKGlQAThCsVcOYYkRCAmes8MTAJmTFQaTZZfRlRfAOGgEJSsBIhcBCSiJNX9 YzZ7HJBbPHHkKJ9ZPkIpDSOgHTvzGIApDYInOECvmb8LPSJlJUTeDmW4SFPcPRRwUWFtZHpdYWVkYCX1 PXKhOWUzHMFaWB3DIdPwMZMkXYy2MmSdNIVkTFIsag 5INHJpDSUtCEAhTLAwYVNaZQRqPUbrITVaLYX9OECbLYBfQCClGS8RJoZwUWJkSDv7BcVuPSDnSALogt 0TSYSvUTKxQEV3MkTpZKFlTPPwCCioFGHqJTNiGNTqMFHbZJMeEL9DOoCxEMIeKuZ7HMWdEGQlGAGfed 3XPUAlZTZxWRH6IKVrEBQzLVJePVs3eqFdiBGnILa6 BH7AU3RibyLmRaDYEf1Ms191YZZ9EXJxYy9AO6wzBl7aNKGiNLLSRf7BXJy2UiK4PuG5FWX9BuirLyq6 YThiZTRiMDMzYTNjYjUwYmI+ZFyuRbCxXZc4EjFiMGOeNfqbNJRcWKFmElFfE1FbMUAxWm1aKTQWCw9+ RImxzZQmxNmmORILSgWaGqg0JRglMFGINf0X ID Date Data Source [id number] 03/14/2021 11:53:06 AM EDT [facility] Name Value Range Interpretation Code Description Data Stephanie rce(s) Supporting Document(s) Nursing Note [facility] CENLVk8jNhUFSpIr22/DUBjnAORnv8OzBScoQLm9NHzrRZVtZ2EiWIL1hT9pSHE0UHfCWjVyJcHjEINn lbm [file] H7ADCvZsZ8NzDaQvRzCwMrYlHoEG2VDj0PXkG3XSO8sKXmJa0YFuJxDSiVLzIlFT1SBEy= ID Date Data Source [id number] 03/14/2021 11:44:44 AM EDT [facility] Name Value Range Interpretation Code Description Data Stephanie rce(s) Supporting Document(s) Care Plan [facility] OEQMVc2aNrZXJtLo67/UITpgAAWbl1HgCBclUZa0DPmfCWOeL2LoUPY0fQ1wCYF3PSaIToCzEeDvRUQx lbm BcIfyWAyHyFXWdIkpWViFqLSbeYqwimZHvTZ0NwKS1MGMfC99nIOSkMXChL7GkPZo6QN5+KAprOJV9zk NilI3IDDXrHMft4nUUzi+w/8TGPykQGWtwBbfX3aGNzvaOp2LNjgP6FS4oa1MJ/qzKg5Te77yE5wMKnU QIJvecOoogfbBI9g4koBRdCMP/3kI8RkiKwRyPAqMn FmLVKxFCCwQzLCwWuFfJ/9yQpyNNMHsyZQvkBKqGFVaSoZZLBXNP5QtQFpDuIae7eLGmLKbws+4xAxcO yKqiGSz8pUsaxAlmBg4u6pV2pY1RV1dcurTaQRjmeFDtZ9PZNZNZPvv1pZ4YjdGCiGDnJDfjWJIqDB6a 8vSWDicqa8lfQ8lY5qCbYWnbxqj2xYeJK68nbWbuXi paYCR2wgCaHzH2rizt/GFHqegtlKlwtX6czG0BTiCrpLE+pjBIfhmA0m882G4FPMR4eodw01yIQ8Caf8 kz1YeZzsxGERrhbCemZMx7b5bZpR6JYZumf10h++Kx6ApCo+mPcbrXEGbmDDeaV/rudy++HVpGO8UcGN3 [file] ICAgICAgICAgICAgICAgICAgICAgICAgICAgICAgIC AgICAgICAgICAgICAgICAgICAgICAgICAgICAgICAgICAgICAgICAgICAgICAgICAgICAgICAgICAgDQ ogICAgICAgICAgICAgICAgICAgICAgICAgICAgICAgICAgICAgICAgICAgICAgICAgICAgICAgICAgIC AgICAgICAgICAgICAgICAgICAgICAgICAgICAgICAg ICAgICAgICAgDQogICAgICAgICAgICAgICAgICAgICAgICAgICAgICAgICAgICAgICAgICAgICAgICAg ICAgICAgICAgICAgICAgICAgICAgICAgICAgICAgICAgICAgICAgICAgICAgICAgICAgDQogICAgICAg ICAgICAgICAgICAgICAgICAgICAgICAgICAgICAgIC AgICAgICAgICAgICAgICAgICAgICAgICAgICAgICAgICAgICAgICAgICAgICAgICAgICAgICAgICAgIC AgDQogICAgICAgICAgICAgICAgICAgICAgICAgICAgICAgICAgICAgICAgICAgICAgICAgICAgICAgIC AgICAgICAgICAgICAgICAgICAgICAgICAgICAgICAg ICAgICAgICAgICAgDQogICAgICAgICAgICAgICAgICAgICAgICAgICAgICAgICAgICAgICAgICAgICAg ICAgICAgICAgICAgICAgICAgICAgICAgICAgICAgICAgICAgICAgICAgICAgICAgICAgICAgDQogICAg ICAgICAgICAgICAgICAgICAgICAgICAgICAgICAgIC AgICAgICAgICAgICAgICAgICAgICAgICAgICAgICAgICAgICAgICAgICAgICAgICAgICAgICAgICAgIC AgICAgDQogICAgICAgICAgICAgICAgICAgICAgICAgICAgICAgICAgICAgICAgICAgICAgICAgICAgIC AgICAgICAgICAgICAgICAgICAgICAgICAgICAgICAg ICAgICAgICAgICAgICAgDQogICAgICAgICAgICAgICAgICAgICAgICAgICAgICAgICAgICAgICAgICAg ICAgICAgICAgICAgICAgICAgICAgICAgICAgICAgICAgICAgICAgICAgICAgICAgICAgICAgICAgDQog ICAgICAgICAgICAgICAgICAgICAgICAgICAgICAgIC AgICAgICAgICAgICAgICAgICAgICAgICAgICAgICAgICAgICAgICAgICAgICAgICAgICAgICAgICAgIC VuHSNnLBHfHWi1L7dlYVWbPHSxZA7vRZd8Ze7+QAmMPkOrTED5bfZrdF1IAR0hp1VwYAvwQSYhq8OcWX c3JD4GSALkLHqtSW9OZTwent0QAJXwGXXtxBNSk3ew BqCvOQD0RVTgHjjyXJ2WZVFcH5wtwrRfFGGoIVFGXW0JIxKiA1AkxR25TFIGJt6+DQplbmRvYmoNCjI1 DFLim1LfCKd6EW8IVLYqIpmac1WsFsVgLWLJCMmgNF3YZUM3RMO4VWSlSk9HDFZkI785bsVpFO6THy0X NwIxOI7vzl9XBbXvPGLoLdaJYij0PHnpGI4ImXDcWP zOEZJvQPUqFU9tNnasWBksnnMwIddujVOho8jja0scZKOTNNM5AZlcKh4zLILrYDOqXvG4MKIMVF9TBD GvZTKreBAvMKSvGZGDSI0GOJnlELR7FqvhjuAoyFVlHDubKW0BQEKxnlLdMnMuWVTKZQy+Kg3TVO3dl9 GzFPwtDjYhNC3rkt9OIYsTRqVkD1P2hRBfB0A8IPpp Zn5OCYAjDMMzJsZzEKBJMMhjBD7VAX2ncjU4CF4BjABhBMSsRCZhuDUhHOh0M97uiLXsTDjiUW1KSSK+ Dillon+Rz0QIJNwVUFaMGCbYoDvXQEYGbKtN5JsZ9HBf8YwE2OgHL28aOsojhWaCGwmQT8MDE6fKHXbZMEB CN3XvDPnwY7ukhRjKUWmTSYNBfCyN19jnGUiYIJeHH A0NVBdAo3APAInZ1FgbkEzxFdxbcRfDLUuCFLNZM4UGSpqkfKyrBEtyDxfJT46wYntBC6UYy0CGeZwBQ 3lai9XzEHmDy5AXHWjVW6RYAKeLQHaEGIoGCY4DYXlCvHkYTjhWVXmWJLoLWO3EIApFEQkQD2NPrOyCV PmHiXjLvYiIWLoFSGqnd8FFLUyLHObTBd8AkVlAGIk AJYoSAulSAYiHBRkZWN1QHUbDSLhPQ3JMxYsPEKgVAYnAcXdYIMqRQNnys8IBDBgMYKpFCRbFzPwLJQq MXNxQCvfCGTqWUBqMrj1PFEmXAYtGT2EOfRiMILuDRY8XXTnAXJdMMDtgu7KMEXsSYYyRwe1KLSaZZVs XYMvONjmFCAoKJJcCzZ5SAHjZTXvFW5YPuUpMDKwWH W4AcTyWWHoHVQtkm8JQRCwGBQzTKGdJBZxGMFaWWKxLDbcIUDhEVF4GNQ0YUHjLFAbCU6PWbInLXEpJJ H0NPNxJHYbOYMhzd0GEPTsHTEeYzh5RqHdXDRjZAKmZTfvRTYnBIT9YeKiKZFgTIUlIR1QDcCeGLZrBI idViiwZWBnSCFcon5KVMGkTLYmMAXbTWTnRBEkGMWa CZlxWKVgOFJ6JQG2NALdIAAtYL7PXxTgJJFyPGh6DTGwJQQzLKUtln7DXKVyHXXpBRK4YtDiZEQiHBRe SUnlYBZfOHM6SMUxRJJuOSFpVP7PKjHtKKGdNfDiNTYxYOUtEUEnau3IZYQlZUBpJVBcZiDpBPVzTPLe SSfpYCGrAFAfGDk1MYCmRKKcBC8XZgUbDTOwUtM0FS RmWPGpZWMfzh5OAPHzVOSxBiU5GHXeREPkBFFyLPp3qeXqwWUoBGc6WD7AO9FeauOeUwhAZk2As837IN W2HZOdXz3AQ2moQg9sVDHnLYPOAh8LARf9VKT0JMHmKKB2EhD6UkPdPFneByJ6TwhuGlVmHWGoFpK+ID udYTz3TRG1WMz6FzB7PAUnMSV6UuepYHCsPFReVMNw PI1iQZWNMk5+XWemqHOmoYnsWTQZPwAvIuT7UVtoJWZAWn5Y ID Date Data Source [id number] 03/14/2021 11:35:44 AM EDT [facility] Name Value Range Interpretation Code Description Data Stephanie rce(s) Supporting Document(s) Nursing Note [facility] UVXURw3eWbCBLmLs65/SDRfcTFNnf4VgYBazHJp2RPctQSNkC7HjKEH1nN8hQEH2PWqBYgQcWqMyVKUo lbm [file] LYoaJg7FEEYVQ4NWCi== ID Date Data Source [id number] 03/14/2021 11:12:00 AM EDT [facility] Exam Number: [id number] Reported By: Maria De Jesus BARAJAS M.D. Signed By: Valeri BARAJAS M.D. Name Value Range Interpretation Code Description Data Stephanie rce(s) Supporting Document(s) ID Date Data Source [id number] 03/14/2021 10:21:29 AM EDT [facility] Name Value Range Interpretation Code Description Data Stephanie rce(s) Supporting Document(s) H&P [facility] LJGMNv8gPaNKVkZe34/XMMwkUVMki8XaNLmdKAc3VCaqPTOgV4AaHQY2uN3gCYI0EBxRSmJqZtNtDAZp lbm [file] yYJgCl4ULAE9FsXOPhSzBI5ZGRx= ID Date Data Source [id number] 03/14/2021 05:34:50 AM EDT [facility] Name Value Range Interpretation Code Description Data Stephanie rce(s) Supporting Document(s) Nursing Note [facility] RBRHCu2mVjSRXhOs21/WIMdsUANqr2InQXrtGVr0DUgcMEOoA7BrCQC1gR5yIXO5JIlITeIrWvMlFHPq lbm [file] o= ID Date Data Source [id number] 03/14/2021 01:22:47 AM EDT [facility] Name Value Range Interpretation Code Description Data Stephanie rce(s) Supporting Document(s) Nursing Note [facility] ZNCDHh4sMsHNVlGc69/OKQylKFNee8NwFCruQMi7APvqFZYhI7XoSZF4kI6vGFM2DTtRGxFxUmVkLMBg lbm [file] Pq7MRcR9DMA2sLNxLv7LRjDcCjFNSfVhUD6ACCe= ID Date Data Source [id number] 03/13/2021 10:37:10 PM EDT [facility] Name Value Range Interpretation Code Description Data Stephanie rce(s) Supporting Document(s) Nursing Note [facility] IPKECt6rBnAUSeVs50/FMBgnUTXbh5LoABpwTAz6IXljUOVjQ9UiLKZ0jB6aPBO8VKgYSaXfXsUsOFMj lbm [file] Hd6WBhO5ZZU1fHIwTt2KAoWdIJZZGyWqNL7QLQy= ID Date Data Source [id number] 03/13/2021 07:24:52 PM EDT [facility] Name Value Range Interpretation Code Description Data Stephanie rce(s) Supporting Document(s) Care Plan [facility] POYOAb0xQxWVAbPl15/RUOnsLMQan3LkQMfyAHk5FOhbAWVkK6VqGWA4dL2lIKL3EXlBXkWwTlEhSIAp lbm [file] 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+9D9OT7//+IJBGcvr3KQtdQfeyUC0zG0L4u1xwMtnDdy+p5xIlElLBAmtjGq1FMFmJNdz64r8RYou [file] DQo= ID Date Data Source [id number] 03/13/2021 06:53:54 PM EDT [facility] Name Value Range Interpretation Code Description Data Stephanie rce(s) Supporting Document(s) Nursing Note [facility] MPRMZa1nAcVANoSy32/OPHyoAGSob8HdTZbuNZs4TWkeCVKaW7IrJKC2vI1yIMG6TQcZMeBaBkFlZHAr lbm [file] AgICAgICAgICAgICAgICAgICAgICAgICAgICAgICAg ICAgICAgICAgICAgICAgICAgICAgICAgICAgICAgICAgICAgICAgICAgICAgICAgICAgICAgICAgICAg ICAgICAgICANCiAgICAgICAgICAgICAgICAgICAgICAgICAgICAgICAgICAgICAgICAgICAgICAgICAg ICAgICAgICAgICAgICAgICAgICAgICAgICAgICAgIC AgICAgICAgICAgICAgICAgICANCiAgICAgICAgICAgICAgICAgICAgICAgICAgICAgICAgICAgICAgIC AgICAgICAgICAgICAgICAgICAgICAgICAgICAgICAgICAgICAgICAgICAgICAgICAgICAgICAgICAgIC ANCiAgICAgICAgICAgICAgICAgICAgICAgICAgICAg ICAgICAgICAgICAgICAgICAgICAgICAgICAgICAgICAgICAgICAgICAgICAgICAgICAgICAgICAgICAg ICAgICAgICAgICANCiAgICAgICAgICAgICAgICAgICAgICAgICAgICAgICAgICAgICAgICAgICAgICAg ICAgICAgICAgICAgICAgICAgICAgICAgICAgICAgIC AgICAgICAgICAgICAgICAgICAgICANCiAgICAgICAgICAgICAgICAgICAgICAgICAgICAgICAgICAgIC AgICAgICAgICAgICAgICAgICAgICAgICAgICAgICAgICAgICAgICAgICAgICAgICAgICAgICAgICAgIC AgICANCiAgICAgICAgICAgICAgICAgICAgICAgICAg ICAgICAgICAgICAgICAgICAgICAgICAgICAgICAgICAgICAgICAgICAgICAgICAgICAgICAgICAgICAg ICAgICAgICAgICAgICANCiAgICAgICAgICAgICAgICAgICAgICAgICAgICAgICAgICAgICAgICAgICAg ICAgICAgICAgICAgICAgICAgICAgICAgICAgICAgIC AgICAgICAgICAgICAgICAgICAgICAgICANCiAgICAgICAgICAgICAgICAgICAgICAgICAgICAgICAgIC AgICAgICAgICAgICAgICAgICAgICAgICAgICAgICAgICAgICAgICAgICAgICAgICAgICAgICAgICAgIC AgICAgICANCiAgICAgICAgICAgICAgICAgICAgICAg ICAgICAgICAgICAgICAgICAgICAgICAgICAgICAgICAgICAgICAgICAgICAgICAgICAgICAgICAgICAg ICAgICAgICAgICAgICAgICANCjw/yJSoI4adpBFspzB0S5flWv8EMn5ENW1gr9GdPIDiUJpdykCkGjdZ MoXdRNZkLpzNRxw7HGffPL6EkOAjO8HeO9MmADymJH 9OAHBeDOOnfPOrYRMwYZGnHkQ6JZFtKZyaDQ3IoKDtAWvsWNViHVTgNL7BQQOwG784gxSjSD6WAu4QNn IgLU4cvu3PCxCcEWJiNgaWTfq7XXjgIV3IuSKkzQZoYnUpUAHFDuOrV0cph0WjKoWmGOSHNNrwWM7Gi7 VudCAxDQo+Lu9ECY5do5IcYNyhSwSaIG6cph1UOFyC MwUdG8MasItcPE43shRvclhjWx51SPEcuLTVd4AoVdOYU9C6LM4nIFTFOQA4XPnbXt5oELXdOKG9QhG0 VBDNEK6NHDUvIQOivTYzGHNrQMZCVT5VLZbiAMY3SjjhzmEpmLOwTXznFW1LLVXfikLvBgMxCVHUROv+ Mr2YLP3fp2TeRWflBUXyLT8nxi3BZMuLOaDyG5E7uM QnD5B7KJazBl2VLGPkPMZvWtNrHUPELKzdAP1QCK3almV2XI7VlZUsRJXaADFjgLEdOSo9C71zmEPkQF bmIH5LYKV+Dillon+Ed2ELFYtVHThRNGaFtZaENYGDjMyS2IaA4CRe3VnG9GoPA69jHlbziPcUQijEA5RSV 6aDFZlEWEAMF0AgMFalY8ymbAiCuGbBODSWeLwA32l uFTpFVGoZVEfZNTqPy9JTVTpY8QpzjYmdFqpilWcEEZqOXDXLJ7LXKmfqvJxdSTrgFmqEU57bVtrCO2R Db3LMaBrDJ8ovl7FuJNxEh2YFHVqBJ0LEKGfSXRxAQMeHLC5JYMkGiLkVKtaNESkYFNhDNA1QBZdHXUb OP3JJqUtQBLeELy2ZKbcFWVfKBYdqt0RYGVtPNZeFZ DzDBPzQEKmASOjJDrrFMQdSBQkNHM6WXGpDNIoBA8GKhWvGYCiVBEwBqvdDZUiUFSgop9ATCVrCBVkBn YnXlUgTYHbEHJeSKzbQBOfCQGyLkxeHVYrBCRvKU6MJmYpTGWhINI0QSOcQODwEDZujq1SECNuXTDtBv V4NyEfUDPkQXItIUcqKTRkZQZ7TpW2RAHaQMKvXI4I HwDhEXSwMYW9YxCoLVAwWHMrry5ISMPcAHFzNSXzLECvFEFwPJYyNVjdEXKfEYH7WxR7HVMvTEAwRN5M FtTwDTSmXZq0POGnVOImDJRypi8CQPXiASYtXog6NQHeHCJjXWWbYSdsFHJlJTY9FCM6XFPoBXCzSC9Y BvJdKUMfDIvmXpTgQCFzHFHxzw9OJAEfUKLkWLCmSo XpQNLxTRWwPIjkGRWvLPU4EGDgBGPhABZlNU8EEdGbCQCzJBt4LdJrMEObRPZlyo7LZEZcQPRvUUv3TA PfKQRiMLZgPUpmSQPqQIMdQVY8IGDhJXUqDN8SCuJcFCGmQnH1GMVuUPDjRISefb7ABAYwTJQoQRD0OF AnIDLuMTZjAOs4evPaeLCuLIh6FP9LK9QstaHoFyFZ Cq0Xa130YBC9BRXjOa0WZ6ppTe2vIPViBNPMMb6PNSm0PvgmQEFfG5O3QqHnMKRbTAK8ExLcNtU8JVsh NTNlODk+MRanIRR4BwAgAOmuK8I6AaT9BHO7ZYKuJZDyO9G0R3A2KW3eCMGADp9+DQpzdGFydHhyZWYN DyRmKVe8IGegCFPDXx5V ID Date Data Source [id number] 03/13/2021 05:56:16 PM EDT [facility] Name Value Range Interpretation Code Description Data Stephanie rce(s) Supporting Document(s) Nursing Note [facility] XABITq1bMgFXBjRw51/IZRtpHIZcm5NcQCboGLp1BIpsQCMeW5XpIBB2fU8tKPP2PZzRGsOlRtFxPSJt lbm [file] roving frame tender/VbYra/03XvIY3hjhq6skKWDnXAO6POuBei4v9r [file] OxUJqyHNI0E9BlPwE8IlLdQIHpAoZ+TX0zZTe+Qz9Yo0HhobN4zbPxCQsfBEK5Bp0GDPLTK2KCJg== ID Date Data Source [id number] 03/13/2021 05:15:24 PM EDT [facility] Name Value Range Interpretation Code Description Data Stephanie rce(s) Supporting Document(s) Nursing Note [facility] YDAJIv5rKlANKlPp48/ZZDeeHRLuv6HeGYmyZBx4DCezBZOpG1GzUUQ9uL7kEQK2VIbVQzEfWiInEJJq lbm [file] QKO0SYE6LcZaNL8ZYa2OVzD4XPO1tTMsTk2EXbPwCkePAtPcLR5GFFz= ID Date Data Source [id number] 03/13/2021 05:01:36 PM EDT [facility] Name Value Range Interpretation Code Description Data Stephanie rce(s) Supporting Document(s) Nursing Note [facility] XOJEUz3qQnAARgYf22/MAYowCOQuq3NtNAnpWWb3TUfeWIWwX1WpUZB7nB9wNEX3HLhDPwQqAxLsWGRf lbm [file] LtMR8YQHt= ID Date Data Source [id number] 03/13/2021 02:53:46 PM EDT [facility] Name Value Range Interpretation Code Description Data Stephanie rce(s) Supporting Document(s) Nursing Note [facility] ITHBMl1hSkLCRcVn32/NHFanODMst3LjTWhsFEa2XVmjXXFgX0DtBGM5uE5yRHM0WPiSQnOsEnZuJLGk lbm TuYcaRWhAjZGJmCjtBEzBgVRnvJsnhjUUzPZ9DmGS3CQVjP13dKNPeJNDqN5IkLBZ0EKM+Yh8GLLCsyD KoSM2JHnqL5U1Rayw0Vb5qkt4Cep+gMWyWVEff3vdqD1DmfkWYbpw4cO1IPNX0Aek7+Tupg94Zygmhlb V/ngYxopRNfKAQYNCNfqPRMzCm+e+hEAqfVOoX9n/1 i4Nwybk629iefM7ECt+H7f4Ug+TXW9RX3PnO/0lReh40ubPQUqOpUYRazzyTvR3MNC7Awpp0XpuVKBfr V62fqqft37xEN4AlC9kar6KrtSEVtrq5YMRLkO3ULZzd1ylSv2obxRy9cgTjKb8ZI7nK78bvcpq2x0Ea AByISQ1iH0wagrwdD9vlpw3OGeUWVX1tsSn22eGnDE WbUkTxn2ekAUgAdw+TicJJZyfCO7mDiYlC+ahoBSIDGKWeuQAD2pIFEDVTvabIdVQjQLIGr0r4iwo2Cj L40RzikB6eDaWyxu25iS0/1kXvuOYdaXqVdwBzl0YewBBRP/ALdE7lcnY3e66PRCE7LmjR2sattAHjSV sWGrTty6oazg8pFR7Nv+p6qeY9tPg4Ldpk5lznc6Fc A3NExdcHLC2x5Jb9tGg1mFgXljoUblS7uWmwl8UuV/P8ejX/+XsUndp//Nec/Dgc/Tul37D4cCcLm3eB MbeGiSaPaBFGKsuGt2TdlG6pE4jHfJi/bH0uz2eye6vAta6Lnndqo7P0wKGpL1RjKCv8WMLQ+Jues0Nh gSB1ueYFOrcJdHHgTVE1D2Lm8T5MikZrz33FY5+hardy [file] ICAgICAgICAgICAgICAgICAgICAgICAgICAgICAgICAgICAgICAgICAgICAgICAgICAgICAgICAgICAg ICAgICAgICAgICAgICAgICAgICANCiAgICAgICAgIC AgICAgICAgICAgICAgICAgICAgICAgICAgICAgICAgICAgICAgICAgICAgICAgICAgICAgICAgICAgIC AgICAgICAgICAgICAgICAgICAgICAgICAgICAgICANCiAgICAgICAgICAgICAgICAgICAgICAgICAgIC AgICAgICAgICAgICAgICAgICAgICAgICAgICAgICAg ICAgICAgICAgICAgICAgICAgICAgICAgICAgICAgICAgICAgICAgICANCiAgICAgICAgICAgICAgICAg ICAgICAgICAgICAgICAgICAgICAgICAgICAgICAgICAgICAgICAgICAgICAgICAgICAgICAgICAgICAg ICAgICAgICAgICAgICAgICAgICAgICANCiAgICAgIC AgICAgICAgICAgICAgICAgICAgICAgICAgICAgICAgICAgICAgICAgICAgICAgICAgICAgICAgICAgIC AgICAgICAgICAgICAgICAgICAgICAgICAgICAgICAgICANCiAgICAgICAgICAgICAgICAgICAgICAgIC AgICAgICAgICAgICAgICAgICAgICAgICAgICAgICAg ICAgICAgICAgICAgICAgICAgICAgICAgICAgICAgICAgICAgICAgICAgICANCiAgICAgICAgICAgICAg ICAgICAgICAgICAgICAgICAgICAgICAgICAgICAgICAgICAgICAgICAgICAgICAgICAgICAgICAgICAg ICAgICAgICAgICAgICAgICAgICAgICAgICANCiAgIC AgICAgICAgICAgICAgICAgICAgICAgICAgICAgICAgICAgICAgICAgICAgICAgICAgICAgICAgICAgIC AgICAgICAgICAgICAgICAgICAgICAgICAgICAgICAgICAgICANCiAgICAgICAgICAgICAgICAgICAgIC AgICAgICAgICAgICAgICAgICAgICAgICAgICAgICAg ICAgICAgICAgICAgICAgICAgICAgICAgICAgICAgICAgICAgICAgICAgICAgICANCiAgICAgICAgICAg ICAgICAgICAgICAgICAgICAgICAgICAgICAgICAgICAgICAgICAgICAgICAgICAgICAgICAgICAgICAg ICAgICAgICAgICAgICAgICAgICAgICAgICAgICANCj w/tOAxX3lyfIHcacO7T1syVe8VSl5DMI5ib4BeDPLkLEggvsMrFgsWIrAnUUZoMdaMKrt7AFgiUZ8NeD GgO4QyM3CsTNkvPU6AARKpAUWlhKSuHQZoLEVsFcG7JAZxLGzvRY0OrRHkRDluWDZnTWGkGZ6DXEWwK8 10meAoUY6RHe4LAbKzWP8kca1CNlPhHEFwIinRPyc3 JPvwMS9YjTGljSJzKJVhFGGOTuCsF5qzf2DbHdRqBZWSZTttKI1Jf9RvvYBrHBu+Gf4JIU9tf9FzNWkk ODVdQD5qrc2CRApQEeEaB1FeuBiiEY08ceHhmtaxXn92HRPkgECNo5AyFaAUB0J2LA8jVINGAZJ8KYkv Vj0iXGWjMJIwPwT1CPSSFJ7GWSVkFULxaVMzVTGuQM QBXU2QKAnhQZS1ElrljaOwsCMiQAzqXB1HVHEmirQaWlXnKWEQYPx+Tc8HFZ0fq0AvFYwqCqStYM2rjx 8PJQeUVcDqZ9O3aRNuO7G5VTlgJy5MVRRiOOMeAzLnRPWRAWeePM4ZEH1wptD2GH5ViKGgZZFwHQGtcN RcXLh5Q56vgJIiJOlxWT0OBUP+Dillon+Jg8ELJJsDVBg WUFsEbRxWHRUZmElW0YlU8FGb6NjH6LmQP60nQdjzcOuBJguGB9BJQ2wJZGiBKHKYD0PuAZsaE8xbfUx KGIjMIRWNzQdB05jaMLcPCYmGFVkSTDmHd5KQYRiN0QzidWevLybtlHkNFBeGHSMCM4MJVwnppHmwSJp tHfzOA38nBbyIB4YUz9OZdEcQR5iiw7LwJZkRz4JBF MmVe8FMRNbPYScQNDpYQA4YUHkAyQxTElrPEBzAJJaOZH6FRPqRHYtRV1MFsZtHTCiBnIbWPElQCJjIF Kdll7AOUVsILXsCiqvAWOlRXXoIZPiKGerJMOjJYUhIVX4CUQnVZUdZA5GBnZbZOUfMQCrTzJtNLVsYW Tewj1GFLCdCKXmMaIxAvGsYRUmMWEtUKjuRFTeIDK8 Wek4MZAmFFDdXS8BOxYqFVSrULV5DSTyLXRnVSTkir0IZRUmNCMnQRU9NUOwSDWtLTReVLurBIBsRIT5 QbJ9UQDzUGGeQU4EJlOvKAFaGBI6LzOmCCVzMUCgie6WTRTaWUUdOjQmQIFrEKZhVAUyPCptECDsOFC1 IoU8STLiVHUlGE4RHdLqOHRfQMg2KwXcZSTfIOLouz 4EQMWuMLGpYQx1BsMlYPFfHWJlGHzyXQElLMM4RFJeKKHaFZLjPV9RAfJxOMDmIRyjDogfEHFjJUZdwj 0BJTXmMHUxKARzYDYoNAJwSIHhARnrAXTgVRBjTql7GTYfBIGoHZ1GVaTzFMZxCrU5RhjiKHYmFMLsdf 4FTGEzWCXnIWv9NfVvXLWsMMZdQSkjBBOySOTtHJCy CJEtIQZwTM9EXxAiLYXxXoY8XzdcAMUqMKWyty6GJYErENFrFpCcYtSbTFSdPFRnZRxfBELnOWFgPQk3 WVWxGTAvOT1IUwJiFKLqHwJmZzGoPHYhNPUkcm3RqHRvsDpena3JUPkGMm9VfVmeAFG0BRbgCx6onIEq MeVjICUBEn9ZpsAuNZNxIOMXULriJNXcEDStTWUaIF TdJjAeUzOtGmVaAkXhUFQpJNVvBRA5RJP6IgN2LBYsDyVxQFYkWQWmN1FhQyM3ELM0AYXtWGRcOkpnAT Y+RO5fGPg+Cg9Jq3PlvaG2geKaKBniYiS6TZ6OLSNAQ9NIRw== ID Date Data Source [id number] 03/13/2021 02:24:18 PM EDT [facility] Name Value Range Interpretation Code Description Data Stephanie rce(s) Supporting Document(s) Care Plan [facility] QPFGXc8rLbWYVlJl80/SETejSSUrj1IjJYcgSQh8LNklUIMqR8RdZOQ3cZ5aOZZ3EMyOBxSwLzPjMKRe lbm [file] o+0aaSNXVswRXg0K8tc+supervisor transferring and boxing/HIvLLltdtVtdirlIpEr2+5d5ci19auaPVIUTZwQpAlQnCFnchUcUeJ3c [file] Territory Sales Representative+mQX1brXp4AOkmJq0Glh7cGqa7c0uE/KvQ4cgr0g [file] AgICAgICAgICAgICAgICAgICAgICAgICAgICAgICAg ICAgICAgICAgICAgICAgICAgICAgICAgICAgICAgICAgICAgICAgICAgICANCiAgICAgICAgICAgICAg ICAgICAgICAgICAgICAgICAgICAgICAgICAgICAgICAgICAgICAgICAgICAgICAgICAgICAgICAgICAg ICAgICAgICAgICAgICAgICAgICAgICAgICANCiAgIC AgICAgICAgICAgICAgICAgICAgICAgICAgICAgICAgICAgICAgICAgICAgICAgICAgICAgICAgICAgIC AgICAgICAgICAgICAgICAgICAgICAgICAgICAgICAgICAgICANCiAgICAgICAgICAgICAgICAgICAgIC AgICAgICAgICAgICAgICAgICAgICAgICAgICAgICAg ICAgICAgICAgICAgICAgICAgICAgICAgICAgICAgICAgICAgICAgICAgICAgICANCiAgICAgICAgICAg ICAgICAgICAgICAgICAgICAgICAgICAgICAgICAgICAgICAgICAgICAgICAgICAgICAgICAgICAgICAg ICAgICAgICAgICAgICAgICAgICAgICAgICAgICANCi AgICAgICAgICAgICAgICAgICAgICAgICAgICAgICAgICAgICAgICAgICAgICAgICAgICAgICAgICAgIC AgICAgICAgICAgICAgICAgICAgICAgICAgICAgICAgICAgICAgICANCiAgICAgICAgICAgICAgICAgIC AgICAgICAgICAgICAgICAgICAgICAgICAgICAgICAg ICAgICAgICAgICAgICAgICAgICAgICAgICAgICAgICAgICAgICAgICAgICAgICAgICANCiAgICAgICAg ICAgICAgICAgICAgICAgICAgICAgICAgICAgICAgICAgICAgICAgICAgICAgICAgICAgICAgICAgICAg ICAgICAgICAgICAgICAgICAgICAgICAgICAgICAgIC ANCiAgICAgICAgICAgICAgICAgICAgICAgICAgICAgICAgICAgICAgICAgICAgICAgICAgICAgICAgIC AgICAgICAgICAgICAgICAgICAgICAgICAgICAgICAgICAgICAgICAgICANCiAgICAgICAgICAgICAgIC AgICAgICAgICAgICAgICAgICAgICAgICAgICAgICAg ICAgICAgICAgICAgICAgICAgICAgICAgICAgICAgICAgICAgICAgICAgICAgICAgICAgICANCjw/eHBh E4glqMHwcmY6E4utBn5TFw6EYG7cx6WyNUUiEEpdqbHpNzsYJmPzEVKwUahKMii9PVhwMF1ZgTAqB1Ih D2NuMMijMF1PDNJvWWRrqLIrJXTcFHVnZnA3FREdAE szKH2OwXMlYMueDURyQTMtYqQwUBKaLI2QHHVaV439crNpAl6AXu9UUoFhLW2tds0ALkyaAZMkPuaEDz g5OBaqOH1PzYVesJFmLADhMPIEJjGwG5put5CdMbcrAUEQDWupOO3Qm3IdvSOqRRb+Ig8NEI9uv4YsOH nkFJTwAB0cyj8IYIpKIuYnV4GueVwaAXXtefQpSSmq ziXoiEVEz1SeNiUMA0P2IO6sVWSQUNO9AFnkBo6hPBMcXGGdIoSlKLPPOJ5FTGZrKLJzgLIzPKRgWXBQ XE1XPDnyNRC6EyrhdfUezOKzYJniFV3FDNPtolNqPbbcLMYRMIl+Oc4XSM9gw5YoWUkfQEHmSJ4xmc0L NQtTElNtJ2S8rFDuK9Y4KJpvEk1RXIWlKQCoByPdQH LZCWtbKX8BXR9bxzO4EE1XkWXfKIEkGWRisTClLUq4Y08ohPBgEIcuGS6UUEX+Dillon+Xy3FPYPrBMSkHR NdXuUeKYVXDdWhD6DiK3WSa0ZkJ3LcMY95xXdfbxLoZCpdCF4TQN3kNDUzJQAXYP6HmOJsuR7bdzNaAt QwWEPVUhSrN97puZJoNSYrKUR2RHCdKo3KCOXqI2Oi ezZqrVlrofDtZOIuIKMFWW6EJErsnkMgzCTaiEduVU71oTeeSB2QBp7OKwYuNF6nxi6KhLCxKy4IFPHv BO8TCHZyJXDpJNTxNKI4HVItBrJcGXgqJPObUSYnLMG8OFMzPRHiCS1CNaVxMPYqMrT5HFsrGUWuDOTr ib6ZUWEfUZUiUHL9IHKpFJGxEEJmWYmuHYAdIMRjTG U0CDQdFNVyAE6GGgQlLIEjBSI9QSbcPPDeHPBnqv5AHGDrSQTvNgbaXlWaILVoXCYrCDuxBMLdMIF5TZ idJBQrRTFaBE1ADqRhIQUkOTJkFUDwEHMqTXUqaf7HJWYtSJEmQLM3BPJcFRPhJWEnSGchWDKtHKW4YI L5CPHnMJKqQN0NTbUiKPPjQQY4DVZpZEDbZOMptr0M WZScIYMqXaUgTYEyDABqGMWpOTswPKPbWBV3Tle1NSScQKCsVD9CTzHvKIEqRHV0WGFwEQEgBAAxfl4E COVlJQVoVFEhGGZiPBUrHMHsKBpgRPOzPVF8FkO5IALbZRKhFX0UNlTxSDSrSTq2OPYrEHAmKACyvb7T JNPxILYhZBE7WUTqHKAwBDLwZOtmEXPoWJBxBpRxEK AvWHLaOL2WVxKuGNGwGlKdTYOkPKXyAEYigr9DSMSpJEWkAIE1FWZfWHOvNPDtWLsiRXLiESCfSWP5YS CdVPOiMH5QPrKsHAIeLwJ4WQmiAHTwWLRbfh0JBTTqRJOqVmV2EKXyXKPnJMIwXKsqWUIbAELsQIU2WK TwSTJjWQ6KYySnDAUmXcPtYFCqOYDtZOUzyt6QFWRe YSOvOLd0XCDbGGWuWTHmGFplIAIhWOD9GKV5IKFcUNWiSV5BPxVbSGIkFqL4FZOlABIhPOBiax3TiNOh uCctrt6GWMnNOi0ZyFozVONtMWthFi1dwLUpPOBoABQDFw0PjrMnCVIoMHJRUOhfJSZyAVYvTgSuUNva GmAmG7X1DVc3WBBtKia7QgLaAre8J7T7HkQ2CMMhGV P6CCBbAGUyDPImFVssDDUqUbL9CaLgAGRzIvH+KV8lVOl+Ml8Qf5ZtjgA0twCmCWpiMZEfFC4VRMQOX9 YNCg== ID Date Data Source [id number] 03/13/2021 02:22:43 PM EDT [facility] [facility] Name Value Range Interpretation Code Description Data Stephanie rce(s) Supporting Document(s) Nursing Note [facility] AXWQZm8hPwFYRoUi88/MBRwdEINhx0UmJPpsBSo0UWzcZQAkE5ElFSI0fG3dPGS2BBfDRvSqVuLxFNGr lbm [file] ID Date Data Source [id number] 03/13/2021 11:15:10 AM EDT [facility] Name Value Range Interpretation Code Description Data Stephanie rce(s) Supporting Document(s) ED Triage Notes [facility] ZHOYTe0kRuTDHaIb13/KFOnfZULyo3PrIWdnIBq9ZXvyYHWmL4ZwOQA4vV7vBPD6DMzURfMgPoAjHRRh lbm [file] AgICAgICAgICAgICAgICAgICAgICAgICAgICAgICAgICAgICAgICAgICAgICAgICAgICAgICAgICAgIC WoSFQxTPBjEFAfDHMtAPYiLEIoJIVbTQTzIBLfMWQiRVVmKZ8PGZNcNNRaILPjHPQuWWAiCHVaEYTrZH AgICAgICAgICAgICAgICAgICAgICAgICAgICAgICAg QZXmLUAnKKGnOYPgGDDdITYmNUWgDAOxZLPpXCOpYYKfVIRuTJPqPEKmKOZzOM9PTLGxUZGoCRTwMQHh ICAgICAgICAgICAgICAgICAgICAgICAgICAgICAgICAgICAgICAgICAgICAgICAgICAgICAgICAgICAg GMKxSFAcQINaXYVvDAKpMLQuHHTeOHCpXPQkOO4XRU AgICAgICAgICAgICAgICAgICAgICAgICAgICAgICAgICAgICAgICAgICAgICAgICAgICAgICAgICAgIC PwEXByRCCiLYLdIVQjDIJnJVJfHRIrYVVeXUMwITQgQRGrRNVeAL1WWIXqYWYnIXKkPHUuFGBnKBJpUL AgICAgICAgICAgICAgICAgICAgICAgICAgICAgICAg BZNgNAPyEHInXNUsLHJvPLOrHHWiYNAzBDYnNWTkANYxORVaETKyMGTxOTSjCKCwHT8EWHHxBGAoQJEk ICAgICAgICAgICAgICAgICAgICAgICAgICAgICAgICAgICAgICAgICAgICAgICAgICAgICAgICAgICAg ICAgICAgICAgICAgICAgICAgICAgICAgICAgICAgIA 0KICAgICAgICAgICAgICAgICAgICAgICAgICAgICAgICAgICAgICAgICAgICAgICAgICAgICAgICAgIC YfCYMwFKHgGHGnHWHgCQIoABUhKYZlPCJyONUcOHZhQLFlDOJlUJUsKA8TFZKnWWWcCSIbYJKqOWNdXA AgICAgICAgICAgICAgICAgICAgICAgICAgICAgICAg NEKnQQHlWRBwCRNzFTAtRYMuGCEhRJNcNGLwVTLzXABxNVHqVJViOFOnHYItDIBgQJDjBY6PHKXoUZHw ICAgICAgICAgICAgICAgICAgICAgICAgICAgICAgICAgICAgICAgICAgICAgICAgICAgICAgICAgICAg ICAgICAgICAgICAgICAgICAgICAgICAgICAgICAgIC LaUR0LWHPmBTMhVPFhTQHnPDAkNSKkFBAqKZKuEHNdICBgPEVvMMLoKMJjQHZaPHDdGCSqQCMeRRPkQQ VvIWNwSDLsLZJpRRCvIHHhZXVkGKCoFTHlAEErVTPdVXHoYXJiGGNrIABtXM5SYG76kHLco4P3DMEtQV 0ndyc/Sj4QMDfeasVbbAGrKX7BHdWnLD6azd5MLiHi VQ0vdq5WBIrXBrSbF6F9fVIsDGFvYIDTWaWoG72gJWxxAk96EYrhJBFqAvZoJLc9Gi1SUqWnM2haBMXr DhT8REWyOjNwASajEG8Ic4CajJUyPLq+Rj4LWS4ye7NxDSnbCaRkIC5cqy8UKZiYIiDaR3PfmpR2VDHd ENIiLs0LIRUuWAQxkHAcDaZbFSYRViDoK6PixU91GU ENCj4+RLpbzrZrYfuNElPtFEZzk8CoSMl9YP5OVMOmNYq5dXDwKZQyPSMnVVepYJ4qjSRzKJQ3IATwdH HjJTZrzbR1kE62yQKsAKTBTSP3EUqzFw2gKNFxCNOwHtCgNZUFKM3RZVVmUCDxxPYtQQXeHTYWRA0RFT hqVHN8IjxrntImeHMtURooZH9AKHMhozZmXyPeCVDF DQo+Mh3SQS5no7CjTOqjVIEtPT8xam1TPDbHXnWgG2H3mHMeR3H0FUtzVd4IPIWaDHKjUyWeRMKHSTpl CL5DXR1gffY1FJ4EwKToWDSbDZKnfZPgDYi1R32lvLDrTYhsCL6HVFV+Dillon+Az6FNXPnAZVaGPSlVqEr MOXKRxAgH7QkL3HNo5ObR1DpAA23eTpychXmQQwzBJ 0YUZ0vUJUbAPTFEB5OpZUfwI1yyoXzPqXaGYVIEeRdI01clALkJYEvLHBcKQHbGs7EJQPlK7XmxmZliQ gukzQrTPXwGBRSVM0JVFfgxdZwfAOgnMbdPW20mNhtWI4FFj8CTdXoCS4pyt3PzFHxKg4QWAWhAD5UBC VuNSWzZCRwTCM8ABLaJrMgNRobMGZtMLPrEAJ3YNUu RLGiQL4ZMxZfCZTjHEs8EpjeLCCwLIMylp0IHVBkGPQkPGGyGYOaGHSiSVApHWfoRHWnJHHeJAA5KYSb WCLtTG1JFqDhDOZgNPRyNBdeZUCcHXZijc5HRLVnILDgZEJjDdNcRYGsBUJvYInxPEOrHTAbVJJiVVOm WLWaDN3QGcZqATEbLWG8JpUkWCFaERTzbk2ODSMsKH OwZra8RkZqJPIrTXMdVAwiAZPrBUQvKSQ9XFBqCEApHH7CFhIbTLXaXDQxHODcLEXcEKBtnp2BXGOoHK WsCER3WFSvQJGkPZTuQJylPPCtACY8BqV2EVWcBMWbIR7ZQeXnAWOnLDA4OBXoUJTeDJQraj7GAJByRD KwTdU3IURiZQPyXFIjQAonRMVxOGE0Nul0RMBrHYWr ZS8CHuGmGCYnEQc7SAUeMQNhXJDkdq6ZUAXzTHOuTNP5SdIqLLLfSUSmDPrsZXNhMBA8HfieCXPaSSQo DN4KAgDoGNJhIMv0RWAzRHXyJZOvea0MLOHbRHYoFZP1UXErWQJgCJOmSWfqBWFnDKKiVqf2UWQmRWQk OY9LVtFxGPOiSpM0RaQuUVAfVZWfpq2XRPAyBZHiZD wkGJMcYGBfGNKvZEz0jlClkHZjDLr8JU5GM8PeqpTvWtISBe5Lg989ZBQ0LJLxLy7WX4hlMo7rNKEqOA QPBu4RYOp4ZwydUYFlDLPnUdLoVHLyM9O6DvT7DNN4WFCfPMB4CyG+OUw2MFQ8BeVrPMMwYdUjTILkIT siBRk3YkceDAIhTWF8Yt6kGJVRLd9+RRgznJLegFzhHFEVRpKnZFO7DZbiHKIEPa2J ID Date Data Source [id number] 03/11/2021 08:16:00 PM EDT [facility] Name Value Range Interpretation Code Description Data Stephanie rce(s) Supporting Document(s) SARS coronavirus 2 RNA [Presence] in Res piratory specimen by CORDELL with probe detection NEGATIVE [facility] This lab was ordered by [facility] a nd reported by [facility]. ID Date Data Source [id number] 03/05/2021 09:30:00 PM EDT [facility] Name Value Range Interpretation Code Description Data Stephanie rce(s) Supporting Document(s) Respiratory specimen severe acute respir atory syndrome coronavirus 2 (SARS-CoV-2) RNA Negative (qualifier value) [facility] This lab was ordered by [facility] and reported by . ID Date Data Source [id number] 03/05/2021 10:26:00 PM EDT [facility] First test? [facility] re? UNKNOWNSymptomatic per CDC? UNKNOWNIf yes date of onset? 03/05/21Hospitalized? UNKNOWNICU? UNKNOWNResident in congregated care? ex fdc, [facility] YES? UNKNOWN Name Value Range Interpretation Code Description Data Stephanie rce(s) Supporting Document(s) SARS-CoV-2 RNA Negative Normal (applies to non-numeric r esults) [facility] Negative results should be treated as [...] Certificate of Accreditation. Factsheets for healthcare providers: https://www.fda.gov/media/797305/download Factsheets for patients: https://www.fda.gov/media/479319/download The ID NOW Instrument is a rapid molecular in vitro diagnostic test utilizing an isothermal nucleic acid amplification technology intended for the qualitative detection of nucleic acid from the SARS-CoV-2 viral RNA. THIS IS A STATE REPORTABLE COMMUNICABLE DISEASE. Manual entry verified by Aysha Andrade 03/05/212224 ID Date Data Source [id number] 03/05/2021 10:15:[address] [facility] Value Range Interpretation Code Description Data Stephanie rce(s) Supporting Document(s) Troponin I 0.000-0.056 Normal (applies to non-numeric resu lts) [facility] ID Date Data Source [id number] 03/05/2021 10:15:[address] [facility] Value Range Interpretation Code Description Data Stephanie rce(s) Supporting Document(s) Acetaminophen 10.0-30.0 Below low normal [facility] ID Date Data Source [id number] 03/05/2021 10:15:[address] [facility] Value Range Interpretation Code Description Data Stephanie rce(s) Supporting Document(s) Magnesium 1.8-2.4 Normal (applies to non-numeric resul ts) [facility] ID Date Data Source [id number] 03/05/2021 10:15:00 PM EDT [facility] Name Value Range Interpretation Code Description Data Stephanie rce(s) Supporting Document(s) Sodium 142 mmol/L 136-145 Normal (applies to non-numeric resul ts) [facility] Potassium 3.5-5.1 Normal (applies to non-numeric resul ts) [facility] Chloride 107 mmol/L 98-107 Normal (applies to non-numeric resul ts) [facility] Carbon Dioxide CO2 21-32 Normal (applies to non-numer ic results) [facility] Anion Gap 5.0-16.0 Normal (applies to non-numeric resul ts) [facility] BUN 17 mg/dL 7-18 Normal (applies to non-numeric results) [facility] Creatinine,Serum 0.7-1.2 Normal (applies to non-numeric results) [facility] GFR >60 Normal (applies to non-numeric results) [facility] Glucose Level 93 mg/dL 60-99 Normal (applies to non-numeric re sults) [facility] Reference range is only applicable when patient is fasting Note the following drug interference: Sulfasalazine Sulfapyridine Can see falsely depressed Can see falsely elevated result with up to 17% results with up to 11% decrease in measurement increase in measurement Recommend patients be collected for this test prior to administration of either drug. Calcium 8.5-10.1 Normal (applies to non-numeric resul ts) [facility] Bilirubin,Total 0.1-1.9 Normal (applies to non-numeric results) [facility] SGOT(AST) 21 U/L 15-37 Normal (applies to non-numeric resul ts) [facility] Note the following drug interference: Sulfasalazine Sulfapyridine Can see falsely depressed Can see falsely elevated result with up to 10% results with up to 10% decrease in measurement increase in measurement Recommend patients be collected for this test prior to administration of either drug. SGPT(ALT) 43 U/L 12-78 Normal (applies to non-numeric resul ts) [facility] Note the following drug interference: Sulfasalazine Sulfapyridine Can see falsely depressed Can see falsely elevated result with up to 29% results with up to 10% decrease in measurement increase in measurement Recommend patients be collected for this test prior to administration of either drug. Alkaline Phosphatase 113 U/L 38-126 Normal (applies to non-num deena results) [facility] can increase Alkaline Phosp le vels up to 2 times the normal adult value. Normal values for children and adolescents are 2 to 3 times the normal adult value. Total Protein 6.0-8.2 Normal (applies to non-numeric re sults) [facility] Albumin Level 3.4-5.0 Normal (applies to non-numeric re sults) [facility] ID Date Data Source [id number] 03/05/2021 10:15:00 PM EDT [facility] Name Value Range Interpretation Code Description Data Stephanie rce(s) Supporting Document(s) Salicylate 2.8-20.0 Below low normal [facility] ID Date Data Source [id number] 03/05/2021 10:14:00 PM EDT [facility] Name Value Range Interpretation Code Description Data Stephanie rce(s) Supporting Document(s) Ethanol Less than 10.0 Normal (applies to non-numeric r esults) [facility] ID Date Data Source [id number] 03/05/2021 09:36:00 PM EDT [facility] Name Value Range Interpretation Code Description Data Stephanie rce(s) Supporting Document(s) White Blood Count 3.5-10.5 Above high normal [facility] Red Blood Count 3.90-5.00 Normal (applies to non-numeric results) [facility] Hemoglobin 12.0-15.5 Normal (applies to non-numeric resul ts) [facility] Hematocrit 34.9-44.5 Normal (applies to non-numeric resul ts) [facility] Mean Corpuscular Volume 81.2-95.1 Normal (applies to non- numeric results) [facility] Mean Corpuscular Hgb 25.6-32.2 Normal (applies to non-num deena results) [facility] Mean Corpuscular Hgb Conc 32.0-36.0 Normal (applies to no n-numeric results) [facility] Red Cell Distribution Width 11.9-15.5 Normal (appli es to non-numeric results) [facility] Platelet Count 258 x10 3/uL 150-450 Normal (applies to non-numeric results) [facility] Mean Platelet Volume 9.4-12.4 Normal (applies to non-num deena results) [facility] Neutrophils% (Auto) 31.0-71.0 Normal (applies to non-nume frank results) [facility] Lymphocytes% (Auto) 20.0-55.0 Normal (applies to non-nume frank results) [facility] Monocytes% (Auto) 4.0-12.0 Normal (applies to non-numeri c results) [facility] Eosinophils% (Auto) 1.0-8.0 Below low normal [facility] Basophils% (Auto) 0.0-2.0 Normal (applies to non-numeri c results) [facility] Immature Granulocytes% (Auto) 0.0-2.0 Normal (alexander lies to non-numeric results) [facility] Neutrophils# (Auto) 1.50-6.20 Above high normal [facility] Lymphocytes# (Auto) 1.20-4.00 Normal (applies to non-nume frank results) [facility] Monocytes# (Auto) 0.00-0.90 Normal (applies to non-numeri c results) [facility] Eosinophils# (Auto) 0.00-0.50 Normal (applies to non-nume frank results) [facility] Basophils# (Auto) 0.00-0.20 Normal (applies to non-numeri c results) [facility] Immature Granulocytes# (Auto) 0.00-7.00 No rmal (applies to non-numeric results) [facility] ID Date Data Source [id number] 03/05/2021 10:00:00 PM [facility] Collected By: Nurse Initials: ayleen wyatt Collected: 1999 Collected By: Nurse Initials: ayleen wyatt Collected: 1999 Collected By: Nurse Initials: ayleen wyatt Collected: 1999 Name Value Range Interpretation Code Description Data [facility] rce(s) Supporting Document(s) RBC,Urine None Seen [facility] WBC,Urine None Seen [facility] Squamous Cells,Urine None Seen [facility] Amorphous Sediment,Urine None Seen [facility] Bacteria,Urine None Seen [facility] ital ID Date Data Source [id number] 03/05/2021 10:00:00 PM [facility] Collected By: Nurse Initials: ayleen wyatt Collected: 1999 Collected By: Nurse Initials: ayleen wyatt Collected: 1999 Collected By: Nurse Initials: ayleen wyatt Collected: 1999 Name Value Range Interpretation Code Description Data [facility] rce(s) Supporting Document(s) Color,Urine Colorl-Dk Y Normal (applies to non-numeric res ults) [facility] Clarity,Urine Clear Normal (applies to non-numeric re sults) [facility] Specific [place],Urine 1.005-1.030 [facility] pH,Urine 5.0-8.0 Normal (applies to non-numeric resul ts) [facility] Protein,Urine Negative [facility] Glucose,Urine Negative Normal (applies to non-numeric re sults) [facility] Ketones,Urine Negative Normal (applies to non-numeric re sults) [facility] Blood,Urine Negative Normal (applies to non-numeric resu lts) [facility] Bilirubin,Urine Negative Normal (applies to non-numeric results) [facility] Urobilinogen,Urine 0.2-1.0 Normal (applies to non-numer ic results) [facility] Leukocyte Esterase,Urine Negative Normal (applies to non -numeric results) [facility] Nitrite,Urine Negative Normal (applies to non-numeric re sults) [facility] ID Date Data Source [id number] 03/05/2021 10:00:00 PM EDT [facility] Collected By: Nurse Initials: ayleen wyatt Collected: 1999 Collected By: Nurse Initials: ayleen Barry me Collected: 1999 Collected By: Nurse Initials: ayleen wyatt Collected: 1999 Name Value Range Interpretation Code Description Data Stephanie rce(s) Supporting Document(s) HCG,Ur Negative Normal (applies to non-numeric results) [facility] ID Date Data Source [id number] 03/05/2021 08:25:00 PM EDT [facility] Name Value Range Interpretation Code Description Data Stephanie rce(s) Supporting Document(s) UDS Benzodiazepines Screen Negative Normal (applies to n on-numeric results) [facility] UDS Cocaine Screen Negative Normal (applies to non-numer ic results) [facility] UDS Ampetamine Screen Negative Normal (applies to non-nu meric results) [facility] UDS Cannabinoids Screen Negative Normal (applies to non- numeric results) [facility] UDS Opiates Screen Negative Normal (applies to non-numer ic results) [facility] UDS Barbiturates Screen Negative Normal (applies to non- numeric results) [facility] Threshold Levels Benzodiazepine 200 ng/mL Cocaine 300 ng/mL Amphetamines 1000 ng/mL Cannabinoids (THC) 50 ng/mL Opiates 300 ng/mL Barbiturates 200 ng/mL All positive findings are presumptive and unconfirmed. Confirmation of positive results are performed only at request of provider. Unconfirmed results must not be used for non-medical purposes (i.e. preemployment and legal purposes) ID Date Data Source [id number] 03/04/2021 03:33:00 PM EDT [facility] Exam Number: [id number] Reported By: - JEREMIAH PEOPLES MD Signed By: JEREMIAH PEOPLES MD Name Value Range Interpretation Code Description Data Stephanie rce(s) Supporting Document(s) ID Date Data Source [id number] 03/03/2021 08:53:00 PM EDT [facility] Name Value Range Interpretation Code Description Data Stephanie rce(s) Supporting Document(s) HECM-QbN-1-result [employer] XPERT XPRESS SARS-CO V-2 REALTIME PCR ASSAY HAS EMERGENCY USE AUTHORIZATION (EUA) FROM THE FDA. [facility] This lab was ordered by [facility] and reported by [facility]. ID Date Data Source [id number] 03/03/2021 02:50:00 AM [facility] Name Value Range Interpretation Code Description Data Stephanie rce(s) Supporting Document(s) Respiratory specimen severe acute respir atory syndrome coronavirus 2 (SARS-CoV-2) RNA Negative (qualifier value) [facility] This lab was ordered by [facility] and reported by . ID Date Data Source [id number] 03/03/2021 03:11:00 AM EDT [facility] First test? [facility]NOW[facility]mployed in [facility] re? UNKNOWNSymptomatic per [facility]? UNKNOWNHospitalized? UNKNOWNICU? UNKNOWNResident in congregated care? ex fdc, [facility] UNKNOWN? UNKNOWN Name Value Range Interpretation Code Description Data Stephanie rce(s) Supporting Document(s) SARS-CoV-2 RNA Negative Normal (applies to non-numeric r esults) [facility] Negative results should be treated as [...] Certificate of Accreditation. Factsheets for healthcare providers: https://www.fda.gov/media/185683/download Factsheets for patients: https://www.fda.gov/media/989379/download The ID NOW Instrument is a rapid molecular in vitro diagnostic test utilizing an isothermal nucleic acid amplification technology intended for the qualitative detection of nucleic acid from the SARS-CoV-2 viral RNA. THIS IS A STATE REPORTABLE COMMUNICABLE DISEASE. Manual entry verified by Marion Thompson 03/03/21310 ID Date Data Source [id number] 03/03/2021 02:26:00 AM T [facility] Name Value Range Interpretation Code Description Data Stephanie rce(s) Supporting Document(s) UDS Benzodiazepines Screen Negative Normal (applies to n on-numeric results) [facility] UDS Cocaine Screen Negative Normal (applies to non-numer ic results) [facility] UDS Ampetamine Screen Negative Normal (applies to non-nu meric results) [facility] UDS Cannabinoids Screen Negative Normal (applies to non- numeric results) [facility] UDS Opiates Screen Negative Normal (applies to non-numer ic results) [facility] UDS Barbiturates Screen Negative Normal (applies to non- numeric results) [facility] Threshold Levels Benzodiazepine 200 ng/mL Cocaine 300 ng/mL Amphetamines 1000 ng/mL Cannabinoids (THC) 50 ng/mL Opiates 300 ng/mL Barbiturates 200 ng/mL All positive findings are presumptive and unconfirmed. Confirmation of positive results are performed only at request of provider. Unconfirmed results must not be used for non-medical purposes (i.e. preemployment and legal purposes) ID Date Data Source [id number] 03/03/2021 02:21:00 AM [facility] Collected By: Nurse Initials: [place] Time Collected: 157 Collected By: Nurse Initials: [place] Time Collected: 157 Name Value Range Interpretation Code Description Data Stephanie rce(s) Supporting Document(s) Color,Urine Colorl-Dk Y Normal (applies to non-numeric res ults) [facility] Clarity,Urine Clear Normal (applies to non-numeric re sults) [facility] Specific [place],Urine 1.005-1.030 [facility] pH,Urine 5.0-8.0 Normal (applies to non-numeric resul ts) [facility] Protein,Urine Negative Normal (applies to non-numeric re sults) [facility] Glucose,Urine Negative Normal (applies to non-numeric re sults) [facility] Ketones,Urine Negative Normal (applies to non-numeric re sults) [facility] Blood,Urine Negative Normal (applies to non-numeric resu lts) [facility] Bilirubin,Urine Negative Normal (applies to non-numeric results) [facility] Urobilinogen,Urine 0.2-1.0 Normal (applies to non-numer ic results) [facility] Leukocyte Esterase,Urine Negative Normal (applies to non -numeric results) [facility] Nitrite,Urine Negative Normal (applies to non-numeric re sults) [facility] ID Date Data Source [id number] 03/03/2021 02:21:00 AM EDT [facility] Collected By: Nurse Initials: [place] Time Collected: 0158 Collected By: Nurse Initials: [place] Time Collected: 0158 Name Value Range Interpretation Code Description Data Stephanie rce(s) Supporting Document(s) HCG,Ur Negative Normal (applies to non-numeric results) [facility] ID Date Data Source [id number] 03/03/2021 02:54:00 AM [facility] Name Value Range Interpretation Code Description Data Stephanie rce(s) Supporting Document(s) D-Dimer,Quant 0.19-0.50 Normal (applies to non-numeric re sults) [facility] The negative predictive value for DVT [...] on anticoagulant therapy. ID Date Data Source [id number] 03/[facility]21 [facility] Value Range Interpretation Code Description Data Stephanie rce(s) Supporting Document(s) Ethanol Less than 10.0 Normal (applies to non-numeric r esults) [facility] ID Date Data Source [id number] 03/03/2021 01:55:00 AM EDT [facility] Name Value Range Interpretation Code Description Data Stephanie rce(s) Supporting Document(s) Acetaminophen 10.0-30.0 Below low normal [facility] ID Date Data Source [id number] 03/03/2021 01:55:00 AM [facility] Name Value Range Interpretation Code Description Data Stephanie rce(s) Supporting Document(s) Sodium 143 mmol/L 136-145 Normal (applies to non-numeric resul ts) [facility] Potassium 3.5-5.1 Normal (applies to non-numeric resul ts) [facility] Chloride 107 mmol/L 98-107 Normal (applies to non-numeric resul ts) [facility] Carbon Dioxide CO2 21-32 Normal (applies to non-numer ic results) [facility] Anion Gap 5.0-16.0 Normal (applies to non-numeric resul ts) [facility] BUN 20 mg/dL 7-18 Above high normal [facility] Creatinine,Serum 0.7-1.2 Normal (applies to non-numeric results) [facility] GFR >60 Normal (applies to non-numeric results) [facility] Glucose Level 101 mg/dL 60-99 Above high normal [facility] Reference range is only applicable when patient is fasting Note the following drug interference: Sulfasalazine Sulfapyridine Can see falsely depressed Can see falsely elevated result with up to 17% results with up to 11% decrease in measurement increase in measurement Recommend patients be collected for this test prior to administration of either drug. Calcium 8.5-10.1 Normal (applies to non-numeric resul ts) [facility] Bilirubin,Total 0.1-1.9 Normal (applies to non-numeric results) [facility] SGOT(AST) 22 U/L 15-37 Normal (applies to non-numeric resul ts) [facility] Note the following drug interference: Sulfasalazine Sulfapyridine Can see falsely depressed Can see falsely elevated result with up to 10% results with up to 10% decrease in measurement increase in measurement Recommend patients be collected for this test prior to administration of either drug. SGPT(ALT) 44 U/L 12-78 Normal (applies to non-numeric resul ts) [facility] Note the following drug interference: Sulfasalazine Sulfapyridine Can see falsely depressed Can see falsely elevated result with up to 29% results with up to 10% decrease in measurement increase in measurement Recommend patients be collected for this test prior to administration of either drug. Alkaline Phosphatase 116 U/L 38-126 Normal (applies to non-num deena results) [facility] can increase Alkaline Phosp le vels up to 2 times the normal adult value. Normal values for children and adolescents are 2 to 3 times the normal adult value. Total Protein 6.0-8.2 Normal (applies to non-numeric re sults) [facility] Albumin Level 3.4-5.0 Normal (applies to non-numeric re sults) [facility] ID Date Data Source [id number] 03/03/2021 01:55:00 AM EDT [facility] Name Value Range Interpretation Code Description Data Stephanie rce(s) Supporting Document(s) Salicylate 2.8-20.0 Below low normal [facility] ID Date Data Source [id number] 03/03/2021 01:55:00 AM EDT [facility] [facility] Name Value Range Interpretation Code Description Data Stephanie rce(s) Supporting Document(s) Magnesium 1.8-2.4 Normal (applies to non-numeric resul ts) [facility] ID Date Data Source [id number] 03/03/2021 01:55:00 AM EDT [facility] Name Value Range Interpretation Code Description Data Stephanie rce(s) Supporting Document(s) Troponin I 0.000-0.056 Normal (applies to non-numeric resu lts) [facility] ID Date Data Source [id number] 03/03/2021 01:19:00 AM EDT [facility] Name Value Range Interpretation Code Description Data Stephanie rce(s) Supporting Document(s) White Blood Count 3.5-10.5 Above high normal [facility] Red Blood Count 3.90-5.00 Normal (applies to non-numeric results) [facility] Hemoglobin 12.0-15.5 Normal (applies to non-numeric resul ts) [facility] Hematocrit 34.9-44.5 Normal (applies to non-numeric resul ts) [facility] Mean Corpuscular Volume 81.2-95.1 Normal (applies to non- numeric results) [facility] Mean Corpuscular Hgb 25.6-32.2 Normal (applies to non-num deena results) [facility] Mean Corpuscular Hgb Conc 32.0-36.0 Normal (applies to no n-numeric results) [facility] Red Cell Distribution Width 11.9-15.5 Normal (appli es to non-numeric results) [facility] Platelet Count 274 x10 3/uL 150-450 Normal (applies to non-numeric results) [facility] Mean Platelet Volume 9.4-12.4 Below low normal [facility] Neutrophils% (Auto) 31.0-71.0 Normal (applies to non-nume frank results) [facility] Lymphocytes% (Auto) 20.0-55.0 Normal (applies to non-nume frank results) [facility] Monocytes% (Auto) 4.0-12.0 Normal (applies to non-numeri c results) [facility] Eosinophils% (Auto) 1.0-8.0 Below low normal [facility] Basophils% (Auto) 0.0-2.0 Normal (applies to non-numeri c results) [facility] Immature Granulocytes% (Auto) 0.0-2.0 Normal (alexander lies to non-numeric results) [facility] Neutrophils# (Auto) 1.50-6.20 Above high normal [facility] Lymphocytes# (Auto) 1.20-4.00 Normal (applies to non-nume frank results) [facility] Monocytes# (Auto) 0.00-0.90 Normal (applies to non-numeri c results) [facility] Eosinophils# (Auto) 0.00-0.50 Normal (applies to non-nume frank results) [facility] Basophils# (Auto) 0.00-0.20 Normal (applies to non-numeri c results) [facility] Immature Granulocytes# (Auto) 0.00-7.00 No rmal (applies to non-numeric results) [facility] ID Date Data Source [id number] 03/02/2021 11:08:00 AM EDT [address] CONSULTPATIENT NAME: YARELI HATCH MR#: [id number] PHYSICIAN:AUTHOR: Colleen SMITHBogdan DATE: RM#: ERPATIENT : 00HistoryHistory of Presenting IllnessPatient is 20-year-old female, currently single, lives at [facility], pastpsych history of borderline personality disorder, depression disorder andschizoaffective disorderChief complaint: Patient presented with suicidal ideationHistory of present illness: Patient was seen along with nurse practitionerduring this course of assessment. [facility] people they do not know how to do their job and to calmher down. She was somewhat upset and that is the reason she said that she wassuicidal but she is no longer suicidal. And she wanted to be discharged backto [facility]. However upon asking how she is going to deal with the situationoutside where patient stated that she feels comfortable talking and having ameeting with [facility] staff tomorrow and try to solve the situation as well. Shestated that she was not suicidal, she wants to go back to [facility] and get some rest, she was also [...] rce(s) Supporting Document(s) ID Date Data Source [id number] 03/02/2021 04:06:00 AM EDT [facility] Name Value Range Interpretation Code Description Data Stephanie rce(s) Supporting Document(s) SALICYLATE < 1.7 mg/dL 0.0-20.0 [facility] ID Date Data Source [id number] 03/02/2021 04:06:00 AM EDT [facility] Name Value Range Interpretation Code Description Data Stephanie rce(s) Supporting Document(s) ACETAMINOPHEN < 2.0 ug/mL 0-30 [facility] Date Data Source [id number] 03/02/2021 04:06:00 AM EDT [facility] Name Value Range Interpretation Code Description Data Stephanie rce(s) Supporting Document(s) ETOH NONE DETECTED [facility] NONE DETECTED ID Date Data Source [id number] 03/02/2021 04:06:00 AM EDT [facility] Name Value Range Interpretation Code Description Data Stephanie rce(s) Supporting Document(s) GLU 120 mg/dL 70-110 [facility] Patients taking Sulfasalazine may have f alsely depressedGlucose levels. Patients taking Sulfapyridine may havefalsely elevated Glucose levels. Patients should be drawnfor Glucose before the initial administration of eitherdrug. BUN 16 mg/dL 7-23 [facility] CRE 0.685 mg/dL 0.500-1.300 [facility] GFR > 60 mL/min [facility] CHLORIDE 111 mmol/L 99-110 [facility] NA 141 mmol/L 136-147 [facility] POTASSIUM 3.6 mmol/L 3.5-5.1 [facility] TCO2 18 mmol/L 20-33 [facility] ANION GAP 15.6 10.0-20.0 [facility] CA 8.5 mg/dL 8.3-10.7 [facility] ALKALINE PHOS 118 U/L 45-117 [facility] TP 7.5 g/dL 6.0-7.8 [facility] ALB 3.7 g/dL 3.5-5.0 [facility] ESRD Dialysis patient Albumin reference range: 2.9-4.4 g/dL GL 3.8 g/dL 2.3-3.5 [facility] A/G 1.0 1.0-2.5 [facility] T. BILIRUBIN 0.2 mg/dL 0.1-1.1 [facility] [place] Total Bilirubin is n ot recommended forpatients undergoing treatment with eltrombopag (Promacta)due to the potential for falsely elevated results. ALTI 43 U/L 6-54 [facility] Patients taking Sulfasalazine and/or Sul fapyridine may havefalsely depressed ALT levels. Patients should be drawn forALT before the initial administration of either drug. AST 21 U/L 6-38 [facility] Patients taking Sulfasalazine and/or Sul fapyridine may havefalsely depressed AST levels. Patients should be drawn forAST before the initial administration of either drug. ID Date Data Source [id number] 03/02/2021 03:12:00 AM EDT [facility] [place] Name Value Range Interpretation Code Description Data Stephanie rce(s) Supporting Document(s) WBC 9.90 x10E3/uL 4.0-10.5 [facility] RBC 4.15 x10E6/uL 4.20-5.40 [facility] Hemoglobin 12.4 g/dL 12.0-16.0 [facility] Hematocrit 37.0 % 37.0-47.0 [facility] MCV 89.2 fL 81.0-99.0 [facility] MCH 29.9 pg 27.0-31.0 [facility] MCHC 33.5 g/dL 32.7-35.6 [facility] RDW 12.4 % 11.5-14.0 [facility] Platelet count 243 x10E3/uL 150-450 [facility] ital MPV 9.9 fl 6.9-9.5 [facility] Neutrophils 61.6 % 34-64 [facility] Lymphocytes 29.1 % 25-45 [facility] Monocytes 7.2 % 1.7-10.6 [facility] Eosinophils 1.3 % 0.4-7.0 [facility] Basophils 0.3 % 0.1-2.0 [facility] Imm. Gran. 0.5 % 0.1-2.0 [facility] Abs. Neutro. 6.10 x10E3/uL 1.2-7.6 [facility] Abs. Lymph. 2.88 x10E3/uL 1.0-3.5 [facility] Abs. Will. 0.71 x10E3/uL 0.1-1.0 [facility] l Abs. Eosin. 0.13 x10E3/uL 0.1-0.7 [facility] Abs. Baso. 0.03 x10E3/uL 0.0-0.1 [facility] Abs. Imm. Gran. 0.05 x10E3/uL 0.0-0.1 [facility] ANRBC% 0 % 0 [facility] ID Date Data Source [id number] 03/02/2021 03:28:00 AM EDT [facility] [place] Name Value Range Interpretation Code Description Data Stephanie rce(s) Supporting Document(s) PCP VISTA NEG NEGATIVE [facility] MINIMUM LEVEL OF DETECTION IS 25 ng/ml BENZODIAZEPINES NEG NEGATIVE [facility] al MINIMUM LEVEL OF DETECTION IS 200 ng/ml COCAINE VISTA NEG NEGATIVE [facility] MINIMUM LEVEL OF DETECTION IS 300 ng/ml AMPHETAMINES NEG NEGATIVE [facility] al MINIMUM LEVEL OF DETECTION IS 1000 ng/ml BARBITURATES NEG NEGATIVE [facility] al CUTOFF CONCENTRATION IS 200 ng/ml CANNABINOIDS [facility] CUTOFF CONCENTRATION IS 50 ng/ml METHADONE VISTA NEG NEGATIVE [facility] al MINIMUM LEVEL OF DETECTION IS 300 ng/ml OPIATE VISTA NEG NEGATIVE [facility] MINIMUM DETECTION LEVEL IS 300 ng/ml ID Date Data Source [id number] 03/02/2021 03:15:00 AM EDT [facility] Name Value Range Interpretation Code Description Data Stephanie rce(s) Supporting Document(s) HCG QUAL URINE Negative Negative [facility] [place] [place] [facility] [place] Date Data Source [id number] 03/02/2021 03:15:00 AM EDT [facility] Name Value Range Interpretation Code Description Data Stephanie rce(s) Supporting Document(s) URINE COLOR Yellow [facility] UAPR Cloudy [facility] UGLU Negative NEGATIVE [facility] URINE BILIRUBIN [facility]GATIVE [facility] UK[facility] Trace NEGATIVE [facility] USG 1.028 1.010-1.025 [facility] UBLO Negative NEGATIVE [facility] UpH 5.0 5.0-8.0 [facility] UPRO Negative Negative [facility] UUB 1.0 mg/dL 0.2-1.0 [facility] UNIT Negative Negative [facility] ULEU Negative Negative [facility] ID Date Data Source [id number] 03/02/2021 11:27:00 AM EDT [facility] [place] Physician DocumentationClaxton-Naveen Hinkle edical CenterName: Yareli DuvallAge: 20 yrsSex: FemaleDOB: 2000MRN: [id number] Date: 03/02/2021Time: 02:30Account#: [id number] MD: NONE, - Per PatientED Physician Esteban Argueta Summary:03/02/21 11:12Discharge OrderedLocation: Home Self Care afProblem: an ongoing problem afSymptoms: are unchanged afCondition: Stable afDiagnosis- Adjustment disorder, unspecified afFollowup: af- With: Private Physician- When: 1 week- Reason: Recheck today's complaintsDischarge Instructions:- ADJUSTMENT DISORDER af- Discharge Summary Sheet ww0Ltcdq:- Medication Reconciliation af- Medication Reconciliation Form - 2nd Copy afHPI:02/2202:50 This 20 yrs old White Female presents to ER via Police with gr6vshimlvznf of Psych Problem.02:50 Associated signs and symptoms: Pertinent negatives: abdominal pain, gu0zwtmd pain, fever, headache, nausea, shortness of breath, [...] denies any other problems or any other complaints..MEDIA TRAFFIC MANAGER:02:35 LMP N/A - Irregular menses dv8Gdpobtiilc:- Allergies: Haldol; Risperdal;- Home Meds:1. ibuprofen 400 [...] Temp 97.7; Pulse Ox 96% ; Weight kj1320.33 kg; Height 5 ft. 7 in. (170.18 cm);11:27 BP 124 / 76; Pulse 88; Resp 20; Temp 98; Pulse Ox 98% on R/A; fbg02:35 Body Mass Index 36.02 (104.33 kg, 170.18 cm) jw5MDM:02:40 Patient medically screened. th406:41 Data reviewed: vital signs, nurses notes, lab test result(s). ED ol4ykrnqf: Patient remained stable in the ER. Patient [...] Order name: Medically Cleared for Eval by-Psychosocial, Prep Manager th4(.PSA); Complete Time: 07:27Dispensed Medications:No medications were administeredSignatures:Dispatcher [employer] Anshul Loving MD MD afHowland, Todd, MD MD [id number] Mark RN RN js8Kqaqu, Ratna RN RN kk3 Name Value Range Interpretation Code Description Data Stephanie rce(s) Supporting Document(s) ID Date Data Source [id number] 03/02/2021 11:27:00 AM EDT [facility] [place] Nurse's NotesClaxton-Naveen Medical Tootie terName: Yareli DuvallAge: 20 yrsSex: FemaleDOB: 2000MRN: [id number] Date: 03/02/2021Time: 02:30Account#: [id number] MD: NONE, - Per PatientDiagnosis: Adjustment disorder, unspecifiedPresentation:02/2202:32 Presenting complaint: Patient brought in by [employer] officer Noel Huerta for [address] health evaluation for suicidal thoughts. International TravelFever No. Coronavirus Screening: Have you been diagnosed withCOVID-19 in the past 30 days? no Are [facility]? no Flu-like symptoms reported in the last 14 days: no.Have you had close contact with confirmed or suspected COVID-19 case?no Do you live in a setting where a large of amount of people live,such as fdc, family care, half-way, etc? no. Have you traveledto a location with widespread or ongoing COVID-19 community spread [facility]? no Have you traveled internationally or hadcontact with someone that has traveled and has been ill in the past 3weeks? no Have you received the COVID vaccine? Yes. CommunicableDisease Screen: Negative for fever>/= 100 degrees Fahrenheit.Communicable disease screen is negative. (-) rash or unusual skinlesion (-) travel/contact with traveler (-) respiratory symptoms.Communication Speaks Lebanese? Yes, is preferred language.02:32 Acuity: Triage 2 jw502:32 Method Of Arrival: Police jw502:34 Acuity Assignment: Triage 2 cb0Iaqpee Assessment:02:34 Sepsis Screening: (1)Signs/symptoms infection Sepsis is not hw2tolxbpiyw. Pain: Denies pain. PSS-3 Now I'm going [...] noted. : No deficits noted. Musculoskeletal: Nodeficits noted.MEDIA TRAFFIC MANAGER:02:35 LMP N/A - Irregular menses wp1Aalydiglmb:- Allergies: Haldol; Risperdal;- Home Meds:1. ibuprofen 400 [...] threats or abuse. Denies injuries from another. oj4Nprlrzphdru screening: No deficits noted. Offer of HIV [...] in no apparent distress at this time. kd5Jtmtyzk is asleep.06:12 Reassessment: Patient appears in no apparent distress at this time. yw1Bqszgibkuwpq:10:54 SAFE Act Report Not Completed. Intervention: Observation Level 3. [address] health consult is initiated at 10:10. Referral Information:Evaluation referral is generated by the patient himself / herself.The patient was referred for evaluation because Suicidal Ideation.10:57 Subjective: The patients chief complaint is SI. Patient is a 20 y/o rg0gzhkp female who was discharged from the inpatient [...] / Agency: [facility] Walk-In appointment in [place] on Wednesday.. LivingEnvironment:. Patient presents to Emergency [...] of patients status at 11:05, Mental Health ASSISTANT BASEBALL COACH made awareof pt status at 11:05. Disposition: The patient has a safedestination which is Patient is being discharged back to [facility]. DSM-V DX [place] I diagnosis: Adjustment D/O w mixedemotion, conduct. The patient is not a service shop foreman or militarydependent. [place]in Suicide Severity Rating Scale: Suicidal IdeationRating 0; Intensity of Ideations Rating 0; Suicidal Behavior Rating 0.Psych:02:37 Subjective: Patient's mood is sad, Delusions are denied, yn2Jjbadsatpukwne are denied Having thoughts of suicide. Denies [...] Temp 97.7; Pulse Ox 96% ; Weight am7797.33 kg; Height 5 ft. 7 in. (170.18 [...] armband on for positive identification. Placed in gf5xvmc. Bed in low position. Side rails up [...] Disposition: Discharged to home ambulatory. fbg11:27 Condition: ayruczabl38:27 Discharge instructions given to patient, Instructed on dischargeinstructions, follow up and referral plans. medication usage.11:27 Discharge Assessment: Patient awake, alert and oriented x 3. Nocognitive and/or functional deficits noted. Patient verbalizedunderstanding of disposition instructions. Patient verbalizedunderstanding of disposition instructions. Patient has no functionaldeficits.11:27 Patient left the ED. fbgSignatures:Vincenzo Luis, RN RN fbgFedoroAnshul casillas MD MD afStickles, Robert, PSA PSA lf4AytyhavNils Argueta MD MD tx0GdqjxFortunato humphrey, RN RN di4FwljrRatna RN RN vp5Nvxomecvcwi: (The following items were deleted from the chart)11:06 10:54 Referral Information: Evaluation referral is generated by the ip3chkxvmw himself / herself. rs2 Name Value Range Interpretation Code Description Data Stephanie rce(s) Supporting Document(s) ID Date Data Source [id number] 03/01/2021 11:36:00 AM EDT [facility] [address] CONSULTPATIENT NAME: YARELI HATCH MR#: [id number] PHYSICIAN:AUTHOR: Kary Gray NP DATE: #: ERPATIENT : 00HistoryHistory of Presenting IllnessPatient is 20-year-old female, currently lives at [facility], past psychhistory of mood disorder, borderline [...] stated that she has a friend from [place] that she talksand that friend treats her [...] rce(s) Supporting Document(s) ID Date Data Source [id number] 03/01/2021 08:18:00 AM EDT [facility] Name Value Range Interpretation Code Description Data Stephanie rce(s) Supporting Document(s) LCOVID-19, CORDELL NEGATIVE [facility] This lab was ordered by [facility] and reported by [facility]. ID Date Data Source [id number] 03/01/2021 08:55:00 AM EDT [facility] [place] Name Value Range Interpretation Code Description Data Stephanie rce(s) Supporting Document(s) COVID-19, CORDELL NEGATIVE NEGATIVE [facility] Methodology: Isothermal Nucleic Acid Amp [...] Emergency Use Authorization. ID Date Data Source [id number] 02/28/2021 10:15:00 PM EDT [facility] Name Value Range Interpretation Code Description Data [facility] rce(s) Supporting Document(s) PCP VISTA NEG NEGATIVE [facility] MINIMUM LEVEL OF DETECTION IS 25 ng/ml BENZODIAZEPINES NEG NEGATIVE [facility] al MINIMUM LEVEL OF DETECTION IS 200 ng/ml COCAINE VISTA NEG NEGATIVE [facility] MINIMUM LEVEL OF DETECTION IS 300 ng/ml AMPHETAMINES NEG NEGATIVE [facility] al MINIMUM LEVEL OF DETECTION IS 1000 ng/ml BARBITURATES NEG NEGATIVE [facility] al CUTOFF CONCENTRATION IS 200 ng/ml CANNABINOIDS NEG NEGATIVE [facility] al CUTOFF CONCENTRATION IS 50 ng/ml METHADONE VISTA NEG NEGATIVE [facility] al MINIMUM LEVEL OF DETECTION IS 300 ng/ml OPIATE VISTA NEG NEGATIVE [facility] MINIMUM DETECTION LEVEL IS 300 ng/ml ID Date Data Source [id number] 02/28/2021 09:59:00 PM EDT [facility] Name Value Range Interpretation Code Description Data Stephaine rce(s) Supporting Document(s) URINE COLOR Yellow [facility] UAPR Clear [facility] UGLU Negative NEGATIVE [facility] URINE BILIRUBIN Negative [facility] UKET Trace NEGATIVE [facility] USG 1.028 1.010-1.025 [facility] UBLO Negative NEGATIVE [facility] UpH 6.0 5.0-8.0 [facility] UPRO Negative Negative [facility] UUB 1.0 mg/dL 0.2-1.0 [facility] UNIT Negative Negative [facility] ULEU Negative Negative [facility] ID Date Data Source [id number] 02/28/2021 09:59:00 PM EDT [facility] Name Value Range Interpretation Code Description Data Stephanie rce(s) Supporting Document(s) HCG QUAL [facility]INE [facility] Data Source [id number] 02/28/2021 10:15:00 PM EDT [facility] Name Value Range Interpretation Code Description Data Stephanie rce(s) Supporting Document(s) SALICYLATE < 1.7 mg/dL 0.0-20.0 [facility] ID Date Data Source [id number] 02/28/2021 10:15:00 PM EDT [facility] Name Value Range Interpretation Code Description Data Stephanie rce(s) Supporting Document(s) ACETAMINOPHEN < 2.0 ug/mL 0-30 [facility] Data Source [id number] 02/28/2021 10:15:00 PM EDT [facility] Name Value Range Interpretation Code Description Data Stephanie rce(s) Supporting Document(s) ETOH NONE DETECTED [facility] NONE DETECTED ID Date Data Source [id number] 02/28/2021 10:15:00 PM EDT [facility] Name Value Range Interpretation Code Description Data Stephanie rce(s) Supporting Document(s) GLU 98 mg/dL 70-110 [facility] Patients taking Sulfasalazine may have f alsely depressedGlucose levels. Patients taking Sulfapyridine may havefalsely elevated Glucose levels. Patients should be drawnfor Glucose before the initial administration of eitherdrug. BUN 14 mg/dL 7-23 [facility] CRE 0.645 mg/dL 0.500-1.300 [facility] GFR > 60 mL/min [facility] CHLORIDE 109 mmol/L 99-110 [facility] NA 140 mmol/L 136-147 [facility] POTASSIUM 3.6 mmol/L 3.5-5.1 [facility] TCO2 22 mmol/L 20-33 [facility] ANION GAP 12.6 10.0-20.0 [facility] CA 8.6 mg/dL 8.3-10.7 [facility] ALKALINE PHOS 114 U/L 45-117 [facility] TP 7.3 g/dL 6.0-7.8 [facility] ALB 3.6 g/dL 3.5-5.0 [facility] ESRD Dialysis patient Albumin reference range: 2.9-4.4 g/dL GL 3.7 g/dL 2.3-3.5 [facility] A/G 1.0 1.0-2.5 [facility] T. BILIRUBIN 0.3 mg/dL 0.1-1.1 [facility] [place] Total Bilirubin is n ot recommended forpatients undergoing treatment with eltrombopag (Promacta)due to the potential for falsely elevated results. ALTI 44 U/L 6-54 [facility] Patients taking Sulfasalazine and/or Sul fapyridine may havefalsely depressed ALT levels. Patients should be drawn forALT before the initial administration of either drug. AST 18 U/L 6-38 [facility] Patients taking Sulfasalazine and/or Sul fapyridine may havefalsely depressed AST levels. Patients should be drawn forAST before the initial administration of either drug. ID Date Data Source [id number] 02/28/2021 10:03:00 PM EDT [facility] Name Value Range Interpretation Code Description Data Stephanie rce(s) Supporting Document(s) WBC 10.31 x10E3/uL 4.0-10.5 [facility] RBC 4.19 x10E6/uL 4.20-5.40 [facility] Hemoglobin 12.3 g/dL 12.0-16.0 [facility] Hematocrit 37.1 % 37.0-47.0 [facility] MCV 88.5 fL 81.0-99.0 [facility] MCH 29.4 pg 27.0-31.0 [facility] MCHC 33.2 g/dL 32.7-35.6 [facility] RDW 12.2 % 11.5-14.0 [facility] Platelet count 274 x10E3/uL 150-450 [facility] ital MPV 9.7 fl 6.9-9.5 [facility] Neutrophils 60.8 % 34-64 [facility] Lymphocytes 29.1 % 25-45 [facility] Monocytes 8.0 % 1.7-10.6 [facility] Eosinophils 1.4 % 0.4-7.0 [facility] Basophils 0.2 % 0.1-2.0 [facility] Imm. Gran. 0.5 % 0.1-2.0 [facility] Abs. Neutro. 6.28 x10E3/uL 1.2-7.6 [facility] Abs. Lymph. 3.00 x10E3/uL 1.0-3.5 [facility] Abs. Will. 0.82 x10E3/uL 0.1-1.0 [facility] Abs. Eosin. 0.14 x10E3/uL 0.1-0.7 [facility] Abs. Baso. 0.02 x10E3/uL 0.0-0.1 [facility] Abs. Imm. Gran. 0.05 x10E3/uL 0.0-0.1 [facility] ANRBC% 0 % 0 [facility] ID Date Data Source [id number] 03/01/2021 12:39:00 PM EDT [facility] [place] Physician DocumentationClaxton-Naveen Hinkle edical CenterName: Yareli DuvallAge: 20 yrsSex: FemaleDOB: 2000MRN: [id number] Date: 02/28/2021Time: 21:08Account#: [id number] 3Priash SMITH: NONE, - Per PatientED Physician Nils ArguetaDiszach Summary:03/01/21 11:57Discharge OrderedLocation: Home Self Care afProblem: an ongoing problem afSymptoms: are unchanged afCondition: Stable afDiagnosis- Bipolar disorder, unspecified afFollowup: af- With: Private Physician- When: 1 week- Reason: Recheck today's complaintsDischarge Instructions:- BIPOLAR DISORDER af- Discharge Summary Sheet kw79Fhotb:- Medication Reconciliation af- Medication Reconciliation Form - 2nd Copy afHPI:02/2021:26 This 20 yrs old White Female presents to ER via Police with zv6jocprvudxp of Psych Problem.21:26 Associated signs and symptoms: Pertinent negatives: abdominal pain, rr3axcyq pain, fever, headache, nausea, shortness of breath, [...] Temp 97.8; Pulse Ox 97% ; Weight yi4610.95 kg; Height 5 ft. 6 in. (167.64 cm);22:59 BP 120 / 64; Pulse 75; Resp 16; Pulse Ox 97% ; jw:37 ml:15 Body Mass Index 38.41 (107.95 kg, 167.64 cm) jw512:37 refused vitals ml4MDM:02/2021:11 Patient medically screened. :53 Data reviewed: vital signs, nurses notes, lab test result(s). ED pi8bniqup: Patient remained stable in the ER. Patient [...] name: Medically Cleared for Eval by- Psychosocial, Prep Manager wilfredo(YE); Complete Time: ::17 Order name: EKG [...] mg [acetaminophen 325 mg tablet (2 tabs)] hh6Atkij: PO;09:45 Drug: Propranolol 10 mg [propranolol 10 mg tablet (1 tabs)] Route: PO;fbg09:46 Drug: sertraline 150 mg [sertraline 50 mg tablet (3 tabs)] Route: PO; fbg09:46 Drug: Topiramate 75 mg [topiramate 25 mg tablet (3 tabs)] Route: PO; fbgSignatures:Dispatcher [employer] Vincenzo Acosta RN RN fbgFedorowiAnshul bull MD MD afHowland, Todd, MD MD [id number] humphrey RN RN hf3GbowflfheGno santana RN RN sc3 Name Value Range Interpretation Code Description Data Stephanie rce(s) Supporting Document(s) ID Date Data Source [id number] 03/01/2021 12:39:00 PM EDT [facility] NotesClivelisseRockland [facility] terName: Yareli Domingo: 20 yrsSex: FemaleDOB: 2000MRN: [id number] Date: 02/28/2021Time: 21:08Account#: [id number] 3Polga MD: NONE, - Per PatientDiagnosis: Bipolar [...] of amount of people live, such as fdc, familycare, half-way, etc? no. Have you traveled to a location with widespreador ongoing COVID-19 community spread or outside of [facility]? no Haveyou traveled internationally or had contact with someone that hastraveled and has been ill in the past 3 weeks? no Have you receivedthe COVID vaccine? Yes. Communicable Disease Screen: Negative forfever>/= 100 degrees Fahrenheit. Communicable disease screen isnegative. (-) rash or unusual skin lesion (-) travel/contact withtraveler (-) respiratory symptoms. Communication Speaks Lebanese? Yes,is preferred language.21:09 Acuity: Triage 2 jw521:09 Method Of Arrival: Police jw521:11 Acuity Assignment: Triage 2 vg1Niurea Assessment:21:14 General: Appears in no apparent distress, Behavior is cooperative. tv6Wnxewj Screening: (1)Signs/symptoms infection Sepsis is notsuspected. Pain: [...] threats or abuse. Denies injuries from another. em5Napmohnretd screening: No deficits noted. Offer of HIV testing:patient was previously offered screening. Fall Risk None identified.Assessment:22:58 Reassessment: Patient appears in no apparent distress at this time. jw508/2112:36 Reassessment: No changes from previously documented assessment. bz0Ntagbmjzohwv:02/2022:21 SAFE Act Report Not Completed. Intervention: Observation [...] Pt states that she was inpatient at [facility] from02/21/21-02/25/21. Pt states that [facility] and she has anappointment next week [...] guns. Pt statesthat she has court [place] 18. Pt does not presentwith delusional thoughts. Delusions are denied, Hallucinations aredenied. Patient's mood is depressed, Having thoughts of suicide. Planfor suicide is jumping into trffic. Patient reports history ofanxiety, Bipolar Disorder, Depression, self - mutilation, suicideattempt: many Mental Health Admissions: 02/21-02/25/2021 [facility] Outpatient Mental Health Services: Psychiatrist / Agency:[facility]. Living Environment: Family /Home Support: poor [...] informed of patient's status at 11:53, ED GBtw23ywtfquhp of patients status at 11:53. Disposition: Medically [...] ED if problemscontinue or worsen. DSM-V DX Fairpoint I diagnosis: Bipolar D/O, depressedAxis II diagnosis: Deferred Fairpoint III diagnosis: None. Fairpoint IVdiagnosis: poor impulse control. The patient is not a service memberor dependent. Rankin Suicide Severity Rating Scale:Suicidal Ideation Rating 0; Intensity of Ideations Rating 0; SuicidalBehavior Rating 0.Psych:02/2021:18 Subjective: Patient's mood is irritable, Delusions are denied, mt7Pccboiqfeyjmad are denied Having thoughts of suicide. Plan [...] Temp 97.8; Pulse Ox 97% ; Weight wn8050.95 kg; Height 5 ft. 6 in. (167.64 [...] mg [acetaminophen 325 mg tablet (2 tabs)] hr6Uicii: PO;09:45 Drug: Propranolol 10 mg [propranolol 10 [...] no functional deficits.12:39 Patient left the ED. vd0Xzmythqvmt:Vincenzo Luis, RN RN fbgBrown, QUIN Bucio Arthur, MD MD afKendall, MD SARAH Ramirez mg4Fpltq, Fortunato, RN RN wr9Vsxv, Ina Suggs, Marianna Merrill, Danae, RN RN og3Wduzrrkk, Geno, RN RN sc3 Name Value Range Interpretation Code Description Data Stephanie [facility](s) Supporting Document(s) ID Date Data Source [id number] 02/26/2021 08:59:13 AM EDT [facility] Name Value Range Interpretation Code Description Data Stephanie [facility]) Supporting Document(s) Discharge Summary [facility] KVJOXi0fXuTJBfAy51/VXIhoXBKzm5XvBIweRGu0UTczODFdD4ZaWTE6gW2cKDT4ABzISeWvPcHnBLT7 [facility] [file] ICAgICAgICAgICAgICAgICAgICAgICAgICAgICAgIC AgICAgICAgICAgICAgICAgICAgICAgICAgICAgICAgDQogICAgICAgICAgICAgICAgICAgICAgICAgIC AgICAgICAgICAgICAgICAgICAgICAgICAgICAgICAgICAgICAgICAgICAgICAgICAgICAgICAgICAgIC AgICAgICAgICAgICAgDQogICAgICAgICAgICAgICAg ICAgICAgICAgICAgICAgICAgICAgICAgICAgICAgICAgICAgICAgICAgICAgICAgICAgICAgICAgICAg ICAgICAgICAgICAgICAgICAgICAgICAgDQogICAgICAgICAgICAgICAgICAgICAgICAgICAgICAgICAg ICAgICAgICAgICAgICAgICAgICAgICAgICAgICAgIC AgICAgICAgICAgICAgICAgICAgICAgICAgICAgICAgICAgDQogICAgICAgICAgICAgICAgICAgICAgIC AgICAgICAgICAgICAgICAgICAgICAgICAgICAgICAgICAgICAgICAgICAgICAgICAgICAgICAgICAgIC AgICAgICAgICAgICAgICAgDQogICAgICAgICAgICAg ICAgICAgICAgICAgICAgICAgICAgICAgICAgICAgICAgICAgICAgICAgICAgICAgICAgICAgICAgICAg ICAgICAgICAgICAgICAgICAgICAgICAgICAgDQogICAgICAgICAgICAgICAgICAgICAgICAgICAgICAg ICAgICAgICAgICAgICAgICAgICAgICAgICAgICAgIC AgICAgICAgICAgICAgICAgICAgICAgICAgICAgICAgICAgICAgDQogICAgICAgICAgICAgICAgICAgIC AgICAgICAgICAgICAgICAgICAgICAgICAgICAgICAgICAgICAgICAgICAgICAgICAgICAgICAgICAgIC AgICAgICAgICAgICAgICAgICAgDQogICAgICAgICAg ICAgICAgICAgICAgICAgICAgICAgICAgICAgICAgICAgICAgICAgICAgICAgICAgICAgICAgICAgICAg ICAgICAgICAgICAgICAgICAgICAgICAgICAgICAgDQogICAgICAgICAgICAgICAgICAgICAgICAgICAg ICAgICAgICAgICAgICAgICAgICAgICAgICAgICAgIC BjLXDoOSRiMRHrJUIbZTSnOLYfOZYrPJZrQEZlSNViVDNiXVHpUSDtBOj3R6efTXCaSVFeWY8rXFn3Im 8+OUlZLhNdNAI3mkXxvP4JNZ9la3AnFXdqEYRwe6OzURi8KU1DMWOoDBioAH6QBXzrjo8DRIOfWLVbvE XPw4euGtTrTDR7HPLcYbeqTB4ELRGfA2ujviVgPRCo HBMPBUyeDWHQOEloGJRVSLOeCLWxErMeNfDiUQZnXZKmVSKAGXM2YSNvEnQhANGcDHRuKyPaTEITHVZc JVKzBoZdBKvrKJ3Sy4GriYWvHS8VEi3UClIgDZ8com4TQKUrEQAxVeiOGro3IRrpVG9KcUNziHF1USGf FKRVPcDxR2xcd8LlYJYzVLCSYMiwSR3Nr1PsrFFsJW o+Cp0OKO0ln3YlYQu6VAUuDN7zty9RZDnDSfAtS7NmuEyeUDWip6LwUDFnTARZmD5hZYI1CUK2DIvxlM HnfvFwZYJXJPEcvIbdmthyZAIaDGTmFZ1xVa4dCUMrXYYnXzY6ALXFLA8JCERrANQndHEbXTLtSTLEMC 0SPJjhQWV8FKRpcdFqoEAqGZmuYM4KILLkuwUvFPJw MCBSDQo+Cp8XME4mh1SqIBn7TyYaVN2brm7JIVyDFzKcO9J2mWFuW2T2DQiuWu5FGGEqGNErZSUiRXUC ZMujUV5XGP2tmzL8OG1UtMKvOVTaXMXidSFcXLi6H25dvQLkBLtdNT6OBIG+Dillon+Le4PKDXsUUWnQWVu BbCoFDGEBxFaB4TpI3FPn7ZoS8MpBO05gHrqxkZiNE soTL2QOA5vLVGhDTZMGG9PsGZgiQ6zhyX3NGAmUMAEHiXdN79mlBMwDJQaKYRzQTMnNq4VSLCeR8Idau BveLuhsbUlZFAxPPETIP2YAPvyuoFebLVzdTcdZC84bWewRH5OPt9BWeQlZG2miw1XgLNyIt3LYVE2Mm 1YTSAbCOHqNHMbMGF2MDMuCsKtZQlyXDFzSQEpKMF7 OXBmKDTlXQ2HWySiVPJtJaByKtohDFAdVSDsbw3HNSCrMQS5Zpo1DoUbEEWpMXWaSMhoTXExNTMvYUH4 NCTbRDMzHT1SEbIeGCOiXFG3UxxhRKErUNKaqb4LQPAfZWWqNPb1TWIvEQAjGTIbHLgtLMTwAYS3Tca0 XZEvQUSbSB8KViPhDJOkJSr8TIPgEWKzNBXqts7YVG FtKNWzYmt0JRDyUURnRAUxNIsmSPGuKYCeUXTeTNZuYTPqFT4MNiIiDSZrRZS5XOmrSYRtTNWzqo1NWV UiWUFoJXpiHzGbSQSrNARqQDdsUEAiFAEmFSD1JMFfIAWfQH8CRmKuPJKeXoRmMTJpAVPbYXZqqm8VPX VyJISlEkixHWUtNMOeDPDxVWuwUWUhKGJ5GJG7NDMh PBMqKX8KXpNqEGRwLay3NDSrIGSdWYIakb4QXDKdEOZhXxh9VPFxMCYgIAHkRRdvFNEbASGfCAvjPRIo XXIxNU1DCtDeDUXqPbI2TYNhVPKbGQOugp1PJISpCCZpLXSrAKRjVEZqHSElWVpaYXSiRIT4QTK7PJUb CICpPL2YLrKuEZIdCkQ2QSDiNLOcPXDgsl4EYKMpVH OuNfVcTAWwGRLcYFUuLCkeSVWwGHE3HAogQOZjEKBgST9JXsSiZQHzUju2MlppCQYtSDWguj5WUIQrOJ ItUpq0AAArAVRxTCQiRWflFTCaCMX5AAGkHEPuWEOvZD6QCoRiLIMxQzgwJZIiLYYvJZNlog6WENChWS AzOTMwMCAwMDAwMCBuDQowMDAwMDQwMjYwIDAwMDAw VH7VHdHuZFXjHHT2NQzqTOFvSTWiis3ARMOlDHM1JCU2OPBmQFGhVWRkRBtzDHYbFPQyGmYrAKXlJMPu JI5HCjAfDDSuOMZ2AKHyNZYhUAWopp3BMPDeMPC1AQj4KXIaTAVgIWJdDCxjUPHyFHLnFMNgSKXkFRZa WJ9DMeGjEQGdQPEzIjUlPFUbSSErkl5DSXQxQNK8Qc P6YrZoTSAvNNTrTJtzBVDeHQO3MsNeLXShGJJoPN0YTbUhPVRlSEYeOaSdHXBnRBKixb2GWPIbGKT5UD J3PNXiBVCxQQYgXPziAYUoLYF6TRD4GFLdZRSpDJ0IAxNiGITiGNP2WSDyNSJxNAPnow8LTXOePEF4WR BkXTTbNEQiGCKhARkkQBEgADJfVVAvNSGoBVHcRH5Z ViFfOXThAtRpJNzzZPHnABVvfm9SNRZhXPI6FYN9REWyYLVoUAQwJXhyKUSrDFEdNLU1EICyRWVdTD0O DgQrVGJkMeQ6IBryRUCiCASune0KENNhRKD3BUg8DVXcTFFcMTUqVAyaDOVtIJUpDBT4XWScYLQwBV3T DpYrNZYwRuN9JjOxVZFqOYNooc3QKTXtBJV4FEItFg MyEJTrHQKfGUuaRTTpQMR7WHj6EFYnYGKwEK5FYlSbODKhRhPyXLZkEZFhOKAnfh8RsWUdvVxnte8XNP pNWy4HfKquRVE1NBziTk2spQX2FlUfDGVGDa3PtnZdFGEyGOHBSJswNVApXKH4DpTmMxZbQTOnRvX2O2 KpVPcdLtWrQSXeEMDyKtTcVxB5Wem6R9LjJeJ4YIOt WTNmXEYaGVQjRgJ2TIFzLNEpGXJ+GA4zXCp+Lu8Xg0UrucN9ixCjYZs1PIW8Zj0CPNOBL5YPRy== ID Date Data Source [id number] 02/23/2021 04:37:10 PM EDT [facility] Name Value Range Interpretation Code Description Data Stephanie e(s) Supporting Document(s) History and Physical [facility] VCZCZv2fNrLBGwKa23/LURewAOBxf0QxNRawJZz1LOekCSGmV4OmPIG5pT7rIAP7UAsLIrJfTnKqTOV3 lbm [file] AgICAgICAgICAgICAgICAgICAgICAgICAgICAgICAgICAgICAgICAgICAgICAgICAgICAgICAgICAgIC AgICAgICAgICAgICAgICAgICAgICAgICAgICAgICAg DQogICAgICAgICAgICAgICAgICAgICAgICAgICAgICAgICAgICAgICAgICAgICAgICAgICAgICAgICAg ICAgICAgICAgICAgICAgICAgICAgICAgICAgICAgICAgICAgICAgICAgDQogICAgICAgICAgICAgICAg ICAgICAgICAgICAgICAgICAgICAgICAgICAgICAgIC AgICAgICAgICAgICAgICAgICAgICAgICAgICAgICAgICAgICAgICAgICAgICAgICAgICAgDQogICAgIC AgICAgICAgICAgICAgICAgICAgICAgICAgICAgICAgICAgICAgICAgICAgICAgICAgICAgICAgICAgIC AgICAgICAgICAgICAgICAgICAgICAgICAgICAgICAg ICAgDQogICAgICAgICAgICAgICAgICAgICAgICAgICAgICAgICAgICAgICAgICAgICAgICAgICAgICAg ICAgICAgICAgICAgICAgICAgICAgICAgICAgICAgICAgICAgICAgICAgICAgDQogICAgICAgICAgICAg ICAgICAgICAgICAgICAgICAgICAgICAgICAgICAgIC AgICAgICAgICAgICAgICAgICAgICAgICAgICAgICAgICAgICAgICAgICAgICAgICAgICAgICAgDQogIC AgICAgICAgICAgICAgICAgICAgICAgICAgICAgICAgICAgICAgICAgICAgICAgICAgICAgICAgICAgIC AgICAgICAgICAgICAgICAgICAgICAgICAgICAgICAg ICAgICAgDQogICAgICAgICAgICAgICAgICAgICAgICAgICAgICAgICAgICAgICAgICAgICAgICAgICAg ICAgICAgICAgICAgICAgICAgICAgICAgICAgICAgICAgICAgICAgICAgICAgICAgDQogICAgICAgICAg ICAgICAgICAgICAgICAgICAgICAgICAgICAgICAgIC AgICAgICAgICAgICAgICAgICAgICAgICAgICAgICAgICAgICAgICAgICAgICAgICAgICAgICAgICAgDQ ogICAgICAgICAgICAgICAgICAgICAgICAgICAgICAgICAgICAgICAgICAgICAgICAgICAgICAgICAgIC AgICAgICAgICAgICAgICAgICAgICAgICAgICAgICAg DQPuBAQmDZHoIBl0O7mfNTWjHCFqTB4rPEc2Mn7+EWnHOhCiVJX9ykXvvP6MOR3yb7OySKwjGXZpb0Sz XNj8JC2DOETnYJshZX7WQCvggz7OAXVsFRNusDVTg5xgQgBeCIS3DYPrBmirGG9DRXXqU9hnxwEpMZWj MTKAUHbxLBZGHXgzBOYUMRFpPTWyCsRkOGkxRJ3Cs0 SjiWU3SSa+Dy7XEF9gv2NfCQgjKBQcLC0sbk7RSWoJFeDiL5UkoxJ4YZU6ABXjEr5UOORpEEWtsJUeEQ PzDINNHkVlM9JksB81MOCIYq9+AEeaeoZiKuvROqL3NXWhv2ZgBKz4DN1NUXYdDWm6rXDuWZLAJEU8GA AxQO1mYVDMlEUxUWDsQXHYCAR4RWneUCMeSgDaOJPj DXfdMvEYMNoONuQpQ0Nrj4JfLtD3TEZhHfYqPOagNYZnYrJ2TC96tBzsDU0OCCPuJLHdYC62RMF8YPFq Aw9QMk6LXqEfYR4naa1PXhXrPYQsZiuYEwh4PQeuGM8XgKPfD8ZtbPMrg0xZKcOpS5NASEEbIWJaTt5T QAFvPaSmDSSoYRcoOZ0sEADbESHStVtcylT8TE7BXW 6hfdZiUR4RKvMdMg4yQr2PAvQkG9KkU0XkKIHvAKKWQQlvQG6ZBYbzGK1pDF2Gv1AAdGXvqG8mvh5QJP DfVVLzDvgxnm1FBgzkI1O7zIpzXXMfSuTrKHLQDJukJZ9ATFNpDZX5YLHpEfAxWAXLGjBvP63pUR2GM9 Ndm85uHuX3KIEkUaXrBTcnVI40lGnwsdAfmRAuzSxg VJ6FOg1+VLoczwMmUpgDNofhMRKFJlCuJwnQAaGcBOKyGGUyHLMzVcH0ZwEcCn8ZOMNbTUTiRSFwQaDa CEKdHOZcHYlwANBzTMZzPFQlEIToWFDzJY8AJmHfNYWdDiL9FbavQNHtLFJohu6HMVTxZEWaBTL5NtWk VDYrOKLsEZneARZsVZAwZBvfLBWvVGIeTS7FJlYvDB BjQDIrZMlsJICqNMRtfx3XZVIgYCVvNBf4NHIpSQPgGLAaUGqgVXWoFGB6ZIpgCTSzYSMpEF3YYqFyEZ AbKRu4DhCqYOIcDXTnls2XIXCkIYHgAMb9ACJcVVZsKPXySQqcFFJgUQBnVGA8VHFiSIZwYA6JXoNlTD KfWOPcQqViRGAhEEVokt3WUQBuOLQpLzG5HXTsYTAd SWQlZVqfRYDlUYMyGtchHBXoESLxIW7ASeIyGOFwZOA3LbGpQLGkLADkcz5CBXKmTTYeIgVmJqBgYWQq OZWaKPodQZYaZARfCeK3ZGEiYIVnHP2CFrBzZFHfVHG0WQHkUQYyXGLgvu1YJKDrNHPpBLy6LwOfFCBu AEEoDQahOAOfZWE0YWymKFLbTSReIH4JSsAtMHSwEH QmGEZnUBMbHEFvbj1FLWUeELLqHePpEZIwUWPeCNFuYDilELNeFOE5TUF5RNZgQBCkKL2JImAtUTAdHk rsTnFbJOSlJVDokx8GAZBiSWCcEvBaRJYoHOHtCSAjYWxuZBAtESN0LAMkIJHxMRUlOC9ZAcQhCFBsNy asUOMdHCZuKLZttg0GDSTdLYLvFKN9VzEuJFXoMLNk YXytCJCyFTD3GbWtCIOoVFOoPS7OLsEkYFZdWow6PMNlHGDeNYNbku8AESJjUEWhWOd0LpEbCCSrVDDf KBkcWXNuNYFhUTc4OVNoBXKvIH6GKrEwLZUoGsT8MaehUYQzAFNlgl9EENPnTFKyXLr9WHXxSGDbXTKm ECnlXRHqEWPmOGG1NGTxAIAgUD1BLpJmWBSxHjYfWJ GtEYNuZSEggg0WpOLsfPpxha0XNKdUFi2QyErmYIQ4HHfzOz2rnXQhMkAgAVYITt1CvnLcTHCdVKZKLD ofGIYrAEEaHtX2YcD3ZBV5PGOkWtZ4JQL3WmMyCKRfY6I6LIa3CsO0AzZvKWkhRLRkNpExEsI9Cgs0Vs qbTWP5XzM8MuUePsC+EG5vBWc+Pf3Fi8PnkjR7tyNuKCmeRmCnAc6TBSGFQ9CLDa== ID Date Data Source [id number] 02/22/2021 04:47:09 PM EDT [facility] Name Value Range Interpretation Code Description Data Stephanie rce(s) Supporting Document(s) History and Physical [facility] ZVINGj6xWuKEUgCi70/HDIvqXZZdc1FfCIlaYXw0NTeeDKSdS7YyAWO6dW3qZWH9GVaMKiKrZhRjENZ2 lbm [file] ICAgICAgICAgICAgICAgICAgICAgICAgICAgICAgICAgICAgICAgICAgICAgICAgICAgICAgICAgICAg BSJtCVDjCCLxJFWjIG2CWPWdUDYcKKVeXNRpAHSiNOTyYADsYOKrAYYrBGRlNTQxETDnYLWwABKtBKMq ICAgICAgICAgICAgICAgICAgICAgICAgICAgICAgIC IqNGEfNJSlLRCrMPCnQVRpQEZqZDBwWW5FEJDyKGDeCUQfQUYnWPKyUYAxZMIyBIOdUUGgVDXmOKGrBZ AgICAgICAgICAgICAgICAgICAgICAgICAgICAgICAgICAgICAgICAgICAgICAgICAgICAgICAgICAgIC TvEYJtFD7WJWCbBLGlOIRuOGLvHBIsYMQxGCEtXREz ICAgICAgICAgICAgICAgICAgICAgICAgICAgICAgICAgICAgICAgICAgICAgICAgICAgICAgICAgICAg NYMjERHaUMSpOXOlITMyVZ0OYLTgSAUfIQGmOHNkGNZnFRYuKJZqBYYtCWRrATByOSOgHGBuGQJbRHDw ICAgICAgICAgICAgICAgICAgICAgICAgICAgICAgIC JxNMGbNSKiRXFdMGTpQJPrWWTiJEZhWUJnGA1KDFXcUZXoPEVjIBPkANOqHIOlACRdQXPeYPEjTKDpGV AgICAgICAgICAgICAgICAgICAgICAgICAgICAgICAgICAgICAgICAgICAgICAgICAgICAgICAgICAgIC OcIWDmSJIuCS3MRASbLHIwHSGbLEScRVRmFPExFLEo ICAgICAgICAgICAgICAgICAgICAgICAgICAgICAgICAgICAgICAgICAgICAgICAgICAgICAgICAgICAg DJWpRNYfHZJiZWMnKSGnDIPpNA7KIAMbJMIgBJKhCBWzSFPtAXUgULGqWTRnCBRmUXMnVXTtHCPoUYXf ICAgICAgICAgICAgICAgICAgICAgICAgICAgICAgIC JaSHUfUYIoQGZvXMGzQUVqQAXmWNLeCELgIXKyPP1MRQEhSMRcANOhNAIuHLQgMBTxAWVkVTBbICDpBZ AgICAgICAgICAgICAgICAgICAgICAgICAgICAgICAgICAgICAgICAgICAgICAgICAgICAgICAgICAgIC AdYQEyVYAqOMYlTH6WZEMvPIHeDIKoQSJiWTKgLJMh ICAgICAgICAgICAgICAgICAgICAgICAgICAgICAgICAgICAgICAgICAgICAgICAgICAgICAgICAgICAg MXIwIEMgWATjBOAxXADeMRHkYNOrRA2OPG70yMPof2G6NDVyKW4xxfd/Bx9PDZavuoNtuQOuEH3ABjUo RV2vlz9RBrLfSY0cmd3GKPxIOtXyB1V7cLOkNIQaPI TTJpLgQ43cKDacUn57PTjfTFUcSrWyIRz3Us1RTyEzH8phMGNqTjO6JJPwPpL9CWCoGwD3RKDaXrPmKA BzIKGbSGLnSMOZLHU2MBToBdGyJwUtYDOwVOwdTYGCTEHwKTCuFyLhJJkuPO9Mp8AdiKL4FRw+Pg0KZW 7jg9DzKSj5HoRwKK8zln4FCXlDLjEsS6XvdrN6QFQn UMZwCp5CLQBbDOHwiTH3VpBbJBRPNsUsM3XohU03JMXOJu1+VEqofyRnFcpESpHfKIOfr0XeUJg0BZ7B EUPfWFu0gFUmNTJNCLZ1UDAwsgcnVVVOc2I5UOAALFArcXT9VlL7TdPtRbFdFLG0MKWlZC0sZDvtEE7M OKY0WKmzZVYjUHHeW4gAMnOsTVVdMnIhpRlxET8ZVh KiE0RpjpVxxAF0NkWtSHKJIm9+ORvpjnHmCkvDIyR2EZCwg8DeTAo7EQ0KEMRpIQipBF7WTWPcyC9lDS ytFF4GBvJ8TWNtUHJVIfUoA49eeLBuXXr7L8LaVrOrQEBpBunwMDMiUEiiUnHyTMCuDaFlDHdmFA6+ID 4+LGwgZX1QFWdreuDbVJCfSr0QLTPuJQDjQT1iGYIa BITyK4G1bDkiHANPMfKwZ8vchmjfZK5zVVKeF946aEzvblVyTXAhDIHoOn2ZUNSaOVV1KTJnpPZbGIWu WKTHKAbkYL6TtKMhVLM0wY6jEQiaDOEgOVHdJ3jZKdPwcLteAJ79hBqpumKcsIAjBGa+Fj9JQC2qv3Ak PRk5meIaJRcrIIT6RPeePQBmOVVtJXAlQYA3CRU5QR NPMnMvIJHrKNCaKHbhMGAsZBLfub8KHWPvDDN5FjuzQgHmSYVgPTGgPPioCREbODQ6UiM0SDCtTANtGO 7LJrJpCHSoKZGqOAeoVPBjSNCzqd4ZDRKaONOcAiY6GbXgJUNaPNQqTDinUZBuGXCtUeL4MORaYLQbWA 0DZrTwDRSvZJB7PhKxZDPfTNUffo4YIAPzKOOkYlS8 WwUnFOLgFSHsGZbxRZHbKPFxETv3YWNaIVMuZQ3MBaDdICQoRWDiOXKuVWWcKUQqhr3MZYAoHMKaGbfx AMWbOGXqAZHdFSadLOWwSAK8URU4TEMfQRXbIN2NVdIpMIXlYPc1EdrfNCKoYMAyce4ERECbIWTiZbnt IERqIKFwVWRtECjgMIOwBHHcJiB2ZAJfOIHvCZ7FDv AdDDIvToG9ETLdDGWjFJGmyh5XHZOsKHBvTBKfYEVlLWZgZYCtSVpyVOCfHHG3DaEaXREsGBMwTN1MMc EcBGUtDrbxEmmnSGXwMPVjpi3YYLUnTURtBBAeRiTfUZKeXVCbUBgiOKOzZQPrESj3NHEqZIJrZT1EAi IuYKNjHsMtJEUpIYKoWSHxnr3JJYObCSFeAgT6BCKc TMBqGKXlVBlaPUUnZUJgQNZcKTWqQWAsFX5UExLdDZYoOhW6JxYbTFPhYYEmtx8ECDUbMULcPfK2MgVl DBBaWANiXMlgOSVvTKRrQBj9PULrVLTdGB6SSaTuFKSzNcEhOCGeFPNeDCTija3FCELaGNXgXVZ3IoMb RHIlEQLnBEubTIFvNGL1RgIfQQJvSGIlJD8KUuCvTU QyAkK0FdVzDCSmWPIvsm0UBBMaOSAfDhQ3AmHtIZCvVZHvOSdfSCJiFAU2BLl8MIVzHCGkJM9YNwOuNY TfBkL6ZbraREQsIFYzhj7XDBJqVCD3IHH0PgIvEQEjNDEzEVdsECUkTQM9DSpzNIDvZNSmTN5EKsSxLO BsYSx4HDrxYXGqJKQjtb7RKXBeKEZ9TMudWVKhKMUm ZUGrNIoxAAAeUUZ7BKs0MCNbUGVuUK0ZUdKuFLOzDNI0FbLnHRNeUXYsvi7JXQTcDVG0FSS0BnNgUGLt YYQlSEzuOSNcJNZ2EKQ5UQDiSYJaLO9SDqQnIIIdUQB4LLSqETTzIWMfgq4TFGLjUFU0PDh0XoVkZVUb VODoATfiTBHuJKQ7OKi2SVVvYYYnYV4BCvSgYUEoKW PlWCorACQrDJTdfb4VIWHwTKP1HRI0QSXtQNGxMXPiVRzfPODyYTF5KWL6ZVIzQAMcUR3PHwMwJFIhYO L2QNEsQCBvIVGcdz6CRULfNOI5Ysd8BVRrGDNqAVCfWMjlUWYdAQL9YdP6YWAsFIRtKT6SHwTyOJTpST p4XQgdFYQoLPOyng5DOZXoXJO1DTykHCSuLLEbUIMq JOunWYYcDNW3XDHxARKaPSXjFN7COhJlUUxhVWJEDnv2WKirH6j8LRC9MJ8XU6Exv4CnFGGaEGMAEWnd WO8fadZtVEHgMr7SS9bXJsfjGzqmFwVaWWS5KIiwLlXeVGReIBB6WvfzTVbaYUVwLr8zUIM2L1OdDTKg OVQ4V1D3GSStIZHhNRSaY0RkJ6K0AxXeUpPyOE0GVr9JXjU5GNQ7tXEiWw7UDPmwGYxWExQjMP1EWEb= ID Date Data Source [id number] 02/21/2021 01:20:00 PM EDT [facility] Name Value Range Interpretation Code Description Data Stephanie rce(s) Supporting Document(s) LCOVID-19, CORDELL NEGATIVE [facility] This lab was ordered by [facility] and reported by [facility]. ID Date Data Source [id number] 02/21/2021 01:46:00 PM EDT [facility] Name Value Range Interpretation Code Description Data Stephanie rce(s) Supporting Document(s) COVID-19, CORDELL NEGATIVE NEGATIVE [facility] Methodology: Isothermal Nucleic Acid Amp lification [...] Emergency Use Authorization. ID Date Data Source [id number] 02/21/2021 11:11:00 AM EDT [address] CONSULTPATIENT NAME: YARELI HATCH MR#: [id number] PHYSICIAN:AUTHOR: Dylan Aquino DATE: #: ERPATIENT : 00HistoryReason for consultNeed for inpatient hospitalization for psychiatric [id number]-[id number] female with a longstanding psychiatric history.Chief ComplaintDepression and suicidal ideations with a plan to harm herself or drown herselfReason for AdmissionThis flex o writer operator met with the patient in the emergency [...] rce(s) Supporting Document(s) ID Date Data Source [id number] 02/20/2021 11:36:00 PM EDT [facility] Name Value Range Interpretation Code Description Data Stephanie rce(s) Supporting Document(s) SALICYLATE < 1.7 mg/dL 0.0-20.0 [facility] ID Date Data Source [id number] 02/20/2021 11:36:00 PM EDT [facility] Name Value Range Interpretation Code Description Data Stephanie rce(s) Supporting Document(s) ACETAMINOPHEN < 2.0 ug/mL 0-[facility] Source [id number] 02/20/2021 11:36:00 PM EDT [facility] Name Value Range Interpretation Code Description Data Stephanie rce(s) Supporting Document(s) ETOH NONE DETECTED [facility] NONE DETECTED ID Date Data Source [id number] 02/20/2021 11:36:00 PM EDT [facility] Name Value Range Interpretation Code Description Data Stephanie rce(s) Supporting Document(s) GLU 97 mg/dL 70-110 [facility] Patients taking Sulfasalazine may have f alsely depressedGlucose levels. Patients taking Sulfapyridine may havefalsely elevated Glucose levels. Patients should be drawnfor Glucose before the initial administration of eitherdrug. BUN 13 mg/dL 7-23 [facility] CRE 0.631 mg/dL 0.500-1.300 [facility] GFR > 60 mL/min [facility] CHLORIDE 109 mmol/L 99-110 [facility] NA 141 mmol/L 136-147 [facility] POTASSIUM 3.8 mmol/L 3.5-5.1 [facility] TCO2 25 mmol/L 20-33 [facility] ANION GAP 10.8 10.0-20.0 [facility] CA 8.7 mg/dL 8.3-10.7 [facility] ALKALINE PHOS 124 U/L 45-117 [facility] TP 7.4 g/dL 6.0-7.8 [facility] ALB 3.6 g/dL 3.5-5.0 [facility] ESRD Dialysis patient Albumin reference range: 2.9-4.4 g/dL GL 3.8 g/dL 2.3-3.5 [facility] A/G 0.9 1.0-2.5 [facility] T. BILIRUBIN 0.3 mg/dL 0.1-1.1 [facility] [place] Total Bilirubin is n ot recommended forpatients undergoing treatment with eltrombopag (Promacta)due to the potential for falsely elevated results. ALTI 40 U/L 6-54 [facility] Patients taking Sulfasalazine and/or Sul fapyridine may havefalsely depressed ALT levels. Patients should be drawn forALT before the initial administration of either drug. AST 17 U/L 6-38 [facility] Patients taking Sulfasalazine and/or Sul fapyridine may havefalsely depressed AST levels. Patients should be drawn forAST before the initial administration of either drug. ID Date Data Source [id number] 02/20/2021 11:14:00 PM EDT [facility] Name Value Range Interpretation Code Description Data Stephanie rce(s) Supporting Document(s) WBC 9.78 x10E3/uL 4.0-10.5 [facility] RBC 4.25 x10E6/uL 4.20-5.40 [facility] Hemoglobin 12.6 g/dL 12.0-16.0 [facility] Hematocrit 38.2 % 37.0-47.0 [facility] MCV 89.9 fL 81.0-99.0 [facility] MCH 29.6 pg 27.0-31.0 [facility] MCHC 33.0 g/dL 32.7-35.6 [facility] RDW 12.2 % 11.5-14.0 [facility] Platelet count 225 x10E3/uL 150-450 [facility] ital MPV 9.6 fl 6.9-9.5 [facility] Neutrophils 59.2 % 34-64 [facility] Lymphocytes 31.5 % 25-45 [facility] Monocytes 7.1 % 1.7-10.6 [facility] Eosinophils 1.5 % 0.4-7.0 [facility] Basophils 0.2 % 0.1-2.0 [facility] Imm. Gran. 0.5 % 0.1-2.0 [facility] Abs. Neutro. 5.79 x10E3/uL 1.2-7.6 [facility] Lymph. 3.08 x10E3/uL 1.0[facility]3.[facility] Will. 0.69 x10E3/uL 0.1-1.0 [facility] Eosin. 0.15 x10E3/uL 0.1-0.7 [facility] Baso. 0.02 x10E3/uL 0.0-0.1 [facility] Abs[facility] Imm. Gran. 0.05 x10E3/uL 0.0-0.1 [facility] spital ANRBC% 0 % 0 [facility] ID Date Data Source [id number] 02/20/2021 11:37:00 PM EDT [facility] Name Value Range Interpretation Code Description Data Stephanie rce(s) Supporting Document(s) PCP VISTA NEG NEGATIVE [facility] MINIMUM LEVEL OF DETECTION IS 25 ng/ml BENZODIAZEPINES NEG NEGATIVE [facility] al MINIMUM LEVEL OF DETECTION IS 200 ng/ml COCAINE VISTA NEG NEGATIVE [facility] MINIMUM LEVEL OF DETECTION IS 300 ng/ml AMPHETAMINES NEG NEGATIVE [facility] al MINIMUM LEVEL OF DETECTION IS 1000 ng/ml BARBITURATES NEG NEGATIVE [facility] al CUTOFF CONCENTRATION IS 200 ng/ml CANNABINOIDS NEG NEGATIVE [facility] al CUTOFF CONCENTRATION IS 50 ng/ml METHADONE VISTA NEG NEGATIVE [facility] al MINIMUM LEVEL OF DETECTION IS 300 ng/ml OPIATE VISTA NEG NEGATIVE [facility] MINIMUM DETECTION LEVEL IS 300 ng/ml ID Date Data Source [id number] 02/20/2021 11:27:00 PM EDT [facility] Name Value Range Interpretation Code Description Data Stephanie rce(s) Supporting Document(s) URINE COLOR Yellow [facility] UAPR Cloudy [facility] UGLU Negative NEGATIVE [facility] URINE BILIRUBIN Negative NEGATIVE [facility] al UKET Negative NEGATIVE [facility] USG 1.019 1.010-1.025 [facility] UBLO Negative NEGATIVE [facility] UpH 6.5 5.0-8.0 [facility] UPRO Negative Negative [facility] UUB 1.0 mg/dL 0.2-1.0 [facility] UNIT Negative Negative [facility] ULEU Trace Negative [facility] ID Date Data Source [id number] 02/20/2021 11:27:00 PM EDT [facility] Name Value Range Interpretation Code Description Data Stephanie rce(s) Supporting Document(s) URINE RBC 0-2 RBCs/HPF NONE SEEN [facility] URINE WBC 3-5 WBCs/HPF NONE SEEN [facility] URINE BACTERIA Few [facility]INE EPI. Few NONE SEEN [facility] URINE CRYSTAL MODERATE AMORPHOUS NONE SEEN [facility] ID Date Data Source [id number] 02/21/2021 05:23:00 PM EDT [facility] [place] Physician DocumentationClaxton-Naveen Hinkle edical CenterName: Yareli DuvallAge: 20 yrsSex: FemaleDOB: 2000MRN: [id number] Date: 02/20/2021Time: 22:45Account#: [id number] 3Polga MD:ED Physician Alissa العلي Summary:02/21/21 13:10[facility] seCondition: Stable seProblem: an ongoing problem seSymptoms: have worsened seAccepting Physician: Dr. Estrada accepts in transfer to [address]02/21/21 17:23)Diagnosis- Major depressive disorder, recurrent, unspecified se- Suicidal ideations seForms:- Medication Reconciliation se- Medication Reconciliation Form - 2nd Copy seHPI:02/1305:25 This 20 yrs old White Female presents to ER via Police with vn3srifpigepp of Psych Problem.05:25 The patient presents to the emergency department with depression, ir5pbcpjqa ideation, but the patient has no formulated plan. Onset: Thesymptoms/episode began/occurred 2 week(s) ago. Associated signs andsymptoms: The patient has no apparent associated signs or sy mptoms.Severity of symptoms: At their worst the symptoms were moderate. Thepatient has experienced similar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 [id number] 01/28/2021 09:45:00 AM EDT [facility] [address] PROGRESS NOTEPATIENT NAME: YARELI HATCH PHYSICIAN: BROOKLYN ONEILL MDAUTHOR: Lana Aquino. DATE: 01/03/21 MR#: [id number] NOTE DATE: 01/28/21 RM#: 308EVALUATION TIME: 954 [...] rce(s) Supporting Document(s) ID Date Data Source [id number] 01/27/2021 10:15:00 AM EDT [facility] HEALTH PROGRESS NOTEPATIENT NAME: YARELI HATCH PHYSICIAN: BROOKLYN ONEILL MDAUTHOR: Gema WHITE,DylanADM. DATE: 01/03/21 MR#: [id number] NOTE DATE: 01/27/21 RM#: 308EVALUATION TIME: 1114 is a 20-year-old white female.CC/Hx Present Illness"I overdosed"Events Since Last EntryPatient met with team today and presented as disheveled, unkempt, andmalodorous. Present were myself, potable water treatment operator, and charge nurse.Weekend events were discussed. Patient [...] focused on havingmore one-on-one attention with her potable water treatment operator. She was told due toher behaviors over [...] hasbeen receiving. Still awaiting bed availability at [facility] for housing as per herAOT. She currently [...] rce(s) Supporting Document(s) ID Date Data Source [id number] 02/03/2021 11:47:00 AM EDT [facility] [place] [id number] HEALTH PROGRESS NOTEPATIENT NAME: YARELI HATCH CATSALVADOR PHYSICIAN: BROOKLYN ONEILL MDAUTHOR: Pasquale WHITE,nAa. DATE: 01/03/21 MR#: [id number] NOTE DATE: 01/26/21 RM#: 308EVALUATION TIME: 1154 [...] rce(s) Supporting Document(s) ID Date Data Source [id number] 01/24/2021 09:36:00 AM EDT [place] [id number] HEALTH PROGRESS NOTEPATIENT NAME: YARELI HATCH CATSALVADOR PHYSICIAN: BROOKLYN ONEILL, MDAUTHOR: Lana Aquino. DATE: 01/03/21 MR#: [id number] NOTE DATE: 01/24/21 RM#: 308EVALUATION TIME: 951 is a 20-year-old white female.CC/Hx Present Illness"I overdosed"Events Since Last EntryPatient presented as unkempt, disheveled and malodorous today. We discussedJelenahaela's good behaviors from yesterday and we also discussed boundaries todayin regards to staff and her potable water treatment operator. Patient became upset whenwe discussed boundaries and [...] breath that was not audible to myself,the potable water treatment operator or the charge nurse.Mental status exam: Patient [...] rce(s) Supporting Document(s) ID Date Data Source [id number] 01/23/2021 09:20:00 AM EDT [address] PROGRESS NOTEPATIENT NAME: YARELI HATCH PHYSICIAN: BROOKLYN ONEILL MDAUTHOR: Lana Aquino. DATE: 01/03/21 MR#: [id number] NOTE DATE: 01/23/21 RM#: 308EVALUATION TIME: 935 is a 20-year-old white female.CC/Hx Present Illness"I overdosed"Events Since Last EntryPresented today as cooperative and pleasant. In the meeting today the chargenurse was present, myself, and her potable water treatment operator Madelin. We discussedthe events yesterday that led [...] also wrote a letter inputted underneath the potable water treatment operator'sdoor and inquired about this. This was discussed [...] of care.Continuing to await bed availability at [facility].ObjectiveVital SignsVital Signs-LastResult Date TimeB/P 118/78 01/23 [...] rce(s) Supporting Document(s) ID Date Data Source [id number] 01/22/2021 11:07:00 AM EDT [address] HEALTH PROGRESS NOTEPATIENT NAME: YARELI HATCH PHYSICIAN: BROOKLYN ONEILL MDAUTHOR: Lana Aquino. DATE: 01/03/21 MR#: [id number] NOTE DATE: 01/22/21 RM#: 308EVALUATION TIME: 1116 [...] Continue to await for bed availability at [facility].Patient denies any physical and/or medical concerns [...] rce(s) Supporting Document(s) ID Date Data Source [id number] 01/21/2021 08:25:00 AM EDT [address] [address] HEALTH PROGRESS NOTEPATIENT NAME: YARELI HATCH CATTENGIOVANNY PHYSICIAN: BROOKLYN ONEILL MDAUTHOR: Lana Aquino. DATE: 01/03/21 MR#: [id number] NOTE DATE: 01/21/21 RM#: [id number] TIME: 1000 [...] to wait for an open bed at [facility] for housing.ObjectiveVital SignsVital Signs-LastResult Date TimeB/P [...] rce(s) Supporting Document(s) ID Date Data Source [id number] 01/20/2021 11:20:00 AM EDT [address] HEALTH PROGRESS NOTEPATIENT NAME: YARELI HATCH PHYSICIAN: BROOKLYN ONEILL MDAUTHOR: Lana Aquino. DATE: 01/03/21 MR#: [id number] NOTE DATE: 01/20/21 RM#: 3RDOVERFLEVALUATION TIME: 1255 [...] would notice. [facility] [...] safety. Continue to await bed availability at [facility] for placement as per [facility] order. Lab work will again be [...] rce(s) Supporting Document(s) ID Date Data Source [id number] 01/18/2021 09:57:00 AM EDT [facility] [place] Name Value Range Interpretation Code Description Data Stephanie rce(s) Supporting Document(s) CHOL 182 mg/dL 100-200 [facility] TRIG 118 mg/dL 30-190 [facility] HDL 52 mg/dL 35-80 [facility] LDL DIRECT 111 mg/dL 0-100 [facility] VLDL 19 mg/dL 0-100 [facility] ID Date Data Source [id number] 01/18/2021 09:57:00 AM EDT [facility] Name Value Range Interpretation Code Description Data Stephanie e(s) Supporting Document(s) GLU 113 mg/dL 70-110 [facility] Patients taking Sulfasalazine may have f alsely depressedGlucose levels. Patients taking Sulfapyridine may havefalsely elevated Glucose levels. Patients should be drawnfor Glucose before the initial administration of eitherdrug. BUN 17 mg/dL 7-23 [facility] CRE 0.741 mg/dL 0.500-1.300 [facility] GFR > 60 mL/min [facility] CHLORIDE 107 mmol/L 99-110 [facility] NA 142 mmol/L 136-147 [facility] POTASSIUM 4.4 mmol/L 3.5-5.1 [facility] TCO2 30 mmol/L 20-33 [facility] ANION GAP 9.4 10.0-20.0 [facility] CA 9.2 mg/dL 8.3-10.7 [facility] ALKALINE PHOS 111 U/L 45-117 [facility] TP 7.3 g/dL 6.0-7.8 [facility] ALB 3.9 g/dL 3.5-5.0 [facility] ESRD Dialysis patient Albumin reference range: 2.9-4.4 g/dL GL 3.4 g/dL 2.3-3.5 [facility] A/G 1.1 1.0-2.5 [facility] T. BILIRUBIN 0.5 mg/dL 0.1-1.1 [facility] [place] Total Bilirubin is n ot recommended forpatients undergoing treatment with eltrombopag (Promacta)due to the potential for falsely elevated results. ALTI 57 U/L 6-54 [facility] Patients taking Sulfasalazine and/or Sul fapyridine may havefalsely depressed ALT levels. Patients should be drawn forALT before the initial administration of either drug. AST 31 U/L 6-38 [facility] Patients taking Sulfasalazine and/or Sul fapyridine may havefalsely depressed AST levels. Patients should be drawn forAST before the initial administration of either drug. ID Date Data Source [id number] 01/17/2021 10:24:00 AM EDT [facility] [place], [place] [address]MENTAL HEALTH PROGRESS NOTEPATIENT NAME: YARELI HATCH PHYSICIAN: BROOKLYN ONEILL MDAUTHOR: Lana Aquino. DATE: 01/03/21 MR#: [id number] NOTE DATE: 01/17/21 RM#: 3RDOVERFLEVALUATION TIME: 1036 [...] complaints.He said she spoke with her intensive immigration case manager yesterday, Eve and theycompleted the enrollment paperwork required the intensive case managementprogram. She also said she spoke with Lorraine Regarding a bed at [facility] andaccording to the director of the TLS program there is still no open beds.Marliu reacted appropriately when she was informed that [...] rce(s) Supporting Document(s) ID Date Data Source [id number] 01/16/2021 01:40:00 PM EDT [address] [address]FT[place] HEALTH PROGRESS NOTEPATIENT NAME: YARELI HATCH PHYSICIAN: BROOKLYN ONEILL MDAUTHOR: Gema WHITE,Lana. DATE: 01/03/21 MR#: [id number] NOTE DATE: 01/16/21 RM#: 3RDOVERFLEVALUATION TIME: 1413 is a 20-year-old white female.CC/Hx Present Illness"I overdosed"Events Since Last EntryPatient [facility], unkempt in [...] directed back to her [facility]presentation [facility] which was bright and cheerful and [...] Shortly afterthe meeting she approached Gloria her potable water treatment operator asking to be put onthe Abilify injection [...] and maintain safety. Await bed availability at [facility] as in accordancewith her AOT. Monitor [...] rce(s) Supporting Document(s) ID Date Data Source [id number] 01/16/2021 10:03:00 AM EDT [facility] Exam Number: [id number] Reported By: - JEREMIAH PEOPLES MD Signed By: JEREMIAH PEOPLES MD Name Value Range Interpretation Code Description Data Stephanie rce(s) Supporting Document(s) ID Date Data Source [id number] 01/15/2021 11:23:00 AM EDT [address] HEALTH PROGRESS NOTEPATIENT NAME: YARELI HATCH PHYSICIAN: BROOKLYN ONEILL MDAUTHOR: Lana Aquino. DATE: 01/03/21 MR#: [id number] NOTE DATE: 01/15/21 RM#: 3RDOVERFLEVALUATION TIME: 1136 [...] wait for a bed tobecome available at [facility] as per her AOTDATE SIGNED: 01/15/21 Electronically SignedTIME SIGNED: 1136 DYLAN RIBEIRO Name Value Range Interpretation Code Description Data Stephanie rce(s) Supporting Document(s) ID Date Data Source [id number] 01/14/2021 03:17:00 PM EDT [address] HEALTH PROGRESS NOTEPATIENT NAME: YARELI HATCH CATTENDING PHYSICIAN: BROOKLYN ONEILL MDAUTHOR: Gema WHITE,Lana. DATE: 01/03/21 MR#: [id number] NOTE DATE: 01/14/21 RM#: 320EVALUATION TIME: 1523 [...] rce(s) Supporting Document(s) ID Date Data Source [id number] 01/11/2021 10:27:00 AM EDT [place] [id number] HEALTH PROGRESS NOTEPATIENT NAME: YARELI HATCH PHYSICIAN: BROOKLYN ONEILL MDAUTHOR: Alfred SMITH,Hussain. DATE: 01/03/21 MR#: [id number] NOTE DATE: 01/11/21 RM#: 320EVALUATION TIME: 1038 [...] rce(s) Supporting Document(s) ID Date Data Source [id number] 01/10/2021 11:17:00 AM EDT [facility] [place], [place] [address]MENTAL HEALTH PROGRESS NOTEPATIENT NAME: YARELI HATCH CHANELLGIOVANNY PHYSICIAN: BROOKLYN ONEILL MDAUTHOR: Lana Aquino. DATE: 01/03/21 MR#: [id number] NOTE DATE: 01/10/21 RM#: 320EVALUATION TIME: 112 [...] rce(s) Supporting Document(s) ID Date Data Source [id number] 01/09/2021 03:23:00 PM EDT [place], [place] [address]MENTAL HEALTH PROGRESS NOTEPATIENT NAME: YARELI HATCH CATTENGIOVANNY PHYSICIAN: BROOKLYN ONEILL MDAUTHOR: Gema WHITE,DylanADM. DATE: 01/03/21 MR#: [id number] NOTE DATE: 01/09/21 RM#: 320EVALUATION TIME: 1527 is a 20-year-old white female.CC/Hx Present Illness"I overdosed"Events Since Last EntryYareli met with treatment team today and she presented overly bright. Shetalked about her bath last night that she took with staff in the [employer]. She expressed excitement regarding this as this [...] rce(s) Supporting Document(s) ID Date Data Source [id number] 01/09/2021 08:36:00 AM EDT [address] [address] HEALTH PROGRESS NOTEPATIENT NAME: YARELI HATCH CATTENGIOVANNY PHYSICIAN: BROOKLYN ONEILL MDAUTHOR: Lana Aquino. DATE: 01/03/21 MR#: [id number] NOTE DATE: 01/09/21 #: 320EVALUATION TIME: 908 AddendumSubjectiveIdentificationThiselena is a 20-year-old [...] in process and awaitingfor bed availability at [facility].Assessment/PlanDiagnosis1. Suicide attemptStatus Acute2. Major depressive disorderStatus [...] rce(s) Supporting Document(s) ID Date Data Source [id number] 01/07/2021 02:35:00 PM EDT [address] HEALTH PROGRESS NOTEPATIENT NAME: YARELI HATCH CATTENDING PHYSICIAN: BROOKLYN ONEILL MDAUTHOR: Surendra SMITH,P.ADM. DATE: 01/03/21 MR#: [id number] NOTE DATE: 01/07/21 RM#: 320EVALUATION TIME: 1436 is a 20-year-old white female.CC/Hx Present Illness"I overdosed"Events Since Last EntryYareli was seen today along with the potable water treatment operator, Gloria, and a [facility]student [facility]. She believes herself to be Romel today. Shestates she is doing well. She expressed her interest in AOT for 6 months. Iinformed the patient that we have talked to Omi Tovar about her interest.Patient states she just want to leave the place and go outside. Patient doesnot have any address to discharge to. She states [facility]. Patient was informed that there are beds open in [facility] andshe could be transferred there. She was fixated on her discharge and statedthat she does not want to be hospitalized for longer duration.Yareli continues to be irritable and labile affect. [facility] [...] with Lorraine Hogan and other agencies including [facility] for housing.Will increase her Latuda.Portions of this section were scribed by Shell Ariza on 01/10/21 at 1646DATE SIGNED: 01/10/21 Electronically SignedTIME SIGNED: 1648 BROOKLYN ONEILL MD Name Value Range Interpretation Code Description Data Stephanie rce(s) Supporting Document(s) ID Date Data Source [id number] 01/06/2021 02:26:00 PM EDT [place] [id number] HEALTH PROGRESS NOTEPATIENT NAME: YARELI HATCH CATTENDING PHYSICIAN: BROOKLYN ONEILL MDAUTHOR: Surendra SMITH,P.ADM. DATE: 01/03/21 MR#: [id number] NOTE DATE: 01/06/21 RM#: [id number] TIME: 1427 is a 20-year-old white female.CC/Hx Present Illness"I overdosed"Events Since Last EntryYareli was seen today along with the potable water treatment operator, Gloria. Patientwas brought to the ER by rescue squad due to overdose. [facility] in [place], which then she was brought to the [facility] in [facility]. She is on waiting list for [facility] in [place] but isunsure how long will it take. She states she drank a lot of coffee which causedher to be awake whole night and she spent more than 24 hours awake. She gotoverwhelmed and overdosed on Ibuprofen and Prove ntil as she was annoyed by acase video manager who was trying to get her [...] 01/06 0859Resp 18 01/06 0634Current MedicationsMiscellaneous Read [id number] NANicotine (Nicorette) 2 MG Q2HPRN PRN POCarbamide [...] plan and housing. We are working with [facility] and other housingagencies such as [facility] for supportive housing options.Portions of this section were scribed by Shell Ariza on 01/10/21 at 1643DATE SIGNED: 01/10/21 Electronically SignedTIME SIGNED: 164 BROOKLYN ONEILL MD Name Value Range Interpretation Code Description Data Stephanie rce(s) Supporting Document(s) ID Date Data Source [id number] 01/04/2021 09:49:00 AM EDT [address] PSYCHIATRIC ASSESSMENTPATIENT NAME: YARELI HATCH MR#: [id number] PHYSICIAN: AMADA SIMON MDAUTHOR: Alfred SMITH,Amada DATE: 01/03/21 RM#: [id number]atient is a 20-year-old white female who was brought to [facility] ED by rescuesquad.Chief Complaint"I overdosed"Reason for AdmissionPatient overdosed on Ibuprofen and Proventil. Patient is not sure why she didit, but she also states that it may have been a suicidal attempt. Her sleep isok. Appetite is good. She has a hx of impulse control problem. She has beenfeeling hopelese, helpless and depressed at times. She was living at [facility]. Shehas been been asked by the [facility] not to return back with them, so she is homelessat this time.History of Presenting IllnessPatient was brought to ED by rescue squad due to overdose. [facility], to [facility], which then she was brought to the [facility] building in [facility]. Sheis on the waiting list for [facility] in [place] but is unsure on how long it willtake. Patient has a long history of suicidal attempts, and also has hadnumerous inpatient admissions to this facility and to other facilities throughout [facility].Portions of this section were scribed [...] of Knowledge: awareness of low normal rangeAdditional [id number]-gfdp-koq white female who was cooperative during the [...] rce(s) Supporting Document(s) ID Date Data Source [id number] 01/03/2021 05:30:00 PM EDT [address] HEALTH HISTORY AND PHYSICALPATIENT NAME: YARELI HATCH MR#: [id number] PHYSICIAN: AMADA SIMON MDAUTHOR: Theresa Melchor DATE: [...] MeanPulse Ox 99 99 99O2 DeliveryO2 Flow EmqtAwL6Ezbhvxdz ExaminationGeneral Appearance no acute distress, conversant, face [...] CloudyUrine pH (5.0 - 8.0) 6.0Ur Specific [place] (1.010 - 1.025) 1.033 HUrine Protein (Negative) 2+Urine Ketones (NEGATIVE) TraceUrine Blood (NEGATIVE) NegativeUrine Nitrite (Negative) NegativeUr Bilirubin Confirm (NEGATIVE) NegativeUrine Urobilinogen (0.2 - 1.0 mg/dL) 1.0Urine Leukocytes (Negative) NegativeUrine RBC (NONE SEEN) 0-2 RBCs/HPFUrine WBC (NONE SEEN) 0-2 WBCs/HPFUrine Crystals (NONE SEEN) MODERATE AMORPHOUSUrine Bacteria (NONE SEEN) ModerateUrine Glucose (NEGATIVE) Jmazcrye35/[id number]-49 (CORDELL) (NEGATIVE) ACEMDEFFDoydtwelgukg57/24 1602 URINE,CC: Urine Culture - RESAssessment/PlanDiagnosis/Problem1. Suicide attemptStatus Acute2. Major depressive disorderStatus Chronic3. Bipolar affective disorderStatus Chronic4. Borderline personality disorderStatus Chronic5. Obesity, morbidStatus Street Light Inspector nicAdditional NotesWill defer psychiatric problems to our psychiatry teamPatient denies medical issues at present and she has been cleared medically.Resuscitation status Full codePlan discussed with patientCase discussed with nursing staffCopies ToCopies to Family Provider: NO,ONEDATE SIGNED: 01/03/21 Electronically SignedTIME SIGNED: 180 THERESA MELCHOR Name Value Range Interpretation Code Description Data Stephanie rce(s) Supporting Document(s) ID Date Data Source [id number] 01/03/2021 12:52:00 PM EDT [facility] Name Value Range Interpretation Code Description Data Stephanie rce(s) Supporting Document(s) LCOVID-19, CORDELL NEGATIVE [facility] This lab was ordered by [facility] and reported by [facility]. ID Date Data Source [id number] 01/03/2021 01:43:00 PM EDT [facility] Name Value Range Interpretation Code Description Data Stephanie rce(s) Supporting Document(s) COVID-19, CORDELL NEGATIVE NEGATIVE [facility] Methodology: Isothermal Nucleic Acid Amp lification [...] Emergency Use Authorization. ID Date Data Source [id number] 01/02/2021 04:50:00 PM EDT [facility] Name Value Range Interpretation Code Description Data Stephanie rce(s) Supporting Document(s) PCP VISTA NEG NEGATIVE [facility] MINIMUM LEVEL OF DETECTION IS 25 ng/ml BENZODIAZEPINES NEG NEGATIVE [facility] MINIMUM LEVEL OF DETECTION IS 200 ng/ml COCAINE VISTA NEG NEGATIVE [facility] MINIMUM LEVEL OF DETECTION IS 300 ng/ml AMPHETAMINES NEG NEGATIVE [facility] al MINIMUM LEVEL OF DETECTION IS 1000 ng/ml BARBITURATES NEG NEGATIVE [facility] al CUTOFF CONCENTRATION IS 200 ng/ml CANNABINOIDS NEG NEGATIVE [facility] al CUTOFF CONCENTRATION IS 50 ng/ml METHADONE VISTA NEG NEGATIVE [facility] MINIMUM LEVEL OF DETECTION IS 300 ng/ml OPIATE VISTA NEG NEGATIVE [facility] MINIMUM DETECTION LEVEL IS 300 ng/ml ID Date Data Source [id number] 01/02/2021 04:36:00 PM EDT [facility] Urine Bilirubin test must be confirmed w ith Ictotest Method Urine Bilirubin test must be confirmed w ith Ictotest Method Name Value Range Interpretation Code Description Data Stephanie rce(s) Supporting Document(s) URINE COLOR DK YELLOW [facility] UAPR Cloudy [facility] UGLU Negative NEGATIVE [facility] URINE BILIRUBIN Negative NEGATIVE [facility] al UKET Trace NEGATIVE [facility] USG 1.033 1.010-1.025 [facility] UBLO Negative NEGATIVE [facility] UpH 6.0 5.0-8.0 [facility] UPRO 2+ Negative [facility] UUB 1.0 mg/dL 0.2-1.0 [facility] UNIT Negative Negative [facility] ULEU Negative Negative [facility] ID Date Data Source [id number] 01/02/2021 04:36:00 PM EDT [facility] Urine Bilirubin test must be confirmed w ith Ictotest Method Urine Bilirubin test must be confirmed w ith Ictotest Method Name Value Range Interpretation Code Description Data Stephanie rce(s) Supporting Document(s) URINE RBC 0-2 RBCs/HPF NONE SEEN [facility] URINE WBC 0-2 WBCs/HPF NONE SEEN [facility] URINE BACTERIA Moderate NONE SEEN [facility] l A URINE CULTURE HAS BEEN ADDED TO THIS S PECIMEN URINE EPI. Moderate NONE SEEN [facility] URINE CRYSTAL MODERATE AMORPHOUS NONE SEEN [facility] ID Date Data Source [id number] 01/02/2021 04:00:00 PM EDT [facility] Name Value Range Interpretation Code Description Data Stephanie rce(s) Supporting Document(s) WBC 9.40 x10E3/uL 4.0-10.5 [facility] RBC 4.29 x10E6/uL 4.20-5.40 [facility] Hemoglobin 13.0 g/dL 12.0-16.0 [facility] Hematocrit 38.1 % 37.0-47.0 [facility] MCV 88.8 fL 81.0-99.0 [facility] MCH 30.3 pg 27.0-31.0 [facility] MCHC 34.1 g/dL 32.7-35.6 [facility] RDW 12.0 % 11.5-14.0 [facility] Platelet count 278 x10E3/uL 150-450 [facility] ital MPV 9.1 fl 6.9-9.5 [facility] Neutrophils 58.6 % 34-64 [facility] Lymphocytes 32.4 % 25-45 [facility] Monocytes 8.1 % 1.7-10.6 [facility] Eosinophils 0.4 % 0.4-7.0 [facility] Basophils 0.2 % 0.1-2.0 [facility] Imm. Gran. 0.3 % 0.1-2.0 [facility] Abs. Neutro. 5.50 x10E3/uL 1.2-7.6 [facility] Abs. Lymph. 3.05 x10E3/uL 1.0-3.5 [facility] Abs. Will. 0.76 x10E3/uL 0.1-1.0 [facility] Abs. Eosin. 0.04 x10E3/uL 0.1-0.7 [facility] Abs. Baso. 0.02 x10E3/uL 0.0-0.1 [facility] Abs. Imm. Gran. 0.03 x10E3/uL 0.0-0.1 [facility] ANRBC% 0 % 0 [facility] ID Date Data Source [id number] 01/02/2021 05:13:00 PM EDT [facility] Name Value Range Interpretation Code Description Data Stephanie rce(s) Supporting Document(s) SALICYLATE < 1.7 mg/dL 0.0-20.0 [facility] ID Date Data Source [id number] 01/02/2021 05:13:00 PM EDT [facility] Name Value Range Interpretation Code Description Data Stephanie rce(s) Supporting Document(s) ACETAMINOPHEN < 2.0 ug/mL 0-30 [facility] ID Date Data Source [id number] 01/02/2021 05:13:00 PM EDT [facility] Name Value Range Interpretation Code Description Data Stephanie rce(s) Supporting Document(s) HCG QUAL SERUM Negative Negative [facility] ID Date Data Source [id number] 01/02/2021 05:13:00 PM EDT [facility] Name Value Range Interpretation Code Description Data Stephanie rce(s) Supporting Document(s) ETOH NONE DETECTED [facility] NONE DETECTED ID Date Data Source [id number] 01/02/2021 05:13:00 PM EDT [facility] Name Value Range Interpretation Code Description Data Stephanie rce(s) Supporting Document(s) GLU 119 mg/dL 70-110 [facility] Patients taking Sulfasalazine may have f alsely depressedGlucose levels. Patients taking Sulfapyridine may havefalsely elevated Glucose levels. Patients should be drawnfor Glucose before the initial administration of eitherdrug. BUN 14 mg/dL 7-23 [facility] CRE 0.783 mg/dL 0.500-1.300 [facility] GFR > 60 mL/min [facility] CHLORIDE 109 mmol/L 99-110 [facility] NA 144 mmol/L 136-147 [facility] POTASSIUM 3.6 mmol/L 3.5-5.1 [facility] TCO2 26 mmol/L 20-33 [facility] ANION GAP 12.6 10.0-20.0 [facility] CA 9.2 mg/dL 8.3-10.7 [facility] ALKALINE PHOS 110 U/L 45-117 [facility] TP 7.8 g/dL 6.0-7.8 [facility] ALB 4.0 g/dL 3.5-5.0 [facility] ESRD Dialysis patient Albumin reference range: 2.9-4.4 g/dL GL 3.8 g/dL 2.3-3.5 [facility] A/G 1.1 1.0-2.5 [facility] T. BILIRUBIN 0.3 mg/dL 0.1-1.1 [facility] [place] Total Bilirubin is n ot recommended forpatients undergoing treatment with eltrombopag (Promacta)due to the potential for falsely elevated results. ALTI 47 U/L 6-54 [facility] Patients taking Sulfasalazine and/or Sul fapyridine may havefalsely depressed ALT levels. Patients should be drawn forALT before the initial administration of either drug. AST 26 U/L 6-38 [facility] Patients taking Sulfasalazine and/or Sul fapyridine may havefalsely depressed AST levels. Patients should be drawn forAST before the initial administration of either drug. ID Date Data Source [id number] 01/03/2021 02:47:00 PM EDT [facility] Physician DocumentationClaxacutecare health system-Nave[facility] M edical CenterName: Yareli AdamelAge: 20 yrsSex: FemaleDOB: 2000MRN: [id number] Date: 01/02/2021Time: 15:23Account#: [id number] MD: NONE, - Per PatientED Physician Alissa [...] 2 hours ago. She was upsetat her immigration case manager. She says she drank a lot [...] Smoking status: Patient states was never smoker oftoQalendrao. ETOH status Denies use of ETOH The patient lives in [facility].- Advance Directives:: None.ROS:16:57 Constitutional: Negative for [...] at change of shift. A change of fb4ferfw patient was pending PSA evaluation and disposition. [...] Complete Time: 18:47 :37 Order name: Urine KpqaixcKGPH42/2513:05 Interpretation: Within normal limits. :44 Order name: COVID-19 PROF; Complete Time: 18:18LLBD20/2518:46 Interpretation: Within normal limits. :49 Order name: Belongings List :49 Order name: Document Weight and Height for BMI :49 Order name: Mental Health Evaluation :49 Order name: Mental Health Level 3 :49 Order name: VS q 4h :05 Order name: Medically Cleared for Eval by-Psychosocial, Prep Manager se(.PSA); Complete Time: 20:19Dispensed Medications:12/2500:23 Drug: A cetaminophen 650 mg [acetaminophen 325 mg tablet (2 tabs)] rg7Ekoqw: PO;Signatures:Dispatcher [employer] Vincenzo Acosta RN RN fbgElliott, Suzanne, MD MD seHowland, Todd, MD MD th4Marcellus, Courtney, RN RN oj6Ruviqjvozaw: (The following items were deleted from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 wantto fail. She states [facility] failed her so many times in the [...] that as she is under jurisdiction of [facility] and is under AOT theycarolenot do that. Patient states she feels [place] would be a better place forher to stay as compared to [place]. I Informed the patient that Residenciesand institutions in [place] has also rejected her. I also explained to thepatient that I will be happy to transfer her to [place] if she is acceptedthere. I told the patient that I will talk to the treatment team to see ifthere is any chance if she gets placed in TLS in [place]. I also counselledthe patient that she is [...] rce(s) Supporting Document(s) ID Date Data Source [id number] 12/19/2020 02:18:00 PM [place]T [place] [address]MENTAL HEALTH PROGRESS NOTEPATIENT NAME: YARELI HATCH CATSALVADOR PHYSICIAN: BROOKLYN ONEILL MDAUTHOR: Surendra SMITH,P.ADM. DATE: 10/31/20 MR#: [id number] NOTE DATE: 12/19/20 RM#: 310EVALUATION TIME: 1420 is 20-year-old female, currently single, past psych historyof bipolar disorder, poor impulse control and borderline personality disorderChief complaint concern about her ability to maintain safety and possiblesuicidal thoughtsEvents Since Last EntryYareli was seen today along with the potable water treatment operator, Cata, and a PAstudent from [facility]. She was in irritated mood today. [...] rce(s) Supporting Document(s) ID Date Data Source [id number] 12/18/2020 01:22:00 PM EDT [facility] [address] HE[facility] PROGRESS NOTEPATIENT NAME: YARELI HATCH CATTENDING PHYSICIAN: BROOKLYN ONEILL MDAUTHOR: Surendra SMITH,P.ADM. DATE: 10/31/20 MR#: [id number] NOTE DATE: 12/18/20 RM#: 310EVALUATION TIME: 1559 is 20-year-old female, currently single, past psych historyof bipolar disorder, poor impulse control and borderline personality disorderChief complaint concern about her ability to maintain safety and possiblesuicidal thoughtsEvents Since Last EntryYareli was seen today along with the potable water treatment operator, Gloria, and a PAstudent from [facility]. Patient seems upset today. She calmlyexpressed [...] of psychosis. Yareli was also educated about fdc therapy andcounselling.Subsequently, during the later part of [...] rce(s) Supporting Document(s) ID Date Data Source [id number] 12/17/2020 01:39:00 PM EDT [address] HEALTH PROGRESS NOTEPATIENT NAME: YARELI HATCH CATTENGIOVANNY PHYSICIAN: BROOKLYN ONEILL MDAUTHOR: Surendra SMITH,P.ADM. DATE: 10/31/20 MR#: [id number] NOTE DATE: 12/17/20 RM#: 310EVALUATION TIME: 1339 is 20-year-old female, currently single, past psych historyof bipolar disorder, poor impulse control and borderline personality disorderChief complaint concern about her ability to maintain safety and possiblesuicidal thoughtsEvents Since Last EntryYareli was seen today along with the potable water treatment operator, Gloira, and a PAstudent from [facility]. She is not satisfied with the plan of beingtransferred to [facility]. She states she feels she is forced to go to [facility], and shedoes not want to be placed there. Patient was explained she is not forced, butno other institution is ready to accept her and therefore, TLS is her onlyoption. Patient states she does not want to go to [facility] at any cost as she cannotstand to their programs. She continues to sabotage her treatment plan. She alsostates she will not open to any therapist ever; therefore, this discharge planwill not work. Subsequently, she agreed to be transferred to [facility]. She wasinformed that [facility] outpatients[facility]ices. She did not [...] member of the teamduring the meeting with [facility] that TLS will be the best program for her.Portions of this section were scribed by Shell Ariza on 12/17/20 at 1616DATE SIGNED: 12/17/20 Electronically SignedTIME SIGNED: 161 BROOKLYN ONEILL MD Name Value Range Interpretation Code Description Data Stephanie rce(s) Supporting Document(s) ID Date Data Source [id number] 12/16/2020 01:51:00 PM EDT [address] HEALTH PROGRESS NOTEPATIENT NAME: YARELI HATCH CATTENGIOVANNY PHYSICIAN: BROOKLYN ONEILL MDAUTHOR: Surendra SMITH,P.ADM. DATE: 10/31/20 MR#: [id number] NOTE DATE: 12/16/20 RM#: 310EVALUATION TIME: 1351 is 20-year-old female, currently single, past psych historyof bipolar disorder, poor impulse control and borderline personality disorderChief complaint concern about her ability to maintain safety and possiblesuicidal thoughtsEvents Since Last EntryYareli was seen today along with the potable water treatment operator, Gloria, and a PAstudent from [facility]. She continues to think she is [...] rce(s) Supporting Document(s) ID Date Data Source [id number] 12/13/2020 03:30:00 PM EDT [place] [id number] HEALTH PROGRESS NOTEPATIENT NAME: YARELI HATCH PHYSICIAN: BROOKLYN ONEILL MDAUTHOR: Surendra SMITH,P.ADM. DATE: 10/31/20 MR#: [id number] NOTE DATE: 12/13/20 RM#: 310EVALUATION TIME: 1531 is 20-year-old female, currently single, past psych historyof bipolar disorder, poor impulse control and borderline personality disorderChief complaint concern about her ability to maintain safety and possiblesuicidal thoughtsEvents Since Last EntryYareli was seen today along with the potable water treatment operator, Gloria, and a PAstudent from [facility]. She was in better mood today. [...] Patient agreed upon during the meeting with [facility] that she will beaccepted to TLS [...] rce(s) Supporting Document(s) ID Date Data Source [id number] 12/12/2020 02:53:00 PM EDT [address] HEALTH PROGRESS NOTEPATIENT NAME: YARELI HATCH CATSALVADOR PHYSICIAN: BROOKLYN ONEILL MDAUTHOR: Surendra SMITH,P.ADM. DATE: 10/31/20 MR#: [id number] NOTE DATE: 12/12/20 RM#: 310EVALUATION TIME: 1453 is 20-year-old female, currently single, past psych historyof bipolar disorder, poor impulse control and borderline personality disorderChief complaint concern about her ability to maintain safety and possiblesuicidal thoughtsEvents Since Last EntryYareli was seen today along with the potable water treatment operator, Gloria, and a PAstudent from [facility]. She reports nightmare. She stated sheexperienced [...] bestarted on [place].We had a meeting with [facility] and other agencies. In the meantime, we agreed onthat she will go [facility] [facility] when a bed opens up after the AOT is completed. Flako also get intensive case management and she will also receive [facility] teamhelp.Portions of this section were scribed [...] rce(s) Supporting Document(s) ID Date Data Source [id number] 12/11/2020 01:15:00 PM EDT [address] HEALTH PROGRESS NOTEPATIENT NAME: YARELI HATCH PHYSICIAN: BROOKLYN ONEILL MDAUTHOR: Surendra SMITH,P.ADM. DATE: 10/31/20 MR#: [id number] NOTE DATE: 12/11/20 RM#: 315EVALUATION TIME: 1316 is 20-year-old female, currently single, past psych historyof bipolar disorder, poor impulse control and borderline personality disorderChief complaint concern about her ability to maintain safety and possiblesuicidal thoughtsEvents Since Last EntryKenneth was seen today along with the potable water treatment operator, Gloria. Patientwas irritated today. She was suggested [...] side effectsAdditional NotesPlan:We have a meeting with [facility] tomorrow regarding her placement, but so far, mostinstitutions we have contacted have either denied her or unwilling to accepther. Will discuss this further with [facility] tomorrow.Portions of this section were scribed by Shell Ariza on 12/11/20 at 1717DATE SIGNED: 12/11/20 Electronically SignedTIME SIGNED: 171 BROOKLYN ONEILL MD Name Value Range Interpretation Code Description Data Stephanie rce(s) Supporting Document(s) ID Date Data Source [id number] 12/10/2020 04:02:00 PM EDT [place] [id number] HEALTH PROGRESS NOTEPATIENT NAME: YARELI HATCH CATTENDING PHYSICIAN: BROOKLYN ONEILL MDAUTHOR: Surendra SMITH,P.ADM. DATE: 10/31/20 MR#: [id number] NOTE DATE: 12/10/20 RM#: 309EVALUATION TIME: 1816 is 20-year-old female, currently single, past psych historyof bipolar disorder, poor impulse control and borderline personality disorderChief complaint concern about her ability to maintain safety and possiblesuicidal thoughtsEvents Since Last EntryYareli was seen today along with the potable water treatment operator, Gloria. She wasvery irritable with the labile [...] night. She gave a suicidenote to the potable water treatment operator indicating that she wants to end her [...] facility. We have a meeting with the [facility] on to discussplacement options for her.Portions [...] have a meeting coming up onThursday with [facility] to discuss about her placement.Portions of this section were scribed by Shell Ariza on 12/10/20 at 1814DATE SIGNED: 12/10/20 Electronically SignedTIME SIGNED: 1817 BROOKLYN ONEILL MD Name Value Range Interpretation Code Description Data Stephanie rce(s) Supporting Document(s) ID Date Data Source [id number] 12/06/2020 02:20:00 PM EDT [place] [id number] HEALTH PROGRESS NOTEPATIENT NAME: YARELI HATCH CATTENGIOVANNY PHYSICIAN: BROOKLYN ONEILL MDAUTHOR: Surendra SMITH,P.ADM. DATE: 10/31/20 MR#: [id number] NOTE DATE: 12/06/20 RM#: 310EVALUATION TIME: 1421 is 20-year-old female, currently single, past psych historyof bipolar disorder, poor impulse control and borderline personality disorderChief complaint concern about her ability to maintain safety and possiblesuicidal thoughtsEvents Since Last EntryYareli was seen today along with the potable water treatment operator, Gloria, and a PAstudent from [facility]. There is no improvement in her. [...] working on a plan to meet with [facility] and Lorraine to findappropriate place and options. Unfortunately, many supportive housing optionsare refusing to take her because of her past history with them.Portions of this section were scribed by Shell Ariza on 12/06/20 at 1457DATE SIGNED: 12/06/20 Electronically SignedTIME SIGNED: 7055 BROOKLYN ONEILL MD Name Value Range Interpretation Code Description Data Stephanie rce(s) Supporting Document(s) ID Date Data Source [id number] 12/05/2020 03:10:[facility] [place], [place] [address] HEALTH PROGRESS NOTEPATIENT NAME: DAMARISYARELI Patel PHYSICIAN: BROOKLYN ONEILL MDAUTHOR: Surendra SMITH,P.ADM. DATE: 10/31/20 MR#: [id number] NOTE DATE: 12/05/20 RM#: 310EVALUATION TIME: 1512 is 20-year-old female, currently single, past psych historyof bipolar disorder, poor impulse control and borderline personality disorderChief complaint concern about her ability to maintain safety and possiblesuicidal thoughtsEvents Since Last EntryMickyala was seen today along with the potable water treatment operator, Gloria. Patientstates she had bad dream about [...] rce(s) Supporting Document(s) ID Date Data Source [id number] 12/04/2020 03:07:00 PM EDT [address] HEALTH PROGRESS NOTEPATIENT NAME: DAMARISYARELI CAPELLAN CATTENGIOVANNY PHYSICIAN: BROOKLYN ONEILL MDAUTHOR: Surendra SMITH,P.ADM. DATE: 10/31/20 MR#: [id number] NOTE DATE: 12/04/20 RM#: 310EVALUATION TIME: 1508 is 20-year-old female, currently single, past psych historyof bipolar disorder, poor impulse control and borderline personality disorderChief complaint concern about her ability to maintain safety and possiblesuicidal thoughtsEvents Since Last EntryYareli was seen today along with the potable water treatment operator, Gloria, and a PAstudent from [facility]. She refused to see me today. [...] NotesPlan:We are still planning on meeting with [facility] regarding her.Portions of this section were scribed by Shell Ariza on 12/04/20 at 1528DATE SIGNED: 12/04/20 Electronically SignedTIME SIGNED: 1531 BROOKLYN ONEILL MD Name Value Range Interpretation Code Description Data Stephanie rce(s) Supporting Document(s) ID Date Data Source [id number] 12/03/2020 01:41:00 PM EDT [place] [id number] HEALTH PROGRESS NOTEPATIENT NAME: YARELI HATCH PHYSICIAN: BROOKLYN ONEILL MDAUTHOR: Surendra SMITH,P.ADM. DATE: 10/31/20 MR#: [id number] NOTE DATE: 12/03/20 RM#: 310EVALUATION TIME: 1346 is 20-year-old female, currently single, past psych historyof bipolar disorder, poor impulse control and borderline personality disorderChief complaint concern about her ability to maintain safety and possiblesuicidal thoughtsEvents Since Last EntryYareli was seen today along with the potable water treatment operator, Gloria. She isvery angry and agitated. I [...] rce(s) Supporting Document(s) ID Date Data Source [id number] 12/03/2020 02:56:00 PM EDT Joe [address] [id number] HEALTH PROGRESS NOTEPATIENT NAME: DAMARISJELENAYARELI CATSALVADOR PHYSICIAN: BROOKLYN ONEILL MDAUTHOR: Surendra SMITH,P.ADM. DATE: 10/31/20 MR#: [id number] NOTE DATE: 12/02/20 #: 310EVALUATION TIME: 1458 is 20-year-old female, currently single, past psych historyof bipolar disorder, poor impulse control and borderline personality disorderChief complaint concern about her ability to maintain safety and possiblesuicidal thoughtsEvents Since Last EntryYareli Was seen today along with the potable water treatment operator, Gloria, and a PAstudent from [facility]. She was in better mood. She [...] meeting schedule for her to meet with [facility] as well as Lorraine Hoganregarding her as the placement continues to be a problem.Portions of this section were scribed by Shell Ariza on 12/03/20 at 1456DATE SIGNED: 12/04/20 Electronically SignedTIME SIGNED: 1533 BROOKLYN ONEILL MD Name Value Range Interpretation Code Description Data Stephanie rce(s) Supporting Document(s) ID Date Data Source [id number] 11/29/2020 04:02:00 PM EDT [address] HEALTH PROGRESS NOTEPATIENT NAME: YARELI HATCH CATTENGIOVANNY PHYSICIAN: BROOKLYN ONEILL MDAUTHOR: Surendra SMITH,P.ADM. DATE: 10/31/20 MR#: [id number] NOTE DATE: 11/29/20 RM#: 310EVALUATION TIME: 1602 is 20-year-old female, currently single, past psych historyof bipolar disorder, poor impulse control and borderline personality disorderChief complaint concern about her ability to maintain safety and possiblesuicidal thoughtsEvents Since Last EntryYareli was seen today along with the potable water treatment operator, Gloria. She didnot allow the students to [...] rce(s) Supporting Document(s) ID Date Data Source [id number] 11/28/2020 04:08:00 PM EDT [address] HEALTH PROGRESS NOTEPATIENT NAME: DAMARISYARELI SUAREZTENGIOVANNY PHYSICIAN: BROOKLYN ONEILL MDAUTHOR: Surendra SMITH,P.ADM. DATE: 10/31/20 MR#: [id number] NOTE DATE: 11/28/20 RM#: 310EVALUATION TIME: 1624 is 20-year-old female, currently single, past psych historyof bipolar disorder, poor impulse control and borderline personality disorderChief complaint concern about her ability to maintain safety and possiblesuicidal thoughtsEvents Since Last EntryYareli was seen today along with the potable water treatment operator, Gloria, she didnot allow the student to [...] and Lorraine to arrange a meeting with [facility] to discuss aboutany other option available for her. patient has refused for any medicationchanges.Portions of this section were scribed by Shell Ariza on 11/28/20 at 1622DATE SIGNED: 11/28/20 Electronically SignedTIME SIGNED: 1625 BROOKLYN ONEILL MD Name Value Range Interpretation Code Description Data Stephanie rce(s) Supporting Document(s) ID Date Data Source [id number] 11/27/2020 03:38:00 PM EDT [address] HEALTH PROGRESS NOTEPATIENT NAME: YARELI HATCH PHYSICIAN: BROOKLYN ONEILL MDAUTHOR: Surendra SMITH,P.ADM. DATE: 10/31/20 MR#: [id number] NOTE DATE: 11/27/20 RM#: 310EVALUATION TIME: 1539 is 20-year-old female, currently single, past psych historyof bipolar disorder, poor impulse control and borderline personality disorderChief complaint concern about her ability to maintain safety and possiblesuicidal thoughtsEvents Since Last EntryYareli was seen today along with the potable water treatment operator, Gloria, and a PAstudent from [facility]. She is doing well. I was [...] insists thatI need to refer her to [facility]. But my concern is such things [...] rce(s) Supporting Document(s) ID Date Data Source [id number] 11/26/2020 02:11:00 PM EDT [address] [address] HEALTH PROGRESS NOTEPATIENT NAME: YARELI HATCH PHYSICIAN: BROOKLYN ONEILL MDAUTHOR: Surendra SMITH,P.ADM. DATE: 10/31/20 MR#: [id number] NOTE DATE: 11/26/20 RM#: 310EVALUATION TIME: 1411 is 20-year-old female, currently single, past psych historyof bipolar disorder, poor impulse control and borderline personality disorderChief complaint concern about her ability to maintain safety and possiblesuicidal thoughtsEvents Since Last EntryYareli was seen today along with the potable water treatment operator, Golria, and a PAstudent from [facility]. She was irritated and angry today. [...] We are in pursuit of an appropriate retirement or a safe dischargeoption for her. Ji Ng is coming here tomorrow, to [place] [facility] [place]. Will also consider increasing her Zyprexa.Portions of this section were scribed by Shell Ariza on 11/26/20 at 1503DATE SIGNED: 11/26/20 Electronically SignedTIME SIGNED: 1507 BROOKLYN ONEILL MD Name Value Range Interpretation Code Description Data Stephanie rce(s) Supporting Document(s) ID Date Data Source [id number] 11/25/2020 02:44:00 PM EDT [address] HEALTH PROGRESS NOTEPATIENT NAME: YARELI HATCH CATTENGIOVANNY PHYSICIAN: BROOKLYN ONEILL MDAUTHOR: Surendra SMITH,P.ADM. DATE: 10/31/20 MR#: [id number] NOTE DATE: 11/25/20 RM#: 310EVALUATION TIME: 1444 is 20-year-old female, currently single, past psych historyof bipolar disorder, poor impulse control and borderline personality disorderChief complaint concern about her ability to maintain safety and possiblesuicidal thoughtsEvents Since Last EntryYareli was seen today along with the potable water treatment operator, Gloria, and a PAstudent from [facility]. She is doing the same. She does not show anysignificant improvement. Patient was informed that we are applying for [facility] for family care. I was informed [...] has a history of being in [facility] in her childhood.Portions of this section were [...] further hospitalization. Gloria [facility] [place] [facility].Portions of this section were scribed by Shell Ariza on 11/25/20 at 1926DATE SIGNED: 11/25/20 Electronically SignedTIME SIGNED: 1934 BROOKLYN ONEILL MD Name Value Range Interpretation Code Description Data Stephanie rce(s) Supporting Document(s) ID Date Data Source [id number] 11/22/2020 10:16:00 AM EDT [facility] [place], [place] [address]MENTAL HEALTH PROGRESS NOTEPATIENT NAME: DAMARISYARELIZOIE YA PHYSICIAN: BROOKLYN ONEILL MDAUTHOR: Colleen SMITH,DhruvADM. DATE: 10/31/20 MR#: [id number] NOTE DATE: 11/22/20 RM#: 310EVALUATION TIME: 1018 [...] to go and she might go to [facility] down the road as well.Discussed with the potable water treatment operator about treatment plan that patient iscurrently being [...] rce(s) Supporting Document(s) ID Date Data Source [id number] 11/21/2020 01:41:00 PM EDT [facility] HEALTH PROGRESS NOTEPATIENT NAME: YARELI HATCH PHYSICIAN: BROOKLYN ONEILL MDAUTHOR: Surendra SMITH,P.ADM. DATE: 10/31/20 MR#: [id number] NOTE DATE: 11/21/20 RM#: 310EVALUATION TIME: 1356 [...] [facility]. [facility] [...] unable to be placed in many neighboring [facility] such [facility] where she went to retirement and then she signed out from thegroup [...] be an appropriate candidate for 24hours supervised retirement. She is not making progress. Her providers are alsoworking on finding a different placement for her. Will increase her Zyprexa andpropranolol.Portions of this section were scribed by Shell Ariza on 11/21/20 at 1357DATE SIGNED: 11/21/20 Electronically SignedTIME SIGNED: 135 BROOKLYN ONEILL MD Name Value Range Interpretation Code Description Data Stephanie rce(s) Supporting Document(s) ID Date Data Source [id number] 11/20/2020 02:02:00 PM EDT [facility] [place] [address]MENTAL HEALTH PROGRESS NOTEPATIENT NAME: YARELI HATCH CATTENGIOVANNY PHYSICIAN: BROOKLYN ONEILL MDAUTHOR: Surendra SMITH,P.ADM. DATE: 10/31/20 MR#: [id number] NOTE DATE: 11/20/20 RM#: 310EVALUATION TIME: 1403 is 20-year-old female, currently single, past psych historyof bipolar disorder, poor impulse control and borderline personality disorderChief complaint concern about her ability to maintain safety and possiblesuicidal thoughtsEvents Since Last EntryYareli was seen today along with the potable water treatment operator, Gloria, and a PAstudent from [facility]. Patient states she is very stressed. [...] to "fight the [place]". Patient went to [employer] as her primary school and then she pursued with [employer] for her high school. She reports she has been tested for low IQ in earlyage.Topic of her placement came up. Patient states [facility]. She stated she has been [...] Patient states she was kicked out [facility] in [facility]; hence, she does not wish [...] rce(s) Supporting Document(s) ID Date Data Source [id number] 11/19/2020 01:53:00 PM EDT [address] HEALTH PROGRESS NOTEPATIENT NAME: YARELI HATCH CATSALVADOR PHYSICIAN: BROOKLYN ONEILL MDAUTHOR: Surendra SMITH,P.ADM. DATE: 10/31/20 MR#: [id number] NOTE DATE: 11/19/20 RM#: 310EVALUATION TIME: 1354 is 20-year-old female, currently single, past psych historyof bipolar disorder, poor impulse control and borderline personality disorderChief complaint concern about her ability to maintain safety and possiblesuicidal thoughtsEvents Since Last EntryYareli was seen today along with the potable water treatment operator, Gloria, and a PAstudent from [facility]. Patient expressed her irritation and statedthat [...] inquireabout the AOT and her placement in [place]. She expressed her irritationrelated to her placement issue. She stated, "you do not have to take care of me". The patient states if somehow, she gets AOT and is placed in [place], itwill still not work. The patient also [...] wait and then to get into a retirement. She has difficultyrealizing the fact it is [...] also has the meeting with state like [facility]. Patientis not happy about it. I told her this is important because they are the majorresource, and they will guide us. She is not making progress.Portions of this section were scribed by Shell Ariza on 11/19/20 at 1820DATE SIGNED: 11/19/20 Electronically SignedTIME SIGNED: 1819 BROOKLYN ONEILL MD Name Value Range Interpretation Code Description Data Stephanie rce(s) Supporting Document(s) ID Date Data Source [id number] 11/18/2020 02:32:00 PM EDT [address] PROGRESS NOTEPATIENT NAME: YARELI HATCH CATSALVADOR PHYSICIAN: BROOKLYN ONEILL MDAUTHOR: Surendra SMITH,P.ADM. DATE: 10/31/20 MR#: [id number] NOTE DATE: 11/18/20 RM#: 310EVALUATION TIME: 1432 is 20-year-old female, currently single, past psych historyof bipolar disorder, poor impulse control and borderline personality disorderChief complaint concern about her ability to maintain safety and possiblesuicidal thoughtsEvents Since Last EntryYareli was seen today along with the potable water treatment operator, Gloria, and a PAstudent from [facility]. She is doing well today. She [...] be send to [place] and not to [facility]. Patient admitsto not having any [...] has been declined by every agency [facility] with opening tostay. I am in the process of working with the AOT coordinator to arrange forgetting the AOT done for her. We really do not have anywhere to send here.Given the fact she was on restraints over the weekend and is on [id number] because she put a pillow over her [...] rce(s) Supporting Document(s) ID Date Data Source [id number] 11/17/2020 11:21:00 PM EDT [address] [id number] NOTE FOLLOW UPPATIENT NAME: YARELI HATCH PHYSICIAN: BROOKLYN ONEILL MDAUTHOR: Dori SMITH,[facility]. DATE: 10/31/20 MR#: [id number] NOTE DATE: 11/17/20 RM#: 310EVALUATION TIME: 2323 [...] rce(s) Supporting Document(s) ID Date Data Source [id number] 11/15/2020 02:15:00 PM EDT [address] HEALTH PROGRESS NOTEPATIENT NAME: DENISSE HATCHZOIE YA PHYSICIAN: BROOKLYN ONEILL MDAUTHOR: Surendra SMITH,P.ADM. DATE: 10/31/20 MR#: [id number] NOTE DATE: 11/15/20 RM#: 310EVALUATION TIME: 1416 is 20-year-old female, currently single, past psych historyof bipolar disorder, poor impulse control and borderline personality disorderChief complaint concern about her ability to maintain safety and possiblesuicidal thoughtsEvents Since Last EntryYareli was seen today along with the potable water treatment operator, and a PA [facility]from [facility]. She is in a better mood [...] treatment plan. we are awaiting information from [facility] for placement effortsPortions of this section were scribed by Shell Ariza on 11/15/20 at 1415DATE SIGNED: 11/15/20 Electronically SignedTIME SIGNED: 1417 BROOKLYN ONEILL MD Name Value Range Interpretation Code Description Data Stephanie rce(s) Supporting Document(s) ID Date Data Source [id number] 11/14/2020 07:41:00 PM EDT [facility] [place] [address] [id number] HEALTH PROGRESS NOTEPATIENT NAME: [facility]: BROOKLYN ONEILL MDAUTHOR: Surendra SMITH,P.ADM. DATE: 10/31/20 MR#: [id number] NOTE DATE: 11/14/20 RM#: 310EVALUATION TIME: 1948 is 20-year-old female, currently single, past psych historyof bipolar disorder, poor impulse control and borderline personality disorderChief complaint concern about her ability to maintain safety and possiblesuicidal thoughtsEvents Since Last EntryYareli was seen today with potable water treatment operator Cata and a PA student. Sheseems to be in better mood today without any hostility or irritableness. Sheasked the same question, what is happening to her AOT. We advised her that theAOT is being pursued and Lorraine is checking with [facility] and she will get back tous. Ever since Zyprexa has been added her mood has improved. She wants to gothe community residence in [place]. The problem remains the uncertainty aboutwhen the [...] to pursue AOT as well as with [facility].Portions of this section were scribed by Shell Ariza on 11/14/20 at 1941DATE SIGNED: 11/14/20 Electronically SignedTIME SIGNED: 1948 BROOKLYN ONEILL MD Name Value Range Interpretation Code Description Data Stephanie rce(s) Supporting Document(s) ID Date Data Source [id number] 11/13/2020 04:22:00 PM EDT [place], [place] [address]MENTAL HEALTH PROGRESS NOTEPATIENT NAME: YARELI HATCH CATSALVADOR PHYSICIAN: BROOKLYN ONEILL MDAUTHOR: Surendra SMITH,P.ADM. DATE: 10/31/20 MR#: [id number] NOTE DATE: 11/13/20 RM#: 310EVALUATION TIME: 1625 is 20-year-old female, currently single, past psych historyof bipolar disorder, poor impulse control and borderline personality disorderChief complaint concern about her ability to maintain safety and possiblesuicidal thoughtsEvents Since Last EntryJelenaadrienne was seen today with the potable water treatment operator. She continues to notshow any insight. For [...] an opening in a community residence in [place]. Her Thorazinehas been changed to 300 mg [...] rce(s) Supporting Document(s) ID Date Data Source [id number] 11/12/2020 08:02:00 PM EDT [facility] [place] [address]MENTAL HEALTH PROGRESS NOTEPATIENT NAME: YARELI HATCH CATSALVADOR PHYSICIAN: BROOKLYN ONEILL MDAUTHOR: Surendra SMITH,P.ADM. DATE: 10/31/20 MR#: [id number] NOTE DATE: 11/12/20 RM#: 310EVALUATION TIME: 2007 [...] her intention to people whenever they address [place] and that she needs to tell them [...] She has been approved for communityresidence in [place]. Will also work on her coping skill building.Portions of this section were scribed by Shell Ariza on 11/12/20 at 2002DATE SIGNED: 11/12/20 Electronically SignedTIME SIGNED: 2008 BROOKLYN ONEILL MD Name Value Range Interpretation Code Description Data Stephanie rce(s) Supporting Document(s) ID Date Data Source [id number] 11/12/2020 04:37:00 PM EDT [address] [id number] NOTE FOLLOW UPPATIENT NAME: DAMARISYARELI PHYSICIAN: BROOKLYN ONEILL MDAUTHOR: Jacque Chowdhury. DATE: 10/31/20 MR#: [id number] NOTE DATE: 11/12/20 RM#: 310EVALUATION TIME: 1641 [...] Name Value Range Interpretation Code Description Data [facility] Supporting Document(s) ID Date Data Source [id number] 11/11/2020 07:43:00 AM EDT [facility] Raegarry [place] Exam Number: [id number] Reported By: Maria De Jesus KIM M.D. Signed By: Rakan KIM M.D. Name Value Range Interpretation Code Description Data [facility] rce(s) Supporting Document(s) ID Date Data Source [id number] 11/10/2020 11:20:00 AM EDT [facility] [address] HEALTH PROGRESS NOTEPATIENT NAME: YARELI HATCH PHYSICIAN: BROOKLYN ONEILL MDAUTHOR: Colleen SMITH,DhruvADM. DATE: 10/31/20 MR#: [id number] NOTE DATE: 11/10/20 RM#: 310EVALUATION TIME: 1122 [...] rce(s) Supporting Document(s) ID Date Data Source [id number] 11/09/2020 11:20:00 AM EDT [address] HEALTH PROGRESS NOTEPATIENT NAME: YARELI HATCH PHYSICIAN: BROOKLYN ONEILL MDAUTHOR: Colleen SMITH,DhruvADM. DATE: 10/31/20 MR#: [id number] NOTE DATE: 11/09/20 RM#: 310EVALUATION TIME: 1121 [...] rce(s) Supporting Document(s) ID Date Data Source [id number] 11/08/2020 01:30:00 PM EDT [address] PROGRESS NOTEPATIENT NAME: DAMARISYARELI YA PHYSICIAN: BROOKLYN ONEILL MDAUTHOR: Surendra SMITH,P.ADM. DATE: 10/31/20 MR#: [id number] NOTE DATE: 11/08/20 RM#: [id number] TIME: 1334 Since Last EntryYareli was seen today along with the potable water treatment operator, Gloria, and a PAstudent from [facility]. She apologized for not coming to [...] and not thinkingcompletely. Lorraine was discussing with [facility] about further treatment options forher as [...] rce(s) Supporting Document(s) ID Date Data Source [id number] 11/07/2020 03:12:00 PM EDT [address] PROGRESS NOTEPATIENT NAME: YARELI HATCH CATTENGIOVANNY PHYSICIAN: BROOKLYN ONEILL MDAUTHOR: Surendra SMITH,P.ADM. DATE: 10/31/20 MR#: [id number] NOTE DATE: 11/07/20 RM#: 310EVALUATION TIME: 1512 [...] rce(s) Supporting Document(s) ID Date Data Source [id number] 11/06/2020 01:30:00 PM EDT [address] HEALTH PROGRESS NOTEPATIENT NAME: YARELI HATCH CATTENDING PHYSICIAN: BROOKLYN ONEILL MDAUTHOR: Surendra SMITH,P.ADM. DATE: 10/31/20 MR#: [id number] NOTE DATE: 11/06/20 RM#: 310EVALUATION TIME: 1330 Since Last EntryYareli was seen today along with the potable water treatment operator, Gloria, and a PAstudent from [facility]. She continues to be depressed. She is inbetter mood today. She was cooperative durin g the session. She answered all myquestions. Patient states she is forced to talk. She states she is barely ableto manage herself. When I after school counselor Yareli talk about her life and [...] rce(s) Supporting Document(s) ID Date Data Source [id number] 11/05/2020 03:44:00 PM EDT [place] [id number] HEALTH PROGRESS NOTEPATIENT NAME: YARELI HATCH PHYSICIAN: BROOKLYN ONEILL MDAUTHOR: Surendra SMITH,P.ADM. DATE: 10/31/20 MR#: [id number] NOTE DATE: 11/05/20 RM#: [id number] TIME: 1546 Since Last EntryYareli was seen today along with the potable water treatment operator, Gloria, and a PAstudent from [facility]. She continues to be depressed. She [...] rce(s) Supporting Document(s) ID Date Data Source [id number] 11/04/2020 09:38:00 AM EDT Joe [address] [id number] NAME: YARELI HATCH#: [id number] PHYSICIAN: BROOKLYN ONEILL MD ADM. DATE: 10/31/20PROGRESS NOTE DATE: 11/04/20 RM.#: [id number] #: [id number] NOTEIDENTIFICATION: A 20-year-old female with schizoaffective disorder.VITAL SIGNS: Temperature of 97, pulse of 101, respirations 19, blood ofgjvcsx249/79.SUBJECTIVE: The patient came to the interview room. [...] Dictated: 11/04/2020 09:20:11Date Transcribed: 11/04/2020 08:38:16JV/PUSDelfino #: [id number]: 11/04/2020 Electronically SignedTRANS:11/04/2038 FILI CANELA MDTRANS BY:IATDATE SIGNED:11/04/20REPORT COPY TO: Name Value Range Interpretation Code Description Data Stephanie rce(s) Supporting Document(s) ID Date Data Source [id number] 11/03/2020 11:54:00 AM EDT [address] [id number] NAME: DAMARISYARELI Patel#: [id number] PHYSICIAN: BROOKLYN ONEILL MD ADM. DATE: 10/31/20PROGRESS NOTE DATE: 11/03/20 .#: 310ACCOUNT #: [id number] NOTEIDENTIFICATION: A 20-year-old female with schizoaffective disorder.VITAL [...] Dictated: 11/03/2020 09:56:45Date Transcribed: 11/03/2020 10:54:25JV/PUSJob #: [id number]: 11/03/20 0956 Electronically SignedTRANS:11/03/20 1154 FILI CANELA MDTRANS BY:IATDATE SIGNED:11/04/20REPORT COPY TO: Name Value Range Interpretation Code Description Data Stephanie rce(s) Supporting Document(s) ID Date Data Source [id number] 11/01/2020 10:43:00 AM EDT [address] [id number] NAME: YARELI HATCH#: [id number] PHYSICIAN: BROOKLYN ONEILL MD ADM. DATE: 10/31/20ACCOUNT #: [id number] .#: [id number] ASSESSMENTIDENTIFICATION: A 20-year-old female with long history of schizoaffectivedisorder, cluster B personality disorder.CHIEF COMPLAINT: "I am suicidal."REASON FOR ADMISSION: Suicidal ideation.HISTORY OF PRESENT ILLNESS: According to the records and our interview, thepatient was discharged from our service 2 days ago, she was discharged jcetrl20:00 in the morning. She was back in [...] She is living with a friendhere in [place]. The patient stated that she is a [...] 11/01/2020 10:19:56Date T ranscribed: 11/01/2020 09:43:52LEIGH/Erin #: [id number]: 11/01/20 1019 Electronically SignedTRANS:11/01/20 1043 FILI CANELA MDTRANS BY:KIERRA SIGNED:11/02/20REPORT COPY TO: Name Value Range Interpretation Code Description Data Stephanie rce(s) Supporting Document(s) ID Date Data Source [id number] 10/31/2020 07:04:00 PM EDT [address] [id number] AND PHYSICALPATIENT NAME: YARELI HATCH MR#: [id number] PHYSICIAN: BOGDAN MACIAS MDAUTHOR: Theresa Chowdhury DATE: [...] 17; Temp 98.3; Pulse Ox 96% ; np3Etenlyuy ExaminationGeneral Appearance no acute distress, afebrile, alertHead [...] rce(s) Supporting Document(s) ID Date Data Source [id number] 10/29/2020 10:26:00 PM EDT [facility] Name Value Range Interpretation Code Description Data Stephanie rce(s) Supporting Document(s) COVID-19, CORDELL NEGATIVE NEGATIVE N [facility] Methodology: Isothermal Nucleic Acid Amp lification [...] Emergency Use Authorization. ID Date Data Source [id number] 10/29/2020 09:38:25 PM EDT [facility] Name Value Range Interpretation Code Description Data [facility] rce(s) Supporting Document(s) Progress Note [facility] [id number] [facility] [file] [id number]= ID Date Data Source [id number] 10/29/2020 06:37:00 PM EDT [facility] Name Value Range Interpretation Code Description Data Stephanie rce(s) Supporting Document(s) SALICYLATE < 1.7 mg/dL 0.0-20.0 [facility] ID Date Data Source [id number] 10/29/2020 06:37:00 PM EDT [facility] Name Value Range Interpretation Code Description Data Stephanie rce(s) Supporting Document(s) ACETAMINOPHEN > 2.0 ug/mL 0-30 [facility] ID Date Data Source [id number] 10/29/2020 06:37:00 PM EDT [facility] Name Value Range Interpretation Code Description Data Stephanie rce(s) Supporting Document(s) HCG QUAL SERUM Negative Negative [facility] l ID Date Data Source [id number] 10/29/2020 06:37:00 PM EDT [facility] Name Value Range Interpretation Code Description Data Stephanie rce(s) Supporting Document(s) ETOH 0.000 g/dL NONE DETECTED [facility] l NONE DETECTED ID Date Data Source [id number] 10/29/2020 06:37:00 PM EDT [facility] Name Value Range Interpretation Code Description Data Stephanie rce(s) Supporting Document(s) GLU 109 mg/dL 70-110 [facility] Patients taking Sulfasalazine may have f alsely depressedGlucose levels. Patients taking Sulfapyridine may havefalsely elevated Glucose levels. Patients should be drawnfor Glucose before the initial administration of eitherdrug. BUN 17 mg/dL 7-23 [facility] CRE 0.658 mg/dL 0.500-1.300 [facility] GFR > 60 mL/min [facility] CHLORIDE 111 mmol/L 99-110 [facility] NA 142 mmol/L 136-147 [facility] POTASSIUM 4.1 mmol/L 3.5-5.1 [facility] TCO2 26 mmol/L 20-33 [facility] ANION GAP 9.1 10.0-20.0 [facility] CA 8.9 mg/dL 8.3-10.7 [facility] ALKALINE PHOS 121 U/L 45-117 [facility] TP 7.5 g/dL 6.0-7.8 [facility] ALB 3.8 g/dL 3.5-5.0 [facility] ESRD Dialysis patient Albumin reference range: 2.9-4.4 g/dL GL 3.7 g/dL 2.3-3.5 [facility] A/G 1.0 1.0-2.5 [facility] T. BILIRUBIN 0.2 mg/dL 0.1-1.1 [facility] The [facility] [place] Total Bilirubin is n ot recommended forpatients undergoing treatment with eltrombopag (Promacta)due to the potential for falsely elevated results. ALTI 49 U/L 6-54 [facility] Patients taking Sulfasalazine and/or Sul fapyridine may havefalsely depressed ALT levels. Patients should be drawn forALT before the initial administration of either drug. AST 26 U/L 6-38 [facility] Patients taking Sulfasalazine and/or Sul fapyridine may havefalsely depressed AST levels. Patients should be drawn forAST before the initial administration of either drug. ID Date Data Source [id number] 10/29/2020 05:54:00 PM EDT [facility] Name Value Range Interpretation Code Description Data Stephanie rce(s) Supporting Document(s) WBC 7.63 x10E3/uL 4.0-10.5 [facility] RBC 4.24 x10E6/uL 4.20-5.40 [facility] Hemoglobin 12.8 g/dL 12.0-16.0 [facility] Hematocrit 37.6 % 37.0-47.0 [facility] MCV 88.7 fL 81.0-99.0 [facility] MCH 30.2 pg 27.0-31.0 [facility] MCHC 34.0 g/dL 32.7-35.6 [facility] RDW 12.3 % 11.5-14.0 [facility] Platelet count 211 x10E3/uL 150-450 [facility] ital MPV 9.6 fl 6.9-9.5 [facility] Neutrophils 57.8 % 34-64 [facility] Lymphocytes 32.9 % 25-45 [facility] Monocytes 7.2 % 1.7-10.6 [facility] Eosinophils 1.6 % 0.4-7.0 [facility] Basophils 0.1 % 0.1-2.0 [facility] Imm. Gran. 0.4 % 0.1-2.0 [facility] Abs. Neutro. 4.41 x10E3/uL 1.2-7.6 [facility] Abs. Lymph. 2.51 x10E3/uL 1.0-3.5 [facility] Abs. Will. 0.55 x10E3/uL 0.1-1.0 [facility] Abs. Eosin. 0.12 x10E3/uL 0.1-0.7 [facility] Abs. Baso. 0.01 x10E3/uL 0.0-0.1 [facility] Abs[facility] Imm. Gran. 0.03 x10E3/uL 0.0-0.1 [facility] spital ANRBC% 0 % 0 [facility] ID Date Data Source [id number] 10/29/2020 06:28:00 PM EDT [facility] Name Value Range Interpretation Code Description Data Stephanie rce(s) Supporting Document(s) PCP VISTA NEG NEGATIVE [facility] MINIMUM LEVEL OF DETECTION IS 25 ng/ml BENZODIAZEPINES NEG NEGATIVE [facility] al MINIMUM LEVEL OF DETECTION IS 200 ng/ml COCAINE VISTA NEG NEGATIVE [facility] MINIMUM LEVEL OF DETECTION IS 300 ng/ml AMPHETAMINES NEG NEGATIVE [facility] al MINIMUM LEVEL OF DETECTION IS 1000 ng/ml BARBITURATES NEG NEGATIVE [facility] al CUTOFF CONCENTRATION IS 200 ng/ml CANNABINOIDS NEG NEGATIVE [facility] CUTOFF CONCENTRATION IS 50 ng/ml METHADONE VISTA NEG NEGATIVE [facility] al MINIMUM LEVEL OF DETECTION IS 300 ng/ml OPIATE VISTA NEG NEGATIVE [facility] MINIMUM DETECTION LEVEL IS 300 ng/ml ID Date Data Source [id number] 10/29/2020 05:57:00 PM EDT [facility] [place] Name Value Range Interpretation Code Description Data Stephanie rce(s) Supporting Document(s) URINE COLOR Yellow [facility] UAPR Turbid [facility] UGLU Negative NEGATIVE [facility] URINE BILIRUBIN [facility] UKET Negative NEGATIVE [facility] USG 1.024 1.010-1.025 [facility] UBLO Negative NEGATIVE [facility] UpH 7.0 5.0-8.0 [facility] UPRO Negative Negative [facility] UUB 1.0 mg/dL 0.2-1.0 [facility] UNIT Negative Negative [facility] ULEU Negative Negative [facility] ID Date Data Source [id number] 10/31/2020 10:31:00 AM EDT [facility] Physician DocumentationClaxlexy-Naveen Hinkle edical CenterName: Yareli PatelvallAge: 20 yrsSex: FemaleDOB: 2000MRN: [id number] Date: 10/29/2020Time: 17:31Account#: [id number] MD:ED Physician Richie العليposition Summary:10/31/20 08:52Hospitalization OrderedHospitalization [...] presents to ER via [facility] fl8poig complaints of Psych Problem.19:29 Patient comes the ER today for mental health evaluation. Patient was bz1istu in the ER for mental health on [...] Smoking status: Patient states was never smoker ofRESAAS. ETOH status Denies use of ETOH.- Advance [...] exhibiting self-injurious behavior in the ER not wx5vsusclgjar to verbal de-escalation requiring chemical sedation. Averbal order was given for B-52 while I was busy with another issue.When I went to put the order in the computer, Haldol allergy poppedup however the medication was already given by the nurse. Patientclosely monitored for any evidence of allergic reaction..06:46 Data reviewed: vital signs, nurses notes, lab test result(s). ED da3ysjqrd: Care is endorsed to Dr. العلي at [...] continued to note aggressive behavior and started bw8oahwao verbal threats to staff including threatening to [...] tp:26 Order name: COVID-19 PROF; Complete Time: 04:77ZKIS49:35 Order name: Diet - Mental Health Tray (call dietary); Complete Time: tlm21:0810/2016:35 Order name: Belongings List; Complete Time: 09:37 :35 Order name: Document Weight and Height for BMI; Complete Time: 09:37 tl:35 Order name: Mental Health Level 3; Complete Time: 09:37 :35 Order name: VS q shift; Complete Time: 21:08 :29 Order name: Medically Cleared for Eval by-Psychosocial, Prep Manager th4(.JIMY); Complete Time: :02 Order name: EKG.; Complete Time: 22:08 :24 Order name: Mental Health Level 4; Complete Time: 09:2 9 :54 Order name: Restrain Patient; Complete Time: 21:54 ju4Pejexxeiz Medications:10/2018:54 Drug: Seroquel - QUEtiapine 25 mg [quetiapine 25 mg tablet (1 tabs)] dr1Rivbw: PO;22:08 Follow up: Response: No adverse reaction tp4:38 Drug: B52 IM - (LORazepam 2 mg, diphenhydrAMINE 50 mg, Haloperidol bo9Idsjflf 5 mg) Route: IM; Site: right vastus [...] diphenhydrAMINE 50 mg [diphenhydramine 50 mg/mL injection fk3zazqfwds (1 mL)] {Note: given for severe anxiety.} [...] 20 mg [ziprasidone 20 mg/mL (final concentration) hk5gueawsnvwxobf solution (1 mL)] Route: IM; Site: right [...] Rhythm is regular, Normal Sinus Rhythm. QRS qv1Retz is Normal. AR interval is normal. QRS interval is normal. QTinterval is normal. No Q waves. T waves are Normal. No ST changesnoted. Clinical impression: Normal ECG. Interpreted by me.Signatures:Dispatcher [employer] Елена Boogie RN RN klpMMagaly funk RN RN tlmElliott, Suzanne, MD MD seHowland, Todd, MD MD tn6ZrvncFortunato humphrey RN RN nl6UahygzBreonna yu RN RN wl1RobjrqhAnoop valenzuela MD MD dk2DStacy zhou RN vu2Ncwenvakuck: (The following items were deleted from the chart)10/2110:57 11:56 COVID-19 PROFILE+LAB ordered. HNXPGJAN24/2200:32 00:10 LORazepam 4 mg IM once ordered. dk2 dk2 Name Value Range Interpretation Code Description Data Stephanie rce(s) Supporting Document(s) ID Date Data Source [id number] 10/31/2020 10:31:00 AM EDT [facility] terName: Yareli Mejiage: 20 yrsSex: FemaleDOB: 2000MRN: [id number] Date: 10/29/2020Time: 17:31Account#: [id number] Willow SMITH:Diagnosis: Major depressive disorder, recurrent, unspecifiedPresentation:10/2016:31 Presenting complaint: Patient states: "suicidal thought with plan and tlmanxiety:". Coronavirus Screening: Have you been diagnosed withCOVID-19 in the past 30 days? no [facility]? no Flu-like symptoms reported in the last 14 days: no.Have you had close contact with confirmed or suspected COVID-19 case?no Do you live in a setting where a large of amount of people live,such as fdc, family care, half-way, etc? no. Have you traveledto a location with widespread or ongoing COVID-19 community spread [facility]? no Have you traveled internationally or hadcontact with someone that has traveled and has been ill in the past 3weeks? no Have you received the COVID vaccine? No. CommunicationSpeaks Lebanese? Yes, is preferred language. Communicable DiseaseScreen: Negative [...] Smoking status: Patient states was never smoker ofRESAAS. ETOH status Denies use of ETOH.- Advance [...] that the patient found a paper clip wx6cuwgnhohrw on a "window"- she would not [facility] hand. She then got [...] reported that patient had been "digging and cu9acnibwvnyz herself" and despite constant redirection, MHW had tomanually hold wrists down to prevent her from doing this. She doeshave bilateral superficial scratches to her wrists w/o bleeding. K54ikydbavu ordered and given.05:26 Reassessment: flex o writer operator was called back to room by jimy- pt was still ys2zwgxzeinzx to dig at herself. She was verbally [...] room due to patient harming self by jr4dybdvrhbhu self with her fingernails several attempts made to getpatient to stop, patient asked why she was doing this and she replied"because I'm depressed and anxious" patient offered medication tohelp with her severe anxiety and she accepted MD made aware ofsituation and order recieved..20:39 Reassessment: Patient continues to try to hurt self and report severe kj1nicjmvp MD called to bedside to assess the situation and additionalmedications ordered..21:55 Reassessment: Despite all other interventions patient continues to jw5try to harm self MD notified and order received to place patient intorestraints at this time for safety.22:48 Reassessment: Patient appears in no apparent distress at this time. og2Egzbyip released from restraints at 2245, patient reports [...] Report Not Completed. Intervention: Observation Level 3. [address] health consult is initiated at 20:30. Referral Information:Evaluation referral is generated by the patient himself / herself.The patient was referred for evaluation because expresses suici dalideations with the plan to hang her self or to overdose.20:57 Subjective: The patients chief complaint is Pt presents to the ED as sm8a walk in due to suicidal ideations. Pt was discharged from [facility] three hours before arriving to the [...] inpatient mental health.She has been admitted at [facility], [facility], [facility], and [facility].Pt has a history of Bipolar, Major Depressive, Anxiety. She statesthat she does not take her medications constantly which continuedwhile she was inpatient. Pt reports that she [facility]. She will be [...] reports history of anxiety, Bipolar Disorder, Depression, vr7rkyfqcy attempt: multiple by overdose Other: Borderline PersonalityDisorder. Mental Health Admissions: multiple admissions. Last was [facility] and was discharged today Current Outpatient [...] patient status is not currently needed or fm1iidawbmwwzq. Consultation: Psych MD informed of patient's status at21:00, ED MD notified of patients status at 21:17. Disposition:Medically cleared for disposition by Dr Argueta. Psychiatric Consultis performed by phone with Dr Macias The patient is to be transferredto bed available facility. Legal Status: Patient's legal status [facility]: 937. Commitment papers arecompleted. DSM-V DX [place] I diagnosis: Depression, Unspecified.Insurance Pre-Certification: Not Required. [facility] Admission Criteria:The patient is experiencing suicidal [...] referralhospital acceptance. The patient is not a service shop foreman or militarydependent. Rankin Suicide Severity Rating Scale: Suicidal IdeationRating 5; Intensity of Ideations Rating 25; Suicidal Behavior Rating1.10/2100:37 Narrative Pt was using her sheet and pillow case to wrap around her tn2wkqh. Blankets and pillow case were removed. Pt [...] left arm. She has been redirected multiple cb5xurxc by PSA and sitter. Security is present. Pt is now currentlywaiting TV with both hands visible.03:58 Narrative Pt is laying down, watching TV. Sitter is present. Safety sm8is maintained.04:43 Narrative Pt started digging at her arm again. PSA and sitter had oo8rpqzsgvtk to redirect the pt with no success. Nurse and MD was donn. B52 was given. Pt has a kesiha on her left wrist and a smallermark on her right wrist. Both have been looked at by nurse.19:21 Narrative PSA role handed off to this flex o writer operator at 1900. sm804/2201:04 Narrative Since shift change at 1930 pt has been digging herself, rc3pqdzcokvfcs to leave, yelling and swearing, she has [...] Narrative PSA role handed off to this flex o writer operator at 7:30 AM. kf09:33 Disposition: The patient is admitted to [facility] Patient report is kfgiven to Dylan Ribeiro RN. Legal Status: Patient's legal status willbe Emergency: 9.39. Commitment papers are completed. PT has beenprovided with a copy of her legal status and rights.Psych:10/2017:02 Subjective: Patient's mood is euphoric, Delusions are denied, tlmHallucinations are denied Having thoughts of suicide. Plan forsuicide is to overdose on drugs, [facility] she [facility]'t [...] Observation Level Level 4 Sitter needed. Provider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 02:24:[address] [address]JJSGPCY AND PHYSICALPATIENT NAME: YARELI HATCH MR#: [id number] PHYSICIAN: FILI CANELA MDAUTHOR: Emerita Hall DATE: [...] Denies: auditory hallucination, confusion.ExamVital SignsVital Signs-24 HRS06/15 12/683163 0724Temp 98.2 97.7Pulse 68 67Resp 20 17B/P 104/75 114/76B/P MeanPulse Ox 95 100O2 DeliveryO2 Flow EffaLlL2Shyxohdt ExaminationGeneral Appearance no acute distress, afebrile, alertHead atraumatic, normocephalicENT normal right ear, normal left ear, normal noseNeck no bruit, no JVD, no lym phadenopathyCardiovascular regular rate, no murmurRespiratory clear to auscultation, no distressAbdomen soft, no distentionExtremities no clubbing, no cyanosisAssessment/PlanDiagnosis/Problem1. Major depressive disorderStatus AcuteA&Pcontinu with psychiatry.CQM VTE HISTORYVTE HISTORYPrior VTE? NoADDENDUM: [facility] on 06[facility]20 at 167714 yo female admitted for SI. She had recently been living in a communityhoursing as arranged by this facility. She signed herself out and broughtherself in to this facility. Denies PMH, PSH. Unknown age of parents, she grewup in the foster care system.Affect is restricted and speech is pressured. exam/history is limited due topatient's mental health status.DATE SIGNED: 06/16/20 Electronically SignedTIME SIGNED: 1726 EMERITA VEH[employer] SALES PROFESSIONAL-Janette CANCHOLA Name Value Range Interpretation Code Description Data Stepahnie rce(s) Supporting Document(s) ID Date Data Source [id number] 06/15/2020 11:12:00 AM [facility] [address] [id number] NAME: JELENA HATCHADRIENNE Jensen#: [id number] PHYSICIAN: FILI CANELA MD ADM. DATE: 06/15/20ACCOUNT #: [id number] .#: [id number] ASSESSMENTIDENTIFICATION: A 19-year-old female with mood disorder, schizoaffectivedisorder, and cluster B personality disorder.CHIEF COMPLAINT: "I was upset."REASON FOR ADMISSION: Vague suicidal ideation.HISTORY OF PRESENT ILLNESS: The patient stated that she signed herself out [facility]. She became homeless and started thinking about dying. Thepatient stated that she called for help, that she needed to be in theEmergency for suicidal ideations; however, in Emergency the patient statedthat she is not suicidal. She became homeless after she signed herself out [facility].The patient stated that she wants [...] back to the Crisis Center or to [facility].Date Dictated: 06/15/2020 10:12:06Date Transcribed: 06/15/2020 10:12:35JV/GBJob #: [id number]: 06/15/20 1012 Electronically SignedTRANS:06/15/20 1112 FILI CANELA MDTRANS BY:KIERRA SIGNED:06/16/20REPORT COPY TO: Name Value Range Interpretation Code Description Data Stephanie rce(s) Supporting Document(s) ID Date Data Source [id number] 06/15/2020 02:49:00 AM EST [facility] Name Value Range Interpretation Code Description Data Stephanie rce(s) Supporting Document(s) SALICYLATE < 1.7 mg/dL 0.0-20.0 N [facility] ID Date Data Source [id number] 06/15/2020 02:49:00 AM EST [facility] Name Value Range Interpretation Code Description Data Stephanie rce(s) Supporting Document(s) ACETAMINOPHEN < 2.0 ug/mL 0-30 [facility] Date Data Source [id number] 06/15/2020 02:49:00 AM EST [facility] Name Value Range Interpretation Code Description Data Stephanie rce(s) Supporting Document(s) ETOH 0.006 g/dL NONE DETECTED [facility] ID Date Data Source [id number] 06/15/2020 02:49:00 AM EST [facility] Name Value Range Interpretation Code Description Data Stephanie rce(s) Supporting Document(s) GLU 82 mg/dL 70-110 [facility] Patients taking Sulfasalazine may have f alsely depressedGlucose levels. Patients taking Sulfapyridine may havefalsely elevated Glucose levels. Patients should be drawnfor Glucose before the initial administration of eitherdrug. BUN 18 mg/dL 7-23 [facility] CRE 0.674 mg/dL 0.500-1.300 [facility] CHLORIDE 111 mmol/L 99-110 [facility] NA 141 mmol/L 136-147 [facility] POTASSIUM 4.1 mmol/L 3.5-5.1 [facility] TCO2 24 mmol/L 20-33 [facility] ANION GAP 10.1 10.0-20.0 [facility] CA 9.0 mg/dL 8.3-10.7 [facility] ALKALINE PHOS 124 U/L 82-169 [facility] TP 7.6 g/dL 6.0-7.8 [facility] ALB 4.0 g/dL 3.5-5.0 [facility] ESRD Dialysis patient Albumin reference range: 2.9-4.4 g/dL GL 3.6 g/dL 2.3-3.5 [facility] A/G 1.1 1.0-2.5 [facility] T. BILIRUBIN 0.3 mg/dL 0.1-1.1 [facility] The [facility] [place] Total Bilirubin is n ot recommended forpatients undergoing treatment with eltrombopag (Promacta)due to the potential for falsely elevated results. ALTI 55 U/L 6-54 [facility] Patients taking Sulfasalazine and/or Sul fapyridine may havefalsely depressed ALT levels. Patients should be drawn forALT before the initial administration of either drug. AST 27 U/L 6-38 [facility] Patients taking Sulfasalazine and/or Sul fapyridine may havefalsely depressed AST levels. Patients should be drawn forAST before the initial administration of either drug. ID Date Data Source [id number] 06/15/2020 02:32:00 AM EST [facility] Name Value Range Interpretation Code Description Data Stephanie rce(s) Supporting Document(s) WBC 7.41 x10E3/uL 4.0-10.5 [facility] RBC 4.25 x10E6/uL 4.20-5.40 [facility] Hemoglobin 12.2 g/dL 12.0-16.0 [facility] Hematocrit 38.0 % 37.0-47.0 [facility] MCV 89.4 fL 81.0-99.0 [facility] MCH 28.7 pg 27.0-31.0 [facility] MCHC 32.1 g/dL 32.7-35.6 [facility] RDW 12.8 % 11.5-14.0 [facility] Platelet count 249 x10E3/uL 150-450 [facility] ital MPV 9.9 fl 6.9-9.5 [facility] Neutrophils 48.3 % 34-64 [facility] Lymphocytes 43.2 % 25-45 [facility] Monocytes 6.3 % 1.7-10.6 [facility] Eosinophils 1.5 % 0.4-7.0 [facility] Basophils 0.3 % 0.1-2.0 [facility] Imm. Gran. 0.4 % 0.1-2.0 [facility] Abs. Neutro. 3.58 x10E3/uL 1.2-7.6 [facility] Abs. Lymph. 3.20 x10E3/uL 1.0-3.5 [facility] Abs. Will. 0.47 x10E3/uL 0.1-1.0 [facility] Abs. Eosin. 0.11 x10E3/uL 0.1-0.7 [facility] Abs. Baso. 0.02 x10E3/uL 0.0-0.1 [facility] Abs. Imm. Gran. 0.03 x10E3/uL 0.0-0.1 N [facility] ANRBC% 0 % 0 [facility] ID Date Data Source [id number] 06/15/2020 02:56:00 AM EST [facility] Name Value Range Interpretation Code Description Data Stephanie rce(s) Supporting Document(s) PCP VISTA NEG NEGATIVE [facility] MINIMUM LEVEL OF DETECTION IS 25 ng/ml BENZODIAZEPINES POS NEGATIVE [facility] POSITIVE RESULTS UNCOMFIRMEDMINIMUM LEVE L OF DETECTION IS 200 ng/ml COCAINE VISTA NEG NEGATIVE [facility] MINIMUM LEVEL OF DETECTION IS 300 ng/ml AMPHETAMINES NEG NEGATIVE [facility] MINIMUM LEVEL OF DETECTION IS 1000 ng/ml BARBITURATES NEG NEGATIVE [facility] CUTOFF CONCENTRATION IS 200 ng/ml CANNABINOIDS NEG NEGATIVE [facility] CUTOFF CONCENTRATION IS 50 ng/ml METHADONE VISTA NEG NEGATIVE [facility] MINIMUM LEVEL OF DETECTION IS 300 ng/ml OPIATE VISTA NEG NEGATIVE [facility] MINIMUM DETECTION LEVEL IS 300 ng/ml ID Date Data Source [id number] 06/15/2020 02:40:00 AM EST [facility] Name Value Range Interpretation Code Description Data Stephanie rce(s) Supporting Document(s) HCG QUAL URINE Negative Negative [facility] ID Date Data Source [id number] 06/15/2020 02:40:00 AM EST [facility] Name Value Range Interpretation Code Description Data Stephanie rce(s) Supporting Document(s) URINE COLOR Yellow [facility] UAPR Cloudy [facility] UGLU Negative NEGATIVE [facility] URINE BILIRUBIN Negative [facility]GATIVE [facility] UKET Negative NEGATIVE [facility] USG 1.022 1.010-1.025 [facility] UBLO Negative NEGATIVE [facility] UpH 7.0 5.0-8.0 [facility] UPRO Negative Negative [facility] UUB 1.0 mg/dL 0.2-1.0 [facility] UNIT Negative Negative [facility] ULEU Trace Negative [facility] ID Date Data Source [id number] 06/15/2020 02:40:00 AM EST [facility] Name Value Range Interpretation Code Description Data Stephanie rce(s) Supporting Document(s) URINE RBC 0-2 RBCs/HPF NONE SEEN [facility] URINE WBC 0-2 WBCs/HPF NONE SEEN [facility] URINE BACTERIA Few [facility]INE EPI. Few NONE SEEN [facility] URINE CRYSTAL MODERATE AMORPHOUS NONE SEEN [facility] ID Date Data Source [id number] 06/15/2020 05:47:00 AM EST [facility] Physician DocumentationClaxton-Naveen M edical CenterName: Yareli DuvallAge: 19 yrsSex: FemaleDOB: 2000MRN: [id number] Date: 06/15/2020Time: 01:36Account#: [id number] MD: NONE, - Per PatientED Physician Esteban Argueta Summary:06/15/20 04:14Hospitalization OrderedHospitalization Status: Inpatient Admission gv1Agnwtdmp: Fili Canela vf1Hppyqrjt: Mental Health Unit ts1Grooygwus: Stable vk2Dcnmkvd: an ongoing problem cv4Vdrlvoej: are unchanged vm5Qghg Assignment: xv9Zsqekaqyb- Bipolar disorder, unspecified mb9Ajmzfrspsi Information- Admission Type: Inpatient Status. mf8Blhop:- Medication Reconciliation th4- SBAR th4- Medication Reconciliation Form - 2nd Copy th4HPI:06/502:07 This 19 yrs old White Female presents to ER via Police with nh7fgkqfchubj of Psych Problem.02:07 Patient is brought in by police on a pickup order for mental health sg2xhyslfwzqo. Patient reports she is suicidal with a [...] She denies any other problems or anyother complaints..MEDIA TRAFFIC MANAGER:01:48 LMP 06/08/2020 so1Tzhlzhfwld:- Allergies: Haldol; RISPERIDONE;- Home Meds:1. hydroxyzine pamoate [...] Smoking status: Patient states was never smoker ofRESAAS. Patient/guardian denies using street drugs, IV drugs, [...] signs, nurses notes, lab test result(s). ED vs1lowpvz: Patient remained stable in the ER. Patient [...] Order name: Medically Cleared for Eval by-Psychosocial, Prep Manager th4(.PSA); Complete Time: 03:11Dispensed Medications:No medications were administeredSignatures:Dispatcher [employer] Nils Hicks MD MD eg0MwvtsFortunato humphrey, RN RN jw5 Name Value Range Interpretation Code Description Data Stephanie rce(s) Supporting Document(s) ID Date Data Source [id number] 06/15/2020 05:47:00 AM EST [facility] Nurse's NotesClaxton-Tonopah Medical Tootie terName: Yareli DuvallAge: 19 yrsSex: FemaleDOB: 2000MRN: [id number] Date: 06/15/2020Time: 01:36Account#: [id number] MD: NONE, - Per PatientDiagnosis: Bipolar disorder, unspecifiedPresentation:06/501:37 Presenting complaint: Patient brought in by [facility] officer Anatoly on a za9rmqj up order for mental health evaluation. Patient reports feelingsuicidal with a plan to strangle self or overdose on medicationdepressed and being homeless. Coronavirus Screening: Have youtraveled internationally or had contact with someone that hastraveled and has been ill in the past 3 weeks? no Have you traveledto a location with widespread or ongoing COVID-19 community spread [facility]? no Flu-like symptoms reported in the [...] Arrival: Police jw501:40 Acuity Assignment: Triage 2 zn7Ljxexh Assessment:01:47 General: Appears in no apparent distress, Behavior is cooperative. zc2Hixeqi Screening: (1)Signs/symptoms infection Sepsis is notsuspected. Pain: [...] aware ofpositive screen, suicide precautions implemented. ESS-6 ordered.MEDIA TRAFFIC MANAGER:01:48 LMP 06/08/2020 gi6Itjqwexlhb:- Allergies: Haldol; RISPERIDONE;- Home Meds:1. hydroxyzine pamoate [...] threats or abuse. Denies injuries from another. pu3Vpjwazlfsgi screening: No deficits noted. Offer of HIV testing:patient was previously offered screening. Fall Risk None identified.Assessment:05:43 Reassessment: see triage assessment. af7Ctpchfitminh:02:54 Intervention: Observation Level 3. Mental health consult is initiated grat 02:54.03:13 Referral Information: Evaluation referral is generated by a police gragency: [facility]. The patient was referred for evaluation because pt hadbeen at the [facility] ([facility]) sinceyesterday afternoon. She reports telling [...] and off'. Pt grreports going to the [facility] multiple times recently. Ptwas there today, and [...] family since coming out as transgendered also ia5514. Pt has an extensive psychiatric hx with multipleh ospitalizations throughout childhood, adolescence, and adulthood. Ptwas recently inpatient on [facility] from February to May 2020. Ptwas discharged on 05/15/20 to supportive housing in [place]. Pt reportsgoing to the crisis center almost [...] a young age. Ptwas recently inpatient at [facility] from February 2020 to May 2020.Current Outpatient Mental Health Services: Psychiatrist / Agency:[facility] in [place]. Therapist / Agency: [facility]/ Мария. Living Environment: Family / Home Support: Poor. Ptreports no contact with adoptive family. Has minimal contact withbiological parents; states "they don't accept me". The patientcurrently lives "homeless". Had been in supportive housing/ communityresidence in [place].03:24 Patient presents to Emergency Department with the [...] Dr Canela. The patient is admitted to [facility] Patientreport is given to Malu Bowman RN. Legal Status: Patient's legalstatus will be Emergency: 9.39. Commitment papers are completed. Pthas been provided with a copy of legal status and rights.04:09 DSM-V DX [place] I diagnosis: Bipolar D/O, Unspecified. gr04:09 Insurance Pre-Certification: Not Required. [facility] Admission Criteria: grThe patient is experiencing [...] psychoactivemedications or significant dosage adjustments. [facility] Transition of care to Pt will be transferred to MHU by [facility] andsecurity. The patient is not a service shop foreman or dependent.Rankin Suicide Severity Rating Scale: Suicidal Ideation Rating 5;Intensity of Ideations Rating 25; Suicidal Behavior Rating 1.Psych:01:51 Subjective: Patient's mood is sad, hopeless, Delusions are denied, fh7Mpiuzwbjtuhkco are denied Having thoughts of suicide. Plan forsuicide is to strangle self or overdose on medications. Objective:Patient is cooperative, Speech is normal, Affect is appropriate,Patient has mutilated themselves by superficial cuts to left arm.02:04 Interventions: Removed personal items and placed in bag. Patient ru6rcarvw in hospital gown. Searched person for dangerous [...] armband on for positive identification. Placed in jq5esgk. Bed in low position. Sitter at bedside.Administered Medications:No medications were administeredOutcome:04:14 Decision to Hospitalize by Provider. th405:25 Disposition: Admitted to Psych cm405:25 Condition: stable.05:25 Instructed on need for admit.05:25 Discharge Assessment: Patient verbalized understanding of dispositioninstructions. Patient has no functional deficits.05:47 Patient left the ED. ap3Astimrldqn:Rose Paulino, PSA PSA Nils Berrios MD MD kd1JaiurFortunato humphrey, JOSE LUIS RN ww2Wgwihphqv, Wendy, RN RN cm4 Name Value Range Interpretation Code Description Data Stephanie rce(s) Supporting Document(s) ID Date Data Source [id number] 05/16/2020 01:20:00 PM EST [facility] [address] DISCHARGE SUMMARYPATIENT NAME: YARELI HATCH MR#: [id number] PHYSICIAN: BOGDAN MACIAS MDAUTHOR: Bogdan Macias MD DATE: 02/15/20 RM#: [id number] DATE:HistoryIdentificationPatient is 19-year-old female, currently single, lives in a motel,past psych history of bipolar disorderChief ComplaintThe patient was referred for evaluation because pt having suicidal ideations.History of Presenting IllnessInformation from emergency room,The patients chief complaint is Pt presents [facility] ED as sm8 a walk in for suicidal ideations with the plan to eitheroverdose or jump in traffic. Pt has been staying in a hotel in [place] aftersigning her self out of [facility] in November of 2019. Pt reports she called a cab herselfto bring her here. Pt states she was inpatient at [facility] for a month and wasdischarged yesterday. Pt [...] is allergic to Haldol but thedoctor in [facility] had put her on the medication any ways. Pt reports ahistory of bipolar, borderline personality disorder, and gender identitydisorder. Pt has a history of inpatient [facility]. Pt was last inpatient to [facility] 12/02/2019. Pt reports when recently hada suicide attempt a few days after being dicharged from [facility] last, she statedshe had overdosed on [...] arrangement as she moved out from [facility] to stay with her friend for [...] out regarding staying in a motelin the [facility] as she signed herself out from [facility] on November 2019. Patientstated that she [...] to different places such as [facility], [facility] as [facility]. Later on patient [...] the following new medications:Loratadine* (Claritin*) 10 MG RZYRGF90 MILLIGRAM Orally DAILYQty = 14Refills = 1TOPIRAMATE (TOPAMAX) 25 MG FNWRFQ81 MILLIGRAM Orally TWICE DAILYQty = 20Refills = 1Fluoxetine* (Prozac*) 20 MG TSHYWTN29 MILLIGRAM Orally DAILYQty = 20Refills = 1HydrOXYzine (Atarax*) 50 MG NIVRVHB16 MILLIGRAM Orally TWICE DAILY as needed for AnxietyQty = 20Refills = 1ARIPIPRAZOLE (ABILIEVELIO MAINTENA) 400 MG SUSER.DTHP320 MILLIGRAM Intramuscularly Q15HJnr = 1No RefillsInstruction s:Last IM injection received on May 03, 2020Discharge Activity: As toleratedDischarge diet: Low Fat/Low CholesterolFollow-upFollow up with your Primary care physicianFollow-up with therapist and psychiatrist as recommendedAlso recommended outpatient chemical dependencyReferralsOrdered ReferralsOphthalmology 07/23/20[facility] ([phone])located at [address] in [place] July 23 at 11:30 am.Internal Medicine 06/03/20In person primary care appointment [facility] ([phone]) located at [address] [place] [address] in [place] on June 03 at 2:[address] pm [address] [facility] [address] In person appointment at [facility] ([phone]) [facility] May [facility] at 2:00 pm with HildaBao will need to attend thisappointment in order to receive herAbilify Maintenna injection on 05/31.[facility] [place] [address] In person appointment at [facility] ([phone])located at [address] in [place] onMay 29 at 11:00 amwith Yareli will need to attendthis appointment in order to receive herAbilify Maintenna injection on 05/31.DATE SIGNED: 05/16/20 Electronically SignedTIME SIGNED: 1326 BOGDAN MACIAS MD Name Value Range Interpretation Code Description Data Stephanie rce(s) Supporting Document(s) ID Date Data Source [id number] 05/16/2020 09:41:00 AM EST [address] [id number] NAME: DENISSE HATCHZOIE Jensen#: [id number] PHYSICIAN: HUBER VELAZQUEZ #: [id number] ADM. DATE: 02/15/20PATIENT : 00 DISCH. DATE: [50}DISCHARGE SUMMARYMHU discharge planNicotine Replacement TherapySmoking Status Never smokerPrescribed at discharge Rx not offered [facility]/Drug DisorderAlcohol or Drug Disorder counseling prescribedPersonal Care InstructionsDischarge Activity: As toleratedDischarge diet: Low Fat/Low CholesterolFollow Up CareFollow Up:Follow up with your Primary care physicianFollow-up with therapist and psychiatrist as recommendedAlso recommended outpatient chemical dependencyPriority ItemsUrgent/Important items t hat need to be addressed at primary care follow-upappointmentDischarge InformationDISCHARGE INFORMATION* Thank you for choosing [facility] and allowing us toserve you* Our Goal is to provide the highest quality of care.* This discharge information is to help you better understand your diagnosisand medication* Avoid taking drdf-ugh-kxcbczb medicines unless approved by your physician.* Take your medications as prescribed. DO NOT stop any medications unlessapproved first* Weigh yourself daily. Report any gain of 5 lbs in a week* 24 Hour Crisis HOTLINE available: Call Reachout at * Chem. Dependency: Walk in [facility] ([phone]) and [place] ([phone]) anytime Wednesday thru Wednesday 8 to 10am. [place] ([phone]) anytimeMond thru Wednesday 8 to 10am. [facility] ([phone]) Wednesday or Wednesday from 8to 10am (Bring $30 to [facility]) SMOKIN G CESSATION* Smoking is dangerous to your health. It delays the healing process, andworks against your medications. Not smoking will improve your health* Our hospital participates with the Opt-to-Quit program. You will be contactedafter discharge by the [facility] Smoker's Quitline for support with tobaccocessation. You have the option once contacted to refuse this service.* You can also go online to www.[employer]. Free nicotine replacementsare available ___Attention* You should [...] rce(s) Supporting Document(s) ID Date Data Source [id number] 05/15/2020 01:17:00 PM EST [facility] [address] HEALTH PROGRESS NOTEPATIENT NAME: YARELI HATCH PHYSICIAN: BOGDAN MACIAS MDAUTHOR: Colleen SMITH,DhruvADM. DATE: 02/15/20 MR#: [id number] NOTE DATE: 05/15/20 RM#: [id number] TIME: 1319 [...] rce(s) Supporting Document(s) ID Date Data Source [id number] 05/14/2020 11:49:00 AM EST [address] HEALTH PROGRESS NOTEPATIENT NAME: YARELI AHTCH CATSALVADOR PHYSICIAN: BOGDAN MACIAS MDAUTHOR: Colleen SMITH,DhruvADM. DATE: 02/15/20 MR#: [id number] NOTE DATE: 05/14/20 RM#: [id number] TIME: 1151 is 19-year-old female, currently single, lives in a motel,past psych history of bipolar disorderCC/Hx Present IllnessThe patient was referred for evaluation because pt having suicidal ideations.Events Since Last EntryPatient reporting feeling somewhat better, she is mostly focused on herdischarge plan and she is about to be discharged this prior to going to [facility]. Patient denied having any suicidal, homicidal ideation, [...] rce(s) Supporting Document(s) ID Date Data Source [id number] 05/13/2020 01:19:[address] HEALTH PROGRESS NOTEPATIENT NAME: YARELI HATCH PHYSICIAN: BOGDAN MACIAS MDAUTHOR: Colleen SMITH,DhruvADM. DATE: 02/15/20 MR#: [id number] NOTE DATE: 05/13/20 RM#: [id number] TIME: 1322 [...] QHSPRN PRN POExaminationMusculoskeletalGait normalStation normalResultsLaboratory DataRecent Labs-24 hours11/[id number]-54 (CORDELL) PendingResults Ordered/ReviewedLab Tests reviewedAssessment/PlanDiagnosis1. Major depressive disorderStatus Acute2. Bipolar affective disorder3. Borderline personality disor derCoordination of care provided with nursing staff, treatment team, social work,physician's, familyRisk/benefits discussed side effectsJustification for continued stay danger to self/othersDATE SIGNED: 05/13/20 Electronically SignedTIME SIGNED: 1322 BOGDAN MACIAS MD Name Value Range Interpretation Code Description Data Stephanie rce(s) Supporting Document(s) ID Date Data Source [id number] 05/13/2020 11:14:00 AM EST [facility] Name Value Range Interpretation Code Description Data Stephanie rce(s) Supporting Document(s) SARS coronavirus 2 RNA [facility] This lab was ordered by [facility] and reported by [facility]. ID Date Data Source [id number] 05/14/2020 04:07:00 PM EST [facility] Performed at: RN - [facility] [place] [id number] Director: Samira Cortez MD, Phone: [phone] Name Value Range Interpretation Code Description Data Stephanie rce(s) Supporting Document(s) SARS-CoV-2, CORDELL Not Detected Not Detected [facility] This nucleic acid amplification test [...] SARS-CoV-2 virusand/or diagnosis of COVID-19 infection under ktebxyu801(b)(1) of the Act, 21 U.S.C. 360bbb-3(b) (1), [...] Acid Amplification (CORDELL) ID Date Data Source [id number] 05/10/2020 11:10:00 AM EDT [place] [id number] HEALTH PROGRESS NOTEPATIENT NAME: YARELI HATCH PHYSICIAN: BOGDAN MACIAS MDAUTHOR: Colleen SMITH,Sarahy. DATE: 02/15/20 MR#: [id number] NOTE DATE: 05/10/20 RM#: [id number] TIME: 1113 [...] QHSPRN PRN POExaminationMusculoskeletalGait normalStation normalResultsLaboratory DataRecent Labs-24 hours10/697520JwgzroisjJasula (136 - 147 mmol/L) 141Potassium (3.5 - [...] Value Range Interpretation Code Description Data Stephanie [facility](s) Supporting Document(s) ID Date Data Source [id number] 05/09/2020 05:28:00 PM EDT [facility] Name Value Range Interpretation Code Description Data [facility](s) Supporting Document(s) GLU 80 mg/dL 70-110 [facility] Patients taking Sulfasalazine may have f alsely depressedGlucose levels. Patients taking Sulfapyridine may havefalsely elevated Glucose levels. Patients should be drawnfor Glucose before the initial administration of eitherdrug. BUN 12 mg/dL 7-23 [facility] CRE 0.502 mg/dL 0.500-1.300 [facility] CHLORIDE 109 mmol/L 99-110 [facility] NA 141 mmol/L 136-147 [facility] POTASSIUM 4.5 mmol/L 3.5-5.1 [facility] TCO2 26 mmol/L 20-33 [facility] ANION GAP 10.5 10.0-20.0 [facility] CA 9.1 mg/dL 8.3-10.7 [facility] ALKALINE PHOS 142 U/L 82-169 [facility] TP 7.7 g/dL 6.0-7.8 [facility] ALB 4.0 g/dL 3.5-5.0 [facility] ESRD Dialysis patient Albumin reference range: 2.9-4.4 g/dL GL 3.7 g/dL 2.3-3.5 [facility] A/G 1.1 1.0-2.5 [facility] T. BILIRUBIN 0.4 mg/dL 0.1-1.1 [facility] Total Bilirubin is n ot recommended forpatients undergoing treatment with eltrombopag (Promacta)due to the potential for falsely elevated results. ALTI 57 U/L 6-54 [facility] Patients taking Sulfasalazine and/or Sul fapyridine may havefalsely depressed ALT levels. Patients should be drawn forALT before the initial administration of either drug. AST 30 U/L 6-38 [facility] Patients taking Sulfasalazine and/or Sul fapyridine may havefalsely depressed AST levels. Patients should be drawn forAST before the initial administration of either drug. ID Date Data Source [id number] 05/09/2020 05:00:00 PM EDT [facility] Name Value Range Interpretation Code Description Data Stephanie rce(s) Supporting Document(s) WBC 7.62 x10E3/uL 4.0-10.5 [facility] RBC 4.40 x10E6/uL 4.20-5.40 [facility] Hemoglobin 12.7 g/dL 12.0-16.0 [facility] Hematocrit 38.7 % 37.0-47.0 [facility] MCV 88.0 fL 81.0-99.0 [facility] MCH 28.9 pg 27.0-31.0 [facility] MCHC 32.8 g/dL 32.7-35.6 [facility] RDW 12.7 % 11.5-14.0 [facility] Platelet count 254 x10E3/uL 150-450 [facility] ital MPV 9.9 fl 6.9-9.5 [facility] Neutrophils 58.1 % 34-64 [facility] Lymphocytes 34.1 % 25-45 [facility] Monocytes 6.4 % 1.7-10.6 [facility] Eosinophils 0.9 % 0.4-7.0 [facility] Basophils 0.1 % 0.1-2.0 [facility] Imm. Gran. 0.4 % 0.1-2.0 [facility] Abs. Neutro. 4.42 x10E3/uL 1.2-7.6 [facility] Abs. Lymph. 2.60 x10E3/uL 1.0-3.5 [facility] Abs. Will. 0.49 x10E3/uL 0.1-1.0 [facility] Abs. Eosin. 0.07 x10E3/uL 0.1-0.7 [facility] Abs. Baso. 0.01 x10E3/uL 0.0-0.1 [facility] Abs. Imm. Gran. 0.03 x10E3/uL 0.0-0.1 [facility] ANRBC% 0 % 0 [facility] ID Date Data Source [id number] 05/09/2020 01:04:00 PM EDT [facility]on [facility] [place], [place] [address]VFCFWS HEALTH PROGRESS NOTEPATIENT NAME: YARELI HATCH PHYSICIAN: BOGDAN MACIAS, MDAUTHOR: Colleen SMITH,Sarahy. DATE: 02/15/20 MR#: [id number] NOTE DATE: 05/09/20 RM#: [id number] TIME: 1307 [...] to self/othersDATE SIGNED: 05/09/20 Electronically SignedTIME SIGNED: 9898 BOGDAN MACIAS MD Name Value Range Interpretation Code Description Data Stephanie rce(s) Supporting Document(s) ID Date Data Source [id number] 05/08/2020 12:46:00 PM EDT [address] HEALTH PROGRESS NOTEPATIENT NAME: YARELI HATCH PHYSICIAN: BOGDAN MACIAS MDAUTHOR: Colleen SMITH,DhruvADM. DATE: 02/15/20 MR#: [id number] NOTE DATE: 05/08/20 RM#: [id number] TIME: 1248 [...] rce(s) Supporting Document(s) ID Date Data Source [id number] 05/07/2020 01:49:00 PM EDT [address] HEALTH PROGRESS NOTEPATIENT NAME: YARELI HATCH PHYSICIAN: BOGDAN MACIAS MDAUTHOR: Colleen SMITH,DhruvADM. DATE: 02/15/20 MR#: [id number] NOTE DATE: 05/07/20 RM#: [id number] TIME: 1351 [...] rce(s) Supporting Document(s) ID Date Data Source [id number] 05/06/2020 01:32:00 PM EDT [facility] [place] [id number] HEALTH PROGRESS NOTEPATIENT NAME: YARELI HATCH PHYSICIAN: BOGDAN MACIAS MDAUTHOR: Colleen SMITH,DhruvADM. DATE: 02/15/20 MR#: [id number] NOTE DATE: 05/06/20 RM#: [id number] TIME: 1335 is 19-year-old female, currently single, lives in a motel,past psych history of bipolar disorderCC/Hx Present IllnessThe patient was referred for evaluation because pt having suicidal ideations.Events Since Last EntryPatient was seen along with sitter as well as potable water treatment operator on otherside, patient was resting comfortable, discussed [...] rce(s) Supporting Document(s) ID Date Data Source [id number] 05/05/2020 11:49:00 PM EDT [address] [address]KURSVWTC NOTE FOLLOW UPPATIENT NAME: YARELI HATCH PHYSICIAN: BOGDAN MACIAS MDAUTHOR: Dori SMITH,[facility]. DATE: 02/15/20 MR#: [id number] NOTE DATE: 05/05/20 #: [id number] TIME: 0014 [...] rce(s) Supporting Document(s) ID Date Data Source [id number] 05/05/2020 02:12:00 AM EDT [facility] Name Value Range Interpretation Code Description Data Stephanie rce(s) Supporting Document(s) MAGNESIUM 2.2 mg/dL 1.6-2.6 [facility] ID Date Data Source [id number] 05/05/2020 02:12:00 AM EDT [facility] Name Value Range Interpretation Code Description Data Stephanie rce(s) Supporting Document(s) ALLEN 4.5 mg/dL 2.5-4.5 [facility] ID Date Data Source [id number] 05/05/2020 02:12:00 AM EDT [facility] Name Value Range Interpretation Code Description Data Stephanie rce(s) Supporting Document(s) GLU 97 mg/dL 70-110 [facility] Patients taking Sulfasalazine may have f alsely depressedGlucose levels. Patients taking Sulfapyridine may havefalsely elevated Glucose levels. Patients should be drawnfor Glucose before the initial administration of eitherdrug. BUN 18 mg/dL 7-23 [facility] CRE 0.571 mg/dL 0.500-1.300 [facility] CHLORIDE 109 mmol/L 99-110 [facility] NA 142 mmol/L 136-147 [facility] POTASSIUM 4.3 mmol/L 3.5-5.1 [facility] TCO2 27 mmol/L 20-33 [facility] ANION GAP 10.3 10.0-20.0 [facility] CA 8.7 mg/dL 8.3-10.7 [facility] ALKALINE PHOS 126 U/L 82-169 [facility] TP 7.1 g/dL 6.0-7.8 [facility] ALB 3.6 g/dL 3.5-5.0 [facility] ESRD Dialysis patient Albumin reference range: 2.9-4.4 g/dL GL 3.5 g/dL 2.3-3.5 [facility] A/G 1.0 1.0-2.5 [facility] T. BILIRUBIN 0.3 mg/dL 0.1-1.1 [facility] [employer] [facility] [place] Total Bilirubin is n ot recommended forpatients undergoing treatment with eltrombopag (Promacta)due to the potential for falsely elevated results. ALTI 47 U/L 6-54 [facility] Patients taking Sulfasalazine and/or Sul fapyridine may havefalsely depressed ALT levels. Patients should be drawn forALT before the initial administration of either drug. AST 18 U/L 6-38 [facility] Patients taking Sulfasalazine and/or Sul fapyridine may havefalsely depressed AST levels. Patients should be drawn forAST before the initial administration of either drug. ID Date Data Source [id number] 05/05/2020 01:52:00 AM EDT [facility] Name Value Range Interpretation Code Description Data Stephanie rce(s) Supporting Document(s) WBC 8.06 x10E3/uL 4.0-10.5 [facility] RBC 4.09 x10E6/uL 4.20-5.40 [facility] Hemoglobin 11.8 g/dL 12.0-16.0 [facility] Hematocrit 36.6 % 37.0-47.0 [facility] MCV 89.5 fL 81.0-99.0 [facility] MCH 28.9 pg 27.0-31.0 [facility] MCHC 32.2 g/dL 32.7-35.6 [facility] RDW 12.6 % 11.5-14.0 [facility] Platelet count 226 x10E3/uL 150-450 N [facility] ital MPV 9.6 fl 6.9-9.5 [facility] Neutrophils 51.7 % 34-64 [facility] Lymphocytes 38.1 % 25-45 [facility] Monocytes 8.4 % 1.7-10.6 [facility] Eosinophils 1.1 % 0.4-7.0 [facility] Basophils 0.2 % 0.1-2.0 [facility] Imm. Gran. 0.5 % 0.1-2.0 [facility] Abs. Neutro. 4.16 x10E3/uL 1.2-7.6 [facility] [place] Abs. Lymph. 3.07 x10E3/uL 1.0-3.5 [facility] Abs. Will. 0.68 x10E3/uL 0.1-1.0 [facility] Abs. Eosin. 0.09 x10E3/uL 0.1-0.7 [facility] Abs. Baso. 0.02 x10E3/uL 0.0-0.1 [facility] Abs. Imm. Gran. 0.04 x10E3/uL 0.0-0.1 [facility] ANRBC% 0 % 0 [facility] ID Date Data Source [id number] 05/05/2020 12:57:00 AM EDT [facility] [place], [place] [address]GHNUZLYA NOTE FOLLOW UPPATIENT NAME: DENISSE HATCHYLA CHANELLGIOVANNY PHYSICIAN: BOGDAN MACIAS MDAUTHOR: Lea Yusuf MD. DATE: 02/15/20 MR#: [id number] NOTE DATE: 05/05/20 RM#: [id number] TIME: 116 [...] rce(s) Supporting Document(s) ID Date Data Source [id number] 05/03/2020 01:24:00 PM EDT [facility] [address] [address]RGRTBQ HEALTH PROGRESS NOTEPATIENT NAME: YARELI HATCH PHYSICIAN: BOGDAN MACIAS, MDAUTHOR: Colleen SMITH,Sarahy. DATE: 02/15/20 MR#: [id number] NOTE DATE: 05/03/20 RM#: [id number] TIME: 1325 [...] rce(s) Supporting Document(s) ID Date Data Source [id number] 05/02/2020 01:53:00 PM EDT [address] HEALTH PROGRESS NOTEPATIENT NAME: YARELI HATCH PHYSICIAN: BOGDAN MACIAS MDAUTHOR: Colleen SMITH,DhruvADM. DATE: 02/15/20 MR#: [id number] NOTE DATE: 05/02/20 RM#: [id number] TIME: 1355 [...] current treatment plan, discussed with [facility]reg[facility] as well as increasing further [...] rce(s) Supporting Document(s) ID Date Data Source [id number] 05/01/2020 01:01:00 PM EDT [place] [id number] HEALTH PROGRESS NOTEPATIENT NAME: YARELI HATCH PHYSICIAN: BOGDAN MACIAS MDAUTHOR: Colleen SMITH,DhruvADM. DATE: 02/15/20 MR#: [id number] NOTE DATE: 05/01/20 RM#: 317EVALUATION TIME: 1303 [...] rce(s) Supporting Document(s) ID Date Data Source [id number] 04/30/2020 01:52:00 PM EDT [facility] PROGRESS NOTEPATIENT NAME: YARELI HATCH PHYSICIAN: BOGDAN MACIAS, JESSICAUTHOR: Colleen SMITH,DhruvADM. DATE: 02/15/20 MR#: [id number] NOTE DATE: 04/30/20 RM#: 317EVALUATION TIME: 1355 [...] rce(s) Supporting Document(s) ID Date Data Source [id number] 04/29/2020 11:16:00 AM EDT [address] HEALTH PROGRESS NOTEPATIENT NAME: YARELI HATCH PHYSICIAN: BOGDAN MACIAS MDAUTHOR: Colleen SMITH,DhruvADM. DATE: 02/15/20 MR#: [id number] NOTE DATE: 04/29/20 RM#: 317EVALUATION TIME: 1120 [...] current safe discharge plan regarding going to [facility] as well.Patient denied having any medication [...] rce(s) Supporting Document(s) ID Date Data Source [id number] 04/26/2020 01:20:00 PM EDT [place] [id number] HEALTH PROGRESS NOTEPATIENT NAME: YARELI HATCH PHYSICIAN: BOGDAN MACIAS MDAUTHOR: Colleen SMITH,DhruvADM. DATE: 02/15/20 MR#: [id number] NOTE DATE: 04/26/20 RM#: [id number] TIME: 1323 [...] rce(s) Supporting Document(s) ID Date Data Source [id number] 04/25/2020 01:43:00 PM EDT [facility] [place], [place] [address]RRQCYI HEALTH PROGRESS NOTEPATIENT NAME: YARELI HATCH PHYSICIAN: BOGDAN MACIAS MDAUTHOR: Colleen SMITH,Sarahy. DATE: 02/15/20 MR#: [id number] NOTE DATE: 04/25/20 RM#: [id number] TIME: 1345 [...] rce(s) Supporting Document(s) ID Date Data Source [id number] 04/24/2020 02:01:00 PM EDT [address] HEALTH PROGRESS NOTEPATIENT NAME: YARELI HATCH PHYSICIAN: BOGDAN MACIAS MDAUTHOR: Colleen SMITH,DhruvADM. DATE: 02/15/20 MR#: [id number] NOTE DATE: 04/24/20 RM#: 317EVALUATION TIME: 1404 [...] sent areferral to supportive environment such as [facility] and other places as well. Atthe same [...] rce(s) Supporting Document(s) ID Date Data Source [id number] 04/23/2020 01:23:00 PM EDT [address] HEALTH PROGRESS NOTEPATIENT NAME: YARELI HATCH PHYSICIAN: BOGDAN MACIAS MDAUTHOR: Colleen SMITH,DhruvADM. DATE: 02/15/20 MR#: [id number] NOTE DATE: 04/23/20 #: 317EVALUATION TIME: 1326 [...] as well. [facility] and the letter was delivered to her which patient later on agreedfor further treatment to [facility] as well. Patient also reporting medicationsworking okay, [...] current treatment plan, discussed with the [facility]reg[facility], continuing current medication [...] rce(s) Supporting Document(s) ID Date Data Source [id number] 04/22/2020 09:56:00 AM EDT [address] HEALTH PROGRESS NOTEPATIENT NAME: [facility]EL[facility]ATCH [facility] PH[facility]ICIAN: BOGDAN MACIAS MDAUTHOR: Ana Win. DATE: 02/15/20 MR#: [id number] NOTE DATE: 04/22/20 RM#: 317EVALUATION TIME: 1008 [...] (Clotrimazole) 0 DIRECTED TOPNasal Lubricant (Saline Nasal [place]) 0 Q3HPRN PRN NASALExaminationMusculoskeletalGait normalStation normalMental Status [...] rce(s) Supporting Document(s) ID Date Data Source [id number] 04/19/2020 01:13:00 PM EDT Joe heaton [address] [address]JOGPMN HEALTH PROGRESS NOTEPATIENT NAME: YARELI HATCH PHYSICIAN: BOGDAN MACIAS, MDAUTHOR: Colleen SMITH,Sarahy. DATE: 02/15/20 MR#: [id number] NOTE DATE: 04/19/20 RM#: [id number] TIME: 1315 [...] (Clotrimazole) 0 DIRECTED TOPNasal Lubricant (Saline Nasal [place]) 0 Q3HPRN PRN NASALExaminationMusculoskeletalGait normalStation normalResultsResults Ordered/ReviewedLab Tests reviewedAssessment/PlanDiagnosis1. Major depressive disorderStatus Acute2. Suicide attemptStatus Acute3. Bipolar affective disorderCoordination of care provided with nursing staff, treatment teamRisk/benefits discussed side effectsDATE SIGNED: 04/19/20 Electronically SignedTIME SIGNED: 1315 BOGDAN MACIAS MD Name Value Range Interpretation Code Description Data Stephanie rce(s) Supporting Document(s) ID Date Data Source [id number] 04/18/2020 12:59:00 PM EDT [facility] HEALTH PROGRESS NOTEPATIENT NAME: YARELI HATCH PHYSICIAN: BOGDAN MACIAS MDAUTHOR: Colleen SMITH,DawsonvAPUJA. DATE: 02/15/20 MR#: [id number] NOTE DATE: 04/18/20 RM#: 317EVALUATION TIME: 1301 [...] (Clotrimazole) 0 DIRECTED TOPNasal Lubricant (Saline Nasal [place]) 0 Q3HPRN PRN NASALExaminationMusculoskeletalGait normalStation normalResultsLaboratory DataRecent [...] rce(s) Supporting Document(s) ID Date Data Source [id number] 04/17/2020 07:50:00 PM EDT [facility] Name Value Range Interpretation Code Description Data Stephanie rce(s) Supporting Document(s) LIP 60.0 U/L 73-393 [facility] ID Date Data Source [id number] 04/17/2020 07:50:00 PM EDT [facility] Name Value Range Interpretation Code Description Data Stephanie rce(s) Supporting Document(s) GLU 113 mg/dL 70-110 [facility] Patients taking Sulfasalazine may have f alsely depressedGlucose levels. Patients taking Sulfapyridine may havefalsely elevated Glucose levels. Patients should be drawnfor Glucose before the initial administration of eitherdrug. BUN 17 mg/dL 7-23 [facility] CRE 0.692 mg/dL 0.500-1.300 [facility] CHLORIDE 109 mmol/L 99-110 [facility] NA 141 mmol/L 136-147 [facility] POTASSIUM 3.9 mmol/L 3.5-5.1 [facility] TCO2 24 mmol/L 20-33 [facility] ANION GAP 11.9 10.0-20.0 [facility] CA 9.1 mg/dL 8.3-10.7 [facility] ALKALINE PHOS 148 U/L 82-169 [facility] TP 8.0 g/dL 6.0-7.8 [facility] ALB 4.3 g/dL 3.5-5.0 [facility] ESRD Dialysis patient Albumin reference range: 2.9-4.4 g/dL GL 3.7 g/dL 2.3-3.5 [facility] A/G 1.2 1.0-2.5 [facility] T. BILIRUBIN 0.3 mg/dL 0.1-1.1 [facility] [place] Total Bilirubin is n ot recommended forpatients undergoing treatment with eltrombopag (Promacta)due to the potential for falsely elevated results. ALTI 45 U/L 6-54 [facility] Patients taking Sulfasalazine and/or Sul fapyridine may havefalsely depressed ALT levels. Patients should be drawn forALT before the initial administration of either drug. AST 26 U/L 6-38 [facility] Patients taking Sulfasalazine and/or Sul fapyridine may havefalsely depressed AST levels. Patients should be drawn forAST before the initial administration of either drug. ID Date Data Source [id number] 04/17/2020 07:17:00 PM EDT [facility] [place] Name Value Range Interpretation Code Description Data Stephanie rce(s) Supporting Document(s) HbA1C 4.70 % 3.8-5.6 [facility] Suggested Diagnosis HbA1c% Diabet ic >/= 6.5Prediabetes 5.7%-6.4%Normal < 5.7% ID Date Data Source [id number] 04/17/2020 06:39:00 PM EDT [facility] Name Value Range Interpretation Code Description Data Stephanie rce(s) Supporting Document(s) WBC 6.99 x10E3/uL 4.0-10.5 [facility] RBC 4.51 x10E6/uL 4.20-5.40 [facility] Hemoglobin 13.0 g/dL 12.0-16.0 [facility] Hematocrit 39.4 % 37.0-47.0 [facility] MCV 87.4 fL 81.0-99.0 [facility] MCH 28.8 pg 27.0-31.0 [facility] MCHC 33.0 g/dL 32.7-35.6 [facility] RDW 12.7 % 11.5-14.0 [facility] Platelet count 260 x10E3/uL 150-450 [facility] ital MPV 9.5 fl 6.9-9.5 [facility] Neutrophils 53.5 % 34-64 [facility] Lymphocytes 38.1 % 25-45 [facility] Monocytes 6.9 % 1.7-10.6 [facility] Eosinophils 0.9 % 0.4-7.0 [facility] Basophils 0.3 % 0.1-2.0 [facility] Imm. Gran. 0.3 % 0.1-2.0 [facility] Abs. Neutro. 3.75 x10E3/uL 1.2-7.6 [facility] Abs. Lymph. 2.66 x10E3/uL 1.0-3.5 [facility] Abs. Will. 0.48 x10E3/uL 0.1-1.0 [facility] Abs. Eosin. 0.06 x10E3/uL 0.1-0.7 [facility] Abs. Baso. 0.02 x10E3/uL 0.0-0.1 [facility] Abs. Imm. Gran. 0.02 x10E3/uL 0.0-0.1 [facility] ANRBC% 0 % 0 [facility] ID Date Data Source [id number] 04/17/2020 05:59:00 PM EDT [address] [id number] REPORTPATIENT NAME: YARELI HATCH MR#: [id number] PHYSICIAN: ANGELA VELAZQUEZONSULTING PHYSICIAN: Theresa Chowdhury DATE: [...] judgement, abnormal insight, anxiousData ReviewLaboratory Datapending.ImagingEXAM# TYPE/EXAM [id number] US/U/S COMPLETE UPPER ABDOMENDATE OF EXAMINATION: 04/17/2020 8:00 EDTU/S COMPLETE UPPER ABDOMENCOMPARED TO: No priorsHISTORY: PainReal-time ultrasound imaging was performed utilizing B-mode/bushc scaleand color Doppler imaging where applicable.Mild fatty [...] Full codePlan discussed with patientCase discussed with immigration case manager, nursing staffDATE SIGNED: 04/17/20 Electronically SignedTIME SIGNED: 1806 [employer]-Janette CRYS Name Value Range Interpretation Code Description Data Stephanie rce(s) Supporting Document(s) ID Date Data Source [id number] 04/17/2020 01:29:00 PM EDT [address] PROGRESS NOTEPATIENT NAME: YARELI HATCH PHYSICIAN: BOGDAN MACIAS MDAUTHOR: Colleen SMITH,DhruvAPUJA. DATE: 02/15/20 MR#: [id number] NOTE DATE: 04/17/20 RM#: [id number] TIME: 1331 [...] (Clotrimazole) 0 DIRECTED TOPNasal Lubricant (Saline Nasal [place]) 0 Q3HPRN PRN NASALExaminationMusculoskeletalGait normalStation normalResultsResults Ordered/ReviewedLab Tests reviewedAssessment/PlanDiagnosis1. Bipolar disorder, manicCoordination of care provided with nursing staff, treatment teamRisk/benefits discussed side effectsJustification for continued stay danger to self/others, behavior intolerableDATE SIGNED: 04/17/20 Electronically SignedTIME SIGNED: 1330 BOGDAN MACIAS MD Name Value Range Interpretation Code Description Data Stephanie e(s) Supporting Document(s) ID Date Data Source [id number] 04/17/2020 01:00:00 PM EDT Joe heaton Exam Number: [id number] OF EXAMINATIO N: 04/17/2020 8:00 EDTU/S COMPLETE [...] Hospital(s) Supporting Document(s) ID Date Data Source [id number] 04/16/2020 01:31:00 PM EDT Joe [facility]on [address] HEALTH PROGRESS NOTEPATIENT NAME: YARELI HATCH [employer] PHYSICIAN: BOGDAN MACIAS MDAUTHOR: Colleen SMITH,DhruvADM. DATE: 02/15/20 MR#: [id number] NOTE DATE: 04/16/20 RM#: [id number] TIME: 1336 [...] (Clotrimazole) 0 DIRECTED TOPNasal Lubricant (Saline Nasal [place]) 0 Q3HPRN PRN NASALIbuprofen (Motrin) 600 MG Q6HPRN PRN POExaminationMusculoskeletalGait normalStation normalResultsResults Ordered/ReviewedLab Tests reviewedAssessment/PlanDiagnosis1. Bipolar disorder, manicCoordination of care provided with nursing staff, treatment teamRisk/benefits discussed side eff ectsJustification for continued stay danger to self/othersDATE SIGNED: 04/16/20 Electronically SignedTIME SIGNED: 1336 BOGDAN MACIAS MD Name Value Range Interpretation Code Description Data Stephanie rce(s) Supporting Document(s) ID Date Data Source [id number] 04/15/2020 11:11:00 AM EDT [address] HEALTH PROGRESS NOTEPATIENT NAME: YARELI HATCH PHYSICIAN: BOGDAN MACIAS MDAUTHOR: Colleen SMITH,DhruvADM. DATE: 02/15/20 MR#: [id number] NOTE DATE: 04/15/20 RM#: [id number] TIME: 1114 [...] (Clotrimazole) 0 DIRECTED TOPNasal Lubricant (Saline Nasal [place]) 0 Q3HPRN PRN NASALIbuprofen (Motrin) 600 MG Q6HPRN PRN POExaminationMusculoskeletalGait normalStation normalResultsResults Ordered/ReviewedLab Tests reviewedAssessment/PlanDiagnosis1. Bipolar disorder, manicCoordination of care provided with nursing staff, treatment teamRisk/benefits discussed side effectsDATE SIGNED: 04/15/20 Electronically SignedTIME SIGNED: 1114 BOGDAN MACIAS MD Name Value Range Interpretation Code Description Data Stephanie rce(s) Supporting Document(s) ID Date Data Source [id number] 04/14/2020 12:01:00 PM EDT [facility] [place] [id number] HEALTH PROGRESS NOTEPATIENT NAME: DAMARISYARELI CAPELLAN PHYSICIAN: BOGDAN MACIAS MDAUTHOR: Colleen SMITH,DhruvADM. DATE: 02/15/20 MR#: [id number] NOTE DATE: 04/14/20 RM#: 318EVALUATION TIME: 1203 [...] (Clotrimazole) 0 DIRECTED TOPNasal Lubricant (Saline Nasal [place]) 0 Q3HPRN PRN NASALIbuprofen (Motrin) 600 MG [...] rce(s) Supporting Document(s) ID Date Data Source [id number] 04/12/2020 11:39:00 AM EDT [address] HEALTH PROGRESS NOTEPATIENT NAME: YARELI HATCH PHYSICIAN: BOGDAN MACIAS MDAUTHOR: Colleen SMITH,DhruvADM. DATE: 02/15/20 MR#: [id number] NOTE DATE: 04/12/20 RM#: 318EVALUATION TIME: 1141 is 19-year-old female, currently single, lives in a motel,past psych history of bipolar disorderCC/Hx Present IllnessThe patient was referred for evaluation because pt having suicidal ideations.Events Since Last EntryPatient reporting feeling somewhat okay, she stated that at this point shefeels comfortable going back to [facility] as well as, discussed with the [...] (Clotrimazole) 0 DIRECTED TOPNasal Lubricant (Saline Nasal [place]) 0 Q3HPRN PRN NASALIbuprofen (Motrin) 600 MG [...] rce(s) Supporting Document(s) ID Date Data Source [id number] 04/11/2020 01:20:00 PM EDT [address] HEALTH PROGRESS NOTEPATIENT NAME: YARELI HATCH PHYSICIAN: BOGDAN MACIAS MDAUTHOR: Colleen SMITH,DhruvADM. DATE: 02/15/20 MR#: [id number] NOTE DATE: 04/11/20 RM#: 318EVALUATION TIME: 1323 [...] (Clotrimazole) 0 DIRECTED TOPNasal Lubricant (Saline Nasal [place]) 0 Q3HPRN PRN NASALIbuprofen (Motrin) 600 MG [...] rce(s) Supporting Document(s) ID Date Data Source [id number] 04/10/2020 01:13:00 PM EDT [address] HEALTH PROGRESS NOTEPATIENT NAME: YARELI HATCH PHYSICIAN: BOGDAN MACIAS MDAUTHOR: Colleen SMITH,DhruvADM. DATE: 02/15/20 MR#: [id number] NOTE DATE: 04/10/20 RM#: 318EVALUATION TIME: 1317 [...] continue current treatment plan, patient is recommended [facility] in 6 months retention due to ongoing [...] (Clotrimazole) 0 DIRECTED TOPNasal Lubricant (Saline Nasal [place]) 0 Q3HPRN PRN NASALIbuprofen (Motrin) 600 MG [...] rce(s) Supporting Document(s) ID Date Data Source [id number] 04/09/2020 01:48:00 PM EDT [address] HEALTH PROGRESS NOTEPATIENT NAME: YARELI HATCH PHYSICIAN: BOGDAN MACIAS MDAUTHOR: Colleen SMITH,DhruvADM. DATE: 02/15/20 MR#: [id number] NOTE DATE: 04/09/20 RM#: 318EVALUATION TIME: 1353 is 19-year-old female, currently single, lives in a motel,past psych history of bipolar disorderCC/Hx Present IllnessThe patient was referred for evaluation because pt having suicidal ideations.Events Since Last EntryPatient was somewhat upset later on expressing that she wanted to stay here andshe does not feel comfortable going to [facility] where she came from as well. Wediscussed [...] sort of secondary [facility] Offered patient all available options which richelle bansal seems to be refusingand some of other places patient was not accepted due to prior history as well.At this point [facility] is also involved, also planning to add voluntaryhospitalization and providing all [facility]. Discussed with the patient about maintaining her [...] (Clotrimazole) 0 DIRECTED TOPNasal Lubricant (Saline Nasal [place]) 0 Q3HPRN PRN NASALIbuprofen (Motrin) 600 MG [...] rce(s) Supporting Document(s) ID Date Data Source [id number] 04/08/2020 03:04:00 PM EDT [facility] [place] [id number] HEALTH PROGRESS NOTEPATIENT NAME: YARELI HATCH CATSALVADOR PHYSICIAN: BOGDAN MACIAS MDAUTHOR: Colleen SMITH,DhruvADM. DATE: 02/15/20 MR#: [id number] NOTE DATE: 04/08/20 RM#: 318EVALUATION TIME: 1506 [...] (Clotrimazole) 0 DIRECTED TOPNasal Lubricant (Saline Nasal [place]) 0 Q3HPRN PRN NASALIbuprofen (Motrin) 600 MG [...] rce(s) Supporting Document(s) ID Date Data Source [id number] 04/05/2020 02:20:00 PM EDT Joe [address] PROGRESS NOTEPATIENT NAME: YARELI HATCH PHYSICIAN: BOGDAN MACIAS MDAUTHOR: Pasquale WHITE,Ana. DATE: 02/15/20 MR#: [id number] NOTE DATE: 04/05/20 RM#: 318EVALUATION TIME: 1427 [...] (Clotrimazole) 0 DIRECTED TOPNasal Lubricant (Saline Nasal [place]) 0 Q3HPRN PRN NASALIbuprofen (Motrin) 600 MG [...] rce(s) Supporting Document(s) ID Date Data Source [id number] 04/05/2020 01:38:00 PM EDT [address] [address]ANZWMA HEALTH PROGRESS NOTEPATIENT NAME: YARELI HATCH PHYSICIAN: BOGDAN MACIAS MDAUTHOR: Colleen SMITH,DhJennyfer. DATE: 02/15/20 MR#: [id number] NOTE DATE: 04/05/20 RM#: 318EVALUATION TIME: 1342 [...] (Clotrimazole) 0 DIRECTED TOPNasal Lubricant (Saline Nasal [place]) 0 Q3HPRN PRN NASALIbuprofen (Motrin) 600 MG [...] rce(s) Supporting Document(s) ID Date Data Source [id number] 04/04/2020 01:16:00 PM EDT [facility] [id number] HEALTH PROGRESS NOTEPATIENT NAME: DAMARISYARELI PHYSICIAN: BOGDAN MACIAS MDAUTHOR: Colleen SMITH,DhruvADM. DATE: 02/15/20 MR#: [id number] NOTE DATE: 04/04/20 RM#: 318EVALUATION TIME: 1321 is 19-year-old female, currently single, lives in a motel,past psych history of bipolar disorderCC/Hx Present IllnessThe patient was referred for evaluation because pt having suicidal ideations.Events Since Last EntryPatient reported earlier to the potable water treatment operator regarding that she haddifficulty with her mood [...] same time we willconsider to [facility] better compliance and plan to discontinueall [...] (Clotrimazole) 0 DIRECTED TOPNasal Lubricant (Saline Nasal [place]) 0 Q3HPRN PRN NASALClonidine (Catapres) 0.1 MG [...] rce(s) Supporting Document(s) ID Date Data Source [id number] 04/04/2020 11:16:00 AM EDT [address] HEALTH PROGRESS NOTEPATIENT NAME: YARELI HATCH PHYSICIAN: BOGDAN MACIAS MDAUTHOR: Ana Win. DATE: 02/15/20 MR#: [id number] NOTE DATE: 04/04/20 RM#: 318EVALUATION TIME: 1120 [...] (Clotrimazole) 0 DIRECTED TOPNasal Lubricant (Saline Nasal [place]) 0 Q3HPRN PRN NASALClonidine (Catapres) 0.1 MG [...] rce(s) Supporting Document(s) ID Date Data Source [id number] 04/03/2020 01:35:00 PM EDT [place] [address] [place], [place] [address]ER HEALTH PROGRESS NOTEPATIENT NAME: YARELI HATCH PHYSICIAN: BOGDAN MACIAS MDAUTHOR: Colleen SMITH,DawsonvAPUJA. DATE: 02/15/20 MR#: [id number] NOTE DATE: 04/03/20 RM#: 318EVALUATION TIME: 1338 [...] feel comfortable returning back [facility] wherethere are bunch of drug addicts and [...] (Clotrimazole) 0 DIRECTED TOPNasal Lubricant (Saline Nasal [place]) 0 Q3HPRN PRN NASALClonidine (Catapres) 0.1 MG [...] rce(s) Supporting Document(s) ID Date Data Source [id number] 04/02/2020 11:54:00 AM EDT [address] HEALTH PROGRESS NOTEPATIENT NAME: YARELI HATCH PHYSICIAN: BOGDAN MACIAS MDAUTHOR: Ana Win. DATE: 02/15/20 MR#: [id number] NOTE DATE: 04/02/20 RM#: 318EVALUATION TIME: 1638 [...] rce(s) Supporting Document(s) ID Date Data Source [id number] 04/03/2020 07:41:00 AM EDT [place] [address] [address]CKRQS NAME: DAMARIS,YARELI Jensen#: [id number] PHYSICIAN: BOGDAN MACIAS MD ADM. DATE: 02/15/20PROGRESS NOTE DATE: 04/02/20 RM.#: 318ACCOUNT #: [id number] NOTEIDENTIFICATION: A 19-year-old female with schizoaffective disorder,borderline personality disorder.VITAL SIGNS: Temperature of 97, pulse of 105, respirations 16, blood tjlsgvuo381/83.SUBJECTIVE: The patient came to the interview room. [...] Dictated: 04/02/2020 11:24:04Date Transcribed: 04/03/2020 06:41:37JV/RAVJob #: [id number]: 04/02/20 1124 Electronically SignedTRANS:04/03/20 0741 FILI CANELA MDTRANS BY:IATDATE SIGNED:04/03/20REPORT COPY TO: Name Value Range Interpretation Code Description Data Stephanie rce(s) Supporting Document(s) ID Date Data Source [id number] 04/01/2020 02:07:00 PM EDT [place] [id number] HEALTH PROGRESS NOTEPATIENT NAME: YARELI HATCH PHYSICIAN: BOGDAN MACIAS MDAUTHOR: Frantz WinADM. DATE: 02/15/20 MR#: [id number] NOTE DATE: 04/01/20 RM#: 318EVALUATION TIME: 1410 [...] violated, and that she would notify the mergers and acquisitions attorney because sheis transgender. Yareli disclosed that [...] rce(s) Supporting Document(s) ID Date Data Source [id number] 04/02/2020 03:13:00 AM EDT [address] [address]WTQSTZB NAME: YARELI HATCH Janette Jensen#: [id number] PHYSICIAN: BOGDAN MACIAS MD ADM. DATE: 02/15/20PROGRESS NOTE DATE: 04/01/20 RM.#: [id number] #: [id number] NOTEIDENTIFICATION: A 19-year-old female with schizoaffective disorder, [...] Dictated: 04/01/2020 10:44:46Date Transcribed: 04/02/2020 02:13:19JV/GBJob #: [id number]: 04/01/20 1044 Electronically SignedTRANS:04/02/203 FILI CANELA MDTRANS BY:KIERRA SIGNED:04/02/20REPORT COPY TO: Name Value Range Interpretation Code Description Data Stephanie rce(s) Supporting Document(s) ID Date Data Source [id number] 03/29/2020 11:29:00 AM EDT [address] HEALTH PROGRESS NOTEPATIENT NAME: YARELI HATCH PHYSICIAN: BOGDAN MACIAS, MDAUTHOR: Colleen SMITH,Sarahy. DATE: 02/15/20 MR#: [id number] NOTE DATE: 03/29/20 RM#: 318EVALUATION TIME: 1131 is 19-year-old female, currently single, well lives in community health, past psych history of bipolar disorderCC/Hx [...] safe dischargeplan, currently waiting on supportive environment, [facility] has been involved aswell.ObjectiveVital SignsVital Signs-LastResult Date TimeTemp 98.9 03/29 0647Pulse Ox 99 03/28 1100B/P 96/61 03/28 1100Pulse 98 03/28 1100Resp 16 03/28 1100Current MedicationsSertraline HCl (Zoloft) 75 MG DAILY POBenzocaine/Pectin/Carboxymethylcell (Cepastat) 1 JHOAN Q2HPRN PRN POClotrimazole (Clotrimazole) 0 DIRECTED TOPNasal Lubricant (Saline Nasal [place]) 0 Q3HPRN PRN NASALClonidine (Catapres) 0.1 MG [...] rce(s) Supporting Document(s) ID Date Data Source [id number] 03/28/2020 12:37:00 PM EDT [address] HEALTH PROGRESS NOTEPATIENT NAME: YARELI HATCH PHYSICIAN: BOGDAN MACIAS MDAUTHOR: Colleen SMITH,DhruvADM. DATE: 02/15/20 MR#: [id number] NOTE DATE: 03/28/20 RM#: 318EVALUATION TIME: 1238 is 19-year-old female, currently single, well lives in community health, past psych history of bipolar disorderCC/Hx [...] (Clotrimazole) 0 DIRECTED TOPNasal Lubricant (Saline Nasal [place]) 0 Q3HPRN PRN NASALClonidine (Catapres) 0.1 MG [...] rce(s) Supporting Document(s) ID Date Data Source [id number] 03/27/2020 01:16:00 PM EDT [facility] [address] HEALTH PROGRESS NOTEPATIENT NAME: YARELI HATCH PHYSICIAN: BOGDAN MACIAS MDAUTHOR: Colleen SMITH,DhruvADM. DATE: 02/15/20 MR#: [id number] NOTE DATE: 03/27/20 RM#: 318EVALUATION TIME: 1318 [...] (Clotrimazole) 0 DIRECTED TOPNasal Lubricant (Saline Nasal [place]) 0 Q3HPRN PRN NASALClonidine (Catapres) 0.1 MG [...] rce(s) Supporting Document(s) ID Date Data Source [id number] 03/26/2020 02:18:00 PM EDT [place] [id number] HEALTH PROGRESS NOTEPATIENT NAME: YARELI HATCH PHYSICIAN: BOGDAN MACIAS MDAUTHOR: Colleen SMITH,DhruvADM. DATE: 02/15/20 MR#: [id number] NOTE DATE: 03/26/20 RM#: 318EVALUATION TIME: 1419 [...] (Clotrimazole) 0 DIRECTED TOPNasal Lubricant (Saline Nasal [place]) 0 Q3HPRN PRN NASALClonidine (Catapres) 0.1 MG [...] rce(s) Supporting Document(s) ID Date Data Source [id number] 03/25/2020 01:50:00 PM EDT [address] HEALTH PROGRESS NOTEPATIENT NAME: YARELI HATCH [facility] SYSTEMSALVAD[facility] PHYSICIAN: BOGDAN MACIAS MDAUTHOR: Colleen SMITH,DhruvADM. DATE: 02/15/20 MR#: [id number] NOTE DATE: 03/25/20 RM#: 318EVALUATION TIME: 1352 is 19-year-old female, currently single, well lives in community health, past psych history of bipolar disorderCC/Hx Present IllnessThe patient was referred for evaluation because pt having suicidal ideations.Events Since Last EntryPatient reporting feeling somewhat okay, expressing that she has been feelingfine and she is open to continue taking her medication as well. Still waitingfor safe discharge plan as well, [facility] is involved, denied having any medicationside [...] (Clotrimazole) 0 DIRECTED TOPNasal Lubricant (Saline Nasal [place]) 0 Q3HPRN PRN NASALClonidine (Catapres) 0.1 MG [...] Ex-drinker (finding) comp leted Ex- drinker (finding) [facility] Tobacco use and exposure 04/05/2021 12:00:00 AM EDT Never used co mpleted Never used [facility] Cigarette pack-years 04/05/2021 12:00:00 AM EDT UNK completed [facility] Cigarettes smoked current (pack per day) - Reported 04/05/20 21 12:00:00 AM EDT UNK completed [facility] Smoking 04/05/2021 12:00:00 AM EDT Current every day smoker co mpleted Current every day smoker [facility] Smoking 03/20/2021 12:00:00 AM EDT Unknown if ever smoked comp leted Unknown if ever smoked [facility] Alcohol intake 03/13/2021 12:00:00 AM EDT Ex-drinker (finding) comp leted Ex- drinker (finding) [facility] Tobacco use and exposure 03/13/2021 12:00:00 AM EDT Never used co mpleted Never used [facility] Cigarettes smoked current (pack per day) - Reported 03/13/20 12:00:00 AM EDT UNK completed [facility] Smoking 03/13/2021 12:00:00 AM EDT Current every day smoker co mpleted Current every day smoker [facility] Alcohol intake 02/21/2021 12:00:00 AM EDT Ex-drinker (finding) comp leted Ex- drinker (finding) [facility] 12/22/2020 12:00:00 AM EDT Cigarette Smoker completed Cig arette Smoker [facility] 12/22/2020 12:00:00 AM EDT Current every day smoker co mpleted Current every day smoker [facility] Smoking 11/13/2020 12:00:00 AM EDT Unknown if ever smoked comp leted Unknown if ever smoked [facility] ([facility]) Smoking 08/27/2020 12:00:00 AM EST Unknown if ever smoked comp leted Unknown if ever smoked [facility] ([facility]) Smoking 08/23/2020 12:00:00 AM EST Unknown if ever smoked comp leted Unknown if ever smoked [facility] ([facility]) Smoking 06/24/2020 12:00:00 AM EST Unknown if ever smoked comp leted Unknown if ever smoked [facility] ([facility]) Vital Signs ID Date Data Source UNK Name Value Range Interpretation Code Description Data Source(s) Respiratory rate 16 /min 16 /min [facility] Oxygen saturation in Arterial blood by Pulse oximetry 95 % 95 % [facility] Systolic blood pressure 129 mm[Hg] 129 mm[Hg] [facility] Diastolic blood pressure 90 mm[Hg] 90 mm[Hg] [facility] Heart rate 72 /min 72 /min [facility] Body temperature 36.89 Patricia 36.89 Patricia [facility] Body weight 137.077 kg 137.077 kg [facility] Body mass index (BMI) [Ratio] 48.78 kg/m2 48.78 kg/m2 [facility] Body height 167.6 cm 167.6 cm [facility] ID Date Data Source [id number] 05/19/2021 01:44:00 PM EST [facility] Name Value Range Interpretation Code Description Data Source(s) WEIGHT 104 kilos 104 kilos [facility] al HEIGHT 167.64 centimeters 167.64 centimeter [facility] ID Date Data Source [id number] 05/14/2021 05:46:00 PM EDT [facility] Name Value Range Interpretation Code Description Data Source(s) WEIGHT 104.545 kilos 104.545 [facility] HEIGHT 167.64 centimeters 167.64 centimeter [facility] ID Date Data Source [id number] 05/05/2021 08:15:00 PM EDT [facility] spital Name Value Range Interpretation Code Description Data Source(s) Weight Measurement Method 8 8 [facility] Weight 3680 3680 [facility] pital Temperature Source 7 7 [facility] Temperature 99.1 99.1 [facility] spital Respiratory Effort 1 1 [facility] Respiratory Rate 18 18 [facility] Pulse Assessment Method 4 4 [facility] Pulse Rate 66 66 [facility] 128/55 128/55 [facility] ID Date Data Source [id number] 05/14/2021 12:07:00 PM EDT [facility] Name Value Range Interpretation Code Description Data Source(s) WEIGHT 104 kilos 104 kilos [facility] al HEIGHT 167.64 centimeters 167.64 centimeter [facility] ID Date Data Source [id number] 05/01/2021 09:46:00 AM EDT [facility] spital Name Value Range Interpretation Code Description Data Source(s) Weight Measurement Method 8 8 [facility] Weight 3668.492 3668.492 [facility] pital Temperature 98.4 98.4 [facility] spital Respiratory Rate 16 16 [facility] Pulse Assessment Method 4 4 G [facility] Pulse Rate 68 68 [facility] pital Height 66 66 [facility] pital Blood Pressure 113/59 113/59 [facility] Weight Measurement Method 8 8 [facility] Weight 3668.492 3668.492 [facility] pital Height 66 66 [facility] pital ID Date Data Source [id number] 05/01/2021 01:52:00 AM EDT [facility] spital Name Value Range Interpretation Code Description Data Source(s) Weight Measurement Method 8 8 [facility] Weight 3679.991 3679.991 [facility] pital Respiratory Effort 1 1 [facility] Respiratory Rate 18 18 [facility] Height 66 66 [facility] pital Weight Measurement Method 8 8 [facility] Weight 3679.991 3679.991 [facility] pital Respiratory Effort 1 1 [facility] Respiratory Rate 18 18 [facility] Height 66 66 [facility] pital ID Date Data Source [id number] 05/07/2021 10:54:00 AM EDT [facility] spital Name Value Range Interpretation Code Description Data Source(s) Weight Measurement Method 8 8 [facility] Weight 3680 3680 [facility] pital Temperature Source 7 7 [facility] Temperature 98.8 98.8 [facility] spital Respiratory Effort 1 1 [facility] Respiratory Rate 18 18 [facility] Pulse Assessment Method 4 4 [facility] Pulse Rate 103 103 [facility] pital Height 66 66 [facility] pital Blood Pressure 162/60 162/60 [facility] ID Date Data Source [id number] 05/13/2021 02:42:00 PM EDT [facility] Name Value Range Interpretation Code Description Data Source(s) WEIGHT 150 kilos 150 kilos [facility] HEIGHT 172.72 centimeters 172.72 centimeter s [facility] ID Date Data Source [id number] 05/13/2021 02:02:00 PM [facility]T [facility] Name Value Range Interpretation Code Description Data Source(s) WEIGHT 136.6 kilos 136.6 kilos [facility] ital HEIGHT 167.64 centimeters 167.64 centimeter [facility] WEIGHT 303 kilos 303 kilos [facility]IGHT 167.64 centimeters 167.64 centimeter [facility] ID Date Data Source [id number] 04/24/2021 11:09:00 AM EDT [facility] spital Name Value Range Interpretation Code Description Data Source(s) Weight Measurement Method 8 8 [facility] Weight 3680 3680 [facility] pital Temperature Source 7 7 [facility] Temperature 98.0 98.0 [facility] spital Respiratory Effort 1 1 [facility] Respiratory Rate 18 18 [facility] Pulse Assessment Method 4 4 G [facility] Pulse Rate 88 88 [facility] pital Height 66 66 [facility] pital Blood Pressure 147/57 147/57 [facility] ID Date Data Source [id number] 04/28/2021 04:53:00 PM EDT [facility] spital Name Value Range Interpretation Code Description Data Source(s) Weight Measurement Method 8 8 [facility] Weight 3679.074 3679.074 [facility] pital Temperature Source 7 7 [facility] Temperature 98.2 98.2 [facility] spital Respiratory Effort 1 1 [facility] Respiratory Rate 16 16 [facility] Pulse Assessment Method 4 4 G [facility] Pulse Rate 80 80 [facility] pital Height 66 66 [facility] pital Blood Pressure 132/72 132/72 [facility] ID Date Data Source [id number] 04/16/2021 12:24:00 PM EDT [facility] spital Name Value Range Interpretation Code Description Data Source(s) Weight Measurement Method 8 8 [facility] Weight 3680 3680 [facility] pital Temperature Source 7 7 [facility] Temperature 98.1 98.1 [place] [facility] Respiratory Effort 1 1 [facility] Respiratory Rate 16 16 [facility] Pulse Assessment Method 4 4 [facility] Pulse Rate 98 98 [facility] pital Height 66 66 [facility] pital Blood Pressure 111/58 111/58 [facility] Weight Measurement Method 8 8 [facility] Weight 3680 3680 [facility] pital Temperature Source 7 7 [facility] Temperature 98.1 98.1 [facility] spital Respiratory Effort 1 1 [facility] Respiratory Rate 16 16 [facility] Pulse Assessment Method 4 4 G [facility] Pulse Rate 98 98 [facility] pital Height 66 66 [facility] pital Blood Pressure 111/58 111/58 [facility] ID Date Data Source [id number] 04/19/2021 01:44:00 AM EDT [facility] Name Value Range Interpretation Code Description Data Source(s) WEIGHT 105 kilos 105 kilos [facility] al HEIGHT 167.64 centimeters 167.64 centimeter [facility] ID Date Data Source [id number] 04/19/2021 01:44:00 AM EDT [facility] Name Value Range Interpretation Code Description Data Source(s) WEIGHT 131 kilos 131 kilos [facility] al HEIGHT 170.18 centimeters 170.18 centimeter [facility] ID Date Data Source [id number] 05/11/2021 06:14:00 PM EDT [facility] Name Value Range Interpretation Code Description Data Source(s) Weight Measurement Method 8 8 [facility] Weight 3520 3520 [facility] pital Temperature Source 7 7 [facility] Temperature 97.4 97.4 [place] [facility] Respiratory Effort 1 1 [facility] Respiratory Rate 18 18 [facility] Pulse Assessment Method 4 4 [facility] Pulse Rate 94 94 [facility] pital Height 66 66 [facility] pital Blood Pressure 136/75 136/75 [facility] Weight Measurement Method 8 8 [facility] Weight 3520 3520 [facility] pital Temperature Source 1 1 [facility] Temperature 98.5 98.5 [place] [facility] Respiratory Effort 1 1 [facility] Respiratory Rate 16 16 [facility] Pulse Assessment Method 4 4 [facility] [facility] Pulse Rate 86 86 [facility] pital Height 66 66 [facility] pital Blood Pressure 131/98 131/98 [facility] Weight Measurement Method 8 8 [facility] Weight 3520 3520 [facility] pital Temperature Source 1 1 [facility] Temperature 98.5 98.5 [facility] Respiratory Effort 1 1 [facility] Respiratory Rate 18 18 [facility] Pulse Assessment Method 4 4 G [facility] Pulse Rate 108 108 [facility] pital Height 66 66 [facility] pital Blood Pressure 131/92 131/92 [facility] ID Date Data Source [id number] 05/09/2021 04:32:00 PM EDT [facility] Name Value Range Interpretation Code Description Data Source(s) Weight Measurement Method 8 8 [facility] Weight 3680 3680 [facility] pital Temperature Source 7 7 [facility] Temperature 99.0 99.0 [facility] Respiratory Effort 1 1 [facility] Respiratory Rate 18 18 [facility] Pulse Assessment Method 4 4 G [facility] Pulse Rate 102 102 [facility] pital Height 66 66 [facility] pital Blood Pressure 141/79 141/79 [facility] Weight Measurement Method 8 8 [facility] Weight 3680 3680 [facility] pital Temperature Source 7 7 [facility] Temperature 98 98 [facility] Respiratory Effort 1 1 [facility] Respiratory Rate 16 16 [facility] Pulse Assessment Method 4 4 G [facility] Pulse Rate 122 122 [facility] pital Height 66 66 [facility] pital Blood Pressure 149/85 149/85 [facility] ID Date Data Source [id number] 03/25/2021 07:15:08 AM EDT [facility] Name Value Range Interpretation Code Description Data Source(s) TRANSFER FROM [facility] ID Date Data Source [id number] 05/09/2021 04:49:00 PM EDT [facility] Name Value Range Interpretation Code Description Data Source(s) Weight Measurement Method 8 8 [facility] Weight 3680 3680 [facility] pital Temperature Source 7 7 [facility] Temperature 97.3 97.3 [facility] Respiratory Rate 18 18 [facility] Pulse Rate 106 106 [facility] pital Height 66 66 [facility] pital Blood Pressure 122/83 122/83 [facility] Weight Measurement Method 8 8 [facility] Weight 3680 3680 [facility] pital Temperature Source 7 7 [facility] Temperature 97.3 97.3 [facility] Res[facility] Rate 18 18 [facility] Pulse Rate 106 106 [facility] pital Height 66 66 [facility] pital Blood Pressure 122/83 122/83 [facility] ID Date Data Source [id number] 05/10/2021 06:49:00 PM EDT [facility] Name Value Range Interpretation Code Description Data Source(s) Weight Measurement Method 8 8 [facility] Weight 3680 3680 [facility] pital Temperature Source 7 7 [facility] Temperature 99.8 99.8 [facility] Respiratory Effort 1 1 [facility] Respiratory Rate 18 18 [facility] Pulse Rate 117 117 [facility] 66 [facility] Blood Pressure 142/72 142/72 [facility] Weight Measurement Method 8 8 [facility] Weight 3680 3680 [facility] pital Temperature Source 7 7 [facility] Temperature 99.8 99.8 [facility] Respiratory Effort 1 1 [facility] Respiratory Rate 18 18 [facility] Pulse Rate 117 117 [facility] Height 66 66 [facility] pital Blood Pressure 142/72 142/72 [facility] ID Date Data Source [id number] 05/09/2021 02:14:00 PM EDT [facility] Name Value Range Interpretation Code Description Data Source(s) Weight Measurement Method 8 8 [facility] Weight 3680 3680 [facility] pital Temperature Source 7 7 [facility] Temperature 97.3 97.3 [facility] spital Respiratory Rate 16 16 [facility] Pulse Assessment Method 4 4 [facility] Pulse Rate 68 68 [facility] pital Height 66 66 [facility] pital Blood Pressure 113/59 113/59 [facility] Weight Measurement Method 8 8 [facility] Weight 3680 3680 [facility] pital Temperature Source 7 7 [facility] Temperature 98.7 98.7 [facility] spital Respiratory Rate 20 20 [facility] Pulse Rate 110 110 [facility] pital Height 66 66 [facility] pital Blood Pressure 135/70 135/70 [facility] ID Date Data Source [id number] 05/10/2021 09:58:00 AM EDT [facility] Name Value Range Interpretation Code Description Data Source(s) Weight Measurement Method 8 8 [facility] Weight 3680 3680 [facility] pital Temperature Source 7 7 [facility] Temperature 98.4 98.4 [facility] Res[facility] Effort 1 1 [facility] Respiratory Rate 16 16 [facility] Pulse Assessment Method 4 4 [facility] Pulse Rate 78 78 [facility] pital Height 66 66 [facility] pital Blood Pressure 129/88 129/88 [facility] Weight Measurement Method 8 8 [facility] Weight 8113.011 8113.011 [facility] pital Temperature Source 7 7 [facility] Temperature 98.4 98.4 [facility] spital Respiratory Effort 1 1 [facility] Respiratory Rate 18 18 [facility] Pulse Assessment Method 4 4 [facility] Pulse [facility] 109 109 [facility] Height 66 66 [facility] Blood Pressure 145/74 145/74 [facility] ID Date Data Source [id number] 02/26/2021 08:59:13 AM EDT [facility] Name Value Range Interpretation Code Description Data Source(s) TRANSFER FROM [facility] ID Date Data Source [id number] 05/09/2021 08:17:00 PM EDT [facility] Name Value Range Interpretation Code Description Data Source(s) Weight Measurement Method 8 8 [facility] Weight 3680 3680 [facility] pital Temperature Source 7 7 [facility] Temperature 98.3 98.3 [facility] spital Respiratory Effort 1 1 [facility] Respiratory Rate 20 20 [facility] Pulse Assessment Method 4 4 [facility] Pulse Rate 108 108 [facility] pital Height 66 66 [facility] pital Blood Pressure 124/58 124/58 [facility] Weight Measurement Method 8 8 [facility] Weight 3680 3680 [facility] pital Temperature Source 7 7 [facility] Temperature 96.7 96.7 [facility] spital Respiratory Effort 1 1 [facility] Respiratory Rate 18 18 [facility] Pulse Assessment Method 4 4 [facility] Pulse Rate 94 94 [facility] pital Height 66 66 [facility] pital Blood Pressure 126/81 126/81 [facility] Weight Measurement Method 8 8 [facility] Weight 3680 3680 [facility] pital Temperature Source 7 7 [facility] Temperature 96.7 96.7 [facility] spital Respiratory Effort 1 1 [facility] Respiratory Rate 18 18 [facility] Pulse Assessment Method 4 4 G [facility] Pulse Rate 94 94 [facility] pital Height 66 66 [facility] pital Blood Pressure 126/81 126/81 [facility] ID Date Data Source [id number] 04/19/2021 01:44:00 AM EDT [facility] Name Value Range Interpretation Code Description Data Source(s) WEIGHT 136.6 kilos 136.6 kilos [facility] HEIGHT 170.18 centimeters 170.18 centimeter s [facility] WEIGHT 137.7 kilos 137.7 kilos [facility] HEIGHT 170.18 centimeters 170.18 centimeter s [facility] WEIGHT 137.2 kilos 137.2 kilos [facility] HEIGHT 170.18 centimeters 170.18 centimeter s [facility] WEIGHT 137.2 kilos 137.2 kilos [facility] HEIGHT 152.4 centimeters 152.4 centimeters [facility] WEIGHT 137.2 kilos 137.2 kilos [facility] HEIGHT 170.18 centimeters 170.18 centimeter s [facility] WEIGHT 134.5 kilos 134.5 kilos [facility] HEIGHT 170.18 centimeters 170.18 centimeter s [facility] ID Date Data Source [id number] 04/19/2021 01:44:00 AM EDT [facility] Name Value Range Interpretation Code Description Data Source(s) WEIGHT 136.3 kilos 136.3 kilos [facility] HEIGHT 152.4 centimeters 152.4 centimeters [facility] WEIGHT 136.3 kilos 136.3 kilos [facility] HEIGHT 170.18 centimeters 170.18 centimeter s [facility] WEIGHT 136.8 kilos 136.8 kilos [facility] HEIGHT 170.18 centimeters 170.18 centimeter s [facility] WEIGHT 131.5 kilos 131.5 kilos [facility] HEIGHT 170.18 centimeters 170.18 centimeter s [facility] WEIGHT 128.8 kilos 128.8 kilos [facility] HEIGHT 170.18 centimeters 170.18 centimeter s [facility] WEIGHT 126.8 kilos 126.8 kilos [facility] HEIGHT 170.18 centimeters 170.18 centimeter s [facility] WEIGHT 124 kilos 124 kilos [facility] HEIGHT 170.18 centimeters 170.18 centimeter s [facility] ID Date Data Source [id number] 10/29/2020 09:38:25 PM EDT [facility] Name Value Range Interpretation Code Description Data Source(s) PREFERRED NAME Romel Urena [facility]SFER FROM [facility] ID Date Data Source [id number] 04/19/2021 01:44:00 AM EDT [facility] Name Value Range Interpretation Code Description Data Source(s) WEIGHT 124 kilos 124 kilos [facility] HEIGHT 167.64 centimeters 167.64 centimeter s [facility] ID Date Data Source [id number] 07/18/2020 09:56:40 PM [facility] Name Value Range Interpretation Code Description Data Source(s) PREFERRED NAME Romel Urena [facility] Hospital TRANSFER FROM [facility] ID Date Data Source [id number] 04/19/2021 01:43:00 AM EDT [facility] Name Value Range Interpretation Code Description Data Source(s) WEIGHT 122.8 kilos 122.8 kilos [facility] HEIGHT 167.64 centimeters 167.64 centimeter s [facility] WEIGHT 100 kilos 100 kilos [facility] HEIGHT 167.64 centimeters 167.64 centimeter s [facility] ID Date Data Source [id number] 04/19/2021 01:43:00 AM EDT [facility] Name Value Range Interpretation Code Description Data Source(s) WEIGHT 124.2 kilos 124.2 kilos [facility] HEIGHT 167.64 centimeters 167.64 centimeter s [facility] WEIGHT 123.4 kilos 123.4 kilos [facility] HEIGHT 167.64 centimeters 167.64 centimeter s [facility] WEIGHT 123.9 kilos 123.9 kilos [facility] HEIGHT 167.64 centimeters 167.64 centimeter s [facility] WEIGHT 123.9 kilos 123.9 kilos [facility] HEIGHT 152.4 centimeters 152.4 centimeters [facility] WEIGHT 119.6 kilos 119.6 kilos [facility] HEIGHT 167.64 centimeters 167.64 centimeter s [facility] WEIGHT 118.2 kilos 118.2 kilos [facility] HEIGHT 167.64 centimeters 167.64 centimeter s [facility] WEIGHT 112.6 kilos 112.6 kilos [facility] HEIGHT 167.64 centimeters 167.64 centimeter s [facility] WEIGHT 100 kilos 100 kilos [facility] HEIGHT 167.64 centimeters 167.64 centimeter [facility] ID Date Data Source [id number] 04/19/2021 01:43:00 AM EDT [facility] Name Value Range Interpretation Code Description Data Source(s) WEIGHT 100 kilos [facility] kilos [facility] HEIGHT 167.64 centimeters 167.64 centimeter [facility] ID Date Data Source [id number] 04/19/2021 01:43:00 AM EDT [facility] Name Value Range Interpretation Code Description Data Source(s) WEIGHT 110 kilos 110 kilos [facility] HEIGHT 167.64 centimeters 167.64 centimeter [facility] WEIGHT 100 kilos 100 kilos [facility] HEIGHT 167.64 centimeters 167.64 centimeter [facility] ID Date Data Source [id number] 04/19/2021 01:43:00 AM EDT [facility] Name Value Range Interpretation Code Description Data Source(s) WEIGHT 104.4 kilos 104.4 kilos [facility] HEIGHT 152.4 centimeters 152.4 centimeters [facility] WEIGHT 100 kilos 100 kilos [facility] HEIGHT 167.64 centimeters 167.64 centimeter [facility] Patient Treatment Plan of Care Planned Activity Planned Date Details Description Data Source (s) Sertraline 50 MG Oral Tablet 04/07/2021 12:00:00 AM [facility] Prazosin 1 MG Oral Capsule 04/05/2021 10:00:00 PM [facility] Ondansetron 4 MG Disintegrating Oral Tablet 04/05/2021 06:25:36 AM [facility] Magnesium Hydroxide 80 MG/ML Oral Suspension 04/05/2021 06:25:35 AM [facility] Aluminum Hydroxide 40 MG/ML / Magnesium Hydroxide 40 MG/ML / Simethicone 4 MG/ML Oral Suspension [facility]/05[facility] Oral Tablet 04/05/2021 06:25:23 AM [facility] aripiprazole 10 MG Oral Tablet 03/25/2021 12:00:00 AM [facility] Escitalopram 5 MG Oral Tablet 03/15/2021 12:00:00 AM [facility] Prazosin 2 MG Oral Capsule 03/15/2021 12:00:00 AM [facility] topiramate 25 MG Oral Tablet 02/26/2021 12:00:00 AM [facility] Sertraline 50 MG Oral Tablet 02/26/2021 12:00:00 AM [facility] Loratadine 10 MG Oral Tablet 02/26/2021 12:00:00 AM [facility] Lurasidone Hydrochloride 80 MG Oral Tablet 02/26/2021 12:00:00 AM [facility] topiramate 25 MG Oral Tablet 02/26/2021 12:00:00 AM [facility] Sertraline 50 MG Oral Tablet 02/26/2021 12:00:00 AM [facility] Lurasidone Hydrochloride 80 MG Oral Tablet 02/26/2021 12:00:00 AM [facility] Loratadine 10 MG Oral Tablet 02/26/2021 12:00:00 AM [facility] Propranolol Hydrochloride 10 MG Oral Tablet 02/25/2021 12:00:00 AM [facility] Prazosin 2 MG Oral Capsule 02/25/2021 12:00:00 AM [facility] montelukast 10 MG Oral Tablet 02/25/2021 12:00:00 AM [facility] Trazodone Hydrochloride 50 MG Oral Tablet 02/25/2021 12:00:00 AM [facility] Pravastatin Sodium 20 MG Oral Tablet 02/25/2021 12:00:00 AM [facility] Trazodone Hydrochloride 50 MG Oral Tablet 02/25/2021 12:00:00 AM [facility] Propranolol Hydrochloride 10 MG Oral Tablet 02/25/2021 12:00:00 AM [facility] Prazosin 2 MG Oral Capsule 02/25/2021 12:00:00 AM [facility] Pravastatin Sodium 20 MG Oral Tablet 02/25/2021 12:00:00 AM [facility] montelukast 10 MG Oral Tablet 02/25/2021 12:00:00 AM [facility] chlorproMAZINE (THORAZINE) 50 MG/2ML injection 02/22/2021 05:23:23 PM [facility] diphenhydrAMINE (BENADRYL) 50 MG/ML injection 02/22/2021 05:23:16 P M [facility] Hydroxyzine Hydrochloride 50 MG Oral Tablet 02/21/2021 08:18:25 PM [facility] Magnesium Hydroxide 80 MG/ML Oral Suspension 02/21/2021 08:18:18 PM [facility] 2 ML aripiprazole 200 MG/ML Prefilled Syringe [Abilify ] 06/18/2020 12:00:00 AM [facility]spital duloxetine 30 MG Delayed Release Oral Capsule 12/28/2019 12:00:00 A M [facility] Sertraline 50 MG Oral Tablet [facility] Propranolol Hydrochloride 10 MG Oral Tablet [facility] Prazosin [address] [facility] Ondansetron 4 MG Oral Tablet [facility] Citalopram 20 MG Oral Tablet [facility]
[2021-05-24 05:39] LABS: ACETAMINOPHEN LEVEL < 2.0 UG/ML (10.0-30.0); ALBUMIN 3.8 GM/DL (3.2-5.2); ALT/SGPT 58 U/L (12-78); BILIRUBIN,DIRECT 0.1 MG/DL (0.0-0.2); BILIRUBIN,TOTAL 0.3 MG/DL (0.2-1.0); BLOOD UREA NITROGEN 15 MG/DL (7-18); CARBON DIOXIDE LEVEL 26 MEQ/L (21-32); CHLORIDE LEVEL 107 MEQ/L (98-107); CPK CREATINE PHOSPHOKINASE 229 U/L (26-192); CREATININE FOR GFR 0.66 MG/DL (0.55-1.30); ETHYL ALCOHOL (ETHANOL) < 0.003 % (0.000-0.010); GLUCOSE, FASTING 100 MG/DL (70-100); HCG, SERUM QUALITATIVE NEGATIVE (NEGATIVE); POTASSIUM SERUM 4.2 MEQ/L (3.5-5.1); SALICYLATE LEVEL < 1.7 MG/DL (5.0-30.0); SODIUM LEVEL 140 MEQ/L (136-145); TOTAL PROTEIN 7.4 GM/DL (6.4-8.2)
[2021-05-24] MEDS ORDERED: CHARCOAL ACTIVATED LIQUID 25 GM/120 ML BTL PO ONE (05:55)
--- NOTE | 2021-05-24 07:18 | ECGEPIP ---
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
[2021-05-24] MEDS ORDERED: LEXA1TAB PO (11:07)
[2021-05-24] MEDS ORDERED: HOME MED LIST COMPLETE! XX SCH (13:15)
[2021-05-24] MEDS ORDERED: LORazepam 2 MG/ML VIAL IM ONE (14:30)
[2021-05-24] MEDS ORDERED: OLANZapine INTRAMUSCULAR 10MG VIAL IM ONE (14:30)
[2021-05-25] MEDS: MONTELUKAST 10 MG TAB PO SCH (08:54)
[2021-05-25] MEDS ORDERED: LORATADINE 10 MG TAB PO ONE (09:00)
[2021-05-25] MEDS ORDERED: ESCITALOPRAM OXALATE 10 MG TAB (LEXAPRO) PO ONE (09:00)
[2021-05-25] MEDS ORDERED: SERTRALINE HCL 50 MG TAB PO ONE (09:00)
[2021-05-25] MEDS ORDERED: OLANZapine ORAL DISINTEGRATING TAB 5MG PO ONE (11:35)
[2021-05-25] MEDS ORDERED: LORazepam 2 MG TAB PO ONE ×2 (11:35→16:25)
[2021-05-25] MEDS ORDERED: ARIPiprazole 10 MG TAB PO ONE (16:25)
[2021-05-25] MEDS ORDERED: ACETAMINOPHEN TAB 650MG DOSE (2X325MG) PO ONE (18:25)
[2021-05-25] MEDS ORDERED: HALOPERIDOL 5MG/ML VIAL (J1630 PER 1) As Ordered ONE (22:43)
[2021-05-25] MEDS ORDERED: LORazepam 2 MG/ML VIAL As Ordered ONE (22:44)
[2021-05-25] MEDS ORDERED: diphenhydrAMINE 50MG/ML VIAL (J1200) As Ordered ONE (22:44)
[2021-05-25] MEDS ORDERED: diphenhydrAMINE 50MG/ML VIAL (J1200) IM ONE (22:45)
[2021-05-25] MEDS ORDERED: LORazepam 2 MG/ML VIAL IM ONE (22:45)
[2021-05-25] MEDS ORDERED: HALOPERIDOL 5MG/ML VIAL (J1630 PER 1) IM ONE (22:45)
[2021-05-26] MEDS ORDERED: HALOPERIDOL 5MG/ML VIAL (J1630 PER 1) IM ONE (02:20)
[2021-05-26] MEDS ORDERED: diphenhydrAMINE 50MG/ML VIAL (J1200) IM ONE (02:20)
[2021-05-26] MEDS ORDERED: LORazepam 2 MG/ML VIAL IM ONE (02:20)
[2021-05-26] MEDS: MONTELUKAST 10 MG TAB PO SCH (09:00)
[2021-05-26] MEDS ORDERED: ESCITALOPRAM OXALATE 10 MG TAB (LEXAPRO) PO ONE (15:45)
[2021-05-26] MEDS ORDERED: SERTRALINE HCL 50 MG TAB PO ONE (15:45)
[2021-05-26] MEDS ORDERED: ARIPiprazole 10 MG TAB PO ONE (15:45)
[2021-05-27] MEDS ORDERED: PRAZOSIN 1 MG CAP PO ONE (02:25)
[2021-05-27] MEDS ORDERED: OLANZapine 5 MG TAB PO ONE (02:25)
[2021-05-27 02:34] VITALS: BP 127/58
[2021-05-27] MEDS: MONTELUKAST 10 MG TAB PO SCH (09:00)
[2021-05-27] MEDS: ESCITALOPRAM OXALATE 10 MG TAB (LEXAPRO) PO SCH (09:30)
[2021-05-27] MEDS: SERTRALINE HCL 50 MG TAB PO SCH (09:30)
[2021-05-27] MEDS ORDERED: ACETAMINOPHEN TAB 650MG DOSE (2X325MG) PO ONE ×2 (14:40→21:50)
--- NOTE | 2021-05-27 15:53 | MHIPNPDOC ---
[facility] Progress Note Progress Note DATE OF SERVICE: 05/27/21 Patient continues to meet criteria for involuntary mission, was previously seen by Dr. Bergman for evaluation context of reported overdose. Attempted to see the patient in the a.m. to assess if safe to return home as she is spent several days in the hospital, without placement and to be restarted on medications. 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 Patient has history of arrival multiple times to the ED in succession by self presentation due to reported overdoses of various means, initially reported suicidal ideations, usually becomes upset when not immediately placed and states she is no longer suicidal. Has a history of borderline personality disorder. Again was planning to see patient to assess for discharge as she stated she was not having suicidal thoughts to social work, but was later called by social work as patient was becoming agitated and thinking she needed help as opposed to discharge. Continue to search for placement, recommend restarting home medications. Vital Signs Vital Signs Date Time Temp Pulse Resp B/P (MAP) Pulse Ox O2 Delivery O2 Flow Rate FiO2 05/27/21 06:18 97.0 61 18 129/63 (85) 98 05/26/21 21:00 Room Air Current Medications Current Medications Medications (Trade) Dose Ordered Sig/Brielle Route PRN Reason Start Time Stop Time Status Last Admin Dose Admin Aripiprazole (AbiLIFY) 5 mg DAILY PO 05/27/21 09:30 Escitalopram Oxalate (Lexapro) 10 mg DAILY PO 05/27/21 09:30 Home Med (Home Med List Complete!) ASDIRECTED XX 05/24/21 13:15 05/24/21 13:18 DC Montelukast Sodium (Singulair) 10 mg QAM PO 05/25/21 09:00 05/26/21 09:00 Sertraline HCl (Zoloft) 50 mg DAILY PO 05/27/21 09:30 Allergies Coded Allergies: haloperidol (Verified Adverse Reaction, Intermediate, LOCKJAW, 05/24/21) Has required & received this med many time without EPS noted risperidone (Verified Adverse Reaction, Mild, PSORIASIS, 05/24/21) RUBY DEVI MD May 27, 2021 15:53
[2021-05-27] MEDS ORDERED: hydrOXYzine 50 MG TAB PO ONE (21:50)
[2021-05-28] MEDS: ESCITALOPRAM OXALATE 10 MG TAB (LEXAPRO) PO SCH ×2 (10:00→11:26)
[2021-05-28] MEDS: MONTELUKAST 10 MG TAB PO SCH ×2 (10:00→11:26)
[2021-05-28] MEDS: SERTRALINE HCL 50 MG TAB PO SCH ×2 (10:00→11:26)
[2021-05-28 14:23] LABS: RSV AMPLIFICATION NEGATIVE (NEGATIVE)
[2021-05-28] MEDS ORDERED: LORazepam 2 MG TAB PO STA (18:20)
[2021-05-28 19:05] VITALS: BP 125/57
== END 2021-05-28 19:17 | disposition short-term general hospital (02) ==
LOC: M ED 04:06
DX: R45.851 Suicidal ideations (principal); T39.392A Poisoning by other nonsteroidal anti-inflammatory drugs [NSAID], intentional self-harm, initial encounter; F60.3 Borderline personality disorder; F31.9 Bipolar disorder, unspecified; Z88.8 Allergy status to other drugs, medicaments and biological substances; Z79.899 Other long term (current) drug therapy
CPT/HCPCS: 80048; 80076; 80143; 80307; 82077; 82550; 84443; 84703; 85025; 87631; 93005; 93041; 94760; 96372; 99285; J1200; J1630; J2060

== ENCOUNTER 2021-06-05 23:09 | Emergency (ER) | payer OTHER ==
[~2021-06-05] VITALS: Ht 167.6 cm; Wt 104.5 kg
[~2021-06-05 23:09] MED LIST changes: -CITA10TA5; -CITA10TA5 PO; +CITA10TA7; +CITA10TA7 PO; -HALO5TA PO; +HALO5TAB33 PO; -LATU80TA PO; +LATU80TA2 PO; -MONT10TA10 PO; +MONT10TA97 PO
[2021-06-05] MEDS ORDERED: NS 1,000 ML IV ONE (23:35)
[2021-06-06 00:29] LABS: BASO % 0.3 % (0.0-1.0); EOS # 0.1 10^3/uL (0.0-0.5); EOS % 1.5 % (0.0-3.0); HEMATOCRIT 34.7 % (36.0-47.0); HEMOGLOBIN 11.3 g/dl (12.0-15.5); LYMPH # 1.9 10^3/uL (1.5-5.0); LYMPH % 31.1 % (24.0-44.0); MEAN CORPUSCULAR HEMOGLOBIN 29.3 pg (27.0-33.0); MEAN CORPUSCULAR HGB CONC 32.6 g/dl (32.0-36.5); MEAN CORPUSCULAR VOLUME 89.9 fl (80.0-96.0); MONO # 0.5 10^3/uL (0.0-0.8); MONO % 8.7 % (2.0-8.0); NEUTROPHILS # 3.6 10^3/uL (1.5-8.5); NEUTROPHILS % 58.1 % (36.0-66.0); PLATELET COUNT, AUTOMATED 210 10^3/uL (150-450); RED BLOOD COUNT 3.86 10^6/uL (4.00-5.40); WHITE BLOOD COUNT 6.2 10^3/uL (4.0-10.0)
[2021-06-06 01:03] LABS: ACETAMINOPHEN LEVEL < 2.0 UG/ML (10.0-30.0); ALBUMIN 3.4 GM/DL (3.2-5.2); ALT/SGPT 51 U/L (12-78); BILIRUBIN,DIRECT 0.1 MG/DL (0.0-0.2); BILIRUBIN,TOTAL 0.3 MG/DL (0.2-1.0); BLOOD UREA NITROGEN 16 MG/DL (7-18); CALCIUM LEVEL 8.8 MG/DL (8.5-10.1); CARBON DIOXIDE LEVEL 26 MEQ/L (21-32); CHLORIDE LEVEL 108 MEQ/L (98-107); CREATININE FOR GFR 0.72 MG/DL (0.55-1.30); ETHYL ALCOHOL (ETHANOL) < 0.003 % (0.000-0.010); GLUCOSE, FASTING 96 MG/DL (70-100); SALICYLATE LEVEL < 1.7 MG/DL (5.0-30.0); SODIUM LEVEL 139 MEQ/L (136-145)
[2021-06-06 01:08] LABS: AMPHETAMINES LEVEL URINE NEGATIVE (NEGATIVE); BARBITURATES URINE NEGATIVE (NEGATIVE); BENZODIAZEPINES URINE NEGATIVE (NEGATIVE); CANNABINOIDS URINE POSITIVE (NEGATIVE); COCAINE METABOLITE URINE NEGATIVE (NEGATIVE); METHADONE URINE NEGATIVE (NEGATIVE); OPIATES URINE NEGATIVE (NEGATIVE); PHENCYCLIDINE URINE NEGATIVE (NEGATIVE)
[2021-06-06 01:09] LABS: HCG, SERUM QUALITATIVE NEGATIVE (NEGATIVE)
[2021-06-06 01:12] LABS: ABG BASE EXCESS -0.3 (-2.0-2.0); ABG HCO3 23.4 MEQ/L (22.0-26.0); ABG O2 SATURATION 98.3 % (95.0-99.0); ABG PARTIAL PRESSURE CO2 35.1 mmHg (35.0-45.0); ABG STANDARD HCO3 24.3 MEQ/L (22.0-26.0); ABG TOTAL CO2 24.5 MEQ/L (22.0-29.0); ABG pH (ARTERIAL) 7.442 UNITS (7.350-7.450)
[2021-06-06] MEDS ORDERED: OLANZapine 5 MG TAB PO ONE (20:55)
[2021-06-06] MEDS ORDERED: PRAZOSIN 1 MG CAP PO ONE (20:55)
[2021-06-07] MEDS ORDERED: MED REC COMMENT (05:46)
[2021-06-07] MEDS ORDERED: HOME MED LIST COMPLETE! XX SCH (05:50)
[2021-06-07] MEDS ORDERED: ACETAMINOPHEN TAB 650MG DOSE (2X325MG) PO ONE (13:35)
[2021-06-07 14:31] LABS: RSV AMPLIFICATION NEGATIVE (NEGATIVE)
[2021-06-07 16:31] VITALS: BP 132/77
== END 2021-06-07 16:33 ==
LOC: M ED 23:09
DX: R45.851 Suicidal ideations (principal); T43.202A Poisoning by unspecified antidepressants, intentional self-harm, initial encounter; Z91.51 Personal history of suicidal behavior; F31.89 Other bipolar disorder; F60.3 Borderline personality disorder; Z76.5 Malingerer [conscious simulation]; Z79.899 Other long term (current) drug therapy; Z88.8 Allergy status to other drugs, medicaments and biological substances

== ENCOUNTER 2021-06-15 12:26 | Emergency (ER) | payer OTHER ==
[~2021-06-15] VITALS: Ht 167.6 cm; Wt 134.6 kg
[~2021-06-15 12:26] MED LIST changes: +CITA10TA5; +CITA10TA5 PO; -CITA10TA7; -CITA10TA7 PO; +HALO5TA PO; -HALO5TAB33 PO; +LATU80TA PO; -LATU80TA2 PO; +MED REC COMMENT; +MONT10TA10 PO; -MONT10TA97 PO
--- OUTSIDE RECORDS SUMMARY | 2021-06-15 12:32 | CCD | Summary of Care ---
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 - 06/07/2021 7:40 PM EST Psychiatric Treatment Plan Patient Yareli Hatch 2000 Admit Date 06/07/2021 Treatment Plan Treatment Plan (Active) Problem: Psych Acuity Scoring Dates: Start: 06/07/21 Goal: Acuity Scoring Dates: Start: 06/07/21 Description: Acuity Scoring for Psych Problem: Suicide Dates: Start: 06/07/21 Description: As evidenced by suicidal thoughts, suicidal plan, and intent to fo llow through with plan. Goal: Reduce or eliminate suicidal ideation Dates: Start: 06/07/21 Expected End: 06/14/21 Goal: Patient will comply with medication regimen Dates: Start: 06/07/21 Expected End: 06/14/21 Description: Patient will work with staff to learn medication education for ne w/unfamiliar medications. Intervention: Staff will offer medications as scheduled Frequency: Q Shift Dates: Start: 06/07/21 Description: Nurse on shift will document patient's acceptance and response to medications Intervention: Staff will identify the need for PRN medication Frequency: PRN Dates: Start: 06/07/21 Description: Nurse on shift will encourage patient to identify symptoms of incr eased agitation/irritability requiring medications Goal: Patient will verbalize 2 positive coping skills to help deal with negativ e thoughts and feelings Dates: Start: 06/07/21 Expected End: 06/14/21 Description: As evidenced by coping strategies, distraction techniques, relaxat ion techniques, socialization, and skill acquisition Intervention: Staff will provide 1:1 therapeutic communication and assess patie nts mood Frequency: Daily Dates: Start: 06/07/21 Description: RN, RT, or OT will monitor and record mood/behavior Intervention: Staff will encourage patient to attend groups Frequency: Daily Dates: Start: 06/07/21 Description: Patient should attend therapy group and nursing group Goal: Patient will complete a contract for safety Dates: Start: 06/07/21 Expected End: 06/14/21 Description: Patient will refrain from self-harm and approach staff if feeling unsafe Intervention: Staff will encourage patient to verbalize feelings Frequency: Q Shift Dates: Start: 06/07/21 Description: RN will meet with patient to assess patient's safety and engage pa tient in a verbal contract for safety Intervention: Staff will maintain a safe and therapeutic milieu Frequency: Daily Dates: Start: 06/07/21 Description: Frequent or routine checks to maintain safety and monitor behavior Treatment Plan (Resolved) There are no resolved problems. Treatment Team: Attending Provider: Magy Diop MD; Registered Nurse: Aileen Genao RN; Registered Nurse: Darlene Burnham RN I have reviewed and agree that the above treatment plan is appropriate for Guille Hatch. Signature: Aileen Genao Date: June 07, 2021 7:40 PM documented in this encounter Plan of Treatment Health Maintenance Due Date Last Done Comments Pneumococcal Vaccine: 2006 Pediatrics (0 to 5 Years) and At-Risk Patients (6 to 64 Years) (1 of 2 - PPSV23) HPV Vaccines (1 - 2-dose 10/07/2011 series) HIV Screening 2013 Chlamydia Screening 2016 COVID-19 Vaccine (2 - 01/07/2021 11/12/2020 Booster for Sophia series) Influenza Vaccine 04/11/2021 09/17/2017, 03/30/2007, 06/04/2006, Additional [...] filedocumented in this encounter Visit Diagnoses Diagnosis Mood disorder - Primary Unspecified episodic mood disorder documented in this encounter Administered Medications Action Date Dose Rate Site Medication Order MAR Action 06/09/2021 5:41 AM EST 650 mg acetaminophen (TYLENOL) tablet 650 mg Given 650 mg, Oral, Every 6 hours PRN, Mild Pain (Pain Scale Score 1-3), Starting o n 06/07/21 at 1859, For 30 days, Maximum daily dose of acetaminophen is 3,000 mg from all sources in 24 hours. 650 mg Given 06/08/2021 5:40 PM EST 650 mg Given 06/08/2021 9:07 AM EST hydrOXYzine (ATARAX) tablet 50 mg 50 mg, Oral, Every 6 hours PRN, Anxiety, Starting on 06/07/21 at 1859, For 30 days 06/09/2021 7:54 AM EST 10 mg OLANZapine zydis (ZYPREXA) Given disintegrating tablet 10 mg 10 mg, Oral, Every 8 hours PRN, agitation, Starting on 06/08/21 at 1200, For 30 days Action Date Dose Rate Site Medication Order MAR Action chlorproMAZINE (THORAZINE) 50 MG/2ML injection Starting on 06/08/21 at 0849, For 1 dose, Created by cabinet override 06/08/2021 9:23 AM EST 100 mg chlorproMAZINE (THORAZINE) injection 100 Given mg 100 mg, Intramuscular, Once, On 06/08/21 at 0930, For 1 dose diphenhydrAMINE (BENADRYL) 50 MG/ML injection Starting on 06/08/21 at 0850, For 1 dose, Created by cabinet override 06/08/2021 9:24 AM EST 50 mg diphenhydrAMINE (BENADRYL) injection 50 Given mg 50 mg, Intramuscular, Once, On 06/08/21 at 0930, For 1 dose documented in this encounter Active and Recently Administered Medications Times are shown in EST. 06/08/2021 06/09/2021 Medication Order 06/07/2021 0901 (Not Given - Provider: Aileen perez RN - Reason: Patient/family refused) 0813 (Not Given - Provider: Mildred Armando RN - Reason: Patient/family refused - Comment: pt stated that [facility] took her off this meds when she was here last time.) ARIPiprazole (ABILIFY) tablet 5 mg 5 mg, Oral, Daily Standard, First dose on 06/08/21 at 0900, For 30 days 0923 (Given - Provider: Aileen lemons RN) chlorproMAZINE (THORAZINE) injection 10 0 mg (COMPLETED) 100 mg, Intramuscular, Once, On 06/08/21 at 0930, For 1 dose 0924 (Given - Provider: Aileen lemons RN) diphenhydrAMINE (BENADRYL) injection 50 mg (COMPLETED) 50 mg, Intramuscular, Once, On 06/08/21 at 0930, For 1 dose 0901 (Not Given - Provider: Aileen perez RN - Reason: Patient/family refused) 0815 (Not Given - Provider: Mildred Armando RN - Reason: Patient/family refused) loratadine (CLARITIN) tablet 10 mg 10 mg, Oral, Daily Standard, First dos e on 06/08/21 at 0900, For 30 days 2310 (Not Given - Provider: Gregg south RN - Reason: Patient sedated/sleeping) 2199 (Due) montelukast (SINGULAIR) tablet 10 mg 2018 (Not Given - 10 mg, Oral, Nightly, First dose on Sat Provider: Lillie Patino 06/07/21 at 2200, For 30 days JOSE LUIS Burnham - Reason: Patient/family refused) 231 (Not Given - Provider: Gregg south, RN - Reason: Patient sedated/sleeping) 2199 (Due) OLANZapine (ZYPREXA) tablet 5 mg 2019 (Not Given - 5 mg, Oral, Nightly, First dose on Sat Provider: Luz Marina Patino 06/07/21 at 2200, For 30 days JOSE LUIS Burnham - Reason: Patient/family refused) 2309 (Not Given - Provider: Gregg south RN - Reason: Patient sedated/sleeping) 2199 (Due) prazosin (MINIPRESS) capsule 2 mg 2019 (Not Given - 2 mg, Oral, Nightly, First dose on Sat Provider: Luz Marina Patino 06/07/21 at 2200, For 30 days, Check JOSE LUIS Burnham - Re ason: vital signs before administering Patient/family refused) 0901 (Not Given - Provider: Aileen perez RN - Reason: Patient/family refused) 0814 (Not Given - Provider: Mildred Armando RN - Reason: Patient/family refused - Comment: pt stated that [facility] took her off this meds when she was here last time.) sertraline (ZOLOFT) tablet 50 mg 50 mg, Oral, Daily Standard, First dos e on 06/08/21 at 0900, For 30 days 06/08/2021 06/09/2021 Medication Order 06/07/2021 0907 (Given - Provider: Aileen lemons RN)1740 (Given - Provider: iAleen Genao RN) 0541 (Given - Provider: Gregg Lackey RN) acetaminophen (TYLENOL) tablet 650 mg 2138 (Given - 650 mg, Oral, Every 6 hours PRN, Mild Provider: Lillie Patino Pain (Pain Scale Score 1-3), Starting on JOSE LUIS Burnham) 06/07/21 at 1859, For 30 days, Maximum daily dose of acetaminophen is 3,000 mg from all sources in 24 hours. hydrOXYzine (ATARAX) tablet 50 mg 50 mg, Oral, Every 6 hours PRN, Anxiety, Starting on 06/07/21 at 1859, For 30 days 0754 (Given - Provider: Mildred Armando RN ) OLANZapine zydis (ZYPREXA) disintegrating tablet 10 mg 10 mg, Oral, Every 8 hours PRN, agitation, Starting on 06/08/21 at 1200, For 30 days documented in this encounter Care Teams Start Date End Date Field Representative Relationship Specialty 02/25/21 Gilberto Castilol MD PCP - [address] [address] documented as of this encounter
--- OUTSIDE RECORDS SUMMARY | 2021-06-15 12:32 | CCD ---
Author Author Yareli Giles Organization Unknown Address [address] [place] [address] Phone Care Team Providers Care [employer] Teacher Name Role Phone Santiago Giles PCP Allergies, Adverse Reactions, Alerts Concept Allergy Name Reaction Severity Onset Date Status Documentation Date Phone Number Npid Taxonomy Code Taxonomy Desc Author Last Name Author Kassie rst Name Concept Type 174741 Risperdal unspecified Active 03/03/2019 RXNORM Problem List Concept Problem Description Status Start Date Created Date Resolv ed Date Snomed Code F60.3 Borderline Personality Disorder Active 06/12/20 21 Medications Rx Norm Medication Route Route Concept Start Date Stop Date Dosage Aldair quency Duration Formula Strength Dosage Form Dosage Form Code Dosage Description Medication Id Account Npid Author First Name Author Last Name Taxonomy Code Taxonomy Desc Phone Number [id number] Celexa by mouth [id number] 10/02/2019 once a day 40 mg tablet [id number] Tammie Ketn [id number] Psychiatric/Mental Health [id number] Social History Social History Element Description Concept Effective Date Smoking Status Unknown if ever smoked [id number] Immunizations No Data in Section Vital Signs No Data in Section Procedures Date Concept Id Description Targeted Site Concept Targeted Site Concept Type 06/12/2021 18997-52 Telemed Diagnostic Eval C PT Patient has no history of implantable de vices Encounters Encounter Start Date End Date Encounter Type Description Diagnosis Di agnosis Desc Location Author First Name Author Last Name Npid Taxonomy Cod e Taxonomy Desc Phone Number Location Addr1 Location Addr2 Location [facility] Location [facility] Location Zip [id number] 06/12/2021 06/12/2021 58451-04 Telemed Diagnostic Eval F60. 3 Borderline personality disorder [facility] Chan bui [phone] [id number] Psychiatry [phone] [address] [facility] [address] Plan of Treatment No Data in Section Lab Results No Data in Section Instructions No Data in Section Functional Cognitive Status No Data in Section Insurance Providers Insurance Id Policy Effective Date Policy Thru Date Company Liliam rogers [id number] 2020 [place] - MEDICA ID MANAGED
--- OUTSIDE RECORDS SUMMARY | 2021-06-15 12:40 | CCD ---
Author Author [facility] Address Unknown Phone Unavailable Support Name Relationship Address Phone TULIO HUTCHISON Next Of Kin [address] [facility] [address] [place] [address] LIVING, TRANSITIONAL Next Of Kin [address] [place] [address] Unavailable N, PER PT ONE Next Of Kin [address] [facility] [address], [place] [address] WILMAR DUENAS Next Of Kin [address] [place] [address] NO ONE, PATIENT PER Next Of Kin [address] [place] [address] JOAN WOODWARD Next Of Kin Unknown Unavailable Yamileth Aleman Next Of Kin [address] [place] [address] CONTACT, NO Next Of Kin Unknown NO, CONTACT Next Of Kin Unknown U Next Of Kin Unknown Unavailable TLS, RESIDENTS [facility] Next Of Kin [address] [place] [address] Camelia Martinez Next Of Kin [address] [place] [address] UN Next Of Kin Unknown Unavailable none to, list Next Of Kin [address] [place] [address] ALIZA HATCH Next Of Kin [address] [place] [address] KAREN GODFREY Next Of Kin [address] [place] [address] TL, S Next Of Kin [address] [place] [address] PEPPER TORIBIO Next Of Kin Unknown UE Next Of Kin Unknown Unavailable PEPPER CHOI Next Of Kin [address] [place] [address] S Next Of Kin Unknown Unavailable Mainor HATCH Next Of Kin [address] [place] [address] ST Next Of Kin Unknown Unavailable Jorge HATCH Next Of Kin [address] [place] [address] Care Team Providers Care Safety Professional Name Role Phone LaBarge, Zeyad Unavailable SYSTEM IN, NOT IN PROVIDER Unavailable Unavailable KYLIE العلي MD Unavailable Unavailable KYLIE العلي MD Unavailable Unavailable TARA CANELA MD Unavailable Unavailable TARA CANELA MD Unavailable Unavailable Martita SIMON MD Unavailable Unavailable Martita SIMON MD Unavailable Unavailable Martita SIMON MD Unavailable Unavailable Martita SIMON MD Unavailable Unavailable Martita SIMON MD Unavailable Unavailable Martita SIMON MD Unavailable Unavailable Martita SIMON MD Unavailable Unavailable Martita SIMON MD Unavailable Unavailable COLLEENBOGDAN Meeks MD Unavailable Unavailable COLLEENBOGDAN Meeks MD Unavailable Unavailable COLLEENBOGDAN Meeks MD Unavailable Unavailable COLLEENBOGDAN Meeks MD Unavailable Unavailable COLLEENBOGDAN Meeks MD Unavailable Unavailable Sohail GROVER MD Unavailable Unavailable Sohail GROVER MD Unavailable Unavailable Sohail GROVER MD Unavailable Unavailable Cortney, Vish SPRING FORMER Unavailable Cortney, Vish SPRING FORMER Unavailable Cortney, Vish SPRING FORMER Unavailable Mariam HICKS MD Unavailable Unavailable Mariam [...] Unavailable Unavailable Mariam HICKS MD Unavailable Unavailable TARAH BOWMAN MD Unavailable Unavailable COLBY, BUDDHISM MD Unavailable Unavailable BOWMAN, BUDDHISM MD Unavailable Unavailable BOWMAN, BUDDHISM MD Unavailable Unavailable BOWMAN, BUDDHISM MD Unavailable Unavailable BOWMAN, BUDDHISM MD Unavailable Unavailable BOWMAN, BUDDHISM MD Unavailable Unavailable COLBY BUDDHISM MD Unavailable Unavailable GilesMainor MD Unavailable Unavailable GilesMainor MD Unavailable Unavailable GilesMainor ascencio MD Unavailable Unavailable GilesMainor MD Unavailable Unavailable IRMA SMITH, DEMETRI Unavailable Unavailable Janette Martinez MD Unavailable Unavailable Donte, K Tammie PMH-SPRING FORMER Unavailable Unavailable Donte, K Tammie PMH-SPRING FORMER Unavailable Unavailable Donte, K Tammie PMH-SPRING FORMER Unavailable Unavailable Donte, K Tammie PMH-SPRING FORMER Unavailable Unavailable [place], K Tammie PMH-SPRING FORMER Unavailable Unavailable Donte, K Tammie PMH-SPRING FORMER Unavailable Unavailable [place], K Tammie PMH-SPRING FORMER Unavailable Unavailable Donte, K Tammie PMH-SPRING FORMER Unavailable Unavailable Donte, K Tammie PMH-SPRING FORMER Unavailable Unavailable Donte, K Tammie PMH-SPRING FORMER Unavailable Unavailable Maria De Jesus RIBEIRO-Janette CORDERO Unavailable Unavailable Ramiro Argueta MD Unavailable Unavailable Ramiro Argueta MD Unavailable Unavailable Ramiro Argueta MD Unavailable Unavailable Ramiro Argueta MD Unavailable Unavailable Ramiro Argueta MD Unavailable Unavailable Ramiro Argueta MD Unavailable Unavailable Ramiro Argueta MD Unavailable Unavailable Ramiro Argueta MD Unavailable Unavailable Ramiro Argueta MD Unavailable Unavailable Ramiro Argueta MD Unavailable Unavailable Gonzalo COLBERT . Unavailable Unavailable Gonzalo BURLESON MD Unavailable Unavailable Gonzalo BURLESON MD Unavailable Unavailable Gonzalo BURLESON MD Unavailable Unavailable Gonzalo BURLESON MD Unavailable Unavailable Gonzalo BURLESON MD Unavailable Unavailable Gonzalo BURLESON MD Unavailable Unavailable Gonzalo BURLESON MD Unavailable Unavailable Gonzalo BURLESON MD Unavailable Unavailable Gonzalo BURLESON MD Unavailable Unavailable Gonzalo BURLESON MD Unavailable Unavailable Gonzalo BURLESON MD Unavailable Unavailable KACHARE, D DOREEN MD Unavailable Unavailable KACHARE, D DOREEN MD Unavailable Unavailable KACHARE, D DOREEN MD Unavailable Unavailable KACHARE, D DOREEN MD Unavailable Unavailable KACHARE, D DOREEN MD Unavailable Unavailable KACHARE, D DOREEN MD Unavailable Unavailable KACHARE, D DOREEN MD Unavailable Unavailable KACHARE, D DOREEN MD Unavailable Unavailable KACHARE, D DOREEN MD Unavailable Unavailable KACHARE, D DOREEN MD Unavailable Unavailable KACHARE, D DOREEN MD Unavailable Unavailable KACHARE, D DOREEN MD Unavailable Unavailable KACHARE, D DOREEN MD Unavailable Unavailable KACHARE, D DOREEN MD Unavailable Unavailable KACHARE, D DOREEN MD Unavailable Unavailable KACHARE, D DOREEN MD Unavailable Unavailable KACHARE, D DOREEN MD Unavailable Unavailable KACHARE, D DOREEN MD Unavailable Unavailable KACHARE, D DOREEN MD Unavailable Unavailable KACHARE, D DOREEN MD Unavailable Unavailable KACHARE, D DOREEN MD Unavailable Unavailable KACHARE, D DOREEN MD Unavailable Unavailable KACHARE, D DOREEN MD Unavailable Unavailable KACHARE, D DOREEN MD Unavailable Unavailable KACHARE, D DOREEN MD Unavailable Unavailable KACHARE, D DOREEN MD Unavailable Unavailable KACHARE, D DOREEN MD Unavailable Unavailable KACHARE, D DOREEN MD Unavailable Unavailable KACHARE, D DOREEN MD Unavailable Unavailable KACHARE, D DOREEN MD Unavailable Unavailable KACHARE, D DOREEN MD Unavailable Unavailable KACHARE, D DOREEN MD Unavailable Unavailable KACHARE, D DOREEN MD Unavailable Unavailable KACHARE, D DOREEN MD Unavailable Unavailable KACHARE, D DOREEN MD Unavailable Unavailable KACHARE, D DOREEN MD Unavailable Unavailable KACHARE, D DOREEN MD Unavailable Unavailable KACHARE, D DOREEN MD Unavailable Unavailable KACHARE, D DOREEN MD Unavailable Unavailable Sadia Meadows MD Unavailable Unavailable Sadia Meadows MD Unavailable Unavailable Sadia Meadows MD Unavailable Unavailable Sadia Meadows MD Unavailable Unavailable Sadia Meadows MD Unavailable Unavailable Sadia Meadows MD Unavailable Unavailable Sadia Meadows MD Unavailable Unavailable Sadia Meadows MD Unavailable Unavailable Sadia Meadows MD Unavailable Unavailable Sadia Meadows MD Unavailable Unavailable Sadia Meadows MD Unavailable Unavailable Sadia Meadows MD Unavailable Unavailable Sadia Meadows MD Unavailable Unavailable Sadia Meadows MD Unavailable Unavailable Sadia Meadows MD Unavailable Unavailable Sadia Meadows MD Unavailable Unavailable Sadia Meadows MD Unavailable Unavailable Sadia Meadows MD Unavailable Unavailable Sadia Meadows MD Unavailable Unavailable MIO, YOLANDE MD Unavailable [...] Unavailable LULEJIAN, G FORTUNATO DO Unavailable Unavailable Megna, L Deejay PA-C Unavailable [...] Unavailable Macario, F Zaki PA Unavailable Unavailable Houston, F Zaki PA Unavailable Unavailable Houston, F Zaki PA Unavailable Unavailable Macario, F Zaki PA Unavailable Unavailable Macario, F Zaki PA Unavailable Unavailable Macario, F Zaki PA Unavailable Unavailable Macario, F Zaki PA Unavailable Unavailable Houston, F Zaki PA Unavailable Unavailable PHYSICIAN, PHYSICIAN ER Unavailable Unavailable Fagrelius, Demetri Unavailable Fagrelius, Demetri Unavailable PHYSICIAN, ER Unavailable Unavailable LAUREEN LUIS Unavailable Unavailable Jovanny, R Aníbal Unavailable William Carreon Unavailable JOVANNY, R ANÍBAL Unavailable Unavailable JOVANNY, R ANÍBAL Unavailable Unavailable Fariba Sotomayor Unavailable WINNIE, A [...] PA Unavailable Dawn, R Leeroy PA Unavailable Feuga, Santiago Unavailable Feuga, Santiago Unavailable Feuga, Santiago Unavailable Feuga, Santiago Unavailable ANSHUL STRAUSS MD Unavailable Unavailable ANSHUL STRAUSS MD Unavailable Unavailable ANSHUL STRAUSS MD Unavailable Unavailable ANSHUL STRAUSS MD Unavailable Unavailable ANSHUL STRAUSS MD Unavailable Unavailable ANSHUL STRAUSS MD Unavailable Unavailable Ramiro DIAMOND MD Unavailable [...] Unavailable Unavailable Ramiro DIAMOND MD Unavailable Unavailable EDUARDO JERRY MD Unavailable Unavailable EDUARDO JERRY MD Unavailable Unavailable EDUARDO JERRY MD Unavailable Unavailable EDUARDO JERRY MD Unavailable Unavailable EDUARDO JERRY MD Unavailable Unavailable Divya Orozco NP Unavailable Unavailable Capogreco, D Leeroy Unavailable Capogreco, D Leeroy Unavailable Capogreco, D Leeroy Unavailable Capogreco, D Leeroy Unavailable Capogreco, D Leeroy Unavailable Capogreco, D Leeroy Unavailable Capogreco, D Leeroy Unavailable WILLIAM CARREON MD Unavailable Unavailable Estrada, P Velasquez Unavailable Estrada, P Velasquez Unavailable Nicole Grant MD Unavailable Unavailable Nicole [...] Unavailable Unavailable Nicole Grant MD Unavailable Unavailable Nicloe Grant MD Unavailable Unavailable Nicole Grant MD Unavailable Unavailable Nicole Grant MD Unavailable Unavailable Sukumar JENKINS MD Unavailable Unavailable Sukumar JENKINS MD Unavailable Unavailable Sukumar JENKINS MD Unavailable Unavailable Sukumar JENKINS MD Unavailable Unavailable Sukumar JENKINS MD Unavailable Unavailable Sukumar JENKINS MD Unavailable Unavailable Sukumar JENKINS MD Unavailable Unavailable Sukumar JENKINS MD Unavailable Unavailable NILS ARGUETA MD Unavailable Unavailable Humboldt, Oskar Bai MD Unavailable Unavaila ble Arian, Oskar Bai MD Unavailable Unavaila ble [place]oldt, Oskar Bai MD Unavailable Unavaila ble [place], Oskar Bai MD Unavailable Unavaila ble [place], Oskar Bai MD Unavailable Unavaila ble [place], Oskar Bai MD Unavailable Unavaila ble [place], Oskar Bai MD Unavailable Unavaila ble [place], Oskar Bai MD Unavailable Unavaila ble [place], Oskar Bai MD Unavailable Unavaila ble [place], Oskar Bai MD Unavailable Unavaila ble [place], Oskar Bai MD Unavailable Unavaila ble [place], Oskar Bai MD Unavailable Unavaila ble Liliam Negron NP Unavailable Unavailable Sohail Muñoz MD Unavailable Unavailable Sohail Muñoz MD Unavailable Unavailable Sohail Muñoz MD Unavailable Unavailable Colby, Anoop Unavailable Unavailable Colby, Anoop Unavailable Unavailable Colby Anoop Unavailable Unavailable ZEGIL, D THERESA MISCELLANEOUS MACHINE OPERATOR Unavailable Unavailable ZEGIL, D THERESA MISCELLANEOUS MACHINE OPERATOR Unavailable Unavailable ZEGIL, D THERESA MISCELLANEOUS MACHINE OPERATOR Unavailable Unavailable Ramón Levy MD Unavailable Unavailable Ramón Levy MD Unavailable Unavailable Ramón Levy MD Unavailable Unavailable Ramón Levy MD Unavailable Unavailable Ramón Levy MD Unavailable Unavailable Ramón Levy MD Unavailable Unavailable Ramón Levy MD Unavailable Unavailable ESTRADA P VELASQUEZ Unavailable Unavailable BROOKLYN ONEILL MD Unavailable Unavailable BROOKLYN ONEILL MD Unavailable Unavailable BROOKLYN ONEILL MD Unavailable Unavailable BROOKLYN ONEILL MD Unavailable Unavailable BROOKLYN ONEILL MD Unavailable Unavailable BROOKLYN ONEILL MD Unavailable Unavailable BROOKLYN ONEILL MD Unavailable Unavailable Janette Martinez MD Unavailable Unavailable Janette Martinez MD Unavailable Unavailable Ramiro Dawn Unavailable Unavailable Re-disclosure Warning The records that [...] is protected by Article 27-F of the [facility] Public Health law. If you continue you may have access to information: Regarding HIV / AIDS; Provided by facilities licensed or operated by the [facility] Office of Mental Health; or Provided by the [facility] Office for People With Developmental Disabilities. If such information is present, then the following [facility] mandated warning applies: This information has [...] law may result in a fine or fpc sentence or both. A general authorization for the release of medical or other information is NOT sufficient authorization for further disc losure. Allergies and Adverse Reactions Type Description Substance Reaction Status Data Source(s ) Propensity to adverse reactions to substance Risperdal Risperidone 1 MG Oral Tablet [Risperdal] Active [facility] Drug allergy Drug allergy risperidone Unknown Reaction [facility] Drug allergy Drug allergy haloperidol (From Haldol) Unknown Reaction [facility] Propensity to adverse reactions to substance Risperdal Risperidone 1 MG Oral Tablet [Risperdal] Active [facility] ([facility] Drug allergy risperidone risperidone ADDITIONAL UNSPECIFIED [facility] Drug allergy haloperidol haloperidol ADDITIONAL UNSPECIFIED [facility] SEASONAL ALLERGIES SEASONAL ALLERGIES [facility] ([facility]) No Allergies No Allergies [facility] ([facility]) No allergies to food No allergies to food [facility] ([facility]) NKDA NKDA [facility] ([facility]) Drug allergy haloperidol [facility]oper[facility]ol [facility] Family History Family Member Name Family Member Gender Family Member Status Date o f Status Description Data Source(s) Unknown Male Condition Family Member ADD / ADHD S [facility] Encounters Encounter Providers Location Date Indications Data Source(s ) Telemed Diagnostic Eval Attender: Santiago Giles MD [facility] 06/12/2021 11:00:00 AM EST - 06/12/2021 11:00:00 AM EST [facility] ([facility]) Attender: Santiago Giles MD 06/12/2021 12:00:00 AM EST [facility] ([facility]) Emergency Attender: MAGY DIAMOND MD ES1-CP2 021 08:40:00 AM EST - 06/10/2021 10:22:00 AM EST [facility] Patient discharged. Emergency Attender: ER PHYSICIAN 06/10/2021 01:35:54 AM [facility] Emergency Attender: OSBALDO JENKINS MDAttender: ER PHYSICIAN 06/09/2021 10:51:00 PM EST - 06/10/2021 11:26:00 AM EST SUICIDE THOUGHS ANEXITY [facility] SUICIDE THOUGHS ANEXITY Patient discharged. Inpatient Attender: Velasquez Lemos er: VELASQUEZ Richmondender: MAGY DIAMOND MDAdmitter: MAGY DIAMOND MD [id number] 06/07/2021 06:21:00 PM EST - 06/09/2021 11:24:00 AM EST [facility] Patient discharged. Extended Individual Psychotherapy - 45 min Attender: Ingrid Farley [facility] 06/03/2021 02:00:00 AM EST - 06/03/2021 02:00:00 AM EST [facility] ([facility]) Attender: Zeyad Farley 06/03/2021 12:00:00 AM EST [facility] ([facility] Inpatient Attender: Velasquez Lemos er: VELASQUEZ ESTRADAAttender: Sadia Cortez MDAttender: Aníbal MadrigalAttender: ANÍBAL DOMITILAAdmitter: Sadia Cortez MD [id number] 05/28/2021 09:02:00 PM EST - 05/30/2021 01:26:00 PM EST [facility] Patient discharged. IP PSYCH Attender: Richardson bui MDAttender: Demetri ToddusAttender: DEMETRI SOLIS MDAdmitter: Richardson Santa MDConsultant: DOREEN BURLESON MD [id number] 05/21/2021 04:00:00 PM EST - 05/22/2021 01:41:[address] [facility] Patient discharged. Inpatient Attender: AMADA SIMON MD Attender: DYLAN RIBEIROAttender: BROOKLYN ONEILL MDAttender: ZEESHAN GROVER MDAdmitter: BROOKLYN ONEILL MD ER-3RD 05/13/2021 11:10:00 PM EDT - 05/15/2021 11:10:00 AM EDT [facility] Patient discharged. [facility] 05/12/2021 12:00:00 AM EDT [facility] Inpatient Attender: BROOKLYN ONEILL MDAttender: ZEESHAN GROVER MDAdmitter: BROOKLYN ONEILL MD ER-3RD 05/06/2021 02:17:00 PM EDT - 05/08/2021 04:22:00 PM EDT [facility] Patient discharged. Emergency Attender: THERESA BARAHONA [facility] ED-ED 04/12 07:56:00 PM EDT - 05/05/2021 11:21:00 PM EDT suicidal ideation [facility] suicidal ideation Patient discharged. Inpatient Attender: BOGDAN MACIAS MDAtten víctor: DYLAN RIBEIROAttender: BROOKLYN ONEILL MDAttender: KYLIE العلي MDAdmitter: BROOKLYN ONEILL MD ER-3RD 05/01/2021 04:51:00 PM EDT - 05/05/2021 11:59:00 AM EDT [facility] Patient discharged. Emergency Attender: Zaki OWENS ED-ED 01:54:00 AM EDT - 05/01/2021 09:45:00 AM EDT PSYCHIATRIC [facility] PSYCHIATRIC Patient discharged. Emergency Attender: Zaki OWENS ED-ED 11:28:00 PM EDT - 05/01/2021 01:25:00 AM EDT DEPRESSION [facility] DEPRESSION Patient discharged. Emergency Attender: Angelica Martinez MDAttender: Angelica Martinez MD ED-ED 04/30/2021 07:03:00 PM EDT - 04/30/2021 10:30:00 PM EDT [facility] DEPRESSION Patient discharged. Inpatient Attender: BOGDAN MACIAS MDAtten víctor: BROOKLYN ONEILL MDAttender: Ramón Levy MDAdmitter: BROOKLYN ONEILL MD ER-3RD 04/27/20 04:51:00 AM EDT - 04/30/2021 02:30:00 PM EDT [facility] Patient discharged. Inpatient Attender: BROOKLYN ONEILL MDAttender: aRmón Levy MDAdmitter: BROOKLYN ONEILL MD ER-3RD 04/26/2021 02:30:00 AM EDT - 04/26/2021 03:15:00 PM EDT [facility] Patient discharged. Emergency Attender: LAUREEN LUIS ES1-CP2 021 01:05:00 PM EDT - 04/24/2021 04:29:00 PM EDT [facility] Patient discharged. Emergency Attender: Zaki OWENS ED-ED 08:53:00 PM EDT - 04/24/2021 11:08:00 AM EDT SUICIDAL THOUGHTS,ANXIETY [facility] SUICIDAL THOUGHTS,ANXIETY Patient discharged. Emergency Attender: Ramón Levy MD ER-ER 1 10:29:00 PM EDT - 04/21/2021 03:43:00 PM EDT [facility] Patient discharged. Emergency Attender: ZEESHAN GROVER MD ER-ER 03/2021 01:17:00 AM EDT - 04/19/2021 02:55:00 PM EDT [facility] Patient discharged. Emergency Attender: KENRICK ZHOU PAAttender: Zaki OWENS ED-ED 04/17/2021 01:21:00 AM EDT - 04/17/2021 01:48:00 PM EDT CONSUMED CLEANING AGENT [facility] CONSUMED CLEANING AGENT Patient discharged. [facility]-billable [facility] 04/14/2021 12:00:00 AM EDT [facility]) Emergency Attender: Nils Argueta MD ER-ER 2020 08:28:00 PM EDT - 04/14/2021 04:43:00 PM EDT [facility] Patient discharged. Emergency Attender: THERESA BARAHONA [facility] ED-ED 08/2020 03:11:00 AM EDT - 04/13/2021 06:45:00 PM EDT THINKING OF SELF HARM [facility] THINKING OF SELF HARM Patient discharged. Inpatient Attender: BOGDAN Hassan víctor: ZEESHAN GROVER MDAdmitter: BOGDAN MACIAS MD ER-3RD 04/09/2021 12:50:00 PM EDT - 04/11/2021 10:46:00 AM EDT [facility] Patient discharged. Inpatient Attender: Deejay Pearson PA-buoy tender: JOSE HICKS MDAttender: Leeroy Sharpttender: LEEROY COLBERT .Admitter: JOSE HICKS MDReferrer: JOSE HICKS MD [id number] 04/05/2021 12:00:00 AM EDT - 04/07/2021 12:21:00 PM EDT [facility] suicidal Patient discharged. Emergency Attender: LAUREEN LUIS ES1-CP2 021 11:17:00 PM EDT - 04/04/2021 01:56:00 PM EDT [facility] Patient discharged. Inpatient Attender: BOGDAN MACIAS MDAtten víctor: BROOKLYN ONEILL MDAttender: Nils Argueta MDAdmitter: BROOKLYN ONEILL MD ER-3RD 04/01/2021 0 6:08:00 PM EDT - 04/03/2021 10:22:00 AM EDT [facility] Patient discharged. Emergency Attender: KENRICK ZHOU PAAttender: Zaki OWENS ED-ED 03/27/2021 10:08:00 PM EDT - 03/30/2021 06:15:00 AM EDT SUICIDAL THOUGHTS,ANXIETY [facility] SUICIDAL THOUGHTS,ANXIETY Patient discharged. Emergency Attender: Leeroy Dawn PAAttender: Leeroy OWENS ED-ED 03/25/2021 08:09:00 PM EDT - 03/25/2021 11:25:00 PM EDT MENTAL HEALTH ISSUES [facility] MENTAL HEALTH ISSUES Patient discharged. Inpatient Attender: Velasquez Lemos er: VELASQUEZ ESTRADAAttender: TARAH BOWMAN MDAdmitter: TARAH BOWMAN MD [id number] 03/21/2021 02:54:00 AM EDT - 03/24/2021 12:21:00 PM EDT [facility] Patient discharged. Psychiatric Diagnostic Evaluation (Non-Medical) Attender: Rosa larios [facility] 03/20/2021 01:00:00 AM EDT - 03/20/2021 01:00:00 AM EDT [facility] ([facility]) Emergency Attender: THERESA BARAHONA [facility] ED-ED 03/2021 12:32:00 AM EDT - 03/20/2021 01:00:00 AM EDT MENTAL HEALTH ISSUES [facility] MENTAL HEALTH ISSUES Patient discharged. Attender: Zeyad Farley 03/20/2021 12:00:00 AM EDT [facility] ([facility]) Outpatient Attender: Darren Negron NP 03/17/2021 09:0 7:00 PM EDT Amb Documentation [facility] Amb Documentation Outpatient Attender: Darren Negron NPAdm itter: Divya Orozco NPConsultant: Divya Orozco NP 03/16/2021 09:50:00 PM EDT Suicidal Ideations [facility] Suicidal Ideations Inpatient Attender: Divya Floresrebecca NPAdmitter: Divya gonzales [employer] 03/16/2021 09:50:00 PM EDT - 03/19/2021 11:43:00 AM EDT Suicidal Ideations [facility] Suicidal Ideations Patient discharged. Outpatient Attender: Vish Barr NPAd mitter: Divya Orozco NPConsultant: Divya Orozco [employer] 03/16/2021 09:50:00 PM EDT Suicidal Ideations [facility] Suicidal Ideations Outpatient Attender: Divya Orozco NPA dmitter: Divya Orozco NPConsultant: Divya Orozco [employer] 03/16/2021 09:50:00 PM EDT Suicidal Ideations [facility] Suicidal Ideations Emergency Attender: Anoop Bowman ER-ER 03/16/20 05:07:00 AM EDT - 03/16/2021 07:30:00 PM EDT [facility] Patient discharged. Emergency Attender: Leeroy OWENS ED-ED 021 11:49:00 PM EDT - 03/16/2021 01:34:00 AM EDT MEDICATION SWITCH FOR MENTAL HEALTH [facility] MEDICATION SWITCH FOR MENTAL HEALTH Patient discharged. IP PSYCH Attender: WADE KELLEY MD Attender: YOLANDE LIEBERMAN MDAttender: Marky Grant MDAdmitter: YOLANDE LIEBERMAN MDConsultant: William CoeirConsultant: WILLIAM CARREON MD [id number] 03/13/2021 11:02:00 AM EDT - 03/15/2021 01:22:[address] [facility] Patient discharged. [facility]billable [facility] 03/12/2021 12:00:00 AM EDT [facility] Emergency Attender: Leeroy RUIZttender: KENRICK OWENS ED-ED 03/05/2021 06:28:00 PM EDT - 03/06/2021 01:47:00 PM EDT MENTAL HEALTH ISSUES [facility] MENTAL HEALTH ISSUES Patient discharged. Emergency Attender: Ramirez Muñoz MD ED-ED 03/03/20 12:40:00 AM EDT - 03/03/2021 09:59:00 AM EDT [facility] MENTAL [facility] Patient discharged. Emergency Attender: Nils Argueta MD ER-ER 2020 02:30:00 AM EDT - 03/02/2021 11:27:00 AM EDT [facility] Patient discharged. Emergency Attender: Nils Argueta MD ER-ER 2020 09:08:00 PM EDT - 03/01/2021 12:39:00 PM EDT [facility] Patient discharged. Outpatient [address] [id number] Team 02/27/2021 02:45:00 PM EDT [facility] Patient admitted. Inpatient Attender: MAGY Clifton nder: Velasquez EstradaAttender: VELASQUEZ ESTRADAAdmitter: MAGY DIAMOND MDReferrer: PROVIDER SYSTEM [id number] 02/21/2021 12:14:00 PM EDT - 02/25/2021 11:39:00 AM EDT [facility] Patient discharged. Emergency Attender: Ramón Levy MD ER-ER 0 02/20/2021 10:45:00 PM EDT - 02/21/2021 11:44:00 PM EDT [facility] Patient discharged. Emergency Attender: Ramón Levy MD ER-ER 0 02/19/2021 02:28:00 AM EDT - 02/19/2021 10:15:00 AM EDT [facility] Patient discharged. Emergency Attender: Anoop [facility] ER-ER 02/18/20 03:10:00 AM EDT - 02/17/2021 01:54:00 PM EDT [facility] Patient discharged. Emergency Attender: Santiago Stewartender: Anoop Hayward R-ER 02/15/2021 08:00:00 PM EDT - 02/16/2021 01:02:00 PM EDT [facility] Patient discharged. Emergency Attender: KENRICK OWENS ED-ED 02/14 09:21:00 PM EDT - 02/14/2021 11:01:00 PM EDT VOMITING,DIARRHEA [facility] VOMITING,DIARRHEA Patient discharged. Inpatient Attender: DYLAN Michelle er: BROOKLYN ONEILL MDAttender: AMADA SIMON MDAttender: KYLIE العلي MDAdmitter: AMADA SIMON MD ER-3RD 01/03/2021 11:03:00 AM EDT - 02/13/2021 11:40:00 AM EDT [facility] Patient discharged. Outpatient Attender: Tammie Kent [facility] Intermediate 11/13/2020 09:30:00 AM EDT - 11/13/2020 09:30:00 AM EDT [facility] ([facility]) Attender: Tammie Kent [facility] 11/13/2020 12: 00:00 AM EDT [facility] ([facility]) Inpatient Attender: BROOKLYN ONEILL MDAttender: BOGDAN MACIAS MDAttender: KYLIE العلي MDAdmitter: BOGDAN MACIAS MD ER-3RD 10/31/2020 0 8:49:00 AM EDT - 01/01/2021 01:05:00 PM EDT [facility] Patient discharged. Outpatient [id number] 10/29/2020 09:35:00 PM EDT [facility] Inpatient Attender: ZEESHAN GROVER MD Attender: BROOKLYN ONEILL MDAttender: ANSHUL STRAUSS MDAdmitter: BROOKLYN ONEILL MD ER-3RD 10:58:00 AM EDT - 10/29/2020 12:50:00 PM EDT [facility] Patient discharged. Extended Individual Psychotherapy - 45 min Attender: Ingrid salazar [facility] 08/27/2020 11:00:00 AM EST - 08/27/2020 11:00:00 AM EST [facility] ([facility]) Attender: Zeyad [facility] 08/27/2020 12:00:00 AM EST [facility] ([facility]) Psychiatric Diagnostic Evaluation (Non-Medical) Attender: Rosa larios [facility] 08/23/2020 10:00:00 AM EST - 08/23/2020 10:00:00 AM EST [facility] ([facility]) Attender: Zeyad LaBarge 08/23/2020 12:00:00 AM EST [facility] ([facility]) Outpatient Referrer: FORTUNATO BUTCHER DO 07/11/2020 02 :52:00 PM EST suicide attempt, borderline personality disorder, depression [facility] suicide attempt, borderline personality disorder, depression Extended Individual Psychotherapy - 45 min Attender: Jessica Sotomayor [facility] 06/24/2020 11:00:00 AM EST - 06/24/2020 11:00:00 AM EST [facility] ([facility]) Attender: aFriba Sotomayor 06/24/2020 12:00:00 AM EST [facility] ([facility]) Inpatient Attender: FILI CANELA MDAt tender: Nils Argueta MDAttender: NILS ARGUETA MDAdmitter: FILI CANELA MD ER-3RD 06/15/2020 04:05: 00 AM EST - 06/17/2020 01:23:00 PM EST [facility] Patient discharged. Inpatient Attender: BOGDAN MACIAS MDAtten víctor: BROOKLYN ONEILL MDAttender: KYLIE العلي MDAdmitter: BROOKLYN ONEILL MD ER-3RD 12/2019 09:22:00 PM EDT - 05/17/2020 08:58:00 AM [facility] Patient discharged. Inpatient Attender: EDUARDO Salazar MDAttender: BOGDAN MACIAS MDAttender: AMADA SIMON MDAdmitter: AMADA SIMON MD ER-3RD 020 10:06:00 PM EDT - 12/13/2019 10:30:00 AM EDT [facility] Patient discharged. Inpatient Attender: OBGDAN MACIAS MDAtten víctor: FILI CANELA MDAttender: Ramón Anguiano MDAdmitter: BOGDAN MACIAS MD ER-3RD 11/02/2019 10:24:00 AM EDT - 11/08/2019 12:07:00 PM EDT [facility] Patient discharged. Inpatient Attender: BOGDAN MACIAS MDAtten víctor: BROOKLYN ANGUSMARY ANNSANDY MDAttender: AMADA SIMON MDAttender: ANSHUL STRAUSS MDAdmitter: AMADA SIMON MD ER-3RD 08/04/2019 06:28:00 PM EST - 08/11/2019 11:25:00 AM [facility] Patient discharged. Emergency Attender: ANSHUL STRAUSS MD ER-ER 1 07/13/2017 06:59:00 PM EDT - 05/18/2018 06:04:00 PM [facility] Emergency Attender: EDUARDO JERRY MD ER-ER 04/12/2018 05:21:00 PM EDT - 04/16/2018 06:48:00 PM EDT [facility] Functional Status Immunizations Vaccine Date Status Description Data Source(s) COVID-19 (Sophia/J and J), vector-nr, [id number], PF, 0. 5 mL 11/12/2020 12:00:00 AM EDT completed [facility] COVID-19 VACCINE Sophia 11/12/2020 12:00:00 AM EDT completed [facility] Vaccine Series Complete: YESThis Data wa s Submitted to [facility] Via [employer]. Medications Medication Brand Name Start Date Product Form Dose Route Admi nistrative Instructions Pharmacy Instructions Status Indications Reaction Description Data Source(s) olanzapine 10 MG Disintegrating Oral Tab let OLANZapine zydis (ZYPREXA) disintegrating tablet 10 mg OLANZapine zydis (ZYPREXA) disintegratin g tablet 10 mg 06/08/2021 12:00:00 PM EST 10 mg Oral active 10 mg, Oral, Every 8 hours PRN, agitation, Starting on 06/08/21 at 1200, For 30 days [facility] Medication administered onsite chlorproMAZINE (THORAZINE) injection 100 mg [id number] 06/08/2021 09:30:00 AM EST 100 mg Intramuscular completed 100 mg, Intramuscular, Once, On 06/08/21 at 0930, For 1 dose [facility] Medication administered onsite diphenhydrAMINE (BENADRYL) injection 50 mg [id number] 06/08/2021 09:30:00 AM EST 50 mg Intramuscular completed 50 mg, Intramuscular, Once, On 06/08/21 at 0930, For 1 dose [facility] Medication administered onsite Sertraline 50 MG Oral Tablet sertraline (ZOLOFT) table t 50 mg sertraline (ZOLOFT) tablet 50 mg 06/08/2021 09:00:00 AM EST 50 mg Oral active 50 mg, Oral, Daily Standard, First dose on 06/08/21 at 0900, For 30 days [facility] Medication administered onsite aripiprazole 5 MG Oral Tablet ARIPiprazole (ABILIFY) t ablet 5 mg ARIPiprazole (ABILIFY) tablet 5 mg 06/08/2021 09:00:00 AM EST 5 mg Oral active 5 mg, Oral, Daily Standard, First dose on 06/08/21 at 0900, For 30 days [facility] Medication administered onsite Loratadine 10 MG Oral Tablet loratadine (CLARITIN) tab let 10 mg loratadine (CLARITIN) tablet 10 mg 06/08/2021 09:00:00 AM EST 10 mg Oral active 10 mg, Oral, Daily Standard, First dose on 06/08/21 at 0900, For 30 days [facility] Medication administered onsite diphenhydrAMINE (BENADRYL) 50 MG/ML injection [id number] 06/08/2021 08:50:41 AM EST completed Starti ng on 06/08/21 at 0850, For 1 dose
Created by cabinet override
[facility] Medication administered onsite chlorproMAZINE (THORAZINE) 50 MG/2ML injection [id number] 06/08/2021 08:49:38 AM EST completed Starti ng on 06/08/21 at 0849, For 1 dose
Created by cabinet override
[facility] Medication administered onsite Prazosin 1 MG Oral Capsule prazosin (MINIPRESS) capsul e 2 mg prazosin (MINIPRESS) capsule 2 mg 06/07/2021 10:00:00 PM EST 2 mg Oral active 2 mg, Oral, Nightly, First dose on 06/07/21 at 2200, For 30 days
Check vital signs before administering
[facility] Medication administered onsite montelukast 10 MG Oral Tablet montelukast (SINGULAIR) tablet 10 mg montelukast (SINGULAIR) tablet 10 mg 06/07/2021 10:00:00 PM EST 10 mg Oral active 10 mg, Oral, Nightly, First dose on 06/07/21 at 2200, For 30 days [facility] Medication administered onsite olanzapine 5 MG Oral Tablet OLANZapine (ZYPREXA) table t 5 mg OLANZapine (ZYPREXA) tablet 5 mg 06/07/2021 10:00:00 PM EST 5 mg Oral active 5 mg, Oral, Nightly, First dose on 06/07/21 at 2200, For 30 days [facility] Medication administered onsite Acetaminophen 325 MG Oral Tablet acetaminophen (TYLENO L) tablet 650 mg acetaminophen (TYLENOL) tablet 650 mg 06/07/2021 06:59:37 PM EST 65 0 mg Oral active 650 mg, Oral, E very 6 hours PRN, Mild Pain (Pain Scale Score 1- 3), Starting on 06/07/21 at 1859, For 30 days
Maximum daily dose of acetaminophen is 3,000 mg from all sources in 24 hours.
[facility] Medication administered onsite Hydroxyzine Hydrochloride 50 MG Oral Tablet hydrOXYzin e (ATARAX) tablet 50 mg hydrOXYzine (ATARAX) tablet 50 mg 06/07/2021 06:59:33 PM EST 50 mg Oral active 50 mg, Oral, Every 6 hours PRN, Anxiety, Starting on 06/07/21 at 1859, For 30 days [facility] Medication administered onsite Prazosin 1 MG Oral Capsule prazosin (MINIPRESS) capsul e 2 mg prazosin (MINIPRESS) capsule 2 mg 05/29/2021 10:00:00 PM EST 2 mg Oral active 2 mg, Oral, Nightly, First dose on Radha 05/29/21 at 2200, For 30 days
Check vital signs before administering
[facility] Medication administered onsite olanzapine 5 MG Oral Tablet OLANZapine (ZYPREXA) table t 5 mg OLANZapine (ZYPREXA) tablet 5 mg 05/29/2021 10:00:00 PM EST 5 mg Oral active 5 mg, Oral, Nightly, First dose on Radha 05/29/21 at 2200, For 30 days [facility] Medication administered onsite montelukast 10 MG Oral Tablet montelukast (SINGULAIR) tablet 10 mg montelukast (SINGULAIR) tablet 10 mg 05/29/2021 10:00:00 PM EST 10 mg Oral active 10 mg, Oral, Nightly, First dose on Wed05/29/21 at 2200, For 30 days [facility] Medication administered onsite olanzapine 5 MG/ML Injectable Solution OLANZapine (ZYP REXA) injection 10 mg OLANZapine (ZYPREXA) injection 10 mg 05/29/2021 02:30:00 PM EST 10 mg Intramuscular completed 10 mg, Intr amuscular, Once, On Wed05/29/21 at 1430, For 1 dose
Reconstitute 10 mg vial with 2.1 mL SWFI; resulting solution is ~5 mg/mL; Use within 1 hour following reconstitution. May be given over objection
[facility] Medication administered onsite diphenhydrAMINE (BENADRYL) injection 50 mg [id number] 05/29/2021 02:30:00 PM EST 50 mg Intramuscular completed 50 mg, Intramuscular, Once, On Wed05/29/21 at 1430, For 1 dose
May be given over objection
[facility] Medication administered onsite olanzapine 5 MG Disintegrating Oral Tabl et OLANZapine zydis (ZYPREXA) disintegrating tablet 5 mg OLANZapine zydis (ZYPREXA) disintegratin g tablet 5 mg 05/29/2021 12:22:40 PM EST 5 mg Oral active 5 mg, Oral, Every 8 hours PRN, agitation, Starting on Wed05/29/21 at 1222, For 30 days [facility] Medication administered onsite Calcium Carbonate 500 MG Chewable Tablet calcium carbonate (TUMS) chewable tablet 500 mg calcium carbonate (TUMS) chewable tablet 500 mg 2020 11:42:07 AM EST 500 mg Oral active 500 mg, Oral, Daily PRN, Indigestion, Starting on Wed05/29/21 at 1142, For 30 days [facility] Medication administered onsite Loratadine 10 MG Oral Tablet loratadine (CLARITIN) tab let 10 mg loratadine (CLARITIN) tablet 10 mg 05/29/2021 09:00:00 AM EST 10 mg Oral active 10 mg, Oral, Daily Standard, First dose on Wed05/29/21 at 0900, For 30 days [facility] Medication administered onsite Nicotine 2 MG Oral Lozenge nicotine (NICORETTE) lozeng e 2 mg nicotine (NICORETTE) lozenge 2 mg 05/29/2021 08:03:42 AM EST 2 mg Mouth/Th roat active 2 mg, Mouth/Throat, Every 2 hours PRN, Smoking cessation, Starting on Wed05/29/21 at 0803, For 30 days
Should not be chewed or swallowed; allow to dissolve slowly (~20-30 minutes)
[facility] Medication administered onsite diphenhydrAMINE (BENADRYL) injection 50 mg [id number] 05/29/2021 02:15:00 AM EST 50 mg Intramuscular completed 50 mg, Intramuscular, Once, On Wed05/29/21 at 0215, For 1 dose [facility] Medication administered onsite olanzapine 5 MG/ML Injectable Solution OLANZapine (ZYP REXA) 10 MG injection OLANZapine (ZYPREXA) 10 MG injection 05/29/2021 01:59:23 AM EST completed Starting on 05/12 at 0159, For 1 dose
Created by cabinet override
[facility] Medication administered onsite Ondansetron 4 MG Disintegrating Oral Tab let ondansetron (ZOFRAN-ODT) disintegrating tablet 4 mg ondansetron (ZOFRAN-ODT) disintegrating tablet 4 mg 05/28/2021 11:03:22 PM EST 4 mg Oral active 4 mg, Oral, Every 6 hours PRN, Nausea, Starting on Wed05/28/21 at 2303, For 30 days
Dissolve on tongue.
[facility] Medication administered onsite Hydroxyzine Hydrochloride 50 MG Oral Tablet hydrOXYzin e (ATARAX) tablet 50 mg hydrOXYzine (ATARAX) tablet 50 mg 05/28/2021 11:03:19 PM EST 50 mg Oral active 50 mg, Oral, Every 6 hours PRN, Anxiety, Sleep, Starting on Wed05/28/21 at 2303, For 30 days [facility] Medication administered onsite Magnesium Hydroxide 80 MG/ML Oral Suspen tamela magnesium hydroxide (MILK OF MAGNESIA) 400 MG/5ML oral suspension 30 mL magnesium hydroxide (MILK OF MAGNESIA) 400 MG/5ML oral suspension 30 mL 05/28/2021 11:03:16 PM EST 30 mL Oral active 30 mL, Oral, D aily PRN, Constipation, Starting on Wed05/28/21 at 2303, For 30 days
Shake well before using If serum creatinine > 2 notify provider before administering
[facility] Medication administered onsite Acetaminophen 325 MG Oral Tablet acetaminophen (TYLENO L) tablet 650 mg acetaminophen (TYLENOL) tablet 650 mg 05/28/2021 11:03:15 PM EST 65 0 mg Oral active 650 mg, Oral, E very 6 hours PRN, All Levels of Pain (Pain Scale Score 1-10), Starting on Wed05/28/21 at 2303, For 30 days
Maximum daily dose of acetaminophen is 3,000 mg from all sources in 24 hrs.
[facility] Medication administered onsite Escitalopram 10 MG Oral Tablet Escitalopram Oxalate 10 MG Oral Tablet (LEXAPRO) Escitalopram Oxalate 10 MG Oral Tablet (LEXAPRO) 05/22/2021 12:00:00 AM EST 10 mg Oral aborted Take 10 mg by mouth edward y with [facility] aripiprazole 5 MG Oral Tablet ARIPiprazole 5 MG Oral T ablet (ABILIFY) ARIPiprazole 5 MG Oral Tablet (ABILIFY) 05/20/2021 12:00:00 AM EST 5 mg Oral aborted Take 5 mg by mouth daily [facility] 5 mg 05/20/2021 12:00:00 AM EST tablet 15 TAKE ONE TABLET BY MOUTH EVERY DAY FOR MOOD TAKE ONE TABLET BY MOUTH EVERY DAY FOR MOOD SOLD: 05/20/2021 [facility] 25 mg 05/20/2021 12:00:00 AM EST tablet 30 TAKE THREE TABLETS BY MOUTH EVERY DAY FOR MOOD/HEADACHES TAKE THREE TABLETS BY MOUTH EVERY DAY FO R MOOD/HEADACHES SOLD: 05/20/2021 [facility] 10 mg 05/15/2021 12:00:00 AM EDT tablet 30 TAKE ONE TABLET BY MOUTH TWICE A DAY TAKE ONE TABLET BY MOUTH TWICE A DAY SOLD: 05/20/2021 [facility] 2 mg 05/15/2021 12:00:00 AM EDT capsule 15 TAKE ONE CAPSULE BY MOUTH AT BEDTIME FOR NIGHT TERRORS TAKE ONE CAPSULE BY MOUTH AT BEDTIME FOR NIGHT TERRORS SOLD: 05/20/2021 [facility] montelukast 10 MG Oral Tablet MONTELUKAST SODIUM 05/15/2021 12:0 0:00 AM EDT tablet 15 TAKE ONE TABLET BY MOUTH EVERY D AY FOR ALLERGIES TAKE ONE TABLET BY MOUTH EVERY DAY FOR ALLERGIES SOLD: 05/20/2021 [facility] 10 mg 05/15/2021 12:00:00 AM EDT tablet 15 TAKE ONE TABLET BY MOUTH EVERY DAY FOR ALLERGIES TAKE ONE TABLET BY MOUTH EVERY DAY FOR ALLERGIES SOLD: 05/20/2021 [facility] 400 mg 05/15/2021 12:00:00 AM EDT suspension,extended rel syring 1 INJECT 1 SYRINGE INTRAMUSCULARLY ONCE MONTHLY INJECT 1 SYRINGE INTRAMUSCULARLY ONCE MONTHLY SOLD: 05/20/2021 [facility] 50 mg 05/15/2021 12:00:00 AM EDT tablet 15 TAKE ONE TABLET BY MOUTH EVERY DAY FOR DEPRESSION TAKE ONE TABLET BY MOUTH EVERY DAY FOR DEPRESSION SOLD : 05/20/2021 [facility] Sertraline 50 MG Oral Tablet sertraline (ZOLOFT) table t 50 mg sertraline (ZOLOFT) tablet 50 mg 04/07/2021 10:45:00 AM EDT 50 mg Oral active 50 mg, Oral, Daily Standard, First dose on Wed04/07/21 at 1045, For 30 days [facility] Medication administered onsite aripiprazole 5 MG Oral Tablet ARIPiprazole (ABILIFY) t ablet 10 mg ARIPiprazole (ABILIFY) tablet 10 mg 04/07/2021 10:45:00 AM EDT 10 mg Oral active 10 mg, Oral, Daily Standard, First dose on Wed04/07/21 at 1045, For 30 days [facility] Medication administered onsite Sertraline 50 MG Oral Tablet Sertraline HCl 50 MG Oral Tablet (ZOLOFT) Sertraline HCl 50 MG Oral Tablet (ZOLOFT) 04/07/2021 12:00:00 AM EDT aborted Take 50 mg for 2 day s, then increase to 100 mg on 04/10, and increase to 150 mg on 04/13. [facility] olanzapine 5 MG/ML Injectable Solution OLANZapine (ZYP REXA) injection 10 mg OLANZapine (ZYPREXA) injection 10 mg 04/06/2021 10:45:00 PM EDT 10 mg Intramuscular completed 10 mg, Intr amuscular, Once, On 04/06/21 at 2245, For 1 dose
Reconstitute 10 mg vial with 2.1 mL SWFI; resulting solution is ~5 mg/mL; Use within 1 hour following reconstitution.
[facility] Medication administered onsite Prazosin 1 MG Oral Capsule prazosin (MINIPRESS) capsul e 1 mg prazosin (MINIPRESS) capsule 1 mg 04/05/2021 10:00:00 PM EDT 1 mg Oral active 1 mg, Oral, Nightly, First dose on 04/05/21 at 2200, For 30 days
Check vital signs before administering
[facility] Medication administered onsite olanzapine 10 MG Oral Tablet OLANZapine (ZYPREXA) tabl et 10 mg OLANZapine (ZYPREXA) tablet 10 mg 04/05/2021 07:40:57 PM EDT 10 mg Oral active 10 mg, Oral, Every 2 hours PRN, Agitation, MDD 20 mg, Starting on 04/05/21 at 1940, For 30 days [facility] Medication administered onsite Ibuprofen 400 MG Oral Tablet ibuprofen (MOTRIN) tablet 400 mg ibuprofen (MOTRIN) tablet 400 mg 04/05/2021 07:34:02 PM EDT 400 mg Oral act shea 400 mg, Oral, Every 6 hours PRN, Moderate Pain (Pain Scale Score 4-6), Headaches, Starting on 04/05/21 at 1934, For 30 days
Take with food.
[facility] Medication administered onsite multivitamin tablet 1 tablet [id number] 04/05/2021 08:00:00 AM EDT 1 {tbl} Oral active 1 tablet, Oral , Daily Standard, First dose on 04/05/21 at 0800, For 30 days [facility] Medication administered onsite Nicotine 2 MG Oral Lozenge nicotine (NICORETTE) lozeng e 2 mg nicotine (NICORETTE) lozenge 2 mg 04/05/2021 06:25:36 AM EDT 2 mg Mouth/Th roat active 2 mg, Mouth/Throat, Every 2 hours PRN, Smoking cessation, Starting on 04/05/21 at 0625, For 30 days
Should not be chewed or swallowed; allow to dissolve slowly (~20-30 minutes)
[facility] Medication administered onsite Ondansetron 4 MG Disintegrating Oral Tab let ondansetron (ZOFRAN-ODT) disintegrating tablet 4 mg ondansetron (ZOFRAN-ODT) disintegrating tablet 4 mg 04/05/2021 06:25:36 AM EDT 4 mg Oral active 4 mg, Oral, Every 6 hours PRN, Nausea, Starting on 04/05/21 at 0625, For 30 days
Dissolve on tongue.
[facility] Medication administered onsite Magnesium Hydroxide 80 MG/ML [...] creatinine > 2 notify provider before administering.
[facility] Medication administered onsite Acetaminophen 325 MG Oral [...] mg from all sources in 24 hrs.
[facility] Medication administered onsite Hydroxyzine Hydrochloride 50 MG Oral Tablet hydrOXYzin e (ATARAX) tablet 50 mg hydrOXYzine (ATARAX) tablet 50 mg 04/05/2021 06:25:35 AM EDT 50 mg Oral active 50 mg, Oral, Every 6 hours PRN, Anxiety, Sleep, Starting on 04/05/21 at 0625, For 30 days [facility] Medication administered onsite Aluminum Hydroxide 40 MG/ML [...] at 0625, For 30 days
MDD 4
[facility] Medication administered onsite Melatonin 5 MG Oral Tablet melatonin tablet 5 mg melatonin t ablet 5 mg 04/05/2021 06:25:23 AM EDT 5 mg Oral active 5 mg, Oral, Nightly PRN, Sleep, Starting on 04/05/21 at 0625, For 30 days [facility] Medication administered onsite aripiprazole 10 MG Oral Tablet ARIPiprazole 10 MG Oral Tablet (ABILIFY) ARIPiprazole 10 MG Oral Tablet (ABILIFY) 03/25/2021 12:00:00 AM EDT 10 mg Oral active Take 1 tablet by gabriella th daily [facility] Prazosin 2 MG Oral Capsule Prazosin HCl 2 MG Oral Caps ule (MINIPRESS) Prazosin HCl 2 MG Oral Capsule (MINIPRESS) 03/15/2021 12:00:00 AM EDT 2 mg Oral aborted Take [address] [facility] Escitalopram 5 MG Oral Tablet Escitalopram Oxalate 5 M G Oral Tablet (LEXAPRO) Escitalopram Oxalate 5 MG Oral Tablet (LEXAPRO) 03/15/2021 12:00:00 AM EDT 5 mg Oral aborted Take 5 mg by mouth [facility] Escitalopram 5 MG Oral Tablet escitalopram oxalate (LE XAPRO) 5 mg tablet escitalopram oxalate (LEXAPRO) 5 mg tablet 03/15/2021 12:00:00 AM EDT 5 mg oral active anxiety with depression T carmela 1 tablet (5 mg total) by mouth 1 (one) time each day with dinner. [facility] anxiety with depression Prazosin 2 MG Oral Capsule prazosin (MINIPRESS) 2 mg c apsule prazosin (MINIPRESS) 2 mg capsule 03/15/2021 12:00:00 AM EDT 2 mg oral active post traumatic stress disorder Take 1 capsule (2 mg total) by mouth 1 (one) time each day at night. [facility] post traumatic stress disorder Lurasidone Hydrochloride 80 MG Oral Tabl et Lurasidone HCl 80 MG Oral Tablet (LATUDA) Lurasidone HCl 80 MG Oral Tablet (LATUDA) 02/26/2021 12:00:00 AM EDT 80 mg Oral active Take 1 tablet by mouth d [facility] Loratadine 10 MG Oral Tablet Loratadine 10 MG Oral Tab let (CLARITIN) Loratadine 10 MG Oral Tablet (CLARITIN) 02/26/2021 12:00:00 AM EDT 10 mg Oral aborted Take 1 tablet by mouth daily [facility] topiramate 25 MG Oral Tablet Topiramate 25 MG Oral Tab let (TOPAMAX) Topiramate 25 MG Oral Tablet (TOPAMAX) 02/26/2021 12:00:00 AM EDT 75 mg Oral aborted Take 3 tablets by mouth daily [facility] Sertraline 50 MG Oral Tablet Sertraline HCl 50 MG Oral Tablet (ZOLOFT) Sertraline HCl 50 MG Oral Tablet (ZOLOFT) 02/26/2021 12:00:00 AM EDT 150 mg Oral aborted Take 3 tablets by mo [facility] topiramate 25 MG Oral Tablet Topiramate 25 MG Oral Tab let (TOPAMAX) Topiramate 25 MG Oral Tablet (TOPAMAX) 02/26/2021 12:00:00 AM EDT 75 mg Oral aborted Take 3 tablets by mouth daily [facility] Sertraline 50 MG Oral Tablet Sertraline HCl 50 MG Oral Tablet (ZOLOFT) Sertraline HCl 50 MG Oral Tablet (ZOLOFT) 02/26/2021 12:00:00 AM EDT 150 mg Oral aborted Take 3 tablets by mo ut daily [facility] Lurasidone Hydrochloride 80 MG Oral Tabl et Lurasidone HCl 80 MG Oral Tablet (LATUDA) Lurasidone HCl 80 MG Oral Tablet (LATUDA) 02/26/2021 12:00:00 AM EDT 80 mg Oral aborted Take 1 tablet by mouth d [facility] Loratadine 10 MG Oral Tablet Loratadine 10 MG Oral Tab let (CLARITIN) Loratadine 10 MG Oral Tablet (CLARITIN) 02/26/2021 12:00:00 AM EDT 10 mg Oral aborted Take 1 tablet by mouth daily [facility] Prazosin 2 MG Oral Capsule Prazosin HCl 2 MG Oral Caps ule (MINIPRESS) Prazosin HCl 2 MG Oral Capsule (MINIPRESS) 02/25/2021 12:00:00 AM EDT 2 mg Oral aborted Take 1 capsule by mouth nightly [facility] Pravastatin Sodium 20 MG Oral Tablet Pra vastatin Sodium 20 MG Oral Tablet (PRAVACHOL) Pravastatin Sodium 20 MG Oral Tablet (PRAVACHOL) 02/25 12:00:00 AM EDT 20 mg Oral active Take 1 tablet by mouth every evening [facility] montelukast 10 MG Oral Tablet Montelukast Sodium 10 MG Oral Tablet (SINGULAIR) Montelukast Sodium 10 MG Oral Tablet (SINGULAIR) 02/25/2021 12:00:00 AM EDT 10 mg Oral aborted Take 1 tablet by mouth [facility] Trazodone Hydrochloride 50 MG Oral Table t traZODone HCl 50 MG Oral Tablet (DESYREL) traZODone HCl 50 MG Oral Tablet (DESYREL) 02/25/2021 12:00:0 0 AM EDT 50 mg Oral active Take 1 tablet by mouth nightly as needed for Sleep [facility] Propranolol Hydrochloride 10 MG Oral Tab let Propranolol HCl 10 MG Oral Tablet (INDERAL) Propranolol HCl 10 MG Oral Tablet (INDERAL) 02/25/2021 12:00:00 AM EDT 10 mg Oral aborted Take 1 tablet by mouth Two Times Daily [facility] Trazodone Hydrochloride 50 MG Oral Table t traZODone HCl 50 MG Oral Tablet (DESYREL) traZODone HCl 50 MG Oral Tablet (DESYREL) 02/25/2021 12:00:0 0 AM EDT 50 mg Oral aborted Take 1 tablet by mouth nightly as needed for [facility] montelukast 10 MG Oral Tablet Montelukast Sodium 10 MG Oral Tablet (SINGULAIR) Montelukast Sodium 10 MG Oral Tablet (SINGULAIR) 02/25/2021 12:00:00 AM EDT 10 mg Oral aborted Take 1 tablet by mouth [facility] Pravastatin Sodium 20 MG Oral Tablet Pra vastatin Sodium 20 MG Oral Tablet (PRAVACHOL) Pravastatin Sodium 20 MG Oral Tablet (PRAVACHOL) 02/25 12:00:00 AM EDT 20 mg Oral aborted Take 1 tablet b y mouth every evening [facility] Prazosin 2 MG Oral Capsule Prazosin HCl 2 MG Oral Caps ule (MINIPRESS) Prazosin HCl 2 MG Oral Capsule (MINIPRESS) 02/25/2021 12:00:00 AM EDT 2 mg Oral aborted Take 1 capsule by mouth nightly [facility] Propranolol Hydrochloride 10 MG Oral Tab let Propranolol HCl 10 MG Oral Tablet (INDERAL) Propranolol HCl 10 MG Oral Tablet (INDERAL) 02/25/2021 12:00:00 AM EDT 10 mg Oral aborted Take 1 tablet by mouth Two Times Daily [facility] Prazosin 1 MG Oral Capsule prazosin (MINIPRESS) capsul e 2 mg prazosin (MINIPRESS) capsule 2 mg 02/24/2021 10:00:00 PM EDT 2 mg Oral active 2 mg, Oral, Nightly, First dose (after last modification) on 02/24/21 at 2200, For 27 doses
Check vital signs before administering
[facility] Medication administered onsite chlorproMAZINE (THORAZINE) injection 50 mg [id number] 02/23/2021 09:00:00 AM EDT 50 mg Intramuscular completed 50 mg, Intramuscular, Once, On 02/23/21 at 0900, For 1 dose [facility] Medication administered onsite diphenhydrAMINE (BENADRYL) injection 50 mg [id number] 02/23/2021 09:00:00 AM EDT 50 mg Intramuscular completed 50 mg, Intramuscular, Once, On 02/23/21 at 0900, For 1 dose [facility] Medication administered onsite diphenhydrAMINE (BENADRYL) injection 50 mg [id number] 02/22/2021 05:30:00 PM EDT 50 mg Intramuscular completed 50 mg, Intramuscular, Once, On 02/22/21 at 1730, For 1 dose [facility] Medication administered onsite chlorproMAZINE (THORAZINE) injection 50 mg [id number] 02/22/2021 05:30:00 PM EDT 50 mg Intramuscular completed 50 mg, Intramuscular, Once, On 02/22/21 at 1730, For 1 dose [facility] Medication administered onsite chlorproMAZINE (THORAZINE) 50 MG/2ML injection [id number] 02/22/2021 05:23:23 PM EDT completed Starti ng on 02/22/21 at 1723, For 1 dose
Chelsey Flores: cabinet override
[facility] Medication administered onsite diphenhydrAMINE (BENADRYL) 50 MG/ML injection [id number] 02/22/2021 05:23:16 PM EDT completed Starti ng on 02/22/21 at 1723, For 1 dose
Chelsey Flores: cabinet override
[facility] Medication administered onsite aripiprazole 400 MG Injection ARIPiprazo le ER (ABILIFY MAINTENA) extended- release injectable suspension 400 mg ARIPiprazole ER (ABILIFY MAINTENA) extended-release injectable suspension 400 mg 02/22/2021 03:45:00 PM EDT 400 mg Intramuscular completed 400 mg , Intramuscular, Once, On 02/22/21 at 1545, For 1 dose [facility] Medication administered onsite Loratadine 10 MG Oral Tablet loratadine (CLARITIN) tab let 10 mg loratadine (CLARITIN) tablet 10 mg 02/22/2021 09:00:00 AM EDT 10 mg Oral active 10 mg, Oral, Daily Standard, First dose on 02/22/21 at 0900, For 30 days [facility] Medication administered onsite Lurasidone Hydrochloride 80 MG Oral Tablet lurasidone HCl (LATUDA) tablet 80 mg lurasidone HCl (LATUDA) tablet 80 mg 02/22/2021 09:00:00 AM EDT 80 mg Oral active 80 mg, Oral, Kathleen ly Standard, First dose on 02/22/21 at 0900, For 30 days
Administer with food.
[facility] Medication administered onsite Sertraline 50 MG Oral Tablet sertraline (ZOLOFT) table t 150 mg sertraline (ZOLOFT) tablet 150 mg 02/22/2021 09:00:00 AM EDT 150 mg Oral active 150 mg, Oral, Daily Standard, First dose on 02/22/21 at 0900, For 30 days [facility] Medication administered onsite topiramate 25 MG Oral Tablet topiramate (TOPAMAX) tabl et 75 mg topiramate (TOPAMAX) tablet 75 mg 02/22/2021 09:00:00 AM EDT 75 mg Oral active 75 mg,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 A1C</td><td>Routine</td><td>04/05/2021 1:30 AM EDT</td><td></td><td> </td> 04/05/2021 01:30:00 AM [facility] SALICYLATE LEVEL <td>SALICYLATE LEVEL</td><td >STAT</td><td>04/05/2021 1:30 AM EDT</td><td></td><td> </td> 04/05/2021 01:30:00 AM [facility] LIPID PANEL <td>LIPID PANEL</td><td>Rout ine</td><td>04/05/2021 1:30 AM EDT</td><td></td><td> </td> 04/05/2021 01:30:00 AM [facility] COMPREHENSIVE METABOLIC PANEL <td>COMPREHENSIVE METABO LIC PANEL</td><td>STAT</td><td>04/05/2021 1:30 AM EDT</td><td></td><td> </td> 04/05/2021 01:30:00 AM [facility] Non-covered item or service NON-COVERED ITEM OR SERVICE 03/12 12:00:00 AM [facility] ECG ROUTINE ECG W/LEAST 12 LDS TRCG ONLY W/O I&R ELECTROCARD IOGRAM TRACING 03/27/2021 12:00:00 AM [facility] [address] SARS-COV-2 COVID-19 AMP PRB 03/27/2021 12:00:00 AM [facility] URNLS DIP STICK/TABLET RGNT AUTO W/O MICROSCOPY URINALYSIS A UTO W/O SCOPE 03/27/2021 12:00:00 AM [facility] COLLECTION VENOUS BLOOD VENIPUNCTURE ROUTINE VENIPUNCTURE 12:00:00 AM [facility] BLOOD COUNT COMPLETE AUTO&AUTO DIFRNTL WBC COUNT COMPLETE CB C W/AUTO DIFF WBC 03/27/2021 12:00:00 AM [facility] [address] DRUG SCREEN QUANTALCOHOLS 03/27/2021 12:00:00 AM [facility] [address] DRUG TEST PRSMV DIR OPT OBS 03/27/2021 12:00:00 AM [facility] MAGNESIUM ASSAY OF MAGNESIUM 03/27/2021 12:00:00 AM [facility] [address] ANALGESICS NON-OPIOID 1 OR 2 03/27/2021 12:00:[address] [facility] URINE TEST VISUAL COLOR CMPRSN METHS URINE PREGNAN CY TEST 03/27/2021 12:00:00 AM [facility] TROPONIN QUANTITATIVE ASSAY OF TROPONIN QUANT 03/27/2021 12:00:00 A M [facility] COMPREHENSIVE METABOLIC PANEL COMPREHEN METABOLIC PANEL 03/12 12:00:00 AM [facility] Infusion, normal saline solution , 1000 cc 03/27/2021 12:00:00 AM [facility] EMERGENCY DEPT VISIT HIGH SEVERITY&THREAT FUNCJ EMERGENCY DE PT VISIT 03/27/2021 12:00:00 AM [facility] URINALYSIS MICROSCOPIC ONLY MICROSCOPIC EXAM OF URINE 2020 12:00:00 AM [facility] EMERGENCY DEPARTMENT VISIT LOW/MODER SEVERITY EMERGENCY DEPT VISIT 03/20/2021 12:00:00 AM [facility] Psychiatric Diagnostic Evaluation (Non-Medical) 03/20/2021 12:00:00 AM EDT - 03/20/2021 12:00:00 AM EDT [facility] ([facility]) Psychiatric Diagnostic Evaluation (Non-Medical) 2020 12:00:00 AM EDT [facility] ([facility]) EMERGENCY DEPARTMENT VISIT MODERATE SEVERITY EMERGENCY DEPT VISIT 03/15/2021 12:00:00 AM [facility] Injection, ketorolac tromethamine, per 15 mg 12:00:00 AM [facility] THERAPEUTIC PROPHYLACTIC/DX INJECTION SUBQ/IM THER/PROPH/PAULY G INJ SC/IM 03/06/2021 12:00:00 AM [facility] FIBRIN DGRADJ PRODUCTS D-DIMER QUANTITATIVE FIBRIN DEGRADATI ON QUANT 03/03/2021 12:00:00 AM [facility] AMYLASE ASSAY OF AMYLASE 02/14/2021 12:00:00 AM [facility] LIPASE ASSAY OF LIPASE 02/14/2021 12:00:00 AM [facility] OFFICE OUTPATIENT VISIT 15 MINUTES 11/13 12:00:00 AM EDT - 11/13/2020 12:00:00 AM EDT [facility] ([facility]) OFFICE OUTPATIENT VISIT 15 MINUTES 11/13/2020 12:00:00 AM EDT [facility] ([facility]) INTRODUCE COVID19 VACC IN MUSCLE, PERC, NEW TECH 6 11/12/2020 12:00:00 AM [facility] Extended Individual Psychotherapy - 45 min 08/27/2020 12:00:00 AM EST - 08/27/2020 12:00:00 AM EST [facility] ([facility]) Extended Individual Psychotherapy - 45 min 12:00:00 AM EST [facility] ([facility]) Psychiatric Diagnostic Evaluation (Non-Medical) 08/23/2020 12:00:00 AM EST - 08/23/2020 12:00:00 AM EST [facility]) Psychiatric Diagnostic Evaluation (Non-Medical) 2020 12:00:00 AM EST [facility] ([facility]) Extended Individual Psychotherapy - 45 min 06/24/2020 12:00:00 AM EST - 06/24/2020 12:00:00 AM EST [facility] ([facility]) Extended Individual Psychotherapy - 45 min 12:00:00 AM EST [facility] Results ID Date Data Source [id number] 06/10/2021 08:11:18 PM [facility] Name Value Range Interpretation Code Description Data Stephanie rce(s) Supporting Document(s) Discharge Summary [facility] [id number]/AHRqgGDZzb6YsSIkvKLh5YCzuRZIbQ0PrPZO3bC3zEZP9YHsLDhRxWqJtYLEh lbm KcYyvHPpTgEEQhCbxQQoItQTygWvdgeZNeEK1GrLA2LRUhQ66pAQYqNVKzF9UpNZH6FRA+Ad8WHLVxxS OxFX3XSddR1J5Hk3fWGz6vYR0VuxboEpGFfTzXgtUbHAieARgNBWX5NOmOhxc2m39uujZe779QQa+Nqk l1djDHkhiWLbosoMB4nJTnOw15oipzw6GWPW0lstF/ q62fpuvff/V5l6eTl8Juqtv8uwvCN8bKftn4SvUg2A/+wvMzc/bnNpO7w1OWFVc0tMpkR34Tdisxq0aq mrPfjR+IeHJyirmboc15/3asYT1EX7ZUE0QfzSI8qukhYU7oqzICAfRjZaQN2CHqAcVFeKLwrPnYPO0h Di/noCmBK35oga3YWS1K3JI2FOJOakTz05AfNygTmN rQ5q/flu1XZ+kl3wpim1Nb1XI71ACiVUK6C50RS46aKJ+Lpc6j1KSd3fY83bcUacbM2zBGIgcyL/NGJJ 6BhTpgZg4LuQU7av665OrjePXQQd8dE4D53LyfLYUmUs154447IFDNSm9C+LHoHfhWm3a0dsK4St/Nikolas 65OqWXJ8lJH0oJf8xK+OpM3yQuqUB1rvs3r97xZT8r u4TPEqZ56PDYyaFWzud2Y33HEPFwoKiSkzsN7h/1QANAJfSe7Lw1rWEO6gaNHhAKcizs30ddg+tNpgZd 9vq7lGlm7uIN38GppCaSD5XLdyPvtvrfokl0PdF70cQpZauV4DfUvPyM2gOoNnYXuTc8v3yuT2hN2ITM IFFvyHW5ac6ka+wX9fisft0WaFRLzCObm1Ec/kKHhT 5Hi0Ln7PTFjL3dyK/6fTdHdVexZ5kqWuXCrfPb+t6xwi8jdgm22+pGaubK1IJlTsteNzJjFyQUaSc0sH OKKB2h65jsRsxsjhb4us/gPNKDc4S63xGiJzcPZePPAhCLCGrcOD/I88IljuZqe9gJnf2d772rMpp4e3 IgLIfw/UObFJre+sbER8X/9285lo4+m2F+r14W65Y1 q85UofccmU9vGoL1MB0nFw0LMx8CqzVQcMWmT7QJsXsflvdCtZMoh/ux8IlLFxVpzc6sUBG389L5JTdE TYHNP8y5p39Xzn1Uwo4PMVNPLmQGffa0taH+ChyLfUa12EciHD9fK+jRJDHmgwuN0shoh9o1Zs2RpM3E xJYesxmYkPBd5MgfHndho6iER1eASFlX5occxizaKy cvpt4Tf3fjOyfCiFi824nKRJqhFo5t4pQIMIFi+mf0X0eeUsyotaNhCtXzoj1GN4bq1QwXWhyRNyZxNN OXJ3HPEU3CPSG/iJGKlIZGm9h0X7nkD23o5SwnSfpBpsh/oCIeb7mUJXeKlwnGSCadpB7ZhkCzYXThEm D/l5vVA10iC/KRKvsnXrgBX/d1xWu0swKU3D5G+3qV BDTDMyegVc0/YC+d0yoWkykhTP+Simeon/HSM05Bk/6Q4I6ccX9/8mAuvLLXqSFvmYSdMhHEChYYz3nk6FN [file] AgICAgICAgICAgICAgICAgICAgICAgICAgICAgICAgICAgICAgICAgICAgICAgICAgICAgICAgICAgIC AgICAgICAgICAgICAgICAgICAgICAgICAgICANCiAgICAgICAgICAgICAgICAgICAgICAgICAgICAgIC AgICAgICAgICAgICAgICAgICAgICAgICAgICAgICAg ICAgICAgICAgICAgICAgICAgICAgICAgICAgICAgICAgICAgICANCiAgICAgICAgICAgICAgICAgICAg ICAgICAgICAgICAgICAgICAgICAgICAgICAgICAgICAgICAgICAgICAgICAgICAgICAgICAgICAgICAg ICAgICAgICAgICAgICAgICAgICANCiAgICAgICAgIC AgICAgICAgICAgICAgICAgICAgICAgICAgICAgICAgICAgICAgICAgICAgICAgICAgICAgICAgICAgIC AgICAgICAgICAgICAgICAgICAgICAgICAgICAgICANCiAgICAgICAgICAgICAgICAgICAgICAgICAgIC AgICAgICAgICAgICAgICAgICAgICAgICAgICAgICAg ICAgICAgICAgICAgICAgICAgICAgICAgICAgICAgICAgICAgICAgICANCiAgICAgICAgICAgICAgICAg ICAgICAgICAgICAgICAgICAgICAgICAgICAgICAgICAgICAgICAgICAgICAgICAgICAgICAgICAgICAg ICAgICAgICAgICAgICAgICAgICAgICANCiAgICAgIC AgICAgICAgICAgICAgICAgICAgICAgICAgICAgICAgICAgICAgICAgICAgICAgICAgICAgICAgICAgIC AgICAgICAgICAgICAgICAgICAgICAgICAgICAgICAgICANCiAgICAgICAgICAgICAgICAgICAgICAgIC AgICAgICAgICAgICAgICAgICAgICAgICAgICAgICAg ICAgICAgICAgICAgICAgICAgICAgICAgICAgICAgICAgICAgICAgICAgICANCiAgICAgICAgICAgICAg ICAgICAgICAgICAgICAgICAgICAgICAgICAgICAgICAgICAgICAgICAgICAgICAgICAgICAgICAgICAg ICAgICAgICAgICAgICAgICAgICAgICAgICANCiAgIC AgICAgICAgICAgICAgICAgICAgICAgICAgICAgICAgICAgICAgICAgICAgICAgICAgICAgICAgICAgIC AgICAgICAgICAgICAgICAgICAgICAgICAgICAgICAgICAgICANCjw/sIFwI3jmjDOsrjT4M0ihZx4FVy 8CYH2hz4UdNMKuORhjimQlZemLKlTwKKYzZbyDNoz8 MOqeAG4FrIYnQ6WtY5YvVQkjAS0IIHKoORLqfPXxCQQjUOSlGzL4MBGgYOnrPO7XcLDgTYjxCSMkMBOm HsEsFOUtKNGzRULbLVWoORRGKIYtBREiTwQeGFYdMAPoQVthKRNUZSU3VNDaIbDdMDLvNYNoXqBnSFNY NQL9EMGtUpKfUmRjGCVvHbnuBXQHXLAwRTIiPgJnUR teCE2It2HhwOPoES0BLd3UWjEiSU4wpt7XTaLuXBEdUmkRTew9GMlgGX0LjDUlaWE6FhInLZTGJhPlC5 puk6VpKeHnQYMLCRzoGX0Km8BgpJFuDTx+Yh9ZUX0oj8OwSUp4SqSlGL3cms9KTQoUXxWbT8CqtTbkMD Qgl5KnBOGgOKJJeT2hCCX0INA1IW8usYyawwkcBDZY r5ivDSwuCIFyVRXnHtqnHdClTMNjTQdiKCRQICfJBeByW6Zcn5ZrRtF9QYLcXcSrPJxmGDGoNhD4DN83 kIavAG3TPRHfPTFiHG09SOUqOLMlGt8OZl6GSwDiVS7pyz0YVaNfSKOaSvsEEmo7OSllGT4MeIMjN3Nt mGYon8qYJwWuJ9YCEEAzRRCiCo9MGCRfQuShCIEbWH gvLR3kGOOiAKWNaOktqiC6ON8KPC7cezKbBW6ZFsIjLb4jNi2VBiSvR8BrC6PqAVRwZKIBYRreDB1FMK vbZF5xXY0Vl5ZWpHMycD9gyh3SHBCdNUGtGigwvw6KFkmqN7S6mNfjRTPeYrRcZRBCRAfsZJ8EBFAuTI N6SDZ5MKYqSQHUCkNmH91vBD8GQ1Bse24lHeI9QRAi MzImJHacAJ17aTpphzNohIShpYngFT9SUi6+DQplbmRvYmoNCnhyZWYNCjAgNjUNCjAwMDAwMDAwMDAg BnX6XsUiPm6WTMRhWAUgOEZiMaYgEFVvPEMnDQjiQKGuDMc8NfeyCPBrGKXfQM0EMcPaYQBiKzgoNvCd PWKmBXUlhj3UGGWiLONvGDO7HaRcXSUbWDMeEExcJK VyGDY4MTU6MKRaLPRyUS3NAaJqUKDyGMNoDjRcZJAqDDXggo2JTIXbAXGjRFT0TMYyWIFqCRXoXTodVT IuIUC3JnH3PTVxEAIfVH0MRtOgZITgIMN0OFzqKCXaORVixl4NUOHkQHJvQxh8CSQaLCBdBCHrIJrpRU FfLJP8TbG4BRVhSSNcHP5ZFzLkFOBqMOW1BuVoMZLk CUGatc7VZLVoSZUbZOW3GMBnBJCdIVJuCElbLDWsPIGlRQaoHINyJBRoIM7MIhAvWORgQfX5CYqsZRSe IEBzwh7ZBPXpTZXkPXf6RGUtTFGhPFFhEBaeJHNwHXM0AQElKWFqNJYyQG3KIlAjBEGiOqy4FegbCWSf JANmog8REEFmBHFwCXN2FKSgINGjTFAvQZzyTVOuML NjBEGsDUUuHTEeJB5AUqOtQJMlEvA1JsbaBFRzNZPbky6ZIVGfNIMnMMQzEGXmOANhNRJxYCeqJXDkDI A3ArX7POUtLJMnUR5SKhToBAGdZlq0OyGeQZVjAEXbtk2FDQHqFXE2ApM0VJXhPMBxIHCfNRopDTFcCB GiYCvgNYGySJLeAZ9MGyCoTHIeDYT8QbTtQUQfJMFu kf6EDMFjZYT8KvirXuZwOLKmDDWmGGvnIUFcNGW1RhP9TJHgSWQpSW1CIwMfEVObHQe6YPTkPTScURNw jh7PXGUoJVO3ISLtXDNhHHSlMSFhYCzaDTYtTQBqGUM6XIMvXLSqIQ6ALyJzGIBzYGE6TmupDPLwLYEd sv9URCUyTLI2Yzw1FFStRPEkSNQmOQpvYYQuLDGgMY C4DPTfXAIyBC4VFkXtBUNoUDJpUSEzTLFcKGXysv6RHJTpTPG8HVYlNNKmNDDjUAPbLZscGDOtONU9OW D6ICCaIUGuLH1LMcDtTYOnOQN6EfSdTNEcVYChnx6RSEBqFFM5DBQ6PxJvXBPxPJCiYXnzCUZqTYU8DM X0BINqXFRmNT2BZcNxCIKkXCP8FLOiCZUjPCZmwu6L JLVjQBT5KsVgOPYjLUNmBQTpCDbgFIUkPJD8VeS1BVLwTORlAQ2CDtXeUVStVZqjLjznZUYoVNQwah0W DSMbULY0GRP8NaArOKZzZTLrMXrjJBFfBID0WVQcODKaAJAsDS5KWsSfQPMtWsk1VCuuAQOsLWBdna1P MLHkNSF7NYJ8KiYuWYAwYGKvMKlmYJPvIZagDRs7ZN UxOJNvHB7GOcUcKDHfDrO8CLObSXIeGKXadq4TAXWtRIR7MHj2XAHfNBDsFNKfYWezHDApTQd5AkG1UW EzPGClYG1HKvOhFWTgMvRfYdiyZCQxKDYcdd3TGFTlRAC4UeG7HBLlKSPiOQJbQBpxBTXpVAl5WIKsZF ImFDXnCD3WDtMwVCRmRzA6ABNtBXTpWWUrky2HTNFc JFY1Zuz5EIIaCGOqEWHeNVsqXASyCJz6MHO8FTQwCKQcMX4HVpYjHIRsOrrxGHCfWJKnAMGivm3UDQAw JRR3SgngVuNmUYBlBVTmEYqoXWVhXYr9JaWsOAQkQXZnQZ8DJpMpPOUgZjdnHkJhNPTwFNFazw6JTJAt PVO0LMM8FcTpZMKqGLCmIUl2viBytZLjZUr0XM5MJ3 MjaaCxHkGDGq0Fz623SLQ9FZZpEd2JL6xtMo2tOJIyVHCTSd5YOWg0YyLwQUUjCzscJtZhRCW8LqQ3Km AoSOKiBfm7PnBiU6F+YNd5O1DdVgRyNMHdLFN0GwBxOjUqMyFwY6I2JBGwRCFlEo6cBNYYQo2+DQpzdG QeeRrxEOJAKfm2VvZ4CUujYESVHj0O ID Date Data Source [id number] 06/10/2021 01:01:36 PM EST [facility] NT INFORMATIONPatient MRN Name Date of Age Gend*PT [id number] Jelena Hatchkayla 00 20 years M CPEPPT Location Admission Date/Time Visit ID Attending ProviderMANJU 06/10/21 0915 --- Magy Diamond MD([id number]) EPI ID CSN Admitting Provider [id number] ---Attestation signed by Magy Diamond MD at 06/10/2021 1:01 PMInitial time of commencing Psychiatrist [id number] encounter with patient:06/10/21 1005 : Magy Diamond MDI have examined the patient, [id number], and have personally participated inperforming a psychiatric diagnostic examination. I have participated inperforming or have personally reviewed the patients psychosocial assessment andmedical examination. I have assessed the patient s treatment needs based uponpsychiatric, physical, social and functional evaluations and have reviewed theplan with the patient.The patient appears: calmI have discussed the treatment plan with the patient and team ----CPE PSYCHIATRIC ASSESSMENTPatient Name: [facility] Galindo at [facility]: 06/10/21 0840Psych [facility] First Contact: Yes (06/10/21 09 : Aysha Valles NP)Psychiatrist First Contact: Yes (06/10/21 1005 : Magy Diamond MD)Chief ComplaintChief ComplaintPatient presents with Suicidal Pt arrives with [place]. [facility]". Called the ambulance due to increasedanxiety and "chest pain". Stated she was suicidal during transport to hospitalwith a plan to overdose on perscribed medication. Currently feels suicidal.Since arrival pt has been requesting to stay. Denies HI/AVH.Current StressorsCurrent Stressors: Pyschiatric Symptoms, Housing ProblemsHistory of Present IllnessThe patient is a 20-year-old transgender individual (biologicalfemale, identifies as male gender, prefers he him pronouns, preferred name"Daisy") with a history of borderline personality disorder who presents to [facility] a transfer from [facility] ED after presenting to their facilityaccompanied by EMS with vague reports of suicidal ideation. Today, the patientwas fully cooperative with interview and able to provide a reliable account ofrecent and past history. Patient explains that he was discharged from [facility] () yesterday and sent to a respite facility([facility] Patient states that he had a "anxiety attack" while at [facility] and EMS was contacted (patient was only at the respite facility for acouple or hours). Feels that anxiety was a result of an argument with brotherwhich occurred via telephone. He states that anxiety symptoms has resolved,admits to chronic suicidal ideation but no active plan or intent to harm self orothers. No history of genuine suicide attempts. Patient is pleasant andcooperative, engaging with staff and peers on the unit. Observed eating a largefood tray. Appears comfortable and familiar in the hospital environment. Atthis time, patient is requesting discharge, would like [facility] in [place], [place] where he is welcome to stay. Patient is able toidentify positive coping skills that he will utilize in the future when anxietysymptoms increase. He exhibits future and goal oriented thinking, identifiesprotective factors and reasons for living. Patient has an extensive outpatienttreatment team in [facility] including an AOT coordinator (Madelin Becerra)as well as a conference center manager (Jeanne). He has upcoming appointments with therapistand psychiatrist at [facility] which he plans toattend, states that this will facilitate him being placed in to a supportiveapartment program which he very much desires. RN spoke with patient's AOTcoordinator who is very familiar with the patient has worked with him for manyyears, there are no safety concerns. Patient has been calm and cooperative atCPEP, exhibits clinical features of personality disorder with borderline traitswhich he has a well documented history of. Denies symptoms of major depression,there is no evidence of any acute anxiety or distress. No psychosis or maniasymptoms present. At this time, there is no indication for psychiatricadmission.Treatment planning goals to be addressed and resolved with the social welfare administrator,see notes.Patient InfoHistory provided by: patient, medical recordsLanguage cook helper used?: NoHPI: Mental Health ProblemPresenting Symptoms: anxietyPatient accompanied by: (sent [place] for [place])Degree of incapacity (severity) : mildTiming: sporadicProgression: improvingChronicity: recurrentContext : drug abuse, Current interpersonal stressorTreatment compliance: untreatedRelieved by: antidepressantsIneffective Treatments: none triedAssociated symptoms: anxietyRisk factors: recent psychiatric admission (hx borderline personality d/o\\)Care Coordinati on/CollateralHistoryPast Psychiatric HistoryOutside Treatment HistoryTreatment History Location Date of Last Tx Type of Tx Tx Reason/Dx Tx Length of Stay Tx helpful?Drug/Alcohol Rehab? Records Requested? Comments [facility] March 2019 Inpatient Suicidal thoughts 24 hours No [facility] 2017 Inpatient Suicidal thoughts 1 year [facility] 2007 Inpatient SI a few months [facility] current (05/24/21) Outpatient individualtreatment SI, BPD about a year Yes Not for rehabPast Suicide / Self Harm HistoryTitleDocumented / Reviewed: 06/10/2021 9:06 AMSelf Harm History :No Current Self Harm: Yes SELF INJURY TYPE APPROX DATE/AGE COMMENTS Cutting 06/15/19 piece of plastic Cutting 04/20/21 piece of metalSuicide History :No Current Suicide Attempt: YesSUICIDE METHOD APPROX DATE/AGE MEDICAL CARE? SUICIDE REASONOther (Comment) 3 weeks ago drank mouth washPsychosocial AssessmentSubstance Use SUBSTANCE ROUTE OF ADMINISTRATION AGE AT FIRST USE SUBSTANCE LAST TIME USEDSUBSTANCE PATTERN OF USE SUBSTANCE PATTERN OF ABSTINANCE Comments marijuana oral 06/05/21 "occasionally" 2 yearsFamily HistoryFamily HistoryProblem Relation Age of Onset Bipolar disorder Mother ADD / ADHD BrotherSocial HistorySocial HistoryTobacco Use Smoking status: Never Smoker Smokeless tobacco: Never UsedVaping Use Vaping Use: Every day Substances: Nicotine Devices: Pre-filled or refillable cartridge, Pre-filled podSubstance Use Topics Alcohol use: Not on file Drug use: Not on fileSocial HistorySubstance and Sexual ActivitySexual Activity Not CurrentlyRelationships and Living SituationRelationship StatusRelationship Status: Single, Never MarriedParental StatusParental Status: No childrenResidence/HomelessResides in : Private ResidenceLives With: Unrelated OthersWas the patient homeless at any time within the past 6 months?: NoEducation / Employment / HistoryAcademicIs the patient attending school or receiving tutoring or instruction?: NoHighest Grade Achieved: 10th GradeFinancial/EmploymentCurrent Income: SSICurrent Employment Status: UnemployedMilitary HistoryMilitary History: NoLegal HistoryLegal HistoryHistory of Legal Problems: YesCurrent [place] or Probation: NoChildhood Abuse/NeglectChildhood Abuse/NeglectWas patient abused or neglected as a child/adolescent?: YesSpecify abuser: Adoptive Parents, SiblingSpecify type of abuse/neglect: Sexual, PhysicalAdult Abuse/NeglectIs/Was the patient abused or neglected as an adult?: NoOngoing Safety ConcernsOngoing Safety Concerns : NoScreeningSafe in Home: YesSafe in Relationship: YesMedical/Surgical HistoryPast Medical History:Diagnosis Date ADHD Bipolar 1 disorder Borderline personality disorder PTSD (post-traumatic stress disorder)History reviewed. No pertinent surgical history.Review of SystemsPsychiatricPsychiatric: Anxiety, Behavioral ProblemsReview of SystemsAllergic/Immunologic: No pertinent findingsCardiovascular : No pertinent findingsConstitutional Symptoms: No pertinent findingsEndocrine: No pertinent findingsEars, Nose, Mouth and Throat: No pertinent findingsEyes: No pertinent findingsGastrointestinal: No pertinent findingsGenitourinary: No pertinent findingsHemeatological/Lymphatic: No pertinent findingsMusculoskeletal: No pertinent findingsNeurological : No pertinent findingsRespiratory: No pertinent findingsSkin: No pertinent findingsVital SignsBP 135/87 | Pulse 86 | Temp 97.4 F (Oral) | Resp 16 | Ht 5' 6" | Wt (!)104.3 kg | LMP 06/09/2021 | SpO2 96% | BMI 37.12 kg/m Physical Dexterity CommentsMuscle Strength and Tone: Strength and tone within normal limitsGait and Station: Gait steady and station within normal limitsPsychiatric Specialty ExaminationAdult Initial Mental Status Exa mConstitutional Exam: Appears Stated AgeBuild/Stature: WNL, OverweightPosture: WNLHygiene/Grooming: Fair HygieneClothing: Hospital AttireEye Contact: GoodSpeech: ClearPsychomotor Activity: WNLMood: Good, FineAffect: FullPerceptual Disturbances: NoneDelusions: NoneThought Process: Linear and LogicalThought Content: WNLSuicidal Ideation: Denies suicidal thoughtsHomicidal Ideation: Denies homicidal thoughtsRemote Memory: IntactRecent Memory: IntactInsight: GoodJudgment: GoodOrientation: Appropriately Oriented [id number] Toward Examiner: CooperativeAssociations: No loosening evidentFund of Knowledge: Fa irConcentration: GoodAttention Span: GoodCognition: IntactLanguage: Fluent in EnglishAdult Risk of Suicide Screenin. In the past three months, have you wished you were or wished you couldgo to sleep and not wake up?: No2. In the past three months, have you actually had any thoughts of killingyourself?: No (chronic suicidal thoughts, no active suicidal thoughts with planor intent in the past 3 months)6. Have you done anything, started to do anything, or prepared to do anything toend your life?: No (Chart review reflects the patient "drank mouthwash" in thepast but this does not seem to be a genuine suicide attempt per patientdescription)7.Have you made a suicide attempt in your lifetime (took action to end yourlife)? : No (Chart review reflects the patient "drank mouthwash" in the past butthis does not seem to be a genuine suicide attempt per patient description)Risk Assessment - Risk FactorsDiagnoses & Symptoms of Concern: : Borderline & Antisocial Personality DisorderPsychiatric & Substance Use Treatment History:: (Fully established withextensive treatment providers in [facility])Family & Social Factors (Distal Factors):: (denies)Access to Lethal Means:: (denies)Precipitants/Activating Events: : (denies)Risk Assessment - Protective FactorsProtective Factors:: Access to clinical interventions, Supportive social networkor family, Expression of hope for the future, Identification of reasons forliving, Positive current therapeutic relationship, Cultural, spiritual, or moralattitudes against suicide, Fear of or dying, Sense of responsibility tofamily, pets, or others, Other protective factorsSuicide Risk Level:: LowClinical Formulation:: Patient is not suicidal, she has no history of genuinesuicide attempts, she exhibits future and goal oriented thinking, identifiesprotective factors and reasons for living, has an extensive outpatient treatmentteam was actively involved with her, no signs or symptoms of psychosis presentFirearmsWas threat made to harm self/others with a firearm: NoDoes the patient own or have access to firearms: NoDiagnosis1. Borderline personality disorder2. Cannabis abuseLabs ResultsLabs Reviewed - No data to displayAssessment / Treatment Plan / Discharge PlanAssessment / Discharge PlanningPlan/Assessment #1: Patient seen and evaluated, treatment plan goals to beaddressed and resolved with social welfare administrator, see notesPlan/Assessment #2: Continue home medication regimen, no changes indicated atthis timePlan/Assessment #3: Chart reviewed, supportive therapy employed, uzairatera lobtained from patient's AOT coordinator who works with patient closely over thepast many years and does not have any acute safety concerns (see RN note)General Treatment Plan - GOAL: The patient will have stabilization of presentingsymptoms in order to progress towards discharge from [facility] and have identifiedthe resources available until outpatient follow up.OBJECTIVE: The patient will be assisted with support resources post discharge:While at [facility], the RN or plastic worker will have a one on one conversation withthe patient to verbally identify their individual supports post discharge.,While at [facility], the RN or Electronics Research Engineer will have a one on one conversation withthe patient to verbally identify what follow up resources will be mostbeneficial to the patient., While at [facility], the RN or Electronics Research Engineer will have aone on one conversation with the patient to verbally identify whom to contactfor collateral information and obtain patient consent in writing., [facility], the RN or Electronics Research Engineer will have a one on one conversation with thepatient to verbally identify any of their perceived and/or actual barriers topost discharge care., While at [facility], the RN or Electronics Research Engineer will have a one onone conversation with the patient to verbally explain the Mobile Crisis OutreachTeam and encourage patient to follow up with an appointment.Anxiety Treatment Plan - GOAL: The patient will have stabilization ofpresenting symptoms in order to progress towards discharge from [facility] and haveidentified the resources available until outpatient follow up.OBJECTIVE: The patient will have reduced overall frequency, intensity, andduration of anxiety so that activities of daily living are not impaired while atCPEP.: While at [facility], the RN or plastic worker will have a one on oneconversation with the patient to verbally identify their triggers for anxiety.,While at [facility], the RN or Electronics Research Engineer will have a one on one conversation withthe patient to educate on coping strategies (such as self-talk, journaling,guided imagery, deep breathing, or counting to ten).Progress Towards Discharge Treatment planning goals to be addressed and resolved with the social welfare administrator,see notes.MDMNumber of Diagnosis or Management Options:[] Minimal [] [...] No changes [] No side effectsBilling Code: [id number] signed byESTHER Villegasurse Foksvqyuuxoa77/30/21 1033 Name Value Range Interpretation Code Description Data Stephanie rce(s) Supporting Document(s) ID Date Data Source [id number] 06/10/2021 04:46:28 AM EST [facility] Name Value Range Interpretation Code Description Data Stephanie rce(s) Supporting Document(s) URINE WBC (0-5) [facility] URINE RBC (0-2) [facility] EPITHELIAL CELLS 1+ [HPF] [facility] BACTERIA 2+ [HPF] [facility] MUCUS 1+ [HPF] [facility] AMORPHOUS 1+ [HPF] [facility] ID Date Data Source [id number] 06/10/2021 04:08:09 AM EST [facility] Name Value Range Interpretation Code Description Data Stephanie rce(s) Supporting Document(s) COLOR [facility] PERFORMED AT [address] [facility] [address] APPEARANCE [facility] SPEC GRAV URINE 1.036 (1.003-1.030) H Lab [facility] ce [facility] PH URINE 5.5 (5.0-7.5) Lab [facility] LEUK ESTERASE (NEG) Lab [facility] CRITERIA FOR CULTURE NOT MET.CULTURE CAN BE ADDED WITHIN 36 HOURS OFCOLLECTION. NITRITE URINE (NEG) [facility] PROTEIN URINE (NEG) A [facility] GLUCOSE URINE (NEG) Lab [facility] KETONE URINE (NEG) Lab [facility] UROBILINOGEN 0.2 mg/dL (0-1.0) [facility] BILIRUBIN URINE 1+ (NEG) A [facility] INTERFERING SUBSTANCES MAY CAUSE FALSEPO SITIVE BILIRUBIN, WHICH HAS BEENSHOWN TO BE CLINICALLY INSIGNIFICANT.CORRELATE WITH OTHER TESTING. BLOOD/HGB URINE 3+ (NEG) A [facility] o f [facility] ID Date Data Source [id number] 06/10/2021 12:11:00 AM EST [facility] Name Value Range Interpretation Code Description Data Stephanie rce(s) Supporting Document(s) SARS coronavirus 2 RNA [Presence] in Res piratory specimen by CORDELL with probe detection NOT DETECTED [facility] This lab was reported by [facility]. ID Date Data Source [id number] 06/10/2021 02:22:02 AM EST [facility] Name Value Range Interpretation Code Description Data Stephanie rce(s) Supporting Document(s) SPECIMEN DESCRIPTION [facility] INFLUENZA A (NEG) Lab [facility] INFLUENZA B (NEG) Lab [facility] RSV (NEG) Lab [facility] COMMENT Lab [facility] THE [place] FDA HAS MADE THIS TEST AVAILABL EUNDER AN EMERGENCY USE AUTHORIZATION(EUA) FOR THE DETECTION AND/OR DIAGNOSISOF THE VIRUS THAT CAUSES COVID-19.PERFORMED AT [address] [facility] [address] COVID19 RESULT (NDET) Lab [facility] THIS ASSAY AMPLIFIES AND DETECTSTHE TARG ET RNA USING REAL-TIME PCR.TESTING PERFORMED ON CoNarrative GENEXPERTNEGATIVE 2019_NCOV RT-PCR RESULTS DONOT PRECLUDE 2019_NCOV INFECTION ANDSHOULD NOT BE USED THE SOLE BASISFOR PATIENT MANAGEMENT DECISIONS. FIRST TEST [facility] SYMPTOMATIC [facility] DATE OF SYMPT ONSET [facility] HOSPITAL[facility]ED [facility] [place] [facility] CONGREGATE CARE SET [facility] ID Date Data Source [id number] 06/10/2021 01:57:28 AM EST [facility] Name Value Range Interpretation Code Description Data Stephanie rce(s) Supporting Document(s) SALICYLATE <2.8 mg/dL [facility] GREATER THAN 30.0 MG/DL IS TOXIC ID Date Data Source [id number] 06/10/2021 01:57:28 AM EST [facility] Name Value Range Interpretation Code Description Data Stephanie rce(s) Supporting Document(s) TOTAL PROTEIN 8.1 g/dL (6.4-8.2) [facility] ALBUMIN 3.6 g/dL (3.5-4.6) [facility] GLOBULIN 4.5 g/dL (2.7-4.3) H [facility] ALB/GLOB RATIO 0.8 RATIO [facility] BILIRUBIN,TOTAL 0.3 mg/dL (0.0-1.0) [facility] PLEASE NOTE:Total bilirubin results may be falselyelevated in patients taking Eltrombopag. BILIRUBIN,CONJUGATED <0.1 mg/dL (0.0-0.3) [facility] BILIRUBIN,UNCONJ. (0.0-0.7) [facility] ALKALINE PHOSPHATASE 105 U/L (45-117) [facility] AST (SGOT) 45 U/L (11-39) H [facility] ALT (SGPT) 62 U/L (12-78) [facility] ID Date Data Source [id number] 06/10/2021 01:57:28 AM EST [facility] Name Value Range Interpretation Code Description Data Stephanie rce(s) Supporting Document(s) LIPASE 56 U/L (65-230) L [facility] ID Date Data Source [id number] 06/10/2021 01:57:28 AM EST [facility] Name Value Range Interpretation Code Description Data Stephanie rce(s) Supporting Document(s) ETHANOL <3 mg/dL (0-3) [facility] ID Date Data Source [id number] 06/10/2021 01:57:28 AM EST [facility] Name Value Range Interpretation Code Description Data Stephanie rce(s) Supporting Document(s) SODIUM 139 mmol/L (136-145) [facility] POTASSIUM 3.7 mmol/L (3.6-5.2) [facility] CHLORIDE 107 mmol/L (100-108) [facility] CO2 25 mmol/L (22-31) [facility] ANION GAP 7 mmol/L (7-16) [facility] UREA NITROGEN 17 mg/dL (7-24) [facility] CREATININE 0.46 mg/dL (0.60-1.00) L [facility] BUN/CREAT RATIO 37.0 RATIO (10.0-20.0) H [facility] GLUCOSE 92 mg/dL (70-99) [facility] CALCIUM 9.0 mg/dL (8.4-10.2) [facility] GFR >60 ml/min/1.73m2 (>59) [facility] GFR ( AMER) >60 ml/min/1.73m2 (>59) [facility] GFR INTERPRETATION [facility] --NORMAL KIDNEY FUNCTION OR MILD DISEASE - GFR >OR= 60CHRONIC KIDNEY DISEASE - GFR 15 - 59RENAL FAILURE - GFR <15 Est. GFR calculation based on the MDRDstudy equation, which assumes a steadystate for creatinine. Est. GFR should notbe used for medication dosing. ID Date Data Source [id number] 06/10/2021 01:57:28 AM EST [facility] Name Value Range Interpretation Code Description Data Stephanie rce(s) Supporting Document(s) TROPONIN I <0.05 ng/mL (<0.05) [facility] [place] Less than 0.05: Myocardial injury unlike lyGreater than or equal to 0.05: Highly suggestive of myocardial injuryCorrelation with rise and/or fall ofserial troponins, clinical symptomsand ECG changes is necessary. ID Date Data Source [id number] 06/10/2021 01:57:28 AM EST [facility] Name Value Range Interpretation Code Description Data Stephanie rce(s) Supporting Document(s) ACETAMINOPHEN <2.5 ug/mL (10.0-30.0) L [facility] ID Date Data Source [id number] 06/10/2021 01:54:28 AM EST [facility] Name Value Range Interpretation Code Description Data Stephanie rce(s) Supporting Document(s) HCG, QUAL. SERUM (NEG) [facility] ID Date Data Source [id number] 06/10/2021 01:35:52 AM EST [facility] Name Value Range Interpretation Code Description Data Stephanie rce(s) Supporting Document(s) WBC 8.6 10*3/uL (4.1-11.0) [facility] [place] RBC 4.49 10*6/uL (4.00-5.40) [facility] HGB 13.1 g/dL (12.0-16.0) [facility] HCT 39.3 % (36.0-47.0) [facility] MCV 87.7 fL (80.0-95.0) [facility] MCH 29.2 pg (27.0-32.0) [facility] MCHC 33.3 g/dL (32.0-36.0) [facility] RDW 13.7 % (10.5-14.5) [facility] PLT 249 10*3/uL (150-450) [facility] MPV 8.5 fL (7.1-10.7) [facility] NEUT % 65.2 % (35.0-75.0) [facility] LYMPH % 25.3 % (16.0-52.0) [facility] MONO % 8.5 % (0.0-8.0) H [facility] EOS % 0.8 % (0.0-5.0) [facility] BASO % 0.2 % (0.0-4.0) [facility] NEUT # 5.6 10*3/uL (1.8-7.7) [facility] LYMPH # 2.2 10*3/uL (1.2-4.8) [facility] MONO # 0.7 10*3/uL (0.0-0.8) [facility] Eosinophils [#/volume] in Blood by Automated count 0.1 10*3/uL (0.0-0 .5) [facility] BASO # 0.0 10*3/uL (0.0-0.2) [facility] ID Date Data Source [id number] 06/10/2021 04:28:56 AM EST [facility] Name Value Range Interpretation Code Description Data Stephanie rce(s) Supporting Document(s) AMPHETAMINES,URINE (NEG) [facility] BARBITURATES,URINE (NEG) [facility] BENZODIAZEPINE,URINE (NEG) [facility] CANNABINOIDS,URINE (NEG) A [facility] COCAINE,URINE (NEG) [facility] OPIATES,URINE (NEG) [facility] NOTE: Oxycodone is not sufficientlydetec hellen by this screening assay. A moresensitive assay is available upon request. PHENCYCLIDINE,URINE (NEG) [facility] PLEASE NOTE: [facility] ARE REPORTED POSITIVE WHEN THE RESULT SEXCEED THE THRESHOLD (CUTOFF) INDICATED. ALIST OF POTENTIAL INTERFERENCES FOR EACHMETHOD CAN BE MADE AVAILABLE UPON REQUEST.CONFIRMATION OF A POSITIVE SCREEN CAN BE PERFORMED BY A REFERENCE LABORATORY IFREQUEST IS MADE WITHIN 48 HRS.* * * * * * * * * * * * * * *THIS ASSAY IS NOT INTENDED TO BE USED FORMONITORING MEDICATION COMPLIANCE. ID Date Data Source [id number] 06/08/2021 11:43:[address] [facility] Name Value Range Interpretation Code Description Data Stephanie rce(s) Supporting Document(s) History and Physical [facility] NEJSFu5kCzOUMgKx23/IELsvWUUdk6XjJElmEYs4TGlhLWNcS6VlTYZ1aR5vSUJ4IUjTEgVmZoToAEK7 lbm [file] ICAgICAgICAgICAgICAgICAgICAgICAgICAgICAgIC AgICAgICAgICAgICAgICAgICAgICAgICAgICAgICAgICAgICAgICAgICAgDQogICAgICAgICAgICAgIC AgICAgICAgICAgICAgICAgICAgICAgICAgICAgICAgICAgICAgICAgICAgICAgICAgICAgICAgICAgIC AgICAgICAgICAgICAgICAgICAgICAgICAgDQogICAg ICAgICAgICAgICAgICAgICAgICAgICAgICAgICAgICAgICAgICAgICAgICAgICAgICAgICAgICAgICAg ICAgICAgICAgICAgICAgICAgICAgICAgICAgICAgICAgICAgDQogICAgICAgICAgICAgICAgICAgICAg ICAgICAgICAgICAgICAgICAgICAgICAgICAgICAgIC AgICAgICAgICAgICAgICAgICAgICAgICAgICAgICAgICAgICAgICAgICAgICAgDQogICAgICAgICAgIC AgICAgICAgICAgICAgICAgICAgICAgICAgICAgICAgICAgICAgICAgICAgICAgICAgICAgICAgICAgIC AgICAgICAgICAgICAgICAgICAgICAgICAgICAgDQog ICAgICAgICAgICAgICAgICAgICAgICAgICAgICAgICAgICAgICAgICAgICAgICAgICAgICAgICAgICAg ICAgICAgICAgICAgICAgICAgICAgICAgICAgICAgICAgICAgICAgDQogICAgICAgICAgICAgICAgICAg ICAgICAgICAgICAgICAgICAgICAgICAgICAgICAgIC AgICAgICAgICAgICAgICAgICAgICAgICAgICAgICAgICAgICAgICAgICAgICAgICAgDQogICAgICAgIC AgICAgICAgICAgICAgICAgICAgICAgICAgICAgICAgICAgICAgICAgICAgICAgICAgICAgICAgICAgIC AgICAgICAgICAgICAgICAgICAgICAgICAgICAgICAg DQogICAgICAgICAgICAgICAgICAgICAgICAgICAgICAgICAgICAgICAgICAgICAgICAgICAgICAgICAg ICAgICAgICAgICAgICAgICAgICAgICAgICAgICAgICAgICAgICAgICAgDQogICAgICAgICAgICAgICAg ICAgICAgICAgICAgICAgICAgICAgICAgICAgICAgIC KsNWZpHJDjARImUESkJKSuKEGyPIRmEPSiJZYnYGKfUAFwPRYiUHYrFBRuGBWiNPRzMWKnNKg4S6kkYS ZpXALeLZ4sBUt8Sz7+FVhMPtFcDMO0zkSwuI9HBJ3cc7NnVAvnHNSmm3OjZDc2GV5NTAQeUHjqPZ8SYQ igzt3BIOUaLYUmtYAVv5atJqCrJLS2JVJcNmyqXD0P JTWhJ4dmzfFvDKXpTBNHGWplKUGQHTjlIAKFCUEgTIFuYjIdJMooQF2Mo8WvwQF2TNg+Sf7JMM0qg9Zm CXdiStInZS3vcj8FARpEVbMqA1AsytR1YFK7UCHwJx8UCANjFYDzaDVcDCEiROVSVsHvC6XtiR26JDUZ Cj4+CGowtbRiImiCBqD2CPNsu4DiNEw0UJ5OQFVmTC l1cZFmHFQSXWR6VD7xR55zUCOeLME3fCgfOM3AMSS2HIHfOoC4LfZjGbJrFJG4TfFcTV9kEUmlVZ3NYN F5ORjnNWJgYSOaQ8tJCiBiNPZeYxOkvUmyNK8YFlJpE7NwzzQrxZIpGmNpTYTONj7+DQplbmRvYmoNCj K4KIBeg7WfCVa4RR3YOMTiTAgeNK1YZXEgaH8tDYjk RN2LCzLxGUNrJBUZIvYtI70hjDZpFMh4Y1CxHoSwMKVgOmicDEIeSYmfDkNuVRRfPmGyIPeuIR7+ID4+ PMygAM3FHTdvlgFcBTRaOf7FDZNrZUJvVY2wCDAsOEXhN2V6cKhsIHBTBaXrV0ajfkalFF2aJGUrF925 dZnowkQhCNH4XYRqNt1INRCuDUY0WXLruOLsZbYrYP OGXWpoPW7VbQEaKMY4hI0eZQabCIIeJFZtN4uJThLzyIvkGO02mEgioyNtgJHbSCn+Jx7JOF0xu3GvUR x6cjZwMVycSHVoXItrASVsEXYkBWHeOWQ3FJI5DEFEYhSsKIEbVSNvQTndKMJbTCJnny0PCLJgRHOkXx B6RAGdNBPsFUOjTHymEJZbESM6YUNhVMEoXPCpYD8S KsTpWTSmLYFgIZffUMOuZTKgzc9YVMWuFTMeRqhnKOMxVGDvRCBeQGpdBNPaFBI7IIPeGPNpVNOrVK5E VxBnCONpISbpFVhjHJSiDQXvkk0ZWHNwOZXlZuZ9TJZbQPJtTAOsXRtcDMSaEHJgERk2ZRJaHBWcCY3D HzYqVMGaHGOoWuckLPWqUEHeeb0DTMRbZFZoRcy8PU ZvWWZaZBTkCHvgOJDrHDQ8WWblDHJkMVCkBT9MSaDoNTPuZERcLUTmBDAzCNJkdk9LPUOyPMXmCCM1TT FzJOMuGLWkXQpaKZClNND6SDQsERCaZMKjNQ4KSaYvVNVpDKQlKOJtUDMuGVCrnt4WFQSkZVLeWtU1Fy MlHDTwZBUjCGfnNXOtJER6VgpgRZAtZRRqZO9DNkJd OYMwWRv9XNSnQPOyOHFnmc6WREKdAIZnXlsuRtPyKUOmMHHxYCeyNHDbNST9VIEhJFChVUKyGS1HEaNc YLTjYZysGdboMFGlBUIvyu6EIJWqVPCjJFO7AQBxWXFoMMKmGHawANUqWVH4QLqpXUOnHALzQJ1FHkLp TKHsTvO7ZXYdROYgQJAdgn3GJCCgYGWkXPX4KoMgMG HbHXKeSMnkDNJtFZPpHWK9ILAgMRAsXW1JNdBxPPTyCuT2BOReUEYmCBQzwq2GHYPbWFHbCdKhWCAnCA LsYEIwGEqgESPsXXO8CwSfQMHzVAKwMI4KBjUxNSMsFpM2BloyHVYtYFXycq0OZUNzQGSoGsEwPWZxVQ HlHPEfCMisMXAcAOQ8ZOErGGLvGXStYQ8OCzWmKTPl HnlqHWHdRLLgPSErka3HGLCdQVNvXsBuWXEzAWAmJKTlYEpgHPNnCNN0GfqxAWVrRJQxGQ6VDnIiWZGj UzncTGYpFMJgFRIiez7XWCZnOFPrZPGuUMBrCAWaPRZkVLcvMXBnRET7UhQ3DZRaWQPoPG2AOdJoSGky MOBBNfy4PEyeO1n4KIV5KS0JJ4Ksj7OoFjaqFYOVBJ acFX9egrLaODLdFs5JN9tRPdlhRJudReKfOATaCYFePxSxFGp7CaR1YKE6MBPgJZCdIs2zFZVcD1LsZC XiLXH4OcF8HBOzFCLpTzg2QgapLcX0LhL6FnWdJM1UOp2CUkW1OHG8vEGbWn5KJvq3XAEHIfKqUB8MGN o= ID Date Data Source [id number] 06/08/2021 10:58:58 AM [facility] Name Value Range Interpretation Code Description Data Stephanie e(s) Supporting Document(s) History and Physical [facility] OHQZDg1rVdHNDxLb39/MOOofXXFtk2OcJIzgROa1RHzkRFMgP0FiTSV0aC2dMMX7DLrQPoNaBqYzIBM1 lbm FxFoyUJaAzIPEgBohJGtSkYDasHpictUWpBM0LtKK9RHWiQ98sJFUpOGAoB8XnHUSgRAH+Ug1EDYKdqY FcYN2MVmtA7X5ayln3Xk3+aE6QRyaLXbDcL4JofiQBqx9OSsLRyn3vlxs3KEn3jQaN78tlxF5xl3MNF1 xbtfbdKnrn01SshRVc798hp+NJCbPnc50OD1VrkA8A /zp1EmCYTE/FX/7w1k02XkKgg6IosBKpvP2lAaGobok4gRoslqyGWlG9kUYIFm1CLHYKRhRU5oj7lCzL oZyBzM6defAdtrZlALSiY0N1oEEBzy7ckM4CwenBKMGYGbW9N7XGcNTbUvMellcDlzLJQgrHfA/l4ZTK TRs/PAPhpLPq6q9o+mYwnjOAx7ZYCQSKTgHKW/DDNx E20xu070ca3wo6hgIT5wp3IX2YZaadMCTjRfRP9cMv2aclMJgIzoh/F9KUuO1QiE8mdQMrSvq0tBW3CE yQwTir1KUxvkypyOw2/ZyWhaY5ts80w9Wj+1nKk0Br1uVl6maWW+d5e96W8l+d51O7xCZRDTtjNDqhc6 IzImAyQ6jGhTUzSrcXGitmpAy2QUSLlaHbm4N/E6nj cgpXE/x9iX8UxhDmY5PT98W4lusOnqf6dZJ3Rx0ACw8xrWakqswLm/Wdff/LlOCElaQGNjgdulEze4x7 1skzD3u5KOHRSyrYwSbsnIIb0wv6Yqcg6G3IZXVr0dg2OSrVlSk19UeecLd/ZMcMrgPtQSPtX89stHmk Yp2/F1DuUEhhkSMpzk2vMJiKyVNcbNmjw+aSlOvnxv Mfr23tkbuKdZLCdywgvC/1oGcO65crbjimg5sOAWlIrbgmobTSFTGYkb66HoR1j2W8PkPGrn9zNvPbuq ZPxECQWS9xAeDUzzLIsNScIp3VNc/f0N+FZLrwOa6K7SWzDl/Francia+v6Msu3nCnzxhMgTxNUT3Bf09xG [file] ICAgICAgICAgICAgICAgICAgICAgICAgICAgICAgICAgICAgICAgICAgICAgICAgICAgICAgICAgICAg ICAgICAgICAgICAgICAgICAgICAgICAgICAgICAgIC GzQQBxTT8CIFYtJEIzZFUnOBIgUQOhJHNmRPGuFMQzCOLhVQNbVWAsDMNqLSJgWMMxMBGsNJJqAQKeZV FxNETsCYUbJOUyDUEwNSDbMZKgPGBfUGQeSUAeSNCwUSMwXNZqILEeFIEvEPGjQS8KMUNkHGMsRUYfCH AgICAgICAgICAgICAgICAgICAgICAgICAgICAgICAg TSSdURLdEYKxKTDjYVMjWOGrFHRrFDXjVLClBDFhPLOiHKXpLCRvJFKuZGQgWHTtNMNnLZKrQMEgYW1O ICAgICAgICAgICAgICAgICAgICAgICAgICAgICAgICAgICAgICAgICAgICAgICAgICAgICAgICAgICAg ICAgICAgICAgICAgICAgICAgICAgICAgICAgICAgIC EwPMBiHHAfEV8VZKYqDFXiHUKfNUXcTLAeAJVoHORbKYQiJOYpEDCnUKFnZTOsYYGvAYJyWFJoWMDsBZ QpJWEhBCDlFROpYONeCKKjCWJnJDLmHXVgFSPgBCVbLCEvSKLdOAVxEMEhXVJhPRNxAO2TKCOgTKWmLJ AgICAgICAgICAgICAgICAgICAgICAgICAgICAgICAg ICAgICAgICAgICAgICAgICAgICAgICAgICAgICAgICAgICAgICAgICAgICAgICAgICAgICAgICAgICAg YX8AHZGgQMEiRXPqUSZbAVHbQEQlELFbEVIiYLVhFFHsNJOyANJbZWPdRKKdWIMdDNVdOUHjTZTwHFRr ICAgICAgICAgICAgICAgICAgICAgICAgICAgICAgIC TxYXCkQCAuMMOaNA4IRCTsWDMlONNkJEQjATAiSYNuJGNkZEWlCJAgEXRnMBBtTPNgTYCbLDXyDHQsLL OlIAYoOCObFMHcAQAkLAMkGPZyVHUvBUMhSWNkEFXcYNRuDIAvTLPvWDIaYCFwKEXfARGwQA7MJOJdBA AgICAgICAgICAgICAgICAgICAgICAgICAgICAgICAg ICAgICAgICAgICAgICAgICAgICAgICAgICAgICAgICAgICAgICAgICAgICAgICAgICAgICAgICAgICAg UOTcHH2GMTKtPRNnYHXkWUUdMAZlFUDkNTJaZZPqPIQkZUKtOJMpNBXxEDIfACSnXXGyFJSoSFJhLSBd ICAgICAgICAgICAgICAgICAgICAgICAgICAgICAgIC CmWHQsBTNpIBXtXEOyEY3AKN46bWCfh7H4XTLzYE9vitx/Dq5JGZlgmwNcwDOdJO0QBoIwFD5edv4VTq WsCK7yek3ZWVtLDgSzS2K5bIUbTTWdIGAECzCkW29cLAxyMd07WXtdCJFnKtWdOVe4Pr8KUuJcL8ugSH FeIvQ4YJJjRsW6KHDwCmJ6XQJuRwArXCTqIWQiNF4O UULiT593eqZcSK4YEc0WCiRaKW3bix8LBhLnBKZqJooAVdf4KYxgYG1TpEXmbRVsUNEbLLIAIkFsI9gf a2CeLkPeSCKGXQfmIE9Jx7ZqvXCwURw+Dz0FEL0cy6LeNSdmMGElCZ5jah3SVQxHTcRlM8FheCwvHZim ZBEpxXXUMPLkEOKqLFxiJjK0GTWGOUEdqXSmEW5rIV 0bRVUzXFN7FvY5IXHXWK6LIQGjYNIimKWrKYXjWYRVOJ6RXQtsVYC4SJMnirRxxVHsJHdbVT6FSKNagb QgMzQgMCBSDQo+Gn7XMS7lf9FjJDoyGaYlVD3aqm2FIJuNKbKtU1Z9pTHhX6H2KNkyKg5OXHJnGBMsOr KuZFROBTpmMP4FCX0ccfD9MU8PpOCwDTGbIRCnrFZh FYo1E05phRBnTKgvNA7RXYH+Dillon+Le8EMLQaVNTbUTCwPsAlMZHALyDuH8AbQ0HZu8BgN8AxVT61iYjj nwMoGLltBB1VAP7pEYEwWHXMWZ7EoEPbxV1wutTaBRPdBEWFRnRtZ14ilMMuAVMnEVUiHVPmPe4ZBPQx B3SyooLllDssysNrPJNwFDOTCB7FQMdcugZzyDUrqE jzXR47nXsyBV5ZYm4SGuHsLM2qas0NvLIjEv0ZOVZtPk8IMYVdARHzVTLdOPU5ZGOtAzDzZZvdFPMrVD FdRCP1XMJwHYLiCQ9KAwToUZDaSbP6OeXlIYYbFKPrjh5HWNRtGKAkRfUmKDYyRJXsPJQdYYgkITQtDV WuABV6LBLhIROcIN3XYqYaZHVaXFYaDPVvNSBjIEJf rp5QECBrZUVlRyF7LDEdLYPvPZKlMKaoLHSsMPB2QrL8HCLhQZKgBR8OAaSmSHWbSRU8NxXdTGEuTVAe lx4DDIMiLAWaCJImNAZsWOGoZXAlZZppUBAtYGI2HnHoMUJyAQTwDQ6YKlGxLUEsNYZ8MAHuMQCmQZFx sn2ZJCBoSHQcZTc8RdZcXNDtSQPuLFqtHMElZXUbOB W0QMMaAFZtSA4YUfIeYYByWLCrXMKvTVJtJUFxwe6UDUItEHEeXpWiAfYwWMDoLQNcOEppYKVhYHU2HS x8TQJiHUZfLK7MJxQnBTQlFOBkCPiaIRBkUHPaei2EUCUzXWGnNEN8RoRnURJfUSKdUXvcEHKhHND7KK Z0PZDkHQDxNS8JMiIwRFKfNEO4TfVrAWHzIODrdw4F SLOnDOFjGWmkNiPnQPWvCPNoEHswOKTdKOP4HbNiPUQiGJVmVB0THbLoRLVdCco4KXtpRFZfFJBbsm1E LMMfHHAdXzrtMYFrUJWmZWEcTAhgBPKoNOT6PTF1SWTeRNNpVR4CKqFyDEBzSmopWUShNCVfHMDxee8D PUKoKRHzHUX3UnEePMPyHYIxKYubPVErLAY6EeB6GT UqCFWzLT0ASvUgKTCdWuz5VoJgUEUkTYFnxo5QTNFvKIVpNER4YnDvPRAiNABoAEriFXQvMJKmKmF7LF SeSIOpVI2MKyIyTMCyAcF4GDIxXECwCKZquq0ECARvBDMmNAW2EJNnBTQmTAQgIOolDEMdJGBiEfQ6SK DkDQWxTS0QIuOfMLZdHeS2DLyrAVEdTLVotw5JCQFs DIYzKsi7ZgYlPRSdZGBqEQd8oxKcsEStYRb3VY8TW2NckaClWclTVz1Hw764ATP0HWOkRb9CG3rbOc9t XAHjJHMVXp2IGHd3ZEV3JelyNgWmFbifMSB8WqRnVoL1PBO3RMBtXRRkPAp+IDxkZDUyNzBiYjEzOGQ5 MYyuXZW8YbmzDDj6D7NdEuA0Np7kHQFCRz4+CZggnQJfmEljMSCLYaOmPsKdOWbcCADLEj7S ID Date Data Source [id number] 06/07/2021 01:34:00 PM EST [facility] Name Value Range Interpretation Code Description Data Stephanie rce(s) Supporting Document(s) SARS coronavirus 2 RNA [Presence] in Res piratory specimen by CORDELL with probe detection NEGATIVE [facility] This lab was ordered by [facility] a nd reported by [facility]. ID Date Data Source [id number] 06/02/2021 07:56:22 PM [facility] Name Value Range Interpretation Code Description Data Stephanie rce(s) Supporting Document(s) History and Physical [facility] RFBAPv3wNeNVStOw06/VHYxiTAJpb1IuBEwxOEw9PRoqSRYmW7GxVRM4pU9wEZR3ZGhBMhPxFiHoKERd lbm FwReeSQgLiLTBdQweBKnSjGEcoCutpqBEpCJ2DjRX0XZLcV20jCPFxQJPpM8NzIAE2YII+Yy3ROHFuqZ MgPB1NBonZ4L3zg5lGSw4+pE8Scb5AT9ZM3tzmd5wvdL2KawyWHcJfB1OihQT79QdjB+P++hXtHCys6F 6byuipsB5NGCSgeb2PzqlLVNOP/83NO8MoGNhX/Ambika/ [file] uGfT71J3PQru0NnxscYqeDW/Mwu3w3bz8AksITCTerLmfazgo/S9+b7wkqm+YIlkjugyj0T5zPfR/Ángel [file] AgICAgICAgICAgICAgICAgICAgICAgICAgICAgICAgICAgICAgICAgICAgICAgICAgICAgICAgICAgIC PxMLSkIAFgJCToQJAvVRCmENJiSVNeLI2PPNYdQDXlGWUzBORaITKfPLFcKTUoTZXtGRJeYIDkBUFzYM AgICAgICAgICAgICAgICAgICAgICAgICAgICAgICAg SPVgUDDpWTGfJSKwXCLwQTNdYLRlETIjSHEnIGDtAENlBV4ZHBKxXQNhQSHhEIArQVPrZXYxEGLhQXUu ICAgICAgICAgICAgICAgICAgICAgICAgICAgICAgICAgICAgICAgICAgICAgICAgICAgICAgICAgICAg MLPkKMUuEPFdQQLhLMQdZN0OAUOrXJHgUJZaEQFkHX AgICAgICAgICAgICAgICAgICAgICAgICAgICAgICAgICAgICAgICAgICAgICAgICAgICAgICAgICAgIC GrUVDqSNVaYWUiONJtQGNbDQXjBHCtDODwSF7MUQNpIFGgVNSiTMFaGYUnDGJzGJYdRUYhQVIqIKRhEQ AgICAgICAgICAgICAgICAgICAgICAgICAgICAgICAg DYWkITYnMJXiDTGgILHpBBNoREPhYBRzRQFgHROwGMWbCRJuBL7KOKItAAHePRWsZDHqTHRdBMKdCYNg ICAgICAgICAgICAgICAgICAgICAgICAgICAgICAgICAgICAgICAgICAgICAgICAgICAgICAgICAgICAg HMJoVBLmPGDcGNNwJQZfRZRvGG8OYDOuIWXxTDFeAK AgICAgICAgICAgICAgICAgICAgICAgICAgICAgICAgICAgICAgICAgICAgICAgICAgICAgICAgICAgIC JeZENkRPAuKGHjYUVtCIKoRILrMVMeGVLnSVPqKL1TBXLnXWGuQAJwDDBiNIBsJDQdIJAqJTCsNYYwGO AgICAgICAgICAgICAgICAgICAgICAgICAgICAgICAg QMCmLMWeBXHkOFZqSSWlIUBoBSLnWNLhEOXoUFEzTQMlZDEeLSMxHI2HHNEsMJXrLAWnKWUtTKPmXJTz ICAgICAgICAgICAgICAgICAgICAgICAgICAgICAgICAgICAgICAgICAgICAgICAgICAgICAgICAgICAg AGOlPOHyWETsZLZyWTTiUCFrCLJuFT2MBIFaOVMxZQ AgICAgICAgICAgICAgICAgICAgICAgICAgICAgICAgICAgICAgICAgICAgICAgICAgICAgICAgICAgIC NhMYQeITKcJBWxUZLdBUMlWZHaEWNmAODmDOHcSHToCS0NQA34iICsr2V8OOFfTH5melc/Ck3FHWxaks PipVLrBB2IJuObAC8kge1RDmJnSQ1vrn1KCMwNQnGz P6H6bSXcXTPdKHESFjXcC89zXGqxQd23CCixNORwTcQcRXk3Bv5GLqRdB2kmDGBfQaQ5RVAzNuR3BADt QhI4CGWvMlLtQWKeQMCuVUPuHJYFLPD6IEJcVlUzAyOmNRXcDNhcRRRSGN7LSsNiM0EjhB23TDeZNv5+ LHtqfyXkIgjNBrN2LJFul1PwJEq7BG7VHMEeSsfbd0 BcALthLGUMUWidLK6HTVC5QCT3WQFmCu8FOIKcE843gnHsUD2DSp1EXuAzIL7eva1PZIbeWWHiRgxCVg i4TWahAT8ChNZvODnYRuVmAffsKYafQEERIDsbt30jSLikzGNtshurRMSJVCR8VCWoHtE5WaQvMfXdSX J1MYVbZE5wLAuiFZ3DCMF9PZgjFGIuRBOrZ9bSZtRg WZEsVUNymJaaHI2WBoHiY5GfavPouOF8QmVyFTCKDf0+IUhmjgKdNutPTmQ6MRZwr9IeSRv6LD2USNDj UOpqCN1JIXBtzV7iWJrrMQ4JRaK9UAFqBFJLPjWzX67jiIJzAJi0X3RbUpOjEHJjEohbNGMfAGdtOnCb ZXMgWyBdDQogID4+ID4+WPjsUG0DPOkaydIxDBZuBt 8XJOLjAEIqMX4vTBNxYSQaY2A3tWfhFMEPTeMkD4qunjhzMR8sKLNfZ830dNxgylBoFWR9VWUhVz9DWE YsRTU1UTBptEJlBHEdVIMDUEnyAP1BjBXwVOX1pS4rLSluSLKuJTZwS2gYIzAlcVseZD40kFkarwUzvQ BdDQo+Oo0UAE0bm8MbNQl5mzWlSFpzOWMaAQjsEHGg PZExMDFiWYL8XCF8ZPMTCgLcJFQpNPFrVFrgCTIiZSQvqh0LGXGbUQF0FxSoTeIcHAOnOQNeKWimGIDe GWOtKAS3HTHzIZVaAO5YGbCmQPBqLBLgVHwfNGRiHAFrod0ITDEuYPAxVUBgERNqEAHaVWUnETzfJLLv MCR1RDDoYCIaAVMeHN3NHxHuQWFnDUa1ZHKtJXFbJY Qyrm6MJLJcNEOkELQ7TPEfWGKgFEFfZBqwXPFkKSEaKHJlOXTgRZUwEQ9IYzUtONEnXQE1TVIaUJLvXS Lbhw6MHVMhYUZzGIJpSNHoNMWyMDOiHOihTSLvAIV1EsT3LTSjSEOgZX4PGaYtPTGoDEtfAGCwWDIeGD Mwvl6RWEYzFZYyAJN7TpSrBZRlKQTjZNrbGJMcHCKi UYkfTFTaEHKbNM2EYlGtHVTdXfRnTQGvCORbLSNnkj3LQGUlWIKuLjOuDrOiJKRlBTEgTTyjZWHwSVB7 CAOuVCDcVACjTK1KGxCfVZYxGvulOIXhCKJrBUYjbe4OHGJvOFQpWeJ9AxOzIPYzGQAgOBhfFRAuJVB2 DdE2KAClEGMfAN7ZUfFwOYVtCuq7TAVgVPEyGAOnbe 5RYLLlJIXhCYLbUkHiINVfNTQrMOghQCUlCYW1DOd0AKOjQSBqMC9ALlNkKMGaYrp1XCzyKRAkBCZlkn 4QVARpBBPaJGx9FuYsTZGvOHBvUVdiJQXoYWLbNAI1HHGaWXGhSQ2RUxKvGJDoFhXvLQFyGWJkFTMwhb 6RGEXbPZIoSPEiYyRaRCObEDUpWNelOFIvHKCmZce8 TVGhLGBcFP3CJcWfIUNyGyC7SWXzWNHcZPYyvc8PSQNiPMKkHqX4RALgORIsWXRvSGqvYEKeXZDiAnS0 JAMpURWcYP8ZFcWsGDMrDfT3UYMiJDJiLDCxdi8DIVNbZJOnILJ5WqHgHZIfTFKsNMllZVRzFZU3MTN1 GVYfQRQaQL6KGdArWXBmZJG3VFAiSICvDVEcqf1RJS RdPBG2LMw5RKItWUXmRJOrFTgaWWUvFKM5YTh8CHPgGPWwSK8TGbMkUJCrJITdSAPlTJYcQMOffa6KRE WbIQI3AGZ0NrMxTIOoTKHjUUclBKRfBMDoQEY4TOOdXKKePP4FNeCaCIItUSN6NklkSDSjFFDqfo9ULE SyFKQ3VRe2EfHoITDmRTRkBSrrUWRyKLPwFCO4DEUe CSTgHA0SKoApMBUhAVU9UwqePYHtOPSvwa8HLAIbGIQ7NNR7JAJoNLLpUWTpXZrzCPPlLBX6GIM8WHVn NGWbRK4BOmQmRZRsQQKzRPCtVUTlOAIrai7PyXPmjYtgmt4IBYaZMv4LmBvmIQBgMBknJo3jzIY5RRNq XINRYj0MmqEqIGKvLBHYKUfnEMMtAUXsEqP8TLFqRn KlHiL1EfBrJLSvADF1BRH8Tat6YzV8PdU9SVCmSKNfBKH8VSZvUuZgKCMoZgHdAYd3TBx6GFUdXoJ+IF 0gDQo+Gp7Mo2PgchP7srFzDRd1HSInIF5XQTSEP7FQDi== ID Date Data Source [id number] 05/30/2021 08:56:[address] [facility] Name Value Range Interpretation Code Description Data Stephanie rce(s) Supporting Document(s) Discharge Summary [facility] PYNEEa0uVwGBCmMq62/HPEakBPUwo4BtQDjeTPj6GFwpTYZyB6NlAJG2dX7mBMW4WEwPAlGyMvPtNVA9 lbm [file] y5t789eI5qaPg7IMdGBXoX6lVL4r5MfkFMz8MN/ [file] AgICAgICAgICAgICAgICAgICAgICAgICAgICAgICAgICAgICAgICAgICAgICAgICAgICAgICAgICAgIC AgDQogICAgICAgICAgICAgICAgICAgICAgICAgICAg ICAgICAgICAgICAgICAgICAgICAgICAgICAgICAgICAgICAgICAgICAgICAgICAgICAgICAgICAgICAg ICAgICAgICAgICAgDQogICAgICAgICAgICAgICAgICAgICAgICAgICAgICAgICAgICAgICAgICAgICAg ICAgICAgICAgICAgICAgICAgICAgICAgICAgICAgIC AgICAgICAgICAgICAgICAgICAgICAgDQogICAgICAgICAgICAgICAgICAgICAgICAgICAgICAgICAgIC AgICAgICAgICAgICAgICAgICAgICAgICAgICAgICAgICAgICAgICAgICAgICAgICAgICAgICAgICAgIC AgICAgDQogICAgICAgICAgICAgICAgICAgICAgICAg ICAgICAgICAgICAgICAgICAgICAgICAgICAgICAgICAgICAgICAgICAgICAgICAgICAgICAgICAgICAg ICAgICAgICAgICAgICAgDQogICAgICAgICAgICAgICAgICAgICAgICAgICAgICAgICAgICAgICAgICAg ICAgICAgICAgICAgICAgICAgICAgICAgICAgICAgIC AgICAgICAgICAgICAgICAgICAgICAgICAgDQogICAgICAgICAgICAgICAgICAgICAgICAgICAgICAgIC AgICAgICAgICAgICAgICAgICAgICAgICAgICAgICAgICAgICAgICAgICAgICAgICAgICAgICAgICAgIC AgICAgICAgDQogICAgICAgICAgICAgICAgICAgICAg ICAgICAgICAgICAgICAgICAgICAgICAgICAgICAgICAgICAgICAgICAgICAgICAgICAgICAgICAgICAg ICAgICAgICAgICAgICAgICAgDQogICAgICAgICAgICAgICAgICAgICAgICAgICAgICAgICAgICAgICAg ICAgICAgICAgICAgICAgICAgICAgICAgICAgICAgIC AgICAgICAgICAgICAgICAgICAgICAgICAgICAgDQogICAgICAgICAgICAgICAgICAgICAgICAgICAgIC AgICAgICAgICAgICAgICAgICAgICAgICAgICAgICAgICAgICAgICAgICAgICAgICAgICAgICAgICAgIC XyATPyEKOsYKZmRDn3M1txXVJbOKIzEW2cUIl6Zp7+ AHmIScSfEMA5uqTwdQ4BLN1fk4KhLDoaICQbp0QnQXd7SK2JJZTmGCkdPW2TSBphxw5YQWYpWPQiqFFJ o4loCvGlJJY8ZNYfNwbuIG3XUZJmZ3xvdyGmAONfMHWUSXxuDZBFIQepWKUMIMMtTROgDxRlGbFmELIa XRDoFGBLCZK5HBPtDmAzWCBiSRKkZnAhULCQYGXtPT IrVrLeFPDfGYXtNndxXGPSLZJ9DSEaVmLhVPHtZKSdLX3LJOYrG484fiUkUHDALi3+DQplbmRvYmoNCj UsONLgc6WrUFg0QB7LAPOvIznab3EeIiHzODNMBQlySA8LZZV1DULeWQQuTg1OCASnG220goArUG5GAd 1YGvVoAP8ujk8COyWfPOLxBiiYTfq0XHbhXC5RaTFl KQhNtPEusHBzW7IpI6YtzPPvwLNvlLYDEJsib4X5MCXyUa64lZD7ERX4CDHyIfQ3CnOwUwChKRV0PXhw KD6yWUncOV3NSWM5EBdfKANuIEMjB2kRNrFoZGTdPIFopAypUK3SYeNoT3AvpbZvoOL7HvGzCTPUMe2+ OZufwtBdEtkPLoW0CSPdw2PdITy4SU7YBYRxGAonYF 9HBJUgeF4aJLbxDR0RNbD4UEGwPPWKUlVtG34ozPCgJSs3X2CgFtLlVRAgNkjfQQQzNNutTjRnVUXtQt BdDQogID4+ID4+LPbgYA3PDThcrsJwNELcNs5HWXLaVIOmKZ0qIAMfVQVgL2E0hJhdXETCKaZfK5kpyu yqCE5fYRAiM270aItoikZvQRGlLWHaNw4QMUGdACA8 MJVzaXZdUtNzDFBOFNfaZW4MvLWkTSE3wJ4gKLqrMESdPSWyM9qZZsGtoSbkXQ05sDjzqfHnzIBzARy+ Gn0IFE8xb1IuCIr1mpXyAWlqZOA7RFktGUUkSDKsCNDyYKE4COA5BEYXRwGxKBPbVALlZSucIEUqODCb kt5GNXPkFTN6SfxoZxDvMJAcYICwYMhuLYUtMPl6Lc KzSZGzKTAiKV8NCiEkXABeUYJrDXhhAJLzBBOpzt4UMNTlPJOrDFRdPDMpLYTuMUHsAVcpVYAoUYM3Vx RlRJLlAHWiDS9JYeKqJQIpHHk6ATYcBSZdNFHexh0HFWRxWLOnYFD7XRRfRNEqSRBvMOdiJLNnBJRmJl y4ENXfDATlRH0NShIkYGGvDQP6OFNoAXAiCCYdvu7N SCGxKTNeOhx0LkFoXMNqXPAySCbrSPXvSMM4GTghNZMgACJhLN1UYeFdJUYrUpW2HAHnYTMpITOfmz1F ONHuQXVrUYZ5DbArHZDlNYCvEGgpVTBnPIA5XyCpKOOvATIjUO5XOpXuPEXaTuL8NNPrZGXgQPBgao2G VTMoIIPmLOV9QcOrUTVmWGKhFGdgAFUtVTI1UKv3PR HgIHNyQP2VSjDpMXAsDrMtAmkdPWDvXUNlrr8NOVQoUUUeKIP3NbLkGEXvSZXbHIruHMGeXBZ8ZjiaLH EiDPYvUW8SMmDfOXOxPhL0PXNgXKLxMWVyib1JDQMoCMUeSETyEBVaAVRiDAYeWLkdISHkZPN2XOIuBN FcIFKdVV5DAoViMQXjOMP0EaCiODHyZFNvvb8NHPFz PZM5YkD4PwNcPVXaJKWwRYnfRKPjZSO1KbW6FVFjCJEqWP1KScYaEBGrBFI1BEMtIGKhAIFmez0RANJb COY5IVquOlOwXTBtQTTvJUlzPSYpXUFgIIFgJZJkOSKqBK7BJjThDQDhJEUzWTDeVJHvVDNyly2XLSFu DEX9VwM4UlRdMUWiOJUyOMgoFZKqCMPaMJM7YLZqAI ToMD4VZoQqHJTuZDS6PVWnKQDjJKNqhh0FYTNsFFW6Mpa6GaUwTKNvSSSfDTkqQWGtGQT9ThE1FJAlKH MiMM9WRfWzASGvQII1AXdnLUFxMGWmts6FNFUcXHC6KSA0DxBdDZJsHLVfLQttUKVlUZG4CRQ9RMGsPJ XuYM1PAqLrIFOoAJAqWQCeVBWwAKYkbc5IGZIoTJJ1 AsB4VkNsSVTaLIBcJRvuEERmDBG6ULP1BCEsBAAzPM7OBzJdBDCdOKl2JGXmYUXjOMOocv6OFUHpIEM7 Oij8MHGdCZWoYMTzTOavRDJcHJJ7ESL1FGPxKAEtIQ9TQdVhBBXdWZvlJILxVBQiCRWyxm5OPOObEUN4 MSYmHoVnDJWuOKKiKJdkWJYjHAjpMFn3MAPsZMPqQI 9YGiKiORWjQbD3FZSkRINkLMBrhf4CNSZkHCB3OOOcLUCiMALxMUBvEIrhCPYxKDtiGvY6PELfAUPvEG 5TYxYkBMOdUnK8OBAaQAByJNJvsn1TZVZsGOJ6EpX8OlDrMROhBVGkSBnqYKZtIFn3Gzf5XDMdHXWgOB 8JDuAyDHRcKaU9OZYmSIAjCSDnwi9XGIKoYFT8QvP3 JUJsPZTpVPLeCJwzFQVyZIb6TmeoABHhGPEpXE2TYzVdKQXzZmk8QLAaPNRpPKVnpf6LWLOhQUG3Qzf7 TUZcVLViWKXzJFddIFViXZj4XQsoBZAhTFNqUM3KDpZvDGMvMyelWfFsLOHyBHNtsk1VNGGoXFZ2UWuu CGAtVKZdJETwHLlpNWOjGPv2TAifKSOfYTHcEH8EYg SfLPZaOADeFgMxIMVxMIDfhl5TuTKpxYhixa5MDLfHKz2JcDtrOVB1WKloQp9dlOQ5EDRbYQIJOs4Qdy KjDYNjGJCFZUuzACKoCYBpCMg1JoR9FVelPQBtMYQfMAL4OGH4RNZxCyFfCBOdKfY9QVLkDbu9RJf4ZM FrUEL1SVL7Gxc0BjY8QLQeZwIwEBW+EH8tNXo+Uv5Tu6DywmI2tmLzABh0JAC5Pm3XWSEMT7NKTq== ID Date Data Source [id number] 05/30/2021 08:24:46 PM [facility] Name Value Range Interpretation Code Description Data Stephanie e(s) Supporting Document(s) History and Physical [facility] FSGJFx1uScOKQoSm78/UGYigKEKgg3WzNHbsFXh8ULgiDGVpC6NmNFW5qZ5oOFA9RDnKRwDkArAkKUS0 lbm [file] 3OJeN8MOP3eDOtPc6WGqF2BMxHPkEdWC9OOSp= ID Date Data Source [id number] 05/29/2021 12:16:49 PM [facility] XR ANKLE 3 OR MORE VIEWS [id number] RESU LTInterpreted by:Kristine Hernandez ankle radiographsINDICATION: Foot pain status post trauma.COMPARISON: None available.FINDINGS: Portable frontal, oblique and lateral views (5 views total) submitted for review. Osseous structures are intact. Talar dome demonstrates a normal contour and ankle mortise appears congruent. No appreciable malleolar soft tissue swelling. Tibiotalar and talofibular joint spaces are maintained. No evidence of ankle joint effusion or infiltration in Kager's fat pad. A roughly 3 mm probable ossific density, well-corticated, overlying the navicular cuneiform articulation is noted on oblique and lateral projection; no definite associated dorsal soft tissue swelling. A small os trigonum is suspected on lateral projection.IMPRESSION:1. Osseous structures at the ankle are intact.2. Tiny ossific density overlying navicular cuneiform articulation is partially visualized and clinical correlation is recommended. There is possible dorsal soft tissue swelling. Dedicated right foot radiographs recommended for further evaluation.This document has been electronically signed by Igor Oshea MD on 05/29/2021 12:14 PM Name Value Range Interpretation Code Description Data Stephanie rce(s) Supporting Document(s) ID Date Data Source [id number] 05/28/2021 01:08:00 PM EST [facility] Name Value Range Interpretation Code Description Data Stephanie rce(s) Supporting Document(s) SARS coronavirus 2 RNA [Presence] in Res piratory specimen by CORDELL with probe detection NEGATIVE [facility] This lab was ordered by [facility] a nd reported by [facility]. ID Date Data Source [id number] 05/23/2021 10:50:[address] [facility] Name Value Range Interpretation Code Description Data Stephanie rce(s) Supporting Document(s) Progress Notes [facility] ACIDPe9qUaICPpHu59/JQWgpCFEon6CbNHqwXOr8ZPvsJCBoE5QoFTA4vZ2iHZR8HXhTHsTjFsGlXOCv lbm [file] AgICAgICAgICAgICAgICAgICAgICAgICAgICAgICAg ICAgICAgICAgICAgICAgICAgDQogICAgICAgICAgICAgICAgICAgICAgICAgICAgICAgICAgICAgICAg ICAgICAgICAgICAgICAgICAgICAgICAgICAgICAgICAgICAgICAgICAgICAgICAgICAgICAgICAgICAg DQogICAgICAgICAgICAgICAgICAgICAgICAgICAgIC AgICAgICAgICAgICAgICAgICAgICAgICAgICAgICAgICAgICAgICAgICAgICAgICAgICAgICAgICAgIC AgICAgICAgICAgDQogICAgICAgICAgICAgICAgICAgICAgICAgICAgICAgICAgICAgICAgICAgICAgIC AgICAgICAgICAgICAgICAgICAgICAgICAgICAgICAg ICAgICAgICAgICAgICAgICAgICAgDQogICAgICAgICAgICAgICAgICAgICAgICAgICAgICAgICAgICAg ICAgICAgICAgICAgICAgICAgICAgICAgICAgICAgICAgICAgICAgICAgICAgICAgICAgICAgICAgICAg ICAgDQogICAgICAgICAgICAgICAgICAgICAgICAgIC AgICAgICAgICAgICAgICAgICAgICAgICAgICAgICAgICAgICAgICAgICAgICAgICAgICAgICAgICAgIC AgICAgICAgICAgICAgDQogICAgICAgICAgICAgICAgICAgICAgICAgICAgICAgICAgICAgICAgICAgIC AgICAgICAgICAgICAgICAgICAgICAgICAgICAgICAg ICAgICAgICAgICAgICAgICAgICAgICAgDQogICAgICAgICAgICAgICAgICAgICAgICAgICAgICAgICAg ICAgICAgICAgICAgICAgICAgICAgICAgICAgICAgICAgICAgICAgICAgICAgICAgICAgICAgICAgICAg ICAgICAgDQogICAgICAgICAgICAgICAgICAgICAgIC AgICAgICAgICAgICAgICAgICAgICAgICAgICAgICAgICAgICAgICAgICAgICAgICAgICAgICAgICAgIC AgICAgICAgICAgICAgICAgDQogICAgICAgICAgICAgICAgICAgICAgICAgICAgICAgICAgICAgICAgIC AgICAgICAgICAgICAgICAgICAgICAgICAgICAgICAg RSTjVTXcPZWmYYIdHTYnINTqPVQhQBFoYBXdSKo9X9zaLLFlESNcNE5uHQk7Wx6+PHkOEyNmUZK1jdTx vN5CFI3eh3TwUPykGQYkx7HlOPc2WO5SRTZtOQluWZ5HXSmoej8TYHGuMRJheFQRu6ynZpQrXQL1YEQr OqedVD1PUJWxB7epwxViHXZkHZVSQE2CZkQfJ7QaxN 75LDLBQq5+JTljirSbZktKGsE2XBSvh8DpKVs1HR6HAPOcFzndh1MaEgNkHNWFFSnfOB3BJRH5KIB9ST QhKg2TFKHmW268wyGtHF6FXr1FAcObPE2quq4OChBvFLWxVcoAKvp7CLhbCB2MoJCeGBqPog3kqfGuyn KMu7CnocIlkXSAZBLnQ9NmUSEdrLRphaKmnFBpQC5s CC6bOGMeWUVjTtItSZUGGD0JWGPoBIZyiEUdWYNmKTMHAQ3TLBqkGFD8DgwkgxWaeZGtXKxhDR2DUFVz bnQgMjUgMCBSDQo+Cy9IIY6mx5WkIZekPdOsYX0okd0TDRtNHvKdT0X9kHNoB3B8FYvoHa3JUSNjEASt IsSsQNXESSegDB2AGH0gijK7RO8PuHSyUPIgFLGaaZ FnBQg8O93ucHCiJQdeLG7TZYJ+Dillon+Mv0LHBLgGZPeHGSvTqDfVZCNPkXrA7MgM8LIj9SiD6BvIE08wJ nwioUnGWjeHO4GXF3dCUCyKDGYQH1QmAYnoK0folQfNPKcYSLGUkJhN04mbAIzSAYsQRF2DCTtAt1PTH JcW8HfjrPgjEqhzmTtQBXkCCVTTE7LIVpiskObuLBu iHgbVM75bXrxTV7NCl8NKpBpEW6rws3PbTNqIa3FEQJkNN7GAXVeSOQgDWAqUFZ7DEDzRoDcLVtnIAGx TGUlRAZ4JKEzOEUjMH3OBwCcNNNiXlX1PQQxSPMfLGMzse8SAUZeRPBdJzF9XhBmETMfPQZhLUbfNTHw EWVuUNM7WGYtDTIyVK2XKrUfMHEjZWZ9NkPyZWCrVR Vcan8KVUJeAISdLwA5WmYvJNRbOQHsJTlwXJTsGNQrTDO0SRYfGRHiTE8XKjBfCVXqKUZjOpEvBBTsPI Kubr5HLDXgURWjYgMhSJMuZYQyUKJfWGedJEIcAJE1APqsGSLwBBObBY1XUdPpFAHkTUW0ZkzrUHQoLJ Ppzx3NUOYyIEVqCBk6WRIsIMGmQFWfCMpjRFQsXAD5 ZAf7TKDaPIMfIJ5EUzEbNQXoTFm6KKKwMTKwYGVwos2YEFYjRVHhDrsnXjViYLLeFOFvFRjeOAArJEC3 MTGsYITxAHAbBS6EMrPpZZHlFJarTMlaPPJwCGSkws7DPMAvUWXnBCM9WcNoLTGsFYGtYToiKKLdLFB4 PnYkOCFpHTRtAK1JRhNzUYAkYKn9XvPuWNBoHEQeyt 5WFXPjIJXcKJL7HaLwJDEjNKLkHRxkUNKyVJAoRCV6AIYtBTQvMA3AQtAfGEYvXtD4JeUyIAKyNEAsad 2BTEWsNCEyBIS0FlOtLCOmSPTlZCamANEpBTBgIVlpFUKuWJHeKP3HZyGcTIBxTzU4YnHuMQFhNNGtgm 5GBYUgXSOwVaodAPVtCXTcSCYkMHr2mcXeiJKhMOf1 HA1XT5OhzkJmPhcQHj2Eg921QNV8QHGjLc1GT2czWg8vOMAmSRYEBo3XKYq4Q8YvADY8XJH2WiIxPaG5 DrTxHCw1EycnDaeaFnAxRGN+VAs8FrWtHBZ6ShQoWSA9BLz9ULG3HPC2EXCvDNBzZEZ8Bi9bUYFJHp0+ JLxvvXNabGreGBGEGaSvCLEyLRxkVLQHQj7M ID Date Data Source [id number] 05/22/2021 11:26:[address] [facility] Name Value Range Interpretation Code Description Data Stephanie rce(s) Supporting Document(s) Progress Notes [facility] YZOCVy9dOhMGTlWw95/XJZveKCKgo7HvJSdgOAe2YNhbSCQrH5RhQWR0kV0xHPN3IIyYIrKgFbWoDXLl lbm [file] ICAgICAgICAgICAgICAgICAgICAgICAgICAgICAgIC AgICAgICAgICAgICAgICAgICAgICAgICAgICAgICAgICAgICAgICAgICAgICAgICAgICAgICAgICAgIC AgICANCiAgICAgICAgICAgICAgICAgICAgICAgICAgICAgICAgICAgICAgICAgICAgICAgICAgICAgIC AgICAgICAgICAgICAgICAgICAgICAgICAgICAgICAg ICAgICAgICAgICAgICANCiAgICAgICAgICAgICAgICAgICAgICAgICAgICAgICAgICAgICAgICAgICAg ICAgICAgICAgICAgICAgICAgICAgICAgICAgICAgICAgICAgICAgICAgICAgICAgICAgICAgICANCiAg ICAgICAgICAgICAgICAgICAgICAgICAgICAgICAgIC AgICAgICAgICAgICAgICAgICAgICAgICAgICAgICAgICAgICAgICAgICAgICAgICAgICAgICAgICAgIC AgICAgICANCiAgICAgICAgICAgICAgICAgICAgICAgICAgICAgICAgICAgICAgICAgICAgICAgICAgIC AgICAgICAgICAgICAgICAgICAgICAgICAgICAgICAg ICAgICAgICAgICAgICAgICANCiAgICAgICAgICAgICAgICAgICAgICAgICAgICAgICAgICAgICAgICAg ICAgICAgICAgICAgICAgICAgICAgICAgICAgICAgICAgICAgICAgICAgICAgICAgICAgICAgICAgICAN CiAgICAgICAgICAgICAgICAgICAgICAgICAgICAgIC AgICAgICAgICAgICAgICAgICAgICAgICAgICAgICAgICAgICAgICAgICAgICAgICAgICAgICAgICAgIC AgICAgICAgICANCiAgICAgICAgICAgICAgICAgICAgICAgICAgICAgICAgICAgICAgICAgICAgICAgIC AgICAgICAgICAgICAgICAgICAgICAgICAgICAgICAg ICAgICAgICAgICAgICAgICAgICANCiAgICAgICAgICAgICAgICAgICAgICAgICAgICAgICAgICAgICAg ICAgICAgICAgICAgICAgICAgICAgICAgICAgICAgICAgICAgICAgICAgICAgICAgICAgICAgICAgICAg ICANCiAgICAgICAgICAgICAgICAgICAgICAgICAgIC AgICAgICAgICAgICAgICAgICAgICAgICAgICAgICAgICAgICAgICAgICAgICAgICAgICAgICAgICAgIC AgICAgICAgICAgICANCjw/sMQfE9tjcOFmnmG7D9rhYo5MCg8PAQ7tm0KxLWYqTIuhbcHpMivTAcGpON EzEeaPTao0DVhwDU2BcBKaG2FtS3JfNWipYG7CRVOs DEOboVIvMHQkFVBhHkH5NKQxMWhuEF3OlSDmNLjsILMaLOVsVgJtIYHyXN3KULYcA629lfSkYo9SOz0E XbFaMK0cfn2GWbLuLRUyJcmXQji6QNgvYR3PpGWxzXJwPfXgNNBRZdPwV9tnz8BlAaWaHZUIDNxeLS9G k9JygLBpVJe+Fy4OQG9tk5ZeOHdvAmTiQH3yfo1CUI aHLbDjO3ZjuTspRGJau4pyLGQzAA1gdBJoLMB1UZOgOrRvI6ZfN825a2crSAU0KFGgUsKyPtKnGtAbJV Q7CEMbQA1bGCouZX9CPEC6HFhsBKLcSBIqU1sRSjIaNOojXMJqtIqeBU7NHkDyL8KdkxQudXAlCjUnAH INCj4+AGkpmrXkNlnBOeM3PUMji0BuHNv7VR5PURAo YVacKI1CALOkhC6zSQpdAD8GRlXbXFSkDPDNOjWfI90arRCdVGj1N1AwBaRwJHFlDzdkJRRgVQarLoCd ZXMgWyBdDQogID4+ID4+EGswGQ0AMSekuqAoPSYjVk2APVDrGSQeSF8uGIIgOZTkI4E9fCmaETTPPpKc Q6yvhxsqEL8nRKRtX392vSfwxeLcEYLhHBFiJh4BLI WzRRP9KYAgvCFpRvKySIYJZUgwDJ3GhAItJVX7eR2oXBwvPVIeHRWqS5wFCnTwvAlcXV78cWodrhJboQ BdDQo+Fu9WJR9qw9UuKOl7nmWhVCchWCT2DJcqXKQqUBKeXXTkJJO9HOH6ZMEDSdJgOHYoCOWxWIouBV ViVMSayp8WNFCqIEFrQpn0LrHuFTDxOERpVZgnYEBp JPC0RuP0LBMmFCEdKP3OQjRpSQCqLTSlZQwsALMvTZTljp5XBXBlBYHuTbo0OHDlACKyVZUnIQiqDYZk RQKcJKN8XEFgMDNzAB5DFyRdVFVsRBCsAYouRQXfPBNjzu6MLHIrSBSpZHD1PnSjDNXhNJQoULujJMQp KHE5VpJlXSSjWCYjXK9TSsWoCTChXYV1SIMpVOTuBX Pgng5YCIYlIOMbAME4RAAfIYCyQRRwZMwoDLYnLJG8XCD4ZHGdBGCqTN2DLzScPHEqAUO0RSVsITQuOX Fewp2ASUWpGXWzFbtaOXBbOPNfFGJjAJokWFJkLPG6Gbn4DYAxNEMaAW5ILbOcWHCvBNi8NOOvEOIsKT Zpdk8PGWPcBLAyNKlbIyClOPDyLUVpCAnkGEKcZZWy WBBtXFFwADIcZX4PXcQuEYXgBkScASobDSJbMZPbbv9JTVNwFNWbWPE4QOUjANFfVTKwOXsvSDWwLBRv HzMuPMOdGTAtIB5CJgPoGYQvIiD7OFJpGITvJWLztd8EHYCzCJJsXdY0RvDgLDXyWTOyNXchGYBrDUAa CdG4IJIcDIFpME3UQfHjUPRsLaX4ONMoHGWgWORwhh 6QNPNnFOViNwV1YJSsRXZrASMlUBluSVMkTSB0IsK1FGHmIRPgCO6XRrSsZKPkLbW1PNJkLBDlOVUazq 8BZEAsFJFdRrdoKcUiJUBkRMMxTRsrKBJrTKH2HZDgMQOtQWCdPZ2UFlLfVYQiCsk4NEzyNEWxDMKuth 6FKJHeFEQmKYa9YvRjMYOaKYOdYDthNRCzJQW9JIO2 EJGnARIqEE8CDnSeNYFsNyvlCbIzRAXkUQFovw2NeVWsoQuqoc4DYGxAQr6PkMseGGQ9PHgaWn9gyESv XPGfKSZZYm7BtcJiXWPmCPXUIOqhUGUbKFB7NNAdJGPaAONrHPVhULG2UWS0MHWfHtA4Z0WiPlK7XiR4 Tzj0BRP9FLKxGKMpNLVmVVGjAHckNtUnJFjuBuQfZB U+DK6eJPd+Cy3As3XgbkZ6eqHqHLfeIQXwNR9XTWCES7PCHt== ID Date Data Source [id number] 05/22/2021 10:04:[address] [facility] Name Value Range Interpretation Code Description Data Stephanie rce(s) Supporting Document(s) Care Plan [facility] TTEEOq9bDjZJDwNw15/KUSeePXWmc7GxQLtwUGn6DEftHJUeU9JqHMV2zX1vNTL5OZsXJmTkRpBhTJGj lbm [file] xzQaH8TT9NGXDGY1GQRe== ID Date Data Source [id number] 05/22/2021 09:53:[address] [facility] Name Value Range Interpretation Code Description Data Stephanie rce(s) Supporting Document(s) H&P [facility] SNPCHx9yCpNXEhAb14/TUCmqJMUro4ZfMRxcDOy8MTiuCIPnB1YcHPK7iX0hLWJ8IZpFAfYxMtUzFOLw lbm [file] SiF7I7ZmnrYqZtQur7GUQpRco+WY8cXAx+Hg4Uu4JdmfX0xaNyBKazECV6XR5VUKTYB7LHUk== ID Date Data Source [id number] 05/22/2021 07:43:[address] [facility] Name Value Range Interpretation Code Description Data Stephanie rce(s) Supporting Document(s) Nursing Note [facility] EMOMGp9mSxVGYrTr89/NXYpjXIEdh0LeYKzjGVj2XXoxPQPgQ6UcVDK2lL5pJIE7RRwEMhGwRgIsEMDv lbm [file] AgICAgICAgICAgICAgICAgICAgICAgICAgICAgICAgICAgICAgICAgICAgICAgICAgICAgICAgICAgIC AgICAgICAgICAgICAgICAgICAgICAgICAgICANCiAgICAgICAgICAgICAgICAgICAgICAgICAgICAgIC AgICAgICAgICAgICAgICAgICAgICAgICAgICAgICAg ICAgICAgICAgICAgICAgICAgICAgICAgICAgICAgICAgICAgICANCiAgICAgICAgICAgICAgICAgICAg ICAgICAgICAgICAgICAgICAgICAgICAgICAgICAgICAgICAgICAgICAgICAgICAgICAgICAgICAgICAg ICAgICAgICAgICAgICAgICAgICANCiAgICAgICAgIC AgICAgICAgICAgICAgICAgICAgICAgICAgICAgICAgICAgICAgICAgICAgICAgICAgICAgICAgICAgIC AgICAgICAgICAgICAgICAgICAgICAgICAgICAgICANCiAgICAgICAgICAgICAgICAgICAgICAgICAgIC AgICAgICAgICAgICAgICAgICAgICAgICAgICAgICAg ICAgICAgICAgICAgICAgICAgICAgICAgICAgICAgICAgICAgICAgICANCiAgICAgICAgICAgICAgICAg ICAgICAgICAgICAgICAgICAgICAgICAgICAgICAgICAgICAgICAgICAgICAgICAgICAgICAgICAgICAg ICAgICAgICAgICAgICAgICAgICAgICANCiAgICAgIC AgICAgICAgICAgICAgICAgICAgICAgICAgICAgICAgICAgICAgICAgICAgICAgICAgICAgICAgICAgIC AgICAgICAgICAgICAgICAgICAgICAgICAgICAgICAgICANCiAgICAgICAgICAgICAgICAgICAgICAgIC AgICAgICAgICAgICAgICAgICAgICAgICAgICAgICAg ICAgICAgICAgICAgICAgICAgICAgICAgICAgICAgICAgICAgICAgICAgICANCiAgICAgICAgICAgICAg ICAgICAgICAgICAgICAgICAgICAgICAgICAgICAgICAgICAgICAgICAgICAgICAgICAgICAgICAgICAg ICAgICAgICAgICAgICAgICAgICAgICAgICANCiAgIC AgICAgICAgICAgICAgICAgICAgICAgICAgICAgICAgICAgICAgICAgICAgICAgICAgICAgICAgICAgIC AgICAgICAgICAgICAgICAgICAgICAgICAgICAgICAgICAgICANCjw/uEUaX7hrhKIithB9I6mgZv1TTv 5QOK3gb5McLVWbYRxtxlNtAruKSbMxTEZrIoqFNhz7 QRxwKL6NpFPmP8BlA7ApOTbwVD0LYRJfVHIbaENwZUSnPBBnHmZ2MRIhGTcaBW5AeZUtWVxbSWXgJRRo AV3DMDWaW944ihAgRE4XPs3BApCwVA5qik4ESyLvOQUgOasEAhc1GDxgLA2HrAPckPNbVtMzXDAZLsNm Z2skz3LgTjYtGLJIATkrRW9Sl2EfvKZdVZf+Pg0KZW 0rg8NkTJslErIcZX5xtt7FEUwGAcGqD8MfqXxkZI74gpExehfxRb61CGDyaSSKXULgfRRHm7ChJJLPTz PrfBQrGQ0hTL7kWCPaZRO4RvMnYQSLTK7QNNXySKJtnDPnUFBhSJBKIY9HIPjoRMN0GkbvosYpyBVzXJ opCQ1GRUFzhgLaMrSwZWLPZDh+Os6MGA8hy4BaCImh LWWfAW8vio7CFZiQAtGmA4G2mWQyC0A8CDldIs5HVMMaRJJaMfCmBNLKXNzyBI4QLY7uryV6ZV9BvBBq TDJjPHYryLBpDBd3V49zxFRmTQqlGW0DKOL+Dillon+Lo8MUCEnAPSrTVJyZgSkFZIUWvJjP3WhS4KMx8Qh F5FrGL42hOguriEbLJzwSW5ZJX7hKJXzQGXILL4PbC XihO7cpuSzHyEcITLKBrJdA94vzSQjMUCvCKEvXSXzEf9KMJEfB0KfueDgwPfyynHxMTNkTQTWYN4SFP ulbkLtaRMwhAklGE71qPozAB9NZz9PPaTlRI5cfq2SdHDwBh7MWFPdPG5QAFNqPSEmBFLtNTM1UTCoWl RbHPktYJUdWUYrLAV6CDVqYBFyTB0QMsUpCTWtKZc7 CVdvULQxIVEhkr2FWRYzWMGfYKV3XkGaUNAhNLJoVEieVHUhCBBeTUR6SKGpXTXhIN1DAsOwGEGpFFVi VNJwRFTkUSHvuj9XUXRhBQJtQFK3ANUwJGKtDCHdQEdbQXRnIHXwOAFxYFYoPRUtQN4BZaIjRFBhWMM6 ZHGlZMSxEVJuuv1VRLTwTFGpYwwlDPFtWVWuYMMfUP arYWJzWPIoBHu6FWFcTGImET7FXvPxNTJtVSJfQCAiLKCdJAJtbt1UJROsYJAcITK9FlJnXBEkSUNxKO koUBDqMGT0MyE5IOFiPFUhCS7AFgXoKVNaJWC0RRArTBQrGLHsno8ODTMoXSRlGpV0COLoZYCnWKAaEP ymZZLgXWP8EuanARWjYACyGC6KKiOgJYTiJFk7Sitn RODeSDEwty7SUPBkUMLzJVC3HXGwPHGlXORfRLxjNKSiUAJ2SaF7LTSxWFQkET8BIrVwKWGgCSq4Slrg JYRfJADucd1LWIEsGKXcSGL6BoObUPSfASQnIRdkXLBpRWSjAqohSKArTPUxXW1LGySoFJXdPjJ8SkFf BBJdEVMyma0ULBYgNXXsIJqbWsQrPVByZGYzHRn3sv RneTMuEDs8LY7BX2CqsgAqEnCYXp6Jj508YZM5TYLdFn8FY5zaWz3vWJSzQCYOJj0ZBUs8WHO4TUXzWJ QyLYD4FsG4DRN1IAD7BTInEOF6QEC6AEW+HUpyOoa5JNN3ZjLaPpQjGXonRiwvGKDsGKHzFCkjGtRzGn 9bWLILWh8+CGjofKHatVviIOETWgHuUBJcPLhxVMOJHg7E ID Date Data Source [id number] 05/22/2021 05:11:40 AM EST [facility] Name Value Range Interpretation Code Description Data Stephanie rce(s) Supporting Document(s) Nursing Note [facility] HQDNIf3iHfAEKyGr79/GSXykDKYka6TbYAopASm8YSxzKVYdM0GoUSC2wP3qJNU3VKsEJsKgJrGcIKIe lbm [file] [employer]+9D9OT7//+TZMAhbh9KFzeZndyKI3aX1N0e1pvMupMxh+c5sQpFrWUSsfiBn1AGPmRVod88x8VAjn [file] C7N4KwUNT6IhVtHP8JOn4CGnI3ZVL8nVErBr4CPdD8XyBKOvQbLH5TYZp= ID Date Data Source [id number] 05/22/2021 01:27:[address] [facility] Name Value Range Interpretation Code Description Data Stephanie rce(s) Supporting Document(s) Nursing Note [facility] YGCMKl0gGiORGsPk26/VPXklTQMqc0UyDAreINy1FImhBHYnV4ZiGRM0dU4sVVF0RPyTEzWdPpFzRBHd lbm SiOwfOKnYaNABvAarABbJhOHbxAufkcFEsNJ6TdIF0IAIuM41iBHFkIYKqK6PhCVLpXst+Ea8WMUSwuG KxDY8VSvaH4Mcrv9c5BC4pwO/WvqPoC8UDLMgLXoZqH5qkccCxwJhaE14v6C0XjDHtFfckZ4qI1l+EO5 RdSEXZGpMQbRua21uRnBIcdj3TDigGUIOzq/vVJlqM pfGYI9olYfQfsatwJLCFFisOmt1680W00XPIHYLQ4PRkVdIUzCHcvTW9GFdo23EgZbDbbjqUVibowrpz 9Tlgp3K6kaGDDigK8KB9zGST2UBIi5WirXX00MfjUNyJCrnzAWa5qdKTachrMFn8hlcKmVOfxNZRogD5 vXEVcBEaxeTPnDlBbttzHrYZao0s215eIkNofQF1AF 9nZYOg9Pvz9cVkFPZSdkK7otZVrDIyf4JF5suslWdKFsUOOh/vXrBnTWzKUmTL7aqxq1MIywThFfTTtz 2o4SoFr4yXd8nNut2ULjucGcENIBzRIIzeMwgtT/0OZwc5NXG+7ddBrlScQQeSuHepx9cqlMgYKcvhDT mOLt5VjwwgsgdiVznZs5tl0eanopYhvblzbZ5WfA4y [file] GkKi2AWbRsNtiEEeNbYT8HYOk= ID Date Data Source [id number] 05/22/2021 01:24:18 AM EST [facility] Name Value Range Interpretation Code Description Data Stephanie rce(s) Supporting Document(s) Nursing Note [facility] FOBLNm4aPvBLFcPi29/PTUjfSJEsm6KtSPnpQHc4SQzxWEJqF5NuHBA2aG0uVLX2KHoSGkGzPhXwWFSm lbm [file] QaOQ9ZYx8ZOrV0ZFQ8kVAdTv1KHhM6QAXTNdBgCH1WEWj= ID Date Data Source [id number] 05/21/2021 08:47:[address] [facility] Name Value Range Interpretation Code Description Data Stephanie rce(s) Supporting Document(s) Nursing Note [facility] JVFBBm6bWxGCCuGf34/GQRycBEQqy1SzKDazJOs9BZvsPFVyV1OxEUN9cJ0nVIK6OPwKTrRmLxApYBQs lbm [file] ID Date Data Source [id number] 05/21/2021 07:56:[address] [facility] Name Value Range Interpretation Code Description Data Stephanie rce(s) Supporting Document(s) Nursing Note [facility] HVFZDd6vCgRYNjYu40/XLJcfSWQxz4FxNGwjBJj5QZskBQFrV4JcNRK4cN3yUUE4GLbKRpRnYjCxDHCo lbm [file] MeGPHePkXfXY2UPv2OHrX4JNB5iZYeDl6GUdD0PGmPRbQoYU7WTDb= ID Date Data Source [id number] 05/21/2021 04:35:30 PM EST [facility] Name Value Range Interpretation Code Description Data Stephanie rce(s) Supporting Document(s) ED Provider Notes [facility] GZHIGc1fFrUEFcFz00/UTShuNYGfo1ErNBudFTf7VFmkOFOtJ8DySXZ4eS7nSNY7TRhWXlGfYhLrSQAj lbm [file] SPRING FORMER/LbPJEqHy/Fk+oiMQ/cLf4o4A5cqdCOXEaKb+Pofce24UxNwAxi3YRwiR6NHzJPDo4mrnPBUJV3Z7H [file] v+Mw9uU4N5+bed laster+ip+xS3tt9brvP/TP/LmLW6fFgmFd [file] Z5HlS2V7ZzAeRgJP2PKe5FHgY8ULA7qBMrMg5JBfW5OMYMPsGcPK3HCGk= ID Date Data Source [id number] 05/21/2021 04:07:[address] [facility] Name Value Range Interpretation Code Description Data Stephanie rce(s) Supporting Document(s) ED Triage Notes [facility] HYYRUm4oKnHFRiNt59/HRSvdVAEgf0CkWJvkYKg6IQswFCHfH1DmFZX7nP1lYLO1ZAsNNsYdYkVvYYYo lbm [file] AgICAgICAgICAgICAgICAgICAgICAgICAgICAgICAg ICAgICAgICAgICAgICAgICAgICAgICANCiAgICAgICAgICAgICAgICAgICAgICAgICAgICAgICAgICAg ICAgICAgICAgICAgICAgICAgICAgICAgICAgICAgICAgICAgICAgICAgICAgICAgICAgICAgICAgICAg ICAgICANCiAgICAgICAgICAgICAgICAgICAgICAgIC AgICAgICAgICAgICAgICAgICAgICAgICAgICAgICAgICAgICAgICAgICAgICAgICAgICAgICAgICAgIC AgICAgICAgICAgICAgICANCiAgICAgICAgICAgICAgICAgICAgICAgICAgICAgICAgICAgICAgICAgIC AgICAgICAgICAgICAgICAgICAgICAgICAgICAgICAg ICAgICAgICAgICAgICAgICAgICAgICAgICANCiAgICAgICAgICAgICAgICAgICAgICAgICAgICAgICAg ICAgICAgICAgICAgICAgICAgICAgICAgICAgICAgICAgICAgICAgICAgICAgICAgICAgICAgICAgICAg ICAgICAgICANCiAgICAgICAgICAgICAgICAgICAgIC AgICAgICAgICAgICAgICAgICAgICAgICAgICAgICAgICAgICAgICAgICAgICAgICAgICAgICAgICAgIC AgICAgICAgICAgICAgICAgICANCiAgICAgICAgICAgICAgICAgICAgICAgICAgICAgICAgICAgICAgIC AgICAgICAgICAgICAgICAgICAgICAgICAgICAgICAg ICAgICAgICAgICAgICAgICAgICAgICAgICAgICANCiAgICAgICAgICAgICAgICAgICAgICAgICAgICAg ICAgICAgICAgICAgICAgICAgICAgICAgICAgICAgICAgICAgICAgICAgICAgICAgICAgICAgICAgICAg ICAgICAgICAgICANCiAgICAgICAgICAgICAgICAgIC AgICAgICAgICAgICAgICAgICAgICAgICAgICAgICAgICAgICAgICAgICAgICAgICAgICAgICAgICAgIC AgICAgICAgICAgICAgICAgICAgICANCiAgICAgICAgICAgICAgICAgICAgICAgICAgICAgICAgICAgIC AgICAgICAgICAgICAgICAgICAgICAgICAgICAgICAg ICAgICAgICAgICAgICAgICAgICAgICAgICAgICAgICANCjw/nAAqJ6qhoBGyhyV2R2mjRj8MBu5KFM5w f2JsDZZqXCoirqJgWawNMbBoNSHsPsyGPhu2EHurMJ3AuZWhY4JvT0UaFMhqKQ5SYXKgHGTozWWfZNEz JYKuFmG9XRCrJJauAA0WnJYfIUipINLkGZXqDW9NQD IhN510qmNrAT2DRb4HJyJwKE8gsp1SYZwiIAEnVfzLOgy7DFpsCL3VzJLhzIGpCZRcONYMIhCcO9saf7 LzMSgiWAKGXQpfRQ3Pe2XvtIIuBWq+Xm3UUJ7sa2UjGKsrMAMiKU2lyz1XTZbBGnVnX5SbhAyyKURCMG CtoBYeTLSZv6OpysZktCSVjaSiJTdlKlYKpGQnUMef RDDgOVDMBOD3DHNrNgBwKuDkLcBkWRD7RIUqVJ3aVKpbHI4JSLL7JOvdKWKvZWGuL4mHQkLsXCtuVCNk sTouIH5IMdKjL2JnmvYhqLVlOwFpNKSQSj6+JBxeouPsCktVMiM1TQMte1BxDCv0UO2PYXXiFVyoPE0C WPXryW8yHIswRH8LJqXiOWVyGPTTAaEpU12ypQMgPX i8G4FvJkZlHTRyWdnsULZqMUviSiAnFHFuHcOoCKinPB3+ID4+MLfxDC5GCRdtgqOwZJOsDh6OOGVtGR AvPF3wJBEtLAFnR9R0xNvoSDQGXtVlU7lmenbhDP8xYFJsU961gQfguoNgPVT5EPYnDj2NCXGiAUA5ER RpeHEyGCCzUUWERCljVI4ChGLkFCF3fM9aPYmgEGNx LJWmX8zWLhYojQqcVE32wQezqeIquJTaSCx+Bj2VET5sw1BgHGl7koPoMDzvEQFzBCbsOVIhAYTqVCHm RAR2FWQ2GKZJWkSlVMTnZFKgWTdcPJGvJNNdsp6GHOYjDIXfAADwMjClMBTmWCYzBDruMDZmJSZ4EKX3 XFKfVIEwBY0KZmNjMPXwSJMbRMiyIZJoRVKpze7JAZ MoVJGzKYE5SuFlVVUtZCKwFVfmFPXzHIFvXuK7HDDvMHNwIW4VWpTxCMUhZTRnEESgNBPlBQIath7ZYS ZaAITgCqLjAuIsZGYqVSLuKLooUKCbGRRnFzTcLIDgCAVaZR0QKiYpCQKvMWO6SaDiGUExFMVddc5ATE UbJTGlXqx5DnYnMMXjFNPkCUpkNFTyVYTjZUE4THOj IRUpED9HOeCoLMGxEAP7MQisAKFlMWAnlf7EJZYgNNLdISI9PYGdIEXtXXVbFCiiEQVfYUS3WhkoNEXg VURtNK0FFkXdGWAkVCM9SRVbAVFxHGZnez7WNTXsUZSyQiG5KbTtPPZpFSYhTJlfLMGtXQN7XsN2XSRb ZIYmAA4PQkNiRPPyEVctBjkgGXHsWGYydv5YhUWimS vypm4PPQnVYr9YgQraEXCnHUpjEt0zrQDgFHVkEYUUJu5NmrSwHLWsGRJAHYagGEQqNEHlIVJqLqYoCe TtTuzhEGlwL4WdWOQpKxUfNUH6PSPwNsJ4XnKxCPGoNoTyWkNrATWfASV2NyD1NLXjEqHaPvG6NGX+IF 0gDQo+Zx1Sm9AqklQ6kkEtZOo8CwUtEWdfPPIGAc8N ID Date Data Source [id number] 05/20/2021 07:52:00 PM EST [facility] Name Value Range Interpretation Code Description Data Stephanie rce(s) Supporting Document(s) SARS coronavirus 2 RNA [Presence] in Res piratory specimen by CORDELL with probe detection NEGATIVE [facility] This lab was ordered by [facility] a nd reported by [facility]. ID Date Data Source [id number] 05/17/2021 02:13:00 PM EDT [facility] Name Value Range Interpretation Code Description Data Stephanie rce(s) Supporting Document(s) SARS coronavirus 2 RNA [Presence] in Res piratory specimen by CORDELL with probe detection NEGATIVE [facility] This lab was ordered by [facility] a nd reported by [facility]. ID Date Data Source [id number] 05/15/2021 09:57:00 AM EDT [facility] [address] [id number] NAME: YARELI HATCH#: [id number] PHYSICIAN: DYLAN LOPEZ #: [id number] ADM. DATE: 05/13/21PATIENT : 00 DISCH. DATE: [50}DISCHARGE SUMMARYMHU discharge planNicotine Replacement TherapySmoking Status Current some day smokeriStopEND ENDDICT: 05/15/21956 Electronically SignedTRANS:05/15/21956 DYLAN RIBEIROTRANS BY:DATE SIGNED:05/15/21TIME SIGNED: 57REPORT COPY TO: Name Value Range Interpretation Code Description Data Stephanie rce(s) Supporting Document(s) ID Date Data Source [id number] 05/15/2021 09:25:00 AM EDT [address] DISCHARGE SUMMARYPATIENT NAME: YARELI HACTH MR#: [id number] PHYSICIAN: DYLAN RIBEIROAUTHOR: Dylan Aquino DATE: 05/13/21 #: [id number] DATE:UqiurkeZnqvmukbwaurqj53-injw-dcd single white femaleChief Complaint"I had a suicidal thought due to the fact that I lost my cousin"Reason for AdmissionSuicidal ideations with 2 plan; jumping off a bridge or drinking handsanitizer. She also has increased depression and impulsive behaviorsHistory of Presenting Ajvtmgt50-tjyy-efy female was brought to the emergency department by [facility] with complaints of suicidal ideations with a plan to jump in front of amoving vehicle or drinking and project management. Patient did admit upon arrival tot emergency department that she did attempt to drink hand project management but wasunsuccessful due to staff interventio n at her living facility, [facility]. Uponarrival to the emergency department patient [...] the PSA. Patient is a resident at [facility] and is on an AOT.Patient met [...] asked what happened to her at night herdchristianre to come back she stated "I do [...] disorder, depression, and schizoaffective disorder. Patientcurrently attends [facility] and sees Yamileth for a [...] who lives in a supportive housing facility, [facility] is on an AOT. Patient never graduated [...] second degree andcharges of disorderly conductHospital CourseHospital Zaelnj24-cdqh-cxo female was admitted involuntarily to mental health [...] this. Patient admitted to getting upset at [facility], [facility], because she was not [...] cleared in [facility] emergency department [facility] after reviewing [...] anyphysical or medical complaints.Prior to discharge the [facility] team, her intensive insurance case manager, staff from [facility],Lorraine her AOT coordinator, members from her treatment team at [facility] all joined a video conference to decide the best course oftreatment for the patient as well as take Marilu's request intoconsideration. All parties involved in the meeting decided that it would be agood try for her to go and live with her friend Aroldo, who lives in [place],and to have her services transferred to [facility] as this has been herrequest. It is decided that patient will [facility] her belongings and sign the paperwork necessary todischarge her from [facility] and staff from [facility] will drive her to her friend Celina in [place]. Lorraine, will transfer all the necessary paperwork andarrange for her services to be completed in [place]. Cata, the treatmentcoordinator, is going to be in contact with her outpatient mental healthproviders in [place] to make the proper arrangements for transfer [...] fairDischarge DispositionPatient is being discharged back to [facility] [place]MusculoskeletalMuscle Strength & Tone normalGait normalStation normalMental Status [...] SIGNED: 05/15/21 Electronically SignedTIME SIGNED: 937 DYLAN WHITE RIBEIRO Name Value Range Interpretation Code Description Data Stephanie rce(s) Supporting Document(s) ID Date Data Source [id number] 05/14/2021 09:46:00 AM EDT [address] PSYCHIATRIC ASSESSMENTPATIENT NAME: YARELI HATCH MR#: [id number] PHYSICIAN: DYLAN RIBEIROAUTHOR: Dylan Aquino DATE: 05/13/21 RM#: [id number]-btwb-ypq single white femaleChief Complaint"I had a suicidal thought due to the fact that I lost my cousin"Reason for AdmissionSuicidal ideations with 2 plan; jumping off a bridge or drinking handsanitizer. She also has increased depression and impulsive behaviorsHistory of Presenting Lafnijy65-pdri-mov female was brought to the emergency department by [facility] with complaints of suicidal ideations with a plan to jump in front of amoving vehicle or drinking and project management. Patient did admit upon arrival tot emergency department that she did attempt to drink hand project management but wasunsuccessful due to staff intervention at her living facility, [facility]. Uponarrival to the emergency department patient [...] the PSA. Patient is a resident at [facility] and is on an AOT.Patient met [...] asked what happened to her at night [facility] back she stated "I do [...] disorder, depression, and schizoaffective disorder. Patientcurrently attends [facility] and sees Yamileth for a [...] [facility]. Patient never [...] 05/13 0205Potassium (3.5 - 5.1 mmol/L) 3.8 05/13 0205Chloride (99 - 110 mmol/L) 109 05/13 0205Serum Bicarbonate (20 - 33 mmol/L) 25 05/13 0205Anion Gap (10.0 - 20.0) 9.8 L 05/13 0205BUN (7 - 23 mg/dL) 14 05/13 0205Creatinine (0.500 - 1.300 mg/dL) 0.615 05/13 020Estimated GFR/1.73 m2 (mL/min) > 60 05/13 0205Glucose (70 - 110 mg/dL) 96 05/13 0205Calcium (8.3 - 10.7 mg/dL) 9.3 05/13 0205Total Bilirubin (0.1 - 1.1 mg/dL) 0.3 05/13 0205AST (6 - 38 U/L) 23 05/13 0205ALT (6 - 54 U/L) 45 05/13 0205 Alkaline Phosphatase (45 - 117 U/L) 99 05/13 0205Total Protein (6.0 - 7.8 g/dL) 7.3 05/13 0205Albumin (3.5 - 5.0 g/dL) 3.7 05/13 0205Globulin (2.3 - 3.5 g/dL) 3.6 H 05/13 0205Albumin/Globulin Ratio (1.0 - 2.5) 1.0 05/13 020Serum HCG, Qual (Negative) Negative 05/13 205HematologyWBC (4.0 - 10.5 x10E3/uL) 9.13 05/13 0205RBC (4.20 - 5.40 x10E6/uL) 4.12 L 05/13 205Hgb (12.0 - 16.0 g/dL) 11.9 L 05/13 020Hct (37.0 - 47.0 %) 37.2 05/13 0205MCV (81.0 - 99.0 fL) 90.3 05/13 0205MCH (27.0 - 31.0 pg) 28.9 05/13 0205MCHC (32.7 - 35.6 g/dL) 32.0 L 05/13 0205RDW (11.5 - 14.0 %) 12.9 05/13 205Plt Count (150 - 450 x10E3/uL) 241 05/13 205MPV (6.9 - 9.5 fl) 9.5 05/13 205Immature Gran % (Auto) (0.1 - 2.0 %) 0.2 05/13 020Neut % (Auto) (34 - 64 %) 63.3 05/13 020Lymph % (Auto) (25 - 45 %) 27.4 05/13 0205Mono % (Auto) (1.7 - 10.6 %) 7.7 05/13 020Eos % (Auto) (0.4 - 7.0 %) 1.2 [...] Alcohol (NONE DETECTED g/dL) 0.004 H 05/13 0205UrinesUrine Color Yellow 05/13 015Urine Appearance Turbid 05/13 015Urine pH (5.0 - 8.0) 7.0 05/13 155Ur Specific [place] (1.010 - 1.025) 1.022 05/13 015Urine Protein (Negative) Negative 05/13 0155Urine Ketones (NEGATIVE) Negative 05/13 015Urine Blood (NEGATIVE) Negative 05/13 0155Urine Nitrite (Negative) Negative 05/13 0155Ur Bilirubin Confirm (NEGATIVE) Negative 05/13 0155Urine Urobilinogen (0.2 - 1.0 mg/dL) 1.0 05/13 0155Urine Leukocytes (Negative) Trace 05/13 015Urine RBC (NONE SEEN) 0-2 RBCs/HPF 05/13 155Urine WBC (NONE SEEN) 0-2 WBCs/HPF 05/13 0155Urine Crystals (NONE SEEN) MODERATE AMORPHOUS 05/13 155Urine Bacteria (NONE SEEN) Few 05/13 155 Urine Glucose (NEGATIVE) Negative 05/13 [id number] [id number] BLOOD: Blood Culture - CANCancelled: Cancelled [...] to have her ownpersonal clothing. Cata, the flight operation coordinator, will reach out to [facility] forcollateral information as well as Lorraine [...] in agreement shewill be discharged back to [facility].Assessment/PlanDiagnosis1. Major depressive disorderStatus Chronic2. Bipolar disorder3. [...] rce(s) Supporting Document(s) ID Date Data Source [id number] 05/13/2021 09:59:00 AM EDT [facility] Name Value Range Interpretation Code Description Data [facility] rce(s) Supporting Document(s) LCOVID-19, CORDELL NEGATIVE [facility] This lab was [facility] ID Date Data Source [id number] 05/13/2021 10:56:00 AM EDT [facility] [place] Name Value Range Interpretation Code Description Data [facility] rce(s) Supporting Document(s) COVID-19, CRODELL NEGATIVE NEGATIVE N [facility] Methodology: Isothermal Nucleic Acid Amp lification [...] Emergency Use Authorization. ID Date Data Source [id number] 05/13/2021 02:58:00 AM EDT [facility] Name Value Range Interpretation Code Description Data [facility](s) GLU 96 mg/dL 70-110 [facility] Patients taking Sulfasalazine may have f alsely depressedGlucose levels. Patients taking Sulfapyridine may havefalsely elevated Glucose levels. Patients should be drawnfor Glucose before the initial administration of eitherdrug. BUN 14 mg/dL 7-23 [facility] CRE 0.615 mg/dL 0.500-1.300 [facility] GFR > 60 mL/min [facility] CHLORIDE 109 mmol/L 99-110 [facility] NA 140 mmol/L 136-147 [facility] POTASSIUM 3.8 mmol/L 3.5-5.1 [facility] TCO2 25 mmol/L 20-33 [facility] ANION GAP 9.8 10.0-20.0 [facility] CA 9.3 mg/dL 8.3-10.7 [facility] ALKALINE PHOS 99 U/L 45-117 [facility] TP 7.3 g/dL 6.0-7.8 [facility] ALB 3.7 g/dL 3.5-5.0 [facility] ESRD Dialysis patient Albumin reference range: 2.9-4.4 g/dL GL 3.6 g/dL 2.3-3.5 H [facility] A/G 1.0 1.0-2.5 [facility] T. BILIRUBIN 0.3 mg/dL 0.1-1.1 [facility] [place] Total Bilirubin is n ot recommended forpatients undergoing treatment with eltrombopag (Promacta)due to the potential for falsely elevated results. ALTI 45 U/L 6-54 [facility] Patients taking Sulfasalazine and/or Sul fapyridine may havefalsely depressed ALT levels. Patients should be drawn forALT before the initial administration of either drug. AST 23 U/L 6-38 [facility] Patients taking Sulfasalazine and/or Sul fapyridine may havefalsely depressed AST levels. Patients should be drawn forAST before the initial administration of either drug. ID Date Data Source [id number] 05/13/2021 02:18:00 AM EDT [facility] [place] Name Value Range Interpretation Code Description Data Stephanie rce(s) Supporting Document(s) WBC 9.13 x10E3/uL 4.0-10.5 [facility] RBC 4.12 x10E6/uL 4.20-5.40 [facility] Hemoglobin 11.9 g/dL 12.0-16.0 [facility] Hematocrit 37.2 % 37.0-47.0 [facility] MCV 90.3 fL 81.0-99.0 [facility] MCH 28.9 pg 27.0-31.0 [facility] MCHC 32.0 g/dL 32.7-35.6 [facility] RDW 12.9 % 11.5-14.0 [facility] Platelet count 241 x10E3/uL 150-450 N [facility] ital MPV 9.5 fl 6.9-9.5 [facility] Neutrophils 63.3 % 34-64 [facility] Lymphocytes 27.4 % 25-45 [facility] Monocytes 7.7 % 1.7-10.6 [facility] Eosinophils 1.2 % 0.4-7.0 [facility] Basophils 0.2 % 0.1-2.0 [facility] Imm. Gran. 0.2 % 0.1-2.0 [facility] Abs. Neutro. 5.78 x10E3/uL 1.2-7.6 [facility] [place] Abs. Lymph. 2.50 x10E3/uL 1.0-3.5 [facility] Abs. Stone. 0.70 x10E3/uL 0.1-1.0 [facility] Abs. Eosin. 0.11 x10E3/uL 0.1-0.7 [facility] Abs. Baso. 0.02 x10E3/uL 0.0-0.1 [facility] Abs. Imm. Gran. 0.02 x10E3/uL 0.0-0.1 [facility] spital ANRBC% 0 % 0 [facility] ID Date Data Source [id number] 05/13/2021 02:58:00 AM EDT [facility] [place] Name Value Range Interpretation Code Description Data Stephanie rce(s) Supporting Document(s) HCG QUAL SERUM Negative Negative [facility] ID Date Data Source [id number] 05/13/2021 02:58:00 AM EDT [facility] [place] Name Value Range Interpretation Code Description Data Stephanie rce(s) Supporting Document(s) ETOH 0.004 g/dL NONE DETECTED [facility] ID Date Data Source [id number] 05/13/2021 02:58:00 AM EDT [facility] [place] Name Value Range Interpretation Code Description Data Stephanie rce(s) Supporting Document(s) ACETAMINOPHEN < 2.0 ug/mL 0-30 [facility] ID Date Data Source [id number] 05/13/2021 02:58:00 AM EDT [facility] [place] Name Value Range Interpretation Code Description Data Stephanie rce(s) Supporting Document(s) SALICYLATE < 1.7 mg/dL 0.0-20.0 [facility] ID Date Data Source [id number] 05/13/2021 02:41:00 AM EDT [facility] [place] Name Value Range Interpretation Code Description Data Stephanie rce(s) Supporting Document(s) PCP VISTA NEG NEGATIVE [facility] MINIMUM LEVEL OF DETECTION IS 25 ng/ml BENZODIAZEPINES POS NEGATIVE [facility] POSITIVE RESULTS UNCONFIRMEDMINIMUM LEVE L OF DETECTION IS 200 ng/ml COCAINE VISTA NEG NEGATIVE [facility] MINIMUM LEVEL OF DETECTION IS 300 ng/ml AMPHETAMINES NEG NEGATIVE [facility] MINIMUM LEVEL OF DETECTION IS 1000 ng/ml BARBITURATES [facility] CUTOFF CONCENTRATION IS 200 ng/ml CANNABINOIDS NEG NEGATIVE [facility] CUTOFF CONCENTRATION IS 50 ng/ml METHADONE VISTA NEG NEGATIVE [facility] MINIMUM LEVEL OF DETECTION IS 300 ng/ml OPIATE VISTA NEG NEGATIVE [facility] MINIMUM DETECTION LEVEL IS 300 ng/ml ID Date Data Source [id number] 05/13/2021 02:30:00 AM EDT [facility] [place] Name Value Range Interpretation Code Description Data Stephanie rce(s) Supporting Document(s) URINE COLOR Yellow [facility] UAPR Turbid [facility] UGLU Negative NEGATIVE [facility] URINE BILIRUBIN [facility] UKET Negative NEGATIVE [facility] USG 1.022 1.010-1.025 [facility] UBLO Negative NEGATIVE [facility] UpH 7.0 5.0-8.0 [facility] UPRO Negative Negative [facility] UUB 1.0 mg/dL 0.2-1.0 [facility] UNIT Negative Negative [facility] ULEU Trace Negative [facility] ID Date Data Source [id number] 05/13/2021 02:30:00 AM EDT [facility] Name Value Range Interpretation Code Description Data Stephanie rce(s) Supporting Document(s) URINE RBC 0-2 RBCs/HPF NONE SEEN [facility] URINE WBC 0-2 WBCs/HPF NONE SEEN [facility] URINE BACTERIA Few [facility] EPI. Moderate NONE SEEN [facility] URINE CRYSTAL MODERATE AMORPHOUS NONE SEEN [facility] ID Date Data Source [id number] 05/14/2021 01:39:00 AM EDT [facility] [place] Physician DocumentationClaxton-Naveen Hinkle edical CenterName: Yareli DuvallAge: 20 yrsSex: FemaleDOB: 2000MRN: [id number] Date: 05/13/2021Time: 01:43Account#: [id number] [id number] MD: None, noneED Physician Rebekah Groverposition Summary:05/13/21 23:47Hospitalization OrderedHospitalization Status: Inpatient AdmissionbrProvider: Anjel [...] was also said to haveattemptedto consume hand project management and active self- harm as well. Patient well-known toED stafffor multiple attempts.Historical:- Allergies: Haldol; Risperdal;- Home Meds:1. aripiprazole 400 mg intramuscular suspension,extended release syringe 400 ywudnnz55 days2. ibuprofen 400 mg Oral tablet 1 [...] 97.4; Pulse Ox 98% on R/A; Pain0/10; kt/1:20 BP 128 / 54; Pulse 69; Resp [...] during both of theseepisodes..05/201:55 Order name: Acetaminophen Tmttiik71/0201:55 Order name: CBC with xpbrih55:55 Order name: CMPf:55 Order name: COVID-19 PROFILE+LAB:55 Order name: UKTRsg58:55 Order name: Qzynjavtf14/0201:55 Order name: Salicylate Qfketny47/0201:55 Order name: Serum HCG Bwmwpnwtfbwfo11/0201:55 Order name: Triage - Drug Vyqgnlel55/0201:55 Order name: UAf:55 Order name: Diet - Mental Health Tray (call dietary); Complete Time:00::55 Order name: Belongings List; Complete Time: 00:55 Order name: Document Weight and Height for BMI; Complete Time: 00::55 Order name: Mental Health Evaluation; Complete Time: 00::55 Order name: Mental Health Level 3; Complete Time: 00:55 Order name: VS q shift; Complete Time: 00:42fwDispensed Medications:08:45 Drug: diphenhydrAMINE 50 mg [diphenhydramine 50 mg/mL injection solution(1 mL)] Route: tlmIM; Site: left vastus lateralis;09:54 Follow up: Response: No adverse :46 Drug: LORazepam 2 mg [lorazepam 2 mg/mL injection solution (1 mL)] Route:IM; Site: tlmleft vastus lateralis;09:54 Follow up: Response: No adverse wxtlgjmvysq12:47 Drug: Geodon 20 mg Route: IM; Site: right deltoid;ef109:54 Follow up: Response: No adverse gerhohfqftn64:35 Drug: Geodon 20 mg [ziprasidone 20 mg/mL (final concentration)intramuscular solution ml4(1 mL)] Route: IM; Site: right gluteus;18:35 Drug: LORazepam 2 mg [lorazepam 2 mg/mL injection solution (1 mL)] Route:IM; Site: nt0xvasy deltoid;18:35 Drug: diphenhydrAMINE 50 mg [diphenhydramine 50 mg/mL injection solution(1 mL)] Route: ml4IM; Site: left deltoid;21:47 Not Given (Patient Refused): Topiramate 75 mg PO :48 Not Given (Patient Refused): Loratadine 10 mg PO ztuzyy890:48 Not Given (Patient Refused): Montelukast 10 mg PO pxtylh420:48 Not Given (Patient Refused): Propranolol 10 mg PO :48 Not Given (Patient Refused): sertraline 50 mg PO xuujme062:55 CANCELLED (Physician Discretion): Zosyn 3.375 grams IVPB /0301:20 Drug: Prazosin 2 mg [prazosin 1 mg capsule (2 caps)] Route: PO;jw501:20 Drug: Propranolol 10 mg [propranolol 10 mg tablet (1 tabs)] Route: PO;aq3Wqzoeiykut:Dispatcher [employer] Magaly Manjarrez RN RN tlmHNils mark MD MD sw2WuudkFortunato humphrey RN RN lx1MrtinlbyAmi Medrano RN RN [id number] garcias MD MD [place], [place] RN RN fwLyformerly [facility], Danae RN RN kc4Tfubnkyfczq: (The following items were deleted from the chart)05/223:55 23:49 Zosyn 3.375 grams IVPB once ordered. brbr23:56 23:49 Call Lab ordered. br br Name Value Range Interpretation Code Description Data Stephanie rce(s) Supporting Document(s) ID Date Data Source [id number] 05/14/2021 01:39:00 AM EDT [facility] [place] Nurse's NotesClCo[facility] Tootie terName: Yareli DuvallAge: 20 yrsSex: FemaleDOB: 2000MRN: [id number] Date: 05/13/2021Time: 01:43Account#: [id number] 3Polga SMITH: None, noneDiagnosis: Schizophrenia, unspecifiedPresentation:05/201:45 Presenting complaint: Brought in by [facility] Police officers #[id number], #[id number] forcomplaints of ktsuicidal ideation with plan to jump in front of a moving vehicle, alsoattempted todrink hand project management but was unsuccessful.02:26 International Travel Fever No. Communicable Disease Screen: Negative forfever>/= 100 fwdegrees Fahrenheit. Communicable disease screen is negative. (-) rash orunusual skinlesion (-) travel/contact with traveler (-) respiratory symptoms.Communication.Communication Speaks [place]? Yes, is preferred language.02:26 Acuity: Triage 2fw02:26 [...] of amount of people live, such as fpc, family care, fpc, etc?yes. Haveyou traveled to a location with widespread or ongoing COVID-19 community spreadoroutsregional hospital [facility]? no Have you traveled internationally or had contact withmeonethat has traveled and has been ill in [...] 400 mg intramuscular suspension,extended release syringe 400 xlyjqgq72 days2. ibuprofen 400 mg Oral tablet 1 [...] apparent distress at this time. Nochanges from bu8ndvpacfpuk documented assessment.05/300:38 Reassessment: Patient appears in no apparent distress at this time. Nochanges from in0ytnwncceac documented assessment.Psychosocial:05/219:29 SAFE Act Report Not Completed. [...] Ptdenies selfharm. Pt [facility]. [facility]. Pt has a diagnosis [...] 2020 overdose Other: BPD, ADHD.MentalHealth Admissions: 05/06/21, [facility] Current Outpatient Mental HealthServices:Therapist / Agency: Tamy/SUGAR. [...] notified ofpatients status at 23:13, Mental Health SURGERY AIDE made aware of pt status at 22:50,JOSE LUIS Jo. Disposition: Medically cleared for disposition by Dr Grover. PsychiatricConsultis performed by phone with Dr Dylan Ribeiro NP The patient is admitted to [facility].23:15 Legal Status: Patient's legal status will be Emergency: 9.39. Commitmentpapers are nhcompleted. Pt is provided with a copy of her legal status and rights. DSM-V DXAxis Idiagnosis: Schizoaffective D/O [place] II diagnosis: Deferred [place] III diagnosis:None.[place] IV diagnosis: poo impulse control. Poor coping skills. InsurancePre-Certification: Not Required. [facility] Admission Criteria: The patient isexperiencingsuicidal ideation. The patient requires continuous observation and/or controltoprotect self, others or property. The patient's care requires a multi-modaltreatmentplan under close supervision and coordination due to the complexity andseverity of thepatient's symptoms. The patient requires administration and monitoring ofpsychoactivemedications by skilled medical providers due to the side effects of thepsychoactivemedications or significant dosage adjustments. Awaiting transfer to [facility].Transition ofcare to Pt will be escorted by PSA and MHU RN. The patient is not a servicemember ormilitary dependent. Elliott Suicide Severity Rating Scale: Suicidal IdeationRating 5;Intensity of Ideations Rating 25; Suicidal Behavior Rating 0.Psych:02:00 Subjective: Patient's mood is sad, Delusions are denied, Hallucinationsare denied tx3Saqwxn thoughts of suicide. Plan for suicide is [...] Resp 18; Temp 97.3; Pulse Ox 96% ;jw51/0201:47 Pain Scale: AdultktED Course:05/201:44 Patient arrived in ED.kt01:45 None, none is Private Physician.kt01:58 Patient has correct armband on for positive identification. Bed in lowposition. Sitter fwat bedside. Verbal reassurance given. Pillow given. Head of bed elevated.02:04 Patient placed in exam room in view of nurse Patient notified of waittime. kt02:06 Zeeshan Grover MD is Attending Physician.br02:26 Triage completed.fw07:28 Appears to be sleeping.tlm07:28 Psychosocial Bottom Sander.tlm07:28 Sitter at bedside. Diet tray given.tlm07:50 Appears agitated. attempting multiple times to leave through the doors,security tlmofficer hayley is able to redirect her i have offered her something to take edgeradha, ambrosio acknowledge screen writer.07:51 No Physician assisted procedures completed.tlm08:46 Notified [...] No apparent distress. Resting quietly.jw500:38 Sitter at bedside.gg8Pgyitomlqiiq Medications:05/208:45 Drug: diphenhydrAMINE 50 mg [diphenhydramine 50 mg/mL injection solution(1 mL)] Route: tlmIM; Site: left vastus lateralis;09:54 Follow up: Response: No adverse pipqtlamdhf20:46 Drug: LORazepam 2 mg [lorazepam 2 mg/ mL injection solution (1 mL)] Route:IM; Site: tlmleft vastus lateralis;09:54 Follow up: Response: No adverse wawnmufrmqr75:47 Drug: Geodon 20 mg Route: IM; Site: right deltoid;ef109:54 Follow up: Response: No adverse ijbmupcolik05:35 Drug: Geodon 20 mg [ziprasidone 20 mg/mL (final concentration)intramuscular solution ml4(1 mL)] Route: IM; Site: right gluteus;18:35 Drug: LORazepam 2 mg [lorazepam 2 mg/mL injection solution (1 mL)] Route:IM; Site: wb4bfepy deltoid;18:35 Drug: diphenhydrAMINE 50 mg [diphenhydramine 50 mg/mL injection solution(1 mL)] Route: ml4IM; Site: left deltoid;21:47 Not Given (Patient Refused): Topiramate 75 mg PO rzkwna689:48 Not Given (Patient Refused): Loratadine 10 mg PO duikvt070:48 Not Given (Patient Refused): Montelukast 10 mg PO iazvsi377:48 Not Given (Patient Refused): Propranolol 10 mg PO jbopqh832:48 Not Given (Patient Refused): sertraline 50 mg PO :55 CANCELLED (Physician Discretion): Zosyn 3.375 grams IVPB onltja16/0301:20 Drug: Prazosin 2 mg [prazosin 1 mg capsule (2 caps)] Route: PO;jw501:20 Drug: Propranolol 10 mg [propranolol 10 mg tablet (1 tabs)] Route: PO;ev3Yepgmje:05/223:47 Decision to Hospitalize by Provider.br0301:20 Disposition: Admitted to Psych with chart.xo6Gtiojwgkn: unchangedInstructed on need for admit, Demonstrated understanding of instructions.Discharge Assessment: Patient verbalized understanding of dispositioninstructions.Patient has no functional deficits.01:39 Patient left the ED.wp1Qrwzodnoyk:Magaly Gray RN RN tlmTerwilliger, Katherine, RN RN ktWhite, Jason, RN RN fq3OwwxzrstAmi Medrano RN RN ef1Roberts, Brandon, MD MD brWest, JOSE LUIS Mariscal RN, Nicole nhLynch, McKenzie, RN RN rh3Kndmubcufxy: (The following items were deleted from the chart)05/207:28 07:28 Awaiting disposition, liaqct51:17 23:13 Disposition: Medically cleared for disposition by Dr Grover.Psychiatric Consult [facility]11/0300:37 00:37 Primary Nurse role handed off by Danae Ordoñez, JOSE LUIS xd3fs619:37 00:37 Fortunato Mark, RN is Primary Nurse. mm7vu908:25 05/13 01:00 Subjective: Patient's mood is sad, Delusions are denied,Hallucinations are nx1spkbgj Having thoughts of suicide. Plan for suicide is see ntriage jw511/0301:25 05/13 01:00 Objective: Patient is cooperative, Speech is soft, Affect isflat, jw5 jw511/0301:25 05/13 01:00 Interventions: Removed personal items and placed in bag.Patient placed in io5zcdlssrg gown. Searched person for dangerous items. Urine collected and sentfor urinedrug test. Observation Level Level 3 Sitter needed. Provider notified. Nando Charge nurse notified. Fortunato Mark RN Level 3 order placed. jw5 Name Value Range Interpretation Code Description Data Stephanie rce(s) Supporting Document(s) ID Date Data Source [id number] 05/08/2021 12:28:00 PM EDT [facility] [address] [id number] NAME: YARELI HATCH#: [id number] PHYSICIAN: HUBER MEDINA #: [id number] ADM. DATE: 05/06/21PATIENT : 00 DISCH. DATE: [50}DISCHARGE SUMMARYMHU discharge planNicotine Replacement TherapySmoking Status Current some day smokeriStopEND ENDDICT: 05/08/21 1228 Electronically SignedTRANS:05/08/21 1228 DYLAN RIBEIROTRANS BY:DATE SIGNED:05/08/21TIME SIGNED: 1228REPORT COPY TO: Name Value Range Interpretation Code Description Data Stephanie rce(s) Supporting Document(s) ID Date Data Source [id number] 05/08/2021 12:14:00 PM EDT [facility] DISCHARGE SUMMARYPATIENT NAME: YARELI HATCH MR#: [id number] PHYSICIAN: BROOKLYN ONEILL MDAUTHOR: Dylan Aquino DATE: 05/06/21 RM#: [id number] DATE:ExnrnthRqmduotzvfmarn47-dbhq-qhy single white femaleChief Complaint"I was impulsive and did something stupid"Reason for AdmissionUnsafe behaviors with a history of poor impulse control and suicidal ideations.Patient was unable to contract for safety prior to admissionHistory of Presenting Xmkjflm69-vbhs-ylf female who was admitted to mental health on an involuntary statusafter ingesting a bottle of shampoo. Patient was brought here by police aftershe eloped numerous times from [facility]. [facility] arrival to [facility] patient stated she was discharged before she [...] to her that she is on an [facility] list [facility] as her place of [...] female who lives in a supportive housing facility,[facility]. Patient was never graduated from [...] second degree and chargesof disorderly conductHospital CourseHospital Hakzlj34-qclw-dce female was admitted to mental health on [...] planwas worked out with Madelin Michel the flight operation coordinator, and [facility]. At time of discharge patient [...] by opening up to the staff at [facility] shefeels this would be an [...] is also confirmed by the staff from [facility].Patient's Discharge ConditionVital SignsVital Signs-LastResult Date TimeB/P 132/78 05/08 0822Pulse Ox 99 05/07 1234Temp 97.7 05/07 1234Pulse 63 05/07 1234Resp 16 05/07 1234Patient's Discharge ConditionDischarge Date 05/08/21Discharge Conditon stableDischarge DispositionPatient is to be discharged back [facility]ExaminationMusculoskeletalMuscle Strength & Tone normalGait normalStation normalMental [...] rce(s) Supporting Document(s) ID Date Data Source [id number] 05/07/2021 05:08:00 PM EDT [address] [id number]ALTH HISTORY AND PHYSICALPATIENT NAME: YARELI HATCH MR#: [id number] PHYSICIAN: BROOKLYN ONEILL, MDAUTHOR: Ericka Dean MD DATE: 05/06/21 RM#: [id number] Complaint/Admit ReasonIngested shampoo/conditioner to end her lifeHistory of Presenting IllnessHISTORY IS LIMITED THE PT REFUSED TO BE SEEN BY THE MEDICINE OAUSVFD78 yo F who presents to the hospital with police because she ingested shampooand conditoner in an effort to end her life. [facility] and told staff she did [...] seen by the medicine serviceExamVital SignsVital Signs-24 HRS05/06534903 7629 0828 1234Temp 97.5 97.7Pulse 77 63Resp 16 16B/P 128/83 123/78 136/84 115/75B/P MeanPulse Ox 96 99O2 DeliveryO2 Flow FznkVfF9Vfjm ReviewLaboratory DataRecent Labs-48 hours05/06192963 0051ChemistrySodium (136 - 147 mmol/L) 139Potassium (3.5 [...] TurbidUrine pH (5.0 - 8.0) 8.0Ur Specific [place] (1.010 - 1.025) 1.022Urine Protein (Negative) TraceUrine [...] psych serviceDATE SIGNED: 05/07/21 Electronically SignedTIME SIGNED: 2962 ERICKA DEAN MD Name Value Range Interpretation Code Description Data Stephanie rce(s) Supporting Document(s) ID Date Data Source [id number] 05/07/2021 12:49:00 PM EDT [address] PSYCHIATRIC ASSESSMENTPATIENT NAME: YARELI HATCH MR#: [id number] PHYSICIAN: BROOKLYN ONEILL MDAUTHOR: Dylan Aquino DATE: 05/06/21 RM#: [id number]-algg-uxu single white femaleChief Complaint"I was impulsive and did something stupid"Reason for AdmissionUnsafe behaviors with a history of poor impulse control and suicidal ideations.Patient was unable to contract for safety prior to admissionHistory of Presenting Uivoslc20-mkwc-mgy female who was admitted to mental health on an involuntary statusafter ingesting a bottle of shampoo. Patient was brought here by police aftershe eloped numerous times from [facility]. Upon arrival to [facility] patient stated she was discharged before she [...] [facility] [...] female who lives in a supportive housing facility,[facility]. Patient was never graduated from [...] 51Hct (37.0 - 47.0 %) 38.3 05/06 005MCV [...] (NEGATIVE) NEG 05/06 004Methadone Screen (NEGATIVE) NEG 05/06 0041Acetaminophen (0 - 30 ug/mL) < 2.0 05/06arbiturate Screen (NEGATIVE) NEG 05/06 004hencyclidine Screen (NEGATIVE) NEG 05/06 0041Amphetamines Screen (NEGATIVE) NEG 05/06 004enzodiazepines (NEGATIVE) POS H 05/06 0041Cocaine Screen (NEGATIVE) NEG 05/06 0041Cannabinoids (NEGATIVE) NEG 05/06 004thyl Alcohol (NONE DETECTED g/dL) 05/06 51UrinesUrine Color Y ellow 05/06 41Urine Appearance Turbid 05/06 41Urine pH (5.0 - 8.0) 8.0 05/06 Specific [place] (1.010 - 1.025) 1.022 05/06 Protein (Negative) Trace 05/06 Ketones (NEGATIVE) Negative 05/06 Blood (NEGATIVE) Negative 05/06 Nitrite (Negative) Negative 05/06 Bilirubin Confirm (NEGATIVE) Negative 05/06 Urobilinogen (0.2 - 1.0 mg/dL) 1.0 05/06 Leukocytes (Negative) Negative 05/06 Glucose (NEGATIVE) Negative 05/06 HCG, Qual (Negative) Negative 05/06dditional NotesPlan:Patient will be placed on a level 3 observation for continued monitoring forsafety as she recently said she has no thoughts of wanting to harm herself andwas able to state she felt safe. Patient will be monitored by staff in [facility] the nurses station for the [...] medicationuse and the medications efficacy. Madelin, the flight operation coordinator will be incontact with [facility] and the [facility] team Assessment/PlanDiagnosis1. Major depressive disorderStatus Chronic2. [...] rce(s) Supporting Document(s) ID Date Data Source [id number] 05/06/2021 01:31:00 AM EDT [facility] [place] Name Value Range Interpretation Code Description Data Stephanie rce(s) Supporting Document(s) ACETAMINOPHEN < 2.0 ug/mL 0-30 [facility] Date Data Source [id number] 05/06/2021 01:31:00 AM EDT [facility] [place] Name Value Range Interpretation Code Description Data Stephanie rce(s) Supporting Document(s) SALICYLATE < 1.7 mg/dL 0.0-20.0 [facility] ID Date Data Source [id number] 05/06/2021 01:31:00 AM EDT [facility] [place] Name Value Range Interpretation Code Description Data Stephanie rce(s) Supporting Document(s) ETOH NONE DETECTED [facility] NONE DETECTED ID Date Data Source [id number] 05/06/2021 01:31:00 AM EDT [facility] [place] Name Value Range Interpretation Code Description Data Stephanie rce(s) Supporting Document(s) GLU 99 mg/dL 70-110 [facility] Patients taking Sulfasalazine may have f alsely depressedGlucose levels. Patients taking Sulfapyridine may havefalsely elevated Glucose levels. Patients should be drawnfor Glucose before the initial administration of eitherdrug. BUN 13 mg/dL 7-23 [facility] CRE 0.661 mg/dL 0.500-1.300 [facility] GFR > 60 mL/min [facility] CHLORIDE 109 mmol/L 99-110 [facility] NA 139 mmol/L 136-147 [facility] POTASSIUM 3.9 mmol/L 3.5-5.1 [facility] TCO2 25 mmol/L 20-33 [facility] ANION GAP 8.9 10.0-20.0 L [facility] CA 9.3 mg/dL 8.3-10.7 [facility] ALKALINE PHOS 110 U/L 45-117 [facility] TP 8.0 g/dL 6.0-7.8 H [facility] ALB 4.0 g/dL 3.5-5.0 [facility] ESRD Dialysis patient Albumin reference range: 2.9-4.4 g/dL GL 4.0 g/dL 2.3-3.5 H [facility] A/G 1.0 1.0-2.5 [facility] T. BILIRUBIN 0.4 mg/dL 0.1-1.1 [facility] [place] Total Bilirubin is n ot recommended forpatients undergoing treatment with eltrombopag (Promacta)due to the potential for falsely elevated results. ALTI 58 U/L 6-54 H [facility] Patients taking Sulfasalazine and/or Sul fapyridine may havefalsely depressed ALT levels. Patients should be drawn forALT before the initial administration of either drug. AST 32 U/L 6-38 N [facility] Patients taking Sulfasalazine and/or Sul fapyridine may havefalsely depressed AST levels. Patients should be drawn forAST before the initial administration of either drug. ID Date Data Source [id number] 05/06/2021 01:10:00 AM EDT [facility] [place] Name Value Range Interpretation Code Description Data Stephanie rce(s) Supporting Document(s) WBC 8.31 x10E3/uL 4.0-10.5 [facility] RBC 4.31 x10E6/uL 4.20-5.40 [facility] Hemoglobin 12.7 g/dL 12.0-16.0 [facility] Hematocrit 38.3 % 37.0-47.0 [facility] MCV 88.9 fL 81.0-99.0 [facility] MCH 29.5 pg 27.0-31.0 [facility] MCHC 33.2 g/dL 32.7-35.6 [facility] RDW 12.5 % 11.5-14.0 [facility] Platelet count 274 x10E3/uL 150-450 [facility] ital MPV 9.8 fl 6.9-9.5 H [facility] Neutrophils 69.5 % 34-64 [facility] Lymphocytes 23.2 % 25-45 L [facility] Monocytes 6.0 % 1.7-10.6 [facility] Eosinophils 0.5 % 0.4-7.0 [facility] Basophils 0.4 % 0.1-2.0 [facility] Imm. Gran. 0.4 % 0.1-2.0 [facility] Abs. Neutro. 5.78 x10E3/uL 1.2-7.6 [facility] [place] Abs. Lymph. 1.93 x10E3/uL 1.0-3.5 [facility] Abs. Stone. 0.50 x10E3/uL 0.1-1.0 N [facility] l Abs. Eosin. 0.04 x10E3/uL 0.1-0.7 [facility] Abs. Baso. 0.03 x10E3/uL 0.0-0.1 [facility] Abs. Imm. Gran. 0.03 x10E3/uL 0.0-0.1 N [facility] spital ANRBC% 0 % 0 [facility] ID Date Data Source [id number] 05/06/2021 12:41:00 AM EDT [facility] Name Value Range Interpretation Code Description Data Stephanie rce(s) Supporting Document(s) LCOVID-19, CORDELL NEGATIVE [facility] This lab was ordered by [facility] and reported by [facility]. ID Date Data Source [id number] 05/06/2021 01:27:00 AM EDT [facility] [place] Name Value Range Interpretation Code Description Data Stephanie rce(s) Supporting Document(s) PCP VISTA NEG NEGATIVE [facility] MINIMUM LEVEL OF DETECTION IS 25 ng/ml BENZODIAZEPINES POS NEGATIVE [facility] POSITIVE RESULTS UNCONFIRMEDMINIMUM LEVE L OF DETECTION IS 200 ng/ml COCAINE VISTA NEG NEGATIVE [facility] MINIMUM LEVEL OF DETECTION IS 300 ng/ml AMPHETAMINES [facility] NEGAT[facility] MINIMUM LEVEL OF DETECTION IS 1000 ng/ml BARBITURATES [facility]G [facility]GAT[facility] CUTOFF CONCENTRATION IS 200 ng/ml CANNABINOIDS [facility]G NEGATIVE [facility] CUTOFF CONCENTRATION IS 50 ng/ml METHADONE VISTA NEG NEGATIVE [facility] al MINIMUM LEVEL OF DETECTION IS 300 ng/ml OPIATE VISTA NEG NEGATIVE [facility] MINIMUM DETECTION LEVEL IS 300 ng/ml ID Date Data Source [id number] 05/06/2021 01:25:00 AM EDT [facility] [place] Name Value Range Interpretation Code Description Data Stephanie rce(s) Supporting Document(s) COVID-19, CORDELL NEGATIVE NEGATIVE [facility] Methodology: Isothermal Nucleic Acid Amp lification [...] Emergency Use Authorization. ID Date Data Source [id number] 05/06/2021 01:11:00 AM EDT [facility] [place] Name Value Range Interpretation Code Description Data Stephanie rce(s) Supporting Document(s) HCG QUAL URINE Negative Negative [facility] l ID Date Data Source [id number] 05/06/2021 01:11:00 AM EDT [facility] Name Value Range Interpretation Code Description Data Stephanie rce(s) Supporting Document(s) URINE COLOR Yellow [facility] UAPR Turbid [facility] UGLU Negative NEGATIVE [facility] URINE BILIRUBIN [facility] UKET Negative NEGATIVE [facility] USG 1.022 1.010-1.025 [facility] UBLO Negative NEGATIVE [facility] UpH 8.0 5.0-8.0 [facility] UPRO Trace Negative [facility] UUB 1.0 mg/dL 0.2-1.0 [facility] UNIT Negative Negative [facility] ULEU Negative Negative [facility] ID Date Data Source [id number] 05/06/2021 04:51:00 PM EDT [facility] [place] Physician DocumentationClaxSaud Hinkle edical CenterName: Yareli DuvallAge: 20 yrsSex: FemaleDOB: 2000MRN: [id number] Date: 05/06/2021Time: 00:32Account#: [id number] 5BPrivate MD:ED Physician Richei العليposition Summary:05/06/21 13:58Hospitalization OrderedHospitalization Status: Inpatient AdmissionseProvider: [...] 37.12 (104.33 kg, 167.64 cm)tp200:37 Pain Scale: Pnyminj5JWC:00:47 Patient medically screened.br06:44 Data reviewed: vital signs, nurses notes, EMS record, old medicalrecords, lab test brresult(s).11:37 ED course: Patient has refused to comply with staff, is verbally abusiveand sedisruptive, and is being physically restrained at this time. She has yyalkljz55 mg ofIM Geodon and will get 2 mg of IM Ativan..04/2600:38 Order name: Acetaminophen Level; Complete Time: 10:76cr075/0:32 Interpretation: Within normal limits.se04/2600:38 Order name: CBC with diff; Complete Time: 10:39rl101/0:32 Interpretation: Within normal limits.se04/2600:38 Order name: CMP; Complete Time: 10:40ub569/2610:33 Interpretation: Normal except: TP 8.0; ALTI 58.se0:38 Order name: COVID-19 PROFILE+LAB; Complete Time: 10:93yl2270:33 Interpretation: Within normal limits.se04/2600:38 Order name: ETOH; Complete Time: 10:78hf257/2610:33 Interpretation: Within normal limits.se0:38 Order name: Jdhyngija820/0:38 Order name: Salicylate Level; Complete Time: 10:42to057/2610:33 Interpretation: Within normal limits.se0:38 Order name: Triage - Drug Screen; Complete Time: 10:95ld367/2610:33 Interpretation: Normal except: BENZODIAZEPINES POS.se0:38 Order name: UA; Complete Time: 10:39oh599/2610:33 Interpretation: Within normal limits.se2600:38 Order name: Urine HCG Qualitative; Complete Time: 10:28xj463/2610:33 Interpretation: Within normal limits.:38 Order name: Diet - Mental Health Tray (call dietary); Complete Time:00:42 tp0:38 Order name: Belongings List; Complete Time: 13:64sa837/2600:38 Order name: Document Weight and Height for BMI; Complete Time: 00:12cn199:38 Order name: Mental Health Evaluation; Complete Time: 13:37mj950:38 Order name: Mental Health Level 3; Complete Time: 13:57tv008:38 Order name: VS q shift; Complete Time: 00:81lk5Eipstjlmz Medications:09:23 Drug: Ondansetron 8 mg Route: PO;jl11:41 Fol low up: Response: Nausea is ocfnmlnaxhk750:29 Drug: Geodon 20 mg Route: IM; Site: left deltoid;ef113:48 Follow up: Response: Anxiety uirnagvuxrt042:38 Drug: LORazepam 2 mg Route: IM; Site: right vastus lateralis;ef113:48 Follow up: Response: Anxiety okigdwfvatp6Hvrnvswmej:Dispatcher [employer] Kylie Fishman MD MD seHilborne, Erica RN RN fj7YdMtiziBertha Collier RN RN jlPutney, Taylor, RN RN be7ToyeyddZeeshan browne MD MD br Name Value Range Interpretation Code Description Data Stephanie rce(s) Supporting Document(s) ID Date Data Source [id number] 05/06/2021 04:51:00 PM EDT [facility] [place] Nurse's NotesClaxton-Naveen Medical Tootie terName: Yareli DuvallAge: 20 yrsSex: FemaleDOB: 2000MRN: [id number] Date: 05/06/2021Time: 00:32Account#: [id number] 5BPrivate SMITH:Diagnosis: Major depressive disorder, recurrent, unspecified;Borderlinepersonality disorderPresentation:04/2600:34 Presenting complaint: Patient states: discharged from mental health floor05/05/21. qi9Zildz a bottle of shampoo. [facility], police brought pthere. Ptstates she was not [...] of amount of people live, such as fpc, familycare,fpc, etc? no. Have you traveled to a location with widespread or ongoingCOVID-19community spread or outside of [facility]? no Have you traveled internationallyor hadcontact with someone that has traveled and has been ill in the past 3 weeks? noHaveyou received the COVID vaccine? No. Communicable Disease Screen: Negative forfever>/=100 degrees Fahrenheit. Communicable disease screen is negative. CommunicationSpeaksEnglish? Yes, is preferred language.00:34 Acuity: Triage 8et799:34 Acuity Assignment: Triage 4oz021:34 Method Of Arrival: Steemvjf1Wyggsh Assessment:00:36 General: Appears in no apparent distress, Behavior is appropri ate forage, cooperative. mp0Etxtza Screening: (1)Signs/symptoms infection No. Pain: Denies pain. [...] 400 mg intramuscular suspension,extended release syringe 400 udervvu64 days2. ibuprofen 400 mg Oral tablet 1 [...] threats or abuse. Denies injuries from another.Nutritional tu7cputahuom: No deficits noted. Offer of HIV testing: patient was previouslyofferedscreening. Fall Risk None identified.Assessment:00:42 Reassessment: No changes from previously documented assessment.tp211:05 General: pt repeatedly walking out of unit to doorway. does not walk outand easily klpredirected back in. PSA aware.11:29 Reassessment: attempted to elope; uncooperative and attempting to assaultstaff; code pe6hauygc called.11:39 Reassessment: screaming continuing to assault staff; placed in restrains.ef112:30 Reassessment: Patient states feeling better. Patient states symptoms haveimproved. klpreleased from restraints and walked to without incident.13:47 Reassessment: Patient appears in no apparent distress at this time.cr5Eqxpxmiboseh:09:59 SAFE Act Report Not Completed. Intervention: Observation Level 3. Mentalhealth consult nhis initiated at 09:59.10:46 Referral Information: Evaluation referral is generated by a policeagency: [facility]. The patient was referred for evaluation because Pt states she drank abottle ofshampoo last night and that she was [facility] where she elopedand wasbrought here on a pickup order.11:02 Subjective: The patients chief complaint is Pt presents to the ED withState Police on mda pickup order due to the [facility], pt [facility] and does not know if they will [...] kill herself. Pt states she was [facility] where she eloped three times. Pt states on the third [facility] where the State Police had a pickup order tobring thept to [facility]. [facility]Pt states she can not confirm or deny [...] Pt states [facility] [place] [facility] and has herfirstintake appointment with them on Wednesday (05/09). Pt denies legal issues. Ptdeniesaccess to guns. Delusions are denied, Hallucinations are denied. Patient's moodisdepressed, Having thoughts of suicide. Denies suicidal plan.11:49 Patient reports history of anxiety, Bipolar Disorder, Depression, panicattacks, nhpost-traumatic stress disorder, self -mutilation, sleep disturbance, suicideattempt:Overdose in February 2020 Mental Health Admissions: multiple admissions, ephcCPVF00 Current Outpatient Mental Health Services: Therapist / Agency:[facility]. Living Environment: Family / Home [...] by screaming at them, andthreatening to elope md(which the pt did a few times prior). [...] off the bridge when I eloped from [facility]." Pt isstill inrestraints and calmed down at this time. Pt is being monitored by staff andvitals arebeing taken every 15 minutes.15:39 Notification to family of patient status is not currently needed orappropriate. nhConsultation: Psych MD informed of patient's status at 13:10, ED MD notified ofpatients status at 13:30, Mental Health SURGERY AIDE made aware of pt status at 13:15.Disposition: Medically cleared for disposition by Dr العلي. PsychiatricConsult isperformed by phone with Dr Oneill The patient is admitted to [facility].LegalStatus: Patient's legal status will be Emergency: 9.39. Commitment papers arecompleted. Pt has been provided with their legal status and rights. DSM-V DXAxis Idiagnosis: Major Depressive D/O [place] II diagnosis: Deferred [place] III diagnosis:None.[place] IV diagnosis: poor coping skills/poor impulse control. InsurancePre-Certification: Not Required. [facility] Admission Criteria: The patient has had [...] Transition of careto Ptwill be transported to [facility] with PSA and MHW.16:22 Elliott Suicide Severity Rating Scale: Suicidal Ideation Rating 5;Intensity of vh6Veuvxlgty Rating 25; Suicidal Behavior Rating 0.Psych:00:37 Subjective: Patient's mood is sad, Delusions are denied, Hallucinationsare denied ts2Pvrrgl thoughts of suicide. Denies suicidal plan. Objective: [...] 37.12 (104.33 kg, 167.64 cm)tp200:37 Pain Scale: Jgohypi4OM Course:00:33 Patient arrived in ED.tp200:34 Triage completed.tp200:42 Patient has correct armband on for positive identification. Placed ingown. Bed in low pp4huhwcvpq. Call light in reach. Sitter at bedside.00:42 No Physician assisted procedures completed.tp200:46 Zeeshan [facility] MD is Attending Physician.br00:47 Breonna Marie RN is Primary Nurse.tp210:32 Attending Physician role handed off by Zeeshan Grover MDse10:32 Kylie العلي MD is Attending Physician.se13:47 Appears to be sleeping.ef113:57 Brooklyn Oneill MD is Hospitalizing Provider.seAdministered Medications:09:23 Drug: Ondansetron 8 mg Route: PO;jl11:41 Follow up: Response: Nausea is taxgyhstdrn191:29 Drug: Geodon 20 mg Route: IM; Site: left deltoid;ef113:48 Follow up: Response: Anxiety jtftuyxfgue002:38 Drug: LORazepam 2 mg Route: IM; Site: right vastus lateralis;ef113:48 Follow up: Response: Anxiety rggfalpykhw4Zjtfweq:13:58 Decision to Hospitalize by Provider.se16:09 Disposition: Admitted to Yitnytt895:09 Condition: stable, Provider notified of abnormal vital signs.16:09 Discharge instructions given to patient, Instructed on need for admit,Demonstratedunderstanding of instructions.16:09 Discharge Assessment: Patient verbalized understanding of dispositioninstructions.Patient has no functional deficits.16:51 Patient left the ED.wk8Hjycdkelkf:Елена Hugo, Kylie Sands RN, MD MD seHilborne, Erica RN RN wh6XjOvbueBertha Collier RN RN jlPutney, Taylor, RN RN xu7SdxxyhkZeeshan browne MD MD brHolmes, Marianna Brown, Pearl op3Cvekareyaxt: (The following items were deleted from the chart)00:49 00:34 Presenting complaint: Patient states: discharged from [facility] tp21. Drank a bottle of shampoo. Went to [facility], [facility]. tp211:05 10:46 Referral Information: Evaluation referral is generated by a policeagency: [facility]. The patient was referred for evaluation because Pt states she drank abottle ofshampoo last night and that she was brought to [facility] where she elopedand wasbrought here on a pickup order nh11:48 11:02 Subjective: The patients chief complaint is Pt presents [facility] the [facility] a [facility] due to the pt drinking a [facility] During [facility], pt states she currently lives at [facility] in [place] and does not know if they will accept her back there. Ptstatesher "maybe" not being let back there is stressing her out. Pt admits at 1845 PMlastnight she drank a regular bottle of shampoo and conditioner. nh11:56 11:02 Subjective: The patients chief complaint is Pt [facility] due to the pt drinking a [facility] of [facility] During [facility], pt states [facility] [place] and does not know if they will [...] to kill herself. Pt [facility]. Pt states on the third time,sheeloped back to [facility] and made it to her apartment where the [facility] Police had apickuporder to bring the pt to [facility] for a psych evaluation. Pt states [...] rce(s) Supporting Document(s) ID Date Data Source [id number] 05/05/2021 10:14:00 PM EDT [facility] Name Value Range Interpretation Code Description Data Stephanie rce(s) Supporting Document(s) Ethanol Less than 10.0 Normal (applies to non-numeric r esults) [facility] ID Date Data Source [id number] 05/05/2021 09:47:00 PM EDT [facility] Name Value Range Interpretation Code Description Data Stephanie rce(s) Supporting Document(s) White Blood Count 3.5-10.5 Normal (applies to non-numeri c results) [facility] Red Blood Count 3.90-5.00 Normal (applies to non-numeric results) [facility] Hemoglobin 12.0-15.5 Normal (applies to non-numeric resul ts) [facility] Hematocrit 34.9-44.5 Normal (applies to non-numeric resul ts) [facility] Mean Corpuscular Volume 81.2-95.1 Normal (applies to non- numeric results) [facility] Mean Corpuscular Hgb 25.6-32.2 Normal (applies to non-num deena results) [facility] Mean Corpuscular Hgb Conc 32.0-36.0 Normal (applies to no n-numeric results) [facility] Red Cell Distribution Width 11.9-15.5 Normal (appli es to non-numeric results) [facility] Platelet Count 271 x10 3/uL 150-450 Normal (applies to non-numeric results) [facility] Mean Platelet Volume 9.4-12.4 Normal (applies to non-num deena results) [facility] Neutrophils% (Auto) 31.0-71.0 Normal (applies to non-nume frank results) [facility] Lymphocytes% (Auto) 20.0-55.0 Normal (applies to non-nume frank results) [facility] Monocytes% (Auto) 4.0-12.0 Normal (applies to non-numeri c results) [facility] Eosinophils% (Auto) 1.0-8.0 Below low normal [facility] Basophils% (Auto) 0.0-2.0 Normal (applies to non-numeri c results) [facility] Immature Granulocytes% (Auto) 0.0-2.0 Normal (alexander lies to non-numeric results) [facility] Neutrophils# (Auto) 1.50-6.20 Normal (applies to non-nume frank results) [facility] Lymphocytes# (Auto) 1.20-4.00 Normal (applies to non-nume frank results) [facility] Monocytes# (Auto) 0.00-0.90 Normal (applies to non-numeri c results) [facility] Eosinophils# (Auto) 0.00-0.50 Normal (applies to non-nume frank results) [facility] Basophils# (Auto) 0.00-0.20 Normal (applies to non-numeri c results) [facility] Immature Granulocytes# (Auto) 0.00-7.00 No rmal (applies to non-numeric results) [facility] ID Date Data Source [id number] 05/05/2021 10:17:00 PM EDT [facility] Name Value Range Interpretation Code Description Data Stephanie rce(s) Supporting Document(s) Sodium 138 mmol/L 136-145 Normal (applies to non-numeric resul ts) [facility] Potassium 3.5-5.1 Normal (applies to non-numeric resul ts) [facility] Chloride 102 mmol/L 98-107 Normal (applies to non-numeric resul ts) [facility] Carbon Dioxide CO2 21-32 Normal (applies to non-numer ic results) [facility] Anion Gap 5.0-16.0 Normal (applies to non-numeric resul ts) [facility] BUN 14 mg/dL 7-18 Normal (applies to non-numeric results) [facility] Creatinine,Serum 0.7-1.2 Normal (applies to non-numeric results) [facility] GFR >60 Normal (applies to non-numeric results) [facility] Glucose Level 97 mg/dL 60-99 Normal (applies to non-numeric re sults) [facility] Reference range is only applicable when patient is fasting Note the following drug interference: Sulfasalazine Sulfapyridine Can see falsely depressed Can see falsely elevated result with up to 17% results with up to 11% decrease in measurement increase in measurement Recommend patients be collected for this test prior to administration of either drug. Calcium 8.5-10.1 Normal (applies to non-numeric resul ts) [facility] Bilirubin,Total 0.1-1.9 Normal (applies to non-numeric results) [facility] SGOT(AST) 32 U/L 15-37 Normal (applies to non-numeric resul ts) [facility] Note the following drug interference: Sulfasalazine Sulfapyridine Can see falsely depressed Can see falsely elevated result with up to 10% results with up to 10% decrease in measurement increase in measurement Recommend patients be collected for this test prior to administration of either drug. SGPT(ALT) 62 U/L 12-78 Normal (applies to non-numeric resul ts) [facility] Note the following drug interference: Sulfasalazine Sulfapyridine Can see falsely depressed Can see falsely elevated result with up to 29% results with up to 10% decrease in measurement increase in measurement Recommend patients be collected for this test prior to administration of either drug. Alkaline Phosphatase 108 U/L 38-126 Normal (applies to non-num deena results) [facility] can increase Alkaline Phosp le vels up to 2 times the normal adult value. Normal values for children and adolescents are 2 to 3 times the normal adult value. Total Protein 6.0-8.2 Normal (applies to non-numeric re sults) [facility] Albumin Level 3.4-5.0 Normal (applies to non-numeric re sults) [facility] ID Date Data Source [id number] 05/05/2021 10:17:00 PM EDT [facility] Name Value Range Interpretation Code Description Data Stephanie rce(s) Supporting Document(s) Troponin I 0.000-0.056 Normal (applies to non-numeric resu lts) [facility] ID Date Data Source [id number] 05/05/2021 10:17:00 PM EDT [facility] Name Value Range Interpretation Code Description Data Stephanie rce(s) Supporting Document(s)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 to [facility] Patient report is given to Comfort AMAYA. LegalStatus:Patient's legal status will be Emergency: 9.39. Commitment papers arecompleted. pt hasbeen provided with the copy of her legal status and rights. DSM-V DX [place] Idiagnosis:Schizoaffective D/O. Insurance Pre-Certification: Not Required. [facility] AdmissionCriteria: The patient is experiencing suicidal ideation. The patient requirescontinuous observation and/or control to protect self, others or property. Thepatient's care requires a multi-modal treatment plan under close supervisionandcoordination due to the complexity and severity of the patient's symptoms. Thepatientrequires administration and monitoring of psychoactive medications by skilledmedicalproviders due to the side effects of the psychoactive medications orsignificant dosageadjustments. Awaiting transfer to [facility]. Transition of care to pt will beescorted byPSA and security. The patient is not a food service substitute or dependent.ColumbiaSuicide Severity Rating Scale: Suicidal Ideation Rating 5; Intensity ofIdeationsRating 25; Suicidal Behavior Rating 0.Psych:04/1523:32 Subjective: Patient's mood is sad, Delusions are denied, Hallucinationsare denied cl2Xmcvdi thoughts of suicide. Plan for suicide is hang self or OD. Objective:Patient iscooperative, Speech is normal, Affect is appropriate. Interventions: Removedpersonalitems and placed in bag. Patient placed in hospital gown. Searched person fordangerousitems. Observation Level Level 3 Sitter needed. Provider notified. [facility] nurse notified. Fortunato Mark RN Level 3 [...] for positive identification. Placed ingown. Sitter at vn5bhhlihh.01:00 No Physician assisted procedures completed.jw501:09 Ramón Levy MD is Attending Physician.na102:00 Sitter at bedside.jw503:20 Brooklyn Oneill MD is Hospitalizing Provider.na104:33 Sitter at bedside.vp3Xnuagbdmjnaj Medications:No medications were administeredOutcome:03:21 Decision to Hospitalize by Provider.na105:05 Disposition: Admitted to Psych with chart.jw505:05 Condition: tlrzupjbm48:05 Instructed on need for admit.05:05 Discharge Assessment: Patient verbalized understanding of dispositioninstructions.Patient has no functional deficits.05:06 Patient left the ED.yv2Hhzwrqmnad:Ramón Levy MD MD er8DkeuyFortunato humphrey RN RN zg4OcqttatpUsha Adams nf1Vlgejvxroow: (The following items were deleted from the chart)01:01 00:54 Subjective: The patients chief complaint is Pt presents to the EDas a walk in hs6pcgf [employer] for suicidal ideations. Pt had left ED and went on ramp. OPD wascalled tohelp talk to the pt. Pt did agree to come back inside. Pt took her sheet andwrapped itaround her neck. Sheet was removed. Pt reports that her aunt in [place] justpassedaway. She started crying saying that she is suicidal and wants help but feelsno onewill help her. Pt reports that she has the plans to either overdose or hangherself. Ptreports that she feels that she needs terminal operations manager treatment because she feelsnothingelse is wo rking. Pt has a long history of being inpatient for mental health atmultipledifferent facilities. Pt was last inpatient at [facility] . sm802:44 01:15 Narrative Pt walked to bathroom then left ED on ramp. [place] [address] Name Value Range Interpretation Code Description Data Stephanie rce(s) Supporting Document(s) ID Date Data Source [id number] 04/25/2021 11:05:00 PM EDT [facility] Name Value Range Interpretation Code Description [facility] Supporting Document(s) LCOVID-19, CORDELL NEGATIVE [facility] This lab was ordered by [facility] and reported by [facility]. ID Date Data Source [id number] 04/26/2021 12:17:00 AM EDT [facility] Name Value Range Interpretation Code Description Data [facility] Supporting Document(s) COVID-19, CORDELL NEGATIVE NEGATIVE N [facility] Methodology: Isothermal Nucleic Acid Amp lification [...] Emergency Use Authorization. ID Date Data Source [id number] 04/24/2021 03:18:[address] [facility] NT INFORMATIONPatient MRN Name Date of Age Gend*PT [id number] Yareli Hatch 00 20 years M CPEPPT Location Admission Date/Time Visit ID Attending ProviderNONE 04/24/21 1315 --- Laureen Luis MD([id number]) EPI ID CSN Admitting Provider [id number] Attestation signed by Laureen Luis MD at 04/24/2021 3:18 PMInitial time of commencing Psychiatrist [id number] encounter with patient:04/24/21 1440 : Laureen Luis MDI have examined the patient, [id number], and have personally participated inperforming a psychiatric [...] treatment plan with the patient and team [facility] PSYCHIATRIC ASSESSMENTPatient Name: Yareli Galindo at [facility]: 04/24/21 1305Psych SPRING FORMER First Contact: Yes (04/24/21 1331 : Aysha Valles NP)Chief ComplaintChief ComplaintPatient presents with Psychiatric Evaluation Pt's name is Daisy, he/him pronouns. Transferred via EMS from [facility] presenting for SI w/o plan. Lives in transitional living. Was [facility] ago. Presents often to [place] for SI per ED staff.Current StressorsCurrent Stressors: Pyschiatric SymptomsHistory of Present IllnessThe patient is a 20-year-old transgender individual (biological female,identifies as male gender, prefers he/him pronouns, preferred name "Daisy"). Thepatient was transferred to [facility] from [facility] to reports of vague suicidal ideation/passive wish [...] ER until they place margarette an new usp". Thus, these "suicidal statements" appear to be made huyen conditional basis if new housing is secured. Patient is fully connected withoutpatient mental health treatment providers, and an AOT order in [facility] (AOT coordinator is Laureen Alarcon ([phone]) and insurance case manager Taye ([phone]). Patient also has been [facility], Mr. Grayson Farley. Has a psychiatricprescriber but patient cannot recall the prescribers name, reports compliancewith medication. Patient resides in a supervised housing program, staffadministers medications at scheduled intervals. Patient denies use of illicitdrugs and does not drink alcohol (UDS obtained at [facility] EDn egative). Patient does add that there is another stressor of pending legalcharges from reportedly assaulting a nurse, resulting in harassment charge, [facility]occur[facility]. Patient has been calm and cooperative at [facility],exhibits strong features of personality disorder with [...] today, [facility] as he does not currently meet criteria forinpatient psychiatric hospitalization. Patient expressed understanding of thisough tells me that he will likely represent to another ED (not for any acuteproblem, cites housing as primary stressor). Social work consult has beenordered, case discussed with CPEP team including RN, social welfare administrator and .Treatment plan goals to be addressed and resolved with social welfare administrator, see notes.Addendum: I spoke with patient's AOT coordinator Ms. Lorraine Alarcon. Susanxplains that patient is a former [facility] resident, now she is a [facility] resident as she lives in this transitional living facilitywith / [facility]. [facility]. [facility] specifically [facility] ([place], [place]) [facility] ([place], [place]). Laureen is aware that [facility] is [facility], Lorraine states that this is fine if the respite facility is [facility], Medicaid transportation will bring her back to [facility]res[facility] when needed. Ms. Alarcon would like to beupdated when a final disposition is made, she can be reached at [phone].Patient InfoHistory provided by: patient, medical recordsLanguage cook helper used?: NoHPI: Mental Health ProblemPresenting Symptoms: anxiety (Made vague suicidal statements conditional on ifshe is discharged back to her community residence or not, states she would notbe suicidal if she stays in the hospital or goes to a respite facility, no planor intent to harm self or others, no psychosis)Patient accompanied by: (Sent from [facility] ED)Degree of incapacity (severity) : mildTiming: rareProgression: improvingChronicity: chronicContext : Current interpersonal stressorTreatment compliance: all of the timeRelieved by: antipsychotics, mood stabilizersIneffective Treatments: none triedAssociated symptoms: irritabilityRisk factors: (borderline personality disorder)Care Coordination/CollateralObtained, see above.HistoryPast Psychiatric HistoryOutside Treatment HistoryTreatment History Location Date of Last Tx Type of Tx Tx Reason/Dx Tx Length of Stay Tx helpful?Drug/Alcohol Rehab? [facility] Inpatient Suicidal thoughts 1 year [...] Memory: IntactInsight: GoodJudgment: Good (Adequate)Orientation: Appropriately Oriented d2Sgrwmodg Toward Examiner: CooperativeAssociations: No loosening evidentFund of [...] end yourlife)? 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 reported to building carpenter that she "drank some mouthwash" 3weeks ago [...] to the hospital because he dislikes his usp, wants usto get a new usp for him, future and goal oriented, no [...] goals to beaddressed and resolved with social welfare administrator, see notesPlan/Assessment #2: No medication changes, c ontinue home medication regimen asprescribedPlan/Assessment #3: Chart reviewed, outpatient treatment team to be contacted byEP social welfare administrator (social work consult ordered)General Treatment Plan - GOAL: The patient will have stabilization of presentingsymptoms in order to progress towards discharge from [facility] and have identifiedthe resources available until outpatient follow up.OBJECTIVE: The patient will be assisted with support resources post discharge:While at [facility], the RN or plastic worker will have a one on one conversation withthe patient to verbally identify their individual supports post discharge.,While at [facility], the RN or Electronics Research Engineer will have a one on one conversation withthe patient to verbally identify whom to contact for collateral information andobtain patient consent in writing., While at [facility], the RN or Electronics Research Engineer willhave a one on one conversation with the patient to verbally identify what followup resources will be most beneficial to the patient., While at [facility], the RN orSocial Worker will have a one on one conversation with the patient to verballyidentify any of their perceived and/or actual barriers to post discharge care.,While at [facility], the RN or Electronics Research Engineer will have a one on one conversation withthe patient to verbally explain the Mobile Crisis Outreach Team and encouragepatient to follow up with an appointment.Anxiety Treatment Plan - GOAL: The patient will have stabilization ofpresenting symptoms in order to progress towards discharge from [facility] and haveidentified the resources available until outpatient follow up.OBJECTIVE: The patient will have reduced overall frequency, intensity, andduration of anxiety so that activities of daily living are not impaired while atCPEP.: While at [facility], the RN or plastic worker will have a one on oneconversation with the patient to verbally identify their triggers for anxiety.,While at [facility], the RN or Electronics Research Engineer will have a one on one conversation [...] No changes [] No side effectsBilling Code: [id number] signed byLonnie Villegas Lvbjjoymifun23/14/21 1459Lonnie Villegas Ljgupqakbtlv51/14/21 1500 Name Value Range Interpretation Code Description Data Stephanie rce(s) Supporting Document(s) ID Date Data Source [id number] 04/23/2021 10:55:00 PM [facility]T [facility] Name Value Range Interpretation Code Description Data Stephanie rce(s) Supporting Document(s) Respiratory specimen severe acute respir atory syndrome coronavirus 2 (SARS-CoV-2) RNA Negative (qualifier value) [facility] This lab was ordered by [facility] and reported by . ID Date Data Source [id number] 04/23/2021 11:18:00 PM EDT [facility] Name Value Range Interpretation Code Description Data Stephanie rce(s) Supporting Document(s) SARS-CoV-2 RNA Negative Normal (applies to non-numeric r esults) [facility] Negative results should be treated as [...] Certificate of Accreditation. Factsheets for healthcare providers: https://www.fda.gov/media/569248/download Factsheets for patients: https://www.fda.gov/media/717844/download The ID NOW Instrument is a rapid molecular in vitro diagnostic test utilizing an isothermal nucleic acid amplification technology intended for the qualitative detection of nucleic acid from the SARS-CoV-2 viral RNA. THIS IS A STATE REPORTABLE COMMUNICABLE DISEASE. Manual entry verified by Megan Murphy 04/23/21 2317 ID Date Data Source [id number] 04/23/2021 10:16:00 PM EDT [facility] Name Value Range Interpretation Code Description Data Stephanie rce(s) Supporting Document(s) Troponin I 0.000-0.056 Normal (applies to non-numeric resu lts) [facility] ID Date Data Source [id number] 04/23/2021 10:16:00 PM EDT [facility] Name Value Range Interpretation Code Description Data Stephanie rce(s) Supporting Document(s) Sodium 141 mmol/L 136-145 Normal (applies to non-numeric resul ts) [facility] Potassium 3.5-5.1 Normal (applies to non-numeric resul ts) [facility] Chloride 106 mmol/L 98-107 Normal (applies to non-numeric resul ts) [facility] Carbon Dioxide CO2 21-32 Normal (applies to non-numer ic results) [facility] Anion Gap 5.0-16.0 Normal (applies to non-numeric resul ts) [facility] BUN 18 mg/dL 7-18 Normal (applies to non-numeric results) [facility] Creatinine,Serum 0.7-1.2 Normal (applies to non-numeric results) [facility] GFR >60 Normal (applies to non-numeric results) [facility] Glucose Level 108 mg/dL 60-99 Above high normal [facility] Reference range is only applicable when patient is fasting Note the following drug interference: Sulfasalazine Sulfapyridine Can see falsely depressed Can see falsely elevated result with up to 17% results with up to 11% decrease in measurement increase in measurement Recommend patients be collected for this test prior to administration of either drug. Calcium 8.5-10.1 Normal (applies to non-numeric resul ts) [facility] Bilirubin,Total 0.1-1.9 Normal (applies to non-numeric results) [facility] SGOT(AST) 34 U/L 15-37 Normal (applies to non-numeric resul ts) [facility] Note the following drug interference: Sulfasalazine Sulfapyridine Can see falsely depressed Can see falsely elevated result with up to 10% results with up to 10% decrease in measurement increase in measurement Recommend patients be collected for this test prior to administration of either drug. SGPT(ALT) 57 U/L 12-78 Normal (applies to non-numeric resul ts) [facility] Note the following drug interference: Sulfasalazine Sulfapyridine Can see falsely depressed Can see falsely elevated result with up to 29% results with up to 10% decrease in measurement increase in measurement Recommend patients be collected for this test prior to administration of either drug. Alkaline Phosphatase 125 U/L 38-126 Normal (applies to non-num deena results) [facility] can increase Alkaline Phosp le vels up to 2 times the normal adult value. Normal values for children and adolescents are 2 to 3 times the normal adult value. Total Protein 6.0-8.2 Normal (applies to non-numeric re sults) [facility] Albumin Level 3.4-5.0 Normal (applies to non-numeric re sults) [facility] ID Date Data Source [id number] 04/23/2021 10:16:00 PM EDT [facility] Name Value Range Interpretation Code Description Data Stephanie rce(s) Supporting Document(s) Magnesium 1.8-2.4 Normal (applies to non-numeric resul ts) [facility] ID Date Data Source [id number] 04/23/2021 10:16:00 PM EDT [facility] Name Value Range Interpretation Code Description Data Stephanie rce(s) Supporting Document(s) Salicylate 2.8-20.0 Below low normal [facility] ID Date Data Source [id number] 04/23/2021 10:16:00 PM EDT [facility] Name Value Range Interpretation Code Description Data Stephanie rce(s) Supporting Document(s) Acetaminophen 10.0-30.0 Below low normal [facility] ID Date Data Source [id number] 04/23/2021 10:13:00 PM EDT [facility] Name Value Range Interpretation Code Description Data Stephanie rce(s) Supporting Document(s) Ethanol Less than 10.0 Normal (applies to non-numeric r esults) [facility] ID Date Data Source [id number] 04/23/2021 09:42:00 PM EDT [facility] Name Value Range Interpretation Code Description Data Stephanie rce(s) Supporting Document(s) White Blood Count 3.5-10.5 Normal (applies to non-numeri c results) [facility] Red Blood Count 3.90-5.00 Normal (applies to non-numeric results) [facility] Hemoglobin 12.0-15.5 Normal (applies to non-numeric resul ts) [facility] Hematocrit 34.9-44.5 Normal (applies to non-numeric resul ts) [facility] Mean Corpuscular Volume 81.2-95.1 Normal (applies to non- numeric results) [facility] Mean Corpuscular Hgb 25.6-32.2 Normal (applies to non-num deena results) [facility] Mean Corpuscular Hgb Conc 32.0-36.0 Normal (applies to no n-numeric results) [facility] Red Cell Distribution Width 11.9-15.5 Normal (appli es to non-numeric results) [facility] Platelet Count 288 x10 3/uL 150-450 Normal (applies to non-numeric results) [facility] Mean Platelet Volume 9.4-12.4 Normal (applies to non-num deena results) [facility] Neutrophils% (Auto) 31.0-71.0 Normal (applies to non-nume frank results) [facility] Lymphocytes% (Auto) 20.0-55.0 Normal (applies to non-nume frank results) [facility] Monocytes% (Auto) 4.0-12.0 Normal (applies to non-numeri c results) [facility] Eosinophils% (Auto) 1.0-8.0 Normal (applies to non-nume frank results) [facility] Basophils% (Auto) 0.0-2.0 Normal (applies to non-numeri c results) [facility] Immature Granulocytes% (Auto) 0.0-2.0 Normal (alexander lies to non-numeric results) [facility] Neutrophils# (Auto) 1.50-6.20 Normal (applies to non-nume frank results) [facility] Lymphocytes# (Auto) 1.20-4.00 Normal (applies to non-nume frank results) [facility] Monocytes# (Auto) 0.00-0.90 Normal (applies to non-numeri c results) [facility] Eosinophils# (Auto) 0.00-0.50 Normal (applies to non-nume frank results) [facility] Basophils# (Auto) 0.00-0.20 Normal (applies to non-numeri c results) [facility] Immature Granulocytes# (Auto) 0.00-7.00 No rmal (applies to non-numeric results) [facility] ID Date Data Source [id number] 04/23/2021 09:58:00 PM EDT [facility] Name Value Range Interpretation Code Description Data Stephanie rce(s) Supporting Document(s) UDS Benzodiazepines Screen Negative Normal (applies to n on-numeric results) [facility] UDS Cocaine Screen Negative Normal (applies to non-numer ic results) [facility] UDS Ampetamine Screen Negative Normal (applies to non-nu meric results) [facility] UDS Cannabinoids Screen Negative Normal (applies to non- numeric results) [facility] UDS Opiates Screen Negative Normal (applies to non-numer ic results) [facility] UDS Barbiturates Screen Negative Normal (applies to non- numeric results) [facility] Threshold Levels Benzodiazepine 200 ng/mL Cocaine 300 ng/mL Amphetamines 1000 ng/mL Cannabinoids (THC) 50 ng/mL Opiates 300 ng/mL Barbiturates 200 ng/mL All positive findings are presumptive and unconfirmed. Confirmation of positive results are performed only at request of provider. Unconfirmed results must not be used for non-medical purposes (i.e. preemployment and legal purposes) ID Date Data Source [id number] 04/23/2021 09:52:00 PM [facility] Collected By: Nurse Initials: JT Time Collected: 2115 Collected By: Nurse Initials: JT Time Collected: 2115 Collected By: Nurse Initials: JT Time Collected: 2115 Name Value Range Interpretation Code Description Data Stephanie rce(s) Supporting Document(s) Color,Urine Colorl-Dk Y Normal (applies to non-numeric res ults) [facility] Clarity,Urine Clear Normal (applies to non-numeric re sults) [facility] Specific [place],Urine 1.005-1.030 Normal (applies to non- numeric results) [facility] pH,Urine 5.0-8.0 Normal (applies to non-numeric resul ts) [facility] Protein,Urine Negative [facility] [place] Glucose,Urine Negative Normal (applies to non-numeric re sults) [facility] Ketones,Urine Negative Normal (applies to non-numeric re sults) [facility] Blood,Urine Negative [facility] l Bilirubin,Urine Negative Normal (applies to non-numeric results) [facility] Urobilinogen,Urine 0.2-1.0 Normal (applies to non-numer ic results) [facility] Leukocyte Esterase,Urine Negative Normal (applies to non -numeric results) [facility] Nitrite,Urine Negative Normal (applies to non-numeric re sults) [facility] ID Date Data Source [id number] 04/23[facility]2021 09:52[facility]: Nurse Initials: JT Time Collected: 2115 Collected By: Nurse Initials: JT Time Collected: 2115 Collected By: Nurse Initials: JT Time Collected: 2115 Name Value Range Interpretation Code Description Data Stephanie rce(s) Supporting Document(s) RBC,Urine None Seen [facility] WBC,Urine None Seen [facility] Casts,Urine None Seen Normal (applies to non-numeric resu lts) [facility] Squamous Cells,Urine None Seen [facility] Amorphous Sediment,Urine None Seen [facility] Bacteria,Urine None Seen [facility] ital ID Date Data Source [id number] 04/23/2021 09:52:00 PM EDT [facility] Collected By: Nurse Initials: JT Time Collected: 2115 Collected By: Nurse Initials: JT Time Collected: 2115 Collected By: Nurse Initials: JT Time Collected: 2115 Name Value Range Interpretation Code Description Data Stephanie rce(s) Supporting Document(s) HCG,Ur Negative Normal (applies to non-numeric results) [facility] ID Date Data Source [id number] 04/21/2021 02:53:00 PM EDT [address] CONSULTPATIENT NAME: YARELI HATCH MR#: [id number] PHYSICIAN:AUTHOR: Colleen SMITH,Bogdan DATE: #: ERPATIENT : 00See AddendumHistoryHistory of Presenting IllnessPatient is 20-year-old female, currently lives in [facility], single, pastpsych history of borderline personality disorder, bipolar disorderChief complaint: Suicidal ideationHistory of present illness: Patient was seen along with PA students. Accordingto information from PSA patient was presented last night. She was banging herhead and expressing suicidal ideation while she was at [facility] and that is when shewas [...] as reaching out to staff member at [facility] if she does not feel safe.ER physician seems to be frustrated with patient recurrent emergency room visitbut upon discussion with the patient patient denied having any such behaviorpertaining to her safety prior to coming to the hospital or any intent to harmherself prior to the hospital. She was also requesting to have her clotheschanged and going back to [facility] as she was under order of [...] this point.Past Psych/Medical HistoryAllergiesCoded Allergies:risperidone (08/04/19)ADDENDUM: Colleen SMITH,[facility] on 04/21/21 at 1504Patient was also offered a voluntary admission to inpatient mental health unitfor further treatment or if she does not feel safe to return back to [facility].However patient declined and also recommended case management services toprovide her help to find a suitable place that patient likes.DATE SIGNED: 04/21/21 Electronically SignedTIME SIGNED: [id number] BOGDAN MACIAS MD Name Value Range Interpretation Code Description Data Stephanie rce(s) Supporting Document(s) ID Date Data Source [id number] 04/20/2021 11:19:00 PM [facility] Name Value Range Interpretation Code Description Data Stephanie rce(s) Supporting Document(s) SALICYLATE < 1.7 mg/dL 0.0-20.0 [facility] ID Date Data Source [id number] 04/20/2021 11:19:00 PM EDT [facility] [place] Name Value Range Interpretation Code Description Data Stephanie rce(s) Supporting Document(s) ACETAMINOPHEN < 2.0 ug/mL 0-30 [facility] Data Source [id number] 04/20/2021 11:19:00 PM EDT [facility] [place] Name Value Range Interpretation Code Description Data Stephanie rce(s) Supporting Document(s) ETOH NONE DETECTED N [facility] NONE DETECTED ID Date Data Source [id number] 04/20/2021 11:19:00 PM EDT [facility] [place] Name Value Range Interpretation Code Description Data Stephanie rce(s) Supporting Document(s) GLU 100 mg/dL 70-110 [facility] Patients taking Sulfasalazine may have f alsely depressedGlucose levels. Patients taking Sulfapyridine may havefalsely elevated Glucose levels. Patients should be drawnfor Glucose before the initial administration of eitherdrug. BUN 16 mg/dL 7-23 [facility] CRE 0.657 mg/dL 0.500-1.300 [facility] GFR > 60 mL/min [facility] CHLORIDE 111 mmol/L 99-110 [facility] NA 142 mmol/L 136-147 [facility] POTASSIUM 3.9 mmol/L 3.5-5.1 [facility] TCO2 24 mmol/L 20-33 [facility] ANION GAP 10.9 10.0-20.0 [facility] CA 8.6 mg/dL 8.3-10.7 [facility] ALKALINE PHOS 118 U/L 45-117 [facility] TP 7.4 g/dL 6.0-7.8 [facility] ALB 3.4 g/dL 3.5-5.0 [facility] ESRD Dialysis patient Albumin reference range: 2.9-4.4 g/dL GL 4.0 g/dL 2.3-3.5 [facility] A/G 0.9 1.0-2.5 [facility] T. BILIRUBIN 0.3 mg/dL 0.1-1.1 [facility] [place] Total Bilirubin is n ot recommended forpatients undergoing treatment with eltrombopag (Promacta)due to the potential for falsely elevated results. ALTI 46 U/L 6-54 [facility] Patients taking Sulfasalazine and/or Sul fapyridine may havefalsely depressed ALT levels. Patients should be drawn forALT before the initial administration of either drug. AST 33 U/L 6-38 [facility] Patients taking Sulfasalazine and/or Sul fapyridine may havefalsely depressed AST levels. Patients should be drawn forAST before the initial administration of either drug. ID Date Data Source [id number] 04/20/2021 11:01:00 PM EDT [facility] [place] Name Value Range Interpretation Code Description Data Stephanie rce(s) Supporting Document(s) WBC 7.79 x10E3/uL 4.0-10.5 [facility] RBC 3.99 x10E6/uL 4.20-5.40 [facility] Hemoglobin 11.7 g/dL 12.0-16.0 [facility] Hematocrit 35.3 % 37.0-47.0 [facility] MCV 88.5 fL 81.0-99.0 [facility] MCH 29.3 pg 27.0-31.0 [facility] MCHC 33.1 g/dL 32.7-35.6 [facility] RDW 12.2 % 11.5-14.0 [facility] Platelet count 264 x10E3/uL 150-450 [facility] ital MPV 9.5 fl 6.9-9.5 [facility] Neutrophils 65.2 % 34-64 [facility] Lymphocytes 27.2 % 25-45 [facility] Monocytes 6.0 % 1.7-10.6 [facility] Eosinophils 1.0 % 0.4-7.0 [facility] Basophils 0.3 % 0.1-2.0 [facility] Imm. Gran. 0.3 % 0.1-2.0 [facility] Abs. Neutro. 5.08 x10E3/uL 1.2-7.6 [facility] [place] Abs. Lymph. 2.12 x10E3/uL 1.0-3.5 [facility] Abs. Stone. 0.47 x10E3/uL 0.1-1.0 N [facility] l Abs. Eosin. 0.08 x10E3/uL 0.1-0.7 [facility] Abs. Baso. 0.02 x10E3/uL 0.0-0.1 [facility] Abs. Imm. Gran. 0.02 x10E3/uL 0.0-0.1 [facility] spital ANRBC% 0 % 0 [facility] ID Date Data Source [id number] 04/20/2021 10:40:00 PM EDT [facility] Name Value Range Interpretation Code Description Data Stephanie rce(s) Supporting Document(s) LCOVID-19, CORDELL NEGATIVE [facility] This lab was ordered by [facility] and reported by [facility]. ID Date Data Source [id number] 04/20/2021 11:16:00 PM EDT [facility] [place] Name Value Range Interpretation Code Description Data Stephanie rce(s) Supporting Document(s) COVID-19, CORDELL NEGATIVE NEGATIVE [facility] Methodology: Isothermal Nucleic Acid Amp lification [...] Emergency Use Authorization. ID Date Data Source [id number] 04/21/2021 03:43:00 PM EDT Joenicole heaton Physician DocumentationClaxton-Naveen Hinkle edical CenterName: Yareli AdamelAge: 20 yrsSex: FemaleDOB: 2000MRN: [id number] Date: 04/20/2021Time: 22:29Account#: [id number] MD: NONE, - Per PatientED Physician Ab Pires Summary:04/21/21 15:00Discharge OrderedLocation: Home Self CareafProblem: an ongoing problemafSymptoms: are unchangedafCondition: StableafDiagnosis- Adjustment disorder, unspecifiedafFollowup:af- With: Private Physician- When: 1 week- Reason: Recheck today's complaintsDischarge Instructions:- ADJUSTMENT DISORDERaf- Discharge Summary Xzyjpty5Eaopa:- Medication Reconciliationaf- Medication Reconciliation Form - 2nd CopyafHPI:04/1104:45 This 20 yrs old White Female presents to ER via Police with complaints ofPsych Problem.na104:45 The patient presents to the emergency department with depression, PT.BROUGHT TO ED BY lu5KIDH FOR MHE. APPARENTLY SHE WAS HITTING HER [...] 400 mg intramuscular suspension,extended release syringe 400 xpkrjsy82 days3. ibuprofen 400 mg Oral tablet 1 [...] Negative for drug dependence, alcohol dependence, auditoryhallucinations, cb4blgkxc hallucinations, homicidal ideation. All other systems are negative.Exam:04:49 Head/Face: Normocephalic, atraumatic. Eyes: Pupils equal round andreactive to light, pt5yridh-gzvixn motions intact. Lids and lashes normal. Conjunctiva [...] 97.7(T); Pulse Ox 95% on R/A; Pain0/10; jl15:85bm942/2:32 Body Mass Index 37.12 (104.33 kg, 167.64 cm)ef110/1115:40 Pain Scale: Lurgiuj87:43 llbnrnplpj5FPO:03:21 Patient medically screened.na104:50 Data reviewed: vital signs, nurses notes, lab test result(s).na110/1022:31 Order name: Acetaminophen Level; Complete Time: 03:2:31 Order name: CBC with diff; Complete Time: 03::32 Order name: CMP; Complete Time: 03:2:32 Order name: COVID-19 PROFILE+LAB; Complete Time: 03:2:32 Order name: ETOH; Complete Time: 03:2:32 Order name: Omaqumdug2412:32 Order name: Salicylate Level; Complete Time: 03:2:32 Order name: Triage - Drug Dzutduqo9572:32 Order name: WTpd4062:32 Order name: Urine HCG Qualitat ptful408/1022:32 Order name: Diet - Mental Health Tray (call dietary); Complete Time:22:43 :32 Order name: Belongings List; Complete Time: 15::32 Order name: Document Weight and Height for BMI; Complete Time: 15::32 Order name: Mental Health Evaluation; Complete Time: 15:3:24 Order name: Medically Cleared for Eval by- Psychosocial, Bottom Sander (YE)uw3Tstqdtvvm Medications:15:42 Not Given (Patient Refused): ARIPiprazole 10 mg PO sfrutw858:42 Not Given (Patient Refused): Loratadine 10 mg PO :42 Not Given (Patient Refused): Singulair Chewable Tablet 10 mg PO :42 Not Given (Patient Refused): Propranolol 10 mg PO ckphto468:42 Not Given (Patient Refused): sertraline 50 mg PO tyltcc671:42 Not Given (Physician Discretion): Topiramate 75 mg PO fvucwu1Irbjjeifno:Dispatcher [employer] Anshul Loving MD MD afAl-Hussein, Nabeel, MD MD na1Hilborne, Erica, RN RN ef1 Name Value Range Interpretation Code Description Data Stephanie rce(s) Supporting Document(s) ID Date Data Source [id number] 04/21/2021 03:43:00 PM EDT [facility] [place] Nurse's NotesClaxton-Montgomery City Medical [facility] terName: Yareli DuvallAge: 20 yrsSex: FemaleDOB: 2000MRN: [id number] Date: 04/20/2021Time: 22:29Account#: [id number] MD: NONE, - Per PatientDiagnosis: Adjustment disorder, unspecifiedPresentation:04/1022:30 Presenting complaint: Patient states: the sdet got me because i wasbanging my head and fu3jjfsypxpzh to tie something around my neck. International Travel Fever No.CoronavirusScreening: Have you received the COVID vaccine? Yes. Communicable DiseaseScreen:Negative for fever>/= 100 degrees Fahrenheit. Communicable disease screen isnegative.(-) rash or unusual skin lesion (-) travel/contact with traveler (-)respiratorysymptoms. Communication Speaks [place]? Yes, is preferred language.22:30 Acuity: Triage 0vt797:30 Acuity Assignment: Triage 7fr475:30 Method Of Arrival: Hounkzea3Babsou Assessment:22:31 General: Appears in no apparent distress, [...] 400 mg intramuscular suspension,extended release syringe 400 lmfovtf36 days3. ibuprofen 400 mg Oral tablet 1 [...] threats or abuse. Denies injuries from another.Nutritional kx0epjydxxsh: No deficits noted. Offer of HIV testing: patient was previouslyofferedscreening. Fall Risk None identified.Assessment:22:35 General: Appears in no apparent distress, obese, unkempt, Behavior isagitated. Neuro: hc5Rvlhd of Consciousness is awake, alert, obeys commands. [...] is generated by a policeagency: Police. The kr9zwkkecj was referred for evaluation because Pt states "the sdet got me becauseI wasbanging my head and threatened to tie something around my neck.".14:14 Subjective: The patients chief complaint is Pt presents to the ED withPolice due to em2the pt banging her head against the wall and threatening to tie somethingaround herneck at the [facility] facility. During MHE, pt denies SI/HI/ Pt denieshallucinations. Ptdenies self harm. Pt states she was just mad at [facility] facility due to being"pissed off"because she hates her current [facility] housing. Pt denies being verbally abusivetowardsstaff at [facility]. Pt denies threatening to tie something around her neck at [facility]. Pt states she would like to be discharged home as she is not suicidalandhomicidal. Pt has outpatient services at [facility] counselor [place]. Pt denies legal issues. Pt denies access toguns. PSAspoke with Nikky at [facility]. Nikky states the pt was banging her head in her roomand inthe hallway there at her residence. Nikky states the pt was verbally abusivetowardsstaff. Nikky states there needs to be a better plan for the pt as there seemsto be apattern of her going to the ED since she has been at [facility] since February 13 2021.Delusions are denied, Hallucinations are denied. Patient's mood is euthymic.14:22 Patient reports history of anxiety, Bipolar Disorder, Depression, Other:Borderline ot8Nvbmlomufij Disorder. Mental Health Ad[facility] / Agency: [facility]. Living Environment: Family / Home Support: Fair The patient currentlylives kaley [facility] residence. The patient is single. Detox / Rehab Admissions: None. CurrentOutptAlcohol or Substance Abuse Services: None.14:24 Patient presents to Emergency Department with the following symptomswithin the past 2 cx6krbhs: self-mutilation, suicidal statements/threats. Objective: Patient iscooperative,Speech is normal. Affect is appropriate. Patient has mutilated themselves bycuttingright arm and left arm Cuts on arms from wire in face mask at [facility] facility twodaysago. Mental status exam: [...] by phone with Dr Macias. DSM-V DX [place] I diagnosis:Adjustment D/OUnspecified [place] II diagnosis: Deferred [place] III diagnosis: None. [place] IVdiagnosis:poor coping skills. Elliott Suicide Severity Rating Scale: Suicidal IdeationRating 0;Intensity of Ideations Rating 0; Suicidal Behavior Rating 0.14:35 Narrative Pt will be discharged back to [facility] per Dr. Macias with a diagnosisof Adjustment rv3Bagagjbi. Pt can contract for safety. Pt denies SI/HI. Pt will follow up withtheiroutpatient provider, the [facility] and upcomingappointmentswill be verified and expedited. Pt has been provided with the PSA and Reachoutphonenumbers. Pt has been instructed to take medications as prescribed and return [facility] ED should problems continue or worsen. Per Dr. Macias, pt will complete 5copingskills/5 goals[address]15:[address] Macias spoke with ED Dr. Strauss. Dr. Macias states the ptcapable of za2huoifa to the ED whenever she feels suicidal and that she needs to. Dr. Alvarezuggestsinvolving Case Management and having [facility] make requests for other housingservices ifthe pt wishes not to live at [facility]. Dr. Macias states if the pt [...] 97.7(T); Pulse Ox 95% on R/A; Pain0/10; jl15:67gf652/2:32 Body Mass Index 37.12 (104.33 kg, 167.64 cm)ef110/1115:40 Pain Scale: Sxahbep27:43 urstiqferk5SZ Course:04/1022:29 Patient arrived in ED.ef122:29 NONE, - Per Patient is Private Physician.ef122:30 Triage completed.ef122:35 Patient has correct armband on for positive identification. Bed in lowposition. Sitter ef1at bedside. Verbal reassurance given. Pillow given.22:35 Labs drawn. Collected by lab. Nasal Swab.ef110/1103:21 Ramón Levy MD is Attending Physician.na106:52 Resting quietly.fw10:17 Appears to be sleeping.ef115:43 No Physician assisted procedures completed.gg8Zqxjhtozbwlf Medications:15:42 Not Given (Patient Refused): ARIPiprazole 10 mg PO zaweqm952:42 Not Given (Patient Refused): Loratadine 10 mg PO yooxsp747:42 Not Given (Patient Refused): Singulair Chewable Tablet 10 mg PO :42 Not Given (Patient Refused): Propranolol 10 mg PO rytehi453:42 Not Given (Patient Refused): sertraline 50 mg PO hcelsi111:42 Not Given (Physician Discretion): Topiramate 75 mg PO mpjzos6Rirqkjt:15:00 Discharge ordered by .af15:43 Disposition: Discharged to home ambulatory.ef115:43 Condition: stable, Provider notified of abnormal vital signs.15:43 Discharge instructions given to patient, Instructed on dischargeinstructions, followup and referral plans. Demonstrated understanding of instructions.15:43 Discharge Assessment: Patient verbalized understanding of dispositioninstructions.Patient able15:43 Patient left the ED.e c7Mcynqchfry:Anshul Strauss MD MD afAl-Hussein, Nabeel, MD MD na1Ami Medrano RN RN Bertha Ascencio RN RN jlWest, Fayeanne, RN RN fwMoyer Pearl lx7Kprjkgpypdd: (The following items were deleted from the chart)00:50 00:40 [facility] 13[facility]54 Referral Information: Evaluation referral is generated by yd6kh201:41 14:35 Narrative Pt will be discharged back to [facility] per Dr. Macias. Pt cancontract for lq5kwcwul. Pt denies SI/HI. [facility] and upcoming appointments will be verifiedandexpedited. Pt [...] threatening to tie somethingaround herneck at the [facility] facility. During MHE, pt denies SI/HI/ Pt denieshallucinations. Ptdenies self harm. Pt states she was just mad at [facility] facility due to being"pissed off"because she hates her current [facility] housing. Pt denies being verbally abusivetowardsstaff at [facility]. Pt denies threatening to tie something around her neck at [facility]. Pt states she would like to be discharged home as she is not suicidalandhomicidal. Pt has [facility] counselor [place]. Pt denies legal issues. Pt denies access toguns..Delusions are denied, Hallucinations are denied. Patient's mood is euthymic.em2 Name Value Range Interpretation Code Description Data Stephanie e(s) Supporting Document(s) ID Date Data Source [id number] 04/19/2021 03:01:00 AM EDT [facility] [place] Name Value Range Interpretation Code Description Data Stephanie rce(s) Supporting Document(s) SALICYLATE < 1.7 mg/dL 0.0-20.0 [facility] ID Date Data Source [id number] 04/19/2021 03:01:00 AM EDT [facility] [place] Name Value Range Interpretation Code Description Data Stephanie rce(s) Supporting Document(s) ACETAMINOPHEN < 2.0 ug/mL 0-30 [facility] ID Date Data Source [id number] 04/19/2021 03:01:00 AM EDT [facility] [place] Name Value Range Interpretation Code Description Data Stephanie rce(s) Supporting Document(s) ETOH NONE DETECTED [facility] NONE DETECTED ID Date Data Source [id number] 04/19/2021 03:01:00 AM EDT [facility] [place] Name Value Range Interpretation Code Description Data Stephanie rce(s) Supporting Document(s) GLU 86 mg/dL 70-110 [facility] Patients taking Sulfasalazine may have f alsely depressedGlucose levels. Patients taking Sulfapyridine may havefalsely elevated Glucose levels. Patients should be drawnfor Glucose before the initial administration of eitherdrug. BUN 13 mg/dL 7-23 [facility] CRE 0.615 mg/dL 0.500-1.300 [facility] GFR > 60 mL/min [facility] CHLORIDE 113 mmol/L 99-110 [facility] NA 142 mmol/L 136-147 [facility] POTASSIUM 3.9 mmol/L 3.5-5.1 [facility] TCO2 24 mmol/L 20-33 [facility] ANION GAP 8.9 10.0-20.0 [facility] CA 8.6 mg/dL 8.3-10.7 [facility] ALKALINE PHOS 112 U/L 45-117 [facility] TP 7.3 g/dL 6.0-7.8 [facility] ALB 3.3 g/dL 3.5-5.0 [facility] ESRD Dialysis patient Albumin reference range: 2.9-4.4 g/dL GL 4.0 g/dL 2.3-3.5 [facility] A/G 0.8 1.0-2.5 [facility] T. BILIRUBIN 0.2 mg/dL 0.1-1.1 [facility] [place] Total Bilirubin is n ot recommended forpatients undergoing treatment with eltrombopag (Promacta)due to the potential for falsely elevated results. ALTI 41 U/L 6-54 [facility] Patients taking Sulfasalazine and/or Sul fapyridine may havefalsely depressed ALT levels. Patients should be drawn forALT before the initial administration of either drug. AST 26 U/L 6-38 [facility] Patients taking Sulfasalazine and/or Sul fapyridine may havefalsely depressed AST levels. Patients should be drawn forAST before the initial administration of either drug. ID Date Data Source [id number] 04/19/2021 02:32:00 AM EDT [facility] [place] Name Value Range Interpretation Code Description Data Stephanie rce(s) Supporting Document(s) WBC 7.86 x10E3/uL 4.0-10.5 [facility] RBC 3.92 x10E6/uL 4.20-5.40 [facility] Hemoglobin 11.6 g/dL 12.0-16.0 [facility] Hematocrit 35.0 % 37.0-47.0 [facility] MCV 89.3 fL 81.0-99.0 [facility] MCH 29.6 pg 27.0-31.0 [facility] MCHC 33.1 g/dL 32.7-35.6 [facility] RDW 12.1 % 11.5-14.0 [facility] Platelet count 276 x10E3/uL 150-450 [facility] ital MPV 9.4 fl 6.9-9.5 [facility] Neutrophils 60.4 % 34-64 [facility] Lymphocytes 30.8 % 25-45 [facility] Monocytes 6.9 % 1.7-10.6 [facility] Eosinophils 1.1 % 0.4-7.0 [facility] Basophils 0.3 % 0.1-2.0 [facility] Imm. Gran. 0.5 % 0.1-2.0 [facility] Abs. Neutro. 4.75 x10E3/uL 1.2-7.6 [facility] [place] Abs. Lymph. 2.42 x10E3/uL 1.0-3.5 [facility] Abs. Stone. 0.54 x10E3/uL 0.1-1.0 [facility] Abs. Eosin. 0.09 x10E3/uL 0.1-0.7 [facility] Abs. Baso. 0.02 x10E3/uL 0.0-0.1 [facility] Abs. Imm. Gran. 0.04 x10E3/uL 0.0-0.1 N [facility] spital ANRBC% 0 % 0 [facility] ID Date Data Source [id number] 04/19/2021 02:36:00 AM EDT [facility] [place] Name Value Range Interpretation Code Description Data Stephanie rce(s) Supporting Document(s) PCP VISTA NEG NEGATIVE [facility] MINIMUM LEVEL OF DETECTION IS 25 ng/ml BENZODIAZEPINES NEG NEGATIVE [facility] al MINIMUM LEVEL OF DETECTION IS 200 ng/ml COCAINE VISTA NEG NEGATIVE [facility] MINIMUM LEVEL OF DETECTION IS 300 ng/ml AMPHETAMINES NEG NEGATIVE [facility] MINIMUM LEVEL OF DETECTION IS 1000 ng/ml BARBITURATES NEG NEGATIVE [facility] CUTOFF CONCENTRATION IS 200 ng/ml CANNABINOIDS NEG NEGATIVE [facility] CUTOFF CONCENTRATION IS 50 ng/ml METHADONE VISTA NEG NEGATIVE [facility] MINIMUM LEVEL OF DETECTION IS 300 ng/ml OPIATE VISTA NEG NEGATIVE [facility] MINIMUM DETECTION LEVEL IS 300 ng/ml ID Date Data Source [id number] 04/19/2021 02:16:00 AM EDT [facility] [place] Name Value Range Interpretation Code Description Data Stephanie rce(s) Supporting Document(s) HCG QUAL URINE Negative Negative [facility] ID Date Data Source [id number] 04/19/2021 02:16:00 AM EDT [facility] [place] Name Value Range Interpretation Code Description Data Stephanie rce(s) Supporting Document(s) URINE COLOR Yellow [facility] UAPR Cloudy [facility] UGLU Negative NEGATIVE [facility] URINE BILIRUBIN Negative NEGATIVE [facility] UKET Negative NEGATIVE [facility] USG 1.029 1.010-1.025 [facility] UBLO Negative NEGATIVE [facility] UpH 5.5 5.0-8.0 [facility] UPRO Negative Negative [facility] UUB 1.0 mg/dL 0.2-1.0 [facility] UNIT Negative Negative [facility] ULEU Negative Negative [facility] ID Date Data Source [id number] 04/19/2021 01:30:00 AM EDT [facility] Name Value Range Interpretation Code Description Data Stephanie rce(s) Supporting Document(s) LCOVID-19, CORDELL NEGATIVE [facility] This lab was ordered by [facility] and reported by [facility]. ID Date Data Source [id number] 04/19/2021 02:30:00 AM EDT [facility] Name Value Range Interpretation Code Description Data Stephanie rce(s) Supporting Document(s) COVID-19, CORDELL NEGATIVE NEGATIVE [facility] Methodology: Isothermal Nucleic Acid Amp lification [...] Emergency Use Authorization. ID Date Data Source [id number] 04/19/2021 02:55:00 PM EDT [facility] Physician DocumentationClLeticia Hinkle edical CenterName: Yareli DuvallAge: 20 yrsSex: FemaleDOB: 2000MRN: [id number] Date: 04/19/2021Time: 01:17Account#: [id number] 1Private MD: NONE, - Per PatientED Physician Chetan Grover Summary:04/19/21 14:31Discharge OrderedLocation: Home Self CareafProblem: an ongoing problemafSymptoms: are unchangedafCondition: StableafDiagnosis- Bipolar disorder, unspecifiedafFollowup:af- With: Private Physician- When: 1 week- Reason: Recheck today's complaintsDischarge Instructions:- BIPOLAR DISORDERaf- Discharge Summary Rloflpg40Fpdpr:- Medication Reconciliationaf- Medication Reconciliation Form - 2nd CopyafHPI:04/907:14 This 20 yrs old White Female presents to ER via Police with complaints ofPsych Problem.br07:14 Obese 20-year-old female brought by PD for evaluation of self- harm.Please call to seen brpatient where she was seen slamming her head against the wall after attemptingto cutwrists w wire from covid mask. self end[facility]Historical:- Allergies: Haldol; Risperdal;- Home Meds:1. aripiprazole [...] Temp 98.3; Pulse Ox 98% on R/A; Jnaeyp875.33 kg; nv2Mxnkha 5 ft. 6 in. ; Pain 0/10;14:44 BP 119 / 88; Pulse 88; Resp 16; Temp 98; Pulse Ox 98% ;kk201:24 Body Mass Index 37.12 (104.33 kg, 167.64 cm)kk301:24 Pain Scale: Ytxlzih4JGR:01:33 Patient medically screened.br07:17 Data reviewed: vital signs, [...] name: ETOH; Complete Time: 03::37 Order name: Qsnnmvcpi369/0901:37 Order name: Salicylate Level; Complete Time: 03::37 Order name: Triage - Drug Screen; Complete Time: 03::37 Order name: UA; Complete Time: 03::37 Order name: Urine HCG Qualitative; Complete Time: 03::37 Order name: Diet - Mental Health Tray (call dietary):37 Order name: Belongings Blvuyz468/0901:37 Order name: Document Weight and Height for PNLmt651:37 Order name: Mental Health Foufzymscswe618/0901:37 Order name: Mental Health Level 5bq51604/901:37 Order name: VS q /0903:17 Order name: Consult Orders-Psychosocial, Bottom Sander (.PSA)brDispensed Medications:03:37 Drug: B52 IM - (LORazepam 2 mg, diphenhydrAMINE 50 mg, HaloperidolLactate 5 mg) Route: cm4IM; Site: left vastus lateralis;Signatures:Dispatcher [employer] Anshul Loving MD MD afRoberts, Brandon, MD MD brKelly, Krista, RN RN ec7EpoenarvjWendy quintana RN RN cm4 Name Value Range Interpretation Code Description Data Stephanie rce(s) Supporting Document(s) ID Date Data Source [id number] 04/19/2021 02:55:00 PM EDT [facility] [place] Nurse's NotesCl[facility] terName: Yareli PatelvallAge: 20 yrsSex: FemaleDOB: 2000MRN: [id number] Date: 04/19/2021Time: 01:17Account#: [id number] MD: NONE, - Per PatientDiagnosis: Bipolar disorder, unspecifiedPresentation:04/901:18 Presenting complaint: Patient states: "Well, the sdet came because I wasbanging my cl2pxmi on the wall and I wasn't being suicidal.". Coronavirus Screening: Have youbeendiagnosed with COVID-19 in the past 30 days? no Are you currently on quarantinebyPublic Health? no Flu-like symptoms reported in the last 14 days: no. Have youhadclose contact with confirmed or suspected COVID-19 case? no Do you live in asettingwhere a large of amount of people live, such as fpc, family care,fpc, etc?yes. Have you traveled to a location with widespread or ongoing COVID-19communityspread or outside of [facility]? no Have you traveled internationally or hadcontact withsomeone that has traveled and has been ill in the past 3 weeks? no Have youreceivedthe COVID vaccine? Yes Sophia unknown. Communication Speaks [place]? Yes, ispreferredlanguage. Language Line Services needed? No Are TDD needed? No. Best learningmethod:discussion. Learning barriers: none identified.01:18 Acuity: Triage [id number] Method Of Arrival: [id number]:19 Acuity Assignment: Triage [id number]:21 International Travel Fever No. Communicable Disease Screen: Negative forfever>/= 100 vn6zqngzir Fahrenheit. Communicable disease screen is negative. (-) rash orunusual skinlesion (-) travel/contact with traveler (-) respiratory symptoms.Triage Assessment:01:24 General: Appears unkempt, well nourished, Behavior is appropriate forage, cooperative, ql0Qfswap fever, chills. Sepsis Screening: (1)Signs/symptoms infection Sepsis isnotsuspected. Pain: Denies pain. PSS-3 Now I'm going to ask you some questionsthat we askeveryone treated here, no matter what problem they are here for. [facility] and it helps us to [...] 400 mg intramuscular suspension,extended release syringe 400 nqghzup01 days3. ibuprofen 400 mg Oral tablet 1 [...] threats or abuse. Denies injuries from another.Nutritional ri2zihxqfmer: No deficits noted. Offer of HIV testing: patient was previouslyofferedscreening. Fall Risk None identified.Assessment:01:35 Reassessment: No changes from previously documented assessment.kk301:54 Reassessment: Patient refused to have labs drawn, explained mental healthprocess and kk3the steps necessary to be medically cleared, patient still refused, PSA and EDprovidermade aware.02:22 Reassessment: patient starts refusing blood work and screaming at staff.OPD called to kk1zfitrlg, patient is known to be aggressive. Patient gets aggitated when thepolice gethere and continues to scream at staff, code carmen called. Patient agrees toget bloodwork done. .03:38 Reassessment: patient tries to elope twice, walking out to the ramp.Patient was lw9byacpxqwhr and followed out to the ramp, patient did come back inside bothtimes.Patient begins hitting her head off the wall and not cooperating with staff andyelling/ calling staff vulgar names. Patient has no self control at this timescreamingin the ER. Vanesa ramos called..03:52 Reassessment: Patient placed in 4 point restraints at 0342 due tocontinued lack of ry4aucm control.04:33 Reassessment: patient released from restraints at 0433.cm404:46 Reassessment: Patient appears in no apparent distress at this time.cm407:30 Reassessment: Patient appears in no apparent distress at this time. Nochanges from op8eulstbmbym documented assessment. Patient sleeping.09:57 Reassessment: Patient appears in no apparent distress at this time. Nochanges from fj7fzolzbkywb documented assessment. Patient sleeping. .Psychosocial:07:26 SAFE Act [...] facilities last being three days ago at [facility]. Ptreportsthat she has been and eating and sleeping well. Pt [facility] Pt states that she does not feelshe needsinpatient services at this time. Pt reports she feels she would be safe to bedischarged home at this time back to [facility]. Delusions are denied, Hallucinationsaredenied. Patient's mood is depressed.12:00 Patient reports history of anxiety, Bipolar Disorder, Depression, self-mutilation, hk66Ymcaok Health Admissions: multiple last yash ng at [facility] two days ago CurrentOutpatient Mental Health Services: Psychiatrist / Agency: [facility].LivingEnvironment: Family / Home Support: good The patient currently lives in a TLSapartment.12:04 Patient presents to Emergency Department with the following symptomswithin the past 2 hm48sdsrq: Anger, anxiety, depressed mood, poor concentration, poor impulsecontrol,suicidal ideation with no plan.12:06 Objective: Patient is cooperative, Speech is normal. Affect isappropriate. Mental vg97jttfsv exam: Patients appearance is appropriate, Patient's behavior [...] patient's status at 13:33, ED MDnotified of iq76qermejck status at 13:33. Disposition: Medically cleared for disposition by [facility].Psychiatric Consult is performed by phone with Dr Strauss The patient has asafedestination which is Pt will be discharged to [facility] per Dr. Canela. Pt cancontract forsafety and denies SI/HI. Pt will follow up with outpatient next week. Pt willtakemedications as prescribed. Pt provided contact information for JAN Mazariegos. Ptwill come to the ED if problems continue or worsen. DSM-V DX [place] I diagnosis:BipolarD/O, Unspecified [place] II diagnosis: Deferred [place] III diagnosis: None. [place] IVdiagnosis: poor impulse control. The patient is not a food service substitute ormilitarydependent. Elliott Suicide Severity Rating Scale: Suicidal Ideation Rating 0;Intensity of Ideations Rating 0; Suici reji Behavior Rating 0.Psych:01:28 Subjective: Patient's mood is euphoric, Delusions are denied,Hallucinations are denied vn4Hxvwvq thoughts of suicide. Denies suicidal plan. Objective: [...] Temp 98.3; Pulse Ox 98% on R/A; Ofaxvr024.33 kg; rx7Hxuzai 5 ft. 6 in. ; Pain 0/10;14:44 BP 119 / 88; Pulse 88; Resp 16; Temp 98; Pulse Ox 98% ;kk201:24 Body Mass Index 37.12 (104.33 kg, 167.64 cm)kk301:24 Pain Scale: Sjdgisd8CB Course:01:17 Patient arrived in ED.kk301:18 NONE, - Per Patient is Private Physician.kk301:19 Triage completed.kk301:30 Ratna Barbosa RN is Primary Nurse.kk301:33 Zeeshan Grover MD is Attending Physician.br01:35 Urine collected. Clean catch specimen. Nasal Swab Collected by Nurse.kk301:40 Patient has correct armband on for positive identification. Placed ingown. Bed in low tb0tdjnrcle. Call light in reach. Side rails up [...] has no functional deficits.14:55 Patient left the ED.gh1Juamggshmw:Anshul Strauss MD MD afKnight, Zakia, RN RN fq7Zade, Ina [id number] Grover MD MD brKelly, Krista, RN RN av1Gphooyef, Usha carrollfp5YwufdfppcWendy Severino, RN RN ah6Qzjg, Olivia, RN RN sw2 Name Value Range Interpretation Code Description Data Stephanie rce(s) Supporting Document(s) ID Date Data Source [id number] 04/17/2021 10:05:00 AM EDT [facility] Name Value Range Interpretation Code Description Data Stephanie rce(s) Supporting Document(s) Respiratory specimen severe acute respir atory syndrome coronavirus 2 (SARS-CoV-2) RNA Negative (qualifier value) [facility] This lab was ordered by [facility] and reported by . ID Date Data Source [id number] 04/17/2021 10:35:00 AM EDT [facility] Name Value Range Interpretation Code Description Data Stephanie rce(s) Supporting Document(s) SARS-CoV-2 RNA Negative Normal (applies to non-numeric r esults) [facility] Negative results should be treated as [...] Certificate of Accreditation. Factsheets for healthcare providers: https://www.fda.gov/media/334788/download Factsheets for patients: https://www.fda.gov/media/889020/download The ID NOW Instrument is a rapid molecular in vitro diagnostic test utilizing an isothermal nucleic acid amplification technology intended for the qualitative detection of nucleic acid from the SARS-CoV-2 viral RNA. THIS IS A STATE REPORTABLE COMMUNICABLE DISEASE. Manual entry verified by Megan Murphy 04/17/21 1034 ID Date Data Source [id number] 04/17/2021 10:56:00 AM T [facility] Name Value Range Interpretation Code Description Data Stephanie rce(s) Supporting Document(s) HCG,Ur Negative Normal (applies to non-numeric results) [facility] ID Date Data Source [id number] 04/17/2021 02:47:00 AM [facility] Name Value Range Interpretation Code Description Data Stephanie rce(s) Supporting Document(s) UDS Benzodiazepines Screen Negative Normal (applies to n on-numeric results) [facility] UDS Cocaine Screen Negative Normal (applies to non-numer ic results) [facility] UDS Ampetamine Screen Negative Normal (applies to non-nu meric results) [facility] UDS Cannabinoids Screen Negative Normal (applies to non- numeric results) [facility] UDS Opiates Screen Negative Normal (applies to non-numer ic results) [facility] UDS Barbiturates Screen Negative Normal (applies to non- numeric results) [facility] Threshold Levels Benzodiazepine 200 ng/mL Cocaine 300 ng/mL Amphetamines 1000 ng/mL Cannabinoids (THC) 50 ng/mL Opiates 300 ng/mL Barbiturates 200 ng/mL All positive findings are presumptive and unconfirmed. Confirmation of positive results are performed only at request of provider. Unconfirmed results must not be used for non-medical purposes (i.e. preemployment and legal purposes) ID Date Data Source [id number] 04/17/2021 02:46:00 AM EDT [facility] Collected By: Nurse Ronits: JOANA Time Collected: 214 Collected By: Nurse Ronits: JOANA Time Collected: 214 Name Value Range Interpretation Code Description Data Stephanie rce(s) Supporting Document(s) Color,Urine Colorl-Dk Y Normal (applies to non-numeric res ults) [facility] Clarity,Urine Clear Normal (applies to non-numeric re sults) [facility] Specific [place],Urine 1.005-1.030 [facility] pH,Urine 5.0-8.0 Normal (applies to non-numeric resul ts) [facility] Protein,Urine Negative Normal (applies to non-numeric re sults) [facility] Glucose,Urine Negative Normal (applies to non-numeric re sults) [facility] Ketones,Urine Negative Normal (applies to non-numeric re sults) [facility] Blood,Urine Negative [facility] Negative [facility] pital Urobilinogen,Urine 0.2-1.0 Normal (applies to non-numer ic results) [facility] Leukocyte Esterase,Urine Negative [facility] Nitrite,Urine Negative Normal (applies to non-numeric re sults) [facility] ID Date Data Source [id number] 04/17/2021 02:46:00 AM EDT [facility] Collected By: Nurse Initials: JOANA Time Collected: 214 Collected By: Nurse Initials: JOANA Time Collected: 214 Name Value Range Interpretation Code Description Data [facility] rce(s) Supporting Document(s) RBC,Urine None Seen [facility] WBC,Urine None Seen [facility] Casts,Urine None Seen Normal (applies to non-numeric resu lts) [facility] Squamous Cells,Urine None Seen [facility] Amorphous Sediment,Urine None Seen [facility] Bacteria,Urine None Seen [facility] ital ID Date Data Source [id number] 04/17/2021 02:29:00 AM EDT [facility] Name Value Range Interpretation Code Description Data Stephanie rce(s) Supporting Document(s) Sodium 139 mmol/L 136-145 Normal (applies to non-numeric resul ts) [facility] Potassium 3.5-5.1 Below low normal [facility] spital Chloride 102 mmol/L 98-107 Normal (applies to non-numeric resul ts) [facility] Carbon Dioxide CO2 21-32 Normal (applies to non-numer ic results) [facility] Anion Gap 5.0-16.0 Normal (applies to non-numeric resul ts) [facility] BUN 12 mg/dL 7-18 Normal (applies to non-numeric results) [facility] Creatinine,Serum 0.7-1.2 Normal (applies to non-numeric results) [facility] GFR >60 Normal (applies to non-numeric results) [facility] Glucose Level 99 mg/dL 60-99 Normal (applies to non-numeric re sults) [facility] Reference range is only applicable when patient is fasting Note the following drug interference: Sulfasalazine Sulfapyridine Can see falsely depressed Can see falsely elevated result with up to 17% results with up to 11% decrease in measurement increase in measurement Recommend patients be collected for this test prior to administration of either drug. Calcium 8.5-10.1 Normal (applies to non-numeric resul ts) [facility] Bilirubin,Total 0.1-1.9 Normal (applies to non-numeric results) [facility] SGOT(AST) 26 U/L 15-37 Normal (applies to non-numeric resul ts) [facility] Note the following drug interference: Sulfasalazine Sulfapyridine Can see falsely depressed Can see falsely elevated result with up to 10% results with up to 10% decrease in measurement increase in measurement Recommend patients be collected for this test prior to administration of either drug. SGPT(ALT) 45 U/L 12-78 Normal (applies to non-numeric resul ts) [facility] Note the following drug interference: Sulfasalazine Sulfapyridine Can see falsely depressed Can see falsely elevated result with up to 29% results with up to 10% decrease in measurement increase in measurement Recommend patients be collected for this test prior to administration of either drug. Alkaline Phosphatase 133 U/L 38-126 Above high normal [facility] can increase Alkaline Phosp le vels up to 2 times the normal adult value. Normal values for children and adolescents are 2 to 3 times the normal adult value. Total Protein 6.0-8.2 Normal (applies to non-numeric re sults) [facility] Albumin Level 3.4-5.0 Normal (applies to non-numeric re sults) [facility] ID Date Data Source [id number] 04/17/2021 02:29:00 AM [facility] Name Value Range Interpretation Code Description Data Stephanie rce(s) Supporting Document(s) Salicylate 2.8-20.0 Below low normal [facility] ID Date Data Source [id number] [facility] Value Range Interpretation Code Description Data Stephanie rce(s) Supporting Document(s) Troponin I 0.000-0.056 Normal (applies to non-numeric resu lts) [facility] ID Date Data Source [id number] 04/17/2021 02:29:00 AM [facility] Name Value Range Interpretation Code Description Data Stephanie rce(s) Supporting Document(s) Acetaminophen 10.0-30.0 Below low normal [facility] ID Date Data Source [id number] 04/17/2021 02:29:00 AM EDT [facility] Name Value Range Interpretation Code Description Data Stephanie rce(s) Supporting Document(s) Magnesium 1.8-2.4 Normal (applies to non-numeric resul ts) [facility] ID Date Data Source [id number] 04/17/2021 02:28:00 AM EDT [facility] Name Value Range Interpretation Code Description Data Stephanie rce(s) Supporting Document(s) Ethanol Less than 10.0 Normal (applies to non-numeric r esults) [facility] ID Date Data Source [id number] 04/17/2021 02:07:00 AM EDT [facility] Name Value Range Interpretation Code Description Data Stephanie rce(s) Supporting Document(s) White Blood Count 3.5-10.5 Normal (applies to non-numeri c results) [facility] Red Blood Count 3.90-5.00 Normal (applies to non-numeric results) [facility] Hemoglobin 12.0-15.5 Normal (applies to non-numeric resul ts) [facility] Hematocrit 34.9-44.5 Normal (applies to non-numeric resul ts) [facility] Mean Corpuscular Volume 81.2-95.1 Normal (applies to non- numeric results) [facility] Mean Corpuscular Hgb 25.6-32.2 Normal (applies to non-num deena results) [facility] Mean Corpuscular Hgb Conc 32.0-36.0 Normal (applies to no n-numeric results) [facility] Red Cell Distribution Width 11.9-15.5 Normal (appli es to non-numeric results) [facility] Platelet Count 285 x10 3/uL 150-450 Normal (applies to non-numeric results) [facility] Mean Platelet Volume 9.4-12.4 Normal (applies to non-num deena results) [facility] Neutrophils% (Auto) 31.0-71.0 Normal (applies to non-nume frank results) [facility] Lymphocytes% (Auto) 20.0-55.0 Normal (applies to non-nume frank results) [facility] Monocytes% (Auto) 4.0-12.0 Normal (applies to non-numeri c results) [facility] Eosinophils% (Auto) 1.0-8.0 Normal (applies to non-nume frank results) [facility] Basophils% (Auto) 0.0-2.0 Normal (applies to non-numeri c results) [facility] Immature Granulocytes% (Auto) 0.0-2.0 Normal (alexander lies to non-numeric results) [facility] Neutrophils# (Auto) 1.50-6.20 Above high normal [facility] Lymphocytes# (Auto) 1.20-4.00 Normal (applies to non-nume frank results) [facility] Monocytes# (Auto) 0.00-0.90 Normal (applies to non-numeri c results) [facility] Eosinophils# (Auto) 0.00-0.50 Normal (applies to non-nume frank results) [facility] Basophils# (Auto) 0.00-0.20 Normal (applies to non-numeri c results) [facility] Immature Granulocytes# (Auto) 0.00-7.00 No rmal (applies to non-numeric results) [facility] ID Date Data Source [id number] 04/14/2021 03:02:00 PM EDT [address] CONSULTPATIENT NAME: YARELI HATCH MR#: [id number] PHYSICIAN:AUTHOR: Surendra SMITH,P. DATE: RM#: ERPATIENT : [...] her suicidal.So, then she was taken to [facility] in [facility]. While she was in the [facility],she claims she escaped from the hospital at which point a pickup order wasissued then she was [facility]. [facility] my evaluation today which I conducted with Gloria, flight operation coordinator and2 students from [employer] I found her to be not hostile, [...] rce(s) Supporting Document(s) ID Date Data Source [id number] 04/13/2021 10:06:00 PM EDT [facility] Name Value Range Interpretation Code Description Data [facility] rce(s) Supporting Document(s) WBC 11.79 x10E3/uL 4.0-10.5 [facility] RBC 4.27 x10E6/uL 4.20-5.40 [facility] Hemoglobin 12.5 g/dL 12.0-16.0 [facility] Hematocrit 37.7 % 37.0-47.0 [facility] MCV 88.3 fL 81.0-99.0 [facility] MCH 29.3 pg 27.0-31.0 [facility] MCHC 33.2 g/dL 32.7-35.6 [facility] RDW 12.4 % 11.5-14.0 [facility] Platelet count 262 x10E3/uL 150-450 [facility] ital MPV 10.3 fl 6.9-9.5 [facility] Neutrophils 75.6 % 34-64 [facility] Lymphocytes 17.2 % 25-45 [facility] Monocytes 5.9 % 1.7-10.6 [facility] Eosinophils 0.6 % 0.4-7.0 [facility] Basophils 0.3 % 0.1-2.0 [facility] Imm. Gran. 0.4 % 0.1-2.0 [facility] Abs. Neutro. 8.92 x10E3/uL 1.2-7.6 [facility] Abs. Lymph. 2.03 x10E3/uL 1.0-3.5 [facility] Abs. Stone. 0.69 x10E3/uL 0.1-1.0 [facility] Abs. Eosin. 0.07 x10E3/uL 0.1-0.7 [facility] Abs. Baso. 0.03 x10E3/uL 0.0-0.1 [facility] Abs. Imm. Gran. 0.05 x10E3/uL 0.0-0.1 [facility] spital ANRBC% 0 % 0 [facility] ID Date Data Source [id number] 04/13/2021 09:38:00 PM EDT [facility] Name Value Range Interpretation Code Description Data Stephanie rce(s) Supporting Document(s) GLU 95 mg/dL 70-110 [facility] Patients taking Sulfasalazine may have f alsely depressedGlucose levels. Patients taking Sulfapyridine may havefalsely elevated Glucose levels. Patients should be drawnfor Glucose before the initial administration of eitherdrug. BUN 14 mg/dL 7-23 [facility] CRE 0.672 mg/dL 0.500-1.300 [facility] GFR > 60 mL/min [facility] CHLORIDE 110 mmol/L 99-110 [facility] NA 141 mmol/L 136-147 [facility] POTASSIUM 4.5 mmol/L 3.5-5.1 [facility] TCO2 23 mmol/L 20-33 [facility] ANION GAP 12.5 10.0-20.0 [facility] CA 8.6 mg/dL 8.3-10.7 [facility] ALKALINE PHOS 125 U/L 45-117 [facility] TP 8.0 g/dL 6.0-7.8 [facility] ALB 3.6 g/dL 3.5-5.0 [facility] ESRD Dialysis patient Albumin reference range: 2.9-4.4 g/dL GL 4.4 g/dL 2.3-3.5 [facility] A/G 0.8 1.0-2.5 [facility] T. BILIRUBIN 0.3 mg/dL 0.1-1.1 [facility] [place] Total Bilirubin is n ot recommended forpatients undergoing treatment with eltrombopag (Promacta)due to the potential for falsely elevated results. ALTI 51 U/L 6-54 [facility] Patients taking Sulfasalazine and/or Sul fapyridine may havefalsely depressed ALT levels. Patients should be drawn forALT before the initial administration of either drug. AST 32 U/L 6-38 [facility] Patients taking Sulfasalazine and/or Sul fapyridine may havefalsely depressed AST levels. Patients should be drawn forAST before the initial administration of either drug. ID Date Data Source [id number] 04/13/2021 09:38:00 PM EDT [facility] Name Value Range Interpretation Code Description Data Stephanie rce(s) Supporting Document(s) SALICYLATE < 1.7 mg/dL 0.0-20.0 [facility] ID Date Data Source [id number] 04/13/2021 09:38:00 PM EDT [facility] Name Value Range Interpretation Code Description Data Stephanie rce(s) Supporting Document(s) ACETAMINOPHEN < 2.0 ug/mL 0-30 [facility] Date Data Source [id number] 04/13/2021 09:38:00 PM EDT [facility] Name Value Range Interpretation Code Description Data Stephanie rce(s) Supporting Document(s) ETOH 0.007 g/dL NONE DETECTED [facility] ID Date Data Source [id number] 04/13/2021 08:47:00 PM EDT [facility] Name Value Range Interpretation Code Description Data Stephanie rce(s) Supporting Document(s) LCOVID-19, CORDELL NEGATIVE [facility] This lab was ordered by [facility] and [facility] by [facility]. ID Date Data Source [id number] 04/13/2021 09:21:00 PM EDT [facility] Name Value Range Interpretation Code Description Data Stephanie rce(s) Supporting Document(s) COVID-19, CORDELL NEGATIVE NEGATIVE [facility] Methodology: Isothermal Nucleic Acid Amp lification [...] Emergency Use Authorization. ID Date Data Source [id number] 04/13/2021 09:48:00 PM EDT [facility] Name Value Range Interpretation Code Description Data Stephanie rce(s) Supporting Document(s) PCP VISTA NEG NEGATIVE [facility] MINIMUM LEVEL OF DETECTION IS 25 ng/ml BENZODIAZEPINES NEG NEGATIVE [facility] al MINIMUM LEVEL OF DETECTION IS 200 ng/ml COCAINE VISTA NEG NEGATIVE [facility] MINIMUM LEVEL OF DETECTION IS 300 ng/ml AMPHETAMINES NEG NEGATIVE [facility] al MINIMUM LEVEL OF DETECTION IS 1000 ng/ml BARBITURATES NEG NEGATIVE [facility] al CUTOFF CONCENTRATION IS 200 ng/ml CANNABINOIDS NEG NEGATIVE [facility] al CUTOFF CONCENTRATION IS 50 ng/ml METHADONE VISTA NEG NEGATIVE [facility] al MINIMUM LEVEL OF DETECTION IS 300 ng/ml OPIATE VISTA NEG NEGATIVE [facility] MINIMUM DETECTION LEVEL IS 300 ng/ml ID Date Data Source [id number] 04/13/2021 09:38:00 PM EDT [facility] Name Value Range Interpretation Code Description Data Stephanie rce(s) Supporting Document(s) URINE COLOR Yellow [facility] UAPR Turbid [facility] UGLU Negative NEGATIVE [facility] URINE BILIRUBIN Negative NEGATIVE [facility] al UKET Negative NEGATIVE [facility] USG 1.017 1.010-1.025 [facility] UBLO Negative NEGATIVE [facility] UpH 7.5 5.0-8.0 [facility] UPRO Negative Negative [facility] UUB 1.0 mg/dL 0.2-1.0 [facility] UNIT Negative Negative [facility] ULEU Trace Negative [facility] ID Date Data Source [id number] 04/13/2021 09:38:00 PM EDT [facility] Name Value Range Interpretation Code Description Data Stephanie rce(s) Supporting Document(s) URINE RBC 0-2 RBCs/HPF NONE SEEN [facility] URINE WBC 0-2 WBCs/HPF NONE SEEN [facility] URINE BACTERIA Few NONE [facility]EN [facility] URINE EPI. Many NONE SEEN [facility] URINE CRYSTAL MANY AMORPHOUS NONE SEEN [facility] pital ID Date Data Source [id number] 04/13/2021 09:38:00 PM EDT [facility] Name Value Range Interpretation Code Description Data Stephanie rce(s) Supporting Document(s) HCG QUAL URINE Negative Negative [facility] l ID Date Data Source [id number] 04/14/2021 04:43:00 PM EDT Joe heaton Physician DocumentationClaxlexy-Naveen chopra CenterName: Yareli Mejiage: 20 yrsSex: FemaleDOB: 2000MRN: [id number] Date: 04/13/2021Time: 20:28Account#: [id number] 1Private MD: NONE, - Per PatientED Physician Santiago RajanDiszach Summary:04/14/21 16:06Discharge OrderedLocation: Home Self Sqfllw3Rqjjute: nhsgesojn8Nqpniclu: are xbeanepcqkr9Yblgrdzkz: Qamdgnua2Xnsoghdvc- Major depressive disorder, recurrent, jqdtzvcotasrq9Lhbpecdk:rf2- With: Private Physician- When: 2 - 3 days- Reason: Recheck today's complaints, Continuance of careDischarge Instructions:- Discharge Summary Eibhrna14- YZMQDDZQWEzl0Xpjci:- Medication Reconciliationrf2- Medication Reconciliation Form - [address] [place], [place] [address]Xinsvu2CUV:04/320:42 This 20 yrs old White Female presents to ER via Police with complaints ofPsych Problem.th420:42 Associated signs and symptoms: Pertinent negatives: abdominal pain, chestpain, fever, lp5ekfxkvlx, nausea, shortness of breath, vomiting. Patient is [facility] evaluation. Patient is well-known to the ER. She has been seenmany timesin the past for the same. She was last here on April 09 and was admitted atthattime. Patient reports that she [facility] the lastcouple dayswith suicidal [...] 400 mg intramuscular suspension,extended release syringe 400 rrxyfqg10 days3. ibuprofen 400 mg Oral tablet 1 [...] Eyes: Negative for acute changes.ENT: Negative for ni4oyifw discharge, rhinorrhea, sinus congestion. Neck: Negative for [...] 53.26 (149.69 kg, 167.64 cm)jw523:48 Pain Scale: Ccaumrf005/0411:45 Pain Scale: Mqnpzbu842:43 Pain Scale: AdulttlmMDM:04/320:34 Patient medically screened.th410/0406:41 Data reviewed: vital signs, nurses notes, lab test result(s). ED course:Patient dh7jocajmyw stable in the ER. Patient here for mental health evaluation as above.Case isendorsed to Dr. Rajan at change of shift pending PSA evaluation disposition.Patient ismedically clear and has been cooperative..07:32 Data reviewed: lab test result(s), CBC, drug level(s), acetaminophen,alcohol, xw5xezwfexyya, electrolytes, hepatic panel, urinalysis, urine drug screen,COVID-19.Transition of care: Care assumed from Nils Argueta MD.16:06 ED course: Patient being recommended for discharge home by Dr. Patten with adiagnosis of vm8biwtvbhjdl.04/320:39 Order name: Acetaminophen Level; Complete Time: 21:83sb3680:39 Order name: CBC with diff; Complete Time: 07:05jp070/0407:33 Interpretation: Abnormal: WBC 11.79; Mild leukocytosis.rf0:39 Order name: CMP; Complete Time: 21:21sr9350:39 Order name: COVID-19 PROFILE+LAB; Complete Time: ::39 Order name: ETOH; Complete Time: ::39 Order name: Glucose; Complete Time: 07:08oi855/0407:32 Interpretation: Within normal limits.rf:39 Order name: Salicylate Level; Complete Time: ::39 Order name: Triage - Drug Screen; Complete Time: ::39 Order name: UA; Complete Time: :31ol846:39 Order name: Urine HCG Qualitative; Complete Time: ::39 Order name: Diet - Mental Health Tray (call dietary); Complete Time:23:49 :39 Order name: Belongings List; Complete Time: 05::39 Order name: Document Weight and Height for BMI; Complete Time: 23:18no0480:39 Order name: Mental Health Evaluation; Complete Time: 23::39 Order name: Mental Health Level 3; Complete Time: 23::39 Order name: VS q shift; Complete Time: 23::49 Order name: Medically Cleared for Eval by-Psychosocial, [place] (.PSA)fe5Ueljmwzyr Medications:04/322:16 Drug: Ibuprofen 600 mg [ibuprofen 600 mg tablet (1 tabs)] Route: PO;kk223:48 Follow up: Pain 09/18 Poybdcr412/0410:16 Drug: Propranolol 10 mg Route: PO;ef110:46 Follow up: Response: No adverse kivhveoyve079:16 Drug: sertraline 50 mg Route: PO;ef110:46 Follow up: Response: No adverse atebpjigma790:16 Drug: Topiramate 75 mg Route: PO;ef110:45 Follow up: Response: No adverse aazghvrdrf129:16 Drug: Loratadine 10 mg Route: PO;ef110:45 Follow up: Response: No adverse cgrbvebxqm391:17 Drug: ARIPiprazole 10 mg Route: PO;ef110:46 Follow up: Response: No adverse ohvgpaahkd106:45 Drug: Acetaminophen Tablet 650 mg Route: PO;ef111:45 Follow up: Pain 0/10 Ixloplk7Khbfaunalh:Disp atcZakia Cormier RN RN ml3NwrymsdNils bansal MD MD zc2Eguha, JOSE LUIS Bucio RN so9OdjjswqsAmi dang RN RN ly7Qbpjj, MD SARAH Henderson rf2 Name Value Range Interpretation Code Description Data Stephanie rce(s) Supporting Document(s) ID Date Data Source [id number] 04/14/2021 04:43:00 PM EDT [facility] [place] [facility] terName: Yareli DuvallAge: 20 yrsSex: FemaleDOB: 2000MRN: [id number] Date: 04/13/2021Time: 20:28Account#: [id number] 1Private MD: NONE, - Per PatientDiagnosis: Major depressive disorder, recurrent, unspecifiedPresentation:04/320:29 Presenting complaint: Patient states: Was at [facility] ideation. xl6Dmzhaoz to this ED by [facility]. Patient reports that she escaped from the [facility]. International Travel Fever No. Coronavirus Screening: Have you beendiagnosed with COVID-19 in the past 30 days? no Are you currently on quarantinebyPlic Health? no Flu-like symptoms reported in the last 14 days: no. Have youhadclose contact with confirmed or suspected COVID-19 case? no Do you live in asettingwhere a large of amount of people live, such as fpc, family care,fpc, etc?yes. Have you traveled to a location with widespread or ongoing COVID-19communityspread or outside of [facility]? no Have you traveled internationally or hadcontact withsomeone that has traveled and has been ill in the past 3 weeks? no Have youreceivedthe COVID vaccine? Yes Sophia x 1 dose. Communicable Disease Screen: Negativeforfever>/= 100 degrees Fahrenheit. Communicable disease screen is negative. (-)rash orunusual skin lesion (-) travel/contact with traveler (-) respiratory symptoms.Communication Speaks [place]? Yes, is preferred language.20:29 Acuity: Triage 4ds714:29 Method Of Arrival: Omgbrrjf799:30 Acuity Assignment: Triage 1eg3[place]ir Assessment:20:31 General: Appears in no apparent distress, [...] 400 mg intramuscular suspension,extended release syringe 400 pgicxrs95 days3. ibuprofen 400 mg Oral tablet 1 [...] threats or abuse. Denies injuries from another.Nutritional jx5poaoretxr: No deficits noted. Offer of HIV testing: [...] appears in no apparent distress at this time.cj4Mzalinxphois:04/322:01 Mental health consult is initiated at 22:01.sm822:12 SAFE Act Report Not Completed. Intervention: Observation Level 3.Referral Information: lc8Leivsdotcw referral is generated by a police agency: [employer]. The patient wasreferred forevaluation because suicidal ideations.22:23 Subjective: The patients chief complaint is Pt presents to the ED by [place] hp5ozvjnyvat. As PSA was going into her room pt was tapping her head off the wall.Pt wasdischarged from our unit on Wednesday (04/11), she then went to [facility] late Wednesday night. Pt had [facility] out [facility]. Patient remainssuicidalideations with no plan. Pt reports that she is also homicidal towards hermother. Shestates that she has no direct plan but states that if she could get her handson hershe would kill her anyway. Pt reports that she was going by the name Hanvincentbutchanged it to Daisy Sanches. She states that she changed it on her facebook andher mothergot mad at her. She states that her mother got mad because two of her familymembersnames are Myron and the mother had told her that she is too immature whichcaused thept to feel homicidal towards her. Pt has a [facility] She has a history of Anxiety, Bipolar, Depression, andBPD. Pt hasa history of reported suicide attempts by overdosing. Pt denies hallucinations.Pt doesnot present with any delusional thoughts. Delusions are denied, Hallucinationsaredenied. Patient's mood is depressed, Having thoughts of suicide. Deniessuicidal plan.homicide: denies plan. Homicidal thoughts directed towards mother.22:30 Narrative PSA spoke to Dulce at [facility] ([phone]). She states that itis "the same sm8old thing" as to why the pt is in the ED. She states that the pt was dischargedfromour unit then went to [facility] for suicidal ideations. She states that thept madeit back to them in scrubs and stated that she asked Cholo what wouldhappen if shewalked out which they told her that they would have to call the police. Policethenshowed up at [facility] and brought her to us.22:33 Patient reports history of anxiety, Bipolar Disorder, Depression, self-mutilation, vp2ilghrvp attempt: pt reports multiple by overdosing Mental Health Admissions:multipletimes at multiple facilities Current Outpatient Mental Health Services:[facility]iatrist [facility] [place]. Living Environment: Family / HomeSupport: [facility] in a [facility]. The patient is single. Detox /RehabAdmissions: None. Current Outpt Alcohol or Substance Abuse Services: None.22:34 Patient presents to Emergency Department with the following symptomswithin the past 2 bd2dioqh: suicidal ideation with no plan. Patient presents [...] patient status is not currently needed orappropriate. pu5Lcftbibkpolz: Psych MD informed of patient's status at 22:30, ED MD notified ofpatients status at 22:46. Disposition: Medically cleared for disposition by Meet.Psychiatric Consult is performed by phone with Dr David Gray-HILDA [facility]. Legal Status: Patient's legal statuswill beDirectory of Community Services: 37. Commitment papers are completed. DSM-VDX [place] Idiagnosis: Depression, Unspecified. Insurance Pre-Certification: Not Required.IMHUAdmission [...] Awaiting referral hospitalacceptance.The patient is not a food service substitute or dependent. Elliott SuicideSeverityRating Scale: Suicidal Ideation Rating 2; Intensity of Ideations Rating 23;SuicidalBehavior Rating 0.04/416:02 Narrative Pt will be discharged home per Dr. Patten. Pt can contract [facility] and denies am11SI/HI. Pt will follow up with outpatient services. Pt provided contactinformation forPSA and [employer]. Pt will come to the ED if problems continue or worsen.Psych:04/320:50 Subjective: Delusions are denied, Hallucinations are denied Havingthoughts of suicide. uk9Mohncr suicidal plan. Objective: Patient is cooperative, Speech [...] 53.26 (149.69 kg, 167.64 cm)jw523:48 Pain Scale: Ceuxpwa674/0411:45 Pain Scale: Honubln465:43 Pain Scale: AdulttlmED Course:04/320:29 Patient arrived in [...] Physician role handed off by Nils Argueta, DTgp594:32 Santiago Rajan MD is Attending Physician.rf208:16 Diet tray given.mj3Aomnlgvvdlen Medications:04/322:16 Drug: Ibuprofen 600 mg [ibuprofen 600 mg tablet (1 tabs)] Route: PO;kk223:48 Follow up: Pain 3/10 Lcfegei733/0410:16 Drug: Propranolol 10 mg Route: PO;ef110:46 Follow up: Response: No adverse yvskzxqzex728:16 Drug: sertraline 50 mg Route: PO;ef110:46 Follow up: Response: No adverse :16 Drug: Topiramate 75 mg Route: PO;ef110:45 Follow up: Response: No adverse jqhpcomsbe451:16 Drug: Loratadine 10 mg Route: PO;ef110:45 Follow up: Response: No adverse gnphsfepjf846:17 Drug: ARIPiprazole 10 mg Route: PO;ef110:46 Follow up: Response: No adverse jbswgpurfd737:45 Drug: Acetaminophen Tablet 650 mg Route: PO;ef111:45 Follow up: Pain 0/10 Zdlqvik7Nqkrrdh:16:06 Discharge ordered by .rf216:43 Condition: stable.tlm16:43 Discharge inst ructions given to patient, Instructed on dischargeinstructions, followup and referral plans. Demonstrated understanding of instructions.16:43 Discharge Assessment: Patient awake, alert and oriented x 3. Nocognitive and/orfunctional deficits noted. Patient verbalized understanding of dispositioninstructions. Patient verbalized understanding of disposition instructions.Patient hasno functional deficits.16:43 Patient left the ED.tlmSignatures:Magaly Gray, RN RN tlmKnightZakia, RN RN tn0OngtvfqNils Argueta MD MD kw3BztbmFortunato humphrey, RN RN dx1IgqrxxzxAmi dang, RN RN kp0RddeIna Jack am11Measheaw, Usha oj2Wtjkx, MD SARAH Henderson xd8Fvtwxxfrizf: (The following items were deleted from the [...] Pt presents to the EDby [employer] for py6jphhbhby ideations. A s PSA was going into her room pt was tapping her head offthewall. Pt was discharged from our unit on Wednesday (04/11), [facility] Wednesday [facility]. Pt had walked out [facility] back to [facility] where the police picked her [...] rce(s) Supporting Document(s) ID Date Data Source [id number] 04/12/2021 04:52:00 AM EDT [facility] Name Value Range Interpretation Code Description Data Stephanie rce(s) Supporting Document(s) Sodium 138 mmol/L 136-145 Normal (applies to non-numeric resul ts) [facility] Potassium 3.5-5.1 Normal (applies to non-numeric resul ts) [facility] Chloride 102 mmol/L 98-107 Normal (applies to non-numeric resul ts) [facility] Carbon Dioxide CO2 21-32 Normal (applies to non-numer ic results) [facility] Anion Gap 5.0-16.0 Normal (applies to non-numeric resul ts) [facility] BUN 13 mg/dL 7-18 Normal (applies to non-numeric results) [facility] Creatinine,Serum 0.7-1.2 Normal (applies to non-numeric results) [facility] GFR >60 Normal (applies to non-numeric results) [facility] Glucose Level 97 mg/dL 60-99 Normal (applies to non-numeric re sults) [facility] Reference range is only applicable when patient is fasting Note the following drug interference: Sulfasalazine Sulfapyridine Can see falsely depressed Can see falsely elevated result with up to 17% results with up to 11% decrease in measurement increase in measurement Recommend patients be collected for this test prior to administration of either drug. Calcium 8.5-10.1 Normal (applies to non-numeric resul ts) [facility] Bilirubin,Total 0.1-1.9 Normal (applies to non-numeric results) [facility] SGOT(AST) 30 U/L 15-37 Normal (applies to non-numeric resul ts) [facility] Note the following drug interference: Sulfasalazine Sulfapyridine Can see falsely depressed Can see falsely elevated result with up to 10% results with up to 10% decrease in measurement increase in measurement Recommend patients be collected for this test prior to administration of either drug. SGPT(ALT) 54 U/L 12-78 Normal (applies to non-numeric resul ts) [facility] Note the following drug interference: Sulfasalazine Sulfapyridine Can see falsely depressed Can see falsely elevated result with up to 29% results with up to 10% decrease in measurement increase in measurement Recommend patients be collected for this test prior to administration of either drug. Alkaline Phosphatase 130 U/L 38-126 Above high normal [facility] can increase Alkaline Phosp le vels up to 2 times the normal adult value. Normal values for children and adolescents are 2 to 3 times the normal adult value. Total Protein 6.0-8.2 Above high normal [facility] Albumin Level 3.4-5.0 Normal (applies to non-numeric re sults) [facility] ID Date Data Source [id number] 04/12/2021 04:52:00 AM EDT [facility] Name Value Range Interpretation Code Description Data Stephanie rce(s) Supporting Document(s) Acetaminophen 10.0-30.0 Below low normal [facility] ID Date Data Source [id number] 04/12/2021 04:52:00 AM EDT [facility] Name Value Range Interpretation Code Description Data Stephanie rce(s) Supporting Document(s) Magnesium 1.8-2.4 Normal (applies to non-numeric resul ts) [facility] ID Date Data Source [id number] 04/12/2021 04:52:00 AM EDT [facility] Name Value Range Interpretation Code Description Data Stephanie rce(s) Supporting Document(s) Troponin I 0.000-0.056 Normal (applies to non-numeric resu lts) [facility] ID Date Data Source [id number] 04/12/2021 04:52:00 AM EDT [facility] Name Value Range Interpretation Code Description Data Stephanie rce(s) Supporting Document(s) Salicylate 2.8-20.0 Below low normal [facility] ID Date Data Source [id number] 04/12/2021 04:51:00 AM EDT [facility] Name Value Range Interpretation Code Description Data Stephanie rce(s) Supporting Document(s) Ethanol Less than 10.0 Normal (applies to non-numeric r esults) [facility] ID Date Data Source [id number] 04/12/2021 04:23:00 AM EDT [facility] Name Value Range Interpretation Code Description Data Stephanie rce(s) Supporting Document(s) White Blood Count 3.5-10.5 Normal (applies to non-numeri c results) [facility] Red Blood Count 3.90-5.00 Normal (applies to non-numeric results) [facility] Hemoglobin 12.0-15.5 Normal (applies to non-numeric resul ts) [facility] Hematocrit 34.9-44.5 Normal (applies to non-numeric resul ts) [facility] Mean Corpuscular Volume 81.2-95.1 Normal (applies to non- numeric results) [facility] Mean Corpuscular Hgb 25.6-32.2 Normal (applies to non-num deena results) [facility] Mean Corpuscular Hgb Conc 32.0-36.0 Normal (applies to no n-numeric results) [facility] Red Cell Distribution Width 11.9-15.5 Normal (appli es to non-numeric results) [facility] Platelet Count 306 x10 3/uL 150-450 Normal (applies to non-numeric results) [facility] Mean Platelet Volume 9.4-12.4 Normal (applies to non-num deena results) [facility] Neutrophils% (Auto) 31.0-71.0 Normal (applies to non-nume frank results) [facility] Lymphocytes% (Auto) 20.0-55.0 Normal (applies to non-nume frank results) [facility] Monocytes% (Auto) 4.0-12.0 Normal (applies to non-numeri c results) [facility] Eosinophils% (Auto) 1.0-8.0 Normal (applies to non-nume frank results) [facility] Basophils% (Auto) 0.0-2.0 Normal (applies to non-numeri c results) [facility] Immature Granulocytes% (Auto) 0.0-2.0 Normal (alexander lies to non-numeric results) [facility] Neutrophils# (Auto) 1.50-6.20 Above high normal [facility] Lymphocytes# (Auto) 1.20-4.00 Normal (applies to non-nume frank results) [facility] Monocytes# (Auto) 0.00-0.90 Normal (applies to non-numeri c results) [facility] Eosinophils# (Auto) 0.00-0.50 Normal (applies to non-nume frank results) [facility] Basophils# (Auto) 0.00-0.20 Normal (applies to non-numeri c results) [facility] Immature Granulocytes# (Auto) 0.00-7.00 No rmal (applies to non-numeric results) [facility] ID Date Data Source [id number] 04/12/2021 03:50:00 AM EDT [facility] Name Value Range Interpretation Code Description Data Stephanie rce(s) Supporting Document(s) Respiratory specimen severe acute respir atory syndrome coronavirus 2 (SARS-CoV-2) RNA Not Detected [facility] This lab was ordered by [facility] [place] and reported by . ID Date Data Source [id number] 04/12/2021 05:08:00 AM EDT [facility] Name Value Range Interpretation Code Description Data Stephanie rce(s) Supporting Document(s) RP Internal Control Passed Normal (applies to non-nume frank results) [facility] Adenovirus None Detect Normal (applies to non-numeric resu lts) [facility] Coronavirus 229E None Detect Normal (applies to non-numeri c results) [facility] Coronavirus HKU1 None Detect Normal (applies to non-numeri c results) [facility] Coronavirus NL63 None Detect Normal (applies to non-numeri c results) [facility] Coronavirus OC43 None Detect Normal (applies to non-numeri c results) [facility] SARS-CoV-2 Not Detect Normal (applies to non-numeric resul ts) [facility] Negative results do not preclude SARS-Co V-2 infection and should not be used as the sole basis for treatment or other patient management decisions. Negative results must be combined with clinical observations, patient history, and epidemiological information. Testing was performed using the [employer] real-time nested multiplexed PCR Respiratory Panel 2.1 [...] Detect Normal (applies to non-n umeric results) [facility] Rhino/Enterovirus None Detect Normal (applies to non-numer ic results) [facility] Influenza A None Detect Normal (applies to non-numeric res ults) [facility] Influenza B None Detect Normal (applies to non-numeric res ults) [facility] Parainfluenza Virus 1 None Detect Normal (applies to non-n umeric results) [facility] Parainfluenza Virus 2 None Detect Normal (applies to non-n umeric results) [facility] Parainfluenza Virus 3 None Detect Normal (applies to non-n umeric results) [facility] Parainfluenza Virus 4 None Detect Normal (applies to non-n umeric results) [facility] Respiratory Syncytial Virus None Detect Norm al (applies to non-numeric results) [facility] Borvttella Parapertussis None Detect Normal (applies to non-numeric results) [facility] Bordetella Pertussis None Detect Normal (applies to non-nu meric results) [facility] Chlamydia Pneumoniae None Detect Normal (applies to non-nu meric results) [facility] Mycoplasma Pneumoniae None Detect Normal (applies to non-n umeric results) [facility] Methodology: Multiplexed PCR Refer ence Range: None detected ID Date Data Source [id number] 04/12/2021 04:42:00 AM EDT [facility] Collected By: Nurse Initials: cs Time Collected: 324 Collected By: Nurse Initials: cs Time Collected: 324 Name Value Range Interpretation Code Description Data Stephanie rce(s) Supporting Document(s) Color,Urine Colorl-Dk Y Normal (applies to non-numeric res ults) [facility] Clarity,Urine Clear [facility] Specific [place],Urine 1.005-1.030 Normal (applies to non- numeric results) [facility] pH,Urine 5.0-8.0 Normal (applies to non-numeric resul ts) [facility] Protein,Urine Negative [facility] [place] Glucose,Urine Negative Normal (applies to non-numeric re sults) [facility] Ketones,Urine Negative [facility] Blood,Urine Negative Normal (applies to non-numeric resu lts) [facility] Bilirubin,Urine Negative Normal (applies to non-numeric results) [facility] Urobilinogen,Urine 0.2-1.0 Normal (applies to non-numer ic results) [facility] Leukocyte Esterase,Urine Negative Normal (applies to non -numeric results) [facility] Nitrite,Urine Negative Normal (applies to non-numeric re sults) [facility] ID Date Data Source [id number] 04/12/2021 04:42:00 AM EDT [facility] Collected By: Nurse Initials: cs Time Collected: 324 Collected By: Nurse Initials: cs Time Collected: 324 Name Value Range Interpretation Code Description Data Stephanie rce(s) Supporting Document(s) RBC,Urine None Seen Normal (applies to non-numeric resul ts) [facility] WBC,Urine None Seen [facility] Casts,Urine None Seen Normal (applies to non-numeric resu lts) [facility] Squamous Cells,Urine None Seen [facility] Amorphous Sediment,Urine None Seen [facility] Bacteria,Urine None Seen [facility] ital ID Date Data Source [id number] 04/12/2021 04:32:00 AM EDT [facility] Name Value Range Interpretation Code Description Data Stephanie rce(s) Supporting Document(s) UDS Benzodiazepines Screen Negative Normal (applies to n on-numeric results) [facility] UDS Cocaine Screen Negative Normal (applies to non-numer ic results) [facility] UDS Ampetamine Screen Negative Normal (applies to non-nu meric results) [facility] UDS Cannabinoids Screen Negative Normal (applies to non- numeric results) [facility] UDS Opiates Screen Negative Normal (applies to non-numer ic results) [facility] UDS Barbiturates Screen Negative Normal (applies to non- numeric results) [facility] Threshold Levels Benzodiazepine 200 ng/mL Cocaine 300 ng/mL Amphetamines 1000 ng/mL Cannabinoids (THC) 50 ng/mL Opiates 300 ng/mL Barbiturates 200 ng/mL All positive findings are presumptive and unconfirmed. Confirmation of positive results are performed only at request of provider. Unconfirmed results must not be used for non-medical purposes (i.e. preemployment and legal purposes) ID Date Data Source [id number] 04/11/2021 01:49:00 PM EDT [address] DISCHARGE SUMMARYPATIENT NAME: YARELI HATCH MR#: [id number] PHYSICIAN: BOGDAN MACIAS MDAUTHOR: Colleen SMITH,Bogdan DATE: 04/09/21 #: [id number] DATE: 04/11/21HistoryIdentificationThis is a 27-iscsj-qzh white female.Chief Complaint"I am having suicidal thoughts and anxiety."Reason for AdmissionPatient is well known to us. She presented to the ER with the complaint ofincreased suicidal ideations after an argument with her significant other. Shehas a history of suicidal ideations and multiple inpatient treatment. Patientcannot contract for safety. Hence, she was hospitalized.History of Presenting IllnessPatient was seen today along with the flight operation coordinator, Gloria, and a PAstudent from [facility]. She presented to the ER with [facility] due to patient contacting them stating [...] hasn't beensleeping for 3 weeks.Patient was at [facility] since and transferred to [facility] and discharged. She states that she was in a [place] anddischarged from there and has been [...] [facility] [place]. She is on AOT since 01/09/21.Medical HistoryDenies [...] she would prefer to bedischarged back to [facility] as she is no longer [...] She also stated that [facility] and she would come back into thehospital if needed as well. She also denies having any medical issues, andwanting to be seen by therapist and psychiatrist and [facility] [place] She was also offered inpatient outpatient chemical [...] 240Continue taking these medications:IBUPROFEN (IBUPROFEN) 400 MG [id number] MILLIGRAM Orally EVERY 6 HOURS NEEDED as needed for HeadacheQty = 21Loratadine* (Claritin*) 10 MG MVDJQU53 MILLIGRAM Orally DAILYDays = 30 Qty = 30PROPRANOLOL HCL (Inderal*) 10 MG POGWAE77 MILLIGRAM Orally TWICE DAILYDays = 30 Qty = 60TOPIRAMATE (TOPAMAX) 25 MG HUUCCR03 MILLIGRAM Orally DAILYDays = 60 Qty = 30SERTRALINE (Zoloft*) 50 MG KUNIPZ058 MILLIGRAM Orally DAILYDays = 30 Qty = 30MONTELUKAST SODIUM (MONTELUKAST) 10 MG VZKHES94 MILLIGRAM Orally DAILYDays = 30 Qty = 30Aripiprazole* (Abilify*) 10 MG EOGWWR57 MILLIGRAM Orally DAILYPRAZOSIN HCL (PRAZOSIN HCL) 2 MG CAPSULE2 MILLIGRAM Orally AT BEDTIMEOlanzapine* (Zyprexa*) 5 MG TABLET5 MILLIGRAM Orally AT BEDTIMEAripiprazole (Abilify Maintena) 400 MG SUSER.FBN235 MILLIGRAM Intramuscularly B49NJcf = 1Instructions:last im inj received 04/03/21Discharge Activity: As toleratedDischarge diet: RegularFollow-upFollow up with your Primary care physicianFollow up with therapiest and psychiatristrecommended outpt chemical dependencyReferralsOrdered ReferralsOGALLAL[facility] [place] [address] [phone]) on April 15 at9:[address] Giles[facility] [place], [place] [id number] In person follow up appointment [facility](#[phone]) on April 18 at2:00 pm with Grayson.DATE SIGNED: 04/11/21 Electronically Melania dTIME SIGNED: 1353 BOGDAN MACIAS MD Name Value Range Interpretation Code Description Data Stephanie rce(s) Supporting Document(s) ID Date Data Source [id number] 04/11/2021 09:25:00 AM EDT [facility] [id number] NAME: YARELI HATCH#: [id number] PHYSICIAN: HUBER VELAZQUEZ #: [id number] ADM. DATE: 04/09/21PATIENT : 00 DISCH. DATE: [...] to be addressed at [facility] care follow-upappointmentDischarge InformationDISCHARGE INFORMATION* Thank you for choosing [facility] and allowing us toserve you* Our Goal is to provide the highest quality of care.* This discharge information is to help you better understand your diagnosisand medication* Avoid taking ouqj-fnf-okvhijw medicines unless approved by your physician.* Take your medications as prescribed. DO NOT stop any medications unlessapproved first* Weigh yourself daily. Report any gain of 5 lbs in a week* 24 Hour Crisis HOTLINE available: Call Reachout at [phone]* Chem. Dependency: Walk in Clinics [place] ([phone]) and [place] ([phone]) anytime Wednesday thru Wednesday 8 to 10am. [place] ([phone]) anytimeWednesday thru Wednesday 8 to 10am. [facility] ([phone]) Wednesday or Wednesday from 8to 10am (Bring $30 to First [facility]) SMOKIN G CESSATION* Smoking is dangerous to your health. It delays the healing process, andworks against your medications. Not smoking will improve your health* Our hospital participates with the Opt-to-Quit program. You will be contactedafter discharge by the [facility] Smoker's Quitline for support with tobaccocessation. You have the option once contacted to refuse this service.* You can also go online to www.Casengo. Free nicotine replacementsare available Attention* You should [...] rce(s) Supporting Document(s) ID Date Data Source [id number] 04/10/2021 01:59:00 PM EDT [address] HEALTH PROGRESS NOTEPATIENT NAME: YARELI HATCH PHYSICIAN: BOGDAN MACIAS MDAUTHOR: Colleen SMITH,DhruvADM. DATE: 04/09/21 MR#: [id number] NOTE DATE: 04/10/21 RM#: [id number] TIME: 1402 is a 25-fcoyl-hjw white female.CC/Hx Present Illness"I am having suicidal thoughts and anxiety."Events Since Last EntryPatient reported that she has been feeling better, she stated that she wouldlike to go back to [facility], she stated that she was [...] self/othersDATE SIGNED: 04/10/21 Electronically SignedTIME SIGNED: 1401 BOGADN MACIAS MD Name Value Range Interpretation Code Description Data Stephanie rce(s) Supporting Document(s) ID Date Data Source [id number] 04/10/2021 07:18:00 AM EDT [address] HEALTH HISTORY AND PHYSICALPATIENT NAME: YARELI HATCH MR#: [id number] PHYSICIAN: BOGDAN MACIAS MDAUTHOR: Evi SMITH,S. DATE: [...] Home Medication ListAllergiesCoded Allergies:risperidone (08/04/19)ExamVital SignsVital Signs-24 HRS09/564104Vwir 98.8Pulse 80Resp 18B/P 122/65B/P MeanPulse Ox 99O2 DeliveryO2 Flow BmdcGpO7Ypkwcsdehr/PlanDiagnosis/Problem1. Major depressive disorderStatus Chronic2. Suicide attemptStatus Acute3. Bipolar affective disorderStatus Chronic4. Bipolar disorder5. Borderline personality disorderStatus Chronic6. Obesity, morbidStatus ChronicDATE SIGNED: 04/10/21 Vidai jose SignedTIME SIGNED: 0732 DORI KENNEDY MD Name Value Range Interpretation Code Description Data Stephanie rce(s) Supporting Document(s) ID Date Data Source [id number] 04/09/2021 04:05:00 PM EDT [address] PSYCHIATRIC ASSESSMENTPATIENT NAME: YARELI HATCH MR#: [id number] PHYSICIAN: BOGDAN MACIAS MDAUTHOR: Surendra SMIHT,P. DATE: 04/09/21 RM#: [id number]s is a 85-bydeu-uwu white female.Chief Complaint"I am having suicidal thoughts and anxiety."Reason for AdmissionPatient is well known to us. She presented to the ER with the complaint ofincreased suicidal ideations after an argument with her significant other. Shehas a history of suicidal ideations and multiple inpatient treatment. Patientcannot contract for safety. Hence, she was hospitalized.History of Presenting IllnessPatient was seen today along with the flight operation coordinator, Gloria, and a PAstudent from [facility]. [facility] stating with [...] hasn't beensleeping for 3 weeks.Patient was at [facility] since and transferred to [facility] and discharged. She states that she was in a [place] anddischarged from there and has been trying to be admitted to several hospitalsthere. Stated she cannot contract for safety and thus requested an inpatienttreatment. She reported increased stress due to not feeling safe at her TLSresidence due to another resident, increased family conflict due to beingtransgender and ex being in penitentiary. She also reported that she was notfollowing the rule of [facility]. She is not diligent with medications.Portions of this section were scribed by Shell Ariza on 04/09/21 at 1638Past Psych/Medical HistoryPsychiatric HistoryShe has long history of psychiatric problem including bipolar disorder, ADHD,anxiety, and depression with numerous hospitalizations. She has attemptedsuicide multiple times by overdose and by cutting herself. She was dischargedjust one day before her last hospitalization. [facility] [place]. She is on AOT since 01/09/21.Medical HistoryDenies [...] rce(s) Supporting Document(s) ID Date Data Source [id number] 04/09/2021 07:55:00 AM EDT [facility] Name Value Range Interpretation Code Description Data Stephanie rce(s) Supporting Document(s) LCOVID-19, [facility] This [facility] was ordered by [facility] and [facility] ID Date Data Source [id number] 04/09/2021 08:19:00 AM EDT [facility] [place] Name Value Range Interpretation Code Description Data Stephanie rce(s) Supporting Document(s) COVID-19, CORDELL NEGATIVE NEGATIVE N [facility] Methodology: Isothermal Nucleic Acid Amp lification [...] Emergency Use Authorization. ID Date Data Source [id number] 04/08/2021 11:32:00 PM EDT [facility] [place] Name Value Range Interpretation Code Description Data Stephanie rce(s) Supporting Document(s) SALICYLATE < 1.7 mg/dL 0.0-20.0 N [facility] ID Date Data Source [id number] 04/08/2021 11:32:00 PM EDT [facility] [place] Name Value Range Interpretation Code Description Data Stephanie rce(s) Supporting Document(s) ACETAMINOPHEN < 2.0 ug/mL 0-30 [facility] Date Data Source [id number] 04/08/2021 11:32:00 PM EDT [facility] [place] Name Value Range Interpretation Code Description Data Stephanie rce(s) Supporting Document(s) ETOH 0.004 g/dL NONE DETECTED [facility] ID Date Data Source [id number] 04/08/2021 11:32:00 PM EDT [facility] Name Value Range Interpretation Code Description Data Stephanie rce(s) Supporting Document(s) GLU 100 mg/dL 70-110 [facility] Patients taking Sulfasalazine may have f alsely depressedGlucose levels. Patients taking Sulfapyridine may havefalsely elevated Glucose levels. Patients should be drawnfor Glucose before the initial administration of eitherdrug. BUN 12 mg/dL 7-23 [facility] CRE 0.644 mg/dL 0.500-1.300 [facility] GFR > 60 mL/min [facility] CHLORIDE 111 mmol/L 99-110 [facility] NA 142 mmol/L 136-147 [facility] POTASSIUM 3.9 mmol/L 3.5-5.1 [facility] TCO2 28 mmol/L 20-33 [facility] ANION GAP 6.9 10.0-20.0 [facility] CA 8.4 mg/dL 8.3-10.7 [facility] ALKALINE PHOS 124 U/L 45-117 [facility] TP 7.4 g/dL 6.0-7.8 [facility] ALB 3.5 g/dL 3.5-5.0 [facility] ESRD Dialysis patient Albumin reference range: 2.9-4.4 g/dL GL 3.9 g/dL 2.3-3.5 [facility] A/G 0.9 1.0-2.5 [facility] T. BILIRUBIN 0.2 mg/dL 0.1-1.1 [facility] [place] Total Bilirubin is n ot recommended forpatients undergoing treatment with eltrombopag (Promacta)due to the potential for falsely elevated results. ALTI 55 U/L 6-54 [facility] Patients taking Sulfasalazine and/or Sul fapyridine may havefalsely depressed ALT levels. Patients should be drawn forALT before the initial administration of either drug. AST 31 U/L 6-38 [facility] Patients taking Sulfasalazine and/or Sul fapyridine may havefalsely depressed AST levels. Patients should be drawn forAST before the initial administration of either drug. ID Date Data Source [id number] 04/08/2021 11:05:00 PM EDT [facility] Name Value Range Interpretation Code Description Data Stephanie rce(s) Supporting Document(s) WBC 8.86 x10E3/uL 4.0-10.5 [facility] RBC 4.27 x10E6/uL 4.20-5.40 [facility] Hemoglobin 12.5 g/dL 12.0-16.0 [facility] Hematocrit 38.3 % 37.0-47.0 [facility] MCV 89.7 fL 81.0-99.0 [facility] MCH 29.3 pg 27.0-31.0 [facility] MCHC 32.6 g/dL 32.7-35.6 L [facility] RDW 12.1 % 11.5-14.0 [facility] Platelet count 266 x10E3/uL 150-450 [facility] ital MPV 9.6 fl 6.9-9.5 [facility] Neutrophils 57.4 % 34-64 [facility] Lymphocytes 32.3 % 25-45 [facility] Monocytes 7.8 % 1.7-10.6 [facility] Eosinophils 1.7 % 0.4-7.0 [facility] Basophils 0.3 % 0.1-2.0 [facility] Imm. Gran. 0.5 % 0.1-2.0 [facility] Abs. Neutro. 5.09 x10E3/uL 1.2-7.6 [facility] [place] Abs. Lymph. 2.86 x10E3/uL 1.0-3.5 [facility] Abs. Stone. 0.69 x10E3/uL 0.1-1.0 N [facility] Abs. Eosin. 0.15 x10E3/uL 0.1-0.7 [facility] Abs. Baso. 0.03 x10E3/uL 0.0-0.1 N [facility] l Abs. Imm. Gran. 0.04 x10E3/uL 0.0-0.1 [facility] spital ANRBC% 0 % 0 [facility] ID Date Data Source [id number] 04/08/2021 11:56:00 PM EDT [facility] Name Value Range Interpretation Code Description Data Stephanie rce(s) Supporting Document(s) PCP VISTA NEG NEGATIVE [facility] MINIMUM LEVEL OF DETECTION IS 25 ng/ml BENZODIAZEPINES NEG NEGATIVE [facility] al MINIMUM LEVEL OF DETECTION IS 200 ng/ml COCAINE VISTA NEG NEGATIVE [facility] MINIMUM LEVEL OF DETECTION IS 300 ng/ml AMPHETAMINES NEG NEGATIVE [facility] al MINIMUM LEVEL OF DETECTION IS 1000 ng/ml BARBITURATES NEG NEGATIVE [facility] al CUTOFF CONCENTRATION IS 200 ng/ml CANNABINOIDS NEG NEGATIVE [facility] al CUTOFF CONCENTRATION IS 50 ng/ml METHADONE VISTA NEG NEGATIVE [facility] al MINIMUM LEVEL OF DETECTION IS 300 ng/ml OPIATE VISTA NEG NEGATIVE [facility] MINIMUM DETECTION LEVEL IS 300 ng/ml ID Date Data Source [id number] 04/08/2021 11:30:00 PM EDT [facility] Name Value Range Interpretation Code Description Data Stephanie rce(s) Supporting Document(s) URINE COLOR Yellow [facility] UAPR Turbid [facility] UGLU Negative NEGATIVE [facility] URINE BILIRUBIN Negative NEGATIVE [facility] al UKET Negative NEGATIVE [facility] USG 1.021 1.010-1.025 [facility] UBLO Negative NEGATIVE [facility] UpH 8.5 5.0-8.0 H [facility] UPRO Trace Negative [facility] UUB 1.0 mg/dL 0.2-1.0 [facility] UNIT Negative Negative [facility] ULEU Trace Negative [facility] ID Date Data Source [id number] 04/08/2021 11:30:00 PM EDT [facility] Name Value Range Interpretation Code Description Data Stephanie rce(s) Supporting Document(s) URINE RBC 0-2 RBCs/HPF NONE [facility]EN [facility] URINE WBC 3-5 WBCs/HPF NONE [facility]EN [facility] URINE BACTERIA Few NONE [facility]EN [facility] URINE EPI. Many NONE SEEN [facility] URINE CRYSTAL MANY AMORPHOUS NONE SEEN [facility] ID Date Data Source [id number] 04/08/2021 11:30:00 PM EDT [facility] Name Value Range Interpretation Code Description Data Stephanie rce(s) Supporting Document(s) HCG QUAL URINE Negative Negative [facility] ID Date Data Source [id number] 04/09/2021 04:09:00 PM EDT [facility] [place] Physician DocumentationClaxton-Mont[facility] edical CenterName: Yareli DuvallAge: 20 yrsSex: FemaleDOB: 2000MRN: [id number] Date: 04/08/2021Time: 22:26Account#: [id number] MD: NONE, - Per PatientED Physician Santiago RajanDiszach Summary:04/09/21 12:49Hospitalization OrderedHospitalization Status: Inpatient Sgcwycilfkx3Tvrcjksh: Surendra Ufgsgmfa2Vrjkayte: Mental Health Crpzfz8Xzjmgtork: Cskqwkfo6Tswezys: an acute znhtfusrvombep2Lblotjud: are wgqmuzmjyqk1Ikbt Assignment:sd1Rjygfuvml- Major depressive disorder, recurrent, xjieumdgyvtqr7Lwvmpniizj Information- Admission Type: Inpatient Status.cn5Upguw:- Medication Reconciliationrf2- SBARrf2- Medication Reconciliation Form - 2nd Copyrf2- Psych. VTLVpq0SDL:03/2906:59 This 20 yrs old White Female presents to ER via Police with complaints ofPsych Problem.br07:19 20-year-old female with extensive psychiatric history of bipolar ADHDanxiety brdepression presents complaints of increasing suicidal ideation after argumentwithsignificant other. 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 prazosin 2 mg Oral capsule 1 cap every day at bedtime2. Zyprexa 5 mg Oral tablet 1 tab nightly3. montelukast 10 mg oral tablet 1 tab daily4. topiramate 75mg oral tablet daily5. aripiprazole 10 mg oral tablet 1 tab daily6. aripiprazole 400 mg intramuscular suspension,extended release syringe 400 iewzadq86 days7. sertraline 50 mg oral tablet 1 [...] Temp 97.3; Pulse Ox 98% on R/A; Hbpbzp129.33 kg (R); wn7Lxscok 5 ft. 6 in. ; Pain 0/10;03/2908:38 BP 123 / 77; Pulse 66; Resp 18; Temp 97(TE); Pulse Ox 98% on R/A;sw215:20 BP 126 / 70 (auto/); Pulse 70 MON; Pul se Ox 97% ;ef109/2822:31 Body Mass Index 37.12 (104.33 kg, 167.64 cm)kk309/2:31 Pain Scale: Xgmnuyl8KMJ:03/2822:45 Patient medically screened.br2906:53 Transition of care: Care assumed from Zeeshan Grover MD.rf206:54 Data reviewed: vital signs, nurses notes, lab test result(s), CBC, druglevel(s), en1hcclidsdbpors, alcohol, salicylate, electrolytes, hepatic panel, urinalysis,urine drugscreen. [...] Order name: Medically Cleared for Eval by-Psychosocial, [place] (YE);Complete Time: rf213:27Dispensed Medications:08:37 Drug: sertraline 50 mg [sertraline 50 mg tablet (1 tabs)] Route: PO;sw215:21 Follow up: Response: No adverse izzwmguwbk588:37 Drug: Topiramate 75 mg [topiramate 25 mg tablet (3 tabs)] Route: PO;sw215:21 Follow up: Response: No adverse iveiolwkkk309:38 Drug: ARIPiprazole 10 mg [aripiprazole 10 mg tablet (1 tabs)] Route: PO;215:22 Follow up: Response: No adverse rygkjfoyhw143:38 Drug: Loratadine 10 mg [loratadine 10 mg tablet (1 tabs)] Route: PO;215:21 Follow up: Response: No adverse sofuzkiefs751:38 Drug: Montelukast 10 mg Route: PO;215:21 Follow up: Response: No adverse nsyedxksqr586:38 Drug: Propranolol 10 mg [propranolol 10 mg tablet (1 tabs)] Route: PO;215:21 Follow up: Response: No adverse roman udblqmb4Hzkfgrymks:Dispatcher [employer] Fortunato Burrell RN RN xw3JxbguyzZeeshan armstrong MD MD brKelly, Krista, RN RN zq6SgemOlivia RN RN li5MfimaSantiago betts MD MD wx6JztfheyrAmi arthur RN fs6Oazdbzpiism: (The following items were deleted from the chart)01:16 04/08 22:33 Home Meds: Lexapro 10 mg Oral tablet 1 tab nightly; kk3kk3 Name Value Range Interpretation Code Description Data Stephanie rce(s) Supporting Document(s) ID Date Data Source [id number] 04/09/2021 04:09:00 PM EDT [facility] [place] [facility]Cl[facility] terName: Yareli DuvallAge: 20 yrsSex: FemaleDOB: 2000MRN: [id number] Date: 04/08/2021Time: 22:26Account#: [id number] Jitendra SMITH: NONE, - Per PatientDiagnosis: Major depressive disorder, recurrent, unspecifiedPresentation:03/2822:28 Presenting complaint: Patient states: "I am having suicidal thoughts andanxiety.". vh1Ddjgftueiwq Screening: Have you been diagnosed with COVID-19 in the past 30days? noAre you currently on quarantine by Public Health? no Flu-like symptoms reportedin thelast 14 days: no. Have you had close contact with confirmed or suspectedCOVID-19 case?no Do you live in a setting where a large of amount of people live, such [facility], family care, fpc, etc? no. Have you traveled to a location withwidespread orongoing COVID-19 community spread or outside of [facility]? no Have you traveledinternationally or had contact with someone that has traveled and has been illin thepast 3 weeks? no Have you received the COVID vaccine? Yes. Communication SpeaksEnglish? Yes, is preferred language. Language Line Services needed? No Are TDDneeded?No. Best learning method: discussion. Learning barriers: none identified.22:28 Acuity: Triage 8rt638:28 Method Of Arrival: Erujyabx061:29 Presenting complaint: Badge #[id number] from [facility] states patient madesuicidal bt8kunsfokwsf and called police to be brought in.22:30 Acuity Assignment: Triage 7vg211:50 International Travel Fever No. Communicable Disease Screen: Negative forfever>/= 100 is1kecyabn Fahrenheit. Communicable disease screen is negative. (-) rash orunusual skinlesion (-) travel/contact with traveler (-) respiratory symptoms.Triage Assessment:22:34 General: Appears in no apparent distress, well nourished, well groomed,Behavior is jg9fbyeemi, appropriate for age, cooperative, Denies fever, chills. 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 prazosin 2 mg Oral capsule 1 cap every day at bedtime2. Zyprexa 5 mg Oral tablet 1 tab nightly3. montelukast 10 mg oral tablet 1 tab daily4. topiramate 75mg oral tablet daily5. aripiprazole 10 mg oral tablet 1 tab daily6. aripiprazole 400 mg intramuscular suspension,extended release syringe 400 qkpidcp92 days7. sertraline 50 mg oral tablet 1 [...] threats or abuse. Denies injuries from another.Nutritional dh4nyjmlrgpx: No deficits noted. Offer of HIV testing: patient was previouslyofferedscreening. Fall Risk None identified.Assessment:03/2822:37 Reassessment: see triage assessment by this screen writer.kk323:59 Reassessment: Patient appears in no apparent distress at this time.jw509/2900:52 Reassessment: Patient appears in no apparent distress at this time.kk302:19 Reassessment: No changes from previously documented assessment.jw503:49 Reassessment: No changes from previously documented assessment.jw505:06 Reassessment: No changes from previously documented assessment.jw506:34 Reassessment: No changes from previously documented assessment.jw508:29 Reassessment: Patient appears in no apparent distress at this time. Nochanges from hl4ewzyhmenzv documented assessment. Sitter at bedside. .09:59 Reassessment: Patient appears in no apparent distress at this time. Nochanges from mw0ddbtidcwpg documented assessment. Patient sleeping in bed. Sitter at bedside. .10:57 Reassessment: Patient appears in no apparent distress at this time. Nochanges from ri5zjcpofayxp documented assessment. Patient sleeping. Sitter at bedside. .Psychosocial:04:52 Narrative PSA spoke to Dulce at [facility] ([phone]) who states that thepatient was hn2jjwt all day. She states that she was [...] Completed. Interventi on: Observation Level 3.Referral Information: qu0Jtwtlugqlc referral is generated by a police agency: [employer]. The patient wasreferred forevaluation because patient had voiced suicidal ideations.05:09 Subjective: The patients chief complaint is Pt presents to the ED by [employer].Patient tf2mjafmym feeling suicidal for "a while" now and [...] history of anxiety, Bipolar Disorder, Depression, self-mutilation, cg1Formt: [employer]. Mental Health Admissions: several. pt was last at [facility] 04/01/21 anddischarged 04/03 Current Outpatient Mental Health Services: [facility] [place] Living Environment: Family / Home Support: poorThepatient currently lives in a [facility] residence. The patient is single. Detox /RehabAdmissions: None. Current Outpt Alcohol or Substance Abuse Services: None.05:16 Patient presents to Emergency Department with the following symptomswithin the past 2 hi5bftut: suicidal ideation with plan for jump in [...] patient status is not currently needed orappropriate. el4Wsjzqlkuebur: Psych MD informed of patient's status at 06:00, ED MD notified ofpatients status at 06:34. Disposition: Medically cleared for disposition by [facility].Psychiatric Consult is performed by phone with Dr David STEVENS. DSM-V DX [place] Idiagnosis:Depression, Unspecified. Insurance Pre-Certification: Not Required. IMHUAdmissionCriteria: [...] dosageadjustments. Awaiting. The patient is not a food service substitute or militarydependent.[place]lliott Suicide Severity Rating Scale: Suicidal Ideation Rating 5; IntensityofIdeations Rating 25; Suicidal Behavior Rating 0.Psych:00:00 Subjective: Patient's mood is elevated, Delusions are denied,Hallucinations are denied ue3Qhdupb thoughts of suicide. Denies suicidal plan. Objective: [...] Temp 97.3; Pulse Ox 98% on R/A; Ktiyuy744.33 kg (R); ll8Zoibgt 5 ft. 6 in. ; Pain 0/10;03/2908:38 BP 123 / 77; Pulse 66; Resp 18; Temp 97(TE); Pulse Ox 98% on R/A;sw215:20 BP 126 / 70 (auto/); Pulse 70 MON; Pulse Ox 97% ;ef109/2822:31 Body Mass Index 37.12 (104.33 kg, 167.64 cm)kk309/2822:31 Pain Scale: Hsqonbi7ES Course:03/2822:27 Patient arrived in ED.kk322:27 NONE, - Per Patient is Private Physician.kk322:30 Triage completed.kk322:39 Ratna Barbosa RN is Primary Nurse.kk322:45 Zeeshan Grover MD [...] Nurse role handed off by Fortunato Mark RNXLqo5Bgcbiqjrwtoy Medications:08:37 Drug: sertraline 50 mg [sertraline 50 mg tablet (1 tabs)] Route: PO;sw215:21 Follow up: Response: No adverse yyjgnfqsyp975:37 Drug: Topiramate 75 mg [topiramate 25 mg tablet (3 tabs)] Route: PO;sw215:21 Follow up: Response: No adverse mcihxxgdny387:38 Drug: ARIPiprazole 10 mg [aripiprazole 10 mg tablet (1 tabs)] Route: PO;sw215:22 Follow up: Response: No adverse posemrwram987:38 Drug: Loratadine 10 mg [loratadine 10 mg tablet (1 tabs)] Route: PO;sw215:21 Follow up: Response: No adverse jdshukvhcz618:38 Drug: Montelukast 10 mg Route: PO;sw215:21 Follow up: Response: No adverse pxpcgqgbvy991:38 Drug: Propranolol 10 mg [propranolol 10 mg tablet (1 tabs)] Route: PO;sw215:21 Follow up: Response: No adverse etaksxxirx1Pqxtxuc:12:49 Decision to Hospitalize by Provider.rf215:22 Disposition: Admitted to Psych accompanied by nurse, with chart.ef115:22 Condition: stable, Provider notified of abnormal vital signs.15:22 Discharge instructions given to patient, Instructed on need for admit,Demonstratedunderstanding of instructions.15:22 Discharge Assessment: Patient verbalized understanding of dispositioninstructions.Patient able16:09 Patient left the ED.ev8Rcxfmvztkv:Fortunato Mark, RN RN wm9KtothtquAmi arthur RN RN xl6EmriatjdzAgatha chapa RN RN mp3Zeeshan Grover MD MD brKelly, Krista, RN RN of5IpqvcudjUsha apple8WeOlivia jurado RN RN hr3TjwfcSantiago Rajan MD MD oa4Quufinpoxdp: (The following items were deleted from the chart)01:16 04/08 22:33 Home Meds: Lexapro 10 mg Oral tablet 1 tab nightly; tk5wo504/2905:17 05:14 Patient reports history of anxiety, Bipolar Disorder, Depression,self sm8-mutilation, Other: BPD. Mental Health Admissions: several. pt was last at [facility]04/01/21and discharged 04/03 Current Outpatient Mental Health Services: Psychiatrist /Agency:[facility]. Living Environment: Family / Home Support: poor [facility] The [facility] is [facility]. Detox / Rehab Admissions: None. CurrentOutptAlcohol or Substance Abuse S ervices: None. sm8 Name Value Range Interpretation Code Description Data [facility] Supporting Document(s) ID Date Data Source [id number] 04/08/2021 08:32:[address] [facility] Name Value Range Interpretation Code Description Data [facility] Supporting Document(s) ED Provider Note [facility] LNOTPd9vOdNCLfTk66/TSUpqOWKtc7NhOPriZFy5VGwxLFXyS3MoENV2fR1yRAT4KCtAGpLrTrAzMBP1 [facility] [file] == ID Date Data Source [id number] 04/08/2021 08:24:[address] [facility] Name Value Range Interpretation Code Description Data Stephanie rce(s) Supporting Document(s) Discharge Summary [facility] BCXMNe6oLtGTWlLj36/CCFakHRHer2FxHFzrAXz6VWeiFGFvX1MqFQP3zN3sJMQ1CHfOMtRqCdSeDHB2 lbm [file] AgICAgICAgICAgICAgICAgICAgICAgICAgICAgICAgICAgICAgICAgICAgICAgICAgICAgICAgICAgIC AgICAgICAgICAgICAgICAgICAgICAgICAgICAgDQogICAgICAgICAgICAgICAgICAgICAgICAgICAgIC AgICAgICAgICAgICAgICAgICAgICAgICAgICAgICAg ICAgICAgICAgICAgICAgICAgICAgICAgICAgICAgICAgICAgICAgDQogICAgICAgICAgICAgICAgICAg ICAgICAgICAgICAgICAgICAgICAgICAgICAgICAgICAgICAgICAgICAgICAgICAgICAgICAgICAgICAg ICAgICAgICAgICAgICAgICAgICAgDQogICAgICAgIC AgICAgICAgICAgICAgICAgICAgICAgICAgICAgICAgICAgICAgICAgICAgICAgICAgICAgICAgICAgIC AgICAgICAgICAgICAgICAgICAgICAgICAgICAgICAgDQogICAgICAgICAgICAgICAgICAgICAgICAgIC AgICAgICAgICAgICAgICAgICAgICAgICAgICAgICAg ICAgICAgICAgICAgICAgICAgICAgICAgICAgICAgICAgICAgICAgICAgDQogICAgICAgICAgICAgICAg ICAgICAgICAgICAgICAgICAgICAgICAgICAgICAgICAgICAgICAgICAgICAgICAgICAgICAgICAgICAg ICAgICAgICAgICAgICAgICAgICAgICAgDQogICAgIC AgICAgICAgICAgICAgICAgICAgICAgICAgICAgICAgICAgICAgICAgICAgICAgICAgICAgICAgICAgIC AgICAgICAgICAgICAgICAgICAgICAgICAgICAgICAgICAgDQogICAgICAgICAgICAgICAgICAgICAgIC AgICAgICAgICAgICAgICAgICAgICAgICAgICAgICAg ICAgICAgICAgICAgICAgICAgICAgICAgICAgICAgICAgICAgICAgICAgICAgDQogICAgICAgICAgICAg ICAgICAgICAgICAgICAgICAgICAgICAgICAgICAgICAgICAgICAgICAgICAgICAgICAgICAgICAgICAg ICAgICAgICAgICAgICAgICAgICAgICAgICAgDQogIC AgICAgICAgICAgICAgICAgICAgICAgICAgICAgICAgICAgICAgICAgICAgICAgICAgICAgICAgICAgIC MkYJDxKCVnOMAyMWNjRUAdZWTmAPScPNRmMRUeIQGlAGZyMOBpMUv4T6hmUICcMMOtYJ3gSCz6Uz6+DQ jLJqTeQNH9iiLpcB3RMA6ru2XwLFhvFGIsh8LvWBn7 YA2KVOTnGTauJG3IKPgjlm0RVYOiCKYsiPUYa4avVsZqNTL7YAWwWefzWA7OATUzT3pfnkWlVRRzUJOG PJdtECNVNJzuDMDSQJGjMDCvQqKlNsYdPQAmMQWqKVNYGBO3BBDzPaSnYCNrJAAmZnTcPWFXZCXxHIYb SwMvUEEfDBViImycWRHXWIV2ENHnWcYuGRUsCJJoIZ 9CRCTeG157qnVxZQKZQt0+QDmkoqQvTlpFVjMyJRNxn5IdCDj4MZ6SZNJaQutrn3CePxSrBRHQJRqjLF 8SVXG3CXElTJTqDk7UIGIxI635zrZhFF1DGu2SNrTdRU8ngr7UKuPkPOXaHkoLZlj8RJfzBM8RqKSmLK eRkYBawEPkA8MvJ9CwsWOftQFcxWWUJZ3nbdMHJR5s J50xDIKQBDJszLC5GjI5TeCpMjKkNJN4DuBgWR9wPGkfUE3DJAO0TDrmHOTaHMIzN7xOUlKmPUKhDBXm aUdsSS4WSnGyC4JyfcHpyFJ8OnCmZDGPJt1+VFawjvMvCsaGRbG0OZUju7FiVVw7SO0XETOfLErcUC0I BNWgjN1cIBppHH1XByO4PBMyIWGAAtUyF03siLUzQW j5J8QxNvWxXRCoUdhdQHVzXAlkMtQxJYBkAxIzRNweIQ2+ID4+NJlxKV7AKGagxkSxWBJwDu8CFGXuVA GgZQ4lGMRmOZSyC6S2qDeyHAFMMzBqM5zqdpwrOS0oDOFiU384wVzckqEeNFVcGJYxNt5FDUWhMHA8VE GccDQwYtBlFTEONArhBV9ZhJMcLPI1mQ4fMXxdVCOm DNNnR4rFRwZhcKcdOF57mFfkfpRwfTWkISd+Bz6CWB0nh3RsXNl1sdVmBCraOVS0GKabXUPaJIPeOJLx XJP6GVT8TONMAwAuXXPrDGIwMRzpVXSeQDVfhw2CGZTxFUM7UQxyKTEcPAFlQIVnVZvgGDHnGWwzXsEn NYPwCORiFF7UHxYdOUQpJJFbRCahRPVjZPSqyu0KJE GsIOMzTYUbLoNgVLOhGLXwEVepELPcSIB7SPGjNETjOXMrGY0RNtLvDJRgJLx5GCFbZKInCEZefe8LOA AgZLKqHhfkKHQiMMTyDYNaSXetUVSfYWSoVBM7SBYuNZGbOX8GElGiZGUyVVZgXJSsHAFjEYUolw6OBQ GnAVBcDzJ6TaCdQPYtNJSjPMsbFCXtJMOhCBi2SPUb HCUaMM8FMuPcEFXpUOR6MmJgOIYyIEVevu2WPEJxINAqCzWwFpPiVDUdLWRfGMfoQVGySVK7CgU0PLPo INJvOC2RIcZtDEAwIZx0OkLrAGXqONTlrf3FJIKeZEBxOTG0KEBkJXMqFJCzSWaaLVAtJKOnJCV1FCBe YUZwSO4FFkFuDAOiYxPhQJXzXFHzGLUlwi4LSTAtTR FlBJG8SbDeEVIsXBSzFUqlKRNhHKA9BxB4JBCyHKPwAA3LPmJaWECdCvo1CPEmIYGgZSKvrv3UPWFlBE PmQnPtKoVqBPHuPWPsDSvjYUGeTADrYkA6MFOzMKUcGT6HNeRkLPLhFsE2BaVtBOOeJJOvpu4QGHDjPD KuLgW0LhDkEWPpOIVqIKbxBKFeYMRoVvWnOQArWUHb RD5YLzSvDJNvAFJ3PkpdADSqKEGowp0QQWYlBTP4PeF0AxQdYWDiONUgDVaiPYFgFTOiPiD9XJByJVSg JO9ERpPcLKPkUHU4HRqgYSLnGAJgfq4EZZGjPFD2GUQ1SDEsWSCoVZIxVBelIKNfOIE1MgB2ORKfLBGu EQ2ANdYuRWLoUKJ4ARAaUKHxVXKhlr6RJUEkKMP2WH n6OXUpPQPaVXIlVMurSTUrGWG5VHCcMAOmXBReVC2JRdOhFEOqYQevJJFgJWMzOZYfaw2PLQLmRRY3Nb I2XlWaCAIcYOZyWTzbGRRmNQK4QhZnQBVzZRMoVI2LRkAyPLVsFPs7LKUaOWYmJDIhgr1LVQWqZZJ7PC C9KiNuBXUtEKTeXWtxLHOjPUN9FpLqRVVvRITqZQ6C JiHwGPYmGVm0ESmuDRShYDIfno0TSDZdYSY6BHWdErVzKAFwZNUhLYwbRNDaUOIsUYxzHSRbUKFvVT8F RtUrIMVqAGAmDUJkNXOdCLKohb3MTTEuTRZ7EWN7OdXoAENcVUXzHMdqSLZpSRXuSfN8KLRnQIPtEY0N FiZjIZLlRXN8KINdWDEjFTSoxm4VXMPgAPK5Sdd8LO VvLQLmVWUgHUibSWIyUGP0GCs2BQZeNBFnXK6VObNrNADcNxT0IYSvALRxYYThyf3XEZAfLJP7UFwqJP VzUOXgGDYyKLjeYQZsQDT4DDmbCVJhUGKnYA3TQrJmCHIlTlKiARCdMRMaUTSwlv7MGKUzMBV6DGf7Rc HsYJFrYNLuEWiiQALyZTpiZdewUEDcFQSiMF5DUaNs LAOkHdO4JKZbCOIgJPQfpf1QRRUaAIV7HSk0SqSoKMGlUWShJYdpGIUjSMjtSNx2GWNhYAHvFX6WGyUx JIOhBnHsZzGbKZJaQDRzdk3JVQBiCVD1Fij7XNOwUDLiWWEnKSepSRSuNSxgGIQ9MFAoIRYmDB7TJiYa KZDmKnZuDqRcSMVzURTfwx8LjNQmzVagtx5HKByDDb 7TkJzzAOA9TRquVr4bzVJ3IOFmFGTGCs5ReuDyDLOnGTBSFEptEWAxLRPgVrW9QvKePMLdBfWpEuv3YG U9SVZ0VWsuRTw9VQphMqP1FLXeTafeEuS3KOUiCXHgNfbqWLQlAFn9SEBdGsObDiY+WO5bSMi+Pg0Kc3 QagiO8xaApVAj8EmW9VE6XGSCOZ5KNCe== ID Date Data Source [id number] 04/08/2021 08:11:[address] [facility] Name Value Range Interpretation Code Description Data Stephanie rce(s) Supporting Document(s) Consultation [facility] OKVRIg2fDlUVJdJq26/ZCSqqJQKxo4ChIXyhHEv1PBmwZUZnN0DmZXR4jW5oTMB3KFtMAmYgXyBaCMT7 lbm [file] scKVwnsZ3/RyOKgi2vMGwiLKopZgaSTLQQPFvT91SvTyHxHyjvRy92EzI9xrLcVrKBvdtC5maGFf/SOCIAL MEDIA ASSISTANT [file] ICAgICAgICAgICAgICAgICAgICAgICAgICAgICAgICAgICAgICAgICAgICAgICAgICAgICAgICAgICAg ICAgICAgICAgICAgICAgICAgDQogICAgICAgICAgIC AgICAgICAgICAgICAgICAgICAgICAgICAgICAgICAgICAgICAgICAgICAgICAgICAgICAgICAgICAgIC AgICAgICAgICAgICAgICAgICAgICAgICAgICAgDQogICAgICAgICAgICAgICAgICAgICAgICAgICAgIC AgICAgICAgICAgICAgICAgICAgICAgICAgICAgICAg ICAgICAgICAgICAgICAgICAgICAgICAgICAgICAgICAgICAgICAgDQogICAgICAgICAgICAgICAgICAg ICAgICAgICAgICAgICAgICAgICAgICAgICAgICAgICAgICAgICAgICAgICAgICAgICAgICAgICAgICAg ICAgICAgICAgICAgICAgICAgICAgDQogICAgICAgIC AgICAgICAgICAgICAgICAgICAgICAgICAgICAgICAgICAgICAgICAgICAgICAgICAgICAgICAgICAgIC AgICAgICAgICAgICAgICAgICAgICAgICAgICAgICAgDQogICAgICAgICAgICAgICAgICAgICAgICAgIC AgICAgICAgICAgICAgICAgICAgICAgICAgICAgICAg ICAgICAgICAgICAgICAgICAgICAgICAgICAgICAgICAgICAgICAgICAgDQogICAgICAgICAgICAgICAg ICAgICAgICAgICAgICAgICAgICAgICAgICAgICAgICAgICAgICAgICAgICAgICAgICAgICAgICAgICAg ICAgICAgICAgICAgICAgICAgICAgICAgDQogICAgIC AgICAgICAgICAgICAgICAgICAgICAgICAgICAgICAgICAgICAgICAgICAgICAgICAgICAgICAgICAgIC AgICAgICAgICAgICAgICAgICAgICAgICAgICAgICAgICAgDQogICAgICAgICAgICAgICAgICAgICAgIC AgICAgICAgICAgICAgICAgICAgICAgICAgICAgICAg ICAgICAgICAgICAgICAgICAgICAgICAgICAgICAgICAgICAgICAgICAgICAgDQogICAgICAgICAgICAg ICAgICAgICAgICAgICAgICAgICAgICAgICAgICAgICAgICAgICAgICAgICAgICAgICAgICAgICAgICAg EMRzYSSzSFCgXVEoIAGmXWKrGJRjLVUjNLXeDUm3M9 lpHGYyAPYbMZ5pCHn7Zn3+MMmFVnTzMUB3wtGmeZ2PHS7yf8PgCYadLHJfr1SiRUz5YI2UOXJhHUlaFF 9LDGllll3CTKQrNMJfqLMZe0tbEzHwRMX3HPHfSlsdZS6WZUTqY8fklxIbUEFdMVURLXzaBZCDZPurDU ZOJFOnPXBiWeFqLsFqASClPLEqLFBHJMV8TYPjLtUu LGWdURGdVpUnBEZZVVJlMOEdTiPfTFBuVYPaShjrUDSNIN4YCsAhG9TdtH72QBKrASm+Ys2MCZ1sr5Nh OSf0OwMwGG9zqp3QZDgRXeFvC1DfvrB3QWS0MRTwHp5GJMKpMEHyfQT0OJIlWKWJRbOaT4ZwbF25QZUV Cj4+WZbqakUkJoiGOkS5HIQcs6NtHXa6SQ4GIDTkXE h9tBVgQ70nc8TcfVXyKqicR1lwzFF4n7OjSJOlOaZQHS4aLL6aASGRZyGtsJR2ShX1ZfWeEiHzXAH7PP ylSA7bCWbjMR3HDRY5OZonHDAaZXYcC7tZFgAuDGTaFOHfdMawWC1KGcRbL0KvlqZmmXK4JvAoGEXQQi 4+IZyxlgKnFeyYWiX2WCKpl4YoYPj3MD1YCMFbMBfj PA2PZKMrtJ6cYVdbPL8ROgP1BAJvUKYDZaWgI35egMBhKKa2K6NvXzFcVLJbEvpcIFLsKWsrCqPlYJHx WyBdDQogID4+ID4+BXknLA3ZMNpzqdMmLSRwIr3IOHXxDMElPE4lGPHpXKEfT3O8cJvrLQYBZxLjE7cg vwmmSG3cVSUwY752cWzoxaLnHBOjOIRmNm9TUQSqAZ S1WZObfAPdNtFhTDTSWLxwFV3BkPZvKJH4iD7yIShsSJWsHULgL3gVIgUhxCtxMV89iRzeejUsoCPdNC o+Tn4VYM1im0GxXWk5avKoDQvqPJQ8URriQBQbIOFcOYYwLWV0KYS7HSGTViVnPBNdFXJnMWnqDMBiCO Bltu4QWMPaCDF1UOOqLSEuPBByLOCqNCylQQUbNUb1 ISN4ISTuDCNkAV6DGiOaWQXqPOSnENzlGXQpVHKxjj2KQGVgBOSdArrfOyWhCBVeMRTpHGwwCDDeWTF6 VMX8JBDnTPNmRS6WGwMzSMNmDPg8QOHvNKYvHCZbjr3MTWPgKMFiTfnhKHTeUHAfGQGfZAwvHJLyIFSk UKi5XJOlGSWhVX1XKhXgSGSdQIYfCYTfLTVtLRJykr 5GZHVsXPWkJRK4DIXwSVQlZOQrOIuxTYYbDRE0XfM8DYMgOPGsJW0QQkFsJPAsTHUvSZApFPFkTKYvyf 6TLBEcVFIkFpCgMgFjQINdKKWeMXadQYSpAQB5XgB9DCChKVNnDC0WRsQnGIMwZDo6SiDsHTXhGQEqxg 2POGHfLVTfRIv7ErTzCSZsDFCsOJzoXZBfFNHtJYx6 QWKgEYRyTZ2CYjGcLHAiQtY3EmIcTRUnKKVmnw3WTWPlAWAoZQU9NeQkWCBxRKFnAMwiSCWyDUM5AyL6 IUHhPUJrOT3WEnJsGCKnJpa9DzGxAGGgBCUrzl0MWGAnKXDcAGlxSZVqMEUgCCNjMKpdKLHgPYDzVTK7 AKQuTDLfZF9BUtFpTMBxOdMnAditUSOcLKWpeu4QTA TsBSBrQtFhWHXfHROcRFKqBWxzVBLeIKP8Jor4DFQpUALeCI7SZaPzLCBiZvm2FNAsNCGgULXebn3RMT PcTODoJWy1MzJdRFMaIAPtECdkFDQcGTN4ZWWeYHAaOEGrYM9WJrGoGXPcNjtvAxImRHJvHVJlkh3CHQ AaTWA5WTQ4YrClGSZdNFHyKRebRBImYHNgHWo9TJSd HLFhET5XXmYcEWRkIBW9RYOoCDAeCUMxrv5RCOSeUIU7JGC4JbQbFKZpJUDkMNtnTMEdDTXyMHS9PTOs HDGfXY8RGwBcNEOqNROgBaGqBLFcSJLuqm8AQSNvOGP2Vpe2MPCgKZNoGCJfZFhrRWCbOHSkQEjuZUHa VYVsRZ5FMlGtDGWpVDOcFKJjSNLbPNUodc4OVELyIA U3FQP2FWOqXCZwYMQhHNtdZBCuRNG7UGL3QROlNYImYX9ZTdUzYCPfKQP5GlznGBFqFEBlqm6KLSTcXY Y0JMLgWMOpONApUQYtFCwjMMXrTYI0CQB3JMLfDSFrOW0PBbLcEJMcNif2LSVkQQVjIAVwyl7NKVQjRV L4PQWdFUAdIMMbZMToKWygLBLsNWgaWCzeERVgWTAb OZ0YQaKwJFQuOfQbTkAqQUMjEUEcar5XRFRnNKQ7IDY7QZSmSKMfTYGyPQfeQEJjHId8VJu4SSScVYJb WB4OBmMzQDQfOxTtCiAiAGDkWIFebw0QZFZnINK8KbD6VxWqCUTmLTShUUacJOJvPXm6SAq5TPRlPZKs HD7QZwMlBMHiFvL4SiQjFSZrFVCrfl1TFURxMKR8Lf l0MMAvNEStRQZhUYhzALTsWGf1KFX0HUDjADSrDW4YFgSoRPAdKTK5CnPrSJXqWCCzgt8ZJENqIKS1FY e1ZvXhXLCaEDHeNEnyDOXqPIp5ODP4ZMUjUBYtVQ8EMoKuQAUvQUH8LAwdYEAyMIYlws6XDVWqREH9Cx JzLTKmSYDdKUTvJBacILAsWDu0RfU0EVDaXMNrEX9S ShEoOJJrDZx0EGbcVSMyIVNuer2ONKIzZWF8Vhi0NTJfZYFmEWMaNBd0alLpaUMhDHv2PH1IU8IoktRd CbRTDd4Tv963IDI9ZOYfYl2MY7fpGg2fIGEuTZVQOk5MGUd6STRaVZN1DUA5AWSqXfSeBprrWGZ1AFe3 MTVlODRmZjE+INo9FTY7NSSvPgl5PjXdHkViYYLmRX n8XTYtVMH3YRQyFJ7hBKXDJk6+ORdroQMruRvaPFKJOmt0KZslPWmhTKUKTb0J ID Date Data Source [id number] 04/07/2021 10:13:[address] [facility] Name Value Range Interpretation Code Description Data Stephanie rce(s) Supporting Document(s) Consultation [facility] VTBGNi8bCdZPGnMp51/ARRufSTWqn9KyQTlwIWk1ARsnVZVjV6NiBIY1dB5iOMA8HDvAOrHzMoXjWSS2 lbm [file] AHQ3IjQ7HPC8OGq3Y5FwZVRdSIIdUdXfDJ3UCu1RVcJ4WOY7eZWhAp9ZNiD6DBbPThQkGV0GRBk= ID Date Data Source [id number] 04/07/2021 08:19:[address] [facility] Name Value Range Interpretation Code Description Data Stephanie e(s) Supporting Document(s) History and Physical [facility] MCXAZs9qVyMBYbPe96/RVHucNAEii7ArCPpaQJa5VCrzYGKbZ1MvDMX9gI4cWBJ1PTlXDgKdTrUwHJA4 lbm ErVowFOrQgAVYaHsgATyOrICgtGarwqXGlOC1EkHN4HEUaJ68xHWSbKPPsJ0QaYGY8XRk+Ug6ASXKhbM EsAL7BQezX4T2og0pJLn0+wP2HRQ/otUFic/m2pL+fryU9gPWSFoZCmGaWxe21bsNbtokxr2qcwtC0IS VT+qRTLstxeB0Uh6HvgTayxT+EUHh810k2KeDK56Zg 3+peRC74XsU//EfeOcy40WELQ2QZxbG2Sx0DZ7A/A/4mI55erV4BqvcezjDKEpduyqaOn2OdElTNViw/ qsEvSodhNpKBdwWodQH+QgW9Ytj8iLKDCMetKbRNHFBJBlDXdAtrlK4MRhlG68ZsV6dWJO3xHGVhXV/7 aK520WWMDHpcrRw5u5p8KXRNywEnjADTOUYWqyFQC/ 2Yw92B+nlj/mJioKhQWH2cfoFq0kTOS5iJHeJiiIgYbPsQmlck6+uvcGu/KeadNDB+cK9kkhqCbrj7li qjx7a16G9PyOf+XHvoZqQPoixWEYa4kU7B6MVPh/5g9PpVEgBeTSnbJ6HQlDf5bS3dkWzuj+LLlp0XQO CUObCbffSh4fl1aVnrYzmgyIbAeKcG5SvQ69OcenK0 t72dNIYsN1ECNe8IN4qAJicXuCnMiB/+T09wFFcerxI/Hk+HV0L6+ZZpwhcCArQyiKdgLesQ2usa4HMW Ym7HC42m7RfPu9ygUKHmgV18PlEz7FwO98i9PrN6KX82AdK7ta9w/qTtacOD80saAToiqkbtjwB/c/L+ Q/es131/qwbzmH7veNF2rizmuFqWZtPxN6kNpq1lAo mvzKA8b+z/lqc5g4bSaErMaLrwnY1NJkqie9LdQnp9DqOSrml8+KiXvTnOdpigBebedy31xHPGNV9Hir Z0ZnX0xvYlfNzrbKK9N18RSDUxfVLOVXEqPL5H9lsVFYEO8+Z7iAJcOPSGDry+QSiS78wfmx4evdyyDN ZzK0hnll1a3j9TsyqmpiWsciE2hdtqStRQyhAyekm1 [file] ICAgICAgICAgICAgICAgICAgICAgICAgICAgICAgICAgICAgICAgICAgICAgICAgICAgICAgICAgICAg ICAgICAgICAgICAgICAgICAgICAgICAgICAgICAgICAgICAgICANCiAgICAgICAgICAgICAgICAgICAg ICAgICAgICAgICAgICAgICAgICAgICAgICAgICAgIC AgICAgICAgICAgICAgICAgICAgICAgICAgICAgICAgICAgICAgICAgICAgICAgICANCiAgICAgICAgIC AgICAgICAgICAgICAgICAgICAgICAgICAgICAgICAgICAgICAgICAgICAgICAgICAgICAgICAgICAgIC AgICAgICAgICAgICAgICAgICAgICAgICAgICAgICAN CiAgICAgICAgICAgICAgICAgICAgICAgICAgICAgICAgICAgICAgICAgICAgICAgICAgICAgICAgICAg ICAgICAgICAgICAgICAgICAgICAgICAgICAgICAgICAgICAgICAgICANCiAgICAgICAgICAgICAgICAg ICAgICAgICAgICAgICAgICAgICAgICAgICAgICAgIC AgICAgICAgICAgICAgICAgICAgICAgICAgICAgICAgICAgICAgICAgICAgICAgICAgICANCiAgICAgIC AgICAgICAgICAgICAgICAgICAgICAgICAgICAgICAgICAgICAgICAgICAgICAgICAgICAgICAgICAgIC AgICAgICAgICAgICAgICAgICAgICAgICAgICAgICAg ICANCiAgICAgICAgICAgICAgICAgICAgICAgICAgICAgICAgICAgICAgICAgICAgICAgICAgICAgICAg ICAgICAgICAgICAgICAgICAgICAgICAgICAgICAgICAgICAgICAgICAgICANCiAgICAgICAgICAgICAg ICAgICAgICAgICAgICAgICAgICAgICAgICAgICAgIC AgICAgICAgICAgICAgICAgICAgICAgICAgICAgICAgICAgICAgICAgICAgICAgICAgICAgICANCiAgIC AgICAgICAgICAgICAgICAgICAgICAgICAgICAgICAgICAgICAgICAgICAgICAgICAgICAgICAgICAgIC AgICAgICAgICAgICAgICAgICAgICAgICAgICAgICAg ICAgICANCiAgICAgICAgICAgICAgICAgICAgICAgICAgICAgICAgICAgICAgICAgICAgICAgICAgICAg ICAgICAgICAgICAgICAgICAgICAgICAgICAgICAgICAgICAgICAgICAgICAgICANCjw/aHEkZ7tccTMb btE5L6mrZz4JWg1ZEJ2lz7SyBGCfBXbigpQdHlcOSh KhIDHgAgfMSqt3WAehSP8IjZHgC3LuV2KeTJisYX3NQBFkPEIzuBEvSNJnEDAqFvP1XFKeFUosDS2AqM GbWSitKUMmQQQgBfHiHQZmOJZbDMNbBCEhXSWVNGEyLZIeBlWbPLYlMASaCHbkNGJJOWX5ULVdFzDkMF ImMVXnPxUdFYYARWC7RNAjZcPmUmSsNAQuVN2TCDVb Y222gnSuDEPCSj5+SAldqzSpRqpOLfPfVUPom5YsPKd7PW7BHADpNokgk7NsDsAaCDFDGSjdRQ6ZMRF0 RPG7MZYgSv0YDSUxN286zgObGQ3UKr6UCcOuLY8hjn8XOgGgUPFfBhdXOyi1LSouXK3TpHMzEHyRSqQn OskwX5oixKQ4a6TyPYBfTsNGBK2lLQ7aGCWHSwBzvF R8BhF8XaKeQgMrBNJ9SlvlVB6sWPfpAS1CYOV8UVxiIONzWEIdJ7eQNvEuSCNjRSKpmRewLX3WNoSyA9 WtinKxiTU4FmAvPEGHJf5+YGwgcsUlUbmRBoP3UZViz1SjADq0PE7JIFUrUSqqYI8IGTZdzI6zNFcnSW 0MGbJ8NERkUVZZLwNfK30jjIAkAJf4W3XkIhAlDCXg RmlsZXMgPDwvTmFtZXMgWyBdDQogID4+ID4+ZVmpPY5EHIighdVhHMCcFr2USLEjBFNkPR8lYVQfEMNk N7V1vRgpCVOMBdHrE5dikzoaEW1vKJAhS515yMbvpdKcMNYzVCXvSv4THNStHBZ6TPFueNTbZnLsHVRL EHreYC2QrCFzEDF5sX1wPSmaNPXsAQFrQ5hMNuQhiB ksCL16tMdtmzWpxQLbKOr+Vw3HAJ5cd1WgLBv1yiWjATgiOPO6PLaxLGKpEICaZZHoCVW0TDG0CGIKSt WrQFDsDRKvRYvwAOBxTUWnzq0BSXGqHQS3QnejOuAlRDYkLYWzBImsSLYuPLn9RQE5ZNVuMZIsGC3SQm PzIFPgUXCiPNlgSNEuBXUawt9TYPGtEUZpTgz6IeVn HIVgDGFcFUicINZrPFF1MPfeSLRbOYNwRA1MAoAcAXBiUPj8CAKmIDAhNBHckm9IMPTyICTcIfxgHLPj SAQzCVEhKIfjSDVeNQUgKpDlKSHuBWNrUH6QQdZfAAQcUZC3OKOzEPLjMHMgth3HCBZaHYYhNRS7FZAb XGYlNWJnRFitCXDoEAG3YpU2FYHyKHCiIN2NCbTgXI EaVPirOtlaOADbBOLbuj7GZLNgWCKdYmA9CSXePCLmUZNhGRfeFUYqSIE9Cen2KRAbOKMzMX8TXjRmDU LvLAe4ZPUeUQLtBZEpam7KZYWmNCNjGdKkDHXiBMDiIIGsPIbmLCXdFWCfMiQlTKZmZXZrEJ7YHoNnTA AiJdM8PIHqTDMiBKQcwe4BWUIxGOTdVOY5JbWiSJBx IFCiOIwxPHVnOLE5QAL6HIIjUVXnUJ2JDkYlWZJhIayjCXTbJDGvFKAxyo8YUMHbIZNzWfJ2WVOvLQVf SEIdFCfrHEFzYTXqOZSqDMAjGGUqWM6OChBlURNjRwL1HENgRIFpXKJiwv0BELYwSCNrWgTkIDLnRVEb TJKbJOumVHXsBJJ9Fuq3GUSgWZUzFH4DQbYyYFJnBf t1AWUmSDStFEAwxa2NSWGjOOM1CGv7XTYoMOFjFRScUGspZFMuJYVaENUvABKtFGFmHT7IGtMyKHVwZK WwAVZnYCVjOUWbux4JPNXvCDS6GxWzRpGjPNDeCIJkXUkmHRSeQTSeREA5WIUcWEQpEX5DIcGgKOVoFA L5JLXjTPXfSHSibl5MYDImVWQ3SvB7DpUcWPVdJANp RMooHOImSVNgXxVmTFTrWHBbLQ1JQsNbKXWtJSS3ImUzDOLjNIDtez1ULQJiGLN3MUh2QiNtNRYzIKRo ZGgoEMWoILH2KWHdZVErKFKgJZ1OKwLtXWHqWDPbJUPxWQAjKWDvnd2QCJStDOD7HkA0TtDlIPPiYCIz PJjoPKUaNZP2OJJfEYFkHMCoRA5PXyHbQVDeCYG1OZ RmYBGrLXJhnc9ZPIRpUHA1ILG1VCUjBKKjXBCnDOhoGKWoDTO3JXAdLZYpRGCrHV4KZbXvCRYeRQh3Bo ApKXWzLWHter2UVFHpXDH4IZz9BVBiGJEzIQJnAAcmUXYnBZL6CMH2BOPzJKAvXG6OXgIkAUGgApS4Mj NcBMTyWMHrmx5XAUTtBTK5YRW3KGIjOZDvBWTvGWid PJGoFGJ3YLKaDDUlFBXcQW9JIcClGGTbKxK7YREoPQXfRALbrp1HHMTcGTB1QPd4BIBiZAHuFCIcCIjb NGOvCHD8VRL9HHOkCSUpUE1VIvNxUAVqNySjYBZvLRJnGTWxzx3RLVHmADW2SWZgMPRaBNIlREGbHQry SPIoZLp5Mdw0KWGzBGWlOI1NKqGkYSTjWlcrTEXiBC QgHIYrmk5CIWSmERM5NaZrQJWdYVAgJHWfEHovYIOcUUs8ABG0TSTwKWPcLE2YSoBiKSXcXhd5JUUnVO ZkNRKgfd4QUREhHIW4LIA9TiJlQHTcSXYgYVvwAMHpYKl5OtVbEVJsLTAaPA5KFhArUEWcUpl4UJBfHX QqTAEefc7WUOQoAFV1NVzhNuEvQNInRSAwGIu2lxSx wEPdARe1MN6TM1MypbLnBmCVSn9Vv246IHE2RLEfQq8EI4hsHe9vTYWzIWFYUw5GHEc6EqEgPKWiFpLx KdVaXSUuBnh7ItbzVLU6GpG2IwC5RNT+OQy2G9U9SqVzMOLeN8Q4KRBbYetxMrV2QwcdUSloOuEyUp4t XSANCj4+OCihxVRxmNhiMLHCSkmnZKmzCZdwCFXANj6O ID Date Data Source [id number] 04/05/2021 08:52:[address] [facility] Hospital Name Value Range Interpretation Code Description Data Stephanie rce(s) Supporting Document(s) [facility] UBTHTm3vJqUXZdWvs5DcKxDiEUQyCT0ovyx4F0J0xTErU6BcrXIfe8qzH6KwL0GwLZJgASOAPA1RiHYa jb2 [file] 9fmJ/JntKDqlkv9FwvRi+4T4obt4C29rD4n+[place]/A6rKr1WhmRcVqWDVuylXV/mIDlZVM8jhzDp89p1p Y/9vze8GDcsAlvdmsQWyQv4ifQP77g7uS89f8e4Ock Undx4EpxPrf4si6u8UxNHykAUrW1Ru6XaeDY8AeC245tbhQ+b0+Dw/fW9N6qE6ln/t54oS59XzcYkPyM fr49ZGbkmAm5fJsx/XboM1SC4oa9P1KG4sV0BaOl35xm95BfLQ9bbq4PjG7J0P/HyyXkzAxLk7bFtRxR BtY3jRlZNei9dCC3UkyglFhdhCubWOP+H4qEy4FD4H f5c6zcBzNo9RlGrzqmaH6UmUEHniUm80IPzSMZySVrTjxJE+I0xcma489a0lHPN8ttH+G7RsnoURik8F nHZTNGj55sVbF9g8yydsyDDmQfQ6t+i70/t3rYFCI/q1ySNUvsC5Y8TxHVDN2t0zR8hfQcu6Kw+maría/O [file] M8s5OEJvHRciOF1dipNbYZMgPsesNb1etMY0JZAzShiYSa1Li9ImchP0glNhLrU8QJU8UyBvIF9F ID Date Data Source [id number] 04/05/2021 08:52:[address] [facility] Name Value Range Interpretation Code Description Data Stephanie rce(s) Supporting Document(s) [facility] PLNYPd7hUfYCAaFjn2NvPkYeLYNrWB4eiuq2L0L8zEAtZ8OkmDUzm9noY7FqT7OiYVAdHSSSRE1LqHZs jb2 [file] /u7//ny44n6Bp6v7rwnlIkh2/X506i+tj8/ JJE7ichJpn+QdqKOfP+moHPrvPVvCfP+xfyg1EEZ1hqUA4J6L0eIlFmPclj21/n2vfJl5ygkGM15c/jK eai+p+wc40A4HeTpE2z9qvtdpmjGa16/Y4KdGkLq/A1wmlyotKPnhPirc8a6moB/9n7pm306s7z2k/u9 r3O/byOW60j/ukpp82TakO0S0BtIP0CkkjlvX9t9zs nfer/1KxzDHxj29GW/K53qv/U76HrQ/mHnnk5lVD6d0qNbuZtDV7D2+cesh8C29eQF2UmYx9/4zl22S6 eQda7say2ngeNxZrTh71dNoM/Of4dbHW9Mm5/GM3uZBrEiraJhpdPMTFu1XV3OZJr/J12fdP+idNbXH2 /Wt3/AxsN9diXV+hRzli0Kt1g47wRs565hCG/8zvri pprDV4VtrM/p+yYiw94Tsw2yzEXzit+hra82eWszDyqu/L1vp51KoFIEyJ/WQKlg00LRB828dq3t625C wz/Bt08mck5Y/kHXSdFOdnyt57/7cUlRHQNA53ICyeuE5Xe0NwO/pS0r6863x85DhT+uT/t+B81yt268 79u8rxESg43/ja7b7/qo+89Dv/N63eO/67Ou++969p [file] bjWu0iYdFuZWYVQ6Edh8IeWPLwITZVKw5+AtQ5RRT8xBWcYgj5TZUsVMeiHXHNMp== ID Date Data Source [id number] 04/05/2021 02:07:[address] [facility] Name Value Range Interpretation Code Description Data Stephanie rce(s) Supporting Document(s) Color of Urine [facility] Clarity of Urine [facility] Specific gravity of Urine by Refractometry automated 1.016 1.003 -1.030 [facility] pH of Urine by Automated test strip 6.0 5.0-8.0 [facility] Protein [Mass/volume] in Urine by Automated test strip Neg [facility] Glucose [Mass/volume] in Urine by Automated test strip Neg [facility] Ketones [Mass/volume] in Urine by Automated test strip Neg [facility] Bilirubin.total [Presence] in Urine by Automated test strip Negative [facility] Hemoglobin [Presence] in Urine by Automated test strip Neg [facility] Leukocyte esterase [Presence] in Urine by Automated test strip Negative A [facility] Nitrite [Presence] in Urine by Automated test strip Negati ve [facility] Leukocytes [#/area] in Urine sediment by Automated count 2 /HPF 0 -5 [facility] Erythrocytes [#/area] in Urine sediment by Automated count 0-3 [facility] Bacteria [#/area] in Urine sediment by Automated count Non e [facility] Epithelial cells.squamous [#/area] in Urine sediment by Auto mated count 4 /HPF None [facility] Mucus [#/area] in Urine sediment by Microscopy low power field None [facility] ID Date Data Source [id number] 04/05/2021 02:27:[address] [facility] Name Value Range Interpretation Code Description Data Stephanie rce(s) Supporting Document(s) Amphetamine [Presence] in Urine by Screen method Negative [facility] Benzodiazepines [Presence] in Urine by Screen [facility] Cannabinoids [Presence] in Urine by Screen method Negative [facility] Benzoylecgonine [Presence] in Urine by Screen method [facility] Methadone [Presence] in Urine by Screen method Negative [facility] Opiates [Presence] in Urine by Screen method Negative [facility] Oxycodone [Presence] in Urine by Screen method Negative [facility] Fentanyl+Norfentanyl [Presence] in Urine by Screen method [facility] Service comment [facility] Results below the indicated cutoff (ng/m L), are reported as"Negative." Note: for medical purposes only; not valid for legalor employment testing. ID Date Data Source [id number] 04/05/2021 01:30:00 AM EDT [facility] Name Value Range Interpretation Code Description Data Stephanie rce(s) Supporting Document(s) SARS-CoV-2 RNA 2019 nCoV Real-Time RT-PCR: NOT DETECTED [facility] This lab was ordered by [facility] and reported by [facility]. ID Date Data Source [id number] 04/05/2021 09:15:[address] [facility] Name Value Range Interpretation Code Description Data Stephanie rce(s) Supporting Document(s) Hemoglobin A1c/Hemoglobin.total in Blood by HPLC 4.7 % 4.0-6.0 [facility] (NOTE)<5.7% Average risk of diabetes (ADA)5.7-6.4% Increased risk of diabetes(ADA)>/= 6.5% Diagnostic for diabetes(ADA) Glucose mean value [Mass/volume] in Blood Estimated fr om glycated hemoglobin 88 mg/dL <126 [facility] ID Date Data Source [id number] 04/05/2021 01:49:[address] [facility] Name Value Range Interpretation Code Description Data Stephanie rce(s) Supporting Document(s) Leukocytes [#/volume] in Blood by Automated count 7.5 10*3/uL 4.5-13 [facility] Erythrocytes [#/volume] in Blood by Automated count 4.28 10*6/uL 4.1- 5.3 [facility] Hemoglobin [Mass/volume] in Blood 12.6 g/dL 11.5-15.5 [facility] Hematocrit [Volume Fraction] of Blood by Automated count 37.6 % 3 6-45 [facility] Erythrocyte mean corpuscular volume [Entitic volume] by Auto mated count 87.8 fL 80-96 [facility] Erythrocyte mean corpuscular hemoglobin [Entitic mass] by Automated count 29.5 pg 27-33 [facility] Erythrocyte mean corpuscular hemoglobin concentration [Mass/volume] by Automated count 33.5 g/dL 32.0-36.0 [facility] distribution width [Ratio] by Automated count 12.9 % 11.5-14.5 [facility] Platelets [#/volume] in Blood by Automated count 245 10*3/uL 150-400 [facility] Differential cell count method - Blood [facility] Neutrophils/100 leukocytes in Blood by Automated count 55 % [facility] Lymphocytes/100 leukocytes in Blood by Automated count 36 % [facility] Monocytes/100 leukocytes in Blood by Automated count 7 % [facility] Eosinophils/100 leukocytes in Blood by Automated count 2 % [facility] Basophils/100 leukocytes in Blood by Automated count 0 % [facility] Neutrophils [#/volume] in Blood by Automated count 4.13 10*3/uL 1.8-7 .0 [facility] Lymphocytes [#/volume] in Blood by Automated count 2.70 10*3/uL 1.2-4 .0 [facility] Monocytes [#/volume] in Blood by Automated count 0.51 10*3/uL 0-0.8 [facility] Eosinophils [#/volume] in Blood by Automated count 0.11 10*3/uL 0-0.5 [facility] Basophils [#/volume] in Blood by Automated count 0.01 10*3/uL 0-0.2 [facility] Nucleated erythrocytes/100 leukocytes [Ratio] in Blood by Automated count 0 /100{WBCs} 0-0 [facility] ID Date Data Source [id number] 04/05/2021 01:58:23 AM [facility] Value Range Interpretation Code Description Data Stephanie rce(s) Supporting Document(s) Prothrombin time (PT) 13.6 s 11.6-14.0 [facility] INR in Platelet poor plasma by Coagulation assay 1.09 [facility] Routine intensity oral anticoagulation I NR is typically 2.0-3.0. Target INR must be clinically individualized. ID Date Data Source [id number] 04/05/2021 02:22:57 AM [facility] Value Range Interpretation Code Description Data Stephanie rce(s) Supporting Document(s) Acetaminophen [Mass/volume] in Serum or Plasma 10.0-30.0 L [facility] ID Date Data Source [id number] 04/05/2021 02:22:57 AM [facility] Value Range Interpretation Code Description Data Stephanie rce(s) Supporting Document(s) Thyrotropin [Units/volume] in Serum or Plasma 2.870 u[IU]/mL 0.270-4. 200 [facility] ID Date Data Source [id number] 04/05/2021 02:22:57 AM [facility] Value Range Interpretation Code Description Data Stephanie rce(s) Supporting Document(s) Albumin [Mass/volume] in Serum or Plasma by Bromocresol green (BCG) dye binding method 4.2 g/dL 3.5-5.2 [facility] Bilirubin.total [Mass/volume] in Serum or Plasma 0.2 mg/dL <1.2 [facility] Calcium [Mass/volume] in Serum or Plasma 8.8 mg/dL 8.6-10.0 [facility] Chloride [Moles/volume] in Serum or Plasma 107 mmol/L 98-107 [facility] Creatinine [Mass/volume] in Serum or Plasma 0.59 mg/dL 0.50-0.90 [facility] Glucose [Mass/volume] in Serum or Plasma 91 mg/dL 70-140 [facility] Alkaline phosphatase [Enzymatic activity/volume] in Serum or Plasma 113 U/L 35-104 H [facility] Potassium [Moles/volume] in Serum or Plasma 4.0 mmol/L 3.4-5.1 [facility] Protein [Mass/volume] in Serum or Plasma 7.3 g/dL 6.4-8.3 [facility] Sodium [Moles/volume] in Serum or Plasma 140 mmol/L 136-145 [facility] Aspartate aminotransferase [Enzymatic activity/volume] in Serum or Plasma 29 U/L <32 [facility] Urea nitrogen [Mass/volume] in Serum or Plasma 13 mg/dL 6-20 [facility] Osmolality of Serum or Plasma by calculation 290 mosm/kg 275-300 [facility] Creatinine/Urea nitrogen [Mass Ratio] in Serum or Plasma 22 [facility] Bicarbonate [Moles/volume] in Serum 23 mmol/L 22-29 [facility] Alanine aminotransferase [Enzymatic activity/volume] in Seru m or Plasma 40 U/L <33 H [facility] Anion gap 3 in Serum or Plasma 10 mmol/L 8-15 [facility] Glomerular filtration rate/1.73 sq M pre dicted among non-blacks [Volume Rate/Area] in Serum or Plasma by Creatinine-based formula (MDRD) >6 0 [facility] Glomerular filtration rate/1.73 sq M pre dicted among blacks [Volume Rate/Area] in Serum or Plasma by Creatinine-based formula (MDRD) >60 [facility] ID Date Data Source [id number] 04/05/2021 02:22:57 AM [facility] Value Range Interpretation Code Description Data Stephanie rce(s) Supporting Document(s) Ethanol [Mass/volume] in Serum or Plasma Negative [facility] ID Date Data Source [id number] 04/05/2021 02:22:57 AM T [facility] Value Range Interpretation Code Description Data Stephanie rce(s) Supporting Document(s) Salicylates [Mass/volume] in Serum or Plasma 3.0-30.0 L [facility] ID Date Data Source [id number] 04/05/2021 08:42:04 AM [facility] Value Range Interpretation Code Description Data Stephanie rce(s) Supporting Document(s) Choriogonadotropin.beta subunit [Moles/volume] in Serum or Plasma <5 [facility] ID Date Data Source [id number] 04/05/2021 08:53:54 AM T [facility] Value Range Interpretation Code Description Data Stephanie rce(s) Supporting Document(s) Cholesterol [Mass/volume] in Serum or Plasma 155 mg/dL <200 [facility] Triglyceride [Mass/volume] in Serum or Plasma 118 mg/dL <150 [facility] Cholesterol in HDL [Mass/volume] in Serum or Plasma 40 mg/dL >50 L [facility] Cholesterol in LDL [Mass/volume] in Serum or Plasma by calcu lation 91 mg/dL <100 [facility] Cholesterol in VLDL [Mass/volume] in Serum or Plasma by calc ulation 24 mg/dl 16-42 [facility] Cholesterol non HDL [Mass/volume] in Serum or Plasma 115 mg/dL <130 [facility] ID Date Data Source [id number] 04/05/2021 02:51:[address] [facility] Service Cmnt XXX-Imp : NoneRespiratory P CR Panel : PCR ResultsMicroorganism XXX Cult : See Labs Tab for 2019 nCoV RT-PCR resultsHAdV DNA QI CORDELL+non-probe : Not DetectedHCoV [id number] Nph QI CORDELL+non-probe : Not DetectedHCoV SAC5PMW Nph QI CORDELL+non-probe : Not [id number] RNA Nph QI CORDELL+non-probe : Not [id number] RNA Upper resp QI CORDELL+probe : Not [...] DNA Nph Q CORDELL+non-probe : Not DetectedB ovdidUX718 DNA Nph CORDELL+non-probe : Not Detected Name Value Range Interpretation Code Description Data Stephanie rce(s) Supporting Document(s) ID Date Data Source [id number] 04/05/2021 02:50:[address] 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 50 mg [diphenhydramine 50 mg/mL injection solution(1 mL)] Route: tp2IM; Site: right deltoid;00:30 Follow up: Response: No adverse ljjxaqqyrw721:22 Drug: LORazepam 2 mg [lorazepam 2 mg/mL injection solution (1 mL)] Route:IM; Site: jlright vastus lateralis;10:33 Follow up: Response: Anxiety ohroxijrmrj251:23 Drug: diphenhydrAMINE 50 mg [diphenhydramine 50 mg/mL injection solution(1 mL)] Route: jlIM; Site: right vastus lateralis;10:33 Follow up: Response: Anxiety sjfcetzqsfs766:24 Drug: Geodon 20 mg [ziprasidone 20 mg/mL (final concentration)intramuscular solution jl(1 mL)] Route: IM; Site: right vastus lateralis;10:33 Follow up: Response: Anxiety lmabunqinvm6Bsittikfqx:Dispatcher [employer] Kylie Fishman MD MD seHowland, Todd, MD MD wg7TgftzFortunato humphrey RN RN wr4FeUgmjtBertha Garrison RN RN jlPutBreonna yu RN RN bs6AooiyuxfAmi dang RN ef1 Name Value Range Interpretation Code Description Data Stephanie rce(s) Supporting Document(s) ID Date Data Source [id number] 04/01/2021 06:53:00 PM EDT [facility] Nurse's NotesCl[facility] Tootie terName: Yareli Mejiage: 20 yrsSex: FemaleDOB: 2000MRN: [id number] Date: 03/30/2021Time: 23:26Account#: [id number] 1Polga MD: NONE, - Per PatientDiagnosis: Free text-PTSD, bipolar with depressionPresentation:03/1923:28 Presenting complaint: Patient brought in by [employer] officer [facility]5evaluation due to patient calling reporting suicidal thoughts with [facility]. International Travel Fever No. Coronavirus Screening: Have you beendiagnosedwith COVID-19 in the past 30 days? no Are you currently [facility]?no Flu-like symptoms reported in the last 14 days: no. Have you had closecontact withconfirmed or suspected COVID-19 case? no Do you live in a setting where a largeofamount of people live, such as fpc, family care, fpc, etc? no. Haveyoutraveled to a location with widespread or ongoing COVID-19 community spread [facility]? no Have you traveled internationally or h ad contact with someonethat hastraveled and has been ill in the past 3 weeks? no Have you received the COVIDvaccine?Yes. Communicable Disease Screen: Negative for fever>/= 100 degrees Fahrenheit.Communicable disease screen is negative. (-) rash or unusual skin lesion (-)travel/contact with traveler (-) respiratory symptoms. Communication SpeaksEnglish?Yes, is preferred language.23:28 Acuity: Triage 9wl048:28 Method Of Arrival: Nrqryclk576:30 Acuity Assignment: Triage 1qv3Zlikiz Assessment:23:33 General: Appears in no apparent distress, [...] threats or abuse. Denies injuries from another.Nutritional ez0rsblpqvwu: No deficits noted. Offer of HIV testing: patient was previouslyofferedscreening. Fall Risk None identified.Assessment:23:44 Reassessment: see triage.jw509/2000:54 Reassessment: No changes from previously documented assessment.jw503:24 Reassessment: after PSA informed patient that she would have to wait tillmorning and karla the morning psychiatrist decide if she would [...] 10 mg po to helpwith anxiety MD stricklandui6ljrnqbtv and order received and medication given .05:02 Reassessment: Patient was using a marker to color as a coping strategyand took marker ms0aghiy and cut left forearm with part of [...] try to push way throughER door several ze7mvhnfial made to keep patient turned around, patient [...] and joking with staff in a bright mood.dk2Whlfiqgrighs:03/2002:34 SAFE Act Report Not Completed. Intervention: Observation Level 3. Mentalhealth consult hfis initiated at 01:50. Referral Information: Evaluation referral is generatedby apolice agency: [place] [employer]. The patient was referred for evaluationbecausesuicidal i deation with a plan. Subjective: The patients chief complaint is Ptpresentsto the ED with [place] [employer] due to Pt contacting them stating that she issuicidalwith a plan. Pt reports increased depression and being suicidal with a plan tohangself, overdose or jump off a bridge. Pt reports that she was at [facility] and transferred to [facility] yesterday and discharged. Ptreports lorraine is [...] ago. Pt [facility]att[facility] [place]. Pt reportsthat cecilhas been eating more due [...] overdose 02/2020 Mental HealthAdmissions:multiple, last being at [facility] 03/16/21 Current Outpatient Mental HealthServices:Psychiatrist / Agency: unknown ([facility] in [place]). Therapist /Agency:[facility] [place] Living Environment: The patientcurrently lives in a TLS residence. Patient presents to Emergency Departmentwith thefollowing [...] structure. pills. Homicidal Ideation: Denies.02:56 Narrative This screen writer spoke with Dr. Simon, Dr. Simon recommendskeeping Pt in the ED hfat this time and presenting Pt to the psychiatrist on during the day.Consultation:Psych MD informed of patient's status at 02:56, ED MD notified of patientsstatus at02:56. Disposition: Medically cleared for disposition by Dr Argueta.PsychiatricConsult is performed by phone with Dr Simon. The patient is not a servicemember ormilitary dependent. [place] Suicide Severity Rating Scale: Suicidal IdeationRating 3;Intensity of Ideations Rating 15; Suicidal Behavior Rating 0.07:39 Narrative PSA role handed off to this screen writer at 0730 AM.hf07:53 Narrative PSA role handed off to this screen writer at 0730 AM.em210:49 Narrative Pt is sleeping. Sitter is present. Safety is maintained .em212:43 Narrative Pt is sleeping. Sitter is present. Safety is maintained.em217:17 Legal Status: Patient's legal status will be Emergency: 939. DSM-V DXAxis I dk3uuwofvauy: Other Borderline Personality Disorder [place] II diagnosis: DeferredAxis IIIdiagnosis: None. [place] IV diagnosis: poor coping skills. InsurancePre-Certification:Not Required. [facility] A dmission Criteria: The patient is [...] to 1755 PM. [facility] Security. ED Staff and [...] status will be Emergency: 9.39. Commitmentpapers are sr7aninfjvvx. Pt has been provided a copy of their legal status and rights. DSM- VDX AxisI diagnosis: Bipolar D/O, depressed Post Traumatic Stress Disorder. Transitionof careto Pt will be transported to [facility] with PSA and [facility].Psych:03/1923:37 Subjective: Patient's mood is elevated, Delusions are denied,Hallucinations are denied oy2Ehcgpf thoughts of suicide. Plan for suicide is [...] Response: No adverse reaction; No change in poexrffbepy734:08 Drug: Geodon 20 mg [ziprasidone 20 mg/mL (final concentration)intramuscular solution jw5(1 mL)] Route: IM; Site: left deltoid;07:13 Follow up: Response: No adverse xcaqgjkxwv818/2100:00 Drug: Geodon 20 mg [ziprasidone 20 mg/mL (final concentration)intramuscular solution tp2(1 mL)] Route: IM; Site: left deltoid;00:30 Follow up: Response: No adverse chdpgyaolb526:00 Drug: LORazepam 2 mg [lorazepam 2 mg/mL injection solution (1 mL)] Route:IM; Site: uz6ekujb deltoid;00:30 Follow up: Response: No adverse yeskiwxkhd023:00 Drug: diphenhydrAMINE 50 mg [diphenhydramine 50 mg/mL injection solution(1 mL)] Route: tp2IM; Site: right deltoid;00:30 Follow up: Response: No adverse dscaycbrqm552:22 Drug: LORazepam 2 mg [lorazepam 2 mg/mL injection solution (1 mL)] Route:IM; Site: jlright vastus lateralis;10:33 Follow up: Response: Anxiety cpfzchaqmvw561:23 Drug: diphenhydrAMINE 50 mg [diphenhydramine 50 mg/mL injection solution(1 mL)] Route: jlIM; Site: right vastus lateralis;10:33 Follow up: Response: Anxiety ombjrkwijjm880:24 Drug: Geodon 20 mg [ziprasidone 20 mg/mL (final concentration)intramuscular solution jl(1 mL)] Route: IM; Site: right vastus lateralis;10:33 Follow up: Response: Anxiety uwyiqqlxvrg6Wwnsmkb:18:06 Disposition: Admitted to Rctkhql881:06 Condition: stable, Provider notified of abnormal vital signs.18:06 Discharge instructions given to patient, Instructed on need for admit,Demonstratedunderstanding of instructions.18:06 Discharge Assessment: Patient verbalized understanding of dispositioninstructions.Patient has no functional deficits.18:33 Decision to Hospitalize by Provider.se18:53 Patient left the ED.jlSignatures:Vincenzo Luis RN RN fbgElliott, Suzanne, MD MD seHowland, Todd, MD MD de3PjipxFortunato Mark RN RN ee5EsshgomuAmi arthur RN RN ra6FuNprrsBertha Collier RN RN jlPutney, Taylor RN JOSE LUIS eg5LklkeDanae Ordoñez RN RN ml4Moyer, Elissa em2Fye, Hayley [...] off of the bed bysticking her head pb0eajhmqj the guard rail, very aggressive and tried to hurt staff, called staff"dumbsluts" and told us to "go kill ourselves". MD Notified, placed in 4 pointrestraints.tp2 Name Value Range Interpretation Code Description Data [facility](s) Supporting Document(s) ID Date Data Source [id number] 03/28/2021 12:00:00 AM EDT [facility] Name Value Range Interpretation Code Description Data [facility]s) Sodium 139 mmol/L 136-145 Normal (applies to non-numeric resul ts) [facility] Potassium 3.5-5.1 Below low normal [facility] spital Chloride 105 mmol/L 98-107 Normal (applies to non-numeric resul ts) [facility] Carbon Dioxide CO2 21-32 Normal (applies to non-numer ic results) [facility] Anion Gap 5.0-16.0 Normal (applies to non-numeric resul ts) [facility] BUN 21 mg/dL 7-18 Above high normal [facility] ospital Creatinine,Serum 0.7-1.2 Normal (applies to non-numeric results) [facility] GFR >60 Normal (applies to non-numeric results) [facility] Glucose Level 137 mg/dL 60-99 Above high normal [facility] Reference range is only applicable when patient is fasting Note the following drug interference: Sulfasalazine Sulfapyridine Can see falsely depressed Can see falsely elevated result with up to 17% results with up to 11% decrease in measurement increase in measurement Recommend patients be collected for this test prior to administration of either drug. Calcium 8.5-10.1 Below low normal [facility] spital Bilirubin,Total 0.1-1.9 Normal (applies to non-numeric results) [facility] SGOT(AST) 20 U/L 15-37 Normal (applies to non-numeric resul ts) [facility] Note the following drug interference: Sulfasalazine Sulfapyridine Can see falsely depressed Can see falsely elevated result with up to 10% results with up to 10% decrease in measurement increase in measurement Recommend patients be collected for this test prior to administration of either drug. SGPT(ALT) 48 U/L 12-78 Normal (applies to non-numeric resul ts) [facility] Note the following drug interference: Sulfasalazine Sulfapyridine Can see falsely depressed Can see falsely elevated result with up to 29% results with up to 10% decrease in measurement increase in measurement Recommend patients be collected for this test prior to administration of either drug. Alkaline Phosphatase 114 U/L 38-126 Normal (applies to non-num deena results) [facility] can increase Alkaline Phosp le vels up to 2 times the normal adult value. Normal values for children and adolescents are 2 to 3 times the normal adult value. Total Protein 6.0-8.2 Normal (applies to non-numeric re sults) [facility] Albumin Level 3.4-5.0 Normal (applies to non-numeric re sults) [facility] ID Date Data Source [id number] 03/28/2021 12:00:00 AM EDT [facility] Name Value Range Interpretation Code Description Data Stephanie rce(s) Supporting Document(s) Troponin I 0.000-0.056 Normal (applies to non-numeric resu lts) [facility] ID Date Data Source [id number] 03/28/2021 12:00:00 AM [facility] Name Value Range Interpretation Code Description Data Stephanie rce(s) Supporting Document(s) Magnesium 1.8-2.4 Normal (applies to non-numeric resul ts) [facility] ID Date Data Source [id number] 03/28/2021 12:00:00 AM [facility] Name Value Range Interpretation Code Description Data Stephanie rce(s) Supporting Document(s) Salicylate 2.8-20.0 Below low normal [facility] ID Date Data Source [id number] 03/28/2021 12:00:00 AM [facility] Name Value Range Interpretation Code Description Data Stephanie rce(s) Supporting Document(s) Acetaminophen 10.0-30.0 Below low normal [facility] ID Date Data Source [id number] 03/27/2021 11:58:00 PM [facility] Name Value Range Interpretation Code Description Data Stephanie rce(s) Supporting Document(s) Ethanol Less than 10.0 Normal (applies to non-numeric r esults) [facility] ID Date Data Source [id number] 03/27/2021 11:36:00 PM [facility] Name Value Range Interpretation Code Description Data Stephanie rce(s) Supporting Document(s) White Blood Count 3.5-10.5 Normal (applies to non-numeri c results) [facility] Red Blood Count 3.90-5.00 Normal (applies to non-numeric results) [facility] Hemoglobin 12.0-15.5 Normal (applies to non-numeric resul ts) [facility] Hematocrit 34.9-44.5 Normal (applies to non-numeric resul ts) [facility] Mean Corpuscular Volume 81.2-95.1 Normal (applies to non- numeric results) [facility] Mean Corpuscular Hgb 25.6-32.2 Normal (applies to non-num deena results) [facility] Mean Corpuscular Hgb Conc 32.0-36.0 Normal (applies to no n-numeric results) [facility] Red Cell Distribution Width 11.9-15.5 Normal (appli es to non-numeric results) [facility] Platelet Count 254 x10 3/uL 150-450 Normal (applies to non-numeric results) [facility] Mean Platelet Volume 9.4-12.4 Normal (applies to non-num deena results) [facility] Neutrophils% (Auto) 31.0-71.0 Normal (applies to non-nume frank results) [facility] Lymphocytes% (Auto) 20.0-55.0 Normal (applies to non-nume frank results) [facility] Monocytes% (Auto) 4.0-12.0 Normal (applies to non-numeri c results) [facility] Eosinophils% (Auto) 1.0-8.0 Normal (applies to non-nume frank results) [facility] Basophils% (Auto) 0.0-2.0 Normal (applies to non-numeri c results) [facility] Immature Granulocytes% (Auto) 0.0-2.0 Normal (alexander lies to non-numeric results) [facility] Neutrophils# (Auto) 1.50-6.20 Normal (applies to non-nume frank results) [facility] Lymphocytes# (Auto) 1.20-4.00 Normal (applies to non-nume frank results) [facility] Monocytes# (Auto) 0.00-0.90 Normal (applies to non-numeri c results) [facility] Eosinophils# (Auto) 0.00-0.50 Normal (applies to non-nume frank results) [facility] Basophils# (Auto) 0.00-0.20 Normal (applies to non-numeri c results) [facility] Immature Granulocytes# (Auto) 0.00-7.00 No rmal (applies to non-numeric results) [facility] ID Date Data Source [id number] 03/28/2021 12:21:00 AM EDT [facility] First test? UNKNOWNEmployed in [facility] re? UNKNOWNSymptomatic per CDC? UNKNOWNIf yes date of onset? 03/27/21Hospitalized? UNKNOWNICU? UNKNOWNResident in congregated care? ex fpc, [facility] UNKNOWN? UNKNOWN Name Value Range Interpretation Code Description Data Stephanie rce(s) Supporting Document(s) SARS-CoV-2 RNA Negative Normal (applies to non-numeric r esults) [facility] Negative results should be treated as [...] Certificate of Accreditation. Factsheets for healthcare providers: https://www.fda.gov/media/737242/download Factsheets for patients: https://www.fda.gov/media/755960/download The ID NOW Instrument is a rapid molecular in vitro diagnostic test utilizing an isothermal nucleic acid amplification technology intended for the qualitative detection of nucleic acid from the SARS-CoV-2 viral RNA. THIS IS A STATE REPORTABLE COMMUNICABLE DISEASE. Manual entry verified by Aysha Andrade 03/28/21 0020 ID Date Data Source [id number] 03/28/2021 12:05:00 AM EDT [facility] Name Value Range Interpretation Code Description Data Stephanie rce(s) Supporting Document(s) HCG,Ur Negative Normal (applies to non-numeric results) [facility] ID Date Data Source [id number] 03/27/2021 11:58:00 PM EDT [facility] Name Value Range Interpretation Code Description Data Stephanie rce(s) Supporting Document(s) UDS Benzodiazepines Screen Negative Normal (applies to n on-numeric results) [facility] UDS Cocaine Screen Negative Normal (applies to non-numer ic results) [facility] UDS Ampetamine Screen Negative Normal (applies to non-nu meric results) [facility] UDS Cannabinoids Screen Negative Normal (applies to non- numeric results) [facility] UDS Opiates Screen Negative Normal (applies to non-numer ic results) [facility] UDS Barbiturates Screen Negative Normal (applies to non- numeric results) [facility] Threshold Levels Benzodiazepine 200 ng/mL Cocaine 300 ng/mL Amphetamines 1000 ng/mL Cannabinoids (THC) 50 ng/mL Opiates 300 ng/mL Barbiturates 200 ng/mL All positive findings are presumptive and unconfirmed. Confirmation of positive results are performed only at request of provider. Unconfirmed results must not be used for non-medical purposes (i.e. preemployment and legal purposes) ID Date Data Source [id number] 03/27/2021 11:37:00 PM [facility] Collected By: Nurse Name Value Range Interpretation Code Description Data Stephanie rce(s) Supporting Document(s) Color,Urine Colorl-Dk Y Normal (applies to non-numeric res ults) [facility] Clarity,Urine Clear Normal (applies to non-numeric re sults) [facility] Specific [place],Urine 1.005-1.030 [facility] pH,Urine 5.0-8.0 Normal (applies to non-numeric resul ts) [facility] Protein,Urine Negative Normal (applies to non-numeric re sults) [facility] Glucose,Urine Negative Normal (applies to non-numeric re sults) [facility] Ketones,Urine Negative Normal (applies to non-numeric re sults) [facility] Blood,Urine Negative Normal (applies to non-numeric resu lts) [facility] Bilirubin,Urine Negative Normal (applies to non-numeric results) [facility] Urobilinogen,Urine 0.2-1.0 Normal (applies to non-numer ic results) [facility] Leukocyte Esterase,Urine Negative Normal (applies to non -numeric results) [facility] Nitrite,Urine Negative Normal (applies to non-numeric re sults) [facility] ID Date Data Source [id number] 03/27/2021 10:35:00 PM EDT [facility] Name Value Range Interpretation Code Description Data Stephanie rce(s) Supporting Document(s) Respiratory specimen severe acute respir atory syndrome coronavirus 2 (SARS-CoV-2) RNA Negative (qualifier value) [facility] and reported by . ID Date Data Source [id number] 03/25/2021 09:40:00 PM EDT [facility] Name Value Range Interpretation Code Description Data Stephanie rce(s) Supporting Document(s) Respiratory specimen severe acute respir atory syndrome coronavirus 2 (SARS-CoV-2) RNA Negative (qualifier value) [facility] This lab was ordered by [facility] Stella heaton and reported by . ID Date Data Source [id number] 03/25/2021 10:10:00 PM EDT [facility] Collected By: Nurse Initials: cs Time Collected: 2142 Collected By: Nurse Initials: cs Time Collected: 2142 Collected By: Nurse Initials: cs Time Collected: 2142 Name Value Range Interpretation Code Description Data Stephanie rce(s) Supporting Document(s) Color,Urine Colorl-Dk Y Normal (applies to non-numeric res ults) [facility] Clarity,Urine Clear Normal (applies to non-numeric re sults) [facility] Specific [place],Urine 1.005-1.030 [facility] pH,Urine 5.0-8.0 Normal (applies to non-numeric resul ts) [facility] Protein,Urine Negative [facility] Glucose,Urine Negative Normal (applies to non-numeric re sults) [facility] Ketones,Urine Negative Normal (applies to non-numeric re sults) [facility] Blood,Urine Negative Normal (applies to non-numeric resu lts) [facility] Bilirubin,Urine Negative [facility] pital Urobilinogen,Urine 0.2-1.0 Normal (applies to non-numer ic results) [facility] Leukocyte Esterase,Urine Negative Normal (applies to non -numeric results) [facility] Nitrite,Urine Negative Normal (applies to non-numeric re sults) [facility] ID Date Data Source [id number] 03/25/2021 10:10:00 PM [facility] Collected By: Nurse Initials: cs Time Collected: 2142 Collected By: Nurse Initials: cs Time Collected: 2142 Collected By: Nurse Initials: cs Time Collected: 2142 Name Value Range Interpretation Code Description Data Stephanie rce(s) Supporting Document(s) RBC,Urine None Seen [facility] WBC,Urine None Seen [facility] Casts,Urine None Seen Normal (applies to non-numeric resu lts) [facility] Epithelial Cells,Urine None - Few Normal (applies to non-n umeric results) [facility] Squamous Cells,Urine None Seen [facility] Bacteria,Urine None Seen [facility] ID Date Data Source [id number] [facility]: Nurse Initials: cs Time Collected: 2142 Collected By: Nurse Initials: cs Time Collected: 2142 Collected By: Nurse Initials: cs Time Collected: 2142 Name Value Range Interpretation Code Description Data Stephanie rce(s) Supporting Document(s) HCG,Ur Negative Normal (applies to non-numeric results) [facility] This is a Corrected Result --- 03/25/212206 --- Ur HCG previously reported as: Negative ID Date Data Source [id number] 03/25/2021 10:04:00 PM EDT [facility] Name Value Range Interpretation Code Description Data Stephanie rce(s) Supporting Document(s) SARS-CoV-2 RNA Negative Normal (applies to non-numeric r esults) [facility] Negative results should be treated as [...] Certificate of Accreditation. Factsheets for healthcare providers: https://www.fda.gov/media/455171/download Factsheets for patients: https://www.fda.gov/media/432421/download The ID NOW Instrument is a rapid molecular in vitro diagnostic test utilizing an isothermal nucleic acid amplification technology intended for the qualitative detection of nucleic acid from the SARS-CoV-2 viral RNA. THIS IS A STATE REPORTABLE COMMUNICABLE DISEASE. Manual entry verified by Rachel Leslie 03/25/212202 ID Date Data Source [id number] 03/25/2021 10:04:00 PM EDT [facility] Name Value Range Interpretation Code Description Data Stpehanie rce(s) Supporting Document(s) UDS Benzodiazepines Screen Negative Normal (applies to n on-numeric results) [facility] UDS Cocaine Screen Negative Normal (applies to non-numer ic results) [facility] UDS Ampetamine Screen Negative Normal (applies to non-nu meric results) [facility] UDS Cannabinoids Screen Negative Normal (applies to non- numeric results) [facility] UDS Opiates Screen Negative Normal (applies to non-numer ic results) [facility] UDS Barbiturates Screen Negative Normal (applies to non- numeric results) [facility] Threshold Levels Benzodiazepine 200 ng/mL Cocaine 300 ng/mL Amphetamines 1000 ng/mL Cannabinoids (THC) 50 ng/mL Opiates 300 ng/mL Barbiturates 200 ng/mL All positive findings are presumptive and unconfirmed. Confirmation of positive results are performed only at request of provider. Unconfirmed results must not be used for non-medical purposes (i.e. preemployment and legal purposes) ID Date Data Source [id number] 03/25/2021 09:47:00 PM EDT [facility] Name Value Range Interpretation Code Description Data Stephanie rce(s) Supporting Document(s) Ethanol Less than 10.0 Normal (applies to non-numeric r esults) [facility] ID Date Data Source [id number] 03/25/2021 09:17:00 PM [facility] Name Value Range Interpretation Code Description Data Stephanie rce(s) Supporting Document(s) White Blood Count 3.5-10.5 Normal (applies to non-numeri c results) [facility] Red Blood Count 3.90-5.00 Normal (applies to non-numeric results) [facility] Hemoglobin 12.0-15.5 Normal (applies to non-numeric resul ts) [facility] Hematocrit 34.9-44.5 Normal (applies to non-numeric resul ts) [facility] Mean Corpuscular Volume 81.2-95.1 Normal (applies to non- numeric results) [facility] Mean Corpuscular Hgb 25.6-32.2 Normal (applies to non-num deena results) [facility] Mean Corpuscular Hgb Conc 32.0-36.0 Normal (applies to no n-numeric results) [facility] Red Cell Distribution Width 11.9-15.5 Normal (appli es to non-numeric results) [facility] Platelet Count 264 x10 3/uL 150-450 Normal (applies to non-numeric results) [facility] Mean Platelet Volume 9.4-12.4 Normal (applies to non-num deena results) [facility] Neutrophils% (Auto) 31.0-71.0 Normal (applies to non-nume frank results) [facility] Lymphocytes% (Auto) 20.0-55.0 Normal (applies to non-nume frank results) [facility] Monocytes% (Auto) 4.0-12.0 Normal (applies to non-numeri c results) [facility] Eosinophils% (Auto) 1.0-8.0 Normal (applies to non-nume frank results) [facility] Basophils% (Auto) 0.0-2.0 Normal (applies to non-numeri c results) [facility] Immature Granulocytes% (Auto) 0.0-2.0 Normal (alexander lies to non-numeric results) [facility] Neutrophils# (Auto) 1.50-6.20 Normal (applies to non-nume frank results) [facility] Lymphocytes# (Auto) 1.20-4.00 Normal (applies to non-nume frank results) [facility] Monocytes# (Auto) 0.00-0.90 Normal (applies to non-numeri c results) [facility] Eosinophils# (Auto) 0.00-0.50 Normal (applies to non-nume frank results) [facility] Basophils# (Auto) 0.00-0.20 Normal (applies to non-numeri c results) [facility] Immature Granulocytes# (Auto) 0.00-7.00 No rmal (applies to non-numeric results) [facility] ID Date Data Source [id number] 03/25/2021 09:55:00 PM EDT [facility] Name Value Range Interpretation Code Description Data Stephanie rce(s) Supporting Document(s) Sodium 141 mmol/L 136-145 Normal (applies to non-numeric resul ts) [facility] Potassium 3.5-5.1 Normal (applies to non-numeric resul ts) [facility] Chloride 106 mmol/L 98-107 Normal (applies to non-numeric resul ts) [facility] Carbon Dioxide CO2 21-32 Normal (applies to non-numer ic results) [facility] Anion Gap 5.0-16.0 Normal (applies to non-numeric resul ts) [facility] BUN 12 mg/dL 7-18 Normal (applies to non-numeric results) [facility] Creatinine,Serum 0.7-1.2 Normal (applies to non-numeric results) [facility] GFR >60 Normal (applies to non-numeric results) [facility] Glucose Level 96 mg/dL 60-99 Normal (applies to non-numeric re sults) [facility] Reference range is only applicable when patient is fasting Note the following drug interference: Sulfasalazine Sulfapyridine Can see falsely depressed Can see falsely elevated result with up to 17% results with up to 11% decrease in measurement increase in measurement Recommend patients be collected for this test prior to administration of either drug. Calcium 8.5-10.1 Normal (applies to non-numeric resul ts) [facility] Bilirubin,Total 0.1-1.9 Normal (applies to non-numeric results) [facility] SGOT(AST) 27 U/L 15-37 Normal (applies to non-numeric resul ts) [facility] Note the following drug interference: Sulfasalazine Sulfapyridine Can see falsely depressed Can see falsely elevated result with up to 10% results with up to 10% decrease in measurement increase in measurement Recommend patients be collected for this test prior to administration of either drug. SGPT(ALT) 52 U/L 12-78 Normal (applies to non-numeric resul ts) [facility] Note the following drug interference: Sulfasalazine Sulfapyridine Can see falsely depressed Can see falsely elevated result with up to 29% results with up to 10% decrease in measurement increase in measurement Recommend patients be collected for this test prior to administration of either drug. Alkaline Phosphatase 126 U/L 38-126 Normal (applies to non-num deena results) [facility] can increase Alkaline Phosp le vels up to 2 times the normal adult value. Normal values for children and adolescents are 2 to 3 times the normal adult value. Total Protein 6.0-8.2 Normal (applies to non-numeric re sults) [facility] Albumin Level 3.4-5.0 Normal (applies to non-numeric re sults) [facility] ID Date Data Source [id number] 03/25/2021 09:55:00 PM EDT [facility] Name Value Range Interpretation Code Description Data Stephanie rce(s) Supporting Document(s) Troponin I 0.000-0.056 Normal (applies to non-numeric resu lts) [facility] ID Date Data Source [id number] 03/25/2021 09:55:00 PM EDT [facility] Name Value Range Interpretation Code Description Data Stephanie rce(s) Supporting Document(s) Magnesium 1.8-2.4 Normal (applies to non-numeric resul ts) [facility] ID Date Data Source [id number] 03/25/2021 09:55:00 PM EDT [facility] Name Value Range Interpretation Code Description Data Stephanie rce(s) Supporting Document(s) Salicylate 2.8-20.0 Below low normal [facility] ID Date Data Source [id number] 03/25/2021 09:55:00 PM EDT [facility] Name Value Range Interpretation Code Description Data Stephanie rce(s) Supporting Document(s) Acetaminophen 10.0-30.0 Below low normal [facility] ID Date Data Source [id number] 03/25/2021 07:15:[address] [facility] Name Value Range Interpretation Code Description Data Stephanie rce(s) Supporting Document(s) Discharge Summary [facility] YURGAt1eDzDHNbFw27/CTXmsWMQrh3LbDDzrMQn6PJjyUDXlS2VdIWE4mX4wTSY9PZcXKgOdIiApGTA3 lbm [file] wfJY0Q2vlynLAiHMyGPOg++/leadership program intern//xq6MwpiNgCxhvAzETjiEsn/zH9EM6Mrd5CEZ/WOIEjGslPHMFZG6 [file] LYU6sRGuHp1RNvIcNLSATsBvZH0YFBr= ID Date Data Source [id number] 03/24/2021 09:16:00 AM EDT [facility] Exam Number: [id number] Reported By: - SHIVAM OSCAR MD Signed By: SHIVAM OSCAR MD Name Value Range Interpretation Code Description Data Stephanie rce(s) Supporting Document(s) ID Date Data Source [id number] 03/21/2021 04:51:[address] [facility] Name Value Range Interpretation Code Description Data Stephanie rce(s) Supporting Document(s) History and Physical [facility] ZTBCXz5kCgXNOfYs02/HWGdvWRQhj6TaMLrwWPx4YJjaKOBcO8CeIFT6iX5uDMP4PUpPWkTvIbEzJIPm lbm [file] AgICAgICAgICAgICAgICAgICAgICAgICAgICAgICAgICAgICAgICAgICAgICAgICAgICAgICAgICAgIC CoAVStAD6TXLZiXLOeBGRxGCCkKSEkGMMrKJBhEINg ICAgICAgICAgICAgICAgICAgICAgICAgICAgICAgICAgICAgICAgICAgICAgICAgICAgICAgICAgICAg MOOoPPJcBFOaCWVnSYMyQA8SGHKdTYVbOSNwWLJaMECtUIKrSMVeYNRyWAIaFMUuBLPfGLPdZZBuNEPm ICAgICAgICAgICAgICAgICAgICAgICAgICAgICAgIC IbJGByZPEuSFNjLNPtYTEtRCEzSSZeRJYjFN4IMLFkUFSmQIIaADOvZLMjVFKxWAKeDXZhIVBxQGWuJR AgICAgICAgICAgICAgICAgICAgICAgICAgICAgICAgICAgICAgICAgICAgICAgICAgICAgICAgICAgIC BsNOFjBSTiHM6KJNMcNAJsLYUpJWAbROJwTJFvJBZt ICAgICAgICAgICAgICAgICAgICAgICAgICAgICAgICAgICAgICAgICAgICAgICAgICAgICAgICAgICAg KIJkLJCrMEKsLLScWRRjETLvYR8ZBOWwOCAaPHMoSOFaBNSuUVIwCRKjZSEnCTWkETFuDEHkBEDsUKSx ICAgICAgICAgICAgICAgICAgICAgICAgICAgICAgIC JgKJJdVQIpAZGrIQDhVQBaNDQsJJIiFJEcJHIsQV1SJIEjGSUqDSVjPXJuEQKkJUMiFMDfZGNqQJObLG AgICAgICAgICAgICAgICAgICAgICAgICAgICAgICAgICAgICAgICAgICAgICAgICAgICAgICAgICAgIC QaPLOtTBGoQENrZD8LPXQyMFUrMXLeBJOoGOGvKUWn ICAgICAgICAgICAgICAgICAgICAgICAgICAgICAgICAgICAgICAgICAgICAgICAgICAgICAgICAgICAg JAQtSYUmTPClVHMlYVOvKDOwZQKiMP2MMGJxJVAbUSNoMYLoGZXvRHIsRTGmWSTzWAGrXOGfFFEcKXUn ICAgICAgICAgICAgICAgICAgICAgICAgICAgICAgIC ImOYZrAZLzEBDfCYXcARAjHCXnYFEuDLYlZNHsHEGmPB0QPNUaRYGfNFYjGCByOZWvZUExBWQkFYXtCI AgICAgICAgICAgICAgICAgICAgICAgICAgICAgICAgICAgICAgICAgICAgICAgICAgICAgICAgICAgIC AmOICsTHSlRZElYBSjSF9HHN03oYHwy6F7MVVzEY2o dyc/Zl9QJZyglcTkbSXbGT0PXdQcPK9xst1ZKyXxXZ9vtj3MEStRHnSbP7G7oOQoHUApNPMNDnGdF07x UJhhMl23GGfmDJQrLiMoPFl0Ur2GVpWjF1viYECsAzM9YXDaAoE3JNVqBnR3WSOcHzUnPNJmNVXdXFCq IJTLOE3SSlQnX2ThzN15IRCRFg2+DQplbmRvYmoNCj T2ATLfm4QlBIl4SV5VWOItIotrf1IrBerkRZPEXTdqHS1TUWA6ALU3ZRPqDo8YOFAbI107ipUvBH2OQe 9AHaJuZN6pdc9SVqijGDUyBbtDQog8NIwhBK6NjLUdKXaKTxDaUoxwMWAlbXWZCKRxSSEdzPehHZYkDW DnBB9zVU1nRLNeXZVcBuI1BLNFBF5WAPEwTUHknAGz COYnOIAOVY8IJBcuMXM0WOWsodDerUZqWBzpRU2DYCUgeuDyTqVcIKQNFDs+Qj5PAM8gl9CqFAgqVVBe MQ5ydg3XSKmPSgIqX1N8sFShI6B0KYvyQs7OUWNvQASiTuPyGEVUDThvTG9MQS9vmpU7UJ8XjSCxMIMx FUFjsLAaFEz2Y83wuHPtLTnzYP1WEYT+Dillon+Pg0KIC CuALPoSFFoPaNyUTOVQnNlQ6OgD7RVz6PtN3GsBO03yWgcquTdSWzfQA2KSO4xKAPiFVIXRK7KnJJcdC 5hbgHiDwAuEVZYCfFmT89irQFmNJFqXQR0MFKtSz6HBKYtX8AqxcIgdQlzfnUlVGAuFZOVXQ6BZKfcsg OtvBMazSuyNQ26xVvwAK7GOx1ACeIzWS9jiq8AnKZx Nb7ZLQThEU3VMGFyIDCxKKLuSZG3OVVzKqOyZVefSJKfUTSlRKO4ZHSvRQCnEO2LQqDsYNVpLhBmHKft AATeQJWigj3BUOWhXIRxRuI9ZVLwVFRlOFMfLHgpSYBcQRPbYOK5HZYiJSChKB7RPwXzELSuBCKvTDql BLElTXGpaq9TVWAdBPFqZdIaVQZmBMSkQCVzELvpTP FlBFB9MEw1QFXnADGjXO2AFiGkEXDvTGS1RONySVMgTJGrdc4VBPXeUALqEWCyROPyEDGnBTShKFylLR KsXKE9ThL4MUAcKIKtVG4HNmDgASFdRAR1DXOtRJOwNQXggw7ILQHoGZZuAugsHWYsHYMpPLEbQLqwCK BlGLM2UPC8AMGiJFJxXY1XIlFyBYNmZOEmWCIvCKPr JWIian2ECDMoIVHfTtSkFZLxVVBdNPPxFYqcMTBnQRU1AMv8JZKdMRZrFE0NGgGpVNCbLHQ1MHHrDJRn VYTciw5RDUPfHIWzVmDuSNXrYCSvBSKtMBsaRFLtWWI4YSJdWXUtJDLsDN7PSiRqTYJlGRdkEefpCCHi KHYtew4FXTKhGRJhRKl6PBTyIOAzXDJvHJxhEFJkNF I2MVp3RSGyVAPeDG6YNgQqCQUxBAscDakzRUUmNAUjgd2FFGHfYQJeSMg8PSKsOZQyYDErOSfwOWPqOY SlGQduDPOoKDJyWW6KNyKtZJTkSiSzVEVwJMPvFNYvbf2RYJYzFIJgMZBhJNFbDXZtXXWmFYpuFUWxAE PaSqH7ZNBfBKExHY7CTgQiATRvUxR3NMKtTSKrHQPw su8HMPQxSOOwLao2CDLuYHFfDGAdJNkvGLAgFKAyFMv0HVFqFTJaAV9CLhFaQSFiOzQ2NZyvTEHgSBJp dj9SKOBfACVuECRoAkFoQSHwLGZsDEaeVWUcROZ9Emp5XCXlJZFgOZ0JDtMmASZgGjI0NXTnLISuXUZx xb1LCGFwLFVtKxOxDJKwHWIhTRSvJNsdCGHpMPG9Ty v9ESEvLSPdXR2DPwRuCIVsKrY4HEDwZYApRUBjfu4AuJAhbTgzla7ULYlBLu6DhSfhIWH9RPodWz3ybY CkPSCeEGLCDw6IxpPgMMZyVIYJXIwwRCJdDEbcFfrqWDRrDfN0OTDeSROtEZI2ZcH2FrkbTCD2BNUaHq L5CTXmDkOtAVE9KvF3UuT9GjGoVfMzObZ0BGHoCINr NWE+DC4iZYc+Xj4Dg0XmsvX5hlGeYXzoPdN1XI0SEGKRU0EANd== ID Date Data Source [id number] 03/21/2021 04:41:[address] [facility] Name Value Range Interpretation Code Description Data Stephanie e(s) Supporting Document(s) History and Physical [facility] PTBBUj9xAkRSGcRj99/VMGncKVOwh1UdCRccGMy6YLcsWRGhZ7LhZPE3aN4tDPD3IHtWJxGdLwEkDVSp lbm [file] thu5ZT/W47UbuhnuUMO78TNpC/ODV+barrel dedenting machine operator+rWP5krGRT [file] yHxl2nX0aSD+O02SuNBtd5XPSlHvx0Ca+j/X7iU5AvsYl1HZFSgyFATNNMJCJOhVekKzG/YuD061/[place] [file] E+DQogICAgICAgICAgICAgICAgICAgICAgICAgICAgICAgICAgICAgICAgICAgICAgICAgICAgICAgIC AgICAgICAgICAgICAgICAgICAgICAgICAgICAgICAg ICAgICAgICAgICAgDQogICAgICAgICAgICAgICAgICAgICAgICAgICAgICAgICAgICAgICAgICAgICAg ICAgICAgICAgICAgICAgICAgICAgICAgICAgICAgICAgICAgICAgICAgICAgICAgICAgICAgDQogICAg ICAgICAgICAgICAgICAgICAgICAgICAgICAgICAgIC AgICAgICAgICAgICAgICAgICAgICAgICAgICAgICAgICAgICAgICAgICAgICAgICAgICAgICAgICAgIC AgICAgDQogICAgICAgICAgICAgICAgICAgICAgICAgICAgICAgICAgICAgICAgICAgICAgICAgICAgIC AgICAgICAgICAgICAgICAgICAgICAgICAgICAgICAg ICAgICAgICAgICAgICAgDQogICAgICAgICAgICAgICAgICAgICAgICAgICAgICAgICAgICAgICAgICAg ICAgICAgICAgICAgICAgICAgICAgICAgICAgICAgICAgICAgICAgICAgICAgICAgICAgICAgICAgDQog ICAgICAgICAgICAgICAgICAgICAgICAgICAgICAgIC AgICAgICAgICAgICAgICAgICAgICAgICAgICAgICAgICAgICAgICAgICAgICAgICAgICAgICAgICAgIC AgICAgICAgDQogICAgICAgICAgICAgICAgICAgICAgICAgICAgICAgICAgICAgICAgICAgICAgICAgIC AgICAgICAgICAgICAgICAgICAgICAgICAgICAgICAg ICAgICAgICAgICAgICAgICAgDQogICAgICAgICAgICAgICAgICAgICAgICAgICAgICAgICAgICAgICAg ICAgICAgICAgICAgICAgICAgICAgICAgICAgICAgICAgICAgICAgICAgICAgICAgICAgICAgICAgICAg DQogICAgICAgICAgICAgICAgICAgICAgICAgICAgIC AgICAgICAgICAgICAgICAgICAgICAgICAgICAgICAgICAgICAgICAgICAgICAgICAgICAgICAgICAgIC AgICAgICAgICAgDQogICAgICAgICAgICAgICAgICAgICAgICAgICAgICAgICAgICAgICAgICAgICAgIC AgICAgICAgICAgICAgICAgICAgICAgICAgICAgICAg GMIiQXHfRWFeWOSmVCJbJZKzDBZsIZe5A0boWGCrDDJlBH2jDJq9Pk0+KZdGXnGgCRS7sgBzzS2XUR3k j7PgNDszNHZni4EiPGg7YP9YLHDrJLusPC3BTEiteu1GNVMxDJBssWWMr1gsMnMsPOJ8NGNaAyhtYB9G JOKmP3ydhxMiTRMiQXPJFHxbZTYFLTyxYRDRCJBqKD TkPgSuVoXuDTRzFFZmJJKWOCD5CXMmQkJoIPDuGARtVqMtLDIZDYF0UNRaDyJdWBpmMS0Od0VwfJJoJU 0MOk7QBhDlJS3awe8RBAKsQEFqXtpBFaj6TBbuSY1KmSLtkWQ7SLQdQFLMJkPlB3ubl8VtLXNoMRAGMT cgTB6Vt4AejTCqENo+Gj0BBB1ha6GiQRr1WLTgUW7x ld2FJTcVMsUiP4XriPpfBShtFGGyfYDVj3nqzuSUDM6qfLFuTOV0KLipSHSjCpQoNVZiTbzrMTNZJCiA WjWwE7Vit6KiJfL2JKJvEwSyMMbiUXKkQtX6RB09cNheOD3GHHRqBAEwTB21GLRbDPVnFr5DZi3DOeJm OH9wwc2BJaTmTMNlHikICkp4WZghEC7PnRAnZF6Bru 8ugLYhW8MpsIftNTJxNJxcufXkQo1yKXPvGPetDXBjOT4bZ3ajS7hrL6EgBPJIPyPwL4IjS8KoJbFsLA EwZoWjTAWtXRO2CSSMElNsB6AlAQqwYvRjDUKXDR8EKytwEQByF9IIAUmILV6PC2yCV2UEDS5GXUbSZs oARzUYY9ETM0MMB76DRpKmND9+YC0WCv6XSyOpVH2l ou6BKBIfDNNmFylHHto2LDqmQS9JtHNcF2ZbnGIyo4yOWfAdF8NMGCI2GYJpXm5KLIUcPjTlBTTvVEdb EV1jVWYgLRMAwBzkqtX7VN9YYT6nmrCmWK4NZyYxIl9eUv7GCcApQ0ZoA2HvLBQqPZEWXKelAD3QKMes GN1sAZ9Zp4TQdWHxeK5hml2ZGFTfACEtDjpyjg6GTo sxS0A2sUcdHBCeLJAwQMPIZAdqXY2WBMMhYJZ2IHG0OBZnTOFQPyRrJ05pRR6PD5Kpw85cAyL5YNPhIl SmVOhjPA85lJprvlVefNZkbAtkKC4HLd1+DQplbmRvYmoNCnhyZWYNCjAgNTMNCjAwMDAwMDAwMDAgNj P2MlMnWt7XCLAnJRPeIKMuVrZmBVSwFZPyLPurJENc CHM5TkK6FNJmIQFjQL2OKkTxRRLuTNngMFZgQWCfKBQwbg8DJNYaBZHjCKG9ZmTkOKUdXNGdMPvpOIXo CUB5FkC2VLJyFNLjYI8QRaSwPXNuZSR0LUAjNDQgLLWajx3KGBRaPIDbVqn9ISFuCAFvOPCkJZtvMPZq NTC0CYa2CXPsPHVhUJ1FQkIrCCKuWKW5XlquEMEmDT Egzo1AATUdTCHkWJe6ZBVqEAZpBFOxJEkzXJBjJJB2EeF2AFWwEEIbWT6PUmAnAIAqBGI6PaTxYVRkNY Wsqg9YSNYyZYMoYoN9PfAuNIMsCLLkGOzsSXClHAH8TmN7YHJcDPEfQB8JUgAeDFBuAqO7VuHtBENiDT Dcvr1UFTFbYQXnNRY5DYLoAJKwPEZdEEvwOZDyTZM6 RcT4KKYuBBCkLX7RSjEeHCAmWwG6FiKrLQRePHRkgh5ACRHqEKPiHNRtUrYfRCMeSBKvAMahNJSwDZX0 MuK2NXZnJWJxJB8UGgXbFCAqFdN0SoUySSKiQGGzfo4TTRXsEOC2UPJqSULwKESqBKEeDBxiSJFmMKEj AAs0EKLoUVLpBA4UDgLeLTAxYyFrSZDiVQSiCGZanr 0ESOYfDGVlWOKvKYArKUKtVGWbOCedIXZhMLS2HYY9WWSmRQOfQC2DWfYoKHPvNxEyMrHlKMXgXZKlym 2KXRPiMZAoLAZ9ZBKyRTGiPIGaWOqnVGMdWII8CTY4CLZvFXPaUN8NIoJuICHpYhB8ZFBmAPFtYMUuzu 8WCSCaXQVqBfy3UCLgUVElCNMrDAqzYOZzXVA9YHT1 GNLoPKPwOU4FSqWeCVKdEahyVSVzVWZbTDIihz2MLWQgPAGlTBTgCKFrYOCrLJVxLRqyBKCcGAR9WNm3 WIViYVIhZO5VCxFyPUJuAnc6RSDkRMCuYVYioq4SBNNqXXVaRFG9OaElMKWxOKLyVAzbGGGgQQXvWKUf MMYdICAaEO2LTbHtPEWlIQB1ApNjFVNiFCVlyt6BEI UpNID6UZv6RSCoRBWrLITuYMsmLWHbTFB2SCOvPNFqTOFdZN0GYgTmZBTlAJMzZvPnJCWmMQQepi9EAI XcIWS8EbD5JTAzJRRaMRXgHKnpGRDtEAY4VLm7ENAqAEXdQS6AZbTzQZPsSQZ0GZovYCPaMXJctq5GDH PxBZM2Fzq0BIFhDQFeULCqCMvtTUCgBAN5SOt3SBIp UZXoSX0GBtMoSMHlNMwuZPTtEBKySBAogn1NNVRzEFY1OggiBKQwMSQjNTJvWJiaSVCaTTE6GjVnHRKn FEBfYE8PLbXxCYMqSIqzPGFvRSAcUKObyi0RHEWcXDG8XMQ8PWVzQPYpORYbHSq3byGqeMYjMMf6ID3A L1KiikUcMLDTJi2Zu331KHMgUCEkZw0TW7utUz8tRG RaAXRCEk9SAIx3X0ZwOBGuCiMaJKlgAATdKNtlMhr6PwC0GlpuAJznLZQ+TJo0BPB7WvF6MZGzUIObCN EhBHV2YApbTTVeY2I7W4Y0QW1mLGFVBa0+VJkdhFYodWzhDZZABeI8NEJ2HYgbEWZKMn2H ID Date Data Source [id number] 03/20/2021 08:10:00 PM EDT [facility] Name Value Range Interpretation Code Description Data Stephanie rce(s) Supporting Document(s) SARS coronavirus 2 RNA [Presence] in Res piratory specimen by CORDELL with probe detection NEGATIVE [facility] This lab was ordered by [facility] a nd reported by [facility]. ID Date Data Source [id number] 03/19/2021 10:46:[address] [facility] Name Value Range Interpretation Code Description Data Stephanie rce(s) Supporting Document(s) Consults [facility] SZHNFh7tZmPGTcRp65/CYCpoBJYca3QoNQdoCRc7IJshPUKfD8MgRAW9cM9kUNU3SGwOMvReFjEgWMV2 lbm [file] ICAgICAgICAgICAgICAgICAgICAgICAgICAgICAgIC AgICAgICAgICAgICAgICAgICAgICAgICAgICAgICAgICAgICAgICAgICAgICAgICAgICAgDQogICAgIC AgICAgICAgICAgICAgICAgICAgICAgICAgICAgICAgICAgICAgICAgICAgICAgICAgICAgICAgICAgIC AgICAgICAgICAgICAgICAgICAgICAgICAgICAgICAg ICAgDQogICAgICAgICAgICAgICAgICAgICAgICAgICAgICAgICAgICAgICAgICAgICAgICAgICAgICAg ICAgICAgICAgICAgICAgICAgICAgICAgICAgICAgICAgICAgICAgICAgICAgDQogICAgICAgICAgICAg ICAgICAgICAgICAgICAgICAgICAgICAgICAgICAgIC AgICAgICAgICAgICAgICAgICAgICAgICAgICAgICAgICAgICAgICAgICAgICAgICAgICAgICAgDQogIC AgICAgICAgICAgICAgICAgICAgICAgICAgICAgICAgICAgICAgICAgICAgICAgICAgICAgICAgICAgIC AgICAgICAgICAgICAgICAgICAgICAgICAgICAgICAg ICAgICAgDQogICAgICAgICAgICAgICAgICAgICAgICAgICAgICAgICAgICAgICAgICAgICAgICAgICAg ICAgICAgICAgICAgICAgICAgICAgICAgICAgICAgICAgICAgICAgICAgICAgICAgDQogICAgICAgICAg ICAgICAgICAgICAgICAgICAgICAgICAgICAgICAgIC AgICAgICAgICAgICAgICAgICAgICAgICAgICAgICAgICAgICAgICAgICAgICAgICAgICAgICAgICAgDQ ogICAgICAgICAgICAgICAgICAgICAgICAgICAgICAgICAgICAgICAgICAgICAgICAgICAgICAgICAgIC AgICAgICAgICAgICAgICAgICAgICAgICAgICAgICAg ICAgICAgICAgDQogICAgICAgICAgICAgICAgICAgICAgICAgICAgICAgICAgICAgICAgICAgICAgICAg ICAgICAgICAgICAgICAgICAgICAgICAgICAgICAgICAgICAgICAgICAgICAgICAgICAgDQogICAgICAg ICAgICAgICAgICAgICAgICAgICAgICAgICAgICAgIC AgICAgICAgICAgICAgICAgICAgICAgICAgICAgICAgICAgICAgICAgICAgICAgICAgICAgICAgICAgIC AfQYq8N6hbZASjBAAiIJ2oRUs4Kt7+IKtEEzSeZQX4adGtuA3VLH3hy1MpISbuTGTps4SnNTb7DR6SLQ TaUMaqCE0BDTivja6FQLNrROWbuPWXk4jvKsWbVQS4 WCIcDquhMM0IEYTtR7omlxGnMFHmMPFLOV9GYaJjJ3SwfK60VIDAHa7+AKpaptRmTjfHRkF7ROQax2Or XAo4LF8HMVJwOrdnj2NbVVugHRNTNJigVJ5RQXF2AZI5ITSzQs6DSXMtZ605egDuVX7HAq7VOiRwFJ3g kg6SUPhsOGJeTqcMEvu3BDqdNC4LnHXwATlMo66zfL w5rwAddSANWDuqXGMCCNRosR3Yv8DyQPCLFFJWFPU2AYceNi9jLHRuWVWqOnBuXULBOG1SVZPnCISboC EfPGNgOSEUXM8KHLmfLWE9ApqeckIwoHLqEAbpCA7SOYHvetQdJEuwSWGRWOw+Py0ZDT7rc4KuPElsKJ OdKO7mkp1IKTyFEzCiT5V4sFSpG4D9SZocHb2MFWRf RHYoEABsZKJDBWicNN8EXI7edjI0IU1MePEkKMCrIGQkjNRzSNm1W82unXJjCLrkMN6KMRV+Dillon+Pg0K EZQvYUKoDHIsHkCyPASYEjVlA7VyG3IJw7WbX6RdKS41rKwddaFkSRcmYQ2KPQ7kEINwEOSGTG2FrRRd hY4yloWqVnLiMMHVTxFyY74lqZMpXXXgDRE3BXKlPd 1UFOHeF7OlhrQyjHgxiiOuFPIzBZOKHE3EJKewacItgYHeiLvcIN15lFkwJB6HCa5VKnLiFA8bmy9FfN GkVz3SJNPqBB0NQTAvRQHxIZAzFET5NYUjOfCyHQlxTAZtRKTgPTO8ZMXlZBUqJI6DToJqMCGtVEGuYI PpBXBpWZYpww4HUCMxWIWiDuxsMeUuMVLlHASoOTnb DPUiFMTxPNA3HUMwXLLaWE7FYxDhEGXiJIF8OVJlFFHcLULjtj9UGYImTIVsWwB9XASrYOKbQEAjAYyz WPSyGYZfTHHoSLQeNZVoDA7GDaIqOTDoTWSxOXVnPKUfKEHdef8KJZLlUPIqKcB3WLMsYDKnNBItCClw CECzKHI4YaW6PZEnHSVeLI3GYnHtXYRyTYO2EXJuVA XdVLKnnd1AKZTvYGWvFUqyTmUtNWCdMCDdSNffQESnJOU3Rto5TNYyPLRqII9VWuFhRGEkZUH9GCXbJA UkYVEktb8BAWUkYPJlTtR4DRLkAHIsNHRcEPwjLPKoWHU0EQzxRNSpJFTvHA8IYsIiQRJwGUt4DtEsTG KpPKQcok8HVDMuXJVgLZHsYXRzYDBiWZZzUDqnYIRt IUS2VTJ0WHJmUBBdPE9YZeHzLGbzZGHPHjk1OCnkW9r8SZDcRL2EV3Ewa2GkRLvmZDDWCErnGH6hrxTb AGWgEv9AH9hSQei8XgXrIsE4EVr5AZZhWWbyScv8KhF7QZEzCVL8OTSsZP5eRFOxSzQqOkc6YKr2FKG8 M3XbUAt4GWUaUvGrTaO0FIJjCkWwEN0OOg1YYmN5GKE0pXTqLa5YCSE6BQ8NDRHIJ6ZXAv== ID Date Data Source [id number] 03/16/2021 05:01:00 PM EDT [facility] Exam Number: [id number] OF EXAMINATIO N: 03/16/2021 15:29 EDTHISTORY: InjuryTECHNIQUE: [...] rce(s) Supporting Document(s) ID Date Data Source [id number] 03/16/2021 07:16:00 AM EDT [facility] Name Value Range Interpretation Code Description Data Stephanie rce(s) Supporting Document(s) LCOVID-19, CORDELL NEGATIVE [facility] This lab was ordered by [facility] and [facility] ID Date Data Source [id number] 03/16/2021 08:04:00 AM EDT [facility] Name Value Range Interpretation Code Description Data Stephanie rce(s) Supporting Document(s) COVID-19, CORDELL NEGATIVE NEGATIVE [facility] Methodology: Isothermal Nucleic Acid Amp lification [...] Emergency Use Authorization. ID Date Data Source [id number] 03/16/2021 07:54:00 AM EDT [facility] Name Value Range Interpretation Code Description Data [facility] Document(s) ETOH NONE DETECTED [facility] NONE DETECTED ID Date Data Source [id number] 03/16/2021 07:54:00 AM EDT [facility] Name Value Range Interpretation Code Description Data [facility] Supporting Document(s) GLU 98 mg/dL 70-110 [facility] Patients taking Sulfasalazine may have f alsely depressedGlucose levels. Patients taking Sulfapyridine may havefalsely elevated Glucose levels. Patients should be drawnfor Glucose before the initial administration of eitherdrug. BUN 15 mg/dL 7-23 [facility] CRE 0.644 mg/dL 0.500-1.300 [facility] GFR > 60 mL/min [facility] CHLORIDE 109 mmol/L 99-110 [facility] NA 137 mmol/L 136-147 [facility] POTASSIUM 3.7 mmol/L 3.5-5.1 [facility] TCO2 23 mmol/L 20-33 [facility] ANION GAP 8.7 10.0-20.0 L [facility] CA 8.5 mg/dL 8.3-10.7 [facility] ALKALINE PHOS 120 U/L 45-117 [facility] TP 7.2 g/dL 6.0-7.8 [facility] ALB 3.6 g/dL 3.5-5.0 [facility] ESRD Dialysis patient Albumin reference range: 2.9-4.4 g/dL GL 3.6 g/dL 2.3-3.5 [facility] A/G 1.0 1.0-2.5 [facility] T. BILIRUBIN 0.3 mg/dL 0.1-1.1 [facility] [place] Total Bilirubin is n ot recommended forpatients undergoing treatment with eltrombopag (Promacta)due to the potential for falsely elevated results. ALTI 51 U/L 6-54 [facility] Patients taking Sulfasalazine and/or Sul fapyridine may havefalsely depressed ALT levels. Patients should be drawn forALT before the initial administration of either drug. AST 27 U/L 6-38 [facility] Patients taking Sulfasalazine and/or Sul fapyridine may havefalsely depressed AST levels. Patients should be drawn forAST before the initial administration of either drug. ID Date Data Source [id number] 03/16/2021 07:30:00 AM EDT [facility] Name Value Range Interpretation Code Description Data Stephanie rce(s) Supporting Document(s) WBC 9.75 x10E3/uL 4.0-10.5 [facility] RBC 4.13 x10E6/uL 4.20-5.40 [facility] Hemoglobin 12.2 g/dL 12.0-16.0 [facility] Hematocrit 36.4 % 37.0-47.0 [facility] MCV 88.1 fL 81.0-99.0 [facility] MCH 29.5 pg 27.0-31.0 [facility] MCHC 33.5 g/dL 32.7-35.6 [facility] RDW 12.1 % 11.5-14.0 [facility] Platelet count 263 x10E3/uL 150-450 [facility] ital MPV 9.9 fl 6.9-9.5 [facility] Neutrophils 70.3 % 34-64 [facility] Lymphocytes 23.7 % 25-45 [facility] Monocytes 5.2 % 1.7-10.6 [facility] Eosinophils 0.3 % 0.4-7.0 L [facility] Basophils 0.2 % 0.1-2.0 [facility] Imm. Gran. 0.3 % 0.1-2.0 [facility] Abs. Neutro. 6.85 x10E3/uL 1.2-7.6 [facility] Abs. Lymph. 2.31 x10E3/uL 1.0-3.5 [facility] Abs. Stone. 0.51 x10E3/uL 0.1-1.0 [facility] Abs. Eosin. 0.03 x10E3/uL 0.1-0.7 [facility] Abs. Baso. 0.02 x10E3/uL 0.0-0.1 [facility] Abs. Imm. Gran. 0.03 x10E3/uL 0.0-0.1 N [facility] spital ANRBC% 0 % 0 [facility] ID Date Data Source [id number] 03/16/2021 07:54:00 AM EDT [facility] Name Value Range Interpretation Code Description Data Stephanie rce(s) Supporting Document(s) ACETAMINOPHEN < 2.0 ug/mL 0-30 [facility] ID Date Data Source [id number] 03/18/2021 09:43:00 AM EDT [facility] MIXED VIC GROWN NO PATHOGENS ISOLATED Name Value Range Interpretation Code Description Data Stephanie rce(s) Supporting Document(s) ID Date Data Source [id number] 03/16/2021 06:30:00 AM EDT [facility] Name Value Range Interpretation Code Description Data Stephanie rce(s) Supporting Document(s) PCP VISTA NEG NEGATIVE [facility] MINIMUM LEVEL OF DETECTION IS 25 ng/ml BENZODIAZEPINES [facility]G [facility]GATIVE [facility] MINIMUM LEVEL OF DETECTION IS 200 ng/ml COCAINE VISTA NEG NEGATIVE [facility] MINIMUM LEVEL OF DETECTION IS 300 ng/ml AMPHETAMINES NEG NEGATIVE [facility] MINIMUM LEVEL OF DETECTION IS 1000 ng/ml BARBITURATES NEG NEGATIVE [facility] CUTOFF CONCENTRATION IS 200 ng/ml CANNABINOIDS NEG NEGATIVE [facility] CUTOFF CONCENTRATION IS 50 ng/ml METHADONE VISTA [facility] MINIMUM LEVEL OF DETECTION IS 300 ng/ml OPIATE VISTA NEG NEGATIVE [facility] MINIMUM DETECTION LEVEL IS 300 ng/ml ID Date Data Source [id number] 03/16/2021 06:11:00 AM EDT [facility] Name Value Range Interpretation Code Description Data Stephanie rce(s) Supporting Document(s) HCG QUAL URINE Negative Negative [facility] l ID Date Data Source [id number] 03/16/2021 06:11:00 AM EDT [facility] Name Value Range Interpretation Code Description Data Stephanie rce(s) Supporting Document(s) URINE COLOR Yellow [facility] UAPR Cloudy [facility] UGLU Negative NEGATIVE [facility] URINE BILIRUBIN Negative NEGATIVE [facility] UKET Negative NEGATIVE [facility] USG 1.028 1.010-1.025 [facility] UBLO Negative NEGATIVE [facility] UpH 5.0 5.0-8.0 [facility] UPRO 1+ Negative [facility] UUB 1.0 mg/dL 0.2-1.0 [facility] UNIT Negative Negative [facility] ULEU Negative Negative [facility] ID Date Data Source [id number] 03/16/2021 06:11:00 AM EDT [facility] Name Value Range Interpretation Code Description Data Stephanie rce(s) Supporting Document(s) URINE RBC 3-5 RBCs/HPF NONE SEEN [facility] URINE WBC 3-5 WBCs/HPF NONE SEEN [facility] URINE BACTERIA Moderate NONE SEEN [facility] l A URINE CULTURE HAS BEEN ADDED TO THIS S PECIMEN URINE EPI. Moderate NONE SEEN [facility] UMUCUS Moderate NONE SEEN [facility] URINE CRYSTAL MOD. CALCIUM OXALATE NONE SEEN [facility] ID Date Data Source [id number] 03/16/2021 07:30:00 PM EDT [facility] Physician DocumentationClaxton-Naveen Hinkle edical CenterName: Yareli DuvallAge: 20 yrsSex: FemaleDOB: 2000MRN: [id number] Date: 03/16/2021Time: 05:07Account#: [id number] Cindi MD: NONE, - Per PatientED Physician Juan Bowmanposition Summary:03/16/21 17:35Transfer OrderedTransfer Location: Other Acute Care FacilityafReason: CapacityafCondition: StableafProblem: an ongoing problemafSymptoms: are unchangedafAccepting Physician: DR. SOFIA(03/16/21 19:30)kk1Rdgwfkmgo- Major depressive disorder, recurrent, unspecifiedafForms:- Medication Reconciliationaf- Medication Reconciliation Form - 2nd CopyafHPI:03/506:55 This 20 yrs old White Female presents to ER via Police with complaints ofPsych Problem.dk206:55 Patient presents here stating she is upset because she got a call fromher boyfriend he qs6kkze that he was dying and then that he was puking up blood. This apparentlywas a callfrom [place]. No other history provided. Patient denies any [...] for fatigue, fever. Eyes: Negative forphotophobia, vision ze4ygyg. ENT: Negative for difficulty swallowing, difficulty handling [...] of care: After a detaildiscussion of the da6dbttobx's case, care is transferred to Anshul Strauss [...] ECG:.af5:16 Order name: Acetaminophen Level; Complete Time: 08:61ok317/0505:16 Order name: CBC with diff; Complete Time: 08:73vu255/0505:16 Order name: CMP; Complete Time: 08:55me922/0505:16 Order name: COVID-19 PROFILE+LAB; Complete Time: 08:38zf468/0505:16 Order name: ETOH; Complete Time: 08:69eh575/0505:16 Order name: Hrrplgiaz7970505:16 Order name: Salicylate Level; Complete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 ICANCiAgICAgICAgICAgICAgICAgICAgICAgICAgICAgICAgICAgICAgICAgICAgICAgICAgICAgICAg ICAgICAgICAgICAgICAgICAgICAgICAgICAgICAgICAgICAgICAgICAgICANCiAgICAgICAgICAgICAg ICAgICAgICAgICAgICAgICAgICAgICAgICAgICAgIC AgICAgICAgICAgICAgICAgICAgICAgICAgICAgICAgICAgICAgICAgICAgICAgICAgICAgICANCiAgIC AgICAgICAgICAgICAgICAgICAgICAgICAgICAgICAgICAgICAgICAgICAgICAgICAgICAgICAgICAgIC AgICAgICAgICAgICAgICAgICAgICAgICAgICAgICAg ICAgICANCiAgICAgICAgICAgICAgICAgICAgICAgICAgICAgICAgICAgICAgICAgICAgICAgICAgICAg ICAgICAgICAgICAgICAgICAgICAgICAgICAgICAgICAgICAgICAgICAgICAgICANCiAgICAgICAgICAg ICAgICAgICAgICAgICAgICAgICAgICAgICAgICAgIC AgICAgICAgICAgICAgICAgICAgICAgICAgICAgICAgICAgICAgICAgICAgICAgICAgICAgICAgICANCj w/zRMvJ3wirQFaltW0A5hbAh7VPg9DVV3dx7HtYOClMHnehoXsHhmLDvFyWPCwVaiACre0YKcgRZ1EbI BuX8PeO6YcBWpaHD8NYKMkQLSoyXVlDJGbCBHpFuC8 KSSvJQfcAO9YnBJxNQmdIAYfEFAuUP3QHYXaA715czOkHV7WVj3GZpTxHV3ofl8UNwFhBUScIlaRWpr5 HByhVR4PoAMzcIFaOWFvYUWGWmIqC6kjd2DpRwVfXBGQKGggEO5Ew0DccRBqQWn+Cz6RUF3pt6WtCQbo WXHaBI5qqm6GHWxTEbIdL3RkgGyzAK46uuSydnpoAx 57ZTBskLFERZChwpGOXHFoo4JgHIVZMNC5ZBxgBa2dXWZrRYBiHfWsOBCNWW7DFZLfUXTnzSOqNHJiBP UYMZ1HLQumHPU0WihcgoVajTLmGOqgCT5FJRTnwwBdDwExQMPBFCr+Iy2QSO2ow7RaYWcwWlAvPT1inb 8OCLyIGgTiN5P8oOBxX3E7URuoGd2DRRNwFVJyMxMs DPKNPXigVY6XPL9cffH1YB7LlARbFLKpMIOerNLcSXq6Q44teVMnZBrvDG5RNHH+Dillon+Gp7FZBWuPASj KQOhOpXtREVYFvXzM9DvC7RXt9IhV8YmDR98fBzldzVoHOvaNB1BFK5bDODjVYSPSA9OlZUiqM6howSp CZCxYNVWQjTcH81yeHLoXQVqRTDiDGWgOo8OCSAhN6 YpqwMnfCedkyTlVHUyQLEVPF5LGEfnlpGajGWizBuqLK20nKtmQZ5FFu4NEmMbHN0cdu2AtOZhWy1UZN DlTv6EAIOaBAFoEBSkSXN3TRRhQaDiCNsyRPIaTAZuELA2JUCfAJYoJM9LKsDmTKJrSuC3UNJqNVOsTP Wyre2UJJCpCGTwBmG9NGVgMSVaMQQmWQjpBWGlEABd WBG8MHTyAUIfHE0NTdXsNUVoDCA8MrjsNRNpMJPuca0CMXOmIMMuTrH3HsWiPTDmEFNiGEsbJLFlVYM7 USPvARWvWIAhYB6IYuXvPKAvEELtGUDpMSWeJZXzoi2JIRNmJOIkCVObCkPxLADdWGGvGVowPBYuGHV4 Syf5WWOjTCVoMV9BRzEtFTBnKCT4GKOqSWZxNYSoek 7SSPBcPPSfQNo3FTBmBAMqMOMqFUseCBLiSDH5MKL4XYZkLGPfRF3TVsDwBMIhZJj8WnAvJJQuMQFbnx 2EFJLlWIUbAXEaPBBaAQOdAKAvXSbjBMEpOOS2VIz6DWEkQQWkCW4YUsNlMRUmSAafEkKhGAEhXLLils 0CONKfJSBxFEi5ObUmGQNsISSeHHuoKIUoUKQzCKCh VYBoCFFiFI6FNyYgXZEzOyTnZwDiUQDrIPBmqr7XABVqWTCgZAJfCOCiUVCjWZDiYIjtDRVjXEMtOGu5 USRkGOJxGP6GPmStLGZlTuGyCpGwJHSvKHBvmy2PBEBwSZHsXws3AiKpKJHwUDMpLYslWXZoDAWlWOY2 BDRlOGKzPT6KQrQkPQAuQfC0IRmyPSElQXFxbd5CqS XatGxfsa8JHSpUBf3RsNkrUMR6AWgoBp2zpNEzVaBjGLDMCn9MudGpBFNrKLHXHKynPVAyJFA6CvB4YD q4IPLfDWm8AhO3SsUzJPGiYKAfKJy3EuypMrM9TzRqIGg9ZFltCRD8NAf2Yvv1WtWxAJOjHlX0JeJ5B7 M+JX6aYCm+Ay5Sm8RemvR8ibFaZLvjFnLjYc5GYQENM0JIUy== ID Date Data Source [id number] 03/15/2021 12:37:[address] [facility] Name Value Range Interpretation Code Description Data Stephanie rce(s) Supporting Document(s) Care Plan [facility] MIZOXt7pKeFFHzTb64/UWRsrEKVuv6KhBRcaRHy0DKzzUZClX1BmKDE6uS2vQVS0RYhXDyLuTwBkCOB5 lbm [file] ID Date Data Source [id number] 03/15/2021 12:36:[address] [facility] Name Value Range Interpretation Code Description Data Stephanie rce(s) Supporting Document(s) Nursing Note [facility] SZGNFh5oMvNYRrXq99/MBAgbYTRyv8EoIYikWWx2PIesNHCaO0SeYWP7mY3kVRA1NQkQRgJlTmQmUQV1 lbm [file] 54Vuz/dPKdwFM/9wEnOc4B2xIHJ7cFNoq1fbYF6Xps9edbmLGeUk+cU/wYeh80/Y71WlmWyq68sn+ms sql dba gXlBL41FJZKXEQSkhd9fGzsn5OH2pxn93EBEx+gpoKm9vQSlTMOiu/PsTwFPSoriaVlJ+xXP/paVzBMa aUkJbxIGByzoFMmVBDfVhABQGk9cICoOesfsuHVRqC kKOJs4Q1VRFv+Tw+BJ+3Nh0al7AIS5GEVfbHntXN6aRVpgWL7wvHfApBUaPY+/urSII/ezOsC5NofXzi CrzsVQwKenQUAqzq8a7GZUSqy6FBW3qslxCRfmyeMed81IZNkBIznNEvl+dOuMhU1m36e5se9sk6xJwr ScR6ITU/ucJroPRw/ibzmzWR06cDQXoqllPsB7pVB4 l2PQdrno7YoCPLkWrgpkfIqxEdxXHLiFC7lZeCqwS0kIjxKnxGuNPLEAojJoLXeI1YTmAEAHHiAOxEmX cRQ1uGSB2ASaVsGX8UqBFVmmnDHGuNUWOhkh/ljMB8JJW+YBg60hILq7HW2oXJpIvczDfWridv9Ombs8 daKd27OnRPjx3M6Ch7Zfm4vwlbi2Y9O/LtJ5aqUVD1 ijBWEE19i0d9RIb/MvmZDSaAaYhhAoHJOmlME5DxJ9bzQMeLcDeHW5BAavWgVTtOvQMKfA7aenvT9NNf tneY8sDn3ywUx5MMlBYlOGWRwCOi/olvtlj3XBZxqNfXpLAsg05g9N7plobYfitI8Rv7RgpMHu6mV6BM 8m+/txaH81qlBszX5e2+fuJtUBeaKartsl4dqUVEdx +HG98Lv7cwMi7E8mLD1QUnCW1rvjr0kbINsVq8Zr6Q1Q9cR/EPd07UmO2fuNQd1FEsRB/V0Yti6PusN4 V4QRXtg+38e8fltgfAe5+h7vpZECAOfdnkglKhIYHPsOFJvvrGcIm0+XRHfvPplI4b/n8DNeHrBA0l53 8Yni0zm37vuIn79Zn5CnXA12lS7Q9n91I3+laVE3fv [file] Sfewwh5WwNBNak2PJvKKg1qG28ZfT+L17LrjqP3V7mlx1A+f0OttYm6LHr42QTTGRaTa28mm39J5+seafood clerk [file] CoNXW3Jyd9Hu4oLSXXNv1+TYatqFChiNesLTFUHaQ7KEP3VUvwVRTBMc2M ID Date Data Source [id number] 03/14/2021 04:35:[address] [facility] Name Value Range Interpretation Code Description Data Stephanie rce(s) Supporting Document(s) Nursing Note [facility] RCKBVk8gCnQCEsIs07/ZYKlfFDGmr0RsSYayADp4DXsuEJStS0GmQSB0zR6bMWM0QGjDCyHpPoAgDBHx lbm [file] y6PU8CNYU8MXJtBs4HAITbKJ0XPSPhJFZfOKPEOiHn QPCgFsVkPKZySTYLGGfcTTSfS8ZmJQJ6WUQhOb0+ZCiyIB4ZM5ZyMWE1RTt5FG5+OCmhIW8MdBUTF9Jd cBHwAIxxX5QMTU4SLAR1YO9CuFYyLG4EaFTJA5AorRWpCv3uHRQan6GyGv3gX5EWGRSVGUByMFqvKXmm ZCHoVGs9P9J6CDTyR2ACO297dORooDe2Zb7xL8KKCJ rDZjNeTEovPDgvCUIuGMm4Z4E8NPOvN3YVB6JyFxBxifOpR6C+TkInXOOOOA6LQMNLLZt3B4E8dYAsU4 R9cXtVnIZ9EF7DJS8LvRAmwYKcy84+FvTADrUwF1PPX9DQAK8SGUi0D1F5dBLsF4C7nXcPiKY8MU2SHD 1VvDqivZWcTa9uZCjwWDE+Yj6FIw9ANkPkPD1nww7G BfSwPNIfTusETij4P9isacd5jDMpXjL9K0B3JfX0mUEyIH8JD3N8qZRqQYG8LSMssZP+Np6Vh3BjCGRm NCa0O7imSXTtJKUyNgOkpF25B++6bmplxKU0T1t3IQKJwNYvwXqHykFzH7kMFCR6k7T6AHw/Vr3IVUK6 cTg2nRAfKPTjRGi6kC3pmPx3SrFrMN61UQUzZYbgtH 5rAaf6V4Cgw0PnXa8dFt1fqEOjYw3FBrMrSZX0xkCmKtXTMiH4zQrqchfsNHB5T6j5jBR9Hm19c3eafe Mpw3UlEmI4JOetLXMaFyGhplXgARI3tjAilS4tanNhSc3XPIKxZTcbopTkUhIZDc5WRyWoKW11UhggyB 1ldGE+DQogICAgICAgICAgICAgICAgICAgICAgICAg ICAgICAgICAgICAgICAgICAgICAgICAgICAgICAgICAgICAgICAgICAgICAgICAgICAgICAgICAgICAg ICAgICAgICAgICAgICAgDQogICAgICAgICAgICAgICAgICAgICAgICAgICAgICAgICAgICAgICAgICAg ICAgICAgICAgICAgICAgICAgICAgICAgICAgICAgIC AgICAgICAgICAgICAgICAgICAgICAgICAgDQogICAgICAgICAgICAgICAgICAgICAgICAgICAgICAgIC AgICAgICAgICAgICAgICAgICAgICAgICAgICAgICAgICAgICAgICAgICAgICAgICAgICAgICAgICAgIC AgICAgICAgDQogICAgICAgICAgICAgICAgICAgICAg ICAgICAgICAgICAgICAgICAgICAgICAgICAgICAgICAgICAgICAgICAgICAgICAgICAgICAgICAgICAg ICAgICAgICAgICAgICAgICAgDQogICAgICAgICAgICAgICAgICAgICAgICAgICAgICAgICAgICAgICAg ICAgICAgICAgICAgICAgICAgICAgICAgICAgICAgIC AgICAgICAgICAgICAgICAgICAgICAgICAgICAgDQogICAgICAgICAgICAgICAgICAgICAgICAgICAgIC AgICAgICAgICAgICAgICAgICAgICAgICAgICAgICAgICAgICAgICAgICAgICAgICAgICAgICAgICAgIC AgICAgICAgICAgDQogICAgICAgICAgICAgICAgICAg ICAgICAgICAgICAgICAgICAgICAgICAgICAgICAgICAgICAgICAgICAgICAgICAgICAgICAgICAgICAg ICAgICAgICAgICAgICAgICAgICAgDQogICAgICAgICAgICAgICAgICAgICAgICAgICAgICAgICAgICAg ICAgICAgICAgICAgICAgICAgICAgICAgICAgICAgIC AgICAgICAgICAgICAgICAgICAgICAgICAgICAgICAgDQogICAgICAgICAgICAgICAgICAgICAgICAgIC AgICAgICAgICAgICAgICAgICAgICAgICAgICAgICAgICAgICAgICAgICAgICAgICAgICAgICAgICAgIC AgICAgICAgICAgICAgDQogICAgICAgICAgICAgICAg ICAgICAgICAgICAgICAgICAgICAgICAgICAgICAgICAgICAgICAgICAgICAgICAgICAgICAgICAgICAg ALCiPVFkXWWaIDFkBIOtTDImPXNwWTZtSDd8X1mlJOPfSCGrJA4oGBp4Ew7+EEiKVcJsQKE3mcTfhQ0U IX4bk5LtBZdtOHKmq9NvBPt9HY1WPHEwWLsdED0TTR rspf0OWNMhPPXlqCYFs7ifRuLuZLM2XJOyGekyXM2GFZVvR3qqoaThVJHmOVPLDG5WClQhJ0SkbI51ZQ ENCj4+SQjxxeTlPyjUXrMmGOGtr2CaATt1RI1CKUMxRgkqk1CmVmTkOLTGFVqkIC6YARR5PCLnTMTdEk 0WDWZjF320hgDsYP7FGd4AOoGlIG2fno8RKaAiMMKt QzmLPku1NExkHI6MrEFkVLqMdVGgkJ5zVD8dpTFuHiheCAmegsUeVxpglWJmb2epa9kjWRYQZGQ1JOqu Vw0jXHOvVKY1EqB1EESLSY0JZOLvQBYlrNNjVGNdXUIPLL3TYOklOUU1UvoqxtNsqEAbTVmlDQ4TUFJz bnQgMjIgMCBSDQo+Nm8CFJ8rc8SaIPooHYGlKC1ngn 3LTOyVTqViD7S3xGFhY9L2PVycIi5UOGIvNNCgZuXxBXOTIYexHG8NBB3jrcN2HG3RdFDqETBkOZCtoY HaZWm1O91heMGqSLyxWW1EZUR+Dillon+Vk4LVZJxYOBtEQLkOvEsUZMPUiVtJ2GbU6BQj6UkI6GrZS50mS aaicKnXWapOF7AET2aBNJmEODGGY7SiWUsaX1wdwOw SmFpTAGMWcFaA52wtXThRGJlCMKdVRTkVm9AIVWdX9SobhNrfMsxtgVzUXEmZISGVH2PXQjukwHrlDWo hTvxWI03kNidER4OQa4AJcWwIX0que5StWCjVp3NPCLvPZ3TYBUyKOYwBKBwOQA1IVPqWnEnDRjiIUXo HHHkNHR3EMRbCFLfHJ8RQfJkGOKkGRl1AHppOBPkBT Muhs6FNMCnSPXrYYgfJoLkGQGlSQHiNWhhRAFjOKWlTAP6UBDrJOXmXX8VHgOyCSZcDZS0WfMcAWBnAP Danu6XQUSaJJGeIWelMUSfQMLoZPOlHPrfNCQpSKFzQqnsLFPbNOMnOR6OZzAbQVBwRBN2SKAmBJUqUG Brpe4LUAMyBGDsDhJ8QSTtZBNuEAWiTHvcWGHxXRY2 UZE9QQKkXKXvZG6IXsJyIITvEWPzOhCbNAGtNWCtru0HSIJhMJJzZPJbBfNsGMVeUELzQSodRCBbUEU9 AdG3KIXkOKEyZX5EPgXlBAKkGNdiKFFeVJLcGSHrgz6WDQXcHNQgLcH3EIGrGXElDRDlNGceRIVxCRM8 QEEzSIMlUAWrXE7GVkGuGUUxEXx4PtSzJBEdIGJrww 4XHUHkSOOlWHRmUKHtJQZfWFQtQDccJONiPOK8HRCnLOLxKWEtKW6AXhIsMJUhUFp7PzBuIWKbORYfpt 5HBEBzTLFiTWK8AiOpULNtYDSgMHqoGQIjDEBiEPBfBYYxBZBbGF3ZRxBvYKDbQgK9UEQlHZOqEVYaxr 5BIONbNNCoRVO7CWLpSTRiWFBrSKy6ifWoyMBxPGj8 BG7JS2HtvqUrLgWGRd1Ac163FRU4DIAmWh3BP5baOv4uAVVlVNREDw0PGCp8OtD0NsR4EWN1BjteQhx4 YThiZTRiMDMzYTNjYjUwYmI+OSunCnAgINu6EqXgMMGpXhfaWXQhHXDhKbWeK2IaEXShLw6wOHYSYq7+ GMsmvVZenWviAJGEOqYyUyq8TCezWRTXPf9Q ID Date Data Source [id number] 03/14/2021 11:53:[address] [facility] Name Value Range Interpretation Code Description Data Stephanie rce(s) Supporting Document(s) Nursing Note [facility] TXWAUe5eRsZVZnLt36/JQKlxZVXwe2KlZRvdIPw6CSdbVFPpQ0NaKZX6fX9iBBV0LKgSNsUnMqQrTJYm lbm [file] D2PYYsNwC3DaCmKoPpRbVxYiSgFG9FLb8UKjA4TRH1tYAzYv5IUfEcSTaLWeIgXR7FJTq= ID Date Data Source [id number] 03/14/2021 11:44:[address] [facility] Name Value Range Interpretation Code Description Data Stephanie rce(s) Supporting Document(s) Care Plan [facility] JPCUNa0aGzKFUkTv78/AXWdsWBVut3NzQVnyCVe7SXruSMMiW5FrEGL5sS1oNHT2TKmIFiOuTuDcPHRh lbm LrYazDEsPeCHYgGbvYSnYeJDbiZtixeXVkGT9RqRZ6MFEeP84nXWSeYEIyS9MjNWp8KT8+XZzsPQF0pi NtfQ0FGVGaWEfk0gHAxb+w/9IIHsvTLCfcEasA1mXWguwYc7AQfdE9KV1tl9HF/lrGa8Ms84pG7tOQuL PDXdeaAphckyHI5x2qjHNzZFK/8iW7MjnWlXyHVcVf FmLVKxFCCwQzLCwWuFfJ/7wRgqSVQWbeLGvwVJiNKBoSfHCBKNDE0GdNUdGsKpy8tWJpMDrse+4xAxcO vRdcNUm0rBcwiXilSk9l8qJ1jU4DK5tezzTgMVxvbXCeP8ZLQESTHmd7aF3AjbBMlJOgYBryVZGaBS3q 5gYXEoejm8izJ3xP8oJzVYogqli4mWzAA51rnHxfPf dfNAB9ncXyJfB6vnav/PXYcsajeAwrfU7pyT8AGvUhgXG+ztEEkoaW7p242M4CYIJ0fipv03vAC7Rio5 ne0EiFmahUOVlokDtkELu7p3nMuI9GKApiv69p++Mb2RhOx+mPcbrXEGbmDDeaV/rudy++CBpJB8FrNV7 [file] ICAgICAgICAgICAgICAgICAgICAgICAgICAgICAgIC AgICAgICAgICAgICAgICAgICAgICAgICAgICAgICAgICAgICAgICAgICAgICAgICAgICAgICAgICAgDQ ogICAgICAgICAgICAgICAgICAgICAgICAgICAgICAgICAgICAgICAgICAgICAgICAgICAgICAgICAgIC AgICAgICAgICAgICAgICAgICAgICAgICAgICAgICAg ICAgICAgICAgDQogICAgICAgICAgICAgICAgICAgICAgICAgICAgICAgICAgICAgICAgICAgICAgICAg ICAgICAgICAgICAgICAgICAgICAgICAgICAgICAgICAgICAgICAgICAgICAgICAgICAgDQogICAgICAg ICAgICAgICAgICAgICAgICAgICAgICAgICAgICAgIC AgICAgICAgICAgICAgICAgICAgICAgICAgICAgICAgICAgICAgICAgICAgICAgICAgICAgICAgICAgIC AgDQogICAgICAgICAgICAgICAgICAgICAgICAgICAgICAgICAgICAgICAgICAgICAgICAgICAgICAgIC AgICAgICAgICAgICAgICAgICAgICAgICAgICAgICAg ICAgICAgICAgICAgDQogICAgICAgICAgICAgICAgICAgICAgICAgICAgICAgICAgICAgICAgICAgICAg ICAgICAgICAgICAgICAgICAgICAgICAgICAgICAgICAgICAgICAgICAgICAgICAgICAgICAgDQogICAg ICAgICAgICAgICAgICAgICAgICAgICAgICAgICAgIC AgICAgICAgICAgICAgICAgICAgICAgICAgICAgICAgICAgICAgICAgICAgICAgICAgICAgICAgICAgIC AgICAgDQogICAgICAgICAgICAgICAgICAgICAgICAgICAgICAgICAgICAgICAgICAgICAgICAgICAgIC AgICAgICAgICAgICAgICAgICAgICAgICAgICAgICAg ICAgICAgICAgICAgICAgDQogICAgICAgICAgICAgICAgICAgICAgICAgICAgICAgICAgICAgICAgICAg ICAgICAgICAgICAgICAgICAgICAgICAgICAgICAgICAgICAgICAgICAgICAgICAgICAgICAgICAgDQog ICAgICAgICAgICAgICAgICAgICAgICAgICAgICAgIC AgICAgICAgICAgICAgICAgICAgICAgICAgICAgICAgICAgICAgICAgICAgICAgICAgICAgICAgICAgIC IoWJXqIUCyOKl4T8muMUOfUHWoJN2jWEh8Jb7+YPaFKxYmHPL1odOmqF7DDH5kw9OiIHohJZCws6BuGS t4KN3OKFAyZQzzVE9UYDbfdz4PFYMoXYWkwYXTr2dm JpIfHFG8QPDuKklkPA7ZZAMxG9ybsrUzPMUjUAHDUV0JZwHmF9ZvgV35CVWXOj8+DQplbmRvYmoNCjI1 RTCpl5OiZGl5IC7ZYYDvWjcjd9PkZvPyVBHXVVxdLB6BCST6QYU9RKNzHd3DZDEkB557hnEeKB4ZYl8C DkQnAS7poz8VJlIeAPNgYfkBStn5JYavDP6ShVViYY rUHPHhOQAwBJ9qTfloJAgcduFjJazfeZPyt4eew1qkUEYHKUR7ZFikAr1xOLUhUIDpErN8ZWUGAA8QCS TbJFAosFSiRTIjUEUTRB5DEBapNWA6IeadagYefAWfNJtnXD3FKBMqlfUsCxKgRGYEZRi+Kj1OMB4ob0 GfMBlqTeMjTD6wpk0UOKlADdRkB4P2tAUiZ3C6MKgp Pr6RCUDxSYTsOsGlTTQZVWzeVC7UJN9nugF5XI2JiXXaBZGpVXBjvNAnIVr4H90kqWScAIuzAT0LNNA+ Dillon+Nf1UJUBrNNUmVHDnLpLxDBJUTiIiS1UiG4REt2GyM4GjFS49qWcphfIsIXrzIP8NBL7nHFXeMXWX ZS1JvCNmdR6tidYlTASsARQTUvMpB36cdLBlMOEiWI E7ZUGxYu3MMIGyS3ZmbmRriIgmtpWeGKTfXEANMK2ZUTjfgkHcmCJiaBouHG04rSzaZX8VKo3YGgNbTM 8tfb8MiARuVq8DTEOdUM7LJJVkTLBtLHGyBJY4ZLJaAtJcDKyrJKIqZGOyQWS6GXDnMAGaVG0CGpOpWM NdGwWrEyBrGLShOAYtea7EEXTwCYXuDBq3DkJyGOCi SAFpKFraTKDtYQFvVGA2TQYxNITfGD7YTtIfDFLkXCXoOkQwJBTgNXKnnc1VRGYiJSZqUCVkEgArGKWp AHOdPGwjWVHvWMKuGmz9TCIwTAFfCJ2IGoEkNADlNFY0QWPlKVIfQVUrij2KOXIwYLOoZso9OLSkQWBo YJAfPXzfNKXpDIWtBrL2RSUuRHBwPZ4HZaMoBZUuMZ E9KpVmOIPgAKLizt0CRSDwKNJaUKMhKKJtPNOxOZMoUWclZFGlRMR1WYF6ERBaSIRcQJ0VBdKgQOAzVU J2QUSbFMQhXIWkfq4FUBIkQDYdIgg1AdIxMERaEUOuWXkvIUHbSGX0YxRzSMMiLGWcUQ1RPzByELXyCH oxNjjtTXMxCTFhdu2DDHCvPGVnRYBwIKVaFRMxRSAf BIkaSZNbGKZ5UNC4WWJrXFXhFH9VEtQeDRHvJZb4XFIiNLExKYVpgr7NLVJeELBqTTR9QhMiVNWpRIMu XGgmAIXsOUG1AHRpVEMeCMAbVB0XSoOeQNYrZsOeQTMjLLAwSXCimv2TGFAkDOKsRKGxKxItDJHgUCRb QJvcIPNyVORdYHv3BBBfBXXiZV1PJaEzHRYsOgL7KM ObIYFtKAPvtu2PHNDnGPRaZbS1FJMsFFHnTUBoNFc1kcQehUGnGQk2VB7KK0IqflMpDguAKu3Dz166XI N5TUZzMg4GK1jkBc0cYZRxYQFFGl4NMPr4NQI6QOEhZFW4KqE0WzIgZYovOhH6ZnblDlBuOTIqLeS+ID mbVZb4FQK9YRy0RmE6RQExWOG2UkocKOAmNOTuOKYb ZP7mXCESCk9+FPgbxKZgxKtyUBJBTsGgVxB6WIbxMLOLCh0N ID Date Data Source [id number] 03/14/2021 11:35:44 AM EDT [facility] Name Value Range Interpretation Code Description Data Stephanie rce(s) Supporting Document(s) Nursing Note [facility] XHKVEg5jOrBSYxWh82/KGDcqXZIzx2FnZSwsZJw8NGrqCEJiD4VpUMU0xS5uNKH0JQcATtIdLyHtFKTq lbm [file] RIhjXb1DYUGHG2XKTs== ID Date Data Source [id number] 03/14/2021 11:12:00 AM EDT [facility] Exam Number: [id number] Reported By: Maria De Jesus BARAJAS M.D. Signed By: Valeri BARAJAS M.D. Name Value Range Interpretation Code Description Data Stephanie rce(s) Supporting Document(s) ID Date Data Source [id number] 03/14/2021 10:21:[address] [facility] Name Value Range Interpretation Code Description Data Stephanie rce(s) Supporting Document(s) H&P [facility] EBFWDs9pJyPPQvLe66/RVMmuPFIsv7SeNXraZEv3TAxcWPRrR9LjALL7qG5nVOM9VNpDEbFbSiHvEPSk lbm [file] nBVhGu2TVEC1ErPXAmUhBO8LRMx= ID Date Data Source [id number] 03/14/2021 05:34:[address] [facility] Name Value Range Interpretation Code Description Data Stephanie rce(s) Supporting Document(s) Nursing Note [facility] IIYJMe4tOnZTAyQg73/CHOxnOZUqo1GfFJynEBf1IDksWEBmX9OsCJF2gK0nEFI8SVkFMiXySkOiFGTr lbm [file] o= ID Date Data Source [id number] 03/14/2021 01:22:47 AM EDT [facility] Name Value Range Interpretation Code Description Data Stephanie rce(s) Supporting Document(s) Nursing Note [facility] BQPPIm9sIiEGBfLz85/BUJpyINEqe0CkTEtdUHp3OGkhSWEoN3LfYIY6iH7uBGR5PLmIOeVzBzFnIBUm lbm [file] Tt0GCbX9VZW7bPPvAx9CYaNnAgYMHxCyTS8IRPb= ID Date Data Source [id number] 03/13/2021 10:37:[address] [facility] Name Value Range Interpretation Code Description Data Stephanie rce(s) Supporting Document(s) Nursing Note [facility] WTAUGy1zCsCHJxUd08/KFKocNMMpj3ByWYzmUXl0RVlwYOOhU9LgUKC5hK7rBCV3TJhOQfIjCoEfDQXq lbm [file] Gz5UOsI5KER9lYJoLo2JDjVjOMQOVbWfBZ2VUFj= ID Date Data Source [id number] 03/13/2021 07:24:[address] [facility] Name Value Range Interpretation Code Description Data Stephanie rce(s) Supporting Document(s) Care Plan 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 Name Value Range Interpretation Code Description Data Stephanie rce(s) Supporting Document(s) Nursing Note [facility] DQSKZa9yKgEHRzPw66/AVXnxSGTvu3EqKBvkDXs1YFscEIUeY8CsWVJ6nE2vATK6HCqGQyBoQySuRIRw lbm [file] AgICAgICAgICAgICAgICAgICAgICAgICAgICAgICAg ICAgICAgICAgICAgICAgICAgICAgICAgICAgICAgICAgICAgICAgICAgICAgICAgICAgICAgICAgICAg ICAgICAgICANCiAgICAgICAgICAgICAgICAgICAgICAgICAgICAgICAgICAgICAgICAgICAgICAgICAg ICAgICAgICAgICAgICAgICAgICAgICAgICAgICAgIC AgICAgICAgICAgICAgICAgICANCiAgICAgICAgICAgICAgICAgICAgICAgICAgICAgICAgICAgICAgIC AgICAgICAgICAgICAgICAgICAgICAgICAgICAgICAgICAgICAgICAgICAgICAgICAgICAgICAgICAgIC ANCiAgICAgICAgICAgICAgICAgICAgICAgICAgICAg ICAgICAgICAgICAgICAgICAgICAgICAgICAgICAgICAgICAgICAgICAgICAgICAgICAgICAgICAgICAg ICAgICAgICAgICANCiAgICAgICAgICAgICAgICAgICAgICAgICAgICAgICAgICAgICAgICAgICAgICAg ICAgICAgICAgICAgICAgICAgICAgICAgICAgICAgIC AgICAgICAgICAgICAgICAgICAgICANCiAgICAgICAgICAgICAgICAgICAgICAgICAgICAgICAgICAgIC AgICAgICAgICAgICAgICAgICAgICAgICAgICAgICAgICAgICAgICAgICAgICAgICAgICAgICAgICAgIC AgICANCiAgICAgICAgICAgICAgICAgICAgICAgICAg ICAgICAgICAgICAgICAgICAgICAgICAgICAgICAgICAgICAgICAgICAgICAgICAgICAgICAgICAgICAg ICAgICAgICAgICAgICANCiAgICAgICAgICAgICAgICAgICAgICAgICAgICAgICAgICAgICAgICAgICAg ICAgICAgICAgICAgICAgICAgICAgICAgICAgICAgIC AgICAgICAgICAgICAgICAgICAgICAgICANCiAgICAgICAgICAgICAgICAgICAgICAgICAgICAgICAgIC AgICAgICAgICAgICAgICAgICAgICAgICAgICAgICAgICAgICAgICAgICAgICAgICAgICAgICAgICAgIC AgICAgICANCiAgICAgICAgICAgICAgICAgICAgICAg ICAgICAgICAgICAgICAgICAgICAgICAgICAgICAgICAgICAgICAgICAgICAgICAgICAgICAgICAgICAg ICAgICAgICAgICAgICAgICANCjw/pRCwL6wehPGamcS5J2fvUh9GOo8ZAF4wr7FvARJbEAdcsuAaFmhN UqBuQUIvYrsYWeb4PJhmHI8WyTCiN5KwZ6UgPYzkWM 8DDNHgMXTaySRpRNRhGXTsNoQ5DJJiKByrSZ6CyJGqCRbvAEVjDLCmAC3NWUKqR124qoFjVR0VCh2HTe EvAZ0fyi4XEtZoPTJqLvkSSph8LJiwCP1LnJRfkCVuOfWrTGIXYhMtV2ged6DiRtFiVWCRWJrdIL0Hw8 VudCAxDQo+Yz7CWN3dj1NoWMvxEqGsEH3een4UVLfP YcXuK6VyrDalBR13hbYwauldUm64ZUBkwPJNl3LxDmFXB6Q6BL3gOLKEJQG5DBwnPp4gEZKxLZW4ZaW3 WBWBYU6WQKOhCZOurOImKXJxTRWAZX2QGFnpUDY5EtnzycNynHIiJMxfVU2HNGLyfgKoGiLrPRUNOGx+ Dl4OFR6yj6DsMCpsOYShVZ6adj2TMCdUWcSqQ9O9jL HgA6M6TXboHu1AMWPdPHGqLkBuKTZGDLdvAU5YWI3ohxB8WX5VmELjNAUfRDCcqTWyGIi5I34jxEGkWU fjHY6FKHQ+Dillon+Kw5OIXZvUXGlJOKfAwEePHEPIzRsS2TzM0SPi6OvJ3NdIG85jRzlycLpLOcaYQ4ZDY 5aWJJhDSDBAI0VkDZbsQ6qmfUrJjYbKAQHFcKwR87h yFEoTARmQSSiNVDvId3SRFXlW9UhvpUnoGhfyjBfOPHxAYABWM9OLNmuhuWpbFIwdMcxBL72iOkaUQ1N Rc7AYqUrRW0flf2JuWPaLx8CGNTeIO1GZLByLGHiMMCgCSV3HKMnKcJiMCmoLGYjOGBwAEK7AODcWTXt XQ0NKcHbRQGgJJh7ALadEEVqFGBzvu2OYTMiRQSmCS JtCVQzWGHiWFRmFBxbVPKfGUNjHNH8ZFUuMEWbXN6FGuNiAABfQGScOaalVDXhLDTauj6GEJIlZUHqCa OrQaWtIUGvXDCcVHqbRORdLMZsOprjPDHbLBTqOZ0VKoEcELVhITE9RLUuXQCeGRJgko1OLPXkHWIcHh C2NfDfOCJyIQRlLYlcFLIxNOY3DvX1PFIaMQJeGQ3A PwTlQMTlVEG2VcJxRSXjNUIkxm5GAYGuMDKuIOEsLXTkYIFhDDBsKSfsMVBgZBI1RhA2LOWjMGCbMZ2N HmGjKYGnDOl9AWTzYQGrZSEvhg6BLDRjHJNdUxl6XABxJZXcIQUsLFojKHKePMB4QGN0BYZgUXGvPY8Z GtSuXNSiWQafYjMyRWTzWKOfwy4DBDPhRPJeXQAdIo NhXUEtFGIjUStwARAiRWV2QKKsPMKrBCXbVW2OHtKaDIShVZm0KnIsNQQwFWVlrf8WLUAlGSGxAJm1HV PlUZPaTIPvRQvoREVmFWZgDTV7AQXbLRMbVN7EXnPaHKUvHgN7IHUxWLPaBDNllc2JEILwEERwYZU5HU GfAWSxPOPuKWr6hbRysJMeGWm9RX8ID2VkglVpNoQY Yc9Fs757ZWU8LYXgOw9BY6aoIg9kPQPwYPQVQz7IPXf3WojaRWAeY0W5YoOtPMQbDUM5AfJwIkD3QAmq NTNlODk+DZfvUKZ0SnArPSmuN4H1ZqU1TQA4ZXNoXLFmW0R2I5X7VE5mAWLMBc1+DQpzdGFydHhyZWYN EjAhDRz9LFteMFINRp2A ID Date Data Source [id number] 03/13/2021 05:56:[address] 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 Name Value Range Interpretation Code Description Data Stephanie rce(s) Supporting Document(s) Nursing Note [facility] CMOJQm0oIkGWJvTj66/GEYdlQYCab4VkIHwtKRh1BDecVMYyC8DaCZL2mV1tPRG3DEgLLkDvZcEhNLLc lbm [file] DBW7LCL0CdUbSF2ADh5SMoI9WIN5zDPpQi3HBgEpIngILgEeHL9QFHm= ID Date Data Source [id number] 03/13/2021 05:01:[address] [facility] Name Value Range Interpretation Code Description Data Stephanie rce(s) Supporting Document(s) Nursing Note [facility] XDIMQn3nPuGQTzYx56/WHGtsRYWla6KkLUfvBCw7VUivDUUaI3HfBXZ2eL1lOCG3XIiLJvVyEeIcLLIg lbm [file] ZvXH7UJNs= ID Date Data Source [id number] 03/13/2021 02:53:[address] [facility] Name Value Range Interpretation Code Description Data Stephanie rce(s) Supporting Document(s) Nursing Note [facility] HVKADo8hLgIILiYp39/PRQlqFEApw1FsCPitVAb7VWepAITdW0GlJVO6eI4gVQI1TAhJKgFxCbIsLYEn lbm NrLtoIEmMaDRCkQqsNPsTwEMfxVvccgSLfAR9MhHS2TZJsQ44jWBSpCXXlY6FnQBY8RTB+Go3OYCTkcS UfMQ3ACceJ8U7Mgqm9La6ris6Ags+tRVcXVAfu2rkxQ8WnusJZfbn1sH1OEUF3Imk9+Obxn01Fqqzpwe V/ngYxopRNfKAQYNCNfqPRMzCm+e+vYKhfANrM4v/1 b4Eusfk178ocjJ4SVy+H7f4Ug+HLQ2AR4NsQ/2uWxf64gbKTEzCyCZGgvmrAbN8EKP8Qxwh4QpsSLAub E99iutvp56mZR1TeA1lao8PpqQJNjcx5MAWRaR9TQEuf2ndTz3rvvFs2bcGiTs9GN6fS63pdeyb5p4Ju OLnXGF7yP7opeoooS4nfpl5DZcTUYU6wyTh44uRtSC ErEqCxm9jrKKdRrt+YpgMFXzrPJ4uMaBvL+ohyGPCOAIYzyEAW3iUJHKRZeeoPzXLeKXZFf5d9ndb5Hp W67RahrP7wFuDmol82qQ4/7oKttDIpnDrKmwChq7UtsQZXF/TZmZ5atdV0x75UFQX7JwbR8zhjfQDaTU uILuVov5misd2kDQ4El+y3ocS5rFc5Aula5muuk9Zk H1MSlagMSF7x1Sg1lAr7vHgSuizZafC2vLcdj8QcS/P8ejX/+XsUndp//Nec/Dgc/Hpe96M3aTrXw9rX PtiNiPaAoDEGEvnSn3NceD5jN8vLeTq/gY8xd9zcd5kTdd7Wdvwuh4E2gVLfT4RcWTn6RLNR+Umyi3Le fIY8vnHJZibIbJBiMQQ1J9Gp6Q9RwzEoy06KK6+boby [file] ICAgICAgICAgICAgICAgICAgICAgICAgICAgICAgICAgICAgICAgICAgICAgICAgICAgICAgICAgICAg ICAgICAgICAgICAgICAgICAgICANCiAgICAgICAgIC AgICAgICAgICAgICAgICAgICAgICAgICAgICAgICAgICAgICAgICAgICAgICAgICAgICAgICAgICAgIC AgICAgICAgICAgICAgICAgICAgICAgICAgICAgICANCiAgICAgICAgICAgICAgICAgICAgICAgICAgIC AgICAgICAgICAgICAgICAgICAgICAgICAgICAgICAg ICAgICAgICAgICAgICAgICAgICAgICAgICAgICAgICAgICAgICAgICANCiAgICAgICAgICAgICAgICAg ICAgICAgICAgICAgICAgICAgICAgICAgICAgICAgICAgICAgICAgICAgICAgICAgICAgICAgICAgICAg ICAgICAgICAgICAgICAgICAgICAgICANCiAgICAgIC AgICAgICAgICAgICAgICAgICAgICAgICAgICAgICAgICAgICAgICAgICAgICAgICAgICAgICAgICAgIC AgICAgICAgICAgICAgICAgICAgICAgICAgICAgICAgICANCiAgICAgICAgICAgICAgICAgICAgICAgIC AgICAgICAgICAgICAgICAgICAgICAgICAgICAgICAg ICAgICAgICAgICAgICAgICAgICAgICAgICAgICAgICAgICAgICAgICAgICANCiAgICAgICAgICAgICAg ICAgICAgICAgICAgICAgICAgICAgICAgICAgICAgICAgICAgICAgICAgICAgICAgICAgICAgICAgICAg ICAgICAgICAgICAgICAgICAgICAgICAgICANCiAgIC AgICAgICAgICAgICAgICAgICAgICAgICAgICAgICAgICAgICAgICAgICAgICAgICAgICAgICAgICAgIC AgICAgICAgICAgICAgICAgICAgICAgICAgICAgICAgICAgICANCiAgICAgICAgICAgICAgICAgICAgIC AgICAgICAgICAgICAgICAgICAgICAgICAgICAgICAg ICAgICAgICAgICAgICAgICAgICAgICAgICAgICAgICAgICAgICAgICAgICAgICANCiAgICAgICAgICAg ICAgICAgICAgICAgICAgICAgICAgICAgICAgICAgICAgICAgICAgICAgICAgICAgICAgICAgICAgICAg ICAgICAgICAgICAgICAgICAgICAgICAgICAgICANCj w/xRDaO8bxdTYpytC4Z2nyRh8KLq7CRK3vd2KvACNwSDqorcYhOnaBMdPpBYDnIshCZvl7ODgqOF9ZaJ AuT3VgP8LgTBbuOY3AVOZbUMTehNQiXAKxNXYvDxZ3KCXiPXkmVC4PiHMbVQyyIWUcPNUkEC4QAKIaT7 05jlBhCJ4IYl9BFnRgNZ2bix2UVdOzNXJyBaeQCxc1 QAbjEB7CwTImqMOoXKAuAGVWOaLtC2sfl2AbOwAkRCFPUTsfVR1Dj1LqzWBsHPs+Ps5DXX8za6EhXJgg CXFfGM8vlf2AZGbKDeDeE9StzJbiIG54qsFhurtcJc41QCOjfXAAc2JwTzJMP2W8CU2mSMTUWYG7ITgk Ml6fPCTgVXLeQcB1BZKYJN9JQDBjPRXjiEGyKLYrAW GZPA2XMMewVJM7HvndzqThnTZkXCraNE1GDCByziRkDvTvOLZQRDr+Ru5TYC9mf5CmLHwiNbHsCK1mbt 8HMQfBUwHpL4D6uOYpP0G1TVbmUm6XTUGwBGOnKtXjLMLAFZuzGY2FTI2cfsA4NB9JhXQtRXJsZQVbbL YbNBh2P91rxGIqKAwqYR8OMOS+Dillon+Ix7SCHLnNLKa JWQjTsPaKGWREcEwM9MyJ8AYv9QvH7QpLA54mYjuqiJaCXecZN0XMU5wNDBsJGSGAQ6JmLWscN1fbtOb PYHbAIKKBiFgL74gdIMoLNEtSRXjKZBbNf2AYOXbM5PgtwWjrKjjgtXeTXFnQUNDHY1CXJguefGqjSLv fAxgVP02sEieIS9TFf4MAmJpZC8hwr2HkXIqMf6YUJ WoAq6WWGDyBMYlKSKfLXD0MXAzIaIhVYdfXAZbSKDmFJA8TXQmUGBxOW5MAuUcNMLyCnAiNRToFYBcFL Xqkw8NSBGfFFKkVqraSAYpUGCmYELsZZeoYZPdTJAkOIS5OMPfCWMdXM9EVlQwGLLpIZTeSlQyTSEaXD Hybd4SCLBsOSIfAuTiLoVbVDPcFWBnAGnnPIMtPUB3 Qom3DERtDBJiFP9QWwSoJMZzUAG6AJTgBJWrFYDqie5QVKQeNTFwKXI4EAUzHGBpAXVwBXczRAGtDSQ0 VsZ5YFDeWHFpES3GRwHgVUPtKSX7JfUgNBZiYIVtdi4NSAFmFKPoLxXpZFAgBGShACTwOOphWLUvSJS8 QyQ8AEYzKLSjEZ8FSkZyUYCiIDs0FdWvIFIeLTBmwd 7ZUWKgTSWmELw6WaXyMCLrMZFmGIflIRXnTMM2JQYfYSOuEKOxSB6IBsAySCAzHTgxYwacWSNbSZIvdc 5UIFHpPCOtHJPaGXUeRREqDWNgNDwbFAGrMTMbLyw7BRSyJEUeBB9MCxOlFPZzTnH1FpvbMBXbMSRock 9NDWTbTYUyKBy6OgVnJRLaXCHxXKchRDTsVAEgKZLb SVFhQSPlOZ8VXxLfCLEbJjH8OykdVSMcLYNurq3FYOYyTPIpHfPhAyEmWNRtHAKcVJiyXQIyGIQgWGu2 CENbOWMjRD1KHqXuAIYnKkCgNpUhPVQoYQIitt7IgEZaaBfszl1VZRqMUr6CkDboOFL7MJrpMq8rfSOq CcNuTYZDKx0BfmSnTHTlOKNIQGdcMVPrAYWjVLToLH XdPnPlNvHlWtLqRxKhLGSaGWWrGLC8UHK5DkI7XWNtUzGiKNHgWMAsF0TzIfF4PUP9QCQlDTSnDuidEH Y+BH2aXUu+Pj1If2IbvtA2ilFpJOlcIeA3MY0GRIIRQ1JCOj== ID Date Data Source [id number] 03/13/2021 02:24:[address] [facility] Name Value Range Interpretation Code Description Data Stephanie rce(s) Supporting Document(s) Care Plan [facility] AOUHJo0jCaSGEjIz97/CQApqGXUpz0GfJKfhKRk7MNiyRJZuQ4IzIMI4oY1iOQF3EVrUKfNtVyUqKNRf lbm [file] o+4doOQMOcpYSi4D4qz+pelletizer operator/HIvLLltdtVtdirlIpEr2+2g3qo44iyiGJIMRPtWyHmSvTDswkStObM3c [file] Aircraft [employer]+rTK8ckCy5ENtlOy3Zni4oWml6z3sT/ZkD2xxt3r [file] AgICAgICAgICAgICAgICAgICAgICAgICAgICAgICAg ICAgICAgICAgICAgICAgICAgICAgICAgICAgICAgICAgICAgICAgICAgICANCiAgICAgICAgICAgICAg ICAgICAgICAgICAgICAgICAgICAgICAgICAgICAgICAgICAgICAgICAgICAgICAgICAgICAgICAgICAg ICAgICAgICAgICAgICAgICAgICAgICAgICANCiAgIC AgICAgICAgICAgICAgICAgICAgICAgICAgICAgICAgICAgICAgICAgICAgICAgICAgICAgICAgICAgIC AgICAgICAgICAgICAgICAgICAgICAgICAgICAgICAgICAgICANCiAgICAgICAgICAgICAgICAgICAgIC AgICAgICAgICAgICAgICAgICAgICAgICAgICAgICAg ICAgICAgICAgICAgICAgICAgICAgICAgICAgICAgICAgICAgICAgICAgICAgICANCiAgICAgICAgICAg ICAgICAgICAgICAgICAgICAgICAgICAgICAgICAgICAgICAgICAgICAgICAgICAgICAgICAgICAgICAg ICAgICAgICAgICAgICAgICAgICAgICAgICAgICANCi AgICAgICAgICAgICAgICAgICAgICAgICAgICAgICAgICAgICAgICAgICAgICAgICAgICAgICAgICAgIC AgICAgICAgICAgICAgICAgICAgICAgICAgICAgICAgICAgICAgICANCiAgICAgICAgICAgICAgICAgIC AgICAgICAgICAgICAgICAgICAgICAgICAgICAgICAg ICAgICAgICAgICAgICAgICAgICAgICAgICAgICAgICAgICAgICAgICAgICAgICAgICANCiAgICAgICAg ICAgICAgICAgICAgICAgICAgICAgICAgICAgICAgICAgICAgICAgICAgICAgICAgICAgICAgICAgICAg ICAgICAgICAgICAgICAgICAgICAgICAgICAgICAgIC ANCiAgICAgICAgICAgICAgICAgICAgICAgICAgICAgICAgICAgICAgICAgICAgICAgICAgICAgICAgIC AgICAgICAgICAgICAgICAgICAgICAgICAgICAgICAgICAgICAgICAgICANCiAgICAgICAgICAgICAgIC AgICAgICAgICAgICAgICAgICAgICAgICAgICAgICAg ICAgICAgICAgICAgICAgICAgICAgICAgICAgICAgICAgICAgICAgICAgICAgICAgICAgICANCjw/eHBh C3welTRtbiW2U9ywDx6ARy2SHC0ij5UeXTUfTDlptnSxDkiAJmRzVWVqOysGPcs7ZJorUJ6YyZHnL0Mc F8QbZQlzMI5IMZObRRHzlSWoEWTmEOMyXuX4BZRsFQ ksUU7XvLUbFGtwORGhCJRnNlHcKOYgDT0EJKCdX239qqOuYa8RIb7AOoByQQ9aym2UAfthHSWtJzxCOk j4TDukYM4CiTZtjHVyMJFyPCDPHyTqY8rxf3QhWkdwZAREQSnlUG4My1KtbSOjXTe+Uf8UCX1vv5PbXE lbZSVyIB6lcl8ZMBpFDwUcU6WomQniXKBkibBqHEmv ivJcuTSQj8EjAsGKI6B4NA8jTLGWPUK3AZbgQa0xRKLpYLLwBhMkVOIKWV6GMNOoWBLigLDxOZIfLSCD KA6GDAfdJPR1NolnriEbpHLmAIlvXA6FBVWsrrFjAydzRBEWKDt+Rm5HMF4ux9YtSSnmQKXrUB7zle6K CBmIHsSsM1P3mGRwE4L3XKyrDu9HAIGmUXYqVoCwVE DZOMpiUY3BUS8gufZ9OK0PvCSmLBFyYBGuePAcNKe0R13lmIQhZHcfOP8FSXE+Dillon+Yd4LESIxKVTyTF AaMdErUSTERdFwT6FtT8DDt2BfH1AlWP38gWthqmVgCFytGJ2CKC6uHHYeEQPLPE9OiLZtpL0cewTcYw WnJPZSNiUuW95xxAYhHHOnUPR2BZJlZd7EDOFpS6Ow dqCtnShdhpVbNHYwBSCEHB0BGAwjtkHajESatSopEP01oQhjQR8EFc2VViWkXK2pbv4AdPMwTr4JTPCy EV6YCXVwQPIoUIWqCAM4AGDoSxLuEWjyOLOiUURgOEO9BIDnZJTsDX6MNfDcPROkAfM3EWlhFPEtVOBy ay1FEPIzIBEkQET0ERSdMVBxWTYvISrdTNSpYUPcLZ N5XYLzDZCjZX1MVbBbFVNnVZO5BIlsJFBkGSEbuc2FWETdPQRzDtygOpAwJCNvUPKuFDwtDJPkGPI3SE abXKFkOZLuML5LKkRmFASuMAVwAKJnGCAsOUCgrm1JCLJmXIBxVOS3AXPyZSNnAFQvTGbbFDJzIEY3LN Z5UHIrICVkJQ6GDlEeELGlJCS3VXUmACJgAXErps9T TXBnJYWbUhIgTNTdUZQkMHNhKRgkOWWdQJN9Qaj9NXErWCUvJP5ESxHyCYAhYHQ6PPItWBBxUJRvvx6X LODdXMDwKORkKQSsOSNfYYBcTCwlNLBaKPC0NeH8OORuEKSbXA8DHrCeANFwMGv8LJRgDVWyFJYymj3L IQUpWRJfFQA2CJRdWWUiQNXgZWmgWTXhXFWqYnMqZC FjOAKgSD7YEyVhGPGoMsVaPIMuXJNtBLQbdu5OPPDuURVtPFT3ABWxDIMhXGMtFBjqVTZiGHFhKQO4BS WmLOYqUP0HOdTgFABlZlN3PJdvETMuAVTxas1MJJJbGWDzSqK3VWBtPPDkVCFhLClyYTBuWNNbPLY5AA QcVYSqXP4EMfFoNDZtTlUzHKGnVWBdNUNfzy9BPJTm GYRmYUz1EXLnQGWeAVGqCTntYMOwICS8BXV8CJGyHSQqZE4IKlJzMCJqPvF5YYFxRUQxWQZqsh4RfCHp kOnrko6MFZlPYq6KgLfbFJWoXXblNg8soACtLIXyYTUBTc4MpzZfVMHyKMQOCOzeOYHnVRAfExQaYSvy OoCoS7Y8ZQp5XPVjTlr1TdLmTya5P6M7NkT6PCYyHY I2NZJdXFTdIQVvQHvsTYEsHmG4HyZaGWUvArP+QH7pDKj+Mh3Qy5AlfvC0dzWtQRjiIXWyYG8HBJLLE4 YNCg== ID Date Data Source [id number] 03/13/2021 02:22:[address] [facility] Name Value Range Interpretation Code Description Data Stephanie rce(s) Supporting Document(s) Nursing Note [facility] KOHFFi0zQbSOTeUa69/JQIuwAQFwr7DkXJmqKXx7DJbfBZBbY0SzQAD6hV2lEGB5TOtBIoYwLmNjXMOt lbm [file] ID Date Data Source [id number] 03/13/2021 11:15:[address] [facility] Name Value Range Interpretation Code Description Data Stephanie rce(s) Supporting Document(s) ED Triage Notes [facility] EDZXDi4sXlWVEfIi66/CHLfaRISve4FsMXnhKZb6PTntCMSaO7BfRCA7qI1kLVW1PRpZRuYjNkTeOAEx lbm [file] AgICAgICAgICAgICAgICAgICAgICAgICAgICAgICAgICAgICAgICAgICAgICAgICAgICAgICAgICAgIC DdHAWvSIQkXNOwTTHpMSJaRXCyCDLsSAHyCYNhRNVwVIBjSJ5LOTWyXAZhGNGgONClDIJlLHPfHCLhVD AgICAgICAgICAgICAgICAgICAgICAgICAgICAgICAg UXIoIBXdUCRmIYObBAKlRTDrRQInPSJjSLXuONIuVDFcBTDnECTzNGCjYTOuBV1EHOKdQHWaWKJmZKMk ICAgICAgICAgICAgICAgICAgICAgICAgICAgICAgICAgICAgICAgICAgICAgICAgICAgICAgICAgICAg PGMmWHNhDTQyWOPpDLIzBYJcELGsGJNbEJWcWL3BQF AgICAgICAgICAgICAgICAgICAgICAgICAgICAgICAgICAgICAgICAgICAgICAgICAgICAgICAgICAgIC MiRHVlOHRfBKMrSQUdZMHnMVXfJWKlVUHzNQArKTUtUBJpPGAvJO2PFWOsJCLfQYBaOJMnJRCyNLZnCC AgICAgICAgICAgICAgICAgICAgICAgICAgICAgICAg QMHeHCDsTCDpASJdVRSnLTHgFNEsPKZoRPWgHKPvVGBaBJByTGLjTRGfGZBbYRFrMK8ILKDvWGKkMIOh ICAgICAgICAgICAgICAgICAgICAgICAgICAgICAgICAgICAgICAgICAgICAgICAgICAgICAgICAgICAg ICAgICAgICAgICAgICAgICAgICAgICAgICAgICAgIA 0KICAgICAgICAgICAgICAgICAgICAgICAgICAgICAgICAgICAgICAgICAgICAgICAgICAgICAgICAgIC AsRVVsPBRlAVBcABYuCRLoUHZjVXNqTHXpJRBiETIxQGZiOJYzKNNhIT7VLIEeBALzMTVmKWOtAPVtJX AgICAgICAgICAgICAgICAgICAgICAgICAgICAgICAg TDKvEVXdOTLkTYAvCJKzODQeFIAgSNIaUSCpHKGlSSRoFDMuNKGfCHSeDCHsVGOhGMMqKJ2HOBDjEQXk ICAgICAgICAgICAgICAgICAgICAgICAgICAgICAgICAgICAgICAgICAgICAgICAgICAgICAgICAgICAg ICAgICAgICAgICAgICAgICAgICAgICAgICAgICAgIC AwYZ7AFZKiFBGgCGWbCAGmMUXxQWCqATLmAOLuHRHkOIPlVBBtQPZeIWAdSVCnHVSmNYMpEVErQLCdRE JlCFQzCDSoPQTvUXZlPVOmORGaXKVpREZsYODwUABpESXdUXUdFNItWAZeKW0ZSM72xLFav0C6DZMwPF 0ndyc/Cd9BWCrqbaTizPNjIT8ONfEnGM1ikj1WEaSl XO3anr5FVFcGKrMsQ2B8nPWoGRVwQYLXXwPsM93cEQjpXy99FCrhUDDpFtOpSGh9Xe1IAcDcT1reYEZv JvG4OFTmOdEeKGbuWP5Pc6RqpZSoIMq+Nm0UUS2le6OhVTgfAzJrTR3feu2EYMqRPwLnD4JunrJ3DTEv DFJtOe0GXQJgKUGrjMFjEjHmISKNUnEeZ8XsmS38DN ENCj4+IPwfchRlXywCYoGoTMEgo9YbQCs6GC9AVMNoTNh7zXWdAZSzOTNsBIczFI9qjRCgMPY5XOEdrG YwRHOmluF6xP37iSQqTEXXQWZ1KHvfRu6dNJYpVHRcPqZtEOFREW4JKQBqTPRqfSJoYAGbGFUJCT9LLI itFLX2NkgrlcFejTCwAGxsXE4FOIDcgtWzEjAlJUCD DQo+Eg1VXI8tm0GbZCppPMDwYT7tpf6WWQnPRbZwE9S0qYNyH3H1DDoeRb8OJFCaAVRrZpLpIRHTROax DC9SJM8krrT4PN0YrDLfYABlOHSzzRBnUHv3L40dhOLoOXpmWF4ANNY+Dillon+Ck7AMOLzLBKpVKQqOfSq MLEIDiHqF9BqH2MXr8FvO8NfOF09xLegjbMkVThwRB 9BGV3dXVTuPFDAJI0UtPDuuL0iitYuEcKuTQWROhWaZ49qrWVtZHYhOFWpJEDuHf1PDLIsQ7WqnpSfhH wmxeOtBSJqRGVEKQ2TOEgcomHsrFUppWvmRI16zDvmBF2OQk2HUiGbAV5cvv8JcLIfZg6GLXGpVU9LTF JuONUfMNJpVUX3JTScUhQpYIjcQTHuALAhONV6SCTv HYHwMO4ZLlHaKCGcSWc3IuopELVmICKlsb4PJSUqIPFgNYOxVKLqMZYeOUUaSOwuQYBoNZEoENO5UMYd PIZtPN5YJbYkAOPuVCVaPLiyQGZpRMYosv9WQYUxDXWjAUBoYqCoVFJlSTCwIAupAHPfLJQbLIEpYUNf MCQvFI2KYmDhVFFqRSR9QrPgJFSnGCLqiy5AOMLdBG QyAsi6KmHuVUVlCHQyJLivEHQhUOKeIAO0SNSmUXSgUC3OJvHdXBKkSPTwWGZnVAGxRFWkmm8UAWPzNI RjVLB6PFZgCKZzBEAaTSimOAKjNII9CbM0BBYbGRRuMX6ATbQhAUAuHCC3SDAiNWZaUJEulg0JQQVaJZ BqXiL8AEEdYNWtCHDoQWndGJAtJZB9Bii4JYQtEWKt ZO9YRxSvWIHbDWk0LQDxKUUnEKRcgd0IURWlVKYiRRC9RaPfWZOhSZZgBGwlTOFxHGH7JbhdPDSzMQIl UR2RExQoFRJsJOk1DCFeLYHsOLFmmc0PLIEgXUTwDCN9WVShVCKgBNPlVRneOCKwOOIdPic6LTQvAKXf QA6GCxRsEDJkUfS4ZcLfPSKeFFVqvu8TAOSqSMSbXV zmPTXfXSOfKAJaUNr7keBafHCgXId8PW6FV7FtrkZgCjYYFk4Ty618ZGW7THBvZf6PP3dmRn1yBLDaUV [id number] ID Date Data Source [id number] 03/11/2021 08:16:00 PM EDT [facility] Name Value Range Interpretation Code Description Data Stephanie rce(s) Supporting Document(s) SARS coronavirus 2 RNA [Presence] in Res piratory specimen by CORDELL with probe detection NEGATIVE [facility] This lab was ordered by [facility] a nd reported by [facility]. ID Date Data Source [id number] 03/05/2021 09:30:00 PM EDT [facility] Name Value Range Interpretation Code Description Data Stephanie rce(s) Supporting Document(s) Respiratory specimen severe acute respir atory syndrome coronavirus 2 (SARS-CoV-2) RNA Negative (qualifier value) [facility] [place] and reported by . ID Date Data Source [id number] 03/05/2021 10:26:00 PM EDT [facility] First test? UNKNOWNEmployed in healthca re? UNKNOWNSymptomatic per CDC? UNKNOWNIf yes date of onset? 03/05/21Hospitalized? UNKNOWNICU? UNKNOWNResident in congregated care? ex fpc, ARC YES? UNKNOWN Name Value Range Interpretation Code Description Data Stephanie rce(s) Supporting Document(s) SARS-CoV-2 RNA Negative Normal (applies to non-numeric r esults) [facility] Negative results should be treated as [...] Certificate of Accreditation. Factsheets for healthcare providers: https://www.fda.gov/media/518710/download Factsheets for patients: https://www.fda.gov/media/969653/download The ID NOW Instrument is a rapid molecular in vitro diagnostic test utilizing an isothermal nucleic acid amplification technology intended for the qualitative detection of nucleic acid from the SARS-CoV-2 viral RNA. THIS IS A STATE REPORTABLE COMMUNICABLE DISEASE. Manual entry verified by Aysha Andrade 03/05/21 2225 ID Date Data Source [id number] 03/05/2021 10:15:00 PM EDT [facility] Name Value Range Interpretation Code Description Data Stephanie rce(s) Supporting Document(s) Troponin I 0.000-0.056 Normal (applies to non-numeric resu lts) [facility] ID Date Data Source [id number] 03/05/2021 10:15:00 PM EDT [facility] Name Value Range Interpretation Code Description Data Stephanie rce(s) Supporting Document(s) Acetaminophen 10.0-30.0 Below low normal [facility] ID Date Data Source [id number] 03/05/2021 10:15:00 PM EDT [facility] Name Value Range Interpretation Code Description Data Stephanie rce(s) Supporting Document(s) Magnesium 1.8-2.4 Normal (applies to non-numeric resul ts) [facility] ID Date Data Source [id number] 03/05/2021 10:15:00 PM EDT [facility] Name Value Range Interpretation Code Description Data Stephanie rce(s) Supporting Document(s) Sodium 142 mmol/L 136-145 Normal (applies to non-numeric resul ts) [facility] Potassium 3.5-5.1 Normal (applies to non-numeric resul ts) [facility] Chloride 107 mmol/L 98-107 Normal (applies to non-numeric resul ts) [facility] Carbon Dioxide CO2 21-32 Normal (applies to non-numer ic results) [facility] Anion Gap 5.0-16.0 Normal (applies to non-numeric resul ts) [facility] BUN 17 mg/dL 7-18 Normal (applies to non-numeric results) [facility] Creatinine,Serum 0.7-1.2 Normal (applies to non-numeric results) [facility] GFR >60 Normal (applies to non-numeric results) [facility] Glucose Level 93 mg/dL 60-99 Normal (applies to non-numeric re sults) [facility] Reference range is only applicable when patient is fasting Note the following drug interference: Sulfasalazine Sulfapyridine Can see falsely depressed Can see falsely elevated result with up to 17% results with up to 11% decrease in measurement increase in measurement Recommend patients be collected for this test prior to administration of either drug. Calcium 8.5-10.1 Normal (applies to non-numeric resul ts) [facility] Bilirubin,Total 0.1-1.9 Normal (applies to non-numeric results) [facility] SGOT(AST) 21 U/L 15-37 Normal (applies to non-numeric resul ts) [facility] Note the following drug interference: Sulfasalazine Sulfapyridine Can see falsely depressed Can see falsely elevated result with up to 10% results with up to 10% decrease in measurement increase in measurement Recommend patients be collected for this test prior to administration of either drug. SGPT(ALT) 43 U/L 12-78 Normal (applies to non-numeric resul ts) [facility] Note the following drug interference: Sulfasalazine Sulfapyridine Can see falsely depressed Can see falsely elevated result with up to 29% results with up to 10% decrease in measurement increase in measurement Recommend patients be collected for this test prior to administration of either drug. Alkaline Phosphatase 113 U/L 38-126 Normal (applies to non-num deena results) [facility] can increase Alkaline Phosp le vels up to 2 times the normal adult value. Normal values for children and adolescents are 2 to 3 times the normal adult value. Total Protein 6.0-8.2 Normal (applies to non-numeric re sults) [facility] Albumin Level 3.4-5.0 Normal (applies to non-numeric re sults) [facility] ID Date Data Source [id number] 03/05/2021 10:15:00 PM EDT [facility] Name Value Range Interpretation Code Description Data Stephanie rce(s) Supporting Document(s) Salicylate 2.8-20.0 Below low normal [facility] ID Date Data Source [id number] 03/05/2021 10:14:00 PM EDT [facility] Name Value Range Interpretation Code Description Data Stephanie rce(s) Supporting Document(s) Ethanol Less than 10.0 Normal (applies to non-numeric r esults) [facility] ID Date Data Source [id number] 03/05/2021 09:36:00 PM EDT [facility] Name Value Range Interpretation Code Description Data Stephanie rce(s) Supporting Document(s) White Blood Count 3.5-10.5 Above high normal [facility] Red Blood Count 3.90-5.00 Normal (applies to non-numeric results) [facility] Hemoglobin 12.0-15.5 Normal (applies to non-numeric resul ts) [facility] Hematocrit 34.9-44.5 Normal (applies to non-numeric resul ts) [facility] Mean Corpuscular Volume 81.2-95.1 Normal (applies to non- numeric results) [facility] Mean Corpuscular Hgb 25.6-32.2 Normal (applies to non-num deena results) [facility] Mean Corpuscular Hgb Conc 32.0-36.0 Normal (applies to no n-numeric results) [facility] Red Cell Distribution Width 11.9-15.5 Normal (appli es to non-numeric results) [facility] Platelet Count 258 x10 3/uL 150-450 Normal (applies to non-numeric results) [facility] Mean Platelet Volume 9.4-12.4 Normal (applies to non-num deena results) [facility] Neutrophils% (Auto) 31.0-71.0 Normal (applies to non-nume frank results) [facility] Lymphocytes% (Auto) 20.0-55.0 Normal (applies to non-nume frank results) [facility] Monocytes% (Auto) 4.0-12.0 Normal (applies to non-numeri c results) [facility] Eosinophils% (Auto) 1.0-8.0 Below low normal [facility] Basophils% (Auto) 0.0-2.0 Normal (applies to non-numeri c results) [facility] Immature Granulocytes% (Auto) 0.0-2.0 Normal (alexander lies to non-numeric results) [facility] Neutrophils# (Auto) 1.50-6.20 Above high normal [facility] Lymphocytes# (Auto) 1.20-4.00 Normal (applies to non-nume frank results) [facility] Monocytes# (Auto) 0.00-0.90 Normal (applies to non-numeri c results) [facility] Eosinophils# (Auto) 0.00-0.50 Normal (applies to non-nume frank results) [facility] Basophils# (Auto) 0.00-0.20 Normal (applies to non-numeri c results) [facility] Immature Granulocytes# (Auto) 0.00-7.00 No rmal (applies to non-numeric results) [facility] ID Date Data Source [id number] 03/05/2021 10:00:00 PM [facility] Collected By: Nurse Initials: ayleen wyatt Collected: 1999 Collected By: Nurse Initials: ayleen wyatt Collected: 1999 Collected By: Nurse Initials: ayleen wyatt Collected: 1999 Name Value Range Interpretation Code Description [facility](s) RBC,Urine None Seen [facility] WBC,Urine None Seen [facility] Squamous Cells,Urine None Seen [facility] Amorphous Sediment,Urine None Seen [facility] Bacteria,Urine None Seen [facility] ital ID Date Data Source [id number] 03/05/2021 10:00:00 PM [facility] Collected By: Nurse Initials: ayleen wyatt Collected: 1999 Collected By: Nurse Initials: ayleen wyatt Collected: 1999 Collected By: Nurse Initials: ayleen wyatt Collected: 1999 Name Value Range Interpretation Code Description Data [facility] rce(s) Supporting Document(s) Color,Urine Colorl-Dk Y Normal (applies to non-numeric res ults) [facility] Clarity,Urine Clear Normal (applies to non-numeric re sults) [facility] Specific [place],Urine 1.005-1.030 [facility] pH,Urine 5.0-8.0 Normal (applies to non-numeric resul ts) [facility] Protein,Urine Negative [facility] Glucose,Urine Negative Normal (applies to non-numeric re sults) [facility] Ketones,Urine Negative Normal (applies to non-numeric re sults) [facility] Blood,Urine Negative Normal (applies to non-numeric resu lts) [facility] Bilirubin,Urine Negative Normal (applies to non-numeric results) [facility] Urobilinogen,Urine 0.2-1.0 Normal (applies to non-numer ic results) [facility] Leukocyte Esterase,Urine Negative Normal (applies to non -numeric results) [facility] Nitrite,Urine Negative Normal (applies to non-numeric re sults) [facility] ID Date Data Source [id number] 03/05/2021 10:00:00 PM EDT [facility] Collected By: Nurse Initials: ayleen wyatt Collected: 1999 Collected By: Nurse Initials: ayleen wyatt Collected: 1999 Collected By: Nurse Initials: ayleen wyatt Collected: 1999 Name Value Range Interpretation Code Description Data Stephanie rce(s) Supporting Document(s) HCG,Ur Negative Normal (applies to non-numeric results) [facility] ID Date Data Source [id number] 03/05/2021 08:25:00 PM EDT [facility] Name Value Range Interpretation Code Description Data Stephanie rce(s) Supporting Document(s) UDS Benzodiazepines Screen Negative Normal (applies to n on-numeric results) [facility] UDS Cocaine Screen Negative Normal (applies to non-numer ic results) [facility] UDS Ampetamine Screen Negative Normal (applies to non-nu meric results) [facility] UDS Cannabinoids Screen Negative Normal (applies to non- numeric results) [facility] UDS Opiates Screen Negative Normal (applies to non-numer ic results) [facility] UDS Barbiturates Screen Negative Normal (applies to non- numeric results) [facility] Threshold Levels Benzodiazepine 200 ng/mL Cocaine 300 ng/mL Amphetamines 1000 ng/mL Cannabinoids (THC) 50 ng/mL Opiates 300 ng/mL Barbiturates 200 ng/mL All positive findings are presumptive and unconfirmed. Confirmation of positive results are performed only at request of provider. Unconfirmed results must not be used for non-medical purposes (i.e. preemployment and legal purposes) ID Date Data Source [id number] 03/04/2021 03:33:00 PM EDT Joe heaton Exam Number: [id number] Reported By: - JEREMIAH PEOPLES MD Signed By: JEREMIAH PEOPLES MD Name Value Range Interpretation Code Description Data Stephanie rce(s) Supporting Document(s) ID Date Data Source [id number] 03/03/2021 08:53:00 PM EDT [facility] Name Value Range Interpretation Code Description Data Stephaine rce(s) Supporting Document(s) DOFI-PeZ-1-result CoNarrative XPERT XPRESS SARS-CO V-2 REALTIME PCR ASSAY HAS EMERGENCY USE AUTHORIZATION (EUA) FROM THE FDA. [facility] This lab was ordered by [facility] and reported by [facility]. ID Date Data Source [id number] 03/03/2021 02:50:00 AM EDT [facility] Name Value Range Interpretation Code Description Data Stephanie rce(s) Supporting Document(s) Respiratory specimen severe acute respir atory syndrome coronavirus 2 (SARS-CoV-2) RNA Negative (qualifier value) [facility] This lab was ordered by [facility] and reported by . ID Date Data Source [id number] 03/03/2021 03:11:00 AM EDT [facility] First test? UNKNOWNEmployed in health[facility] re? UNKNOWNSymptomatic per CDC? UNKNOWNHospitalized? UNKNOWNICU? UNKNOWNResident in congregated care? ex fpc, ARC UNKNOWN? UNKNOWN Name Value Range Interpretation Code Description Data Stephanie rce(s) Supporting Document(s) SARS-CoV-2 RNA Negative Normal (applies to non-numeric r esults) [facility] Negative results should be treated as [...] Certificate of Accreditation. Factsheets for healthcare providers: https://www.fda.gov/media/635136/download Factsheets for patients: https://www.fda.gov/media/763535/download The ID NOW Instrument is a rapid molecular in vitro diagnostic test utilizing an isothermal nucleic acid amplification technology intended for the qualitative detection of nucleic acid from the SARS-CoV-2 viral RNA. THIS IS A STATE REPORTABLE COMMUNICABLE DISEASE. Manual entry verified by Marion Thompson 03/03/21310 ID Date Data Source [id number] 03/03/2021 02:26:00 AM EDT [facility] Name Value Range Interpretation Code Description Data Stephanie rce(s) Supporting Document(s) UDS Benzodiazepines Screen Negative Normal (applies to n on-numeric results) [facility] UDS Cocaine Screen Negative Normal (applies to non-numer ic results) [facility] UDS Ampetamine Screen Negative Normal (applies to non-nu meric results) [facility] UDS Cannabinoids Screen Negative Normal (applies to non- numeric results) [facility] UDS Opiates Screen Negative Normal (applies to non-numer ic results) [facility] UDS Barbiturates Screen Negative Normal (applies to non- numeric results) [facility] Threshold Levels Benzodiazepine 200 ng/mL Cocaine 300 ng/mL Amphetamines 1000 ng/mL Cannabinoids (THC) 50 ng/mL Opiates 300 ng/mL Barbiturates 200 ng/mL All positive findings are presumptive and unconfirmed. Confirmation of positive results are performed only at request of provider. Unconfirmed results must not be used for non-medical purposes (i.e. preemployment and legal purposes) ID Date Data Source [id number] 03/03/2021 02:21:00 AM EDT [facility] Collected By: Nurse Initials: [place] Time Collected: 157 Collected By: Nurse Initials: [place] Time Collected: 157 Name Value Range Interpretation Code Description Data Stephanie rce(s) Supporting Document(s) Color,Urine Colorl-Dk Y Normal (applies to non-numeric res ults) [facility] Clarity,Urine Clear Normal (applies to non-numeric re sults) [facility] Specific [place],Urine 1.005-1.030 [facility] pH,Urine 5.0-8.0 Normal (applies to non-numeric resul ts) [facility] Protein,Urine Negative Normal (applies to non-numeric re sults) [facility] Glucose,Urine Negative Normal (applies to non-numeric re sults) [facility] Ketones,Urine Negative Normal (applies to non-numeric re sults) [facility] Blood,Urine Negative Normal (applies to non-numeric resu lts) [facility] Bilirubin,Urine Negative Normal (applies to non-numeric results) [facility] Urobilinogen,Urine 0.2-1.0 Normal (applies to non-numer ic results) [facility] Leukocyte Esterase,Urine Negative Normal (applies to non -numeric results) [facility] Nitrite,Urine Negative Normal (applies to non-numeric re sults) [facility] ID Date Data Source [id number] 03/03/2021 02:21:00 AM EDT [facility] Collected By: Nurse Initials: [place] Time Collected: 157 Collected By: Nurse Initials: [place] Time Collected: 157 Name Value Range Interpretation Code Description Data Stephanie rce(s) Supporting Document(s) HCG,Ur Negative Normal (applies to non-numeric results) [facility] ID Date Data Source [id number] 03/03/2021 02:54:00 AM EDT [facility] Name Value Range Interpretation Code Description Data Stephanie rce(s) Supporting Document(s) D-Dimer,Quant 0.19-0.50 Normal (applies to non-numeric re sults) [facility] The negative predictive value for DVT [...] on anticoagulant therapy. ID Date Data Source [id number] 03/03/2021 01:55:00 AM [facility] Name Value Range Interpretation Code Description Data Stephanie rce(s) Supporting Document(s) Ethanol Less than 10.0 Normal (applies to non-numeric r esults) [facility] ID Date Data Source [id number] 03/03/2021 01:55:00 AM [facility] Name Value Range Interpretation Code Description Data Stephanie rce(s) Supporting Document(s) Acetaminophen 10.0-30.0 Below low normal [facility] ID Date Data Source [id number] 03/03/2021 01:55:00 AM [facility] Name Value Range Interpretation Code Description Data Stephanie rce(s) Supporting Document(s) Sodium 143 mmol/L 136-145 Normal (applies to non-numeric resul ts) [facility] Potassium 3.5-5.1 Normal (applies to non-numeric resul ts) [facility] Chloride 107 mmol/L 98-107 Normal (applies to non-numeric resul ts) [facility] Carbon Dioxide CO2 21-32 Normal (applies to non-numer ic results) [facility] Anion Gap 5.0-16.0 Normal (applies to non-numeric resul ts) [facility] BUN 20 mg/dL 7-18 Above high normal [facility] Creatinine,Serum 0.7-1.2 Normal (applies to non-numeric results) [facility] GFR >60 Normal (applies to non-numeric results) [facility] Glucose Level 101 mg/dL 60-99 Above high normal [facility] Reference range is only applicable when patient is fasting Note the following drug interference: Sulfasalazine Sulfapyridine Can see falsely depressed Can see falsely elevated result with up to 17% results with up to 11% decrease in measurement increase in measurement Recommend patients be collected for this test prior to administration of either drug. Calcium 8.5-10.1 Normal (applies to non-numeric resul ts) [facility] Bilirubin,Total 0.1-1.9 Normal (applies to non-numeric results) [facility] SGOT(AST) 22 U/L 15-37 Normal (applies to non-numeric resul ts) [facility] Note the following drug interference: Sulfasalazine Sulfapyridine Can see falsely depressed Can see falsely elevated result with up to 10% results with up to 10% decrease in measurement increase in measurement Recommend patients be collected for this test prior to administration of either drug. SGPT(ALT) 44 U/L 12-78 Normal (applies to non-numeric resul ts) [facility] Note the following drug interference: Sulfasalazine Sulfapyridine Can see falsely depressed Can see falsely elevated result with up to 29% results with up to 10% decrease in measurement increase in measurement Recommend patients be collected for this test prior to administration of either drug. Alkaline Phosphatase 116 U/L 38-126 Normal (applies to non-num deena results) [facility] can increase Alkaline Phosp le vels up to 2 times the normal adult value. Normal values for children and adolescents are 2 to 3 times the normal adult value. Total Protein 6.0-8.2 Normal (applies to non-numeric re sults) [facility] Albumin Level 3.4-5.0 Normal (applies to non-numeric re sults) [facility] ID Date Data Source [id number] 03/03/2021 01:55:00 AM EDT [facility] Name Value Range Interpretation Code Description Data Stephanie rce(s) Supporting Document(s) Salicylate 2.8-20.0 Below low normal [facility] ID Date Data Source [id number] 03/03/2021 01:55:00 AM EDT [facility] Name Value Range Interpretation Code Description Data Stephanie rce(s) Supporting Document(s) Magnesium 1.8-2.4 Normal (applies to non-numeric resul ts) [facility] ID Date Data Source [id number] 03/03/2021 01:55:00 AM EDT [facility] Name Value Range Interpretation Code Description Data Stephanie rce(s) Supporting Document(s) Troponin I 0.000-0.056 Normal (applies to non-numeric resu lts) [facility] ID Date Data Source [id number] 03/03/2021 01:19:00 AM EDT [facility] Name Value Range Interpretation Code Description Data Stephanie rce(s) Supporting Document(s) White Blood Count 3.5-10.5 Above high normal [facility] Red Blood Count 3.90-5.00 Normal (applies to non-numeric results) [facility] Hemoglobin 12.0-15.5 Normal (applies to non-numeric resul ts) [facility] Hematocrit 34.9-44.5 Normal (applies to non-numeric resul ts) [facility] Mean Corpuscular Volume 81.2-95.1 Normal (applies to non- numeric results) [facility] Mean Corpuscular Hgb 25.6-32.2 Normal (applies to non-num deena results) [facility] Mean Corpuscular Hgb Conc 32.0-36.0 Normal (applies to no n-numeric results) [facility] Red Cell Distribution Width 11.9-15.5 Normal (appli es to non-numeric results) [facility] Platelet Count 274 x10 3/uL 150-450 Normal (applies to non-numeric results) [facility] Mean Platelet Volume 9.4-12.4 Below low normal [facility] Neutrophils% (Auto) 31.0-71.0 Normal (applies to non-nume frank results) [facility] Lymphocytes% (Auto) 20.0-55.0 Normal (applies to non-nume frank results) [facility] Monocytes% (Auto) 4.0-12.0 Normal (applies to non-numeri c results) [facility] Eosinophils% (Auto) 1.0-8.0 Below low normal [facility] Basophils% (Auto) 0.0-2.0 Normal (applies to non-numeri c results) [facility] Immature Granulocytes% (Auto) 0.0-2.0 Normal (alexander lies to non-numeric results) [facility] Neutrophils# (Auto) 1.50-6.20 Above high normal [facility] Lymphocytes# (Auto) 1.20-4.00 Normal (applies to non-nume frank results) [facility] Monocytes# (Auto) 0.00-0.90 Normal (applies to non-numeri c results) [facility] Eosinophils# (Auto) 0.00-0.50 Normal (applies to non-nume frank results) [facility] Basophils# (Auto) 0.00-0.20 Normal (applies to non-numeri c results) [facility] Immature Granulocytes# (Auto) 0.00-7.00 No rmal (applies to non-numeric results) [facility] ID Date Data Source [id number] 03/02/2021 11:08:00 AM EDT [address] HEALTH CONSULTPATIENT NAME: YARELI HATCH MR#: [id number] PHYSICIAN:AUTHOR: Colleen SMITH,Bogdan DATE: #: ERPATIENT : 00HistoryHistory of Presenting IllnessPatient is 20-year-old female, currently single, lives at [facility], pastpsych history of borderline personality [...] And she wanted to be discharged backto [facility]. However upon asking how she is [...] rce(s) Supporting Document(s) ID Date Data Source [id number] 03/02/2021 04:06:00 AM EDT [facility] Name Value Range Interpretation Code Description Data Stephanie rce(s) Supporting Document(s) SALICYLATE < 1.7 mg/dL 0.0-20.0 [facility] ID Date Data Source [id number] 03/02/2021 04:06:00 AM EDT [facility] Name Value Range Interpretation Code Description Data Stephanie rce(s) Supporting Document(s) ACETAMINOPHEN < 2.0 ug/mL 0-30 [facility] ID Date Data Source [id number] 03/02/2021 04:06:00 AM EDT [facility] Name Value Range Interpretation Code Description Data Stephanie rce(s) Supporting Document(s) ETOH NONE DETECTED N [facility] NONE DETECTED ID Date Data Source [id number] 03/02/2021 04:06:00 AM EDT [facility] Name Value Range Interpretation Code Description Data Stephanie rce(s) Supporting Document(s) GLU 120 mg/dL 70-110 [facility] Patients taking Sulfasalazine may have f alsely depressedGlucose levels. Patients taking Sulfapyridine may havefalsely elevated Glucose levels. Patients should be drawnfor Glucose before the initial administration of eitherdrug. BUN 16 mg/dL 7-23 [facility] CRE 0.685 mg/dL 0.500-1.300 [facility] GFR > 60 mL/min [facility] CHLORIDE 111 mmol/L 99-110 [facility] NA 141 mmol/L 136-147 [facility] POTASSIUM 3.6 mmol/L 3.5-5.1 [facility] TCO2 18 mmol/L 20-33 [facility] ANION GAP 15.6 10.0-20.0 [facility] CA 8.5 mg/dL 8.3-10.7 [facility] ALKALINE PHOS 118 U/L 45-117 [facility] TP 7.5 g/dL 6.0-7.8 [facility] ALB 3.7 g/dL 3.5-5.0 [facility] ESRD Dialysis patient Albumin reference range: 2.9-4.4 g/dL GL 3.8 g/dL 2.3-3.5 [facility] A/G 1.0 1.0-2.5 [facility] T. BILIRUBIN 0.2 mg/dL 0.1-1.1 [facility] [place] Total Bilirubin is n ot recommended forpatients undergoing treatment with eltrombopag (Promacta)due to the potential for falsely elevated results. ALTI 43 U/L 6-54 [facility] Patients taking Sulfasalazine and/or Sul fapyridine may havefalsely depressed ALT levels. Patients should be drawn forALT before the initial administration of either drug. AST 21 U/L 6-38 [facility] Patients taking Sulfasalazine and/or Sul fapyridine may havefalsely depressed AST levels. Patients should be drawn forAST before the initial administration of either drug. ID Date Data Source [id number] 03/02/2021 03:12:00 AM EDT [facility] Name Value Range Interpretation Code Description Data Stephanie rce(s) Supporting Document(s) WBC 9.90 x10E3/uL 4.0-10.5 [facility] RBC 4.15 x10E6/uL 4.20-5.40 [facility] Hemoglobin 12.4 g/dL 12.0-16.0 [facility] Hematocrit 37.0 % 37.0-47.0 [facility] MCV 89.2 fL 81.0-99.0 [facility] MCH 29.9 pg 27.0-31.0 [facility] MCHC 33.5 g/dL 32.7-35.6 [facility] RDW 12.4 % 11.5-14.0 [facility] Platelet count 243 x10E3/uL 150-450 N [facility] ital MPV 9.9 fl 6.9-9.5 [facility] Neutrophils 61.6 % 34-64 [facility] Lymphocytes 29.1 % 25-45 N [facility] Monocytes 7.2 % 1.7-10.6 [facility] Eosinophils 1.3 % 0.4-7.0 [facility] Basophils 0.3 % 0.1-2.0 [facility] Imm. Gran. 0.5 % 0.1-2.0 [facility] Abs. Neutro. 6.10 x10E3/uL 1.2-7.6 [facility] Abs. Lymph. 2.88 x10E3/uL 1.0-3.5 [facility] al Abs. Stone. 0.71 x10E3/uL 0.1-1.0 N [facility] l Abs. Eosin. 0.13 x10E3/uL 0.1-0.7 N [facility] al Abs. Baso. 0.03 x10E3/uL 0.0-0.1 N [facility] l Abs. Imm. Gran. 0.05 x10E3/uL 0.0-0.1 [facility] spital ANRBC% 0 % 0 [facility] ID Date Data Source [id number] 03/02/2021 03:28:00 AM EDT [facility] Name Value Range Interpretation Code Description Data Stephanie rce(s) Supporting Document(s) PCP VISTA NEG NEGATIVE [facility] MINIMUM LEVEL OF DETECTION IS 25 ng/ml BENZODIAZEPINES NEG NEGATIVE [facility] al MINIMUM LEVEL OF DETECTION IS 200 ng/ml COCAINE VISTA NEG NEGATIVE [facility] MINIMUM LEVEL OF DETECTION IS 300 ng/ml [facility]HETAMINES [facility] MINIMUM LEVEL OF DETECTION IS 1000 ng/ml BARBITURATES NEG [facility]GAT[facility] CUTOFF CONCENTRATION IS 200 ng/ml CANNABINOIDS NEG NEGATIVE [facility] CUTOFF CONCENTRATION IS 50 ng/ml METHADONE VISTA NEG NEGATIVE [facility] al MINIMUM LEVEL OF DETECTION IS 300 ng/ml OPIATE VISTA NEG NEGATIVE [facility] MINIMUM DETECTION LEVEL IS 300 ng/ml ID Date Data Source [id number] 03/02/2021 03:15:00 AM EDT [facility] Name Value Range Interpretation Code Description Data Stephanie rce(s) Supporting Document(s) HCG QUAL URINE Negative [facility] ID Date Data Source [id number] 03/02/2021 03:15:00 AM EDT [facility] Name Value Range Interpretation Code Description Data Stephanie rce(s) Supporting Document(s) URINE COLOR Yellow [facility] UAPR Cloudy [facility] UGLU Negative NEGATIVE [facility] URINE BILIRUBIN Negative NEGATIVE [facility] al UKET Trace NEGATIVE [facility] USG 1.028 1.010-1.025 [facility] UBLO Negative NEGATIVE [facility] UpH 5.0 5.0-8.0 [facility] UPRO Negative Negative [facility] UUB 1.0 mg/dL 0.2-1.0 [facility] UNIT Negative Negative [facility] ULEU Negative Negative [facility] ID Date Data Source [id number] 03/02/2021 11:27:00 AM EDT [facility] [place] Physician DocumentationClaxlexy-Naveen Hinkle edical CenterName: Yareli DuvallAge: 20 yrsSex: FemaleDOB: 2000MRN: [id number] Date: 03/02/2021Time: 02:30Account#: [id number] 5APrivate SMITH: NONE, - Per PatientED Physician Nils ArguetaDisposition Summary:03/02/21 11:12Discharge OrderedLocation: Home Self Care afProblem: an ongoing problem afSymptoms: are unchanged afCondition: Stable afDiagnosis- Adjustment disorder, unspecified afFollowup: af- With: Private Physician- When: 1 week- Reason: Recheck today's complaintsDischarge Instructions:- ADJUSTMENT DISORDER af- Discharge Summary Sheet [id number]:- Medication Reconciliation af- Medication Reconciliation Form - 2nd Copy afHPI:02/2202:50 This 20 yrs old White Female presents to ER via Police with oi9vajjisiekn of Psych Problem.02:50 Associated signs and symptoms: Pertinent negatives: abdominal pain, lu2lrkwd pain, fever, headache, nausea, shortness of breath, [...] denies any other problems or any other complaints..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 ibuprofen 400 [...] Temp 97.7; Pulse Ox 96% ; Weight vo0761.33 kg; Height 5 ft. 7 in. (170.18 cm);11:27 BP 124 / 76; Pulse 88; Resp 20; Temp 98; Pulse Ox 98% on R/A; fbg02:35 Body Mass Index 36.02 (104.33 kg, 170.18 cm) jw5MDM:02:40 Patient medically screened. th406:41 Data reviewed: vital signs, nurses notes, lab test result(s). ED kx3tdteix: Patient remained stable in the ER. Patient here for mentalhealth evaluation as above. Case is endorsed to Dr. Rica oliver of shift pending PSA evaluation and disposition. Patient ismedically clear and has been cooperative..02/2202: Order name: Acetaminophen Level; Complete Time: :: Order name: CBC with diff; Complete Time: Order name: CMP; Complete Time: : Order name: ETOH; Complete Time: : Order name: Glucose :38 Order name: Salicylate Level; Complete Time: Order name: Triage - Drug Screen; Complete Time: : Order name: UA; Complete Time: :: Order name: Urine HCG Qualitative; Complete Time: : Order name: Diet - Mental Health Tray (call dietary); Complete Time: jw504:49002/2202:38 Order name: Belongings List :38 Order name: Document Weight and Height for BMI; Complete Time: 04:50 : Order name: Mental Health Evaluation : Order name: Mental Health Level 3; Complete Time: 04:50 : Order name: VS q shift; Complete Time: :: Order name: Medically Cleared for Eval by-Psychosocial, [place] Sander th4(.PSA); Complete Time: 07:27Dispensed Medications:No medications were administeredSignatures:Dispatcher [employer] Anshul Loving MD MD afHowland, Todd, MD MD wz0QaygjFortunato humphrey RN RN gw0RhcxaRatna mccallum RN RN kk3 Name Value Range Interpretation Code Description Data Stephanie rce(s) Supporting Document(s) ID Date Data Source [id number] 03/02/2021 11:27:00 AM EDT [facility] terName: Yareli AdamelAge: 20 yrsSex: FemaleDOB: 2000MRN: [id number] Date: 03/02/2021Time: 02:30Account#: [id number] 5APrivate MD: NONE, - Per PatientDiagnosis: Adjustment disorder, unspecifiedPresentation:02/2202:32 Presenting complaint: Patient brought in by [employer] officer Noel Huerta for [address] evaluation for suicidal thoughts. International TravelFever No. Coronavirus Screening: Have you been diagnosed withCOVID-19 in the past 30 days? no [facility] no Flu-like symptoms reported in the last 14 days: no.Have you had close contact with confirmed or suspected COVID-19 case?no Do you live in a setting where a large of amount of people live,such as fpc, family care, fpc, etc? no. Have you traveledto a location with widespread or ongoing COVID-19 community spread [facility]? no Have you traveled internationally or hadcontact with someone that has traveled and has been ill in the past 3weeks? no Have you received the COVID vaccine? Yes. CommunicableDisease Screen: Negative for fever>/= 100 degrees Fahrenheit.Communicable disease screen is negative. (-) rash or unusual skinlesion (-) travel/contact with traveler (-) respiratory symptoms.Communication Speaks [place]? Yes, is preferred language.02:32 Acuity: Triage 2 jw502:32 Method Of Arrival: Police jw502:34 Acuity Assignment: Triage 2 yh7Ikshsk Assessment:02:34 Sepsis Screening: (1)Signs/symptoms infection Sepsis is not kd8bvsayjnnh. Pain: Denies pain. PSS-3 Now I'm going [...] noted. : No deficits noted. 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 ibuprofen 400 [...] threats or abuse. Denies injuries from another. km4Cprhxqxqoiz screening: No deficits noted. Offer of HIV [...] in no apparent distress at this time. pp8Cjyzyhf is asleep.06:12 Reassessment: Patient appears in no apparent distress at this time. tj1Musieozourqe:10:54 SAFE Act Report Not Completed. Intervention: Observation Level 3. vu7Ldskiw health consult is initiated at 10:10. Referral Information:Evaluation referral is generated by the patient himself / herself.The patient was referred for evaluation because Suicidal Ideation.10:57 Subjective: The patients chief complaint is SI. Patient is a 20 y/o va5zgmrs female who was discharged from the inpatient [...] / Agency: [facility] Walk-In appointment in [place] on Wednesday.. LivingEnvironment:. Patient presents to Emergency [...] of patients status at 11:05, Mental Health SURGERY AIDE made awareof pt status at 11:05. Disposition: The patient has a safedestination which is Patient is being discharged back to [facility]. DSM-V DX [place] I diagnosis: Adjustment D/O w mixedemotion, conduct. The patient is not a food service substitute or militarydependent. Elliott Suicide Severity Rating Scale: Suicidal IdeationRating 0; Intensity of Ideations Rating 0; Suicidal Behavior Rating 0.Psych:02:37 Subjective: Patient's mood is sad, Delusions are denied, fj8Hrmkhyvsebamzq are denied Having thoughts of suicide. Denies [...] Temp 97.7; Pulse Ox 96% ; Weight xf2729.33 kg; Height 5 ft. 7 in. (170.18 [...] armband on for positive identification. Placed in hb9iepg. Bed in low position. Side rails up [...] Disposition: Discharged to home ambulatory. fbg11:27 Condition: oxzqwdkqi76:27 Discharge instructions given to patient, Instructed on dischargeinstructions, follow up and referral plans. medication usage.11:27 Discharge Assessment: Patient awake, alert and oriented x 3. Nocognitive and/or functional deficits noted. Patient verbalizedunderstanding of disposition instructions. Patient verbalizedunderstanding of disposition instructions. Patient has no functionaldeficits.11:27 Patient left the ED. fbgSignatures:Vincenzo Luis, JOSE LUIS RN fbgFedoroAnshul casillas MD MD afStickles, Robert, PSA PSA eq4JdeuspoNils Argueta MD MD lc0QrwdbFortunato humphrey RN RN np4BztlvRatna mccallum, JOSE LUIS RN sq7Htmnwyxxvaf: (The following items were deleted from the chart)11:06 10:54 Referral Information: Evaluation referral is generated by the hs9sfsjpgy himself / herself. rs2 Name Value Range Interpretation Code Description Data Stephanie rce(s) Supporting Document(s) ID Date Data Source [id number] 03/01/2021 11:36:00 AM EDT [address] [id number] HEALTH CONSULTPATIENT NAME: YARELI HATCH MR#: [id number] PHYSICIAN:AUTHOR: Kary Gray NP DATE: RM#: ERPATIENT : 00HistoryHistory of Presenting IllnessPatient is 20-year-old female, currently lives at [facility], past psychhistory of mood disorder, [...] stated that she has a friend from [place] that she talksand that friend treats her [...] rce(s) Supporting Document(s) ID Date Data Source [id number] 03/01/2021 08:18:00 AM EDT [facility] Name Value Range Interpretation Code Description Data Stephanie rce(s) Supporting Document(s) LCOVID-[facility], [facility] by [facility] and [facility] by [facility] ID Date Data Source [id number] 03/01/2021 08:55:00 AM EDT [facility] Name Value Range Interpretation Code Description Data Stephanie rce(s) Supporting Document(s) COVID-19, CORDELL NEGATIVE NEGATIVE [facility] Methodology: Isothermal Nucleic Acid Amp lification [...] Emergency Use Authorization. ID Date Data Source [id number] 02/28/2021 10:15:00 PM EDT [facility] Name Value Range Interpretation Code Description Data Stephanie rce(s) Supporting Document(s) PCP VISTA NEG NEGATIVE N [facility] MINIMUM LEVEL OF DETECTION IS 25 ng/ml BENZODIAZEPINES [facility] MINIMUM LEVEL OF DETECTION IS 200 ng/ml COCAINE VISTA NEG NEGATIVE [facility] MINIMUM LEVEL OF DETECTION IS 300 ng/ml AMPHETAMINES NEG NEGATIVE [facility] MINIMUM LEVEL OF DETECTION IS 1000 ng/ml BARBITURATES [facility] CUTOFF CONCENTRATION IS 200 ng/ml CANNABINOIDS [facility] CUTOFF CONCENTRATION IS 50 ng/ml METHADONE VISTA NEG NEGATIVE [facility] MINIMUM LEVEL OF DETECTION IS 300 ng/ml OPIATE VISTA NEG NEGATIVE [facility] MINIMUM DETECTION LEVEL IS 300 ng/ml ID Date Data Source [id number] 02/28/2021 09:59:00 PM EDT [facility] Name Value Range Interpretation Code Description Data Stephanie rce(s) Supporting Document(s) URINE COLOR Yellow [facility] UAPR Clear [facility] UGLU Negative NEGATIVE [facility] URINE BILIRUBIN [facility] UKET Trace NEGATIVE [facility] USG 1.028 1.010-1.025 [facility] UBLO Negative NEGATIVE [facility] UpH 6.0 5.0-8.0 [facility] UPRO Negative Negative [facility] UUB 1.0 mg/dL 0.2-1.0 [facility] UNIT Negative Negative [facility] ULEU Negative Negative [facility] ID Date Data Source [id number] 02/28/2021 09:59:00 PM EDT [facility] Name Value Range Interpretation Code Description Data Stephanie rce(s) Supporting Document(s) HCG QUAL [facility]INE Negative [facility] ID Date Data Source [id number] 02/28/2021 10:15:00 PM EDT [facility] Name Value Range Interpretation Code Description Data Stephanie rce(s) Supporting Document(s) SALICYLATE < 1.7 mg/dL 0.0-20.0 [facility] ID Date Data Source [id number] 02/28/2021 10:15:00 PM EDT [facility] Name Value Range Interpretation Code Description Data Stephanie rce(s) Supporting Document(s) ACETAMINOPHEN < 2.0 ug/mL 0-30 [facility] Date Data Source [id number] 02/28/2021 10:15:00 PM EDT [facility] Name Value Range Interpretation Code Description Data Stephanie rce(s) Supporting Document(s) ETOH NONE DETECTED [facility] NONE DETECTED ID Date Data Source [id number] 02/28/2021 10:15:00 PM EDT [facility] [place] Name Value Range Interpretation Code Description Data Stephanie rce(s) Supporting Document(s) GLU 98 mg/dL 70-110 [facility] Patients taking Sulfasalazine may have f alsely depressedGlucose levels. Patients taking Sulfapyridine may havefalsely elevated Glucose levels. Patients should be drawnfor Glucose before the initial administration of eitherdrug. BUN 14 mg/dL 7-23 [facility] CRE 0.645 mg/dL 0.500-1.300 [facility] GFR > 60 mL/min [facility] CHLORIDE 109 mmol/L 99-110 [facility] NA 140 mmol/L 136-147 [facility] POTASSIUM 3.6 mmol/L 3.5-5.1 [facility] TCO2 22 mmol/L 20-33 [facility] ANION GAP 12.6 10.0-20.0 [facility] CA 8.6 mg/dL 8.3-10.7 [facility] ALKALINE PHOS 114 U/L 45-117 [facility] TP 7.3 g/dL 6.0-7.8 [facility] ALB 3.6 g/dL 3.5-5.0 [facility] ESRD Dialysis patient Albumin reference range: 2.9-4.4 g/dL GL 3.7 g/dL 2.3-3.5 [facility] A/G 1.0 1.0-2.5 [facility] T. BILIRUBIN 0.3 mg/dL 0.1-1.1 [facility] [place] Total Bilirubin is n ot recommended forpatients undergoing treatment with eltrombopag (Promacta)due to the potential for falsely elevated results. ALTI 44 U/L 6-54 [facility] Patients taking Sulfasalazine and/or Sul fapyridine may havefalsely depressed ALT levels. Patients should be drawn forALT before the initial administration of either drug. AST 18 U/L 6-38 [facility] Patients taking Sulfasalazine and/or Sul fapyridine may havefalsely depressed AST levels. Patients should be drawn forAST before the initial administration of either drug. ID Date Data Source [id number] 02/28/2021 10:03:00 PM EDT [facility] Name Value Range Interpretation Code Description Data Stephanie rce(s) Supporting Document(s) WBC 10.31 x10E3/uL 4.0-10.5 N [facility] l RBC 4.19 x10E6/uL 4.20-5.40 [facility] Hemoglobin 12.3 g/dL 12.0-16.0 [facility] Hematocrit 37.1 % 37.0-47.0 [facility] MCV 88.5 fL 81.0-99.0 [facility] MCH 29.4 pg 27.0-31.0 [facility] MCHC 33.2 g/dL 32.7-35.6 [facility] RDW 12.2 % 11.5-14.0 [facility] Platelet count 274 x10E3/uL 150-450 [facility] ital MPV 9.7 fl 6.9-9.5 [facility] Neutrophils 60.8 % 34-64 [facility] Lymphocytes 29.1 % 25-45 [facility] Monocytes 8.0 % 1.7-10.6 [facility] Eosinophils 1.4 % 0.4-7.0 [facility] Basophils 0.2 % 0.1-2.0 [facility] Imm. Gran. 0.5 % 0.1-2.0 [facility] Abs. Neutro. 6.28 x10E3/uL 1.2-7.6 [facility] Abs. Lymph. 3.00 x10E3/uL 1.0-3.5 [facility] Abs. Stone. 0.82 x10E3/uL 0.1-1.0 N [facility] l Abs. Eosin. 0.14 x10E3/uL 0.1-0.7 [facility] Abs. Baso. 0.02 x10E3/uL 0.0-0.1 [facility] Abs. Imm. Gran. 0.05 x10E3/uL 0.0-0.1 [facility] ANRBC% 0 % 0 N [facility] ID Date Data Source [id number] 03/01/2021 12:39:00 PM EDT [facility] Physician DocumentationClaxlexy-Naveen Hinkle edical CenterName: Yareli DuvallAge: 20 yrsSex: FemaleDOB: 2000MRN: [id number] Date: 02/28/2021Time: 21:08Account#: [id number] MD: NONE, - Per PatientED Physician Nils ArguetaDisposition Summary:03/01/21 11:57Discharge OrderedLocation: Home Self Care afProblem: an ongoing problem afSymptoms: are unchanged afCondition: Stable afDiagnosis- Bipolar disorder, unspecified afFollowup: af- With: Private Physician- When: 1 week- Reason: Recheck today's complaintsDischarge Instructions:- BIPOLAR DISORDER af- Discharge Summary Sheet [id number]:- Medication Reconciliation af- Medication Reconciliation Form - 2nd Copy afHPI:02/2021:26 This 20 yrs old White Female presents to ER via Police with yy4zelmwipzlt of Psych Problem.21:26 Associated signs and symptoms: Pertinent negatives: abdominal pain, ur4vaedg pain, fever, headache, nausea, shortness of breath, [...] Temp 97.8; Pulse Ox 97% ; Weight pq0355.95 kg; Height 5 ft. 6 in. (167.64 cm);22:59 BP 120 / 64; Pulse 75; Resp 16; Pulse Ox 97% ; jw508/2:37 ml408/2020:15 Body Mass Index 38.41 (107.95 kg, 167.64 cm) jw512:37 refused vitals ml4MDM:02/2021:11 Patient medically screened. th408/2106:53 Data reviewed: vital signs, nurses notes, lab test result(s). ED ge8yogqxx: Patient remained stable in the ER. Patient here for mentalhealth evaluation as above. Case is endorsed to Dr. Rica oliver of shift pending PSA evaluation disposition. Patient ismedically clear and has been cooperative..02/2021:18 Order name: Acetaminophen Level; Complete Time: 22:15 jw508:18 Order name: CBC with diff; Complete Time: [...] name: Medically Cleared for Eval by- Psychosocial, [place] Sander th4(.JAN); Complete Time: 04::17 Order name: EKG in [...] mg [acetaminophen 325 mg tablet (2 tabs)] xh0Palvp: PO;09:45 Drug: Propranolol 10 mg [propranolol 10 mg tablet (1 tabs)] Route: PO;fbg09:46 Drug: sertraline 150 mg [sertraline 50 mg tablet (3 tabs)] Route: PO; fbg09:46 Drug: Topiramate 75 mg [topiramate 25 mg tablet (3 tabs)] Route: PO; fbgSignatures:Dispatcher [employer] Vincenzo Acosta RN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 eltrombopag (Promacta)due to the potential for falsely elevated results. ALTI 43 U/L 6-54 [facility] Patients taking Sulfasalazine and/or Sul fapyridine may havefalsely depressed ALT levels. Patients should be drawn forALT before the initial administration of either drug. AST 22 U/L 6-38 [facility] Patients taking Sulfasalazine and/or Sul fapyridine may havefalsely depressed AST levels. Patients should be drawn forAST before the initial administration of either drug. ID Date Data Source [id number] 01/28/2021 10:22:00 AM EDT [facility] Name Value Range Interpretation Code Description Data Stephanie rce(s) Supporting Document(s) WBC 5.96 x10E3/uL 4.0-10.5 [facility] RBC 4.47 x10E6/uL 4.20-5.40 [facility] Hemoglobin 13.4 g/dL 12.0-16.0 [facility] Hematocrit 39.5 % 37.0-47.0 [facility] MCV 88.4 fL 81.0-99.0 [facility] MCH 30.0 pg 27.0-31.0 [facility] MCHC 33.9 g/dL 32.7-35.6 [facility] RDW 12.0 % 11.5-14.0 [facility] Platelet count 256 x10E3/uL 150-450 [facility] ital MPV 9.5 fl 6.9-9.5 [facility] Neutrophils 55.0 % 34-64 [facility] Lymphocytes 35.9 % 25-45 [facility] Monocytes 6.5 % 1.7-10.6 [facility] Eosinophils 1.8 % 0.4-7.0 [facility] Basophils 0.3 % 0.1-2.0 [facility] Imm. Gran. 0.5 % 0.1-2.0 [facility] Abs. Neutro. 3.27 x10E3/uL 1.2-7.6 [facility] [place] [facility]. Lymph. 2.14 x10E3/uL 1.0-3.5 [facility] Abs. Stone. 0.39 x10E3/uL 0.1-1.0 [facility] Abs. Eosin. 0.11 x10E3/uL 0.1-0.7 [facility] Abs. Baso. 0.02 x10E3/uL 0.0-0.1 [facility] Abs. Imm. Gran. 0.03 x10E3/uL 0.0-0.1 N [facility] spital ANRBC% 0 % 0 [facility] ID Date Data Source [id number] 01/28/2021 09:45:00 AM EDT [address] [address]IOLGST HEALTH PROGRESS NOTEPATIENT NAME: YARELI HATCHAUTUMNGIOVANNY PHYSICIAN: BROOKLYN ONEILL MDAUTHOR: Lana Aquino. DATE: 01/03/21 MR#: [id number] NOTE DATE: 01/28/21 RM#: [id number] TIME: 954 [...] rce(s) Supporting Document(s) ID Date Data Source [id number] 01/27/2021 10:15:00 AM EDT [address] HEALTH PROGRESS NOTEPATIENT NAME: YARELI HATCH [facility] PH[facility]ICIAN: BROOKLYN ONEILL MDAUTHOR: Gema WHITE,Lana. DATE: 01/03/21 MR#: [id number] NOTE DATE: 01/27/21 RM#: [id number] TIME: 1114 is a 20-year-old white female.CC/Hx Present Illness"I overdosed"Events Since Last EntryPatient met with team today and presented as disheveled, unkempt, andmalodorous. Present were myself, flight operation coordinator, and charge nurse.Weekend events were discussed. [...] focused on havingmore one-on-one attention with her flight operation coordinator. She was told due toher behaviors [...] hasbeen receiving. Still awaiting bed availability at [facility] for housing as per [facility]. She currently denies any physical/medical complaints.ObjectiveVital [...] rce(s) Supporting Document(s) ID Date Data Source [id number] 02/03/2021 11:47:00 AM EDT [place] [address] HEALTH PROGRESS NOTEPATIENT NAME: YARELI HATCH CATTENDING PHYSICIAN: BROOKLYN ONEILL MDAUTHOR: Ana Win. DATE: 01/03/21 MR#: [id number] NOTE DATE: 01/26/21 RM#: [id number] TIME: 1154 [...] her on the phone. She also states herbjohniend broke up with her but it was [...] rce(s) Supporting Document(s) ID Date Data Source [id number] 01/24/2021 09:36:00 AM EDT [address] [place], [place] [address]GXHCYW HEALTH PROGRESS NOTEPATIENT NAME: YARELI HATCH FELTON PHYSICIAN: BROOKLYN ONEILL MDAUTHOR: Lana Aquino. DATE: 01/03/21 MR#: [id number] NOTE DATE: 01/24/21 RM#: [id number] TIME: 951 is a 20-year-old white female.CC/Hx Present Illness"I overdosed"Events Since Last EntryPatient presented as unkempt, disheveled and malodorous today. We discussedMarilu's good behaviors from yesterday and we also discussed boundaries todayin regards to staff and her flight operation coordinator. Patient became upset whenwe discussed boundaries [...] breath that was not audible to myself,the flight operation coordinator or the charge nurse.Mental status exam: [...] nursing staff.Continue to await bed availability at [facility]. Patient currently d enies anymedical/physical [...] rce(s) Supporting Document(s) ID Date Data Source [id number] 01/23/2021 09:20:00 AM EDT [place] [address]MENTAL HEALTH PROGRESS NOTEPATIENT NAME: YARELI HATCH PHYSICIAN: BROOKLYN ONEILL MDAUTHOR: Gema WHITE,DylanADM. DATE: 01/03/21 MR#: [id number] NOTE DATE: 01/23/21 #: 308EVALUATION TIME: 935 is a 20-year-old white female.CC/Hx Present Illness"I overdosed"Events Since Last EntryPresented today as cooperative and pleasant. In the meeting today the chargenurse was present, myself, and her flight operation coordinator Madelin. We discussedthe events yesterday that [...] also wrote a letter inputted underneath the flight operation coordinator'sdoor and inquired about this. This was discussed with her and she was informedthis was a good demonstration of how to use her coping skills. We discussedher behavior plan, how it was going to be developed, and what things she canexpect in it. We continue to discuss life skills. [facility] [...] of care.Continuing to await bed availability at [facility].ObjectiveVital SignsVital Signs-LastResult Date TimeB/P 118/78 [...] rce(s) Supporting Document(s) ID Date Data Source [id number] 01/22/2021 11:07:00 AM EDT [address] HEALTH PROGRESS NOTEPATIENT NAME: YARELI HATCH CATTENGIOVANNY PHYSICIAN: BROOKLYN ONEILL MDAUTHOR: Lana Aquino. DATE: 01/03/21 MR#: [id number] NOTE DATE: 01/22/21 RM#: [id number] TIME: 1116 [...] Continue to await for bed availability at [facility].Patient denies any physical and/or medical [...] rce(s) Supporting Document(s) ID Date Data Source [id number] 01/21/2021 08:25:00 AM EDT [address] HEALTH PROGRESS NOTEPATIENT NAME: YARELI HATCH PHYSICIAN: BROOKLYN ONEILL MDAUTHOR: Lana Aquino. DATE: 01/03/21 MR#: [id number] NOTE DATE: 01/21/21 RM#: [id number] TIME: 1000 [...] to wait for an open bed at [facility] for housing.ObjectiveVital SignsVital Signs-LastResult Date TimeB/P 126/80 01/21 0821Pulse Ox 97 01/20 1100Temp 97.5 01/20 1100Pulse 81 07/ 1100Resp 15 01/20 1100ExaminationMusculoskeletalMuscle Strength & Tone [...] SIGNED: 01/21/21 Electronically SignedTIME SIGNED: 1000 DYLAN RIBEIRO Name Value Range Interpretation Code Description Data Stephanie rce(s) Supporting Document(s) ID Date Data Source [id number] 01/20/2021 11:20:00 AM EDT [facility] [place] [address]MENT[place] HEALTH PROGRESS NOTEPATIENT NAME: YARELI HATCH PHYSICIAN: BROOKLYN ONEILL MDAUTHOR: Lana Aquino. DATE: 01/03/21 MR#: [id number] NOTE DATE: 01/20/21 RM#: [id number] TIME: 1255 [...] would notice. [facility] [...] safety. Continue to await bed availability [facility]. Lab work will again be ordered and patient will be encouraged toparticipate in the lab work with education provided as to why the order for labwork. Patient currently denies any physical or medical problems at this time.ObjectiveVital SignsVital Signs-LastResult Date TimePulse Ox 97 / 1100B/P 118/56 01/20 1100Temp 97.5 01/20 1100Pulse [...] rce(s) Supporting Document(s) ID Date Data Source [id number] 01/18/2021 09:57:00 AM EDT [facility] [place] Name Value Range Interpretation Code Description Data [facility] rce(s) Supporting Document(s) CHOL 182 mg/dL 100-200 [facility] TRIG 118 mg/dL 30-190 [facility] HDL 52 mg/dL 35-80 [facility] LDL DIRECT 111 mg/dL 0-100 [facility] VLDL 19 mg/dL 0-100 [facility] ID Date Data Source [id number] 01/18/2021 09:57:00 AM EDT [facility] Name Value Range Interpretation Code Description Data [facility]) GLU 113 mg/dL 70-110 [facility] Patients taking Sulfasalazine may have f alsely depressedGlucose levels. Patients taking Sulfapyridine may havefalsely elevated Glucose levels. Patients should be drawnfor Glucose before the initial administration of eitherdrug. BUN 17 mg/dL 7-23 [facility] CRE 0.741 mg/dL 0.500-1.300 [facility] GFR > 60 mL/min [facility] CHLORIDE 107 mmol/L 99-110 [facility] NA 142 mmol/L 136-147 [facility] POTASSIUM 4.4 mmol/L 3.5-5.1 [facility] TCO2 30 mmol/L 20-33 [facility] ANION GAP 9.4 10.0-20.0 [facility] CA 9.2 mg/dL 8.3-10.7 [facility] ALKALINE PHOS 111 U/L 45-117 [facility] TP 7.3 g/dL 6.0-7.8 [facility] ALB 3.9 g/dL 3.5-5.0 [facility] ESRD Dialysis patient Albumin reference range: 2.9-4.4 g/dL GL 3.4 g/dL 2.3-3.5 [facility] A/G 1.1 1.0-2.5 [facility] T. BILIRUBIN 0.5 mg/dL 0.1-1.1 [facility] [place] Total Bilirubin is n ot recommended forpatients undergoing treatment with eltrombopag (Promacta)due to the potential for falsely elevated results. ALTI 57 U/L 6-54 [facility] Patients taking Sulfasalazine and/or Sul fapyridine may havefalsely depressed ALT levels. Patients should be drawn forALT before the initial administration of either drug. AST 31 U/L 6-38 [facility] Patients taking Sulfasalazine and/or Sul fapyridine may havefalsely depressed AST levels. Patients should be drawn forAST before the initial administration of either drug. ID Date Data Source [id number] 01/17/2021 10:24:00 AM EDT [address] PROGRESS NOTEPATIENT NAME: YARELI HATCH PHYSICIAN: BROOKLYN ONEILL MDAUTHOR: Lana Aquino. DATE: 01/03/21 MR#: [id number] NOTE DATE: 01/17/21 RM#: [id number] TIME: 1036 [...] to change to Abilify. After further discussion siri made the choice to stay on her Latuda. She denies having aheadache yesterday. She denies experiencing any ill side effects from herpsychotropic medications and she also denies having any physical complaints.He said she spoke with her intensive insurance case manager yesterday, Eve and theycompleted the enrollment paperwork required the intensive case managementprogram. She also said she spoke with Lorraine Regarding a bed at [facility] andaccording to the director of the [...] rce(s) Supporting Document(s) ID Date Data Source [id number] 01/16/2021 01:40:00 PM EDT [address] HEALTH PROGRESS NOTEPATIENT NAME: YARELI HATCH PHYSICIAN: BROOKLYN ONEILL MDAUTHOR: Lana Aquino. DATE: 01/03/21 MR#: [id number] NOTE DATE: 01/16/21 RM#: [id number] TIME: 1413 [...] Shortly afterthe meeting she approached Gloria her flight operation coordinator asking to be put onthe Abilify [...] and maintain safety. Await bed availability at [facility] as in accordancewith her AOT. [...] rce(s) Supporting Document(s) ID Date Data Source [id number] 01/16/2021 10:03:00 AM EDT [facility] Exam Number: [id number] Reported By: - JEREMIAH PEOPLES MD Signed By: JEREMIAH PEOPLES MD Name Value Range Interpretation Code Description Data Stephanie rce(s) Supporting Document(s) ID Date Data Source [id number] 01/15/2021 11:23:00 AM EDT [address] HEALTH PROGRESS NOTEPATIENT NAME: YARELI HATCH PHYSICIAN: BROOKLYN ONEILL MDAUTHOR: Lana Aquino. DATE: 01/03/21 MR#: [id number] NOTE DATE: 01/15/21 RM#: [id number] TIME: 1136 is a 20-year-old white female.CC/Hx Present Illness"I overdosed"Events Since Last EntryMickayla met with her treatment team today and [...] wait for a bed tobecome available at [facility] as per her AOTDATE SIGNED: 01/15/21 Electronically SignedTIME SIGNED: 1136 DYLAN RIBEIRO Name Value Range Interpretation Code Description Data Stephanie rce(s) Supporting Document(s) ID Date Data Source [id number] 01/14/2021 03:17:00 PM EDT [address] [address]PMJXKD HEALTH PROGRESS NOTEPATIENT NAME: YARELI HATCH CATTENGIOVANNY PHYSICIAN: BROOKLYN ONEILL MDAUTHOR: Gema WHITE,Lana. DATE: 01/03/21 MR#: [id number] NOTE DATE: 01/14/21 RM#: 320EVALUATION TIME: 1523 [...] 01/14/21 Electronically SignedTIME SIGNED: 1523 DYLAN - MAXIMILIAN-Janette RIBEIRO Name Value Range Interpretation Code Description Data [facility] Supporting Document(s) ID Date Data Source [id number] 01/11/2021 10:27:00 AM EDT [address] [address]ILGSWF HEALTH PROGRESS NOTEPATIENT NAME: YARELI HATCH PHYSICIAN: BROOKLYN ONEILL, MDAUTHOR: Alfred SMITH,KitaarOlinda. DATE: 01/03/21 MR#: [id number] NOTE DATE: 01/11/21 RM#: 320EVALUATION TIME: 1038 [...] rce(s) Supporting Document(s) ID Date Data Source [id number] 01/10/2021 11:17:00 AM EDT [address] HEALTH PROGRESS NOTEPATIENT NAME: YARELI HATCH PHYSICIAN: BROOKLYN ONEILL MDAUTHOR: Lana Aquino. DATE: 01/03/21 MR#: [id number] NOTE DATE: 01/10/21 RM#: 320EVALUATION TIME: 1121 [...] rce(s) Supporting Document(s) ID Date Data Source [id number] 01/09/2021 03:23:00 PM EDT [address] [address]HEQABQ HEALTH PROGRESS NOTEPATIENT NAME: YARELI HATCH CATSALVADOR PHYSICIAN: BROOKLYN ONEILL MDAUTHOR: Gema WHITE,DylanADM. DATE: 01/03/21 MR#: [id number] NOTE DATE: 01/09/21 RM#: 320EVALUATION TIME: 1527 is a 20-year-old white female.CC/Hx Present Illness"I overdosed"Events Since Last EntryYareli met with treatment team today and she presented overly bright. Shetalked about her bath last night that she took with staff in the [employer]. She expressed excitement regarding this as this [...] and [facility]. As we [...] rce(s) Supporting Document(s) ID Date Data Source [id number] 01/09/2021 08:36:00 AM EDT [place] [address]MENTAL HEALTH PROGRESS NOTEPATIENT NAME: YARELI HATCH PHYSICIAN: BROOKLYN ONEILL MDAUTHOR: Gema WHITE,Lana. DATE: 01/03/21 MR#: [id number] NOTE DATE: 01/09/21 RM#: 320EVALUATION TIME: 908 AddendumSubjectiveIdentificationThisukumar is a 20-year-old white female.CC/Hx Present Illness"I [...] in process and awaitingfor bed availability at [facility].Assessment/PlanDiagnosis1. Suicide attemptStatus Acute2. Major depressive disorderStatus Chronic3. Bipolar affective disorderStatus Chronic4. Borderline personality disorderStatus Chronic5. Obesity, morbidStatus ChronicCoordination of care provided with nursing staffRisk/benefits discussed side effectsADDENDUM: Dylan Aquino on 01/09/21 at 0926progress note is for 01/08/2021ATE SIGNED: 01/09/21 Electronically SignedTIME SIGNED: 908 DYLAN RIBEIRO Name Value Range Interpretation Code Description Data Stephanie rce(s) Supporting Document(s) ID Date Data Source [id number] 01/07/2021 02:35:00 PM EDT [place] [address]MENTAL HEALTH PROGRESS NOTEPATIENT NAME: MAMIEYARELI PHYSICIAN: BROOKLYN ONEILL MDAUTHOR: Surendra SMITH,P.ADM. DATE: 01/03/21 MR#: [id number] NOTE DATE: 01/07/21 RM#: 320EVALUATION TIME: 1436 is a 20-year-old white female.CC/Hx Present Illness"I overdosed"Events Since Last EntryYareli was seen today along with the flight operation coordinator, Gloria, and a PAstudent from [facility]. She believes herself to be Romel today. Shestates she is doing well. She expressed her interest in AOT for 6 months. Iinformed the patient that we have talked to Omi Tovar about her interest.Patient states she just want to leave the place and go outside. Patient doesnot have any address to discharge to. She states [facility]. Patient was informed that there are beds open [place] [facility] and[place] could be transferred there. She was [...] rce(s) Supporting Document(s) ID Date Data Source [id number] 01/06/2021 02:26:00 PM EDT [address] HEALTH PROGRESS NOTEPATIENT NAME: YARELI HATCH CATTENGIOVANNY PHYSICIAN: BROOKLYN ONEILL MDAUTHOR: Surendra SMITH,P.ADM. DATE: 01/03/21 MR#: [id number] NOTE DATE: 01/06/21 RM#: 320EVALUATION TIME: 1427 is a 20-year-old white female.CC/Hx Present Illness"I overdosed"Events Since Last EntryYareli was seen today along with the flight operation coordinator, Gloria. Patientwas brought to the ER by rescue squad due to overdose. [facility] [place], which then she was brought to the [facility] in [facility]. She is on waiting list for TLS in [place] but isunsure how long will it take. She states she drank a lot of coffee which causedher to be awake whole night and she spent more than 24 hours awake. She gotoverwhelmed and overdosed on Ibuprofen and Prove ntil as she was annoyed by acase grain oilseed or pasture farm manager who was trying to get her [...] 01/06 0859Resp 18 01/06 0634Current MedicationsMiscellaneous Read [id number] NANicotine (Nicorette) 2 MG Q2HPRN PRN POCarbamide [...] plan and housing. We are working with [facility] and other housingagencies such as [facility] for supportive housing options.Portions of this section were scribed by Shell Ariza on 01/10/21 at 1643DATE SIGNED: 01/10/21 Electronically SignedTIME SIGNED: 1648 BROOKLYN ONEILL MD Name Value Range Interpretation Code Description Data Stephanie rce(s) Supporting Document(s) ID Date Data Source [id number] 01/04/2021 09:49:00 AM EDT [address] PSYCHIATRIC ASSESSMENTPATIENT NAME: YARELI HATCH MR#: [id number] PHYSICIAN: AMADA SIMON MDAUTHOR: Amada Simon MD DATE: 01/03/21 RM#: 3RDHistoryIdentificationPatient is a 20-year-old white female who was brought to [facility] ED by rescuesquad.Chief Complaint"I overdosed"Reason for AdmissionPatient overdosed on Ibuprofen and Proventil. Patient is not sure why she didit, but she also states that it may have been a suicidal attempt. Her sleep isok. Appetite is good. She has a hx of impulse control problem. She has beenfeeling hopelese, helpless and depressed at times. She was living at [facility]. Shehas been been asked by the [facility] not to return back with them, so she is homelessat this time.History of Presenting IllnessPatient was brought to ED by rescue squad due to overdose. [facility], which then she was brought to the [facility] in [facility]. Sheis on the waiting list for TLS in [place] but is unsure on how long it willtake. Patient has a long history of suicidal attempts, and also has hadnumerous inpatient admissions to this facility and to other facilities throughout [facility].Portions of this section were scribed [...] of Knowledge: awareness of low normal rangeAdditional Tixok82-bgvo-eyv white female who was cooperative during the [...] rce(s) Supporting Document(s) ID Date Data Source [id number] 01/03/2021 05:30:00 PM EDT [facility] HEALTH HISTORY AND PHYSICALPATIENT NAME: YARELI HATCH MR#: [id number] PHYSICIAN: AMADA SIMON MDAUTHOR: Theresa Melchor DATE: [...] MeanPulse Ox 99 99 99O2 DeliveryO2 Flow DufpHoX7Ocesokmy ExaminationGeneral Appearance no acute distress, conversant, face [...] CloudyUrine pH (5.0 - 8.0) 6.0Ur Specific [place] (1.010 - 1.025) 1.033 HUrine Protein (Negative) 2+Urine Ketones (NEGATIVE) TraceUrine Blood (NEGATIVE) NegativeUrine Nitrite (Negative) NegativeUr Bilirubin Confirm (NEGATIVE) NegativeUrine Urobilinogen (0.2 - 1.0 mg/dL) 1.0Urine Leukocytes (Negative) NegativeUrine RBC (NONE SEEN) 0-2 RBCs/HPFUrine WBC (NONE SEEN) 0-2 WBCs/HPFUrine Crystals (NONE SEEN) MODERATE AMORPHOUSUrine Bacteria (NONE SEEN) ModerateUrine Glucose (NEGATIVE) Pllamtbx17/028215XopsizeyTSBGU-48 (CORDELL) (NEGATIVE) JZSIFJSKUqgsdteciiwn87/24 1602 URINE,CC: Urine Culture - RESAssessment/PlanDiagnosis/Problem1. Suicide attemptStatus Acute2. Major depressive disorderStatus Chronic3. Bipolar affective disorderStatus Chronic4. Borderline personality disorderStatus Chronic5. Obesity, morbidStatus Finishing Room Supervisor nicAdditional NotesWill defer psychiatric problems to our psychiatry teamPatient denies medical issues at present and she has been cleared medically.Resuscitation status Full codePlan discussed with patientCase discussed with nursing staffCopies ToCopies to Family Provider: NO,ONEDATE SIGNED: 01/03/21 Electronically SignedTIME SIGNED: 1802 THERESA MELCHOR Name Value Range Interpretation Code Description Data Stephanie rce(s) Supporting Document(s) ID Date Data Source [id number] 01/03/2021 12:52:00 PM EDT [facility] Name Value Range Interpretation Code Description Data [facility] rce(s) Supporting Document(s) LCOVID-19, CORDELL NEGATIVE [facility] This lab was ordered by [facility] and reported by [facility]. ID Date Data Source [id number] 01/03/2021 01:43:00 PM EDT [facility] [place] Name Value Range Interpretation Code Description Data [facility] Supporting Document(s) COVID-19, CORDELL NEGATIVE NEGATIVE [facility] Methodology: Isothermal Nucleic Acid Amp lification [...] Emergency Use Authorization. ID Date Data Source [id number] 01/02/2021 04:50:00 PM EDT [facility] Name Value Range Interpretation Code Description Data [facility] Supporting Document(s) PCP VISTA NEG NEGATIVE [facility] MINIMUM LEVEL OF DETECTION IS 25 ng/ml BENZODIAZEPINES NEG NEGATIVE [facility] al MINIMUM LEVEL OF DETECTION IS 200 ng/ml COCAINE VISTA NEG NEGATIVE [facility] MINIMUM LEVEL OF DETECTION IS 300 ng/ml AMPHETAMINES NEG NEGATIVE [facility] al MINIMUM LEVEL OF DETECTION IS 1000 ng/ml BARBITURATES NEG NEGATIVE [facility] CUTOFF CONCENTRATION IS 200 ng/ml CANNABINOIDS NEG NEGATIVE [facility] al CUTOFF CONCENTRATION IS 50 ng/ml METHADONE VISTA NEG NEGATIVE [facility] al MINIMUM LEVEL OF DETECTION IS 300 ng/ml OPIATE VISTA NEG NEGATIVE [facility] MINIMUM DETECTION LEVEL IS 300 ng/ml ID Date Data Source [id number] 01/02/2021 04:36:00 PM EDT [facility] Urine Bilirubin test must be confirmed w ith Ictotest Method Urine Bilirubin test must be confirmed w ith Ictotest Method Name Value Range Interpretation Code Description Data Stephanie rce(s) Supporting Document(s) URINE COLOR DK YELLOW N [facility] UAPR Cloudy N [facility] UGLU Negative NEGATIVE N [facility] URINE BILIRUBIN Negative NEGATIVE [facility] UKET Trace NEGATIVE [facility] USG 1.033 1.010-1.025 H [facility] UBLO Negative NEGATIVE [facility] UpH 6.0 5.0-8.0 N [facility] UPRO 2+ Negative [facility] UUB 1.0 mg/dL 0.2-1.0 [facility] UNIT Negative Negative [facility] ULEU Negative Negative [facility] ID Date Data Source [id number] 01/02/2021 04:36:00 PM EDT [facility] [place] Urine Bilirubin test must be confirmed w ith Ictotest Method Urine Bilirubin test must be confirmed w ith Ictotest Method Name Value Range Interpretation Code Description Data Stephanie rce(s) Supporting Document(s) URINE RBC 0-2 RBCs/HPF NONE SEEN [facility] URINE WBC 0-2 WBCs/HPF NONE SEEN [facility] URINE BACTERIA Moderate NONE SEEN [facility] l A URINE CULTURE HAS BEEN ADDED TO THIS S PECIMEN URINE EPI. Moderate NONE SEEN [facility] URINE CRYSTAL MODERATE AMORPHOUS NONE SEEN [facility] ID Date Data Source [id number] 01/02/2021 04:00:00 PM EDT [facility] [place] Name Value Range Interpretation Code Description Data Stephanie rce(s) Supporting Document(s) WBC 9.40 x10E3/uL 4.0-10.5 [facility] RBC 4.29 x10E6/uL 4.20-5.40 [facility] Hemoglobin 13.0 g/dL 12.0-16.0 [facility] Hematocrit 38.1 % 37.0-47.0 [facility] MCV 88.8 fL 81.0-99.0 [facility] MCH 30.3 pg 27.0-31.0 [facility] MCHC 34.1 g/dL 32.7-35.6 [facility] RDW 12.0 % 11.5-14.0 [facility] Platelet count 278 x10E3/uL 150-450 N [facility] ital MPV 9.1 fl 6.9-9.5 [facility] Neutrophils 58.6 % 34-64 [facility] Lymphocytes 32.4 % 25-45 [facility] Monocytes 8.1 % 1.7-10.6 [facility] Eosinophils 0.4 % 0.4-7.0 [facility] Basophils 0.2 % 0.1-2.0 [facility] Imm. Gran. 0.3 % 0.1-2.0 [facility] Abs. Neutro. 5.50 x10E3/uL 1.2-7.6 N [facility] [place] Abs. Lymph. 3.05 x10E3/uL 1.0-3.5 [facility] Abs. Stone. 0.76 x10E3/uL 0.1-1.0 [facility] Abs. Eosin. 0.04 x10E3/uL 0.1-0.7 L [facility] Abs. Baso. 0.02 x10E3/uL 0.0-0.1 [facility] Abs. Imm. Gran. 0.03 x10E3/uL 0.0-0.1 N [facility] spital ANRBC% 0 % 0 [facility] ID Date Data Source [id number] 01/02/2021 05:13:00 PM EDT [facility] [place] Name Value Range Interpretation Code Description Data Stephanie rce(s) Supporting Document(s) SALICYLATE < 1.7 mg/dL 0.0-20.0 N [facility] ID Date Data Source [id number] 01/02/2021 05:13:00 PM EDT [facility] [place] Name Value Range Interpretation Code Description Data Stephanie rce(s) Supporting Document(s) ACETAMINOPHEN < 2.0 ug/mL 0-30 [facility] ID Date Data Source [id number] 01/02/2021 05:13:00 PM EDT [facility] [place] Name Value Range Interpretation Code Description Data Stephanie rce(s) Supporting Document(s) HCG QUAL SERUM Negative [facility] ID Date Data Source [id number] 01/02/2021 05:13:00 PM EDT [facility] [place] Name Value Range Interpretation Code Description Data Stephanie rce(s) Supporting Document(s) ETOH NONE DETECTED [facility] NONE DETECTED ID Date Data Source [id number] 01/02/2021 05:13:00 PM EDT [facility] [place] Name Value Range Interpretation Code Description Data Stephanie rce(s) Supporting Document(s) GLU 119 mg/dL 70-110 H [facility] Patients taking Sulfasalazine may have f alsely depressedGlucose levels. Patients taking Sulfapyridine may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 to that lady that if she wantsto call the precinct police sergeant and press charges on Yareli, which in [...] rce(s) Supporting Document(s) ID Date Data Source [id number] 12/25/2020 04:38:00 PM EDT [address] HEALTH PROGRESS NOTEPATIENT NAME: MAMIE,YARELI CATTENGIOVANNY PHYSICIAN: BROOKLYN ONEILL MDAUTHOR: Surendra SMITH,P.ADM. DATE: 10/31/20 MR#: [id number] NOTE DATE: 12/25/20 RM#: 310EVALUATION TIME: 1644 [...] rce(s) Supporting Document(s) ID Date Data Source [id number] 12/24/2020 06:20:00 PM EDT [place] [id number] HEALTH PROGRESS NOTEPATIENT NAME: MAMIEYARELI CATTENGIOVANNY PHYSICIAN: BROOKLYN ONEILL MDAUTHOR: Surendra SMITH,P.ADM. DATE: 10/31/20 MR#: [id number] NOTE DATE: 12/24/20 RM#: 310EVALUATION TIME: 1819 is 20-year-old female, currently single, past psych historyof bipolar disorder, poor impulse control and borderline personality disorderChief complaint concern about her ability to maintain safety and possiblesuicidal thoughtsEvents Since Last EntryYareli was seen today along with the flight operation coordinator, Gloria, and a PAstudent from [employer]. She was giggly today. She was laughingcontinuously [...] She states she feels she is in [facility]. Ieducated the patient that she is always focused on her rights and she does notfocus on herself in her responsibilities. She inquired about her discharge. Iadvised the patient that she will be discharge after bed opening at [place]". She stated she would like to go to the court for her discharge. Patient madea statement "I am 20 years old. I can live my life the way I want without beingtold by a psychiatrist about how to live it, [facility] I advise the patient that going to [...] awaiting for the bed to open in [facility] at which point she will betransferred to [facility] in [place].Portions of this section were scribed by Shell Ariza on 12/24/20 at 1821DATE SIGNED: 12/24/20 Electronically SignedTIME SIGNED: 1828 BROOKLYN ONEILL MD Name Value Range Interpretation Code Description Data Stephanie rce(s) Supporting Document(s) ID Date Data Source [id number] 12/23/2020 02:39:00 PM EDT [place], [place] [address]MENTAL HEALTH PROGRESS NOTEPATIENT NAME: YARELI HATCH CATSALVADOR PHYSICIAN: BROOKLYN ONEILL MDAUTHOR: Surendra SMITH,P.ADM. DATE: 10/31/20 MR#: [id number] NOTE DATE: 12/23/20 RM#: 310EVALUATION TIME: 1439 is 20-year-old female, currently single, past psych historyof bipolar disorder, poor impulse control and borderline personality disorderChief complaint concern about her ability to maintain safety and possiblesuicidal thoughtsEvents Since Last EntryYareli was seen today along with the flight operation coordinator, Chloe, and aPA student from [employer]. Her mood is better today. She did not showany sign of agitation or irritation. Patient stated she is not functioning wellright now, and she feels nervous. She expressed that she feels more depressedwhen she is alone and independent, which shows that she is not ready to beplaced in [facility] in [place]. Patient also talked about the AOT. She [...] to agree with her [facility] We explained to her that is not the case, and it will work if sheputs in her efforts to make it happen and not try to sabotage and destroy theplan like she always does. I increased her Latuda today.Portions of this section were scribed by Shell Ariza on 12/23/20 at 1506DATE SIGNED: 12/23/20 Electronically SignedTIME SIGNED: 1408 BROOKLYN ONEILL MD Name Value Range Interpretation Code Description Data Stephanie rce(s) Supporting Document(s) ID Date Data Source [id number] 12/20/2020 05:13:00 PM EDT [address] [address]KAN HEALTH PROGRESS NOTEPATIENT NAME: YARELI HATCH CATTENGIOVANNY PHYSICIAN: BROOKLYN ONEILL MDAUTHOR: Surendra SMITH,P.ADM. DATE: 10/31/20 MR#: [id number] NOTE DATE: 12/20/20 RM#: 310EVALUATION TIME: 1714 is 20-year-old female, currently single, past psych historyof bipolar disorder, poor impulse control and borderline personality disorderChief complaint concern about her ability to maintain safety and possiblesuicidal thoughtsEvents Since Last EntryKenneth was seen today along with the flight operation coordinator, Cata, and a PAstudent from [employer]. She states she is not in favor of beingplaced in [facility]. She sates [facility] because she needs more structured place like community residenceand not an apartment residence as she cannot live independently. Patient eugene talked to Dejon who works in [facility], and he asked her questionslike if she knows how to cook and clean because she has to do all that byherself in [facility]. She states she will be starving [...] can find other community residence better than [facility]. Iadvised the patient that this is [...] that as she is under jurisdiction of [facility] and is under AOT theycannot do that. Patient states she feels [place] would be a better place forher to stay as compared to [place]. I Informed the patient that Residenciesand institutions in [place] has also rejected her. I also explained to thepatient that I will be happy to transfer her to [place] if she is acceptedthere. I told the patient that I will talk to the treatment team to see ifthere is any chance if she gets placed in [facility] in [place]. I also counselledthe patient that she is [...] rce(s) Supporting Document(s) ID Date Data Source [id number] 12/19/2020 02:18:[address] [facility] [place] [address] HEALTH PROGRESS NOTEPATIENT NAME: YARELI HATCH CATSALVADOR PHYSICIAN: BROOKLYN ONEILL MDAUTHOR: Surendra SMITH,P.ADM. DATE: 10/31/20 MR#: [id number] NOTE DATE: 12/19/20 RM#: 310EVALUATION TIME: 1420 is 20-year-old female, currently single, past psych historyof bipolar disorder, poor impulse control and borderline personality disorderChief complaint concern about her ability to maintain safety and possiblesuicidal thoughtsEvents Since Last EntryYareli was seen today along with the flight operation coordinator, Cata, and a PAstudent from [employer]. She was in irritated mood today. She [...] section were scribed by Shell Ariza on 06/10/21 at 1450ObjectiveVital SignsVital Signs-LastResult Date TimePulse Ox [...] rce(s) Supporting Document(s) ID Date Data Source [id number] 12/18/2020 01:22:00 PM EDT [address] HEALTH PROGRESS NOTEPATIENT NAME: YARELI HATCH CATTENGIOVANNY PHYSICIAN: BROOKLYN ONEILL MDAUTHOR: Surendra SMITH,P.ADM. DATE: 10/31/20 MR#: [id number] NOTE DATE: 12/18/20 RM#: 310EVALUATION TIME: 1559 is 20-year-old female, currently single, past psych historyof bipolar disorder, poor impulse control and borderline personality disorderChief complaint concern about her ability to maintain safety and possiblesuicidal thoughtsEvents Since Last EntryYareli was seen today along with the flight operation coordinator, Gloria, and a PAstudent from [employer]. Patient seems upset today. She calmlyexpressed that [...] psychosis. Yareli was also educated about terminal operations manager therapy andcounselling.Subsequently, during the later part of [...] thinking.Portions of this section were scribed by hSell Ariza on 12/18/20 at 1638Assessment/PlanDiagnosis1. Suicide attemptStatus [...] rce(s) Supporting Document(s) ID Date Data Source [id number] 12/17/2020 01:39:00 PM EDT [address] HEALTH PROGRESS NOTEPATIENT NAME: MAMIEYARELI [facility] PHYSICIAN: BROOKLYN ONEILL MDAUTHOR: Surendra SMITH,P.ADM. DATE: 10/31/20 MR#: [id number] NOTE DATE: 12/17/20 RM#: 310EVALUATION TIME: 1339 is 20-year-old female, currently single, past psych historyof bipolar disorder, poor impulse control and borderline personality disorderChief complaint concern about her ability to maintain safety and possiblesuicidal thoughtsEvents Since Last EntryYareli was seen today along with the flight operation coordinator, Gloria, and a PAstudent from [employer]. She is not satisfied with the plan of beingtransferred to [facility]. She states she feels she is forced to go to [facility], and shedoes not want to be placed there. Patient was explained she is not forced, butno other institution is ready to accept her and therefore, [facility] is her onlyoption. Patient states she does not want to go to [facility] at any cost as she cannotstand to their programs. She continues to sabotage her treatment plan. She alsostates she will not open to any therapist ever; therefore, this discharge planwill not work. Subsequently, she agreed to be transferred to [facility]. She wasinformed that [facility] outpatientservices. She did [...] member of the teamduring the meeting with [facility] that [facility] will be the best program for her.Portions of this section were scribed by Shell Ariza on 12/17/20 at 1616DATE SIGNED: 12/17/20 Electronically SignedTIME SIGNED: 1619 BROOKLYN ONEILL MD Name Value Range Interpretation Code Description Data Stephanie rce(s) Supporting Document(s) ID Date Data Source [id number] 12/16/2020 01:51:00 PM EDT [place], [place] [address]MENTAL HEALTH PROGRESS NOTEPATIENT NAME: YARELI HATCH CATTENGIOVANNY PHYSICIAN: BROOKLYN ONEILL MDAUTHOR: Surendra SMITH,P.ADM. DATE: 10/31/20 MR#: [id number] NOTE DATE: 12/16/20 RM#: 310EVALUATION TIME: 1351 is 20-year-old female, currently single, past psych historyof bipolar disorder, poor impulse control and borderline personality disorderChief complaint concern about her ability to maintain safety and possiblesuicidal thoughtsEvents Since Last EntryYareli was seen today along with the flight operation coordinator, Gloria, and a PAstudent from [employer]. She continues to think she is [place]. [...] rce(s) Supporting Document(s) ID Date Data Source [id number] 12/13/2020 03:30:00 PM EDT [place], [place] [address]MENTAL HEALTH PROGRESS NOTEPATIENT NAME: YARELI HATCH CATSALVADOR PHYSICIAN: BROOKLYN ONEILL MDAUTHOR: Surendra SMITH,P.ADM. DATE: 10/31/20 MR#: [id number] NOTE DATE: 12/13/20 RM#: 310EVALUATION TIME: 1531 is 20-year-old female, currently single, past psych historyof bipolar disorder, poor impulse control and borderline personality disorderChief complaint concern about her ability to maintain safety and possiblesuicidal thoughtsEvents Since Last EntryYareli was seen today along with the flight operation coordinator, Gloria, and a PAstudent from [employer]. She was in better mood today. Patient [...] Patient agreed upon during the meeting with [facility] that she will beaccepted to [facility] or as a matter of fact she [...] rce(s) Supporting Document(s) ID Date Data Source [id number] 12/12/2020 02:53:00 PM EDT [place] [address]MENTAL HEALTH PROGRESS NOTEPATIENT NAME: YARELI HATCH PHYSICIAN: BROOKLYN ONEILL MDAUTHOR: Surendra SMITH,P.ADM. DATE: 10/31/20 MR#: [id number] NOTE DATE: 12/12/20 RM#: 310EVALUATION TIME: 1453 is 20-year-old female, currently single, past psych historyof bipolar disorder, poor impulse control and borderline personality disorderChief complaint concern about her ability to maintain safety and possiblesuicidal thoughtsEvents Since Last EntryYareli was seen today along with the flight operation coordinator, Gloria, and a PAstudent from [employer]. She reports nightmare. She stated sheexperienced headache [...] bestarted on Latuda.We had a meeting with [facility] and other agencies. In the meantime, we agreed onthat she will go to [facility] when a bed opens up after the AOT is completed. Flako also get intensive case management and she will also receive [facility] teamhelp.Portions of this section were scribed [...] rce(s) Supporting Document(s) ID Date Data Source [id number] 12/11/2020 01:15:00 PM EDT [place] [address]MENTAL HEALTH PROGRESS NOTEPATIENT NAME: YARELI HATCH PHYSICIAN: BROOKLYN ONEILL MDAUTHOR: Surendra SMITH,P.ADM. DATE: 10/31/20 MR#: [id number] NOTE DATE: 12/11/20 RM#: 315EVALUATION TIME: 1316 is 20-year-old female, currently single, past psych historyof bipolar disorder, poor impulse control and borderline personality disorderChief complaint concern about her ability to maintain safety and possiblesuicidal thoughtsEvents Since Last EntryKenneth was seen today along with the flight operation coordinator, Gloria. Patientwas irritated today. She was [...] side effectsAdditional NotesPlan:We have a meeting with [facility] tomorrow regarding her placement, but so far, mostinstitutions we have contacted have either denied her or unwilling to accepther. Will discuss this further with [facility] tomorrow.Portions of this section were scribed by Shell Ariza on 12/11/20 at 1717DATE SIGNED: 12/11/20 Electronically SignedTIME SIGNED: 1718 BROOKLYN ONEILL MD Name Value Range Interpretation Code Description Data Stephanie rce(s) Supporting Document(s) ID Date Data Source [id number] 12/10/2020 04:02:00 PM EDT [address] HEALTH PROGRESS NOTEPATIENT NAME: YARELI HATCH CATTENGIOVANNY PHYSICIAN: BROOKLYN ONEILL MDAUTHOR: Surendra SMITH,P.ADM. DATE: 10/31/20 MR#: [id number] NOTE DATE: 12/10/20 RM#: 309EVALUATION TIME: 1816 is 20-year-old female, currently single, past psych historyof bipolar disorder, poor impulse control and borderline personality disorderChief complaint concern about her ability to maintain safety and possiblesuicidal thoughtsEvents Since Last EntryYareli was seen today along with the flight operation coordinator, Gloria. She wasvery irritable with the [...] night. She gave a suicidenote to the flight operation coordinator indicating that she wants to end [...] facility. We have a meeting with the [facility] on to discussplacement options for her.Portions [...] have a meeting coming up onThursday with [facility] to discuss about her placement.Portions of this section were scribed by Shell Ariza on 12/10/20 at 1814DATE SIGNED: 12/10/20 Electronically SignedTIME SIGNED: 1817 BROOKLYN ONEILL MD Name Value Range Interpretation Code Description Data Stephanie rce(s) Supporting Document(s) ID Date Data Source [id number] 12/06/2020 02:20:00 PM EDT [address] HEALTH PROGRESS NOTEPATIENT NAME: YARELI HATCH CATSALVADOR PHYSICIAN: BROOKLYN ONEILL MDAUTHOR: Surendra SMITH,P.ADM. DATE: 10/31/20 MR#: [id number] NOTE DATE: 12/06/20 RM#: 310EVALUATION TIME: 1421 is 20-year-old female, currently single, past psych historyof bipolar disorder, poor impulse control and borderline personality disorderChief complaint concern about her ability to maintain safety and possiblesuicidal thoughtsEvents Since Last EntryYareli was seen today along with the flight operation coordinator, Gloria, and a PAstudent from [facility] [employer] [facility]. There is no improvement in her. Patient [...] working on a plan to meet with [facility] and Lorraine to findappropriate place and options. Unfortunately, many supportive housing optionsare refusing to take her because of her past history with them.Portions of this section were scribed by Shell Ariza on 12/06/20 at 1457DATE SIGNED: 12/06/20 Electronically SignedTIME SIGNED: 1505 BROOKLYN ONEILL MD Name Value Range Interpretation Code Description Data Stephanie rce(s) Supporting Document(s) ID Date Data Source [id number] 12/05/2020 03:10:00 PM EDT [address] HEALTH PROGRESS NOTEPATIENT NAME: YARELI HATCH PHYSICIAN: BROOKLYN ONEILL MDAUTHOR: Surendra SMITH,P.ADM. DATE: 10/31/20 MR#: [id number] NOTE DATE: 12/05/20 RM#: 310EVALUATION TIME: 151 is 20-year-old female, currently single, past psych historyof bipolar disorder, poor impulse control and borderline personality disorderChief complaint concern about her ability to maintain safety and possiblesuicidal thoughtsEvents Since Last EntryMickenjiala was seen today along with the flight operation coordinator, Gloria. Patientstates she had bad dream [...] not save for discharge. Her meeting with [facility] hasbeen postponed until next week. At [...] rce(s) Supporting Document(s) ID Date Data Source [id number] 12/04/2020 03:07:00 PM EDT [place] [id number] HEALTH PROGRESS NOTEPATIENT NAME: JELENA HATCHKAYLA CATTENGIOVANNY PHYSICIAN: BROOKLYN ONEILL MDAUTHOR: Surendra SMITH,P.ADM. DATE: 10/31/20 MR#: [id number] NOTE DATE: 12/04/20 RM#: 310EVALUATION TIME: 1508 is 20-year-old female, currently single, past psych historyof bipolar disorder, poor impulse control and borderline personality disorderChief complaint concern about her ability to maintain safety and possiblesuicidal thoughtsEvents Since Last EntryYareli was seen today along with the flight operation coordinator, Gloria, and a PAstudent from [facility]. She refused to see me today. I [...] NotesPlan:We are still planning on meeting with [facility] regarding her.Portions of this section were scribed by Shell Ariza on 12/04/20 at 1528DATE SIGNED: 12/04/20 Electronically SignedTIME SIGNED: 1531 BROOKLYN ONEILL MD Name Value Range Interpretation Code Description Data Stephanie rce(s) Supporting Document(s) ID Date Data Source [id number] 12/03/2020 01:41:00 PM EDT [address] HEALTH PROGRESS NOTEPATIENT NAME: MAMIEYARELI PHYSICIAN: BROOKLYN ONEILL MDAUTHOR: Surendra SMITH,P.ADM. DATE: 10/31/20 MR#: [id number] NOTE DATE: 12/03/20 RM#: 310EVALUATION TIME: 1346 is 20-year-old female, currently single, past psych historyof bipolar disorder, poor impulse control and borderline personality disorderChief complaint concern about her ability to maintain safety and possiblesuicidal thoughtsEvents Since Last EntryYareli was seen today along with the flight operation coordinator, Gloria. She isvery angry and agitated. [...] rce(s) Supporting Document(s) ID Date Data Source [id number] 12/03/2020 02:56:00 PM EDT [address] HEALTH PROGRESS NOTEPATIENT NAME: MAMIEYARELIZOIE YA PHYSICIAN: BROOKLYN ONEILL MDAUTHOR: Surendra SMITH,P.ADM. DATE: 10/31/20 MR#: [id number] NOTE DATE: 12/02/20 RM#: 310EVALUATION TIME: 1457 is 20-year-old female, currently single, past psych historyof bipolar disorder, poor impulse control and borderline personality disorderChief complaint concern about her ability to maintain safety and possiblesuicidal thoughtsEvents Since Last EntryYareli Was seen today along with the flight operation coordinator, Gloria, and a PAstudent from [facility]. She was in better mood. She was [...] meeting schedule for her to meet with [facility] as well as Lorraine Hoganregarding her as the placement continues to be a problem.Portions of this section were scribed by Shell Ariza on 12/03/20 at 1456DATE SIGNED: 12/04/20 Electronically SignedTIME SIGNED: 1533 BROOKLYN ONEILL MD Name Value Range Interpretation Code Description Data Stephanie rce(s) Supporting Document(s) ID Date Data Source [id number] 11/29/2020 04:02:00 PM EDT [place] [id number] HEALTH PROGRESS NOTEPATIENT NAME: YARELI HATCH CATTENGIOVANNY PHYSICIAN: BROOKLYN ONEILL MDAUTHOR: Surendra SMITH,P.ADM. DATE: 10/31/20 MR#: [id number] NOTE DATE: 11/29/20 RM#: 310EVALUATION TIME: 1602 is 20-year-old female, currently single, past psych historyof bipolar disorder, poor impulse control and borderline personality disorderChief complaint concern about her ability to maintain safety and possiblesuicidal thoughtsEvents Since Last EntryYareli was seen today along with the flight operation coordinator, Gloria. She didnot allow the students [...] rce(s) Supporting Document(s) ID Date Data Source [id number] 11/28/2020 04:08:00 PM EDT [facility] [place] [id number] HEALTH PROGRESS NOTEPATIENT NAME: YARELI HATCH CATTENDING PHYSICIAN: BROOKLYN ONEILL MDAUTHOR: Surendra SMITH,P.ADM. DATE: 10/31/20 MR#: [id number] NOTE DATE: 11/28/20 RM#: 310EVALUATION TIME: 1624 is 20-year-old female, currently single, past psych historyof bipolar disorder, poor impulse control and borderline personality disorderChief complaint concern about her ability to maintain safety and possiblesuicidal thoughtsEvents Since Last EntryYareli was seen today along with the flight operation coordinator, Gloria, she didnot allow the student [...] and Lorraine to arrange a meeting with [facility] to discuss aboutany other option available for her. patient has refused for any medicationchanges.Portions of this section were scribed by Shell Ariza on 11/28/20 at 1622DATE SIGNED: 11/28/20 Electronically SignedTIME SIGNED: 1625 BROOKLYN ONEILL MD Name Value Range Interpretation Code Description Data Stephanie rce(s) Supporting Document(s) ID Date Data Source [id number] 11/27/2020 03:38:00 PM EDT [address] PROGRESS NOTEPATIENT NAME: YARELI HATCH CATSALVADOR PHYSICIAN: BROOKLYN ONEILL MDAUTHOR: Surendra SMITH,P.ADM. DATE: 10/31/20 MR#: [id number] NOTE DATE: 11/27/20 RM#: 310EVALUATION TIME: 1539 is 20-year-old female, currently single, past psych historyof bipolar disorder, poor impulse control and borderline personality disorderChief complaint concern about her ability to maintain safety and possiblesuicidal thoughtsEvents Since Last EntryYareli was seen today along with the flight operation coordinator, Gloria, and a PAstudent from [facility]. She is doing well. I was informed [...] insists thatI need to refer her to [facility]. But my concern is such things do not work becauseshe ends up coming back here day or 2 later. Will continue to work with OMHregarding her and look for more resources.Portions of t his section were scribed by Shell Ariza on 11/27/20 at 1648DATE SIGNED: 11/27/20 Electronically SignedTIME SIGNED: 165 BROOKLYN ONEILL MD Name Value Range Interpretation Code Description Data Stephanie rce(s) Supporting Document(s) ID Date Data Source [id number] 11/26/2020 02:11:00 PM EDT [address] HEALTH PROGRESS NOTEPATIENT NAME: YARELI HATCH PHYSICIAN: BROOKLYN ONEILL MDAUTHOR: Surendra SMITH,P.ADM. DATE: 10/31/20 MR#: [id number] NOTE DATE: 11/26/20 RM#: 310EVALUATION TIME: 1411 is 20-year-old female, currently single, past psych historyof bipolar disorder, poor impulse control and borderline personality disorderChief complaint concern about her ability to maintain safety and possiblesuicidal thoughtsEvents Since Last EntryYareli was seen today along with the flight operation coordinator, Gloria, and a PAstudent from [facility]. She was irritated and angry today. She [...] will be making SPOA referrals to other critical access hospital also. Yareli continued to express her [...] We are in pursuit of an appropriate usp or a safe dischargeoption for her. Ji Ng is coming here tomorrow, to do an intake [facility] her. Will also consider increasing her Zyprexa.Portions of this section were scribed by Shell Ariza on 11/26/20 at 1503DATE SIGNED: 11/26/20 Electronically SignedTIME SIGNED: 1507 BROOKLYN ONEILL MD Name Value Range Interpretation Code Description Data Stephanie rce(s) Supporting Document(s) ID Date Data Source [id number] 11/25/2020 02:44:00 PM EDT [facility] [place] [id number] HEALTH PROGRESS NOTEPATIENT NAME: YARELI HATCH CATTENGIOVANNY PHYSICIAN: BROOKLYN ONEILL MDAUTHOR: Surendra SMITH,P.ADM. DATE: 10/31/20 MR#: [id number] NOTE DATE: 11/25/20 RM#: 310EVALUATION TIME: 1444 is 20-year-old female, currently single, past psych historyof bipolar disorder, poor impulse control and borderline personality disorderChief complaint concern about her ability to maintain safety and possiblesuicidal thoughtsEvents Since Last EntryYareli was seen today along with the flight operation coordinator, Gloria, and a PAstudent from [facility]. She is doing the same. She does not show anysignificant improvement. Patient was informed that we are applying for [facility] for family care. I was informed [...] she has a history of being in [facility] [place].Portions of this section were [...] is making referral to Parul in [facility] [place].Portions of this section were scribed by Shell Ariza on 11/25/20 at 1926DATE SIGNED: 11/25/20 Electronically SignedTIME SIGNED: 1934 BROOKLYN ONEILL MD Name Value Range Interpretation Code Description Data Stephanie rce(s) Supporting Document(s) ID Date Data Source [id number] 11/22/2020 10:16:00 AM EDT [address] HEALTH PROGRESS NOTEPATIENT NAME: YARELI HATCH PHYSICIAN: BROOKLYN ONEILL MDAUTHOR: Colleen SMITH,DhruvADM. DATE: 10/31/20 MR#: [id number] NOTE DATE: 11/22/20 RM#: 310EVALUATION TIME: 1018 [...] to go and she might go to [facility] down the road as well.Discussed with the flight operation coordinator about treatment plan that patient iscurrently [...] rce(s) Supporting Document(s) ID Date Data Source [id number] 11/21/2020 01:41:[address] PM EDT [address] [id number] HEALTH PROGRESS NOTEPATIENT NAME: YARELI HATCH [facility] PH[facility]ICIAN: BROOKLYN ONEILL MDAUTHOR: Surendra SMITH,P.ADM. DATE: 10/31/20 MR#: [id number] NOTE DATE: 11/21/20 RM#: 310EVALUATION TIME: 1356 [...] [facility]. [facility] [...] unable to be placed in many [facility] such [facility] where she went to usp and then she signed out from theusp. Her prognosis remains guarded. She denied suicidal [...] be an appropriate candidate for 24hours supervised usp. She is not making progress. Her providers are alsoworking on finding a different placement for her. Will increase her Zyprexa andpropranolol.Portions of this section were scribed by Shell Ariza on 11/21/20 at 1357DATE SIGNED: 11/21/20 Electronically SignedTIME SIGNED: 1357 BROOKLYN ONEILL MD Name Value Range Interpretation Code Description Data Stephanie rce(s) Supporting Document(s) ID Date Data Source [id number] 11/20/2020 02:02:00 PM EDT [address] [id number] HEALTH PROGRESS NOTEPATIENT NAME: YARELI HATCH CATTENDING PHYSICIAN: BROOKLYN ONEILL MDAUTHOR: Surendra SMITH,P.ADM. DATE: 10/31/20 MR#: [id number] NOTE DATE: 11/20/20 RM#: 310EVALUATION TIME: 1403 is 20-year-old female, currently single, past psych historyof bipolar disorder, poor impulse control and borderline personality disorderChief complaint concern about her ability to maintain safety and possiblesuicidal thoughtsEvents Since Last EntryYareli was seen today along with the flight operation coordinator, Gloria, and a PAstudent from [facility]. Patient states she is very stressed. Sheadmits [...] primary school and then she pursued with [employer] for her high school. She reports she has been tested for low IQ in earlyage.Topic of her placement came up. Patient states she is not willing to go back toapartment program because she did not have a good past experience with thesaaz. She stated she has been allowed to [...] Patient states she was kicked out from [facility] in [facility]; hence, she does not wish to [...] rce(s) Supporting Document(s) ID Date Data Source [id number] 11/19/2020 01:53:00 PM EDT [place] [id number] HEALTH PROGRESS NOTEPATIENT NAME: YARELI HATCH PHYSICIAN: BROOKLYN ONEILL MDAUTHOR: Surendra SMITH,P.ADM. DATE: 10/31/20 MR#: [id number] NOTE DATE: 11/19/20 RM#: 310EVALUATION TIME: 1354 is 20-year-old female, currently single, past psych historyof bipolar disorder, poor impulse control and borderline personality disorderChief complaint concern about her ability to maintain safety and possiblesuicidal thoughtsEvents Since Last EntryYareli was seen today along with the flight operation coordinator, Gloria, and a PAstudent from [facility]. Patient expressed her irritation and statedthat she [...] inquireabout the AOT and her placement in [place]. She expressed her irritationrelated to her placement issue. She stated, "you do not have to take care of me". The patient states if somehow, she gets AOT and is placed in [place], itwill still not work. The patient also [...] wait and then to get into a usp. She has difficultyrealizing the fact it is [...] also has the meeting with state like [facility]. Patientis not happy about it. I told her this is important because they are the majorresource, and they will guide us. She is not making progress.Portions of this section were scribed by Shell Ariza on 11/19/20 at 1820DATE SIGNED: 11/19/20 Electronically SignedTIME SIGNED: 1819 BROOKLYN ONEILL MD Name Value Range Interpretation Code Description Data Stephanie rce(s) Supporting Document(s) ID Date Data Source [id number] 11/18/2020 02:32:00 PM EDT [address] HEALTH PROGRESS NOTEPATIENT NAME: YARELI HATCH PHYSICIAN: BROOKLYN ONEILL MDAUTHOR: Surendra SMITH,P.ADM. DATE: 10/31/20 MR#: [id number] NOTE DATE: 11/18/20 RM#: 310EVALUATION TIME: 1432 is 20-year-old female, currently single, past psych historyof bipolar disorder, poor impulse control and borderline personality disorderChief complaint concern about her ability to maintain safety and possiblesuicidal thoughtsEvents Since Last EntryYareli was seen today along with the flight operation coordinator, Gloria, and a PAstudent from [facility]. She is doing well today. She was [...] angry child [facility]. Patient admitsto not having any compassion for [...] has been declined by every agency in [facility] with opening tostay. I am in the process of working with the AOT coordinator to arrange forgetting the AOT done for her. We really do not have anywhere to send here.Given the fact she was on restraints over the weekend and is on ixs-jv-dvseodlqblwsmz because she put a pillow over her neck to strangle herself. I donot recommend discharge for her. I will explain to her my reasons for notdischarging her. We do not have a safe discharge plan for her. [facility]. Her Zydus has been increased to 10 mg daily.Portions of this section were scribed by Shell Ariza on 11/18/20 at 1626DATE SIGNED: 11/18/20 Electronically SignedTIME SIGNED: 1733 BROOKLYN ONEILL MD Name Value Range Interpretation Code Description Data Stephanie rce(s) Supporting Document(s) ID Date Data Source [id number] 11/17/2020 11:21:00 PM EDT [address] [id number] NOTE FOLLOW UPPATIENT NAME: YARELI HATCH PHYSICIAN: BROOKLYN ONEILL MDAUTHOR: Dori SMITH,AlexanderADM. DATE: 10/31/20 MR#: [id number] NOTE DATE: 11/17/20 RM#: 310EVALUATION TIME: 2324 [...] rce(s) Supporting Document(s) ID Date Data Source [id number] 11/15/2020 02:15:00 PM EDT [address] [id number] HEALTH PROGRESS NOTEPATIENT NAME: YARELI HATCH PHYSICIAN: BROOKLYN ONEILL MDAUTHOR: Surendra SMITH,P.ADM. DATE: 10/31/20 MR#: [id number] NOTE DATE: 11/15/20 RM#: 310EVALUATION TIME: 1416 is 20-year-old female, currently single, past psych historyof bipolar disorder, poor impulse control and borderline personality disorderChief complaint concern about her ability to maintain safety and possiblesuicidal thoughtsEvents Since Last EntryYareli was seen today along with the flight operation coordinator, and a [facility]. She is in a better mood today. [...] treatment plan. we are awaiting information from [facility] for placement effortsPortions of this section were scribed by Shell Ariza on 11/15/20 at 1415DATE SIGNED: 11/15/20 Electronically SignedTIME SIGNED: 141 BROOKLYN ONEILL MD Name Value Range Interpretation Code Description Data Stephanie rce(s) Supporting Document(s) ID Date Data Source [id number] 11/14/2020 07:41:00 PM EDT [address] HEALTH PROGRESS NOTEPATIENT NAME: YARELI HATCH CATTENGIOVANNY PHYSICIAN: BROOKLYN ONEILL MDAUTHOR: Surendra SMITH,P.ADM. DATE: 10/31/20 MR#: [id number] NOTE DATE: 11/14/20 RM#: 310EVALUATION TIME: 1948 is 20-year-old female, currently single, past psych historyof bipolar disorder, poor impulse control and borderline personality disorderChief complaint concern about her ability to maintain safety and possiblesuicidal thoughtsEvents Since Last EntryYareli was seen today with flight operation coordinator Cata and a PA student. Sheseems to be in better mood today without any hostility or irritableness. Sheasked the same question, what is happening to her AOT. We advised her that theAOT is being pursued and Lorraine is checking with [facility] and she will get back tous. Ever since Zyprexa has been added her mood has improved. She wants to gothe community residence in [place]. The problem remains the uncertainty aboutwhen the bed will become available and whether she can go through the AOTprocess. She seems to be satisfied with the answer.Portions of this section were scribed by Shell Ariza on 11/14/20 at 1941ObjectiveVital SignsVital Signs-LastResult Date TimeB/P 121/81 05/06 1849Pulse Ox 100 11/14 1115Temp 97.2 11/14 [...] to pursue AOT as well as with [facility].Portions of this section were scribed by Shell Ariza on 11/14/20 at 1941DATE SIGNED: 11/14/20 Electronically SignedTIME SIGNED: 1948 BROOKLYN ONEILL MD Name Value Range Interpretation Code Description Data Stephanie rce(s) Supporting Document(s) ID Date Data Source [id number] 11/13/2020 04:22:00 PM EDT [address] HEALTH PROGRESS NOTEPATIENT NAME: YARELI HATCH [facility] PHYSICIAN: BROOKLYN ONEILL MDAUTHOR: Surendra SMITH,P.ADM. DATE: 10/31/20 MR#: [id number] NOTE DATE: 11/13/20 RM#: 310EVALUATION TIME: 1624 is 20-year-old female, currently single, past psych historyof bipolar disorder, poor impulse control and borderline personality disorderChief complaint concern about her ability to maintain safety and possiblesuicidal thoughtsEvents Since Last EntryYareli was seen today with the flight operation coordinator. She continues to notshow any insight. [...] an opening in a community residence in [place]. Her Thorazinehas been changed to 300 mg [...] rce(s) Supporting Document(s) ID Date Data Source [id number] 11/12/2020 08:02:00 PM EDT [address] [id number] HEALTH PROGRESS NOTEPATIENT NAME: YARELI HATCH CATTENDING PHYSICIAN: BROOKLYN ONEILL MDAUTHOR: Surendra SMITH,P.ADM. DATE: 10/31/20 MR#: [id number] NOTE DATE: 11/12/20 RM#: 310EVALUATION TIME: 2007 is 20-year-old female, currently single, past psych historyof bipolar disorder, poor impulse control and borderline personality disorderChief complaint concern about her ability to maintain safety and possiblesuicidal thoughtsEvents Since Last EntryMicyla told me that she is transitioning to [...] for her. [facility] [place]. Will also work on her coping skill building.Portions of this section were scribed by Shell Ariza on 11/12/20 at 2002DATE SIGNED: 11/12/20 Electronically SignedTIME SIGNED: 2008 BROOKLYN ONEILL MD Name Value Range Interpretation Code Description Data Stephanie rce(s) Supporting Document(s) ID Date Data Source [id number] 11/12/2020 04:37:00 PM EDT Joe [address] [id number] NOTE FOLLOW UPPATIENT NAME: YARELI HATCH [facility] PHYSICIAN: BROOKLYN ONEILL MDAUTHOR: Jacque Chowdhury. DATE: 10/31/20 MR#: [id number] NOTE DATE: 11/12/20 RM#: 310EVALUATION TIME: 1640 [...] rce(s) Supporting Document(s) ID Date Data Source [id number] 11/11/2020 07:43:00 AM EDT [facility] [place] Exam Number: [id number] Reported By: Maria De Jesus KIM M.D. Signed By: Rakan KIM M.D. Name Value Range Interpretation Code Description Data Stephanie rce(s) Supporting Document(s) ID Date Data Source [id number] 11/10/2020 11:20:00 AM EDT [address] [id number] HEALTH PROGRESS NOTEPATIENT NAME: YARELI HATCH [place] PHYSICIAN: BROOKLYN ONEILL MDAUTHOR: Colleen SMITH,DhruvADM. DATE: 10/31/20 MR#: [id number] NOTE DATE: 11/10/20 RM#: 310EVALUATION TIME: 112 is 20-year-old female, currently single, past psych [...] rce(s) Supporting Document(s) ID Date Data Source [id number] 11/09/2020 11:20:00 AM EDT [place] [id number] HEALTH PROGRESS NOTEPATIENT NAME: YARELI HATCH PHYSICIAN: BROOKLYN ONEILL MDAUTHOR: Colleen SMITH,DhruvADM. DATE: 10/31/20 MR#: [id number] NOTE DATE: 11/09/20 RM#: 310EVALUATION TIME: 1121 [...] rce(s) Supporting Document(s) ID Date Data Source [id number] 11/08/2020 01:30:00 PM EDT [address] PROGRESS NOTEPATIENT NAME: YARELI HATCH PHYSICIAN: BROOKLYN ONEILL MDAUTHOR: Surendra SMITH,P.ADM. DATE: 10/31/20 MR#: [id number] NOTE DATE: 11/08/20 RM#: 310EVALUATION TIME: 1334 Since Last EntryYareli was seen today along with the flight operation coordinator, Gloria, and a PAstudent from [facility]. She apologized for not coming to the [...] and not thinkingcompletely. Lorraine was discussing with [facility] about further treatment options forher as Lorraine is not sure she meets the criteria for AOT. Since we do not havea safe discharge plan for her, I cannot consider discharging her.Portions of this section were scribed by Shell Ariza on 11/08/20 at 1558DATE SIGNED: 11/08/20 Electronically SignedTIME SIGNED: 160 BROOKLYN ONEILL MD Name Value Range Interpretation Code Description Data Stephanie rce(s) Supporting Document(s) ID Date Data Source [id number] 11/07/2020 03:12:00 PM EDT [place] [id number] HEALTH PROGRESS NOTEPATIENT NAME: YARELI HATCH CATTENDING PHYSICIAN: BROOKLYN ONEILL, MDAUTHOR: Surendra SMITH,P.ADM. DATE: 10/31/20 MR#: [id number] NOTE DATE: 11/07/20 RM#: 310EVALUATION TIME: 151 [...] rce(s) Supporting Document(s) ID Date Data Source [id number] 11/06/2020 01:30:00 PM EDT [place] [id number] HEALTH PROGRESS NOTEPATIENT NAME: MAMIEYARELI CATSALVADOR PHYSICIAN: BROOKLYN ONEILL MDAUTHOR: Surendra SMITH,P.ADM. DATE: 10/31/20 MR#: [id number] NOTE DATE: 11/06/20 RM#: 310EVALUATION TIME: 1330 Since Last EntryYareli was seen today along with the flight operation coordinator, Gloria, and a PAstudent from [facility]. She continues to be depressed. She is inbetter mood today. She was cooperative durin g the session. She answered all myquestions. Patient states she is forced to talk. She states she is barely ableto manage herself. When I insurance counselor Yareli talk about her life and [...] hospitalization. We have initiated AOT for her andLindsey Neuvine have met with her.Portions of this section were scribed by Shell Ariza on 11/06/20 at 1454DATE SIGNED: 11/06/20 Electronically SignedTIME SIGNED: 145 BROOKLYN ONEILL MD Name Value Range Interpretation Code Description Data Stephanie rce(s) Supporting Document(s) ID Date Data Source [id number] 11/05/2020 03:44:00 PM EDT [address] HEALTH PROGRESS NOTEPATIENT NAME: YARELI HATCH CATSALVADOR PHYSICIAN: BROOKLYN ONEILL MDAUTHOR: Surendra SMITH,P.ADM. DATE: 10/31/20 MR#: [id number] NOTE DATE: 11/05/20 RM#: [id number] TIME: 1546 Since Last EntryYareli was seen today along with the flight operation coordinator, Gloria, and a PAstudent from [facility]. She continues to be depressed. She has [...] rce(s) Supporting Document(s) ID Date Data Source [id number] 11/04/2020 09:38:00 AM EDT [address] [address]KXOBEOQ NAME: YARELI HATCH#: [id number] PHYSICIAN: BROOKLYN ONEILL MD ADM. DATE: 10/31/20PROGRESS NOTE DATE: 11/04/20 .#: 310ACCOUNT #: [id number] NOTEIDENTIFICATION: A 20-year-old female with schizoaffective disorder.VITAL SIGNS: Temperature of 97, pulse of 101, respirations 19, blood /79.SUBJECTIVE: The patient came to the interview room. [...] Dictated: 11/04/2020 09:20:11Date Transcribed: 11/04/2020 08:38:16JV/PUSDelfino #: [id number]: 11/04/20 0920 Electronically SignedTRANS:11/04/20 0938 FILI CANELA MDTRANS BY:TONDAALMA SIGNED:11/04/20REPORT COPY TO: Name Value Range Interpretation Code Description Data Stephanie rce(s) Supporting Document(s) ID Date Data Source [id number] 11/03/2020 11:54:00 AM EDT [facility] [address]HMTRVVR NAME: YARELI HATCH#: [id number] PHYSICIAN: BROOKLYN ONEILL MD ADM. DATE: 10/31/20PROGRESS NOTE DATE: 11/03/20 .#: 310ACCOUNT #: [id number] NOTEIDENTIFICATION: A 20-year-old female with schizoaffective disorder.VITAL [...] Dictated: 11/03/2020 09:56:45Date Transcribed: 11/03/2020 10:54:25JV/Erin #: [id number]: 11/03/20 0956 Electronically SignedTRANS:11/03/20 1154 FILI CANELA MDTRANS BY:IATDATE SIGNED:11/04/20REPORT COPY TO: Name Value Range Interpretation Code Description Data Stephanie rce(s) Supporting Document(s) ID Date Data Source [id number] 11/01/2020 10:43:00 AM EDT [address] [id number] NAME: YARELI HATCH Janette Jensen#: [id number] PHYSICIAN: BROOKLYN ONEILL MD ADM. DATE: 10/31/20ACCOUNT #: [id number] .#: [id number] ASSESSMENTIDENTIFICATION: A 20-year-old female with long history of schizoaffectivedisorder, cluster B personality disorder.CHIEF COMPLAINT: "I am suicidal."REASON FOR ADMISSION: Suicidal ideation.HISTORY OF PRESENT ILLNESS: According to the records and our interview, thepatient was discharged from our service 2 days ago, she was discharged qtaogb12:00 in the morning. She was back in [...] She [place] living [place]. The patient stated that she is a [...] kimberlyn.Date Dictated: 11/01/2020 10:19:56Date T ranscribed: 11/01/2020 09:43:52JV/PUSRuchib #: [id number]: 11/01/20 1019 Electronically SignedTRANS:11/01/20 1043 FILI CANELA MDTRANS BY:KIERRA SIGNED:11/02/20REPORT COPY TO: Name Value Range Interpretation Code Description Data Stephanie rce(s) Supporting Document(s) ID Date Data Source [id number] 10/31/2020 07:04:00 PM EDT [address] [id number] AND PHYSICALPATIENT NAME: YARELI HATCH MR#: [id number] PHYSICIAN: BOGDAN MACIAS MDAUTHOR: Theresa Chowdhury DATE: [...] 17; Temp 98.3; Pulse Ox 96% ; sx4Yrcpaojm ExaminationGeneral Appearance no acute distress, afebrile, alertHead [...] rce(s) Supporting Document(s) ID Date Data Source [id number] 10/29/2020 10:26:00 PM EDT [facility] Name Value Range Interpretation Code Description Data Stephanie rce(s) Supporting Document(s) COVID-19, CORDELL NEGATIVE NEGATIVE N [facility] Methodology: Isothermal Nucleic Acid Amp lification [...] Emergency Use Authorization. ID Date Data Source [id number] 10/29/2020 09:38:[address] [facility] Name Value Range Interpretation Code Description Data Stephanie rce(s) Supporting Document(s) Progress Note [facility] [id number] lbm [file] [id number]= ID Date Data Source [id number] 10/29/2020 06:37:00 PM EDT [facility] Name Value Range Interpretation Code Description Data Stephanie rce(s) Supporting Document(s) SALICYLATE < 1.7 mg/dL 0.0-20.0 [facility] ID Date Data Source [id number] 10/29/2020 06:37:00 PM EDT [facility] Name Value Range Interpretation Code Description Data Stephanie rce(s) Supporting Document(s) ACETAMINOPHEN > 2.0 ug/mL 0-30 [facility] ID Date Data Source [id number] 10/29/2020 06:37:00 PM EDT [facility] Name Value Range Interpretation Code Description Data Stephanie rce(s) Supporting Document(s) HCG QUAL SERUM Negative Negative [facility] ID Date Data Source [id number] 10/29/2020 06:37:00 PM EDT [facility] Name Value Range Interpretation Code Description Data Stephanie rce(s) Supporting Document(s) ETOH 0.000 g/dL NONE [facility]ECTED [facility] NONE DETECTED ID Date Data Source [id number] 10/29/2020 06:37:00 PM EDT [facility] Name Value Range Interpretation Code Description Data Stephanie rce(s) Supporting Document(s) GLU 109 mg/dL 70-110 [facility] Patients taking Sulfasalazine may have f alsely depressedGlucose levels. Patients taking Sulfapyridine may havefalsely elevated Glucose levels. Patients should be drawnfor Glucose before the initial administration of eitherdrug. BUN 17 mg/dL 7-23 [facility] CRE 0.658 mg/dL 0.500-1.300 [facility] GFR > 60 mL/min [facility] CHLORIDE 111 mmol/L 99-110 [facility] NA 142 mmol/L 136-147 [facility] POTASSIUM 4.1 mmol/L 3.5-5.1 [facility] TCO2 26 mmol/L 20-33 [facility] ANION GAP 9.1 10.0-20.0 L [facility] CA 8.9 mg/dL 8.3-10.7 [facility] ALKALINE PHOS 121 U/L 45-117 [facility] TP 7.5 g/dL 6.0-7.8 [facility] ALB 3.8 g/dL 3.5-5.0 [facility] ESRD Dialysis patient Albumin reference range: 2.9-4.4 g/dL GL 3.7 g/dL 2.3-3.5 H [facility] A/G 1.0 1.0-2.5 [facility] T. BILIRUBIN 0.2 mg/dL 0.1-1.1 [facility] [employer] [place] Total Bilirubin is n ot recommended forpatients undergoing treatment with eltrombopag (Promacta)due to the potential for falsely elevated results. ALTI 49 U/L 6-54 [facility] Patients taking Sulfasalazine and/or Sul fapyridine may havefalsely depressed ALT levels. Patients should be drawn forALT before the initial administration of either drug. AST 26 U/L 6-38 [facility] Patients taking Sulfasalazine and/or Sul fapyridine may havefalsely depressed AST levels. Patients should be drawn forAST before the initial administration of either drug. ID Date Data Source [id number] 10/29/2020 05:54:00 PM EDT [facility] Name Value Range Interpretation Code Description Data Stephanie rce(s) Supporting Document(s) WBC 7.63 x10E3/uL 4.0-10.5 [facility] RBC 4.24 x10E6/uL 4.20-5.40 [facility] Hemoglobin 12.8 g/dL 12.0-16.0 [facility] Hematocrit 37.6 % 37.0-47.0 [facility] MCV 88.7 fL 81.0-99.0 [facility] MCH 30.2 pg 27.0-31.0 [facility] MCHC 34.0 g/dL 32.7-35.6 [facility] RDW 12.3 % 11.5-14.0 [facility] Platelet count 211 x10E3/uL 150-450 N [facility] ital MPV 9.6 fl 6.9-9.5 [facility] Neutrophils 57.8 % 34-64 [facility] Lymphocytes 32.9 % 25-45 N [facility] Monocytes 7.2 % 1.7-10.6 [facility] Eosinophils 1.6 % 0.4-7.0 [facility] Basophils 0.1 % 0.1-2.0 [facility] Imm. Gran. 0.4 % 0.1-2.0 [facility] Abs. Neutro. 4.41 x10E3/uL 1.2-7.6 [facility] Abs. Lymph. 2.51 x10E3/uL 1.0-3.5 [facility] Abs. Stone. 0.55 x10E3/uL 0.1-1.0 [facility] Abs. Eosin. 0.12 x10E3/uL 0.1-0.7 N [facility] al Abs. Baso. 0.01 x10E3/uL 0.0-0.1 [facility] Abs. Imm. Gran. 0.03 x10E3/uL 0.0-0.1 [facility] spital ANRBC% 0 % 0 [facility] ID Date Data Source [id number] 10/29/2020 06:28:00 PM EDT [facility] Name Value Range Interpretation Code Description Data Stephanie rce(s) Supporting Document(s) PCP VISTA NEG NEGATIVE [facility] MINIMUM LEVEL OF DETECTION IS 25 ng/ml BENZODIAZEPINES [facility]G NEGATIVE [facility] MINIMUM LEVEL OF DETECTION IS 200 ng/ml COCAINE VISTA NEG NEGATIVE [facility] MINIMUM LEVEL OF DETECTION IS 300 ng/ml AMPHETAMINES NEG NEGATIVE [facility] MINIMUM LEVEL OF DETECTION IS 1000 ng/ml BARBITURATES NEG NEGATIVE [facility] al CUTOFF CONCENTRATION IS 200 ng/ml CANNABINOIDS NEG NEGATIVE [facility] al CUTOFF CONCENTRATION IS 50 ng/ml METHADONE VISTA NEG NEGATIVE [facility] al MINIMUM LEVEL OF DETECTION IS 300 ng/ml OPIATE VISTA NEG NEGATIVE [facility] MINIMUM DETECTION LEVEL IS 300 ng/ml ID Date Data Source [id number] 10/29/2020 05:57:00 PM EDT [facility] Name Value Range Interpretation Code Description Data Stephanie rce(s) Supporting Document(s) URINE COLOR Yellow [facility] UAPR Turbid [facility] UGLU Negative NEGATIVE [facility] URINE BILIRUBIN Negative NEGATIVE [facility] al UKET Negative NEGATIVE [facility] USG 1.024 1.010-1.025 [facility] UBLO Negative NEGATIVE [facility] UpH 7.0 5.0-8.0 [facility] UPRO Negative Negative [facility] UUB 1.0 mg/dL 0.2-1.0 [facility] UNIT Negative Negative [facility] ULEU Negative Negative [facility] ID Date Data Source [id number] 10/31/2020 10:31:00 AM EDT [facility] Physician DocumentationFabby Hinkle edical CenterName: Yareli DuvallAge: 20 yrsSex: FemaleDOB: 2000MRN: [id number] Date: 10/29/2020Time: 17:31Account#: [id number] MD:ED Physician Richie العليposition Summary:10/31/20 08:52Hospitalization OrderedHospitalization [...] presents to ER via [facility] vo8snfg complaints of Psych Problem.19:29 Patient comes the ER today for mental health evaluation. Patient was fa8jnqk in the ER for mental health on [...] Smoking status: Patient states was never smoker [employer] ETOH status Denies use of ETOH.- Advance [...] exhibiting self-injurious behavior in the ER not ws2nqcrqdfzqp to verbal de-escalation requiring chemical sedation. Averbal order was given for B-52 while I was busy with another issue.When I went to put the order in the computer, Haldol allergy poppedup however the medication was already given by the nurse. Patientclosely monitored for any evidence of allergic reaction..06:46 Data reviewed: vital signs, nurses notes, lab test result(s). ED vv6hebtrg: Care is endorsed to Dr. العلي at [...] continued to note aggressive behavior and started bv2gkrgzh verbal threats to staff including threatening to elope andhurt members of staff. After initial mechanical restraints wereremained as the patient did not improve, she regressed to this pointof concerned so the restraints were once again required. Arjun meade Geodon 20 mg by IM this [...] :26 Order name: COVID-19 PROF; Complete Time: 04:34TXBV32:35 Order name: Diet - Mental Health Tray (call dietary); Complete Time: tlm2::35 Order name: Belongings List; Complete Time: 09:37 :35 Order name: Document Weight and Height for BMI; Complete Time: 09:37 :35 Order name: Mental Health Level 3; Complete Time: 09:37 :35 Order name: VS q shift; Complete Time: 21:08 :29 Order name: Medically Cleared for Eval by-Psychosocial, Bottom Sander th4(.JAN); Complete Time: :02 Order name: EKG.; Complete Time: 22:08 :24 Order name: Mental Health Level 4; Complete Time: 09:2 :54 Order name: Restrain Patient; Complete Time: 21:54 ej4Hipgvnaxo Medications:10/2018:54 Drug: Seroquel - QUEtiapine 25 mg [quetiapine 25 mg tablet (1 tabs)] ud7Dwjzv: PO;22:08 Follow up: Response: No adverse reaction :38 Drug: B52 IM - (LORazepam 2 mg, diphenhydrAMINE 50 mg, Haloperidol gg9Xyvntvm 5 mg) Route: IM; Site: right vastus [...] diphenhydrAMINE 50 mg [diphenhydramine 50 mg/mL injection gj9boboxwrd (1 mL)] {Note: given for severe anxiety.} [...] 20 mg [ziprasidone 20 mg/mL (final concentration) ub4pbbsrcqmttigi solution (1 mL)] Route: IM; Site: right [...] Rhythm is regular, Normal Sinus Rhythm. QRS kv9Hyex is Normal. RI interval is normal. QRS interval is normal. QTinterval is normal. No Q waves. T waves are Normal. No ST changesnoted. Clinical impression: Normal ECG. Interpreted by me.Signatures:Dispatcher [employer] Елена Boogie RN RN klpMMagaly funk RN RN tlmElliott, Suzanne, MD MD seHowland, Todd, MD MD ae8QleosFortunato humphrey RN RN kv1MagxriBreonna Marie RN RN ee1VhmluicAnoop Bowman MD MD jeremias2DStacy zhou RN uo5Mzgykeyzmxo: (The following items were deleted from the chart)10/2110:57 11:56 COVID-19 PROFILE+LAB ordered. PROVLMVB54/2200:32 00:10 LORazepam 4 mg IM once ordered. dk2 dk2 Name Value Range Interpretation Code Description Data Stephanie rce(s) Supporting Document(s) ID Date Data Source [id number] 10/31/2020 10:31:00 AM EDT [facility] Nurse's NotesClaxFour [facility] Medical Tootie terName: Yareli DuvallAge: 20 yrsSex: FemaleDOB: 2000MRN: [id number] Date: 10/29/2020Time: 17:31Account#: [id number] LI9Ynqqoru MD:Diagnosis: Major depressive disorder, recurrent, unspecifiedPresentation:10/2016:31 Presenting complaint: Patient states: "suicidal thought with plan and tlmanxiety:". Coronavirus Screening: Have you been diagnosed withCOVID-19 in the past 30 days? no Are [facility] no Flu-like symptoms reported in the last 14 days: no.Have you had close contact with confirmed or suspected COVID-19 case?no Do you live in a setting where a large of amount of people live,such as fpc, family care, fpc, etc? no. Have you traveledto a location with widespread or ongoing COVID-19 community spread [facility]? no Have you traveled internationally or hadcontact with someone that has traveled and has been ill in the past 3weeks? no Have you received the COVID vaccine? No. CommunicationSpeaks [place]? Yes, is preferred language. Communicable DiseaseScreen: Negative [...] Smoking status: Patient states was never smoker oftobaSharetivityo. ETOH status Denies use of ETOH.- Advance [...] that the patient found a paper clip zi6tlnswijptj on a "window"- she would not give [...] reported that patient had been "digging and hc7foiqfuhysf herself" and despite constant redirection, MHW had tomanually hold wrists down to prevent her from doing this. She doeshave bilateral superficial scratches to her wrists w/o bleeding. F21ewvthhpq ordered and given.05:26 Reassessment: screen writer was called back to room by psa- pt was still qq4lmyumgdtll to dig at herself. She was verbally [...] room due to patient harming self by zc2wybxtejbdp self with her fingernails several attempts made to getpatient to stop, patient asked why she was doing this and she replied"because I'm depressed and anxious" patient offered medication tohelp with her severe anxiety and she accepted MD made aware ofsituation and order recieved..20:39 Reassessment: Patient continues to try to hurt self and report severe as0lyujjcx MD called to bedside to assess the situation and additionalmedications ordered..21:55 Reassessment: Despite all other interventions patient continues to jw5try to harm self MD notified and order received to place patient intorestraints at this time for safety.22:48 Reassessment: Patient appears in no apparent distress at this time. ku3Jdfmzth released from restraints at 2245, patient reports [...] to leave became aggressive yelling and threatening wasukumar continually updated on the situation and order [...] Report Not Completed. Intervention: Observation Level 3. yq0Cydlfr health consult is initiated at 20:30. Referral Information:Evaluation referral is generated by the patient himself / herself.The patient was referred for evaluation because expresses suici dalideations with the plan to hang her self or to overdose.20:57 Subjective: The patients chief complaint is Pt presents to the ED as sm8a walk in due to suicidal ideations. Pt was discharged from [facility] three hours before arriving to the [...] inpatient mental health.She has been admitted at [facility], [facility], and [facility].Pt has a history of Bipolar, Major Depressive, Anxiety. She statesthat she does not take her medications constantly which continuedwhile she was inpatient. Pt reports that [facility] up with [facility]. She will be [...] reports history of anxiety, Bipolar Disorder, Depression, uo6xrvhuzx attempt: multiple by overdose Other: Borderline PersonalityDisorder. Mental Health Admissions: [facility]. [facility] was [facility] Current Outpatient MentalHealth Services: Therapist / Agency: [facility]. Living Environment:Family / Home Support: poor [...] patient status is not currently needed or oq7sehmusfgann. Consultation: Psych MD informed of patient's status at21:00, ED MD notified of patients status at 21:17. Disposition:Medically cleared for disposition by Dr Argueta. Psychiatric Consultis performed by phone with Dr Macias The patient is to be transferredto bed available facility. Legal Status: Patient's legal status [facility] Services: 9.37. Commitment papers arecompleted. DSM-V DX [place] I diagnosis: Depression, Unspecified.Insurance Pre-Certification: Not Required. [facility] Admission Criteria:The patient is experiencing suicidal [...] referralhospital acceptance. The patient is not a food service substitute or militarydependent. Elliott Suicide Severity Rating Scale: Suicidal IdeationRating 5; Intensity of Ideations Rating 25; Suicidal Behavior Rating1.10/2100:37 Narrative Pt was using her sheet and pillow case to wrap around her bk7hvfb. Blankets and pillow case were removed. Pt [...] left arm. She has been redirected multiple zx7xpzzv by PSA and sitter. Security is present. Pt is now currentlywaiting TV with both hands visible.03:58 Narrative Pt is laying down, watching TV. Sitter is present. Safety sm8is maintained.04:43 Narrative Pt started digging at her arm again. PSA and sitter had nt6zeqaxykka to redirect the pt with no success. Nurse and MD was madeaware. B52 was given. Pt has a keisha on her left wrist and a smallermark on her right wrist. Both have been looked at by nurse.19:21 Narrative PSA role handed off to this screen writer at 1900. sm804/2201:04 Narrative Since shift change at 1930 pt has been digging herself, xe7tgljhfdzmlg to leave, yelling and swearing, she has [...] Narrative PSA role handed off to this screen writer at 7:30 AM. kf09:33 Disposition: The patient is admitted to [facility] Patient report is kfgiven to Dylan Ribeiro RN. Legal Status: Patient's legal status willbe Emergency: 9.39. Commitment papers are completed. PT has beenprovided with a copy of her legal status and rights.Psych:10/2017:02 Subjective: Patient's mood is euphoric, Delusions are denied, tlmHallucinations are denied Having thoughts of suicide. Plan forsuicide is to overdose on drugs, [facility] she reports she told them she didn't feel ready to go home.Objective: Patient is cooperative, Speech is normal, Affect isappropriate. Interventions: Removed personal items and placed in bag.Patient placed in hospital gown. Searched person for dangerous items.Urine collected and sent for urine drug test. Belonging list filledout. Observation Level Level 3 Charge nurse notified. Genie RobertsLiliam Level 3 order placed.10/2103:38 Interventions: Observation Level Level 4 Sitter needed. Provider wj4Wgxikhqf Nils Argueta MD Charge Nurse notified Breonna [...] Clean catch specimen.19:13 No apparent distress. Psychosocial Bottom Sander. tlm19:13 Sitter at bedside. tlm19:22 Nils Argueta MD is Attending Physician. th404/2108:18 Notified ED physician of other exceptional student education teacher pt vomited would like tlmsomething, new orders [...] mg [quetiapine 25 mg tablet (1 tabs)] nm5Epfys: PO;22:08 Follow up: Response: No adverse reaction tp:38 Drug: B52 IM - (LORazepam 2 mg, diphenhydrAMINE 50 mg, Haloperidol bo2Rauckvv 5 mg) Route: IM; Site: right vastus [...] diphenhydrAMINE 50 mg [diphenhydramine 50 mg/mL injection nq8fdgyhjnb (1 mL)] {Note: given for severe anxiety.} [...] 20 mg [ziprasidone 20 mg/mL (final concentration) bp5ofvxrlblrkaiy solution (1 mL)] Route: IM; Site: right [...] Psych accompanied by dena, with chart, Other [facility] officers x 210:30 Condition: stable.10:30 Instructed on need for admit.10:30 Discharge Assessment: Patient awake, alert and oriented x 3. Nocognitive and/or functional deficits noted. Patient verbalizedunderstanding of disposition instructions. Patient angry andinitially uncooperative Patient has no functional deficits.10:31 Patient left the ED. klpSignatures:Елена Hugo, RN Magaly Groves, RN Kylie Garces MD MD seDow, Wendy, RN RN lg6TxixdrZakia Cortez, RN RN Zakia Pham PSA PSA kfHowland, Todd, MD MD cp0ZerijFortunato humphrey RN RN bl7FessvjBreonna yu, RN RN ov0NjykjdkvUsha Adams Derek MD db0Pivvimswanv: (The following items were deleted from the [...] Patient reports history of anxiety, Bipolar Disorder, xw6Ytxbhjdquv, suicide attempt: multiple by overdose Mental HealthAdmissions: multiple admissions. [facility] and wasdis[facility] today Current Outpati ent Mental Health Services: Therapist/ Agency: [facility]. Living Environment: Family / Home Support:poor The patient currently lives with his / her significant other,Wilmar Duenas. The patient is single. Detox / Rehab Admissions: None.Current Outpt Alcohol or Substance Abuse Services: None. sm804:55 04:48 Reassessment: MHW and PSA reported that patient had been tp2"digging and scratching herself" and despite constant intervention,MHW had to manually hold wrists down to prevent her from doing this.She does have bilateral superficial scratches to her wrists w/obleeding. B52 verbally ordered and given. tp223:55 22:48 Reassessment: Patient appears in no apparent distress at this eu8ltay. jw5 Name Value Range Interpretation Code Description Data Stephanie rce(s) Supporting Document(s) ID Date Data Source [id number] 10/28/2020 08:29:00 PM EDT [place], [place] [address]PATIENT NAME: YARELI HATCH#: [id number] PHYSICIAN: BROOKLYN ONEILL MDACCOUNT #: [id number] ADM. DATE: 10/26/20PATIENT : 00 DISCH. DATE: [...] rce(s) Supporting Document(s) ID Date Data Source [id number] 10/28/2020 06:30:00 PM EDT [place], [place] [address]MENTAL HEALTH PROGRESS NOTEPATIENT NAME: YARELI HATCH PHYSICIAN: BROOKLYN ONEILL MDAUTHOR: Surendra SMITH,P.ADM. DATE: 10/26/20 MR#: [id number] NOTE DATE: 10/28/20 RM#: [id number] TIME: 1830 , , female patient.CC/Hx Present IllnessPt states, "I was and I am feeling suicidal since last week". [facility] her so she came [facility] with a friend and walked herself to the ED for an evaluation.Events Since Last EntryPatient was seen today to assess her improvement. The patient denies any SI/HI.She talked about her friend in [place] with whom she wants to live withuntil residence in [facility].Portions of this section were scribed by Shell Ariza on 10/28/20 at 1832ObjectiveVital SignsVital Signs-LastResult Date TimePulse Ox 98 10/28 1140B/P 122/83 10/28 1140Temp 97.5 10/28 1140Pulse 65 10/28 1140Resp 14 10/28 1140Current MedicationsMiscellaneous Read KAVD56A NAQuetiapine Fumarate (Seroquel) 25 MG 2000 POChlorpromazine [...] will be discharged tomorrow with services in [place].Portions of this section were scribed by Shell Ariza on 10/28/20 at 1830DATE SIGNED: 10/28/20 Electronically SignedTIME SIGNED: 1831 BROOKLYN ONEILL MD Name Value Range Interpretation Code Description Data Stephanie rce(s) Supporting Document(s) ID Date Data Source [id number] 10/28/2020 05:10:00 PM EDT [address] DISCHARGE SUMMARYPATIENT NAME: YARELI HATCH MR#: [id number] PHYSICIAN: BROOKLYN ONEILL MDAUTHOR: Surendra SMITH,P. DATE: 10/26/20 #: [id number] DATE:PrceeslYmbqapcmnrnott86-xhyt-apv, , female patient.Chief ComplaintPt states, "I was and I am feeling suicidal since last week". Reports she wentto [facility] last week and they didn't admit her so she came to [place] tosta with a friend and walked herself to the ED for an evaluation.Reason for AdmissionIncreased depression and feeling suicidal. SIB, by scratching forearms with apencil when in-patient at [facility] in Aug.History of Presenting IllnessYareli is [...] HistoryHas been staying with a friend in [place] that she met while in the [facility].Abuse HistoryAdmits but doesn't discuss today.Legal HistoryCharged for disorderly conduct and harrassement but hasn't been to court yet.This involved staff during a restraint at [facility].Portions of this section were scribed by Shell Ariza on 10/28/20 at 1710Hospital CourseHospital ScottI saw her on Wednesday and then today. She talked about her multiple overdosesand that [facility] did not want to hospitalize her. So, [facility] and showed up to our [...] her. Shestates she has a friend in [place] and then wait until residence in [facility] up.Portions of this section were scribed by Shell Ariza on 10/28/20 at 1803DATE SIGNED: 10/28/20 Electronically SignedTIME SIGNED: 1808 BROOKLYN ONEILL MD Name Value Range Interpretation Code Description Data Stephanie rce(s) Supporting Document(s) ID Date Data Source [id number] 10/27/2020 10:23:00 AM EDT [facility] [address] PSYCHIATRIC ASSESSMENTPATIENT NAME: YARELI HATCH MR#: [id number] PHYSICIAN: BROOKLYN ONEILL MDAUTHOR: Frantz Win DATE: 10/26/20 RM#: [id number], , female patient.Chief ComplaintPt states, "I was and I am feeling suicidal since last week". Reports she wentto [facility] last week and they didn't admit her so she came to [place] tosta with a friend and walked herself to the ED for an evaluation.Reason for AdmissionIncreased depression and feeling suicidal. SIB, by scratching forearms with apencil when in-patient at [facility] in Aug.History of Presenting IllnessYareli is friendly, polite and cooperative today. Reports she feels saferwhen she is here in-patient. Has not been [facility] She didn't f/u with her out-patient services and didn'tpick up her prescribed meds from the pharmacy. She reports she notices nodifference on or off her medications.Past Psych/Medical HistoryPsychiatric HistorySignificant psych historyMedical HistoryDeniesDrugs/Alcohol/Tobacco HistoryDeniesHome MedicationsSee Home Medication ListAllergiesCoded Allergies:haloperidol (From HALDOL) (06/15/20)risperidone (08/04/19)Family HistoryFamily history of mental health and substance use.Social HistoryHas been staying with a friend in [place] that she met while in the [facility].Abuse HistoryAdmits but doesn't discuss today.Legal HistoryCharged for disorderly conduct and harrassement but hasn't been to court yet.This involved staff during a restraint at [facility].ExamVital SignsVital Signs-LastResult Date TimePulse Ox 100 [...] (0.0 - 20.0 mg/dL) < 1.7 10/26 0623Opiates Screen (NEGATIVE) NEG 10/26 0708Methadone Screen (NEGATIVE) NEG 10/26 0608Acetaminophen (0 - 30 ug/mL) < 2.0 10/26 722Barbiturate Screen (NEGATIVE) NEG 10/26 07Phencyclidine Screen (NEGATIVE) NEG 10/26 07Amphetamines Screen (NEGATIVE) NEG 10/26 07Benzodiazepines (NEGATIVE) NEG 10/26 07Cocaine Screen (NEGATIVE) NEG 10/26 07Cannabinoids (NEGATIVE) NEG 10/26 07Ethyl Alcohol (NONE DETECTED g/dL) 0.004 H 10/26 07UrinesUrine Color Yellow 10/26 07Urine Appearance Cloudy 10/26 07Urine pH (5.0 - 8.0) 6.0 10/26 07Ur Specific [place] (1.010 - 1.025) 1.027 H 10/26 07Urine [...] to self/othersDATE SIGNED: 10/27/20 Electronically SignedTIME SIGNED: Isidro7 FRANTZ GIORDANO Name Value Range Interpretation Code Description Data Stephanie rce(s) Supporting Document(s) ID Date Data Source [id number] 10/26/2020 05:21:00 PM EDT [facility] [address] [address]PEVNHWN AND PHYSICALPATIENT NAME: YARELI HATCH MR#: [id number] PHYSICIAN: BROOKLYN ONEILL MDAUTHOR: Eliana Garcia DO DATE: 10/26/20 RM#: [id number] & PHYSICAL DATE: 10/26/20 : 00EVALUATION TIME: 1731HistoryChief Complaint/Admit ReasonSuicidal ideationHistory of Presenting IllnessPatient is a 20 years old [facility] According to the [...] numbness.PsychReports: stress, suicidal ideation.ExamVital SignsVital Signs-24 HRS04 04/228553 1245Temp 97.8Pulse 116Resp 22B/P 131/82 134/79B/P MeanPulse Ox 96O2 DeliveryO2 Flow KuoiTjP9Etexxguy ExaminationGeneral Appearance no acute distress, afebrile, alert, awake, conversant, facesymmetricalHead atraumatic, normocephalicNeck no swelling, suppleCardiovascular regular rate, no murmur, normal capillary refill, Positive S1and W7Tgyonlgafpn clear to auscultation, no distress, aerating well, [...] bleeding or surrounding erythemanoted.Data ReviewLaboratory DataRecent Labs-48 hours10/26096130 1316 0732ChemistrySodium (136 - 147 mmol/L) 143Potassium (3.5 [...] CloudyUrine pH (5.0 - 8.0) 6.0Ur Specific [place] (1.010 - 1.025) 1.027 HUrine Protein (Negative) NegativeUrine Ketones (NEGATIVE) NegativeUrine Blood (NEGATIVE) NegativeUrine Nitrite (Negative) NegativeUr Bilirubin Confirm (NEGATIVE) NegativeUrine Urobilinogen (0.2 - 1.0 mg/dL) 0.2Urine Leukocytes (Negative) NegativeUrine Glucose (NEGATIVE) NegativeUrine HCG, Qual (Negative) Irfftcyj80/317856DchvmfzdIZJUE-94 (CORDELL) (NEGATIVE) NEGATIVEAssessment/PlanDiagnosis/Problem1. Suicidal ideationA&P- Patient is [...] rce(s) Supporting Document(s) ID Date Data Source [id number] 10/26/2020 11:14:00 AM EDT [facility] [place] Name Value Range Interpretation Code Description Data Stephanie rce(s) Supporting Document(s) COVID-19, CORDELL NEGATIVE NEGATIVE N [facility] Methodology: Isothermal Nucleic Acid Amp lification [...] Emergency Use Authorization. ID Date Data Source [id number] 10/26/2020 07:42:00 AM EDT [facility] [place] Name Value Range Interpretation Code Description Data Stephanie rce(s) Supporting Document(s) WBC 8.10 x10E3/uL 4.0-10.5 [facility] RBC 4.37 x10E6/uL 4.20-5.40 [facility] Hemoglobin 13.2 g/dL 12.0-16.0 [facility] Hematocrit 39.2 % 37.0-47.0 [facility] MCV 89.7 fL 81.0-99.0 [facility] MCH 30.2 pg 27.0-31.0 [facility] MCHC 33.7 g/dL 32.7-35.6 [facility] RDW 11.9 % 11.5-14.0 [facility] Platelet count 204 x10E3/uL 150-450 N [facility] ital MPV 9.6 fl 6.9-9.5 H [facility] Neutrophils 67.3 % 34-64 H [facility] Lymphocytes 23.3 % 25-45 L [facility] Monocytes 7.3 % 1.7-10.6 [facility] Eosinophils 1.5 % 0.4-7.0 [facility] Basophils 0.1 % 0.1-2.0 [facility] Imm. Gran. 0.5 % 0.1-2.0 [facility] Abs. Neutro. 5.45 x10E3/uL 1.2-7.6 N [facility] [place] Abs. Lymph. 1.89 x10E3/uL 1.0-3.5 [facility] Abs. Stone. 0.59 x10E3/uL 0.1-1.0 [facility] Abs. Eosin. 0.12 x10E3/uL 0.1-0.7 [facility] Abs. Baso. 0.01 x10E3/uL 0.0-0.1 [facility] Abs. Imm. Gran. 0.04 x10E3/uL 0.0-0.1 [facility] spital ANRBC% 0 % 0 [facility] ID Date Data Source [id number] 10/26/2020 08:20:00 AM EDT [facility] [place] Name Value Range Interpretation Code Description Data Stephanie rce(s) Supporting Document(s) SALICYLATE < 1.7 mg/dL 0.0-20.0 N [facility] ID Date Data Source [id number] 10/26/2020 08:20:00 AM EDT [facility] [place] Name Value Range Interpretation Code Description Data Stephanie rce(s) Supporting Document(s) ACETAMINOPHEN < 2.0 ug/mL 0-30 [facility] ID Date Data Source [id number] 10/26/2020 08:20:00 AM EDT [facility] [place] Name Value Range Interpretation Code Description Data Stephanie rce(s) Supporting Document(s) ETOH 0.004 g/dL NONE DETECTED H [facility] ID Date Data Source [id number] 10/26/2020 08:20:00 AM EDT [facility] [place] Name Value Range Interpretation Code Description Data Stephanie rce(s) Supporting Document(s) GLU 106 mg/dL 70-110 [facility] Patients taking Sulfasalazine may have f alsely depressedGlucose levels. Patients taking Sulfapyridine may havefalsely elevated Glucose levels. Patients should be drawnfor Glucose before the initial administration of eitherdrug. BUN 19 mg/dL 7-23 [facility] CRE 0.729 mg/dL 0.500-1.300 [facility] GFR > 60 mL/min [facility] CHLORIDE 111 mmol/L 99-110 [facility] NA 143 mmol/L 136-147 [facility] POTASSIUM 3.6 mmol/L 3.5-5.1 [facility] TCO2 23 mmol/L 20-33 [facility] ANION GAP 12.6 10.0-20.0 [facility] CA 8.9 mg/dL 8.3-10.7 [facility] ALKALINE PHOS 112 U/L 45-117 [facility] TP 7.4 g/dL 6.0-7.8 [facility] ALB 4.0 g/dL 3.5-5.0 [facility] ESRD Dialysis patient Albumin reference range: 2.9-4.4 g/dL GL 3.4 g/dL 2.3-3.5 [facility] A/G 1.2 1.0-2.5 [facility] T. BILIRUBIN 0.3 mg/dL 0.1-1.1 [facility] [place] Total Bilirubin is n ot recommended forpatients undergoing treatment with eltrombopag (Promacta)due to the potential for falsely elevated results. ALTI 41 U/L 6-54 [facility] Patients taking Sulfasalazine and/or Sul fapyridine may havefalsely depressed ALT levels. Patients should be drawn forALT before the initial administration of either drug. AST 15 U/L 6-38 [facility] Patients taking Sulfasalazine and/or Sul fapyridine may havefalsely depressed AST levels. Patients should be drawn forAST before the initial administration of either drug. ID Date Data Source [id number] 10/26/2020 07:29:00 AM EDT [facility] Name Value Range Interpretation Code Description Data Stephanie rce(s) Supporting Document(s) URINE COLOR Yellow [facility] UAPR Cloudy [facility] UGLU Negative NEGATIVE [facility] URINE BILIRUBIN Negative NEGATIVE [facility] UKET Negative NEGATIVE [facility] USG 1.027 1.010-1.025 [facility] UBLO Negative NEGATIVE [facility] UpH 6.0 5.0-8.0 [facility] UPRO Negative Negative [facility] UUB 0.2 mg/dL 0.2-1.0 [facility] UNIT Negative Negative [facility] ULEU Negative Negative [facility] ID Date Data Source [id number] 10/26/2020 07:41:00 AM EDT [facility] [place] Name Value Range Interpretation Code Description Data Stephanie rce(s) Supporting Document(s) PCP VISTA NEG NEGATIVE [facility] MINIMUM LEVEL OF DETECTION IS 25 ng/ml BENZODIAZEPINES NEG NEGATIVE [facility] al MINIMUM LEVEL OF DETECTION IS 200 ng/ml COCAINE VISTA NEG NEGATIVE [facility] MINIMUM LEVEL OF DETECTION IS 300 ng/ml AMPHETAMINES NEG NEGATIVE [facility] al MINIMUM LEVEL OF DETECTION IS 1000 ng/ml BARBITURATES [facility] CUTOFF CONCENTRATION IS 200 ng/ml CANNABINOIDS NEG NEGATIVE [facility] CUTOFF CONCENTRATION IS 50 ng/ml METHADONE VISTA NEG NEGATIVE N [facility] MINIMUM LEVEL OF DETECTION IS 300 ng/ml OPIATE VISTA NEG NEGATIVE [facility] MINIMUM DETECTION LEVEL IS 300 ng/ml ID Date Data Source [id number] 10/26/2020 07:29:00 AM EDT [facility] Name Value Range Interpretation Code Description Data Stephanie rce(s) Supporting Document(s) HCG QUAL URINE Negative Negative [facility] ID Date Data Source [id number] 10/26/2020 11:54:00 AM EDT [facility] Physician DocumentationClaxton-Naveen M edical CenterName: Yareli DuvallAge: 20 yrsSex: FemaleDOB: 2000MRN: [id number] Date: 10/26/2020Time: 06:59Account#: [id number] MD: NONE, - Per PatientED Physician Latrice [...] recently seen aphysician. 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 Patient/guardian denies using street drugs, IV [...] vital signs, nurses notes, lab test result(s). af10/1706: Order name: Acetaminophen Level; Complete Time: 08:49 5010/1706: Order name: CBC with diff; Complete Time: 08:00 5010/1706: Order name: CMP; Complete Time: 08:49 5010/1706: Order name: ETOH; Complete Time: 08:49 5010/1706: Order name: Glucose 5010/1706: Order name: Salicylate Level; Complete Time: 08:49 5010/1706: Order name: Triage - Drug Screen;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 adoptive family. Has minimal contact withbiological parents; states "they don't accept me". The patientcurrently lives "homeless". Had been in supportive housing/ communityresidence in [place].03:24 Patient presents to Emergency Department with the [...] Dr Canela. The patient is [facility] Patientreport is given to Malu Bowman RN. Legal Status: Patient's legalstatus will be Emergency: 9.39. Commitment papers are completed. Pthas been provided with a copy of legal status and rights.04:09 DSM-V DX [place] I diagnosis: Bipolar D/O, Unspecified. gr04:09 Insurance Pre-Certification: Not Required. [facility] Admission Criteria: grThe patient is experiencing [...] psychoactivemedications or significant dosage adjustments. [facility] Transition of care to Pt will be transferred to [facility] by [facility] andsecurity. The patient is not a food service substitute or dependent.Elliott Suicide Severity Rating Scale: Suicidal Ideation Rating 5;Intensity of Ideations Rating 25; Suicidal Behavior Rating 1.Psych:01:51 Subjective: Patient's mood is sad, hopeless, Delusions are denied, gi2Zlkagwioqjptjg are denied Having thoughts of suicide. Plan forsuicide is to strangle self or overdose on medications. Objective:Patient is cooperative, Speech is normal, Affect is appropriate,Patient has mutilated themselves by superficial cuts to left arm.02:04 Interventions: Removed personal items and placed in bag. Patient at6sttqwu in hospital gown. Searched person for dangerous [...] armband on for positive identification. Placed in fs4jxtw. Bed in low position. Sitter at bedside.Administered Medications:No medications were administeredOutcome:04:14 Decision to Hospitalize by Provider. th405:25 Disposition: Admitted to Psych cm405:25 Condition: stable.05:25 Instructed on need for admit.05:25 Discharge Assessment: Patient verbalized understanding of dispositioninstructions. Patient has no functional deficits.05:47 Patient left the ED. lr8Ohbxgdqjhm:Rose Paulino, PSA Nils Patino MD MD ac1MvprsFortunato humphrey RN RN nm7OazwnfhvtWendy Severino, RN RN cm4 Name Value Range Interpretation Code Description Data Stephanie rce(s) Supporting Document(s) ID Date Data Source [id number] 05/16/2020 01:20:[address] DISCHARGE SUMMARYPATIENT NAME: YARELI HATCH MR#: [id number] PHYSICIAN: BOGDAN MACIAS MDAUTHOR: Bogdan Macias MD [...] has been staying in a hotel in [place] aftersigning her self out of [facility] in November of 2019. Pt reports she called a cab herselfto bring her here. Pt states she was inpatient at [facility] for a month and wasdischarged yesterday. [...] is allergic to Haldol but thedoctor in [facility] had put her on the medication any ways. Pt reports ahistory of bipolar, borderline personality disorder, and gender identitydisorder. Pt has a history of inpatient treatment at [facility], [facility] Pt was last inpatient to [facility] 12/02/2019. Pt reports when recently hada suicide attempt a few days after being dicharged from [facility] last, she statedshe had overdosed on medications [...] arrangement as she [facility] stay with her friend for the [...] out regarding staying [place] mot[place] area as she signed herself out from [facility] on November 2019. Patientstated that [...] well. Onepoint patient was also referred to [facility] and she was rejected by them due toexpressing that they think that the patient has a more behavioral issues andwould not be benefited with inpatient mental health treatment. Later onpatient was staying on the unit as we were waiting for a safe place fordischarge and referral being sent to different places such as [facility], [facility] and[facility] places as well. Later on patient [...] forward to fill out some paperwork at [facility] as well. She alsoappreciated the [...] the following new medications:Loratadine* (Claritin*) 10 MG [id number] MILLIGRAM Orally DAILYQty = 14Refills = 1TOPIRAMATE (TOPAMAX) 25 MG DQBZDO97 MILLIGRAM Orally TWICE DAILYQty = 20Refills = 1Fluoxetine* (Prozac*) 20 MG SXCJUWO81 MILLIGRAM Orally DAILYQty = 20Refills = 1HydrOXYzine (Atarax*) 50 MG [id number] MILLIGRAM Orally TWICE DAILY as needed for AnxietyQty = 20Refills = 1ARIPIPRAZOLE (ABILIFY MAINTENA) 400 MG SUSER.KXVT869 MILLIGRAM Intramuscularly T10LSeq = 1No RefillsInstruction s:Last IM injection received on May 03, 2020Discharge Activity: As toleratedDischarge diet: Low Fat/Low CholesterolFollow-upFollow up with your Primary care physicianFollow-up with therapist and psychiatrist as recommendedAlso recommended outpatient chemical dependencyReferralsOrdered ReferralsOphthalmology 07/23/20[facility] ([phone])located at [address] in [place] July 23 at 11:30 am.Internal Medicine 06/03/20In person primary care appointment [facility] ([phone]) located at [address] [place] [address] in [place] on June 03 at 2:00 pm with [facility] [address] [place] [address] In person appointment at [facility] ([phone]) locatedat [address] in [place] on May 23 at 2:00 pm with Hilda.Yareli will need to attend thisappointment in order to receive herAbilify Maintenna injection on 05/31.[facility] [place] [address] [facility] ([phone])located at [address] [place] [address] in [place] May 29 at 11:00 amwith Ruth. Dwons will need to attendthis appointment in order to receive herAbilify Maintenna injection on 05/31.DATE SIGNED: 05/16/20 Electronically SignedTIME SIGNED: 1326 BOGDAN MACIAS MD Name Value Range Interpretation Code Description Data Stephanie rce(s) Supporting Document(s) ID Date Data Source [id number] 05/16/2020 09:41:00 AM EST [place], [place] [address]PATIENT NAME: YARELI HATCH Janette Jensen#: [id number] PHYSICIAN: HUBER VELAZQUEZ #: [id number] ADM. DATE: 02/15/20PATIENT : 00 DISCH. DATE: [...] follow-upappointmentDischarge InformationDISCHARGE INFORMATION* Thank you for [facility] and allowing us toserve you* Our Goal is to provide the highest quality of care.* This discharge information is to help you better understand your diagnosisand medication* Avoid taking mkyb-dvo-ruixhgt medicines unless approved by your physician.* Take your medications as prescribed. DO NOT stop any medications unlessapproved first* Weigh yourself daily. Report any gain of 5 lbs in a week* 24 Hour Crisis HOTLINE available: Call Reachout at * Chem. Dependency: Walk in Clinics [place] ([phone]) and [place] ([phone]) anytime Wednesday thru Wednesday 8 to 10am. [place] ([phone]) anytimeWednesday thru Wednesday 8 to 10am. [place] ([phone]) Wednesday or Wednesday from 8to 10am (Bring $30 to First [facility]) SMOKIN G CESSATION* Smoking is dangerous to your health. It delays the healing process, andworks against your medications. Not smoking will improve your health* Our hospital participates with the Opt-to-Quit program. You will be contactedafter discharge by the [facility] Smoker's Quitline for support with tobaccocessation. You have the option once contacted to refuse this service.* You can also go online to www.Casengo. Free nicotine replacementsare available ___Attention* You should contact your follow up Physician as it is important that you lethim or her check you and report any new or remaining problems. If yourcondition worsens, follow up with your provider or visit our EmergencyDepartment. If you received pain medication, anxiety medications, musclerelaxants, or any medication that causes drowsiness, you cannot operateCertifyhiAPERA BAGSy, power tools, or drive.Safe ActSafe Act Completed NoiStopiStop completed NoEND ENDDICT: 05/16/20940 Electronically SignedTRANS:05/16/20940 BOGDAN MACIAS MDTRANS BY:DATE SIGNED:05/16/20TIME SIGNED: 941REPORT COPY TO: Name Value Range Interpretation Code Description Data Stephanie rce(s) Supporting Document(s) ID Date Data Source [id number] 05/15/2020 01:17:[address] [facility], [place] [address]PXNMIP HEALTH PROGRESS NOTEPATIENT NAME: YARELI HATCH PHYSICIAN: BOGDAN MACIAS MDAUTHOR: Colleen SMITH,Sarahy. DATE: 02/15/20 MR#: [id number] NOTE DATE: 05/15/20 RM#: [id number] TIME: 1319 [...] rce(s) Supporting Document(s) ID Date Data Source [id number] 05/14/2020 11:49:00 AM [place] [id number] HEALTH PROGRESS NOTEPATIENT NAME: YARELI HATCH PHYSICIAN: BOGDAN MACIAS MDAUTHOR: Colleen SMITH,DhruvADM. DATE: 02/15/20 MR#: [id number] NOTE DATE: 05/14/20 #: [id number] TIME: 1151 is 19-year-old female, currently single, lives in a motel,past psych history of bipolar disorderCC/Hx Present IllnessThe patient was referred for evaluation because pt having suicidal ideations.Events Since Last EntryPatient reporting feeling somewhat better, she is mostly focused on herdischarge plan and she is about to be discharged this prior to going to [facility]. Patient denied having any suicidal, homicidal [...] rce(s) Supporting Document(s) ID Date Data Source [id number] 05/13/2020 01:19:00 PM KARMEN Rauschxtreal [place] [address]MENTAL HEALTH PROGRESS NOTEPATIENT NAME: YARELI HATCH PHYSICIAN: BOGDAN MACIAS, MDAUTHOR: Colleen SMITH,DhruvAPUJA. DATE: 02/15/20 MR#: [id number] NOTE DATE: 05/13/20 RM#: [id number] TIME: 1322 [...] QHSPRN PRN POExaminationMusculoskeletalGait normalStation normalResultsLaboratory DataRecent Labs-24 hours/[id number] (CORDELL) PendingResults Ordered/ReviewedLab Tests reviewedAssessment/PlanDiagnosis1. Major depressive disorderStatus Acute2. Bipolar affective disorder3. Borderline personality disor derCoordination of care provided with nursing staff, treatment team, social work,physician's, familyRisk/benefits discussed side effectsJustification for continued stay danger to self/othersDATE SIGNED: 05/13/20 Electronically SignedTIME SIGNED: 1322 BOGDAN MACIAS MD Name Value Range Interpretation Code Description Data Stephanie rce(s) Supporting Document(s) ID Date Data Source [id number] 05/13/2020 11:14:00 AM EST [facility] Name Value Range Interpretation Code Description Data Stephanie rce(s) Supporting Document(s) SARS coronavirus 2 RNA [facility] This lab [facility] reported by [facility]. ID Date Data Source [id number] 05/14/2020 04:07:00 PM EST [facility] [place] Performed at: RN - [facility] [address] [id number] Director: Samira Cortez MD, Phone: [phone] Name Value Range Interpretation Code Description Data Stephanie rce(s) Supporting Document(s) SARS-CoV-2, CORDELL Not Detected Not Detected [facility] This nucleic acid amplification test was [...] SARS-CoV-2 virusand/or diagnosis of COVID-19 infection under [id number](b)(1) of the Act, 21 U.S.C. 360bbb-3(b) (1), [...] Acid Amplification (CORDELL) ID Date Data Source [id number] 05/10/2020 11:10:00 AM EDT [address] PROGRESS NOTEPATIENT NAME: YARELI HATCH [facility] PH[facility]ICIAN: BOGDAN MACIAS MDAUTHOR: Colleen SMITH,DhruvADM. DATE: 02/15/20 MR#: [id number] NOTE DATE: 05/10/20 RM#: [id number] TIME: 1113 [...] QHSPRN PRN POExaminationMusculoskeletalGait normalStation normalResultsLaboratory DataRecent Labs-24 hours10/985154HvaxbdhumNjxtdf (136 - 147 mmol/L) 141Potassium (3.5 - [...] rce(s) Supporting Document(s) ID Date Data Source [id number] 05/09/2020 05:28:00 PM EDT [facility] Name Value Range Interpretation Code Description Data Stephanie rce(s) Supporting Document(s) GLU 80 mg/dL 70-110 [facility] Patients taking Sulfasalazine may have f alsely depressedGlucose levels. Patients taking Sulfapyridine may havefalsely elevated Glucose levels. Patients should be drawnfor Glucose before the initial administration of eitherdrug. BUN 12 mg/dL 7-23 [facility] CRE 0.502 mg/dL 0.500-1.300 [facility] CHLORIDE 109 mmol/L 99-110 [facility] NA 141 mmol/L 136-147 [facility] POTASSIUM 4.5 mmol/L 3.5-5.1 [facility] TCO2 26 mmol/L 20-33 [facility] ANION GAP 10.5 10.0-20.0 [facility] CA 9.1 mg/dL 8.3-10.7 [facility] ALKALINE PHOS 142 U/L 82-169 [facility] TP 7.7 g/dL 6.0-7.8 [facility] ALB 4.0 g/dL 3.5-5.0 [facility] ESRD Dialysis patient Albumin reference range: 2.9-4.4 g/dL GL 3.7 g/dL 2.3-3.5 [facility] A/G 1.1 1.0-2.5 [facility] T. BILIRUBIN 0.4 mg/dL 0.1-1.1 [facility] [place] Total Bilirubin is n ot recommended forpatients undergoing treatment with eltrombopag (Promacta)due to the potential for falsely elevated results. ALTI 57 U/L 6-54 [facility] Patients taking Sulfasalazine and/or Sul fapyridine may havefalsely depressed ALT levels. Patients should be drawn forALT before the initial administration of either drug. AST 30 U/L 6-38 [facility] Patients taking Sulfasalazine and/or Sul fapyridine may havefalsely depressed AST levels. Patients should be drawn forAST before the initial administration of either drug. ID Date Data Source [id number] 05/09/2020 05:00:00 PM EDT [facility] [place] Name Value Range Interpretation Code Description Data Stephanie rce(s) Supporting Document(s) WBC 7.62 x10E3/uL 4.0-10.5 [facility] RBC 4.40 x10E6/uL 4.20-5.40 [facility] Hemoglobin 12.7 g/dL 12.0-16.0 [facility] Hematocrit 38.7 % 37.0-47.0 [facility] MCV 88.0 fL 81.0-99.0 [facility] MCH 28.9 pg 27.0-31.0 [facility] MCHC 32.8 g/dL 32.7-35.6 [facility] RDW 12.7 % 11.5-14.0 [facility] Platelet count 254 x10E3/uL 150-450 [facility] ital MPV 9.9 fl 6.9-9.5 [facility] Neutrophils 58.1 % 34-64 [facility] Lymphocytes 34.1 % 25-45 [facility] Monocytes 6.4 % 1.7-10.6 [facility] Eosinophils 0.9 % 0.4-7.0 [facility] Basophils 0.1 % 0.1-2.0 [facility] Imm. Gran. 0.4 % 0.1-2.0 [facility] Abs. Neutro. 4.42 x10E3/uL 1.2-7.6 [facility] [place] Abs. Lymph. 2.60 x10E3/uL 1.0-3.5 [facility] Abs. Stone. 0.49 x10E3/uL 0.1-1.0 [facility] Abs. Eosin. 0.07 x10E3/uL 0.1-0.7 [facility] Abs. Baso. 0.01 x10E3/uL 0.0-0.1 [facility] Abs. Imm. Gran. 0.03 x10E3/uL 0.0-0.1 [facility] spital ANRBC% 0 % 0 [facility] ID Date Data Source [id number] 05/09/2020 01:04:00 PM EDT [address] HEALTH PROGRESS NOTEPATIENT NAME: YARELI HATCH PHYSICIAN: BOGDAN MACIAS MDAUTHOR: Colleen SMITH,DhruvADM. DATE: 02/15/20 MR#: [id number] NOTE DATE: 05/09/20 RM#: [id number] TIME: 1307 [...] rce(s) Supporting Document(s) ID Date Data Source [id number] 05/08/2020 12:46:00 PM EDT [place] [id number] HEALTH PROGRESS NOTEPATIENT NAME: YARELI HATCH PHYSICIAN: BOGDAN MACIAS MDAUTHOR: Collene SMITH,DhruvADM. DATE: 02/15/20 MR#: [id number] NOTE DATE: 05/08/20 RM#: [id number] TIME: 1248 [...] rce(s) Supporting Document(s) ID Date Data Source [id number] 05/07/2020 01:49:00 PM EDT [facility] [address] PROGRESS NOTEPATIENT NAME: YARELI HATCH PHYSICIAN: BOGDAN MACIAS MDAUTHOR: Colleen SMITH,DhruvAPUJA. DATE: 02/15/20 MR#: [id number] NOTE DATE: 05/07/20 RM#: [id number] TIME: 1351 [...] rce(s) Supporting Document(s) ID Date Data Source [id number] 05/06/2020 01:32:00 PM EDT [place] [id number] HEALTH PROGRESS NOTEPATIENT NAME: YARELI HATCH PHYSICIAN: BOGDAN MACIAS MDAUTHOR: Colleen SMITH,DhruvADM. DATE: 02/15/20 MR#: [id number] NOTE DATE: 05/06/20 RM#: [id number] TIME: 1335 is 19-year-old female, currently single, lives in a motel,past psych history of bipolar disorderCC/Hx Present IllnessThe patient was referred for evaluation because pt having suicidal ideations.Events Since Last EntryPatient was seen along with sitter as well as flight operation coordinator on otherside, patient was resting comfortable, [...] rce(s) Supporting Document(s) ID Date Data Source [id number] 05/05/2020 11:49:00 PM EDT [address] [id number] NOTE FOLLOW UPPATIENT NAME: MAMIEYARELI CAPELLAN PHYSICIAN: BOGDAN MACIAS, MDAUTHOR: Dori SMITH,Lea. DATE: 02/15/20 MR#: [id number] NOTE DATE: 05/05/20 RM#: [id number] TIME: 13 [...] rce(s) Supporting Document(s) ID Date Data Source [id number] 05/05/2020 02:12:00 AM EDT [facility] [place] Name Value Range Interpretation Code Description Data Stephanie rce(s) Supporting Document(s) MAGNESIUM 2.2 mg/dL 1.6-2.6 [facility] ID Date Data Source [id number] 05/05/2020 02:12:00 AM EDT [facility] [place] Name Value Range Interpretation Code Description Data Stephanie rce(s) Supporting Document(s) ALLEN 4.5 mg/dL 2.5-4.5 [facility] ID Date Data Source [id number] 05/05/2020 02:12:00 AM EDT [facility] [place] Name Value Range Interpretation Code Description Data Stephanie rce(s) Supporting Document(s) GLU 97 mg/dL 70-110 [facility] Patients taking Sulfasalazine may have f alsely depressedGlucose levels. Patients taking Sulfapyridine may havefalsely elevated Glucose levels. Patients should be drawnfor Glucose before the initial administration of eitherdrug. BUN 18 mg/dL 7-23 [facility] CRE 0.571 mg/dL 0.500-1.300 [facility] CHLORIDE 109 mmol/L 99-110 [facility] NA 142 mmol/L 136-147 [facility] POTASSIUM 4.3 mmol/L 3.5-5.1 [facility] TCO2 27 mmol/L 20-33 [facility] ANION GAP 10.3 10.0-20.0 [facility] CA 8.7 mg/dL 8.3-10.7 [facility] ALKALINE PHOS 126 U/L 82-169 [facility] TP 7.1 g/dL 6.0-7.8 [facility] ALB 3.6 g/dL 3.5-5.0 [facility] ESRD Dialysis patient Albumin reference range: 2.9-4.4 g/dL GL 3.5 g/dL 2.3-3.5 [facility] A/G 1.0 1.0-2.5 [facility] T. BILIRUBIN 0.3 mg/dL 0.1-1.1 [facility] [place] Total Bilirubin is n ot recommended forpatients undergoing treatment with eltrombopag (Promacta)due to the potential for falsely elevated results. ALTI 47 U/L 6-54 [facility] Patients taking Sulfasalazine and/or Sul fapyridine may havefalsely depressed ALT levels. Patients should be drawn forALT before the initial administration of either drug. AST 18 U/L 6-38 [facility] Patients taking Sulfasalazine and/or Sul fapyridine may havefalsely depressed AST levels. Patients should be drawn forAST before the initial administration of either drug. ID Date Data Source [id number] 05/05/2020 01:52:00 AM EDT [facility] Name Value Range Interpretation Code Description Data Stephanie rce(s) Supporting Document(s) WBC 8.06 x10E3/uL 4.0-10.5 [facility] RBC 4.09 x10E6/uL 4.20-5.40 [facility] Hemoglobin 11.8 g/dL 12.0-16.0 [facility] Hematocrit 36.6 % 37.0-47.0 [facility] MCV 89.5 fL 81.0-99.0 [facility] MCH 28.9 pg 27.0-31.0 [facility] MCHC 32.2 g/dL 32.7-35.6 [facility] RDW 12.6 % 11.5-14.0 [facility] Platelet count 226 x10E3/uL 150-450 [facility] ital MPV 9.6 fl 6.9-9.5 [facility] Neutrophils 51.7 % 34-64 [facility] Lymphocytes 38.1 % 25-45 [facility] Monocytes 8.4 % 1.7-10.6 [facility] Eosinophils 1.1 % 0.4-7.0 [facility] Basophils 0.2 % 0.1-2.0 [facility] Imm. Gran. 0.5 % 0.1-2.0 [facility] Abs. Neutro. 4.16 x10E3/uL 1.2-7.6 [facility] [place] Abs. Lymph. 3.07 x10E3/uL 1.0-3.5 [facility] Abs[facility] Stone. 0.68 x10E3/uL 0.1-1.0 [facility] Abs. Eosin. 0.09 x10E3/uL 0.1-0.7 [facility] Abs. Baso. 0.02 x10E3/uL 0.0-0.1 [facility] Abs. Imm. Gran. 0.04 x10E3/uL 0.0-0.1 [facility] ANRBC% 0 % 0 [facility] ID Date Data Source [id number] 05/05/2020 12:57:00 AM EDT [facility] [address] [id number] NOTE FOLLOW UPPATIENT NAME: YARELI HATCH PHYSICIAN: BOGDAN MACIAS MDAUTHOR: Dori SMITH,[facility]. DATE: 02/15/20 MR#: [id number] NOTE DATE: 05/05/20 RM#: [id number] TIME: 0117 [...] rce(s) Supporting Document(s) ID Date Data Source [id number] 05/03/2020 01:24:00 PM EDT [address] HEALTH PROGRESS NOTEPATIENT NAME: YARELI HATCH PHYSICIAN: BOGDAN MACIAS MDAUTHOR: Colleen SMITH,DhruvADM. DATE: 02/15/20 MR#: [id number] NOTE DATE: 05/03/20 RM#: [id number] TIME: 1325 [...] rce(s) Supporting Document(s) ID Date Data Source [id number] 05/02/2020 01:53:00 PM EDT [facility] [address], [place] [address]SQCR[place] HEALTH PROGRESS NOTEPATIENT NAME: YARELI HATCH PHYSICIAN: BOGDAN MACIAS MDAUTHOR: Colleen SMITH,Sarahy. DATE: 02/15/20 MR#: [id number] NOTE DATE: 05/02/20 RM#: [id number] TIME: 1355 [...] treatment plan, [facility] as well as increasing further [...] rce(s) Supporting Document(s) ID Date Data Source [id number] 05/01/2020 01:01:00 PM EDT [place] [id number] HEALTH PROGRESS NOTEPATIENT NAME: YARELI HATCH PHYSICIAN: BOGDAN MACIAS MDAUTHOR: Colleen SMITH,DhruvADM. DATE: 02/15/20 MR#: [id number] NOTE DATE: 05/01/20 RM#: [id number] TIME: 1303 [...] rce(s) Supporting Document(s) ID Date Data Source [id number] 04/30/2020 01:52:00 PM EDT [address] [id number] HEALTH PROGRESS NOTEPATIENT NAME: YARELI HATCH PHYSICIAN: BOGDAN MACIAS MDAUTHOR: Colleen SMITH,DhruvADM. DATE: 02/15/20 MR#: [id number] NOTE DATE: 04/30/20 RM#: [id number] TIME: 1355 [...] rce(s) Supporting Document(s) ID Date Data Source [id number] 04/29/2020 11:16:00 AM EDT [facility] PROGRESS NOTEPATIENT NAME: YARELI HATCH PHYSICIAN: BOGDAN MACIAS MDAUTHOR: Colleen SMITH,DhruvADM. DATE: 02/15/20 MR#: [id number] NOTE DATE: 04/29/20 RM#: [id number] TIME: 1120 [...] current safe discharge plan regarding going to [facility] as well.Patient denied having any medication [...] rce(s) Supporting Document(s) ID Date Data Source [id number] 04/26/2020 01:20:00 PM EDT [address] HEALTH PROGRESS NOTEPATIENT NAME: YARELI HATCH PHYSICIAN: BOGDAN MACIAS MDAUTHOR: Colleen SMITH,DhruvADM. DATE: 02/15/20 MR#: [id number] NOTE DATE: 04/26/20 RM#: [id number] TIME: 1323 [...] current treatment plan which [facility] regarding patient to be called Rigo [...] rce(s) Supporting Document(s) ID Date Data Source [id number] 04/25/2020 01:43:00 PM EDT [address] HEALTH PROGRESS NOTEPATIENT NAME: YARELI HATCH PHYSICIAN: BOGDAN MACIAS MDAUTHOR: Colleen SMITH,DhruvADM. DATE: 02/15/20 MR#: [id number] NOTE DATE: 04/25/20 RM#: [id number] TIME: 1345 [...] rce(s) Supporting Document(s) ID Date Data Source [id number] 04/24/2020 02:01:00 PM EDT [facility] PROGRESS NOTEPATIENT NAME: YARELI HATCH PHYSICIAN: BOGDAN MACIAS MDAUTHOR: Colleen SMITH,DhruvADM. DATE: 02/15/20 MR#: [id number] NOTE DATE: 04/24/20 RM#: [id number] TIME: 1404 [...] 04/24 114B/P 135/83 04/24 1140Temp 97.3 04/24 1140Pulse 91 [...] rce(s) Supporting Document(s) ID Date Data Source [id number] 04/23/2020 01:23:00 PM EDT [address] HEALTH PROGRESS NOTEPATIENT NAME: YARELI HATCH PHYSICIAN: BOGDAN MACIAS MDAUTHOR: Colleen SMITH,Sarahy. DATE: 02/15/20 MR#: [id number] NOTE DATE: 04/23/20 #: 317EVALUATION TIME: 1326 [...] patient later on agreedfor further treatment [facility] [place]. Patient also reporting medicationsworking okay, [...] treatment plan, discussed with the [facility]reg[facility], continuing current [...] rce(s) Supporting Document(s) ID Date Data Source [id number] 04/22/2020 09:56:00 AM EDT [address] HEALTH PROGRESS NOTEPATIENT NAME: YARELI HATCH PHYSICIAN: BOGDAN MACIAS MDAUTHOR: Pasquale WHITE,Ana. DATE: 02/15/20 MR#: [id number] NOTE DATE: 04/22/20 RM#: [id number] TIME: 1008 [...] (Clotrimazole) 0 DIRECTED TOPNasal Lubricant (Saline [place]al [place]) 0 Q3HPRN PRN NASALExaminationMusculoskeletalGait normalStation normalMental Status [...] rce(s) Supporting Document(s) ID Date Data Source [id number] 04/19/2020 01:13:00 PM EDT [place] [id number] HEALTH PROGRESS NOTEPATIENT NAME: YARELI HATCH PHYSICIAN: BOGDAN MACIAS MDAUTHOR: Colleen SMITH,DhruvADM. DATE: 02/15/20 MR#: [id number] NOTE DATE: 04/19/20 RM#: [id number] TIME: 1315 [...] (Clotrimazole) 0 DIRECTED TOPNasal Lubricant (Saline [place]al [place]) 0 Q3HPRN PRN NASALExaminationMusculoskeletalGait normalStation normalResultsResults Ordered/ReviewedLab Tests reviewedAssessment/PlanDiagnosis1. Major depressive disorderStatus Acute2. Suicide attemptStatus Acute3. Bipolar affective disorderCoordination of care provided with nursing staff, treatment teamRisk/benefits discussed side effectsDATE SIGNED: 04/19/20 Electronically SignedTIME SIGNED: 1315 BOGDAN MACIAS MD Name Value Range Interpretation Code Description Data Stephanie rce(s) Supporting Document(s) ID Date Data Source [id number] 04/18/2020 12:59:00 PM EDT [facility] [address] [id number] HEALTH PROGRESS NOTEPATIENT NAME: YARELI HATCH PHYSICIAN: BOGDAN MACIAS, MDAUTHOR: Colleen SMITH,Sarahy. DATE: 02/15/20 MR#: [id number] NOTE DATE: 04/18/20 RM#: [id number] TIME: 1301 [...] mePulse Ox 99 04/18 1153B/P 112/71 04/18 115Temp 97.5 04/18 1153Pulse 75 04/18 1153Resp 20 [...] (Clotrimazole) 0 DIRECTED TOPNasal Lubricant (Saline [place]al [place]) 0 Q3HPRN PRN NASALExaminationMusculoskeletalGait normalStation normalResultsLaboratory DataRecent [...] rce(s) Supporting Document(s) ID Date Data Source [id number] 04/17/2020 07:50:00 PM EDT [facility] [place] Name Value Range Interpretation Code Description Data Stephanie rce(s) Supporting Document(s) LIP 60.0 U/L 73-393 [facility] ID Date Data Source [id number] 04/17/2020 07:50:00 PM EDT [facility] [place] Name Value Range Interpretation Code Description Data [facility](s) Supporting Document(s) GLU 113 mg/dL 70-110 [facility] Patients taking Sulfasalazine may have f alsely depressedGlucose levels. Patients taking Sulfapyridine may havefalsely elevated Glucose levels. Patients should be drawnfor Glucose before the initial administration of eitherdrug. BUN 17 mg/dL 7-23 [facility] CRE 0.692 mg/dL 0.500-1.300 [facility] CHLORIDE 109 mmol/L 99-110 [facility] NA 141 mmol/L 136-147 [facility] POTASSIUM 3.9 mmol/L 3.5-5.1 [facility] TCO2 24 mmol/L 20-33 [facility] ANION GAP 11.9 10.0-20.0 [facility] CA 9.1 mg/dL 8.3-10.7 [facility] ALKALINE PHOS 148 U/L 82-169 [facility] TP 8.0 g/dL 6.0-7.8 [facility] ALB 4.3 g/dL 3.5-5.0 [facility] ESRD Dialysis patient Albumin reference range: 2.9-4.4 g/dL GL 3.7 g/dL 2.3-3.5 [facility] A/G 1.2 1.0-2.5 [facility] T. BILIRUBIN 0.3 mg/dL 0.1-1.1 [facility] [place] Total Bilirubin is n ot recommended forpatients undergoing treatment with eltrombopag (Promacta)due to the potential for falsely elevated results. ALTI 45 U/L 6-54 [facility] Patients taking Sulfasalazine and/or Sul fapyridine may havefalsely depressed ALT levels. Patients should be drawn forALT before the initial administration of either drug. AST 26 U/L 6-38 [facility] Patients taking Sulfasalazine and/or Sul fapyridine may havefalsely depressed AST levels. Patients should be drawn forAST before the initial administration of either drug. ID Date Data Source [id number] 04/17/2020 07:17:00 PM EDT [facility] Name Value Range Interpretation Code Description Data Stephanie rce(s) Supporting Document(s) HbA1C 4.70 % 3.8-5.6 [facility] Suggested Diagnosis HbA1c% Diabet ic >/= 6.5Prediabetes 5.7%-6.4%Normal < 5.7% ID Date Data Source [id number] 04/17/2020 06:39:00 PM EDT [facility] [place] Name Value Range Interpretation Code Description Data Stephanie rce(s) Supporting Document(s) WBC 6.99 x10E3/uL 4.0-10.5 [facility] RBC 4.51 x10E6/uL 4.20-5.40 [facility] Hemoglobin 13.0 g/dL 12.0-16.0 [facility] Hematocrit 39.4 % 37.0-47.0 [facility] MCV 87.4 fL 81.0-99.0 [facility] MCH 28.8 pg 27.0-31.0 [facility] MCHC 33.0 g/dL 32.7-35.6 [facility] RDW 12.7 % 11.5-14.0 [facility] Platelet count 260 x10E3/uL 150-450 [facility] ital MPV 9.5 fl 6.9-9.5 [facility] Neutrophils 53.5 % 34-64 [facility] Lymphocytes 38.1 % 25-45 [facility] Monocytes 6.9 % 1.7-10.6 [facility] Eosinophils 0.9 % 0.4-7.0 [facility] Basophils 0.3 % 0.1-2.0 [facility] Imm. Gran. 0.3 % 0.1-2.0 [facility] Abs. Neutro. 3.75 x10E3/uL 1.2-7.6 [facility] [place] Abs. Lymph. 2.66 x10E3/uL 1.0-3.5 [facility] Abs. Stone. 0.48 x10E3/uL 0.1-1.0 [facility] Abs. Eosin. 0.06 x10E3/uL 0.1-0.7 [facility] Abs. Baso. 0.02 x10E3/uL 0.0-0.1 [facility] Abs. Imm. Gran. 0.02 x10E3/uL 0.0-0.1 [facility] spital ANRBC% 0 % 0 [facility] ID Date Data Source [id number] 04/17/2020 05:59:00 PM EDT [place], [place] [address]CONSULT REPORTPATIENT NAME: YARELI HATCH MR#: [id number] PHYSICIAN: ANGELA VELAZQUEZONSULTING PHYSICIAN: Theresa Chowdhury DATE: [...] judgement, abnormal insight, anxiousData ReviewLaboratory Datapending.ImagingEXAM# TYPE/EXAM [id number] US/U/S COMPLETE UPPER ABDOMENDATE OF EXAMINATION: 04/17/2020 [...] Full codePlan discussed with patientCase discussed with insurance case manager, nursing staffDATE SIGNED: 04/17/20 Electronically SignedTIME SIGNED: 180 THERESA COOPER Name Value Range Interpretation Code Description Data Stephanie rce(s) Supporting Document(s) ID Date Data Source [id number] 04/17/2020 01:29:00 PM EDT [address] HEALTH PROGRESS NOTEPATIENT NAME: YARELI HATCH PHYSICIAN: BOGDAN MACIAS, JESSICAUTHOR: Colleen SMITH,Sarahy. DATE: 02/15/20 MR#: [id number] NOTE DATE: 04/17/20 #: [id number] TIME: 1331 is 19-year-old female, currently [...] she just wanted to have his number fromMysafeplacebook which we discussed with the patient about [...] (Clotrimazole) 0 DIRECTED TOPNasal Lubricant (Saline Nasal [place]) 0 Q3HPRN PRN NASALExaminationMusculoskeletalGait normalStation normalResultsResults Ordered/ReviewedLab Tests reviewedAssessment/PlanDiagnosis1. Bipolar disorder, manicCoordination of care provided with nursing staff, treatment teamRisk/benefits discussed side effectsJustification for continued stay danger to self/others, behavior intolerableDATE SIGNED: 04/17/20 Electronically SignedTIME SIGNED: 1330 BOGDAN MACIAS MD Name Value Range Interpretation Code Description Data Stephanie rce(s) Supporting Document(s) ID Date Data Source [id number] 04/17/2020 01:00:00 PM EDT [facility] Exam Number: [id number] OF EXAMINATIO N: 04/17/2020 8:00 EDTU/S COMPLETE [...] rce(s) Supporting Document(s) ID Date Data Source [id number] 04/16/2020 01:31:00 PM EDT [facility] [place] [facility], [place] [address] HEALTH PROGRESS NOTEPATIENT NAME: YARELI HATCH PHYSICIAN: BOGDAN MACIAS MDAUTHOR: Colleen SMITH,DhruvADM. DATE: 02/15/20 MR#: [id number] NOTE DATE: 04/16/20 RM#: [id number] TIME: 1336 [...] (Clotrimazole) 0 DIRECTED TOPNasal Lubricant (Saline Nasal [place]) 0 Q3HPRN PRN NASALIbuprofen (Motrin) 600 MG [...] Duration Value Status Description Data Source(s ) Smoking 06/12/2021 12:00:00 AM EST Unknown if ever smoked comp leted Unknown if ever smoked [facility] Smoking 06/10/2021 12:01:00 AM EST Daily Smoker completed Daily [facility] Smoking 06/03/2021 12:00:00 AM EST Unknown if ever smoked comp leted Unknown if ever smoked [facility] Alcohol intake 04/05/2021 12:00:00 AM EDT Ex-drinker (finding) comp leted Ex- drinker (finding) [facility] Smoking 03/20/2021 12:00:00 AM EDT Unknown if ever smoked comp leted Unknown if ever smoked [facility] Alcohol intake 03/13/2021 12:00:00 AM EDT Ex-drinker (finding) comp leted Ex- drinker (finding) [facility] Tobacco use and exposure 03/13/2021 12:00:00 AM EDT Never used co mpleted Never used [facility] Cigarettes smoked current (pack per day) - Reported 03/13/20 12:00:00 [address]T UNK completed [facility] Smoking 03/13/2021 12:00:00 AM EDT Current every day smoker co mpleted Current every day smoker [facility] Tobacco use and exposure 02/21/2021 12:00:00 AM EDT Smokeless to bacco non-user completed Smokeless tobacco non-user [facility] Cigarette pack-years 02/21/2021 12:00:00 AM EDT UNK completed [facility] Cigarettes smoked current (pack per day) - Reported 02/22/20 12:00:00 AM EDT UNK completed [facility] Smoking 02/21/2021 12:00:00 AM EDT Smokes tobacco daily comple hellen Smokes tobacco daily [facility] Alcohol intake 02/21/2021 12:00:00 AM EDT Ex-drinker (finding) comp leted Ex- drinker (finding) [facility] 12/22/2020 12:00:00 AM EDT Cigarette Smoker completed Cig arette Smoker [facility] 12/22/2020 12:00:00 AM EDT Smokes tobacco daily comple hellen Smokes tobacco daily [facility] Smoking 11/13/2020 12:00:00 AM EDT Unknown if ever smoked comp leted Unknown if ever smoked [facility] ([facility]) Smoking 08/27/2020 12:00:00 AM EST Unknown if ever smoked comp leted Unknown if ever smoked [facility] ([facility]) Smoking 08/23/2020 12:00:00 AM EST Unknown if ever smoked comp leted Unknown if ever smoked [facility] ([facility]) Smoking 06/24/2020 12:00:00 AM EST Unknown if ever smoked comp leted Unknown if ever smoked [facility] ([facility]) Vital Signs ID Date Data Source UNK Name Value Range Interpretation Code Description Data Source(s) Systolic blood pressure 120 mm[Hg] Normal (applies t o non-numeric results) 120 mm[Hg] [facility] Diastolic blood pressure 80 mm[Hg] Normal (applies to non-numeric results) 80 mm[Hg] [facility] Heart rate 80 min Normal (applies to non-numeric resul ts) 80 min [facility] Respiratory rate 20 min Normal (applies to non-numeric results) 20 min [facility] Deprecated Oxygen saturation in Capillary blood by Oximetry 99 % Normal (applies to non-numeric results) 99 % [facility] Body temperature 36.8 lindy Normal (applies to non-numeric results) 36.8 lindy [facility] Body weight Measured 230 [lb_av] Normal (applies to n on-numeric results) 230 [lb_av] [facility] Body mass index (BMI) [Ratio] 37.1 kg/m2 No rmal (applies to non-numeric results) 37.1 kg/m2 [facility] Body height 167.53626990569693 cm Normal (applies to non-numeric results) 167.22341313586929 cm [facility] Systolic blood pressure 129 mm[Hg] 129 mm[Hg] [facility] Diastolic blood pressure 90 mm[Hg] 90 mm[Hg] [facility] Heart rate 72 /min 72 /min [facility] Respiratory rate 16 /min 16 /min [facility] Oxygen saturation in Arterial blood by Pulse oximetry 95 % 95 % [facility] Body temperature 36.89 Lindy 36.89 Lindy [facility] Body weight 137.[address] [facility] Body mass index (BMI) [Ratio] 48.78 kg/m2 48.78 kg/m2 [facility] Body height 167.[address] [facility] ID Date Data Source [id number] 06/10/2021 08:11:[address] [facility] Name Value Range Interpretation Code Description Data Source(s) TRANSFER FROM [facility] ID Date Data Source [id number] 05/19/2021 01:44:00 PM EST [facility] Name Value Range Interpretation Code Description Data Source(s) WEIGHT 104 kilos 104 kilos [facility] HEIGHT 167.64 centimeters 167.64 centimeter [facility] ID Date Data Source [id number] 05/14/2021 05:46:00 PM EDT [facility] Name Value Range Interpretation Code Description Data Source(s) WEIGHT 104.545 kilos 104.545 kilos [facility] HEIGHT 167.64 centimeters 167.64 centimeter [facility] ID Date Data Source [id number] 05/05/2021 08:15:00 PM EDT [facility] Name Value Range Interpretation Code Description Data Source(s) Weight Measurement Method 8 8 [facility] Weight 3680 3680 [facility] pital Temperature Source 7 7 [facility] Temperature 99.1 99.1 [facility] spital Respiratory Effort 1 1 [facility] Respiratory Rate 18 18 [facility] Pulse Assessment Method 4 4 G [facility] Pulse Rate 66 66 [facility] Height 66 66 [facility] pital Blood Pressure 128/55 128/55 [facility] ID Date Data Source [id number] 06/10/2021 02:10:00 AM EST [facility] Name Value Range Interpretation Code Description Data Source(s) WEIGHT 104 kilos 104 kilos [facility] HEIGHT 167.64 centimeters 167.64 centimeter [facility] ID Date Data Source [id number] 05/01/2021 09:46:00 AM EDT [facility] Name Value Range Interpretation Code Description Data Source(s) Weight Measurement Method 8 8 [facility] Weight 3668.492 3668.492 [facility] pital Temperature 98.4 98.4 [facility] spital Respiratory Rate 16 16 [facility] Pulse Assessment Method 4 4 [facility] Pulse Rate 68 68 [facility] 66 66 [facility] Blood Pressure 113/59 113/59 [facility] Weight Measurement Method 8 8 [facility] Weight 3668.492 3668.492 [facility] pital Height 66 66 [facility] pital ID Date Data Source [id number] 05/01/2021 01:52:00 AM EDT [facility] spital Name Value Range Interpretation Code Description Data Source(s) Weight Measurement Method 8 8 [facility] Weight 3679.991 3679.991 [facility] pital Respiratory Effort 1 1 [facility] Respiratory Rate 18 18 [facility] Height 66 66 [facility] pital Weight Measurement Method 8 8 [facility] Weight 3679.991 3679.991 [facility] pital Respiratory Effort 1 1 [facility] Respiratory Rate 18 18 [facility] Height 66 66 [facility] pital ID Date Data Source [id number] 05/07/2021 10:54:00 AM EDT [facility] spital Name Value Range Interpretation Code Description Data Source(s) Weight Measurement Method 8 8 [facility] Weight 3680 3680 [facility] pital Temperature Source 7 7 [facility] Temperature 98.8 98.8 [facility] spital Respiratory Effort 1 1 [facility] Respiratory Rate 18 18 [facility] Pulse Assessment Method 4 4 [facility] Pulse Rate 103 103 [facility] pital Height 66 66 [facility] pital Blood Pressure 162/60 162/60 [facility] ID Date Data Source [id number] 06/03/2021 02:08:00 AM EST [facility] Name Value Range Interpretation Code Description Data Source(s) WEIGHT 150 kilos 150 kilos [facility] HEIGHT 172.72 centimeters 172.72 centimeter [facility] ID Date Data Source [id number] 05/27/2021 02:09:00 AM EST [facility] Name Value Range Interpretation Code Description Data Source(s) WEIGHT 136.6 kilos 136.6 kilos [facility] HEIGHT 167.64 centimeters 167.64 centimeter [facility] WEIGHT 303 kilos 303 kilos [facility] HEIGHT 167.64 centimeters 167.64 [facility]imeter [facility] ID Date Data Source [id number] 04/24/2021 11:09:00 AM EDT [facility] Name Value Range Interpretation Code Description Data Source(s) Weight Measurement Method 8 8 [facility] Weight 3680 3680 [facility] pital Temperature Source 7 7 [facility] Temperature 98.0 98.0 [facility] Respiratory Effort 1 1 [facility] Respiratory Rate 18 18 [facility] Pulse Assessment Method 4 4 [facility] Pulse Rate 88 88 [facility] pital Height 66 66 [facility] pital Blood Pressure 147/57 147/57 [facility] ID Date Data Source [id number] 04/28/2021 04:53:00 PM EDT [facility] Name Value Range Interpretation Code Description Data Source(s) Weight Measurement Method 8 8 [facility] Weight 3679.074 3679.074 [facility] pital Temperature Source 7 7 [facility] Temperature 98.2 98.2 [facility] Res[facility] Effort 1 1 [facility] Respiratory Rate 16 16 [facility] Pulse Assessment Method 4 4 [facility] Pulse Rate 80 80 [facility] pital Height 66 66 [facility] pital Blood Pressure 132/72 132/72 [facility] ID Date Data Source [id number] 04/16/2021 12:24:00 PM EDT [facility] Name Value Range Interpretation Code Description Data Source(s) Weight Measurement Method 8 8 [facility] Weight 3680 3680 [facility] pital Temperature Source 7 7 [facility] Temperature 98.1 98.1 [facility] Respiratory Effort 1 1 [facility] Respiratory Rate 16 16 [facility] Pulse Assessment Method 4 4 [facility] Pulse Rate 98 98 [facility] Height 66 66 [facility] pital Blood Pressure 111/58 111/58 [facility] Weight Measurement Method 8 8 [facility] Weight 3680 3680 [facility] pital Temperature Source 7 7 [facility] Temperature 98.1 98.1 [facility] Respiratory Effort 1 1 [facility] Respiratory Rate 16 16 [facility] Pulse Assessment Method 4 4 [facility] Pulse Rate 98 98 [facility] pital Height 66 66 [facility] pital Blood Pressure 111/58 111/58 [facility] ID Date Data Source [id number] 04/19/2021 01:44:00 AM EDT [facility] Name Value Range Interpretation Code Description Data Source(s) WEIGHT 105 kilos 105 kilos [facility] HEIGHT 167.64 centimeters 167.64 centimeter [facility] ID Date Data Source [id number] 04/19/2021 01:44:00 AM EDT [facility] Name Value Range Interpretation Code Description Data Source(s) WEIGHT 131 kilos 131 kilos [facility] HEIGHT 170.18 centimeters 170.18 centimeter [facility] ID Date Data Source [id number] 05/11/2021 06:14:00 PM EDT [facility] Name Value Range Interpretation Code Description Data Source(s) Weight Measurement Method 8 8 [facility] Weight 3520 3520 [facility] pital Temperature Source 7 7 [facility] Temperature 97.4 97.4 [facility] Respiratory Effort 1 1 [facility] Respiratory Rate 18 18 [facility] Pulse Assessment Method 4 4 [facility] Pulse Rate 94 94 [facility] pital Height 66 66 [facility] pital Blood Pressure 136/75 136/75 [facility] Weight Measurement Method 8 8 [facility] Weight 3520 3520 [facility] pital Temperature Source 1 1 [facility] Temperature 98.5 98.5 [facility] Respiratory Effort 1 1 [facility] Respiratory Rate 16 16 [facility] Pulse Assessment Method 4 4 [facility] Pulse Rate 86 86 [facility] pital Height 66 66 [facility] pital Blood Pressure 131/98 131/98 [facility] Weight Measurement Method 8 8 [facility] Weight 3520 3520 [facility] pital Temperature Source 1 1 [facility] Temperature 98.5 98.5 [facility] spital Respiratory Effort 1 1 [facility] Respiratory Rate 18 18 [facility] Pulse Assessment Method 4 4 [facility] Pulse Rate 108 108 [facility] pital Height 66 66 [facility] pital Blood Pressure 131/92 131/92 [facility] ID Date Data Source [id number] 05/09/2021 04:32:00 PM EDT [facility] spital Name Value Range Interpretation Code Description Data Source(s) Weight Measurement Method 8 8 [facility] Weight 3680 3680 [facility] pital Temperature Source 7 7 [facility] Temperature 99.0 99.0 [facility] spital Respiratory Effort 1 1 [facility] Respiratory Rate 18 18 [facility] Pulse Assessment Method 4 4 [facility] Pulse Rate 102 102 [facility] pital Height 66 66 [facility] pital Blood Pressure 141/79 141/79 [facility] Weight Measurement Method 8 8 [facility] Weight 3680 3680 [facility] pital Temperature Source 7 7 [facility] Temperature 98 98 [facility] spital Respiratory Effort 1 1 [facility] Respiratory Rate 16 16 [facility] Pulse Assessment Method 4 4 [facility] Pulse Rate 122 122 [facility] pital Height 66 66 [facility] pital Blood Pressure 149/85 149/85 [facility] ID Date Data Source [id number] 03/25/2021 07:15:[address] [facility] Hospital Name Value Range Interpretation Code Description Data Source(s) TRANSFER FROM [facility] ID Date Data Source [id number] 05/09/2021 04:49:00 PM [facility] Name Value Range Interpretation Code Description Data Source(s) Weight Measurement Method 8 8 [facility] Weight 3680 3680 [facility] Temperature Source 7 7 [facility] Temperature 97.3 97.3 [facility] Respiratory Rate 18 18 [facility] Pulse Rate 106 106 [facility] Height 66 66 [facility] Blood Pressure 122/83 122/83 [facility] Weight Measurement Method 8 8 [facility] Weight 3680 3680 [facility] pital Temperature Source 7 7 [facility] Temperature 97.3 97.3 [facility] Respiratory Rate 18 18 [facility] Pulse Rate 106 106 [facility] Height 66 66 [facility] pital Blood Pressure 122/83 122/83 [facility] ID Date Data Source [id number] 05/10/2021 06:49:00 PM EDT [facility] Name Value Range Interpretation Code Description Data Source(s) Weight Measurement Method 8 8 [facility] Weight 3680 3680 [facility] pital Temperature Source 7 7 [facility] Temperature 99.8 99.8 [facility] Respiratory Effort 1 1 [facility] Respiratory Rate 18 18 [facility] Pulse Rate 117 117 [facility] pital Height 66 66 [facility] pital Blood Pressure 142/72 142/72 [facility] Weight Measurement Method 8 8 [facility] Weight 3680 3680 [facility] pital Temperature Source 7 7 [facility] Temperature 99.8 99.8 [facility] Respiratory Effort 1 1 [facility] Respiratory Rate 18 18 [facility] Pulse Rate 117 117 [facility] pital Height 66 66 [facility] pital Blood Pressure 142/72 142/72 [facility] ID Date Data Source [id number] 05/09/2021 02:14:00 PM EDT [facility] Name Value Range Interpretation Code Description Data Source(s) Weight Measurement Method 8 8 [facility] Weight 3680 3680 [facility] pital Temperature Source 7 7 [facility] Temperature 97.3 97.3 [facility] spital Respiratory Rate 16 16 [facility] Pulse Assessment Method 4 4 [facility] Pulse Rate 68 68 [facility] pital Height 66 66 [facility] pital Blood Pressure 113/59 113/59 [facility] Weight Measurement Method 8 8 [facility] Weight 3680 3680 [facility] pital Temperature Source 7 7 [facility] Temperature 98.7 98.7 [facility] spital Respiratory Rate 20 20 [facility] Pulse Rate 110 110 [facility] pital Height 66 66 [facility] pital Blood Pressure 135/70 135/70 [facility] ID Date Data Source [id number] 05/10/2021 09:58:00 AM EDT [facility] spital Name Value Range Interpretation Code Description Data Source(s) Weight Measurement Method 8 8 [facility] Weight 3680 3680 [facility] pital Temperature Source 7 7 [facility] Temperature 98.4 98.4 [facility] spital Respiratory Effort 1 1 [facility] Respiratory Rate 16 16 [facility] Pulse Assessment Method 4 4 [facility] Pulse Rate 78 78 [facility] pital Height 66 66 [facility] pital Blood Pressure 129/88 129/88 [facility] Weight Measurement Method 8 8 [facility] Weight 8113.011 8113.011 [facility] pital Temperature Source 7 7 [facility] Temperature 98.4 98.4 [facility] spital Respiratory Effort 1 1 [facility] Respiratory Rate 18 18 [facility] Pulse Assessment Method 4 4 [facility] Pulse Rate 109 109 [facility] pital Height 66 66 [facility] pital Blood Pressure 145/74 145/74 [facility] ID Date Data Source [id number] 02/26/2021 08:59:[address] [facility] Hospital Name Value Range Interpretation Code Description Data Source(s) [facility] ID Date Data Source [id number] 05/09/2021 08:17:00 PM EDT [facility] spital Name Value Range Interpretation Code Description Data Source(s) Weight Measurement Method 8 8 [facility] Weight 3680 3680 [facility] pital Temperature Source 7 7 [facility] Temperature 98.3 98.3 [facility] spital Respiratory Effort 1 1 [facility] Respiratory Rate 20 20 [facility] Pulse Assessment Method 4 4 [facility] Pulse Rate 108 108 [facility] pital Height 66 66 [facility] pital Blood Pressure 124/58 124/58 [facility] Weight Measurement Method 8 8 [facility] Weight 3680 3680 [facility] pital Temperature Source 7 7 [facility] Temperature 96.7 96.7 [facility] spital Respiratory Effort 1 1 [facility] Respiratory Rate 18 18 [facility] Pulse Assessment Method 4 4 [facility] Pulse Rate 94 94 [facility] Height 66 66 [facility] 126/81 126/81 [facility] Weight Measurement Method 8 8 [facility] Weight 3680 3680 [facility] pital Temperature Source 7 7 [facility] Temperature 96.7 96.7 [facility] spital Respiratory Effort 1 1 [facility] Respiratory Rate 18 18 [facility] Pulse Assessment Method 4 4 [facility] Pulse Rate 94 94 [facility] pital Height 66 66 [facility] pital Blood Pressure 126/81 126/81 [facility] ID Date Data Source [id number] 04/19/2021 01:44:00 AM EDT [facility] Name Value Range Interpretation Code Description Data Source(s) WEIGHT 136.6 kilos 136.6 kilos [facility] HEIGHT 170.18 centimeters 170.18 centimeter s [facility] WEIGHT 137.7 kilos 137.7 kilos [facility] HEIGHT 170.18 centimeters 170.18 centimeter s [facility] WEIGHT 137.2 kilos 137.2 kilos [facility] HEIGHT 170.18 centimeters 170.18 centimeter s [facility] WEIGHT 137.2 kilos 137.2 kilos [facility] HEIGHT 152.4 centimeters 152.4 centimeters [facility] WEIGHT 137.2 kilos 137.2 kilos [facility] HEIGHT 170.18 centimeters 170.18 centimeter s [facility] WEIGHT 134.5 kilos 134.5 kilos [facility] HEIGHT 170.18 centimeters 170.18 centimeter s [facility] ID Date Data Source [id number] 04/19/2021 01:44:00 AM EDT [facility] Name Value Range Interpretation Code Description Data Source(s) WEIGHT 136.3 kilos 136.3 kilos [facility] HEIGHT 152.4 centimeters 152.4 centimeters [facility] WEIGHT 136.3 kilos 136.3 kilos [facility] HEIGHT 170.18 centimeters 170.18 centimeter [facility] WEIGHT 136.8 kilos 136.8 kilos [facility] HEIGHT 170.18 centimeters 170.18 centimeter s [facility] WEIGHT 131.5 kilos 131.5 kilos [facility] HEIGHT 170.18 centimeters 170.18 centimeter s [facility] WEIGHT 128.8 kilos 128.8 kilos [facility] HEIGHT 170.18 centimeters 170.18 centimeter [facility] WEIGHT 126.8 kilos 126.8 kilos [facility] HEIGHT 170.18 centimeters 170.18 centimeter [facility] WEIGHT 124 kilos 124 kilos [facility] HEIGHT 170.18 centimeters 170.18 centimeter s [facility] ID Date Data Source [id number] 10/29/2020 09:38:[address] [facility] Hospital Name Value Range Interpretation Code Description Data Source(s) PREFERRED NAME Romel Urena [facility] ID Date Data Source [id number] 04/19/2021 01:44:00 AM EDT [facility] Name Value Range Interpretation Code Description Data Source(s) WEIGHT 124 kilos 124 kilos [facility] HEIGHT 167.64 centimeters 167.64 centimeter s [facility] ID Date Data Source [id number] 07/18/2020 09:56:[address] [facility] Hospital Name Value Range Interpretation Code Description Data Source(s) PREFERRED NAME Romel Urena [facility] Hospital TRANSFER FROM [facility] ID Date Data Source [id number] 04/19/2021 01:43:00 AM EDT [facility] Name Value Range Interpretation Code Description Data Source(s) WEIGHT 122.8 kilos 122.8 kilos [facility] HEIGHT 167.64 centimeters 167.64 centimeter s [facility] WEIGHT 100 kilos 100 kilos [facility] HEIGHT 167.64 centimeters 167.64 [facility]imeter [facility] ID Date Data Source [id number] 04/19/2021 01:43:00 AM EDT [facility] Name Value Range Interpretation Code Description Data Source(s) WEIGHT 124.2 kilos 124.2 kilos [facility] HEIGHT 167.64 centimeters 167.64 centimeter [facility] WEIGHT 123.4 kilos 123.4 kilos [facility] HEIGHT 167.64 centimeters 167.64 centimeter s [facility] WEIGHT 123.9 kilos 123.9 kilos [facility] HEIGHT 167.64 centimeters 167.64 centimeter [facility] WEIGHT 123.9 kilos 123.9 kilos [facility] HEIGHT 152.4 centimeters 152.4 centimeters [facility] WEIGHT 119.6 kilos 119.6 kilos [facility] HEIGHT 167.64 centimeters 167.64 centimeter s [facility] WEIGHT 118.2 kilos 118.2 kilos [facility] HEIGHT 167.64 centimeters 167.64 centimeter [facility] WEIGHT 112.6 kilos 112.6 kilos [facility] HEIGHT 167.64 centimeters 167.64 centimeter s [facility] WEIGHT 100 kilos 100 kilos [facility] HEIGHT 167.64 centimeters 167.64 centimeter s [facility] ID Date Data Source [id number] 04/19/2021 01:43:00 AM EDT [facility] Name Value Range Interpretation Code Description Data Source(s) WEIGHT 100 kilos 100 kilos [facility] HEIGHT 167.64 centimeters 167.64 centimeter [facility] ID Date Data Source [id number] 04/19/2021 01:43:00 AM EDT [facility] Name Value Range Interpretation Code Description Data Source(s) WEIGHT 110 kilos 110 kilos [facility] HEIGHT 167.64 centimeters 167.64 centimeter [facility] WEIGHT 100 kilos 100 kilos [facility] HEIGHT 167.64 centimeters 167.64 centimeter [facility] ID Date Data Source [id number] 04/19/2021 01:43:00 AM EDT [facility] Name Value Range Interpretation Code Description Data Source(s) WEIGHT 104.4 kilos 104.4 kilos [facility] HEIGHT 152.4 centimeters 152.4 centimeters [facility] WEIGHT 100 kilos 100 kilos [facility] HEIGHT 167.64 centimeters 167.64 centimeter [facility] Patient Treatment Plan of Care Planned Activity Planned Date Details Description Data Source (s) aripiprazole 5 MG Oral Tablet 06/08/2021 09:00:00 AM [facility] Loratadine 10 MG Oral Tablet 06/08/2021 09:00:00 AM [facility] Sertraline 50 MG Oral Tablet 06/08/2021 09:00:00 AM [facility] diphenhydrAMINE (BENADRYL) 50 MG/ML injection 06/08/2021 08:50:41 A M [facility] chlorproMAZINE (THORAZINE) 50 MG/2ML injection 06/08/2021 08:49:38 AM [facility] montelukast 10 MG Oral Tablet 06/07/2021 10:00:00 PM [facility] olanzapine 5 MG Oral Tablet 06/07/2021 10:00:00 PM [facility] Prazosin 1 MG Oral Capsule 06/07/2021 10:00:00 PM [facility] Hydroxyzine Hydrochloride 50 MG Oral Tablet 06/07/2021 06:59:33 PM [facility] montelukast 10 MG Oral Tablet 05/29/2021 10:00:00 PM [facility] olanzapine 5 MG Oral Tablet 05/29/2021 10:00:00 PM [facility] Prazosin 1 MG Oral Capsule 05/29/2021 10:00:00 PM [facility] Calcium Carbonate 500 MG Chewable Tablet 05/29/2021 11:42:07 AM [facility] Ondansetron 4 MG Disintegrating Oral Tablet 05/28/2021 11:03:22 PM [facility] Hydroxyzine Hydrochloride 50 MG Oral Tablet 05/28/2021 11:03:19 PM [facility] Magnesium Hydroxide 80 MG/ML Oral Suspension 05/28/2021 11:03:16 PM [facility] Escitalopram 10 MG Oral Tablet 05/22/2021 12:00:00 AM [facility] aripiprazole 5 MG Oral Tablet 05/20/2021 12:00:00 AM [facility] Sertraline 50 MG Oral Tablet 04/07/2021 12:00:00 AM [facility] Prazosin 1 MG Oral Capsule 04/05/2021 10:00:00 PM [facility] Ondansetron 4 MG Disintegrating Oral Tablet 04/05/2021 06:25:36 AM [facility] Magnesium Hydroxide 80 MG/ML Oral Suspension 04/05/2021 06:25:35 AM [facility] Aluminum Hydroxide 40 MG/ML / Magnesium Hydroxide 40 MG/ML / Simethicone 4 MG/ML Oral Suspension 04/05/2021 06:25:35 AM [facility] Melatonin 5 MG Oral Tablet 04/05/2021 06:25:23 AM [facility] aripiprazole 10 MG Oral Tablet 03/25/2021 12:00:00 AM [facility] Escitalopram 5 MG Oral Tablet 03/15/2021 12:00:00 AM [facility] Prazosin 2 MG Oral Capsule 03/15/2021 12:00:00 AM [facility] Escitalopram 5 MG Oral Tablet 03/15/2021 12:00:00 AM [facility] Prazosin 2 MG Oral Capsule 03/15/2021 12:00:00 AM [facility] Loratadine 10 MG Oral Tablet 02/26/2021 12:00:00 AM [facility] topiramate 25 MG Oral Tablet 02/26/2021 12:00:00 AM [facility] Sertraline 50 MG Oral Tablet 02/26/2021 12:00:00 AM [facility] Lurasidone Hydrochloride 80 MG Oral Tablet 02/26/2021 12:00:00 AM [facility] topiramate 25 MG Oral Tablet 02/26/2021 12:00:00 AM [facility] Sertraline 50 MG Oral Tablet 02/26/2021 12:00:00 AM [facility] Lurasidone Hydrochloride 80 MG Oral Tablet 02/26/2021 12:00:00 AM [facility] Loratadine 10 MG Oral Tablet 02/26/2021 12:00:00 AM [facility] Prazosin 2 MG Oral Capsule 02/25/2021 12:00:00 AM [facility] montelukast 10 MG Oral Tablet 02/25/2021 12:00:00 AM [facility] Propranolol Hydrochloride 10 MG Oral Tablet 02/25/2021 12:00:00 AM [facility] Trazodone Hydrochloride 50 MG Oral Tablet 02/25/2021 12:00:00 AM [facility] Pravastatin Sodium 20 MG Oral Tablet 02/25/2021 12:00:00 AM [facility] Trazodone Hydrochloride 50 MG Oral Tablet 02/25/2021 12:00:00 AM [facility] Propranolol Hydrochloride 10 MG Oral Tablet 02/25/2021 12:00:00 AM [facility] Prazosin 2 MG Oral Capsule 02/25/2021 12:00:00 AM [facility] Pravastatin Sodium 20 MG Oral Tablet 02/25/2021 12:00:00 AM [facility] montelukast 10 MG Oral Tablet 02/25/2021 12:00:00 AM [facility] chlorproMAZINE (THORAZINE) 50 MG/2ML injection 02/22/2021 05:23:23 PM [facility] diphenhydrAMINE (BENADRYL) 50 MG/ML injection 02/22/2021 05:23:16 P M [facility] Hydroxyzine Hydrochloride 50 MG Oral Tablet 02/21/2021 08:18:25 PM [facility] Magnesium Hydroxide 80 MG/ML Oral Suspension 02/21/2021 08:18:18 PM [facility] Lurasidone Hydrochloride 40 MG Oral Tablet [Latuda] 02/14/20 12:00:00 AM [facility] Prazosin 1 MG Oral Capsule 02/13/2021 12:00:00 AM [facility] carbamide peroxide 65 MG/ML Otic Solution 01/02/2021 12:00:00 AM [facility] Ciprofloxacin 3 MG/ML Ophthalmic Solution 01/02/2021 12:00:00 AM [facility] Ibuprofen 400 MG Oral Tablet 01/02/2021 12:00:00 AM [facility] Sertraline 100 MG Oral Tablet 01/02/2021 12:00:00 AM [facility] Naproxen 250 MG Oral Tablet 08/22/2020 12:00:00 AM [facility] Chlorpromazine hydrochloride 100 MG Oral Tablet 08/20/2020 12:00:00 AM [facility] Chlorpromazine hydrochloride 25 MG Oral Tablet 08/20/2020 12:00:00 AM [facility] Lorazepam 1 MG Oral Tablet 08/20/2020 12:00:00 AM [facility] topiramate 100 MG Oral Tablet 08/20/2020 12:00:00 AM [facility] 2 ML aripiprazole 200 MG/ML Prefilled Syringe [Abilify ] 06/18/2020 12:00:00 AM [facility] duloxetine 30 MG Delayed Release Oral Capsule 12/28/2019 12:00:00 A M [facility] topiramate 50 MG Oral Tablet 09/13/2019 12:00:00 AM [facility] Prazosin 1 MG Oral Capsule 06/17/2019 12:00:00 AM [facility] Loratadine 10 MG Oral Tablet [facility] Lurasidone Hydrochloride 40 MG Oral Tablet [facility] Pravastatin Sodium 20 MG Oral Tablet [facility] aripiprazole 10 MG Oral Tablet [facility] Loratadine 10 MG Oral Capsule [facility] olanzapine 5 MG Oral Tablet [facility] Sertraline 100 MG Oral Tablet [facility] Nicotine 2 MG Chewing Gum [facility] Sertraline [address] [facility] Propranolol Hydrochloride [address] [facility] Prazosin 1 MG Oral Capsule [facility] Ondansetron [address] [facility] Citalopram [address] [facility]
[2021-06-15 13:02] LABS: BASO % 0.3 % (0.0-1.0); EOS # 0.1 10^3/uL (0.0-0.5); EOS % 1.6 % (0.0-3.0); HEMOGLOBIN 12.3 g/dl (12.0-15.5); LYMPH # 2.1 10^3/uL (1.5-5.0); MEAN CORPUSCULAR HEMOGLOBIN 29.1 pg (27.0-33.0); MEAN CORPUSCULAR HGB CONC 32.4 g/dl (32.0-36.5); MEAN CORPUSCULAR VOLUME 89.8 fl (80.0-96.0); MONO # 0.6 10^3/uL (0.0-0.8); MONO % 7.3 % (2.0-8.0); NEUTROPHILS # 4.9 10^3/uL (1.5-8.5); NEUTROPHILS % 63.4 % (36.0-66.0); PLATELET COUNT, AUTOMATED 264 10^3/uL (150-450); RED BLOOD COUNT 4.23 10^6/uL (4.00-5.40); WHITE BLOOD COUNT 7.6 10^3/uL (4.0-10.0)
--- OUTSIDE RECORDS SUMMARY | 2021-06-15 13:06 | CCD ---
Author Author [facility] Address Unknown Phone Unavailable Support Name Relationship Address Phone TULIO HUTCHISON Next Of Kin [address] [facility] [address] [place] [address] LIVING, TRANSITIONAL Next Of Kin [address] [place] [address] Unavailable N, PER PT ONE Next Of Kin [address] [facility] [address], [place] [address] WILMAR DUENAS Next Of Kin [address] [place] [address] NO ONE, PATIENT PER Next Of Kin [address] [place] [address] JOAN WOODWARD Next Of Kin Unknown Unavailable Yamileth Aleman Next Of Kin [address] [place] [address] CONTACT, NO Next Of Kin Unknown NO, CONTACT Next Of Kin Unknown U Next Of Kin Unknown Unavailable TLS, RESIDENTS [facility] Next Of Kin [address] [place] [address] Camelia Martinez Next Of Kin [address] [place] [address] UN Next Of Kin Unknown Unavailable none to, list Next Of Kin [address] [facility] [address] [place] [address] ALIZA HATCH Next Of Kin [address] [place] [address] KAREN GODFREY Next Of Kin [address] [place] [address] TL, S Next Of Kin [address] [place] [address] PEPPER TORIBIO Next Of Kin Unknown UE Next Of Kin Unknown Unavailable PEPPER CHOI Next Of Kin [address] [place] [address] S Next Of Kin Unknown Unavailable Mainor HATCH Next Of Kin [address] [place] [address] ST Next Of Kin Unknown Unavailable Jorge HATCH Next Of Kin [address] [place] [address] Care Team Providers Care Computer Console Operator Name Role Phone LaBarge, Zeyad Unavailable SYSTEM [...] Sohail GROVER MD Unavailable Unavailable Cortney, Vish MAJOR ACCOUNT MANAGER Unavailable Cortney, Vish MAJOR ACCOUNT MANAGER Unavailable Cortney, Vish MAJOR ACCOUNT MANAGER Unavailable Mariam HICKS MD Unavailable Unavailable Mariam [...] Unavailable TARAH BOWMAN MD Unavailable Unavailable COLBY, CHRISTIANITY MD Unavailable Unavailable BOWMAN, CHRISTIANITY MD Unavailable Unavailable BOWMAN, CHRISTIANITY MD Unavailable Unavailable BOWMAN, CHRISTIANITY MD Unavailable Unavailable BOWMAN, CHRISTIANITY MD Unavailable Unavailable BOWMAN, CHRISTIANITY MD Unavailable Unavailable COLBY CHRISTIANITY MD Unavailable Unavailable GilesMainor MD Unavailable Unavailable GilesMainor MD Unavailable Unavailable GilesMainor ascencio MD Unavailable Unavailable GilesMainor MD Unavailable Unavailable IRMA SMITH, DEMETRI Unavailable Unavailable Janette Martinez MD Unavailable Unavailable Donte, K Tammie PMH-MAJOR ACCOUNT MANAGER Unavailable Unavailable Donte, K Tammie PMH-MAJOR ACCOUNT MANAGER Unavailable Unavailable Donte, K Tammie PMH-MAJOR ACCOUNT MANAGER Unavailable Unavailable Donte, K Tammie PMH-MAJOR ACCOUNT MANAGER Unavailable Unavailable [place], K Tammie PMH-MAJOR ACCOUNT MANAGER Unavailable Unavailable Donte, K Tammie PMH-MAJOR ACCOUNT MANAGER Unavailable Unavailable [place], K Tammie PMH-MAJOR ACCOUNT MANAGER Unavailable Unavailable Donte, K Tammie PMH-MAJOR ACCOUNT MANAGER Unavailable Unavailable Donte, K Tamime PMH-MAJOR ACCOUNT MANAGER Unavailable Unavailable Donte, K Tammie PMH-MAJOR ACCOUNT MANAGER Unavailable Unavailable Maria De Jesus RIBEIRO-Janette CORDERO [...] Unavailable Macario, F Zaki PA Unavailable Unavailable [place], F Zaki PA Unavailable Unavailable [place], F Zaki PA Unavailable Unavailable Macario, F Zaki PA Unavailable Unavailable Macario, F Zaki PA Unavailable Unavailable Macario, F Zaki PA Unavailable Unavailable Macario, F Zaki PA Unavailable Unavailable [place], F Zaki PA Unavailable Unavailable PHYSICIAN, PHYSICIAN [...] Unavailable WADE KELLEY MD Unavailable Unavailable WADE KLELEY MD Unavailable Unavailable WADE KELLEY MD Unavailable [...] Unavailable Unavailable NILS ARGUETA MD Unavailable Unavailable Sheffield, Oskar Bai MD Unavailable Unavaila ble Arina, Oskar Bai MD Unavailable Unavaila ble [place], Oskar Bai MD Unavailable Unavaila ble [place], Oskar Bai MD Unavailable Unavaila ble [place], Oskar Bai MD Unavailable Unavaila ble [place], Oskar Bai MD Unavailable Unavaila ble [place], Oskar Bai MD Unavailable Unavaila ble [place], Oskar Bai MD Unavailable Unavaila ble [place], Oskar Bai MD Unavailable Unavaila ble [place], Oskar Bai MD Unavailable Unavaila ble [place], Oskar Bai MD Unavailable Unavaila ble [place], Oskar Bai MD Unavailable Unavaila ble Liliam Negron NP Unavailable Unavailable Sohail Muñoz MD Unavailable Unavailable Sohail Muñoz MD Unavailable Unavailable Sohail Muñoz MD Unavailable Unavailable Colby, Anoop Unavailable Unavailable Colby, Anoop Unavailable Unavailable Colby Anoop Unavailable Unavailable ZEGIL, D THERESA VP OF GLOBAL MARKETING Unavailable Unavailable ZEGIL, D THERESA VP OF GLOBAL MARKETING Unavailable Unavailable ZEGIL, D THERESA VP OF GLOBAL MARKETING Unavailable Unavailable Ramón Levy MD Unavailable Unavailable [...] is protected by Article 27-F of the [facility] Public Health law. If you continue you may have access to information: Regarding HIV / AIDS; Provided by facilities licensed or operated by the [facility] Office of Mental Health; or Provided by the [facility] Office for People With Developmental Disabilities. If such information is present, then the following [facility] mandated warning applies: This information has [...] law may result in a fine or alf sentence or both. A general authorization for the release of medical or other information is NOT sufficient authorization for further disc losure. Allergies and Adverse Reactions Type Description Substance Reaction Status Data Source(s ) Propensity to adverse reactions to substance Risperdal Risperidone 1 MG Oral Tablet [Risperdal] Active [facility] Drug allergy Drug allergy risperidone Unknown Reaction [facility] Drug allergy Drug allergy haloperidol (From Haldol) Unknown Reaction [facility] Propensity to adverse reactions to substance Risperdal Risperidone 1 MG Oral Tablet [Risperdal] Active [facility] ([facility]) Drug allergy risperidone risperidone ADDITIONAL UNSPECIFIED [facility] Drug allergy haloperidol haloperidol ADDITIONAL UNSPECIFIED [facility] SEASONAL ALLERGIES SEASONAL ALLERGIES [facility] ([facility]) No Allergies No Allergies [facility] ([facility]) No allergies to food No allergies to food [facility] ([facility]) NKDA NKDA [facility] ([facility]) Drug allergy haloperidol [facility]oper[facility]ol [facility] Family History Family Member Name Family Member Gender Family Member Status Date o f Status Description Data Source(s) Unknown Male Condition Family Member ADD / ADHD S [facility] Encounters Encounter Providers Location Date Indications Data Source(s ) Telemed Diagnostic Eval Attender: Santiago Giles MD [facility] 06/12/2021 11:00:00 AM EST - 06/12/2021 11:00:00 AM EST [facility] ([facility]) Attender: Santiago Giles MD 06/12/2021 12:00:00 AM EST [facility] ([facility]) Emergency Attender: MAGY DIAMOND MD ES1-CP2 021 08:40:00 AM EST - 06/10/2021 10:22:00 AM EST [facility] Patient discharged. Emergency Attender: ER PHYSICIAN 06/10/2021 01:35:54 AM [facility] Emergency Attender: OSBALDO JENKINS MDAttender: ER PHYSICIAN 06/09/2021 10:51:00 PM EST - 06/10/2021 11:26:00 AM EST SUICIDE THOUGHS ANEXITY [facility] SUICIDE THOUGHS ANEXITY Patient discharged. Inpatient Attender: Velasquez Lemos er: VELASQUEZ Richmondender: MAGY DIAMOND MDAdmitter: MAGY DIAMOND MD [id number] 06/07/2021 06:21:00 PM EST - 06/09/2021 11:24:00 AM EST [facility] Patient discharged. Extended Individual Psychotherapy - 45 min Attender: Ingrid Farley [facility] 06/03/2021 02:00:00 AM EST - 06/03/2021 02:00:00 AM EST [facility] ([facility]) Attender: Zeyad Farley 06/03/2021 12:00:00 AM EST [facility] ([facility]) Inpatient Attender: Velasquez Lemos er: VELASQUEZ ESTRADAAttender: Sadia Cortez MDAttender: Aníbal MadrigalAttender: ANÍBAL DOMITILAAdmitter: Sadia Cortez MD [id number] 05/28/2021 09:02:00 PM EST - 05/30/2021 01:26:00 PM EST [facility] Patient discharged. IP PSYCH Attender: Richardson bui MDAttender: Demetri ToddusAttender: DEMETRI SOLIS MDAdmitter: Richardson Santa MDConsultant: DOREEN BURLESON MD [id number] 05/21/2021 04:00:00 PM EST - 05/22/2021 01:41:00 PM EST [facility] Patient discharged. Inpatient Attender: AMADA SIMON MD Attender: DYLAN RIBEIROAttender: BROOKLYN ONEILL MDAttender: ZEESHAN GROVER MDAdmitter: BROOKLYN ONEILL MD ER-3RD 05/13/2021 11:10:00 PM EDT - 05/15/2021 11:10:00 AM EDT [facility] Patient discharged. [facility] 05/12/2021 12:00:00 AM EDT [facility] ([facility]) Inpatient Attender: BROOKLYN ONEILL MDAttender: ZEESHAN GROVER MDAdmitter: BROOKLYN ONEILL MD ER-3RD 05/06/2021 02:17:00 PM EDT - 05/08/2021 04:22:00 PM EDT [facility] Patient discharged. Emergency Attender: THERESA BARAHONA [facility] ED-ED 04/12 07:56:00 PM EDT - 05/05/2021 11:21:00 PM EDT suicidal ideation [facility] suicidal ideation Patient discharged. Inpatient Attender: BOGDAN MACIAS MDAtten víctor: DYLAN RIBEIROAttender: BROOKLYN ONEILL MDAttender: KYLIE العلي MDAdmitter: BROOKLYN ONEILL MD ER-3RD 05/01/2021 04:51:00 PM EDT - 05/05/2021 11:59:00 AM EDT [facility] Patient discharged. Emergency Attender: Zaki OWENS ED-ED 01:54:00 AM EDT - 05/01/2021 09:45:00 AM EDT PSYCHIATRIC [facility] PSYCHIATRIC Patient discharged. Emergency Attender: Zaki OWENS ED-ED 11:28:00 PM EDT - 05/01/2021 01:25:00 AM EDT DEPRESSION [facility] DEPRESSION Patient discharged. Emergency Attender: Angelica Martinez MDAttender: Angelica Martinez MD ED-ED 04/30/2021 07:03:00 PM EDT - 04/30/2021 10:30:00 PM EDT [facility] DEPRESSION Patient discharged. Inpatient Attender: BOGDAN MACIAS MDAtten víctor: BROOKLYN ONEILL MDAttender: Ramón Levy MDAdmitter: BROOKLYN ONEILL MD ER-3RD 04/27/20 04:51:00 AM EDT - 04/30/2021 02:30:00 PM EDT [facility] Patient discharged. Inpatient Attender: BROOKLYN ONEILL MDAttender: Ramón Levy MDAdmitter: BROOKLYN ONEILL MD ER-3RD 04/26/2021 02:30:00 AM EDT - 04/26/2021 03:15:00 PM EDT [facility] Patient discharged. Emergency Attender: LAUREEN LUIS ES1-CP2 021 01:05:00 PM EDT - 04/24/2021 04:29:00 PM EDT [facility] Patient discharged. Emergency Attender: Zaki OWENS ED-ED 08:53:00 PM EDT - 04/24/2021 11:08:00 AM EDT SUICIDAL THOUGHTS,ANXIETY [facility] SUICIDAL THOUGHTS,ANXIETY Patient discharged. Emergency Attender: Ramón Levy MD ER-ER 1 10:29:00 PM EDT - 04/21/2021 03:43:00 PM EDT [facility] Patient discharged. Emergency Attender: ZEESHAN GROVER MD ER-ER 03/2021 01:17:00 AM EDT - 04/19/2021 02:55:00 PM EDT [facility] Patient discharged. Emergency Attender: KENRICK ZHOU PAAttender: Zaki OWENS ED-ED 04/17/2021 01:21:00 AM EDT - 04/17/2021 01:48:00 PM EDT CONSUMED CLEANING AGENT [facility] CONSUMED CLEANING AGENT Patient discharged. [facility]billable [facility] 04/14/2021 12:00:00 AM EDT [facility]) Emergency Attender: Nils Argueta MD ER-ER 2020 08:28:00 PM EDT - 04/14/2021 04:43:00 PM EDT [facility] Patient discharged. Emergency Attender: THERESA BARAHONA [facility] ED-ED 08/2020 03:11:00 AM EDT - 04/13/2021 06:45:00 PM EDT THINKING OF SELF HARM [facility] THINKING OF SELF HARM Patient discharged. Inpatient Attender: BOGDAN Hassan víctor: ZEESHAN GROVER MDAdmitter: BOGDAN MACIAS MD ER-3RD 04/09/2021 12:50:00 PM EDT - 04/11/2021 10:46:00 AM EDT [facility] Patient discharged. Inpatient Attender: Deejay Pearson PA-spinning mule tender: JOSE HICKS MDAttender: Leeroy Sharpttender: LEEROY COLBERT .Admitter: JOSE HICKS MDReferrer: JOSE HICKS MD [id number] 04/05/2021 12:00:00 AM EDT - 04/07/2021 12:21:00 PM EDT [facility] suicidal Patient discharged. Emergency Attender: LAUREEN LUIS ES1-CP2 021 11:17:00 PM EDT - 04/04/2021 01:56:00 PM EDT [facility] Patient discharged. Inpatient Attender: BOGDAN MACIAS MDAtten víctor: BROOKLYN ONEILL MDAttender: Nils Argueta MDAdmitter: BROOKLYN ONEILL MD ER-3RD 04/01/2021 0 6:08:00 PM EDT - 04/03/2021 10:22:00 AM EDT [facility] Patient discharged. Emergency Attender: KENRICK ZHOU PAAttender: Zaki OWENS ED-ED 03/27/2021 10:08:00 PM EDT - 03/30/2021 06:15:00 AM EDT SUICIDAL THOUGHTS,ANXIETY [facility] SUICIDAL THOUGHTS,ANXIETY Patient discharged. Emergency Attender: Leeroy Dawn PAAttender: Leeroy OWENS ED-ED 03/25/2021 08:09:00 PM EDT - 03/25/2021 11:25:00 PM EDT MENTAL HEALTH ISSUES [facility] MENTAL HEALTH ISSUES Patient discharged. Inpatient Attender: Velasquez Lemos er: VELASQUEZ ESTRADAAttender: TARAH BOWMAN MDAdmitter: TARAH BOWMAN MD [id number] 03/21/2021 02:54:00 AM EDT - 03/24/2021 12:21:00 PM EDT [facility] Patient discharged. Psychiatric Diagnostic Evaluation (Non-Medical) Attender: Rosa larios [facility] 03/20/2021 01:00:00 AM EDT - 03/20/2021 01:00:00 AM EDT [facility] ([facility]) Emergency Attender: THERESA BARAHONA [facility] ED-ED 03/2021 12:32:00 AM EDT - 03/20/2021 01:00:00 AM EDT MENTAL HEALTH ISSUES [facility] MENTAL HEALTH ISSUES Patient discharged. Attender: Zeyad Farley 03/20/2021 12:00:00 AM EDT [facility] ([facility]) Outpatient Attender: Darren Negron NP 03/17/2021 09:0 7:00 PM EDT Amb Documentation [facility] Amb Documentation Outpatient Attender: Darren Negron NPAdm itter: Divya Orozco NPConsultant: Divya Orozco NP 03/16/2021 09:50:00 PM EDT Suicidal Ideations [facility] Suicidal Ideations Inpatient Attender: Divya Floresrebecca NPAdmitter: Divya gonzales MAJOR ACCOUNT MANAGER 03/16/2021 09:50:00 PM EDT - 03/19/2021 11:43:00 AM EDT Suicidal Ideations [facility] Suicidal Ideations Patient discharged. Outpatient Attender: Vish Barr NPAd mitter: Divya Orozco NPConsultant: Divya Orozco MAJOR ACCOUNT MANAGER 03/16/2021 09:50:00 PM EDT Suicidal Ideations [facility] Suicidal Ideations Outpatient Attender: Divya Orozco NPA dmitter: Divya Orozco NPConsultant: Divya Orozco MAJOR ACCOUNT MANAGER 03/16/2021 09:50:00 PM EDT Suicidal Ideations [facility] Suicidal Ideations Emergency Attender: Anoop Bowman ER-ER 03/16/20 05:07:00 AM EDT - 03/16/2021 07:30:00 PM EDT [facility] Patient discharged. Emergency Attender: Leeroy OWENS ED-ED 021 11:49:00 PM EDT - 03/16/2021 01:34:00 AM EDT MEDICATION SWITCH FOR MENTAL HEALTH [facility] MEDICATION SWITCH FOR MENTAL HEALTH Patient discharged. IP PSYCH Attender: WADE KELLEY MD Attender: YOLANDE LIEBERMAN MDAttender: Marky Grant MDAdmitter: YOLANDE LIEBERMAN MDConsultant: William CoeirConsultant: WILLIAM CARREON MD 2E-2A 03/13/2021 11:02:00 AM EDT - 03/15/2021 01:22:00 PM EDT [facility] Patient discharged. [facility]-billable [facility] 03/12/2021 12:00:00 AM EDT [facility] ([facility]) Emergency Attender: Leeroy RUIZttender: KENRICK OWENS ED-ED 03/05/2021 06:28:00 PM EDT - 03/06/2021 01:47:00 PM EDT MENTAL HEALTH ISSUES [facility] MENTAL HEALTH ISSUES Patient discharged. Emergency Attender: Ramirez Muñoz MD ED-ED 03/03/20 12:40:00 AM EDT - 03/03/2021 09:59:00 AM EDT [facility] MENTAL [facility] Patient discharged. Emergency Attender: Nils Argueta MD ER-ER 2020 02:30:00 AM EDT - 03/02/2021 11:27:00 AM EDT [facility] Patient discharged. Emergency Attender: Nils Argueta MD ER-ER 2020 09:08:00 PM EDT - 03/01/2021 12:39:00 PM EDT [facility] Patient discharged. Outpatient [address] [address] [id number]-Mobile Integration Team 02/27/2021 02:45:00 PM EDT [facility] ([facility]) Patient admitted. Inpatient Attender: MAGY Clifton nder: Velasquez EstradaAttender: VELASQUEZ ESTRADAAdmitter: MAGY DIAMOND MDReferrer: PROVIDER SYSTEM IN 6[facility] 02/21/2021 12:14:00 PM EDT - 02/25/2021 11:39:00 AM EDT [facility] Patient discharged. Emergency Attender: Ramón eLvy MD ER-ER 0 02/20/2021 10:45:00 PM EDT - 02/21/2021 11:44:00 PM EDT [facility] Patient discharged. Emergency Attender: Ramón Levy MD ER-ER 0 02/19/2021 02:28:00 AM EDT - 02/19/2021 10:15:00 AM EDT [facility] Patient discharged. Emergency Attender: Anoop Bowman ER-ER 02/18/20 03:10:00 AM EDT - 02/17/2021 01:54:00 PM EDT [facility] Patient discharged. Emergency Attender: Santiago Stewartender: Anoop Hayward R-ER 02/15/2021 08:00:00 PM EDT - 02/16/2021 01:02:00 PM EDT [facility]ital Patient discharged. Emergency Attender: KENRICK OWENS ED-ED 02/14 09:21:00 PM EDT - 02/14/2021 11:01:00 PM EDT VOMITING,DIARRHEA [facility] VOMITING,DIARRHEA Patient discharged. Inpatient Attender: DYLAN Michelle er: BROOKLYN ONEILL MDAttender: AMADA SIMON MDAttender: KYLIE العلي MDAdmitter: AMADA SIMON MD ER-3RD 01/03/2021 11:03:00 AM EDT - 02/13/2021 11:40:00 AM EDT [facility] Patient discharged. Outpatient Attender: Tammie Kent [facility]-MAJOR ACCOUNT MANAGER [facility] 11/13/2020 09:30:00 AM EDT - 11/13/2020 09:30:00 AM EDT [facility] ([facility]) Attender: Tammie Kent [facility]-MAJOR ACCOUNT MANAGER 11/13/2020 12: 00:00 AM [facility]T [facility] Inpatient Attender: BROOKLYN ONEILL MDAttender: BOGDAN MACIAS MDAttender: KYLIE العلي MDAdmitter: BOGDAN MACIAS MD ER-3RD 10/31/2020 0 8:49:00 AM EDT - 01/01/2021 01:05:00 PM EDT [facility] Patient discharged. Outpatient [id number] 10/29/2020 09:35:00 PM EDT [facility] Psych Inpatient Attender: ZEESHAN GROVER MD Attender: BROOKLYN ONEILL MDAttender: ANSHUL STRAUSS MDAdmitter: BROOKLYN ONEILL MD ER-3RD 10:58:00 AM EDT - 10/29/2020 12:50:00 PM EDT [facility] Patient discharged. Extended Individual Psychotherapy - 45 min Attender: Ingrid salazar [facility] 08/27/2020 11:00:00 AM EST - 08/27/2020 11:00:00 AM EST [facility] ([facility]) Attender: Zeyad [facility] 08/27/2020 12:00:00 AM EST [facility] Psychiatric Diagnostic Evaluation (Non-Medical) Attender: Rosa larios [facility] 08/23/2020 10:00:00 AM EST - 08/23/2020 10:00:00 AM EST [facility] ([facility]) Attender: Zeyad LaBarge 08/23/2020 12:00:00 AM EST [facility] ([facility]) Outpatient Referrer: FORTUNATO BUTCHER DO 07/11/2020 02 :52:00 PM EST suicide attempt, borderline personality disorder, depression [facility] suicide attempt, borderline personality disorder, depression Extended Individual Psychotherapy - 45 min Attender: Jessica Sotomayor [facility] 06/24/2020 11:00:00 AM EST - 06/24/2020 11:00:00 AM EST [facility] ([facility]) Attender: Fariba Sotomayor 06/24/2020 12:00:00 AM EST [facility] ([facility]) Inpatient Attender: FILI CANELA MDAt tender: Nils Argueta MDAttender: NILS ARGUETA MDAdmitter: FILI CANELA MD ER-3RD 06/15/2020 04:05: 00 AM EST - 06/17/2020 01:23:00 PM EST [facility] Patient discharged. Inpatient Attender: BOGDAN MACIAS MDAtten víctor: BROOKLYN ONEILL MDAttender: KYLIE العلي MDAdmitter: BROOKLYN ONEILL MD ER-3RD 12/2019 09:22:00 PM EDT - 05/17/2020 08:58:00 AM [facility] Patient discharged. Inpatient Attender: EDUARDO Salazar MDAttender: BOGDAN MACIAS MDAttender: AMADA SIMON MDAdmitter: AMADA SIMON MD ER-3RD 020 10:06:00 PM EDT - 12/13/2019 10:30:00 AM EDT [facility] Patient discharged. Inpatient Attender: BOGDAN MACIAS MDAtten víctor: FILI CANELA MDAttender: Ramón Anguiano MDAdmitter: BOGDAN MACIAS MD ER-3RD 11/02/2019 10:24:00 AM EDT - 11/08/2019 12:07:00 PM EDT [facility] Patient discharged. Inpatient Attender: BOGDAN MACIAS MDAtten víctor: BROOKLYN ANGUSMARY ANNSANDY MDAttender: AMADA SIMON MDAttender: ANSHUL STRAUSS MDAdmitter: AMADA SIMON MD ER-3RD 08/04/2019 06:28:00 PM EST - 08/11/2019 11:25:00 AM [facility] Patient discharged. Emergency Attender: ANSHUL STRAUSS MD ER-ER 1 07/13/2017 06:59:00 PM EDT - 05/18/2018 06:04:00 PM [facility] Emergency Attender: EDUARDO JERRY MD ER-ER 04/12/2018 05:21:00 PM EDT - 04/16/2018 06:48:00 PM EDT [facility] Functional Status Immunizations Vaccine Date Status Description Data Source(s) COVID-19 (Sophia/J and J), vector-nr, [id number], PF, 0. 5 mL 11/12/2020 12:00:00 AM EDT completed [facility] COVID-19 VACCINE Sophia 11/12/2020 12:00:00 AM EDT completed [facility] Vaccine Series Complete: YESThis Data wa s Submitted to [facility] Via LVL6. Medications Medication Brand Name Start Date Product [...] on 06/08/21 at 1200, For 30 days [facility] Medication administered onsite chlorproMAZINE (THORAZINE) injection 100 mg [id number] 06/08/2021 09:30:00 AM EST 100 mg Intramuscular completed 100 mg, Intramuscular, Once, On 06/08/21 at 0930, For 1 dose [facility] Medication administered onsite diphenhydrAMINE (BENADRYL) injection 50 mg [id number] 06/08/2021 09:30:00 AM EST 50 mg Intramuscular completed 50 mg, Intramuscular, Once, On 06/08/21 at 0930, For 1 dose [facility] Medication administered onsite Sertraline 50 MG Oral Tablet sertraline (ZOLOFT) table t 50 mg sertraline (ZOLOFT) tablet 50 mg 06/08/2021 09:00:00 AM EST 50 mg Oral active 50 mg, Oral, Daily Standard, First dose on 06/08/21 at 0900, For 30 days [facility] Medication administered onsite aripiprazole 5 MG Oral Tablet ARIPiprazole (ABILIFY) t ablet 5 mg ARIPiprazole (ABILIFY) tablet 5 mg 06/08/2021 09:00:00 AM EST 5 mg Oral active 5 mg, Oral, Daily Standard, First dose on 06/08/21 at 0900, For 30 days [facility] Medication administered onsite Loratadine 10 MG Oral Tablet loratadine (CLARITIN) tab let 10 mg loratadine (CLARITIN) tablet 10 mg 06/08/2021 09:00:00 AM EST 10 mg Oral active 10 mg, Oral, Daily Standard, First dose on 06/08/21 at 0900, For 30 days [facility] Medication administered onsite diphenhydrAMINE (BENADRYL) 50 MG/ML injection [id number] 06/08/2021 08:50:41 AM EST completed Starti ng on 06/08/21 at 0850, For 1 dose
Created by cabinet override
[facility] Medication administered onsite chlorproMAZINE (THORAZINE) 50 MG/2ML injection [id number] 06/08/2021 08:49:38 AM EST completed Starti ng on 06/08/21 at 0849, For 1 dose
Created by cabinet override
[facility] Medication administered onsite Prazosin 1 MG Oral Capsule prazosin (MINIPRESS) capsul e 2 mg prazosin (MINIPRESS) capsule 2 mg 06/07/2021 10:00:00 PM EST 2 mg Oral active 2 mg, Oral, Nightly, First dose on 06/07/21 at 2200, For 30 days
Check vital signs before administering
[facility] Medication administered onsite montelukast 10 MG Oral Tablet montelukast (SINGULAIR) tablet 10 mg montelukast (SINGULAIR) tablet 10 mg 06/07/2021 10:00:00 PM EST 10 mg Oral active 10 mg, Oral, Nightly, First dose on 06/07/21 at 2200, For 30 days [facility] Medication administered onsite olanzapine 5 MG Oral Tablet OLANZapine (ZYPREXA) table t 5 mg OLANZapine (ZYPREXA) tablet 5 mg 06/07/2021 10:00:00 PM EST 5 mg Oral active 5 mg, Oral, Nightly, First dose on 06/07/21 at 2200, For 30 days [facility] Medication administered onsite Acetaminophen 325 MG [...] mg from all sources in 24 hours.
[facility] Medication administered onsite Hydroxyzine Hydrochloride 50 MG Oral Tablet hydrOXYzin e (ATARAX) tablet 50 mg hydrOXYzine (ATARAX) tablet 50 mg 06/07/2021 06:59:33 PM EST 50 mg Oral active 50 mg, Oral, Every 6 hours PRN, Anxiety, Starting on 06/07/21 at 1859, For 30 days [facility] Medication administered onsite Prazosin 1 MG Oral Capsule prazosin (MINIPRESS) capsul e 2 mg prazosin (MINIPRESS) capsule 2 mg 05/29/2021 10:00:00 PM EST 2 mg Oral active 2 mg, Oral, Nightly, First dose on Radha 05/29/21 at 2200, For 30 days
Check vital signs before administering
[facility] Medication administered onsite olanzapine 5 MG Oral Tablet OLANZapine (ZYPREXA) table t 5 mg OLANZapine (ZYPREXA) tablet 5 mg 05/29/2021 10:00:00 PM EST 5 mg Oral active 5 mg, Oral, Nightly, First dose on Radha 05/29/21 at 2200, For 30 days [facility] Medication administered onsite montelukast 10 MG Oral Tablet montelukast (SINGULAIR) tablet 10 mg montelukast (SINGULAIR) tablet 10 mg 05/29/2021 10:00:00 PM EST 10 mg Oral active 10 mg, Oral, Nightly, First dose on Wed05/29/21 at 2200, For 30 days [facility] Medication administered onsite olanzapine 5 MG/ML Injectable Solution OLANZapine (ZYP REXA) injection 10 mg OLANZapine (ZYPREXA) injection 10 mg 05/29/2021 02:30:00 PM EST 10 mg Intramuscular completed 10 mg, Intr amuscular, Once, On Wed05/29/21 at 1430, For 1 dose
Reconstitute 10 mg vial with 2.1 mL SWFI; resulting solution is ~5 mg/mL; Use within 1 hour following reconstitution. May be given over objection
[facility] Medication administered onsite diphenhydrAMINE (BENADRYL) injection 50 mg [id number] 05/29/2021 02:30:00 PM EST 50 mg Intramuscular completed 50 mg, Intramuscular, Once, On Wed05/29/21 at 1430, For 1 dose
May be given over objection
[facility] Medication administered onsite olanzapine 5 MG Disintegrating Oral Tabl et OLANZapine zydis (ZYPREXA) disintegrating tablet 5 mg OLANZapine zydis (ZYPREXA) disintegratin g tablet 5 mg 05/29/2021 12:22:40 PM EST 5 mg Oral active 5 mg, Oral, Every 8 hours PRN, agitation, Starting on Wed05/29/21 at 1222, For 30 days [facility] Medication administered onsite Calcium Carbonate 500 MG Chewable Tablet calcium carbonate (TUMS) chewable tablet 500 mg calcium carbonate (TUMS) chewable tablet 500 mg 2020 11:42:07 AM EST 500 mg Oral active 500 mg, Oral, Daily PRN, Indigestion, Starting on Wed05/29/21 at 1142, For 30 days [facility] Medication administered onsite Loratadine 10 MG Oral Tablet loratadine (CLARITIN) tab let 10 mg loratadine (CLARITIN) tablet 10 mg 05/29/2021 09:00:00 AM EST 10 mg Oral active 10 mg, Oral, Daily Standard, First dose on Wed05/29/21 at 0900, For 30 days [facility] Medication administered onsite Nicotine 2 MG Oral Lozenge nicotine (NICORETTE) lozeng e 2 mg nicotine (NICORETTE) lozenge 2 mg 05/29/2021 08:03:42 AM EST 2 mg Mouth/Th roat active 2 mg, Mouth/Throat, Every 2 hours PRN, Smoking cessation, Starting on Wed05/29/21 at 0803, For 30 days
Should not be chewed or swallowed; allow to dissolve slowly (~20-30 minutes)
[facility] Medication administered onsite diphenhydrAMINE (BENADRYL) injection 50 mg [id number] 05/29/2021 02:15:00 AM EST 50 mg Intramuscular completed 50 mg, Intramuscular, Once, On Wed05/29/21 at 0215, For 1 dose [facility] Medication administered onsite olanzapine 5 MG/ML Injectable Solution OLANZapine (ZYP REXA) 10 MG injection OLANZapine (ZYPREXA) 10 MG injection 05/29/2021 01:59:23 AM EST completed Starting on 05/12 at 0159, For 1 dose
Created by cabinet override
[facility] Medication administered onsite Ondansetron 4 MG Disintegrating Oral Tab let ondansetron (ZOFRAN-ODT) disintegrating tablet 4 mg ondansetron (ZOFRAN-ODT) disintegrating tablet 4 mg 05/28/2021 11:03:22 PM EST 4 mg Oral active 4 mg, Oral, Every 6 hours PRN, Nausea, Starting on Wed05/28/21 at 2303, For 30 days
Dissolve on tongue.
[facility] Medication administered onsite Hydroxyzine Hydrochloride 50 MG Oral Tablet hydrOXYzin e (ATARAX) tablet 50 mg hydrOXYzine (ATARAX) tablet 50 mg 05/28/2021 11:03:19 PM EST 50 mg Oral active 50 mg, Oral, Every 6 hours PRN, Anxiety, Sleep, Starting on Wed05/28/21 at 2303, For 30 days [facility] Medication administered onsite Magnesium Hydroxide 80 [...] creatinine > 2 notify provider before administering
[facility] Medication administered onsite Acetaminophen 325 MG [...] mg from all sources in 24 hrs.
[facility] Medication administered onsite Escitalopram 10 MG Oral Tablet Escitalopram Oxalate 10 MG Oral Tablet (LEXAPRO) Escitalopram Oxalate 10 MG Oral Tablet (LEXAPRO) 05/22/2021 12:00:00 AM EST 10 mg Oral aborted Take 10 mg by mouth edward y with [facility] aripiprazole 5 MG Oral Tablet ARIPiprazole 5 MG Oral T ablet (ABILIFY) ARIPiprazole 5 MG Oral Tablet (ABILIFY) 05/20/2021 12:00:00 AM EST 5 mg Oral aborted Take 5 mg by mouth daily [facility] 5 mg 05/20/2021 12:00:00 AM EST tablet [...] EVERY DAY FOR DEPRESSION SOLD : 05/20/2021 [facility] Sertraline 50 MG Oral Tablet sertraline (ZOLOFT) table t 50 mg sertraline (ZOLOFT) tablet 50 mg 04/07/2021 10:45:00 AM EDT 50 mg Oral active 50 mg, Oral, Daily Standard, First dose on Wed04/07/21 at 1045, For 30 days [facility] Medication administered onsite aripiprazole 5 MG Oral Tablet ARIPiprazole (ABILIFY) t ablet 10 mg ARIPiprazole (ABILIFY) tablet 10 mg 04/07/2021 10:45:00 AM EDT 10 mg Oral active 10 mg, Oral, Daily Standard, First dose on Wed04/07/21 at 1045, For 30 days [facility] Medication administered onsite Sertraline 50 MG Oral Tablet Sertraline HCl 50 MG Oral Tablet (ZOLOFT) Sertraline HCl 50 MG Oral Tablet (ZOLOFT) 04/07/2021 12:00:00 AM EDT aborted Take 50 mg for 2 day s, then increase to 100 mg on 04/10, and increase to 150 mg on 04/13. [facility] olanzapine 5 MG/ML Injectable Solution OLANZapine (ZYP REXA) injection 10 mg OLANZapine (ZYPREXA) injection 10 mg 04/06/2021 10:45:00 PM EDT 10 mg Intramuscular completed 10 mg, Intr amuscular, Once, On 04/06/21 at 2245, For 1 dose
Reconstitute 10 mg vial with 2.1 mL SWFI; resulting solution is ~5 mg/mL; Use within 1 hour following reconstitution.
[facility] Medication administered onsite Prazosin 1 MG Oral Capsule prazosin (MINIPRESS) capsul e 1 mg prazosin (MINIPRESS) capsule 1 mg 04/05/2021 10:00:00 PM EDT 1 mg Oral active 1 mg, Oral, Nightly, First dose on 04/05/21 at 2200, For 30 days
Check vital signs before administering
[facility] Medication administered onsite olanzapine 10 MG Oral Tablet OLANZapine (ZYPREXA) tabl et 10 mg OLANZapine (ZYPREXA) tablet 10 mg 04/05/2021 07:40:57 PM EDT 10 mg Oral active 10 mg, Oral, Every 2 hours PRN, Agitation, MDD 20 mg, Starting on 04/05/21 at 1940, For 30 days [facility] Medication administered onsite Ibuprofen 400 MG Oral Tablet ibuprofen (MOTRIN) tablet 400 mg ibuprofen (MOTRIN) tablet 400 mg 04/05/2021 07:34:02 PM EDT 400 mg Oral act shea 400 mg, Oral, Every 6 hours PRN, Moderate Pain (Pain Scale Score 4-6), Headaches, Starting on 04/05/21 at 1934, For 30 days
Take with food.
[facility] Medication administered onsite multivitamin tablet 1 tablet [id number] 04/05/2021 08:00:00 AM EDT 1 {tbl} Oral active 1 tablet, Oral , Daily Standard, First dose on 04/05/21 at 0800, For 30 days [facility] Medication administered onsite Nicotine 2 MG Oral Lozenge nicotine (NICORETTE) lozeng e 2 mg nicotine (NICORETTE) lozenge 2 mg 04/05/2021 06:25:36 AM EDT 2 mg Mouth/Th roat active 2 mg, Mouth/Throat, Every 2 hours PRN, Smoking cessation, Starting on 04/05/21 at 0625, For 30 days
Should not be chewed or swallowed; allow to dissolve slowly (~20-30 minutes)
[facility] Medication administered onsite Ondansetron 4 MG Disintegrating Oral Tab let ondansetron (ZOFRAN-ODT) disintegrating tablet 4 mg ondansetron (ZOFRAN-ODT) disintegrating tablet 4 mg 04/05/2021 06:25:36 AM EDT 4 mg Oral active 4 mg, Oral, Every 6 hours PRN, Nausea, Starting on 04/05/21 at 0625, For 30 days
Dissolve on tongue.
[facility] Medication administered onsite Magnesium Hydroxide 80 [...] creatinine > 2 notify provider before administering.
[facility] Medication administered onsite Acetaminophen 325 MG [...] mg from all sources in 24 hrs.
[facility] Medication administered onsite Hydroxyzine Hydrochloride 50 MG Oral Tablet hydrOXYzin e (ATARAX) tablet 50 mg hydrOXYzine (ATARAX) tablet 50 mg 04/05/2021 06:25:35 AM EDT 50 mg Oral active 50 mg, Oral, Every 6 hours PRN, Anxiety, Sleep, Starting on 04/05/21 at 0625, For 30 days [facility] Medication administered onsite Aluminum Hydroxide 40 [...] at 0625, For 30 days
MDD 4
[facility] Medication administered onsite Melatonin 5 MG Oral Tablet melatonin tablet 5 mg melatonin t ablet 5 mg 04/05/2021 06:25:23 AM EDT 5 mg Oral active 5 mg, Oral, Nightly PRN, Sleep, Starting on 04/05/21 at 0625, For 30 days [facility] Medication administered onsite aripiprazole 10 MG Oral Tablet ARIPiprazole 10 MG Oral Tablet (ABILIFY) ARIPiprazole 10 MG Oral Tablet (ABILIFY) 03/25/2021 12:00:00 AM EDT 10 mg Oral active Take 1 tablet by gabriella th daily [facility] Prazosin 2 MG Oral Capsule Prazosin HCl 2 MG Oral Caps ule (MINIPRESS) Prazosin HCl 2 MG Oral Capsule (MINIPRESS) 03/15/2021 12:00:00 AM EDT 2 mg Oral aborted Take 2 mg by mouth [facility] Escitalopram 5 MG Oral Tablet Escitalopram Oxalate 5 M G Oral Tablet (LEXAPRO) Escitalopram Oxalate 5 MG Oral Tablet (LEXAPRO) 03/15/2021 12:00:00 AM EDT 5 mg Oral aborted Take 5 mg by mouth [facility] Escitalopram 5 MG Oral Tablet escitalopram oxalate (LE XAPRO) 5 mg tablet escitalopram oxalate (LEXAPRO) 5 mg tablet 03/15/2021 12:00:00 AM EDT 5 mg oral active anxiety with depression T carmela 1 tablet (5 mg total) by mouth 1 (one) time each day with dinner. [facility] anxiety with depression Prazosin 2 MG Oral Capsule prazosin (MINIPRESS) 2 mg c apsule prazosin (MINIPRESS) 2 mg capsule 03/15/2021 12:00:00 AM EDT 2 mg oral active post traumatic stress disorder Take 1 capsule (2 mg total) by mouth 1 (one) time each day at night. [facility] post traumatic stress disorder Lurasidone Hydrochloride 80 MG Oral Tabl et Lurasidone HCl 80 MG Oral Tablet (LATUDA) Lurasidone HCl 80 MG Oral Tablet (LATUDA) 02/26/2021 12:00:00 AM EDT 80 mg Oral active Take 1 tablet by mouth d [facility] Loratadine 10 MG Oral Tablet Loratadine 10 MG Oral Tab let (CLARITIN) Loratadine 10 MG Oral Tablet (CLARITIN) 02/26/2021 12:00:00 AM EDT 10 mg Oral aborted Take 1 tablet by mouth daily [facility] topiramate 25 MG Oral Tablet Topiramate 25 MG Oral Tab let (TOPAMAX) Topiramate 25 MG Oral Tablet (TOPAMAX) 02/26/2021 12:00:00 AM EDT 75 mg Oral aborted Take 3 tablets by mouth daily [facility] Sertraline 50 MG Oral Tablet Sertraline HCl 50 MG Oral Tablet (ZOLOFT) Sertraline HCl 50 MG Oral Tablet (ZOLOFT) 02/26/2021 12:00:00 AM EDT 150 mg Oral aborted Take 3 tablets by mo [facility] topiramate 25 MG Oral Tablet Topiramate 25 MG Oral Tab let (TOPAMAX) Topiramate 25 MG Oral Tablet (TOPAMAX) 02/26/2021 12:00:00 AM EDT 75 mg Oral aborted Take 3 tablets by mouth daily [facility] Sertraline 50 MG Oral Tablet Sertraline HCl 50 MG Oral Tablet (ZOLOFT) Sertraline HCl 50 MG Oral Tablet (ZOLOFT) 02/26/2021 12:00:00 AM EDT 150 mg Oral aborted Take 3 tablets by mo ut daily [facility] Lurasidone Hydrochloride 80 MG Oral Tabl et Lurasidone HCl 80 MG Oral Tablet (LATUDA) Lurasidone HCl 80 MG Oral Tablet (LATUDA) 02/26/2021 12:00:00 AM EDT 80 mg Oral aborted Take 1 tablet by mouth d [facility] Loratadine 10 MG Oral Tablet Loratadine 10 MG Oral Tab let (CLARITIN) Loratadine 10 MG Oral Tablet (CLARITIN) 02/26/2021 12:00:00 AM EDT 10 mg Oral aborted Take 1 tablet by mouth daily [facility] Prazosin 2 MG Oral Capsule Prazosin HCl 2 MG Oral Caps ule (MINIPRESS) Prazosin HCl 2 MG Oral Capsule (MINIPRESS) 02/25/2021 12:00:00 AM EDT 2 mg Oral aborted Take 1 capsule by mouth nightly [facility] Pravastatin Sodium 20 MG Oral Tablet Pra vastatin Sodium 20 MG Oral Tablet (PRAVACHOL) Pravastatin Sodium 20 MG Oral Tablet (PRAVACHOL) 02/25 12:00:00 AM EDT 20 mg Oral active Take 1 tablet by mouth every evening [facility] montelukast 10 MG Oral Tablet Montelukast Sodium 10 MG Oral Tablet (SINGULAIR) Montelukast Sodium 10 MG Oral Tablet (SINGULAIR) 02/25/2021 12:00:00 AM EDT 10 mg Oral aborted Take 1 tablet by mouth [facility] Trazodone Hydrochloride 50 MG Oral Table t traZODone HCl 50 MG Oral Tablet (DESYREL) traZODone HCl 50 MG Oral Tablet (DESYREL) 02/25/2021 12:00:0 0 AM EDT 50 mg Oral active Take 1 tablet by mouth nightly as needed for Sleep [facility] Propranolol Hydrochloride 10 MG Oral Tab let Propranolol HCl 10 MG Oral Tablet (INDERAL) Propranolol HCl 10 MG Oral Tablet (INDERAL) 02/25/2021 12:00:00 AM EDT 10 mg Oral aborted Take 1 tablet by mouth Two Times Daily [facility] Trazodone Hydrochloride 50 MG Oral Table [...] Oral aborted Take 1 tablet by mouth [facility] Pravastatin Sodium 20 MG Oral Tablet Pra vastatin Sodium 20 MG Oral Tablet (PRAVACHOL) Pravastatin Sodium 20 MG Oral Tablet (PRAVACHOL) 02/25 12:00:00 AM EDT 20 mg Oral aborted Take 1 tablet b y mouth every evening [facility] Prazosin 2 MG Oral Capsule Prazosin HCl 2 MG Oral Caps ule (MINIPRESS) Prazosin HCl 2 MG Oral Capsule (MINIPRESS) 02/25/2021 12:00:00 AM EDT 2 mg Oral aborted Take 1 capsule by mouth nightly [facility] Propranolol Hydrochloride 10 MG Oral Tab let Propranolol HCl 10 MG Oral Tablet (INDERAL) Propranolol HCl 10 MG Oral Tablet (INDERAL) 02/25/2021 12:00:00 AM EDT 10 mg Oral aborted Take 1 tablet by mouth Two Times Daily [facility] Prazosin 1 MG Oral Capsule prazosin (MINIPRESS) capsul e 2 mg prazosin (MINIPRESS) capsule 2 mg 02/24/2021 10:00:00 PM EDT 2 mg Oral active 2 mg, Oral, Nightly, First dose (after last modification) on 02/24/21 at 2200, For 27 doses
Check vital signs before administering
[facility] Medication administered onsite chlorproMAZINE (THORAZINE) injection 50 mg [id number] 02/23/2021 09:00:00 AM EDT 50 mg Intramuscular completed 50 mg, Intramuscular, Once, On 02/23/21 at 0900, For 1 dose [facility] Medication administered onsite diphenhydrAMINE (BENADRYL) injection 50 mg [id number] 02/23/2021 09:00:00 AM EDT 50 mg Intramuscular completed 50 mg, Intramuscular, Once, On 02/23/21 at 0900, For 1 dose [facility] Medication administered onsite diphenhydrAMINE (BENADRYL) injection 50 mg [id number] 02/22/2021 05:30:00 PM EDT 50 mg Intramuscular completed 50 mg, Intramuscular, Once, On 02/22/21 at 1730, For 1 dose [facility] Medication administered onsite chlorproMAZINE (THORAZINE) injection 50 mg [id number] 02/22/2021 05:30:00 PM EDT 50 mg Intramuscular completed 50 mg, Intramuscular, Once, On 02/22/21 at 1730, For 1 dose [facility] Medication administered onsite chlorproMAZINE (THORAZINE) 50 MG/2ML injection [id number] 02/22/2021 05:23:23 PM EDT completed Starti ng on 02/22/21 at 1723, For 1 dose
Chelsey Flores: cabinet override
[facility] Medication administered onsite diphenhydrAMINE (BENADRYL) 50 MG/ML injection [id number] 02/22/2021 05:23:16 PM EDT completed Starti ng on 02/22/21 at 1723, For 1 dose
Chelsey Flores: cabinet override
[facility] Medication administered onsite aripiprazole 400 MG Injection ARIPiprazo le ER (ABILIFY MAINTENA) extended- release injectable suspension 400 mg ARIPiprazole ER (ABILIFY MAINTENA) extended-release injectable suspension 400 mg 02/22/2021 03:45:00 PM EDT 400 mg Intramuscular completed 400 mg , Intramuscular, Once, On 02/22/21 at 1545, For 1 dose [facility] Medication administered onsite Loratadine 10 MG Oral Tablet loratadine (CLARITIN) tab let 10 mg loratadine (CLARITIN) tablet 10 mg 02/22/2021 09:00:00 AM EDT 10 mg Oral active 10 mg, Oral, Daily Standard, First dose on 02/22/21 at 0900, For 30 days [facility] Medication administered onsite Lurasidone Hydrochloride 80 MG Oral Tablet lurasidone HCl (LATUDA) tablet 80 mg lurasidone HCl (LATUDA) tablet 80 mg 02/22/2021 09:00:00 AM EDT 80 mg Oral active 80 mg, Oral, Kathleen ly Standard, First dose on 02/22/21 at 0900, For 30 days
Administer with food.
[facility] Medication administered onsite Sertraline 50 MG Oral Tablet sertraline (ZOLOFT) table t 150 mg sertraline (ZOLOFT) tablet 150 mg 02/22/2021 09:00:00 AM EDT 150 mg Oral active 150 mg, Oral, Daily Standard, First dose on 02/22/21 at 0900, For 30 days [facility] Medication administered onsite topiramate 25 MG Oral Tablet topiramate (TOPAMAX) tabl et 75 mg topiramate (TOPAMAX) tablet 75 mg 02/22/2021 09:00:00 AM EDT 75 mg Oral active 75 mg, Oral, Daily Standard, First dose on Wed02/22/21 at 0900, For 30 days [facility] Medication administered onsite montelukast 10 MG Oral Tablet montelukast (SINGULAIR) tablet 10 mg montelukast (SINGULAIR) tablet 10 mg 02/21/2021 10:00:00 PM EDT 10 mg Oral active 10 mg, Oral, Nightly, First dose on Wed02/21/21 at 2200, For 30 days [facility] Medication administered onsite Pravastatin Sodium 20 MG Oral Tablet pravastatin (PRAV ACHOL) tablet 20 mg pravastatin (PRAVACHOL) tablet 20 mg 02/21/2021 09:00:00 PM EDT 20 mg Oral active 20 mg, Oral, Scarlett ry evening, First dose on Wed02/21/21 at 2100, For 30 days [facility] Medication administered onsite Propranolol Hydrochloride 10 MG Oral Tablet propranolo l (INDERAL) tablet 10 mg propranolol (INDERAL) tablet 10 mg 02/21/2021 09:00:00 PM EDT 10 mg Oral active 10 mg, Oral, 2 Times Daily, First dose on Wed02/21/21 at 2100, For 30 days
Check vital signs before administering
[facility] Medication administered onsite Trazodone Hydrochloride 50 MG Oral Tablet trazodone (D ESYREL) tablet 50 mg trazodone (DESYREL) tablet 50 mg 02/21/2021 08:21:55 PM EDT 50 mg Oral active 50 mg, Oral, Nightly PRN, Sleep, Starting on Wed02/21/21 at 2020, For 30 days [facility] Medication administered onsite Hydroxyzine Hydrochloride 50 MG Oral Tablet hydrOXYzin e (ATARAX) tablet 50 mg hydrOXYzine (ATARAX) tablet 50 mg 02/21/2021 08:18:25 PM EDT 50 mg Oral active 50 mg, Oral, Every 6 hours PRN, Anxiety, Sleep, Starting on Wed02/21/21 at 2018, For 30 days [facility] Medication administered onsite Magnesium Hydroxide 80 [...] creatinine > 2 notify provider before administering.
[facility] Medication administered onsite Nicotine 2 MG Oral Lozenge nicotine (NICORETTE) lozeng e 2 mg nicotine (NICORETTE) lozenge 2 mg 02/21/2021 08:18:16 PM EDT 2 mg Mouth/Th roat active 2 mg, Mouth/Throat, Every 2 hours PRN, Smoking cessation, Starting on Wed02/21/21 at 2018, For 30 days
Should not be chewed or swallowed; allow to dissolve slowly (~20-30 minutes)
[facility] Medication administered onsite Acetaminophen 325 MG [...] mg from all sources in 24 hrs.
[facility] Medication administered onsite Lurasidone Hydrochloride 40 MG Oral Tablet [Latuda] La tuda 40 MG Oral Tablet Latuda 40 MG Oral Tablet 02/13/2021 12:00:00 AM EDT aborted TAKE TWO TABLETS BY MOUTH IN THE EVENING AT 8PM FOR [facility] Prazosin 1 MG Oral Capsule Prazosin HCl 1 MG Oral Caps ule (MINIPRESS) Prazosin HCl 1 MG Oral Capsule (MINIPRESS) 02/13/2021 12:00:00 AM EDT aborted TAKE ONE CAPSULE BY MOUTH AT BEDTIME FOR [facility] Sertraline 100 MG Oral Tablet Sertraline HCl 100 MG Or al Tablet (ZOLOFT) Sertraline HCl 100 MG Oral Tablet (ZOLOFT) 01/02/2021 12:00:00 AM EDT aborted TAKE ONE TABLET BY MOUTH EVERY D AY FOR [facility] Ibuprofen 400 MG Oral Tablet Ibuprofen 400 MG Oral Tab let (MOTRIN) Ibuprofen 400 MG Oral Tablet (MOTRIN) 01/02/2021 12:00:00 AM EDT aborted TAKE ONE TABLET BY MOUTH EVERY 6 HOURS NEEDED FOR HEADACHE [facility] Ciprofloxacin 3 MG/ML Ophthalmic Solutio n Ciprofloxacin HCl 0.3 % Ophthalmic Solution (CILOXAN) Ciprofloxacin HCl 0.3 % Ophthalmic Solution (CILOXAN) 01/02/2021 12:00:00 AM EDT aborted INSTILL FOUR DROPS INTO BOTH EARS TWO TIMES A DAY FOR 7 DAYS [facility] carbamide peroxide 65 MG/ML Otic Solution Ear Drops 6. 5 % Otic Solution Ear Drops 6.5 % Otic Solution 01/02/2021 12:00:00 AM EDT aborted INSTILL 5 10 DROPS INTO AFFECTED EAR TWO TIMES A DAY FOR EAR WAX [facility] Naproxen 250 MG Oral Tablet Naproxen 250 MG Oral Table t (NAPROSYN) Naproxen 250 MG Oral Tablet (NAPROSYN) 08/22/2020 12:00:00 AM EST [facility] topiramate 100 MG Oral Tablet Topiramate 100 MG Oral T ablet (TOPAMAX) Topiramate 100 MG Oral Tablet (TOPAMAX) 08/20/2020 12:00:00 AM EST [facility] Lorazepam 1 MG Oral Tablet LORazepam 1 MG Oral Tablet (ATIVAN) LORazepam 1 MG Oral Tablet (ATIVAN) 08/20/2020 12:00:00 AM EST ab [facility] Chlorpromazine hydrochloride 25 MG Oral Tablet chlorproMAZINE HCl 25 MG Oral Tablet (THORAZINE) chlorproMAZINE HCl 25 MG Oral Tablet (THORAZINE) 08/20 12:00:00 AM EST [facility] Chlorpromazine hydrochloride 100 MG Oral Tablet chlorproMAZINE HCl 100 MG Oral Tablet (THORAZINE) chlorproMAZINE HCl 100 MG Oral Tablet (THORAZINE) 03/2021 12:00:00 AM EST [facility] 400 mg 06/18/2020 12:00:00 AM EST suspension,extended [...] APPLICATION INTO THE MUSCLE ONCE A MONTH [facility] 30 mg 06/08/2020 12:00:00 AM EST [...] active Take 1 capsule by mouth daily [facility] topiramate 50 MG Oral Tablet Topiramate 50 [...] Oral aborted Take 1 mg by mouth [facility] Prazosin 1 MG Oral Capsule prazosin (MINIPRESS) 1 mg c apsule prazosin (MINIPRESS) 1 mg capsule 1 mg oral aborted Take 1 mg by mouth 1 (one) time each day at night. [facility] Nicotine 2 MG Chewing Gum Nicotine Polacrilex 2 MG Gabriella th/Throat Gum (NICORETTE) Nicotine Polacrilex 2 MG Mouth/Throat Gum (NICORETTE) 2 mg Or al aborted Take 2 mg by mouth every 2 (two) hours a s needed for Smoking cessation [facility] olanzapine 5 MG Oral Tablet OLANZapine 5 MG Oral Table t (ZYPREXA) OLANZapine 5 MG Oral Tablet (ZYPREXA) 5 mg Oral aborted Take 5 mg by mouth nightly [facility] Loratadine 10 MG Oral Capsule Loratadine 10 MG Oral Capsule Oral aborted Take by mouth [facility] aripiprazole 10 MG Oral Tablet ARIPiprazole 10 MG Oral Tablet (ABILIFY) ARIPiprazole 10 MG Oral Tablet (ABILIFY) 10 mg Oral aborted Take 10 mg by mouth daily [facility] Pravastatin Sodium 20 MG Oral Tablet Pra vastatin Sodium 20 MG Oral Tablet (PRAVACHOL) Pravastatin Sodium 20 MG Oral Tablet (PRAVACHOL) 20 mg Oral aborted Take 20 mg by mouth nightly [facility] Lurasidone Hydrochloride 40 MG Oral Tabl et Lurasidone HCl 40 MG Oral Tablet (LATUDA) Lurasidone HCl 40 MG Oral Tablet (LATUDA) 40 mg Oral aborted Take 40 mg by mouth [facility] Ondansetron 4 MG Oral Tablet ondansetron (ZOFRAN) 4 mg tablet ondansetron (ZOFRAN) 4 mg tablet 4 oral aborted acu te gastroenteritis-related vomiting in pediatrics Take by mouth every 6 (six) hours if needed for nausea or vomiting. [facility] acute gastroenteritis-related vomiting i n pediatrics Citalopram 20 MG Oral Tablet citalopram (CeleXA) 20 mg tablet citalopram (CeleXA) 20 mg tablet 20 mg oral aborted po [address] traumatic stress disorderdepression associated with bipolar disorderanxiety with depression Take 20 mg by mouth 1 (one) time each day. [facility] post traumatic stress disorder depression associated with bipolar disor víctor anxiety with depression Sertraline 100 MG Oral Tablet Sertraline HCl 100 MG Or al Tablet (ZOLOFT) Sertraline HCl 100 MG Oral Tablet (ZOLOFT) 150 mg Oral aborted Take 150 mg by mouth daily [facility] Propranolol Hydrochloride 10 MG Oral Tablet propranolo L (INDERAL) 10 mg tablet propranoloL (INDERAL) 10 mg tablet 10 mg oral abo rted Take 10 mg by mouth 2 (two) times a day. [facility] Loratadine 10 MG Oral Tablet Loratadine 10 MG Oral Tab let (CLARITIN) Loratadine 10 MG Oral Tablet (CLARITIN) 10 mg Oral aborted Take 10 mg by mouth daily [facility] Sertraline 50 MG Oral Tablet sertraline (ZOLOFT) 50 mg tablet sertraline (ZOLOFT) 50 mg tablet 50 mg oral aborted Take 50 mg by mouth 1 (one) time each day. [facility] Insurance Providers Payer name Policy type / Coverage type Policy ID Covered alliance party ID Covered alliance party's relationship to hamm Policy Hamm Plan Information [employer]/307 [id number] FA2 [id number] [place] 302/307 [id number] FA2 [id number] [place] 302/307 [id number] FA2 [id number] [place] 302/307 [id number] [id number] [place] 302/307 [id number] FA2 [id number] EXCELLUS H [id number] Child [id number] BLUE CROSS [id number] BLUE CROSS [id number] F [id number] BLUE CROSS [id number] EXCELLUS H [id number] Child [id number] Medicaid P [id number] S [id number] MEDICAID M [id number] Self [id number] BLUE CROSS [id number] CH [id number] MEDICAID [facility] [id number] SP [id number] BLUE CROSS [id number] CH [id number] SELF PAY BLUE CROSS [id number] F [id number] [place] [id number] Self [id number] [place] [id number] Self [id number] MEDICAID M [id number] Self [id number] SELF PAY MEDICAID [facility] [id number] SP [id number] NESHA [id number] Self [id number] NESHA [id number] NESHA MEDICAID [id number] [place]y 7 [id number] NESHA I [id number] Self [id number] NESHA [id number] SP [id number] 200 MEDICAID [facility] [id number] SP [id number] NESHA [id number] SP [id number] SELF PAY MEDICAID [facility] [id number] SP [id number] SELF PAY [employer] [id number] Family Dependent [id number] [place] 306/806 [id number] [employer] [place] 306/806 [id number] MO2 [id number] [employer] [id number] Family Dependent [place] 306/806 [id number] MO2 [id number] BLUE CROSS BLUE SHIELD-O/P [id number] MEDICAID-O/P [id number] [place] 306/806 [id number] FA2 [id number] [facility] [id number] FA2 [id number] BCBS [facility] [id number] FA2 [id number] [facility] [id number] [id number] MEDICAID-O/P [id number] MEDICAID-O/P [id number] BLUE CROSS BLUE SHIELD-O/P [id number] NESHA [id number] SP [id number] 200 [id number] NESHA CARE [facility] [id number] S [id number] NESHA MEDICAID [id number] S [id number] NESHA CARE [place] [id number] S [id number] MEDICAID PROF FEES [id number] S [id number] MEDICAID [id number] S [id number] MEDICAID PROF FEES [id number] S [id number] MEDICAID [id number] S [id number] [place] [id number] SP [id number] U NESHA [id number] SP [id number] EMEDNY [id number] SP [id number] MEDICAID [id number] SP [id number] MEDICAID M [id number] S [id number] [employer] BCBS P [id number] P [id number] EXCELLUS BCBS B [id number] S [id number] [facility] [id number] self [id number] Excell[employer] 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 will have a one on one conversation with thepatient to verbally identify any of their perceived and/or actual barriers topost discharge care., While at [facility], the RN or Chiropractic Teacher will have a one onone conversation with [...] atCPEP.: While at [facility], the RN or equipment worker will have a one on oneconversation with the patient to verbally identify their triggers for anxiety.,While at [facility], the RN or Chiropractic Teacher will have a one on one conversation withthe patient to educate on coping strategies (such as self-talk, journaling,guided imagery, deep breathing, or counting to ten).Progress Towards Discharge Treatment planning goals to be addressed and resolved with the social secretary,see notes.MDMNumber of Diagnosis or Management Options:[] Minimal [...] No changes [] No side effectsBilling Code: [id number] signed byESTHER Villegasurse Wzezhauksass82/30/21 1033 Name Value Range Interpretation Code Description Data Stephanie rce(s) Supporting Document(s) ID Date Data Source [id number] 06/10/2021 04:46:28 AM EST [facility] Name Value Range Interpretation Code Description Data Stephanie rce(s) Supporting Document(s) URINE WBC (0-5) [facility] URINE RBC (0-2) [facility] EPITHELIAL CELLS 1+ [HPF] [facility] BACTERIA 2+ [HPF] [facility] MUCUS 1+ [HPF] [facility] AMORPHOUS 1+ [HPF] [facility] ID Date Data Source [id number] 06/10/2021 04:08:09 AM EST [facility] Name Value Range Interpretation Code Description Data Stephanie rce(s) Supporting Document(s) COLOR [facility] PERFORMED AT [address] [facility] [address] APPEARANCE [facility] SPEC GRAV URINE 1.036 (1.003-1.030) H Lab [facility] PH URINE 5.5 (5.0-7.5) Lab [facility] LEUK ESTERASE (NEG) Lab [facility] CRITERIA FOR CULTURE NOT MET.CULTURE CAN BE ADDED WITHIN 36 HOURS OFCOLLECTION. NITRITE URINE (NEG) Lab [facility] PROTEIN URINE (NEG) A [facility] GLUCOSE URINE (NEG) Lab [facility] KETONE URINE (NEG) Lab [facility] UROBILINOGEN 0.2 mg/dL (0-1.0) [facility] BILIRUBIN URINE 1+ (NEG) A [facility] INTERFERING SUBSTANCES MAY CAUSE FALSEPO SITIVE BILIRUBIN, WHICH HAS BEENSHOWN TO BE CLINICALLY INSIGNIFICANT.CORRELATE WITH OTHER TESTING. BLOOD/HGB URINE 3+ (NEG) A [facility] ID Date Data Source [id number] 06/10/2021 12:11:00 AM EST [facility] Name Value Range Interpretation Code Description Data Stephanie rce(s) Supporting Document(s) SARS coronavirus 2 RNA [Presence] in Res piratory specimen by CORDELL with probe detection NOT DETECTED [facility] This lab was reported by [facility]. ID Date Data Source [id number] 06/10/2021 02:22:02 AM EST [facility] Name Value Range Interpretation Code Description Data Stephanie rce(s) Supporting Document(s) SPECIMEN DESCRIPTION [facility] INFLUENZA A (NEG) Lab [facility] INFLUENZA B (NEG) Lab [facility] RSV (NEG) Lab [facility] COMMENT Lab [facility] THE [place] FDA HAS MADE THIS TEST AVAILABL EUNDER AN EMERGENCY USE AUTHORIZATION(EUA) FOR THE DETECTION AND/OR DIAGNOSISOF THE VIRUS THAT CAUSES COVID-19.PERFORMED AT [address] [facility] [address] COVID19 RESULT (NDET) Lab [facility] THIS ASSAY AMPLIFIES AND DETECTSTHE TARG ET RNA USING REAL-TIME PCR.TESTING PERFORMED ON [employer] GENEXPERTNEGATIVE 2019_NCOV RT-PCR RESULTS DONOT PRECLUDE 2019_NCOV INFECTION ANDSHOULD NOT BE USED THE SOLE BASISFOR PATIENT MANAGEMENT DECISIONS. FIRST TEST [facility] SYMPTOMATIC [facility] DATE OF SYMPT ONSET [facility] HOSPITALIZED [facility] [place] [facility] CONGREGATE CARE SET [facility] ID Date Data Source [id number] 06/10/2021 01:57:28 AM EST [facility] Name Value Range Interpretation Code Description Data Stephanie rce(s) Supporting Document(s) SALICYLATE <2.8 mg/dL [facility] GREATER THAN 30.0 MG/DL IS TOXIC ID Date Data Source [id number] 06/10/2021 01:57:28 AM EST [facility] Name Value Range Interpretation Code Description Data Stephanie rce(s) Supporting Document(s) TOTAL PROTEIN 8.1 g/dL (6.4-8.2) [facility] ALBUMIN 3.6 g/dL (3.5-4.6) [facility] GLOBULIN 4.5 g/dL (2.7-4.3) H [facility] ALB/GLOB RATIO 0.8 RATIO [facility] BILIRUBIN,TOTAL 0.3 mg/dL (0.0-1.0) [facility] PLEASE NOTE:Total bilirubin results may be falselyelevated in patients taking Eltrombopag. BILIRUBIN,CONJUGATED <0.1 mg/dL (0.0-0.3) [facility] BILIRUBIN,UNCONJ. (0.0-0.7) [facility] ALKALINE PHOSPHATASE 105 U/L (45-117) [facility] AST (SGOT) 45 U/L (11-39) H [facility] ALT (SGPT) 62 U/L (12-78) [facility] ID Date Data Source [id number] 06/10/2021 01:57:28 AM EST [facility] Name Value Range Interpretation Code Description Data Stephanie rce(s) Supporting Document(s) LIPASE 56 U/L (65-230) L [facility] ID Date Data Source [id number] 06/10/2021 01:57:28 AM EST [facility] Name Value Range Interpretation Code Description Data Stephanie rce(s) Supporting Document(s) ETHANOL <3 mg/dL (0-3) [facility] ID Date Data Source [id number] 06/10/2021 01:57:28 AM EST [facility] Name Value Range Interpretation Code Description Data Stephanie rce(s) Supporting Document(s) SODIUM 139 mmol/L (136-145) [facility] POTASSIUM 3.7 mmol/L (3.6-5.2) [facility] CHLORIDE 107 mmol/L (100-108) [facility] CO2 25 mmol/L (22-31) [facility] ANION GAP 7 mmol/L (7-16) [facility] UREA NITROGEN 17 mg/dL (7-24) [facility] CREATININE 0.46 mg/dL (0.60-1.00) L [facility] BUN/CREAT RATIO 37.0 RATIO (10.0-20.0) H [facility] GLUCOSE 92 mg/dL (70-99) [facility] CALCIUM 9.0 mg/dL (8.4-10.2) [facility] GFR >60 ml/min/1.73m2 (>59) [facility] GFR ( AMER) >60 ml/min/1.73m2 (>59) [facility] GFR INTERPRETATION [facility] --NORMAL KIDNEY FUNCTION OR MILD DISEASE - GFR >OR= 60CHRONIC KIDNEY DISEASE - GFR 15 - 59RENAL FAILURE - GFR <15 Est. GFR calculation based on the MDRDstudy equation, which assumes a steadystate for creatinine. Est. GFR should notbe used for medication dosing. ID Date Data Source [id number] 06/10/2021 01:57:28 AM EST [facility] Name Value Range Interpretation Code Description Data Stephanie rce(s) Supporting Document(s) TROPONIN I <0.05 ng/mL (<0.05) [facility] [place] Less than 0.05: Myocardial injury unlike lyGreater than or equal to 0.05: Highly suggestive of myocardial injuryCorrelation with rise and/or fall ofserial troponins, clinical symptomsand ECG changes is necessary. ID Date Data Source [id number] 06/10/2021 01:57:28 AM EST [facility] Name Value Range Interpretation Code Description Data Stephanie rce(s) Supporting Document(s) ACETAMINOPHEN <2.5 ug/mL (10.0-30.0) L [facility] ID Date Data Source [id number] 06/10/2021 01:54:28 AM EST [facility] Name Value Range Interpretation Code Description Data Stephanie rce(s) Supporting Document(s) HCG, QUAL. SERUM (NEG) [facility] ID Date Data Source [id number] 06/10/2021 01:35:52 AM EST [facility] Name Value Range Interpretation Code Description Data Stephanie rce(s) Supporting Document(s) WBC 8.6 10*3/uL (4.1-11.0) [facility] [place] RBC 4.49 10*6/uL (4.00-5.40) [facility] HGB 13.1 g/dL (12.0-16.0) [facility] HCT 39.3 % (36.0-47.0) [facility] MCV 87.7 fL (80.0-95.0) [facility] MCH 29.2 pg (27.0-32.0) [facility] MCHC 33.3 g/dL (32.0-36.0) [facility] RDW 13.7 % (10.5-14.5) [facility] PLT 249 10*3/uL (150-450) [facility] MPV 8.5 fL (7.1-10.7) [facility] NEUT % 65.2 % (35.0-75.0) [facility] LYMPH % 25.3 % (16.0-52.0) [facility] MONO % 8.5 % (0.0-8.0) H [facility] EOS % 0.8 % (0.0-5.0) [facility] BASO % 0.2 % (0.0-4.0) [facility] NEUT # 5.6 10*3/uL (1.8-7.7) [facility] LYMPH # 2.2 10*3/uL (1.2-4.8) [facility] MONO # 0.7 10*3/uL (0.0-0.8) [facility] Eosinophils [#/volume] in Blood by Automated count 0.1 10*3/uL (0.0-0 .5) [facility] BASO # 0.0 10*3/uL (0.0-0.2) [facility] ID Date Data Source [id number] 06/10/2021 04:28:56 AM EST [facility] Name Value Range Interpretation Code Description Data Stephanie rce(s) Supporting Document(s) AMPHETAMINES,URINE (NEG) [facility] BARBITURATES,URINE (NEG) [facility] BENZODIAZEPINE,URINE (NEG) [facility] CANNABINOIDS,URINE (NEG) A [facility] COCAINE,URINE (NEG) [facility] OPIATES,URINE (NEG) [facility] NOTE: Oxycodone is not sufficientlydetec hellen by this screening assay. A moresensitive assay is available upon request. PHENCYCLIDINE,URINE (NEG) [facility] PLEASE NOTE: [facility] [place] ARE REPORTED POSITIVE WHEN [...] FORMONITORING MEDICATION COMPLIANCE. ID Date Data Source [id number] 06/08/2021 11:43:03 AM EST [facility] Name Value Range Interpretation Code Description Data Stephanie rce(s) Supporting Document(s) History and Physical [facility] YAIIZg7hHbRNQeAr76/ORVvtZDAbk0DsZAfnQJl9WYjkKJOwC4QxGKT4fO9lSYX7TOyYXxNwHcRoXTT0 lbm [file] ICAgICAgICAgICAgICAgICAgICAgICAgICAgICAgIC AgICAgICAgICAgICAgICAgICAgICAgICAgICAgICAgICAgICAgICAgICAgDQogICAgICAgICAgICAgIC AgICAgICAgICAgICAgICAgICAgICAgICAgICAgICAgICAgICAgICAgICAgICAgICAgICAgICAgICAgIC AgICAgICAgICAgICAgICAgICAgICAgICAgDQogICAg ICAgICAgICAgICAgICAgICAgICAgICAgICAgICAgICAgICAgICAgICAgICAgICAgICAgICAgICAgICAg ICAgICAgICAgICAgICAgICAgICAgICAgICAgICAgICAgICAgDQogICAgICAgICAgICAgICAgICAgICAg ICAgICAgICAgICAgICAgICAgICAgICAgICAgICAgIC AgICAgICAgICAgICAgICAgICAgICAgICAgICAgICAgICAgICAgICAgICAgICAgDQogICAgICAgICAgIC AgICAgICAgICAgICAgICAgICAgICAgICAgICAgICAgICAgICAgICAgICAgICAgICAgICAgICAgICAgIC AgICAgICAgICAgICAgICAgICAgICAgICAgICAgDQog ICAgICAgICAgICAgICAgICAgICAgICAgICAgICAgICAgICAgICAgICAgICAgICAgICAgICAgICAgICAg ICAgICAgICAgICAgICAgICAgICAgICAgICAgICAgICAgICAgICAgDQogICAgICAgICAgICAgICAgICAg ICAgICAgICAgICAgICAgICAgICAgICAgICAgICAgIC AgICAgICAgICAgICAgICAgICAgICAgICAgICAgICAgICAgICAgICAgICAgICAgICAgDQogICAgICAgIC AgICAgICAgICAgICAgICAgICAgICAgICAgICAgICAgICAgICAgICAgICAgICAgICAgICAgICAgICAgIC AgICAgICAgICAgICAgICAgICAgICAgICAgICAgICAg DQogICAgICAgICAgICAgICAgICAgICAgICAgICAgICAgICAgICAgICAgICAgICAgICAgICAgICAgICAg ICAgICAgICAgICAgICAgICAgICAgICAgICAgICAgICAgICAgICAgICAgDQogICAgICAgICAgICAgICAg ICAgICAgICAgICAgICAgICAgICAgICAgICAgICAgIC QvLIFiQSFyXZNgGUNaNHLrWBKjKOEoUTLpWMBaVHPyWUImHCOnPHQdPVCuOCVcVXVcHVGcKGh9E7kbUF AlJTAsLE0sKJa4Rq0+PRxGQvIwWDV9nyZnqZ2ZNW7sj8KsATdiFJBkg9WfRCi7BM0SEKFlGBfyDV3OJA dapi4VFDQnCXVwtYEAa9dpJxNyMCN5SDVtZgawMN6Q XVPsS0trxgFjQCZcFDAAMSafFDCFYQpyICHTXQXyBDZqGhWnTZawGF3Iz8IjxNC3CDs+Yd1LVF7pv5Nq IJecNtTqDW3tzd0YNTeTUbQbD6HbbkL1TSL7OIVbTf8ZGXQhOVUrcISpYFRtKOVNHhEnB5XgkT88UUFW Cj4+HYncwgGrUtjUFbN1OKTlz6GcWRd0YG1MOJCaHT i0zSOvCECONTO2GL9oO67dFEIlXMU0zLedSJ6RXNH3ZDQpUmN2QbEhFjEnTGC4YxGaUU2dWOaeNS4QQQ S3WWfsUWFhFZGuP2yHEwHiSINgNdWfpOfzJT6PVvWjR7SlabWpcRBtTrLfESTWSo8+DQplbmRvYmoNCj T6JIRls8ZaQBc6WE8KWOHvDBiuAZ4JYMAiyK9tJFkm VH2WLjIuILYsRUQTKdKeT26gjKDnWAo7B4MiTeKjNXXrFqlnWMBrLVgyJlWkXXRaWkYpLYklRO0+ID4+ PKugVU7ZLAgrejHaKIGsKp3OPPJjPRYdZJ5hBIIbEHEdR3D6gJwyQTFAKyYnG6xivuweXZ3qWOBoM250 pUzpmjGkUVJ4OVVjEz3RNTEdNVF4LWZpgFAsKvKiAV ZRTGslLH2DrZJsJGU3uV2fTClcOWIzHNHsY7nMPmVshIobBM51eEidbpParAWoVMg+De7NAN5ij5AvZC h1uhZcDCvnVDWfITdvCIMkVVZdGMBpKGZ1OLK6XRVULmCaDAGfMCRfVWhiKBGiEBNxvi3MWUScYFWbBu P6SIKbKXRuYRXfJEkeANIrNXQ2VRZlSJIkRLAqAG8M StKlSZYjAIItDRsxKODdAHEswc8FTRBqOTWfFaprWDCeRJTnBWOmZUefXUFhQNG9STYpRZOiKCEqOG6C ZvElLFKhDIhsFJnnVQKuGBKdwg5ZYHXsAURlIeY2QGKmYZBpDZHsNSdlBQDeRMOwYNl3HMNgVVDdQR8C OqUjJOVjBCIjWbdcVCJdQAGksc5DNNBkUJWqQxh7TI LcCGJgDEOpHCwfGUPlZQN0QNirMGMsZQDkAX5HSySoEXVyPMSzUFEnHZHzFFImqb0BECQxVUYeMXE7CD KpEPVpGAJlUAowGKYySJA4GZCiUGSkGFMpLI1MMkLcCMOxWJUzMDCtZVRaSJTkel2PJUCgWUHlXrV3Mx YsSTMpXGOxHYzjMTCnTIN6EolbLXJmTUIcAC0FWbCn QCJrWTs5BGEyYHDrEJCghz6YDLPqYNUcKdycWiIfGKWrPUVdFHtvRWUtXLF4HXKoMKQtSXLtUC0HOnLr TTNjGWhlPaeyIDKuPRPaqa2ALYVoEPBfEHR5NMDsXGGxKYOkCIhpGMFaDPH1UYemODYvYNIsOJ3PNgLn WBIgCaR9MFAwSPXrQVIydt3RFCQtFHUtGCT8UjNoYW CyZGAsZQnsFASgKTQyKMV2JBOfKOUrOO8XHkUyTBIxXcH3LIKkYRYdJNWnll1PJENyAUKkQyJnAWQuCC RpFWShDAtdHKIkOCU9UeOpWAMpLWGqTF1RViIfMYTxUdJ5IaacNOEeLROclf8HUMTiFBXqTiQaZHQjTO RyUKPyKRphNTYgJZG1YMDyITIwEVQkXU9YRhMnTSGn SniyICJxXVVnYYFxlk7CNZVsALGzNdGdOPEhCKGjMFXgCNahSKXcWQE0WxqrSLVmLCMtYN7VWxXeZBWf ZlbbFUNdIXNlWJQvjz0HYYWhVNXoVETsOATcTNJuVJZvTJlaPUMmNTL1TeP7GGCzBDSkGB5KWtTsPVpu UITHJcp1LItaA4y6XUB0DI9XO9Duc9CyTbqfANIXIO uvKO0vkkQfVRCqIp3CR7cQQauvFDoeLwVdRFQvIVGsYqFoHOc1RrD4OVD1INWbTXBdIt6tCANkI3MjWO EkGIG7LpG1HPHxRPGyMdn2PpsvRlL2QqW5XjQoOX2HRe1WVuU4OQM6eLMgVi6XYvz3QDDQOuSlGG6HJX o= ID Date Data Source [id number] 06/08/2021 10:58:58 AM [facility] Name Value Range Interpretation Code Description Data Stephanie e(s) Supporting Document(s) History and Physical [facility] KPXKLn5aTzKFBwQb49/SJUwiOBWdm8CyOOgcCWq2BFkfIWUvE0MgGAY3pD9aUOV5QXrKRdVgWzNnMMC0 lbm OsQcaOLnFbKPGmLbqKPcGqSNhgFuoizFOaSJ8WzZN2VPIhG23vQXLyCBFiN4IlRNGfHWL+Lx1PFXOtnI RrGY1ZVhxU2B5fjjq4Bs4+dH1MNtqZPhCuZ2XddhASdm3YMoURvs7rjxl5ODk4cQrK43cszF8zt1ENE4 rbzwbcNkwe09GhgRCu927vd+VECePbk16YD2KvwX9S /hk7GmLFGE/FX/1n2t31IpUvt3MytNRfjL8uWtKwfly6bRynidsTUlP4pOMXEx7QGWWUFuIP9zl2eQmL kTtTnG3bpsWcfyUwQOGxH5W8cYTBbw1zyV5HkjzVMFHURpA9K0PLmPGuWmJbgdeLutVOWsxGeN/l4ZTK TRs/CDRosNRu6d9g+vCdhwYQi2TASHHZNfZDV/DDNx Z70xi280gi1fo2zwRA5ux9GI9TDcvaKCWbWmAW9eSo2wknJKhHqct/V7XPxG3GjT3xgXOePfx5wXR1BF kElLxo1ELvwufndOs6/DpMkaW0zy72x0Br+4dUh4Hn7kWh3qvLN+a8o77R1f+q26J2tNYHFOpfPBtps2 YwVzHrB0vDgUPxSzmMTroazHv8DLRRofPku8D/E6nj cgpXE/t1zW6DmhXzO7XF11D3ngwQcdd2yWJ1Oy5WXr9ziOckxlrSa/Wdff/VbIVKrlMATcjyzyEaw7m0 8xzpX0n6FTCUYagVvIhgeYKf0nm3Ebqi8Y1LLWAy8rw5LYwIpFo84NgcrNx/BVcUvwSyGKOcT50xzUrb Yp2/E1PuWPjhnQSyab5xCKhGaKUaiTpsb+aSlOvnxv Qhi29gansKdHTOwohacS/0yUpS83lgxhkrg7wJIRlOdrpqpnIKPEZGmn51BjD5u0K0BbCJtp0tKaNpzn BNkKZMUG7iGgJFwnDBmSMiGp4GRd/f0N+JJRfsIy4G2RWeDl/[place]+f5Ljf9qSczwwYeLmNLJ2He19cU [file] ICAgICAgICAgICAgICAgICAgICAgICAgICAgICAgICAgICAgICAgICAgICAgICAgICAgICAgICAgICAg ICAgICAgICAgICAgICAgICAgICAgICAgICAgICAgIC NyFTTdLF5EKNCxLXGzBBRkOEBiOEWhOUCoGUScLPHhDTGiRBYaCDHlJJIfZGTkFYMyTQVjOGPlZWNkIT CkPEDsGPUbROVhHFEdNHRhYAUaOSEqYOVmEKHmFCUbIYGlMWYsPMUfCASwENCfKC7PNZLyUUAlUAAxCN AgICAgICAgICAgICAgICAgICAgICAgICAgICAgICAg BFZiMIQpDQKkPOSxIIKlCJMqCYNsNCTrYZZxZJXsARLxWORdSOJeMPAxMAVrAGRzUZPiFLCeTDYvMH3H ICAgICAgICAgICAgICAgICAgICAgICAgICAgICAgICAgICAgICAgICAgICAgICAgICAgICAgICAgICAg ICAgICAgICAgICAgICAgICAgICAgICAgICAgICAgIC NaJCRqEDSuDF5UJDWkRNNgTFLjSETlDLQsICPbZBOgNJZzJUMkYFFbLXQcMRGgZQCaCASiLWFvOLKyKK JzJLEyPWDnKMFsVNBgOOMdXKHmIOLdCWDqNEOkECHiDRPhSFOmMYUqNUQgCGFpOIOnVY4WSZBwAAMlNJ AgICAgICAgICAgICAgICAgICAgICAgICAgICAgICAg ICAgICAgICAgICAgICAgICAgICAgICAgICAgICAgICAgICAgICAgICAgICAgICAgICAgICAgICAgICAg JR1LDLMyDLSiRLKbOUFqTCGxJGRrLLXfCXIhRBOyJHCpPUNmMAKqZZLqYXZeDPNoKIQaLJNxSWMbPZBs ICAgICAgICAgICAgICAgICAgICAgICAgICAgICAgIC GnYZUlQFIsUFEfCF1VAKQdOWGxHRRaSHPxLAFaCCOfVJCrKANcXKMvVZErCRJeTIPlWCTjMHTgRZZoTT OvWGKiKXQzOEOqHRWuUTIpXOMaGCAcVIPxCPQhMETdFALeMOIhCPLzHRIoTXVfSMFvJZYvMQ6APNEqQL AgICAgICAgICAgICAgICAgICAgICAgICAgICAgICAg ICAgICAgICAgICAgICAgICAgICAgICAgICAgICAgICAgICAgICAgICAgICAgICAgICAgICAgICAgICAg LZTjZI2IDCNuINYbEGFeXTInPGSbCWYmNFChMGJsLMRxOVEgOQSvQUKfMKFdMBYsVYHlIHJvWRZoZGGa ICAgICAgICAgICAgICAgICAgICAgICAgICAgICAgIC LyIHUjPXYdNMNrWQKxOO0ZNE61lCGsg6U4KECsMH6cnll/Ns6VFZgcaiTdbHQdRA0UVaXtFB7hsp6RSq NjEI6ziz2FDNoEKrVpO1X3wXEjIFTdYCVRJoEmT92lEJbaKk98INchOWLiNrQhCCa9Vj7WWtKwX3lxIR QaUbA0NDHiQyT9IKEoGkF5LTXpSpLyCHYjPQBxSJ6Z HZSkR522ytYcFC4RUl5QWtFlID9cil4XSpOcJTYpBmdKTvp4QLmkBG3YnFItsCScXNFtNYVUZrOyC8ke y1GnOlAjCBLYFQgkMC3Ji9JvrHDbWMw+Ku6EHV7nn0FnEXunPCMwLY1ofo3IFUwBNnUlG3NusRrkJYej QMGbiGYAPWIwJOVwLWrbRhQ1JVBQKBDukGBvVJ2xAQ 5uVNBsEOP2QyA8ZPSZYW8UPFTyBVTuhQJaEQAbSVKOBI8QFUfjINJ6QVEqqhJjkGSoMTsgSE0QCFLyrg QgMzQgMCBSDQo+Py0WWB3gj0KjXMwdFfHsJR9fpa5TPDlFSuBzX7Q7dNSnH7C2GEeaVy4GZWHgIZGxZo RvOJUHDImtHC4IMT7iixH2WA7UxVPqOARdIDNitQSk JQe7H24vkPKjSQhzXZ0SSLT+Dillon+Pk5GLQKcQXXhSMGxYnNqUVIOJjJwA7SwL6PPy2QvM1UdEC23kVxl wcUgMSudRI1DJD8lLMRkPFQNFP0JwUMyhV0jrlTfGJRdJQWZOaBhX91nhBSlEFSzWARnBZVdMc3OFSZu D1NyoyOvkEsxyiAeXETsDUCVAS6AMOjoviKlbOTjpJ oaWC30yDzxIR8RDd1CUyTkWV3chm6IdSMqSk8SHWCcWs0ZYEHbXTIfBDNtBJJ5YQFxImGjVWjaYTTfOY IyMLN7CILwWZXdYL7HNgDwQRMpTkK2ThFaSMRzXGLcda1FMZZmXFKaCkPwBOJdWMFnDQJpJEkjJYMaNJ TgGYG4REWlTANpUN7NTqIeJLPfQHYdMSKjJHXvXAAu ul7AVFMaKUKhCuR3RPCgJMHbSKEvAWuuSYIrWYY7GjY7XGGpNQQpCM1SKaYgRFRiJIF1RoZaURToUVJk mc7UJGSnQNFrBMCuQSLiDJYfHSJgQVkvYYYyVET8FnCbECQoMPVvXL6EDnTvVZYuIIP2NIUdPFKxNSQp st0RVEKwPFMpPYv8IjOpQWYoRJNpGHftLERdBFKeHY J8WUJxOOXkVT8XWmDvXWQpQPQnKGKpJCEjHVYfqt3FFRVkWABfAlYcLyTeCBTpBVMpTKgwCJIoSUM7SY c5UIBzGMTqVV7NLnLyAMIkJAIfXEgbRAEvNLLnze7XKBVpBMTdJQP0TdVcSJUvXFSoTRwtYNSfWHY4GD X0JQTvFGOcIK9ERqXyRIXpUWM9OdJeXFShKSNjgj1N VGAcSOIoSYlqFgIuJBBlNWTaMTqxOAWfVMF6KrUlJBOqIASxAF5TYsAvIVXdQob7PEiaMPWsPKHghf0Z UYGqNPOoJtgiFBTqRFZqDQNxUZgjVGLbNJP8YHE6JXLgHKUiMF4REmVlTEIlLxocMCIgUJPzEILnyi4S GRDrAIEvOVK8WpRiRMMlBZPdJCyrTPJrIWW1DsX1NJ GtPHOeVI4SSxEzNYHlQho5YnTrGMFwYVPigd4MJANhSTBsZNE5FvYwTJQuHHHhARetBXJiYVWaYlR6JO LrABKnQO8PWhAtCQEnLpX9GIClBKHlAHQxhg6LWZQvFUBeDFB7NWMpOSUwHLWjRIinAXJvWJYsJaH7PU SzEPNkEK4EJhCzTRZxOrJ4ZPafPYTbTZAhvo0ZHUNx HFMqHhk9CzVjYMBoAAPiPWw3enYbzGOaJJe3ZB9RO6EtzzRvCbgTLe3Cl567JQJ8BWGkJw4MF2qgMk6c ZZPkQIWELj4LGRi1NOM9NeywTzIkGzuaDTT4CbBmLdB7RZV4VOLaSBDbUWq+IDxkZDUyNzBiYjEzOGQ5 JHlfHIB9BxzcNCz4W4WiTwD5Tm1lAREXFt9+FMlenMEpmMieJHVWAhHlPgEqQQwnFWPSJr2Q ID Date Data Source [id number] 06/07/2021 01:34:00 PM EST [facility] Name Value Range Interpretation Code Description Data Stephanie rce(s) Supporting Document(s) SARS coronavirus 2 RNA [Presence] in Res piratory specimen by [facility] with probe detection NEGATIVE [facility] This lab was ordered by [facility] a nd reported by [facility]. ID Date Data Source [id number] 06/02/2021 07:56:22 PM [facility] Name Value Range Interpretation Code Description Data Stephanie rce(s) Supporting Document(s) History and Physical [facility] KHQCZm1dHoGQLjYq34/WIDqsGMJia4PfPDteULf6YYuhYXTqU9WgNIH0mG1lMJH9HArHWbOjUrMfIULz lbm CeMvjTIqFyIIEsLtwSSeSiASgyDiqoyWYxOI2WoYE0AHQsA53nHKNlFOSgN3NzEDM9TGR+Dt9MXPEeoS XiUJ9EYdrY1B1tr0vBAk8+kJ0Upc2JC9YG7bjnl2jgzK9EqzlLGdZaJ2KneGP09BvdL+P++gEaAItb8V 2zuqqrbH2QYYRdmh2VwccAYJMB/70RB6HcBMuF/Ambika/ [file] nWxC20V9LAjw8LhjdpZmuCW/Jvi9z9mm2LzqVPUVdqAjxylgv/S9+b7wkqm+DJbtiundq9B3kTyC/Ángel [file] AgICAgICAgICAgICAgICAgICAgICAgICAgICAgICAgICAgICAgICAgICAgICAgICAgICAgICAgICAgIC QyDIKiYJMsLWUoSGVhHFFnAIJiIEEeVB4NDKGlZROyKFJvFNOvSUYsMYGkVQUmWQUtSRMkYBHbVXEcET AgICAgICAgICAgICAgICAgICAgICAgICAgICAgICAg VDTxEGNjIQSfAVEiNLVoBXOsSZRmECLzCMZdANQcUENrXQ3JWTKmNTOkFIVqFDZqFAVpZTWaJUKjYVKu ICAgICAgICAgICAgICAgICAgICAgICAgICAgICAgICAgICAgICAgICAgICAgICAgICAgICAgICAgICAg FVTfPGHgBTDjDGJtDKFgUY8MMNAiOFGzCAWqEPXrUZ AgICAgICAgICAgICAgICAgICAgICAgICAgICAgICAgICAgICAgICAgICAgICAgICAgICAgICAgICAgIC OeOAUnAFChXXQqVLXkZURvRSWqIJPpSXCyBN4JYNViPZQzOSEjIWCrWEObDEDmSWFrDNKePIMqMMGlQZ AgICAgICAgICAgICAgICAgICAgICAgICAgICAgICAg ZCClPTWvZEEqTGDhXKDzDHHqCXQoTIOuJNDcNJThIYHuYRFeJO4GDAFkGHFfDVErZFKoENCkKEDoHMCe ICAgICAgICAgICAgICAgICAgICAgICAgICAgICAgICAgICAgICAgICAgICAgICAgICAgICAgICAgICAg JHOvHMLiSEEiSJWjTWBnHXDwTS0MRTUdANMnAGBiEQ AgICAgICAgICAgICAgICAgICAgICAgICAgICAgICAgICAgICAgICAgICAgICAgICAgICAgICAgICAgIC MdXRYtNANvMYNhBHMtGEXxKPGtHCYyGIRyMAChLY5CEMCkELPqNWGaITRxBHZyQTLcCMUgGAMkKGQdJU AgICAgICAgICAgICAgICAgICAgICAgICAgICAgICAg HUAyCQFmJDBaILWmGODlJQIsRMLdVYLhLTGgCZOiTRDzETVcNGYyUS3NEFQdYKHjWMNfKTPhMGFvUPJn ICAgICAgICAgICAgICAgICAgICAgICAgICAgICAgICAgICAgICAgICAgICAgICAgICAgICAgICAgICAg PMWhCLGoHCGuXNMaJRLuMAScXMYyGP7PTYGyJPTpNL AgICAgICAgICAgICAgICAgICAgICAgICAgICAgICAgICAgICAgICAgICAgICAgICAgICAgICAgICAgIC UxWCEuKVQhILJpRVThIHMrUAUwPMRcNACoVBSrGJCoGY4MHH98aBNaw6P0QITsNI6vimx/Bj9UCOhhgu KdoPGaHZ8ORaVsTC8uvx8SFzAhHN1ftw5GQJiATtOe Q6B1hSEsRYZgTDHHAlOwK66qOScmAu87CXjuZDVoVoIaWCv8It5BKxRhH6wlYSOyGiU3ZIMiNoY9KMHa IlZ1GUXpKlJwVLArUHOiXPVvAFXVEBV0BFFuXvGuOcZxRBAzRHzbEULRRO2OBiZfE0OxyX35ZUxLZn2+ TSrrdpFcNqqJHhY5DWIii1DzONe1HT9NEBBjHguea5 AbGKbrILVMNFuuFU1YBGV0ZAO5QVYoQn1TUGKzS099yuEzJP1MEg1HQqBoLJ0pin5IHPwkYQXtZphVKi u0IGoyYP1FqNNpIWlQYoQcWpjfZHbnZFUNHNhxp59dMUkghTNqcjsrHGPEIJE4DLPgCkB2AdQfMqOwCJ Q3MSYcSG6zRLraOU2ZEBC5UNecIAXlBXQnE4uFJwTd PSLkFPHuzFhfLF0ITgMyW3StwmZktQW1QxZcBSCPXu1+RXbtuxHmDviOEsU1CHQgm0MvXUt9YX8WSLKb EGbaYC9IRMRnqX8vQPmvGC9AEuU1ZBCmJJYHHtUtU06wcTSaBMr2Y1WtUtWmVKMwMkuxGGImBAliOtBy ZXMgWyBdDQogID4+ID4+FUksLR8LYJjdrgPtXHXrVr 1XTVUaQVPhUL5mLOJeILLlV6H3tRncUYXWLrPiD3qpwrrcZY3oMDVsT236bKgalcWgLER8NCHhWx4KMU StBHH2CGFfjIUjLQNbLZOTCQhyXJ3UrISnZAD6aT4uMNazXWEcTZWfW1yJZpHkvRtlPE14aDnfeeOctG BdDQo+Zq4UAN2vf0QuREs4ixAvCKslEQKhHPreQFTs TEOoOIPxAXZ5EQQ2VXGVUwKnODDzAWBpCPldOTTsWVInyc2BSZUdARI0TgFlKbZyEYVkMWIkQKtjJPHn KSXyXDV2VWGtANHcYX5CFdPoMPXbBNRsWFzyFLJpOPRdqh6LQQAlDLKvKFKhQCRrDXAhCFUkVKitJBAh BEZ5EXYeMNXzZXVwRS4AJbAkYSDgWBl6JLVmOQHyHQ Mraj6XTLIdDIIcNJV8XGYhVTQiJOYsGYyoRUUxODPdLLKrBVMbJNEeOU4VJxNkGZJcHHA5KRNoIONxMF Saml2PSBPsWLQeXWIhPQKnGITgEWWnNPyrBDCwPLB7GfP3WUQcZEReBM4WDnKbXAKkDQwzAACkREEwVP Npjy3TNHLmHGQfROG1CrEeTWReGGBlNPnfAQRrEBNs QIogZICoPQCfNX5WBnIhEGWjSrKdYAQuPRFpAGQvsq1CVLDaIYCaXjTkDjKcESEzIUJsALfsHNDuPEO0 BKSgCBNyNCYzSE8ZKxRuYOZlTugmWCOfDHTfNBPily4UWUEuHCEwOsH8YvCkTJBwGOCdEQzlYALkCMT9 DtO6JDFjEVRzJQ2KNuVaNGQjLbg2UODuYAFqEIKqyf 0PXFVqYIUmISNwCaYgKAAlEUTlVMdiHFNkMOB3KBs0AKBnRSLcTZ3EJkUmPVRcDuw3BYifQJJaLOYmlo 0KTHGkSPAdHXj5LhGyKZBhCUGuIDnuBVSzPGEsZIZ8YYOnKHPlIU2CEvHoVOCiMiBxAEKpIDIuRWUewy 2HRKVjWYPjPKXxIpUcGAIoDSLjSWeqETVbOOJqUod4 IFLwMDCgRA4QFpEsQWFnIqX2VQSkXIMdCSOpzs1YHOUaVCAfHyN8LGXnRGZlYENkHIhjQJKrLCWjWrD7 VTEgPWOuAK5AHeHgAZWmBsT3PFIrMUKtUTNqfz2IEKHcBHZqILC9LjFdZCFpGDGlLJiaOKLoNGZ4UOF8 RBRrQZGdWS5HReMeAXCeWYC3DNEyWCAdLKZexj9GIS UdERY8XJd2ZBQoPAFwERKcHNkoGAKfJIL9LEz0VKBnBJEqQD1GQnGlNBNwWDJfSHRxCGVbOZYpsb7FLU MqDMX0TNY9HvTnUXLeSSYxUXfwISYeCRUuIJH8DVQfSMBnIM5BBjUkIOJaGFI3JeuvLJWaJYEmdf1YZE RtTUR8YXg8OkFaMGYzEIIdEQzqZHPfGHCiBYH6BAQo JBNiBO5XBlNpNZTxQUX3XbszKZJwRRQdrd1JVMOmJTU9EBC1LDJjCETrSXMcGPgqMJLyXLA6JUO6DJZh SOGkHS6LSrPdRTEaVNKaTSLkKHYiZGAdgt5SwCKxpMtaxi6BNHbBBb3JjSewOBYiNAbjCx2sqRV7AYIy TUEEQf0GbmKcCFQwTVZMDPdhDSDjQCUzMvB9WMRcBr TmSgD4YoUzGRAxOQI2DYQ1Uod9RuJ9XeA5UOLgSFCmUNB8BACyVhCqXNZaJjYyCAb1IIz1XIZfJrI+IF 0gDQo+Xg3Wk9KjjmN4dgWpKVf4IUBsYE1LCHTYB7HFFd== ID Date Data Source [id number] 05/30/2021 08:56:52 PM [facility] Name Value Range Interpretation Code Description Data Stephanie rce(s) Supporting Document(s) Discharge Summary [facility] HWOZBk0fBzAYTjYf08/LACvrVESfs4PpELdnAPm1VIvkWQVkS4ZqZWX2uV0fYNK3SDmRMpKqObDaUJG7 lbm [file] e8t871dM1esGj8OQxSSNlW0hVR8h8TpaPXz7UX/ [file] AgICAgICAgICAgICAgICAgICAgICAgICAgICAgICAgICAgICAgICAgICAgICAgICAgICAgICAgICAgIC AgDQogICAgICAgICAgICAgICAgICAgICAgICAgICAg ICAgICAgICAgICAgICAgICAgICAgICAgICAgICAgICAgICAgICAgICAgICAgICAgICAgICAgICAgICAg ICAgICAgICAgICAgDQogICAgICAgICAgICAgICAgICAgICAgICAgICAgICAgICAgICAgICAgICAgICAg ICAgICAgICAgICAgICAgICAgICAgICAgICAgICAgIC AgICAgICAgICAgICAgICAgICAgICAgDQogICAgICAgICAgICAgICAgICAgICAgICAgICAgICAgICAgIC AgICAgICAgICAgICAgICAgICAgICAgICAgICAgICAgICAgICAgICAgICAgICAgICAgICAgICAgICAgIC AgICAgDQogICAgICAgICAgICAgICAgICAgICAgICAg ICAgICAgICAgICAgICAgICAgICAgICAgICAgICAgICAgICAgICAgICAgICAgICAgICAgICAgICAgICAg ICAgICAgICAgICAgICAgDQogICAgICAgICAgICAgICAgICAgICAgICAgICAgICAgICAgICAgICAgICAg ICAgICAgICAgICAgICAgICAgICAgICAgICAgICAgIC AgICAgICAgICAgICAgICAgICAgICAgICAgDQogICAgICAgICAgICAgICAgICAgICAgICAgICAgICAgIC AgICAgICAgICAgICAgICAgICAgICAgICAgICAgICAgICAgICAgICAgICAgICAgICAgICAgICAgICAgIC AgICAgICAgDQogICAgICAgICAgICAgICAgICAgICAg ICAgICAgICAgICAgICAgICAgICAgICAgICAgICAgICAgICAgICAgICAgICAgICAgICAgICAgICAgICAg ICAgICAgICAgICAgICAgICAgDQogICAgICAgICAgICAgICAgICAgICAgICAgICAgICAgICAgICAgICAg ICAgICAgICAgICAgICAgICAgICAgICAgICAgICAgIC AgICAgICAgICAgICAgICAgICAgICAgICAgICAgDQogICAgICAgICAgICAgICAgICAgICAgICAgICAgIC AgICAgICAgICAgICAgICAgICAgICAgICAgICAgICAgICAgICAgICAgICAgICAgICAgICAgICAgICAgIC KnYXPvVILfVRUpACb2Z7inPYMiLZTiSO8cMHl6Fd3+ MDoRLnAlALC6doXcbI9LBI6ea5AeKQngVQBdo8TdHVm4EM3BSFDiNBnmMA3FAIovww7JCJLbEVWipTFR h9whKpZkNTH2HNZeQhryUO2CMAFdM2byuyUvZOCoQLCQFXtyCHQQNLunIPGNPJVoHQUsUcPmAsAtMCJh AXHyODOQWZZ6CTCdWkBwDFNkKMVzEuPfHRLUNLClKK NqOxYvIUJxBOEzXxwxBEKOULW5OHPmFiPaEELhTBZvKQ5BTPRtO878mwXoRGIYXc7+DQplbmRvYmoNCj SmOCAez2ZjSEh2KI0NFNLaCfupf8TmNjZuVOZFGEgyNE1VXSZ0UAThNJMmUh1GXDZoE952fuMeVQ6RGb 0STkCjIJ5xka8MOoCfFITqRrxULrq8PAagAA4XrKAv RDiYiNNyyCHvB6GyD5NpyDLtpRZarCLQUSkai1Y2JBCuQb39uXG8QQS2WUSiHsD1BvCzGhQcJSC3PQma EG1sDRppOU6REKL9LApzCERgZLRlQ9lETtKbNUPwXPPnyOjxSO0RPdEpK6WgdfYgaNA7IfVkWOQUAh9+ TFrhmkWvFzeZYmQ6FDHxv6HiZJk3UO5GPAJhIDxuXL 5MGJXfwH9nVYwuIR8UBsH2GXLrHNKNJnTjA38joJGwTZr9S6ZjUzWfZGWbVscnOVJdVLyoYdLwKPRdUg BdDQogID4+ID4+XUdfZT5BTQrtxsLeTEWhPx8SIZAsBBYsBT1wKQRtUMIlG6Q0nRqxQPXHDoBeC0jdye oqFB4gUXInH750xDcjoiYkDAZeJVBnIj1QNTOnTZK3 XFHvpSAyBgJiDXSFTWnnYF1BoCEaUXZ1wT4kNHkxXKUcKGVdJ9iWAdWpfIetJG94iCogtrHkzQYdRPu+ Nk7EQR3xd1FvKVe8zxKhYEgnWZS1OZzcIOJhUEAbOGEzUAO6PLV0PFJEYlVkSLCmXVTiMAacAAGqTOQz il2OPABhOJX8JosfIbQaDBOfUQHyYYhaRMVyBRl8Xv CmSBZwCCOtUW9QOoVuYARzDDYnDGncUIHmJTCqsy6SUBKsZGViPBHkQITsYVJaVPZeGZfoDRPeQBU5Dt VjQAWwVRStKB1IOcBfONMgPPr7PKSqDUFrSGWmac0WJSVlMWOeNLI1RPBaOQYhASMfKNvlBROvFHWbHw d3KMUiJPBuWJ4VWjNqHXAiPEH8RNUwRQBaQBDzyb0S COIhRLCoTej0OmCfCZGaRZXbUDmfPVThWIY8KEltCCFdINAyVX9IImUjBHYgBpJ8MKVqSSYnIKCtrq3V SKUjTJUsKJQ5MrLyIHItMDCaLBnrVTWyWAB2KmFfJGPlIWUxMA6OCqUaUJPdUaA1JAXrSYJtPUKspz4P MAGtLZAaBQY4SqJbWMXmOCBsERugCVPpRSI7OQs7OI CfAMFfSX0KWsQrGMHzXqAxJxnmMSNyYGZgar9CYGMeQMPrWNM8BtClRDPiWNUwEXjmVMHqVMI1VmvgIQ SmMCNiXA6LGrRkVCNlCoV7BGCsTWZfBJUofi8WPRFdKXDvYUJtQKDpEZYpYPGpMWvoWXZkMJI2QTGuRL ToCNDySN4GExKaLGPtPAA1IzZyYJQqSWWtrh9DIEGo OWS4PoM3EtJrWTJqZHJgRGaeTOTdPFC0EnB7SKSjUGNsLT4YXuByWHBnCKF2GXJvNSMxSKIvzq0VKWHg CYD7MUqoReMtFKMhAXBiLElkCSCaUNCrCWSzEMHmLVQfGD2YKvTeISTcSYJoXKSzQNWoLEAcxo5RHKPh EJX2WrB1GuTcSRPkFYSaIKpyULQiQIMwUBW6MHGuTZ BrXY7GYeGnINLgZMU8QPTjGFHwIHIohy2KBTOhAVS4Jim2JnMrBHXcOKMzENlzQVGlSUQ1IwB7LDCzQN PaRT5BBqYhFWJiXLQ1BSzlYTBiSSUtsd4NESPuNYO6VMQ8FnSgLIIbZHFySOnjLCGxUWW5IDE3EPEnFY QeTW0XSlYhXNToNRWsBFJjQLTrEERjtf8ZPJSlWXV1 EqR3VyViAUJzSMUjTJsoRMUcDLX3HZE3TSLmVXMbXC1ULmHyYMEbUYj9KSWmCCXtWUEkjp8FJPKxBEY4 Knm7QUMqZWWdHANtPPgzJDYyZXQ9TXG9ZEHvARUjBY1OHdUgBJJnASqdDKAnXXImGFNzng7XRVGtLFC3 XHOnLuKrDSBmAFSvEFocFESjSOjcWVa7JDQuLDFoLT 2GClIhWZBlTqG3SNIyTTYoXAOcaf5BRNYxVQB9AYCjVKEnPACmROGlWMxtDMJdCKatBfQ9HKJjBIRbAA 6KFyEfLQPpJnR9OYCdSDKgAATldj3BQCKgNCW2SmW2QbQwZWDvIVJeCYvcXLPzTPn1Aft1AQHeDUDiYQ 4XKqHxVJGqAuW2BKDiBWGpVBEhle6DYQVlLDT4UlH8 ZROqWZIdDPXiXTcgXMHaFEe0WucuYHSaKZVrVY3QOsIzQFJmEod6FBLqMULvNSKdlk1OMKOrHVA1Ute5 FTJqWVMcWZBxTKpgRCEbWQf0MShyBASwAISoRI1MQnXhECGoUmpnAtIcAOVqRPQdom8ALHIlIJE6DHck EOCfJRTySZHkJZiiLTKvXNq9ZShsYWTgTUBwEB0BEy WaCKYcJDMjLwJhQGIwPWLptj2NnPWnoNftwr8KTDhBOn1DxQhwAKK6ISfuHc5pmGV9TQAwIZZWMz9Epw VcITVjBBDMUKgjYUYsHQIxPAt2TmN9GMnuAFRmUSCmNUY4HVZ1ZJJuPoAfSALmDiB6KUWcCpf3OKl2JO AnBHH3LLF2Exh7EvM1KNQqJyYiRFG+ML2pSCe+Ip9Sb6IydgU1nxPyHQw2PVN2Ie1XJWILF4JIYw== ID Date Data Source [id number] 05/30/2021 08:24:46 PM [facility] Name Value Range Interpretation Code Description Data Stephanie e(s) Supporting Document(s) History and Physical [facility] JYICPz7cTfWXWjRs65/KWHcvDHYmm6TmTOzxGVl6MJlbUHJwK2GmMOP7oI8mXFV0ZEdBZzLfScIvEIH3 lbm [file] 5VFaK9ROH2cCDrSm7UCrI5QZgTGqOjTP9QOJi= ID Date Data Source [id number] 05/29/2021 12:16:49 PM [facility] XR ANKLE 3 OR MORE VIEWS [id number] RESU LTInterpreted by:Kristine Hernandez ankle radiographsINDICATION: Foot [...] rce(s) Supporting Document(s) ID Date Data Source [id number] 05/28/2021 01:08:00 PM EST [facility] Name Value Range Interpretation Code Description Data Stephanie rce(s) Supporting Document(s) SARS coronavirus 2 RNA [Presence] in Res piratory specimen by [facility]DE[facility] with probe detection NEGATIVE [facility] This lab was ordered by [facility] a nd reported by [facility]. ID Date Data Source [id number] 05/23/2021 10:50:29 AM EST [facility] Name Value Range Interpretation Code Description Data Stephanie rce(s) Supporting Document(s) Progress Notes [facility] GFEAHw3eLyOIXdLa27/HSYdyYOUot7ZpYOcyBHz1UDpkJHBvH1JfYKV0hP6wYRE6JSvFChBsJkQrUAAr lbm [file] AgICAgICAgICAgICAgICAgICAgICAgICAgICAgICAg ICAgICAgICAgICAgICAgICAgDQogICAgICAgICAgICAgICAgICAgICAgICAgICAgICAgICAgICAgICAg ICAgICAgICAgICAgICAgICAgICAgICAgICAgICAgICAgICAgICAgICAgICAgICAgICAgICAgICAgICAg DQogICAgICAgICAgICAgICAgICAgICAgICAgICAgIC AgICAgICAgICAgICAgICAgICAgICAgICAgICAgICAgICAgICAgICAgICAgICAgICAgICAgICAgICAgIC AgICAgICAgICAgDQogICAgICAgICAgICAgICAgICAgICAgICAgICAgICAgICAgICAgICAgICAgICAgIC AgICAgICAgICAgICAgICAgICAgICAgICAgICAgICAg ICAgICAgICAgICAgICAgICAgICAgDQogICAgICAgICAgICAgICAgICAgICAgICAgICAgICAgICAgICAg ICAgICAgICAgICAgICAgICAgICAgICAgICAgICAgICAgICAgICAgICAgICAgICAgICAgICAgICAgICAg ICAgDQogICAgICAgICAgICAgICAgICAgICAgICAgIC AgICAgICAgICAgICAgICAgICAgICAgICAgICAgICAgICAgICAgICAgICAgICAgICAgICAgICAgICAgIC AgICAgICAgICAgICAgDQogICAgICAgICAgICAgICAgICAgICAgICAgICAgICAgICAgICAgICAgICAgIC AgICAgICAgICAgICAgICAgICAgICAgICAgICAgICAg ICAgICAgICAgICAgICAgICAgICAgICAgDQogICAgICAgICAgICAgICAgICAgICAgICAgICAgICAgICAg ICAgICAgICAgICAgICAgICAgICAgICAgICAgICAgICAgICAgICAgICAgICAgICAgICAgICAgICAgICAg ICAgICAgDQogICAgICAgICAgICAgICAgICAgICAgIC AgICAgICAgICAgICAgICAgICAgICAgICAgICAgICAgICAgICAgICAgICAgICAgICAgICAgICAgICAgIC AgICAgICAgICAgICAgICAgDQogICAgICAgICAgICAgICAgICAgICAgICAgICAgICAgICAgICAgICAgIC AgICAgICAgICAgICAgICAgICAgICAgICAgICAgICAg LNCfWUBhURXjFLGcDNCmPXOnFCXvCRXmARYoISt7V5gtTVIgROFdEH6iUVs1Ce1+BVeIOhPeGWH7cfSn qY7FDC0bb6GhVKmbHUZnr8JnNPi4QZ2DZZJmIIepMO6QCZbflz3VPSEaQLSqtBOPt8lwZlEuBFC4BBVa OutuCS8UQWEtX6kvksXfEPWvNITQMJ3JAeEvK8TejI 34WCHPJm8+JOvfqjQhQcdZHsD9JEPlt3DkRTz3IK8SWRCfDgkho6BmKkUfZHMLLAnrKF0AFKB7NIX9YL AuUf0JJQBiG382opWtGX7BCo3HGvBsNP0owz4XToMyZAJoVdcYAbu9XFrtMA2ZcMCqHQcDlq3onzUhnh YKy7ChvbGbvMFHOBFtC5AfWGLupEHcifGlcBNxKX0h UF2tEZKpRZWgQwIqRAJGWE9SIEFaNMUfnLTeUBStKFWNOT9CZNueNNM8JmhkpdVhsIEpSKeoIF2RKAPh bnQgMjUgMCBSDQo+Eq2XQP1gt5UjSKzxDhDuKS5jkz5XXBfIPeRxM6M2uLVcQ0L6SLtiLb3KRXNhMVEt DaPvSSVEJLzmTJ1OZV8dwcN4PF5IzUPqOHZvBHKkkC KrQOf0S19kdNAfNXxkBR2QDKQ+Dillon+Pj2PEMVjDCEdUOXnEdVjFDEQItIlV7QuJ7TLn7HeS8GoOL33jL mwazStLUvhRX7FLX4fDDGmOIXALS7BpWMdsL0jabEyPJBjVIZTIhVaH14cbSFgNTRpZRL2FTVmJt5RGP QpK7EzwpJsgAkzhdUePVMrPKWXBF9ARGsoknHvvCQq gCvlTZ49tDtiWH5TOa6EPzDkVJ4zol4OaBLkVn0GELMbVY4VWOOqAXZcCREcVPG5XQYmXxOaEBqwYINl ZNDqIHC5LAQjHPImOA6MSiJgDAWeHjI7ICGoWZMjTNOsyy5AISRcSKGbFxE5RbIjUXEcZFMjISptYDCl QZEpAOP2TUUbRTEmJJ7NPyWrQYTgMUF6PpTrDMMyTV Bfwx8RDZKzONAqWdX8VuUyPTTuBESoGZzzDAUiBWTxQLD0ZUUrKXSrGJ4KYzLjDWYaEAQyDrOpOFMhSZ Bveg1AXRMcGMXlDzJyGEHjTHIkUUXyBWzeOYChAOK0OUjiLPVjIYPlTC8QSmUjFSGxZCM0LbcpTMVaWV Xbvz6HOMQiAWJjXEp0QWSdKGZsLLYjHBdaKKPvMWV0 BDf3SJSeYAAuBD7XRqUkMMZgMPj3LYCdDQIzPBZbyx9YYFTfMFUaAuokYtZpWTGbJGWpAVxqJTGbNST8 SSWdLTSpUPJwEH5KVqIlGMJsHQkmKHcgIFJdRUAwxz0CIIZuSBTiXEA3AoXsBDRtQUJrDSvqNKOjZRM9 VgZaVZVhOXPcME9XDbXbUDYiUDm4VuVlSMXcAMDjgm 2NFLFhMNZoLYH6UtTxFSBeYUJrCDexLZGbISLhWXT8PDCvQZCsNJ0GVzKjEKFgNbD6QrLiOKYdRGTgic 8OCBNwEJLcKGY5GiClKBWbFQJySGucMVAhPUAvATjcQQIsOGLaQD0FRpCcPWFbQfL5TyHrRANhGDAatx 2MSWAwSTZwZvdrLLLoIQPrCELzNDe4nlMvtITgHHy7 PP7AL1OsraThAdmZJg9Fa092GQG6HEToRu3AL3ukQd7kFTSpPDRRIx8UPRv5M4YuGPR0QGG3NcIhHgT6 JkBdWJg7IjlfMwhqAgKeGOX+WKa6PyFgBCL1AkSqXTX0LGj0FJN5SNF5GSTiPCSxMXF9Jf7dECTLXp4+ NOkxvVSwrKkqSUKDVsRsTOEeZLrvTYCIZf9J ID Date Data Source [id number] 05/22/2021 11:26:20 AM EST [facility] Name Value Range Interpretation Code Description Data Stephanie rce(s) Supporting Document(s) Progress Notes [facility] ZFLHQb7jZeABPwCn18/MRKpaVXTon7AwSOikZIb1JYvsYZZjI7TkWPE1pW6vKMZ3EXhYFxYjRaScVSKf lbm [file] ICAgICAgICAgICAgICAgICAgICAgICAgICAgICAgIC AgICAgICAgICAgICAgICAgICAgICAgICAgICAgICAgICAgICAgICAgICAgICAgICAgICAgICAgICAgIC AgICANCiAgICAgICAgICAgICAgICAgICAgICAgICAgICAgICAgICAgICAgICAgICAgICAgICAgICAgIC AgICAgICAgICAgICAgICAgICAgICAgICAgICAgICAg ICAgICAgICAgICAgICANCiAgICAgICAgICAgICAgICAgICAgICAgICAgICAgICAgICAgICAgICAgICAg ICAgICAgICAgICAgICAgICAgICAgICAgICAgICAgICAgICAgICAgICAgICAgICAgICAgICAgICANCiAg ICAgICAgICAgICAgICAgICAgICAgICAgICAgICAgIC AgICAgICAgICAgICAgICAgICAgICAgICAgICAgICAgICAgICAgICAgICAgICAgICAgICAgICAgICAgIC AgICAgICANCiAgICAgICAgICAgICAgICAgICAgICAgICAgICAgICAgICAgICAgICAgICAgICAgICAgIC AgICAgICAgICAgICAgICAgICAgICAgICAgICAgICAg ICAgICAgICAgICAgICAgICANCiAgICAgICAgICAgICAgICAgICAgICAgICAgICAgICAgICAgICAgICAg ICAgICAgICAgICAgICAgICAgICAgICAgICAgICAgICAgICAgICAgICAgICAgICAgICAgICAgICAgICAN CiAgICAgICAgICAgICAgICAgICAgICAgICAgICAgIC AgICAgICAgICAgICAgICAgICAgICAgICAgICAgICAgICAgICAgICAgICAgICAgICAgICAgICAgICAgIC AgICAgICAgICANCiAgICAgICAgICAgICAgICAgICAgICAgICAgICAgICAgICAgICAgICAgICAgICAgIC AgICAgICAgICAgICAgICAgICAgICAgICAgICAgICAg ICAgICAgICAgICAgICAgICAgICANCiAgICAgICAgICAgICAgICAgICAgICAgICAgICAgICAgICAgICAg ICAgICAgICAgICAgICAgICAgICAgICAgICAgICAgICAgICAgICAgICAgICAgICAgICAgICAgICAgICAg ICANCiAgICAgICAgICAgICAgICAgICAgICAgICAgIC AgICAgICAgICAgICAgICAgICAgICAgICAgICAgICAgICAgICAgICAgICAgICAgICAgICAgICAgICAgIC AgICAgICAgICAgICANCjw/gHZtH0uevADdkuJ5B4dzCb2QKl0GXO9fx6ZsNQXzVKcskqJjDtcETxZnBJ NfEieVKul9NQgzKJ1OtJIgT5TpC5IdHHarRC7MBCRk JBHtiYSvLGOrNIYiGtJ2DDFqDFmbSX3HaZXxYVkmHSRcOQLvUxDqFQSzGM7DFHSnB683tkWyUp0PTe2J JgKpMG8cmt3ZAbZgQCPzZvbZTvs2YFtpAF8KhXGbyGNtWsKpTWMHAaLjQ5syk4LpYyApWKLGIPhiLJ2E o7GcdUSiILw+Yb9XSM4cq8VxGBovIoFkJI0ihm1JDI iTXlQdA2KgaLxbAUEra4zuMYCuTC4zsWEaLKT3NGDsCdQsX0EwN710d8tsUJX3EICpOaQxSpMaPdRgCF V0PVTfZE9pHNyyHL5PRYS7ZNejOLFeWRYlS2pKNnBgQVicIGIshIpzIE5COfCmL5YjemKlkILzHnNlFS INCj4+RLtndrFaHriMCvS3GQNgu8PdBIi5YD3NAOPi WFqiBW3PWFSggD8zTBcxCO6FLlGoIAXdZECGXnKsM94tiTCyWUr4A1UgOtKcBCPiPqprXIIxAUcsVfRh ZXMgWyBdDQogID4+ID4+GBjcZO3YEAfaypIwOEVeOo0SUALtRWAmLN9mPATmNRDcE7I9hPrgZCMDOaSx K6ynciikDH4iMUIkH237nKtjriWlLPPzDWUdFg5DOP MmDNM7ZDGmrVOlLeKuUMUELDpkNY1SaPJtYNF3zZ3pOCptQDKpSIAcJ8cRSbMevIuaHC11gRkbgzXnyX BdDQo+Cx6GKF0su2TqVGb4ixNyATloKMK0FYxbJARkMJYuVIWrXBR7WWS8PTRNQjXuPDRdOFLjFGhaEO XrJQBesw1WLJRuHVAzYoj0QzAmCJWpSSIuXYhkRMMw HXB3GmF9RIQaNQZwWZ7JHqKdMPNsXMCzCJffQZLfTSMyzk9NHVHyBECsRig2IYHtNDZdGWGoQCtaXXGc JRGdGDC7BKVwNKGmMO6JAgYtBOVcSTEvKXqvUHHvPBJget8HPVIqHVWeSNF5HsZfZPKgKPOdDEkzIJZj LBX3DjTcWJRyQPWrEC4KXaObONBfIZK9YCVrSUSlWV Guts4TVRWlRGJzJZB3GHJpXETwFANoOBkoNWMyHOV8MEM6STVdGMUsYG6MIsHaBDPfOHA4BZGmBKLkIW Gzuj0FVQAkGKRtYpfzEOEtMDAfQNDwAGmsYWFoMMJ1Cxm9CHEkTWYgBV1TFeLhIYAsEBt7NPNpCAPsNA Hbbv3GWRBjJGHkJTmzJmDbYKAbFEVlKMkrFEErXESl VFDeTLTpJONnDM1QTnLyCVKaRvLxMRezGRXkBNElfq3EVSYpYJSoXXI1ZVFhGHVbJUIcPNtrOKCnJAHm UhEnDIPyRBMlOW6MGjBfYUXwClY2VEZyCHPzHCOxff0EBSTyEHLpVnE8PbQvABGcYSOrEAvlKIJvSUCk EaN0VVRdWRMbQI2JEuCnQDGkFaQ4GAElGYHlXZTfhl 8XRVKsMFSqAdQ3LIKdFXLsZPMaXZynJPCuGHF7IgX6DGIiIVSgHT9RNcLiSMLuGbC3MLPqVPIxZPYxxr 7YCWPhPMYpFdzbGyRaNGTxOULhYBcdHPClXLS0QGFqRQXuSRSqPZ3HDbYlAOQmBjd9AGrjPNUfOBZcfj 0PBDXiMLWoDWu9OhKxQLOhQATrOXtyZKVyVFU9PKV6 CLUdMJXoPA2GOlYfIZXlLudtPnJiZQLqVCZlmc3IlYMunSkcgr4GHByRQp0XyQitBVE0BUbeZu8vwCOe XJKwYPTDHj9BfqUjLXPaWDRBCMytQUJuJSX5EWNcVEZgPILgYWJmNHG1CFD8LNNvVjD7W6LsKeB7JcF2 Nmz2IDS8JRIfMEAzVFSyLQXiKCufIyUsFLdzOnIlQZ U+EY8vJTp+Ch8Lz4PaeaQ4afPvIOlnWWInBP5JFBFAN6NNQa== ID Date Data Source [id number] 05/22/2021 10:04:00 AM EST [facility] Name Value Range Interpretation Code Description Data Stephanie rce(s) Supporting Document(s) Care Plan [facility] OMDHKo7sQtFWTzCe03/JQMicNNAlw2KvBYvwTXy8BAypOUMsJ7WzHJA6nW5fUNC5JVfGOvNxZdLvUUWu lbm [file] rnUiA1RF5QQSHWJ6PUZp== ID Date Data Source [id number] 05/22/2021 09:53:35 AM EST [facility] Name Value Range Interpretation Code Description Data Stephanie rce(s) Supporting Document(s) H&P [facility] GJMYIn4tYrSUXvSx34/PVCshWIJlu1YhKNupWFu6ESbiUINmN1HxEDY7iN2wGYJ7FTxBQwGcSkZvZBTf lbm [file] ZyK4I4EosqDgVkCgh8NTGlRgr+QE7kWAn+Pm5Fj1TzvxX5oiBzOAevTIV9DZ4ZMQBUR0HXYw== ID Date Data Source [id number] 05/22/2021 07:43:06 AM EST [facility] Name Value Range Interpretation Code Description Data Stephanie rce(s) Supporting Document(s) Nursing Note [facility] HECJRv3wUzXJRiWc57/XBNjrUMMxr2VrTIgqCRj5VIgsSAQtQ7NdSBE3lL8eZDW9YVjEXzObVxYyBWWf lbm [file] AgICAgICAgICAgICAgICAgICAgICAgICAgICAgICAgICAgICAgICAgICAgICAgICAgICAgICAgICAgIC AgICAgICAgICAgICAgICAgICAgICAgICAgICANCiAgICAgICAgICAgICAgICAgICAgICAgICAgICAgIC AgICAgICAgICAgICAgICAgICAgICAgICAgICAgICAg ICAgICAgICAgICAgICAgICAgICAgICAgICAgICAgICAgICAgICANCiAgICAgICAgICAgICAgICAgICAg ICAgICAgICAgICAgICAgICAgICAgICAgICAgICAgICAgICAgICAgICAgICAgICAgICAgICAgICAgICAg ICAgICAgICAgICAgICAgICAgICANCiAgICAgICAgIC AgICAgICAgICAgICAgICAgICAgICAgICAgICAgICAgICAgICAgICAgICAgICAgICAgICAgICAgICAgIC AgICAgICAgICAgICAgICAgICAgICAgICAgICAgICANCiAgICAgICAgICAgICAgICAgICAgICAgICAgIC AgICAgICAgICAgICAgICAgICAgICAgICAgICAgICAg ICAgICAgICAgICAgICAgICAgICAgICAgICAgICAgICAgICAgICAgICANCiAgICAgICAgICAgICAgICAg ICAgICAgICAgICAgICAgICAgICAgICAgICAgICAgICAgICAgICAgICAgICAgICAgICAgICAgICAgICAg ICAgICAgICAgICAgICAgICAgICAgICANCiAgICAgIC AgICAgICAgICAgICAgICAgICAgICAgICAgICAgICAgICAgICAgICAgICAgICAgICAgICAgICAgICAgIC AgICAgICAgICAgICAgICAgICAgICAgICAgICAgICAgICANCiAgICAgICAgICAgICAgICAgICAgICAgIC AgICAgICAgICAgICAgICAgICAgICAgICAgICAgICAg ICAgICAgICAgICAgICAgICAgICAgICAgICAgICAgICAgICAgICAgICAgICANCiAgICAgICAgICAgICAg ICAgICAgICAgICAgICAgICAgICAgICAgICAgICAgICAgICAgICAgICAgICAgICAgICAgICAgICAgICAg ICAgICAgICAgICAgICAgICAgICAgICAgICANCiAgIC AgICAgICAgICAgICAgICAgICAgICAgICAgICAgICAgICAgICAgICAgICAgICAgICAgICAgICAgICAgIC AgICAgICAgICAgICAgICAgICAgICAgICAgICAgICAgICAgICANCjw/fULqV2iidADlsvX2A0caKg4OKh 6RTW8sj1UrBZLfMYmqgiEiEmvOVpKnTIYtOzuJOhc2 UXntED5UhUZiT8CzF6UoLDsoEE6BNLNbBBXzzXDbLTXhDMOqCdI2SUUzLOwdCN4XbHWlVStdQFQoQTBz GD4BVHVxB076orVdUI0JVi8XAvNaED7ejz1EGkDoTUPyFfmQDrr0TWsxYL6UjWDrpBEqMqNpBGJNAfFc H2yyx5MqOqXbUNYEKZykCS6Ss2HncBXkAFa+Pg0KZW 3ni9HlGQwjAgExEL7myx0DBFrYVxBqX2VxwHxgOZ61fzLtrcjwQb38PABjjBNJBEOloHCTu3SmFSSRTv EefIJmBC6tUX9vSLQaIAA4ZmNpXWNNSA4NJZRtGBEymJUwSVLmJJXLHO2WRIzdIQM5QhaeutAevGQpXE nlNO9WKEIknvPpKqWeHALXGMx+Bc5RGN7er5MqZWwo YSJrCT9pud3PTSeMAfWzL4O4rSCuT9Q0PFcdOv4NYXEnLCWqRaHoHQMIFQchRM9IDJ4tmkC7YT0VaNZr QDSdNTCkzQVxREd7V96cdMScMAvkGJ5KMUE+Dillon+Tu5DHDRmNFMlMAGaDrOgDFVKXmZiT3ZtZ3NCd7Pe N3JlWO40eIpkieEtXLdxOS4QRW3vKJEyEWVCDB7JzV UobZ1feqBzSxAtUITPCwScR25miXEoPBEwVQCqQFCiHr4HBGPeZ5NwvfZkoBhadnAbAQQaUURINZ1BJD uvfqSirYDthGkzVZ32tRovCE7KTd5RNvXhYY7wnv5PtXCxUd9JOOHiLH5ZUOLtULDnNBNmENB2ERYoNz PnMKwzWAYoHUTaTKX0ZZLxSVUjDA6XDwEmWQWkJKh8 HFknEIHhOCDvbq0VPAIvCFPjEHP7SaFdRLNkYWQyZGvbXQEhRUBfMZP6NREiWKDlGJ7GUrAjEEWmXSGv DXCeNCAsVRXtjp4ANLOtPZHbPXI4SYCnRTEgGTKeZDsdKMTiGYNvBTBvZQQmVVIcGM5HDwOrYNAbGDY2 XFWpYWHxUUVkop8KIVDuAPBqUpysHUMyFKNbWILhQH txDMTvQZDbRMg4ADDbSEByNC8PLiPuTEYyGNZnHVFxKMZeDGDltg5BQOBbNZNxBXQ9QyUcYKLyKTQhIE chLJJvPBL1QnC5GZHyDHFrNC5JRlVxKXFtHMR1PXRyWWSyQYIaeh2YUQDnEIQkYyR4QOUoWDQbWPJlRT cjIRFcWIQ0DlhtTEJtPXDmCH6NNiSvURQnCFg6Zqcy QPClDQSchg8KJYDwHDHzWMF4BABkFKTaTPRjQTklLOZiGHZ6SwQ4NXNeZPKiJX0NGgZdWFMbIQq4Zsju OQTmVOMmsk3WILXxXAIrNEN3PoFlIEDzOLZtZMibLADcASCzLjbpWMGpQHUwEZ1EBjBpTQTfTvM6BnQf LWBcEXHdti2SKRAjPCOcIVwxXfGhCPNwAGRfVFw7al UwtQVfJAm0WN1FC3JrwsGzOfDVSg7Bk693DWO4HQCdHs4ZG3bhFr4kVCJoMKIOSp6BWMx0FMY1TEUdUY RaNXT4BpT0DQQ8YLW5HSImESU8NFC8NTL+EZlxBql4IMU4FvFlEeGdBEafGmamRUYmUWKpIPlmGaSsSt 4hLWRLGo8+EZzjrWTkwJreCNBLDaUcXPTiIZvlYNWKZg4Z ID Date Data Source [id number] 05/22/2021 05:11:40 AM EST [facility] Name Value Range Interpretation Code Description Data Stephanie rce(s) Supporting Document(s) Nursing Note [facility] SRNFQp0fLaQWFbQh81/LQEpkMWIfh0RdPGadQKm7JSyrVNRtZ1FhFFB1nD9cNOL8PGnUObQnHxHgJHAc lbm [file] tire maker+9D9OT7//+JUJKerl8FAsdCxopJX8bF3H6j5riIjpEvb+c4cAhJgGXAfkpBa9DEYoIVin82k9IPxd [file] D0V3NfYCM6NnYuFW2NVq2FEoU1DPF4qAJjJb8PUtQ1AeBSObRfDN0ITQn= ID Date Data Source [id number] 05/22/2021 01:27:13 AM EST [facility] Name Value Range Interpretation Code Description Data Stephanie rce(s) Supporting Document(s) [facility] System TRBQQl2gDlYKWwTg64/FAEyfNWTju0NzIBbeAJk5NIfpUKAoD9IqDRI3dM0mZKT3EMxEOhBrXaUuLYBh lbm HdElgCYuSrWXNyBkgLEdBhJQqhDumynIOxXO8GoRC4OFGxI77dDOSjRSZyQ3ZtWCHiNad+Gw1GSWCdlR MtSY6PTkrM0Yhuj7z0RO9laV/SsnBmA9REHVkJWoOxS3qaphMylEcjQ45v3S4ZzVEwDkhfE6zH4u+EO5 KvGRXVGvMCjSvy12rHxJGhhl0WZxlKEBNib/vVJlqM gfBOA7piOdCdznsrMAWYHpvQon0229Z18BVKKFZF1EBkRxPZtBDocIA3BTsl35QzEoZlfyeGZfmgyyum 0Thqb2O2ygCGRzwL7PX6tWHU4VBKo1GmqYI99DgjERbMEnlnUBs6wcTEqtpdEEl6iwzLeIHgvIIHppX0 uMMWxDQxyoCQcXhMgzppGeTRut1p450lJiLymCZ3II 6bRDJe4Aah1yZkOIAOazA1pjDUdKJwx1YI3jlzrShHCiVWHd/xYxCaCTwXFpQH8sruu4OXysQwIeAUko 5h5EvIc3uJs8gDlc8HAokmArJWTWvRILhfMtwiH/2JSdy7GJA+7trIabMpYGfEmJvtn1sdwJfQPuczVK qGSx1YkzkxyyejWvwHg9ar7bjcciTyydorkH4OmX4m [file] KpUl2QQgBiSnmHCrDsTD0HGXw= ID Date Data Source [id number] 05/22/2021 01:24:18 AM EST [facility] Name Value Range Interpretation Code Description Data Stephanie rce(s) Supporting Document(s) Nursing Note [facility] PQPMHn1bVzOIPcNe75/WNRweEAQdw8TsTZtlCKe4XNtsAYImW8UpZIK7eW6fFPX4FHnOEcLoNaAcWIWg lbm [file] TuOJ0CZo1BIoY4XDH4qRAnHd5QMdB9RXKENeWlED0LFUc= ID Date Data Source [id number] 05/21/2021 08:47:51 PM EST [facility] Name Value Range Interpretation Code Description Data Stephanie rce(s) Supporting Document(s) Nursing Note [facility] CQKTAx2fYsUOQmTc98/USGyfKURke4DaZBljOOc6CVdxKFHmA3KrKHV8cM9tDTJ6QGzBTyAcXaQfSSPw lbm [file] ID Date Data Source [id number] 05/21/2021 07:56:28 PM EST [facility] Name Value Range Interpretation Code Description Data Stephanie rce(s) Supporting Document(s) Nursing Note [facility] CHMQYy9vYxKXVjDp06/SPMwrJMRom0EvXPyfZTa6YHdvEMTlD1XoKHY7hB2oGOP4FOaOGrLcUwRnAKPm lbm [file] CuFBHeFcElKK1NFo4YRwA4BYU8kOBhOz5WZcC9IHkEVsGtNL5YHTa= ID Date Data Source [id number] 05/21/2021 04:35:30 PM EST [facility] Name Value Range Interpretation Code Description Data Stephanie rce(s) Supporting Document(s) ED Provider Notes [facility] BYKDRe6fDaHEYqCw40/OGDngIBSov1SmEAfhOBf9RLveHZZwE9RdZHH4uX6oOUD1HLyUEfHyTrKaBMBs lbm [file] MAJOR ACCOUNT MANAGER/LbPJEqHy/Fk+oiMQ/xMm0b0V2rlmKVXEbOz+Kdpue59DrNaVli9XGxzU6DSgNVDz5legMXHST5D1X [file] Q9MvJ8L6XpZsQrYS9GBi2HVtS8FIC0fUIkIv8CGjM9BETBEsHeYE4ZNNj= ID Date Data Source [id number] 05/21/2021 04:07:35 PM EST [facility] Name Value Range Interpretation Code Description Data Stephanie rce(s) Supporting Document(s) ED Triage Notes [facility] KLNNHe0uNoIFImCz94/INXjiHKZte4ArDWbtTKl3KLvuJSCmG4PiGOY3yF1nNTN0TIpZZpGnAuUsMNKz lbm [file] AgICAgICAgICAgICAgICAgICAgICAgICAgICAgICAg ICAgICAgICAgICAgICAgICAgICAgICANCiAgICAgICAgICAgICAgICAgICAgICAgICAgICAgICAgICAg ICAgICAgICAgICAgICAgICAgICAgICAgICAgICAgICAgICAgICAgICAgICAgICAgICAgICAgICAgICAg ICAgICANCiAgICAgICAgICAgICAgICAgICAgICAgIC AgICAgICAgICAgICAgICAgICAgICAgICAgICAgICAgICAgICAgICAgICAgICAgICAgICAgICAgICAgIC AgICAgICAgICAgICAgICANCiAgICAgICAgICAgICAgICAgICAgICAgICAgICAgICAgICAgICAgICAgIC AgICAgICAgICAgICAgICAgICAgICAgICAgICAgICAg ICAgICAgICAgICAgICAgICAgICAgICAgICANCiAgICAgICAgICAgICAgICAgICAgICAgICAgICAgICAg ICAgICAgICAgICAgICAgICAgICAgICAgICAgICAgICAgICAgICAgICAgICAgICAgICAgICAgICAgICAg ICAgICAgICANCiAgICAgICAgICAgICAgICAgICAgIC AgICAgICAgICAgICAgICAgICAgICAgICAgICAgICAgICAgICAgICAgICAgICAgICAgICAgICAgICAgIC AgICAgICAgICAgICAgICAgICANCiAgICAgICAgICAgICAgICAgICAgICAgICAgICAgICAgICAgICAgIC AgICAgICAgICAgICAgICAgICAgICAgICAgICAgICAg ICAgICAgICAgICAgICAgICAgICAgICAgICAgICANCiAgICAgICAgICAgICAgICAgICAgICAgICAgICAg ICAgICAgICAgICAgICAgICAgICAgICAgICAgICAgICAgICAgICAgICAgICAgICAgICAgICAgICAgICAg ICAgICAgICAgICANCiAgICAgICAgICAgICAgICAgIC AgICAgICAgICAgICAgICAgICAgICAgICAgICAgICAgICAgICAgICAgICAgICAgICAgICAgICAgICAgIC AgICAgICAgICAgICAgICAgICAgICANCiAgICAgICAgICAgICAgICAgICAgICAgICAgICAgICAgICAgIC AgICAgICAgICAgICAgICAgICAgICAgICAgICAgICAg ICAgICAgICAgICAgICAgICAgICAgICAgICAgICAgICANCjw/eSQzW1wweIMhmqU3Y8jtUy0NWe5ITQ0t u9MjVSIaCTlsxuIsCavAUpMlXCOpGblYXto6GTgzBA5IcDPdE9SwX7SsDDydOS8PNROzHMVvyYAlQYTv KMJjItJ0PULiOKbwUP4KwYSxOCoiYCWdUQIbMK5KUW MzR572hfZuVQ8TBg2GLdGiXT4nbq4TXAssVLEnPiqCMly7HTtyPW8LuOZnhVNmEMUeAMNJUjWtT1phg1 QzINbpTEYQCTiwXM9Zy9CoxEGoULz+Ca0EWB5ui1AcGVlkERKkRZ0qwt0HKVpDDmIxH9GzzUomHCCTEV OajPVhXDDYe5IxygAblTRQkbCoNNfhEgIDoAIkJLqa HWBbSVGPVEN9DAZkQdOgHjUiNrYeTYH0JGEfYX2jRQzeXF9IJEF0VXryXUDpOQAxZ4aYWkIaEAujDRNw pGnbNP1SJvNuH3WmsaDcnKRkOmKaEODYTp3+ARcadfSyHmoQTcS1UGEys8FuRRa9JU0QTKZhFQmpEI1O XRKijE0zZPvbPG5ZTiJzYFCvDBPWLgQjQ88zxXJeAB h3Z4XtYpDbHSBmFwrzIXLtVEooCjQtQDCpYpLyWXqpCR5+ID4+VGrbHN0OWFdujrMiEGGbHf9EYQAaDD OzUZ4mACGeKSGaK4W2kMglRHCHInEfP5atriwaOQ7uDDVxR393rSsenaOqNFH3YOPtAf8QFOMqQNR4VD XhcWXfYSWpQGNBDCkcUH7JfAUuYDI8lQ4zTIkkBSSs KXKzV3rHAiXutKlkTD40jCmstiJsgFVmZXc+Kj4RCZ9ra8DxVRl8cwUyPCtcTTYrCBopDIVuHKWaUPQz MYZ1KBP3WBKQAnEzQYFzNHKcNQirGKFgCADgtt1LHHXjLQTkNDQwUkCfRPIqMJSeBLzcCXFeSWB0DWP1 BOFmGQRsZF2ZDoBnRXPtKSQjHYavAZGfGEFkaj0LXO MaUBQnOEQ9JiQkTDDeVUFqKMyeXFBxKVIbGeU5FQHkOTMwUX3DNqWaFVGgWKHgITJaRJEuBWPfpt0VUW LjJLEoPkXdExGfHQMlOMZsDCtrAKGyMWQwSeIgPVSgZYWtKH4TKiXwTMRfDIC9YyOxOCOxBEEtoz7YGW PtQKWqCmy7PeBwWKZvVQWbYSveUMUrDGEnBJJ8ASXf FVDvUW1YUeUlVMFaMJM0BLomDRWcAKFktl9PCQWhSKHaIFS9BDMtECKaGYPnSYelIQPlFTP8QvisTHDk KHUmIO7OHkRpPCCuLBR5JQRvJPNvDXUhha8OYSGsVIGqTaY6PmKzERWmGQVbFUhyYENjZHU6UyM7UFHg EAVaBF5ARcXjZIUwNCtxClwxICRaRMGivn3QdBSseG qzqj2MILvARj9JrNhhVBMiZBtiHj4fpIObXPQlBAMHPw5IbcMrOUWbUZYPCHefYZYuTAVwAHBhUmPoZu LhHnsmGMzzP1XbCMDvIiShWMZ6YRAwHpW6CiCuNLWnKzXhCnGgTSXsDMM1TvH1PVVsYkImGkQ1ZNL+IF 0gDQo+Ed5Gr1IfxtP8leJnUZd6EnPrKVknRKMATv3C ID Date Data Source [id number] 05/20/2021 07:52:00 PM EST [facility] Name Value Range Interpretation Code Description Data Stephanie rce(s) Supporting Document(s) SARS coronavirus 2 RNA [Presence] in Res piratory specimen by CORDELL with probe detection NEGATIVE [facility] This lab was ordered by [facility] a nd reported by [facility]. ID Date Data Source [id number] 05/17/2021 02:13:00 PM EDT [facility] Name Value Range Interpretation Code Description Data Stephanie rce(s) Supporting Document(s) SARS coronavirus 2 RNA [Presence] in Res piratory specimen by CORDELL with probe detection NEGATIVE [facility] This lab was ordered by [facility] a nd reported by [facility]. ID Date Data Source [id number] 05/15/2021 09:57:00 AM EDT [facility] [address] [address] NAME: YARELI HATCH#: [id number] PHYSICIAN: DYLAN LOPEZ #: [id number] ADM. DATE: 05/13/21PATIENT : 00 DISCH. DATE: [50}DISCHARGE SUMMARYMHU discharge planNicotine Replacement TherapySmoking Status Current some day smokeriStopEND ENDDICT: 05/15/21956 Electronically SignedTRANS:05/15/21956 DYLAN RIBEIROTRANS BY:DATE SIGNED:05/15/21TIME SIGNED: 57REPORT COPY TO: Name Value Range Interpretation Code Description Data Stephanie rce(s) Supporting Document(s) ID Date Data Source [id number] 05/15/2021 09:25:00 AM EDT [address] DISCHARGE SUMMARYPATIENT NAME: YARELI HATCH MR#: [id number] PHYSICIAN: DYLAN RIBEIROAUTHOR: Dylan Aquino DATE: 05/13/21 #: 3RDDISCHARGE DATE:FspyyyaQawjrvjdhlmxcr74-swoa-nis single white femaleChief Complaint"I had a suicidal thought due to the fact that I lost my cousin"Reason for AdmissionSuicidal ideations with 2 plan; jumping off a bridge or drinking handsanitizer. She also has increased depression and impulsive behaviorsHistory of Presenting Nzmdkrl71-fgsk-mxl female was brought to the emergency department by [facility] with complaints of suicidal ideations with a plan to jump in front of amoving vehicle or drinking and regional rehabilitation director. Patient did admit upon arrival tot emergency department that she did attempt to drink hand regional rehabilitation director but wasunsuccessful due to staff interventio n at her living facility, [facility]. Uponarrival to the emergency department patient [...] Patient is a resident at [facility] and is on an AOT.Patient met [...] has a therapy appointment thiscoming Wednesday with Tmay. It was brought to the patient's attention [...] disorder, depression, and schizoaffective disorder. Patientcurrently attends [facility] and sees Yamileth for a therapist.Last [...] who lives in a supportive housing facility, [facility] is on an AOT. Patient never graduated [...] second degree andcharges of disorderly conductHospital CourseHospital Jewivu39-udpa-uan female was admitted involuntarily to mental health [...] admitted to getting upset at [facility], because she was [...] cleared in [facility] emergency [facility] after reviewing her labs and that again was clearedmedically by the hospitalist to receive psychiatric care in an inpatientpsychiatric setting. At no point during the course of her admission to thepatient experience any new medical complaints or develop any new medicalconditions. At no point during the course of her admission did she have anyphysical or medical complaints.Prior to discharge the [facility] team, her intensive case specialist, staff from [facility],Lorraine her AOT coordinator, members from her treatment team at [facility] all joined a video conference to decide the best course oftreatment for the patient as well as take Marilu's request intoconsideration. All parties involved in the meeting decided that it would be agood try for her to go and live with her friend Aroldo, who lives in [place],and to have her services transferred to [facility] as this has been herrequest. It is decided that patient will [facility] her belongings and sign the paperwork necessary todischarge her from [facility] and staff from [facility] will drive her to her friend Celina in [place]. Lorraine, will transfer all the necessary paperwork andarrange for her services to be completed in [place]. Cata, the treatmentcoordinator, is going to be in contact with her outpatient mental healthproviders in [place] to make the proper arrangements for transfer [...] is being [facility] emergency departmentMusculoskeletalMuscle Strength & Tone normalGait normalStation normalMental Status [...] rce(s) Supporting Document(s) ID Date Data Source [id number] 05/14/2021 09:46:00 AM EDT [address] PSYCHIATRIC ASSESSMENTPATIENT NAME: YARELI HATCH MR#: [id number] PHYSICIAN: DYLAN RIBEIROAUTHOR: Dylan Aquino DATE: 05/13/21 RM#: [id number]-ahcr-osn single white femaleChief Complaint"I had a suicidal thought due to the fact that I lost my cousin"Reason for AdmissionSuicidal ideations with 2 plan; jumping off a bridge or drinking handsanitizer. She also has increased depression and impulsive behaviorsHistory of Presenting Mqgvakj79-axoz-uqy female was brought to the emergency department by [facility] with complaints of suicidal ideations with a plan to jump in front of amoving vehicle or drinking and regional rehabilitation director. Patient did admit upon arrival tot emergency department that she did attempt to drink hand regional rehabilitation director but wasunsuccessful due to staff intervention at her living facility, [facility]. Uponarrival to the emergency department patient [...] Patient is a resident at [facility] and is on an AOT.Patient met [...] [facility] she stated "I do [...] disorder, depression, and schizoaffective disorder. Patientcurrently attends [facility] and sees Yamileth for a therapist.Last [...] [facility]. Patient never [...] (5.0 - 8.0) 7.0 05/13 155Ur Specific Borden (1.010 - 1.025) 1.022 05/13 015Urine Protein [...] 05/13 155 Urine Glucose (NEGATIVE) Negative 05/13 [id number]/02 2349 BLOOD: Blood Culture - CANCancelled: Cancelled [...] to have her ownpersonal clothing. Cata, the college scouting coordinator, will reach out to [facility] forcollateral information as well as Lorraine [...] shewill be discharged back to [facility].Assessment/PlanDiagnosis1. Major depressive disorderStatus Chronic2. Bipolar disorder3. [...] Name Value Range Interpretation Code Description Data [facility] rce(s) Supporting Document(s) ID Date Data Source [id number] 05/13/2021 09:59:00 AM EDT [facility] Name Value Range Interpretation Code Description Data [facility] rce(s) Supporting Document(s) LCOVID-19, CORDELL NEGATIVE [facility] and reported by [facility]. ID Date Data Source [id number] 05/13/2021 10:56:00 AM EDT [facility] [place] Name Value Range Interpretation Code Description Data [facility] rce(s) Supporting Document(s) COVID-19, CORDELL NEGATIVE NEGATIVE N [facility] Methodology: Isothermal Nucleic Acid Amp [...] Emergency Use Authorization. ID Date Data Source [id number] 05/13/2021 02:58:00 AM EDT [facility] Name Value Range Interpretation Code Description Data [facility] Document(s) GLU 96 mg/dL 70-110 [facility] Patients taking Sulfasalazine may have f alsely depressedGlucose levels. Patients taking Sulfapyridine may havefalsely elevated Glucose levels. Patients should be drawnfor Glucose before the initial administration of eitherdrug. BUN 14 mg/dL 7-23 [facility] CRE 0.615 mg/dL 0.500-1.300 [facility] GFR > 60 mL/min [facility] CHLORIDE 109 mmol/L 99-110 [facility] NA 140 mmol/L 136-147 [facility] POTASSIUM 3.8 mmol/L 3.5-5.1 [facility] TCO2 25 mmol/L 20-33 [facility] ANION GAP 9.8 10.0-20.0 [facility] CA 9.3 mg/dL 8.3-10.7 [facility] ALKALINE PHOS 99 U/L 45-117 [facility] TP 7.3 g/dL 6.0-7.8 [facility] ALB 3.7 g/dL 3.5-5.0 [facility] ESRD Dialysis patient Albumin reference range: 2.9-4.4 g/dL GL 3.6 g/dL 2.3-3.5 H [facility] A/G 1.0 1.0-2.5 [facility] T. BILIRUBIN 0.3 mg/dL 0.1-1.1 [facility] The Dimension Lyman Total Bilirubin is n ot recommended forpatients undergoing treatment with eltrombopag (Promacta)due to the potential for falsely elevated results. ALTI 45 U/L 6-54 [facility] Patients taking Sulfasalazine and/or Sul fapyridine may havefalsely depressed ALT levels. Patients should be drawn forALT before the initial administration of either drug. AST 23 U/L 6-38 [facility] Patients taking Sulfasalazine and/or Sul fapyridine may havefalsely depressed AST levels. Patients should be drawn forAST before the initial administration of either drug. ID Date Data Source [id number] 05/13/2021 02:18:00 AM EDT [facility] [place] Name Value Range Interpretation Code Description Data Stephanie rce(s) Supporting Document(s) WBC 9.13 x10E3/uL 4.0-10.5 [facility] RBC 4.12 x10E6/uL 4.20-5.40 [facility] Hemoglobin 11.9 g/dL 12.0-16.0 [facility] Hematocrit 37.2 % 37.0-47.0 [facility] MCV 90.3 fL 81.0-99.0 [facility] MCH 28.9 pg 27.0-31.0 [facility] MCHC 32.0 g/dL 32.7-35.6 [facility] RDW 12.9 % 11.5-14.0 [facility] Platelet count 241 x10E3/uL 150-450 N [facility] ital MPV 9.5 fl 6.9-9.5 [facility] Neutrophils 63.3 % 34-64 [facility] Lymphocytes 27.4 % 25-45 [facility] Monocytes 7.7 % 1.7-10.6 [facility] Eosinophils 1.2 % 0.4-7.0 [facility] Basophils 0.2 % 0.1-2.0 [facility] Imm. Gran. 0.2 % 0.1-2.0 [facility] Abs. Neutro. 5.78 x10E3/uL 1.2-7.6 [facility] [place] Abs. Lymph. 2.50 x10E3/uL 1.0-3.5 [facility] Abs. [place]. 0.70 x10E3/uL 0.1-1.0 [facility] Abs. Eosin. 0.11 x10E3/uL 0.1-0.7 [facility] Abs. Baso. 0.02 x10E3/uL 0.0-0.1 [facility] Abs. Imm. Gran. 0.02 x10E3/uL 0.0-0.1 [facility] spital ANRBC% 0 % 0 [facility] ID Date Data Source [id number] 05/13/2021 02:58:00 AM EDT [facility] [place] Name Value Range Interpretation Code Description Data Stephanie rce(s) Supporting Document(s) HCG QUAL SERUM Negative Negative N [facility] ID Date Data Source [id number] 05/13/2021 02:58:00 AM EDT [facility] [place] Name Value Range Interpretation Code Description Data Stephanie rce(s) Supporting Document(s) ETOH 0.004 g/dL NONE DETECTED H [facility] ID Date Data Source [id number] 05/13/2021 02:58:00 AM EDT [facility] [place] Name Value Range Interpretation Code Description Data Stephanie rce(s) Supporting Document(s) ACETAMINOPHEN < 2.0 ug/mL 0-30 [facility] ID Date Data Source [id number] 05/13/2021 02:58:00 AM EDT [facility] [place] Name Value Range Interpretation Code Description Data Stephanie rce(s) Supporting Document(s) SALICYLATE < 1.7 mg/dL 0.0-20.0 [facility] ID Date Data Source [id number] 05/13/2021 02:41:00 AM EDT [facility] [place] Name Value Range Interpretation Code Description Data Stephanie rce(s) Supporting Document(s) PCP VISTA NEG NEGATIVE [facility] MINIMUM LEVEL OF DETECTION IS 25 ng/ml BENZODIAZEPINES POS NEGATIVE [place] [facility] POSITIVE RESULTS UNCONFIRMEDMINIMUM LEVE L OF DETECTION IS 200 ng/ml COCAINE VISTA NEG NEGATIVE [facility] MINIMUM LEVEL OF DETECTION IS 300 ng/ml AMPHETAMINES NEG NEGATIVE [facility] MINIMUM LEVEL OF DETECTION IS 1000 ng/ml BARBITURATES NEG NEGATIVE [facility] CUTOFF CONCENTRATION IS 200 ng/ml CANNABINOIDS NEG NEGATIVE N [facility] CUTOFF CONCENTRATION IS 50 ng/ml METHADONE VISTA NEG NEGATIVE [facility] MINIMUM LEVEL OF DETECTION IS 300 ng/ml OPIATE VISTA NEG NEGATIVE [facility] MINIMUM DETECTION LEVEL IS 300 ng/ml ID Date Data Source [id number] 05/13/2021 02:30:00 AM EDT [facility] [place] Name Value Range Interpretation Code Description Data Stephanie rce(s) Supporting Document(s) URINE COLOR Yellow [facility] UAPR Turbid [facility] UGLU Negative NEGATIVE [facility] URINE BILIRUBIN Negative NEGATIVE [facility] UKET Negative NEGATIVE [facility] USG 1.022 1.010-1.025 [facility] UBLO Negative NEGATIVE [facility] UpH 7.0 5.0-8.0 [facility] UPRO Negative Negative [facility] UUB 1.0 mg/dL 0.2-1.0 [facility] UNIT Negative Negative [facility] ULEU Trace Negative [facility] ID Date Data Source [id number] 05/13/2021 02:30:00 AM EDT [facility] Name Value Range Interpretation Code Description Data Stephanie rce(s) Supporting Document(s) URINE RBC 0-2 RBCs/HPF NONE SEEN [facility] URINE WBC 0-2 WBCs/HPF NONE SEEN [facility] URINE BACTERIA Few [facility] EPI. Moderate NONE SEEN [facility] URINE CRYSTAL MODERATE AMORPHOUS NONE SEEN [facility] ID Date Data Source [id number] 05/14/2021 01:39:00 AM EDT [facility] [place] Physician DocumentationClaxton-Naveen Hinkle edical CenterName: Yareli DuvallAge: 20 yrsSex: FemaleDOB: 2000MRN: [id number] Date: 05/13/2021Time: 01:43Account#: [id number] 3Private MD: None, noneED Physician Rebekah Groverposition [...] was also said to haveattemptedto consume hand regional rehabilitation director and active self- harm as well. Patient well-known toED stafffor multiple attempts.Historical:- Allergies: Haldol; Risperdal;- Home Meds:1. aripiprazole 400 mg intramuscular suspension,extended release syringe 400 yogkkjp29 days2. ibuprofen 400 mg Oral tablet 1 [...] during both of theseepisodes..05/201:55 Order name: Acetaminophen Fynpigu22/0201:55 Order name: CBC with :55 Order name: CMPf:55 Order name: COVID-19 PROFILE+LAB:55 Order name: BJDQun11:55 Order name: Lttcusxll64/0201:55 Order name: Salicylate Ahyhcgg88/0201:55 Order name: Serum HCG Bwsnancplnbve46/0201:55 Order name: Triage - Drug Pnixmeai04/0201:55 Order name: UAf:55 Order name: Diet - [...] vastus lateralis;09:54 Follow up: Response: No adverse hxfgoxmguvq66:46 Drug: LORazepam 2 mg [lorazepam 2 mg/mL injection solution (1 mL)] Route:IM; Site: tlmleft vastus lateralis;09:54 Follow up: Response: No adverse tbkjceexnwx98:47 Drug: Geodon 20 mg Route: IM; Site: right deltoid;ef109:54 Follow up: Response: No adverse nnjucwuckhu82:35 Drug: Geodon 20 mg [ziprasidone 20 mg/mL (final concentration)intramuscular solution ml4(1 mL)] Route: IM; Site: right gluteus;18:35 Drug: LORazepam 2 mg [lorazepam 2 mg/mL injection solution (1 mL)] Route:IM; Site: zi1lxute deltoid;18:35 Drug: diphenhydrAMINE 50 mg [diphenhydramine 50 mg/mL injection solution(1 mL)] Route: ml4IM; Site: left deltoid;21:47 Not Given (Patient Refused): Topiramate 75 mg PO fhesae578:48 Not Given (Patient Refused): Loratadine 10 mg PO :48 Not Given (Patient Refused): Montelukast 10 mg PO greuhj701:48 Not Given (Patient Refused): Propranolol 10 mg PO bmojnm614:48 Not Given (Patient Refused): sertraline 50 mg PO :55 CANCELLED (Physician Discretion): Zosyn 3.375 grams IVPB jwqfel08/0301:20 Drug: Prazosin 2 mg [prazosin 1 mg capsule (2 caps)] Route: PO;jw501:20 Drug: Propranolol 10 mg [propranolol 10 mg tablet (1 tabs)] Route: PO;ii0Rkzsruqcjc:Dispatcher [employer] Magaly Manjarrez RN RN tlmHNils mark MD MD qu9KffbcFortunato humphrey RN RN qb3ZkgawttcAmi Medrano RN RN lx6CtzcmukZeeshan garcias MD MD brWest, Loida RN RN fwLyunc health nash, Danae RN RN ws3Jufkkujmgiv: (The following items were deleted from the chart)05/223:55 23:49 Zosyn 3.375 grams IVPB once ordered. brbr23:56 23:49 Call Lab ordered. br br Name Value Range Interpretation Code Description Data Stephanie rce(s) Supporting Document(s) ID Date Data Source [id number] 05/14/2021 01:39:00 AM EDT [facility] [place] [facility]Cl[facility] Tootie terName: Yareli DuvallAge: 20 yrsSex: FemaleDOB: 2000MRN: [id number] Date: 05/13/2021Time: 01:43Account#: [id number] 3Polga SMITH: None, noneDiagnosis: Schizophrenia, unspecifiedPresentation:05/201:45 Presenting complaint: Brought in by [facility] Police officers #[id number], #[id number] forcomplaints of ktsuicidal ideation with plan to jump in front of a moving vehicle, alsoattempted todrink hand regional rehabilitation director but was unsuccessful.02:26 International Travel Fever No. Communicable Disease Screen: Negative forfever>/= 100 fwdegrees Fahrenheit. Communicable disease screen is negative. (-) rash orunusual skinlesion (-) travel/contact with traveler (-) respiratory symptoms.Communication.Communication Speaks Nigerien? Yes, is preferred language.02:26 Acuity: Triage 2fw02:26 [...] of amount of people live, such as senior living, family care, alf, etc?yes. Haveyou traveled to a location with widespread or ongoing COVID-19 community spreadoroutsnorth [facility]? no Have you traveled internationally or [...] 400 mg intramuscular suspension,extended release syringe 400 ytxfium14 days2. ibuprofen 400 mg Oral tablet 1 [...] apparent distress at this time. Nochanges from vm1eacrthioaw documented assessment.05/300:38 Reassessment: Patient appears in no apparent distress at this time. Nochanges from hg7tvgdputxlb documented assessment.Psychosocial:05/219:29 SAFE Act Report Not Completed. [...] Ptdenies selfharm. Pt [facility]. [facility]. Pt has a diagnosis [...] 2020 overdose Other: BPD, ADHD.MentalHealth Admissions: 05/06/21, [facility] Current Outpatient Mental HealthServices:Therapist / Agency: [...] notified ofpatients status at 23:13, Mental Health GENETICS TEACHER made aware of pt status at 22:50,JOSE LUIS Jo. Disposition: Medically cleared for disposition by Dr Grover. PsychiatricConsultis performed by phone with Dr Dylan Ribeiro NP The patient is admitted to [facility].23:15 Legal Status: Patient's legal status will be Emergency: 9.39. Commitmentpapers are nhcompleted. Pt is provided with a copy of her legal status and rights. DSM-V DXAxis Idiagnosis: Schizoaffective D/O Belcher II diagnosis: Deferred Belcher III diagnosis:None.Belcher IV diagnosis: poo impulse control. Poor coping skills. InsurancePre-Certification: Not Required. [facility] Admission Criteria: The patient isexperiencingsuicidal ideation. The patient requires continuous observation and/or controltoprotect self, others or property. The patient's care requires a multi-modaltreatmentplan under close supervision and coordination due to the complexity andseverity of thepatient's symptoms. The patient requires administration and monitoring ofpsychoactivemedications by skilled medical providers due to the side effects of thepsychoactivemedications or significant dosage adjustments. Awaiting transfer to [facility].Transition ofcare to Pt will be escorted by PSA and MHU RN. The patient is not a servicemember ormilitary dependent. [place] Suicide Severity Rating Scale: Suicidal IdeationRating 5;Intensity of Ideations Rating 25; Suicidal Behavior Rating 0.Psych:02:00 Subjective: Patient's mood is sad, Delusions are denied, Hallucinationsare denied ng0Nusffa thoughts of suicide. Plan for suicide is [...] Triage completed.fw07:28 Appears to be sleeping.tlm07:28 Psychosocial Bindery Helper.tlm07:28 Sitter at bedside. Diet tray given.tlm07:50 Appears agitated. attempting multiple times to leave through the doors,security tlmofficer hayley is able to redirect her i have offered her something to take edgeradha, ambrosio acknowledge keno writer/runner.07:51 No Physician assisted procedures completed.tlm08:46 Notified ED [...] No apparent distress. Resting quietly.jw500:38 Sitter at bedside.pj1Unxcpyhyrcct Medications:05/208:45 Drug: diphenhydrAMINE 50 mg [diphenhydramine 50 mg/mL injection solution(1 mL)] Route: tlmIM; Site: left vastus lateralis;09:54 Follow up: Response: No adverse nfqlihvpiiq66:46 Drug: LORazepam 2 mg [lorazepam 2 mg/ mL injection solution (1 mL)] Route:IM; Site: tlmleft vastus lateralis;09:54 Follow up: Response: No adverse kesmpknsdpm27:47 Drug: Geodon 20 mg Route: IM; Site: right deltoid;ef109:54 Follow up: Response: No adverse rmmcdnbojfe42:35 Drug: Geodon 20 mg [ziprasidone 20 mg/mL (final concentration)intramuscular solution ml4(1 mL)] Route: IM; Site: right gluteus;18:35 Drug: LORazepam 2 mg [lorazepam 2 mg/mL injection solution (1 mL)] Route:IM; Site: qk5xyjhe deltoid;18:35 Drug: diphenhydrAMINE 50 mg [diphenhydramine 50 mg/mL injection solution(1 mL)] Route: ml4IM; Site: left deltoid;21:47 Not Given (Patient Refused): Topiramate 75 mg PO kpxuul544:48 Not Given (Patient Refused): Loratadine 10 mg PO efcjoc431:48 Not Given (Patient Refused): Montelukast 10 mg PO :48 Not Given (Patient Refused): Propranolol 10 mg PO jmbxyg982:48 Not Given (Patient Refused): sertraline 50 mg PO psdyms614:55 CANCELLED (Physician Discretion): Zosyn 3.375 grams IVPB /0301:20 Drug: Prazosin 2 mg [prazosin 1 mg capsule (2 caps)] Route: PO;jw501:20 Drug: Propranolol 10 mg [propranolol 10 mg tablet (1 tabs)] Route: PO;la3Obhiqoi:05/223:47 Decision to Hospitalize by Provider.br0301:20 Disposition: Admitted to Psych with chart.bi6Kndlnvidl: unchangedInstructed on need for admit, Demonstrated understanding of instructions.Discharge Assessment: Patient verbalized understanding of dispositioninstructions.Patient has no functional deficits.01:39 Patient left the ED.tj5Hgeubujsmz:Magaly Gray RN RN tlmTerwilliger, Katherine, RN RN ktWhite, Jason, RN RN rp7LfgljusmAmi Medrano RN RN ef1Roberts, Brandon, MD MD brWest, JOSE LUIS Mariscal RN, Nicole nhLynch, McKenzie, RN RN mq9Pludjopgnfd: (The following items were deleted from the chart)05/207:28 07:28 Awaiting disposition, twvook86:17 23:13 Disposition: Medically cleared for disposition by Dr Grover.Psychiatric Consult [facility]11/0300:37 00:37 Primary Nurse role handed off by Danae Ordoñez, JOSE LUIS pi0qe202:37 00:37 Fortunato Mark, RN is Primary Nurse. ug4so193:25 05/13 01:00 Subjective: Patient's mood is sad, Delusions are denied,Hallucinations are br6oblcno Having thoughts of suicide. Plan for suicide is see ntriage jw511/0301:25 05/13 01:00 Objective: Patient is cooperative, Speech is soft, Affect isflat, jw5 jw511/0301:25 05/13 01:00 Interventions: Removed personal items and placed in bag.Patient placed in bz5xgweukbo gown. Searched person for dangerous items. Urine collected and sentfor urinedrug test. Observation Level Level 3 Sitter needed. Provider notified. Nando Charge nurse notified. Fortunato Mark RN Level 3 order placed. jw5 Name Value Range Interpretation Code Description Data Stephanie rce(s) Supporting Document(s) ID Date Data Source [id number] 05/08/2021 12:28:00 PM EDT [facility] [address] [address]IADLGTD NAME: YARELI HATCH#: [id number] PHYSICIAN: HUBER MEDINA #: [id number] ADM. DATE: 05/06/21PATIENT : 00 DISCH. DATE: [50}DISCHARGE SUMMARYMHU discharge planNicotine Replacement TherapySmoking Status Current some day smokeriStopEND ENDDICT: 05/08/21 1228 Electronically SignedTRANS:05/08/21 1228 DYLAN RIBEIROTRANS BY:DATE SIGNED:05/08/21TIME SIGNED: 1228REPORT COPY TO: Name Value Range Interpretation Code Description Data Stephanie rce(s) Supporting Document(s) ID Date Data Source [id number] 05/08/2021 12:14:00 PM EDT [facility] DISCHARGE SUMMARYPATIENT NAME: YARELI HATCH MR#: [id number] PHYSICIAN: BROOKLYN ONEILL MDAUTHOR: Dylan Aquino DATE: 05/06/21 RM#: [id number] DATE:JjubcvtQqxngopvlaieok20-cahv-gvj single white femaleChief Complaint"I was impulsive and did something stupid"Reason for AdmissionUnsafe behaviors with a history of poor impulse control and suicidal ideations.Patient was unable to contract for safety prior to admissionHistory of Presenting Kizlvet94-lotn-jfm female who was admitted to mental health on an involuntary statusafter ingesting a bottle of shampoo. Patient was brought here by police aftershe eloped numerous times from [facility]. [facility] to [facility] patient stated she was discharged [...] to her that she is on an [facility] list [place] as her place of residence. [...] lives in a supportive housing facility,[facility]. Patient was never graduated from high [...] second degree and chargesof disorderly conductHospital CourseHospital Itpzxb83-itzj-yrz female was admitted to mental health on [...] planwas worked out with Madelin Michel the college scouting coordinator, and [facility]. At time of discharge patient continues [...] up to the staff at [facility] shefeels this would be an effective [...] confirmed by the staff from [facility].Patient's Discharge ConditionVital SignsVital Signs-LastResult Date TimeB/P 132/78 05/08 0822Pulse Ox 99 05/07 1234Temp 97.7 05/07 1234Pulse 63 05/07 1234Resp 16 05/07 1234Patient's Discharge ConditionDischarge Date 05/08/21Discharge Conditon stableDischarge DispositionPatient is to be discharged back [facility]aminationMusculoskeletalMuscle Strength & Tone normalGait normalStation normalMental [...] rce(s) Supporting Document(s) ID Date Data Source [id number] 05/07/2021 05:08:00 PM EDT [address] [address]BZIHXE HEALTH HISTORY AND PHYSICALPATIENT NAME: YARELI HATCH MR#: [id number] PHYSICIAN: BROOKLYN ONEILL, MDAUTHOR: Ericka Dean MD DATE: 05/06/21 RM#: [id number] Complaint/Admit ReasonIngested shampoo/conditioner to end her lifeHistory of Presenting IllnessHISTORY IS LIMITED THE PT REFUSED TO BE SEEN BY THE MEDICINE YWOHCVK74 yo F who presents to the hospital with police because she ingested shampooand conditoner in an effort to end her life. Pt was recently discharged fromPSYCHIATRIC on 05/05/21 and told staff she did [...] seen by the medicine serviceExamVital SignsVital Signs-24 HRS05/06303248 1072 0828 1234Temp 97.5 97.7Pulse 77 63Resp 16 16B/P 128/83 123/78 136/84 115/75B/P MeanPulse Ox 96 99O2 DeliveryO2 Flow TlziOnK6Xlxt ReviewLaboratory DataRecent Labs-48 hours05/06391860 0051ChemistrySodium (136 - 147 mmol/L) 139Potassium (3.5 [...] TurbidUrine pH (5.0 - 8.0) 8.0Ur Specific Borden (1.010 - 1.025) 1.022Urine Protein (Negative) TraceUrine [...] psych serviceDATE SIGNED: 05/07/21 Electronically SignedTIME SIGNED: 9686 ERICKA DEAN MD Name Value Range Interpretation Code Description Data Stephanie rce(s) Supporting Document(s) ID Date Data Source [id number] 05/07/2021 12:49:00 PM EDT [address] PSYCHIATRIC ASSESSMENTPATIENT NAME: YARELI HATCH MR#: [id number] PHYSICIAN: BROOKLYN ONEILL MDAUTHOR: Dylan Aquino DATE: 05/06/21 RM#: [id number]-dvro-ate single white femaleChief Complaint"I was impulsive and did something stupid"Reason for AdmissionUnsafe behaviors with a history of poor impulse control and suicidal ideations.Patient was unable to contract for safety prior to admissionHistory of Presenting Xlpzrtb45-cmjs-smb female who was admitted to mental health on an involuntary statusafter ingesting a bottle of shampoo. Patient was brought here by police aftershe eloped numerous times from [facility]. Upon arrival to [facility] patient stated she was discharged [...] to her that she is [facility] as her place of [...] lives in a supportive housing facility,[facility]. Patient was never graduated from high [...] pH (5.0 - 8.0) 8.0 05/06 Specific Borden (1.010 - 1.025) 1.022 05/06 Protein (Negative) [...] Patient will be monitored by staff in [facility] the nurses station for the [...] medicationuse and the medications efficacy. Madelin, the college scouting coordinator will be incontact with [place] and [...] rce(s) Supporting Document(s) ID Date Data Source [id number] 05/06/2021 01:31:00 AM EDT [facility] [place] Name Value Range Interpretation Code Description Data Stephanie rce(s) Supporting Document(s) ACETAMINOPHEN < 2.0 ug/mL 0-30 [facility] Date Data Source [id number] 05/06/2021 01:31:00 AM EDT [facility] [place] Name Value Range Interpretation Code Description Data Stephanie rce(s) Supporting Document(s) SALICYLATE < 1.7 mg/dL 0.0-20.0 [facility] ID Date Data Source [id number] 05/06/2021 01:31:00 AM EDT [facility] [place] Name Value Range Interpretation Code Description Data Stephanie rce(s) Supporting Document(s) ETOH NONE DETECTED [facility] NONE DETECTED ID Date Data Source [id number] 05/06/2021 01:31:00 AM EDT [facility] [place] Name Value Range Interpretation Code Description Data Stephanie rce(s) Supporting Document(s) GLU 99 mg/dL 70-110 [facility] Patients taking Sulfasalazine may have f alsely depressedGlucose levels. Patients taking Sulfapyridine may havefalsely elevated Glucose levels. Patients should be drawnfor Glucose before the initial administration of eitherdrug. BUN 13 mg/dL 7-23 [facility] CRE 0.661 mg/dL 0.500-1.300 [facility] GFR > 60 mL/min [facility] CHLORIDE 109 mmol/L 99-110 [facility] NA 139 mmol/L 136-147 [facility] POTASSIUM 3.9 mmol/L 3.5-5.1 [facility] TCO2 25 mmol/L 20-33 [facility] ANION GAP 8.9 10.0-20.0 L [facility] CA 9.3 mg/dL 8.3-10.7 [facility] ALKALINE PHOS 110 U/L 45-117 [facility] TP 8.0 g/dL 6.0-7.8 H [facility] ALB 4.0 g/dL 3.5-5.0 [facility] ESRD Dialysis patient Albumin reference range: 2.9-4.4 g/dL GL 4.0 g/dL 2.3-3.5 H [facility] A/G 1.0 1.0-2.5 [facility] T. BILIRUBIN 0.4 mg/dL 0.1-1.1 [facility] The Dimension Lyman Total Bilirubin is n ot recommended forpatients undergoing treatment with eltrombopag (Promacta)due to the potential for falsely elevated results. ALTI 58 U/L 6-54 [facility] Patients taking Sulfasalazine and/or Sul fapyridine may havefalsely depressed ALT levels. Patients should be drawn forALT before the initial administration of either drug. AST 32 U/L 6-38 [facility] Patients taking Sulfasalazine and/or Sul fapyridine may havefalsely depressed AST levels. Patients should be drawn forAST before the initial administration of either drug. ID Date Data Source [id number] 05/06/2021 01:10:00 AM EDT [facility] [place] Name Value Range Interpretation Code Description Data Stephanie rce(s) Supporting Document(s) WBC 8.31 x10E3/uL 4.0-10.5 [facility] RBC 4.31 x10E6/uL 4.20-5.40 [facility] Hemoglobin 12.7 g/dL 12.0-16.0 [facility] Hematocrit 38.3 % 37.0-47.0 [facility] MCV 88.9 fL 81.0-99.0 [facility] MCH 29.5 pg 27.0-31.0 [facility] MCHC 33.2 g/dL 32.7-35.6 [facility] RDW 12.5 % 11.5-14.0 [facility] Platelet count 274 x10E3/uL 150-450 [facility] ital MPV 9.8 fl 6.9-9.5 [facility] Neutrophils 69.5 % 34-64 [facility] Lymphocytes 23.2 % 25-45 [facility] Monocytes 6.0 % 1.7-10.6 [facility] Eosinophils 0.5 % 0.4-7.0 [facility] Basophils 0.4 % 0.1-2.0 [facility] Imm. Gran. 0.4 % 0.1-2.0 [facility] Abs. Neutro. 5.78 x10E3/uL 1.2-7.6 [facility] [place] Abs. Lymph. 1.93 x10E3/uL 1.0-3.5 [facility] Abs. [place]. 0.50 x10E3/uL 0.1-1.0 N [facility] l Abs. Eosin. 0.04 x10E3/uL 0.1-0.7 [facility] Abs. Baso. 0.03 x10E3/uL 0.0-0.1 [facility] Abs. Imm. Gran. 0.03 x10E3/uL 0.0-0.1 N [facility] spital ANRBC% 0 % 0 [facility] ID Date Data Source [id number] 05/06/2021 12:41:00 AM EDT [facility] Name Value Range Interpretation Code Description Data Stephanie rce(s) Supporting Document(s) LCOVID-19, CORDELL NEGATIVE [facility] and reported by [facility]. ID Date Data Source [id number] 05/06/2021 01:27:00 AM EDT [facility] [place] Name Value Range Interpretation Code Description Data Stephanie rce(s) Supporting Document(s) PCP VISTA NEG NEGATIVE [facility] MINIMUM LEVEL OF DETECTION IS 25 ng/ml BENZODIAZEPINES POS NEGATIVE [place] [facility] POSITIVE RESULTS UNCONFIRMEDMINIMUM LEVE L OF DETECTION IS 200 ng/ml COCAINE VISTA NEG NEGATIVE [facility] MINIMUM LEVEL OF DETECTION IS 300 ng/ml AMPHETAMINES NEG NEGATIVE [facility] MINIMUM LEVEL OF DETECTION IS 1000 ng/ml BARBITURATES NEG NEGATIVE [facility] CUTOFF CONCENTRATION IS 200 ng/ml CANNABINOIDS NEG NEGATIVE [facility] CUTOFF CONCENTRATION IS 50 ng/ml METHADONE VISTA NEG NEGATIVE [facility] al MINIMUM LEVEL OF DETECTION IS 300 ng/ml OPIATE VISTA NEG NEGATIVE [facility] MINIMUM DETECTION LEVEL IS 300 ng/ml ID Date Data Source [id number] 05/06/2021 01:25:00 AM EDT [facility] [place] Name Value Range Interpretation Code Description Data Stephanie rce(s) Supporting Document(s) COVID-19, CORDELL NEGATIVE NEGATIVE [facility] Methodology: Isothermal Nucleic Acid Amp lification [...] Emergency Use Authorization. ID Date Data Source [id number] 05/06/2021 01:11:00 AM EDT [facility] [place] Name Value Range Interpretation Code Description Data Stephanie rce(s) Supporting Document(s) HCG QUAL URINE Negative Negative [facility] l ID Date Data Source [id number] 05/06/2021 01:11:00 AM EDT [facility] Name Value Range Interpretation Code Description Data Stephanie rce(s) Supporting Document(s) URINE COLOR Yellow [facility] UAPR Turbid [facility] UGLU Negative NEGATIVE [facility] URINE BILIRUBIN Negative NEGATIVE [facility] UKET Negative NEGATIVE [facility] USG 1.022 1.010-1.025 [facility] UBLO Negative NEGATIVE [facility] UpH 8.0 5.0-8.0 [facility] UPRO Trace Negative [facility] UUB 1.0 mg/dL 0.2-1.0 [facility] UNIT Negative Negative [facility] ULEU Negative Negative [facility] ID Date Data Source [id number] 05/06/2021 04:51:00 PM EDT [facility] [place] Physician DocumentationClaxSaud Hinkle edical CenterName: Yareli DuvallAge: 20 yrsSex: FemaleDOB: 2000MRN: [id number] Date: 05/06/2021Time: 00:32Account#: [id number] 5BPrivate MD:ED Physician Richie العليposition Summary:05/06/21 13:58Hospitalization [...] 400 mg intramuscular suspension,extended release syringe 400 ivccftu02 days2. ibuprofen 400 mg Oral tablet 1 [...] thoughts of suicide. Megestrol drinking shampooisattempt for viixgld40:44 Unable to obtain exam due to patient being uncooperative.Vital Signs:00:37 BP 137 / 84; Pulse 84; Resp 16; Temp 97.7; Pulse Ox 99% ; Weight 104.33kg; Height 5 tp2ft. 6 in. ; Pain 0/10;16:31 BP 122 / 83 (auto/); Pulse 77 MON; Resp 18; Pulse Ox 96% ;ef100:37 Body Mass Index 37.12 (104.33 kg, 167.64 cm)tp200:37 Pain Scale: Mowysbt1RJW:00:47 Patient medically screened.br06:44 Data reviewed: vital signs, nurses notes, EMS record, old medicalrecords, lab test brresult(s).11:37 ED course: Patient has refused to comply with staff, is verbally abusiveand sedisruptive, and is being physically restrained at this time. She has mg ofIM Geodon and will get 2 mg of IM Ativan..04/2600:38 Order name: Acetaminophen Level; Complete Time: 10:10yp268/0:32 Interpretation: Within normal limits.se04/2600:38 Order name: CBC with diff; Complete Time: 10:55wj755/0:32 Interpretation: Within normal limits.se04/2600:38 Order name: CMP; Complete Time: 10:32ge650/2610:33 Interpretation: Normal except: TP 8.0; ALTI 58.se0:38 Order name: COVID-19 PROFILE+LAB; Complete Time: 10:77yc1900:33 Interpretation: Within normal limits.se04/2600:38 Order name: ETOH; Complete Time: 10:09lc694/2610:33 Interpretation: Within normal limits.se0:38 Order name: Hubfsqdpw998/0:38 Order name: Salicylate Level; Complete Time: 10:10mg556/2610:33 Interpretation: Within normal limits.se0:38 Order name: Triage - Drug Screen; Complete Time: 10:62vb421/2610:33 Interpretation: Normal except: BENZODIAZEPINES POS.se0:38 Order name: UA; Complete Time: 10:76hn657/2610:33 Interpretation: Within normal limits.se2600:38 Order name: Urine HCG Qualitative; Complete Time: 10:34td032/2610:33 Interpretation: Within normal limits.:38 Order name: Diet - Mental Health Tray (call dietary); Complete Time:00:42 tp0:38 Order name: Belongings List; Complete Time: 13:47oo013/2600:38 Order name: Document Weight and Height for BMI; Complete Time: 00:46wm408:38 Order name: Mental Health Evaluation; Complete Time: 13:92qe835:38 Order name: Mental Health Level 3; Complete Time: 13:35sr943:38 Order name: VS q shift; Complete Time: 00:29vp9Pjygbviip Medications:09:23 Drug: Ondansetron 8 mg Route: PO;jl11:41 Fol low up: Response: Nausea is nywfxhsaafi947:29 Drug: Geodon 20 mg Route: IM; Site: left deltoid;ef113:48 Follow up: Response: Anxiety ylflbfjidpn937:38 Drug: LORazepam 2 mg Route: IM; Site: right vastus lateralis;ef113:48 Follow up: Response: Anxiety seegvddyjex1Opunhlyhcc:Dispatcher [employer] Kylie Fishman MD MD seHilborne, Erica RN RN so5LlNtdxzBertha Collier RN RN jlPutney, Taylor, RN RN lx1UrlmsnyZeeshan browne MD MD br Name Value Range Interpretation Code Description Data Stephanie rce(s) Supporting Document(s) ID Date Data Source [id number] 05/06/2021 04:51:00 PM EDT [facility] [place] Nurse's NotesClaxton-Naveen Medical Tootie terName: Yareli DuvallAge: 20 yrsSex: FemaleDOB: 2000MRN: [id number] Date: 05/06/2021Time: 00:32Account#: [id number] 5BPrivate SMITH:Diagnosis: Major depressive disorder, recurrent, unspecified;Borderlinepersonality disorderPresentation:04/2600:34 Presenting complaint: Patient states: discharged from mental health floor05/05/21. ib6Wzofv a bottle of shampoo. Went to [facility], police brought pthere. Ptstates she was [...] of amount of people live, such as senior living, familycare,alf, etc? no. Have you traveled to a location with widespread or ongoingCOVID-19community spread or outside of [facility]? no Have you traveled internationallyor hadcontact with someone that has traveled and has been ill in the past 3 weeks? noHaveyou received the COVID vaccine? No. Communicable Disease Screen: Negative forfever>/=100 degrees Fahrenheit. Communicable disease screen is negative. CommunicationSpeaksEnglish? Yes, is preferred language.00:34 Acuity: Triage 8to467:34 Acuity Assignment: Triage 8nz937:34 Method Of Arrival: Gzjpsrwp7Vxrdta Assessment:00:36 General: Appears in no apparent distress, Behavior is appropri ate forage, cooperative. rb0Dzxyzq Screening: (1)Signs/symptoms infection No. Pain: Denies pain. [...] 400 mg intramuscular suspension,extended release syringe 400 rorcpem73 days2. ibuprofen 400 mg Oral tablet 1 [...] threats or abuse. Denies injuries from another.Nutritional bg5nhqngylir: No deficits noted. Offer of HIV testing: patient was previouslyofferedscreening. Fall Risk None identified.Assessment:00:42 Reassessment: No changes from previously documented assessment.tp211:05 General: pt repeatedly walking out of unit to doorway. does not walk outand easily klpredirected back in. PSA aware.11:29 Reassessment: attempted to elope; uncooperative and attempting to assaultstaff; code el7wxslki called.11:39 Reassessment: screaming continuing to assault staff; placed in restrains.ef112:30 Reassessment: Patient states feeling better. Patient states symptoms haveimproved. klpreleased from restraints and walked to without incident.13:47 Reassessment: Patient appears in no apparent distress at this time.ah3Lczzubosbptv:09:59 SAFE Act Report Not Completed. Intervention: Observation Level 3. Mentalhealth consult nhis initiated at 09:59.10:46 Referral Information: Evaluation referral is generated by a policeagency: [facility]. The patient was referred for evaluation because Pt states she drank abottle ofshampoo last night and that she was [facility] where she elopedand wasbrought here on a pickup order.11:02 Subjective: The patients chief complaint is Pt presents to the ED withState Police on nda pickup order due to the pt drinking [facility], pt [facility] and does not know if they will [...] Pt states she was [facility] where she eloped three times. Pt states on the third time, she elopedback toTLS and made it to her apartment where the State Police had a pickup order tobring thept to [facility] for a psych [facility]. [facility]Pt states she can not confirm or deny [...] Pt states [facility] [place] [facility] and has herfirstintake appointment with them on Wednesday (05/09). Pt denies legal issues. Ptdeniesaccess to guns. Delusions are denied, Hallucinations are denied. Patient's moodisdepressed, Having thoughts of suicide. Denies suicidal plan.11:49 Patient reports history of anxiety, Bipolar Disorder, Depression, panicattacks, nhpost-traumatic stress disorder, self -mutilation, sleep disturbance, suicideattempt:Overdose in February 2020 Mental Health Admissions: multiple admissions, [id number] Current Outpatient Mental Health Services: Therapist / Agency:[facility]. Living Environment: Family / Home Support: Fair [...] by screaming at them, andthreatening to elope nd(which the pt did a few times prior). [...] bridge when I eloped from [facility]." Pt isstill inrestraints and calmed down at this time. Pt is being monitored by staff andvitals arebeing taken every 15 minutes.15:39 Notification to family of patient status is not currently needed orappropriate. nhConsultation: Psych MD informed of patient's status at 13:10, ED MD notified ofpatients status at 13:30, Mental Health GENETICS TEACHER made aware of pt status at 13:15.Disposition: Medically cleared for disposition by Dr العلي. PsychiatricConsult isperformed by phone with Dr Oneill The patient is admitted to PSYCHIATRIC MHU.LegalStatus: Patient's legal status will be Emergency: 9.39. Commitment papers arecompleted. Pt has been provided with their legal status and rights. DSM-V DXAxis Idiagnosis: Major Depressive D/O Belcher II diagnosis: Deferred Belcher III diagnosis:None.Belcher IV diagnosis: poor coping skills/poor impulse control. InsurancePre-Certification: Not Required. [facility] Admission Criteria: The patient has [...] Transition of careto Ptwill be transported to [facility] with PSA and MHW.16:22 [place] Suicide Severity Rating Scale: Suicidal Ideation Rating 5;Intensity of cx5Fbdphrjht Rating 25; Suicidal Behavior Rating 0.Psych:00:37 Subjective: Patient's mood is sad, Delusions are denied, Hallucinationsare denied jt0Tokbuo thoughts of suicide. Denies suicidal plan. Objective: [...] 37.12 (104.33 kg, 167.64 cm)tp200:37 Pain Scale: Ufvbdzx4WJ Course:00:33 Patient arrived in ED.tp200:34 Triage completed.tp200:42 Patient has correct armband on for positive identification. Placed ingown. Bed in low aa3eebzlslo. Call light in reach. Sitter at bedside.00:42 No Physician assisted procedures completed.tp200:46 Zeeshan Grover MD is Attending Physician.br00:47 Breonna Marie RN is Primary Nurse.tp210:32 Attending Physician role handed off by Zeeshan Grover MDse10:32 Kylie العلي MD is Attending Physician.se13:47 Appears to be sleeping.ef113:57 Brooklyn Oneill MD is Hospitalizing Provider.seAdministered Medications:09:23 Drug: Ondansetron 8 mg Route: PO;jl11:41 Follow up: Response: Nausea is ihfpcgnnmoz715:29 Drug: Geodon 20 mg Route: IM; Site: left deltoid;ef113:48 Follow up: Response: Anxiety osfxptrdklx995:38 Drug: LORazepam 2 mg Route: IM; Site: right vastus lateralis;ef113:48 Follow up: Response: Anxiety xlxljciudtm6Bzpyjse:13:58 Decision to Hospitalize by Provider.se16:09 Disposition: Admitted to Qdqayev863:09 Condition: stable, Provider notified of abnormal vital signs.16:09 Discharge instructions given to patient, Instructed on need for admit,Demonstratedunderstanding of instructions.16:09 Discharge Assessment: Patient verbalized understanding of dispositioninstructions.Patient has no functional deficits.16:51 Patient left the ED.wi1Nkvketiatx:Елена Hugo, Kylie Sands RN, MD MD seHilborne, Erica RN RN iu1GjAblksBertha Collier RN RN jlPutney, Taylor, RN RN yh6PzqjvpyZeeshan browne MD MD brHolmes, Marianna Brown, Pearl cz3Yesfatstuvw: (The following items were deleted from the chart)00:49 00:34 Presenting complaint: Patient states: discharged from [facility] tp21. Drank a bottle of shampoo. Went to [facility]. tp211:05 10:46 Referral Information: Evaluation referral is generated by a policeagency: [facility]. The patient was referred for evaluation because Pt states she drank abottle ofshampoo last night and that she was brought [facility] where she elopedand wasbrought here on a pickup order nh11:48 11:02 Subjective: The patients chief complaint is Pt presents to the EDwith [facility] on a pickup order due to the pt drinking a [facility] of [facility], pt states she currently lives at [facility] in [place] and does not know if they will accept her back there. Ptstatesher "maybe" not being let back there is stressing her out. Pt admits at 1845 PMlastnight she drank a regular bottle of shampoo and conditioner. nh11:56 11:02 Subjective: The patients chief complaint is Pt presents to the EDwith [facility] on a pickup order due to the pt drinking a bottle of shamp[facility]. During [facility], pt states [facility] [place] and does not know if they will [...] to kill herself. Pt [facility]. Pt states on the third time,sheeloped back to [facility] and made it to her apartment where the [facility] Police had apickuporder to bring the pt to [facility] for a psych evaluation. Pt states shewillingly [...] rce(s) Supporting Document(s) ID Date Data Source [id number] 05/05/2021 10:14:00 PM EDT [facility] Name Value Range Interpretation Code Description Data Stephanie rce(s) Supporting Document(s) Ethanol Less than 10.0 Normal (applies to non-numeric r esults) [facility] ID Date Data Source [id number] 05/05/2021 09:47:00 PM EDT [facility] Name Value Range Interpretation Code Description Data Stephanie rce(s) Supporting Document(s) White Blood Count 3.5-10.5 Normal (applies to non-numeri c results) [facility] Red Blood Count 3.90-5.00 Normal (applies to non-numeric results) [facility] Hemoglobin 12.0-15.5 Normal (applies to non-numeric resul ts) [facility] Hematocrit 34.9-44.5 Normal (applies to non-numeric resul ts) [facility] Mean Corpuscular Volume 81.2-95.1 Normal (applies to non- numeric results) [facility] Mean Corpuscular Hgb 25.6-32.2 Normal (applies to non-num deena results) [facility] Mean Corpuscular Hgb Conc 32.0-36.0 Normal (applies to no n-numeric results) [facility] Red Cell Distribution Width 11.9-15.5 Normal (appli es to non-numeric results) [facility] Platelet Count 271 x10 3/uL 150-450 Normal (applies to non-numeric results) [facility] Mean Platelet Volume 9.4-12.4 Normal (applies to non-num deena results) [facility] Neutrophils% (Auto) 31.0-71.0 Normal (applies to non-nume frank results) [facility] Lymphocytes% (Auto) 20.0-55.0 Normal (applies to non-nume frank results) [facility] Monocytes% (Auto) 4.0-12.0 Normal (applies to non-numeri c results) [facility] Eosinophils% (Auto) 1.0-8.0 Below low normal [facility] Basophils% (Auto) 0.0-2.0 Normal (applies to non-numeri c results) [facility] Immature Granulocytes% (Auto) 0.0-2.0 Normal (alexander lies to non-numeric results) [facility] Neutrophils# (Auto) 1.50-6.20 Normal (applies to non-nume frank results) [facility] Lymphocytes# (Auto) 1.20-4.00 Normal (applies to non-nume frank results) [facility] Monocytes# (Auto) 0.00-0.90 Normal (applies to non-numeri c results) [facility] Eosinophils# (Auto) 0.00-0.50 Normal (applies to non-nume frank results) [facility] Basophils# (Auto) 0.00-0.20 Normal (applies to non-numeri c results) [facility] Immature Granulocytes# (Auto) 0.00-7.00 No rmal (applies to non-numeric results) [facility] ID Date Data Source [id number] 05/05/2021 10:17:00 PM EDT [facility] Name Value Range Interpretation Code Description Data Stephanie rce(s) Supporting Document(s) Sodium 138 mmol/L 136-145 Normal (applies to non-numeric resul ts) [facility] Potassium 3.5-5.1 Normal (applies to non-numeric resul ts) [facility] Chloride 102 mmol/L 98-107 Normal (applies to non-numeric resul ts) [facility] Carbon Dioxide CO2 21-32 Normal (applies to non-numer ic results) [facility] Anion Gap 5.0-16.0 Normal (applies to non-numeric resul ts) [facility] BUN 14 mg/dL 7-18 Normal (applies to non-numeric results) [facility] Creatinine,Serum 0.7-1.2 Normal (applies to non-numeric results) [facility] GFR >60 Normal (applies to non-numeric results) [facility] Glucose Level 97 mg/dL 60-99 Normal (applies to non-numeric re sults) [facility] Reference range is only applicable when patient is fasting Note the following drug interference: Sulfasalazine Sulfapyridine Can see falsely depressed Can see falsely elevated result with up to 17% results with up to 11% decrease in measurement increase in measurement Recommend patients be collected for this test prior to administration of either drug. Calcium 8.5-10.1 Normal (applies to non-numeric resul ts) [facility] Bilirubin,Total 0.1-1.9 Normal (applies to non-numeric results) [facility] SGOT(AST) 32 U/L 15-37 Normal (applies to non-numeric resul ts) [facility] Note the following drug interference: Sulfasalazine Sulfapyridine Can see falsely depressed Can see falsely elevated result with up to 10% results with up to 10% decrease in measurement increase in measurement Recommend patients be collected for this test prior to administration of either drug. SGPT(ALT) 62 U/L 12-78 Normal (applies to non-numeric resul ts) [facility] Note the following drug interference: Sulfasalazine Sulfapyridine Can see falsely depressed Can see falsely elevated result with up to 29% results with up to 10% decrease in measurement increase in measurement Recommend patients be collected for this test prior to administration of either drug. Alkaline Phosphatase 108 U/L 38-126 Normal (applies to non-num deena results) [facility] can increase Alkaline Phosp le vels up to 2 times the normal adult value. Normal values for children and adolescents are 2 to 3 times the normal adult value. Total Protein 6.0-8.2 Normal (applies to non-numeric re sults) [facility] Albumin Level 3.4-5.0 Normal (applies to non-numeric re sults) [facility] ID Date Data Source [id number] 05/05/2021 10:17:00 PM EDT [facility] Name Value Range Interpretation Code Description Data Stephanie rce(s) Supporting Document(s) Troponin I 0.000-0.056 Normal (applies to non-numeric resu lts) [facility] ID Date Data Source [id number] 05/05/2021 10:17:00 PM EDT [facility] Name Value Range Interpretation Code Description Data Stephanie rce(s) Supporting Document(s) Magnesium 1.8-2.4 Normal (applies to non-numeric resul ts) [facility] ID Date Data Source [id number] 05/05/2021 10:17:00 PM EDT [facility] Name Value Range Interpretation Code Description Data Stephanie rce(s) Supporting Document(s) Salicylate 2.8-20.0 Below low normal [facility] o[facility] ID Date Data Source [id number] 05/05/2021 10:17:00 PM EDT [facility] Name Value Range Interpretation Code Description Data Stephanie rce(s) Supporting Document(s) Acetaminophen 10.0-30.0 Below low normal [facility] ID Date Data Source [id number] 05/05/2021 08:25:00 PM EDT [facility] Name Value Range Interpretation Code Description Data Stephanie rce(s) Supporting Document(s) Respiratory specimen severe acute respir atory syndrome coronavirus 2 (SARS-CoV-2) RNA Negative (qualifier value) [facility] This lab was ordered by [facility] and reported by . ID Date Data Source [id number] 05/05/2021 08:45:00 PM EDT [facility] Name Value Range Interpretation Code Description Data Stephanie rce(s) Supporting Document(s) SARS-CoV-2 RNA Negative Normal (applies to non-numeric r esults) [facility] Negative results should be treated as pr [...] Certificate of Accreditation. Factsheets for healthcare providers: https://www.fda.gov/media/578821/download Factsheets for patients: https://www.fda.gov/media/164884/download The ID NOW Instrument is a rapid molecular in vitro diagnostic test utilizing an isothermal nucleic acid amplification technology intended for the qualitative detection of nucleic acid from the SARS-CoV-2 viral RNA. THIS IS A STATE REPORTABLE COMMUNICABLE DISEASE. Manual entry verified by Rachel Leslie 05/05/212044 ID Date Data Source [id number] 05/05/2021 09:12:00 PM EDT [facility] Name Value Range Interpretation Code Description Data Stephanie rce(s) Supporting Document(s) UDS Benzodiazepines Screen Negative [facility] UDS Cocaine Screen Negative Normal (applies to non-numer ic results) [facility] UDS Ampetamine Screen Negative Normal (applies to non-nu meric results) [facility] UDS Cannabinoids Screen Negative Normal (applies to non- numeric results) [facility] UDS Opiates Screen Negative Normal (applies to non-numer ic results) [facility] UDS Barbiturates Screen Negative Normal (applies to non- numeric results) [facility] Threshold Levels Benzodiazepine 200 ng/mL Cocaine 300 ng/mL Amphetamines 1000 ng/mL Cannabinoids (THC) 50 ng/mL Opiates 300 ng/mL Barbiturates 200 ng/mL All positive findings are presumptive and unconfirmed. Confirmation of positive results are performed only at request of provider. Unconfirmed results must not be used for non-medical purposes (i.e. preemployment and legal purposes) ID Date Data Source [id number] 05/05/2021 08:57:00 PM EDT [facility] Collected By: Nurse Initials: jt Time Collected: 2053 Name Value Range Interpretation Code Description Data Stephanie rce(s) Supporting Document(s) Color,Urine Colorl-Dk Y Normal (applies to non-numeric res ults) [facility] Clarity,Urine Clear Normal (applies to non-numeric re sults) [facility] Specific [place],Urine 1.005-1.030 Normal (applies to non- numeric results) [facility] pH,Urine 5.0-8.0 [facility] Protein,Urine Negative Normal (applies to non-numeric re sults) [facility] Glucose,Urine Negative Normal (applies to non-numeric re sults) [facility] Ketones,Urine Negative Normal (applies to non-numeric re sults) [facility] Blood,Urine Negative Normal (applies to non-numeric resu lts) [facility] Bilirubin,Urine Negative Normal (applies to non-numeric results) [facility] Urobilinogen,Urine 0.2-1.0 Normal (applies to non-numer ic results) [facility] Leukocyte Esterase,Urine Negative Normal (applies to non -numeric results) [facility] Nitrite,Urine Negative Normal (applies to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 PsychiatricConsult isperformed by phone with Dr Patten The patient is admitted to PSYCHIATRIC MHU. LegalStatus:Patient's legal status will be Emergency: 9.39. DSM-V DX [place] I diagnosis:Bipolar D/O,depressed. Insurance Pre-Certification: Not Required. [facility] Admission Criteria:Thepatient is experiencing suicidal ideation. The patient requires continuousobservationand/or control to protect self, others or property. The patient's care requiresamulti-modal treatment plan under close supervision and coordination due to thecomplexity and severity of the patient's symptoms. The patient requiresadministrationand monitoring of psychoactive medications by skilled medical providers due tothe sideeffects of the psychoactive medications or significant dosage adjustments.Awaitingtransfer to [facility].Psych:04/1621:08 Subjective: Patient's mood is sad, Delusions are denied, Having thoughtsof suicide. wb1Fwgn for suicide is strangle self or jump in front of car. Objective: Patientiscooperative, Speech is normal, Affect is appropriate. Interventions: Removedpersonalitems and placed in bag. Patient placed in hospital gown. Searched person fordangerousitems. Urine collected and sent for urine drug test. Observation Level Level 3Sitterneeded. Provider notified. Ramón Levy MD Charge nurse notified. Lennox RNLevel 3 order placed. Consultation: Psych pick pulling machine operator notified of patientsarrival.Vital Signs:21:06 BP 105 / [...] No Physician assisted procedures completed.jw505:00 Sitter at bedside.zo4Ahnrqdtwjoiq Medications:No medications were administeredOutcome:04:52 Decision to Hospitalize by Provider.na106:09 Disposition: Admitted to Psych with chart.jw506:09 Condition: xbiibnjpi50:09 Instructed on need for admit.06:09 Discharge Assessment: Patient verbalized understanding of dispositioninstructions.Patient has no functional deficits.06:10 Patient left the ED.gc6Mlimfifjfz:Ramón Levy MD MD na1Thiago Lackey PSA PSA sh4QrlltFortunato Mark, RN RN jw5 Name Value Range Interpretation Code Description Data Stephanie rce(s) Supporting Document(s) ID Date Data Source [id number] 04/26/2021 03:05:00 PM EDT [facility] [address] DISCHARGE SUMMARYPATIENT NAME: YARELI HATCH MR#: [id number] PHYSICIAN: BROOKLYN ONEILL MDAUTHOR: Surendra SMITH,P. DATE: 04/26/21 #: [id number] DATE:UganjnnAmpjxhuxqcivnb71-wsvd-rwo morbidly obese femaleChief Complaint"I was suicidal"Reason for [...] recent of her aunt who lives in [place]. Patientstates she was currently feeling helpless and [...] does admit to not following up with [facility] appointment stating it was reasons related [...] her GED. Patient has never worked in [employer]. Patient currently lives at [facility] [...] sure about how she will get to [place] as well as the staff at [facility] accept her there. During my [...] InstructionsPrescriptionsContinue taking these medications:IBUPROFEN (IBUPROFEN) 400 MG [id number] MILLIGRAM Orally EVERY 6 HOURS NEEDED as needed for HeadacheQty = 21Loratadine* (Claritin*) 10 MG DEUZKB51 MILLIGRAM Orally DAILYDays = 30 Qty = 30PROPRANOLOL HCL (Inderal*) 10 MG DATPII55 MILLIGRAM Orally TWICE DAILYDays = 30 Qty = 60TOPIRAMATE (TOPAMAX) 25 MG BBVFDB68 MILLIGRAM Orally DAILYDays = 60 Qty = 30SERTRALINE (Zoloft*) 50 MG FSZJUF332 MILLIGRAM Orally DAILYDays = 30 Qty = 30MONTELUKAST SODIUM (MONTELUKAST) 10 MG PLADRV31 MILLIGRAM Orally DAILYDays = 30 Qty = 30Aripiprazole* (Abilify*) 10 MG WMGVGB25 MILLIGRAM Orally DAILYPRAZOSIN HCL (PRAZOSIN HCL) 2 MG CAPSULE2 MILLIGRAM Orally AT BEDTIMEAripiprazole (Abilify Maintena) 400 MG SUSER.KGY760 MILLIGRAM Intramuscularly N09HVye = 1Instructions:last im inj received 04/03/21Olanzapine* (Zyprexa*) [...] rce(s) Supporting Document(s) ID Date Data Source [id number] 04/26/2021 02:33:00 PM EDT [address] [id number] NAME: YARELI HATCH#: [id number] PHYSICIAN: BROOKLYN ONEILL [facility]FRE[facility] #: [id number] ADM. DATE: 04/26/21PATIENT : 00 DISCH. DATE: [...] rce(s) Supporting Document(s) ID Date Data Source [id number] 04/26/2021 11:55:00 AM EDT [address] PSYCHIATRIC ASSESSMENTPATIENT NAME: YARELI HATCH MR#: [id number] PHYSICIAN: BROOKLYN ONEILL MDAUTHOR: Dylan Aquino DATE: 04/26/21 #: [id number]-gfen-yzp morbidly obese femaleChief Complaint"I was suicidal"Reason for [...] recent of her aunt who lives in [place]. Patientstates she was currently feeling helpless and [...] being [facility] much and admits is due tohaving lack of relationships with her peers there and states that staff do nothelp or interact with her. Patient does admit to not following up with [facility] appointment stating it was reasons related [...] her GED. Patient has never worked in [employer]. Patient currently lives at [facility] [...] (5.0 - 8.0) 6.0 04/26 0000Ur Specific [place] (1.010 - 1.025) 1.027 H 04/26 0000Urine [...] appropriate behavior she can be discharged back [facility]. If it is determined that she [...] rce(s) Supporting Document(s) ID Date Data Source [id number] 04/26/2021 01:09:00 AM EDT [facility] [place] Name Value Range Interpretation Code Description Data Stephanie rce(s) Supporting Document(s) PCP VISTA NEG NEGATIVE [facility] MINIMUM LEVEL OF DETECTION IS 25 ng/ml BENZODIAZEPINES NEG NEGATIVE [facility] LEVEL OF DETECTION IS 200 ng/ml COCAINE VISTA NEG NEGATIVE [facility] MINIMUM LEVEL OF DETECTION IS 300 ng/ml AMPHETAMINES NEG NEGATIVE [facility] MINIMUM LEVEL OF DETECTION IS 1000 ng/ml BARBITURATES NEG NEGATIVE [facility] CUTOFF CONCENTRATION IS 200 ng/ml CANNABINOIDS NEG NEGATIVE [facility] CUTOFF CONCENTRATION IS 50 ng/ml METHADONE VISTA NEG NEGATIVE [facility] MINIMUM LEVEL OF DETECTION IS 300 ng/ml OPIATE VISTA NEG NEGATIVE [facility] MINIMUM DETECTION LEVEL IS 300 ng/ml ID Date Data Source [id number] 04/26/2021 12:51:00 AM EDT [facility] [place] Name Value Range Interpretation Code Description Data Stephanie rce(s) Supporting Document(s) HCG QUAL URINE Negative Negative [facility] l ID Date Data Source [id number] 04/26/2021 12:51:00 AM EDT [facility] [place] Name Value Range Interpretation Code Description Data Stephanie rce(s) Supporting Document(s) URINE COLOR Yellow [facility] UAPR Cloudy [facility] UGLU Negative NEGATIVE [facility] URINE BILIRUBIN Negative NEGATIVE [facility] UKET Negative NEGATIVE [facility] USG 1.027 1.010-1.025 [facility] UBLO 2+ NEGATIVE [facility] UpH 6.0 5.0-8.0 [facility] UPRO Trace Negative [facility] UUB 1.0 mg/dL 0.2-1.0 [facility] UNIT Negative Negative [facility] ULEU Trace Negative [facility] ID Date Data Source [id number] 04/26/2021 12:51:00 AM EDT [facility] [place] Name Value Range Interpretation Code Description Data Stephanie rce(s) Supporting Document(s) URINE RBC 3-5 RBCs/HPF NONE SEEN [facility] URINE WBC 3-5 WBCs/HPF NONE SEEN [facility] URINE BACTERIA Few NONE SEEN N [facility] URINE EPI. Moderate NONE SEEN [facility] UMUCUS Few NONE SEEN [facility] URINE CRYSTAL FEW AMORPHOUS NONE SEEN [facility] ital ID Date Data Source [id number] 04/26/2021 12:22:00 AM EDT [facility] [place] Name Value Range Interpretation Code Description Data Stephanie rce(s) Supporting Document(s) SALICYLATE < 1.7 mg/dL 0.0-20.0 [facility] ID Date Data Source [id number] 04/26/2021 12:22:00 AM EDT [facility] [place] Name Value Range Interpretation Code Description Data Stephanie rce(s) Supporting Document(s) ACETAMINOPHEN < 2.0 ug/mL 0-30 [facility] ID Date Data Source [id number] 04/26/2021 12:22:00 AM EDT [facility] [place] Name Value Range Interpretation Code Description Data Stephanie rce(s) Supporting Document(s) ETOH NONE DETECTED [facility] NONE DETECTED ID Date Data Source [id number] 04/26/2021 12:22:00 AM EDT [facility] [place] Name Value Range Interpretation Code Description Data Stephanie rce(s) Supporting Document(s) GLU 89 mg/dL 70-110 [facility] Patients taking Sulfasalazine may have f alsely depressedGlucose levels. Patients taking Sulfapyridine may havefalsely elevated Glucose levels. Patients should be drawnfor Glucose before the initial administration of eitherdrug. BUN 16 mg/dL 7-23 [facility] CRE 0.660 mg/dL 0.500-1.300 [facility] GFR > 60 mL/min [facility] CHLORIDE 107 mmol/L 99-110 [facility] NA 138 mmol/L 136-147 [facility] POTASSIUM 4.0 mmol/L 3.5-5.1 [facility] TCO2 25 mmol/L 20-33 [facility] ANION GAP 10.0 10.0-20.0 [facility] CA 9.5 mg/dL 8.3-10.7 [facility] ALKALINE PHOS 118 U/L 45-117 [facility] TP 8.7 g/dL 6.0-7.8 [facility] ALB 4.0 g/dL 3.5-5.0 [facility] ESRD Dialysis patient Albumin reference range: 2.9-4.4 g/dL GL 4.7 g/dL 2.3-3.5 [facility] A/G 0.9 1.0-2.5 [facility] T. BILIRUBIN 0.3 mg/dL 0.1-1.1 [facility] The Dimension Lyman Total Bilirubin is n ot recommended forpatients undergoing treatment with eltrombopag (Promacta)due to the potential for falsely elevated results. ALTI 64 U/L 6-54 [facility] Patients taking Sulfasalazine and/or Sul fapyridine may havefalsely depressed ALT levels. Patients should be drawn forALT before the initial administration of either drug. AST 38 U/L 6-38 [facility] Patients taking Sulfasalazine and/or Sul fapyridine may havefalsely depressed AST levels. Patients should be drawn forAST before the initial administration of either drug. ID Date Data Source [id number] 04/26/2021 12:07:00 AM EDT [facility] [place] Name Value Range Interpretation Code Description Data Stephanie rce(s) Supporting Document(s) WBC 9.84 x10E3/uL 4.0-10.5 [facility] RBC 4.48 x10E6/uL 4.20-5.40 [facility] Hemoglobin 13.0 g/dL 12.0-16.0 [facility] Hematocrit 40.4 % 37.0-47.0 [facility] MCV 90.2 fL 81.0-99.0 [facility] MCH 29.0 pg 27.0-31.0 [facility] MCHC 32.2 g/dL 32.7-35.6 [facility] RDW 12.3 % 11.5-14.0 [facility] Platelet count 291 x10E3/uL 150-450 [facility] ital MPV 10.1 fl 6.9-9.5 [facility] Neutrophils 59.9 % 34-64 [facility] Lymphocytes 31.9 % 25-45 [facility] Monocytes 6.6 % 1.7-10.6 [facility] Eosinophils 1.0 % 0.4-7.0 N [facility] Basophils 0.2 % 0.1-2.0 N [facility] Imm. Gran. 0.4 % 0.1-2.0 N [facility] Abs. Neutro. 5.89 x10E3/uL 1.2-7.6 [facility] [place] Abs. Lymph. 3.14 x10E3/uL 1.0-3.5 [facility] Abs. [place]. 0.65 x10E3/uL 0.1-1.0 [facility] Abs. Eosin. 0.10 x10E3/uL 0.1-0.7 [facility] Abs. Baso. 0.02 x10E3/uL 0.0-0.1 N [facility] Abs. Imm. Gran. 0.04 x10E3/uL 0.0-0.1 N [facility] spital ANRBC% 0 % 0 [facility] ID Date Data Source [id number] 04/26/2021 05:06:00 AM EDT [facility] [place] Physician DocumentationClaxton-Naveen Hinkle edical CenterName: Yareli DuvallAge: 20 yrsSex: FemaleDOB: 2000MRN: [id number] Date: 04/25/2021Time: 23:15Account#: [id number] MD: NONE, - Per PatientED Physician Catalino Piresposition Summary:04/26/21 03:21Hospitalization OrderedHospitalization Status: Inpatient Tgmgakiceho7Hwsssmol: Wisam Oneilla1Location: Mental Health Rxfkou0Hxhjqupxa: Tbfskige0Bxxkvya: an ongoing ttqkiagjq8Qvsaubib: are gcnxgyexwxe7Hpyd Assignment:jh4Dgwjmzwig- Schizoaffective disorder, hsokktheuciiy3Cihprsgnaq Information- Admission Type: Inpatient Status.iq5Bepns:- Medication Reconciliationna1- SBARna1- Medication Reconciliation Form - 2nd Copyna1- Psych. ZXYEex1CIG:04/1603:21 This 20 yrs old White Female presents [...] 400 mg intramuscular suspension,extended release syringe 400 elsjcla42 days3. ibuprofen 400 mg Oral tablet 1 [...] for drug dependence, alcohol de pendence, auditoryhallucinations, xd3ltubzy hallucinations, homicidal ideation. All other systems are negative.Exam:03:22 Head/Face: Normocephalic, atraumatic. Eyes: Pupils equal round andreactive to light, bn9ctydp-vitvkd motions intact. Lids and lashes normal. Conjunctiva [...] ATION & CHF, RESP. FAILURE WITHHYPOXEMIA & de3ZHBEZFNLFTG. PT. HAD 500 ML. 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 IN ED, SOLUMDEROL 80 MG IV, HE IS FEELING BETTER, IN MILD RESP.DISTRESS.PLAN TO ADMIT TO HOSPITALIST SERVICE--DR. SERRANO. PT. AGREABLE WITHADMISSION..04/1523:33 Order name: Acetaminophen Level; Complete Time: ::33 Order name: C BC with diff; Complete Time: ::33 Order name: CMP; Complete Time: :: Order name: COVID-19 PROFILE+LAB; Complete Time: 01::33 Order name: ETOH; Complete Time: :: Order name: Yqcivaocz101/1523: Order name: Salicylate Level; Complete Time: ::33 Order name: Triage - Drug Screen; Complete Time: 01::33 Order name: UA; Complete Time: ::33 Order name: Urine HCG Qualitative; Complete Time: 01::33 Order name: Diet - Mental Health Tray (call dietary); Complete Time:::33 Order name: Belongings Pmaegp114:33 Order name: Document Weight and Height for BMI; Complete Time: 02::33 Order name: Mental Health Evaluation; Complete Time: ::33 Order name: Mental Health Level 3; Complete Time: 02::33 Order name: VS q shift; Complete Time: 02:1601:12 Order name: Medically Cleared for Eval by-Psychosocial, Bindery Helper (.PSA);Complete Time: :42Dispensed Medications:No medications were administeredSignatures:Dispatcher [employer] Ramón Beverly MD MD uj8GhjmuFortunato humphrey RN RN jw5 Name Value Range Interpretation Code Description Data Stephanie rce(s) Supporting Document(s) ID Date Data Source [id number] 04/26/2021 05:06:00 AM EDT [facility] [place] Nurse's [facility]Cl[facility] Tootie terName: Yareli PatelvallAge: 20 yrsSex: FemaleDOB: 2000MRN: [id number] Date: 04/25/2021Time: 23:15Account#: [id number] A4Dyvllfx MD: NONE, - Per PatientDiagnosis: Schizoaffective disorder, unspecifiedPresentation:04/1523:17 Presenting complaint: Patient brought by [employer] officer [facility]5evaluation due to suicidal threats brought on by [...] a large of amount ofpeoplelive, such as senior living, family care, alf, etc? no. Have you traveled to [facility] widespread or ongoing COVID-19 community spread or outside of [facility]? noHaveyou traveled internationally or had contact with someone that has traveled andhas beenill in the past 3 weeks? no Have you received the COVID vaccine? Yes.CommunicableDisease Screen: Negative for fever>/= 100 degrees Fahrenheit. Communicablediseasescreen is negative. (-) rash or unusual skin lesion (-) travel/contact withtraveler(-) respiratory symptoms. Communication Speaks Nigerien? Yes, is preferredlanguage.23:17 Acuity: Triage 0ba333:17 Method Of Arrival: Rcqojhpo562:19 Acuity Assignment: Triage 1tb3Sexwad Assessment:23:21 General: Appears in no apparent distress, Behavior is anxious,cooperative. Sepsis ye6Fvtvnrukx: (1)Signs/symptoms infection No. Pain: Denies pain. PSS-3 [...] 400 mg intramuscular suspension,extended release syringe 400 bvvzoot85 days3. ibuprofen 400 mg Oral tablet 1 [...] threats or abuse. Denies injuries from another.Nutritional je7jtnxoghmk: No deficits noted. Offer of HIV testing: patient was previouslyofferedscreening. Fall Risk None identified.Assessment:00:59 Reassessment: see triage.jw501:05 Reassessment: Patient went to bathroom then walked out the ER doors andonto the ER hx7qtvz refused to come inside, [employer] called and patient walked back in with patientplacedin restraints as per MD order without incident Patient remained in site at alltimes..02:00 Reassessment: Patient appears in no apparent distress at this time.Patient calm and dq0bkgnimkylej at this time.02:15 Reassessment: Patient removed from restraints without incident.jw504:32 Reassessment: Patient appears in no apparent distress at this time.ck1Ahgadygxcneq:00:54 SAFE Act Report Not Completed. Intervention: Observation [...] removed. Pt reports that her aunt in [place] just .Shestarted crying saying that she is suicidal and wants help but feels no one willhelpher. Pt reports that she has the plans to either overdose or hang herself. Ptreportsthat she feels that she needs shelter treatment because she feels nothingelse isworking. Pt has a long history of [facility] Pt was last inpatient at [facility] April 09, 2021. Pthas adiagnosis of Anxiety, Depression, Borderline Personality Disorder. Pt denies HIandhallucinations. Delusions are denied, Hallucinations are denied. Patient's moodisdepressed, Having thoughts of suicide. Plan for suicide is overdose or hangself.01:05 Narrative PSA spoke to Zohra at [facility] [phone] who states that the pttells them aj9umfv she is suicidal every day and she does not understand what is going on.She statesthat this is an every day thing with going to a hospital and gets gettingdischarged.She states that they are lost of what to do at this point and [facility].01:13 Patient reports history of anxiety, Bipolar Disorder, Depression, self-mutilation, uf1Ltpim: BPD. Mental Health Admissions: multiple at multiple facilities last [facility]04[facility]21 Current Outpatient Mental Health Ser vices: Therapist / [facility]. Living Environment: Family / Home Support: fair Thepatientcurrently lives in a [facility] apartment. The patient is single. Detox [...] took it from pt. Shewent to the ls4khsjjblz then left the ED on the ramp, refusing to come inside. [employer] was called.Pt wasput in 4 point restraints.02:40 Transfer plan is communicated to Zohra at [facility]. Consultation: Psych MDinformed of fe8ugobmyr's status at 02:00, ED MD notified of patients status at 02:40, MentalHealth ERRN made aware of pt status at 02:15. Disposition: Medically cleared fordisposition byDr Levy. Psychiatric Consult is performed by phone with Dr Dylan Clark NPThepatient is admitted to [facility]CHIATRIC MHU Patient report is given to Comfort AMAYA. LegalStatus:Patient's legal status will be Emergency: 9.39. Commitment papers arecompleted. pt hasbeen provided with the copy of her legal status and rights. DSM-V DX [place] Idiagnosis:Schizoaffective D/O. Insurance Pre-Certification: Not Required. [facility] AdmissionCriteria: The patient is experiencing [...] psychoactive medications orsignificant dosageadjustments. Awaiting transfer to [facility]. Transition of care to pt will beescorted byPSA and security. The patient is not a banking services advisor or dependent.ColumbiaSuicide Severity Rating Scale: Suicidal Ideation Rating 5; Intensity ofIdeationsRating 25; Suicidal Behavior Rating 0.Psych:04/1523:32 Subjective: Patient's mood is sad, Delusions are denied, Hallucinationsare denied gw0Dhoigs thoughts of suicide. Plan for suicide is hang self or OD. Objective:Patient iscooperative, Speech is normal, Affect is appropriate. Interventions: Removedpersonalitems and placed in bag. Patient placed in hospital gown. Searched person fordangerousitems. Observation Level Level 3 Sitter needed. Provider notified. [facility] nurse notified. Fortunato Mark RN Level 3 [...] for positive identification. Placed ingown. Sitter at et5zhcjqkl.01:00 No Physician assisted procedures completed.jw501:09 Ramón Levy MD is Attending Physician.na102:00 Sitter at bedside.jw503:20 Brooklyn Oneill MD is Hospitalizing Provider.na104:33 Sitter at bedside.vo8Hwocvlqnhgmy Medications:No medications were administeredOutcome:03:21 Decision to Hospitalize by Provider.na105:05 Disposition: Admitted to Psych with chart.jw505:05 Condition: fihuhyzno81:05 Instructed on need for admit.05:05 Discharge Assessment: Patient verbalized understanding of dispositioninstructions.Patient has no functional deficits.05:06 Patient left the ED.xu5Ahegltjpbt:Ramón Levy MD MD fs0QubraFortunato humphrey RN RN fn8GtfbqzmnUsha Adams zi9Zsvvwkzpxvf: (The following items were deleted from the chart)01:01 00:54 Subjective: The patients chief complaint is Pt presents to the EDas a walk in yn2zpwn [employer] for suicidal ideations. Pt had left ED and went on ramp. OPD wascalled tohelp talk to the pt. Pt did agree to come back inside. Pt took her sheet andwrapped itaround her neck. Sheet was removed. Pt reports that her aunt in [place] justpassedaway. She started crying saying that she is suicidal and wants help but feelsno onewill help her. Pt reports that she has the plans to either overdose or hangherself. Ptreports that she feels that she needs terminal gauger treatment because she feelsnothingelse is wo rking. Pt has a long history of being inpatient for mental health atmultipledifferent facilities. Pt was last inpatient at [facility] . sm802:44 01:15 Narrative Pt walked to bathroom then left ED on ramp. [place]. [place] [id number] Name Value Range Interpretation Code Description Data Stephanie rce(s) Supporting Document(s) ID Date Data Source [id number] 04/25/2021 11:05:00 PM EDT [facility] Name Value Range Interpretation Code Description Data [facility](s) LCOVID-19, CORDELL NEGATIVE [facility] by [facility]. ID Date Data Source [id number] 04/26/2021 12:17:00 AM EDT [facility] Name Value Range Interpretation Code Description Data [facility] Supporting Document(s) COVID-19, CORDELL NEGATIVE NEGATIVE [facility] Methodology: Isothermal Nucleic Acid Amp [...] Emergency Use Authorization. ID Date Data Source [id number] 04/24/2021 03:18:28 PM EDT [facility] INFORMATIONPatient MRN Name Date of Age Gend*PT [id number] Yareli Hatch 00 20 years M CPEPPT Location Admission Date/Time Visit ID Attending ProviderNONE 04/24/21 1315 --- Laureen Luis MD([id number]) EPI ID CSN Admitting Provider [id number] Attestation signed by Laureen Luis MD at 04/24/2021 3:18 PMInitial time of commencing Psychiatrist [id number] encounter with patient:04/24/21 1440 : Laureen Luis MDI have examined the patient, [id number], and have personally participated inperforming a psychiatric [...] treatment plan with the patient and team [facility] PSYCHIATRIC ASSESSMENTPatient Name: Yareli Galindo at [facility]: 04/24/21 1305Psych MAJOR ACCOUNT MANAGER First Contact: Yes (04/24/21 1331 : Aysha Valles NP)Chief ComplaintChief ComplaintPatient presents with Psychiatric Evaluation Pt's name is Daisy, he/him pronouns. [facility] presenting for SI w/o plan. Lives in transitional living. Was discharged[facility] days ago. Presents often to [place] for SI per ED staff.Current StressorsCurrent Stressors: Pyschiatric SymptomsHistory of Present IllnessThe patient is a 20-year-old transgender individual (biological female,identifies as male gender, prefers he/him pronouns, preferred name "Daisy"). Thepatient was transferred to [facility] from [facility] to reports of vague suicidal ideation/passive [...] treatment providers, and an AOT order in [facility] (AOT coordinator is Laureen Alarcon ([phone]) and case specialist Taye ([phone]). Patient also has been assigned therapist [facility], Mr. Grayson Farley. Has a psychiatricprescriber but patient cannot recall the prescribers name, reports compliancewith medication. Patient resides in a supervised housing program, staffadministers medications at scheduled intervals. Patient denies use of illicitdrugs and does not drink alcohol (UDS obtained at [facility] EDn egative). Patient does add that there is another stressor of pending legalcharges from reportedly assaulting a nurse, resulting in harassment charge, [facility]. Patient has been calm and cooperative at [facility],exhibits strong features of personality disorder [...] today, [facility] as he does not currently meet criteria forinpatient psychiatric hospitalization. Patient expressed understanding of thisough tells me that he will likely represent to another ED (not for any acuteproblem, cites housing as primary stressor). Social work consult has beenordered, case discussed with CPEP team including RN, social secretary and .Treatment plan goals to be addressed and resolved with social secretary, see notes.Addendum: I spoke with patient's AOT coordinator Ms. Lorraine Alarcon. Susanxplains that patient is a former [facility] resident, now she is a [facility] resident as she lives in this transitional living facilitywith / [facility]. Laureen [facility]. Patient specifically requesting [facility] ([place], [place]) [facility] ([place], [place]). Laureen is aware that [facility] is [facility], Lorraine states that this is fine if the respite facility is [facility], Medicaid transportation will bring her back [facility]res[facility] when needed. Ms. Alarcon would like to beupdated when a final disposition is made, she can be reached at [phone].Patient InfoHistory provided by: patient, medical recordsLanguage supervisor special services used?: NoHPI: Mental Health ProblemPresenting Symptoms: anxiety (Made vague suicidal statements conditional on ifshe is discharged back to her community residence or not, states she would notbe suicidal if she stays in the hospital or goes to a respite facility, no planor intent to harm self or others, no psychosis)Patient accompanied by: (Sent from [facility] ED)Degree of incapacity (severity) : mildTiming: rareProgression: improvingChronicity: chronicContext : Current interpersonal stressorTreatment compliance: all of the timeRelieved by: antipsychotics, mood stabilizersIneffective Treatments: none triedAssociated symptoms: irritabilityRisk factors: (borderline personality disorder)Care Coordination/CollateralObtained, see above.HistoryPast Psychiatric HistoryOutside Treatment HistoryTreatment History Location Date of Last Tx Type of Tx Tx Reason/Dx Tx Length of Stay Tx helpful?Drug/Alcohol Rehab? [facility] 24 [facility] No [facility] 2017 Inpatient Suicidal thoughts 1 year [...] Memory: IntactInsight: GoodJudgment: Good (Adequate)Orientation: Appropriately Oriented l5Dygolmfx Toward Examiner: CooperativeAssociations: No loosening evidentFund of [...] end yourlife)? 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 reported to street light servicer supervisor that she "drank some mouthwash" 3weeks ago [...] goals to beaddressed and resolved with social secretary, see notesPlan/Assessment #2: No medication changes, c ontinue home medication regimen asprescribedPlan/Assessment #3: Chart reviewed, outpatient treatment team to be contacted byEP social secretary (social work consult ordered)General Treatment Plan - GOAL: The patient will have stabilization of presentingsymptoms in order to progress towards discharge from [facility] and have identifiedthe resources available until outpatient follow up.OBJECTIVE: The patient will be assisted with support resources post discharge:While at [facility], the RN or equipment worker will have a one on one conversation withthe patient to verbally identify their individual supports post discharge.,While at [facility], the RN or Chiropractic Teacher will have a one on one conversation withthe patient to verbally identify whom to contact for collateral information andobtain patient consent in writing., While at [facility], the RN or Chiropractic Teacher willhave a one on one conversation with the patient to verbally identify what followup resources will be most beneficial to the patient., While at [facility], the RN orSocial Worker will have a one on one conversation with the patient to verballyidentify any of their perceived and/or actual barriers to post discharge care.,While at [facility], the RN or Chiropractic Teacher will have a one on one conversation withthe patient to verbally explain the Mobile Crisis Outreach Team and encouragepatient to follow up with an appointment.Anxiety Treatment Plan - GOAL: The patient will have stabilization ofpresenting symptoms in order to progress towards discharge from [facility] and haveidentified the resources available until outpatient follow up.OBJECTIVE: The patient will have reduced overall frequency, intensity, andduration of anxiety so that activities of daily living are not impaired while atCPEP.: While at [facility], the RN or equipment worker will have a one on oneconversation with the patient to verbally identify their triggers for anxiety.,While at [facility], the RN or Chiropractic Teacher will have a one on one conversation [...] No changes [] No side effectsBilling Code: [id number] signed byLonnie Villegas Dcwnenkpyotu47/14/21 1459Lonnie Villegas Zmlpmrvnugiu51/14/21 1500 Name Value Range Interpretation Code Description Data Stephanie rce(s) Supporting Document(s) ID Date Data Source [id number] 04/23/2021 10:55:00 PM EDT [facility] Name Value Range Interpretation Code Description Data Stephanie rce(s) Supporting Document(s) Respiratory specimen severe acute respir atory syndrome coronavirus 2 (SARS-CoV-2) RNA Negative (qualifier value) [facility] This lab was ordered by [facility] and reported by . ID Date Data Source [id number] 04/23/2021 11:18:00 PM EDT [facility] Name Value Range Interpretation Code Description Data Stephanie rce(s) Supporting Document(s) SARS-CoV-2 RNA Negative Normal (applies to non-numeric r esults) [facility] Negative results should be treated as pr [...] Certificate of Accreditation. Factsheets for healthcare providers: https://www.fda.gov/media/704600/download Factsheets for patients: https://www.fda.gov/media/098425/download The ID NOW Instrument is a rapid molecular in vitro diagnostic test utilizing an isothermal nucleic acid amplification technology intended for the qualitative detection of nucleic acid from the SARS-CoV-2 viral RNA. THIS IS A STATE REPORTABLE COMMUNICABLE DISEASE. Manual entry verified by Megan Murphy 04/23/21 2317 ID Date Data Source [id number] 04/23/2021 10:16:00 PM EDT [facility] Name Value Range Interpretation Code Description Data Stephanie rce(s) Supporting Document(s) Troponin I 0.000-0.056 Normal (applies to non-numeric resu lts) [facility] ID Date Data Source [id number] 04/23/2021 10:16:00 PM EDT [facility] Name Value Range Interpretation Code Description Data Stephanie rce(s) Supporting Document(s) Sodium 141 mmol/L 136-145 Normal (applies to non-numeric resul ts) [facility] Potassium 3.5-5.1 Normal (applies to non-numeric resul ts) [facility] Chloride 106 mmol/L 98-107 Normal (applies to non-numeric resul ts) [facility] Carbon Dioxide CO2 21-32 Normal (applies to non-numer ic results) [facility] Anion Gap 5.0-16.0 Normal (applies to non-numeric resul ts) [facility] BUN 18 mg/dL 7-18 Normal (applies to non-numeric results) [facility] Creatinine,Serum 0.7-1.2 Normal (applies to non-numeric results) [facility] GFR >60 Normal (applies to non-numeric results) [facility] Glucose Level 108 mg/dL 60-99 Above high normal [facility] Reference range is only applicable when [...] (applies to non-numeric resul ts) [facility] Bilirubin,Total 0.1-1.9 Normal (applies to non-numeric results) [facility] SGOT(AST) 34 U/L 15-37 Normal (applies to non-numeric resul ts) [facility] Note the following drug interference: Sulfasalazine Sulfapyridine Can see falsely depressed Can see falsely elevated result with up to 10% results with up to 10% decrease in measurement increase in measurement Recommend patients be collected for this test prior to administration of either drug. SGPT(ALT) 57 U/L 12-78 Normal (applies to non-numeric resul ts) [facility] Note the following drug interference: Sulfasalazine Sulfapyridine Can see falsely depressed Can see falsely elevated result with up to 29% results with up to 10% decrease in measurement increase in measurement Recommend patients be collected for this test prior to administration of either drug. Alkaline Phosphatase 125 U/L 38-126 Normal (applies to non-num deena results) [facility] can increase Alkaline Phosp le vels up to 2 times the normal adult value. Normal values for children and adolescents are 2 to 3 times the normal adult value. Total Protein 6.0-8.2 Normal (applies to non-numeric re sults) [facility] Albumin Level 3.4-5.0 Normal (applies to non-numeric re sults) [facility] ID Date Data Source [id number] 04/23/2021 10:16:00 PM EDT [facility] Name Value Range Interpretation Code Description Data Stephanie rce(s) Supporting Document(s) Magnesium 1.8-2.4 Normal (applies to non-numeric resul ts) [facility] ID Date Data Source [id number] 04/23/2021 10:16:00 PM EDT [facility] Name Value Range Interpretation Code Description Data Stephanie rce(s) Supporting Document(s) Salicylate 2.8-20.0 Below low normal [facility] ID Date Data Source [id number] 04/23/2021 10:16:00 PM EDT [facility] Name Value Range Interpretation Code Description Data Stephanie rce(s) Supporting Document(s) Acetaminophen 10.0-30.0 Below low normal [facility] ID Date Data Source [id number] 04/23/2021 10:13:00 PM EDT [facility] Name Value Range Interpretation Code Description Data Stephanie rce(s) Supporting Document(s) Ethanol Less than 10.0 Normal (applies to non-numeric r esults) [facility] ID Date Data Source [id number] 04/23/2021 09:42:00 PM EDT [facility] Name Value Range Interpretation Code Description Data Stephanie rce(s) Supporting Document(s) White Blood Count 3.5-10.5 Normal (applies to non-numeri c results) [facility] Red Blood Count 3.90-5.00 Normal (applies to non-numeric results) [facility] Hemoglobin 12.0-15.5 Normal (applies to non-numeric resul ts) [facility] Hematocrit 34.9-44.5 Normal (applies to non-numeric resul ts) [facility] Mean Corpuscular Volume 81.2-95.1 Normal (applies to non- numeric results) [facility] Mean Corpuscular Hgb 25.6-32.2 Normal (applies to non-num deena results) [facility] Mean Corpuscular Hgb Conc 32.0-36.0 Normal (applies to no n-numeric results) [facility] Red Cell Distribution Width 11.9-15.5 Normal (appli es to non-numeric results) [facility] Platelet Count 288 x10 3/uL 150-450 Normal (applies to non-numeric results) [facility] Mean Platelet Volume 9.4-12.4 Normal (applies to non-num deena results) [facility] Neutrophils% (Auto) 31.0-71.0 Normal (applies to non-nume frank results) [facility] Lymphocytes% (Auto) 20.0-55.0 Normal (applies to non-nume frank results) [facility] Monocytes% (Auto) 4.0-12.0 Normal (applies to non-numeri c results) [facility] Eosinophils% (Auto) 1.0-8.0 Normal (applies to non-nume frank results) [facility] Basophils% (Auto) 0.0-2.0 Normal (applies to non-numeri c results) [facility] Immature Granulocytes% (Auto) 0.0-2.0 Normal (alexander lies to non-numeric results) [facility] Neutrophils# (Auto) 1.50-6.20 Normal (applies to non-nume frank results) [facility] Lymphocytes# (Auto) 1.20-4.00 Normal (applies to non-nume frank results) [facility] Monocytes# (Auto) 0.00-0.90 Normal (applies to non-numeri c results) [facility] Eosinophils# (Auto) 0.00-0.50 Normal (applies to non-nume frank results) [facility] Basophils# (Auto) 0.00-0.20 Normal (applies to non-numeri c results) [facility] Immature Granulocytes# (Auto) 0.00-7.00 No rmal (applies to non-numeric results) [facility] ID Date Data Source [id number] 04/23/2021 09:58:00 PM EDT [facility] Name Value Range Interpretation Code Description Data Stephanie rce(s) Supporting Document(s) UDS Benzodiazepines Screen Negative Normal (applies to n on-numeric results) [facility] UDS Cocaine Screen Negative Normal (applies to non-numer ic results) [facility] UDS Ampetamine Screen Negative Normal (applies to non-nu meric results) [facility] UDS Cannabinoids Screen Negative Normal (applies to non- numeric results) [facility] UDS Opiates Screen Negative Normal (applies to non-numer ic results) [facility] UDS Barbiturates Screen Negative Normal (applies to non- numeric results) [facility] Threshold Levels Benzodiazepine 200 ng/mL Cocaine 300 ng/mL Amphetamines 1000 ng/mL Cannabinoids (THC) 50 ng/mL Opiates 300 ng/mL Barbiturates 200 ng/mL All positive findings are presumptive and unconfirmed. Confirmation of positive results are performed only at request of provider. Unconfirmed results must not be used for non-medical purposes (i.e. preemployment and legal purposes) ID Date Data Source [id number] 04/23/2021 09:52:00 PM [facility] Collected By: Nurse Initials: JT Time Collected: 2115 Collected By: Nurse Initials: JT Time Collected: 2115 Collected By: Nurse Initials: JT Time Collected: 2115 Name Value Range Interpretation Code Description Data Stephanie rce(s) Supporting Document(s) Color,Urine Colorl-Dk Y Normal (applies to non-numeric res ults) [facility] Clarity,Urine Clear Normal (applies to non-numeric re sults) [facility] Specific [place],Urine 1.005-1.030 Normal (applies to non- numeric results) [facility] pH,Urine 5.0-8.0 Normal (applies to non-numeric resul ts) [facility] Protein,Urine Negative [facility] [place] Glucose,Urine Negative Normal (applies to non-numeric re sults) [facility] Ketones,Urine Negative Normal (applies to non-numeric re sults) [facility] Blood,Urine Negative [facility] l Bilirubin,Urine Negative Normal (applies to non-numeric results) [facility] Urobilinogen,Urine 0.2-1.0 Normal (applies to non-numer ic results) [facility] Leukocyte Esterase,Urine Negative Normal (applies to non -numeric results) [facility] Nitrite,Urine Negative Normal (applies to non-numeric re sults) [facility] ID Date Data Source [id number] [facility]21 09:52[facility] Initials: JT Time Collected: 2115 Collected By: Nurse Initials: JT Time Collected: 2115 Collected By: Nurse Initials: JT Time Collected: 2115 Name Value Range Interpretation Code Description Data Stephanie rce(s) Supporting Document(s) RBC,Urine None Seen [facility] WBC,Urine None Seen [facility] Casts,Urine None Seen Normal (applies to non-numeric resu lts) [facility] Squamous Cells,Urine None Seen [facility] Amorphous Sediment,Urine None Seen [facility] Bacteria,Urine None Seen [facility] ital ID Date Data Source [id number] 04/23/2021 09:52:00 PM EDT [facility] Collected By: Nurse Initials: JT Time Collected: 2115 Collected By: Nurse Initials: JT Time Collected: 2115 Collected By: Nurse Initials: JT Time Collected: 2115 Name Value Range Interpretation Code Description Data Stephanie rce(s) Supporting Document(s) HCG,Ur Negative Normal (applies to non-numeric results) [facility] ID Date Data Source [id number] 04/21/2021 02:53:00 PM EDT [address] CONSULTPATIENT NAME: YARELI HATCH MR#: [id number] PHYSICIAN:AUTHOR: Colleen SMITH,Bogdan DATE: #: ERPATIENT : 00See AddendumHistoryHistory of Presenting IllnessPatient is 20-year-old female, currently lives in [facility], single, pastpsych history of borderline personality disorder, bipolar disorderChief complaint: Suicidal ideationHistory of present illness: Patient was seen along with PA students. Accordingto information from PSA patient was presented last night. She was banging herhead and expressing suicidal ideation while she was at [facility] and that is when shewas brought [...] out to staff member at [facility] if she does not feel safe.ER physician seems to be frustrated with patient recurrent emergency room visitbut upon discussion with the patient patient denied having any such behaviorpertaining to her safety prior to coming to the hospital or any intent to harmherself prior to the hospital. She was also requesting to have her clotheschanged and going back to [facility] as she was under order of [...] this point.Past Psych/Medical HistoryAllergiesCoded Allergies:risperidone (08/04/19)ADDENDUM: Colleen SMITH,[facility] on 04/21/21 at 1504Patient was also offered a voluntary admission to inpatient mental health unitfor further treatment or if she does not feel safe to return back to [facility].However patient declined and also recommended case management services toprovide her help to find a suitable place that patient likes.DATE SIGNED: 04/21/21 Electronically SignedTIME SIGNED: [id number] BOGDAN MACIAS MD Name Value Range Interpretation Code Description Data Stephanie rce(s) Supporting Document(s) ID Date Data Source [id number] 04/20/2021 11:19:00 PM [facility] Name Value Range Interpretation Code Description Data Stephanie rce(s) Supporting Document(s) SALICYLATE < 1.7 mg/dL 0.0-20.0 [facility] ID Date Data Source [id number] 04/20/2021 11:19:00 PM EDT [facility] [place] Name Value Range Interpretation Code Description Data Stephanie rce(s) Supporting Document(s) ACETAMINOPHEN < 2.0 ug/mL 0-30 [facility] Data Source [id number] 04/20/2021 11:19:00 PM EDT [facility] [place] Name Value Range Interpretation Code Description Data Stephanie rce(s) Supporting Document(s) ETOH NONE DETECTED N [facility] NONE DETECTED ID Date Data Source [id number] 04/20/2021 11:19:00 PM EDT [facility] [place] Name Value Range Interpretation Code Description Data Stephanie rce(s) Supporting Document(s) GLU 100 mg/dL 70-110 [facility] Patients taking Sulfasalazine may have f alsely depressedGlucose levels. Patients taking Sulfapyridine may havefalsely elevated Glucose levels. Patients should be drawnfor Glucose before the initial administration of eitherdrug. BUN 16 mg/dL 7-23 [facility] [facility] CRE 0.657 mg/dL 0.500-1.300 [facility] GFR > 60 mL/min [facility] CHLORIDE 111 mmol/L 99-110 [facility] NA 142 mmol/L 136-147 [facility] POTASSIUM 3.9 mmol/L 3.5-5.1 [facility] TCO2 24 mmol/L 20-33 [facility] ANION GAP 10.9 10.0-20.0 [facility] CA 8.6 mg/dL 8.3-10.7 [facility] ALKALINE PHOS 118 U/L 45-117 [facility] TP 7.4 g/dL 6.0-7.8 [facility] ALB 3.4 g/dL 3.5-5.0 [facility] ESRD Dialysis patient Albumin reference range: 2.9-4.4 g/dL GL 4.0 g/dL 2.3-3.5 [facility] A/G 0.9 1.0-2.5 [facility] T. BILIRUBIN 0.3 mg/dL 0.1-1.1 [facility] The Dimension Lyman Total Bilirubin is n ot recommended forpatients undergoing treatment with eltrombopag (Promacta)due to the potential for falsely elevated results. ALTI 46 U/L 6-54 [facility] Patients taking Sulfasalazine and/or Sul fapyridine may havefalsely depressed ALT levels. Patients should be drawn forALT before the initial administration of either drug. AST 33 U/L 6-38 [facility] Patients taking Sulfasalazine and/or Sul fapyridine may havefalsely depressed AST levels. Patients should be drawn forAST before the initial administration of either drug. ID Date Data Source [id number] 04/20/2021 11:01:00 PM EDT [facility] [place] Name Value Range Interpretation Code Description Data Stephanie rce(s) Supporting Document(s) WBC 7.79 x10E3/uL 4.0-10.5 [facility] RBC 3.99 x10E6/uL 4.20-5.40 [facility] Hemoglobin 11.7 g/dL 12.0-16.0 [facility] Hematocrit 35.3 % 37.0-47.0 [facility] MCV 88.5 fL 81.0-99.0 [facility] MCH 29.3 pg 27.0-31.0 [facility] MCHC 33.1 g/dL 32.7-35.6 [facility] RDW 12.2 % 11.5-14.0 [facility] Platelet count 264 x10E3/uL 150-450 [facility] ital MPV 9.5 fl 6.9-9.5 [facility] Neutrophils 65.2 % 34-64 [facility] Lymphocytes 27.2 % 25-45 [facility] Monocytes 6.0 % 1.7-10.6 [facility] Eosinophils 1.0 % 0.4-7.0 [facility] Basophils 0.3 % 0.1-2.0 [facility] Imm. Gran. 0.3 % 0.1-2.0 [facility] Abs. Neutro. 5.08 x10E3/uL 1.2-7.6 [facility] [place] Abs. Lymph. 2.12 x10E3/uL 1.0-3.5 [facility] Abs. [place]. 0.47 x10E3/uL 0.1-1.0 N [facility] l Abs. Eosin. 0.08 x10E3/uL 0.1-0.7 [facility] Baso. 0.02 x10E3/uL 0.0-0.1 [facility] Abs. Imm. Gran. 0.02 x10E3/uL 0.0-0.1 [facility] spital ANRBC% 0 % 0 [facility] ID Date Data Source [id number] 04/20/2021 10:40:00 PM EDT [facility] Name Value Range Interpretation Code Description Data Stephanie rce(s) Supporting Document(s) LCOVID-19, CORDELL NEGATIVE [facility] and reported by [facility]. ID Date Data Source [id number] 04/20/2021 11:16:00 PM EDT [facility] [place] Name Value Range Interpretation Code Description Data Stephanie rce(s) Supporting Document(s) COVID-19, CORDELL NEGATIVE NEGATIVE [facility] Methodology: Isothermal Nucleic Acid Amp lification [...] Emergency Use Authorization. ID Date Data Source [id number] 04/21/2021 03:43:00 PM EDT [facility] Physician DocumentationClaxton-Naveen Hinkle edical CenterName: Yareli AdamelAge: 20 yrsSex: FemaleDOB: 2000MRN: [id number] Date: 04/20/2021Time: 22:29Account#: [id number] MD: NONE, - Per PatientED Physician Ab Pires Summary:04/21/21 15:00Discharge OrderedLocation: Home Self CareafProblem: an ongoing problemafSymptoms: are unchangedafCondition: StableafDiagnosis- Adjustment disorder, unspecifiedafFollowup:af- With: Private Physician- When: 1 week- Reason: Recheck today's complaintsDischarge Instructions:- ADJUSTMENT DISORDERaf- Discharge Summary Nhesked5Xxpvi:- Medication Reconciliationaf- Medication Reconciliation Form - 2nd CopyafHPI:04/1104:45 This 20 yrs old White Female presents to ER via Police with complaints ofPsych Problem.na104:45 The patient presents to the emergency department with depression, PT.BROUGHT TO ED BY he2QPZN FOR MHE. APPARENTLY SHE WAS HITTING HER [...] 400 mg intramuscular suspension,extended release syringe 400 epzpera41 days3. ibuprofen 400 mg Oral tablet 1 [...] Negative for drug dependence, alcohol dependence, auditoryhallucinations, ol5xbbsgv hallucinations, homicidal ideation. All other systems are negative.Exam:04:49 Head/Face: Normocephalic, atraumatic. Eyes: Pupils equal round andreactive to light, uy1ojvbl-lujeli motions intact. Lids and lashes normal. Conjunctiva [...] 97.7(T); Pulse Ox 95% on R/A; Pain0/10; jl15:36py040/2:32 Body Mass Index 37.12 (104.33 kg, 167.64 cm)ef110/1115:40 Pain Scale: Vkqtdat16:43 ggarlwueof6ODV:03:21 Patient medically screened.na104:50 Data reviewed: vital signs, nurses notes, lab test result(s).na110/1022:31 Order name: Acetaminophen Level; Complete Time: 03:2:31 Order name: CBC with diff; Complete Time: 03::32 Order name: CMP; Complete Time: 03:2:32 Order name: COVID-19 PROFILE+LAB; Complete Time: 03:2:32 Order name: ETOH; Complete Time: 03:2:32 Order name: Rxjykolny1312:32 Order name: Salicylate Level; Complete Time: 03:2:32 Order name: Triage - Drug Bpgmwrht3502:32 Order name: QClf0212:32 Order name: Urine HCG Qualitat /1022:32 Order name: Diet - Mental Health Tray (call dietary); Complete Time:22:43 :32 Order name: Belongings List; Complete Time: 15::32 Order name: Document Weight and Height for BMI; Complete Time: 15::32 Order name: Mental Health Evaluation; Complete Time: 15:3:24 Order name: Medically Cleared for Eval by- Psychosocial, Bindery Helper (YE)ax0Srlmrjmot Medications:15:42 Not Given (Patient Refused): ARIPiprazole 10 mg PO fdyeww953:42 Not Given (Patient Refused): Loratadine 10 mg PO gvesnt125:42 Not Given (Patient Refused): Singulair Chewable Tablet 10 mg PO ozxitq879:42 Not Given (Patient Refused): Propranolol 10 mg PO avdkel807:42 Not Given (Patient Refused): sertraline 50 mg PO fvjyjm550:42 Not Given (Physician Discretion): Topiramate 75 mg PO bxarij0Yjefsyqbpc:Dispatcher [employer] Anshul Loving MD MD afAl-Hussein, Nabeel, MD MD na1Hilborne, Erica, RN RN ef1 Name Value Range Interpretation Code Description Data Stephanie rce(s) Supporting Document(s) ID Date Data Source [id number] 04/21/2021 03:43:00 PM EDT [facility] [place] Nurse's NotesClaxton-Wain[facility] terName: Yareli DuvallAge: 20 yrsSex: FemaleDOB: 2000MRN: [id number] Date: 04/20/2021Time: 22:29Account#: [id number] MD: NONE, - Per PatientDiagnosis: Adjustment disorder, unspecifiedPresentation:04/1022:30 Presenting complaint: Patient states: the dairy husbandry teacher got me because i wasbanging my head and hq2rirxwovqfm to tie something around my neck. International Travel Fever No.CoronavirusScreening: Have you received the COVID vaccine? Yes. Communicable DiseaseScreen:Negative for fever>/= 100 degrees Fahrenheit. Communicable disease screen isnegative.(-) rash or unusual skin lesion (-) travel/contact with traveler (-)respiratorysymptoms. Communication Speaks Nigerien? Yes, is preferred language.22:30 Acuity: Triage 3js254:30 Acuity Assignment: Triage 8kc418:30 Method Of Arrival: Ekwczsxc1Gowfei Assessment:22:31 General: Appears in no apparent distress, [...] 400 mg intramuscular suspension,extended release syringe 400 hcdywkx57 days3. ibuprofen 400 mg Oral tablet 1 [...] threats or abuse. Denies injuries from another.Nutritional ao8ndgyxwehl: No deficits noted. Offer of HIV testing: patient was previouslyofferedscreening. Fall Risk None identified.Assessment:22:35 General: Appears in no apparent distress, obese, unkempt, Behavior isagitated. Neuro: ai1Zatwk of Consciousness is awake, alert, obeys commands. [...] is generated by a policeagency: Police. The qi3euscggk was referred for evaluation because Pt states "the dairy husbandry teacher got me becauseI wasbanging my head and threatened to tie something around my neck.".14:14 Subjective: The patients chief complaint is Pt presents to the ED withPolice due to em2the pt banging her head against the wall and threatening to tie somethingaround herneck at the [facility] facility. During MHE, pt denies SI/HI/ Pt denieshallucinations. Ptdenies self harm. Pt states she was just mad at [facility] facility due to being"pissed off"because she hates her current [facility] housing. Pt denies being verbally abusivetowardsstaff at [facility]. Pt denies threatening to tie something around her neck at [facility]. Pt states she would like to be discharged home as she is not suicidalandhomicidal. Pt has outpatient services at [facility] counselor [place]. Pt denies legal issues. Pt denies access toguns. PSAspoke with Nikky at [facility]. Nikky states the pt was banging her head in her roomand inthe hallway there at her residence. Nikky states the pt was verbally abusivetowardsstaff. Nikky states there needs to be a better plan for the pt as there seemsto be apattern of her going to the ED since she has been at [facility] since February 13 2021.Delusions are denied, Hallucinations are denied. Patient's mood is euthymic.14:22 Patient reports history of anxiety, Bipolar Disorder, Depression, Other:Borderline ir8Mhbtoszuvur Disorder. Mental Health Admissions: [facility], [facility] Agency[facility]. Living Environment: Family / Home Support: Fair The patient currentlylives kaley [facility] residence. The patient is single. Detox / Rehab Admissions: None. CurrentOutptAlcohol or Substance Abuse Services: None.14:24 Patient presents to Emergency Department with the following symptomswithin the past 2 ox5wrrem: self-mutilation, suicidal statements/threats. Objective: Patient iscooperative,Speech is normal. Affect is appropriate. Patient has mutilated themselves bycuttingright arm and left arm Cuts on arms from wire in face mask at [facility] facility twodaysago. Mental status exam: Patients [...] by phone with Dr Macias. DSM-V DX Belcher I diagnosis:Adjustment D/OUnspecified Belcher II diagnosis: Deferred Belcher III diagnosis: None. Belcher IVdiagnosis:poor coping skills. [place] Suicide Severity Rating Scale: Suicidal IdeationRating 0;Intensity of Ideations Rating 0; Suicidal Behavior Rating 0.14:35 Narrative Pt will be discharged back to [facility] per Dr. Macias with a diagnosisof Adjustment xo4Snvtlevf. Pt can contract for safety. Pt denies SI/HI. Pt will follow up withtheiroutpatient provider, the [facility] and upcomingappointmentswill be verified and expedited. Pt has been provided with the PSA and Reachoutphonenumbers. Pt has been instructed to take medications as prescribed and return [facility] ED should problems continue or worsen. Per Dr. Macias, pt will complete 5copingskills/5 goals.15:[address] Macias spoke with ED Dr. Strauss. Dr. Macias states the ptcapable of ug3idvqet to the ED whenever she feels suicidal and that she needs to. Dr. Alvarezuggestsinvolving Case Management and having [facility] make requests for other housingservices ifthe pt wishes not to live at [facility]. Dr. Macias states if the pt [...] 97.7(T); Pulse Ox 95% on R/A; Pain0/10; jl15:09vk396/2:32 Body Mass Index 37.12 (104.33 kg, 167.64 cm)ef110/1115:40 Pain Scale: Osjodti72:43 ylwumrqcmk0IE Course:04/1022:29 Patient arrived in ED.ef122:29 NONE, - Per Patient is Private Physician.ef122:30 Triage completed.ef122:35 Patient has correct armband on for positive identification. Bed in lowposition. Sitter ef1at bedside. Verbal reassurance given. Pillow given.22:35 Labs drawn. Collected by lab. Nasal Swab.ef110/1103:21 Ramón Levy MD is Attending Physician.na106:52 Resting quietly.fw10:17 Appears to be sleeping.ef115:43 No Physician assisted procedures completed.vt6Xqitmmwyelly Medications:15:42 Not Given (Patient Refused): ARIPiprazole 10 mg PO vsylke947:42 Not Given (Patient Refused): Loratadine 10 mg PO fqsvri943:42 Not Given (Patient Refused): Singulair Chewable Tablet 10 mg PO :42 Not Given (Patient Refused): Propranolol 10 mg PO wuppct215:42 Not Given (Patient Refused): sertraline 50 mg PO ubbwux536:42 Not Given (Physician Discretion): Topiramate 75 mg PO vzmyjd9Toqibqt:15:00 Discharge ordered by .af15:43 Disposition: Discharged to home ambulatory.ef115:43 Condition: stable, Provider notified of abnormal vital signs.15:43 Discharge instructions given to patient, Instructed on dischargeinstructions, followup and referral plans. Demonstrated understanding of instructions.15:43 Discharge Assessment: Patient verbalized understanding of dispositioninstructions.Patient able15:43 Patient left the ED.e v3Atieilirvw:Anshul Strauss MD MD afAl-Hussein, Nabeel, MD MD na1Ami Medrano RN RN Bertha Ascencio RN RN jlWest, Fayeanne, RN RN fwMoyer Pearl qm7Bhkvwrqjpda: (The following items were deleted from the chart)00:50 00:40 [facility] 13:54 Referral Information: Evaluation referral is generated by de7er841:41 14:35 Narrative Pt will be discharged back to [facility] per Dr. Macias. Pt cancontract for nq0igbvsd. Pt denies SI/HI. [facility] and upcoming appointments will be verifiedandexpedited. [...] threatening to tie somethingaround herneck at the [facility] facility. During MHE, pt denies SI/HI/ Pt denieshallucinations. Ptdenies self harm. Pt states she was just mad at [facility] facility due to being"pissed off"because she hates her current [facility] housing. Pt denies being verbally abusivetowardsstaff at [facility]. Pt denies threatening to tie something around her neck at [facility]. Pt states she would like to be discharged home as she is not suicidalandhomicidal. Pt [facility] counselor [place]. Pt denies legal issues. Pt denies access toguns..Delusions are denied, Hallucinations are denied. Patient's mood is euthymic.em2 Name Value Range Interpretation Code Description Data Stephanie e(s) Supporting Document(s) ID Date Data Source [id number] 04/19/2021 03:01:00 AM EDT [facility] [place] Name Value Range Interpretation Code Description Data Stephanie rce(s) Supporting Document(s) SALICYLATE < 1.7 mg/dL 0.0-20.0 [facility] ID Date Data Source [id number] 04/19/2021 03:01:00 AM EDT [facility] [place] Name Value Range Interpretation Code Description Data Stephanie rce(s) Supporting Document(s) ACETAMINOPHEN < 2.0 ug/mL 0-30 [facility] ID Date Data Source [id number] 04/19/2021 03:01:00 AM EDT [facility] [place] Name Value Range Interpretation Code Description Data Stephanie rce(s) Supporting Document(s) ETOH NONE DETECTED [facility] NONE DETECTED ID Date Data Source [id number] 04/19/2021 03:01:00 AM EDT [facility] [place] Name Value Range Interpretation Code Description Data Stephanie rce(s) Supporting Document(s) GLU 86 mg/dL 70-110 [facility] Patients taking Sulfasalazine may have f alsely depressedGlucose levels. Patients taking Sulfapyridine may havefalsely elevated Glucose levels. Patients should be drawnfor Glucose before the initial administration of eitherdrug. BUN 13 mg/dL 7-23 [facility] CRE 0.615 mg/dL 0.500-1.300 [facility] GFR > 60 mL/min [facility] CHLORIDE 113 mmol/L 99-110 [facility] NA 142 mmol/L 136-147 [facility] POTASSIUM 3.9 mmol/L 3.5-5.1 [facility] TCO2 24 mmol/L 20-33 [facility] ANION GAP 8.9 10.0-20.0 [facility] CA 8.6 mg/dL 8.3-10.7 [facility] ALKALINE PHOS 112 U/L 45-117 [facility] TP 7.3 g/dL 6.0-7.8 [facility] ALB 3.3 g/dL 3.5-5.0 [facility] ESRD Dialysis patient Albumin reference range: 2.9-4.4 g/dL GL 4.0 g/dL 2.3-3.5 [facility] A/G 0.8 1.0-2.5 [facility] T. BILIRUBIN 0.2 mg/dL 0.1-1.1 [facility] The Dimension Lyman Total Bilirubin is n ot recommended forpatients undergoing treatment with eltrombopag (Promacta)due to the potential for falsely elevated results. ALTI 41 U/L 6-54 [facility] Patients taking Sulfasalazine and/or Sul fapyridine may havefalsely depressed ALT levels. Patients should be drawn forALT before the initial administration of either drug. AST 26 U/L 6-38 [facility] Patients taking Sulfasalazine and/or Sul fapyridine may havefalsely depressed AST levels. Patients should be drawn forAST before the initial administration of either drug. ID Date Data Source [id number] 04/19/2021 02:32:00 AM EDT [facility] [place] Name Value Range Interpretation Code Description Data Stephanie rce(s) Supporting Document(s) WBC 7.86 x10E3/uL 4.0-10.5 [facility] RBC 3.92 x10E6/uL 4.20-5.40 [facility] Hemoglobin 11.6 g/dL 12.0-16.0 [facility] Hematocrit 35.0 % 37.0-47.0 [facility] MCV 89.3 fL 81.0-99.0 [facility] MCH 29.6 pg 27.0-31.0 [facility] MCHC 33.1 g/dL 32.7-35.6 [facility] RDW 12.1 % 11.5-14.0 [facility] Platelet count 276 x10E3/uL 150-450 [facility] ital MPV 9.4 fl 6.9-9.5 [facility] Neutrophils 60.4 % 34-64 [facility] Lymphocytes 30.8 % 25-45 [facility] Monocytes 6.9 % 1.7-10.6 [facility] Eosinophils 1.1 % 0.4-7.0 [facility] Basophils 0.3 % 0.1-2.0 [facility] Imm. Gran. 0.5 % 0.1-2.0 [facility] Abs. Neutro. 4.75 x10E3/uL 1.2-7.6 [facility] [place] Abs. Lymph. 2.42 x10E3/uL 1.0-3.5 [facility] Abs. [place]. 0.54 x10E3/uL 0.1-1.0 [facility] Abs. Eosin. 0.09 x10E3/uL 0.1-0.7 [facility] Abs. Baso. 0.02 x10E3/uL 0.0-0.1 [facility] Abs. Imm. Gran. 0.04 x10E3/uL 0.0-0.1 N [facility] spital ANRBC% 0 % 0 [facility] ID Date Data Source [id number] 04/19/2021 02:36:00 AM EDT [facility] [place] Name Value Range Interpretation Code Description Data Stephanie rce(s) Supporting Document(s) PCP VISTA NEG NEGATIVE [facility] MINIMUM LEVEL OF DETECTION IS 25 ng/ml BENZODIAZEPINES NEG NEGATIVE [facility] al MINIMUM LEVEL OF DETECTION IS 200 ng/ml COCAINE VISTA NEG NEGATIVE [facility] MINIMUM LEVEL OF DETECTION IS 300 ng/ml AMPHETAMINES NEG NEGATIVE [facility] MINIMUM LEVEL OF DETECTION IS 1000 ng/ml BARBITURATES NEG NEGATIVE [facility] CUTOFF CONCENTRATION IS 200 ng/ml CANNABINOIDS NEG NEGATIVE [facility] CUTOFF CONCENTRATION IS 50 ng/ml METHADONE VISTA NEG NEGATIVE [facility] MINIMUM LEVEL OF DETECTION IS 300 ng/ml OPIATE VISTA NEG NEGATIVE [facility] MINIMUM DETECTION LEVEL IS 300 ng/ml ID Date Data Source [id number] 04/19/2021 02:16:00 AM EDT [facility] [place] Name Value Range Interpretation Code Description Data Stephanie rce(s) Supporting Document(s) HCG QUAL URINE Negative Negative [facility] ID Date Data Source [id number] 04/19/2021 02:16:00 AM EDT [facility] [place] Name Value Range Interpretation Code Description Data Stephanie rce(s) Supporting Document(s) URINE COLOR Yellow [facility] UAPR Cloudy [facility] UGLU Negative NEGATIVE [facility] URINE BILIRUBIN Negative NEGATIVE [facility] UKET Negative NEGATIVE [facility] USG 1.029 1.010-1.025 [facility] UBLO Negative NEGATIVE [facility] UpH 5.5 5.0-8.0 [facility] UPRO Negative Negative [facility] UUB 1.0 mg/dL 0.2-1.0 [facility] UNIT Negative Negative [facility] ULEU Negative Negative [facility] ID Date Data Source [id number] 04/19/2021 01:30:00 AM EDT [facility] Name Value Range Interpretation Code Description Data Stephanie rce(s) Supporting Document(s) LCOVID-19, CORDELL NEGATIVE [facility]. ID Date Data Source [id number] 04/19/2021 02:30:00 AM EDT [facility] Name Value Range Interpretation Code Description Data Stephanie rce(s) Supporting Document(s) COVID-19, CORDELL NEGATIVE NEGATIVE [facility] Methodology: Isothermal Nucleic Acid Amp lification [...] Emergency Use Authorization. ID Date Data Source [id number] 04/19/2021 02:55:00 PM EDT [facility] Physician DocumentationClLeticia Hinkle edical CenterName: Yareli DuvallAge: 20 yrsSex: FemaleDOB: 2000MRN: [id number] Date: 04/19/2021Time: 01:17Account#: [id number] 1Private MD: NONE, - Per PatientED Physician Chetan Grover Summary:04/19/21 14:31Discharge OrderedLocation: Home Self CareafProblem: an ongoing problemafSymptoms: are unchangedafCondition: StableafDiagnosis- Bipolar disorder, unspecifiedafFollowup:af- With: Private Physician- When: 1 week- Reason: Recheck today's complaintsDischarge Instructions:- BIPOLAR DISORDERaf- Discharge Summary Mysccmb11Vwyvr:- Medication Reconciliationaf- Medication Reconciliation Form - 2nd CopyafHPI:04/907:14 This 20 yrs old White Female presents to ER via Police with complaints ofPsych Problem.br07:14 Obese 20-year-old female brought by PD for evaluation of self- harm.Please call to seen brpatient where she was seen slamming her head against the wall after attemptingto cutwrists w wire from covid mask. self endorses [facility]Historical:- Allergies: Haldol; Risperdal;- Home Meds:1. aripiprazole 10 mg oral tablet 1 tab daily2. aripiprazole 400 mg intramuscular suspension,extended release syringe 400 zvyrgye54 days3. ibuprofen 400 mg Oral tablet 1 [...] Temp 98.3; Pulse Ox 98% on R/A; Ajatmn883.33 kg; go9Piakjs 5 ft. 6 in. ; Pain 0/10;14:44 BP 119 / 88; Pulse 88; Resp 16; Temp 98; Pulse Ox 98% ;kk201:24 Body Mass Index 37.12 (104.33 kg, 167.64 cm)kk301:24 Pain Scale: Eicvjoj7AJH:01:33 Patient medically screened.br07:17 Data reviewed: vital signs, [...] name: ETOH; Complete Time: 03::37 Order name: Ajknduzeq790/0901:37 Order name: Salicylate Level; Complete Time: 03::37 Order name: Triage - Drug Screen; Complete Time: 03::37 Order name: UA; Complete Time: 03::37 Order name: Urine HCG Qualitative; Complete Time: 03::37 Order name: Diet - Mental Health Tray (call dietary):37 Order name: Belongings Wrzlce917/0901:37 Order name: Document Weight and Height for RMDok833:37 Order name: Mental Health Qwbcrwgtaqgz412/0901:37 Order name: Mental Health Level 8jp81904/901:37 Order name: VS q qxiudkv225/0903:17 Order name: Consult Orders-Psychosocial, Bindery Helper (.PSA)brDispensed Medications:03:37 Drug: B52 IM - (LORazepam 2 mg, diphenhydrAMINE 50 mg, HaloperidolLactate 5 mg) Route: cm4IM; Site: left vastus lateralis;Signatures:Dispatcher [employer] Anshul Loving MD MD afRoberts, Brandon, MD MD brKelly, Krista, RN RN du7CgvgulsvsWendy quintana RN RN cm4 Name Value Range Interpretation Code Description Data Stephanie rce(s) Supporting Document(s) ID Date Data Source [id number] 04/19/2021 02:55:00 PM EDT [facility] [place] Nurse's NotesClaxMargaretville [facility] terName: Yareli PatelvallAge: 20 yrsSex: FemaleDOB: 2000MRN: [id number] Date: 04/19/2021Time: 01:17Account#: [id number] MD: NONE, - Per PatientDiagnosis: Bipolar disorder, unspecifiedPresentation:04/901:18 Presenting complaint: Patient states: "Well, the dairy husbandry teacher came because I wasbanging my hs0slqj on the wall and I wasn't being suicidal.". Coronavirus Screening: Have youbeendiagnosed with COVID-19 in the past 30 days? no Are you currently on quarantinebyPublic Health? no Flu-like symptoms reported in the last 14 days: no. Have youhadclose contact with confirmed or suspected COVID-19 case? no Do you live in asettingwhere a large of amount of people live, such as senior living, family care,alf, etc?yes. Have you traveled to a location with widespread or ongoing COVID-19communityspread or outside of [facility]? no Have you traveled internationally or hadcontact withsomeone that has traveled and has been ill in the past 3 weeks? no Have youreceivedthe COVID vaccine? Yes Sophia unknown. Communication Speaks Nigerien? Yes, ispreferredlanguage. Language Line Services needed? No Are TDD needed? No. Best learningmethod:discussion. Learning barriers: none identified.01:18 Acuity: Triage 1go220:18 Method Of Arrival: Qnlhejlt696:19 Acuity Assignment: Triage 7ur795:21 International Travel Fever No. Communicable Disease Screen: Negative forfever>/= 100 vy6ifnwcvb Fahrenheit. Communicable disease screen is negative. (-) rash orunusual skinlesion (-) travel/contact with traveler (-) respiratory symptoms.Triage Assessment:01:24 General: Appears unkempt, well nourished, Behavior is appropriate forage, cooperative, jl2Rmrzle fever, chills. Sepsis Screening: (1)Signs/symptoms infection Sepsis isnotsuspected. Pain: Denies pain. PSS-3 Now I'm going to ask you some questionsthat we askeveryone treated here, no matter what problem they are here for. It is [facility] policy and it helps us to [...] 400 mg intramuscular suspension,extended release syringe 400 utpzbsr43 days3. ibuprofen 400 mg Oral tablet 1 [...] threats or abuse. Denies injuries from another.Nutritional lx0kkjafvlai: No deficits noted. Offer of HIV testing: patient was previouslyofferedscreening. Fall Risk None identified.Assessment:01:35 Reassessment: No changes from previously documented assessment.kk301:54 Reassessment: Patient refused to have labs drawn, explained mental healthprocess and kk3the steps necessary to be medically cleared, patient still refused, PSA and EDprovidermade aware.02:22 Reassessment: patient starts refusing blood work and screaming at staff.OPD called to hp7borlhex, patient is known to be aggressive. Patient gets aggitated when thepolice gethere and continues to scream at staff, code carmen called. Patient agrees toget bloodwork done. .03:38 Reassessment: patient tries to elope twice, walking out to the ramp.Patient was jc7saqierjnlk and followed out to the ramp, patient did come back inside bothtimes.Patient begins hitting her head off the wall and not cooperating with staff andyelling/ calling staff vulgar names. Patient has no self control at this timescreamingin the ER. Vanesa ramos called..03:52 Reassessment: Patient placed in 4 point restraints at 0342 due tocontinued lack of gt5hhwh control.04:33 Reassessment: patient released from restraints at 0433.cm404:46 Reassessment: Patient appears in no apparent distress at this time.cm407:30 Reassessment: Patient appears in no apparent distress at this time. Nochanges from wu6chewwdopno documented assessment. Patient sleeping.09:57 Reassessment: Patient appears in no apparent distress at this time. Nochanges from ur7akxrpkrxxl documented assessment. Patient sleeping. .Psychosocial:07:26 SAFE Act [...] facilities last being three days ago at [facility]. Ptreportsthat she has been and eating and sleeping well. Pt [facility] Pt states that she does not feelshe needsinpatient services at this time. Pt reports she feels she would be safe to bedischarged home at this time back to [facility]. Delusions are denied, Hallucinationsaredenied. Patient's mood is depressed.12:00 Patient reports history of anxiety, Bipolar Disorder, Depression, self-mutilation, um42Vrnpbf Health Admissions: multiple last yash ng at [facility] two days ago CurrentOutpatient Mental Health Services: Psychiatrist / Agency: [facility].LivingEnvironment: Family / Home Support: good The patient currently lives in a TLSapartment.12:04 Patient presents to Emergency Department with the following symptomswithin the past 2 st29hogjx: Anger, anxiety, depressed mood, poor concentration, poor impulsecontrol,suicidal ideation with no plan.12:06 Objective: Patient is cooperative, Speech is normal. Affect isappropriate. Mental ho17sjpchw exam: Patients appearance is appropriate, Patient's behavior [...] patient's status at 13:33, ED MDnotified of up49lnzehqhb status at 13:33. Disposition: Medically cleared for disposition by [facility].Psychiatric Consult is performed by phone with Dr Strauss The patient has asafedestination which is Pt will be discharged to [facility] per Dr. Canela. Pt cancontract forsafety and denies SI/HI. Pt will follow up with outpatient next week. Pt willtakemedications as prescribed. Pt provided contact information for JAN Mazariegos. Ptwill come to the ED if problems continue or worsen. DSM-V DX Belcher I diagnosis:BipolarD/O, Unspecified Belcher II diagnosis: Deferred Belcher III diagnosis: None. Belcher IVdiagnosis: poor impulse control. The patient is not a banking services advisor ormilitarydependent. [place] Suicide Severity Rating Scale: Suicidal Ideation Rating 0;Intensity of Ideations Rating 0; Suici reji Behavior Rating 0.Psych:01:28 Subjective: Patient's mood is euphoric, Delusions are denied,Hallucinations are denied bv0Gmsjyg thoughts of suicide. Denies suicidal plan. Objective: [...] Temp 98.3; Pulse Ox 98% on R/A; Tkwbnl745.33 kg; kb6Debths 5 ft. 6 in. ; Pain 0/10;14:44 BP 119 / 88; Pulse 88; Resp 16; Temp 98; Pulse Ox 98% ;kk201:24 Body Mass Index 37.12 (104.33 kg, 167.64 cm)kk301:24 Pain Scale: Dbtwctv7TK Course:01:17 Patient arrived in ED.kk301:18 NONE, - Per Patient is Private Physician.kk301:19 Triage completed.kk301:30 Ratna Barbosa RN is Primary Nurse.kk301:33 Zeeshan Grover MD is Attending Physician.br01:35 Urine collected. Clean catch specimen. Nasal Swab Collected by Nurse.kk301:40 Patient has correct armband on for positive identification. Placed ingown. Bed in low jd3pbruqamf. Call light in reach. Side rails up [...] has no functional deficits.14:55 Patient left the ED.vx6Ajwrrsyjlq:Anshul Strauss MD MD afKnight, Zakia, RN RN ys3Hryh, Ina danielzm07QmtnqskZeeshan Grover MD MD brKelly, Krista, RN RN st8Lgytqqcx, Usha [id number] Severino, RN RN lr8Ldkx, Olivia, RN RN sw2 Name Value Range Interpretation Code Description Data Stephanie rce(s) Supporting Document(s) ID Date Data Source [id number] 04/17/2021 10:05:00 AM EDT [facility] Name Value Range Interpretation Code Description Data Stephanie rce(s) Supporting Document(s) Respiratory specimen severe acute respir atory syndrome coronavirus 2 (SARS-CoV-2) RNA Negative (qualifier value) [facility] This lab was ordered by [facility] and reported by . ID Date Data Source [id number] 04/17/2021 10:35:00 AM EDT [facility] Name Value Range Interpretation Code Description Data Stephanie rce(s) Supporting Document(s) SARS-CoV-2 RNA Negative Normal (applies to non-numeric r esults) [facility] Negative results should be treated as pr [...] Certificate of Accreditation. Factsheets for healthcare providers: https://www.fda.gov/media/059139/download Factsheets for patients: https://www.fda.gov/media/002320/download The ID NOW Instrument is a rapid molecular in vitro diagnostic test utilizing an isothermal nucleic acid amplification technology intended for the qualitative detection of nucleic acid from the SARS-CoV-2 viral RNA. THIS IS A STATE REPORTABLE COMMUNICABLE DISEASE. Manual entry verified by Megan Murphy 04/17/21 1034 ID Date Data Source [id number] 04/17/2021 10:56:00 AM T [facility] Name Value Range Interpretation Code Description Data Stephanie rce(s) Supporting Document(s) HCG,Ur Negative Normal (applies to non-numeric results) [facility] ID Date Data Source [id number] 04/17/2021 02:47:00 AM [facility] Name Value Range Interpretation Code Description Data Stephanie rce(s) Supporting Document(s) UDS Benzodiazepines Screen Negative Normal (applies to n on-numeric results) [facility] UDS Cocaine Screen Negative Normal (applies to non-numer ic results) [facility] UDS Ampetamine Screen Negative Normal (applies to non-nu meric results) [facility] UDS Cannabinoids Screen Negative Normal (applies to non- numeric results) [facility] UDS Opiates Screen Negative Normal (applies to non-numer ic results) [facility] UDS Barbiturates Screen Negative Normal (applies to non- numeric results) [facility] Threshold Levels Benzodiazepine 200 ng/mL Cocaine 300 ng/mL Amphetamines 1000 ng/mL Cannabinoids (THC) 50 ng/mL Opiates 300 ng/mL Barbiturates 200 ng/mL All positive findings are presumptive and unconfirmed. Confirmation of positive results are performed only at request of provider. Unconfirmed results must not be used for non-medical purposes (i.e. preemployment and legal purposes) ID Date Data Source [id number] 04/17/2021 02:46:00 AM EDT [facility] Collected By: Nurse Ronits: JOANA Time Collected: 214 Collected By: Nurse Ronits: JOANA Time Collected: 214 Name Value Range Interpretation Code Description Data Stephanie rce(s) Supporting Document(s) Color,Urine Colorl-Dk Y Normal (applies to non-numeric res ults) [facility] Clarity,Urine Clear Normal (applies to non-numeric re sults) [facility] Specific Borden,Urine 1.005-1.030 [facility] pH,Urine 5.0-8.0 Normal (applies to non-numeric resul ts) [facility] Protein,Urine Negative Normal (applies to non-numeric re sults) [facility] Glucose,Urine Negative Normal (applies to non-numeric re sults) [facility] Ketones,Urine Negative Normal (applies to non-numeric re sults) [facility] Blood,[facility] Negative [facility] Bil[facility],Urine Negative [facility] pital Urobilinogen,Urine 0.2-1.0 Normal (applies to non-numer ic results) [facility] Leukocyte Esterase,Urine Negative [facility] Nitrite,Urine Negative Normal (applies to non-numeric re sults) [facility] ID Date Data Source [id number] 04/17/2021 02:46:00 AM EDT [facility] Collected By: Nurse Initials: JOANA Time Collected: 214 Collected By: Nurse Initials: JOANA Time Collected: 214 Name Value Range Interpretation Code Description Data [facility] rce(s) Supporting Document(s) RBC,Urine None Seen [facility] WBC,Urine None Seen [facility] Casts,Urine None Seen Normal (applies to non-numeric resu lts) [facility] Squamous Cells,Urine None Seen [facility] Amorphous Sediment,Urine None Seen [facility] Bacteria,Urine None Seen [facility] ital ID Date Data Source [id number] 04/17/2021 02:29:00 AM EDT [facility] Name Value Range Interpretation Code Description Data Stephanie rce(s) Supporting Document(s) Sodium 139 mmol/L 136-145 Normal (applies to non-numeric resul ts) [facility] Potassium 3.5-5.1 Below low normal [facility] spital Chloride 102 mmol/L 98-107 Normal (applies to non-numeric resul ts) [facility] Carbon Dioxide CO2 21-32 Normal (applies to non-numer ic results) [facility] Anion Gap 5.0-16.0 Normal (applies to non-numeric resul ts) [facility] BUN 12 mg/dL 7-18 Normal (applies to non-numeric results) [facility] Creatinine,Serum 0.7-1.2 Normal (applies to non-numeric results) [facility] GFR >60 Normal (applies to non-numeric results) [facility] Glucose Level 99 mg/dL 60-99 Normal (applies to non-numeric re sults) [facility] Reference range is only applicable when patient is fasting Note the following drug interference: Sulfasalazine Sulfapyridine Can see falsely depressed Can see falsely elevated result with up to 17% results with up to 11% decrease in measurement increase in measurement Recommend patients be collected for this test prior to administration of either drug. Calcium 8.5-10.1 Normal (applies to non-numeric resul ts) [facility] Bilirubin,Total 0.1-1.9 Normal (applies to non-numeric results) [facility] SGOT(AST) 26 U/L 15-37 Normal (applies to non-numeric resul ts) [facility] Note the following drug interference: Sulfasalazine Sulfapyridine Can see falsely depressed Can see falsely elevated result with up to 10% results with up to 10% decrease in measurement increase in measurement Recommend patients be collected for this test prior to administration of either drug. SGPT(ALT) 45 U/L 12-78 Normal (applies to non-numeric resul ts) [facility] Note the following drug interference: Sulfasalazine Sulfapyridine Can see falsely depressed Can see falsely elevated result with up to 29% results with up to 10% decrease in measurement increase in measurement Recommend patients be collected for this test prior to administration of either drug. Alkaline Phosphatase 133 U/L 38-126 Above high normal [facility] can increase Alkaline Phosp le vels up to 2 times the normal adult value. Normal values for children and adolescents are 2 to 3 times the normal adult value. Total Protein 6.0-8.2 Normal (applies to non-numeric re sults) [facility] Albumin Level 3.4-5.0 Normal (applies to non-numeric re sults) [facility] ID Date Data Source [id number] 04/17/2021 02:29:00 AM [facility] Name Value Range Interpretation Code Description Data Stephanie rce(s) Supporting Document(s) Salicylate 2.8-20.0 Below low normal [facility] ID Date Data Source [id number] [facility] Value [facility] Interpretation Code Description Data Stephanie rce(s) Supporting Document(s) Troponin I 0.000-0.056 Normal (applies to non-numeric resu lts) [facility] ID Date Data Source [id number] 04/17/2021 02:29:00 AM [facility] Name Value Range Interpretation Code Description Data Stephanie rce(s) Supporting Document(s) Acetaminophen 10.0-30.0 Below low normal [facility] ID Date Data Source [id number] 04/17/2021 02:29:00 AM EDT [facility] Name Value Range Interpretation Code Description Data Stephanie rce(s) Supporting Document(s) Magnesium 1.8-2.4 Normal (applies to non-numeric resul ts) [facility] ID Date Data Source [id number] 04/17/2021 02:28:00 AM EDT [facility] Name Value Range Interpretation Code Description Data Stephanie rce(s) Supporting Document(s) Ethanol Less than 10.0 Normal (applies to non-numeric r esults) [facility] ID Date Data Source [id number] 04/17/2021 02:07:00 AM EDT [facility] Name Value Range Interpretation Code Description Data Stephanie rce(s) Supporting Document(s) White Blood Count 3.5-10.5 Normal (applies to non-numeri c results) [facility] Red Blood Count 3.90-5.00 Normal (applies to non-numeric results) [facility] Hemoglobin 12.0-15.5 Normal (applies to non-numeric resul ts) [facility] Hematocrit 34.9-44.5 Normal (applies to non-numeric resul ts) [facility] Mean Corpuscular Volume 81.2-95.1 Normal (applies to non- numeric results) [facility] Mean Corpuscular Hgb 25.6-32.2 Normal (applies to non-num deena results) [facility] Mean Corpuscular Hgb Conc 32.0-36.0 Normal (applies to no n-numeric results) [facility] Red Cell Distribution Width 11.9-15.5 Normal (appli es to non-numeric results) [facility] Platelet Count 285 x10 3/uL 150-450 Normal (applies to non-numeric results) [facility] Mean Platelet Volume 9.4-12.4 Normal (applies to non-num deena results) [facility] Neutrophils% (Auto) 31.0-71.0 Normal (applies to non-nume frank results) [facility] Lymphocytes% (Auto) 20.0-55.0 Normal (applies to non-nume frank results) [facility] Monocytes% (Auto) 4.0-12.0 Normal (applies to non-numeri c results) [facility] Eosinophils% (Auto) 1.0-8.0 Normal (applies to non-nume frank results) [facility] Basophils% (Auto) 0.0-2.0 Normal (applies to non-numeri c results) [facility] Immature Granulocytes% (Auto) 0.0-2.0 Normal (alexander lies to non-numeric results) [facility] Neutrophils# (Auto) 1.50-6.20 Above high normal [facility] Lymphocytes# (Auto) 1.20-4.00 Normal (applies to non-nume frank results) [facility] Monocytes# (Auto) 0.00-0.90 Normal (applies to non-numeri c results) [facility] Eosinophils# (Auto) 0.00-0.50 Normal (applies to non-nume frank results) [facility] Basophils# (Auto) 0.00-0.20 Normal (applies to non-numeri c results) [facility] Immature Granulocytes# (Auto) 0.00-7.00 No rmal (applies to non-numeric results) [facility] ID Date Data Source [id number] 04/14/2021 03:02:00 PM EDT [address] CONSULTPATIENT NAME: YARELI HATCH MR#: [id number] PHYSICIAN:AUTHOR: Surendra SMITH,P. DATE: RM#: ERPATIENT : [...] her suicidal.So, then she was taken to [facility] in [facility]. While she was in the [facility],she claims she escaped from the hospital at which point a pickup order wasissued then [facility] was [facility]. 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 [employer] I found her to be not [...] Name Value Range Interpretation Code Description Data [facility] rce(s) Supporting Document(s) ID Date Data Source [id number] 04/13/2021 10:06:00 PM EDT [facility] Name Value Range Interpretation Code Description Data [facility] rce(s) Supporting Document(s) WBC 11.79 x10E3/uL 4.0-10.5 [facility] RBC 4.27 x10E6/uL 4.20-5.40 [facility] Hemoglobin 12.5 g/dL 12.0-16.0 [facility] Hematocrit 37.7 % 37.0-47.0 [facility] MCV 88.3 fL 81.0-99.0 [facility] MCH 29.3 pg 27.0-31.0 [facility] MCHC 33.2 g/dL 32.7-35.6 [facility] RDW 12.4 % 11.5-14.0 [facility] Platelet count 262 x10E3/uL 150-450 [facility] ital MPV 10.3 fl 6.9-9.5 H [facility] Neutrophils 75.6 % 34-64 [facility] Lymphocytes 17.2 % 25-45 L [facility] Monocytes 5.9 % 1.7-10.6 [facility] Eosinophils 0.6 % 0.4-7.0 [facility] Basophils 0.3 % 0.1-2.0 [facility] Imm. Gran. 0.4 % 0.1-2.0 [facility] Abs. Neutro. 8.92 x10E3/uL 1.2-7.6 [facility] Abs. Lymph. 2.03 x10E3/uL 1.0-3.5 [facility] Abs. [place]. 0.69 x10E3/uL 0.1-1.0 [facility] Abs. Eosin. 0.07 x10E3/uL 0.1-0.7 [facility] Abs. Baso. 0.03 x10E3/uL 0.0-0.1 [facility] Abs. Imm. Gran. 0.05 x10E3/uL 0.0-0.1 [facility] spital ANRBC% 0 % 0 [facility] ID Date Data Source [id number] 04/13/2021 09:38:00 PM EDT [facility] Name Value Range Interpretation Code Description Data Stephanie rce(s) Supporting Document(s) GLU 95 mg/dL 70-110 [facility] Patients taking Sulfasalazine may have f alsely depressedGlucose levels. Patients taking Sulfapyridine may havefalsely elevated Glucose levels. Patients should be drawnfor Glucose before the initial administration of eitherdrug. BUN 14 mg/dL 7-23 [facility] CRE 0.672 mg/dL 0.500-1.300 [facility] GFR > 60 mL/min [facility] CHLORIDE 110 mmol/L 99-110 [facility] NA 141 mmol/L 136-147 [facility] POTASSIUM 4.5 mmol/L 3.5-5.1 [facility] TCO2 23 mmol/L 20-33 [facility] ANION GAP 12.5 10.0-20.0 [facility] CA 8.6 mg/dL 8.3-10.7 [facility] ALKALINE PHOS 125 U/L 45-117 [facility] TP 8.0 g/dL 6.0-7.8 [facility] ALB 3.6 g/dL 3.5-5.0 [facility] ESRD Dialysis patient Albumin reference range: 2.9-4.4 g/dL GL 4.4 g/dL 2.3-3.5 [facility] A/G 0.8 1.0-2.5 [facility] T. BILIRUBIN 0.3 mg/dL 0.1-1.1 [facility] [employer] Total Bilirubin is n ot recommended forpatients undergoing treatment with eltrombopag (Promacta)due to the potential for falsely elevated results. ALTI 51 U/L 6-54 [facility] Patients taking Sulfasalazine and/or Sul fapyridine may havefalsely depressed ALT levels. Patients should be drawn forALT before the initial administration of either drug. AST 32 U/L 6-38 [facility] Patients taking Sulfasalazine and/or Sul fapyridine may havefalsely depressed AST levels. Patients should be drawn forAST before the initial administration of either drug. ID Date Data Source [id number] 04/13/2021 09:38:00 PM EDT [facility] Name Value Range Interpretation Code Description Data Stephanie rce(s) Supporting Document(s) SALICYLATE < 1.7 mg/dL 0.0-20.0 N [facility] ID Date Data Source [id number] 04/13/2021 09:38:00 PM EDT [facility] Name Value Range Interpretation Code Description Data Stephanie rce(s) Supporting Document(s) ACETAMINOPHEN < 2.0 ug/mL 0[facility] Date Data Source [id number] 04/13/2021 09:38:00 PM EDT [facility] Name Value Range Interpretation Code Description Data Stephanie rce(s) Supporting Document(s) ETOH 0.007 g/dL NONE DETECTED [facility] ID Date Data Source [id number] 04/13/2021 08:47:00 PM EDT [facility] Name Value Range Interpretation Code Description Data Stephanie rce(s) Supporting Document(s) LCOVID-19, CORDELL NEGATIVE [facility] reported by [facility]. ID Date Data Source [id number] 04/13/2021 09:21:00 PM EDT [facility] Name Value Range Interpretation Code Description Data Stephanie rce(s) Supporting Document(s) COVID-19, CORDELL NEGATIVE NEGATIVE [facility] Methodology: Isothermal Nucleic Acid Amp lification [...] Emergency Use Authorization. ID Date Data Source [id number] 04/13/2021 09:48:00 PM EDT [facility] Name Value Range Interpretation Code Description Data Stephanie rce(s) Supporting Document(s) PCP VISTA NEG NEGATIVE [facility] MINIMUM LEVEL OF DETECTION IS 25 ng/ml BENZODIAZEPINES NEG NEGATIVE [facility] MINIMUM LEVEL OF DETECTION IS 200 ng/ml COCAINE VISTA NEG NEGATIVE [facility] MINIMUM LEVEL OF DETECTION IS 300 ng/ml AMPHETAMINES NEG NEGATIVE [facility] MINIMUM LEVEL OF DETECTION IS 1000 ng/ml BARBITURATES NEG NEGATIVE [facility] CUTOFF CONCENTRATION IS 200 ng/ml CANNABINOIDS NEG NEGATIVE [facility] CUTOFF CONCENTRATION IS 50 ng/ml METHADONE VISTA NEG NEGATIVE [facility] MINIMUM LEVEL OF DETECTION IS 300 ng/ml OPIATE VISTA NEG NEGATIVE [facility] MINIMUM DETECTION LEVEL IS 300 ng/ml ID Date Data Source [id number] 04/13/2021 09:38:00 PM EDT [facility] [place] Name Value Range Interpretation Code Description Data Stephanie rce(s) Supporting Document(s) URINE COLOR Yellow [facility] UAPR Turbid [facility] UGLU Negative NEGATIVE [facility] URINE BILIRUBIN Negative NEGATIVE [facility] UKET Negative NEGATIVE [facility] USG 1.017 1.010-1.025 [facility] UBLO Negative NEGATIVE [facility] UpH 7.5 5.0-8.0 [facility] UPRO Negative Negative [facility] UUB 1.0 mg/dL 0.2-1.0 [facility] UNIT Negative Negative [facility] ULEU Trace Negative [facility] ID Date Data Source [id number] 04/13/2021 09:38:00 PM EDT [facility] [place] Name Value Range Interpretation Code Description Data Stephanie rce(s) Supporting Document(s) URINE RBC 0-2 RBCs/HPF NONE SEEN [facility] URINE WBC 0-2 WBCs/HPF NONE SEEN [facility] URINE BACTERIA Few NONE SEEN [facility] URINE EPI. Many NONE SEEN [facility] URINE CRYSTAL MANY AMORPHOUS NONE SEEN [facility] pital ID Date Data Source [id number] 04/13/2021 09:38:00 PM EDT [facility] [place] Name Value Range Interpretation Code Description Data Stephanie rce(s) Supporting Document(s) HCG QUAL URINE Negative Negative [facility] ID Date Data Source [id number] 04/14/2021 04:43:00 PM EDT [facility] DocumentationClaxlexy-Naveen chopra CenterName: Yareli Mejiage: 20 yrsSex: FemaleDOB: 2000MRN: [id number] Date: 04/13/2021Time: 20:28Account#: [id number] MD: NONE, - Per PatientED Physician Santiago RajanDiszach Summary:04/14/21 16:06Discharge OrderedLocation: Home Self Qsevqk9Empqtkl: vebaxplob4Rwziqruf: are jpcaqczbgqt6Memxjqodh: Krgkcjyh3Uyygsgxbj- Major depressive disorder, recurrent, nxrrlrfskjfcj2Obhaznej:rf2- With: Private Physician- When: 2 - 3 days- Reason: Recheck today's complaints, Continuance of careDischarge Instructions:- Discharge Summary Acdzvfn88- WPGUWWOHHUxu4Poapi:- Medication Reconciliationrf2- Medication Reconciliation Form - [address] [place], [place] [address]Kmaylp2OSU:04/320:42 This 20 yrs old White Female presents to ER via Police with complaints ofPsych Problem.th420:42 Associated signs and symptoms: Pertinent negatives: abdominal pain, chestpain, fever, xd7lckavnrh, nausea, shortness of breath, vomiting. Patient is brought in [facility] evaluation. Patient is well-known to the ER. She has been seenmany timesin the past for the same. She was last here on April 09 and was admitted atthattime. Patient reports that she [facility] the lastcouple dayswith suicidal [...] Eyes: Negative for acute changes.ENT: Negative for qu1jmdxd discharge, rhinorrhea, sinus congestion. Neck: Negative for [...] 53.26 (149.69 kg, 167.64 cm)jw523:48 Pain Scale: Voblezx183/0411:45 Pain Scale: Naiubpb484:43 Pain Scale: AdulttlmMDM:04/320:34 Patient medically screened.th410/0406:41 Data reviewed: vital signs, nurses notes, lab test result(s). ED course:Patient vq8vyvmngno stable in the ER. Patient here for mental health evaluation as above.Case isendorsed to Dr. Rajan at change of shift pending PSA evaluation disposition.Patient ismedically clear and has been cooperative..07:32 Data reviewed: lab test result(s), CBC, drug level(s), acetaminophen,alcohol, db5njyueqaqlx, electrolytes, hepatic panel, urinalysis, urine drug screen,COVID-19.Transition of care: Care assumed from Nils Argueta MD.16:06 ED course: Patient being recommended for discharge home by Dr. Patten with adiagnosis of ox6npnaqzbrfa.04/320:39 Order name: Acetaminophen Level; Complete Time: 21:96pq6720:39 Order name: CBC with diff; Complete Time: 07:69ag129/0407:33 Interpretation: Abnormal: WBC 11.79; Mild leukocytosis.rf0:39 Order name: CMP; Complete Time: 21:84uu7870:39 Order name: COVID-19 PROFILE+LAB; Complete Time: ::39 Order name: ETOH; Complete Time: ::39 Order name: Glucose; Complete Time: 07:08vn037/0407:32 Interpretation: Within normal limits.rf:39 Order name: Salicylate Level; Complete Time: ::39 Order name: Triage - Drug Screen; Complete Time: ::39 Order name: UA; Complete Time: :35kt677:39 Order name: Urine HCG Qualitative; Complete Time: ::39 Order name: Diet - Mental Health Tray (call dietary); Complete Time:23:49 :39 Order name: Belongings List; Complete Time: 05::39 Order name: Document Weight and Height for BMI; Complete Time: 23:41ld2550:39 Order name: Mental Health Evaluation; Complete Time: 23::39 Order name: Mental Health Level 3; Complete Time: 23::39 Order name: VS q shift; Complete Time: 23::49 Order name: Medically Cleared for Eval by-Psychosocial, Bindery Helper (.PSA)jk2Mectsdwtl Medications:04/322:16 Drug: Ibuprofen 600 mg [ibuprofen 600 mg tablet (1 tabs)] Route: PO;kk223:48 Follow up: Pain 09/18 Jnhsqiv597/0410:16 Drug: Propranolol 10 mg Route: PO;ef110:46 Follow up: Response: No adverse ochrpfotno382:16 Drug: sertraline 50 mg Route: PO;ef110:46 Follow up: Response: No adverse fegwmdftrn601:16 Drug: Topiramate 75 mg Route: PO;ef110:45 Follow up: Response: No adverse cknzcxfjac977:16 Drug: Loratadine 10 mg Route: PO;ef110:45 Follow up: Response: No adverse bublgljoot953:17 Drug: ARIPiprazole 10 mg Route: PO;ef110:46 Follow up: Response: No adverse dkdwodoaga707:45 Drug: Acetaminophen Tablet 650 mg Route: PO;ef111:45 Follow up: Pain 0/10 Gwfayzv3Tekmdgsjnu:Disp atcZakia Cormier RN RN al3MdmwvhjNils bansal MD MD zo6Dbfdx, JOSE LUIS Bucio RN ja2NmmdzssmAmi dang RN RN eu7Gbgvu, MD SARAH Henderson rf2 Name Value Range Interpretation Code Description Data Stephanie rce(s) Supporting Document(s) ID Date Data Source [id number] 04/14/2021 04:43:00 PM EDT [facility] terName: Yareli [place]Age: 20 yrsSex: FemaleDOB: 2000MRN: [id number] Date: 04/13/2021Time: 20:28Account#: [id number] MD: NONE, - Per PatientDiagnosis: Major depressive disorder, recurrent, unspecifiedPresentation:04/320:29 Presenting complaint: Patient states: Was at [facility] ideation. um9Nzaxbax to this ED by [facility]. Patient reports that she escaped from the [facility]. International Travel Fever No. Coronavirus Screening: Have you beendiagnosed with COVID-19 in the past 30 days? no Are you currently on quarantinebyPlic Health? no Flu-like symptoms reported in the last 14 days: no. Have youhadclose contact with confirmed or suspected COVID-19 case? no Do you live in asettingwhere a large of amount of people live, such as senior living, family care,alf, etc?yes. Have you traveled to a location with widespread or ongoing COVID-19communityspread or outside of [facility]? no Have you traveled internationally or hadcontact withsomeone that has traveled and has been ill in the past 3 weeks? no Have youreceivedthe COVID vaccine? Yes Sophia x 1 dose. Communicable Disease Screen: Negativeforfever>/= 100 degrees Fahrenheit. Communicable disease screen is negative. (-)rash orunusual skin lesion (-) travel/contact with traveler (-) respiratory symptoms.Communication Speaks Nigerien? Yes, is preferred language.20:29 Acuity: Triage 4cw571:29 Method Of Arrival: Bspckcep177:30 Acuity Assignment: Triage 2hv3Siwjkl Assessment:20:31 General: Appears in no apparent distress, [...] 400 mg intramuscular suspension,extended release syringe 400 mmysccv99 days3. ibuprofen 400 mg Oral tablet 1 [...] threats or abuse. Denies injuries from another.Nutritional al8vsaxqbrrm: No deficits noted. Offer of HIV testing: [...] appears in no apparent distress at this time.dk5Agqqdyeiyiqw:04/322:01 Mental health consult is initiated at 22:01.sm822:12 SAFE Act Report Not Completed. Intervention: Observation Level 3.Referral Information: po7Edqvszbsnf referral is generated by a police agency: [employer]. The patient wasreferred forevaluation because suicidal ideations.22:23 Subjective: The patients chief complaint is Pt [place] the ED by [place] vc4sclesbscl. As PSA was going into her room pt was tapping her head off the wall.Pt wasdischarged from our unit on Wednesday (04/11), she then went to [facility] late Wednesday night. Pt had [facility] out [facility] [...] has a long [facility]. She has a history of Anxiety, Bipolar, Depression, andBPD. Pt hasa history of reported suicide attempts by overdosing. Pt denies hallucinations.Pt doesnot present with any delusional thoughts. Delusions are denied, Hallucinationsaredenied. Patient's mood is depressed, Having thoughts of suicide. Deniessuicidal plan.homicide: denies plan. Homicidal thoughts directed towards mother.22:30 Narrative PSA spoke to Dulce at [facility] ([phone]). She states that itis "the same sm8old thing" as to why the pt is in the ED. She states that the pt was dischargedfromour unit then went to [facility] for suicidal ideations. She states that thept madeit back to them in scrubs and stated that she asked Cholo what wouldhappen if shewalked out which they told her that they would have to call the police. Policethenshowed up at [facility] and brought her to us.22:33 Patient reports history of anxiety, Bipolar Disorder, Depression, self-mutilation, vo0qvqwczr attempt: pt reports multiple by overdosing Mental Health Admissions:multipletimes at multiple facilities Current Outpatient Mental Health Services:Psychiatrist [facility] [place]. Living Environment: Family / HomeSupport: [facility]. The patient is single. Detox /RehabAdmissions: None. Current Outpt Alcohol or Substance Abuse Services: None.22:34 Patient presents to Emergency Department with the following symptomswithin the past 2 sz6stoqh: suicidal ideation with no plan. Patient presents [...] patient status is not currently needed orappropriate. by2Tgdxdposttuo: Psych MD informed of patient's status at 22:30, ED MD notified ofpatients status at 22:46. Disposition: Medically cleared for disposition by Meet.Psychiatric Consult is performed by phone with Dr David Gray-HILDA [facility]. Legal Status: Patient's legal statuswill beDirectory of Community Services: 37. Commitment papers are completed. DSM-VDX [place] Idiagnosis: Depression, Unspecified. Insurance Pre-Certification: Not Required.IMHUAdmission [...] Awaiting referral hospitalacceptance.The patient is not a banking services advisor or dependent. [place] SuicideSeverityRating Scale: Suicidal Ideation Rating 2; Intensity of Ideations Rating 23;SuicidalBehavior Rating 0.04/416:02 Narrative Pt will be discharged home per Dr. Patten. Pt can [facility] and denies am11SI/HI. Pt will follow up with outpatient services. Pt provided contactinformation forPSA and [employer]. Pt will come to the ED if problems continue or worsen.Psych:04/320:50 Subjective: Delusions are denied, Hallucinations are denied Havingthoughts of suicide. xq9Iqfttl suicidal plan. Objective: Patient is cooperative, Speech [...] 53.26 (149.69 kg, 167.64 cm)jw523:48 Pain Scale: Lbwbelb059/0411:45 Pain Scale: Kdzucdc428:43 Pain Scale: AdulttlmED Course:04/320:29 Patient arrived in [...] given.ef107:32 Attending Physician role handed off by iNls Argueta, KKxl607:32 Santiago Rajan MD is Attending Physician.rf208:16 Diet tray given.vp8Arrozidbzreo Medications:04/322:16 Drug: Ibuprofen 600 mg [ibuprofen 600 mg tablet (1 tabs)] Route: PO;kk223:48 Follow up: Pain 3/10 Bfcyooz844/0410:16 Drug: Propranolol 10 mg Route: PO;ef110:46 Follow up: Response: No adverse vwyywpclhp783:16 Drug: sertraline 50 mg Route: PO;ef110:46 Follow up: Response: No adverse tuvbehxyrw594:16 Drug: Topiramate 75 mg Route: PO;ef110:45 Follow up: Response: No adverse beqwglcjyr050:16 Drug: Loratadine 10 mg Route: PO;ef110:45 Follow up: Response: No adverse erfdhgoqyz623:17 Drug: ARIPiprazole 10 mg Route: PO;ef110:46 Follow up: Response: No adverse sztathkdjv370:45 Drug: Acetaminophen Tablet 650 mg Route: PO;ef111:45 Follow up: Pain 0/10 Xasuugi3Bvphhdt:16:06 Discharge ordered by .rf216:43 Condition: stable.tlm16:43 Discharge inst ructions given to patient, Instructed on dischargeinstructions, followup and referral plans. Demonstrated understanding of instructions.16:43 Discharge Assessment: Patient awake, alert and oriented x 3. Nocognitive and/orfunctional deficits noted. Patient verbalized understanding of dispositioninstructions. Patient verbalized understanding of disposition instructions.Patient hasno functional deficits.16:43 Patient left the ED.tlmSignatures:Magaly Gray, RN RN tlmKnightZakia, RN RN ou1EsrvnbqNils Argueta MD MD qg6GugyaFortunato humphrey, RN RN zl2TsfsqotoAmi dang, RN RN uw0HipqIna Jack am11Measheaw, Usha sh6Ojfau, MD SARAH Henderson fg2Qjldzhzospx: (The following items were deleted from the [...] Pt presents to the EDby [employer] for tr7ecjjwyra ideations. A s PSA was going into her room pt was tapping her head offthewall. Pt was discharged from our unit on Wednesday (04/11), [facility] Pt had walked out of [facility] back to [facility] where the police picked her up [...] rce(s) Supporting Document(s) ID Date Data Source [id number] 04/12/2021 04:52:00 AM EDT [facility] Name Value Range Interpretation Code Description Data Stephanie rce(s) Supporting Document(s) Sodium 138 mmol/L 136-145 Normal (applies to non-numeric resul ts) [facility] Potassium 3.5-5.1 Normal (applies to non-numeric resul ts) [facility] Chloride 102 mmol/L 98-107 Normal (applies to non-numeric resul ts) [facility] Carbon Dioxide CO2 21-32 Normal (applies to non-numer ic results) [facility] Anion Gap 5.0-16.0 Normal (applies to non-numeric resul ts) [facility] BUN 13 mg/dL 7-18 Normal (applies to non-numeric results) [facility] Creatinine,Serum 0.7-1.2 Normal (applies to non-numeric results) [facility] GFR >60 Normal (applies to non-numeric results) [facility] Glucose Level 97 mg/dL 60-99 Normal (applies to non-numeric re sults) [facility] Reference range is only applicable when patient is fasting Note the following drug interference: Sulfasalazine Sulfapyridine Can see falsely depressed Can see falsely elevated result with up to 17% results with up to 11% decrease in measurement increase in measurement Recommend patients be collected for this test prior to administration of either drug. Calcium 8.5-10.1 Normal (applies to non-numeric resul ts) [facility] Bilirubin,Total 0.1-1.9 Normal (applies to non-numeric results) [facility] SGOT(AST) 30 U/L 15-37 Normal (applies to non-numeric resul ts) [facility] Note the following drug interference: Sulfasalazine Sulfapyridine Can see falsely depressed Can see falsely elevated result with up to 10% results with up to 10% decrease in measurement increase in measurement Recommend patients be collected for this test prior to administration of either drug. SGPT(ALT) 54 U/L 12-78 Normal (applies to non-numeric resul ts) [facility] Note the following drug interference: Sulfasalazine Sulfapyridine Can see falsely depressed Can see falsely elevated result with up to 29% results with up to 10% decrease in measurement increase in measurement Recommend patients be collected for this test prior to administration of either drug. Alkaline Phosphatase 130 U/L 38-126 Above high normal [facility] can increase Alkaline Phosp le vels up to 2 times the normal adult value. Normal values for children and adolescents are 2 to 3 times the normal adult value. Total Protein 6.0-8.2 Above high normal [facility] Albumin Level 3.4-5.0 Normal (applies to non-numeric re sults) [facility] ID Date Data Source [id number] 04/12/2021 04:52:00 AM EDT [facility] Name Value Range Interpretation Code Description Data Stephanie rce(s) Supporting Document(s) Acetaminophen 10.0-30.0 Below low normal [facility] ID Date Data Source [id number] 04/12/2021 04:52:00 AM EDT [facility] Name Value Range Interpretation Code Description Data Stephanie rce(s) Supporting Document(s) Magnesium 1.8-2.4 Normal (applies to non-numeric resul ts) [facility] ID Date Data Source [id number] 04/12/2021 04:52:00 AM EDT [facility] Name Value Range Interpretation Code Description Data Stephanie rce(s) Supporting Document(s) Troponin I 0.000-0.056 Normal (applies to non-numeric resu lts) [facility] ID Date Data Source [id number] 04/12/2021 04:52:00 AM EDT [facility] Name Value Range Interpretation Code Description Data Stephanie rce(s) Supporting Document(s) Salicylate 2.8-20.0 Below low normal [facility] ID Date Data Source [id number] 04/12/2021 04:51:00 AM EDT [facility] Name Value Range Interpretation Code Description Data Stephanie rce(s) Supporting Document(s) Ethanol Less than 10.0 Normal (applies to non-numeric r esults) [facility] ID Date Data Source [id number] 04/12/2021 04:23:00 AM EDT [facility] Name Value Range Interpretation Code Description Data Stephanie rce(s) Supporting Document(s) White Blood Count 3.5-10.5 Normal (applies to non-numeri c results) [facility] Red Blood Count 3.90-5.00 Normal (applies to non-numeric results) [facility] Hemoglobin 12.0-15.5 Normal (applies to non-numeric resul ts) [facility] Hematocrit 34.9-44.5 Normal (applies to non-numeric resul ts) [facility] Mean Corpuscular Volume 81.2-95.1 Normal (applies to non- numeric results) [facility] Mean Corpuscular Hgb 25.6-32.2 Normal (applies to non-num deena results) [facility] Mean Corpuscular Hgb Conc 32.0-36.0 Normal (applies to no n-numeric results) [facility] Red Cell Distribution Width 11.9-15.5 Normal (appli es to non-numeric results) [facility] Platelet Count 306 x10 3/uL 150-450 Normal (applies to non-numeric results) [facility] Mean Platelet Volume 9.4-12.4 Normal (applies to non-num deena results) [facility] Neutrophils% (Auto) 31.0-71.0 Normal (applies to non-nume frank results) [facility] Lymphocytes% (Auto) 20.0-55.0 Normal (applies to non-nume frank results) [facility] Monocytes% (Auto) 4.0-12.0 Normal (applies to non-numeri c results) [facility] Eosinophils% (Auto) 1.0-8.0 Normal (applies to non-nume frank results) [facility] Basophils% (Auto) 0.0-2.0 Normal (applies to non-numeri c results) [facility] Immature Granulocytes% (Auto) 0.0-2.0 Normal (alexander lies to non-numeric results) [facility] Neutrophils# (Auto) 1.50-6.20 Above high normal [facility] Lymphocytes# (Auto) 1.20-4.00 Normal (applies to non-nume frank results) [facility] Monocytes# (Auto) 0.00-0.90 Normal (applies to non-numeri c results) [facility] Eosinophils# (Auto) 0.00-0.50 Normal (applies to non-nume frank results) [facility] Basophils# (Auto) 0.00-0.20 Normal (applies to non-numeri c results) [facility] Immature Granulocytes# (Auto) 0.00-7.00 No rmal (applies to non-numeric results) [facility] ID Date Data Source [id number] 04/12/2021 03:50:00 AM EDT [facility] Name Value Range Interpretation Code Description Data Stephanie rce(s) Supporting Document(s) Respiratory specimen severe acute respir atory syndrome coronavirus 2 (SARS-CoV-2) RNA Not Detected [facility] This lab was ordered by [facility] and reported by . ID Date Data Source [id number] 04/12/2021 05:08:00 AM EDT [facility] Name Value Range Interpretation Code Description Data Stephanie rce(s) Supporting Document(s) RP Internal Control Passed Normal (applies to non-nume frank results) [facility] Adenovirus None Detect Normal (applies to non-numeric resu lts) [facility] Coronavirus 229E None Detect Normal (applies to non-numeri c results) [facility] Coronavirus HKU1 None Detect Normal (applies to non-numeri c results) [facility] Coronavirus NL63 None Detect Normal (applies to non-numeri c results) [facility] Coronavirus OC43 None Detect Normal (applies to non-numeri c results) [facility] SARS-CoV-2 Not Detect Normal (applies to non-numeric resul ts) [facility] Negative results do not preclude SARS-Co V-2 infection and should not be used as the sole basis for treatment or other patient management decisions. Negative results must be combined with clinical observations, patient history, and epidemiological information. Testing was performed using the [facility] real-time nested multiplexed PCR Respiratory Panel 2.1 [...] (applies to non-n umeric results) [facility] Rhino/Enterovirus None Detect Normal (applies to non-numer ic results) [facility] Influenza A None Detect Normal (applies to non-numeric res ults) [facility] Influenza B None Detect Normal (applies to non-numeric res ults) [facility] Parainfluenza Virus 1 None Detect Normal (applies to non-n umeric results) [facility] Parainfluenza Virus 2 None Detect Normal (applies to non-n umeric results) [facility] Parainfluenza Virus 3 None Detect Normal (applies to non-n umeric results) [facility] Parainfluenza Virus 4 None Detect Normal (applies to non-n umeric results) [facility] Respiratory Syncytial Virus None Detect Norm al (applies to non-numeric results) [facility] Bornvtella Parapertussis None Detect Normal (applies to non-numeric results) [facility] Bordetella Pertussis None Detect Normal (applies to non-nu meric results) [facility] Chlamydia Pneumoniae None Detect Normal (applies to non-nu meric results) [facility] Mycoplasma Pneumoniae None Detect Normal (applies to non-n umeric results) [facility] Methodology: Multiplexed PCR Refer ence Range: None detected ID Date Data Source [id number] 04/12/2021 04:42:00 AM EDT [facility] Collected By: Nurse Initials: cs Time Collected: 324 Collected By: Nurse Initials: cs Time Collected: 324 Name Value Range Interpretation Code Description Data Stephanie rce(s) Supporting Document(s) Color,Urine Colorl-Dk Y Normal (applies to non-numeric res ults) [facility] Clarity,Urine Clear [facility] [place] Specific [place],Urine 1.005-1.030 Normal (applies to non- numeric results) [facility] pH,Urine 5.0-8.0 Normal (applies to non-numeric resul ts) [facility] Protein,Urine Negative [facility] [place] Glucose,Urine Negative Normal (applies to non-numeric re sults) [facility] Ketones,Urine Negative [facility] [place] Blood,Urine Negative Normal (applies to non-numeric resu lts) [facility] Bilirubin,Urine Negative Normal (applies to non-numeric results) [facility] Urobilinogen,Urine 0.2-1.0 Normal (applies to non-numer ic results) [facility] Leukocyte Esterase,Urine Negative Normal (applies to non -numeric results) [facility] Nitrite,Urine Negative Normal (applies to non-numeric re sults) [facility] ID Date Data Source [id number] 04/12/2021 04:42:00 AM EDT [facility] Collected By: Nurse Initials: cs Time Collected: 324 Collected By: Nurse Initials: cs Time Collected: 324 Name Value Range Interpretation Code Description Data Stephanie rce(s) Supporting Document(s) RBC,Urine None Seen Normal (applies to non-numeric resul ts) [facility] WBC,Urine None Seen [facility] Casts,Urine None Seen Normal (applies to non-numeric resu lts) [facility] Squamous Cells,Urine None Seen [facility] Amorphous Sediment,Urine None Seen [facility] Bacteria,Urine None Seen [facility] ID Date Data Source [id number] 04/12/2021 04:32:00 AM EDT [facility] Name Value Range Interpretation Code Description Data Stephanie rce(s) Supporting Document(s) UDS Benzodiazepines Screen Negative Normal (applies to n on-numeric results) [facility] UDS Cocaine Screen Negative Normal (applies to non-numer ic results) [facility] UDS Ampetamine Screen Negative Normal (applies to non-nu meric results) [facility] UDS Cannabinoids Screen Negative Normal (applies to non- numeric results) [facility] UDS Opiates Screen Negative Normal (applies to non-numer ic results) [facility] UDS Barbiturates Screen Negative Normal (applies to non- numeric results) [facility] Threshold Levels Benzodiazepine 200 ng/mL Cocaine 300 ng/mL Amphetamines 1000 ng/mL Cannabinoids (THC) 50 ng/mL Opiates 300 ng/mL Barbiturates 200 ng/mL All positive findings are presumptive and unconfirmed. Confirmation of positive results are performed only at request of provider. Unconfirmed results must not be used for non-medical purposes (i.e. preemployment and legal purposes) ID Date Data Source [id number] 04/11/2021 01:49:00 PM EDT [address] DISCHARGE SUMMARYPATIENT NAME: YARELI HATCH MR#: [id number] PHYSICIAN: BOGDAN MACAIS MDAUTHOR: Colleen SMITH,Bogdan DATE: 04/09/21 #: [id number] DATE: 04/11/21HistoryIdentificationThis is a 22-ekxve-aun white female.Chief Complaint"I am having suicidal thoughts and anxiety."Reason for AdmissionPatient is well known to us. She presented to the ER with the complaint ofincreased suicidal ideations after an argument with her significant other. Shehas a history of suicidal ideations and multiple inpatient treatment. Patientcannot contract for safety. Hence, she was hospitalized.History of Presenting IllnessPatient was seen today along with the college scouting coordinator, Gloria, and a PAstudent from [facility]. She presented to the ER with [facility] due to patient contacting them stating with [...] hasn't beensleeping for 3 weeks.Patient was at [facility] since and transferred to [facility] and discharged. She states that she was in [facility] and[facility] there and has been [...] last hospitalization. [facility] [place]. She is on AOT since 01/09/21.Medical HistoryDenies [...] prefer to bedischarged back to [facility] as she is no longer feeling [...] She also [facility] and she would come [facility] into thehospital if needed as well. She also denies having any medical issues, andwanting to be seen by therapist and psychiatrist and [facility] She was also offered inpatient outpatient chemical [...] 240Continue taking these medications:IBUPROFEN (IBUPROFEN) 400 MG [id number] MILLIGRAM Orally EVERY 6 HOURS NEEDED as needed for HeadacheQty = 21Loratadine* (Claritin*) 10 MG CBAUSZ84 MILLIGRAM Orally DAILYDays = 30 Qty = 30PROPRANOLOL HCL (Inderal*) 10 MG SYYTEH87 MILLIGRAM Orally TWICE DAILYDays = 30 Qty = 60TOPIRAMATE (TOPAMAX) 25 MG NLXWGT28 MILLIGRAM Orally DAILYDays = 60 Qty = 30SERTRALINE (Zoloft*) 50 MG DKPVJH897 MILLIGRAM Orally DAILYDays = 30 Qty = 30MONTELUKAST SODIUM (MONTELUKAST) 10 MG EZIBZX26 MILLIGRAM Orally DAILYDays = 30 Qty = 30Aripiprazole* (Abilify*) 10 MG HJHKOG83 MILLIGRAM Orally DAILYPRAZOSIN HCL (PRAZOSIN HCL) 2 MG CAPSULE2 MILLIGRAM Orally AT BEDTIMEOlanzapine* (Zyprexa*) 5 MG TABLET5 MILLIGRAM Orally AT BEDTIMEAripiprazole (Abilify Maintena) 400 MG SUSER.ZTF433 MILLIGRAM Intramuscularly U61KXav = 1Instructions:last im inj received 04/03/21Discharge Activity: As toleratedDischarge diet: RegularFollow-upFollow up with your Primary care physicianFollow up with therapiest and psychiatristrecommended outpt chemical dependencyReferralsOrdered ReferralsSA[facility] [place] [address] [facility] up [phone]) on April 15 at9:[address] Giles.[facility] [place], [place] [id number] In person [facility](#[phone]) on April 18 at2:00 pm with Grayson.DATE SIGNED: 04/11/21 Electronically Melania dTIME SIGNED: 1353 BOGDAN MACIAS MD Name Value Range Interpretation Code Description Data Stephanie rce(s) Supporting Document(s) ID Date Data Source [id number] 04/11/2021 09:25:00 AM EDT [facility] [address] NAME: YARELI HATCH#: [id number] PHYSICIAN: HUBER VELAZQUEZ #: [id number] ADM. DATE: 04/09/21PATIENT : 00 DISCH. DATE: [50}DISCHARGE SUMMARYMHU discharge planNicotine Replacement TherapySmoking Status Current some day smokerPrescribed at discharge Rx offered, pt refusedAlcohol/Drug DisorderAlcohol or Drug Disorder counseling prescribedPersonal Care InstructionsDischarge Activity: As toleratedDischarge diet: RegularFollow Up CareFollow Up:Follow up with your Primary care physicianFollow up with therapiest and psychiatristrecommended outpt chemical dependencyPriority ItemsUrgent/Important items that need to be [facility] care follow-upappointmentDischarge InformationDISCHARGE INFORMATION* [facility] and allowing us toserve you* Our Goal is to provide the highest quality of care.* This discharge information is to help you better understand your diagnosisand medication* Avoid taking yqbp-sgv-ncdkujh medicines unless approved by your physician.* Take your medications as prescribed. DO NOT stop any medications unlessapproved first* Weigh yourself daily. Report any gain of 5 lbs in a week* 24 Hour Crisis HOTLINE available: Call Reachout at [phone]* Chem. Dependency: Walk in Clinics [place] ([phone]) and [place] ([phone]) anytime Wednesday thru Wednesday 8 to 10am. [place] ([phone]) anytimeWednesday thru Wednesday 8 to 10am. [facility] ([phone]) Wednesday or Wednesday from 8to 10am (Bring $30 to [facility]) SMOKIN G CESSATION* Smoking is dangerous to your health. It delays the healing process, andworks against your medications. Not smoking will improve your health* Our hospital participates with the Opt-to-Quit program. You will be contactedafter discharge by the [facility] Smoker's Quitline for support with tobaccocessation. You have the option once contacted to refuse this service.* You can also go online to www.Outsell. Free nicotine replacementsare available Attention* You should [...] rce(s) Supporting Document(s) ID Date Data Source [id number] 04/10/2021 01:59:00 PM EDT [address] HEALTH PROGRESS NOTEPATIENT NAME: YARELI HATCH PHYSICIAN: BOGDAN MACIAS MDAUTHOR: Colleen SMITH,DhruvADM. DATE: 04/09/21 MR#: [id number] NOTE DATE: 04/10/21 RM#: [id number] TIME: 1402 is a 28-glihe-ozq white female.CC/Hx Present Illness"I am having suicidal thoughts and anxiety."Events Since Last EntryPatient reported that she has been feeling better, she stated that she wouldlike to go back to [facility], she stated that she was dealing [...] rce(s) Supporting Document(s) ID Date Data Source [id number] 04/10/2021 07:18:00 AM EDT [address] HEALTH HISTORY AND PHYSICALPATIENT NAME: YARELI HATCH MR#: [id number] PHYSICIAN: BOGDAN MACIAS MDAUTHOR: Evi SMITH,S. DATE: [...] Home Medication ListAllergiesCoded Allergies:risperidone (08/04/19)ExamVital SignsVital Signs-24 HRS09/032618Ajwx 98.8Pulse 80Resp 18B/P 122/65B/P MeanPulse Ox 99O2 DeliveryO2 Flow NiasBzZ2Vwuazgflhk/PlanDiagnosis/Problem1. Major depressive disorderStatus Chronic2. Suicide attemptStatus Acute3. Bipolar affective disorderStatus Chronic4. Bipolar disorder5. Borderline personality disorderStatus Chronic6. Obesity, morbidStatus ChronicDATE SIGNED: 04/10/21 Vidai jose SignedTIME SIGNED: 0732 DORI KENNEDY MD Name Value Range Interpretation Code Description Data Stephanie rce(s) Supporting Document(s) ID Date Data Source [id number] 04/09/2021 04:05:00 PM EDT [address] PSYCHIATRIC ASSESSMENTPATIENT NAME: YARELI HATCH MR#: [id number] PHYSICIAN: BOGDAN MACIAS MDAUTHOR: Surendra SMITH,P. DATE: 04/09/21 RM#: [id number]his is a 89-mcvwd-miv white female.Chief Complaint"I am having suicidal thoughts and anxiety."Reason for AdmissionPatient is well known to us. She presented to the ER with the complaint ofincreased suicidal ideations after an argument with her significant other. Shehas a history of suicidal ideations and multiple inpatient treatment. Patientcannot contract for safety. Hence, she was hospitalized.History of Presenting IllnessPatient was seen today along with the college scouting coordinator, Gloria, and a PAstudent from [facility]. [facility] stating with [...] hasn't beensleeping for 3 weeks.Patient was at [facility] since and transferred to [facility] and discharged. She states that she was in a [facility] anddischarged from there and has been trying to be admitted to several hospitalsthere. Stated she cannot contract for safety and thus requested an inpatienttreatment. She reported increased stress due to not feeling safe at her [facility]res[facility] due to another resident, increased family conflict due to beingtransgender and ex being in [place]. She also reported that she was notfollowing the rule of [facility]. She is not diligent with medications.Portions of this section were scribed by Shell Ariza on 04/09/21 at 1638Past Psych/Medical HistoryPsychiatric HistoryShe has long history of psychiatric problem including bipolar disorder, ADHD,anxiety, and depression with numerous hospitalizations. She has attemptedsuicide multiple times by overdose and by cutting herself. She was dischargedjust one day before her last hospitalization. [facility] [place]. She is on AOT since 01/09/21.Medical HistoryDenies [...] rce(s) Supporting Document(s) ID Date Data Source [id number] 04/09/2021 07:55:00 AM EDT [facility] Name Value Range Interpretation Code Description Data Stephanie rce(s) Supporting Document(s) LCOVID-19, [facility]IVE [facility] and reported by [facility]. ID Date Data Source [id number] 04/09/2021 08:19:00 AM EDT [facility] [place] Name Value Range Interpretation Code Description Data Stephanie rce(s) Supporting Document(s) COVID-19, CORDELL NEGATIVE NEGATIVE N [facility] Methodology: Isothermal Nucleic Acid Amp [...] Emergency Use Authorization. ID Date Data Source [id number] 04/08/2021 11:32:00 PM EDT [facility] [place] Name Value Range Interpretation Code Description Data Stephanie rce(s) Supporting Document(s) SALICYLATE < 1.7 mg/dL 0.0-20.0 N [facility] ID Date Data Source [id number] 04/08/2021 11:32:00 PM EDT [facility] [place] Name Value Range Interpretation Code Description Data Stephanie rce(s) Supporting Document(s) ACETAMINOPHEN < 2.0 ug/mL 0-30 [facility] ID Date Data Source [id number] 04/08/2021 11:32:00 PM EDT [facility] [place] Name Value Range Interpretation Code Description Data Stephanie rce(s) Supporting Document(s) ETOH 0.004 g/dL NONE DETECTED [facility] ID Date Data Source [id number] 04/08/2021 11:32:00 PM EDT [facility] Name Value Range Interpretation Code Description Data Stephanie rce(s) Supporting Document(s) GLU 100 mg/dL 70-110 [facility] Patients taking Sulfasalazine may have f alsely depressedGlucose levels. Patients taking Sulfapyridine may havefalsely elevated Glucose levels. Patients should be drawnfor Glucose before the initial administration of eitherdrug. BUN 12 mg/dL 7-23 [facility] CRE 0.644 mg/dL 0.500-1.300 [facility] GFR > 60 mL/min [facility] CHLORIDE 111 mmol/L 99-110 [facility] NA 142 mmol/L 136-147 [facility] POTASSIUM 3.9 mmol/L 3.5-5.1 [facility] TCO2 28 mmol/L 20-33 [facility] ANION GAP 6.9 10.0-20.0 [facility] CA 8.4 mg/dL 8.3-10.7 [facility] ALKALINE PHOS 124 U/L 45-117 [facility] TP 7.4 g/dL 6.0-7.8 [facility] ALB 3.5 g/dL 3.5-5.0 [facility] ESRD Dialysis patient Albumin reference range: 2.9-4.4 g/dL GL 3.9 g/dL 2.3-3.5 H [facility] A/G 0.9 1.0-2.5 [facility] T. BILIRUBIN 0.2 mg/dL 0.1-1.1 [facility] The Dimension Lyman Total Bilirubin is n ot recommended forpatients undergoing treatment with eltrombopag (Promacta)due to the potential for falsely elevated results. ALTI 55 U/L 6-54 [facility] Patients taking Sulfasalazine and/or Sul fapyridine may havefalsely depressed ALT levels. Patients should be drawn forALT before the initial administration of either drug. AST 31 U/L 6-38 [facility] Patients taking Sulfasalazine and/or Sul fapyridine may havefalsely depressed AST levels. Patients should be drawn forAST before the initial administration of either drug. ID Date Data Source [id number] 04/08/2021 11:05:00 PM EDT [facility] Name Value Range Interpretation Code Description Data Stephanie rce(s) Supporting Document(s) WBC 8.86 x10E3/uL 4.0-10.5 [facility] RBC 4.27 x10E6/uL 4.20-5.40 [facility] Hemoglobin 12.5 g/dL 12.0-16.0 [facility] Hematocrit 38.3 % 37.0-47.0 [facility] MCV 89.7 fL 81.0-99.0 [facility] MCH 29.3 pg 27.0-31.0 [facility] MCHC 32.6 g/dL 32.7-35.6 [facility] RDW 12.1 % 11.5-14.0 [facility] Platelet count 266 x10E3/uL 150-450 [facility] ital MPV 9.6 fl 6.9-9.5 [facility] Neutrophils 57.4 % 34-64 [facility] Lymphocytes 32.3 % 25-45 [facility] Monocytes 7.8 % 1.7-10.6 [facility] Eosinophils 1.7 % 0.4-7.0 [facility] Basophils 0.3 % 0.1-2.0 [facility] Imm. Gran. 0.5 % 0.1-2.0 [facility] Abs. Neutro. 5.09 x10E3/uL 1.2-7.6 [facility] [place] Abs. Lymph. 2.86 x10E3/uL 1.0-3.5 [facility] Abs. [place]. 0.69 x10E3/uL 0.1-1.0 N [facility] Abs. Eosin. 0.15 x10E3/uL 0.1-0.7 [facility] Abs. Baso. 0.03 x10E3/uL 0.0-0.1 N [facility] l Abs. Imm. Gran. 0.04 x10E3/uL 0.0-0.1 [facility] spital ANRBC% 0 % 0 [facility] ID Date Data Source [id number] 04/08/2021 11:56:00 PM EDT [facility] [place] Name Value Range Interpretation Code Description Data Stephanie rce(s) Supporting Document(s) PCP VISTA NEG NEGATIVE [facility] MINIMUM LEVEL OF DETECTION IS 25 ng/ml BENZODIAZEPINES NEG NEGATIVE [facility] al MINIMUM LEVEL OF DETECTION IS 200 ng/ml COCAINE VISTA NEG NEGATIVE [facility] MINIMUM LEVEL OF DETECTION IS 300 ng/ml AMPHETAMINES NEG NEGATIVE [facility] al MINIMUM LEVEL OF DETECTION IS 1000 ng/ml BARBITURATES NEG NEGATIVE [facility] al CUTOFF CONCENTRATION IS 200 ng/ml CANNABINOIDS NEG NEGATIVE [facility] al CUTOFF CONCENTRATION IS 50 ng/ml METHADONE VISTA NEG NEGATIVE [facility] al MINIMUM LEVEL OF DETECTION IS 300 ng/ml OPIATE VISTA NEG NEGATIVE [facility] MINIMUM DETECTION LEVEL IS 300 ng/ml ID Date Data Source [id number] 04/08/2021 11:30:00 PM EDT [facility] Name Value Range Interpretation Code Description Data Stephanie rce(s) Supporting Document(s) URINE COLOR Yellow [facility] UAPR Turbid [facility] UGLU Negative NEGATIVE [facility] URINE BILIRUBIN Negative NEGATIVE [facility] al UKET Negative NEGATIVE [facility] USG 1.021 1.010-1.025 [facility] UBLO Negative NEGATIVE [facility] UpH 8.5 5.0-8.0 [facility] UPRO Trace Negative [facility] UUB 1.0 mg/dL 0.2-1.0 [facility] UNIT Negative Negative [facility] ULEU Trace Negative [facility] ID Date Data Source [id number] 04/08/2021 11:30:00 PM EDT [facility] [place] Name Value Range Interpretation Code Description Data Stephanie rce(s) Supporting Document(s) URINE RBC 0-2 RBCs/HPF NONE SEEN [facility] URINE WBC 3-5 WBCs/HPF NONE SEEN [facility] URINE BACTERIA Few NONE SEEN N [facility] URINE EPI. Many NONE SEEN [facility] URINE CRYSTAL MANY AMORPHOUS NONE SEEN N [facility] ID Date Data Source [id number] 04/08/2021 11:30:00 PM EDT [facility] [place] Name Value Range Interpretation Code Description Data Stephanie rce(s) Supporting Document(s) HCG QUAL URINE Negative Negative [facility] ID Date Data Source [id number] 04/09/2021 04:09:00 PM EDT [facility] [place] Physician DocumentationClaxton-Wainscott M edical CenterName: Yareli DuvallAge: 20 yrsSex: FemaleDOB: 2000MRN: [id number] Date: 04/08/2021Time: 22:26Account#: [id number] MD: NONE, - Per PatientED Physician Santiago RajanDiszach Summary:04/09/21 12:49Hospitalization OrderedHospitalization Status: Inpatient Fiffanciyav3Yzugouhp: Surendra Emlkflhn0Iikothok: Mental Health Cifopg8Wqwvzlxdg: Weliwgaw9Jzvdeud: an acute tjtiwmtkmtxecy6Kiotbwxo: are rrshnyplaxm8Cyyc Assignment:ca0Nfwhpdesz- Major depressive disorder, recurrent, xpggymwiukjcf9Ukphdldzia Information- Admission Type: Inpatient Status.jr4Mkhgk:- Medication Reconciliationrf2- SBARrf2- Medication Reconciliation Form - 2nd Copyrf2- Psych. QJDSgv0WIJ:03/2906:59 This 20 yrs old White Female presents to ER via Police with complaints ofPsych Problem.br07:19 20-year-old female with extensive psychiatric history of bipolar ADHDanxiety brdepression presents complaints of increasing suicidal ideation after argumentwithsignificant other. 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 prazosin 2 mg Oral capsule 1 cap every day at bedtime2. Zyprexa 5 mg Oral tablet 1 tab nightly3. montelukast 10 mg oral tablet 1 tab daily4. topiramate 75mg oral tablet daily5. aripiprazole 10 mg oral tablet 1 tab daily6. aripiprazole 400 mg intramuscular suspension,extended release syringe 400 kocoavf97 days7. sertraline 50 mg oral tablet 1 [...] Temp 97.3; Pulse Ox 98% on R/A; Udgwuw592.33 kg (R); id8Eyazxr 5 ft. 6 in. ; Pain 0/10;03/2908:38 BP 123 / 77; Pulse 66; Resp 18; Temp 97(TE); Pulse Ox 98% on R/A;sw215:20 BP 126 / 70 (auto/); Pulse 70 MON; Pul se Ox 97% ;ef109/2822:31 Body Mass Index 37.12 (104.33 kg, 167.64 cm)kk309/2:31 Pain Scale: Wbdhqud4QDG:03/2822:45 Patient medically screened.br2906:53 Transition of care: Care assumed from Zeeshan Grover MD.rf206:54 Data reviewed: vital signs, nurses notes, lab test result(s), CBC, druglevel(s), ng9kgvaigdkbwqug, alcohol, salicylate, electrolytes, hepatic panel, urinalysis,urine drugscreen. [...] Order name: Medically Cleared for Eval by-Psychosocial, Bindery Helper (YE);Complete Time: rf213:27Dispensed Medications:08:37 Drug: sertraline 50 mg [sertraline 50 mg tablet (1 tabs)] Route: PO;sw215:21 Follow up: Response: No adverse tlpzykjkhf592:37 Drug: Topiramate 75 mg [topiramate 25 mg tablet (3 tabs)] Route: PO;sw215:21 Follow up: Response: No adverse bhdhjiqzoi219:38 Drug: ARIPiprazole 10 mg [aripiprazole 10 mg tablet (1 tabs)] Route: PO;215:22 Follow up: Response: No adverse aisgsmpsqq559:38 Drug: Loratadine 10 mg [loratadine 10 mg tablet (1 tabs)] Route: PO;215:21 Follow up: Response: No adverse fupfxfrvju318:38 Drug: Montelukast 10 mg Route: PO;215:21 Follow up: Response: No adverse hwbnoxuljy868:38 Drug: Propranolol 10 mg [propranolol 10 mg tablet (1 tabs)] Route: PO;215:21 Follow up: Response: No adverse roman avojvgf2Gjcsjgzwer:Dispatcher [employer] Fortunato Burrell RN RN yu3ZcpwnshZeeshan armstrong MD MD brKelly, Krista, RN RN hj8XknpOlivia RN RN bx0GmlkySantiago betts MD MD xu3GuqdvlnuAmi arthur RN ow0Kjmgyjtouxj: (The following items were deleted from the chart)01:16 04/08 22:33 Home Meds: Lexapro 10 mg Oral tablet 1 tab nightly; kk3kk3 Name Value Range Interpretation Code Description Data Stephanie rce(s) Supporting Document(s) ID Date Data Source [id number] 04/09/2021 04:09:00 PM EDT [facility] terName: Yareli DuvallAge: 20 yrsSex: FemaleDOB: 2000MRN: [id number] Date: 04/08/2021Time: 22:26Account#: [id number] Jitendra SMITH: NONE, - Per PatientDiagnosis: Major depressive disorder, recurrent, unspecifiedPresentation:03/2822:28 Presenting complaint: Patient states: "I am having suicidal thoughts andanxiety.". vv3Kjwlujdryyb Screening: Have you been diagnosed with COVID-19 in the past 30days? noAre you currently on quarantine by Public Health? no Flu-like symptoms reportedin thelast 14 days: no. Have you had close contact with confirmed or suspectedCOVID-19 case?no Do you live in a setting where a large of amount of people live, such [facility], family care, alf, etc? no. Have you traveled to a location withwidespread orongoing COVID-19 community spread or outside of [facility]? no Have you traveledinternationally or had contact with someone that has traveled and has been illin thepast 3 weeks? no Have you received the COVID vaccine? Yes. Communication SpeaksEnglish? Yes, is preferred language. Language Line Services needed? No Are TDDneeded?No. Best learning method: discussion. Learning barriers: none identified.22:28 Acuity: Triage 0wk584:28 Method Of Arrival: Ajcyasvk894:29 Presenting complaint: Badge #[id number] from [facility] states patient madesuicidal br3lhzpnaiwob and called police to be brought in.22:30 Acuity Assignment: Triage 4jo247:50 International Travel Fever No. Communicable Disease Screen: Negative forfever>/= 100 oa3qtacfrj Fahrenheit. Communicable disease screen is negative. (-) rash orunusual skinlesion (-) travel/contact with traveler (-) respiratory symptoms.Triage Assessment:22:34 General: Appears in no apparent distress, well nourished, well groomed,Behavior is nb0xegtnaj, appropriate for age, cooperative, Denies fever, chills. 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 prazosin 2 mg Oral capsule 1 cap every day at bedtime2. Zyprexa 5 mg Oral tablet 1 tab nightly3. montelukast 10 mg oral tablet 1 tab daily4. topiramate 75mg oral tablet daily5. aripiprazole 10 mg oral tablet 1 tab daily6. aripiprazole 400 mg intramuscular suspension,extended release syringe 400 iwbvpge30 days7. sertraline 50 mg oral tablet 1 [...] threats or abuse. Denies injuries from another.Nutritional fu8urahpfqya: No deficits noted. Offer of HIV testing: patient was previouslyofferedscreening. Fall Risk None identified.Assessment:03/2822:37 Reassessment: see triage assessment by this keno writer/runner.kk323:59 Reassessment: Patient appears in no apparent distress at this time.jw509/2900:52 Reassessment: Patient appears in no apparent distress at this time.kk302:19 Reassessment: No changes from previously documented assessment.jw503:49 Reassessment: No changes from previously documented assessment.jw505:06 Reassessment: No changes from previously documented assessment.jw506:34 Reassessment: No changes from previously documented assessment.jw508:29 Reassessment: Patient appears in no apparent distress at this time. Nochanges from nh1yrdltsssny documented assessment. Sitter at bedside. .09:59 Reassessment: Patient appears in no apparent distress at this time. Nochanges from ln8owglnztjan documented assessment. Patient sleeping in bed. Sitter at bedside. .10:57 Reassessment: Patient appears in no apparent distress at this time. Nochanges from qf2jrtfpdxrdh documented assessment. Patient sleeping. Sitter at bedside. .Psychosocial:04:52 Narrative PSA spoke to Dulce at [facility] ([phone]) who states that thepatient was kl6jhsm all day. She states that she was [...] Completed. Interventi on: Observation Level 3.Referral Information: nl1Uohsovqdtw referral is generated by a police agency: [employer]. The patient wasreferred forevaluation because patient had voiced suicidal ideations.05:09 Subjective: The patients chief complaint is Pt presents to the ED by [employer].Patient xy9repgyjd feeling suicidal for "a while" now and [...] history of anxiety, Bipolar Disorder, Depression, self-mutilation, hp1Wefus: [employer]. Mental Health Admissions: several. pt was last at PS[facility]ATRIC 04/01/21 anddischarged 04/03 Current Outpatient Mental Health Services: [facility] [place] Living Environment: Family / Home Support: poorThepatient currently lives in a [facility] residence. The patient is single. Detox /RehabAdmissions: None. Current Outpt Alcohol or Substance Abuse Services: None.05:16 Patient presents to Emergency Department with the following symptomswithin the past 2 ej2eaboo: suicidal ideation with plan for jump in [...] patient status is not currently needed orappropriate. uc1Bqqtmtgkbsfd: Psych MD informed of patient's status at 06:00, ED MD notified ofpatients status at 06:34. Disposition: Medically cleared for disposition by [facility].Psychiatric Consult is performed by phone with Dr David STEVENS. DSM-V DX [place] Idiagnosis:Depression, Unspecified. Insurance Pre-Certification: Not Required. IMHUAdmissionCriteria: [...] dosageadjustments. Awaiting. The patient is not a banking services advisor or militarydependent.[place] Suicide Severity Rating Scale: Suicidal Ideation Rating 5; IntensityofIdeations Rating 25; Suicidal Behavior Rating 0.Psych:00:00 Subjective: Patient's mood is elevated, Delusions are denied,Hallucinations are denied we1Raofwh thoughts of suicide. Denies suicidal plan. Objective: [...] Temp 97.3; Pulse Ox 98% on R/A; Xyqkiy586.33 kg (R); wi1Cbgrdd 5 ft. 6 in. ; Pain 0/10;03/2908:38 BP 123 / 77; Pulse 66; Resp 18; Temp 97(TE); Pulse Ox 98% on R/A;sw215:20 BP 126 / 70 (auto/); Pulse 70 MON; Pulse Ox 97% ;ef109/2822:31 Body Mass Index 37.12 (104.33 kg, 167.64 cm)kk309/2822:31 Pain Scale: Oyuqrld7YE Course:03/2822:27 Patient arrived in ED.kk322:27 NONE, - [...] Nurse role handed off by Fortunato Mark RNNTvr4Wrkqpizeahdq Medications:08:37 Drug: sertraline 50 mg [sertraline 50 mg tablet (1 tabs)] Route: PO;sw215:21 Follow up: Response: No adverse adxcnsfulv807:37 Drug: Topiramate 75 mg [topiramate 25 mg tablet (3 tabs)] Route: PO;sw215:21 Follow up: Response: No adverse :38 Drug: ARIPiprazole 10 mg [aripiprazole 10 mg tablet (1 tabs)] Route: PO;sw215:22 Follow up: Response: No adverse :38 Drug: Loratadine 10 mg [loratadine 10 mg tablet (1 tabs)] Route: PO;sw215:21 Follow up: Response: No adverse htozstitgb367:38 Drug: Montelukast 10 mg Route: PO;sw215:21 Follow up: Response: No adverse lwyzhhtqmn879:38 Drug: Propranolol 10 mg [propranolol 10 mg tablet (1 tabs)] Route: PO;sw215:21 Follow up: Response: No adverse hbsjeuzdmn2Hcqhjto:12:49 Decision to Hospitalize by Provider.rf215:22 Disposition: Admitted to Psych accompanied by nurse, with chart.ef115:22 Condition: stable, Provider notified of abnormal vital signs.15:22 Discharge instructions given to patient, Instructed on need for admit,Demonstratedunderstanding of instructions.15:22 Discharge Assessment: Patient verbalized understanding of dispositioninstructions.Patient able16:09 Patient left the ED.hv3Akdodmlffo:Fortunato Mark, RN RN kq7RxhbfbgkAmi arthur RN RN ip8XeofjfgryAgatha chapa RN RN mp3Zeeshan Grover MD MD brKelly, Krista, RN RN mh3LgzuuqrfUsha apple8WeOlivia jurado RN RN ui9VuosjSantiago Rajan MD MD qo2Gxkbzophgps: (The following items were deleted from the chart)01:16 04/08 22:33 Home Meds: Lexapro 10 mg Oral tablet 1 tab nightly; vz6dk539/2905:17 05:14 Patient reports history of anxiety, Bipolar Disorder, Depression,self sm8-mutilation, Other: BPD. Mental Health Admissions: several. pt was last at PS[facility]AT[facility]04/01/21and discharged 04/03 Current Outpatient Mental Health Services: Psychiatrist /Agency:[facility]. Living Environment: Family / Home Support: poor [facility]. The [facility] is [facility]. Detox / Rehab Admissions: None. CurrentOutptAlcohol or Substance Abuse S ervices: None. sm8 Name Value Range Interpretation Code Description Data [facility](s) Supporting Document(s) ID Date Data Source [id number] 04/08/2021 08:32:18 AM EDT [facility] Name Value Range Interpretation Code Description Data [facility](s) Supporting Document(s) ED Provider Note [facility] XOHCLf5dNaTLVpCj42/TJItfVJZfo9HoTWalDPv7PJpvKDLeJ3GgUYM5tF1nNZN1ZDtLJlDiEaDuDNL5 [facility] [file] == ID Date Data Source [id number] 04/08/2021 08:24:44 AM EDT [facility] Name Value Range Interpretation Code Description Data Stephanie rce(s) Supporting Document(s) Discharge Summary [facility] MJYLDm7pCtOEApSv31/WRZrqJSMff0XyTNusLHf2OZsqUIVvA1ZzFXA9yO0vEAG2DUaHKwMrPlIwSFY0 lbm [file] AgICAgICAgICAgICAgICAgICAgICAgICAgICAgICAgICAgICAgICAgICAgICAgICAgICAgICAgICAgIC AgICAgICAgICAgICAgICAgICAgICAgICAgICAgDQogICAgICAgICAgICAgICAgICAgICAgICAgICAgIC AgICAgICAgICAgICAgICAgICAgICAgICAgICAgICAg ICAgICAgICAgICAgICAgICAgICAgICAgICAgICAgICAgICAgICAgDQogICAgICAgICAgICAgICAgICAg ICAgICAgICAgICAgICAgICAgICAgICAgICAgICAgICAgICAgICAgICAgICAgICAgICAgICAgICAgICAg ICAgICAgICAgICAgICAgICAgICAgDQogICAgICAgIC AgICAgICAgICAgICAgICAgICAgICAgICAgICAgICAgICAgICAgICAgICAgICAgICAgICAgICAgICAgIC AgICAgICAgICAgICAgICAgICAgICAgICAgICAgICAgDQogICAgICAgICAgICAgICAgICAgICAgICAgIC AgICAgICAgICAgICAgICAgICAgICAgICAgICAgICAg ICAgICAgICAgICAgICAgICAgICAgICAgICAgICAgICAgICAgICAgICAgDQogICAgICAgICAgICAgICAg ICAgICAgICAgICAgICAgICAgICAgICAgICAgICAgICAgICAgICAgICAgICAgICAgICAgICAgICAgICAg ICAgICAgICAgICAgICAgICAgICAgICAgDQogICAgIC AgICAgICAgICAgICAgICAgICAgICAgICAgICAgICAgICAgICAgICAgICAgICAgICAgICAgICAgICAgIC AgICAgICAgICAgICAgICAgICAgICAgICAgICAgICAgICAgDQogICAgICAgICAgICAgICAgICAgICAgIC AgICAgICAgICAgICAgICAgICAgICAgICAgICAgICAg ICAgICAgICAgICAgICAgICAgICAgICAgICAgICAgICAgICAgICAgICAgICAgDQogICAgICAgICAgICAg ICAgICAgICAgICAgICAgICAgICAgICAgICAgICAgICAgICAgICAgICAgICAgICAgICAgICAgICAgICAg ICAgICAgICAgICAgICAgICAgICAgICAgICAgDQogIC AgICAgICAgICAgICAgICAgICAgICAgICAgICAgICAgICAgICAgICAgICAgICAgICAgICAgICAgICAgIC AmFTScXSOlDQMwYVYjPATfMUZuDPRyWNCvKBKiXJKeYYPtNMLwHNe4D8kyEQUoRRDzUK9iWAt8Lc1+DQ jXQuEgVHM5mkYgfF8VZE0mz2OmJHoeNPOoz5ZbITf0 BV5FSZMbPRurFT8SXHxqfn8ZENIlUSVrfQBTr5tvUzKzIAM9NUGgUgqsOV1LMUPwY5yhimNdKDJtQQSI RGbdGQLMEScjLALZKWApDRRqIgXnVsFvONIbXHPuJZPNMYX9DUOhRhHaLDIrHBBjDqToOIMFTQLaSUSq ZeHrKTEjQWXcHkdwBWVEZVZ7QZCdZqSkCVHiLNUoSP 5IGOLxT176boMaWWDGHo2+DEnhjeWiTpzSWxKjKATdp2LfNJf7HV7CQBAhNwztm2XjQbBoYZJCMLwcHY 5XIPD0SAFoRWStNk5PVDAwL386dqFlNI2OFq7AAfPxGS5qqv2LZaKyAJOuPhvPUmk8MWhkXA2AtBKuOZ eCrONnhOUwP2ZhY7TipNDooTLzzEZPHJ2pksBRVE7d M90vWZPLWNMyuWZ3XpU2KsIkPpAkGMX3QbBrVC6bWEptPH9BARY8GDmgVMCxSWWkG9gBVkKkYQVxKYGi dFrmXX4SVnKrV9ZcqhPoxFD7VrJpILGREj1+PXzknbZnSxpZRsO4ZMBdm2FyURu3KJ5RYGNsOSkpTK4M HHTjrS0kTNvrEA1BTwC7JTXuBCZPLxXvW59jlJYqXK q6I4TqCxElTBUaWfdaEKFfGCctZsZpEMTvAsRiSDyqKG4+ID4+SKkzUZ2TLVpbbmMkDNTyCw0QUCMrAQ KkBQ4jELWrMUKiE8Y8eKjsVFLKKpVlV3yelclvVW6bYWQkF969xZvnnhPxDMWmQGKsLb0EANOqQTL2VF ThkFSnKyXiOOLJXSgbST6RwSCwDZD4eD8qZOluARKh OIIjX5eIDzEeiNuiER72wFszaoItuFLvUZd+Or9YBP4pu7FjFGp5ewDzVYruJOX4VGmvBWMuLMYwTDMd IUI6GXM0EMAZZxIjPOIeMCIeWPbwYNXzACMnrj0BDRApNNJ7FZmmNEFrZKVgPZLuUWlqEGYhGShmZmIz FJJxEEOmKQ1RObXoOFKnDOBkPLobRDSjIBYnhu1JND ZyGRHoYBEpMbDxIKXxXTJdTKqxKWMiONM9WBKcRGOfXSFdZX3BKgNrRXCfFAp5BOPqSTRbQNUcbg0ABL MsNEZuNuttQDGkVDAtVBYyHAeeLCAyECCxQNK7CBAzDODxLM1RXbRpXUHwKQVzARSdWTCrYBUkew8UCX FpBEUaSiT7NyPcLTQrEQJiGAmgFUVhDXEyIJw2IIGn PZFpIK7ADzJlXTBcZAV1PdVhMBXfAELzae0WZWAuQWTaLgXjFqSjOHPeEMXmVFxwUCRlJMP9AcE4RHSp PSRfHG4GFbGhEDVjSIo6BaHfEAKaIUYnor5DJMTmKKIbZQV7NRZwUEPaNZEcDKwkJHGrBCIfHBF2ZZKq FCNdAW0JOhSmXOEqNrTgFRQnGNPoPBUyfa8VXFXfBJ TfLGV8TcFqVAGbNOJxQAmvPDCyRZO3DiE7EDCyGEFrFW7UQoNnVBUuEko9ABSqSXPhOWTnsu6BBXMaQJ LwWyKbJbZzVUAqEXDnQJpkFJCrPQJgKnC5IXZqWZLbEX8RZcFpUYKfZoA2ElHdARWyYEStwi7KOKBwHN MdZcM7PjJjFKWzZFMwVAxwDWZeYSZvOqJjBDVnKODd YV3BLaHuBYLrIVG1VnshUPKeDRDueb3NSEHvLXK4EmQ9JlHpQBHdKIZtYSzqIMCaWHDdMhB9KOSpRADp SA3DZtNqMAVkFMU4PDmsBVPzSRKrcs3TYLBdIRZ8AJL3RJOrYMAcXIClWPkaZSRyZQV7TaF1FZSxTDYs XV7KNwXgCUZdSJD1ZFViCGLeBJZrvw4EDNXlKDB5MB u5AVRjXMBxAIKaXCrkBIKkCEN3ZPLuCDPyNWWzAM1QQfEqCLPhUNjmSDWkWYLwUJUxmu3SWXHiRLJ6Hd A5FyMsKKYcYREjYWinQKJjKSV3XcJhNWUhOQQhJD4FApJeIGFfRBe4RPUaTUZaREDkxt1FKTDcJXX9WJ G2QxTzLWKvXCIdBGkuTNHwBFF3MhEkHYLvOIGdLY8B PtOyVJLlTHe4MUdvLWKnRXHyib6BSPFtPSM4PWPbZlYwNTOgGUErANyyGEUnICZdDAkmRKNhEMVfBZ2O IeKxUBAbMVOuZYLpLPSkNGTvhk6MYOWoEQZ4ZLU8JxGrIRJzSZBpPZxvURKxLBTlFtV6QVThEOOlNF7P NqDnEQGyBZF4UFAzCTDaXBKxyn2IDPNbDYH6Mla4IM FzWOZqMSJvXFnqLKIrMDD0QIn8JZEeZARsUY8OIfHqCGPyZfI3SFLoBDQaZFBrxt7DUAAqACG3IBjyXL QuIRLqJVUmITrgQRGmDIU2ZAxpIOQyHNYnBS6ZWqEoHSDmLaYzZERjTKBmOSZezo3JJKXvPLL3MEs8Jb DdUFYqJBWdRRdnJXAsPOkyUipoCAPaYDUrQD6ZAjGw FBMgUzW5VBBzTEZiUCJqse0TKXBxEKC1AQe3UdEzXJXvWKMuKJkvYCPrPFtlMJb0EEWgGIWsKU7WChYr FLVeOpPgOtUoCPArSKDjjj4FCOOgCSK1Pjq8GQGwBBKuNAIxYMizIMMoWFukCHS1WYGuRVEvVJ3HWzQy IZGwDzHaFqFgGTAmVDSoyw2YpGXhzSykwn0JGZkELx 5GyXjiZSI3HBnaWj1eaQE1JPKnIGFTWi7TfaIxZGAnTTFOKQqyAGPyDXFgHbX7BdQvAXMnDpCtLjq2QU S4EIB1OMdzTRu6IKteLjK3TEEyBweoBkS5FFArLSTsOelpPINzNYx4VFXqOiZcSqZ+NB9nZLm+Pg0Kc3 CadaY7aoJuUPx5DyL4LH8DVBRFL5LVKh== ID Date Data Source [id number] 04/08/2021 08:11:12 AM EDT [facility] Name Value Range Interpretation Code Description Data Stephanie rce(s) Supporting Document(s) Consultation [facility] WSUZNg4cZrJXCmDu76/HJRymVHQil4ZaYOesRJy9BJgkINVwZ4PbNPO5jG4oVBZ4PTtHXzYqRdEiXOQ8 lbm [file] scKVwnsZ3/QpCQar2gILvhSSltGdkVONRIYEpA71ZrFhKuEglmTi10NoL4wwNgUgHHqcmM6ppTQw/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 [file] ICAgICAgICAgICAgICAgICAgICAgICAgICAgICAgICAgICAgICAgICAgICAgICAgICAgICAgICAgICAg ICAgICAgICAgICAgICAgICAgDQogICAgICAgICAgIC AgICAgICAgICAgICAgICAgICAgICAgICAgICAgICAgICAgICAgICAgICAgICAgICAgICAgICAgICAgIC AgICAgICAgICAgICAgICAgICAgICAgICAgICAgDQogICAgICAgICAgICAgICAgICAgICAgICAgICAgIC AgICAgICAgICAgICAgICAgICAgICAgICAgICAgICAg ICAgICAgICAgICAgICAgICAgICAgICAgICAgICAgICAgICAgICAgDQogICAgICAgICAgICAgICAgICAg ICAgICAgICAgICAgICAgICAgICAgICAgICAgICAgICAgICAgICAgICAgICAgICAgICAgICAgICAgICAg ICAgICAgICAgICAgICAgICAgICAgDQogICAgICAgIC AgICAgICAgICAgICAgICAgICAgICAgICAgICAgICAgICAgICAgICAgICAgICAgICAgICAgICAgICAgIC AgICAgICAgICAgICAgICAgICAgICAgICAgICAgICAgDQogICAgICAgICAgICAgICAgICAgICAgICAgIC AgICAgICAgICAgICAgICAgICAgICAgICAgICAgICAg ICAgICAgICAgICAgICAgICAgICAgICAgICAgICAgICAgICAgICAgICAgDQogICAgICAgICAgICAgICAg ICAgICAgICAgICAgICAgICAgICAgICAgICAgICAgICAgICAgICAgICAgICAgICAgICAgICAgICAgICAg ICAgICAgICAgICAgICAgICAgICAgICAgDQogICAgIC AgICAgICAgICAgICAgICAgICAgICAgICAgICAgICAgICAgICAgICAgICAgICAgICAgICAgICAgICAgIC AgICAgICAgICAgICAgICAgICAgICAgICAgICAgICAgICAgDQogICAgICAgICAgICAgICAgICAgICAgIC AgICAgICAgICAgICAgICAgICAgICAgICAgICAgICAg ICAgICAgICAgICAgICAgICAgICAgICAgICAgICAgICAgICAgICAgICAgICAgDQogICAgICAgICAgICAg ICAgICAgICAgICAgICAgICAgICAgICAgICAgICAgICAgICAgICAgICAgICAgICAgICAgICAgICAgICAg NEEbAVFvJDGlGWAoWUSiTQMyPJAoVCNdCBCnXFu9Y7 szQFVzYOPnGP0mOCn4Ra7+CEhSQySkWWH3ucAqjK1OCI8tf7ZePCzzGSLuo2WmOUi7QH2ZKAOqZFfwPB 8UFHtyjj9USLTxAXAvlAIAk5npGzBuNSZ7XJZuMwfyNA2ROJQvB0bjzjFjRRYtAKVBEEkiXKUSJJosOS CKWJKzNTVuWyPpWbApUZZlJBReDUCPNOF9LPWqWoQi AHKuNSAcKrNjJBJGXNKvDMYsPaGsTZGpQYUmZgmvADXLNY0PFtIgV1QdbX01BFIkJPm+Gr3ZIE0cc8Ej SHo6HfOoCB5mqs0BPBeAKtKeS7DhylC2WQU9YXIcSx6RHRNtBNAhmGW4QONgWPJCPiDyU7WhyA20GCQP Cj4+UAcalhShEavFHsD3OCRfo0EbGTm4EK2RNLOtNJ p8wLWeP39ui0OzcFLqQtxoV5jysVK0i8WfKHMtYhKWDV9sJB0eBPZPJwSzmLX0XlS1WzMtLcVrHMX5UG jpWD1tFBsdPA1PYAR9RGwbFEGrGPXmJ6qTIuFyCCSjTFXwsBpdXH4DTkLwQ7VsptGvhRP9SjQqIWLPQe 4+NGpdtfJjMwiAVzY5IFEri1TlBBn1TI5KFICiEXbr BU4ELWQxhQ2wEEglFL8RLxX4XNOzAJYXMwOeN87tiIOaZYo7N4EoFjDsYHQpMuxhWEUuLGaoIkHsVZXg WyBdDQogID4+ID4+ABgaLT5KLZywvsHnTYFoPo9VUBRqWHOjLZ4cQFFkYZAgY2L8hVgwHAXXWvRbS8xa aorgOX1eBMLgE350lAlwhlGxNZRgWEFkGz4ADWRmFC X4RUMhnWFjLgOvBMSQUXaiHO5NhVMpXNY7dD6eWXasYQKiBJEwU0tRIwMbgXjfYE13mCgapbNloLTkNA o+Qd9MBJ6qh7WqQCc6jdIbRAxmULN8KEgnDFIpUSMqZYQeOEU0ONX9ZDFQFfTiLRYdJEKnCVvoRGHyKH Arhv6RZECbXRD9JHLhELYtKPRoLHAoKRmpFZZzGHz3 JKA5UZHwNSZoIL7ZOzBmPUYdBAHpCCjaCOWaZLMkat7CFDTsQAEbMpanEiEmAPPyXHXoQDpjLKAuIUG8 YEO8NPVjVETgXF0NIyLtJNSjYLj7IAHbYQAvCGSobj2BIVCnERGtCkwuQCHwEKSlUUGkUIhwZMIqPARo MSr9IOOvQAPrWZ0YSyGzINKwHOEjSXPcYMBiHLWpmo 9PWKUwJHYjPZK5XABqSXGaGGHoDVkvWYYuGDT8QzK8RHMqXUAxKJ1RVjHeBSByMSNrDFVeUMKcAAGalv 3NMVTbIWXoMbXqKrPtQEBnCDZpWTxnQJOkJFI1YgP2NZNcACLlIA1IUyItFHRbAAc0DhGlTNEmJLJbey 5LZLChHDPnJVu7EsCoUCShTWMgFAskDXBtYALgCNq1 IREiZCMxHK4SUhLvXNFxPwX0BkBrAKYqNQNnld2ZPUNyLWOuODS8VfNgNWVuPEAfIMqkBNLmEOZ0CzD1 IWVjVLErUQ9SKhFmVMIrGub6KzHyDEJmHPYeew7KMPFgQZXvNGgaSNKnKJOzUTSoRJcqJKGhSDDrHCY6 IEEpFRWsRK5AWjYcFLLrNtAtFnbwBTZbVAYmby4PEX DfAWIiQoJyXYZmJIVhETFkCXywMGKbHPS7Jjh5QYFkQAUzFC9VOxYvUALfTqq8JWEsFPPkWWCpqe7MTB ZxAWCmGZn4NrMyQSRfGAJeXFsuCSYsAGA7XOZkMYBoFZJoVT0FZrUrFOByOlljVcWtXAMtUGVyig7GLF MuTKP1LMM5NuPdUMQhJMZyCYpjGLPlELMaHIo0DCOh TZHdVF1IFkDsFRJwKSV0EFQeXQYjNZCqlv4XYGXgNFT6PND6WeZiJQSuUZRoBNchSRSlPELqCZG2IMSo GCPyNY3TQrGyPLBiISUfXfWoBZUbNSQwza9QWEMxJPG7Qmg6IVJuFNJcSKNwJKjgMVOwJWMxHLaeDKBo LBOxNS5NIfKeJKWqNAGlRPTxFNFjVBNbpb8QHTKjQI R2ODY4WCNpXUQgTZSuQBvgDMNwXVI4JFN8JEGqVILdCR6YDjDfFOLgQZU6GipjVJMcXNTrjw0KIBNzQU J6CXSgZBZzZJWwQUByUSlvYSOaLRR7ALJ9VPKjBEBkYV3DXhRnYEJhLmf4VHRpYKJjESGqrz0TZMZxJN Q9YUFeHEVwQBEnCRBdACgjYHBtTUivDUczVPTzVYQs LI7BGdTzUFOxRwWgRoRvDQXkAHTprj8FDYZxLRR0EYR8HKXnVZFvAJWxSLfpXIQaVGt1WMh8QADxPPNw LR6ZHbBfAPOkUlPeCnQxEGSlYFTknq2PZMBsREC8FkV7FjMaUACyHVKfTFerKXOmTWg4QOw9HASzTDTo RB7EZjXdUZHcYfA5OkDkZNUuXBAnxy2SJURuZRD7Ze z5VACeKCNfKXOoUPjwGIWqJSz2XDV2ROGlTOHaDU7SJlWcFYAlZCA0IkQuANUeYMPbqj4ESEErZRB9DF z3FqJqTKDiACGzBWzvECWjPIv5KMC5IXKqISGlOH0YFrSrENFgQSX3SWgdZMAcVJYnew5RCDWoGDA3Bc AlHZXdMHOmPLUnBJshRERoVOc2JuW7QURcJZIyZI8M ZmUcBTCoCVr8YCwnRRFrKJRnxl4PMLCcXFE5Bdt6KVNxAKOeMRXdKXa0hfAfjVKpJYt0RE5SJ3YhfxWn FzUJCs9Gh805QMI8FWGlNj8YB4zlNr9gOMVqHLXPLp6BFBf5QJQgIMO9XQO8IDGmGuGnExdvUXB7BXi5 MTVlODRmZjE+LMl0IZE0TZNyCxi9XrAtAzZwJOBpTA n7BKPbYDD2JAGpQE0tPKBWFq7+VIggxWVzeUudCITUZrr3TRlyOPtuMQGPTl8N ID Date Data Source [id number] 04/07/2021 10:13:17 AM EDT [facility] Name Value Range Interpretation Code Description Data Stephanie rce(s) Supporting Document(s) Consultation [facility] MATPKe7tKgXVZgVx84/KBGmgPZUrr8VaHIidXPw7LIrsRLQmN2LaVSW5lE6dDLO7EUvIAoSnZqDgQNU2 lbm [file] FWU1DaN9LPO9PIw2H3AkNAGqDXPtAoQxWP3GEj2YGlA3EIR1zGTkFf8YJdH1LNuOWcMoOO3DKOk= ID Date Data Source [id number] 04/07/2021 08:19:33 AM EDT [facility] Name Value Range Interpretation Code Description Data Stephanie e(s) Supporting Document(s) History and Physical [facility] ZPLEIr0tCoUOBaCp74/KREcbJSYhd0WlQAntWWj2QSfqWYXxK6WaVUU2iG6dYPB0FUxHZjMwVtQfEAO4 lbm IoJedPDnRbPHMwDbeNPoFoQUfmHbefnXDmHZ1LpDB5JWBbO15aVUKnRVTcC3FqDNX0EYn+Oi5XPFWasK NiVG2UCqbQ9T6dc2eXDj1+wP2HRQ/otUFic/m2pL+ummD0pATSIfMGyUyQru48tsKcxjyjp7idieU8DP VT+qFRCwbrxC9Lx9KdkCgteU+PZMr224i9AhLH00Zt 3+lqQM25JmJ//LefEpt60HFTN9VWlwP3Bd2DN5R/A/9jL07neF9PhxtwksZTEglylmiVi1VbIbVFSrw/ qsEvSodhNpKBdwWodQH+CyG2Yrq1fQMDACvpAfOKOVVUYzUXwVsexE7SIbpC52VrR6cPKW3rNBCpYX/7 eN356LLINTpcwMi6v8g7MAWWipBzaLDCLOUGnxLZB/ 2Yw92B+nlj/eLmxQeOGA3roqPw0pHCT7cRSeYyxEdBxDvXbsvn7+uvcGu/KeadNDB+hD6uxseObqa3vx itm3m82D4OiYt+FRjpNsYFhvnJPZt5gP0L2IOSa/1n4CoOLgMlGSlhE5SMiHx0dT7rlSgnt+WQqm6NCW GCJwZmlxNb9xu1rAspBapboHqNgBrS2FvK10KekaH4 k63nTNIiT4OWMg7DG2eXKoyFnZgOjQ/+S14iQYcrchT/Hk+HV0L6+NHrmwxXDbOtcQiiAkuO3oxj8OAT Ly6RL35d9WwGi1jzYXSylU04QqRj1OrZ34t9TdE6WW94HgU9pv4k/gLhgiQP12khEDaojjoqbaD/c/L+ Q/es131/swmjgX6mrBR0oylbkPrBVoCtT7fFho3cWw rkeAO4q+z/oxv5r2gJePdEtGfczG5OWdbqj0QaTam9LmJHhkk2+YhQtVvYlorsBrqgqb60wYTYNC8Vmx S9CqK4fvEpeVziuIJ3P55AMSJqnXRDOUZsQU7N3uvJRSCG3+R4mAMpMTSOIfw+UUdC78sbhf2sdtafKK FtO5qzel2k2v4EdysncuHmerC4mpoiDiFMvcNkeye7 [file] ICAgICAgICAgICAgICAgICAgICAgICAgICAgICAgICAgICAgICAgICAgICAgICAgICAgICAgICAgICAg ICAgICAgICAgICAgICAgICAgICAgICAgICAgICAgICAgICAgICANCiAgICAgICAgICAgICAgICAgICAg ICAgICAgICAgICAgICAgICAgICAgICAgICAgICAgIC AgICAgICAgICAgICAgICAgICAgICAgICAgICAgICAgICAgICAgICAgICAgICAgICANCiAgICAgICAgIC AgICAgICAgICAgICAgICAgICAgICAgICAgICAgICAgICAgICAgICAgICAgICAgICAgICAgICAgICAgIC AgICAgICAgICAgICAgICAgICAgICAgICAgICAgICAN CiAgICAgICAgICAgICAgICAgICAgICAgICAgICAgICAgICAgICAgICAgICAgICAgICAgICAgICAgICAg ICAgICAgICAgICAgICAgICAgICAgICAgICAgICAgICAgICAgICAgICANCiAgICAgICAgICAgICAgICAg ICAgICAgICAgICAgICAgICAgICAgICAgICAgICAgIC AgICAgICAgICAgICAgICAgICAgICAgICAgICAgICAgICAgICAgICAgICAgICAgICAgICANCiAgICAgIC AgICAgICAgICAgICAgICAgICAgICAgICAgICAgICAgICAgICAgICAgICAgICAgICAgICAgICAgICAgIC AgICAgICAgICAgICAgICAgICAgICAgICAgICAgICAg ICANCiAgICAgICAgICAgICAgICAgICAgICAgICAgICAgICAgICAgICAgICAgICAgICAgICAgICAgICAg ICAgICAgICAgICAgICAgICAgICAgICAgICAgICAgICAgICAgICAgICAgICANCiAgICAgICAgICAgICAg ICAgICAgICAgICAgICAgICAgICAgICAgICAgICAgIC AgICAgICAgICAgICAgICAgICAgICAgICAgICAgICAgICAgICAgICAgICAgICAgICAgICAgICANCiAgIC AgICAgICAgICAgICAgICAgICAgICAgICAgICAgICAgICAgICAgICAgICAgICAgICAgICAgICAgICAgIC AgICAgICAgICAgICAgICAgICAgICAgICAgICAgICAg ICAgICANCiAgICAgICAgICAgICAgICAgICAgICAgICAgICAgICAgICAgICAgICAgICAgICAgICAgICAg ICAgICAgICAgICAgICAgICAgICAgICAgICAgICAgICAgICAgICAgICAgICAgICANCjw/gIRlN4drzPKa iiU2G6zbVy3GUe0XPO2vn0FmPPRcZGnrbsWiDheFRh QpATAvAzbMTzt6ZLjaAR5PrEAiE4MlK6QxRXklGZ7WDLTdJRKruEMtVOUqQNEyWxY4QWRhRHirWC2RnR HoRAwjALZyGFBeBjJnDZDmBBHyUUNuJDHxOIAVVSHuZRTvBgUeSYZiIOQkSIwmHXODOGF6WBXtUtIaET StDYWvXzIlEXUJGLX7XBQsJgKwEnBbXHSyGQ8JYWQj E064kbBcRRZQKx8+IVppqsYnFqwYIdHuYAWil6HbLEk7DC5GLXDlTaxxk7TnUiViHAKFXTheCI4ACXX7 RGM4MJRkJv9NIARdS996dzVdPZ6GSf2SGdXeIJ0nvy6FZoRhXNGyNecYNdd4TIflPG2IySFjGLsUSuEy XsvbL9ritIL8o7RjIBWrImUSGU4hJW3rGHSNSkAarI R5RnB7GxCrKoMeXHL5VvpoMJ6wWTnoVS9AOBB1SLkvVNDaZHKoQ7vKSyBfVXQjSIAopGhkVY6GInTmV3 MfuqDixGW7XcKlTMJSXk1+DUyofgWfZtuZYpT2QKFqo7ClNJr4VJ8EFUJfVAcyTN6FMACksM5lYWaxQZ 6KYjQ1MYBjMFKDJvOkA07rgFBqEBr3I0OpXnIcKWIt RmlsZXMgPDwvTmFtZXMgWyBdDQogID4+ID4+RDrnFX0WEDavuiDkBJFyRn0OORLsIYHdRZ2lFWMrGVVy L2P0bAxrCUCJYzJzK0aftgbiNK9mGPSdM564qHtczrOqTWMjEKPlMw2HZGGuVRK0MPZhxEEvMjFkQQFB MCrkUK6QvAPwHYB4aY9nAMacVOOnUPWkU7pEXsEekI wlKM90aLwcwzCqoUQxSSo+Wj4QSU5er4PsIXu0tyMgIPwgPSH5LKazHZBqYTAlLRWoRPT7KQG7BIJGMr SmSDMyZOJbSGbeFJCsPVHzyt9UFTIcMTC0TgouCoOoGGCsOUGvPClzSVQjQKt7RGD3BCTaMTJxKE6YUg MjAKGsVXWyOJydDDErGHMzmz2EAXXnWHFpVrz2JcZi POTpTOPcXAtbLMCtBOS4ULfiOAKyGLXoQV2MRuYyFNPmUGm7PDLgDMCyYJOcin1DWNSgYVEmAqlyKPKx RKNaZGToLKhyWRHvRHRhLfOaPZYyRFLrHU3GViYeLASuAHJ7VUFaNDWnCOTuzm6TZHEoMAJiQQM8QEFz TDWdJCQvHIbpURZiPOI8WgI5BQAuWISnOX0FHzZoXE XpMCspVqswJWAeWNAwcb5XIURzZUAzNyG5ABVyENAxSKIrTBxbBDLkGAS1Jbp4NZNdORDaSK0XHrWdAY QcMBk9UKCoGLDmGZOkyk5UWOFzNNNaPqEbZUUrURRaIKFrPIqmSYOoAXYiRmJcQCSeHRQcAQ2XGyUnYX VwJmW8GXEcSMAyOIIukw0ILECtJFYpQPG0HaItGXLq HGEsAInxWNBiGPV9QEW4NSXjGGXuXV4FOuGpORCuDlloTWZfETNiHQQkmh4MMMIwNPRpSsA1EGJtFVNf JXYzRBhaWSDtBYIdNYXdKUMqZDUoJF5PSaVcPTEoSkZ0EFTcQLTjKCXxci4XYFFvNMNeEgMhPZMgGSTr PIZzDZzrYWVsLLT7Sji0ZFZsMJZhAA2XUrThNDIsHt g4THTuGNDgYUTpsj5IOLBwPFV9CVy5JKLbTBEsICPyFCzaMRIiTRSbKOXtZEYcXUSkIC1WEsXcTSGnWV VuPDQsMQNwKTRrja3DAJQmRYG9FrZzQlKvYSYlGTOkVRfvBJXbFMTxFHL2DXZvKSVjRG9PRrBjMULfAA U9NSCbMXHrMMRzlf6WCCVeVHV8NvQ2AtUfICMvJNZb QRmmUTXaNCCcJkMcKLUiRKIlEW3TWcKoRXEgRUS6SsNoQMEvASCdam7POXOnEFQ4KEk8GzMcGNKrBRSq XUluHIIrYSR7VWWbDFNkRPFkDM8AQdShGDMmPCDhUABiUPAfUDVhsi9BGGEfNCL0GqA4HsJwWAMvZMPy DFksPXLrDFQ3PUNdRMWfOUViWQ6PYkCgEBBiKOW4RX VkDTRwJTQvsc7IVLOhWUR8SWD0QMBsUBNbRLIoAEdeNLKgVYE4BUWxSLKjBWIjOY7DKqDvFJYjGDy0Rn OmKGAjIUYqbn6VMQQyDEG6GWq5PRObRSQgLPJbKYlrLWRlBOF0XVN5ODGaMFWuXJ9FUmQmVAVbAnI7Wh EpALXlFJUveo2ZETOvFXC0JFZ8GARtOGXdADYmHPih TFRqVCC0VEViBCOvOEZbEE1SDdXqMDWxDiI0EPEqUVSaJXQgkh1XGCWwYDX1WWp8ZJQgJOWbWWXaFDiz LSKoTXX0CWY5OIKgRBTjKX2WVeUdMOAbObTlQWOxYNAlGRLbtt4IYWQyTZK5WCElZWOaJNNaWGFrQPkx KMUrAQn8Mtp8YGZiBJWgDD6JNhErQAHgVkkeXCBuVM BuWDYhas4OEODfOLI8EvKlEJNsUCYfLQXmPEkqWMRjBTq8MRF9TIGdZMRfVY6UPtItHPTkKlc5AKByMM PzMXNpxl0JWKTeJNI5KVX3OhHiVRKyJKPiSIjcAEPpYQz5KmFkCYFkBKBsJX3EKeRkYUTfQug0PERwDE LhRNUmxa0FAWAoMID9SZblBwXwPDQuBAZxSCf9imEm rOScMAq1GC1FH9HnhiXvEzMFHp1Wz762WDA6JEJnXr6TR3pjVf5sKFIbQKKAKh4TMZi3RiDtCXPxNcPo DdVlFKTcYuh4RodnIQD6HeP5FdW3EAZ+GOq3M9C5NeSfHUTkW2M5ICGkHwedWkP0QyytNZsdDwPpAz8a XSANCj4+GCxvnQNwgDrgUOUURqxmRLjlBMbfPZSYFu2T ID Date Data Source [id number] 04/05/2021 08:52:29 AM T [facility] Name Value Range Interpretation Code Description Data Stephanie rce(s) Supporting Document(s) [facility] YNNGLf1rLsQKKoHfe3OuCnPbBPOxFJ4rsbw5S9A6uMFzG1DtpPOad2fzB9AgP5PrPCOqHKIYOU6WeXNi jb2 [file] 9fmJ/KhgZMhete3WrlXs+2R7uel5S88eK4h+Brionna/R0dWb1JfdIxCdPNJxlkZZ/vNXxBPW3vrxDp53w2o Y/3wgy8BItsImufafXIkRu2niNQ70g3qG76w4v4Leh Zdcn1YiiReg4nr9r9IhQNqvFErN8Zl3OywXF6OiQ152vvyT+b0+Dw/mZ8G2yJ2rw/c83dT68EmsGjIbL hl34MTrlsHc1iYrc/GsdL6NQ0rx2W3MD1kI9SuZv99th52AfUR0nhd7HzY6B8X/EtmQbiSgLs4kIvCyS CyZ1qFsVSlr2bHI0EpnrqYdalNqhKJV+U6nYk5ZO9O k6t9bmKmNh1ArZftfllY6ArGFEgiBu68GRvHIIiVMsHpdEH+G1yxiy947d8gJZD7anO+R4QetsUUqh4F yFHBRPh95yPdZ9y9laeeuGFfVoI4d+i70/e2aHVYG/j6uNBFgdY0X6ZhRPZK4f9gM3kgKyh1Rz+maría/O [file] U1e5FVMpGFhwGE2vnaEuRWEsOydvJq9bxFP0YSOyNgfFTs6Tb7OxvoP0fjWnOdU3CNM3ZbNeJU1T ID Date Data Source [id number] 04/05/2021 08:52:16 AM EDT [facility] Name Value Range Interpretation Code Description Data Stephanie rce(s) Supporting Document(s) [facility] RQPQCf3bReNIXbJqh7UiVpFaFUBxXF5ufov9K2D1xFLvU5RcqIZvr1jfN3BkH4WlGWBlKMLXKM1BvABl jb2 [file] /u7//qn03j6Pl4y7nmoeOrt7/X506i+tj8/ QKJ9jbgYop+QdqKOfP+moHPrvPVvCfP+lkcp1MLL9asKI0O7Y9iCtEhUbfv74/y1jiPb7mdbGD94z/jK eai+p+dp79G7TnDxH2j1ltmcoyuYy25/X8DtTaGa/T7nnsgdbQVubUnpz4c9hbY/5p6db849g9x1d/u9 r3O/jeGY27e/jbaj08QbsO2R4YdIO7GodjceZ8v5pi nfer/9YkuEEhy47QS/K53qv/U76HrQ/eMulh2aHI9c6oSjnViTN0G5+pxgv9I02iQA9RsQs8/3ck52S8 dSwi2fxd1tzmRvEkZa47sYpP/Ak0tiTP4Cx3/LI9aRVeUpakTxcqXVXEo4CO1DEUy/J12fdP+idNbXH2 /Wt3/YajN2woCL+eTpte5Af1p31hDz979vYP/8zvri iftAJ0UohG/p+fApp68Igj5qoVIqxx+uor64qIiwCvuj/Z9ag50IqYFEoG/HOBqx83XWY268zi6d423U wz/Rl05gzx6M/uLBTgHYoctz16/7sKzWXOYF95FItbeA1Kp8AtX/oO5k6052i90UiU+uT/t+Q49kr942 86z9mfYDy40/ja7b7/qo+89Dv/N63eO/67Ou++969p [file] gvKg5gWfPbEZZHE9Oor8LhYZOfLPGZTl9+WuV6UDE7eGDlNxi7RFOdJGecCSNZIu== ID Date Data Source [id number] 04/05/2021 02:07:06 AM EDT [facility] Name Value Range Interpretation Code Description Data Stephanie rce(s) Supporting Document(s) Color of Urine [facility] Clarity of Urine [facility] Specific gravity of Urine by Refractometry automated 1.016 1.003 -1.030 [facility] pH of Urine by Automated test strip 6.0 5.0-8.0 [facility] Protein [Mass/volume] in Urine by Automated test strip Neg [facility] Glucose [Mass/volume] in Urine by Automated test strip Neg [facility] Ketones [Mass/volume] in Urine by Automated test strip Neg [facility] Bilirubin.total [Presence] in Urine by Automated test strip Negative [facility] Hemoglobin [Presence] in Urine by Automated test strip Neg [facility] Leukocyte esterase [Presence] in Urine by Automated test strip Negative A [facility] Nitrite [Presence] in Urine by Automated test strip Negati ve [facility] Leukocytes [#/area] in Urine sediment by Automated count 2 /HPF 0 -5 [facility] Erythrocytes [#/area] in Urine sediment by Automated count 0-3 [facility] Bacteria [#/area] in Urine sediment by Automated count Non e [facility] Epithelial cells.squamous [#/area] in Urine sediment by Auto mated count 4 /HPF None [facility] Mucus [#/area] in Urine sediment by Microscopy low power field None [facility] ID Date Data Source [id number] 04/05/2021 02:27:17 AM EDT [facility] Name Value Range Interpretation Code Description Data Stephanie rce(s) Supporting Document(s) Amphetamine [Presence] in Urine by Screen method Negative [facility] Benzodiazepines [Presence] in Urine [facility] Cannabinoids [Presence] in Urine by Screen method Negative [facility] Benzoylecgonine [Presence] in Urine by Screen method [facility] Methadone [Presence] in Urine by Screen method Negative [facility] Opiates [Presence] in Urine by Screen method Negative [facility] Oxycodone [Presence] in Urine by Screen method Negative [facility] Fentanyl+Norfentanyl [Presence] in Urine by Screen method [facility] Service comment [facility] Results below the indicated cutoff (ng/m L), are reported as"Negative." Note: for medical purposes only; not valid for legalor employment testing. ID Date Data Source [id number] 04/05/2021 01:30:00 AM EDT [facility] Name Value Range Interpretation Code Description Data Stephanie rce(s) Supporting Document(s) SARS-CoV-2 RNA 2019 nCoV Real-Time RT-PCR: NOT DETECTED [facility] This lab was ordered by [facility] and reported by [facility]. ID Date Data Source [id number] 04/05/2021 09:15:34 AM T [facility] Name Value Range Interpretation Code Description Data Stephanie rce(s) Supporting Document(s) Hemoglobin A1c/Hemoglobin.total in Blood by HPLC 4.7 % 4.0-6.0 [facility] (NOTE)<5.7% Average risk of diabetes (ADA)5.7-6.4% Increased risk of diabetes(ADA)>/= 6.5% Diagnostic for diabetes(ADA) Glucose mean value [Mass/volume] in Blood Estimated fr om glycated hemoglobin 88 mg/dL <126 [facility] ID Date Data Source [id number] 04/05/2021 01:49:12 AM EDT [facility] Name Value Range Interpretation Code Description Data Stephanie rce(s) Supporting Document(s) Leukocytes [#/volume] in Blood by Automated count 7.5 10*3/uL 4.5-13 [facility] Erythrocytes [#/volume] in Blood by Automated count 4.28 10*6/uL 4.1- 5.3 [facility] Hemoglobin [Mass/volume] in Blood 12.6 g/dL 11.5-15.5 [facility] Hematocrit [Volume Fraction] of Blood by Automated count 37.6 % 3 6-45 [facility] Erythrocyte mean corpuscular volume [Entitic volume] by Auto mated count 87.8 fL 80-96 [facility] Erythrocyte mean corpuscular hemoglobin [Entitic mass] by Automated count 29.5 pg 27-33 [facility] Erythrocyte mean corpuscular hemoglobin concentration [Mass/volume] by Automated count 33.5 g/dL 32.0-36.0 [facility] E[facility]th[facility] distribution width [Ratio] by Automated count 12.9 % 11.5-14.5 [facility] Platelets [#/volume] in Blood by Automated count 245 10*3/uL 150-400 [facility] Differential cell count method - Blood [facility] Neutrophils/100 leukocytes in Blood by Automated count 55 % [facility] Lymphocytes/100 leukocytes in Blood by Automated count 36 % [facility] Monocytes/100 leukocytes in Blood by Automated count 7 % [facility] Eosinophils/100 leukocytes in Blood by Automated count 2 % [facility] Basophils/100 leukocytes in Blood by Automated count 0 % [facility] Neutrophils [#/volume] in Blood by Automated count 4.13 10*3/uL 1.8-7 .0 [facility] Lymphocytes [#/volume] in Blood by Automated count 2.70 10*3/uL 1.2-4 .0 [facility] Monocytes [#/volume] in Blood by Automated count 0.51 10*3/uL 0-0.8 [facility] Eosinophils [#/volume] in Blood by Automated count 0.11 10*3/uL 0-0.5 [facility] Basophils [#/volume] in Blood by Automated count 0.01 10*3/uL 0-0.2 [facility] Nucleated erythrocytes/100 leukocytes [Ratio] in Blood by Automated count 0 /100{WBCs} 0-0 [facility] ID Date Data Source [id number] 04/05/2021 01:58:23 AM [facility] Value Range Interpretation Code Description Data Stephanie rce(s) Supporting Document(s) Prothrombin time (PT) 13.6 s 11.6-14.0 [facility] INR in Platelet poor plasma by Coagulation assay 1.09 [facility] Routine intensity oral anticoagulation I NR is typically 2.0-3.0. Target INR must be clinically individualized. ID Date Data Source [id number] 04/05/2021 02:22:57 AM [facility] Value Range Interpretation Code Description Data Stephanie rce(s) Supporting Document(s) Acetaminophen [Mass/volume] in Serum or Plasma 10.0-30.0 L [facility] ID Date Data Source [id number] 04/05/2021 02:22:57 AM [facility] Value Range Interpretation Code Description Data Stephanie rce(s) Supporting Document(s) Thyrotropin [Units/volume] in Serum or Plasma 2.870 u[IU]/mL 0.270-4. 200 [facility] ID Date Data Source [id number] 04/05/2021 02:22:57 AM [facility] Value Range Interpretation Code Description Data Stephanie rce(s) Supporting Document(s) Albumin [Mass/volume] in Serum or Plasma by Bromocresol green (BCG) dye binding method 4.2 g/dL 3.5-5.2 [facility] Bilirubin.total [Mass/volume] in Serum or Plasma 0.2 mg/dL <1.2 [facility] Calcium [Mass/volume] in Serum or Plasma 8.8 mg/dL 8.6-10.0 [facility] Chloride [Moles/volume] in Serum or Plasma 107 mmol/L 98-107 [facility] Creatinine [Mass/volume] in Serum or Plasma 0.59 mg/dL 0.50-0.90 [facility] Glucose [Mass/volume] in Serum or Plasma 91 mg/dL 70-140 [facility] Alkaline phosphatase [Enzymatic activity/volume] in Serum or Plasma 113 U/L 35-104 H [facility] Potassium [Moles/volume] in Serum or Plasma 4.0 mmol/L 3.4-5.1 [facility] Protein [Mass/volume] in Serum or Plasma 7.3 g/dL 6.4-8.3 [facility] Sodium [Moles/volume] in Serum or Plasma 140 mmol/L 136-145 [facility] Aspartate aminotransferase [Enzymatic activity/volume] in Serum or Plasma 29 U/L <32 [facility] Urea nitrogen [Mass/volume] in Serum or Plasma 13 mg/dL 6-20 [facility] Osmolality of Serum or Plasma by calculation 290 mosm/kg 275-300 [facility] Creatinine/Urea nitrogen [Mass Ratio] in Serum or Plasma 22 [facility] Bicarbonate [Moles/volume] in Serum 23 mmol/L 22-29 [facility] Alanine aminotransferase [Enzymatic activity/volume] in Seru m or Plasma 40 U/L <33 H [facility] Anion gap 3 in Serum or Plasma 10 mmol/L 8-15 [facility] Glomerular filtration rate/1.73 sq M pre dicted among non-blacks [Volume Rate/Area] in Serum or Plasma by Creatinine-based formula (MDRD) >6 0 [facility] Glomerular filtration rate/1.73 sq M pre dicted among blacks [Volume Rate/Area] in Serum or Plasma by Creatinine-based formula (MDRD) >60 [facility] ID Date Data Source [id number] 04/05/2021 02:22:57 AM [facility] Value Range Interpretation Code Description Data Stephanie rce(s) Supporting Document(s) Ethanol [Mass/volume] in Serum or Plasma Negative [facility] ID Date Data Source [id number] 04/05/2021 02:22:57 AM T [facility] Value Range Interpretation Code Description Data Stephanie rce(s) Supporting Document(s) Salicylates [Mass/volume] in Serum or Plasma 3.0-30.0 L [facility] ID Date Data Source [id number] 04/05/2021 08:42:04 AM [facility] Value Range Interpretation Code Description Data Stephanie rce(s) Supporting Document(s) Choriogonadotropin.beta subunit [Moles/volume] in Serum or Plasma <5 [facility] ID Date Data Source [id number] 04/05/2021 08:53:54 AM T [facility] Value Range Interpretation Code Description Data Stephanie rce(s) Supporting Document(s) Cholesterol [Mass/volume] in Serum or Plasma 155 mg/dL <200 [facility] Triglyceride [Mass/volume] in Serum or Plasma 118 mg/dL <150 [facility] Cholesterol in HDL [Mass/volume] in Serum or Plasma 40 mg/dL >50 L [facility] Cholesterol in LDL [Mass/volume] in Serum or Plasma by calcu lation 91 mg/dL <100 [facility] Cholesterol in VLDL [Mass/volume] in Serum or Plasma by calc ulation 24 mg/dl 16-42 [facility] Cholesterol non HDL [Mass/volume] in Serum or Plasma 115 mg/dL <130 [facility] ID Date Data Source [id number] 04/05/2021 02:51:14 AM EDT [facility] Service Cmnt XXX-Imp : NoneRespiratory P CR Panel : PCR ResultsMicroorganism XXX Cult : See Labs Tab for 2019 nCoV RT-PCR resultsHAdV DNA QI CORDELL+non-probe : Not DetectedHCoV [id number] Nph QI CORDELL+non-probe : Not DetectedHCoV [id number] Nph QI CORDELL+non-probe : Not [id number] RNA Nph QI CORDELL+non-probe : Not [id number] RNA Upper resp QI CORDELL+probe : Not [...] DNA Nph Q CORDELL+non-probe : Not DetectedB [id number] DNA Nph CORDELL+non-probe : Not Detected Name Value Range Interpretation Code Description Data Stephanie rce(s) Supporting Document(s) ID Date Data Source [id number] 04/05/2021 02:50:27 AM EDT [facility] Name Value Range Interpretation Code Description Data Stephanie rce(s) Supporting Document(s) Specimen source [Identifier] of Unspecified specimen [facility] SARS-CoV-2 RNA 2019 nCoV Real-Time RT-PCR: NOT DETECTED [facility] Assay Performed [facility] Patients first test for condition [facility] 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 [facility] Patient has symptoms related to condition [facility] When did you start to experience these symptoms [Date and time] [Phen X] [facility] Patient was hospitalized because of this condition [facility] patient was admitted to ICU for condition [facility] Patient resides in a congregate care setting [facility] status [facility] ID Date Data Source [id number] 04/04/2021 01:23:48 PM EDT [facility] NT INFORMATIONPatient MRN Name Date of Age Gend*PT [id number] Yareli Hatch 00 20 years F CPEPPT Location Admission Date/Time Visit ID Attending [id number] 04/04/21 0011 --- Laureen Luis MD([id number]) EPI ID CSN Admitting Provider [id number] ---CPEP Discharge NotePatient Name: Yareli Hatch PREFERRED [...] by: (HPI- DR RIVER)History limited by: (No limitation)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 She has been residing at a [place], [place] but left there to come to stay at [facility]. She saychristiana doesn't feel safe [...] been "pretty low". Outpatient provider glory is [facility] where she has a ther apist,Velasquez [...] Stay Tx helpful?Drug/Alcohol Rehab? Records Requested? Comments [facility] March 2019 Inpatient Suicidal thoughts 24 hours No [facility] 2017 Inpatient Suicidal thoughts 1 year [facility] 2007 Inpatient SI a few monthsTitleDocumented / [...] IntactRecent Memory: IntactInsight: FairJudgment: LimitedOrientation: Appropriately Oriented a3Dcxuqkyr Toward Examiner: (Initially guarded, became cooperative )Associations: [...] suicidal ideation. [facility] On [facility], has outpatient [...] States they feel safe to return to [facility]. Denies homicidalideation. Offers future oriented thought content, [...] PlanAssessment / Discharge PlanningPlan/Assessment #1: [facility].Plan/Assessment #2: Continue outpatient medications, no changes made. Pt reportspoor adherence to medications in recent past; notably has been in and out ofpsychiatric units over the past several weeks.Progress Towards DischargePatient Progress Towards DischargePatient progress towards discharge:: StableBilling Code: [id number] signed byLaureen Luis MD04/04/21 1323 Name Value Range Interpretation Code Description Data Stephanie rce(s) Supporting Document(s) ID Date Data Source [id number] 04/04/2021 06:32:48 AM EDT [facility] NT INFORMATIONPatient MRN Name Date of Age Gend*PT [id number] Yareli Hatch 00 20 years F CPEPPT Location Admission Date/Time Visit ID Attending [id number] 04/04/21 0011 --- --- EPI ID CSN Admitting Provider [id number] ---CPEP PSYCHIATRIC ASSESSMENTPatient Name: Yareli Galindo at [...] by: patient, medical recordsHistory limited by: (No limitation)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 She has been residing at a [place] but left there to come to stay at [facility]. She saychristiana doesn't feel safe [...] been "pretty low". Outpatient provider glory is [facility] where she has a therapist,Velasquez Orosco. [...] Stay Tx helpful?Drug/Alcohol Rehab? Records Requested? Comments [facility] De Jesus Gleason March 2019 Inpatient Suicidal thoughts [address] [facility] 2017 Inpatient Suicidal thoughts 1 year [facility] 2007 Inpatient SI a [...] IntactRecent Memory: IntactInsight: LimitedJudgment: LimitedOrientation: Appropriately Oriented c7Neetteym Toward Examiner: CooperativeAssociations: No loosening evidentFund of [...] vague suicide ideation, history of multiple low xpshd-rjldc-mjshaql attempts.FirearmsWas threat made to harm self/others with [...] No changes [] No side effectsBilling Code: [id number] signed byDarren River MD04/04/21 0632 Name Value Range Interpretation Code Description Data Stephanie rce(s) Supporting Document(s) ID Date Data Source [id number] 04/03/2021 03:09:00 PM EDT [address] DISCHARGE SUMMARYPATIENT NAME: YARELI HATCH MR#: [id number] PHYSICIAN: BOGDAN MACIAS MDAUTHOR: Bogdan Macias MD DATE: 04/01/21 RM#: [id number] DATE: 04/03/21HistoryIdentificationPatient is 20-year-old female, currently single, lives at [facility], pastpsych history of borderline personality disorder, bipolar disorder, PTSDChief ComplaintSuicidal ideationHistory of Presenting IllnessInformation from emergency room,he patients chief complaint is Pt presents tot ED with [place] [employer] due to Pt contacting them stating that she issuicidal with a plan. Pt reports increased depression and being suicidal with aplan to hang self, overdose or jump off a bridge. Pt reports that she was [facility] since and transferred to [facility] yesterday anddischarged. Pt reports that she is still feeling suicidal and was unable tocontract for safety so doesn't know why they discharged her. Pt reportsincreased stress due to; not feeling safe at her [facility] residence due to anotherresident, increased family conflict due to being transgender and an ex being inprison. Pt states that she has not been following the rules at [facility]. Pt deniesHI. Pt denies any recent suicide attempts, last being February 2020 by overdose.Pt does have an extensive history of suicide attempts, reporting 10+. Ptreports self harm by scraping her arm with a knife three weeks ago. [facility] [place]. Pt reportsthat she has been eating more [...] she wants nidhi to crisis center in [place] but discussed with her regarding that she [...] open to go back to [facility] andif she needed help she will [...] is currently single, lives at [facility], getting DSS supportand poor family support [...] mental health unit because shedoes not like [facility] people how they treat her mental [...] wanting to go to crisis center in [place] but that did not work out aspatient was not accepted and later on patient wanting a to go to [facility] again aswell. Patient was continued on [...] InstructionsPrescriptionsContinue taking these medications:IBUPROFEN (IBUPROFEN) 400 MG [id number] MILLIGRAM Orally EVERY 6 HOURS NEEDED as needed for HeadacheQty = 21Loratadine* (Claritin*) 10 MG [id number] MILLIGRAM Orally DAILYDays = 30 Qty = 30NICOTINE RESIN COMPLEX (Nicotine Gum) 2 MG GUM2 MILLIGRAM Orally EVERY 2 HOURS NEEDED as needed for Nicotine Cravingnot to exceed 8 pieces per dayDays = 30 Qty = 240PROPRANOLOL HCL (Inderal*) 10 MG [id number] MILLIGRAM Orally TWICE DAILYDays = 30 Qty = 60TOPIRAMATE (TOPAMAX) 25 MG HTSQQX97 MILLIGRAM Orally DAILYDays = 60 Qty = 30SERTRALINE (Zoloft*) 50 MG [id number] MILLIGRAM Orally DAILYDays = 30 Qty = 30MONTELUKAST SODIUM (MONTELUKAST) 10 MG UVFUMC81 MILLIGRAM Orally DAILYDays = 30 Qty = 30Aripiprazole* (Abilify*) 10 MG DMFTIP81 MILLIGRAM Orally DAILYPRAZOSIN HCL (PRAZOSIN HCL) 2 MG CAPSULE2 MILLIGRAM Orally AT BEDTIMEOlanzapine* (Zyprexa*) 5 MG TABLET5 MILLIGRAM Orally AT BEDTIMEStart taking the following new medications:Aripiprazole (Abilify Maintena) 400 MG SUSER.YKG008 MILLIGRAM Intramuscularly J10ERaa = 1No RefillsInstructions:last im inj received 04/03/21Discharge Activity: As toleratedDischarge diet: RegularFollow-upFollow up with your Primary care physicianFollow up with therapiest and psychiatrist as scheduledalso recommended outpt chemical dependencyReferralsOrdered ReferralsCOMMUNPHOENIX [place] [address] In person appointment at [facility] (#[phone])on April 04 at 1:00 pmwith [place].[facility] [place] [address] In person appointment at [facility] (#[phone])on April 15 at 9:[address] Giles.DATE SIGNED: 04/03/21 Electronically SignedTIME SIGNED: [id number] BOGDAN MACIAS MD Name Value Range Interpretation Code Description Data Stephanie rce(s) Supporting Document(s) ID Date Data Source [id number] 04/03/2021 09:36:00 AM EDT [facility] [id number] NAME: YARELI HATCH#: [id number] PHYSICIAN: BOGDAN MACIAS [facility] #: [id number] ADM. DATE: 04/01/21PATIENT : 00 DISCH. DATE: [...] follow-upappointmentDischarge InformationDISCHARGE INFORMATION* [facility] and allowing [facility] toserve you* Our Goal is to provide the highest quality of care.* This discharge information is to help you better understand your diagnosisand medication* Avoid taking rmnn-ohf-dmhjxae medicines unless approved by your physician.* Take your medications as prescribed. DO NOT stop any medications unlessapproved first* Weigh yourself daily. Report any gain of 5 lbs in a week* 24 Hour Crisis HOTLINE available: Call Reachout at [phone]* Chem. Dependency: Walk in Clinics [place] ([phone]) and [place] ([phone]) anytime Wednesday thru Wednesday 8 to 10am. [place] ([phone]) anytimeMond thru Wednesday 8 to 10am. [facility] ([phone]) Wednesday or Wednesday from 8to 10am (Bring $30 to First [facility]) SMOKIN G CESSATION* Smoking is dangerous to your health. It delays the healing process, andworks against your medications. Not smoking will improve your health* Our hospital participates with the Opt-to-Quit program. You will be contactedafter discharge by the [facility] Smoker's Quitline for support with tobaccocessation. You have the option once contacted to refuse this service.* You can also go online to www.Outsell. Free nicotine replacementsare available Attention* You should [...] rce(s) Supporting Document(s) ID Date Data Source [id number] 04/02/2021 02:31:00 PM EDT [address] PSYCHIATRIC ASSESSMENTPATIENT NAME: YARELI HATCH MR#: [id number] PHYSICIAN: BOGDAN MACIAS MDAUTHOR: Colleen SMITH,Bogdan DATE: 04/01/21 #: 3RDHistoryIdentificationPatient is 20-year-old female, currently single, lives at [facility], pastpsych history of borderline personality disorder, bipolar disorder, PTSDChief ComplaintSuicidal ideationHistory of Presenting IllnessInformation from emergency room,he patients chief complaint is Pt presents tot ED with [place] [employer] due to Pt contacting them stating that she issuicidal with a plan. Pt reports increased depression and being suicidal with aplan to hang self, overdose or jump off a bridge. Pt reports that she was [facility] since and transferred to [facility] yesterday anddischarged. Pt reports that she is still feeling suicidal and was unable tocontract for safety so doesn't know why they discharged her. Pt reportsincreased stress due to; not feeling safe at her [facility] residence due to anotherresident, increased family conflict due to being transgender and an ex being inprison. Pt states that she has not been following the rules at [facility]. Pt deniesHI. Pt denies any recent suicide attempts, last being February 2020 by overdose.Pt does have an extensive history of suicide attempts, reporting 10+. Ptreports self harm by scraping her arm with a knife three weeks ago. [facility] [place] Pt r eportsthat she has been eating [...] she wants togo to crisis center in [place] but discussed with her regarding that she [...] open to go back to [facility] andif she needed help she will [...] is currently single, lives at [facility], getting DSS supportand poor family support [...] the emergency room back to [facility] if patientmaintains her safety. 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 Patient needsextensive [...] rce(s) Supporting Document(s) ID Date Data Source [id number] 04/01/2021 08:58:00 PM EDT [facility] [address] [address]CDROSEI AND PHYSICALPATIENT NAME: YARELI HATCH MR#: [id number] PHYSICIAN: BROOKLYN ONEILL MDAUTHOR: Neil Yusuf MD DATE: 04/01/21 RM#: [id number] & PHYSICAL DATE: 04/01/21 : 00EVALUATION TIME: 2113HistoryChief Complaint/Admit ReasonDepression and suicidal ideations.History of Presenting Zvnybvl11-sewn-eak female who is morbidly obese presents to the ED complaints ofsuicidal ideations and increased depression. While in the ED patient patienttried to elope and also became aggressive to medical staff was also hitting herhead on the wall. Patient eventually required medications in the ED and wasplaced on four-point restraints. I came to [facility] for her history and physical. [...] 122/69 122/69B/P MeanPulse Ox 98O2 DeliveryO2 Flow UrkhCaU4Jvywplgc ExaminationGeneral Appearance Patient refused to be examined.Data ReviewLaboratory DataRecent Labs-48 hours03/30403 3448 0965ChemistrySodium (136 - 147 mmol/L) 141Potassium (3.5 - [...] CloudyUrine pH (5.0 - 8.0) 6.0Ur Specific Borden (1.010 - 1.025) 1.031 HUrine Protein (Negative) [...] rce(s) Supporting Document(s) ID Date Data Source [id number] 03/31/2021 09:46:52 AM EDT [facility] Name Value Range Interpretation Code Description Data Stephanie rce(s) Supporting Document(s) ED Provider Notes [facility] UGPQDq8oWwAXJaKr92/DNTzhIMIgq3TeJWaaUYv2RAqeOGWvE2FbBWO0fL0vFIF4YZuIGaPuNpIbULKh lbm [file] 1mUAYXWW0jizAF1PQYh+lGRUjbcrXAfh4tReg0d+RESEARCH ENVIRONMENTAL ENGINEER [file] E+DQogICAgICAgICAgICAgICAgICAgICAgICAgICAg ICAgICAgICAgICAgICAgICAgICAgICAgICAgICAgICAgICAgICAgICAgICAgICAgICAgICAgICAgICAg ICAgICAgICAgICAgDQogICAgICAgICAgICAgICAgICAgICAgICAgICAgICAgICAgICAgICAgICAgICAg ICAgICAgICAgICAgICAgICAgICAgICAgICAgICAgIC AgICAgICAgICAgICAgICAgICAgICAgDQogICAgICAgICAgICAgICAgICAgICAgICAgICAgICAgICAgIC AgICAgICAgICAgICAgICAgICAgICAgICAgICAgICAgICAgICAgICAgICAgICAgICAgICAgICAgICAgIC AgICAgDQogICAgICAgICAgICAgICAgICAgICAgICAg ICAgICAgICAgICAgICAgICAgICAgICAgICAgICAgICAgICAgICAgICAgICAgICAgICAgICAgICAgICAg ICAgICAgICAgICAgICAgDQogICAgICAgICAgICAgICAgICAgICAgICAgICAgICAgICAgICAgICAgICAg ICAgICAgICAgICAgICAgICAgICAgICAgICAgICAgIC AgICAgICAgICAgICAgICAgICAgICAgICAgDQogICAgICAgICAgICAgICAgICAgICAgICAgICAgICAgIC AgICAgICAgICAgICAgICAgICAgICAgICAgICAgICAgICAgICAgICAgICAgICAgICAgICAgICAgICAgIC AgICAgICAgDQogICAgICAgICAgICAgICAgICAgICAg ICAgICAgICAgICAgICAgICAgICAgICAgICAgICAgICAgICAgICAgICAgICAgICAgICAgICAgICAgICAg ICAgICAgICAgICAgICAgICAgDQogICAgICAgICAgICAgICAgICAgICAgICAgICAgICAgICAgICAgICAg ICAgICAgICAgICAgICAgICAgICAgICAgICAgICAgIC AgICAgICAgICAgICAgICAgICAgICAgICAgICAgDQogICAgICAgICAgICAgICAgICAgICAgICAgICAgIC AgICAgICAgICAgICAgICAgICAgICAgICAgICAgICAgICAgICAgICAgICAgICAgICAgICAgICAgICAgIC AgICAgICAgICAgDQogICAgICAgICAgICAgICAgICAg ICAgICAgICAgICAgICAgICAgICAgICAgICAgICAgICAgICAgICAgICAgICAgICAgICAgICAgICAgICAg SOEcEIDuRYTqLWYrPSXnCFWdFMNkCJd4W5nxYXLaLFWtFO7jPAc9Il4+PIbRBqOzWTB5fzNolD8VUA0q c8KrPVflKKBaj3FbKGv8ZJ3BXYWcVZxiDW9SIRhlsv 7TZXNcAFTnuMKVy4duWfEdFWY9LVViJntkEV2WOYNwJ5uwwlQwEXZwFFTWKMspGZFQKBpiPRXLOSUwSF MpBnYwWBzzVD1Jd6HnoEB7MOp+Be7FSH5cs1DqHQgjIJFjME6lto0IKJiEMkGeM4PfmeO7TEW1AHAeZk 7CWCNnAPLcwNDxSVZzFMGYEbNwT4ZgwO97DJXURv0+ DQotayYlXooJWbJ7KWFow5CeSHi2ID3UTGOeFIf7zNZxJYJuAIZmxaquPTWxNl30HGZpTsvdZpNmOldy neGMUNFfwrytSPBGQHKajSL4OlZgHgPcTETzWAzgGhXSVRkLKuDvU7Kfv4QcRvD0GMWvMmLrTZwiZYWk EnW9JI22vQpqDI1WOBDpWGKvMO09UUN6DGBtAo8LEg 6AHmSlGW0lff8JWtZyUZWkXobRYup2RPohGD1FiKIrN6LahEHdy5eDVzRyT9HMXZBvOCMjKg7GQPVrBe SvECFdJXmaXE9bEOTxYTODiDzxeyG3UY8PWO8hwrDvPC3MPoYqCz8sIs1OPnXkE1KlR2BvNZVrRRVNHA bzTK8JNWogZS6qYE4Ms8TKhAMguR9xsl8UAPTlKUXa Nrbmlq5KJdijZ7B2qRhpJAZpMpGiKYJRXWghEQ9VDDZmPEE8ADMaYhQmACVYHlQpS46hJZ8EV4Kck98a MhP4BNWuVoKmPZgvQZ29tPacckDfvLYepJzxFS4LBx8+DQplbmRvYmoNCnhyZWYNCjAgMzcNCjAwMDAw OQCqOVRfOgA2BlRuPq1BPYEqTUWqKVBmJsKtCKJvFR AgONrxPTYiYMX1KWK0RNRySOWwLC1WJbUmSLCpEgGaWdVtOPNqPSCpkt5AUFCmUEKwVRJ1HrNvFYSeUK KhJZlhLYKfLQAfVPSkUTYwVAVuLE5KEpBkKNCuHZKzMmQcBBMaCVLnmm9ZVXXvWUZlODNnUXOvOOYtEQ CxKBxpMONkXHB7XoQ4DOWfPXCeYW9GEeSpJRAjKUr6 MVErJTEkLNFupu6BEFHtDTEdROF1XfEgLOBcWSYhRXalHCBwWFQ9GsGyAWMfERRcIV6DRnVqKMAbEAf4 LzQzKTGsBAIvbp0YWSQjOCNlVCJmVKUxKQPdQPXkTDznFRShDMChVzM4FOUmFYKzGZ1XSgBvGEKlQYV0 TQLzTSXgGDQfyd2IWVCdBWCvVDj4QJAiXERdUZZrZH qaJLRwFNXsDGhnCRYhSFNmRB8DAmOrCFDfIKSvZSTpWRNeAZIbgo3YXAFbMNHbJkGvBAOmFQKaHSDoFC riEZPlXFMnDMSkMUUiENMyVM5EHyPtXNKgDHX7LNVwKJElLIOttg9HMHBrHWUcWIW0TGZrOIDvKBIfZL clRNGfLZG2KxjoAZXkCXVhZQ1EAsFdACXeCIR1SSLh WWTgSRDfdi2ZDOMxUPWpFvAzTsRcWGHbNKRjBVavYFJyPEX9HmEjJKVdFEGvAF4RNzXySFFgMkn2HxUn SVKuLRWkxn1QWSQsDGHrRTP5URGiYFHuMXFkFRuxFUVgYBE1WlL2BPQzRSAyEA4LMjHzQJPxHlnyULtn WEFcCYWtwn0WYRDbMRAaIAN3XbMfQDIkRITrUJwgBE KfZWC8QCB0WEZyLNEpBF9HDbUlFSMvQnb5BHCsHJCzFVHzdk6EJOFwSHKyBLZ9UJIeUEZoATWrWRpyLL SjTSLkMIEmTZAsHWLlQQ1DOcJcFOEkGkG7RxEfTROsZRHtmd0ZrPVyvKgotw1AIWnVJg3WzUyzZEO4MU scWj6ozIZlZsOcHJINTf6WvgCeGPFlBZPTJDekJMHk WYLbDMTjUTJ8YkOeMlG3VUNoVVMaHLF0XbEuQURjFWKoYaX2PcDtAXXbQTCxDPMpPVc3SiT4JLR3ZBmq V3XaGVTdWfU+LP6mRUt+Ra7Br4KwljT3xcHmURofYPfcAK9IBZVMZ7XNEr== ID Date Data Source [id number] 03/30/2021 11:59:00 PM EDT [facility] Name Value Range Interpretation Code Description Data Stephanie rce(s) Supporting Document(s) WBC 11.60 x10E3/uL 4.0-10.5 [facility] RBC 4.43 x10E6/uL 4.20-5.40 [facility] Hemoglobin 13.1 g/dL 12.0-16.0 [facility] Hematocrit 39.0 % 37.0-47.0 [facility] MCV 88.0 fL 81.0-99.0 [facility] MCH 29.6 pg 27.0-31.0 [facility] MCHC 33.6 g/dL 32.7-35.6 [facility] RDW 11.9 % 11.5-14.0 [facility] Platelet count 283 x10E3/uL 150-450 N [facility] ital MPV 9.7 fl 6.9-9.5 [facility] Neutrophils 68.5 % 34-64 [facility] Lymphocytes 23.7 % 25-45 [facility] Monocytes 6.5 % 1.7-10.6 [facility] Eosinophils 0.7 % 0.4-7.0 [facility] Basophils 0.2 % 0.1-2.0 [facility] Imm. Gran. 0.4 % 0.1-2.0 [facility] Abs. Neutro. 7.95 x10E3/uL 1.2-7.6 [facility] [place] Abs. Lymph. 2.75 x10E3/uL 1.0-3.5 [facility] Abs. [place]. 0.75 x10E3/uL 0.1-1.0 [facility] Abs. Eosin. 0.08 x10E3/uL 0.1-0.7 [facility] Abs. Baso. 0.02 x10E3/uL 0.0-0.1 [facility] Abs. Imm. Gran. 0.05 x10E3/uL 0.0-0.1 N [facility] spital ANRBC% 0 % 0 [facility] ID Date Data Source [id number] 03/31/2021 12:19:00 AM EDT [facility] Name Value Range Interpretation Code Description Data Stephanie rce(s) Supporting Document(s) SALICYLATE < 1.7 mg/dL 0.0-20.0 [facility] ID Date Data Source [id number] 03/31/2021 12:19:00 AM EDT [facility] [place] Name Value Range Interpretation Code Description Data Stephanie rce(s) Supporting Document(s) ETOH NONE DETECTED [facility] NONE DETECTED ID Date Data Source [id number] 03/31/2021 12:19:00 AM EDT [facility] Name Value Range Interpretation Code Description Data Stephanie rce(s) Supporting Document(s) ACETAMINOPHEN < 2.0 ug/mL 0-30 [facility] ID Date Data Source [id number] 03/31/2021 12:19:00 AM EDT [facility] Name Value Range Interpretation Code Description Data Stephanie rce(s) Supporting Document(s) GLU 106 mg/dL 70-110 [facility] Patients taking Sulfasalazine may have f alsely depressedGlucose levels. Patients taking Sulfapyridine may havefalsely elevated Glucose levels. Patients should be drawnfor Glucose before the initial administration of eitherdrug. BUN 15 mg/dL 7-23 [facility] CRE 0.590 mg/dL 0.500-1.300 [facility] GFR > 60 mL/min [facility] CHLORIDE 107 mmol/L 99-110 [facility] NA 141 mmol/L 136-147 [facility] POTASSIUM 4.1 mmol/L 3.5-5.1 [facility] TCO2 24 mmol/L 20-33 [facility] ANION GAP 14.1 10.0-20.0 [facility] CA 8.6 mg/dL 8.3-10.7 [facility] ALKALINE PHOS 125 U/L 45-117 [facility] TP 7.5 g/dL 6.0-7.8 [facility] ALB 3.7 g/dL 3.5-5.0 [facility] ESRD Dialysis patient Albumin reference range: 2.9-4.4 g/dL GL 3.8 g/dL 2.3-3.5 [facility] A/G 1.0 1.0-2.5 [facility] T. BILIRUBIN 0.3 mg/dL 0.1-1.1 [facility] The Dimension Lyman Total Bilirubin is n ot recommended forpatients undergoing treatment with eltrombopag (Promacta)due to the potential for falsely elevated results. ALTI 52 U/L 6-54 [facility] Patients taking Sulfasalazine and/or Sul fapyridine may havefalsely depressed ALT levels. Patients should be drawn forALT before the initial administration of either drug. AST 30 U/L 6-38 [facility] Patients taking Sulfasalazine and/or Sul fapyridine may havefalsely depressed AST levels. Patients should be drawn forAST before the initial administration of either drug. ID Date Data Source [id number] 03/30/2021 11:45:00 PM EDT [facility] Name Value Range Interpretation Code Description Data Stephanie rce(s) Supporting Document(s) LCOVID-19, CORDELL NEGATIVE [facility] This lab was [facility] by [facility] and reported by PSYCHIATRIC. ID Date Data Source [id number] 03/31/2021 12:12:00 AM EDT [facility] [place] Name Value Range Interpretation Code Description Data Stephanie rce(s) Supporting Document(s) COVID-19, CORDELL NEGATIVE NEGATIVE [facility] Methodology: Isothermal Nucleic Acid Amp lification [...] Emergency Use Authorization. ID Date Data Source [id number] 03/31/2021 12:33:00 AM EDT [facility] Name Value Range Interpretation Code Description Data Stephanie rce(s) Supporting Document(s) PCP VISTA NEG NEGATIVE [facility] MINIMUM LEVEL OF DETECTION IS 25 ng/ml BENZODIAZEPINES NEG NEGATIVE [facility] MINIMUM LEVEL OF DETECTION IS 200 ng/ml COCAINE VISTA NEG NEGATIVE [facility] MINIMUM LEVEL OF DETECTION IS 300 ng/ml AMPHETAMINES NEG NEGATIVE [facility] MINIMUM LEVEL OF DETECTION IS 1000 ng/ml BARBITURATES NEG NEGATIVE [facility] CUTOFF CONCENTRATION IS 200 ng/ml CANNABINOIDS NEG NEGATIVE [facility] CUTOFF CONCENTRATION IS 50 ng/ml METHADONE VISTA NEG NEGATIVE [facility] MINIMUM LEVEL OF DETECTION IS 300 ng/ml OPIATE VISTA NEG NEGATIVE [facility] MINIMUM DETECTION LEVEL IS 300 ng/ml ID Date Data Source [id number] 03/31/2021 12:13:00 AM EDT [facility] [place] Name Value Range Interpretation Code Description Data Stephanie rce(s) Supporting Document(s) URINE RBC None Seen NONE SEEN [facility] URINE WBC 0-2 WBCs/HPF NONE SEEN [facility] URINE BACTERIA Few NONE SEEN [facility] URINE EPI. Moderate NONE SEEN [facility] ID Date Data Source [id number] 03/31/2021 12:13:00 AM EDT [facility] Name Value Range Interpretation Code Description Data Stephanie rce(s) Supporting Document(s) URINE COLOR Yellow [facility] UAPR Cloudy [facility] UGLU Negative NEGATIVE [facility] URINE BILIRUBIN Negative NEGATIVE [facility] UKET Negative NEGATIVE [facility] USG 1.031 1.010-1.025 [facility] UBLO Negative NEGATIVE [facility] UpH 6.0 5.0-8.0 [facility] UPRO Trace Negative [facility] UUB 1.0 mg/dL 0.2-1.0 [facility] UNIT Negative Negative [facility] ULEU Trace Negative [facility] ID Date Data Source [id number] 03/31/2021 12:13:00 AM EDT [facility] Name Value Range Interpretation Code Description Data Stephanie rce(s) Supporting Document(s) HCG QUAL URINE Negative [facility] ID Date Data Source [id number] 04/01/2021 06:53:00 PM EDT [facility] Physician DocumentationClaxton-Wainscott M edical CenterName: Yareli DuvallAge: 20 yrsSex: FemaleDOB: 2000MRN: [id number] Date: 03/30/2021Time: 23:26Account#: [id number] 1Private MD: NONE, - Per PatientED Physician [...] symptoms: Pertinent negatives: abdominal pain, chestpain, fever, cz5wghuhfyh, nausea, shortness of breath, vomiting. Patient is brought in [facility] evaluation. Patient reports suicidal ideation with [...] Eyes: Negative for acute changes.ENT: Negative for zk8cfkop discharge, rhinorrhea, sinus congestion. Neck: Negative for [...] name: ETOH; Complete Time: 00::38 Order name: Sjmlcdsee819/1923:38 Order name: Salicylate Level; Complete Time: 00::38 [...] Order name: Medically Cleared for Eval by-Psychosocial, Bindery Helper (YE):02 Order name: Mental Health Level 4; Complete Time: 05:0 5ob7Rezxacldy Medications:03/2003:48 Drug: OLANZapine 10 mg [olanzapine 10 mg tablet (1 tabs)] Route: PO;jw504:30 Follow up: Response: No adverse reaction; No change in doubhsfyvjj814:08 Drug: Geodon 20 mg [ziprasidone 20 mg/mL (final concentration)intramuscular solution jw5(1 mL)] Route: IM; Site: left deltoid;07:13 Follow up: Response: No adverse vjkjcrqoiq825/2100:00 Drug: Geodon 20 mg [ziprasidone 20 mg/mL (final concentration)intramuscular solution tp2(1 mL)] Route: IM; Site: left deltoid;00:30 Follow up: Response: No adverse :00 Drug: LORazepam 2 mg [lorazepam 2 mg/mL injection solution (1 mL)] Route:IM; Site: ds6dxdyr deltoid;00:30 Follow up: Response: No adverse juflacfaht469:00 Drug: diphenhydrAMINE 50 mg [diphenhydramine 50 mg/mL injection solution(1 mL)] Route: tp2IM; Site: right deltoid;00:30 Follow up: Response: No adverse kbijnuvegd998:22 Drug: LORazepam 2 mg [lorazepam 2 mg/mL injection solution (1 mL)] Route:IM; Site: jlright vastus lateralis;10:33 Follow up: Response: Anxiety ahjqdhqtnki847:23 Drug: diphenhydrAMINE 50 mg [diphenhydramine 50 mg/mL injection solution(1 mL)] Route: jlIM; Site: right vastus lateralis;10:33 Follow up: Response: Anxiety yegmkredzrq348:24 Drug: Geodon 20 mg [ziprasidone 20 mg/mL (final concentration)intramuscular solution jl(1 mL)] Route: IM; Site: right vastus lateralis;10:33 Follow up: Response: Anxiety giqwjfxpobc0Bopghwcpdg:Dispatcher [employer] Kylie Fishman MD MD seHowland, Todd, MD MD vk7AgzwfFortunato humphrey RN RN st2RoHvtdoBertha Garrison RN RN jlPutBreonna yu RN RN gl0KgfvklugAmi dang RN ef1 Name Value Range Interpretation Code Description Data Stephanie rce(s) Supporting Document(s) ID Date Data Source [id number] 04/01/2021 06:53:00 PM EDT [facility] [place] Nurse's NotesClaxRichmond University [facility] Tootie terName: Yareli Mejiage: 20 yrsSex: FemaleDOB: 2000MRN: [id number] Date: 03/30/2021Time: 23:26Account#: [id number] 1Polga MD: NONE, - Per PatientDiagnosis: Free text-PTSD, bipolar with depressionPresentation:03/1923:28 Presenting complaint: Patient brought in by [employer] officer [facility]5evaluation due to patient calling reporting suicidal thoughts with plan to hangself oroverencompass health. International Travel Fever No. Coronavirus Screening: Have you beendiagnosedwith COVID-19 in the past 30 days? no Are you currently on quarantine by [facility]?no Flu-like symptoms reported in the last 14 days: no. Have you had closecontact withconfirmed or suspected COVID-19 case? no Do you live in a setting where a largeofamount of people live, such as senior living, family care, alf, etc? no. Haveyoutraveled to a location with widespread or ongoing COVID-19 community spread [facility]? no Have you traveled internationally or h ad contact with someonethat hastraveled and has been ill in the past 3 weeks? no Have you received the COVIDvaccine?Yes. Communicable Disease Screen: Negative for fever>/= 100 degrees Fahrenheit.Communicable disease screen is negative. (-) rash or unusual skin lesion (-)travel/contact with traveler (-) respiratory symptoms. Communication SpeaksEnglish?Yes, is preferred language.23:28 Acuity: Triage 1uf510:28 Method Of Arrival: Dyzandxx684:30 Acuity Assignment: Triage 0as6Pbnacc Assessment:23:33 General: Appears in no apparent distress, [...] threats or abuse. Denies injuries from another.Nutritional zh7dmlgbfjxp: No deficits noted. Offer of HIV testing: [...] 10 mg po to helpwith anxiety MD stricklandmk8mvfzjxyb and order received and medication given .05:02 Reassessment: Patient was using a marker to color as a coping strategyand took marker rh1omosw and cut left forearm with part of [...] try to push way throughER door several cl7ormingpa made to keep patient turned around, patient [...] and joking with staff in a bright mood.cx3Iqapdpyjskth:03/2002:34 SAFE Act Report Not Completed. Intervention: Observation Level 3. Mentalhealth consult hfis initiated at 01:50. Referral Information: Evaluation referral is generatedby apolice agency: [place] [employer]. The patient was referred for evaluationbecausesuicidal i deation with a plan. Subjective: The patients chief complaint is Ptpresentsto the ED with [place] [employer] due to Pt contacting them stating that she issuicidalwith a plan. Pt reports increased depression and being suicidal with a plan tohangself, overdose or jump off a bridge. Pt reports that she was at [facility] and transferred to [facility] yesterday and discharged. Ptreports lorraine is [...] [facility] [place]. Pt reportsthat cecilhas been eating more due [...] overdose 02/2020 Mental HealthAdmissions:multiple, last being at [facility] 03/16/21 Current Outpatient Mental HealthServices:Psychiatrist / Agency: unknown ([facility] in [place]). Therapist /Agency[facility] [place] Living Environment: The patientcurrently lives in a [...] structure. pills. Homicidal Ideation: Denies.02:56 Narrative This keno writer/runner spoke with Dr. Simon, Dr. Simon recommendskeeping Pt in the ED hfat this time and presenting Pt to the psychiatrist on during the day.Consultation:Psych MD informed of patient's status at 02:56, ED MD notified of patientsstatus at02:56. Disposition: Medically cleared for disposition by Dr Argueta.PsychiatricConsult is performed by phone with Dr Simon. The patient is not a servicemember ormilitary dependent. [place] Suicide Severity Rating Scale: Suicidal IdeationRating 3;Intensity of Ideations Rating 15; Suicidal Behavior Rating 0.07:39 Narrative PSA role handed off to this keno writer/runner at 0730 AM.hf07:53 Narrative PSA role handed off to this keno writer/runner at 0730 AM.em210:49 Narrative Pt is sleeping. Sitter is present. Safety is maintained .em212:43 Narrative Pt is sleeping. Sitter is present. Safety is maintained.em217:17 Legal Status: Patient's legal status will be Emergency: 939. DSM-V DXAxis I jx3pktemiyvp: Other Borderline Personality Disorder Belcher II diagnosis: DeferredAxis IIIdiagnosis: None. Belcher IV diagnosis: poor coping skills. InsurancePre-Certification:Not Required. [facility] A dmission Criteria: The patient is [...] to 1755 PM. [facility] by ED Security. ED Staff [...] status will be Emergency: 9.39. Commitmentpapers are ph7llzwongnj. Pt has been provided a copy of their legal status and rights. DSM- VDX AxisI diagnosis: Bipolar D/O, depressed Post Traumatic Stress Disorder. Transitionof careto Pt will be transported to [facility] with [facility] and [facility].Psych:03/1923:37 Subjective: Patient's mood is elevated, Delusions are denied,Hallucinations are denied co0Xtyanx thoughts of suicide. Plan for suicide is [...] Response: No adverse reaction; No change in metpajymuds371:08 Drug: Geodon 20 mg [ziprasidone 20 mg/mL (final concentration)intramuscular solution jw5(1 mL)] Route: IM; Site: left deltoid;07:13 Follow up: Response: No adverse vfefuedope272/2100:00 Drug: Geodon 20 mg [ziprasidone 20 mg/mL (final concentration)intramuscular solution tp2(1 mL)] Route: IM; Site: left deltoid;00:30 Follow up: Response: No adverse gixidzmzfr664:00 Drug: LORazepam 2 mg [lorazepam 2 mg/mL injection solution (1 mL)] Route:IM; Site: [id number] deltoid;00:30 Follow up: Response: No adverse [id number]:00 Drug: diphenhydrAMINE 50 mg [diphenhydramine 50 mg/mL injection solution(1 mL)] Route: tp2IM; Site: right deltoid;00:30 Follow up: Response: No adverse qmfvcicscc891:22 Drug: LORazepam 2 mg [lorazepam 2 mg/mL injection solution (1 mL)] Route:IM; Site: jlright vastus lateralis;10:33 Follow up: Response: Anxiety kzzygrmxomy460:23 Drug: diphenhydrAMINE 50 mg [diphenhydramine 50 mg/mL injection solution(1 mL)] Route: jlIM; Site: right vastus lateralis;10:33 Follow up: Response: Anxiety kbuvzteilsl081:24 Drug: Geodon 20 mg [ziprasidone 20 mg/mL (final concentration)intramuscular solution jl(1 mL)] Route: IM; Site: right vastus lateralis;10:33 Follow up: Response: Anxiety zftioluglhq3Ktbxlpo:18:06 Disposition: Admitted to Gzpccfk247:06 Condition: stable, Provider notified of abnormal vital signs.18:06 Discharge instructions given to patient, Instructed on need for admit,Demonstratedunderstanding of instructions.18:06 Discharge Assessment: Patient verbalized understanding of dispositioninstructions.Patient has no functional deficits.18:33 Decision to Hospitalize by Provider.se18:53 Patient left the ED.jlSignatures:Vincenzo Luis RN RN fbgElliott, Suzanne, MD MD seHowland, Todd, MD MD [id number] Mark RN RN [id number] arthur RN RN [id number] Collier RN RN jlPutney, Taylor RN JOSE LUIS wr2ClmbnDanae Ordoñez RN RN ml4Moyer, Elissa em2Fye, Hayley [...] off of the bed bysticking her head np0livfxow the guard rail, very aggressive and tried to hurt staff, called staff"dumbsluts" and told us to "go kill ourselves". MD Notified, placed in 4 pointrestraints.tp2 Name Value Range Interpretation Code Description Data [facility](s) Supporting Document(s) ID Date Data Source [id number] 03/28/2021 12:00:00 AM EDT [facility] Name Value Range Interpretation Code Description Data [facility]s) Sodium 139 mmol/L 136-145 Normal (applies to non-numeric resul ts) [facility] Potassium 3.5-5.1 Below low normal [facility] spital Chloride 105 mmol/L 98-107 Normal (applies to non-numeric resul ts) [facility] Carbon Dioxide CO2 21-32 Normal (applies to non-numer ic results) [facility] Anion Gap 5.0-16.0 Normal (applies to non-numeric resul ts) [facility] BUN 21 mg/dL 7-18 Above high normal [facility] Creatinine,Serum 0.7-1.2 Normal (applies to non-numeric results) [facility] GFR >60 Normal (applies to non-numeric results) [facility] Glucose Level 137 mg/dL 60-99 Above high normal [facility] Reference range is only applicable when patient is fasting Note the following drug interference: Sulfasalazine Sulfapyridine Can see falsely depressed Can see falsely elevated result with up to 17% results with up to 11% decrease in measurement increase in measurement Recommend patients be collected for this test prior to administration of either drug. Calcium 8.5-10.1 Below low normal [facility] spital Bilirubin,Total 0.1-1.9 Normal (applies to non-numeric results) [facility] SGOT(AST) 20 U/L 15-37 Normal (applies to non-numeric resul ts) [facility] Note the following drug interference: Sulfasalazine Sulfapyridine Can see falsely depressed Can see falsely elevated result with up to 10% results with up to 10% decrease in measurement increase in measurement Recommend patients be collected for this test prior to administration of either drug. SGPT(ALT) 48 U/L 12-78 Normal (applies to non-numeric resul ts) [facility] Note the following drug interference: Sulfasalazine Sulfapyridine Can see falsely depressed Can see falsely elevated result with up to 29% results with up to 10% decrease in measurement increase in measurement Recommend patients be collected for this test prior to administration of either drug. Alkaline Phosphatase 114 U/L 38-126 Normal (applies to non-num deena results) [facility] can increase Alkaline Phosp le vels up to 2 times the normal adult value. Normal values for children and adolescents are 2 to 3 times the normal adult value. Total Protein 6.0-8.2 Normal (applies to non-numeric re sults) [facility] Albumin Level 3.4-5.0 Normal (applies to non-numeric re sults) [facility] ID Date Data Source [id number] 03/28/2021 12:00:00 AM EDT [facility] Name Value Range Interpretation Code Description Data [facility](s) Supporting Document(s) Troponin I 0.000-0.056 Normal (applies to non-numeric resu lts) [facility] ID Date Data Source [id number] 03/28/2021 12:00:00 AM [facility] Name Value Range Interpretation Code Description Data Stephanie rce(s) Supporting Document(s) Magnesium 1.8-2.4 Normal (applies to non-numeric resul ts) [facility] ID Date Data Source [id number] 03/28/2021 12:00:00 AM [facility] Name Value Range Interpretation Code Description Data Stephanie rce(s) Supporting Document(s) Salicylate 2.8-20.0 Below low normal [facility] ID Date Data Source [id number] 03/28/2021 12:00:00 AM [facility] Name Value Range Interpretation Code Description Data Stephanie rce(s) Supporting Document(s) Acetaminophen 10.0-30.0 Below low normal [facility] ID Date Data Source [id number] 03/27/2021 11:58:00 PM [facility] Name Value Range Interpretation Code Description Data Stephanie rce(s) Supporting Document(s) Ethanol Less than 10.0 Normal (applies to non-numeric r esults) [facility] ID Date Data Source [id number] 03/27/2021 11:36:00 PM [facility] Name Value Range Interpretation Code Description Data Stephanie rce(s) Supporting Document(s) White Blood Count 3.5-10.5 Normal (applies to non-numeri c results) [facility] Red Blood Count 3.90-5.00 Normal (applies to non-numeric results) [facility] Hemoglobin 12.0-15.5 Normal (applies to non-numeric resul ts) [facility] Hematocrit 34.9-44.5 Normal (applies to non-numeric resul ts) [facility] Mean Corpuscular Volume 81.2-95.1 Normal (applies to non- numeric results) [facility] Mean Corpuscular Hgb 25.6-32.2 Normal (applies to non-num deena results) [facility] Mean Corpuscular Hgb Conc 32.0-36.0 Normal (applies to no n-numeric results) [facility] Red Cell Distribution Width 11.9-15.5 Normal (appli es to non-numeric results) [facility] Platelet Count 254 x10 3/uL 150-450 Normal (applies to non-numeric results) [facility] Mean Platelet Volume 9.4-12.4 Normal (applies to non-num deena results) [facility] Neutrophils% (Auto) 31.0-71.0 Normal (applies to non-nume frank results) [facility] Lymphocytes% (Auto) 20.0-55.0 Normal (applies to non-nume frank results) [facility] Monocytes% (Auto) 4.0-12.0 Normal (applies to non-numeri c results) [facility] Eosinophils% (Auto) 1.0-8.0 Normal (applies to non-nume frank results) [facility] Basophils% (Auto) 0.0-2.0 Normal (applies to non-numeri c results) [facility] Immature Granulocytes% (Auto) 0.0-2.0 Normal (alexander lies to non-numeric results) [facility] Neutrophils# (Auto) 1.50-6.20 Normal (applies to non-nume frank results) [facility] Lymphocytes# (Auto) 1.20-4.00 Normal (applies to non-nume frank results) [facility] Monocytes# (Auto) 0.00-0.90 Normal (applies to non-numeri c results) [facility] Eosinophils# (Auto) 0.00-0.50 Normal (applies to non-nume frank results) [facility] Basophils# (Auto) 0.00-0.20 Normal (applies to non-numeri c results) [facility] Immature Granulocytes# (Auto) 0.00-7.00 No rmal (applies to non-numeric results) [facility] ID Date Data Source [id number] 03/28/2021 12:21:00 AM EDT [facility] First test? UNKNOWNEmployed in [facility] re? UNKNOWNSymptomatic per CDC? UNKNOWNIf yes date of onset? 03/27/21Hospitalized? UNKNOWNICU? UNKNOWNResident in congregated care? ex senior living, [facility] UNKNOWN? UNKNOWN Name Value Range Interpretation Code Description Data [facility] r[facility](s) Supporting Document(s) SARS-CoV-2 RNA Negative Normal (applies to non-numeric r esults) [facility] Negative results should be treated as pr [...] Certificate of Accreditation. Factsheets for healthcare providers: https://www.fda.gov/media/767408/download Factsheets for patients: https://www.fda.gov/media/961530/download The ID NOW Instrument is a rapid molecular in vitro diagnostic test utilizing an isothermal nucleic acid amplification technology intended for the qualitative detection of nucleic acid from the SARS-CoV-2 viral RNA. THIS IS A STATE REPORTABLE COMMUNICABLE DISEASE. Manual entry verified by Aysha Andrade 03/28/21 0020 ID Date Data Source [id number] 03/28/2021 12:05:00 AM EDT [facility] Name Value Range Interpretation Code Description Data Stephanie rce(s) Supporting Document(s) HCG,Ur Negative Normal (applies to non-numeric results) [facility] ID Date Data Source [id number] 03/27/2021 11:58:00 PM EDT [facility] Name Value Range Interpretation Code Description Data Stephanie rce(s) Supporting Document(s) UDS Benzodiazepines Screen Negative Normal (applies to n on-numeric results) [facility] UDS Cocaine Screen Negative Normal (applies to non-numer ic results) [facility] UDS Ampetamine Screen Negative Normal (applies to non-nu meric results) [facility] UDS Cannabinoids Screen Negative Normal (applies to non- numeric results) [facility] UDS Opiates Screen Negative Normal (applies to non-numer ic results) [facility] UDS Barbiturates Screen Negative Normal (applies to non- numeric results) [facility] Threshold Levels Benzodiazepine 200 ng/mL Cocaine 300 ng/mL Amphetamines 1000 ng/mL Cannabinoids (THC) 50 ng/mL Opiates 300 ng/mL Barbiturates 200 ng/mL All positive findings are presumptive and unconfirmed. Confirmation of positive results are performed only at request of provider. Unconfirmed results must not be used for non-medical purposes (i.e. preemployment and legal purposes) ID Date Data Source [id number] 03/27/2021 11:37:00 PM [facility] Collected By: Nurse Name Value Range Interpretation Code Description Data Stephanie rce(s) Supporting Document(s) Color,Urine Colorl-Dk Y Normal (applies to non-numeric res ults) [facility] Clarity,Urine Clear Normal (applies to non-numeric re sults) [facility] Specific [place],Urine 1.005-1.030 [facility] pH,Urine 5.0-8.0 Normal (applies to non-numeric resul ts) [facility] Protein,Urine Negative Normal (applies to non-numeric re sults) [facility] Glucose,Urine Negative Normal (applies to non-numeric re sults) [facility] Ketones,Urine Negative Normal (applies to non-numeric re sults) [facility] Blood,Urine Negative Normal (applies to non-numeric resu lts) [facility] Bilirubin,Urine Negative Normal (applies to non-numeric results) [facility] Urobilinogen,Urine 0.2-1.0 Normal (applies to non-numer ic results) [facility] Leukocyte Esterase,Urine Negative Normal (applies to non -numeric results) [facility] Nitrite,Urine Negative Normal (applies to non-numeric re sults) [facility] ID Date Data Source [id number] 03/27/2021 10:35:00 PM EDT [facility] Name Value Range Interpretation Code Description Data Stephanie rce(s) Supporting Document(s) Respiratory specimen severe acute respir atory syndrome coronavirus 2 (SARS-CoV-2) RNA Negative (qualifier value) [facility] and reported by . ID Date Data Source [id number] 03/25/2021 09:40:00 PM EDT [facility] Name Value Range Interpretation Code Description Data Stephanie rce(s) Supporting Document(s) Respiratory specimen severe acute respir atory syndrome coronavirus 2 (SARS-CoV-2) RNA Negative (qualifier value) [facility] This lab was ordered by [place] Stella heaton and reported by . ID Date Data Source [id number] 03/25/2021 10:10:00 PM EDT [facility] Collected By: Nurse Initials: cs Time Collected: 2142 Collected By: Nurse Initials: cs Time Collected: 2142 Collected By: Nurse Initials: cs Time Collected: 2142 Name Value Range Interpretation Code Description Data Stephanie rce(s) Supporting Document(s) Color,Urine Colorl-Dk Y Normal (applies to non-numeric res ults) [facility] Clarity,Urine Clear Normal (applies to non-numeric re sults) [facility] Specific [place],Urine 1.005-1.030 [facility] pH,Urine 5.0-8.0 Normal (applies to non-numeric resul ts) [facility] Protein,Urine Negative [facility] Glucose,Urine Negative Normal (applies to non-numeric re sults) [facility] Ketones,Urine Negative Normal (applies to non-numeric re sults) [facility] Blood,Urine Negative Normal (applies to non-numeric resu lts) [facility] Bilirubin,Urine Negative [facility] pital Urobilinogen,Urine 0.2-1.0 Normal (applies to non-numer ic results) [facility] Leukocyte Esterase,Urine Negative Normal (applies to non -numeric results) [facility] Nitrite,Urine Negative Normal (applies to non-numeric re sults) [facility] ID Date Data Source [id number] 03/25/2021 10:10:00 PM [facility] Collected By: Nurse Initials: cs Time Collected: 2142 Collected By: Nurse Initials: cs Time Collected: 2142 Collected By: Nurse Initials: cs Time Collected: 2142 Name Value Range Interpretation Code Description Data Stephanie rce(s) Supporting Document(s) RBC,Urine None Seen [facility] WBC,Urine None Seen [facility] Casts,Urine None Seen Normal (applies to non-numeric resu lts) [facility] Epithelial Cells,Urine None - Few Normal (applies to non-n umeric results) [facility] Squamous Cells,Urine None Seen [facility] Bacteria,Urine None Seen [facility] ital ID Date Data Source [id number] [facility] Initials: cs Time Collected: 2142 Collected By: Nurse Initials: cs Time Collected: 2142 Collected By: Nurse Initials: cs Time Collected: 2142 Name Value Range Interpretation Code Description Data Stephanie rce(s) Supporting Document(s) HCG,Ur Negative Normal (applies to non-numeric results) [facility] This is a Corrected Result --- 03/25/212206 --- Ur HCG previously reported as: Negative ID Date Data Source [id number] 03/25/2021 10:04:00 PM EDT [facility] Name Value Range Interpretation Code Description Data Stephanie rce(s) Supporting Document(s) SARS-CoV-2 RNA Negative Normal (applies to non-numeric r esults) [facility] Negative results should be treated as pr [...] Certificate of Accreditation. Factsheets for healthcare providers: https://www.fda.gov/media/717100/download Factsheets for patients: https://www.fda.gov/media/677564/download The ID NOW Instrument is a rapid molecular in vitro diagnostic test utilizing an isothermal nucleic acid amplification technology intended for the qualitative detection of nucleic acid from the SARS-CoV-2 viral RNA. THIS IS A STATE REPORTABLE COMMUNICABLE DISEASE. Manual entry verified by Rachel Leslie 03/25/212202 ID Date Data Source [id number] 03/25/2021 10:04:00 PM EDT [facility] Name Value Range Interpretation Code Description Data Stephanie rce(s) Supporting Document(s) UDS Benzodiazepines Screen Negative Normal (applies to n on-numeric results) [facility] UDS Cocaine Screen Negative Normal (applies to non-numer ic results) [facility] UDS Ampetamine Screen Negative Normal (applies to non-nu meric results) [facility] UDS Cannabinoids Screen Negative Normal (applies to non- numeric results) [facility] UDS Opiates Screen Negative Normal (applies to non-numer ic results) [facility] UDS Barbiturates Screen Negative Normal (applies to non- numeric results) [facility] Threshold Levels Benzodiazepine 200 ng/mL Cocaine 300 ng/mL Amphetamines 1000 ng/mL Cannabinoids (THC) 50 ng/mL Opiates 300 ng/mL Barbiturates 200 ng/mL All positive findings are presumptive and unconfirmed. Confirmation of positive results are performed only at request of provider. Unconfirmed results must not be used for non-medical purposes (i.e. preemployment and legal purposes) ID Date Data Source [id number] 03/25/2021 09:47:00 PM EDT [facility] Name Value Range Interpretation Code Description Data Stephanie rce(s) Supporting Document(s) Ethanol Less than 10.0 Normal (applies to non-numeric r esults) [facility] ID Date Data Source [id number] 03/25/2021 09:17:00 PM [facility] Name Value Range Interpretation Code Description Data Stephanie rce(s) Supporting Document(s) White Blood Count 3.5-10.5 Normal (applies to non-numeri c results) [facility] Red Blood Count 3.90-5.00 Normal (applies to non-numeric results) [facility] Hemoglobin 12.0-15.5 Normal (applies to non-numeric resul ts) [facility] Hematocrit 34.9-44.5 Normal (applies to non-numeric resul ts) [facility] Mean Corpuscular Volume 81.2-95.1 Normal (applies to non- numeric results) [facility] Mean Corpuscular Hgb 25.6-32.2 Normal (applies to non-num deena results) [facility] Mean Corpuscular Hgb Conc 32.0-36.0 Normal (applies to no n-numeric results) [facility] Red Cell Distribution Width 11.9-15.5 Normal (appli es to non-numeric results) [facility] Platelet Count 264 x10 3/uL 150-450 Normal (applies to non-numeric results) [facility] Mean Platelet Volume 9.4-12.4 Normal (applies to non-num deena results) [facility] Neutrophils% (Auto) 31.0-71.0 Normal (applies to non-nume frank results) [facility] Lymphocytes% (Auto) 20.0-55.0 Normal (applies to non-nume frank results) [facility] Monocytes% (Auto) 4.0-12.0 Normal (applies to non-numeri c results) [facility] Eosinophils% (Auto) 1.0-8.0 Normal (applies to non-nume frank results) [facility] Basophils% (Auto) 0.0-2.0 Normal (applies to non-numeri c results) [facility] Immature Granulocytes% (Auto) 0.0-2.0 Normal (alexander lies to non-numeric results) [facility] Neutrophils# (Auto) 1.50-6.20 Normal (applies to non-nume frank results) [facility] Lymphocytes# (Auto) 1.20-4.00 Normal (applies to non-nume frank results) [facility] Monocytes# (Auto) 0.00-0.90 Normal (applies to non-numeri c results) [facility] Eosinophils# (Auto) 0.00-0.50 Normal (applies to non-nume frank results) [facility] Basophils# (Auto) 0.00-0.20 Normal (applies to non-numeri c results) [facility] Immature Granulocytes# (Auto) 0.00-7.00 No rmal (applies to non-numeric results) [facility] ID Date Data Source [id number] 03/25/2021 09:55:00 PM EDT [facility] Name Value Range Interpretation Code Description Data Stephanie rce(s) Supporting Document(s) Sodium 141 mmol/L 136-145 Normal (applies to non-numeric resul ts) [facility] Potassium 3.5-5.1 Normal (applies to non-numeric resul ts) [facility] Chloride 106 mmol/L 98-107 Normal (applies to non-numeric resul ts) [facility] Carbon Dioxide CO2 21-32 Normal (applies to non-numer ic results) [facility] Anion Gap 5.0-16.0 Normal (applies to non-numeric resul ts) [facility] BUN 12 mg/dL 7-18 Normal (applies to non-numeric results) [facility] Creatinine,Serum 0.7-1.2 Normal (applies to non-numeric results) [facility] GFR >60 Normal (applies to non-numeric results) [facility] Glucose Level 96 mg/dL 60-99 Normal (applies to non-numeric re sults) [facility] Reference range is only applicable when patient is fasting Note the following drug interference: Sulfasalazine Sulfapyridine Can see falsely depressed Can see falsely elevated result with up to 17% results with up to 11% decrease in measurement increase in measurement Recommend patients be collected for this test prior to administration of either drug. Calcium 8.5-10.1 Normal (applies to non-numeric resul ts) [facility] Bilirubin,Total 0.1-1.9 Normal (applies to non-numeric results) [facility] SGOT(AST) 27 U/L 15-37 Normal (applies to non-numeric resul ts) [facility] Note the following drug interference: Sulfasalazine Sulfapyridine Can see falsely depressed Can see falsely elevated result with up to 10% results with up to 10% decrease in measurement increase in measurement Recommend patients be collected for this test prior to administration of either drug. SGPT(ALT) 52 U/L 12-78 Normal (applies to non-numeric resul ts) [facility] Note the following drug interference: Sulfasalazine Sulfapyridine Can see falsely depressed Can see falsely elevated result with up to 29% results with up to 10% decrease in measurement increase in measurement Recommend patients be collected for this test prior to administration of either drug. Alkaline Phosphatase 126 U/L 38-126 Normal (applies to non-num deena results) [facility] can increase Alkaline Phosp le vels up to 2 times the normal adult value. Normal values for children and adolescents are 2 to 3 times the normal adult value. Total Protein 6.0-8.2 Normal (applies to non-numeric re sults) [facility] Albumin Level 3.4-5.0 Normal (applies to non-numeric re sults) [facility] ID Date Data Source [id number] 03/25/2021 09:55:00 PM EDT [facility] Name Value Range Interpretation Code Description Data Stephanie rce(s) Supporting Document(s) Troponin I 0.000-0.056 Normal (applies to non-numeric resu lts) [facility] ID Date Data Source [id number] 03/25/2021 09:55:00 PM EDT [facility] Name Value Range Interpretation Code Description Data Stephanie rce(s) Supporting Document(s) Magnesium 1.8-2.4 Normal (applies to non-numeric resul ts) [facility] ID Date Data Source [id number] 03/25/2021 09:55:00 PM EDT [facility] Name Value Range Interpretation Code Description Data Stephanie rce(s) Supporting Document(s) Salicylate 2.8-20.0 Below low normal [facility] ID Date Data Source [id number] 03/25/2021 09:55:00 PM EDT [facility] Name Value Range Interpretation Code Description Data Stephanie rce(s) Supporting Document(s) Acetaminophen 10.0-30.[address] [facility] ID Date Data Source [id number] 03/25/2021 07:15:08 AM EDT [facility] Name Value Range Interpretation Code Description Data Stephanie rce(s) Supporting Document(s) Discharge Summary [facility] CLQJJi4nLbWYQgIh22/ECTvbYSWad4QcUWojCPr7DGntDDUxG0DvPWR0yT2sOPM8OMzAJuOoOuUzEXE8 lbm [file] qnGU3H4fzkjNMoEJmVSVk++/psychiatric orderly//gz3WromBqIpwmEaSRslGvx/nH8MF0Gid0QTQ/WOIEjGslPHMFZG6 [file] FRG2uVFwAz3MQzEjGXYXSkCwGB4JHFk= ID Date Data Source [id number] 03/24/2021 09:16:00 AM EDT [facility] Exam Number: [id number] Reported By: - SHIVAM OSCAR MD Signed By: SHIVAM OSCAR MD Name Value Range Interpretation Code Description Data Stephanie rce(s) Supporting Document(s) ID Date Data Source [id number] 03/21/2021 04:51:30 PM EDT [facility] Name Value Range Interpretation Code Description Data Stephanie rce(s) Supporting Document(s) History and Physical [facility] MWONTm8aHiRAUbYn31/RGKlxDLAya7MaFNosNLy7EKlzSITyZ5XjFYJ6sM7xOJI8GFdQYmBwNfDnRWZp lbm [file] AgICAgICAgICAgICAgICAgICAgICAgICAgICAgICAgICAgICAgICAgICAgICAgICAgICAgICAgICAgIC TgPDRpFM7IAYBhUWQaNFTuBWQnSSXfFNYqQPZeRUVv ICAgICAgICAgICAgICAgICAgICAgICAgICAgICAgICAgICAgICAgICAgICAgICAgICAgICAgICAgICAg BVRjINXaPSIaSKDuQVHaDT2HKQDlLDJhQRFaTPVtRZKlLMVmTXEtNENiNWHxELIdRJZiCLGoUCZwFQRo ICAgICAgICAgICAgICAgICAgICAgICAgICAgICAgIC AcUFRqAFQhCKFwOCHpNXSaQVSvUVOvRWWkDL0PSHJjPBBwPOZgIQQpJRBuHNTxNBDnFZIkCTRvRXKbAG AgICAgICAgICAgICAgICAgICAgICAgICAgICAgICAgICAgICAgICAgICAgICAgICAgICAgICAgICAgIC RvHKNpOKGoJU2VECZiAPMvGTDdYBLjLDJoCKArZEWb ICAgICAgICAgICAgICAgICAgICAgICAgICAgICAgICAgICAgICAgICAgICAgICAgICAgICAgICAgICAg NGCoVVDlLNApWJJpSGHxIYJdYU5RVQGkSEJnBKDlDXVhDJPtKZFwKGYaZXCfNWZlJWPlYPKrYOMyGYMz ICAgICAgICAgICAgICAgICAgICAgICAgICAgICAgIC EbPSInLQCaRXFeCQKtETTpTIDeSCTaGRXmMTRoSN5LXPQhMCGzMDRgNQPsSJKvPWXlNYEeQHBfPEYgKN AgICAgICAgICAgICAgICAgICAgICAgICAgICAgICAgICAgICAgICAgICAgICAgICAgICAgICAgICAgIC NrITNsDYDsYAIeKA4RTWWtZOPeNCJyVCXsBTTwOJEr ICAgICAgICAgICAgICAgICAgICAgICAgICAgICAgICAgICAgICAgICAgICAgICAgICAgICAgICAgICAg WJAjFCLtCIEzFWEmXOQbBCPwOMGzHQ2HCXOiGGEdCFWuUNWySQTpTVKaEWIvGDTnXTGmEXJrJSNsBYUb ICAgICAgICAgICAgICAgICAgICAgICAgICAgICAgIC PsXZBxTGKvCADdVNCgATAcYRYaFTCbZMXkBRJdXXHaWV1SCQJsMIHzAKDpORMmUEQuBZZpYNHoKUCuTP AgICAgICAgICAgICAgICAgICAgICAgICAgICAgICAgICAgICAgICAgICAgICAgICAgICAgICAgICAgIC QmEETkNYUsYXWsEPHrBN6RFF30dPAsu8S0TGCzND6p dyc/Tt0JYYhqpgQpiVMyHP9SXdInJV0qab9OSgWnOP7guc1ZROsMIvWwP0X2gRFuBDTyFSCZQtIfF60f LQoyGb33WAutHAUzFoUgVVi0Qi3WTsKfL4wfFSIfQsN2AEWaQlQ8BCGuQeI2NRBtNrUuKLRbQWGpCLDu MBYMUP7ILlAhL8HeiN60ACFPNr5+DQplbmRvYmoNCj S6OWCfu9EaJPt1EI2IQXGbKltvo1PwEwxzAMWKIXooEN1PJBU7JEV3QBTqJz3YGVUbJ075lgYqGG0RQa 2DOoLoCK1sxu2JOqmsMHVqHzjCWcm9IAkoHO1JgEStQHbZEfIvBeeyMYYghFSBRJVyHVJjzNmxTFLpCD QkRB8iYM4cXNVeDHEtCiO5IAXOER8QSKCkGJPptNJv NORiZKECJA1BZDgeYXW6RSQdscSneATcRFccIG9FBQJatxJyVhHjLMJYGMm+Sf6YLI3bm7EuAWvaBPKy TB7taf6WHOkRJlPwF1J9tFMsM1S2KDohHa7TINJfQWZdMcDyZQHHOKehPR6FDO2nhwQ4BY6DwZVlZOMr KDZlzICoQKp1I01jzIUqOVovYO0DZUE+Dillon+Pg0KIC SeMUWtINWzWlBpBBNZQzEhP7OoK8LBs7JfC0DgMF20mSzscuXeEJtzMQ9QYX4rBZUuBGXJXK8TuWEfmC 6vnbYbFrEdOVMQSyZtQ86seCJwQXYmQCS6AVItUo6QCYOsT3JxijAlkRlgjoHlUBDrKUBERQ2XJIkaqc PimYJpgQchFY67hVcpRP6NXs8SZuTlXV3ktv2TrRAy Es6TZAZgLG2PDVPkVVTkHIGfHJS2OYVtGxFnADisLXNxIKYyRSB7MKWbJUDtOV3PPaMbGMJmFeCzDRhi YXXkHGNrhp4YFPEgZBVvOdY5XGVgTCLbSDIoSShlROLjOPAcUAM7QHQpNLIlXH2TRzSiWMHbYHRbELbk HTYbPIEafk6JJXNhKFCqOkLdTATaBKJdGHIbUBigBA TkGZW9FTy3WPHqKNXbGY9RWxFiGXTiWDN3DYVtNBFsIMMlwb6YFUWcIVWoCPPlYPYkSPDxIPCvQJxkNV QmUWF4BjS1LNQzMBDoAW5QXoUaNXCgWJH5UUJoQVWfWECufe8LOUJwQXQhHqpdWPGiKWTcXHYoMRkuFG DdMFE8HRR5JDOcDISeNK2FCsEtCFJhGFFmWMEmZVUk DILsdr8CLDBgXSVzJxQuOJJuEZFyUDFtEHepSYJgEYG3MSf7IXDpWQXmEE0NAwUeGQSbVOL7NQHzCJFo YDJazt7ZMCPaOLSuGsJqPXChWJJmNKFxDQfcXYLnYKO7PEBrQNIeDRBkIV6OSfDpEKAmVYfrUaiqEXQj SRTtmt8GRYToZALhGQm3UWJbJJKmCFTiTNnqGOKiUK P0UPo6HUIcMWGcXI9HDdFaWRWnJGmaQxtfRGXeQVCsos6LYSSyXZZjYLb4BXXeIZFzYDNiHBzgVTViMY OaOSpuSEKkGFGhCZ2DZcEsREVmTiAeBKSrJVGrHAXpfu3EMQNuBLBxDTLfMSBnMFJyOYGtORtoWBJxLE WoJoO2LQNtJQNtDT6MOdQkPDNyAeN6AWBgUFYtWLMp dk6KQKIvRUPiKyi9LYFyUBSdXCEqAGzwLUVvHLFcVRe0FLDrAGBoKI7RCrLvOKCePbU5KHhqSIMfVPIg uz5VAQYnFOJiCFDfPmMiVJWsLNUlHPymDXAqENB6Zqy9LXMgBLDaBK4XWnErOCTbNdO9GZLvKFVcTWIg io2HTLRzFTTiOuMcFTAoKWIdEUDhJKbdVYCkOWC2Ln d8LGEaHFCdJH3TNlChHAMsTnQ5CAAlUEOhYWBxvm9ZyXFqeVoykq7ZKLbJYx2GlXjpZYM2JCbcUc3doC FtHZSlYVVREl9UzmAgJNHrDJYEKJtySVLiNDzcUsgxJLQuPqH0FJFlNJUjERL4QdW5RoshHKW8FOKgCg T1IYNdVqRfKPX1QlJ7BsN0LdJsUqLqGuK9OWXzGGOs NWE+DV9aRIi+Dh1Pt4LqohB9mkBnGOukOaL6NL4OJHDQD9VRRl== ID Date Data Source [id number] 03/21/2021 04:41:32 PM EDT [facility] Name Value Range Interpretation Code Description Data Stephanie e(s) Supporting Document(s) History and Physical [facility] NECNAj8sAxZXHbYp38/SYQnpJYImd5PoPCjeUWs7XWnpOJPyG9XdQBR4zQ9dIMK4GPrCSqEkKtEwOIDk lbm [file] thu5ZT/N35AdompgOYK29HMeF/ODV+bell tier+bXB2jaPNP [file] E+DQogICAgICAgICAgICAgICAgICAgICAgICAgICAgICAgICAgICAgICAgICAgICAgICAgICAgICAgIC AgICAgICAgICAgICAgICAgICAgICAgICAgICAgICAg ICAgICAgICAgICAgDQogICAgICAgICAgICAgICAgICAgICAgICAgICAgICAgICAgICAgICAgICAgICAg ICAgICAgICAgICAgICAgICAgICAgICAgICAgICAgICAgICAgICAgICAgICAgICAgICAgICAgDQogICAg ICAgICAgICAgICAgICAgICAgICAgICAgICAgICAgIC AgICAgICAgICAgICAgICAgICAgICAgICAgICAgICAgICAgICAgICAgICAgICAgICAgICAgICAgICAgIC AgICAgDQogICAgICAgICAgICAgICAgICAgICAgICAgICAgICAgICAgICAgICAgICAgICAgICAgICAgIC AgICAgICAgICAgICAgICAgICAgICAgICAgICAgICAg ICAgICAgICAgICAgICAgDQogICAgICAgICAgICAgICAgICAgICAgICAgICAgICAgICAgICAgICAgICAg ICAgICAgICAgICAgICAgICAgICAgICAgICAgICAgICAgICAgICAgICAgICAgICAgICAgICAgICAgDQog ICAgICAgICAgICAgICAgICAgICAgICAgICAgICAgIC AgICAgICAgICAgICAgICAgICAgICAgICAgICAgICAgICAgICAgICAgICAgICAgICAgICAgICAgICAgIC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 AgICAgICAgICAgICAgICAgICAgICAgICAgICAgICAgICAgICAgICAgICAgICAgICAgICAgICAgICAgIC TnUEUqCXRyAB8JPEEqHHVeAHHtSRRyYXFqKLYzGJSh ICAgICAgICAgICAgICAgICAgICAgICAgICAgICAgICAgICAgICAgICAgICAgICAgICAgICAgICAgICAg LKZkULMrBUKeRLSdOOIpGKUeXH9ZIAVyNTAhFCPzEGUtGTPnOGYeADMrJSFcXBGxNEWhLTGoDSQyLIGe ICAgICAgICAgICAgICAgICAgICAgICAgICAgICAgIC VqZYTkRICsCRWsFSKkPTVxLIJdMIRsAUJlLETjSQ1DPA97eRUsy9C8OQHfOR4nmpv/Vl9KHOecsqSsvU YzYP8VLwWfIL5duo9TIzKoZR2hrl5QBXwCUgElO5G9eEPhWRAmYQAHYyVfL37aUGacSk66RTtrGFXiMi LmFFu3Ay9XBzBnS3ygVLWvZhD1HECxEaVbQHcbIR2L o3EagFGcSZz+Aw3ZUL2nf4LnYLpvAIWlCK5wbj4QISmOZdFjI8LqtcC2YVT1RLVvKl5TDZRmYAJpvBOq ZjIrUDKQDnXeY0MqiN87LVQDIs7+HEgnfqJtEtxVFgM9PLTmo4OgGMj0AY3PBGHgVOi2xAJtVSPiY7Ze v9EtQm57FNSeHghqKTvyBI5qI6Sdo6Inm7heQR2NVW D9HRleUQ2oLYScKUSjGvFiFJQUNC4FWAUoPMZowACtBLUfLSXPEB6ZSPwzRMN0PxodaxVdmTGfTYaeST 9QYXJlbnQgMjUgMCBSDQo+Du6FQL5jl6SiLMuxUjDdWV3esb4HURbUGjFjZ1E3oOFrE4Z8DQuhOi2ENK QdRWBnIeDcFYOLVVgpTA5NGP9ejuN1YQ7VxKHuLHBq LOJqsYQmTDs8H88bhMNbGWtrEZ4ZTXH+Dillon+Za9KQZHsFKXyDEJtBqRtTCZWHwPlY3WuT2ZNg4FrW7Jx GT27fTycwgGjBFfwXL5FUN6uBSVdHTDRVM7GfJSmoT6jkeUyFYNdTWMDBrRsC62vbKSuRGPvFXN2LENr Xi9YQGViQ7LactAbcZtbffMiAJSoBBZWLP6FRAmszd YpnJZoyPjgAT49dSgmRL2TIx1YTrXjOA3uqp3HeEPhRv5HCMChLD8IQGHmALJvQWHjRJT4PEZzVxLfEH ogJOOmYRNeGXZ6PFMwSIYwBU7QJhSdRFYfTUp8ZDfqOWNqKZJlkg2TEVGuAUIwTFyaREHePVZePCSuXI xnWUDzTKJrNKT9WSUtRDDkMN4KVhXgDZGjZGP5GiQx EXMgIAPhqf9GUIAtTDBnTrBbPFZlFUYcXAIlKOuaRQTmSLEqHYa9ZPYpKDAaRH5ZRtJrLJCmHRA3KWbf AKSaTJAfrw0NMGAsAQVjMuj3FvIvHITbTQUyZSjcXTRsRCT5XQOyIIAoZXVqFE8LAcAoQGNdBGSvWmmk TUIdXOBzzd8RQKUoZSQdFFQuEUMkNUAjWSNuHIpkCA EfRNA0MzzxZNSyEVJsQW5KAgVzAVVnFYA8IVaoDKZoNXZftp3UYAYxIDZpDrM2UcRcNCUnPQGnDDzaAY FjPCY7PvS1GZGfLJSnOB1HMiTfBUDkLWj4HxMtCHExGFHcni3UUGWlFWRuDVDqLGJhMKYxCOAgNQapAR UiPOM8VJs2FWUdEATcUJ3XBzBjEMZoVJpfPPZcZPIz PHBaso4JYHVrLUWvXRB5VZQfEXTpPROxMStqVFPhPEG2Dqp7BKDaCLXcIC6VQbRgFQCdFQw4YfmeFPEg FUBuhb4OZKKyFTOgACU7HSPbGVRcLMZtCAzkZHDkYTRcVBS4ZXWsXVFuFF1FCgUkAQCzKGB6CDprLUYp ABMwcv7HLHTxJLOfVvD3FxDlGFSjYHNgYHt2taSadB ObSTl2XT2VT9JxptDuDyeFMt7Rd169XVU3IQEvYd4QG0kiLi8rYREnLIBTOc9STIx8JSOnRtCyLWJ8Jc BhZOOeNJR5WOFwXuPbXyWhRcCsPLU+KTm8NPMiGwS5AhbcLrD5HZMjGqF1MlT0KJDuBpA7O8CjVb7tTL ANCj4+SFmcdSOyaJkiNGEIGzBuVhOzGGmqKCPRMc4O ID Date Data Source [id number] 03/15/2021 02:56:41 PM EDT [facility] Name Value Range Interpretation Code Description Data Stephanie rce(s) Supporting Document(s) Discharge Summary [facility] ORPOFp9yMpKDSmQh36/AMFavMDIrn7XgPTjgJHz1LZafQNBlD1CvATT3dR6pUSH6ZXfKDrGbEeOdVJA8 lbm [file] Cj4+CQhuuNYzfZpeDPQEUvPmGIY1YBfdNQVQZt4R ID Date Data Source [id number] 03/15/2021 01:54:16 PM EDT [facility] Name Value Range Interpretation Code Description Data Stephanie rce(s) Supporting Document(s) Progress Notes [facility] LEGGYm0wFlEDTrNi20/XEEueKYTpe1SjUCcoQBp8ZXptOARrD1ByMKQ0iV7dJDT8QYiVUtTiLeKeBYG0 lbm [file] z9IQU0LsG1NJf+OO6vDGe+Fi5Ad0NcvxV5gfTfKUa0GvXdPXahXOMMKj5I ID Date Data Source [id number] 03/15/2021 01:22:18 PM EDT [facility] Name Value Range Interpretation Code Description Data Stephanie rce(s) Supporting Document(s) Nursing Note [facility] YIMGGn6dFtLSZzQz51/UWNxeORPag7FxFSfgZQj7IOkqFCAmS2ScWVG5hT5qUYT1ZDqRSaZxIlMeBMF2 lbm [file] AgICAgICAgICAgICAgICAgICAgICAgICAgICAgICAgICAgICAgICAgICAgICAgICAgICAgICAgICAgIC FwWLJbXTVjQBEbZFLpUPRtDNRlIT5ZLHTmEBRaMTZnVQTkMYYlYNQaGTVePRYbKOZmXQHyWLMgAWSqLB AgICAgICAgICAgICAgICAgICAgICAgICAgICAgICAg HUDfKIVjNQBvEQAlBZYvEWZgYOJoKUNdTDKaMCBjDO6TILCoFEUiXAQiHVAuWWKbOOTjNFOeJTGpSPZh ICAgICAgICAgICAgICAgICAgICAgICAgICAgICAgICAgICAgICAgICAgICAgICAgICAgICAgICAgICAg POBoPFOwIBJqDIIvIA3QOKIgDVZiDFCrXXDuCMYeVO AgICAgICAgICAgICAgICAgICAgICAgICAgICAgICAgICAgICAgICAgICAgICAgICAgICAgICAgICAgIC GlXLFcOTMiPQHnKCFmKJAwFRBtBNDdRG6BKXCaBGBlLKZxAFAoLEBlQGVxXTHyPRSpABQcBYEjSEBiJQ AgICAgICAgICAgICAgICAgICAgICAgICAgICAgICAg BSNhZWRzABFwMAExWZJaWGGqSFUxLLJhBHXaMONeFNEnDF5LWBHhGZTwCKNjPIFeDIKcGVTdPPMfRLSl ICAgICAgICAgICAgICAgICAgICAgICAgICAgICAgICAgICAgICAgICAgICAgICAgICAgICAgICAgICAg KDQrBLNpMCGsXESwHAVyRJ3XFCDfRXYrBNHiQGBpEX AgICAgICAgICAgICAgICAgICAgICAgICAgICAgICAgICAgICAgICAgICAgICAgICAgICAgICAgICAgIC BtUWVyKEVtWSOsJUDxPGAxBXYlZBVaHYYhXG8WYIObYWIvOXVnOMSzXMHuAFIdSXKfAGGvHQBcHLEcDI AgICAgICAgICAgICAgICAgICAgICAgICAgICAgICAg DKBxOUCnFRAlNTUlYQWrRCWySKJuWDQnNGXbLICzLRZePYPsCQ5EHRHzAXJfYDSmUUOwHGFwBAGkICWa ICAgICAgICAgICAgICAgICAgICAgICAgICAgICAgICAgICAgICAgICAgICAgICAgICAgICAgICAgICAg FQWoDSAeHFFvERRsULJxVHHoTT5LCEMcCJVjGDUbNE AgICAgICAgICAgICAgICAgICAgICAgICAgICAgICAgICAgICAgICAgICAgICAgICAgICAgICAgICAgIC EqIOEzNIJfBOOxKMMwEQXsMOAkLCNsWQToUOKeGB2KTZ48tIHjc6W6GXLbQK4xpir/Md1FKBtzngKkjW NxBH6FAaVdJT6vrm5NSnNpTP6goe8NZGdFFqOuZ3M0 cFPbOAJgVJLBEhYjE45jVCfiTh15BMztSJKlOnSoOCi1Ao5MXaWoN0naQENwPxZ9FGEcQsZyHUprKL5D t3LufSRoFRg+Yq5OEB4vk8KmLQesWMKyUI6jyr4AYMnPKuXkP5SfrmH6DUW3CMSdHf0RBLCcZTSpxDJg RCPnXOMZRmJlT5KszO57RLHUFd8+DQplbmRvYmoNCj E0NTZix4FsNNl6YM3OJHAdLKl1aALsVnFod7tpHgDQl9QvYIF9BGYoYducSDPswWvzpQ1pHHVDRGG1GV ppJP8sESQuXHJtBlXrLIOTRD9IZEObQFWmhMBuDPWpARQCOO4LCPhlAQT4YtpguvGtzOSxRXtjQE6YNG JlbnQgMjQgMCBSDQo+Wt2TRN2ba5NyVCntQxXpWU0d xh7KEHuHGfEoU4H1iUFxQ7D0RDewUd7RMFXxQXEySxVwSQATHLstFF5IYG0wpdF0KW4AaEHiWMYqMFHg tYZxKFw1J49jvXUxKUdqZM1IRUF+Dillon+Ti1JOURkBKHqEORcKpZpLWVGDuGiE9EdT5LYv3JqN4GxHA59 nUbhveYuBYzrOL2UIE9fOSOfMXSSBY3KfXOdxT6zgw RgRNCeEXOKCvWdC74kzTEhGQFoYTGsKINzRk6FQZWzC8RcvwUqoIsuqwUjEKCpJPPUXC3KPRwgvyYknO NjwJvvMN43mFwcGQ8LJr3RMnHsRQ3cgf1OvTDpWg3DJYYtVa1XEBOqXXIeXHGnKSQ9RFYcMeGmQVyxOP RqUBAcYAI4RYOsGOVmGQ1NEcKdVGMlEjHsTnFhGEOg YDXriy5SYTNeJRWcDDo4DUNaJWVvWZUhVSxgFYRiTARsZKC8AUJlEZZbJO5NTxStMYHpXPNkGUNdPWYm HEWobr3YHCWvVMWdQnJrYpHbAXEzKJAfJDymTVBaKRLwQKN0QOShYVMrXV7DKwCzKQZpIXUiAsTqQVJc LLBcko5ILFJzHUViQoC7JWPjOQGyOTVyPPipTGSmLD S3FBM9NFAoSIRnUI7ZKcHzXDMhBRW7ENRtFOJgJQWeby2RHJViXTCnIIi9QVSuSVPuGZHhGCtvQDReKP Y2QnO0VWJkTXOqFN8KUgUzDFOyZFy0EFYlUSBnSTRezd3JDNMnQMGsSsh3YqBaOEPjMJGhMDwsKVNhNW X3LROtJMCtARJlTZ0ZHmQtHBVzIAzeJNtlGIElILHy cv8IAHLmIVUhAGM4YSRyAZRuKNHbQDtsFFUgZJG5Ldl3WMTwTCWuXR9CDqTaKIVtSSq1RSndHMOrQQOm vr2AHJJhGAQhNTs7DzYtNUHnVLEzGUpbXIUuILEwZRAkEFCiDPYqHL6MBkMwGZNyLxJ7UCobYTPxLYWb rj4RLGBoKEEfBWw0MdGrFJGmNHJuEHkeQETnGXKiZK O3HZRuUMKsXF5JOmVcKXRmPlDaKCLrTESyOCXuqr7BpWNxfFabzw1UAEsGRx1TuVmnHIV3IEszRd9neW OsIgLjVKIHNs3LazUxHYSeGJJPPHunMAPsPLQ8LZIbQKZ6GqKaF8BpHtUeH8JeBcDgATFdFVQ1RPY9Sa D5Rwu2OeSoLGH2ErW4VbMzVCGjUdSbHXBmTYT3Zwu2 NDg+WR8nGQq+Hz4Pj6XqugC4iwHyNYvgDeD6Na4JHAHAC2JRLz== ID Date Data Source [id number] 03/15/2021 12:37:15 PM EDT [facility] Name Value Range Interpretation Code Description Data Stephanie rce(s) Supporting Document(s) Care Plan [facility] JJYQFl2eAeDCWiFn81/LNHslWELsg1YjIAumRWu4IZyyLBTzF3OeOPA8xO6xKPO6CSnOInMcIiBpBDJ7 lbm [file] JQwzXWD6OxAtJICxVPC3D2Z3Di1kLUUWJp1+GArxtGSeyEaqKTGSExW3ExE4NWziGTPJQk2C ID Date Data Source [id number] 03/15/2021 12:11:43 PM EDT [facility] Name Value Range Interpretation Code Description Data Stephanie rce(s) Supporting Document(s) Consults [facility] FCLDUe6gMxYJVbKx51/UUUcuAZGuw9FzKOtmWNm2UXbyXUBsF4BjHAF1fN5gGRK3DImERbKoDmQzJHE8 lbm [file] ICAgICAgICAgICAgICAgICAgICAgICAgICAgICAgIC AgICAgICAgICAgICAgICAgICAgICAgDQogICAgICAgICAgICAgICAgICAgICAgICAgICAgICAgICAgIC AgICAgICAgICAgICAgICAgICAgICAgICAgICAgICAgICAgICAgICAgICAgICAgICAgICAgICAgICAgIC AgICAgDQogICAgICAgICAgICAgICAgICAgICAgICAg ICAgICAgICAgICAgICAgICAgICAgICAgICAgICAgICAgICAgICAgICAgICAgICAgICAgICAgICAgICAg ICAgICAgICAgICAgICAgDQogICAgICAgICAgICAgICAgICAgICAgICAgICAgICAgICAgICAgICAgICAg ICAgICAgICAgICAgICAgICAgICAgICAgICAgICAgIC AgICAgICAgICAgICAgICAgICAgICAgICAgDQogICAgICAgICAgICAgICAgICAgICAgICAgICAgICAgIC AgICAgICAgICAgICAgICAgICAgICAgICAgICAgICAgICAgICAgICAgICAgICAgICAgICAgICAgICAgIC AgICAgICAgDQogICAgICAgICAgICAgICAgICAgICAg ICAgICAgICAgICAgICAgICAgICAgICAgICAgICAgICAgICAgICAgICAgICAgICAgICAgICAgICAgICAg ICAgICAgICAgICAgICAgICAgDQogICAgICAgICAgICAgICAgICAgICAgICAgICAgICAgICAgICAgICAg ICAgICAgICAgICAgICAgICAgICAgICAgICAgICAgIC AgICAgICAgICAgICAgICAgICAgICAgICAgICAgDQogICAgICAgICAgICAgICAgICAgICAgICAgICAgIC AgICAgICAgICAgICAgICAgICAgICAgICAgICAgICAgICAgICAgICAgICAgICAgICAgICAgICAgICAgIC AgICAgICAgICAgDQogICAgICAgICAgICAgICAgICAg ICAgICAgICAgICAgICAgICAgICAgICAgICAgICAgICAgICAgICAgICAgICAgICAgICAgICAgICAgICAg ICAgICAgICAgICAgICAgICAgICAgDQogICAgICAgICAgICAgICAgICAgICAgICAgICAgICAgICAgICAg ICAgICAgICAgICAgICAgICAgICAgICAgICAgICAgIC JrRVMbVLUaUMLfVPNcVGBzJYKnRYYzGKDmYQDiIXFvQLg3P3usFGVbDZHqTL7vEKp8Aa9+DQoNCmVuZH Y6bdCcrE2PEQ1vo4WcCGnnXQHja6KoYKs9KR7PBPHpAUfeZD3ORQvudk8KWTIzRGAwmIOSa0ffSrArLE K9ZTUuGlzbAP5WITKnC2nbeoPtQBJuJEUAQG9DZaFk O3GenC78MXEMVk3+BQbvwpSlLvbHMvV0IUTkd1CwKJg2DT6UWVIdVrmpg4VcLLnlZNPILHwgIE0CBCM8 BON2OJHuXm4YQEHfH157oaPbLV5RIe8MWkRpDD7vua6PNDbpCIUzMdxLLgk9EQztEF5FfWGzVQhAs84s eMq3aqRbkITYIWMaBS2vD25nRFctXP1NCZE5BJpfVJ 2pALAgJDOgVnFwTVQMJF4NTMUyXMRakBCgCUZgDHRWDL8DZBjlWAG4MaybowQqxAUkNTyrOI0UEJRjvn QgMTcgMCBSDQo+Bj5EBD5ru1NmKKniOTPfVO0tpw3BPYkGJoTjS8I0oZYjG2O1RWxjNp8ABCJxRCMtTF PyHBWGZErtZJ8TXA4jryU9AL2MmUWpAVPqKARqiQMv ONz1D63kxBZaRLodIU9VMOY+Dillon+Yw5KYPVtNINxZXSrKiWlUWSYZzVxW5GuQ7MUs2AdA3XnVP76gLmj jnIhXZqwDJ2JHE1yXUZwKDDWLY8RpHCfzM9omoGsXjSfWCSERgWeZ89gwCXiDFGsIIU6WUGwRu4ZXQHl X3QigvWsxHnmflAjZXQqNJXJTK7AXXiwgjMzjKWptV bbKV62iCmzGO4VCp7VFwUpNI7tey9HcELaTh3YLUGbRV4FVXYyBASiBTHoZPV5KZNtTsWgXQkqQEYuVL WkIFC0HWDeRJGiCJ8AYpDqMGGvXVS6AJkkMUKkQHCmxb7YGAWsRAZpBdY3ExEwGJStMLFaIKazKZJtRV RaLYX6FZCrKPTpYW1UCpBkZBJcTXQtTGNzEVFkCJPh bp5VOQPhBAZzDWXgAQQuMSWeQDIiDPsgUPPuFDAjRsM7BZQpFGJsXJ0NYeBmBFDhFUI2RwupSOGoYZBr mr7SPSIzHGJuYrz1ZbBbGCEeFFHgECfmFZRqJWFiNjWgUTDrIDApAX0VQrYmPQXzNOD9SDkxGUWxSOHo pg1AVZNiYSKtEXS6ZZIjURKgIXWfIAoyVZCaYFS8HL G9DNEqGULnWK3LUjMiDAIuFTNtWUdrJEUpXZAuka6DIFSfQQZdYKYqRNFlRXYaXDAiUIkzEGBkCJL1WO P5ZFTcPCUyRX0ZFkEnCOFoGJmcKOElHORiBUUgaj3MHEFoTVKyEhI1PKSyIDTeTGEqUVjuHOEoCSW2UL B4BSIpAZKqZA1XQaQbPBeeMJYNEjx3HYrkG9j1DDVy AK1CD4Spd2BoREppVDTFTYgsNK8iayMaCNApAd9ME9wPHpt0GEGnPNFzOCD3VuudKCXsHuRsClqiSVGc NQU0Z8HoTO2zGTK1A8R3CJNsFrxnF2G5UvOaN8GtAUEyGJE1SKp7SCRbYjVwXO5XGs4DCsF9KFP3cUFp Vj9IXer5RG9PESMEX8JDMi== ID Date Data Source [id number] 03/15/2021 10:14:33 AM EDT [facility] Name Value Range Interpretation Code Description Data Stephanie rce(s) Supporting Document(s) Care Plan [facility] QVSLMm8iVoGYJwNu93/PQIvbOGLqi6MkAEbfEHi9QGglDALzZ0TmXOH4qU0aXMK0ADuUAtKrQxPuRLZ4 lbm ZqPkkHUiNaPZMeOxtBNsGuVBzgTmgraITfCQ6BlAK9PNFoQ85nNVOfJWAuZ3DxXCLkXKp+Rx2DCEPriJ SgQS1YTnvF0Gsptuw9WX8fDD0Tn15eEcqWWHUFtLdQFhMvniOtgZ4xew6IYmRw1fSRngl19YMSViNu6S RTZ3laPJmDPROoAfxc9guJPPAsj7/VMGhGAHO5j/s1 gCV7eXhkeiI8dbk1dIa0nR0MAeCzfmN+QvrVU1+/vRw6kL7Wj9PrByILy8UBitRgqMqLfRcqWuauawn+ oOZ5bf2vVYEjalEcARhDImT3KHMy96rjgfPL+EeR1oZWP74R64ZMfw+CoWg5sOIhaEiBPNCchkT7O8ah gclbv+sudhr7R7GRZEhAg0jKCNNSX0/jwozslj1Ul9 [file] ICAgICAgICAgICAgICAgICAgICAgICAgICAgICAgIC AgICAgICAgICAgICAgICAgICAgICAgICAgICAgICAgICAgICAgICAgICAgICAgICAgDQogICAgICAgIC AgICAgICAgICAgICAgICAgICAgICAgICAgICAgICAgICAgICAgICAgICAgICAgICAgICAgICAgICAgIC AgICAgICAgICAgICAgICAgICAgICAgICAgICAgICAg DQogICAgICAgICAgICAgICAgICAgICAgICAgICAgICAgICAgICAgICAgICAgICAgICAgICAgICAgICAg ICAgICAgICAgICAgICAgICAgICAgICAgICAgICAgICAgICAgICAgICAgDQogICAgICAgICAgICAgICAg ICAgICAgICAgICAgICAgICAgICAgICAgICAgICAgIC AgICAgICAgICAgICAgICAgICAgICAgICAgICAgICAgICAgICAgICAgICAgICAgICAgICAgDQogICAgIC AgICAgICAgICAgICAgICAgICAgICAgICAgICAgICAgICAgICAgICAgICAgICAgICAgICAgICAgICAgIC AgICAgICAgICAgICAgICAgICAgICAgICAgICAgICAg ICAgDQogICAgICAgICAgICAgICAgICAgICAgICAgICAgICAgICAgICAgICAgICAgICAgICAgICAgICAg ICAgICAgICAgICAgICAgICAgICAgICAgICAgICAgICAgICAgICAgICAgICAgDQogICAgICAgICAgICAg ICAgICAgICAgICAgICAgICAgICAgICAgICAgICAgIC AgICAgICAgICAgICAgICAgICAgICAgICAgICAgICAgICAgICAgICAgICAgICAgICAgICAgICAgDQogIC AgICAgICAgICAgICAgICAgICAgICAgICAgICAgICAgICAgICAgICAgICAgICAgICAgICAgICAgICAgIC AgICAgICAgICAgICAgICAgICAgICAgICAgICAgICAg ICAgICAgDQogICAgICAgICAgICAgICAgICAgICAgICAgICAgICAgICAgICAgICAgICAgICAgICAgICAg ICAgICAgICAgICAgICAgICAgICAgICAgICAgICAgICAgICAgICAgICAgICAgICAgDQogICAgICAgICAg ICAgICAgICAgICAgICAgICAgICAgICAgICAgICAgIC AgICAgICAgICAgICAgICAgICAgICAgICAgICAgICAgICAgICAgICAgICAgICAgICAgICAgICAgICAgDQ w6V4twBMEoNIAkLA2lFXv3Jb7+ICbBIhKpCGN1vmVgpS4BDN3yp8KhAGacICQpx4QfHKx1LW8HZWKiUS xjUK3IKDpofi4UPPKdNDNmbOBCd5elWoTlOXB4MNGl GgucHO6WEOUsH4summUkKNFxPSHHMG6QYmZoK1MmuY95ZUGMDj5+GPvoyuKrRgjUJcG5HOPsn3TfDRl0 FR9FUKZoEbzlx1KzEpArBNNGKJvdUP9FAWM9EGQ4WUMfQp1DUVEhP609ahJgJQ9FGo1EToFcZJ2tug4L HxCyXAXeJcrDAhm4XEhqEN8RtWYrGZrTGZEuYNRdGK 6qVjuqJGYhkNTrJHTAz6A5QVKxVEIVTSA5FTwpUG2iSLMjWSMuUsA2DKAZPC8IXMMlHGVqqZRrCKIgKV MDRS9OWJzuFGQ0XotbtwBoyRPxXWbfGL0ZSXTxqpJmUaDnNZVCAIn+Qm1BTB4od5JvBNnmMhOaPO8bqb 9LLEuPOaHcU3Z0rYTtE5V1ZEidUa8KBNIjUPJpUqNr NTUPZIqoCE7RWK3ipkD2IA4NsUUhVFCyATFktSPuZOa7B93xjBAjJYfxXD1MWAB+Dillon+Eg4VTGYuDDBc ZFViKfNqSCJKRyElB3DqV8QVh6MqI7ZlWH28uDxjwfHoTPsfIF0CRJ6qOTOmMBABVX5IcEHaqF2wamHn MYEgLBDHRrQgR45mpIWsDDMfVZN8ITSlSj4URLKyC1 ResbDcsDofujUoHGKmCKPYSG5HCInftmUegVOekQluRU42fQjqIG0VIw6MCeLaDC6vrb2YrQNzVt1RRC XwMF8VPKQaIGJfAGHtWZW8IREzOqLaRLzsWXKlSAQrRKU9FYEuAMPoSK3NHeAxQNZzCbJzPrphKNJmAA Pjgw0HDHVhQPSyBwe6ZCXmBBVkYHPyPVbdUTZbSDBw UDY0AQGhMPOtTP5DKlIiZVEbSOQ9WrNnVBYbBMUbra9UBKRyPWDlWxThRKHzPYGpROXuVXsyILJfXTHn XMj7KECgUNPgVB9GAnDxDDOdXUD3KGvyALCrNTWppq6FQKMoUDFzTau9UlAhJEVpFUDeWFwgTRKdLHT5 ZMBjPCVdIMUiXN6VAoDtIDZvAGErTbdjNPNjXBLasv 0IPYTwLSXjLLNlKWQhEALyDYQyKDgsZRRfIMW7OsvvBSXwGPKxKG8WLxUgJSHtHUx2JYHnEQRsBQUjyz 1ENCHhHLRmQFD8WTYiJEGlOYReRVhaHIZxMWB5VPI1WSOlNTCnBT2VJwFxHRJgICs1VCEgOUFbUFSmtz 8MASOqXWFhPUXxRnSlARVyOZBtOUeaJPHrHCB1XzLl OEWkBFGvAX2MUcVoGISoDQd2IGmhCNRpFHDytr1FZOCiKLYeIXf7UGJnQAMvYCVcMMrwMNCvYSXuVST5 CLIgPDRdXJ2XBxOuJJJtUsUcUBgsIQVzDWJbpg8FDLLuZYHqFQTmVEAyPIWoRDShMEcePYTuGEKcWXd8 YMBwHGMzND7POyPxATPzKqDbRRcqSYQfEMFztd5BDT MmDKYoJmE6PNAkYSXbPZTiJZx6qeOjsDPqHIw8DZ6BG4EfuhRtIsvERe7Qe006ONV9EGWjTl2VA2eoXb 4mQTSrSJBWTy7TWAy5HAV4KSRwAFmbBJN0QHh1EQSeCpWxTYAwOlc8RWAcYfC+SNblAMU2AeW8PUCzDU LrRnsbJ7N9AITkH5M7GIH8HRGxHV8aGVZJLp0+RIotfZUdpZhaPCJPWzIlDBO1AAvtPGOEAu6A ID Date Data Source [id number] 03/15/2021 05:49:27 AM EDT [facility] Name Value Range Interpretation Code Description Data Stephanie rce(s) Supporting Document(s) Nursing Note [facility] SYYXOk8cNuTXDzCc26/DSKogKRVml6JgPSmbMJb6SSygBZJnO3KsNLP4eT7gJFS6ELzUKsMyLqTeKXR2 lbm [file] GMS8VSJ4VvGoXB2IGi4RMsC3FPX7cJLoSj9IRyD1NrUKDvMzDC3WNOd= ID Date Data Source [id number] 03/15/2021 12:37:56 AM EDT [facility] Name Value Range Interpretation Code Description Data Stephanie rce(s) Supporting Document(s) Nursing Note [facility] CWHTQt8qUgFVJkCz34/GPThlPAUti2WgTIgiTVw6RFdxNNArU4JxVSC1vM4sZCT0LTvMStRcSmMiXNC9 lbm [file] ICAgICAgICAgICAgICAgICAgICAgICAgICAgICAgIC AgICAgICAgICAgICAgICAgICAgICAgICAgICAgICAgICAgICAgICAgICAgICAgICANCiAgICAgICAgIC AgICAgICAgICAgICAgICAgICAgICAgICAgICAgICAgICAgICAgICAgICAgICAgICAgICAgICAgICAgIC AgICAgICAgICAgICAgICAgICAgICAgICAgICAgICAN CiAgICAgICAgICAgICAgICAgICAgICAgICAgICAgICAgICAgICAgICAgICAgICAgICAgICAgICAgICAg ICAgICAgICAgICAgICAgICAgICAgICAgICAgICAgICAgICAgICAgICANCiAgICAgICAgICAgICAgICAg ICAgICAgICAgICAgICAgICAgICAgICAgICAgICAgIC AgICAgICAgICAgICAgICAgICAgICAgICAgICAgICAgICAgICAgICAgICAgICAgICAgICANCiAgICAgIC AgICAgICAgICAgICAgICAgICAgICAgICAgICAgICAgICAgICAgICAgICAgICAgICAgICAgICAgICAgIC AgICAgICAgICAgICAgICAgICAgICAgICAgICAgICAg ICANCiAgICAgICAgICAgICAgICAgICAgICAgICAgICAgICAgICAgICAgICAgICAgICAgICAgICAgICAg ICAgICAgICAgICAgICAgICAgICAgICAgICAgICAgICAgICAgICAgICAgICANCiAgICAgICAgICAgICAg ICAgICAgICAgICAgICAgICAgICAgICAgICAgICAgIC AgICAgICAgICAgICAgICAgICAgICAgICAgICAgICAgICAgICAgICAgICAgICAgICAgICAgICANCiAgIC AgICAgICAgICAgICAgICAgICAgICAgICAgICAgICAgICAgICAgICAgICAgICAgICAgICAgICAgICAgIC AgICAgICAgICAgICAgICAgICAgICAgICAgICAgICAg ICAgICANCiAgICAgICAgICAgICAgICAgICAgICAgICAgICAgICAgICAgICAgICAgICAgICAgICAgICAg ICAgICAgICAgICAgICAgICAgICAgICAgICAgICAgICAgICAgICAgICAgICAgICANCiAgICAgICAgICAg ICAgICAgICAgICAgICAgICAgICAgICAgICAgICAgIC AgICAgICAgICAgICAgICAgICAgICAgICAgICAgICAgICAgICAgICAgICAgICAgICAgICAgICAgICANCj w/aFVmR6chpHNsxwT0E9tjWw0VDc0RVM6uw1WnQLOzZXntpcOaVamRCzUeDPJeOvwPKpg3OZqtBQ7JvH MgL7QnZ3RmFRnmOD7VLWVfFJLzuEPfZOUxXXGvFuW4 VNTrGAmdSU3NhWObNHxeVQDrDBYiXE5XIUAfK967pmTfIF5XBo0XHgQaRI0bfd9IFpHyIILiQmkMCkc8 ITexNC6BrLHquKEuTQHuIHPBKuAqQ9azj8NjZfYnTYUZPYrqAO3Za4FrzLXpNJq+Vp7DVV0bi7YnGIam NWEhLZ1kbl1KBPkOApZaD5JrhHzwQP60fcWkjxrlCn 59MBDuyOBYGQGrnqHQAVWvj3XcNNGUCJU5FWurNd9pXCUgASScJiFcWRRPKI9ODQSaZTPdlRAoUFGnJD LLAZ3DUTvtAMK7QibbwlXlxCIqZLkqWE4JLERrgrIrBwIrCLAHVTn+Mp9RDM4aw7LsZEtvPqEbMC3cyw 5XNMhKAgXmB5P1iGGvY3T6RQtoXd4HEZGuXFGkElZg LJDVKZjsRN0JCK9vylC5BF8FvGOxXBYmCGNxgGBdOJb9Z25coTKvJFdzGO7PNIC+Dillon+Zg1AJEYkTFJu SVVzBeFjDYMRFpLgD9TvU7GTx5AtT7NtSD42bBtfbzGhNSvbXC6KGI7kVKWlRWQLMR4XsPAhnL1ldtOs LHQyOHCKDcNjA38zpAAiOTKxXITbILIyLy2JITPeJ5 NljiFkyShryoJyLLDpHEIOXF4ZXScoqrJvkZSrfXaiQZ20mJppVL8UGh6VIiJjRK5eal6TiWEvOu1KRN UpLr1NJIBiFGEmWQEgSST5OYGxRzSnZRusRQNdLMAmSMU3TNVrDHWnRM3NQhDpMAPoVpL5MYRqRUEtTX Rbxm1QRWHmJJNkKyV3MJIzAJAfHOQdJHahNPDcRESz FXX3KNTfXOOjYC3PFfQdZMWdLRY4VidcPYKoDNYtmc9WTAVxBRDkWiA9ShQaDUUdHRLnJRzzQXZwOIO1 VKSlALCuLPAbKF2XHtAsECGuHXOdCARsVBAdUEWumm5EIISlXMTmHYOzExDzWINpQMZdLNsbOAWgRIQ4 Lry6BEHySZBlLJ6VBgWqZQSxGJJ5IQQhSCUxSQOqec 7PHRZfEJUnJKq3SIPnMNWjAPVsMBikKPFsDZS3EEN7TAAmFYTwXB9MZvCvDFNgPBk8MdYnDAVaYIChyg 4PROVvWGGiKCLfUWGgPAQbLORqJQogWMQmIJX4KVc3WZHoNBCpOY0PZcIcSLAuGBkbQqSjAEIxTRBzpb 4JFHYzXWRoZQc9TkChSQJjTNUqVJvnIVDmOMQvUFJy EPToELMpIH2MMqWdHPWrUiTzHoQvYDOiOGExtt4RHYWxNIQqNDLiFEAmEUUcJATgHKegBFEdHXPiVWp5 QBEqFNPhNF1LUqIlEOPcYsGcEoDcBHHjRCJjpd0JVBAhOCTlNzf2QyEpQCPxYWZbEMskFYSeOMCoLEF3 USGrNEZxYC4TRiFaGTTnPeH6HCwhHNIhTOYnza0SkU AjyQovmt0FXXoKId6UgAauPPO9JYnuNz4kiYBiGgOhFGKWLs4SfwPhRYLxQDLUQUquIDTgVZD9AzC5WB v8XFGfIEu6NqA7HrSmGDQbBVBoVRb0VeysWtS5CtOdPNe7XMhoFNQ6CNj4Fhq4SpVhCDRwJcK3QwA7E5 M+VS0pFLc+Ok2Ql1QvylC3woQfKNhgQtXzQu1PCEWNZ3PEHr== ID Date Data Source [id number] 03/15/2021 12:37:46 AM EDT [facility] Name Value Range Interpretation Code Description Data Stephanie rce(s) Supporting Document(s) Care Plan [facility] ADQVZj1rTqQYXtYp26/SWNssJLVke2KmTAenKQz1RKhuCELvM1SzVWO1xK0fOYR5NAxFByYzXhTkLED8 lbm [file] ID Date Data Source [id number] 03/15/2021 12:36:31 AM EDT [facility] Name Value Range Interpretation Code Description Data Stephanie rce(s) Supporting Document(s) Nursing Note [facility] VQAVEz3oObBAWnRb48/UFFdvFOQvk3PrCTtiUFj2CUwrWKZjM9MyDKF2bL6wCZU7TOkTNdMxRlPwZPL6 lbm [file] manager gHyPX98RVXQXGZVnar5lWspi7YY8bps01NYTg+xidOb2rHSlVNKwm/PsTwFPSoriaVlJ+xXP/paVzBMa rOfUhcSPTunfUQiBNGnQnVEJMs8eFLyLzlkrcOGHcJ fLZMq7J5HLGw+Tw+BJ+4Dx9hw8FYE9ZNNtbFpvWF2lJMqsNA9mhNgBqXIiFF+/urSII/fdFxP6ApxRjk AjugTMbIiuFGAlel0s9TBWVyk1SOC9cmjfTXscppTrq54YQTpEClsLUol+qPqNbS7z31n0xc3ak0dEsv PgT8CJA/ucJroPRw/hkegdMM67nVZVkyjvWzZ9hJW8 s5RHntwq7AdAXFoKqitsrTcqJliTEJmDG2lAaOqeG9nMsiRxePoNBYZZspSsYMjX2QEnXZOAVwIYkSnV dSJ8uTQC9LHtQwEM5WhYWWtyhGDJtJUAVzlc/niGP5KOC+INr64vMMr5UA2lSGrSjegWuEwyur2Iuyd0 udNs17OrPQbc2L7Gj0Ngf5pyilr8U8J/AyK9lxVCO9 afRBIR86t6x7SXu/QcqMCKcKhYabJbVBXaoER8ZrE3isDBfOzMiQC7SSnbRrPYkDrJGEdX9tehpX1MRm srhR5cRa4mhPu0EPfEEfKFCTcQZk/ghfbjp9CYIvnBnVyRDvj57f5K7ybkdZhbhW3Yo2FdoPFz3eZ0JE 8m+/hvkR93jmUewM5q6+jlBxRUqaAdcfhw6mgFRNwx +OF74Ce2exZz3C6iRQ3SQoKS0eenh8pbTTaEt3Rx4X4D8dM/HEi85JmG2yfKMn7MPrDX/Y3Lal6XphW1 V1QFTqn+27n3hgqmhEs4+z0vmJGLUCyibqxyFkWRDAnNOBjqtUpHp6+DICleMziM6c/g7XKoMtHJ6x71 5Cvs2xf76lgYd05Dp9ShRW08tW7C0c49J8+gxRJ3lb [file] Zenqxi2PiVAXnl7ILoMDe2nI63HqX+I87JjvoC0H4txs9D+t9JwkCu5UTg85FEYLKwTb19sq98E1+sample sawyer [file] ZrTUJ2Yom1Vz6pKLYYCe8+LBvnlVYlqTqtORZOWjB8TEO9MSkvYKZSCy0B ID Date Data Source [id number] 03/14/2021 04:35:03 PM EDT [facility] Name Value Range Interpretation Code Description Data Stephanie rce(s) Supporting Document(s) Nursing Note [facility] UGSXGp6uVqVZYkDm21/KSUwjTZCef6DdTDsqVBf5HCtxGPSyH9IfPFC5cU8gERL7LRhSAkExYaRaZNQp lbm [file] k1LG3KQEJ0KRInAt9UYAAzUZ8FXPYeQUYdSYWPBsQw GKGxHbCkQOOoVRHDXYmlGALbR0KdVOC0ALDfPu3+VBikEE1PK3UpVWY9KAt7XJ3+OZdmVC3AkYRYA6Tq yXKqVKmmZ1CJTC9UQQG1CH9YhHBxHD5UkXALX3ErfCScKw2sYXLem1CiTi5cE8XJKHLPECIhJWzfIScy MTYoKWq8C4B7YORwA2DMV068gKYzcCp3Vv0mX7SGXZ qRFiJqOTboVPdhORFhGFm7P6H3PDFxX6YPJ9YnFdXiaaCuX9U+EwVvTTJFHH7MVXHRKOk3B7Q7qSTjI1 Z0yRyTbIN0PW9SAG0JpOVvsWFhp05+WaMZPqGsA6FHT3XAQA3BJOk0F5A5iSGhT5L2uIaWxAQ0TR2EWV 4DaEwarCZkPj3mJRbzUCB+Ox8APr4RPiRhQA0yvr5F AoJiJJLiHkaWJqc5H9fcbdz6yRCeUbO9U0J4ErU0pKXvPY5MH4I9hTBoOWH3EOHgtSV+Rj8Bf2NcXGNy THb4G6wkOHDbTCKtApHcmJ39K++2vgijyNL2E3f6MDZOhWXwsJiYmtAfI5dFLQU9e4T8KCv/Nf5VUPP9 tAl4uWQfQMHkOCp6eB3xnMu4VhElVZ82VXYyVIovgD 6zEtl4S8Jzy1PbBc0cNw6ueQCoAz7JLjXkWIU9knEaKcOMUiS5yBmxflynXBP4X7z4pZL0Kl34r8uooe Qwf8ZcXsR5FXwkESOlPwWywaVhJKQ5ucUdkI9jjwMgFn6DAUMqXVxlzeWfMdIZRg4LSqLqQY93ScrzrH 1ldGE+DQogICAgICAgICAgICAgICAgICAgICAgICAg ICAgICAgICAgICAgICAgICAgICAgICAgICAgICAgICAgICAgICAgICAgICAgICAgICAgICAgICAgICAg ICAgICAgICAgICAgICAgDQogICAgICAgICAgICAgICAgICAgICAgICAgICAgICAgICAgICAgICAgICAg ICAgICAgICAgICAgICAgICAgICAgICAgICAgICAgIC AgICAgICAgICAgICAgICAgICAgICAgICAgDQogICAgICAgICAgICAgICAgICAgICAgICAgICAgICAgIC AgICAgICAgICAgICAgICAgICAgICAgICAgICAgICAgICAgICAgICAgICAgICAgICAgICAgICAgICAgIC AgICAgICAgDQogICAgICAgICAgICAgICAgICAgICAg ICAgICAgICAgICAgICAgICAgICAgICAgICAgICAgICAgICAgICAgICAgICAgICAgICAgICAgICAgICAg ICAgICAgICAgICAgICAgICAgDQogICAgICAgICAgICAgICAgICAgICAgICAgICAgICAgICAgICAgICAg ICAgICAgICAgICAgICAgICAgICAgICAgICAgICAgIC AgICAgICAgICAgICAgICAgICAgICAgICAgICAgDQogICAgICAgICAgICAgICAgICAgICAgICAgICAgIC AgICAgICAgICAgICAgICAgICAgICAgICAgICAgICAgICAgICAgICAgICAgICAgICAgICAgICAgICAgIC AgICAgICAgICAgDQogICAgICAgICAgICAgICAgICAg ICAgICAgICAgICAgICAgICAgICAgICAgICAgICAgICAgICAgICAgICAgICAgICAgICAgICAgICAgICAg ICAgICAgICAgICAgICAgICAgICAgDQogICAgICAgICAgICAgICAgICAgICAgICAgICAgICAgICAgICAg ICAgICAgICAgICAgICAgICAgICAgICAgICAgICAgIC AgICAgICAgICAgICAgICAgICAgICAgICAgICAgICAgDQogICAgICAgICAgICAgICAgICAgICAgICAgIC AgICAgICAgICAgICAgICAgICAgICAgICAgICAgICAgICAgICAgICAgICAgICAgICAgICAgICAgICAgIC AgICAgICAgICAgICAgDQogICAgICAgICAgICAgICAg ICAgICAgICAgICAgICAgICAgICAgICAgICAgICAgICAgICAgICAgICAgICAgICAgICAgICAgICAgICAg ERJoXNUfTDIiJWRrYGEvSBCcTGBfZBMjOOy7I2wnGBClBBNpDV4xSVo1Qe1+ARzAKnHaNOL7dyXmpX6T MC9pi0JvSVzlBJQju2RyPVz4FR3XIIIiTEqqGJ4BPC ilup5FAFCoVHElpQLHy9caDwVvTOS0XKWyTjsxZJ8MUEWiM5fpmzZwLNQdEBZNLA4ZHbIxR2TbtA09GQ ENCj4+VHervgPxYejDRlVhMULyv4RgXQh2QG3OONCyFugbs5KgZwErYRSFHBknYK1UCXJ5LLYrYFYtMu 4ULNEwY175pvEpFM8CIv9HHjNxKF8yyt1LAhJhIEQy FuvZNtm8DRkvTC9HfRTeLXgEmKCssS1uEB3rbJVtCmjkRXssicVoUmjakJNuh4agd7zyBAOMSSB3JCyj By4pSJTjENN0VsU9PGVEGX2ZASWsZOOsjSCcEWPuYNZMSP2GBTgnPLE2LmvybfBnbXRnPBpmXA2QDZRw bnQgMjIgMCBSDQo+Py4PSX3cm4OsDNkoAASsUL5ohi 7ILZlOCdPhM9F4oCBqN6U3OUbnCu7GJZVfISIwYtGnRKCJXYlhZV7TWK4ewrT5LY9NcVGyRJVeTSGsqB HuMWk2I94chVXqJNkeWX1SKLH+Dillon+Pe9QBGSkXFOqOULmFmGhQHHJNfOhL1SkJ9GLv6HiS3SdHE68xM zlbyGtKIxyCF0EYX1hQXLwHDWQQN6DzRIsdP3mafKd DnSjSBFUJxAfF78doOCzALOvXGFvELHwWb5NQVKbV0GunuBjgMukzfMiBJLyYLMHQN3UPUamkrPtyAZs cEwwUP00xOnwYR1XDq3HYoJuZL7rbl9BfLKcEd8LCADdVB2WTLHpRPLkLCSnIUP3FAGcUpQnEPyvAFEm TLTaATC3AYFqLOLrQQ1PVcMfESAzYPd8WStcTXXuVV Zzeq7VTHRcWRYbUAgzZbCeMUGoUJKzXFmyJFAsNRBgVCU4LWAsFXXzRT0CUfBuRDLjIJR8AyErJIHtJB Hlnb9PLRVnDKViRBsiRNYeUZTeTHIuPFseHOQbCFLnFszcWWHdLPArKE9BKaFzAWMxHJT9FWWtFAWjCK Boqc0MTXVzKNNdKyX4PTXmCYXvXCImKCpnDPBsLDD3 VBD3PTByCUNoGP6ZRwKsBWDjCMBdLmZnIFJaFQDsck4URUZuINDlCVTlKyIzVJBiCNJdGIrsYEErPSP1 XqU5PUClJSDbZR7TNqVbRGIxJOakXWMkGFUiXDNbaq9CSYHdNMBrTwB6NENhPVFmNHRjTMcqOJPuKCT5 WTInHBKnJJYnJG8QYfIhHIYdKLv9ZyKpMTFtPRNkpt 2XPGHmXCQrWYWuIRGeSNAzAEGuHLgzRVVxGVT0WHTqQNHsTVViXE9ZLwPzDQKvKDz5ZaDtWYSsJAGijm 0CFUYmSGEnSYR4LcPlXEVfMVUlLEckRKVcTMZtTPHpQNJiBCAyHF1KQrTsUOEvPnG5BTPgMHUgYWZzpr 2UVZOrDIFzIOE1YOXaVFQbOOJjXKb0frSwiWPlREq5 OP0CM8SwwjLaTwBMTf9Pp319VOV3JOJyQa5VF1ftPz8kLFNzQLUBFo0PDMv3NoO7LmT5CIT3TyllZvt8 YThiZTRiMDMzYTNjYjUwYmI+TSqdJsBoNZx6JrAaMOYwMnguDOKmXOYlGoJdV2PyRSWiYi6nGCYJLe1+ AZmjdBSsnLhmRKIVBtWpQvb1YEquTDFDRn1O ID Date Data Source [id number] 03/14/2021 11:53:06 AM EDT [facility] Name Value Range Interpretation Code Description Data Stephanie rce(s) Supporting Document(s) Nursing Note [facility] IGNCUs3mLmWBBxYc93/XGHibTRIvo1LiMShsOBv9GRbcDXAyA8NxSBE9qE6bVCS0PQbAFoWhFsHhHKLz lbm [file] L3QYGpNiL8TsMpLrYbPxCoJlUcEX9OMf5AJyS7PFM2rVDvWt4GHcWfHZoSVoUuIB2WTSc= ID Date Data Source [id number] 03/14/2021 11:44:44 AM EDT [facility] Name Value Range Interpretation Code Description Data Stephanie rce(s) Supporting Document(s) Care Plan [facility] ORRRXe6uKaTGMsLw91/AIZliOLZxc2CaRIgfKBg0HDnrVDDwM0JwMRK6gO0lUNI4SRwOAmFcTrNgMNId lbm JlMzzLHqXvRXZcAuqLFbFnIZkvVcwqgUDdZZ2BpET1EDBlF56uMEGjQEYsB9NfAVn7CD5+PCdcLKR6ww YglT2TXYAyOQze0cVVce+w/7KVTktBEPmfMqlW0uNNhenSd4GZatS0TN8im5RM/qeVx2Yu12nI1sPIzA DAEmzzSdfbbcUV1q7cvZNjOXN/4iR9TmcCgDmTUgEh FmLVKxFCCwQzLCwWuFfJ/6lDhwJSTUzzKAsyRLcRBTxAbPSDTYPA9SwVJwXkBla6qJDzXRbah+4xAxcO dDnpEAo4fPsvgOaqPm0z6zF5cZ4FY9nbjzAxMHhxyJDiI8XCLBRNGpm4dP7PgwHOqISlKMptZIEdHB0u 7pEHIhiuk7pcV0vG4bZdPZlfccq1eAsFF24djDqaBs qhJMV5ouDzMjX7awcx/BLBsqepnXyfdT3lgZ3WYnNfsJO+pvXEsqxI4c384E5CIFI1nvfu79sKL4Kwx6 vn3IxYkhoJGYezsBooXMk2y6cOtP6YMUuiv09h++Bo5AyZb+mPcbrXEGbmDDeaV/rudy++EQbYA1GuHA8 [file] ICAgICAgICAgICAgICAgICAgICAgICAgICAgICAgIC AgICAgICAgICAgICAgICAgICAgICAgICAgICAgICAgICAgICAgICAgICAgICAgICAgICAgICAgICAgDQ ogICAgICAgICAgICAgICAgICAgICAgICAgICAgICAgICAgICAgICAgICAgICAgICAgICAgICAgICAgIC AgICAgICAgICAgICAgICAgICAgICAgICAgICAgICAg ICAgICAgICAgDQogICAgICAgICAgICAgICAgICAgICAgICAgICAgICAgICAgICAgICAgICAgICAgICAg ICAgICAgICAgICAgICAgICAgICAgICAgICAgICAgICAgICAgICAgICAgICAgICAgICAgDQogICAgICAg ICAgICAgICAgICAgICAgICAgICAgICAgICAgICAgIC AgICAgICAgICAgICAgICAgICAgICAgICAgICAgICAgICAgICAgICAgICAgICAgICAgICAgICAgICAgIC AgDQogICAgICAgICAgICAgICAgICAgICAgICAgICAgICAgICAgICAgICAgICAgICAgICAgICAgICAgIC AgICAgICAgICAgICAgICAgICAgICAgICAgICAgICAg ICAgICAgICAgICAgDQogICAgICAgICAgICAgICAgICAgICAgICAgICAgICAgICAgICAgICAgICAgICAg ICAgICAgICAgICAgICAgICAgICAgICAgICAgICAgICAgICAgICAgICAgICAgICAgICAgICAgDQogICAg ICAgICAgICAgICAgICAgICAgICAgICAgICAgICAgIC AgICAgICAgICAgICAgICAgICAgICAgICAgICAgICAgICAgICAgICAgICAgICAgICAgICAgICAgICAgIC AgICAgDQogICAgICAgICAgICAgICAgICAgICAgICAgICAgICAgICAgICAgICAgICAgICAgICAgICAgIC AgICAgICAgICAgICAgICAgICAgICAgICAgICAgICAg ICAgICAgICAgICAgICAgDQogICAgICAgICAgICAgICAgICAgICAgICAgICAgICAgICAgICAgICAgICAg ICAgICAgICAgICAgICAgICAgICAgICAgICAgICAgICAgICAgICAgICAgICAgICAgICAgICAgICAgDQog ICAgICAgICAgICAgICAgICAgICAgICAgICAgICAgIC AgICAgICAgICAgICAgICAgICAgICAgICAgICAgICAgICAgICAgICAgICAgICAgICAgICAgICAgICAgIC IvCAKySSQlBVm2Y3ddHNMgMEQcBD7cDAj3Gp4+WPtDNdZtPST3psKerR5QVO7iv7KpNGjjKBYph9ZiMX e1HY6LZWAlSXoyMC4MZHlrve6GWOJeXBKypCRVt0sj PnWeIMO5WPCyLtiqJP9VTZLwF0sdymOpDBDqTWUAAQ8JNhRnY0OjwG31XVRWRd7+DQplbmRvYmoNCjI1 DQHgv9JnMJk7JP7ZVVVpHoqnm6CyMqCwEXOGKKwtDP3PGFJ1VRM2YGRgWu1SWTPfO799nhAeKR1XTb4M NuDjJO0rhw9MHkOvDIDtWgnRRul7QFkjKK1JwOZxRK pDYKWcYZIbHH2oStjfUUdxylEhMyjedBBjp0kpu7tgSZRZRHP1OQmoXu1tNNKwYXNdVhE1WHAIJS9ERH QcYDPeiCUgIFOgJNFZIH8OTVukICX9YmnhbxKdiSHbXSfhNI4UWOKtzjHlDyEmFITIIXc+Jl7WJA1mt8 ZaIZmoIkVgTY6zsm3ZZUkGSyLcZ5W2uSBvM9L5XWto Rv0LDPDuTCBsPvJxNBYUSPbmVE8EUS9iyxG8WC2EyUErZXToVNKcoLRdHSd1L74ftZRaPMgkXK6TLEE+ Dillon+Sb6RPRWqOYSjZSLgRrWfKXEZEhTyQ4YqE0MBx9JbR4OgOO94zMnltnMbQAbyKN1LSQ7aGDLjXUQP ZF5PjPFdrF5ostSzHDQzYGENIgYyS81hbEBsHPBrPC Y8YNZuTq7OINOvC5GtgqJlpHtqjuEeXNZuPTTEXY3WVHtbcmLntIKhhZlhPN42hZlvAK4KNu0XEyAjNS 7onn1AiCXeCf8FVTJtNV3BDKFvHZCjLWOrPBQ1HSHwTiSwRGdzGAWdURRoJNG8BRDjZHBrMY7JNfKyCP ZoPwUvViKhMEGdSJKyhv4SKPDvMRPjSVt1RqDtOYBr KXJdKXujVSMxTPVlOBL9GCPwCEWdWZ8KDlOzOOVxVKQdHpGkTUBlKQVksp5PASLvEGUoJFAbIaKcFDGs ILMgOEyrKMKqPTZxEhw9ETSpLVUrMW5XEmQpXORhEFZ4MAJrMRGhAFSwth1YZTIaGERuYuh2IJRsDWKk YNChLUfzXNEmHIUmChP0BRMmWXQjYU2UKoZgJCRtWY X0KjZbVIHwBAYooo6DNECyPWKgHXObNVVgJXXmCURqFEqbYVDvDGN3BSS6VJPoRPPgYR9WIpIqNRYsID F4EZUdISMiDXXuwv1WGHQnJNXgBxi3XzEzACKgNUUwBKyuAWTeBVS7QcAlQFDoVYBdGD5OHuBmCUIbKF bfTfprJNShNDJtvh0VOJLqVOWlVZQiSOEwGSOpXOLn GRkbNRYxNVG8VAE1QKQaSLAwVJ9LBeWbXQQnBNg7MANxVLAsZEZsue3ZWILwNKVgWQI7UyUnNFWtYXAt UAnnPWTtRGR1ZDAyNZTtTWKqPS6JFnOiWFOhKcQfZPVoGVTcLNAdkj0KKDDuMQSoYNOxElKsPFUfYFHt OVfxZMNfCFJxAWo9WCHjHGRxHL9EKsWxEKQqNvX1NI VyTOWoXVEuas7WOAAhGNMkIlH5YIBvNXYgGGLrZZu1thGftOKbVOn0EA8NU5LkvqGvFffERq8Nk959XG L4ELOyYe1NF4qwAl3wRZObKIXDQv5FTJr6FVU4AKEeYKG5WfM5TaOvHUtrWdL9EfylDoXhURCjCaG+ID toTKe0OKD9WMu7UmR2SAObMKK1FmbnGSPbTWDgALTc JE3dTGCJBt2+RCmtcCMtgJoxYKKPRmAnUkZ2GPblHMHJEm6F ID Date Data Source [id number] 03/14/2021 11:35:44 AM EDT [facility] Name Value Range Interpretation Code Description Data Stephanie rce(s) Supporting Document(s) Nursing Note [facility] HAJOBn8yMsZLIjHb51/WBTlqCVOge7MfJLjnDZr7GJsxSKYdN7AbOBK0lT2uNWG5WOvYWeAiAjOvREFi lbm [file] GMzxWr7RAWSDM2VPLs== ID Date Data Source [id number] 03/14/2021 11:12:00 AM EDT [facility] Exam Number: [id number] Reported By: Maria De Jesus BARAJAS M.D. Signed By: Vaelri BARAJAS M.D. Name Value Range Interpretation Code Description Data Stephanie rce(s) Supporting Document(s) ID Date Data Source [id number] 03/14/2021 10:21:29 AM EDT [facility] Name Value Range Interpretation Code Description Data Stephanie rce(s) Supporting Document(s) H&P [facility] EDMXQu0tViZNJqRt77/WXLxbEFQis3UeLIhkGVf4IDowFMIxV4ThGUZ9yM9tWJO2JIhMWsKxJzKhIIJl lbm [file] qEQsUd1TWFU0QyFILxIrWW7HCYj= ID Date Data Source [id number] 03/14/2021 05:34:50 AM EDT [facility] Name Value Range Interpretation Code Description Data Stephanie rce(s) Supporting Document(s) Nursing Note [facility] TUMCYm4hAlHKEfEa21/NJYeyVNIxx1RhKOesTZn8TMhkORYaU5MrGID7iI4wSQD3VPvQRzBcLcCuQTNx lbm [file] o= ID Date Data Source [id number] 03/14/2021 01:22:47 AM EDT [facility] Name Value Range Interpretation Code Description Data Stephanie rce(s) Supporting Document(s) Nursing Note [facility] VMMZXd0tWcMXMjRf91/AHAseJGLds2VhSZfgDCc9FAilHVEyF9MpTLV0cU1gMJM8ZSrKWxVdDsSjDOYs lbm [file] Ez4OSnO2SKN7xPXjHt3OVmRlSiZYAyLrMG4BWSd= ID Date Data Source [id number] 03/13/2021 10:37:10 PM EDT [facility] Name Value Range Interpretation Code Description Data Stephanie rce(s) Supporting Document(s) Nursing Note [facility] ISBYHu8eIeXXIkKd05/TFZtnMHImw4EeWUlqJQx1WZjbJIMtK0WtTFA7mG6rMAZ9YUiASnIqKmWwUMGr lbm [file] Fe0XQwC3JSL9cDJqLv3VByEpIIEKPcXtLP0OMWi= ID Date Data Source [id number] 03/13/2021 07:24:52 PM EDT [facility] Name Value Range Interpretation Code Description Data Stephanie rce(s) Supporting Document(s) Care Plan [facility] AKGHIu3nSiWYKiEd50/KQApcEXBxk7FlUFrxWJq0YEzsRFAgC8ZaMQF6dA1nDFL9ZPtWOoKdXlFbYWEc lbm [file] tire maker+9D9OT7//+ETOVzfb9ZDfjRsyxYM3sE5Q1k2wtVazHkn+e8sVgLkYWGbtbNi0HHHqJBsb63p2VHuu [file] DQo= ID Date Data Source [id number] 03/13/2021 06:53:54 PM EDT [facility] Name Value Range Interpretation Code Description Data Stephanie rce(s) Supporting Document(s) Nursing Note [facility] PIRZSl5uZxYHBmFs52/VFEtwDJXzl6SsBDtxNWd1YWxzSETbF9TbPYR6xZ6qIGB5QKsDLeBzEvAfLLVj lbm [file] AgICAgICAgICAgICAgICAgICAgICAgICAgICAgICAg ICAgICAgICAgICAgICAgICAgICAgICAgICAgICAgICAgICAgICAgICAgICAgICAgICAgICAgICAgICAg ICAgICAgICANCiAgICAgICAgICAgICAgICAgICAgICAgICAgICAgICAgICAgICAgICAgICAgICAgICAg ICAgICAgICAgICAgICAgICAgICAgICAgICAgICAgIC AgICAgICAgICAgICAgICAgICANCiAgICAgICAgICAgICAgICAgICAgICAgICAgICAgICAgICAgICAgIC AgICAgICAgICAgICAgICAgICAgICAgICAgICAgICAgICAgICAgICAgICAgICAgICAgICAgICAgICAgIC ANCiAgICAgICAgICAgICAgICAgICAgICAgICAgICAg ICAgICAgICAgICAgICAgICAgICAgICAgICAgICAgICAgICAgICAgICAgICAgICAgICAgICAgICAgICAg ICAgICAgICAgICANCiAgICAgICAgICAgICAgICAgICAgICAgICAgICAgICAgICAgICAgICAgICAgICAg ICAgICAgICAgICAgICAgICAgICAgICAgICAgICAgIC AgICAgICAgICAgICAgICAgICAgICANCiAgICAgICAgICAgICAgICAgICAgICAgICAgICAgICAgICAgIC AgICAgICAgICAgICAgICAgICAgICAgICAgICAgICAgICAgICAgICAgICAgICAgICAgICAgICAgICAgIC AgICANCiAgICAgICAgICAgICAgICAgICAgICAgICAg ICAgICAgICAgICAgICAgICAgICAgICAgICAgICAgICAgICAgICAgICAgICAgICAgICAgICAgICAgICAg ICAgICAgICAgICAgICANCiAgICAgICAgICAgICAgICAgICAgICAgICAgICAgICAgICAgICAgICAgICAg ICAgICAgICAgICAgICAgICAgICAgICAgICAgICAgIC AgICAgICAgICAgICAgICAgICAgICAgICANCiAgICAgICAgICAgICAgICAgICAgICAgICAgICAgICAgIC AgICAgICAgICAgICAgICAgICAgICAgICAgICAgICAgICAgICAgICAgICAgICAgICAgICAgICAgICAgIC AgICAgICANCiAgICAgICAgICAgICAgICAgICAgICAg ICAgICAgICAgICAgICAgICAgICAgICAgICAgICAgICAgICAgICAgICAgICAgICAgICAgICAgICAgICAg ICAgICAgICAgICAgICAgICANCjw/pAAcP7vdlKEhowD4Y8gzFm7OAw7ZQX7um9JeUJHwTPgpdhTrKvkG UmDaEFWeRzvLPdh0TAcsBV2AbWWbJ7DqY7FkOArvTK 4BGDXeFXYbkIJtZUFkKZMfJcO2LHMwRSbqCU3LxBGnSIcmBGPaBSIkUO2SFYDdH536ilIoDO2KNp0PTv EkTG8tii6NTjYsFFXcUkkPPym5BYaqKQ5EhZLrcWUuFiMjQLUMGcZqO2ych7JsOhQaJVFSXPleME6Gw6 VudCAxDQo+Bd2GSN9fp2QqJKpuOmHcAL0rcx6IVNfQ SvIdJ7TyzSueRA53tbJwggdeVt66FUCzsXNBl9ItSgBKQ9L8LU8mADHVYUB3WJjuQv0aENYpLKJ3FgK4 QOFSDL1OYBExSHNogNAgXLJpHFWHOF5FDIxsJRP7DyosmcAliHDdSSvsYX4XWUSnraHsLfVmEPPWSDa+ Od9JXT0ca4JcXViiVEYsAM5vdn7HUUhAJuQhC9O0kK DmO0F2JZdlNa1JABQlFEQoJnWrPNKECEbeYQ3YLM3zynW4TS6KnDCtPGLkNAHylJBkFXr8S98xmGTxUJ qyDO7DZMN+Dillon+Jy2FHJXmGLAwPQHgOiTzPPBNKeAkZ8NmQ3XLr7MxD0PpWZ39tHedumLoUKsfUP4JOZ 4pGHHqQVDCRT4EvCDfaS5qtsSxYwQgEJXSXzGtM35u rKPjOPCyJNHvKWJsKq3TQNHwJ7TwkxSjnPreznKuNKTqPKWNMY8ILPnijlNbeXImkAecXW69pGojEI6V Ks7QIlGgTM5zks8WoRRwEy1JLDSsDH7CUPDaXNVoOGEbBUP7DOSsXiBkPBwnRZAxRMPoPUL8SEEyCRQl YL3DNmYgZYXcLFx6SHugANWeMAGlpi7VWHYgGROcLD GeQTTqDJDxOFSiIDovSCWfOMXuPTT5VSPnVZTtVW8QPrGlSJVnCGZcHmrxBPMkEFFkzg3UOOBbIBZrAy DoBvFeHLPoFMBwTTfpGNIsOHXmQmslJVKjWEJiYK1YLpWrTTWtTFK6VUDdGNCxLOMxsm7IMTZcIRSzCc A8FsOuFRGjEDNlGHcpKBWsGBS8EiQ6VYYoMDCrHZ9B LsYhXJImAUV5CdUkGHQxQJKzbx4GBBYvRNBlAZDdNLKlRJNaLPYkTDmnWMBnNZJ7WdL0BYMfWJOwDG6X SeYwQGTpVHu5BZHzPESbQZDxwn2XWNHgMJHgTqj6ZZMvFPBwAJUxOCgpUAFcMNX6UCM3VNExXDFzWQ6Z FtZwHQXtIBrfQrCfICFsBPHjhd9YJBUeBQQrIVZhNf DiFGIdBWIlJOupTINsCCQ2AGLnGDXcDLSfZG6WRoEeUNCtEXz0QzJmXAKcHSQjni5QSFUiZSJcBVg4MC PqRBCmTFOcPJewSTCyIZBaPMA6BSVmGFKsCV2FUqXkUBWpLeF2FSVnXKXtCJGfkr6AWLUnEHDuVBY0TG KxELKoRILhMNe1soLxoEAtAXh6LY7BP6YvfoCrIpDZ Rw0Qt416LKT7VNQeUc8IP3niCw7fITFyBDVQOc3SPUu5XidfDJQuR0U0ZxCtHKLaUBK7MfVkKrC7KWxr NTNlODk+FGehTKY2JpOfMXbzT4F8EcK9BTO3LSSvOZCuX2O9T4M5LI9zYTRWAf4+DQpzdGFydHhyZWYN FaWvNPb7CBwsIWOLTe9R ID Date Data Source [id number] 03/13/2021 05:56:16 PM EDT [facility] Name Value Range Interpretation Code Description Data Stephanie rce(s) Supporting Document(s) Nursing Note [facility] YJAGBr3zVuMQVxUh06/OPWpjKRJqs5DhPUrhCSm3NYnaFXCfL4WmLCG6mS1nDGJ1ETxOYfOxXcDuCVLw lbm [file] NaMCufDUC8A5JrFvR9ExNwGSSmSfV+IM7sAAv+Rt5Pi3WqhzV0cnRuLEfsBEZ7Gf3ZCMZAG1QDOy== ID Date Data Source [id number] 03/13/2021 05:15:24 PM EDT [facility] Name Value Range Interpretation Code Description Data Stephanie rce(s) Supporting Document(s) Nursing Note [facility] LFQKFp7tYxSLAhZc92/PVBocPGWcm4MzIShaHFz8VUieTHYgD8XaKOS4oN0oKJO2MYyTRhHeMsKfLZHe lbm [file] AIS5CAC8OuTuYK0DFo4ZOpW9NLT8iEYxDe4YWjKyHyfMLyPeMZ1XPQi= ID Date Data Source [id number] 03/13/2021 05:01:36 PM EDT [facility] Name Value Range Interpretation Code Description Data Stephanie rce(s) Supporting Document(s) Nursing Note [facility] KQNCGq1jDsDAMgAw50/MMFbtDVDmm1WdVXhjEUw1PTwoKLSzW4AbCPD4dW2uUUR4FRjSJnEdZlFuYLJa lbm [file] ExAV4AQPc= ID Date Data Source [id number] 03/13/2021 02:53:46 PM EDT [facility] Name Value Range Interpretation Code Description Data Stephanie rce(s) Supporting Document(s) Nursing Note [facility] TICZXd4oCvJMBlSa68/IPQwgSZGmp2NgTZtkLRd3DYsdHAGbM0FtQJZ7pW8pXNQ2ZCuZBgXdTcYvJUZs lbm NwOjtWVfIzNFOcZxoRWnCaTEhcXixljHHlIS5LnJU0MXJmR84iIIPbOYMiR5ZyPYF1EHA+Jx9DPPDieA UeCR4FGmqQ2P3Gdem7Jw6hxz2Ygi+pOCfQPVgr4wjdI0YfiiYBgrd4zW1PEMW7Tfb8+Oczh04Gnddlxd V/ngYxopRNfKAQYNCNfqPRMzCm+e+xLOxfOIqD7u/1 s5Agmty007vepP0SCr+H7f4Ug+WJC0WJ2FnI/8mFwt06tqSTNpKzSDImdwzIiC4UEC7Mafs4HziFFGlf F06ncyfq44hST9CeF8yjy0DpdGMAdkf8IZTFkG6EAGwf1jgFp8ndePw8wbDeEs2SV5oW08wefqe6p3Va GKlHUU3lP8gotkrqU7zvpr6HLoPUKD7xrTe67bOgYY ZfBxDnr5pgICkWng+QpeRAWvgNK7cPuDgG+azsCCLWPBHnoFMS9qKOZBMJpnqQsZLmJBCWl0y6fbo3Bt S67TnyyX3yWoHlwh70yJ0/0vPnmRVhrPlZrrAgc4KfsHRBX/MWmU7cqwR0e80DENK0OetM3giziJHpXM eFRpZqx1cjlh3dWE6Hd+i6tmR9oJi3Gwjc6dnhl0Vw O5HLkrqVTZ7g5Iv0fAe8bStZqvgYygI9tJhwf2WvM/P8ejX/+XsUndp//Nec/Dgc/Enx10L1iQyYv8oK NxvUyVdOrMJTLvnSu4LspU7cZ9qVdPy/rJ0yf7nxm6yOlb0Gzczlp5V0jELyS1XvIFb1UYOG+Xdse0Oi nDZ9qgCIQhdXgFZdZHI4I8Ns8K3OvfWfu70OU4+boby [file] ICAgICAgICAgICAgICAgICAgICAgICAgICAgICAgICAgICAgICAgICAgICAgICAgICAgICAgICAgICAg ICAgICAgICAgICAgICAgICAgICANCiAgICAgICAgIC AgICAgICAgICAgICAgICAgICAgICAgICAgICAgICAgICAgICAgICAgICAgICAgICAgICAgICAgICAgIC AgICAgICAgICAgICAgICAgICAgICAgICAgICAgICANCiAgICAgICAgICAgICAgICAgICAgICAgICAgIC AgICAgICAgICAgICAgICAgICAgICAgICAgICAgICAg ICAgICAgICAgICAgICAgICAgICAgICAgICAgICAgICAgICAgICAgICANCiAgICAgICAgICAgICAgICAg ICAgICAgICAgICAgICAgICAgICAgICAgICAgICAgICAgICAgICAgICAgICAgICAgICAgICAgICAgICAg ICAgICAgICAgICAgICAgICAgICAgICANCiAgICAgIC AgICAgICAgICAgICAgICAgICAgICAgICAgICAgICAgICAgICAgICAgICAgICAgICAgICAgICAgICAgIC AgICAgICAgICAgICAgICAgICAgICAgICAgICAgICAgICANCiAgICAgICAgICAgICAgICAgICAgICAgIC AgICAgICAgICAgICAgICAgICAgICAgICAgICAgICAg ICAgICAgICAgICAgICAgICAgICAgICAgICAgICAgICAgICAgICAgICAgICANCiAgICAgICAgICAgICAg ICAgICAgICAgICAgICAgICAgICAgICAgICAgICAgICAgICAgICAgICAgICAgICAgICAgICAgICAgICAg ICAgICAgICAgICAgICAgICAgICAgICAgICANCiAgIC AgICAgICAgICAgICAgICAgICAgICAgICAgICAgICAgICAgICAgICAgICAgICAgICAgICAgICAgICAgIC AgICAgICAgICAgICAgICAgICAgICAgICAgICAgICAgICAgICANCiAgICAgICAgICAgICAgICAgICAgIC AgICAgICAgICAgICAgICAgICAgICAgICAgICAgICAg ICAgICAgICAgICAgICAgICAgICAgICAgICAgICAgICAgICAgICAgICAgICAgICANCiAgICAgICAgICAg ICAgICAgICAgICAgICAgICAgICAgICAgICAgICAgICAgICAgICAgICAgICAgICAgICAgICAgICAgICAg ICAgICAgICAgICAgICAgICAgICAgICAgICAgICANCj w/nMXoQ8sozJIfqeK9S7iaCo5VNj8LCX5fn4AeRROvTCgftrIeDgpDXgWqJGTjEevCTow2LBplXM3IvG PfX9EoY2TcYMbdWE9DOTLdMCJdrATjTANkBFFdGwT3ZLWmJKmwZQ2VsKSdVGuuSAFsOVDlBB4ILKMuO9 31eeSbSX8PRc1CBoPeEP0xyz0EMjXfXWToVypIGbj5 ZOqfNQ8CsCUxwKIgSEAtJIMRQlQdN8wbj0ZrNnHpCINZVOmaXP2Zp6PgjTBuZZc+Zc0UPU6pv3CpPTba DGBlOW1dhk4BKUgXVsSuB0RdfLkfRL05huDxojazEk41AHJlcLJAx0FnNaYGS6Y0BA7xBFJKIPM2EMip Pz2oJEEiSNEhNmE8XILAGA3VYYDpIMSjlQRbTKGgJS CYCB3DEQpkAQL9UrwlenDflRJnKBvjRX5KBSXbgoFjBcTxQUIRSCo+Id2DVO7ey2ZmKXnmBwFuVQ0tin 5YMRpDBwPxH0Z7tADlL0I3PTiyLt2VIKTaABYvAsLjEKVPWTcpQK6YQD2qbuZ6XT4UxGWlEQTvEAZdiB RqNPx2F62gjGLfVOkaZW1YZDR+Dillon+Ln7HGVQjUWYa VXZwRtLvWQVREkLfU8TnW0PKh1TqQ6NkMB09mAkkwjVgWWkuIX2RON1jJZFvAUFNKV8OkGBazD2vgxOr ZDUvWTOAFiLgE05qdCFfOYMuIFFmNHVtJu8HHPDsA4YgwaFxySwrrvHaZWXsMZSRYH2XQQauovAfbVQo lRiyPF24mDcwXV6PSu2FVbKwPF7feb4OeCMkLm9TNI VhRx0MDIRlDQGnFXVwFIN8XSXzBzVgRBpdDQCoVGYwEUS4XABbDFRbUT5HEuDyLYKmWrMjCVVvOIYhJS Tmwa0EHBGkYCUmPcwlNEEfMJMkMUPfSZhaQFAqFFZiHIM2TPDrJIVcUL9IZkEzQDWoXWZzQwRyJHMlFC Yqen4LSOIlSDUjFsTsXeEwUKEeMPKjOBgyXJUdWOI0 Xlj3HSAmVZZdSP7QAiWvOVNnRKA0TTMoYZJyGOUqhl4IKHSiCDHcAZH7MPAwMLBzYVCeGRufMOCrJQO4 NzC7OGUuNZLqVM0HRdPuLEHaWED6IyJtZBJfGCPhoz2GKZItDGRzQvTgHTJaRPKfPGIbNZitJQBtNLK5 DyJ0OJKgHYXuSY8TGtDzVRGfNFb4BsFnGFHwPGKvdy 9FMWDcSSGfOEu8LaFwWIDkMVQoJCyyVIInMJU0ETWeLBUjFLZaPQ3SIuSwZVYwOVsxTzvuUUFoFXSpve 2YMHLgSOTiERFbHOJmUZOoPELoLScvMRStMLPqHmz6XUNxSKZeRN5NWtFkOPRhGxG6BwdxTODfMBKajr 7XYNZsZDHpFLd5IbQiUXZwZVFoAEefBLHxVIKyUBZp NQTzPYQsVA9FUdCmRLCmTgT4LgypBTHvMZAhzl1RMITmVUQpBzZhIgMkVYQnFFCcOCnoCZWjIDLpFAm4 UBSeHFDxJN0URtAfJZVdKuPaYqCcATQiNLBigc1NdQXrlBxiwm5AEJkWJx7KnYixLZZ3QGndZr8qnPVd IiLjQOISTf1JwbOiXWTpXGUEYUvwAMMlHWXbSEJbWP HvXkGhMuLlRyPnMyPtLPUbUCUvALO0VMT1SsW8CPDvAkBuSNPcEGPpZ3OmXeP4PEU9YXAiQOPxHlckUI Y+WI9cIOv+Wd0Uf3BsfiI3dgNyAYclBsW9ST8FKSKEP2QPCe== ID Date Data Source [id number] 03/13/2021 02:24:18 PM EDT [facility] Name Value Range Interpretation Code Description Data Stephanie rce(s) Supporting Document(s) Care Plan [facility] IGSSLs8yEwVZIaVy33/DVFtcIUQix2VqSRoxTMh7EJipIRLzW0SrWIX9qC2yXOA0PJuKRkKoZhJdEROf lbm [file] o+4nkWNCHigLFu6O2ng+bung sewer/HIvLLltdtVtdirlIpEr2+7l6zs61wdkRLCSJCeBxZiQyGFclbLlCmR3l [file] Fitness Technician+fAG2wgQo1SAmqHh6Day9iRqz4l3lF/PmX4jbe9l [file] AgICAgICAgICAgICAgICAgICAgICAgICAgICAgICAg ICAgICAgICAgICAgICAgICAgICAgICAgICAgICAgICAgICAgICAgICAgICANCiAgICAgICAgICAgICAg ICAgICAgICAgICAgICAgICAgICAgICAgICAgICAgICAgICAgICAgICAgICAgICAgICAgICAgICAgICAg ICAgICAgICAgICAgICAgICAgICAgICAgICANCiAgIC AgICAgICAgICAgICAgICAgICAgICAgICAgICAgICAgICAgICAgICAgICAgICAgICAgICAgICAgICAgIC AgICAgICAgICAgICAgICAgICAgICAgICAgICAgICAgICAgICANCiAgICAgICAgICAgICAgICAgICAgIC AgICAgICAgICAgICAgICAgICAgICAgICAgICAgICAg ICAgICAgICAgICAgICAgICAgICAgICAgICAgICAgICAgICAgICAgICAgICAgICANCiAgICAgICAgICAg ICAgICAgICAgICAgICAgICAgICAgICAgICAgICAgICAgICAgICAgICAgICAgICAgICAgICAgICAgICAg ICAgICAgICAgICAgICAgICAgICAgICAgICAgICANCi AgICAgICAgICAgICAgICAgICAgICAgICAgICAgICAgICAgICAgICAgICAgICAgICAgICAgICAgICAgIC AgICAgICAgICAgICAgICAgICAgICAgICAgICAgICAgICAgICAgICANCiAgICAgICAgICAgICAgICAgIC AgICAgICAgICAgICAgICAgICAgICAgICAgICAgICAg ICAgICAgICAgICAgICAgICAgICAgICAgICAgICAgICAgICAgICAgICAgICAgICAgICANCiAgICAgICAg ICAgICAgICAgICAgICAgICAgICAgICAgICAgICAgICAgICAgICAgICAgICAgICAgICAgICAgICAgICAg ICAgICAgICAgICAgICAgICAgICAgICAgICAgICAgIC ANCiAgICAgICAgICAgICAgICAgICAgICAgICAgICAgICAgICAgICAgICAgICAgICAgICAgICAgICAgIC AgICAgICAgICAgICAgICAgICAgICAgICAgICAgICAgICAgICAgICAgICANCiAgICAgICAgICAgICAgIC AgICAgICAgICAgICAgICAgICAgICAgICAgICAgICAg ICAgICAgICAgICAgICAgICAgICAgICAgICAgICAgICAgICAgICAgICAgICAgICAgICAgICANCjw/eHBh B1kizMFhrnC6Z8ngYw9IWc7MRG8da9TqKEZyWBtarhCsXxzTZoPiZMFiDruLNku5KDmlMY6PnDJoO9Nf Q3UqOKvzGC4JJAOxSRIiaYFiIFUyCZXnXeE4ISMkSP dqLR3PxQOkQRhdPXXhPCDoPkUzRZYcDX4GVGXcK623whKtGx8ZTm2IJyVsUJ0qte4PLzucWENmCqiVMy l9WKjvBG9FoZEvdBWoFEZbLQRPTyUcB4nmf3QjKiunFXMMLAijOQ0Xg2AqiVSxNCr+It3WUO8mq5RrGV peBYViZX1odg2TPZzKOcLnV3QdpXfmPKJdduVaLLwu diPawLHEc9ExVdJXI7G5IP1gCHNJTVJ3PYxkPi2zTUWwXWZbNgLgMRXVHV7WWCJmNWFfyQKbMOIgJNSP OF5QFRgdLFY6TvrurpYavEUwRDnaKG6MRHLejjHpEzeqVWGGTUb+Xr0UYK2at2OeYEppGPBhVN8lpl6E MDyIEhFhC3M3kJVmJ3O7WJxmXj9FBNLeMQDnNvEcUF EVVWrlVF8DTF1fqoX0JF2OtKDkPPRqVEOpgCYoXJi4J19utUGfZZqqHS5CNVI+Dillon+Tm2FZFUfSWGfOH DaIcCsCIKIWdNbT3JsW1DXg5FcF4XfBD21cAonkcQyZZzxOV0VZZ1xHVXjYNAYUW6FwPFljN3epcDpOo IrAKUBWeHwP36vgPBhJRSwTHV2DYDxWv3UWHQkQ9Pz cuVvhSgcucZmYWAqCUDDUV6GXOsnpaZnvGTdvQqaOS10yJdlEI6HGj4OZoRkEN2zta8FjNPyRu2IIKKc FR8NDQXtNCVnSJDvVHT4CBWvSiPxKKpyMNBvVZHdRHI1NSVbSTXlGT2UYmZfMIFxXgO5KKbkXJBaQYHp si5XTOEqHOUkATT4XCMaJBZuBTJxLHxiJTXeSPAiTX L7USXoVVFlZF3OGlKmPPZhFSU2UDlaPUQlQSLqhm9VNOHoQQOmEisoGcOkFXAvHOViKCpzTPKhUQH5NI qhIYSiMWOjBP8HNhVbOOJcBRAoANPmHBNhNWJkzy4MZXHkNLIeREV8QRGlIRHkDHAsCHqhNMHrUWV7DI C4LLEkMFHoVZ1VLoOwTKDiIHB5OLGyDEYqHTHmxp6U JKUqTUUrMwAkFHGfWSIeZXNrAZvvRBEyPOX6Rve9LGQzIMWiPQ0MGcRwUTFrHHT9IAAeCBZfUAXfua1R WNTeNYXfTAXaFEFqFVCaRBOwQXqgIWVnLLU6XrH7HAWnWGEtYI6AGzLaNGCjXKw3KNTdQBWaRQDjgk7M SYQdRJDpWJP8ZUMqEONpXZYkFUhlYUNqULZmFdUcYN VbHKYvXI0VDqFaWIGhHuEsAMViRJUdDDBxih8MQYNbFRRnCLO3KRNfTQVrEKLqUGwwTNSgYUXcSRN5AL UnPFHsGG4JKfFrPQPvQuF9GTvuZCPeLTSblf8ESJJiJOIlPfV6CGYlVHZfSNLeRPqyFOPnULOzLMO0JZ FkHWZiLR1JGiMbPAGgMlAuLPPhAAXkQJPmvg7IUCPz MKXqCDp4XDDiXSHmWCSjOWljNDKsSGV4EOQ2YUUbWYThJG0TOjQvAWQqNxB6UVZmXXJlJCQqcr6HiTJo gBvwmg4NFBwLFe5RhSqjRRWwGBgiVd4jrGPiBGYeZGWOJw8WltUlJKAiMUGFJGhgAFFpZOYjSvKmSXdg KoWiA7T1VMk1GJZrJht6FiNkHoq0P2I1CoP4IHVoPW F3NYKjSCPaMOXzJHhiSXHbMvC8PbTuZEDqDiS+HH7lNYb+Iz0Be0HanwF2ixYkFVfsJCNcUG0LYQCUU9 YNCg== ID Date Data Source [id number] 03/13/2021 02:22:43 PM EDT [facility] Name Value Range Interpretation Code Description Data Stephanie rce(s) Supporting Document(s) Nursing Note [facility] JXSPCh4kZfTNWyEn98/XLJasXLRxw0MmVEyrYSh4ZUaqGDRjQ6NnIOY7aP9uZEJ3BMoJJnWcZoJrITJh lbm [file] ID Date Data Source [id number] 03/13/2021 11:15:10 AM EDT [facility] Name Value Range Interpretation Code Description Data Stephanie rce(s) Supporting Document(s) ED Triage Notes [facility] CLHOPt6tJgKYNjIb23/IMXpxYCRuy1DpMSjsSRv1PJdoPSBqW1XwEIJ7iV5bSNM7ILfXOkFlVhYhWYCp lbm [file] AgICAgICAgICAgICAgICAgICAgICAgICAgICAgICAgICAgICAgICAgICAgICAgICAgICAgICAgICAgIC DgUBTmLPRpOSMeCCXrNPHeYMGnUAKoJUOwYSXkCIGnWXZdIJ9QMLNxYGNgFMQoBWYjSEGnOPMmVEHgOK AgICAgICAgICAgICAgICAgICAgICAgICAgICAgICAg RTZtJUTfQNThXXKyKBXmBHZcVRQzVXYgBUQaEDBrNRPcOMNkICUoPKAvWYPxGC5FOKGiUONmEKEkFEJp ICAgICAgICAgICAgICAgICAgICAgICAgICAgICAgICAgICAgICAgICAgICAgICAgICAgICAgICAgICAg VPGnHXZqRDUzRBEsAYTxESFxEZEvTGDsFTXvBJ8QQK AgICAgICAgICAgICAgICAgICAgICAgICAgICAgICAgICAgICAgICAgICAgICAgICAgICAgICAgICAgIC OyQBXxQWRzJCYuTSTkYCFlDDZhRGPdFMSmYFFuCMEiACBxWPPqAI1XGTIpZJHoVYXrOTYbPTJzLEZlLL AgICAgICAgICAgICAgICAgICAgICAgICAgICAgICAg NYMsZQByJVZdPMLkGAYqIKDwLHFgVKHgATIqOINlKYPhJDAeVHTuWEPqHSPiJITrKZ1GOYFmRHOqNKVq ICAgICAgICAgICAgICAgICAgICAgICAgICAgICAgICAgICAgICAgICAgICAgICAgICAgICAgICAgICAg ICAgICAgICAgICAgICAgICAgICAgICAgICAgICAgIA 0KICAgICAgICAgICAgICAgICAgICAgICAgICAgICAgICAgICAgICAgICAgICAgICAgICAgICAgICAgIC AiJBHqKMFyQRVhYTRsGOSyOAJdXCViDGGhAHTwGJNvFGMzVOIqOMAmDS4LGLKgVTCxZKBbSTLkVDMkHC AgICAgICAgICAgICAgICAgICAgICAgICAgICAgICAg YKYzCYXoTSWuYTNgWDDgXOUsRMScQEOlKMIcPXKkUQCqSEDrVIOnEDWlSOUtPUOpPUVdSU1YHLZsXPCq ICAgICAgICAgICAgICAgICAgICAgICAgICAgICAgICAgICAgICAgICAgICAgICAgICAgICAgICAgICAg ICAgICAgICAgICAgICAgICAgICAgICAgICAgICAgIC QxLJ4JLWSjTWFqXNXhTOFfHCUjSIJpHGZhSFJqDNUkUKJcYTRsPPYtSXKaJFLyORHxJNPcEFGnKYQmAK ObKVYvWBKySXBpCJCjKEOzWRAnZCNfAFQnOFVgNRLqLOWpMXHcFYReMRYcQB3QOM61eAGda3B2ERHdOM 0ndyc/By6MLZvyrsKwqBEqQV8EFzUfKO7thx9RIcRj TH3ugq0GDRjSUvEjV0I0cFGiDTYmMGHPTvAhE98wBSulIf95NQngTETxRuGnUVm9Jk3XEqRuB3lbVVWv JfJ1MPIfRqWwKOcuTM1Mv8IlbGRdNCj+Zd4BUV4lm0IqFUgvDnQdXS6qjg4TREuPCtNmG9SbiaH3KCBf ROTvFn3LXVWkIHZrgCNfSxYwGMRITkMeR6NrvC80YA ENCj4+ODzagmPhDrxNKrFzCMDkp6YvNZm4AP0YXZSiJCm7qHGpQPCvRFLqQVpxMP1hwEKcQNS4AUWtnI BxZRTiauM5nL14kSHhOHXJJMI4KAtkDt9zKUKnSXJaXsKsSCCGRE2XXFXqSBSjoDVhLWOxBTGMPC2WCO paBKX9TrvndrDexWTeLHstME9AETKsgeDuKeYaMYLC DQo+Rg2YGK9eg5KuMHjkOQUdWL7cxi4IZEzUKaVlS0S6kPBmH3N8KNycUm0AJSThXBAhTmKyBCYPWRec EZ7FTS7benP1SK8InQLfMXWdOSQsyLVwZCp2A64wvHLrZEwpMK8SOBH+Dillon+Kk3XJWThLNQvNYGbXcBz KAIZSgYqV6NvY9PDz7IzM9CmCJ04gRixocTjVMuvIC 2FPO5dRFZfAPFUVS9LcYNdrR2gizUxNgNpMUUGFtCzB16uhEQnTDMpFZMjPLXcMg6JOAGwD2NbxrEaeJ cogqWaZDJhJDYPOI0RTXdglpAdaAMsrNmzSH12jCrrMM1DBc5TSwRxHW9kxx6AzVVnFw6GRKGyRW2PEE IbYOJvTQRoBVM2MJClGeDwMDslZLPoXPGuJKD3OZPp KGPfCV8TZlTkGEYwORj0CdpyOEWhRBMxkz7GNOSsKGMvWWUdABIiQRFyVOCcUDyjWJZpJZHiIWI5TELt GZRyGP9TTdPiQKNuTHClUFenKRNxWVIniz4ZMJDeHIYmJMGlAkXpXYKhVEQoGKkdPWRlQYTsBZHmLPFa YLKoAX2CQmJuOQIpSYY2BgJsIZKwJLKpab3SGCSxBZ VnUkv1JdOaLFAfINWcMJomYXDhQVWjSWL9FMMeODScZG2QSqVeRQKbTPVsHFZrTGGkHNFmyj8XCVFaUU HjRXY4VZKrPWMaCEGnBMfvDWXmVTP4ZuU1IRJpANWwCH0NBqDaMKPiLFH6VGGdPXRwMRZnkw5ZSQBeNQ LuKqU3JITzHHXrWTDiNIuvUZQoQEZ2Tmm2QQTsHYPo IT9TAiVhLDIbARr8ZRHgRQBaXIWshp7CUFZhNJRyGNK2LpQbOJYdWLQySKjeQRBoLRY6XmghNEKwTFWs QL6RXiGxITXgPFs9TZNzOEDqEUWauj4NAXQxBKHdJBI7DHRoYEMaMUXsCNadNAUtRZPhXcj3NUJhEKGu SU5EXoYsISWlNcV0YsIgMIKvMAGemt5MPAAqVNMsNO twNQOaNRXnXTWxXWb3miKtyIEoXYu4WH3SI5NxcuLuTnKFVr0Hz578DWQ7QCDtZn6MR7gcOg1qYSUjPU FQVq3QXDq1YtnaRHTbHLQuPtHtXTOdH8I6EgQ9ZNS6GLMaGPQ3FyJ+PYh5KCJ0IuGyPYDlCqTqROBhYW vvSDk0UzimBSBuERK5Au1jOOHMSt1+ETndwZNitYqoSKBMWuTdCCN4BYrcLWCSXz7U ID Date Data Source [id number] 03/11/2021 08:16:00 PM EDT [facility] Name Value Range Interpretation Code Description Data Stephanie rce(s) Supporting Document(s) SARS coronavirus 2 RNA [Presence] in Res piratory specimen by CORDELL with probe detection NEGATIVE [facility] This lab was ordered by [facility] a nd reported by [facility]. ID Date Data Source [id number] 03/05/2021 09:30:00 PM EDT [facility] Name Value Range Interpretation Code Description Data Stephanie rce(s) Supporting Document(s) Respiratory specimen severe acute respir atory syndrome coronavirus 2 (SARS-CoV-2) RNA Negative (qualifier value) [facility] reported by . ID Date Data Source [id number] 03/05/2021 10:26:00 PM EDT [facility] First test? UNKNOWNEmployed in [facility] re? UNKNOWNSymptomatic per CDC? UNKNOWNIf yes date of onset? 03/05/21Hospitalized? UNKNOWNICU? UNKNOWNResident in congregated care? ex senior living, [facility] YES? UNKNOWN Name Value Range Interpretation Code Description Data Stephanie rce(s) Supporting Document(s) SARS-CoV-2 RNA Negative Normal (applies to non-numeric r esults) [facility] Negative results should be treated as pr [...] Certificate of Accreditation. Factsheets for healthcare providers: https://www.fda.gov/media/996173/download Factsheets for patients: https://www.fda.gov/media/346696/download The ID NOW Instrument is a rapid molecular in vitro diagnostic test utilizing an isothermal nucleic acid amplification technology intended for the qualitative detection of nucleic acid from the SARS-CoV-2 viral RNA. THIS IS A STATE REPORTABLE COMMUNICABLE DISEASE. Manual entry verified by Aysha Andrade 03/05/21 2225 ID Date Data Source [id number] 03/05/2021 10:15:00 PM EDT [facility] Name Value Range Interpretation Code Description Data Stephanie rce(s) Supporting Document(s) Troponin I 0.000-0.056 Normal (applies to non-numeric resu lts) [facility] ID Date Data Source [id number] 03/05/2021 10:15:00 PM EDT [facility] Name Value Range Interpretation Code Description Data Stephanie rce(s) Supporting Document(s) Acetaminophen 10.0-30.0 Below low normal [facility] ID Date Data Source [id number] 03/05/2021 10:15:00 PM EDT [facility] Name Value Range Interpretation Code Description Data Stephanie rce(s) Supporting Document(s) Magnesium 1.8-2.4 Normal (applies to non-numeric resul ts) [facility] ID Date Data Source [id number] 03/05/2021 10:15:00 PM EDT [facility] Name Value Range Interpretation Code Description Data Stephanie rce(s) Supporting Document(s) Sodium 142 mmol/L 136-145 Normal (applies to non-numeric resul ts) [facility] Potassium 3.5-5.1 Normal (applies to non-numeric resul ts) [facility] Chloride 107 mmol/L 98-107 Normal (applies to non-numeric resul ts) [facility] Carbon Dioxide CO2 21-32 Normal (applies to non-numer ic results) [facility] Anion Gap 5.0-16.0 Normal (applies to non-numeric resul ts) [facility] BUN 17 mg/dL 7-18 Normal (applies to non-numeric results) [facility] Creatinine,Serum 0.7-1.2 Normal (applies to non-numeric results) [facility] GFR >60 Normal (applies to non-numeric results) [facility] Glucose Level 93 mg/dL 60-99 Normal (applies to non-numeric re sults) [facility] Reference range is only applicable when patient is fasting Note the following drug interference: Sulfasalazine Sulfapyridine Can see falsely depressed Can see falsely elevated result with up to 17% results with up to 11% decrease in measurement increase in measurement Recommend patients be collected for this test prior to administration of either drug. Calcium 8.5-10.1 Normal (applies to non-numeric resul ts) [facility] Bilirubin,Total 0.1-1.9 Normal (applies to non-numeric results) [facility] SGOT(AST) 21 U/L 15-37 Normal (applies to non-numeric resul ts) [facility] Note the following drug interference: Sulfasalazine Sulfapyridine Can see falsely depressed Can see falsely elevated result with up to 10% results with up to 10% decrease in measurement increase in measurement Recommend patients be collected for this test prior to administration of either drug. SGPT(ALT) 43 U/L 12-78 Normal (applies to non-numeric resul ts) [facility] Note the following drug interference: Sulfasalazine Sulfapyridine Can see falsely depressed Can see falsely elevated result with up to 29% results with up to 10% decrease in measurement increase in measurement Recommend patients be collected for this test prior to administration of either drug. Alkaline Phosphatase 113 U/L 38-126 Normal (applies to non-num deena results) [facility] can increase Alkaline Phosp le vels up to 2 times the normal adult value. Normal values for children and adolescents are 2 to 3 times the normal adult value. Total Protein 6.0-8.2 Normal (applies to non-numeric re sults) [facility] Albumin Level 3.4-5.0 Normal (applies to non-numeric re sults) [facility] ID Date Data Source [id number] 03/05/2021 10:15:00 PM EDT [facility] Name Value Range Interpretation Code Description Data Stephanie rce(s) Supporting Document(s) Salicylate 2.8-20.0 Below low normal [facility] ID Date Data Source [id number] 03/05/2021 10:14:00 PM EDT [facility] Name Value Range Interpretation Code Description Data Stephanie rce(s) Supporting Document(s) Ethanol Less than 10.0 Normal (applies to non-numeric r esults) [facility] ID Date Data Source [id number] 03/05/2021 09:36:00 PM EDT [facility] Name Value Range Interpretation Code Description Data Stephanie rce(s) Supporting Document(s) White Blood Count 3.5-10.5 Above high normal [facility] Red Blood Count 3.90-5.00 Normal (applies to non-numeric results) [facility] Hemoglobin 12.0-15.5 Normal (applies to non-numeric resul ts) [facility] Hematocrit 34.9-44.5 Normal (applies to non-numeric resul ts) [facility] Mean Corpuscular Volume 81.2-95.1 Normal (applies to non- numeric results) [facility] Mean Corpuscular Hgb 25.6-32.2 Normal (applies to non-num deena results) [facility] Mean Corpuscular Hgb Conc 32.0-36.0 Normal (applies to no n-numeric results) [facility] Red Cell Distribution Width 11.9-15.5 Normal (appli es to non-numeric results) [facility] Platelet Count 258 x10 3/uL 150-450 Normal (applies to non-numeric results) [facility] Mean Platelet Volume 9.4-12.4 Normal (applies to non-num deena results) [facility] Neutrophils% (Auto) 31.0-71.0 Normal (applies to non-nume frank results) [facility] Lymphocytes% (Auto) 20.0-55.0 Normal (applies to non-nume frank results) [facility] Monocytes% (Auto) 4.0-12.0 Normal (applies to non-numeri c results) [facility] Eosinophils% (Auto) 1.0-8.0 Below low normal [facility] Basophils% (Auto) 0.0-2.0 Normal (applies to non-numeri c results) [facility] Immature Granulocytes% (Auto) 0.0-2.0 Normal (alexander lies to non-numeric results) [facility] Neutrophils# (Auto) 1.50-6.20 Above high normal [facility] Lymphocytes# (Auto) 1.20-4.00 Normal (applies to non-nume frank results) [facility] Monocytes# (Auto) 0.00-0.90 Normal (applies to non-numeri c results) [facility] Eosinophils# (Auto) 0.00-0.50 Normal (applies to non-nume frank results) [facility] Basophils# (Auto) 0.00-0.20 Normal (applies to non-numeri c results) [facility] Immature Granulocytes# (Auto) 0.00-7.00 No rmal (applies to non-numeric results) [facility] ID Date Data Source [id number] 03/05/2021 10:00:00 PM [facility] Collected By: Nurse Initials: ayleen wyatt Collected: 1999 Collected By: Nurse Initials: ayleen wyatt Collected: 1999 Collected By: Nurse Initials: ayleen wyatt Collected: 1999 Name Value Range Interpretation Code Description [facility] Supporting Document(s) RBC,Urine None Seen [facility] WBC,Urine None Seen [facility] Squamous Cells,Urine None Seen [facility] Amorphous Sediment,Urine None Seen [facility] Bacteria,Urine None Seen [facility] ital ID Date Data Source [id number] 03/05/2021 10:00:00 PM [facility] Collected By: Nurse Initials: ayleen wyatt Collected: 1999 Collected By: Nurse Initials: ayleen wyatt Collected: 1999 Collected By: Nurse Initials: ayleen wyatt Collected: 1999 Name Value Range Interpretation Code Description Data [facility] rce(s) Supporting Document(s) Color,Urine Colorl-Dk Y Normal (applies to non-numeric res ults) [facility] [place] Clarity,Urine Clear Normal (applies to non-numeric re sults) [facility] [place] Specific [place],Urine 1.005-1.030 [facility] pH,Urine 5.0-8.0 Normal (applies to non-numeric resul ts) [facility] [place] Protein,Urine Negative [facility] Glucose,Urine Negative Normal (applies to non-numeric re sults) [facility] [place] Ketones,Urine Negative Normal (applies to non-numeric re sults) [facility] [place] Blood,Urine Negative Normal (applies to non-numeric resu lts) [facility] [place] Bilirubin,Urine Negative Normal (applies to non-numeric results) [facility] [place] Urobilinogen,Urine 0.2-1.0 Normal (applies to non-numer ic results) [facility] [place] Leukocyte Esterase,Urine Negative Normal (applies to non -numeric results) [facility] [place] Nitrite,Urine Negative Normal (applies to non-numeric re sults) [facility] [place] ID Date Data Source [id number] 03/05/2021 10:00:00 PM EDT [facility] [place] Collected By: Nurse Initials: ayleen wyatt Collected: 1999 Collected By: Nurse Initials: ayleen wyatt Collected: 1999 Collected By: Nurse Initials: ayleen wyatt Collected: 1999 Name Value Range Interpretation Code Description Data Stephanie rce(s) Supporting Document(s) HCG,Ur Negative Normal (applies to non-numeric results) [facility] [place] ID Date Data Source [id number] 03/05/2021 08:25:00 PM EDT [facility] [place] Name Value Range Interpretation Code Description Data Stephanie rce(s) Supporting Document(s) UDS Benzodiazepines Screen Negative Normal (applies to n on-numeric results) [facility] [place] UDS Cocaine Screen Negative Normal (applies to non-numer ic results) [facility] [place] UDS Ampetamine Screen Negative Normal (applies to non-nu meric results) [facility] [place] UDS Cannabinoids Screen Negative Normal (applies to non- numeric results) [facility] [place] UDS Opiates Screen Negative Normal (applies to non-numer ic results) [facility] [place] UDS Barbiturates Screen Negative Normal (applies to non- numeric results) [facility] [place] Threshold Levels Benzodiazepine 200 ng/mL Cocaine 300 ng/mL Amphetamines 1000 ng/mL Cannabinoids (THC) 50 ng/mL Opiates 300 ng/mL Barbiturates 200 ng/mL All positive findings are presumptive and unconfirmed. Confirmation of positive results are performed only at request of provider. Unconfirmed results must not be used for non-medical purposes (i.e. preemployment and legal purposes) ID Date Data Source [id number] 03/04/2021 03:33:00 PM EDT [facility] Exam Number: [id number] Reported By: - JEREMIAH PEOPLES MD Signed By: JEREMIAH PEOPLES MD Name Value Range Interpretation Code Description Data Stephanie rce(s) Supporting Document(s) ID Date Data Source [id number] 03/03/2021 08:53:00 PM EDT [facility] Name Value Range Interpretation Code Description Data Stephanie rce(s) Supporting Document(s) [id number] [employer] XP[employer] XPRESS SARS-CO V-2 REALTIME PCR ASSAY HAS EMERGENCY USE AUTHORIZATION (EUA) FROM THE FDA. [facility] This lab was ordered by [facility] and reported by [facility]. ID Date Data Source [id number] 03/03/2021 02:50:00 AM EDT [facility] Name Value Range Interpretation Code Description Data Stephanie rce(s) Supporting Document(s) Respiratory specimen severe acute respir atory syndrome coronavirus 2 (SARS-CoV-2) RNA Negative (qualifier value) [facility] This lab was ordered by [facility] and reported by . ID Date Data Source [id number] 03/03/2021 03:11:00 AM EDT [facility] First test? UNKNOWNEmployed in healthca re? UNKNOWNSymptomatic per CDC? UNKNOWNHospitalized? UNKNOWNICU? UNKNOWNResident in congregated care? ex senior living, [facility] UNKNOWN? UNKNOWN Name Value Range Interpretation Code Description Data Stephanie rce(s) Supporting Document(s) SARS-CoV-2 RNA Negative Normal (applies to non-numeric r esults) [facility] Negative results should be treated as pr [...] Certificate of Accreditation. Factsheets for healthcare providers: https://www.fda.gov/media/935527/download Factsheets for patients: https://www.fda.gov/media/984109/download The ID NOW Instrument is a rapid molecular in vitro diagnostic test utilizing an isothermal nucleic acid amplification technology intended for the qualitative detection of nucleic acid from the SARS-CoV-2 viral RNA. THIS IS A STATE REPORTABLE COMMUNICABLE DISEASE. Manual entry verified by Marion Thompson 03/03/21310 ID Date Data Source [id number] 03/03/2021 02:26:00 AM EDT [facility] Name Value Range Interpretation Code Description Data Stephanie rce(s) Supporting Document(s) UDS Benzodiazepines Screen Negative Normal (applies to n on-numeric results) [facility] UDS Cocaine Screen Negative Normal (applies to non-numer ic results) [facility] UDS Ampetamine Screen Negative Normal (applies to non-nu meric results) [facility] UDS Cannabinoids Screen Negative Normal (applies to non- numeric results) [facility] UDS Opiates Screen Negative Normal (applies to non-numer ic results) [facility] UDS Barbiturates Screen Negative Normal (applies to non- numeric results) [facility] Threshold Levels Benzodiazepine 200 ng/mL Cocaine 300 ng/mL Amphetamines 1000 ng/mL Cannabinoids (THC) 50 ng/mL Opiates 300 ng/mL Barbiturates 200 ng/mL All positive findings are presumptive and unconfirmed. Confirmation of positive results are performed only at request of provider. Unconfirmed results must not be used for non-medical purposes (i.e. preemployment and legal purposes) ID Date Data Source [id number] 03/03/2021 02:21:00 AM EDT [facility] Collected By: Nurse Initials: [place] Time Collected: 157 Collected By: Nurse Initials: [place] Time Collected: 157 Name Value Range Interpretation Code Description Data Stephanie rce(s) Supporting Document(s) Color,Urine Colorl-Dk Y Normal (applies to non-numeric res ults) [facility] Clarity,Urine Clear Normal (applies to non-numeric re sults) [facility] Specific [place],Urine 1.005-1.030 [facility] pH,Urine 5.0-8.0 Normal (applies to non-numeric resul ts) [facility] Protein,Urine Negative Normal (applies to non-numeric re sults) [facility] Glucose,Urine Negative Normal (applies to non-numeric re sults) [facility] Ketones,Urine Negative Normal (applies to non-numeric re sults) [facility] Blood,Urine Negative Normal (applies to non-numeric resu lts) [facility] Bilirubin,Urine Negative Normal (applies to non-numeric results) [facility] Urobilinogen,Urine 0.2-1.0 Normal (applies to non-numer ic results) [facility] Leukocyte Esterase,Urine Negative Normal (applies to non -numeric results) [facility] Nitrite,Urine Negative Normal (applies to non-numeric re sults) [facility] ID Date Data Source [id number] 03/03/2021 02:21:00 AM EDT [facility] Collected By: Nurse Initials: [place] Time Collected: 157 Collected By: Nurse Initials: [place] Time Collected: 157 Name Value Range Interpretation Code Description Data Stephanie rce(s) Supporting Document(s) HCG,Ur Negative Normal (applies to non-numeric results) [facility] ID Date Data Source [id number] 03/03/2021 02:54:00 AM EDT [facility] Name Value Range Interpretation Code Description Data Stephanie rce(s) Supporting Document(s) D-Dimer,Quant 0.19-0.50 Normal (applies to non-numeric re sults) [facility] The negative predictive value for DVT or [...] on anticoagulant therapy. ID Date Data Source [id number] 03/03/2021 01:55:00 AM [facility] Name Value Range Interpretation Code Description Data Stephanie rce(s) Supporting Document(s) Ethanol Less than 10.0 Normal (applies to non-numeric r esults) [facility] ID Date Data Source [id number] 03/03/2021 01:55:00 AM [facility] Name Value Range Interpretation Code Description Data Stephanie rce(s) Supporting Document(s) Acetaminophen 10.0-30.0 Below low normal [facility] ID Date Data Source [id number] 03/03/2021 01:55:00 AM [facility] Name Value Range Interpretation Code Description Data Stephanie rce(s) Supporting Document(s) Sodium 143 mmol/L 136-145 Normal (applies to non-numeric resul ts) [facility] Potassium 3.5-5.1 Normal (applies to non-numeric resul ts) [facility] Chloride 107 mmol/L 98-107 Normal (applies to non-numeric resul ts) [facility] Carbon Dioxide CO2 21-32 Normal (applies to non-numer ic results) [facility] Anion Gap 5.0-16.0 Normal (applies to non-numeric resul ts) [facility] BUN 20 mg/dL 7-18 Above high normal [facility] Creatinine,Serum 0.7-1.2 Normal (applies to non-numeric results) [facility] GFR >60 Normal (applies to non-numeric results) [facility] Glucose Level 101 mg/dL 60-99 Above high normal [facility] Reference range is only applicable when [...] (applies to non-numeric resul ts) [facility] Bilirubin,Total 0.1-1.9 Normal (applies to non-numeric results) [facility] SGOT(AST) 22 U/L 15-37 Normal (applies to non-numeric resul ts) [facility] Note the following drug interference: Sulfasalazine Sulfapyridine Can see falsely depressed Can see falsely elevated result with up to 10% results with up to 10% decrease in measurement increase in measurement Recommend patients be collected for this test prior to administration of either drug. SGPT(ALT) 44 U/L 12-78 Normal (applies to non-numeric resul ts) [facility] Note the following drug interference: Sulfasalazine Sulfapyridine Can see falsely depressed Can see falsely elevated result with up to 29% results with up to 10% decrease in measurement increase in measurement Recommend patients be collected for this test prior to administration of either drug. Alkaline Phosphatase 116 U/L 38-126 Normal (applies to non-num deena results) [facility] can increase Alkaline Phosp le vels up to 2 times the normal adult value. Normal values for children and adolescents are 2 to 3 times the normal adult value. Total Protein 6.0-8.2 Normal (applies to non-numeric re sults) [facility] Albumin Level 3.4-5.0 Normal (applies to non-numeric re sults) [facility] ID Date Data Source [id number] 03/03/2021 01:55:00 AM EDT [facility] Name Value Range Interpretation Code Description Data Stephanie rce(s) Supporting Document(s) Salicylate 2.8-20.0 Below low normal [facility] ID Date Data Source [id number] 03/03/2021 01:55:00 AM EDT [facility] Name Value Range Interpretation Code Description Data Stephanie rce(s) Supporting Document(s) Magnesium 1.8-2.4 Normal (applies to non-numeric resul ts) [facility] ID Date Data Source [id number] 03/03/2021 01:55:00 AM EDT [facility] Name Value Range Interpretation Code Description Data Stephanie rce(s) Supporting Document(s) Troponin I 0.000-0.056 Normal (applies to non-numeric resu lts) [facility] ID Date Data Source [id number] 03/03/2021 01:19:00 AM EDT [facility] Name Value Range Interpretation Code Description Data Stephanie rce(s) Supporting Document(s) White Blood Count 3.5-10.5 Above high normal [facility] Red Blood Count 3.90-5.00 Normal (applies to non-numeric results) [facility] Hemoglobin 12.0-15.5 Normal (applies to non-numeric resul ts) [facility] Hematocrit 34.9-44.5 Normal (applies to non-numeric resul ts) [facility] Mean Corpuscular Volume 81.2-95.1 Normal (applies to non- numeric results) [facility] Mean Corpuscular Hgb 25.6-32.2 Normal (applies to non-num deena results) [facility] Mean Corpuscular Hgb Conc 32.0-36.0 Normal (applies to no n-numeric results) [facility] Red Cell Distribution Width 11.9-15.5 Normal (appli es to non-numeric results) [facility] Platelet Count 274 x10 3/uL 150-450 Normal (applies to non-numeric results) [facility] Mean Platelet Volume 9.4-12.4 Below low normal [facility] Neutrophils% (Auto) 31.0-71.0 Normal (applies to non-nume frank results) [facility] Lymphocytes% (Auto) 20.0-55.0 Normal (applies to non-nume frank results) [facility] Monocytes% (Auto) 4.0-12.0 Normal (applies to non-numeri c results) [facility] Eosinophils% (Auto) 1.0-8.0 Below low normal [facility] Basophils% (Auto) 0.0-2.0 Normal (applies to non-numeri c results) [facility] Immature Granulocytes% (Auto) 0.0-2.0 Normal (alexander lies to non-numeric results) [facility] Neutrophils# (Auto) 1.50-6.20 Above high normal [facility] Lymphocytes# (Auto) 1.20-4.00 Normal (applies to non-nume frank results) [facility] Monocytes# (Auto) 0.00-0.90 Normal (applies to non-numeri c results) [facility] Eosinophils# (Auto) 0.00-0.50 Normal (applies to non-nume frank results) [facility] Basophils# (Auto) 0.00-0.20 Normal (applies to non-numeri c results) [facility] Immature Granulocytes# (Auto) 0.00-7.00 No rmal (applies to non-numeric results) [facility] ID Date Data Source [id number] 03/02/2021 11:08:00 AM EDT [address] HEALTH CONSULTPATIENT NAME: YARELI HATCH MR#: [id number] PHYSICIAN:AUTHOR: Colleen SMITH,Bogdan DATE: #: ERPATIENT : 00HistoryHistory of Presenting IllnessPatient is 20-year-old female, currently single, lives at [facility], pastpsych history of borderline personality disorder, [...] wanted to be discharged backto [facility]. However upon asking how she is [...] rce(s) Supporting Document(s) ID Date Data Source [id number] 03/02/2021 04:06:00 AM EDT [facility] Name Value Range Interpretation Code Description Data Stephanie rce(s) Supporting Document(s) SALICYLATE < 1.7 mg/dL 0.0-20.0 [facility] ID Date Data Source [id number] 03/02/2021 04:06:00 AM EDT [facility] Name Value Range Interpretation Code Description Data Stephanie rce(s) Supporting Document(s) ACETAMINOPHEN < 2.0 ug/mL 0-30 [facility] ID Date Data Source [id number] 03/02/2021 04:06:00 AM EDT [facility] Name Value Range Interpretation Code Description Data Stephanie rce(s) Supporting Document(s) ETOH NONE DETECTED N [facility] NONE DETECTED ID Date Data Source [id number] 03/02/2021 04:06:00 AM EDT [facility] Name Value Range Interpretation Code Description Data Stephanie rce(s) Supporting Document(s) GLU 120 mg/dL 70-110 H [facility] Patients taking Sulfasalazine may have f alsely depressedGlucose levels. Patients taking Sulfapyridine may havefalsely elevated Glucose levels. Patients should be drawnfor Glucose before the initial administration of eitherdrug. BUN 16 mg/dL 7-23 [facility] CRE 0.685 mg/dL 0.500-1.300 [facility] GFR > 60 mL/min [facility] CHLORIDE 111 mmol/L 99-110 H [facility] NA 141 mmol/L 136-147 [facility] POTASSIUM 3.6 mmol/L 3.5-5.1 [facility] TCO2 18 mmol/L 20-33 [facility] ANION GAP 15.6 10.0-20.0 [facility] CA 8.5 mg/dL 8.3-10.7 [facility] ALKALINE PHOS 118 U/L 45-117 H [facility] TP 7.5 g/dL 6.0-7.8 [facility] ALB 3.7 g/dL 3.5-5.0 [facility] ESRD Dialysis patient Albumin reference range: 2.9-4.4 g/dL GL 3.8 g/dL 2.3-3.5 [facility] A/G 1.0 1.0-2.5 [facility] T. BILIRUBIN 0.2 mg/dL 0.1-1.1 [facility] The Dimension Lyman Total Bilirubin is n ot recommended forpatients undergoing treatment with eltrombopag (Promacta)due to the potential for falsely elevated results. ALTI 43 U/L 6-54 [facility] Patients taking Sulfasalazine and/or Sul fapyridine may havefalsely depressed ALT levels. Patients should be drawn forALT before the initial administration of either drug. AST 21 U/L 6-38 [facility] Patients taking Sulfasalazine and/or Sul fapyridine may havefalsely depressed AST levels. Patients should be drawn forAST before the initial administration of either drug. ID Date Data Source [id number] 03/02/2021 03:12:00 AM EDT [facility] Name Value Range Interpretation Code Description Data Stephanie rce(s) Supporting Document(s) WBC 9.90 x10E3/uL 4.0-10.5 [facility] RBC 4.15 x10E6/uL 4.20-5.40 [facility] Hemoglobin 12.4 g/dL 12.0-16.0 [facility] Hematocrit 37.0 % 37.0-47.0 [facility] MCV 89.2 fL 81.0-99.0 [facility] MCH 29.9 pg 27.0-31.0 [facility] MCHC 33.5 g/dL 32.7-35.6 [facility] RDW 12.4 % 11.5-14.0 [facility] Platelet count 243 x10E3/uL 150-450 N [facility] ital MPV 9.9 fl 6.9-9.5 H [facility] Neutrophils 61.6 % 34-64 [facility] Lymphocytes 29.1 % 25-45 N [facility] Monocytes 7.2 % 1.7-10.6 [facility] Eosinophils 1.3 % 0.4-7.0 [facility] Basophils 0.3 % 0.1-2.0 [facility] Imm. Gran. 0.5 % 0.1-2.0 [facility] Abs. Neutro. 6.10 x10E3/uL 1.2-7.6 [facility] Abs. Lymph. 2.88 x10E3/uL 1.0-3.5 [facility] Abs. [place]. 0.71 x10E3/uL 0.1-1.0 N [facility] l Abs. Eosin. 0.13 x10E3/uL 0.1-0.7 N [facility] Abs. Baso. 0.03 x10E3/uL 0.0-0.1 N [facility] l Abs. Imm. Gran. 0.05 x10E3/uL 0.0-0.1 [facility] spital ANRBC% 0 % 0 [facility] ID Date Data Source [id number] 03/02/2021 03:28:00 AM EDT [facility] Name Value Range Interpretation Code Description Data Stephanie rce(s) Supporting Document(s) PCP VISTA NEG NEGATIVE [facility] MINIMUM LEVEL OF DETECTION IS 25 ng/ml BENZODIAZEPINES NEG NEGATIVE [facility] MINIMUM LEVEL OF DETECTION IS 200 ng/ml COCAINE VISTA NEG NEGATIVE [facility] MINIMUM LEVEL OF DETECTION IS 300 ng/ml AMPHETAMINES NEG NEGATIVE [facility] MINIMUM LEVEL OF DETECTION IS 1000 ng/ml BARBITURATES [facility]G [facility]GATIVE [facility] CUTOFF CONCENTRATION IS 200 ng/ml CANNABINOIDS NEG NEGATIVE [facility] CUTOFF CONCENTRATION IS 50 ng/ml METHADONE VISTA NEG NEGATIVE [facility] al MINIMUM LEVEL OF DETECTION IS 300 ng/ml OPIATE VISTA NEG NEGATIVE [facility] MINIMUM DETECTION LEVEL IS 300 ng/ml ID Date Data Source [id number] 03/02/2021 03:15:00 AM EDT [facility] Name Value Range Interpretation Code Description Data Stephanie rce(s) Supporting Document(s) HCG QUAL URINE Negative Negative [facility] ID Date Data Source [id number] 03/02/2021 03:15:00 AM EDT [facility] Name Value Range Interpretation Code Description Data Stephanie rce(s) Supporting Document(s) URINE COLOR Yellow [facility] UAPR Cloudy [facility] UGLU Negative NEGATIVE [facility] URINE BILIRUBIN Negative NEGATIVE [facility] UKET Trace NEGATIVE [facility] USG 1.028 1.010-1.025 [facility] UBLO Negative NEGATIVE [facility] UpH 5.0 5.0-8.0 [facility] UPRO Negative Negative [facility] UUB 1.0 mg/dL 0.2-1.0 [facility] UNIT Negative Negative [facility] ULEU Negative Negative [facility] ID Date Data Source [id number] 03/02/2021 11:27:00 AM EDT [facility] Physician DocumentationClaxlexy-Naveen Hinkle edical CenterName: Yareli DuvallAge: 20 yrsSex: FemaleDOB: 2000MRN: [id number] Date: 03/02/2021Time: 02:30Account#: [id number] SMITH: NONE, - Per PatientED Physician Nils ArguetaDisposition Summary:03/02/21 11:12Discharge OrderedLocation: Home Self Care afProblem: an ongoing problem afSymptoms: are unchanged afCondition: Stable afDiagnosis- Adjustment disorder, unspecified afFollowup: af- With: Private Physician- When: 1 week- Reason: Recheck today's complaintsDischarge Instructions:- ADJUSTMENT DISORDER af- Discharge Summary Sheet cf9Udexf:- Medication Reconciliation af- Medication Reconciliation Form - 2nd Copy afHPI:02/2202:50 This 20 yrs old White Female presents to ER via Police with lh7skdfvwyruu of Psych Problem.02:50 Associated signs and symptoms: Pertinent negatives: abdominal pain, uu1jsjzh pain, fever, headache, nausea, shortness of breath, [...] denies any other problems or any other complaints..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 ibuprofen 400 [...] Temp 97.7; Pulse Ox 96% ; Weight rh8597.33 kg; Height 5 ft. 7 in. (170.18 cm);11:27 BP 124 / 76; Pulse 88; Resp 20; Temp 98; Pulse Ox 98% on R/A; fbg02:35 Body Mass Index 36.02 (104.33 kg, 170.18 cm) jw5MDM:02:40 Patient medically screened. th406:41 Data reviewed: vital signs, nurses notes, lab test result(s). ED ar0cdxanv: Patient remained stable in the ER. Patient [...] Order name: Medically Cleared for Eval by-Psychosocial, Bindery Helper th4(.PSA); Complete Time: 07:27Dispensed Medications:No medications were administeredSignatures:Dispatcher [employer] Anshul Loving MD MD afHowland, Todd, MD MD [id number] humphrey RN RN [id number] mccallum RN RN kk3 Name Value Range Interpretation Code Description Data Stephanie rce(s) Supporting Document(s) ID Date Data Source [id number] 03/02/2021 11:27:00 AM EDT [facility] terName: Yareli AdamelAge: 20 yrsSex: FemaleDOB: 2000MRN: [id number] Date: 03/02/2021Time: 02:30Account#: [id number] 5APrivate MD: NONE, - Per PatientDiagnosis: Adjustment disorder, unspecifiedPresentation:02/2202:32 Presenting complaint: Patient brought in by [employer] officer Noel Huerta for [address] evaluation for suicidal thoughts. International TravelFever No. Coronavirus Screening: Have you been diagnosed withCOVID-19 in the past 30 days? no [facility] no Flu-like symptoms reported in the last 14 days: no.Have you had close contact with confirmed or suspected COVID-19 case?no Do you live in a setting where a large of amount of people live,such as senior living, family care, alf, etc? no. Have you traveledto a location with widespread or ongoing COVID-19 community spread [facility]? no Have you traveled internationally or hadcontact with someone that has traveled and has been ill in the past 3weeks? no Have you received the COVID vaccine? Yes. CommunicableDisease Screen: Negative for fever>/= 100 degrees Fahrenheit.Communicable disease screen is negative. (-) rash or unusual skinlesion (-) travel/contact with traveler (-) respiratory symptoms.Communication Speaks Nigerien? Yes, is preferred language.02:32 Acuity: Triage 2 jw502:32 Method Of Arrival: Police jw502:34 Acuity Assignment: Triage 2 jq2Flwuxl Assessment:02:34 Sepsis Screening: (1)Signs/symptoms infection Sepsis is not lt1dsnsbtauc. Pain: Denies pain. PSS-3 Now I'm going [...] noted. : No deficits noted. 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 ibuprofen 400 [...] threats or abuse. Denies injuries from another. pv5Myareveuhho screening: No deficits noted. Offer of HIV [...] in no apparent distress at this time. ea3Wqtpwbp is asleep.06:12 Reassessment: Patient appears in no apparent distress at this time. jc8Nrsrcueasred:10:54 SAFE Act Report Not Completed. Intervention: Observation Level 3. qw4Yfjzpw health consult is initiated at 10:10. Referral Information:Evaluation referral is generated by the patient himself / herself.The patient was referred for evaluation because Suicidal Ideation.10:57 Subjective: The patients chief complaint is SI. Patient is a 20 y/o tl1eonuo female who was discharged from the inpatient [...] / Agency: [facility] Walk-In appointment in [place] on Wednesday.. LivingEnvironment:. Patient presents to Emergency [...] of patients status at 11:05, Mental Health GENETICS TEACHER made awareof pt status at 11:05. Disposition: The patient has a safedestination which is Patient is being discharged back to [facility]. DSM-V DX [place] I diagnosis: Adjustment D/O w mixedemotion, conduct. The patient is not a banking services advisor or militarydependent. [place] Suicide Severity Rating Scale: Suicidal IdeationRating 0; Intensity of Ideations Rating 0; Suicidal Behavior Rating 0.Psych:02:37 Subjective: Patient's mood is sad, Delusions are denied, ys1Onawrujfsyblfv are denied Having thoughts of suicide. Denies [...] Temp 97.7; Pulse Ox 96% ; Weight zb6676.33 kg; Height 5 ft. 7 in. (170.18 [...] armband on for positive identification. Placed in qk8lpcq. Bed in low position. Side rails up [...] Disposition: Discharged to home ambulatory. fbg11:27 Condition: :27 Discharge instructions given to patient, Instructed on dischargeinstructions, follow up and referral plans. medication usage.11:27 Discharge Assessment: Patient awake, alert and oriented x 3. Nocognitive and/or functional deficits noted. Patient verbalizedunderstanding of disposition instructions. Patient verbalizedunderstanding of disposition instructions. Patient has no functionaldeficits.11:27 Patient left the ED. fbgSignatures:Vincenzo Luis, JOSE LUIS RN fbgFedoroAnshul casillas MD MD afStickles, Robert, PSA PSA jz5HvrnwvsNils Argueta MD MD co8NitmtFortunato humphrey RN RN ei2RiklgRatna mccallum, JOSE LUIS RN oc7Ugwxyckveff: (The following items were deleted from the chart)11:06 10:54 Referral Information: Evaluation referral is generated by the dt5dasopyw himself / herself. rs2 Name Value Range Interpretation Code Description Data Stephanie rce(s) Supporting Document(s) ID Date Data Source [id number] 03/01/2021 11:36:00 AM EDT [address] [address] CONSULTPATIENT NAME: YARELI HATCH MR#: [id number] PHYSICIAN:AUTHOR: Kary Gray NP DATE: RM#: ERPATIENT : 00HistoryHistory of Presenting IllnessPatient is 20-year-old female, currently lives at [facility], past psychhistory of mood disorder, borderline [...] stated that she has a friend from [place] that she talksand that friend treats her [...] rce(s) Supporting Document(s) ID Date Data Source [id number] 03/01/2021 08:18:00 AM EDT [facility] Name Value Range Interpretation Code Description Data Stephanie rce(s) Supporting Document(s) LCOVID-19, [facility] and reported by [facility]. ID Date Data Source [id number] 03/01/2021 08:55:00 AM EDT [facility] Name Value Range Interpretation Code Description Data Stephanie rce(s) Supporting Document(s) COVID-19, CORDELL NEGATIVE NEGATIVE [facility] Methodology: Isothermal Nucleic Acid Amp lification [...] Emergency Use Authorization. ID Date Data Source [id number] 02/28/2021 10:15:00 PM EDT [facility] Name Value Range Interpretation Code Description Data Stephanie rce(s) Supporting Document(s) PCP VISTA NEG NEGATIVE N [facility] MINIMUM LEVEL OF DETECTION IS 25 ng/ml BENZODIAZEPINES NEG NEGATIVE [facility]IM[facility] LEVEL OF DETECTION IS 200 ng/ml COCAINE VISTA NEG NEGATIVE [facility] MINIMUM LEVEL OF DETECTION IS 300 ng/ml AMPHETAMINES NEG NEGATIVE [facility] al MINIMUM LEVEL OF DETECTION IS 1000 ng/ml BARBITURATES NEG NEGATIVE [facility] CUTOFF CONCENTRATION IS 200 ng/ml CANNABINOIDS NEG NEGATIVE [facility] CUTOFF CONCENTRATION IS 50 ng/ml METHADONE VISTA NEG NEGATIVE [facility] al MINIMUM LEVEL OF DETECTION IS 300 ng/ml OPIATE VISTA NEG NEGATIVE [facility] MINIMUM DETECTION LEVEL IS 300 ng/ml ID Date Data Source [id number] 02/28/2021 09:59:00 PM EDT [facility] Name Value Range Interpretation Code Description Data Stephanie rce(s) Supporting Document(s) URINE COLOR Yellow [facility] UAPR Clear [facility] UGLU Negative NEGATIVE [facility] URINE BILIRUBIN Negative NEGATIVE [facility] UKET Trace NEGATIVE [facility] USG 1.028 1.010-1.025 H [facility] UBLO Negative NEGATIVE [facility] UpH 6.0 5.0-8.0 [facility] UPRO Negative Negative [facility] UUB 1.0 mg/dL 0.2-1.0 [facility] UNIT Negative Negative [facility] ULEU Negative Negative [facility] ID Date Data Source [id number] 02/28/2021 09:59:00 PM EDT [facility] Name Value Range Interpretation Code Description Data Stephanie rce(s) Supporting Document(s) HCG QUAL URINE Negative Negative [facility] ID Date Data Source [id number] 02/28/2021 10:15:00 PM EDT [facility] Name Value Range Interpretation Code Description Data Stephanie rce(s) Supporting Document(s) SALICYLATE < 1.7 mg/dL 0.0-20.0 [facility] ID Date Data Source [id number] 02/28/2021 10:15:00 PM EDT [facility] Name Value Range Interpretation Code Description Data Stephanie rce(s) Supporting Document(s) ACETAMINOPHEN < 2.0 ug/mL 0-30 [facility] ID Date Data Source [id number] 02/28/2021 10:15:00 PM [facility] Name Value Range Interpretation Code Description Data Stephanie rce(s) Supporting Document(s) ETOH NONE DETECTED [facility] NONE DETECTED ID Date Data Source [id number] 02/28/2021 10:15:00 PM EDT [facility] Name Value Range Interpretation Code Description Data Stephanie rce(s) Supporting Document(s) GLU 98 mg/dL 70-110 [facility] Patients taking Sulfasalazine may have f alsely depressedGlucose levels. Patients taking Sulfapyridine may havefalsely elevated Glucose levels. Patients should be drawnfor Glucose before the initial administration of eitherdrug. BUN 14 mg/dL 7-23 [facility] CRE 0.645 mg/dL 0.500-1.300 [facility] GFR > 60 mL/min [facility] CHLORIDE 109 mmol/L 99-110 [facility] NA 140 mmol/L 136-147 [facility] POTASSIUM 3.6 mmol/L 3.5-5.1 [facility] TCO2 22 mmol/L 20-33 [facility] ANION GAP 12.6 10.0-20.0 [facility] CA 8.6 mg/dL 8.3-10.7 [facility] ALKALINE PHOS 114 U/L 45-117 [facility] TP 7.3 g/dL 6.0-7.8 [facility] ALB 3.6 g/dL 3.5-5.0 [facility] ESRD Dialysis patient Albumin reference range: 2.9-4.4 g/dL GL 3.7 g/dL 2.3-3.5 H [facility] A/G 1.0 1.0-2.5 [facility] T. BILIRUBIN 0.3 mg/dL 0.1-1.1 [facility] The Dimension Lyman Total Bilirubin is n ot recommended forpatients undergoing treatment with eltrombopag (Promacta)due to the potential for falsely elevated results. ALTI 44 U/L 6-54 [facility] Patients taking Sulfasalazine and/or Sul fapyridine may havefalsely depressed ALT levels. Patients should be drawn forALT before the initial administration of either drug. AST 18 U/L 6-38 [facility] Patients taking Sulfasalazine and/or Sul fapyridine may havefalsely depressed AST levels. Patients should be drawn forAST before the initial administration of either drug. ID Date Data Source [id number] 02/28/2021 10:03:00 PM EDT [facility] Name Value Range Interpretation Code Description Data Stephanie rce(s) Supporting Document(s) WBC 10.31 x10E3/uL 4.0-10.5 N [facility] l RBC 4.19 x10E6/uL 4.20-5.40 [facility] Hemoglobin 12.3 g/dL 12.0-16.0 [facility] Hematocrit 37.1 % 37.0-47.0 [facility] MCV 88.5 fL 81.0-99.0 [facility] MCH 29.4 pg 27.0-31.0 [facility] MCHC 33.2 g/dL 32.7-35.6 [facility] RDW 12.2 % 11.5-14.0 [facility] Platelet count 274 x10E3/uL 150-450 [facility] ital MPV 9.7 fl 6.9-9.5 [facility] Neutrophils 60.8 % 34-64 [facility] Lymphocytes 29.1 % 25-45 [facility] Monocytes 8.0 % 1.7-10.6 [facility] Eosinophils 1.4 % 0.4-7.0 [facility] Basophils 0.2 % 0.1-2.0 [facility] Imm. Gran. 0.5 % 0.1-2.0 [facility] Abs. Neutro. 6.28 x10E3/uL 1.2-7.6 [facility] Abs. Lymph. 3.00 x10E3/uL 1.0-3.5 [facility] Abs. [place]. 0.82 x10E3/uL 0.1-1.0 N [facility] l Abs. Eosin. 0.14 x10E3/uL 0.1-0.7 [facility] Abs. Baso. 0.02 x10E3/uL 0.0-0.1 [facility] Abs. Imm. Gran. 0.05 x10E3/uL 0.0-0.1 [facility] ANRBC% 0 % 0 N [facility] ID Date Data Source [id number] 03/01/2021 12:39:00 PM EDT [facility] Physician DocumentationClaxlexy-Naveen Hinkle edical CenterName: Yareli DuvallAge: 20 yrsSex: FemaleDOB: 2000MRN: [id number] Date: 02/28/2021Time: 21:08Account#: [id number] 3Private MD: NONE, - Per PatientED Physician Nils ArguetaDisposition Summary:03/01/21 11:57Discharge OrderedLocation: Home Self Care afProblem: an ongoing problem afSymptoms: are unchanged afCondition: Stable afDiagnosis- Bipolar disorder, unspecified afFollowup: af- With: Private Physician- When: 1 week- Reason: Recheck today's complaintsDischarge Instructions:- BIPOLAR DISORDER af- Discharge Summary Sheet xt45Dppqu:- Medication Reconciliation af- Medication Reconciliation Form - 2nd Copy afHPI:02/2021:26 This 20 yrs old White Female presents to ER via Police with wu8yqaccmqqmt of Psych Problem.21:26 Associated signs and symptoms: Pertinent negatives: abdominal pain, mq0sfwgp pain, fever, headache, nausea, shortness of breath, [...] Temp 97.8; Pulse Ox 97% ; Weight uf1908.95 kg; Height 5 ft. 6 in. (167.64 cm);22:59 BP 120 / 64; Pulse 75; Resp 16; Pulse Ox 97% ; jw508/2:37 ml408/2020:15 Body Mass Index 38.41 (107.95 kg, 167.64 cm) jw512:37 refused vitals ml4MDM:02/2021:11 Patient medically screened. th408/2106:53 Data reviewed: vital signs, nurses notes, lab test result(s). ED yw3lzgwni: Patient remained stable in the ER. Patient [...] name: Medically Cleared for Eval by- Psychosocial, Bindery Helper th4(.JAN); Complete Time: 04::17 Order name: EKG [...] mg [acetaminophen 325 mg tablet (2 tabs)] ir3Jjjln: PO;09:45 Drug: Propranolol 10 mg [propranolol 10 mg tablet (1 tabs)] Route: PO;fbg09:46 Drug: sertraline 150 mg [sertraline 50 mg tablet (3 tabs)] Route: PO; fbg09:46 Drug: Topiramate 75 mg [topiramate 25 mg tablet (3 tabs)] Route: PO; fbgSignatures:Dispatcher [employer] Vincenzo Acosta RN RN fbgFedAnshul fuentes MD MD afHowland, Todd, MD MD zw8AnnpsFortunato humphrey, RN RN xh5Gzekgfmx, Geno, RN RN sc3 Name Value Range Interpretation Code Description Data Stephanie rce(s) Supporting Document(s) ID Date Data Source [id number] 03/01/2021 12:39:00 PM EDT [facility] Nurse's NotesClaxton-Wainscott Medical Tootie terName: Yareli DuvallAge: 20 yrsSex: FemaleDOB: 2000MRN: [id number] Date: 02/28/2021Time: 21:08Account#: [id number] MD: NONE, - Per PatientDiagnosis: Bipolar [...] of amount of people live, such as senior living, familycare, alf, etc? no. Have you traveled to a location with widespreador ongoing COVID-19 community spread or outside of [facility]? no Haveyou traveled internationally or had contact with someone that hastraveled and has been ill in the past 3 weeks? no Have you receivedthe COVID vaccine? Yes. Communicable Disease Screen: Negative forfever>/= 100 degrees Fahrenheit. Communicable disease screen isnegative. (-) rash or unusual skin lesion (-) travel/contact withtraveler (-) respiratory symptoms. Communication Speaks Nigerien? Yes,is preferred language.21:09 Acuity: Triage 2 jw521:09 Method Of Arrival: Police jw521:11 Acuity Assignment: Triage 2 wk4Ekclem Assessment:21:14 General: Appears in no apparent distress, Behavior is cooperative. uj4Xjzoxm Screening: (1)Signs/symptoms infection Sepsis is notsuspected. Pain: [...] threats or abuse. Denies injuries from another. bt3Trwyvatxavv screening: No deficits noted. Offer of HIV testing:patient was previously offered screening. Fall Risk None identified.Assessment:22:58 Reassessment: Patient appears in no apparent distress at this time. jw508/2112:36 Reassessment: No changes from previously documented assessment. lg9Bfqluozanstj:02/2022:21 SAFE Act Report Not Completed. Intervention: Observation [...] Pt states that she was inpatient at [facility] from02/21/21-02/25/21. Pt states that she is [facility] to [facility] and she [...] guns. Pt statesthat she has court in [place] on March 18. Pt does not presentwith delusional thoughts. Delusions are denied, Hallucinations aredenied. Patient's mood is depressed, Having thoughts of suicide. Planfor suicide is jumping into trffic. Patient reports history ofanxiety, Bipolar Disorder, Depression, self - mutilation, suicideattempt: many Mental Health Admissions: 02/21-02/25/2021 [facility]: [place] / Agency[place] [...] informed of patient's status at 11:53, ED HBei92oedgxrba of patients status at 11:53. Disposition: Medically clearedfor disposition by Dr Argueta. Psychiatric Consult is performed byphone with Dr Macias The patient has a safe destination which is Ptwill be discharged home per Dr. Macias. Pt can contract for safety anddenies SI/HI. Pt will follow up with [facility]. Pt provided contactinformation for PSA and [employer]. Pt will come to the ED if problemscontinue or worsen. DSM-V DX Belcher I diagnosis: Bipolar D/O, depressedAxis II diagnosis: Deferred Belcher III diagnosis: None. Belcher IVdiagnosis: poor impulse control. The patient is not a service memberor dependent. [place] Suicide Severity Rating Scale:Suicidal Ideation Rating 0; Intensity of Ideations Rating 0; SuicidalBehavior Rating 0.Psych:02/2021:18 Subjective: Patient's mood is irritable, Delusions are denied, ca4Ydehcqqiscghqg are denied Having thoughts of suicide. Plan [...] Temp 97.8; Pulse Ox 97% ; Weight dh1272.95 kg; Height 5 ft. 6 in. (167.64 [...] mg [acetaminophen 325 mg tablet (2 tabs)] fz3Tytgv: PO;09:45 Drug: Propranolol 10 mg [propranolol 10 [...] no functional deficits.12:39 Patient left the ED. ou2Kaevfqubsb:Vincenzo Luis RN RN fbgBrownFortunato ESA ESA jabFedorowicz, Arthur, MD MD afHowland, Todd, MD MD ub1MegokFortunato Mark RN RN rz1NipqIna selby Nicole nhLynch, McKenzie, RN RN ks5IqbgidabGeno santana RN RN sc3 Name Value Range Interpretation Code Description Data Stephanie rce(s) Supporting Document(s) ID Date Data Source [id number] 02/26/2021 08:59:13 AM EDT [facility] Name Value Range Interpretation Code Description Data Stephanie rce(s) Supporting Document(s) Discharge Summary [facility] PYJELz6zWiEJZpEx85/QGMqwGFZtn5XhPIvhDFm4ZCdlMHIeJ1YqUNU1kU2zAWR1EAiTEjPtNcOhWJY6 lbm [file] ICAgICAgICAgICAgICAgICAgICAgICAgICAgICAgIC AgICAgICAgICAgICAgICAgICAgICAgICAgICAgICAgDQogICAgICAgICAgICAgICAgICAgICAgICAgIC AgICAgICAgICAgICAgICAgICAgICAgICAgICAgICAgICAgICAgICAgICAgICAgICAgICAgICAgICAgIC AgICAgICAgICAgICAgDQogICAgICAgICAgICAgICAg ICAgICAgICAgICAgICAgICAgICAgICAgICAgICAgICAgICAgICAgICAgICAgICAgICAgICAgICAgICAg ICAgICAgICAgICAgICAgICAgICAgICAgDQogICAgICAgICAgICAgICAgICAgICAgICAgICAgICAgICAg ICAgICAgICAgICAgICAgICAgICAgICAgICAgICAgIC AgICAgICAgICAgICAgICAgICAgICAgICAgICAgICAgICAgDQogICAgICAgICAgICAgICAgICAgICAgIC AgICAgICAgICAgICAgICAgICAgICAgICAgICAgICAgICAgICAgICAgICAgICAgICAgICAgICAgICAgIC AgICAgICAgICAgICAgICAgDQogICAgICAgICAgICAg ICAgICAgICAgICAgICAgICAgICAgICAgICAgICAgICAgICAgICAgICAgICAgICAgICAgICAgICAgICAg ICAgICAgICAgICAgICAgICAgICAgICAgICAgDQogICAgICAgICAgICAgICAgICAgICAgICAgICAgICAg ICAgICAgICAgICAgICAgICAgICAgICAgICAgICAgIC AgICAgICAgICAgICAgICAgICAgICAgICAgICAgICAgICAgICAgDQogICAgICAgICAgICAgICAgICAgIC AgICAgICAgICAgICAgICAgICAgICAgICAgICAgICAgICAgICAgICAgICAgICAgICAgICAgICAgICAgIC AgICAgICAgICAgICAgICAgICAgDQogICAgICAgICAg ICAgICAgICAgICAgICAgICAgICAgICAgICAgICAgICAgICAgICAgICAgICAgICAgICAgICAgICAgICAg ICAgICAgICAgICAgICAgICAgICAgICAgICAgICAgDQogICAgICAgICAgICAgICAgICAgICAgICAgICAg ICAgICAgICAgICAgICAgICAgICAgICAgICAgICAgIC QtFPNfHXLyHACoHFAiQJBfAGMkRBKaPFFaHWFgDMBwMECpJGHiPWXvTIx4L1nqJHPgCJNiBV9aDTm3Qn 8+VVdQVnWpOYM7uvApoZ6ONX6zm1DaTEzpARMeb7ScVRp9OR7NFODfMDksYP3RPYskdf8OUBRfKMNolJ TKy7eaNlKqZBW9NJWuLpsgLV8HBKNaY0kpelOiRAXq IMVXAZnfUJUKOCapGQRDEGPxWBNiHkFsLuVrFPGqLVJoMWMCOCM9ZAPhCmCoHWUnMXSxQkQfGCZHMZUv YHJyVaQhRKfnCJ0Du3HqaTQnJO8ECw9GChLzOI8uhv2PBGOpVOAiUlgSUvn2RKjjMN3LeSKjlRL7QUWf SDXOWfRjR8dvk0ZyJXWjFLTMWGgrYY7Kr6InpIKlHN o+Bl5VWT3dl0TwJCx6YLAqSG3xwv9BOImIIfYhF1HnqIrpPIIxh3WhKBXzHHWShZ7cFYC7JDV0DMicfN QrkrSjXXEBAUZfxFydjfpvCHNmFUYgVL5hQy9zJICaQBSyJsB9EUUTTN4FZDRzHQZxrJElAAOfVVMFET 9MDNnaHSW7MFRlyuWkqPHvLNdaOW8CWKEyraVfRWEd MCBSDQo+Mc5UMJ8yx7VjQWg3YjAsAU4bfb6WRXxNWiEqO8O7qUOiE7S8ZIdcIm3WTQPlJIMsJAHuQOET WDprJS6JYB7tseU4GW7TuPXwQNGfAINjpSNbVSk0P45qoKLaHWokCH8BSXD+Dillon+Ic6FNFVeLYBoQXDl YcUkZZMWJoDuD8VlJ0YZx5QsZ4AdGG82xAusjpFmMV ctFV2RKD6vQBHvYJZDZU2TsVNosA5ijyA3DWJmZHGGKmImG53yiKStIKWsAFJoILWjPc3DQSHaG0Reuh NuwCjonhRfWHJeEMPZCO4QKLatupEydMYcaDueOF05sSvsCI7KGe4KOyIpGO8eid5QpJFuJv1DZLP0Rk 9NCQCqTKLlCXJwZVX7UNVnTbVxJVktVAOyQVFsSDV6 KEDuNVUiNA0UTmJiELQyBoDfDpjxPAJvJRUttw3GKYCqPYO2Tqw8SrRnPAWqGZUfFBewLWMcIPUcFPA5 XNFzWMDtZR7NSqDaGULnVTZ1JxehSTKtJUXrnu3GHPRwZLZqKCs3WDKrIQXiUXXuFCjvKHQhRBP7Hmq2 LRIhAHUwJD8RSgZuBLXbYXz1FKPjMCBjMYAvkh8RLK NjPWIaPxu2EUYfVYQmUUWsREvuSVBeSGVoWOTbGKIcJHWsZX1FKuYzSZIqJUD6KCyfMACrQVHetv6VNP KnQPEzJAgfGsTfEPSyOXDbIQwvSNIpKBCkTIN6VMLjJFCdZD2AToSmSTWjSqTzDVStUNDxTKEwyv5GGG NoTJRsOvnpXRZiZFIhXHZsDBmfTBTxBKQ5AKS0UHGf JVNfKE6NHgSwYJFxMtf5TVCdDYVwZNQovu0HDHLpGPBiVjm9UYWkMKNfAKElSYpmUYPzSDVtLTabEGKn HUQsZK9YVnWzZLMcDuA6OQPqYQEeVGZpqd2SSCHkWPDcWGQtTOXnEWZqONKoQOsaNKUvBGL0AWS8OCMn BJZkQZ6RUzSxQUHdWjL4IBEoAWEnTURhzj3YQLAlQN VzJiUeQHRrRMUhFJJaCMqeYZSoFXN8AGjvKIDlGZZyPE7TMuEyIPMpYtz0QammRWIuOJGtpk7SPKCyTT VqCvz8VOHeUKBaGQIqTQszNXRgDYT1ULHtSZNsEWBhWH4YIfLvPXBxRrdwNDRaAWSuNIJmmo4ZOODfRY AzOTMwMCAwMDAwMCBuDQowMDAwMDQwMjYwIDAwMDAw YV1PEgXjXKNdMNY5OTxcULZrVVHrjo0QNXWkWDE6TSC0RDWxEVVrOSEvTAdhQEIgUUKgWiEbZVVtUMNl CS1PFbBlNPCnXMG6FNMiWCWpJFYwje8FPGYiIMK6REk8QWXiDDSnWBEjICkcLFIqYDSrGOZdSZHtXDXf DH2ENdGqRUQxNJDjXtIxYENgCUPuhj3UZMIlBFU7Kh E5LqXfMOCtBQOkYPthPPKtQXT2JpLnLBAcWROrLL0WGvXuRSRjYQBaGkBwXDGnPJVhgu7JRQMcLJJ0HF I9DZAwQFEcKMRzMWacHOZiWBA4BBT3MEIeVTVkKZ7HCzYlQMCaRLM4VSQlOWNbFFOcyx9PDMYcWEF0MY ZoNLUlHPDmZNAtBBcuGABzFOCkERYuFPExIGVtKR1U QcPiQKQwBnLrKErpACKaODKufm6FISEfYRI4EQI1VVUwSJFwQNUoNFmrLUGaZGDnAXE6GODsEZXnLH1R XyPpFABdXiX1MRuwWJSgKFVzbs4YDXJzOMQ4OQq8SNYjXKWxIWWlRSbcELEjVIPzLCA8ACMeRJVvLS3L EuVaFHJyVvQ6TzYaQYAvMEEvax5YWIUhCSY8CFAwYc LrRGZpBHVmMFybIVVgUBZ9GTt9PBSpGLZoYC4XJlXwKGOxEzYcLGYrWZXfGODtuo9GwVKobUuebd5GCF oPEd6RaMwhDTI8LNkpEt5aqLL3JlQuUGHDRw9YkmSgLLLvCJNCKHskZIZsTLB7EePmGvIbRZSfMpS4N4 ZdLQvwHfEbIJCtUCWwGqEuPoA9Cop1R2EaAfV0VYJw VPJaTNYcWQHzIfN9QPFcCHEmABV+FP6kTLs+Vo3Dw2QvuyC3jlRaNLn5GVH3Uk2RANGOZ3BGOm== ID Date Data Source [id number] 02/23/2021 04:37:10 PM EDT [facility] Name Value Range Interpretation Code Description Data Stephanie e(s) Supporting Document(s) History and Physical [facility] DEWXHn6sMvFJOlKf49/IKLywCYJkw8FlNMmtQUt7DQnbWSDnW3GzRMI9kR2qYGD5HXoKFaKrYrFpFPJ6 lbm [file] AgICAgICAgICAgICAgICAgICAgICAgICAgICAgICAgICAgICAgICAgICAgICAgICAgICAgICAgICAgIC AgICAgICAgICAgICAgICAgICAgICAgICAgICAgICAg DQogICAgICAgICAgICAgICAgICAgICAgICAgICAgICAgICAgICAgICAgICAgICAgICAgICAgICAgICAg ICAgICAgICAgICAgICAgICAgICAgICAgICAgICAgICAgICAgICAgICAgDQogICAgICAgICAgICAgICAg ICAgICAgICAgICAgICAgICAgICAgICAgICAgICAgIC AgICAgICAgICAgICAgICAgICAgICAgICAgICAgICAgICAgICAgICAgICAgICAgICAgICAgDQogICAgIC AgICAgICAgICAgICAgICAgICAgICAgICAgICAgICAgICAgICAgICAgICAgICAgICAgICAgICAgICAgIC AgICAgICAgICAgICAgICAgICAgICAgICAgICAgICAg ICAgDQogICAgICAgICAgICAgICAgICAgICAgICAgICAgICAgICAgICAgICAgICAgICAgICAgICAgICAg ICAgICAgICAgICAgICAgICAgICAgICAgICAgICAgICAgICAgICAgICAgICAgDQogICAgICAgICAgICAg ICAgICAgICAgICAgICAgICAgICAgICAgICAgICAgIC AgICAgICAgICAgICAgICAgICAgICAgICAgICAgICAgICAgICAgICAgICAgICAgICAgICAgICAgDQogIC AgICAgICAgICAgICAgICAgICAgICAgICAgICAgICAgICAgICAgICAgICAgICAgICAgICAgICAgICAgIC AgICAgICAgICAgICAgICAgICAgICAgICAgICAgICAg ICAgICAgDQogICAgICAgICAgICAgICAgICAgICAgICAgICAgICAgICAgICAgICAgICAgICAgICAgICAg ICAgICAgICAgICAgICAgICAgICAgICAgICAgICAgICAgICAgICAgICAgICAgICAgDQogICAgICAgICAg ICAgICAgICAgICAgICAgICAgICAgICAgICAgICAgIC AgICAgICAgICAgICAgICAgICAgICAgICAgICAgICAgICAgICAgICAgICAgICAgICAgICAgICAgICAgDQ ogICAgICAgICAgICAgICAgICAgICAgICAgICAgICAgICAgICAgICAgICAgICAgICAgICAgICAgICAgIC AgICAgICAgICAgICAgICAgICAgICAgICAgICAgICAg BWFhYGWpPXVyDPl5N5jeQDYuESNhHV7kIEm2Yy9+FLoVQmStITG8kkPbbR1NVB3nw9GlBOetBPKwc0Yr FRt8WD5FWSImYDdvQQ3GHMiark9DHAAfHPBnxIMTu7afXoBuUKM0LODmTkfnKI7EFVStG8glsqPmKSKg YQMKSWmmWKFFKKblIJOZAONzDKTsZiJwQFlgSL1Do2 DxtXU9EWd+Pp3XAM4vy8GsOBriMZGpHD5yce5XUQzPKxEwE3JmapT4IDE7TAQmRt8ZXBDbZYUelFAnRL HcJMZTZjQwB6ErwV45ATGKIj4+NFjdfxNgCnjQKhY0YLHrw7HiJQb0GY3YUUCyZCu7oPPgPPACFBF2UU NiRN5iYASCuVQoSMWtCKMEEMW0XApaZEVcKkUgAFIl OBsmQbVYQMkIVbMgK0Otc4PiIzM2EZBoVaWlHJhiQBQpJhP9HB17aBumHG8YTACiTEZgPT88JNP6VNFn Nw2WPp0KZoVlVS2nva7GOuJiEWQoCznYOqh2MYbkWU2PaIBaE2JmtAYha1rUKeFcL6PURVXbHCWsHg9X AOGwBwGoJCEqDSuiUJ2kQCSuSMKDvAoqrcN1PM9BXA 9ppzUuTJ7IVxKhPe7hWu8HLtYrN1ViJ1DbXWNxYNUJLLveEI6XJImfHN9lRM1Ea6DFlUPefK6glf5XCX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 [facility] RBC 4.16 x10E6/uL 4.20-5.40 [facility] Hemoglobin 12.4 g/dL 12.0-16.0 [facility] Hematocrit 37.6 % 37.0-47.0 [facility] MCV 90.4 fL 81.0-99.0 [facility] MCH 29.8 pg 27.0-31.0 [facility] [facility] MCHC 33.0 g/dL 32.7-35.6 [facility] RDW 12.2 % 11.5-14.0 [facility] Platelet count 227 x10E3/uL 150-450 [facility] ital MPV 9.3 fl 6.9-9.5 [facility] Neutrophils 58.2 % 34-64 [facility] Lymphocytes 32.5 % 25-45 [facility] Monocytes 6.9 % 1.7-10.6 [facility] Eosinophils 1.9 % 0.4-7.0 [facility] Basophils 0.2 % 0.1-2.0 [facility] Imm. Gran. 0.3 % 0.1-2.0 [facility] Abs. Neutro. 5.13 x10E3/uL 1.2-7.6 [facility] Abs. Lymph. 2.87 x10E3/uL 1.0-3.5 [facility] Abs. [place]. 0.61 x10E3/uL 0.1-1.0 [facility] Eosin. 0.17 x10E3/uL 0.1-0.7 [facility] Abs. Baso. 0.02 x10E3/uL 0.0-0.1 [facility] Abs. Imm. Gran. 0.03 x10E3/uL 0.0-0.1 [facility] spital ANRBC% 0 % 0 [facility] ID Date Data Source [id number] 02/19/2021 10:15:00 AM EDT [facility] Physician DocumentationClaxlexy-Naveen Hinkle edical CenterName: Yareli DuvallAge: 20 yrsSex: FemaleDOB: 2000MRN: [id number] Date: 02/19/2021Time: 02:28Account#: [id number] 2Private MD: NONE, - Per PatientED Physician Richie العليposition Summary:02/19/21 09:20Discharge OrderedLocation: Home Self Care seProblem: an ongoing problem seSymptoms: are unchanged seCondition: Stable seDiagnosis- Bipolar disorder, unspecified seFollowup: se- With: Private Physician- When: as instructed- Reason: Recheck today's complaints, Continuance of careDischarge Instructions:- BIPOLAR DISORDER se- Discharge Summary Sheet yg00Uhqkc:- Medication Reconciliation se- Medication Reconciliation Form - 2nd Copy seHPI:02/1104:51 This 20 yrs old White Female presents to ER via Police with oj3gszihccayi of Psych Problem.04:51 The patient presents to the emergency department with PT. BROUGHT TO [facility] BY [facility] FOR MHE. PT. HAS BEEN DEPRESSED & HAS SI WITH PLAN TO SELFHARM OR DROWN SELF, SHE HAS SMALL SUPERFICIAL SKIN BURN LT. FOREARMBY USING A BOTTOM WHEELER TO SELF HARM, SHE ALSO HAS HI TOWARD THE MOTHERWITH NO PLANS. Onset: The symptoms/episode began/occurred just priorto arrival. Past psychiatric history: Prior diagnosis: bipolardisorder. Associated signs and symptoms: The patient has no apparentassociated signs or symptoms. 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 ibuprofen 400 [...] Psych: Positive for depression, homicidal ideation, suicidal ww1qpkijvru, Negative for drug dependence, alcohol dependence, auditoryhallucinations, [...] Temp 97.8; Pulse Ox 98% ; Weight lc3415.33 kg; Height 5 ft. 6 in. (167.64 cm);09:45 BP 131 / 84; Pulse 72; Resp 20; Temp 97.9; Pulse Ox 97% ; Pain 0/10; ef102:34 Body Mass Index 37.12 (104.33 kg, 167.64 cm) [facility]02/1004:54 Data reviewed: vital signs, nurses notes, [...] Order name: Medically Cleared for Eval by-Psychosocial, Bindery Helper na1(.PSA); Complete Time: 05:05Dispensed Medications:No medications were administeredSignatures:Dispatcher [employer] Kylie Fishman MD MD seAl-Hussein, Nabeel, MD MD na1Fortunato Mark RN RN jr1MsifcumuAmi Medrano RN RN hl2Ahmsntjukpt: (The following items were deleted from the chart)02:33 02:31 Home Meds: loratadine 10 mg oral TbDi once daily; jw5 jw5 Name Value Range Interpretation Code Description Data Stephanie rce(s) Supporting Document(s) ID Date Data Source [id number] 02/19/2021 10:15:00 AM EDT [facility] [place] Tootie terName: Yareli AdamelAge: 20 yrsSex: FemaleDOB: 2000MRN: [id number] Date: 02/19/2021Time: 02: 2Private MD: NONE, - Per PatientDiagnosis: Bipolar disorder, unspecifiedPresentation:02/1102:29 Presenting complaint: Patient brought in by [facility] officer Lilly emmanuelfor mental health evaluation Patient reports feeling suicidal andhomicidal patient reports plan for suicide is to self harm or todrown self and homicidal towards mother. International Travel FeverNo. Coronavirus Screening: Have you been diagnosed with COVID-19 inthe past 30 days? no Are you currently on quarantine by [facility]? no Flu-like symptoms reported in the last 14 days: no. Haveyou had close contact with confirmed or suspected COVID-19 case? noDo you live in a setting where a large of amount of people live, suchas senior living, family care, alf, etc? no. Have you traveled to [facility] with widespread or ongoing COVID-19 community spread [facility]? no Have you traveled internationally or hadcontact with someone that has traveled and has been ill in the past 3weeks? no Have you received the COVID vaccine? Yes. CommunicableDisease Screen: Negative for fever>/= 100 degrees Fahrenheit.Communicable disease screen is negative. (-) rash or unusual skinlesion. Communication Speaks Nigerien? Yes, is preferred language.02:29 Acuity: Triage 2 jw502:29 Method Of Arrival: Police jw502:31 Acuity Assignment: Triage 2 de3Yhspyz Assessment:02:33 General: Appears in no apparent distress, Behavior is cooperative. hk6Uenmgy Screening: (1)Signs/symptoms infection Sepsis is notsuspected. Pain: [...] aware ofpositive screen, suicide precautions implemented. 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 ibuprofen 400 [...] threats or abuse. Denies injuries from another. vx6Xmiyajmoxmx screening: No deficits noted. Offer of HIV testing:patient was previously offered screening. Fall Risk None identified.Assessment:07:47 Derm: abrasion noted to left forearm; bacitracin applied. General: er0Vhtzbjq in no apparent distress, obese, Behavior is cooperative.Neuro: Level of Consciousness is awake, alert, obeys commands,Oriented to person, place, time. Respiratory: Airway is patentRespiratory effort is even, unlabored.Psychosocial:05:05 SAFE Act Report Not Completed. Intervention: Observation Level 3. [facility] health consult is initiated at 05:00. Referral [...] two daysago by burning herself with a hiv nurse. Pt has an extensive inpatientmental health history, the last time being admitted was 01/02/21 afteran overdose. [facility] Sadaf. Pt [...] Support: poor The patient currentlylives in a [facility] residence. The patient is single. Detox [...] informed of patient's status at 09:09, ED KKpl72egelctaz of patients status at 09:09. Disposition: Medically clearedfor disposition by Dr Levy. Psychiatric Consult is performed byphone with Dr Dylan Ribeiro NP The patient has a safe destinationwhich is Pt will be discharged home to [facility] per Dylan Ribeiro NP. Ptcan contract for safety and denies SI/HI. Pt will follow up with [facility].Pt provided contact information for [facility] and [facility]. Pt will come tothe ED if problems continue or worsen. DSM-V DX Belcher I diagnosis:Bipolar D/O, mixed Belcher II diagnosis: Deferred Belcher III diagnosis:None. Belcher IV diagnosis: poor impulse control. Abuse/DV Screen: Thepatient / caregiver reports he/she is not in a situation that causesfear, pain or injury. The patient is not a banking services advisor or militarydependent. [place] Suicide Severity Rating Scale: Suicidal IdeationRating 0; Intensity of Ideations Rating 0; Suicidal Behavior Rating 0.Psych:02:35 Subjective: Patient's mood is sad, Delusions are denied, do3Lgsagvtqarudzn are denied Having thoughts of suicide. Plan [...] Temp 97.8; Pulse Ox 98% ; Weight io0581.33 kg; Height 5 ft. 6 in. (167.64 [...] Physician. se09:45 No Physician assisted procedures completed. er7Csnindzjfxle Medications:No medications were administeredOutcome:09:20 Discharge ordered by . se09:45 Disposition: Discharged to home ef109:45 Condition: stable, Provider notified of abnormal vital signs.09:45 Discharge instructions given to patient, Instructed on dischargeinstructions, follow up and referral plans. Demonstratedunderstanding of instructions.09:45 Discharge Assessment: Patient verbalized understanding of dispositioninstructions. Patient has no functional deficits.10:15 Patient left the ED. pc3Obvunnlmmu:Kylie العلي MD MD seAl-Hussein, Nabeel, MD MD na1White, Jason RN RN jx8TrkblghkAmi arthur RN RN gt7HbvcIna Jack Nicole nhCorrections: (The following items were deleted from the chart)02:33 02:31 Home Meds: loratadine 10 mg oral TbDi once daily; jw5 jw505:15 05:06 Subjective: The patients chief complaint is Pt reports to the [facility] with suicidal ideations with a plan [...] days ago by burning herself with a hiv nurse. Pt has anextensive inpatient mental health history. Pt goes to [facility] for outpatient services where she sees Sadaf. Pt doesnot know when her next appointment is. Pt . [place] Name Value Range Interpretation Code Description Data Stephanie rce(s) Supporting Document(s) ID Date Data Source [id number] 02/17/2021 04:09:00 AM EDT [facility] Name Value Range Interpretation Code Description Data Stephanie rce(s) Supporting Document(s) SALICYLATE < 1.7 mg/dL 0.0-20.0 [facility] ID Date Data Source [id number] 02/17/2021 04:09:00 AM EDT [facility] [place] Name Value Range Interpretation Code Description Data Stephanie rce(s) Supporting Document(s) ACETAMINOPHEN < 2.0 ug/mL 0-30 [facility] Data Source [id number] 02/17/2021 04:09:00 AM EDT [facility] [place] Name Value Range Interpretation Code Description Data Stephanie rce(s) Supporting Document(s) ETOH NONE DETECTED [facility] NONE DETECTED ID Date Data Source [id number] 02/17/2021 04:09:00 AM EDT [facility] Name Value Range Interpretation Code Description Data Stephanie rce(s) Supporting Document(s) GLU 102 mg/dL 70-110 [facility] Patients taking Sulfasalazine may have f alsely depressedGlucose levels. Patients taking Sulfapyridine may havefalsely elevated Glucose levels. Patients should be drawnfor Glucose before the initial administration of eitherdrug. BUN 20 mg/dL 7-23 [facility] CRE 0.620 mg/dL 0.500-1.300 [facility] GFR > 60 mL/min [facility] CHLORIDE 111 mmol/L 99-110 [facility] NA 142 mmol/L 136-147 [facility] POTASSIUM 3.5 mmol/L 3.5-5.1 [facility] TCO2 22 mmol/L 20-33 [facility] ANION GAP 12.5 10.0-20.0 [facility] CA 9.0 mg/dL 8.3-10.7 [facility] ALKALINE PHOS 112 U/L 45-117 [facility] TP 7.3 g/dL 6.0-7.8 [facility] ALB 3.8 g/dL 3.5-5.0 [facility] ESRD Dialysis patient Albumin reference range: 2.9-4.4 g/dL GL 3.5 g/dL 2.3-3.5 [facility] A/G 1.1 1.0-2.5 [facility] T. BILIRUBIN 0.3 mg/dL 0.1-1.1 [facility] The Dimension Lyman Total Bilirubin is n ot recommended forpatients undergoing treatment with eltrombopag (Promacta)due to the potential for falsely elevated results. ALTI 43 U/L 6-54 [facility] Patients taking Sulfasalazine and/or Sul fapyridine may havefalsely depressed ALT levels. Patients should be drawn forALT before the initial administration of either drug. AST 19 U/L 6-38 [facility] Patients taking Sulfasalazine and/or Sul fapyridine may havefalsely depressed AST levels. Patients should be drawn forAST before the initial administration of either drug. ID Date Data Source [id number] 02/17/2021 03:47:00 AM EDT [facility] [place] Name Value Range Interpretation Code Description Data Stephanie rce(s) Supporting Document(s) WBC 9.27 x10E3/uL 4.0-10.5 [facility] RBC 4.10 x10E6/uL 4.20-5.40 [facility] Hemoglobin 12.1 g/dL 12.0-16.0 [facility] Hematocrit 36.7 % 37.0-47.0 [facility] MCV 89.5 fL 81.0-99.0 [facility] MCH 29.5 pg 27.0-31.0 [facility] MCHC 33.0 g/dL 32.7-35.6 [facility] RDW 12.4 % 11.5-14.0 [facility] Platelet count 224 x10E3/uL 150-450 [facility] ital MPV 9.3 fl 6.9-9.5 [facility] Neutrophils 61.0 % 34-64 [facility] Lymphocytes 30.1 % 25-45 [facility] Monocytes 6.7 % 1.7-10.6 [facility] Eosinophils 1.6 % 0.4-7.0 [facility] Basophils 0.2 % 0.1-2.0 [facility] Imm. Gran. 0.4 % 0.1-2.0 [facility] Abs. Neutro. 5.65 x10E3/uL 1.2-7.6 [facility] Abs. Lymph. 2.79 x10E3/uL 1.0-3.5 [facility] Abs. [place]. 0.62 x10E3/uL 0.1-1.0 N [facility] l Abs. Eosin. 0.15 x10E3/uL 0.1-0.7 [facility] Abs. Baso. 0.02 x10E3/uL 0.0-0.1 N [facility] l Abs. Imm. Gran. 0.04 x10E3/uL 0.0-0.1 [facility] spital ANRBC% 0 % 0 [facility] ID Date Data Source [id number] 02/17/2021 04:05:00 AM EDT [facility] Name Value Range Interpretation Code Description Data Stephanie rce(s) Supporting Document(s) PCP VISTA NEG NEGATIVE [facility] MINIMUM LEVEL OF DETECTION IS 25 ng/ml BENZODIAZEPINES NEG NEGATIVE [facility] al MINIMUM LEVEL OF DETECTION IS 200 ng/ml COCAINE VISTA NEG NEGATIVE [facility] MINIMUM LEVEL OF DETECTION IS 300 ng/ml AMPHETAMINES NEG NEGATIVE [facility] al MINIMUM LEVEL OF DETECTION IS 1000 ng/ml BARBITURATES NEG NEGATIVE [facility] al CUTOFF CONCENTRATION IS 200 ng/ml CANNABINOIDS NEG NEGATIVE [facility] al CUTOFF CONCENTRATION IS 50 ng/ml METHADONE VISTA NEG NEGATIVE [facility] MINIMUM LEVEL OF DETECTION IS 300 ng/ml OPIATE VISTA NEG NEGATIVE [facility] MINIMUM DETECTION LEVEL IS 300 ng/ml ID Date Data Source [id number] 02/17/2021 03:48:00 AM EDT [facility] Name Value Range Interpretation Code Description Data Stephanie rce(s) Supporting Document(s) URINE COLOR Yellow [facility] UAPR Cloudy [facility] UGLU Negative NEGATIVE [facility] URINE BILIRUBIN Negative NEGATIVE [facility] al UKET Negative NEGATIVE [facility] USG 1.028 1.010-1.025 [facility] UBLO Negative NEGATIVE [facility] UpH 5.0 5.0-8.0 [facility] UPRO Negative Negative [facility] UUB 1.0 mg/dL 0.2-1.0 [facility] UNIT Negative Negative [facility] ULEU Negative Negative [facility] ID Date Data Source [id number] 02/17/2021 01:54:00 PM EDT [facility] Physician DocumentationClaxton-Naveen Hinkle edical CenterName: Yareli AdamelAge: 20 yrsSex: FemaleDOB: 2000MRN: [id number] Date: 02/17/2021Time: 03:10Account#: [id number] 2Private MD:ED Physician Thea Bowman Summary:02/17/21 12:48Discharge [...] presents to ER via Private Vehicle with lc0xrbgqxwklk of Psych Problem.03:44 Patient presents for mental health evaluation stating suicidal yt4dgupczcx. Patient voluntarily called the police and asked [...] 50 mg Oral tab 1 tab prn qpjymbfg92. Latuda 80 mg oral tab 1 tab once daily- PMHx: ADHD; ANXIETY; BIPOLAR DISORDER; Depressive disorder; PsychHx; ptsd;- PSHx: None;- Immunization history: Flu vaccine is up to date.- Social history: Smoking status: Patient uses tobacco products,current every day smoker. ETOH status Denies use of ETOH.- Advance Directives:: None.ROS:03:44 Constitutional: Negative for chills, fever. Eyes: Negative for xd0tvckuphexwj, vision loss. ENT: Negative for difficulty swallowing,difficulty [...] patient appears in no acute distress, alert, sp3blcxe, comfortable, non- diaphoretic, non-toxic, well developed, obese.03:47 [...] Temp 97.6; Pulse Ox 98% on R/A; fo5Uuceyj 104.33 kg (R); Height 5 ft. 6 in. (167.64 cm) (R); Pain 0/10;10:26 BP 119 / 73; Pulse 74; Resp 17; Temp 98.0(O); Pulse Ox 97% on R/A; jlPain 0/10;13:53 BP 130 / 77; Pulse 76; Resp 16; Temp 97.8; Pulse Ox 96% on R/A; fbg03:16 Body Mass Index 37.12 (104.33 kg, 167.64 cm) wn3Pazssny Coma Score:03:47 Eye Response: spontaneous(4). Verbal Response: oriented(5). Motor le5Ibjfdqnu: obeys commands(6). Total: 15.MDM:03:12 Patient medically screened. dk203:50 Data reviewed: nurses notes. ED course: Patient seen and medically ev4jhutqfl, is very talkative speaking to multiple members of staffmaking some inappropriate commentary but generally pleasant, pendingmental health evaluation.04:39 ED course: Laboratory studies reviewed, patient medically cleared vj1smjkkcu mental health evaluation resting comfortably.06:50 Transition of care: After a detail discussion of the patient's case, bk1huic is transferred to Anshul Strauss MD.02/903:35 Order [...] Order name: Medically Cleared for Eval by-Psychosocial, Bindery Helper jeremias2(.PSA); Complete Time: 11:55Dispensed Medications:07:32 Drug: Acetaminophen [...] Derek, MD MD dk2Marcellus, Courtney, RN RN ts9Aoyviyceihj: (The following items were deleted from the chart)10:15 03:16 Home Meds: Latuda 60 mg oral tab 1 tab Twice Daily; cm4 jl10:15 10:12 Home Meds: Zoloft 150MG Oral tab once daily; jl jl Name Value Range Interpretation Code Description Data Stephanie rce(s) Supporting Document(s) ID Date Data Source [id number] 02/17/2021 01:54:00 PM EDT [facility]Cl[facility] terName: Yareli Mejiage: 20 yrsSex: FemaleDOB: 2000MRN: [id number] Date: 02/17/2021Time: 03:10Account#: [id number] 2Pogla MD:Diagnosis: Adjustment disorder, unspecifiedPresentation:02/903:14 Presenting complaint: Patient states: she is having suicidal thoughts cm4and anxiety. Presenting complaint: patient brought in by [facility] Karen. Coronavirus Screening: Have you been diagnosed withCOVID-19 in the past 30 days? no [facility] no Flu-like symptoms reported in the last 14 days: no.Have you had close contact with confirmed or suspected COVID-19 case?no Do you live in a setting where a large of amount of people live,such as senior living, family care, alf, etc? no. Have you traveledto a location with widespread or ongoing COVID-19 community spread [facility]? no Have you traveled internationally or hadcontact with someone that has traveled and has been ill in the past 3weeks? no Have you received the COVID vaccine? Yes. Ebola ScreeningInternational Travel No. Communicable Disease Screen: Negative forfever>/= 100 degrees Fahrenheit. Communicable disease screen isnegative. (-) rash or unusual skin lesion (-) travel/contact withtraveler (-) respiratory symptoms. Communication Speaks Nigerien? Yes,is preferred language.03:14 Acuity: Triage 2 cm403:14 Method Of Arrival: Private Vehicle cm403:15 Acuity Assignment: Triage 2 rj2Qxostt Assessment:03:15 General: Appears in no apparent distress, Behavior is cooperative. kg3Bdslzk Screening: (1)Signs/symptoms infection No. Pain: Denies pain.PSS-3 Now I'm going to ask you some questions that we ask everyonetreated here, no matter what problem they are here for. [facility] is [facility] and it helps us to [...] 50 mg Oral tab 1 tab prn fhcezgao14. Latuda 80 mg oral tab 1 tab once daily- PMHx: ADHD; ANXIETY; BIPOLAR DISORDER; Depressive disorder; PsychHx; ptsd;- PSHx: None;- Immunization history: Flu vaccine is up to date.- Social history: Smoking status: Patient uses tobacco products,current every day smoker. ETOH status Denies use of ETOH.- Advance Directives:: None.Screenin:17 Abuse screen: Denies threats or abuse. Denies injuries from another. jw9Atxilybyoti screening: No deficits noted. Offer of HIV [...] Report Not Completed. Intervention: Observation Level 3. [facility] health consult is initiated at 11:45. [...] to go to talk to [facility] staff with theseconcerns. Pt states that [...] PT also expresses having anappointment with the [facility] on the as well. Pt describes [...] several psychiatric admissions, ptwas [facility] CurrentOutpatient Mental Health Services: [facility]. Living Environment: Family /Home Support: Good The patient currently lives in a [facility] residence.The patient is single.12:26 Patient presents [...] will be discharged home to [facility]. Pt can [facility]. Pt denies SI/HI. Pt will continue treatment through [facility] andupcoming appointments will be verified and expedited as needed. [facility] and has beeninstructed to return to the nearest ED should problems continue orworsen.12:34 DSM-V DX Belcher I diagnosis: Adjustment D/O Unspecified Belcher II kfdiagnosis: Deferred Belcher III diagnosis: None. Belcher IV diagnosis: poorcoping. [place] Suicide Severity Rating Scale: Suicidal IdeationRating 3; Intensity of Ideations Rating 13; Suicidal Behavior Rating1.Psych:03:18 Subjective: Delusions are denied, Hallucinations are denied Having wc1btelnlky of suicide. Plan for suicide is to drown herself. Objective:Patient is cooperative, Speech is normal, Affect is appropriate.13:54 Interventions: Observation Level Level 2. fbgVital Signs:03:16 BP 117 / 96; Pulse 76; Resp 18; Temp 97.6; Pulse Ox 98% on R/A; tt4Icudnx 104.33 kg (R); Height 5 ft. 6 in. (167.64 cm) (R); Pain 0/10;10:26 BP 119 / 73; Pulse 74; Resp 17; Temp 98.0(O); Pulse Ox 97% on R/A; jlPain 0/10;13:53 BP 130 / 77; Pulse 76; Resp 16; Temp 97.8; Pulse Ox 96% on R/A; fbg03:16 Body Mass Index 37.12 (104.33 kg, 167.64 cm) ty3Spnfpnx Coma Score:03:47 Eye Response: spontaneous(4). Verbal Response: oriented(5). Motor cd9Gjtamboq: obeys commands(6). Total: 15.ED Course:03:11 Patient arrived in ED. cm403:12 Anoop Bowman MD is Attending Physician. dk203:15 Triage completed. cm403:18 Patient has correct armband on for positive identification. Placed in el4plfg. Bed in low position. Verbal reassurance given. [...] Disposition: Discharged to home ambulatory. fbg13:53 Condition: rtiluwxt70:53 Discharge instructions given to patient, Instructed on [...] MD MD dk2Kelly, Krista, RN JOSE LUIS nf5HhyydkpnfWendy Severino, RN JOSE LUIS xb9BjfzokMarilu walters, QUIN QUIN sn1Jcexehglidy: (The following items were deleted from the [...] rce(s) Supporting Document(s) ID Date Data Source [id number] 02/15/2021 09:17:00 PM EDT [facility] Name Value Range Interpretation Code Description Data Stephanie rce(s) Supporting Document(s) SALICYLATE < 1.7 mg/dL 0.0-20.0 [facility] ID Date Data Source [id number] 02/15/2021 09:17:00 PM EDT [facility] [place] Name Value Range Interpretation Code Description Data Stephanie rce(s) Supporting Document(s) ETOH NONE DETECTED [facility] NONE DETECTED ID Date Data Source [id number] 02/15/2021 09:17:00 PM EDT [facility] Name Value Range Interpretation Code Description Data Stephanie rce(s) Supporting Document(s) ACETAMINOPHEN < 2.0 ug/mL 0-30 [facility] Data Source [id number] 02/15/2021 09:17:00 PM EDT [facility] Name Value Range Interpretation Code Description Data Stephanie rce(s) Supporting Document(s) GLU 91 mg/dL 70-110 [facility] Patients taking Sulfasalazine may have f alsely depressedGlucose levels. Patients taking Sulfapyridine may havefalsely elevated Glucose levels. Patients should be drawnfor Glucose before the initial administration of eitherdrug. BUN 17 mg/dL 7-23 [facility] CRE 0.697 mg/dL 0.500-1.300 [facility] GFR > 60 mL/min [facility] [facility] CHLORIDE 110 mmol/L 99-110 [facility] NA 144 mmol/L 136-147 [facility] POTASSIUM 4.2 mmol/L 3.5-5.1 [facility] TCO2 26 mmol/L 20-33 [facility] ANION GAP 12.2 10.0-20.0 [facility] CA 8.8 mg/dL 8.3-10.7 [facility] ALKALINE PHOS 124 U/L 45-117 [facility] TP 7.3 g/dL 6.0-7.8 [facility] ALB 3.8 g/dL 3.5-5.0 [facility] ESRD Dialysis patient Albumin reference range: 2.9-4.4 g/dL GL 3.5 g/dL 2.3-3.5 [facility] A/G 1.1 1.0-2.5 [facility] T. BILIRUBIN 0.3 mg/dL 0.1-1.1 [facility] The Dimension Lyman Total Bilirubin is n ot recommended forpatients undergoing treatment with eltrombopag (Promacta)due to the potential for falsely elevated results. ALTI 48 U/L 6-54 [facility] Patients taking Sulfasalazine and/or Sul fapyridine may havefalsely depressed ALT levels. Patients should be drawn forALT before the initial administration of either drug. AST 25 U/L 6-38 [facility] Patients taking Sulfasalazine and/or Sul fapyridine may havefalsely depressed AST levels. Patients should be drawn forAST before the initial administration of either drug. ID Date Data Source [id number] 02/15/2021 09:00:00 PM EDT [facility] Name Value Range Interpretation Code Description Data Stephanie rce(s) Supporting Document(s) WBC 11.28 x10E3/uL 4.0-10.5 [facility] RBC 4.17 x10E6/uL 4.20-5.40 [facility] Hemoglobin 12.4 g/dL 12.0-16.0 [facility] Hematocrit 37.9 % 37.0-47.0 [facility] MCV 90.9 fL 81.0-99.0 [facility] MCH 29.7 pg 27.0-31.0 [facility] MCHC 32.7 g/dL 32.7-35.6 [facility] RDW 12.4 % 11.5-14.0 [facility] Platelet count 258 x10E3/uL 150-450 [facility] ital MPV 9.8 fl 6.9-9.5 [facility] Neutrophils 56.1 % 34-64 [facility] Lymphocytes 33.3 % 25-45 [facility] Monocytes 8.0 % 1.7-10.6 [facility] Eosinophils 1.7 % 0.4-7.0 [facility] Basophils 0.5 % 0.1-2.0 [facility] Imm. Gran. 0.4 % 0.1-2.0 [facility] Abs. Neutro. 6.32 x10E3/uL 1.2-7.6 [facility] [place] Abs. Lymph. 3.76 x10E3/uL 1.0-3.5 [facility] Abs. [place]. 0.90 x10E3/uL 0.1-1.0 [facility] Abs. Eosin. 0.19 x10E3/uL 0.1-0.7 [facility] Abs. Baso. 0.06 x10E3/uL 0.0-0.1 N [facility] l Abs. Imm. Gran. 0.05 x10E3/uL 0.0-0.1 [facility] spital ANRBC% 0 % 0 [facility] ID Date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 12/10/20 at 1814DATE SIGNED: 12/10/20 Electronically SignedTIME SIGNED: 1817 BROOKLYN ONEILL MD Name Value Range Interpretation Code Description Data Stephanie rce(s) Supporting Document(s) ID Date Data Source [id number] 12/06/2020 02:20:00 PM EDT [address] HEALTH PROGRESS NOTEPATIENT NAME: YARELI HATCH CATSALVADOR PHYSICIAN: BROOKLYN ONEILL MDAUTHOR: Surendra SMITH,P.ADM. DATE: 10/31/20 MR#: [id number] NOTE DATE: 12/06/20 RM#: 310EVALUATION TIME: 1421 is 20-year-old female, currently single, past psych historyof bipolar disorder, poor impulse control and borderline personality disorderChief complaint concern about her ability to maintain safety and possiblesuicidal thoughtsEvents Since Last EntryYareli was seen today along with the college scouting coordinator, Gloria, and a PAstudent from [facility]. There is no improvement in her. [...] working on a plan to meet with [facility] and [place] to findappropriate place and options. Unfortunately, many supportive housing optionsare refusing to take her because of her past history with them.Portions of this section were scribed by Shell Ariza on 12/06/20 at 1457DATE SIGNED: 12/06/20 Electronically SignedTIME SIGNED: 1505 BROOKLYN ONEILL MD Name Value Range Interpretation Code Description Data Stephanie rce(s) Supporting Document(s) ID Date Data Source [id number] 12/05/2020 03:10:00 PM EDT [address] HEALTH PROGRESS NOTEPATIENT NAME: YARELI HATCH PHYSICIAN: BROOKLYN ONEILL MDAUTHOR: Surendra SMITH,P.ADM. DATE: 10/31/20 MR#: [id number] NOTE DATE: 12/05/20 RM#: 310EVALUATION TIME: 151 is 20-year-old female, currently single, past psych historyof bipolar disorder, poor impulse control and borderline personality disorderChief complaint concern about her ability to maintain safety and possiblesuicidal thoughtsEvents Since Last EntryMickenjiala was seen today along with the college scouting coordinator, Gloria. Patientstates she had bad dream [...] not save for discharge. Her meeting with [facility] hasbeen postponed until next week. At [...] rce(s) Supporting Document(s) ID Date Data Source [id number] 12/04/2020 03:07:00 PM EDT [place] [id number] HEALTH PROGRESS NOTEPATIENT NAME: JELENA HATCHKAYLA CATTENGIOVANNY PHYSICIAN: BROOKLYN ONEILL MDAUTHOR: Surendra SMITH,P.ADM. DATE: 10/31/20 MR#: [id number] NOTE DATE: 12/04/20 RM#: 310EVALUATION TIME: 1508 is 20-year-old female, currently single, past psych historyof bipolar disorder, poor impulse control and borderline personality disorderChief complaint concern about her ability to maintain safety and possiblesuicidal thoughtsEvents Since Last EntryYareli was seen today along with the college scouting coordinator, Gloria, and a PAstudent from [facility]. She refused to see me today. [...] NotesPlan:We are still planning on meeting with [facility] regarding her.Portions of this section were scribed by Shell Ariza on 12/04/20 at 1528DATE SIGNED: 12/04/20 Electronically SignedTIME SIGNED: 1531 BROOKLYN ONEILL MD Name Value Range Interpretation Code Description Data Stephanie rce(s) Supporting Document(s) ID Date Data Source [id number] 12/03/2020 01:41:00 PM EDT [address] HEALTH PROGRESS NOTEPATIENT NAME: MAMIEYARELI PHYSICIAN: BROOKLYN ONEILL MDAUTHOR: Surendra SMITH,P.ADM. DATE: 10/31/20 MR#: [id number] NOTE DATE: 12/03/20 RM#: 310EVALUATION TIME: 1346 is 20-year-old female, currently single, past psych historyof bipolar disorder, poor impulse control and borderline personality disorderChief complaint concern about her ability to maintain safety and possiblesuicidal thoughtsEvents Since Last EntryYareli was seen today along with the college scouting coordinator, Gloria. She isvery angry and agitated. [...] rce(s) Supporting Document(s) ID Date Data Source [id number] 12/03/2020 02:56:00 PM EDT [address] HEALTH PROGRESS NOTEPATIENT NAME: MAMIEYARELIZOIE YA PHYSICIAN: BROOKLYN ONEILL MDAUTHOR: Surendra SMITH,P.ADM. DATE: 10/31/20 MR#: [id number] NOTE DATE: 12/02/20 RM#: 310EVALUATION TIME: 1457 is 20-year-old female, currently single, past psych historyof bipolar disorder, poor impulse control and borderline personality disorderChief complaint concern about her ability to maintain safety and possiblesuicidal thoughtsEvents Since Last EntryYareli Was seen today along with the college scouting coordinator, Gloria, and a PAstudent from [facility]. She was in better mood. She [...] meeting schedule for her to meet with [facility] as well as [place] Hoganregarding her as the placement continues to be a problem.Portions of this section were scribed by Shell Ariza on 12/03/20 at 1456DATE SIGNED: 12/04/20 Electronically SignedTIME SIGNED: 1533 BROOKLYN ONEILL MD Name Value Range Interpretation Code Description Data Stephanie rce(s) Supporting Document(s) ID Date Data Source [id number] 11/29/2020 04:02:00 PM EDT [place] [id number] HEALTH PROGRESS NOTEPATIENT NAME: YARELI HATCH CATTENGIOVANNY PHYSICIAN: BROOKLYN ONEILL MDAUTHOR: Surendra SMITH,P.ADM. DATE: 10/31/20 MR#: [id number] NOTE DATE: 11/29/20 RM#: 310EVALUATION TIME: 1602 is 20-year-old female, currently single, past psych historyof bipolar disorder, poor impulse control and borderline personality disorderChief complaint concern about her ability to maintain safety and possiblesuicidal thoughtsEvents Since Last EntryYareli was seen today along with the college scouting coordinator, Gloria. She didnot allow the students [...] rce(s) Supporting Document(s) ID Date Data Source [id number] 11/28/2020 04:08:00 PM EDT [facility] [place] [id number] HEALTH PROGRESS NOTEPATIENT NAME: YARELI HATCH CATTENDING PHYSICIAN: BROOKLYN ONEILL MDAUTHOR: Surendra SMITH,P.ADM. DATE: 10/31/20 MR#: [id number] NOTE DATE: 11/28/20 RM#: 310EVALUATION TIME: 1624 is 20-year-old female, currently single, past psych historyof bipolar disorder, poor impulse control and borderline personality disorderChief complaint concern about her ability to maintain safety and possiblesuicidal thoughtsEvents Since Last EntryYareli was seen today along with the college scouting coordinator, Gloria, she didnot allow the student [...] and [place] to arrange a meeting with [facility] to discuss aboutany other option available for her. patient has refused for any medicationchanges.Portions of this section were scribed by Shell Ariza on 11/28/20 at 1622DATE SIGNED: 11/28/20 Electronically SignedTIME SIGNED: 1625 BROOKLYN ONEILL MD Name Value Range Interpretation Code Description Data Stephanie rce(s) Supporting Document(s) ID Date Data Source [id number] 11/27/2020 03:38:00 PM EDT [address] PROGRESS NOTEPATIENT NAME: YARELI HATCH CATSALVADOR PHYSICIAN: BROOKLYN ONEILL MDAUTHOR: Surendra SMITH,P.ADM. DATE: 10/31/20 MR#: [id number] NOTE DATE: 11/27/20 RM#: 310EVALUATION TIME: 1539 is 20-year-old female, currently single, past psych historyof bipolar disorder, poor impulse control and borderline personality disorderChief complaint concern about her ability to maintain safety and possiblesuicidal thoughtsEvents Since Last EntryYareli was seen today along with the college scouting coordinator, Gloria, and a PAstudent from [facility]. She is doing well. I was [...] insists thatI need to refer her to [facility]. But my concern is such things [...] rce(s) Supporting Document(s) ID Date Data Source [id number] 11/26/2020 02:11:00 PM EDT [address] HEALTH PROGRESS NOTEPATIENT NAME: YARELI HATCH PHYSICIAN: BROOKLYN ONEILL MDAUTHOR: Surendra SMITH,P.ADM. DATE: 10/31/20 MR#: [id number] NOTE DATE: 11/26/20 RM#: 310EVALUATION TIME: 1411 is 20-year-old female, currently single, past psych historyof bipolar disorder, poor impulse control and borderline personality disorderChief complaint concern about her ability to maintain safety and possiblesuicidal thoughtsEvents Since Last EntryYareli was seen today along with the college scouting coordinator, Gloria, and a PAstudent from [facility]. She was irritated and angry today. [...] will be making SPOA referrals to other replaced by [facility] also. Yareli continued to express her anger, [...] tomorrow, to do an intake for af[facility] for her. Will also consider increasing her Zyprexa.Portions of this section were scribed by Shell Ariza on 11/26/20 at 1503DATE SIGNED: 11/26/20 Electronically SignedTIME SIGNED: 1507 BROOKLYN ONEILL MD Name Value Range Interpretation Code Description Data Stephanie rce(s) Supporting Document(s) ID Date Data Source [id number] 11/25/2020 02:44:00 PM EDT [place] [facility] [place] [address]UD HEALTH PROGRESS NOTEPATIENT NAME: YARELI HATCH CATTENGIOVANNY PHYSICIAN: BROOKLYN ONEILL MDAUTHOR: Surendra SMITH,P.ADM. DATE: 10/31/20 MR#: [id number] NOTE DATE: 11/25/20 RM#: 310EVALUATION TIME: 1444 is 20-year-old female, currently single, past psych historyof bipolar disorder, poor impulse control and borderline personality disorderChief complaint concern about her ability to maintain safety and possiblesuicidal thoughtsEvents Since Last EntryYareli was seen today along with the college scouting coordinator, Gloria, and a PAstudent from [facility]. She is doing the same. She does not show anysignificant improvement. Patient was informed that we are applying for [facility] for family care. I was informed [...] she has a history of being in [facility] in her childhood.Portions of this section were [...] is making referral to Parul in multiple [facility] for [place]ie[place].Portions of this section were scribed by Shell Ariza on 11/25/20 at 1926DATE SIGNED: 11/25/20 Electronically SignedTIME SIGNED: 1934 BROOKLYN ONEILL MD Name Value Range Interpretation Code Description Data Stephanie rce(s) Supporting Document(s) ID Date Data Source [id number] 11/22/2020 10:16:00 AM EDT [address] HEALTH PROGRESS NOTEPATIENT NAME: YARELI HATCH PHYSICIAN: BROOKLYN ONEILL MDAUTHOR: Colleen SMITH,DhruvADM. DATE: 10/31/20 MR#: [id number] NOTE DATE: 11/22/20 RM#: 310EVALUATION TIME: 1018 [...] to go and she might go to [facility] down the road as well.Discussed with the college scouting coordinator about treatment plan that patient iscurrently [...] rce(s) Supporting Document(s) ID Date Data Source [id number] 11/21/2020 01:41:00 PM EDT [address] [id number] HEALTH PROGRESS NOTEPATIENT NAME: YARELI HATCH [facility] PH[facility]ICIAN: BROOKLYN ONEILL MDAUTHOR: Surendra SMITH,P.ADM. DATE: 10/31/20 MR#: [id number] NOTE DATE: 11/21/20 RM#: 310EVALUATION TIME: 1356 [...] [facility] [...] unable to be placed in many [facility] such [facility] where she went to custodial and then [...] SIGNED: 11/21/20 Electronically SignedTIME SIGNED: 1357 BROOKLYN ONELIL MD Name Value Range Interpretation Code Description Data Stephanie rce(s) Supporting Document(s) ID Date Data Source [id number] 11/20/2020 02:02:00 PM EDT [address] [address]ULMIWR HEALTH PROGRESS NOTEPATIENT NAME: YARELI HATCH CATTENDING PHYSICIAN: BROOKLYN ONEILL MDAUTHOR: Surendra SMITH,P.ADM. DATE: 10/31/20 MR#: [id number] NOTE DATE: 11/20/20 RM#: 310EVALUATION TIME: 1403 is 20-year-old female, currently single, past psych historyof bipolar disorder, poor impulse control and borderline personality disorderChief complaint concern about her ability to maintain safety and possiblesuicidal thoughtsEvents Since Last EntryYareli was seen today along with the college scouting coordinator, Gloria, and a PAstudent from [facility]. Patient states she is very stressed. [...] primary school and then she pursued with [employer] for her high school. She reports she has been tested for low IQ in earlyage.Topic of her placement came up. Patient states she is not willing to go back toapartment program because she did not have a good past experience with thesanc. She stated she has been allowed to [...] she was kicked out from [facility] in [facility]; hence, she does not wish to [...] rce(s) Supporting Document(s) ID Date Data Source [id number] 11/19/2020 01:53:00 PM EDT [place] [id number] HEALTH PROGRESS NOTEPATIENT NAME: YARELI HATCH PHYSICIAN: BROOKLYN ONEILL MDAUTHOR: Surendra SMITH,P.ADM. DATE: 10/31/20 MR#: [id number] NOTE DATE: 11/19/20 RM#: 310EVALUATION TIME: 1354 is 20-year-old female, currently single, past psych historyof bipolar disorder, poor impulse control and borderline personality disorderChief complaint concern about her ability to maintain safety and possiblesuicidal thoughtsEvents Since Last EntryYareli was seen today along with the college scouting coordinator, Gloria, and a PAstudent from [facility]. Patient expressed her irritation and statedthat [...] inquireabout the AOT and her placement in [place]. She expressed her irritationrelated to her placement issue. She stated, "you do not have to take care of me". The patient states if somehow, she gets AOT and is placed in [place], itwill still not work. The patient also [...] also has the meeting with state like [facility]. Patientis not happy about it. I told her this is important because they are the majorresource, and they will guide us. She is not making progress.Portions of this section were scribed by Shell Ariza on 11/19/20 at 1820DATE SIGNED: 11/19/20 Electronically SignedTIME SIGNED: 1819 BROOKLYN ONEILL MD Name Value Range Interpretation Code Description Data Stephanie rce(s) Supporting Document(s) ID Date Data Source [id number] 11/18/2020 02:32:00 PM EDT [address] HEALTH PROGRESS NOTEPATIENT NAME: YARELI HATCH PHYSICIAN: BROOKLYN ONEILL MDAUTHOR: Surendra SMITH,P.ADM. DATE: 10/31/20 MR#: [id number] NOTE DATE: 11/18/20 RM#: 310EVALUATION TIME: 1432 is 20-year-old female, currently single, past psych historyof bipolar disorder, poor impulse control and borderline personality disorderChief complaint concern about her ability to maintain safety and possiblesuicidal thoughtsEvents Since Last EntryYareli was seen today along with the college scouting coordinator, Gloria, and a PAstudent from [facility]. She is doing well today. She [...] angry child she will be [facility] and not to community health. Patient admitsto not having any compassion [...] has [facility]. I am in the process of working with the AOT coordinator to arrange forgetting the AOT done for her. We really do not have anywhere to send here.Given the fact she was on restraints over the weekend and is on jce-oa-ppnueefpmdgeyz because she put a pillow over her neck to strangle herself. I donot recommend discharge for her. I will explain to her my reasons for notdischarging her. We do not have a safe discharge plan for her. [facility] does [facility]. Her Zydus has been increased to 10 mg daily.Portions of this section were scribed by Shell Ariza on 11/18/20 at 1626DATE SIGNED: 11/18/20 Electronically SignedTIME SIGNED: 173 BROOKLYN ONEILL MD Name Value Range Interpretation Code Description Data Stephanie rce(s) Supporting Document(s) ID Date Data Source [id number] 11/17/2020 11:21:00 PM EDT [address] [id number] NOTE FOLLOW UPPATIENT NAME: YARELI HATCH PHYSICIAN: BROOKLYN ONEILL MDAUTHOR: Dori SMITH,AlexanderADM. DATE: 10/31/20 MR#: [id number] NOTE DATE: 11/17/20 RM#: 310EVALUATION TIME: 2324 [...] rce(s) Supporting Document(s) ID Date Data Source [id number] 11/15/2020 02:15:00 PM EDT [address] [id number] HEALTH PROGRESS NOTEPATIENT NAME: YARELI HATCH PHYSICIAN: BROOKLYN ONEILL MDAUTHOR: Surendra SMITH,P.ADM. DATE: 10/31/20 MR#: [id number] NOTE DATE: 11/15/20 RM#: 310EVALUATION TIME: 1416 is 20-year-old female, currently single, past psych historyof bipolar disorder, poor impulse control and borderline personality disorderChief complaint concern about her ability to maintain safety and possiblesuicidal thoughtsEvents Since Last EntryYareli was seen today along with the college scouting coordinator, and a [facility]. She is in a better mood today. [...] treatment plan. we are awaiting information from [facility] for placement effortsPortions of this section were scribed by Shell Ariza on 11/15/20 at 1415DATE SIGNED: 11/15/20 Electronically SignedTIME SIGNED: 141 BROOKLYN ONEILL MD Name Value Range Interpretation Code Description Data Stephanie rce(s) Supporting Document(s) ID Date Data Source [id number] 11/14/2020 07:41:00 PM EDT [address] HEALTH PROGRESS NOTEPATIENT NAME: YARELI HATCH CATTENGIOVANNY PHYSICIAN: BROOKLYN ONEILL MDAUTHOR: Surendra SMITH,P.ADM. DATE: 10/31/20 MR#: [id number] NOTE DATE: 11/14/20 RM#: 310EVALUATION TIME: 1948 is 20-year-old female, currently single, past psych historyof bipolar disorder, poor impulse control and borderline personality disorderChief complaint concern about her ability to maintain safety and possiblesuicidal thoughtsEvents Since Last EntryYareli was seen today with college scouting coordinator Cata and a PA student. Sheseems to be in better mood today without any hostility or irritableness. Sheasked the same question, what is happening to her AOT. We advised her that theAOT is being pursued and Lorraine is checking with [facility] and she will get back tous. Ever since Zyprexa has been added her mood has improved. She wants to gothe community residence in [place]. The problem remains the uncertainty aboutwhen the [...] to pursue AOT as well as with [facility].Portions of this section were scribed by Shell Ariza on 11/14/20 at 1941DATE SIGNED: 11/14/20 Electronically SignedTIME SIGNED: 1948 BROOKLYN ONEILL MD Name Value Range Interpretation Code Description Data Stephanie rce(s) Supporting Document(s) ID Date Data Source [id number] 11/13/2020 04:22:00 PM EDT [address] HEALTH PROGRESS NOTEPATIENT NAME: YARELI HATCH [facility] PHYSICIAN: BROOKLYN ONEILL MDAUTHOR: Surendra SMITH,P.ADM. DATE: 10/31/20 MR#: [id number] NOTE DATE: 11/13/20 RM#: 310EVALUATION TIME: 1624 is 20-year-old female, currently single, past psych historyof bipolar disorder, poor impulse control and borderline personality disorderChief complaint concern about her ability to maintain safety and possiblesuicidal thoughtsEvents Since Last EntryYareli was seen today with the college scouting coordinator. She continues to notshow any insight. [...] an opening in a community residence in [place]. Her Thorazinehas been changed to 300 mg [...] rce(s) Supporting Document(s) ID Date Data Source [id number] 11/12/2020 08:02:00 PM EDT [address] [id number] HEALTH PROGRESS NOTEPATIENT NAME: YARELI HATCH CATTENDING PHYSICIAN: BROOKLYN ONEILL MDAUTHOR: Surendra SMITH,P.ADM. DATE: 10/31/20 MR#: [id number] NOTE DATE: 11/12/20 RM#: 310EVALUATION TIME: 2007 [...] for her. [facility] [place]. Will also work on her coping skill building.Portions of this section were scribed by Shell Ariza on 11/12/20 at 2002DATE SIGNED: 11/12/20 Electronically SignedTIME SIGNED: 2008 BROOKLYN ONEILL MD Name Value Range Interpretation Code Description Data Stephanie rce(s) Supporting Document(s) ID Date Data Source [id number] 11/12/2020 04:37:00 PM EDT Joe [address] [id number] NOTE FOLLOW UPPATIENT NAME: YARELI HATCH [facility] PHYSICIAN: BROOKLYN ONEILL MDAUTHOR: Jacque Chowdhury. DATE: 10/31/20 MR#: [id number] NOTE DATE: 11/12/20 RM#: 310EVALUATION TIME: 1640 [...] rce(s) Supporting Document(s) ID Date Data Source [id number] 11/11/2020 07:43:00 AM EDT [place] Exam Number: [id number] Reported By: Maria De Jesus KIM M.D. Signed By: Rakan KIM M.D. Name Value Range Interpretation Code Description Data Stephanie rce(s) Supporting Document(s) ID Date Data Source [id number] 11/10/2020 11:20:00 AM EDT [address] [id number] HEALTH PROGRESS NOTEPATIENT NAME: YARELI HATCH FELTON PHYSICIAN: BROOKLYN ONEILL MDAUTHOR: Colleen SMITH,DhruvADM. DATE: 10/31/20 MR#: [id number] NOTE DATE: 11/10/20 RM#: 310EVALUATION TIME: 112 [...] rce(s) Supporting Document(s) ID Date Data Source [id number] 11/09/2020 11:20:00 AM EDT [place] [id number] HEALTH PROGRESS NOTEPATIENT NAME: YARELI HATCH PHYSICIAN: BROOKLYN ONEILL MDAUTHOR: Colleen SMITH,DhruvADM. DATE: 10/31/20 MR#: [id number] NOTE DATE: 11/09/20 RM#: 310EVALUATION TIME: 1121 [...] rce(s) Supporting Document(s) ID Date Data Source [id number] 11/08/2020 01:30:00 PM EDT [address] PROGRESS NOTEPATIENT NAME: YARELI HATCH PHYSICIAN: BROOKLYN ONEILL MDAUTHOR: Surendra SMITH,P.ADM. DATE: 10/31/20 MR#: [id number] NOTE DATE: 11/08/20 RM#: 310EVALUATION TIME: 1334 Since Last EntryYareli was seen today along with the college scouting coordinator, Gloria, and a PAstudent from [facility]. She apologized for not coming to [...] and not thinkingcompletely. Lorraine was discussing with [facility] about further treatment options forher as [...] rce(s) Supporting Document(s) ID Date Data Source [id number] 11/07/2020 03:12:00 PM EDT [place] [id number] HEALTH PROGRESS NOTEPATIENT NAME: YARELI HATCH CATTENDING PHYSICIAN: BROOKLYN ONEILL, MDAUTHOR: Surendra SMITH,P.ADM. DATE: 10/31/20 MR#: [id number] NOTE DATE: 11/07/20 RM#: 310EVALUATION TIME: 151 [...] rce(s) Supporting Document(s) ID Date Data Source [id number] 11/06/2020 01:30:00 PM EDT [place] [id number] HEALTH PROGRESS NOTEPATIENT NAME: MAMIEYARELI CATSALVADOR PHYSICIAN: BROOKLYN ONEILL MDAUTHOR: Surendra SMITH,P.ADM. DATE: 10/31/20 MR#: [id number] NOTE DATE: 11/06/20 RM#: 310EVALUATION TIME: 1330 Since Last EntryYareli was seen today along with the college scouting coordinator, Gloria, and a PAstudent from [facility]. She continues to be depressed. She is inbetter mood today. She was cooperative durin g the session. She answered all myquestions. Patient states she is forced to talk. She states she is barely ableto manage herself. When I relocation counselor Yareli talk about her life and [...] rce(s) Supporting Document(s) ID Date Data Source [id number] 11/05/2020 03:44:00 PM EDT [address] HEALTH PROGRESS NOTEPATIENT NAME: YARELI HATCH CATSALVADOR PHYSICIAN: BROOKLYN ONEILL MDAUTHOR: Surendra SMITH,P.ADM. DATE: 10/31/20 MR#: [id number] NOTE DATE: 11/05/20 RM#: 310EVALUATION TIME: 1546 Since Last EntryYareli was seen today along with the college scouting coordinator, Gloria, and a PAstudent from [facility]. She continues to be depressed. She [...] rce(s) Supporting Document(s) ID Date Data Source [id number] 11/04/2020 09:38:00 AM EDT [address] [id number] NAME: YARELI HATCH#: [id number] PHYSICIAN: BROOKLYN ONEILL MD ADM. DATE: 10/31/20PROGRESS NOTE DATE: 11/04/20 .#: 310ACCOUNT #: [id number] NOTEIDENTIFICATION: A 20-year-old female with schizoaffective disorder.VITAL SIGNS: Temperature of 97, pulse of 101, respirations 19, blood wywgszwn387/79.SUBJECTIVE: The patient came to the interview room. [...] Dictated: 11/04/2020 09:20:11Date Transcribed: 11/04/2020 08:38:16JV/PUSDelfino #: [id number]: 11/04/20 0920 Electronically SignedTRANS:11/04/20 0938 FILI CANELA MDTRANS BY:TONDAALMA SIGNED:11/04/20REPORT COPY TO: Name Value Range Interpretation Code Description Data Stephanie rce(s) Supporting Document(s) ID Date Data Source [id number] 11/03/2020 11:54:00 AM EDT [facility] [id number] NAME: YARELI HATCH#: [id number] PHYSICIAN: BROOKLYN ONEILL MD ADM. DATE: 10/31/20PROGRESS NOTE DATE: 11/03/20 .#: 310ACCOUNT #: [id number] NOTEIDENTIFICATION: A 20-year-old female with schizoaffective disorder.VITAL [...] Dictated: 11/03/2020 09:56:45Date Transcribed: 11/03/2020 10:54:25JV/Erin #: [id number]: 11/03/20 0956 Electronically SignedTRANS:11/03/20 1154 FILI CANELA MDTRANS BY:IATDATE SIGNED:11/04/20REPORT COPY TO: Name Value Range Interpretation Code Description Data Stephanie rce(s) Supporting Document(s) ID Date Data Source [id number] 11/01/2020 10:43:00 AM EDT [address] [id number] NAME: YARELI HATCH Janette Jensne#: [id number] PHYSICIAN: BROOKLYN ONEILL MD ADM. DATE: 10/31/20ACCOUNT #: [id number] .#: [id number] ASSESSMENTIDENTIFICATION: A 20-year-old female with [...] She is living with a friendhere in [place]. The patient stated that she is a [...] 11/01/2020 10:19:56Date T ranscribed: 11/01/2020 09:43:52JV/PUSRuchib #: [id number]: 11/01/20 1019 Electronically SignedTRANS:11/01/20 1043 FILI CANELA MDTRANS BY:KIERRA SIGNED:11/02/20REPORT COPY TO: Name Value Range Interpretation Code Description Data Stephanie rce(s) Supporting Document(s) ID Date Data Source [id number] 10/31/2020 07:04:00 PM EDT [address] [id number] AND PHYSICALPATIENT NAME: YARELI HATCH MR#: [id number] PHYSICIAN: BOGDAN MACIAS MDAUTHOR: Theresa Chowdhury DATE: [...] 17; Temp 98.3; Pulse Ox 96% ; xw1Dwnuecgy ExaminationGeneral Appearance no acute distress, afebrile, alertHead [...] rce(s) Supporting Document(s) ID Date Data Source [id number] 10/29/2020 10:26:00 PM EDT [facility] Name Value Range Interpretation Code Description Data Stephanie rce(s) Supporting Document(s) COVID-19, CORDELL NEGATIVE NEGATIVE N [facility] Methodology: Isothermal Nucleic Acid Amp [...] Emergency Use Authorization. ID Date Data Source [id number] 10/29/2020 09:38:25 PM EDT [facility] Name Value Range Interpretation Code Description Data Stephanie rce(s) Supporting Document(s) Progress Note [facility] [id number] lbm [file] [id number]= ID Date Data Source [id number] 10/29/2020 06:37:00 PM EDT [facility] [place] Name Value Range Interpretation Code Description Data Stephanie rce(s) Supporting Document(s) SALICYLATE < 1.7 mg/dL 0.0-20.0 [facility] ID Date Data Source [id number] 10/29/2020 06:37:00 PM EDT [facility] [place] Name Value Range Interpretation Code Description Data Stephanie rce(s) Supporting Document(s) ACETAMINOPHEN > 2.0 ug/mL 0-30 [facility] Date Data Source [id number] 10/29/2020 06:37:00 PM EDT [facility] [place] Name Value Range Interpretation Code Description Data Stephanie rce(s) Supporting Document(s) HCG QUAL SERUM Negative Negative [facility] ID Date Data Source [id number] 10/29/2020 06:37:00 PM EDT [facility] [place] Name Value Range Interpretation Code Description Data Stephanie rce(s) Supporting Document(s) ETOH 0.000 g/dL NONE DETECTED N [facility] NONE DETECTED ID Date Data Source [id number] 10/29/2020 06:37:00 PM EDT [facility] [place] Name Value Range Interpretation Code Description Data Stephanie rce(s) Supporting Document(s) GLU 109 mg/dL 70-110 [facility] Patients taking Sulfasalazine may have f alsely depressedGlucose levels. Patients taking Sulfapyridine may havefalsely elevated Glucose levels. Patients should be drawnfor Glucose before the initial administration of eitherdrug. BUN 17 mg/dL 7-23 [facility] CRE 0.658 mg/dL 0.500-1.300 [facility] GFR > 60 mL/min [facility] CHLORIDE 111 mmol/L 99-110 [facility] NA 142 mmol/L 136-147 [facility] POTASSIUM 4.1 mmol/L 3.5-5.1 [facility] TCO2 26 mmol/L 20-33 [facility] ANION GAP 9.1 10.0-20.0 [facility] CA 8.9 mg/dL 8.3-10.7 [facility] ALKALINE PHOS 121 U/L 45-117 [facility] TP 7.5 g/dL 6.0-7.8 [facility] ALB 3.8 g/dL 3.5-5.0 [facility] ESRD Dialysis patient Albumin reference range: 2.9-4.4 g/dL GL 3.7 g/dL 2.3-3.5 [facility] A/G 1.0 1.0-2.5 [facility] T. BILIRUBIN 0.2 mg/dL 0.1-1.1 [facility] The Dimension Lyman Total Bilirubin is n ot recommended forpatients undergoing treatment with eltrombopag (Promacta)due to the potential for falsely elevated results. ALTI 49 U/L 6-54 [facility] Patients taking Sulfasalazine and/or Sul fapyridine may havefalsely depressed ALT levels. Patients should be drawn forALT before the initial administration of either drug. AST 26 U/L 6-38 [facility] Patients taking Sulfasalazine and/or Sul fapyridine may havefalsely depressed AST levels. Patients should be drawn forAST before the initial administration of either drug. ID Date Data Source [id number] 10/29/2020 05:54:00 PM EDT [facility] [place] Name Value Range Interpretation Code Description Data Stephanie rce(s) Supporting Document(s) WBC 7.63 x10E3/uL 4.0-10.5 [facility] RBC 4.24 x10E6/uL 4.20-5.40 [facility] Hemoglobin 12.8 g/dL 12.0-16.0 [facility] Hematocrit 37.6 % 37.0-47.0 [facility] MCV 88.7 fL 81.0-99.0 [facility] MCH 30.2 pg 27.0-31.0 [facility] MCHC 34.0 g/dL 32.7-35.6 [facility] RDW 12.3 % 11.5-14.0 [facility] Platelet count 211 x10E3/uL 150-450 N [facility] ital MPV 9.6 fl 6.9-9.5 [facility] Neutrophils 57.8 % 34-64 [facility] Lymphocytes 32.9 % 25-45 N [facility] Monocytes 7.2 % 1.7-10.6 [facility] Eosinophils 1.6 % 0.4-7.0 [facility] Basophils 0.1 % 0.1-2.0 [facility] Imm. Gran. 0.4 % 0.1-2.0 [facility] Abs. Neutro. 4.41 x10E3/uL 1.2-7.6 [facility] [place] Abs. Lymph. 2.51 x10E3/uL 1.0-3.5 [facility] Abs. [place]. 0.55 x10E3/uL 0.1-1.0 [facility] Abs. Eosin. 0.12 x10E3/uL 0.1-0.7 N [facility] al Abs. Baso. 0.01 x10E3/uL 0.0-0.1 [facility] Abs. Imm. Gran. 0.03 x10E3/uL 0.0-0.1 [facility] spital ANRBC% 0 % 0 [facility] ID Date Data Source [id number] 10/29/2020 06:28:00 PM EDT [facility] [place] Name Value Range Interpretation Code Description Data Stephanie rce(s) Supporting Document(s) PCP VISTA NEG NEGATIVE [facility] MINIMUM LEVEL OF DETECTION IS 25 ng/ml BENZODIAZEPINES NEG NEGATIVE [facility] MINIMUM LEVEL OF DETECTION IS 200 ng/ml COCAINE VISTA NEG NEGATIVE [facility] MINIMUM LEVEL OF DETECTION IS 300 ng/ml AMPHETAMINES NEG NEGATIVE [facility] MINIMUM LEVEL OF DETECTION IS 1000 ng/ml BARBITURATES NEG NEGATIVE [facility] al CUTOFF CONCENTRATION IS 200 ng/ml CANNABINOIDS NEG NEGATIVE [facility] al CUTOFF CONCENTRATION IS 50 ng/ml METHADONE VISTA NEG NEGATIVE [facility] al MINIMUM LEVEL OF DETECTION IS 300 ng/ml OPIATE VISTA NEG NEGATIVE [facility] MINIMUM DETECTION LEVEL IS 300 ng/ml ID Date Data Source [id number] 10/29/2020 05:57:00 PM EDT [facility] Name Value Range Interpretation Code Description Data Stephanie rce(s) Supporting Document(s) URINE COLOR Yellow [facility] UAPR Turbid [facility] UGLU Negative NEGATIVE [facility] URINE BILIRUBIN Negative NEGATIVE [facility] al UKET Negative NEGATIVE [facility] USG 1.024 1.010-1.025 [facility] UBLO Negative NEGATIVE [facility] UpH 7.0 5.0-8.0 [facility] UPRO Negative Negative [facility] UUB 1.0 mg/dL 0.2-1.0 [facility] UNIT Negative Negative [facility] ULEU Negative Negative [facility] ID Date Data Source [id number] 10/31/2020 10:31:00 AM EDT [facility] Physician DocumentationFabby Hinkle edical CenterName: Yareli DuvallAge: 20 yrsSex: FemaleDOB: 2000MRN: [id number] Date: 10/29/2020Time: 17:31Account#: [id number] MD:ED Physician Richie العليposition Summary:10/31/20 08:52Hospitalization OrderedHospitalization [...] presents to ER via [facility] dg6jiix complaints of Psych Problem.19:29 Patient comes the ER today for mental health evaluation. Patient was fx7mhjj in the ER for mental health on [...] Smoking status: Patient states was never smoker of[employer]. ETOH status Denies use of ETOH.- Advance [...] exhibiting self-injurious behavior in the ER not nw6bnshwowjpx to verbal de-escalation requiring chemical sedation. Averbal order was given for B-52 while I was busy with another issue.When I went to put the order in the computer, Haldol allergy poppedup however the medication was already given by the nurse. Patientclosely monitored for any evidence of allergic reaction..06:46 Data reviewed: vital signs, nurses notes, lab test result(s). ED av1mastyx: Care is endorsed to Dr. العلي at [...] continued to note aggressive behavior and started kp2nqzfzk verbal threats to staff including threatening to [...] :26 Order name: COVID-19 PROF; Complete Time: 04:83OCYX54:35 Order name: Diet - Mental Health Tray (call dietary); Complete Time: tlm2::35 Order name: Belongings List; Complete Time: 09:37 :35 Order name: Document Weight and Height for BMI; Complete Time: 09:37 :35 Order name: Mental Health Level 3; Complete Time: 09:37 :35 Order name: VS q shift; Complete Time: 21:08 :29 Order name: Medically Cleared for Eval by-Psychosocial, Bindery Helper th4(.JAN); Complete Time: :02 Order name: EKG.; Complete Time: 22:08 :24 Order name: Mental Health Level 4; Complete Time: 09:2 :54 Order name: Restrain Patient; Complete Time: 21:54 bn1Axsnlfoau Medications:10/2018:54 Drug: Seroquel - QUEtiapine 25 mg [quetiapine 25 mg tablet (1 tabs)] oh1Bfzmy: PO;22:08 Follow up: Response: No adverse reaction :38 Drug: B52 IM - (LORazepam 2 mg, diphenhydrAMINE 50 mg, Haloperidol tt3Nagbteq 5 mg) Route: IM; Site: right vastus [...] diphenhydrAMINE 50 mg [diphenhydramine 50 mg/mL injection cr1wynyjwbb (1 mL)] {Note: given for severe anxiety.} [...] 20 mg [ziprasidone 20 mg/mL (final concentration) sm0yakqdhfqyqaom solution (1 mL)] Route: IM; Site: right [...] Rhythm is regular, Normal Sinus Rhythm. QRS bg5Acxi is Normal. MN interval is normal. QRS interval is normal. QTinterval is normal. No Q waves. T waves are Normal. No ST changesnoted. Clinical impression: Normal ECG. Interpreted by me.Signatures:Dispatcher [employer] Елена Boogie RN RN klpMMagaly funk RN RN tlmElliott, Suzanne, MD MD seHowland, Todd, MD MD id1UiiorFortunato humphrey RN RN xf2EzitrpBreonna Marei RN RN ul5GqpetwgAnoop Bowman MD MD jeremias2DStacy zhou RN vb3Jcxarahnqlr: (The following items were deleted from the chart)10/2110:57 11:56 COVID-19 PROFILE+LAB ordered. JMPQZZOT23/2200:32 00:10 LORazepam 4 mg IM once ordered. dk2 dk2 Name Value Range Interpretation Code Description Data Stephanie rce(s) Supporting Document(s) ID Date Data Source [id number] 10/31/2020 10:31:00 AM EDT [facility] [place] [facility] Tootie terName: Yareli DuvallAge: 20 yrsSex: FemaleDOB: 2000MRN: [id number] Date: 10/29/2020Time: 17:31Account#: [id number] MD:Diagnosis: Major depressive disorder, recurrent, unspecifiedPresentation:10/2016:31 Presenting complaint: Patient states: "suicidal thought with plan and tlmanxiety:". Coronavirus Screening: Have you been diagnosed withCOVID-19 in the past 30 days? no Are you currently on [facility] no Flu-like symptoms reported in the last 14 days: no.Have you had close contact with confirmed or suspected COVID-19 case?no Do you live in a setting where a large of amount of people live,such as senior living, family care, alf, etc? no. Have you traveledto a location with widespread or ongoing COVID-19 community spread [facility]? no Have you traveled internationally or hadcontact with someone that has traveled and has been ill in the past 3weeks? no Have you received the COVID vaccine? No. CommunicationSpeaks Nigerien? Yes, is preferred language. Communicable DiseaseScreen: Negative [...] Smoking status: Patient states was never smoker oftobaKeepGoo. ETOH status Denies use of ETOH.- Advance [...] that the patient found a paper clip ju2dokvjjqtvi on a "window"- she would not give [...] reported that patient had been "digging and oz9vfdnmghudn herself" and despite constant redirection, MHW had tomanually hold wrists down to prevent her from doing this. She doeshave bilateral superficial scratches to her wrists w/o bleeding. U22jsiumnjf ordered and given.05:26 Reassessment: keno writer/runner was called back to room by psa- pt was still nv4bkygwrdrzm to dig at herself. She was verbally [...] room due to patient harming self by iy6fbnepmovvd self with her fingernails several attempts made to getpatient to stop, patient asked why she was doing this and she replied"because I'm depressed and anxious" patient offered medication tohelp with her severe anxiety and she accepted MD made aware ofsituation and order recieved..20:39 Reassessment: Patient continues to try to hurt self and report severe ki0mwdjogy MD called to bedside to assess the situation and additionalmedications ordered..21:55 Reassessment: Despite all other interventions patient continues to jw5try to harm self MD notified and order received to place patient intorestraints at this time for safety.22:48 Reassessment: Patient appears in no apparent distress at this time. ic5Pahnsct released from restraints at 2245, patient reports [...] Report Not Completed. Intervention: Observation Level 3. vx8Srxjqb health consult is initiated at 20:30. Referral Information:Evaluation referral is generated by the patient himself / herself.The patient was referred for evaluation because expresses suici dalideations with the plan to hang her self or to overdose.20:57 Subjective: The patients chief complaint is Pt presents to the ED as sm8a walk in due to suicidal ideations. Pt was discharged from [facility] three hours before arriving to the ED. [...] inpatient mental health.She has been admitted at [facility], [facility], and PSYCHIATRIC.Pt has a history of Bipolar, Major Depressive, Anxiety. She statesthat she does not take her medications constantly which continuedwhile she was inpatient. Pt reports that she is set up with [facility] for[facility] patient services. She will [...] reports history of anxiety, Bipolar Disorder, Depression, ef5mzpdqym attempt: multiple by overdose Other: Borderline PersonalityDisorder. Mental Health Admissions: [facility]. [facility] was [facility] today Current Outpatient MentalHealth Services: Therapist / Agency: Darline/[facility]. Living Environment:Family / Home Support: poor The [...] patient status is not currently needed or ec5nnoaqekvwvo. Consultation: Psych MD informed of patient's status at21:00, ED MD notified of patients status at 21:17. Disposition:Medically cleared for disposition by Dr Argueta. Psychiatric Consultis performed by phone with Dr Macias The patient is to be transferredto bed available facility. Legal Status: Patient's legal status [facility] [place].Voice Services: 9.37. Commitment papers arecompleted. DSM-V DX [place] I diagnosis: Depression, Unspecified.Insurance Pre-Certification: Not Required. [facility] Admission Criteria:The patient is experiencing [...] referralhospital acceptance. The patient is not a banking services advisor or militarydependent. [place] Suicide Severity Rating Scale: Suicidal IdeationRating 5; Intensity of Ideations Rating 25; Suicidal Behavior Rating1.10/2100:37 Narrative Pt was using her sheet and pillow case to wrap around her vo5fnkh. Blankets and pillow case were removed. Pt [...] left arm. She has been redirected multiple ro4iwclt by PSA and sitter. Security is present. Pt is now currentlywaiting TV with both hands visible.03:58 Narrative Pt is laying down, watching TV. Sitter is present. Safety sm8is maintained.04:43 Narrative Pt started digging at her arm again. PSA and sitter had jr3nbwxebxjt to redirect the pt with no success. Nurse and MD was madeaware. B52 was given. Pt has a keisha on her left wrist and a smallermark on her right wrist. Both have been looked at by nurse.19:21 Narrative PSA role handed off to this keno writer/runner at 1900. sm804/2201:04 Narrative Since shift change at 1930 pt has been digging herself, jg3dcppbneylmr to leave, yelling and swearing, she has [...] Narrative PSA role handed off to this keno writer/runner at 7:30 AM. kf09:33 Disposition: The patient is admitted to PS[facility]CH[facility]ATRIC [facility] Patient report is kfgiven to Dylan Ribeiro RN. Legal Status: Patient's legal status willbe Emergency: 9.39. Commitment papers are completed. PT has beenprovided with a copy of her legal status and rights.Psych:10/2017:02 Subjective: Patient's mood is euphoric, Delusions are denied, tlmHallucinations are denied Having thoughts of suicide. Plan forsuicide is to overdose on drugs, [facility] reports she told them [...] Observation Level Level 4 Sitter needed. Provider kq3Mnvobjjh Nils Argueta MD Charge Nurse notified Breonna [...] armband on for positive identification. Placed in [facility] emergency department. Bed in low position. Call light in reach.18:01 No Physician assisted procedures completed. Labs drawn. Collected by tlmlab. Urine collected. Clean catch specimen.19:13 No apparent distress. Psychosocial Bindery Helper. tlm19:13 Sitter at bedside. tlm19:22 Nils Argueta MD is Attending Physician. th404/2108:18 Notified ED physician of other air intercept controller pt vomited would like tlmsomething, new orders [...] mg [quetiapine 25 mg tablet (1 tabs)] kk5Jgpyc: PO;22:08 Follow up: Response: No adverse reaction tp:38 Drug: B52 IM - (LORazepam 2 mg, diphenhydrAMINE 50 mg, Haloperidol et9Slctvix 5 mg) Route: IM; Site: right vastus [...] diphenhydrAMINE 50 mg [diphenhydramine 50 mg/mL injection uf9xtrrypov (1 mL)] {Note: given for severe anxiety.} [...] 20 mg [ziprasidone 20 mg/mL (final concentration) ux0ouzhnugkspvlk solution (1 mL)] Route: IM; Site: right [...] Psych accompanied by dena, with chart, Other [facility] officers x 210:30 Condition: stable.10:30 Instructed on need for admit.10:30 Discharge Assessment: Patient awake, alert and oriented x 3. Nocognitive and/or functional deficits noted. Patient verbalizedunderstanding of disposition instructions. Patient angry andinitially uncooperative Patient has no functional deficits.10:31 Patient left the ED. klpSignatures:Елена Hugo, RN Magaly Groves, RN Kylie Garces MD MD seDow, Wendy, RN RN jw9KbescgZakia Cortez, RN RN Zakia Pham PSA PSA kfHowland, Todd, MD MD li9IxsyvFortunato humphrey RN RN hx5UolsygBreonna yu, RN RN kt8KslvctntUhsa Adams Derek MD bj7Rcbiizsrxfd: (The following items were deleted from the [...] Patient reports history of anxiety, Bipolar Disorder, be7Gbdtdztbhq, suicide attempt: multiple by overdose Mental HealthAdmissions: multiple admissions. [facility] and wasdischarged today Current Outpati [...] appears in no apparent distress at this yu3lzsq. jw5 Name Value Range Interpretation Code Description Data Stephanie rce(s) Supporting Document(s) ID Date Data Source [id number] 10/28/2020 08:29:00 PM EDT [place], [place] [address]PATIENT NAME: YARELI HATCH#: [id number] PHYSICIAN: BROOKLYN ONEILL MDACCOUNT #: [id number] ADM. DATE: 10/26/20PATIENT : 00 DISCH. DATE: [...] rce(s) Supporting Document(s) ID Date Data Source [id number] 10/28/2020 06:30:00 PM EDT [place], [place] [address]MENTAL HEALTH PROGRESS NOTEPATIENT NAME: YARELI HATCH PHYSICIAN: BROOKLYN ONEILL MDAUTHOR: Surendra SMITH,P.ADM. DATE: 10/26/20 MR#: [id number] NOTE DATE: 10/28/20 RM#: [id number] TIME: 1830 , , female patient.CC/Hx Present IllnessPt states, "I was and I am feeling suicidal since last week". Reports she [facility] and they didn't admit her so she came to [facility] with a friend and walked herself to the ED for an evaluation.Events Since Last EntryPatient was seen today to assess her improvement. The patient denies any SI/HI.She talked about her friend in [place] with whom she wants to live withuntil residence in [facility].Portions of this section were scribed by Shell Ariza on 10/28/20 at 1832ObjectiveVital SignsVital Signs-LastResult Date TimePulse Ox 98 10/28 1140B/P 122/83 10/28 1140Temp 97.5 10/28 1140Pulse 65 10/28 1140Resp 14 10/28 1140Current MedicationsMiscellaneous Read [id number] NAQuetiapine Fumarate (Seroquel) 25 MG 2000 POChlorpromazine [...] will be discharged tomorrow with services in [place].Portions of this section were scribed by Shell Ariza on 10/28/20 at 1830DATE SIGNED: 10/28/20 Electronically SignedTIME SIGNED: 1831 BROOKLYN ONEILL MD Name Value Range Interpretation Code Description Data Stephanie rce(s) Supporting Document(s) ID Date Data Source [id number] 10/28/2020 05:10:00 PM EDT [address] DISCHARGE SUMMARYPATIENT NAME: YARELI HATCH MR#: [id number] PHYSICIAN: BROOKLYN ONEILL MDAUTHOR: Surendra SMIHT,P. DATE: 10/26/20 #: [id number] DATE:RpjxdavLgzdazzvnrhkns42-pxdk-cby, , female patient.Chief ComplaintPt states, "I was and I am feeling suicidal since last week". Reports she wentto [facility] last week and they didn't admit her so she came to [place] tosta with a friend and walked herself to the ED for an evaluation.Reason for AdmissionIncreased depression and feeling suicidal. SIB, by scratching forearms with apencil when in-patient at [facility] in Aug.History of Presenting IllnessYareli [...] HistoryHas been staying with a friend in [place] that she met while in the [facility].Abuse HistoryAdmits but doesn't discuss today.Legal HistoryCharged for disorderly conduct and harrassement but hasn't been to court yet.This involved staff during a restraint at [facility].Portions of this section were scribed by Shell Ariza on 10/28/20 at 1710Hospital CourseHospital ScottI saw her on Wednesday and then today. She talked about her multiple overdosesand that [facility] did not want to hospitalize her. So, [facility] and [facility] to [facility] ER. [...] her. Shestates she has a friend in [place] and then wait until residence in [facility] up.Portions of this section were scribed by Shell Ariza on 10/28/20 at 1803DATE SIGNED: 10/28/20 Electronically SignedTIME SIGNED: 1808 BROOKLYN ONEILL MD Name Value Range Interpretation Code Description Data Stephanie rce(s) Supporting Document(s) ID Date Data Source [id number] 10/27/2020 10:23:00 AM EDT [facility] [address] PSYCHIATRIC ASSESSMENTPATIENT NAME: YARELI HATCH MR#: [id number] PHYSICIAN: BROOKLYN ONEILL MDAUTHOR: Frantz Win DATE: 10/26/20 RM#: [id number], , female patient.Chief ComplaintPt states, "I was and I am feeling suicidal since last week". Reports she wentto [facility] last week and they didn't admit her so she came to [place] tosta with a friend and walked herself to the ED for an evaluation.Reason for AdmissionIncreased depression and feeling suicidal. SIB, by scratching forearms with apencil when in-patient at [facility] in Aug.History of Presenting IllnessYareli is friendly, polite and cooperative today. Reports she feels saferwhen she is here in-patient. Has not been taking [facility] She didn't f/u with her out-patient services and didn'tpick up her prescribed meds from the pharmacy. She reports she notices nodifference on or off her medications.Past Psych/Medical HistoryPsychiatric HistorySignificant psych historyMedical HistoryDeniesDrugs/Alcohol/Tobacco HistoryDeniesHome MedicationsSee Home Medication ListAllergiesCoded Allergies:haloperidol (From HALDOL) (06/15/20)risperidone (08/04/19)Family HistoryFamily history of mental health and substance use.Social HistoryHas been staying with a friend in [place] that she met while in the [facility].Abuse HistoryAdmits but doesn't discuss today.Legal HistoryCharged for disorderly conduct and harrassement but hasn't been to court yet.This involved staff during a restraint at [facility].ExamVital SignsVital Signs-LastResult Date TimePulse Ox 100 [...] (5.0 - 8.0) 6.0 10/26 07Ur Specific Borden (1.010 - 1.025) 1.027 H 10/26 07Urine [...] rce(s) Supporting Document(s) ID Date Data Source [id number] 10/26/2020 05:21:00 PM EDT [facility] [address] [address]XJQONWN AND PHYSICALPATIENT NAME: YARELI HATCH MR#: [id number] PHYSICIAN: BROOKLYN ONEILL MDAUTHOR: Eliana Garcia DO DATE: 10/26/20 RM#: [id number] & PHYSICAL DATE: 10/26/20 : 00EVALUATION TIME: 1731HistoryChief Complaint/Admit ReasonSuicidal ideationHistory of Presenting IllnessPatient is a 20 years old [facility]. According [facility] [...] numbness.PsychReports: stress, suicidal ideation.ExamVital SignsVital Signs-24 HRS04 04/542837 1245Temp 97.8Pulse 116Resp 22B/P 131/82 134/79B/P MeanPulse Ox 96O2 DeliveryO2 Flow PpdkRfD5Agjoqzzs ExaminationGeneral Appearance no acute distress, afebrile, alert, awake, conversant, facesymmetricalHead atraumatic, normocephalicNeck no swelling, suppleCardiovascular regular rate, no murmur, normal capillary refill, Positive S1and G0Uoysdbdqjks clear to auscultation, no distress, aerating well, [...] bleeding or surrounding erythemanoted.Data ReviewLaboratory DataRecent Labs-48 hours10/26616845 2730 0732ChemistrySodium (136 - 147 mmol/L) 143Potassium (3.5 [...] CloudyUrine pH (5.0 - 8.0) 6.0Ur Specific Borden (1.010 - 1.025) 1.027 HUrine Protein (Negative) NegativeUrine Ketones (NEGATIVE) NegativeUrine Blood (NEGATIVE) NegativeUrine Nitrite (Negative) NegativeUr Bilirubin Confirm (NEGATIVE) NegativeUrine Urobilinogen (0.2 - 1.0 mg/dL) 0.2Urine Leukocytes (Negative) NegativeUrine Glucose (NEGATIVE) NegativeUrine HCG, Qual (Negative) Tjgqflqu23/010405ZcgtzbunGQUQE-48 (CORDELL) (NEGATIVE) NEGATIVEAssessment/PlanDiagnosis/Problem1. Suicidal ideationA&P- Patient is [...] rce(s) Supporting Document(s) ID Date Data Source [id number] 10/26/2020 11:14:00 AM EDT [facility] [place] Name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 order for mental health wm7mvubflgmqf. 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 hydroxyzine pamoate [...] Smoking status: Patient states was never smoker oftocortical.io. Patient/guardian denies using street drugs, IV drugs, [...] Mass Index 35.58 (100.00 kg, 167.64 cm) [facility] Patient medically screened. th404:14 Data reviewed: vital signs, nurses notes, lab test result(s). ED va2debyxi: Patient remained stable in the ER. Patient [...] Order name: Medically Cleared for Eval by-Psychosocial, Bindery Helper th4(.PSA); Complete Time: 03:11Dispensed Medications:No medications were administeredSignatures:Dispatcher [employer] Nils Hicks MD MD ir8CmhhsFortunato humphrey, RN RN jw5 Name Value Range Interpretation Code Description Data Stephanie rce(s) Supporting Document(s) ID Date Data Source [id number] 06/15/2020 05:47:00 AM EST [facility] Nurse's NotesClaxton-Naveen Medical Tootie terName: Yareli Mejiage: 19 yrsSex: FemaleDOB: 2000MRN: [id number] Date: 06/15/2020Time: 01:36Account#: [id number] 3Priash MD: NONE, - Per PatientDiagnosis: Bipolar disorder, unspecifiedPresentation:06/501:37 Presenting complaint: Patient brought in by [facility] officer Anatoly on a wr6rwws up order for mental health evaluation. Patient reports feelingsuicidal with a plan to strangle self or overdose on medicationdepressed and being homeless. Coronavirus Screening: Have youtraveled internationally or had contact with someone that hastraveled and has been ill in the past 3 weeks? no Have you traveledto a location with widespread or ongoing COVID-19 community spread [facility]? no Flu-like symptoms reported [...] Arrival: Police jw501:40 Acuity Assignment: Triage 2 ui5Ldtwur Assessment:01:47 General: Appears in no apparent distress, Behavior is cooperative. aj9Kmwxkn Screening: (1)Signs/symptoms infection Sepsis is notsuspected. Pain: [...] aware ofpositive screen, suicide precautions implemented. 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 hydroxyzine pamoate [...] Sm[facility] status: [facility] Patient/guardian denies using street drugs, IV drugs, ETOHstatus Denies use of ETOH.- Advance Directives:: None.Screenin:42 Abuse screen: Denies threats or abuse. Denies injuries from another. kr3Zqlrbgsymot screening: No deficits noted. Offer of HIV testing:patient was previously offered screening. Fall Risk None identified.Assessment:05:43 Reassessment: see triage assessment. ab4Gwpagrqdwkds:02:54 Intervention: Observation Level 3. Mental health consult is initiated grat 02:54.03:13 Referral Information: Evaluation referral is generated by a police gragency: [facility]. The patient was referred for evaluation because pt hadbeen at the [facility] ([facility]) sinceyesterday afternoon. [...] and off'. Pt grreports going to the [facility] center multiple times recently. Ptwas [...] family since coming out as transgendered also [id number]. Pt has an extensive psychiatric hx with multipleh ospitalizations throughout childhood, adolescence, and adulthood. Ptwas recently inpatient on PSYCHIATRIC MHU from February to May 2020. Ptwas discharged on 05/15/20 to supportive housing in [place]. Pt reportsgoing to the crisis center almost [...] a young age. [facility]was [facility] to [facility].Current Outpatient Mental Health Services: Psychiatrist / Agency:[facility] in [place]. Therapist / Agency: [facility]ilda/ Мария. Living Environment: Family / Home Support: Poor. Ptreports no contact with adoptive family. Has minimal contact withbiological parents; states "they don't accept me". The patientcurrently lives "homeless". Had been in supportive housing/ communityresidence in [place].03:24 Patient presents to Emergency Department with the [...] Dr Canela. [facility] Patientreport is given to Malu Bowman RN. Legal Status: Patient's legalstatus will be Emergency: 9.39. Commitment papers are completed. Pthas been provided with a copy of legal status and rights.04:09 DSM-V DX [place] I diagnosis: Bipolar D/O, Unspecified. gr04:09 Insurance Pre-Certification: Not Required. [facility] Admission Criteria: grThe patient is [...] psychoactivemedications or significant dosage adjustments. [facility] Transition of care to Pt will be transferred to MHU by [facility] andsecurity. The patient is not a banking services advisor or dependent.[place] Suicide Severity Rating Scale: Suicidal Ideation Rating 5;Intensity of Ideations Rating 25; Suicidal Behavior Rating 1.Psych:01:51 Subjective: Patient's mood is sad, hopeless, Delusions are denied, rb0Kyifyrvqndoqqi are denied Having thoughts of suicide. Plan forsuicide is to strangle self or overdose on medications. Objective:Patient is cooperative, Speech is normal, Affect is appropriate,Patient has mutilated themselves by superficial cuts to left arm.02:04 Interventions: Removed personal items and placed in bag. Patient jd1vrqrii in hospital gown. Searched person for dangerous [...] armband on for positive identification. Placed in mr4vssj. Bed in low position. Sitter at bedside.Administered Medications:No medications were administeredOutcome:04:14 Decision to Hospitalize by Provider. th405:25 Disposition: Admitted to Psych cm405:25 Condition: stable.05:25 Instructed on need for admit.05:25 Discharge Assessment: Patient verbalized understanding of dispositioninstructions. Patient has no functional deficits.05:47 Patient left the ED. ln5Czogopeivu:Rose Paulino, PSA Nils Patino MD MD dl9IcsqkFortunato humphrey RN RN [id number] Severino, RN RN cm4 Name Value Range Interpretation Code Description Data Stephanie rce(s) Supporting Document(s) ID Date Data Source [id number] 05/16/2020 01:20:[address] DISCHARGE SUMMARYPATIENT NAME: YARELI HATCH MR#: [id number] PHYSICIAN: BOGDAN MACIAS MDAUTHOR: Bogdan Macias MD [...] has been staying in a hotel in [place] aftersigning her self out of [facility] in November of 2019. Pt reports she called a cab herselfto bring her here. Pt states she was inpatient at [facility] for a month and wasdischarged [...] is allergic to Haldol but thedoctor in [facility] had put her on the medication any ways. Pt reports ahistory of bipolar, borderline personality disorder, and gender identitydisorder. Pt has a history of [facility]. Pt reports when recently hada suicide attempt a few days after being dicharged from [facility] last, she statedshe had overdosed on medications [...] [facility] stay with her [facility] for [...] out [place] as she signed herself out from [facility] on November 2019. Patientstated that she [...] well. Onepoint patient was also referred to [facility] and she was rejected by them due toexpressing that they think that the patient has a more behavioral issues andwould not be benefited with inpatient mental health treatment. Later onpatient was staying on the unit as we were waiting for a safe place fordischarge and referral being sent to different places such as [facility], [facility] as well. Later on patient was [...] forward to fill out some paperwork at [facility] as well. She alsoappreciated the service [...] the following new medications:Loratadine* (Claritin*) 10 MG [id number] MILLIGRAM Orally DAILYQty = 14Refills = 1TOPIRAMATE (TOPAMAX) 25 MG FGBOAI84 MILLIGRAM Orally TWICE DAILYQty = 20Refills = 1Fluoxetine* (Prozac*) 20 MG XDNUYPX79 MILLIGRAM Orally DAILYQty = 20Refills = 1HydrOXYzine (Atarax*) 50 MG HHVSZFM64 MILLIGRAM Orally TWICE DAILY as needed for AnxietyQty = 20Refills = 1ARIPIPRAZOLE (ABILIFY MAINTENA) 400 MG SUSER.CSMO809 MILLIGRAM Intramuscularly Y83OQok = 1No RefillsInstruction s:Last IM injection received on May 03, 2020Discharge Activity: As toleratedDischarge diet: Low Fat/Low CholesterolFollow-upFollow up with your Primary care physicianFollow-up with therapist and psychiatrist as recommendedAlso recommended outpatient chemical dependencyReferralsOrdered ReferralsOphthalmology 07/23/20[facility] ([phone])located at [address] in [place] July 23 at 11:30 am.Internal Medicine 06/03/20In person primary care appointment [facility] ([phone]) located at [address] [place] [address] in [place] on June 03 at 2:00 pm with [facility] [place] [address] In person appointment at [facility] ([phone]) locatedat [address] in [place] on May 23 at 2:00 pm with Hilda.Yareli will need to attend thisappointment in order to receive herAbilify Maintenna injection on 05/31.[facility][NOTE 3] [place] [address] In person appointment at [facility] ([phone])located at [address] [place] [address] in [place] May 29 at 11:00 amwith Ruth. Downs will need to attendthis appointment in order to receive herAbilify Maintenna injection on 05/31.DATE SIGNED: 05/16/20 Electronically SignedTIME SIGNED: 1326 BOGDAN MACIAS MD Name Value Range Interpretation Code Description Data Stephanie rce(s) Supporting Document(s) ID Date Data Source [id number] 05/16/2020 09:41:00 AM EST [place], [place] [address]PATIENT NAME: YARELI HATCH Janette Jensen#: [id number] PHYSICIAN: HUBER VELAZQUEZ #: [id number] ADM. DATE: 02/15/20PATIENT : 00 DISCH. DATE: [...] follow-upappointmentDischarge InformationDISCHARGE INFORMATION* [facility] and allowing [facility] toserve [facility]* Our Goal is to provide the highest quality of care.* This discharge information is to help you better understand your diagnosisand medication* Avoid taking ogvp-gci-yarsgsq medicines unless approved by your physician.* Take your medications as prescribed. DO NOT stop any medications unlessapproved first* Weigh yourself daily. Report any gain of 5 lbs in a week* 24 Hour Crisis HOTLINE available: Call Reachout at * Chem. Dependency: Walk in Clinics [place] ([phone]) and [place] ([phone]) anytime Wednesday thru Wednesday 8 to 10am. [facility] ([phone]) anytimeWednesday thru Wednesday 8 to 10am. [facility] ([phone]) Wednesday or Wednesday from 8to 10am (Bring $30 to [facility]) SMOKIN G CESSATION* Smoking is dangerous to your health. It delays the healing process, andworks against your medications. Not smoking will improve your health* Our hospital participates with the Opt-to-Quit program. You will be contactedafter discharge by the [facility] Smoker's Quitline for support with tobaccocessation. You have the option once contacted to refuse this service.* You can also go online to www.Outsell. Free nicotine replacementsare available ___Attention* You should contact your follow up Physician as it is important that you lethim or her check you and report any new or remaining problems. If yourcondition worsens, follow up with your provider or visit our EmergencyDepartment. If you received pain medication, anxiety medications, musclerelaxants, or any medication that causes drowsiness, you cannot operateBreathalEyeshiOwnZones Media Networky, power tools, or drive.Safe ActSafe Act Completed NoiStopiStop completed NoEND ENDDICT: 05/16/20940 Electronically SignedTRANS:05/16/20940 BOGDAN MACIAS MDTRANS BY:DATE SIGNED:05/16/20TIME SIGNED: 941REPORT COPY TO: Name Value Range Interpretation Code Description Data Stephanie rce(s) Supporting Document(s) ID Date Data Source [id number] 05/15/2020 01:17:00 PM KARMEN heaton [facility] [place], [place] [address]CABMLM HEALTH PROGRESS NOTEPATIENT NAME: YARELI HATCH PHYSICIAN: BOGDAN MACIAS MDAUTHOR: Colleen SMITH,Sarahy. DATE: 02/15/20 MR#: [id number] NOTE DATE: 05/15/20 RM#: [id number] TIME: 1319 [...] rce(s) Supporting Document(s) ID Date Data Source [id number] 05/14/2020 11:49:00 AM [place] [address]MENTAL HEALTH PROGRESS NOTEPATIENT NAME: YARELI HATCH PHYSICIAN: BOGDAN MACIAS MDAUTHOR: Colleen SMITH,DhruvADM. DATE: 02/15/20 MR#: [id number] NOTE DATE: 05/14/20 #: 317EVALUATION TIME: 1151 is 19-year-old female, currently single, lives in a motel,past psych history of bipolar disorderCC/Hx Present IllnessThe patient was referred for evaluation because pt having suicidal ideations.Events Since Last EntryPatient reporting feeling somewhat better, she is mostly focused on herdischarge plan and she is about to be discharged this prior to going to [facility]. Patient denied having any suicidal, [...] rce(s) Supporting Document(s) ID Date Data Source [id number] 05/13/2020 01:19:00 PM KARMEN Rauschxtreal [place] [id number] HEALTH PROGRESS NOTEPATIENT NAME: YARELI HATCH PHYSICIAN: BOGDAN MACIAS, MDAUTHOR: Colleen SMITH,DhruvAPUJA. DATE: 02/15/20 MR#: [id number] NOTE DATE: 05/13/20 RM#: [id number] TIME: 1322 [...] QHSPRN PRN POExaminationMusculoskeletalGait normalStation normalResultsLaboratory DataRecent Labs-24 hours/[id number]-64 (CORDELL) PendingResults Ordered/ReviewedLab Tests reviewedAssessment/PlanDiagnosis1. Major depressive disorderStatus Acute2. Bipolar affective disorder3. Borderline personality disor derCoordination of care provided with nursing staff, treatment team, social work,physician's, familyRisk/benefits discussed side effectsJustification for continued stay danger to self/othersDATE SIGNED: 05/13/20 Electronically SignedTIME SIGNED: 1322 BOGDAN MACIAS MD Name Value Range Interpretation Code Description Data Stephanie rce(s) Supporting Document(s) ID Date Data Source [id number] 05/13/2020 11:14:00 AM EST [facility] Name Value Range Interpretation Code Description Data Stephanie rce(s) Supporting Document(s) SARS coronavirus 2 RNA [facility] This lab [facility] and reported by [facility]. ID Date Data Source [id number] 05/14/2020 04:07:00 PM EST [facility] Performed at: RN - [facility] [address] [id number] Director: Samira Cortez MD, Phone: [phone] Name Value Range Interpretation Code Description Data Stephanie rce(s) Supporting Document(s) SARS-CoV-2, CORDELL Not Detected Not Detected [facility] This nucleic acid amplification test was [...] SARS-CoV-2 virusand/or diagnosis of COVID-19 infection under bdcwrlo050(b)(1) of the Act, 21 U.S.C. 360bbb-3(b) (1), [...] Acid Amplification (CORDELL) ID Date Data Source [id number] 05/10/2020 11:10:00 AM EDT [address] PROGRESS NOTEPATIENT NAME: YARELI HATCH [place] PHYSICIAN: BOGDAN MACIAS MDAUTHOR: Colleen SMITH,DhruvADM. DATE: 02/15/20 MR#: [id number] NOTE DATE: 05/10/20 RM#: [id number] TIME: 1113 [...] QHSPRN PRN POExaminationMusculoskeletalGait normalStation normalResultsLaboratory DataRecent Labs-24 hours10/840215NewopbpabMstpqw (136 - 147 mmol/L) 141Potassium (3.5 - [...] Name Value Range Interpretation Code Description Data [facility] rce(s) Supporting Document(s) ID Date Data Source [id number] 05/09/2020 05:28:00 PM EDT [facility] Name Value Range Interpretation Code Description Data Stephanie rce(s) Supporting Document(s) GLU 80 mg/dL 70-110 [facility] Patients taking Sulfasalazine may have f alsely depressedGlucose levels. Patients taking Sulfapyridine may havefalsely elevated Glucose levels. Patients should be drawnfor Glucose before the initial administration of eitherdrug. BUN 12 mg/dL 7-23 [facility] CRE 0.502 mg/dL 0.500-1.300 [facility] CHLORIDE 109 mmol/L 99-110 [facility] NA 141 mmol/L 136-147 [facility] POTASSIUM 4.5 mmol/L 3.5-5.1 [facility] TCO2 26 mmol/L 20-33 [facility] ANION GAP 10.5 10.0-20.0 [facility] CA 9.1 mg/dL 8.3-10.7 [facility] ALKALINE PHOS 142 U/L 82-169 [facility] TP 7.7 g/dL 6.0-7.8 [facility] ALB 4.0 g/dL 3.5-5.0 [facility] ESRD Dialysis patient Albumin reference range: 2.9-4.4 g/dL GL 3.7 g/dL 2.3-3.5 [facility] A/G 1.1 1.0-2.5 [facility] T. BILIRUBIN 0.4 mg/dL 0.1-1.1 [facility] The Dimension Lyman Total Bilirubin is n ot recommended forpatients undergoing treatment with eltrombopag (Promacta)due to the potential for falsely elevated results. ALTI 57 U/L 6-54 [facility] Patients taking Sulfasalazine and/or Sul fapyridine may havefalsely depressed ALT levels. Patients should be drawn forALT before the initial administration of either drug. AST 30 U/L 6-38 [facility] Patients taking Sulfasalazine and/or Sul fapyridine may havefalsely depressed AST levels. Patients should be drawn forAST before the initial administration of either drug. ID Date Data Source [id number] 05/09/2020 05:00:00 PM EDT [facility] Name Value Range Interpretation Code Description Data Stephanie rce(s) Supporting Document(s) WBC 7.62 x10E3/uL 4.0-10.5 [facility] RBC 4.40 x10E6/uL 4.20-5.40 [facility] Hemoglobin 12.7 g/dL 12.0-16.0 [facility] Hematocrit 38.7 % 37.0-47.0 [facility] MCV 88.0 fL 81.0-99.0 [facility] MCH 28.9 pg 27.0-31.0 [facility] MCHC 32.8 g/dL 32.7-35.6 [facility] RDW 12.7 % 11.5-14.0 [facility] Platelet count 254 x10E3/uL 150-450 [facility] ital MPV 9.9 fl 6.9-9.5 [facility] Neutrophils 58.1 % 34-64 [facility] Lymphocytes 34.1 % 25-45 [facility] Monocytes 6.4 % 1.7-10.6 [facility] Eosinophils 0.9 % 0.4-7.0 [facility] Basophils 0.1 % 0.1-2.0 [facility] Imm. Gran. 0.4 % 0.1-2.0 [facility] Abs. Neutro. 4.42 x10E3/uL 1.2-7.6 [facility] Abs. Lymph. 2.60 x10E3/uL 1.0-3.5 [facility] Abs. [place]. 0.49 x10E3/uL 0.1-1.0 [facility] Abs. Eosin. 0.07 x10E3/uL 0.1-0.7 [facility] Abs. Baso. 0.01 x10E3/uL 0.0-0.1 [facility] Abs. Imm. Gran. 0.03 x10E3/uL 0.0-0.1 N [facility] spital ANRBC% 0 % 0 [facility] ID Date Data Source [id number] 05/09/2020 01:04:00 PM EDT [address] HEALTH PROGRESS NOTEPATIENT NAME: YARELI HATCH PHYSICIAN: BOGDAN MACIAS MDAUTHOR: Colleen SMITH,DhruvADM. DATE: 02/15/20 MR#: [id number] NOTE DATE: 05/09/20 RM#: [id number] TIME: 1307 [...] rce(s) Supporting Document(s) ID Date Data Source [id number] 05/08/2020 12:46:00 PM EDT [place] [address]MENTAL HEALTH PROGRESS NOTEPATIENT NAME: YARELI HATCH PHYSICIAN: BOGDAN MACIAS MDAUTHOR: Colleen SMITH,DhruvADM. DATE: 02/15/20 MR#: [id number] NOTE DATE: 05/08/20 RM#: [id number] TIME: 1248 [...] rce(s) Supporting Document(s) ID Date Data Source [id number] 05/07/2020 01:49:00 PM EDT [facility] [address] PROGRESS NOTEPATIENT NAME: YARELI HATCH PHYSICIAN: BOGDAN MACIAS MDAUTHOR: Colleen SMITH,DhruvAPUJA. DATE: 02/15/20 MR#: [id number] NOTE DATE: 05/07/20 RM#: [id number] TIME: 1351 [...] rce(s) Supporting Document(s) ID Date Data Source [id number] 05/06/2020 01:32:00 PM EDT [place] [id number] HEALTH PROGRESS NOTEPATIENT NAME: YARELI HATCH PHYSICIAN: BOGDAN MACIAS MDAUTHOR: Colleen SMITH,DhruvADM. DATE: 02/15/20 MR#: [id number] NOTE DATE: 05/06/20 RM#: [id number] TIME: 1335 is 19-year-old female, currently single, lives in a motel,past psych history of bipolar disorderCC/Hx Present IllnessThe patient was referred for evaluation because pt having suicidal ideations.Events Since Last EntryPatient was seen along with sitter as well as college scouting coordinator on otherside, patient was resting comfortable, [...] rce(s) Supporting Document(s) ID Date Data Source [id number] 05/05/2020 11:49:00 PM EDT [address] [id number] NOTE FOLLOW UPPATIENT NAME: MAMIEYARELI CAPELLAN PHYSICIAN: BOGDAN MACIAS, MDAUTHOR: Dori SMITH,Lea. DATE: 02/15/20 MR#: [id number] NOTE DATE: 05/05/20 RM#: [id number] TIME: 13 [...] rce(s) Supporting Document(s) ID Date Data Source [id number] 05/05/2020 02:12:00 AM EDT [facility] Name Value Range Interpretation Code Description Data Stephanie rce(s) Supporting Document(s) MAGNESIUM 2.2 mg/dL 1.6-2.6 [facility] ID Date Data Source [id number] 05/05/2020 02:12:00 AM EDT [facility] Name Value Range Interpretation Code Description Data Stephanie rce(s) Supporting Document(s) ALLEN 4.5 mg/dL 2.5-4.5 [facility] ID Date Data Source [id number] 05/05/2020 02:12:00 AM EDT [facility] Name Value Range Interpretation Code Description Data Stephanie rce(s) Supporting Document(s) GLU 97 mg/dL 70-110 [facility] Patients taking Sulfasalazine may have f alsely depressedGlucose levels. Patients taking Sulfapyridine may havefalsely elevated Glucose levels. Patients should be drawnfor Glucose before the initial administration of eitherdrug. BUN 18 mg/dL 7-23 [facility] CRE 0.571 mg/dL 0.500-1.300 [facility] CHLORIDE 109 mmol/L 99-110 [facility] NA 142 mmol/L 136-147 [facility] POTASSIUM 4.3 mmol/L 3.5-5.1 [facility] TCO2 27 mmol/L 20-33 [facility] ANION GAP 10.3 10.0-20.0 [facility] CA 8.7 mg/dL 8.3-10.7 [facility] ALKALINE PHOS 126 U/L 82-169 [facility] TP 7.1 g/dL 6.0-7.8 [facility] ALB 3.6 g/dL 3.5-5.0 [facility] ESRD Dialysis patient Albumin reference range: 2.9-4.4 g/dL GL 3.5 g/dL 2.3-3.5 [facility] A/G 1.0 1.0-2.5 [facility] T. BILIRUBIN 0.3 mg/dL 0.1-1.1 [facility] The Dimension Lyman Total Bilirubin is n ot recommended forpatients undergoing treatment with eltrombopag (Promacta)due to the potential for falsely elevated results. ALTI 47 U/L 6-54 [facility] Patients taking Sulfasalazine and/or Sul fapyridine may havefalsely depressed ALT levels. Patients should be drawn forALT before the initial administration of either drug. AST 18 U/L 6-38 [facility] Patients taking Sulfasalazine and/or Sul fapyridine may havefalsely depressed AST levels. Patients should be drawn forAST before the initial administration of either drug. ID Date Data Source [id number] 05/05/2020 01:52:00 AM EDT [facility] Name Value Range Interpretation Code Description Data Stephanie rce(s) Supporting Document(s) WBC 8.06 x10E3/uL 4.0-10.5 [facility] RBC 4.09 x10E6/uL 4.20-5.40 [facility] Hemoglobin 11.8 g/dL 12.0-16.0 [facility] Hematocrit 36.6 % 37.0-47.0 [facility] MCV 89.5 fL 81.0-99.0 [facility] MCH 28.9 pg 27.0-31.0 [facility] MCHC 32.2 g/dL 32.7-35.6 [facility] RDW 12.6 % 11.5-14.0 [facility] Platelet count 226 x10E3/uL 150-450 [facility] ital MPV 9.6 fl 6.9-9.5 [facility] Neutrophils 51.7 % 34-64 [facility] Lymphocytes 38.1 % 25-45 [facility] Monocytes 8.4 % 1.7-10.6 [facility] Eosinophils 1.1 % 0.4-7.0 [facility] Basophils 0.2 % 0.1-2.0 [facility] Imm. Gran. 0.5 % 0.1-2.0 [facility] Abs. Neutro. 4.16 x10E3/uL 1.2-7.6 [facility] Abs. Lymph. 3.07 x10E3/uL 1.0-3.5 [facility] Abs. [place]. 0.68 x10E3/uL 0.1-1.0 [facility] Abs. Eosin. 0.09 x10E3/uL 0.1-0.7 [facility] Abs. Baso. 0.02 x10E3/uL 0.0-0.1 [facility] Abs. Imm. Gran. 0.04 x10E3/uL 0.0-0.1 [facility] ANRBC% 0 % 0 [facility] ID Date Data Source [id number] 05/05/2020 12:57:00 AM EDT [facility] [address] [id number] NOTE FOLLOW UPPATIENT NAME: YARELI HATCH PHYSICIAN: BOGDAN MACIAS MDAUTHOR: Dori SMITH,[facility]. DATE: 02/15/20 MR#: [id number] NOTE DATE: 05/05/20 RM#: [id number] TIME: 0117 [...] rce(s) Supporting Document(s) ID Date Data Source [id number] 05/03/2020 01:24:00 PM EDT [address] HEALTH PROGRESS NOTEPATIENT NAME: YARELI HATCH PHYSICIAN: BOGDAN MACIAS MDAUTHOR: Colleen SMITH,DhruvADM. DATE: 02/15/20 MR#: [id number] NOTE DATE: 05/03/20 RM#: [id number] TIME: 1325 [...] rce(s) Supporting Document(s) ID Date Data Source [id number] 05/02/2020 01:53:00 PM EDT [facility] [address], [place] [address] HEALTH PROGRESS NOTEPATIENT NAME: YARELI HATCH PHYSICIAN: BOGDAN MACIAS MDAUTHOR: Colleen SMITH,Sarahy. DATE: 02/15/20 MR#: [id number] NOTE DATE: 05/02/20 RM#: [id number] TIME: 1355 [...] treatment plan, discussed with the [facility]reg[facility] as well as increasing further Topamax [...] rce(s) Supporting Document(s) ID Date Data Source [id number] 05/01/2020 01:01:00 PM EDT [place] [id number] HEALTH PROGRESS NOTEPATIENT NAME: YARELI HATCH PHYSICIAN: BOGDAN MACIAS MDAUTHOR: Colleen SMITH,DhruvADM. DATE: 02/15/20 MR#: [id number] NOTE DATE: 05/01/20 RM#: [id number] TIME: 1303 [...] rce(s) Supporting Document(s) ID Date Data Source [id number] 04/30/2020 01:52:00 PM EDT [address] [id number] HEALTH PROGRESS NOTEPATIENT NAME: YARELI HATCH PHYSICIAN: BOGDAN MACIAS MDAUTHOR: Colleen SMITH,DhruvADM. DATE: 02/15/20 MR#: [id number] NOTE DATE: 04/30/20 RM#: [id number] TIME: 1355 [...] rce(s) Supporting Document(s) ID Date Data Source [id number] 04/29/2020 11:16:00 AM EDT [facility] PROGRESS NOTEPATIENT NAME: YARELI HATCH PHYSICIAN: BOGDAN MACIAS MDAUTHOR: Colleen SMITH,DhruvADM. DATE: 02/15/20 MR#: [id number] NOTE DATE: 04/29/20 RM#: [id number] TIME: 1120 [...] discharge plan regarding going to [facility] as well.Patient denied having any medication [...] rce(s) Supporting Document(s) ID Date Data Source [id number] 04/26/2020 01:20:00 PM EDT [address] HEALTH PROGRESS NOTEPATIENT NAME: YARELI HATCH PHYSICIAN: BOGDAN MACIAS MDAUTHOR: Colleen SMITH,DhruvADM. DATE: 02/15/20 MR#: [id number] NOTE DATE: 04/26/20 RM#: [id number] TIME: 1323 [...] current treatment [facility] which [facility] patient to be called [...] rce(s) Supporting Document(s) ID Date Data Source [id number] 04/25/2020 01:43:00 PM EDT [address] HEALTH PROGRESS NOTEPATIENT NAME: YARELI HATCH PHYSICIAN: BOGDAN MACIAS MDAUTHOR: Colleen SMITH,DhruvADM. DATE: 02/15/20 MR#: [id number] NOTE DATE: 04/25/20 RM#: [id number] TIME: 1345 [...] rce(s) Supporting Document(s) ID Date Data Source [id number] 04/24/2020 02:01:00 PM EDT [facility] PROGRESS NOTEPATIENT NAME: YARELI HATCH PHYSICIAN: BOGDAN MACIAS MDAUTHOR: Colleen SMITH,DhruvADM. DATE: 02/15/20 MR#: [id number] NOTE DATE: 04/24/20 RM#: [id number] TIME: 1404 [...] rce(s) Supporting Document(s) ID Date Data Source [id number] 04/23/2020 01:23:00 PM EDT [address] HEALTH PROGRESS NOTEPATIENT NAME: YARELI HATCH PHYSICIAN: BOGDAN MACIAS MDAUTHOR: Colleen SMITH,Sarahy. DATE: 02/15/20 MR#: [id number] NOTE DATE: 04/23/20 #: 317EVALUATION TIME: 1326 [...] patient later on agreedfor further treatment to [facility] as well. Patient also reporting medicationsworking okay, [...] treatment plan, discussed with the [facility]reg[facility], continuing current medication [...] rce(s) Supporting Document(s) ID Date Data Source [id number] 04/22/2020 09:56:00 AM EDT [address] HEALTH PROGRESS NOTEPATIENT NAME: YARELI HATCH PHYSICIAN: BOGDAN MACIAS MDAUTHOR: Pasquale WHITE,Ana. DATE: 02/15/20 MR#: [id number] NOTE DATE: 04/22/20 RM#: [id number] TIME: 1008 [...] (Clotrimazole) 0 DIRECTED TOPNasal Lubricant ([place]) 0 Q3HPRN PRN NASALExaminationMusculoskeletalGait normalStation normalMental Status [...] rce(s) Supporting Document(s) ID Date Data Source [id number] 04/19/2020 01:13:00 PM EDT [place] [address]MENTAL HEALTH PROGRESS NOTEPATIENT NAME: YARELI HATCH PHYSICIAN: BOGDAN MACIAS MDAUTHOR: Colleen SMITH,DhruvADM. DATE: 02/15/20 MR#: [id number] NOTE DATE: 04/19/20 RM#: [id number] TIME: 1315 [...] (Clotrimazole) 0 DIRECTED TOPNasal Lubricant ([place]) 0 Q3HPRN PRN NASALExaminationMusculoskeletalGait normalStation normalResultsResults Ordered/ReviewedLab Tests reviewedAssessment/PlanDiagnosis1. Major depressive disorderStatus Acute2. Suicide attemptStatus Acute3. Bipolar affective disorderCoordination of care provided with nursing staff, treatment teamRisk/benefits discussed side effectsDATE SIGNED: 04/19/20 Electronically SignedTIME SIGNED: 1315 BOGDAN MACIAS MD Name Value Range Interpretation Code Description Data Stephanie rce(s) Supporting Document(s) ID Date Data Source [id number] 04/18/2020 12:59:00 PM EDT Joe[facility] Douglas [address] [address] HEALTH PROGRESS NOTEPATIENT NAME: YARELI HATCH PHYSICIAN: BOGDAN MACIAS, MDAUTHOR: Colleen SMITH,Sarahy. DATE: 02/15/20 MR#: [id number] NOTE DATE: 04/18/20 RM#: [id number] TIME: 1301 [...] (Clotrimazole) 0 DIRECTED TOPNasal Lubricant (Saline Nasal Glen) 0 Q3HPRN PRN NASALExaminationMusculoskeletalGait normalStation normalResultsLaboratory DataRecent [...] rce(s) Supporting Document(s) ID Date Data Source [id number] 04/17/2020 07:50:00 PM EDT [facility] [place] Name Value Range Interpretation Code Description Data Stephanie rce(s) Supporting Document(s) LIP 60.0 U/L 73-393 L [facility] ID Date Data Source [id number] 04/17/2020 07:50:00 PM EDT [facility] [place] Name Value Range Interpretation Code Description Data [facility](s) Supporting Document(s) GLU 113 mg/dL 70-110 H [facility] Patients taking Sulfasalazine may have f alsely depressedGlucose levels. Patients taking Sulfapyridine may havefalsely elevated Glucose levels. Patients should be drawnfor Glucose before the initial administration of eitherdrug. BUN 17 mg/dL 7-23 [facility] CRE 0.692 mg/dL 0.500-1.300 [facility] CHLORIDE 109 mmol/L 99-110 [facility] NA 141 mmol/L 136-147 [facility] POTASSIUM 3.9 mmol/L 3.5-5.1 [facility] TCO2 24 mmol/L 20-33 [facility] ANION GAP 11.9 10.0-20.0 [facility] CA 9.1 mg/dL 8.3-10.7 [facility] ALKALINE PHOS 148 U/L 82-169 [facility] TP 8.0 g/dL 6.0-7.8 H [facility] ALB 4.3 g/dL 3.5-5.0 [facility] ESRD Dialysis patient Albumin reference range: 2.9-4.4 g/dL GL 3.7 g/dL 2.3-3.5 H [facility] A/G 1.2 1.0-2.5 [facility] T. BILIRUBIN 0.3 mg/dL 0.1-1.1 [facility] The Dimension [facility]yman Total Bilirubin is n ot recommended forpatients undergoing treatment with eltrombopag (Promacta)due to the potential for falsely elevated results. ALTI 45 U/L 6-54 [facility] Patients taking Sulfasalazine and/or Sul fapyridine may havefalsely depressed ALT levels. Patients should be drawn forALT before the initial administration of either drug. AST 26 U/L 6-38 [facility] Patients taking Sulfasalazine and/or Sul fapyridine may havefalsely depressed AST levels. Patients should be drawn forAST before the initial administration of either drug. ID Date Data Source [id number] 04/17/2020 07:17:00 PM EDT [facility] Name Value Range Interpretation Code Description Data Stephanie rce(s) Supporting Document(s) HbA1C 4.70 % 3.8-5.6 [facility] Suggested Diagnosis HbA1c% Diabet ic >/= 6.5Prediabetes 5.7%-6.4%Normal < 5.7% ID Date Data Source [id number] 04/17/2020 06:39:00 PM EDT [facility] [place] Name Value Range Interpretation Code Description Data Stephanie rce(s) Supporting Document(s) WBC 6.99 x10E3/uL 4.0-10.5 [facility] RBC 4.51 x10E6/uL 4.20-5.40 [facility] Hemoglobin 13.0 g/dL 12.0-16.0 [facility] Hematocrit 39.4 % 37.0-47.0 [facility] MCV 87.4 fL 81.0-99.0 [facility] MCH 28.8 pg 27.0-31.0 [facility] MCHC 33.0 g/dL 32.7-35.6 [facility] RDW 12.7 % 11.5-14.0 [facility] Platelet count 260 x10E3/uL 150-450 [facility] ital MPV 9.5 fl 6.9-9.5 [facility] Neutrophils 53.5 % 34-64 [facility] Lymphocytes 38.1 % 25-45 [facility] Monocytes 6.9 % 1.7-10.6 [facility] Eosinophils 0.9 % 0.4-7.0 N [facility] Basophils 0.3 % 0.1-2.0 N [facility] Imm. Gran. 0.3 % 0.1-2.0 [facility] Abs. Neutro. 3.75 x10E3/uL 1.2-7.6 N [facility] Abs. Lymph. 2.66 x10E3/uL 1.0-3.5 [facility] Abs. [place]. 0.48 x10E3/uL 0.1-1.0 N [facility] Abs. Eosin. 0.06 x10E3/uL 0.1-0.7 L [facility] Abs. Baso. 0.02 x10E3/uL 0.0-0.1 [facility] Abs. Imm. Gran. 0.02 x10E3/uL 0.0-0.1 [facility] spital ANRBC% 0 % 0 [facility] ID Date Data Source [id number] 04/17/2020 05:59:00 PM EDT [place], [place] [address]CONSULT REPORTPATIENT NAME: YARELI HATCH MR#: [id number] PHYSICIAN: ANGELA VELAZQUEZONSULTING PHYSICIAN: Theresa Chowdhury DATE: [...] judgement, abnormal insight, anxiousData ReviewLaboratory Datapending.ImagingEXAM# TYPE/EXAM [id number] US/U/S COMPLETE UPPER ABDOMENDATE OF EXAMINATION: 04/17/2020 [...] codePlan discussed with patientCase discussed with case specialist, nursing staffDATE SIGNED: 04/17/20 Electronically SignedTIME SIGNED: 180 THERES[facility] COOPER Name Value Range Interpretation Code Description Data Stephanie rce(s) Supporting Document(s) ID Date Data Source [id number] 04/17/2020 01:29:00 PM EDT [address] HEALTH PROGRESS NOTEPATIENT NAME: YARELI HATCH PHYSICIAN: BOGDAN MACIAS, JESSICAUTHOR: Colleen SMITH,Sarahy. DATE: 02/15/20 MR#: [id number] NOTE DATE: 04/17/20 #: [id number] TIME: 1331 [...] she just wanted to have his number from[employer] which we discussed with the patient about [...] (Clotrimazole) 0 DIRECTED TOPNasal Lubricant (Saline Nasal Glen) 0 Q3HPRN PRN NASALExaminationMusculoskeletalGait normalStation normalResultsResults Ordered/ReviewedLab Tests reviewedAssessment/PlanDiagnosis1. Bipolar disorder, manicCoordination of care provided with nursing staff, treatment teamRisk/benefits discussed side effectsJustification for continued stay danger to self/others, behavior intolerableDATE SIGNED: 04/17/20 Electronically SignedTIME SIGNED: 1330 BOGDAN MACIAS MD Name Value Range Interpretation Code Description Data Stephanie rce(s) Supporting Document(s) ID Date Data Source [id number] 04/17/2020 01:00:00 PM EDT [facility] Exam Number: [id number] OF EXAMINATIO N: 04/17/2020 8:00 EDTU/S COMPLETE [...] rce(s) Supporting Document(s) ID Date Data Source [id number] 04/16/2020 01:31:00 PM EDT [facility] [place] [place], [place] [address] HEALTH PROGRESS NOTEPATIENT NAME: YARELI HATCH PHYSICIAN: BOGDAN MACIAS MDAUTHOR: Colleen SMITH,DhruvADM. DATE: 02/15/20 MR#: [id number] NOTE DATE: 04/16/20 RM#: [id number] TIME: 1336 [...] (Clotrimazole) 0 DIRECTED TOPNasal Lubricant (Saline Nasal Glen) 0 Q3HPRN PRN NASALIbuprofen (Motrin) 600 MG [...] leted Unknown if ever smoked [facility]) Smoking 06/10/2021 12:01:00 AM EST Daily Smoker completed Daily S [facility] Smoking 06/03/2021 12:00:00 AM EST Unknown if ever smoked comp leted Unknown if ever smoked [facility] ([facility]) Alcohol intake 04/05/2021 12:00:00 AM EDT Ex-drinker (finding) comp leted Ex- drinker (finding) [facility] Smoking 03/20/2021 12:00:00 AM EDT Unknown if ever smoked comp leted Unknown if ever smoked [facility] ([facility]) Alcohol intake 03/13/2021 12:00:00 AM EDT Ex-drinker (finding) comp leted Ex- drinker (finding) [facility] Tobacco use and exposure 03/13/2021 12:00:00 AM EDT Never used co mpleted Never used [facility] Cigarettes smoked current (pack per day) - Reported 03/13/20 12:00:00 AM EDT UNK completed [facility] Smoking 03/13/2021 12:00:00 AM EDT Current every day smoker co mpleted Current every day smoker [facility] Tobacco use and exposure 02/21/2021 12:00:00 AM EDT Smokeless to bacco non-user completed Smokeless tobacco non-user [facility] Cigarette pack-years 02/21/2021 12:00:00 AM EDT UNK completed [facility] Cigarettes smoked current (pack per day) - Reported 02/22/20 12:00:00 AM EDT UNK completed 0.5 [facility] Smoking 02/21/2021 12:00:00 AM EDT Smokes tobacco daily comple hellen Smokes tobacco daily [facility] Alcohol intake 02/21/2021 12:00:00 AM EDT Ex-drinker (finding) comp leted Ex- drinker (finding) [facility] 12/22/2020 12:00:00 AM EDT Cigarette Smoker completed Cig arette Smoker [facility] 12/22/2020 12:00:00 AM EDT Smokes tobacco daily comple hellen Smokes tobacco daily [facility] Smoking 11/13/2020 12:00:00 AM EDT Unknown if ever smoked comp leted Unknown if ever smoked [facility] ([facility]) Smoking 08/27/2020 12:00:00 AM EST Unknown if ever smoked comp leted Unknown if ever smoked [facility] ([facility]) Smoking 08/23/2020 12:00:00 AM EST Unknown if ever smoked comp leted Unknown if ever smoked [facility] ([facility]) Smoking 06/24/2020 12:00:00 AM EST Unknown if ever smoked comp leted Unknown if ever smoked [facility] ([facility]) Vital Signs ID Date Data Source UNK Name Value Range Interpretation Code Description Data Source(s) Systolic blood pressure 120 mm[Hg] Normal (applies t o non-numeric results) 120 mm[Hg] [facility] Diastolic blood pressure 80 mm[Hg] Normal (applies to non-numeric results) 80 mm[Hg] [facility] Heart rate 80 min Normal (applies to non-numeric resul ts) 80 min [facility] Respiratory rate 20 min Normal (applies to non-numeric results) 20 min [facility] Deprecated Oxygen saturation in Capillary blood by Oximetry 99 % Normal (applies to non-numeric results) 99 % [facility] Body temperature 36.8 lindy Normal (applies to non-numeric results) 36.8 lindy [facility] Body weight Measured 230 [lb_av] Normal (applies to n on-numeric results) 230 [lb_av] [facility] Body mass index (BMI) [Ratio] 37.1 kg/m2 No rmal (applies to non-numeric results) 37.1 kg/m2 [facility] Body height 167.01260920911122 cm Normal (applies to non-numeric results) 167.86593805674553 cm [facility] Systolic blood pressure 129 mm[Hg] 129 mm[Hg] [facility] Diastolic blood pressure 90 mm[Hg] 90 mm[Hg] [facility] Heart rate 72 /min 72 /min [facility] Respiratory rate 16 /min 16 /min [facility] Oxygen saturation in Arterial blood by Pulse oximetry 95 % 95 % [facility] Body temperature 36.89 Lindy 36.89 Lindy [facility] Body weight 137.077 kg 137.077 kg [facility] Body mass index (BMI) [Ratio] 48.78 kg/m2 48.78 kg/m2 [facility] Body height 167.6 cm 167.6 cm [facility] ID Date Data Source [id number] 06/10/2021 08:11:18 PM EST [facility] Name Value Range Interpretation Code Description Data Source(s) TRANSFER FROM [facility] ID Date Data Source [id number] 05/19/2021 01:44:00 PM EST [facility] Name Value Range Interpretation Code Description Data Source(s) WEIGHT 104 kilos 104 kilos [facility] HEIGHT 167.64 centimeters 167.64 centimeter [facility] ID Date Data Source [id number] 05/14/2021 05:46:00 PM EDT [facility] Name Value Range Interpretation Code Description Data Source(s) WEIGHT 104.545 kilos 104.545 kilos [facility] HEIGHT 167.64 centimeters 167.64 centimeter [facility] ID Date Data Source [id number] 05/05/2021 08:15:00 PM EDT [facility] Name Value Range Interpretation Code Description Data Source(s) Weight Measurement Method 8 8 [facility] Weight 3680 3680 [facility] pital Temperature Source 7 7 [facility] Temperature 99.1 99.1 [facility] spital Respiratory Effort 1 1 [facility] Respiratory Rate 18 18 [facility] Pulse Assessment Method 4 4 [facility] Pulse Rate 66 66 [facility] Height 66 66 [facility] pital Blood Pressure 128/55 128/55 [facility] ID Date Data Source [id number] 06/10/2021 02:10:00 AM EST [facility] Name Value Range Interpretation Code Description Data Source(s) WEIGHT 104 kilos 104 kilos [facility] HEIGHT 167.64 centimeters 167.64 centimeter [facility] ID Date Data Source [id number] 05/01/2021 09:46:00 AM EDT [facility] Name Value Range Interpretation Code Description Data Source(s) Weight Measurement Method 8 8 [facility] Weight 3668.492 3668.492 [facility] pital Temperature 98.4 98.4 [facility] spital Respiratory Rate 16 16 [facility] Pulse Assessment Method 4 4 [facility] Pulse Rate 68 68 [facility] 66 66 [facility] Blood Pressure 113/59 113/59 [facility] Weight Measurement Method 8 8 [facility] Weight 3668.492 3668.492 [facility] pital Height 66 66 [facility] pital ID Date Data Source [id number] 05/01/2021 01:52:00 AM EDT [facility] Name Value Range Interpretation Code Description Data Source(s) Weight Measurement Method 8 8 [facility] Weight 3679.991 3679.991 [facility] pital Respiratory Effort 1 1 [facility] Respiratory Rate 18 18 [facility] Height 66 66 [facility] pital Weight Measurement Method 8 8 [facility] Weight 3679.991 3679.991 [facility] pital Respiratory Effort 1 1 [facility] Respiratory Rate 18 18 [facility] Height 66 66 [facility] pital ID Date Data Source [id number] 05/07/2021 10:54:00 AM EDT [facility] Name Value Range Interpretation Code Description Data Source(s) Weight Measurement Method 8 8 [facility] Weight 3680 3680 [facility] pital Temperature Source 7 7 [facility] Temperature 98.8 98.8 [facility] spital Respiratory Effort 1 1 [facility] Respiratory Rate 18 18 [facility] Pulse Assessment Method 4 4 [facility] Pulse Rate 103 103 [facility] pital Height 66 66 [facility] pital Blood Pressure 162/60 162/60 [facility] ID Date Data Source [id number] 06/03/2021 02:08:00 AM EST [facility] Name Value Range Interpretation Code Description Data Source(s) WEIGHT 150 kilos 150 kilos [facility] HEIGHT 172.72 centimeters 172.72 centimeter [facility] ID Date Data Source [id number] 05/27/2021 02:09:00 AM EST [facility] Name Value Range Interpretation Code Description Data Source(s) WEIGHT 136.6 kilos 136.6 kilos [facility] HEIGHT 167.64 centimeters 167.64 centimeter [facility] WEIGHT 303 kilos 303 kilos [facility] HEIGHT 167.64 centimeters 167.64 centimeter [facility] ID Date Data Source [id number] 04/24/2021 11:09:00 AM EDT [facility] Name Value Range Interpretation Code Description Data Source(s) Weight Measurement Method 8 8 [facility] Weight 3680 3680 [facility] pital Temperature Source 7 7 [facility] Temperature 98.0 98.0 [facility] Respiratory Effort 1 1 [facility] Respiratory Rate 18 18 [facility] Pulse Assessment Method 4 4 [facility] Pulse Rate 88 88 [facility] pital Height 66 66 [facility] pital Blood Pressure 147/57 147/57 [facility] ID Date Data Source [id number] 04/28/2021 04:53:00 PM EDT [facility] Name Value Range Interpretation Code Description Data Source(s) Weight Measurement Method 8 8 [facility] Weight 3679.074 3679.074 [facility] pital Temperature Source 7 7 [facility] Temperature 98.2 98.2 [facility] Respiratory Effort 1 1 [facility] Respiratory Rate 16 16 [facility] Pulse Assessment Method 4 4 [facility] Pulse Rate 80 80 [facility] pital Height 66 66 [facility] pital Blood Pressure 132/72 132/72 [facility] ID Date Data Source [id number] 04/16/2021 12:24:00 PM EDT [facility] Name Value Range Interpretation Code Description Data Source(s) Weight Measurement Method 8 8 [facility] Weight 3680 3680 [facility] pital Temperature Source 7 7 [facility] Temperature 98.1 98.1 [facility] Respiratory Effort 1 1 [facility] Respiratory Rate 16 16 [facility] Pulse Assessment Method 4 4 [facility] Pulse Rate 98 98 [facility] Height 66 66 [facility] pital Blood Pressure 111/58 111/58 [facility] Weight Measurement Method 8 8 [facility] Weight 3680 3680 [facility] pital Temperature Source 7 7 [facility] Temperature 98.1 98.1 [facility] Respiratory Effort 1 1 [facility] Respiratory Rate 16 16 [facility] Pulse Assessment Method 4 4 [facility] Pulse Rate 98 98 [facility] pital Height 66 66 [facility] pital Blood Pressure 111/58 111/58 [facility] ID Date Data Source [id number] 04/19/2021 01:44:00 AM EDT [facility] Name Value Range Interpretation Code Description Data Source(s) WEIGHT 105 kilos 105 kilos [facility] HEIGHT 167.64 centimeters 167.64 centimeter [facility] ID Date Data Source [id number] 04/19/2021 01:44:00 AM [facility] Name Value Range Interpretation Code Description Data Source(s) WEIGHT 131 kilos 131 kilos [facility] HEIGHT 170.18 centimeters 170.18 centimeter [facility] ID Date Data Source [id number] 05/11/2021 06:14:00 PM EDT [facility] Name Value Range Interpretation Code Description Data Source(s) Weight Measurement Method 8 8 [facility] Weight 3520 3520 [facility] pital Temperature Source 7 7 [facility] Temperature 97.4 97.4 [facility] Respiratory Effort 1 1 [facility] Respiratory Rate 18 18 [facility] Pulse Assessment Method 4 4 [facility] Pulse Rate 94 94 [facility] pital Height 66 66 [facility] pital Blood Pressure 136/75 136/75 [facility] Weight Measurement Method 8 8 [facility] Weight 3520 3520 [facility] pital Temperature Source 1 1 [facility] Temperature 98.5 98.5 [facility] Respiratory Effort 1 1 [facility] Respiratory Rate 16 16 [facility] Pulse Assessment Method 4 4 [facility] Pulse Rate 86 86 [facility] pital Height 66 66 [facility] pital Blood Pressure 131/98 131/98 [facility] Weight Measurement Method 8 8 [facility] Weight 3520 3520 [facility] pital Temperature Source 1 1 [facility] Temperature 98.5 98.5 [facility] spital Respiratory Effort 1 1 [facility] Respiratory Rate 18 18 [facility] Pulse Assessment Method 4 4 [facility] Pulse Rate 108 108 [facility] pital Height 66 66 [facility] pital Blood Pressure 131/92 131/92 [facility] ID Date Data Source [id number] 05/09/2021 04:32:00 PM EDT [facility] Name Value Range Interpretation Code Description Data Source(s) Weight Measurement Method 8 8 [facility] Weight 3680 3680 [facility] pital Temperature Source 7 7 [facility] Temperature 99.0 99.0 [facility] spital Respiratory Effort 1 1 [facility] Respiratory Rate 18 18 [facility] Pulse Assessment Method 4 4 [facility] Pulse Rate 102 102 [facility] pital Height 66 66 [facility] pital Blood Pressure 141/79 141/79 [facility] Weight Measurement Method 8 8 [facility] Weight 3680 3680 [facility] pital Temperature Source 7 7 [facility] Temperature 98 98 [facility] spital Respiratory Effort 1 1 [facility] Respiratory Rate 16 16 [facility] Pulse Assessment Method 4 4 [facility] Pulse Rate 122 122 [facility] pital Height 66 66 [facility] pital Blood Pressure 149/85 149/85 [facility] ID Date Data Source [id number] 03/25/2021 07:15:08 AM EDT [facility] Name Value Range Interpretation Code Description Data Source(s) TRANSFER FROM [facility] ID Date Data Source [id number] 05/09/2021 04:49:00 PM EDT [facility] Name Value Range Interpretation Code Description Data Source(s) Weight Measurement Method 8 8 [facility] Weight 3680 3680 [facility] Temperature Source 7 7 [facility] Temperature 97.3 97.3 [facility] Respiratory Rate 18 18 [facility] Pulse Rate 106 106 [facility] Height 66 66 [facility] Blood Pressure 122/83 122/83 [facility] Weight Measurement Method 8 8 [facility] Weight 3680 3680 [facility] pital Temperature Source 7 7 [facility] Temperature 97.3 97.3 [facility] Respiratory Rate 18 18 [facility] Pulse Rate 106 106 [facility] Height 66 66 [facility] pital Blood Pressure 122/83 122/83 [facility] ID Date Data Source [id number] 05/10/2021 06:49:00 PM EDT [facility] Name Value Range Interpretation Code Description Data Source(s) Weight Measurement Method 8 8 [facility] Weight 3680 3680 [facility] pital Temperature Source 7 7 [facility] Temperature 99.8 99.8 [facility] Respiratory Effort 1 1 [facility] Respiratory Rate 18 18 [facility] Pulse Rate 117 117 [facility] pital Height 66 66 [facility] pital Blood Pressure 142/72 142/72 [facility] Weight Measurement Method 8 8 [facility] Weight 3680 3680 [facility] [facility] Temperature Source 7 7 [facility] Temperature 99.8 99.8 [facility] Respiratory Effort 1 1 [facility] Respiratory Rate 18 18 [facility] Pulse Rate 117 117 [facility] pital Height 66 66 [facility] pital Blood Pressure 142/72 142/72 [facility] ID Date Data Source [id number] 05/09/2021 02:14:00 PM EDT [facility] Name Value Range Interpretation Code Description Data Source(s) Weight Measurement Method 8 8 [facility] Weight 3680 3680 [facility] pital Temperature Source 7 7 [facility] Temperature 97.3 97.3 [facility] spital Respiratory Rate 16 16 [facility] Pulse Assessment Method 4 4 [facility] Pulse Rate 68 68 [facility] pital Height 66 66 [facility] pital Blood Pressure 113/59 113/59 [facility] Weight Measurement Method 8 8 [facility] Weight 3680 3680 [facility] pital Temperature Source 7 7 [facility] Temperature 98.7 98.7 [facility] spital Respiratory Rate 20 20 [facility] Pulse Rate 110 110 [facility] pital Height 66 66 [facility] pital Blood Pressure 135/70 135/70 [facility] ID Date Data Source [id number] 05/10/2021 09:58:00 AM EDT [facility] spital Name Value Range Interpretation Code Description Data Source(s) Weight Measurement Method 8 8 [facility] Weight 3680 3680 [facility] pital Temperature Source 7 7 [facility] Temperature 98.4 98.4 [facility] spital Respiratory Effort 1 1 [facility] Respiratory Rate 16 16 [facility] Pulse Assessment Method 4 4 [facility] Pulse Rate 78 78 [facility] pital Height 66 66 [facility] pital Blood Pressure 129/88 129/88 [facility] Weight Measurement Method 8 8 [facility] Weight 8113.011 8113.011 [facility] pital Temperature Source 7 7 [facility] Temperature 98.4 98.4 [facility] spital Respiratory Effort 1 1 [facility] Respiratory Rate 18 18 [facility] Pulse Assessment Method 4 4 [facility] Pulse Rate 109 109 [facility] pital Height 66 66 [facility] pital Blood Pressure 145/74 145/74 [facility] ID Date Data Source [id number] 02/26/2021 08:59:13 AM EDT [facility] Name Value Range Interpretation Code Description Data Source(s) TRANSFER FROM [facility] ID Date Data Source [id number] 05/09/2021 08:17:00 PM EDT [facility] spital Name Value Range Interpretation Code Description Data Source(s) Weight Measurement Method 8 8 [facility] Weight 3680 3680 [facility] pital Temperature Source 7 7 [facility] Temperature 98.3 98.3 [facility] spital Respiratory Effort 1 1 [facility] Respiratory Rate 20 20 [facility] Pulse Assessment Method 4 4 [facility] Pulse Rate 108 108 [facility] pital Height 66 66 [facility] pital Blood Pressure 124/58 124/58 [facility] Weight Measurement Method 8 8 [facility] Weight 3680 3680 [facility] pital Temperature Source 7 7 [facility] Temperature 96.7 96.7 [facility] spital Respiratory Effort 1 1 [facility] Respiratory Rate 18 18 [facility] Pulse Assessment Method 4 4 [facility] Pulse Rate 94 94 [facility]ital [facility] 66 66 [facility] 126/81 126/81 [facility] Weight Measurement Method 8 8 [facility] Weight 3680 3680 [facility] pital Temperature Source 7 7 [facility] Temperature 96.7 96.7 [facility] spital Respiratory Effort 1 1 [facility] Respiratory Rate 18 18 [facility] Pulse Assessment Method 4 4 [facility] Pulse Rate 94 94 [facility] pital Height 66 66 [facility] pital Blood Pressure 126/81 126/81 [facility] ID Date Data Source [id number] 04/19/2021 01:44:00 AM EDT [facility] Name Value Range Interpretation Code Description Data Source(s) WEIGHT 136.6 kilos 136.6 kilos [facility] HEIGHT 170.18 centimeters 170.18 centimeter s [facility] WEIGHT 137.7 kilos 137.7 kilos [facility] HEIGHT 170.18 centimeters 170.18 centimeter s [facility] WEIGHT 137.2 kilos 137.2 kilos [facility] HEIGHT 170.18 centimeters 170.18 centimeter s [facility] WEIGHT 137.2 kilos 137.2 kilos [facility] HEIGHT 152.4 centimeters 152.4 centimeters [facility] WEIGHT 137.2 kilos 137.2 kilos [facility] HEIGHT 170.18 centimeters 170.18 centimeter s [facility] WEIGHT 134.5 kilos 134.5 kilos [facility] HEIGHT 170.18 centimeters 170.18 centimeter s [facility] ID Date Data Source [id number] 04/19/2021 01:44:00 AM EDT [facility] Name Value Range Interpretation Code Description Data Source(s) WEIGHT 136.3 kilos 136.3 kilos [facility] HEIGHT 152.4 centimeters 152.4 centimeters [facility] WEIGHT 136.3 kilos 136.3 kilos [facility] HEIGHT 170.18 centimeters 170.18 centimeter s [facility] WEIGHT 136.8 kilos 136.8 kilos [facility] HEIGHT 170.18 centimeters 170.18 centimeter s [facility] WEIGHT 131.5 kilos 131.5 kilos [facility] HEIGHT 170.18 centimeters 170.18 centimeter s [facility] WEIGHT 128.8 kilos 128.8 kilos [facility] HEIGHT 170.18 centimeters 170.18 centimeter s [facility] WEIGHT 126.8 kilos 126.8 kilos [facility] HEIGHT 170.18 centimeters 170.18 centimeter s [facility] WEIGHT 124 kilos 124 kilos [facility] HEIGHT 170.18 centimeters 170.18 centimeter s [facility] ID Date Data Source [id number] 10/29/2020 09:38:25 PM EDT [facility] Name Value Range Interpretation Code Description Data Source(s) PREFERRED NAME Romel Urena [facility] TRANSFER FROM [facility] ID Date Data Source [id number] 04/19/2021 01:44:00 AM EDT [facility] Name Value Range Interpretation Code Description Data Source(s) WEIGHT 124 kilos 124 kilos [facility] HEIGHT 167.64 centimeters 167.64 centimeter s [facility] ID Date Data Source [id number] 07/18/2020 09:56:40 PM [facility] Name Value Range Interpretation Code Description Data Source(s) PREFERRED NAME Romel Urena [facility] TRANSFER FROM [facility] ID Date Data Source [id number] 04/19/2021 01:43:00 AM EDT [facility] Name Value Range Interpretation Code Description Data Source(s) WEIGHT 122.8 kilos 122.8 kilos [facility] HEIGHT 167.64 centimeters 167.64 centimeter s [facility] WEIGHT 100 kilos 100 kilos [facility] HEIGHT 167.64 centimeters 167.64 centimeter [facility] ID Date Data Source [id number] 04/19/2021 01:43:00 AM EDT [facility] Name Value Range Interpretation Code Description Data Source(s) WEIGHT 124.2 kilos 124.2 kilos [facility] HEIGHT 167.64 centimeters 167.64 centimeter s [facility] WEIGHT 123.4 kilos 123.4 kilos [facility] HEIGHT 167.64 centimeters 167.64 centimeter s [facility] WEIGHT 123.9 kilos 123.9 kilos [facility] HEIGHT 167.64 centimeters 167.64 centimeter s [facility] WEIGHT 123.9 kilos 123.9 kilos [facility] HEIGHT 152.4 centimeters 152.4 centimeters [facility] WEIGHT 119.6 kilos 119.6 kilos [facility] HEIGHT 167.64 centimeters 167.64 centimeter s [facility] WEIGHT 118.2 kilos 118.2 kilos [facility] HEIGHT 167.64 centimeters 167.64 centimeter s [facility] WEIGHT 112.6 kilos 112.6 kilos [facility] HEIGHT 167.64 centimeters 167.64 centimeter s [facility] WEIGHT 100 kilos 100 kilos [facility] HEIGHT 167.64 centimeters 167.64 centimeter s [facility] ID Date Data Source [id number] 04/19/2021 01:43:00 AM EDT [facility] Name Value Range Interpretation Code Description Data Source(s) WEIGHT 100 kilos 100 kilos [facility] HEIGHT 167.64 centimeters 167.64 centimeter [facility] ID Date Data Source [id number] 04/19/2021 01:43:00 AM EDT [facility] Name Value Range Interpretation Code Description Data Source(s) WEIGHT 110 kilos 110 kilos [facility] HEIGHT 167.64 centimeters 167.64 centimeter [facility] WEIGHT 100 kilos 100 kilos [facility] HEIGHT 167.64 centimeters 167.64 centimeter [facility] ID Date Data Source [id number] 04/19/2021 01:43:00 AM EDT [facility] Name Value Range Interpretation Code Description Data Source(s) WEIGHT 104.4 kilos 104.4 kilos [facility] HEIGHT 152.4 centimeters 152.4 centimeters [facility] WEIGHT 100 kilos 100 kilos [facility] HEIGHT 167.64 centimeters 167.64 centimeter [facility] Patient Treatment Plan of Care Planned Activity Planned Date Details Description Data Source (s) aripiprazole 5 MG Oral Tablet 06/08/2021 09:00:00 AM [facility] Loratadine 10 MG Oral Tablet 06/08/2021 09:00:00 AM [facility] Sertraline 50 MG Oral Tablet 06/08/2021 09:00:00 AM [facility] diphenhydrAMINE (BENADRYL) 50 MG/ML injection 06/08/2021 08:50:41 A M [facility] chlorproMAZINE (THORAZINE) 50 MG/2ML injection 06/08/2021 08:49:38 AM [facility] montelukast 10 MG Oral Tablet 06/07/2021 10:00:00 PM [facility] olanzapine 5 MG Oral Tablet 06/07/2021 10:00:00 PM [facility] Prazosin 1 MG Oral Capsule 06/07/2021 10:00:00 PM [facility] Hydroxyzine Hydrochloride 50 MG Oral Tablet 06/07/2021 06:59:33 PM [facility] montelukast 10 MG Oral Tablet 05/29/2021 10:00:00 PM [facility] olanzapine 5 MG Oral Tablet 05/29/2021 10:00:00 PM [facility] Prazosin 1 MG Oral Capsule 05/29/2021 10:00:00 PM [facility] Calcium Carbonate 500 MG Chewable Tablet 05/29/2021 11:42:07 AM [facility] Ondansetron 4 MG Disintegrating Oral Tablet 05/28/2021 11:03:22 PM [facility] Hydroxyzine Hydrochloride 50 MG Oral Tablet 05/28/2021 11:03:19 PM [facility] Magnesium Hydroxide 80 MG/ML Oral Suspension 05/28/2021 11:03:16 PM [facility] Escitalopram 10 MG Oral Tablet 05/22/2021 12:00:00 AM [facility] aripiprazole 5 MG Oral Tablet 05/20/2021 12:00:00 AM [facility] Sertraline 50 MG Oral Tablet 04/07/2021 12:00:00 AM [facility] Prazosin 1 MG Oral Capsule 04/05/2021 10:00:00 PM [facility] Ondansetron 4 MG Disintegrating Oral Tablet 04/05/2021 06:25:36 AM [facility] Magnesium Hydroxide 80 MG/ML Oral Suspension 04/05/2021 06:25:35 AM [facility] Aluminum Hydroxide 40 MG/ML / Magnesium Hydroxide 40 MG/ML / Simethicone 4 MG/ML Oral Suspension 04/05/2021 06:25:35 AM [facility] Melatonin 5 MG Oral Tablet 04/05/2021 06:25:23 AM [facility] aripiprazole 10 MG Oral Tablet 03/25/2021 12:00:00 AM [facility] Escitalopram 5 MG Oral Tablet 03/15/2021 12:00:00 AM [facility] Prazosin 2 MG Oral Capsule 03/15/2021 12:00:00 AM [facility] Escitalopram 5 MG Oral Tablet 03/15/2021 12:00:00 AM [facility] Prazosin 2 MG Oral Capsule 03/15/2021 12:00:00 AM [facility] Loratadine 10 MG Oral Tablet 02/26/2021 12:00:00 AM [facility] topiramate 25 MG Oral Tablet 02/26/2021 12:00:00 AM [facility] Sertraline 50 MG Oral Tablet 02/26/2021 12:00:00 AM [facility] Lurasidone Hydrochloride 80 MG Oral Tablet 02/26/2021 12:00:00 AM [facility] topiramate 25 MG Oral Tablet 02/26/2021 12:00:00 AM [facility] Sertraline 50 MG Oral Tablet 02/26/2021 12:00:00 AM [facility] Lurasidone Hydrochloride 80 MG Oral Tablet 02/26/2021 12:00:00 AM [facility] Loratadine 10 MG Oral Tablet 02/26/2021 12:00:00 AM [facility] Prazosin 2 MG Oral Capsule 02/25/2021 12:00:00 AM [facility] montelukast 10 MG Oral Tablet 02/25/2021 12:00:00 AM [facility] Propranolol Hydrochloride 10 MG Oral Tablet 02/25/2021 12:00:00 AM [facility] Trazodone Hydrochloride 50 MG Oral Tablet 02/25/2021 12:00:00 AM [facility] Pravastatin Sodium 20 MG Oral Tablet 02/25/2021 12:00:00 AM [facility] Trazodone Hydrochloride 50 MG Oral Tablet 02/25/2021 12:00:00 AM [facility] Propranolol Hydrochloride 10 MG Oral Tablet 02/25/2021 12:00:00 AM [facility] Prazosin 2 MG Oral Capsule 02/25/2021 12:00:00 AM [facility] Pravastatin Sodium 20 MG Oral Tablet 02/25/2021 12:00:00 AM [facility] montelukast 10 MG Oral Tablet 02/25/2021 12:00:00 AM [facility] chlorproMAZINE (THORAZINE) 50 MG/2ML injection 02/22/2021 05:23:23 PM [facility] diphenhydrAMINE (BENADRYL) 50 MG/ML injection 02/22/2021 05:23:16 P M [facility] Hydroxyzine Hydrochloride 50 MG Oral Tablet 02/21/2021 08:18:25 PM [facility] Magnesium Hydroxide 80 MG/ML Oral Suspension 02/21/2021 08:18:18 PM [facility] Lurasidone Hydrochloride 40 MG Oral Tablet [Latuda] 02/14/20 12:00:00 AM [facility] Prazosin 1 MG Oral Capsule 02/13/2021 12:00:00 AM [facility] carbamide peroxide 65 MG/ML Otic Solution 01/02/2021 12:00:00 AM [facility] Ciprofloxacin 3 MG/ML Ophthalmic Solution 01/02/2021 12:00:00 AM [facility] Ibuprofen 400 MG Oral Tablet 01/02/2021 12:00:00 AM [facility] Sertraline 100 MG Oral Tablet 01/02/2021 12:00:00 AM [facility] Naproxen 250 MG Oral Tablet 08/22/2020 12:00:00 AM [facility] Chlorpromazine hydrochloride 100 MG Oral Tablet 08/20/2020 12:00:00 AM [facility] Chlorpromazine hydrochloride 25 MG Oral Tablet 08/20/2020 12:00:00 AM [facility] Lorazepam 1 MG Oral Tablet 08/20/2020 12:00:00 AM [facility] topiramate 100 MG Oral Tablet 08/20/2020 12:00:00 AM [facility] 2 ML aripiprazole 200 MG/ML Prefilled Syringe [Abilify ] 06/18/2020 12:00:00 AM [facility] ospital duloxetine 30 MG Delayed Release Oral Capsule 12/28/2019 12:00:00 A M [facility] topiramate 50 MG Oral Tablet 09/13/2019 12:00:00 AM [facility] Prazosin 1 MG Oral Capsule 06/17/2019 12:00:00 AM [facility] Loratadine 10 MG Oral Tablet [facility] Lurasidone Hydrochloride 40 MG Oral Tablet [facility] Pravastatin Sodium 20 MG Oral Tablet [facility] aripiprazole 10 MG Oral Tablet [facility] Loratadine 10 MG Oral Capsule [facility] olanzapine 5 MG Oral Tablet [facility] Sertraline 100 MG Oral Tablet [facility] Nicotine 2 MG Chewing Gum [facility] Sertraline 50 MG Oral Tablet [facility] Propranolol Hydrochloride 10 MG Oral Tablet [facility] Prazosin 1 MG Oral Capsule [facility] Ondansetron 4 MG Oral Tablet [facility] Citalopram 20 MG Oral Tablet [facility]
[2021-06-15 13:22] LABS: HCG, SERUM QUALITATIVE NEGATIVE (NEGATIVE)
[2021-06-15 13:33] LABS: ACETAMINOPHEN LEVEL < 2.0 UG/ML (10.0-30.0); ALBUMIN 3.7 GM/DL (3.2-5.2); ALT/SGPT 63 U/L (12-78); BILIRUBIN,DIRECT 0.1 MG/DL (0.0-0.2); BILIRUBIN,TOTAL 0.3 MG/DL (0.2-1.0); BLOOD UREA NITROGEN 14 MG/DL (7-18); CARBON DIOXIDE LEVEL 26 MEQ/L (21-32); CHLORIDE LEVEL 110 MEQ/L (98-107); CREATININE FOR GFR 0.56 MG/DL (0.55-1.30); ETHYL ALCOHOL (ETHANOL) < 0.003 % (0.000-0.010); GLUCOSE, FASTING 93 MG/DL (70-100); POTASSIUM SERUM 4.3 MEQ/L (3.5-5.1); SALICYLATE LEVEL < 1.7 MG/DL (5.0-30.0); SODIUM LEVEL 143 MEQ/L (136-145); THYROID STIMULATING HORMONE 0.734 uIU/ML (0.463-3.98); TOTAL PROTEIN 7.7 GM/DL (6.4-8.2)
[2021-06-15 15:37] LABS: AMPHETAMINES LEVEL URINE NEGATIVE (NEGATIVE); BARBITURATES URINE NEGATIVE (NEGATIVE); BENZODIAZEPINES URINE NEGATIVE (NEGATIVE); CANNABINOIDS URINE NEGATIVE (NEGATIVE); COCAINE METABOLITE URINE NEGATIVE (NEGATIVE); METHADONE URINE NEGATIVE (NEGATIVE); OPIATES URINE NEGATIVE (NEGATIVE); PHENCYCLIDINE URINE NEGATIVE (NEGATIVE)
--- NOTE | 2021-06-15 17:26 | ECGEPIP ---
[facility] - ED Test Date: 2021-06-15 Pat Name: SCOTTY OCAMPO Department: Room: - Gender: Female [employer]: : 2000 Requested By: Olivia Zuniga Order Number: [id number] Reading MD: Olivia Zuniga Measurements Intervals [place] Rate: 67 P: 53 UT: 146 QRS: -2 QRSD: 90 T: 37 QT: 378 QTc: 399 Interpretive Statements Normal sinus rhythm with sinus arrhythmia decreased rate 06/06/21 Electronically Signed on 06-15-2021 17:25:48 EST by Olivia Zuniga
[2021-06-15] MEDS ORDERED: HOME MED LIST COMPLETE! XX SCH (18:40)
--- NOTE | 2021-06-16 11:30 | MHCRPDOC ---
[facility] Consultation Consultation DATE OF CONSULTATION: 06/16/21 CONSULTATION REQUESTED BY: ED team REASON FOR CONSULTATION: Reported overdose, suicidal ideations HISTORY: Patient has multiple ED visits, where she self presents to the ED reporting overdose, on this occasion presented reportedly overdosing on a different medication each day in context of alcohol use, this is despite negative toxicology screen for alcohol. Initially presented reporting vague suicidal ideations as per previous admissions, on this occasion stated she had time to calm down, medications were removed from home by boyfriend showing she lives up on [facility], states she has an appointment with therapist Grayson Amado on Wednesday of this week which she plans to attend and medication appointments, currently medications have been discontinued due to misuse. States she feels safe to return home and is agreeable to the completing safety plan with social work, denies suicidal ideation, intent or plan. Denies homicidal ideation, intent or plan. Doesn't appear manic or psychotic, denies hallucinations, denies delusions, denies intrusive thoughts, denies impulsivity, denies thoughts of self-harm. Reports mood is an "8 out of 10, good". Reports slept at least 8 hours last night without issue, eating normally, denies depression, denies anxiety. No acute physical complaints. Per PSA report: "Pt states she took an overdose of pills three days in a row in an attempt to end live. Pt states she took an unknown amount of Zoloft on day one, a handful of ibuprofen on day two and approximately 20 melatonin on day three. Pt states she took pills each day with alcohol. Pt's labs are clear of any evidence of overdose. Pt admits she came to hospital because she did not have the number to crisis intervention, and had nobody to talk to. Pt states she is still suicidal but has no plans of harming self. Pt states she cannot CFS. Pt in the process of looking for her own apartment as she is living with an ex-fiance at this time. Pt has minimal to no support from family. Pt has an extensive history of ER visits and multiple inpatient mental health admissions. Pt states she sees Grayson Amado for therapist, and Dr. Giles via zoom for phychiatrist" PAST PSYCHIATRIC HISTORY: See previous care summaries, history of borderline personality sorter, has history of reported suicide attempts, multiple inpatient admissions, routinely self presents to the ED in context of reported overdose. PAST MEDICAL HISTORY: See care summary FAMILY HISTORY: Unclear PERSONAL AND SOCIAL HISTORY: The patient was born and raised in [place]. Resides in: [place] Marital Status: Lives with boyfriend on [address] reportedly SUBSTANCE ABUSE HISTORY: Denies LEGAL HISTORY: none indicated MENTAL STATUS EXAMINATION: Patient is a 20-year old female, who is no acute distress lying in bed, calm, good eye contact, good hygiene, appears somewhat older than stated Speech is spontaneous, normal rate and normal amount Language skills are intact Thought processes including: Linear, logical, goal-directed Thought content: Denies suicidal ideation, intent or plan. Denies homicidal ideation, intent. Abstract reasoning, and computation: Normal Description of associations: Normal based on interview Description of abnormal or psychotic thoughts: Denies. Judgment: Fair Insight: Good Orientation to x4 Recent and remote memory: Intact Attention span and concentration: Good Language: Kyrgyz Fund of knowledge: Average based on age Mood: "I'm good, 8 out of 10" Affect: Calm, euthymic, full, stable, appropriate, mood congruent DIAGNOSIS: 1. Unspecified depressive disorder 2. Borderline personality disorder PLAN: 1. Patient does not meet criteria for involuntary admission, refuses voluntary admission due to self presenting in context of reported overdose which has not been substantiated by lab testing, patient routinely comes to the emergency department seeking admission in context of arguments/situations at home and not reaching out to crisis line or supports, initially states she suicidal after several hours of being in the ED states she is no longer suicidal and ready to return home, on this occasion self presented after a reported overdose in contex t of alcohol use, labs negative for alcohol despite reportedly drinking for 3 days consistently and immediately prior to admission, today no signs of withdrawal symptoms or increased anxiety or depression or any suicidal ideation, intent or plan. No homicidal ideation, intent or plan, patient needs safety plan created removing all medication she could overdose on at home, denies w eapons at home, should be removed if there are any present or any sharp objects or things she can harm herself with, should be watched 24/ by boyfriend before going to her appointment which she plans to attend on Wednesday with therapist Grayson Amado, which should be confirmed by social work. Currently not taking any medications and feels stable and safe to return home. Vital Signs Vital Signs Date Time Temp Pulse Resp B/P (MAP) Pulse Ox O2 Delivery O2 Flow Rate FiO2 06/16/21 05:39 98.1 71 16 130/66 (87) 98 Room Air Laboratory Data 24H Labs Laboratory Tests 2 06/15/21 12:44: Immature Granulocyte % (Auto) 0.4, Neutrophils (%) (Auto) 63.4, Lymphocytes (%) (Auto) 27.0, Monocytes (%) (Auto) 7.3, Eosinophils (%) (Auto) 1.6, Basophils (%) (Auto) 0.3, Neutrophils # (Auto) 4.9, Lymphocytes # (Auto) 2.1, Monocytes # (Auto) 0.6, Eosinophils # (Auto) 0.1, Basophils # (Auto) 0.0, Nucleated Red Bloo d Cells % (auto) 0.0, Anion Gap 7L, Calcium Level 9.0, Total Bilirubin 0.3, Direct Bilirubin 0.1, Aspartate Amino Transf (AST/SGOT) 34, Alanine Aminotransferase (ALT/SGPT) 63, Alkaline Phosphatase 99, Total Creatine Kinase 240H, Total Protein 7.7, Albumin 3.7, Albumin/Globulin Ratio 0.9L, Thyroid Stimulating Hormone (TSH) 0.734, Human Chorionic Gonadotropin, Qual NEGATIVE, Salicylates Level < 1.7L, Acetaminophen Level < 2.0L, Ethyl Alcohol Level < 0.003 06/15/21 15:06: Urine Opiates Screen NEGATIVE, Urine Methadone Screen NEGATIVE, Urine Barbiturates Screen NEGATIVE, Urine Phencyclidine Screen NEGATIVE, Urine Am phetamines Screen NEGATIVE, Urine Benzodiazepines Screen NEGATIVE, Urine Cocaine Metabolite Screen NEGATIVE, Urine Cannabinoids Screen NEGATIVE Home Medications Current Medications Current Medications Medications (Trade) Dose Ordered Sig/Brielle Route PRN Reason Start Time Stop Time Status Last Admin Dose Admin Home Med (Home Med List Complete!) ASDIRECTED XX 06/15/21 18:40 06/15/21 18:39 DC No Active Prescriptions or Reported Meds Allergies Coded Allergies: haloperidol (Verified Adverse Reaction, Intermediate, LOCKJAW, 05/24/21) Has required & received this med many time without EPS noted risperidone (Verified Adverse Reaction, Mild, PSORIASIS, 05/24/21) RUBY DEVI MD Jun 16, 2021 11:30
[2021-06-16 11:38] VITALS: BP 134/89
== END 2021-06-16 11:41 | disposition home or self-care (01) ==
LOC: M ED 12:26
DX: F60.3 Borderline personality disorder (principal); T50.902A Poisoning by unspecified drugs, medicaments and biological substances, intentional self-harm, initial encounter; F32.A Depression, unspecified; Z88.8 Allergy status to other drugs, medicaments and biological substances

== ENCOUNTER 2021-06-20 20:32 | Emergency (ER) | payer OTHER ==
[~2021-06-20] VITALS: Ht 167.6 cm; Wt 104.5 kg
[~2021-06-20 20:32] MED LIST changes: -CITA10TA5; -CITA10TA5 PO; +CITA10TA7; +CITA10TA7 PO; -HALO5TA PO; +HALO5TAB33 PO; -LATU80TA PO; +LATU80TA2 PO; -MONT10TA10 PO; +MONT10TA97 PO
[2021-06-20] MEDS ORDERED: NS 1,000 ML IV ONE (21:00)
[2021-06-20] MEDS ORDERED: HALOPERIDOL 5MG/ML VIAL (J1630 PER 1) As Ordered ONE (21:33)
[2021-06-20] MEDS ORDERED: diphenhydrAMINE 50MG/ML VIAL (J1200) As Ordered ONE (21:33)
[2021-06-20] MEDS ORDERED: LORazepam 2 MG/ML VIAL As Ordered ONE (21:33)
[2021-06-20] MEDS ORDERED: diphenhydrAMINE 50MG/ML VIAL (J1200) IM ONE (21:35)
[2021-06-20] MEDS ORDERED: LORazepam 2 MG/ML VIAL IM ONE (21:35)
[2021-06-20] MEDS ORDERED: HALOPERIDOL 5MG/ML VIAL (J1630 PER 1) IM ONE (21:35)
[2021-06-20 22:59] LABS: BASO % 0.2 % (0.0-1.0); EOS # 0.1 10^3/uL (0.0-0.5); EOS % 0.9 % (0.0-3.0); HEMATOCRIT 39.3 % (36.0-47.0); HEMOGLOBIN 12.7 g/dl (12.0-15.5); LYMPH # 2.5 10^3/uL (1.5-5.0); LYMPH % 30.4 % (24.0-44.0); MEAN CORPUSCULAR HEMOGLOBIN 28.9 pg (27.0-33.0); MEAN CORPUSCULAR HGB CONC 32.3 g/dl (32.0-36.5); MEAN CORPUSCULAR VOLUME 89.5 fl (80.0-96.0); MONO # 0.6 10^3/uL (0.0-0.8); MONO % 6.7 % (2.0-8.0); NEUTROPHILS % 61.4 % (36.0-66.0); PLATELET COUNT, AUTOMATED 251 10^3/uL (150-450); RED BLOOD COUNT 4.39 10^6/uL (4.00-5.40); WHITE BLOOD COUNT 8.2 10^3/uL (4.0-10.0)
[2021-06-20 23:17] LABS: HCG, SERUM QUALITATIVE NEGATIVE (NEGATIVE)
[2021-06-20 23:24] LABS: ACETAMINOPHEN LEVEL < 2.0 UG/ML (10.0-30.0); ALBUMIN 3.5 GM/DL (3.2-5.2); ALT/SGPT 45 U/L (12-78); BILIRUBIN,DIRECT < 0.1 MG/DL (0.0-0.2); BILIRUBIN,TOTAL 0.2 MG/DL (0.2-1.0); BLOOD UREA NITROGEN 16 MG/DL (7-18); CALCIUM LEVEL 8.7 MG/DL (8.5-10.1); CARBON DIOXIDE LEVEL 24 MEQ/L (21-32); CHLORIDE LEVEL 109 MEQ/L (98-107); ETHYL ALCOHOL (ETHANOL) < 0.003 % (0.000-0.010); GLUCOSE, FASTING 94 MG/DL (70-100); POTASSIUM SERUM 4.5 MEQ/L (3.5-5.1); SALICYLATE LEVEL < 1.7 MG/DL (5.0-30.0); SODIUM LEVEL 141 MEQ/L (136-145); THYROID STIMULATING HORMONE 0.706 uIU/ML (0.463-3.98); TOTAL PROTEIN 7.2 GM/DL (6.4-8.2)
[2021-06-20 23:35] LABS: AMPHETAMINES LEVEL URINE NEGATIVE (NEGATIVE); BARBITURATES URINE NEGATIVE (NEGATIVE); BENZODIAZEPINES URINE NEGATIVE (NEGATIVE); CANNABINOIDS URINE NEGATIVE (NEGATIVE); COCAINE METABOLITE URINE NEGATIVE (NEGATIVE); METHADONE URINE NEGATIVE (NEGATIVE); OPIATES URINE NEGATIVE (NEGATIVE); PHENCYCLIDINE URINE NEGATIVE (NEGATIVE)
[2021-06-21 00:21] LABS: RSV AMPLIFICATION NEGATIVE (NEGATIVE)
[2021-06-21] MEDS ORDERED: ACETAMINOPHEN TAB 650MG DOSE (2X325MG) PO ONE (13:40)
[2021-06-21] MEDS ORDERED: HOME MED LIST COMPLETE! XX SCH (16:25)
[2021-06-22] MEDS ORDERED: ACETAMINOPHEN 325 MG TAB PO ONE (09:50)
[2021-06-22] MEDS ORDERED: LORazepam 2 MG TAB PO ONE ×2 (11:30→20:05)
[2021-06-22] MEDS ORDERED: LORazepam 2 MG TAB PO STA (21:28)
[2021-06-23] MEDS ORDERED: LOPERAMIDE 2 MG CAPLET PO PRN (08:25)
[2021-06-23 10:52] VITALS: BP 132/80
== END 2021-06-23 12:13 | disposition home or self-care (01) ==
LOC: M ED 20:32
DX: F60.3 Borderline personality disorder (principal); F31.9 Bipolar disorder, unspecified; Z88.8 Allergy status to other drugs, medicaments and biological substances
CPT/HCPCS: 80048; 80076; 80143; 80307; 82077; 82550; 84443; 84703; 85025; 87631; 93005; 94760; 99285; J1200; J1630; J2060

== ENCOUNTER 2021-06-26 21:08 | Emergency (ER) | payer OTHER ==
[~2021-06-26] VITALS: Ht 167.6 cm; Wt 133.0 kg
[2021-06-26] MEDS ORDERED: CHARCOAL ACTIVATED LIQUID 25 GM/120 ML BTL PO ONE (21:20)
[2021-06-26 22:06] LABS: BASO % 0.2 % (0.0-1.0); EOS # 0.1 10^3/uL (0.0-0.5); EOS % 0.7 % (0.0-3.0); HEMATOCRIT 37.4 % (36.0-47.0); HEMOGLOBIN 12.3 g/dl (12.0-15.5); LYMPH # 2.4 10^3/uL (1.5-5.0); LYMPH % 29.9 % (24.0-44.0); MEAN CORPUSCULAR HEMOGLOBIN 29.4 pg (27.0-33.0); MEAN CORPUSCULAR HGB CONC 32.9 g/dl (32.0-36.5); MEAN CORPUSCULAR VOLUME 89.3 fl (80.0-96.0); MONO # 0.7 10^3/uL (0.0-0.8); PLATELET COUNT, AUTOMATED 237 10^3/uL (150-450); RED BLOOD COUNT 4.19 10^6/uL (4.00-5.40); WHITE BLOOD COUNT 8.2 10^3/uL (4.0-10.0)
[2021-06-26 22:27] LABS: AMPHETAMINES LEVEL URINE NEGATIVE (NEGATIVE); BARBITURATES URINE NEGATIVE (NEGATIVE); BENZODIAZEPINES URINE NEGATIVE (NEGATIVE); CANNABINOIDS URINE NEGATIVE (NEGATIVE); COCAINE METABOLITE URINE NEGATIVE (NEGATIVE); METHADONE URINE NEGATIVE (NEGATIVE); OPIATES URINE NEGATIVE (NEGATIVE); PHENCYCLIDINE URINE NEGATIVE (NEGATIVE)
[2021-06-26 22:29] LABS: HCG, SERUM QUALITATIVE NEGATIVE (NEGATIVE)
[2021-06-26 22:38] LABS: ALBUMIN 3.7 GM/DL (3.2-5.2); ALT/SGPT 54 U/L (12-78); BILIRUBIN,DIRECT 0.1 MG/DL (0.0-0.2); BILIRUBIN,TOTAL 0.3 MG/DL (0.2-1.0); BLOOD UREA NITROGEN 18 MG/DL (7-18); CALCIUM LEVEL 9.3 MG/DL (8.5-10.1); CARBON DIOXIDE LEVEL 27 MEQ/L (21-32); CHLORIDE LEVEL 107 MEQ/L (98-107); CREATININE FOR GFR 0.58 MG/DL (0.55-1.30); ETHYL ALCOHOL (ETHANOL) < 0.003 % (0.000-0.010); GLUCOSE, FASTING 93 MG/DL (70-100); SODIUM LEVEL 140 MEQ/L (136-145); TOTAL PROTEIN 7.3 GM/DL (6.4-8.2)
[2021-06-26 22:39] LABS: ACETAMINOPHEN LEVEL < 2.0 UG/ML (10.0-30.0); SALICYLATE LEVEL < 1.7 MG/DL (5.0-30.0); THYROID STIMULATING HORMONE 0.776 uIU/ML (0.463-3.98)
[2021-06-26 22:50] LABS: RSV AMPLIFICATION NEGATIVE (NEGATIVE)
[2021-06-27] MEDS ORDERED: HOME MED LIST COMPLETE! XX SCH (07:45)
[2021-06-27] MEDS ORDERED: ACETAMINOPHEN 500 MG TAB PO ONE (17:20)
[2021-06-28] MEDS ORDERED: ACETAMINOPHEN TAB 650MG DOSE (2X325MG) PO ONE (09:35)
[2021-06-28 15:54] VITALS: BP 131/75
== END 2021-06-28 15:56 | disposition home or self-care (01) ==
LOC: M ED 21:08
DX: F60.3 Borderline personality disorder (principal); Z76.5 Malingerer [conscious simulation]; F31.9 Bipolar disorder, unspecified; Z88.8 Allergy status to other drugs, medicaments and biological substances; Z79.899 Other long term (current) drug therapy

== ENCOUNTER 2021-07-06 01:29 | Emergency (ER) | payer OTHER ==
[~2021-07-06] VITALS: Ht 167.6 cm; Wt 135.4 kg
[2021-07-06 02:16] LABS: HEMATOCRIT 38.2 % (36.0-47.0); HEMOGLOBIN 12.6 g/dl (12.0-15.5); MEAN CORPUSCULAR HEMOGLOBIN 29.1 pg (27.0-33.0); MEAN CORPUSCULAR VOLUME 88.2 fl (80.0-96.0); PLATELET COUNT, AUTOMATED 263 10^3/uL (150-450); RED BLOOD COUNT 4.33 10^6/uL (4.00-5.40); WHITE BLOOD COUNT 9.5 10^3/uL (4.0-10.0)
[2021-07-06] MEDS ORDERED: ARIP1TAB6 PO (02:16)
[2021-07-06 02:25] LABS: AMPHETAMINES LEVEL URINE NEGATIVE (NEGATIVE); BARBITURATES URINE NEGATIVE (NEGATIVE); BENZODIAZEPINES URINE NEGATIVE (NEGATIVE); CANNABINOIDS URINE NEGATIVE (NEGATIVE); COCAINE METABOLITE URINE NEGATIVE (NEGATIVE); METHADONE URINE NEGATIVE (NEGATIVE); OPIATES URINE NEGATIVE (NEGATIVE); PHENCYCLIDINE URINE NEGATIVE (NEGATIVE)
[2021-07-06 02:50] LABS: HCG, SERUM QUALITATIVE NEGATIVE (NEGATIVE)
[2021-07-06 02:53] LABS: ACETAMINOPHEN LEVEL < 2.0 UG/ML (10.0-30.0); ALBUMIN 3.8 GM/DL (3.2-5.2); ALT/SGPT 57 U/L (12-78); BILIRUBIN,DIRECT < 0.1 MG/DL (0.0-0.2); BILIRUBIN,TOTAL 0.3 MG/DL (0.2-1.0); BLOOD UREA NITROGEN 19 MG/DL (7-18); CALCIUM LEVEL 8.7 MG/DL (8.5-10.1); CARBON DIOXIDE LEVEL 23 MEQ/L (21-32); CHLORIDE LEVEL 107 MEQ/L (98-107); CREATININE FOR GFR 0.65 MG/DL (0.55-1.30); ETHYL ALCOHOL (ETHANOL) < 0.003 % (0.000-0.010); GLUCOSE, FASTING 90 MG/DL (70-100); SALICYLATE LEVEL < 1.7 MG/DL (5.0-30.0); SODIUM LEVEL 139 MEQ/L (136-145); TOTAL PROTEIN 7.6 GM/DL (6.4-8.2)
[2021-07-06 03:55] LABS: RSV AMPLIFICATION NEGATIVE (NEGATIVE)
[2021-07-06] MEDS ORDERED: ACETAMINOPHEN TAB 650MG DOSE (2X325MG) PO ONE (14:30)
[2021-07-06] MEDS ORDERED: LORazepam 1 MG TAB PO ONE (15:30)
[2021-07-06] MEDS ORDERED: LORazepam 2 MG/ML VIAL IM ONE (15:30)
[2021-07-06] MEDS ORDERED: diphenhydrAMINE 50MG/ML VIAL (J1200) IM ONE (15:30)
[2021-07-06] MEDS ORDERED: HOME MED LIST COMPLETE! XX SCH (19:25)
[2021-07-07] MEDS ORDERED: NICOTINE 21MG/24HR 1 EA TRANSDERMAL TD ONE (10:30)
[2021-07-07] MEDS ORDERED: LORazepam 1 MG TAB PO ONE (15:05)
[2021-07-07] MEDS ORDERED: ONDANSETRON 4 MG ORAL DISINTEGRATING TAB PO ONE (15:20)
[2021-07-07 15:42] VITALS: BP 130/68
== END 2021-07-07 15:54 | disposition home or self-care (01) ==
LOC: M ED 01:29
DX: F60.3 Borderline personality disorder (principal); Z73.89 Other problems related to life management difficulty; F33.1 Major depressive disorder, recurrent, moderate; K08.89 Other specified disorders of teeth and supporting structures; Z79.899 Other long term (current) drug therapy
CPT/HCPCS: 36415; 80048; 80076; 80143; 80307; 82077; 84443; 84703; 85027; 87631; 93005; 99284; Q0162

== ENCOUNTER 2021-07-09 23:15 | Emergency (ER) | payer OTHER ==
[~2021-07-09] VITALS: Ht 167.6 cm; Wt 134.6 kg
[~2021-07-09 23:15] MED LIST changes: +CITA10TA5; +CITA10TA5 PO; -CITA10TA7; -CITA10TA7 PO; +HALO5TA PO; -HALO5TAB33 PO; +LATU80TA PO; -LATU80TA2 PO; +MONT10TA10 PO; -MONT10TA97 PO
[2021-07-10 00:29] LABS: AMPHETAMINES LEVEL URINE NEGATIVE (NEGATIVE); BARBITURATES URINE NEGATIVE (NEGATIVE); BENZODIAZEPINES URINE NEGATIVE (NEGATIVE); CANNABINOIDS URINE NEGATIVE (NEGATIVE); COCAINE METABOLITE URINE NEGATIVE (NEGATIVE); METHADONE URINE NEGATIVE (NEGATIVE); OPIATES URINE NEGATIVE (NEGATIVE); PHENCYCLIDINE URINE NEGATIVE (NEGATIVE)
[2021-07-10 00:30] LABS: HEMATOCRIT 37.8 % (36.0-47.0); HEMOGLOBIN 12.4 g/dl (12.0-15.5); MEAN CORPUSCULAR HEMOGLOBIN 29.2 pg (27.0-33.0); MEAN CORPUSCULAR HGB CONC 32.8 g/dl (32.0-36.5); MEAN CORPUSCULAR VOLUME 89.2 fl (80.0-96.0); PLATELET COUNT, AUTOMATED 228 10^3/uL (150-450); RED BLOOD COUNT 4.24 10^6/uL (4.00-5.40); WHITE BLOOD COUNT 8.8 10^3/uL (4.0-10.0)
[2021-07-10 00:36] LABS: HCG, SERUM QUALITATIVE NEGATIVE (NEGATIVE)
[2021-07-10 01:00] LABS: ACETAMINOPHEN LEVEL < 2.0 UG/ML (10.0-30.0); ALBUMIN 3.7 GM/DL (3.2-5.2); ALT/SGPT 64 U/L (12-78); BILIRUBIN,DIRECT < 0.1 MG/DL (0.0-0.2); BILIRUBIN,TOTAL 0.2 MG/DL (0.2-1.0); BLOOD UREA NITROGEN 18 MG/DL (7-18); CARBON DIOXIDE LEVEL 23 MEQ/L (21-32); CHLORIDE LEVEL 108 MEQ/L (98-107); CREATININE FOR GFR 0.58 MG/DL (0.55-1.30); ETHYL ALCOHOL (ETHANOL) 0.005 % (0.000-0.010); GLUCOSE, FASTING 109 MG/DL (70-100); POTASSIUM SERUM 4.3 MEQ/L (3.5-5.1); SALICYLATE LEVEL < 1.7 MG/DL (5.0-30.0); SODIUM LEVEL 139 MEQ/L (136-145); TOTAL PROTEIN 7.2 GM/DL (6.4-8.2)
[2021-07-10 11:54] LABS: RSV AMPLIFICATION NEGATIVE (NEGATIVE)
[2021-07-10] MEDS ORDERED: LORazepam 1 MG TAB PO ONE (12:10)
--- NOTE | 2021-07-10 18:21 | ECGEPIP ---
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
[2021-07-10] MEDS ORDERED: ACETAMINOPHEN TAB 650MG DOSE (2X325MG) PO ONE (19:20)
[2021-07-10 21:06] VITALS: BP 133/63
== END 2021-07-10 21:19 ==
LOC: M ED 23:15
DX: R45.851 Suicidal ideations (principal)

== ENCOUNTER 2021-07-20 02:23 | Emergency (ER) | payer OTHER ==
[~2021-07-20] VITALS: Ht 167.6 cm; Wt 104.5 kg
[~2021-07-20 02:23] MED LIST changes: -CITA10TA5; -CITA10TA5 PO; +CITA10TA7; +CITA10TA7 PO; -HALO5TA PO; +HALO5TAB33 PO; -MONT10TA10 PO; +MONT10TA97 PO
[2021-07-20 03:14] LABS: HEMATOCRIT 38.5 % (36.0-47.0); HEMOGLOBIN 12.7 g/dl (12.0-15.5); MEAN CORPUSCULAR HEMOGLOBIN 29.2 pg (27.0-33.0); MEAN CORPUSCULAR VOLUME 88.5 fl (80.0-96.0); PLATELET COUNT, AUTOMATED 290 10^3/uL (150-450); RED BLOOD COUNT 4.35 10^6/uL (4.00-5.40)
[2021-07-20 03:34] LABS: HCG, SERUM QUALITATIVE NEGATIVE (NEGATIVE)
[2021-07-20 03:45] LABS: ACETAMINOPHEN LEVEL < 2.0 UG/ML (10.0-30.0); ALBUMIN 3.8 GM/DL (3.2-5.2); ALT/SGPT 52 U/L (12-78); BILIRUBIN,DIRECT 0.1 MG/DL (0.0-0.2); BILIRUBIN,TOTAL 0.3 MG/DL (0.2-1.0); BLOOD UREA NITROGEN 24 MG/DL (7-18); CALCIUM LEVEL 9.3 MG/DL (8.5-10.1); CARBON DIOXIDE LEVEL 26 MEQ/L (21-32); CHLORIDE LEVEL 107 MEQ/L (98-107); CREATININE FOR GFR 0.67 MG/DL (0.55-1.30); ETHYL ALCOHOL (ETHANOL) < 0.003 % (0.000-0.010); GLUCOSE, FASTING 106 MG/DL (70-100); POTASSIUM SERUM 4.2 MEQ/L (3.5-5.1); SALICYLATE LEVEL < 1.7 MG/DL (5.0-30.0); SODIUM LEVEL 140 MEQ/L (136-145); TOTAL PROTEIN 7.7 GM/DL (6.4-8.2)
[2021-07-20 03:51] LABS: AMPHETAMINES LEVEL URINE NEGATIVE (NEGATIVE); BARBITURATES URINE NEGATIVE (NEGATIVE); BENZODIAZEPINES URINE NEGATIVE (NEGATIVE); CANNABINOIDS URINE NEGATIVE (NEGATIVE); COCAINE METABOLITE URINE NEGATIVE (NEGATIVE); METHADONE URINE NEGATIVE (NEGATIVE); OPIATES URINE NEGATIVE (NEGATIVE); PHENCYCLIDINE URINE NEGATIVE (NEGATIVE)
[2021-07-20 04:17] LABS: RSV AMPLIFICATION NEGATIVE (NEGATIVE)
[2021-07-20] MEDS ORDERED: ACETAMINOPHEN TAB 650MG DOSE (2X325MG) PO ONE (09:50)
[2021-07-20 13:00] VITALS: BP 133/67
== END 2021-07-20 13:03 | disposition home or self-care (01) ==
LOC: M ED 02:23
DX: Z76.5 Malingerer [conscious simulation] (principal); F31.9 Bipolar disorder, unspecified; F43.10 Post-traumatic stress disorder, unspecified; F90.9 Attention-deficit hyperactivity disorder, unspecified type; F19.10 Other psychoactive substance abuse, uncomplicated

== ENCOUNTER 2021-07-28 16:56 | Emergency (ER) | payer OTHER ==
[~2021-07-28] VITALS: Ht 167.6 cm; Wt 104.5 kg
[2021-07-28 17:10] VITALS: BP 145/77
[2021-07-29] MEDS ORDERED: BACI500O21 TOP (14:14)
== END 2021-07-28 19:55 | disposition left against medical advice (07) ==
LOC: M ED 16:56
DX: R45.851 Suicidal ideations (principal); Z20.822 Contact with and (suspected) exposure to COVID-19; J02.9 Acute pharyngitis, unspecified; Z53.9 Procedure and treatment not carried out, unspecified reason; F32.A Depression, unspecified; F41.9 Anxiety disorder, unspecified; F90.9 Attention-deficit hyperactivity disorder, unspecified type; F60.3 Borderline personality disorder; Z79.899 Other long term (current) drug therapy

== ENCOUNTER 2021-07-28 20:39 | Emergency (ER) | payer OTHER ==
[~2021-07-28] VITALS: Ht 167.6 cm; Wt 104.5 kg
[2021-07-28] MEDS ORDERED: HALOPERIDOL 5MG/ML VIAL (J1630 PER 1) As Ordered ONE (20:52)
[2021-07-28] MEDS ORDERED: diphenhydrAMINE 50MG/ML VIAL (J1200) As Ordered ONE (20:52)
[2021-07-28] MEDS ORDERED: LORazepam 2 MG/ML VIAL As Ordered ONE (20:53)
[2021-07-28] MEDS ORDERED: HALOPERIDOL 5MG/ML VIAL (J1630 PER 1) IM STA (20:59)
[2021-07-28] MEDS ORDERED: diphenhydrAMINE 50MG/ML VIAL (J1200) IM STA (20:59)
[2021-07-28] MEDS ORDERED: LORazepam 2 MG/ML VIAL IM STA (20:59)
[2021-07-28 21:51] LABS: HEMATOCRIT 36.3 % (36.0-47.0); HEMOGLOBIN 11.6 g/dl (12.0-15.5); MEAN CORPUSCULAR HEMOGLOBIN 28.8 pg (27.0-33.0); MEAN CORPUSCULAR VOLUME 90.1 fl (80.0-96.0); PLATELET COUNT, AUTOMATED 246 10^3/uL (150-450); RED BLOOD COUNT 4.03 10^6/uL (4.00-5.40); WHITE BLOOD COUNT 7.8 10^3/uL (4.0-10.0)
[2021-07-28 22:18] LABS: HCG, SERUM QUALITATIVE NEGATIVE (NEGATIVE)
[2021-07-28 22:33] LABS: AMPHETAMINES LEVEL URINE NEGATIVE (NEGATIVE); BARBITURATES URINE NEGATIVE (NEGATIVE); BENZODIAZEPINES URINE NEGATIVE (NEGATIVE); CANNABINOIDS URINE NEGATIVE (NEGATIVE); COCAINE METABOLITE URINE NEGATIVE (NEGATIVE); METHADONE URINE NEGATIVE (NEGATIVE); OPIATES URINE NEGATIVE (NEGATIVE); PHENCYCLIDINE URINE NEGATIVE (NEGATIVE)
[2021-07-28 22:38] LABS: ACETAMINOPHEN LEVEL < 2.0 UG/ML (10.0-30.0); ALBUMIN 3.4 GM/DL (3.2-5.2); ALT/SGPT 45 U/L (12-78); BILIRUBIN,DIRECT 0.1 MG/DL (0.0-0.2); BILIRUBIN,TOTAL 0.1 MG/DL (0.2-1.0); BLOOD UREA NITROGEN 16 MG/DL (7-18); CALCIUM LEVEL 8.7 MG/DL (8.5-10.1); CARBON DIOXIDE LEVEL 26 MEQ/L (21-32); CHLORIDE LEVEL 111 MEQ/L (98-107); CREATININE FOR GFR 0.64 MG/DL (0.55-1.30); ETHYL ALCOHOL (ETHANOL) < 0.003 % (0.000-0.010); GLUCOSE, FASTING 110 MG/DL (70-100); POTASSIUM SERUM 3.8 MEQ/L (3.5-5.1); SALICYLATE LEVEL < 1.7 MG/DL (5.0-30.0); SODIUM LEVEL 142 MEQ/L (136-145); THYROID STIMULATING HORMONE 0.995 uIU/ML (0.463-3.98); TOTAL PROTEIN 6.8 GM/DL (6.4-8.2)
[2021-07-29] MEDS ORDERED: BACITRACIN OINTMENT 30GM TUBE TOP SCH (09:00)
[2021-07-29] MEDS ORDERED: BACI500O21 TOP (14:14)
[2021-07-29 14:33] VITALS: BP 133/77
== END 2021-07-29 14:27 | disposition home or self-care (01) ==
LOC: M ED 20:39
DX: F32.A Depression, unspecified (principal); R45.89 Other symptoms and signs involving emotional state; F41.9 Anxiety disorder, unspecified; F90.9 Attention-deficit hyperactivity disorder, unspecified type; F60.3 Borderline personality disorder; J06.9 Acute upper respiratory infection, unspecified; Z88.8 Allergy status to other drugs, medicaments and biological substances; Z79.899 Other long term (current) drug therapy
CPT/HCPCS: 80048; 80076; 80143; 80307; 82077; 84443; 84703; 85027; 87798; 96372; 99285; J1200; J1630; J2060

== ENCOUNTER 2021-08-18 21:40 | Emergency (ER) | payer OTHER ==
[~2021-08-18] VITALS: Ht 167.6 cm; Wt 104.5 kg
[~2021-08-18 21:40] MED LIST changes: +BACI500O21 TOP; -LATU80TA PO; +LATU80TA2 PO
[2021-08-18 22:30] LABS: HEMATOCRIT 38.2 % (36.0-47.0); HEMOGLOBIN 12.3 g/dl (12.0-15.5); MEAN CORPUSCULAR HGB CONC 32.2 g/dl (32.0-36.5); MEAN CORPUSCULAR VOLUME 90.1 fl (80.0-96.0); PLATELET COUNT, AUTOMATED 239 10^3/uL (150-450); RED BLOOD COUNT 4.24 10^6/uL (4.00-5.40); WHITE BLOOD COUNT 8.3 10^3/uL (4.0-10.0)
[2021-08-18 22:53] LABS: AMPHETAMINES LEVEL URINE NEGATIVE (NEGATIVE); BARBITURATES URINE NEGATIVE (NEGATIVE); BENZODIAZEPINES URINE NEGATIVE (NEGATIVE); CANNABINOIDS URINE NEGATIVE (NEGATIVE); COCAINE METABOLITE URINE NEGATIVE (NEGATIVE); METHADONE URINE NEGATIVE (NEGATIVE); OPIATES URINE NEGATIVE (NEGATIVE); PHENCYCLIDINE URINE NEGATIVE (NEGATIVE)
[2021-08-18 23:04] LABS: ACETAMINOPHEN LEVEL < 2.0 UG/ML (10.0-30.0); ALBUMIN 3.8 GM/DL (3.2-5.2); ALT/SGPT 39 U/L (12-78); BILIRUBIN,DIRECT 0.1 MG/DL (0.0-0.2); BILIRUBIN,TOTAL 0.2 MG/DL (0.2-1.0); BLOOD UREA NITROGEN 19 MG/DL (7-18); CARBON DIOXIDE LEVEL 28 MEQ/L (21-32); CHLORIDE LEVEL 104 MEQ/L (98-107); CREATININE FOR GFR 0.67 MG/DL (0.55-1.30); ETHYL ALCOHOL (ETHANOL) 0.003 % (0.000-0.010); GLUCOSE, FASTING 94 MG/DL (70-100); POTASSIUM SERUM 4.1 MEQ/L (3.5-5.1); SALICYLATE LEVEL 2.5 MG/DL (5.0-30.0); SODIUM LEVEL 138 MEQ/L (136-145); TOTAL PROTEIN 7.5 GM/DL (6.4-8.2)
[2021-08-18 23:20] LABS: HCG, SERUM QUALITATIVE NEGATIVE (NEGATIVE)
[2021-08-19] MEDS ORDERED: DULO60CA35 PO (06:30)
[2021-08-19] MEDS ORDERED: LOXA10CA PO (06:30)
[2021-08-19] MEDS ORDERED: CLON-412 PO (06:30)
[2021-08-19] MEDS ORDERED: HOME MED LIST COMPLETE! XX SCH (06:30)
[2021-08-19 07:09] LABS: RSV AMPLIFICATION NEGATIVE (NEGATIVE)
[2021-08-19] MEDS ORDERED: KETOROLAC TROMETHAMINE 10 MG TAB PO ONE (08:20)
[2021-08-19] MEDS ORDERED: diphenhydrAMINE 50MG CAP PO ONE ×2 (08:20→22:50)
[2021-08-19] MEDS: cloNIDine 0.1MG TABLET PO SCH ×2 (11:08→21:22)
[2021-08-19] MEDS: DULoxetine 30MG CAPSULE (CYMBALTA) PO SCH (11:08)
[2021-08-19] MEDS: NICOTINE POLACRILEX 2 MG GUM PO PRN ×3 (11:10→20:10)
[2021-08-19] MEDS ORDERED: ONDANSETRON 4 MG ORAL DISINTEGRATING TAB PO ONE (18:40)
[2021-08-19] MEDS ORDERED: CETIRIZINE (ZyrTEC) 10 MG TAB PO ONE (22:30)
[2021-08-20] MEDS: NICOTINE POLACRILEX 2 MG GUM PO PRN ×3 (06:46→18:52)
[2021-08-20] MEDS ORDERED: CETIRIZINE (ZyrTEC) 10 MG TAB PO ONE (08:35)
[2021-08-20] MEDS: DULoxetine 30MG CAPSULE (CYMBALTA) PO SCH (09:02)
[2021-08-20] MEDS: cloNIDine 0.1MG TABLET PO SCH ×2 (09:02→21:00)
[2021-08-20] MEDS ORDERED: OLANZapine ORAL DISINTEGRATING TAB 5MG PO ONE (16:40)
[2021-08-21] MEDS: DULoxetine 30MG CAPSULE (CYMBALTA) PO SCH (08:08)
[2021-08-21] MEDS: NICOTINE POLACRILEX 2 MG GUM PO PRN (08:09)
[2021-08-21 08:12] VITALS: BP 130/65
[2021-08-21] MEDS: cloNIDine 0.1MG TABLET PO SCH (08:12)
[2021-08-21 15:24] VITALS: BP 133/74
== END 2021-08-21 15:36 | disposition home or self-care (01) ==
LOC: M ED 21:40
DX: R45.851 Suicidal ideations (principal); F31.89 Other bipolar disorder; F41.9 Anxiety disorder, unspecified; Z88.8 Allergy status to other drugs, medicaments and biological substances
CPT/HCPCS: 36415; 80048; 80076; 80143; 80307; 82077; 84443; 84703; 85027; 87631; 93005; 99285; Q0162

== ENCOUNTER 2021-08-25 16:24 | Emergency (ER) | payer OTHER ==
[~2021-08-25 16:24] MED LIST changes: +CLON-412 PO; +DULO60CA35 PO; +LOXA10CA PO
[2021-08-25 19:44] LABS: HEMATOCRIT 37.9 % (36.0-47.0); HEMOGLOBIN 12.4 g/dl (12.0-15.5); MEAN CORPUSCULAR HEMOGLOBIN 29.2 pg (27.0-33.0); MEAN CORPUSCULAR HGB CONC 32.7 g/dl (32.0-36.5); MEAN CORPUSCULAR VOLUME 89.2 fl (80.0-96.0); PLATELET COUNT, AUTOMATED 284 10^3/uL (150-450); RED BLOOD COUNT 4.25 10^6/uL (4.00-5.40); WHITE BLOOD COUNT 10.5 10^3/uL (4.0-10.0)
[2021-08-25 20:11] LABS: AMPHETAMINES LEVEL URINE NEGATIVE (NEGATIVE); BARBITURATES URINE NEGATIVE (NEGATIVE); BENZODIAZEPINES URINE NEGATIVE (NEGATIVE); CANNABINOIDS URINE NEGATIVE (NEGATIVE); COCAINE METABOLITE URINE NEGATIVE (NEGATIVE); METHADONE URINE NEGATIVE (NEGATIVE); OPIATES URINE NEGATIVE (NEGATIVE); PHENCYCLIDINE URINE NEGATIVE (NEGATIVE)
[2021-08-25 20:16] LABS: ACETAMINOPHEN LEVEL < 2.0 UG/ML (10.0-30.0); ALBUMIN 3.7 GM/DL (3.2-5.2); ALT/SGPT 46 U/L (12-78); BILIRUBIN,DIRECT 0.1 MG/DL (0.0-0.2); BILIRUBIN,TOTAL 0.3 MG/DL (0.2-1.0); BLOOD UREA NITROGEN 16 MG/DL (7-18); CARBON DIOXIDE LEVEL 25 MEQ/L (21-32); CHLORIDE LEVEL 107 MEQ/L (98-107); CREATININE FOR GFR 0.73 MG/DL (0.55-1.30); ETHYL ALCOHOL (ETHANOL) < 0.003 % (0.000-0.010); GLUCOSE, FASTING 85 MG/DL (70-100); POTASSIUM SERUM 4.1 MEQ/L (3.5-5.1); SALICYLATE LEVEL 2.2 MG/DL (5.0-30.0); SODIUM LEVEL 140 MEQ/L (136-145); TOTAL PROTEIN 7.3 GM/DL (6.4-8.2)
[2021-08-25 20:19] LABS: RSV AMPLIFICATION NEGATIVE (NEGATIVE)
[2021-08-26] MEDS ORDERED: ACETAMINOPHEN 325 MG TAB PO ONE ×2 (07:35→19:55)
[2021-08-27] MEDS: DULoxetine 30MG CAPSULE (CYMBALTA) PO SCH (08:59)
[2021-08-27] MEDS: cloNIDine 0.1MG TABLET PO SCH ×2 (08:59→21:00)
[2021-08-27] MEDS: NICOTINE 21MG/24HR 1 EA TRANSDERMAL TD SCH (09:22)
[2021-08-27 21:00] VITALS: BP 177/73
[2021-08-28] MEDS ORDERED: ACETAMINOPHEN TAB 650MG DOSE (2X325MG) PO ONE (03:35)
[2021-08-28] MEDS: NICOTINE 21MG/24HR 1 EA TRANSDERMAL TD SCH (08:09)
[2021-08-28] MEDS: DULoxetine 30MG CAPSULE (CYMBALTA) PO SCH (08:09)
[2021-08-28] MEDS: cloNIDine 0.1MG TABLET PO SCH (08:09)
[2021-08-28] MEDS ORDERED: NICOTINE 21MG/24HR 1 EA TRANSDERMAL TD SCH (09:00)
[2021-08-28] MEDS ORDERED: LORazepam 2 MG TAB PO STA (10:14)
[2021-08-28] MEDS ORDERED: HOME MED LIST COMPLETE! XX SCH (11:05)
[2021-08-28 13:29] VITALS: BP 135/63
== END 2021-08-28 15:21 | disposition home or self-care (01) ==
LOC: M ED 16:24
DX: F60.3 Borderline personality disorder (principal)

== ENCOUNTER 2021-08-31 03:40 | Emergency (ER) | payer OTHER ==
[~2021-08-31] VITALS: Ht 167.6 cm; Wt 122.7 kg
[2021-08-31] MEDS ORDERED: NS 1,000 ML IV ONE (03:45)
[2021-08-31 04:27] LABS: BASO % 0.3 % (0.0-1.0); EOS # 0.1 10^3/uL (0.0-0.5); EOS % 1.2 % (0.0-3.0); HEMATOCRIT 38.5 % (36.0-47.0); HEMOGLOBIN 12.5 g/dl (12.0-15.5); LYMPH # 3.2 10^3/uL (1.5-5.0); LYMPH % 35.3 % (24.0-44.0); MEAN CORPUSCULAR HGB CONC 32.5 g/dl (32.0-36.5); MEAN CORPUSCULAR VOLUME 89.3 fl (80.0-96.0); MONO # 0.8 10^3/uL (0.0-0.8); MONO % 8.6 % (2.0-8.0); NEUTROPHILS # 4.9 10^3/uL (1.5-8.5); NEUTROPHILS % 54.2 % (36.0-66.0); PLATELET COUNT, AUTOMATED 271 10^3/uL (150-450); RED BLOOD COUNT 4.31 10^6/uL (4.00-5.40); WHITE BLOOD COUNT 9.1 10^3/uL (4.0-10.0)
[2021-08-31 04:52] LABS: HCG, SERUM QUALITATIVE NEGATIVE (NEGATIVE)
[2021-08-31] MEDS ORDERED: CHARCOAL ACTIVATED LIQUID 25 GM/120 ML BTL PO ONE (04:55)
[2021-08-31 05:03] LABS: ACETAMINOPHEN LEVEL < 2.0 UG/ML (10.0-30.0); ALBUMIN 3.8 GM/DL (3.2-5.2); ALT/SGPT 56 U/L (12-78); BILIRUBIN,DIRECT 0.1 MG/DL (0.0-0.2); BILIRUBIN,TOTAL 0.4 MG/DL (0.2-1.0); BLOOD UREA NITROGEN 22 MG/DL (7-18); CALCIUM LEVEL 8.7 MG/DL (8.5-10.1); CARBON DIOXIDE LEVEL 25 MEQ/L (21-32); CHLORIDE LEVEL 105 MEQ/L (98-107); CREATININE FOR GFR 0.69 MG/DL (0.55-1.30); ETHYL ALCOHOL (ETHANOL) < 0.003 % (0.000-0.010); GLUCOSE, FASTING 100 MG/DL (70-100); POTASSIUM SERUM 4.1 MEQ/L (3.5-5.1); SALICYLATE LEVEL < 1.7 MG/DL (5.0-30.0); SODIUM LEVEL 140 MEQ/L (136-145); TOTAL PROTEIN 7.8 GM/DL (6.4-8.2)
[2021-08-31 10:55] LABS: RSV AMPLIFICATION NEGATIVE (NEGATIVE)
[2021-08-31] MEDS ORDERED: COMMENTS (17:38)
[2021-08-31] MEDS ORDERED: HOME MED LIST COMPLETE! XX SCH (17:40)
[2021-09-01 06:32] LABS: AMPHETAMINES LEVEL URINE NEGATIVE (NEGATIVE); BARBITURATES URINE NEGATIVE (NEGATIVE); BENZODIAZEPINES URINE NEGATIVE (NEGATIVE); CANNABINOIDS URINE NEGATIVE (NEGATIVE); COCAINE METABOLITE URINE NEGATIVE (NEGATIVE); METHADONE URINE NEGATIVE (NEGATIVE); OPIATES URINE NEGATIVE (NEGATIVE); PHENCYCLIDINE URINE NEGATIVE (NEGATIVE)
[2021-09-02] MEDS ORDERED: DULoxetine 30MG CAPSULE (CYMBALTA) PO ONE (09:10)
[2021-09-02] MEDS ORDERED: cloNIDine 0.1MG TABLET PO ONE (09:10)
[2021-09-02] MEDS ORDERED: OLANZapine 10 MG TAB PO ONE (21:00)
[2021-09-02] MEDS ORDERED: ACETAMINOPHEN TAB 650MG DOSE (2X325MG) PO ONE (21:00)
[2021-09-03 07:38] VITALS: BP 187/114
[2021-09-03 07:39] VITALS: BP 187/114
[2021-09-03] MEDS ORDERED: cloNIDine 0.1MG TABLET PO SCH (09:00)
[2021-09-03] MEDS ORDERED: DULoxetine 30MG CAPSULE (CYMBALTA) PO SCH (09:00)
== END 2021-09-03 08:17 | disposition home or self-care (01) ==
LOC: M ED 03:40
DX: R45.89 Other symptoms and signs involving emotional state (principal)

== ENCOUNTER 2021-09-09 14:57 | Emergency (ER) | payer OTHER ==
[~2021-09-09] VITALS: Ht 167.6 cm; Wt 104.5 kg
[2021-09-09 18:04] VITALS: BP 147/92
== END 2021-09-09 18:06 | disposition home or self-care (01) ==
LOC: M ED 14:57
DX: R45.89 Other symptoms and signs involving emotional state (principal); F60.3 Borderline personality disorder

== ENCOUNTER 2021-09-11 12:23 | Emergency (ER) | payer OTHER ==
[2021-09-11 16:03] VITALS: BP 128/80
== END 2021-09-11 16:16 | disposition home or self-care (01) ==
LOC: M ED 12:23
DX: R45.851 Suicidal ideations (principal); Z73.4 Inadequate social skills, not elsewhere classified; Z76.5 Malingerer [conscious simulation]

== ENCOUNTER 2021-09-15 16:29 | Emergency (ER) | payer OTHER ==
[~2021-09-15] VITALS: Ht 167.6 cm; Wt 136.5 kg
[2021-09-15] MEDS ORDERED: ABIL1TAB11 PO (16:35)
[2021-09-15 18:22] LABS: HEMOGLOBIN 12.1 g/dl (12.0-15.5); MEAN CORPUSCULAR HEMOGLOBIN 28.6 pg (27.0-33.0); MEAN CORPUSCULAR HGB CONC 31.8 g/dl (32.0-36.5); MEAN CORPUSCULAR VOLUME 89.8 fl (80.0-96.0); PLATELET COUNT, AUTOMATED 255 10^3/uL (150-450); RED BLOOD COUNT 4.23 10^6/uL (4.00-5.40); WHITE BLOOD COUNT 9.9 10^3/uL (4.0-10.0)
[2021-09-15 18:30] LABS: AMPHETAMINES LEVEL URINE NEGATIVE (NEGATIVE); BARBITURATES URINE NEGATIVE (NEGATIVE); BENZODIAZEPINES URINE NEGATIVE (NEGATIVE); CANNABINOIDS URINE NEGATIVE (NEGATIVE); COCAINE METABOLITE URINE NEGATIVE (NEGATIVE); METHADONE URINE NEGATIVE (NEGATIVE); OPIATES URINE NEGATIVE (NEGATIVE); PHENCYCLIDINE URINE NEGATIVE (NEGATIVE)
[2021-09-15 18:44] LABS: HCG, SERUM QUALITATIVE NEGATIVE (NEGATIVE)
[2021-09-15 18:48] LABS: ACETAMINOPHEN LEVEL < 2.0 UG/ML (10.0-30.0); ALBUMIN 3.7 GM/DL (3.2-5.2); ALT/SGPT 77 U/L (12-78); BILIRUBIN,DIRECT 0.1 MG/DL (0.0-0.2); BILIRUBIN,TOTAL 0.3 MG/DL (0.2-1.0); BLOOD UREA NITROGEN 16 MG/DL (7-18); CALCIUM LEVEL 9.4 MG/DL (8.5-10.1); CARBON DIOXIDE LEVEL 28 MEQ/L (21-32); CHLORIDE LEVEL 106 MEQ/L (98-107); CREATININE FOR GFR 0.62 MG/DL (0.55-1.30); GLUCOSE, FASTING 93 MG/DL (70-100); POTASSIUM SERUM 4.3 MEQ/L (3.5-5.1); SALICYLATE LEVEL < 1.7 MG/DL (5.0-30.0); SODIUM LEVEL 139 MEQ/L (136-145); TOTAL PROTEIN 7.4 GM/DL (6.4-8.2)
[2021-09-15 18:49] LABS: ETHYL ALCOHOL (ETHANOL) < 0.003 % (0.000-0.010)
[2021-09-15] MEDS ORDERED: HOME MED LIST COMPLETE! XX SCH (19:45)
[2021-09-16] MEDS ORDERED: ACETAMINOPHEN TAB 650MG DOSE (2X325MG) PO ONE ×2 (07:30→15:35)
[2021-09-16] MEDS ORDERED: LORazepam 2 MG TAB PO ONE (20:35)
[2021-09-17] MEDS ORDERED: LORATADINE 10 MG TAB PO ONE (08:35)
[2021-09-17 09:57] VITALS: BP 158/86
== END 2021-09-17 10:00 | disposition home or self-care (01) ==
LOC: M ED 16:29
DX: F60.3 Borderline personality disorder (principal); R45.851 Suicidal ideations; F32.A Depression, unspecified; Z59.00 Homelessness unspecified

== ENCOUNTER 2021-09-17 18:54 | Emergency (ER) | payer OTHER ==
[~2021-09-17] VITALS: Ht 167.6 cm; Wt 136.5 kg
[2021-09-18] MEDS ORDERED: HOME MED LIST COMPLETE! XX SCH (00:30)
[2021-09-18 10:09] LABS: HEMATOCRIT 39.5 % (36.0-47.0); HEMOGLOBIN 13.1 g/dl (12.0-15.5); MEAN CORPUSCULAR HEMOGLOBIN 29.1 pg (27.0-33.0); MEAN CORPUSCULAR HGB CONC 33.2 g/dl (32.0-36.5); MEAN CORPUSCULAR VOLUME 87.8 fl (80.0-96.0); PLATELET COUNT, AUTOMATED 248 10^3/uL (150-450); WHITE BLOOD COUNT 6.7 10^3/uL (4.0-10.0)
[2021-09-18 10:29] LABS: AMPHETAMINES LEVEL URINE NEGATIVE (NEGATIVE); BARBITURATES URINE NEGATIVE (NEGATIVE); BENZODIAZEPINES URINE NEGATIVE (NEGATIVE); CANNABINOIDS URINE NEGATIVE (NEGATIVE); COCAINE METABOLITE URINE NEGATIVE (NEGATIVE); METHADONE URINE NEGATIVE (NEGATIVE); OPIATES URINE NEGATIVE (NEGATIVE); PHENCYCLIDINE URINE NEGATIVE (NEGATIVE)
[2021-09-18 10:44] LABS: HCG, SERUM QUALITATIVE NEGATIVE (NEGATIVE)
[2021-09-18 11:02] LABS: ACETAMINOPHEN LEVEL < 2.0 UG/ML (10.0-30.0); ALBUMIN 3.7 GM/DL (3.2-5.2); ALT/SGPT 73 U/L (12-78); BILIRUBIN,DIRECT 0.2 MG/DL (0.0-0.2); BILIRUBIN,TOTAL 0.5 MG/DL (0.2-1.0); BLOOD UREA NITROGEN 18 MG/DL (7-18); CALCIUM LEVEL 9.4 MG/DL (8.5-10.1); CARBON DIOXIDE LEVEL 29 MEQ/L (21-32); CHLORIDE LEVEL 106 MEQ/L (98-107); CREATININE FOR GFR 0.65 MG/DL (0.55-1.30); ETHYL ALCOHOL (ETHANOL) < 0.003 % (0.000-0.010); GLUCOSE, FASTING 104 MG/DL (70-100); POTASSIUM SERUM 4.3 MEQ/L (3.5-5.1); SALICYLATE LEVEL < 1.7 MG/DL (5.0-30.0); SODIUM LEVEL 140 MEQ/L (136-145); THYROID STIMULATING HORMONE 0.748 uIU/ML (0.463-3.98); TOTAL PROTEIN 7.4 GM/DL (6.4-8.2)
[2021-09-18] MEDS ORDERED: CETIRIZINE (ZyrTEC) 10 MG TAB PO ONE (13:45)
[2021-09-19] MEDS ORDERED: CARBAMIDE PEROXIDE 6.5% OTIC SOLN 15ML AU PRN (08:20)
[2021-09-19] MEDS: CETIRIZINE (ZyrTEC) 10 MG TAB PO SCH (08:28)
[2021-09-19] MEDS ORDERED: OLANZapine 5 MG TAB PO ONE (20:55)
[2021-09-20] MEDS: CETIRIZINE (ZyrTEC) 10 MG TAB PO SCH (09:41)
[2021-09-20 10:26] VITALS: BP 135/66
== END 2021-09-20 10:32 ==
LOC: M ED 18:54
DX: Z76.5 Malingerer [conscious simulation] (principal); F60.3 Borderline personality disorder; Z88.8 Allergy status to other drugs, medicaments and biological substances; Z79.899 Other long term (current) drug therapy

== ENCOUNTER 2021-09-22 15:40 | Emergency (ER) | payer OTHER ==
[~2021-09-22] VITALS: Ht 172.7 cm; Wt 159.1 kg
[2021-09-22 16:23] LABS: HEMATOCRIT 36.3 % (36.0-47.0); HEMOGLOBIN 12.2 g/dl (12.0-15.5); MEAN CORPUSCULAR HEMOGLOBIN 29.4 pg (27.0-33.0); MEAN CORPUSCULAR HGB CONC 33.6 g/dl (32.0-36.5); MEAN CORPUSCULAR VOLUME 87.5 fl (80.0-96.0); PLATELET COUNT, AUTOMATED 226 10^3/uL (150-450); RED BLOOD COUNT 4.15 10^6/uL (4.00-5.40); WHITE BLOOD COUNT 7.6 10^3/uL (4.0-10.0)
[2021-09-22 16:27] LABS: AMPHETAMINES LEVEL URINE NEGATIVE (NEGATIVE); BARBITURATES URINE NEGATIVE (NEGATIVE); BENZODIAZEPINES URINE NEGATIVE (NEGATIVE); CANNABINOIDS URINE NEGATIVE (NEGATIVE); COCAINE METABOLITE URINE NEGATIVE (NEGATIVE); METHADONE URINE NEGATIVE (NEGATIVE); OPIATES URINE NEGATIVE (NEGATIVE); PHENCYCLIDINE URINE NEGATIVE (NEGATIVE)
[2021-09-22 17:01] LABS: ACETAMINOPHEN LEVEL < 2.0 UG/ML (10.0-30.0); ALBUMIN 3.6 GM/DL (3.2-5.2); ALT/SGPT 51 U/L (12-78); BILIRUBIN,DIRECT < 0.1 MG/DL (0.0-0.2); BILIRUBIN,TOTAL 0.2 MG/DL (0.2-1.0); BLOOD UREA NITROGEN 11 MG/DL (7-18); CALCIUM LEVEL 8.8 MG/DL (8.5-10.1); CARBON DIOXIDE LEVEL 26 MEQ/L (21-32); CHLORIDE LEVEL 107 MEQ/L (98-107); CREATININE FOR GFR 0.58 MG/DL (0.55-1.30); ETHYL ALCOHOL (ETHANOL) < 0.003 % (0.000-0.010); GLUCOSE, FASTING 96 MG/DL (70-100); POTASSIUM SERUM 4.2 MEQ/L (3.5-5.1); SALICYLATE LEVEL < 1.7 MG/DL (5.0-30.0); SODIUM LEVEL 139 MEQ/L (136-145); TOTAL PROTEIN 7.1 GM/DL (6.4-8.2)
[2021-09-22 17:09] LABS: HCG, SERUM QUALITATIVE NEGATIVE (NEGATIVE)
[2021-09-22] MEDS ORDERED: ARIP1TAB PO (18:24)
[2021-09-22] MEDS ORDERED: HOME MED LIST COMPLETE! XX SCH (18:25)
[2021-09-23 07:37] VITALS: BP 164/81
[2021-09-23] MEDS ORDERED: ARIPiprazole 10 MG TAB PO SCH (09:00)
[2021-09-23] MEDS ORDERED: IBUPROFEN 400MG TAB PO ONE (14:15)
== END 2021-09-23 15:11 | disposition home or self-care (01) ==
LOC: M ED 15:40
DX: R45.89 Other symptoms and signs involving emotional state (principal); R45.851 Suicidal ideations; Z88.8 Allergy status to other drugs, medicaments and biological substances

== ENCOUNTER 2021-09-26 18:45 | Emergency (ER) | payer OTHER ==
[~2021-09-26] VITALS: Ht 167.6 cm; Wt 105.0 kg
[~2021-09-26 18:45] MED LIST changes: +ARIP1TAB PO
[2021-09-26 19:08] VITALS: BP 147/87
[2021-09-26 19:53] LABS: HEMATOCRIT 39.3 % (36.0-47.0); HEMOGLOBIN 12.9 g/dl (12.0-15.5); MEAN CORPUSCULAR HEMOGLOBIN 29.3 pg (27.0-33.0); MEAN CORPUSCULAR HGB CONC 32.8 g/dl (32.0-36.5); MEAN CORPUSCULAR VOLUME 89.3 fl (80.0-96.0); PLATELET COUNT, AUTOMATED 303 10^3/uL (150-450); WHITE BLOOD COUNT 14.9 10^3/uL (4.0-10.0)
[2021-09-26 20:10] LABS: AMPHETAMINES LEVEL URINE NEGATIVE (NEGATIVE); BARBITURATES URINE NEGATIVE (NEGATIVE); BENZODIAZEPINES URINE NEGATIVE (NEGATIVE); CANNABINOIDS URINE NEGATIVE (NEGATIVE); COCAINE METABOLITE URINE NEGATIVE (NEGATIVE); METHADONE URINE NEGATIVE (NEGATIVE); OPIATES URINE NEGATIVE (NEGATIVE); PHENCYCLIDINE URINE NEGATIVE (NEGATIVE)
[2021-09-26 20:32] LABS: ACETAMINOPHEN LEVEL < 2.0 UG/ML (10.0-30.0); ALT/SGPT 60 U/L (12-78); BILIRUBIN,DIRECT 0.2 MG/DL (0.0-0.2); BILIRUBIN,TOTAL 0.4 MG/DL (0.2-1.0); BLOOD UREA NITROGEN 15 MG/DL (7-18); CARBON DIOXIDE LEVEL 27 MEQ/L (21-32); CHLORIDE LEVEL 106 MEQ/L (98-107); CREATININE FOR GFR 0.73 MG/DL (0.55-1.30); ETHYL ALCOHOL (ETHANOL) < 0.003 % (0.000-0.010); GLUCOSE, FASTING 99 MG/DL (70-100); POTASSIUM SERUM 3.8 MEQ/L (3.5-5.1); SALICYLATE LEVEL < 1.7 MG/DL (5.0-30.0); SODIUM LEVEL 140 MEQ/L (136-145); TOTAL PROTEIN 7.7 GM/DL (6.4-8.2)
[2021-09-26 20:44] LABS: RSV AMPLIFICATION NEGATIVE (NEGATIVE)
[2021-09-26 21:07] LABS: HCG, SERUM QUALITATIVE NEGATIVE (NEGATIVE)
== END 2021-09-26 22:37 | disposition home or self-care (01) ==
LOC: M ED 18:45
DX: R45.851 Suicidal ideations (principal); F43.0 Acute stress reaction; F32.A Depression, unspecified

== ENCOUNTER 2021-12-02 15:26 | Emergency (ER) | payer OTHER ==
[2021-12-02 16:12] LABS: HEMATOCRIT 34.6 % (36.0-47.0); HEMOGLOBIN 11.5 g/dl (12.0-15.5); MEAN CORPUSCULAR HEMOGLOBIN 29.3 pg (27.0-33.0); MEAN CORPUSCULAR HGB CONC 33.2 g/dl (32.0-36.5); PLATELET COUNT, AUTOMATED 283 10^3/uL (150-450); RED BLOOD COUNT 3.93 10^6/uL (4.00-5.40); WHITE BLOOD COUNT 9.9 10^3/uL (4.0-10.0)
[2021-12-02 16:39] LABS: AMPHETAMINES LEVEL URINE NEGATIVE (NEGATIVE); BARBITURATES URINE NEGATIVE (NEGATIVE); BENZODIAZEPINES URINE NEGATIVE (NEGATIVE); CANNABINOIDS URINE NEGATIVE (NEGATIVE); COCAINE METABOLITE URINE NEGATIVE (NEGATIVE); METHADONE URINE NEGATIVE (NEGATIVE); OPIATES URINE NEGATIVE (NEGATIVE); PHENCYCLIDINE URINE NEGATIVE (NEGATIVE)
[2021-12-02 16:40] LABS: HCG, SERUM QUALITATIVE NEGATIVE (NEGATIVE)
[2021-12-02 16:47] LABS: ACETAMINOPHEN LEVEL < 2.0 UG/ML (10.0-30.0); ALT/SGPT 43 U/L (12-78); BILIRUBIN,DIRECT 0.1 MG/DL (0.0-0.2); BILIRUBIN,TOTAL 0.4 MG/DL (0.2-1.0); BLOOD UREA NITROGEN 13 MG/DL (7-18); CALCIUM LEVEL 9.5 MG/DL (8.5-10.1); CARBON DIOXIDE LEVEL 25 MEQ/L (21-32); CHLORIDE LEVEL 111 MEQ/L (98-107); CREATININE FOR GFR 0.87 MG/DL (0.55-1.30); ETHYL ALCOHOL (ETHANOL) < 0.003 % (0.000-0.010); GLOMERULAR FILTRATION RATE > 60.0 (>60); GLUCOSE, FASTING 102 MG/DL (70-100); POTASSIUM SERUM 3.9 MEQ/L (3.5-5.1); SALICYLATE LEVEL < 1.7 MG/DL (5.0-30.0); SODIUM LEVEL 138 MEQ/L (136-145); TOTAL PROTEIN 7.6 GM/DL (6.4-8.2)
[2021-12-02 18:21] LABS: RSV AMPLIFICATION NEGATIVE (NEGATIVE)
[2021-12-02] MEDS ORDERED: ABIL400I IM (23:40)
[2021-12-02] MEDS ORDERED: HOME MED LIST COMPLETE! XX SCH (23:40)
[2021-12-03 01:59] VITALS: BP 136/70
== END 2021-12-03 02:00 | disposition home or self-care (01) ==
LOC: M ED 15:26
DX: F32.A Depression, unspecified (principal); Z88.8 Allergy status to other drugs, medicaments and biological substances; Z79.899 Other long term (current) drug therapy

== ENCOUNTER 2021-12-04 17:14 | Emergency (ER) | payer OTHER ==
[~2021-12-04] VITALS: Ht 167.6 cm; Wt 100.0 kg
[2021-12-04 20:26] VITALS: BP 161/87
== END 2021-12-04 20:31 | disposition home or self-care (01) ==
LOC: M ED 17:14
DX: F60.3 Borderline personality disorder (principal); F32.A Depression, unspecified; Z88.8 Allergy status to other drugs, medicaments and biological substances; Z79.899 Other long term (current) drug therapy

== ENCOUNTER 2021-12-05 00:49 | Emergency (ER) | payer OTHER ==
[~2021-12-05] VITALS: Ht 167.6 cm; Wt 100.0 kg
[2021-12-05 01:28] LABS: HEMATOCRIT 36.5 % (36.0-47.0); HEMOGLOBIN 11.9 g/dl (12.0-15.5); MEAN CORPUSCULAR HGB CONC 32.6 g/dl (32.0-36.5); MEAN CORPUSCULAR VOLUME 88.8 fl (80.0-96.0); PLATELET COUNT, AUTOMATED 281 10^3/uL (150-450); RED BLOOD COUNT 4.11 10^6/uL (4.00-5.40)
[2021-12-05 02:01] LABS: AMPHETAMINES LEVEL URINE NEGATIVE (NEGATIVE); BARBITURATES URINE NEGATIVE (NEGATIVE); BENZODIAZEPINES URINE NEGATIVE (NEGATIVE); CANNABINOIDS URINE NEGATIVE (NEGATIVE); COCAINE METABOLITE URINE NEGATIVE (NEGATIVE); METHADONE URINE NEGATIVE (NEGATIVE); OPIATES URINE NEGATIVE (NEGATIVE); PHENCYCLIDINE URINE NEGATIVE (NEGATIVE)
[2021-12-05 02:05] LABS: RSV AMPLIFICATION NEGATIVE (NEGATIVE)
[2021-12-05 02:13] LABS: ACETAMINOPHEN LEVEL < 2.0 UG/ML (10.0-30.0); ALBUMIN 3.8 GM/DL (3.2-5.2); ALT/SGPT 36 U/L (12-78); BILIRUBIN,DIRECT < 0.1 MG/DL (0.0-0.2); BILIRUBIN,TOTAL 0.1 MG/DL (0.2-1.0); BLOOD UREA NITROGEN 20 MG/DL (7-18); CALCIUM LEVEL 9.5 MG/DL (8.5-10.1); CARBON DIOXIDE LEVEL 24 MEQ/L (21-32); CHLORIDE LEVEL 108 MEQ/L (98-107); CREATININE FOR GFR 0.75 MG/DL (0.55-1.30); ETHYL ALCOHOL (ETHANOL) < 0.003 % (0.000-0.010); GLOMERULAR FILTRATION RATE > 60.0 (>60); GLUCOSE, FASTING 98 MG/DL (70-100); POTASSIUM SERUM 4.3 MEQ/L (3.5-5.1); SALICYLATE LEVEL < 1.7 MG/DL (5.0-30.0); SODIUM LEVEL 141 MEQ/L (136-145); TOTAL PROTEIN 7.9 GM/DL (6.4-8.2)
[2021-12-05 02:29] LABS: HCG, SERUM QUALITATIVE NEGATIVE (NEGATIVE)
[2021-12-05 05:56] VITALS: BP 146/80
== END 2021-12-05 05:59 | disposition home or self-care (01) ==
LOC: M ED 00:49
DX: Z76.5 Malingerer [conscious simulation] (principal); F60.3 Borderline personality disorder; F32.A Depression, unspecified; Z88.8 Allergy status to other drugs, medicaments and biological substances; Z79.899 Other long term (current) drug therapy; Z87.891 Personal history of nicotine dependence

== ENCOUNTER 2021-12-05 11:27 | Emergency (ER) | payer OTHER ==
[2021-12-05] MEDS ORDERED: ACETAMINOPHEN TAB 650MG DOSE (2X325MG) PO ONE (13:15)
== END 2021-12-05 14:08 | disposition home or self-care (01) ==
LOC: M ED 11:27
DX: Z76.5 Malingerer [conscious simulation] (principal); Z60.9 Problem related to social environment, unspecified; F60.3 Borderline personality disorder; F32.A Depression, unspecified; Z88.8 Allergy status to other drugs, medicaments and biological substances; Z79.899 Other long term (current) drug therapy

== ENCOUNTER 2021-12-07 23:44 | Emergency (ER) | payer OTHER ==
[2021-12-08 00:54] LABS: HEMATOCRIT 35.1 % (36.0-47.0); HEMOGLOBIN 11.4 g/dl (12.0-15.5); MEAN CORPUSCULAR HEMOGLOBIN 29.5 pg (27.0-33.0); MEAN CORPUSCULAR HGB CONC 32.5 g/dl (32.0-36.5); MEAN CORPUSCULAR VOLUME 90.9 fl (80.0-96.0); PLATELET COUNT, AUTOMATED 272 10^3/uL (150-450); RED BLOOD COUNT 3.86 10^6/uL (4.00-5.40); WHITE BLOOD COUNT 9.3 10^3/uL (4.0-10.0)
[2021-12-08 01:23] LABS: RSV AMPLIFICATION NEGATIVE (NEGATIVE)
[2021-12-08 01:35] LABS: HCG, SERUM QUALITATIVE NEGATIVE (NEGATIVE)
[2021-12-08 01:42] LABS: ACETAMINOPHEN LEVEL 8.4 UG/ML (10.0-30.0); ALBUMIN 3.6 GM/DL (3.2-5.2); ALT/SGPT 44 U/L (12-78); BILIRUBIN,DIRECT 0.2 MG/DL (0.0-0.2); BILIRUBIN,TOTAL 0.3 MG/DL (0.2-1.0); BLOOD UREA NITROGEN 24 MG/DL (7-18); CALCIUM LEVEL 8.5 MG/DL (8.5-10.1); CARBON DIOXIDE LEVEL 22 MEQ/L (21-32); CHLORIDE LEVEL 111 MEQ/L (98-107); CREATININE FOR GFR 0.84 MG/DL (0.55-1.30); ETHYL ALCOHOL (ETHANOL) < 0.003 % (0.000-0.010); GLOMERULAR FILTRATION RATE > 60.0 (>60); GLUCOSE, FASTING 93 MG/DL (70-100); SALICYLATE LEVEL < 1.7 MG/DL (5.0-30.0); SODIUM LEVEL 141 MEQ/L (136-145)
[2021-12-08 01:42] LABS: AMPHETAMINES LEVEL URINE NEGATIVE (NEGATIVE); BARBITURATES URINE NEGATIVE (NEGATIVE); BENZODIAZEPINES URINE NEGATIVE (NEGATIVE); CANNABINOIDS URINE POSITIVE (NEGATIVE); COCAINE METABOLITE URINE NEGATIVE (NEGATIVE); METHADONE URINE NEGATIVE (NEGATIVE); OPIATES URINE NEGATIVE (NEGATIVE); PHENCYCLIDINE URINE NEGATIVE (NEGATIVE)
[2021-12-08 09:36] LABS: ACETAMINOPHEN LEVEL < 2.0 UG/ML (10.0-30.0); ALBUMIN 3.5 GM/DL (3.2-5.2); ALT/SGPT 43 U/L (12-78); BILIRUBIN,DIRECT 0.1 MG/DL (0.0-0.2); BILIRUBIN,TOTAL 0.3 MG/DL (0.2-1.0)
[2021-12-08] MEDS ORDERED: HOME MED LIST COMPLETE! XX SCH (23:45)
[2021-12-09 11:53] VITALS: BP 127/53
== END 2021-12-09 11:53 | disposition home or self-care (01) ==
LOC: M ED 23:44
DX: F43.9 Reaction to severe stress, unspecified (principal); R45.851 Suicidal ideations; F17.200 Nicotine dependence, unspecified, uncomplicated; F19.99 Other psychoactive substance use, unspecified with unspecified psychoactive substance-induced disorder

== ENCOUNTER 2021-12-09 14:49 | Emergency (ER) | payer OTHER ==
[~2021-12-09] VITALS: Ht 167.6 cm; Wt 135.0 kg
[2021-12-09 20:37] VITALS: BP 111/62
[2021-12-09] MEDS ORDERED: HOME MED LIST COMPLETE! XX SCH (21:30)
== END 2021-12-09 23:22 | disposition home or self-care (01) ==
LOC: M ED 14:49
DX: Z76.5 Malingerer [conscious simulation] (principal); Z59.00 Homelessness unspecified; F33.9 Major depressive disorder, recurrent, unspecified; F60.3 Borderline personality disorder; Z88.8 Allergy status to other drugs, medicaments and biological substances; Z87.891 Personal history of nicotine dependence; Z79.899 Other long term (current) drug therapy

== ENCOUNTER 2021-12-10 02:20 | Emergency (ER) | payer OTHER ==
[~2021-12-10] VITALS: Ht 167.6 cm; Wt 135.0 kg
[2021-12-10 03:04] LABS: HEMATOCRIT 35.2 % (36.0-47.0); HEMOGLOBIN 11.6 g/dl (12.0-15.5); MEAN CORPUSCULAR HEMOGLOBIN 29.3 pg (27.0-33.0); MEAN CORPUSCULAR VOLUME 88.9 fl (80.0-96.0); PLATELET COUNT, AUTOMATED 262 10^3/uL (150-450); RED BLOOD COUNT 3.96 10^6/uL (4.00-5.40); WHITE BLOOD COUNT 8.6 10^3/uL (4.0-10.0)
[2021-12-10] MEDS ORDERED: HOME MED LIST COMPLETE! XX SCH (03:05)
[2021-12-10 03:26] LABS: AMPHETAMINES LEVEL URINE NEGATIVE (NEGATIVE); BARBITURATES URINE NEGATIVE (NEGATIVE); BENZODIAZEPINES URINE NEGATIVE (NEGATIVE); CANNABINOIDS URINE POSITIVE (NEGATIVE); COCAINE METABOLITE URINE NEGATIVE (NEGATIVE); METHADONE URINE NEGATIVE (NEGATIVE); OPIATES URINE NEGATIVE (NEGATIVE); PHENCYCLIDINE URINE NEGATIVE (NEGATIVE)
[2021-12-10 03:32] LABS: HCG, SERUM QUALITATIVE NEGATIVE (NEGATIVE)
[2021-12-10 03:38] LABS: ACETAMINOPHEN LEVEL < 2.0 UG/ML (10.0-30.0); ALBUMIN 3.8 GM/DL (3.2-5.2); ALT/SGPT 48 U/L (12-78); BILIRUBIN,DIRECT 0.1 MG/DL (0.0-0.2); BILIRUBIN,TOTAL 0.3 MG/DL (0.2-1.0); BLOOD UREA NITROGEN 18 MG/DL (7-18); CALCIUM LEVEL 9.4 MG/DL (8.5-10.1); CARBON DIOXIDE LEVEL 26 MEQ/L (21-32); CHLORIDE LEVEL 110 MEQ/L (98-107); CREATININE FOR GFR 0.71 MG/DL (0.55-1.30); ETHYL ALCOHOL (ETHANOL) < 0.003 % (0.000-0.010); GLOMERULAR FILTRATION RATE > 60.0 (>60); GLUCOSE, FASTING 114 MG/DL (70-100); POTASSIUM SERUM 3.8 MEQ/L (3.5-5.1); SALICYLATE LEVEL < 1.7 MG/DL (5.0-30.0); SODIUM LEVEL 143 MEQ/L (136-145); TOTAL PROTEIN 7.5 GM/DL (6.4-8.2)
[2021-12-10 03:41] LABS: RSV AMPLIFICATION NEGATIVE (NEGATIVE)
[2021-12-10] MEDS ORDERED: NICOTINE 21MG/24HR 1 EA TRANSDERMAL TD ONE (20:30)
[2021-12-11] MEDS ORDERED: ACETAMINOPHEN 500 MG TAB PO ONE (16:00)
[2021-12-11 20:06] VITALS: BP 144/70
[2021-12-11] MEDS ORDERED: NICOTINE 21MG/24HR 1 EA TRANSDERMAL TD SCH (21:00)
[2021-12-12] MEDS ORDERED: NICOTINE 21MG/24HR 1 EA TRANSDERMAL TD SCH (09:00)
== END 2021-12-12 18:01 | disposition home or self-care (01) ==
LOC: M ED 06:28
DX: Z76.5 Malingerer [conscious simulation] (principal); Z88.8 Allergy status to other drugs, medicaments and biological substances; Z79.899 Other long term (current) drug therapy

== ENCOUNTER 2021-12-13 12:24 | Emergency (ER) | payer OTHER ==
[~2021-12-13] VITALS: Ht 167.6 cm; Wt 134.7 kg
[2021-12-13 13:54] LABS: HEMATOCRIT 39.5 % (36.0-47.0); HEMOGLOBIN 12.9 g/dl (12.0-15.5); MEAN CORPUSCULAR HEMOGLOBIN 29.3 pg (27.0-33.0); MEAN CORPUSCULAR HGB CONC 32.7 g/dl (32.0-36.5); MEAN CORPUSCULAR VOLUME 89.6 fl (80.0-96.0); PLATELET COUNT, AUTOMATED 278 10^3/uL (150-450); RED BLOOD COUNT 4.41 10^6/uL (4.00-5.40); WHITE BLOOD COUNT 7.3 10^3/uL (4.0-10.0)
[2021-12-13 14:17] LABS: AMPHETAMINES LEVEL URINE NEGATIVE (NEGATIVE); BARBITURATES URINE NEGATIVE (NEGATIVE); BENZODIAZEPINES URINE NEGATIVE (NEGATIVE); CANNABINOIDS URINE NEGATIVE (NEGATIVE); COCAINE METABOLITE URINE NEGATIVE (NEGATIVE); METHADONE URINE NEGATIVE (NEGATIVE); OPIATES URINE NEGATIVE (NEGATIVE); PHENCYCLIDINE URINE NEGATIVE (NEGATIVE)
[2021-12-13 14:31] LABS: ALT/SGPT 68 U/L (12-78); BILIRUBIN,DIRECT 0.2 MG/DL (0.0-0.2); BILIRUBIN,TOTAL 0.5 MG/DL (0.2-1.0); BLOOD UREA NITROGEN 17 MG/DL (7-18); CARBON DIOXIDE LEVEL 27 MEQ/L (21-32); CHLORIDE LEVEL 106 MEQ/L (98-107); CREATININE FOR GFR 0.71 MG/DL (0.55-1.30); ETHYL ALCOHOL (ETHANOL) < 0.003 % (0.000-0.010); GLOMERULAR FILTRATION RATE > 60.0 (>60); GLUCOSE, FASTING 96 MG/DL (70-100); POTASSIUM SERUM 4.1 MEQ/L (3.5-5.1); SALICYLATE LEVEL < 1.7 MG/DL (5.0-30.0); SODIUM LEVEL 139 MEQ/L (136-145)
[2021-12-13 14:35] LABS: HCG, SERUM QUALITATIVE NEGATIVE (NEGATIVE)
[2021-12-13 14:49] LABS: ACETAMINOPHEN LEVEL < 2.0 UG/ML (10.0-30.0)
[2021-12-13 16:10] LABS: RSV AMPLIFICATION NEGATIVE (NEGATIVE)
[2021-12-13] MEDS ORDERED: HOME MED LIST COMPLETE! XX SCH (17:10)
[2021-12-14] MEDS ORDERED: NICOTINE 21MG/24HR 1 EA TRANSDERMAL TD ONE (10:00)
[2021-12-14] MEDS ORDERED: LORATADINE 10 MG TAB PO ONE (10:00)
[2021-12-14] MEDS ORDERED: LORazepam 1 MG TAB PO STA (11:00)
[2021-12-14] MEDS ORDERED: diphenhydrAMINE 50MG/ML VIAL (J1200) IM ONE (12:40)
[2021-12-14] MEDS ORDERED: LORazepam 2 MG/ML VIAL IM ONE (12:40)
[2021-12-15] MEDS ORDERED: ONDANSETRON 4MG ORAL DISINTEGRATING TAB PO ONE (06:30)
[2021-12-15] MEDS ORDERED: ACETAMINOPHEN TAB 650MG DOSE (2X325MG) PO ONE (08:40)
[2021-12-15] MEDS ORDERED: NICOTINE 14 MG/24 HR TRANSDERMAL TD ONE (10:20)
[2021-12-15] MEDS ORDERED: CETIRIZINE (ZyrTEC) 10 MG TAB PO ONE (20:55)
[2021-12-16] MEDS ORDERED: NICOTINE 14 MG/24 HR TRANSDERMAL TD SCH (09:30)
[2021-12-16] MEDS ORDERED: ONDANSETRON 4MG ORAL DISINTEGRATING TAB PO ONE (15:05)
[2021-12-16 19:32] VITALS: BP 131/72
== END 2021-12-17 02:56 | disposition home or self-care (01) ==
LOC: M ED 12:24
DX: F33.2 Major depressive disorder, recurrent severe without psychotic features (principal); R45.851 Suicidal ideations; Z88.8 Allergy status to other drugs, medicaments and biological substances; Z79.899 Other long term (current) drug therapy
CPT/HCPCS: 36415; 80048; 80076; 80143; 80307; 82077; 84443; 84703; 85027; 87631; 93005; 96372; 99285; J1200; J2060

== ENCOUNTER 2021-12-18 07:33 | Emergency (ER) | payer OTHER ==
[~2021-12-18] VITALS: Ht 167.6 cm; Wt 137.0 kg
[2021-12-18] MEDS ORDERED: KETOROLAC TROMETHAMINE 10 MG TAB PO ONE (08:05)
[2021-12-18 09:05] VITALS: BP 137/76
== END 2021-12-18 09:00 | disposition home or self-care (01) ==
LOC: M ED 07:33
DX: S93.402A Sprain of unspecified ligament of left ankle, initial encounter (principal); X50.0XXA Overexertion from strenuous movement or load, initial encounter; Y92.9 Unspecified place or not applicable; Y93.9 Activity, unspecified; Y99.9 Unspecified external cause status; R51.9 Headache, unspecified; F90.9 Attention-deficit hyperactivity disorder, unspecified type; F31.9 Bipolar disorder, unspecified; F43.10 Post-traumatic stress disorder, unspecified; F60.3 Borderline personality disorder; F41.9 Anxiety disorder, unspecified; F32.A Depression, unspecified; Z88.8 Allergy status to other drugs, medicaments and biological substances; Z79.899 Other long term (current) drug therapy; F17.200 Nicotine dependence, unspecified, uncomplicated

== ENCOUNTER 2021-12-19 09:36 | Emergency (ER) | payer OTHER ==
[2021-12-19 12:01] LABS: HEMATOCRIT 35.7 % (36.0-47.0); HEMOGLOBIN 11.5 g/dl (12.0-15.5); MEAN CORPUSCULAR HEMOGLOBIN 28.8 pg (27.0-33.0); MEAN CORPUSCULAR HGB CONC 32.2 g/dl (32.0-36.5); MEAN CORPUSCULAR VOLUME 89.3 fl (80.0-96.0); PLATELET COUNT, AUTOMATED 241 10^3/uL (150-450); WHITE BLOOD COUNT 7.1 10^3/uL (4.0-10.0)
[2021-12-19 12:35] LABS: RSV AMPLIFICATION NEGATIVE (NEGATIVE)
[2021-12-19 12:44] LABS: AMPHETAMINES LEVEL URINE NEGATIVE (NEGATIVE); BARBITURATES URINE NEGATIVE (NEGATIVE); BENZODIAZEPINES URINE NEGATIVE (NEGATIVE); CANNABINOIDS URINE NEGATIVE (NEGATIVE); COCAINE METABOLITE URINE NEGATIVE (NEGATIVE); METHADONE URINE NEGATIVE (NEGATIVE); OPIATES URINE NEGATIVE (NEGATIVE); PHENCYCLIDINE URINE NEGATIVE (NEGATIVE)
[2021-12-19 12:47] LABS: ALBUMIN 3.5 GM/DL (3.2-5.2); ALT/SGPT 60 U/L (12-78); BILIRUBIN,DIRECT 0.2 MG/DL (0.0-0.2); BILIRUBIN,TOTAL 0.4 MG/DL (0.2-1.0); BLOOD UREA NITROGEN 13 MG/DL (7-18); CALCIUM LEVEL 8.7 MG/DL (8.5-10.1); CARBON DIOXIDE LEVEL 26 MEQ/L (21-32); CHLORIDE LEVEL 111 MEQ/L (98-107); CREATININE FOR GFR 0.72 MG/DL (0.55-1.30); ETHYL ALCOHOL (ETHANOL) < 0.003 % (0.000-0.010); GLOMERULAR FILTRATION RATE > 60.0 (>60); GLUCOSE, FASTING 81 MG/DL (70-100); POTASSIUM SERUM 4.3 MEQ/L (3.5-5.1); SALICYLATE LEVEL < 1.7 MG/DL (5.0-30.0); SODIUM LEVEL 140 MEQ/L (136-145); THYROID STIMULATING HORMONE 0.469 uIU/ML (0.358-3.740); TOTAL PROTEIN 6.7 GM/DL (6.4-8.2)
[2021-12-19 12:53] LABS: ACETAMINOPHEN LEVEL 2.4 UG/ML (10.0-30.0)
[2021-12-19 12:59] LABS: HCG, SERUM QUALITATIVE NEGATIVE (NEGATIVE)
[2021-12-19] MEDS ORDERED: ACETAMINOPHEN TAB 650MG DOSE (2X325MG) PO ONE (14:50)
[2021-12-19] MEDS ORDERED: HOME MED LIST COMPLETE! XX SCH (18:35)
[2021-12-20 08:41] VITALS: BP 133/65
== END 2021-12-20 08:44 ==
LOC: M ED 09:36
DX: R45.851 Suicidal ideations (principal); F31.9 Bipolar disorder, unspecified; F33.9 Major depressive disorder, recurrent, unspecified; F41.9 Anxiety disorder, unspecified; F60.3 Borderline personality disorder; Z77.098 Contact with and (suspected) exposure to other hazardous, chiefly nonmedicinal, chemicals; Z79.899 Other long term (current) drug therapy; F12.20 Cannabis dependence, uncomplicated; F17.200 Nicotine dependence, unspecified, uncomplicated

== ENCOUNTER 2021-12-22 15:43 | Emergency (ER) | payer OTHER ==
[~2021-12-22] VITALS: Ht 162.6 cm; Wt 104.5 kg
[2021-12-22 16:04] VITALS: BP 154/90
[2021-12-22 20:35] LABS: HEMATOCRIT 36.9 % (36.0-47.0); HEMOGLOBIN 12.2 g/dl (12.0-15.5); MEAN CORPUSCULAR HEMOGLOBIN 29.2 pg (27.0-33.0); MEAN CORPUSCULAR HGB CONC 33.1 g/dl (32.0-36.5); MEAN CORPUSCULAR VOLUME 88.3 fl (80.0-96.0); PLATELET COUNT, AUTOMATED 255 10^3/uL (150-450); RED BLOOD COUNT 4.18 10^6/uL (4.00-5.40); WHITE BLOOD COUNT 9.3 10^3/uL (4.0-10.0)
[2021-12-22 20:56] LABS: HCG, SERUM QUALITATIVE NEGATIVE (NEGATIVE)
[2021-12-22 21:02] LABS: AMPHETAMINES LEVEL URINE NEGATIVE (NEGATIVE); BARBITURATES URINE NEGATIVE (NEGATIVE); BENZODIAZEPINES URINE NEGATIVE (NEGATIVE); CANNABINOIDS URINE NEGATIVE (NEGATIVE); COCAINE METABOLITE URINE NEGATIVE (NEGATIVE); METHADONE URINE NEGATIVE (NEGATIVE); OPIATES URINE NEGATIVE (NEGATIVE); PHENCYCLIDINE URINE NEGATIVE (NEGATIVE)
[2021-12-22 21:06] LABS: ACETAMINOPHEN LEVEL < 2.0 UG/ML (10.0-30.0); ALBUMIN 3.8 GM/DL (3.2-5.2); ALT/SGPT 49 U/L (12-78); BILIRUBIN,DIRECT 0.1 MG/DL (0.0-0.2); BILIRUBIN,TOTAL 0.2 MG/DL (0.2-1.0); BLOOD UREA NITROGEN 14 MG/DL (7-18); CALCIUM LEVEL 9.6 MG/DL (8.5-10.1); CARBON DIOXIDE LEVEL 24 MEQ/L (21-32); CHLORIDE LEVEL 109 MEQ/L (98-107); ETHYL ALCOHOL (ETHANOL) < 0.003 % (0.000-0.010); GLOMERULAR FILTRATION RATE > 60.0 (>60); GLUCOSE, FASTING 99 MG/DL (70-100); POTASSIUM SERUM 4.2 MEQ/L (3.5-5.1); SALICYLATE LEVEL < 1.7 MG/DL (5.0-30.0); SODIUM LEVEL 141 MEQ/L (136-145); TOTAL PROTEIN 7.4 GM/DL (6.4-8.2)
[2021-12-25] MEDS ORDERED: PRAZ2CAP (14:09)
== END 2021-12-22 22:07 | disposition home or self-care (01) ==
LOC: M ED 15:43
DX: Z04.6 Encounter for general psychiatric examination, requested by authority (principal); Z79.899 Other long term (current) drug therapy; Z88.8 Allergy status to other drugs, medicaments and biological substances

== ENCOUNTER 2021-12-23 12:07 | Emergency (ER) | payer OTHER ==
[~2021-12-23] VITALS: Ht 167.6 cm; Wt 105.0 kg
[2021-12-23 14:11] LABS: HEMATOCRIT 37.8 % (36.0-47.0); HEMOGLOBIN 12.4 g/dl (12.0-15.5); MEAN CORPUSCULAR HGB CONC 32.8 g/dl (32.0-36.5); MEAN CORPUSCULAR VOLUME 88.5 fl (80.0-96.0); PLATELET COUNT, AUTOMATED 277 10^3/uL (150-450); RED BLOOD COUNT 4.27 10^6/uL (4.00-5.40); WHITE BLOOD COUNT 8.1 10^3/uL (4.0-10.0)
[2021-12-23 14:33] LABS: AMPHETAMINES LEVEL URINE NEGATIVE (NEGATIVE); BARBITURATES URINE NEGATIVE (NEGATIVE); BENZODIAZEPINES URINE NEGATIVE (NEGATIVE); CANNABINOIDS URINE NEGATIVE (NEGATIVE); COCAINE METABOLITE URINE NEGATIVE (NEGATIVE); METHADONE URINE NEGATIVE (NEGATIVE); OPIATES URINE NEGATIVE (NEGATIVE); PHENCYCLIDINE URINE NEGATIVE (NEGATIVE)
[2021-12-23 14:45] LABS: ACETAMINOPHEN LEVEL < 2.0 UG/ML (10.0-30.0); ALT/SGPT 54 U/L (12-78); BILIRUBIN,DIRECT < 0.1 MG/DL (0.0-0.2); BILIRUBIN,TOTAL 0.4 MG/DL (0.2-1.0); BLOOD UREA NITROGEN 12 MG/DL (7-18); CALCIUM LEVEL 9.8 MG/DL (8.5-10.1); CARBON DIOXIDE LEVEL 22 MEQ/L (21-32); CHLORIDE LEVEL 109 MEQ/L (98-107); CREATININE FOR GFR 0.74 MG/DL (0.55-1.30); ETHYL ALCOHOL (ETHANOL) < 0.003 % (0.000-0.010); GLOMERULAR FILTRATION RATE > 60.0 (>60); GLUCOSE, FASTING 123 MG/DL (70-100); SALICYLATE LEVEL < 1.7 MG/DL (5.0-30.0); SODIUM LEVEL 140 MEQ/L (136-145); TOTAL PROTEIN 7.8 GM/DL (6.4-8.2)
[2021-12-23 14:46] LABS: RSV AMPLIFICATION NEGATIVE (NEGATIVE)
[2021-12-23 14:53] LABS: HCG, SERUM QUALITATIVE NEGATIVE (NEGATIVE)
[2021-12-24] MEDS ORDERED: HOME MED LIST COMPLETE! XX SCH (06:25)
[2021-12-24 12:23] VITALS: BP 130/69
[2021-12-25] MEDS ORDERED: PRAZ2CAP PO (14:09)
== END 2021-12-24 12:26 | disposition home or self-care (01) ==
LOC: M ED 12:07
DX: F60.3 Borderline personality disorder (principal); F32.A Depression, unspecified; Z88.8 Allergy status to other drugs, medicaments and biological substances; Z79.899 Other long term (current) drug therapy

== ENCOUNTER 2021-12-24 15:59 | Emergency (ER) | payer OTHER ==
[~2021-12-24] VITALS: Ht 167.6 cm; Wt 112.7 kg
[2021-12-24 16:00] VITALS: BP 145/74
[2021-12-24 17:26] LABS: HEMATOCRIT 39.6 % (36.0-47.0); HEMOGLOBIN 13.1 g/dl (12.0-15.5); MEAN CORPUSCULAR HEMOGLOBIN 29.2 pg (27.0-33.0); MEAN CORPUSCULAR HGB CONC 33.1 g/dl (32.0-36.5); MEAN CORPUSCULAR VOLUME 88.4 fl (80.0-96.0); PLATELET COUNT, AUTOMATED 283 10^3/uL (150-450); RED BLOOD COUNT 4.48 10^6/uL (4.00-5.40)
[2021-12-24 17:57] LABS: HCG, SERUM QUALITATIVE NEGATIVE (NEGATIVE)
[2021-12-24] MEDS ORDERED: HOME MED LIST COMPLETE! XX SCH (18:05)
[2021-12-24 18:08] LABS: ACETAMINOPHEN LEVEL < 2.0 UG/ML (10.0-30.0); ALBUMIN 4.3 GM/DL (3.2-5.2); ALT/SGPT 59 U/L (12-78); BILIRUBIN,DIRECT < 0.1 MG/DL (0.0-0.2); BILIRUBIN,TOTAL 0.4 MG/DL (0.2-1.0); BLOOD UREA NITROGEN 14 MG/DL (7-18); CALCIUM LEVEL 9.9 MG/DL (8.5-10.1); CARBON DIOXIDE LEVEL 23 MEQ/L (21-32); CHLORIDE LEVEL 108 MEQ/L (98-107); CREATININE FOR GFR 0.68 MG/DL (0.55-1.30); ETHYL ALCOHOL (ETHANOL) < 0.003 % (0.000-0.010); GLOMERULAR FILTRATION RATE > 60.0 (>60); GLUCOSE, FASTING 103 MG/DL (70-100); POTASSIUM SERUM 4.1 MEQ/L (3.5-5.1); SALICYLATE LEVEL < 1.7 MG/DL (5.0-30.0); SODIUM LEVEL 140 MEQ/L (136-145); THYROID STIMULATING HORMONE 0.948 uIU/ML (0.358-3.740); TOTAL PROTEIN 8.2 GM/DL (6.4-8.2)
[2021-12-24 19:57] LABS: AMPHETAMINES LEVEL URINE NEGATIVE (NEGATIVE); BARBITURATES URINE NEGATIVE (NEGATIVE); BENZODIAZEPINES URINE NEGATIVE (NEGATIVE); CANNABINOIDS URINE NEGATIVE (NEGATIVE); COCAINE METABOLITE URINE NEGATIVE (NEGATIVE); METHADONE URINE NEGATIVE (NEGATIVE); OPIATES URINE NEGATIVE (NEGATIVE); PHENCYCLIDINE URINE NEGATIVE (NEGATIVE)
[2021-12-24] MEDS ORDERED: PRAZOSIN 1 MG CAP PO SCH (21:00)
[2021-12-24 21:15] VITALS: BP 121/73
[2021-12-25] MEDS ORDERED: PRAZ2CAP PO (14:09)
== END 2021-12-24 22:01 | disposition home or self-care (01) ==
LOC: M ED 15:59
DX: Z76.5 Malingerer [conscious simulation] (principal); F43.10 Post-traumatic stress disorder, unspecified; Z88.8 Allergy status to other drugs, medicaments and biological substances; Z79.899 Other long term (current) drug therapy

== ENCOUNTER 2021-12-25 02:07 | Emergency (ER) | payer OTHER ==
[~2021-12-25] VITALS: Ht 167.6 cm; Wt 112.0 kg
[2021-12-25] MEDS ORDERED: HOME MED LIST COMPLETE! XX SCH (02:20)
[2021-12-25] MEDS ORDERED: PRAZ2CAP PO (14:09)
== END 2021-12-25 06:09 | disposition home or self-care (01) ==
LOC: M ED 02:07
DX: F60.3 Borderline personality disorder (principal); Z76.5 Malingerer [conscious simulation]; F32.A Depression, unspecified; Z88.8 Allergy status to other drugs, medicaments and biological substances; Z79.899 Other long term (current) drug therapy

== ENCOUNTER 2021-12-25 09:20 | Emergency (ER) | payer OTHER ==
[~2021-12-25] VITALS: Ht 167.6 cm; Wt 109.1 kg
[2021-12-25 09:21] VITALS: BP 134/94
[2021-12-25] MEDS ORDERED: PRAZ2CAP PO (14:09)
== END 2021-12-25 11:45 | disposition home or self-care (01) ==
LOC: M ED 09:20
DX: F60.3 Borderline personality disorder (principal); Z76.5 Malingerer [conscious simulation]; E66.9 Obesity, unspecified; Z79.899 Other long term (current) drug therapy

== ENCOUNTER 2021-12-25 13:51 | Emergency (ER) | payer OTHER ==
[~2021-12-25] VITALS: Ht 167.6 cm; Wt 109.1 kg
[2021-12-25 14:02] VITALS: BP 129/59
[2021-12-25] MEDS ORDERED: PRAZ2CAP PO (14:09)
[2021-12-25 15:05] LABS: HEMATOCRIT 38.3 % (36.0-47.0); HEMOGLOBIN 12.6 g/dl (12.0-15.5); MEAN CORPUSCULAR HEMOGLOBIN 29.1 pg (27.0-33.0); MEAN CORPUSCULAR HGB CONC 32.9 g/dl (32.0-36.5); MEAN CORPUSCULAR VOLUME 88.5 fl (80.0-96.0); PLATELET COUNT, AUTOMATED 284 10^3/uL (150-450); RED BLOOD COUNT 4.33 10^6/uL (4.00-5.40); WHITE BLOOD COUNT 8.7 10^3/uL (4.0-10.0)
[2021-12-25 15:32] LABS: ACETAMINOPHEN LEVEL < 2.0 UG/ML (10.0-30.0); ALBUMIN 4.3 GM/DL (3.2-5.2); ALT/SGPT 57 U/L (12-78); BILIRUBIN,DIRECT 0.2 MG/DL (0.0-0.2); BILIRUBIN,TOTAL 0.7 MG/DL (0.2-1.0); BLOOD UREA NITROGEN 15 MG/DL (7-18); CARBON DIOXIDE LEVEL 25 MEQ/L (21-32); CHLORIDE LEVEL 106 MEQ/L (98-107); CREATININE FOR GFR 0.74 MG/DL (0.55-1.30); ETHYL ALCOHOL (ETHANOL) < 0.003 % (0.000-0.010); GLOMERULAR FILTRATION RATE > 60.0 (>60); GLUCOSE, FASTING 105 MG/DL (70-100); POTASSIUM SERUM 3.7 MEQ/L (3.5-5.1); SALICYLATE LEVEL < 1.7 MG/DL (5.0-30.0); SODIUM LEVEL 140 MEQ/L (136-145); TOTAL PROTEIN 8.1 GM/DL (6.4-8.2)
[2021-12-25 15:34] LABS: AMPHETAMINES LEVEL URINE NEGATIVE (NEGATIVE); BARBITURATES URINE NEGATIVE (NEGATIVE); BENZODIAZEPINES URINE NEGATIVE (NEGATIVE); CANNABINOIDS URINE NEGATIVE (NEGATIVE); COCAINE METABOLITE URINE NEGATIVE (NEGATIVE); METHADONE URINE NEGATIVE (NEGATIVE); OPIATES URINE NEGATIVE (NEGATIVE); PHENCYCLIDINE URINE NEGATIVE (NEGATIVE)
[2021-12-25] MEDS ORDERED: ACETAMINOPHEN 325 MG TAB PO ONE (16:55)
== END 2021-12-25 19:08 | disposition home or self-care (01) ==
LOC: M ED 13:51
DX: F60.3 Borderline personality disorder (principal); F32.A Depression, unspecified; Z88.8 Allergy status to other drugs, medicaments and biological substances; Z79.899 Other long term (current) drug therapy

== ENCOUNTER 2021-12-26 00:04 | Emergency (ER) | payer OTHER ==
[~2021-12-26] VITALS: Ht 167.6 cm; Wt 109.0 kg
[2021-12-26] MEDS ORDERED: HOME MED LIST COMPLETE! XX SCH (07:55)
[2021-12-26 08:00] LABS: HEMATOCRIT 39.8 % (36.0-47.0); HEMOGLOBIN 13.1 g/dl (12.0-15.5); MEAN CORPUSCULAR HEMOGLOBIN 29.8 pg (27.0-33.0); MEAN CORPUSCULAR HGB CONC 32.9 g/dl (32.0-36.5); MEAN CORPUSCULAR VOLUME 90.5 fl (80.0-96.0); PLATELET COUNT, AUTOMATED 295 10^3/uL (150-450); WHITE BLOOD COUNT 6.5 10^3/uL (4.0-10.0)
[2021-12-26 08:26] LABS: HCG, SERUM QUALITATIVE NEGATIVE (NEGATIVE)
[2021-12-26 08:35] LABS: ACETAMINOPHEN LEVEL < 2.0 UG/ML (10.0-30.0); ALBUMIN 4.1 GM/DL (3.2-5.2); ALT/SGPT 56 U/L (12-78); BILIRUBIN,DIRECT 0.1 MG/DL (0.0-0.2); BILIRUBIN,TOTAL 0.4 MG/DL (0.2-1.0); BLOOD UREA NITROGEN 17 MG/DL (7-18); CALCIUM LEVEL 9.9 MG/DL (8.5-10.1); CARBON DIOXIDE LEVEL 26 MEQ/L (21-32); CHLORIDE LEVEL 107 MEQ/L (98-107); CREATININE FOR GFR 0.76 MG/DL (0.55-1.30); ETHYL ALCOHOL (ETHANOL) < 0.003 % (0.000-0.010); GLOMERULAR FILTRATION RATE > 60.0 (>60); GLUCOSE, FASTING 96 MG/DL (70-100); POTASSIUM SERUM 4.5 MEQ/L (3.5-5.1); SALICYLATE LEVEL < 1.7 MG/DL (5.0-30.0); SODIUM LEVEL 141 MEQ/L (136-145)
[2021-12-26 13:04] LABS: AMPHETAMINES LEVEL URINE NEGATIVE (NEGATIVE); BARBITURATES URINE NEGATIVE (NEGATIVE); BENZODIAZEPINES URINE NEGATIVE (NEGATIVE); CANNABINOIDS URINE NEGATIVE (NEGATIVE); COCAINE METABOLITE URINE NEGATIVE (NEGATIVE); METHADONE URINE NEGATIVE (NEGATIVE); OPIATES URINE NEGATIVE (NEGATIVE); PHENCYCLIDINE URINE NEGATIVE (NEGATIVE)
[2021-12-26 13:05] LABS: RSV AMPLIFICATION NEGATIVE (NEGATIVE)
[2021-12-26] MEDS ORDERED: ACETAMINOPHEN TAB 650MG DOSE (2X325MG) PO ONE (14:20)
[2021-12-26] MEDS ORDERED: LORazepam 2 MG TAB PO STA (17:09)
[2021-12-27 06:06] VITALS: BP 189/84
== END 2021-12-27 13:30 | disposition home or self-care (01) ==
LOC: M ED 00:04
DX: Z76.5 Malingerer [conscious simulation] (principal); F60.3 Borderline personality disorder; Z88.8 Allergy status to other drugs, medicaments and biological substances; Z79.899 Other long term (current) drug therapy

== ENCOUNTER 2021-12-28 13:43 | Emergency (ER) | payer OTHER ==
[~2021-12-28] VITALS: Ht 167.6 cm; Wt 132.4 kg
[2021-12-28 15:29] LABS: HEMATOCRIT 38.6 % (36.0-47.0); HEMOGLOBIN 12.6 g/dl (12.0-15.5); MEAN CORPUSCULAR HEMOGLOBIN 29.4 pg (27.0-33.0); MEAN CORPUSCULAR HGB CONC 32.6 g/dl (32.0-36.5); PLATELET COUNT, AUTOMATED 273 10^3/uL (150-450); RED BLOOD COUNT 4.29 10^6/uL (4.00-5.40); WHITE BLOOD COUNT 9.3 10^3/uL (4.0-10.0)
[2021-12-28 15:49] LABS: AMPHETAMINES LEVEL URINE NEGATIVE (NEGATIVE); BARBITURATES URINE NEGATIVE (NEGATIVE); BENZODIAZEPINES URINE NEGATIVE (NEGATIVE); CANNABINOIDS URINE POSITIVE (NEGATIVE); COCAINE METABOLITE URINE NEGATIVE (NEGATIVE); METHADONE URINE NEGATIVE (NEGATIVE); OPIATES URINE NEGATIVE (NEGATIVE); PHENCYCLIDINE URINE NEGATIVE (NEGATIVE)
[2021-12-28 16:03] LABS: RSV AMPLIFICATION NEGATIVE (NEGATIVE)
[2021-12-28 16:12] LABS: ALBUMIN 3.9 GM/DL (3.2-5.2); ALT/SGPT 57 U/L (12-78); BILIRUBIN,DIRECT 0.3 MG/DL (0.0-0.2); BILIRUBIN,TOTAL 0.4 MG/DL (0.2-1.0); BLOOD UREA NITROGEN 12 MG/DL (7-18); CALCIUM LEVEL 9.6 MG/DL (8.5-10.1); CARBON DIOXIDE LEVEL 22 MEQ/L (21-32); CHLORIDE LEVEL 109 MEQ/L (98-107); CREATININE FOR GFR 0.65 MG/DL (0.55-1.30); ETHYL ALCOHOL (ETHANOL) < 0.003 % (0.000-0.010); GLOMERULAR FILTRATION RATE > 60.0 (>60); GLUCOSE, FASTING 80 MG/DL (70-100); SALICYLATE LEVEL < 1.7 MG/DL (5.0-30.0); SODIUM LEVEL 142 MEQ/L (136-145); TOTAL PROTEIN 7.6 GM/DL (6.4-8.2)
[2021-12-28 16:29] LABS: HCG, SERUM QUALITATIVE NEGATIVE (NEGATIVE)
[2021-12-28] MEDS ORDERED: ONDANSETRON 4MG ORAL DISINTEGRATING TAB PO ONE (16:40)
[2021-12-28] MEDS ORDERED: HOME MED LIST COMPLETE! XX SCH (16:50)
[2021-12-28 18:47] VITALS: BP 136/85
[2021-12-28 20:11] LABS: ACETAMINOPHEN LEVEL < 2.0 UG/ML (0.0-30.0)
== END 2021-12-28 18:50 ==
LOC: M ED 13:43
DX: R45.851 Suicidal ideations (principal); Z88.8 Allergy status to other drugs, medicaments and biological substances

== ENCOUNTER 2022-01-02 15:25 | Emergency (ER) | payer OTHER ==
[~2022-01-02] VITALS: Ht 167.6 cm; Wt 134.1 kg
[2022-01-02 18:12] LABS: HEMATOCRIT 39.5 % (36.0-47.0); MEAN CORPUSCULAR HEMOGLOBIN 29.2 pg (27.0-33.0); MEAN CORPUSCULAR HGB CONC 32.9 g/dl (32.0-36.5); MEAN CORPUSCULAR VOLUME 88.8 fl (80.0-96.0); PLATELET COUNT, AUTOMATED 263 10^3/uL (150-450); RED BLOOD COUNT 4.45 10^6/uL (4.00-5.40); WHITE BLOOD COUNT 10.5 10^3/uL (4.0-10.0)
[2022-01-02 18:37] LABS: HCG, SERUM QUALITATIVE NEGATIVE (NEGATIVE)
[2022-01-02 18:40] LABS: ALBUMIN 4.1 GM/DL (3.2-5.2); ALT/SGPT 59 U/L (12-78); BILIRUBIN,DIRECT 0.2 MG/DL (0.0-0.2); BILIRUBIN,TOTAL 0.4 MG/DL (0.2-1.0); BLOOD UREA NITROGEN 17 MG/DL (7-18); CALCIUM LEVEL 9.6 MG/DL (8.5-10.1); CARBON DIOXIDE LEVEL 23 MEQ/L (21-32); CHLORIDE LEVEL 109 MEQ/L (98-107); CREATININE FOR GFR 0.71 MG/DL (0.55-1.30); ETHYL ALCOHOL (ETHANOL) 0.006 % (0.000-0.010); GLOMERULAR FILTRATION RATE > 60.0 (>60); GLUCOSE, FASTING 93 MG/DL (70-100); POTASSIUM SERUM 4.2 MEQ/L (3.5-5.1); SALICYLATE LEVEL < 1.7 MG/DL (5.0-30.0); SODIUM LEVEL 139 MEQ/L (136-145); TOTAL PROTEIN 7.8 GM/DL (6.4-8.2)
[2022-01-02 18:42] LABS: AMPHETAMINES LEVEL URINE NEGATIVE (NEGATIVE); BARBITURATES URINE NEGATIVE (NEGATIVE); BENZODIAZEPINES URINE NEGATIVE (NEGATIVE); CANNABINOIDS URINE NEGATIVE (NEGATIVE); COCAINE METABOLITE URINE NEGATIVE (NEGATIVE); METHADONE URINE NEGATIVE (NEGATIVE); OPIATES URINE NEGATIVE (NEGATIVE); PHENCYCLIDINE URINE NEGATIVE (NEGATIVE)
[2022-01-02 19:20] VITALS: BP 138/67
[2022-01-02 20:21] LABS: ACETAMINOPHEN LEVEL < 2.0 UG/ML (0.0-30.0)
== END 2022-01-02 19:23 | disposition home or self-care (01) ==
LOC: M ED 15:25
DX: F60.3 Borderline personality disorder (principal); Z88.8 Allergy status to other drugs, medicaments and biological substances; Z79.899 Other long term (current) drug therapy

== ENCOUNTER 2022-01-03 08:09 | Emergency (ER) | payer OTHER ==
[~2022-01-03] VITALS: Ht 167.6 cm; Wt 109.1 kg
[2022-01-03 08:48] LABS: HEMATOCRIT 37.3 % (36.0-47.0); HEMOGLOBIN 12.1 g/dl (12.0-15.5); MEAN CORPUSCULAR HGB CONC 32.4 g/dl (32.0-36.5); MEAN CORPUSCULAR VOLUME 89.4 fl (80.0-96.0); PLATELET COUNT, AUTOMATED 256 10^3/uL (150-450); RED BLOOD COUNT 4.17 10^6/uL (4.00-5.40); WHITE BLOOD COUNT 7.8 10^3/uL (4.0-10.0)
[2022-01-03 09:09] LABS: AMPHETAMINES LEVEL URINE NEGATIVE (NEGATIVE); BARBITURATES URINE NEGATIVE (NEGATIVE); BENZODIAZEPINES URINE NEGATIVE (NEGATIVE); CANNABINOIDS URINE NEGATIVE (NEGATIVE); COCAINE METABOLITE URINE NEGATIVE (NEGATIVE); METHADONE URINE NEGATIVE (NEGATIVE); OPIATES URINE NEGATIVE (NEGATIVE); PHENCYCLIDINE URINE NEGATIVE (NEGATIVE)
[2022-01-03 09:13] LABS: HCG, SERUM QUALITATIVE NEGATIVE (NEGATIVE)
[2022-01-03 09:18] LABS: ALBUMIN 3.8 GM/DL (3.2-5.2); ALT/SGPT 61 U/L (12-78); BILIRUBIN,DIRECT < 0.1 MG/DL (0.0-0.2); BILIRUBIN,TOTAL 0.4 MG/DL (0.2-1.0); BLOOD UREA NITROGEN 18 MG/DL (7-18); CALCIUM LEVEL 9.4 MG/DL (8.5-10.1); CARBON DIOXIDE LEVEL 22 MEQ/L (21-32); CHLORIDE LEVEL 112 MEQ/L (98-107); CREATININE FOR GFR 0.61 MG/DL (0.55-1.30); ETHYL ALCOHOL (ETHANOL) < 0.003 % (0.000-0.010); GLOMERULAR FILTRATION RATE > 60.0 (>60); GLUCOSE, FASTING 93 MG/DL (70-100); POTASSIUM SERUM 4.1 MEQ/L (3.5-5.1); SALICYLATE LEVEL < 1.7 MG/DL (5.0-30.0); SODIUM LEVEL 141 MEQ/L (136-145); TOTAL PROTEIN 7.3 GM/DL (6.4-8.2)
[2022-01-03 09:25] LABS: RSV AMPLIFICATION NEGATIVE (NEGATIVE)
[2022-01-03 11:16] LABS: ACETAMINOPHEN LEVEL < 2.0 UG/ML (0.0-30.0)
[2022-01-03] MEDS ORDERED: IBUPROFEN 800 MG TAB PO ONE (13:00)
[2022-01-03] MEDS ORDERED: NICOTINE 21MG/24HR 1 EA TRANSDERMAL TD ONE (18:25)
[2022-01-03] MEDS ORDERED: HOME MED LIST COMPLETE! XX SCH (18:30)
[2022-01-03] MEDS: PRAZOSIN 1 MG CAP PO SCH (21:32)
[2022-01-04] MEDS ORDERED: ACETAMINOPHEN TAB 650MG DOSE (2X325MG) PO ONE ×2 (10:50→19:30)
[2022-01-04] MEDS ORDERED: NICOTINE 21MG/24HR 1 EA TRANSDERMAL TD ONE (19:00)
[2022-01-04 21:00] VITALS: BP 145/70
[2022-01-04] MEDS: PRAZOSIN 1 MG CAP PO SCH (21:00)
[2022-01-04] MEDS ORDERED: IBUPROFEN 600MG TAB PO ONE (22:20)
[2022-01-05 06:25] VITALS: BP 128/68
== END 2022-01-05 11:38 | disposition home or self-care (01) ==
LOC: M ED 08:09
DX: F60.3 Borderline personality disorder (principal); Z79.899 Other long term (current) drug therapy; Z88.8 Allergy status to other drugs, medicaments and biological substances

== ENCOUNTER 2022-01-05 16:39 | Emergency (ER) | payer OTHER | END 2022-01-05 17:06 | disposition home or self-care (01) | LOC: M ED 16:39 | DX: Z73.4 Inadequate social skills, not elsewhere classified (principal); F60.3 Borderline personality disorder; Z88.8 Allergy status to other drugs, medicaments and biological substances; Z79.899 Other long term (current) drug therapy ==

== ENCOUNTER 2022-01-06 02:01 | Emergency (ER) | payer OTHER ==
[~2022-01-06] VITALS: Ht 167.6 cm; Wt 109.0 kg
[2022-01-06 06:02] LABS: AMPHETAMINES LEVEL URINE NEGATIVE (NEGATIVE); BARBITURATES URINE NEGATIVE (NEGATIVE); BENZODIAZEPINES URINE NEGATIVE (NEGATIVE); CANNABINOIDS URINE NEGATIVE (NEGATIVE); COCAINE METABOLITE URINE NEGATIVE (NEGATIVE); METHADONE URINE NEGATIVE (NEGATIVE); OPIATES URINE NEGATIVE (NEGATIVE); PHENCYCLIDINE URINE NEGATIVE (NEGATIVE)
[2022-01-06 11:35] VITALS: BP 129/65
== END 2022-01-06 11:37 | disposition home or self-care (01) ==
LOC: M ED 02:01
DX: F60.3 Borderline personality disorder (principal); Z76.5 Malingerer [conscious simulation]; Z88.8 Allergy status to other drugs, medicaments and biological substances; Z79.899 Other long term (current) drug therapy

== ENCOUNTER 2022-01-06 14:21 | Emergency (ER) | payer OTHER | END 2022-01-06 14:37 | disposition home or self-care (01) | LOC: M ED 14:21 | DX: Z76.5 Malingerer [conscious simulation] (principal); Z73.4 Inadequate social skills, not elsewhere classified; F60.3 Borderline personality disorder; Z88.8 Allergy status to other drugs, medicaments and biological substances; Z79.899 Other long term (current) drug therapy ==

== ENCOUNTER 2022-01-07 10:17 | Emergency (ER) | payer OTHER ==
[~2022-01-07] VITALS: Ht 167.6 cm; Wt 134.0 kg
[2022-01-07 12:36] VITALS: BP 129/74
== END 2022-01-07 12:47 | disposition home or self-care (01) ==
LOC: M ED 10:55
DX: Z76.5 Malingerer [conscious simulation] (principal); F60.3 Borderline personality disorder; E66.8 Other obesity; Z88.8 Allergy status to other drugs, medicaments and biological substances; Z79.899 Other long term (current) drug therapy

== ENCOUNTER 2022-01-07 15:38 | Emergency (ER) | payer OTHER ==
[2022-01-07 17:40] VITALS: BP 128/74
== END 2022-01-07 17:45 | disposition home or self-care (01) ==
LOC: M ED 15:38
DX: Z76.5 Malingerer [conscious simulation] (principal); F60.3 Borderline personality disorder; F31.9 Bipolar disorder, unspecified; F43.10 Post-traumatic stress disorder, unspecified; F90.9 Attention-deficit hyperactivity disorder, unspecified type; Z88.8 Allergy status to other drugs, medicaments and biological substances; Z79.899 Other long term (current) drug therapy

== ENCOUNTER 2022-01-08 11:05 | Emergency (ER) | payer OTHER ==
[~2022-01-08] VITALS: Ht 167.6 cm; Wt 109.1 kg
[2022-01-08 11:24] VITALS: BP 138/75
== END 2022-01-08 12:49 | disposition home or self-care (01) ==
LOC: M ED 11:05
DX: F60.3 Borderline personality disorder (principal); Z88.8 Allergy status to other drugs, medicaments and biological substances; Z79.899 Other long term (current) drug therapy

== ENCOUNTER 2022-01-08 17:01 | Emergency (ER) | payer OTHER ==
[~2022-01-08] VITALS: Ht 167.6 cm; Wt 109.1 kg
[2022-01-08 18:39] LABS: HEMATOCRIT 34.9 % (36.0-47.0); HEMOGLOBIN 11.2 g/dl (12.0-15.5); MEAN CORPUSCULAR HGB CONC 32.1 g/dl (32.0-36.5); MEAN CORPUSCULAR VOLUME 90.4 fl (80.0-96.0); PLATELET COUNT, AUTOMATED 258 10^3/uL (150-450); RED BLOOD COUNT 3.86 10^6/uL (4.00-5.40); WHITE BLOOD COUNT 9.8 10^3/uL (4.0-10.0)
[2022-01-08 18:54] LABS: HCG, SERUM QUALITATIVE NEGATIVE (NEGATIVE)
[2022-01-08 19:01] LABS: AMPHETAMINES LEVEL URINE NEGATIVE (NEGATIVE); BARBITURATES URINE NEGATIVE (NEGATIVE); BENZODIAZEPINES URINE NEGATIVE (NEGATIVE); CANNABINOIDS URINE NEGATIVE (NEGATIVE); COCAINE METABOLITE URINE NEGATIVE (NEGATIVE); METHADONE URINE NEGATIVE (NEGATIVE); OPIATES URINE NEGATIVE (NEGATIVE); PHENCYCLIDINE URINE NEGATIVE (NEGATIVE)
[2022-01-08 19:09] LABS: ALBUMIN 3.8 GM/DL (3.2-5.2); ALT/SGPT 48 U/L (12-78); BILIRUBIN,DIRECT 0.2 MG/DL (0.0-0.2); BILIRUBIN,TOTAL 0.6 MG/DL (0.2-1.0); BLOOD UREA NITROGEN 16 MG/DL (7-18); CALCIUM LEVEL 9.1 MG/DL (8.5-10.1); CARBON DIOXIDE LEVEL 25 MEQ/L (21-32); CHLORIDE LEVEL 110 MEQ/L (98-107); CREATININE FOR GFR 0.69 MG/DL (0.55-1.30); ETHYL ALCOHOL (ETHANOL) < 0.003 % (0.000-0.010); GLOMERULAR FILTRATION RATE > 60.0 (>60); GLUCOSE, FASTING 85 MG/DL (70-100); POTASSIUM SERUM 4.1 MEQ/L (3.5-5.1); SALICYLATE LEVEL < 1.7 MG/DL (5.0-30.0); SODIUM LEVEL 142 MEQ/L (136-145); TOTAL PROTEIN 7.1 GM/DL (6.4-8.2)
[2022-01-08 19:54] LABS: RSV AMPLIFICATION NEGATIVE (NEGATIVE)
[2022-01-08] MEDS ORDERED: HOME MED LIST COMPLETE! XX SCH (20:00)
[2022-01-08] MEDS ORDERED: ACETAMINOPHEN TAB 650MG DOSE (2X325MG) PO ONE (20:40)
[2022-01-08] MEDS ORDERED: PRAZOSIN 1 MG CAP PO SCH (21:00)
[2022-01-08 22:05] LABS: ACETAMINOPHEN LEVEL < 2.0 UG/ML (0.0-30.0)
[2022-01-09 13:08] VITALS: BP 151/74
== END 2022-01-09 13:10 | disposition home or self-care (01) ==
LOC: M ED 17:01
DX: Z76.5 Malingerer [conscious simulation] (principal); F60.3 Borderline personality disorder; Z88.8 Allergy status to other drugs, medicaments and biological substances; Z79.899 Other long term (current) drug therapy

== ENCOUNTER 2022-01-09 14:08 | Emergency (ER) | payer OTHER ==
[~2022-01-09] VITALS: Ht 167.6 cm; Wt 109.1 kg
[2022-01-09 17:03] VITALS: BP 141/84
== END 2022-01-09 17:15 | disposition home or self-care (01) ==
LOC: M ED 14:08
DX: Z73.89 Other problems related to life management difficulty (principal); F60.3 Borderline personality disorder; Z88.8 Allergy status to other drugs, medicaments and biological substances; Z79.899 Other long term (current) drug therapy

== ENCOUNTER 2022-01-09 17:50 | Emergency (ER) | payer OTHER | END 2022-01-09 22:31 | disposition home or self-care (01) | LOC: M ED 17:50 | DX: Z73.89 Other problems related to life management difficulty (principal); F60.3 Borderline personality disorder; Z88.8 Allergy status to other drugs, medicaments and biological substances; Z79.899 Other long term (current) drug therapy ==

== ENCOUNTER 2022-01-10 02:13 | Emergency (ER) | payer OTHER ==
[~2022-01-10] VITALS: Ht 165.1 cm; Wt 149.1 kg
[2022-01-10] MEDS ORDERED: HOME MED LIST COMPLETE! XX SCH (05:20)
[2022-01-10 14:12] LABS: HEMATOCRIT 37.7 % (36.0-47.0); HEMOGLOBIN 12.4 g/dl (12.0-15.5); MEAN CORPUSCULAR HEMOGLOBIN 29.8 pg (27.0-33.0); MEAN CORPUSCULAR HGB CONC 32.9 g/dl (32.0-36.5); MEAN CORPUSCULAR VOLUME 90.6 fl (80.0-96.0); PLATELET COUNT, AUTOMATED 262 10^3/uL (150-450); RED BLOOD COUNT 4.16 10^6/uL (4.00-5.40)
[2022-01-10 14:23] LABS: AMPHETAMINES LEVEL URINE NEGATIVE (NEGATIVE); BARBITURATES URINE NEGATIVE (NEGATIVE); BENZODIAZEPINES URINE NEGATIVE (NEGATIVE); CANNABINOIDS URINE NEGATIVE (NEGATIVE); COCAINE METABOLITE URINE NEGATIVE (NEGATIVE); METHADONE URINE NEGATIVE (NEGATIVE); OPIATES URINE NEGATIVE (NEGATIVE); PHENCYCLIDINE URINE NEGATIVE (NEGATIVE)
[2022-01-10 14:30] LABS: HCG, SERUM QUALITATIVE NEGATIVE (NEGATIVE)
[2022-01-10 14:47] LABS: RSV AMPLIFICATION NEGATIVE (NEGATIVE)
[2022-01-10 14:48] LABS: ALBUMIN 3.7 GM/DL (3.2-5.2); ALT/SGPT 47 U/L (12-78); BILIRUBIN,DIRECT 0.2 MG/DL (0.0-0.2); BILIRUBIN,TOTAL 0.3 MG/DL (0.2-1.0); BLOOD UREA NITROGEN 15 MG/DL (7-18); CALCIUM LEVEL 9.2 MG/DL (8.5-10.1); CARBON DIOXIDE LEVEL 25 MEQ/L (21-32); CHLORIDE LEVEL 109 MEQ/L (98-107); CREATININE FOR GFR 0.59 MG/DL (0.55-1.30); ETHYL ALCOHOL (ETHANOL) < 0.003 % (0.000-0.010); GLOMERULAR FILTRATION RATE > 60.0 (>60); GLUCOSE, FASTING 91 MG/DL (70-100); POTASSIUM SERUM 4.3 MEQ/L (3.5-5.1); SALICYLATE LEVEL < 1.7 MG/DL (5.0-30.0); SODIUM LEVEL 142 MEQ/L (136-145); THYROID STIMULATING HORMONE 0.716 uIU/ML (0.358-3.740); TOTAL PROTEIN 7.4 GM/DL (6.4-8.2)
[2022-01-10 14:49] LABS: ACETAMINOPHEN LEVEL < 2.0 UG/ML (10.0-30.0)
[2022-01-11 05:52] VITALS: BP 148/77
== END 2022-01-11 17:09 | disposition home or self-care (01) ==
LOC: M ED 02:13
DX: F60.3 Borderline personality disorder (principal); Z76.5 Malingerer [conscious simulation]; Z79.899 Other long term (current) drug therapy; Z88.8 Allergy status to other drugs, medicaments and biological substances

== ENCOUNTER 2022-01-12 02:49 | Emergency (ER) | payer OTHER ==
[~2022-01-12] VITALS: Ht 165.1 cm; Wt 149.1 kg
[2022-01-12 02:57] VITALS: BP 145/70
== END 2022-01-12 06:36 | disposition home or self-care (01) ==
LOC: M ED 02:49
DX: Z76.5 Malingerer [conscious simulation] (principal); F60.3 Borderline personality disorder; Z79.899 Other long term (current) drug therapy; Z88.8 Allergy status to other drugs, medicaments and biological substances

== ENCOUNTER 2022-01-12 11:15 | Emergency (ER) | payer OTHER ==
[~2022-01-12] VITALS: Ht 167.6 cm; Wt 109.0 kg
[2022-01-12 12:47] LABS: HEMATOCRIT 38.1 % (36.0-47.0); HEMOGLOBIN 12.4 g/dl (12.0-15.5); MEAN CORPUSCULAR HGB CONC 32.5 g/dl (32.0-36.5); PLATELET COUNT, AUTOMATED 265 10^3/uL (150-450); RED BLOOD COUNT 4.28 10^6/uL (4.00-5.40); WHITE BLOOD COUNT 8.2 10^3/uL (4.0-10.0)
[2022-01-12 13:17] LABS: AMPHETAMINES LEVEL URINE NEGATIVE (NEGATIVE); BARBITURATES URINE NEGATIVE (NEGATIVE); BENZODIAZEPINES URINE NEGATIVE (NEGATIVE); CANNABINOIDS URINE NEGATIVE (NEGATIVE); COCAINE METABOLITE URINE NEGATIVE (NEGATIVE); METHADONE URINE NEGATIVE (NEGATIVE); OPIATES URINE NEGATIVE (NEGATIVE); PHENCYCLIDINE URINE NEGATIVE (NEGATIVE)
[2022-01-12 13:19] LABS: RSV AMPLIFICATION NEGATIVE (NEGATIVE)
[2022-01-12 13:21] LABS: HCG, SERUM QUALITATIVE NEGATIVE (NEGATIVE)
[2022-01-12 13:38] LABS: ACETAMINOPHEN LEVEL < 2.0 UG/ML (10.0-30.0); ALBUMIN 4.1 GM/DL (3.2-5.2); ALT/SGPT 56 U/L (12-78); BILIRUBIN,DIRECT 0.2 MG/DL (0.0-0.2); BILIRUBIN,TOTAL 0.6 MG/DL (0.2-1.0); BLOOD UREA NITROGEN 13 MG/DL (7-18); CALCIUM LEVEL 9.5 MG/DL (8.5-10.1); CARBON DIOXIDE LEVEL 27 MEQ/L (21-32); CHLORIDE LEVEL 108 MEQ/L (98-107); CREATININE FOR GFR 0.55 MG/DL (0.55-1.30); ETHYL ALCOHOL (ETHANOL) < 0.003 % (0.000-0.010); GLOMERULAR FILTRATION RATE > 60.0 (>60); GLUCOSE, FASTING 88 MG/DL (70-100); POTASSIUM SERUM 4.2 MEQ/L (3.5-5.1); SALICYLATE LEVEL < 1.7 MG/DL (5.0-30.0); SODIUM LEVEL 140 MEQ/L (136-145); TOTAL PROTEIN 7.7 GM/DL (6.4-8.2)
[2022-01-12 18:14] VITALS: BP 134/74
== END 2022-01-12 18:15 | disposition home or self-care (01) ==
LOC: M ED 11:15
DX: F60.3 Borderline personality disorder (principal); F31.9 Bipolar disorder, unspecified; Z88.8 Allergy status to other drugs, medicaments and biological substances; Z79.899 Other long term (current) drug therapy

== ENCOUNTER 2022-01-12 21:13 | Emergency (ER) | payer OTHER ==
[~2022-01-12] VITALS: Ht 167.6 cm; Wt 104.5 kg
[2022-01-12] MEDS ORDERED: diphenhydrAMINE 50MG/ML VIAL (J1200) IM ONE (21:25)
[2022-01-12] MEDS ORDERED: HALOPERIDOL 5MG/ML VIAL (J1630 PER 1) IM ONE (21:25)
[2022-01-12] MEDS ORDERED: LORazepam 2 MG/ML VIAL IM ONE (21:25)
[2022-01-12] MEDS ORDERED: LORazepam 2 MG/ML VIAL As Ordered ONE (21:27)
[2022-01-13] MEDS ORDERED: HOME MED LIST COMPLETE! XX SCH (09:40)
[2022-01-13 14:03] VITALS: BP 135/78
[2022-01-14] MEDS ORDERED: PRAZ2CAP (22:09)
== END 2022-01-13 14:06 | disposition home or self-care (01) ==
LOC: M ED 21:13
DX: F43.20 Adjustment disorder, unspecified (principal); F60.3 Borderline personality disorder; Z79.899 Other long term (current) drug therapy; Z88.8 Allergy status to other drugs, medicaments and biological substances
CPT/HCPCS: 96372; 99284; J1200; J1630; J2060

== ENCOUNTER 2022-01-13 16:46 | Emergency (ER) | payer OTHER ==
[~2022-01-13] VITALS: Ht 162.6 cm; Wt 109.1 kg
[2022-01-13] MEDS ORDERED: LORazepam 2 MG/ML VIAL IM ONE (17:00)
[2022-01-13] MEDS ORDERED: diphenhydrAMINE 50MG/ML VIAL (J1200) IM ONE (17:00)
[2022-01-13] MEDS ORDERED: OLANZapine INTRAMUSCULAR 10MG VIAL IM ONE (17:00)
[2022-01-13] MEDS ORDERED: LORazepam 2 MG/ML VIAL As Ordered ONE (17:01)
[2022-01-13 17:41] LABS: HEMATOCRIT 37.5 % (36.0-47.0); HEMOGLOBIN 12.3 g/dl (12.0-15.5); MEAN CORPUSCULAR HEMOGLOBIN 29.2 pg (27.0-33.0); MEAN CORPUSCULAR HGB CONC 32.8 g/dl (32.0-36.5); MEAN CORPUSCULAR VOLUME 89.1 fl (80.0-96.0); PLATELET COUNT, AUTOMATED 266 10^3/uL (150-450); RED BLOOD COUNT 4.21 10^6/uL (4.00-5.40); WHITE BLOOD COUNT 10.6 10^3/uL (4.0-10.0)
[2022-01-13 18:10] LABS: ACETAMINOPHEN LEVEL < 2.0 UG/ML (10.0-30.0); ALBUMIN 3.9 GM/DL (3.2-5.2); ALT/SGPT 62 U/L (12-78); BILIRUBIN,DIRECT 0.1 MG/DL (0.0-0.2); BILIRUBIN,TOTAL 0.4 MG/DL (0.2-1.0); BLOOD UREA NITROGEN 13 MG/DL (7-18); CALCIUM LEVEL 9.4 MG/DL (8.5-10.1); CARBON DIOXIDE LEVEL 22 MEQ/L (21-32); CHLORIDE LEVEL 109 MEQ/L (98-107); CREATININE FOR GFR 0.64 MG/DL (0.55-1.30); ETHYL ALCOHOL (ETHANOL) < 0.003 % (0.000-0.010); GLOMERULAR FILTRATION RATE > 60.0 (>60); GLUCOSE, FASTING 111 MG/DL (70-100); POTASSIUM SERUM 3.9 MEQ/L (3.5-5.1); SALICYLATE LEVEL < 1.7 MG/DL (5.0-30.0); SODIUM LEVEL 139 MEQ/L (136-145); THYROID STIMULATING HORMONE 0.521 uIU/ML (0.358-3.740); TOTAL PROTEIN 7.2 GM/DL (6.4-8.2)
[2022-01-13 18:14] LABS: AMPHETAMINES LEVEL URINE NEGATIVE (NEGATIVE); BARBITURATES URINE NEGATIVE (NEGATIVE); BENZODIAZEPINES URINE NEGATIVE (NEGATIVE); CANNABINOIDS URINE NEGATIVE (NEGATIVE); COCAINE METABOLITE URINE NEGATIVE (NEGATIVE); METHADONE URINE NEGATIVE (NEGATIVE); OPIATES URINE NEGATIVE (NEGATIVE); PHENCYCLIDINE URINE NEGATIVE (NEGATIVE)
[2022-01-13 18:16] LABS: RSV AMPLIFICATION NEGATIVE (NEGATIVE)
[2022-01-14] MEDS ORDERED: NEOSPORIN OINT 0.9 GM PKT TOP ONE (17:40)
[2022-01-14] MEDS: PRAZOSIN 1 MG CAP PO SCH (21:00)
[2022-01-14] MEDS ORDERED: PRAZ2CAP (22:09)
[2022-01-14] MEDS ORDERED: MIDAZOLAM 5MG/ML 1ML VIAL (J2250 PER 1MG) IM ONE (22:55)
[2022-01-15] MEDS ORDERED: ACETAMINOPHEN TAB 650MG DOSE (2X325MG) PO ONE ×2 (10:55→20:00)
[2022-01-15] MEDS: PRAZOSIN 1 MG CAP PO SCH (21:00)
[2022-01-16] MEDS ORDERED: LORazepam 2 MG TAB PO STA (18:11)
[2022-01-16] MEDS ORDERED: ACETAMINOPHEN TAB 650MG DOSE (2X325MG) PO ONE (18:15)
[2022-01-16] MEDS ORDERED: NICOTINE 21MG/24HR 1 EA TRANSDERMAL TD ONE (18:15)
[2022-01-16] MEDS ORDERED: GI COCKTAIL 50ML BTL(HYOSCYAMINE/MAALOX/LIDOCAINE VISCOUS)(1:3:1) PO ONE (20:15)
[2022-01-16 21:07] LABS: BLOOD UREA NITROGEN 13 MG/DL (7-18); CALCIUM LEVEL 9.5 MG/DL (8.5-10.1); CARBON DIOXIDE LEVEL 27 MEQ/L (21-32); CHLORIDE LEVEL 104 MEQ/L (98-107); GLOMERULAR FILTRATION RATE > 60.0 (>60); GLUCOSE, FASTING 94 MG/DL (70-100); POTASSIUM SERUM 4.7 MEQ/L (3.5-5.1); SODIUM LEVEL 138 MEQ/L (136-145)
[2022-01-16] MEDS: PRAZOSIN 1 MG CAP PO SCH (21:52)
[2022-01-17] MEDS: CEPACOL LOZENGE PO PRN ×2 (13:25→17:47)
[2022-01-17] MEDS ORDERED: LORazepam 2 MG TAB PO ONE (17:40)
[2022-01-17] MEDS: PRAZOSIN 1 MG CAP PO SCH ×2 (21:03→21:04)
[2022-01-18] MEDS: CEPACOL LOZENGE PO PRN ×4 (12:22→21:14)
[2022-01-18] MEDS ORDERED: NICOTINE 21MG/24HR 1 EA TRANSDERMAL TD ONE (12:45)
[2022-01-18] MEDS ORDERED: LORazepam 2 MG TAB PO ONE (17:30)
[2022-01-18] MEDS: PRAZOSIN 1 MG CAP PO SCH (21:14)
[2022-01-19] MEDS: CEPACOL LOZENGE PO PRN (17:11)
[2022-01-19] MEDS: PRAZOSIN 1 MG CAP PO SCH ×2 (21:01→22:56)
[2022-01-20] MEDS ORDERED: ACETAMINOPHEN 325 MG TAB PO ONE (11:45)
[2022-01-20] MEDS: PRAZOSIN 1 MG CAP PO SCH ×2 (15:13→22:56)
[2022-01-20] MEDS: CEPACOL LOZENGE PO PRN ×2 (20:01→22:55)
[2022-01-21] MEDS: CEPACOL LOZENGE PO PRN ×5 (02:57→23:44)
[2022-01-21 10:21] LABS: RSV AMPLIFICATION NEGATIVE (NEGATIVE)
[2022-01-21 10:39] LABS: HCG, SERUM QUALITATIVE NEGATIVE (NEGATIVE)
[2022-01-21] MEDS ORDERED: ACETAMINOPHEN 325 MG TAB PO ONE (16:50)
[2022-01-21] MEDS: PRAZOSIN 1 MG CAP PO SCH (20:28)
[2022-01-22] MEDS ORDERED: ACETAMINOPHEN 325 MG TAB PO ONE ×2 (15:05→20:45)
[2022-01-22] MEDS: CEPACOL LOZENGE PO PRN ×2 (15:39→18:17)
[2022-01-22] MEDS ORDERED: OLANZapine ORAL DISINTEGRATING TAB 5MG PO ONE (20:45)
[2022-01-22 20:52] VITALS: BP 158/86
[2022-01-22] MEDS: PRAZOSIN 1 MG CAP PO SCH (20:52)
[2022-01-23 11:57] VITALS: BP 134/75
[2022-01-23] MEDS: CEPACOL LOZENGE PO PRN (12:14)
== END 2022-01-23 16:20 | disposition home or self-care (01) ==
LOC: M ED 16:46
DX: Z76.5 Malingerer [conscious simulation] (principal); F60.3 Borderline personality disorder; F31.9 Bipolar disorder, unspecified; F43.10 Post-traumatic stress disorder, unspecified; F90.9 Attention-deficit hyperactivity disorder, unspecified type; Z88.8 Allergy status to other drugs, medicaments and biological substances; Z79.899 Other long term (current) drug therapy; F17.200 Nicotine dependence, unspecified, uncomplicated
CPT/HCPCS: 36415; 80048; 80076; 80143; 80307; 82077; 84443; 85027; 85379; 87631; 93005; 96372; 99285; J1200; J2060; J2250

== ENCOUNTER 2022-01-27 02:15 | Emergency (ER) | payer OTHER ==
[~2022-01-27] VITALS: Ht 167.6 cm; Wt 109.1 kg
[~2022-01-27 02:15] MED LIST changes: -CHLO25TA38 PO; +CHLO25TA88 PO; +PRAZ2CAP
[2022-01-27 03:20] LABS: HEMATOCRIT 37.4 % (36.0-47.0); HEMOGLOBIN 12.3 g/dl (12.0-15.5); MEAN CORPUSCULAR HEMOGLOBIN 29.1 pg (27.0-33.0); MEAN CORPUSCULAR HGB CONC 32.9 g/dl (32.0-36.5); MEAN CORPUSCULAR VOLUME 88.6 fl (80.0-96.0); PLATELET COUNT, AUTOMATED 250 10^3/uL (150-450); RED BLOOD COUNT 4.22 10^6/uL (4.00-5.40); WHITE BLOOD COUNT 8.7 10^3/uL (4.0-10.0)
[2022-01-27 03:44] LABS: ACETAMINOPHEN LEVEL < 2.0 UG/ML (10.0-30.0); ALBUMIN 3.9 GM/DL (3.2-5.2); ALT/SGPT 47 U/L (12-78); BILIRUBIN,DIRECT < 0.1 MG/DL (0.0-0.2); BILIRUBIN,TOTAL 0.4 MG/DL (0.2-1.0); BLOOD UREA NITROGEN 17 MG/DL (7-18); CALCIUM LEVEL 9.3 MG/DL (8.5-10.1); CARBON DIOXIDE LEVEL 24 MEQ/L (21-32); CHLORIDE LEVEL 110 MEQ/L (98-107); CREATININE FOR GFR 0.61 MG/DL (0.55-1.30); ETHYL ALCOHOL (ETHANOL) < 0.003 % (0.000-0.010); GLOMERULAR FILTRATION RATE > 60.0 (>60); GLUCOSE, FASTING 97 MG/DL (70-100); POTASSIUM SERUM 3.9 MEQ/L (3.5-5.1); SALICYLATE LEVEL < 1.7 MG/DL (5.0-30.0); SODIUM LEVEL 141 MEQ/L (136-145); TOTAL PROTEIN 7.6 GM/DL (6.4-8.2)
[2022-01-27 03:47] LABS: RSV AMPLIFICATION NEGATIVE (NEGATIVE)
[2022-01-27 03:49] LABS: HCG, SERUM QUALITATIVE NEGATIVE (NEGATIVE)
[2022-01-27 06:55] LABS: AMPHETAMINES LEVEL URINE NEGATIVE (NEGATIVE); BARBITURATES URINE NEGATIVE (NEGATIVE); BENZODIAZEPINES URINE POSITIVE (NEGATIVE); CANNABINOIDS URINE NEGATIVE (NEGATIVE); COCAINE METABOLITE URINE NEGATIVE (NEGATIVE); METHADONE URINE NEGATIVE (NEGATIVE); OPIATES URINE NEGATIVE (NEGATIVE); PHENCYCLIDINE URINE NEGATIVE (NEGATIVE)
[2022-01-27 16:51] VITALS: BP 155/90
== END 2022-01-27 16:54 | disposition home or self-care (01) ==
LOC: M ED 02:15
DX: F60.3 Borderline personality disorder (principal); F31.9 Bipolar disorder, unspecified; F43.10 Post-traumatic stress disorder, unspecified; F90.9 Attention-deficit hyperactivity disorder, unspecified type; Z79.899 Other long term (current) drug therapy; Z88.8 Allergy status to other drugs, medicaments and biological substances; F17.200 Nicotine dependence, unspecified, uncomplicated

== ENCOUNTER 2022-01-28 14:24 | Emergency (ER) | payer OTHER ==
[~2022-01-28] VITALS: Ht 167.6 cm; Wt 132.8 kg
[~2022-01-28 14:24] MED LIST changes: +CHLO25TA38 PO; -CHLO25TA88 PO
[2022-01-28 15:43] LABS: HEMATOCRIT 38.2 % (36.0-47.0); HEMOGLOBIN 12.3 g/dl (12.0-15.5); MEAN CORPUSCULAR HGB CONC 32.2 g/dl (32.0-36.5); MEAN CORPUSCULAR VOLUME 90.1 fl (80.0-96.0); PLATELET COUNT, AUTOMATED 256 10^3/uL (150-450); RED BLOOD COUNT 4.24 10^6/uL (4.00-5.40); WHITE BLOOD COUNT 8.9 10^3/uL (4.0-10.0)
[2022-01-28 16:04] LABS: AMPHETAMINES LEVEL URINE NEGATIVE (NEGATIVE); BARBITURATES URINE NEGATIVE (NEGATIVE); BENZODIAZEPINES URINE NEGATIVE (NEGATIVE); CANNABINOIDS URINE NEGATIVE (NEGATIVE); COCAINE METABOLITE URINE NEGATIVE (NEGATIVE); METHADONE URINE NEGATIVE (NEGATIVE); OPIATES URINE NEGATIVE (NEGATIVE); PHENCYCLIDINE URINE NEGATIVE (NEGATIVE)
[2022-01-28 16:15] LABS: ACETAMINOPHEN LEVEL < 2.0 UG/ML (10.0-30.0); ALT/SGPT 56 U/L (12-78); BILIRUBIN,DIRECT 0.1 MG/DL (0.0-0.2); BILIRUBIN,TOTAL 0.4 MG/DL (0.2-1.0); BLOOD UREA NITROGEN 17 MG/DL (7-18); CALCIUM LEVEL 9.9 MG/DL (8.5-10.1); CARBON DIOXIDE LEVEL 27 MEQ/L (21-32); CHLORIDE LEVEL 108 MEQ/L (98-107); CREATININE FOR GFR 0.65 MG/DL (0.55-1.30); ETHYL ALCOHOL (ETHANOL) < 0.003 % (0.000-0.010); GLOMERULAR FILTRATION RATE > 60.0 (>60); GLUCOSE, FASTING 94 MG/DL (70-100); POTASSIUM SERUM 4.3 MEQ/L (3.5-5.1); SALICYLATE LEVEL < 1.7 MG/DL (5.0-30.0); SODIUM LEVEL 140 MEQ/L (136-145); TOTAL PROTEIN 7.6 GM/DL (6.4-8.2)
[2022-01-28 16:21] LABS: HCG, SERUM QUALITATIVE NEGATIVE (NEGATIVE)
[2022-01-28 17:09] LABS: RSV AMPLIFICATION NEGATIVE (NEGATIVE)
[2022-01-29] MEDS ORDERED: ACETAMINOPHEN 325 MG TAB PO ONE (00:45)
[2022-01-29] MEDS ORDERED: BACITRACIN OINTMENT 30GM TUBE TOP ONE (20:20)
[2022-01-29] MEDS ORDERED: NICOTINE 7 MG/24 HR TRANSDERMAL TD ONE (21:20)
[2022-01-29] MEDS ORDERED: ALPRAZolam 0.5 MG TAB PO ONE (23:10)
[2022-01-30 03:04] VITALS: BP 165/89
== END 2022-01-30 03:16 ==
LOC: M ED 14:24
DX: R45.851 Suicidal ideations (principal); F60.3 Borderline personality disorder; F43.10 Post-traumatic stress disorder, unspecified; Z88.8 Allergy status to other drugs, medicaments and biological substances; Z79.899 Other long term (current) drug therapy; F17.200 Nicotine dependence, unspecified, uncomplicated

== ENCOUNTER 2022-01-31 12:15 | Emergency (ER) | payer OTHER ==
[2022-01-31 17:54] VITALS: BP 128/77
== END 2022-01-31 17:56 | disposition home or self-care (01) ==
LOC: M ED 12:15
DX: Z76.5 Malingerer [conscious simulation] (principal); F60.3 Borderline personality disorder; Z88.8 Allergy status to other drugs, medicaments and biological substances; Z79.899 Other long term (current) drug therapy

== ENCOUNTER 2022-02-01 08:51 | Emergency (ER) | payer OTHER ==
[~2022-02-01] VITALS: Ht 167.6 cm; Wt 109.1 kg
[2022-02-02 10:54] VITALS: BP 134/78
== END 2022-02-02 10:57 | disposition home or self-care (01) ==
LOC: M ED 09:09
DX: Z76.5 Malingerer [conscious simulation] (principal); F60.3 Borderline personality disorder; Z88.8 Allergy status to other drugs, medicaments and biological substances; Z79.899 Other long term (current) drug therapy; F17.200 Nicotine dependence, unspecified, uncomplicated

== ENCOUNTER 2022-02-02 13:13 | Emergency (ER) | payer OTHER ==
[~2022-02-02] VITALS: Ht 167.6 cm; Wt 109.1 kg
[2022-02-02] MEDS ORDERED: ACETAMINOPHEN 325 MG TAB PO ONE (20:15)
[2022-02-02 21:19] VITALS: BP 136/75
== END 2022-02-03 09:52 | disposition home or self-care (01) ==
LOC: M ED 13:13
DX: F60.3 Borderline personality disorder (principal); Z76.5 Malingerer [conscious simulation]; Z88.8 Allergy status to other drugs, medicaments and biological substances; Z79.899 Other long term (current) drug therapy; Z87.891 Personal history of nicotine dependence

== ENCOUNTER 2022-02-05 20:47 | Emergency (ER) | payer OTHER ==
[~2022-02-05] VITALS: Ht 167.6 cm; Wt 109.1 kg
[2022-02-05 20:49] VITALS: BP 128/81
== END 2022-02-05 22:06 | disposition left against medical advice (07) ==
LOC: M ED 20:47
DX: Z53.29 Procedure and treatment not carried out because of patient's decision for other reasons (principal)

== ENCOUNTER 2022-02-06 11:49 | Emergency (ER) | payer OTHER ==
[~2022-02-06] VITALS: Ht 167.6 cm; Wt 109.1 kg
[2022-02-06 11:49] VITALS: BP 135/79
== END 2022-02-06 18:42 | disposition home or self-care (01) ==
LOC: M ED 11:49
DX: Z76.5 Malingerer [conscious simulation] (principal); F60.3 Borderline personality disorder; Z88.8 Allergy status to other drugs, medicaments and biological substances; Z79.899 Other long term (current) drug therapy; Z87.891 Personal history of nicotine dependence

== ENCOUNTER 2024-08-19 22:07 | Inpatient (IN) | payer BC, MEDICAID, OTHER ==
[~2024-08-19] VITALS: Ht 167.6 cm; Wt 112.0 kg
[~2024-08-19 22:07] MED LIST changes: -ARIP10TA32; +ARIP10TA63; -BENZ-52 PO; +BENZ0.5T2 PO; -BENZ0.5T23 PO; +BENZ1TAB5 PO; +CALC0.0017; -CALC0.009; -CHLO25TA38 PO; +CHLO25TA88 PO; +LORA-1041 PO; -LORA-674 PO; +LORA1TAB23 PO; -LORA1TAB4 PO; -MIRT-60 PO; +MIRT-89 PO; +NAPR-1405 PO; -NAPR500T6 PO; +ONDA-282 PO; -ONDA4TAB6 PO
[2024-08-20] MEDS ORDERED: MOM 30ML SUSPENSION UDC PO PRN (02:40)
[2024-08-20] MEDS ORDERED: traZODone 50 MG TAB PO PRN (02:40)
[2024-08-20] MEDS ORDERED: LORazepam 1 MG TAB PO PRN (02:40)
[2024-08-20] MEDS: ACETAMINOPHEN 325 MG TAB PO PRN (03:14)
[2024-08-20] MEDS: OLANZapine 5 MG TAB PO PRN (03:14)
[2024-08-20 03:34] VITALS: BP 136/94; TEMP 97.8; O2SAT 100
[2024-08-20 07:12] VITALS: BP 137/82; TEMP 97.6; O2SAT 99
[2024-08-20] MEDS: IBUPROFEN 400MG TAB PO PRN (08:28)
[2024-08-20] MEDS: NICOTINE 14 MG/24 HR TRANSDERMAL TD SCH (08:29)
[2024-08-20] MEDS ORDERED: HOME MED LIST COMPLETE! XX SCH (10:40)
[2024-08-20] MEDS: MAALOX 30 ML SUSP *UDC PO PRN (12:08)
[2024-08-20 15:07] VITALS: BP 138/62; TEMP 97.6; O2SAT 98
[2024-08-20] MEDS: NICOTINE POLACRILEX 2 MG GUM PO PRN (15:27)
[2024-08-20] MEDS: DULoxetine 20MG CAP (CYMBALTA) PO SCH (15:51)
[2024-08-20] MEDS: LURASIDONE 20 MG TAB (LATUDA) PO SCH (20:03)
[2024-08-20] MEDS: OLANZapine 10 MG TAB PO PRN (23:03)
[2024-08-21] MEDS: diphenhydrAMINE 25MG CAP PO PRN (00:29)
[2024-08-21 06:54] VITALS: BP 120/84; TEMP 97.1; O2SAT 97
[2024-08-21] MEDS ORDERED: TRAZ-252 PO (10:15)
[2024-08-21] MEDS ORDERED: DULO1CAP4 PO (10:15)
[2024-08-21] MEDS ORDERED: LATU20TA PO (10:15)
== END 2024-08-21 13:51 | disposition home or self-care (01) | DRG 753 ==
LOC: M ED 22:07 → M ED INP 08-20 01:38 → M PSY 08-20 03:18
PROVIDERS: ADMIT Psychiatry & Neurology Neurology; ATTEND Psychiatry & Neurology Neurology
DX: F31.81 Bipolar II disorder (principal); R45.851 Suicidal ideations; Z88.8 Allergy status to other drugs, medicaments and biological substances; Z91.51 Personal history of suicidal behavior; F43.10 Post-traumatic stress disorder, unspecified; E66.9 Obesity, unspecified; Z88.0 Allergy status to penicillin; Z59.00 Homelessness unspecified; F17.210 Nicotine dependence, cigarettes, uncomplicated; F60.3 Borderline personality disorder; F41.9 Anxiety disorder, unspecified; Z68.39 Body mass index [BMI] 39.0-39.9, adult

== ENCOUNTER 2024-08-23 16:13 | Emergency (ER) | payer MEDICAID ==
[~2024-08-23] VITALS: Ht 167.6 cm; Wt 109.1 kg
[~2024-08-23 16:13] MED LIST changes: +DULO1CAP4 PO; +LATU20TA PO
[2024-08-23] MEDS: IBUPROFEN 600MG TAB PO ONE (17:38)
[2024-08-23] MEDS ORDERED: DULO20CA27 PO (19:39)
[2024-08-23] MEDS ORDERED: LATU20TA PO (19:39)
[2024-08-23] MEDS ORDERED: HOME MED LIST COMPLETE! XX SCH (20:55)
[2024-08-23 21:21] VITALS: BP 143/77; TEMP 97; O2SAT 96
== END 2024-08-23 21:22 | disposition home or self-care (01) ==
LOC: M ED 16:13
DX: F32.A Depression, unspecified (principal); F31.9 Bipolar disorder, unspecified; F17.290 Nicotine dependence, other tobacco product, uncomplicated; Z88.0 Allergy status to penicillin; Z79.899 Other long term (current) drug therapy

== ENCOUNTER 2024-08-25 13:02 | Emergency (ER) | payer MEDICAID ==
[~2024-08-25] VITALS: Ht 167.6 cm; Wt 137.3 kg
[~2024-08-25 13:02] MED LIST changes: +DULO20CA27 PO
[2024-08-25 13:04] VITALS: BP 133/74; TEMP 97.2; O2SAT 99
[2024-08-25 13:45] LABS: HEMATOCRIT 38.1 % (36.0-47.0); HEMOGLOBIN 12.5 g/dl (12.0-15.5); MEAN CORPUSCULAR HEMOGLOBIN 30.3 pg (27.0-33.0); MEAN CORPUSCULAR HGB CONC 32.8 g/dl (32.0-36.5); MEAN CORPUSCULAR VOLUME 92.5 fl (80.0-96.0); PLATELET COUNT, AUTOMATED 211 10^3/uL (150-450); RED BLOOD COUNT 4.12 10^6/uL (4.00-5.40); WHITE BLOOD COUNT 8.3 10^3/uL (4.0-10.0)
[2024-08-25 14:07] LABS: ETHYL ALCOHOL (ETHANOL) 0.004 % (0.000-0.010)
[2024-08-25 14:09] LABS: ALBUMIN 3.6 G/DL (3.2-5.2); ALKALINE PHOSPHATASE 127 U/L (35-104); ALT/SGPT 38 U/L (7.0-40); AST/SGOT 17 U/L (<34); BILIRUBIN,DIRECT 0.2 MG/DL (<0.4); BILIRUBIN,TOTAL 0.4 MG/DL (0.3-1.2); BLOOD UREA NITROGEN 16 MG/DL (9-23); CALCIUM LEVEL 9.2 MG/DL (8.5-10.1); CARBON DIOXIDE LEVEL 25 MMOL/L (20-31); CHLORIDE LEVEL 105 MMOL/L (98-107); CREATININE FOR GFR 0.63 MG/DL (0.55-1.30); GLOMERULAR FILTRATION RATE > 60.0 (>60); GLUCOSE, FASTING 87 MG/DL (60-100); POTASSIUM SERUM 3.9 MMOL/L (3.5-5.1); SALICYLATE LEVEL < 3.0 MG/DL (<30); SODIUM LEVEL 143 MMOL/L (136-145)
[2024-08-25 14:11] LABS: THYROID STIMULATING HORMONE 1.137 uIU/ML (0.55-4.78)
[2024-08-25 14:17] LABS: AMPHETAMINES LEVEL URINE NEGATIVE (NEGATIVE); BARBITURATES URINE NEGATIVE (NEGATIVE); BENZODIAZEPINES URINE NEGATIVE (NEGATIVE); CANNABINOIDS URINE NEGATIVE (NEGATIVE); COCAINE METABOLITE URINE NEGATIVE (NEGATIVE); METHADONE URINE NEGATIVE (NEGATIVE); OPIATES URINE NEGATIVE (NEGATIVE); PHENCYCLIDINE URINE NEGATIVE (NEGATIVE)
[2024-08-25 14:40] LABS: HCG, SERUM QUALITATIVE NEGATIVE (NEGATIVE)
== END 2024-08-25 15:47 | disposition home or self-care (01) ==
LOC: M ED 13:02
DX: Z04.6 Encounter for general psychiatric examination, requested by authority (principal); F31.9 Bipolar disorder, unspecified; F43.10 Post-traumatic stress disorder, unspecified; Z88.0 Allergy status to penicillin; Z79.899 Other long term (current) drug therapy

== ENCOUNTER 2024-08-29 14:23 | Emergency (ER) | payer MEDICAID ==
[~2024-08-29] VITALS: Ht 167.6 cm; Wt 124.1 kg
[2024-08-29 14:30] VITALS: BP 129/64; TEMP 97.1; O2SAT 97
== END 2024-08-29 18:23 | disposition home or self-care (01) ==
LOC: M ED 14:23
DX: F31.9 Bipolar disorder, unspecified (principal); F32.A Depression, unspecified; F43.10 Post-traumatic stress disorder, unspecified; Z88.0 Allergy status to penicillin; Z79.899 Other long term (current) drug therapy

== ENCOUNTER 2024-09-02 20:35 | Emergency (ER) | payer MEDICAID ==
[~2024-09-02] VITALS: Ht 167.6 cm; Wt 127.3 kg
[~2024-09-02 20:35] MED LIST changes: +LAMO25TA4 PO
[2024-09-02 21:09] LABS: HEMATOCRIT 38.2 % (36.0-47.0); HEMOGLOBIN 12.7 g/dl (12.0-15.5); MEAN CORPUSCULAR HEMOGLOBIN 29.7 pg (27.0-33.0); MEAN CORPUSCULAR HGB CONC 33.2 g/dl (32.0-36.5); MEAN CORPUSCULAR VOLUME 89.5 fl (80.0-96.0); PLATELET COUNT, AUTOMATED 260 10^3/uL (150-450); RED BLOOD COUNT 4.27 10^6/uL (4.00-5.40); WHITE BLOOD COUNT 10.3 10^3/uL (4.0-10.0)
[2024-09-02 21:20] LABS: AMPHETAMINES LEVEL URINE NEGATIVE (NEGATIVE); BARBITURATES URINE NEGATIVE (NEGATIVE); BENZODIAZEPINES URINE NEGATIVE (NEGATIVE); CANNABINOIDS URINE NEGATIVE (NEGATIVE); COCAINE METABOLITE URINE NEGATIVE (NEGATIVE); METHADONE URINE NEGATIVE (NEGATIVE); OPIATES URINE NEGATIVE (NEGATIVE); PHENCYCLIDINE URINE NEGATIVE (NEGATIVE)
[2024-09-02 21:34] LABS: ETHYL ALCOHOL (ETHANOL) < 0.003 % (0.000-0.010)
[2024-09-02 21:36] LABS: SALICYLATE LEVEL < 3.0 MG/DL (<30)
[2024-09-02 21:37] LABS: ALBUMIN 3.7 G/DL (3.2-5.2); ALKALINE PHOSPHATASE 120 U/L (35-104); ALT/SGPT 33 U/L (7.0-40); AST/SGOT 11 U/L (<34); BILIRUBIN,DIRECT < 0.1 MG/DL (<0.4); BILIRUBIN,TOTAL 0.2 MG/DL (0.3-1.2); BLOOD UREA NITROGEN 16 MG/DL (9-23); CALCIUM LEVEL 9.6 MG/DL (8.5-10.1); CARBON DIOXIDE LEVEL 22 MMOL/L (20-31); CHLORIDE LEVEL 110 MMOL/L (98-107); CREATININE FOR GFR 0.49 MG/DL (0.55-1.30); GLOMERULAR FILTRATION RATE > 60.0 (>60); GLUCOSE, FASTING 94 MG/DL (60-100); POTASSIUM SERUM 4.1 MMOL/L (3.5-5.1); SODIUM LEVEL 144 MMOL/L (136-145)
[2024-09-02 21:39] LABS: THYROID STIMULATING HORMONE 1.421 uIU/ML (0.55-4.78)
[2024-09-02 21:43] LABS: HCG, SERUM QUALITATIVE NEGATIVE (NEGATIVE)
[2024-09-03] MEDS ORDERED: GUAN1TA PO (00:08)
[2024-09-03] MEDS ORDERED: HOME MED LIST COMPLETE! XX SCH (00:10)
[2024-09-03] MEDS: ONDANSETRON 4MG ORAL DISINTEGRATING TAB PO PRN (07:48)
[2024-09-03] MEDS: ACETAMINOPHEN 325 MG TAB PO ONE (13:45)
[2024-09-03 15:40] VITALS: BP 144/77; TEMP 97.1; O2SAT 100
== END 2024-09-03 15:43 | disposition home or self-care (01) ==
LOC: M ED 20:35
DX: F60.3 Borderline personality disorder (principal); F43.10 Post-traumatic stress disorder, unspecified; Z88.0 Allergy status to penicillin; Z79.899 Other long term (current) drug therapy

== ENCOUNTER 2024-09-04 12:02 | Emergency (ER) | payer MEDICAID ==
[~2024-09-04] VITALS: Ht 167.6 cm; Wt 127.2 kg
[~2024-09-04 12:02] MED LIST changes: +GUAN1TA PO
[2024-09-04 16:35] VITALS: BP 139/70; TEMP 97.5; O2SAT 100
== END 2024-09-04 16:36 | disposition home or self-care (01) ==
LOC: EDBD 12:02 → M ED 12:02
DX: R07.9 Chest pain, unspecified (principal); F17.290 Nicotine dependence, other tobacco product, uncomplicated; Z88.0 Allergy status to penicillin; Z79.899 Other long term (current) drug therapy; Z53.9 Procedure and treatment not carried out, unspecified reason

== ENCOUNTER 2024-09-05 20:46 | Emergency (ER) | payer MEDICAID ==
[~2024-09-05] VITALS: Ht 167.6 cm; Wt 127.3 kg
[2024-09-05 21:30] LABS: VENOUS BASE EXCESS -4.3 (-2.0-2.0); VENOUS HCO3 21.6 MMOL/L (23.0-27.0); VENOUS O2 SATURATION 71.9 % (60.0-80.0); VENOUS PARTIAL PRESSURE CO2 42.3 mmHg (38.0-50.0); VENOUS PARTIAL PRESSURE O2 39.9 mmHg (30.0-50.0); VENOUS PH 7.325 UNITS (7.330-7.430); VENOUS STANDARD HCO3 20.4 MMOL/L; VENOUS TOTAL CO2 22.9 MMOL/L (24.0-28.0)
[2024-09-05 21:37] LABS: BASO % 0.3 % (0.0-1.0); EOS # 0.1 10^3/uL (0.0-0.5); EOS % 0.5 % (0.0-3.0); HEMATOCRIT 37.1 % (36.0-47.0); HEMOGLOBIN 12.3 g/dl (12.0-15.5); LYMPH # 2.4 10^3/uL (1.5-5.0); LYMPH % 24.5 % (24.0-44.0); MEAN CORPUSCULAR HEMOGLOBIN 30.3 pg (27.0-33.0); MEAN CORPUSCULAR HGB CONC 33.2 g/dl (32.0-36.5); MEAN CORPUSCULAR VOLUME 91.4 fl (80.0-96.0); MONO # 0.7 10^3/uL (0.0-0.8); NEUTROPHILS # 6.6 10^3/uL (1.5-8.5); NEUTROPHILS % 67.2 % (36.0-66.0); PLATELET COUNT, AUTOMATED 266 10^3/uL (150-450); RED BLOOD COUNT 4.06 10^6/uL (4.00-5.40); WHITE BLOOD COUNT 9.9 10^3/uL (4.0-10.0)
[2024-09-05 22:03] LABS: ETHYL ALCOHOL (ETHANOL) < 0.003 % (0.000-0.010)
[2024-09-05 22:05] LABS: ALBUMIN 3.5 G/DL (3.2-5.2); ALKALINE PHOSPHATASE 114 U/L (35-104); ALT/SGPT 32 U/L (7.0-40); AST/SGOT 30 U/L (<34); BILIRUBIN,DIRECT < 0.1 MG/DL (<0.4); BILIRUBIN,TOTAL 0.3 MG/DL (0.3-1.2); BLOOD UREA NITROGEN 18 MG/DL (9-23); CALCIUM LEVEL 8.6 MG/DL (8.5-10.1); CARBON DIOXIDE LEVEL 24 MMOL/L (20-31); CHLORIDE LEVEL 107 MMOL/L (98-107); GLOMERULAR FILTRATION RATE > 60.0 (>60); GLUCOSE, FASTING 89 MG/DL (60-100); POTASSIUM SERUM 4.3 MMOL/L (3.5-5.1); SALICYLATE LEVEL < 3.0 MG/DL (<30); SODIUM LEVEL 141 MMOL/L (136-145); TOTAL PROTEIN 6.7 G/DL (5.7-8.2)
[2024-09-05 22:06] LABS: THYROID STIMULATING HORMONE 0.892 uIU/ML (0.55-4.78)
[2024-09-05 22:07] LABS: CPK CREATINE PHOSPHOKINASE 300 U/L (34-145)
[2024-09-05 22:13] LABS: HCG, SERUM QUALITATIVE NEGATIVE (NEGATIVE)
[2024-09-05 22:13] LABS: AMPHETAMINES LEVEL URINE NEGATIVE (NEGATIVE); BARBITURATES URINE NEGATIVE (NEGATIVE); BENZODIAZEPINES URINE NEGATIVE (NEGATIVE); CANNABINOIDS URINE NEGATIVE (NEGATIVE); COCAINE METABOLITE URINE NEGATIVE (NEGATIVE); METHADONE URINE NEGATIVE (NEGATIVE); OPIATES URINE NEGATIVE (NEGATIVE); PHENCYCLIDINE URINE NEGATIVE (NEGATIVE)
[2024-09-05] MEDS ORDERED: ISOVUE-370 76% 100ML VIAL As Ordered ONE (22:45)
[2024-09-05] MEDS ORDERED: HOME MED LIST COMPLETE! XX SCH (22:45)
[2024-09-05] MEDS: ONDANSETRON 4MG 2ML VIAL IV ONE (23:26)
[2024-09-06 08:28] VITALS: BP 125/75; TEMP 96.8; O2SAT 100
== END 2024-09-06 09:11 | disposition home or self-care (01) ==
LOC: M ED 20:46
DX: Z76.5 Malingerer [conscious simulation] (principal); F31.9 Bipolar disorder, unspecified; F60.3 Borderline personality disorder; F43.10 Post-traumatic stress disorder, unspecified; F90.9 Attention-deficit hyperactivity disorder, unspecified type; F17.200 Nicotine dependence, unspecified, uncomplicated; Z88.0 Allergy status to penicillin; Z79.899 Other long term (current) drug therapy
CPT/HCPCS: 74177; 80048; 80076; 80143; 80307; 82077; 82550; 82803; 84443; 84703; 85025; 93005; 93041; 94760; 96374; 99285; J2405; Q9967

== ENCOUNTER 2024-09-12 00:49 | Emergency (ER) | payer MEDICAID ==
[~2024-09-12] VITALS: Ht 167.6 cm; Wt 127.2 kg
[2024-09-12 01:14] VITALS: TEMP 97.5
[2024-09-12 01:56] LABS: AMPHETAMINES LEVEL URINE NEGATIVE (NEGATIVE); BARBITURATES URINE NEGATIVE (NEGATIVE); BENZODIAZEPINES URINE NEGATIVE (NEGATIVE); CANNABINOIDS URINE NEGATIVE (NEGATIVE); COCAINE METABOLITE URINE NEGATIVE (NEGATIVE); METHADONE URINE NEGATIVE (NEGATIVE); OPIATES URINE NEGATIVE (NEGATIVE); PHENCYCLIDINE URINE NEGATIVE (NEGATIVE)
[2024-09-12 02:02] LABS: HEMATOCRIT 37.4 % (36.0-47.0); HEMOGLOBIN 12.4 g/dl (12.0-15.5); MEAN CORPUSCULAR HGB CONC 33.2 g/dl (32.0-36.5); MEAN CORPUSCULAR VOLUME 90.3 fl (80.0-96.0); PLATELET COUNT, AUTOMATED 261 10^3/uL (150-450); RED BLOOD COUNT 4.14 10^6/uL (4.00-5.40); WHITE BLOOD COUNT 9.6 10^3/uL (4.0-10.0)
[2024-09-12 02:21] LABS: ETHYL ALCOHOL (ETHANOL) < 0.003 % (0.000-0.010)
[2024-09-12 02:23] LABS: ALBUMIN 3.6 G/DL (3.2-5.2); ALKALINE PHOSPHATASE 111 U/L (35-104); ALT/SGPT 27 U/L (7.0-40); AST/SGOT 13 U/L (<34); BILIRUBIN,DIRECT 0.2 MG/DL (<0.4); BILIRUBIN,TOTAL 0.4 MG/DL (0.3-1.2); BLOOD UREA NITROGEN 21 MG/DL (9-23); CARBON DIOXIDE LEVEL 23 MMOL/L (20-31); CHLORIDE LEVEL 108 MMOL/L (98-107); CREATININE FOR GFR 0.54 MG/DL (0.55-1.30); GLOMERULAR FILTRATION RATE > 60.0 (>60); GLUCOSE, FASTING 115 MG/DL (60-100); HCG, SERUM QUALITATIVE NEGATIVE (NEGATIVE); POTASSIUM SERUM 3.9 MMOL/L (3.5-5.1); SALICYLATE LEVEL < 3.0 MG/DL (<30); SODIUM LEVEL 140 MMOL/L (136-145); TOTAL PROTEIN 6.7 G/DL (5.7-8.2)
[2024-09-12 02:25] LABS: THYROID STIMULATING HORMONE 2.064 uIU/ML (0.55-4.78)
[2024-09-12 03:13] VITALS: BP 118/67; O2SAT 98
[2024-09-12 03:20] LABS: CK-MB VALUE MASS 1.2 NG/ML (<3.6)
[2024-09-12 03:21] LABS: CPK CREATINE PHOSPHOKINASE 254 U/L (34-145); MB/CK RELATIVE INDEX 0.47 (< OR =4)
== END 2024-09-12 04:51 | disposition home or self-care (01) ==
LOC: M ED 00:49
DX: F43.0 Acute stress reaction (principal); F31.9 Bipolar disorder, unspecified; Z88.0 Allergy status to penicillin; F43.10 Post-traumatic stress disorder, unspecified; F90.9 Attention-deficit hyperactivity disorder, unspecified type

== ENCOUNTER 2024-09-19 00:11 | Emergency (ER) | payer MEDICAID ==
[~2024-09-19] VITALS: Ht 167.6 cm; Wt 134.5 kg
[2024-09-19 03:19] LABS: HEMOGLOBIN 12.4 g/dl (12.0-15.5); MEAN CORPUSCULAR HEMOGLOBIN 29.9 pg (27.0-33.0); MEAN CORPUSCULAR HGB CONC 32.6 g/dl (32.0-36.5); MEAN CORPUSCULAR VOLUME 91.6 fl (80.0-96.0); PLATELET COUNT, AUTOMATED 230 10^3/uL (150-450); RED BLOOD COUNT 4.15 10^6/uL (4.00-5.40); WHITE BLOOD COUNT 8.5 10^3/uL (4.0-10.0)
[2024-09-19 03:47] LABS: AMPHETAMINES LEVEL URINE NEGATIVE (NEGATIVE); BARBITURATES URINE NEGATIVE (NEGATIVE); BENZODIAZEPINES URINE NEGATIVE (NEGATIVE); CANNABINOIDS URINE NEGATIVE (NEGATIVE); COCAINE METABOLITE URINE NEGATIVE (NEGATIVE); METHADONE URINE NEGATIVE (NEGATIVE); OPIATES URINE NEGATIVE (NEGATIVE); PHENCYCLIDINE URINE NEGATIVE (NEGATIVE)
[2024-09-19 03:49] LABS: ETHYL ALCOHOL (ETHANOL) 0.003 % (0.000-0.010)
[2024-09-19 03:51] LABS: ALBUMIN 3.6 G/DL (3.2-5.2); ALKALINE PHOSPHATASE 118 U/L (35-104); ALT/SGPT 46 U/L (7.0-40); AST/SGOT 22 U/L (<34); BILIRUBIN,DIRECT 0.2 MG/DL (<0.4); BILIRUBIN,TOTAL 0.4 MG/DL (0.3-1.2); BLOOD UREA NITROGEN 23 MG/DL (9-23); CALCIUM LEVEL 8.9 MG/DL (8.5-10.1); CARBON DIOXIDE LEVEL 23 MMOL/L (20-31); CHLORIDE LEVEL 108 MMOL/L (98-107); CREATININE FOR GFR 0.59 MG/DL (0.55-1.30); GLOMERULAR FILTRATION RATE > 60.0 (>60); GLUCOSE, FASTING 118 MG/DL (60-100); POTASSIUM SERUM 4.1 MMOL/L (3.5-5.1); SALICYLATE LEVEL < 3.0 MG/DL (<30); SODIUM LEVEL 140 MMOL/L (136-145); TOTAL PROTEIN 6.8 G/DL (5.7-8.2)
[2024-09-19 03:53] LABS: THYROID STIMULATING HORMONE 1.507 uIU/ML (0.55-4.78)
[2024-09-19 04:27] LABS: HCG, SERUM QUALITATIVE NEGATIVE (NEGATIVE)
[2024-09-19 08:46] VITALS: BP 124/77; TEMP 98.2; O2SAT 98
== END 2024-09-19 10:11 | disposition home or self-care (01) ==
LOC: EDBD 00:11 → M ED 00:11
DX: Z76.5 Malingerer [conscious simulation] (principal); U07.1 COVID-19; F41.9 Anxiety disorder, unspecified; F32.A Depression, unspecified; F20.9 Schizophrenia, unspecified; Z88.0 Allergy status to penicillin; Z79.899 Other long term (current) drug therapy

== ENCOUNTER 2024-09-19 17:02 | Emergency (ER) | payer MEDICAID ==
[~2024-09-19] VITALS: Ht 167.6 cm; Wt 127.3 kg
[2024-09-19] MEDS: ACETAMINOPHEN 325 MG TAB PO ONE (17:35)
[2024-09-19 17:45] VITALS: BP 161/62; TEMP 96.9; O2SAT 98
== END 2024-09-19 18:41 | disposition home or self-care (01) ==
LOC: M ED 17:02
DX: Z76.5 Malingerer [conscious simulation] (principal); F31.9 Bipolar disorder, unspecified; Z88.0 Allergy status to penicillin; Z79.899 Other long term (current) drug therapy

== ENCOUNTER 2024-09-26 01:00 | Emergency (ER) | payer MEDICAID ==
[~2024-09-26] VITALS: Ht 167.6 cm; Wt 133.2 kg
[2024-09-26] MEDS: ACETAMINOPHEN 325 MG TAB PO ONE (04:47)
[2024-09-26 05:13] VITALS: BP 135/92; TEMP 97.6; O2SAT 99
== END 2024-09-26 05:17 | disposition home or self-care (01) ==
LOC: M ED 01:00
DX: S60.222A Contusion of left hand, initial encounter (principal); Y92.019 Unspecified place in single-family (private) house as the place of occurrence of the external cause; Y93.9 Activity, unspecified; Y99.9 Unspecified external cause status; Z88.0 Allergy status to penicillin; Z79.899 Other long term (current) drug therapy

== ENCOUNTER 2024-09-28 00:35 | Emergency (ER) | payer MEDICAID ==
[~2024-09-28] VITALS: Ht 167.6 cm; Wt 131.5 kg
[2024-09-28 03:14] LABS: BASO % 0.4 % (0.0-1.0); EOS # 0.1 10^3/uL (0.0-0.5); EOS % 0.5 % (0.0-3.0); HEMATOCRIT 38.3 % (36.0-47.0); HEMOGLOBIN 12.6 g/dl (12.0-15.5); LYMPH # 2.3 10^3/uL (1.5-5.0); LYMPH % 22.3 % (24.0-44.0); MEAN CORPUSCULAR HEMOGLOBIN 30.2 pg (27.0-33.0); MEAN CORPUSCULAR HGB CONC 32.9 g/dl (32.0-36.5); MEAN CORPUSCULAR VOLUME 91.8 fl (80.0-96.0); MONO # 0.7 10^3/uL (0.0-0.8); MONO % 7.1 % (2.0-8.0); NEUTROPHILS # 7.3 10^3/uL (1.5-8.5); NEUTROPHILS % 69.4 % (36.0-66.0); PLATELET COUNT, AUTOMATED 266 10^3/uL (150-450); RED BLOOD COUNT 4.17 10^6/uL (4.00-5.40); WHITE BLOOD COUNT 10.4 10^3/uL (4.0-10.0)
[2024-09-28 03:17] LABS: APPEARANCE, URINE HAZY (CLEAR); BACTERIA, URINE AUTO 1+ (NEGATIVE); BILIRUBIN, URINE AUTO NEGATIVE (NEGATIVE); BLOOD, URINE BLOOD NEGATIVE (NEGATIVE); COLOR, URINE YELLOW (YELLOW); GLUCOSE, URINE (UA) AUTO NEGATIVE (NEGATIVE); KETONE, URINE AUTO NEGATIVE (NEGATIVE); LEUKOCYTE ESTERASE, URINE AUTO 3+ (NEGATIVE); MUCUS, URINE SMALL (NEGATIVE); NITRITE, URINE AUTO NEGATIVE (NEGATIVE); PROTEIN, URINE AUTO 1+ mg/dL (NEGATIVE); RBC, URINE AUTO 9 /HPF (0-3); SPECIFIC GRAVITY URINE AUTO 1.027 (1.002-1.035); SQUAMOUS EPITHELIAL CELL UR AU 5 /HPF (0-6); WBC, URINE AUTO 26 /HPF (0-3)
[2024-09-28 03:33] LABS: AMPHETAMINES LEVEL URINE NEGATIVE (NEGATIVE); BARBITURATES URINE NEGATIVE (NEGATIVE); BENZODIAZEPINES URINE NEGATIVE (NEGATIVE); COCAINE METABOLITE URINE NEGATIVE (NEGATIVE)
[2024-09-28 03:34] LABS: CANNABINOIDS URINE NEGATIVE (NEGATIVE); METHADONE URINE NEGATIVE (NEGATIVE); OPIATES URINE NEGATIVE (NEGATIVE); PHENCYCLIDINE URINE NEGATIVE (NEGATIVE)
[2024-09-28 03:36] LABS: ALKALINE PHOSPHATASE 126 U/L (35-104); ALT/SGPT 31 U/L (7.0-40); AST/SGOT 36 U/L (<34); BILIRUBIN,TOTAL 0.5 MG/DL (0.3-1.2); BLOOD UREA NITROGEN 22 MG/DL (9-23); CALCIUM LEVEL 9.1 MG/DL (8.5-10.1); CARBON DIOXIDE LEVEL 23 MMOL/L (20-31); CHLORIDE LEVEL 105 MMOL/L (98-107); GLOMERULAR FILTRATION RATE > 60.0 (>60); GLUCOSE, FASTING 84 MG/DL (60-100); POTASSIUM SERUM 3.4 MMOL/L (3.5-5.1); SODIUM LEVEL 142 MMOL/L (136-145); TOTAL PROTEIN 7.3 G/DL (5.7-8.2)
[2024-09-28 04:31] LABS: ETHYL ALCOHOL (ETHANOL) < 0.003 % (0.000-0.010)
[2024-09-28 04:33] LABS: SALICYLATE LEVEL < 3.0 MG/DL (<30)
[2024-09-28] MEDS: ACETAMINOPHEN 500 MG TAB PO ONE (06:47)
[2024-09-28] MEDS: LORazepam 2 MG/ML 1ML VIAL IM ONE (07:05)
[2024-09-28] MEDS: diphenhydrAMINE 50MG/ML VIAL IM ONE (07:07)
[2024-09-28 09:02] VITALS: BP 133/72; TEMP 97.1; O2SAT 100
[2024-09-28] MEDS: IBUPROFEN 600MG TAB PO ONE (11:23)
[2024-09-28] MEDS ORDERED: guanFACINE 1 MG TAB PO SCH (21:00)
[2024-09-28] MEDS ORDERED: lamoTRIgine 25MG TAB PO SCH (21:00)
== END 2024-09-28 11:38 | disposition home or self-care (01) ==
LOC: M ED 00:35
DX: Z76.5 Malingerer [conscious simulation] (principal); F60.9 Personality disorder, unspecified; Z88.0 Allergy status to penicillin; Z79.899 Other long term (current) drug therapy
CPT/HCPCS: 36415; 73130; 80053; 80143; 80307; 81001; 82077; 85025; 93005; 99285; J1200; J2060

== ENCOUNTER 2024-09-30 00:11 | Emergency (ER) | payer MEDICAID ==
[~2024-09-30] VITALS: Ht 167.6 cm; Wt 127.3 kg
[2024-09-30 01:03] LABS: HEMOGLOBIN 12.2 g/dl (12.0-15.5); MEAN CORPUSCULAR HEMOGLOBIN 30.4 pg (27.0-33.0); MEAN CORPUSCULAR VOLUME 92.3 fl (80.0-96.0); PLATELET COUNT, AUTOMATED 245 10^3/uL (150-450); RED BLOOD COUNT 4.01 10^6/uL (4.00-5.40); WHITE BLOOD COUNT 8.7 10^3/uL (4.0-10.0)
[2024-09-30 01:25] LABS: ETHYL ALCOHOL (ETHANOL) 0.004 % (0.000-0.010)
[2024-09-30 01:26] LABS: SALICYLATE LEVEL < 3.0 MG/DL (<30)
[2024-09-30 01:30] LABS: ALBUMIN 3.7 G/DL (3.2-5.2); ALKALINE PHOSPHATASE 117 U/L (35-104); ALT/SGPT 31 U/L (7.0-40); AST/SGOT 27 U/L (<34); BILIRUBIN,DIRECT 0.1 MG/DL (<0.4); BILIRUBIN,TOTAL 0.3 MG/DL (0.3-1.2); BLOOD UREA NITROGEN 16 MG/DL (9-23); CARBON DIOXIDE LEVEL 24 MMOL/L (20-31); CHLORIDE LEVEL 109 MMOL/L (98-107); CREATININE FOR GFR 0.84 MG/DL (0.55-1.30); GLOMERULAR FILTRATION RATE > 60.0 (>60); GLUCOSE, FASTING 100 MG/DL (60-100); SODIUM LEVEL 142 MMOL/L (136-145); THYROID STIMULATING HORMONE 1.542 uIU/ML (0.55-4.78); TOTAL PROTEIN 6.9 G/DL (5.7-8.2)
[2024-09-30 01:35] LABS: AMPHETAMINES LEVEL URINE NEGATIVE (NEGATIVE); BARBITURATES URINE NEGATIVE (NEGATIVE); BENZODIAZEPINES URINE NEGATIVE (NEGATIVE); CANNABINOIDS URINE NEGATIVE (NEGATIVE); COCAINE METABOLITE URINE NEGATIVE (NEGATIVE); METHADONE URINE NEGATIVE (NEGATIVE); OPIATES URINE NEGATIVE (NEGATIVE); PHENCYCLIDINE URINE NEGATIVE (NEGATIVE)
[2024-09-30 08:00] LABS: HCG, SERUM QUANTITATIVE < 2.6 MIU/ML (<4.2)
[2024-09-30] MEDS ORDERED: HOME MED LIST COMPLETE! XX SCH (08:45)
[2024-09-30 10:14] VITALS: BP 165/77; TEMP 97.4; O2SAT 97
[2024-09-30] MEDS: IBUPROFEN 400MG TAB PO ONE (10:21)
== END 2024-09-30 14:54 | disposition home or self-care (01) ==
LOC: M ED 00:11
DX: F60.3 Borderline personality disorder (principal); Z88.0 Allergy status to penicillin

== ENCOUNTER 2024-10-01 23:27 | Emergency (ER) | payer MEDICAID ==
[~2024-10-01] VITALS: Ht 167.6 cm; Wt 127.3 kg
[2024-10-01 23:42] VITALS: BP 133/72; TEMP 97.9; O2SAT 97
[2024-10-02 00:35] LABS: HEMATOCRIT 38.4 % (36.0-47.0); HEMOGLOBIN 12.8 g/dl (12.0-15.5); MEAN CORPUSCULAR HEMOGLOBIN 30.5 pg (27.0-33.0); MEAN CORPUSCULAR HGB CONC 33.3 g/dl (32.0-36.5); MEAN CORPUSCULAR VOLUME 91.6 fl (80.0-96.0); PLATELET COUNT, AUTOMATED 247 10^3/uL (150-450); RED BLOOD COUNT 4.19 10^6/uL (4.00-5.40); WHITE BLOOD COUNT 8.1 10^3/uL (4.0-10.0)
[2024-10-02 00:38] LABS: BARBITURATES URINE NEGATIVE (NEGATIVE); BENZODIAZEPINES URINE NEGATIVE (NEGATIVE); CANNABINOIDS URINE NEGATIVE (NEGATIVE); COCAINE METABOLITE URINE NEGATIVE (NEGATIVE); METHADONE URINE NEGATIVE (NEGATIVE); OPIATES URINE NEGATIVE (NEGATIVE); PHENCYCLIDINE URINE NEGATIVE (NEGATIVE)
[2024-10-02 00:40] LABS: AMPHETAMINES LEVEL URINE NEGATIVE (NEGATIVE)
[2024-10-02 00:41] LABS: ETHYL ALCOHOL (ETHANOL) < 0.003 % (0.000-0.010)
[2024-10-02 00:43] LABS: SALICYLATE LEVEL < 3.0 MG/DL (<30)
[2024-10-02 00:51] LABS: HCG, SERUM QUALITATIVE NEGATIVE (NEGATIVE)
[2024-10-02 00:55] LABS: ALBUMIN 3.8 G/DL (3.2-5.2); ALKALINE PHOSPHATASE 117 U/L (35-104); ALT/SGPT 30 U/L (7.0-40); AST/SGOT 25 U/L (<34); BILIRUBIN,DIRECT 0.1 MG/DL (<0.4); BILIRUBIN,TOTAL 0.3 MG/DL (0.3-1.2); BLOOD UREA NITROGEN 15 MG/DL (9-23); CALCIUM LEVEL 8.9 MG/DL (8.5-10.1); CARBON DIOXIDE LEVEL 24 MMOL/L (20-31); CHLORIDE LEVEL 107 MMOL/L (98-107); CREATININE FOR GFR 0.61 MG/DL (0.55-1.30); GLOMERULAR FILTRATION RATE > 60.0 (>60); GLUCOSE, FASTING 109 MG/DL (60-100); POTASSIUM SERUM 3.8 MMOL/L (3.5-5.1); SODIUM LEVEL 141 MMOL/L (136-145); THYROID STIMULATING HORMONE 1.738 uIU/ML (0.55-4.78)
[2024-10-02] MEDS: ACETAMINOPHEN 500 MG TAB PO ONE (02:28)
== END 2024-10-02 09:25 | disposition home or self-care (01) ==
LOC: M ED 23:27
DX: F32.A Depression, unspecified (principal); Z88.0 Allergy status to penicillin

== ENCOUNTER 2024-10-03 17:13 | Emergency (ER) | payer MEDICAID ==
[~2024-10-03] VITALS: Ht 167.6 cm; Wt 127.3 kg
[2024-10-03 17:26] VITALS: BP 156/69; TEMP 97.2; O2SAT 100
[2024-10-03 17:50] LABS: HEMATOCRIT 40.3 % (36.0-47.0); HEMOGLOBIN 13.1 g/dl (12.0-15.5); MEAN CORPUSCULAR HEMOGLOBIN 29.8 pg (27.0-33.0); MEAN CORPUSCULAR HGB CONC 32.5 g/dl (32.0-36.5); MEAN CORPUSCULAR VOLUME 91.8 fl (80.0-96.0); PLATELET COUNT, AUTOMATED 291 10^3/uL (150-450); RED BLOOD COUNT 4.39 10^6/uL (4.00-5.40); WHITE BLOOD COUNT 6.7 10^3/uL (4.0-10.0)
[2024-10-03 18:07] LABS: AMPHETAMINES LEVEL URINE NEGATIVE (NEGATIVE); BARBITURATES URINE NEGATIVE (NEGATIVE); BENZODIAZEPINES URINE NEGATIVE (NEGATIVE); CANNABINOIDS URINE NEGATIVE (NEGATIVE); COCAINE METABOLITE URINE NEGATIVE (NEGATIVE); METHADONE URINE NEGATIVE (NEGATIVE); OPIATES URINE NEGATIVE (NEGATIVE); PHENCYCLIDINE URINE NEGATIVE (NEGATIVE)
[2024-10-03 18:10] LABS: ETHYL ALCOHOL (ETHANOL) < 0.003 % (0.000-0.010)
[2024-10-03 18:11] LABS: ALBUMIN 3.8 G/DL (3.2-5.2); ALKALINE PHOSPHATASE 121 U/L (35-104); ALT/SGPT 35 U/L (7.0-40); AST/SGOT 28 U/L (<34); BILIRUBIN,DIRECT < 0.1 MG/DL (<0.4); BILIRUBIN,TOTAL 0.3 MG/DL (0.3-1.2); BLOOD UREA NITROGEN 15 MG/DL (9-23); CALCIUM LEVEL 9.3 MG/DL (8.5-10.1); CARBON DIOXIDE LEVEL 26 MMOL/L (20-31); CHLORIDE LEVEL 105 MMOL/L (98-107); GLOMERULAR FILTRATION RATE > 60.0 (>60); GLUCOSE, FASTING 101 MG/DL (60-100); SODIUM LEVEL 140 MMOL/L (136-145); TOTAL PROTEIN 7.1 G/DL (5.7-8.2)
[2024-10-03 18:12] LABS: SALICYLATE LEVEL < 3.0 MG/DL (<30)
[2024-10-03 18:14] LABS: THYROID STIMULATING HORMONE 0.611 uIU/ML (0.55-4.78)
[2024-10-03 18:18] LABS: HCG, SERUM QUALITATIVE NEGATIVE (NEGATIVE)
[2024-10-03] MEDS ORDERED: HOME MED LIST COMPLETE! XX SCH (18:45)
== END 2024-10-03 19:23 | disposition home or self-care (01) ==
LOC: M ED 17:13
DX: F32.A Depression, unspecified (principal); F31.9 Bipolar disorder, unspecified; Z88.0 Allergy status to penicillin

== ENCOUNTER 2024-10-04 21:24 | Emergency (ER) | payer MEDICAID ==
[~2024-10-04] VITALS: Ht 167.6 cm; Wt 127.0 kg
[2024-10-04] MEDS ORDERED: HOME MED LIST COMPLETE! XX SCH (22:45)
[2024-10-04 23:07] LABS: AMPHETAMINES LEVEL URINE NEGATIVE (NEGATIVE)
[2024-10-04 23:08] LABS: BARBITURATES URINE NEGATIVE (NEGATIVE); BENZODIAZEPINES URINE NEGATIVE (NEGATIVE); CANNABINOIDS URINE NEGATIVE (NEGATIVE); COCAINE METABOLITE URINE NEGATIVE (NEGATIVE); METHADONE URINE NEGATIVE (NEGATIVE); OPIATES URINE NEGATIVE (NEGATIVE); PHENCYCLIDINE URINE NEGATIVE (NEGATIVE)
[2024-10-05] MEDS: IBUPROFEN 600MG TAB PO ONE ×2 (00:10→08:53)
[2024-10-05 12:40] VITALS: BP 136/84; TEMP 98; O2SAT 98
== END 2024-10-05 12:30 | disposition home or self-care (01) ==
LOC: M ED 21:24
DX: Z76.5 Malingerer [conscious simulation] (principal); F60.3 Borderline personality disorder; Z88.0 Allergy status to penicillin

== ENCOUNTER 2024-10-14 20:39 | Emergency (ER) | payer MEDICAID, SELFPAY ==
[~2024-10-14 20:39] MED LIST changes: +LAMO-18 PO; -LAMO25TA4 PO; +TOPI-256 PO; +TOPI-257 PO; -TOPI100T9 PO; -TOPI25TA10 PO
[2024-10-14 21:40] LABS: HEMATOCRIT 37.8 % (36.0-47.0); HEMOGLOBIN 12.5 g/dl (12.0-15.5); MEAN CORPUSCULAR HEMOGLOBIN 30.2 pg (27.0-33.0); MEAN CORPUSCULAR HGB CONC 33.1 g/dl (32.0-36.5); MEAN CORPUSCULAR VOLUME 91.3 fl (80.0-96.0); PLATELET COUNT, AUTOMATED 237 10^3/uL (150-450); RED BLOOD COUNT 4.14 10^6/uL (4.00-5.40); WHITE BLOOD COUNT 8.6 10^3/uL (4.0-10.0)
[2024-10-14 22:05] LABS: AMPHETAMINES LEVEL URINE NEGATIVE (NEGATIVE); BARBITURATES URINE NEGATIVE (NEGATIVE); COCAINE METABOLITE URINE NEGATIVE (NEGATIVE)
[2024-10-14 22:06] LABS: BENZODIAZEPINES URINE NEGATIVE (NEGATIVE); CANNABINOIDS URINE NEGATIVE (NEGATIVE); METHADONE URINE NEGATIVE (NEGATIVE); OPIATES URINE NEGATIVE (NEGATIVE); PHENCYCLIDINE URINE NEGATIVE (NEGATIVE)
[2024-10-14 22:08] LABS: ETHYL ALCOHOL (ETHANOL) < 0.003 % (0.000-0.010)
[2024-10-14 22:09] LABS: HCG, SERUM QUALITATIVE NEGATIVE (NEGATIVE)
[2024-10-14 22:10] LABS: ALBUMIN 3.6 G/DL (3.2-5.2); ALKALINE PHOSPHATASE 125 U/L (35-104); ALT/SGPT 56 U/L (7.0-40); AST/SGOT 23 U/L (<34); BILIRUBIN,DIRECT < 0.1 MG/DL (<0.4); BILIRUBIN,TOTAL 0.2 MG/DL (0.3-1.2); BLOOD UREA NITROGEN 22 MG/DL (9-23); CALCIUM LEVEL 8.8 MG/DL (8.5-10.1); CARBON DIOXIDE LEVEL 22 MMOL/L (20-31); CHLORIDE LEVEL 110 MMOL/L (98-107); CREATININE FOR GFR 0.53 MG/DL (0.55-1.30); GLOMERULAR FILTRATION RATE > 60.0 (>60); GLUCOSE, FASTING 99 MG/DL (60-100); POTASSIUM SERUM 4.3 MMOL/L (3.5-5.1); SALICYLATE LEVEL < 3.0 MG/DL (<30); SODIUM LEVEL 143 MMOL/L (136-145); TOTAL PROTEIN 6.8 G/DL (5.7-8.2)
[2024-10-14 22:12] LABS: THYROID STIMULATING HORMONE 0.994 uIU/ML (0.55-4.78)
[2024-10-15] MEDS ORDERED: ABIL1TAB11 PO (08:09)
[2024-10-15] MEDS ORDERED: LEXA1TAB2 PO (08:09)
[2024-10-15] MEDS ORDERED: HOME MED LIST COMPLETE! XX SCH (11:10)
[2024-10-15 11:27] VITALS: BP 113/63; TEMP 97.8; O2SAT 100
== END 2024-10-15 11:27 | disposition home or self-care (01) ==
LOC: M ED 20:39
DX: F60.3 Borderline personality disorder (principal); F31.9 Bipolar disorder, unspecified; Z88.0 Allergy status to penicillin; Z79.899 Other long term (current) drug therapy

== ENCOUNTER 2024-10-18 20:04 | Emergency (ER) | payer BC, MEDICAID, OTHER, SELFPAY ==
[~2024-10-18] VITALS: Ht 167.6 cm; Wt 127.3 kg
[~2024-10-18 20:04] MED LIST changes: -LAMO-18 PO; +LAMO25TA4 PO; +LEXA1TAB2 PO; -TOPI-256 PO; -TOPI-257 PO; +TOPI100T9 PO; +TOPI25TA10 PO
[2024-10-18 20:46] LABS: HEMATOCRIT 39.1 % (36.0-47.0); HEMOGLOBIN 12.7 g/dl (12.0-15.5); MEAN CORPUSCULAR HEMOGLOBIN 29.7 pg (27.0-33.0); MEAN CORPUSCULAR HGB CONC 32.5 g/dl (32.0-36.5); MEAN CORPUSCULAR VOLUME 91.4 fl (80.0-96.0); PLATELET COUNT, AUTOMATED 274 10^3/uL (150-450); RED BLOOD COUNT 4.28 10^6/uL (4.00-5.40); WHITE BLOOD COUNT 10.9 10^3/uL (4.0-10.0)
[2024-10-18 21:09] LABS: AMPHETAMINES LEVEL URINE NEGATIVE (NEGATIVE); BARBITURATES URINE NEGATIVE (NEGATIVE)
[2024-10-18 21:10] LABS: BENZODIAZEPINES URINE NEGATIVE (NEGATIVE); CANNABINOIDS URINE NEGATIVE (NEGATIVE); COCAINE METABOLITE URINE NEGATIVE (NEGATIVE); METHADONE URINE NEGATIVE (NEGATIVE); OPIATES URINE NEGATIVE (NEGATIVE); PHENCYCLIDINE URINE NEGATIVE (NEGATIVE)
[2024-10-18 21:24] LABS: ETHYL ALCOHOL (ETHANOL) < 0.003 % (0.000-0.010)
[2024-10-18 21:26] LABS: SALICYLATE LEVEL < 3.0 MG/DL (<30)
[2024-10-18] MEDS: ONDANSETRON 4MG ORAL DISINTEGRATING TAB PO ONE (21:53)
[2024-10-18] MEDS: ESCITALOPRAM OXALATE 10 MG TAB (LEXAPRO) PO ONE (21:53)
[2024-10-18 22:40] LABS: ALBUMIN 3.9 G/DL (3.2-5.2); ALKALINE PHOSPHATASE 133 U/L (35-104); ALT/SGPT 36 U/L (7.0-40); AST/SGOT 14 U/L (<34); BILIRUBIN,DIRECT 0.1 MG/DL (<0.4); BILIRUBIN,TOTAL 0.3 MG/DL (0.3-1.2); BLOOD UREA NITROGEN 22 MG/DL (9-23); CALCIUM LEVEL 9.9 MG/DL (8.5-10.1); CARBON DIOXIDE LEVEL 25 MMOL/L (20-31); CHLORIDE LEVEL 108 MMOL/L (98-107); CREATININE FOR GFR 0.59 MG/DL (0.55-1.30); GLOMERULAR FILTRATION RATE > 90.0 (>60); GLUCOSE, FASTING 93 MG/DL (60-100); POTASSIUM SERUM 4.3 MMOL/L (3.5-5.1); SODIUM LEVEL 142 MMOL/L (136-145); THYROID STIMULATING HORMONE 1.086 uIU/ML (0.55-4.78); TOTAL PROTEIN 7.3 G/DL (5.7-8.2)
[2024-10-18 23:40] VITALS: BP 131/85; TEMP 97.7; O2SAT 98
== END 2024-10-18 23:40 | disposition home or self-care (01) ==
LOC: M ED 20:04
DX: F43.10 Post-traumatic stress disorder, unspecified (principal); F31.9 Bipolar disorder, unspecified; Z88.0 Allergy status to penicillin; Z79.899 Other long term (current) drug therapy

== ENCOUNTER 2024-10-19 18:33 | Emergency (ER) | payer SELFPAY ==
[~2024-10-19] VITALS: Ht 167.6 cm; Wt 179.0 kg
[2024-10-19 18:37] VITALS: BP 180/91; TEMP 98.1; O2SAT 98
[2024-10-19 19:36] LABS: AMPHETAMINES LEVEL URINE NEGATIVE (NEGATIVE); BARBITURATES URINE NEGATIVE (NEGATIVE)
[2024-10-19 19:37] LABS: BENZODIAZEPINES URINE NEGATIVE (NEGATIVE); CANNABINOIDS URINE NEGATIVE (NEGATIVE); COCAINE METABOLITE URINE NEGATIVE (NEGATIVE); METHADONE URINE NEGATIVE (NEGATIVE); OPIATES URINE NEGATIVE (NEGATIVE); PHENCYCLIDINE URINE NEGATIVE (NEGATIVE)
[2024-10-19] MEDS: ESCITALOPRAM OXALATE 10 MG TAB (LEXAPRO) PO ONE (19:45)
== END 2024-10-19 19:58 | disposition home or self-care (01) ==
LOC: M ED 18:33
DX: F43.10 Post-traumatic stress disorder, unspecified (principal); F31.9 Bipolar disorder, unspecified; F90.9 Attention-deficit hyperactivity disorder, unspecified type; Z88.0 Allergy status to penicillin; Z79.899 Other long term (current) drug therapy

== ENCOUNTER 2024-10-21 00:35 | Emergency (ER) | payer SELFPAY ==
[2024-10-21 01:25] LABS: AMPHETAMINES LEVEL URINE NEGATIVE (NEGATIVE); BARBITURATES URINE NEGATIVE (NEGATIVE); BENZODIAZEPINES URINE NEGATIVE (NEGATIVE); COCAINE METABOLITE URINE NEGATIVE (NEGATIVE); METHADONE URINE NEGATIVE (NEGATIVE); OPIATES URINE NEGATIVE (NEGATIVE); PHENCYCLIDINE URINE NEGATIVE (NEGATIVE)
[2024-10-21 01:26] LABS: CANNABINOIDS URINE NEGATIVE (NEGATIVE)
[2024-10-21 01:28] LABS: ETHYL ALCOHOL (ETHANOL) < 0.003 % (0.000-0.010)
[2024-10-21 01:30] LABS: ALBUMIN 3.8 G/DL (3.2-5.2); ALKALINE PHOSPHATASE 127 U/L (35-104); ALT/SGPT 33 U/L (7.0-40); AST/SGOT 20 U/L (<34); BILIRUBIN,DIRECT 0.1 MG/DL (<0.4); BILIRUBIN,TOTAL 0.3 MG/DL (0.3-1.2); BLOOD UREA NITROGEN 18 MG/DL (9-23); CALCIUM LEVEL 9.1 MG/DL (8.5-10.1); CARBON DIOXIDE LEVEL 25 MMOL/L (20-31); CHLORIDE LEVEL 105 MMOL/L (98-107); CREATININE FOR GFR 0.58 MG/DL (0.55-1.30); GLOMERULAR FILTRATION RATE > 90.0 (>60); GLUCOSE, FASTING 85 MG/DL (60-100); POTASSIUM SERUM 3.9 MMOL/L (3.5-5.1); SALICYLATE LEVEL < 3.0 MG/DL (<30); SODIUM LEVEL 138 MMOL/L (136-145)
[2024-10-21 01:32] LABS: THYROID STIMULATING HORMONE 1.012 uIU/ML (0.55-4.78)
[2024-10-21 01:34] LABS: HEMATOCRIT 38.3 % (36.0-47.0); HEMOGLOBIN 12.7 g/dl (12.0-15.5); MEAN CORPUSCULAR HEMOGLOBIN 30.4 pg (27.0-33.0); MEAN CORPUSCULAR HGB CONC 33.2 g/dl (32.0-36.5); MEAN CORPUSCULAR VOLUME 91.6 fl (80.0-96.0); PLATELET COUNT, AUTOMATED 271 10^3/uL (150-450); RED BLOOD COUNT 4.18 10^6/uL (4.00-5.40)
[2024-10-21] MEDS: ONDANSETRON 4MG ORAL DISINTEGRATING TAB PO ONE (04:46)
[2024-10-21 04:48] VITALS: BP 119/67; TEMP 98; O2SAT 99
[2024-10-22] MEDS ORDERED: LEXA1TAB PO (09:22)
[2024-10-23] MEDS ORDERED: OVERDOSE RESCUE KIT XX ONE (15:07)
== END 2024-10-21 09:19 | disposition home or self-care (01) ==
LOC: M ED 00:35
DX: F60.3 Borderline personality disorder (principal); Z88.0 Allergy status to penicillin; Z79.899 Other long term (current) drug therapy

== ENCOUNTER 2024-10-21 21:35 | Inpatient (IN) | payer SELFPAY ==
[~2024-10-21] VITALS: Ht 167.6 cm; Wt 138.1 kg
[2024-10-21 22:22] LABS: HEMOGLOBIN 12.2 g/dl (12.0-15.5); MEAN CORPUSCULAR HEMOGLOBIN 29.5 pg (27.0-33.0); MEAN CORPUSCULAR HGB CONC 32.1 g/dl (32.0-36.5); PLATELET COUNT, AUTOMATED 272 10^3/uL (150-450); RED BLOOD COUNT 4.13 10^6/uL (4.00-5.40); WHITE BLOOD COUNT 8.7 10^3/uL (4.0-10.0)
[2024-10-21 22:45] LABS: AMPHETAMINES LEVEL URINE NEGATIVE (NEGATIVE); BARBITURATES URINE NEGATIVE (NEGATIVE); BENZODIAZEPINES URINE NEGATIVE (NEGATIVE); CANNABINOIDS URINE NEGATIVE (NEGATIVE); COCAINE METABOLITE URINE NEGATIVE (NEGATIVE); METHADONE URINE NEGATIVE (NEGATIVE); OPIATES URINE NEGATIVE (NEGATIVE); PHENCYCLIDINE URINE NEGATIVE (NEGATIVE)
[2024-10-21 22:49] LABS: SALICYLATE LEVEL < 3.0 MG/DL (<30)
[2024-10-21 22:51] LABS: THYROID STIMULATING HORMONE 1.344 uIU/ML (0.55-4.78)
[2024-10-21 22:52] LABS: ETHYL ALCOHOL (ETHANOL) < 0.003 % (0.000-0.010)
[2024-10-21 22:53] LABS: ALBUMIN 3.6 G/DL (3.2-5.2); ALKALINE PHOSPHATASE 127 U/L (35-104); ALT/SGPT 33 U/L (7.0-40); AST/SGOT 22 U/L (<34); BILIRUBIN,DIRECT < 0.1 MG/DL (<0.4); BILIRUBIN,TOTAL 0.3 MG/DL (0.3-1.2); BLOOD UREA NITROGEN 18 MG/DL (9-23); CALCIUM LEVEL 9.3 MG/DL (8.5-10.1); CARBON DIOXIDE LEVEL 27 MMOL/L (20-31); CHLORIDE LEVEL 108 MMOL/L (98-107); CREATININE FOR GFR 0.61 MG/DL (0.55-1.30); GLOMERULAR FILTRATION RATE > 90.0 (>60); GLUCOSE, FASTING 95 MG/DL (60-100); POTASSIUM SERUM 4.4 MMOL/L (3.5-5.1); SODIUM LEVEL 144 MMOL/L (136-145); TOTAL PROTEIN 6.8 G/DL (5.7-8.2)
[2024-10-21 23:16] LABS: HCG, SERUM QUALITATIVE NEGATIVE (NEGATIVE)
[2024-10-22] MEDS: IBUPROFEN 600MG TAB PO ONE (00:33)
[2024-10-22] MEDS: FAMOTIDINE 20 MG TAB PO ONE (06:39)
[2024-10-22] MEDS ORDERED: diphenhydrAMINE 25MG CAP PO PRN (09:00)
[2024-10-22] MEDS ORDERED: MAALOX 30 ML SUSP *UDC PO PRN (09:00)
[2024-10-22] MEDS ORDERED: traZODone 50 MG TAB PO PRN (09:00)
[2024-10-22] MEDS ORDERED: MOM 30ML SUSPENSION UDC PO PRN (09:00)
[2024-10-22] MEDS ORDERED: LEXA1TAB PO (09:22)
[2024-10-22] MEDS ORDERED: HOME MED LIST COMPLETE! XX SCH (09:25)
[2024-10-22 10:19] VITALS: BP 137/71; TEMP 96.9; O2SAT 98
[2024-10-22] MEDS: ACETAMINOPHEN 325 MG TAB PO PRN (10:37)
[2024-10-22] MEDS: NICOTINE POLACRILEX 2 MG GUM PO PRN (11:18)
[2024-10-22] MEDS: OLANZapine ORAL DISINTEGRATING TAB 5MG PO PRN (12:12)
[2024-10-22] MEDS: IBUPROFEN 400MG TAB PO PRN (14:05)
[2024-10-22 15:51] VITALS: BP 141/60; TEMP 97.6; O2SAT 99
[2024-10-22] MEDS: ONDANSETRON 4MG ORAL DISINTEGRATING TAB PO ONE (20:14)
[2024-10-22] MEDS: NYSTATIN CREAM 15GM TOP SCH (20:15)
[2024-10-22] MEDS: ESCITALOPRAM OXALATE 10 MG TAB (LEXAPRO) PO SCH (20:58)
[2024-10-22] MEDS: guanFACINE 1 MG TAB PO SCH (21:00)
[2024-10-23] MEDS ORDERED: ABIL1TAB11 PO (13:39)
[2024-10-23] MEDS ORDERED: LEXA1TAB PO (13:39)
== END 2024-10-23 14:30 | disposition home or self-care (01) | DRG 752 ==
LOC: M ED 21:35 → M ED INP 10-22 08:32 → M PSY 10-22 09:57
PROVIDERS: ADMIT Psychiatry & Neurology Psychiatry; ATTEND Psychiatry & Neurology Psychiatry
DX: F60.3 Borderline personality disorder (principal); Z68.42 Body mass index [BMI] 45.0-49.9, adult; R45.851 Suicidal ideations; F79 Unspecified intellectual disabilities; E66.01 Morbid (severe) obesity due to excess calories; Z76.5 Malingerer [conscious simulation]; Z79.899 Other long term (current) drug therapy; Z88.0 Allergy status to penicillin; Z56.0 Unemployment, unspecified

== ENCOUNTER 2024-10-26 23:23 | Emergency (ER) | payer MEDICAID, SELFPAY ==
[~2024-10-26] VITALS: Ht 167.6 cm; Wt 127.3 kg
[~2024-10-26 23:23] MED LIST changes: +TOPI-256 PO; +TOPI-257 PO; -TOPI100T9 PO; -TOPI25TA10 PO
[2024-10-27 00:16] LABS: HEMATOCRIT 38.4 % (36.0-47.0); HEMOGLOBIN 12.4 g/dl (12.0-15.5); MEAN CORPUSCULAR HEMOGLOBIN 29.8 pg (27.0-33.0); MEAN CORPUSCULAR HGB CONC 32.3 g/dl (32.0-36.5); MEAN CORPUSCULAR VOLUME 92.3 fl (80.0-96.0); PLATELET COUNT, AUTOMATED 246 10^3/uL (150-450); RED BLOOD COUNT 4.16 10^6/uL (4.00-5.40); WHITE BLOOD COUNT 10.4 10^3/uL (4.0-10.0)
[2024-10-27 00:19] LABS: AMPHETAMINES LEVEL URINE NEGATIVE (NEGATIVE); BARBITURATES URINE NEGATIVE (NEGATIVE); BENZODIAZEPINES URINE NEGATIVE (NEGATIVE); CANNABINOIDS URINE NEGATIVE (NEGATIVE); COCAINE METABOLITE URINE NEGATIVE (NEGATIVE); METHADONE URINE NEGATIVE (NEGATIVE); OPIATES URINE NEGATIVE (NEGATIVE); PHENCYCLIDINE URINE NEGATIVE (NEGATIVE)
[2024-10-27 00:21] LABS: ETHYL ALCOHOL (ETHANOL) < 0.003 % (0.000-0.010)
[2024-10-27 00:23] LABS: ALBUMIN 3.8 G/DL (3.2-5.2); ALKALINE PHOSPHATASE 119 U/L (35-104); ALT/SGPT 28 U/L (7.0-40); AST/SGOT 14 U/L (<34); BILIRUBIN,DIRECT < 0.1 MG/DL (<0.4); BILIRUBIN,TOTAL 0.3 MG/DL (0.3-1.2); BLOOD UREA NITROGEN 24 MG/DL (9-23); CALCIUM LEVEL 8.8 MG/DL (8.5-10.1); CARBON DIOXIDE LEVEL 23 MMOL/L (20-31); CHLORIDE LEVEL 107 MMOL/L (98-107); CREATININE FOR GFR 0.54 MG/DL (0.55-1.30); GLOMERULAR FILTRATION RATE > 90.0 (>60); GLUCOSE, FASTING 108 MG/DL (60-100); POTASSIUM SERUM 4.1 MMOL/L (3.5-5.1); SALICYLATE LEVEL < 3.0 MG/DL (<30); SODIUM LEVEL 139 MMOL/L (136-145); TOTAL PROTEIN 7.2 G/DL (5.7-8.2)
[2024-10-27 00:25] LABS: THYROID STIMULATING HORMONE 1.528 uIU/ML (0.55-4.78)
[2024-10-27] MEDS: OLANZapine 5 MG TAB PO ONE (00:31)
[2024-10-27 01:50] LABS: RSV AMPLIFICATION NEGATIVE (NEGATIVE)
[2024-10-27 08:09] VITALS: BP 141/86; TEMP 97.2; O2SAT 97
== END 2024-10-27 11:24 | disposition home or self-care (01) ==
LOC: M ED 23:23
DX: Z76.5 Malingerer [conscious simulation] (principal); Z88.0 Allergy status to penicillin; Z79.899 Other long term (current) drug therapy

== ENCOUNTER 2024-10-28 00:02 | Emergency (ER) | payer SELFPAY ==
[~2024-10-28] VITALS: Ht 167.6 cm; Wt 139.4 kg
[~2024-10-28 00:02] MED LIST changes: -TOPI-256 PO; -TOPI-257 PO; +TOPI100T9 PO; +TOPI25TA10 PO
[2024-10-28] MEDS: NAPROXEN 250 MG TAB PO ONE (01:26)
[2024-10-28] MEDS: ONDANSETRON 4MG ORAL DISINTEGRATING TAB PO ONE (01:26)
[2024-10-28 02:50] VITALS: BP 126/62; TEMP 97.6; O2SAT 99
== END 2024-10-28 02:52 | disposition home or self-care (01) ==
LOC: M ED 00:02
DX: M25.571 Pain in right ankle and joints of right foot (principal); R19.7 Diarrhea, unspecified; Z88.0 Allergy status to penicillin; Z79.899 Other long term (current) drug therapy

== ENCOUNTER 2024-10-28 19:06 | Emergency (ER) | payer SELFPAY ==
[~2024-10-28] VITALS: Ht 172.7 cm; Wt 127.7 kg
[2024-10-28 19:14] VITALS: BP 138/73; TEMP 97.4; O2SAT 98
== END 2024-10-28 20:29 | disposition home or self-care (01) ==
LOC: M ED 19:06
DX: F60.3 Borderline personality disorder (principal); Z76.5 Malingerer [conscious simulation]; Z88.0 Allergy status to penicillin; Z79.899 Other long term (current) drug therapy

== ENCOUNTER 2024-10-28 20:41 | Emergency (ER) | payer SELFPAY ==
[~2024-10-28] VITALS: Ht 172.7 cm; Wt 127.8 kg
[2024-10-28 22:12] LABS: HEMATOCRIT 39.8 % (36.0-47.0); HEMOGLOBIN 13.2 g/dl (12.0-15.5); MEAN CORPUSCULAR HEMOGLOBIN 30.7 pg (27.0-33.0); MEAN CORPUSCULAR HGB CONC 33.2 g/dl (32.0-36.5); MEAN CORPUSCULAR VOLUME 92.6 fl (80.0-96.0); PLATELET COUNT, AUTOMATED 259 10^3/uL (150-450); WHITE BLOOD COUNT 12.1 10^3/uL (4.0-10.0)
[2024-10-28] MEDS: ESCITALOPRAM OXALATE 10 MG TAB (LEXAPRO) PO ONE (22:15)
[2024-10-28 22:20] LABS: APPEARANCE, URINE CLOUDY (CLEAR); BACTERIA, URINE AUTO 1+ (NEGATIVE); BILIRUBIN, URINE AUTO NEGATIVE (NEGATIVE); BLOOD, URINE BLOOD NEGATIVE (NEGATIVE); COLOR, URINE YELLOW (YELLOW); GLUCOSE, URINE (UA) AUTO NEGATIVE (NEGATIVE); KETONE, URINE AUTO TRACE mg/dL (NEGATIVE); LEUKOCYTE ESTERASE, URINE AUTO NEGATIVE (NEGATIVE); MUCUS, URINE SMALL (NEGATIVE); NITRITE, URINE AUTO NEGATIVE (NEGATIVE); PROTEIN, URINE AUTO 2+ mg/dL (NEGATIVE); RBC, URINE AUTO 2 /HPF (0-3); SPECIFIC GRAVITY URINE AUTO 1.035 (1.002-1.035); SQUAMOUS EPITHELIAL CELL UR AU 4 /HPF (0-6); UROBILINOGEN, URINE AUTO 0.2 mg/dL (0.0-2.0); WBC, URINE AUTO 3 /HPF (0-3)
[2024-10-28 22:24] LABS: AMPHETAMINES LEVEL URINE NEGATIVE (NEGATIVE); BENZODIAZEPINES URINE NEGATIVE (NEGATIVE); CANNABINOIDS URINE NEGATIVE (NEGATIVE); PHENCYCLIDINE URINE NEGATIVE (NEGATIVE)
[2024-10-28 22:25] LABS: BARBITURATES URINE NEGATIVE (NEGATIVE); COCAINE METABOLITE URINE NEGATIVE (NEGATIVE); METHADONE URINE NEGATIVE (NEGATIVE); OPIATES URINE NEGATIVE (NEGATIVE)
[2024-10-28 22:27] LABS: ETHYL ALCOHOL (ETHANOL) 0.004 % (0.000-0.010); HCG, SERUM QUALITATIVE NEGATIVE (NEGATIVE)
[2024-10-28 22:29] LABS: SALICYLATE LEVEL < 3.0 MG/DL (<30)
[2024-10-28 22:36] LABS: ALBUMIN 4.1 G/DL (3.2-5.2); ALKALINE PHOSPHATASE 133 U/L (35-104); ALT/SGPT 32 U/L (7.0-40); AST/SGOT 25 U/L (<34); BILIRUBIN,DIRECT 0.2 MG/DL (<0.4); BILIRUBIN,TOTAL 0.5 MG/DL (0.3-1.2); BLOOD UREA NITROGEN 24 MG/DL (9-23); CALCIUM LEVEL 9.7 MG/DL (8.5-10.1); CARBON DIOXIDE LEVEL 25 MMOL/L (20-31); CHLORIDE LEVEL 106 MMOL/L (98-107); GLOMERULAR FILTRATION RATE > 90.0 (>60); GLUCOSE, FASTING 91 MG/DL (60-100); POTASSIUM SERUM 3.9 MMOL/L (3.5-5.1); SODIUM LEVEL 142 MMOL/L (136-145); TOTAL PROTEIN 7.4 G/DL (5.7-8.2)
[2024-10-29 07:30] VITALS: BP 144/82; TEMP 98.4; O2SAT 100
== END 2024-10-29 09:40 | disposition home or self-care (01) ==
LOC: M ED 20:41
DX: R45.851 Suicidal ideations (principal); F32.A Depression, unspecified; I45.10 Unspecified right bundle-branch block; F17.210 Nicotine dependence, cigarettes, uncomplicated; Z88.0 Allergy status to penicillin; Z79.899 Other long term (current) drug therapy

== ENCOUNTER 2024-10-30 17:57 | Emergency (ER) | payer SELFPAY | END 2024-10-30 18:01 | disposition left against medical advice (07) | LOC: M ED 17:57 | DX: Z53.21 Procedure and treatment not carried out due to patient leaving prior to being seen by health care provider (principal) ==

== ENCOUNTER 2024-10-30 19:46 | Inpatient (IN) | payer SELFPAY ==
[~2024-10-30] VITALS: Ht 167.6 cm; Wt 137.5 kg
[2024-10-30 20:31] LABS: VENOUS BASE EXCESS -2.3 (-2.0-2.0); VENOUS HCO3 25.6 MMOL/L (23.0-27.0); VENOUS O2 SATURATION 48.1 % (60.0-80.0); VENOUS PARTIAL PRESSURE CO2 57.5 mmHg (38.0-50.0); VENOUS PH 7.267 UNITS (7.330-7.430); VENOUS STANDARD HCO3 21.5 MMOL/L; VENOUS TOTAL CO2 27.4 MMOL/L (24.0-28.0)
[2024-10-30 20:34] LABS: BASO % 0.3 % (0.0-1.0); EOS # 0.1 10^3/uL (0.0-0.5); EOS % 1.1 % (0.0-3.0); HEMATOCRIT 40.5 % (36.0-47.0); HEMOGLOBIN 12.9 g/dl (12.0-15.5); LYMPH # 2.2 10^3/uL (1.5-5.0); LYMPH % 23.7 % (24.0-44.0); MEAN CORPUSCULAR HEMOGLOBIN 29.9 pg (27.0-33.0); MEAN CORPUSCULAR HGB CONC 31.9 g/dl (32.0-36.5); MONO # 0.5 10^3/uL (0.0-0.8); MONO % 5.5 % (2.0-8.0); NEUTROPHILS # 6.5 10^3/uL (1.5-8.5); PLATELET COUNT, AUTOMATED 246 10^3/uL (150-450); RED BLOOD COUNT 4.31 10^6/uL (4.00-5.40); WHITE BLOOD COUNT 9.4 10^3/uL (4.0-10.0)
[2024-10-30 20:45] LABS: BARBITURATES URINE NEGATIVE (NEGATIVE); COCAINE METABOLITE URINE NEGATIVE (NEGATIVE); METHADONE URINE NEGATIVE (NEGATIVE); PHENCYCLIDINE URINE NEGATIVE (NEGATIVE)
[2024-10-30 20:46] LABS: AMPHETAMINES LEVEL URINE NEGATIVE (NEGATIVE); BENZODIAZEPINES URINE NEGATIVE (NEGATIVE); CANNABINOIDS URINE NEGATIVE (NEGATIVE)
[2024-10-30 20:48] LABS: OPIATES URINE POSITIVE (NEGATIVE)
[2024-10-30] MEDS: CHARCOAL ACTIVATED LIQUID 25GM/120ML BTL PO ONE (20:51)
[2024-10-30] MEDS: DEXTROSE 50% 50ML SYRINGE IV STA (20:52)
[2024-10-30 21:04] LABS: ETHYL ALCOHOL (ETHANOL) 0.006 % (0.000-0.010)
[2024-10-30 21:06] LABS: SALICYLATE LEVEL < 3.0 MG/DL (<30)
[2024-10-30 21:09] LABS: ALBUMIN 3.9 G/DL (3.2-5.2); ALKALINE PHOSPHATASE 138 U/L (35-104); ALT/SGPT 36 U/L (7.0-40); AST/SGOT 30 U/L (<34); BILIRUBIN,DIRECT < 0.1 MG/DL (<0.4); BILIRUBIN,TOTAL 0.2 MG/DL (0.3-1.2); BLOOD UREA NITROGEN 19 MG/DL (9-23); CARBON DIOXIDE LEVEL 26 MMOL/L (20-31); CHLORIDE LEVEL 107 MMOL/L (98-107); CPK CREATINE PHOSPHOKINASE 476 U/L (34-145); GLOMERULAR FILTRATION RATE > 90.0 (>60); GLUCOSE, FASTING 62 MG/DL (60-100); POTASSIUM SERUM 3.9 MMOL/L (3.5-5.1); SODIUM LEVEL 142 MMOL/L (136-145); THYROID STIMULATING HORMONE 0.744 uIU/ML (0.55-4.78); TOTAL PROTEIN 7.3 G/DL (5.7-8.2)
[2024-10-30] MEDS: NS (Normal Saline) 0.9% 1,000 ML IV ONE (21:20)
[2024-10-30] MEDS ORDERED: HOME MED LIST COMPLETE! XX SCH (21:30)
[2024-10-30] MEDS: ONDANSETRON 4MG 2ML VIAL IV ONE (21:31)
[2024-10-30] MEDS ORDERED: MAALOX 30 ML SUSP *UDC PO PRN (21:40)
[2024-10-30] MEDS ORDERED: MOM 30ML SUSPENSION UDC PO PRN (21:40)
[2024-10-30 21:55] LABS: HCG, SERUM QUALITATIVE NEGATIVE (NEGATIVE)
[2024-10-30 23:12] VITALS: BP 142/93; TEMP 97.9; O2SAT 98
[2024-10-31 04:00] VITALS: BP 125/60; TEMP 97.5; O2SAT 96
[2024-10-31] MEDS: ACETAMINOPHEN 325 MG TAB PO PRN (05:35)
[2024-10-31] MEDS: HEPARIN SOD (PORCINE) 5000UNITS/ML 1ML VIAL/SYRINGE SC SCH (06:00)
[2024-10-31] MEDS: DOCUSATE SODIUM 100MG CAPSULE PO SCH (09:00)
[2024-10-31 09:33] LABS: HEMATOCRIT 38.3 % (36.0-47.0); HEMOGLOBIN 12.2 g/dl (12.0-15.5); MEAN CORPUSCULAR HEMOGLOBIN 29.6 pg (27.0-33.0); MEAN CORPUSCULAR HGB CONC 31.9 g/dl (32.0-36.5); PLATELET COUNT, AUTOMATED 216 10^3/uL (150-450); RED BLOOD COUNT 4.12 10^6/uL (4.00-5.40); WHITE BLOOD COUNT 6.7 10^3/uL (4.0-10.0)
[2024-10-31 10:11] LABS: ALBUMIN 3.6 G/DL (3.2-5.2); ALKALINE PHOSPHATASE 128 U/L (35-104); ALT/SGPT 32 U/L (7.0-40); AST/SGOT 18 U/L (<34); BILIRUBIN,TOTAL 0.4 MG/DL (0.3-1.2); BLOOD UREA NITROGEN 16 MG/DL (9-23); CALCIUM LEVEL 9.2 MG/DL (8.5-10.1); CARBON DIOXIDE LEVEL 27 MMOL/L (20-31); CHLORIDE LEVEL 108 MMOL/L (98-107); CREATININE FOR GFR 0.59 MG/DL (0.55-1.30); GLOMERULAR FILTRATION RATE > 90.0 (>60); GLUCOSE, FASTING 86 MG/DL (60-100); MAGNESIUM LEVEL 2.1 MG/DL (1.8-2.4); POTASSIUM SERUM 4.5 MMOL/L (3.5-5.1); SODIUM LEVEL 143 MMOL/L (136-145); TOTAL PROTEIN 6.7 G/DL (5.7-8.2)
[2024-10-31 12:00] VITALS: BP 139/75; TEMP 98.4; O2SAT 99
== END 2024-10-31 23:29 | DRG 812 ==
LOC: M ED 19:46 → EDBD 19:46 → M ED INP 21:36 → M MSPAV 23:12
PROVIDERS: ADMIT Student in an Organized Health Care Education/Training Program; ATTEND Internal Medicine
DX: T43.592A Poisoning by other antipsychotics and neuroleptics, intentional self-harm, initial encounter (principal); Z68.42 Body mass index [BMI] 45.0-49.9, adult; F20.9 Schizophrenia, unspecified; T43.222A Poisoning by selective serotonin reuptake inhibitors, intentional self-harm, initial encounter; T14.91XA Suicide attempt, initial encounter; F41.9 Anxiety disorder, unspecified; E66.813 Obesity, class 3; F17.290 Nicotine dependence, other tobacco product, uncomplicated; F60.3 Borderline personality disorder; F43.10 Post-traumatic stress disorder, unspecified; Z79.899 Other long term (current) drug therapy; Z88.0 Allergy status to penicillin; Z76.5 Malingerer [conscious simulation]

== ENCOUNTER 2024-10-31 19:42 | Inpatient (IN) | payer MEDICAID, SELFPAY ==
[~2024-10-31] VITALS: Ht 167.6 cm; Wt 137.5 kg
[~2024-10-31 19:42] MED LIST changes: +TOPI-256 PO; +TOPI-257 PO; -TOPI100T9 PO; -TOPI25TA10 PO
[2024-10-31] MEDS ORDERED: diphenhydrAMINE 25MG CAP PO PRN (20:40)
[2024-10-31] MEDS ORDERED: traZODone 50 MG TAB PO PRN (20:40)
[2024-11-01] MEDS ORDERED: MOM 30ML SUSPENSION UDC PO PRN (00:05)
[2024-11-01 00:06] VITALS: BP 135/70; TEMP 97.4; O2SAT 99
[2024-11-01] MEDS: OLANZapine ORAL DISINTEGRATING TAB 5MG PO PRN (00:28)
[2024-11-01] MEDS: IBUPROFEN 400MG TAB PO PRN (00:28)
[2024-11-01] MEDS: NICOTINE 21MG/24HR 1 EA TRANSDERMAL TD PRN (00:51)
[2024-11-01 01:35] VITALS: BP 136/61; TEMP 97.6; O2SAT 99
[2024-11-01] MEDS: ACETAMINOPHEN 325 MG TAB PO PRN (07:57)
[2024-11-01] MEDS ORDERED: NICOTINE 21MG/24HR 1 EA TRANSDERMAL TD SCH (09:00)
[2024-11-01] MEDS ORDERED: HOME MED LIST COMPLETE! XX SCH (09:55)
[2024-11-01] MEDS: NICOTINE POLACRILEX 2 MG GUM PO PRN (10:24)
[2024-11-01] MEDS: ARIPiprazole MONOHYDRATE 400 MG INJ (ABILIFY)(FREE PSY INPT ONLY) IM ONE (12:50)
[2024-11-01 15:47] VITALS: BP 140/84; TEMP 97; O2SAT 100
[2024-11-01] MEDS: MAALOX 30 ML SUSP *UDC PO PRN (23:05)
[2024-11-02 06:36] VITALS: BP 140/88; TEMP 97.2; O2SAT 99
[2024-11-02] MEDS: PARoxetine 10MG TABLET PO SCH (09:32)
[2024-11-02] MEDS: NICOTINE POLACRILEX 2 MG GUM PO PRN (10:32)
[2024-11-03 06:53] VITALS: BP 130/98; TEMP 97.7; O2SAT 100
[2024-11-03 10:28] VITALS: BP 122/70; TEMP 97.6; O2SAT 97
== END 2024-11-03 11:29 | disposition home or self-care (01) | DRG 752 ==
LOC: M PSY 11-01 00:06
PROVIDERS: ADMIT Student in an Organized Health Care Education/Training Program; ATTEND Student in an Organized Health Care Education/Training Program
DX: F60.3 Borderline personality disorder (principal); R07.89 Other chest pain; R45.851 Suicidal ideations; Z88.0 Allergy status to penicillin; F17.200 Nicotine dependence, unspecified, uncomplicated; Z91.51 Personal history of suicidal behavior; Z76.5 Malingerer [conscious simulation]

== ENCOUNTER 2024-11-03 22:47 | Emergency (ER) | payer MEDICAID ==
[~2024-11-03] VITALS: Ht 167.6 cm; Wt 139.3 kg
[2024-11-03] MEDS: NS (Normal Saline) 0.9% 1,000 ML IV ONE (23:25)
[2024-11-04 00:29] LABS: BASO % 0.3 % (0.0-1.0); EOS # 0.1 10^3/uL (0.0-0.5); EOS % 1.5 % (0.0-3.0); HEMATOCRIT 37.5 % (36.0-47.0); HEMOGLOBIN 12.4 g/dl (12.0-15.5); LYMPH # 2.1 10^3/uL (1.5-5.0); LYMPH % 24.2 % (24.0-44.0); MEAN CORPUSCULAR HEMOGLOBIN 30.2 pg (27.0-33.0); MEAN CORPUSCULAR HGB CONC 33.1 g/dl (32.0-36.5); MEAN CORPUSCULAR VOLUME 91.2 fl (80.0-96.0); MONO # 0.6 10^3/uL (0.0-0.8); NEUTROPHILS # 5.8 10^3/uL (1.5-8.5); NEUTROPHILS % 66.7 % (36.0-66.0); PLATELET COUNT, AUTOMATED 215 10^3/uL (150-450); RED BLOOD COUNT 4.11 10^6/uL (4.00-5.40); WHITE BLOOD COUNT 8.7 10^3/uL (4.0-10.0)
[2024-11-04 00:34] LABS: AMPHETAMINES LEVEL URINE NEGATIVE (NEGATIVE); BARBITURATES URINE NEGATIVE (NEGATIVE); BENZODIAZEPINES URINE NEGATIVE (NEGATIVE); CANNABINOIDS URINE NEGATIVE (NEGATIVE); COCAINE METABOLITE URINE NEGATIVE (NEGATIVE); METHADONE URINE NEGATIVE (NEGATIVE); OPIATES URINE NEGATIVE (NEGATIVE); PHENCYCLIDINE URINE NEGATIVE (NEGATIVE)
[2024-11-04 00:36] LABS: ETHYL ALCOHOL (ETHANOL) < 0.003 % (0.000-0.010)
[2024-11-04 00:37] LABS: SALICYLATE LEVEL < 3.0 MG/DL (<30)
[2024-11-04 00:38] LABS: ALBUMIN 3.5 G/DL (3.2-5.2); ALKALINE PHOSPHATASE 125 U/L (35-104); ALT/SGPT 31 U/L (7.0-40); AST/SGOT 26 U/L (<34); BILIRUBIN,DIRECT < 0.1 MG/DL (<0.4); BILIRUBIN,TOTAL 0.2 MG/DL (0.3-1.2); BLOOD UREA NITROGEN 23 MG/DL (9-23); CARBON DIOXIDE LEVEL 27 MMOL/L (20-31); CHLORIDE LEVEL 107 MMOL/L (98-107); CPK CREATINE PHOSPHOKINASE 692 U/L (34-145); CREATININE FOR GFR 0.52 MG/DL (0.55-1.30); GLOMERULAR FILTRATION RATE > 90.0 (>60); GLUCOSE, FASTING 95 MG/DL (60-100); POTASSIUM SERUM 4.4 MMOL/L (3.5-5.1); SODIUM LEVEL 143 MMOL/L (136-145); TOTAL PROTEIN 6.6 G/DL (5.7-8.2)
[2024-11-04 00:40] LABS: THYROID STIMULATING HORMONE 1.762 uIU/ML (0.55-4.78)
[2024-11-04 00:43] LABS: HCG, SERUM QUALITATIVE NEGATIVE (NEGATIVE)
[2024-11-04] MEDS: ACETAMINOPHEN 500 MG TAB PO ONE (04:33)
[2024-11-04] MEDS: ONDANSETRON 4MG ORAL DISINTEGRATING TAB PO ONE (05:04)
[2024-11-04 07:32] VITALS: BP 130/89; TEMP 97.8; O2SAT 97
== END 2024-11-04 10:08 | disposition home or self-care (01) ==
LOC: M ED 22:47
DX: F60.3 Borderline personality disorder (principal); F31.9 Bipolar disorder, unspecified; Z88.0 Allergy status to penicillin

== ENCOUNTER 2024-11-05 21:52 | Emergency (ER) | payer MEDICAID ==
[~2024-11-05] VITALS: Ht 167.6 cm; Wt 127.3 kg
[2024-11-05 22:37] VITALS: BP 134/73; TEMP 98.5; O2SAT 99
[2024-11-06] MEDS ORDERED: HOME MED LIST COMPLETE! XX SCH (00:05)
[2024-11-06 00:13] LABS: HEMOGLOBIN 12.3 g/dl (12.0-15.5); MEAN CORPUSCULAR HEMOGLOBIN 29.2 pg (27.0-33.0); MEAN CORPUSCULAR HGB CONC 31.5 g/dl (32.0-36.5); MEAN CORPUSCULAR VOLUME 92.6 fl (80.0-96.0); PLATELET COUNT, AUTOMATED 251 10^3/uL (150-450); RED BLOOD COUNT 4.21 10^6/uL (4.00-5.40); WHITE BLOOD COUNT 9.1 10^3/uL (4.0-10.0)
[2024-11-06 00:24] LABS: AMPHETAMINES LEVEL URINE NEGATIVE (NEGATIVE); BARBITURATES URINE NEGATIVE (NEGATIVE); BENZODIAZEPINES URINE NEGATIVE (NEGATIVE); COCAINE METABOLITE URINE NEGATIVE (NEGATIVE); METHADONE URINE NEGATIVE (NEGATIVE); OPIATES URINE NEGATIVE (NEGATIVE)
[2024-11-06 00:25] LABS: CANNABINOIDS URINE NEGATIVE (NEGATIVE); PHENCYCLIDINE URINE NEGATIVE (NEGATIVE)
[2024-11-06 00:26] LABS: ETHYL ALCOHOL (ETHANOL) 0.004 % (0.000-0.010)
[2024-11-06 00:28] LABS: SALICYLATE LEVEL < 3.0 MG/DL (<30)
[2024-11-06 00:30] LABS: THYROID STIMULATING HORMONE 2.174 uIU/ML (0.55-4.78)
[2024-11-06 00:31] LABS: ALBUMIN 3.9 G/DL (3.2-5.2); ALKALINE PHOSPHATASE 138 U/L (35-104); ALT/SGPT 37 U/L (7.0-40); AST/SGOT 26 U/L (<34); BILIRUBIN,DIRECT 0.1 MG/DL (<0.4); BILIRUBIN,TOTAL 0.3 MG/DL (0.3-1.2); BLOOD UREA NITROGEN 14 MG/DL (9-23); CALCIUM LEVEL 9.6 MG/DL (8.5-10.1); CARBON DIOXIDE LEVEL 27 MMOL/L (20-31); CHLORIDE LEVEL 108 MMOL/L (98-107); CREATININE FOR GFR 0.54 MG/DL (0.55-1.30); GLOMERULAR FILTRATION RATE > 90.0 (>60); GLUCOSE, FASTING 94 MG/DL (60-100); POTASSIUM SERUM 4.6 MMOL/L (3.5-5.1); SODIUM LEVEL 142 MMOL/L (136-145); TOTAL PROTEIN 7.1 G/DL (5.7-8.2)
[2024-11-06 00:37] LABS: HCG, SERUM QUALITATIVE NEGATIVE (NEGATIVE)
== END 2024-11-06 13:05 | disposition home or self-care (01) ==
LOC: M ED 21:52
DX: F60.3 Borderline personality disorder (principal); Z76.5 Malingerer [conscious simulation]; Z88.0 Allergy status to penicillin

== ENCOUNTER 2024-11-06 23:38 | Emergency (ER) | payer MEDICAID ==
[~2024-11-06] VITALS: Ht 167.6 cm; Wt 127.0 kg
[2024-11-07 00:12] LABS: HEMOGLOBIN 12.9 g/dl (12.0-15.5); MEAN CORPUSCULAR HEMOGLOBIN 29.5 pg (27.0-33.0); MEAN CORPUSCULAR HGB CONC 32.3 g/dl (32.0-36.5); MEAN CORPUSCULAR VOLUME 91.5 fl (80.0-96.0); PLATELET COUNT, AUTOMATED 255 10^3/uL (150-450); RED BLOOD COUNT 4.37 10^6/uL (4.00-5.40); WHITE BLOOD COUNT 10.8 10^3/uL (4.0-10.0)
[2024-11-07 00:26] LABS: AMPHETAMINES LEVEL URINE NEGATIVE (NEGATIVE); BARBITURATES URINE NEGATIVE (NEGATIVE); BENZODIAZEPINES URINE NEGATIVE (NEGATIVE); CANNABINOIDS URINE NEGATIVE (NEGATIVE); COCAINE METABOLITE URINE NEGATIVE (NEGATIVE); METHADONE URINE NEGATIVE (NEGATIVE); OPIATES URINE NEGATIVE (NEGATIVE); PHENCYCLIDINE URINE NEGATIVE (NEGATIVE)
[2024-11-07 00:28] LABS: ETHYL ALCOHOL (ETHANOL) < 0.003 % (0.000-0.010)
[2024-11-07 00:30] LABS: HCG, SERUM QUALITATIVE NEGATIVE (NEGATIVE); SALICYLATE LEVEL < 3.0 MG/DL (<30)
[2024-11-07 00:32] LABS: THYROID STIMULATING HORMONE 1.833 uIU/ML (0.55-4.78)
[2024-11-07 00:37] LABS: ALBUMIN 3.9 G/DL (3.2-5.2); ALKALINE PHOSPHATASE 145 U/L (35-104); ALT/SGPT 38 U/L (7.0-40); AST/SGOT 21 U/L (<34); BILIRUBIN,DIRECT < 0.1 MG/DL (<0.4); BILIRUBIN,TOTAL 0.3 MG/DL (0.3-1.2); BLOOD UREA NITROGEN 23 MG/DL (9-23); CALCIUM LEVEL 9.4 MG/DL (8.5-10.1); CARBON DIOXIDE LEVEL 28 MMOL/L (20-31); CHLORIDE LEVEL 107 MMOL/L (98-107); CREATININE FOR GFR 0.55 MG/DL (0.55-1.30); GLOMERULAR FILTRATION RATE > 90.0 (>60); GLUCOSE, FASTING 95 MG/DL (60-100); POTASSIUM SERUM 4.3 MMOL/L (3.5-5.1); SODIUM LEVEL 143 MMOL/L (136-145); TOTAL PROTEIN 7.3 G/DL (5.7-8.2)
[2024-11-07] MEDS: OLANZapine ORAL DISINTEGRATING TAB 5MG PO ONE (01:13)
[2024-11-07] MEDS ORDERED: HOME MED LIST COMPLETE! XX SCH (01:40)
[2024-11-07] MEDS: ONDANSETRON 4MG ORAL DISINTEGRATING TAB PO ONE (02:44)
[2024-11-07] MEDS: diphenhydrAMINE 50MG/ML VIAL IM ONE (05:21)
[2024-11-07] MEDS: LORazepam 2 MG/ML 1ML VIAL IM ONE (05:21)
[2024-11-07] MEDS: HALOPERIDOL LACTATE 5MG/ML VIAL IM ONE (05:21)
[2024-11-07 06:51] VITALS: BP 124/75; TEMP 98.1; O2SAT 97
== END 2024-11-07 11:05 | disposition home or self-care (01) ==
LOC: M ED 23:38
DX: F60.3 Borderline personality disorder (principal); F31.9 Bipolar disorder, unspecified; Z76.5 Malingerer [conscious simulation]; Z88.0 Allergy status to penicillin
CPT/HCPCS: 80048; 80076; 80143; 80307; 82077; 84443; 84703; 85027; 96372; 99285; J1200; J1630; J2060

== ENCOUNTER 2024-11-07 17:19 | Emergency (ER) | payer MEDICAID ==
[~2024-11-07] VITALS: Ht 167.6 cm; Wt 127.3 kg
[2024-11-07 17:24] VITALS: BP 121/87; TEMP 98.1; O2SAT 98
[2024-11-07] MEDS ORDERED: HOME MED LIST COMPLETE! XX SCH (18:05)
[2024-11-07 18:25] LABS: AMPHETAMINES LEVEL URINE NEGATIVE (NEGATIVE); BARBITURATES URINE NEGATIVE (NEGATIVE); BENZODIAZEPINES URINE NEGATIVE (NEGATIVE); CANNABINOIDS URINE NEGATIVE (NEGATIVE); COCAINE METABOLITE URINE NEGATIVE (NEGATIVE); METHADONE URINE NEGATIVE (NEGATIVE); OPIATES URINE NEGATIVE (NEGATIVE); PHENCYCLIDINE URINE NEGATIVE (NEGATIVE)
== END 2024-11-07 19:35 | disposition home or self-care (01) ==
LOC: M ED 17:19
DX: F43.0 Acute stress reaction (principal); Z76.5 Malingerer [conscious simulation]; Z88.0 Allergy status to penicillin

== ENCOUNTER 2024-11-09 02:56 | Emergency (ER) | payer MEDICAID ==
[~2024-11-09] VITALS: Ht 167.6 cm; Wt 127.3 kg
[2024-11-09 03:10] VITALS: TEMP 97.9
[2024-11-09 03:17] LABS: HEMOGLOBIN 12.8 g/dl (12.0-15.5); MEAN CORPUSCULAR HEMOGLOBIN 29.5 pg (27.0-33.0); MEAN CORPUSCULAR VOLUME 92.2 fl (80.0-96.0); PLATELET COUNT, AUTOMATED 241 10^3/uL (150-450); RED BLOOD COUNT 4.34 10^6/uL (4.00-5.40); WHITE BLOOD COUNT 7.8 10^3/uL (4.0-10.0)
[2024-11-09 03:39] LABS: AMPHETAMINES LEVEL URINE NEGATIVE (NEGATIVE); BARBITURATES URINE NEGATIVE (NEGATIVE); BENZODIAZEPINES URINE NEGATIVE (NEGATIVE); CANNABINOIDS URINE NEGATIVE (NEGATIVE); COCAINE METABOLITE URINE NEGATIVE (NEGATIVE); METHADONE URINE NEGATIVE (NEGATIVE); OPIATES URINE NEGATIVE (NEGATIVE); PHENCYCLIDINE URINE NEGATIVE (NEGATIVE)
[2024-11-09] MEDS: OMEPRAZOLE 20MG CAP PO ONE (03:55)
[2024-11-09] MEDS: ONDANSETRON 4MG ORAL DISINTEGRATING TAB PO ONE (03:55)
[2024-11-09 04:03] LABS: VENOUS BASE EXCESS -3.1 (-2.0-2.0); VENOUS HCO3 23.3 MMOL/L (23.0-27.0); VENOUS O2 SATURATION 69.4 % (60.0-80.0); VENOUS PARTIAL PRESSURE CO2 46.6 mmHg (38.0-50.0); VENOUS PH 7.316 UNITS (7.330-7.430); VENOUS STANDARD HCO3 21.3 MMOL/L; VENOUS TOTAL CO2 24.7 MMOL/L (24.0-28.0)
[2024-11-09] MEDS ORDERED: HOME MED LIST COMPLETE! XX SCH (04:25)
[2024-11-09 04:31] LABS: ETHYL ALCOHOL (ETHANOL) < 0.003 % (0.000-0.010)
[2024-11-09 04:33] LABS: SALICYLATE LEVEL < 3.0 MG/DL (<30)
[2024-11-09 04:42] LABS: ALBUMIN 2.5 G/DL (3.2-5.2); ALKALINE PHOSPHATASE 85 U/L (35-104); ALT/SGPT 21 U/L (7.0-40); AST/SGOT 14 U/L (<34); BILIRUBIN,DIRECT < 0.1 MG/DL (<0.4); BILIRUBIN,TOTAL 0.2 MG/DL (0.3-1.2); BLOOD UREA NITROGEN 15 MG/DL (9-23); CALCIUM LEVEL 5.6 MG/DL (8.5-10.1); CARBON DIOXIDE LEVEL 21 MMOL/L (20-31); CHLORIDE LEVEL 116 MMOL/L (98-107); CREATININE FOR GFR 0.39 MG/DL (0.55-1.30); GLOMERULAR FILTRATION RATE > 90.0 (>60); GLUCOSE, FASTING 74 MG/DL (60-100); SODIUM LEVEL 146 MMOL/L (136-145); TOTAL PROTEIN 4.2 G/DL (5.7-8.2)
[2024-11-09 04:45] LABS: HCG, SERUM QUALITATIVE NEGATIVE (NEGATIVE)
[2024-11-09 07:17] VITALS: BP 123/77; O2SAT 97
== END 2024-11-09 09:38 | disposition home or self-care (01) ==
LOC: M ED 02:56
DX: R45.851 Suicidal ideations (principal); T39.392A Poisoning by other nonsteroidal anti-inflammatory drugs [NSAID], intentional self-harm, initial encounter; F60.3 Borderline personality disorder; F41.9 Anxiety disorder, unspecified; F32.A Depression, unspecified; F20.9 Schizophrenia, unspecified; Z88.0 Allergy status to penicillin

== ENCOUNTER 2024-11-11 21:51 | Emergency (ER) | payer MEDICAID ==
[~2024-11-11] VITALS: Ht 167.6 cm; Wt 127.3 kg
[2024-11-11] MEDS: LORazepam 2 MG/ML 1ML VIAL IM ONE (22:42)
[2024-11-11] MEDS: diphenhydrAMINE 50MG/ML VIAL IM ONE (22:42)
[2024-11-11] MEDS: HALOPERIDOL LACTATE 5MG/ML VIAL IM ONE (22:42)
[2024-11-11 22:55] LABS: HEMATOCRIT 38.3 % (36.0-47.0); HEMOGLOBIN 12.5 g/dl (12.0-15.5); MEAN CORPUSCULAR HGB CONC 32.6 g/dl (32.0-36.5); MEAN CORPUSCULAR VOLUME 91.8 fl (80.0-96.0); PLATELET COUNT, AUTOMATED 261 10^3/uL (150-450); RED BLOOD COUNT 4.17 10^6/uL (4.00-5.40); WHITE BLOOD COUNT 11.7 10^3/uL (4.0-10.0)
[2024-11-11 23:20] LABS: ETHYL ALCOHOL (ETHANOL) < 0.003 % (0.000-0.010)
[2024-11-11 23:22] LABS: SALICYLATE LEVEL < 3.0 MG/DL (<30)
[2024-11-11 23:27] LABS: ALBUMIN 3.9 G/DL (3.2-5.2); ALKALINE PHOSPHATASE 139 U/L (35-104); ALT/SGPT 25 U/L (7.0-40); AST/SGOT 19 U/L (<34); BILIRUBIN,DIRECT < 0.1 MG/DL (<0.4); BILIRUBIN,TOTAL 0.2 MG/DL (0.3-1.2); BLOOD UREA NITROGEN 25 MG/DL (9-23); CALCIUM LEVEL 8.9 MG/DL (8.5-10.1); CARBON DIOXIDE LEVEL 24 MMOL/L (20-31); CHLORIDE LEVEL 106 MMOL/L (98-107); CREATININE FOR GFR 0.61 MG/DL (0.55-1.30); GLOMERULAR FILTRATION RATE > 90.0 (>60); GLUCOSE, FASTING 111 MG/DL (60-100); HCG, SERUM QUALITATIVE NEGATIVE (NEGATIVE); SODIUM LEVEL 141 MMOL/L (136-145)
[2024-11-12 00:06] LABS: AMPHETAMINES LEVEL URINE NEGATIVE (NEGATIVE); BARBITURATES URINE NEGATIVE (NEGATIVE); BENZODIAZEPINES URINE NEGATIVE (NEGATIVE); CANNABINOIDS URINE NEGATIVE (NEGATIVE); COCAINE METABOLITE URINE NEGATIVE (NEGATIVE); METHADONE URINE NEGATIVE (NEGATIVE); OPIATES URINE NEGATIVE (NEGATIVE); PHENCYCLIDINE URINE NEGATIVE (NEGATIVE)
[2024-11-12] MEDS ORDERED: HOME MED LIST COMPLETE! XX SCH (00:20)
[2024-11-12 10:04] VITALS: BP 156/74; TEMP 97.8; O2SAT 99
== END 2024-11-12 11:36 | disposition home or self-care (01) ==
LOC: M ED 21:51
DX: Z76.5 Malingerer [conscious simulation] (principal); F60.3 Borderline personality disorder; F31.9 Bipolar disorder, unspecified; Z88.0 Allergy status to penicillin
CPT/HCPCS: 80048; 80076; 80143; 80307; 82077; 84443; 84703; 85027; 96372; 99285; J1200; J1630; J2060

== ENCOUNTER 2024-12-22 22:40 | Emergency (ER) | payer OTHER ==
[~2024-12-22] VITALS: Ht 167.6 cm; Wt 126.0 kg
[~2024-12-22 22:40] MED LIST changes: -ABIL400I; -ABIL400I IM; +ADDE15CA3 PO; +ARIP400S; +ARIP400S IM; +DEPA250T PO; -DEPA250T2 PO; +IBUP-1114 PO; +LAMI25TA PO; +LAMO-18 PO; -LAMO25TA4 PO; -PRAV20TA2 PO; +PRAV20TA78 PO
[2024-12-22 23:01] VITALS: TEMP 97.8; O2SAT 99
[2024-12-23 00:50] VITALS: BP 123/59
== END 2024-12-23 09:30 | disposition home or self-care (01) ==
LOC: M ED 22:40
DX: Z76.5 Malingerer [conscious simulation] (principal); F31.9 Bipolar disorder, unspecified; Z88.0 Allergy status to penicillin; Z79.899 Other long term (current) drug therapy

== ENCOUNTER 2025-01-09 19:22 | Emergency (ER) | payer OTHER ==
[~2025-01-09] VITALS: Ht 167.6 cm; Wt 149.0 kg
[2025-01-09 19:33] VITALS: TEMP 97.3
[2025-01-09 20:05] LABS: BASO # 0.0 10^3/uL (0.0-0.2); BASO % 0.3 % (0.0-1.0); EOS # 0.1 10^3/uL (0.0-0.5); EOS % 0.6 % (0.0-3.0); LYMPH # 1.7 10^3/uL (1.5-5.0); LYMPH % 20.8 % (24.0-44.0); MONO # 0.5 10^3/uL (0.0-0.8); MONO % 5.8 % (2.0-8.0); NEUTROPHILS # 5.8 10^3/uL (1.5-8.5); NEUTROPHILS % 72.1 % (36.0-66.0); PLATELET COUNT, AUTOMATED 274 10^3/uL (150-450)
[2025-01-09 20:19] LABS: ETHYL ALCOHOL (ETHANOL) 0.004 % (0.000-0.010)
[2025-01-09 20:21] LABS: ALT/SGPT 28 U/L (7.0-40); AST/SGOT 19 U/L (<34); CALCIUM LEVEL 8.7 MG/DL (8.5-10.1); CARBON DIOXIDE LEVEL 26 MMOL/L (20-31); CHLORIDE LEVEL 106 MMOL/L (98-107); CPK CREATINE PHOSPHOKINASE 181 U/L (34-145); CREATININE FOR GFR 0.52 MG/DL (0.55-1.30); GLOMERULAR FILTRATION RATE > 90.0 (>60); POTASSIUM SERUM 3.7 MMOL/L (3.5-5.1); SALICYLATE LEVEL < 3.0 MG/DL (<30); SODIUM LEVEL 144 MMOL/L (136-145)
[2025-01-09 21:10] LABS: AMPHETAMINES LEVEL URINE NEGATIVE (NEGATIVE); BARBITURATES URINE NEGATIVE (NEGATIVE); BENZODIAZEPINES URINE NEGATIVE (NEGATIVE); CANNABINOIDS URINE NEGATIVE (NEGATIVE); COCAINE METABOLITE URINE NEGATIVE (NEGATIVE); METHADONE URINE NEGATIVE (NEGATIVE); OPIATES URINE NEGATIVE (NEGATIVE); PHENCYCLIDINE URINE NEGATIVE (NEGATIVE)
[2025-01-10 00:45] VITALS: BP 151/84
[2025-01-10 01:01] VITALS: O2SAT 98
[2025-01-10] MEDS: IBUPROFEN 600 MG TAB PO ONE (02:09)
[2025-01-10] MEDS: ONDANSETRON 4MG ORAL DISINTEGRATING TAB PO ONE (06:14)
== END 2025-01-10 08:53 | disposition home or self-care (01) ==
LOC: M ED 19:22
DX: Z76.5 Malingerer [conscious simulation] (principal); F31.9 Bipolar disorder, unspecified; F43.10 Post-traumatic stress disorder, unspecified; Z88.0 Allergy status to penicillin; Z79.899 Other long term (current) drug therapy
CPT/HCPCS: 80048; 80076; 80143; 80307; 82077; 82550; 84443; 85025; 93005; 93041; 94760; 96374; 99285; J3360

== ENCOUNTER 2025-01-10 17:12 | Emergency (ER) | payer OTHER ==
[2025-01-10 17:26] VITALS: BP 140/70; TEMP 98.4; O2SAT 96
[2025-01-10 20:34] LABS: PLATELET COUNT, AUTOMATED 303 10^3/uL (150-450)
[2025-01-10] MEDS: FLUoxetine 20 MG CAP PO ONE (20:55)
[2025-01-10 21:20] LABS: HCG, SERUM QUALITATIVE NEGATIVE (NEGATIVE)
[2025-01-10 21:26] LABS: ETHYL ALCOHOL (ETHANOL) 0.006 % (0.000-0.010)
[2025-01-10 21:28] LABS: SALICYLATE LEVEL < 3.0 MG/DL (<30)
[2025-01-10 21:38] LABS: ALT/SGPT 28 U/L (7.0-40); AST/SGOT 20 U/L (<34); CALCIUM LEVEL 9.4 MG/DL (8.5-10.1); CARBON DIOXIDE LEVEL 25 MMOL/L (20-31); CHLORIDE LEVEL 104 MMOL/L (98-107); CREATININE FOR GFR 0.54 MG/DL (0.55-1.30); GLOMERULAR FILTRATION RATE > 90.0 (>60); POTASSIUM SERUM 4.0 MMOL/L (3.5-5.1); SODIUM LEVEL 141 MMOL/L (136-145)
[2025-01-10] MEDS ORDERED: ONDANSETRON 4MG ORAL DISINTEGRATING TAB PO PRN (23:15)
[2025-01-10 23:19] LABS: AMPHETAMINES LEVEL URINE NEGATIVE (NEGATIVE); BARBITURATES URINE NEGATIVE (NEGATIVE); BENZODIAZEPINES URINE NEGATIVE (NEGATIVE); CANNABINOIDS URINE NEGATIVE (NEGATIVE); COCAINE METABOLITE URINE NEGATIVE (NEGATIVE); METHADONE URINE NEGATIVE (NEGATIVE); OPIATES URINE NEGATIVE (NEGATIVE); PHENCYCLIDINE URINE NEGATIVE (NEGATIVE)
== END 2025-01-11 06:56 | disposition home or self-care (01) ==
LOC: M ED 17:12
DX: Z76.5 Malingerer [conscious simulation] (principal); Z88.0 Allergy status to penicillin; Z79.899 Other long term (current) drug therapy

== ENCOUNTER 2025-01-22 21:04 | Emergency (ER) | payer OTHER ==
[~2025-01-22] VITALS: Ht 170.2 cm; Wt 175.0 kg
[2025-01-22 21:23] VITALS: BP 151/79; TEMP 97; O2SAT 98
[2025-01-23] MEDS ORDERED: VRAY1.5C PO (12:51)
[2025-01-23] MEDS ORDERED: FLUO-365 PO (12:51)
[2025-01-23] MEDS ORDERED: HOME MED LIST COMPLETE! XX SCH (12:55)
== END 2025-01-23 13:41 | disposition home or self-care (01) ==
LOC: M ED 21:04
DX: Z76.5 Malingerer [conscious simulation] (principal); F31.9 Bipolar disorder, unspecified; F17.290 Nicotine dependence, other tobacco product, uncomplicated; F10.10 Alcohol abuse, uncomplicated; Z88.0 Allergy status to penicillin; Z79.899 Other long term (current) drug therapy

== ENCOUNTER 2025-01-25 00:50 | Emergency (ER) | payer OTHER ==
[~2025-01-25] VITALS: Ht 165.1 cm; Wt 175.0 kg
[~2025-01-25 00:50] MED LIST changes: +FLUO-365 PO; +VRAY1.5C PO
[2025-01-25] MEDS: diphenhydrAMINE 50 MG/ML VIAL IM ONE (01:15)
[2025-01-25] MEDS: HALOPERIDOL LACTATE 5 MG/ML VIAL IM ONE (01:15)
[2025-01-25 01:17] VITALS: BP 161/69; TEMP 98.5; O2SAT 97
[2025-01-25 01:33] LABS: PLATELET COUNT, AUTOMATED 237 10^3/uL (150-450)
[2025-01-25 01:58] LABS: ETHYL ALCOHOL (ETHANOL) < 0.003 % (0.000-0.010)
[2025-01-25 02:00] LABS: ALT/SGPT 39 U/L (7.0-40); AST/SGOT 39 U/L (<34); CALCIUM LEVEL 8.9 MG/DL (8.5-10.1); CARBON DIOXIDE LEVEL 21 MMOL/L (20-31); CHLORIDE LEVEL 104 MMOL/L (98-107); CREATININE FOR GFR 0.66 MG/DL (0.55-1.30); GLOMERULAR FILTRATION RATE > 90.0 (>60); POTASSIUM SERUM 3.4 MMOL/L (3.5-5.1); SALICYLATE LEVEL < 3.0 MG/DL (<30); SODIUM LEVEL 142 MMOL/L (136-145)
[2025-01-25 03:03] LABS: AMPHETAMINES LEVEL URINE NEGATIVE (NEGATIVE)
[2025-01-25 03:04] LABS: BARBITURATES URINE NEGATIVE (NEGATIVE); BENZODIAZEPINES URINE NEGATIVE (NEGATIVE); CANNABINOIDS URINE NEGATIVE (NEGATIVE); COCAINE METABOLITE URINE NEGATIVE (NEGATIVE); METHADONE URINE NEGATIVE (NEGATIVE); OPIATES URINE NEGATIVE (NEGATIVE); PHENCYCLIDINE URINE NEGATIVE (NEGATIVE)
[2025-01-25 03:38] LABS: HCG, SERUM QUALITATIVE NEGATIVE (NEGATIVE)
[2025-01-26] MEDS ORDERED: LAMO-18 PO (01:54)
[2025-01-26] MEDS ORDERED: VRAY1.5C PO (01:54)
[2025-01-26] MEDS ORDERED: ADDE15CA3 PO (01:54)
[2025-01-26] MEDS ORDERED: FLUO-96 PO (01:54)
== END 2025-01-25 13:58 | disposition home or self-care (01) ==
LOC: M ED 00:50
DX: Z76.5 Malingerer [conscious simulation] (principal); F31.9 Bipolar disorder, unspecified; F17.210 Nicotine dependence, cigarettes, uncomplicated; Z88.0 Allergy status to penicillin; Z79.899 Other long term (current) drug therapy
CPT/HCPCS: 80048; 80076; 80143; 80307; 82077; 84443; 84703; 85027; 96372; 99285; J1200; J1630; J2060

== ENCOUNTER 2025-01-25 22:35 | Emergency (ER) | payer OTHER ==
[~2025-01-25] VITALS: Ht 167.6 cm; Wt 127.3 kg
[~2025-01-25 22:35] MED LIST changes: -ACE65ERTAB PO; +ACET-1515 PO; +ACET-1593 PO; -ACET650T15 PO; -IBUP-1022 PO; -IBUP1TAB6 PO; +IBUP600T42 PO; +SFHIBU600 PO
[2025-01-25 22:46] VITALS: BP 136/73; TEMP 97.8; O2SAT 99
[2025-01-26] MEDS: FLUoxetine 20 MG CAP PO ONE (01:09)
[2025-01-26] MEDS: lamoTRIgine 25 MG TAB PO ONE (01:09)
[2025-01-26] MEDS ORDERED: VRAY1.5C PO (01:54)
[2025-01-26] MEDS ORDERED: ADDE15CA3 PO (01:54)
[2025-01-26] MEDS ORDERED: LAMO-18 PO (01:54)
[2025-01-26] MEDS ORDERED: FLUO-96 PO (01:54)
[2025-01-26] MEDS ORDERED: DEXTROAMPHETAMINE/AMPHETAMINE 5 MG *ER* CAPSULE PO SCH (09:00)
== END 2025-01-26 02:07 | disposition home or self-care (01) ==
LOC: M ED 22:35
DX: Z76.0 Encounter for issue of repeat prescription (principal); Z76.5 Malingerer [conscious simulation]; F31.9 Bipolar disorder, unspecified; F17.210 Nicotine dependence, cigarettes, uncomplicated; Z88.0 Allergy status to penicillin; Z88.8 Allergy status to other drugs, medicaments and biological substances; Z79.899 Other long term (current) drug therapy
CPT/HCPCS: 80048; 80076; 80143; 80307; 82077; 84443; 84703; 85027; 96372; 99284; 99285; J1200; J1630; J2060

== ENCOUNTER 2025-01-26 13:25 | Emergency (ER) | payer OTHER ==
[~2025-01-26] VITALS: Ht 167.6 cm; Wt 145.0 kg
[~2025-01-26 13:25] MED LIST changes: +ACE65ERTAB PO; -ACET-1515 PO; -ACET-1593 PO; +ACET650T15 PO; +FLUO-96 PO; +IBUP-1022 PO; +IBUP1TAB6 PO; -IBUP600T42 PO; -SFHIBU600 PO
[2025-01-26 13:27] VITALS: BP 156/89; O2SAT 94
[2025-01-26] MEDS ORDERED: HOME MED LIST COMPLETE! XX SCH (16:15)
[2025-01-26 17:40] VITALS: TEMP 97.2
== END 2025-01-26 19:58 | disposition home or self-care (01) ==
LOC: M ED 13:25
DX: Z76.5 Malingerer [conscious simulation] (principal); F60.3 Borderline personality disorder; F43.10 Post-traumatic stress disorder, unspecified; F17.210 Nicotine dependence, cigarettes, uncomplicated; Z88.0 Allergy status to penicillin; Z79.899 Other long term (current) drug therapy

== ENCOUNTER 2025-01-27 02:00 | Emergency (ER) | payer OTHER | END 2025-01-27 09:31 | disposition home or self-care (01) | LOC: M ED 02:00 | DX: Z76.5 Malingerer [conscious simulation] (principal); Z88.0 Allergy status to penicillin; Z79.899 Other long term (current) drug therapy ==

== ENCOUNTER 2025-01-27 12:43 | Emergency (ER) | payer OTHER ==
[~2025-01-27] VITALS: Ht 167.6 cm; Wt 127.3 kg
[~2025-01-27 12:43] MED LIST changes: -ACE65ERTAB PO; +ACET-1515 PO; +ACET-1593 PO; -ACET650T15 PO
[2025-01-27 17:36] VITALS: BP 116/62; TEMP 98; O2SAT 98
== END 2025-01-27 17:39 | disposition home or self-care (01) ==
LOC: M ED 12:43
DX: Z76.5 Malingerer [conscious simulation] (principal); F60.3 Borderline personality disorder; Z88.0 Allergy status to penicillin; Z79.899 Other long term (current) drug therapy

== ENCOUNTER 2025-01-30 03:14 | Emergency (ER) | payer OTHER ==
[~2025-01-30 03:14] MED LIST changes: +ACE65ERTAB PO; -ACET-1515 PO; -ACET-1593 PO; +ACET650T15 PO
[2025-01-30 03:32] VITALS: BP 138/75; TEMP 98.2; O2SAT 98
[2025-01-30] MEDS ORDERED: HOME MED LIST COMPLETE! XX SCH (12:10)
== END 2025-01-30 12:30 | disposition home or self-care (01) ==
LOC: M ED 03:14
DX: F60.3 Borderline personality disorder (principal); Z88.0 Allergy status to penicillin; Z79.899 Other long term (current) drug therapy

== ENCOUNTER 2025-01-31 21:40 | Emergency (ER) | payer OTHER ==
[~2025-01-31 21:40] MED LIST changes: -ACE65ERTAB PO; +ACET-1515 PO; +ACET-1593 PO; -ACET650T15 PO
[2025-01-31] MEDS: diphenhydrAMINE 50 MG/ML VIAL IM ONE (22:38)
[2025-01-31] MEDS: HALOPERIDOL LACTATE 5 MG/ML VIAL IM ONE (22:38)
[2025-01-31 23:12] LABS: PLATELET COUNT, AUTOMATED 269 10^3/uL (150-450)
[2025-01-31 23:45] LABS: ETHYL ALCOHOL (ETHANOL) 0.004 % (0.000-0.010)
[2025-01-31 23:46] LABS: ALT/SGPT 29 U/L (7.0-40); AST/SGOT 20 U/L (<34); CALCIUM LEVEL 9.1 MG/DL (8.5-10.1); CARBON DIOXIDE LEVEL 26 MMOL/L (20-31); CHLORIDE LEVEL 106 MMOL/L (98-107); CREATININE FOR GFR 0.75 MG/DL (0.55-1.30); GLOMERULAR FILTRATION RATE > 90.0 (>60); POTASSIUM SERUM 4.0 MMOL/L (3.5-5.1); SALICYLATE LEVEL < 3.0 MG/DL (<30); SODIUM LEVEL 143 MMOL/L (136-145)
[2025-02-01 07:30] VITALS: BP 125/60; TEMP 98; O2SAT 100
== END 2025-02-01 09:39 | disposition home or self-care (01) ==
LOC: M ED 21:40
DX: F60.3 Borderline personality disorder (principal); F31.9 Bipolar disorder, unspecified; F43.10 Post-traumatic stress disorder, unspecified; Z88.0 Allergy status to penicillin; Z79.899 Other long term (current) drug therapy
CPT/HCPCS: 80048; 80076; 80143; 82077; 84443; 85027; 96372; 99285; J1200; J1630; J2060

== ENCOUNTER 2025-02-01 12:13 | Emergency (ER) | payer OTHER ==
[2025-02-01 12:48] VITALS: BP 136/75; TEMP 98.1; O2SAT 98
[2025-02-01] MEDS ORDERED: HOME MED LIST COMPLETE! XX SCH (14:45)
[2025-02-01] MEDS ORDERED: FLUoxetine 20 MG CAP PO SCH (21:00)
[2025-02-02] MEDS ORDERED: lamoTRIgine 25 MG TAB PO SCH (09:00)
[2025-02-02] MEDS ORDERED: DEXTROAMPHETAMINE/AMPHETAMINE 5 MG *ER* CAPSULE PO SCH (09:00)
== END 2025-02-01 19:38 | disposition home or self-care (01) ==
LOC: M ED 12:13
DX: Z04.6 Encounter for general psychiatric examination, requested by authority (principal); F60.3 Borderline personality disorder; Z88.0 Allergy status to penicillin; Z79.899 Other long term (current) drug therapy

== ENCOUNTER 2025-02-01 23:46 | Emergency (ER) | payer OTHER ==
[~2025-02-01] VITALS: Ht 172.7 cm; Wt 163.0 kg
[2025-02-02 10:35] VITALS: BP 137/91; TEMP 98; O2SAT 98
== END 2025-02-02 10:51 | disposition home or self-care (01) ==
LOC: M ED 23:46
DX: Z76.5 Malingerer [conscious simulation] (principal); F60.3 Borderline personality disorder; F41.9 Anxiety disorder, unspecified; F32.A Depression, unspecified; F43.10 Post-traumatic stress disorder, unspecified; F90.9 Attention-deficit hyperactivity disorder, unspecified type; Z88.0 Allergy status to penicillin

== ENCOUNTER 2025-03-05 20:48 | Emergency (ER) | payer OTHER ==
[~2025-03-05] VITALS: Ht 170.2 cm; Wt 127.3 kg
[~2025-03-05 20:48] MED LIST changes: -IBUP-1022 PO; -IBUP1TAB6 PO; +IBUP600T42 PO; +SFHIBU600 PO
[2025-03-05 21:26] LABS: VENOUS BASE EXCESS -0.3 (-2.0-2.0); VENOUS HCO3 24.2 MMOL/L (23.0-27.0); VENOUS O2 SATURATION 97.3 % (60.0-80.0); VENOUS PARTIAL PRESSURE CO2 39.1 mmHg (38.0-50.0); VENOUS PARTIAL PRESSURE O2 94.9 mmHg (30.0-50.0); VENOUS PH 7.409 UNITS (7.330-7.430); VENOUS STANDARD HCO3 24.2 MMOL/L; VENOUS TOTAL CO2 25.4 MMOL/L (24.0-28.0)
[2025-03-05 21:30] LABS: BASO # 0.0 10^3/uL (0.0-0.2); BASO % 0.2 % (0.0-1.0); EOS # 0.0 10^3/uL (0.0-0.5); EOS % 0.2 % (0.0-3.0); LYMPH # 1.4 10^3/uL (1.5-5.0); LYMPH % 14.3 % (24.0-44.0); MONO # 0.4 10^3/uL (0.0-0.8); MONO % 4.5 % (2.0-8.0); NEUTROPHILS # 7.9 10^3/uL (1.5-8.5); NEUTROPHILS % 80.5 % (36.0-66.0); PLATELET COUNT, AUTOMATED 252 10^3/uL (150-450)
[2025-03-05 21:54] LABS: ETHYL ALCOHOL (ETHANOL) < 0.003 % (0.000-0.010)
[2025-03-05 21:56] LABS: ALT/SGPT 26 U/L (7.0-40); AST/SGOT 32 U/L (<34); CALCIUM LEVEL 9.4 MG/DL (8.5-10.1); CARBON DIOXIDE LEVEL 24 MMOL/L (20-31); CHLORIDE LEVEL 108 MMOL/L (98-107); CREATININE FOR GFR 0.51 MG/DL (0.55-1.30); GLOMERULAR FILTRATION RATE > 90.0 (>60); POTASSIUM SERUM 4.3 MMOL/L (3.5-5.1); SALICYLATE LEVEL < 3.0 MG/DL (<30); SODIUM LEVEL 143 MMOL/L (136-145)
[2025-03-05 22:10] LABS: CPK CREATINE PHOSPHOKINASE 242 U/L (34-145)
[2025-03-05] MEDS: ONDANSETRON 4MG 2ML VIAL IV ONE (23:45)
[2025-03-06 00:09] LABS: AMPHETAMINES LEVEL URINE NEGATIVE (NEGATIVE)
[2025-03-06 00:10] LABS: BARBITURATES URINE NEGATIVE (NEGATIVE); BENZODIAZEPINES URINE NEGATIVE (NEGATIVE); CANNABINOIDS URINE NEGATIVE (NEGATIVE); COCAINE METABOLITE URINE NEGATIVE (NEGATIVE); METHADONE URINE NEGATIVE (NEGATIVE); OPIATES URINE NEGATIVE (NEGATIVE); PHENCYCLIDINE URINE NEGATIVE (NEGATIVE)
[2025-03-06] MEDS: MIDAZOLAM 5 MG/ML 1 ML VIAL IM ONE (00:43)
[2025-03-06] MEDS: SIMETHICONE 80MG CHEW TAB PO SCH (01:24)
[2025-03-06 02:24] LABS: CALCIUM LEVEL 9.1 MG/DL (8.5-10.1); CARBON DIOXIDE LEVEL 27 MMOL/L (20-31); CHLORIDE LEVEL 105 MMOL/L (98-107); CPK CREATINE PHOSPHOKINASE 210 U/L (34-145); CREATININE FOR GFR 0.61 MG/DL (0.55-1.30); GLOMERULAR FILTRATION RATE > 90.0 (>60); POTASSIUM SERUM 4.0 MMOL/L (3.5-5.1); SODIUM LEVEL 143 MMOL/L (136-145)
[2025-03-06] MEDS: OLANZapine INTRAMUSCULAR 10MG VIAL IM STA (04:36)
[2025-03-06 04:46] LABS: CK-MB VALUE MASS 2.4 NG/ML (<3.6); MB/CK RELATIVE INDEX 1.14 (< OR =4)
[2025-03-06] MEDS: NICOTINE POLACRILEX 2 MG GUM PO ONE (06:17)
[2025-03-06 09:00] VITALS: BP 133/74; TEMP 97.8; O2SAT 97
== END 2025-03-06 09:00 | disposition home or self-care (01) ==
LOC: M ED 20:48
DX: Z76.5 Malingerer [conscious simulation] (principal); F60.3 Borderline personality disorder; F31.9 Bipolar disorder, unspecified; F43.10 Post-traumatic stress disorder, unspecified; F90.9 Attention-deficit hyperactivity disorder, unspecified type; Z88.0 Allergy status to penicillin; Z88.8 Allergy status to other drugs, medicaments and biological substances; Z79.899 Other long term (current) drug therapy
CPT/HCPCS: 36415; 71045; 73110; 73130; 80047; 80048; 80076; 80143; 80307; 82077; 82550; 82553; 82803; 84443; 84484; 85025; 93005; 93041; 94760; 96372; 99285; J2250

== ENCOUNTER 2025-03-07 00:02 | Emergency (ER) | payer OTHER ==
[2025-03-07 01:04] VITALS: BP 135/58; TEMP 97.8; O2SAT 99
[2025-03-07] MEDS: NICOTINE POLACRILEX 2 MG GUM PO ONE (04:23)
== END 2025-03-07 10:15 | disposition home or self-care (01) ==
LOC: M ED 00:02
DX: F60.9 Personality disorder, unspecified (principal); Z76.5 Malingerer [conscious simulation]; E66.9 Obesity, unspecified; Z88.0 Allergy status to penicillin; Z88.8 Allergy status to other drugs, medicaments and biological substances; Z79.899 Other long term (current) drug therapy

== ENCOUNTER 2025-03-08 07:45 | Emergency (ER) | payer OTHER ==
[2025-03-08 08:03] VITALS: BP 135/83; TEMP 98.2; O2SAT 99
[2025-03-08] MEDS ORDERED: HOME MED LIST COMPLETE! XX SCH (08:25)
== END 2025-03-08 10:59 | disposition home or self-care (01) ==
LOC: M ED 07:45
DX: F60.3 Borderline personality disorder (principal); Z76.5 Malingerer [conscious simulation]; Z88.0 Allergy status to penicillin; Z88.8 Allergy status to other drugs, medicaments and biological substances; Z79.899 Other long term (current) drug therapy

== ENCOUNTER 2025-03-08 20:24 | Emergency (ER) | payer OTHER ==
[~2025-03-08] VITALS: Ht 170.2 cm; Wt 124.0 kg
[2025-03-08 21:35] LABS: PLATELET COUNT, AUTOMATED 244 10^3/uL (150-450)
[2025-03-08 21:54] LABS: ETHYL ALCOHOL (ETHANOL) < 0.003 % (0.000-0.010)
[2025-03-08 21:56] LABS: ALT/SGPT 31 U/L (7.0-40); AST/SGOT 23 U/L (<34); CALCIUM LEVEL 8.9 MG/DL (8.5-10.1); CARBON DIOXIDE LEVEL 26 MMOL/L (20-31); CHLORIDE LEVEL 109 MMOL/L (98-107); CREATININE FOR GFR 0.62 MG/DL (0.55-1.30); GLOMERULAR FILTRATION RATE > 90.0 (>60); POTASSIUM SERUM 3.8 MMOL/L (3.5-5.1); SALICYLATE LEVEL < 3.0 MG/DL (<30); SODIUM LEVEL 145 MMOL/L (136-145)
[2025-03-08 23:02] LABS: AMPHETAMINES LEVEL URINE NEGATIVE (NEGATIVE); BARBITURATES URINE NEGATIVE (NEGATIVE); BENZODIAZEPINES URINE NEGATIVE (NEGATIVE); COCAINE METABOLITE URINE NEGATIVE (NEGATIVE)
[2025-03-08 23:03] LABS: CANNABINOIDS URINE NEGATIVE (NEGATIVE); METHADONE URINE NEGATIVE (NEGATIVE); OPIATES URINE NEGATIVE (NEGATIVE); PHENCYCLIDINE URINE NEGATIVE (NEGATIVE)
[2025-03-09] MEDS ORDERED: HOME MED LIST COMPLETE! XX SCH (07:05)
[2025-03-09 10:03] VITALS: BP 132/92; TEMP 97; O2SAT 96
== END 2025-03-09 10:35 | disposition home or self-care (01) ==
LOC: M ED 20:24
DX: Z76.5 Malingerer [conscious simulation] (principal); F32.A Depression, unspecified; F90.9 Attention-deficit hyperactivity disorder, unspecified type; F60.3 Borderline personality disorder; Z88.0 Allergy status to penicillin; Z88.8 Allergy status to other drugs, medicaments and biological substances; Z79.899 Other long term (current) drug therapy

== ENCOUNTER 2025-03-10 11:05 | Emergency (ER) | payer OTHER ==
[~2025-03-10] VITALS: Ht 167.6 cm; Wt 127.3 kg
[2025-03-10 11:15] VITALS: BP 121/58; TEMP 98.2; O2SAT 98
[2025-03-10 12:14] LABS: PLATELET COUNT, AUTOMATED 261 10^3/uL (150-450)
[2025-03-10] MEDS: ACETAMINOPHEN 325 MG TAB PO ONE (12:25)
[2025-03-10 13:06] LABS: AMPHETAMINES LEVEL URINE NEGATIVE (NEGATIVE); BARBITURATES URINE NEGATIVE (NEGATIVE)
[2025-03-10 13:07] LABS: BENZODIAZEPINES URINE NEGATIVE (NEGATIVE); CANNABINOIDS URINE NEGATIVE (NEGATIVE); COCAINE METABOLITE URINE NEGATIVE (NEGATIVE); ETHYL ALCOHOL (ETHANOL) < 0.003 % (0.000-0.010); METHADONE URINE NEGATIVE (NEGATIVE); OPIATES URINE NEGATIVE (NEGATIVE); PHENCYCLIDINE URINE NEGATIVE (NEGATIVE)
[2025-03-10 13:08] LABS: ALT/SGPT 34 U/L (7.0-40); AST/SGOT 20 U/L (<34); CALCIUM LEVEL 9.1 MG/DL (8.5-10.1); CARBON DIOXIDE LEVEL 25 MMOL/L (20-31); CHLORIDE LEVEL 108 MMOL/L (98-107); CREATININE FOR GFR 0.54 MG/DL (0.55-1.30); GLOMERULAR FILTRATION RATE > 90.0 (>60); POTASSIUM SERUM 4.3 MMOL/L (3.5-5.1); SALICYLATE LEVEL < 3.0 MG/DL (<30); SODIUM LEVEL 143 MMOL/L (136-145)
== END 2025-03-10 16:15 | disposition home or self-care (01) ==
LOC: M ED 11:05
DX: F60.3 Borderline personality disorder (principal); F31.9 Bipolar disorder, unspecified; F43.10 Post-traumatic stress disorder, unspecified; F41.9 Anxiety disorder, unspecified; F17.290 Nicotine dependence, other tobacco product, uncomplicated; Z88.0 Allergy status to penicillin; Z88.8 Allergy status to other drugs, medicaments and biological substances; Z79.899 Other long term (current) drug therapy

== ENCOUNTER 2025-03-12 23:55 | Emergency (ER) | payer OTHER, SELFPAY ==
[2025-03-13] MEDS ORDERED: OLANZapine INTRAMUSCULAR 10MG VIAL IM ONE (00:05)
[2025-03-13 00:45] VITALS: TEMP 97.5
[2025-03-13 02:10] VITALS: BP 135/90; O2SAT 98
== END 2025-03-13 02:37 | disposition home or self-care (01) ==
LOC: M ED 23:55
DX: F60.3 Borderline personality disorder (principal); F32.A Depression, unspecified; F90.9 Attention-deficit hyperactivity disorder, unspecified type; F43.10 Post-traumatic stress disorder, unspecified; F12.10 Cannabis abuse, uncomplicated; Z88.0 Allergy status to penicillin; Z88.8 Allergy status to other drugs, medicaments and biological substances; Z79.899 Other long term (current) drug therapy

== ENCOUNTER 2025-03-13 04:40 | Emergency (ER) | payer SELFPAY ==
[~2025-03-13] VITALS: Ht 167.6 cm; Wt 127.3 kg
[2025-03-13 04:45] VITALS: BP 131/74; TEMP 97.4; O2SAT 98
== END 2025-03-13 06:34 | disposition left against medical advice (07) ==
LOC: M ED 04:40
DX: Z53.21 Procedure and treatment not carried out due to patient leaving prior to being seen by health care provider (principal)

== ENCOUNTER 2025-03-13 15:41 | Inpatient (IN) | payer SELFPAY ==
[2025-03-13 17:48] LABS: PLATELET COUNT, AUTOMATED 304 10^3/uL (150-450)
[2025-03-13] MEDS ORDERED: HOME MED LIST COMPLETE! XX SCH (18:10)
[2025-03-13 18:20] LABS: ETHYL ALCOHOL (ETHANOL) < 0.003 % (0.000-0.010)
[2025-03-13 18:22] LABS: ALT/SGPT 31 U/L (7.0-40); AST/SGOT 24 U/L (<34); CALCIUM LEVEL 9.9 MG/DL (8.5-10.1); CARBON DIOXIDE LEVEL 24 MMOL/L (20-31); CHLORIDE LEVEL 104 MMOL/L (98-107); CREATININE FOR GFR 0.65 MG/DL (0.55-1.30); GLOMERULAR FILTRATION RATE > 90.0 (>60); POTASSIUM SERUM 4.0 MMOL/L (3.5-5.1); SALICYLATE LEVEL < 3.0 MG/DL (<30); SODIUM LEVEL 141 MMOL/L (136-145)
[2025-03-13 18:55] LABS: AMPHETAMINES LEVEL URINE NEGATIVE (NEGATIVE); BARBITURATES URINE NEGATIVE (NEGATIVE); BENZODIAZEPINES URINE NEGATIVE (NEGATIVE); CANNABINOIDS URINE NEGATIVE (NEGATIVE); COCAINE METABOLITE URINE NEGATIVE (NEGATIVE); METHADONE URINE NEGATIVE (NEGATIVE); OPIATES URINE NEGATIVE (NEGATIVE); PHENCYCLIDINE URINE NEGATIVE (NEGATIVE)
[2025-03-13] MEDS ORDERED: MOM 30 ML SUSPENSION UDC PO PRN (19:45)
[2025-03-13] MEDS ORDERED: IBUPROFEN 400 MG TAB PO PRN (19:45)
[2025-03-13] MEDS ORDERED: traZODone 50 MG TAB PO PRN (19:45)
[2025-03-13] MEDS ORDERED: OLANZapine 5 MG TAB PO PRN (19:45)
[2025-03-13] MEDS ORDERED: MAALOX 30 ML SUSP *UDC PO PRN (19:45)
[2025-03-13 20:09] VITALS: BP 143/69; TEMP 97.5; O2SAT 95
[2025-03-13] MEDS: FLUoxetine 20 MG CAP PO SCH (20:12)
[2025-03-13] MEDS: NICOTINE POLACRILEX 2 MG GUM PO ONE (20:12)
[2025-03-14] MEDS: ACETAMINOPHEN 325 MG TAB PO PRN (01:17)
[2025-03-14] MEDS: NICOTINE POLACRILEX 2 MG GUM PO PRN (01:47)
[2025-03-14] MEDS ORDERED: lamoTRIgine 25 MG TAB PO SCH (09:00)
== END 2025-03-14 07:56 | disposition home or self-care (01) | DRG 752 ==
LOC: M ED 15:41 → M ED INP 19:44 → M PSY 03-14 00:44
PROVIDERS: ADMIT Psychiatry & Neurology Neurology; ATTEND Psychiatry & Neurology Neurology
DX: F60.3 Borderline personality disorder (principal); Z88.0 Allergy status to penicillin; Z76.5 Malingerer [conscious simulation]; Z91.51 Personal history of suicidal behavior; Z79.899 Other long term (current) drug therapy; Z88.8 Allergy status to other drugs, medicaments and biological substances

== ENCOUNTER 2025-03-15 00:05 | Emergency (ER) | payer MEDICAID, OTHER, SELFPAY ==
[~2025-03-15] VITALS: Ht 165.1 cm; Wt 127.2 kg
[2025-03-15 00:14] VITALS: BP 144/84; TEMP 97.8; O2SAT 95
[2025-03-15] MEDS ORDERED: HOME MED LIST COMPLETE! XX SCH (07:10)
== END 2025-03-15 11:06 | disposition home or self-care (01) ==
LOC: M ED 00:05
DX: F60.3 Borderline personality disorder (principal); F31.9 Bipolar disorder, unspecified; Z88.0 Allergy status to penicillin; Z88.8 Allergy status to other drugs, medicaments and biological substances; Z79.899 Other long term (current) drug therapy

== ENCOUNTER 2025-03-15 18:22 | Emergency (ER) | payer MEDICAID, OTHER ==
[~2025-03-15] VITALS: Ht 167.6 cm; Wt 127.3 kg
[2025-03-15 20:32] VITALS: BP 111/68; TEMP 98.5; O2SAT 98
== END 2025-03-15 20:58 | disposition home or self-care (01) ==
LOC: M ED 18:22
DX: F60.3 Borderline personality disorder (principal); F31.9 Bipolar disorder, unspecified; Z88.0 Allergy status to penicillin; Z88.8 Allergy status to other drugs, medicaments and biological substances; Z79.899 Other long term (current) drug therapy

== ENCOUNTER 2025-03-20 00:59 | Emergency (ER) | payer MEDICAID, OTHER ==
[~2025-03-20] VITALS: Ht 167.6 cm; Wt 190.0 kg
[2025-03-20 01:09] VITALS: TEMP 98
[2025-03-20 01:59] LABS: BARBITURATES URINE NEGATIVE (NEGATIVE)
[2025-03-20 02:00] LABS: AMPHETAMINES LEVEL URINE NEGATIVE (NEGATIVE); BENZODIAZEPINES URINE NEGATIVE (NEGATIVE); CANNABINOIDS URINE NEGATIVE (NEGATIVE); COCAINE METABOLITE URINE NEGATIVE (NEGATIVE); METHADONE URINE NEGATIVE (NEGATIVE); OPIATES URINE NEGATIVE (NEGATIVE); PHENCYCLIDINE URINE NEGATIVE (NEGATIVE)
[2025-03-20] MEDS: ACETAMINOPHEN 325 MG TAB PO ONE (02:20)
[2025-03-20] MEDS: diphenhydrAMINE 50 MG/ML VIAL IM ONE (03:54)
[2025-03-20] MEDS: OLANZapine INTRAMUSCULAR 10MG VIAL IM ONE (03:54)
[2025-03-20 04:45] VITALS: BP 128/78; O2SAT 100
[2025-03-20 06:21] LABS: APPEARANCE, URINE CLOUDY (CLEAR); BACTERIA, URINE AUTO 2+ (NEGATIVE); BILIRUBIN, URINE AUTO NEGATIVE (NEGATIVE); BLOOD, URINE BLOOD 2+ (NEGATIVE); CALCIUM OXALATE CRYSTALS LARGE; GLUCOSE, URINE (UA) AUTO NEGATIVE (NEGATIVE); KETONE, URINE AUTO NEGATIVE (NEGATIVE); LEUKOCYTE ESTERASE, URINE AUTO NEGATIVE (NEGATIVE); NITRITE, URINE AUTO NEGATIVE (NEGATIVE); PROTEIN, URINE AUTO NEGATIVE (NEGATIVE); RBC, URINE AUTO 4 /HPF (0-3); SPECIFIC GRAVITY URINE AUTO 1.019 (1.002-1.035); SQUAMOUS EPITHELIAL CELL UR AU 6 /HPF (0-6); UROBILINOGEN, URINE AUTO 0.2 mg/dL (0.0-2.0); WBC, URINE AUTO 9 /HPF (0-3)
== END 2025-03-20 06:39 | disposition home or self-care (01) ==
LOC: M ED 00:59
DX: F43.0 Acute stress reaction (principal); F60.3 Borderline personality disorder; Z88.0 Allergy status to penicillin; Z88.8 Allergy status to other drugs, medicaments and biological substances; Z79.899 Other long term (current) drug therapy
CPT/HCPCS: 73620; 80307; 81001; 96372; 99285; J1200; J2359

== ENCOUNTER 2025-03-20 21:26 | Emergency (ER) | payer MEDICAID, MEDICARE, OTHER, SELFPAY ==
[~2025-03-20] VITALS: Ht 170.2 cm; Wt 190.0 kg
[~2025-03-20 21:26] MED LIST changes: +ZOLP10TA11 PO; -ZOLP10TA2 PO
[2025-03-20 21:28] VITALS: TEMP 98.3
[2025-03-20] MEDS: ACETAMINOPHEN 500 MG TAB PO PRN (23:23)
[2025-03-21 05:56] VITALS: BP 150/87; O2SAT 99
== END 2025-03-21 14:00 | disposition home or self-care (01) ==
LOC: M ED 21:26
DX: F43.0 Acute stress reaction (principal); Z76.5 Malingerer [conscious simulation]; F60.3 Borderline personality disorder; F31.9 Bipolar disorder, unspecified; Z88.0 Allergy status to penicillin; Z88.8 Allergy status to other drugs, medicaments and biological substances; Z79.899 Other long term (current) drug therapy; F43.10 Post-traumatic stress disorder, unspecified; F41.9 Anxiety disorder, unspecified
CPT/HCPCS: 73620; 80307; 81001; 96372; 99284; 99285; J1200; J2359

== ENCOUNTER 2025-03-22 07:18 | Emergency (ER) | payer MEDICAID ==
[2025-03-22 07:22] VITALS: BP 133/79
[2025-03-22] MEDS: ONDANSETRON 4MG TAB PO ONE (07:44)
[2025-03-22 08:38] VITALS: TEMP 96.8; O2SAT 99
== END 2025-03-22 09:32 | disposition home or self-care (01) ==
LOC: M ED 09:02
DX: F60.3 Borderline personality disorder (principal); F12.10 Cannabis abuse, uncomplicated; Z88.0 Allergy status to penicillin; Z88.8 Allergy status to other drugs, medicaments and biological substances; Z79.899 Other long term (current) drug therapy

== ENCOUNTER 2025-03-23 16:11 | Emergency (ER) | payer MEDICAID ==
[2025-03-23 20:25] VITALS: BP 134/81; TEMP 98.6; O2SAT 100
== END 2025-03-23 20:32 | disposition home or self-care (01) ==
LOC: M ED 16:11
DX: F60.3 Borderline personality disorder (principal); Z88.0 Allergy status to penicillin; Z88.8 Allergy status to other drugs, medicaments and biological substances; Z79.899 Other long term (current) drug therapy

== ENCOUNTER 2025-03-29 17:38 | Emergency (ER) | payer MEDICAID, OTHER ==
[~2025-03-29] VITALS: Ht 167.6 cm; Wt 137.5 kg
[2025-03-29 18:28] LABS: BASO # 0.0 10^3/uL (0.0-0.2); BASO % 0.2 % (0.0-1.0); EOS # 0.1 10^3/uL (0.0-0.5); EOS % 0.7 % (0.0-3.0); LYMPH # 1.9 10^3/uL (1.5-5.0); LYMPH % 21.1 % (24.0-44.0); MONO # 0.7 10^3/uL (0.0-0.8); MONO % 8.1 % (2.0-8.0); NEUTROPHILS # 6.4 10^3/uL (1.5-8.5); NEUTROPHILS % 69.6 % (36.0-66.0); PLATELET COUNT, AUTOMATED 307 10^3/uL (150-450)
[2025-03-29] MEDS: CHARCOAL ACTIVATED LIQUID 25 GM/120 ML BTL PO ONE (18:35)
[2025-03-29] MEDS: ONDANSETRON 4MG ORAL DISINTEGRATING TAB PO ONE (18:50)
[2025-03-29 18:54] LABS: ALT/SGPT 47 U/L (7.0-40); AST/SGOT 33 U/L (<34); CALCIUM LEVEL 9.8 MG/DL (8.5-10.1); CARBON DIOXIDE LEVEL 27 MMOL/L (20-31); CHLORIDE LEVEL 105 MMOL/L (98-107); CPK CREATINE PHOSPHOKINASE 363 U/L (34-145); CREATININE FOR GFR 0.61 MG/DL (0.55-1.30); GLOMERULAR FILTRATION RATE > 90.0 (>60); POTASSIUM SERUM 4.2 MMOL/L (3.5-5.1); SALICYLATE LEVEL < 3.0 MG/DL (<30); SODIUM LEVEL 142 MMOL/L (136-145)
[2025-03-29 18:56] LABS: ETHYL ALCOHOL (ETHANOL) < 0.003 % (0.000-0.010)
[2025-03-29 19:21] LABS: HCG, SERUM QUALITATIVE NEGATIVE (NEGATIVE)
[2025-03-29 19:26] VITALS: BP 112/53; TEMP 97.9; O2SAT 99
[2025-03-29 21:30] LABS: MAGNESIUM LEVEL 2.3 MG/DL (1.8-2.4)
== END 2025-03-29 21:01 | disposition left against medical advice (07) ==
LOC: M ED 17:38 → EDBD 17:38 → M ED 21:01
DX: R45.851 Suicidal ideations (principal); F60.3 Borderline personality disorder; Z88.0 Allergy status to penicillin; Z88.8 Allergy status to other drugs, medicaments and biological substances; Z79.899 Other long term (current) drug therapy

== ENCOUNTER 2025-03-29 21:15 | Emergency (ER) | payer MEDICAID, OTHER ==
[~2025-03-29] VITALS: Ht 175.3 cm; Wt 200.0 kg
[2025-03-29] MEDS: ONDANSETRON 4MG ORAL DISINTEGRATING TAB PO ONE (22:03)
[2025-03-29] MEDS: KETOROLAC 30 MG/ML 1 ML VIAL IM ONE (23:05)
[2025-03-29 23:45] LABS: AMPHETAMINES LEVEL URINE NEGATIVE (NEGATIVE); BARBITURATES URINE NEGATIVE (NEGATIVE); CANNABINOIDS URINE NEGATIVE (NEGATIVE); METHADONE URINE NEGATIVE (NEGATIVE); OPIATES URINE NEGATIVE (NEGATIVE); PHENCYCLIDINE URINE NEGATIVE (NEGATIVE)
[2025-03-29 23:46] LABS: COCAINE METABOLITE URINE NEGATIVE (NEGATIVE)
[2025-03-29 23:50] LABS: BENZODIAZEPINES URINE POSITIVE (NEGATIVE)
[2025-03-30 09:35] VITALS: BP 129/60; TEMP 97.7; O2SAT 95
== END 2025-03-30 09:46 | disposition home or self-care (01) ==
LOC: M ED 21:15
DX: Z76.5 Malingerer [conscious simulation] (principal); R45.851 Suicidal ideations; F60.3 Borderline personality disorder; F43.10 Post-traumatic stress disorder, unspecified; Z88.0 Allergy status to penicillin; Z88.8 Allergy status to other drugs, medicaments and biological substances; Z79.899 Other long term (current) drug therapy
CPT/HCPCS: 36415; 80048; 80076; 80143; 80307; 82077; 82550; 83735; 84443; 84703; 85025; 93005; 93041; 94760; 96372; 99285; J1885

== ENCOUNTER 2025-04-05 03:05 | Emergency (ER) | payer OTHER ==
[2025-04-05 03:51] LABS: PLATELET COUNT, AUTOMATED 326 10^3/uL (150-450)
[2025-04-05 04:08] LABS: AMPHETAMINES LEVEL URINE NEGATIVE (NEGATIVE); BARBITURATES URINE NEGATIVE (NEGATIVE)
[2025-04-05 04:09] LABS: BENZODIAZEPINES URINE NEGATIVE (NEGATIVE); CANNABINOIDS URINE NEGATIVE (NEGATIVE); COCAINE METABOLITE URINE NEGATIVE (NEGATIVE); METHADONE URINE NEGATIVE (NEGATIVE); OPIATES URINE NEGATIVE (NEGATIVE); PHENCYCLIDINE URINE NEGATIVE (NEGATIVE)
[2025-04-05 04:11] LABS: ETHYL ALCOHOL (ETHANOL) < 0.003 % (0.000-0.010); SALICYLATE LEVEL < 3.0 MG/DL (<30)
[2025-04-05 04:18] LABS: ALT/SGPT 35 U/L (7.0-40); AST/SGOT 28 U/L (<34); CALCIUM LEVEL 8.9 MG/DL (8.5-10.1); CARBON DIOXIDE LEVEL 25 MMOL/L (20-31); CHLORIDE LEVEL 103 MMOL/L (98-107); CREATININE FOR GFR 0.60 MG/DL (0.55-1.30); GLOMERULAR FILTRATION RATE > 90.0 (>60); POTASSIUM SERUM 4.2 MMOL/L (3.5-5.1); SODIUM LEVEL 137 MMOL/L (136-145)
[2025-04-05 08:25] VITALS: BP 135/90; TEMP 97.5; O2SAT 100
== END 2025-04-05 08:29 | disposition home or self-care (01) ==
LOC: M ED 03:05
DX: F60.3 Borderline personality disorder (principal); Z76.5 Malingerer [conscious simulation]; Z88.0 Allergy status to penicillin; Z88.8 Allergy status to other drugs, medicaments and biological substances; Z79.899 Other long term (current) drug therapy

== ENCOUNTER 2025-04-05 15:29 | Emergency (ER) | payer OTHER ==
[~2025-04-05] VITALS: Ht 162.6 cm; Wt 149.2 kg
[2025-04-05 15:59] LABS: BASO # 0.0 10^3/uL (0.0-0.2); BASO % 0.2 % (0.0-1.0); EOS # 0.0 10^3/uL (0.0-0.5); EOS % 0.2 % (0.0-3.0); LYMPH # 1.4 10^3/uL (1.5-5.0); LYMPH % 11.8 % (24.0-44.0); MONO # 0.6 10^3/uL (0.0-0.8); MONO % 4.8 % (2.0-8.0); NEUTROPHILS # 10.0 10^3/uL (1.5-8.5); NEUTROPHILS % 82.3 % (36.0-66.0); PLATELET COUNT, AUTOMATED 312 10^3/uL (150-450)
[2025-04-05 16:22] LABS: ETHYL ALCOHOL (ETHANOL) < 0.003 % (0.000-0.010)
[2025-04-05 16:23] LABS: CPK CREATINE PHOSPHOKINASE 266 U/L (34-145); SALICYLATE LEVEL < 3.0 MG/DL (<30)
[2025-04-05 16:49] LABS: URINE PREG TEST NEGATIVE (NEGATIVE)
[2025-04-05 16:59] LABS: ALT/SGPT 36 U/L (7.0-40); AST/SGOT 25 U/L (<34); CALCIUM LEVEL 9.6 MG/DL (8.5-10.1); CARBON DIOXIDE LEVEL 25 MMOL/L (20-31); CHLORIDE LEVEL 104 MMOL/L (98-107); CREATININE FOR GFR 0.63 MG/DL (0.55-1.30); GLOMERULAR FILTRATION RATE > 90.0 (>60); POTASSIUM SERUM 3.9 MMOL/L (3.5-5.1); SODIUM LEVEL 138 MMOL/L (136-145)
[2025-04-05] MEDS: ACETAMINOPHEN 325 MG TAB PO ONE (17:10)
[2025-04-05 17:12] LABS: AMPHETAMINES LEVEL URINE NEGATIVE (NEGATIVE); BARBITURATES URINE NEGATIVE (NEGATIVE); BENZODIAZEPINES URINE NEGATIVE (NEGATIVE); CANNABINOIDS URINE NEGATIVE (NEGATIVE); COCAINE METABOLITE URINE NEGATIVE (NEGATIVE); METHADONE URINE NEGATIVE (NEGATIVE); OPIATES URINE NEGATIVE (NEGATIVE); PHENCYCLIDINE URINE NEGATIVE (NEGATIVE)
[2025-04-05] MEDS ORDERED: HOME MED LIST COMPLETE! XX SCH (20:15)
[2025-04-05] MEDS: ONDANSETRON 4MG ORAL DISINTEGRATING TAB PO ONE (20:17)
[2025-04-06 06:33] VITALS: BP 151/70; TEMP 97.9; O2SAT 99
== END 2025-04-06 14:01 | disposition home or self-care (01) ==
LOC: M ED 15:29 → EDBD 15:29 → M ED 04-06 14:01
DX: F60.3 Borderline personality disorder (principal); Z76.5 Malingerer [conscious simulation]; Z88.0 Allergy status to penicillin; Z88.8 Allergy status to other drugs, medicaments and biological substances; Z79.899 Other long term (current) drug therapy

== ENCOUNTER 2025-04-06 23:30 | Emergency (ER) | payer OTHER ==
[~2025-04-06] VITALS: Ht 170.2 cm; Wt 123.0 kg
[2025-04-07 01:57] VITALS: BP 144/78; TEMP 97.3; O2SAT 97
== END 2025-04-07 09:05 | disposition home or self-care (01) ==
LOC: M ED 23:30
DX: Z76.5 Malingerer [conscious simulation] (principal); F31.9 Bipolar disorder, unspecified; F60.3 Borderline personality disorder; Z88.0 Allergy status to penicillin; Z88.8 Allergy status to other drugs, medicaments and biological substances; Z79.899 Other long term (current) drug therapy

== ENCOUNTER 2025-04-07 20:16 | Emergency (ER) | payer OTHER ==
[~2025-04-07] VITALS: Ht 172.7 cm; Wt 129.0 kg
[2025-04-07 20:31] VITALS: BP 113/93; TEMP 98.3; O2SAT 100
[2025-04-08 00:09] LABS: AMPHETAMINES LEVEL URINE NEGATIVE (NEGATIVE); BARBITURATES URINE NEGATIVE (NEGATIVE); BENZODIAZEPINES URINE NEGATIVE (NEGATIVE); CANNABINOIDS URINE NEGATIVE (NEGATIVE); COCAINE METABOLITE URINE NEGATIVE (NEGATIVE); METHADONE URINE NEGATIVE (NEGATIVE); PHENCYCLIDINE URINE NEGATIVE (NEGATIVE)
[2025-04-08 00:10] LABS: OPIATES URINE NEGATIVE (NEGATIVE)
[2025-04-08 00:13] LABS: PLATELET COUNT, AUTOMATED 300 10^3/uL (150-450); SALICYLATE LEVEL < 3.0 MG/DL (<30)
[2025-04-08 00:15] LABS: ETHYL ALCOHOL (ETHANOL) < 0.003 % (0.000-0.010)
[2025-04-08 00:31] LABS: HCG, SERUM QUALITATIVE NEGATIVE (NEGATIVE)
[2025-04-08 00:51] LABS: ALT/SGPT 29 U/L (7.0-40); AST/SGOT 17 U/L (<34); CALCIUM LEVEL 8.6 MG/DL (8.5-10.1); CARBON DIOXIDE LEVEL 27 MMOL/L (20-31); CHLORIDE LEVEL 106 MMOL/L (98-107); CREATININE FOR GFR 0.55 MG/DL (0.55-1.30); GLOMERULAR FILTRATION RATE > 90.0 (>60); POTASSIUM SERUM 3.8 MMOL/L (3.5-5.1); SODIUM LEVEL 142 MMOL/L (136-145)
== END 2025-04-08 10:42 | disposition home or self-care (01) ==
LOC: M ED 20:16
DX: Z76.5 Malingerer [conscious simulation] (principal); F32.A Depression, unspecified; F90.9 Attention-deficit hyperactivity disorder, unspecified type; F43.10 Post-traumatic stress disorder, unspecified; Z88.0 Allergy status to penicillin; Z88.8 Allergy status to other drugs, medicaments and biological substances; Z79.899 Other long term (current) drug therapy

== ENCOUNTER 2025-04-17 23:14 | Emergency (ER) | payer OTHER ==
[2025-04-18 09:06] VITALS: BP 127/67; TEMP 97.9; O2SAT 98
== END 2025-04-18 09:30 | disposition home or self-care (01) ==
LOC: M ED 23:14
DX: Z76.5 Malingerer [conscious simulation] (principal); J45.909 Unspecified asthma, uncomplicated; F60.3 Borderline personality disorder; Z88.0 Allergy status to penicillin; Z88.8 Allergy status to other drugs, medicaments and biological substances; Z79.899 Other long term (current) drug therapy

== ENCOUNTER 2025-04-19 04:24 | Emergency (ER) | payer OTHER ==
[2025-04-19 05:05] VITALS: BP 154/92; TEMP 96.9; O2SAT 98
== END 2025-04-19 06:57 | disposition home or self-care (01) ==
LOC: M ED 04:24
DX: F43.0 Acute stress reaction (principal); F43.10 Post-traumatic stress disorder, unspecified; F32.A Depression, unspecified; F60.3 Borderline personality disorder; F90.9 Attention-deficit hyperactivity disorder, unspecified type; F41.9 Anxiety disorder, unspecified; Z88.0 Allergy status to penicillin; Z88.8 Allergy status to other drugs, medicaments and biological substances; Z79.899 Other long term (current) drug therapy

== ENCOUNTER 2025-04-19 19:22 | Emergency (ER) | payer OTHER ==
[~2025-04-19] VITALS: Ht 167.6 cm; Wt 128.0 kg
[2025-04-19 20:40] LABS: AMPHETAMINES LEVEL URINE NEGATIVE (NEGATIVE); BARBITURATES URINE NEGATIVE (NEGATIVE); BENZODIAZEPINES URINE NEGATIVE (NEGATIVE); COCAINE METABOLITE URINE NEGATIVE (NEGATIVE)
[2025-04-19 20:41] LABS: CANNABINOIDS URINE NEGATIVE (NEGATIVE); METHADONE URINE NEGATIVE (NEGATIVE); OPIATES URINE NEGATIVE (NEGATIVE); PHENCYCLIDINE URINE NEGATIVE (NEGATIVE)
[2025-04-19 21:24] LABS: PLATELET COUNT, AUTOMATED 276 10^3/uL (150-450)
[2025-04-19 21:54] LABS: ETHYL ALCOHOL (ETHANOL) < 0.003 % (0.000-0.010)
[2025-04-19 21:55] LABS: SALICYLATE LEVEL < 3.0 MG/DL (<30)
[2025-04-19 21:56] LABS: ALT/SGPT 40 U/L (7.0-40); AST/SGOT 32 U/L (<34); CALCIUM LEVEL 8.9 MG/DL (8.5-10.1); CARBON DIOXIDE LEVEL 28 MMOL/L (20-31); CHLORIDE LEVEL 104 MMOL/L (98-107); CREATININE FOR GFR 0.60 MG/DL (0.55-1.30); GLOMERULAR FILTRATION RATE > 90.0 (>60); HCG, SERUM QUALITATIVE NEGATIVE (NEGATIVE); POTASSIUM SERUM 3.7 MMOL/L (3.5-5.1); SODIUM LEVEL 142 MMOL/L (136-145)
[2025-04-19] MEDS: ACETAMINOPHEN 325 MG TAB PO ONE (23:09)
[2025-04-20 11:58] VITALS: BP 135/76; TEMP 97.9; O2SAT 100
== END 2025-04-20 13:00 | disposition home or self-care (01) ==
LOC: M ED 19:22
DX: Z76.5 Malingerer [conscious simulation] (principal); F32.A Depression, unspecified; Z88.0 Allergy status to penicillin; Z88.8 Allergy status to other drugs, medicaments and biological substances; Z79.899 Other long term (current) drug therapy

== ENCOUNTER 2025-04-20 20:17 | Emergency (ER) | payer OTHER ==
[2025-04-20 23:58] LABS: AMPHETAMINES LEVEL URINE NEGATIVE (NEGATIVE); BARBITURATES URINE NEGATIVE (NEGATIVE); BENZODIAZEPINES URINE NEGATIVE (NEGATIVE); CANNABINOIDS URINE NEGATIVE (NEGATIVE); COCAINE METABOLITE URINE NEGATIVE (NEGATIVE); METHADONE URINE NEGATIVE (NEGATIVE); OPIATES URINE NEGATIVE (NEGATIVE); PHENCYCLIDINE URINE NEGATIVE (NEGATIVE)
[2025-04-21] MEDS: ACETAMINOPHEN 325 MG TAB PO ONE (00:32)
[2025-04-21 00:41] LABS: PLATELET COUNT, AUTOMATED 272 10^3/uL (150-450)
[2025-04-21 01:06] LABS: ETHYL ALCOHOL (ETHANOL) < 0.003 % (0.000-0.010)
[2025-04-21 01:07] LABS: SALICYLATE LEVEL < 3.0 MG/DL (<30)
[2025-04-21 01:14] LABS: ALT/SGPT 50 U/L (7.0-40); AST/SGOT 42 U/L (<34); CALCIUM LEVEL 9.0 MG/DL (8.5-10.1); CARBON DIOXIDE LEVEL 27 MMOL/L (20-31); CHLORIDE LEVEL 105 MMOL/L (98-107); CREATININE FOR GFR 0.58 MG/DL (0.55-1.30); GLOMERULAR FILTRATION RATE > 90.0 (>60); POTASSIUM SERUM 3.9 MMOL/L (3.5-5.1); SODIUM LEVEL 142 MMOL/L (136-145)
[2025-04-21 03:35] VITALS: BP 138/69; TEMP 96.6; O2SAT 100
== END 2025-04-21 11:28 | disposition home or self-care (01) ==
LOC: M ED 20:17
DX: Z76.5 Malingerer [conscious simulation] (principal); F60.3 Borderline personality disorder; F90.9 Attention-deficit hyperactivity disorder, unspecified type; F31.9 Bipolar disorder, unspecified; Z88.0 Allergy status to penicillin; Z88.8 Allergy status to other drugs, medicaments and biological substances; Z79.899 Other long term (current) drug therapy

== ENCOUNTER 2025-04-22 01:05 | Emergency (ER) | payer OTHER ==
[2025-04-22 02:29] LABS: AMPHETAMINES LEVEL URINE NEGATIVE (NEGATIVE); BARBITURATES URINE NEGATIVE (NEGATIVE); BENZODIAZEPINES URINE NEGATIVE (NEGATIVE); CANNABINOIDS URINE NEGATIVE (NEGATIVE); COCAINE METABOLITE URINE NEGATIVE (NEGATIVE); METHADONE URINE NEGATIVE (NEGATIVE); OPIATES URINE NEGATIVE (NEGATIVE); PHENCYCLIDINE URINE NEGATIVE (NEGATIVE)
[2025-04-22] MEDS: ONDANSETRON 4MG ORAL DISINTEGRATING TAB PO ONE (05:06)
[2025-04-22] MEDS: MIDAZOLAM INJ 2 MG/2 ML VIAL IV STA (06:03)
[2025-04-22] MEDS: diphenhydrAMINE 50 MG/ML VIAL IM ONE (06:04)
[2025-04-22] MEDS: HALOPERIDOL LACTATE 5 MG/ML VIAL IM ONE (06:04)
[2025-04-22 07:15] VITALS: BP 114/55; TEMP 97.4; O2SAT 100
== END 2025-04-22 07:45 | disposition home or self-care (01) ==
LOC: M ED 01:05
DX: Z76.5 Malingerer [conscious simulation] (principal); F10.10 Alcohol abuse, uncomplicated; Z88.0 Allergy status to penicillin; Z88.8 Allergy status to other drugs, medicaments and biological substances; Z79.899 Other long term (current) drug therapy

== ENCOUNTER 2025-04-22 21:27 | Emergency (ER) | payer OTHER ==
[~2025-04-22] VITALS: Ht 167.6 cm; Wt 137.5 kg
[2025-04-22 22:48] LABS: PLATELET COUNT, AUTOMATED 312 10^3/uL (150-450)
[2025-04-22 23:10] LABS: ETHYL ALCOHOL (ETHANOL) < 0.003 % (0.000-0.010)
[2025-04-22 23:11] LABS: AMPHETAMINES LEVEL URINE NEGATIVE (NEGATIVE); BARBITURATES URINE NEGATIVE (NEGATIVE); CANNABINOIDS URINE NEGATIVE (NEGATIVE); COCAINE METABOLITE URINE NEGATIVE (NEGATIVE); METHADONE URINE NEGATIVE (NEGATIVE); OPIATES URINE NEGATIVE (NEGATIVE); PHENCYCLIDINE URINE NEGATIVE (NEGATIVE)
[2025-04-22 23:12] LABS: ALT/SGPT 39 U/L (7.0-40); AST/SGOT 24 U/L (<34); CALCIUM LEVEL 9.1 MG/DL (8.5-10.1); CARBON DIOXIDE LEVEL 27 MMOL/L (20-31); CHLORIDE LEVEL 103 MMOL/L (98-107); CREATININE FOR GFR 0.66 MG/DL (0.55-1.30); GLOMERULAR FILTRATION RATE > 90.0 (>60); POTASSIUM SERUM 4.3 MMOL/L (3.5-5.1); SALICYLATE LEVEL < 3.0 MG/DL (<30); SODIUM LEVEL 140 MMOL/L (136-145)
[2025-04-22 23:31] LABS: BENZODIAZEPINES URINE POSITIVE (NEGATIVE)
[2025-04-22 23:53] LABS: HCG, SERUM QUALITATIVE NEGATIVE (NEGATIVE)
[2025-04-23] MEDS: ONDANSETRON 4MG ORAL DISINTEGRATING TAB PO PRN (00:25)
[2025-04-23] MEDS: ACETAMINOPHEN 500 MG TAB PO PRN (00:26)
[2025-04-23 13:45] VITALS: BP 139/69; TEMP 97.8; O2SAT 94
== END 2025-04-23 13:50 | disposition home or self-care (01) ==
LOC: M ED 21:27
DX: Z76.5 Malingerer [conscious simulation] (principal); F32.A Depression, unspecified; F43.10 Post-traumatic stress disorder, unspecified; F41.9 Anxiety disorder, unspecified; Z88.0 Allergy status to penicillin; Z88.8 Allergy status to other drugs, medicaments and biological substances; Z79.899 Other long term (current) drug therapy
CPT/HCPCS: 36415; 80048; 80076; 80143; 80307; 82077; 84443; 84703; 85027; 93005; 99285; J1200; J1630; J2250

== ENCOUNTER 2025-04-23 20:20 | Emergency (ER) | payer OTHER ==
[2025-04-23 20:23] VITALS: BP 115/54; TEMP 98.1; O2SAT 99
== END 2025-04-24 01:47 | disposition home or self-care (01) ==
LOC: M ED 20:20
DX: Z76.5 Malingerer [conscious simulation] (principal); F60.3 Borderline personality disorder; Z88.0 Allergy status to penicillin; Z88.8 Allergy status to other drugs, medicaments and biological substances; Z79.899 Other long term (current) drug therapy

== ENCOUNTER 2025-04-24 19:08 | Emergency (ER) | payer OTHER | END 2025-04-24 19:35 | disposition home or self-care (01) | LOC: M ED 19:08 | DX: F43.0 Acute stress reaction (principal); Z88.0 Allergy status to penicillin; Z88.8 Allergy status to other drugs, medicaments and biological substances ==